=== PATIENT | male | born 1955 | race American Indian/Alaskan Native ===

== ENCOUNTER 2017-04-19 17:14 | Emergency (ER) | payer MEDICARE ==
[2017-04-19 18:14] LABS: Basophils % (Auto) 0.7 % (0.0-1.8); Eosinophils % (Auto) 2.4 % (0.0-4.3); Hematocrit 34.1 % (35.5-45.6); Mean Corpuscular HGB Conc 32 % (32-34); Mean Corpuscular Hemoglobin 28 pg (28-32); Mean Corpuscular Volume 88 fl (84-94); Platelet Count 138 K/mm3 (140-440); Red Blood Count 3.89 M/mm3 (3.65-5.03); Red Cell Distribution Width 19.6 % (13.2-15.2); White Blood Count 3.7 K/mm3 (4.5-11.0)
[2017-04-19 18:38] LABS: Albumin 4.2 g/dL (3.9-5); Albumin/Globulin Ratio 1.2 %; Alkaline Phosphatase 129 units/L (35-129); Anion Gap 26 mmol/L; BUN/Creatinine Ratio 4.22; Blood Urea Nitrogen 46 mg/dL (9-20); Calcium 9.7 mg/dL (8.4-10.2); Carbon Dioxide 25 mmol/L (22-30); Glucose 117 mg/dL (75-100); Potassium 5.5 mmol/L (3.6-5.0); Sodium 133 mmol/L (137-145); Total Protein 7.6 g/dL (6.3-8.2)
[2017-04-19 18:52] LABS: Alanine Aminotransferase < 5 units/L (7-56)
--- NOTE | 2017-04-19 19:13 | Emergency Department Report ---
ED General Adult HPI - General Chief complaint: Altered Mental Status Stated complaint: AMS Time Seen by Provider: 04/19/17 17:49 Source: patient Mode of arrival: Stretcher Limitations: No Limitations - History of Present Illness Initial comments: Patient is a 61-year-old male past medical history of chronic kidney disease gets dialysis Saturday and Saturday. Cool was [facility] in [facility] for altered mental status. Patient is alert and oriented and he tells me that he doesn't know why he was sent here. Patient is able to have a conversation about many different subjects without any flight from the idea. Patient has no suicidal or homicidal ideation. Patient is blind. Patient denies being in any pain. And patient knows that he had dialysis yesterday. No paperwork was brought in from jail Behavior patient was exhibiting - Related Data Previous Rx's Medication Instructions Recorded Last Taken Type Folic Acid [Folvite] 1 mg PO QDAY tablet 08/01/15 1 Day Ago Rx Folic Acid [Folvite] 1 mg PO QDAY #30 tablet 10/14/16 Unknown Rx Gabapentin [Neurontin] 200 mg PO BID #60 capsule 10/14/16 Unknown Rx Isosorbide Dinitrate 30 mg PO DAILY #30 tablet 10/14/16 Unknown Rx Levofloxacin [Levaquin TAB] 250 mg PO Q48H #3 tablet 10/14/16 Unknown Rx Metoprolol [Lopressor TAB] 25 mg PO BID #60 tablet 10/14/16 Unknown Rx Sertraline [Zoloft] 75 mg PO QDAY #15 tablet 10/14/16 Unknown Rx Sevelamer Carbonate [Renvela] 800 mg PO TIDWM #60 tablet 10/14/16 Unknown Rx risperiDONE [RisperDAL] 1 mg PO BID #15 tablet 10/14/16 Unknown Rx traZODone [Desyrel] 50 mg PO QHS PRN #15 tablet 10/14/16 Unknown Rx Allergies Allergy/AdvReac Type Severity Reaction Status Date / Time haloperidol [From Haldol] AdvReac Unknown Verified 10/12/16 10:47 haloperidol lactate AdvReac Unknown Verified 10/12/16 10:47 [From Haldol] ED Review of Systems ROS: Stated complaint: AMS Other details as noted in HPI Constitutional: denies: chills, fever Eyes: as per HPI. denies: eye discharge, vision change ENT: denies: ear pain, throat pain Respiratory: denies: cough, shortness of breath, wheezing Cardiovascular: denies: chest pain, palpitations Endocrine: no symptoms reported Gastrointestinal: denies: abdominal pain, nausea, diarrhea Genitourinary: denies: urgency, dysuria Musculoskeletal: denies: back pain, joint swelling, arthralgia Skin: denies: rash, lesions Neurological: denies: headache, weakness, paresthesias Psychiatric: denies: anxiety, depression Hematological/Lymphatic: denies: easy bleeding, easy bruising ED Past Medical Hx - Past Medical History Hx Hypertension: Yes Hx CVA: Yes Hx Heart Attack/AMI: No Hx Congestive Heart Failure: No Hx Diabetes: Yes Hx Renal Disease: Yes (TTS dialysis (Dr. Layne)) Hx Asthma: No Hx COPD: No Hx HIV: No Additional medical history: A. FIB; Legally Blind. Anemia. Hyperparathyroidism. Hypocalcemia - Surgical History Hx Open Heart Surgery: Yes Hx Pacemaker: (defibrillator) Hx Internal Defibrillator: Yes Hx Appendectomy: Yes Additional Surgical History: AV fistula in the left upper extremity, hemorrhoidectomy - Social History Smoking Status: Never Smoker Substance Use Type: None - Medications Home Medications: Home Medications Medication Instructions Recorded Confirmed Last Taken Type Folic Acid [Folvite] 1 mg PO QDAY tablet 08/01/15 04/19/17 1 Day Ago Rx Folic Acid [Folvite] 1 mg PO QDAY #30 tablet 10/14/16 04/19/17 Unknown Rx Gabapentin [Neurontin] 200 mg PO BID #60 capsule 10/14/16 04/19/17 Unknown Rx Isosorbide Dinitrate 30 mg PO DAILY #30 tablet 10/14/16 04/19/17 Unknown Rx Levofloxacin [Levaquin TAB] 250 mg PO Q48H #3 tablet 10/14/16 04/19/17 Unknown Rx Metoprolol [Lopressor TAB] 25 mg PO BID #60 tablet 10/14/16 04/19/17 Unknown Rx Sertraline [Zoloft] 75 mg PO QDAY #15 tablet 10/14/16 04/19/17 Unknown Rx Sevelamer Carbonate [Renvela] 800 mg PO TIDWM #60 tablet 10/14/16 04/19/17 Unknown Rx risperiDONE [RisperDAL] 1 mg PO BID #15 tablet 10/14/16 04/19/17 Unknown Rx traZODone [Desyrel] 50 mg PO QHS PRN #15 tablet 10/14/16 04/19/17 Unknown Rx ED Physical Exam - General Limitations: No Limitations General appearance: alert, in no apparent distress - Head Head exam: Present: atraumatic, normocephalic - Eye Eye exam: Present: other (blind bilateraly ) - ENT ENT exam: Present: mucous membranes moist - Neck Neck exam: Present: normal inspection - Respiratory Respiratory exam: Present: normal lung sounds bilaterally. Absent: respiratory distress - Cardiovascular Cardiovascular Exam: Present: regular rate, normal rhythm. Absent: systolic murmur, diastolic murmur, rubs, gallop - GI/Abdominal GI/Abdominal exam: Present: soft, normal bowel sounds - Rectal Rectal exam: Present: deferred - Extremities Exam Extremities exam: Present: other (left AV fistula) - Back Exam Back exam: Present: normal inspection - Neurological Exam Neurological exam: Present: alert, oriented X3 - Psychiatric Psychiatric exam: Present: normal affect, normal mood - Skin Skin exam: Present: warm, dry, intact, normal color. Absent: rash ED Course Vital Signs 04/19/17 17:37 Temperature 98.2 F Pulse Rate 68 Respiratory 16 Rate Blood Pressure 142/62 O2 Sat by Pulse 96 Oximetry ED Medical Decision Making - Lab Data Result diagrams: 04/19/17 17:58 04/19/17 17:58 Lab Results 04/19/17 04/19/17 Range/Units 17:58 17:58 WBC 3.7 L (4.5-11.0) K/mm3 RBC 3.89 (3.65-5.03) M/mm3 Hgb 11.0 L (11.8-15.2) gm/dl Hct 34.1 L (35.5-45.6) % MCV 88 (84-94) fl MCH 28 (28-32) pg MCHC 32 (32-34) % RDW 19.6 H (13.2-15.2) % Plt Count 138 L (140-440) K/mm3 Lymph % (Auto) 11.1 L (13.4-35.0) % Travis % (Auto) 4.0 (0.0-7.3) % Eos % (Auto) 2.4 (0.0-4.3) % Baso % (Auto) 0.7 (0.0-1.8) % Lymph # 0.4 L (1.2-5.4) K/mm3 Travis # 0.1 (0.0-0.8) K/mm3 Eos # 0.1 (0.0-0.4) K/mm3 Baso # 0.0 (0.0-0.1) K/mm3 Seg Neutrophils % 81.8 H (40.0-70.0) % Seg Neutrophils # 3.0 (1.8-7.7) K/mm3 Sodium 133 L (137-145) mmol/L Potassium 5.5 H (3.6-5.0) mmol/L Chloride 88.0 L (98-107) mmol/L Carbon Dioxide 25 (22-30) mmol/L Anion Gap 26 mmol/L BUN 46 H (9-20) mg/dL Creatinine 10.9 H (0.8-1.5) mg/dL Estimated GFR 6 ml/min BUN/Creatinine Ratio 4.22 % Glucose 117 H (75-100) mg/dL Calcium 9.7 (8.4-10.2) mg/dL Total Bilirubin 0.50 (0.1-1.2) mg/dL AST 8 (5-40) units/L ALT < 5 L (7-56) units/L Alkaline Phosphatase 129 (35-129) units/L Total Protein 7.6 (6.3-8.2) g/dL Albumin 4.2 (3.9-5) g/dL Albumin/Globulin Ratio 1.2 % - EKG Data -: EKG Interpreted by Me - EKG Data 04/19/17 19:12 EKG shows normal sinus rhythm normal axis no ST segment elevation or peak T waves or any T-wave inversion. - Radiology Data Radiology results: report reviewed, image reviewed Chest x-ray: Shows cardiomegaly no acute cardiopulmonary disease - Medical Decision Making Chief medical diagnosis: Hyperkalemia Differential medical diagnosis: Hypoglycemia, pneumonia, uremia On the EKG CBC CMP and chest x-ray Patient's laboratory findings are within normal limits. Patient only has mildly elevated potassium and is scheduled to get dialysis tomorrow. Patient is not altered through my and the nurses assessment since he came here. Discussed plan with patient and he agrees with plan. I will send patient back to jail. Critical care attestation.: If time is entered above; I have spent that time in minutes in the direct care of this critically ill patient, excluding procedure time. ED Disposition Clinical Impression: ESRD (end stage renal disease), Confusion Disposition: DC-01 TO HOME OR SELFCARE Is pt being admited?: No Does the pt Need Aspirin: No Condition: Stable Instructions: Chronic Kidney Disease (ED) Referrals: PRIMARY CARE, [Primary Care Provider] - 3-5 Days
--- NOTE | 2017-04-19 20:03 | XRay Report ---
FINAL REPORT EXAM: XR CHEST 1V AP HISTORY: cxr altered mental status TECHNIQUE: AP portable view of the chest PRIORS: None. FINDINGS: Lines, tubes, and devices: Metallic device overlies the heart. An endovascular stent graft is present in the left axillary region. Lungs and pleura: Trachea is normal in position. Lungs are clear of infiltrate, pleural effusion, vascular congestion, or pneumothorax. Cardiomediastinal silhouette: Cardiac silhouette is enlarged.. Other: Bony structures are intact. IMPRESSION: No acute cardiopulmonary process seen. Cardiomegaly.
[2017-04-20 04:29] VITALS: BP 168/82
== END 2017-04-20 01:30 | disposition home or self-care (01) ==
LOC: ED 17:14
DX: E11.22 Type 2 diabetes mellitus with diabetic chronic kidney disease (principal); R41.0 Disorientation, unspecified; I12.0 Hypertensive chronic kidney disease with stage 5 chronic kidney disease or end stage renal disease; N18.6 End stage renal disease; Z99.2 Dependence on renal dialysis
CPT/HCPCS: 36415; 71010; 80053; 85025; 93005; 93010; 99284

== ENCOUNTER 2017-11-14 07:05 | Outpatient (CLI) | payer MEDICARE ==
--- NOTE | 2017-11-18 13:56 | PET Report ---
PET/CT:11/14/17 07:05:00 CLINICAL: Right lower lung nodule. RADIOPHARMACEUTICAL: 13.039mCi F18-FDG. COMPARISON: None. TECHNIQUE- Following intravenous injection of F-18 FDG and an approximately 60 minute uptake period, CT and PET images from the mid skull to the upper thighs were acquired with the patient in the fasted state. No contrast was administered. The CT protocol used for this PET CT study is designed for attenuation correction and anatomic localization of PET abnormalities. This cottrell blower CT is not desired to produce and cannot replace, [id number] diagnostic CT scans with specific imaging protocols for different body parts and indications. Plasma glucose at the time of this test: 98g/dl. The standardized uptake values (SUV) are normalized to patient body weight and indicate the highest activity concentration (SUV max) in a given disease site. FINDINGS: Brain--Physiologic FDG uptake in the visualized regions of the brain. Neck--Physiologic FDG uptake in mucosal structures. Chest--Physiologic FDG uptake in mediastinal blood pool and myocardium. Lungs--No abnormal uptake. A 1.3 cm noncalcified pleural-based nodule of the superior segment of the right lower lobe. It demonstrates minimal FDG uptake with SUV 2.39. No other lung nodule. Multilobar bilateral diffuse groundglass lung opacities. Pleura/pericardium--No abnormal uptake. Thoracic nodes--No abnormal uptake. Calcified mediastinal and right hilar lymph nodes. Hepatobiliary--No abnormal uptake. Liver background SUV mean, as a reference for comparing FDG studies, is 3.2 . No liver mass. Spleen--No abnormal uptake. Pancreas--No abnormal uptake. Adrenal Glands--No abnormal uptake. Kidneys/Ureters/Bladder--No abnormal uptake. The kidneys are small with bilateral renal parenchymal thinning and normal nondilated renal collecting systems and ureters. Abdominopelvic Nodes--No abnormal uptake. Bowel/Peritoneum/Mesentery--No abnormal uptake. Pelvic organs--No abnormal uptake. Bones/Soft Tissues--No abnormal uptake. Nonspecific diffuse increase density of the skeleton. IMPRESSION- 1. A 1.3 cm noncalcified pleural-based right lower lobe superior segment lung nodule with mild FDG uptake. It may be amenable to CT-guided percutaneous needle biopsy. 2. Nonspecific multilobar bilateral diffuse groundglass like opacity. 3. Nonspecific increased density of the bones with differential including renal osteodystrophy and prostate cancer metastasis.
== END 2017-11-14 07:06 | disposition home or self-care (01) ==
LOC: PET 07:05
PROVIDERS: ATTEND Internal Medicine Pulmonary Disease
DX: C78.89 Secondary malignant neoplasm of other digestive organs (principal); N25.0 Renal osteodystrophy; R91.1 Solitary pulmonary nodule; Z77.090 Contact with and (suspected) exposure to asbestos; Z79.899 Other long term (current) drug therapy
CPT/HCPCS: 78815; 82962; A9552

== ENCOUNTER 2018-01-20 07:42 | Day surgery (SDC) | payer MEDICARE ==
[~2018-01-20 07:42] MED LIST: ANCEF/STERILE WATER 2 GM/20 ML 2 GM/20 ML SYRINGE IV NR; NACL 0.9% 1000 ML 1,000 ML IV SCH
[2018-01-20 09:11] LABS: Hematocrit 33.7 % (35.5-45.6); Hemoglobin 10.6 gm/dl (11.8-15.2); Red Blood Count 4.03 M/mm3 (3.65-5.03)
[2018-01-20 09:12] LABS: Basophils % (Auto) 0.6 % (0.0-1.8); Eosinophils # (Auto) 0.2 K/mm3 (0.0-0.4); Eosinophils % (Auto) 5.9 % (0.0-4.3); Lymphocytes # (Auto) 0.7 K/mm3 (1.2-5.4); Lymphocytes % (Auto) 20.8 % (13.4-35.0); Mean Corpuscular HGB Conc 31 % (32-34); Mean Corpuscular Hemoglobin 26 pg (28-32); Mean Corpuscular Volume 84 fl (84-94); Monocytes # (Auto) 0.4 K/mm3 (0.0-0.8); Monocytes % (Auto) 12.6 % (0.0-7.3); Platelet Count 167 K/mm3 (140-440); Red Cell Distribution Width 19.9 % (13.2-15.2)
[2018-01-20 09:31] LABS: Calcium 9.7 mg/dL (8.4-10.2)
[2018-01-20] MEDS ORDERED: DIPRIVAN 10 MG/ML IV ONE (10:36)
[2018-01-20] MEDS ORDERED: DILAUDID ONE (10:56)
[2018-01-20] MEDS ORDERED: XYLOCAINE MPF 2% ONE (10:56)
[2018-01-20] MEDS ORDERED: MARCAINE 0.5% 0 ML INFILTRATI ONE (11:04)
[2018-01-20] MEDS ORDERED: ZOFRAN ONE (11:05)
--- NOTE | 2018-01-20 12:34 | Short Stay Summary ---
Short Stay Documentation Date of service: 01/20/18 Narrative H&P: See H&P - History H&P: obtained from office - Allergies and Medications Current Medications: Allergies haloperidol [From Haldol] Adverse Reaction (Verified 10/12/16 10:47) Unknown haloperidol lactate [From Haldol] Adverse Reaction (Verified 10/12/16 10:47) Unknown Home Medications Medication Instructions Recorded Confirmed Last Taken Type Folic Acid [Folvite] 1 mg PO QDAY tablet 08/01/15 01/20/18 01/19/18 09:00 Rx Sertraline [Zoloft] 75 mg PO QDAY #15 tablet 10/14/16 01/20/18 01/19/18 09:00 Rx Sevelamer Carbonate [Renvela] 800 mg PO TIDWM #60 tablet 10/14/16 01/14/18 1 Week Ago Rx ~11/13/17 risperiDONE [RisperDAL] 1 mg PO BID #15 tablet 10/14/16 01/20/18 01/19/18 17:00 Rx traZODone [Desyrel] 50 mg PO QHS PRN #15 tablet 10/14/16 01/20/18 01/19/18 19: 00 Rx Aspirin EC [Aspirin Enteric Coated 81 mg PO QDAY #30 tablet 10/02/17 01/20/18 09:00 Rx TAB] Gabapentin [Neurontin] 100 mg PO QHS #60 capsule 10/02/17 01/20/18 01/19/18 19: 00 Rx ISOSORBIDE MONOnitrate [Imdur ER] 30 mg PO DAILY #30 tablet 10/02/17 01/20/18 09:00 Rx Metoprolol [Lopressor TAB] 50 mg PO BID #30 tablet 10/02/17 01/20/18 01/19/18 17 :00 Rx Minoxidil [Loniten] 2.5 mg PO BID #60 tablet 10/02/17 01/20/18 01/19/18 17:00 Rx Active Medications Cefazolin Sodium (Ancef/Sterile Water 2 Gm/20 Ml) 2 gm in 20 mls @ 80 mls/hr IV PREOP NR; Protocol Stop: 01/20/18 23:59 Sodium Chloride (Nacl 0.9% 1000 Ml) 1,000 mls @ 42 mls/hr IV DIRECT SANCHEZ Last Admin: 01/20/18 09:15 Dose: 42 mls/hr - Brief post op/procedure progress note Date of procedure: 01/20/18 Pre-op diagnosis: Left Fourth Toe Infection Post-op diagnosis: same Procedure: Amputation of Left Fourth Toe Anesthesia: MIGUEL Surgeon: JOSUÉ CROUCH Estimated blood loss: 50-100ml Pathology: list (left fourth toe) Specimen disposition: to lab Condition: stable - Disposition Condition at discharge: Good Disposition: DC/[place]-03 [facility] Short Stay Discharge Plan Wound: remove dressing (48 Hours) Follow up with: PRIMARY CARE, [Primary Care Provider] - 7 Days JOSUÉ CROUCH MD [Staff Physician] - 14 Days Prescriptions: HYDROcodone/APAP 7.5-325 [[place] 7.5/325] 1 each PO Q6HR PRN #40 tablet PRN Reason: Pain
--- NOTE | 2018-01-20 12:43 | Operative Report ---
Operative Report Operative Report: Date of Procedure: 01/20/2018 Pre-operative Diagnosis: Left Fourth Toe Infection Post-operative Diagnosis: Same Procedure(s): Amputation of Left Fourth Toe Surgeon: Rubin Francis M.D. House Worker: None Anesthesia: Gen. Endotracheal Anesthesia EBL: Minimal Counts: Correct Complications: None Condition: Stable Findings: Fourth toe was amputated with excellent bleeding edges no evidence of purulence at the base. Specimen: Left fourth toe sent to pathology. Indication: The patient is a 62-year-old male with a history of ulceration of the left fourth toe and a remote history of left fifth toe amputation. He had an ultrasound that demonstrated adequate arterial flow for healing however despite local wound care he was unable to heal the wound. He is in need of left fourth toe limitation. He was given the risks, benefits, and alternative procedures and consents to the procedure. Description of Procedure: The patient was brought to the operating room and laid in supine position. After general endotracheal anesthesia was achieved his left foot was prepped and draped in usual sterile fashion. A circumferential incision was created at the base of the toe and carried down to the proximal phalanx using cautery. The toe was then transected at the metacarpophalangeal joint. Hemostasis was achieved with direct pressure and cautery. There was tension and difficulty closing the wound so I extended the incision proximally along the fourth metacarpal and then created dermal flaps on the medial and lateral aspect of the incision. Once these flaps were created and was unable to close the incision in 2 layers using 3-0 Vicryl in interrupted fashion the deep dermal layer and 2-0 Ethilon in interrupted vertical mattress fashion to reapproximate the skin. The wound was then dressed with Xeroform gauze, Kerlix roll, and a 4 inch Davion bandage. The patient tolerated the procedure well. All sponge, needle , and instrument counts were correct. The patient was taken to the recovery area in stable condition.
[2018-01-20] MEDS ORDERED: ALBURX 25% (ALBUMIN) IV ONE (13:00)
[2018-01-20 16:04] VITALS: BP 128/78
--- NOTE | 2018-01-20 19:30 | Anesthesia Day of Surgery ---
Anesthesia Day of Surgery - Day of Surgery Patient Examined: Yes Patient H&P Reviewed: Yes Patient is NPO: Yes
--- NOTE | 2018-01-20 19:30 | Anesthesia Consultation ---
Anesthesia Consult and Med Hx Date of service: 01/20/18 - Airway Anesthetic Teeth Evaluation: Poor, Edentulous ROM Head & Neck: Adequate Mental/Hyoid Distance: Adequate Mallampati Class: Class III Intubation Access Assessment: Possibly Difficult - Pulmonary Exam CTA: Yes - Cardiac Exam Cardiac Exam: RRR - Pre-Operative Health Status ASA Pre-Surgery Classification: ASA4 Proposed Anesthetic Plan: General - Pulmonary Hx Smoking: No Hx Asthma: No COPD: No Hx Pneumonia: No Hx Sleep Apnea: No (QUIQUE PRE SCREEN HIGH RISK) - Cardiovascular System Hx Hypertension: Yes Hx Heart Attack/AMI: No Hx Pacemaker: Yes (defibrillator) Hx Internal Defibrillator: Yes - Central Nervous System CVA: Yes (STATES NO DEFICITS) Hx Psychiatric Problems: Yes (HX SUCIDE THOUGHTS, PARANOID) - Endocrine Hx Renal Disease: Yes (TTS dialysis (Dr. Layne)) Hx End Stage Renal Disease: Yes - Hematic Hx Anemia: Yes - Other Systems Hx Cancer: No
--- NOTE | 2018-01-20 19:31 | Post Anesthesia Evaluation ---
- Post Anesthesia Evaluation Patient Participated: Yes Airway Patent: Yes Stable Respiratory Function: Yes Nausea/Vomiting: No Temp > 96.8F: Yes Pain Manageable: Yes Adequeate Hydration: Yes Anesthesia Complications: No
== END 2018-01-20 15:44 ==
LOC: OR 07:42
PROVIDERS: ATTEND Surgery Vascular Surgery
DX: M86.672 Other chronic osteomyelitis, left ankle and foot (principal); I70.245 Atherosclerosis of native arteries of left leg with ulceration of other part of foot; I70.262 Atherosclerosis of native arteries of extremities with gangrene, left leg; I12.0 Hypertensive chronic kidney disease with stage 5 chronic kidney disease or end stage renal disease; N18.6 End stage renal disease; Z99.2 Dependence on renal dialysis; Z88.8 Allergy status to other drugs, medicaments and biological substances; Z95.810 Presence of automatic (implantable) cardiac defibrillator; Z86.73 Personal history of transient ischemic attack (TIA), and cerebral infarction without residual deficits
CPT/HCPCS: 28820; 36415; 80048; 82962; 85025; 88305; 88311; J0690; J1170; J2405; J2704; J7030; P9047

== ENCOUNTER 2018-08-26 11:45 | Inpatient (IN) | payer MEDICARE ==
[2018-08-26 13:07] LABS: Hematocrit 27.9 % (35.5-45.6); Hemoglobin 8.7 gm/dl (11.8-15.2); Mean Corpuscular HGB Conc 31 % (32-34); Mean Corpuscular Volume 84 fl (84-94); Platelet Count 128 K/mm3 (140-440); Red Blood Count 3.34 M/mm3 (3.65-5.03)
--- NOTE | 2018-08-26 13:07 | XRay Report ---
AP CHEST: HISTORY: Infection AP view of the chest demonstrates a normal mediastinal and cardiac contour with clear lungs and normal bony and soft tissue structures. IMPRESSION: No acute process.
[2018-08-26 13:08] LABS: Red Cell Distribution Width 23.9 % (13.2-15.2)
--- NOTE | 2018-08-26 13:18 | History and Physical Report ---
History of Present Illness Chief complaint: confused History of present illness: 63 YO Male [facility] Facility Resident at [facility] Resident with HTN, CAD S/P CABG, CVA, DM, Atrial Fib, Anemia, Hyperparathyroidism, Hypocalcemia, ESRD on HD, Schizophrenia presents to ED for evaluation. Pt confused and lethargic and unable to provide history. Pt history taken from SNF staff, ED staff, and medical record. Pt presents to ED for evaluation. Pt was seen and evaluated as per nephrology service, and was found to have malfunctioning AV Fistula and request Vascular surgery evaluation for AVF evaluation. Vascular surgery service notified by Nephrology team. Pt seen and evaluated in ED and found to have ESRD, Encephalopathy, Sinus Bradycardia. Pt found to have poor prognosis. Pt admitted to IMCU. per staff, the patient was found to be confused and lethargic. EMS was notified, and upon arrival the patient was confused and lethargic. Pt transported to [facility] for evaluation. Pt seen and evaluated in ED and found to have ESRD, Encephalopathy, and acute respiratory failure. Pt is able to protect his airway. Pt admitted to medical floor. Nephrology team consulted in ED. Past History Past Medical History: COPD, diabetes, ESRD, heart failure, hypertension, stroke Past Surgical History: appendectomy, CABG, Other (hemorrhoidectomy, AV Fistula, ICD) Social history: . denies: smoking, alcohol abuse, prescription drug abuse Family history: diabetes, hypertension - History of Present Illness Initial Comments: Mr. Mims is a 63 yo male with hx of HTN, diabetes, schizophrenia, ESRD on HD referred to ED by nephrology service for evaluation of LUE AVF infection. Concerned for fistula abscess. Mr. Mims is nonverbal. Most recently admitted to hospital June 11. Hx is limited. Hx obtained through EMR and documentation from HD center. According discharge summary, family did consider but declined hospice care. He is a [place] resident. MD Complaint: decreased responsiveness -: month(s) (several months) Severity: severe Consistency of Symptoms: getting worse Context: history of similar presen Associated Symptoms: other (nonverbal) - Related Data Home Medications Medication Instructions Recorded Confirmed Last Taken Acetaminophen [Acetaminophen TAB] 1,000 mg PO Q12H PRN 03/13/18 06/04/18 Unknown Insulin Aspart [NovoLOG Flexpen] 0 units SUB-Q QWEEK 03/13/18 06/04/18 Unknown Sertraline [Zoloft] 50 mg PO DAILY 03/13/18 06/04/18 Unknown risperiDONE [RisperDAL] 1 mg PO Q12H 03/13/18 06/04/18 Unknown Aspirin EC [Aspirin Enteric Coated 81 mg PO DAILY 03/18/18 06/04/18 Unknown TAB] Docusate Sodium [Colace CAP] 100 mg PO BID 03/18/18 06/04/18 Unknown Folic Acid [Folvite] 1 mg PO DAILY 03/18/18 06/04/18 Unknown ISOSORBIDE MONOnitrate [Imdur ER] 30 mg PO DAILY 03/18/18 06/04/18 Unknown Metoprolol [Lopressor TAB] 50 mg PO BID 03/18/18 06/04/18 Unknown Minoxidil [Loniten] 2.5 mg PO BID 03/18/18 06/04/18 Unknown Sevelamer Carbonate [Renvela] 800 mg PO TIDWM 03/18/18 06/04/18 Unknown Previous Rx's Medication Instructions Recorded Last Taken Type Gabapentin [Neurontin] 100 mg PO QHS #60 capsule 10/02/17 01/19/18 19:00 Rx Morphine ER [Ms Contin ER] 15 mg PO Q12H #7 tablet 03/15/18 Unknown Rx HYDROcodone/APAP 5-325 [[place] 1 each PO Q12HR PRN #7 tablet 05/22/18 Unknown Rx 5-325 mg TAB] Famotidine [Pepcid] 20 mg PO DAILY #30 tablet 06/09/18 Unknown Rx Allergies Allergy/AdvReac Type Severity Reaction Status Date / Time haloperidol [From Haldol] AdvReac Unknown Verified 03/13/18 12:10 haloperidol lactate AdvReac Unknown Verified 03/13/18 12:10 [From Haldol] ED Review of Systems ROS: Stated complaint: POS PORT INFECTION Other details as noted in HPI Comment: Unobtainable due to pts medical conditions (AMS, chronically ill) ED Past Medical Hx - Past Medical History Previous Medical History?: Yes Hx Hypertension: Yes Hx CVA: Yes Hx Heart Attack/AMI: No Hx Congestive Heart Failure: Yes Hx Diabetes: Yes Hx Renal Disease: Yes (TTS dialysis (Dr. Layne)) Hx Asthma: No Hx COPD: No Hx HIV: No Additional medical history: A. FIB; Legally Blind. Iron-deficiency Anemia. Hyperparathyroidism. Hypocalcemia. renal osteodystrophy - Surgical History Past Surgical History?: Yes Hx Open Heart Surgery: Yes Hx Pacemaker: Yes (defibrillator) Hx Internal Defibrillator: Yes Hx Appendectomy: Yes Additional Surgical History: AV fistula in the left upper extremity, he morrhoidectomy - Social History Smoking Status: Unknown if ever smoked Substance Use Type: None - Medications Past History Past Medical History: atrial fib, anemia, CAD, diabetes, heart failure, hypertension, stroke Past Surgical History: appendectomy, CABG, Other (ICD, Hemorrhoidectomy) Social history: Family history: CAD, diabetes, hypertension Medications and Allergies Allergies Allergy/AdvReac Type Severity Reaction Status Date / Time haloperidol [From Haldol] AdvReac Unknown Verified 03/13/18 12:10 haloperidol lactate AdvReac Unknown Verified 03/13/18 12:10 [From Haldol] Home Medications Medication Instructions Recorded Confirmed Last Taken Type Gabapentin [Neurontin] 100 mg PO QHS #60 capsule 10/02/17 06/04/18 01/19/18 19:00 Rx Acetaminophen [Acetaminophen TAB] 1,000 mg PO Q12H PRN 03/13/18 06/04/18 Unknown History Insulin Aspart [NovoLOG Flexpen] 0 units SUB-Q QWEEK 03/13/18 06/04/18 Unknown History Sertraline [Zoloft] 50 mg PO DAILY 03/13/18 06/04/18 Unknown History risperiDONE [RisperDAL] 1 mg PO Q12H 03/13/18 06/04/18 Unknown History Morphine ER [Ms Contin ER] 15 mg PO Q12H #7 tablet 03/15/18 06/04/18 Unknown Rx Aspirin EC [Aspirin Enteric Coated 81 mg PO DAILY 03/18/18 06/04/18 Unknown History TAB] Docusate Sodium [Colace CAP] 100 mg PO BID 03/18/18 06/04/18 Unknown History Folic Acid [Folvite] 1 mg PO DAILY 03/18/18 06/04/18 Unknown History ISOSORBIDE MONOnitrate [Imdur ER] 30 mg PO DAILY 03/18/18 06/04/18 Unknown History Metoprolol [Lopressor TAB] 50 mg PO BID 03/18/18 06/04/18 Unknown History Minoxidil [Loniten] 2.5 mg PO BID 03/18/18 06/04/18 Unknown History Sevelamer Carbonate [Renvela] 800 mg PO TIDWM 03/18/18 06/04/18 Unknown History HYDROcodone/APAP 5-325 [[place] 1 each PO Q12HR PRN #7 tablet 05/22/18 06/04/18 U nknown Rx 5-325 mg TAB] Famotidine [Pepcid] 20 mg PO DAILY #30 tablet 06/09/18 Unknown Rx Review of Systems ROS unobtainable: due to mental status Exam - Constitutional Vitals: Temp Pulse Resp BP Pulse Ox 49 L 14 126/62 99 08/26/18 11:51 08/26/18 11:51 08/26/18 11:51 08/26/18 11:51 General appearance: Present: mild distress - EENT Eyes: Present: miosis - Neck Neck: Present: supple, normal ROM - Respiratory Respiratory effort: labored Respiratory: bilateral: diminished - Cardiovascular Rhythm: other (bradycardia) Heart Sounds: Present: S1 & S2 - Extremities Extremity abnormal: edema Peripheral Pulses: abnormal (1+,= bilaterally) - Abdominal General gastrointestinal: Present: soft, non-tender, non-distended, normal bowel sounds Male genitourinary: Present: normal - Integumentary Integumentary: Present: clear, dry, clammy, decreased turgor - Musculoskeletal Musculoskeletal: generalized weakness - Psychiatric Psychiatric: no appropriate mood/affect, no intact judgment & insight, no memory intact - Neurologic Neurologic: no focal deficits, moves all extremities, no gait normal Results - Labs CBC & Chem 7: 08/26/18 12:51 08/26/18 12:51 Labs: Abnormal lab results 08/26/18 Range/Units 12:51 WBC 3.2 L (4.5-11.0) K/mm3 RBC 3.34 L (3.65-5.03) M/mm3 Hgb 8.7 L (11.8-15.2) gm/dl Hct 27.9 L (35.5-45.6) % MCH 26 L (28-32) pg MCHC 31 L (32-34) % RDW 23.9 H (13.2-15.2) % Plt Count 128 L (140-440) K/mm3 Assessment and Plan - Patient Problems (1) End-stage renal disease needing dialysis Current Visit: Yes Status: Chronic Plan to address problem: Nephrology consulted in ED, dialysis as per renal team, strict I/O, monitor uop q shift, (2) Encephalopathy Current Visit: Yes Status: Acute Plan to address problem: CT head, neuro checks, Aspiration precautions, fall precautions, (3) Bradycardia Current Visit: No Status: Acute Plan to address problem: Remote telemetry, Admit to IMCU, Atropine at bedside. (4) AV fistula occlusion Current Visit: Yes Status: Acute Qualifiers: Encounter type: initial encounter Qualified Code(s): T82.898A - Other specified complication of vascular prosthetic devices, implants and grafts, initial encounter Plan to address problem: vascular surgery notified as per renal team, Consult placed as per renal team for AVF evaluation. (5) DVT prophylaxis Current Visit: No Status: Acute Plan to address problem: SCD to BLE while in bed
[2018-08-26] MEDS ORDERED: SODIUM CHLORIDE FLUSH SYRINGE 10 ML IV PRN (13:19)
[2018-08-26] MEDS ORDERED: PROVENTIL IH PRN (13:19)
[2018-08-26] MEDS ORDERED: ZOFRAN IV PRN (13:19)
[2018-08-26 13:30] LABS: Albumin 2.5 g/dL (3.9-5); Calcium 9.5 mg/dL (8.4-10.2)
--- NOTE | 2018-08-26 13:39 | Emergency Department Report ---
ED Altered Mental Status HPI - General Chief Complaint: Extremity Injury, Upper Stated Complaint: POS PORT INFECTION Time Seen by Provider: 08/26/18 12:44 Source: EMS Mode of arrival: Stretcher Limitations: Physical Limitation, Other - History of Present Illness Initial Comments: Mr. Mims is a 63 yo male with hx of HTN, diabetes, schizophrenia, ESRD on HD referred to ED by nephrology service for evaluation of LUE AVF infection. Concerned for fistula abscess. Mr. Mims is nonverbal. Most recently admitted to hospital June 11. Hx is limited. Hx obtained through EMR and documentation from HD center. According discharge summary, family did consider but declined hospice care. He is a [place] resident. MD Complaint: decreased responsiveness -: month(s) (several months) Severity: severe Consistency of Symptoms: getting worse Context: history of similar presen Associated Symptoms: other (nonverbal) - Related Data Home Medications Medication Instructions Recorded Confirmed Last Taken Acetaminophen [Acetaminophen TAB] 1,000 mg PO Q12H PRN 03/13/18 06/04/18 Unknown Insulin Aspart [NovoLOG Flexpen] 0 units SUB-Q QWEEK 03/13/18 06/04/18 Unknown Sertraline [Zoloft] 50 mg PO DAILY 03/13/18 06/04/18 Unknown risperiDONE [RisperDAL] 1 mg PO Q12H 03/13/18 06/04/18 Unknown Aspirin EC [Aspirin Enteric Coated 81 mg PO DAILY 03/18/18 06/04/18 Unknown TAB] Docusate Sodium [Colace CAP] 100 mg PO BID 03/18/18 06/04/18 Unknown Folic Acid [Folvite] 1 mg PO DAILY 03/18/18 06/04/18 Unknown ISOSORBIDE MONOnitrate [Imdur ER] 30 mg PO DAILY 03/18/18 06/04/18 Unknown Metoprolol [Lopressor TAB] 50 mg PO BID 03/18/18 06/04/18 Unknown Minoxidil [Loniten] 2.5 mg PO BID 03/18/18 06/04/18 Unknown Sevelamer Carbonate [Renvela] 800 mg PO TIDWM 03/18/18 06/04/18 Unknown Previous Rx's Medication Instructions Recorded Last Taken Type Gabapentin [Neurontin] 100 mg PO QHS #60 capsule 10/02/17 01/19/18 19:00 Rx Morphine ER [Ms Contin ER] 15 mg PO Q12H #7 tablet 03/15/18 Unknown Rx HYDROcodone/APAP 5-325 [[place] 1 each PO Q12HR PRN #7 tablet 05/22/18 Unknown Rx 5-325 mg TAB] Famotidine [Pepcid] 20 mg PO DAILY #30 tablet 06/09/18 Unknown Rx Allergies Allergy/AdvReac Type Severity Reaction Status Date / Time haloperidol [From Haldol] AdvReac Unknown Verified 03/13/18 12:10 haloperidol lactate AdvReac Unknown Verified 03/13/18 12:10 [From Haldol] ED Review of Systems ROS: Stated complaint: POS PORT INFECTION Other details as noted in HPI Comment: Unobtainable due to pts medical conditions (AMS, chronically ill) ED Past Medical Hx - Past Medical History Previous Medical History?: Yes Hx Hypertension: Yes Hx CVA: Yes Hx Heart Attack/AMI: No Hx Congestive Heart Failure: Yes Hx Diabetes: Yes Hx Renal Disease: Yes (TTS dialysis (Dr. Layne)) Hx Asthma: No Hx COPD: No Hx HIV: No Additional medical history: A. FIB; Legally Blind. Iron-deficiency Anemia. Hyperparathyroidism. Hypocalcemia. renal osteodystrophy - Surgical History Past Surgical History?: Yes Hx Open Heart Surgery: Yes Hx Pacemaker: Yes (defibrillator) Hx Internal Defibrillator: Yes Hx Appendectomy: Yes Additional Surgical History: AV fistula in the left upper extremity, hemorrhoidectomy - Social History Smoking Status: Unknown if ever smoked Substance Use Type: None - Medications Home Medications: Home Medications Medication Instructions Recorded Confirmed Last Taken Type Gabapentin [Neurontin] 100 mg PO QHS #60 capsule 10/02/17 06/04/18 01/19/18 19:00 Rx Acetaminophen [Acetaminophen TAB] 1,000 mg PO Q12H PRN 03/13/18 06/04/18 Unknown History Insulin Aspart [NovoLOG Flexpen] 0 units SUB-Q QWEEK 03/13/18 06/04/18 Unknown History Sertraline [Zoloft] 50 mg PO DAILY 03/13/18 06/04/18 Unknown History risperiDONE [RisperDAL] 1 mg PO Q12H 03/13/18 06/04/18 Unknown History Morphine ER [Ms Contin ER] 15 mg PO Q12H #7 tablet 03/15/18 06/04/18 Unknown Rx Aspirin EC [Aspirin Enteric Coated 81 mg PO DAILY 03/18/18 06/04/18 Unknown History TAB] Docusate Sodium [Colace CAP] 100 mg PO BID 03/18/18 06/04/18 Unknown History Folic Acid [Folvite] 1 mg PO DAILY 03/18/18 06/04/18 Unknown History ISOSORBIDE MONOnitrate [Imdur ER] 30 mg PO DAILY 03/18/18 06/04/18 Unknown History Metoprolol [Lopressor TAB] 50 mg PO BID 03/18/18 06/04/18 Unknown History Minoxidil [Loniten] 2.5 mg PO BID 03/18/18 06/04/18 Unknown History Sevelamer Carbonate [Renvela] 800 mg PO TIDWM 03/18/18 06/04/18 Unknown History HYDROcodone/APAP 5-325 [[place] 1 each PO Q12HR PRN #7 tablet 05/22/18 06/04/18 Unknown Rx 5-325 mg TAB] Famotidine [Pepcid] 20 mg PO DAILY #30 tablet 06/09/18 Unknown Rx ED Physical Exam - General Limitations: Physical Limitation, Other General appearance: lethargic - Head Head exam: Present: atraumatic, normocephalic - Eye Eye exam: Present: other (right eye purulent discharge ?prosthesis no globe pr esent, left eye sluggish) - ENT ENT exam: Present: mucous membranes dry - Neck Neck exam: Present: normal inspection - Respiratory Respiratory exam: Absent: wheezes, rales, rhonchi - Cardiovascular Cardiovascular Exam: Present: bradycardia. Absent: rubs, gallop - GI/Abdominal GI/Abdominal exam: Present: soft, distended - Extremities Exam Extremities exam: Present: other (LUE healing scab in area of AV F, no erythema no tenderness) - Neurological Exam Neurological exam: Present: other (lethargic, no response to voice pain or voice.) - Psychiatric Psychiatric exam: Present: flat affect ED Course Vital Signs 08/26/18 08/26/18 11:50 11:51 Pulse Rate 49 L 49 L Respiratory 14 14 Rate Blood Pressure 126/62 Blood Pressure 126/62 [Right] O2 Sat by Pulse 99 99 Oximetry - Lab Data Result diagrams: 08/26/18 12:51 08/26/18 12:51 Lab Results 08/26/18 08/26/18 Range/Units 12:51 12:51 WBC 3.2 L (4.5-11.0) K/mm3 RBC 3.34 L (3.65-5.03) M/mm3 Hgb 8.7 L (11.8-15.2) gm/dl Hct 27.9 L (35.5-45.6) % MCV 84 (84-94) fl MCH 26 L (28-32) pg MCHC 31 L (32-34) % RDW 23.9 H (13.2-15.2) % Plt Count 128 L (140-440) K/mm3 [place] % (Auto) Yarn Mercerizer Operator Add Manual Diff Complete Total Counted 100 Seg Neuts % (Manual) 75.0 H (40.0-70.0) % Band Neutrophils % 0 % Lymphocytes % (Manual) 4.0 L (13.4-35.0) % Reactive Lymphs % (Man) 0 % Monocytes % (Manual) 6.0 (0.0-7.3) % Eosinophils % (Manual) 15.0 H (0.0-4.3) % Basophils % (Manual) 0 (0.0-1.8) % Metamyelocytes % 0 % Myelocytes % 0 % Promyelocytes % 0 % Blast Cells % 0 % Nucleated RBC % Not Reportable Seg Neutrophils # Man 2.4 (1.8-7.7) K/mm3 Band Neutrophils # 0.0 K/mm3 Lymphocytes # (Manual) 0.1 L (1.2-5.4) K/mm3 Abs React Lymphs (Man) 0.0 K/mm3 Monocytes # (Manual) 0.2 (0.0-0.8) K/mm3 Eosinophils # (Manual) 0.5 H (0.0-0.4) K/mm3 Basophils # (Manual) 0.0 (0.0-0.1) K/mm3 Metamyelocytes # 0.0 K/mm3 Myelocytes # 0.0 K/mm3 Promyelocytes # 0.0 K/mm3 Blast Cells # 0.0 K/mm3 WBC Morphology Not Reportable Hypersegmented Neuts Not Reportable Hyposegmented Neuts Not Reportable Hypogranular Neuts Not Reportable Smudge Cells Not Reportable Toxic Granulation Not Reportable Toxic Vacuolation Not Reportable Dohle Bodies Not Reportable Pelger-Huet Anomaly Not Reportable Tramaine Rods Not Reportable Platelet Estimate Consistent w auto Clumped Platelets Not Reportable Plt Clumps, EDTA Not Reportable Large Platelets Not Reportable Giant Platelets Not Reportable Platelet Satelliting Not Reportable Plt Morphology Comment Not Reportable RBC Morphology Not Reportable Dimorphic RBCs Not Reportable Polychromasia Not Reportable Hypochromasia Not Reportable Poikilocytosis 1+ Anisocytosis 1+ Microcytosis Not Reportable Macrocytosis Not Reportable Spherocytes Not Reportable Pappenheimer Bodies Not Reportable Sickle Cells Not Reportable Target Cells 1+ Tear Drop Cells Not Reportable Ovalocytes Few Helmet Cells Not Reportable [place] Bodies Not Reportable [place] Rings Not Reportable Hebert Cells Not Reportable Bite Cells Not Reportable Crenated Cell Not Reportable Elliptocytes Not Reportable Acanthocytes (Spur) Not Reportable Rouleaux Not Reportable Hemoglobin C Crystals Not Reportable Schistocytes Not Reportable Malaria parasites Not Reportable Jose Juan Bodies Not Reportable Hem Pathologist Commnt No Sodium 136 L (137-145) mmol/L Potassium 3.5 L (3.6-5.0) mmol/L Chloride 95.5 L (98-107) mmol/L Carbon Dioxide 31 H (22-30) mmol/L Anion Gap 13 mmol/L BUN 27 H (9-20) mg/dL Creatinine 5.1 H (0.8-1.5) mg/dL Estimated GFR 14 ml/min BUN/Creatinine Ratio 5 % Glucose 78 (75-100) mg/dL Calcium 9.5 (8.4-10.2) mg/dL Total Bilirubin 0.50 (0.1-1.2) mg/dL AST 12 (5-40) units/L ALT 8 (7-56) units/L Alkaline Phosphatase 102 (35-129) units/L Total Protein 6.1 L (6.3-8.2) g/dL Albumin 2.5 L (3.9-5) g/dL Albumin/Globulin Ratio 0.7 % - Medical Decision Making Mr. Mims presents with lethargy, bradycardia. Recent hospitalization for sepsis. AV fistula/access possible sepsis source according to nephrology service. I highly appreciate the assistance of Dr. Teran who provided orders for treatment and admission. Critical care attestation.: If time is entered above; I have spent that time in minutes in the direct care of this critically ill patient, excluding procedure time. ED Disposition Clinical Impression: End-stage renal disease needing dialysis Disposition: OP ADMIT IP TO THIS HOSP Is pt being admited?: Yes Does the pt Need Aspirin: No Condition: Fair
[2018-08-26 13:57] LABS: Basophils % (Manual) 0 % (0.0-1.8); Total Cells Counted 100
[2018-08-26 13:58] LABS: Anisocytosis 1+; Ovalocytes Few; Platelet Estimate Consistent w Auto; Poikilocytosis 1+; Target Cells 1+
[2018-08-26] MEDS ORDERED: ATROPINE IV ONE (15:36)
--- NOTE | 2018-08-26 17:21 | Consultation ---
History of Present Illness - Reason for Consult Consult date: 08/26/18 end stage renal disease Requesting physician: PADMA ODELL - History of Present Illness 63 YO Male Longterm Facility Resident at [facility] Resident with HTN, CAD S/P CABG, CVA, DM, Atrial Fib, Anemia, Hyperparathyroidism, Hypocalcemia, ESRD on HD, Schizophrenia presents to ED for evaluation. Pt confused and lethargic and unable to provide history. Pt history taken from SNF staff, ED staff, and medical record. Pt presents to ED for evaluation. Pt was seen and evaluated as per nephrology service, and was found to have malfunctioning AV Fistula and request Vascular surgery evaluation for AVF evaluation. Pt admitted to [facility]. Patient seen in the IMCU. Poor historian. Unable to get any additional information from him. Information obtained from patient's current chart. He undergoes hemodialysis at [facility] on TTS schedule. He was found to have an ulcerated area over his AV fistula. Therefore he was not dialyzed and sent to the emergency room for evaluation. His last dialysis treatment was on Saturday Past History Past Medical History: atrial fib, anemia, CAD, diabetes, heart failure, hypertension, stroke Past Surgical History: appendectomy, CABG, Other (ICD, Hemorrhoidectomy) Social history: Family history: CAD, diabetes, hypertension Medications and Allergies Allergies Allergy/AdvReac Type Severity Reaction Status Date / Time haloperidol [From Haldol] AdvReac Unknown Verified 03/13/18 12:10 haloperidol lactate AdvReac Unknown Verified 03/13/18 12:10 [From Haldol] Home Medications Medication Instructions Recorded Confirmed Last Taken Type Gabapentin [Neurontin] 100 mg PO QHS #60 capsule 10/02/17 06/04/18 01/19/18 19:0 0 Rx Acetaminophen [Acetaminophen TAB] 1,000 mg PO Q12H PRN 03/13/18 06/04/18 Unknown History Insulin Aspart [NovoLOG Flexpen] 0 units SUB-Q QWEEK 03/13/18 06/04/18 Unknown History Sertraline [Zoloft] 50 mg PO DAILY 03/13/18 06/04/18 Unknown History risperiDONE [RisperDAL] 1 mg PO Q12H 03/13/18 06/04/18 Unknown History Morphine ER [Ms Contin ER] 15 mg PO Q12H #7 tablet 03/15/18 06/04/18 Unknown Rx Aspirin EC [Aspirin Enteric Coated 81 mg PO DAILY 03/18/18 06/04/18 Unknown History TAB] Docusate Sodium [Colace CAP] 100 mg PO BID 03/18/18 06/04/18 Unknown History Folic Acid [Folvite] 1 mg PO DAILY 03/18/18 06/04/18 Unknown History ISOSORBIDE MONOnitrate [Imdur ER] 30 mg PO DAILY 03/18/18 06/04/18 Unknown History Metoprolol [Lopressor TAB] 50 mg PO BID 03/18/18 06/04/18 Unknown History Minoxidil [Loniten] 2.5 mg PO BID 03/18/18 06/04/18 Unknown History Sevelamer Carbonate [Renvela] 800 mg PO TIDWM 03/18/18 06/04/18 Unknown History HYDROcodone/APAP 5-325 [[place] 1 each PO Q12HR PRN #7 tablet 05/22/18 06/04/18 Unknown Rx 5-325 mg TAB] Famotidine [Pepcid] 20 mg PO DAILY #30 tablet 06/09/18 Unknown Rx Active Meds: Active Medications Acetaminophen (Tylenol) 650 mg PO Q4H PRN PRN Reason: Pain MILD(1-3)/Fever >100.5/HILL Albuterol (Proventil) 2.5 mg IH Q4HRT PRN PRN Reason: Shortness Of Breath Ondansetron HCl (Zofran) 4 mg IV Q8H PRN PRN Reason: Nausea And Vomiting Sodium Chloride (Sodium Chloride Flush Syringe 10 Ml) 10 ml IV BID SANCHEZ Sodium Chloride (Sodium Chloride Flush Syringe 10 Ml) 10 ml IV PRN PRN PRN Reason: LINE FLUSH Review of Systems ROS unobtainable: due to mental status Exam - Vital Signs Vital signs: Vital Signs Pulse Resp BP Pulse Ox 49 L 14 126/62 99 08/26/18 11:50 08/26/18 11:50 08/26/18 11:50 08/26/18 11:50 - General Appearance General appearance: well-developed, well-nourished, appears stated age EENT: PERRL, mucous membranes moist Neck: Present: neck supple, trachea midline. Absent: JVD/HJR, Masses Respiratory: Clear to Ascultation Heart: regular, irregularly irregular, normal heart rate, S1S2, no murmurs Gastrointestinal: Present: normal, normoactive bowel sounds Integumentary: no rash, other (1+ edema. AV fistula left upper arm. Good bruit and thrill. Ulcerated area noted over the access) Results - Lab Results 08/26/18 12:51 08/26/18 12:51 Most recent lab results Calcium 9.5 mg/dL (8.4-10.2) 08/26/18 12:51 Assessment and Plan Impression * End-stage renal disease and maintenance hemodialysis * Ulceration over AV access * Altered mental status * Schizophrenia * Chronic atrial fibrillation * Hypertension * Coronary artery disease * History of CVA Recommendations * Electrolyte and volume status appears to be acceptable today * No urgent indication for dialysis today * Plan to dialyze him tomorrow after evaluated by vascular surgery * No IV, BP or venipuncture in his access arm * Adjust diet and meds for ESRD state * Avoid nephrotoxins * Procrit with dialysis * Binders with meals * For the plan as per primary team and vascular surgery * Thank you very much for the consultation. Shall follow her along with you
[2018-08-26] MEDS ORDERED: NACL 0.9% 100 ML IV PRN (17:22)
--- NOTE | 2018-08-26 17:23 | Cat Scan Report ---
FINAL REPORT PROCEDURE: CT HEAD WO CONTRAST TECHNIQUE: Computerized tomography of the head was performed without contrast material. HISTORY: Altered mental status COMPARISON: Prior CT scan of the brain 05/13/2018 FINDINGS: Brain: There is no evidence of intracranial hemorrhage. No parenchymal hemorrhage is seen. No mass lesions or mass effect is identified. No abnormal extra-axial fluid collections or masses are seen. There is a moderate-sized old area of encephalomalacia involving the left cerebellar hemisphere. This is unchanged. There also smaller areas of encephalomalacia visualized in the posterior superior aspe ct of the right and left frontal lobes. There is some decreased density seen in the periventricular white matter without mass effect. This i s fairly symmetric and does not exhibit any mass effect consistent with gliosis probably on the basis of microvascular disease or white matter changes of aging. Ventricles: The ventricles, sulcal pattern and fissures are prominent consistent with atrophy. There is asymmetric prominence of the right lateral ventricle which appears to be secondary to the adjacent encephalomalacia and ex vacuo affect. This is unchanged. Bones: No evidence of acute fracture. 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 This was seen on the prior study. IMPRESSION: Stable exam. There is evidence of atrophy and gliosis. There is also evidence of old areas of encepha lomalacia right and left frontal lobes posteriorly superiorly and in the left cerebellar hemisphere. If symptoms persist or worsen consider follow-up CT scan or MRI for further evaluation. 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 This is unchanged.
--- NOTE | 2018-08-26 17:46 | Consultation ---
History of Present Illness - Reason for Consult Consult date: 08/26/18 - History of Present Illness 63yo AAM admitted via the [facility] ER due to an ulcerated LUE AVG. The pt is a poor historian. The history was taken from this and previous medical records. The avg was created by Dr Chaparro many years ago (initially as an avf then converted to AVG). No reports of fever per the nursing staff. A vascular surgery consult was requested to further evaluate. 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 denies: smoking, alcohol abuse Family history: CAD, diabetes, hypertension Medications and Allergies Allergies Allergy/AdvReac Type Severity Reaction Status Date / Time haloperidol [From Haldol] AdvReac Unknown Verified 03/13/18 12:10 haloperidol lactate AdvReac Unknown Verified 03/13/18 12:10 [From Haldol] Home Medications Medication Instructions Recorded Confirmed Last Taken Type Gabapentin [Neurontin] 100 mg PO QHS #60 capsule 10/02/17 08/26/18 01/19/18 19:00 Rx Acetaminophen [Acetaminophen TAB] 1,000 mg PO Q12H PRN 03/13/18 08/26/18 Unknown History Insulin Aspart [NovoLOG Flexpen] 0 units SUB-Q QWEEK 03/13/18 08/26/18 Unknown History risperiDONE [RisperDAL] 1 mg PO QAM 03/13/18 08/26/18 Unknown History Morphine ER [Ms Contin ER] 15 mg PO Q12H #7 tablet 03/15/18 08/26/18 Unknown Rx Aspirin EC [Aspirin Enteric Coated 81 mg PO DAILY 03/18/18 08/26/18 Unknown History TAB] Docusate Sodium [Colace CAP] 100 mg PO BID 03/18/18 08/26/18 Unknown History Folic Acid [Folvite] 1 mg PO DAILY 03/18/18 08/26/18 Unknown History ISOSORBIDE MONOnitrate [Imdur ER] 30 mg PO DAILY 03/18/18 08/26/18 Unknown History Metoprolol [Lopressor TAB] 50 mg PO BID 03/18/18 08/26/18 Unknown History Minoxidil [Loniten] 2.5 mg PO BID 03/18/18 08/26/18 Unknown History Sevelamer Carbonate [Renvela] 800 mg PO TIDWM 03/18/18 08/26/18 Unknown History HYDROcodone/APAP 5-325 [[place] 1 each PO Q12HR PRN #7 tablet 05/22/18 08/26/18 Unknown Rx 5-325 mg TAB] Famotidine [Pepcid] 20 mg PO DAILY #30 tablet 06/09/18 08/26/18 Unknown Rx Sertraline [Zoloft] 100 mg PO QDAY 08/26/18 08/26/18 Unknown History risperiDONE [Risperdal] 0.5 mg PO HS 08/26/18 08/26/18 Unknown History Active Meds: Active Medications Acetaminophen (Tylenol) 650 mg PO Q4H PRN PRN Reason: Pain MILD(1-3)/Fever >100.5/HILL Albuterol (Proventil) 2.5 mg IH Q4HRT PRN PRN Reason: Shortness Of Breath Sodium Chloride (Nacl 0.9%) 100 mls @ 999 mls/hr IV UMA PRN PRN Reason: Hypotension Cefazolin Sodium (Ancef/Sterile Water 2 Gm/20 Ml) 2 gm in 20 mls @ 80 mls/hr IV PREOP NR; Protocol Stop: 08/27/18 08:14 Ondansetron HCl (Zofran) 4 mg IV Q8H PRN PRN Reason: Nausea And Vomiting Sodium Chloride (Sodium Chloride Flush Syringe 10 Ml) 10 ml IV BID SANCHEZ Sodium Chloride (Sodium Chloride Flush Syringe 10 Ml) 10 ml IV PRN PRN PRN Reason: LINE FLUSH Review of Systems ROS unobtainable: due to mental status Exam - Constitutional Vitals: Temp Pulse Resp BP Pulse Ox 46 L 12 119/56 100 08/26/18 15:46 08/26/18 16:30 08/26/18 15:46 08/26/18 16:30 General appearance: Present: no acute distress - EENT Eyes: Absent: EOM intact (visually impaired) - Neck Neck: Present: supple - Respiratory Respiratory effort: normal - Extremities Extremities: abnormal (Palpable thrill LUE AVG, dime sized ulceration without erythema or drainage ~mid-graft) Extremity abnormal: edema (LUE swelling) - Psychiatric Psychiatric: no appropriate mood/affect, no intact judgment & insight, no cooperative - Neurologic Neurologic: other (rouses to verbal stimulus, but does not interact.) Results - Labs CBC & Chem 7: 08/26/18 12:51 08/26/18 12:51 Labs: Abnormal lab results 08/26/18 08/26/18 08/26/18 Range/Units 12:51 12:51 15:38 WBC 3.2 L (4.5-11.0) K/mm3 RBC 3.34 L (3.65-5.03) M/mm3 Hgb 8.7 L (11.8-15.2) gm/dl Hct 27.9 L (35.5-45.6) % MCH 26 L (28-32) pg MCHC 31 L (32-34) % RDW 23.9 H (13.2-15.2) % Plt Count 128 L (140-440) K/mm3 Seg Neuts % (Manual) 75.0 H (40.0-70.0) % Lymphocytes % (Manual) 4.0 L (13.4-35.0) % Eosinophils % (Manual) 15.0 H (0.0-4.3) % Lymphocytes # (Manual) 0.1 L (1.2-5.4) K/mm3 Eosinophils # (Manual) 0.5 H (0.0-0.4) K/mm3 Sodium 136 L (137-145) mmol/L Potassium 3.5 L (3.6-5.0) mmol/L Chloride 95.5 L (98-107) mmol/L Carbon Dioxide 31 H (22-30) mmol/L BUN 27 H (9-20) mg/dL Creatinine 5.1 H (0.8-1.5) mg/dL Lactic Acid 0.60 L (0.7-2.0) mmol/L Total Protein 6.1 L (6.3-8.2) g/dL Albumin 2.5 L (3.9-5) g/dL Assessment and Plan This patient was taken for HD today and noted to have an ulceration to the LUE AVG. Dialysis was not completed, and the pt was sent to the ER for further evaluation. A vascular surgery consult was requested to further evaluate. Pt will be set up for Perma-cath placement to provide reliable HD access, and a fistulagram to further eval for surgical options. Revision of access vs new access based upon these results. - Patient Problems (1) AV graft malfunction Current Visit: Yes Status: Acute (2) End stage renal disease on dialysis Current Visit: No Status: Chronic (3) Diabetes Current Visit: No Status: Acute (4) HTN (hypertension) Current Visit: No Status: Chronic Qualifiers: Hypertension type: essential hypertension Qualified Code(s): I10 - Essential (primary) hypertension (5) Altered mental status Current Visit: No Status: Chronic Qualifiers:
[2018-08-27 06:39] LABS: Basophils % (Auto) 1.4 % (0.0-1.8); Eosinophils # (Auto) 0.2 K/mm3 (0.0-0.4); Eosinophils % (Auto) 7.4 % (0.0-4.3); Hemoglobin 10.9 gm/dl (11.8-15.2); Lymphocytes # (Auto) 0.6 K/mm3 (1.2-5.4); Lymphocytes % (Auto) 19.2 % (13.4-35.0); Mean Corpuscular HGB Conc 31 % (32-34); Mean Corpuscular Volume 84 fl (84-94); Monocytes # (Auto) 0.4 K/mm3 (0.0-0.8); Monocytes % (Auto) 13.2 % (0.0-7.3); Platelet Count 120 K/mm3 (140-440); Red Blood Count 4.23 M/mm3 (3.65-5.03); Red Cell Distribution Width 24.1 % (13.2-15.2)
[2018-08-27 06:40] LABS: Hematocrit 35.6 % (35.5-45.6)
[2018-08-27 06:58] LABS: Calcium 9.7 mg/dL (8.4-10.2)
[2018-08-27] MEDS ORDERED: ANCEF/STERILE WATER 2 GM/20 ML 2 GM/20 ML SYRINGE IV NR (07:00)
[2018-08-27] MEDS: SODIUM CHLORIDE FLUSH SYRINGE 10 ML IV SCH ×2 (07:58→21:55)
[2018-08-27] MEDS ORDERED: VERSED ONE (08:28)
[2018-08-27] MEDS ORDERED: HEPARIN/NS 5000 UNIT/500ML(CATH LAB) 1,000 ML IR ONE (08:29)
[2018-08-27] MEDS ORDERED: SUBLIMAZE ONE (08:29)
[2018-08-27] MEDS ORDERED: NACL 0.9% 250ML 250 ML ONE (08:30)
[2018-08-27] MEDS: XYLOCAINE 2% INFILTRATI ONE ×3 (09:23→09:35)
[2018-08-27] MEDS ORDERED: ANCEF/STERILE WATER 2 GM/20 ML 2 GM/20 ML SYRINGE IV ONE (09:29)
[2018-08-27] MEDS: HEPARIN 10,000 UNITS/10 ML ONE ×2 (09:29→09:30)
[2018-08-27] MEDS ORDERED: LOPRESSOR PO SCH (10:00)
--- NOTE | 2018-08-27 10:18 | Operative Report ---
Operative Report Operative Report: Exam: Ultrasound and fluoroscopic guided placement of tunneled hemodialysis catheter, fistulogram with venoplasty Clinical indication: Patient with left upper extremity AV fistula with ulceration, fistulogram for preoperative planning, dialysis catheter placement for access Date: 08/27/2018 Procedure: Following an explanation of the risks, benefits and alternatives; written informed consent was obtained. The patient was brought to the angiographic suite and placed in supine position on the examination table. Initial ultrasound of the evaluation of his neck demonstrated patent internal jugular veins bilaterally. The right neck was chosen. The right neck was prepped and draped in the usual sterile fashion. 1% lidocaine was used for anesthesia. Under ultrasound guidance, the right internal jugular vein was cannulated with a 7 cm 18-gauge needle. A 0.035 guidewire was advanced into the IVC under fluoroscopy for anchoring and to document venous positioning. The needle was removed. An appropriate catheter exit site was chosen along the lateral right chest wall. 1% lidocaine was used for anesthesia at the catheter exit site and along the tunnel tract. A Bard 23 Glidepath tunneled hemodialysis catheter was then tunneled antegrade from the catheter exit site to the venotomy site. Following serial dilation over the guidewire under fluoroscopy, a 15 [place] peel-away sheath was placed over the guidewire under fluoroscopy and advanced centrally. The trocar and guidewire were removed. The catheter was placed with a peel-away sheath and positioned with the tip in the proximal right atrium. The peel-away sheath was removed. Both ports flushed and aspirated easily and more than lock with appropriate volumes with heparin. The venotomy site was closed using 3-0 Vicryl suture. 3-0 Vicryl suture was also applied to the catheter exit site. Sterile dressings were then applied. Attention was then turned to the patient's left upper extremity AV graft. Under ultrasound guidance, after was cannulated towards the venous anastomosis using a 7 cm 21-gauge needle. A 0.018 guidewire was advanced centrally. The needle was removed and a micro-sheath placed. The 0.018 guidewire was exchanged for a 0.035 guidewire and the micro-sheath exchanged for a 7 [place] vascular sheath. Venogram performed through the sheath demonstrates the body of the graft with extreme tortuosity. In the upper arm, there are tortuous fractured/crushed stents. Distal to the stents there is an area of 80% stenosis involving the axillary vein. Central veins are widely patent. With the aid of her vertebral catheter, the guidewire was advanced across the stenosis. Angioplasty was performed using a 10 mm balloon. Post angioplasty imaging demonstrated reduction of the stenosis to less than 20%. Brisk flow is present throughout the left. At this point, the catheters, guidewires and sheaths were removed and hemostasis achieved using 4-0 Vicryl suture and Dermabond. Manual compression was also utilized. A sterile dressing was then applied. The patient tolerated the procedure well. There were no immediate post procedure complications. Conscious sedation was performed under the guidance of radiologic nursing. Continuous cardiopulmonary monitoring was utilized. Impression: 1) Ultrasound and fluoroscopic guided placement of tunneled hemodialysis catheter via the right internal jugular vein. 2) Left upper extremity fistulogram demonstrating 80% stenosis within the axillary vein. Proximal to this there are numerous crushed and broken stents.
--- NOTE | 2018-08-27 12:07 | Progress Note ---
Assessment and Plan The patient will need penitentiary access. We will order ultrasound of the upper extremities to determine the best options for long-term access. Subjective Date of service: 08/27/18 Principal diagnosis: malfunctioning dialysis access Interval history: Patient with a history of left upper extremity AV graft with overlying skin ulceration. The graft does not appear to be overtly infected. The patient underwent placement of a right IJ PermCath and fistulogram of the graft. The graft demonstrates numerous stents extending into the axillary vein with stenosis. The central veins are widely patent. Objective - Constitutional Vitals: Vital Signs - 12hr 08/27/18 08/27/18 08/27/18 02:00 04:00 06:00 Temperature 96.8 F L Pulse Rate 46 L 55 L 57 L Respiratory 8 L 9 L 12 Rate Blood Pressure 131/53 171/73 166/138 08/27/18 08/27/18 08/27/18 11:00 11:15 11:30 Temperature 98.6 F Pulse Rate 45 L 48 L 46 L Respiratory 12 Rate Blood Pressure 96/46 96/46 112/55 General appearance: Present: no acute distress - EENT Eyes: PERRL, EOM intact ENT: hearing intact - Neck Neck: supple, normal ROM - Respiratory Respiratory effort: normal - Cardiovascular Rhythm: regular Extremities: abnormal - Gastrointestinal General gastrointestinal: Present: deferred Rectal Exam: deferred - Genitourinary Male genitourinary: deferred - Psychiatric Psychiatric: cooperative - Labs CBC & Chem 7: 08/27/18 05:59 08/27/18 05:59 Labs: Abnormal lab results 08/26/18 08/26/18 08/26/18 Range/Units 12:51 12:51 15:38 WBC 3.2 L (4.5-11.0) K/mm3 RBC 3.34 L (3.65-5.03) M/mm3 Hgb 8.7 L (11.8-15.2) gm/dl Hct 27.9 L (35.5-45.6) % MCH 26 L (28-32) pg MCHC 31 L (32-34) % RDW 23.9 H (13.2-15.2) % Plt Count 128 L (140-440) K/mm3 [place] % (Auto) (0.0-7.3) % Eos % (Auto) (0.0-4.3) % Lymph # (1.2-5.4) K/mm3 Seg Neuts % (Manual) 75.0 H (40.0-70.0) % Lymphocytes % (Manual) 4.0 L (13.4-35.0) % Eosinophils % (Manual) 15.0 H (0.0-4.3) % Lymphocytes # (Manual) 0.1 L (1.2-5.4) K/mm3 Eosinophils # (Manual) 0.5 H (0.0-0.4) K/mm3 Sodium 136 L (137-145) mmol/L Potassium 3.5 L (3.6-5.0) mmol/L Chloride 95.5 L (98-107) mmol/L Carbon Dioxide 31 H (22-30) mmol/L BUN 27 H (9-20) mg/dL Creatinine 5.1 H (0.8-1.5) mg/dL Glucose (75-100) mg/dL Lactic Acid 0.60 L (0.7-2.0) mmol/L Total Protein 6.1 L (6.3-8.2) g/dL Albumin 2.5 L (3.9-5) g/dL 08/27/18 08/27/18 Range/Units 05:59 05:59 WBC 3.3 L (4.5-11.0) K/mm3 RBC (3.65-5.03) M/mm3 Hgb 10.9 L (11.8-15.2) gm/dl Hct (35.5-45.6) % MCH 26 L (28-32) pg MCHC 31 L (32-34) % RDW 24.1 H (13.2-15.2) % Plt Count 120 L (140-440) K/mm3 [place] % (Auto) 13.2 H (0.0-7.3) % Eos % (Auto) 7.4 H (0.0-4.3) % Lymph # 0.6 L (1.2-5.4) K/mm3 Seg Neuts % (Manual) (40.0-70.0) % Lymphocytes % (Manual) (13.4-35.0) % Eosinophils % (Manual) (0.0-4.3) % Lymphocytes # (Manual) (1.2-5.4) K/mm3 Eosinophils # (Manual) (0.0-0.4) K/mm3 Sodium 133 L (137-145) mmol/L Potassium (3.6-5.0) mmol/L Chloride 95.3 L (98-107) mmol/L Carbon Dioxide (22-30) mmol/L BUN 32 H (9-20) mg/dL Creatinine 5.7 H (0.8-1.5) mg/dL Glucose 65 L (75-100) mg/dL Lactic Acid (0.7-2.0) mmol/L Total Protein (6.3-8.2) g/dL Albumin (3.9-5) g/dL Medications & Allergies - Medications Allergies/Adverse Reactions: Allergies haloperidol [From Haldol] Adverse Reaction (Verified 03/13/18 12:10) Unknown haloperidol lactate [From Haldol] Adverse Reaction (Verified 03/13/18 12:10) Unknown Home Medications: Home Medications Medication Instructions Recorded Confirmed Last Taken Type Gabapentin [Neurontin] 100 mg PO QHS #60 capsule 10/02/17 08/26/18 01/19/18 19:00 Rx Acetaminophen [Acetaminophen TAB] 1,000 mg PO Q12H PRN 03/13/18 08/26/18 Unknown History Insulin Aspart [NovoLOG Flexpen] 0 units SUB-Q QWEEK 03/13/18 08/26/18 Unknown History risperiDONE [RisperDAL] 1 mg PO QAM 03/13/18 08/26/18 Unknown History Morphine ER [Ms Contin ER] 15 mg PO Q12H #7 tablet 03/15/18 08/26/18 Unknown Rx Aspirin EC [Aspirin Enteric Coated 81 mg PO DAILY 03/18/18 08/26/18 Unknown History TAB] Docusate Sodium [Colace CAP] 100 mg PO BID 03/18/18 08/26/18 Unknown History Folic Acid [Folvite] 1 mg PO DAILY 03/18/18 08/26/18 Unknown History ISOSORBIDE MONOnitrate [Imdur ER] 30 mg PO DAILY 03/18/18 08/26/18 Unknown History Metoprolol [Lopressor TAB] 50 mg PO BID 03/18/18 08/26/18 Unknown History Minoxidil [Loniten] 2.5 mg PO BID 03/18/18 08/26/18 Unknown History Sevelamer Carbonate [Renvela] 800 mg PO TIDWM 03/18/18 08/26/18 Unknown History HYDROcodone/APAP 5-325 [[place] 1 each PO Q12HR PRN #7 tablet 05/22/18 08/26/18 Unknown Rx 5-325 mg TAB] Famotidine [Pepcid] 20 mg PO DAILY #30 tablet 06/09/18 08/26/18 Unknown Rx Sertraline [Zoloft] 100 mg PO QDAY 08/26/18 08/26/18 Unknown History risperiDONE [Risperdal] 0.5 mg PO HS 08/26/18 08/26/18 Unknown History Active Medications: Generic Name Dose Route Start Last Admin Trade Name Freq PRN Reason Stop Dose Admin Acetaminophen 650 mg 08/26/18 13:19 Tylenol PO Q4H PRN Pain MILD(1-3)/Fever >100.5/HILL Albuterol 2.5 mg 08/26/18 13:19 Proventil IH Q4HRT PRN Shortness Of Breath Aspirin 81 mg 08/27/18 11:00 Halfprin Ec PO DAILY [facility] Docusate Sodium 100 mg 08/27/18 11:00 Colace PO BID [facility] Folic Acid 1 mg 08/27/18 10:00 Folvite PO DAILY [facility] Gabapentin 100 mg 08/27/18 22:00 Neurontin PO QHS [facility] Sodium Chloride 100 mls @ 999 mls/hr 08/26/18 17:22 Nacl 0.9% IV UMA PRN Hypotension Cefazolin Sodium 2 gm in 20 mls @ 80 mls/hr 08/27/18 07:00 08/27/18 09:27 Ancef/Sterile Water 2 Gm/20 Ml IV 08/27/18 23:59 20 mls PREOP NR Administration Protocol Isosorbide Mononitrate 30 mg 08/27/18 11:00 Imdur PO DAILY [facility] Metoprolol Tartrate 50 mg 08/27/18 10:00 Lopressor PO BID SANCHEZ Minoxidil 2.5 mg 08/27/18 10:00 Loniten PO BID [facility] Miscellaneous Medication 0.5 mg 08/27/18 22:00 Risperidone [Risperdal] PO HS [facility] Ondansetron HCl 4 mg 08/26/18 13:19 Zofran IV Q8H PRN Nausea And Vomiting Risperidone 1 mg 08/27/18 10:00 Risperdal PO QAM SANCHEZ Sertraline HCl 100 mg 08/27/18 10:00 Zoloft PO QDAY SANCHEZ Sodium Chloride 10 ml 08/26/18 22:00 08/27/18 07:58 Sodium Chloride Flush Syringe 10 Ml IV Not Given BID SANCHEZ Sodium Chloride 10 ml 08/26/18 13:19 Sodium Chloride Flush Syringe 10 Ml IV PRN PRN LINE FLUSH
--- NOTE | 2018-08-27 12:38 | Progress Note ---
Assessment and Plan Impression * End-stage renal disease and maintenance hemodialysis * Ulceration over AV access * Altered mental status * Schizophrenia * Chronic atrial fibrillation * Hypertension * Coronary artery disease * History of CVA Recommendations * Vascular surgery evaluation appreciated * Patient is now with a PermCath * Dialysis has been initiated. Tolerating well. * Continue dialysis on MWF schedule for now * His outpatient dialysis days are however TTS * No IV, BP or venipuncture in his access arm * Adjust diet and meds for ESRD state * Avoid nephrotoxins * Procrit with dialysis * Binders with meals Subjective Date of service: 08/27/18 Principal diagnosis: malfunctioning dialysis access Interval history: Patient is status post right IJ PermCath placement. Dialysis has been initiated. Tolerating well. Patient had received some sedation during the pro cedure and currently lethargic Objective - Vital Signs Vital signs: Vital Signs - 12hr 08/27/18 08/27/18 08/27/18 02:00 04:00 06:00 Temperature 96.8 F L Pulse Rate 46 L 55 L 57 L Respiratory 8 L 9 L 12 Rate Blood Pressure 131/53 171/73 166/138 O2 Sat by Pulse Oximetry 08/27/18 08/27/18 08/27/18 11:00 11:15 11:30 Temperature 98.6 F Pulse Rate 48 L 48 L 46 L Respiratory 10 L Rate Blood Pressure 96/46 96/46 112/55 O2 Sat by Pulse 99 Oximetry 08/27/18 08/27/18 08/27/18 11:45 12:00 12:15 Temperature Pulse Rate 47 L 49 L 49 L Respiratory Rate Blood Pressure 107/57 115/59 123/62 O2 Sat by Pulse Oximetry 08/27/18 12:30 Temperature Pulse Rate 54 L Respiratory Rate Blood Pressure 114/55 O2 Sat by Pulse Oximetry - General Appearance General appearance: well-developed, well-nourished, appears stated age EENT: PERRL, mucous membranes moist Neck: no JVD, no thyromegaly, no carotid bruit, supple, other (right IJ PermCath in place) Respiratory: Present: Clear to Ascultation Cardiology: regular, normal heart rate, S1S2, no murmurs Gastrointestinal: normal, normoactive bowel sounds Integumentary: other (left arm AV fistula. Ulceration noted over the access. Good bruit and thrill) - Lab 08/27/18 05:59 08/27/18 05:59 Most recent lab results Calcium 9.7 mg/dL (8.4-10.2) 08/27/18 05:59 Medications & Allergies - Medications Allergies/Adverse Reactions: Allergies haloperidol [From Haldol] Adverse Reaction (Verified 03/13/18 12:10) Unknown haloperidol lactate [From Haldol] Adverse Reaction (Verified 03/13/18 12:10) Unknown Home Medications: Home Medications Medication Instructions Recorded Confirmed Last Taken Type Gabapentin [Neurontin] 100 mg PO QHS #60 capsule 10/02/17 08/26/18 01/19/18 19:00 Rx Acetaminophen [Acetaminophen TAB] 1,000 mg PO Q12H PRN 03/13/18 08/26/18 Unknown History Insulin Aspart [NovoLOG Flexpen] 0 units SUB-Q QWEEK 03/13/18 08/26/18 Unknown History risperiDONE [RisperDAL] 1 mg PO QAM 03/13/18 08/26/18 Unknown History Morphine ER [Ms Contin ER] 15 mg PO Q12H #7 tablet 03/15/18 08/26/18 Unknown Rx Aspirin EC [Aspirin Enteric Coated 81 mg PO DAILY 03/18/18 08/26/18 Unknown History TAB] Docusate Sodium [Colace CAP] 100 mg PO BID 03/18/18 08/26/18 Unknown History Folic Acid [Folvite] 1 mg PO DAILY 03/18/18 08/26/18 Unknown History ISOSORBIDE MONOnitrate [Imdur ER] 30 mg PO DAILY 03/18/18 08/26/18 Unknown History Metoprolol [Lopressor TAB] 50 mg PO BID 03/18/18 08/26/18 Unknown History Minoxidil [Loniten] 2.5 mg PO BID 03/18/18 08/26/18 Unknown History Sevelamer Carbonate [Renvela] 800 mg PO TIDWM 03/18/18 08/26/18 Unknown History HYDROcodone/APAP 5-325 [[place] 1 each PO Q12HR PRN #7 tablet 05/22/18 08/26/18 Unknown Rx 5-325 mg TAB] Famotidine [Pepcid] 20 mg PO DAILY #30 tablet 06/09/18 08/26/18 Unknown Rx Sertraline [Zoloft] 100 mg PO QDAY 08/26/18 08/26/18 Unknown History risperiDONE [Risperdal] 0.5 mg PO HS 08/26/18 08/26/18 Unknown History Active Medications: Generic Name Dose Route Start Last Admin Trade Name Freq PRN Reason Stop Dose Admin Acetaminophen 650 mg 08/26/18 13:19 Tylenol PO Q4H PRN Pain MILD(1-3)/Fever >100.5/HILL Albuterol 2.5 mg 08/26/18 13:19 Proventil IH Q4HRT PRN Shortness Of Breath Aspirin 81 mg 08/27/18 11:00 Halfprin Ec PO DAILY [facility] Docusate Sodium 100 mg 08/27/18 11:00 Colace PO BID [facility] Folic Acid 1 mg 08/27/18 10:00 Folvite PO DAILY [facility] Gabapentin 100 mg 08/27/18 22:00 Neurontin PO QHS [facility] Sodium Chloride 100 mls @ 999 mls/hr 08/26/18 17:22 Nacl 0.9% IV UMA PRN Hypotension Cefazolin Sodium 2 gm in 20 mls @ 80 mls/hr 08/27/18 07:00 08/27/18 09:27 Ancef/Sterile Water 2 Gm/20 Ml IV 08/27/18 23:59 20 mls PREOP NR Administration Protocol Isosorbide Mononitrate 30 mg 08/27/18 11:00 Imdur PO DAILY [facility] Metoprolol Tartrate 50 mg 08/27/18 10:00 Lopressor PO BID [facility] Minoxidil 2.5 mg 08/27/18 10:00 Loniten PO BID [facility] Miscellaneous Medication 0.5 mg 08/27/18 22:00 Risperidone [Risperdal] PO HS [facility] Ondansetron HCl 4 mg 08/26/18 13:19 Zofran IV Q8H PRN Nausea And Vomiting Risperidone 1 mg 08/27/18 10:00 Risperdal PO QAM [facility] Sertraline HCl 100 mg 08/27/18 10:00 Zoloft PO QDAY [facility] Sodium Chloride 10 ml 08/26/18 22:00 08/27/18 07:58 Sodium Chloride Flush Syringe 10 Ml IV Not Given BID SANCHEZ Sodium Chloride 10 ml 08/26/18 13:19 Sodium Chloride Flush Syringe 10 Ml IV PRN PRN LINE FLUSH
--- NOTE | 2018-08-27 13:43 | Progress Note ---
Assessment and Plan Assessment and plan: --AV fistula malfunction; S/P vascular procedure vascular surgery evaluated the patient ,Ultrasound and fluoroscopic guided placement of tunneled hemodialysis catheter via the right internal jugular vein. Left upper extremity fistulogram demonstrating 80% stenosis within the axillary vein. Proximal to this there are numerous crushed and broken stents. --End-stage renal disease ; on hemodialysis Malfunctioning of AV graft , vascular procedure Nephrology evaluated the patient Patient had hemodialysis catheter, received hemodialysis today --Hypertension; moderate control, continue current antihypertensives When necessary hydralazine --Metabolic encephalopathy ; present on admission Symptoms slightly improved ,CT head ,no acute abnormality, Old findings, neuro checks, Aspiration precautions, fall precautions, --Bradycardia; patient has no symptoms Heart rate ranges in 40s and 50s, hold metoprolol Closely monitor --Legally blind/Rt prosthetic eye; abortive care --DVT prophylaxis ; SCD to BLE while in bed Closely monitor the patient and adjust the management as needed History Interval history: 63-year-old [facility] resident was admitted through emergency room with altered level of consciousness and malfunctioning of AV fistula Patient seen and examined medical records reviewed Patient underwent hemodialysis catheter placement Received hemodialysis at bedside Patient is minimally communicative and A confused, Not in acute distress Vital signs reviewed Hospitalist Physical - Constitutional Vitals: Temp Pulse Resp BP Pulse Ox 98.6 F 50 L 10 L 107/54 98 08/27/18 11:00 08/27/18 13:15 08/27/18 11:00 08/27/18 13:15 08/27/18 13:00 General appearance: Present: no acute distress, well-nourished, obese - EENT Eyes: Present: PERRL (prosthetic right eye) - Neck Neck: Present: supple, normal ROM - Respiratory Respiratory effort: normal Respiratory: bilateral: diminished, negative: rales, rhonchi, wheezing - Cardiovascular Rhythm: regular Heart Sounds: Present: S1 & S2 (bradycardia) - Extremities Extremities: no ischemia Extremity abnormal: edema - Abdominal General gastrointestinal: soft, non-tender, non-distended, normal bowel sounds - Integumentary Integumentary: Present: clear, warm - Psychiatric Psychiatric: other (minimally communicative ,confused) - Neurologic Neurologic: moves all extremities Results - Labs CBC & Chem 7: 08/27/18 05:59 08/27/18 05:59 Labs: Laboratory Last Values WBC 3.3 K/mm3 (4.5-11.0) L 08/27/18 05:59 RBC 4.23 M/mm3 (3.65-5.03) 08/27/18 05:59 Hgb 10.9 gm/dl (11.8-15.2) L 08/27/18 05:59 Hct 35.6 % (35.5-45.6) D 08/27/18 05:59 MCV 84 fl (84-94) 08/27/18 05:59 MCH 26 pg (28-32) L 08/27/18 05:59 MCHC 31 % (32-34) L 08/27/18 05:59 RDW 24.1 % (13.2-15.2) H 08/27/18 05:59 Plt Count 120 K/mm3 (140-440) L 08/27/18 05:59 Lymph % (Auto) 19.2 % (13.4-35.0) 08/27/18 05:59 [place] % (Auto) 13.2 % (0.0-7.3) H 08/27/18 05:59 Eos % (Auto) 7.4 % (0.0-4.3) H 08/27/18 05:59 Baso % (Auto) 1.4 % (0.0-1.8) 08/27/18 05:59 Lymph # 0.6 K/mm3 (1.2-5.4) L 08/27/18 05:59 [place] # 0.4 K/mm3 (0.0-0.8) 08/27/18 05:59 Eos # 0.2 K/mm3 (0.0-0.4) 08/27/18 05:59 Baso # 0.0 K/mm3 (0.0-0.1) 08/27/18 05:59 Add Manual Diff Complete 08/26/18 12:51 Total Counted 100 08/26/18 12:51 Seg Neutrophils % 58.8 % (40.0-70.0) 08/27/18 05:59 Seg Neuts % (Manual) 75.0 % (40.0-70.0) H 08/26/18 12:51 Band Neutrophils % 0 % 08/26/18 12:51 Lymphocytes % (Manual) 4.0 % (13.4-35.0) L 08/26/18 12:51 Reactive Lymphs % (Man) 0 % 08/26/18 12:51 Monocytes % (Manual) 6.0 % (0.0-7.3) 08/26/18 12:51 Eosinophils % (Manual) 15.0 % (0.0-4.3) H 08/26/18 12:51 Basophils % (Manual) 0 % (0.0-1.8) 08/26/18 12:51 Metamyelocytes % 0 % 08/26/18 12:51 Myelocytes % 0 % 08/26/18 12:51 Promyelocytes % 0 % 08/26/18 12:51 Blast Cells % 0 % 08/26/18 12:51 Nucleated RBC % Not Reportable 08/26/18 12:51 Seg Neutrophils # 2.0 K/mm3 (1.8-7.7) 08/27/18 05:59 Seg Neutrophils # Man 2.4 K/mm3 (1.8-7.7) 08/26/18 12:51 Band Neutrophils # 0.0 K/mm3 08/26/18 12:51 Lymphocytes # (Manual) 0.1 K/mm3 (1.2-5.4) L 08/26/18 12:51 Abs React Lymphs (Man) 0.0 K/mm3 08/26/18 12:51 Monocytes # (Manual) 0.2 K/mm3 (0.0-0.8) 08/26/18 12:51 Eosinophils # (Manual) 0.5 K/mm3 (0.0-0.4) H 08/26/18 12:51 Basophils # (Manual) 0.0 K/mm3 (0.0-0.1) 08/26/18 12:51 Metamyelocytes # 0.0 K/mm3 08/26/18 12:51 Myelocytes # 0.0 K/mm3 08/26/18 12:51 Promyelocytes # 0.0 K/mm3 08/26/18 12:51 Blast Cells # 0.0 K/mm3 08/26/18 12:51 WBC Morphology Not Reportable 08/26/18 12:51 Hypersegmented Neuts Not Reportable 08/26/18 12:51 Hyposegmented Neuts Not Reportable 08/26/18 12:51 Hypogranular Neuts Not Reportable 08/26/18 12:51 Smudge Cells Not Reportable 08/26/18 12:51 Toxic Granulation Not Reportable 08/26/18 12:51 Toxic Vacuolation Not Reportable 08/26/18 12:51 Dohle Bodies Not Reportable 08/26/18 12:51 Pelger-Huet Anomaly Not Reportable 08/26/18 12:51 Tramaine Rods Not Reportable 08/26/18 12:51 Platelet Estimate Consistent w auto 08/26/18 12:51 Clumped Platelets Not Reportable 08/26/18 12:51 Plt Clumps, EDTA Not Reportable 08/26/18 12:51 Large Platelets Not Reportable 08/26/18 12:51 Giant Platelets Not Reportable 08/26/18 12:51 Platelet Satelliting Not Reportable 08/26/18 12:51 Plt Morphology Comment Not Reportable 08/26/18 12:51 RBC Morphology Not Reportable 08/26/18 12:51 Dimorphic RBCs Not Reportable 08/26/18 12:51 Polychromasia Not Reportable 08/26/18 12:51 Hypochromasia Not Reportable 08/26/18 12:51 Poikilocytosis 1+ 08/26/18 12:51 Anisocytosis 1+ 08/26/18 12:51 Microcytosis Not Reportable 08/26/18 12:51 Macrocytosis Not Reportable 08/26/18 12:51 Spherocytes Not Reportable 08/26/18 12:51 Pappenheimer Bodies Not Reportable 08/26/18 12:51 Sickle Cells Not Reportable 08/26/18 12:51 Target Cells 1+ 08/26/18 12:51 Tear Drop Cells Not Reportable 08/26/18 12:51 Ovalocytes Few 08/26/18 12:51 Helmet Cells Not Reportable 08/26/18 12:51 Zhou-[place] Bodies Not Reportable 08/26/18 12:51 [place] Rings Not Reportable 08/26/18 12:51 Hebert Cells Not Reportable 08/26/18 12:51 Bite Cells Not Reportable 08/26/18 12:51 Crenated Cell Not Reportable 08/26/18 12:51 Elliptocytes Not Reportable 08/26/18 12:51 Acanthocytes (Spur) Not Reportable 08/26/18 12:51 Rouleaux Not Reportable 08/26/18 12:51 Hemoglobin C Crystals Not Reportable 08/26/18 12:51 Schistocytes Not Reportable 08/26/18 12:51 Malaria parasites Not Reportable 08/26/18 12:51 Jose Juan Bodies Not Reportable 08/26/18 12:51 Hem Pathologist Commnt No 08/26/18 12:51 Sodium 133 mmol/L (137-145) L 08/27/18 05:59 Potassium 3.7 mmol/L (3.6-5.0) 08/27/18 05:59 Chloride 95.3 mmol/L (98-107) L 08/27/18 05:59 Carbon Dioxide 26 mmol/L (22-30) 08/27/18 05:59 Anion Gap 15 mmol/L 08/27/18 05:59 BUN 32 mg/dL (9-20) H 08/27/18 05:59 Creatinine 5.7 mg/dL (0.8-1.5) H 08/27/18 05:59 Estimated GFR 12 ml/min 08/27/18 05:59 BUN/Creatinine Ratio 6 % 08/27/18 05:59 Glucose 65 mg/dL (75-100) L 08/27/18 05:59 POC Glucose 102 (70-105) 08/27/18 12:16 Lactic Acid 0.60 mmol/L (0.7-2.0) L 08/26/18 15:38 Calcium 9.7 mg/dL (8.4-10.2) 08/27/18 05:59 Total Bilirubin 0.50 mg/dL (0.1-1.2) 08/26/18 12:51 AST 12 units/L (5-40) 08/26/18 12:51 ALT 8 units/L (7-56) 08/26/18 12:51 Alkaline Phosphatase 102 units/L (35-129) 08/26/18 12:51 Total Protein 6.1 g/dL (6.3-8.2) L 08/26/18 12:51 Albumin 2.5 g/dL (3.9-5) L 08/26/18 12:51 Albumin/Globulin Ratio 0.7 % 08/26/18 12:51
[2018-08-27] MEDS ORDERED: APRESOLINE IV PRN (16:06)
[2018-08-27] MEDS: TYLENOL PO PRN (21:49)
[2018-08-27] MEDS: LONITEN PO SCH (21:54)
[2018-08-27] MEDS: APRESOLINE PO SCH (21:56)
[2018-08-27] MEDS: COLACE PO SCH (21:56)
[2018-08-27] MEDS ORDERED: NON-FORMULARY (Risperidone [Risperdal] 0.5 MG) PO SCH (22:00)
[2018-08-27] MEDS: NEURONTIN PO SCH (22:02)
[2018-08-27] MEDS: RisperDAL PO SCH (22:03)
[2018-08-28 05:21] LABS: Hematocrit 30.3 % (35.5-45.6); Hemoglobin 9.5 gm/dl (11.8-15.2); Lymphocytes % (Auto) 27.6 % (13.4-35.0); Mean Corpuscular HGB Conc 31 % (32-34); Mean Corpuscular Volume 83 fl (84-94); Monocytes % (Auto) 14.2 % (0.0-7.3); Platelet Count 113 K/mm3 (140-440); Red Blood Count 3.66 M/mm3 (3.65-5.03); Red Cell Distribution Width 24.3 % (13.2-15.2)
[2018-08-28 05:22] LABS: Basophils % (Auto) 1.3 % (0.0-1.8); Eosinophils # (Auto) 0.2 K/mm3 (0.0-0.4); Eosinophils % (Auto) 5.4 % (0.0-4.3); Lymphocytes # (Auto) 0.8 K/mm3 (1.2-5.4); Monocytes # (Auto) 0.4 K/mm3 (0.0-0.8)
[2018-08-28 05:45] LABS: Calcium 9.2 mg/dL (8.4-10.2)
[2018-08-28] MEDS: FOLVITE PO SCH ×2 (07:32→10:40)
[2018-08-28] MEDS: COLACE PO SCH ×3 (07:33→21:11)
[2018-08-28] MEDS: LONITEN PO SCH ×3 (07:33→21:11)
[2018-08-28] MEDS: SODIUM CHLORIDE FLUSH SYRINGE 10 ML IV SCH ×3 (07:33→21:12)
[2018-08-28] MEDS: IMDUR PO SCH ×2 (07:33→10:43)
[2018-08-28] MEDS: HALFPRIN EC PO SCH ×2 (07:33→10:41)
[2018-08-28] MEDS: RisperDAL PO SCH ×3 (07:33→21:12)
[2018-08-28] MEDS: ZOLOFT PO SCH ×2 (07:33→10:48)
--- NOTE | 2018-08-28 08:54 | Progress Note ---
Assessment and Plan Assessment and plan: --End-stage renal disease ; on hemodialysis Malfunctioning of AV graft , vascular procedure Nephrology evaluated the patient Patient had hemodialysis catheter, received hemodialysis today --AV fistula malfunction; S/P vascular procedure vascular surgery evaluated the patient ,Ultrasound and fluoroscopic guided placement of tunneled hemodialysis catheter via the right internal jugular vein. Left upper extremity fistulogram demonstrating 80% stenosis within the axillary vein. Proximal to this there are numerous crushed and broken stents. --Hypertension; moderate control, continue current antihypertensives When necessary hydralazine --Metabolic encephalopathy ; present on admission Symptoms slightly improved ,CT head ,no acute abnormality, Old findings, neuro checks, Aspiration precautions, fall precautions, --Bradycardia; patient has no symptoms Heart rate ranges in 40s and 50s, hold metoprolol Closely monitor --Legally blind/Rt prosthetic eye; supportive care --DVT prophylaxis ;SCD to BLE while in bed Closely monitor the patient and adjust the management as needed History Interval history: Since seen and examined medical records reviewed Patient feels slightly better no new complaints Alert awake responds appropriately Legally blind Vital signs noted Hospitalist Physical - Constitutional Vitals: Temp Pulse Resp BP Pulse Ox 98.6 F 60 16 127/88 100 08/27/18 11:00 08/27/18 22:00 08/28/18 08:00 08/27/18 21:56 08/28/18 08:12 General appearance: Present: no acute distress, well-nourished, obese - EENT Eyes: Present: PERRL, EOM intact - Neck Neck: Present: supple, normal ROM - Respiratory Respiratory effort: normal Respiratory: bilateral: diminished, negative: rales, rhonchi, wheezing - Cardiovascular Rhythm: regular Heart Sounds: Present: S1 & S2 - Extremities Extremities: no ischemia, No edema - Abdominal General gastrointestinal: soft, non-tender, non-distended, normal bowel sounds - Integumentary Integumentary: Present: clear, warm - Psychiatric Psychiatric: appropriate mood/affect, cooperative - Neurologic Neurologic: CNII-XII intact, moves all extremities Results - Labs CBC & Chem 7: 08/28/18 04:39 08/28/18 04:39 Labs: Laboratory Last Values WBC 2.8 K/mm3 (4.5-11.0) L 08/28/18 04:39 RBC 3.66 M/mm3 (3.65-5.03) 08/28/18 04:39 Hgb 9.5 gm/dl (11.8-15.2) L 08/28/18 04:39 Hct 30.3 % (35.5-45.6) L 08/28/18 04:39 MCV 83 fl (84-94) L 08/28/18 04:39 MCH 26 pg (28-32) L 08/28/18 04:39 MCHC 31 % (32-34) L 08/28/18 04:39 RDW 24.3 % (13.2-15.2) H 08/28/18 04:39 Plt Count 113 K/mm3 (140-440) L 08/28/18 04:39 Lymph % (Auto) 27.6 % (13.4-35.0) 08/28/18 04:39 [place] % (Auto) 14.2 % (0.0-7.3) H 08/28/18 04:39 Eos % (Auto) 5.4 % (0.0-4.3) H 08/28/18 04:39 Baso % (Auto) 1.3 % (0.0-1.8) 08/28/18 04:39 Lymph # 0.8 K/mm3 (1.2-5.4) L 08/28/18 04:39 [place] # 0.4 K/mm3 (0.0-0.8) 08/28/18 04:39 Eos # 0.2 K/mm3 (0.0-0.4) 08/28/18 04:39 Baso # 0.0 K/mm3 (0.0-0.1) 08/28/18 04:39 Add Manual Diff Complete 08/26/18 12:51 Total Counted 100 08/26/18 12:51 Seg Neutrophils % 51.5 % (40.0-70.0) 08/28/18 04:39 Seg Neuts % (Manual) 75.0 % (40.0-70.0) H 08/26/18 12:51 Band Neutrophils % 0 % 08/26/18 12:51 Lymphocytes % (Manual) 4.0 % (13.4-35.0) L 08/26/18 12:51 Reactive Lymphs % (Man) 0 % 08/26/18 12:51 Monocytes % (Manual) 6.0 % (0.0-7.3) 08/26/18 12:51 Eosinophils % (Manual) 15.0 % (0.0-4.3) H 08/26/18 12:51 Basophils % (Manual) 0 % (0.0-1.8) 08/26/18 12:51 Metamyelocytes % 0 % 08/26/18 12:51 Myelocytes % 0 % 08/26/18 12:51 Promyelocytes % 0 % 08/26/18 12:51 Blast Cells % 0 % 08/26/18 12:51 Nucleated RBC % Not Reportable 08/26/18 12:51 Seg Neutrophils # 1.5 K/mm3 (1.8-7.7) L 08/28/18 04:39 Seg Neutrophils # Man 2.4 K/mm3 (1.8-7.7) 08/26/18 12:51 Band Neutrophils # 0.0 K/mm3 08/26/18 12:51 Lymphocytes # (Manual) 0.1 K/mm3 (1.2-5.4) L 08/26/18 12:51 Abs React Lymphs (Man) 0.0 K/mm3 08/26/18 12:51 Monocytes # (Manual) 0.2 K/mm3 (0.0-0.8) 08/26/18 12:51 Eosinophils # (Manual) 0.5 K/mm3 (0.0-0.4) H 08/26/18 12:51 Basophils # (Manual) 0.0 K/mm3 (0.0-0.1) 08/26/18 12:51 Metamyelocytes # 0.0 K/mm3 08/26/18 12:51 Myelocytes # 0.0 K/mm3 08/26/18 12:51 Promyelocytes # 0.0 K/mm3 08/26/18 12:51 Blast Cells # 0.0 K/mm3 08/26/18 12:51 WBC Morphology Not Reportable 08/26/18 12:51 Hypersegmented Neuts Not Reportable 08/26/18 12:51 Hyposegmented Neuts Not Reportable 08/26/18 12:51 Hypogranular Neuts Not Reportable 08/26/18 12:51 Smudge Cells Not Reportable 08/26/18 12:51 Toxic Granulation Not Reportable 08/26/18 12:51 Toxic Vacuolation Not Reportable 08/26/18 12:51 Dohle Bodies Not Reportable 08/26/18 12:51 Pelger-Huet Anomaly Not Reportable 08/26/18 12:51 Tramaine Rods Not Reportable 08/26/18 12:51 Platelet Estimate Consistent w auto 08/26/18 12:51 Clumped Platelets Not Reportable 08/26/18 12:51 Plt Clumps, EDTA Not Reportable 08/26/18 12:51 Large Platelets Not Reportable 08/26/18 12:51 Giant Platelets Not Reportable 08/26/18 12:51 Platelet Satelliting Not Reportable 08/26/18 12:51 Plt Morphology Comment Not Reportable 08/26/18 12:51 RBC Morphology Not Reportable 08/26/18 12:51 Dimorphic RBCs Not Reportable 08/26/18 12:51 Polychromasia Not Reportable 08/26/18 12:51 Hypochromasia Not Reportable 08/26/18 12:51 Poikilocytosis 1+ 08/26/18 12:51 Anisocytosis 1+ 08/26/18 12:51 Microcytosis Not Reportable 08/26/18 12:51 Macrocytosis Not Reportable 08/26/18 12:51 Spherocytes Not Reportable 08/26/18 12:51 Pappenheimer Bodies Not Reportable 08/26/18 12:51 Sickle Cells Not Reportable 08/26/18 12:51 Target Cells 1+ 08/26/18 12:51 Tear Drop Cells Not Reportable 08/26/18 12:51 Ovalocytes Few 08/26/18 12:51 Helmet Cells Not Reportable 08/26/18 12:51 Zhou[place] Bodies Not Reportable 08/26/18 12:51 [place] Rings Not Reportable 08/26/18 12:51 Hebert Cells Not Reportable 08/26/18 12:51 Bite Cells Not Reportable 08/26/18 12:51 Crenated Cell Not Reportable 08/26/18 12:51 Elliptocytes Not Reportable 08/26/18 12:51 Acanthocytes (Spur) Not Reportable 08/26/18 12:51 Rouleaux Not Reportable 08/26/18 12:51 Hemoglobin C Crystals Not Reportable 08/26/18 12:51 Schistocytes Not Reportable 08/26/18 12:51 Malaria parasites Not Reportable 08/26/18 12:51 Jose Juan Bodies Not Reportable 08/26/18 12:51 Hem Pathologist Commnt No 08/26/18 12:51 Sodium 134 mmol/L (137-145) L 08/28/18 04:39 Potassium 3.9 mmol/L (3.6-5.0) 08/28/18 04:39 Chloride 97.3 mmol/L (98-107) L 08/28/18 04:39 Carbon Dioxide 26 mmol/L (22-30) 08/28/18 04:39 Anion Gap 15 mmol/L 08/28/18 04:39 BUN 18 mg/dL (9-20) 08/28/18 04:39 Creatinine 4.0 mg/dL (0.8-1.5) H 08/28/18 04:39 Estimated GFR 18 ml/min 08/28/18 04:39 BUN/Creatinine Ratio 5 % 08/28/18 04:39 Glucose 65 mg/dL (75-100) L 08/28/18 04:39 POC Glucose 102 (70-105) 08/27/18 12:16 Lactic Acid 0.60 mmol/L (0.7-2.0) L 08/26/18 15:38 Calcium 9.2 mg/dL (8.4-10.2) 08/28/18 04:39 Total Bilirubin 0.50 mg/dL (0.1-1.2) 08/26/18 12:51 AST 12 units/L (5-40) 08/26/18 12:51 ALT 8 units/L (7-56) 08/26/18 12:51 Alkaline Phosphatase 102 units/L (35-129) 08/26/18 12:51 Total Protein 6.1 g/dL (6.3-8.2) L 08/26/18 12:51 Albumin 2.5 g/dL (3.9-5) L 08/26/18 12:51 Albumin/Globulin Ratio 0.7 % 08/26/18 12:51
--- NOTE | 2018-08-28 09:08 | Progress Note ---
Assessment and Plan Impression * End-stage renal disease and maintenance hemodialysis * Malfunctioning AVF * Altered mental status * Schizophrenia * Chronic atrial fibrillation * Hypertension * Coronary artery disease * History of CVA Recommendations * Continue dialysis on MWF via permcath (outpatient dialysis days are TTS) * Abx per primary team * No IV, BP or venipuncture in his access arm * Adjust diet and meds for ESRD state * Avoid nephrotoxins * Procrit with dialysis * Binders with meals Subjective Date of service: 08/28/18 Principal diagnosis: malfunctioning dialysis access Interval history: Patient has no complaints Objective - Vital Signs Vital signs: Vital Signs - 12hr 08/27/18 08/27/18 08/27/18 21:56 22:00 23:00 Pulse Rate 71 60 Respiratory 14 Rate Blood Pressure 127/88 O2 Sat by Pulse 98 Oximetry 08/28/18 08/28/18 08/28/18 03:00 08:00 08:12 Pulse Rate Respiratory 14 16 Rate Blood Pressure O2 Sat by Pulse 98 98 100 Oximetry - General Appearance General appearance: well-developed, well-nourished EENT: ATNC Respiratory: Present: Clear to Ascultation Cardiology: regular, S1S2, other (ulceration over WILFRED AVF) Gastrointestinal: normal, no tenderness, no distended Musculoskeletal: other (no edema) Psychiatric: cooperative - Lab 08/28/18 04:39 08/28/18 04:39 Most recent lab results Calcium 9.2 mg/dL (8.4-10.2) 08/28/18 04:39 Medications & Allergies - Medications Allergies/Adverse Reactions: Allergies haloperidol [From Haldol] Adverse Reaction (Verified 03/13/18 12:10) Unknown haloperidol lactate [From Haldol] Adverse Reaction (Verified 03/13/18 12:10) Unknown Home Medications: Home Medications Medication Instructions Recorded Confirmed Last Taken Type Gabapentin [Neurontin] 100 mg PO QHS #60 capsule 10/02/17 08/26/18 01/19/18 19:00 Rx Acetaminophen [Acetaminophen TAB] 1,000 mg PO Q12H PRN 03/13/18 08/26/18 Unknown History Insulin Aspart [NovoLOG Flexpen] 0 units SUB-Q QWEEK 03/13/18 08/26/18 Unknown History risperiDONE [RisperDAL] 1 mg PO QAM 03/13/18 08/26/18 Unknown History Morphine ER [Ms Contin ER] 15 mg PO Q12H #7 tablet 03/15/18 08/26/18 Unknown Rx Aspirin EC [Aspirin Enteric Coated 81 mg PO DAILY 03/18/18 08/26/18 Unknown History TAB] Docusate Sodium [Colace CAP] 100 mg PO BID 03/18/18 08/26/18 Unknown History Folic Acid [Folvite] 1 mg PO DAILY 03/18/18 08/26/18 Unknown History ISOSORBIDE MONOnitrate [Imdur ER] 30 mg PO DAILY 03/18/18 08/26/18 Unknown History Metoprolol [Lopressor TAB] 50 mg PO BID 03/18/18 08/26/18 Unknown History Minoxidil [Loniten] 2.5 mg PO BID 03/18/18 08/26/18 Unknown History Sevelamer Carbonate [Renvela] 800 mg PO TIDWM 03/18/18 08/26/18 Unknown History HYDROcodone/APAP 5-325 [[place] 1 each PO Q12HR PRN #7 tablet 05/22/18 08/26/18 Unknown Rx 5-325 mg TAB] Famotidine [Pepcid] 20 mg PO DAILY #30 tablet 06/09/18 08/26/18 Unknown Rx Sertraline [Zoloft] 100 mg PO QDAY 08/26/18 08/26/18 Unknown History risperiDONE [Risperdal] 0.5 mg PO HS 08/26/18 08/26/18 Unknown History Active Medications: Generic Name Dose Route Start Last Admin Trade Name Freq PRN Reason Stop Dose Admin Acetaminophen 650 mg 08/26/18 13:19 08/27/18 21:49 Tylenol PO 650 mg Q4H PRN Administration Pain MILD(1-3)/Fever >100.5/HILL Albuterol 2.5 mg 08/26/18 13:19 Proventil IH Q4HRT PRN Shortness Of Breath Aspirin 81 mg 08/27/18 11:00 08/28/18 07:33 Halfprin Ec PO Not Given DAILY SANCHEZ Docusate Sodium 100 mg 08/27/18 11:00 08/28/18 07:33 Colace PO Not Given BID SANCHEZ Folic Acid 1 mg 08/27/18 10:00 08/28/18 07:32 Folvite PO Not Given DAILY SANCHEZ Gabapentin 100 mg 08/27/18 22:00 08/27/18 22:02 Neurontin PO 100 mg QHS SANCHEZ Administration Hydralazine HCl 25 mg 08/27/18 22:00 08/27/18 21:56 Apresoline PO 25 mg Q8HR SANCHEZ Administration Hydralazine HCl 10 mg 08/27/18 16:06 Apresoline IV Q4HR PRN Hypertension Sodium Chloride 100 mls @ 999 mls/hr 08/26/18 17:22 Nacl 0.9% IV UMA PRN Hypotension Isosorbide Mononitrate 30 mg 08/27/18 11:00 08/28/18 07:33 Imdur PO Not Given DAILY SANCHEZ Minoxidil 2.5 mg 08/27/18 10:00 08/28/18 07:33 Loniten PO Not Given BID SANCHEZ Ondansetron HCl 4 mg 08/26/18 13:19 Zofran IV Q8H PRN Nausea And Vomiting Risperidone 1 mg 08/27/18 10:00 08/28/18 07:33 Risperdal PO Not Given QAM SANCHEZ Risperidone 0.5 mg 08/27/18 22:00 08/27/18 22:03 Risperdal PO 0.5 mg QHS SANCHEZ Administration Sertraline HCl 100 mg 08/27/18 10:00 08/28/18 07:33 Zoloft PO Not Given QDAY SANCHEZ Sodium Chloride 10 ml 08/26/18 22:00 08/28/18 07:33 Sodium Chloride Flush Syringe 10 Ml IV Not Given BID SANCHEZ Sodium Chloride 10 ml 08/26/18 13:19 08/27/18 21:48 Sodium Chloride Flush Syringe 10 Ml IV 10 ml PRN PRN Administration LINE FLUSH
[2018-08-28] MEDS: APRESOLINE PO SCH ×2 (13:20→21:10)
--- NOTE | 2018-08-28 15:02 | Vascular Lab Report ---
FINAL REPORT EXAM: VL VEIN MAPPING LTD HISTORY: dialysis access TECHNIQUE: Venous mapping. PRIORS: None currently available. FINDINGS: RIGHT: Internal jugular vein diameter: 1.47 cm. Subclavian vein diameter: 0.95 cm. Axillary vein diameter: 0.93 cm. Upper arm cephalic vein proximal, mid, and distal diameters: 0.6, 0.5, and 0.4 cm. Lower arm cephalic vein proximal to distal cephalic diameters: 0.08, 0.10, 0.07, and 0.6 cm. Proximal brachial vein diameter: 0.57-0.35 cm. Mid brachial vein diameter: 0.47-0.35 cm. Distal brachial vein diameter: 0.29-0.30 cm. Upper arm basilic vein proximal, mid, and distal diameters: 0.16, 0.13, and 0.09 cm. Lower arm basilic vein proximal, mid, and distal diameters: 0.09, 0.10, and 0.05 cm. Radial artery diameter and velocity: 50 cm/s and 0.19 cm. Brachial artery velocity: 77 cm/s. LEFT: Internal jugular vein diameter: 1.27 cm. Subclavian vein diameter: 1.36 cm. Axillary vein diameter: Patent stent noted. 0.71 cm. Multiple surgeries related to fistula is and 80 grafts in the left upper arm limited evaluation of th e proximal mid cephalic vein and the proximal basilic vein. Upper arm cephalic vein distal diameter: 0.5 cm. Proximal and mid portions are not visualized. Lower arm cephalic vein diameters: Not visualized. Proximal brachial vein diameter: 0.28-0.30 cm. Mid brachial vein diameter: 0.22-0.25 cm. Distal brachial vein diameter: 0.26-0.24 cm. Upper arm basilic vein mid, and distal diameters: 0.14 and 0.09 cm. Proximal portion not visualized. Lower arm basilic mid vein diameter: 0.06 cm. Proximal and distal portions are not visualized. Radial artery diameter and velocity: 53 cm/s and 0.13 cm. Brachial artery velocity: 83 cm/s. IMPRESSION: Venous mapping.
[2018-08-28] MEDS: NEURONTIN PO SCH (21:11)
[2018-08-29 04:53] LABS: Hematocrit 27.9 % (35.5-45.6); Hemoglobin 8.5 gm/dl (11.8-15.2); Mean Corpuscular HGB Conc 31 % (32-34); Mean Corpuscular Volume 84 fl (84-94); Platelet Count 112 K/mm3 (140-440); Red Blood Count 3.33 M/mm3 (3.65-5.03); Red Cell Distribution Width 24.1 % (13.2-15.2)
[2018-08-29 05:32] LABS: Calcium 9.4 mg/dL (8.4-10.2)
[2018-08-29] MEDS: APRESOLINE PO SCH ×4 (05:41→21:35)
[2018-08-29] MEDS: TYLENOL PO PRN ×2 (05:42→21:36)
--- NOTE | 2018-08-29 09:15 | Progress Note ---
Assessment and Plan Impression * End-stage renal disease and maintenance hemodialysis * Malfunctioning AVF * Altered mental status * Schizophrenia * Chronic atrial fibrillation * Hypertension * Coronary artery disease * History of CVA Recommendations * Patient is s/p HD on Sat; will resume outpatient TTS schedule tomorrow * UF as tolerated * Vascular surgery following * Glycemic control per primary team * No IV, BP or venipuncture in his access arm * Adjust diet and meds for ESRD state * Avoid nephrotoxins * Procrit with dialysis Subjective Date of service: 08/29/18 Principal diagnosis: malfunctioning dialysis access Interval history: Patient hypoglycemic - glucose in 50s - this AM. Objective - Vital Signs Vital signs: Vital Signs - 12hr 08/28/18 08/28/18 08/29/18 21:23 22:00 00:00 Temperature 98.9 F Pulse Rate 77 Pulse Rate [ 78 From Monitor] Respiratory 16 Rate Blood Pressure O2 Sat by Pulse 99 98 Oximetry 08/29/18 08/29/18 08/29/18 04:00 05:41 07:53 Temperature 98.7 F Pulse Rate 73 Pulse Rate [ 75 From Monitor] Respiratory 17 Rate Blood Pressure 143/64 O2 Sat by Pulse 99 99 Oximetry - General Appearance General appearance: well-developed, well-nourished EENT: ATNC Respiratory: Present: Clear to Ascultation Cardiology: regular, S1S2 Gastrointestinal: normal, no tenderness, no distended Integumentary: warm and dry Musculoskeletal: other (no edema) Psychiatric: cooperative - Lab 08/29/18 04:25 08/29/18 04:25 Most recent lab results Calcium 9.4 mg/dL (8.4-10.2) 08/29/18 04:25 Medications & Allergies - Medications Allergies/Adverse Reactions: Allergies haloperidol [From Haldol] Adverse Reaction (Verified 03/13/18 12:10) Unknown haloperidol lactate [From Haldol] Adverse Reaction (Verified 03/13/18 12:10) Unknown Home Medications: Home Medications Medication Instructions Recorded Confirmed Last Taken Type Gabapentin [Neurontin] 100 mg PO QHS #60 capsule 10/02/17 08/26/18 01/19/18 19:00 Rx Acetaminophen [Acetaminophen TAB] 1,000 mg PO Q12H PRN 03/13/18 08/26/18 Unknown History Insulin Aspart [NovoLOG Flexpen] 0 units SUB-Q QWEEK 03/13/18 08/26/18 Unknown History risperiDONE [RisperDAL] 1 mg PO QAM 03/13/18 08/26/18 Unknown History Morphine ER [Ms Contin ER] 15 mg PO Q12H #7 tablet 03/15/18 08/26/18 Unknown Rx Aspirin EC [Aspirin Enteric Coated 81 mg PO DAILY 03/18/18 08/26/18 Unknown History TAB] Docusate Sodium [Colace CAP] 100 mg PO BID 03/18/18 08/26/18 Unknown History Folic Acid [Folvite] 1 mg PO DAILY 03/18/18 08/26/18 Unknown History ISOSORBIDE MONOnitrate [Imdur ER] 30 mg PO DAILY 03/18/18 08/26/18 Unknown History Metoprolol [Lopressor TAB] 50 mg PO BID 03/18/18 08/26/18 Unknown History Minoxidil [Loniten] 2.5 mg PO BID 03/18/18 08/26/18 Unknown History Sevelamer Carbonate [Renvela] 800 mg PO TIDWM 03/18/18 08/26/18 Unknown History HYDROcodone/APAP 5-325 [[place] 1 each PO Q12HR PRN #7 tablet 05/22/18 08/26/18 Unknown Rx 5-325 mg TAB] Famotidine [Pepcid] 20 mg PO DAILY #30 tablet 06/09/18 08/26/18 Unknown Rx Sertraline [Zoloft] 100 mg PO QDAY 08/26/18 08/26/18 Unknown History risperiDONE [Risperdal] 0.5 mg PO HS 08/26/18 08/26/18 Unknown History Active Medications: Generic Name Dose Route Start Last Admin Trade Name Freq PRN Reason Stop Dose Admin Acetaminophen 650 mg 08/26/18 13:19 08/29/18 05:42 Tylenol PO 650 mg Q4H PRN Administration Pain MILD(1-3)/Fever >100.5/HILL Albuterol 2.5 mg 08/26/18 13:19 Proventil IH Q4HRT PRN Shortness Of Breath Aspirin 81 mg 08/27/18 11:00 08/28/18 10:41 Halfprin Ec PO 81 mg DAILY SANCHEZ Administration Docusate Sodium 100 mg 08/27/18 11:00 08/28/18 21:11 Colace PO 100 mg BID SANCHEZ Administration Folic Acid 1 mg 08/27/18 10:00 08/28/18 10:40 Folvite PO 1 mg DAILY SANCHEZ Administration Gabapentin 100 mg 08/27/18 22:00 08/28/18 21:11 Neurontin PO 100 mg QHS SANCHEZ Administration Hydralazine HCl 25 mg 08/27/18 22:00 08/29/18 05:41 Apresoline PO 25 mg Q8HR SANCHEZ Administration Hydralazine HCl 10 mg 08/27/18 16:06 Apresoline IV Q4HR PRN Hypertension Sodium Chloride 100 mls @ 999 mls/hr 08/26/18 17:22 Nacl 0.9% IV UMA PRN Hypotension Isosorbide Mononitrate 30 mg 08/27/18 11:00 08/28/18 10:43 Imdur PO 30 mg DAILY SANCHEZ Administration Minoxidil 2.5 mg 08/27/18 10:00 08/28/18 21:11 Loniten PO 2.5 mg BID SANCHEZ Administration Ondansetron HCl 4 mg 08/26/18 13:19 Zofran IV Q8H PRN Nausea And Vomiting Risperidone 1 mg 08/27/18 10:00 08/28/18 10:50 Risperdal PO 1 mg QAM SANCHEZ Administration Risperidone 0.5 mg 08/27/18 22:00 08/28/18 21:12 Risperdal PO 0.5 mg QHS SANCHEZ Administration Sertraline HCl 100 mg 08/27/18 10:00 08/28/18 10:48 Zoloft PO 100 mg QDAY SANCHEZ Administration Sodium Chloride 10 ml 08/26/18 22:00 08/28/18 21:12 Sodium Chloride Flush Syringe 10 Ml IV 10 ml BID SANCHEZ Administration Sodium Chloride 10 ml 08/26/18 13:19 08/27/18 21:48 Sodium Chloride Flush Syringe 10 Ml IV 10 ml PRN PRN Administration LINE FLUSH
[2018-08-29] MEDS: COLACE PO SCH ×2 (09:21→21:35)
[2018-08-29] MEDS: RisperDAL PO SCH ×2 (09:21→21:35)
[2018-08-29] MEDS: HALFPRIN EC PO SCH (09:21)
[2018-08-29] MEDS: ZOLOFT PO SCH (09:22)
[2018-08-29] MEDS: FOLVITE PO SCH (09:22)
[2018-08-29] MEDS: IMDUR PO SCH (09:26)
[2018-08-29] MEDS ORDERED: NACL 0.9% 100 ML IV PRN (09:30)
--- NOTE | 2018-08-29 09:36 | Progress Note ---
Assessment and Plan Assessment and plan: --End-stage renal disease ; on hemodialysis Patient had hemodialysis catheter, HD per schedule Nephrology following --AV fistula malfunction; S/P vascular procedure Vascular following --Hypertension;well controlled, continue current antihypertensives When necessary hydralazine --Metabolic encephalopathy ; present on admission Symptoms slightly improved ,CT head ,no acute abnormality, Old findings, neuro checks, Aspiration precautions, fall precautions, --Bradycardia; resolved ,off beta blockers --Legally blind/Rt prosthetic eye; supportive care --DVT prophylaxis ;SCD to BLE while in bed Closely monitor the patient and adjust the management as needed Consults and recommendations noted and appreciated Possible discharge in 1-2 days if stable Patient is stable to be transferred out of IMCU to medical floor History Interval history: Patient seen and examined medical records reviewed No new events reported by the nursing staff Receiving hemodialysis per schedule Patient is not in acute distress Vital signs reviewed Patient is legally blind Hospitalist Physical - Constitutional Vitals: Temp Pulse Resp BP Pulse Ox 98.7 F 67 17 106/70 99 08/29/18 04:00 08/29/18 09:26 08/29/18 04:00 08/29/18 09:26 08/29/18 07:53 General appearance: Present: no acute distress, well-nourished, obese - EENT Eyes: Present: PERRL, EOM intact - Neck Neck: Present: supple, normal ROM - Respiratory Respiratory effort: normal Respiratory: bilateral: diminished, negative: rales, rhonchi, wheezing - Cardiovascular Rhythm: regular Heart Sounds: Present: S1 & S2 - Extremities Extremities: no ischemia, No edema - Abdominal General gastrointestinal: soft, non-tender, non-distended, normal bowel sounds - Integumentary Integumentary: Present: clear, warm - Psychiatric Psychiatric: appropriate mood/affect - Neurologic Neurologic: moves all extremities Results - Labs CBC & Chem 7: 08/29/18 04:25 08/29/18 04:25 Labs: Laboratory Last Values WBC 3.6 K/mm3 (4.5-11.0) L 08/29/18 04:25 RBC 3.33 M/mm3 (3.65-5.03) L 08/29/18 04:25 Hgb 8.5 gm/dl (11.8-15.2) L 08/29/18 04:25 Hct 27.9 % (35.5-45.6) L 08/29/18 04:25 MCV 84 fl (84-94) 08/29/18 04:25 MCH 26 pg (28-32) L 08/29/18 04:25 MCHC 31 % (32-34) L 08/29/18 04:25 RDW 24.1 % (13.2-15.2) H 08/29/18 04:25 Plt Count 112 K/mm3 (140-440) L 08/29/18 04:25 Lymph % (Auto) Nail Cutter 08/29/18 04:25 [place] % (Auto) Nail Cutter 08/29/18 04:25 Eos % (Auto) Nail Cutter 08/29/18 04:25 Baso % (Auto) Nail Cutter 08/29/18 04:25 Lymph # Nail Cutter 08/29/18 04:25 [place] # Nail Cutter 08/29/18 04:25 Eos # Nail Cutter 08/29/18 04:25 Baso # Nail Cutter 08/29/18 04:25 Add Manual Diff Complete 08/26/18 12:51 Total Counted 100 08/26/18 12:51 Seg Neutrophils % Nail Cutter 08/29/18 04:25 Seg Neuts % (Manual) 75.0 % (40.0-70.0) H 08/26/18 12:51 Band Neutrophils % 0 % 08/26/18 12:51 Lymphocytes % (Manual) 4.0 % (13.4-35.0) L 08/26/18 12:51 Reactive Lymphs % (Man) 0 % 08/26/18 12:51 Monocytes % (Manual) 6.0 % (0.0-7.3) 08/26/18 12:51 Eosinophils % (Manual) 15.0 % (0.0-4.3) H 08/26/18 12:51 Basophils % (Manual) 0 % (0.0-1.8) 08/26/18 12:51 Metamyelocytes % 0 % 08/26/18 12:51 Myelocytes % 0 % 08/26/18 12:51 Promyelocytes % 0 % 08/26/18 12:51 Blast Cells % 0 % 08/26/18 12:51 Nucleated RBC % Not Reportable 08/26/18 12:51 Seg Neutrophils # Nail Cutter 08/29/18 04:25 Seg Neutrophils # Man 2.4 K/mm3 (1.8-7.7) 08/26/18 12:51 Band Neutrophils # 0.0 K/mm3 08/26/18 12:51 Lymphocytes # (Manual) 0.1 K/mm3 (1.2-5.4) L 08/26/18 12:51 Abs React Lymphs (Man) 0.0 K/mm3 08/26/18 12:51 Monocytes # (Manual) 0.2 K/mm3 (0.0-0.8) 08/26/18 12:51 Eosinophils # (Manual) 0.5 K/mm3 (0.0-0.4) H 08/26/18 12:51 Basophils # (Manual) 0.0 K/mm3 (0.0-0.1) 08/26/18 12:51 Metamyelocytes # 0.0 K/mm3 08/26/18 12:51 Myelocytes # 0.0 K/mm3 08/26/18 12:51 Promyelocytes # 0.0 K/mm3 08/26/18 12:51 Blast Cells # 0.0 K/mm3 08/26/18 12:51 WBC Morphology Not Reportable 08/26/18 12:51 Hypersegmented Neuts Not Reportable 08/26/18 12:51 Hyposegmented Neuts Not Reportable 08/26/18 12:51 Hypogranular Neuts Not Reportable 08/26/18 12:51 Smudge Cells Not Reportable 08/26/18 12:51 Toxic Granulation Not Reportable 08/26/18 12:51 Toxic Vacuolation Not Reportable 08/26/18 12:51 Dohle Bodies Not Reportable 08/26/18 12:51 Pelger-Huet Anomaly Not Reportable 08/26/18 12:51 Tramaine Rods Not Reportable 08/26/18 12:51 Platelet Estimate Consistent w auto 08/26/18 12:51 Clumped Platelets Not Reportable 08/26/18 12:51 Plt Clumps, EDTA Not Reportable 08/26/18 12:51 Large Platelets Not Reportable 08/26/18 12:51 Giant Platelets Not Reportable 08/26/18 12:51 Platelet Satelliting Not Reportable 08/26/18 12:51 Plt Morphology Comment Not Reportable 08/26/18 12:51 RBC Morphology Not Reportable 08/26/18 12:51 Dimorphic RBCs Not Reportable 08/26/18 12:51 Polychromasia Not Reportable 08/26/18 12:51 Hypochromasia Not Reportable 08/26/18 12:51 Poikilocytosis 1+ 08/26/18 12:51 Anisocytosis 1+ 08/26/18 12:51 Microcytosis Not Reportable 08/26/18 12:51 Macrocytosis Not Reportable 08/26/18 12:51 Spherocytes Not Reportable 08/26/18 12:51 Pappenheimer Bodies Not Reportable 08/26/18 12:51 Sickle Cells Not Reportable 08/26/18 12:51 Target Cells 1+ 08/26/18 12:51 Tear Drop Cells Not Reportable 08/26/18 12:51 Ovalocytes Few 08/26/18 12:51 Helmet Cells Not Reportable 08/26/18 12:51 [place] Bodies Not Reportable 08/26/18 12:51 [place] Rings Not Reportable 08/26/18 12:51 [place] Cells Not Reportable 08/26/18 12:51 Bite Cells Not Reportable 08/26/18 12:51 Crenated Cell Not Reportable 08/26/18 12:51 Elliptocytes Not Reportable 08/26/18 12:51 Acanthocytes (Spur) Not Reportable 08/26/18 12:51 Rouleaux Not Reportable 08/26/18 12:51 Hemoglobin C Crystals Not Reportable 08/26/18 12:51 Schistocytes Not Reportable 08/26/18 12:51 Malaria parasites Not Reportable 08/26/18 12:51 Jose Juan Bodies Not Reportable 08/26/18 12:51 Hem Pathologist Commnt No 08/26/18 12:51 Sodium 136 mmol/L (137-145) L 08/29/18 04:25 Potassium 3.6 mmol/L (3.6-5.0) 08/29/18 04:25 Chloride 97.1 mmol/L (98-107) L 08/29/18 04:25 Carbon Dioxide 27 mmol/L (22-30) 08/29/18 04:25 Anion Gap 16 mmol/L 08/29/18 04:25 BUN 24 mg/dL (9-20) H 08/29/18 04:25 Creatinine 5.1 mg/dL (0.8-1.5) H 08/29/18 04:25 Estimated GFR 14 ml/min 08/29/18 04:25 BUN/Creatinine Ratio 5 % 08/29/18 04:25 Glucose 73 mg/dL (75-100) L 08/29/18 04:25 POC Glucose 57 (70-105) L 08/29/18 08:58 Lactic Acid 0.60 mmol/L (0.7-2.0) L 08/26/18 15:38 Calcium 9.4 mg/dL (8.4-10.2) 08/29/18 04:25 Total Bilirubin 0.50 mg/dL (0.1-1.2) 08/26/18 12:51 AST 12 units/L (5-40) 08/26/18 12:51 ALT 8 units/L (7-56) 08/26/18 12:51 Alkaline Phosphatase 102 units/L (35-129) 08/26/18 12:51 Total Protein 6.1 g/dL (6.3-8.2) L 08/26/18 12:51 Albumin 2.5 g/dL (3.9-5) L 08/26/18 12:51 Albumin/Globulin Ratio 0.7 % 08/26/18 12:51
--- NOTE | 2018-08-29 11:26 | Progress Note ---
Assessment and Plan failed left AVG with crushed stents HD via permcath vein mapping done. right cephalic vein appears good size, but IV is present right antecubital. Reasonable to repeat vein mapping as an outpatient without IV access, possible brachiocephalic AVF vs AVG. Subjective Date of service: 08/29/18 Principal diagnosis: malfunctioning dialysis access Interval history: Patient is comfortably sleeping Objective - Exam Narrative Exam: left arm AVG with no gross signs of infection - Constitutional Vitals: Vital Signs - 12hr 08/29/18 08/29/18 08/29/18 00:00 04:00 05:41 Temperature 98.9 F 98.7 F Pulse Rate 73 Pulse Rate [ 78 75 From Monitor] Respiratory 16 17 Rate Blood Pressure 143/64 O2 Sat by Pulse 98 99 Oximetry 08/29/18 08/29/18 07:53 09:26 Temperature Pulse Rate 67 Pulse Rate [ From Monitor] Respiratory Rate Blood Pressure 106/70 O2 Sat by Pulse 99 Oximetry - Labs CBC & Chem 7: 08/29/18 04:25 08/29/18 04:25 Labs: Abnormal lab results 08/29/18 08/29/18 08/29/18 Range/Units 04:25 04:25 08:58 WBC 3.6 L (4.5-11.0) K/mm3 RBC 3.33 L (3.65-5.03) M/mm3 Hgb 8.5 L (11.8-15.2) gm/dl Hct 27.9 L (35.5-45.6) % MCH 26 L (28-32) pg MCHC 31 L (32-34) % RDW 24.1 H (13.2-15.2) % Plt Count 112 L (140-440) K/mm3 Sodium 136 L (137-145) mmol/L Chloride 97.1 L (98-107) mmol/L BUN 24 H (9-20) mg/dL Creatinine 5.1 H (0.8-1.5) mg/dL Glucose 73 L (75-100) mg/dL POC Glucose 57 L (70-105) Medications & Allergies - Medications Allergies/Adverse Reactions: Allergies haloperidol [From Haldol] Adverse Reaction (Verified 03/13/18 12:10) Unknown haloperidol lactate [From Haldol] Adverse Reaction (Verified 03/13/18 12:10) Unknown Home Medications: Home Medications Medication Instructions Recorded Confirmed Last Taken Type Gabapentin [Neurontin] 100 mg PO QHS #60 capsule 10/02/17 08/26/18 01/19/18 19:00 Rx Acetaminophen [Acetaminophen TAB] 1,000 mg PO Q12H PRN 03/13/18 08/26/18 Unknown History Insulin Aspart [NovoLOG Flexpen] 0 units SUB-Q QWEEK 03/13/18 08/26/18 Unknown History risperiDONE [RisperDAL] 1 mg PO QAM 03/13/18 08/26/18 Unknown History Morphine ER [Ms Contin ER] 15 mg PO Q12H #7 tablet 03/15/18 08/26/18 Unknown Rx Aspirin EC [Aspirin Enteric Coated 81 mg PO DAILY 03/18/18 08/26/18 Unknown History TAB] Docusate Sodium [Colace CAP] 100 mg PO BID 03/18/18 08/26/18 Unknown History Folic Acid [Folvite] 1 mg PO DAILY 03/18/18 08/26/18 Unknown History ISOSORBIDE MONOnitrate [Imdur ER] 30 mg PO DAILY 03/18/18 08/26/18 Unknown History Metoprolol [Lopressor TAB] 50 mg PO BID 03/18/18 08/26/18 Unknown History Minoxidil [Loniten] 2.5 mg PO BID 03/18/18 08/26/18 Unknown History Sevelamer Carbonate [Renvela] 800 mg PO TIDWM 03/18/18 08/26/18 Unknown History HYDROcodone/APAP 5-325 [[place] 1 each PO Q12HR PRN #7 tablet 05/22/18 08/26/18 Unknown Rx 5-325 mg TAB] Famotidine [Pepcid] 20 mg PO DAILY #30 tablet 06/09/18 08/26/18 Unknown Rx Sertraline [Zoloft] 100 mg PO QDAY 08/26/18 08/26/18 Unknown History risperiDONE [Risperdal] 0.5 mg PO HS 08/26/18 08/26/18 Unknown History Active Medications: Generic Name Dose Route Start Last Admin Trade Name Freq PRN Reason Stop Dose Admin Acetaminophen 650 mg 08/26/18 13:19 08/29/18 05:42 Tylenol PO 650 mg Q4H PRN Administration Pain MILD(1-3)/Fever >100.5/HILL Albuterol 2.5 mg 08/26/18 13:19 Proventil IH Q4HRT PRN Shortness Of Breath Aspirin 81 mg 08/27/18 11:00 08/29/18 09:21 Halfprin Ec PO 81 mg DAILY SANCHEZ Administration Docusate Sodium 100 mg 08/27/18 11:00 08/29/18 09:21 Colace PO 100 mg BID SANCHEZ Administration Folic Acid 1 mg 08/27/18 10:00 08/29/18 09:22 Folvite PO 1 mg DAILY SANCHEZ Administration Gabapentin 100 mg 08/27/18 22:00 08/28/18 21:11 Neurontin PO 100 mg QHS SANCHEZ Administration Hydralazine HCl 25 mg 08/27/18 22:00 08/29/18 05:41 Apresoline PO 25 mg Q8HR SANCHEZ Administration Hydralazine HCl 10 mg 08/27/18 16:06 Apresoline IV Q4HR PRN Hypertension Sodium Chloride 100 mls @ 999 mls/hr 08/29/18 09:30 Nacl 0.9% IV UMA PRN Hypotension Isosorbide Mononitrate 30 mg 08/27/18 11:00 08/29/18 09:26 Imdur PO 30 mg DAILY SANCHEZ Administration Minoxidil 2.5 mg 08/27/18 10:00 08/28/18 21:11 Loniten PO 2.5 mg BID SANCHEZ Administration Ondansetron HCl 4 mg 08/26/18 13:19 Zofran IV Q8H PRN Nausea And Vomiting Risperidone 1 mg 08/27/18 10:00 08/29/18 09:21 Risperdal PO 1 mg QAM SANCHEZ Administration Risperidone 0.5 mg 08/27/18 22:00 08/28/18 21:12 Risperdal PO 0.5 mg QHS SANCHEZ Administration Sertraline HCl 100 mg 08/27/18 10:00 08/29/18 09:22 Zoloft PO 100 mg QDAY SANCHEZ Administration Sodium Chloride 10 ml 08/26/18 22:00 08/28/18 21:12 Sodium Chloride Flush Syringe 10 Ml IV 10 ml BID SANCHEZ Administration Sodium Chloride 10 ml 08/26/18 13:19 08/27/18 21:48 Sodium Chloride Flush Syringe 10 Ml IV 10 ml PRN PRN Administration LINE FLUSH
[2018-08-29] MEDS: LONITEN PO SCH ×2 (11:49→21:35)
[2018-08-29] MEDS: SODIUM CHLORIDE FLUSH SYRINGE 10 ML IV SCH ×2 (11:52→21:37)
[2018-08-29] MEDS ORDERED: D50W (25GM) Syringe IV PRN (18:35)
[2018-08-29] MEDS: NEURONTIN PO SCH (21:36)
[2018-08-30] MEDS: APRESOLINE PO SCH ×3 (05:36→21:58)
--- NOTE | 2018-08-30 09:53 | Progress Note ---
Subjective Principal diagnosis: malfunctioning dialysis access Interval history: Patient was seen today for follow-up on multiple renal related issues Events of this hospitalization noted Patient is resting comfortably in bed Patient denies having any chest pain pressure or shortness of breath Vitals labs intake output medications were reviewed Social history: Reviewed Allergies: Reviewed Family history: Reviewed Physical examination HEENT: Oral mucosa moist no pallor or icterus Neck: Supple no JVD Chest: Clear to auscultation anteriorly CVS: Regular rate and rhythm S1 and S2 heard Abdomen: Soft nontender no suprapubic masses no organomegaly appreciable Extremity: Dry skin less than 1+ peripheral edema Musculoskeletal: No joint effusion noted in knees and ankle Neurological: Alert awake Dermatology: No petechial rashes Psychiatry: No evidence of any agitation and aggression noted Assessment and plan As renal disease currently on maintenance hemanalysis patient is currently on Saturday and Saturday schedule Has had issues with malfunctioning fistula currently being followed by vascular surgery Anemia chronic in end-stage renal disease, continue to monitor erythropoietin periodically, Bone mineral disorder and secondary hyperparathyroidism check phosphorus and PTH level Chronically noncompliant patient has multiple health issues including end-stage renal disease, coronary artery disease, chronic atrial fibrillation on top of which she has schizophrenia and issues with noncompliance which makes his prognosis guarded to poor Continue with supportive care for now From renal perspective his hemoglobin is 9.7 platelet count is 117,000, potassium 3.9 BUN 23 creatinine 4.7 and calcium of 9.3 We'll continue to follow and make recommendation from renal standpoint Objective - Vital Signs Vital signs: Vital Signs - 12hr 08/29/18 08/29/18 08/30/18 22:36 23:57 00:46 Temperature 98.8 F Pulse Rate 81 81 Respiratory 17 18 Rate Blood Pressure 163/74 163/74 O2 Sat by Pulse 98 Oximetry 08/30/18 08/30/18 05:25 05:36 Temperature 98.8 F Pulse Rate 82 84 Respiratory 18 Rate Blood Pressure 141/68 141/68 O2 Sat by Pulse 100 Oximetry - Lab 08/30/18 17:07 08/31/18 04:41 Most recent lab results Calcium 9.4 mg/dL (8.4-10.2) 08/29/18 04:25 Medications & Allergies - Medications Allergies/Adverse Reactions: Allergies haloperidol [From Haldol] Adverse Reaction (Verified 03/13/18 12:10) Unknown haloperidol lactate [From Haldol] Adverse Reaction (Verified 03/13/18 12:10) Unknown Home Medications: Home Medications Medication Instructions Recorded Confirmed Last Taken Type Gabapentin [Neurontin] 100 mg PO QHS #60 capsule 10/02/17 08/26/18 01/19/18 19:00 Rx Acetaminophen [Acetaminophen TAB] 1,000 mg PO Q12H PRN 03/13/18 08/26/18 Unknown History Insulin Aspart [NovoLOG Flexpen] 0 units SUB-Q QWEEK 03/13/18 08/26/18 Unknown History risperiDONE [RisperDAL] 1 mg PO QAM 03/13/18 08/26/18 Unknown History Morphine ER [Ms Contin ER] 15 mg PO Q12H #7 tablet 03/15/18 08/26/18 Unknown Rx Aspirin EC [Aspirin Enteric Coated 81 mg PO DAILY 03/18/18 08/26/18 Unknown History TAB] Docusate Sodium [Colace CAP] 100 mg PO BID 03/18/18 08/26/18 Unknown History Folic Acid [Folvite] 1 mg PO DAILY 03/18/18 08/26/18 Unknown History ISOSORBIDE MONOnitrate [Imdur ER] 30 mg PO DAILY 03/18/18 08/26/18 Unknown History Metoprolol [Lopressor TAB] 50 mg PO BID 03/18/18 08/26/18 Unknown History Minoxidil [Loniten] 2.5 mg PO BID 03/18/18 08/26/18 Unknown History Sevelamer Carbonate [Renvela] 800 mg PO TIDWM 03/18/18 08/26/18 Unknown History HYDROcodone/APAP 5-325 [[place] 1 each PO Q12HR PRN #7 tablet 05/22/18 08/26/18 Unknown Rx 5-325 mg TAB] Famotidine [Pepcid] 20 mg PO DAILY #30 tablet 06/09/18 08/26/18 Unknown Rx Sertraline [Zoloft] 100 mg PO QDAY 08/26/18 08/26/18 Unknown History risperiDONE [Risperdal] 0.5 mg PO HS 08/26/18 08/26/18 Unknown History Active Medications: Generic Name Dose Route Start Last Admin Trade Name Freq PRN Reason Stop Dose Admin Acetaminophen 650 mg 08/26/18 13:19 08/29/18 21:36 Tylenol PO 650 mg Q4H PRN Administration Pain MILD(1-3)/Fever >100.5/HILL Albuterol 2.5 mg 08/26/18 13:19 Proventil IH Q4HRT PRN Shortness Of Breath Aspirin 81 mg 08/27/18 11:00 08/29/18 09:21 Halfprin Ec PO 81 mg DAILY SANCHEZ Administration Dextrose 50 ml 08/29/18 18:35 D50w (25gm) Syringe IV PRN PRN Hypoglycemia Docusate Sodium 100 mg 08/27/18 11:00 08/29/18 21:35 Colace PO 100 mg BID SANCHEZ Administration Folic Acid 1 mg 08/27/18 10:00 08/29/18 09:22 Folvite PO 1 mg DAILY SANCHEZ Administration Gabapentin 100 mg 08/27/18 22:00 08/29/18 21:36 Neurontin PO 100 mg QHS SANCHEZ Administration Hydralazine HCl 25 mg 08/27/18 22:00 08/30/18 05:36 Apresoline PO 25 mg Q8HR SANCHEZ Administration Hydralazine HCl 10 mg 08/27/18 16:06 08/30/18 00:46 Apresoline IV 10 mg Q4HR PRN Administration Hypertension Sodium Chloride 100 mls @ 999 mls/hr 08/29/18 09:30 Nacl 0.9% IV UMA PRN Hypotension Isosorbide Mononitrate 30 mg 08/27/18 11:00 08/29/18 09:26 Imdur PO 30 mg DAILY SANCHEZ Administration Minoxidil 2.5 mg 08/27/18 10:00 08/29/18 21:35 Loniten PO 2.5 mg BID SANCHEZ Administration Ondansetron HCl 4 mg 08/26/18 13:19 Zofran IV Q8H PRN Nausea And Vomiting Risperidone 1 mg 08/27/18 10:00 08/29/18 09:21 Risperdal PO 1 mg QAM SANCHEZ Administration Risperidone 0.5 mg 08/27/18 22:00 08/29/18 21:35 Risperdal PO 0.5 mg QHS SANCHEZ Administration Sertraline HCl 100 mg 08/27/18 10:00 08/29/18 09:22 Zoloft PO 100 mg QDAY SANCHEZ Administration Sodium Chloride 10 ml 08/26/18 22:00 08/29/18 21:37 Sodium Chloride Flush Syringe 10 Ml IV 10 ml BID SANCHEZ Administration Sodium Chloride 10 ml 08/26/18 13:19 08/27/18 21:48 Sodium Chloride Flush Syringe 10 Ml IV 10 ml PRN PRN Administration LINE FLUSH
--- NOTE | 2018-08-30 12:00 | Progress Note ---
Assessment and Plan Assessment and plan: --End-stage renal disease ; on hemodialysis HD per schedule, Nephrology following --AV fistula malfunction; S/P vascular procedure Vascular following --Hypertension;well controlled, continue current antihypertensives When necessary hydralazine --Metabolic encephalopathy ; present on admission Symptoms slightly improved ,CT head ,no acute abnormality, Aspiration precautions, fall precautions, --Bradycardia; resolved ,off beta blockers --Legally blind/Rt prosthetic eye; supportive care --DVT prophylaxis ;SCD to BLE while in bed Closely monitor the patient and adjust the management as needed Consults and recommendations noted and appreciated Possible discharge in 1-2 days if stable History Interval history: Patient seen and examined medical records reviewed Patient feels better no new complaints Schedule for hemodialysis Vital signs reviewed Hospitalist Physical - Constitutional Vitals: Temp Pulse Resp BP Pulse Ox 98.8 F 84 18 141/68 96 08/30/18 05:25 08/30/18 05:36 08/30/18 05:25 08/30/18 05:36 08/30/18 10:00 General appearance: Present: no acute distress, well-nourished, obese - EENT Eyes: Present: PERRL, EOM intact - Neck Neck: Present: supple, normal ROM - Respiratory Respiratory effort: normal Respiratory: bilateral: diminished, negative: rales, rhonchi, wheezing - Cardiovascular Rhythm: regular Heart Sounds: Present: S1 & S2 - Extremities Extremities: no ischemia, No edema Extremity abnormal: edema - Abdominal General gastrointestinal: soft, non-tender, non-distended, normal bowel sounds - Integumentary Integumentary: Present: clear, warm - Psychiatric Psychiatric: appropriate mood/affect - Neurologic Neurologic: CNII-XII intact, moves all extremities Results - Labs CBC & Chem 7: 08/29/18 04:25 08/29/18 04:25 Labs: Laboratory Last Values WBC 3.6 K/mm3 (4.5-11.0) L 08/29/18 04:25 RBC 3.33 M/mm3 (3.65-5.03) L 08/29/18 04:25 Hgb 8.5 gm/dl (11.8-15.2) L 08/29/18 04:25 Hct 27.9 % (35.5-45.6) L 08/29/18 04:25 MCV 84 fl (84-94) 08/29/18 04:25 MCH 26 pg (28-32) L 08/29/18 04:25 MCHC 31 % (32-34) L 08/29/18 04:25 RDW 24.1 % (13.2-15.2) H 08/29/18 04:25 Plt Count 112 K/mm3 (140-440) L 08/29/18 04:25 Lymph % (Auto) Guest Relations Associate 08/29/18 04:25 [place] % (Auto) Guest Relations Associate 08/29/18 04:25 Eos % (Auto) Guest Relations Associate 08/29/18 04:25 Baso % (Auto) Guest Relations Associate 08/29/18 04:25 Lymph # Guest Relations Associate 08/29/18 04:25 [place] # Guest Relations Associate 08/29/18 04:25 Eos # Guest Relations Associate 08/29/18 04:25 Baso # Guest Relations Associate 08/29/18 04:25 Add Manual Diff Complete 08/26/18 12:51 Total Counted 100 08/26/18 12:51 Seg Neutrophils % Guest Relations Associate 08/29/18 04:25 Seg Neuts % (Manual) 75.0 % (40.0-70.0) H 08/26/18 12:51 Band Neutrophils % 0 % 08/26/18 12:51 Lymphocytes % (Manual) 4.0 % (13.4-35.0) L 08/26/18 12:51 Reactive Lymphs % (Man) 0 % 08/26/18 12:51 Monocytes % (Manual) 6.0 % (0.0-7.3) 08/26/18 12:51 Eosinophils % (Manual) 15.0 % (0.0-4.3) H 08/26/18 12:51 Basophils % (Manual) 0 % (0.0-1.8) 08/26/18 12:51 Metamyelocytes % 0 % 08/26/18 12:51 Myelocytes % 0 % 08/26/18 12:51 Promyelocytes % 0 % 08/26/18 12:51 Blast Cells % 0 % 08/26/18 12:51 Nucleated RBC % Not Reportable 08/26/18 12:51 Seg Neutrophils # Guest Relations Associate 08/29/18 04:25 Seg Neutrophils # Man 2.4 K/mm3 (1.8-7.7) 08/26/18 12:51 Band Neutrophils # 0.0 K/mm3 08/26/18 12:51 Lymphocytes # (Manual) 0.1 K/mm3 (1.2-5.4) L 08/26/18 12:51 Abs React Lymphs (Man) 0.0 K/mm3 08/26/18 12:51 Monocytes # (Manual) 0.2 K/mm3 (0.0-0.8) 08/26/18 12:51 Eosinophils # (Manual) 0.5 K/mm3 (0.0-0.4) H 08/26/18 12:51 Basophils # (Manual) 0.0 K/mm3 (0.0-0.1) 08/26/18 12:51 Metamyelocytes # 0.0 K/mm3 08/26/18 12:51 Myelocytes # 0.0 K/mm3 08/26/18 12:51 Promyelocytes # 0.0 K/mm3 08/26/18 12:51 Blast Cells # 0.0 K/mm3 08/26/18 12:51 WBC Morphology Not Reportable 08/26/18 12:51 Hypersegmented Neuts Not Reportable 08/26/18 12:51 Hyposegmented Neuts Not Reportable 08/26/18 12:51 Hypogranular Neuts Not Reportable 08/26/18 12:51 Smudge Cells Not Reportable 08/26/18 12:51 Toxic Granulation Not Reportable 08/26/18 12:51 Toxic Vacuolation Not Reportable 08/26/18 12:51 Dohle Bodies Not Reportable 08/26/18 12:51 Pelger-Huet Anomaly Not Reportable 08/26/18 12:51 Tramaine Rods Not Reportable 08/26/18 12:51 Platelet Estimate Consistent w auto 08/26/18 12:51 Clumped Platelets Not Reportable 08/26/18 12:51 Plt Clumps, EDTA Not Reportable 08/26/18 12:51 Large Platelets Not Reportable 08/26/18 12:51 Giant Platelets Not Reportable 08/26/18 12:51 Platelet Satelliting Not Reportable 08/26/18 12:51 Plt Morphology Comment Not Reportable 08/26/18 12:51 RBC Morphology Not Reportable 08/26/18 12:51 Dimorphic RBCs Not Reportable 08/26/18 12:51 Polychromasia Not Reportable 08/26/18 12:51 Hypochromasia Not Reportable 08/26/18 12:51 Poikilocytosis 1+ 08/26/18 12:51 Anisocytosis 1+ 08/26/18 12:51 Microcytosis Not Reportable 08/26/18 12:51 Macrocytosis Not Reportable 08/26/18 12:51 Spherocytes Not Reportable 08/26/18 12:51 Pappenheimer Bodies Not Reportable 08/26/18 12:51 Sickle Cells Not Reportable 08/26/18 12:51 Target Cells 1+ 08/26/18 12:51 Tear Drop Cells Not Reportable 08/26/18 12:51 Ovalocytes Few 08/26/18 12:51 Helmet Cells Not Reportable 08/26/18 12:51 Zhou-[place] Bodies Not Reportable 08/26/18 12:51 [place] Rings Not Reportable 08/26/18 12:51 [place] Cells Not Reportable 08/26/18 12:51 Bite Cells Not Reportable 08/26/18 12:51 Crenated Cell Not Reportable 08/26/18 12:51 Elliptocytes Not Reportable 08/26/18 12:51 Acanthocytes (Spur) Not Reportable 08/26/18 12:51 Rouleaux Not Reportable 08/26/18 12:51 Hemoglobin C Crystals Not Reportable 08/26/18 12:51 Schistocytes Not Reportable 08/26/18 12:51 Malaria parasites Not Reportable 08/26/18 12:51 Jose Juan Bodies Not Reportable 08/26/18 12:51 Hem Pathologist Commnt No 08/26/18 12:51 Sodium 136 mmol/L (137-145) L 08/29/18 04:25 Potassium 3.6 mmol/L (3.6-5.0) 08/29/18 04:25 Chloride 97.1 mmol/L (98-107) L 08/29/18 04:25 Carbon Dioxide 27 mmol/L (22-30) 08/29/18 04:25 Anion Gap 16 mmol/L 08/29/18 04:25 BUN 24 mg/dL (9-20) H 08/29/18 04:25 Creatinine 5.1 mg/dL (0.8-1.5) H 08/29/18 04:25 Estimated GFR 14 ml/min 02/08/19 04:25 BUN/Creatinine Ratio 5 % 08/29/18 04:25 Glucose 73 mg/dL (75-100) L 08/29/18 04:25 POC Glucose 72 (70-105) 08/29/18 12:39 Lactic Acid 0.60 mmol/L (0.7-2.0) L 08/26/18 15:38 Calcium 9.4 mg/dL (8.4-10.2) 08/29/18 04:25 Total Bilirubin 0.50 mg/dL (0.1-1.2) 08/26/18 12:51 AST 12 units/L (5-40) 08/26/18 12:51 ALT 8 units/L (7-56) 08/26/18 12:51 Alkaline Phosphatase 102 units/L (35-129) 08/26/18 12:51 Total Protein 6.1 g/dL (6.3-8.2) L 08/26/18 12:51 Albumin 2.5 g/dL (3.9-5) L 08/26/18 12:51 Albumin/Globulin Ratio 0.7 % 08/26/18 12:51
[2018-08-30 17:20] LABS: Hemoglobin 9.7 gm/dl (11.8-15.2); Mean Corpuscular HGB Conc 31 % (32-34); Mean Corpuscular Volume 83 fl (84-94); Platelet Count 117 K/mm3 (140-440); Red Blood Count 3.73 M/mm3 (3.65-5.03)
[2018-08-30] MEDS: IMDUR PO SCH (17:23)
[2018-08-30] MEDS: LONITEN PO SCH ×2 (17:24→21:58)
[2018-08-30] MEDS: RisperDAL PO SCH ×2 (17:24→21:58)
[2018-08-30] MEDS: FOLVITE PO SCH (17:24)
[2018-08-30] MEDS: HALFPRIN EC PO SCH (17:24)
[2018-08-30] MEDS: COLACE PO SCH ×2 (17:24→21:58)
[2018-08-30] MEDS: SODIUM CHLORIDE FLUSH SYRINGE 10 ML IV SCH ×2 (17:24→21:59)
[2018-08-30] MEDS: ZOLOFT PO SCH (17:25)
[2018-08-30 17:40] LABS: Calcium 9.3 mg/dL (8.4-10.2)
[2018-08-30 18:37] LABS: Band Neutrophils # (Manual) 0.1 K/mm3; Basophils % (Manual) 0 % (0.0-1.8); Eosinophils % (Manual) 0 % (0.0-4.3); Total Cells Counted 100
[2018-08-30 18:38] LABS: Anisocytosis 2+; Hypochromasia 1+; Poikilocytosis Few; Target Cells Few
[2018-08-30] MEDS: NEURONTIN PO SCH (21:58)
[2018-08-30] MEDS: TYLENOL PO PRN (23:00)
[2018-08-31] MEDS: APRESOLINE PO SCH ×3 (05:32→22:36)
--- NOTE | 2018-08-31 09:52 | Progress Note ---
Subjective Principal diagnosis: malfunctioning dialysis access Interval history: Patient was seen today for follow-up on multiple renal related issues Events of this hospitalization noted Patient is resting comfortably in bed Denies having any problem Patient denies having any chest pain pressure or shortness of breath Vitals labs intake output medications were reviewed Social history: Reviewed Allergies: Reviewed Family history: Reviewed Physical examination HEENT: Oral mucosa moist no pallor or icterus Neck: Supple no JVD Chest: Clear to auscultation anteriorly CVS: Regular rate and rhythm S1 and S2 heard Abdomen: Soft nontender no suprapubic masses no organomegaly appreciable Extremity: Dry skin less than 1+ peripheral edema Musculoskeletal: No joint effusion noted in knees and ankle Neurological: Alert awake Dermatology: No petechial rashes Psychiatry: No evidence of any agitation and aggression noted Assessment and plan As renal disease currently on maintenance hemanalysis patient is currently on Saturday and Saturday schedule, Anemia chronic in end-stage renal disease, continue to monitor erythropoietin periodically, Bone mineral disorder and secondary hyperparathyroidism check phosphorus and PTH level Chronically noncompliant patient has multiple health issues including end-stage renal disease, coronary artery disease, chronic atrial fibrillation on top of which she has schizophrenia and issues with noncompliance which makes his prognosis guarded to poor Continue with supportive care for now From renal perspective his hemoglobin is 9.7 platelet count is 117,000, potassium 3.9 BUN 23 creatinine 4.7 and calcium of 9.3 Will order for follow-up labs tomorrow including intact PTH, phosphorus Status post the central venous catheter placement by vascular surgery patient do es have significant stenosis of the fistula with the multiple crushed unbroken stents Limited vascular axis has history of underlying coronary artery disease, Metabolic encephalopathy, patient also does have history of underlying schizophrenia Long-term prognosis poor We'll continue to follow and make recommendation from renal standpoint Objective - Vital Signs Vital signs: Vital Signs - 12hr 08/30/18 08/30/18 08/30/18 21:58 21:59 22:45 Temperature 100.0 F H Pulse Rate 92 H 93 H Pulse Rate [ Apical] Pulse Rate [ From Monitor] Respiratory 18 16 Rate Blood Pressure 172/72 172/72 138/61 Blood Pressure [Right] O2 Sat by Pulse 100 Oximetry 08/30/18 08/30/18 08/31/18 22:50 23:00 04:24 Temperature Pulse Rate 73 Pulse Rate [ 93 H Apical] Pulse Rate [ 93 H From Monitor] Respiratory 18 18 Rate Blood Pressure Blood Pressure [Right] O2 Sat by Pulse 100 Oximetry 08/31/18 08/31/18 05:29 05:32 Temperature 99.2 F 99.2 F Pulse Rate 70 74 Pulse Rate [ Apical] Pulse Rate [ From Monitor] Respiratory 18 18 Rate Blood Pressure 108/51 Blood Pressure 108/51 [Right] O2 Sat by Pulse 96 Oximetry - Lab 08/30/18 17:07 08/31/18 04:41 Most recent lab results Calcium 9.0 mg/dL (8.4-10.2) 08/31/18 04:41 Medications & Allergies - Medications Allergies/Adverse Reactions: Allergies haloperidol [From Haldol] Adverse Reaction (Verified 03/13/18 12:10) Unknown haloperidol lactate [From Haldol] Adverse Reaction (Verified 03/13/18 12:10) Unknown Home Medications: Home Medications Medication Instructions Recorded Confirmed Last Taken Type Gabapentin [Neurontin] 100 mg PO QHS #60 capsule 10/02/17 08/26/18 01/19/18 19: 00 Rx Acetaminophen [Acetaminophen TAB] 1,000 mg PO Q12H PRN 03/13/18 08/26/18 Unknown History Insulin Aspart [NovoLOG Flexpen] 0 units SUB-Q QWEEK 03/13/18 08/26/18 Unknown History risperiDONE [RisperDAL] 1 mg PO QAM 03/13/18 08/26/18 Unknown History Morphine ER [Ms Contin ER] 15 mg PO Q12H #7 tablet 03/15/18 08/26/18 Unknown Rx Aspirin EC [Aspirin Enteric Coated 81 mg PO DAILY 03/18/18 08/26/18 Unknown History TAB] Docusate Sodium [Colace CAP] 100 mg PO BID 03/18/18 08/26/18 Unknown History Folic Acid [Folvite] 1 mg PO DAILY 03/18/18 08/26/18 Unknown History ISOSORBIDE MONOnitrate [Imdur ER] 30 mg PO DAILY 03/18/18 08/26/18 Unknown History Metoprolol [Lopressor TAB] 50 mg PO BID 03/18/18 08/26/18 Unknown History Minoxidil [Loniten] 2.5 mg PO BID 03/18/18 08/26/18 Unknown History Sevelamer Carbonate [Renvela] 800 mg PO TIDWM 03/18/18 08/26/18 Unknown History HYDROcodone/APAP 5-325 [[place] 1 each PO Q12HR PRN #7 tablet 05/22/18 08/26/18 Unknown Rx 5-325 mg TAB] Famotidine [Pepcid] 20 mg PO DAILY #30 tablet 06/09/18 08/26/18 Unknown Rx Sertraline [Zoloft] 100 mg PO QDAY 08/26/18 08/26/18 Unknown History risperiDONE [Risperdal] 0.5 mg PO HS 08/26/18 08/26/18 Unknown History Active Medications: Generic Name Dose Route Start Last Admin Trade Name Freq PRN Reason Stop Dose Admin Acetaminophen 650 mg 08/26/18 13:19 08/30/18 23:00 Tylenol PO 650 mg Q4H PRN Administration Pain MILD(1-3)/Fever >100.5/HILL Albuterol 2.5 mg 08/26/18 13:19 Proventil IH Q4HRT PRN Shortness Of Breath Aspirin 81 mg 08/27/18 11:00 08/30/18 17:24 Halfprin Ec PO 81 mg DAILY SANCHEZ Administration Dextrose 50 ml 08/29/18 18:35 D50w (25gm) Syringe IV PRN PRN Hypoglycemia Docusate Sodium 100 mg 08/27/18 11:00 08/30/18 21:58 Colace PO 100 mg BID SANCHEZ Administration Folic Acid 1 mg 08/27/18 10:00 08/30/18 17:24 Folvite PO 1 mg DAILY SANCHEZ Administration Gabapentin 100 mg 08/27/18 22:00 08/30/18 21:58 Neurontin PO 100 mg QHS SANCHEZ Administration Hydralazine HCl 25 mg 08/27/18 22:00 08/31/18 05:32 Apresoline PO Not Given Q8HR SANCHEZ Hydralazine HCl 10 mg 08/27/18 16:06 08/30/18 00:46 Apresoline IV 10 mg Q4HR PRN Administration Hypertension Sodium Chloride 100 mls @ 999 mls/hr 08/29/18 09:30 Nacl 0.9% IV UMA PRN Hypotension Isosorbide Mononitrate 30 mg 08/27/18 11:00 08/30/18 17:23 Imdur PO 30 mg DAILY SANCHEZ Administration Minoxidil 2.5 mg 08/27/18 10:00 08/30/18 21:58 Loniten PO 2.5 mg BID SANCHEZ Administration Ondansetron HCl 4 mg 08/26/18 13:19 Zofran IV Q8H PRN Nausea And Vomiting Risperidone 1 mg 08/27/18 10:00 08/30/18 17:24 Risperdal PO 1 mg QAM SANCHEZ Administration Risperidone 0.5 mg 08/27/18 22:00 08/30/18 21:58 Risperdal PO 0.5 mg QHS SANCHEZ Administration Sertraline HCl 100 mg 08/27/18 10:00 08/30/18 17:25 Zoloft PO 100 mg QDAY SANCHEZ Administration Sodium Chloride 10 ml 08/26/18 22:00 08/30/18 21:59 Sodium Chloride Flush Syringe 10 Ml IV 10 ml BID SANCHEZ Administration Sodium Chloride 10 ml 08/26/18 13:19 08/27/18 21:48 Sodium Chloride Flush Syringe 10 Ml IV 10 ml PRN PRN Administration LINE FLUSH
[2018-08-31] MEDS: HALFPRIN EC PO SCH (10:39)
[2018-08-31] MEDS: SODIUM CHLORIDE FLUSH SYRINGE 10 ML IV SCH ×2 (10:40→22:37)
[2018-08-31] MEDS: LONITEN PO SCH ×2 (10:40→22:35)
[2018-08-31] MEDS: FOLVITE PO SCH (10:40)
[2018-08-31] MEDS: RisperDAL PO SCH ×2 (10:40→22:36)
[2018-08-31] MEDS: IMDUR PO SCH (10:40)
[2018-08-31] MEDS: COLACE PO SCH ×2 (10:40→22:35)
[2018-08-31] MEDS: ZOLOFT PO SCH (10:40)
--- NOTE | 2018-08-31 12:35 | Progress Note ---
Assessment and Plan Assessment and plan: --Hypertension;well controlled, continue current antihypertensives When necessary hydralazine --End-stage renal disease ; on hemodialysis HD per schedule, Nephrology following --AV fistula malfunction; S/P vascular procedure Vascular following --Metabolic encephalopathy ; present on admission Symptoms slightly improved ,CT head ,no acute abnormality, Aspiration precautions, fall precautions, --Bradycardia; resolved ,off beta blockers --Legally blind/Rt prosthetic eye; supportive care --DVT prophylaxis ;SCD to BLE while in bed Closely monitor the patient and adjust the management as needed Consults and recommendations noted and appreciated Possible discharge in 1-2 days if stable History Interval history: Patient seen and examined medical records reviewed No new events reported by the nursing staff Not in acute distress Vital signs noted Hospitalist Physical - Constitutional Vitals: Temp Pulse Resp BP Pulse Ox 99.2 F 74 20 108/54 98 08/31/18 05:32 08/31/18 10:40 08/31/18 10:00 08/31/18 10:40 08/31/18 10:00 General appearance: Present: no acute distress, well-nourished, obese - EENT Eyes: Present: PERRL, EOM intact - Neck Neck: Present: supple, normal ROM - Respiratory Respiratory effort: normal Respiratory: bilateral: diminished, negative: rales, rhonchi, wheezing - Cardiovascular Rhythm: regular Heart Sounds: Present: S1 & S2 - Extremities Extremities: no ischemia, No edema - Abdominal General gastrointestinal: soft, non-tender, non-distended, normal bowel sounds - Integumentary Integumentary: Present: clear, warm - Psychiatric Psychiatric: appropriate mood/affect, other (confused at times) - Neurologic Neurologic: moves all extremities, other (legally blind) Results - Labs CBC & Chem 7: 08/30/18 17:07 08/31/18 04:41 Labs: Laboratory Last Values WBC 5.1 K/mm3 (4.5-11.0) 08/30/18 17:07 RBC 3.73 M/mm3 (3.65-5.03) 08/30/18 17:07 Hgb 9.7 gm/dl (11.8-15.2) L 08/30/18 17:07 Hct 31.0 % (35.5-45.6) L 08/30/18 17:07 MCV 83 fl (84-94) L 08/30/18 17:07 MCH 26 pg (28-32) L 08/30/18 17:07 MCHC 31 % (32-34) L 08/30/18 17:07 RDW 24.0 % (13.2-15.2) H 08/30/18 17:07 Plt Count 117 K/mm3 (140-440) L 08/30/18 17:07 Lymph % (Auto) Mill Tender Second Operator 08/29/18 04:25 [place] % (Auto) Mill Tender Second Operator 08/29/18 04:25 Eos % (Auto) Mill Tender Second Operator 08/29/18 04:25 Baso % (Auto) [employer] T[employer] Second Operator 08/29/18 04:25 Lymph # Mill T[employer] Second Operator 08/29/18 04:25 [place] # Mill Tender Second Operator 08/29/18 04:25 Eos # Mill Tender Second Operator 08/29/18 04:25 Baso # Mill Tender Second Operator 08/29/18 04:25 Add Manual Diff Complete 08/30/18 17:07 Total Counted 100 08/30/18 17:07 Seg Neutrophils % Mill Tender Second Operator 08/29/18 04:25 Seg Neuts % (Manual) 90.0 % (40.0-70.0) H 08/30/18 17:07 Band Neutrophils % 2.0 % 08/30/18 17:07 Lymphocytes % (Manual) 7.0 % (13.4-35.0) L 08/30/18 17:07 Reactive Lymphs % (Man) 0 % 08/30/18 17:07 Monocytes % (Manual) 1.0 % (0.0-7.3) 08/30/18 17:07 Eosinophils % (Manual) 0 % (0.0-4.3) 08/30/18 17:07 Basophils % (Manual) 0 % (0.0-1.8) 08/30/18 17:07 Metamyelocytes % 0 % 08/30/18 17:07 Myelocytes % 0 % 08/30/18 17:07 Promyelocytes % 0 % 08/30/18 17:07 Blast Cells % 0 % 08/30/18 17:07 Nucleated RBC % Not Reportable 08/30/18 17:07 Seg Neutrophils # Mill Tender Second Operator 08/29/18 04:25 Seg Neutrophils # Man 4.6 K/mm3 (1.8-7.7) 08/30/18 17:07 Band Neutrophils # 0.1 K/mm3 08/30/18 17:07 Lymphocytes # (Manual) 0.4 K/mm3 (1.2-5.4) L 08/30/18 17:07 Abs React Lymphs (Man) 0.0 K/mm3 08/30/18 17:07 Monocytes # (Manual) 0.1 K/mm3 (0.0-0.8) 08/30/18 17:07 Eosinophils # (Manual) 0.0 K/mm3 (0.0-0.4) 08/30/18 17:07 Basophils # (Manual) 0.0 K/mm3 (0.0-0.1) 08/30/18 17:07 Metamyelocytes # 0.0 K/mm3 08/30/18 17:07 Myelocytes # 0.0 K/mm3 08/30/18 17:07 Promyelocytes # 0.0 K/mm3 08/30/18 17:07 Blast Cells # 0.0 K/mm3 08/30/18 17:07 WBC Morphology Not Reportable 08/30/18 17:07 Hypersegmented Neuts Not Reportable 08/30/18 17:07 Hyposegmented Neuts Not Reportable 08/30/18 17:07 Hypogranular Neuts Not Reportable 08/30/18 17:07 Smudge Cells Not Reportable 08/30/18 17:07 Toxic Granulation Not Reportable 08/30/18 17:07 Toxic Vacuolation Not Reportable 08/30/18 17:07 Dohle Bodies Not Reportable 08/30/18 17:07 Pelger-Huet Anomaly Not Reportable 08/30/18 17:07 Tramaine Rods Not Reportable 08/30/18 17:07 Platelet Estimate Not Reportable 08/30/18 17:07 Clumped Platelets Not Reportable 08/30/18 17:07 Plt Clumps, EDTA Not Reportable 08/30/18 17:07 Large Platelets Not Reportable 08/30/18 17:07 Giant Platelets Not Reportable 08/30/18 17:07 Platelet Satelliting Not Reportable 08/30/18 17:07 Plt Morphology Comment Not Reportable 08/30/18 17:07 RBC Morphology Not Reportable 08/30/18 17:07 Dimorphic RBCs Not Reportable 08/30/18 17:07 Polychromasia Not Reportable 08/30/18 17:07 Hypochromasia 1+ 08/30/18 17:07 Poikilocytosis Few 08/30/18 17:07 Anisocytosis 2+ 08/30/18 17:07 Microcytosis Not Reportable 08/30/18 17:07 Macrocytosis Not Reportable 08/30/18 17:07 Spherocytes Not Reportable 08/30/18 17:07 Pappenheimer Bodies Not Reportable 08/30/18 17:07 Sickle Cells Not Reportable 08/30/18 17:07 Target Cells Few 08/30/18 17:07 Tear Drop Cells Not Reportable 08/30/18 17:07 Ovalocytes Not Reportable 08/30/18 17:07 Helmet Cells Not Reportable 08/30/18 17:07 [place] Bodies Not Reportable 08/30/18 17:07 [place] Rings Not Reportable 08/30/18 17:07 [place] Cells Not Reportable 08/30/18 17:07 Bite Cells Not Reportable 08/30/18 17:07 Crenated Cell Not Reportable 08/30/18 17:07 Elliptocytes Not Reportable 08/30/18 17:07 Acanthocytes (Spur) Not Reportable 08/30/18 17:07 Rouleaux Not Reportable 08/30/18 17:07 Hemoglobin C Crystals Not Reportable 08/30/18 17:07 Schistocytes Not Reportable 08/30/18 17:07 Malaria parasites Not Reportable 08/30/18 17:07 Jose Juan Bodies Not Reportable 08/30/18 17:07 Hem Pathologist Commnt No 08/30/18 17:07 Sodium 132 mmol/L (137-145) L 08/31/18 04:41 Potassium 4.9 mmol/L (3.6-5.0) D 08/31/18 04:41 Chloride 96.5 mmol/L (98-107) L 08/31/18 04:41 Carbon Dioxide 25 mmol/L (22-30) 08/31/18 04:41 Anion Gap 15 mmol/L 08/31/18 04:41 BUN 29 mg/dL (9-20) H 08/31/18 04:41 Creatinine 5.6 mg/dL (0.8-1.5) H 08/31/18 04:41 Estimated GFR 12 ml/min 08/31/18 04:41 BUN/Creatinine Ratio 5 % 08/31/18 04:41 Glucose 70 mg/dL (75-100) L 08/31/18 04:41 POC Glucose 131 (70-105) H 08/30/18 21:43 Lactic Acid 0.60 mmol/L (0.7-2.0) L 08/26/18 15:38 Calcium 9.0 mg/dL (8.4-10.2) 08/31/18 04:41 Total Bilirubin 0.50 mg/dL (0.1-1.2) 08/26/18 12:51 AST 12 units/L (5-40) 08/26/18 12:51 ALT 8 units/L (7-56) 08/26/18 12:51 Alkaline Phosphatase 102 units/L (35-129) 08/26/18 12:51 Total Protein 6.1 g/dL (6.3-8.2) L 08/26/18 12:51 Albumin 2.5 g/dL (3.9-5) L 08/26/18 12:51 Albumin/Globulin Ratio 0.7 % 08/26/18 12:51
[2018-08-31] MEDS: TYLENOL PO PRN (14:10)
[2018-08-31] MEDS: NEURONTIN PO SCH (22:37)
[2018-09-01] MEDS: APRESOLINE PO SCH ×3 (06:19→22:45)
--- NOTE | 2018-09-01 09:21 | Progress Note ---
Subjective Principal diagnosis: malfunctioning dialysis access Interval history: Patient was seen today for follow-up on multiple renal related issues on HD TTS CVC ok Patient denies having any chest pain pressure or shortness of breath Vitals labs intake output medications were reviewed Social history: Reviewed Allergies: Reviewed Family history: Reviewed Physical examination HEENT: Oral mucosa moist no pallor or icterus Neck: Supple no JVD Chest: Clear to auscultation anteriorly CVS: Regular rate and rhythm S1 and S2 heard Abdomen: Soft nontender no suprapubic masses no organomegaly appreciable Extremity: Dry skin less than 1+ peripheral edema Musculoskeletal: No joint effusion noted in knees and ankle Neurological: Alert awake Dermatology: No petechial rashes Psychiatry: No evidence of any agitation and aggression noted Assessment and plan End-stage renal disease continue with hemodialysis 3 times per week, Saturday through central venous catheter Anemia in end-stage renal disease: To monitor and follow erythropoietin as needed, Hypertension volume: Continue to monitor history of chronic noncompliance Access issues, patient's current access is a central venous catheter he will ne ed to follow-up with vascular surgery, Bone mineral disorder and secondary hyperparathyroidism will continue to monitor phosphorus and PTH level periodically Patient must be followed by psychiatrist in the inpatient and outpatient setting History of chronic noncompliance: Makes his prognosis long-term poor From dialysis perspective his hemoglobin is 9.7, platelet count is 117,000, potassium is 4.9 BUN 29 creatinine 5.6 and calcium of 9.0 Chronically noncompliant patient has multiple health issues including end-stage renal disease, coronary artery disease, chronic atrial fibrillation on top of which she has schizophrenia and issues with noncompliance which makes his prognosis guarded to poor We'll continue to follow and make recommendation from renal standpoint Objective - Vital Signs Vital signs: Vital Signs - 12hr 08/31/18 08/31/18 08/31/18 22:00 22:36 23:55 Temperature 99.4 F Pulse Rate 74 74 71 Respiratory 16 Rate Blood Pressure 129/60 121/52 O2 Sat by Pulse 98 Oximetry 09/01/18 09/01/18 05:56 06:19 Temperature 99.2 F Pulse Rate 67 67 Respiratory 16 Rate Blood Pressure 122/55 122/55 O2 Sat by Pulse 100 Oximetry - Lab 08/30/18 17:07 08/31/18 04:41 Most recent lab results Calcium 9.0 mg/dL (8.4-10.2) 08/31/18 04:41 Medications & Allergies - Medications Allergies/Adverse Reactions: Allergies haloperidol [From Haldol] Adverse Reaction (Verified 03/13/18 12:10) Unknown haloperidol lactate [From Haldol] Adverse Reaction (Verified 03/13/18 12:10) Unknown Home Medications: Home Medications Medication Instructions Recorded Confirmed Last Taken Type Gabapentin [Neurontin] 100 mg PO QHS #60 capsule 10/02/17 08/26/18 01/19/18 19:00 Rx Acetaminophen [Acetaminophen TAB] 1,000 mg PO Q12H PRN 03/13/18 08/26/18 Unknown History Insulin Aspart [NovoLOG Flexpen] 0 units SUB-Q QWEEK 03/13/18 08/26/18 Unknown History risperiDONE [RisperDAL] 1 mg PO QAM 03/13/18 08/26/18 Unknown History Morphine ER [Ms Contin ER] 15 mg PO Q12H #7 tablet 03/15/18 08/26/18 Unknown Rx Aspirin EC [Aspirin Enteric Coated 81 mg PO DAILY 03/18/18 08/26/18 Unknown History TAB] Docusate Sodium [Colace CAP] 100 mg PO BID 03/18/18 08/26/18 Unknown History Folic Acid [Folvite] 1 mg PO DAILY 03/18/18 08/26/18 Unknown History ISOSORBIDE MONOnitrate [Imdur ER] 30 mg PO DAILY 03/18/18 08/26/18 Unknown History Metoprolol [Lopressor TAB] 50 mg PO BID 03/18/18 08/26/18 Unknown History Minoxidil [Loniten] 2.5 mg PO BID 03/18/18 08/26/18 Unknown History Sevelamer Carbonate [Renvela] 800 mg PO TIDWM 03/18/18 08/26/18 Unknown History HYDROcodone/APAP 5-325 [[place] 1 each PO Q12HR PRN #7 tablet 05/22/18 08/26/18 Unknown Rx 5-325 mg TAB] Famotidine [Pepcid] 20 mg PO DAILY #30 tablet 06/09/18 08/26/18 Unknown Rx Sertraline [Zoloft] 100 mg PO QDAY 08/26/18 08/26/18 Unknown History risperiDONE [Risperdal] 0.5 mg PO HS 08/26/18 08/26/18 Unknown History Active Medications: Generic Name Dose Route Start Last Admin Trade Name Freq PRN Reason Stop Dose Admin Acetaminophen 650 mg 08/26/18 13:19 08/31/18 14:10 Tylenol PO 650 mg Q4H PRN Administration Pain MILD(1-3)/Fever >100.5/HILL Albuterol 2.5 mg 08/26/18 13:19 Proventil IH Q4HRT PRN Shortness Of Breath Aspirin 81 mg 08/27/18 11:00 08/31/18 10:39 Halfprin Ec PO 81 mg DAILY SANCHEZ Administration Dextrose 50 ml 08/29/18 18:35 D50w (25gm) Syringe IV PRN PRN Hypoglycemia Docusate Sodium 100 mg 08/27/18 11:00 08/31/18 22:35 Colace PO 100 mg BID SANCHEZ Administration Folic Acid 1 mg 08/27/18 10:00 08/31/18 10:40 Folvite PO 1 mg DAILY SANCHEZ Administration Gabapentin 100 mg 08/27/18 22:00 08/31/18 22:37 Neurontin PO 100 mg QHS SANCHEZ Administration Hydralazine HCl 25 mg 08/27/18 22:00 09/01/18 06:19 Apresoline PO 25 mg Q8HR SANCHEZ Administration Hydralazine HCl 10 mg 08/27/18 16:06 08/30/18 00:46 Apresoline IV 10 mg Q4HR PRN Administration Hypertension Sodium Chloride 100 mls @ 999 mls/hr 08/29/18 09:30 Nacl 0.9% IV UMA PRN Hypotension Isosorbide Mononitrate 30 mg 08/27/18 11:00 08/31/18 10:40 Imdur PO Not Given DAILY SANCHEZ Minoxidil 2.5 mg 08/27/18 10:00 08/31/18 22:35 Loniten PO 2.5 mg BID SANCHEZ Administration Ondansetron HCl 4 mg 08/26/18 13:19 Zofran IV Q8H PRN Nausea And Vomiting Risperidone 1 mg 08/27/18 10:00 08/31/18 10:40 Risperdal PO 1 mg QAM SANCHEZ Administration Risperidone 0.5 mg 08/27/18 22:00 08/31/18 22:36 Risperdal PO 0.5 mg QHS SANCHEZ Administration Sertraline HCl 100 mg 08/27/18 10:00 08/31/18 10:40 Zoloft PO 100 mg QDAY SANCHEZ Administration Sodium Chloride 10 ml 08/26/18 22:00 08/31/18 22:37 Sodium Chloride Flush Syringe 10 Ml IV 10 ml BID SANCHEZ Administration Sodium Chloride 10 ml 08/26/18 13:19 08/27/18 21:48 Sodium Chloride Flush Syringe 10 Ml IV 10 ml PRN PRN Administration LINE FLUSH
[2018-09-01] MEDS: IMDUR PO SCH (09:50)
[2018-09-01] MEDS: COLACE PO SCH ×2 (09:50→22:45)
[2018-09-01] MEDS: HALFPRIN EC PO SCH (09:50)
[2018-09-01] MEDS: RisperDAL PO SCH ×2 (09:50→22:44)
[2018-09-01] MEDS: ZOLOFT PO SCH (09:50)
[2018-09-01] MEDS: FOLVITE PO SCH (09:50)
[2018-09-01] MEDS: LONITEN PO SCH ×2 (09:50→22:45)
[2018-09-01] MEDS: SODIUM CHLORIDE FLUSH SYRINGE 10 ML IV SCH ×2 (09:51→22:45)
--- NOTE | 2018-09-01 18:24 | Progress Note ---
Assessment and Plan Assessment and plan: --AV fistula malfunction; S/P vascular procedure Vascular following --Hypertension;well controlled, continue current antihypertensives When necessary hydralazine --End-stage renal disease ; on hemodialysis HD per schedule, Nephrology following --Metabolic encephalopathy ; present on admission Symptoms improved,CT head ,no acute abnormality, Aspiration precautions, fall precautions, --Bradycardia; resolved ,off beta blockers --Legally blind/Rt prosthetic eye; supportive care --DVT prophylaxis ;SCD to BLE while in bed Closely monitor the patient and adjust the management as needed Consults and recommendations noted and appreciated Possible discharge tomorrow after hemodialysis if stable History Interval history: Patient seen and examined medical records reviewed Patient feels slightly better no new complaints Legally blind not in acute distress Vital signs noted Hospitalist Physical - Constitutional Vitals: Temp Pulse Resp BP Pulse Ox 97.5 F L 73 20 117/53 97 09/01/18 11:46 09/01/18 11:46 09/01/18 11:46 09/01/18 14:29 09/01/18 11:46 General appearance: Present: no acute distress, well-nourished, obese - EENT Eyes: Present: PERRL, EOM intact - Neck Neck: Present: supple, normal ROM - Respiratory Respiratory effort: normal Respiratory: bilateral: diminished, negative: rales, rhonchi, wheezing - Cardiovascular Rhythm: regular Heart Sounds: Present: S1 & S2 - Extremities Extremities: no ischemia, No edema - Abdominal General gastrointestinal: soft, non-tender, non-distended, normal bowel sounds - Integumentary Integumentary: Present: clear, warm - Psychiatric Psychiatric: cooperative, other (legally blind) - Neurologic Neurologic: moves all extremities, other (legally blind) Results - Labs CBC & Chem 7: 08/30/18 17:07 08/31/18 04:41 Labs: Laboratory Last Values WBC 5.1 K/mm3 (4.5-11.0) 08/30/18 17:07 RBC 3.73 M/mm3 (3.65-5.03) 08/30/18 17:07 Hgb 9.7 gm/dl (11.8-15.2) L 08/30/18 17:07 Hct 31.0 % (35.5-45.6) L 08/30/18 17:07 MCV 83 fl (84-94) L 08/30/18 17:07 MCH 26 pg (28-32) L 08/30/18 17:07 MCHC 31 % (32-34) L 08/30/18 17:07 RDW 24.0 % (13.2-15.2) H 08/30/18 17:07 Plt Count 117 K/mm3 (140-440) L 08/30/18 17:07 Lymph % (Auto) Adjunct Psychology Faculty Member 08/29/18 04:25 [place] % (Auto) Adjunct Psychology Faculty Member 08/29/18 04:25 Eos % (Auto) Adjunct Psychology Faculty Member 08/29/18 04:25 Baso % (Auto) Adjunct Psychology Faculty Member 08/29/18 04:25 Lymph # Adjunct Psychology Faculty Member 08/29/18 04:25 [place] # Adjunct Psychology Faculty Member 08/29/18 04:25 Eos # Adjunct Psychology Faculty Member 08/29/18 04:25 Baso # Adjunct Psychology Faculty Member 08/29/18 04:25 Add Manual Diff Complete 08/30/18 17:07 Total Counted 100 08/30/18 17:07 Seg Neutrophils % Adjunct Psychology Faculty Member 08/29/18 04:25 Seg Neuts % (Manual) 90.0 % (40.0-70.0) H 08/30/18 17:07 Band Neutrophils % 2.0 % 08/30/18 17:07 Lymphocytes % (Manual) 7.0 % (13.4-35.0) L 08/30/18 17:07 Reactive Lymphs % (Man) 0 % 08/30/18 17:07 Monocytes % (Manual) 1.0 % (0.0-7.3) 08/30/18 17:07 Eosinophils % (Manual) 0 % (0.0-4.3) 08/30/18 17:07 Basophils % (Manual) 0 % (0.0-1.8) 08/30/18 17:07 Metamyelocytes % 0 % 08/30/18 17:07 Myelocytes % 0 % 08/30/18 17:07 Promyelocytes % 0 % 08/30/18 17:07 Blast Cells % 0 % 08/30/18 17:07 Nucleated RBC % Not Reportable 08/30/18 17:07 Seg Neutrophils # Adjunct Psychology Faculty Member 08/29/18 04:25 Seg Neutrophils # Man 4.6 K/mm3 (1.8-7.7) 08/30/18 17:07 Band Neutrophils # 0.1 K/mm3 08/30/18 17:07 Lymphocytes # (Manual) 0.4 K/mm3 (1.2-5.4) L 08/30/18 17:07 Abs React Lymphs (Man) 0.0 K/mm3 08/30/18 17:07 Monocytes # (Manual) 0.1 K/mm3 (0.0-0.8) 08/30/18 17:07 Eosinophils # (Manual) 0.0 K/mm3 (0.0-0.4) 08/30/18 17:07 Basophils # (Manual) 0.0 K/mm3 (0.0-0.1) 08/30/18 17:07 Metamyelocytes # 0.0 K/mm3 08/30/18 17:07 Myelocytes # 0.0 K/mm3 08/30/18 17:07 Promyelocytes # 0.0 K/mm3 08/30/18 17:07 Blast Cells # 0.0 K/mm3 08/30/18 17:07 WBC Morphology Not Reportable 08/30/18 17:07 Hypersegmented Neuts Not Reportable 08/30/18 17:07 Hyposegmented Neuts Not Reportable 08/30/18 17:07 Hypogranular Neuts Not Reportable 08/30/18 17:07 Smudge Cells Not Reportable 08/30/18 17:07 Toxic Granulation Not Reportable 08/30/18 17:07 Toxic Vacuolation Not Reportable 08/30/18 17:07 Dohle Bodies Not Reportable 08/30/18 17:07 Pelger-Huet Anomaly Not Reportable 08/30/18 17:07 Tramaine Rods Not Reportable 08/30/18 17:07 Platelet Estimate Not Reportable 08/30/18 17:07 Clumped Platelets Not Reportable 08/30/18 17:07 Plt Clumps, EDTA Not Reportable 08/30/18 17:07 Large Platelets Not Reportable 08/30/18 17:07 Giant Platelets Not Reportable 08/30/18 17:07 Platelet Satelliting Not Reportable 08/30/18 17:07 Plt Morphology Comment Not Reportable 08/30/18 17:07 RBC Morphology Not Reportable 08/30/18 17:07 Dimorphic RBCs Not Reportable 08/30/18 17:07 Polychromasia Not Reportable 08/30/18 17:07 Hypochromasia 1+ 08/30/18 17:07 Poikilocytosis Few 08/30/18 17:07 Anisocytosis 2+ 08/30/18 17:07 Microcytosis Not Reportable 08/30/18 17:07 Macrocytosis Not Reportable 08/30/18 17:07 Spherocytes Not Reportable 08/30/18 17:07 Pappenheimer Bodies Not Reportable 08/30/18 17:07 Sickle Cells Not Reportable 08/30/18 17:07 Target Cells Few 08/30/18 17:07 Tear Drop Cells Not Reportable 08/30/18 17:07 Ovalocytes Not Reportable 08/30/18 17:07 Helmet Cells Not Reportable 08/30/18 17:07 Zhou-Felt Bodies Not Reportable 08/30/18 17:07 [place] Rings Not Reportable 08/30/18 17:07 Hebert Cells Not Reportable 08/30/18 17:07 Bite Cells Not Reportable 08/30/18 17:07 Crenated Cell Not Reportable 08/30/18 17:07 Elliptocytes Not Reportable 08/30/18 17:07 Acanthocytes (Spur) Not Reportable 08/30/18 17:07 Rouleaux Not Reportable 08/30/18 17:07 Hemoglobin C Crystals Not Reportable 08/30/18 17:07 Schistocytes Not Reportable 08/30/18 17:07 Malaria parasites Not Reportable 08/30/18 17:07 Jose Juan Bodies Not Reportable 08/30/18 17:07 Hem Pathologist Commnt No 08/30/18 17:07 Sodium 132 mmol/L (137-145) L 08/31/18 04:41 Potassium 4.9 mmol/L (3.6-5.0) D 08/31/18 04:41 Chloride 96.5 mmol/L (98-107) L 08/31/18 04:41 Carbon Dioxide 25 mmol/L (22-30) 08/31/18 04:41 Anion Gap 15 mmol/L 08/31/18 04:41 BUN 29 mg/dL (9-20) H 08/31/18 04:41 Creatinine 5.6 mg/dL (0.8-1.5) H 08/31/18 04:41 Estimated GFR 12 ml/min 08/31/18 04:41 BUN/Creatinine Ratio 5 % 08/31/18 04:41 Glucose 70 mg/dL (75-100) L 08/31/18 04:41 POC Glucose 92 (70-105) 08/31/18 12:45 Lactic Acid 0.60 mmol/L (0.7-2.0) L 08/26/18 15:38 Calcium 9.0 mg/dL (8.4-10.2) 08/31/18 04:41 Total Bilirubin 0.50 mg/dL (0.1-1.2) 08/26/18 12:51 AST 12 units/L (5-40) 08/26/18 12:51 ALT 8 units/L (7-56) 08/26/18 12:51 Alkaline Phosphatase 102 units/L (35-129) 08/26/18 12:51 Total Protein 6.1 g/dL (6.3-8.2) L 08/26/18 12:51 Albumin 2.5 g/dL (3.9-5) L 08/26/18 12:51 Albumin/Globulin Ratio 0.7 % 08/26/18 12:51
[2018-09-01] MEDS: NEURONTIN PO SCH (22:44)
[2018-09-02] MEDS: APRESOLINE PO SCH ×2 (06:16→14:40)
[2018-09-02] MEDS ORDERED: PROCRIT SUB-Q NR (10:13)
--- NOTE | 2018-09-02 10:14 | Progress Note ---
Subjective Principal diagnosis: malfunctioning dialysis access Interval history: Patient was seen today for follow-up on multiple renal related issues Events of this hospitalization noted Patient is resting comfortably in bed Due for dialysis treatment today Patient denies having any chest pain pressure or shortness of breath Vitals labs intake output medications were reviewed Social history: Reviewed Allergies: Reviewed Family history: Reviewed Physical examination HEENT: Oral mucosa moist no pallor or icterus Neck: Supple no JVD Chest: Clear to auscultation anteriorly CVS: Regular rate and rhythm S1 and S2 heard Abdomen: Soft nontender no suprapubic masses no organomegaly appreciable Extremity: Dry skin less than 1+ peripheral edema Musculoskeletal: No joint effusion noted in knees and ankle Neurological: Alert awake Dermatology: No petechial rashes Psychiatry: No evidence of any agitation and aggression noted Assessment and plan End-stage renal disease continue with hemodialysis 3 times per week, Saturday through central venous catheter Anemia in end-stage renal disease: To monitor and follow erythropoietin as needed, 20 k today Hypertension volume: Continue to monitor history of chronic noncompliance Access issues, patient's current access is a central venous catheter he will n eed to follow-up with vascular surgery, Bone mineral disorder and secondary hyperparathyroidism will continue to monitor phosphorus and PTH level periodically Patient must be followed by psychiatrist in the inpatient and outpatient setting History of chronic noncompliance: Makes his prognosis long-term poor From dialysis perspective his hemoglobin is 9.7, platelet count is 117,000, potassium is 4.9 BUN 29 creatinine 5.6 and calcium of 9.0 Chronically noncompliant patient has multiple health issues including end-stage renal disease, coronary artery disease, chronic atrial fibrillation on top of which she has schizophrenia and issues with noncompliance which makes his prognosis guarded to poor We'll continue to follow and make recommendation from renal standpoint Objective - Vital Signs Vital signs: Vital Signs - 12hr 09/01/18 09/01/18 09/02/18 22:45 23:15 04:29 Temperature 98.6 F 98.7 F Pulse Rate 81 85 83 Respiratory 20 18 Rate Blood Pressure 146/71 156/65 O2 Sat by Pulse 94 91 Oximetry 09/02/18 06:16 Temperature Pulse Rate 83 Respiratory Rate Blood Pressure 156/65 O2 Sat by Pulse Oximetry - Lab 08/30/18 17:07 08/31/18 04:41 Most recent lab results Calcium 9.0 mg/dL (8.4-10.2) 08/31/18 04:41 Medications & Allergies - Medications Allergies/Adverse Reactions: Allergies haloperidol [From Haldol] Adverse Reaction (Verified 03/13/18 12:10) Unknown haloperidol lactate [From Haldol] Adverse Reaction (Verified 03/13/18 12:10) Unknown Home Medications: Home Medications Medication Instructions Recorded Confirmed Last Taken Type Gabapentin [Neurontin] 100 mg PO QHS #60 capsule 10/02/17 08/26/18 01/19/18 19:00 Rx Acetaminophen [Acetaminophen TAB] 1,000 mg PO Q12H PRN 03/13/18 08/26/18 Unknown History Insulin Aspart [NovoLOG Flexpen] 0 units SUB-Q QWEEK 03/13/18 08/26/18 Unknown H istory risperiDONE [RisperDAL] 1 mg PO QAM 03/13/18 08/26/18 Unknown History Morphine ER [Ms Contin ER] 15 mg PO Q12H #7 tablet 03/15/18 08/26/18 Unknown Rx Aspirin EC [Aspirin Enteric Coated 81 mg PO DAILY 03/18/18 08/26/18 Unknown History TAB] Docusate Sodium [Colace CAP] 100 mg PO BID 03/18/18 08/26/18 Unknown History Folic Acid [Folvite] 1 mg PO DAILY 03/18/18 08/26/18 Unknown History ISOSORBIDE MONOnitrate [Imdur ER] 30 mg PO DAILY 03/18/18 08/26/18 Unknown History Metoprolol [Lopressor TAB] 50 mg PO BID 03/18/18 08/26/18 Unknown History Minoxidil [Loniten] 2.5 mg PO BID 03/18/18 08/26/18 Unknown History Sevelamer Carbonate [Renvela] 800 mg PO TIDWM 03/18/18 08/26/18 Unknown History HYDROcodone/APAP 5-325 [[place] 1 each PO Q12HR PRN #7 tablet 05/22/18 08/26/18 Unknown Rx 5-325 mg TAB] Famotidine [Pepcid] 20 mg PO DAILY #30 tablet 06/09/18 08/26/18 Unknown Rx Sertraline [Zoloft] 100 mg PO QDAY 08/26/18 08/26/18 Unknown History risperiDONE [Risperdal] 0.5 mg PO HS 08/26/18 08/26/18 Unknown History Active Medications: Generic Name Dose Route Start Last Admin Trade Name Ismael PRN Reason Stop Dose Admin Acetaminophen 650 mg 08/26/18 13:19 08/31/18 14:10 Tylenol PO 650 mg Q4H PRN Administration Pain MILD(1-3)/Fever >100.5/HILL Albuterol 2.5 mg 08/26/18 13:19 Proventil IH Q4HRT PRN Shortness Of Breath Aspirin 81 mg 08/27/18 11:00 09/01/18 09:50 Halfprin Ec PO 81 mg DAILY SANCHEZ Administration Dextrose 50 ml 08/29/18 18:35 D50w (25gm) Syringe IV PRN PRN Hypoglycemia Docusate Sodium 100 mg 08/27/18 11:00 09/01/18 22:45 Colace PO 100 mg BID SANCHEZ Administration Folic Acid 1 mg 08/27/18 10:00 09/01/18 09:50 Folvite PO 1 mg DAILY SANCHEZ Administration Gabapentin 100 mg 08/27/18 22:00 09/01/18 22:44 Neurontin PO 100 mg QHS SANCHEZ Administration Hydralazine HCl 25 mg 08/27/18 22:00 09/02/18 06:16 Apresoline PO 25 mg Q8HR SANCHEZ Administration Hydralazine HCl 10 mg 08/27/18 16:06 08/30/18 00:46 Apresoline IV 10 mg Q4HR PRN Administration Hypertension Sodium Chloride 100 mls @ 999 mls/hr 08/29/18 09:30 Nacl 0.9% IV UMA PRN Hypotension Isosorbide Mononitrate 30 mg 08/27/18 11:00 09/01/18 09:50 Imdur PO 30 mg DAILY SANCHEZ Administration Minoxidil 2.5 mg 08/27/18 10:00 09/01/18 22:45 Loniten PO 2.5 mg BID SANCHEZ Administration Ondansetron HCl 4 mg 08/26/18 13:19 Zofran IV Q8H PRN Nausea And Vomiting Risperidone 1 mg 08/27/18 10:00 09/01/18 09:50 Risperdal PO 1 mg QAM SANCHEZ Administration Risperidone 0.5 mg 08/27/18 22:00 09/01/18 22:44 Risperdal PO 0.5 mg QHS SANCHEZ Administration Sertraline HCl 100 mg 08/27/18 10:00 09/01/18 09:50 Zoloft PO 100 mg QDAY SANCHEZ Administration Sodium Chloride 10 ml 08/26/18 22:00 09/01/18 22:45 Sodium Chloride Flush Syringe 10 Ml IV 10 ml BID SANCHEZ Administration Sodium Chloride 10 ml 08/26/18 13:19 08/27/18 21:48 Sodium Chloride Flush Syringe 10 Ml IV 10 ml PRN PRN Administration LINE FLUSH
--- NOTE | 2018-09-02 10:21 | Discharge Summary ---
Providers - Providers Date of Admission: 08/26/18 13:19 Date of discharge: 09/02/18 Attending physician: FLORENCIO BARRERA 08/26/18 13:19 Consult to Physician [CONS] Routine Comment: OSCAR AWARE OF PT 1400 Consulting Provider: SAM IRIZARRY Physician Instructions: Reason For Exam: esrd 08/26/18 15:22 Consult to Physician [CONS] Routine Comment: ROSALIE HOLLAND NOTIFIED 1600 Consulting Provider: PAMELA GOLDMAN Physician Instructions: Reason For Exam: AVF evaluation 08/26/18 16:56 PICC Line Insertion [Consult to PICC Line RN] [CONS] Stat Reason For Exam: unable to obtain IV access Type Line:: PICC Hospitalization Reason for admission: altered level of consciousness/malfunctioning left AV graft Condition: Fair Pertinent studies: CT head Chest x-ray vascular ultrasound Hemodialysis catheter placement Left upper extremity fistulogram; 80% stenosis within the axillary vein Proximal humerus crushed and broken stents Hospital course: 63-year-old male patient, resident of [facility] with significant history of coronary artery disease status post CABG CVA end-stage renal disease on hemodialysis schizophrenia legally blind who was admitted through emergency room with altered level of consciousness and malfunctioning of AV fistula., Patient was admitted to the hospital symptomatically managed subsequently evaluated by vascular, patient had hemodialysis catheter placement, evaluated by nephrology, underwent hemodialysis per schedule, Patient's blood pressures pressure was close wanted medications optimized, Patient's altered level of consciousness significantly improved to his baseline Vascular check the fistulogram of the graft which demonstrated numerous stents extending into the axillary vein with stenosis. Vein mapping was done, right Phallic vein appears good-sized , however patient was using right antecubital further IV access Vascular recommend repeat a vein mapping as outpatient for possible brachial K phallic AV fistula versus AV graft Today patient is comfortable, received hemodialysis, vital signs stable, physical examination unremarkable, Cleared by nephrology and vascular for discharge and follow up with them as outpatient Patient is hemodynamically and clinically stable at discharge Discharge diagnosis; --AV fistula malfunction; S/P vascular procedure Vascular f/u in 1 week --Hypertension;well controlled, continue current antihypertensives When necessary hydralazine --End-stage renal disease ; on hemodialysis [TTS] HD per schedule, Nephrology evaluated --Metabolic encephalopathy ; present on admission Symptoms improved,CT head ,no acute abnormality, Aspiration precautions, fall precautions, --Bradycardia; resolved ,off beta blockers --Legally blind/Rt prosthetic eye; supportive care --DVT prophylaxis ;SCD to BLE while in bed Patient will follow renal/HD per scheduled TTS Patient will follow up with vascular for AV fistula repair in 1 week Disposition: [id number] IBRAHIM TIFFANY Time spent for discharge: 35 min Core Measure Documentation - Palliative Care Palliative Care/ Comfort Measures: Not Applicable - Core Measures Any of the following diagnoses?: none Exam - Constitutional Vitals: Temp Pulse Resp BP Pulse Ox 98.7 F 83 18 156/65 91 09/02/18 04:29 09/02/18 06:16 09/02/18 04:29 09/02/18 06:16 09/02/18 04:29 General appearance: Present: no acute distress, well-nourished - EENT Eyes: Present: PERRL, EOM intact - Neck Neck: Present: supple, normal ROM - Respiratory Respiratory effort: normal Respiratory: bilateral: diminished, negative: rales, rhonchi, wheezing - Cardiovascular Rhythm: regular Heart Sounds: Present: S1 & S2 - Extremities Extremities: no ischemia, No edema - Abdominal General gastrointestinal: Present: soft, non-tender, non-distended, normal bowel sounds - Integumentary Integumentary: Present: clear, warm - Musculoskeletal Musculoskeletal: strength equal bilaterally, generalized weakness - Psychiatric Psychiatric: cooperative, other (legally blind) - Neurologic Neurologic: moves all extremities, other (legally blind) Plan Activity: advance as tolerated, fall precautions, other (patient is legally blind) Diet: renal Additional Instructions: Follow renal/hemodialysis per schedule [TTS]. Fall precautions. Follow vascular in 1 week Follow up with: NICO HANSEN MD [Staff Physician] - 3-5 Days LEE OROSCO MD [Staff Physician] - 7 Days MIRANDA ISLAS MD [Staff Physician] - 7 Days
[2018-09-02] MEDS ORDERED: NACL 0.9 (PRIMING MACHINE ONLY DIALYSIS) MC ONE (11:59)
[2018-09-02] MEDS: IMDUR PO SCH (14:40)
[2018-09-02] MEDS: RisperDAL PO SCH (14:40)
[2018-09-02] MEDS: COLACE PO SCH (14:40)
[2018-09-02] MEDS: LONITEN PO SCH (14:41)
[2018-09-02] MEDS: HALFPRIN EC PO SCH (14:41)
[2018-09-02] MEDS: FOLVITE PO SCH (14:41)
[2018-09-02] MEDS: ZOLOFT PO SCH (14:41)
[2018-09-02 14:42] VITALS: BP 145/65
[2018-09-02] MEDS: SODIUM CHLORIDE FLUSH SYRINGE 10 ML IV SCH (14:42)
== END 2018-09-02 15:15 | DRG 252 ==
LOC: ED 11:45 → IMCU 13:19 → 3A 08-29 16:48
PROVIDERS: ADMIT Internal Medicine; ATTEND Internal Medicine
PROC: 05783ZZ Dilation of Left Axillary Vein, Percutaneous Approach (ICD-10-PCS; principal; 2018-08-27)
PROC: 0JH63XZ Insertion of Tunneled Vascular Access Device into Chest Subcutaneous Tissue and Fascia, Percutaneous Approach (ICD-10-PCS; 2018-08-27)
PROC: 02H633Z Insertion of Infusion Device into Right Atrium, Percutaneous Approach (ICD-10-PCS; 2018-08-27)
PROC: B244ZZZ Ultrasonography of Right Heart (ICD-10-PCS; 2018-08-27)
PROC: B2141ZZ Fluoroscopy of Right Heart using Low Osmolar Contrast (ICD-10-PCS; 2018-08-27)
PROC: B51W1ZZ Fluoroscopy of Dialysis Shunt/Fistula using Low Osmolar Contrast (ICD-10-PCS; 2018-08-27)
PROC: 5A1D70Z Performance of Urinary Filtration, Intermittent, Less than 6 Hours Per Day (ICD-10-PCS; 2018-08-27)
PROC: 5A1D70Z Performance of Urinary Filtration, Intermittent, Less than 6 Hours Per Day (ICD-10-PCS; 2018-08-30)
PROC: 5A1D70Z Performance of Urinary Filtration, Intermittent, Less than 6 Hours Per Day (ICD-10-PCS; 2018-09-02)
DX: T82.7XXA Infection and inflammatory reaction due to other cardiac and vascular devices, implants and grafts, initial encounter (principal); G93.41 Metabolic encephalopathy; N18.6 End stage renal disease; F20.89 Other schizophrenia; I13.2 Hypertensive heart and chronic kidney disease with heart failure and with stage 5 chronic kidney disease, or end stage renal disease; T82.590A Other mechanical complication of surgically created arteriovenous fistula, initial encounter; N25.81 Secondary hyperparathyroidism of renal origin; I25.10 Atherosclerotic heart disease of native coronary artery without angina pectoris; H54.8 Legal blindness, as defined in USA; R00.1 Bradycardia, unspecified; E11.22 Type 2 diabetes mellitus with diabetic chronic kidney disease; E83.51 Hypocalcemia; J44.9 Chronic obstructive pulmonary disease, unspecified; Y83.2 Surgical operation with anastomosis, bypass or graft as the cause of abnormal reaction of the patient, or of later complication, without mention of misadventure at the time of the procedure; I48.2 Chronic atrial fibrillation; D63.1 Anemia in chronic kidney disease; E83.9 Disorder of mineral metabolism, unspecified; I50.9 Heart failure, unspecified; Z90.49 Acquired absence of other specified parts of digestive tract; Z95.1 Presence of aortocoronary bypass graft; Z86.73 Personal history of transient ischemic attack (TIA), and cerebral infarction without residual deficits; Z99.2 Dependence on renal dialysis; Z95.810 Presence of automatic (implantable) cardiac defibrillator; Z82.49 Family history of ischemic heart disease and other diseases of the circulatory system; Z83.3 Family history of diabetes mellitus; Z79.4 Long term (current) use of insulin; Z79.899 Other long term (current) drug therapy; Z79.82 Long term (current) use of aspirin; Y92.89 Other specified places as the place of occurrence of the external cause; Z91.14 Patient's other noncompliance with medication regimen
CPT/HCPCS: 36415; 36558; 36902; 70450; 71045; 77001; 80048; 80053; 82140; 82962; 85007; 85025; 87040; 93970; 94760; G0378; C1725; C1750; C1751; C1769; C1894; J0360; J0461; J0690; J0885; J1644; J2250; J3010; J7030; J7050; Q9967

== ENCOUNTER 2018-10-28 23:24 | Inpatient (IN) | payer MEDICARE ==
--- NOTE | 2018-10-29 00:01 | XRay Report ---
PROCEDURE: XR CHEST 1V AP TECHNIQUE: A portable upright view of the chest was obtained. HISTORY: possible aspiration COMPARISONS: 08/26/2018 FINDINGS: The heart is mildly enlarged. The lungs are not congested. There are no acute infiltrates or effusion s. There is a right-sided venous catheter with the tip in the distal SVC. There is a stent in the lef t axillary artery. The skeletal structures do not show acute changes. IMPRESSION: Cardiomegaly. No acute cardiopulmonary process.. This document is electronically signed by Kwaku Carpenter MD., October 29 2018 12:00:00 AM ET
[2018-10-29 01:04] LABS: Albumin 2.6 g/dL (3.9-5); Calcium 8.9 mg/dL (8.4-10.2)
--- NOTE | 2018-10-29 01:35 | Emergency Department Report ---
ED Altered Mental Status HPI - General Chief Complaint: Altered Mental Status Stated Complaint: LETHARGIC/FEVER Time Seen by Provider: 10/29/18 00:37 Source: patient, EMS Mode of arrival: Stretcher Limitations: Physical Limitation - History of Present Illness Initial Comments: 63-year-old male from [facility] with a past medical history hype rtension, COPD, CAD status post CABG, CVA, diabetes, atrial fibrillation, anemia, hypoparathyroidism, hypocalcemia, and end-stage renal disease on dialysis, and schizophrenia presents to the hospital with complaints of alteration in mental status. Patient apparently vomited a large amount of undigested food and then became lethargic. Patient did complete his dialysis today. He was a "fever" with a MAXIMUM TEMPERATURE of 99.8 at the [facility]. He is oriented to self only and unable to reliably answer questions. Bus Starter: Dr. Tomlinson - Related Data Home Medications Medication Instructions Recorded Confirmed Last Taken Acetaminophen [Acetaminophen TAB] 1,000 mg PO Q12H PRN 03/13/18 08/26/18 Unknown Insulin Aspart [NovoLOG Flexpen] 0 units SUB-Q QWEEK 03/13/18 08/26/18 Unknown risperiDONE [RisperDAL] 1 mg PO QAM 03/13/18 08/26/18 Unknown Aspirin EC [Aspirin Enteric Coated 81 mg PO DAILY 03/18/18 08/26/18 Unknown TAB] Docusate Sodium [Colace CAP] 100 mg PO BID 03/18/18 08/26/18 Unknown Folic Acid [Folvite] 1 mg PO DAILY 03/18/18 08/26/18 Unknown ISOSORBIDE MONOnitrate [Imdur ER] 30 mg PO DAILY 03/18/18 08/26/18 Unknown Metoprolol [Lopressor TAB] 50 mg PO BID 03/18/18 08/26/18 Unknown Minoxidil [Loniten] 2.5 mg PO BID 03/18/18 08/26/18 Unknown Sevelamer Carbonate [Renvela] 800 mg PO TIDWM 03/18/18 08/26/18 Unknown Sertraline [Zoloft] 100 mg PO QDAY 08/26/18 08/26/18 Unknown risperiDONE [Risperdal] 0.5 mg PO HS 08/26/18 08/26/18 Unknown Previous Rx's Medication Instructions Recorded Last Taken Type Gabapentin [Neurontin] 100 mg PO QHS #60 capsule 10/02/17 01/19/18 19:00 Rx Famotidine [Pepcid] 20 mg PO DAILY #30 tablet 06/09/18 Unknown Rx hydrALAZINE [Apresoline TAB] 25 mg PO Q8HR tablet 09/02/18 Unknown Rx Allergies Allergy/AdvReac Type Severity Reaction Status Date / Time haloperidol [From Haldol] AdvReac Unknown Verified 03/13/18 12:10 haloperidol lactate AdvReac Unknown Verified 03/13/18 12:10 [From Haldol] ED Review of Systems ROS: Stated complaint: LETHARGIC/FEVER Other details as noted in HPI Comment: Unobtainable due to pts medical conditions ED Past Medical Hx - Past Medical History Hx Hypertension: Yes Hx CVA: Yes Hx Heart Attack/AMI: No Hx Congestive Heart Failure: Yes Hx Diabetes: Yes Hx Renal Disease: Yes (TTS dialysis (Dr. Layne)) Hx Asthma: No Hx COPD: No Hx HIV: No Additional medical history: A. FIB; Legally Blind. Iron-deficiency Anemia. Hyperparathyroidism. Hypocalcemia. renal osteodystrophy - Surgical History Hx Open Heart Surgery: Yes Hx Pacemaker: Yes (defibrillator) Hx Internal Defibrillator: Yes Hx Appendectomy: Yes Additional Surgical History: AV fistula in the left upper extremity, hemorrhoidectomy - Social History Smoking Status: Unknown if ever smoked Substance Use Type: None - Medications Home Medications: Home Medications Medication Instructions Recorded Confirmed Last Taken Type Gabapentin [Neurontin] 100 mg PO QHS #60 capsule 10/02/17 08/26/18 01/19/18 19:00 Rx Acetaminophen [Acetaminophen TAB] 1,000 mg PO Q12H PRN 03/13/18 08/26/18 Unknown History Insulin Aspart [NovoLOG Flexpen] 0 units SUB-Q QWEEK 03/13/18 08/26/18 Unknown History risperiDONE [RisperDAL] 1 mg PO QAM 03/13/18 08/26/18 Unknown History Aspirin EC [Aspirin Enteric Coated 81 mg PO DAILY 03/18/18 08/26/18 Unknown History TAB] Docusate Sodium [Colace CAP] 100 mg PO BID 03/18/18 08/26/18 Unknown History Folic Acid [Folvite] 1 mg PO DAILY 03/18/18 08/26/18 Unknown History ISOSORBIDE MONOnitrate [Imdur ER] 30 mg PO DAILY 03/18/18 08/26/18 Unknown History Metoprolol [Lopressor TAB] 50 mg PO BID 03/18/18 08/26/18 Unknown History Minoxidil [Loniten] 2.5 mg PO BID 03/18/18 08/26/18 Unknown History Sevelamer Carbonate [Renvela] 800 mg PO TIDWM 03/18/18 08/26/18 Unknown History Famotidine [Pepcid] 20 mg PO DAILY #30 tablet 06/09/18 08/26/18 Unknown Rx Sertraline [Zoloft] 100 mg PO QDAY 08/26/18 08/26/18 Unknown History risperiDONE [Risperdal] 0.5 mg PO HS 08/26/18 08/26/18 Unknown History hydrALAZINE [Apresoline TAB] 25 mg PO Q8HR tablet 09/02/18 Unknown Rx ED Physical Exam - General Limitations: Physical Limitation - Other Other exam information: General: No limitations, patient is alert in no acute distress Head exam: Atraumatic, normocephalic ENT: Moist mucous membrane, normal oropharynx Neck exam: Normal inspection Respiratory exam: Latter rhonchi Cardiovascular: Normal rate and rhythm Abdomen: Soft, nondistended, and nontender, with normal bowel sounds, no rebound, or guarding Extremity: Pain with movement of her left arm. Bilateral arm edema left greater than right. Positive history of dialysis site of the arm. No warmth or erythema. Back: Normal Inspection, full range of motion, no tenderness Neurologic: Awake, oriented to self only. 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 Minimum leg movement Psychiatric: normal affect, normal mood Skin: Warm, dry, intact ED Course Vital Signs 10/28/18 10/28/18 10/28/18 23:22 23:25 23:30 Temperature 99.9 F H Pulse Rate 90 90 89 Respiratory 19 19 21 Rate Blood Pressure 179/77 179/77 O2 Sat by Pulse 100 100 97 Oximetry 10/28/18 10/29/18 10/29/18 23:45 00:01 00:15 Temperature Pulse Rate 91 H 96 H 98 H Respiratory 15 19 20 Rate Blood Pressure 179/77 183/86 183/86 O2 Sat by Pulse 97 Oximetry 10/29/18 10/29/18 10/29/18 00:31 00:45 01:01 Temperature Pulse Rate 96 H 94 H 95 H Respiratory 16 20 16 Rate Blood Pressure 197/86 194/82 199/87 O2 Sat by Pulse Oximetry 10/29/18 10/29/18 10/29/18 01:15 01:31 01:40 Temperature 99.2 F Pulse Rate 94 H 94 H Respiratory 15 17 Rate Blood Pressure 190/80 192/82 O2 Sat by Pulse Oximetry 10/29/18 10/29/18 10/29/18 01:45 02:01 02:15 Temperature Pulse Rate 91 H 91 H 91 H Respiratory 15 15 15 Rate Blood Pressure 201/86 197/86 192/82 O2 Sat by Pulse Oximetry 10/29/18 02:31 Temperature Pulse Rate 91 H Respiratory 14 Rate Blood Pressure 209/85 O2 Sat by Pulse Oximetry - Consultations Consultation #1: 10/29/18 04:53 case d/w Dr gerda sams, will consult - Lab Data Result diagrams: 10/29/18 01:22 10/29/18 00:31 Lab Results 10/29/18 10/29/18 10/29/18 Range/Units 00:31 00:56 01:22 WBC 5.5 (4.5-11.0) K/mm3 RBC 4.65 (3.65-5.03) M/mm3 Hgb 11.8 (11.8-15.2) gm/dl Hct 37.2 (35.5-45.6) % MCV 80 L (84-94) fl MCH 25 L (28-32) pg MCHC 32 (32-34) % RDW 20.8 H (13.2-15.2) % Plt Count 172 (140-440) K/mm3 Lymph % (Auto) Lion Trainer [place] % (Auto) Lion Trainer Eos % (Auto) Lion Trainer Baso % (Auto) Lion Trainer Lymph # Lion Trainer [place] # Lion Trainer Eos # Lion Trainer Baso # Lion Trainer Add Manual Diff Complete Total Counted 100 Seg Neutrophils % Lion Trainer Seg Neuts % (Manual) 74.0 H (40.0-70.0) % Band Neutrophils % 0 % Lymphocytes % (Manual) 12.0 L (13.4-35.0) % Reactive Lymphs % (Man) 0 % Monocytes % (Manual) 13.0 H (0.0-7.3) % Eosinophils % (Manual) 1.0 (0.0-4.3) % Basophils % (Manual) 0 (0.0-1.8) % Metamyelocytes % 0 % Myelocytes % 0 % Promyelocytes % 0 % Blast Cells % 0 % Nucleated RBC % Not Reportable Seg Neutrophils # Lion Trainer Seg Neutrophils # Man 4.1 (1.8-7.7) K/mm3 Band Neutrophils # 0.0 K/mm3 Lymphocytes # (Manual) 0.7 L (1.2-5.4) K/mm3 Abs React Lymphs (Man) 0.0 K/mm3 Monocytes # (Manual) 0.7 (0.0-0.8) K/mm3 Eosinophils # (Manual) 0.1 (0.0-0.4) K/mm3 Basophils # (Manual) 0.0 (0.0-0.1) K/mm3 Metamyelocytes # 0.0 K/mm3 Myelocytes # 0.0 K/mm3 Promyelocytes # 0.0 K/mm3 Blast Cells # 0.0 K/mm3 WBC Morphology Not Reportable Hypersegmented Neuts Not Reportable Hyposegmented Neuts Not Reportable Hypogranular Neuts Not Reportable Smudge Cells Not Reportable Toxic Granulation Not Reportable Toxic Vacuolation Not Reportable Dohle Bodies Not Reportable Pelger-Huet Anomaly Not Reportable Tramaine Rods Not Reportable Platelet Estimate Not Reportable Clumped Platelets Not Reportable Plt Clumps, EDTA Not Reportable Large Platelets Not Reportable Giant Platelets Not Reportable Platelet Satelliting Not Reportable Plt Morphology Comment Not Reportable RBC Morphology Normal Dimorphic RBCs Not Reportable Polychromasia Not Reportable Hypochromasia Not Reportable Poikilocytosis Not Reportable Anisocytosis Not Reportable Microcytosis Not Reportable Macrocytosis Not Reportable Spherocytes Not Reportable Pappenheimer Bodies Not Reportable Sickle Cells Not Reportable Target Cells Not Reportable Tear Drop Cells Not Reportable Ovalocytes Not Reportable Helmet Cells Not Reportable [place] Bodies Not Reportable [place] Rings Not Reportable Hebert Cells Not Reportable Bite Cells Not Reportable Crenated Cell Not Reportable Elliptocytes Not Reportable Acanthocytes (Spur) Not Reportable Rouleaux Not Reportable Hemoglobin C Crystals Not Reportable Schistocytes Not Reportable Malaria parasites Not Reportable Jose Juan Bodies Not Reportable Hem Pathologist Commnt No PT (12.2-14.9) Sec. INR (0.87-1.13) APTT (24.2-36.6) Sec. POC ABG pH 7.345 L (7.35-7.45) POC ABG pCO2 47.7 H (35-45) POC ABG pO2 81 (80-105) POC ABG HCO3 26.0 (22-26 mml/L) POC ABG Total CO2 27 (23-27mmol/L) POC ABG O2 Sat 95 POC ABG Base Excess 0 ((-2) - (+3)mmol/L) FiO2 32 % Sodium 128 L (137-145) mmol/L Potassium 5.0 (3.6-5.0) mmol/L Chloride 92.1 L (98-107) mmol/L Carbon Dioxide 21 L (22-30) mmol/L Anion Gap 20 mmol/L BUN 30 H (9-20) mg/dL Creatinine 3.6 H (0.8-1.5) mg/dL Estimated GFR 21 ml/min BUN/Creatinine Ratio 8 % Glucose 93 (75-100) mg/dL Calcium 8.9 (8.4-10.2) mg/dL Total Bilirubin 0.40 (0.1-1.2) mg/dL AST 23 (5-40) units/L ALT 8 (7-56) units/L Alkaline Phosphatase 97 (35-129) units/L Total Creatine Kinase (55-170) units/L CK-MB (CK-2) (0.0-4.0) ng/mL CK-MB (CK-2) Rel Index (0-4) Troponin T (0.00-0.029) ng/mL Total Protein 7.2 (6.3-8.2) g/dL Albumin 2.6 L (3.9-5) g/dL Albumin/Globulin Ratio 0.6 % Triglycerides (2-149) mg/dL Cholesterol (50-199) mg/dL LDL Cholesterol Direct (50-130) mg/dL HDL Cholesterol (40-59) mg/dL Cholesterol/HDL Ratio % Lipase (13-60) units/L 10/29/18 10/29/18 10/29/18 Range/Units 01:22 01:22 01:22 WBC (4.5-11.0) K/mm3 RBC (3.65-5.03) M/mm3 Hgb (11.8-15.2) gm/dl Hct (35.5-45.6) % MCV (84-94) fl MCH (28-32) pg MCHC (32-34) % RDW (13.2-15.2) % Plt Count (140-440) K/mm3 Lymph % (Auto) [place] % (Auto) Eos % (Auto) Baso % (Auto) Lymph # [place] # Eos # Baso # Add Manual Diff Total Counted Seg Neutrophils % Seg Neuts % (Manual) (40.0-70.0) % Band Neutrophils % % Lymphocytes % (Manual) (13.4-35.0) % Reactive Lymphs % (Man) % Monocytes % (Manual) (0.0-7.3) % Eosinophils % (Manual) (0.0-4.3) % Basophils % (Manual) (0.0-1.8) % Metamyelocytes % % Myelocytes % % Promyelocytes % % Blast Cells % % Nucleated RBC % Seg Neutrophils # Seg Neutrophils # Man (1.8-7.7) K/mm3 Band Neutrophils # K/mm3 Lymphocytes # (Manual) (1.2-5.4) K/mm3 Abs React Lymphs (Man) K/mm3 Monocytes # (Manual) (0.0-0.8) K/mm3 Eosinophils # (Manual) (0.0-0.4) K/mm3 Basophils # (Manual) (0.0-0.1) K/mm3 Metamyelocytes # K/mm3 Myelocytes # K/mm3 Promyelocytes # K/mm3 Blast Cells # K/mm3 WBC Morphology Hypersegmented Neuts Hyposegmented Neuts Hypogranular Neuts Smudge Cells Toxic Granulation Toxic Vacuolation Dohle Bodies Pelger-Huet Anomaly Tramaine Rods Platelet Estimate Clumped Platelets Plt Clumps, EDTA Large Platelets Giant Platelets Platelet Satelliting Plt Morphology Comment RBC Morphology Dimorphic RBCs Polychromasia Hypochromasia Poikilocytosis Anisocytosis Microcytosis Macrocytosis Spherocytes Pappenheimer Bodies Sickle Cells Target Cells Tear Drop Cells Ovalocytes Helmet Cells [place] Bodies [place] Rings Hebert Cells Bite Cells Crenated Cell Elliptocytes Acanthocytes (Spur) Rouleaux Hemoglobin C Crystals Schistocytes Malaria parasites Jose Juan Bodies Hem Pathologist Commnt PT 15.9 H (12.2-14.9) Sec. INR 1.19 H (0.87-1.13) APTT 34.9 (24.2-36.6) Sec. POC ABG pH (7.35-7.45) POC ABG pCO2 (35-45) POC ABG pO2 (80-105) POC ABG HCO3 (22-26 mml/L) POC ABG Total CO2 (23-27mmol/L) POC ABG O2 Sat POC ABG Base Excess ((-2) - (+3)mmol/L) FiO2 % Sodium (137-145) mmol/L Potassium (3.6-5.0) mmol/L Chloride (98-107) mmol/L Carbon Dioxide (22-30) mmol/L Anion Gap mmol/L BUN (9-20) mg/dL Creatinine (0.8-1.5) mg/dL Estimated GFR ml/min BUN/Creatinine Ratio % Glucose (75-100) mg/dL Calcium (8.4-10.2) mg/dL Total Bilirubin (0.1-1.2) mg/dL AST (5-40) units/L ALT (7-56) units/L Alkaline Phosphatase (35-129) units/L Total Creatine Kinase 27 L (55-170) units/L CK-MB (CK-2) 2.8 (0.0-4.0) ng/mL CK-MB (CK-2) Rel Index 10.3 H (0-4) Troponin T 0.142 H* (0.00-0.029) ng/mL Total Protein (6.3-8.2) g/dL Albumin (3.9-5) g/dL Albumin/Globulin Ratio % Triglycerides 51 (2-149) mg/dL Cholesterol 117 (50-199) mg/dL LDL Cholesterol Direct 49 L (50-130) mg/dL HDL Cholesterol 62 H (40-59) mg/dL Cholesterol/HDL Ratio 1.88 % Lipase 7 L (13-60) units/L - EKG Data -: EKG Interpreted by Ri EKG shows normal: sinus rhythm, axis (qrs 97), QRS complexes (qrsd 104), ST-T waves (no stemi/t inv) Rate: normal (94) When compared to previous EKG there are: no significant change - Radiology Data Radiology results: report reviewed PROCEDURE: XR CHEST 1V AP TECHNIQUE: A portable upright view of the chest was obtained. HISTORY: possible aspiration COMPARISONS: 08/26/2018 FINDINGS: The heart is mildly enlarged. The lungs are not congested. There are no acute infiltrates or effusions. There is a right-sided venous catheter with the tip in the distal SVC. There is a stent in the left axillary artery. The skeletal structures do not show acute changes. IMPRESSION: Cardiomegaly. No acute cardiopulmonary process.. PROCEDURE: CT HEAD/BRAIN WO CON TECHNIQUE: Routine axial imaging was obtained of the brain without IV contrast. HISTORY: ams COMPARISONS: 08/26/2018 FINDINGS: There are remote infarcts in both frontal lobes as well as within the right thalamus. Additional remote infarcts are seen in the left cerebellar hemisphere. There is no evidence of acute stroke or hemorrhage. The ventricular system is appropriate in size allowing for the bilateral infarcts in both frontal lobes. There are no extra-axial fluid collections. The orbital structures reveal a right ocular prosthesis. The sinuses are clear. The mastoid air cells reveal patchy fluid in the inferior left mastoid air cells compatible with chronic mastoiditis. IMPRESSION: No evidence of acute stroke or hemorrhage. Remote infarcts in both frontal lobes, right thalamus and left cerebellar hemisphere.. PROCEDURE: CT ABDOMEN PELVIS WO CON TECHNIQUE: Routine axial imaging was obtained of the abdomen and pelvis without oral or IV contrast. Sagittal and coronal reconstructions were reviewed. HISTORY: ams, vomiting COMPARISONS: 10/12/2016 FINDINGS: Images through the lung bases reveal bibasilar atelectasis with small effusions. The gallbladder is mildly distended. Stones are not seen. The liver is normal in size. The biliary tree is not dilated. The pancreas and adrenal glands appear normal. The spleen is normal in size and reveals benign calcifications. The kidneys are mildly atrophic revealing small cortical cysts bilaterally. There is no evidence of hydronephrosis. The abdominal aorta is normal in caliber. The bowel loops are normal in caliber. There is a rectal fecal impaction with the rectal diameter measures 7.6 cm in diameter. The appendix is not seen. There is no evidence of free fluid or adenopathy. The skeletal structures reveal multilevel disc degeneration in the lumbar spine with multiple chronic Schmorl's nodes involving multiple endplates. The surrounding soft tissues reveal extensive subcutaneous edema compatible with anasarca. The bladder and prostate gland appear normal. IMPRESSION: No acute process in the abdomen and pelvis. Bibasilar atelectasis with small effusions. Extensive subcutaneous edema around the abdomen and pelvis compatible with anasarca. Rectal fecal impaction. Stable arthritic changes in the lumbar spine with multiple Schmorl's nodes indenting multiple endplates.. - Medical Decision Making Patient presents to the ER with reported alteration in mental status after vomiting episode. Unfortunately patient's baseline is unknown. He does have some mild hyponatremia but overall no significant acute findings on imaging studies. Patient will be admitted to the hospitalist service and further management. Case discussed his paleobotanist who is familiar with the patient. Pt troponin is chronically elevated, repeat pending. no acute ekg changes pt is afebrile in ed and at [facility] - Differential Diagnosis CVA, dementia, encephalopathy, abdominal infection Critical Care Time: No Critical care attestation.: If time is entered above; I have spent that time in minutes in the direct care of this critically ill patient, excluding procedure time. ED Disposition Clinical Impression: End stage renal disease on dialysis, Altered mental status, Hyponatremia Disposition: 09 OP ADMIT IP TO THIS HOSP Is pt being admited?: Yes Condition: Stable Time of Disposition: 04:56 (Dr Garcia/hosp)
[2018-10-29 02:06] LABS: Hematocrit 37.2 % (35.5-45.6); Hemoglobin 11.8 gm/dl (11.8-15.2); Mean Corpuscular HGB Conc 32 % (32-34); Mean Corpuscular Volume 80 fl (84-94); Platelet Count 172 K/mm3 (140-440); Red Blood Count 4.65 M/mm3 (3.65-5.03)
[2018-10-29 02:08] LABS: Creatine Kinase MB 2.8 ng/mL (0.0-4.0)
[2018-10-29 02:09] LABS: Red Cell Distribution Width 20.8 % (13.2-15.2)
[2018-10-29 02:13] LABS: INR 1.19 (0.87-1.13)
[2018-10-29 02:14] LABS: Partial Thromboplastin Time 34.9 Sec. (24.2-36.6)
[2018-10-29 02:34] LABS: Chol/HDL Ratio 1.88 %
[2018-10-29 02:43] LABS: Basophils % (Manual) 0 % (0.0-1.8); RBC Morphology Normal; Total Cells Counted 100
--- NOTE | 2018-10-29 04:29 | Cat Scan Report ---
PROCEDURE: CT HEAD/BRAIN WO CON TECHNIQUE: Routine axial imaging was obtained of the brain without IV contrast. HISTORY: ams COMPARISONS: 08/26/2018 FINDINGS: There are remote infarcts in both frontal lobes as well as within the right thalamus. Additional regino te infarcts are seen in the left cerebellar hemisphere. There is no evidence of acute stroke or hemor rhage. The ventricular system is appropriate in size allowing for the bilateral infarcts in both fron jesika lobes. There are no extra-axial fluid collections. The orbital structures reveal a right ocular p rosthesis. The sinuses are clear. The mastoid air cells reveal patchy fluid in the inferior left mast oid air cells compatible with chronic mastoiditis. IMPRESSION: No evidence of acute stroke or hemorrhage. Remote infarcts in both frontal lobes, right thalamus and left cerebellar hemisphere.. This document is electronically signed by Kwaku Carpenter MD., October 29 2018 04:28:15 AM ET
--- NOTE | 2018-10-29 04:45 | Cat Scan Report ---
PROCEDURE: CT ABDOMEN PELVIS WO CON TECHNIQUE: Routine axial imaging was obtained of the abdomen and pelvis without oral or IV contrast. Sagittal and coronal reconstructions were reviewed. HISTORY: ams, vomiting COMPARISONS: 10/12/2016 FINDINGS: Images through the lung bases reveal bibasilar atelectasis with small effusions. The gallbladder is mildly distended. Stones are not seen. The liver is normal in size. The biliary tr ee is not dilated. The pancreas and adrenal glands appear normal. The spleen is normal in size and re veals benign calcifications. The kidneys are mildly atrophic revealing small cortical cysts bilateral ly. There is no evidence of hydronephrosis. The abdominal aorta is normal in caliber. The bowel loops are normal in caliber. There is a rectal fecal impaction with the rectal diameter measures 7.6 cm in diameter. The appendix is not seen. There is no evidence of free fluid or adenopathy. The skeletal s tructures reveal multilevel disc degeneration in the lumbar spine with multiple chronic Schmorl's nod es involving multiple endplates. The surrounding soft tissues reveal extensive subcutaneous edema com patible with anasarca. The bladder and prostate gland appear normal. IMPRESSION: No acute process in the abdomen and pelvis. Bibasilar atelectasis with small effusions. Extensive subcutaneous edema around the abdomen and pelvis compatible with anasarca. Rectal fecal impaction. Stable arthritic changes in the lumbar spine with multiple Schmorl's nodes indenting multiple endplat es.. This document is electronically signed by Kwaku Carpenter MD., October 29 2018 04:43:23 AM ET
[2018-10-29] MEDS ORDERED: SODIUM CHLORIDE FLUSH SYRINGE 10 ML IV PRN (05:05)
[2018-10-29] MEDS ORDERED: ZOFRAN IV PRN (05:05)
--- NOTE | 2018-10-29 05:11 | History and Physical Report ---
History of Present Illness Date of examination: 10/29/18 Chief complaint: AMS per report History of present illness: Pt is a 63-year-old AAA male from [facility] with past medical h istory of hypertension, COPD, CAD status post CABG, CVA, diabetes, atrial fibrillation and end-stage renal disease on dialysis who was brought to the ED via EMS on account of AMS. It was reported that the patient vomited a large amount of undigested food and then became lethargic. Fever with Tmax of 99.8F was also reported at the residential. Patient did complete his dialysis yesterday. No history could be obtained from the patient and no other complaints were reported. Past History Past Medical History: anemia, CAD, COPD, diabetes, dialysis, ESRD, heart failure, hypertension, stroke, other (atrial fibrillation, renal osteodystrophy, schizophrenia, blindness in right eye, dementia) Past Surgical History: appendectomy, CABG, Other (dialysis catheter Placement, AICD placement, hemorrhoidectomy) Social history: no significant social history (no reported current history of tobacco, alcohol or illicit drug use) Family history: other (unable to obtain due to altered mental status) Medications and Allergies Allergies Allergy/AdvReac Type Severity Reaction Status Date / Time haloperidol [From Haldol] AdvReac Unknown Verified 03/13/18 12:10 haloperidol lactate AdvReac Unknown Verified 03/13/18 12:10 [From Haldol] Home Medications Medication Instructions Recorded Confirmed Last Taken Type Gabapentin [Neurontin] 100 mg PO QHS #60 capsule 10/02/17 08/26/18 01/19/18 19:00 Rx Acetaminophen [Acetaminophen TAB] 1,000 mg PO Q12H PRN 03/13/18 08/26/18 Unknown History Insulin Aspart [NovoLOG Flexpen] 0 units SUB-Q QWEEK 03/13/18 08/26/18 Unknown History risperiDONE [RisperDAL] 1 mg PO QAM 03/13/18 08/26/18 Unknown History Aspirin EC [Aspirin Enteric Coated 81 mg PO DAILY 03/18/18 08/26/18 Unknown History TAB] Docusate Sodium [Colace CAP] 100 mg PO BID 03/18/18 08/26/18 Unknown History Folic Acid [Folvite] 1 mg PO DAILY 03/18/18 08/26/18 Unknown History ISOSORBIDE MONOnitrate [Imdur ER] 30 mg PO DAILY 03/18/18 08/26/18 Unknown History Metoprolol [Lopressor TAB] 50 mg PO BID 03/18/18 08/26/18 Unknown History Minoxidil [Loniten] 2.5 mg PO BID 03/18/18 08/26/18 Unknown History Sevelamer Carbonate [Renvela] 800 mg PO TIDWM 03/18/18 08/26/18 Unknown History Famotidine [Pepcid] 20 mg PO DAILY #30 tablet 06/09/18 08/26/18 Unknown Rx Sertraline [Zoloft] 100 mg PO QDAY 08/26/18 08/26/18 Unknown History risperiDONE [Risperdal] 0.5 mg PO HS 08/26/18 08/26/18 Unknown History hydrALAZINE [Apresoline TAB] 25 mg PO Q8HR tablet 09/02/18 Unknown Rx Active Meds: Active Medications Acetaminophen (Tylenol) 650 mg PO Q4H PRN PRN Reason: Pain MILD(1-3)/Fever >100.5/HILL Heparin Sodium (Porcine) (Heparin) 5,000 unit SUB-Q Q8HR SANCHEZ Ondansetron HCl (Zofran) 4 mg IV Q8H PRN PRN Reason: Nausea And Vomiting Sodium Chloride (Sodium Chloride Flush Syringe 10 Ml) 10 ml IV BID SANCHEZ Sodium Chloride (Sodium Chloride Flush Syringe 10 Ml) 10 ml IV PRN PRN PRN Reason: LINE FLUSH Review of Systems ROS unobtainable: due to mental status (altered mental status) Exam - Constitutional Vitals: Temp Pulse Resp BP Pulse Ox 99.2 F 101 H 16 200/93 97 10/29/18 01:40 10/29/18 05:01 10/29/18 05:01 10/29/18 03:45 10/28/18 23:45 General appearance: Present: no acute distress, obese - EENT Eyes: Present: PERRL (in left eye), EOM intact (in left eye), discharge (in right eye) ENT: hearing intact, clear oral mucosa - Neck Neck: Present: supple, normal ROM - Respiratory Respiratory effort: normal Respiratory: bilateral: CTA - Cardiovascular Rhythm: regular Heart Sounds: Present: S1 & S2. Absent: rub, click - Extremities Extremity abnormal: edema (in bilateral lower and upper extremities) - Abdominal General gastrointestinal: Present: soft, non-tender, non-distended, normal bowel sounds Male genitourinary: Present: deferred - Integumentary Integumentary: Present: clear, warm, dry - Musculoskeletal Musculoskeletal: generalized weakness - Psychiatric Psychiatric: other (could not be assessed due to altered mental status) - Neurologic Neurologic: moves all extremities Results - Labs CBC & Chem 7: 10/29/18 01:22 10/29/18 00:31 Labs: Laboratory Last Values WBC 5.5 K/mm3 (4.5-11.0) 10/29/18 01:22 RBC 4.65 M/mm3 (3.65-5.03) 10/29/18 01:22 Hgb 11.8 gm/dl (11.8-15.2) 10/29/18 01:22 Hct 37.2 % (35.5-45.6) 10/29/18 01:22 MCV 80 fl (84-94) L 10/29/18 01:22 MCH 25 pg (28-32) L 10/29/18 01:22 MCHC 32 % (32-34) 10/29/18 01:22 RDW 20.8 % (13.2-15.2) H 10/29/18 01:22 Plt Count 172 K/mm3 (140-440) 10/29/18 01:22 Lymph % (Auto) Yarn Polishing Machine Operator 10/29/18 01:22 Pine % (Auto) Yarn Polishing Machine Operator 10/29/18 01:22 Eos % (Auto) Yarn Polishing Machine Operator 10/29/18 01:22 Baso % (Auto) Yarn Polishing Machine Operator 10/29/18 01:22 Lymph # Yarn Polishing Machine Operator 10/29/18 01:22 Pine # Yarn Polishing Machine Operator 10/29/18 01:22 Eos # Yarn Polishing Machine Operator 10/29/18 01:22 Baso # Yarn Polishing Machine Operator 10/29/18 01:22 Add Manual Diff Complete 10/29/18 01:22 Total Counted 100 10/29/18 01:22 Seg Neutrophils % Yarn Polishing Machine Operator 10/29/18 01:22 Seg Neuts % (Manual) 74.0 % (40.0-70.0) H 10/29/18 01:22 Band Neutrophils % 0 % 10/29/18 01:22 Lymphocytes % (Manual) 12.0 % (13.4-35.0) L 10/29/18 01:22 Reactive Lymphs % (Man) 0 % 10/29/18 01:22 Monocytes % (Manual) 13.0 % (0.0-7.3) H 10/29/18 01:22 Eosinophils % (Manual) 1.0 % (0.0-4.3) 10/29/18 01:22 Basophils % (Manual) 0 % (0.0-1.8) 10/29/18 01:22 Metamyelocytes % 0 % 10/29/18 01:22 Myelocytes % 0 % 10/29/18 01:22 Promyelocytes % 0 % 10/29/18 01:22 Blast Cells % 0 % 10/29/18 01:22 Nucleated RBC % Not Reportable 10/29/18 01:22 Seg Neutrophils # Yarn Polishing Machine Operator 10/29/18 01:22 Seg Neutrophils # Man 4.1 K/mm3 (1.8-7.7) 10/29/18 01:22 Band Neutrophils # 0.0 K/mm3 10/29/18 01:22 Lymphocytes # (Manual) 0.7 K/mm3 (1.2-5.4) L 10/29/18 01:22 Abs React Lymphs (Man) 0.0 K/mm3 10/29/18 01:22 Monocytes # (Manual) 0.7 K/mm3 (0.0-0.8) 10/29/18 01:22 Eosinophils # (Manual) 0.1 K/mm3 (0.0-0.4) 10/29/18 01:22 Basophils # (Manual) 0.0 K/mm3 (0.0-0.1) 10/29/18 01:22 Metamyelocytes # 0.0 K/mm3 10/29/18 01:22 Myelocytes # 0.0 K/mm3 10/29/18 01:22 Promyelocytes # 0.0 K/mm3 10/29/18 01:22 Blast Cells # 0.0 K/mm3 10/29/18 01:22 WBC Morphology Not Reportable 10/29/18 01:22 Hypersegmented Neuts Not Reportable 10/29/18 01:22 Hyposegmented Neuts Not Reportable 10/29/18 01:22 Hypogranular Neuts Not Reportable 10/29/18 01:22 Smudge Cells Not Reportable 10/29/18 01:22 Toxic Granulation Not Reportable 10/29/18 01:22 Toxic Vacuolation Not Reportable 10/29/18 01:22 Dohle Bodies Not Reportable 10/29/18 01:22 Pelger-Huet Anomaly Not Reportable 10/29/18 01:22 Tramaine Rods Not Reportable 10/29/18 01:22 Platelet Estimate Not Reportable 10/29/18 01:22 Clumped Platelets Not Reportable 10/29/18 01:22 Plt Clumps, EDTA Not Reportable 10/29/18 01:22 Large Platelets Not Reportable 10/29/18 01:22 Giant Platelets Not Reportable 10/29/18 01:22 Platelet Satelliting Not Reportable 10/29/18 01:22 Plt Morphology Comment Not Reportable 10/29/18 01:22 RBC Morphology Normal 10/29/18 01:22 Dimorphic RBCs Not Reportable 10/29/18 01:22 Polychromasia Not Reportable 10/29/18 01:22 Hypochromasia Not Reportable 10/29/18 01:22 Poikilocytosis Not Reportable 10/29/18 01:22 Anisocytosis Not Reportable 10/29/18 01:22 Microcytosis Not Reportable 10/29/18 01:22 Macrocytosis Not Reportable 10/29/18 01:22 Spherocytes Not Reportable 10/29/18 01:22 Pappenheimer Bodies Not Reportable 10/29/18 01:22 Sickle Cells Not Reportable 10/29/18 01:22 Target Cells Not Reportable 10/29/18 01:22 Tear Drop Cells Not Reportable 10/29/18 01:22 Ovalocytes Not Reportable 10/29/18 01:22 Helmet Cells Not Reportable 10/29/18 01:22 [place] Bodies Not Reportable 10/29/18 01:22 [place] Rings Not Reportable 10/29/18 01:22 Ideal Cells Not Reportable 10/29/18 01:22 Bite Cells Not Reportable 10/29/18 01:22 Crenated Cell Not Reportable 10/29/18 01:22 Elliptocytes Not Reportable 10/29/18 01:22 Acanthocytes (Spur) Not Reportable 10/29/18 01:22 Rouleaux Not Reportable 10/29/18 01:22 Hemoglobin C Crystals Not Reportable 10/29/18 01:22 Schistocytes Not Reportable 10/29/18 01:22 Malaria parasites Not Reportable 10/29/18 01:22 Jose Juan Bodies Not Reportable 10/29/18 01:22 Hem Pathologist Commnt No 10/29/18 01:22 PT 15.9 Sec. (12.2-14.9) H 10/29/18 01:22 INR 1.19 (0.87-1.13) H 10/29/18 01:22 APTT 34.9 Sec. (24.2-36.6) 10/29/18 01:22 POC ABG pH 7.345 (7.35-7.45) L 10/29/18 00:56 POC ABG pCO2 47.7 (35-45) H 10/29/18 00:56 POC ABG pO2 81 (80-105) 10/29/18 00:56 POC ABG HCO3 26.0 (22-26 mml/L) 10/29/18 00:56 POC ABG Total CO2 27 (23-27mmol/L) 10/29/18 00:56 POC ABG O2 Sat 95 10/29/18 00:56 POC ABG Base Excess 0 ((-2) - (+3)mmol/L) 10/29/18 00:56 FiO2 32 % 10/29/18 00:56 Sodium 128 mmol/L (137-145) L 10/29/18 00:31 Potassium 5.0 mmol/L (3.6-5.0) 10/29/18 00:31 Chloride 92.1 mmol/L (98-107) L 10/29/18 00:31 Carbon Dioxide 21 mmol/L (22-30) L 10/29/18 00:31 Anion Gap 20 mmol/L 10/29/18 00:31 BUN 30 mg/dL (9-20) H 10/29/18 00:31 Creatinine 3.6 mg/dL (0.8-1.5) H 10/29/18 00:31 Estimated GFR 21 ml/min 10/29/18 00:31 BUN/Creatinine Ratio 8 % 10/29/18 00:31 Glucose 93 mg/dL (75-100) 10/29/18 00:31 Calcium 8.9 mg/dL (8.4-10.2) 10/29/18 00:31 Total Bilirubin 0.40 mg/dL (0.1-1.2) 10/29/18 00:31 AST 23 units/L (5-40) 10/29/18 00:31 ALT 8 units/L (7-56) 10/29/18 00:31 Alkaline Phosphatase 97 units/L (35-129) 10/29/18 00:31 Total Creatine Kinase 27 units/L (55-170) L 10/29/18 01:22 CK-MB (CK-2) 2.8 ng/mL (0.0-4.0) 10/29/18 01:22 CK-MB (CK-2) Rel Index 10.3 (0-4) H 10/29/18 01:22 Troponin T 0.142 ng/mL (0.00-0.029) H* 10/29/18 01:22 Total Protein 7.2 g/dL (6.3-8.2) 10/29/18 00:31 Albumin 2.6 g/dL (3.9-5) L 10/29/18 00:31 Albumin/Globulin Ratio 0.6 % 10/29/18 00:31 Triglycerides 51 mg/dL (2-149) 10/29/18 01:22 Cholesterol 117 mg/dL (50-199) 10/29/18 01:22 LDL Cholesterol Direct 49 mg/dL (50-130) L 10/29/18 01:22 HDL Cholesterol 62 mg/dL (40-59) H 10/29/18 01:22 Cholesterol/HDL Ratio 1.88 % 10/29/18 01:22 Lipase 7 units/L (13-60) L 10/29/18 01:22 Assessment and Plan Assessment and plan: Acute metabolic encephalopathy -Head CT scan negative for acute findings -Monitor clinically Acute on chronic hyponatremia -On fluid restriction, will monitor sodium level ESRD on hemodialysis -Nephrology consulted Anasarca -Expected to improve with dialysis Chronic troponin level elevation -Continue serial monitoring Hypertension -Uncontrolled, on antihypertensives Fecal impaction -On laxatives and enema CAD -Resume home medications when available History of CVA -Continue supportive care Atrial fibrillation -Heart rate controlled -Resume home medications Dementia, stable DM2 -controlled COPD -No acute exacerbation -On PRN duoneb Chronic systolic HF with EF of 40-45% -No acute exacerbation Disposition: Patient's overall prognosis is very poor with frequent hospitalization. He would benefit from hospice care. Time spent: 38 minutes
[2018-10-29] MEDS: HEPARIN SUB-Q SCH ×3 (06:07→22:15)
[2018-10-29] MEDS: SENOKOT S PO SCH (06:08)
[2018-10-29] MEDS ORDERED: APRESOLINE ONE (08:02)
--- NOTE | 2018-10-29 10:23 | Consultation ---
History of Present Illness - Reason for Consult Consult date: 10/29/18 end stage renal disease Requesting physician: CHELSY CAT - History of Present Illness 63-year-old male from [facility] with a past medical history hypertension, COPD, CAD status post CABG, CVA, diabetes, atrial fibrillation, anemia, hypoparathyroidism, hypocalcemia, and end-stage renal disease on dialysis, and schizophrenia presents to the hospital with complaints of alteration in mental status. Patient apparently vomited a large amount of undigested food and then became lethargic. Patient did complete his dialysis today. He was a "fever" with a MAXIMUM TEMPERATURE of 99.8 at the residential. He is oriented to self only and unable to reliably answer questions. Nephrol ogist: Dr. Tomlinson ROS: Stated complaint: LETHARGIC/FEVER Other details as noted in HPI Comment: Unobtainable due to pts medical conditions - Past Medical History Hx Hypertension: Yes Hx CVA: Yes Hx Heart Attack/AMI: No Hx Congestive Heart Failure: Yes Hx Diabetes: Yes Hx Renal Disease: Yes (TTS dialysis (Dr. Layne)) Hx Asthma: No Hx COPD: No Hx HIV: No Additional medical history: A. FIB; Legally Blind. Iron-deficiency Anemia. Hyperparathyroidism. Hypocalcemia. renal osteodystrophy - Surgical History Hx Open Heart Surgery: Yes Hx Pacemaker: Yes (defibrillator) Hx Internal Defibrillator: Yes Hx Appendectomy: Yes Additional Surgical History: AV fistula in the left upper extremity, hemorrhoidectomy - Social History Smoking Status: Unknown if ever smoked Substance Use Type: None - General Limitations: Physical Limitation - Other Other exam information: Past History Past Medical History: anemia, CAD, COPD, diabetes, dialysis, ESRD, heart failure, hypertension, stroke, other (atrial fibrillation, renal osteodystrophy, schizophrenia, blindness in right eye, dementia) Past Surgical History: appendectomy, CABG, Other (dialysis catheter Placement, AICD placement, hemorrhoidectomy) Social history: no significant social history (no reported current history of tobacco, alcohol or illicit drug use) Family history: other (unable to obtain due to altered mental status) Medications and Allergies Allergies Allergy/AdvReac Type Severity Reaction Status Date / Time haloperidol [From Haldol] AdvReac Unknown Verified 03/13/18 12:10 haloperidol lactate AdvReac Unknown Verified 03/13/18 12:10 [From Haldol] Home Medications Medication Instructions Recorded Confirmed Last Taken Type Gabapentin [Neurontin] 100 mg PO QHS #60 capsule 10/02/17 10/29/18 01/19/18 19: 00 Rx Acetaminophen [Acetaminophen TAB] 1,000 mg PO Q12H PRN 03/13/18 10/29/18 Unknown History Insulin Aspart [NovoLOG Flexpen] 0 units SUB-Q QWEEK 03/13/18 10/29/18 Unknown History risperiDONE [RisperDAL] 1 mg PO QAM 03/13/18 10/29/18 Unknown History Aspirin EC [Aspirin Enteric Coated 81 mg PO DAILY 03/18/18 10/29/18 Unknown History TAB] Docusate Sodium [Colace CAP] 100 mg PO BID 03/18/18 10/29/18 Unknown History Folic Acid [Folvite] 1 mg PO DAILY 03/18/18 10/29/18 Unknown History ISOSORBIDE MONOnitrate [Imdur ER] 30 mg PO DAILY 03/18/18 10/29/18 Unknown History Metoprolol [Lopressor TAB] 50 mg PO BID 03/18/18 10/29/18 Unknown History Minoxidil [Loniten] 2.5 mg PO BID 03/18/18 10/29/18 Unknown History Sevelamer Carbonate [Renvela] 800 mg PO TIDWM 03/18/18 10/29/18 Unknown History Famotidine [Pepcid] 20 mg PO DAILY #30 tablet 06/09/18 10/29/18 Unknown Rx Sertraline [Zoloft] 100 mg PO QDAY 08/26/18 10/29/18 Unknown History risperiDONE [Risperdal] 0.5 mg PO HS 08/26/18 10/29/18 Unknown History hydrALAZINE [Apresoline TAB] 25 mg PO Q8HR tablet 09/02/18 10/29/18 Unknown Rx Active Meds: Active Medications Acetaminophen (Tylenol) 650 mg PO Q4H PRN PRN Reason: Pain MILD(1-3)/Fever >100.5/HILL Heparin Sodium (Porcine) (Heparin) 5,000 unit SUB-Q Q8HR SANCHEZ Last Admin: 10/29/18 06:07 Dose: 5,000 unit Documented by: Hydralazine HCl (Apresoline) 20 mg IV Q4H PRN PRN Reason: Blood Pressure Lactulose (Cephulac) 20 gm PO BID [facility] Stop: 11/03/18 09:59 Ondansetron HCl (Zofran) 4 mg IV Q8H PRN PRN Reason: Nausea And Vomiting Senna/Docusate Sodium (Senokot S) 2 tab PO Q12H [facility] Last Admin: 10/29/18 06:08 Dose: 2 tab Documented by: Sodium Chloride (Sodium Chloride Flush Syringe 10 Ml) 10 ml IV BID [facility] Sodium Chloride (Sodium Chloride Flush Syringe 10 Ml) 10 ml IV PRN PRN PRN Reason: LINE FLUSH Exam - Vital Signs Vital signs: Vital Signs Pulse Resp Pulse Ox 90 19 100 10/28/18 23:22 10/28/18 23:22 10/28/18 23:22 - Physical Exam Narrative exam: General: No limitations, patient is alert in no acute distress Head exam: Atraumatic, normocephalic ENT: Moist mucous membrane, normal oropharynx Neck exam: Normal inspection Respiratory exam: Latter rhonchi Cardiovascular: Normal rate and rhythm Abdomen: Soft, nondistended, and nontender, with normal bowel sounds, no rebound, or guarding Extremity: Pain with movement of her left arm. Bilateral arm edema left greater than right. Positive history of dialysis site of the arm. No warmth or erythema. Back: Normal Inspection, full range of motion, no tenderness Neurologic: Awake, oriented to self only. Equal hand inventory taker. Minimum leg movement Psychiatric: normal affect, normal mood Skin: Warm, dry, intact Results - Lab Results 10/29/18 01:22 10/29/18 00:31 Most recent lab results Calcium 8.9 mg/dL (8.4-10.2) 10/29/18 00:31 Assessment and Plan Impression: * ESRD * AMS * Schizophrenia * HTN * cardiomyopathy * CAD * chr Afib * DM2 Plan: * HD q TTHSAT * uf with hd as tolerate * fluid restriction * renal diet * daily lytes * AMS workup per primary team
[2018-10-29] MEDS ORDERED: SIMPLE SYRUP FEEDTUBE PRN ×2 (10:27)
[2018-10-29] MEDS ORDERED: SODIUM BICARBONATE FEEDTUBE PRN (10:27)
[2018-10-29] MEDS ORDERED: PANCREAZE DR 10,500 UNIT FEEDTUBE PRN (10:27)
--- NOTE | 2018-10-29 13:58 | XRay Report ---
AP ABDOMEN: HISTORY: Feeding tube placement. The feeding tube terminates in a right lower lobe bronchus. The abdominal gas pattern is unremarkable. No masses or organomegaly is identified and there is no gross evidence of free air or fluid. No significant soft tissue calcifications are noted. IMPRESSION: The feeding tube terminates in a right lower lobe bronchus. Replacement is recommended.
--- NOTE | 2018-10-29 15:35 | Event Note ---
Date: 10/29/18 Patient was admitted earlier this morning and continue management as outlined per H&P.
[2018-10-29] MEDS: SODIUM CHLORIDE FLUSH SYRINGE 10 ML IV SCH ×2 (15:57→22:00)
[2018-10-29] MEDS: APRESOLINE IV PRN ×2 (15:59→22:16)
--- NOTE | 2018-10-29 18:54 | XRay Report ---
PROCEDURE: XR ABDOMEN 1V AP TECHNIQUE: Single AP view of the upper abdomen HISTORY: feeding tube placement COMPARISONS: 10/29/2018 FINDINGS: Enteric tube tip is in the proximal stomach. If this is to be used for feeding, this should be advanc ed approximately 20 cm into the distal stomach or proximal duodenum. Gas-filled bowel loops are prese nt in the upper abdomen. Prominent cardiac silhouette. Large bore right central venous catheter tip i s in the superior vena cava. monitor and storage bin tender device is present. IMPRESSION: Enteric tube tip is in the proximal stomach. If this is to be used for feeding, this should be advanc ed approximately 20 cm into the distal stomach or proximal duodenum. . This document is electronically signed by Nita Kee MD., October 29 2018 06:52:38 PM ET
--- NOTE | 2018-10-29 23:22 | XRay Report ---
PROCEDURE: XR ABDOMEN 1V AP TECHNIQUE: Abdominal radiograph, single view. HISTORY: placement COMPARISONS: 10/29/2018 12:35 PM. FINDINGS: Bowel gas pattern: Nonobstructive . Masses or calcifications: None . Bony structures: No significant abnormality . Other: Dobbhoff tube is terminating in the distal stomach . IMPRESSION: Dobbhoff tube is terminating in the distal stomach. This document is electronically signed by Hipolito Mckeon MD., October 29 2018 11:20:45 PM ET
[2018-10-30] MEDS: HEPARIN SUB-Q SCH ×3 (05:07→21:40)
[2018-10-30 05:58] LABS: Calcium 8.9 mg/dL (8.4-10.2)
[2018-10-30 06:02] LABS: Hemoglobin 10.8 gm/dl (11.8-15.2); Mean Corpuscular HGB Conc 32 % (32-34); Mean Corpuscular Volume 80 fl (84-94); Platelet Count 151 K/mm3 (140-440); Red Blood Count 4.25 M/mm3 (3.65-5.03)
[2018-10-30 06:04] LABS: Red Cell Distribution Width 20.8 % (13.2-15.2)
[2018-10-30 07:01] LABS: Band Neutrophils # (Manual) 0.2 K/mm3; Basophils % (Manual) 0 % (0.0-1.8); Eosinophils % (Manual) 0 % (0.0-4.3); Total Cells Counted 100
[2018-10-30 07:02] LABS: Anisocytosis 1+; Hypochromasia 1+; Target Cells Few
[2018-10-30] MEDS ORDERED: POTASSIUM CHLORIDE FEEDTUBE ONE (10:00)
[2018-10-30] MEDS: SODIUM CHLORIDE FLUSH SYRINGE 10 ML IV SCH ×2 (10:29→21:55)
[2018-10-30] MEDS ORDERED: NACL 0.9% 100 ML IV PRN (11:10)
[2018-10-30] MEDS ORDERED: PROCRIT IV PRN (11:10)
--- NOTE | 2018-10-30 11:12 | Progress Note ---
Assessment and Plan Impression: * ESRD * AMS * Schizophrenia * HTN * cardiomyopathy * CAD * chr Afib * DM2 Plan: * HD q TTHSAT * uf with hd as tolerate * fluid restriction * renal diet * daily lytes * AMS workup per primary team Subjective Date of service: 10/30/18 Principal diagnosis: esrd Interval history: resting well in bed today Objective - Exam Narrative Exam: General: No limitations, patient is alert in no acute distress Head exam: Atraumatic, normocephalic ENT: Moist mucous membrane, normal oropharynx Neck exam: Normal inspection Respiratory exam: Latter rhonchi Cardiovascular: Normal rate and rhythm Abdomen: Soft, nondistended, and nontender, with normal bowel sounds, no rebound, or guarding Extremity: Pain with movement of her left arm. Bilateral arm edema left greater than right. Positive history of dialysis site of the arm. No warmth or erythema. Back: Normal Inspection, full range of motion, no tenderness Neurologic: Awake, oriented to self only. Equal hand head of measurement & insights. Minimum leg movement Psychiatric: normal affect, normal mood Skin: Warm, dry, intact - Vital Signs Vital signs: Vital Signs - 12hr 10/29/18 10/29/18 10/29/18 23:13 23:21 23:31 Pulse Rate Blood Pressure 188/87 188/87 Blood Pressure [Right] O2 Sat by Pulse 100 97 100 Oximetry 10/29/18 10/29/18 10/29/18 23:35 23:41 23:51 Pulse Rate 113 H Blood Pressure 170/87 164/83 Blood Pressure 161/70 [Right] O2 Sat by Pulse 97 97 Oximetry 10/30/18 00:01 Pulse Rate Blood Pressure 164/83 Blood Pressure [Right] O2 Sat by Pulse 100 Oximetry - Lab 10/30/18 04:42 10/30/18 04:42 Most recent lab results Calcium 8.9 mg/dL (8.4-10.2) 10/30/18 04:42 Medications & Allergies - Medications Allergies/Adverse Reactions: Allergies haloperidol [From Haldol] Adverse Reaction (Verified 03/13/18 12:10) Unknown haloperidol lactate [From Haldol] Adverse Reaction (Verified 03/13/18 12:10) Unknown Home Medications: Home Medications Medication Instructions Recorded Confirmed Last Taken Type Gabapentin [Neurontin] 100 mg PO QHS #60 capsule 03/14/18 04/10/19 07/01/18 19:00 Rx Acetaminophen [Acetaminophen TAB] 1,000 mg PO Q12H PRN 03/13/18 10/29/18 Unknown History Insulin Aspart [NovoLOG Flexpen] 0 units SUB-Q QWEEK 03/13/18 10/29/18 Unknown History risperiDONE [RisperDAL] 1 mg PO QAM 03/13/18 10/29/18 Unknown History Aspirin EC [Aspirin Enteric Coated 81 mg PO DAILY 03/18/18 10/29/18 Unknown History TAB] Docusate Sodium [Colace CAP] 100 mg PO BID 03/18/18 10/29/18 Unknown History Folic Acid [Folvite] 1 mg PO DAILY 03/18/18 10/29/18 Unknown History ISOSORBIDE MONOnitrate [Imdur ER] 30 mg PO DAILY 03/18/18 10/29/18 Unknown History Metoprolol [Lopressor TAB] 50 mg PO BID 03/18/18 10/29/18 Unknown History Minoxidil [Loniten] 2.5 mg PO BID 03/18/18 10/29/18 Unknown History Sevelamer Carbonate [Renvela] 800 mg PO TIDWM 03/18/18 10/29/18 Unknown History Famotidine [Pepcid] 20 mg PO DAILY #30 tablet 06/09/18 10/29/18 Unknown Rx Sertraline [Zoloft] 100 mg PO QDAY 08/26/18 10/29/18 Unknown History risperiDONE [Risperdal] 0.5 mg PO HS 08/26/18 10/29/18 Unknown History hydrALAZINE [Apresoline TAB] 25 mg PO Q8HR tablet 09/02/18 10/29/18 Unknown Rx Active Medications: Generic Name Dose Route Start Last Admin Trade Name Freq PRN Reason Stop Dose Admin Acetaminophen 650 mg 10/29/18 05:05 Tylenol PO Q4H PRN Pain MILD(1-3)/Fever >100.5/HILL Lipase/Protease/Amylase 1 each 10/29/18 10:27 Pancrejewel Barrientos 10,500 Unit FEEDTUBE PRN PRN For Clogged Feeding Tube Epoetin Solitario 10,000 unit 10/30/18 11:10 Procrit IV UMA PRN hemodialysis Heparin Sodium (Porcine) 5,000 unit 10/29/18 06:00 10/30/18 05:07 Heparin SUB-Q 5,000 unit Q8HR SANCHEZ Administration Hydralazine HCl 20 mg 10/29/18 05:39 10/29/18 22:16 Apresoline IV 20 mg Q4H PRN Administration Blood Pressure Sodium Chloride 100 mls @ 999 mls/hr 10/30/18 11:10 Nacl 0.9% IV UMA PRN Hypotension Lactulose 20 gm 10/29/18 10:00 Cephulac PO 11/03/18 09:59 BID SANCHEZ Ondansetron HCl 4 mg 10/29/18 05:05 Zofran IV Q8H PRN Nausea And Vomiting Senna/Docusate Sodium 2 tab 10/29/18 06:00 10/29/18 06:08 Senokot S PO 2 tab Q12H SANCHEZ Administration Simple Syrup 15 ml 10/29/18 10:27 Simple Syrup FEEDTUBE PRN PRN Hypoglycemia Simple Syrup 30 ml 10/29/18 10:27 Simple Syrup FEEDTUBE PRN PRN Hypoglycemia Sodium Bicarbonate 325 mg 10/29/18 10:27 Sodium Bicarbonate FEEDTUBE PRN PRN For Clogged Feeding Tube Sodium Chloride 10 ml 10/29/18 10:00 10/29/18 22:00 Sodium Chloride Flush Syringe 10 Ml IV 10 ml BID SANCHEZ Administration Sodium Chloride 10 ml 10/29/18 05:05 Sodium Chloride Flush Syringe 10 Ml IV PRN PRN LINE FLUSH
--- NOTE | 2018-10-30 15:24 | Progress Note ---
Assessment and Plan Assessment and plan: Acute metabolic encephalopathy -Head CT scan negative for acute findings -Resolved Acute on chronic hyponatremia -Corrected ESRD on hemodialysis -Nephrology consulted -Continue dialysis Anasarca -Improved with dialysis Chronic troponin level elevation -Continue serial monitoring -Due to ESRD, chest pain Hypertension -Uncontrolled, on antihypertensives Fecal impaction -On laxatives and enema CAD -Resume home medications when available History of CVA -Continue supportive care Atrial fibrillation -Heart rate controlled -Resume home medications Dementia, stable DM2 -controlled COPD -No acute exacerbation -On PRN duoneb Chronic systolic HF with EF of 40-45% -No acute exacerbation Patient had speech evaluation, to restart tube feeding Disposition - possible discharge tomorrow History Interval history: Patient was seen and evaluated this morning, patient was alert and oriented. Hospitalist Physical - Physical exam Narrative exam: Not in cardiopulmonary distress. The patient appeared well nourished and normally developed. Vital signs as documented. Head exam is unremarkable. No scleral icterus . Neck is without jugular venous distension, thyromegaly, or carotid bruits. Lungs are clear to auscultation. Cardiac exam reveals regular rate and Rhythm. First and second heart sounds normal. No murmurs, rubs or gallops. Abdominal exam reveals normal bowel sounds, no masses, no organomegaly and no aortic enlargement. Extremities are nonedematous and both femoral and pedal pulses are normal. SUBSTANCE ADDICTION COORDINATOR: Alert and oriented 3. No focal weakness. - Constitutional Vitals: Temp Pulse Resp BP Pulse Ox 98.5 F 117 H 16 140/60 99 10/30/18 12:00 10/30/18 14:30 10/30/18 12:00 10/30/18 14:30 10/30/18 11:02 General appearance: Present: no acute distress, obese Results - Labs CBC & Chem 7: 10/30/18 04:42 10/30/18 04:42 Labs: Laboratory Last Values WBC 4.6 K/mm3 (4.5-11.0) 10/30/18 04:42 RBC 4.25 M/mm3 (3.65-5.03) 10/30/18 04:42 Hgb 10.8 gm/dl (11.8-15.2) L 10/30/18 04:42 Hct 34.0 % (35.5-45.6) L 10/30/18 04:42 MCV 80 fl (84-94) L 10/30/18 04:42 MCH 25 pg (28-32) L 10/30/18 04:42 MCHC 32 % (32-34) 10/30/18 04:42 RDW 20.8 % (13.2-15.2) H 10/30/18 04:42 Plt Count 151 K/mm3 (140-440) 10/30/18 04:42 Lymph % (Auto) Facilities Engineering Manager 10/29/18 01:22 [place] % (Auto) Facilities Engineering Manager 10/29/18 01:22 Eos % (Auto) Facilities Engineering Manager 10/29/18 01:22 Baso % (Auto) Facilities Engineering Manager 10/29/18 01:22 Lymph # Facilities Engineering Manager 10/29/18 01:22 [place] # Facilities Engineering Manager 10/29/18 01:22 Eos # Facilities Engineering Manager 10/29/18 01:22 Baso # Facilities Engineering Manager 10/29/18 01:22 Add Manual Diff Complete 10/30/18 04:42 Total Counted 100 10/30/18 04:42 Seg Neutrophils % Facilities Engineering Manager 10/29/18 01:22 Seg Neuts % (Manual) 89.0 % (40.0-70.0) H 10/30/18 04:42 Band Neutrophils % 5.0 % 10/30/18 04:42 Lymphocytes % (Manual) 5.0 % (13.4-35.0) L 10/30/18 04:42 Reactive Lymphs % (Man) 0 % 10/30/18 04:42 Monocytes % (Manual) 1.0 % (0.0-7.3) 10/30/18 04:42 Eosinophils % (Manual) 0 % (0.0-4.3) 10/30/18 04:42 Basophils % (Manual) 0 % (0.0-1.8) 10/30/18 04:42 Metamyelocytes % 0 % 10/30/18 04:42 Myelocytes % 0 % 10/30/18 04:42 Promyelocytes % 0 % 10/30/18 04:42 Blast Cells % 0 % 10/30/18 04:42 Nucleated RBC % Not Reportable 10/30/18 04:42 Seg Neutrophils # Facilities Engineering Manager 10/29/18 01:22 Seg Neutrophils # Man 4.1 K/mm3 (1.8-7.7) 10/30/18 04:42 Band Neutrophils # 0.2 K/mm3 10/30/18 04:42 Lymphocytes # (Manual) 0.2 K/mm3 (1.2-5.4) L 10/30/18 04:42 Abs React Lymphs (Man) 0.0 K/mm3 10/30/18 04:42 Monocytes # (Manual) 0.0 K/mm3 (0.0-0.8) 10/30/18 04:42 Eosinophils # (Manual) 0.0 K/mm3 (0.0-0.4) 10/30/18 04:42 Basophils # (Manual) 0.0 K/mm3 (0.0-0.1) 10/30/18 04:42 Metamyelocytes # 0.0 K/mm3 10/30/18 04:42 Myelocytes # 0.0 K/mm3 10/30/18 04:42 Promyelocytes # 0.0 K/mm3 10/30/18 04:42 Blast Cells # 0.0 K/mm3 10/30/18 04:42 WBC Morphology Not Reportable 10/30/18 04:42 Hypersegmented Neuts Not Reportable 10/30/18 04:42 Hyposegmented Neuts Not Reportable 10/30/18 04:42 Hypogranular Neuts Not Reportable 10/30/18 04:42 Smudge Cells Not Reportable 10/30/18 04:42 Toxic Granulation Not Reportable 10/30/18 04:42 Toxic Vacuolation Not Reportable 10/30/18 04:42 Dohle Bodies Not Reportable 10/30/18 04:42 Pelger-Huet Anomaly Not Reportable 10/30/18 04:42 Tramaine Rods Not Reportable 10/30/18 04:42 Platelet Estimate Appears normal 10/30/18 04:42 Clumped Platelets Not Reportable 10/30/18 04:42 Plt Clumps, EDTA Not Reportable 10/30/18 04:42 Large Platelets Not Reportable 10/30/18 04:42 Giant Platelets Not Reportable 10/30/18 04:42 Platelet Satelliting Not Reportable 10/30/18 04:42 Plt Morphology Comment Not Reportable 10/30/18 04:42 RBC Morphology Not Reportable 10/30/18 04:42 Dimorphic RBCs Not Reportable 10/30/18 04:42 Polychromasia Not Reportable 10/30/18 04:42 Hypochromasia 1+ 10/30/18 04:42 Poikilocytosis Not Reportable 10/30/18 04:42 Anisocytosis 1+ 10/30/18 04:42 Microcytosis Not Reportable 10/30/18 04:42 Macrocytosis Not Reportable 10/30/18 04:42 Spherocytes Not Reportable 10/30/18 04:42 Pappenheimer Bodies Not Reportable 10/30/18 04:42 Sickle Cells Not Reportable 10/30/18 04:42 Target Cells Few 10/30/18 04:42 Tear Drop Cells Not Reportable 10/30/18 04:42 Ovalocytes Not Reportable 10/30/18 04:42 Helmet Cells Not Reportable 10/30/18 04:42 Zhou-Edmund Bodies Not Reportable 10/30/18 04:42 [place] Rings Not Reportable 10/30/18 04:42 [place] Cells Not Reportable 10/30/18 04:42 Bite Cells Not Reportable 10/30/18 04:42 Crenated Cell Not Reportable 10/30/18 04:42 Elliptocytes Not Reportable 10/30/18 04:42 Acanthocytes (Spur) Not Reportable 10/30/18 04:42 Rouleaux Not Reportable 10/30/18 04:42 Hemoglobin C Crystals Not Reportable 10/30/18 04:42 Schistocytes Not Reportable 10/30/18 04:42 Malaria parasites Not Reportable 10/30/18 04:42 Jose Juan Bodies Not Reportable 10/30/18 04:42 Hem Pathologist Commnt No 10/30/18 04:42 PT 15.9 Sec. (12.2-14.9) H 10/29/18 01:22 INR 1.19 (0.87-1.13) H 10/29/18 01:22 APTT 34.9 Sec. (24.2-36.6) 10/29/18 01:22 POC ABG pH 7.345 (7.35-7.45) L 10/29/18 00:56 POC ABG pCO2 47.7 (35-45) H 10/29/18 00:56 POC ABG pO2 81 (80-105) 10/29/18 00:56 POC ABG HCO3 26.0 (22-26 mml/L) 10/29/18 00:56 POC ABG Total CO2 27 (23-27mmol/L) 10/29/18 00:56 POC ABG O2 Sat 95 10/29/18 00:56 POC ABG Base Excess 0 ((-2) - (+3)mmol/L) 10/29/18 00:56 FiO2 32 % 10/29/18 00:56 Sodium 131 mmol/L (137-145) L 10/30/18 04:42 Potassium 3.1 mmol/L (3.6-5.0) L D 10/30/18 04:42 Chloride 94.3 mmol/L (98-107) L 10/30/18 04:42 Carbon Dioxide 22 mmol/L (22-30) 10/30/18 04:42 Anion Gap 18 mmol/L 10/30/18 04:42 BUN 41 mg/dL (9-20) H 10/30/18 04:42 Creatinine 4.4 mg/dL (0.8-1.5) H 10/30/18 04:42 Estimated GFR 16 ml/min 10/30/18 04:42 BUN/Creatinine Ratio 9 % 10/30/18 04:42 Glucose 70 mg/dL (75-100) L 10/30/18 04:42 POC Glucose 62 (70-105) L 10/30/18 07:34 Calcium 8.9 mg/dL (8.4-10.2) 10/30/18 04:42 Total Bilirubin 0.40 mg/dL (0.1-1.2) 10/29/18 00:31 AST 23 units/L (5-40) 10/29/18 00:31 ALT 8 units/L (7-56) 10/29/18 00:31 Alkaline Phosphatase 97 units/L (35-129) 10/29/18 00:31 Total Creatine Kinase 27 units/L (55-170) L 10/29/18 01:22 CK-MB (CK-2) 2.8 ng/mL (0.0-4.0) 10/29/18 01:22 CK-MB (CK-2) Rel Index 10.3 (0-4) H 10/29/18 01:22 Troponin T 0.117 ng/mL (0.00-0.029) H* 10/29/18 09:16 Total Protein 7.2 g/dL (6.3-8.2) 10/29/18 00:31 Albumin 2.6 g/dL (3.9-5) L 10/29/18 00:31 Albumin/Globulin Ratio 0.6 % 10/29/18 00:31 Triglycerides 51 mg/dL (2-149) 10/29/18 01:22 Cholesterol 117 mg/dL (50-199) 10/29/18 01:22 LDL Cholesterol Direct 49 mg/dL (50-130) L 10/29/18 01:22 HDL Cholesterol 62 mg/dL (40-59) H 10/29/18 01:22 Cholesterol/HDL Ratio 1.88 % 10/29/18 01:22 Lipase 7 units/L (13-60) L 10/29/18 01:22 Active Medications - Current Medications Current Medications: Generic Name Dose Route Start Last Admin Trade Name Freq PRN Reason Stop Dose Admin Acetaminophen 650 mg 10/29/18 05:05 Tylenol PO Q4H PRN Pain MILD(1-3)/Fever >100.5/HILL Lipase/Protease/Amylase 1 each 10/29/18 10:[address] 10,500 Unit FEEDTUBE PRN PRN For Clogged Feeding Tube Epoetin Solitario 10,000 unit 10/30/18 11:10 Procrit IV UMA PRN hemodialysis Heparin Sodium (Porcine) 5,000 unit 10/29/18 06:00 10/30/18 05:07 Heparin SUB-Q 5,000 unit Q8HR SANCHEZ Administration Hydralazine HCl 20 mg 10/29/18 05:39 10/29/18 22:16 Apresoline IV 20 mg Q4H PRN Administration Blood Pressure Sodium Chloride 100 mls @ 999 mls/hr 10/30/18 11:10 Nacl 0.9% IV UMA PRN Hypotension Lactulose 20 gm 10/29/18 10:00 Cephulac PO 11/03/18 09:59 BID SANCHEZ Ondansetron HCl 4 mg 10/29/18 05:05 Zofran IV Q8H PRN Nausea And Vomiting Senna/Docusate Sodium 2 tab 10/29/18 06:00 10/29/18 06:08 Senokot S PO 2 tab Q12H SANCHEZ Administration Simple Syrup 15 ml 10/29/18 10:27 Simple Syrup FEEDTUBE PRN PRN Hypoglycemia Simple Syrup 30 ml 10/29/18 10:27 Simple Syrup FEEDTUBE PRN PRN Hypoglycemia Sodium Bicarbonate 325 mg 10/29/18 10:27 Sodium Bicarbonate FEEDTUBE PRN PRN For Clogged Feeding Tube Sodium Chloride 10 ml 10/29/18 10:00 10/29/18 22:00 Sodium Chloride Flush Syringe 10 Ml IV 10 ml BID SANCHEZ Administration Sodium Chloride 10 ml 10/29/18 05:05 Sodium Chloride Flush Syringe 10 Ml IV PRN PRN LINE FLUSH Nutrition/Malnutrition Assess - Dietary Evaluation Nutrition/Malnutrition Findings: Nutrition Notes Start: 10/29/18 10:19 Freq: Status: Active Protocol: Document 10/29/18 10:19 OL (Rec: 10/29/18 10:27 OL [id number]) Nutrition Notes Need for Assessment generated from: MD Order Initial or Follow up Assessment Current Diagnosis CKD (stage V CKD),COPD, Coronary Artery Disease, Diabetes,Hypertension,Stroke Current Diet Renal Labs/Tests Na 128 BUN 30 Cr 3.6 Albumin 2.6 Pertinent Medications Reviewed Height 5 ft 11 in Weight 190 kg [place] Body Weight (kg) 78.18 BMI 58.3 Subjective/Other Information RD consult for TF. Burn Absent Trauma Absent #1 Nutrition Diagnosis Inadequate oral intake Etiology AMS As Evidenced by Signs and Symptoms TF consult, pt. unable to feed self. Is patient on ventilator? No Is Patient Ambulatory and/or Out of Bed No REE-([facility]-confined to bed) 3258.420 Kcal/Kg value to use for calculation 10 Approximate Energy Requirements Using 1900 kcal/Kg Calculation Used for Recommendations Kcal/kg Additional Notes protein (1.2-1.5gm/kg IBW): 94 -117gm fluid: 1mL/kcal or per MD Nutrition Intervention Change Diet Order: TF Nutrition Support: Nepro at 50mL/hr with 150mL flush q4h Kcal 2,160 Protein (gm) 97 Fluid (mL) 872 Goal #1 TF to meet protein and kcal needs Goal #2 TF tolerance Anticipated Discharge Needs: Unable to determine at this time Follow-Up By: 10/31/18 Additional Comments f/u: new TF
[2018-10-30] MEDS: CEPHULAC PO SCH (18:28)
[2018-10-30] MEDS: SENOKOT S PO SCH (19:38)
[2018-10-30] MEDS: TYLENOL PO PRN (21:41)
[2018-10-31] MEDS: APRESOLINE IV PRN ×3 (00:12→21:25)
[2018-10-31] MEDS ORDERED: CARDIZEM IV ONE (01:02)
[2018-10-31] MEDS: TYLENOL PO PRN ×3 (02:08→21:24)
[2018-10-31] MEDS: HEPARIN SUB-Q SCH ×3 (05:17→21:14)
[2018-10-31 06:02] LABS: Calcium 9.1 mg/dL (8.4-10.2)
[2018-10-31] MEDS ORDERED: K-DUR PO NR (07:29)
[2018-10-31] MEDS: SODIUM CHLORIDE FLUSH SYRINGE 10 ML IV SCH ×2 (10:45→21:20)
[2018-10-31] MEDS: CEPHULAC PO SCH ×4 (10:45→22:34)
--- NOTE | 2018-10-31 10:51 | Progress Note ---
Assessment and Plan Impression: * ESRD * AMS * Schizophrenia * HTN * cardiomyopathy * CAD * chr Afib * hypokalemia * DM2 Plan: * HD q TTHSAT * increase k bath with hd * uf with hd as tolerate * fluid restriction * renal diet * daily lytes * AMS workup per primary team Subjective Date of service: 10/31/18 Principal diagnosis: esrd Interval history: resting well in bed today Objective - Exam Narrative Exam: General: No limitations, patient is alert in no acute distress Head exam: Atraumatic, normocephalic ENT: Moist mucous membrane, normal oropharynx Neck exam: Normal inspection Respiratory exam: Latter rhonchi Cardiovascular: Normal rate and rhythm Abdomen: Soft, nondistended, and nontender, with normal bowel sounds, no rebound, or guarding Extremity: Pain with movement of her left arm. Bilateral arm edema left greater than right. Positive history of dialysis site of the arm. No warmth or erythe ma. Back: Normal Inspection, full range of motion, no tenderness Neurologic: Awake, oriented to self only. 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 Minimum leg movement Psychiatric: normal affect, normal mood Skin: Warm, dry, intact - Vital Signs Vital signs: Vital Signs - 12hr 10/30/18 10/30/18 10/31/18 23:00 23:55 00:12 Temperature 101.8 F H Pulse Rate 147 H 124 H 132 H Pulse Rate [ Apical] Respiratory 20 Rate Blood Pressure 90/50 212/135 Blood Pressure [Right] O2 Sat by Pulse 92 Oximetry 10/31/18 10/31/18 10/31/18 01:48 03:25 05:17 Temperature 100.2 F H Pulse Rate 147 H 141 H 119 H Pulse Rate [ Apical] Respiratory 20 Rate Blood Pressure 147/89 189/90 189/90 Blood Pressure [Right] O2 Sat by Pulse 97 Oximetry 10/31/18 10/31/18 10/31/18 06:46 07:00 08:14 Temperature 98.3 F Pulse Rate 119 H 126 H Pulse Rate [ 124 H Apical] Respiratory 20 18 Rate Blood Pressure 117/80 Blood Pressure 152/93 [Right] O2 Sat by Pulse 98 97 Oximetry - Lab 10/30/18 04:42 10/31/18 05:09 Most recent lab results Calcium 9.1 mg/dL (8.4-10.2) 10/31/18 05:09 Medications & Allergies - Medications Allergies/Adverse Reactions: Allergies haloperidol [From Haldol] Adverse Reaction (Verified 03/13/18 12:10) Unknown haloperidol lactate [From Haldol] Adverse Reaction (Verified 03/13/18 12:10) Unknown Home Medications: Home Medications Medication Instructions Recorded Confirmed Last Taken Type Gabapentin [Neurontin] 100 mg PO QHS #60 capsule 10/02/17 10/29/18 01/19/18 19:00 Rx Acetaminophen [Acetaminophen TAB] 1,000 mg PO Q12H PRN 03/13/18 10/29/18 Unknown History Insulin Aspart [NovoLOG Flexpen] 0 units SUB-Q QWEEK 03/13/18 10/29/18 Unknown History risperiDONE [RisperDAL] 1 mg PO QAM 03/13/18 10/29/18 Unknown History Aspirin EC [Aspirin Enteric Coated 81 mg PO DAILY 03/18/18 10/29/18 Unknown History TAB] Docusate Sodium [Colace CAP] 100 mg PO BID 03/18/18 10/29/18 Unknown History Folic Acid [Folvite] 1 mg PO DAILY 03/18/18 10/29/18 Unknown History ISOSORBIDE MONOnitrate [Imdur ER] 30 mg PO DAILY 03/18/18 10/29/18 Unknown History Metoprolol [Lopressor TAB] 50 mg PO BID 03/18/18 10/29/18 Unknown History Minoxidil [Loniten] 2.5 mg PO BID 03/18/18 10/29/18 Unknown History Sevelamer Carbonate [Renvela] 800 mg PO TIDWM 03/18/18 10/29/18 Unknown History Famotidine [Pepcid] 20 mg PO DAILY #30 tablet 06/09/18 10/29/18 Unknown Rx Sertraline [Zoloft] 100 mg PO QDAY 08/26/18 10/29/18 Unknown History risperiDONE [Risperdal] 0.5 mg PO HS 08/26/18 10/29/18 Unknown History hydrALAZINE [Apresoline TAB] 25 mg PO Q8HR tablet 09/02/18 10/29/18 Unknown Rx Active Medications: Generic Name Dose Route Start Last Admin Trade Name Freq PRN Reason Stop Dose Admin Acetaminophen 650 mg 10/29/18 05:05 10/31/18 05:17 Tylenol PO 650 mg Q4H PRN Administration Pain MILD(1-3)/Fever >100.5/HILL Lipase/Protease/Amylase 1 each 10/29/18 10:27 Pancrejewel Barrientos 10,500 Unit FEEDTUBE PRN PRN For Clogged Feeding Tube Epoetin Solitario 10,000 unit 10/30/18 11:10 Procrit IV UMA PRN hemodialysis Heparin Sodium (Porcine) 5,000 unit 10/29/18 06:00 10/31/18 05:17 Heparin SUB-Q 5,000 unit Q8HR SANCHEZ Administration Hydralazine HCl 20 mg 10/29/18 05:39 10/31/18 05:17 Apresoline IV 20 mg Q4H PRN Administration Blood Pressure Sodium Chloride 100 mls @ 999 mls/hr 10/30/18 11:10 Nacl 0.9% IV UMA PRN Hypotension Lactulose 20 gm 10/29/18 10:00 10/31/18 10:45 Cephulac PO 11/03/18 09:59 20 gm BID SANCHEZ Administration Ondansetron HCl 4 mg 10/29/18 05:05 Zofran IV Q8H PRN Nausea And Vomiting Senna/Docusate Sodium 2 tab 10/29/18 06:00 10/30/18 19:38 Senokot S PO Not Given Q12H SANCHEZ Simple Syrup 15 ml 10/29/18 10:27 Simple Syrup FEEDTUBE PRN PRN Hypoglycemia Simple Syrup 30 ml 10/29/18 10:27 Simple Syrup FEEDTUBE PRN PRN Hypoglycemia Sodium Bicarbonate 325 mg 10/29/18 10:27 Sodium Bicarbonate FEEDTUBE PRN PRN For Clogged Feeding Tube Sodium Chloride 10 ml 10/29/18 10:00 10/31/18 10:45 Sodium Chloride Flush Syringe 10 Ml IV 10 ml BID SANCHEZ Administration Sodium Chloride 10 ml 10/29/18 05:05 Sodium Chloride Flush Syringe 10 Ml IV PRN PRN LINE FLUSH
--- NOTE | 2018-10-31 10:54 | XRay Report ---
AP CHEST: HISTORY: Fever A right IJ venous catheter and feeding tube are in position. Mild cardiomegaly and central pulmonary venous congestion are stable. Subtle infiltration has developed in the right middle lobe which could represent an early infiltrate. The remainder of the lungs are clear. No large pleural effusion or pneumothorax. IMPRESSION: Subtle right middle lobe infiltrate is suspected. Stable mild cardiomegaly and pulmonary venous congestion.
[2018-10-31] MEDS ORDERED: ROCEPHIN/NS 1 GM/50 ML 1 GM/50 ML BAG IV SCH (13:00)
--- NOTE | 2018-10-31 13:06 | Progress Note ---
Assessment and Plan Assessment and plan: Sepsis likely from right lower lobe pneumonia - Patient fever and tachycardia - Blood culture, urinealysis and culture ordered - Patient is on empiric Zosyn Acute metabolic encephalopathy -Head CT scan negative for acute findings -Resolved Acute on chronic hyponatremia -Corrected ESRD on hemodialysis -Nephrology consulted -Continue dialysis Anasarca -Improved with dialysis Chronic troponin level elevation -Continue serial monitoring -Due to ESRD, chest pain Hypertension -Uncontrolled, on antihypertensives Fecal impaction -On laxatives and enema CAD -Resume home medications when available History of CVA -Continue supportive care Atrial fibrillation -Heart rate controlled -Resume home medications Dementia, stable DM2 -controlled COPD -No acute exacerbation -On PRN duoneb Chronic systolic HF with EF of 40-45% -No acute exacerbation Patient had speech evaluation; patient started on pured diet Disposition; continue inpatient care History Interval history: Patient was seen and evaluated this morning, patient was alert and oriented. Patient had fever and tachycardia overnight. Hospitalist Physical - Physical exam Narrative exam: Not in cardiopulmonary distress. The patient appeared well nourished and normally developed. Vital signs as documented. Head exam is unremarkable. No scleral icterus . Neck is without jugular venous distension, thyromegaly, or carotid bruits. Lungs are clear to auscultation. Cardiac exam reveals regular rate and Rhythm. First and second heart sounds normal. No murmurs, rubs or gallops. Abdominal exam reveals normal bowel sounds, no masses, no organomegaly and no aortic enlargement. Extremities are nonedematous and both femoral and pedal pulses are normal. 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 No focal weakness. - Constitutional Vitals: Temp Pulse Resp BP Pulse Ox 98.3 F 126 H 18 117/80 97 10/31/18 08:14 10/31/18 08:14 10/31/18 08:14 10/31/18 08:14 10/31/18 08:14 General appearance: Present: no acute distress, obese Results - Labs CBC & Chem 7: 10/30/18 04:42 10/31/18 05:09 Labs: Laboratory Last Values WBC 4.6 K/mm3 (4.5-11.0) 10/30/18 04:42 RBC 4.25 M/mm3 (3.65-5.03) 10/30/18 04:42 Hgb 10.8 gm/dl (11.8-15.2) L 10/30/18 04:42 Hct 34.0 % (35.5-45.6) L 10/30/18 04:42 MCV 80 fl (84-94) L 10/30/18 04:42 MCH 25 pg (28-32) L 10/30/18 04:42 MCHC 32 % (32-34) 10/30/18 04:42 RDW 20.8 % (13.2-15.2) H 10/30/18 04:42 Plt Count 151 K/mm3 (140-440) 10/30/18 04:42 Lymph % (Auto) Coordinator Cardiopulmonary Services 10/29/18 01:22 [place] % (Auto) Coordinator Cardiopulmonary Services 10/29/18 01:22 Eos % (Auto) Coordinator Cardiopulmonary Services 10/29/18 01:22 Baso % (Auto) Coordinator Cardiopulmonary Services 10/29/18 01:22 Lymph # Coordinator Cardiopulmonary Services 10/29/18 01:22 [place] # Coordinator Cardiopulmonary Services 10/29/18 01:22 Eos # Coordinator Cardiopulmonary Services 10/29/18 01:22 Baso # Coordinator Cardiopulmonary Services 10/29/18 01:22 Add Manual Diff Complete 10/30/18 04:42 Total Counted 100 10/30/18 04:42 Seg Neutrophils % Coordinator Cardiopulmonary Services 10/29/18 01:22 Seg Neuts % (Manual) 89.0 % (40.0-70.0) H 10/30/18 04:42 Band Neutrophils % 5.0 % 10/30/18 04:42 Lymphocytes % (Manual) 5.0 % (13.4-35.0) L 10/30/18 04:42 Reactive Lymphs % (Man) 0 % 10/30/18 04:42 Monocytes % (Manual) 1.0 % (0.0-7.3) 10/30/18 04:42 Eosinophils % (Manual) 0 % (0.0-4.3) 10/30/18 04:42 Basophils % (Manual) 0 % (0.0-1.8) 10/30/18 04:42 Metamyelocytes % 0 % 10/30/18 04:42 Myelocytes % 0 % 10/30/18 04:42 Promyelocytes % 0 % 10/30/18 04:42 Blast Cells % 0 % 10/30/18 04:42 Nucleated RBC % Not Reportable 10/30/18 04:42 Seg Neutrophils # Coordinator Cardiopulmonary Services 10/29/18 01:22 Seg Neutrophils # Man 4.1 K/mm3 (1.8-7.7) 10/30/18 04:42 Band Neutrophils # 0.2 K/mm3 10/30/18 04:42 Lymphocytes # (Manual) 0.2 K/mm3 (1.2-5.4) L 10/30/18 04:42 Abs React Lymphs (Man) 0.0 K/mm3 10/30/18 04:42 Monocytes # (Manual) 0.0 K/mm3 (0.0-0.8) 10/30/18 04:42 Eosinophils # (Manual) 0.0 K/mm3 (0.0-0.4) 10/30/18 04:42 Basophils # (Manual) 0.0 K/mm3 (0.0-0.1) 10/30/18 04:42 Metamyelocytes # 0.0 K/mm3 10/30/18 04:42 Myelocytes # 0.0 K/mm3 10/30/18 04:42 Promyelocytes # 0.0 K/mm3 10/30/18 04:42 Blast Cells # 0.0 K/mm3 10/30/18 04:42 WBC Morphology Not Reportable 10/30/18 04:42 Hypersegmented Neuts Not Reportable 10/30/18 04:42 Hyposegmented Neuts Not Reportable 10/30/18 04:42 Hypogranular Neuts Not Reportable 10/30/18 04:42 Smudge Cells Not Reportable 10/30/18 04:42 Toxic Granulation Not Reportable 10/30/18 04:42 Toxic Vacuolation Not Reportable 10/30/18 04:42 Dohle Bodies Not Reportable 10/30/18 04:42 Pelger-Huet Anomaly Not Reportable 10/30/18 04:42 Tramaine Rods Not Reportable 10/30/18 04:42 Platelet Estimate Appears normal 10/30/18 04:42 Clumped Platelets Not Reportable 10/30/18 04:42 Plt Clumps, EDTA Not Reportable 10/30/18 04:42 Large Platelets Not Reportable 10/30/18 04:42 Giant Platelets Not Reportable 10/30/18 04:42 Platelet Satelliting Not Reportable 10/30/18 04:42 Plt Morphology Comment Not Reportable 10/30/18 04:42 RBC Morphology Not Reportable 10/30/18 04:42 Dimorphic RBCs Not Reportable 10/30/18 04:42 Polychromasia Not Reportable 10/30/18 04:42 Hypochromasia 1+ 10/30/18 04:42 Poikilocytosis Not Reportable 10/30/18 04:42 Anisocytosis 1+ 10/30/18 04:42 Microcytosis Not Reportable 10/30/18 04:42 Macrocytosis Not Reportable 10/30/18 04:42 Spherocytes Not Reportable 10/30/18 04:42 Pappenheimer Bodies Not Reportable 10/30/18 04:42 Sickle Cells Not Reportable 10/30/18 04:42 Target Cells Few 10/30/18 04:42 Tear Drop Cells Not Reportable 10/30/18 04:42 Ovalocytes Not Reportable 10/30/18 04:42 Helmet Cells Not Reportable 10/30/18 04:42 Zhou-Goodrich Bodies Not Reportable 10/30/18 04:42 Pickett Rings Not Reportable 10/30/18 04:42 Hebert Cells Not Reportable 10/30/18 04:42 Bite Cells Not Reportable 10/30/18 04:42 Crenated Cell Not Reportable 10/30/18 04:42 Elliptocytes Not Reportable 10/30/18 04:42 Acanthocytes (Spur) Not Reportable 10/30/18 04:42 Rouleaux Not Reportable 10/30/18 04:42 Hemoglobin C Crystals Not Reportable 10/30/18 04:42 Schistocytes Not Reportable 10/30/18 04:42 Malaria parasites Not Reportable 10/30/18 04:42 Jose Juan Bodies Not Reportable 10/30/18 04:42 Hem Pathologist Commnt No 10/30/18 04:42 PT 15.9 Sec. (12.2-14.9) H 10/29/18 01:22 INR 1.19 (0.87-1.13) H 10/29/18 01:22 APTT 34.9 Sec. (24.2-36.6) 10/29/18 01:22 POC ABG pH 7.345 (7.35-7.45) L 10/29/18 00:56 POC ABG pCO2 47.7 (35-45) H 10/29/18 00:56 POC ABG pO2 81 (80-105) 10/29/18 00:56 POC ABG HCO3 26.0 (22-26 mml/L) 10/29/18 00:56 POC ABG Total CO2 27 (23-27mmol/L) 10/29/18 00:56 POC ABG O2 Sat 95 10/29/18 00:56 POC ABG Base Excess 0 ((-2) - (+3)mmol/L) 10/29/18 00:56 FiO2 32 % 10/29/18 00:56 Sodium 133 mmol/L (137-145) L 10/31/18 05:09 Potassium 3.0 mmol/L (3.6-5.0) L 10/31/18 05:09 Chloride 94.3 mmol/L (98-107) L 10/31/18 05:09 Carbon Dioxide 23 mmol/L (22-30) 10/31/18 05:09 Anion Gap 19 mmol/L 10/31/18 05:09 BUN 27 mg/dL (9-20) H 10/31/18 05:09 Creatinine 3.6 mg/dL (0.8-1.5) H 10/31/18 05:09 Estimated GFR 21 ml/min 10/31/18 05:09 BUN/Creatinine Ratio 8 % 10/31/18 05:09 Glucose 120 mg/dL (75-100) H 10/31/18 05:09 POC Glucose 144 (70-105) H 10/31/18 08:17 Calcium 9.1 mg/dL (8.4-10.2) 10/31/18 05:09 Total Bilirubin 0.40 mg/dL (0.1-1.2) 10/29/18 00:31 AST 23 units/L (5-40) 10/29/18 00:31 ALT 8 units/L (7-56) 10/29/18 00:31 Alkaline Phosphatase 97 units/L (35-129) 10/29/18 00:31 Total Creatine Kinase 27 units/L (55-170) L 10/29/18 01:22 CK-MB (CK-2) 2.8 ng/mL (0.0-4.0) 10/29/18 01:22 CK-MB (CK-2) Rel Index 10.3 (0-4) H 10/29/18 01:22 Troponin T 0.117 ng/mL (0.00-0.029) H* 10/29/18 09:16 Total Protein 7.2 g/dL (6.3-8.2) 10/29/18 00:31 Albumin 2.6 g/dL (3.9-5) L 10/29/18 00:31 Albumin/Globulin Ratio 0.6 % 10/29/18 00:31 Triglycerides 51 mg/dL (2-149) 10/29/18 01:22 Cholesterol 117 mg/dL (50-199) 10/29/18 01:22 LDL Cholesterol Direct 49 mg/dL (50-130) L 10/29/18 01:22 HDL Cholesterol 62 mg/dL (40-59) H 10/29/18 01:22 Cholesterol/HDL Ratio 1.88 % 10/29/18 01:22 Lipase 7 units/L (13-60) L 10/29/18 01:22 Active Medications - Current Medications Current Medications: Generic Name Dose Route Start Last Admin Trade Name Freq PRN Reason Stop Dose Admin Acetaminophen 650 mg 10/29/18 05:05 10/31/18 05:17 Tylenol PO 650 mg Q4H PRN Administration Pain MILD(1-3)/Fever >100.5/HILL Lipase/Protease/Amylase 1 each 10/29/18 10:[address] 10,500 Unit FEEDTUBE PRN PRN For Clogged Feeding Tube Epoetin Solitario 10,000 unit 10/30/18 11:10 Procrit IV UMA PRN hemodialysis Heparin Sodium (Porcine) 5,000 unit 10/29/18 06:00 10/31/18 05:17 Heparin SUB-Q 5,000 unit Q8HR SANCHEZ Administration Hydralazine HCl 20 mg 10/29/18 05:39 10/31/18 05:17 Apresoline IV 20 mg Q4H PRN Administration Blood Pressure Sodium Chloride 100 mls @ 999 mls/hr 10/30/18 11:10 Nacl 0.9% IV UMA PRN Hypotension Lactulose 20 gm 10/29/18 10:00 10/31/18 10:45 Cephulac PO 11/03/18 09:59 20 gm BID SANCHEZ Administration Ondansetron HCl 4 mg 10/29/18 05:05 Zofran IV Q8H PRN Nausea And Vomiting Senna/Docusate Sodium 2 tab 10/29/18 06:00 10/30/18 19:38 Senokot S PO Not Given Q12H SANCHEZ Simple Syrup 15 ml 10/29/18 10:27 Simple Syrup FEEDTUBE PRN PRN Hypoglycemia Simple Syrup 30 ml 10/29/18 10:27 Simple Syrup FEEDTUBE PRN PRN Hypoglycemia Sodium Bicarbonate 325 mg 10/29/18 10:27 Sodium Bicarbonate FEEDTUBE PRN PRN For Clogged Feeding Tube Sodium Chloride 10 ml 10/29/18 10:00 10/31/18 10:45 Sodium Chloride Flush Syringe 10 Ml IV 10 ml BID SANCHEZ Administration Sodium Chloride 10 ml 10/29/18 05:05 Sodium Chloride Flush Syringe 10 Ml IV PRN PRN LINE FLUSH Nutrition/Malnutrition Assess - Dietary Evaluation Nutrition/Malnutrition Findings: Nutrition Notes Start: 10/29/18 10:19 Freq: Status: Active Protocol: Document 10/29/18 10:19 OL (Rec: 10/29/18 10:27 OL [id number]) Nutrition Notes Need for Assessment generated from: MD Order Initial or Follow up Assessment Current Diagnosis CKD (stage V CKD),COPD, Coronary Artery Disease, Diabetes,Hypertension,Stroke Current Diet Renal Labs/Tests Na 128 BUN 30 Cr 3.6 Albumin 2.6 Pertinent Medications Reviewed Height 5 ft 11 in Weight 190 kg [place] Body Weight (kg) 78.18 BMI 58.3 Subjective/Other Information RD consult for TF. Burn Absent Trauma Absent #1 Nutrition Diagnosis Inadequate oral intake Etiology AMS As Evidenced by Signs and Symptoms TF consult, pt. unable to feed self. Is patient on ventilator? No Is Patient Ambulatory and/or Out of Bed No REE-([facility]-confined to bed) [phone] Kcal/Kg value to use for calculation 10 Approximate Energy Requirements Using 1900 kcal/Kg Calculation Used for Recommendations Kcal/kg Additional Notes protein (1.2-1.5gm/kg IBW): 94 -117gm fluid: 1mL/kcal or per MD Nutrition Intervention Change Diet Order: TF Nutrition Support: Nepro at 50mL/hr with 150mL flush q4h Kcal 2,160 Protein (gm) 97 Fluid (mL) 872 Goal #1 TF to meet protein and kcal needs Goal #2 TF tolerance Anticipated Discharge Needs: Unable to determine at this time Follow-Up By: 10/31/18 Additional Comments f/u: new TF
[2018-10-31] MEDS ORDERED: ZOSYN/NS 3.375GM/50ML 3.375 GM/50 ML BAG IV SCH (14:00)
[2018-10-31] MEDS: ZOSYN/NS 2.25 GM/50ML 2.25 GM/50 ML BAG IV SCH ×2 (18:00→21:14)
[2018-10-31] MEDS: SENOKOT S PO SCH ×3 (20:26→22:34)
[2018-11-01] MEDS ORDERED: NON-FORMULARY (Risperidone [Risperdal] 0.5 MG) PO SCH (00:44)
[2018-11-01] MEDS: APRESOLINE IV PRN (00:44)
[2018-11-01] MEDS: IMDUR PO SCH ×2 (01:15→12:35)
[2018-11-01] MEDS: RisperDAL PO SCH ×3 (01:16→21:50)
[2018-11-01] MEDS: LONITEN PO SCH ×3 (01:16→21:50)
[2018-11-01] MEDS: LOPRESSOR PO SCH ×3 (01:16→21:51)
[2018-11-01] MEDS: APRESOLINE PO SCH ×4 (01:16→21:50)
[2018-11-01] MEDS: ZOSYN/NS 2.25 GM/50ML 2.25 GM/50 ML BAG IV SCH ×4 (01:19→21:50)
[2018-11-01] MEDS: HEPARIN SUB-Q SCH ×3 (05:30→21:51)
[2018-11-01] MEDS: SENOKOT S PO SCH ×2 (05:33→18:27)
[2018-11-01 06:28] LABS: Basophils % (Auto) 0.2 % (0.0-1.8); Eosinophils % (Auto) 0.6 % (0.0-4.3); Lymphocytes # (Auto) 0.4 K/mm3 (1.2-5.4); Lymphocytes % (Auto) 10.4 % (13.4-35.0); Mean Corpuscular HGB Conc 30 % (32-34); Mean Corpuscular Volume 83 fl (84-94); Monocytes # (Auto) 0.4 K/mm3 (0.0-0.8); Monocytes % (Auto) 10.6 % (0.0-7.3); Platelet Count 146 K/mm3 (140-440); Red Blood Count 4.28 M/mm3 (3.65-5.03)
[2018-11-01 06:49] LABS: Hematocrit 35.5 % (35.5-45.6); Hemoglobin 10.6 gm/dl (11.8-15.2); Red Cell Distribution Width 20.8 % (13.2-15.2)
[2018-11-01 06:59] LABS: Calcium 9.3 mg/dL (8.4-10.2)
[2018-11-01] MEDS: RENVELA PO SCH ×3 (08:21→17:13)
[2018-11-01] MEDS: CEPHULAC PO SCH ×2 (10:28→21:10)
--- NOTE | 2018-11-01 10:42 | Progress Note ---
Subjective Principal diagnosis: esrd Interval history: Patient was seen today for follow-up on multiple renal related issues Events of this hospitalization noted Patient denies having any chest pain pressure or shortness of breath Vitals labs intake output medications were reviewed Social history: Reviewed Allergies: Reviewed Family history: Reviewed Physical examination HEENT: Oral mucosa moist no pallor or icterus Neck: Supple no JVD Chest: Clear to auscultation anteriorly CVS: Regular rate and rhythm S1 and S2 heard Abdomen: Soft nontender no suprapubic masses no organomegaly appreciable Extremity: Dry skin less than 1+ peripheral edema Musculoskeletal: No joint effusion noted in knees and ankle Neurological: Alert awake Dermatology: No petechial rashes Psychiatry: No evidence of any agitation and aggression noted Assessment and plan End-stage renal disease: Patient will continue with hemodialysis, monitor dialysis related labs Continue with hemodialysis on Saturday schedule Hypokalemia patient dialysis potassium bath has been adjusted current potassium is around 3.7, Anemia in end-stage renal disease: Monitor hemoglobin and hematocrit, erythropoietin as needed hemoglobin is currently at 10.6 platelet count 1 46,000, Secondary hyperparathyroidism periodically check phosphorus and PTH level Hypertension and volume: , Adjust medications as needed, ultrafiltration as tolerated keep systolic blood pressure above 100 Malnutrition risk: High please consider high protein diet as well as nutrition follow-up, patient needs at least 1.5 g protein per KG body weight Chronically noncompliant patient underlying psychiatric issues Continue with supportive care Multiple other comorbidities including COPD CAD coronary artery bypass graft CVA diabetes atrial fibrillation anemia secondary hyperparathyroidism as well as schizophrenia Blood cultures have been negative here We'll continue to follow and make recommendation from renal standpoint Objective - Vital Signs Vital signs: Vital Signs - 12hr 10/31/18 10/31/18 11/01/18 23:45 23:56 03:40 Temperature 99.5 F 98.6 F Pulse Rate 130 H 127 H 106 H Respiratory 20 19 Rate Blood Pressure 187/81 Blood Pressure 197/113 [Right] O2 Sat by Pulse 96 100 Oximetry 11/01/18 11/01/18 11/01/18 08:10 08:15 08:30 Temperature Pulse Rate 82 95 H 96 H Respiratory Rate Blood Pressure 180/83 212/93 192/63 Blood Pressure [Right] O2 Sat by Pulse Oximetry 11/01/18 11/01/18 11/01/18 08:45 09:00 09:15 Temperature Pulse Rate 96 H 94 H 92 H Respiratory Rate Blood Pressure 199/96 175/24 180/99 Blood Pressure [Right] O2 Sat by Pulse Oximetry 11/01/18 11/01/18 11/01/18 09:30 09:45 10:00 Temperature Pulse Rate 107 H 99 H 94 H Respiratory Rate Blood Pressure 201/91 195/97 147/45 Blood Pressure [Right] O2 Sat by Pulse Oximetry 11/01/18 10:13 Temperature Pulse Rate 95 H Respiratory Rate Blood Pressure 198/98 Blood Pressure [Right] O2 Sat by Pulse Oximetry - Lab 11/01/18 05:18 11/01/18 05:18 Most recent lab results Calcium 9.3 mg/dL (8.4-10.2) 11/01/18 05:18 Medications & Allergies - Medications Allergies/Adverse Reactions: Allergies haloperidol [From Haldol] Adverse Reaction (Verified 03/13/18 12:10) Unknown haloperidol lactate [From Haldol] Adverse Reaction (Verified 03/13/18 12:10) Unknown Home Medications: Home Medications Medication Instructions Recorded Confirmed Last Taken Type Gabapentin [Neurontin] 100 mg PO QHS #60 capsule 10/02/17 10/29/18 01/19/18 19:00 Rx Acetaminophen [Acetaminophen TAB] 1,000 mg PO Q12H PRN 03/13/18 10/29/18 Unknown History Insulin Aspart [NovoLOG Flexpen] 0 units SUB-Q QWEEK 03/13/18 10/29/18 Unknown History risperiDONE [RisperDAL] 1 mg PO QAM 03/13/18 10/29/18 Unknown History Aspirin EC [Aspirin Enteric Coated 81 mg PO DAILY 03/18/18 10/29/18 Unknown Hist ory TAB] Docusate Sodium [Colace CAP] 100 mg PO BID 03/18/18 10/29/18 Unknown History Folic Acid [Folvite] 1 mg PO DAILY 03/18/18 10/29/18 Unknown History ISOSORBIDE MONOnitrate [Imdur ER] 30 mg PO DAILY 03/18/18 10/29/18 Unknown History Metoprolol [Lopressor TAB] 50 mg PO BID 03/18/18 10/29/18 Unknown History Minoxidil [Loniten] 2.5 mg PO BID 03/18/18 10/29/18 Unknown History Sevelamer Carbonate [Renvela] 800 mg PO TIDWM 03/18/18 10/29/18 Unknown History Famotidine [Pepcid] 20 mg PO DAILY #30 tablet 06/09/18 10/29/18 Unknown Rx Sertraline [Zoloft] 100 mg PO QDAY 08/26/18 10/29/18 Unknown History risperiDONE [Risperdal] 0.5 mg PO HS 08/26/18 10/29/18 Unknown History hydrALAZINE [Apresoline TAB] 25 mg PO Q8HR tablet 09/02/18 10/29/18 Unknown Rx Active Medications: Generic Name Dose Route Start Last Admin Trade Name Freq PRN Reason Stop Dose Admin Acetaminophen 650 mg 10/29/18 05:05 10/31/18 21:24 Tylenol PO 650 mg Q4H PRN Administration Pain MILD(1-3)/Fever >100.5/HILL Lipase/Protease/Amylase 1 each 10/29/18 10:[address] 10,500 Unit FEEDTUBE PRN PRN For Clogged Feeding Tube Aspirin 81 mg 11/01/18 10:00 Halfprin Ec PO DAILY [facility] Epoetin Solitario 10,000 unit 10/30/18 11:10 11/01/18 10:34 Procrit IV 10,000 unit UMA PRN Administration hemodialysis Famotidine 20 mg 11/01/18 10:00 Pepcid PO DAILY [facility] Folic Acid 1 mg 11/01/18 10:00 Folvite PO DAILY SANCHEZ Gabapentin 100 mg 11/01/18 22:00 Neurontin PO QHS [facility] Heparin Sodium (Porcine) 5,000 unit 10/29/18 06:00 11/01/18 05:30 Heparin SUB-Q 5,000 unit Q8HR SANCHEZ Administration Hydralazine HCl 20 mg 10/29/18 05:39 11/01/18 00:44 Apresoline IV 20 mg Q4H PRN Administration Blood Pressure Hydralazine HCl 50 mg 11/01/18 01:00 11/01/18 05:30 Apresoline PO 50 mg Q8HR SANCHEZ Administration Sodium Chloride 100 mls @ 999 mls/hr 10/30/18 11:10 Nacl 0.9% IV UMA PRN Hypotension Piperacillin Sod/Tazobactam Sod 2.25 gm in 50 mls @ 100 mls/hr 11/01/18 14:00 Zosyn/Ns 2.25 Gm/50ml IV Q8HR SANCHEZ Isosorbide Mononitrate 30 mg 11/01/18 00:43 11/01/18 01:15 Imdur PO 30 mg DAILY SANCHEZ Administration Lactulose 20 gm 10/29/18 10:00 11/01/18 10:28 Cephulac PO 11/03/18 09:59 Not Given BID SANCHEZ Metoprolol Tartrate 50 mg 11/01/18 01:00 11/01/18 01:16 Lopressor PO 50 mg BID SANCHEZ Administration Minoxidil 2.5 mg 11/01/18 01:00 11/01/18 01:16 Loniten PO 2.5 mg BID SANCHEZ Administration Ondansetron HCl 4 mg 10/29/18 05:05 Zofran IV Q8H PRN Nausea And Vomiting Risperidone 1 mg 11/01/18 10:00 Risperdal PO QAM SANCHEZ Risperidone 0.5 mg 11/01/18 00:45 11/01/18 01:16 Risperdal PO 0.5 mg QHS SANCHEZ Administration Senna/Docusate Sodium 2 tab 10/29/18 06:00 11/01/18 05:33 Senokot S PO Not Given Q12H SANCHEZ Sertraline HCl 100 mg 11/01/18 10:00 Zoloft PO QDAY ASNCHEZ Sevelamer Carbonate 800 mg 11/01/18 08:00 11/01/18 08:21 Renvela PO Not Given TIDWM SANCHEZ Simple Syrup 15 ml 10/29/18 10:27 Simple Syrup FEEDTUBE PRN PRN Hypoglycemia Simple Syrup 30 ml 10/29/18 10:27 Simple Syrup FEEDTUBE PRN PRN Hypoglycemia Sodium Bicarbonate 325 mg 10/29/18 10:27 Sodium Bicarbonate FEEDTUBE PRN PRN For Clogged Feeding Tube Sodium Chloride 10 ml 10/29/18 10:00 10/31/18 21:20 Sodium Chloride Flush Syringe 10 Ml IV 10 ml BID SANCHEZ Administration Sodium Chloride 10 ml 10/29/18 05:05 Sodium Chloride Flush Syringe 10 Ml IV PRN PRN LINE FLUSH
[2018-11-01] MEDS: PEPCID PO SCH (12:10)
[2018-11-01] MEDS: ZOLOFT PO SCH (12:11)
[2018-11-01] MEDS: HALFPRIN EC PO SCH (12:13)
[2018-11-01] MEDS: FOLVITE PO SCH (12:13)
[2018-11-01] MEDS: SODIUM CHLORIDE FLUSH SYRINGE 10 ML IV SCH ×2 (12:14→21:51)
[2018-11-01] MEDS: NEURONTIN PO SCH (21:51)
[2018-11-02] MEDS: HEPARIN SUB-Q SCH ×3 (05:23→22:34)
[2018-11-02] MEDS: APRESOLINE PO SCH ×3 (05:23→22:35)
[2018-11-02] MEDS: SENOKOT S PO SCH ×2 (05:23→17:38)
[2018-11-02] MEDS: ZOSYN/NS 2.25 GM/50ML 2.25 GM/50 ML BAG IV SCH ×3 (05:23→22:30)
[2018-11-02] MEDS: RENVELA PO SCH ×3 (08:36→17:38)
[2018-11-02] MEDS: CEPHULAC PO SCH ×2 (09:47→22:30)
[2018-11-02] MEDS: LOPRESSOR PO SCH ×3 (09:47→22:31)
[2018-11-02] MEDS: HALFPRIN EC PO SCH (09:47)
[2018-11-02] MEDS: FOLVITE PO SCH (09:47)
[2018-11-02] MEDS: RisperDAL PO SCH ×2 (09:48→22:30)
[2018-11-02] MEDS: LONITEN PO SCH ×2 (09:48→22:35)
[2018-11-02] MEDS: IMDUR PO SCH (09:48)
[2018-11-02] MEDS: ZOLOFT PO SCH (09:48)
[2018-11-02] MEDS: PEPCID PO SCH (09:48)
[2018-11-02] MEDS: SODIUM CHLORIDE FLUSH SYRINGE 10 ML IV SCH ×2 (09:49→22:37)
--- NOTE | 2018-11-02 12:01 | Progress Note ---
Assessment and Plan Assessment and plan: Sepsis, not present on admission -Probably secondary to right middle lobe pneumonia -On IV antibiotic with Zosyn -Blood cultures negative so far Acute metabolic encephalopathy -Improved to baseline -Head CT scan negative for acute findings Acute on chronic hyponatremia -Improved, will monitor ESRD on hemodialysis -Nephrology following Anasarca -Improved with dialysis Hypokalemia -Resolved Chronic troponin level elevation -Stable, no acute chest pain Hypertension -Controlled on current antihypertensives, adjust as needed Fecal impaction -Improved on laxatives CAD -Stable History of CVA -Continue supportive care Atrial fibrillation -Heart rate fairly controlled -Metoprolol dose increased, adjust as needed Dementia, stable DM2 -controlled COPD -No acute exacerbation -On PRN duoneb Chronic systolic HF with EF of 40-45% -No acute exacerbation Disposition: For discharge when medically stable History Interval history: patient has no new complaints. He denies chest pain or shortness of breath. His nurse reports improved oral intake. Hospitalist Physical - Constitutional Vitals: Temp Pulse Resp BP Pulse Ox 98.4 F 113 H 19 152/74 98 11/01/18 19:05 11/02/18 10:00 11/02/18 10:00 11/02/18 09:48 11/02/18 10:00 General appearance: Present: no acute distress, obese - EENT Eyes: Present: PERRL, EOM intact ENT: hearing intact, clear oral mucosa - Neck Neck: Present: supple - Respiratory Respiratory effort: normal Respiratory: bilateral: CTA - Cardiovascular Rhythm: regular (with tachycardia) Heart Sounds: Present: S1 & S2 - Extremities Extremities: No edema - Abdominal General gastrointestinal: soft, non-tender, non-distended, normal bowel sounds - Neurologic Neurologic: moves all extremities Results - Labs CBC & Chem 7: 11/01/18 05:18 11/01/18 05:18 Labs: Laboratory Last Values WBC 4.2 K/mm3 (4.5-11.0) L 11/01/18 05:18 RBC 4.28 M/mm3 (3.65-5.03) 11/01/18 05:18 Hgb 10.6 gm/dl (11.8-15.2) L 11/01/18 05:18 Hct 35.5 % (35.5-45.6) 11/01/18 05:18 MCV 83 fl (84-94) L 11/01/18 05:18 MCH 25 pg (28-32) L 11/01/18 05:18 MCHC 30 % (32-34) L 11/01/18 05:18 RDW 20.8 % (13.2-15.2) H 11/01/18 05:18 Plt Count 146 K/mm3 (140-440) 11/01/18 05:18 Lymph % (Auto) 10.4 % (13.4-35.0) L 11/01/18 05:18 Kings % (Auto) 10.6 % (0.0-7.3) H 11/01/18 05:18 Eos % (Auto) 0.6 % (0.0-4.3) 11/01/18 05:18 Baso % (Auto) 0.2 % (0.0-1.8) 11/01/18 05:18 Lymph # 0.4 K/mm3 (1.2-5.4) L 11/01/18 05:18 Kings # 0.4 K/mm3 (0.0-0.8) 11/01/18 05:18 Eos # 0.0 K/mm3 (0.0-0.4) 11/01/18 05:18 Baso # 0.0 K/mm3 (0.0-0.1) 11/01/18 05:18 Add Manual Diff Complete 10/30/18 04:42 Total Counted 100 10/30/18 04:42 Seg Neutrophils % 78.2 % (40.0-70.0) H 11/01/18 05:18 Seg Neuts % (Manual) 89.0 % (40.0-70.0) H 10/30/18 04:42 Band Neutrophils % 5.0 % 10/30/18 04:42 Lymphocytes % (Manual) 5.0 % (13.4-35.0) L 10/30/18 04:42 Reactive Lymphs % (Man) 0 % 10/30/18 04:42 Monocytes % (Manual) 1.0 % (0.0-7.3) 10/30/18 04:42 Eosinophils % (Manual) 0 % (0.0-4.3) 10/30/18 04:42 Basophils % (Manual) 0 % (0.0-1.8) 10/30/18 04:42 Metamyelocytes % 0 % 10/30/18 04:42 Myelocytes % 0 % 10/30/18 04:42 Promyelocytes % 0 % 10/30/18 04:42 Blast Cells % 0 % 10/30/18 04:42 Nucleated RBC % Not Reportable 10/30/18 04:42 Seg Neutrophils # 3.3 K/mm3 (1.8-7.7) 11/01/18 05:18 Seg Neutrophils # Man 4.1 K/mm3 (1.8-7.7) 10/30/18 04:42 Band Neutrophils # 0.2 K/mm3 10/30/18 04:42 Lymphocytes # (Manual) 0.2 K/mm3 (1.2-5.4) L 10/30/18 04:42 Abs React Lymphs (Man) 0.0 K/mm3 10/30/18 04:42 Monocytes # (Manual) 0.0 K/mm3 (0.0-0.8) 10/30/18 04:42 Eosinophils # (Manual) 0.0 K/mm3 (0.0-0.4) 10/30/18 04:42 Basophils # (Manual) 0.0 K/mm3 (0.0-0.1) 10/30/18 04:42 Metamyelocytes # 0.0 K/mm3 10/30/18 04:42 Myelocytes # 0.0 K/mm3 10/30/18 04:42 Promyelocytes # 0.0 K/mm3 10/30/18 04:42 Blast Cells # 0.0 K/mm3 10/30/18 04:42 WBC Morphology Not Reportable 10/30/18 04:42 Hypersegmented Neuts Not Reportable 10/30/18 04:42 Hyposegmented Neuts Not Reportable 10/30/18 04:42 Hypogranular Neuts Not Reportable 10/30/18 04:42 Smudge Cells Not Reportable 10/30/18 04:42 Toxic Granulation Not Reportable 10/30/18 04:42 Toxic Vacuolation Not Reportable 10/30/18 04:42 Dohle Bodies Not Reportable 10/30/18 04:42 Pelger-Huet Anomaly Not Reportable 10/30/18 04:42 Tramaine Rods Not Reportable 10/30/18 04:42 Platelet Estimate Appears normal 10/30/18 04:42 Clumped Platelets Not Reportable 10/30/18 04:42 Plt Clumps, EDTA Not Reportable 10/30/18 04:42 Large Platelets Not Reportable 10/30/18 04:42 Giant Platelets Not Reportable 10/30/18 04:42 Platelet Satelliting Not Reportable 10/30/18 04:42 Plt Morphology Comment Not Reportable 10/30/18 04:42 RBC Morphology Not Reportable 10/30/18 04:42 Dimorphic RBCs Not Reportable 10/30/18 04:42 Polychromasia Not Reportable 10/30/18 04:42 Hypochromasia 1+ 10/30/18 04:42 Poikilocytosis Not Reportable 10/30/18 04:42 Anisocytosis 1+ 10/30/18 04:42 Microcytosis Not Reportable 10/30/18 04:42 Macrocytosis Not Reportable 10/30/18 04:42 Spherocytes Not Reportable 10/30/18 04:42 Pappenheimer Bodies Not Reportable 10/30/18 04:42 Sickle Cells Not Reportable 10/30/18 04:42 Target Cells Few 10/30/18 04:42 Tear Drop Cells Not Reportable 10/30/18 04:42 Ovalocytes Not Reportable 10/30/18 04:42 Helmet Cells Not Reportable 10/30/18 04:42 [place] Bodies Not Reportable 10/30/18 04:42 [place] Rings Not Reportable 10/30/18 04:42 [place] Cells Not Reportable 10/30/18 04:42 Bite Cells Not Reportable 10/30/18 04:42 Crenated Cell Not Reportable 10/30/18 04:42 Elliptocytes Not Reportable 10/30/18 04:42 Acanthocytes (Spur) Not Reportable 10/30/18 04:42 Rouleaux Not Reportable 10/30/18 04:42 Hemoglobin C Crystals Not Reportable 10/30/18 04:42 Schistocytes Not Reportable 10/30/18 04:42 Malaria parasites Not Reportable 10/30/18 04:42 Jose Juan Bodies Not Reportable 10/30/18 04:42 Hem Pathologist Commnt No 10/30/18 04:42 PT 15.9 Sec. (12.2-14.9) H 04/10/19 01:22 INR 1.19 (0.87-1.13) H 10/29/18 01:22 APTT 34.9 Sec. (24.2-36.6) 10/29/18 01:22 POC ABG pH 7.345 (7.35-7.45) L 10/29/18 00:56 POC ABG pCO2 47.7 (35-45) H 10/29/18 00:56 POC ABG pO2 81 (80-105) 10/29/18 00:56 POC ABG HCO3 26.0 (22-26 mml/L) 10/29/18 00:56 POC ABG Total CO2 27 (23-27mmol/L) 10/29/18 00:56 POC ABG O2 Sat 95 10/29/18 00:56 POC ABG Base Excess 0 ((-2) - (+3)mmol/L) 10/29/18 00:56 FiO2 32 % 10/29/18 00:56 Sodium 135 mmol/L (137-145) L 11/01/18 05:18 Potassium 3.7 mmol/L (3.6-5.0) D 11/01/18 05:18 Chloride 96.7 mmol/L (98-107) L 11/01/18 05:18 Carbon Dioxide 22 mmol/L (22-30) 11/01/18 05:18 Anion Gap 20 mmol/L 11/01/18 05:18 BUN 35 mg/dL (9-20) H 11/01/18 05:18 Creatinine 4.3 mg/dL (0.8-1.5) H 11/01/18 05:18 Estimated GFR 17 ml/min 11/01/18 05:18 BUN/Creatinine Ratio 8 % 11/01/18 05:18 Glucose 76 mg/dL (75-100) 11/01/18 05:18 POC Glucose 144 (70-105) H 10/31/18 08:17 Calcium 9.3 mg/dL (8.4-10.2) 11/01/18 05:18 Total Bilirubin 0.40 mg/dL (0.1-1.2) 10/29/18 00:31 AST 23 units/L (5-40) 10/29/18 00:31 ALT 8 units/L (7-56) 10/29/18 00:31 Alkaline Phosphatase 97 units/L (35-129) 10/29/18 00:31 Total Creatine Kinase 27 units/L (55-170) L 10/29/18 01:22 CK-MB (CK-2) 2.8 ng/mL (0.0-4.0) 10/29/18 01:22 CK-MB (CK-2) Rel Index 10.3 (0-4) H 10/29/18 01:22 Troponin T 0.117 ng/mL (0.00-0.029) H* 10/29/18 09:16 Total Protein 7.2 g/dL (6.3-8.2) 10/29/18 00:31 Albumin 2.6 g/dL (3.9-5) L 10/29/18 00:31 Albumin/Globulin Ratio 0.6 % 10/29/18 00:31 Triglycerides 51 mg/dL (2-149) 10/29/18 01:22 Cholesterol 117 mg/dL (50-199) 10/29/18 01:22 LDL Cholesterol Direct 49 mg/dL (50-130) L 10/29/18 01:22 HDL Cholesterol 62 mg/dL (40-59) H 10/29/18 01:22 Cholesterol/HDL Ratio 1.88 % 10/29/18 01:22 Lipase 7 units/L (13-60) L 10/29/18 01:22 Active Medications - Current Medications Current Medications: Generic Name Dose Route Start Last Admin Trade Name Freq PRN Reason Stop Dose Admin Acetaminophen 650 mg 10/29/18 05:05 10/31/18 21:24 Tylenol PO 650 mg Q4H PRN Administration Pain MILD(1-3)/Fever >100.5/HILL Lipase/Protease/Amylase 1 each 10/29/18 10:[address] 10,500 Unit FEEDTUBE PRN PRN For Clogged Feeding Tube Aspirin 81 mg 11/01/18 10:00 11/02/18 09:47 Halfprin Ec PO 81 mg DAILY SANCHEZ Administration Epoetin Solitario 10,000 unit 10/30/18 11:10 11/01/18 10:34 Procrit IV 10,000 unit UMA PRN Administration hemodialysis Famotidine 20 mg 11/01/18 10:00 11/02/18 09:48 Pepcid PO 20 mg DAILY SANCHEZ Administration Folic Acid 1 mg 11/01/18 10:00 11/02/18 09:47 Folvite PO 1 mg DAILY SANCHEZ Administration Gabapentin 100 mg 11/01/18 22:00 11/01/18 21:51 Neurontin PO 100 mg QHS SANCHEZ Administration Heparin Sodium (Porcine) 5,000 unit 10/29/18 06:00 11/02/18 05:23 Heparin SUB-Q 5,000 unit Q8HR SANCHEZ Administration Hydralazine HCl 20 mg 10/29/18 05:39 11/01/18 00:44 Apresoline IV 20 mg Q4H PRN Administration Blood Pressure Hydralazine HCl 50 mg 11/01/18 01:00 11/02/18 05:23 Apresoline PO 50 mg Q8HR SANCHEZ Administration Sodium Chloride 100 mls @ 999 mls/hr 10/30/18 11:10 Nacl 0.9% IV UMA PRN Hypotension Piperacillin Sod/Tazobactam Sod 2.25 gm in 50 mls @ 100 mls/hr 11/01/18 14:00 11/02/18 05:23 Zosyn/Ns 2.25 Gm/50ml IV 100 mls/hr Q8HR SANCHEZ Administration Isosorbide Mononitrate 30 mg 11/01/18 00:43 11/02/18 09:48 Imdur PO 30 mg DAILY SANCHEZ Administration Lactulose 20 gm 10/29/18 10:00 11/02/18 09:47 Cephulac PO 11/03/18 09:59 20 gm BID SANCHEZ Administration Metoprolol Tartrate 50 mg 11/01/18 01:00 11/02/18 09:47 Lopressor PO 50 mg BID SANCHEZ Administration Minoxidil 2.5 mg 11/01/18 01:00 11/02/18 09:48 Loniten PO 2.5 mg BID SANCHEZ Administration Ondansetron HCl 4 mg 10/29/18 05:05 Zofran IV Q8H PRN Nausea And Vomiting Risperidone 1 mg 11/01/18 10:00 11/02/18 09:48 Risperdal PO 1 mg QAM SANCHEZ Administration Risperidone 0.5 mg 11/01/18 00:45 11/01/18 21:50 Risperdal PO 0.5 mg QHS SANCHEZ Administration Senna/Docusate Sodium 2 tab 10/29/18 06:00 11/02/18 05:23 Senokot S PO 2 tab Q12H SANCHEZ Administration Sertraline HCl 100 mg 11/01/18 10:00 11/02/18 09:48 Zoloft PO 100 mg QDAY SANCHEZ Administration Sevelamer Carbonate 800 mg 11/01/18 08:00 11/02/18 08:36 Renvela PO 800 mg TIDWM SANCHEZ Administration Simple Syrup 15 ml 10/29/18 10:27 Simple Syrup FEEDTUBE PRN PRN Hypoglycemia Simple Syrup 30 ml 10/29/18 10:27 Simple Syrup FEEDTUBE PRN PRN Hypoglycemia Sodium Bicarbonate 325 mg 10/29/18 10:27 11/01/18 12:10 Sodium Bicarbonate FEEDTUBE 325 mg PRN PRN Administration For Clogged Feeding Tube Sodium Chloride 10 ml 10/29/18 10:00 11/02/18 09:49 Sodium Chloride Flush Syringe 10 Ml IV 10 ml BID SANCHEZ Administration Sodium Chloride 10 ml 10/29/18 05:05 Sodium Chloride Flush Syringe 10 Ml IV PRN PRN LINE FLUSH Nutrition/Malnutrition Assess - Dietary Evaluation Nutrition/Malnutrition Findings: Nutrition Notes Start: 10/29/18 10:19 Freq: Status: Active Protocol: Document 10/31/18 16:41 RM (Rec: 10/31/18 16:51 RM [id number]) Nutrition Notes Initial or Follow up Reassessment Current Diagnosis CKD (stage V CKD),COPD, Coronary Artery Disease, Diabetes,Hypertension,Stroke Current Diet Nepro at 50 ml/hr Labs/Tests Reviewed Pertinent Medications Reviewed Height 5 ft 11 in Weight 101.8 kg Mcdavid Body Weight (kg) 78.18 BMI 31.3 Weight change and time frame [facility] Subjective/Other Information Observed Nepro infusing at 50 ml/hr. Per nurse pt is tolerating TF. Burn Absent Trauma Absent #1 Nutrition Diagnosis Inadequate oral intake Diagnosis Progress(for reassessment Continues documentation) Is patient on ventilator? No Is Patient Ambulatory and/or Out of Bed No REE-([place]-confined to bed) 2201.076 Kcal/Kg value to use for calculation 17 Approximate Energy Requirements Using 1731 kcal/Kg Calculation Used for Recommendations Kcal/kg Additional Notes Protein Needs: 108-135g (1.2-1 .5g/kg adjBW 90 kg) Fluid Needs: 1 ml/kcal Nutrition Intervention Nutrition Support: Nepro at 40 ml/hr. Water flush of 150 ml q 4 hrs. Kcal 1,728 Protein (gm) 78 Fat (gm) 698 Goal #1 TF to continue to meet protein and kcal needs Goal #2 TF tolerance Follow-Up By: 11/07/18 Additional Comments Follow for TF tolerance
--- NOTE | 2018-11-02 17:28 | Progress Note ---
Subjective Principal diagnosis: esrd Interval history: Patient was seen today for follow-up on multiple renal related issues Events of this hospitalization noted Vitals labs intake output medications were reviewed Social history: Reviewed Allergies: Reviewed Family history: Reviewed Physical examination HEENT: Oral mucosa moist no pallor or icterus Neck: Supple no JVD Chest: Clear to auscultation anteriorly CVS: Regular rate and rhythm S1 and S2 heard Abdomen: Soft nontender no suprapubic masses no organomegaly appreciable Extremity: Dry skin less than 1+ peripheral edema Musculoskeletal: No joint effusion noted in knees and ankle Neurological: Alert awake Dermatology: No petechial rashes Psychiatry: No evidence of any agitation and aggression noted Assessment and plan End-stage renal disease: Patient will continue with hemodialysis, monitor dialysis related labs Continue with hemodialysis on Saturday schedule Blood pressure appears to be stable, no new labs today Hypokalemia patient dialysis potassium bath has been adjusted current potassium is around 3.7, Anemia in end-stage renal disease: Monitor hemoglobin and hematocrit, erythropoietin as needed hemoglobin is currently at 10.6 platelet count 1 46,000, Secondary hyperparathyroidism periodically check phosphorus and PTH level Hypertension and volume: , Adjust medications as needed, ultrafiltration as tolerated keep systolic blood pressure above 100 Malnutrition risk: High please consider high protein diet as well as nutrition follow-up, patient needs at least 1.5 g protein per KG body weight Chronically noncompliant patient underlying psychiatric issues Continue with supportive care Multiple other comorbidities including COPD CAD coronary artery bypass graft CVA diabetes atrial fibrillation anemia secondary hyperparathyroidism as well as schizophrenia Blood cultures have been negative here We'll continue to follow and make recommendation from renal standpoint Objective - Vital Signs Vital signs: Vital Signs - 12hr 11/02/18 11/02/18 11/02/18 09:47 09:48 10:00 Pulse Rate 117 H 117 H 114 H Pulse Rate [ 113 H Apical] Pulse Rate [ 113 H Left Radial] Pulse Rate [ 113 H Right Radial] Respiratory 19 Rate Blood Pressure 152/74 152/74 O2 Sat by Pulse 98 Oximetry 11/02/18 11/02/18 12:41 14:30 Pulse Rate 88 81 Pulse Rate [ Apical] Pulse Rate [ Left Radial] Pulse Rate [ Right Radial] Respiratory Rate Blood Pressure 141/66 133/62 O2 Sat by Pulse Oximetry - Lab 11/01/18 05:18 11/01/18 05:18 Most recent lab results Calcium 9.3 mg/dL (8.4-10.2) 11/01/18 05:18 Medications & Allergies - Medications Allergies/Adverse Reactions: Allergies haloperidol [From Haldol] Adverse Reaction (Verified 03/13/18 12:10) Unknown haloperidol lactate [From Haldol] Adverse Reaction (Verified 03/13/18 12:10) Unknown Home Medications: Home Medications Medication Instructions Recorded Confirmed Last Taken Type Gabapentin [Neurontin] 100 mg PO QHS #60 capsule 10/02/17 10/29/18 01/19/18 19:00 Rx Acetaminophen [Acetaminophen TAB] 1,000 mg PO Q12H PRN 03/13/18 10/29/18 Unknown History Insulin Aspart [NovoLOG Flexpen] 0 units SUB-Q QWEEK 03/13/18 10/29/18 Unknown History risperiDONE [RisperDAL] 1 mg PO QAM 03/13/18 10/29/18 Unknown History Aspirin EC [Aspirin Enteric Coated 81 mg PO DAILY 03/18/18 10/29/18 Unknown History TAB] Docusate Sodium [Colace CAP] 100 mg PO BID 03/18/18 10/29/18 Unknown History Folic Acid [Folvite] 1 mg PO DAILY 03/18/18 10/29/18 Unknown History ISOSORBIDE MONOnitrate [Imdur ER] 30 mg PO DAILY 03/18/18 10/29/18 Unknown History Metoprolol [Lopressor TAB] 50 mg PO BID 03/18/18 10/29/18 Unknown History Minoxidil [Loniten] 2.5 mg PO BID 03/18/18 10/29/18 Unknown History Sevelamer Carbonate [Renvela] 800 mg PO TIDWM 03/18/18 10/29/18 Unknown History Famotidine [Pepcid] 20 mg PO DAILY #30 tablet 06/09/18 10/29/18 Unknown Rx Sertraline [Zoloft] 100 mg PO QDAY 08/26/18 10/29/18 Unknown History risperiDONE [Risperdal] 0.5 mg PO HS 08/26/18 10/29/18 Unknown History hydrALAZINE [Apresoline TAB] 25 mg PO Q8HR tablet 09/02/18 10/29/18 Unknown Rx Active Medications: Generic Name Dose Route Start Last Admin Trade Name Freq PRN Reason Stop Dose Admin Acetaminophen 650 mg 10/29/18 05:05 10/31/18 21:24 Tylenol PO 650 mg Q4H PRN Administration Pain MILD(1-3)/Fever >100.5/HILL Lipase/Protease/Amylase 1 each 10/29/18 10:27 Pancreaze 10,500 Unit FEEDTUBE PRN PRN For Clogged Feeding Tube Aspirin 81 mg 11/01/18 10:00 11/02/18 09:47 Halfprin Ec PO 81 mg DAILY SANCHEZ Administration Epoetin Solitario 10,000 unit 10/30/18 11:10 11/01/18 10:34 Procrit IV 10,000 unit UMA PRN Administration hemodialysis Famotidine 20 mg 11/01/18 10:00 11/02/18 09:48 Pepcid PO 20 mg DAILY SANCHEZ Administration Folic Acid 1 mg 11/01/18 10:00 11/02/18 09:47 Folvite PO 1 mg DAILY SANCHEZ Administration Gabapentin 100 mg 11/01/18 22:00 11/01/18 21:51 Neurontin PO 100 mg QHS SANCHEZ Administration Heparin Sodium (Porcine) 5,000 unit 10/29/18 06:00 11/02/18 14:31 Heparin SUB-Q 5,000 unit Q8HR SANCHEZ Administration Hydralazine HCl 20 mg 10/29/18 05:39 11/01/18 00:44 Apresoline IV 20 mg Q4H PRN Administration Blood Pressure Hydralazine HCl 50 mg 11/01/18 01:00 11/02/18 14:30 Apresoline PO 50 mg Q8HR SANCHEZ Administration Sodium Chloride 100 mls @ 999 mls/hr 10/30/18 11:10 Nacl 0.9% IV UMA PRN Hypotension Piperacillin Sod/Tazobactam Sod 2.25 gm in 50 mls @ 100 mls/hr 11/01/18 14:00 11/02/18 14:30 Zosyn/Ns 2.25 Gm/50ml IV 100 mls/hr Q8HR SANCHEZ Administration Isosorbide Mononitrate 30 mg 11/01/18 00:43 11/02/18 09:48 Imdur PO 30 mg DAILY SANCHEZ Administration Lactulose 20 gm 10/29/18 10:00 11/02/18 09:47 Cephulac PO 11/03/18 09:59 20 gm BID SANCHEZ Administration Metoprolol Tartrate 75 mg 11/02/18 12:30 11/02/18 12:41 Lopressor PO 75 mg BID SANCHEZ Administration Minoxidil 2.5 mg 11/01/18 01:00 11/02/18 09:48 Loniten PO 2.5 mg BID SANCHEZ Administration Ondansetron HCl 4 mg 10/29/18 05:05 Zofran IV Q8H PRN Nausea And Vomiting Risperidone 1 mg 11/01/18 10:00 11/02/18 09:48 Risperdal PO 1 mg QAM SANCHEZ Administration Risperidone 0.5 mg 11/01/18 00:45 11/01/18 21:50 Risperdal PO 0.5 mg QHS SANCHEZ Administration Senna/Docusate Sodium 2 tab 10/29/18 06:00 11/02/18 05:23 Senokot S PO 2 tab Q12H SANCHEZ Administration Sertraline HCl 100 mg 11/01/18 10:00 11/02/18 09:48 Zoloft PO 100 mg QDAY SANCHEZ Administration Sevelamer Carbonate 800 mg 11/01/18 08:00 11/02/18 12:41 Renvela PO 800 mg TIDWM SANCHEZ Administration Simple Syrup 15 ml 10/29/18 10:27 Simple Syrup FEEDTUBE PRN PRN Hypoglycemia Simple Syrup 30 ml 10/29/18 10:27 Simple Syrup FEEDTUBE PRN PRN Hypoglycemia Sodium Bicarbonate 325 mg 10/29/18 10:27 11/01/18 12:10 Sodium Bicarbonate FEEDTUBE 325 mg PRN PRN Administration For Clogged Feeding Tube Sodium Chloride 10 ml 10/29/18 10:00 11/02/18 09:49 Sodium Chloride Flush Syringe 10 Ml IV 10 ml BID SANCHEZ Administration Sodium Chloride 10 ml 10/29/18 05:05 Sodium Chloride Flush Syringe 10 Ml IV PRN PRN LINE FLUSH
[2018-11-02] MEDS: NEURONTIN PO SCH (22:31)
[2018-11-03 05:55] LABS: Calcium 8.8 mg/dL (8.4-10.2)
[2018-11-03 06:00] LABS: Hematocrit 31.7 % (35.5-45.6); Hemoglobin 9.8 gm/dl (11.8-15.2); Mean Corpuscular HGB Conc 31 % (32-34); Mean Corpuscular Volume 80 fl (84-94); Platelet Count 210 K/mm3 (140-440); Red Blood Count 3.96 M/mm3 (3.65-5.03)
[2018-11-03 06:02] LABS: Red Cell Distribution Width 20.7 % (13.2-15.2)
[2018-11-03] MEDS: APRESOLINE PO SCH ×3 (06:06→21:20)
[2018-11-03] MEDS: ZOSYN/NS 2.25 GM/50ML 2.25 GM/50 ML BAG IV SCH ×3 (06:06→21:20)
[2018-11-03] MEDS: HEPARIN SUB-Q SCH ×3 (06:07→21:18)
[2018-11-03] MEDS: SENOKOT S PO SCH ×2 (06:08→17:12)
[2018-11-03] MEDS: RENVELA PO SCH ×3 (08:52→17:12)
[2018-11-03] MEDS: LONITEN PO SCH ×2 (10:11→21:19)
[2018-11-03] MEDS: ZOLOFT PO SCH (10:11)
[2018-11-03] MEDS: RisperDAL PO SCH ×2 (10:11→21:19)
[2018-11-03] MEDS: LOPRESSOR PO SCH ×2 (10:11→21:20)
[2018-11-03] MEDS: HALFPRIN EC PO SCH (10:12)
[2018-11-03] MEDS: IMDUR PO SCH (10:12)
[2018-11-03] MEDS: FOLVITE PO SCH (10:12)
[2018-11-03] MEDS: PEPCID PO SCH (10:12)
[2018-11-03] MEDS: SODIUM CHLORIDE FLUSH SYRINGE 10 ML IV SCH ×2 (10:13→21:21)
--- NOTE | 2018-11-03 10:13 | Progress Note ---
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 Objective - Vital Signs Vital signs: Vital Signs - 12hr 11/02/18 11/02/18 11/03/18 22:31 22:35 00:37 Temperature 98.4 F Pulse Rate 85 85 83 Respiratory 20 Rate Blood Pressure 128/64 128/64 147/72 O2 Sat by Pulse 99 Oximetry 11/03/18 11/03/18 11/03/18 05:10 05:24 06:06 Temperature 97.2 F L Pulse Rate 84 58 L 58 L Respiratory 18 Rate Blood Pressure 138/67 169/90 169/90 O2 Sat by Pulse 94 96 Oximetry 11/03/18 10:11 Temperature Pulse Rate 98 H Respiratory Rate Blood Pressure 120/61 O2 Sat by Pulse Oximetry - General Appearance General appearance: well-developed, well-nourished EENT: ATNC Respiratory: Present: Clear to Ascultation Cardiology: regular, S1S2 Gastrointestinal: normal, no tenderness, no distended Integumentary: no rash Musculoskeletal: other (2+ edema; L arm swelling) Psychiatric: cooperative - Lab 11/03/18 04:32 11/03/18 04:32 Most recent lab results Calcium 8.8 mg/dL (8.4-10.2) 11/03/18 04:32 Magnesium 2.00 mg/dL (1.7-2.3) 11/03/18 04:32 Medications & Allergies - Medications Allergies/Adverse Reactions: Allergies haloperidol [From Haldol] Adverse Reaction (Verified 03/13/18 12:10) Unknown haloperidol lactate [From Haldol] Adverse Reaction (Verified 03/13/18 12:10) Unknown Home Medications: Home Medications Medication Instructions Recorded Confirmed Last Taken Type Gabapentin [Neurontin] 100 mg PO QHS #60 capsule 10/02/17 10/29/18 01/19/18 19:0 0 Rx Acetaminophen [Acetaminophen TAB] 1,000 mg PO Q12H PRN 03/13/18 10/29/18 Unknown History Insulin Aspart [NovoLOG Flexpen] 0 units SUB-Q QWEEK 03/13/18 10/29/18 Unknown History risperiDONE [RisperDAL] 1 mg PO QAM 03/13/18 10/29/18 Unknown History Aspirin EC [Aspirin Enteric Coated 81 mg PO DAILY 03/18/18 10/29/18 Unknown History TAB] Docusate Sodium [Colace CAP] 100 mg PO BID 03/18/18 10/29/18 Unknown History Folic Acid [Folvite] 1 mg PO DAILY 03/18/18 10/29/18 Unknown History ISOSORBIDE MONOnitrate [Imdur ER] 30 mg PO DAILY 03/18/18 10/29/18 Unknown History Metoprolol [Lopressor TAB] 50 mg PO BID 03/18/18 10/29/18 Unknown History Minoxidil [Loniten] 2.5 mg PO BID 03/18/18 10/29/18 Unknown History Sevelamer Carbonate [Renvela] 800 mg PO TIDWM 03/18/18 10/29/18 Unknown History Famotidine [Pepcid] 20 mg PO DAILY #30 tablet 06/09/18 10/29/18 Unknown Rx Sertraline [Zoloft] 100 mg PO QDAY 08/26/18 10/29/18 Unknown History risperiDONE [Risperdal] 0.5 mg PO HS 08/26/18 10/29/18 Unknown History hydrALAZINE [Apresoline TAB] 25 mg PO Q8HR tablet 09/02/18 10/29/18 Unknown Rx Active Medications: Generic Name Dose Route Start Last Admin Trade Name Freq PRN Reason Stop Dose Admin Acetaminophen 650 mg 10/29/18 05:05 10/31/18 21:24 Tylenol PO 650 mg Q4H PRN Administration Pain MILD(1-3)/Fever >100.5/HILL Lipase/Protease/Amylase 1 each 10/29/18 10:27 Pancrejewel Barrientos 10,500 Unit FEEDTUBE PRN PRN For Clogged Feeding Tube Aspirin 81 mg 11/01/18 10:00 11/02/18 09:47 Halfprin Ec PO 81 mg DAILY SANCHEZ Administration Epoetin Solitario 10,000 unit 10/30/18 11:10 11/01/18 10:34 Procrit IV 10,000 unit UMA PRN Administration hemodialysis Famotidine 20 mg 11/01/18 10:00 11/02/18 09:48 Pepcid PO 20 mg DAILY SANCHEZ Administration Folic Acid 1 mg 11/01/18 10:00 11/02/18 09:47 Folvite PO 1 mg DAILY SANCHEZ Administration Gabapentin 100 mg 11/01/18 22:00 11/02/18 22:31 Neurontin PO 100 mg QHS SANCHEZ Administration Heparin Sodium (Porcine) 5,000 unit 10/29/18 06:00 11/03/18 06:07 Heparin SUB-Q 5,000 unit Q8HR SANCHEZ Administration Hydralazine HCl 20 mg 10/29/18 05:39 11/01/18 00:44 Apresoline IV 20 mg Q4H PRN Administration Blood Pressure Hydralazine HCl 50 mg 11/01/18 01:00 11/03/18 06:06 Apresoline PO 50 mg Q8HR SANCHEZ Administration Sodium Chloride 100 mls @ 999 mls/hr 10/30/18 11:10 Nacl 0.9% IV UMA PRN Hypotension Piperacillin Sod/Tazobactam Sod 2.25 gm in 50 mls @ 100 mls/hr 11/01/18 14:00 11/03/18 06:06 Zosyn/Ns 2.25 Gm/50ml IV 100 mls/hr Q8HR SANCHEZ Administration Isosorbide Mononitrate 30 mg 11/01/18 00:43 11/02/18 09:48 Imdur PO 30 mg DAILY SANCHEZ Administration Metoprolol Tartrate 75 mg 11/02/18 12:30 11/03/18 10:11 Lopressor PO 75 mg BID SANCHEZ Administration Minoxidil 2.5 mg 11/01/18 01:00 11/02/18 22:35 Loniten PO 2.5 mg BID SANCHEZ Administration Ondansetron HCl 4 mg 10/29/18 05:05 Zofran IV Q8H PRN Nausea And Vomiting Risperidone 1 mg 11/01/18 10:00 11/03/18 10:11 Risperdal PO 1 mg QAM SANCHEZ Administration Risperidone 0.5 mg 11/01/18 00:45 11/02/18 22:30 Risperdal PO 0.5 mg QHS SANCHEZ Administration Senna/Docusate Sodium 2 tab 10/29/18 06:00 11/03/18 06:08 Senokot S PO 2 tab Q12H SANCHEZ Administration Sertraline HCl 100 mg 11/01/18 10:00 11/03/18 10:11 Zoloft PO 100 mg QDAY SANCHEZ Administration Sevelamer Carbonate 800 mg 11/01/18 08:00 11/03/18 08:52 Renvela PO 800 mg TIDWM SANCHEZ Administration Simple Syrup 15 ml 10/29/18 10:27 Simple Syrup FEEDTUBE PRN PRN Hypoglycemia Simple Syrup 30 ml 10/29/18 10:27 Simple Syrup FEEDTUBE PRN PRN Hypoglycemia Sodium Bicarbonate 325 mg 10/29/18 10:27 11/01/18 12:10 Sodium Bicarbonate FEEDTUBE 325 mg PRN PRN Administration For Clogged Feeding Tube Sodium Chloride 10 ml 10/29/18 10:00 11/02/18 22:37 Sodium Chloride Flush Syringe 10 Ml IV 10 ml BID SANCHEZ Administration Sodium Chloride 10 ml 10/29/18 05:05 Sodium Chloride Flush Syringe 10 Ml IV PRN PRN LINE FLUSH
--- NOTE | 2018-11-03 12:19 | Progress Note ---
Assessment and Plan - Patient Problems (1) HTN (hypertension) Current Visit: Yes Status: Acute Plan to address problem: Fair well-controlled on current doses metoprolol blood pressure 120/61. (2) ESRD (end stage renal disease) on dialysis Current Visit: Yes Status: Chronic Plan to address problem: End-stage renal disease tolerating well hemodialysis on Saturday. (3) Encephalopathy Current Visit: No Status: Acute Plan to address problem: Cephalopathy has resolved at baseline. Patient well-known to myself. (4) Sepsis Current Visit: No Status: Acute Qualifiers: Sepsis type: sepsis due to unspecified organism Qualified Code(s): A41.9 - Sepsis, unspecified organism Plan to address problem: Sepsis resolving. Secondary to pneumonia patient still has underlying cough will add antitussive agent today. Continue Zosyn. Blood cultures unremarkable so far. No longer hypoxemic. Fever curve downtrending LEUKOCYTOSIS and clinically patient better with improvement in metabolic encphalopathy (5) End stage renal disease on dialysis Current Visit: No Status: Chronic (6) Pneumonia Current Visit: Yes Status: Acute Plan to address problem: Into Zosyn treatment for pneumonia improving. History Interval history: Patient at baseline this particular time. No evidence of encephalopathy. Patient recognizes me. Course complicated by cough. We'll add antitussive. Hospitalist Physical - Constitutional Vitals: Temp Pulse Resp BP Pulse Ox 97.2 F L 96 H 18 120/61 94 11/03/18 05:10 11/03/18 10:12 11/03/18 05:10 11/03/18 10:12 11/03/18 10:09 General appearance: Present: no acute distress, obese, other - EENT ENT: other (blind. Poor oral mucosa.) - Neck Neck: Present: supple, normal ROM - Respiratory Respiratory: bilateral: CTA (poor respiratory effort.) - Cardiovascular Rhythm: regular Heart Sounds: Present: S1 & S2 - Extremities Extremities: no ischemia, normal temperature, normal color Extremity abnormal: edema, pulses diminished, other (imaging range of motion ascites.) - Abdominal General gastrointestinal: soft, non-tender, non-distended, distended, normal bowel sounds - Integumentary Integumentary: Present: clear, warm, dry - Psychiatric Psychiatric: appropriate mood/affect, other (cognitive impairment.) - Neurologic Neurologic: focal deficits Results - Labs CBC & Chem 7: 11/03/18 04:32 11/03/18 04:32 Labs: Laboratory Last Values WBC 4.2 K/mm3 (4.5-11.0) L 11/03/18 04:32 RBC 3.96 M/mm3 (3.65-5.03) 11/03/18 04:32 Hgb 9.8 gm/dl (11.8-15.2) L 11/03/18 04:32 Hct 31.7 % (35.5-45.6) L 11/03/18 04:32 MCV 80 fl (84-94) L 11/03/18 04:32 MCH 25 pg (28-32) L 11/03/18 04:32 MCHC 31 % (32-34) L 11/03/18 04:32 RDW 20.7 % (13.2-15.2) H 11/03/18 04:32 Plt Count 210 K/mm3 (140-440) 11/03/18 04:32 Lymph % (Auto) Induction [place] 11/03/18 04:32 Early % (Auto) Induction [place] 11/03/18 04:32 Eos % (Auto) Induction [place] 11/03/18 04:32 Baso % (Auto) Induction [place] 11/03/18 04:32 Lymph # Induction [place] 11/03/18 04:32 Early # Induction [place] 11/03/18 04:32 Eos # Induction [place] 11/03/18 04:32 Baso # Induction [place] 11/03/18 04:32 Add Manual Diff Complete 10/30/18 04:42 Total Counted 100 10/30/18 04:42 Seg Neutrophils % Induction [place] 11/03/18 04:32 Seg Neuts % (Manual) 89.0 % (40.0-70.0) H 10/30/18 04:42 Band Neutrophils % 5.0 % 10/30/18 04:42 Lymphocytes % (Manual) 5.0 % (13.4-35.0) L 10/30/18 04:42 Reactive Lymphs % (Man) 0 % 10/30/18 04:42 Monocytes % (Manual) 1.0 % (0.0-7.3) 10/30/18 04:42 Eosinophils % (Manual) 0 % (0.0-4.3) 10/30/18 04:42 Basophils % (Manual) 0 % (0.0-1.8) 10/30/18 04:42 Metamyelocytes % 0 % 10/30/18 04:42 Myelocytes % 0 % 10/30/18 04:42 Promyelocytes % 0 % 10/30/18 04:42 Blast Cells % 0 % 10/30/18 04:42 Nucleated RBC % Not Reportable 10/30/18 04:42 Seg Neutrophils # Induction [place] 11/03/18 04:32 Seg Neutrophils # Man 4.1 K/mm3 (1.8-7.7) 10/30/18 04:42 Band Neutrophils # 0.2 K/mm3 10/30/18 04:42 Lymphocytes # (Manual) 0.2 K/mm3 (1.2-5.4) L 10/30/18 04:42 Abs React Lymphs (Man) 0.0 K/mm3 10/30/18 04:42 Monocytes # (Manual) 0.0 K/mm3 (0.0-0.8) 10/30/18 04:42 Eosinophils # (Manual) 0.0 K/mm3 (0.0-0.4) 10/30/18 04:42 Basophils # (Manual) 0.0 K/mm3 (0.0-0.1) 10/30/18 04:42 Metamyelocytes # 0.0 K/mm3 10/30/18 04:42 Myelocytes # 0.0 K/mm3 10/30/18 04:42 Promyelocytes # 0.0 K/mm3 10/30/18 04:42 Blast Cells # 0.0 K/mm3 10/30/18 04:42 WBC Morphology Not Reportable 10/30/18 04:42 Hypersegmented Neuts Not Reportable 10/30/18 04:42 Hyposegmented Neuts Not Reportable 10/30/18 04:42 Hypogranular Neuts Not Reportable 10/30/18 04:42 Smudge Cells Not Reportable 10/30/18 04:42 Toxic Granulation Not Reportable 10/30/18 04:42 Toxic Vacuolation Not Reportable 10/30/18 04:42 Dohle Bodies Not Reportable 10/30/18 04:42 Pelger-Huet Anomaly Not Reportable 10/30/18 04:42 Tramaine Rods Not Reportable 10/30/18 04:42 Platelet Estimate Appears normal 10/30/18 04:42 Clumped Platelets Not Reportable 10/30/18 04:42 Plt Clumps, EDTA Not Reportable 10/30/18 04:42 Large Platelets Not Reportable 10/30/18 04:42 Giant Platelets Not Reportable 10/30/18 04:42 Platelet Satelliting Not Reportable 10/30/18 04:42 Plt Morphology Comment Not Reportable 10/30/18 04:42 RBC Morphology Not Reportable 10/30/18 04:42 Dimorphic RBCs Not Reportable 10/30/18 04:42 Polychromasia Not Reportable 10/30/18 04:42 Hypochromasia 1+ 10/30/18 04:42 Poikilocytosis Not Reportable 10/30/18 04:42 Anisocytosis 1+ 10/30/18 04:42 Microcytosis Not Reportable 10/30/18 04:42 Macrocytosis Not Reportable 10/30/18 04:42 Spherocytes Not Reportable 10/30/18 04:42 Pappenheimer Bodies Not Reportable 10/30/18 04:42 Sickle Cells Not Reportable 10/30/18 04:42 Target Cells Few 10/30/18 04:42 Tear Drop Cells Not Reportable 10/30/18 04:42 Ovalocytes Not Reportable 10/30/18 04:42 Helmet Cells Not Reportable 10/30/18 04:42 Zhou-Angleton Bodies Not Reportable 10/30/18 04:42 [place]awk Rings Not Reportable 10/30/18 04:42 Hebert Cells Not Reportable 10/30/18 04:42 Bite Cells Not Reportable 10/30/18 04:42 Crenated Cell Not Reportable 10/30/18 04:42 Elliptocytes Not Reportable 10/30/18 04:42 Acanthocytes (Spur) Not Reportable 10/30/18 04:42 Rouleaux Not Reportable 10/30/18 04:42 Hemoglobin C Crystals Not Reportable 10/30/18 04:42 Schistocytes Not Reportable 10/30/18 04:42 Malaria parasites Not Reportable 10/30/18 04:42 Jose Juan Bodies Not Reportable 10/30/18 04:42 Hem Pathologist Commnt No 10/30/18 04:42 PT 15.9 Sec. (12.2-14.9) H 04/10/19 01:22 INR 1.19 (0.87-1.13) H 10/29/18 01:22 APTT 34.9 Sec. (24.2-36.6) 10/29/18 01:22 POC ABG pH 7.345 (7.35-7.45) L 10/29/18 00:56 POC ABG pCO2 47.7 (35-45) H 10/29/18 00:56 POC ABG pO2 81 (80-105) 10/29/18 00:56 POC ABG HCO3 26.0 (22-26 mml/L) 10/29/18 00:56 POC ABG Total CO2 27 (23-27mmol/L) 10/29/18 00:56 POC ABG O2 Sat 95 10/29/18 00:56 POC ABG Base Excess 0 ((-2) - (+3)mmol/L) 10/29/18 00:56 FiO2 32 % 10/29/18 00:56 Sodium 134 mmol/L (137-145) L 11/03/18 04:32 Potassium 3.4 mmol/L (3.6-5.0) L 11/03/18 04:32 Chloride 97.9 mmol/L (98-107) L 11/03/18 04:32 Carbon Dioxide 24 mmol/L (22-30) 11/03/18 04:32 Anion Gap 16 mmol/L 11/03/18 04:32 BUN 27 mg/dL (9-20) H 11/03/18 04:32 Creatinine 4.3 mg/dL (0.8-1.5) H 11/03/18 04:32 Estimated GFR 17 ml/min 11/03/18 04:32 BUN/Creatinine Ratio 6 % 11/03/18 04:32 Glucose 82 mg/dL (75-100) 11/03/18 04:32 POC Glucose 144 (70-105) H 10/31/18 08:17 Calcium 8.8 mg/dL (8.4-10.2) 11/03/18 04:32 Magnesium 2.00 mg/dL (1.7-2.3) 11/03/18 04:32 Total Bilirubin 0.40 mg/dL (0.1-1.2) 10/29/18 00:31 AST 23 units/L (5-40) 10/29/18 00:31 ALT 8 units/L (7-56) 10/29/18 00:31 Alkaline Phosphatase 97 units/L (35-129) 10/29/18 00:31 Total Creatine Kinase 27 units/L (55-170) L 10/29/18 01:22 CK-MB (CK-2) 2.8 ng/mL (0.0-4.0) 10/29/18 01:22 CK-MB (CK-2) Rel Index 10.3 (0-4) H 10/29/18 01:22 Troponin T 0.117 ng/mL (0.00-0.029) H* 10/29/18 09:16 Total Protein 7.2 g/dL (6.3-8.2) 10/29/18 00:31 Albumin 2.6 g/dL (3.9-5) L 10/29/18 00:31 Albumin/Globulin Ratio 0.6 % 10/29/18 00:31 Triglycerides 51 mg/dL (2-149) 10/29/18 01:22 Cholesterol 117 mg/dL (50-199) 10/29/18 01:22 LDL Cholesterol Direct 49 mg/dL (50-130) L 10/29/18 01:22 HDL Cholesterol 62 mg/dL (40-59) H 10/29/18 01:22 Cholesterol/HDL Ratio 1.88 % 10/29/18 01:22 Lipase 7 units/L (13-60) L 10/29/18 01:22 Active Medications - Current Medications Current Medications: Generic Name Dose Route Start Last Admin Trade Name Ismael PRN Reason Stop Dose Admin Acetaminophen 650 mg 10/29/18 05:05 10/31/18 21:24 Tylenol PO 650 mg Q4H PRN Administration Pain MILD(1-3)/Fever >100.5/HILL Lipase/Protease/Amylase 1 each 10/29/18 10:[address] 10,500 Unit FEEDTUBE PRN PRN For Clogged Feeding Tube Aspirin 81 mg 11/01/18 10:00 11/03/18 10:12 Halfprin Ec PO 81 mg DAILY SANCHEZ Administration Epoetin Solitario 10,000 unit 10/30/18 11:10 11/01/18 10:34 Procrit IV 10,000 unit UMA PRN Administration hemodialysis Famotidine 20 mg 11/01/18 10:00 11/03/18 10:12 Pepcid PO 20 mg DAILY SANCHEZ Administration Folic Acid 1 mg 11/01/18 10:00 11/03/18 10:12 Folvite PO 1 mg DAILY SANCHEZ Administration Gabapentin 100 mg 11/01/18 22:00 11/02/18 22:31 Neurontin PO 100 mg QHS SANCHEZ Administration Heparin Sodium (Porcine) 5,000 unit 10/29/18 06:00 11/03/18 06:07 Heparin SUB-Q 5,000 unit Q8HR SANCHEZ Administration Hydralazine HCl 20 mg 10/29/18 05:39 11/01/18 00:44 Apresoline IV 20 mg Q4H PRN Administration Blood Pressure Hydralazine HCl 50 mg 11/01/18 01:00 11/03/18 06:06 Apresoline PO 50 mg Q8HR SANCHEZ Administration Sodium Chloride 100 mls @ 999 mls/hr 10/30/18 11:10 Nacl 0.9% IV UMA PRN Hypotension Piperacillin Sod/Tazobactam Sod 2.25 gm in 50 mls @ 100 mls/hr 11/01/18 14:00 11/03/18 06:06 Zosyn/Ns 2.25 Gm/50ml IV 100 mls/hr Q8HR SANCHEZ Administration Isosorbide Mononitrate 30 mg 11/01/18 00:43 11/03/18 10:12 Imdur PO 30 mg DAILY SANCHEZ Administration Metoprolol Tartrate 75 mg 11/02/18 12:30 11/03/18 10:11 Lopressor PO 75 mg BID SANCHEZ Administration Minoxidil 2.5 mg 11/01/18 01:00 11/03/18 10:11 Loniten PO 2.5 mg BID SANCHEZ Administration Ondansetron HCl 4 mg 10/29/18 05:05 Zofran IV Q8H PRN Nausea And Vomiting Risperidone 1 mg 11/01/18 10:00 11/03/18 10:11 Risperdal PO 1 mg QAM SANCHEZ Administration Risperidone 0.5 mg 11/01/18 00:45 11/02/18 22:30 Risperdal PO 0.5 mg QHS SANCHEZ Administration Senna/Docusate Sodium 2 tab 10/29/18 06:00 11/03/18 06:08 Senokot S PO 2 tab Q12H SANCHEZ Administration Sertraline HCl 100 mg 11/01/18 10:00 11/03/18 10:11 Zoloft PO 100 mg QDAY SANCHEZ Administration Sevelamer Carbonate 800 mg 11/01/18 08:00 11/03/18 11:52 Renvela PO 800 mg TIDWM SANCHEZ Administration Simple Syrup 15 ml 10/29/18 10:27 Simple Syrup FEEDTUBE PRN PRN Hypoglycemia Simple Syrup 30 ml 10/29/18 10:27 Simple Syrup FEEDTUBE PRN PRN Hypoglycemia Sodium Bicarbonate 325 mg 10/29/18 10:27 11/01/18 12:10 Sodium Bicarbonate FEEDTUBE 325 mg PRN PRN Administration For Clogged Feeding Tube Sodium Chloride 10 ml 10/29/18 10:00 11/03/18 10:13 Sodium Chloride Flush Syringe 10 Ml IV 10 ml BID SANCHEZ Administration Sodium Chloride 10 ml 10/29/18 05:05 Sodium Chloride Flush Syringe 10 Ml IV PRN PRN LINE FLUSH Nutrition/Malnutrition Assess - Dietary Evaluation Nutrition/Malnutrition Findings: Nutrition Notes Start: 10/29/18 10:19 Freq: Status: Active Protocol: Document 10/31/18 16:41 RM (Rec: 10/31/18 16:51 RM [id number]) Nutrition Notes Initial or Follow up Reassessment Current Diagnosis CKD (stage V CKD),COPD, Coronary Artery Disease, Diabetes,Hypertension,Stroke Current Diet Nepro at 50 ml/hr Labs/Tests Reviewed Pertinent Medications Reviewed Height 5 ft 11 in Weight 101.8 kg [place] Body Weight (kg) 78.18 BMI 31.3 Weight change and time frame Current wt obtained from [facility] Subjective/Other Information Observed Nepro infusing at 50 ml/hr. Per nurse pt is tolerating TF. Burn Absent Trauma Absent #1 Nutrition Diagnosis Inadequate oral intake Diagnosis Progress(for reassessment Continues documentation) Is patient on ventilator? No Is Patient Ambulatory and/or Out of Bed No [facility] 2201.076 Kcal/Kg value to use for calculation 17 Approximate Energy Requirements Using 1731 kcal/Kg Calculation Used for Recommendations Kcal/kg Additional Notes Protein Needs: 108-135g (1.2-1 .5g/kg adjBW 90 kg) Fluid Needs: 1 ml/kcal Nutrition Intervention Nutrition Support: Nepro at 40 ml/hr. Water flush of 150 ml q 4 hrs. Kcal 1,728 Protein (gm) 78 Fat (gm) 698 Goal #1 TF to continue to meet protein and kcal needs Goal #2 TF tolerance Follow-Up By: 11/07/18 Additional Comments Follow for TF tolerance
[2018-11-03] MEDS: NEURONTIN PO SCH (21:19)
[2018-11-04] MEDS: ZOSYN/NS 2.25 GM/50ML 2.25 GM/50 ML BAG IV SCH ×2 (05:53→16:00)
[2018-11-04] MEDS: HEPARIN SUB-Q SCH ×3 (05:53→21:49)
[2018-11-04] MEDS: SENOKOT S PO SCH ×3 (05:54→18:54)
[2018-11-04] MEDS: APRESOLINE PO SCH ×3 (05:54→21:49)
--- NOTE | 2018-11-04 09:07 | Progress Note ---
Assessment and Plan Impression * End-stage renal disease and maintenance hemodialysis * Fever * Possible RML infiltrate * Schizophrenia * Chronic atrial fibrillation * Hypertension * Coronary artery disease * History of CVA Recommendations * Continue hemodialysis TTS * UF as tolerated * Abx per primary team * ST recommendations noted * Glycemic control per primary team * No IV, BP or venipuncture in his access arm * Adjust diet and meds for ESRD state * Avoid nephrotoxins * Procrit with dialysis Subjective Date of service: 11/04/18 Principal diagnosis: esrd Objective - Vital Signs Vital signs: Vital Signs - 12hr 11/03/18 11/03/18 11/03/18 21:20 22:00 22:44 Temperature 98.8 F Pulse Rate 98 H 92 H 90 Pulse Rate [ 92 H Apical] Respiratory 19 18 Rate Blood Pressure 104/51 109/58 O2 Sat by Pulse 96 90 Oximetry 11/04/18 11/04/18 11/04/18 01:00 04:21 05:54 Temperature 98.8 F 99.3 F Pulse Rate 89 95 H 95 H Pulse Rate [ Apical] Respiratory 20 24 Rate Blood Pressure 131/61 121/54 121/54 O2 Sat by Pulse 91 88 Oximetry 11/04/18 08:30 Temperature 98.1 F Pulse Rate 81 Pulse Rate [ Apical] Respiratory 20 Rate Blood Pressure 114/61 O2 Sat by Pulse 82 L Oximetry - Lab 11/03/18 04:32 11/03/18 04:32 Most recent lab results Calcium 8.8 mg/dL (8.4-10.2) 11/03/18 04:32 Magnesium 2.00 mg/dL (1.7-2.3) 11/03/18 04:32 Medications & Allergies - Medications Allergies/Adverse Reactions: Allergies haloperidol [From Haldol] Adverse Reaction (Verified 03/13/18 12:10) Unknown haloperidol lactate [From Haldol] Adverse Reaction (Verified 03/13/18 12:10) Unknown Home Medications: Home Medications Medication Instructions Recorded Confirmed Last Taken Type Gabapentin [Neurontin] 100 mg PO QHS #60 capsule 10/02/17 10/29/18 01/19/18 19:00 Rx Acetaminophen [Acetaminophen TAB] 1,000 mg PO Q12H PRN 03/13/18 10/29/18 Unknown History Insulin Aspart [NovoLOG Flexpen] 0 units SUB-Q QWEEK 03/13/18 10/29/18 Unknown History risperiDONE [RisperDAL] 1 mg PO QAM 03/13/18 10/29/18 Unknown History Aspirin EC [Aspirin Enteric Coated 81 mg PO DAILY 03/18/18 10/29/18 Unknown Hist ory TAB] Docusate Sodium [Colace CAP] 100 mg PO BID 03/18/18 10/29/18 Unknown History Folic Acid [Folvite] 1 mg PO DAILY 03/18/18 10/29/18 Unknown History ISOSORBIDE MONOnitrate [Imdur ER] 30 mg PO DAILY 03/18/18 10/29/18 Unknown History Metoprolol [Lopressor TAB] 50 mg PO BID 03/18/18 10/29/18 Unknown History Minoxidil [Loniten] 2.5 mg PO BID 03/18/18 10/29/18 Unknown History Sevelamer Carbonate [Renvela] 800 mg PO TIDWM 03/18/18 10/29/18 Unknown History Famotidine [Pepcid] 20 mg PO DAILY #30 tablet 06/09/18 10/29/18 Unknown Rx Sertraline [Zoloft] 100 mg PO QDAY 08/26/18 10/29/18 Unknown History risperiDONE [Risperdal] 0.5 mg PO HS 08/26/18 10/29/18 Unknown History hydrALAZINE [Apresoline TAB] 25 mg PO Q8HR tablet 09/02/18 10/29/18 Unknown Rx Active Medications: Generic Name Dose Route Start Last Admin Trade Name Freq PRN Reason Stop Dose Admin Acetaminophen 650 mg 10/29/18 05:05 10/31/18 21:24 Tylenol PO 650 mg Q4H PRN Administration Pain MILD(1-3)/Fever >100.5/HILL Lipase/Protease/Amylase 1 each 10/29/18 10:27 Pancreazkaren Barrientos 10,500 Unit FEEDTUBE PRN PRN For Clogged Feeding Tube Aspirin 81 mg 11/01/18 10:00 11/03/18 10:12 Halfprin Ec PO 81 mg DAILY SANCEHZ Administration Epoetin Solitario 10,000 unit 10/30/18 11:10 11/01/18 10:34 Procrit IV 10,000 unit UMA PRN Administration hemodialysis Famotidine 20 mg 11/01/18 10:00 11/03/18 10:12 Pepcid PO 20 mg DAILY SANCHEZ Administration Folic Acid 1 mg 11/01/18 10:00 11/03/18 10:12 Folvite PO 1 mg DAILY SANCHEZ Administration Gabapentin 100 mg 11/01/18 22:00 11/03/18 21:19 Neurontin PO 100 mg QHS SANCHEZ Administration Heparin Sodium (Porcine) 5,000 unit 10/29/18 06:00 11/04/18 05:53 Heparin SUB-Q 5,000 unit Q8HR SANCHEZ Administration Hydralazine HCl 20 mg 10/29/18 05:39 11/01/18 00:44 Apresoline IV 20 mg Q4H PRN Administration Blood Pressure Hydralazine HCl 50 mg 11/01/18 01:00 11/04/18 05:54 Apresoline PO 50 mg Q8HR SANCHEZ Administration Sodium Chloride 100 mls @ 999 mls/hr 10/30/18 11:10 Nacl 0.9% IV UMA PRN Hypotension Piperacillin Sod/Tazobactam Sod 2.25 gm in 50 mls @ 100 mls/hr 11/01/18 14:00 11/04/18 05:53 Zosyn/Ns 2.25 Gm/50ml IV 100 mls/hr Q8HR SANCHEZ Administration Isosorbide Mononitrate 30 mg 11/01/18 00:43 11/03/18 10:12 Imdur PO 30 mg DAILY SANCHEZ Administration Metoprolol Tartrate 75 mg 11/02/18 12:30 11/03/18 21:20 Lopressor PO 75 mg BID SANCHEZ Administration Minoxidil 2.5 mg 11/01/18 01:00 11/03/18 21:19 Loniten PO 2.5 mg BID SANCHEZ Administration Ondansetron HCl 4 mg 10/29/18 05:05 Zofran IV Q8H PRN Nausea And Vomiting Risperidone 1 mg 11/01/18 10:00 11/03/18 10:11 Risperdal PO 1 mg QAM SANCHEZ Administration Risperidone 0.5 mg 11/01/18 00:45 11/03/18 21:19 Risperdal PO 0.5 mg QHS SANCHEZ Administration Senna/Docusate Sodium 2 tab 10/29/18 06:00 11/04/18 05:54 Senokot S PO 2 tab Q12H SANCHEZ Administration Sertraline HCl 100 mg 11/01/18 10:00 11/03/18 10:11 Zoloft PO 100 mg QDAY SANCHEZ Administration Sevelamer Carbonate 800 mg 11/01/18 08:00 11/03/18 17:12 Renvela PO 800 mg TIDWM SANCHEZ Administration Simple Syrup 15 ml 10/29/18 10:27 Simple Syrup FEEDTUBE PRN PRN Hypoglycemia Simple Syrup 30 ml 10/29/18 10:27 Simple Syrup FEEDTUBE PRN PRN Hypoglycemia Sodium Bicarbonate 325 mg 10/29/18 10:27 11/01/18 12:10 Sodium Bicarbonate FEEDTUBE 325 mg PRN PRN Administration For Clogged Feeding Tube Sodium Chloride 10 ml 10/29/18 10:00 11/03/18 21:21 Sodium Chloride Flush Syringe 10 Ml IV 10 ml BID SANCHEZ Administration Sodium Chloride 10 ml 10/29/18 05:05 Sodium Chloride Flush Syringe 10 Ml IV PRN PRN LINE FLUSH
[2018-11-04] MEDS: RENVELA PO SCH ×3 (09:31→15:59)
[2018-11-04] MEDS: SODIUM CHLORIDE FLUSH SYRINGE 10 ML IV SCH ×2 (09:58→21:50)
[2018-11-04] MEDS ORDERED: PROCRIT ONE (10:58)
[2018-11-04] MEDS ORDERED: NACL 0.9 (PRIMING MACHINE ONLY DIALYSIS) MC ONE (14:20)
[2018-11-04] MEDS: LOPRESSOR PO SCH ×2 (14:29→21:49)
[2018-11-04] MEDS: LONITEN PO SCH ×2 (14:29→21:49)
[2018-11-04] MEDS: PEPCID PO SCH (14:29)
[2018-11-04] MEDS: HALFPRIN EC PO SCH (14:29)
[2018-11-04] MEDS: IMDUR PO SCH (14:30)
[2018-11-04] MEDS: ZOLOFT PO SCH (14:30)
[2018-11-04] MEDS: FOLVITE PO SCH (14:32)
[2018-11-04] MEDS: RisperDAL PO SCH ×2 (14:32→21:48)
--- NOTE | 2018-11-04 15:10 | Progress Note ---
Assessment and Plan Assessment and plan: Sepsis -Probably secondary to right middle lobe pneumonia -We'll change IV antibiotic to oral. -Blood cultures negative so far Acute metabolic encephalopathy -Improved to baseline -Head CT scan negative for acute findings Acute on chronic hyponatremia -Improved, will monitor ESRD on hemodialysis -Nephrology following Anasarca -Improved with dialysis Hypokalemia, recurrent -We'll monitor level Chronic troponin level elevation -Stable, no acute chest pain Hypertension -Controlled on current antihypertensives, adjust as needed Fecal impaction -Improved on laxatives CAD -Stable History of CVA -Continue supportive care Atrial fibrillation -Heart rate controlled Dementia, stable DM2 -controlled COPD -No acute exacerbation -On PRN duoneb Chronic systolic HF with EF of 40-45% -No acute exacerbation Dysphagia -On pureed diet Disposition: We'll plan for discharge in a.m. if clinically stable History Interval history: Pt has no new complaints. No reported issues overnight. Hospitalist Physical - Constitutional Vitals: Temp Pulse Resp BP Pulse Ox 98.8 F 86 21 130/87 96 11/04/18 13:35 11/04/18 14:30 11/04/18 13:35 11/04/18 14:30 11/04/18 09:53 General appearance: Present: no acute distress - EENT Eyes: Present: PERRL, EOM intact (right eye blindness) ENT: hearing intact, clear oral mucosa - Neck Neck: Present: supple - Respiratory Respiratory effort: normal Respiratory: bilateral: CTA - Cardiovascular Rhythm: regular Heart Sounds: Present: S1 & S2 - Extremities Extremity abnormal: edema (trace edema in BLE) - Abdominal General gastrointestinal: soft, non-tender, non-distended, normal bowel sounds - Integumentary Integumentary: Present: clear, warm, dry - Neurologic Neurologic: moves all extremities Results - Labs CBC & Chem 7: 11/03/18 04:32 11/03/18 04:32 Labs: Laboratory Last Values WBC 4.2 K/mm3 (4.5-11.0) L 11/03/18 04:32 RBC 3.96 M/mm3 (3.65-5.03) 11/03/18 04:32 Hgb 9.8 gm/dl (11.8-15.2) L 11/03/18 04:32 Hct 31.7 % (35.5-45.6) L 11/03/18 04:32 MCV 80 fl (84-94) L 11/03/18 04:32 MCH 25 pg (28-32) L 11/03/18 04:32 MCHC 31 % (32-34) L 11/03/18 04:32 RDW 20.7 % (13.2-15.2) H 11/03/18 04:32 Plt Count 210 K/mm3 (140-440) 11/03/18 04:32 Lymph % (Auto) Health Safety Specialist 11/03/18 04:32 Armstrong % (Auto) Health Safety Specialist 11/03/18 04:32 Eos % (Auto) Health Safety Specialist 11/03/18 04:32 Baso % (Auto) Health Safety Specialist 11/03/18 04:32 Lymph # Health Safety Specialist 11/03/18 04:32 Armstrong # Health Safety Specialist 11/03/18 04:32 Eos # Health Safety Specialist 11/03/18 04:32 Baso # Health Safety Specialist 11/03/18 04:32 Add Manual Diff Complete 10/30/18 04:42 Total Counted 100 10/30/18 04:42 Seg Neutrophils % Health Safety Specialist 11/03/18 04:32 Seg Neuts % (Manual) 89.0 % (40.0-70.0) H 10/30/18 04:42 Band Neutrophils % 5.0 % 10/30/18 04:42 Lymphocytes % (Manual) 5.0 % (13.4-35.0) L 10/30/18 04:42 Reactive Lymphs % (Man) 0 % 10/30/18 04:42 Monocytes % (Manual) 1.0 % (0.0-7.3) 10/30/18 04:42 Eosinophils % (Manual) 0 % (0.0-4.3) 10/30/18 04:42 Basophils % (Manual) 0 % (0.0-1.8) 10/30/18 04:42 Metamyelocytes % 0 % 10/30/18 04:42 Myelocytes % 0 % 10/30/18 04:42 Promyelocytes % 0 % 10/30/18 04:42 Blast Cells % 0 % 10/30/18 04:42 Nucleated RBC % Not Reportable 10/30/18 04:42 Seg Neutrophils # Health Safety Specialist 11/03/18 04:32 Seg Neutrophils # Man 4.1 K/mm3 (1.8-7.7) 10/30/18 04:42 Band Neutrophils # 0.2 K/mm3 10/30/18 04:42 Lymphocytes # (Manual) 0.2 K/mm3 (1.2-5.4) L 10/30/18 04:42 Abs React Lymphs (Man) 0.0 K/mm3 10/30/18 04:42 Monocytes # (Manual) 0.0 K/mm3 (0.0-0.8) 10/30/18 04:42 Eosinophils # (Manual) 0.0 K/mm3 (0.0-0.4) 10/30/18 04:42 Basophils # (Manual) 0.0 K/mm3 (0.0-0.1) 10/30/18 04:42 Metamyelocytes # 0.0 K/mm3 10/30/18 04:42 Myelocytes # 0.0 K/mm3 10/30/18 04:42 Promyelocytes # 0.0 K/mm3 10/30/18 04:42 Blast Cells # 0.0 K/mm3 10/30/18 04:42 WBC Morphology Not Reportable 10/30/18 04:42 Hypersegmented Neuts Not Reportable 10/30/18 04:42 Hyposegmented Neuts Not Reportable 10/30/18 04:42 Hypogranular Neuts Not Reportable 10/30/18 04:42 Smudge Cells Not Reportable 10/30/18 04:42 Toxic Granulation Not Reportable 10/30/18 04:42 Toxic Vacuolation Not Reportable 10/30/18 04:42 Dohle Bodies Not Reportable 10/30/18 04:42 Pelger-Huet Anomaly Not Reportable 10/30/18 04:42 Tramaine Rods Not Reportable 10/30/18 04:42 Platelet Estimate Appears normal 10/30/18 04:42 Clumped Platelets Not Reportable 10/30/18 04:42 Plt Clumps, EDTA Not Reportable 10/30/18 04:42 Large Platelets Not Reportable 10/30/18 04:42 Giant Platelets Not Reportable 10/30/18 04:42 Platelet Satelliting Not Reportable 10/30/18 04:42 Plt Morphology Comment Not Reportable 10/30/18 04:42 RBC Morphology Not Reportable 10/30/18 04:42 Dimorphic RBCs Not Reportable 10/30/18 04:42 Polychromasia Not Reportable 10/30/18 04:42 Hypochromasia 1+ 10/30/18 04:42 Poikilocytosis Not Reportable 10/30/18 04:42 Anisocytosis 1+ 10/30/18 04:42 Microcytosis Not Reportable 10/30/18 04:42 Macrocytosis Not Reportable 10/30/18 04:42 Spherocytes Not Reportable 10/30/18 04:42 Pappenheimer Bodies Not Reportable 10/30/18 04:42 Sickle Cells Not Reportable 10/30/18 04:42 Target Cells Few 10/30/18 04:42 Tear Drop Cells Not Reportable 10/30/18 04:42 Ovalocytes Not Reportable 10/30/18 04:42 Helmet Cells Not Reportable 10/30/18 04:42 Zhou-Joshua Bodies Not Reportable 10/30/18 04:42 Victoria Rings Not Reportable 10/30/18 04:42 Hebert Cells Not Reportable 10/30/18 04:42 Bite Cells Not Reportable 10/30/18 04:42 Crenated Cell Not Reportable 10/30/18 04:42 Elliptocytes Not Reportable 10/30/18 04:42 Acanthocytes (Spur) Not Reportable 10/30/18 04:42 Rouleaux Not Reportable 10/30/18 04:42 Hemoglobin C Crystals Not Reportable 10/30/18 04:42 Schistocytes Not Reportable 10/30/18 04:42 Malaria parasites Not Reportable 10/30/18 04:42 Jose Juan Bodies Not Reportable 10/30/18 04:42 Hem Pathologist Commnt No 10/30/18 04:42 PT 15.9 Sec. (12.2-14.9) H 10/29/18 01:22 INR 1.19 (0.87-1.13) H 10/29/18 01:22 APTT 34.9 Sec. (24.2-36.6) 10/29/18 01:22 POC ABG pH 7.345 (7.35-7.45) L 10/29/18 00:56 POC ABG pCO2 47.7 (35-45) H 10/29/18 00:56 POC ABG pO2 81 (80-105) 10/29/18 00:56 POC ABG HCO3 26.0 (22-26 mml/L) 10/29/18 00:56 POC ABG Total CO2 27 (23-27mmol/L) 10/29/18 00:56 POC ABG O2 Sat 95 04 00:56 POC ABG Base Excess 0 ((-2) - (+3)mmol/L) 10/29/18 00:56 FiO2 32 % 10/29/18 00:56 Sodium 134 mmol/L (137-145) L 11/03/18 04:32 Potassium 3.4 mmol/L (3.6-5.0) L 11/03/18 04:32 Chloride 97.9 mmol/L (98-107) L 11/03/18 04:32 Carbon Dioxide 24 mmol/L (22-30) 11/03/18 04:32 Anion Gap 16 mmol/L 11/03/18 04:32 BUN 27 mg/dL (9-20) H 11/03/18 04:32 Creatinine 4.3 mg/dL (0.8-1.5) H 11/03/18 04:32 Estimated GFR 17 ml/min 11/03/18 04:32 BUN/Creatinine Ratio 6 % 11/03/18 04:32 Glucose 82 mg/dL (75-100) 11/03/18 04:32 POC Glucose 144 (70-105) H 10/31/18 08:17 Calcium 8.8 mg/dL (8.4-10.2) 11/03/18 04:32 Magnesium 2.00 mg/dL (1.7-2.3) 11/03/18 04:32 Total Bilirubin 0.40 mg/dL (0.1-1.2) 10/29/18 00:31 AST 23 units/L (5-40) 10/29/18 00:31 ALT 8 units/L (7-56) 10/29/18 00:31 Alkaline Phosphatase 97 units/L (35-129) 10/29/18 00:31 Total Creatine Kinase 27 units/L (55-170) L 10/29/18 01:22 CK-MB (CK-2) 2.8 ng/mL (0.0-4.0) 10/29/18 01:22 CK-MB (CK-2) Rel Index 10.3 (0-4) H 10/29/18 01:22 Troponin T 0.117 ng/mL (0.00-0.029) H* 10/29/18 09:16 Total Protein 7.2 g/dL (6.3-8.2) 10/29/18 00:31 Albumin 2.6 g/dL (3.9-5) L 10/29/18 00:31 Albumin/Globulin Ratio 0.6 % 10/29/18 00:31 Triglycerides 51 mg/dL (2-149) 10/29/18 01:22 Cholesterol 117 mg/dL (50-199) 10/29/18 01:22 LDL Cholesterol Direct 49 mg/dL (50-130) L 10/29/18 01:22 HDL Cholesterol 62 mg/dL (40-59) H 10/29/18 01:22 Cholesterol/HDL Ratio 1.88 % 10/29/18 01:22 Lipase 7 units/L (13-60) L 10/29/18 01:22 Active Medications - Current Medications Current Medications: Generic Name Dose Route Start Last Admin Trade Name Freq PRN Reason Stop Dose Admin Acetaminophen 650 mg 10/29/18 05:05 10/31/18 21:24 Tylenol PO 650 mg Q4H PRN Administration Pain MILD(1-3)/Fever >100.5/HILL Lipase/Protease/Amylase 1 each 10/29/18 10:[address] 10,500 Unit FEEDTUBE PRN PRN For Clogged Feeding Tube Aspirin 81 mg 11/01/18 10:00 11/04/18 14:29 Halfprin Ec PO 81 mg DAILY SANCHEZ Administration Epoetin Solitario 10,000 unit 10/30/18 11:10 11/01/18 10:34 Procrit IV 10,000 unit UMA PRN Administration hemodialysis Famotidine 20 mg 11/01/18 10:00 11/04/18 14:29 Pepcid PO 20 mg DAILY SANCHEZ Administration Folic Acid 1 mg 11/01/18 10:00 11/04/18 14:32 Folvite PO 1 mg DAILY SANCHEZ Administration Gabapentin 100 mg 11/01/18 22:00 11/03/18 21:19 Neurontin PO 100 mg QHS SANCHEZ Administration Heparin Sodium (Porcine) 5,000 unit 10/29/18 06:00 11/04/18 14:28 Heparin SUB-Q 5,000 unit Q8HR SANCHEZ Administration Hydralazine HCl 20 mg 10/29/18 05:39 11/01/18 00:44 Apresoline IV 20 mg Q4H PRN Administration Blood Pressure Hydralazine HCl 50 mg 11/01/18 01:00 11/04/18 14:28 Apresoline PO 50 mg Q8HR SANCHEZ Administration Sodium Chloride 100 mls @ 999 mls/hr 10/30/18 11:10 Nacl 0.9% IV UMA PRN Hypotension Isosorbide Mononitrate 30 mg 11/01/18 00:43 11/04/18 14:30 Imdur PO 30 mg DAILY [facility] Administration Levofloxacin 750 mg 11/04/18 16:00 Levaquin PO Q48H [facility] Metoprolol Tartrate 75 mg 11/02/18 12:30 11/04/18 14:29 Lopressor PO 75 mg BID [facility] Administration Minoxidil 2.5 mg 11/01/18 01:00 11/04/18 14:29 Loniten PO 2.5 mg BID [facility] Administration Ondansetron HCl 4 mg 10/29/18 05:05 Zofran IV Q8H PRN Nausea And Vomiting Risperidone 1 mg 11/01/18 10:00 11/04/18 14:32 Risperdal PO 1 mg QAM [facility] Administration Risperidone 0.5 mg 11/01/18 00:45 11/03/18 21:19 Risperdal PO 0.5 mg QHS [facility] Administration Senna/Docusate Sodium 2 tab 10/29/18 06:00 11/04/18 05:54 Senokot S PO 2 tab Q12H SANCHEZ Administration Sertraline HCl 100 mg 11/01/18 10:00 11/04/18 14:30 Zoloft PO 100 mg QDAY SANCHEZ Administration Sevelamer Carbonate 800 mg 11/01/18 08:00 11/04/18 09:31 Renvela PO 800 mg TIDWM SANCHEZ Administration Simple Syrup 15 ml 10/29/18 10:27 Simple Syrup FEEDTUBE PRN PRN Hypoglycemia Simple Syrup 30 ml 10/29/18 10:27 Simple Syrup FEEDTUBE PRN PRN Hypoglycemia Sodium Bicarbonate 325 mg 10/29/18 10:27 11/01/18 12:10 Sodium Bicarbonate FEEDTUBE 325 mg PRN PRN Administration For Clogged Feeding Tube Sodium Chloride 10 ml 10/29/18 10:00 11/04/18 09:58 Sodium Chloride Flush Syringe 10 Ml IV 10 ml BID SANCHEZ Administration Sodium Chloride 10 ml 10/29/18 05:05 Sodium Chloride Flush Syringe 10 Ml IV PRN PRN LINE FLUSH Nutrition/Malnutrition Assess - Dietary Evaluation Nutrition/Malnutrition Findings: Nutrition Notes Start: 10/29/18 10:19 Freq: Status: Active Protocol: Document 10/31/18 16:41 RM (Rec: 10/31/18 16:51 RM [id number]) Nutrition Notes Initial or Follow up Reassessment Current Diagnosis CKD (stage V CKD),COPD, Coronary Artery Disease, Diabetes,Hypertension,Stroke Current Diet Nepro at 50 ml/hr Labs/Tests Reviewed Pertinent Medications Reviewed Height 5 ft 11 in Weight 101.8 kg [place] Body Weight (kg) 78.18 BMI 31.3 Weight change and time frame Current wt obtained from bedscale Subjective/Other Information Observed Nepro infusing at 50 ml/hr. Per nurse pt is tolerating TF. Burn Absent Trauma Absent #1 Nutrition Diagnosis Inadequate oral intake Diagnosis Progress(for reassessment Continues documentation) Is patient on ventilator? No Is Patient Ambulatory and/or Out of Bed No REE-([place]-confined to bed) 2201.076 Kcal/Kg value to use for calculation 17 Approximate Energy Requirements Using 1731 kcal/Kg Calculation Used for Recommendations Kcal/kg Additional Notes Protein Needs: 108-135g (1.2-1 .5g/kg adjBW 90 kg) Fluid Needs: 1 ml/kcal Nutrition Intervention Nutrition Support: Nepro at 40 ml/hr. Water flush of 150 ml q 4 hrs. Kcal 1,728 Protein (gm) 78 Fat (gm) 698 Goal #1 TF to continue to meet protein and kcal needs Goal #2 TF tolerance Follow-Up By: 11/07/18 Additional Comments Follow for TF tolerance
[2018-11-04] MEDS ORDERED: LEVAQUIN PO SCH (16:00)
[2018-11-04] MEDS: TYLENOL PO PRN (16:06)
[2018-11-04] MEDS: NEURONTIN PO SCH (21:49)
[2018-11-05 05:28] LABS: Basophils % (Auto) 1.1 % (0.0-1.8); Eosinophils # (Auto) 0.2 K/mm3 (0.0-0.4); Eosinophils % (Auto) 5.8 % (0.0-4.3); Hematocrit 30.7 % (35.5-45.6); Hemoglobin 9.6 gm/dl (11.8-15.2); Lymphocytes # (Auto) 0.5 K/mm3 (1.2-5.4); Lymphocytes % (Auto) 11.7 % (13.4-35.0); Mean Corpuscular HGB Conc 31 % (32-34); Mean Corpuscular Volume 80 fl (84-94); Monocytes # (Auto) 0.5 K/mm3 (0.0-0.8); Monocytes % (Auto) 12.2 % (0.0-7.3); Platelet Count 218 K/mm3 (140-440); Red Blood Count 3.86 M/mm3 (3.65-5.03)
[2018-11-05 05:49] LABS: Calcium 8.7 mg/dL (8.4-10.2)
[2018-11-05] MEDS: HEPARIN SUB-Q SCH (06:18)
[2018-11-05] MEDS: APRESOLINE PO SCH ×2 (06:18→16:52)
[2018-11-05] MEDS: SENOKOT S PO SCH (06:18)
[2018-11-05] MEDS: RENVELA PO SCH ×2 (08:52→13:00)
[2018-11-05] MEDS: LONITEN PO SCH (11:14)
[2018-11-05] MEDS: HALFPRIN EC PO SCH (11:14)
[2018-11-05] MEDS: PEPCID PO SCH (11:14)
[2018-11-05] MEDS: LOPRESSOR PO SCH (11:14)
[2018-11-05] MEDS: ZOLOFT PO SCH (11:15)
[2018-11-05] MEDS: FOLVITE PO SCH (11:15)
[2018-11-05] MEDS: RisperDAL PO SCH (11:15)
[2018-11-05] MEDS: IMDUR PO SCH (11:15)
--- NOTE | 2018-11-05 11:15 | Progress Note ---
Assessment and Plan Impression * End-stage renal disease and maintenance hemodialysis * Fever * Possible RML infiltrate * Schizophrenia * Chronic atrial fibrillation * Hypertension * Coronary artery disease * History of CVA Recommendations * Continue hemodialysis TTS * UF as tolerated * Abx per primary team * ST recommendations noted * Glycemic control per primary team * No IV, BP or venipuncture in his access arm * Adjust diet and meds for ESRD state * Avoid nephrotoxins * Procrit with dialysis Subjective Date of service: 11/05/18 Principal diagnosis: esrd Objective - Vital Signs Vital signs: Vital Signs - 12hr 11/04/18 11/05/18 11/05/18 23:27 03:41 07:51 Temperature 98.3 F 98.0 F Pulse Rate 79 79 79 Respiratory 20 18 Rate Blood Pressure 132/62 155/75 O2 Sat by Pulse 99 98 Oximetry 11/05/18 11/05/18 11/05/18 08:11 09:34 09:39 Temperature 97.4 F L Pulse Rate 79 89 Respiratory Rate Blood Pressure 147/74 O2 Sat by Pulse 94 Oximetry - Lab 11/05/18 05:03 11/05/18 05:03 Most recent lab results Calcium 8.7 mg/dL (8.4-10.2) 11/05/18 05:03 Magnesium 2.00 mg/dL (1.7-2.3) 11/03/18 04:32 Medications & Allergies - Medications Allergies/Adverse Reactions: Allergies haloperidol [From Haldol] Adverse Reaction (Verified 03/13/18 12:10) Unknown haloperidol lactate [From Haldol] Adverse Reaction (Verified 03/13/18 12:10) Unknown Home Medications: Home Medications Medication Instructions Recorded Confirmed Last Taken Type Gabapentin [Neurontin] 100 mg PO QHS #60 capsule 10/02/17 10/29/18 01/19/18 19 :00 Rx Acetaminophen [Acetaminophen TAB] 1,000 mg PO Q12H PRN 03/13/18 10/29/18 Unknown History Insulin Aspart [NovoLOG Flexpen] 0 units SUB-Q QWEEK 03/13/18 10/29/18 Unknown History risperiDONE [RisperDAL] 1 mg PO QAM 03/13/18 10/29/18 Unknown History Aspirin EC [Aspirin Enteric Coated 81 mg PO DAILY 03/18/18 10/29/18 Unknown History TAB] Docusate Sodium [Colace CAP] 100 mg PO BID 03/18/18 10/29/18 Unknown History Folic Acid [Folvite] 1 mg PO DAILY 03/18/18 10/29/18 Unknown History ISOSORBIDE MONOnitrate [Imdur ER] 30 mg PO DAILY 03/18/18 10/29/18 Unknown History Metoprolol [Lopressor TAB] 50 mg PO BID 03/18/18 10/29/18 Unknown History Minoxidil [Loniten] 2.5 mg PO BID 03/18/18 10/29/18 Unknown History Sevelamer Carbonate [Renvela] 800 mg PO TIDWM 03/18/18 10/29/18 Unknown History Famotidine [Pepcid] 20 mg PO DAILY #30 tablet 06/09/18 10/29/18 Unknown Rx Sertraline [Zoloft] 100 mg PO QDAY 08/26/18 10/29/18 Unknown History risperiDONE [Risperdal] 0.5 mg PO HS 08/26/18 10/29/18 Unknown History hydrALAZINE [Apresoline TAB] 25 mg PO Q8HR tablet 09/02/18 10/29/18 Unknown Rx Active Medications: Generic Name Dose Route Start Last Admin Trade Name Freq PRN Reason Stop Dose Admin Acetaminophen 650 mg 10/29/18 05:05 11/04/18 16:06 Tylenol PO 650 mg Q4H PRN Administration Pain MILD(1-3)/Fever >100.5/HILL Lipase/Protease/Amylase 1 each 10/29/18 10:[address] 10,500 Unit FEEDTUBE PRN PRN For Clogged Feeding Tube Aspirin 81 mg 11/01/18 10:00 11/04/18 14:29 Halfprin Ec PO 81 mg DAILY [facility] Administration Epoetin Solitario 10,000 unit 10/30/18 11:10 11/01/18 10:34 Procrit IV 10,000 unit UMA PRN Administration hemodialysis Famotidine 20 mg 11/01/18 10:00 11/04/18 14:29 Pepcid PO 20 mg DAILY [facility]Z Administration Folic Acid 1 mg 11/01/18 10:00 11/04/18 14:32 Folvite PO 1 mg DAILY [facility] Administration Gabapentin 100 mg 11/01/18 22:00 11/04/18 21:49 Neurontin PO 100 mg QHS SANCHEZ Administration Heparin Sodium (Porcine) 5,000 unit 10/29/18 06:00 11/05/18 06:18 Heparin SUB-Q 5,000 unit Q8HR SANCHEZ Administration Hydralazine HCl 20 mg 10/29/18 05:39 11/01/18 00:44 Apresoline IV 20 mg Q4H PRN Administration Blood Pressure Hydralazine HCl 50 mg 11/01/18 01:00 11/05/18 06:18 Apresoline PO 50 mg Q8HR [facility]ANCHEZ Administration Sodium Chloride 100 mls @ 999 mls/hr 10/30/18 11:10 Nacl 0.9% IV UMA PRN Hypotension Isosorbide Mononitrate 30 mg 11/01/18 00:43 11/04/18 14:30 Imdur PO 30 mg DAILY [facility] Administration Levofloxacin 500 mg 11/06/18 10:00 Levaquin PO Q48HR [facility] Metoprolol Tartrate 75 mg 11/02/18 12:30 11/04/18 21:49 Lopressor PO 75 mg BID [facility] Administration Minoxidil 2.5 mg 11/01/18 01:00 11/04/18 21:49 Loniten PO 2.5 mg BID [facility] Administration Ondansetron HCl 4 mg 10/29/18 05:05 Zofran IV Q8H PRN Nausea And Vomiting Risperidone 1 mg 11/01/18 10:00 11/04/18 14:32 Risperdal PO 1 mg QAM [facility] Administration Risperidone 0.5 mg 11/01/18 00:45 11/04/18 21:48 Risperdal PO 0.5 mg QHS [facility] Administration Senna/Docusate Sodium 2 tab 10/29/18 06:00 11/05/18 06:18 Senokot S PO 2 tab Q12H [facility] Administration Sertraline HCl 100 mg 11/01/18 10:00 11/04/18 14:30 Zoloft PO 100 mg QDAY [facility] Administration Sevelamer Carbonate 800 mg 11/01/18 08:00 11/04/18 15:59 Renvela PO 800 mg TIDWM [facility] Administration Simple Syrup 15 ml 10/29/18 10:27 Simple Syrup FEEDTUBE PRN PRN Hypoglycemia Simple Syrup 30 ml 10/29/18 10:27 Simple Syrup FEEDTUBE PRN PRN Hypoglycemia Sodium Bicarbonate 325 mg 10/29/18 10:27 11/01/18 12:10 Sodium Bicarbonate FEEDTUBE 325 mg PRN PRN Administration For Clogged Feeding Tube Sodium Chloride 10 ml 10/29/18 10:00 11/04/18 21:50 Sodium Chloride Flush Syringe 10 Ml IV 10 ml BID [facility] Administration Sodium Chloride 10 ml 10/29/18 05:05 Sodium Chloride Flush Syringe 10 Ml IV PRN PRN LINE FLUSH
[2018-11-05 13:18] VITALS: BP 133/63
[2018-11-05] MEDS ORDERED: FLEET PR ONE (14:21)
--- NOTE | 2018-11-05 14:44 | Discharge Summary ---
Providers - Providers Date of Admission: 10/29/18 05:05 Date of discharge: 11/05/18 Attending physician: MARCO INFANTE 10/29/18 04:51 Consult to Physician [CONS] Urgent Comment: Dr. Murphy spoke with Dr. Tomlinson @ [phone] Consulting Provider: SAM TOMLINSON Physician Instructions: Reason For Exam: esrd 10/29/18 10:10 Consult to Dietitian/Nutrition [CONS] Routine Physician Instructions: Reason For Exam: Reason for Consult: Write/Manage Tube Feeding Consult to Dietitian/Nutrition [CONS] Routine Physician Instructions: Reason For Exam: tube feeding Reason for Consult: Write/Manage Tube Feeding 10/30/18 09:43 Speech Therapy Evaluation and Treat [CONS] Routine Reason For Exam: Altered mental status [facility] Reason for admission: Sepsis Condition: Stable Pertinent studies: CT abdomen and pelvis Chest x-ray Head CT scan Procedures: None Hospital course: Final discharge diagnosis: -Sepsis probably secondary to right middle lobe pneumonia -Acute metabolic encephalopathy -Acute on chronic hyponatremia -ESRD on hemodialysis -Anasarca -Hypokalemia, recurrent -Chronic troponin level elevation -Hypertension -Fecal impaction -CAD -History of CVA -Atrial fibrillation -Dementia, stable -DM2 -COPD -Chronic systolic HF with EF of 40-45% -Chronic Dysphagia Hospital course: On admission, patient was placed on IV antibiotic after blood cultures were obtained. He also received laxatives for the fecal impaction. In addition, he underwent his regularly scheduled hemodialysis which is managed by his massage coordinator. He received potassium supplement for the hypokalemia. For his other comorbidities, he was continued on his home medications. Subsequently, he improved clinically and he was then deemed stable for [facility] back [facility]. The blood cultures obtained later came back negative for any growth. Of note, due to the patient's multiple comorbidities and overall poor prognosis, he remains high risk for hospital readmission. Several discu ssions had been held with the patient's family members for the option of hospice care, however they refused. Disposition: DC/[place]-03 SNF [facility] Core Measure Documentation - Palliative Care Palliative Care/ Comfort Measures: Not Applicable - Core Measures Any of the following diagnoses?: none Exam - Constitutional Vitals: Temp Pulse Resp BP Pulse Ox 98.4 F 93 H 18 133/63 99 11/05/18 13:15 11/05/18 13:15 11/05/18 13:15 11/05/18 13:15 11/05/18 13:15 General appearance: Present: no acute distress - EENT Eyes: Present: PERRL, EOM intact ENT: clear oral mucosa - Neck Neck: Present: supple, normal ROM - Respiratory Respiratory effort: normal Respiratory: bilateral: CTA - Cardiovascular Rhythm: regular Heart Sounds: Present: S1 & S2. Absent: rub, click - Extremities Extremity abnormal: edema (trace edema in bilateral lower extremities) Peripheral Pulses: within normal limits - Abdominal General gastrointestinal: Present: soft, non-tender, non-distended, normal bowel sounds Male genitourinary: Present: deferred - Integumentary Integumentary: Present: clear, warm, dry - Musculoskeletal Musculoskeletal: gait normal, strength equal bilaterally - Neurologic Neurologic: moves all extremities Plan Follow up with: KB RODRIGUES MD [Primary Care Provider] - 3-5 Days Prescriptions: Polyethylene Glycol 3350 [Miralax 3350] 17 gm PO QDAY #30 packet levoFLOXacin [Levaquin TAB] 500 mg PO Q48HR #3 tablet
[2018-11-06] MEDS ORDERED: LEVAQUIN PO SCH (10:00)
== END 2018-11-05 17:18 | DRG 70 ==
LOC: ED 23:24 → 4A 10-29 05:05
PROVIDERS: ADMIT Internal Medicine; ATTEND Internal Medicine
PROC: 4A033R1 Measurement of Arterial Saturation, Peripheral, Percutaneous Approach (ICD-10-PCS; principal; 2018-10-29)
PROC: 5A1D70Z Performance of Urinary Filtration, Intermittent, Less than 6 Hours Per Day (ICD-10-PCS; 2018-10-30)
PROC: 5A1D70Z Performance of Urinary Filtration, Intermittent, Less than 6 Hours Per Day (ICD-10-PCS; 2018-11-01)
PROC: 5A1D70Z Performance of Urinary Filtration, Intermittent, Less than 6 Hours Per Day (ICD-10-PCS; 2018-11-04)
DX: G93.41 Metabolic encephalopathy (principal); N18.6 End stage renal disease; A41.9 Sepsis, unspecified organism; J18.9 Pneumonia, unspecified organism; E87.1 Hypo-osmolality and hyponatremia; I50.22 Chronic systolic (congestive) heart failure; I13.0 Hypertensive heart and chronic kidney disease with heart failure and stage 1 through stage 4 chronic kidney disease, or unspecified chronic kidney disease; J44.0 Chronic obstructive pulmonary disease with (acute) lower respiratory infection; N25.81 Secondary hyperparathyroidism of renal origin; I42.9 Cardiomyopathy, unspecified; F20.9 Schizophrenia, unspecified; I25.10 Atherosclerotic heart disease of native coronary artery without angina pectoris; I48.2 Chronic atrial fibrillation; E87.6 Hypokalemia; K56.41 Fecal impaction; F03.90 Unspecified dementia, unspecified severity, without behavioral disturbance, psychotic disturbance, mood disturbance, and anxiety; E11.22 Type 2 diabetes mellitus with diabetic chronic kidney disease; R13.10 Dysphagia, unspecified; D63.1 Anemia in chronic kidney disease; Z91.14 Patient's other noncompliance with medication regimen; Z86.73 Personal history of transient ischemic attack (TIA), and cerebral infarction without residual deficits; Z95.1 Presence of aortocoronary bypass graft; Z79.899 Other long term (current) drug therapy; Z79.4 Long term (current) use of insulin; Z79.82 Long term (current) use of aspirin; Z95.810 Presence of automatic (implantable) cardiac defibrillator; Z90.49 Acquired absence of other specified parts of digestive tract
CPT/HCPCS: 36415; 70450; 71045; 74018; 74176; 80048; 80053; 80061; 82550; 82553; 82803; 82962; 83690; 83735; 84484; 85007; 85025; 85610; 85730; 87040; 87116; 93005; 93010; 96374; 99285; G0378; J0360; J0885; J1644; J2543; J7030

== ENCOUNTER 2018-11-13 10:45 | Inpatient (IN) | payer MEDICARE ==
[2018-11-13] MEDS ORDERED: NACL 0.9% 500 ML 500 ML IV ONE ×2 (11:37→13:47)
--- NOTE | 2018-11-13 11:43 | Emergency Department Report ---
HPI - General Chief Complaint: BP Check / Ring removal req Time Seen by Provider: 11/13/18 11:32 - HPI HPI: Room 18 The patient is a 63-year-old male presenting with chief complaint of fatigue. Per EMS there called for "high blood pressure" and upon arrival patient was found to be hypotensive. The patient states he came to the emergency department because "I got tired." Patient denies any other complaints. Patient states he had hemodialysis in totality this morning Location: [See above] Duration: [See above] Quality: "Tired" Severity: Moderate Modifying factors: [see above] Context: [see above] Mode of transportation: [not driving] ED Past Medical Hx - Past Medical History Hx Hypertension: Yes Hx CVA: Yes Hx Congestive Heart Failure: Yes Hx Diabetes: Yes Hx Renal Disease: Yes (TTS dialysis (Dr. Layne)) Additional medical history: A. FIB; Legally Blind. Iron-deficiency Anemia. Hyperparathyroidism. Hypocalcemia. renal osteodystrophy - Surgical History Hx Open Heart Surgery: Yes Hx Pacemaker: Yes (defibrillator) Hx Internal Defibrillator: Yes Hx Appendectomy: Yes Additional Surgical History: AV fistula in the left upper extremity, hemorrhoidectomy - Family History Family history: no significant - Social History Smoking Status: Unknown if ever smoked Substance Use Type: None - Medications Home Medications: Home Medications Medication Instructions Recorded Confirmed Last Taken Type Gabapentin [Neurontin] 100 mg PO QHS #60 capsule 10/02/17 10/29/18 01/19/18 19:00 Rx Acetaminophen [Acetaminophen TAB] 1,000 mg PO Q12H PRN 03/13/18 10/29/18 Unknown History Insulin Aspart [NovoLOG Flexpen] 0 units SUB-Q QWEEK 03/13/18 10/29/18 Unknown History risperiDONE [RisperDAL] 1 mg PO QAM 03/13/18 10/29/18 Unknown History Aspirin EC [Aspirin Enteric Coated 81 mg PO DAILY 03/18/18 10/29/18 Unknown History TAB] Docusate Sodium [Colace CAP] 100 mg PO BID 03/18/18 10/29/18 Unknown History Folic Acid [Folvite] 1 mg PO DAILY 03/18/18 10/29/18 Unknown History ISOSORBIDE MONOnitrate [Imdur ER] 30 mg PO DAILY 03/18/18 10/29/18 Unknown History Metoprolol [Lopressor TAB] 50 mg PO BID 03/18/18 10/29/18 Unknown History Minoxidil [Loniten] 2.5 mg PO BID 03/18/18 10/29/18 Unknown History Sevelamer Carbonate [Renvela] 800 mg PO TIDWM 03/18/18 10/29/18 Unknown History Famotidine [Pepcid] 20 mg PO DAILY #30 tablet 06/09/18 10/29/18 Unknown Rx Sertraline [Zoloft] 100 mg PO QDAY 08/26/18 10/29/18 Unknown History risperiDONE [Risperdal] 0.5 mg PO HS 08/26/18 10/29/18 Unknown History hydrALAZINE [Apresoline TAB] 25 mg PO Q8HR tablet 09/02/18 10/29/18 Unknown Rx Polyethylene Glycol 3350 [Miralax 17 gm PO QDAY #30 packet 11/05/18 Unknown Rx 3350] levoFLOXacin [Levaquin TAB] 500 mg PO Q48HR #3 tablet 11/05/18 Unknown Rx ED Review of Systems ROS: Stated complaint: ALTERED MENTAL STATUS Other details as noted in HPI Constitutional: malaise ENT: denies: throat pain Respiratory: no symptoms reported Cardiovascular: denies: chest pain Endocrine: no symptoms reported Gastrointestinal: denies: abdominal pain Musculoskeletal: denies: back pain Neurological: denies: headache Physical Exam - Physical Exam Vital Signs: Vital Signs 11/13/18 11/13/18 11/13/18 10:52 10:53 10:54 Blood Pressure 78/48 O2 Sat by Pulse 95 100 100 Oximetry 11/13/18 11/13/18 11/13/18 10:55 10:57 10:59 Blood Pressure 78/48 78/48 78/48 O2 Sat by Pulse 100 100 100 Oximetry 11/13/18 11/13/18 11:00 11:01 Blood Pressure 83/45 83/45 O2 Sat by Pulse 100 100 Oximetry Physical Exam: GENERAL: The patient is well-developed well-nourished male lying on stretcher not appearing to be in acute distress. [] HEENT: Normocephalic. Atraumatic. NECK: Supple. Trachea midline CHEST/LUNGS: Clear to auscultation. There is no respiratory distress noted. HEART/CARDIOVASCULAR: Regular. There is no tachycardia. There is no gallop rub or murmur. ABDOMEN: Abdomen is soft, nontender. Patient has normal bowel sounds. There is no abdominal distention. SKIN: There is no rash. There is no edema. There is no diaphoresis. NEURO: The patient is awake and alert. The patient is cooperative. The patient has normal speech MUSCULOSKELETAL: There is no evidence of acute injury. ED Course Vital Signs 11/13/18 11/13/18 11/13/18 10:52 10:53 10:54 Blood Pressure 78/48 O2 Sat by Pulse 95 100 100 Oximetry 11/13/18 11/13/18 11/13/18 10:55 10:57 10:59 Blood Pressure 78/48 78/48 78/48 O2 Sat by Pulse 100 100 100 Oximetry 11/13/18 11/13/18 11:00 11:01 Blood Pressure 83/45 83/45 O2 Sat by Pulse 100 100 Oximetry - Central Line Placement Right Femoral Consent Obtained: verbal consent Time Out Performed: No Patient Placed on Monitor/Pulse Ox: Yes MD Prep: mask, gown, gloves Central Line Prep: Povidone-Iodine 1% Local Anesthesia Used: Lidocaine 1% Amount of Anesthesia Used (mls): 5 Ultrasound Used for Placement: No Central Line Lumen Inserted: triple Bloods Obtained for Lab: No Central Line Position: good blood return, all ports aspirated, flus Dressing Applied: Tegaderm Patient Tolerated Procedure: no complications Complications: none ED Medical Decision Making - Lab Data Result diagrams: 11/13/18 11:43 11/13/18 11:43 Laboratory Tests 11/13/18 11/13/18 11/13/18 11:43 11:43 11:43 WBC 6.2 RBC 3.66 Hgb 9.2 L Hct 29.6 L MCV 81 L MCH 25 L MCHC 31 L RDW 21.4 H Plt Count 189 Lymph % (Auto) 6.0 L Scott % (Auto) 10.4 H Eos % (Auto) 0.6 Baso % (Auto) 0.5 Lymph # 0.4 L Scott # 0.7 Eos # 0.0 Baso # 0.0 Seg Neutrophils % 82.5 H Seg Neutrophils # 5.2 PT INR APTT Sodium 127 L Potassium 3.6 Chloride 89.0 L Carbon Dioxide 24 Anion Gap 18 BUN 31 H Creatinine 4.3 H Estimated GFR 17 BUN/Creatinine Ratio 7 Glucose 83 Calcium 8.6 Total Bilirubin 0.30 AST < 5 L ALT < 5 L Alkaline Phosphatase 67 Total Protein 5.8 L Albumin 2.0 L Albumin/Globulin Ratio 0.5 TSH 4.280 H Free T4 0.80 11/13/18 11:43 WBC RBC Hgb Hct MCV MCH MCHC RDW Plt Count Lymph % (Auto) Scott % (Auto) Eos % (Auto) Baso % (Auto) Lymph # Scott # Eos # Baso # Seg Neutrophils % Seg Neutrophils # PT 16.0 H INR 1.20 H APTT 36.5 Sodium Potassium Chloride Carbon Dioxide Anion Gap BUN Creatinine Estimated GFR BUN/Creatinine Ratio Glucose Calcium Total Bilirubin AST ALT Alkaline Phosphatase Total Protein Albumin Albumin/Globulin Ratio TSH Free T4 - Differential Diagnosis hypovolemia, sepsis, dehydration Critical care attestation.: If time is entered above; I have spent that time in minutes in the direct care of this critically ill patient, excluding procedure time. ED Disposition Clinical Impression: Hypotension, End stage renal disease Disposition: OP ADMIT IP TO THIS HOSP Is pt being admited?: Yes Does the pt Need Aspirin: No Condition: Fair Time of Disposition: 17:33 (hospitalist paged (Dr Alarcon))
[2018-11-13 12:07] LABS: Basophils % (Auto) 0.5 % (0.0-1.8); Eosinophils % (Auto) 0.6 % (0.0-4.3); Hematocrit 29.6 % (35.5-45.6); Hemoglobin 9.2 gm/dl (11.8-15.2); Lymphocytes # (Auto) 0.4 K/mm3 (1.2-5.4); Mean Corpuscular HGB Conc 31 % (32-34); Mean Corpuscular Volume 81 fl (84-94); Monocytes # (Auto) 0.7 K/mm3 (0.0-0.8); Monocytes % (Auto) 10.4 % (0.0-7.3); Platelet Count 189 K/mm3 (140-440); Red Blood Count 3.66 M/mm3 (3.65-5.03)
[2018-11-13 12:14] LABS: Red Cell Distribution Width 21.4 % (13.2-15.2)
[2018-11-13 12:18] LABS: BUN/Creatinine Ratio 7; Blood Urea Nitrogen 31 mg/dL (9-20); Calcium 8.6 mg/dL (8.4-10.2); Hemolysis Index 5
[2018-11-13 12:19] LABS: INR 1.2 (0.87-1.13); Partial Thromboplastin Time 36.5 Sec. (24.2-36.6)
[2018-11-13 12:31] LABS: Free T4 (Free Thyroxine) 0.8 ng/dL (0.76-1.46)
[2018-11-13 12:34] LABS: Alanine Aminotransferase < 5 units/L (7-56)
[2018-11-13] MEDS ORDERED: LEVOPHED DRIP 4 MG/NS 250 ML 4 MG/250 ML BAG IV ONE ×2 (15:54→16:00)
--- NOTE | 2018-11-13 21:05 | History and Physical Report ---
History of Present Illness Date of examination: 11/13/18 Date of admission: 11/13/2018 Chief complaint: Severe weakness History of present illness: 63-year-old AAmale presenting with chief complaint of fatigue. Per EMS there called for "high blood pressure" and upon arrival patient was found to be hypotensive. The patient states he came to the emergency department because of severe weakness. Patient denies any other complaints. Patient states he had full duration hemodialysis this morning.No fever or chills. Past Medical History Hypertension: Yes CVA: Yes Congestive Heart Failure: Yes Diabetes: Yes Renal Disease: Yes (TTS dialysis (Dr. Layne)) Additional medical history: A. FIB; Legally Blind. Iron-deficiency Anemia. Hyperparathyroidism. Hypocalcemia. renal osteodystrophy Surgical History Open Heart Surgery: Yes Pacemaker: Yes (defibrillator) Internal Defibrillator: Yes Appendectomy: Yes Additional Surgical History: AV fistula in the left upper extremity, hemorrhoidectomy Family History Family history: no significant Social History Smoking Status: Unknown if ever smoked Substance Use Type: None Medications Home Medications: Home Medications Medication Instructions Recorded Confirmed Last Taken Type Gabapentin [Neurontin] 100 mg PO QHS #60 capsule 10/02/17 10/29/18 01/19/18 19:00 Rx Acetaminophen [Acetaminophen TAB] 1,000 mg PO Q12H PRN 03/13/18 10/29/18 Unknown History Insulin Aspart [NovoLOG Flexpen] 0 units SUB-Q QWEEK 03/13/18 10/29/18 Unknown History risperiDONE [RisperDAL] 1 mg PO QAM 03/13/18 10/29/18 Unknown History Aspirin EC [Aspirin Enteric Coated 81 mg PO DAILY 03/18/18 10/29/18 Unknown History TAB] Docusate Sodium [Colace CAP] 100 mg PO BID 03/18/18 10/29/18 Unknown History Folic Acid [Folvite] 1 mg PO DAILY 03/18/18 10/29/18 Unknown History ISOSORBIDE MONOnitrate [Imdur ER] 30 mg PO DAILY 03/18/18 10/29/18 Unknown His tory Metoprolol [Lopressor TAB] 50 mg PO BID 03/18/18 10/29/18 Unknown History Minoxidil [Loniten] 2.5 mg PO BID 03/18/18 10/29/18 Unknown History Sevelamer Carbonate [Renvela] 800 mg PO TIDWM 03/18/18 10/29/18 Unknown History Famotidine [Pepcid] 20 mg PO DAILY #30 tablet 06/09/18 10/29/18 Unknown Rx Sertraline [Zoloft] 100 mg PO QDAY 08/26/18 10/29/18 Unknown History risperiDONE [Risperdal] 0.5 mg PO HS 08/26/18 10/29/18 Unknown History hydrALAZINE [Apresoline TAB] 25 mg PO Q8HR tablet 09/02/18 10/29/18 Unknown Rx Polyethylene Glycol 3350 [Miralax 17 gm PO QDAY #30 packet 11/05/18 Unknown Rx 3350] levoFLOXacin [Levaquin TAB] 500 mg PO Q48HR #3 tablet 11/05/18 Unknown Rx Review of Systems ROS: Stated complaint: ALTERED MENTAL STATUS Other details as noted in HPI Constitutional: malaise ENT: denies: throat pain Respiratory: no symptoms reported Cardiovascular: denies: chest pain Endocrine: no symptoms reported Gastrointestinal: denies: abdominal pain Musculoskeletal: denies: back pain Neurological: denies: headache Medications and Allergies Allergies Allergy/AdvReac Type Severity Reaction Status Date / Time haloperidol [From Haldol] AdvReac Unknown Verified 03/13/18 12:10 haloperidol lactate AdvReac Unknown Verified 03/13/18 12:10 [From Haldol] Home Medications Medication Instructions Recorded Confirmed Last Taken Type Gabapentin [Neurontin] 100 mg PO QHS #60 capsule 10/02/17 11/14/18 01/19/18 19:00 Rx Acetaminophen [Acetaminophen TAB] 1,000 mg PO Q12H PRN 03/13/18 11/14/18 Unknown History Insulin Aspart [NovoLOG Flexpen] 0 units SUB-Q QWEEK 03/13/18 11/14/18 Unknown History risperiDONE [RisperDAL] 1 mg PO QAM 03/13/18 11/14/18 Unknown History Aspirin EC [Aspirin Enteric Coated 81 mg PO DAILY 03/18/18 11/14/18 Unknown History TAB] Docusate Sodium [Colace CAP] 100 mg PO BID 03/18/18 11/14/18 Unknown History Folic Acid [Folvite] 1 mg PO DAILY 03/18/18 11/14/18 Unknown History ISOSORBIDE MONOnitrate [Imdur ER] 30 mg PO DAILY 03/18/18 11/14/18 Unknown History Metoprolol [Lopressor TAB] 50 mg PO BID 03/18/18 11/14/18 Unknown History Minoxidil [Loniten] 2.5 mg PO BID 03/18/18 11/14/18 Unknown History Sevelamer Carbonate [Renvela] 800 mg PO TIDWM 03/18/18 11/14/18 Unknown History Famotidine [Pepcid] 20 mg PO DAILY #30 tablet 06/09/18 11/14/18 Unknown Rx Sertraline [Zoloft] 100 mg PO QDAY 08/26/18 11/14/18 Unknown History risperiDONE [Risperdal] 0.5 mg PO HS 08/26/18 11/14/18 Unknown History hydrALAZINE [Apresoline TAB] 25 mg PO Q8HR tablet 09/02/18 11/14/18 Unknown Rx Polyethylene Glycol 3350 [Miralax 17 gm PO QDAY #30 packet 11/05/18 11/14/18 Unknown Rx 3350] levoFLOXacin [Levaquin TAB] 500 mg PO Q48HR #3 tablet 11/05/18 11/14/18 Unknown Rx Active Meds: Active Medications Norepinephrine (Levophed Drip 4 Mg/Ns 250 Ml) 4 mg in 250 mls @ 7.5 mls/hr IV TITR ONE; Protocol Stop: 11/15/18 01:19 Last Titration: 11/13/18 17:32 Dose: 10 mcg/min, 37.5 mls/hr Documented by: Exam - Constitutional Vitals: Temp Pulse Resp BP Pulse Ox 62 8 L 78/48 100 11/13/18 20:17 11/13/18 20:17 11/13/18 20:17 11/13/18 20:17 General appearance: Present: mild distress, well-nourished - EENT Eyes: Present: PERRL ENT: hearing intact, clear oral mucosa - Neck Neck: Present: supple, normal ROM - Respiratory Respiratory effort: normal Respiratory: bilateral: CTA - Cardiovascular Heart rate: 78 Rhythm: regular Heart Sounds: Present: S1 & S2. Absent: rub, click - Extremities Extremities: no ischemia, pulses intact, pulses symmetrical, No edema Extremity abnormal: edema Peripheral Pulses: within normal limits - Abdominal General gastrointestinal: Present: soft, non-tender, non-distended, normal bowel sounds Male genitourinary: Present: normal - Integumentary Integumentary: Present: clear, warm, dry - Musculoskeletal Musculoskeletal: gait normal, strength equal bilaterally - Psychiatric Psychiatric: intact judgment & insight, other (Lethargic) - Neurologic Neurologic: CNII-XII intact, moves all extremities - Allied Health Allied health notes reviewed: nursing, case management Results - Labs CBC & Chem 7: 11/13/18 11:43 11/13/18 11:43 Labs: Laboratory Last Values WBC 6.2 K/mm3 (4.5-11.0) 11/13/18 11:43 RBC 3.66 M/mm3 (3.65-5.03) 11/13/18 11:43 Hgb 9.2 gm/dl (11.8-15.2) L 11/13/18 11:43 Hct 29.6 % (35.5-45.6) L 11/13/18 11:43 MCV 81 fl (84-94) L 11/13/18 11:43 MCH 25 pg (28-32) L 11/13/18 11:43 MCHC 31 % (32-34) L 11/13/18 11:43 RDW 21.4 % (13.2-15.2) H 11/13/18 11:43 Plt Count 189 K/mm3 (140-440) 11/13/18 11:43 Lymph % (Auto) 6.0 % (13.4-35.0) L 11/13/18 11:43 Marshall % (Auto) 10.4 % (0.0-7.3) H 11/13/18 11:43 Eos % (Auto) 0.6 % (0.0-4.3) 11/13/18 11:43 Baso % (Auto) 0.5 % (0.0-1.8) 11/13/18 11:43 Lymph # 0.4 K/mm3 (1.2-5.4) L 11/13/18 11:43 Marshall # 0.7 K/mm3 (0.0-0.8) 11/13/18 11:43 Eos # 0.0 K/mm3 (0.0-0.4) 11/13/18 11:43 Baso # 0.0 K/mm3 (0.0-0.1) 11/13/18 11:43 Seg Neutrophils % 82.5 % (40.0-70.0) H 11/13/18 11:43 Seg Neutrophils # 5.2 K/mm3 (1.8-7.7) 11/13/18 11:43 PT 16.0 Sec. (12.2-14.9) H 11/13/18 11:43 INR 1.20 (0.87-1.13) H 11/13/18 11:43 APTT 36.5 Sec. (24.2-36.6) 11/13/18 11:43 Sodium 127 mmol/L (137-145) L 11/13/18 11:43 Potassium 3.6 mmol/L (3.6-5.0) 11/13/18 11:43 Chloride 89.0 mmol/L (98-107) L 11/13/18 11:43 Carbon Dioxide 24 mmol/L (22-30) 11/13/18 11:43 Anion Gap 18 mmol/L 11/13/18 11:43 BUN 31 mg/dL (9-20) H 11/13/18 11:43 Creatinine 4.3 mg/dL (0.8-1.5) H 11/13/18 11:43 Estimated GFR 17 ml/min 11/13/18 11:43 BUN/Creatinine Ratio 7 % 11/13/18 11:43 Glucose 83 mg/dL (75-100) 11/13/18 11:43 Calcium 8.6 mg/dL (8.4-10.2) 11/13/18 11:43 Total Bilirubin 0.30 mg/dL (0.1-1.2) 11/13/18 11:43 AST < 5 units/L (5-40) L 11/13/18 11:43 ALT < 5 units/L (7-56) L 11/13/18 11:43 Alkaline Phosphatase 67 units/L (35-129) 11/13/18 11:43 Total Protein 5.8 g/dL (6.3-8.2) L 11/13/18 11:43 Albumin 2.0 g/dL (3.9-5) L 11/13/18 11:43 Albumin/Globulin Ratio 0.5 % 11/13/18 11:43 TSH 4.280 mlU/mL (0.270-4.200) H 11/13/18 11:43 Free T4 0.80 ng/dL (0.76-1.46) 11/13/18 11:43 Short CBC 11/13/18 Range/Units 11:43 WBC 6.2 (4.5-11.0) K/mm3 Hgb 9.2 L (11.8-15.2) gm/dl Hct 29.6 L (35.5-45.6) % Plt Count 189 (140-440) K/mm3 BMP 11/13/18 11:43 Sodium 127 L Potassium 3.6 Chloride 89.0 L Carbon Dioxide 24 BUN 31 H Creatinine 4.3 H Glucose 83 Calcium 8.6 Liver Function 11/13/18 Range/Units 11:43 Total Bilirubin 0.30 (0.1-1.2) mg/dL AST < 5 L (5-40) units/L ALT < 5 L (7-56) units/L Alkaline Phosphatase 67 (35-129) units/L Albumin 2.0 L (3.9-5) g/dL Assessment and Plan Assessment and plan: Critical care time 32 min Advance Directives: Yes (Full code) VTE prophylaxis?: Chemical Plan of care discussed with patient/family: Yes - Patient Problems (1) Hypotension Current Visit: Yes Status: Acute Qualifiers: Hypotension type: hemodialysis-associated hypotension Qualified Code(s): I95.3 - Hypotension of hemodialysis Plan to address problem: Possible volume depletion Was given IV boluses with no effect -hence started on IV Levophed (2) Sepsis Current Visit: Yes Status: Acute Qualifiers: Sepsis type: sepsis due to unspecified organism Qualified Code(s): A41.9 - Sepsis, unspecified organism Plan to address problem: Sepsis unlikely but started on Empiric Abx (3) End stage renal disease Current Visit: Yes Status: Chronic Plan to address problem: Nephrology consulted (4) HTN (hypertension) Current Visit: Yes Status: Chronic Qualifiers: Hypertension type: essential hypertension Qualified Code(s): I10 - Essential (primary) hypertension Plan to address problem: Will hold antihypertensives for now (5) GERD (gastroesophageal reflux disease) Current Visit: Yes Status: Chronic Qualifiers: Esophagitis presence: without esophagitis Qualified Code(s): K21.9 - Gastro-esophageal reflux disease without esophagitis Plan to address problem: Cont PPI's (6) Anemia Current Visit: Yes Status: Acute Qualifiers: Anemia type: iron deficiency Plan to address problem: Sec to ESRD and Iron def.Check Iron levels (7) Malnutrition Current Visit: Yes Status: Chronic Qualifiers: Protein-calorie malnutrition severity: severe Plan to address problem: Severe Dietitian consult for supplements (8) DVT prophylaxis Current Visit: Yes Status: Acute Plan to address problem: On Heparin and GI prophylaxis
[2018-11-13] MEDS ORDERED: ZOFRAN IV PRN (21:14)
[2018-11-13] MEDS ORDERED: SODIUM CHLORIDE FLUSH SYRINGE 10 ML IV PRN (21:14)
[2018-11-13] MEDS ORDERED: TYLENOL PO PRN ×2 (21:14→21:38)
[2018-11-13] MEDS ORDERED: DILAUDID IV PRN (21:35)
[2018-11-13] MEDS ORDERED: HumaLOG SUB-Q ONE (21:41)
[2018-11-13] MEDS: APRESOLINE PO SCH (22:01)
[2018-11-13] MEDS: SODIUM CHLORIDE FLUSH SYRINGE 10 ML IV SCH (22:02)
[2018-11-13] MEDS ORDERED: RisperDAL ONE (22:35)
[2018-11-13] MEDS: COLACE PO SCH (23:04)
[2018-11-13] MEDS: RisperDAL PO SCH (23:05)
[2018-11-13] MEDS: HEPARIN SUB-Q SCH (23:05)
[2018-11-13] MEDS: NEURONTIN PO SCH (23:05)
[2018-11-14] MEDS: NACL 0.9% 1000 ML 1,000 ML IV SCH ×2 (02:16→12:47)
[2018-11-14] MEDS ORDERED: PNEUMOVAX 23 IM ONE (02:50)
[2018-11-14] MEDS: LEVOPHED DRIP 4 MG/NS 250 ML 4 MG/250 ML BAG IV SCH ×2 (04:37→22:01)
[2018-11-14] MEDS: APRESOLINE PO SCH ×3 (06:56→21:59)
[2018-11-14 07:03] LABS: Albumin 2.1 g/dL (3.9-5); BUN/Creatinine Ratio 7; Blood Urea Nitrogen 33 mg/dL (9-20); Calcium 8.8 mg/dL (8.4-10.2); Hemolysis Index 1
[2018-11-14 07:11] LABS: Basophils % (Auto) 0.8 % (0.0-1.8); Eosinophils # (Auto) 0.1 K/mm3 (0.0-0.4); Eosinophils % (Auto) 2.7 % (0.0-4.3); Hematocrit 29.6 % (35.5-45.6); Hemoglobin 9.2 gm/dl (11.8-15.2); Lymphocytes # (Auto) 0.5 K/mm3 (1.2-5.4); Lymphocytes % (Auto) 10.6 % (13.4-35.0); Mean Corpuscular HGB Conc 31 % (32-34); Mean Corpuscular Volume 81 fl (84-94); Monocytes # (Auto) 0.5 K/mm3 (0.0-0.8); Monocytes % (Auto) 12.2 % (0.0-7.3); Platelet Count 168 K/mm3 (140-440); Red Blood Count 3.64 M/mm3 (3.65-5.03); Red Cell Distribution Width 21.6 % (13.2-15.2)
[2018-11-14 07:33] LABS: Alanine Aminotransferase < 5 units/L (7-56)
[2018-11-14 07:53] LABS: % Iron Saturation 32.73 %
--- NOTE | 2018-11-14 08:59 | Progress Note ---
Assessment and Plan Assessment and plan: -- Hypotension/septic shock Possible volume depletion, possible sepsis IV boluses, Levophed, empiric antibiotics --Sepsis Sepsis empiric antibiotics, follow cultures Supportive care -- End stage renal disease/on hemodialysis Nephrology consulted, HD per schedule -- HTN (hypertension) Will hold antihypertensives as patient is hypotensive -- GERD (gastroesophageal reflux disease) Cont PPI's -- Anemia of end-stage renal disease/iron deficiency Sec to ESRD and Iron def. closely monitor H&H Procrit during dialysis , transfuse as needed Iron supplements -- Severe Malnutrition/hypoalbuminemia Severe malnutrition/hypoalbuminemia Nutrition supplements, nutrition consult --DVT prophylaxis On Heparin and GI prophylaxis . --full CODE STATUS Monitor closely and adjust management as needed Plan of care is reviewed with the patient's nurse And case management Critical care time 35 minutes History Interval history: Patient seen and examined medical records reviewed Admitted with septic shock on Levophed Patient is lethargic and noncommunicative Mild distress Vital signs reviewed Hospitalist Physical - Constitutional Vitals: Temp Pulse Resp BP Pulse Ox 97.8 F 49 L 9 L 103/56 100 11/14/18 01:41 11/14/18 08:11 11/14/18 08:11 11/14/18 08:11 11/14/18 08:11 General appearance: Present: mild distress, well-nourished, other ( lethargic, noncommunicative) - EENT Eyes: Present: PERRL, EOM intact - Neck Neck: Present: supple, normal ROM - Respiratory Respiratory effort: normal Respiratory: bilateral: diminished, rales, negative: rhonchi, wheezing - Cardiovascular Rhythm: regular Heart Sounds: Present: S1 & S2 - Extremities Extremities: no ischemia, No edema - Abdominal General gastrointestinal: soft, non-tender, non-distended, normal bowel sounds - Integumentary Integumentary: Present: clear, warm - Psychiatric Psychiatric: appropriate mood/affect, cooperative - Neurologic Neurologic: CNII-XII intact, moves all extremities Results - Labs CBC & Chem 7: 11/14/18 06:00 11/14/18 06:25 Labs: Laboratory Last Values WBC 4.2 K/mm3 (4.5-11.0) L 11/14/18 06:00 RBC 3.64 M/mm3 (3.65-5.03) L 11/14/18 06:00 Hgb 9.2 gm/dl (11.8-15.2) L 11/14/18 06:00 Hct 29.6 % (35.5-45.6) L 11/14/18 06:00 MCV 81 fl (84-94) L 11/14/18 06:00 MCH 25 pg (28-32) L 11/14/18 06:00 MCHC 31 % (32-34) L 11/14/18 06:00 RDW 21.6 % (13.2-15.2) H 11/14/18 06:00 Plt Count 168 K/mm3 (140-440) 11/14/18 06:00 Lymph % (Auto) 10.6 % (13.4-35.0) L 11/14/18 06:00 [place] % (Auto) 12.2 % (0.0-7.3) H 11/14/18 06:00 Eos % (Auto) 2.7 % (0.0-4.3) 11/14/18 06:00 Baso % (Auto) 0.8 % (0.0-1.8) 11/14/18 06:00 Lymph # 0.5 K/mm3 (1.2-5.4) L 11/14/18 06:00 [place] # 0.5 K/mm3 (0.0-0.8) 11/14/18 06:00 Eos # 0.1 K/mm3 (0.0-0.4) 11/14/18 06:00 Baso # 0.0 K/mm3 (0.0-0.1) 11/14/18 06:00 Seg Neutrophils % 73.7 % (40.0-70.0) H 11/14/18 06:00 Seg Neutrophils # 3.1 K/mm3 (1.8-7.7) 11/14/18 06:00 PT 16.0 Sec. (12.2-14.9) H 11/13/18 11:43 INR 1.20 (0.87-1.13) H 11/13/18 11:43 APTT 36.5 Sec. (24.2-36.6) 11/13/18 11:43 Sodium 131 mmol/L (137-145) L 11/14/18 06:25 Potassium 3.9 mmol/L (3.6-5.0) 11/14/18 06:25 Chloride 92.6 mmol/L (98-107) L 11/14/18 06:25 Carbon Dioxide 25 mmol/L (22-30) 11/14/18 06:25 Anion Gap 17 mmol/L 11/14/18 06:25 BUN 33 mg/dL (9-20) H 11/14/18 06:25 Creatinine 4.8 mg/dL (0.8-1.5) H 11/14/18 06:25 Estimated GFR 15 ml/min 11/14/18 06:25 BUN/Creatinine Ratio 7 % 11/14/18 06:25 Glucose 83 mg/dL (75-100) 11/14/18 06:25 POC Glucose 71 (70-105) 11/14/18 08:26 Hemoglobin A1c 4.9 % (4-6) 11/13/18 11:43 Calcium 8.8 mg/dL (8.4-10.2) 11/14/18 06:25 Iron 18 ug/dL (49-181) L 11/14/18 06:25 TIBC 55 mcg/dL (250-450) L 11/14/18 06:25 % Saturation 32.73 % 11/14/18 06:25 Transferrin 49 mg/dl (180-329) L 11/14/18 06:25 Total Bilirubin 0.20 mg/dL (0.1-1.2) 11/14/18 06:25 AST < 5 units/L (5-40) L 11/14/18 06:25 ALT < 5 units/L (7-56) L 11/14/18 06:25 Alkaline Phosphatase 73 units/L (35-129) 11/14/18 06:25 Total Protein 5.8 g/dL (6.3-8.2) L 11/14/18 06:25 Albumin 2.1 g/dL (3.9-5) L 11/14/18 06:25 Albumin/Globulin Ratio 0.6 % 11/14/18 06:25 TSH 4.280 mlU/mL (0.270-4.200) H 11/13/18 11:43 Free T4 0.80 ng/dL (0.76-1.46) 11/13/18 11:43 Active Medications - Current Medications Current Medications: Generic Name Dose Route Start Last Admin Trade Name Freq PRN Reason Stop Dose Admin Acetaminophen 650 mg 11/13/18 21:14 Tylenol PO Q4H PRN Pain MILD(1-3)/Fever >100.5/HILL Acetaminophen 1,000 mg 11/13/18 21:38 Tylenol PO Q12H PRN Pain, Mild (1-3) Aspirin 81 mg 11/14/18 10:00 Halfprin Ec PO DAILY [facility] Docusate Sodium 100 mg 11/13/18 22:00 11/13/18 23:04 Colace PO 100 mg BID SANCHEZ Administration Famotidine 20 mg 11/14/18 10:00 Pepcid PO DAILY [facility] Folic Acid 1 mg 11/14/18 10:00 Folvite PO DAILY SANCHEZ Gabapentin 100 mg 11/13/18 22:00 11/13/18 23:05 Neurontin PO 100 mg QHS SANCHEZ Administration Heparin Sodium (Porcine) 5,000 unit 11/13/18 22:00 11/13/18 23:05 Heparin SUB-Q 5,000 unit Q12HR SANCHEZ Administration Hydralazine HCl 25 mg 11/13/18 22:00 11/14/18 06:56 Apresoline PO Not Given Q8HR SANCHEZ Hydromorphone HCl 0.25 mg 11/13/18 21:35 11/14/18 01:39 Dilaudid IV 0.25 mg Q3H PRN Administration Pain, Moderate (4-6) Sodium Chloride 1,000 mls @ 42 mls/hr 11/13/18 21:14 11/14/18 02:16 Nacl 0.9% 1000 Ml IV 11/15/18 07:00 42 mls/hr DIRECT SANCHEZ Administration Norepinephrine 4 mg in 250 mls @ 37.5 mls/hr 11/14/18 04:00 11/14/18 06:18 Levophed Drip 4 Mg/Ns 250 Ml IV 6 mcg/min TITR SANCHEZ 22.5 mls/hr Titration Protocol 10 MCG/MIN Cefepime HCl 1 gm in 100 mls @ 200 mls/hr 11/14/18 10:00 Maxipime/Ns 1 Gm/100 Ml IV Q24HR [facility]Z Protocol Sodium Chloride 1,000 mls @ 999 mls/hr 11/14/18 08:52 Nacl 0.9% 1000 Ml IV 11/14/18 09:52 BOLUS ONE Ondansetron HCl 4 mg 11/13/18 21:14 Zofran IV Q8H PRN Nausea And Vomiting Polyethylene Glycol 17 gm 11/14/18 10:00 Miralax 3350 PO QDAY [facility] Risperidone 1 mg 11/14/18 10:00 Risperdal PO QAM [facility] Risperidone 0.5 mg 11/13/18 22:00 11/13/18 23:05 Risperdal PO 0.5 mg HS [facility]Z Administration Sertraline HCl 100 mg 11/14/18 10:00 Zoloft PO QDAY [facility] Sodium Chloride 10 ml 11/13/18 22:00 11/13/18 22:02 Sodium Chloride Flush Syringe 10 Ml IV 10 ml BID SANCHEZ Administration Sodium Chloride 10 ml 11/13/18 21:14 Sodium Chloride Flush Syringe 10 Ml IV PRN PRN LINE FLUSH
[2018-11-14] MEDS ORDERED: NACL 0.9% 1000 ML 1,000 ML IV ONE (10:00)
--- NOTE | 2018-11-14 10:35 | Consultation ---
History of Present Illness - Reason for Consult Consult date: 11/14/18 Hypothermia, Hypotension Requesting physician: RAJENDRA LATIF (cathy) - History of Present Illness 63 y/o AAM with multiple medial admission admitted from a facility with hypotension and hypothermia. Patient is lethargic but will answer questions appropriately. Given several boluses of fluids last night with no response so started on IV vasopressor therapy with levophed. HR remains in the upper 40's to low 50's and BP with maps in the upper 60's despite being levophed at 4mcgs. He has a loop recorder as seen on his CXR. He did have HD on yesterday and went the entire time per report. He also has a fistula and a vascath. Remainder of the review is negative. Past History Past Medical History: diabetes, ESRD, heart failure, hypertension, other (per ipheral neuropathy and some form of psych issues) Past Surgical History: Other (Fistula placement and vascath placement) Social history: other (lives in a facility) Family history: no significant family history Medications and Allergies Allergies Allergy/AdvReac Type Severity Reaction Status Date / Time haloperidol [From Haldol] AdvReac Unknown Verified 03/13/18 12:10 haloperidol lactate AdvReac Unknown Verified 03/13/18 12:10 [From Haldol] Home Medications Medication Instructions Recorded Confirmed Last Taken Type Gabapentin [Neurontin] 100 mg PO QHS #60 capsule 10/02/17 11/14/18 01/19/18 19:00 Rx Acetaminophen [Acetaminophen TAB] 1,000 mg PO Q12H PRN 03/13/18 11/14/18 Unknown History Insulin Aspart [NovoLOG Flexpen] 0 units SUB-Q QWEEK 03/13/18 11/14/18 Unknown History risperiDONE [RisperDAL] 1 mg PO QAM 03/13/18 11/14/18 Unknown History Aspirin EC [Aspirin Enteric Coated 81 mg PO DAILY 03/18/18 11/14/18 Unknown History TAB] Docusate Sodium [Colace CAP] 100 mg PO BID 03/18/18 11/14/18 Unknown History Folic Acid [Folvite] 1 mg PO DAILY 03/18/18 11/14/18 Unknown History ISOSORBIDE MONOnitrate [Imdur ER] 30 mg PO DAILY 03/18/18 11/14/18 Unknown History Metoprolol [Lopressor TAB] 50 mg PO BID 03/18/18 11/14/18 Unknown History Minoxidil [Loniten] 2.5 mg PO BID 03/18/18 11/14/18 Unknown History Sevelamer Carbonate [Renvela] 800 mg PO TIDWM 03/18/18 11/14/18 Unknown History Famotidine [Pepcid] 20 mg PO DAILY #30 tablet 06/09/18 11/14/18 Unknown Rx Sertraline [Zoloft] 100 mg PO QDAY 08/26/18 11/14/18 Unknown History risperiDONE [Risperdal] 0.5 mg PO HS 08/26/18 11/14/18 Unknown History hydrALAZINE [Apresoline TAB] 25 mg PO Q8HR tablet 09/02/18 11/14/18 Unknown Rx Polyethylene Glycol 3350 [Miralax 17 gm PO QDAY #30 packet 11/05/18 11/14/18 Unknown Rx 3350] levoFLOXacin [Levaquin TAB] 500 mg PO Q48HR #3 tablet 11/05/18 11/14/18 Unknown Rx Active Meds: Active Medications Acetaminophen (Tylenol) 650 mg PO Q4H PRN PRN Reason: Pain MILD(1-3)/Fever >100.5/HILL Acetaminophen (Tylenol) 1,000 mg PO Q12H PRN PRN Reason: Pain, Mild (1-3) Aspirin (Halfprin Ec) 81 mg PO DAILY [facility] Docusate Sodium (Colace) 100 mg PO BID [facility] Last Admin: 11/13/18 23:04 Dose: 100 mg Documented by: Famotidine (Pepcid) 20 mg PO DAILY [facility] Folic Acid (Folvite) 1 mg PO DAILY [facility] Gabapentin (Neurontin) 100 mg PO QHS [facility] Last Admin: 11/13/18 23:05 Dose: 100 mg Documented by: Heparin Sodium (Porcine) (Heparin) 5,000 unit SUB-Q Q12HR [facility] Last Admin: 11/13/18 23:05 Dose: 5,000 unit Documented by: Hydralazine HCl (Apresoline) 25 mg PO Q8HR [facility] Last Admin: 11/14/18 06:56 Dose: Not Given Documented by: Hydrocortisone Sodium Succinate (Solu-Cortef) 100 mg IV Q8HR [facility] Hydromorphone HCl (Dilaudid) 0.25 mg IV Q3H PRN PRN Reason: Pain, Moderate (4-6) Last Admin: 11/14/18 01:39 Dose: 0.25 mg Documented by: Sodium Chloride (Nacl 0.9% 1000 Ml) 1,000 mls @ 42 mls/hr IV DIRECT [facility] Stop: 11/15/18 07:00 Last Admin: 11/14/18 02:16 Dose: 42 mls/hr Documented by: Norepinephrine (Levophed Drip 4 Mg/Ns 250 Ml) 4 mg in 250 mls @ 37.5 mls/hr IV TITR [facility]HEZ; Protocol Last Titration: 11/14/18 06:18 Dose: 6 mcg/min, 22.5 mls/hr Documented by: Cefepime HCl (Maxipime/Ns 1 Gm/100 Ml) 1 gm in 100 mls @ 200 mls/hr IV Q24HR [facility]Z; Protocol Sodium Chloride (Nacl 0.9% 1000 Ml) 1,000 mls @ 999 mls/hr IV BOLUS ONE Stop: 11/14/18 11:00 Ferric Sodium Gluconate Complex 125 mg/ Sodium Chloride 110 mls @ 100 mls/hr IV QDAY [facility] Stop: 11/18/18 11:05 Vancomycin HCl 1,500 mg/ (Sodium Chloride) 530 mls @ 333.333 mls/hr IV ONCE ONE Stop: 11/14/18 12:35 Ondansetron HCl (Zofran) 4 mg IV Q8H PRN PRN Reason: Nausea And Vomiting Polyethylene Glycol (Miralax 3350) 17 gm PO QDAY [facility] Risperidone (Risperdal) 1 mg PO QAM [facility] Risperidone (Risperdal) 0.5 mg PO HS [facility] Last Admin: 11/13/18 23:05 Dose: 0.5 mg Documented by: Sertraline HCl (Zoloft) 100 mg PO QDAY [facility] Sodium Chloride (Sodium Chloride Flush Syringe 10 Ml) 10 ml IV BID [facility] Last Admin: 11/13/18 22:02 Dose: 10 ml Documented by: Sodium Chloride (Sodium Chloride Flush Syringe 10 Ml) 10 ml IV PRN PRN PRN Reason: LINE FLUSH Review of Systems ROS unobtainable: due to mental status Exam - Constitutional Vitals: Temp Pulse Resp BP Pulse Ox 97.8 F 49 L 9 L 103/56 100 11/14/18 01:41 11/14/18 08:11 11/14/18 08:11 11/14/18 08:11 11/14/18 08:11 General appearance: Present: no acute distress, well-nourished, other (lethargic) - EENT Eyes: Present: PERRL ENT: hearing intact - Neck Neck: Present: supple - Respiratory Respiratory effort: normal Respiratory: bilateral: CTA - Cardiovascular Rhythm: irregularly irregular (but bradycardic) - Extremities Extremities: no ischemia - Abdominal General gastrointestinal: Present: soft, non-tender Male genitourinary: Present: deferred - Rectal Rectal Exam: deferred Results - Labs CBC & Chem 7: 11/14/18 06:00 11/14/18 06:25 Labs: Abnormal lab results 11/13/18 11/13/18 11/13/18 Range/Units 11:43 11:43 11:43 WBC (4.5-11.0) K/mm3 RBC (3.65-5.03) M/mm3 Hgb 9.2 L (11.8-15.2) gm/dl Hct 29.6 L (35.5-45.6) % MCV 81 L (84-94) fl MCH 25 L (28-32) pg MCHC 31 L (32-34) % RDW 21.4 H (13.2-15.2) % Lymph % (Auto) 6.0 L (13.4-35.0) % [place] % (Auto) 10.4 H (0.0-7.3) % Lymph # 0.4 L (1.2-5.4) K/mm3 Seg Neutrophils % 82.5 H (40.0-70.0) % PT (12.2-14.9) Sec. INR (0.87-1.13) Sodium 127 L (137-145) mmol/L Chloride 89.0 L (98-107) mmol/L BUN 31 H (9-20) mg/dL Creatinine 4.3 H (0.8-1.5) mg/dL Iron (49-181) ug/dL TIBC (250-450) mcg/dL Transferrin (180-329) mg/dl AST < 5 L (5-40) units/L ALT < 5 L (7-56) units/L Total Protein 5.8 L (6.3-8.2) g/dL Albumin 2.0 L (3.9-5) g/dL TSH 4.280 H (0.270-4.200) mlU/mL 11/13/18 11/14/18 11/14/18 Range/Units 11:43 06:00 06:25 WBC 4.2 L (4.5-11.0) K/mm3 RBC 3.64 L (3.65-5.03) M/mm3 Hgb 9.2 L (11.8-15.2) gm/dl Hct 29.6 L (35.5-45.6) % MCV 81 L (84-94) fl MCH 25 L (28-32) pg MCHC 31 L (32-34) % RDW 21.6 H (13.2-15.2) % Lymph % (Auto) 10.6 L (13.4-35.0) % [place] % (Auto) 12.2 H (0.0-7.3) % Lymph # 0.5 L (1.2-5.4) K/mm3 Seg Neutrophils % 73.7 H (40.0-70.0) % PT 16.0 H (12.2-14.9) Sec. INR 1.20 H (0.87-1.13) Sodium 131 L (137-145) mmol/L Chloride 92.6 L (98-107) mmol/L BUN 33 H (9-20) mg/dL Creatinine 4.8 H (0.8-1.5) mg/dL Iron (49-181) ug/dL TIBC (250-450) mcg/dL Transferrin (180-329) mg/dl AST < 5 L (5-40) units/L ALT < 5 L (7-56) units/L Total Protein 5.8 L (6.3-8.2) g/dL Albumin 2.1 L (3.9-5) g/dL TSH (0.270-4.200) mlU/mL 11/14/18 Range/Units 06:25 WBC (4.5-11.0) K/mm3 RBC (3.65-5.03) M/mm3 Hgb (11.8-15.2) gm/dl Hct (35.5-45.6) % MCV (84-94) fl MCH (28-32) pg MCHC (32-34) % RDW (13.2-15.2) % Lymph % (Auto) (13.4-35.0) % [place] % (Auto) (0.0-7.3) % Lymph # (1.2-5.4) K/mm3 Seg Neutrophils % (40.0-70.0) % PT (12.2-14.9) Sec. INR (0.87-1.13) Sodium (137-145) mmol/L Chloride (98-107) mmol/L BUN (9-20) mg/dL Creatinine (0.8-1.5) mg/dL Iron 18 L (49-181) ug/dL TIBC 55 L (250-450) mcg/dL Transferrin 49 L (180-329) mg/dl AST (5-40) units/L ALT (7-56) units/L Total Protein (6.3-8.2) g/dL Albumin (3.9-5) g/dL TSH (0.270-4.200) mlU/mL Assessment and Plan 63 y/o male admitted with hypotension, hypothermia and bradycardia, etiologies of all 3 unknown. 1. Agree with empiric therapy for possible sepsis given Hypothermia. Unable to tell if blood cultures were drawn from [facility] or not so repeated cultures specifically from that. Will give a one time dose of Vanc and continue Cefepime. 2. Hypotension could be related to sepsis, thyroid issues, or adrenal insufficiency. Will start Hydrocortisone 100mg IVq8. If no improvement, will stop after 1st dosing 3. Continue Levophed for now. Ordered another saline bolus and asked for patient to be typed and screened. 4. Severe Iron deficiency anemia. Will give IV iron for the next 5 days. MCV low at 81. 5. Given bradycardia, will consult [facility] as they have seen in the past. Spoke with Dr. Woodall during rounds 6. Dobb-Braxton placement for nutrition given mental status 7. Hold all antihypertensives and rate controlling agents 8. Overall prognosis is guarded. CCT 31 minutes.
[2018-11-14] MEDS: COLACE PO SCH ×2 (10:42→21:59)
[2018-11-14] MEDS: FOLVITE PO SCH (10:43)
[2018-11-14] MEDS: MIRALAX 3350 PO SCH (10:43)
[2018-11-14] MEDS: HALFPRIN EC PO SCH (10:43)
[2018-11-14] MEDS: PEPCID PO SCH (10:43)
[2018-11-14] MEDS ORDERED: VANCOMYCIN 1,500 MG in NACL 0.9% 500 ML 500 ML IV ONE (11:00)
--- NOTE | 2018-11-14 11:11 | Consultation ---
History of Present Illness Consult date: 11/14/18 Requesting physician: KAYLEE PRITCHARD Consult reason: bradycardia, hypotension History of present illness: This is a 63-year-old male who we were consults to see for bradycardia, hypotension, and hypoferremia. The patient was last seen by [facility] in October 2014. [facility] and has a known past medical history of end-stage renal disease/dialysis, hypertension, hyperlipidemia, atrial fibrillation, diabetes, severe anemia, questionable history of stroke, an implantable loop recorder who presented to [facility] emergency department with complaints of fatigue. In the emergency department the patient was noted to be hypothermic and have hypotension. Of note he had recently undergone dialysis. Past History Past Medical History: anemia, diabetes, ESRD, heart failure, hypertension, other (peripheral neuropathy and some form of psych issues) Past Surgical History: Other (Fistula placement and vascath placement) Social history: other (lives in a facility) Family history: no significant family history Medications and Allergies Allergies Allergy/AdvReac Type Severity Reaction Status Date / Time haloperidol [From Haldol] AdvReac Unknown Verified 03/13/18 12:10 haloperidol lactate AdvReac Unknown Verified 03/13/18 12:10 [From Haldol] Home Medications Medication Instructions Recorded Confirmed Last Taken Type Gabapentin [Neurontin] 100 mg PO QHS #60 capsule 10/02/17 11/14/18 01/19/18 19:00 Rx Acetaminophen [Acetaminophen TAB] 1,000 mg PO Q12H PRN 03/13/18 11/14/18 Unknown History Insulin Aspart [NovoLOG Flexpen] 0 units SUB-Q QWEEK 03/13/18 11/14/18 Unknown History risperiDONE [RisperDAL] 1 mg PO QAM 03/13/18 11/14/18 Unknown History Aspirin EC [Aspirin Enteric Coated 81 mg PO DAILY 03/18/18 11/14/18 Unknown History TAB] Docusate Sodium [Colace CAP] 100 mg PO BID 03/18/18 11/14/18 Unknown History Folic Acid [Folvite] 1 mg PO DAILY 03/18/18 11/14/18 Unknown History ISOSORBIDE MONOnitrate [Imdur ER] 30 mg PO DAILY 03/18/18 11/14/18 Unknown History Metoprolol [Lopressor TAB] 50 mg PO BID 03/18/18 11/14/18 Unknown History Minoxidil [Loniten] 2.5 mg PO BID 03/18/18 11/14/18 Unknown History Sevelamer Carbonate [Renvela] 800 mg PO TIDWM 03/18/18 11/14/18 Unknown History Famotidine [Pepcid] 20 mg PO DAILY #30 tablet 06/09/18 11/14/18 Unknown Rx Sertraline [Zoloft] 100 mg PO QDAY 08/26/18 11/14/18 Unknown History risperiDONE [Risperdal] 0.5 mg PO HS 08/26/18 11/14/18 Unknown History hydrALAZINE [Apresoline TAB] 25 mg PO Q8HR tablet 09/02/18 11/14/18 Unknown Rx Polyethylene Glycol 3350 [Miralax 17 gm PO QDAY #30 packet 11/05/18 11/14/18 Unknown Rx 3350] levoFLOXacin [Levaquin TAB] 500 mg PO Q48HR #3 tablet 11/05/18 11/14/18 Unknown Rx Active Meds: Active Medications Acetaminophen (Tylenol) 650 mg PO Q4H PRN PRN Reason: Pain MILD(1-3)/Fever >100.5/HILL Acetaminophen (Tylenol) 1,000 mg PO Q12H PRN PRN Reason: Pain, Mild (1-3) Aspirin (Halfprin Ec) 81 mg PO DAILY [facility] Last Admin: 11/14/18 10:43 Dose: Not Given Documented by: Docusate Sodium (Colace) 100 mg PO BID [facility] Last Admin: 11/14/18 10:42 Dose: Not Given Documented by: Famotidine (Pepcid) 20 mg PO DAILY [facility] Last Admin: 11/14/18 10:43 Dose: Not Given Documented by: Folic Acid (Folvite) 1 mg PO DAILY [facility] Last Admin: 11/14/18 10:43 Dose: Not Given Documented by: Gabapentin (Neurontin) 100 mg PO QHS [facility] Last Admin: 11/13/18 23:05 Dose: 100 mg Documented by: Heparin Sodium (Porcine) (Heparin) 5,000 unit SUB-Q Q12HR [facility] Last Admin: 11/13/18 23:05 Dose: 5,000 unit Documented by: Hydralazine HCl (Apresoline) 25 mg PO Q8HR [facility] Last Admin: 11/14/18 06:56 Dose: Not Given Documented by: Hydrocortisone Sodium Succinate (Solu-Cortef) 100 mg IV Q8HR [facility] Hydromorphone HCl (Dilaudid) 0.25 mg IV Q3H PRN PRN Reason: Pain, Moderate (4-6) Last Admin: 11/14/18 01:39 Dose: 0.25 mg Documented by: Sodium Chloride (Nacl 0.9% 1000 Ml) 1,000 mls @ 42 mls/hr IV DIRECT [facility]HEZ Stop: 11/15/18 07:00 Last Admin: 11/14/18 02:16 Dose: 42 mls/hr Documented by: Norepinephrine (Levophed Drip 4 Mg/Ns 250 Ml) 4 mg in 250 mls @ 37.5 mls/hr IV TITR [facility]; Protocol Last Titration: 11/14/18 06:18 Dose: 6 mcg/min, 22.5 mls/hr Documented by: Cefepime HCl (Maxipime/Ns 1 Gm/100 Ml) 1 gm in 100 mls @ 200 mls/hr IV Q24HR [facility]; Protocol Ferric Sodium Gluconate Complex 125 mg/ Sodium Chloride 110 mls @ 100 mls/hr IV QDAY [facility] Stop: 11/18/18 11:05 Vancomycin HCl 1,500 mg/ (Sodium Chloride) 530 mls @ 333.333 mls/hr IV ONCE ONE Stop: 11/14/18 12:35 Ondansetron HCl (Zofran) 4 mg IV Q8H PRN PRN Reason: Nausea And Vomiting Polyethylene Glycol (Miralax 3350) 17 gm PO QDAY [facility] Last Admin: 11/14/18 10:43 Dose: Not Given Documented by: Risperidone (Risperdal) 1 mg PO QAM [facility] Risperidone (Risperdal) 0.5 mg PO HS [facility] Last Admin: 11/13/18 23:05 Dose: 0.5 mg Documented by: Sertraline HCl (Zoloft) 100 mg PO QDAY [facility] Sodium Chloride (Sodium Chloride Flush Syringe 10 Ml) 10 ml IV BID [facility] Last Admin: 11/13/18 22:02 Dose: 10 ml Documented by: Sodium Chloride (Sodium Chloride Flush Syringe 10 Ml) 10 ml IV PRN PRN PRN Reason: LINE FLUSH Review of Systems ROS unobtainable: due to mental status Physical Examination Vital Signs Pulse Ox 95 11/13/18 10:52 General appearance: no acute distress Neck: Positive: neck supple, trachea midline Cardiac: Positive: Irregularly Regular, Bradycardia Lungs: Positive: Decreased Breath Sounds Neuro: Positive: Other (patient response to verbal stimuli, speech is inaudible) Abdomen: Positive: Soft, Active Bowel Sounds Male genitourinary: Positive: deferred Extremities: Present: warm. Absent: edema Results 11/14/18 06:00 11/14/18 06:25 Cardiac Enzymes 11/13/18 11/14/18 Range/Units 11:43 06:25 AST < 5 L < 5 L (5-40) units/L Coagulation 11/13/18 Range/Units 11:43 PT 16.0 H (12.2-14.9) Sec. INR 1.20 H (0.87-1.13) APTT 36.5 (24.2-36.6) Sec. CBC 11/13/18 11/14/18 Range/Units 11:43 06:00 WBC 6.2 4.2 L (4.5-11.0) K/mm3 RBC 3.66 3.64 L (3.65-5.03) M/mm3 Hgb 9.2 L 9.2 L (11.8-15.2) gm/dl Hct 29.6 L 29.6 L (35.5-45.6) % Plt Count 189 168 (140-440) K/mm3 Lymph # 0.4 L 0.5 L (1.2-5.4) K/mm3 [place] # 0.7 0.5 (0.0-0.8) K/mm3 Eos # 0.0 0.1 (0.0-0.4) K/mm3 Baso # 0.0 0.0 (0.0-0.1) K/mm3 Comprehensive Metabolic Panel 11/13/18 11/14/18 Range/Units 11:43 06:25 Sodium 127 L 131 L (137-145) mmol/L Potassium 3.6 3.9 (3.6-5.0) mmol/L Chloride 89.0 L 92.6 L (98-107) mmol/L Carbon Dioxide 24 25 (22-30) mmol/L BUN 31 H 33 H (9-20) mg/dL Creatinine 4.3 H 4.8 H (0.8-1.5) mg/dL Glucose 83 83 (75-100) mg/dL Calcium 8.6 8.8 (8.4-10.2) mg/dL AST < 5 L < 5 L (5-40) units/L ALT < 5 L < 5 L (7-56) units/L Alkaline Phosphatase 67 73 (35-129) units/L Total Protein 5.8 L 5.8 L (6.3-8.2) g/dL Albumin 2.0 L 2.1 L (3.9-5) g/dL - Imaging and Cardiology Stress echo: report reviewed (MPI 04/30: Moderate sized fixed inferior wall perfusion defect of moderate severity, moderate size reversible apical defect) Echo: report reviewed (echo 03/08: Mild to moderate LVH, EF 40-45%,) EKG interpretations - Telemetry EKG Rhythm: Marked Bradycardia Assessment and Plan Hypotension Hypothemia Bradycardia/Loop recorder in place Leukopenia Wound/ulcers Chronic AFIB Hypertension History of CVA Legally blind/Diabetes GERD Anemia ESRD/HD Senior Living resident Plan: Patient was last seen in office in 2014 Recommending continue monitoring on telemetry Telemetry currently is Atrial fibrillation with a slow ventricular response heart rates in the 50s No significant pauses noted No clear indication for permanent pacemaker at this time Agree with current management of empiric treatment for sepsis
[2018-11-14] MEDS: FERRLECIT 125 MG in NACL 0.9% 100 ML IV SCH (12:10)
[2018-11-14] MEDS: SODIUM CHLORIDE FLUSH SYRINGE 10 ML IV SCH ×2 (12:11→22:03)
[2018-11-14] MEDS: MAXIPIME/NS 1 GM/100 ML 1 GM/100 ML BAG IV SCH (12:11)
[2018-11-14] MEDS: HEPARIN SUB-Q SCH ×2 (12:13→21:59)
--- NOTE | 2018-11-14 12:23 | XRay Report ---
ABDOMEN RADIOGRAPH INDICATION: Feeding tube placement. COMPARISON: 10/29/2018 FINDINGS: Frontal abdominal radiograph now demonstrates mildly retracted Dobbhoff tube with its tip in the proximal to mid stomach, parallel to the lower rib, directed towards the left flank and may be further advanced by approximately 10 cm to attempt tip placement distally, if so warranted. Nonobstructive bowel gas pattern. Slightly prominent markings at the left lung base with mild cardiomegaly and few other artifacts noted. Mild lower thoracic spine degenerative spurring. CONCLUSION: Dobbhoff tube tip in the stomach with few other findings, as described. Thank you for the opportunity to participate in this patient's care.
--- NOTE | 2018-11-14 12:27 | XRay Report ---
PORTABLE CHEST INDICATION: Hypotension, bradycardia. COMPARISON: 10/31/2018 FINDINGS: Portable, frontal chest radiograph suggests new mild haziness throughout both lungs, presumed congestive. Subtle indistinctness of the hemidiaphragms also not excluded for minimal pleural fluid. Slight fluid or thickening along the right minor fissure also again seen. Stable cardiomediastinal silhouette/mild cardiomegaly, left axillary stents and surgical clips, right sided central catheter tip about the cavoatrial junction and a Dobbhoff tube extending into the stomach with possible intrinsic stylet. Few extrinsic artifacts. Lower thoracic spine degenerative spurring. CONCLUSION: Mild pulmonary edema appearance radiographically with cardiomegaly and various supporting/iatrogenic devices again noted, as described. Please correlate. Thank you for the opportunity to participate in this patient's care.
[2018-11-14] MEDS: ZOLOFT PO SCH (12:53)
[2018-11-14] MEDS: RisperDAL PO SCH ×2 (12:53→21:58)
[2018-11-14] MEDS ORDERED: D50W (25GM) Syringe IV PRN (13:39)
[2018-11-14] MEDS ORDERED: D50W (25GM) Syringe IV ONE (13:39)
[2018-11-14] MEDS ORDERED: SIMPLE SYRUP FEEDTUBE PRN ×2 (13:40)
[2018-11-14] MEDS ORDERED: PANCREAZE DR 10,500 UNIT FEEDTUBE PRN (13:40)
[2018-11-14] MEDS ORDERED: SODIUM BICARBONATE FEEDTUBE PRN (13:40)
--- NOTE | 2018-11-14 14:16 | Progress Note ---
Assessment and Plan - Patient Problems (1) End stage renal disease Current Visit: Yes Status: Chronic Plan to address problem: End-stage renal disease Access right IJ PermCath Still with hypotension on pressors will plan for dialysis session tomorrow Electrolytes within normal limits (2) Anemia Current Visit: Yes Status: Acute Qualifiers: Anemia type: iron deficiency Plan to address problem: Moderate anemia hemoglobin 9.2 g per DL Iron studies reviewed no significant iron deficiency Anemia secondary to chronic kidney disease We'll give Epogen 10,000 units with dialysis (3) Hypotension Current Visit: Yes Status: Acute Qualifiers: Hypotension type: hemodialysis-associated hypotension Qualified Code(s): I95.3 - Hypotension of hemodialysis Plan to address problem: Hypotension with altered mental status As received several boluses of fluid chest x-ray pulmonary congestion discontinue intravenous fluid hydration wean pressors as tolerated (4) Bradycardia Current Visit: No Status: Acute Plan to address problem: Bradycardia had with has been between 45-55 during my evaluation Obtain EKG Further workup by cardiology Subjective Interval history: 63 year old Gentleman with medical history signficant for HTN, DM type II, CAD,ESRD on hemodialysis Saturday at [facility] he has a right internal jugular tunneled dialysis catheter and also a left arm AV fistula he has altered mental status and was found to be hypotensive and was unable to have dialysis yesterday he received fluid boluses in the emergency room was started on Levophed for concern for infection Review of systems Unobtainable as patient is currently altered and drowsy Objective - Vital Signs Vital signs: Vital Signs - 12hr 11/14/18 11/14/18 11/14/18 02:09 03:15 03:45 Temperature Pulse Rate Pulse Rate [ 54 L 53 L None] Pulse Rate [ Right Radial] Respiratory 8 L 10 L 10 L Rate Blood Pressure 86/52 105/55 O2 Sat by Pulse 99 100 Oximetry 11/14/18 11/14/18 11/14/18 04:00 04:15 04:22 Temperature Pulse Rate Pulse Rate [ 51 L 52 L None] Pulse Rate [ 54 L Right Radial] Respiratory 13 10 L 12 Rate Blood Pressure 93/60 104/59 O2 Sat by Pulse 100 99 100 Oximetry 11/14/18 11/14/18 11/14/18 04:30 04:45 05:00 Temperature Pulse Rate Pulse Rate [ 54 L 54 L 53 L None] Pulse Rate [ Right Radial] Respiratory 8 L 9 L 8 L Rate Blood Pressure 108/63 109/70 111/59 O2 Sat by Pulse 99 99 99 Oximetry 11/14/18 11/14/18 11/14/18 05:02 05:11 05:21 Temperature Pulse Rate 55 L 57 L 54 L Pulse Rate [ None] Pulse Rate [ Right Radial] Respiratory 11 L 10 L 10 L Rate Blood Pressure 106/73 O2 Sat by Pulse 100 100 100 Oximetry 11/14/18 11/14/18 11/14/18 05:30 05:41 05:51 Temperature Pulse Rate 58 L 56 L 61 Pulse Rate [ None] Pulse Rate [ Right Radial] Respiratory 11 L 9 L 9 L Rate Blood Pressure 112/65 112/65 98/55 O2 Sat by Pulse 98 100 100 Oximetry 11/14/18 11/14/18 11/14/18 06:00 06:11 06:21 Temperature Pulse Rate 58 L 56 L 55 L Pulse Rate [ None] Pulse Rate [ Right Radial] Respiratory 10 L 10 L 8 L Rate Blood Pressure 95/54 95/54 100/51 O2 Sat by Pulse 96 99 99 Oximetry 11/14/18 11/14/18 11/14/18 06:30 06:41 06:51 Temperature Pulse Rate 51 L 53 L 53 L Pulse Rate [ None] Pulse Rate [ Right Radial] Respiratory 9 L 8 L 10 L Rate Blood Pressure 113/63 100/51 106/65 O2 Sat by Pulse 97 100 100 Oximetry 11/14/18 11/14/18 11/14/18 06:56 07:00 07:11 Temperature Pulse Rate 54 L 52 L 56 L Pulse Rate [ None] Pulse Rate [ Right Radial] Respiratory 13 8 L Rate Blood Pressure 95/54 102/65 102/65 O2 Sat by Pulse 100 99 Oximetry 11/14/18 11/14/18 11/14/18 07:21 07:30 07:41 Temperature Pulse Rate 57 L 57 L 54 L Pulse Rate [ None] Pulse Rate [ Right Radial] Respiratory 11 L 9 L 10 L Rate Blood Pressure 117/60 89/58 89/58 O2 Sat by Pulse 100 99 100 Oximetry 11/14/18 11/14/18 11/14/18 07:51 08:00 08:11 Temperature 94.7 F L Pulse Rate 58 L 56 L 49 L Pulse Rate [ None] Pulse Rate [ 52 L Right Radial] Respiratory 8 L 12 9 L Rate Blood Pressure 84/63 103/56 103/56 O2 Sat by Pulse 100 100 100 Oximetry 11/14/18 11/14/18 11/14/18 08:30 08:45 09:00 Temperature Pulse Rate 55 L 55 L 49 L Pulse Rate [ None] Pulse Rate [ Right Radial] Respiratory 8 L 9 L 8 L Rate Blood Pressure 106/61 96/64 97/58 O2 Sat by Pulse 98 99 99 Oximetry 11/14/18 11/14/18 11/14/18 09:15 09:30 09:45 Temperature Pulse Rate 57 L 54 L 49 L Pulse Rate [ None] Pulse Rate [ Right Radial] Respiratory 7 L 9 L 7 L Rate Blood Pressure 111/66 110/62 108/56 O2 Sat by Pulse 98 99 99 Oximetry 11/14/18 11/14/18 11/14/18 10:00 10:15 10:31 Temperature Pulse Rate 55 L 59 L 52 L Pulse Rate [ None] Pulse Rate [ 52 L Right Radial] Respiratory 7 L 8 L 8 L Rate Blood Pressure 100/62 119/64 99/51 O2 Sat by Pulse 100 97 98 Oximetry 11/14/18 11/14/18 11/14/18 10:45 11:01 11:15 Temperature Pulse Rate 55 L 45 L 64 Pulse Rate [ None] Pulse Rate [ Right Radial] Respiratory 8 L 7 L 8 L Rate Blood Pressure 93/56 105/60 114/69 O2 Sat by Pulse 98 99 96 Oximetry 11/14/18 11/14/18 11/14/18 11:30 11:45 12:00 Temperature 94.7 F L Pulse Rate 55 L 56 L 58 L Pulse Rate [ 53 L None] Pulse Rate [ Right Radial] Respiratory 7 L 9 L 7 L Rate Blood Pressure 114/69 121/66 106/65 O2 Sat by Pulse 100 98 96 Oximetry 11/14/18 12:15 Temperature Pulse Rate 59 L Pulse Rate [ None] Pulse Rate [ Right Radial] Respiratory 7 L Rate Blood Pressure 105/64 O2 Sat by Pulse 97 Oximetry - General Appearance General appearance: obese EENT: ATNC, PERRL Neck: no JVD Respiratory: Present: Clear to Ascultation Cardiology: regular, S1S2 Gastrointestinal: normal, normoactive bowel sounds Integumentary: no rash Neurologic: no focal deficit, alert and oriented x3, CN 3-12 intact Musculoskeletal: clubbing Psychiatric: mood/affect appropriate - Lab 11/14/18 06:00 11/14/18 06:25 Most recent lab results Calcium 8.8 mg/dL (8.4-10.2) 11/14/18 06:25 Medications & Allergies - Medications Allergies/Adverse Reactions: Allergies haloperidol [From Haldol] Adverse Reaction (Verified 03/13/18 12:10) Unknown haloperidol lactate [From Haldol] Adverse Reaction (Verified 03/13/18 12:10) Unknown Home Medications: Home Medications Medication Instructions Recorded Confirmed Last Taken Type Gabapentin [Neurontin] 100 mg PO QHS #60 capsule 10/02/17 11/14/18 01/19/18 19:00 Rx Acetaminophen [Acetaminophen TAB] 1,000 mg PO Q12H PRN 03/13/18 11/14/18 Unknown History Insulin Aspart [NovoLOG Flexpen] 0 units SUB-Q QWEEK 03/13/18 11/14/18 Unknown History risperiDONE [RisperDAL] 1 mg PO QAM 03/13/18 11/14/18 Unknown History Aspirin EC [Aspirin Enteric Coated 81 mg PO DAILY 03/18/18 11/14/18 Unknown History TAB] Docusate Sodium [Colace CAP] 100 mg PO BID 03/18/18 11/14/18 Unknown History Folic Acid [Folvite] 1 mg PO DAILY 03/18/18 11/14/18 Unknown History ISOSORBIDE MONOnitrate [Imdur ER] 30 mg PO DAILY 03/18/18 11/14/18 Unknown History Metoprolol [Lopressor TAB] 50 mg PO BID 03/18/18 11/14/18 Unknown History Minoxidil [Loniten] 2.5 mg PO BID 03/18/18 11/14/18 Unknown History Sevelamer Carbonate [Renvela] 800 mg PO TIDWM 03/18/18 11/14/18 Unknown History Famotidine [Pepcid] 20 mg PO DAILY #30 tablet 06/09/18 11/14/18 Unknown Rx Sertraline [Zoloft] 100 mg PO QDAY 08/26/18 11/14/18 Unknown History risperiDONE [Risperdal] 0.5 mg PO HS 08/26/18 11/14/18 Unknown History hydrALAZINE [Apresoline TAB] 25 mg PO Q8HR tablet 09/02/18 11/14/18 Unknown Rx Polyethylene Glycol 3350 [Miralax 17 gm PO QDAY #30 packet 11/05/18 11/14/18 Unknown Rx 3350] levoFLOXacin [Levaquin TAB] 500 mg PO Q48HR #3 tablet 11/05/18 11/14/18 Unknown Rx Active Medications: Generic Name Dose Route Start Last Admin Trade Name Freq PRN Reason Stop Dose Admin Acetaminophen 650 mg 11/13/18 21:14 Tylenol PO Q4H PRN Pain MILD(1-3)/Fever >100.5/HILL Acetaminophen 1,000 mg 11/13/18 21:38 Tylenol PO Q12H PRN Pain, Mild (1-3) Lipase/Protease/Amylase 1 each 11/14/18 13:[address] 10,500 Unit FEEDTUBE PRN PRN For Clogged Feeding Tube Aspirin 81 mg 11/14/18 10:00 11/14/18 10:43 Halfprin Ec PO Not Given DAILY [facility] Dextrose 25 ml 11/14/18 13:39 D50w (25gm) Syringe IV PRN PRN Hypoglycemia Docusate Sodium 100 mg 11/13/18 22:00 11/14/18 10:42 Colace PO Not Given BID [facility] Famotidine 20 mg 11/14/18 10:00 11/14/18 10:43 Pepcid PO Not Given DAILY [facility] Folic Acid 1 mg 11/14/18 10:00 11/14/18 10:43 Folvite PO Not Given DAILY [facility] Gabapentin 100 mg 11/13/18 22:00 11/13/18 23:05 Neurontin PO 100 mg QHS SANCHEZ Administration Heparin Sodium (Porcine) 5,000 unit 11/13/18 22:00 11/14/18 12:13 Heparin SUB-Q 5,000 unit Q12HR SANCHEZ Administration Hydralazine HCl 25 mg 11/13/18 22:00 11/14/18 06:56 Apresoline PO Not Given Q8HR SANCHEZ Hydrocortisone Sodium Succinate 100 mg 11/14/18 11:00 11/14/18 11:14 Solu-Cortef IV 100 mg Q8HR SANCHEZ Administration Hydromorphone HCl 0.25 mg 11/13/18 21:35 11/14/18 01:39 Dilaudid IV 0.25 mg Q3H PRN Administration Pain, Moderate (4-6) Sodium Chloride 1,000 mls @ 42 mls/hr 11/13/18 21:14 11/14/18 12:47 Nacl 0.9% 1000 Ml IV 11/15/18 07:00 42 mls/hr DIRECT SANCHEZ Administration Norepinephrine 4 mg in 250 mls @ 37.5 mls/hr 11/14/18 04:00 11/14/18 12:52 Levophed Drip 4 Mg/Ns 250 Ml IV 2 mcg/min TITR SANCHEZ 7.5 mls/hr Titration Protocol 10 MCG/MIN Cefepime HCl 1 gm in 100 mls @ 200 mls/hr 11/14/18 10:00 11/14/18 12:11 Maxipime/Ns 1 Gm/100 Ml IV 200 mls/hr Q24HR SANCHEZ Administration Protocol Ferric Sodium Gluconate 110 mls @ 100 mls/hr 11/14/18 11:00 11/14/18 12:10 Complex 125 mg/ Sodium IV 11/18/18 11:05 100 mls/hr Chloride QDAY SANCHEZ Administration Ondansetron HCl 4 mg 11/13/18 21:14 Zofran IV Q8H PRN Nausea And Vomiting Polyethylene Glycol 17 gm 11/14/18 10:00 11/14/18 10:43 Miralax 3350 PO Not Given QDAY SANCHEZ Risperidone 1 mg 11/14/18 10:00 11/14/18 12:53 Risperdal PO Not Given QAM SANCHEZ Risperidone 0.5 mg 11/13/18 22:00 11/13/18 23:05 Risperdal PO 0.5 mg HS SANCHEZ Administration Sertraline HCl 100 mg 11/14/18 10:00 11/14/18 12:53 Zoloft PO Not Given QDAY SANCHEZ Simple Syrup 15 ml 11/14/18 13:40 Simple Syrup FEEDTUBE PRN PRN Hypoglycemia Simple Syrup 30 ml 11/14/18 13:40 Simple Syrup FEEDTUBE PRN PRN Hypoglycemia Sodium Bicarbonate 325 mg 11/14/18 13:40 Sodium Bicarbonate FEEDTUBE PRN PRN For Clogged Feeding Tube Sodium Chloride 10 ml 11/13/18 22:00 11/14/18 12:11 Sodium Chloride Flush Syringe 10 Ml IV 10 ml BID SANCHEZ Administration Sodium Chloride 10 ml 11/13/18 21:14 Sodium Chloride Flush Syringe 10 Ml IV PRN PRN LINE FLUSH
--- NOTE | 2018-11-14 14:39 | Consultation ---
History of Present Illness - Reason for Consult end stage renal disease - History of Present Illness 63 year old Gentleman with medical history signficant for HTN, DM type II, CAD,ESRD on hemodialysis Saturday at [facility] he has a right internal jugular tunneled dialysis catheter and also a left arm AV fistula he has altered mental status and was found to be hypotensive and was unable to have dialysis yesterday he received fluid boluses in the emergency room was started on Levophed for concern for infection Review of systems Unobtainable as patient is currently altered and drowsy Past History Past Medical History: anemia, diabetes, ESRD, heart failure, hypertension, other (peripheral neuropathy and some form of psych issues) Past Surgical History: Other (Fistula placement and vascath placement) Social history: other (lives in a facility) Family history: no significant family history Medications and Allergies Allergies Allergy/AdvReac Type Severity Reaction Status Date / Time haloperidol [From Haldol] AdvReac Unknown Verified 03/13/18 12:10 haloperidol lactate AdvReac Unknown Verified 03/13/18 12:10 [From Haldol] Home Medications Medication Instructions Recorded Confirmed Last Taken Type Gabapentin [Neurontin] 100 mg PO QHS #60 capsule 10/02/17 11/14/18 01/19/18 19:00 Rx Acetaminophen [Acetaminophen TAB] 1,000 mg PO Q12H PRN 03/13/18 11/14/18 Unknown History Insulin Aspart [NovoLOG Flexpen] 0 units SUB-Q QWEEK 03/13/18 11/14/18 Unknown History risperiDONE [RisperDAL] 1 mg PO QAM 03/13/18 11/14/18 Unknown History Aspirin EC [Aspirin Enteric Coated 81 mg PO DAILY 03/18/18 11/14/18 Unknown History TAB] Docusate Sodium [Colace CAP] 100 mg PO BID 03/18/18 11/14/18 Unknown History Folic Acid [Folvite] 1 mg PO DAILY 03/18/18 11/14/18 Unknown History ISOSORBIDE MONOnitrate [Imdur ER] 30 mg PO DAILY 03/18/18 11/14/18 Unknown History Metoprolol [Lopressor TAB] 50 mg PO BID 03/18/18 11/14/18 Unknown History Minoxidil [Loniten] 2.5 mg PO BID 03/18/18 11/14/18 Unknown History Sevelamer Carbonate [Renvela] 800 mg PO TIDWM 03/18/18 11/14/18 Unknown History Famotidine [Pepcid] 20 mg PO DAILY #30 tablet 06/09/18 11/14/18 Unknown Rx Sertraline [Zoloft] 100 mg PO QDAY 08/26/18 11/14/18 Unknown History risperiDONE [Risperdal] 0.5 mg PO HS 08/26/18 11/14/18 Unknown History hydrALAZINE [Apresoline TAB] 25 mg PO Q8HR tablet 09/02/18 11/14/18 Unknown Rx Polyethylene Glycol 3350 [Miralax 17 gm PO QDAY #30 packet 11/05/18 11/14/18 Unknown Rx 3350] levoFLOXacin [Levaquin TAB] 500 mg PO Q48HR #3 tablet 11/05/18 11/14/18 Unknown Rx Active Meds: Active Medications Acetaminophen (Tylenol) 650 mg PO Q4H PRN PRN Reason: Pain MILD(1-3)/Fever >100.5/HILL Acetaminophen (Tylenol) 1,000 mg PO Q12H PRN PRN Reason: Pain, Mild (1-3) Lipase/Protease/Amylase (Pancreaze Dr 10,500 Unit) 1 each FEEDTUBE PRN PRN PRN Reason: For Clogged Feeding Tube Aspirin (Halfprin Ec) 81 mg PO DAILY [facility] Last Admin: 11/14/18 10:43 Dose: Not Given Documented by: Dextrose (D50w (25gm) Syringe) 25 ml IV PRN PRN PRN Reason: Hypoglycemia Docusate Sodium (Colace) 100 mg PO BID [facility] Last Admin: 11/14/18 10:42 Dose: Not Given Documented by: Famotidine (Pepcid) 20 mg PO DAILY [facility] Last Admin: 11/14/18 10:43 Dose: Not Given Documented by: Folic Acid (Folvite) 1 mg PO DAILY [facility] Last Admin: 11/14/18 10:43 Dose: Not Given Documented by: Gabapentin (Neurontin) 100 mg PO QHS [facility] Last Admin: 11/13/18 23:05 Dose: 100 mg Documented by: Heparin Sodium (Porcine) (Heparin) 5,000 unit SUB-Q Q12HR [facility] Last Admin: 11/14/18 12:13 Dose: 5,000 unit Documented by: Hydralazine HCl (Apresoline) 25 mg PO Q8HR [facility] Last Admin: 11/14/18 14:04 Dose: Not Given Documented by: Hydrocortisone Sodium Succinate (Solu-Cortef) 100 mg IV Q8HR [facility] Last Admin: 11/14/18 11:14 Dose: 100 mg Documented by: Hydromorphone HCl (Dilaudid) 0.25 mg IV Q3H PRN PRN Reason: Pain, Moderate (4-6) Last Admin: 11/14/18 01:39 Dose: 0.25 mg Documented by: Norepinephrine (Levophed Drip 4 Mg/Ns 250 Ml) 4 mg in 250 mls @ 37.5 mls/hr IV TITR [facility]; Protocol Last Titration: 11/14/18 12:52 Dose: 2 mcg/min, 7.5 mls/hr Documented by: Cefepime HCl (Maxipime/Ns 1 Gm/100 Ml) 1 gm in 100 mls @ 200 mls/hr IV Q24HR [facility]; Protocol Last Admin: 11/14/18 12:11 Dose: 200 mls/hr Documented by: Ferric Sodium Gluconate Complex 125 mg/ Sodium Chloride 110 mls @ 100 mls/hr IV QDAY [facility] Stop: 11/18/18 11:05 Last Admin: 11/14/18 12:10 Dose: 100 mls/hr Documented by: Ondansetron HCl (Zofran) 4 mg IV Q8H PRN PRN Reason: Nausea And Vomiting Polyethylene Glycol (Miralax 3350) 17 gm PO QDAY [facility] Last Admin: 11/14/18 10:43 Dose: Not Given Documented by: Risperidone (Risperdal) 1 mg PO QAM [facility] Last Admin: 11/14/18 12:53 Dose: Not Given Documented by: Risperidone (Risperdal) 0.5 mg PO HS [facility] Last Admin: 11/13/18 23:05 Dose: 0.5 mg Documented by: Sertraline HCl (Zoloft) 100 mg PO QDAY [facility] Last Admin: 11/14/18 12:53 Dose: Not Given Documented by: Simple Syrup (Simple Syrup) 15 ml FEEDTUBE PRN PRN PRN Reason: Hypoglycemia Simple Syrup (Simple Syrup) 30 ml FEEDTUBE PRN PRN PRN Reason: Hypoglycemia Sodium Bicarbonate (Sodium Bicarbonate) 325 mg FEEDTUBE PRN PRN PRN Reason: For Clogged Feeding Tube Sodium Chloride (Sodium Chloride Flush Syringe 10 Ml) 10 ml IV BID SANCHEZ Last Admin: 11/14/18 12:11 Dose: 10 ml Documented by: Sodium Chloride (Sodium Chloride Flush Syringe 10 Ml) 10 ml IV PRN PRN PRN Reason: LINE FLUSH Review of Systems ROS unobtainable: due to mental status Exam - Vital Signs Vital signs: Vital Signs Pulse Ox 95 11/13/18 10:52 - General Appearance General appearance: obese, chronically ill, frail EENT: ATNC, mucous membranes moist, other (artificial right eye , ) Neck: Present: neck supple Respiratory: Decreased Breath Sounds Heart: regular, bradycardia, S1S2 Gastrointestinal: Present: normal, normoactive bowel sounds Integumentary: no rash Neurologic: confused, obtunded Psychiatric: mood/affect appropriate Results - Lab Results 11/14/18 06:00 11/14/18 06:25 Most recent lab results Calcium 8.8 mg/dL (8.4-10.2) 11/14/18 06:25 - Image Kidney/bladder ultrasound: other (I reviewed chest x-ray with bilateral patchy opacities pulmonary congestion) Assessment and Plan - Patient Problems (1) End stage renal disease Current Visit: Yes Status: Chronic Plan to address problem: End-stage renal disease Access right IJ PermCath Still with hypotension on pressors will plan for dialysis session tomorrow Electrolytes within normal limits (2) Anemia Current Visit: Yes Status: Acute Qualifiers: Anemia type: iron deficiency Plan to address problem: Moderate anemia hemoglobin 9.2 g per DL Iron studies reviewed no significant iron deficiency Anemia secondary to chronic kidney disease We'll give Epogen 10,000 units with dialysis (3) Hypotension Current Visit: Yes Status: Acute Qualifiers: Hypotension type: hemodialysis-associated hypotension Qualified Code(s): I95.3 - Hypotension of hemodialysis Plan to address problem: Hypotension with altered mental status As received several boluses of fluid chest x-ray pulmonary congestion discontinue intravenous fluid hydration wean pressors as tolerated (4) Bradycardia Current Visit: No Status: Acute Plan to address problem: Bradycardia had with has been between 45-55 during my evaluation Obtain EKG Further workup by cardiology
[2018-11-14] MEDS: NEURONTIN PO SCH (21:58)
[2018-11-15] MEDS: APRESOLINE PO SCH ×3 (06:17→23:27)
[2018-11-15] MEDS ORDERED: SODIUM BICARBONATE FEEDTUBE PRN (08:07)
[2018-11-15] MEDS ORDERED: SIMPLE SYRUP FEEDTUBE PRN ×2 (08:07)
[2018-11-15] MEDS ORDERED: PANCREAZE DR 10,500 UNIT FEEDTUBE PRN (08:07)
--- NOTE | 2018-11-15 09:17 | Progress Note ---
Assessment and Plan Assessment and plan: -- End stage renal disease/on hemodialysis Nephrology consulted, HD per schedule --Hypernatremia: Sodium levels improving continue current management -- Hypotension/septic shock Possible volume depletion, possible sepsis IV boluses, s/p Levophed, empiric antibiotics --Sepsis Sepsis empiric antibiotics, follow cultures Supportive care -- HTN (hypertension) Will hold antihypertensives as patient is hypotensive -- GERD (gastroesophageal reflux disease) Cont PPI's -- Anemia of end-stage renal disease/iron deficiency Sec to ESRD and Iron def. closely monitor H&H Procrit during dialysis , transfuse as needed Iron supplements -- Severe Malnutrition/hypoalbuminemia Severe malnutrition/hypoalbuminemia Nutrition supplements, nutrition consult --DVT prophylaxis On Heparin and GI prophylaxis . --full CODE STATUS Monitor closely and adjust management as needed Plan of care is reviewed with the patient's nurse And case management Critical care time 31 minutes History Interval history: Patient seen and examined medical records reviewed Patient is alert and awake and responding appropriately Off Levophed, vital signs reviewed No new events reported by the nursing Hospitalist Physical - Constitutional Vitals: Temp Pulse Resp BP Pulse Ox 97.8 F 63 6 L 103/56 98 11/15/18 02:29 11/15/18 07:45 11/15/18 07:45 11/15/18 07:45 11/15/18 07:45 General appearance: Present: no acute distress, well-nourished, other (responds appropriately) - EENT Eyes: Present: PERRL, EOM intact - Neck Neck: Present: supple, normal ROM - Respiratory Respiratory effort: normal Respiratory: bilateral: diminished, negative: rales, rhonchi, wheezing - Cardiovascular Rhythm: regular Heart Sounds: Present: S1 & S2 - Extremities Extremities: no ischemia, No edema - Abdominal General gastrointestinal: soft, non-tender, non-distended, normal bowel sounds - Integumentary Integumentary: Present: clear, warm - Psychiatric Psychiatric: appropriate mood/affect, cooperative, other (confused at times) - Neurologic Neurologic: moves all extremities Results - Labs CBC & Chem 7: 11/15/18 03:51 11/15/18 03:51 Labs: Laboratory Last Values WBC 4.2 K/mm3 (4.5-11.0) L 11/14/18 06:00 RBC 3.64 M/mm3 (3.65-5.03) L 11/14/18 06:00 Hgb 9.2 gm/dl (11.8-15.2) L 11/14/18 06:00 Hct 29.6 % (35.5-45.6) L 11/14/18 06:00 MCV 81 fl (84-94) L 11/14/18 06:00 MCH 25 pg (28-32) L 11/14/18 06:00 MCHC 31 % (32-34) L 11/14/18 06:00 RDW 21.6 % (13.2-15.2) H 11/14/18 06:00 Plt Count 168 K/mm3 (140-440) 11/14/18 06:00 Lymph % (Auto) 10.6 % (13.4-35.0) L 11/14/18 06:00 Leake % (Auto) 12.2 % (0.0-7.3) H 11/14/18 06:00 Eos % (Auto) 2.7 % (0.0-4.3) 11/14/18 06:00 Baso % (Auto) 0.8 % (0.0-1.8) 11/14/18 06:00 Lymph # 0.5 K/mm3 (1.2-5.4) L 11/14/18 06:00 Leake # 0.5 K/mm3 (0.0-0.8) 11/14/18 06:00 Eos # 0.1 K/mm3 (0.0-0.4) 11/14/18 06:00 Baso # 0.0 K/mm3 (0.0-0.1) 11/14/18 06:00 Seg Neutrophils % 73.7 % (40.0-70.0) H 11/14/18 06:00 Seg Neutrophils # 3.1 K/mm3 (1.8-7.7) 11/14/18 06:00 PT 16.0 Sec. (12.2-14.9) H 11/13/18 11:43 INR 1.20 (0.87-1.13) H 11/13/18 11:43 APTT 36.5 Sec. (24.2-36.6) 11/13/18 11:43 Sodium 131 mmol/L (137-145) L 11/14/18 06:25 Potassium 3.9 mmol/L (3.6-5.0) 11/14/18 06:25 Chloride 92.6 mmol/L (98-107) L 11/14/18 06:25 Carbon Dioxide 25 mmol/L (22-30) 11/14/18 06:25 Anion Gap 17 mmol/L 11/14/18 06:25 BUN 33 mg/dL (9-20) H 11/14/18 06:25 Creatinine 4.8 mg/dL (0.8-1.5) H 11/14/18 06:25 Estimated GFR 15 ml/min 11/14/18 06:25 BUN/Creatinine Ratio 7 % 11/14/18 06:25 Glucose 83 mg/dL (75-100) 11/14/18 06:25 POC Glucose 84 (70-105) 11/14/18 21:35 Hemoglobin A1c 4.9 % (4-6) 11/13/18 11:43 Calcium 8.8 mg/dL (8.4-10.2) 11/14/18 06:25 Iron 18 ug/dL (49-181) L 11/14/18 06:25 TIBC 55 mcg/dL (250-450) L 11/14/18 06:25 % Saturation 32.73 % 11/14/18 06:25 Transferrin 49 mg/dl (180-329) L 11/14/18 06:25 Total Bilirubin 0.20 mg/dL (0.1-1.2) 11/14/18 06:25 AST < 5 units/L (5-40) L 11/14/18 06:25 ALT < 5 units/L (7-56) L 11/14/18 06:25 Alkaline Phosphatase 73 units/L (35-129) 11/14/18 06:25 Total Protein 5.8 g/dL (6.3-8.2) L 11/14/18 06:25 Albumin 2.1 g/dL (3.9-5) L 11/14/18 06:25 Albumin/Globulin Ratio 0.6 % 11/14/18 06:25 Vitamin B12 603.4 pg/mL (211-911) 11/14/18 09:00 TSH 4.280 mlU/mL (0.270-4.200) H 11/13/18 11:43 Free T4 0.80 ng/dL (0.76-1.46) 11/13/18 11:43 Blood Type O POSITIVE 11/14/18 12:17 Antibody Screen Negative 11/14/18 12:17 Active Medications - Current Medications Current Medications: Generic Name Dose Route Start Last Admin Trade Name Freq PRN Reason Stop Dose Admin Acetaminophen 650 mg 11/13/18 21:14 Tylenol PO Q4H PRN Pain MILD(1-3)/Fever >100.5/HILL Acetaminophen 1,000 mg 11/13/18 21:38 Tylenol PO Q12H PRN Pain, Mild (1-3) Lipase/Protease/Amylase 1 each 11/15/18 08:07 Pancreazkaren Barrientos 10,500 Unit FEEDTUBE PRN PRN For Clogged Feeding Tube Aspirin 81 mg 11/14/18 10:00 11/14/18 10:43 Halfprin Ec PO Not Given DAILY [facility] Dextrose 25 ml 11/14/18 13:39 D50w (25gm) Syringe IV PRN PRN Hypoglycemia Docusate Sodium 100 mg 11/13/18 22:00 11/14/18 21:59 Colace PO Not Given BID [facility] Epoetin Solitario 10,000 unit 11/14/18 14:40 Procrit IV UMA PRN hemoglobin less than 10 Famotidine 20 mg 11/14/18 10:00 11/14/18 10:43 Pepcid PO Not Given DAILY [facility] Folic Acid 1 mg 11/14/18 10:00 11/14/18 10:43 Folvite PO Not Given DAILY [facility] Gabapentin 100 mg 11/13/18 22:00 11/14/18 21:58 Neurontin PO 100 mg QHS [facility]ANC[facility]Z Administration Heparin Sodium (Porcine) 5,000 unit 11/13/18 22:00 11/14/18 21:59 Heparin SUB-Q 5,000 unit Q12HR SANC[facility]Z Administration Hydralazine HCl 25 mg 11/13/18 22:00 11/15/18 06:17 Apresoline PO Not Given Q8HR [facility] Hydrocortisone Sodium Succinate 100 mg 11/14/18 11:00 11/15/18 05:28 Solu-Cortef IV 100 mg Q8HR [facility] Administration Hydromorphone HCl 0.25 mg 11/13/18 21:35 11/14/18 01:39 Dilaudid IV 0.25 mg Q3H PRN Administration Pain, Moderate (4-6) Norepinephrine 4 mg in 250 mls @ 37.5 mls/hr 11/14/18 04:00 11/15/18 06:00 Levophed Drip 4 Mg/Ns 250 Ml IV 0 mcg/min TITR SANCHEZ 0 mls/hr Titration Protocol 10 MCG/MIN Cefepime HCl 1 gm in 100 mls @ 200 mls/hr 11/14/18 10:00 11/14/18 12:11 Maxipime/Ns 1 Gm/100 Ml IV 200 mls/hr Q24HR [facility] Administration Protocol Ferric Sodium Gluconate 110 mls @ 100 mls/hr 11/14/18 11:00 11/14/18 12:10 Complex 125 mg/ Sodium IV 11/18/18 11:05 100 mls/hr Chloride QDAY [facility] Administration Ondansetron HCl 4 mg 11/13/18 21:14 Zofran IV Q8H PRN Nausea And Vomiting Polyethylene Glycol 17 gm 11/14/18 10:00 11/14/18 10:43 Miralax 3350 PO Not Given QDAY [facility] Risperidone 1 mg 11/14/18 10:00 11/14/18 12:53 Risperdal PO Not Given QAM [facility] Risperidone 0.5 mg 11/13/18 22:00 11/14/18 21:58 Risperdal PO 0.5 mg HS [facility] Administration Sertraline HCl 100 mg 11/14/18 10:00 11/14/18 12:53 Zoloft PO Not Given QDAY [facility] Simple Syrup 15 ml 11/15/18 08:07 Simple Syrup FEEDTUBE PRN PRN Hypoglycemia Simple Syrup 30 ml 11/15/18 08:07 Simple Syrup FEEDTUBE PRN PRN Hypoglycemia Sodium Bicarbonate 325 mg 11/15/18 08:07 Sodium Bicarbonate FEEDTUBE PRN PRN For Clogged Feeding Tube Sodium Chloride 10 ml 11/13/18 22:00 11/14/18 22:03 Sodium Chloride Flush Syringe 10 Ml IV 10 ml BID S[facility]Z Administration Sodium Chloride 10 ml 11/13/18 21:14 Sodium Chloride Flush Syringe 10 Ml IV PRN PRN LINE FLUSH Nutrition/Malnutrition Assess - Dietary Evaluation Nutrition/Malnutrition Findings: Nutrition Notes Start: 11/14/18 10:54 Freq: Status: Active Protocol: Document 11/14/18 10:54 LP (Rec: 11/14/18 10:59 LP [id number]) Nutrition Notes Need for Assessment generated from: MD Order Initial or Follow up Assessment Current Diagnosis CKD (stage V CKD),Diabetes, Sepsis,Hypertension,Heart Failure,Malnutrition,Stroke Other Pertinent Diagnosis on HD Current Diet Renal Labs/Tests Na 131 BUN 33 Cr 4.8 Pertinent Medications NS at 42ml/hr Height 5 ft 11 in Weight 108.3 kg [place] Body Weight (kg) 78.18 BMI 33.3 Subjective/Other Information Consult for malnutrition and TF. Pt lethargic and MD to place dobhoff due to not eating this AM. Unable to obtain nutrition hx from pt. Burn Absent Trauma Absent #1 Nutrition Diagnosis Inadequate oral intake Etiology lethargy As Evidenced by Signs and Symptoms MD to place dobhoff due to not eating Is patient on ventilator? No Is Patient Ambulatory and/or Out of Bed No REE-([facility]-confined to bed) 2278.992 Kcal/Kg value to use for calculation 18 Approximate Energy Requirements Using 1949 kcal/Kg Calculation Used for Recommendations Kcal/kg Additional Notes Protein needs are 108-130g (1- 1.2g/kg) Fluid needs are 1ml/kcal or per MD Nutrition Intervention Change Diet Order: TF Nutrition Support: Nepro at 45ml/hr Flush with 150ml q4h or per MD Kcal 1,944 Protein (gm) 87 Fluid (mL) 785 Goal #1 Meet at least 80% of kcal and protein needs via TF Anticipated Discharge Needs: Unable to determine at this time Follow-Up By: 11/17/18 Additional Comments Follow for TF start/tolerance
[2018-11-15 09:43] LABS: Hematocrit 30.2 % (35.5-45.6); Hemoglobin 9.3 gm/dl (11.8-15.2); Mean Corpuscular HGB Conc 31 % (32-34); Mean Corpuscular Volume 82 fl (84-94); Platelet Count 156 K/mm3 (140-440); Red Blood Count 3.69 M/mm3 (3.65-5.03)
[2018-11-15 09:53] LABS: Calcium 8.7 mg/dL (8.4-10.2)
[2018-11-15 09:54] LABS: Red Cell Distribution Width 21.7 % (13.2-15.2)
[2018-11-15] MEDS: HEPARIN SUB-Q SCH ×2 (10:25→23:25)
[2018-11-15] MEDS: HALFPRIN EC PO SCH (10:25)
[2018-11-15] MEDS: PEPCID PO SCH (10:25)
[2018-11-15] MEDS: MIRALAX 3350 PO SCH (10:25)
[2018-11-15] MEDS: RisperDAL PO SCH ×2 (10:25→23:26)
[2018-11-15] MEDS: FOLVITE PO SCH (10:25)
[2018-11-15] MEDS: ZOLOFT PO SCH (10:25)
[2018-11-15] MEDS: SODIUM CHLORIDE FLUSH SYRINGE 10 ML IV SCH ×2 (10:27→23:26)
[2018-11-15] MEDS: MAXIPIME/NS 1 GM/100 ML 1 GM/100 ML BAG IV SCH (10:31)
[2018-11-15 10:35] LABS: Basophils % (Manual) 0 % (0.0-1.8); Eosinophils % (Manual) 0 % (0.0-4.3); Monocytes % (Manual) 0 % (0.0-7.3); Total Cells Counted 100
[2018-11-15 10:36] LABS: Hypochromasia 2+; Target Cells 2+; Tear Drop Cells Few
[2018-11-15 10:37] LABS: Giant Platelets Few; Platelet Estimate Consistent w Auto
[2018-11-15] MEDS: FERRLECIT 125 MG in NACL 0.9% 100 ML IV SCH (10:52)
[2018-11-15] MEDS: COLACE PO SCH ×2 (10:53→23:27)
--- NOTE | 2018-11-15 12:15 | Progress Note ---
Assessment and Plan 63 y/o male admitted with hypotension, hypothermia and bradycardia, etiologies of all 3 unknown. 1. Continue empiric abx therapy until cultures have resulted. 2. BP did improve with steroid use but still marginal. continue for now. Levo on standby for HD purposes. Will also give PRBC's with HD today. 3. Will given 1 unit of PRBC's with HD 4. Severe Iron deficiency anemia. Will give IV iron for the next 4 days. MCV low at 81. 5. Appreciate [facility] recs 6. Continue feeds via DH 7. Hold all antihypertensives and rate controlling agents 8. Overall prognosis is guarded. CCT 31 minutes. Subjective Date of service: 11/15/18 Interval history: More awake today compared to yesterday. No family present at bedside. Off pressors. Per Renal Note scheduled for HD today. Objective - Constitutional Vitals: Vital Signs - 12hr 11/15/18 11/15/18 11/15/18 00:15 00:30 00:45 Temperature Pulse Rate 72 78 74 Respiratory 8 L 7 L 7 L Rate Blood Pressure 111/51 104/57 108/61 O2 Sat by Pulse 97 95 97 Oximetry 11/15/18 11/15/18 11/15/18 01:00 01:15 01:30 Temperature Pulse Rate 68 67 68 Respiratory 7 L 8 L 8 L Rate Blood Pressure 108/61 102/53 94/46 O2 Sat by Pulse 100 95 96 Oximetry 11/15/18 11/15/18 11/15/18 01:45 02:00 02:15 Temperature Pulse Rate 70 68 64 Respiratory 8 L 7 L 7 L Rate Blood Pressure 94/45 89/51 91/43 O2 Sat by Pulse 96 96 96 Oximetry 11/15/18 11/15/18 11/15/18 02:29 02:30 02:45 Temperature 97.8 F Pulse Rate 67 70 Respiratory 7 L 6 L Rate Blood Pressure 89/47 98/46 O2 Sat by Pulse 96 96 Oximetry 11/15/18 11/15/18 11/15/18 03:00 03:15 03:31 Temperature Pulse Rate 73 91 H 74 Respiratory 8 L 13 10 L Rate Blood Pressure 103/52 103/52 114/60 O2 Sat by Pulse 95 99 98 Oximetry 11/15/18 11/15/18 11/15/18 03:45 04:00 04:01 Temperature Pulse Rate 70 78 Respiratory 7 L 7 L Rate Blood Pressure 107/58 103/61 O2 Sat by Pulse 99 100 99 Oximetry 11/15/18 11/15/18 11/15/18 04:15 04:30 04:45 Temperature Pulse Rate 71 72 73 Respiratory 7 L 7 L 7 L Rate Blood Pressure 127/56 102/60 104/57 O2 Sat by Pulse 100 100 100 Oximetry 11/15/18 11/15/18 11/15/18 05:00 05:15 05:30 Temperature Pulse Rate 73 70 67 Respiratory 6 L 6 L 6 L Rate Blood Pressure 107/63 108/51 113/57 O2 Sat by Pulse 100 99 100 Oximetry 11/15/18 11/15/18 11/15/18 05:45 06:00 06:15 Temperature Pulse Rate 70 70 71 Respiratory 6 L 6 L 7 L Rate Blood Pressure 104/56 98/49 86/48 O2 Sat by Pulse 100 99 98 Oximetry 11/15/18 11/15/18 11/15/18 06:17 06:30 06:45 Temperature Pulse Rate 60 70 66 Respiratory 7 L 8 L Rate Blood Pressure 86/48 92/45 89/47 O2 Sat by Pulse 99 98 Oximetry 11/15/18 11/15/18 11/15/18 07:00 07:15 07:30 Temperature Pulse Rate 67 69 66 Respiratory 7 L 7 L 6 L Rate Blood Pressure 90/45 87/47 94/49 O2 Sat by Pulse 98 98 97 Oximetry 11/15/18 11/15/18 11/15/18 07:45 08:00 08:15 Temperature 96.4 F L Pulse Rate 63 65 78 Respiratory 6 L 6 L 8 L Rate Blood Pressure 103/56 108/49 112/58 O2 Sat by Pulse 98 98 99 Oximetry 11/15/18 11/15/18 11/15/18 08:30 08:45 09:00 Temperature Pulse Rate 74 75 65 Respiratory 6 L 7 L 7 L Rate Blood Pressure 105/53 98/44 86/50 O2 Sat by Pulse 99 99 99 Oximetry 11/15/18 09:15 Temperature Pulse Rate 71 Respiratory 5 L Rate Blood Pressure 104/57 O2 Sat by Pulse 100 Oximetry General appearance: Present: no acute distress, well-nourished, obese - EENT ENT: hearing intact - Neck Neck: supple - Respiratory Respiratory effort: normal Respiratory: bilateral: diminished - Breasts Breasts: deferred - Cardiovascular Rhythm: other (slow afib) - Labs CBC & Chem 7: 11/15/18 03:51 11/15/18 03:51 Labs: Abnormal lab results 11/14/18 11/15/18 11/15/18 Range/Units 12:27 03:51 03:51 WBC 2.2 L (4.5-11.0) K/mm3 Hgb 9.3 L (11.8-15.2) gm/dl Hct 30.2 L (35.5-45.6) % MCV 82 L (84-94) fl MCH 25 L (28-32) pg MCHC 31 L (32-34) % RDW 21.7 H (13.2-15.2) % Seg Neuts % (Manual) 98.0 H (40.0-70.0) % Lymphocytes % (Manual) 2.0 L (13.4-35.0) % Lymphocytes # (Manual) 0.0 L (1.2-5.4) K/mm3 Sodium 131 L (137-145) mmol/L Chloride 95.3 L (98-107) mmol/L Carbon Dioxide 21 L (22-30) mmol/L BUN 33 H (9-20) mg/dL Creatinine 5.3 H (0.8-1.5) mg/dL POC Glucose 64 L (70-105) Medications & Allergies - Medications Allergies/Adverse Reactions: Allergies haloperidol [From Haldol] Adverse Reaction (Verified 03/13/18 12:10) Unknown haloperidol lactate [From Haldol] Adverse Reaction (Verified 03/13/18 12:10) Unknown Home Medications: Home Medications Medication Instructions Recorded Confirmed Last Taken Type Gabapentin [Neurontin] 100 mg PO QHS #60 capsule 10/02/17 11/14/18 01/19/18 19:00 Rx Acetaminophen [Acetaminophen TAB] 1,000 mg PO Q12H PRN 03/13/18 11/14/18 Unknown History Insulin Aspart [NovoLOG Flexpen] 0 units SUB-Q QWEEK 03/13/18 11/14/18 Unknown History risperiDONE [RisperDAL] 1 mg PO QAM 03/13/18 11/14/18 Unknown History Aspirin EC [Aspirin Enteric Coated 81 mg PO DAILY 03/18/18 11/14/18 Unknown History TAB] Docusate Sodium [Colace CAP] 100 mg PO BID 03/18/18 11/14/18 Unknown History Folic Acid [Folvite] 1 mg PO DAILY 03/18/18 11/14/18 Unknown History ISOSORBIDE MONOnitrate [Imdur ER] 30 mg PO DAILY 03/18/18 11/14/18 Unknown History Metoprolol [Lopressor TAB] 50 mg PO BID 03/18/18 11/14/18 Unknown History Minoxidil [Loniten] 2.5 mg PO BID 03/18/18 11/14/18 Unknown History Sevelamer Carbonate [Renvela] 800 mg PO TIDWM 03/18/18 11/14/18 Unknown History Famotidine [Pepcid] 20 mg PO DAILY #30 tablet 06/09/18 11/14/18 Unknown Rx Sertraline [Zoloft] 100 mg PO QDAY 08/26/18 11/14/18 Unknown History risperiDONE [RisperDAL] 0.5 mg PO HS 08/26/18 11/14/18 Unknown History hydrALAZINE [Apresoline TAB] 25 mg PO Q8HR tablet 09/02/18 11/14/18 Unknown Rx Polyethylene Glycol 3350 [Miralax 17 gm PO QDAY #30 packet 11/05/18 11/14/18 Unknown Rx 3350] levoFLOXacin [Levaquin TAB] 500 mg PO Q48HR #3 tablet 11/05/18 11/14/18 Unknown Rx Active Medications: Generic Name Dose Route Start Last Admin Trade Name Freq PRN Reason Stop Dose Admin Acetaminophen 650 mg 11/13/18 21:14 Tylenol PO Q4H PRN Pain MILD(1-3)/Fever >100.5/[facility]ILL Acetaminophen 1,000 mg 11/13/18 21:38 Tylenol PO Q12H PRN Pain, Mild (1-3) Lipase/Protease/Amylase 1 each 11/15/18 08:07 Pancrejewel Barrientos 10,500 Unit FEEDTUBE PRN PRN For Clogged Feeding Tube Aspirin 81 mg 11/14/18 10:00 11/15/18 10:25 Halfprin Ec PO 81 mg DAILY [facility] Administration Dextrose 25 ml 11/14/18 13:39 D50w (25gm) Syringe IV PRN PRN Hypoglycemia Docusate Sodium 100 mg 11/13/18 22:00 11/15/18 10:53 Colace PO Not Given BID [facility] Epoetin Solitario 10,000 unit 11/14/18 14:40 Procrit IV UMA PRN hemoglobin less than 10 Famotidine 20 mg 11/14/18 10:00 11/15/18 10:25 Pepcid PO 20 mg DAILY [facility] Administration Folic Acid 1 mg 11/14/18 10:00 11/15/18 10:25 Folvite PO 1 mg DAILY [facility] Administration Gabapentin 100 mg 11/13/18 22:00 11/14/18 21:58 Neurontin PO 100 mg QHS SANCHEZ Administration Heparin Sodium (Porcine) 5,000 unit 11/13/18 22:00 11/15/18 10:25 Heparin SUB-Q 5,000 unit Q12HR [facility] Administration Hydralazine HCl 25 mg 11/13/18 22:00 11/15/18 06:17 Apresoline PO Not Given Q8HR [facility] Hydrocortisone Sodium Succinate 100 mg 11/14/18 11:00 11/15/18 05:28 Solu-Cortef IV 100 mg Q8HR [facility] Administration Hydromorphone HCl 0.25 mg 11/13/18 21:35 11/14/18 01:39 Dilaudid IV 0.25 mg Q3H PRN Administration Pain, Moderate (4-6) Norepinephrine 4 mg in 250 mls @ 37.5 mls/hr 11/14/18 04:00 11/15/18 06:00 Levophed Drip 4 Mg/Ns 250 Ml IV 0 mcg/min TITR [facility]Z 0 mls/hr Titration Protocol 10 MCG/MIN Cefepime HCl 1 gm in 100 mls @ 200 mls/hr 11/14/18 10:00 11/15/18 10:31 Maxipime/Ns 1 Gm/100 Ml IV 200 mls/hr Q24HR [facility] Administration Protocol Ferric Sodium Gluconate 110 mls @ 100 mls/hr 11/14/18 11:00 11/15/18 10:52 Complex 125 mg/ Sodium IV 11/18/18 11:05 100 mls/hr Chloride QDAY [facility] Administration Ondansetron HCl 4 mg 11/13/18 21:14 Zofran IV Q8H PRN Nausea And Vomiting Polyethylene Glycol 17 gm 11/14/18 10:00 11/15/18 10:25 Miralax 3350 PO 17 gm QDAY [facility] Administration Risperidone 1 mg 11/14/18 10:00 11/15/18 10:25 Risperdal PO 1 mg QAM [facility] Administration Risperidone 0.5 mg 11/13/18 22:00 11/14/18 21:58 Risperdal PO 0.5 mg HS [facility] Administration Sertraline HCl 100 mg 11/14/18 10:00 11/15/18 10:25 Zoloft PO 100 mg QDAY [facility] Administration Simple Syrup 15 ml 11/15/18 08:07 Simple Syrup FEEDTUBE PRN PRN Hypoglycemia Simple Syrup 30 ml 11/15/18 08:07 Simple Syrup FEEDTUBE PRN PRN Hypoglycemia Sodium Bicarbonate 325 mg 11/15/18 08:07 Sodium Bicarbonate FEEDTUBE PRN PRN For Clogged Feeding Tube Sodium Chloride 10 ml 11/13/18 22:00 11/15/18 10:27 Sodium Chloride Flush Syringe 10 Ml IV 10 ml BID SANC[facility]Z Administration Sodium Chloride 10 ml 11/13/18 21:14 Sodium Chloride Flush Syringe 10 Ml IV PRN PRN LINE FLUSH
[2018-11-15] MEDS ORDERED: NACL 0.9% 500 ML 500 ML IV ONE (12:20)
--- NOTE | 2018-11-15 12:43 | Progress Note ---
Assessment and Plan Cardiac rhythm is stable. - Patient Problems (1) Hypotension Current Visit: Yes Status: Acute Qualifiers: Hypotension type: hemodialysis-associated hypotension Qualified Code(s): I95.3 - Hypotension of hemodialysis (2) Hypothermia Current Visit: Yes Status: Acute (3) Bradycardia Current Visit: Yes Status: Chronic (4) Permanent atrial fibrillation Current Visit: Yes Status: Chronic (5) Anemia Current Visit: Yes Status: Chronic Qualifiers: Anemia type: iron deficiency (6) End stage renal disease Current Visit: Yes Status: Chronic (7) Diabetes mellitus Current Visit: Yes Status: Chronic Subjective Date of service: 11/15/18 Principal diagnosis: Hypotension, hypothermia, bradycardia, perm AF, ESRD, DM, Anemia Interval history: Awake. No complaint. Atrial fibrillation with CVR. Objective Vital Signs Temp Pulse Resp BP Pulse Ox 11/15/18 12:30 72 7 L 101/56 97 11/15/18 12:15 71 6 L 94/52 96 11/15/18 12:00 97.4 F L 79 6 L 98/50 96 11/15/18 11:45 74 7 L 87/49 96 11/15/18 11:30 72 6 L 89/45 98 11/15/18 11:15 70 6 L 101/47 96 11/15/18 11:00 72 6 L 101/45 96 11/15/18 10:45 80 6 L 97/51 97 11/15/18 10:30 78 6 L 88/44 96 11/15/18 10:15 66 6 L 91/42 97 11/15/18 10:00 65 6 L 95/48 96 11/15/18 09:45 66 6 L 93/49 96 11/15/18 09:30 69 6 L 109/50 97 11/15/18 09:15 71 5 L 104/57 100 11/15/18 09:00 65 7 L 86/50 99 11/15/18 08:45 75 7 L 98/44 99 11/15/18 08:30 74 6 L 105/53 99 11/15/18 08:15 78 8 L 112/58 99 11/15/18 08:00 96.4 F L 65 6 L 108/49 98 11/15/18 07:45 63 6 L 103/56 98 11/15/18 07:30 66 6 L 94/49 97 11/15/18 07:15 69 7 L 87/47 98 11/15/18 07:00 67 7 L 90/45 98 11/15/18 06:45 66 8 L 89/47 98 11/15/18 06:30 70 7 L 92/45 99 11/15/18 06:17 60 86/48 11/15/18 06:15 71 7 L 86/48 98 11/15/18 06:00 70 6 L 98/49 99 11/15/18 05:45 70 6 L 104/56 100 11/15/18 05:30 67 6 L 113/57 100 11/15/18 05:15 70 6 L 108/51 99 11/15/18 05:00 73 6 L 107/63 100 11/15/18 04:45 73 7 L 104/57 100 11/15/18 04:30 72 7 L 102/60 100 11/15/18 04:15 71 7 L 127/56 100 11/15/18 04:01 78 7 L 103/61 99 11/15/18 04:00 100 11/15/18 03:45 70 7 L 107/58 99 11/15/18 03:31 74 10 L 114/60 98 11/15/18 03:15 91 H 13 103/52 99 11/15/18 03:00 73 8 L 103/52 95 11/15/18 02:45 70 6 L 98/46 96 11/15/18 02:30 67 7 L 89/47 96 11/15/18 02:29 97.8 F 11/15/18 02:15 64 7 L 91/43 96 11/15/18 02:00 68 7 L 89/51 96 11/15/18 01:45 70 8 L 94/45 96 11/15/18 01:30 68 8 L 94/46 96 11/15/18 01:15 67 8 L 102/53 95 11/15/18 01:00 68 7 L 108/61 100 11/15/18 00:45 74 7 L 108/61 97 11/15/18 00:30 78 7 L 104/57 95 11/15/18 00:15 72 8 L 111/51 97 11/15/18 00:00 76 8 L 102/57 95 11/14/18 23:45 97.9 F 76 8 L 96/52 95 11/14/18 23:30 73 8 L 110/53 96 11/14/18 23:15 70 8 L 126/65 100 11/14/18 23:07 73 8 L 122/53 100 11/14/18 23:00 73 8 L 122/53 96 11/14/18 22:45 70 9 L 126/65 93 11/14/18 22:33 79 9 L 126/65 99 11/14/18 22:31 78 8 L 126/65 95 11/14/18 22:15 77 8 L 125/72 94 11/14/18 22:00 80 8 L 111/58 93 11/14/18 21:59 81 103/60 11/14/18 21:45 79 10 L 103/60 97 11/14/18 21:30 73 11 L 113/56 92 11/14/18 21:15 71 9 L 111/50 92 11/14/18 21:00 73 8 L 114/54 93 11/14/18 20:45 75 9 L 100/57 91 11/14/18 20:30 79 10 L 108/62 93 11/14/18 20:15 73 8 L 103/53 92 11/14/18 20:00 74 9 L 107/48 92 11/14/18 19:45 73 8 L 102/48 92 11/14/18 19:39 96 11/14/18 19:30 66 7 L 96/51 93 11/14/18 19:25 98.9 F 11/14/18 19:15 77 9 L 93/52 90 11/14/18 19:00 74 8 L 107/53 93 11/14/18 18:45 73 8 L 98/47 92 11/14/18 18:30 81 9 L 106/59 94 11/14/18 18:15 78 9 L 107/53 94 11/14/18 18:00 78 8 L 115/37 90 11/14/18 17:45 72 8 L 119/55 95 11/14/18 17:31 76 9 L 119/55 93 11/14/18 17:15 69 9 L 131/56 90 11/14/18 17:00 72 9 L 121/63 90 11/14/18 16:45 72 10 L 116/65 92 11/14/18 16:30 73 9 L 126/70 91 11/14/18 16:15 59 L 8 L 116/65 92 11/14/18 16:00 98.8 F 66 8 L 118/66 95 11/14/18 15:45 68 10 L 112/63 91 11/14/18 15:30 64 8 L 114/57 91 11/14/18 15:15 63 9 L 106/63 91 11/14/18 15:00 64 9 L 103/58 88 11/14/18 14:45 64 8 L 103/48 88 11/14/18 14:30 67 8 L 98/56 90 11/14/18 14:15 61 9 L 99/56 93 11/14/18 14:04 59 L 108/55 11/14/18 14:00 57 L 8 L 108/55 90 11/14/18 13:45 70 9 L 105/66 88 11/14/18 13:30 64 8 L 107/54 94 11/14/18 13:15 58 L 7 L 107/56 92 11/14/18 13:01 63 7 L 101/53 95 11/14/18 12:45 67 8 L 111/63 95 - Physical Examination General: No Apparent Distress HEENT: Positive: EOMI, Normocephaly, Mucus Membranes Moist Neck: Positive: neck supple, trachea midline Cardiac: Positive: irregularly irregular, S1/S2 Lungs: Positive: clear to auscultation Neuro: Positive: Grossly Intact Abdomen: Positive: Soft, Active Bowel Sounds. Negative: Tender Skin: Positive: Clear Musculoskeletal: Normal Range of Motion Extremities: Present: warm. Absent: edema - Labs and Meds CBC 11/15/18 Range/Units 03:51 WBC 2.2 L (4.5-11.0) K/mm3 RBC 3.69 (3.65-5.03) M/mm3 Hgb 9.3 L (11.8-15.2) gm/dl Hct 30.2 L (35.5-45.6) % Plt Count 156 (140-440) K/mm3 Lymph # Refrigeration Mechanic Alfalfa # Refrigeration Mechanic Eos # Refrigeration Mechanic Baso # Refrigeration Mechanic Comprehensive Metabolic Panel 11/15/18 Range/Units 03:51 Sodium 131 L (137-145) mmol/L Potassium 4.7 D (3.6-5.0) mmol/L Chloride 95.3 L (98-107) mmol/L Carbon Dioxide 21 L (22-30) mmol/L BUN 33 H (9-20) mg/dL Creatinine 5.3 H (0.8-1.5) mg/dL Glucose 85 (75-100) mg/dL Calcium 8.7 (8.4-10.2) mg/dL - Imaging and Cardiology Echo: report reviewed (echo 03/08: Mild to moderate LVH, EF 40-45%,) - Telemetry EKG Rhythm: Atrial Fibrillation - EKG Supraventricular dysrhythmia: atrial fibrillation
--- NOTE | 2018-11-15 13:18 | Progress Note ---
Assessment and Plan Impression: * End stage renal disease * Sepsis * Bradycardia * Schizophrenia * Chronic atrial fibrillation * Coronary artery disease * History of CVA * Anemia secondary to ESRD Plan: * Hemodialysis today pending hemodynamic stability * UF as tolerated * Continue TTS schedule * Will likely need to resume pressors for dialysis * Pressors prn maintain MAP>65 * Cardiology recommendations reviewed * Empiric abx per primary team * Dose medications for renal function * Epogen TID prn Subjective Date of service: 11/15/18 Principal diagnosis: Hypotension, hypothermia, bradycardia, perm AF, ESRD, DM, Anemia Interval history: 24h events noted. Chart reviewed. Patient has no complaint today. Objective - Vital Signs Vital signs: Vital Signs - 12hr 11/15/18 11/15/18 11/15/18 01:30 01:45 02:00 Temperature Pulse Rate 68 70 68 Respiratory 8 L 8 L 7 L Rate Blood Pressure 94/46 94/45 89/51 O2 Sat by Pulse 96 96 96 Oximetry 11/15/18 11/15/18 11/15/18 02:15 02:29 02:30 Temperature 97.8 F Pulse Rate 64 67 Respiratory 7 L 7 L Rate Blood Pressure 91/43 89/47 O2 Sat by Pulse 96 96 Oximetry 11/15/18 11/15/18 11/15/18 02:45 03:00 03:15 Temperature Pulse Rate 70 73 91 H Respiratory 6 L 8 L 13 Rate Blood Pressure 98/46 103/52 103/52 O2 Sat by Pulse 96 95 99 Oximetry 11/15/18 11/15/18 11/15/18 03:31 03:45 04:00 Temperature Pulse Rate 74 70 Respiratory 10 L 7 L Rate Blood Pressure 114/60 107/58 O2 Sat by Pulse 98 99 100 Oximetry 11/15/18 11/15/18 11/15/18 04:01 04:15 04:30 Temperature Pulse Rate 78 71 72 Respiratory 7 L 7 L 7 L Rate Blood Pressure 103/61 127/56 102/60 O2 Sat by Pulse 99 100 100 Oximetry 11/15/18 11/15/18 11/15/18 04:45 05:00 05:15 Temperature Pulse Rate 73 73 70 Respiratory 7 L 6 L 6 L Rate Blood Pressure 104/57 107/63 108/51 O2 Sat by Pulse 100 100 99 Oximetry 11/15/18 11/15/18 11/15/18 05:30 05:45 06:00 Temperature Pulse Rate 67 70 70 Respiratory 6 L 6 L 6 L Rate Blood Pressure 113/57 104/56 98/49 O2 Sat by Pulse 100 100 99 Oximetry 11/15/18 11/15/18 11/15/18 06:15 06:17 06:30 Temperature Pulse Rate 71 60 70 Respiratory 7 L 7 L Rate Blood Pressure 86/48 86/48 92/45 O2 Sat by Pulse 98 99 Oximetry 11/15/18 11/15/18 11/15/18 06:45 07:00 07:15 Temperature Pulse Rate 66 67 69 Respiratory 8 L 7 L 7 L Rate Blood Pressure 89/47 90/45 87/47 O2 Sat by Pulse 98 98 98 Oximetry 11/15/18 11/15/18 11/15/18 07:30 07:45 08:00 Temperature 96.4 F L Pulse Rate 66 63 65 Respiratory 6 L 6 L 6 L Rate Blood Pressure 94/49 103/56 108/49 O2 Sat by Pulse 97 98 98 Oximetry 11/15/18 11/15/18 11/15/18 08:15 08:30 08:45 Temperature Pulse Rate 78 74 75 Respiratory 8 L 6 L 7 L Rate Blood Pressure 112/58 105/53 98/44 O2 Sat by Pulse 99 99 99 Oximetry 11/15/18 11/15/18 11/15/18 09:00 09:15 09:30 Temperature Pulse Rate 65 71 69 Respiratory 7 L 5 L 6 L Rate Blood Pressure 86/50 104/57 109/50 O2 Sat by Pulse 99 100 97 Oximetry 11/15/18 11/15/18 11/15/18 09:45 10:00 10:15 Temperature Pulse Rate 66 65 66 Respiratory 6 L 6 L 6 L Rate Blood Pressure 93/49 95/48 91/42 O2 Sat by Pulse 96 96 97 Oximetry 11/15/18 11/15/18 11/15/18 10:30 10:45 11:00 Temperature Pulse Rate 78 80 72 Respiratory 6 L 6 L 6 L Rate Blood Pressure 88/44 97/51 101/45 O2 Sat by Pulse 96 97 96 Oximetry 11/15/18 11/15/18 11/15/18 11:15 11:30 11:45 Temperature Pulse Rate 70 72 74 Respiratory 6 L 6 L 7 L Rate Blood Pressure 101/47 89/45 87/49 O2 Sat by Pulse 96 98 96 Oximetry 11/15/18 11/15/18 11/15/18 12:00 12:15 12:30 Temperature 97.4 F L Pulse Rate 79 71 72 Respiratory 6 L 6 L 7 L Rate Blood Pressure 98/50 94/52 101/56 O2 Sat by Pulse 96 96 97 Oximetry - General Appearance General appearance: well-developed, well-nourished EENT: ATNC, other (NGT in place) Respiratory: Present: Clear to Ascultation Cardiology: regular, S1S2 Gastrointestinal: normal, no tenderness, no distended Integumentary: no rash, warm and dry Musculoskeletal: other (+edema) Psychiatric: cooperative - Lab 11/15/18 03:51 11/15/18 03:51 Most recent lab results Calcium 8.7 mg/dL (8.4-10.2) 11/15/18 03:51 Medications & Allergies - Medications Allergies/Adverse Reactions: Allergies haloperidol [From Haldol] Adverse Reaction (Verified 03/13/18 12:10) Unknown haloperidol lactate [From Haldol] Adverse Reaction (Verified 03/13/18 12:10) Unknown Home Medications: Home Medications Medication Instructions Recorded Confirmed Last Taken Type Gabapentin [Neurontin] 100 mg PO QHS #60 capsule 10/02/17 11/14/18 01/19/18 19:00 Rx Acetaminophen [Acetaminophen TAB] 1,000 mg PO Q12H PRN 03/13/18 11/14/18 Unknown History Insulin Aspart [NovoLOG Flexpen] 0 units SUB-Q QWEEK 03/13/18 11/14/18 Unknown History risperiDONE [RisperDAL] 1 mg PO QAM 03/13/18 11/14/18 Unknown History Aspirin EC [Aspirin Enteric Coated 81 mg PO DAILY 03/18/18 11/14/18 Unknown History TAB] Docusate Sodium [Colace CAP] 100 mg PO BID 03/18/18 11/14/18 Unknown History Folic Acid [Folvite] 1 mg PO DAILY 03/18/18 11/14/18 Unknown History ISOSORBIDE MONOnitrate [Imdur ER] 30 mg PO DAILY 03/18/18 11/14/18 Unknown History Metoprolol [Lopressor TAB] 50 mg PO BID 03/18/18 11/14/18 Unknown History Minoxidil [Loniten] 2.5 mg PO BID 03/18/18 11/14/18 Unknown History Sevelamer Carbonate [Renvela] 800 mg PO TIDWM 03/18/18 11/14/18 Unknown History Famotidine [Pepcid] 20 mg PO DAILY #30 tablet 06/09/18 11/14/18 Unknown Rx Sertraline [Zoloft] 100 mg PO QDAY 08/26/18 11/14/18 Unknown History risperiDONE [RisperDAL] 0.5 mg PO HS 08/26/18 11/14/18 Unknown History hydrALAZINE [Apresoline TAB] 25 mg PO Q8HR tablet 09/02/18 11/14/18 Unknown Rx Polyethylene Glycol 3350 [Miralax 17 gm PO QDAY #30 packet 11/05/18 11/14/18 Unknown Rx 3350] levoFLOXacin [Levaquin TAB] 500 mg PO Q48HR #3 tablet 11/05/18 11/14/18 Unknown Rx Active Medications: Generic Name Dose Route Start Last Admin Trade Name Freq PRN Reason Stop Dose Admin Acetaminophen 650 mg 11/13/18 21:14 Tylenol PO Q4H PRN Pain MILD(1-3)/Fever >100.5/HILL Acetaminophen 1,000 mg 11/13/18 21:38 Tylenol PO Q12H PRN Pain, Mild (1-3) Lipase/Protease/Amylase 1 each 11/15/18 08:07 Pancrejewel Barrientos 10,500 Unit FEEDTUBE PRN PRN For Clogged Feeding Tube Aspirin 81 mg 11/14/18 10:00 11/15/18 10:25 Halfprin Ec PO 81 mg DAILY SANCHEZ Administration Dextrose 25 ml 11/14/18 13:39 D50w (25gm) Syringe IV PRN PRN Hypoglycemia Docusate Sodium 100 mg 11/13/18 22:00 11/15/18 10:53 Colace PO Not Given BID SANCHEZ Epoetin Solitario 10,000 unit 11/14/18 14:40 Procrit IV UMA PRN hemoglobin less than 10 Famotidine 20 mg 11/14/18 10:00 11/15/18 10:25 Pepcid PO 20 mg DAILY SANCHEZ Administration Folic Acid 1 mg 11/14/18 10:00 11/15/18 10:25 Folvite PO 1 mg DAILY SANCHEZ Administration Gabapentin 100 mg 11/13/18 22:00 11/14/18 21:58 Neurontin PO 100 mg QHS SANCHEZ Administration Heparin Sodium (Porcine) 5,000 unit 11/13/18 22:00 11/15/18 10:25 Heparin SUB-Q 5,000 unit Q12HR SANCHEZ Administration Hydralazine HCl 25 mg 11/13/18 22:00 11/15/18 06:17 Apresoline PO Not Given Q8HR SANCHEZ Hydrocortisone Sodium Succinate 100 mg 11/14/18 11:00 11/15/18 05:28 Solu-Cortef IV 100 mg Q8HR SANCHEZ Administration Hydromorphone HCl 0.25 mg 11/13/18 21:35 11/14/18 01:39 Dilaudid IV 0.25 mg Q3H PRN Administration Pain, Moderate (4-6) Norepinephrine 4 mg in 250 mls @ 37.5 mls/hr 11/14/18 04:00 11/15/18 06:00 Levophed Drip 4 Mg/Ns 250 Ml IV 0 mcg/min TITR SANCHEZ 0 mls/hr Titration Protocol 10 MCG/MIN Cefepime HCl 1 gm in 100 mls @ 200 mls/hr 11/14/18 10:00 11/15/18 10:31 Maxipime/Ns 1 Gm/100 Ml IV 200 mls/hr Q24HR SANCHEZ Administration Protocol Ferric Sodium Gluconate 110 mls @ 100 mls/hr 11/14/18 11:00 11/15/18 10:52 Complex 125 mg/ Sodium IV 11/18/18 11:05 100 mls/hr Chloride QDAY SANCHEZ Administration Ondansetron HCl 4 mg 11/13/18 21:14 Zofran IV Q8H PRN Nausea And Vomiting Polyethylene Glycol 17 gm 11/14/18 10:00 11/15/18 10:25 Miralax 3350 PO 17 gm QDAY SANCHEZ Administration Risperidone 1 mg 11/14/18 10:00 11/15/18 10:25 Risperdal PO 1 mg QAM SANCHEZ Administration Risperidone 0.5 mg 11/13/18 22:00 11/14/18 21:58 Risperdal PO 0.5 mg HS SANCHEZ Administration Sertraline HCl 100 mg 11/14/18 10:00 11/15/18 10:25 Zoloft PO 100 mg QDAY SANCHEZ Administration Simple Syrup 15 ml 11/15/18 08:07 Simple Syrup FEEDTUBE PRN PRN Hypoglycemia Simple Syrup 30 ml 11/15/18 08:07 Simple Syrup FEEDTUBE PRN PRN Hypoglycemia Sodium Bicarbonate 325 mg 11/15/18 08:07 Sodium Bicarbonate FEEDTUBE PRN PRN For Clogged Feeding Tube Sodium Chloride 10 ml 11/13/18 22:00 11/15/18 10:27 Sodium Chloride Flush Syringe 10 Ml IV 10 ml BID SANCHEZ Administration Sodium Chloride 10 ml 11/13/18 21:14 Sodium Chloride Flush Syringe 10 Ml IV PRN PRN LINE FLUSH
[2018-11-15] MEDS: PROCRIT IV PRN (17:49)
[2018-11-15] MEDS: NEURONTIN PO SCH (23:25)
[2018-11-16 04:40] LABS: Calcium 9.2 mg/dL (8.4-10.2)
[2018-11-16 05:32] LABS: Mean Corpuscular HGB Conc 31 % (32-34); Mean Corpuscular Volume 83 fl (84-94); Platelet Count 105 K/mm3 (140-440); Red Blood Count 5.71 M/mm3 (3.65-5.03)
[2018-11-16 05:33] LABS: Hematocrit 47.1 % (35.5-45.6); Hemoglobin 14.4 gm/dl (11.8-15.2)
[2018-11-16 05:40] LABS: Basophils % (Manual) 0 % (0.0-1.8); Eosinophils % (Manual) 0 % (0.0-4.3); Total Cells Counted 100
[2018-11-16 05:42] LABS: Anisocytosis 1+; Target Cells 1+
[2018-11-16 05:43] LABS: Platelet Estimate Consistent w Auto
[2018-11-16] MEDS: APRESOLINE PO SCH ×3 (07:49→22:10)
[2018-11-16] MEDS: MAXIPIME/NS 1 GM/100 ML 1 GM/100 ML BAG IV SCH (11:03)
[2018-11-16] MEDS: ZOLOFT PO SCH (11:03)
[2018-11-16] MEDS: MIRALAX 3350 PO SCH (11:03)
[2018-11-16] MEDS: HALFPRIN EC PO SCH (11:03)
[2018-11-16] MEDS: FOLVITE PO SCH (11:03)
[2018-11-16] MEDS: PEPCID PO SCH (11:03)
[2018-11-16] MEDS: RisperDAL PO SCH (11:03)
[2018-11-16] MEDS: HEPARIN SUB-Q SCH ×2 (11:04→22:11)
[2018-11-16] MEDS: FERRLECIT 125 MG in NACL 0.9% 100 ML IV SCH (11:04)
[2018-11-16] MEDS: COLACE PO SCH ×2 (11:05→22:11)
--- NOTE | 2018-11-16 11:38 | Progress Note ---
Assessment and Plan Assessment and plan: -- End stage renal disease/on hemodialysis Nephrology consulted, HD per schedule --Hypernatremia: Sodium levels improving continue current management -- Hypotension/septic shock: Resolved Possible volume depletion, possible sepsis off Levophed, empiric antibiotics --Sepsis Continue empiric antibiotics, cultures negative to date, Supportive care -- HTN (hypertension) continue current antihypertensives and when necessary medications -- GERD (gastroesophageal reflux disease) Cont PPI's -- Anemia of end-stage renal disease/iron deficiency Sec to ESRD and Iron def. closely monitor H&H Procrit during dialysis , transfuse as needed Iron supplements -- Severe Malnutrition/hypoalbuminemia Severe malnutrition/hypoalbuminemia Nutrition supplements, nutrition consult --DVT prophylaxis On Heparin and GI prophylaxis . --full CODE STATUS Monitor closely and adjust management as needed Plan of care is reviewed with the patient's nurse Stable to be transferred out of ICU if okay with Pul/Crit Critical care time 32 minutes History Interval history: Patient seen and examined medical records reviewed No new events reported by the nursing staff Patient responds appropriately, legally blind Off Levophed, no new complaints Vital signs reviewed Hospitalist Physical - Constitutional Vitals: Temp Pulse Resp BP Pulse Ox 98.3 F 83 8 L 140/71 95 11/16/18 08:00 11/16/18 10:00 11/16/18 09:45 11/16/18 09:45 11/16/18 09:45 General appearance: Present: no acute distress, well-nourished, other (responds appropriately , legally blind) - EENT Eyes: Present: PERRL, EOM intact - Neck Neck: Present: supple, normal ROM - Respiratory Respiratory effort: normal Respiratory: bilateral: diminished, negative: rales, rhonchi, wheezing - Cardiovascular Rhythm: regular Heart Sounds: Present: S1 & S2 - Extremities Extremities: no ischemia, No edema - Abdominal General gastrointestinal: soft, non-tender, non-distended, normal bowel sounds - Integumentary Integumentary: Present: clear, warm - Psychiatric Psychiatric: appropriate mood/affect, cooperative - Neurologic Neurologic: moves all extremities, other Results - Labs CBC & Chem 7: 11/16/18 03:50 11/16/18 03:50 Labs: Laboratory Last Values WBC 2.3 K/mm3 (4.5-11.0) L 11/16/18 03:50 RBC 5.71 M/mm3 (3.65-5.03) H 11/16/18 03:50 Hgb 14.4 gm/dl (11.8-15.2) D 11/16/18 03:50 Hct 47.1 % (35.5-45.6) H D 11/16/18 03:50 MCV 83 fl (84-94) L 11/16/18 03:50 MCH 25 pg (28-32) L 11/16/18 03:50 MCHC 31 % (32-34) L 11/16/18 03:50 RDW 22.0 % (13.2-15.2) H 11/16/18 03:50 Plt Count 105 K/mm3 (140-440) L 11/16/18 03:50 Lymph % (Auto) Disc Inspector 11/16/18 03:50 Dickson % (Auto) Disc Inspector 11/16/18 03:50 Eos % (Auto) Disc Inspector 11/16/18 03:50 Baso % (Auto) Disc Inspector 11/16/18 03:50 Lymph # Disc Inspector 11/16/18 03:50 Dickson # Disc Inspector 11/16/18 03:50 Eos # Disc Inspector 11/16/18 03:50 Baso # Disc Inspector 11/16/18 03:50 Add Manual Diff Complete 11/16/18 03:50 Total Counted 100 11/16/18 03:50 Seg Neutrophils % Disc Inspector 11/16/18 03:50 Seg Neuts % (Manual) 91.0 % (40.0-70.0) H 11/16/18 03:50 Band Neutrophils % 0 % 11/16/18 03:50 Lymphocytes % (Manual) 7.0 % (13.4-35.0) L 11/16/18 03:50 Reactive Lymphs % (Man) 1.0 % 11/16/18 03:50 Monocytes % (Manual) 1.0 % (0.0-7.3) 11/16/18 03:50 Eosinophils % (Manual) 0 % (0.0-4.3) 11/16/18 03:50 Basophils % (Manual) 0 % (0.0-1.8) 11/16/18 03:50 Metamyelocytes % 0 % 11/16/18 03:50 Myelocytes % 0 % 11/16/18 03:50 Promyelocytes % 0 % 11/16/18 03:50 Blast Cells % 0 % 11/16/18 03:50 Nucleated RBC % Not Reportable 11/16/18 03:50 Seg Neutrophils # Disc Inspector 11/16/18 03:50 Seg Neutrophils # Man 2.1 K/mm3 (1.8-7.7) 11/16/18 03:50 Band Neutrophils # 0.0 K/mm3 11/16/18 03:50 Lymphocytes # (Manual) 0.2 K/mm3 (1.2-5.4) L 11/16/18 03:50 Abs React Lymphs (Man) 0.0 K/mm3 11/16/18 03:50 Monocytes # (Manual) 0.0 K/mm3 (0.0-0.8) 11/16/18 03:50 Eosinophils # (Manual) 0.0 K/mm3 (0.0-0.4) 11/16/18 03:50 Basophils # (Manual) 0.0 K/mm3 (0.0-0.1) 11/16/18 03:50 Metamyelocytes # 0.0 K/mm3 11/16/18 03:50 Myelocytes # 0.0 K/mm3 11/16/18 03:50 Promyelocytes # 0.0 K/mm3 11/16/18 03:50 Blast Cells # 0.0 K/mm3 11/16/18 03:50 WBC Morphology Not Reportable 11/16/18 03:50 Hypersegmented Neuts Not Reportable 11/16/18 03:50 Hyposegmented Neuts Not Reportable 11/16/18 03:50 Hypogranular Neuts Not Reportable 11/16/18 03:50 Smudge Cells Not Reportable 11/16/18 03:50 Toxic Granulation Not Reportable 11/16/18 03:50 Toxic Vacuolation Not Reportable 11/16/18 03:50 Dohle Bodies Not Reportable 11/16/18 03:50 Pelger-Huet Anomaly Not Reportable 11/16/18 03:50 Tramaine Rods Not Reportable 11/16/18 03:50 Platelet Estimate Consistent w auto 11/16/18 03:50 Clumped Platelets Not Reportable 11/16/18 03:50 Plt Clumps, EDTA Not Reportable 11/16/18 03:50 Large Platelets Not Reportable 11/16/18 03:50 Giant Platelets Not Reportable 11/16/18 03:50 Platelet Satelliting Not Reportable 11/16/18 03:50 Plt Morphology Comment Not Reportable 11/16/18 03:50 RBC Morphology Not Reportable 11/16/18 03:50 Dimorphic RBCs Not Reportable 11/16/18 03:50 Polychromasia Not Reportable 11/16/18 03:50 Hypochromasia Not Reportable 11/16/18 03:50 Poikilocytosis Not Reportable 11/16/18 03:50 Anisocytosis 1+ 11/16/18 03:50 Microcytosis Not Reportable 11/16/18 03:50 Macrocytosis Not Reportable 11/16/18 03:50 Spherocytes Not Reportable 11/16/18 03:50 Pappenheimer Bodies Not Reportable 11/16/18 03:50 Sickle Cells Not Reportable 11/16/18 03:50 Target Cells 1+ 11/16/18 03:50 Tear Drop Cells Not Reportable 11/16/18 03:50 Ovalocytes Not Reportable 11/16/18 03:50 Helmet Cells Not Reportable 11/16/18 03:50 Zhou-[place] Bodies Not Reportable 11/16/18 03:50 [place] Rings Not Reportable 11/16/18 03:50 Hebert Cells Not Reportable 11/16/18 03:50 Bite Cells Not Reportable 11/16/18 03:50 Crenated Cell Not Reportable 11/16/18 03:50 Elliptocytes Not Reportable 11/16/18 03:50 Acanthocytes (Spur) Not Reportable 11/16/18 03:50 Rouleaux Not Reportable 11/16/18 03:50 Hemoglobin C Crystals Not Reportable 11/16/18 03:50 Schistocytes Not Reportable 11/16/18 03:50 Malaria parasites Not Reportable 11/16/18 03:50 Jsoe Juan Bodies Not Reportable 11/16/18 03:50 Hem Pathologist Commnt No 11/16/18 03:50 PT 16.0 Sec. (12.2-14.9) H 11/13/18 11:43 INR 1.20 (0.87-1.13) H 11/13/18 11:43 APTT 36.5 Sec. (24.2-36.6) 11/13/18 11:43 Sodium 137 mmol/L (137-145) 11/16/18 03:50 Potassium 3.9 mmol/L (3.6-5.0) 11/16/18 03:50 Chloride 99.3 mmol/L (98-107) 11/16/18 03:50 Carbon Dioxide 26 mmol/L (22-30) 11/16/18 03:50 Anion Gap 16 mmol/L 11/16/18 03:50 BUN 25 mg/dL (9-20) H 11/16/18 03:50 Creatinine 3.9 mg/dL (0.8-1.5) H 11/16/18 03:50 Estimated GFR 19 ml/min 11/16/18 03:50 BUN/Creatinine Ratio 6 % 11/16/18 03:50 Glucose 119 mg/dL (75-100) H 11/16/18 03:50 POC Glucose 136 (70-105) H 11/15/18 23:26 Hemoglobin A1c 4.9 % (4-6) 11/13/18 11:43 Calcium 9.2 mg/dL (8.4-10.2) 11/16/18 03:50 Iron 18 ug/dL (49-181) L 11/14/18 06:25 TIBC 55 mcg/dL (250-450) L 11/14/18 06:25 % Saturation 32.73 % 11/14/18 06:25 Transferrin 49 mg/dl (180-329) L 11/14/18 06:25 Total Bilirubin 0.20 mg/dL (0.1-1.2) 11/14/18 06:25 AST < 5 units/L (5-40) L 11/14/18 06:25 ALT < 5 units/L (7-56) L 11/14/18 06:25 Alkaline Phosphatase 73 units/L (35-129) 11/14/18 06:25 Total Protein 5.8 g/dL (6.3-8.2) L 11/14/18 06:25 Albumin 2.1 g/dL (3.9-5) L 11/14/18 06:25 Albumin/Globulin Ratio 0.6 % 11/14/18 06:25 Vitamin B12 603.4 pg/mL (211-911) 11/14/18 09:00 TSH 4.280 mlU/mL (0.270-4.200) H 11/13/18 11:43 Free T4 0.80 ng/dL (0.76-1.46) 11/13/18 11:43 Blood Type O POSITIVE 11/14/18 12:17 Antibody Screen Negative 11/14/18 12:17 Crossmatch See Detail 11/14/18 12:17 Active Medications - Current Medications Current Medications: Generic Name Dose Route Start Last Admin Trade Name Freq PRN Reason Stop Dose Admin Acetaminophen 650 mg 11/13/18 21:14 Tylenol PO Q4H PRN Pain MILD(1-3)/Fever >100.5/HILL Acetaminophen 1,000 mg 11/13/18 21:38 Tylenol PO Q12H PRN Pain, Mild (1-3) Lipase/Protease/Amylase 1 each 11/15/18 08:07 Pancreaze 10,500 Unit FEEDTUBE PRN PRN For Clogged Feeding Tube Aspirin 81 mg 11/14/18 10:00 11/16/18 11:03 Halfprin Ec PO 81 mg DAILY SANCHEZ Administration Dextrose 25 ml 11/14/18 13:39 D50w (25gm) Syringe IV PRN PRN Hypoglycemia Docusate Sodium 100 mg 11/13/18 22:00 11/16/18 11:05 Colace PO Not Given BID SANCHEZ Epoetin Solitario 10,000 unit 11/14/18 14:40 11/15/18 17:49 Procrit IV 10,000 unit UMA PRN Administration hemoglobin less than 10 Famotidine 20 mg 11/14/18 10:00 11/16/18 11:03 Pepcid PO 20 mg DAILY SANCHEZ Administration Folic Acid 1 mg 11/14/18 10:00 11/16/18 11:03 Folvite PO 1 mg DAILY SANCHEZ Administration Gabapentin 100 mg 11/13/18 22:00 11/15/18 23:25 Neurontin PO 100 mg QHS SANCHEZ Administration Heparin Sodium (Porcine) 5,000 unit 11/13/18 22:00 11/16/18 11:04 Heparin SUB-Q 5,000 unit Q12HR SANCHEZ Administration Hydralazine HCl 25 mg 11/13/18 22:00 11/16/18 07:49 Apresoline PO Not Given Q8HR SANCHEZ Hydrocortisone Sodium Succinate 100 mg 11/14/18 11:00 11/16/18 07:45 Solu-Cortef IV 100 mg Q8HR SANCHEZ Administration Hydromorphone HCl 0.25 mg 11/13/18 21:35 11/14/18 01:39 Dilaudid IV 0.25 mg Q3H PRN Administration Pain, Moderate (4-6) Norepinephrine 4 mg in 250 mls @ 37.5 mls/hr 11/14/18 04:00 11/16/18 00:00 Levophed Drip 4 Mg/Ns 250 Ml IV 0 mcg/min TITR SANCHEZ 0 mls/hr Titration Protocol 10 MCG/MIN Cefepime HCl 1 gm in 100 mls @ 200 mls/hr 11/14/18 10:00 11/16/18 11:03 Maxipime/Ns 1 Gm/100 Ml IV 200 mls/hr Q24HR SANCHEZ Administration Protocol Ferric Sodium Gluconate 110 mls @ 100 mls/hr 11/14/18 11:00 11/16/18 11:04 Complex 125 mg/ Sodium IV 11/18/18 11:05 100 mls/hr Chloride QDAY SANCHEZ Administration Ondansetron HCl 4 mg 11/13/18 21:14 Zofran IV Q8H PRN Nausea And Vomiting Polyethylene Glycol 17 gm 11/14/18 10:00 11/16/18 11:03 Miralax 3350 PO 17 gm QDAY SANCHEZ Administration Risperidone 1 mg 11/14/18 10:00 11/16/18 11:03 Risperdal PO 1 mg QAM SANCHEZ Administration Risperidone 0.5 mg 11/13/18 22:00 11/15/18 23:26 Risperdal PO 0.5 mg HS SANCHEZ Administration Sertraline HCl 100 mg 11/14/18 10:00 11/16/18 11:03 Zoloft PO 100 mg QDAY SANCHEZ Administration Simple Syrup 15 ml 11/15/18 08:07 Simple Syrup FEEDTUBE PRN PRN Hypoglycemia Simple Syrup 30 ml 11/15/18 08:07 Simple Syrup FEEDTUBE PRN PRN Hypoglycemia Sodium Bicarbonate 325 mg 11/15/18 08:07 Sodium Bicarbonate FEEDTUBE PRN PRN For Clogged Feeding Tube Sodium Chloride 10 ml 11/13/18 22:00 11/15/18 23:26 Sodium Chloride Flush Syringe 10 Ml IV 10 ml BID SANCHEZ Administration Sodium Chloride 10 ml 11/13/18 21:14 Sodium Chloride Flush Syringe 10 Ml IV PRN PRN LINE FLUSH Nutrition/Malnutrition Assess - Dietary Evaluation Nutrition/Malnutrition Findings: Nutrition Notes Start: 11/14/18 10:54 Freq: Status: Active Protocol: Document 11/14/18 10:54 LP (Rec: 11/14/18 10:59 LP [id number]) Nutrition Notes Need for Assessment generated from: MD Order Initial or Follow up Assessment Current Diagnosis CKD (stage V CKD),Diabetes, Sepsis,Hypertension,Heart Failure,Malnutrition,Stroke Other Pertinent Diagnosis on HD Current Diet Renal Labs/Tests Na 131 BUN 33 Cr 4.8 Pertinent Medications NS at 42ml/hr Height 5 ft 11 in Weight 108.3 kg [place] Body Weight (kg) 78.18 BMI 33.3 Subjective/Other Information Consult for malnutrition and TF. Pt lethargic and MD to place dobhoff due to not eating this AM. Unable to obtain nutrition hx from pt. Burn Absent Trauma Absent #1 Nutrition Diagnosis Inadequate oral intake Etiology lethargy As Evidenced by Signs and Symptoms MD to place dobhoff due to not eating Is patient on ventilator? No Is Patient Ambulatory and/or Out of Bed No REE-([facility]-confined to bed) 2278.992 Kcal/Kg value to use for calculation 18 Approximate Energy Requirements Using 1949 kcal/Kg Calculation Used for Recommendations Kcal/kg Additional Notes Protein needs are 108-130g (1- 1.2g/kg) Fluid needs are 1ml/kcal or per MD Nutrition Intervention Change Diet Order: TF Nutrition Support: Nepro at 45ml/hr Flush with 150ml q4h or per MD Kcal 1,944 Protein (gm) 87 Fluid (mL) 785 Goal #1 Meet at least 80% of kcal and protein needs via TF Anticipated Discharge Needs: Unable to determine at this time Follow-Up By: 11/17/18 Additional Comments Follow for TF start/tolerance
--- NOTE | 2018-11-16 13:44 | Progress Note ---
Assessment and Plan 63 y/o male admitted with hypotension, hypothermia and bradycardia, etiologies of all 3 unknown. 1. Continue empiric abx therapy until cultures have resulted. 2. BP better today. Stable. continue Stress dose steroids and start to wean tomorrow. 3. Will given 1 unit of PRBC's with HD and now HgB is 14? Will repeat this today. Doubt 14 is accurate 4. Severe Iron deficiency anemia. Will give IV iron for the next 4 days. MCV low at 81. 5. Appreciate [facility] Heart recs 6. Continue feeds via DH 7. Hold all antihypertensives and rate controlling agents at least until Saturday 8. Overall prognosis is guarded. 9. Stopped risperadol and zoloft for now. 10 If bed is needed could go to step down or tele floor, otherwise, will keep in ICU given change in mental state. Subjective Date of service: 11/16/18 Principal diagnosis: Hypotension, hypothermia, bradycardia, perm AF, ESRD, DM, Anemia Interval history: Patient's numbers have improved but mental status is worse this am. Per nurse, patient got Antipsychotic and antidepressant today and yesterday but these meds were given, after I saw him yesterday. Objective - Constitutional Vitals: Vital Signs - 12hr 11/16/18 11/16/18 11/16/18 01:45 02:00 02:01 Temperature Pulse Rate 95 H 95 H Respiratory 9 L 12 10 L Rate Blood Pressure 138/73 129/77 O2 Sat by Pulse 97 96 99 Oximetry 11/16/18 11/16/18 11/16/18 02:15 02:30 02:45 Temperature Pulse Rate 88 81 89 Respiratory 11 L 8 L 7 L Rate Blood Pressure 182/161 120/60 136/71 O2 Sat by Pulse 98 94 95 Oximetry 11/16/18 11/16/18 11/16/18 03:00 03:15 03:30 Temperature Pulse Rate 76 81 86 Respiratory 7 L 8 L 7 L Rate Blood Pressure 125/72 144/73 137/68 O2 Sat by Pulse 94 96 95 Oximetry 11/16/18 11/16/18 11/16/18 03:45 04:00 04:15 Temperature 98.0 F Pulse Rate 85 89 96 H Respiratory 8 L 9 L 8 L Rate Blood Pressure 140/65 148/66 135/58 O2 Sat by Pulse 95 95 98 Oximetry 0411/16/18 11/16/18 04:30 04:45 05:00 Temperature Pulse Rate 90 88 89 Respiratory 7 L 7 L 8 L Rate Blood Pressure 139/70 144/74 144/74 O2 Sat by Pulse 95 94 99 Oximetry 11/16/18 11/16/18 11/16/18 05:15 05:31 05:45 Temperature Pulse Rate 88 85 80 Respiratory 9 L 7 L 8 L Rate Blood Pressure 142/71 129/68 149/72 O2 Sat by Pulse 95 95 95 Oximetry 11/16/18 11/16/18 11/16/18 06:00 06:15 06:30 Temperature Pulse Rate 87 89 86 Respiratory 8 L 8 L 10 L Rate Blood Pressure 138/74 141/73 158/81 O2 Sat by Pulse 96 94 97 Oximetry 11/16/18 11/16/18 11/16/18 06:45 07:00 07:15 Temperature Pulse Rate 91 H 83 84 Respiratory 8 L 8 L 8 L Rate Blood Pressure 146/67 136/65 133/70 O2 Sat by Pulse 98 95 94 Oximetry 11/16/18 11/16/18 11/16/18 07:30 07:45 08:00 Temperature 98.3 F Pulse Rate 82 86 92 H Respiratory 8 L 7 L 8 L Rate Blood Pressure 150/76 138/74 148/73 O2 Sat by Pulse 95 95 98 Oximetry 11/16/18 11/16/18 11/16/18 08:15 08:30 08:45 Temperature Pulse Rate 86 84 81 Respiratory 8 L 7 L 8 L Rate Blood Pressure 130/62 151/75 129/67 O2 Sat by Pulse 95 95 95 Oximetry 11/16/18 11/16/18 11/16/18 09:00 09:15 09:30 Temperature Pulse Rate 90 88 86 Respiratory 8 L 7 L 7 L Rate Blood Pressure 149/71 129/67 148/75 O2 Sat by Pulse 95 99 94 Oximetry 11/16/18 11/16/18 11/16/18 09:45 10:00 10:15 Temperature Pulse Rate 84 81 82 Respiratory 8 L 8 L 9 L Rate Blood Pressure 140/71 146/68 141/61 O2 Sat by Pulse 95 95 94 Oximetry 11/16/18 11/16/18 11/16/18 10:30 10:45 11:00 Temperature Pulse Rate 77 81 73 Respiratory 9 L 9 L 8 L Rate Blood Pressure 132/57 138/55 138/68 O2 Sat by Pulse 95 94 95 Oximetry 11/16/18 11/16/18 11/16/18 11:15 11:30 11:45 Temperature Pulse Rate 83 76 77 Respiratory 8 L 8 L 8 L Rate Blood Pressure 135/73 130/64 151/63 O2 Sat by Pulse 94 95 94 Oximetry 11/16/18 11/16/18 11/16/18 12:00 12:15 12:30 Temperature 97.1 F L Pulse Rate 76 82 78 Respiratory 9 L 9 L 9 L Rate Blood Pressure 130/64 140/67 137/68 O2 Sat by Pulse 95 95 94 Oximetry 11/16/18 12:45 Temperature Pulse Rate 81 Respiratory 7 L Rate Blood Pressure 152/69 O2 Sat by Pulse 95 Oximetry General appearance: Present: no acute distress, well-nourished, obese, other (depressed mental state today.) - Respiratory Respiratory: bilateral: CTA - Labs CBC & Chem 7: 11/16/18 03:50 11/16/18 03:50 Labs: Abnormal lab results 11/14/18 11/15/18 11/15/18 Range/Units 12:17 17:51 23:26 WBC (4.5-11.0) K/mm3 RBC (3.65-5.03) M/mm3 Hct (35.5-45.6) % MCV (84-94) fl MCH (28-32) pg MCHC (32-34) % RDW (13.2-15.2) % Plt Count (140-440) K/mm3 Seg Neuts % (Manual) (40.0-70.0) % Lymphocytes % (Manual) (13.4-35.0) % Lymphocytes # (Manual) (1.2-5.4) K/mm3 BUN (9-20) mg/dL Creatinine (0.8-1.5) mg/dL Glucose (75-100) mg/dL POC Glucose 138 H 136 H (70-105) Crossmatch See Detail 11/16/18 11/16/18 11/16/18 Range/Units 03:50 03:50 12:24 WBC 2.3 L (4.5-11.0) K/mm3 RBC 5.71 H (3.65-5.03) M/mm3 Hct 47.1 H D (35.5-45.6) % MCV 83 L (84-94) fl MCH 25 L (28-32) pg MCHC 31 L (32-34) % RDW 22.0 H (13.2-15.2) % Plt Count 105 L (140-440) K/mm3 Seg Neuts % (Manual) 91.0 H (40.0-70.0) % Lymphocytes % (Manual) 7.0 L (13.4-35.0) % Lymphocytes # (Manual) 0.2 L (1.2-5.4) K/mm3 BUN 25 H (9-20) mg/dL Creatinine 3.9 H (0.8-1.5) mg/dL Glucose 119 H (75-100) mg/dL POC Glucose 132 H (70-105) Crossmatch Medications & Allergies - Medications Allergies/Adverse Reactions: Allergies haloperidol [From Haldol] Adverse Reaction (Verified 03/13/18 12:10) Unknown haloperidol lactate [From Haldol] Adverse Reaction (Verified 03/13/18 12:10) Unknown Home Medications: Home Medications Medication Instructions Recorded Confirmed Last Taken Type Gabapentin [Neurontin] 100 mg PO QHS #60 capsule 10/02/17 11/14/18 01/19/18 19:00 Rx Acetaminophen [Acetaminophen TAB] 1,000 mg PO Q12H PRN 03/13/18 11/14/18 Unknown History Insulin Aspart [NovoLOG Flexpen] 0 units SUB-Q QWEEK 03/13/18 11/14/18 Unknown History risperiDONE [RisperDAL] 1 mg PO QAM 03/13/18 11/14/18 Unknown History Aspirin EC [Aspirin Enteric Coated 81 mg PO DAILY 03/18/18 11/14/18 Unknown History TAB] Docusate Sodium [Colace CAP] 100 mg PO BID 03/18/18 11/14/18 Unknown History Folic Acid [Folvite] 1 mg PO DAILY 03/18/18 11/14/18 Unknown History ISOSORBIDE MONOnitrate [Imdur ER] 30 mg PO DAILY 03/18/18 11/14/18 Unknown History Metoprolol [Lopressor TAB] 50 mg PO BID 03/18/18 11/14/18 Unknown History Minoxidil [Loniten] 2.5 mg PO BID 03/18/18 11/14/18 Unknown History Sevelamer Carbonate [Renvela] 800 mg PO TIDWM 03/18/18 11/14/18 Unknown History Famotidine [Pepcid] 20 mg PO DAILY #30 tablet 06/09/18 11/14/18 Unknown Rx Sertraline [Zoloft] 100 mg PO QDAY 08/26/18 11/14/18 Unknown History risperiDONE [RisperDAL] 0.5 mg PO HS 08/26/18 11/14/18 Unknown History hydrALAZINE [Apresoline TAB] 25 mg PO Q8HR tablet 09/02/18 11/14/18 Unknown Rx Polyethylene Glycol 3350 [Miralax 17 gm PO QDAY #30 packet 11/05/18 11/14/18 Unknown Rx 3350] levoFLOXacin [Levaquin TAB] 500 mg PO Q48HR #3 tablet 11/05/18 11/14/18 Unknown Rx Active Medications: Generic Name Dose Route Start Last Admin Trade Name Freq PRN Reason Stop Dose Admin Acetaminophen 650 mg 11/13/18 21:14 Tylenol PO Q4H PRN Pain MILD(1-3)/Fever >100.5/HILL Acetaminophen 1,000 mg 11/13/18 21:38 Tylenol PO Q12H PRN Pain, Mild (1-3) Lipase/Protease/Amylase 1 each 11/15/18 08:07 Pancrejewel Barrientos 10,500 Unit FEEDTUBE PRN PRN For Clogged Feeding Tube Aspirin 81 mg 11/14/18 10:00 11/16/18 11:03 Halfprin Ec PO 81 mg DAILY SANCHEZ Administration Dextrose 25 ml 11/14/18 13:39 D50w (25gm) Syringe IV PRN PRN Hypoglycemia Docusate Sodium 100 mg 11/13/18 22:00 11/16/18 11:05 Colace PO Not Given BID SANCHEZ Epoetin Solitario 10,000 unit 11/14/18 14:40 11/15/18 17:49 Procrit IV 10,000 unit UMA PRN Administration hemoglobin less than 10 Famotidine 20 mg 11/14/18 10:00 11/16/18 11:03 Pepcid PO 20 mg DAILY SANCHEZ Administration Folic Acid 1 mg 11/14/18 10:00 11/16/18 11:03 Folvite PO 1 mg DAILY SANCHEZ Administration Gabapentin 100 mg 11/13/18 22:00 11/15/18 23:25 Neurontin PO 100 mg QHS SANCHEZ Administration Heparin Sodium (Porcine) 5,000 unit 11/13/18 22:00 11/16/18 11:04 Heparin SUB-Q 5,000 unit Q12HR SANCHEZ Administration Hydralazine HCl 25 mg 11/13/18 22:00 11/16/18 07:49 Apresoline PO Not Given Q8HR SANCHEZ Hydrocortisone Sodium Succinate 100 mg 11/14/18 11:00 11/16/18 07:45 Solu-Cortef IV 100 mg Q8HR SANCHEZ Administration Norepinephrine 4 mg in 250 mls @ 37.5 mls/hr 11/14/18 04:00 11/16/18 00:00 Levophed Drip 4 Mg/Ns 250 Ml IV 0 mcg/min TITR SANCHEZ 0 mls/hr Titration Protocol 10 MCG/MIN Cefepime HCl 1 gm in 100 mls @ 200 mls/hr 11/14/18 10:00 11/16/18 11:03 Maxipime/Ns 1 Gm/100 Ml IV 200 mls/hr Q24HR SANCHEZ Administration Protocol Ferric Sodium Gluconate 110 mls @ 100 mls/hr 11/14/18 11:00 11/16/18 11:04 Complex 125 mg/ Sodium IV 11/18/18 11:05 100 mls/hr Chloride QDAY SANCHEZ Administration Ondansetron HCl 4 mg 11/13/18 21:14 Zofran IV Q8H PRN Nausea And Vomiting Polyethylene Glycol 17 gm 11/14/18 10:00 11/16/18 11:03 Miralax 3350 PO 17 gm QDAY SANCHEZ Administration Simple Syrup 15 ml 11/15/18 08:07 Simple Syrup FEEDTUBE PRN PRN Hypoglycemia Simple Syrup 30 ml 11/15/18 08:07 Simple Syrup FEEDTUBE PRN PRN Hypoglycemia Sodium Bicarbonate 325 mg 11/15/18 08:07 Sodium Bicarbonate FEEDTUBE PRN PRN For Clogged Feeding Tube Sodium Chloride 10 ml 11/13/18 22:00 11/15/18 23:26 Sodium Chloride Flush Syringe 10 Ml IV 10 ml BID SANCHEZ Administration Sodium Chloride 10 ml 11/13/18 21:14 Sodium Chloride Flush Syringe 10 Ml IV PRN PRN LINE FLUSH
--- NOTE | 2018-11-16 14:10 | Progress Note ---
Assessment and Plan Impression: * End stage renal disease * Sepsis * Bradycardia * Schizophrenia * Chronic atrial fibrillation * Coronary artery disease * History of CVA * Anemia secondary to ESRD Plan: * Patient is s/p dialysis yesterday; no emergent need for dialysis today * Continue TTS schedule * UF as tolerated * Pressors prn maintain MAP>65 * Cardiology recommendations reviewed * Empiric abx per primary team * Dose medications for renal function * Epogen TID prn Subjective Date of service: 11/16/18 Principal diagnosis: Hypotension, hypothermia, bradycardia, perm AF, ESRD, DM, Anemia Interval history: No acute events overnight. He remains off pressors. Objective - Vital Signs Vital signs: Vital Signs - 12hr 11/16/18 11/16/18 11/16/18 02:15 02:30 02:45 Temperature Pulse Rate 88 81 89 Respiratory 11 L 8 L 7 L Rate Blood Pressure 182/161 120/60 136/71 O2 Sat by Pulse 98 94 95 Oximetry 11/16/18 11/16/18 11/16/18 03:00 03:15 03:30 Temperature Pulse Rate 76 81 86 Respiratory 7 L 8 L 7 L Rate Blood Pressure 125/72 144/73 137/68 O2 Sat by Pulse 94 96 95 Oximetry 11/16/18 11/16/18 11/16/18 03:45 04:00 04:15 Temperature 98.0 F Pulse Rate 85 89 96 H Respiratory 8 L 9 L 8 L Rate Blood Pressure 140/65 148/66 135/58 O2 Sat by Pulse 95 95 98 Oximetry 11/16/18 11/16/18 11/16/18 04:30 04:45 05:00 Temperature Pulse Rate 90 88 89 Respiratory 7 L 7 L 8 L Rate Blood Pressure 139/70 144/74 144/74 O2 Sat by Pulse 95 94 99 Oximetry 11/16/18 11/16/18 11/16/18 05:15 05:31 05:45 Temperature Pulse Rate 88 85 80 Respiratory 9 L 7 L 8 L Rate Blood Pressure 142/71 129/68 149/72 O2 Sat by Pulse 95 95 95 Oximetry 11/16/18 11/16/18 11/16/18 06:00 06:15 06:30 Temperature Pulse Rate 87 89 86 Respiratory 8 L 8 L 10 L Rate Blood Pressure 138/74 141/73 158/81 O2 Sat by Pulse 96 94 97 Oximetry 11/16/18 11/16/18 11/16/18 06:45 07:00 07:15 Temperature Pulse Rate 91 H 83 84 Respiratory 8 L 8 L 8 L Rate Blood Pressure 146/67 136/65 133/70 O2 Sat by Pulse 98 95 94 Oximetry 11/16/18 11/16/18 11/16/18 07:30 07:45 08:00 Temperature 98.3 F Pulse Rate 82 86 92 H Respiratory 8 L 7 L 8 L Rate Blood Pressure 150/76 138/74 148/73 O2 Sat by Pulse 95 95 98 Oximetry 11/16/18 11/16/18 11/16/18 08:15 08:30 08:45 Temperature Pulse Rate 86 84 81 Respiratory 8 L 7 L 8 L Rate Blood Pressure 130/62 151/75 129/67 O2 Sat by Pulse 95 95 95 Oximetry 11/16/18 11/16/18 11/16/18 09:00 09:15 09:30 Temperature Pulse Rate 90 88 86 Respiratory 8 L 7 L 7 L Rate Blood Pressure 149/71 129/67 148/75 O2 Sat by Pulse 95 99 94 Oximetry 11/16/18 11/16/18 11/16/18 09:45 10:00 10:15 Temperature Pulse Rate 84 81 82 Respiratory 8 L 8 L 9 L Rate Blood Pressure 140/71 146/68 141/61 O2 Sat by Pulse 95 95 94 Oximetry 11/16/18 11/16/18 11/16/18 10:30 10:45 11:00 Temperature Pulse Rate 77 81 73 Respiratory 9 L 9 L 8 L Rate Blood Pressure 132/57 138/55 138/68 O2 Sat by Pulse 95 94 95 Oximetry 11/16/18 11/16/18 11/16/18 11:15 11:30 11:45 Temperature Pulse Rate 83 76 77 Respiratory 8 L 8 L 8 L Rate Blood Pressure 135/73 130/64 151/63 O2 Sat by Pulse 94 95 94 Oximetry 11/16/18 11/16/18 11/16/18 12:00 12:15 12:30 Temperature 97.1 F L Pulse Rate 76 82 78 Respiratory 9 L 9 L 9 L Rate Blood Pressure 130/64 140/67 137/68 O2 Sat by Pulse 95 95 94 Oximetry 11/16/18 12:45 Temperature Pulse Rate 81 Respiratory 7 L Rate Blood Pressure 152/69 O2 Sat by Pulse 95 Oximetry - General Appearance General appearance: well-developed, well-nourished EENT: ATNC, other (NGT in place) Respiratory: Present: Clear to Ascultation Cardiology: regular, S1S2 Gastrointestinal: normal, no tenderness, no distended Musculoskeletal: other (+ edema) Psychiatric: cooperative - Lab 11/16/18 13:53 11/16/18 03:50 Most recent lab results Calcium 9.2 mg/dL (8.4-10.2) 11/16/18 03:50 Medications & Allergies - Medications Allergies/Adverse Reactions: Allergies haloperidol [From Haldol] Adverse Reaction (Verified 03/13/18 12:10) Unknown haloperidol lactate [From Haldol] Adverse Reaction (Verified 03/13/18 12:10) Unknown Home Medications: Home Medications Medication Instructions Recorded Confirmed Last Taken Type Gabapentin [Neurontin] 100 mg PO QHS #60 capsule 10/02/17 11/14/18 01/19/18 19:00 Rx Acetaminophen [Acetaminophen TAB] 1,000 mg PO Q12H PRN 03/13/18 11/14/18 Unknown History Insulin Aspart [NovoLOG Flexpen] 0 units SUB-Q QWEEK 03/13/18 11/14/18 Unknown History risperiDONE [RisperDAL] 1 mg PO QAM 03/13/18 11/14/18 Unknown History Aspirin EC [Aspirin Enteric Coated 81 mg PO DAILY 03/18/18 11/14/18 Unknown History TAB] Docusate Sodium [Colace CAP] 100 mg PO BID 03/18/18 11/14/18 Unknown History Folic Acid [Folvite] 1 mg PO DAILY 03/18/18 11/14/18 Unknown History ISOSORBIDE MONOnitrate [Imdur ER] 30 mg PO DAILY 03/18/18 11/14/18 Unknown Hist ory Metoprolol [Lopressor TAB] 50 mg PO BID 03/18/18 11/14/18 Unknown History Minoxidil [Loniten] 2.5 mg PO BID 03/18/18 11/14/18 Unknown History Sevelamer Carbonate [Renvela] 800 mg PO TIDWM 03/18/18 11/14/18 Unknown History Famotidine [Pepcid] 20 mg PO DAILY #30 tablet 06/09/18 11/14/18 Unknown Rx Sertraline [Zoloft] 100 mg PO QDAY 08/26/18 11/14/18 Unknown History risperiDONE [RisperDAL] 0.5 mg PO HS 08/26/18 11/14/18 Unknown History hydrALAZINE [Apresoline TAB] 25 mg PO Q8HR tablet 09/02/18 11/14/18 Unknown Rx Polyethylene Glycol 3350 [Miralax 17 gm PO QDAY #30 packet 11/05/18 11/14/18 Unknown Rx 3350] levoFLOXacin [Levaquin TAB] 500 mg PO Q48HR #3 tablet 11/05/18 11/14/18 Unknown Rx Active Medications: Generic Name Dose Route Start Last Admin Trade Name Freq PRN Reason Stop Dose Admin Acetaminophen 650 mg 11/13/18 21:14 Tylenol PO Q4H PRN Pain MILD(1-3)/Fever >100.5/HILL Acetaminophen 1,000 mg 11/13/18 21:38 Tylenol PO Q12H PRN Pain, Mild (1-3) Lipase/Protease/Amylase 1 each 11/15/18 08:07 Pancreaze 10,500 Unit FEEDTUBE PRN PRN For Clogged Feeding Tube Aspirin 81 mg 11/14/18 10:00 11/16/18 11:03 Halfprin Ec PO 81 mg DAILY SANCHEZ Administration Dextrose 25 ml 11/14/18 13:39 D50w (25gm) Syringe IV PRN PRN Hypoglycemia Docusate Sodium 100 mg 11/13/18 22:00 11/16/18 11:05 Colace PO Not Given BID SANCHEZ Epoetin Solitario 10,000 unit 11/14/18 14:40 11/15/18 17:49 Procrit IV 10,000 unit UMA PRN Administration hemoglobin less than 10 Famotidine 20 mg 11/14/18 10:00 11/16/18 11:03 Pepcid PO 20 mg DAILY SANCHEZ Administration Folic Acid 1 mg 11/14/18 10:00 11/16/18 11:03 Folvite PO 1 mg DAILY SANCHEZ Administration Gabapentin 100 mg 11/13/18 22:00 11/15/18 23:25 Neurontin PO 100 mg QHS SANCHEZ Administration Heparin Sodium (Porcine) 5,000 unit 11/13/18 22:00 11/16/18 11:04 Heparin SUB-Q 5,000 unit Q12HR SANCHEZ Administration Hydralazine HCl 25 mg 11/13/18 22:00 11/16/18 07:49 Apresoline PO Not Given Q8HR SANCHEZ Hydrocortisone Sodium Succinate 100 mg 11/14/18 11:00 11/16/18 07:45 Solu-Cortef IV 100 mg Q8HR SANCHEZ Administration Norepinephrine 4 mg in 250 mls @ 37.5 mls/hr 11/14/18 04:00 11/16/18 00:00 Levophed Drip 4 Mg/Ns 250 Ml IV 0 mcg/min TITR SANCHEZ 0 mls/hr Titration Protocol 10 MCG/MIN Cefepime HCl 1 gm in 100 mls @ 200 mls/hr 11/14/18 10:00 11/16/18 11:03 Maxipime/Ns 1 Gm/100 Ml IV 200 mls/hr Q24HR SANCHEZ Administration Protocol Ferric Sodium Gluconate 110 mls @ 100 mls/hr 11/14/18 11:00 11/16/18 11:04 Complex 125 mg/ Sodium IV 11/18/18 11:05 100 mls/hr Chloride QDAY SANCHEZ Administration Ondansetron HCl 4 mg 11/13/18 21:14 Zofran IV Q8H PRN Nausea And Vomiting Polyethylene Glycol 17 gm 11/14/18 10:00 11/16/18 11:03 Miralax 3350 PO 17 gm QDAY SANCHEZ Administration Simple Syrup 15 ml 11/15/18 08:07 Simple Syrup FEEDTUBE PRN PRN Hypoglycemia Simple Syrup 30 ml 11/15/18 08:07 Simple Syrup FEEDTUBE PRN PRN Hypoglycemia Sodium Bicarbonate 325 mg 11/15/18 08:07 Sodium Bicarbonate FEEDTUBE PRN PRN For Clogged Feeding Tube Sodium Chloride 10 ml 11/13/18 22:00 11/15/18 23:26 Sodium Chloride Flush Syringe 10 Ml IV 10 ml BID SANCHEZ Administration Sodium Chloride 10 ml 11/13/18 21:14 Sodium Chloride Flush Syringe 10 Ml IV PRN PRN LINE FLUSH
[2018-11-16] MEDS: SODIUM CHLORIDE FLUSH SYRINGE 10 ML IV SCH (14:17)
[2018-11-16 15:02] LABS: Hematocrit 33.3 % (35.5-45.6); Hemoglobin 10.2 gm/dl (11.8-15.2); Mean Corpuscular HGB Conc 31 % (32-34); Mean Corpuscular Volume 83 fl (84-94); Platelet Count 178 K/mm3 (140-440)
[2018-11-16 15:04] LABS: Red Cell Distribution Width 22.1 % (13.2-15.2)
--- NOTE | 2018-11-16 15:41 | Progress Note ---
Assessment and Plan Stable cardiac status. - Patient Problems (1) Hypotension Current Visit: Yes Status: Acute Qualifiers: Hypotension type: hemodialysis-associated hypotension Qualified Code(s): I95.3 - Hypotension of hemodialysis (2) Hypothermia Current Visit: Yes Status: Acute (3) Bradycardia Current Visit: Yes Status: Chronic (4) Permanent atrial fibrillation Current Visit: Yes Status: Chronic (5) Anemia Current Visit: Yes Status: Chronic Qualifiers: Anemia type: iron deficiency (6) End stage renal disease Current Visit: Yes Status: Chronic (7) Diabetes mellitus Current Visit: Yes Status: Chronic Subjective Date of service: 11/16/18 Principal diagnosis: Hypotension, hypothermia, bradycardia, perm AF, ESRD, DM, Anemia Interval history: The patient is sleeping. In AF with CVR. Objective Vital Signs Last Vital Signs Temp 97.1 F L 11/16/18 12:00 Pulse 90 11/16/18 15:01 Resp 8 L 11/16/18 15:01 BP 117/53 11/16/18 15:01 Pulse Ox 94 11/16/18 15:01 - Physical Examination General: No Apparent Distress HEENT: Positive: EOMI, Normocephaly, Mucus Membranes Moist Neck: Positive: neck supple, trachea midline Cardiac: Positive: irregularly irregular, S1/S2 Lungs: Positive: clear to auscultation Neuro: Positive: Grossly Intact Abdomen: Positive: Soft, Active Bowel Sounds. Negative: Tender Skin: Positive: Clear Musculoskeletal: Normal Range of Motion Extremities: Present: warm. Absent: edema - Labs and Meds CBC 11/16/18 11/16/18 Range/Units 03:50 13:53 WBC 2.3 L 2.6 L (4.5-11.0) K/mm3 RBC 5.71 H 4.00 (3.65-5.03) M/mm3 Hgb 14.4 D 10.2 L D (11.8-15.2) gm/dl Hct 47.1 H D 33.3 L D (35.5-45.6) % Plt Count 105 L 178 (140-440) K/mm3 Lymph # Project Developer Stanley # Project Developer Eos # Project Developer Baso # Project Developer Comprehensive Metabolic Panel 11/16/18 Range/Units 03:50 Sodium 137 (137-145) mmol/L Potassium 3.9 (3.6-5.0) mmol/L Chloride 99.3 (98-107) mmol/L Carbon Dioxide 26 (22-30) mmol/L BUN 25 H (9-20) mg/dL Creatinine 3.9 H (0.8-1.5) mg/dL Glucose 119 H (75-100) mg/dL Calcium 9.2 (8.4-10.2) mg/dL - Imaging and Cardiology Stress echo: report reviewed (MPI 04/30: Moderate sized fixed inferior wall perfusion defect of moderate severity, moderate size reversible apical defect) Echo: report reviewed (echo 03/08: Mild to moderate LVH, EF 40-45%,) - Telemetry EKG Rhythm: Atrial Fibrillation (with CVR)
[2018-11-16] MEDS: NEURONTIN PO SCH (22:10)
[2018-11-17] MEDS: APRESOLINE PO SCH ×3 (05:53→22:11)
--- NOTE | 2018-11-17 07:37 | Progress Note ---
Assessment and Plan Assessment and plan: 63-year-old legally blind -[place] male patient [facility] resident was admitted through emergency room with generalized weakness, workup is consistent with sepsis, septic shock admitted to ICU on levo fed, patient also has end-stage renal disease on hemodialysis , had a cardiac and hypotension and gastroesophageal reflux disease Stabilized in ICU, off Levophed, then transferred to medical floor, Speech and swallow evaluated the patient and recommended pured diet; Patient is stable to be transferred out of ICU to medical floor Assessment and plan: -- End stage renal disease/on hemodialysis Nephrology following, HD per schedule --Hyponatremia: Sodium levels improving continue current management -- Hypotension/septic shock: Resolved Possible volume depletion, possible sepsis off Levophed, empiric antibiotics --Sepsis Continue empiric antibiotics, cultures negative to date, Antibiotics for total 5 days and stop -- HTN (hypertension) continue current antihypertensives and when necessary medications -- GERD (gastroesophageal reflux disease) Cont PPI's -- Anemia of end-stage renal disease/iron deficiency Sec to ESRD and Iron def. closely monitor H&H Procrit during dialysis , transfuse as needed Iron supplements -- Severe Malnutrition/hypoalbuminemia Severe malnutrition/hypoalbuminemia Nutrition supplements, nutrition consult --DVT prophylaxis On Heparin and GI prophylaxis . --full CODE STATUS Monitor closely and adjust management as needed Patient is stable , transfer the patient out of ICU to medical floor Critical care time 32 minutes Disposition; possible discharge back to [facility] in 1-2 days if stable History Interval history: Patient seen and examined.medical records reviewed Patient is legally blind, responding appropriately Alert awake oriented 2 vital signs reviewed Speech and swallow evaluated the patient Recommend pure diet Vital signs reviewed Hospitalist Physical - Constitutional Vitals: Temp Pulse Resp BP Pulse Ox 98.4 F 89 9 L 134/74 97 11/17/18 03:04 11/17/18 06:00 11/17/18 06:00 11/17/18 06:00 11/17/18 07:22 General appearance: Present: no acute distress, well-nourished, other (responds appropriately , legally blind) - EENT Eyes: Present: PERRL, EOM intact - Neck Neck: Present: supple, normal ROM - Respiratory Respiratory effort: normal Respiratory: bilateral: diminished, negative: rales, rhonchi, wheezing - Cardiovascular Rhythm: regular Heart Sounds: Present: S1 & S2 - Extremities Extremities: no ischemia, No edema - Abdominal General gastrointestinal: soft, non-tender, non-distended - Integumentary Integumentary: Present: clear, warm - Psychiatric Psychiatric: appropriate mood/affect, other (blind) - Neurologic Neurologic: moves all extremities Results - Labs CBC & Chem 7: 11/17/18 06:41 11/17/18 06:41 Labs: Laboratory Last Values WBC 2.6 K/mm3 (4.5-11.0) L 11/16/18 13:53 RBC 4.00 M/mm3 (3.65-5.03) 11/16/18 13:53 Hgb 10.2 gm/dl (11.8-15.2) L D 11/16/18 13:53 Hct 33.3 % (35.5-45.6) L D 11/16/18 13:53 MCV 83 fl (84-94) L 11/16/18 13:53 MCH 26 pg (28-32) L 11/16/18 13:53 MCHC 31 % (32-34) L 11/16/18 13:53 RDW 22.1 % (13.2-15.2) H 11/16/18 13:53 Plt Count 178 K/mm3 (140-440) 11/16/18 13:53 Lymph % (Auto) [place] 11/16/18 03:50 [place] % (Auto) [place] 11/16/18 03:50 Eos % (Auto) [place] 11/16/18 03:50 Baso % (Auto) [place] 11/16/18 03:50 Lymph # [place] 11/16/18 03:50 [place] # [place] 11/16/18 03:50 Eos # [place] 11/16/18 03:50 Baso # [place] 11/16/18 03:50 Add Manual Diff Complete 11/16/18 03:50 Total Counted 100 11/16/18 03:50 Seg Neutrophils % [place] 11/16/18 03:50 Seg Neuts % (Manual) 91.0 % (40.0-70.0) H 11/16/18 03:50 Band Neutrophils % 0 % 11/16/18 03:50 Lymphocytes % (Manual) 7.0 % (13.4-35.0) L 11/16/18 03:50 Reactive Lymphs % (Man) 1.0 % 11/16/18 03:50 Monocytes % (Manual) 1.0 % (0.0-7.3) 11/16/18 03:50 Eosinophils % (Manual) 0 % (0.0-4.3) 11/16/18 03:50 Basophils % (Manual) 0 % (0.0-1.8) 11/16/18 03:50 Metamyelocytes % 0 % 11/16/18 03:50 Myelocytes % 0 % 11/16/18 03:50 Promyelocytes % 0 % 11/16/18 03:50 Blast Cells % 0 % 11/16/18 03:50 Nucleated RBC % Not Reportable 11/16/18 03:50 Seg Neutrophils # [place] 11/16/18 03:50 Seg Neutrophils # Man 2.1 K/mm3 (1.8-7.7) 11/16/18 03:50 Band Neutrophils # 0.0 K/mm3 11/16/18 03:50 Lymphocytes # (Manual) 0.2 K/mm3 (1.2-5.4) L 11/16/18 03:50 Abs React Lymphs (Man) 0.0 K/mm3 11/16/18 03:50 Monocytes # (Manual) 0.0 K/mm3 (0.0-0.8) 11/16/18 03:50 Eosinophils # (Manual) 0.0 K/mm3 (0.0-0.4) 11/16/18 03:50 Basophils # (Manual) 0.0 K/mm3 (0.0-0.1) 11/16/18 03:50 Metamyelocytes # 0.0 K/mm3 11/16/18 03:50 Myelocytes # 0.0 K/mm3 11/16/18 03:50 Promyelocytes # 0.0 K/mm3 11/16/18 03:50 Blast Cells # 0.0 K/mm3 11/16/18 03:50 WBC Morphology Not Reportable 11/16/18 03:50 Hypersegmented Neuts Not Reportable 11/16/18 03:50 Hyposegmented Neuts Not Reportable 11/16/18 03:50 Hypogranular Neuts Not Reportable 11/16/18 03:50 Smudge Cells Not Reportable 11/16/18 03:50 Toxic Granulation Not Reportable 11/16/18 03:50 Toxic Vacuolation Not Reportable 11/16/18 03:50 Dohle Bodies Not Reportable 11/16/18 03:50 Pelger-Huet Anomaly Not Reportable 11/16/18 03:50 Tramaine Rods Not Reportable 11/16/18 03:50 Platelet Estimate Consistent w auto 11/16/18 03:50 Clumped Platelets Not Reportable 11/16/18 03:50 Plt Clumps, EDTA Not Reportable 11/16/18 03:50 Large Platelets Not Reportable 11/16/18 03:50 Giant Platelets Not Reportable 11/16/18 03:50 Platelet Satelliting Not Reportable 11/16/18 03:50 Plt Morphology Comment Not Reportable 11/16/18 03:50 RBC Morphology Not Reportable 11/16/18 03:50 Dimorphic RBCs Not Reportable 11/16/18 03:50 Polychromasia Not Reportable 11/16/18 03:50 Hypochromasia Not Reportable 11/16/18 03:50 Poikilocytosis Not Reportable 11/16/18 03:50 Anisocytosis 1+ 11/16/18 03:50 Microcytosis Not Reportable 11/16/18 03:50 Macrocytosis Not Reportable 11/16/18 03:50 Spherocytes Not Reportable 11/16/18 03:50 Pappenheimer Bodies Not Reportable 11/16/18 03:50 Sickle Cells Not Reportable 11/16/18 03:50 Target Cells 1+ 11/16/18 03:50 Tear Drop Cells Not Reportable 11/16/18 03:50 Ovalocytes Not Reportable 11/16/18 03:50 Helmet Cells Not Reportable 11/16/18 03:50 Zhou-Whiting Bodies Not Reportable 11/16/18 03:50 [place] Rings Not Reportable 11/16/18 03:50 Hebert Cells Not Reportable 11/16/18 03:50 Bite Cells Not Reportable 11/16/18 03:50 Crenated Cell Not Reportable 11/16/18 03:50 Elliptocytes Not Reportable 11/16/18 03:50 Acanthocytes (Spur) Not Reportable 11/16/18 03:50 Rouleaux Not Reportable 11/16/18 03:50 Hemoglobin C Crystals Not Reportable 11/16/18 03:50 Schistocytes Not Reportable 11/16/18 03:50 Malaria parasites Not Reportable 11/16/18 03:50 Jose Juan Bodies Not Reportable 11/16/18 03:50 Hem Pathologist Commnt No 11/16/18 03:50 PT 16.0 Sec. (12.2-14.9) H 11/13/18 11:43 INR 1.20 (0.87-1.13) H 11/13/18 11:43 APTT 36.5 Sec. (24.2-36.6) 11/13/18 11:43 Sodium 137 mmol/L (137-145) 11/16/18 03:50 Potassium 3.9 mmol/L (3.6-5.0) 11/16/18 03:50 Chloride 99.3 mmol/L (98-107) 11/16/18 03:50 Carbon Dioxide 26 mmol/L (22-30) 11/16/18 03:50 Anion Gap 16 mmol/L 11/16/18 03:50 BUN 25 mg/dL (9-20) H 11/16/18 03:50 Creatinine 3.9 mg/dL (0.8-1.5) H 11/16/18 03:50 Estimated GFR 19 ml/min 11/16/18 03:50 BUN/Creatinine Ratio 6 % 11/16/18 03:50 Glucose 119 mg/dL (75-100) H 11/16/18 03:50 POC Glucose 174 (70-105) H 11/16/18 21:36 Hemoglobin A1c 4.9 % (4-6) 11/13/18 11:43 Calcium 9.2 mg/dL (8.4-10.2) 11/16/18 03:50 Iron 18 ug/dL (49-181) L 11/14/18 06:25 TIBC 55 mcg/dL (250-450) L 11/14/18 06:25 % Saturation 32.73 % 11/14/18 06:25 Transferrin 49 mg/dl (180-329) L 11/14/18 06:25 Total Bilirubin 0.20 mg/dL (0.1-1.2) 11/14/18 06:25 AST < 5 units/L (5-40) L 11/14/18 06:25 ALT < 5 units/L (7-56) L 11/14/18 06:25 Alkaline Phosphatase 73 units/L (35-129) 11/14/18 06:25 Total Protein 5.8 g/dL (6.3-8.2) L 11/14/18 06:25 Albumin 2.1 g/dL (3.9-5) L 11/14/18 06:25 Albumin/Globulin Ratio 0.6 % 11/14/18 06:25 Vitamin B12 603.4 pg/mL (211-911) 11/14/18 09:00 RBC Folic Acid >1000 ng/mL (>280) 11/14/18 06:25 TSH 4.280 mlU/mL (0.270-4.200) H 11/13/18 11:43 Free T4 0.80 ng/dL (0.76-1.46) 11/13/18 11:43 Blood Type O POSITIVE 11/14/18 12:17 Antibody Screen Negative 11/14/18 12:17 Crossmatch See Detail 11/14/18 12:17 Active Medications - Current Medications Current Medications: Generic Name Dose Route Start Last Admin Trade Name Freq PRN Reason Stop Dose Admin Acetaminophen 650 mg 11/13/18 21:14 Tylenol PO Q4H PRN Pain MILD(1-3)/Fever >100.5/HILL Acetaminophen 1,000 mg 11/13/18 21:38 Tylenol PO Q12H PRN Pain, Mild (1-3) Lipase/Protease/Amylase 1 each 11/15/18 08:07 Pancreaze 10,500 Unit FEEDTUBE PRN PRN For Clogged Feeding Tube Aspirin 81 mg 11/14/18 10:00 11/16/18 11:03 Halfprin Ec PO 81 mg DAILY SANCHEZ Administration Dextrose 25 ml 11/14/18 13:39 D50w (25gm) Syringe IV PRN PRN Hypoglycemia Docusate Sodium 100 mg 11/13/18 22:00 11/16/18 22:11 Colace PO 100 mg BID SANCHEZ Administration Epoetin Solitario 10,000 unit 11/14/18 14:40 11/15/18 17:49 Procrit IV 10,000 unit UMA PRN Administration hemoglobin less than 10 Famotidine 20 mg 11/14/18 10:00 11/16/18 11:03 Pepcid PO 20 mg DAILY SANCHEZ Administration Folic Acid 1 mg 11/14/18 10:00 11/16/18 11:03 Folvite PO 1 mg DAILY SANCHEZ Administration Gabapentin 100 mg 11/13/18 22:00 11/16/18 22:10 Neurontin PO 100 mg QHS SANCHEZ Administration Heparin Sodium (Porcine) 5,000 unit 11/13/18 22:00 11/16/18 22:11 Heparin SUB-Q 5,000 unit Q12HR SANCHEZ Administration Hydralazine HCl 25 mg 11/13/18 22:00 11/17/18 05:53 Apresoline PO 25 mg Q8HR SANCHEZ Administration Hydrocortisone Sodium Succinate 100 mg 11/14/18 11:00 11/17/18 05:54 Solu-Cortef IV 100 mg Q8HR SANCHEZ Administration Norepinephrine 4 mg in 250 mls @ 37.5 mls/hr 11/14/18 04:00 11/16/18 00:00 Levophed Drip 4 Mg/Ns 250 Ml IV 0 mcg/min TITR SANCHEZ 0 mls/hr Titration Protocol 10 MCG/MIN Cefepime HCl 1 gm in 100 mls @ 200 mls/hr 11/14/18 10:00 11/16/18 11:03 Maxipime/Ns 1 Gm/100 Ml IV 200 mls/hr Q24HR SANCHEZ Administration Protocol Ferric Sodium Gluconate 110 mls @ 100 mls/hr 11/14/18 11:00 11/16/18 11:04 Complex 125 mg/ Sodium IV 11/18/18 11:05 100 mls/hr Chloride QDAY SANCHEZ Administration Ondansetron HCl 4 mg 11/13/18 21:14 Zofran IV Q8H PRN Nausea And Vomiting Polyethylene Glycol 17 gm 11/14/18 10:00 11/16/18 11:03 Miralax 3350 PO 17 gm QDAY SANCHEZ Administration Simple Syrup 15 ml 11/15/18 08:07 Simple Syrup FEEDTUBE PRN PRN Hypoglycemia Simple Syrup 30 ml 11/15/18 08:07 Simple Syrup FEEDTUBE PRN PRN Hypoglycemia Sodium Bicarbonate 325 mg 11/15/18 08:07 Sodium Bicarbonate FEEDTUBE PRN PRN For Clogged Feeding Tube Sodium Chloride 10 ml 11/13/18 22:00 11/16/18 14:17 Sodium Chloride Flush Syringe 10 Ml IV 10 ml BID SANCHEZ Administration Sodium Chloride 10 ml 11/13/18 21:14 Sodium Chloride Flush Syringe 10 Ml IV PRN PRN LINE FLUSH Nutrition/Malnutrition Assess - Dietary Evaluation Nutrition/Malnutrition Findings: Nutrition Notes Start: 11/14/18 10:54 Freq: Status: Active Protocol: Document 11/14/18 10:54 LP (Rec: 11/14/18 10:59 LP [id number]) Nutrition Notes Need for Assessment generated from: MD Order Initial or Follow up Assessment Current Diagnosis CKD (stage V CKD),Diabetes, Sepsis,Hypertension,Heart Failure,Malnutrition,Stroke Other Pertinent Diagnosis on HD Current Diet Renal Labs/Tests Na 131 BUN 33 Cr 4.8 Pertinent Medications NS at 42ml/hr Height 5 ft 11 in Weight 108.3 kg [place] Body Weight (kg) 78.18 BMI 33.3 Subjective/Other Information Consult for malnutrition and TF. Pt lethargic and MD to place dobhoff due to not eating this AM. Unable to obtain nutrition hx from pt. Burn Absent Trauma Absent #1 Nutrition Diagnosis Inadequate oral intake Etiology lethargy As Evidenced by Signs and Symptoms MD to place dobhoff due to not eating Is patient on ventilator? No Is Patient Ambulatory and/or Out of Bed No REE-([place]-confined to bed) 2278.992 Kcal/Kg value to use for calculation 18 Approximate Energy Requirements Using 1949 kcal/Kg Calculation Used for Recommendations Kcal/kg Additional Notes Protein needs are 108-130g (1- 1.2g/kg) Fluid needs are 1ml/kcal or per MD Nutrition Intervention Change Diet Order: TF Nutrition Support: [place] at 45ml/hr Flush with 150ml q4h or per MD Kcal 1,944 Protein (gm) 87 Fluid (mL) 785 Goal #1 Meet at least 80% of kcal and protein needs via TF Anticipated Discharge Needs: Unable to determine at this time Follow-Up By: 11/17/18 Additional Comments Follow for TF start/tolerance
[2018-11-17 08:05] LABS: Hematocrit 31.2 % (35.5-45.6); Hemoglobin 9.6 gm/dl (11.8-15.2); Mean Corpuscular HGB Conc 31 % (32-34); Mean Corpuscular Volume 83 fl (84-94); Platelet Count 174 K/mm3 (140-440); Red Blood Count 3.78 M/mm3 (3.65-5.03); Red Cell Distribution Width 21.9 % (13.2-15.2)
[2018-11-17 08:06] LABS: Basophils % (Auto) 0.5 % (0.0-1.8); Eosinophils % (Auto) 0.1 % (0.0-4.3); Lymphocytes # (Auto) 0.3 K/mm3 (1.2-5.4); Lymphocytes % (Auto) 7.6 % (13.4-35.0); Monocytes # (Auto) 0.2 K/mm3 (0.0-0.8); Monocytes % (Auto) 3.7 % (0.0-7.3)
[2018-11-17 08:34] LABS: Calcium 9.3 mg/dL (8.4-10.2)
--- NOTE | 2018-11-17 09:31 | Progress Note ---
Assessment and Plan Hypotension, Sepsis Hypothermia Bradycardia,c/u ESRD Recommendations: Complete ABX's Wean pressors Cards f/u of bradycardia.Monitoring Speech evaluation if swallowing issues with water sips HD per nephrology Dc marcial May be transferred after the above , if stable, no support issues Discussed with everett in detail, all questions answered CCT 31 min Subjective Date of service: 11/17/18 Principal diagnosis: Hypotension, hypothermia, bradycardia, perm AF, ESRD, DM, Anemia Interval history: Feels OK. Mostly sleepy but no complains Objective Vital Signs - 12hr 11/16/18 11/16/18 11/16/18 21:31 22:00 22:10 Temperature Pulse Rate 87 92 H 92 H Respiratory 8 L 10 L Rate Blood Pressure 105/53 117/53 117/53 O2 Sat by Pulse 99 97 Oximetry 11/16/18 11/16/18 11/16/18 22:12 22:31 23:01 Temperature Pulse Rate 85 86 99 H Respiratory 9 L 9 L 10 L Rate Blood Pressure 105/53 105/53 113/59 O2 Sat by Pulse 99 99 98 Oximetry 11/16/18 11/16/18 11/17/18 23:22 23:31 00:00 Temperature 98.3 F Pulse Rate 97 H 86 Respiratory 10 L 9 L Rate Blood Pressure 113/59 128/65 O2 Sat by Pulse 99 91 Oximetry 11/17/18 11/17/18 11/17/18 00:31 01:00 01:31 Temperature Pulse Rate 84 79 81 Respiratory 9 L 10 L 9 L Rate Blood Pressure 128/65 112/59 128/65 O2 Sat by Pulse 97 92 99 Oximetry 11/17/18 11/17/18 11/17/18 02:00 02:28 02:31 Temperature Pulse Rate 75 76 Respiratory 8 L 11 L 9 L Rate Blood Pressure 119/61 112/59 O2 Sat by Pulse 93 100 99 Oximetry 11/17/18 11/17/18 11/17/18 03:00 03:04 03:31 Temperature 98.4 F Pulse Rate 80 81 Respiratory 9 L 8 L Rate Blood Pressure 130/64 130/64 O2 Sat by Pulse 93 99 Oximetry 11/17/18 11/17/18 11/17/18 04:00 04:31 05:00 Temperature Pulse Rate 69 79 77 Respiratory 9 L 8 L 8 L Rate Blood Pressure 127/58 130/64 127/63 O2 Sat by Pulse 93 98 93 Oximetry 11/17/18 11/17/18 11/17/18 05:10 05:31 05:53 Temperature Pulse Rate 79 96 H Respiratory 13 9 L Rate Blood Pressure 127/58 127/63 O2 Sat by Pulse 100 99 Oximetry 11/17/18 11/17/18 11/17/18 06:00 06:31 07:00 Temperature Pulse Rate 89 82 90 Respiratory 9 L 9 L 9 L Rate Blood Pressure 134/74 134/74 126/64 O2 Sat by Pulse 96 98 93 Oximetry 11/17/18 11/17/18 11/17/18 07:22 07:31 08:00 Temperature 97.9 F Pulse Rate 81 90 Respiratory 8 L 9 L Rate Blood Pressure 134/74 141/78 O2 Sat by Pulse 97 98 93 Oximetry Constitutional: no acute distress, alert Eyes: non-icteric ENT: oropharynx moist Neck: supple Effort: no acute distress Ascultation: Bilateral: clear, diminished breath sounds Cardiovascular: regular rate and rhythm Gastrointestinal: normoactive bowel sounds, non-distended Integumentary: normal Extremities: no cyanosis, no cyanosis, no cyanosis Neurologic: non-focal exam, pupils equal and round, CN II-XII normal, other (sleepy) CBC and BMP: 11/18/18 05:11 11/18/18 Unknown ABG, PT/INR, D-dimer: PT/INR, D-dimer PT 16.0 Sec. (12.2-14.9) H 11/13/18 11:43 INR 1.20 (0.87-1.13) H 11/13/18 11:43 Abnormal lab findings: Abnormal Labs 11/13/18 11/13/18 11/13/18 11:43 11:43 11:43 WBC RBC Hgb 9.2 L Hct 29.6 L MCV 81 L MCH 25 L MCHC 31 L RDW 21.4 H Plt Count Lymph % (Auto) 6.0 L [place] % (Auto) 10.4 H Lymph # 0.4 L Seg Neutrophils % 82.5 H Seg Neuts % (Manual) Lymphocytes % (Manual) Lymphocytes # (Manual) PT INR Sodium 127 L Chloride 89.0 L Carbon Dioxide BUN 31 H Creatinine 4.3 H Glucose POC Glucose Iron TIBC Transferrin AST < 5 L ALT < 5 L Total Protein 5.8 L Albumin 2.0 L TSH 4.280 H Crossmatch 11/13/18 11/14/18 11/14/18 11:43 06:00 06:25 WBC 4.2 L RBC 3.64 L Hgb 9.2 L Hct 29.6 L MCV 81 L MCH 25 L MCHC 31 L RDW 21.6 H Plt Count Lymph % (Auto) 10.6 L [place] % (Auto) 12.2 H Lymph # 0.5 L Seg Neutrophils % 73.7 H Seg Neuts % (Manual) Lymphocytes % (Manual) Lymphocytes # (Manual) PT 16.0 H INR 1.20 H Sodium 131 L Chloride 92.6 L Carbon Dioxide BUN 33 H Creatinine 4.8 H Glucose POC Glucose Iron TIBC Transferrin AST < 5 L ALT < 5 L Total Protein 5.8 L Albumin 2.1 L TSH Crossmatch 11/14/18 11/14/18 11/14/18 06:25 12:17 12:27 WBC RBC Hgb Hct MCV MCH MCHC RDW Plt Count Lymph % (Auto) [place] % (Auto) Lymph # Seg Neutrophils % Seg Neuts % (Manual) Lymphocytes % (Manual) Lymphocytes # (Manual) PT INR Sodium Chloride Carbon Dioxide BUN Creatinine Glucose POC Glucose 64 L Iron 18 L TIBC 55 L Transferrin 49 L AST ALT Total Protein Albumin TSH Crossmatch See Detail 11/15/18 11/15/18 11/15/18 03:51 03:51 17:51 WBC 2.2 L RBC Hgb 9.3 L Hct 30.2 L MCV 82 L MCH 25 L MCHC 31 L RDW 21.7 H Plt Count Lymph % (Auto) [place] % (Auto) Lymph # Seg Neutrophils % Seg Neuts % (Manual) 98.0 H Lymphocytes % (Manual) 2.0 L Lymphocytes # (Manual) 0.0 L PT INR Sodium 131 L Chloride 95.3 L Carbon Dioxide 21 L BUN 33 H Creatinine 5.3 H Glucose POC Glucose 138 H Iron TIBC Transferrin AST ALT Total Protein Albumin TSH Crossmatch 11/15/18 11/16/18 11/16/18 23:26 03:50 03:50 WBC 2.3 L RBC 5.71 H Hgb Hct 47.1 H D MCV 83 L MCH 25 L MCHC 31 L RDW 22.0 H Plt Count 105 L Lymph % (Auto) [place] % (Auto) Lymph # Seg Neutrophils % Seg Neuts % (Manual) 91.0 H Lymphocytes % (Manual) 7.0 L Lymphocytes # (Manual) 0.2 L PT INR Sodium Chloride Carbon Dioxide BUN 25 H Creatinine 3.9 H Glucose 119 H POC Glucose 136 H Iron TIBC Transferrin AST ALT Total Protein Albumin TSH Crossmatch 11/16/18 11/16/18 11/16/18 12:24 13:53 17:28 WBC 2.6 L RBC Hgb 10.2 L D Hct 33.3 L D MCV 83 L MCH 26 L MCHC 31 L RDW 22.1 H Plt Count Lymph % (Auto) [place] % (Auto) Lymph # Seg Neutrophils % Seg Neuts % (Manual) Lymphocytes % (Manual) Lymphocytes # (Manual) PT INR Sodium Chloride Carbon Dioxide BUN Creatinine Glucose POC Glucose 132 H 162 H Iron TIBC Transferrin AST ALT Total Protein Albumin TSH Crossmatch 11/16/18 11/17/18 11/17/18 21:36 06:41 06:41 WBC 4.3 L RBC Hgb 9.6 L Hct 31.2 L MCV 83 L MCH 26 L MCHC 31 L RDW 21.9 H Plt Count Lymph % (Auto) 7.6 L [place] % (Auto) Lymph # 0.3 L Seg Neutrophils % 88.1 H Seg Neuts % (Manual) Lymphocytes % (Manual) Lymphocytes # (Manual) PT INR Sodium 136 L Chloride Carbon Dioxide BUN 34 H Creatinine 4.5 H Glucose 186 H POC Glucose 174 H Iron TIBC Transferrin AST ALT Total Protein Albumin TSH Crossmatch 11/17/18 08:01 WBC RBC Hgb Hct MCV MCH MCHC RDW Plt Count Lymph % (Auto) [place] % (Auto) Lymph # Seg Neutrophils % Seg Neuts % (Manual) Lymphocytes % (Manual) Lymphocytes # (Manual) PT INR Sodium Chloride Carbon Dioxide BUN Creatinine Glucose POC Glucose 221 H Iron TIBC Transferrin AST ALT Total Protein Albumin TSH Crossmatch Chest x-ray: report reviewed, image reviewed
[2018-11-17] MEDS: HEPARIN SUB-Q SCH ×2 (09:57→22:09)
[2018-11-17] MEDS: MAXIPIME/NS 1 GM/100 ML 1 GM/100 ML BAG IV SCH (09:58)
--- NOTE | 2018-11-17 09:58 | Progress Note ---
Subjective Principal diagnosis: Hypotension, hypothermia, bradycardia, perm AF, ESRD, DM, Anemia Interval history: Patient was seen today for follow-up on multiple renal related issues Events of this hospitalization noted Currently on dialysis Saturday and Saturday Patient denies having any chest pain pressure or shortness of breath Vitals labs intake output medications were reviewed Social history: Reviewed Allergies: Reviewed Family history: Reviewed Physical examination HEENT: Oral mucosa moist no pallor or icterus Neck: Supple no JVD Chest: Clear to auscultation anteriorly CVS: Regular rate and rhythm S1 and S2 heard Abdomen: Soft nontender no suprapubic masses no organomegaly appreciable Extremity: Dry skin less than 1+ peripheral edema Musculoskeletal: No joint effusion noted in knees and ankle Neurological: Alert awake Dermatology: No petechial rashes Psychiatry: No evidence of any agitation and aggression noted Assessment and plan End-stage renal disease: Patient is currently on maintenance hemodialysis on Saturday schedule Blood work appears to be stable from renal standpoint hemoglobin 9.6 potassium 4.1 BUN 34 creatinine 4.5 calcium is currently 9.3 We'll continue to dialyze and ultrafiltrate only as tolerated Patient is high risk due to multiple health issues Hypertension appears to be well-controlled 141/78 Currently being treated for sepsis bradycardia chronic atrial fibrillation Blood cultures have been negative for last 72 hours Also does have history of prior coronary artery disease and CVA with schizophrenia We'll continue to follow and make recommendation from renal standpoint Objective - Vital Signs Vital signs: Vital Signs - 12hr 11/16/18 11/16/18 11/16/18 22:00 22:10 22:12 Temperature Pulse Rate 92 H 92 H 85 Respiratory 10 L 9 L Rate Blood Pressure 117/53 117/53 105/53 O2 Sat by Pulse 97 99 Oximetry 11/16/18 11/16/18 11/16/18 22:31 23:01 23:22 Temperature 98.3 F Pulse Rate 86 99 H Respiratory 9 L 10 L Rate Blood Pressure 105/53 113/59 O2 Sat by Pulse 99 98 Oximetry 11/16/18 11/17/18 11/17/18 23:31 00:00 00:31 Temperature Pulse Rate 97 H 86 84 Respiratory 10 L 9 L 9 L Rate Blood Pressure 113/59 128/65 128/65 O2 Sat by Pulse 99 91 97 Oximetry 11/17/18 11/17/1819 01:00 01:31 02:00 Temperature Pulse Rate 79 81 75 Respiratory 10 L 9 L 8 L Rate Blood Pressure 112/59 128/65 119/61 O2 Sat by Pulse 92 99 93 Oximetry 11/17/18 11/17/18 11/17/18 02:28 02:31 03:00 Temperature Pulse Rate 76 80 Respiratory 11 L 9 L 9 L Rate Blood Pressure 112/59 130/64 O2 Sat by Pulse 100 99 93 Oximetry 11/17/18 11/17/18 11/17/18 03:04 03:31 04:00 Temperature 98.4 F Pulse Rate 81 69 Respiratory 8 L 9 L Rate Blood Pressure 130/64 127/58 O2 Sat by Pulse 99 93 Oximetry 11/17/18 11/17/18 11/17/18 04:31 05:00 05:10 Temperature Pulse Rate 79 77 Respiratory 8 L 8 L 13 Rate Blood Pressure 130/64 127/63 O2 Sat by Pulse 98 93 100 Oximetry 11/17/18 11/17/18 11/17/18 05:31 05:53 06:00 Temperature Pulse Rate 79 96 H 89 Respiratory 9 L 9 L Rate Blood Pressure 127/58 127/63 134/74 O2 Sat by Pulse 99 96 Oximetry 11/17/18 11/17/18 11/17/18 06:31 07:00 07:22 Temperature Pulse Rate 82 90 Respiratory 9 L 9 L Rate Blood Pressure 134/74 126/64 O2 Sat by Pulse 98 93 97 Oximetry 11/17/18 11/17/18 07:31 08:00 Temperature 97.9 F Pulse Rate 81 90 Respiratory 8 L 9 L Rate Blood Pressure 134/74 141/78 O2 Sat by Pulse 98 93 Oximetry - Lab 11/17/18 06:41 11/17/18 06:41 Most recent lab results Calcium 9.3 mg/dL (8.4-10.2) 11/17/18 06:41 Medications & Allergies - Medications Allergies/Adverse Reactions: Allergies haloperidol [From Haldol] Adverse Reaction (Verified 03/13/18 12:10) Unknown haloperidol lactate [From Haldol] Adverse Reaction (Verified 03/13/18 12:10) Unknown Home Medications: Home Medications Medication Instructions Recorded Confirmed Last Taken Type Gabapentin [Neurontin] 100 mg PO QHS #60 capsule 10/02/17 11/14/1818 19:00 Rx Acetaminophen [Acetaminophen TAB] 1,000 mg PO Q12H PRN 03/13/18 11/14/18 Unknown History Insulin Aspart [NovoLOG Flexpen] 0 units SUB-Q QWEEK 03/13/18 11/14/18 Unknown History risperiDONE [RisperDAL] 1 mg PO QAM 03/13/18 11/14/18 Unknown History Aspirin EC [Aspirin Enteric Coated 81 mg PO DAILY 03/18/18 11/14/18 Unknown History TAB] Docusate Sodium [Colace CAP] 100 mg PO BID 03/18/18 11/14/18 Unknown History Folic Acid [Folvite] 1 mg PO DAILY 03/18/18 11/14/18 Unknown History ISOSORBIDE MONOnitrate [Imdur ER] 30 mg PO DAILY 03/18/18 11/14/18 Unknown History Metoprolol [Lopressor TAB] 50 mg PO BID 03/18/18 11/14/18 Unknown History Minoxidil [Loniten] 2.5 mg PO BID 03/18/18 11/14/18 Unknown History Sevelamer Carbonate [Renvela] 800 mg PO TIDWM 03/18/18 11/14/18 Unknown History Famotidine [Pepcid] 20 mg PO DAILY #30 tablet 06/09/18 11/14/18 Unknown Rx Sertraline [Zoloft] 100 mg PO QDAY 08/26/18 11/14/18 Unknown History risperiDONE [RisperDAL] 0.5 mg PO HS 08/26/18 11/14/18 Unknown History hydrALAZINE [Apresoline TAB] 25 mg PO Q8HR tablet 09/02/18 11/14/18 Unknown Rx Polyethylene Glycol 3350 [Miralax 17 gm PO QDAY #30 packet 11/05/18 11/14/18 Unknown Rx 3350] levoFLOXacin [Levaquin TAB] 500 mg PO Q48HR #3 tablet 11/05/18 11/14/18 Unknown Rx Active Medications: Generic Name Dose Route Start Last Admin Trade Name Freq PRN Reason Stop Dose Admin Acetaminophen 650 mg 11/13/18 21:14 Tylenol PO Q4H PRN Pain MILD(1-3)/Fever >100.5/HILL Lipase/Protease/Amylase 1 each 11/15/18 08:[address] 10,500 Unit FEEDTUBE PRN PRN For Clogged Feeding Tube Aspirin 81 mg 11/14/18 10:00 11/16/18 11:03 Halfprin Ec PO 81 mg DAILY SANCHEZ Administration Dextrose 25 ml 11/14/18 13:39 D50w (25gm) Syringe IV PRN PRN Hypoglycemia Docusate Sodium 100 mg 11/13/18 22:00 11/16/18 22:11 Colace PO 100 mg BID SANCHEZ Administration Epoetin Solitario 10,000 unit 11/14/18 14:40 11/15/18 17:49 Procrit IV 10,000 unit UMA PRN Administration hemoglobin less than 10 Famotidine 20 mg 11/14/18 10:00 11/16/18 11:03 Pepcid PO 20 mg DAILY SANCHEZ Administration Folic Acid 1 mg 11/14/18 10:00 11/16/18 11:03 Folvite PO 1 mg DAILY SANCHEZ Administration Gabapentin 100 mg 11/13/18 22:00 11/16/18 22:10 Neurontin PO 100 mg QHS SNACHEZ Administration Heparin Sodium (Porcine) 5,000 unit 11/13/18 22:00 11/16/18 22:11 Heparin SUB-Q 5,000 unit Q12HR SANCHEZ Administration Hydralazine HCl 25 mg 11/13/18 22:00 11/17/18 05:53 Apresoline PO 25 mg Q8HR SANCHEZ Administration Hydrocortisone Sodium Succinate 100 mg 11/14/18 11:00 11/17/18 05:54 Solu-Cortef IV 11/17/18 14:00 100 mg Q8HR SANCHEZ Administration Hydrocortisone Sodium Succinate 50 mg 11/17/18 22:00 Solu-Cortef IV 11/18/18 14:01 Q8HR SANCHEZ Hydrocortisone Sodium Succinate 50 mg 11/19/18 10:00 Solu-Cortef IV 11/19/18 22:01 Q12HR SANCHEZ Hydrocortisone Sodium Succinate 50 mg 11/20/18 10:00 Solu-Cortef IV 11/20/18 10:01 DAILY SANCHEZ Norepinephrine 4 mg in 250 mls @ 37.5 mls/hr 11/14/18 04:00 11/16/18 00:00 Levophed Drip 4 Mg/Ns 250 Ml IV 0 mcg/min TITR SANCHEZ 0 mls/hr Titration Protocol 10 MCG/MIN Cefepime HCl 1 gm in 100 mls @ 200 mls/hr 11/14/18 10:00 11/16/18 11:03 Maxipime/Ns 1 Gm/100 Ml IV 11/18/18 10:29 200 mls/hr Q24HR SANCHEZ Administration Protocol Ferric Sodium Gluconate 110 mls @ 100 mls/hr 11/14/18 11:00 11/16/18 11:04 Complex 125 mg/ Sodium IV 11/18/18 11:05 100 mls/hr Chloride QDAY SANCHEZ Administration Ondansetron HCl 4 mg 11/13/18 21:14 Zofran IV Q8H PRN Nausea And Vomiting Polyethylene Glycol 17 gm 11/14/18 10:00 11/16/18 11:03 Miralax 3350 PO 17 gm QDAY SANCHEZ Administration Simple Syrup 15 ml 11/15/18 08:07 Simple Syrup FEEDTUBE PRN PRN Hypoglycemia Simple Syrup 30 ml 11/15/18 08:07 Simple Syrup FEEDTUBE PRN PRN Hypoglycemia Sodium Bicarbonate 325 mg 11/15/18 08:07 Sodium Bicarbonate FEEDTUBE PRN PRN For Clogged Feeding Tube Sodium Chloride 10 ml 11/13/18 22:00 11/16/18 14:17 Sodium Chloride Flush Syringe 10 Ml IV 10 ml BID SANCHEZ Administration Sodium Chloride 10 ml 11/13/18 21:14 Sodium Chloride Flush Syringe 10 Ml IV PRN PRN LINE FLUSH
[2018-11-17] MEDS: FERRLECIT 125 MG in NACL 0.9% 100 ML IV SCH (10:32)
[2018-11-17] MEDS: SODIUM CHLORIDE FLUSH SYRINGE 10 ML IV SCH ×2 (10:33→22:12)
[2018-11-17] MEDS: COLACE PO SCH ×2 (10:38→22:12)
--- NOTE | 2018-11-17 10:38 | Progress Note ---
Assessment and Plan Pt in AFib with CVR. Vasopressors weaned off. 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 However, he may be a poor candidate for long-term OAC in setting of mental status and multiple co- morbidities. Can consider heparin gtt in the interim if no contraindications. The patient has been seen in conjunction with Dr. Bullock who agrees with the assessment and plan of care. - Patient Problems (1) Atrial fibrillation with slow ventricular response Current Visit: Yes Status: Acute (2) History of loop recorder Current Visit: Yes Status: Acute (3) Sepsis Current Visit: Yes Status: Suspected Qualifiers: Sepsis type: sepsis due to unspecified organism Qualified Code(s): A41.9 - Sepsis, unspecified organism (4) Hypotension Current Visit: Yes Status: Resolved Qualifiers: Hypotension type: hemodialysis-associated hypotension Qualified Code(s): I95.3 - Hypotension of hemodialysis (5) Hypothermia Current Visit: Yes Status: Acute (6) Diabetes mellitus Current Visit: Yes Status: Chronic (7) End stage renal disease Current Visit: Yes Status: Chronic (8) History of CVA (cerebrovascular accident) Current Visit: Yes Status: Chronic (9) Legally blind Current Visit: Yes Status: Chronic (10) Anemia Current Visit: Yes Status: Chronic Qualifiers: Anemia type: iron deficiency Subjective Date of service: 11/17/18 Principal diagnosis: Hypotension, hypothermia, bradycardia, perm AF, ESRD, DM, Anemia Interval history: pt resting in bed, nonverbal, withdrawn. no family at bedside. in AFib with HR 70s on telemetry. Objective Last Vital Signs Temp 97.9 F 11/17/18 08:00 Pulse 90 11/17/18 08:00 Resp 12 11/17/18 08:00 BP 141/78 11/17/18 08:00 Pulse Ox 100 11/17/18 08:00 - Physical Examination General: Other (withdrawn) HEENT: Positive: EOMI, Normocephaly, Mucus Membranes Moist Neck: Positive: neck supple, trachea midline Cardiac: Positive: irregularly irregular, S1/S2 Lungs: Positive: Decreased Breath Sounds Neuro: Positive: Other (withdrawn) Abdomen: Positive: Soft, Active Bowel Sounds. Negative: Tender Skin: Positive: Clear Musculoskeletal: Normal Range of Motion Extremities: Present: warm. Absent: edema - Labs and Meds CBC 11/16/18 11/17/18 Range/Units 13:53 06:41 WBC 2.6 L 4.3 L (4.5-11.0) K/mm3 RBC 4.00 3.78 (3.65-5.03) M/mm3 Hgb 10.2 L D 9.6 L (11.8-15.2) gm/dl Hct 33.3 L D 31.2 L (35.5-45.6) % Plt Count 178 174 (140-440) K/mm3 Lymph # 0.3 L (1.2-5.4) K/mm3 [place] # 0.2 (0.0-0.8) K/mm3 Eos # 0.0 (0.0-0.4) K/mm3 Baso # 0.0 (0.0-0.1) K/mm3 Comprehensive Metabolic Panel 11/17/18 Range/Units 06:41 Sodium 136 L (137-145) mmol/L Potassium 4.1 (3.6-5.0) mmol/L Chloride 98.6 (98-107) mmol/L Carbon Dioxide 24 (22-30) mmol/L BUN 34 H (9-20) mg/dL Creatinine 4.5 H (0.8-1.5) mg/dL Glucose 186 H (75-100) mg/dL Calcium 9.3 (8.4-10.2) mg/dL - Imaging and Cardiology Stress echo: report reviewed (MPI 04/30: Moderate sized fixed inferior wall perfusion defect of moderate severity, moderate size reversible apical defect) Echo: report reviewed (echo 03/08: Mild to moderate LVH, EF 40-45%,) - Telemetry EKG Rhythm: Atrial Fibrillation
[2018-11-17] MEDS: HALFPRIN EC PO SCH (10:39)
[2018-11-17] MEDS: FOLVITE PO SCH (10:39)
[2018-11-17] MEDS: MIRALAX 3350 PO SCH (10:39)
[2018-11-17] MEDS: PEPCID PO SCH (10:40)
[2018-11-17] MEDS: HumaLOG SUB-Q SCH ×3 (12:00→22:05)
[2018-11-17] MEDS: NEURONTIN PO SCH (22:07)
[2018-11-18 05:58] LABS: Hematocrit 35.4 % (35.5-45.6); Hemoglobin 10.9 gm/dl (11.8-15.2); Mean Corpuscular HGB Conc 31 % (32-34); Mean Corpuscular Volume 83 fl (84-94); Platelet Count 155 K/mm3 (140-440); Red Blood Count 4.26 M/mm3 (3.65-5.03)
[2018-11-18 06:03] LABS: Red Cell Distribution Width 22.3 % (13.2-15.2)
[2018-11-18] MEDS: APRESOLINE PO SCH ×3 (06:14→21:36)
[2018-11-18 06:21] LABS: Albumin 2.6 g/dL (3.9-5); BUN/Creatinine Ratio 8; Blood Urea Nitrogen 42 mg/dL (9-20); Calcium 9.4 mg/dL (8.4-10.2); Hemolysis Index 82
[2018-11-18 06:28] LABS: Alanine Aminotransferase < 5 units/L (7-56)
[2018-11-18] MEDS: HumaLOG SUB-Q SCH ×3 (08:30→18:37)
[2018-11-18] MEDS: SODIUM CHLORIDE FLUSH SYRINGE 10 ML IV SCH ×2 (09:11→21:35)
[2018-11-18] MEDS: MAXIPIME/NS 1 GM/100 ML 1 GM/100 ML BAG IV SCH (09:12)
[2018-11-18] MEDS: FOLVITE PO SCH (09:13)
[2018-11-18] MEDS: COLACE PO SCH ×2 (09:13→21:36)
[2018-11-18] MEDS: HALFPRIN EC PO SCH (09:14)
[2018-11-18] MEDS: MIRALAX 3350 PO SCH (09:14)
[2018-11-18] MEDS: HEPARIN SUB-Q SCH ×2 (09:14→21:37)
[2018-11-18] MEDS: PEPCID PO SCH (09:14)
--- NOTE | 2018-11-18 09:21 | Progress Note ---
Subjective Principal diagnosis: Hypotension, hypothermia, bradycardia, perm AF, ESRD, DM, Anemia Interval history: Patient was seen today for follow-up on multiple renal related issues Pressure is mildly elevated Patient is resting comfortably in bed Currently on dialysis Saturday and Saturday Vitals labs intake output medications were reviewed Social history: Reviewed Allergies: Reviewed Family history: Reviewed Physical examination HEENT: Oral mucosa moist no pallor or icterus Neck: Supple no JVD Chest: Clear to auscultation anteriorly CVS: Regular rate and rhythm S1 and S2 heard Abdomen: Soft nontender no suprapubic masses no organomegaly appreciable Extremity: Dry skin less than 1+ peripheral edema Musculoskeletal: No joint effusion noted in knees and ankle Neurological: Arousable Dermatology: No petechial rashes Psychiatry: No evidence of any agitation and aggression noted Assessment and plan End-stage renal disease: Continue with hemodialysis treatment 3 times per week judicious ultrafiltration avoid hypotension during dialysis parameters have been set up Anemia in end-stage renal disease Will continue to monitor and follow, current hemoglobin is around 10.9 normal platelet count Current dialysis access is a central venous catheter in his right upper chest Mild hyponatremia sodium 134 potassium 5.2 calcium is 9.4 Blood culture is negative in the last 3 days Iron saturation is normal 32%, normal B12 and folic acid Anemia is also nutritional patient's albumin is 2.1 currently improving 2.6 Maintain high-protein diet Secondary hyperparathyroidism periodically check phosphorus as well as PTH level Hypertension: Requires better control. May need to Increase hydralazine to 50 mg 3 times a day Due to end-stage renal disease, noncompliance and multiple other health issues p atient's prognosis is very poor Also does have history of prior coronary artery disease and CVA with schizophrenia We'll continue to follow and make recommendation from renal standpoint Objective - Vital Signs Vital signs: Vital Signs - 12hr 11/17/18 11/17/18 11/17/18 21:31 22:00 22:01 Temperature Pulse Rate 96 H 86 91 H Pulse Rate [ 86 Left Radial] Respiratory 8 L 12 17 Rate Blood Pressure O2 Sat by Pulse 100 99 97 Oximetry 11/17/18 11/17/18 11/17/18 22:11 22:31 23:00 Temperature Pulse Rate 92 H 87 88 Pulse Rate [ Left Radial] Respiratory 11 L 8 L Rate Blood Pressure 160/93 160/93 166/90 O2 Sat by Pulse 100 98 Oximetry 11/17/18 11/18/18 11/18/18 23:31 00:00 00:18 Temperature 97.6 F Pulse Rate 91 H 92 H Pulse Rate [ Left Radial] Respiratory 10 L 15 Rate Blood Pressure 166/90 166/90 O2 Sat by Pulse 100 100 98 Oximetry 11/18/18 11/18/18 11/18/18 00:31 01:00 01:30 Temperature Pulse Rate 78 87 77 Pulse Rate [ Left Radial] Respiratory 9 L 8 L 9 L Rate Blood Pressure 166/93 147/79 147/79 O2 Sat by Pulse 100 98 100 Oximetry 11/18/18 11/18/18 11/18/18 02:00 02:31 03:00 Temperature Pulse Rate 84 84 77 Pulse Rate [ Left Radial] Respiratory 14 10 L 11 L Rate Blood Pressure 160/86 160/86 158/76 O2 Sat by Pulse 99 100 98 Oximetry 11/18/18 11/18/18 11/18/18 03:31 04:00 04:01 Temperature 98.6 F Pulse Rate 83 78 Pulse Rate [ 82 Left Radial] Respiratory 10 L 7 L 7 L Rate Blood Pressure 158/76 139/67 O2 Sat by Pulse 99 100 96 Oximetry 11/18/18 11/18/18 11/18/18 04:31 05:00 05:31 Temperature Pulse Rate 84 88 Pulse Rate [ Left Radial] Respiratory 8 L 11 L Rate Blood Pressure 139/67 152/84 139/67 O2 Sat by Pulse 100 100 100 Oximetry 11/18/18 11/18/18 11/18/18 06:00 06:14 07:00 Temperature Pulse Rate 89 79 Pulse Rate [ Left Radial] Respiratory 7 L Rate Blood Pressure 152/77 152/77 156/73 O2 Sat by Pulse 99 98 Oximetry 11/18/18 11/18/18 11/18/18 08:00 08:01 09:01 Temperature 96.6 F L Pulse Rate 82 73 Pulse Rate [ Left Radial] Respiratory 10 L 10 L 8 L Rate Blood Pressure 173/90 175/88 O2 Sat by Pulse 100 99 99 Oximetry 11/18/18 09:14 Temperature Pulse Rate Pulse Rate [ Left Radial] Respiratory Rate Blood Pressure O2 Sat by Pulse 99 Oximetry - Lab 11/18/18 05:11 11/18/18 Unknown Most recent lab results Calcium 9.4 mg/dL (8.4-10.2) 11/18/18 Unknown Medications & Allergies - Medications Allergies/Adverse Reactions: Allergies haloperidol [From Haldol] Adverse Reaction (Verified 03/13/18 12:10) Unknown haloperidol lactate [From Haldol] Adverse Reaction (Verified 03/13/18 12:10) Unknown Home Medications: Home Medications Medication Instructions Recorded Confirmed Last Taken Type Gabapentin [Neurontin] 100 mg PO QHS #60 capsule 10/02/17 11/14/18 01/19/18 19:00 Rx Acetaminophen [Acetaminophen TAB] 1,000 mg PO Q12H PRN 03/13/18 11/14/18 Unknown History Insulin Aspart [NovoLOG Flexpen] 0 units SUB-Q QWEEK 03/13/18 11/14/18 Unknown History risperiDONE [RisperDAL] 1 mg PO QAM 03/13/18 11/14/18 Unknown History Aspirin EC [Aspirin Enteric Coated 81 mg PO DAILY 03/18/18 11/14/18 Unknown History TAB] Docusate Sodium [Colace CAP] 100 mg PO BID 03/18/18 11/14/18 Unknown History Folic Acid [Folvite] 1 mg PO DAILY 03/18/18 11/14/18 Unknown History ISOSORBIDE MONOnitrate [Imdur ER] 30 mg PO DAILY 03/18/18 11/14/18 Unknown History Metoprolol [Lopressor TAB] 50 mg PO BID 03/18/18 11/14/18 Unknown History Minoxidil [Loniten] 2.5 mg PO BID 03/18/18 11/14/18 Unknown History Sevelamer Carbonate [Renvela] 800 mg PO TIDWM 03/18/18 11/14/18 Unknown History Famotidine [Pepcid] 20 mg PO DAILY #30 tablet 06/09/18 11/14/18 Unknown Rx Sertraline [Zoloft] 100 mg PO QDAY 08/26/18 11/14/18 Unknown History risperiDONE [RisperDAL] 0.5 mg PO HS 08/26/18 11/14/18 Unknown History hydrALAZINE [Apresoline TAB] 25 mg PO Q8HR tablet 09/02/18 11/14/18 Unknown Rx Polyethylene Glycol 3350 [Miralax 17 gm PO QDAY #30 packet 11/05/18 11/14/18 Unknown Rx 3350] levoFLOXacin [Levaquin TAB] 500 mg PO Q48HR #3 tablet 11/05/18 11/14/18 Unknown Rx Active Medications: Generic Name Dose Route Start Last Admin Trade Name Freq PRN Reason Stop Dose Admin Acetaminophen 650 mg 11/13/18 21:14 Tylenol PO Q4H PRN Pain MILD(1-3)/Fever >100.5/HILL Lipase/Protease/Amylase 1 each 11/15/18 08:07 Pancrejewel Barrientos 10,500 Unit FEEDTUBE PRN PRN For Clogged Feeding Tube Aspirin 81 mg 11/14/18 10:00 11/17/18 10:39 Halfprin Ec PO Not Given DAILY [facility] Dextrose 25 ml 11/14/18 13:39 D50w (25gm) Syringe IV PRN PRN Hypoglycemia Docusate Sodium 100 mg 11/13/18 22:00 11/17/18 22:12 Colace PO 100 mg BID SANCHEZ Administration Epoetin Solitario 10,000 unit 11/14/18 14:40 11/15/18 17:49 Procrit IV 10,000 unit UMA PRN Administration hemoglobin less than 10 Famotidine 20 mg 11/14/18 10:00 11/17/18 10:40 Pepcid PO Not Given DAILY [facility] Folic Acid 1 mg 11/14/18 10:00 11/17/18 10:39 Folvite PO Not Given DAILY [facility] Gabapentin 100 mg 11/13/18 22:00 11/17/18 22:07 Neurontin PO 100 mg QHS SANCHEZ Administration Heparin Sodium (Porcine) 5,000 unit 11/13/18 22:00 11/17/18 22:09 Heparin SUB-Q 5,000 unit Q12HR SANCHEZ Administration Hydralazine HCl 25 mg 11/13/18 22:00 11/18/18 06:14 Apresoline PO 25 mg Q8HR SANCHEZ Administration Hydrocortisone Sodium Succinate 50 mg 11/17/18 22:00 11/18/18 06:13 Solu-Cortef IV 11/18/18 14:01 50 mg Q8HR SANCHEZ Administration Hydrocortisone Sodium Succinate 50 mg 11/19/18 10:00 Solu-Cortef IV 11/19/18 22:01 Q12HR SANCHEZ Hydrocortisone Sodium Succinate 50 mg 11/20/18 10:00 Solu-Cortef IV 11/20/18 10:01 DAILY SANCHEZ Cefepime HCl 1 gm in 100 mls @ 200 mls/hr 11/14/18 10:00 11/17/18 09:58 Maxipime/Ns 1 Gm/100 Ml IV 11/18/18 10:29 200 mls/hr Q24HR SANCHEZ Administration Protocol Ferric Sodium Gluconate 110 mls @ 100 mls/hr 11/14/18 11:00 11/17/18 10:32 Complex 125 mg/ Sodium IV 11/18/18 11:05 100 mls/hr Chloride QDAY SANCHEZ Administration Insulin Human Lispro 0 unit 11/17/18 11:30 11/17/18 22:05 Humalog SUB-Q 2 unit ACHS SANCHEZ Administration Protocol Ondansetron HCl 4 mg 11/13/18 21:14 Zofran IV Q8H PRN Nausea And Vomiting Polyethylene Glycol 17 gm 11/14/18 10:00 11/17/18 10:39 Miralax 3350 PO Not Given QDAY SANCHEZ Simple Syrup 15 ml 11/15/18 08:07 Simple Syrup FEEDTUBE PRN PRN Hypoglycemia Simple Syrup 30 ml 11/15/18 08:07 Simple Syrup FEEDTUBE PRN PRN Hypoglycemia Sodium Bicarbonate 325 mg 11/15/18 08:07 Sodium Bicarbonate FEEDTUBE PRN PRN For Clogged Feeding Tube Sodium Chloride 10 ml 11/13/18 22:00 11/17/18 22:12 Sodium Chloride Flush Syringe 10 Ml IV 10 ml BID SANCHEZ Administration Sodium Chloride 10 ml 11/13/18 21:14 Sodium Chloride Flush Syringe 10 Ml IV PRN PRN LINE FLUSH
[2018-11-18 09:38] LABS: Basophils % (Manual) 0 % (0.0-1.8); Eosinophils % (Manual) 0 % (0.0-4.3); Macrocytosis Few; Target Cells Few; Total Cells Counted 100
[2018-11-18 09:39] LABS: Platelet Estimate Consistent w Auto
--- NOTE | 2018-11-18 10:56 | Progress Note ---
Assessment and Plan Pt in AFib with CVR. Vasopressors weaned off. 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 However, he may be a poor candidate for long-term OAC in setting of mental status and multiple co- morbidities. Can consider heparin gtt in the interim if no contraindications. The patient has been seen in conjunction with Dr. Bullock who agrees with the assessment and plan of care. - Patient Problems (1) Atrial fibrillation with slow ventricular response Current Visit: Yes Status: Acute (2) History of loop recorder Current Visit: Yes Status: Acute (3) Sepsis Current Visit: Yes Status: Suspected Qualifiers: Sepsis type: sepsis due to unspecified organism Qualified Code(s): A41.9 - Sepsis, unspecified organism (4) Hypotension Current Visit: Yes Status: Resolved Qualifiers: Hypotension type: hemodialysis-associated hypotension Qualified Code(s): I95.3 - Hypotension of hemodialysis (5) Hypothermia Current Visit: Yes Status: Acute (6) Diabetes mellitus Current Visit: Yes Status: Chronic (7) End stage renal disease Current Visit: Yes Status: Chronic (8) History of CVA (cerebrovascular accident) Current Visit: Yes Status: Chronic (9) Legally blind Current Visit: Yes Status: Chronic (10) Anemia Current Visit: Yes Status: Chronic Qualifiers: Anemia type: iron deficiency Subjective Date of service: 11/18/18 Principal diagnosis: Hypotension, hypothermia, bradycardia, perm AF, ESRD, DM, Anemia Interval history: pt resting in bed, nonverbal, withdrawn. no family at bedside. in AFib with HR 80s - 70s on telemetry. Objective Last Vital Signs Temp 96.6 F L 11/18/18 08:00 Pulse 89 11/18/18 10:00 Resp 10 L 11/18/18 10:00 BP 142/87 11/18/18 10:00 Pulse Ox 98 11/18/18 10:00 - Physical Examination General: Other (withdrawn) HEENT: Positive: EOMI, Normocephaly, Mucus Membranes Moist Neck: Positive: neck supple, trachea midline Cardiac: Positive: irregularly irregular, S1/S2 Lungs: Positive: Decreased Breath Sounds Neuro: Positive: Other (withdrawn) Abdomen: Positive: Soft, Active Bowel Sounds. Negative: Tender Skin: Positive: Clear Musculoskeletal: Normal Range of Motion Extremities: Present: warm. Absent: edema - Labs and Meds Cardiac Enzymes 11/18/18 Range/Units Unknown AST 12 (5-40) units/L CBC 11/18/18 Range/Units 05:11 WBC 3.5 L (4.5-11.0) K/mm3 RBC 4.26 (3.65-5.03) M/mm3 Hgb 10.9 L (11.8-15.2) gm/dl Hct 35.4 L (35.5-45.6) % Plt Count 155 (140-440) K/mm3 Comprehensive Metabolic Panel 11/18/18 Range/Units Unknown Sodium 134 L (137-145) mmol/L Potassium 5.2 H D (3.6-5.0) mmol/L Chloride 99.6 (98-107) mmol/L Carbon Dioxide 21 L (22-30) mmol/L BUN 42 H (9-20) mg/dL Creatinine 5.2 H (0.8-1.5) mg/dL Glucose 124 H (75-100) mg/dL Calcium 9.4 (8.4-10.2) mg/dL AST 12 (5-40) units/L ALT < 5 L (7-56) units/L Alkaline Phosphatase 79 (35-129) units/L Total Protein 6.8 (6.3-8.2) g/dL Albumin 2.6 L (3.9-5) g/dL - Imaging and Cardiology Stress echo: report reviewed (MPI 04/30: Moderate sized fixed inferior wall perfusion defect of moderate severity, moderate size reversible apical defect) Echo: report reviewed (echo 03/08: Mild to moderate LVH, EF 40-45%,)
[2018-11-18] MEDS ORDERED: NACL 0.9 (PRIMING MACHINE ONLY DIALYSIS) MC ONE (12:30)
--- NOTE | 2018-11-18 12:30 | Progress Note ---
Assessment and Plan Assessment and plan: 63-year-old legally blind -[place] male patient [facility] resident was admitted through emergency room with generalized weakness, workup is consistent with sepsis, septic shock admitted to ICU on levo fed, patient also has end-stage renal disease on hemodialysis , had a cardiac and hypotension and gastroesophageal reflux disease Stabilized in ICU, off Levophed, then transferred to medical floor, Speech and swallow evaluated the patient and recommended pured diet; Patient is stable to be transferred out of ICU to medical floor Assessment and plan: -- End stage renal disease/on hemodialysis Nephrology following, HD per schedule --Hyponatremia: To fluid overload , ESRD ,Sodium levels improving Monitor closely -- Hypotension/septic shock: Resolved Possible volume depletion, possible sepsis off Levophed, s/p empiric antibiotics --Sepsis/resolved s/p 5 days empiric antibiotics, cultures negative to date, -- HTN (hypertension) continue current antihypertensives and when necessary medications -- GERD (gastroesophageal reflux disease) Cont PPI's -- Anemia of end-stage renal disease/iron deficiency Sec to ESRD and Iron def. closely monitor H&H Procrit during dialysis , transfuse as needed Iron supplements -- Severe Malnutrition/hypoalbuminemia Severe malnutrition/hypoalbuminemia Nutrition supplements, nutrition consult --DVT prophylaxis On Heparin and GI prophylaxis . --full CODE STATUS Monitor closely and adjust management as needed Patient is stable , transfer the patient out of ICU to medical floor Disposition; possible discharge back to [facility] in 1-2 days if stable History Interval history: Patient seen and examined medical records reviewed The patient is legally blind, responds appropriately to verbal commands Received hemodialysis today Vital signs noted, not in acute distress Hospitalist Physical - Constitutional Vitals: Temp Pulse Resp BP Pulse Ox 96.6 F L 78 18 164/83 98 11/18/18 11:00 11/18/18 12:15 11/18/18 11:00 11/18/18 12:15 11/18/18 10:00 General appearance: Present: no acute distress, well-nourished, other (responds appropriately , legally blind) - EENT Eyes: Present: PERRL, EOM intact - Neck Neck: Present: supple, normal ROM - Respiratory Respiratory effort: normal Respiratory: bilateral: diminished, negative: rales, rhonchi, wheezing - Cardiovascular Rhythm: regular Heart Sounds: Present: S1 & S2 - Extremities Extremities: no ischemia, No edema - Abdominal General gastrointestinal: soft, non-tender, non-distended, normal bowel sounds - Integumentary Integumentary: Present: clear, warm - Psychiatric Psychiatric: appropriate mood/affect, cooperative - Neurologic Neurologic: CNII-XII intact, moves all extremities Results - Labs CBC & Chem 7: 11/18/18 05:11 11/18/18 Unknown Labs: Laboratory Last Values WBC 3.5 K/mm3 (4.5-11.0) L 11/18/18 05:11 RBC 4.26 M/mm3 (3.65-5.03) 11/18/18 05:11 Hgb 10.9 gm/dl (11.8-15.2) L 11/18/18 05:11 Hct 35.4 % (35.5-45.6) L 11/18/18 05:11 MCV 83 fl (84-94) L 11/18/18 05:11 MCH 26 pg (28-32) L 11/18/18 05:11 MCHC 31 % (32-34) L 11/18/18 05:11 RDW 22.3 % (13.2-15.2) H 11/18/18 05:11 Plt Count 155 K/mm3 (140-440) 11/18/18 05:11 Lymph % (Auto) 7.6 % (13.4-35.0) L 11/17/18 06:41 [place] % (Auto) 3.7 % (0.0-7.3) 11/17/18 06:41 Eos % (Auto) 0.1 % (0.0-4.3) 11/17/18 06:41 Baso % (Auto) 0.5 % (0.0-1.8) 11/17/18 06:41 Lymph # 0.3 K/mm3 (1.2-5.4) L 11/17/18 06:41 [place]age # 0.2 K/mm3 (0.0-0.8) 11/17/18 06:41 Eos # 0.0 K/mm3 (0.0-0.4) 11/17/18 06:41 Baso # 0.0 K/mm3 (0.0-0.1) 11/17/18 06:41 Add Manual Diff Complete 11/18/18 05:11 Total Counted 100 11/18/18 05:11 Seg Neutrophils % 88.1 % (40.0-70.0) H 11/17/18 06:41 Seg Neuts % (Manual) 94.0 % (40.0-70.0) H 11/18/18 05:11 Band Neutrophils % 0 % 11/18/18 05:11 Lymphocytes % (Manual) 4.0 % (13.4-35.0) L 11/18/18 05:11 Reactive Lymphs % (Man) 0 % 11/18/18 05:11 Monocytes % (Manual) 2.0 % (0.0-7.3) 11/18/18 05:11 Eosinophils % (Manual) 0 % (0.0-4.3) 11/18/18 05:11 Basophils % (Manual) 0 % (0.0-1.8) 11/18/18 05:11 Metamyelocytes % 0 % 11/18/18 05:11 Myelocytes % 0 % 11/18/18 05:11 Promyelocytes % 0 % 11/18/18 05:11 Blast Cells % 0 % 11/18/18 05:11 Nucleated RBC % Not Reportable 11/18/18 05:11 Seg Neutrophils # 3.8 K/mm3 (1.8-7.7) 11/17/18 06:41 Seg Neutrophils # Man 3.3 K/mm3 (1.8-7.7) 11/18/18 05:11 Band Neutrophils # 0.0 K/mm3 11/18/18 05:11 Lymphocytes # (Manual) 0.1 K/mm3 (1.2-5.4) L 11/18/18 05:11 Abs React Lymphs (Man) 0.0 K/mm3 11/18/18 05:11 Monocytes # (Manual) 0.1 K/mm3 (0.0-0.8) 11/18/18 05:11 Eosinophils # (Manual) 0.0 K/mm3 (0.0-0.4) 11/18/18 05:11 Basophils # (Manual) 0.0 K/mm3 (0.0-0.1) 11/18/18 05:11 Metamyelocytes # 0.0 K/mm3 11/18/18 05:11 Myelocytes # 0.0 K/mm3 11/18/18 05:11 Promyelocytes # 0.0 K/mm3 11/18/18 05:11 Blast Cells # 0.0 K/mm3 11/18/18 05:11 WBC Morphology Not Reportable 11/18/18 05:11 Hypersegmented Neuts Not Reportable 11/18/18 05:11 Hyposegmented Neuts Not Reportable 11/18/18 05:11 Hypogranular Neuts Not Reportable 11/18/18 05:11 Smudge Cells Not Reportable 11/18/18 05:11 Toxic Granulation Not Reportable 11/18/18 05:11 Toxic Vacuolation Not Reportable 11/18/18 05:11 Dohle Bodies Not Reportable 11/18/18 05:11 Pelger-Huet Anomaly Not Reportable 11/18/18 05:11 Tramaine Rods Not Reportable 11/18/18 05:11 Platelet Estimate Consistent w auto 11/18/18 05:11 Clumped Platelets Not Reportable 11/18/18 05:11 Plt Clumps, EDTA Not Reportable 11/18/18 05:11 Large Platelets Not Reportable 11/18/18 05:11 Giant Platelets Not Reportable 11/18/18 05:11 Platelet Satelliting Not Reportable 11/18/18 05:11 Plt Morphology Comment Not Reportable 11/18/18 05:11 RBC Morphology Not Reportable 11/18/18 05:11 Dimorphic RBCs Not Reportable 11/18/18 05:11 Polychromasia Not Reportable 11/18/18 05:11 Hypochromasia Not Reportable 11/18/18 05:11 Poikilocytosis Not Reportable 11/18/18 05:11 Anisocytosis Not Reportable 11/18/18 05:11 Microcytosis Not Reportable 11/18/18 05:11 Macrocytosis Few 11/18/18 05:11 Spherocytes Not Reportable 11/18/18 05:11 Pappenheimer Bodies Not Reportable 11/18/18 05:11 Sickle Cells Not Reportable 11/18/18 05:11 Target Cells Few 11/18/18 05:11 Tear Drop Cells Not Reportable 11/18/18 05:11 Ovalocytes Not Reportable 11/18/18 05:11 Helmet Cells Not Reportable 11/18/18 05:11 Zhou-[place] Bodies Not Reportable 11/18/18 05:11 [place] Rings Not Reportable 11/18/18 05:11 Hebert Cells Not Reportable 11/18/18 05:11 Bite Cells Not Reportable 11/18/18 05:11 Crenated Cell Not Reportable 11/18/18 05:11 Elliptocytes Not Reportable 11/18/18 05:11 Acanthocytes (Spur) Not Reportable 11/18/18 05:11 Rouleaux Not Reportable 11/18/18 05:11 Hemoglobin C Crystals Not Reportable 11/18/18 05:11 Schistocytes Not Reportable 11/18/18 05:11 Malaria parasites Not Reportable 11/18/18 05:11 Jose Juan Bodies Not Reportable 11/18/18 05:11 Hem Pathologist Commnt No 11/18/18 05:11 PT 16.0 Sec. (12.2-14.9) H 11/13/18 11:43 INR 1.20 (0.87-1.13) H 11/13/18 11:43 APTT 36.5 Sec. (24.2-36.6) 11/13/18 11:43 Sodium 134 mmol/L (137-145) L 11/18/18 Unknown Potassium 5.2 mmol/L (3.6-5.0) H D 11/18/18 Unknown Chloride 99.6 mmol/L (98-107) 11/18/18 Unknown Carbon Dioxide 21 mmol/L (22-30) L 11/18/18 Unknown Anion Gap 19 mmol/L 11/18/18 Unknown BUN 42 mg/dL (9-20) H 11/18/18 Unknown Creatinine 5.2 mg/dL (0.8-1.5) H 11/18/18 Unknown Estimated GFR 14 ml/min 11/18/18 Unknown BUN/Creatinine Ratio 8 % 11/18/18 Unknown Glucose 124 mg/dL (75-100) H 11/18/18 Unknown POC Glucose 118 (70-105) H 11/18/18 07:57 Hemoglobin A1c 4.9 % (4-6) 11/13/18 11:43 Calcium 9.4 mg/dL (8.4-10.2) 11/18/18 Unknown Iron 18 ug/dL (49-181) L 11/14/18 06:25 TIBC 55 mcg/dL (250-450) L 11/14/18 06:25 % Saturation 32.73 % 11/14/18 06:25 Transferrin 49 mg/dl (180-329) L 11/14/18 06:25 Total Bilirubin 0.30 mg/dL (0.1-1.2) 11/18/18 Unknown AST 12 units/L (5-40) 11/18/18 Unknown ALT < 5 units/L (7-56) L 11/18/18 Unknown Alkaline Phosphatase 79 units/L (35-129) 11/18/18 Unknown Total Protein 6.8 g/dL (6.3-8.2) 11/18/18 Unknown Albumin 2.6 g/dL (3.9-5) L 11/18/18 Unknown Albumin/Globulin Ratio 0.6 % 11/18/18 Unknown Vitamin B12 603.4 pg/mL (211-911) 11/14/18 09:00 RBC Folic Acid >1000 ng/mL (>280) 11/14/18 06:25 TSH 4.280 mlU/mL (0.270-4.200) H 11/13/18 11:43 Free T4 0.80 ng/dL (0.76-1.46) 11/13/18 11:43 Blood Type O POSITIVE 11/14/18 12:17 Antibody Screen Negative 11/14/18 12:17 Crossmatch See Detail 11/14/18 12:17 Active Medications - Current Medications Current Medications: Generic Name Dose Route Start Last Admin Trade Name Freq PRN Reason Stop Dose Admin Acetaminophen 650 mg 11/13/18 21:14 Tylenol PO Q4H PRN Pain MILD(1-3)/Fever >100.5/HILL Lipase/Protease/Amylase 1 each 11/15/18 08:[address] 10,500 Unit FEEDTUBE PRN PRN For Clogged Feeding Tube Aspirin 81 mg 11/14/18 10:00 11/18/18 09:14 Halfprin Ec PO 81 mg DAILY SANCHEZ Administration Dextrose 25 ml 11/14/18 13:39 D50w (25gm) Syringe IV PRN PRN Hypoglycemia Docusate Sodium 100 mg 11/13/18 22:00 11/18/18 09:13 Colace PO 100 mg BID SANCHEZ Administration Epoetin Solitario 10,000 unit 11/14/18 14:40 11/15/18 17:49 Procrit IV 10,000 unit UMA PRN Administration hemoglobin less than 10 Famotidine 20 mg 11/14/18 10:00 11/18/18 09:14 Pepcid PO 20 mg DAILY SANCHEZ Administration Folic Acid 1 mg 11/14/18 10:00 11/18/18 09:13 Folvite PO 1 mg DAILY SANCHEZ Administration Gabapentin 100 mg 11/13/18 22:00 11/17/18 22:07 Neurontin PO 100 mg QHS SANCHEZ Administration Heparin Sodium (Porcine) 5,000 unit 11/13/18 22:00 11/18/18 09:14 Heparin SUB-Q 5,000 unit Q12HR SANCHEZ Administration Hydralazine HCl 25 mg 11/13/18 22:00 11/18/18 06:14 Apresoline PO 25 mg Q8HR SANCHEZ Administration Hydrocortisone Sodium Succinate 50 mg 11/17/18 22:00 11/18/18 06:13 Solu-Cortef IV 11/18/18 14:01 50 mg Q8HR SANCHEZ Administration Hydrocortisone Sodium Succinate 50 mg 11/19/18 10:00 Solu-Cortef IV 11/19/18 22:01 Q12HR SANCHEZ Hydrocortisone Sodium Succinate 50 mg 11/20/18 10:00 Solu-Cortef IV 11/20/18 10:01 DAILY [facility] Insulin Human Lispro 0 unit 11/17/18 11:30 11/18/18 08:30 Humalog SUB-Q Not Given ACHS [facility] Protocol Ondansetron HCl 4 mg 11/13/18 21:14 Zofran IV Q8H PRN Nausea And Vomiting Polyethylene Glycol 17 gm 11/14/18 10:00 11/18/18 09:14 Miralax 3350 PO 17 gm QDAY SANCHEZ Administration Simple Syrup 15 ml 11/15/18 08:07 Simple Syrup FEEDTUBE PRN PRN Hypoglycemia Simple Syrup 30 ml 11/15/18 08:07 Simple Syrup FEEDTUBE PRN PRN Hypoglycemia Sodium Bicarbonate 325 mg 11/15/18 08:07 Sodium Bicarbonate FEEDTUBE PRN PRN For Clogged Feeding Tube Sodium Chloride 10 ml 11/13/18 22:00 11/18/18 09:11 Sodium Chloride Flush Syringe 10 Ml IV 10 ml BID SANCHEZ Administration Sodium Chloride 10 ml 11/13/18 21:14 Sodium Chloride Flush Syringe 10 Ml IV PRN PRN LINE FLUSH Nutrition/Malnutrition Assess - Dietary Evaluation Nutrition/Malnutrition Findings: Nutrition Notes Start: 11/14/18 10:54 Freq: Status: Active Protocol: Document 11/18/18 10:25 TW (Rec: 11/18/18 10:37 TW [id number]) Co-Sign 11/18/18 10:25 LP Nutrition Notes Initial or Follow up Reassessment Current Diagnosis CKD (stage V CKD),Diabetes, Sepsis,Hypertension,Heart Failure,Malnutrition,Stroke Other Pertinent Diagnosis on HD Current Diet Mechanical soft diet. Labs/Tests Na: 134 K: 5.0 Pertinent Medications Reviewed. Height 5 ft 11 in Weight 113.7 kg [place] Body Weight (kg) 78.18 BMI 34.9 Subjective/Other Information Per RN, pt passed bedside swallow evaluation and is eating about half of his food and is tolerating the pureed diet well. Pt was asleep at visit, but RN recommended asking about an ONS at next visit. Percent of energy/protein needs met: 38%/35% Burn Absent Trauma Absent #1 Nutrition Diagnosis Inadequate oral intake Etiology lethargy Diagnosis Progress(for reassessment Continues documentation) Is patient on ventilator? No Is Patient Ambulatory and/or Out of Bed No REE-([place]-confined to bed) 2343.732 Kcal/Kg value to use for calculation 18 Approximate Energy Requirements Using 2047 kcal/Kg Additional Notes Protein needs are 108-130g (1- 1.2g/kg) Fluid needs are 1ml/kcal or per MD Nutrition Intervention Change Diet Order: Pureed Provides kCal: 350 Provides Protein (gm) 20 Goal #1 Meet at least 80% of kcal and protein needs via TF Anticipated Discharge Needs: Unable to determine at this time Follow-Up By: 11/20/18 Additional Comments F/U For PO intakes and need for ONS
--- NOTE | 2018-11-18 12:44 | Progress Note ---
Assessment and Plan Hypotension, Sepsis Hypothermia Bradycardia,c/u ESRD Recommendations: Complete ABX's- see IMS note Monitor K+ Cards f/u of bradycardia.Monitoring Speech evaluation - on poured food HD per nephrology Dc marcial May be transferred after the above , if stable, no support issues Discussed with everett in detail, all questions answered CCT 31 min Subjective Principal diagnosis: Hypotension, hypothermia, bradycardia, perm AF, ESRD, DM, Anemia Objective Vital Signs - 12hr 11/18/18 11/18/18 11/18/18 01:00 01:30 02:00 Temperature Pulse Rate 87 77 84 Pulse Rate [ Left Radial] Respiratory 8 L 9 L 14 Rate Blood Pressure 147/79 147/79 160/86 O2 Sat by Pulse 98 100 99 Oximetry 11/18/18 11/18/18 11/18/18 02:31 03:00 03:31 Temperature Pulse Rate 84 77 83 Pulse Rate [ Left Radial] Respiratory 10 L 11 L 10 L Rate Blood Pressure 160/86 158/76 158/76 O2 Sat by Pulse 100 98 99 Oximetry 11/18/18 11/18/18 11/18/18 04:00 04:01 04:31 Temperature 98.6 F Pulse Rate 78 84 Pulse Rate [ 82 Left Radial] Respiratory 7 L 7 L 8 L Rate Blood Pressure 139/67 139/67 O2 Sat by Pulse 100 96 100 Oximetry 11/18/18 11/18/18 11/18/18 05:00 05:31 06:00 Temperature Pulse Rate 88 Pulse Rate [ Left Radial] Respiratory 11 L Rate Blood Pressure 152/84 139/67 152/77 O2 Sat by Pulse 100 100 99 Oximetry 11/18/18 11/18/18 11/18/18 06:14 07:00 08:00 Temperature 96.6 F L Pulse Rate 89 79 Pulse Rate [ Left Radial] Respiratory 7 L 10 L Rate Blood Pressure 152/77 156/73 O2 Sat by Pulse 98 100 Oximetry 11/18/18 11/18/18 11/18/18 08:01 09:01 09:14 Temperature Pulse Rate 82 73 Pulse Rate [ Left Radial] Respiratory 10 L 8 L Rate Blood Pressure 173/90 175/88 O2 Sat by Pulse 99 99 99 Oximetry 11/18/18 11/18/18 11/18/18 10:00 11:00 11:15 Temperature 96.6 F L Pulse Rate 97 H 88 90 Pulse Rate [ Left Radial] Respiratory 10 L 18 Rate Blood Pressure 142/87 168/80 144/84 O2 Sat by Pulse 98 Oximetry 11/18/18 11/18/18 11/18/18 11:30 11:45 12:00 Temperature Pulse Rate 84 82 78 Pulse Rate [ Left Radial] Respiratory Rate Blood Pressure 156/81 146/90 161/87 O2 Sat by Pulse Oximetry 11/18/18 12:15 Temperature Pulse Rate 78 Pulse Rate [ Left Radial] Respiratory Rate Blood Pressure 164/83 O2 Sat by Pulse Oximetry Constitutional: no acute distress, alert Eyes: non-icteric ENT: oropharynx moist Neck: supple Effort: no acute distress Ascultation: Bilateral: clear, diminished breath sounds Cardiovascular: regular rate and rhythm Gastrointestinal: normoactive bowel sounds, non-distended Integumentary: normal Extremities: no cyanosis, no cyanosis, no cyanosis Neurologic: non-focal exam, pupils equal and round, CN II-XII normal, other (sleepy) CBC and BMP: 11/18/18 05:11 11/18/18 Unknown ABG, PT/INR, D-dimer: PT/INR, D-dimer PT 16.0 Sec. (12.2-14.9) H 11/13/18 11:43 INR 1.20 (0.87-1.13) H 11/13/18 11:43 Abnormal lab findings: Abnormal Labs 11/13/18 11/13/18 11/13/18 11:43 11:43 11:43 WBC RBC Hgb 9.2 L Hct 29.6 L MCV 81 L MCH 25 L MCHC 31 L RDW 21.4 H Plt Count Lymph % (Auto) 6.0 L [place] % (Auto) 10.4 H Lymph # 0.4 L Seg Neutrophils % 82.5 H Seg Neuts % (Manual) Lymphocytes % (Manual) Lymphocytes # (Manual) PT INR Sodium 127 L Potassium Chloride 89.0 L Carbon Dioxide BUN 31 H Creatinine 4.3 H Glucose POC Glucose Iron TIBC Transferrin AST < 5 L ALT < 5 L Total Protein 5.8 L Albumin 2.0 L TSH 4.280 H Crossmatch 11/13/18 11/14/18 11/14/18 11:43 06:00 06:25 WBC 4.2 L RBC 3.64 L Hgb 9.2 L Hct 29.6 L MCV 81 L MCH 25 L MCHC 31 L RDW 21.6 H Plt Count Lymph % (Auto) 10.6 L [place] % (Auto) 12.2 H Lymph # 0.5 L Seg Neutrophils % 73.7 H Seg Neuts % (Manual) Lymphocytes % (Manual) Lymphocytes # (Manual) PT 16.0 H INR 1.20 H Sodium 131 L Potassium Chloride 92.6 L Carbon Dioxide BUN 33 H Creatinine 4.8 H Glucose POC Glucose Iron TIBC Transferrin AST < 5 L ALT < 5 L Total Protein 5.8 L Albumin 2.1 L TSH Crossmatch 11/14/18 11/14/18 11/14/18 06:25 12:17 12:27 WBC RBC Hgb Hct MCV MCH MCHC RDW Plt Count Lymph % (Auto) [place] % (Auto) Lymph # Seg Neutrophils % Seg Neuts % (Manual) Lymphocytes % (Manual) Lymphocytes # (Manual) PT INR Sodium Potassium Chloride Carbon Dioxide BUN Creatinine Glucose POC Glucose 64 L Iron 18 L TIBC 55 L Transferrin 49 L AST ALT Total Protein Albumin TSH Crossmatch See Detail 11/15/18 11/15/18 11/15/18 03:51 03:51 17:51 WBC 2.2 L RBC Hgb 9.3 L Hct 30.2 L MCV 82 L MCH 25 L MCHC 31 L RDW 21.7 H Plt Count Lymph % (Auto) [place] % (Auto) Lymph # Seg Neutrophils % Seg Neuts % (Manual) 98.0 H Lymphocytes % (Manual) 2.0 L Lymphocytes # (Manual) 0.0 L PT INR Sodium 131 L Potassium Chloride 95.3 L Carbon Dioxide 21 L BUN 33 H Creatinine 5.3 H Glucose POC Glucose 138 H Iron TIBC Transferrin AST ALT Total Protein Albumin TSH Crossmatch 11/15/18 11/16/18 11/16/18 23:26 03:50 03:50 WBC 2.3 L RBC 5.71 H Hgb Hct 47.1 H D MCV 83 L MCH 25 L MCHC 31 L RDW 22.0 H Plt Count 105 L Lymph % (Auto) [place] % (Auto) Lymph # Seg Neutrophils % Seg Neuts % (Manual) 91.0 H Lymphocytes % (Manual) 7.0 L Lymphocytes # (Manual) 0.2 L PT INR Sodium Potassium Chloride Carbon Dioxide BUN 25 H Creatinine 3.9 H Glucose 119 H POC Glucose 136 H Iron TIBC Transferrin AST ALT Total Protein Albumin TSH Crossmatch 11/16/18 11/16/18 11/16/18 12:24 13:53 17:28 WBC 2.6 L RBC Hgb 10.2 L D Hct 33.3 L D MCV 83 L MCH 26 L MCHC 31 L RDW 22.1 H Plt Count Lymph % (Auto) [place] % (Auto) Lymph # Seg Neutrophils % Seg Neuts % (Manual) Lymphocytes % (Manual) Lymphocytes # (Manual) PT INR Sodium Potassium Chloride Carbon Dioxide BUN Creatinine Glucose POC Glucose 132 H 162 H Iron TIBC Transferrin AST ALT Total Protein Albumin TSH Crossmatch 11/16/18 11/17/18 11/17/18 21:36 06:41 06:41 WBC 4.3 L RBC Hgb 9.6 L Hct 31.2 L MCV 83 L MCH 26 L MCHC 31 L RDW 21.9 H Plt Count Lymph % (Auto) 7.6 L [place] % (Auto) Lymph # 0.3 L Seg Neutrophils % 88.1 H Seg Neuts % (Manual) Lymphocytes % (Manual) Lymphocytes # (Manual) PT INR Sodium 136 L Potassium Chloride Carbon Dioxide BUN 34 H Creatinine 4.5 H Glucose 186 H POC Glucose 174 H Iron TIBC Transferrin AST ALT Total Protein Albumin TSH Crossmatch 11/17/18 11/17/18 11/17/18 08:01 12:11 16:42 WBC RBC Hgb Hct MCV MCH MCHC RDW Plt Count Lymph % (Auto) [place] % (Auto) Lymph # Seg Neutrophils % Seg Neuts % (Manual) Lymphocytes % (Manual) Lymphocytes # (Manual) PT INR Sodium Potassium Chloride Carbon Dioxide BUN Creatinine Glucose POC Glucose 221 H 164 H 135 H Iron TIBC Transferrin AST ALT Total Protein Albumin TSH Crossmatch 11/17/18 11/18/18 11/18/18 21:11 05:11 07:57 WBC 3.5 L RBC Hgb 10.9 L Hct 35.4 L MCV 83 L MCH 26 L MCHC 31 L RDW 22.3 H Plt Count Lymph % (Auto) [place] % (Auto) Lymph # Seg Neutrophils % Seg Neuts % (Manual) 94.0 H Lymphocytes % (Manual) 4.0 L Lymphocytes # (Manual) 0.1 L PT INR Sodium Potassium Chloride Carbon Dioxide BUN Creatinine Glucose POC Glucose 170 H 118 H Iron TIBC Transferrin AST ALT Total Protein Albumin TSH Crossmatch 11/18/18 Unknown WBC RBC Hgb Hct MCV MCH MCHC RDW Plt Count Lymph % (Auto) [place] % (Auto) Lymph # Seg Neutrophils % Seg Neuts % (Manual) Lymphocytes % (Manual) Lymphocytes # (Manual) PT INR Sodium 134 L Potassium 5.2 H D Chloride Carbon Dioxide 21 L BUN 42 H Creatinine 5.2 H Glucose 124 H POC Glucose Iron TIBC Transferrin AST ALT < 5 L Total Protein Albumin 2.6 L TSH Crossmatch
[2018-11-18] MEDS: FERRLECIT 125 MG in NACL 0.9% 100 ML IV SCH (13:45)
[2018-11-18] MEDS: PROCRIT IV PRN (14:15)
[2018-11-18] MEDS: NEURONTIN PO SCH (21:37)
[2018-11-19] MEDS: APRESOLINE PO SCH (06:13)
[2018-11-19 06:25] VITALS: BP 158/73
[2018-11-19] MEDS: HumaLOG SUB-Q SCH ×2 (08:00)
[2018-11-19 08:22] LABS: Calcium 9.3 mg/dL (8.4-10.2)
--- NOTE | 2018-11-19 08:31 | Discharge Summary ---
Providers - Providers Date of Admission: 11/13/18 21:15 Date of discharge: 11/19/18 Attending physician: MARIA C POLLARD 11/13/18 21:43 Consult to Physician [CONS] Routine Comment: Consulting Provider: SAM IRIZARRY Physician Instructions: Reason For Exam: ESRD 11/14/18 00:12 Consult to Physician [CONS] Routine Comment: Consulting Provider: KAYLEE PRITCHARD Physician Instructions: Reason For Exam: cc 11/14/18 06:58 Consult to Dietitian/Nutrition [CONS] Routine Physician Instructions: Reason For Exam: malnutrition Reason for Consult: Nutrition Recommendations Reason for Consult: Malnutrition 11/14/18 10:48 Consult to Physician [CONS] Urgent Comment: Consulting Provider: POONAM HUTCHISON Physician Instructions: Reason For Exam: cardiac management 11/14/18 10:49 Consult to Physician [CONS] Routine Comment: Consulting Provider: YESSY MAZARIEGOS Physician Instructions: Reason For Exam: Afib with bradycardia Physical Therapy Evaluation and Treat [CONS] Routine Comment: Reason For Exam: Debility 11/14/18 13:40 Consult to Dietitian/Nutrition [CONS] Routine Physician Instructions: Assess nutrtn needs, initiate, modify, manage TF Reason For Exam: Reason for Consult: Write/Manage Tube Feeding Reason for Consult: Write/Manage Tube Feeding 11/17/18 09:28 Speech Therapy Evaluation and Treat [CONS] Stat Reason For Exam: fail bedside swallow eval Primary care physician: REGULATORY INTERN Hospitalization Condition: Stable Hospital course: Patient is a 63 yo man from [facility] with a history of blindness, CVA, CHF, PPM/ICD, loop recorder since 2012 that is MRI compatible, IDDM type 2, sepsis left foot ulcer, afib, ESRD with complications on HD TTS, hypertension, AOCD and GERD who presented to [facility] with fatique, hypothermia and hypotension on 11/13/18. He was admitted to ICU on Levophed gtt for septic shock but source of Sepsis not readily known to me. pCXR showed mild pulmonary edema. Abd XRay just showed dobhuff placement. No UA due to ESRD. He had right buttock sacral decubitus ulcer that did not look infectious on the admission photos. No Septic shock, no sepsis without infection found Hypotension most likely hypovolemic shock ESRD on HD Severe Malnutrition Disposition: DC/[place]-03 SNF W [facility] CERT Time spent for discharge: 32 minutes Core Measure Documentation - Palliative Care Palliative Care/ Comfort Measures: Not Applicable - Core Measures Any of the following diagnoses?: none - VTE Discharge Requirements Deep Vein Thrombosis/Pulmonary Embolism Present on Admission: No Has pt received <5 days of overlap therapy or INR<2.0: No Anticoagulant overlap therapy prescribed at discharge: No Contraindication No Overlap Therapy order at DC: Not Indicated Exam - Physical Exam Narrative exam: Gen: ill appearing, NAD, Awake, Alert, Orientated HEENT: NCAT, EOMI, PERRL, OP Clear Neck: supple, no adenopathy, no thyromegaly, no JVD CVS/Heart: RRR, normal S1S2, pulses present bilaterally Chest/Lungs: CTA B, Symmetrical chest expansion, good air entry bilaterally GI/Abdomen: soft, NTND, good bowel sounds, no guarding or rebound /Bladder: no suprapubic tenderness, no CVA or paraspinal tenderness Extermity/Skin: no c/c/e, no obvious rash MSK: FROM x 4 Neuro: CN 2-12 grossly intact, no new focal deficits Psych: calm - Constitutional Vitals: Temp Pulse Resp BP Pulse Ox 97.6 F 86 20 158/73 100 11/19/18 06:07 11/19/18 06:07 11/19/18 06:07 11/19/18 06:07 11/19/18 06:07 Plan Activity: other (no strenous activity activity) Diet: renal (pureed diet) Follow up with: PRIMARY CARE, [Primary Care Provider] - 3-5 Days
--- NOTE | 2018-11-19 08:46 | Progress Note ---
Subjective Principal diagnosis: Hypotension, hypothermia, bradycardia, perm AF, ESRD, DM, Anemia Interval history: Patient was seen today for follow-up on multiple renal related issues resting comfortably Not agitated Eating with help Currently on dialysis Saturday and Saturday Vitals labs intake output medications were reviewed Social history: Reviewed Allergies: Reviewed Family history: Reviewed Physical examination HEENT: Oral mucosa moist no pallor or icterus Neck: Supple no JVD Chest: Clear to auscultation anteriorly Service: Site clear CVS: Regular rate and rhythm S1 and S2 heard Abdomen: Soft nontender no suprapubic masses no organomegaly appreciable Extremity: Dry skin less than 1+ peripheral edema Musculoskeletal: No joint effusion noted in knees and ankle Neurological: Arousable Dermatology: No petechial rashes Psychiatry: No evidence of any agitation and aggression noted Assessment and plan End-stage renal disease: Continue with hemodialysis treatment 3 times per week judicious ultrafiltration Monitoring elected labs Manage anemia, monitor phosphorus and PTH Long-term prognosis guarded to poor due to dialysis status Iron saturation is normal 32%, normal B12 and folic acid Anemia is also nutritional patient's albumin is 2.1 currently improving 2.6 maintain high-protein diet Also does have history of prior coronary artery disease and CVA with schizophrenia We'll continue to follow and make recommendation from renal standpoint Objective - Vital Signs Vital signs: Vital Signs - 12hr 11/18/18 11/19/18 23:22 06:07 Temperature 98.4 F 97.6 F Pulse Rate 92 H 86 Respiratory 18 20 Rate Blood Pressure 140/76 158/73 O2 Sat by Pulse 100 100 Oximetry - Lab 11/18/18 05:11 11/19/18 07:50 Most recent lab results Calcium 9.3 mg/dL (8.4-10.2) 11/19/18 07:50 Medications & Allergies - Medications Allergies/Adverse Reactions: Allergies haloperidol [From Haldol] Adverse Reaction (Verified 03/13/18 12:10) Unknown haloperidol lactate [From Haldol] Adverse Reaction (Verified 03/13/18 12:10) Unknown Home Medications: Home Medications Medication Instructions Recorded Confirmed Last Taken Type Gabapentin [Neurontin] 100 mg PO QHS #60 capsule 10/02/17 11/14/18 01/19/18 19:00 Rx risperiDONE [RisperDAL] 1 mg PO QAM 03/13/18 11/14/18 Unknown History Sevelamer Carbonate [Renvela] 800 mg PO TIDWM 03/18/18 11/14/18 Unknown History Famotidine [Pepcid] 20 mg PO DAILY #30 tablet 06/09/18 11/14/18 Unknown Rx Sertraline [Zoloft] 100 mg PO QDAY 08/26/18 11/14/18 Unknown History risperiDONE [RisperDAL] 0.5 mg PO HS 08/26/18 11/14/18 Unknown History Polyethylene Glycol 3350 [Miralax 17 gm PO QDAY #30 packet 11/05/18 11/14/18 Unknown Rx 3350] Acetaminophen [Acetaminophen TAB] 650 mg PO Q4H PRN #15 tablet 11/19/18 Unknown Rx Aspirin EC [Aspirin Enteric Coated 81 mg PO DAILY #30 11/19/18 11/14/18 Unknown Rx TAB] Docusate Sodium [Colace CAP] 100 mg PO BID #60 11/19/18 11/14/18 Unknown Rx Epoetin Solitario 10,000 Unit [Procrit] 10,000 unit IV UMA PRN #1 vial 11/19/18 Unknown Rx Folic Acid [Folvite] 1 mg PO DAILY #30 tab 11/19/18 11/14/18 Unknown Rx Lipase/Protease/Amylase [Pancreaze 1 each FEEDTUBE PRN PRN #30 capsule 11/19/18 Unknown Rx 10,500 Unit] Sodium Bicarbonate 325 mg FEEDTUBE PRN PRN #30 tablet 11/19/18 Unknown Rx hydrALAZINE [Apresoline TAB] 25 mg PO Q8HR #30 tablet 11/19/18 11/14/18 Unknown Rx Active Medications: Generic Name Dose Route Start Last Admin Trade Name Freq PRN Reason Stop Dose Admin Acetaminophen 650 mg 11/13/18 21:14 Tylenol PO Q4H PRN Pain MILD(1-3)/Fever >100.5/HILL Lipase/Protease/Amylase 1 each 11/15/18 08:07 [place]rientos 10,500 Unit FEEDTUBE PRN PRN For Clogged Feeding Tube Aspirin 81 mg 11/14/18 10:00 11/18/18 09:14 Halfprin Ec PO 81 mg DAILY SANCHEZ Administration Dextrose 25 ml 11/14/18 13:39 D50w (25gm) Syringe IV PRN PRN Hypoglycemia Docusate Sodium 100 mg 11/13/18 22:00 11/18/18 21:36 Colace PO 100 mg BID SANCHEZ Administration Epoetin Solitario 10,000 unit 11/14/18 14:40 11/18/18 14:15 Procrit IV 10,000 unit UMA PRN Administration hemoglobin less than 10 Famotidine 20 mg 11/14/18 10:00 11/18/18 09:14 Pepcid PO 20 mg DAILY SANCHEZ Administration Folic Acid 1 mg 11/14/18 10:00 11/18/18 09:13 Folvite PO 1 mg DAILY SANCHEZ Administration Gabapentin 100 mg 11/13/18 22:00 11/18/18 21:37 Neurontin PO 100 mg QHS [facility] Administration Heparin Sodium (Porcine) 5,000 unit 11/13/18 22:00 11/18/18 21:37 Heparin SUB-Q 5,000 unit Q12HR SANCHEZ Administration Hydralazine HCl 25 mg 11/13/18 22:00 11/19/18 06:13 Apresoline PO 25 mg Q8HR SANCHEZ Administration Hydrocortisone Sodium Succinate 50 mg 11/19/18 10:00 Solu-Cortef IV 11/19/18 22:01 Q12HR SANCHEZ Hydrocortisone Sodium Succinate 50 mg 11/20/18 10:00 Solu-Cortef IV 11/20/18 10:01 DAILY [facility] Insulin Human Lispro 0 unit 11/17/18 11:30 11/19/18 00:00 Humalog SUB-Q Not Given ACHS [facility] Protocol Ondansetron HCl 4 mg 11/13/18 21:14 Zofran IV Q8H PRN Nausea And Vomiting Polyethylene Glycol 17 gm 11/14/18 10:00 11/18/18 09:14 Miralax 3350 PO 17 gm QDAY SANCHEZ Administration Simple Syrup 15 ml 11/15/18 08:07 Simple Syrup FEEDTUBE PRN PRN Hypoglycemia Simple Syrup 30 ml 11/15/18 08:07 Simple Syrup FEEDTUBE PRN PRN Hypoglycemia Sodium Bicarbonate 325 mg 11/15/18 08:07 Sodium Bicarbonate FEEDTUBE PRN PRN For Clogged Feeding Tube Sodium Chloride 10 ml 11/13/18 22:00 11/18/18 21:35 Sodium Chloride Flush Syringe 10 Ml IV 10 ml BID SANCHEZ Administration Sodium Chloride 10 ml 11/13/18 21:14 Sodium Chloride Flush Syringe 10 Ml IV PRN PRN LINE FLUSH
[2018-11-19] MEDS: SODIUM CHLORIDE FLUSH SYRINGE 10 ML IV SCH (09:47)
[2018-11-19] MEDS: HEPARIN SUB-Q SCH (09:49)
--- NOTE | 2018-11-19 09:50 | Progress Note ---
Assessment and Plan Pt in AFib with CVR. Pt appears to be a poor candidate for long-term OAC in setting of mental status and multiple co-morbidities. Currently stable cardiac status. Cont present cardiac regimen. Nothing further to add from cardiac perspective at this time. Will sign off. Recommend follow up in our office with Dr. Woodall within 1-2 weeks of hospital discharge ([phone]). The patient has been seen in conjunction with Dr. Bullock who agrees with the assessment and plan of care. - Patient Problems (1) Atrial fibrillation with slow ventricular response Current Visit: Yes Status: Acute (2) History of loop recorder Current Visit: Yes Status: Acute (3) Sepsis Current Visit: Yes Status: Suspected Qualifiers: Sepsis type: sepsis due to unspecified organism Qualified Code(s): A41.9 - Sepsis, unspecified organism (4) Hypotension Current Visit: Yes Status: Resolved Qualifiers: Hypotension type: hemodialysis-associated hypotension Qualified Code(s): I95.3 - Hypotension of hemodialysis (5) Hypothermia Current Visit: Yes Status: Acute (6) Diabetes mellitus Current Visit: Yes Status: Chronic (7) End stage renal disease Current Visit: Yes Status: Chronic (8) History of CVA (cerebrovascular accident) Current Visit: Yes Status: Chronic (9) Legally blind Current Visit: Yes Status: Chronic (10) Anemia Current Visit: Yes Status: Chronic Qualifiers: Anemia type: iron deficiency Subjective Date of service: 11/19/18 Principal diagnosis: Hypotension, hypothermia, bradycardia, perm AF, ESRD, DM, Anemia Interval history: pt resting in bed, nonverbal, withdrawn. no family at bedside. Objective Last Vital Signs Temp 97.6 F 11/19/18 06:07 Pulse 86 11/19/18 06:07 Resp 20 11/19/18 06:07 BP 158/73 11/19/18 06:07 Pulse Ox 100 11/19/18 06:07 - Physical Examination General: Other (withdrawn, nonverbal) HEENT: Positive: EOMI, Normocephaly, Mucus Membranes Moist Neck: Positive: neck supple, trachea midline Cardiac: Positive: irregularly irregular, S1/S2 Lungs: Positive: Decreased Breath Sounds Neuro: Positive: Other (withdrawn) Abdomen: Positive: Soft, Active Bowel Sounds. Negative: Tender Skin: Positive: Clear Musculoskeletal: Normal Range of Motion Extremities: Present: warm. Absent: edema - Labs and Meds Comprehensive Metabolic Panel 11/19/18 Range/Units 07:50 Sodium 135 L (137-145) mmol/L Potassium 3.7 D (3.6-5.0) mmol/L Chloride 99.0 (98-107) mmol/L Carbon Dioxide 26 (22-30) mmol/L BUN 29 H (9-20) mg/dL Creatinine 4.0 H (0.8-1.5) mg/dL Glucose 105 H (75-100) mg/dL Calcium 9.3 (8.4-10.2) mg/dL - Imaging and Cardiology Stress echo: report reviewed (MPI 04/30: Moderate sized fixed inferior wall perfusion defect of moderate severity, moderate size reversible apical defect) Echo: report reviewed (echo 03/08: Mild to moderate LVH, EF 40-45%,)
[2018-11-19] MEDS: COLACE PO SCH (09:54)
[2018-11-19] MEDS: FOLVITE PO SCH (09:55)
[2018-11-19] MEDS: PEPCID PO SCH (09:55)
[2018-11-19] MEDS: HALFPRIN EC PO SCH (09:55)
[2018-11-19] MEDS: MIRALAX 3350 PO SCH (09:55)
== END 2018-11-19 13:30 | DRG 871 ==
LOC: ED 10:45 → EEVIPCON 10:45 → IMCU 21:15 → CC1 11-14 00:22 → IMCU 11-17 19:24 → 3A 11-18 15:42
PROVIDERS: ADMIT Internal Medicine; ATTEND Internal Medicine
PROC: 30233N1 Transfusion of Nonautologous Red Blood Cells into Peripheral Vein, Percutaneous Approach (ICD-10-PCS; principal; 2018-11-15)
PROC: 5A1D70Z Performance of Urinary Filtration, Intermittent, Less than 6 Hours Per Day (ICD-10-PCS; 2018-11-15)
PROC: 5A1D70Z Performance of Urinary Filtration, Intermittent, Less than 6 Hours Per Day (ICD-10-PCS; 2018-11-18)
DX: R57.1 Hypovolemic shock (principal); N18.6 End stage renal disease; E43 Unspecified severe protein-calorie malnutrition; I13.2 Hypertensive heart and chronic kidney disease with heart failure and with stage 5 chronic kidney disease, or end stage renal disease; E87.1 Hypo-osmolality and hyponatremia; J81.1 Chronic pulmonary edema; I50.9 Heart failure, unspecified; I95.3 Hypotension of hemodialysis; K21.9 Gastro-esophageal reflux disease without esophagitis; E87.70 Fluid overload, unspecified; D63.1 Anemia in chronic kidney disease; D50.9 Iron deficiency anemia, unspecified; E11.40 Type 2 diabetes mellitus with diabetic neuropathy, unspecified; L89.159 Pressure ulcer of sacral region, unspecified stage; T68.XXXA Hypothermia, initial encounter; R00.1 Bradycardia, unspecified; E78.5 Hyperlipidemia, unspecified; I48.2 Chronic atrial fibrillation; I25.10 Atherosclerotic heart disease of native coronary artery without angina pectoris; F20.9 Schizophrenia, unspecified; L97.529 Non-pressure chronic ulcer of other part of left foot with unspecified severity; E11.22 Type 2 diabetes mellitus with diabetic chronic kidney disease; I48.91 Unspecified atrial fibrillation; H54.8 Legal blindness, as defined in USA; Z95.810 Presence of automatic (implantable) cardiac defibrillator; Z90.49 Acquired absence of other specified parts of digestive tract; Z68.33 Body mass index [BMI] 33.0-33.9, adult; Z86.73 Personal history of transient ischemic attack (TIA), and cerebral infarction without residual deficits; Z88.8 Allergy status to other drugs, medicaments and biological substances
CPT/HCPCS: 36415; 36430; 71045; 74018; 80048; 80053; 82607; 82747; 82962; 83036; 83550; 84439; 84443; 85007; 85025; 85027; 85610; 85730; 86850; 86900; 86901; 86920; 87040; 87116; 94760; 96374; G0378; J0692; J0885; J1170; J1644; J1720; J1815; J2916; J3370; J7030; J7040; P9016

== ENCOUNTER 2018-12-15 12:29 | Inpatient (IN) | payer MEDICARE ==
--- NOTE | 2018-12-15 13:24 | Emergency Department Report ---
ED General Adult HPI - General Chief complaint: Altered Mental Status Stated complaint: AMS Time Seen by Provider: 12/15/18 13:10 Source: EMS (ems notes not available at time of chart dictation), RN notes reviewed, old records reviewed Mode of arrival: Stretcher Limitations: Altered Mental Status, Physical Limitation - History of Present Illness Initial comments: This is a 63-year-old gentleman. The patient has a past medical history of end-stage renal disease, on dialysis, Saturday, , Saturday, hypertension, heart disease status post CABG, stroke, diabetes, A. fib, anemia, hyperparathyroidism, hypocalcemia, COPD, schizophrenia, CHF. He essentially emergency room for evaluation of altered mental status and weakness. His primary care doctor at the senior living appears to be Dr. Rubin Smith. Initially upon arrival, the patient is altered and sleepy. He is not accompanied by any friends or family. The patient is not able to agustina cribe exacerbating or relieving factors, qualitative nature of his symptoms, or radiation. As per review of old medical records, during a recent discharge evaluation, he was found to be alert and oriented 1. While in the emergency room, the patient became more alert. He would follow some commands. He was able to tell the nurse caring for him his name, and the fact that he knew that he was in the hospital. He was unable to comment on physical pain. -: unknown Radiation: other Quality: other Consistency: other Improves with: other Worsens with: other Associated Symptoms: other - Related Data Home Medications Medication Instructions Recorded Confirmed Last Taken risperiDONE [RisperDAL] 1 mg PO QAM 03/13/18 12/04/18 Unknown Sertraline [Zoloft] 100 mg PO QDAY 08/26/18 12/04/18 Unknown risperiDONE [RisperDAL] 0.5 mg PO HS 08/26/18 12/04/18 Unknown Previous Rx's Medication Instructions Recorded Last Taken Type Polyethylene Glycol 3350 [Miralax 17 gm PO QDAY #30 packet 11/05/18 Unknown Rx 3350] Acetaminophen [Acetaminophen TAB] 650 mg PO Q4H PRN #15 tablet 11/19/18 Unknown Rx Aspirin EC 81 mg PO DAILY #30 11/19/18 Unknown Rx Docusate Sodium [Colace CAP] 100 mg PO BID #60 11/19/18 Unknown Rx Epoetin Solitario 10,000 Unit [Procrit] 10,000 unit IV UMA PRN #1 vial 11/19/18 Unknown Rx Folic Acid [Folvite] 1 mg PO DAILY #30 tab 11/19/18 Unknown Rx Lipase/Protease/Amylase [Pancreaze 1 each FEEDTUBE PRN PRN #30 capsule 11/19/18 Unknown Rx 10,500 Unit] Sodium Bicarbonate 325 mg FEEDTUBE PRN PRN #30 tablet 11/19/18 Unknown Rx Famotidine [Pepcid] 20 mg PO DAILY tablet 12/08/18 Unknown Rx Gabapentin [Neurontin] 100 mg PO QHS capsule 12/08/18 Unknown Rx Metoprolol [Lopressor TAB] 50 mg PO BID 30 Days tablet 12/08/18 Unknown Rx Sevelamer Carbonate [Renvela] 800 mg PO TIDWM tablet 12/08/18 Unknown Rx hydrALAZINE [Apresoline TAB] 100 mg PO Q8HR #120 tablet 12/08/18 Unknown Rx Allergies Allergy/AdvReac Type Severity Reaction Status Date / Time haloperidol [From Haldol] AdvReac Unknown Verified 03/13/18 12:10 haloperidol lactate AdvReac Unknown Verified 03/13/18 12:10 [From Haldol] ED Review of Systems ROS: Stated complaint: AMS Other details as noted in HPI Comment: Unobtainable due to pts medical conditions Neurological: confusion ED Past Medical Hx - Past Medical History Hx Hypertension: Yes Hx CVA: Yes Hx Heart Attack/AMI: No Hx Congestive Heart Failure: Yes Hx Diabetes: Yes Hx Renal Disease: Yes (TTS dialysis (Dr. Layne)) Hx Asthma: No Hx COPD: Yes Hx Dementia: Yes Hx HIV: No Additional medical history: A. FIB; Legally Blind. Iron-deficiency Anemia. Hyperparathyroidism. Hypocalcemia. renal osteodystrophy - Surgical History Hx Open Heart Surgery: Yes (CABBAGE) Hx Pacemaker: Yes (defibrillator) Hx Internal Defibrillator: Yes Hx Appendectomy: Yes Additional Surgical History: AV fistula in the left upper extremity, hemorrhoidectomy - Social History Smoking Status: Never Smoker - Medications Home Medications: Home Medications Medication Instructions Recorded Confirmed Last Taken Type risperiDONE [RisperDAL] 1 mg PO QAM 03/13/18 12/04/18 Unknown History Sertraline [Zoloft] 100 mg PO QDAY 08/26/18 12/04/18 Unknown History risperiDONE [RisperDAL] 0.5 mg PO HS 08/26/18 12/04/18 Unknown History Polyethylene Glycol 3350 [Miralax 17 gm PO QDAY #30 packet 11/05/18 12/04/18 Unknown Rx 3350] Acetaminophen [Acetaminophen TAB] 650 mg PO Q4H PRN #15 tablet 11/19/18 12/04/18 Unknown Rx Aspirin EC 81 mg PO DAILY #30 11/19/18 12/04/18 Unknown Rx Docusate Sodium [Colace CAP] 100 mg PO BID #60 11/19/18 12/04/18 Unknown Rx Epoetin Solitario 10,000 Unit [Procrit] 10,000 unit IV UMA PRN #1 vial 11/19/18 12/04/18 Unknown Rx Folic Acid [Folvite] 1 mg PO DAILY #30 tab 11/19/18 12/04/18 Unknown Rx Lipase/Protease/Amylase [Pancreaze 1 each FEEDTUBE PRN PRN #30 capsule 11/19/18 12/04/[address] 10,500 Unit] Sodium Bicarbonate 325 mg FEEDTUBE PRN PRN #30 tablet 11/19/18 12/04/18 Unknown Rx Famotidine [Pepcid] 20 mg PO DAILY tablet 12/08/18 Unknown Rx Gabapentin [Neurontin] 100 mg PO QHS capsule 12/08/18 Unknown Rx Metoprolol [Lopressor TAB] 50 mg PO BID 30 Days tablet 12/08/18 Unknown Rx Sevelamer Carbonate [Renvela] 800 mg PO TIDWM tablet 12/08/18 Unknown Rx hydrALAZINE [Apresoline TAB] 100 mg PO Q8HR #120 tablet 12/08/18 Unknown Rx ED Physical Exam - General Limitations: Altered Mental Status, Physical Limitation General appearance: lethargic - Head Head exam: Present: atraumatic, normocephalic - Eye Eye exam: Present: other. Absent: normal appearance (there is a right-sided ocular prosthesis noted. Left-sided extraocular movements appear to be intact) - ENT ENT exam: Present: mucous membranes dry - Neck Neck exam: Absent: tenderness, meningismus - Respiratory Respiratory exam: Present: rales (very faint rhonchi noted in the lower lung bases) - Cardiovascular Cardiovascular Exam: Present: regular rate, normal rhythm, normal heart sounds. Absent: bradycardia, tachycardia, irregular rhythm - GI/Abdominal GI/Abdominal exam: Present: soft. Absent: distended, tenderness, guarding, rebound, rigid, normal bowel sounds, pulsatile mass - Rectal Rectal exam: Present: other (chronic-appearing wounds noted.). Absent: normal inspection - exam: Present: normal inspection - Extremities Exam Extremities exam: Present: pedal edema, other (his left upper extremity edema noted. Left upper extremity dialysis axis noted, with no redness, pus or streaking.) - Back Exam Back exam: Present: normal inspection. Absent: CVA tenderness (R), paraspinal tenderness - Neurological Exam Neurological exam: Present: altered, other (detailed neurologic examination not performed secondary to altered mental status.The patient initially is confused and lethargic. He will respond in response to painful stimuli.He moves his upper and lower extremities spontaneously later on throughout his emergency room course.) - Psychiatric Psychiatric exam: Present: other (patient is minimally verbal) - Skin Skin exam: Present: dry ED Course Vital Signs 12/15/18 12/15/18 12/15/18 12:57 14:59 15:01 Temperature 99.4 F Pulse Rate 99 H 128 H 130 H Respiratory 18 12 13 Rate Blood Pressure Blood Pressure 155/83 [Right] O2 Sat by Pulse 100 93 92 Oximetry 12/15/18 12/15/18 12/15/18 15:09 15:15 15:31 Temperature Pulse Rate 120 H 122 H 115 H Respiratory 9 L 10 L Rate Blood Pressure 181/100 181/100 Blood Pressure 181/100 [Right] O2 Sat by Pulse 92 95 Oximetry 12/15/18 12/15/18 12/15/18 15:45 16:01 16:17 Temperature Pulse Rate 107 H 101 H 101 H Respiratory 8 L 12 10 L Rate Blood Pressure 181/100 181/100 181/100 Blood Pressure [Right] O2 Sat by Pulse 100 100 Oximetry 12/15/18 12/15/18 16:30 16:45 Temperature Pulse Rate 100 H 100 H Respiratory 11 L 9 L Rate Blood Pressure 163/93 162/93 Blood Pressure [Right] O2 Sat by Pulse 100 100 Oximetry - Reevaluation(s) Reevaluation #1: 12/15/18 15:50 Differential diagnosis, including that limited to: Vascular dementia, obesity hypoventilation syndrome, obstructive sleep apnea, congestive heart failure, pneumonia, urinary tract infection, uremia, azotemia Assessment and plan: 63-year-old gentleman with numerous chronic medical conditions. He initially arrives very sleepy. He is now more awake. He does not appear to be in any acute distress. Laboratory studies appear to be at baseline. Do not clinically suspect sepsis or bacteremic illness based off of lack of fever and other objective studies. The patient on previous history and physicals has been documented to be alert and oriented 1. His exam today now appears to be back to baseline when compared to prior examinations. I suspect the patient is experiencing the natural history of his multiple chronic medical conditions. Assessment with covering nephrology, Dr. Pierre We will give the patient 80 mg of Lasix IV. A noncontrast CT scan of the brain is pending at this time. Patient resting comfortably, in no acute distress. Reevaluation #2: 12/15/18 17:23 CT scan of the brain is negative for acute disease. Tachycardia improved. Patient having fluctuations in respiratory rate. At times he seems to become more sleepy, and dropped his O2 sat, as well as respiratory rate. He will be admitted to the medical service for airway observation. Dr Alarcon to admit ED Medical Decision Making - Lab Data Result diagrams: 12/15/18 13:31 12/15/18 13:31 Vital Signs 12/15/18 12/15/18 12:57 15:09 Temperature 99.4 F Pulse Rate 99 H 120 H Respiratory 18 Rate Blood Pressure 155/83 181/100 [Right] O2 Sat by Pulse 100 Oximetry Lab Results 12/15/18 12/15/18 12/15/18 Range/Units 13:31 13:31 13:31 WBC 5.2 (4.5-11.0) K/mm3 RBC 3.85 (3.65-5.03) M/mm3 Hgb 9.8 L (11.8-15.2) gm/dl Hct 31.8 L (35.5-45.6) % MCV 83 L (84-94) fl MCH 25 L (28-32) pg MCHC 31 L (32-34) % RDW 21.9 H (13.2-15.2) % Plt Count 180 (140-440) K/mm3 Add Manual Diff Complete Total Counted 100 Seg Neuts % (Manual) 85.0 H (40.0-70.0) % Band Neutrophils % 0 % Lymphocytes % (Manual) 10.0 L (13.4-35.0) % Reactive Lymphs % (Man) 0 % Monocytes % (Manual) 3.0 (0.0-7.3) % Eosinophils % (Manual) 1.0 (0.0-4.3) % Basophils % (Manual) 1.0 (0.0-1.8) % Metamyelocytes % 0 % Myelocytes % 0 % Promyelocytes % 0 % Blast Cells % 0 % Nucleated RBC % Not Reportable Seg Neutrophils # Man 4.4 (1.8-7.7) K/mm3 Band Neutrophils # 0.0 K/mm3 Lymphocytes # (Manual) 0.5 L (1.2-5.4) K/mm3 Abs React Lymphs (Man) 0.0 K/mm3 Monocytes # (Manual) 0.2 (0.0-0.8) K/mm3 Eosinophils # (Manual) 0.1 (0.0-0.4) K/mm3 Basophils # (Manual) 0.1 (0.0-0.1) K/mm3 Metamyelocytes # 0.0 K/mm3 Myelocytes # 0.0 K/mm3 Promyelocytes # 0.0 K/mm3 Blast Cells # 0.0 K/mm3 WBC Morphology Not Reportable Hypersegmented Neuts Not Reportable Hyposegmented Neuts Not Reportable Hypogranular Neuts Not Reportable Smudge Cells Not Reportable Toxic Granulation Not Reportable Toxic Vacuolation Not Reportable Dohle Bodies Not Reportable Pelger-Huet Anomaly Not Reportable Tramaine Rods Not Reportable Platelet Estimate Consistent w auto Clumped Platelets Not Reportable Plt Clumps, EDTA Not Reportable Large Platelets Not Reportable Giant Platelets Not Reportable Platelet Satelliting Not Reportable Plt Morphology Comment Not Reportable RBC Morphology Not Reportable Dimorphic RBCs Not Reportable Polychromasia Not Reportable Hypochromasia 1+ Poikilocytosis 1+ Anisocytosis 1+ Microcytosis Not Reportable Macrocytosis Not Reportable Spherocytes Not Reportable Pappenheimer Bodies Not Reportable Sickle Cells Not Reportable Target Cells Few Tear Drop Cells Not Reportable Ovalocytes Few Helmet Cells Not Reportable Zhou-[place] Bodies Not Reportable Indialantic Rings Not Reportable [place] Cells Not Reportable Bite Cells Not Reportable Crenated Cell Not Reportable Elliptocytes Few Acanthocytes (Spur) Not Reportable Rouleaux Not Reportable Hemoglobin C Crystals Not Reportable Schistocytes Not Reportable Malaria parasites Not Reportable Jose Juan Bodies Not Reportable Hem Pathologist Commnt No Sodium 137 (137-145) mmol/L Potassium 3.1 L (3.6-5.0) mmol/L Chloride 96.7 L (98-107) mmol/L Carbon Dioxide 27 (22-30) mmol/L Anion Gap 16 mmol/L BUN 32 H (9-20) mg/dL Creatinine 4.1 H (0.8-1.5) mg/dL Estimated GFR 18 ml/min BUN/Creatinine Ratio 8 % Glucose 89 (75-100) mg/dL POC Glucose (70-105) Lactic Acid 0.80 (0.7-2.0) mmol/L Calcium 10.2 (8.4-10.2) mg/dL Magnesium (1.7-2.3) mg/dL Ammonia (25-60) umol/L Total Creatine Kinase (55-170) units/L TSH (0.270-4.200) mlU/mL Salicylates (2.8-20.0) mg/dL Acetaminophen (10.0-30.0) ug/mL Plasma/Serum Alcohol (0-0.07) % 12/15/18 12/15/18 12/15/18 Range/Units 13:32 13:37 13:37 WBC (4.5-11.0) K/mm3 RBC (3.65-5.03) M/mm3 Hgb (11.8-15.2) gm/dl Hct (35.5-45.6) % MCV (84-94) fl MCH (28-32) pg MCHC (32-34) % RDW (13.2-15.2) % Plt Count (140-440) K/mm3 Add Manual Diff Total Counted Seg Neuts % (Manual) (40.0-70.0) % Band Neutrophils % % Lymphocytes % (Manual) (13.4-35.0) % Reactive Lymphs % (Man) % Monocytes % (Manual) (0.0-7.3) % Eosinophils % (Manual) (0.0-4.3) % Basophils % (Manual) (0.0-1.8) % Metamyelocytes % % Myelocytes % % Promyelocytes % % Blast Cells % % Nucleated RBC % Seg Neutrophils # Man (1.8-7.7) K/mm3 Band Neutrophils # K/mm3 Lymphocytes # (Manual) (1.2-5.4) K/mm3 Abs React Lymphs (Man) K/mm3 Monocytes # (Manual) (0.0-0.8) K/mm3 Eosinophils # (Manual) (0.0-0.4) K/mm3 Basophils # (Manual) (0.0-0.1) K/mm3 Metamyelocytes # K/mm3 Myelocytes # K/mm3 Promyelocytes # K/mm3 Blast Cells # K/mm3 WBC Morphology Hypersegmented Neuts Hyposegmented Neuts Hypogranular Neuts Smudge Cells Toxic Granulation Toxic Vacuolation Dohle Bodies Pelger-Huet Anomaly Tramaine Rods Platelet Estimate Clumped Platelets Plt Clumps, EDTA Large Platelets Giant Platelets Platelet Satelliting Plt Morphology Comment RBC Morphology Dimorphic RBCs Polychromasia Hypochromasia Poikilocytosis Anisocytosis Microcytosis Macrocytosis Spherocytes Pappenheimer Bodies Sickle Cells Target Cells Tear Drop Cells Ovalocytes Helmet Cells Zhou-[place] Bodies Indialantic Rings Hebert Cells Bite Cells Crenated Cell Elliptocytes Acanthocytes (Spur) Rouleaux Hemoglobin C Crystals Schistocytes Malaria parasites Jose Juan Bodies Hem Pathologist Commnt Sodium (137-145) mmol/L Potassium (3.6-5.0) mmol/L Chloride (98-107) mmol/L Carbon Dioxide (22-30) mmol/L Anion Gap mmol/L BUN (9-20) mg/dL Creatinine (0.8-1.5) mg/dL Estimated GFR ml/min BUN/Creatinine Ratio % Glucose (75-100) mg/dL POC Glucose 77 (70-105) Lactic Acid (0.7-2.0) mmol/L Calcium (8.4-10.2) mg/dL Magnesium 2.00 (1.7-2.3) mg/dL Ammonia 42.0 (25-60) umol/L Total Creatine Kinase 17 L (55-170) units/L TSH (0.270-4.200) mlU/mL Salicylates (2.8-20.0) mg/dL Acetaminophen (10.0-30.0) ug/mL Plasma/Serum Alcohol (0-0.07) % 12/15/18 12/15/18 12/15/18 Range/Units 13:37 13:37 13:37 WBC (4.5-11.0) K/mm3 RBC (3.65-5.03) M/mm3 Hgb (11.8-15.2) gm/dl Hct (35.5-45.6) % MCV (84-94) fl MCH (28-32) pg MCHC (32-34) % RDW (13.2-15.2) % Plt Count (140-440) K/mm3 Add Manual Diff Total Counted Seg Neuts % (Manual) (40.0-70.0) % Band Neutrophils % % Lymphocytes % (Manual) (13.4-35.0) % Reactive Lymphs % (Man) % Monocytes % (Manual) (0.0-7.3) % Eosinophils % (Manual) (0.0-4.3) % Basophils % (Manual) (0.0-1.8) % Metamyelocytes % % Myelocytes % % Promyelocytes % % Blast Cells % % Nucleated RBC % Seg Neutrophils # Man (1.8-7.7) K/mm3 Band Neutrophils # K/mm3 Lymphocytes # (Manual) (1.2-5.4) K/mm3 Abs React Lymphs (Man) K/mm3 Monocytes # (Manual) (0.0-0.8) K/mm3 Eosinophils # (Manual) (0.0-0.4) K/mm3 Basophils # (Manual) (0.0-0.1) K/mm3 Metamyelocytes # K/mm3 Myelocytes # K/mm3 Promyelocytes # K/mm3 Blast Cells # K/mm3 WBC Morphology Hypersegmented Neuts Hyposegmented Neuts Hypogranular Neuts Smudge Cells Toxic Granulation Toxic Vacuolation Dohle Bodies Pelger-Huet Anomaly Tramaine Rods Platelet Estimate Clumped Platelets Plt Clumps, EDTA Large Platelets Giant Platelets Platelet Satelliting Plt Morphology Comment RBC Morphology Dimorphic RBCs Polychromasia Hypochromasia Poikilocytosis Anisocytosis Microcytosis Macrocytosis Spherocytes Pappenheimer Bodies Sickle Cells Target Cells Tear Drop Cells Ovalocytes Helmet Cells Zhou-[place] Bodies Indialantic Rings Hebert Cells Bite Cells Crenated Cell Elliptocytes Acanthocytes (Spur) Rouleaux Hemoglobin C Crystals Schistocytes Malaria parasites Jose Juan Bodies Hem Pathologist Commnt Sodium (137-145) mmol/L Potassium (3.6-5.0) mmol/L Chloride (98-107) mmol/L Carbon Dioxide (22-30) mmol/L Anion Gap mmol/L BUN (9-20) mg/dL Creatinine (0.8-1.5) mg/dL Estimated GFR ml/min BUN/Creatinine Ratio % Glucose (75-100) mg/dL POC Glucose (70-105) Lactic Acid (0.7-2.0) mmol/L Calcium (8.4-10.2) mg/dL Magnesium (1.7-2.3) mg/dL Ammonia (25-60) umol/L Total Creatine Kinase (55-170) units/L TSH 2.780 (0.270-4.200) mlU/mL Salicylates < 0.3 L (2.8-20.0) mg/dL Acetaminophen < 5.0 L (10.0-30.0) ug/mL Plasma/Serum Alcohol (0-0.07) % 12/15/ Range/Units 13:37 WBC (4.5-11.0) K/mm3 RBC (3.65-5.03) M/mm3 Hgb (11.8-15.2) gm/dl Hct (35.5-45.6) % MCV (84-94) fl MCH (28-32) pg MCHC (32-34) % RDW (13.2-15.2) % Plt Count (140-440) K/mm3 Add Manual Diff Total Counted Seg Neuts % (Manual) (40.0-70.0) % Band Neutrophils % % Lymphocytes % (Manual) (13.4-35.0) % Reactive Lymphs % (Man) % Monocytes % (Manual) (0.0-7.3) % Eosinophils % (Manual) (0.0-4.3) % Basophils % (Manual) (0.0-1.8) % Metamyelocytes % % Myelocytes % % Promyelocytes % % Blast Cells % % Nucleated RBC % Seg Neutrophils # Man (1.8-7.7) K/mm3 Band Neutrophils # K/mm3 Lymphocytes # (Manual) (1.2-5.4) K/mm3 Abs React Lymphs (Man) K/mm3 Monocytes # (Manual) (0.0-0.8) K/mm3 Eosinophils # (Manual) (0.0-0.4) K/mm3 Basophils # (Manual) (0.0-0.1) K/mm3 Metamyelocytes # K/mm3 Myelocytes # K/mm3 Promyelocytes # K/mm3 Blast Cells # K/mm3 WBC Morphology Hypersegmented Neuts Hyposegmented Neuts Hypogranular Neuts Smudge Cells Toxic Granulation Toxic Vacuolation Dohle Bodies Pelger-Huet Anomaly Tramaine Rods Platelet Estimate Clumped Platelets Plt Clumps, EDTA Large Platelets Giant Platelets Platelet Satelliting Plt Morphology Comment RBC Morphology Dimorphic RBCs Polychromasia Hypochromasia Poikilocytosis Anisocytosis Microcytosis Macrocytosis Spherocytes Pappenheimer Bodies Sickle Cells Target Cells Tear Drop Cells Ovalocytes Helmet Cells Zhou-[place] Bodies Indialantic Rings Hebert Cells Bite Cells Crenated Cell Elliptocytes Acanthocytes (Spur) Rouleaux Hemoglobin C Crystals Schistocytes Malaria parasites Jose Juan Bodies Hem Pathologist Commnt Sodium (137-145) mmol/L Potassium (3.6-5.0) mmol/L Chloride (98-107) mmol/L Carbon Dioxide (22-30) mmol/L Anion Gap mmol/L BUN (9-20) mg/dL Creatinine (0.8-1.5) mg/dL Estimated GFR ml/min BUN/Creatinine Ratio % Glucose (75-100) mg/dL POC Glucose (70-105) Lactic Acid (0.7-2.0) mmol/L Calcium (8.4-10.2) mg/dL Magnesium (1.7-2.3) mg/dL Ammonia (25-60) umol/L Total Creatine Kinase (55-170) units/L TSH (0.270-4.200) mlU/mL Salicylates (2.8-20.0) mg/dL Acetaminophen (10.0-30.0) ug/mL Plasma/Serum Alcohol < 0.01 (0-0.07) % - EKG Data -: EKG Interpreted by Me - EKG Data 12/15/18 15:47 This is a normal sinus rhythm, normal axis, QTC prolonged, poor R progression, borderline atrial enlargement. There is minimal motion artifact noted. 12/15/18 15:52 EKG today appears to be morphologically unchanged with a prior EKG from 12/04/2018. - Radiology Data Radiology results: report reviewed, image reviewed Print Report Referring Physician: NAVIN OCASIO Patient Name: LUCITA PARSONS Date of : 1955 Sex: Male Report Date: 2018-12-04 Report Status: Finalized Findings [facility] [address] [place] [address] XRay Report Signed Patient: LUCITA PARSONS MR#: [id number] 59 : 1955 Acct:[id number] Age/Sex: 63 / M ADM Date: 12/04/18 Loc: ED Attending Dr: Ordering Physician: NAVIN OCASIO MD Date of Service: 12/04/18 Procedure(s): XR chest 1V ap Accession Number(s): [id number] cc: NAVIN OCASIO MD Fluoro Time In Minutes: AP CHEST: HISTORY: Short of breath, cough Right IJ dialysis catheter remains in good position. Mild cardiomegaly and pulmonary venous congestion are stable. Mild increase in a small right pleural effusion is demonstrated since 11/14/18 exam. No consolidation or pneumothorax. IMPRESSION: Mild volume overload. Transcribed By: TTR Dictated By: CHAR ZENG JR, MD Electronically Authenticated By: CHAR ZENG JR, MD Signed Date/Time: 12/04/18 1200 Critical care attestation.: If time is entered above; I have spent that time in minutes in the direct care of this critically ill patient, excluding procedure time. ED Disposition Clinical Impression: End stage renal disease on dialysis, Legally blind, Encephalopathy Disposition: -09 OP ADMIT IP TO THIS HOSP Is pt being admited?: Yes Condition: Fair Referrals: RUBIN SMITH MD [Primary Care Provider] - 3-5 Days
[2018-12-15 13:56] LABS: Hematocrit 31.8 % (35.5-45.6); Hemoglobin 9.8 gm/dl (11.8-15.2); Mean Corpuscular HGB Conc 31 % (32-34); Mean Corpuscular Volume 83 fl (84-94); Platelet Count 180 K/mm3 (140-440); Red Blood Count 3.85 M/mm3 (3.65-5.03)
[2018-12-15 13:57] LABS: Red Cell Distribution Width 21.9 % (13.2-15.2)
--- NOTE | 2018-12-15 14:02 | XRay Report ---
AP CHEST: HISTORY: Altered mental status Mild improvement in cardiomegaly, pulmonary venous congestion and small pleural effusions is demonstrated since 12/04/18. No evidence for pneumonia or pneumothorax. Right venous catheter remains in good position. IMPRESSION: Mild cardiomegaly and pulmonary venous congestion. No CHF.
[2018-12-15 14:09] LABS: Calcium 10.2 mg/dL (8.4-10.2)
[2018-12-15 14:40] LABS: Anisocytosis 1+; Hypochromasia 1+; Poikilocytosis 1+; Total Cells Counted 100
[2018-12-15 14:43] LABS: Ovalocytes Few; Platelet Estimate Consistent w Auto; Target Cells Few
[2018-12-15 15:34] LABS: Bilirubin,Urine NEG (Negative); Blood,Urine NEG (Negative); Color,Urine Yellow (Yellow); RBC,Urine < 1.0 /HPF (0.0-6.0); Urobilinogen,Urine < 2.0 mg/dL (<2.0)
[2018-12-15 15:35] LABS: WBC,Urine < 1.0 /HPF (0.0-6.0)
[2018-12-15] MEDS ORDERED: LASIX IV ONE (15:49)
--- NOTE | 2018-12-15 16:43 | Cat Scan Report ---
PROCEDURE: CT HEAD/BRAIN WO CON TECHNIQUE: Computerized tomography of the head was performed without contrast material. CT DOSE LENGTH PRODUCT: 2186.5 mGycm HISTORY: AMS COMPARISONS: Prior CT scan of the brain 10/29/2018 . FINDINGS: Brain: There is no evidence of intracranial hemorrhage. No parenchymal hemorrhage is seen. No mass lesions or mass effect is identified. No abnormal extra-axial fluid collections or masses are seen. Accounting for differences in positioning the patient's head in the CT scanner: There is a moderate-s ized old area of encephalomalacia in the left cerebellar hemisphere. This is unchanged. There is a mo derate-sized area of encephalomalacia again visualized left frontal temporal region unchanged from th e last study. Small to moderate-sized old area of encephalomalacia again visualized right frontal par ietal region. There is some decreased density seen in the periventricular white matter without mass effect. This i s fairly symmetric and does not exhibit any mass effect consistent with gliosis probably on the basis of microvascular disease or white matter changes of aging. Ventricles: The ventricles, sulcal pattern and fissures are prominent consistent with atrophy. Bone Windows: No evidence of fracture. Paranasal sinuses: Clear. Mastoid air cells: Clear. Prosthetic globe visualized in the right orbit. IMPRESSION: No acute intracranial abnormalities are identified when accounting for differences in positioning. Ol d areas of encephalomalacia appear to be present as described above. There is also evidence of atroph y and gliosis. If clinically indicated MRI of the brain could be obtained for further evaluation. Prosthetic globe visualized within the right orbit. This was seen on the prior study. This document is electronically signed by Marino Alonzo MD., Dec 15 2018 04:41:40 PM ET
[2018-12-15] MEDS ORDERED: NACL 0.9% 100 ML IV PRN (17:56)
[2018-12-15] MEDS ORDERED: TYLENOL PO PRN ×2 (19:03→19:07)
[2018-12-15] MEDS ORDERED: SODIUM CHLORIDE FLUSH SYRINGE 10 ML IV PRN (19:07)
[2018-12-15] MEDS ORDERED: PERCOCET 5/325 PO PRN (19:07)
[2018-12-15] MEDS ORDERED: ZOFRAN IV PRN (19:07)
[2018-12-15] MEDS ORDERED: MS CONTIN ER PO ONE (19:49)
[2018-12-15] MEDS: MS CONTIN ER PO SCH (20:05)
[2018-12-15] MEDS ORDERED: NON-FORMULARY (Risperidone [Risperdal] 0.5 MG) PO SCH (22:00)
[2018-12-15] MEDS ORDERED: AMINO ACIDS PO SCH ×2 (22:00)
[2018-12-15] MEDS ORDERED: PROTEIN HYDROLYS PO SCH ×2 (22:00)
[2018-12-15] MEDS: COLACE PO SCH (22:52)
[2018-12-15] MEDS: HEPARIN SUB-Q SCH (22:52)
[2018-12-15] MEDS: NEURONTIN PO SCH (22:53)
[2018-12-15] MEDS: RisperDAL PO SCH (22:53)
[2018-12-15] MEDS: LOPRESSOR PO SCH (22:54)
[2018-12-15] MEDS: HumaLOG SUB-Q SCH (22:54)
[2018-12-15] MEDS: APRESOLINE PO SCH (22:56)
[2018-12-15] MEDS: SODIUM CHLORIDE FLUSH SYRINGE 10 ML IV SCH (22:57)
[2018-12-16] MEDS ORDERED: K-DUR PO ONE (01:32)
--- NOTE | 2018-12-16 01:37 | Event Note ---
Date: 12/15/18 Acute Encephalopathy ESRD on HD Volume overload
--- NOTE | 2018-12-16 01:41 | Event Note ---
Date: 12/15/18 See H/p in reports Encephalopathy Vol overload HTN
--- NOTE | 2018-12-16 02:03 | History and Physical Report ---
CHIEF COMPLAINT: 1. Altered mental status. 2. Shortness of breath. HISTORY OF PRESENT ILLNESS: A 63-year-old male with end-stage renal disease,Hemodialysis on Tuesdays, , Saturdays and history of hypertension, congestive heart failure, status post CABG, legally blind, diabetes, cerebrovascular accident and anemia, comes in for altered mental status and severe weakness. Also, increasing shortness of breath and orthopnea present. No fever or chills. No chest pain. No recent travel. The patient has been having shortness of breath on very minimal exertion and shortness of breath on lying down. The patient has class 4 NYHA symptoms. The patient also legally blind. Attending his hemodialysis clinic on a regular basis. PAST MEDICAL HISTORY: Significant for hypertension, cerebrovascular accident, congestive heart failure, diabetes, renal disease, COPD, dementia, atrial fibrillation, iron deficiency anemia, hyperparathyroidism, hypocalcemia, renal osteodystrophy. PAST SURGICAL HISTORY: Significant for open heart surgery, pacemaker, internal defibrillator, appendectomy, AV fistula in the left upper extremity, hemorrhoidectomy. SOCIAL HISTORY: Does not smoke. The patient is full code. FAMILY HISTORY: Hypertension. CURRENT MEDICATIONS: On the chart. PHYSICAL EXAMINATION: GENERAL: Elderly male, cooperative during examination. Legally blind, lethargic. Otherwise, responsive. VITAL SIGNS: Blood pressure is 170/96, temperature is 98.3, pulse is 99, sats 100%. HEENT: Unremarkable. Pupils equal and reactive. NECK: Supple, no lymphadenopathy, no thyromegaly. LUNGS: Scattered rales bilaterally. CARDIOVASCULAR SYSTEM: S1, S2 heard. No gallop, no murmur, no rub. Apical impulse in left fifth intercostal space in midclavicular line. ABDOMEN: Soft and benign. No hepatosplenomegaly. No guarding, no rigidity. Hernial orifices are normal. EXTREMITIES: Good pedal pulses. No pedal edema. LABORATORY DATA: Significant for white count of 5.8, H and H of 9.8 and 31.8, platelet count is 180,000. Sodium is 137, potassium is 3.1, chloride is 96.7, BUN and creatinine 32 and 4.1, total CK is 17. Urine is negative for infection. DIAGNOSTIC DATA: EKG shows sinus tachycardia, heart rate of 100 per minute. Chest x-ray shows pulmonary vascular congestion and cardiomegaly. ASSESSMENT AND PLAN: 1. Congestive heart failure exacerbation. The patient started on hemodialysis with more ultrafiltration. Nephrology consulted. 2. Volume overload and increased ultrafiltration. 3. End-stage renal disease, needing dialysis. Continue hemodialysis. 4. Acute encephalopathy, probably secondary to uremia. Control the uremia. 5. Hypertension. Continue antihypertensives. 6. Peripheral neuropathy. Continue gabapentin. 7. Dementia with agitation. Continue Risperdal. 8. Depression. Continue sertraline. 9. Hypokalemia -Supplemented 10. Deep venous thrombosis prophylaxis, heparin 5000 q. 12 and GI prophylaxis initiated 2100 JOB# [id number] VSM/NTS MTDD
[2018-12-16] MEDS: APRESOLINE PO SCH ×3 (06:13→21:37)
[2018-12-16 06:23] LABS: Albumin 2.5 g/dL (3.9-5); BUN/Creatinine Ratio 7; Blood Urea Nitrogen 34 mg/dL (9-20); Calcium 9.6 mg/dL (8.4-10.2); Hemolysis Index 27
[2018-12-16 06:40] LABS: Alanine Aminotransferase < 5 units/L (7-56)
[2018-12-16 06:56] LABS: Hematocrit 31.8 % (35.5-45.6); Hemoglobin 9.9 gm/dl (11.8-15.2); Mean Corpuscular HGB Conc 31 % (32-34); Mean Corpuscular Volume 83 fl (84-94); Platelet Count 156 K/mm3 (140-440); Red Blood Count 3.84 M/mm3 (3.65-5.03)
[2018-12-16 06:57] LABS: Red Cell Distribution Width 21.3 % (13.2-15.2)
[2018-12-16] MEDS ORDERED: K-DUR PO NR (07:06)
[2018-12-16 08:26] LABS: Total Cells Counted 100
[2018-12-16 08:27] LABS: Anisocytosis 1+; Hypochromasia 2+; Platelet Estimate Consistent w Auto; Poikilocytosis 1+; Target Cells Few
[2018-12-16] MEDS: HumaLOG SUB-Q SCH ×4 (08:47→21:38)
--- NOTE | 2018-12-16 10:28 | Consultation ---
History of Present Illness - Reason for Consult Consult date: 12/16/18 end stage renal disease, hypokalemia Requesting physician: RAJENDRA LATIF - History of Present Illness This is a 63-year-old gentleman. The patient has a past medical history of end-stage renal disease, on dialysis, Saturday, , Saturday, hypertension, heart disease status post CABG, stroke, diabetes, A. fib, anemia, hyperparathyroidism, hypocalcemia, COPD, schizophrenia, CHF. He essentially emergency room for evaluation of altered mental status and weakness. His primary care doctor at the assisted appears to be Dr. Rubin Varela. Initially upon arrival, the patient is altered and sleepy. He is not accompanied by any friends or family. The patient is not able to describe exacerbating or relieving factors, qualitative nature of his symptoms, or radiation. As per review of old medical records, during a recent discharge evaluation, he was found to be alert and oriented 1. While in the emergency room, the patient became more alert. He would follow some commands. He was able to tell the nurse caring for him his name, and the fact that he knew that he was in the hospital. He was unable to comment on physical pain. -: unknown Radiation: other Quality: other Consistency: other Improves with: other Worsens with: other Associated Symptoms: other ROS: Stated complaint: AMS Other details as noted in HPI Comment: Unobtainable due to pts medical conditions Neurological: confusion - Past Medical History Hx Hypertension: Yes Hx CVA: Yes Hx Heart Attack/AMI: No Hx Congestive Heart Failure: Yes Hx Diabetes: Yes Hx Renal Disease: Yes (TTS dialysis (Dr. Layne)) Hx Asthma: No Hx COPD: Yes Hx Dementia: Yes Hx HIV: No Additional medical history: A. FIB; Legally Blind. Iron-deficiency Anemia. Hyperparathyroidism. Hypocalcemia. renal osteodystrophy - Surgical History Hx Open Heart Surgery: Yes (CABBAGE) Hx Pacemaker: Yes (defibrillator) Hx Internal Defibrillator: Yes Hx Appendectomy: Yes Additional Surgical History: AV fistula in the left upper extremity, hemorrhoide ctomy - Social History Smoking Status: Never Smoker Medications and Allergies Allergies Allergy/AdvReac Type Severity Reaction Status Date / Time haloperidol [From Haldol] AdvReac Unknown Verified 03/13/18 12:10 haloperidol lactate AdvReac Unknown Verified 03/13/18 12:10 [From Haldol] Home Medications Medication Instructions Recorded Confirmed Last Taken Type risperiDONE [RisperDAL] 1 mg PO QAM 03/13/18 12/15/18 Unknown History Sertraline [Zoloft] 100 mg PO QDAY 08/26/18 12/15/18 Unknown History risperiDONE [RisperDAL] 0.5 mg PO HS 08/26/18 12/15/18 Unknown History Polyethylene Glycol 3350 [Miralax 17 gm PO QDAY #30 packet 11/05/18 12/15/18 Unknown Rx 3350] Aspirin EC 81 mg PO DAILY #30 11/19/18 12/15/18 Unknown Rx Docusate Sodium [Colace CAP] 100 mg PO BID #60 11/19/18 12/15/18 Unknown Rx Folic Acid [Folvite] 1 mg PO DAILY #30 tab 11/19/18 12/15/18 Unknown Rx Famotidine [Pepcid] 20 mg PO DAILY tablet 12/08/18 12/15/18 Unknown Rx Gabapentin [Neurontin] 100 mg PO QHS capsule 12/08/18 12/15/18 Unknown Rx Metoprolol [Lopressor TAB] 50 mg PO BID 30 Days tablet 12/08/18 12/15/18 Unknown Rx Sevelamer Carbonate [Renvela] 800 mg PO TIDWM tablet 12/08/18 12/15/18 Unknown Rx hydrALAZINE [Apresoline TAB] 100 mg PO Q8HR #120 tablet 12/08/18 12/15/18 Unknown Rx Acetaminophen [Acetaminophen TAB] 650 mg PO Q12H PRN 12/15/18 12/15/18 Unknown History Amino Acids/Protein Hydrolys 30 ml PO BID 12/15/18 12/15/18 Unknown History [Pro-Stat Sugar Free Liquid] Glucagon,Human Recombinant 1 mg IJ Q15MIN PRN 12/15/18 12/15/18 Unknown History [Glucagon Emergency Kit] Insulin Aspart [Novolog] See Protocol SQ QWEEK 12/15/18 12/15/18 Unknown History Morphine Sulfate [Morphine Sulfate 15 mg PO Q12H 12/15/18 12/15/18 Unknown History ER] Active Meds: Active Medications Acetaminophen (Tylenol) 650 mg PO Q4H PRN PRN Reason: Pain MILD(1-3)/Fever >100.5/HILL Aspirin (Halfprin Ec) 81 mg PO DAILY [facility] Docusate Sodium (Colace) 100 mg PO BID [facility] Last Admin: 12/15/18 22:52 Dose: 100 mg Documented by: Epoetin Solitario (Procrit) 10,000 unit IV UMA PRN PRN Reason: hemodialysis Famotidine (Pepcid) 20 mg PO DAILY [facility] Folic Acid (Folvite) 1 mg PO DAILY [facility] Gabapentin (Neurontin) 100 mg PO QHS [facility] Last Admin: 12/15/18 22:53 Dose: 100 mg Documented by: Heparin Sodium (Porcine) (Heparin) 5,000 unit SUB-Q Q12HR [facility] Last Admin: 12/15/18 22:52 Dose: 5,000 unit Documented by: Hydralazine HCl (Apresoline) 100 mg PO Q8HR [facility] Last Admin: 12/16/18 06:13 Dose: 100 mg Documented by: Sodium Chloride (Nacl 0.9%) 100 mls @ 999 mls/hr IV UMA PRN PRN Reason: Hypotension Insulin Human Lispro (Humalog) 0 unit SUB-Q [facility]; Protocol Last Admin: 12/16/18 08:47 Dose: Not Given Documented by: Metoprolol Tartrate (Lopressor) 50 mg PO BID [facility] Last Admin: 12/15/18 22:54 Dose: 50 mg Documented by: Morphine Sulfate (Ms Contin Er) 15 mg PO Q12H [facility] Last Admin: 12/15/18 20:05 Dose: 15 mg Documented by: Ondansetron HCl (Zofran) 4 mg IV Q8H PRN PRN Reason: Nausea And Vomiting Oxycodone/Acetaminophen (Percocet 5/325) 1 tab PO Q6H PRN PRN Reason: Pain, Moderate (4-6) Polyethylene Glycol (Miralax 3350) 17 gm PO QDAY [facility] Risperidone (Risperdal) 1 mg PO QAM [facility] Risperidone (Risperdal) 0.5 mg PO QHS [facility] Last Admin: 12/15/18 22:53 Dose: 0.5 mg Documented by: Sertraline HCl (Zoloft) 100 mg PO QDAY [facility] Sevelamer Carbonate (Renvela) 800 mg PO TIDWM [facility] Sodium Chloride (Sodium Chloride Flush Syringe 10 Ml) 10 ml IV BID [facility] Last Admin: 12/15/18 22:57 Dose: 10 ml Documented by: Sodium Chloride (Sodium Chloride Flush Syringe 10 Ml) 10 ml IV PRN PRN PRN Reason: LINE FLUSH Exam - Vital Signs Vital signs: Vital Signs Temp Pulse Resp BP Pulse Ox 99.4 F 99 H 18 155/83 100 12/15/18 12:57 12/15/18 12:57 12/15/18 12:57 12/15/18 12:57 12/15/18 12:57 - Physical Exam Narrative exam: - General Limitations: Altered Mental Status, Physical Limitation General appearance: lethargic - Head Head exam: Present: atraumatic, normocephalic - Eye Eye exam: Present: other. Absent: normal appearance (there is a right-sided ocular prosthesis noted. Left-sided extraocular movements appear to be intact) - ENT ENT exam: Present: mucous membranes dry - Neck Neck exam: Absent: tenderness, meningismus - Respiratory Respiratory exam: Present: rales (very faint rhonchi noted in the lower lung bases) - Cardiovascular Cardiovascular Exam: Present: regular rate, normal rhythm, normal heart sounds. Absent: bradycardia, tachycardia, irregular rhythm - GI/Abdominal GI/Abdominal exam: Present: soft. Absent: distended, tenderness, guarding, rebound, rigid, normal bowel sounds, pulsatile mass - Rectal Rectal exam: Present: other (chronic-appearing wounds noted.). Absent: normal inspection - exam: Present: normal inspection - Extremities Exam Extremities exam: Present: pedal edema, other (his left upper extremity edema noted. Left upper extremity dialysis axis noted, with no redness, pus or streaking.) - Back Exam Back exam: Present: normal inspection. Absent: CVA tenderness (R), paraspinal tenderness - Neurological Exam Neurological exam: Present: altered, other (detailed neurologic examination not performed secondary to altered mental status.The patient initially is confused and lethargic. He will respond in response to painful stimuli.He moves his upper and lower extremities spontaneously later on throughout his emergency room course.) - Psychiatric Psychiatric exam: Present: other (patient is minimally verbal) - Skin Skin exam: Present: dry Results - Lab Results 12/16/18 05:16 12/16/18 05:16 Most recent lab results Calcium 9.6 mg/dL (8.4-10.2) 12/16/18 05:16 Magnesium 2.00 mg/dL (1.7-2.3) 12/15/18 13:37 Assessment and Plan Impression: * End stage renal disease * Atrial fibrillation with RVR * Schizophrenia * AMS * Coronary artery disease * History of CVA * Anemia secondary to ESRD Plan: * UF as tolerated * hd today and then continue TTS schedule * Rate control per cardiology * Renal diet * Dose medications for renal function * Epogen TID prn
[2018-12-16] MEDS ORDERED: NACL 0.9% 100 ML IV PRN (10:29)
--- NOTE | 2018-12-16 11:44 | Progress Note ---
Assessment and Plan Assessment and plan: Acute Encephalopathy. Etiology unknown. Check NH3 aand TSH End stage renal disease. Nephrology following. HD today and then continue TTS schedule Atrial fibrillation/a-flutter. Rate is controlledContinue medications for rate control. Schizophrenia. Coronary artery disease. History of CVA. PT/OT Anemia secondary to ESRD. F/U H & H and transfuse for Hgb < 7.0 History Interval history: The patient has a past medical history of end-stage renal disease, on dialysis, Saturday, , Saturday, hypertension, heart disease status post CABG, stroke, diabetes, A. fib, anemia, hyperparathyroidism, hypocalcemia, COPD, schizophrenia, CHF. He essentially emergency room for evaluation of altered mental status and weakness. His primary care doctor at the [facility] appears to be Dr. Rubin Varlea. Initially upon arrival, the patient was noted to be altered and sleepy. He is not accompanied by any friends or family. The patient is not able to describe exacerbating or relieving factors, qualitative nature of his symptoms, or radiation. . A and O x 2. Pt seen in HD and denies any issues Hospitalist Physical - Constitutional Vitals: Temp Pulse Resp BP Pulse Ox 98.7 F 72 12 119/79 100 12/16/18 08:25 12/16/18 10:00 12/16/18 08:25 12/16/18 10:00 12/16/18 08:25 General appearance: Present: no acute distress, well-nourished - EENT Eyes: Present: PERRL, EOM intact ENT: hearing intact, clear oral mucosa, dentition normal - Neck Neck: Present: supple, normal ROM - Respiratory Respiratory effort: normal Respiratory: bilateral: CTA - Cardiovascular Rhythm: regular Heart Sounds: Present: S1 & S2. Absent: gallop, rub - Extremities Extremities: no ischemia, No edema, Full ROM - Abdominal General gastrointestinal: soft, non-tender, non-distended, normal bowel sounds - Integumentary Integumentary: Present: clear, warm, dry - Neurologic Neurologic: CNII-XII intact, moves all extremities Results - Labs CBC & Chem 7: 12/16/18 05:16 12/16/18 05:16 Labs: Laboratory Last Values WBC 4.7 K/mm3 (4.5-11.0) 12/16/18 05:16 RBC 3.84 M/mm3 (3.65-5.03) 12/16/18 05:16 Hgb 9.9 gm/dl (11.8-15.2) L 12/16/18 05:16 Hct 31.8 % (35.5-45.6) L 12/16/18 05:16 MCV 83 fl (84-94) L 12/16/18 05:16 MCH 26 pg (28-32) L 12/16/18 05:16 MCHC 31 % (32-34) L 12/16/18 05:16 RDW 21.3 % (13.2-15.2) H 12/16/18 05:16 Plt Count 156 K/mm3 (140-440) 12/16/18 05:16 Add Manual Diff Complete 12/16/18 05:16 Total Counted 100 12/16/18 05:16 Seg Neuts % (Manual) 90.0 % (40.0-70.0) H 12/16/18 05:16 0 % 12/16/18 05:16 3.0 % (13.4-35.0) L 12/16/18 05:16 Reactive Lymphs % (Man) 0 % 12/16/18 05:16 2.0 % (0.0-7.3) 12/16/18 05:16 2.0 % (0.0-4.3) 12/16/18 05:16 3.0 % (0.0-1.8) H 12/16/18 05:16 0 % 12/16/18 05:16 0 % 12/16/18 05:16 0 % 12/16/18 05:16 0 % 12/16/18 05:16 Nucleated RBC % Not Reportable 12/16/18 05:16 Seg Neutrophils # Man 4.2 K/mm3 (1.8-7.7) 12/16/18 05:16 Band Neutrophils # 0.0 K/mm3 12/16/18 05:16 0.1 K/mm3 (1.2-5.4) L 12/16/18 05:16 Abs React Lymphs (Man) 0.0 K/mm3 12/16/18 05:16 0.1 K/mm3 (0.0-0.8) 12/16/18 05:16 0.1 K/mm3 (0.0-0.4) 12/16/18 05:16 0.1 K/mm3 (0.0-0.1) 12/16/18 05:16 0.0 K/mm3 12/16/18 05:16 0.0 K/mm3 12/16/18 05:16 0.0 K/mm3 12/16/18 05:16 Blast Cells # 0.0 K/mm3 12/16/18 05:16 WBC Morphology Not Reportable 12/16/18 05:16 Hypersegmented Neuts Not Reportable 12/16/18 05:16 Hyposegmented Neuts Not Reportable 12/16/18 05:16 Hypogranular Neuts Not Reportable 12/16/18 05:16 Not Reportable 12/16/18 05:16 Not Reportable 12/16/18 05:16 Not Reportable 12/16/18 05:16 Not Reportable 12/16/18 05:16 Not Reportable 12/16/18 05:16 Not Reportable 12/16/18 05:16 Consistent w auto 12/16/18 05:16 Not Reportable 12/16/18 05:16 Plt Clumps, EDTA Not Reportable 12/16/18 05:16 Not Reportable 12/16/18 05:16 Not Reportable 12/16/18 05:16 Not Reportable 12/16/18 05:16 Plt Morphology Comment Not Reportable 12/16/18 05:16 RBC Morphology Not Reportable 12/16/18 05:16 Dimorphic RBCs Not Reportable 12/16/18 05:16 Not Reportable 12/16/18 05:16 2+ 12/16/18 05:16 1+ 12/16/18 05:16 1+ 12/16/18 05:16 Not Reportable 12/16/18 05:16 Not Reportable 12/16/18 05:16 Not Reportable 12/16/18 05:16 Not Reportable 12/16/18 05:16 Not Reportable 12/16/18 05:16 Few 12/16/18 05:16 Not Reportable 12/16/18 05:16 Not Reportable 12/16/18 05:16 Not Reportable 12/16/18 05:16 Not Reportable 12/16/18 05:16 Not Reportable 12/16/18 05:16 Not Reportable 12/16/18 05:16 Not Reportable 12/16/18 05:16 Not Reportable 12/16/18 05:16 Few 12/16/18 05:16 Acanthocytes (Spur) Not Reportable 12/16/18 05:16 Rouleaux Not Reportable 12/16/18 05:16 Not Reportable 12/16/18 05:16 Not Reportable 12/16/18 05:16 Not Reportable 12/16/18 05:16 Not Reportable 12/16/18 05:16 Hem Pathologist Commnt No 12/16/18 05:16 Sodium 137 mmol/L (137-145) 12/16/18 05:16 Potassium 3.3 mmol/L (3.6-5.0) L 12/16/18 05:16 Chloride 96.7 mmol/L (98-107) L 12/16/18 05:16 Carbon Dioxide 28 mmol/L (22-30) 12/16/18 05:16 16 mmol/L 12/16/18 05:16 BUN 34 mg/dL (9-20) H 12/16/18 05:16 4.8 mg/dL (0.8-1.5) H 12/16/18 05:16 Estimated GFR 15 ml/min 12/16/18 05:16 7 % 12/16/18 05:16 Glucose 94 mg/dL (75-100) 12/16/18 05:16 POC Glucose 79 (70-105) 12/16/18 08:10 4.6 % (4-6) 12/16/18 05:16 Lactic Acid 0.80 mmol/L (0.7-2.0) 12/15/18 13:31 Calcium 9.6 mg/dL (8.4-10.2) 12/16/18 05:16 Magnesium 2.00 mg/dL (1.7-2.3) 12/15/18 13:37 0.40 mg/dL (0.1-1.2) 12/16/18 05:16 AST 8 units/L (5-40) 12/16/18 05:16 ALT < 5 units/L (7-56) L 12/16/18 05:16 70 units/L (35-129) 12/16/18 05:16 42.0 umol/L (25-60) 12/15/18 13:37 17 units/L (55-170) L 12/15/18 13:37 6.1 g/dL (6.3-8.2) L 12/16/18 05:16 2.5 g/dL (3.9-5) L 12/16/18 05:16 0.7 % 12/16/18 05:16 TSH 2.780 mlU/mL (0.270-4.200) 12/15/18 13:37 Yellow (Yellow) 12/15/18 15:18 Turbid (Clear) 12/15/18 15:18 6.0 (5.0-7.0) 12/15/18 15:18 Ur Specific [place] 1.018 (1.003-1.030) 12/15/18 15:18 100 mg/dl mg/dL (Negative) 12/15/18 15:18 Neg mg/dL (Negative) 12/15/18 15:18 Neg mg/dL (Negative) 12/15/18 15:18 Neg (Negative) 12/15/18 15:18 Neg (Negative) 12/15/18 15:18 Neg (Negative) 12/15/18 15:18 < 2.0 mg/dL (<2.0) 12/15/18 15:18 Ur Leukocyte Esterase Sm (Negative) 12/15/18 15:18 < 1.0 /HPF (0.0-6.0) 12/15/18 15:18 < 1.0 /HPF (0.0-6.0) 12/15/18 15:18 Salicylates < 0.3 mg/dL (2.8-20.0) L 12/15/18 13:37 Acetaminophen < 5.0 ug/mL (10.0-30.0) L 12/15/18 13:37 Plasma/Serum Alcohol < 0.01 % (0-0.07) 12/15/18 13:37 Active Medications - Current Medications Current Medications: Generic Name Dose Route Start Last Admin Trade Name Freq PRN Reason Stop Dose Admin Acetaminophen 650 mg 12/15/18 19:07 Tylenol PO Q4H PRN Pain MILD(1-3)/Fever >100.5/[facility] Aspirin 81 mg 12/16/18 10:00 Halfprin Ec PO DAILY [facility] Docusate Sodium 100 mg 12/15/18 22:00 12/15/18 22:52 Colace PO 100 mg BID [facility] Administration Epoetin Solitario 10,000 unit 12/15/18 17:56 Procrit IV UMA PRN hemodialysis Famotidine 20 mg 12/16/18 10:00 Pepcid PO DAILY [facility] Folic Acid 1 mg 12/16/18 10:00 Folvite PO DAILY [facility] Gabapentin 100 mg 12/15/18 22:00 12/15/18 22:53 Neurontin PO 100 mg QHS [facility] Administration Heparin Sodium (Porcine) 5,000 unit 12/15/18 22:00 12/15/18 22:52 Heparin SUB-Q 5,000 unit Q12HR [facility] Administration Hydralazine HCl 100 mg 12/15/18 22:00 12/16/18 06:13 Apresoline PO 100 mg Q8HR [facility] Administration Sodium Chloride 100 mls @ 999 mls/hr 12/15/18 17:56 Nacl 0.9% IV UMA PRN Hypotension Sodium Chloride 100 mls @ 999 mls/hr 12/16/18 10:29 Nacl 0.9% IV UMA PRN Hypotension Insulin Human Lispro 0 unit 12/15/18 22:00 12/16/18 08:47 Humalog SUB-Q Not Given ACHS [facility] Protocol Metoprolol Tartrate 50 mg 12/15/18 22:00 12/15/18 22:54 Lopressor PO 50 mg BID [facility] Administration Morphine Sulfate 15 mg 12/15/18 20:00 12/15/18 20:05 Ms Contin Er PO 15 mg Q12H [facility] Administration Ondansetron HCl 4 mg 12/15/18 19:07 Zofran IV Q8H PRN Nausea And Vomiting Oxycodone/Acetaminophen 1 tab 12/15/18 19:07 Percocet 5/325 PO Q6H PRN Pain, Moderate (4-6) Polyethylene Glycol 17 gm 12/16/18 10:00 Miralax 3350 PO QDAY [facility] Risperidone 1 mg 12/16/18 10:00 Risperdal PO QAM [facility] Risperidone 0.5 mg 12/15/18 22:00 12/15/18 22:53 Risperdal PO 0.5 mg QHS [facility] Administration Sertraline HCl 100 mg 12/16/18 10:00 Zoloft PO QDAY [facility] Sevelamer Carbonate 800 mg 12/16/18 08:00 Renvela PO TIDWM [facility] Sodium Chloride 10 ml 12/15/18 22:00 12/15/18 22:57 Sodium Chloride Flush Syringe 10 Ml IV 10 ml BID [facility] Administration Sodium Chloride 10 ml 12/15/18 19:07 Sodium Chloride Flush Syringe 10 Ml IV PRN PRN LINE FLUSH
[2018-12-16] MEDS: PROCRIT IV PRN (12:53)
[2018-12-16] MEDS: PEPCID PO SCH (13:40)
[2018-12-16] MEDS: FOLVITE PO SCH (13:40)
[2018-12-16] MEDS: LOPRESSOR PO SCH ×2 (13:40→21:38)
[2018-12-16] MEDS: RisperDAL PO SCH ×2 (13:40→21:39)
[2018-12-16] MEDS: RENVELA PO SCH ×3 (13:40→17:41)
[2018-12-16] MEDS: ZOLOFT PO SCH (13:40)
[2018-12-16] MEDS: COLACE PO SCH ×2 (13:41→21:37)
[2018-12-16] MEDS: HALFPRIN EC PO SCH (13:41)
[2018-12-16] MEDS: MIRALAX 3350 PO SCH (13:46)
[2018-12-16] MEDS: SODIUM CHLORIDE FLUSH SYRINGE 10 ML IV SCH ×2 (13:47→21:40)
[2018-12-16] MEDS: MS CONTIN ER PO SCH ×2 (14:06→21:36)
[2018-12-16] MEDS: HEPARIN SUB-Q SCH ×2 (14:07→21:37)
[2018-12-16] MEDS: NEURONTIN PO SCH (21:39)
[2018-12-17] MEDS: APRESOLINE PO SCH ×3 (05:35→22:36)
[2018-12-17] MEDS: HumaLOG SUB-Q SCH ×4 (07:30→22:37)
[2018-12-17] MEDS: RisperDAL PO SCH ×2 (09:22→22:34)
[2018-12-17] MEDS: FOLVITE PO SCH (09:22)
[2018-12-17] MEDS: RENVELA PO SCH ×3 (09:22→18:59)
[2018-12-17] MEDS: ZOLOFT PO SCH (09:22)
[2018-12-17] MEDS: LOPRESSOR PO SCH ×2 (09:22→22:35)
[2018-12-17] MEDS: HEPARIN SUB-Q SCH ×2 (09:23→22:36)
[2018-12-17] MEDS: MIRALAX 3350 PO SCH (09:23)
[2018-12-17] MEDS: PEPCID PO SCH (09:25)
[2018-12-17] MEDS: HALFPRIN EC PO SCH (09:26)
[2018-12-17] MEDS: MS CONTIN ER PO SCH ×2 (09:26→22:34)
[2018-12-17] MEDS: COLACE PO SCH ×2 (09:26→22:34)
[2018-12-17] MEDS: SODIUM CHLORIDE FLUSH SYRINGE 10 ML IV SCH ×2 (09:27→22:37)
--- NOTE | 2018-12-17 10:11 | Progress Note ---
Assessment and Plan Impression: * End stage renal disease * Atrial fibrillation with RVR * Schizophrenia * AMS * Coronary artery disease * History of CVA * Anemia secondary to ESRD Plan: * UF as tolerated * hd today and continue TTS schedule * Rate control per cardiology * Renal diet * Dose medications for renal function * Epogen TID prn Subjective Date of service: 12/17/18 Principal diagnosis: esrd Interval history: resting in bed today Objective - Exam Narrative Exam: - General Limitations: Altered Mental Status, Physical Limitation General appearance: lethargic - Head Head exam: Present: atraumatic, normocephalic - Eye Eye exam: Present: other. Absent: normal appearance (there is a right-sided ocular prosthesis noted. Left-sided extraocular movements appear to be intact) - ENT ENT exam: Present: mucous membranes dry - Neck Neck exam: Absent: tenderness, meningismus - Respiratory Respiratory exam: Present: rales (very faint rhonchi noted in the lower lung bases) - Cardiovascular Cardiovascular Exam: Present: regular rate, normal rhythm, normal heart sounds. Absent: bradycardia, tachycardia, irregular rhythm - GI/Abdominal GI/Abdominal exam: Present: soft. Absent: distended, tenderness, guarding, rebound, rigid, normal bowel sounds, pulsatile mass - Rectal Rectal exam: Present: other (chronic-appearing wounds noted.). Absent: normal inspection - exam: Present: normal inspection - Extremities Exam Extremities exam: Present: pedal edema, other (his left upper extremity edema noted. Left upper extremity dialysis axis noted, with no redness, pus or streaking.) - Back Exam Back exam: Present: normal inspection. Absent: CVA tenderness (R), paraspinal tenderness - Neurological Exam Neurological exam: Present: altered, other (detailed neurologic examination not performed secondary to altered mental status.The patient initially is confused and lethargic. He will respond in response to painful stimuli.He moves his upper and lower extremities spontaneously later on throughout his emergency room course.) - Psychiatric Psychiatric exam: Present: other (patient is minimally verbal) - Skin Skin exam: Present: dry - Vital Signs Vital signs: Vital Signs - 12hr 12/16/18 12/17/18 12/17/18 23:59 03:40 05:35 Temperature 98.5 F 97.5 F L Pulse Rate 99 H 68 Respiratory 18 20 Rate Blood Pressure 117/80 118/68 118/68 Blood Pressure [Right] O2 Sat by Pulse 96 97 Oximetry 12/17/18 12/17/18 12/17/18 07:48 07:53 10:00 Temperature 97.9 F 98.2 F Pulse Rate 60 69 Respiratory 20 20 Rate Blood Pressure 144/65 Blood Pressure 150/90 [Right] O2 Sat by Pulse 100 100 96 Oximetry - Lab 12/16/18 05:16 12/16/18 05:16 Most recent lab results Calcium 9.6 mg/dL (8.4-10.2) 12/16/18 05:16 Magnesium 2.00 mg/dL (1.7-2.3) 12/15/18 13:37 Medications & Allergies - Medications Allergies/Adverse Reactions: Allergies haloperidol [From Haldol] Adverse Reaction (Verified 03/13/18 12:10) Unknown haloperidol lactate [From Haldol] Adverse Reaction (Verified 03/13/18 12:10) Unknown Home Medications: Home Medications Medication Instructions Recorded Confirmed Last Taken Type risperiDONE [RisperDAL] 1 mg PO QAM 03/13/18 12/15/18 Unknown History Sertraline [Zoloft] 100 mg PO QDAY 08/26/18 12/15/18 Unknown History risperiDONE [RisperDAL] 0.5 mg PO HS 08/26/18 12/15/18 Unknown History Polyethylene Glycol 3350 [Miralax 17 gm PO QDAY #30 packet 11/05/18 12/15/18 Unknown Rx 3350] Aspirin EC 81 mg PO DAILY #30 11/19/18 12/15/18 Unknown Rx Docusate Sodium [Colace CAP] 100 mg PO BID #60 11/19/18 12/15/18 Unknown Rx Folic Acid [Folvite] 1 mg PO DAILY #30 tab 11/19/18 12/15/18 Unknown Rx Famotidine [Pepcid] 20 mg PO DAILY tablet 12/08/18 12/15/18 Unknown Rx Gabapentin [Neurontin] 100 mg PO QHS capsule 12/08/18 12/15/18 Unknown Rx Metoprolol [Lopressor TAB] 50 mg PO BID 30 Days tablet 12/08/18 12/15/18 Unknown Rx Sevelamer Carbonate [Renvela] 800 mg PO TIDWM tablet 12/08/18 12/15/18 Unknown Rx hydrALAZINE [Apresoline TAB] 100 mg PO Q8HR #120 tablet 12/08/18 12/15/18 Unknown Rx Acetaminophen [Acetaminophen TAB] 650 mg PO Q12H PRN 12/15/18 12/15/18 Unknown History Amino Acids/Protein Hydrolys 30 ml PO BID 12/15/18 12/15/18 Unknown History [Pro-Stat Sugar Free Liquid] Glucagon,Human Recombinant 1 mg IJ Q15MIN PRN 12/15/18 12/15/18 Unknown History [Glucagon Emergency Kit] Insulin Aspart [Novolog] See Protocol SQ QWEEK 12/15/18 12/15/18 Unknown History Morphine Sulfate [Morphine Sulfate 15 mg PO Q12H 12/15/18 12/15/18 Unknown History ER] Active Medications: Generic Name Dose Route Start Last Admin Trade Name Freq PRN Reason Stop Dose Admin Acetaminophen 650 mg 12/15/18 19:07 Tylenol PO Q4H PRN Pain MILD(1-3)/Fever >100.5/HILL Aspirin 81 mg 12/16/18 10:00 12/17/18 09:26 Halfprin Ec PO 81 mg DAILY [facility] Administration Docusate Sodium 100 mg 12/15/18 22:00 12/17/18 09:26 Colace PO 100 mg BID [facility] Administration Epoetin Solitario 10,000 unit 12/15/18 17:56 12/16/18 12:53 Procrit IV 10,000 unit UMA PRN Administration hemodialysis Famotidine 20 mg 12/16/18 10:00 12/17/18 09:25 Pepcid PO 20 mg DAILY [facility] Administration Folic Acid 1 mg 12/16/18 10:00 12/17/18 09:22 Folvite PO 1 mg DAILY [facility] Administration Gabapentin 100 mg 12/15/18 22:00 12/16/18 21:39 Neurontin PO 100 mg QHS [facility] Administration Heparin Sodium (Porcine) 5,000 unit 12/15/18 22:00 12/17/18 09:23 Heparin SUB-Q 5,000 unit Q12HR [facility] Administration Hydralazine HCl 100 mg 12/15/18 22:00 12/17/18 05:35 Apresoline PO Not Given Q8HR [facility] Sodium Chloride 100 mls @ 999 mls/hr 12/16/18 10:29 Nacl 0.9% IV UMA PRN Hypotension Insulin Human Lispro 0 unit 12/15/18 22:00 12/16/18 21:38 Humalog SUB-Q Not Given ACHS [facility] Protocol Metoprolol Tartrate 50 mg 12/15/18 22:00 12/17/18 09:22 Lopressor PO 50 mg BID [facility] Administration Morphine Sulfate 15 mg 12/15/18 20:00 12/17/18 09:26 Ms Contin Er PO 15 mg Q12H [facility] Administration Ondansetron HCl 4 mg 12/15/18 19:07 Zofran IV Q8H PRN Nausea And Vomiting Oxycodone/Acetaminophen 1 tab 12/15/18 19:07 Percocet 5/325 PO Q6H PRN Pain, Moderate (4-6) Polyethylene Glycol 17 gm 12/16/18 10:00 12/17/18 09:23 Miralax 3350 PO 17 gm QDAY [facility] Administration Risperidone 1 mg 12/16/18 10:00 12/17/18 09:22 Risperdal PO 1 mg QAM [facility] Administration Risperidone 0.5 mg 12/15/18 22:00 12/16/18 21:39 Risperdal PO 0.5 mg QHS [facility] Administration Sertraline HCl 100 mg 12/16/18 10:00 12/17/18 09:22 Zoloft PO 100 mg QDAY [facility] Administration Sevelamer Carbonate 800 mg 12/16/18 08:00 12/17/18 09:22 Renvela PO 800 mg TIDWM [facility] Administration Sodium Chloride 10 ml 12/15/18 22:00 12/17/18 09:27 Sodium Chloride Flush Syringe 10 Ml IV 10 ml BID [facility] Administration Sodium Chloride 10 ml 12/15/18 19:07 Sodium Chloride Flush Syringe 10 Ml IV PRN PRN LINE FLUSH
--- NOTE | 2018-12-17 12:50 | Progress Note ---
Assessment and Plan Assessment and plan: Acute metabolic Encephalopathy. Resolved. NH3 aand TSH within normal limits End stage renal disease. Nephrology following. HD today and then continue TTS schedule Atrial fibrillation/a-flutter. Rate is controlled. Continue medications per cardiology Schizophrenia. Coronary artery disease. History of CVA. PT/OT Anemia secondary to ESRD. F/U H & H and transfuse for Hgb < 7.0 Disposition. Anticipate discharge if okay with nephrology. History Interval history: The patient has a past medical history of end-stage renal disease, on dialysis, Saturday, , Saturday, hypertension, heart disease status post CABG, stroke, diabetes, A. fib, anemia, hyperparathyroidism, hypocalcemia, COPD, schizophrenia, CHF. He essentially emergency room for evaluation of altered mental status and weakness. His primary care doctor [facility] the [facility] appears to be Dr. Rubin Varela. Initially upon arrival, the patient was noted to be altered and sleepy. He is not accompanied by any friends or family. The patient is not able to describe exacerbating or relieving factors, qualitative nature of his symptoms, or radiation. . A and O x 2. Hospitalist Physical - Constitutional Vitals: Temp Pulse Resp BP Pulse Ox 98.2 F 69 20 144/65 96 12/17/18 07:53 12/17/18 07:53 12/17/18 07:53 12/17/18 07:53 12/17/18 10:00 General appearance: Present: no acute distress, well-nourished - EENT Eyes: Present: PERRL, EOM intact ENT: hearing intact, clear oral mucosa, dentition normal - Neck Neck: Present: supple, normal ROM - Respiratory Respiratory effort: normal Respiratory: bilateral: CTA - Cardiovascular Rhythm: regular Heart Sounds: Present: S1 & S2. Absent: gallop, rub - Extremities Extremities: no ischemia, No edema, Full ROM - Abdominal General gastrointestinal: soft, non-tender, non-distended, normal bowel sounds - Integumentary Integumentary: Present: clear, warm, dry - Neurologic Neurologic: CNII-XII intact, moves all extremities Results - Labs CBC & Chem 7: 12/16/18 05:16 12/16/18 05:16 Labs: Laboratory Last Values WBC 4.7 K/mm3 (4.5-11.0) 12/16/18 05:16 RBC 3.84 M/mm3 (3.65-5.03) 12/16/18 05:16 Hgb 9.9 gm/dl (11.8-15.2) L 12/16/18 05:16 Hct 31.8 % (35.5-45.6) L 12/16/18 05:16 MCV 83 fl (84-94) L 12/16/18 05:16 MCH 26 pg (28-32) L 12/16/18 05:16 MCHC 31 % (32-34) L 12/16/18 05:16 RDW 21.3 % (13.2-15.2) H 12/16/18 05:16 Plt Count 156 K/mm3 (140-440) 12/16/18 05:16 Add Manual Diff Complete 12/16/18 05:16 Total Counted 100 12/16/18 05:16 Seg Neuts % (Manual) 90.0 % (40.0-70.0) H 12/16/18 05:16 0 % 12/16/18 05:16 3.0 % (13.4-35.0) L 12/16/18 05:16 Reactive Lymphs % (Man) 0 % 12/16/18 05:16 2.0 % (0.0-7.3) 12/16/18 05:16 2.0 % (0.0-4.3) 12/16/18 05:16 3.0 % (0.0-1.8) H 12/16/18 05:16 0 % 12/16/18 05:16 0 % 12/16/18 05:16 0 % 12/16/18 05:16 0 % 12/16/18 05:16 Nucleated RBC % Not Reportable 12/16/18 05:16 Seg Neutrophils # Man 4.2 K/mm3 (1.8-7.7) 12/16/18 05:16 Band Neutrophils # 0.0 K/mm3 12/16/18 05:16 0.1 K/mm3 (1.2-5.4) L 12/16/18 05:16 Abs React Lymphs (Man) 0.0 K/mm3 12/16/18 05:16 0.1 K/mm3 (0.0-0.8) 12/16/18 05:16 0.1 K/mm3 (0.0-0.4) 12/16/18 05:16 0.1 K/mm3 (0.0-0.1) 12/16/18 05:16 0.0 K/mm3 12/16/18 05:16 0.0 K/mm3 12/16/18 05:16 0.0 K/mm3 12/16/18 05:16 Blast Cells # 0.0 K/mm3 12/16/18 05:16 WBC Morphology Not Reportable 12/16/18 05:16 Hypersegmented Neuts Not Reportable 12/16/18 05:16 Hyposegmented Neuts Not Reportable 12/16/18 05:16 Hypogranular Neuts Not Reportable 12/16/18 05:16 Not Reportable 12/16/18 05:16 Not Reportable 12/16/18 05:16 Not Reportable 12/16/18 05:16 Not Reportable 12/16/18 05:16 Not Reportable 12/16/18 05:16 Not Reportable 12/16/18 05:16 Consistent w auto 12/16/18 05:16 Not Reportable 12/16/18 05:16 Plt Clumps, EDTA Not Reportable 12/16/18 05:16 Not Reportable 12/16/18 05:16 Not Reportable 12/16/18 05:16 Not Reportable 12/16/18 05:16 Plt Morphology Comment Not Reportable 12/16/18 05:16 RBC Morphology Not Reportable 12/16/18 05:16 Dimorphic RBCs Not Reportable 12/16/18 05:16 Not Reportable 12/16/18 05:16 2+ 12/16/18 05:16 1+ 12/16/18 05:16 1+ 12/16/18 05:16 Not Reportable 12/16/18 05:16 Not Reportable 12/16/18 05:16 Not Reportable 12/16/18 05:16 Not Reportable 12/16/18 05:16 Not Reportable 12/16/18 05:16 Few 12/16/18 05:16 Not Reportable 12/16/18 05:16 Not Reportable 12/16/18 05:16 Not Reportable 12/16/18 05:16 Not Reportable 12/16/18 05:16 Not Reportable 12/16/18 05:16 Not Reportable 12/16/18 05:16 Not Reportable 12/16/18 05:16 Not Reportable 12/16/18 05:16 Few 12/16/18 05:16 Acanthocytes (Spur) Not Reportable 12/16/18 05:16 Rouleaux Not Reportable 12/16/18 05:16 Not Reportable 12/16/18 05:16 Not Reportable 12/16/18 05:16 Not Reportable 12/16/18 05:16 Not Reportable 12/16/18 05:16 Hem Pathologist Commnt No 12/16/18 05:16 Sodium 137 mmol/L (137-145) 12/16/18 05:16 Potassium 3.3 mmol/L (3.6-5.0) L 12/16/18 05:16 Chloride 96.7 mmol/L (98-107) L 12/16/18 05:16 Carbon Dioxide 28 mmol/L (22-30) 12/16/18 05:16 16 mmol/L 12/16/18 05:16 BUN 34 mg/dL (9-20) H 12/16/18 05:16 4.8 mg/dL (0.8-1.5) H 12/16/18 05:16 Estimated GFR 15 ml/min 12/16/18 05:16 7 % 12/16/18 05:16 Glucose 94 mg/dL (75-100) 12/16/18 05:16 POC Glucose 84 (70-105) 12/17/18 11:12 4.6 % (4-6) 12/16/18 05:16 Lactic Acid 0.80 mmol/L (0.7-2.0) 12/15/18 13:31 Calcium 9.6 mg/dL (8.4-10.2) 12/16/18 05:16 Magnesium 2.00 mg/dL (1.7-2.3) 12/15/18 13:37 0.40 mg/dL (0.1-1.2) 12/16/18 05:16 AST 8 units/L (5-40) 12/16/18 05:16 ALT < 5 units/L (7-56) L 12/16/18 05:16 70 units/L (35-129) 12/16/18 05:16 25.0 umol/L (25-60) 12/17/18 10:50 17 units/L (55-170) L 12/15/18 13:37 6.1 g/dL (6.3-8.2) L 12/16/18 05:16 2.5 g/dL (3.9-5) L 12/16/18 05:16 0.7 % 12/16/18 05:16 TSH 2.830 mlU/mL (0.270-4.200) 12/17/18 10:55 Yellow (Yellow) 12/15/18 15:18 Turbid (Clear) 12/15/18 15:18 6.0 (5.0-7.0) 12/15/18 15:18 Ur Specific [place] 1.018 (1.003-1.030) 12/15/18 15:18 100 mg/dl mg/dL (Negative) 12/15/18 15:18 Neg mg/dL (Negative) 12/15/18 15:18 Neg mg/dL (Negative) 12/15/18 15:18 Neg (Negative) 12/15/18 15:18 Neg (Negative) 12/15/18 15:18 Neg (Negative) 12/15/18 15:18 < 2.0 mg/dL (<2.0) 12/15/18 15:18 Ur Leukocyte Esterase Sm (Negative) 12/15/18 15:18 < 1.0 /HPF (0.0-6.0) 12/15/18 15:18 < 1.0 /HPF (0.0-6.0) 12/15/18 15:18 Salicylates < 0.3 mg/dL (2.8-20.0) L 12/15/18 13:37 Acetaminophen < 5.0 ug/mL (10.0-30.0) L 12/15/18 13:37 Plasma/Serum Alcohol < 0.01 % (0-0.07) 12/15/18 13:37 Active Medications - Current Medications Current Medications: Generic Name Dose Route Start Last Admin Trade Name Freq PRN Reason Stop Dose Admin Acetaminophen 650 mg 12/15/18 19:07 Tylenol PO Q4H PRN Pain MILD(1-3)/Fever >100.5/HILL Aspirin 81 mg 12/16/18 10:00 12/17/18 09:26 Halfprin Ec PO 81 mg DAILY [facility] Administration Docusate Sodium 100 mg 12/15/18 22:00 12/17/18 09:26 Colace PO 100 mg BID [facility] Administration Epoetin Solitario 10,000 unit 12/15/18 17:56 12/16/18 12:53 Procrit IV 10,000 unit UMA PRN Administration hemodialysis Famotidine 20 mg 12/16/18 10:00 12/17/18 09:25 Pepcid PO 20 mg DAILY [facility] Administration Folic Acid 1 mg 12/16/18 10:00 12/17/18 09:22 Folvite PO 1 mg DAILY [facility] Administration Gabapentin 100 mg 12/15/18 22:00 12/16/18 21:39 Neurontin PO 100 mg QHS [facility] Administration Heparin Sodium (Porcine) 5,000 unit 12/15/18 22:00 12/17/18 09:23 Heparin SUB-Q 5,000 unit Q12HR [facility] Administration Hydralazine HCl 100 mg 12/15/18 22:00 12/17/18 05:35 Apresoline PO Not Given Q8HR [facility] Sodium Chloride 100 mls @ 999 mls/hr 12/16/18 10:29 Nacl 0.9% IV UMA PRN Hypotension Insulin Human Lispro 0 unit 12/15/18 22:00 12/16/18 21:38 Humalog SUB-Q Not Given ACHS [facility] Protocol Metoprolol Tartrate 50 mg 12/15/18 22:00 12/17/18 09:22 Lopressor PO 50 mg BID [facility] Administration Morphine Sulfate 15 mg 12/15/18 20:00 12/17/18 09:26 Ms Contin Er PO 15 mg Q12H [facility] Administration Ondansetron HCl 4 mg 12/15/18 19:07 Zofran IV Q8H PRN Nausea And Vomiting Oxycodone/Acetaminophen 1 tab 12/15/18 19:07 Percocet 5/325 PO Q6H PRN Pain, Moderate (4-6) Polyethylene Glycol 17 gm 12/16/18 10:00 12/17/18 09:23 Miralax 3350 PO 17 gm QDAY [facility] Administration Risperidone 1 mg 12/16/18 10:00 12/17/18 09:22 Risperdal PO 1 mg QAM [facility] Administration Risperidone 0.5 mg 12/15/18 22:00 12/16/18 21:39 Risperdal PO 0.5 mg QHS [facility] Administration Sertraline HCl 100 mg 12/16/18 10:00 12/17/18 09:22 Zoloft PO 100 mg QDAY [facility] Administration Sevelamer Carbonate 800 mg 12/16/18 08:00 12/17/18 09:22 Renvela PO 800 mg TIDWM [facility] Administration Sodium Chloride 10 ml 12/15/18 22:00 12/17/18 09:27 Sodium Chloride Flush Syringe 10 Ml IV 10 ml BID [facility] Administration Sodium Chloride 10 ml 12/15/18 19:07 Sodium Chloride Flush Syringe 10 Ml IV PRN PRN LINE FLUSH Nutrition/Malnutrition Assess - Dietary Evaluation Nutrition/Malnutrition Findings: Nutrition Notes Start: 12/16/18 14:41 Freq: Status: Active Protocol: Document 12/16/18 14:41 [facility] (Rec: 12/16/18 14:48 [facility] SRW- [id number]) Nutrition Notes 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 He is from [place]. Pt not in room at time of visit (11:38); at HD. Pt is legally blind with hx of depression. Burn Absent Trauma Absent #1 Nutrition Diagnosis Predicted suboptimal energy intake Etiology AMS, CHF exacerbation As Evidenced by Signs and Symptoms pt admitted with SOB; consumed 25% of lunch today Is patient on ventilator? No Is Patient Ambulatory and/or Out of Bed No REE-([facility]-confined to bed) [phone] Calculation Used for Recommendations [facility] Additional Notes Pro needs 1.2-1.4g/k- 128g/day Fluid needs 1-1.5L/day Nutrition Intervention Change Diet Order: Continue current diet order Goal #1 PO intake to meet at least 75% energy and pro needs Anticipated Discharge Needs: Continue renal diet Follow-Up By: 12/19/18 Additional Comments F/U: intakes
[2018-12-17] MEDS: NEURONTIN PO SCH (22:34)
[2018-12-18] MEDS: APRESOLINE PO SCH (06:35)
--- NOTE | 2018-12-18 10:01 | Discharge Summary ---
Providers - Providers Date of Admission: 12/15/18 17:25 Date of discharge: 12/18/18 Attending physician: MISAEL GOEL 12/15/18 15:26 Consult to Physician [CONS] Urgent Comment: Consulting Provider: ANAHI NEWBERRY Physician Instructions: Reason For Exam: volume overload 12/16/18 12:00 Consult to Wound/ET Nurse [CONS] Routine Reason For Exam: wound eval 12/16/18 13:05 Speech Therapy Evaluation and Treat [CONS] Urgent Reason For Exam: unable to clear secretions Primary care physician: RUBIN VARELA Hospitalization Reason for admission: AMS Condition: Fair Hospital course: The patient has a past medical history of end-stage renal disease, on dialysis, Saturday, , Saturday, hypertension, heart disease status post CABG, stroke, diabetes, A. fib, anemia, hyperparathyroidism, hypocalcemia, COPD, schizophrenia, CHF. He essentially emergency room for evaluation of altered mental status and weakness. His primary care doctor at the [facility] appears to be Dr. Rubin Varela. Initially upon arrival, the patient was noted to be altered and sleepy. Patient was admitted with diagnosis of metabolic encephalopathy. Patient and no lateralizing signs or symptoms suggestive of CVA. The patient on with CT scan of the head was found to be negative. Ammonia level and TSH were normal. Patient returned back to his baseline mental status after hemodialysis treatment. Patient was seen by nephrology in consultation for appropriate scheduled treatments. Patient is felt to have received maximal hospital benefit and will be discharged back to [facility]. Dedicated discharge time 32 minutes Disposition: [id number] Core Measure Documentation - Palliative Care Palliative Care/ Comfort Measures: Not Applicable - Core Measures Any of the following diagnoses?: none Exam - Constitutional Vitals: Temp Pulse Resp BP Pulse Ox 97.3 F L 70 18 119/67 96 12/18/18 08:19 12/18/18 08:19 12/18/18 08:19 12/18/18 08:19 12/18/18 09:01 General appearance: Present: no acute distress, well-nourished - EENT Eyes: Present: PERRL ENT: hearing intact, clear oral mucosa - Neck Neck: Present: supple, normal ROM - Respiratory Respiratory effort: normal Respiratory: bilateral: CTA - Cardiovascular Heart Sounds: Present: S1 & S2. Absent: rub, click - Extremities Extremities: pulses symmetrical, No edema Peripheral Pulses: within normal limits - Abdominal General gastrointestinal: Present: soft, non-tender, non-distended, normal bowel sounds Male genitourinary: Present: normal - Integumentary Integumentary: Present: clear, warm, dry - Musculoskeletal Musculoskeletal: gait normal, strength equal bilaterally - Psychiatric Psychiatric: appropriate mood/affect, intact judgment & insight - Neurologic Neurologic: CNII-XII intact, moves all extremities Plan Activity: advance as tolerated Weight Bearing Status: Weight Bear as Tolerated Diet: renal Follow up with: RUBIN VARELA MD [Primary Care Provider] - 3-5 Days ANAHI NEWBERRY MD [Staff Physician] - 7 Days
--- NOTE | 2018-12-18 10:22 | Progress Note ---
Assessment and Plan Impression: * End stage renal disease * Atrial fibrillation with RVR * Schizophrenia * AMS * Coronary artery disease * History of CVA * Anemia secondary to ESRD Plan: * UF as tolerated * continue TTS schedule * Rate control per cardiology * Renal diet * Dose medications for renal function * Epogen TID prn * ok to dc Subjective Date of service: 12/18/18 Principal diagnosis: esrd Interval history: resting in bed today Objective - Exam Narrative Exam: - General Limitations: Altered Mental Status, Physical Limitation General appearance: lethargic - Head Head exam: Present: atraumatic, normocephalic - Eye Eye exam: Present: other. Absent: normal appearance (there is a right-sided ocular prosthesis noted. Left-sided extraocular movements appear to be intact) - ENT ENT exam: Present: mucous membranes dry - Neck Neck exam: Absent: tenderness, meningismus - Respiratory Respiratory exam: Present: rales (very faint rhonchi noted in the lower lung bases) - Cardiovascular Cardiovascular Exam: Present: regular rate, normal rhythm, normal heart sounds. Absent: bradycardia, tachycardia, irregular rhythm - GI/Abdominal GI/Abdominal exam: Present: soft. Absent: distended, tenderness, guarding, rebound, rigid, normal bowel sounds, pulsatile mass - Rectal Rectal exam: Present: other (chronic-appearing wounds noted.). Absent: normal inspection - exam: Present: normal inspection - Extremities Exam Extremities exam: Present: pedal edema, other (his left upper extremity edema noted. Left upper extremity dialysis axis noted, with no redness, pus or streaking.) - Back Exam Back exam: Present: normal inspection. Absent: CVA tenderness (R), paraspinal tenderness - Neurological Exam Neurological exam: Present: altered, other (detailed neurologic examination not performed secondary to altered mental status.The patient initially is confused and lethargic. He will respond in response to painful stimuli.He moves his upper and lower extremities spontaneously later on throughout his emergency room course.) - Psychiatric Psychiatric exam: Present: other (patient is minimally verbal) - Skin Skin exam: Present: dry - Vital Signs Vital signs: Vital Signs - 12hr 12/17/18 12/17/18 12/17/18 22:35 22:36 23:00 Temperature 98.3 F Pulse Rate 94 H 94 H 67 Respiratory 18 Rate Blood Pressure 149/86 149/86 Blood Pressure 141/86 [Right] O2 Sat by Pulse 97 Oximetry 12/18/18 12/18/18 12/18/18 04:20 06:35 08:19 Temperature 98.1 F 97.3 F L Pulse Rate 71 68 70 Respiratory 18 18 Rate Blood Pressure 114/70 114/70 119/67 Blood Pressure [Right] O2 Sat by Pulse 100 100 Oximetry 12/18/18 09:01 Temperature Pulse Rate Respiratory Rate Blood Pressure Blood Pressure [Right] O2 Sat by Pulse 96 Oximetry - Lab 12/16/18 05:16 12/16/18 05:16 Most recent lab results Calcium 9.6 mg/dL (8.4-10.2) 12/16/18 05:16 Magnesium 2.00 mg/dL (1.7-2.3) 12/15/18 13:37 Medications & Allergies - Medications Allergies/Adverse Reactions: Allergies haloperidol [From Haldol] Adverse Reaction (Verified 03/13/18 12:10) Unknown haloperidol lactate [From Haldol] Adverse Reaction (Verified 03/13/18 12:10) Unknown Home Medications: Home Medications Medication Instructions Recorded Confirmed Last Taken Type risperiDONE [RisperDAL] 1 mg PO QAM 03/13/18 12/15/18 Unknown History Sertraline [Zoloft] 100 mg PO QDAY 08/26/18 12/15/18 Unknown History risperiDONE [RisperDAL] 0.5 mg PO HS 08/26/18 12/15/18 Unknown History Polyethylene Glycol 3350 [Miralax 17 gm PO QDAY #30 packet 11/05/18 12/15/18 Unknown Rx 3350] Aspirin EC 81 mg PO DAILY #30 11/19/18 12/15/18 Unknown Rx Docusate Sodium [Colace CAP] 100 mg PO BID #60 11/19/18 12/15/18 Unknown Rx Folic Acid [Folvite] 1 mg PO DAILY #30 tab 11/19/18 12/15/18 Unknown Rx Famotidine [Pepcid] 20 mg PO DAILY tablet 12/08/18 12/15/18 Unknown Rx Gabapentin [Neurontin] 100 mg PO QHS capsule 12/08/18 12/15/18 Unknown Rx Metoprolol [Lopressor TAB] 50 mg PO BID 30 Days tablet 12/08/18 12/15/18 Unknown Rx Sevelamer Carbonate [Renvela] 800 mg PO TIDWM tablet 12/08/18 12/15/18 Unknown Rx hydrALAZINE [Apresoline TAB] 100 mg PO Q8HR #120 tablet 12/08/18 12/15/18 Unknown Rx Acetaminophen [Acetaminophen TAB] 650 mg PO Q12H PRN 12/15/18 12/15/18 Unknown History Amino Acids/Protein Hydrolys 30 ml PO BID 12/15/18 12/15/18 Unknown History [Pro-Stat Sugar Free Liquid] Glucagon,Human Recombinant 1 mg IJ Q15MIN PRN 12/15/18 12/15/18 Unknown History [Glucagon Emergency Kit] Insulin Aspart [NovoLOG 100 See Protocol SQ QWEEK 12/15/18 12/15/18 Unknown History UNITS/ML VIAL] Epoetin Solitario 10,000 Unit [Procrit] 10,000 unit IV UMA PRN vial 12/18/18 Unknown Rx Lispro Insulin [HumaLOG] 0 unit SUB-Q ACHS units 12/18/18 Unknown Rx risperiDONE [RisperDAL] 0.5 mg PO QHS tablet 12/18/18 Unknown Rx Active Medications: Generic Name Dose Route Start Last Admin Trade Name Freq PRN Reason Stop Dose Admin Acetaminophen 650 mg 12/15/18 19:07 Tylenol PO Q4H PRN Pain MILD(1-3)/Fever >100.5/HILL Aspirin 81 mg 12/16/18 10:00 12/17/18 09:26 Halfprin Ec PO 81 mg DAILY SANCHEZ Administration Docusate Sodium 100 mg 12/15/18 22:00 12/17/18 22:34 Colace PO 100 mg BID SANCHEZ Administration Epoetin Solitario 10,000 unit 12/15/18 17:56 12/16/18 12:53 Procrit IV 10,000 unit UMA PRN Administration hemodialysis Famotidine 20 mg 12/16/18 10:00 12/17/18 09:25 Pepcid PO 20 mg DAILY SANCHEZ Administration Folic Acid 1 mg 12/16/18 10:00 12/17/18 09:22 Folvite PO 1 mg DAILY SANCHEZ Administration Gabapentin 100 mg 12/15/18 22:00 12/17/18 22:34 Neurontin PO 100 mg QHS SANCHEZ Administration Heparin Sodium (Porcine) 5,000 unit 12/15/18 22:00 12/17/18 22:36 Heparin SUB-Q 5,000 unit Q12HR SANCHEZ Administration Hydralazine HCl 100 mg 12/15/18 22:00 12/18/18 06:35 Apresoline PO 100 mg Q8HR SANCHEZ Administration Sodium Chloride 100 mls @ 999 mls/hr 12/16/18 10:29 Nacl 0.9% IV UMA PRN Hypotension Insulin Human Lispro 0 unit 12/15/18 22:00 12/17/18 22:37 Humalog SUB-Q Not Given ACHS [facility] Protocol Metoprolol Tartrate 50 mg 12/15/18 22:00 12/17/18 22:35 Lopressor PO 50 mg BID SANCHEZ Administration Morphine Sulfate 15 mg 12/15/18 20:00 12/17/18 22:34 Ms Contin Er PO 15 mg Q12H SANCHEZ Administration Ondansetron HCl 4 mg 12/15/18 19:07 Zofran IV Q8H PRN Nausea And Vomiting Oxycodone/Acetaminophen 1 tab 12/15/18 19:07 12/17/18 15:17 Percocet 5/325 PO 1 tab Q6H PRN Administration Pain, Moderate (4-6) Polyethylene Glycol 17 gm 12/16/18 10:00 12/17/18 09:23 Miralax 3350 PO 17 gm QDAY SANCHEZ Administration Risperidone 1 mg 12/16/18 10:00 12/17/18 09:22 Risperdal PO 1 mg QAM SANCHEZ Administration Risperidone 0.5 mg 12/15/18 22:00 12/17/18 22:34 Risperdal PO 0.5 mg QHS SANCHEZ Administration Sertraline HCl 100 mg 12/16/18 10:00 12/17/18 09:22 Zoloft PO 100 mg QDAY SANCHEZ Administration Sevelamer Carbonate 800 mg 12/16/18 08:00 12/17/18 18:59 Renvela PO 800 mg TIDWM SANCHEZ Administration Sodium Chloride 10 ml 12/15/18 22:00 12/17/18 22:37 Sodium Chloride Flush Syringe 10 Ml IV 10 ml BID SANCHEZ Administration Sodium Chloride 10 ml 12/15/18 19:07 Sodium Chloride Flush Syringe 10 Ml IV PRN PRN LINE FLUSH
[2018-12-18] MEDS ORDERED: CATHFLO ONE (10:43)
[2018-12-18] MEDS ORDERED: WATER FOR INJ Sterile (PF) 10 ML ONE (10:44)
[2018-12-18] MEDS ORDERED: NACL 0.9% 100 ML IV PRN (11:00)
[2018-12-18] MEDS ORDERED: CATHFLO IV PRN (11:00)
[2018-12-18] MEDS: PROCRIT IV PRN (16:12)
[2018-12-18 17:19] VITALS: BP 122/71
== END 2018-12-18 18:45 | DRG 70 ==
LOC: ED 12:29 → OBSVTOIN 17:25 → 3A 17:25 → 4A 19:29
PROVIDERS: ADMIT Internal Medicine; ATTEND Hospitalist
PROC: 5A1D70Z Performance of Urinary Filtration, Intermittent, Less than 6 Hours Per Day (ICD-10-PCS; principal; 2018-12-16)
PROC: 5A1D70Z Performance of Urinary Filtration, Intermittent, Less than 6 Hours Per Day (ICD-10-PCS; 2018-12-18)
DX: G93.41 Metabolic encephalopathy (principal); N18.6 End stage renal disease; I13.2 Hypertensive heart and chronic kidney disease with heart failure and with stage 5 chronic kidney disease, or end stage renal disease; I48.92 Unspecified atrial flutter; E87.70 Fluid overload, unspecified; D63.1 Anemia in chronic kidney disease; I48.91 Unspecified atrial fibrillation; F20.9 Schizophrenia, unspecified; I25.10 Atherosclerotic heart disease of native coronary artery without angina pectoris; E11.22 Type 2 diabetes mellitus with diabetic chronic kidney disease; J44.9 Chronic obstructive pulmonary disease, unspecified; I50.9 Heart failure, unspecified; F03.90 Unspecified dementia, unspecified severity, without behavioral disturbance, psychotic disturbance, mood disturbance, and anxiety; H54.8 Legal blindness, as defined in USA; E11.42 Type 2 diabetes mellitus with diabetic polyneuropathy; E87.6 Hypokalemia; E21.3 Hyperparathyroidism, unspecified; Z95.810 Presence of automatic (implantable) cardiac defibrillator; Z86.73 Personal history of transient ischemic attack (TIA), and cerebral infarction without residual deficits; Z95.1 Presence of aortocoronary bypass graft; Z99.2 Dependence on renal dialysis; Z90.49 Acquired absence of other specified parts of digestive tract; Z79.899 Other long term (current) drug therapy; Z79.82 Long term (current) use of aspirin; Z82.49 Family history of ischemic heart disease and other diseases of the circulatory system
CPT/HCPCS: 36415; 70450; 71045; 80048; 80053; 80320; 81001; 82140; 82550; 82962; 83036; 83735; 84443; 85007; 85025; 87040; 93005; 93010; 93306; 94760; 96374; G0378; G0480; J0885; J1644; J1940; J2997; J3246

== ENCOUNTER 2018-12-26 16:11 | Inpatient (IN) | payer MEDICARE ==
[2018-12-26] MEDS ORDERED: NACL 0.9% 500 ML 500 ML IV ONE (16:30)
--- NOTE | 2018-12-26 16:34 | Emergency Department Report ---
ED Altered Mental Status HPI - General Stated Complaint: NOT EATING Time Seen by Provider: 12/26/18 16:29 Source: patient Mode of arrival: Ambulatory Limitations: Altered Mental Status - History of Present Illness Initial Comments: Patient is a 63-year-old male that presents emergent for altered mental status decreased oral intake and weight loss. Patient was brought in by EMS. The patient is in [facility]. EMS states that the [facility] stated that he has been altered and less responsive and not eaten anything or had any oral and a take for 3-4 days. She has been refusing to eat. care home wants patient evaluated for failure to thrive. Patient has also had weight loss of 20 pounds since 12/08/2018. care home record reviewed MD Complaint: altered mental status, confusion, decreased responsiveness -: Sudden Severity: severe Consistency of Symptoms: getting worse - Related Data Home Medications Medication Instructions Recorded Confirmed Last Taken risperiDONE [RisperDAL] 1 mg PO QAM 03/13/18 12/15/18 Unknown Sertraline [Zoloft] 100 mg PO QDAY 08/26/18 12/15/18 Unknown risperiDONE [RisperDAL] 0.5 mg PO HS 08/26/18 12/15/18 Unknown Acetaminophen [Acetaminophen TAB] 650 mg PO Q12H PRN 12/15/18 12/15/18 Unknown Amino Acids/Protein Hydrolys 30 ml PO BID 12/15/18 12/15/18 Unknown [Pro-Stat Sugar Free Liquid] Glucagon,Human Recombinant 1 mg IJ Q15MIN PRN 12/15/18 12/15/18 Unknown [Glucagon Emergency Kit] Insulin Aspart [NovoLOG 100 See Protocol SQ QWEEK 12/15/18 12/15/18 Unknown UNITS/ML VIAL] Previous Rx's Medication Instructions Recorded Last Taken Type Polyethylene Glycol 3350 [Miralax 17 gm PO QDAY #30 packet 11/05/18 Unknown Rx 3350] Aspirin EC 81 mg PO DAILY #30 11/19/18 Unknown Rx Docusate Sodium [Colace CAP] 100 mg PO BID #60 11/19/18 Unknown Rx Folic Acid [Folvite] 1 mg PO DAILY #30 tab 11/19/18 Unknown Rx Famotidine [Pepcid] 20 mg PO DAILY tablet 12/08/18 Unknown Rx Gabapentin [Neurontin] 100 mg PO QHS capsule 12/08/18 Unknown Rx Metoprolol [Lopressor TAB] 50 mg PO BID 30 Days tablet 12/08/18 Unknown Rx Sevelamer Carbonate [Renvela] 800 mg PO TIDWM tablet 12/08/18 Unknown Rx hydrALAZINE [Apresoline TAB] 100 mg PO Q8HR #120 tablet 12/08/18 Unknown Rx Epoetin Solitario 10,000 Unit [Procrit] 10,000 unit IV UMA PRN vial 12/18/18 Unknown Rx Lispro Insulin [HumaLOG] 0 unit SUB-Q ACHS units 12/18/18 Unknown Rx risperiDONE [RisperDAL] 0.5 mg PO QHS tablet 12/18/18 Unknown Rx Allergies Allergy/AdvReac Type Severity Reaction Status Date / Time haloperidol [From Haldol] AdvReac Unknown Verified 03/13/18 12:10 haloperidol lactate AdvReac Unknown Verified 03/13/18 12:10 [From Haldol] ED Review of Systems ROS: Stated complaint: NOT EATING Other details as noted in HPI Comment: Unobtainable due to pts medical conditions ED Past Medical Hx - Past Medical History Previous Medical History?: Yes Hx Hypertension: Yes Hx CVA: Yes Hx Heart Attack/AMI: No Hx Congestive Heart Failure: Yes Hx Diabetes: Yes Hx Renal Disease: Yes (TTS dialysis (Dr. Layne)) Hx Asthma: No Hx COPD: Yes Hx Dementia: Yes Hx HIV: No Additional medical history: A. FIB; Legally Blind. Iron-deficiency Anemia. Hyperparathyroidism. Hypocalcemia. renal osteodystrophy - Surgical History Past Surgical History?: Yes Hx Open Heart Surgery: Yes Hx Pacemaker: Yes (defibrillator) Hx Internal Defibrillator: Yes Hx Appendectomy: Yes Additional Surgical History: AV fistula in the left upper extremity, hemorrhoidectomy - Family History Family history: no significant - Social History Smoking Status: Never Smoker Substance Use Type: None - Medications Home Medications: Home Medications Medication Instructions Recorded Confirmed Last Taken Type risperiDONE [RisperDAL] 1 mg PO QAM 03/13/18 12/15/18 Unknown History Sertraline [Zoloft] 100 mg PO QDAY 08/26/18 12/15/18 Unknown History risperiDONE [RisperDAL] 0.5 mg PO HS 08/26/18 12/15/18 Unknown History Polyethylene Glycol 3350 [Miralax 17 gm PO QDAY #30 packet 11/05/18 12/15/18 Unknown Rx 3350] Aspirin EC 81 mg PO DAILY #30 11/19/18 12/15/18 Unknown Rx Docusate Sodium [Colace CAP] 100 mg PO BID #60 11/19/18 12/15/18 Unknown Rx Folic Acid [Folvite] 1 mg PO DAILY #30 tab 11/19/18 12/15/18 Unknown Rx Famotidine [Pepcid] 20 mg PO DAILY tablet 12/08/18 12/15/18 Unknown Rx Gabapentin [Neurontin] 100 mg PO QHS capsule 12/08/18 12/15/18 Unknown Rx Metoprolol [Lopressor TAB] 50 mg PO BID 30 Days tablet 12/08/18 12/15/18 Unknown Rx Sevelamer Carbonate [Renvela] 800 mg PO TIDWM tablet 12/08/18 12/15/18 Unknown Rx hydrALAZINE [Apresoline TAB] 100 mg PO Q8HR #120 tablet 12/08/18 12/15/18 Unknown Rx Acetaminophen [Acetaminophen TAB] 650 mg PO Q12H PRN 12/15/18 12/15/18 Unknown History Amino Acids/Protein Hydrolys 30 ml PO BID 12/15/18 12/15/18 Unknown History [Pro-Stat Sugar Free Liquid] Glucagon,Human Recombinant 1 mg IJ Q15MIN PRN 12/15/18 12/15/18 Unknown History [Glucagon Emergency Kit] Insulin Aspart [NovoLOG 100 See Protocol SQ QWEEK 12/15/18 12/15/18 Unknown History UNITS/ML VIAL] Epoetin Solitario 10,000 Unit [Procrit] 10,000 unit IV UMA PRN vial 12/18/18 Unknown Rx Lispro Insulin [HumaLOG] 0 unit SUB-Q ACHS units 12/18/18 Unknown Rx risperiDONE [RisperDAL] 0.5 mg PO QHS tablet 12/18/18 Unknown Rx ED Physical Exam - General Limitations: Altered Mental Status General appearance: alert, in no apparent distress - Head Head exam: Present: atraumatic, normocephalic - Eye Eye exam: Present: normal appearance - ENT ENT exam: Present: mucous membranes moist - Neck Neck exam: Present: normal inspection - Respiratory Respiratory exam: Present: normal lung sounds bilaterally. Absent: respiratory distress - Cardiovascular Cardiovascular Exam: Present: regular rate, normal rhythm. Absent: systolic murmur, diastolic murmur, rubs, gallop - GI/Abdominal GI/Abdominal exam: Present: soft, normal bowel sounds. Absent: distended, tenderness, guarding - Rectal Rectal exam: Present: deferred - Extremities Exam Extremities exam: Present: normal inspection - Back Exam Back exam: Present: normal inspection - Neurological Exam Neurological exam: Present: alert, altered - Psychiatric Psychiatric exam: Present: normal affect, normal mood - Skin Skin exam: Present: warm, dry, intact, normal color. Absent: rash - Assessment Assessment Interval: Baseline - Level of Consciousness 1a. Level of Consciousness: alert/keenly responsive - LOC Questions 1b. LOC Questions: answers 1 question correctly - LOC Command 1c. LOC Commands: performs no tasks correctly - Best Gaze 2. Best Gaze: normal - Visual 3. Visual: no visual loss - Facial Palsy 4. Facial Palsy: normal symmetrical movement - Motor Arm 5a. Motor Arm Left: no drift 5b. Motor Arm Right: no drift - Motor Leg 6a. Motor Leg Left: no drift 6b. Motor Leg Right: no drift - Limb Ataxia 7. Limb Ataxia: absent - Sensory 8. Sensory: normal - Best Language 9. Best Language: mild/moderate aphasia - Dysarthria 10. Dysarthria: mild/moderate dysarthria - Extinction and Inattention 11. Extinction/Inattention: no abnormality - Scoring Total Score: 5 Stroke Severity: Moderate Stroke ED Course Vital Signs 12/26/18 17:21 Temperature 100.1 F H Pulse Rate 125 H Respiratory 17 Rate Blood Pressure 88/44 O2 Sat by Pulse 100 Oximetry - Reevaluation(s) Reevaluation #1: Discussed all results with patient. Patient will be admitted to the hospitalist service. Patient agrees to plan of care. 12/26/18 20:00 - Consultations Consultation #1: Hospitalist consulted for admission. Hospitalist to admit patient. Hospitalist to assume care patient. 12/26/18 20:00 - Lab Data Result diagrams: 12/26/18 17:12 12/26/18 17:12 Lab Results 12/26/18 12/26/18 12/26/18 Range/Units 17:12 17:12 17:12 WBC 8.3 (4.5-11.0) K/mm3 RBC 3.97 (3.65-5.03) M/mm3 Hgb 10.1 L (11.8-15.2) gm/dl Hct 32.2 L (35.5-45.6) % MCV 81 L (84-94) fl MCH 25 L (28-32) pg MCHC 31 L (32-34) % RDW 20.3 H (13.2-15.2) % Plt Count 124 L (140-440) K/mm3 Lymph % (Auto) 6.0 L (13.4-35.0) % Tift % (Auto) 4.7 (0.0-7.3) % Eos % (Auto) 0.2 (0.0-4.3) % Baso % (Auto) 0.5 (0.0-1.8) % Lymph # 0.5 L (1.2-5.4) K/mm3 Tift # 0.4 (0.0-0.8) K/mm3 Eos # 0.0 (0.0-0.4) K/mm3 Baso # 0.0 (0.0-0.1) K/mm3 Seg Neutrophils % 88.6 H (40.0-70.0) % Seg Neutrophils # 7.4 (1.8-7.7) K/mm3 Sodium 131 L (137-145) mmol/L Potassium 4.0 (3.6-5.0) mmol/L Chloride 92.7 L (98-107) mmol/L Carbon Dioxide 24 (22-30) mmol/L Anion Gap 18 mmol/L BUN 38 H (9-20) mg/dL Creatinine 5.0 H (0.8-1.5) mg/dL Estimated GFR 14 ml/min BUN/Creatinine Ratio 8 % Glucose 100 (75-100) mg/dL Lactic Acid 1.50 (0.7-2.0) mmol/L Calcium 9.8 (8.4-10.2) mg/dL Total Bilirubin 0.50 (0.1-1.2) mg/dL AST 8 (5-40) units/L ALT < 5 L (7-56) units/L Alkaline Phosphatase 109 (35-129) units/L Total Creatine Kinase (55-170) units/L Troponin T 0.158 H* (0.00-0.029) ng/mL Total Protein 6.1 L (6.3-8.2) g/dL Albumin 2.5 L (3.9-5) g/dL Albumin/Globulin Ratio 0.7 % Triglycerides 75 (2-149) mg/dL Cholesterol 109 (50-199) mg/dL LDL Cholesterol Direct 43 L (50-130) mg/dL HDL Cholesterol 41 (40-59) mg/dL Cholesterol/HDL Ratio 2.65 % 12/26/18 Range/Units 17:12 WBC (4.5-11.0) K/mm3 RBC (3.65-5.03) M/mm3 Hgb (11.8-15.2) gm/dl Hct (35.5-45.6) % MCV (84-94) fl MCH (28-32) pg MCHC (32-34) % RDW (13.2-15.2) % Plt Count (140-440) K/mm3 Lymph % (Auto) (13.4-35.0) % Tift % (Auto) (0.0-7.3) % Eos % (Auto) (0.0-4.3) % Baso % (Auto) (0.0-1.8) % Lymph # (1.2-5.4) K/mm3 Tift # (0.0-0.8) K/mm3 Eos # (0.0-0.4) K/mm3 Baso # (0.0-0.1) K/mm3 Seg Neutrophils % (40.0-70.0) % Seg Neutrophils # (1.8-7.7) K/mm3 Sodium (137-145) mmol/L Potassium (3.6-5.0) mmol/L Chloride (98-107) mmol/L Carbon Dioxide (22-30) mmol/L Anion Gap mmol/L BUN (9-20) mg/dL Creatinine (0.8-1.5) mg/dL Estimated GFR ml/min BUN/Creatinine Ratio % Glucose (75-100) mg/dL Lactic Acid (0.7-2.0) mmol/L Calcium (8.4-10.2) mg/dL Total Bilirubin (0.1-1.2) mg/dL AST (5-40) units/L ALT (7-56) units/L Alkaline Phosphatase (35-129) units/L Total Creatine Kinase 29 L (55-170) units/L Troponin T (0.00-0.029) ng/mL Total Protein (6.3-8.2) g/dL Albumin (3.9-5) g/dL Albumin/Globulin Ratio % Triglycerides (2-149) mg/dL Cholesterol (50-199) mg/dL LDL Cholesterol Direct (50-130) mg/dL HDL Cholesterol (40-59) mg/dL Cholesterol/HDL Ratio % - EKG Data -: EKG Interpreted by [facility] EKG shows normal: axis, intervals, QRS complexes, ST-T waves Rate: tachycardia Interpretation: other (atrial flutter) - Radiology Data Radiology results: report reviewed, image reviewed PROCEDURE: XR CHEST 1V AP TECHNIQUE: Chest radiograph single view. HISTORY: ams/ COMPARISONS: Chest x-ray dated November 14, 2018 . A previous chest x-ray dated December 15, 2018 is not available for review at the time of this dictation. FINDINGS: The tip of a right central venous catheter is projected in the region of the superior vena cava. There is prominence of the interstitial markings in both lungs with the appearance of patchy areas of pulmonary consolidation in both lungs that is less marked when compared to the previous chest x- ray of November 14, 2018. There is prominence of the pulmonary venous vasculature suggestive of pulmonary venous congestion. There is no evidence of pneumothorax or pleural fluid collection. The cardiac silhouette is enlarged. The thoracic aorta is unremarkable. A loop recorder is projected over the left hemithorax. There is partial visualization of a stent graft in the left axillary region. IMPRESSION: 1. Enlarged cardiac silhouette with bilateral interstitial and airspace process and evidence of pulmonary venous congestion. This most likely represents CHF. However, an infectious component cannot entirely be excluded. 2. Central venous catheter with tip projected in the region of the superior vena cava. 3. Loop recorder. PROCEDURE: CT HEAD/BRAIN WO CON TECHNIQUE: Computerized tomography of the head was performed without contrast material. CT DOSE LENGTH PRODUCT: 2057.5 mGycm HISTORY: Altered Mental Status COMPARISONS: 12/15/2018 . FINDINGS: Right ocular prosthesis again noted. Nonspecific multiple small fluid levels in the inferior left mastoid air cells. Clear right mastoid air cells and bilateral middle ear cavities. Clear included paranasal sinuses. Areas of chronic encephalomalacia and volume loss are unchanged. These are suggestive of chronic unchanged infarcts in the following locations: Left cerebellar hemisphere Left parietal lobe Right parietal lobe Right parieto-occipital watershed region Bone windows demonstrate no acute fracture. There is ventricular and sulcal prominence compatible with age-appropriate global cerebrocortical atrophy. The brain contains no mass, mass effect, hemorrhage, or acute infarct. There is no extra-axial intracranial bleed, brain bleed, or midline shift. IMPRESSION: No acute CVA, intracranial bleed, or brain mass Multiple small fluid level in left mastoid air cells inferiorly may reflect eustachian tube dysfunction. Differential includes acute left mastoiditis Stable bilateral chronic-appearing infarcts - Medical Decision Making Condition is a 63-year-old male that presents emergency room with altered mental status and poor oral intake. Patient was sent over here by her [facility] for failure to thrive. Patient was found to have a fever upon arrival. Patient's labs done in consistent with end-stage renal disease and anemia. Patient also found to have an elevated troponin. Patient had CT negative. Patient had a chest x-ray which shows CHF changes. - Differential Diagnosis altered mental status. AFTT. Fever. Dehydration Critical Care Time: Yes Critical care attestation.: If time is entered above; I have spent that time in minutes in the direct care of this critically ill patient, excluding procedure time. Critical Care Time: 45 minutes ED Disposition Clinical Impression: Anemia in ESRD (end-stage renal disease), Elevated troponin, End stage renal disease, CKD (chronic kidney disease) stage V requiring chronic dialysis, Dehydration, Poor appetite Fever Qualifiers: Fever type: unspecified Qualified Code(s): R50.9 - Fever, unspecified Altered mental state Qualifiers: Altered mental status type: unspecified Qualified Code(s): R41.82 - Altered mental status, unspecified CHF (congestive heart failure) Qualifiers: Heart failure type: unspecified Heart failure chronicity: acute on chronic Qualified Code(s): I50.9 - Heart failure, unspecified Disposition: DC-09 OP ADMIT IP TO THIS HOSP Is pt being admited?: Yes Does the pt Need Aspirin: No Condition: Critical Time of Disposition: 20:01
[2018-12-26] MEDS ORDERED: MAXIPIME/NS 1 GM/100 ML 1 GM/100 ML BAG IV ONE (17:10)
--- NOTE | 2018-12-26 17:48 | Cat Scan Report ---
PROCEDURE: CT HEAD/BRAIN WO CON TECHNIQUE: Computerized tomography of the head was performed without contrast material. CT DOSE LENGTH PRODUCT: 2057.5 mGycm HISTORY: Altered Mental Status COMPARISONS: 12/15/2018 . FINDINGS: Right ocular prosthesis again noted. Nonspecific multiple small fluid levels in the inferior left mastoid air cells. Clear right mastoid a ir cells and bilateral middle ear cavities. Clear included paranasal sinuses. Areas of chronic encephalomalacia and volume loss are unchanged. These are suggestive of chronic unch anged infarcts in the following locations: Left cerebellar hemisphere Left parietal lobe Right parietal lobe Right parieto-occipital watershed region Bone windows demonstrate no acute fracture. There is ventricular and sulcal prominence compatible with age-appropriate global cerebrocortical atr ophy. The brain contains no mass, mass effect, hemorrhage, or acute infarct. There is no extra-axial intracranial bleed, brain bleed, or midline shift. IMPRESSION: No acute CVA, intracranial bleed, or brain mass Multiple small fluid level in left mastoid air cells inferiorly may reflect eustachian tube dysfuncti on. Differential includes acute left mastoiditis Stable bilateral chronic-appearing infarcts This document is electronically signed by Corby Shahid MD., December 26 2018 05:46:40 PM ET
[2018-12-26 18:10] LABS: Basophils % (Auto) 0.5 % (0.0-1.8); Eosinophils % (Auto) 0.2 % (0.0-4.3); Hematocrit 32.2 % (35.5-45.6); Hemoglobin 10.1 gm/dl (11.8-15.2); Lymphocytes # (Auto) 0.5 K/mm3 (1.2-5.4); Mean Corpuscular HGB Conc 31 % (32-34); Mean Corpuscular Volume 81 fl (84-94); Monocytes # (Auto) 0.4 K/mm3 (0.0-0.8); Monocytes % (Auto) 4.7 % (0.0-7.3); Platelet Count 124 K/mm3 (140-440); Red Blood Count 3.97 M/mm3 (3.65-5.03)
[2018-12-26 18:20] LABS: Red Cell Distribution Width 20.3 % (13.2-15.2)
[2018-12-26 18:28] LABS: Albumin 2.5 g/dL (3.9-5); BUN/Creatinine Ratio 8; Blood Urea Nitrogen 38 mg/dL (9-20); Calcium 9.8 mg/dL (8.4-10.2); Hemolysis Index 23
[2018-12-26 18:46] LABS: Alanine Aminotransferase < 5 units/L (7-56)
[2018-12-26 19:00] LABS: Chol/HDL Ratio 2.65 %; HDL Cholesterol 41 mg/dL (40-59); LDL Cholesterol,Direct 43 mg/dL (50-130)
--- NOTE | 2018-12-26 19:05 | XRay Report ---
PROCEDURE: XR CHEST 1V AP TECHNIQUE: Chest radiograph single view. HISTORY: ams/ COMPARISONS: Chest x-ray dated November 14, 2018 . A previous chest x-ray dated December 15, 2018 is not avai lable for review at the time of this dictation. FINDINGS: The tip of a right central venous catheter is projected in the region of the superior vena cava. There is prominence of the interstitial markings in both lungs with the appearance of patchy areas of pulmonary consolidation in both lungs that is less marked when compared to the previous chest x-ray of November 14, 2018. There is prominence of the pulmonary venous vasculature suggestive of pulmonary venous congestion. There is no evidence of pneumothorax or pleural fluid collection. The cardiac silhouette is enlarged. The thoracic aorta is unremarkable. A loop recorder is projected over the left hemithorax. There is partial visualization of a stent graft in the left axillary region. IMPRESSION: 1. Enlarged cardiac silhouette with bilateral interstitial and airspace process and evidence of pulmo nary venous congestion. This most likely represents CHF. However, an infectious component cannot enti rely be excluded. 2. Central venous catheter with tip projected in the region of the superior vena cava. 3. Loop recorder. This document is electronically signed by Ana Cee MD., December 26 2018 07:03:42 PM ET
--- NOTE | 2018-12-26 20:28 | History and Physical Report ---
History of Present Illness Date of examination: 12/26/18 Date of admission: 12/26/2018 Chief complaint: Decreased responsiveness and altered sensorium for 1 day History of present illness: 63-year-old -[place] male with multiple medical problems sent from [facility] for altered sensorium and decreased responsiveness. Patient end-stage renal disease hypertension insulin-dependent diabetes COPD and CHF. No fever or chills. Decreased responsive and not eating at all for the last 36 hours. No shortness of breath. No chest pain. Patient has failure to thrive and weight loss of 20 pounds since 12/08/2018. Discharge summary from 12/16/2018: The patient has a past medical history of end-stage renal disease, on dialysis, Saturday, , Saturday, hypertension, heart disease status post CABG, stroke, diabetes, A. fib, anemia, hyperparathyroidism, hypocalcemia, COPD, schizophrenia, CHF. He essentially emergency room for evaluation of altered mental status and weakness. His primary care doctor at the [facility] appears to be Dr. Rubin Varela. Initially upon arrival, the patient was noted to be altered and sleepy. Patient was admitted with diagnosis of metabolic encephalopathy. Patient and no lateralizing signs or symptoms suggestive of CVA. The patient on with CT scan of the head was found to be negative. Ammonia level and TSH were normal. Patient returned back to his baseline mental status after hemodialysis treatment. Patient was seen by nephrology in consultation for appropriate scheduled treatments. Patient is felt to have received maximal hospital benefit and will be discharged back to [facility]. Dedicated discharge time 32 minutes Disposition: [id number] Past Medical History Previous Medical History?: Yes Hypertension: Yes CVA: Yes Congestive Heart Failure: Yes Diabetes: Yes Renal Disease: Yes (TTS dialysis (Dr. Layne)) COPD: Yes Dementia: Yes Additional medical history: A. FIB; Legally Blind. Iron-deficiency Anemia. Hyperparathyroidism. Hypocalcemia. renal osteodystrophy Surgical History Past Surgical History?: Yes Open Heart Surgery: Yes Pacemaker: Yes (defibrillator) Internal Defibrillator: Yes Appendectomy: Yes Additional Surgical History: AV fistula in the left upper extremity, hemorrhoidectomy Family History Family history: no significant Social History Smoking Status: Never Smoker Substance Use Type: None Medications Home Medications: Home Medications Medication Instructions Recorded Confirmed Last Taken Type risperiDONE [RisperDAL] 1 mg PO QAM 03/13/18 12/15/18 Unknown History Sertraline [Zoloft] 100 mg PO QDAY 08/26/18 12/15/18 Unknown History risperiDONE [RisperDAL] 0.5 mg PO HS 08/26/18 12/15/18 Unknown History Polyethylene Glycol 3350 [Miralax 17 gm PO QDAY #30 packet 11/05/18 12/15/18 Unknown Rx 3350] Aspirin EC 81 mg PO DAILY #30 11/19/18 12/15/18 Unknown Rx Docusate Sodium [Colace CAP] 100 mg PO BID #60 11/19/18 12/15/18 Unknown Rx Folic Acid [Folvite] 1 mg PO DAILY #30 tab 11/19/18 12/15/18 Unknown Rx Famotidine [Pepcid] 20 mg PO DAILY tablet 12/08/18 12/15/18 Unknown Rx Gabapentin [Neurontin] 100 mg PO QHS capsule 12/08/18 12/15/18 Unknown Rx Metoprolol [Lopressor TAB] 50 mg PO BID 30 Days tablet 12/08/18 12/15/18 Unknown Rx Sevelamer Carbonate [Renvela] 800 mg PO TIDWM tablet 12/08/18 12/15/18 Unknown Rx hydrALAZINE [Apresoline TAB] 100 mg PO Q8HR #120 tablet 12/08/18 12/15/18 Unknown Rx Acetaminophen [Acetaminophen TAB] 650 mg PO Q12H PRN 12/15/18 12/15/18 Unknown History Amino Acids/Protein Hydrolys 30 ml PO BID 12/15/18 12/15/18 Unknown History [Pro-Stat Sugar Free Liquid] Glucagon,Human Recombinant 1 mg IJ Q15MIN PRN 12/15/18 12/15/18 Unknown History [Glucagon Emergency Kit] Insulin Aspart [NovoLOG 100 See Protocol SQ QWEEK 12/15/18 12/15/18 Unknown History UNITS/ML VIAL] Epoetin Solitario 10,000 Unit [Procrit] 10,000 unit IV UMA PRN vial 12/18/18 Unknown Rx Lispro Insulin [HumaLOG] 0 unit SUB-Q ACHS units 12/18/18 Unknown Rx risperiDONE [RisperDAL] 0.5 mg PO QHS tablet 12/18/18 Unknown Rx Review of systems ROS: Stated complaint: NOT EATING Altered sensorium and decreased responsiveness Other details as noted in HPI Comment: Unobtainable due to pts medical conditions Medications and Allergies Allergies Allergy/AdvReac Type Severity Reaction Status Date / Time haloperidol [From Haldol] AdvReac Unknown Verified 03/13/18 12:10 haloperidol lactate AdvReac Unknown Verified 03/13/18 12:10 [From Haldol] Home Medications Medication Instructions Recorded Confirmed Last Taken Type risperiDONE [RisperDAL] 1 mg PO QAM 03/13/18 12/15/18 Unknown History Sertraline [Zoloft] 100 mg PO QDAY 08/26/18 12/15/18 Unknown History risperiDONE [RisperDAL] 0.5 mg PO HS 08/26/18 12/15/18 Unknown History Polyethylene Glycol 3350 [Miralax 17 gm PO QDAY #30 packet 11/05/18 12/15/18 Unknown Rx 3350] Aspirin EC 81 mg PO DAILY #30 11/19/18 12/15/18 Unknown Rx Docusate Sodium [Colace CAP] 100 mg PO BID #60 11/19/18 12/15/18 Unknown Rx Folic Acid [Folvite] 1 mg PO DAILY #30 tab 11/19/18 12/15/18 Unknown Rx Famotidine [Pepcid] 20 mg PO DAILY tablet 12/08/18 12/15/18 Unknown Rx Gabapentin [Neurontin] 100 mg PO QHS capsule 12/08/18 12/15/18 Unknown Rx Metoprolol [Lopressor TAB] 50 mg PO BID 30 Days tablet 12/08/18 12/15/18 Unknown Rx Sevelamer Carbonate [Renvela] 800 mg PO TIDWM tablet 12/08/18 12/15/18 Unknown Rx hydrALAZINE [Apresoline TAB] 100 mg PO Q8HR #120 tablet 12/08/18 12/15/18 Unknow n Rx Acetaminophen [Acetaminophen TAB] 650 mg PO Q12H PRN 12/15/18 12/15/18 Unknown History Amino Acids/Protein Hydrolys 30 ml PO BID 12/15/18 12/15/18 Unknown History [Pro-Stat Sugar Free Liquid] Glucagon,Human Recombinant 1 mg IJ Q15MIN PRN 12/15/18 12/15/18 Unknown History [Glucagon Emergency Kit] Insulin Aspart [NovoLOG 100 See Protocol SQ QWEEK 12/15/18 12/15/18 Unknown Hi story UNITS/ML VIAL] Epoetin Solitario 10,000 Unit [Procrit] 10,000 unit IV UMA PRN vial 12/18/18 Unknown Rx Lispro Insulin [HumaLOG] 0 unit SUB-Q ACHS units 12/18/18 Unknown Rx risperiDONE [RisperDAL] 0.5 mg PO QHS tablet 12/18/18 Unknown Rx Exam - Physical Exam Narrative exam: Patient is discharged and with decreased responsiveness - Constitutional Vitals: Temp Pulse Resp BP Pulse Ox 100.1 F H 112 H 17 88/44 100 12/26/18 17:21 12/26/18 20:02 12/26/18 17:21 12/26/18 17:21 12/26/18 17:21 General appearance: Present: no acute distress, cachectic, disheveled - EENT Eyes: Present: PERRL ENT: hearing intact, clear oral mucosa - Neck Neck: Present: supple, normal ROM - Respiratory Respiratory effort: normal Respiratory: bilateral: CTA - Cardiovascular Heart rate: 122 Rhythm: regularly irregular Heart Sounds: Present: S1 & S2. Absent: rub, click - Extremities Extremities: no ischemia, pulses symmetrical, No edema, abnormal ( left fourth and fifth toes amputate) Extremity abnormal: pulses diminished, other (both feet in [place] boots) Peripheral Pulses: within normal limits - Abdominal General gastrointestinal: Present: soft, non-tender, non-distended, normal bowel sounds Male genitourinary: Present: normal - Integumentary Integumentary: Present: clear, warm, dry - Musculoskeletal Musculoskeletal: gait normal, strength equal bilaterally - Psychiatric Psychiatric: appropriate mood/affect, intact judgment & insight - Neurologic Neurologic: CNII-XII intact, moves all extremities Results - Labs CBC & Chem 7: 12/26/18 17:12 12/26/18 17:12 Labs: Laboratory Last Values WBC 8.3 K/mm3 (4.5-11.0) 12/26/18 17:12 RBC 3.97 M/mm3 (3.65-5.03) 12/26/18 17:12 Hgb 10.1 gm/dl (11.8-15.2) L 12/26/18 17:12 Hct 32.2 % (35.5-45.6) L 12/26/18 17:12 MCV 81 fl (84-94) L 12/26/18 17:12 MCH 25 pg (28-32) L 12/26/18 17:12 MCHC 31 % (32-34) L 12/26/18 17:12 RDW 20.3 % (13.2-15.2) H 12/26/18 17:12 Plt Count 124 K/mm3 (140-440) L 12/26/18 17:12 Lymph % (Auto) 6.0 % (13.4-35.0) L 12/26/18 17:12 [place] % (Auto) 4.7 % (0.0-7.3) 12/26/18 17:12 Eos % (Auto) 0.2 % (0.0-4.3) 12/26/18 17:12 Baso % (Auto) 0.5 % (0.0-1.8) 12/26/18 17:12 Lymph # 0.5 K/mm3 (1.2-5.4) L 12/26/18 17:12 [place] # 0.4 K/mm3 (0.0-0.8) 12/26/18 17:12 Eos # 0.0 K/mm3 (0.0-0.4) 12/26/18 17:12 Baso # 0.0 K/mm3 (0.0-0.1) 12/26/18 17:12 Seg Neutrophils % 88.6 % (40.0-70.0) H 12/26/18 17:12 Seg Neutrophils # 7.4 K/mm3 (1.8-7.7) 12/26/18 17:12 Sodium 131 mmol/L (137-145) L 12/26/18 17:12 Potassium 4.0 mmol/L (3.6-5.0) 12/26/18 17:12 Chloride 92.7 mmol/L (98-107) L 12/26/18 17:12 Carbon Dioxide 24 mmol/L (22-30) 12/26/18 17:12 18 mmol/L 12/26/18 17:12 BUN 38 mg/dL (9-20) H 12/26/18 17:12 5.0 mg/dL (0.8-1.5) H 12/26/18 17:12 Estimated GFR 14 ml/min 12/26/18 17:12 8 % 12/26/18 17:12 Glucose 100 mg/dL (75-100) 12/26/18 17:12 Lactic Acid 1.50 mmol/L (0.7-2.0) 12/26/18 17:12 Calcium 9.8 mg/dL (8.4-10.2) 12/26/18 17:12 0.50 mg/dL (0.1-1.2) 12/26/18 17:12 AST 8 units/L (5-40) 12/26/18 17:12 ALT < 5 units/L (7-56) L 12/26/18 17:12 109 units/L (35-129) 12/26/18 17:12 29 units/L (55-170) L 12/26/18 17:12 0.158 ng/mL (0.00-0.029) H* 12/26/18 17:12 6.1 g/dL (6.3-8.2) L 12/26/18 17:12 2.5 g/dL (3.9-5) L 12/26/18 17:12 0.7 % 12/26/18 17:12 Triglycerides 75 mg/dL (2-149) 12/26/18 17:12 Cholesterol 109 mg/dL (50-199) 12/26/18 17:12 43 mg/dL (50-130) L 12/26/18 17:12 41 mg/dL (40-59) 12/26/18 17:12 2.65 % 12/26/18 17:12 Short CBC 12/26/18 Range/Units 17:12 WBC 8.3 (4.5-11.0) K/mm3 Hgb 10.1 L (11.8-15.2) gm/dl Hct 32.2 L (35.5-45.6) % Plt Count 124 L (140-440) K/mm3 BMP 12/26/18 17:12 Sodium 131 L Potassium 4.0 Chloride 92.7 L Carbon Dioxide 24 BUN 38 H Creatinine 5.0 H Glucose 100 Calcium 9.8 Cardiac Enzymes 12/26/18 12/26/18 Range/Units 17:12 17:12 Total Creatine Kinase 29 L (55-170) units/L Troponin T 0.158 H* (0.00-0.029) ng/mL Liver Function 12/26/18 Range/Units 17:12 Total Bilirubin 0.50 (0.1-1.2) mg/dL AST 8 (5-40) units/L ALT < 5 L (7-56) units/L Alkaline Phosphatase 109 (35-129) units/L Albumin 2.5 L (3.9-5) g/dL - Imaging and Cardiology EKG: report reviewed (atrial flutter heart failure 122/m) Chest x-ray: report reviewed Imaging and Cardiology: CT head IMPRESSION: No acute CVA, intracranial bleed, or brain mass Multiple small fluid level in left mastoid air cells inferiorly may reflect eustachian tube dysfunction. Differential includes acute left mastoiditis Stable bilateral chronic-appearing infarcts Chest x-ray IMPRESSION: 1. Enlarged cardiac silhouette with bilateral interstitial and airspace process and evidence of pulmonary venous congestion. This most likely represents CHF. However, an infectious component cannot entirely be excluded. 2. Central venous catheter with tip projected in the region of the superior vena cava. 3. Loop recorder. This document is electronically signed by Ana Cee MD., December 26 2018 07:03:42 PM ET Assessment and Plan Advance Directives: Yes (full code) VTE prophylaxis?: Chemical Plan of care discussed with patient/family: Yes - Patient Problems (1) Acute encephalopathy Current Visit: Yes Status: Acute Plan to address problem: Secondary to uremia Patient needs hemodialysis Nephrology consulted (2) Acute exacerbation of CHF (congestive heart failure) Current Visit: Yes Status: Acute Qualifiers: Heart failure type: combined systolic and diastolic Qualified Code(s): I50.43 - Acute on chronic combined systolic (congestive) and diastolic (congestive) heart failure Plan to address problem: We will get echocardiogram if it was not done recently Increased ultrafiltration further CHF (3) ESRD needing dialysis Current Visit: Yes Status: Chronic Plan to address problem: Continue hemo dialysis (4) Insulin dependent diabetes mellitus Current Visit: Yes Status: Chronic Plan to address problem: Continue insulin coverage Check hemoglobin A1c (5) Hypertension Current Visit: Yes Status: Chronic Qualifiers: Hypertension type: essential hypertension Qualified Code(s): I10 - Essential (primary) hypertension Plan to address problem: Continue antihypertensives (6) Peripheral neuropathy Current Visit: Yes Status: Chronic Qualifiers: Peripheral neuropathy type: polyneuropathy, unspecified Qualified Code(s): G62.9 - Polyneuropathy, unspecified Plan to address problem: Continue gabapentin (7) Anemia Current Visit: Yes Status: Chronic Qualifiers: Anemia type: due to chronic kidney disease Chronic kidney disease stage: on chronic dialysis Qualified Code(s): N18.6 - End stage renal disease; D63.1 - Anemia in chronic kidney disease; Z99.2 - Dependence on renal dialysis Plan to address problem: Continue epoetin (8) Elevated lactic acid level Current Visit: Yes Status: Acute Plan to address problem: Sepsis unlikely (9) Elevated troponin Current Visit: Yes Status: Chronic Plan to address problem: Secondary to end-stage renal disease (10) DVT prophylaxis Current Visit: Yes Status: Acute Plan to address problem: On heparin and GI prophylaxis
[2018-12-26] MEDS ORDERED: TYLENOL PO PRN (21:37)
[2018-12-26] MEDS ORDERED: GLUCAGON HUMAN RECOMBINANT 1 MG IJ PRN (21:37)
[2018-12-26] MEDS ORDERED: ZOFRAN IV PRN (21:40)
[2018-12-26] MEDS ORDERED: DILAUDID IV PRN (21:40)
[2018-12-26] MEDS ORDERED: GLUCAGEN IV PRN (21:55)
[2018-12-26] MEDS ORDERED: PROTEIN HYDROLYS PO SCH (22:00)
[2018-12-26] MEDS ORDERED: AMINO ACIDS PO SCH (22:00)
[2018-12-26] MEDS ORDERED: HumaLOG SUB-Q ONE (22:15)
[2018-12-26] MEDS: SODIUM CHLORIDE FLUSH SYRINGE 10 ML IV SCH (23:06)
[2018-12-26] MEDS ORDERED: COLACE ONE (23:14)
[2018-12-26] MEDS ORDERED: LOPRESSOR ONE (23:14)
[2018-12-26] MEDS ORDERED: APRESOLINE ONE (23:15)
[2018-12-26] MEDS: APRESOLINE PO SCH (23:17)
[2018-12-27 07:42] LABS: Albumin 2.5 g/dL (3.9-5); BUN/Creatinine Ratio 8; Blood Urea Nitrogen 42 mg/dL (9-20); Calcium 9.7 mg/dL (8.4-10.2); Hemolysis Index 92
[2018-12-27] MEDS: RENVELA PO SCH (08:00)
[2018-12-27 08:05] LABS: Hematocrit 29.4 % (35.5-45.6); Hemoglobin 9.2 gm/dl (11.8-15.2); Mean Corpuscular HGB Conc 31 % (32-34); Mean Corpuscular Volume 82 fl (84-94); Platelet Count 128 K/mm3 (140-440)
[2018-12-27 08:11] LABS: Red Cell Distribution Width 20.9 % (13.2-15.2)
[2018-12-27 09:26] LABS: Alanine Aminotransferase < 5 units/L (7-56)
[2018-12-27] MEDS: FOLVITE PO SCH (10:00)
[2018-12-27] MEDS: COLACE PO SCH ×2 (10:00→22:21)
[2018-12-27] MEDS: RisperDAL PO SCH ×2 (10:00→22:21)
[2018-12-27] MEDS: MIRALAX 3350 PO SCH (10:00)
[2018-12-27] MEDS: LOPRESSOR PO SCH ×2 (10:00→22:21)
[2018-12-27] MEDS ORDERED: NACL 0.9% 100 ML IV PRN (10:00)
[2018-12-27] MEDS: HALFPRIN EC PO SCH (10:00)
[2018-12-27] MEDS: PEPCID PO SCH (10:00)
[2018-12-27] MEDS: ZOLOFT PO SCH (10:00)
[2018-12-27] MEDS ORDERED: NACL 0.9 (PRIMING MACHINE ONLY DIALYSIS) MC ONE (12:43)
--- NOTE | 2018-12-27 13:35 | Progress Note ---
Assessment and Plan Assessment and plan: 63-year-old -[place] male with multiple medical problems sent from [facility] for altered sensorium and decreased responsiveness. Patient end-stage renal disease hypertension insulin-dependent diabetes COPD and CHF. No fever or chills. Decreased responsive and not eating at all for the last 36 hours. No shortness of breath. No chest pain. Patient has failure to thrive, altered mentation and weight loss of 20 pounds since 12/08/2018. (1) Acute encephalopathy Secondary to uremia Patient is on HD Nephrology consult appreciated (2) Acute exacerbation of CHF (congestive heart failure) Increased ultrafiltration further CHF (3) ESRD needing dialysis Continue hemo dialysis (4) Insulin dependent diabetes mellitus - A1c is 4.2 - will DC the SSI (5) Hypertension Continue antihypertensives (6) Peripheral neuropathy Continue gabapentin (7) Anemia Continue epoetin (8) Elevated lactic acid level Sepsis unlikely resolved (9) Elevated troponin Secondary to end-stage renal disease (10) DVT prophylaxis On heparin and GI prophylaxis FTT, malnutrition - OG/NG tube ordered - Consulted dietitian for starting of tube feeding. History Interval history: Patient was seen and evaluated this morning, patient was lethargic and non communicative. Hospitalist Physical - Physical exam Narrative exam: Not in cardiopulmonary distress. The patient appeared well nourished and normally developed. Vital signs as documented. Head exam is unremarkable. No scleral icterus . Neck is without jugular venous distension, thyromegaly, or carotid bruits. Lungs are clear to auscultation. Cardiac exam reveals regular rate and Rhythm. First and second heart sounds normal. No murmurs, rubs or gallops. Abdominal exam reveals normal bowel sounds, no masses, no organomegaly and no aortic enlargement. Extremities are nonedematous and both femoral and pedal pulses are normal. 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 - Constitutional Vitals: Temp Pulse Resp BP Pulse Ox 97.8 F 107 H 16 148/74 100 12/27/18 11:00 12/27/18 12:30 12/27/18 11:00 12/27/18 12:30 12/27/18 08:29 General appearance: Present: no acute distress, cachectic, disheveled Results - Labs CBC & Chem 7: 12/27/18 07:04 12/27/18 07:04 Labs: Laboratory Last Values WBC 10.6 K/mm3 (4.5-11.0) 12/27/18 07:04 RBC 3.60 M/mm3 (3.65-5.03) L 12/27/18 07:04 Hgb 9.2 gm/dl (11.8-15.2) L 12/27/18 07:04 Hct 29.4 % (35.5-45.6) L 12/27/18 07:04 MCV 82 fl (84-94) L 12/27/18 07:04 MCH 26 pg (28-32) L 12/27/18 07:04 MCHC 31 % (32-34) L 12/27/18 07:04 RDW 20.9 % (13.2-15.2) H 12/27/18 07:04 Plt Count 128 K/mm3 (140-440) L 12/27/18 07:04 Lymph % (Auto) Brush Filler Hand 12/27/18 07:04 [place] % (Auto) Brush Filler Hand 12/27/18 07:04 Eos % (Auto) Brush Filler Hand 12/27/18 07:04 Baso % (Auto) Brush Filler Hand 12/27/18 07:04 Lymph # Brush Filler Hand 12/27/18 07:04 [place] # Brush Filler Hand 12/27/18 07:04 Eos # Brush Filler Hand 12/27/18 07:04 Baso # Brush Filler Hand 12/27/18 07:04 Seg Neutrophils % Brush Filler Hand 12/27/18 07:04 Seg Neutrophils # Brush Filler Hand 12/27/18 07:04 Sodium 130 mmol/L (137-145) L 12/27/18 07:04 Potassium 4.6 mmol/L (3.6-5.0) 12/27/18 07:04 Chloride 90.9 mmol/L (98-107) L 12/27/18 07:04 Carbon Dioxide 22 mmol/L (22-30) 12/27/18 07:04 22 mmol/L 12/27/18 07:04 BUN 42 mg/dL (9-20) H 12/27/18 07:04 5.6 mg/dL (0.8-1.5) H 12/27/18 07:04 Estimated GFR 12 ml/min 12/27/18 07:04 8 % 12/27/18 07:04 Glucose 97 mg/dL (75-100) 12/27/18 07:04 POC Glucose 95 (70-105) 12/27/18 08:34 < 4.2 % (4-6) 12/26/18 17:12 Lactic Acid 1.10 mmol/L (0.7-2.0) 12/27/18 07:04 Calcium 9.7 mg/dL (8.4-10.2) 12/27/18 07:04 0.50 mg/dL (0.1-1.2) 12/27/18 07:04 AST 12 units/L (5-40) 12/27/18 07:04 ALT < 5 units/L (7-56) L 12/27/18 07:04 103 units/L (35-129) 12/27/18 07:04 29 units/L (55-170) L 12/26/18 17:12 0.158 ng/mL (0.00-0.029) H* 12/26/18 17:12 6.5 g/dL (6.3-8.2) 12/27/18 07:04 2.5 g/dL (3.9-5) L 12/27/18 07:04 0.6 % 12/27/18 07:04 Triglycerides 75 mg/dL (2-149) 12/26/18 17:12 Cholesterol 109 mg/dL (50-199) 12/26/18 17:12 43 mg/dL (50-130) L 12/26/18 17:12 41 mg/dL (40-59) 12/26/18 17:12 2.65 % 12/26/18 17:12 Active Medications - Current Medications Current Medications: Generic Name Dose Route Start Last Admin Trade Name Freq PRN Reason Stop Dose Admin Acetaminophen 650 mg 12/26/18 21:40 Tylenol PO Q4H PRN Pain MILD(1-3)/Fever >100.5/HILL Aspirin 81 mg 12/27/18 10:00 12/27/18 10:00 Halfprin Ec PO Not Given DAILY SANCHEZ Docusate Sodium 100 mg 12/26/18 22:00 12/27/18 10:00 Colace PO Not Given BID SANCHEZ Famotidine 20 mg 12/27/18 10:00 12/27/18 10:00 Pepcid PO Not Given DAILY SANCHEZ Folic Acid 1 mg 12/27/18 10:00 12/27/18 10:00 Folvite PO Not Given DAILY SANCHEZ Gabapentin 100 mg 12/26/18 22:00 Neurontin PO QHS [facility] Glucagon 1 mg 12/26/18 21:55 Glucagen IV Q15M PRN Hypoglycemia (BG < 70) Heparin Sodium (Porcine) 5,000 unit 12/26/18 22:00 Heparin SUB-Q Q12HR SANCHEZ Hydralazine HCl 100 mg 12/26/18 22:00 12/26/18 23:17 Apresoline PO 100 mg Q8HR SANCHEZ Administration Hydromorphone HCl 0.25 mg 12/26/18 21:40 Dilaudid IV Q3H PRN Pain, Moderate (4-6) Sodium Chloride 100 mls @ 999 mls/hr 12/27/18 10:00 Nacl 0.9% IV UMA PRN Hypotension Metoprolol Tartrate 50 mg 12/26/18 22:00 12/27/18 10:00 Lopressor PO Not Given BID [facility] Ondansetron HCl 4 mg 12/26/18 21:40 Zofran IV Q8H PRN Nausea And Vomiting Polyethylene Glycol 17 gm 12/27/18 10:00 12/27/18 10:00 Miralax 3350 PO Not Given QDAY [facility] Risperidone 0.5 mg 12/26/18 22:00 Risperdal PO QHS [facility] Risperidone 1 mg 12/27/18 10:00 12/27/18 10:00 Risperdal PO Not Given QAM [facility] Sertraline HCl 100 mg 12/27/18 10:00 12/27/18 10:00 Zoloft PO Not Given QDAY [facility] Sevelamer Carbonate 800 mg 12/27/18 08:00 12/27/18 08:00 Renvela PO Not Given TIDWM SANCHEZ Sodium Chloride 10 ml 12/26/18 22:00 12/26/18 23:06 Sodium Chloride Flush Syringe 10 Ml IV 10 ml BID SANCHEZ Administration Sodium Chloride 10 ml 12/26/18 21:40 Sodium Chloride Flush Syringe 10 Ml IV PRN PRN LINE FLUSH
[2018-12-27] MEDS ORDERED: SODIUM BICARBONATE FEEDTUBE PRN (17:37)
[2018-12-27] MEDS ORDERED: SIMPLE SYRUP FEEDTUBE PRN ×2 (17:37)
[2018-12-27] MEDS ORDERED: PANCREAZE DR 10,500 UNIT FEEDTUBE PRN (17:37)
--- NOTE | 2018-12-27 18:55 | Progress Note ---
Subjective Date of service: 12/27/18 Objective - Vital Signs Vital signs: Vital Signs - 12hr 12/27/18 12/27/18 12/27/18 08:29 11:00 11:15 Temperature 98.0 F 97.8 F Pulse Rate 144 H 108 H 104 H Respiratory 16 16 Rate Blood Pressure 157/94 148/33 144/89 O2 Sat by Pulse 100 Oximetry 12/27/18 12/27/18 12/27/18 11:30 11:45 12:00 Temperature Pulse Rate 94 H 94 H 107 H Respiratory Rate Blood Pressure 135/94 141/86 144/82 O2 Sat by Pulse Oximetry 12/27/18 12/27/18 12/27/18 12:15 12:30 12:45 Temperature Pulse Rate 107 H 107 H 107 H Respiratory Rate Blood Pressure 151/86 148/74 147/84 O2 Sat by Pulse Oximetry 12/27/18 12/27/18 12/27/18 13:00 13:15 13:30 Temperature Pulse Rate 100 H 107 H 104 H Respiratory Rate Blood Pressure 146/85 149/82 144/85 O2 Sat by Pulse Oximetry 12/27/18 12/27/18 12/27/18 13:45 14:00 14:15 Temperature Pulse Rate 111 H 114 H 119 H Respiratory Rate Blood Pressure 146/85 161/80 150/88 O2 Sat by Pulse Oximetry 12/27/18 12/27/18 12/27/18 14:30 14:45 15:00 Temperature 98.4 F Pulse Rate 117 H 117 H 117 H Respiratory 16 Rate Blood Pressure 134/69 153/83 152/84 O2 Sat by Pulse Oximetry 12/27/18 16:00 Temperature 97.5 F L Pulse Rate 133 H Respiratory 16 Rate Blood Pressure 160/97 O2 Sat by Pulse 100 Oximetry - Lab 12/27/18 07:04 12/27/18 07:04 Most recent lab results Calcium 9.7 mg/dL (8.4-10.2) 12/27/18 07:04 Medications & Allergies - Medications Allergies/Adverse Reactions: Allergies haloperidol [From Haldol] Adverse Reaction (Verified 03/13/18 12:10) Unknown haloperidol lactate [From Haldol] Adverse Reaction (Verified 03/13/18 12:10) Unknown Home Medications: Home Medications Medication Instructions Recorded Confirmed Last Taken Type risperiDONE [RisperDAL] 1 mg PO QAM 03/13/18 12/27/18 Unknown History Sertraline [Zoloft] 100 mg PO QDAY 08/26/18 12/27/18 Unknown History risperiDONE [RisperDAL] 0.5 mg PO HS 08/26/18 12/27/18 Unknown History Polyethylene Glycol 3350 [Miralax 17 gm PO QDAY #30 packet 11/05/18 12/27/18 Unknown Rx 3350] Aspirin EC 81 mg PO DAILY #30 11/19/18 12/27/18 Unknown Rx Docusate Sodium [Colace CAP] 100 mg PO BID #60 11/19/18 12/27/18 Unknown Rx Folic Acid [Folvite] 1 mg PO DAILY #30 tab 11/19/18 12/27/18 Unknown Rx Famotidine [Pepcid] 20 mg PO DAILY tablet 12/08/18 12/27/18 Unknown Rx Gabapentin [Neurontin] 100 mg PO QHS capsule 12/08/18 12/27/18 Unknown Rx Metoprolol [Lopressor TAB] 50 mg PO BID 30 Days tablet 12/08/18 12/27/18 Unknown Rx Sevelamer Carbonate [Renvela] 800 mg PO TIDWM tablet 12/08/18 12/27/18 Unknown Rx hydrALAZINE [Apresoline TAB] 100 mg PO Q8HR #120 tablet 12/08/18 12/27/18 Unknown Rx Acetaminophen [Acetaminophen TAB] 650 mg PO Q12H PRN 12/15/18 12/27/18 Unknown History Amino Acids/Protein Hydrolys 30 ml PO BID 12/15/18 12/27/18 Unknown History [Pro-Stat Sugar Free Liquid] Glucagon,Human Recombinant 1 mg IJ Q15MIN PRN 12/15/18 12/27/18 Unknown History [Glucagon Emergency Kit] Insulin Aspart [NovoLOG 100 See Protocol SQ QWEEK 12/15/18 12/27/18 Unknown History UNITS/ML VIAL] Epoetin Solitario 10,000 Unit [Procrit] 10,000 unit IV UMA PRN vial 12/18/18 12/27/18 Unknown Rx Lispro Insulin [HumaLOG] 0 unit SUB-Q ACHS units 12/18/18 12/27/18 Unknown Rx risperiDONE [RisperDAL] 0.5 mg PO QHS tablet 12/18/18 12/27/18 Unknown Rx Active Medications: Generic Name Dose Route Start Last Admin Trade Name Ismael PRN Reason Stop Dose Admin Acetaminophen 650 mg 12/26/18 21:40 Tylenol PO Q4H PRN Pain MILD(1-3)/Fever >100.5/HILL Lipase/Protease/Amylase 1 each 12/27/18 17:37 Pancrejewel Barrientos 10,500 Unit FEEDTUBE PRN PRN For Clogged Feeding Tube Aspirin 81 mg 12/27/18 10:00 12/27/18 10:00 Halfprin Ec PO Not Given DAILY [facility] Docusate Sodium 100 mg 12/26/18 22:00 12/27/18 10:00 Colace PO Not Given BID [facility] Famotidine 20 mg 12/27/18 10:00 12/27/18 10:00 Pepcid PO Not Given DAILY [facility] Folic Acid 1 mg 12/27/18 10:00 12/27/18 10:00 Folvite PO Not Given DAILY [facility] Gabapentin 100 mg 12/26/18 22:00 Neurontin PO QHS [facility] Glucagon 1 mg 12/26/18 21:55 Glucagen IV Q15M PRN Hypoglycemia (BG < 70) Heparin Sodium (Porcine) 5,000 unit 12/26/18 22:00 Heparin SUB-Q Q12HR [facility] Hydralazine HCl 100 mg 12/26/18 22:00 12/26/18 23:17 Apresoline PO 100 mg Q8HR [facility] Administration Hydromorphone HCl 0.25 mg 12/26/18 21:40 Dilaudid IV Q3H PRN Pain, Moderate (4-6) Sodium Chloride 100 mls @ 999 mls/hr 12/27/18 10:00 Nacl 0.9% IV UMA PRN Hypotension Metoprolol Tartrate 50 mg 12/26/18 22:00 12/27/18 10:00 Lopressor PO Not Given BID [facility] Ondansetron HCl 4 mg 12/26/18 21:40 Zofran IV Q8H PRN Nausea And Vomiting Polyethylene Glycol 17 gm 12/27/18 10:00 12/27/18 10:00 Miralax 3350 PO Not Given QDAY [facility] Risperidone 0.5 mg 12/26/18 22:00 Risperdal PO QHS [facility] Risperidone 1 mg 12/27/18 10:00 12/27/18 10:00 Risperdal PO Not Given QAM [facility] Sertraline HCl 100 mg 12/27/18 10:00 12/27/18 10:00 Zoloft PO Not Given QDAY [facility] Sevelamer Carbonate 800 mg 12/27/18 08:00 12/27/18 08:00 Renvela PO Not Given TIDWM [facility] Simple Syrup 15 ml 12/27/18 17:37 Simple Syrup FEEDTUBE PRN PRN Hypoglycemia Simple Syrup 30 ml 12/27/18 17:37 Simple Syrup FEEDTUBE PRN PRN Hypoglycemia Sodium Bicarbonate 325 mg 12/27/18 17:37 Sodium Bicarbonate FEEDTUBE PRN PRN For Clogged Feeding Tube Sodium Chloride 10 ml 12/26/18 22:00 12/26/18 23:06 Sodium Chloride Flush Syringe 10 Ml IV 10 ml BID [facility] Administration Sodium Chloride 10 ml 12/26/18 21:40 Sodium Chloride Flush Syringe 10 Ml IV PRN PRN LINE FLUSH
[2018-12-27] MEDS: LOPRESSOR IV PRN (19:41)
[2018-12-27] MEDS: HEPARIN SUB-Q SCH (22:16)
[2018-12-27] MEDS: SODIUM CHLORIDE FLUSH SYRINGE 10 ML IV SCH (22:17)
[2018-12-27] MEDS: APRESOLINE PO SCH (22:21)
[2018-12-27] MEDS: NEURONTIN PO SCH (22:21)
[2018-12-28] MEDS: LOPRESSOR IV PRN ×2 (01:00→18:49)
--- NOTE | 2018-12-28 05:58 | Consultation ---
History of Present Illness - Reason for Consult Consult date: 12/27/18 end stage renal disease - History of Present Illness Mr. Mims is a 63-year-old male who presented to the ED from [facility] for altered mental status and decreased oral intake associated with weight loss. SNF reported that patient had been altered w/ dcreased responsiveness and poor po intake for 3-4 days. Past History Past Medical History: atrial fib, CAD, diabetes, ESRD, stroke, other (schizophrenia) Past Surgical History: Other (AV access) Social history: other (Resides at [facility]) Family history: no significant family history Medications and Allergies Allergies Allergy/AdvReac Type Severity Reaction Status Date / Time haloperidol [From Haldol] AdvReac Unknown Verified 03/13/18 12:10 haloperidol lactate AdvReac Unknown Verified 03/13/18 12:10 [From Haldol] Home Medications Medication Instructions Recorded Confirmed Last Taken Type risperiDONE [RisperDAL] 1 mg PO QAM 03/13/18 12/27/18 Unknown History Sertraline [Zoloft] 100 mg PO QDAY 08/26/18 12/27/18 Unknown History risperiDONE [RisperDAL] 0.5 mg PO HS 08/26/18 12/27/18 Unknown History Polyethylene Glycol 3350 [Miralax 17 gm PO QDAY #30 packet 11/05/18 12/27/18 Unknown Rx 3350] Aspirin EC 81 mg PO DAILY #30 11/19/18 12/27/18 Unknown Rx Docusate Sodium [Colace CAP] 100 mg PO BID #60 11/19/18 12/27/18 Unknown Rx Folic Acid [Folvite] 1 mg PO DAILY #30 tab 11/19/18 12/27/18 Unknown Rx Famotidine [Pepcid] 20 mg PO DAILY tablet 12/08/18 12/27/18 Unknown Rx Gabapentin [Neurontin] 100 mg PO QHS capsule 12/08/18 12/27/18 Unknown Rx Metoprolol [Lopressor TAB] 50 mg PO BID 30 Days tablet 12/08/18 12/27/18 Unknown Rx Sevelamer Carbonate [Renvela] 800 mg PO TIDWM tablet 12/08/18 12/27/18 Unknown Rx hydrALAZINE [Apresoline TAB] 100 mg PO Q8HR #120 tablet 12/08/18 12/27/18 Unknown Rx Acetaminophen [Acetaminophen TAB] 650 mg PO Q12H PRN 12/15/18 12/27/18 Unknown History Amino Acids/Protein Hydrolys 30 ml PO BID 12/15/18 12/27/18 Unknown History [Pro-Stat Sugar Free Liquid] Glucagon,Human Recombinant 1 mg IJ Q15MIN PRN 12/15/18 12/27/18 Unknown History [Glucagon Emergency Kit] Insulin Aspart [NovoLOG 100 See Protocol SQ QWEEK 12/15/18 12/27/18 Unknown History UNITS/ML VIAL] Epoetin Solitario 10,000 Unit [Procrit] 10,000 unit IV UMA PRN vial 12/18/18 12/27/18 Unknown Rx Lispro Insulin [HumaLOG] 0 unit SUB-Q ACHS units 12/18/18 12/27/18 Unknown Rx risperiDONE [RisperDAL] 0.5 mg PO QHS tablet 12/18/18 12/27/18 Unknown Rx Active Meds: Active Medications Acetaminophen (Tylenol) 650 mg PO Q4H PRN PRN Reason: Pain MILD(1-3)/Fever >100.5/HILL Lipase/Protease/Amylase (Pancreaze Dr 10,500 Unit) 1 each FEEDTUBE PRN PRN PRN Reason: For Clogged Feeding Tube Aspirin (Halfprin Ec) 81 mg PO DAILY [facility] Last Admin: 12/27/18 10:00 Dose: Not Given Documented by: Docusate Sodium (Colace) 100 mg PO BID [facility] Last Admin: 12/27/18 22:21 Dose: Not Given Documented by: Famotidine (Pepcid) 20 mg PO DAILY [facility] Last Admin: 12/27/18 10:00 Dose: Not Given Documented by: Folic Acid (Folvite) 1 mg PO DAILY [facility] Last Admin: 12/27/18 10:00 Dose: Not Given Documented by: Gabapentin (Neurontin) 100 mg PO QHS [facility] Last Admin: 12/27/18 22:21 Dose: Not Given Documented by: Glucagon (Glucagen) 1 mg IV Q15M PRN PRN Reason: Hypoglycemia (BG < 70) Heparin Sodium (Porcine) (Heparin) 5,000 unit SUB-Q Q12HR [facility] Last Admin: 12/27/18 22:16 Dose: 5,000 unit Documented by: Hydralazine HCl (Apresoline) 100 mg PO Q8HR [facility] Last Admin: 12/27/18 22:21 Dose: Not Given Documented by: Hydromorphone HCl (Dilaudid) 0.25 mg IV Q3H PRN PRN Reason: Pain, Moderate (4-6) Sodium Chloride (Nacl 0.9%) 100 mls @ 999 mls/hr IV UMA PRN PRN Reason: Hypotension Metoprolol Tartrate (Lopressor) 50 mg PO BID [facility] Last Admin: 12/27/18 22:21 Dose: Not Given Documented by: Metoprolol Tartrate (Lopressor) 5 mg IV Q5MIN PRN PRN Reason: increased heart rate Last Admin: 12/28/18 01:00 Dose: 5 mg Documented by: Ondansetron HCl (Zofran) 4 mg IV Q8H PRN PRN Reason: Nausea And Vomiting Polyethylene Glycol (Miralax 3350) 17 gm PO QDAY [facility] Last Admin: 12/27/18 10:00 Dose: Not Given Documented by: Risperidone (Risperdal) 0.5 mg PO QHS [facility] Last Admin: 12/27/18 22:21 Dose: Not Given Documented by: Risperidone (Risperdal) 1 mg PO QAM [facility] Last Admin: 12/27/18 10:00 Dose: Not Given Documented by: Sertraline HCl (Zoloft) 100 mg PO QDAY [facility] Last Admin: 12/27/18 10:00 Dose: Not Given Documented by: Sevelamer Carbonate (Renvela) 800 mg PO TIDWM [facility] Last Admin: 12/27/18 08:00 Dose: Not Given Documented by: Simple Syrup (Simple Syrup) 15 ml FEEDTUBE PRN PRN PRN Reason: Hypoglycemia Simple Syrup (Simple Syrup) 30 ml FEEDTUBE PRN PRN PRN Reason: Hypoglycemia Sodium Bicarbonate (Sodium Bicarbonate) 325 mg FEEDTUBE PRN PRN PRN Reason: For Clogged Feeding Tube Sodium Chloride (Sodium Chloride Flush Syringe 10 Ml) 10 ml IV BID [facility] Last Admin: 12/27/18 22:17 Dose: 10 ml Documented by: Sodium Chloride (Sodium Chloride Flush Syringe 10 Ml) 10 ml IV PRN PRN PRN Reason: LINE FLUSH Review of Systems ROS unobtainable: due to mental status Exam - Vital Signs Vital signs: Vital Signs Temp Pulse Resp BP Pulse Ox 100.1 F H 125 H 17 88/44 100 12/26/18 17:21 12/26/18 17:21 12/26/18 17:21 12/26/18 17:21 12/26/18 17:21 - General Appearance General appearance: well-developed EENT: ATNC Respiratory: Clear to Ascultation Heart: regular, tachycardia Gastrointestinal: Present: normal. Absent: tenderness, distended Integumentary: warm and dry Neurologic: confused Musculoskeletal: Present: other (1+ edema) Psychiatric: cooperative Results - Lab Results 12/27/18 07:04 12/27/18 07:04 Most recent lab results Calcium 9.7 mg/dL (8.4-10.2) 12/27/18 07:04 Assessment and Plan Impression: * End stage renal disease * Failure to thrive * Schizophrenia * Chronic atrial fibrillation * Coronary artery disease * History of CVA * Hyponatremia * Anemia secondary to ESRD Plan: * Continue TTS schedule * UF as tolerated * Nutrition per primary team * Dose medications for renal function * Epogen TID prn
[2018-12-28] MEDS: APRESOLINE PO SCH ×3 (06:00→22:05)
[2018-12-28] MEDS: RENVELA PO SCH ×3 (08:46→16:46)
--- NOTE | 2018-12-28 10:17 | Progress Note ---
Assessment and Plan Assessment and plan: 63-year-old -[place] male with multiple medical problems sent from [facility] for altered sensorium and decreased responsiveness. Patient end-stage renal disease hypertension insulin-dependent diabetes COPD and CHF. No fever or chills. Decreased responsive and not eating at all for the last 36 hours. No shortness of breath. No chest pain. Patient has failure to thrive, altered mentation and weight loss of 20 pounds since 12/08/2018. Acute encephalopathy Secondary to uremia Patient is on HD Nephrology consult appreciated Acute exacerbation of CHF (congestive heart failure) Increased ultrafiltration further CHF ESRD needing dialysis Continue hemo dialysis Insulin dependent diabetes mellitus - A1c is 4.2 insulin was dc Hypertension Continuwe antihypertensives Peripheral neuropathy Continue gabapentin Anemia Continue epoetin Elevated lactic acid level Sepsis unlikely resolved Elevated troponin Secondary to end-stage renal disease DVT prophylaxis On heparin and GI prophylaxis FTT, malnutrition -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, cont oral diet, maitre d input appreciated History Interval history: continues to have weakness opens eyes and is verbal , no fevers, no vomiting, no seizures Hospitalist Physical - Physical exam Narrative exam: appears chronically ill Vital signs as documented. Head exam is unremarkable., opens eyes, says Fede, does not seem to understand his medical condition No scleral icterus . Neck is without jugular venous distension, thyromegaly, or carotid bruits. Lungs are clear to auscultation. Cardiac exam reveals regular rate and Rhythm. First and second heart sounds normal. No murmurs, rubs or gallops. Abdominal exam reveals normal bowel sounds, no masses, no organomegaly and no aortic enlargement. Extremities are nonedematous and both femoral and pedal pulses are normal. 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, only says Fede, unable to have complex conversation - Constitutional Vitals: Temp Pulse Resp BP Pulse Ox 98.6 F 103 H 20 182/95 100 12/28/18 07:26 12/28/18 07:26 12/28/18 07:26 12/28/18 07:26 12/28/18 07:26 General appearance: Present: no acute distress, cachectic, disheveled Results - Labs CBC & Chem 7: 01/07/19 00:45 01/07/19 11:16 Labs: Laboratory Last Values WBC 10.6 K/mm3 (4.5-11.0) 12/27/18 07:04 RBC 3.60 M/mm3 (3.65-5.03) L 12/27/18 07:04 Hgb 9.2 gm/dl (11.8-15.2) L 12/27/18 07:04 Hct 29.4 % (35.5-45.6) L 12/27/18 07:04 MCV 82 fl (84-94) L 12/27/18 07:04 MCH 26 pg (28-32) L 12/27/18 07:04 MCHC 31 % (32-34) L 12/27/18 07:04 RDW 20.9 % (13.2-15.2) H 12/27/18 07:04 Plt Count 128 K/mm3 (140-440) L 12/27/18 07:04 Lymph % (Auto) [employer]plane [employer] 12/27/18 07:04 Bracken % (Auto) [employer]plane [employer] 12/27/18 07:04 Eos % (Auto) [employer]plane Mechanic 12/27/18 07:04 Baso % (Auto) [employer]plane [employer]ic 12/27/18 07:04 Lymph # [employer] 12/27/18 07:04 Bracken # [employer]ic 12/27/18 07:04 Eos # [employer]plane Mechanic 12/27/18 07:04 Baso # [employer]ic 12/27/18 07:04 Seg Neutrophils % [employer]plane [employer]ic 12/27/18 07:04 Seg Neutrophils # Airplane Mechanic 12/27/18 07:04 Sodium 130 mmol/L (137-145) L 12/27/18 07:04 Potassium 4.6 mmol/L (3.6-5.0) 12/27/18 07:04 Chloride 90.9 mmol/L (98-107) L 12/27/18 07:04 Carbon Dioxide 22 mmol/L (22-30) 12/27/18 07:04 22 mmol/L 12/27/18 07:04 BUN 42 mg/dL (9-20) H 12/27/18 07:04 5.6 mg/dL (0.8-1.5) H 12/27/18 07:04 Estimated GFR 12 ml/min 12/27/18 07:04 8 % 12/27/18 07:04 Glucose 97 mg/dL (75-100) 12/27/18 07:04 POC Glucose 119 (70-105) H 12/27/18 16:10 < 4.2 % (4-6) 12/26/18 17:12 Lactic Acid 1.10 mmol/L (0.7-2.0) 12/27/18 07:04 Calcium 9.7 mg/dL (8.4-10.2) 12/27/18 07:04 0.50 mg/dL (0.1-1.2) 12/27/18 07:04 AST 12 units/L (5-40) 12/27/18 07:04 ALT < 5 units/L (7-56) L 12/27/18 07:04 103 units/L (35-129) 12/27/18 07:04 29 units/L (55-170) L 12/26/18 17:12 0.158 ng/mL (0.00-0.029) H* 12/26/18 17:12 6.5 g/dL (6.3-8.2) 12/27/18 07:04 2.5 g/dL (3.9-5) L 12/27/18 07:04 0.6 % 12/27/18 07:04 Triglycerides 75 mg/dL (2-149) 12/26/18 17:12 Cholesterol 109 mg/dL (50-199) 12/26/18 17:12 43 mg/dL (50-130) L 12/26/18 17:12 41 mg/dL (40-59) 12/26/18 17:12 2.65 % 12/26/18 17:12 Active Medications - Current Medications Current Medications: Generic Name Dose Route Start Last Admin Trade Name Freq PRN Reason Stop Dose Admin Acetaminophen 650 mg 12/26/18 21:40 Tylenol PO Q4H PRN Pain MILD(1-3)/Fever >100.5/HILL Lipase/Protease/Amylase 1 each 12/27/18 17:37 Pancreaze 10,500 Unit FEEDTUBE PRN PRN For Clogged Feeding Tube Aspirin 81 mg 12/27/18 10:00 12/27/18 10:00 Halfprin Ec PO Not Given DAILY [facility] Docusate Sodium 100 mg 12/26/18 22:00 12/27/18 22:21 Colace PO Not Given BID [facility] Famotidine 20 mg 12/27/18 10:00 12/27/18 10:00 Pepcid PO Not Given DAILY [facility] Folic Acid 1 mg 12/27/18 10:00 12/27/18 10:00 Folvite PO Not Given DAILY [facility] Gabapentin 100 mg 12/26/18 22:00 12/27/18 22:21 Neurontin PO Not Given QHS [facility] Glucagon 1 mg 12/26/18 21:55 Glucagen IV Q15M PRN Hypoglycemia (BG < 70) Heparin Sodium (Porcine) 5,000 unit 12/26/18 22:00 12/27/18 22:16 Heparin SUB-Q 5,000 unit Q12HR [facility] Administration Hydralazine HCl 100 mg 12/26/18 22:00 12/27/18 22:21 Apresoline PO Not Given Q8HR [facility] Hydromorphone HCl 0.25 mg 12/26/18 21:40 Dilaudid IV Q3H PRN Pain, Moderate (4-6) Sodium Chloride 100 mls @ 999 mls/hr 12/27/18 10:00 Nacl 0.9% IV UMA PRN Hypotension Metoprolol Tartrate 50 mg 12/26/18 22:00 12/27/18 22:21 Lopressor PO Not Given BID [facility] Metoprolol Tartrate 5 mg 12/27/18 18:55 12/28/18 01:00 Lopressor IV 5 mg Q5MIN PRN Administration increased heart rate Ondansetron HCl 4 mg 12/26/18 21:40 Zofran IV Q8H PRN Nausea And Vomiting Polyethylene Glycol 17 gm 12/27/18 10:00 12/27/18 10:00 Miralax 3350 PO Not Given QDAY [facility] Risperidone 0.5 mg 12/26/18 22:00 12/27/18 22:21 Risperdal PO Not Given QHS [facility] Risperidone 1 mg 12/27/18 10:00 12/27/18 10:00 Risperdal PO Not Given QAM [facility] Sertraline HCl 100 mg 12/27/18 10:00 12/27/18 10:00 Zoloft PO Not Given QDAY [facility] Sevelamer Carbonate 800 mg 12/27/18 08:00 12/27/18 08:00 Renvela PO Not Given TIDWM [facility] Simple Syrup 15 ml 12/27/18 17:37 Simple Syrup FEEDTUBE PRN PRN Hypoglycemia Simple Syrup 30 ml 12/27/18 17:37 Simple Syrup FEEDTUBE PRN PRN Hypoglycemia Sodium Bicarbonate 325 mg 12/27/18 17:37 Sodium Bicarbonate FEEDTUBE PRN PRN For Clogged Feeding Tube Sodium Chloride 10 ml 12/26/18 22:00 12/27/18 22:17 Sodium Chloride Flush Syringe 10 Ml IV 10 ml BID [facility] Administration Sodium Chloride 10 ml 12/26/18 21:40 Sodium Chloride Flush Syringe 10 Ml IV PRN PRN LINE FLUSH Nutrition/Malnutrition Assess - Dietary Evaluation Nutrition/Malnutrition Findings: Nutrition Notes Start: 12/27/18 17:15 Freq: Status: Active Protocol: Document 12/27/18 17:15 RM (Rec: 12/27/18 17:37 RM [id number]) Nutrition Notes Need for Assessment generated from: MD Order Initial or Follow up Assessment Current Diagnosis COPD,Diabetes,Hypertension, Heart Failure Other Pertinent Diagnosis ESRD on HD (T/R/S), Acute encephalopathy, Sacral wound Current Diet NPO Labs/Tests Reviewed Pertinent Medications Reviewed Height 5 ft 7 in Weight 90.1 kg [place] Body Weight (kg) 67.27 BMI 31.1 Subjective/Other Information Consulted for TF recommendation. Screened for malnutrition, skin risk, and difficulty chewing. [place] 10 points. Pt from [place]. Pt not in room at time of visit. Burn Absent Trauma Absent #1 Nutrition Diagnosis Inadequate oral intake Etiology acute encephalopathy As Evidenced by Signs and Symptoms NPO status Is patient on ventilator? No Is Patient Ambulatory and/or Out of Bed No REE-([facility]-confined to bed) 1983.608 Kcal/Kg value to use for calculation 17 Approximate Energy Requirements Using 1532 kcal/Kg Calculation Used for Recommendations Kcal/kg Additional Notes Protein Needs: 95-119g (1.2-1 .5g/kg 79kg adjBW) Fluid Needs: 1 ml/kcal Nutrition Intervention Nutrition Support: Nepro at 40 ml/hr. Water flush of 150 mls q 4 hrs . Kcal 1,728 Protein (gm) 78 Fluid (mL) 698 Goal #1 Meet at least 75% of calorie and protein needs via TF Anticipated Discharge Needs: Unable to determine at this time Follow-Up By: 12/29/18 Additional Comments Follow for new TF
[2018-12-28] MEDS: LOPRESSOR PO SCH ×2 (10:32→22:05)
[2018-12-28] MEDS: COLACE PO SCH ×2 (10:32→22:05)
[2018-12-28] MEDS: SODIUM CHLORIDE FLUSH SYRINGE 10 ML IV SCH ×2 (10:45→22:05)
[2018-12-28] MEDS: FOLVITE PO SCH (10:47)
[2018-12-28] MEDS: HALFPRIN EC PO SCH (10:47)
[2018-12-28] MEDS: MIRALAX 3350 PO SCH (10:47)
[2018-12-28] MEDS: PEPCID PO SCH (10:47)
[2018-12-28] MEDS: RisperDAL PO SCH ×2 (10:48→22:05)
[2018-12-28] MEDS: ZOLOFT PO SCH (10:48)
[2018-12-28] MEDS: HEPARIN SUB-Q SCH ×4 (11:45→22:08)
--- NOTE | 2018-12-28 12:45 | XRay Report ---
PROCEDURE: XR SHOULDER 2+V LT TECHNIQUE: 3 views obtained HISTORY: left shoulder pain COMPARISONS: No priors FINDINGS: No acute fracture or dislocation. Degenerative changes of the acromioclavicular joint. Questionable lucent lesion in the humeral head with mildly sclerotic borders. Consider further evaluation with CT. Vascular stent along the proximal left arm. IMPRESSION: No acute fracture or dislocation. Degenerative changes of the acromioclavicular joint. Questionable lucent lesion in the humeral head with mildly sclerotic borders. Consider further evalua tion with CT.. This document is electronically signed by Ashok Ha MD., December 28 2018 12:43:54 PM ET
--- NOTE | 2018-12-28 14:37 | Progress Note ---
Assessment and Plan Impression: * End stage renal disease * Failure to thrive * Schizophrenia * Chronic atrial fibrillation * Coronary artery disease * History of CVA * Hyponatremia * Anemia secondary to ESRD Plan: * Patient is s/p dialysis yesterda. No acute indication for HD today * Continue TTS schedule * UF as tolerated * Nutrition per primary team - may need PEG * Dose medications for renal function * Epogen TID prn Subjective Date of service: 12/28/18 Interval history: Patient has no complaints today. Objective - Vital Signs Vital signs: Vital Signs - 12hr 12/28/18 12/28/18 12/28/18 05:35 05:42 07:26 Temperature 98.2 F 98.6 F Pulse Rate 97 H 61 103 H Respiratory 18 20 Rate Blood Pressure 158/91 182/95 Blood Pressure 158/91 [Right] O2 Sat by Pulse 100 100 100 Oximetry 12/28/18 13:04 Temperature 97.5 F L Pulse Rate 107 H Respiratory 18 Rate Blood Pressure 144/89 Blood Pressure [Right] O2 Sat by Pulse 100 Oximetry - General Appearance General appearance: well-developed EENT: ATNC Respiratory: Present: Clear to Ascultation Cardiology: regular, S1S2 Gastrointestinal: normal, no tenderness, no distended Neurologic: no focal deficit Musculoskeletal: other (no edema) Psychiatric: cooperative - Lab 12/27/18 07:04 12/27/18 07:04 Most recent lab results Calcium 9.7 mg/dL (8.4-10.2) 12/27/18 07:04 Medications & Allergies - Medications Allergies/Adverse Reactions: Allergies haloperidol [From Haldol] Adverse Reaction (Verified 03/13/18 12:10) Unknown haloperidol lactate [From Haldol] Adverse Reaction (Verified 03/13/18 12:10) Unknown Home Medications: Home Medications Medication Instructions Recorded Confirmed Last Taken Type risperiDONE [RisperDAL] 1 mg PO QAM 03/13/18 12/27/18 Unknown History Sertraline [Zoloft] 100 mg PO QDAY 08/26/18 12/27/18 Unknown History risperiDONE [RisperDAL] 0.5 mg PO HS 08/26/18 12/27/18 Unknown History Polyethylene Glycol 3350 [Miralax 17 gm PO QDAY #30 packet 11/05/18 12/27/18 Unknown Rx 3350] Aspirin EC 81 mg PO DAILY #30 11/19/18 12/27/18 Unknown Rx Docusate Sodium [Colace CAP] 100 mg PO BID #60 11/19/18 12/27/18 Unknown Rx Folic Acid [Folvite] 1 mg PO DAILY #30 tab 11/19/18 12/27/18 Unknown Rx Famotidine [Pepcid] 20 mg PO DAILY tablet 12/08/18 12/27/18 Unknown Rx Gabapentin [Neurontin] 100 mg PO QHS capsule 12/08/18 12/27/18 Unknown Rx Metoprolol [Lopressor TAB] 50 mg PO BID 30 Days tablet 12/08/18 12/27/18 Unknown Rx Sevelamer Carbonate [Renvela] 800 mg PO TIDWM tablet 12/08/18 12/27/18 Unknown Rx hydrALAZINE [Apresoline TAB] 100 mg PO Q8HR #120 tablet 12/08/18 12/27/18 Unknown Rx Acetaminophen [Acetaminophen TAB] 650 mg PO Q12H PRN 12/15/18 12/27/18 Unknown History Amino Acids/Protein Hydrolys 30 ml PO BID 12/15/18 12/27/18 Unknown History [Pro-Stat Sugar Free Liquid] Glucagon,Human Recombinant 1 mg IJ Q15MIN PRN 12/15/18 12/27/18 Unknown History [Glucagon Emergency Kit] Insulin Aspart [NovoLOG 100 See Protocol SQ QWEEK 12/15/18 12/27/18 Unknown History UNITS/ML VIAL] Epoetin Solitario 10,000 Unit [Procrit] 10,000 unit IV UMA PRN vial 12/18/18 12/27/18 Unknown Rx Lispro Insulin [HumaLOG] 0 unit SUB-Q ACHS units 12/18/18 12/27/18 Unknown Rx risperiDONE [RisperDAL] 0.5 mg PO QHS tablet 12/18/18 12/27/18 Unknown Rx Active Medications: Generic Name Dose Route Start Last Admin Trade Name Freq PRN Reason Stop Dose Admin Acetaminophen 650 mg 12/26/18 21:40 Tylenol PO Q4H PRN Pain MILD(1-3)/Fever >100.5/HILL Lipase/Protease/Amylase 1 each 12/27/18 17:37 Pancrejewel Barrientos 10,500 Unit FEEDTUBE PRN PRN For Clogged Feeding Tube Aspirin 81 mg 12/27/18 10:00 12/27/18 10:00 Halfprin Ec PO Not Given DAILY [facility] Docusate Sodium 100 mg 12/26/18 22:00 12/27/18 22:21 Colace PO Not Given BID [facility] Famotidine 20 mg 12/27/18 10:00 12/27/18 10:00 Pepcid PO Not Given DAILY [facility] Folic Acid 1 mg 12/27/18 10:00 12/27/18 10:00 Folvite PO Not Given DAILY [facility] Gabapentin 100 mg 12/26/18 22:00 12/27/18 22:21 Neurontin PO Not Given QHS [facility] Glucagon 1 mg 12/26/18 21:55 Glucagen IV Q15M PRN Hypoglycemia (BG < 70) Heparin Sodium (Porcine) 5,000 unit 12/26/18 22:00 12/27/18 22:16 Heparin SUB-Q 5,000 unit Q12HR [facility]ANC[facility]Z Administration Hydralazine HCl 100 mg 12/26/18 22:00 12/27/18 22:21 Apresoline PO Not Given Q8HR [facility] Hydromorphone HCl 0.25 mg 12/26/18 21:40 Dilaudid IV Q3H PRN Pain, Moderate (4-6) Sodium Chloride 100 mls @ 999 mls/hr 12/27/18 10:00 Nacl 0.9% IV UMA PRN Hypotension Metoprolol Tartrate 50 mg 12/26/18 22:00 12/27/18 22:21 Lopressor PO Not Given BID [facility] Metoprolol Tartrate 5 mg 12/27/18 18:55 12/28/18 01:00 Lopressor IV 5 mg Q5MIN PRN Administration increased heart rate Ondansetron HCl 4 mg 12/26/18 21:40 Zofran IV Q8H PRN Nausea And Vomiting Polyethylene Glycol 17 gm 12/27/18 10:00 12/27/18 10:00 Miralax 3350 PO Not Given QDAY [facility] Risperidone 0.5 mg 12/26/18 22:00 12/27/18 22:21 Risperdal PO Not Given QHS [facility] Risperidone 1 mg 12/27/18 10:00 12/27/18 10:00 Risperdal PO Not Given QAM [facility] Sertraline HCl 100 mg 12/27/18 10:00 12/27/18 10:00 Zoloft PO Not Given QDAY [facility] Sevelamer Carbonate 800 mg 12/27/18 08:00 12/27/18 08:00 Renvela PO Not Given TIDWM S[facility]Z Simple Syrup 15 ml 12/27/18 17:37 Simple Syrup FEEDTUBE PRN PRN Hypoglycemia Simple Syrup 30 ml 12/27/18 17:37 Simple Syrup FEEDTUBE PRN PRN Hypoglycemia Sodium Bicarbonate 325 mg 12/27/18 17:37 Sodium Bicarbonate FEEDTUBE PRN PRN For Clogged Feeding Tube Sodium Chloride 10 ml 12/26/18 22:00 12/27/18 22:17 Sodium Chloride Flush Syringe 10 Ml IV 10 ml BID SANCHEZ Administration Sodium Chloride 10 ml 12/26/18 21:40 Sodium Chloride Flush Syringe 10 Ml IV PRN PRN LINE FLUSH
[2018-12-28] MEDS: NEURONTIN PO SCH (22:05)
[2018-12-29] MEDS: LOPRESSOR IV PRN ×2 (00:26→05:41)
[2018-12-29] MEDS: APRESOLINE PO SCH ×4 (08:00→22:02)
--- NOTE | 2018-12-29 09:43 | Progress Note ---
Subjective Interval history: Patient was seen today for follow-up on multiple renal related issues Events of this hospitalization noted He will be needing hemodialysis treatment tomorrow Admitted with altered mental status poor appetite weight loss workup is in progress Patient denies having any chest pain pressure or shortness of breath Vitals labs intake output medications were reviewed Social history: Reviewed Allergies: Reviewed Family history: Reviewed Physical examination HEENT: Oral mucosa moist no pallor or icterus Neck: Supple no JVD Chest: Clear to auscultation anteriorly CVS: Regular rate and rhythm S1 and S2 heard Abdomen: Soft nontender no suprapubic masses no organomegaly appreciable Extremity: Dry skin less than 1+ peripheral edema Patient does have chronic swelling of his left upper extremity Dialysis catheter site: Unremarkable Musculoskeletal: No joint effusion noted in knees and ankle Neurological: Alert awake Dermatology: No petechial rashes Psychiatry: No evidence of any agitation and aggression noted Assessment and plan; End-stage renal disease: Continue with hemodialysis treatment on Saturday and Saturday schedule Current dialysis axis his central venous catheter which appears to be working well patient does have chronic swelling of the upper extremity and may benefit from a vascular surgical evaluation during this admission Due to poor appetite Renvela will be discontinued, due to his GI toxicity patient has also lost weight and will need further workup for that His mentation appears to be at baseline to me he is alert awake able to communicate that he is hungry denies any complaints of chest pain pressure or shortness of breath Monitor dialysis related labs including hemoglobin and hematocrit electrolyte potassium phosphorus and intact PTH Is overall long-term prognosis appears to be very poor due to age, dialysis status and multiple comorbidities Patient does have history of underlying dementia and has limited understanding of his health issues We'll continue with supportive care monitor dialysis related labs judicious ultrafiltration with hemodialysis More than 35 minutes were spent in direct patient care today, We'll continue to follow and make recommendation from renal standpoint Objective - Vital Signs Vital signs: Vital Signs - 12hr 12/29/18 12/29/18 12/29/18 00:11 00:26 05:05 Temperature 97.8 F 98.0 F Pulse Rate 125 H 125 H 121 H Respiratory 18 18 Rate Blood Pressure 175/100 175/100 173/97 Blood Pressure [Right] O2 Sat by Pulse 99 100 Oximetry 12/29/18 12/29/18 05:38 08:30 Temperature 97.0 F L Pulse Rate 127 H Respiratory 20 18 Rate Blood Pressure Blood Pressure 173/97 [Right] O2 Sat by Pulse 99 Oximetry - Lab 12/27/18 07:04 12/27/18 07:04 Most recent lab results Calcium 9.7 mg/dL (8.4-10.2) 12/27/18 07:04 Medications & Allergies - Medications Allergies/Adverse Reactions: Allergies haloperidol [From Haldol] Adverse Reaction (Verified 03/13/18 12:10) Unknown haloperidol lactate [From Haldol] Adverse Reaction (Verified 03/13/18 12:10) Unknown Home Medications: Home Medications Medication Instructions Recorded Confirmed Last Taken Type risperiDONE [RisperDAL] 1 mg PO QAM 03/13/18 12/27/18 Unknown History Sertraline [Zoloft] 100 mg PO QDAY 08/26/18 12/27/18 Unknown History risperiDONE [RisperDAL] 0.5 mg PO HS 08/26/18 12/27/18 Unknown History Polyethylene Glycol 3350 [Miralax 17 gm PO QDAY #30 packet 11/05/18 12/27/18 Unknown Rx 3350] Aspirin EC 81 mg PO DAILY #30 11/19/18 12/27/18 Unknown Rx Docusate Sodium [Colace CAP] 100 mg PO BID #60 11/19/18 12/27/18 Unknown Rx Folic Acid [Folvite] 1 mg PO DAILY #30 tab 11/19/18 12/27/18 Unknown Rx Famotidine [Pepcid] 20 mg PO DAILY tablet 12/08/18 12/27/18 Unknown Rx Gabapentin [Neurontin] 100 mg PO QHS capsule 12/08/18 12/27/18 Unknown Rx Metoprolol [Lopressor TAB] 50 mg PO BID 30 Days tablet 12/08/18 12/27/18 Unknown Rx Sevelamer Carbonate [Renvela] 800 mg PO TIDWM tablet 12/08/18 12/27/18 Unknown Rx hydrALAZINE [Apresoline TAB] 100 mg PO Q8HR #120 tablet 12/08/18 12/27/18 Unknown Rx Acetaminophen [Acetaminophen TAB] 650 mg PO Q12H PRN 12/15/18 12/27/18 Unknown History Amino Acids/Protein Hydrolys 30 ml PO BID 12/15/18 12/27/18 Unknown History [Pro-Stat Sugar Free Liquid] Glucagon,Human Recombinant 1 mg IJ Q15MIN PRN 12/15/18 12/27/18 Unknown History [Glucagon Emergency Kit] Insulin Aspart [NovoLOG 100 See Protocol SQ QWEEK 12/15/18 12/27/18 Unknown History UNITS/ML VIAL] Epoetin Solitario 10,000 Unit [Procrit] 10,000 unit IV UMA PRN vial 12/18/18 12/27/18 Unknown Rx Lispro Insulin [HumaLOG] 0 unit SUB-Q ACHS units 12/18/18 12/27/18 Unknown Rx risperiDONE [RisperDAL] 0.5 mg PO QHS tablet 12/18/18 12/27/18 Unknown Rx Active Medications: Generic Name Dose Route Start Last Admin Trade Name Freq PRN Reason Stop Dose Admin Acetaminophen 650 mg 12/26/18 21:40 Tylenol PO Q4H PRN Pain MILD(1-3)/Fever >100.5/HILL Lipase/Protease/Amylase 1 each 12/27/18 17:37 Pancreaze 10,500 Unit FEEDTUBE PRN PRN For Clogged Feeding Tube Aspirin 81 mg 12/27/18 10:00 12/28/18 10:47 Halfprin Ec PO Not Given DAILY [facility] Docusate Sodium 100 mg 12/26/18 22:00 12/28/18 22:05 Colace PO Not Given BID [facility] Famotidine 20 mg 12/27/18 10:00 12/28/18 10:47 Pepcid PO Not Given DAILY [facility] Folic Acid 1 mg 12/27/18 10:00 12/28/18 10:47 Folvite PO Not Given DAILY [facility] Gabapentin 100 mg 12/26/18 22:00 12/28/18 22:05 Neurontin PO Not Given QHS [facility] Glucagon 1 mg 12/26/18 21:55 Glucagen IV Q15M PRN Hypoglycemia (BG < 70) Heparin Sodium (Porcine) 5,000 unit 12/26/18 22:00 12/28/18 22:08 Heparin SUB-Q 5,000 unit Q12HR [facility]Z Administration Hydralazine HCl 100 mg 12/26/18 22:00 12/28/18 22:05 Apresoline PO Not Given Q8HR [facility] Hydromorphone HCl 0.25 mg 12/26/18 21:40 12/29/18 05:38 Dilaudid IV 0.25 mg Q3H PRN Administration Pain, Moderate (4-6) Sodium Chloride 100 mls @ 999 mls/hr 12/27/18 10:00 Nacl 0.9% IV UMA PRN Hypotension Metoprolol Tartrate 50 mg 12/26/18 22:00 12/28/18 22:05 Lopressor PO Not Given BID [facility] Metoprolol Tartrate 5 mg 12/27/18 18:55 12/29/18 05:41 Lopressor IV 5 mg Q5MIN PRN Administration increased heart rate Ondansetron HCl 4 mg 12/26/18 21:40 Zofran IV Q8H PRN Nausea And Vomiting Polyethylene Glycol 17 gm 12/27/18 10:00 12/28/18 10:47 Miralax 3350 PO Not Given QDAY [facility] Risperidone 0.5 mg 12/26/18 22:00 12/28/18 22:05 Risperdal PO Not Given QHS [facility] Risperidone 1 mg 12/27/18 10:00 12/28/18 10:48 Risperdal PO Not Given QAM [facility] Sertraline HCl 100 mg 12/27/18 10:00 12/28/18 10:48 Zoloft PO Not Given QDAY [facility] Sevelamer Carbonate 800 mg 12/27/18 08:00 12/28/18 16:46 Renvela PO Not Given TIDWM [facility] Simple Syrup 15 ml 12/27/18 17:37 Simple Syrup FEEDTUBE PRN PRN Hypoglycemia Simple Syrup 30 ml 12/27/18 17:37 Simple Syrup FEEDTUBE PRN PRN Hypoglycemia Sodium Bicarbonate 325 mg 12/27/18 17:37 Sodium Bicarbonate FEEDTUBE PRN PRN For Clogged Feeding Tube Sodium Chloride 10 ml 12/26/18 22:00 12/28/18 22:05 Sodium Chloride Flush Syringe 10 Ml IV Not Given BID [facility] Sodium Chloride 10 ml 12/26/18 21:40 Sodium Chloride Flush Syringe 10 Ml IV PRN PRN LINE FLUSH
[2018-12-29] MEDS: HEPARIN SUB-Q SCH ×3 (10:10→22:48)
[2018-12-29] MEDS: ZOLOFT PO SCH (12:29)
[2018-12-29] MEDS: TYLENOL PO PRN (12:29)
[2018-12-29] MEDS: HALFPRIN EC PO SCH (12:31)
[2018-12-29] MEDS: FOLVITE PO SCH (12:31)
[2018-12-29] MEDS: LOPRESSOR PO SCH ×4 (12:31→22:02)
[2018-12-29] MEDS: MIRALAX 3350 PO SCH (12:32)
[2018-12-29] MEDS: PEPCID PO SCH (12:32)
[2018-12-29] MEDS: SODIUM CHLORIDE FLUSH SYRINGE 10 ML IV SCH ×3 (12:33→22:04)
[2018-12-29] MEDS: COLACE PO SCH ×2 (12:44→22:03)
[2018-12-29] MEDS: RisperDAL PO SCH ×2 (12:46→22:02)
--- NOTE | 2018-12-29 12:55 | Consultation ---
History of Present Illness Consult date: 12/29/18 Requesting physician: LENO LAWTON Consult reason: congestive heart failure History of present illness: The pt is a 63 YO male alf resident with a past medical history of atrial fibrillation (poor candidate for long-term OAC in setting of mental status and multiple co-morbidities), loop recorder, ESRD on HD, DM, CVA, anemia, legally blind, ? dementia. He has been seen by our practice on prior hospitaliza tion. He is unable to provide HPI due to altered mental status and ? dementia and thus HPI is obtained per the chart. He presented on 12/26/2018 from alf for altered sensorium, decreased responsiveness and poor PO intake for approx 36 hours prior to arrival. Per the chart, pt has weight loss of 20 pounds since 12/08/2018. Cardiology has been consulted for HF. Echo done 12/16/2018 showed EF 35-40%, mild LVH, RV systolic function mod reduced, RA mildly dilated, pulm HTN with RVSP 53mmHg, large pleural effusion, markedly increased RA pressure. Echo done 02/2018 showed EF 40-45%, mild to mod LVH, RV mildly dilated, mild to mod TR. Past History Past Medical History: atrial fib, CAD, diabetes, ESRD, stroke, other (schizo phrenia) Past Surgical History: Other (AV access) Social history: other (Resides at SNF) Family history: no significant family history Medications and Allergies Allergies Allergy/AdvReac Type Severity Reaction Status Date / Time haloperidol [From Haldol] AdvReac Unknown Verified 03/13/18 12:10 haloperidol lactate AdvReac Unknown Verified 03/13/18 12:10 [From Haldol] Home Medications Medication Instructions Recorded Confirmed Last Taken Type risperiDONE [RisperDAL] 1 mg PO QAM 03/13/18 12/27/18 Unknown History Sertraline [Zoloft] 100 mg PO QDAY 08/26/18 12/27/18 Unknown History risperiDONE [RisperDAL] 0.5 mg PO HS 08/26/18 12/27/18 Unknown History Polyethylene Glycol 3350 [Miralax 17 gm PO QDAY #30 packet 11/05/18 12/27/18 Unknown Rx 3350] Aspirin EC 81 mg PO DAILY #30 11/19/18 12/27/18 Unknown Rx Docusate Sodium [Colace CAP] 100 mg PO BID #60 11/19/18 12/27/18 Unknown Rx Folic Acid [Folvite] 1 mg PO DAILY #30 tab 11/19/18 12/27/18 Unknown Rx Famotidine [Pepcid] 20 mg PO DAILY tablet 12/08/18 12/27/18 Unknown Rx Gabapentin [Neurontin] 100 mg PO QHS capsule 12/08/18 12/27/18 Unknown Rx Metoprolol [Lopressor TAB] 50 mg PO BID 30 Days tablet 12/08/18 12/27/18 Unknown Rx Sevelamer Carbonate [Renvela] 800 mg PO TIDWM tablet 12/08/18 12/27/18 Unknown Rx hydrALAZINE [Apresoline TAB] 100 mg PO Q8HR #120 tablet 12/08/18 12/27/18 Unknown Rx Acetaminophen [Acetaminophen TAB] 650 mg PO Q12H PRN 12/15/18 12/27/18 Unknown History Amino Acids/Protein Hydrolys 30 ml PO BID 12/15/18 12/27/18 Unknown History [Pro-Stat Sugar Free Liquid] Glucagon,Human Recombinant 1 mg IJ Q15MIN PRN 12/15/18 12/27/18 Unknown History [Glucagon Emergency Kit] Insulin Aspart [NovoLOG 100 See Protocol SQ QWEEK 12/15/18 12/27/18 Unknown History UNITS/ML VIAL] Epoetin Solitario 10,000 Unit [Procrit] 10,000 unit IV UMA PRN vial 12/18/18 12/27/18 Unknown Rx Lispro Insulin [HumaLOG] 0 unit SUB-Q ACHS units 12/18/18 12/27/18 Unknown Rx risperiDONE [RisperDAL] 0.5 mg PO QHS tablet 12/18/18 12/27/18 Unknown Rx Active Meds: Active Medications Acetaminophen (Tylenol) 650 mg PO Q4H PRN PRN Reason: Pain MILD(1-3)/Fever >100.5/HILL Last Admin: 12/29/18 12:29 Dose: 650 mg Documented by: Lipase/Protease/Amylase (Mc Barrientos 10,500 Unit) 1 each FEEDTUBE PRN PRN PRN Reason: For Clogged Feeding Tube Aspirin (Halfprin Ec) 81 mg PO DAILY [facility] Last Admin: 12/29/18 12:31 Dose: 81 mg Documented by: Docusate Sodium (Colace) 100 mg PO BID [facility] Last Admin: 12/29/18 12:44 Dose: Not Given Documented by: Famotidine (Pepcid) 20 mg PO DAILY [facility] Last Admin: 12/29/18 12:32 Dose: 20 mg Documented by: Folic Acid (Folvite) 1 mg PO DAILY [facility] Last Admin: 12/29/18 12:31 Dose: 1 mg Documented by: Gabapentin (Neurontin) 100 mg PO QHS [facility] Last Admin: 12/28/18 22:05 Dose: Not Given Documented by: Glucagon (Glucagen) 1 mg IV Q15M PRN PRN Reason: Hypoglycemia (BG < 70) Heparin Sodium (Porcine) (Heparin) 5,000 unit SUB-Q Q12HR [facility] Last Admin: 12/29/18 12:28 Dose: 5,000 unit Documented by: Hydralazine HCl (Apresoline) 100 mg PO Q8HR [facility] Last Admin: 12/29/18 12:37 Dose: 100 mg Documented by: Hydromorphone HCl (Dilaudid) 0.25 mg IV Q3H PRN PRN Reason: Pain, Moderate (4-6) Last Admin: 12/29/18 05:38 Dose: 0.25 mg Documented by: Sodium Chloride (Nacl 0.9%) 100 mls @ 999 mls/hr IV UMA PRN PRN Reason: Hypotension Metoprolol Tartrate (Lopressor) 50 mg PO BID [facility] Last Admin: 12/29/18 12:36 Dose: 50 mg Documented by: Metoprolol Tartrate (Lopressor) 5 mg IV Q5MIN PRN PRN Reason: increased heart rate Last Admin: 12/29/18 05:41 Dose: 5 mg Documented by: Ondansetron HCl (Zofran) 4 mg IV Q8H PRN PRN Reason: Nausea And Vomiting Polyethylene Glycol (Miralax 3350) 17 gm PO QDAY [facility] Last Admin: 12/29/18 12:32 Dose: Not Given Documented by: Risperidone (Risperdal) 0.5 mg PO QHS [facility] Last Admin: 12/28/18 22:05 Dose: Not Given Documented by: Risperidone (Risperdal) 1 mg PO QAM [facility] Last Admin: 12/29/18 12:46 Dose: 1 mg Documented by: Sertraline HCl (Zoloft) 100 mg PO QDAY [facility] Last Admin: 12/29/18 12:29 Dose: 100 mg Documented by: Simple Syrup (Simple Syrup) 15 ml FEEDTUBE PRN PRN PRN Reason: Hypoglycemia Simple Syrup (Simple Syrup) 30 ml FEEDTUBE PRN PRN PRN Reason: Hypoglycemia Sodium Bicarbonate (Sodium Bicarbonate) 325 mg FEEDTUBE PRN PRN PRN Reason: For Clogged Feeding Tube Sodium Chloride (Sodium Chloride Flush Syringe 10 Ml) 10 ml IV BID [facility] Last Admin: 12/29/18 12:35 Dose: 10 ml Documented by: Sodium Chloride (Sodium Chloride Flush Syringe 10 Ml) 10 ml IV PRN PRN PRN Reason: LINE FLUSH Review of Systems ROS unobtainable: due to mental status Physical Examination Vital Signs Temp Pulse Resp BP Pulse Ox 100.1 F H 125 H 17 88/44 100 12/26/18 17:21 12/26/18 17:21 12/26/18 17:21 12/26/18 17:21 12/26/18 17:21 General appearance: no acute distress, other (nonverbal) Cardiac: Positive: irregularly irregular, S1/S2 Lungs: Positive: Decreased Breath Sounds Neuro: Positive: Other (nonverbal) Skin: Negative: Rash Extremities: Absent: edema Results 12/27/18 07:04 12/27/18 07:04 - Imaging and Cardiology Echo: report reviewed (Echo done 12/16/2018 showed EF 35-40%, mild LVH, RV systolic function mod reduced, RA mildly dilated, pulm HTN with RVSP 53mmHg, large pleural effusion, markedly increased RA pressure. ) EKG: report reviewed, image reviewed EKG interpretations - Telemetry EKG Rhythm: Atrial Fibrillation - EKG Supraventricular dysrhythmia: atrial fibrillation Assessment and Plan Pt in AFib with RVR and acute HFrEF. Optimize BPs and HR - increase lopressor dosage. Volume optimization per nephrology. Pt appears to be a poor candidate for long-term OAC in setting of mental status, anemia, thrombocytopenia, and multiple co-morbidities. The patient has been seen in conjunction with Dr. Martin who agrees with the assessment and plan of care. - Patient Problems (1) Atrial fibrillation with RVR Current Visit: Yes Status: Acute (2) History of loop recorder Current Visit: Yes Status: Chronic (3) Acute HFrEF (heart failure with reduced ejection fraction) Current Visit: Yes Status: Acute (4) Cardiomyopathy Current Visit: Yes Status: Chronic (5) Altered mental status Current Visit: Yes Status: Acute Qualifiers: Altered mental status type: unspecified Qualified Code(s): R41.82 - Altered mental status, unspecified (6) ESRD (end stage renal disease) on dialysis Current Visit: Yes Status: Chronic (7) Diabetes Current Visit: Yes Status: Chronic (8) History of CVA (cerebrovascular accident) Current Visit: Yes Status: Chronic (9) Legally blind Current Visit: Yes Status: Chronic (10) Anemia Current Visit: Yes Status: Chronic Qualifiers: Anemia type: unspecified type Qualified Code(s): D64.9 - Anemia, unspecified (11) Thrombocytopenia Current Visit: Yes Status: Chronic (12) NSTEMI (non-ST elevated myocardial infarction) Current Visit: Yes Status: Acute Plan to address problem: type II (13) Lactic acidosis Current Visit: Yes Status: Acute
--- NOTE | 2018-12-29 17:20 | Progress Note ---
Assessment and Plan Assessment and plan: 63-year-old -[place] male with multiple medical problems sent from [facility] for altered sensorium and decreased responsiveness. Patient end-stage renal disease hypertension insulin-dependent diabetes COPD and CHF. No fever or chills. Decreased responsive and not eating at all for the last 36 hours. No shortness of breath. No chest pain. Patient has failure to thrive, altered mentation and weight loss of 20 pounds since 12/08/2018. Acute encephalopathy Secondary to uremia Patient is on HD Nephrology consult appreciated Acute exacerbation of CHF (congestive heart failure), and rapid Afib cont hd, optimize meds per cardiology ESRD needing dialysis Continue hemo dialysis Insulin dependent diabetes mellitus - A1c is 4.2 insulin was dc FTT, malnutrition -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, cont oral diet, metal grinder input appreciated Hypertension Continue antihypertensives Peripheral neuropathy Continue gabapentin Anemia Continue epoetin Elevated lactic acid level Sepsis unlikely, resolved Elevated troponin Secondary to end-stage renal disease, chf and afib, cardiology input appreciated DVT prophylaxis On heparin and GI prophylaxis History Interval history: continues to have weakness opens eyes and is verbal , no fevers, no vomiting, no seizures Hospitalist Physical - Physical exam Narrative exam: appears chronically ill Vital signs as documented. Head exam is unremarkable., opens eyes, says Fede, does not seem to understand his medical condition No scleral icterus . Neck is without jugular venous distension, thyromegaly, or carotid bruits. Lungs are clear to auscultation. Cardiac exam reveals regular rate and Rhythm. First and second heart sounds normal. No murmurs, rubs or gallops. Abdominal exam reveals normal bowel sounds, no masses, no organomegaly and no aortic enlargement. Extremities are nonedematous and both femoral and pedal pulses are normal. 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, only says Fede, unable to have complex conversation - Constitutional Vitals: Temp Pulse Resp BP Pulse Ox 97.0 F L 155 H 18 173/97 99 12/29/18 08:30 12/29/18 12:36 12/29/18 08:30 12/29/18 08:30 12/29/18 08:30 General appearance: Present: no acute distress, cachectic, disheveled Results - Labs CBC & Chem 7: 01/07/19 00:45 01/07/19 11:16 Labs: Laboratory Last Values WBC 10.6 K/mm3 (4.5-11.0) 12/27/18 07:04 RBC 3.60 M/mm3 (3.65-5.03) L 12/27/18 07:04 Hgb 9.2 gm/dl (11.8-15.2) L 12/27/18 07:04 Hct 29.4 % (35.5-45.6) L 12/27/18 07:04 MCV 82 fl (84-94) L 12/27/18 07:04 MCH 26 pg (28-32) L 12/27/18 07:04 MCHC 31 % (32-34) L 12/27/18 07:04 RDW 20.9 % (13.2-15.2) H 12/27/18 07:04 Plt Count 128 K/mm3 (140-440) L 12/27/18 07:04 Lymph % (Auto) Mechanical Process Engineer 12/27/18 07:04 [place] % (Auto) Mechanical Process Engineer 12/27/18 07:04 Eos % (Auto) Mechanical Process Engineer 12/27/18 07:04 Baso % (Auto) Mechanical Process Engineer 12/27/18 07:04 Lymph # Mechanical Process Engineer 12/27/18 07:04 Cross # Mechanical Process Engineer 12/27/18 07:04 Eos # Mechanical Process Engineer 12/27/18 07:04 Baso # Mechanical Process Engineer 12/27/18 07:04 Seg Neutrophils % Mechanical Process Engineer 12/27/18 07:04 Seg Neutrophils # Mechanical Process Engineer 12/27/18 07:04 Sodium 130 mmol/L (137-145) L 12/27/18 07:04 Potassium 4.6 mmol/L (3.6-5.0) 12/27/18 07:04 Chloride 90.9 mmol/L (98-107) L 12/27/18 07:04 Carbon Dioxide 22 mmol/L (22-30) 12/27/18 07:04 22 mmol/L 12/27/18 07:04 BUN 42 mg/dL (9-20) H 12/27/18 07:04 5.6 mg/dL (0.8-1.5) H 12/27/18 07:04 Estimated GFR 12 ml/min 12/27/18 07:04 8 % 12/27/18 07:04 Glucose 97 mg/dL (75-100) 12/27/18 07:04 POC Glucose 91 (70-105) 12/28/18 20:55 < 4.2 % (4-6) 12/26/18 17:12 Lactic Acid 1.10 mmol/L (0.7-2.0) 12/27/18 07:04 Calcium 9.7 mg/dL (8.4-10.2) 12/27/18 07:04 0.50 mg/dL (0.1-1.2) 12/27/18 07:04 AST 12 units/L (5-40) 12/27/18 07:04 ALT < 5 units/L (7-56) L 12/27/18 07:04 103 units/L (35-129) 12/27/18 07:04 29 units/L (55-170) L 12/26/18 17:12 0.158 ng/mL (0.00-0.029) H* 12/26/18 17:12 6.5 g/dL (6.3-8.2) 12/27/18 07:04 2.5 g/dL (3.9-5) L 12/27/18 07:04 0.6 % 12/27/18 07:04 Triglycerides 75 mg/dL (2-149) 12/26/18 17:12 Cholesterol 109 mg/dL (50-199) 12/26/18 17:12 43 mg/dL (50-130) L 12/26/18 17:12 41 mg/dL (40-59) 12/26/18 17:12 2.65 % 12/26/18 17:12 Active Medications - Current Medications Current Medications: Generic Name Dose Route Start Last Admin Trade Name Freq PRN Reason Stop Dose Admin Acetaminophen 650 mg 12/26/18 21:40 12/29/18 12:29 Tylenol PO 650 mg Q4H PRN Administration Pain MILD(1-3)/Fever >100.5/HILL Lipase/Protease/Amylase 1 each 12/27/18 17:[address] 10,500 Unit FEEDTUBE PRN PRN For Clogged Feeding Tube Aspirin 81 mg 12/27/18 10:00 12/29/18 12:31 Halfprin Ec PO 81 mg DAILY SANCHEZ Administration Docusate Sodium 100 mg 12/26/18 22:00 12/29/18 12:44 Colace PO Not Given BID SANCHEZ Famotidine 20 mg 12/27/18 10:00 12/29/18 12:32 Pepcid PO 20 mg DAILY SANCHEZ Administration Folic Acid 1 mg 12/27/18 10:00 12/29/18 12:31 Folvite PO 1 mg DAILY SANCHEZ Administration Gabapentin 100 mg 12/26/18 22:00 12/28/18 22:05 Neurontin PO Not Given QHS SANCHEZ Glucagon 1 mg 12/26/18 21:55 Glucagen IV Q15M PRN Hypoglycemia (BG < 70) Heparin Sodium (Porcine) 5,000 unit 12/26/18 22:00 12/29/18 12:28 Heparin SUB-Q 5,000 unit Q12HR SANCHEZ Administration Hydralazine HCl 100 mg 12/26/18 22:00 12/29/18 12:37 Apresoline PO 100 mg Q8HR SANCHEZ Administration Hydromorphone HCl 0.25 mg 12/26/18 21:40 12/29/18 05:38 Dilaudid IV 0.25 mg Q3H PRN Administration Pain, Moderate (4-6) Metoprolol Tartrate 5 mg 12/27/18 18:55 12/29/18 05:41 Lopressor IV 5 mg Q5MIN PRN Administration increased heart rate Metoprolol Tartrate 50 mg 12/29/18 14:00 Lopressor PO TID [facility] Ondansetron HCl 4 mg 12/26/18 21:40 Zofran IV Q8H PRN Nausea And Vomiting Polyethylene Glycol 17 gm 12/27/18 10:00 12/29/18 12:32 Miralax 3350 PO Not Given QDAY [facility] Risperidone 0.5 mg 12/26/18 22:00 12/28/18 22:05 Risperdal PO Not Given QHS SANCHEZ Risperidone 1 mg 12/27/18 10:00 12/29/18 12:46 Risperdal PO 1 mg QAM SANCHEZ Administration Sertraline HCl 100 mg 12/27/18 10:00 12/29/18 12:29 Zoloft PO 100 mg QDAY SANCHEZ Administration Simple Syrup 15 ml 12/27/18 17:37 Simple Syrup FEEDTUBE PRN PRN Hypoglycemia Simple Syrup 30 ml 12/27/18 17:37 Simple Syrup FEEDTUBE PRN PRN Hypoglycemia Sodium Bicarbonate 325 mg 12/27/18 17:37 Sodium Bicarbonate FEEDTUBE PRN PRN For Clogged Feeding Tube Sodium Chloride 10 ml 12/26/18 22:00 12/29/18 12:35 Sodium Chloride Flush Syringe 10 Ml IV 10 ml BID SANCHEZ Administration Sodium Chloride 10 ml 12/26/18 21:40 Sodium Chloride Flush Syringe 10 Ml IV PRN PRN LINE FLUSH Nutrition/Malnutrition Assess - Dietary Evaluation Nutrition/Malnutrition Findings: Nutrition Notes Start: 12/27/18 17:15 Freq: Status: Active Protocol: Document 12/29/18 14:16 OH (Rec: 12/29/18 14:26 OH [id number]) Nutrition Notes Initial or Follow up Reassessment Labs/Tests alb 2.5 K+ 4.6 Pertinent Medications Reviewed Height 5 ft 7 in Weight 90.1 kg [place] Body Weight (kg) 67.27 BMI 31.1 Subjective/Other Information f/u: Pt. sitting up in bed. Pt . not answering questions appropriately. [facility] Nepro d/c'd due to patient unable to tolerate. ST assessed pt and he passed the swallow test. Difficulty In Swallowing,Chewing Current % PO Poor (25-49%) #1 Nutrition Diagnosis Increased nutrient needs ( specify in comment below) Etiology increased PRO needs As Evidenced by Signs and Symptoms sacral wound Additional Notes Protein Needs: 95-119g (1.2-1 .5g/kg 79kg adjBW) Fluid Needs: 1 ml/kcal Nutrition Intervention Change Diet Order: Renal Puree/nectar thickened liquids Add Supplement/Snack (indicate name/kcal nepro vanilla q daily /protein ) Provides kCal: 425 Provides Protein (gm) 19 Goal #1 Meet >75% PRO/KCAL needs via po Anticipated Discharge Needs: Unable to determine at this time Follow-Up By: 12/31/18 Additional Comments f/u: assess for po intake
[2018-12-29] MEDS: NEURONTIN PO SCH (22:03)
[2018-12-30] MEDS ORDERED: NACL 0.9 (PRIMING MACHINE ONLY DIALYSIS) MC ONE (09:32)
--- NOTE | 2018-12-30 09:38 | Progress Note ---
Subjective Interval history: Patient was seen today for follow-up on multiple renal related issues Events of this hospitalization noted Patient is on dialysis Saturday Patient was also seen in supervised on hemodialysis He is alert and awake Patient denies having any chest pain pressure or shortness of breath Vitals labs intake output medications were reviewed Social history: Reviewed Allergies: Reviewed Family history: Reviewed Physical examination HEENT: Oral mucosa moist no pallor or icterus Neck: Supple no JVD Chest: Clear to auscultation anteriorly CVS: Regular rate and rhythm S1 and S2 heard Abdomen: Soft nontender no suprapubic masses no organomegaly appreciable Extremity: Dry skin less than 1+ peripheral edema Chronic upper extremity swelling Musculoskeletal: No joint effusion noted in knees and ankle Neurological: Alert awake Dermatology: No petechial rashes Psychiatry: No evidence of any agitation and aggression noted Assessment and plan; End-stage renal disease: Patient will continue with hemodialysis on Saturday and Saturday, with a central venous catheter He does have some chronic swelling of his upper extremity which is likely due to vascular issues and he may benefit from a vascular Doppler and a vascular surgery evaluation Admitted with altered mental status patient clinically appears to be doing better November 2018 ejection fraction is between 35-40% cardiology findings reviewed Chronic history of atrial fibrillation I believe patient's health in general has been declining due to multiple comorbidities including dialysis status, diabetes CVA, his mental status appears to be at the baseline to me he is alert awake Avoid any form of sedative or hypnotics Due to end-stage renal disease and related comorbidities his prognosis appears to be very poor Would like to avoid Renvela altogether due to GI toxicity and this can also cause poor appetite, Anemia in end-stage renal disease: Monitor hemoglobin and hematocrit, erythropoietin as needed Secondary hyperparathyroidism periodically check phosphorus and PTH level, goal phosphorus less than 5.5 PTH less than 600, educated about renal osteodystrophy Hypertension and volume: , Adjust medications as needed, ultrafiltration as tolerated keep systolic blood pressure above 100 Malnutrition risk: High please consider high protein diet as well as nutrition follow-up, patient needs at least 1.5 g protein per KG body weight Dialysis access: Currently working well, discussed about monitoring, he will need follow-up with vascular surgery We'll continue to follow and make recommendation from renal standpoint Objective - Vital Signs Vital signs: Vital Signs - 12hr 12/29/18 12/29/18 12/30/18 22:02 23:59 04:32 Temperature 97.5 F L 98.5 F Pulse Rate 100 H 111 H 99 H Respiratory 17 17 Rate Blood Pressure 148/83 142/80 O2 Sat by Pulse 100 100 Oximetry 12/30/18 08:02 Temperature 98.2 F Pulse Rate 99 H Respiratory 20 Rate Blood Pressure 146/75 O2 Sat by Pulse 100 Oximetry - Lab 12/27/18 07:04 12/27/18 07:04 Most recent lab results Calcium 9.7 mg/dL (8.4-10.2) 12/27/18 07:04 Medications & Allergies - Medications Allergies/Adverse Reactions: Allergies haloperidol [From Haldol] Adverse Reaction (Verified 03/13/18 12:10) Unknown haloperidol lactate [From Haldol] Adverse Reaction (Verified 03/13/18 12:10) Unknown Home Medications: Home Medications Medication Instructions Recorded Confirmed Last Taken Type risperiDONE [RisperDAL] 1 mg PO QAM 03/13/18 12/27/18 Unknown History Sertraline [Zoloft] 100 mg PO QDAY 08/26/18 12/27/18 Unknown History risperiDONE [RisperDAL] 0.5 mg PO HS 08/26/18 12/27/18 Unknown History Polyethylene Glycol 3350 [Miralax 17 gm PO QDAY #30 packet 11/05/18 12/27/18 Unknown Rx 3350] Aspirin EC 81 mg PO DAILY #30 11/19/18 12/27/18 Unknown Rx Docusate Sodium [Colace CAP] 100 mg PO BID #60 11/19/18 12/27/18 Unknown Rx Folic Acid [Folvite] 1 mg PO DAILY #30 tab 11/19/18 12/27/18 Unknown Rx Famotidine [Pepcid] 20 mg PO DAILY tablet 12/08/18 12/27/18 Unknown Rx Gabapentin [Neurontin] 100 mg PO QHS capsule 12/08/18 12/27/18 Unknown Rx Metoprolol [Lopressor TAB] 50 mg PO BID 30 Days tablet 12/08/18 12/27/18 Unknown Rx Sevelamer Carbonate [Renvela] 800 mg PO TIDWM tablet 12/08/18 12/27/18 Unknown Rx hydrALAZINE [Apresoline TAB] 100 mg PO Q8HR #120 tablet 12/08/18 12/27/18 Unkn own Rx Acetaminophen [Acetaminophen TAB] 650 mg PO Q12H PRN 12/15/18 12/27/18 Unknown History Amino Acids/Protein Hydrolys 30 ml PO BID 12/15/18 12/27/18 Unknown History [Pro-Stat Sugar Free Liquid] Glucagon,Human Recombinant 1 mg IJ Q15MIN PRN 12/15/18 12/27/18 Unknown History [Glucagon Emergency Kit] Insulin Aspart [NovoLOG 100 See Protocol SQ QWEEK 12/15/18 12/27/18 Unknown History UNITS/ML VIAL] Epoetin Solitario 10,000 Unit [Procrit] 10,000 unit IV UMA PRN vial 12/18/18 12/27/18 Unknown Rx Lispro Insulin [HumaLOG] 0 unit SUB-Q ACHS units 12/18/18 12/27/18 Unknown Rx risperiDONE [RisperDAL] 0.5 mg PO QHS tablet 12/18/18 12/27/18 Unknown Rx Active Medications: Generic Name Dose Route Start Last Admin Trade Name Ismael PRN Reason Stop Dose Admin Acetaminophen 650 mg 12/26/18 21:40 12/29/18 12:29 Tylenol PO 650 mg Q4H PRN Administration Pain MILD(1-3)/Fever >100.5/HILL Lipase/Protease/Amylase 1 each 12/27/18 17:37 Pancreaze 10,500 Unit FEEDTUBE PRN PRN For Clogged Feeding Tube Aspirin 81 mg 12/27/18 10:00 12/29/18 12:31 Halfprin Ec PO 81 mg DAILY SANCHEZ Administration Docusate Sodium 100 mg 12/26/18 22:00 12/29/18 22:03 Colace PO Not Given BID SANCHEZ Famotidine 20 mg 12/27/18 10:12/29/18 12:32 Pepcid PO 20 mg DAILY SANCHEZ Administration Folic Acid 1 mg 12/27/18 10:00 12/29/18 12:31 Folvite PO 1 mg DAILY SANCHEZ Administration Gabapentin 100 mg 12/26/18 22:00 12/29/18 22:03 Neurontin PO 100 mg QHS SANCHEZ Administration Glucagon 1 mg 12/26/18 21:55 Glucagen IV Q15M PRN Hypoglycemia (BG < 70) Heparin Sodium (Porcine) 5,000 unit 12/26/18 22:00 12/29/18 22:48 Heparin SUB-Q 5,000 unit Q12HR SANCHEZ Administration Hydralazine HCl 100 mg 12/26/18 22:00 12/29/18 22:02 Apresoline PO 100 mg Q8HR SANCHEZ Administration Hydromorphone HCl 0.25 mg 12/26/18 21:40 12/29/18 05:38 Dilaudid IV 0.25 mg Q3H PRN Administration Pain, Moderate (4-6) Metoprolol Tartrate 5 mg 12/27/18 18:55 12/29/18 05:41 Lopressor IV 5 mg Q5MIN PRN Administration increased heart rate Metoprolol Tartrate 50 mg 12/29/18 14:00 12/29/18 22:02 Lopressor PO 50 mg TID SANCHEZ Administration Ondansetron HCl 4 mg 12/26/18 21:40 Zofran IV Q8H PRN Nausea And Vomiting Polyethylene Glycol 17 gm 12/27/18 10:00 12/29/18 12:32 Miralax 3350 PO Not Given QDAY SANCHEZ Risperidone 0.5 mg 12/26/18 22:00 12/29/18 22:02 Risperdal PO 0.5 mg QHS SANCHEZ Administration Risperidone 1 mg 12/27/18 10:00 12/29/18 12:46 Risperdal PO 1 mg QAM SANCHEZ Administration Sertraline HCl 100 mg 12/27/18 10:00 12/29/18 12:29 Zoloft PO 100 mg QDAY SANCHEZ Administration Simple Syrup 15 ml 12/27/18 17:37 Simple Syrup FEEDTUBE PRN PRN Hypoglycemia Simple Syrup 30 ml 12/27/18 17:37 Simple Syrup FEEDTUBE PRN PRN Hypoglycemia Sodium Bicarbonate 325 mg 12/27/18 17:37 Sodium Bicarbonate FEEDTUBE PRN PRN For Clogged Feeding Tube Sodium Chloride 10 ml 12/26/18 22:00 12/29/18 22:04 Sodium Chloride Flush Syringe 10 Ml IV 10 ml BID SANCHEZ Administration Sodium Chloride 10 ml 12/26/18 21:40 Sodium Chloride Flush Syringe 10 Ml IV PRN PRN LINE FLUSH
--- NOTE | 2018-12-30 12:02 | Progress Note ---
Assessment and Plan Assessment and plan: 63-year-old -Omani male with multiple medical problems sent from [facility] for altered sensorium and decreased responsiveness. Patient end-stage renal disease hypertension insulin-dependent diabetes COPD and CHF. No fever or chills. Decreased responsive and not eating at all for the last 36 hours. No shortness of breath. No chest pain. Patient has failure to thrive, altered mentation and weight loss of 20 pounds since 12/08/2018. sacral decub, POA, stage 2-3 worsening, cont wound care Acute encephalopathy Secondary to uremia, and FTT, improving Patient is on HD Nephrology consult appreciated Acute exacerbation of CHF (congestive heart failure), and rapid Afib cont hd, optimize meds per cardiology ESRD needing dialysis Continue hemo dialysis Insulin dependent diabetes mellitus - A1c is 4.2 insulin was dc FTT, malnutrition -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, cont oral diet, corn picker input appreciated Hypertension Continue antihypertensives Peripheral neuropathy Continue gabapentin Anemia Continue epoetin Elevated lactic acid level Sepsis unlikely, resolved Elevated troponin Secondary to end-stage renal disease, chf and afib, cardiology input appreciated DVT prophylaxis On heparin and GI prophylaxis History Interval history: continues to have weakness opens eyes and is verbal , no fevers, no vomiting, no seizures Hospitalist Physical - Physical exam Narrative exam: appears chronically ill Vital signs as documented. Head exam is unremarkable., opens eyes, says Fede, does not seem to understand his medical condition No scleral icterus . Neck is without jugular venous distension, thyromegaly, or carotid bruits. Lungs are clear to auscultation. Cardiac exam reveals regular rate and Rhythm. First and second heart sounds normal. No murmurs, rubs or gallops. Abdominal exam reveals normal bowel sounds, no masses, no organomegaly and no aortic enlargement. Extremities are nonedematous and both femoral and pedal pulses are normal. 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, only says Fede, unable to have complex conversation - Constitutional Vitals: Temp Pulse Resp BP Pulse Ox 97.8 F 96 H 16 153/85 100 12/30/18 08:30 12/30/18 11:45 12/30/18 08:30 12/30/18 11:45 12/30/18 08:30 General appearance: Present: no acute distress, cachectic, disheveled Results - Labs CBC & Chem 7: 01/07/19 00:45 01/07/19 11:16 Labs: Laboratory Last Values WBC 10.6 K/mm3 (4.5-11.0) 12/27/18 07:04 RBC 3.60 M/mm3 (3.65-5.03) L 12/27/18 07:04 Hgb 9.2 gm/dl (11.8-15.2) L 12/27/18 07:04 Hct 29.4 % (35.5-45.6) L 12/27/18 07:04 MCV 82 fl (84-94) L 12/27/18 07:04 MCH 26 pg (28-32) L 12/27/18 07:04 MCHC 31 % (32-34) L 12/27/18 07:04 RDW 20.9 % (13.2-15.2) H 12/27/18 07:04 Plt Count 128 K/mm3 (140-440) L 12/27/18 07:04 Lymph % (Auto) Hair Blender 12/27/18 07:04 [place] % (Auto) Hair Blender 12/27/18 07:04 Eos % (Auto) Hair Blender 12/27/18 07:04 Baso % (Auto) Hair Blender 12/27/18 07:04 Lymph # Hair Blender 12/27/18 07:04 [place] # Hair Blender 12/27/18 07:04 Eos # Hair Blender 12/27/18 07:04 Baso # Hair Blender 12/27/18 07:04 Seg Neutrophils % Hair Blender 12/27/18 07:04 Seg Neutrophils # Hair Blender 12/27/18 07:04 Sodium 130 mmol/L (137-145) L 12/27/18 07:04 Potassium 4.6 mmol/L (3.6-5.0) 12/27/18 07:04 Chloride 90.9 mmol/L (98-107) L 12/27/18 07:04 Carbon Dioxide 22 mmol/L (22-30) 12/27/18 07:04 22 mmol/L 12/27/18 07:04 BUN 42 mg/dL (9-20) H 12/27/18 07:04 5.6 mg/dL (0.8-1.5) H 12/27/18 07:04 Estimated GFR 12 ml/min 12/27/18 07:04 8 % 12/27/18 07:04 Glucose 97 mg/dL (75-100) 12/27/18 07:04 POC Glucose 91 (70-105) 12/28/18 20:55 < 4.2 % (4-6) 12/26/18 17:12 Lactic Acid 1.10 mmol/L (0.7-2.0) 12/27/18 07:04 Calcium 9.7 mg/dL (8.4-10.2) 12/27/18 07:04 0.50 mg/dL (0.1-1.2) 12/27/18 07:04 AST 12 units/L (5-40) 12/27/18 07:04 ALT < 5 units/L (7-56) L 12/27/18 07:04 103 units/L (35-129) 12/27/18 07:04 29 units/L (55-170) L 12/26/18 17:12 0.158 ng/mL (0.00-0.029) H* 12/26/18 17:12 6.5 g/dL (6.3-8.2) 12/27/18 07:04 2.5 g/dL (3.9-5) L 12/27/18 07:04 0.6 % 12/27/18 07:04 Triglycerides 75 mg/dL (2-149) 12/26/18 17:12 Cholesterol 109 mg/dL (50-199) 12/26/18 17:12 43 mg/dL (50-130) L 12/26/18 17:12 41 mg/dL (40-59) 12/26/18 17:12 2.65 % 12/26/18 17:12 Active Medications - Current Medications Current Medications: Generic Name Dose Route Start Last Admin Trade Name Freq PRN Reason Stop Dose Admin Acetaminophen 650 mg 12/26/18 21:40 12/29/18 12:29 Tylenol PO 650 mg Q4H PRN Administration Pain MILD(1-3)/Fever >100.5/HILL Lipase/Protease/Amylase 1 each 12/27/18 17:37 Pancreaze 10,500 Unit FEEDTUBE PRN PRN For Clogged Feeding Tube Aspirin 81 mg 12/27/18 10:00 12/29/18 12:31 Halfprin Ec PO 81 mg DAILY SANCHEZ Administration Docusate Sodium 100 mg 12/26/18 22:00 12/29/18 22:03 Colace PO Not Given BID SANCHEZ Famotidine 20 mg 12/27/18 10:00 12/29/18 12:32 Pepcid PO 20 mg DAILY SANCHEZ Administration Folic Acid 1 mg 12/27/18 10:00 12/29/18 12:31 Folvite PO 1 mg DAILY SANCHEZ Administration Gabapentin 100 mg 12/26/18 22:00 12/29/18 22:03 Neurontin PO 100 mg QHS SANCHEZ Administration Glucagon 1 mg 12/26/18 21:55 Glucagen IV Q15M PRN Hypoglycemia (BG < 70) Heparin Sodium (Porcine) 5,000 unit 12/26/18 22:00 12/29/18 22:48 Heparin SUB-Q 5,000 unit Q12HR SANCHEZ Administration Hydralazine HCl 100 mg 12/26/18 22:00 12/29/18 22:02 Apresoline PO 100 mg Q8HR SANCHEZ Administration Hydromorphone HCl 0.25 mg 12/26/18 21:40 12/29/18 05:38 Dilaudid IV 0.25 mg Q3H PRN Administration Pain, Moderate (4-6) Metoprolol Tartrate 5 mg 12/27/18 18:55 12/29/18 05:41 Lopressor IV 5 mg Q5MIN PRN Administration increased heart rate Metoprolol Tartrate 50 mg 12/29/18 14:00 12/29/18 22:02 Lopressor PO 50 mg TID SANCHEZ Administration Ondansetron HCl 4 mg 12/26/18 21:40 Zofran IV Q8H PRN Nausea And Vomiting Polyethylene Glycol 17 gm 12/27/18 10:00 12/29/18 12:32 Miralax 3350 PO Not Given QDAY SANCHEZ Risperidone 0.5 mg 12/26/18 22:00 12/29/18 22:02 Risperdal PO 0.5 mg QHS SANCHEZ Administration Risperidone 1 mg 12/27/18 10:00 12/29/18 12:46 Risperdal PO 1 mg QAM SANCHEZ Administration Sertraline HCl 100 mg 12/27/18 10:00 12/29/18 12:29 Zoloft PO 100 mg QDAY SANCHEZ Administration Simple Syrup 15 ml 12/27/18 17:37 Simple Syrup FEEDTUBE PRN PRN Hypoglycemia Simple Syrup 30 ml 12/27/18 17:37 Simple Syrup FEEDTUBE PRN PRN Hypoglycemia Sodium Bicarbonate 325 mg 12/27/18 17:37 Sodium Bicarbonate FEEDTUBE PRN PRN For Clogged Feeding Tube Sodium Chloride 10 ml 12/26/18 22:00 12/29/18 22:04 Sodium Chloride Flush Syringe 10 Ml IV 10 ml BID SANCHEZ Administration Sodium Chloride 10 ml 12/26/18 21:40 Sodium Chloride Flush Syringe 10 Ml IV PRN PRN LINE FLUSH Nutrition/Malnutrition Assess - Dietary Evaluation Nutrition/Malnutrition Findings: Nutrition Notes Start: 12/27/18 17:15 Freq: Status: Active Protocol: Document 12/29/18 14:16 OH (Rec: 12/29/18 14:26 OH [id number]) Nutrition Notes Initial or Follow up Reassessment Labs/Tests alb 2.5 K+ 4.6 Pertinent Medications Reviewed Height 5 ft 7 in Weight 90.1 kg [place] Body Weight (kg) 67.27 BMI 31.1 Subjective/Other Information f/u: Pt. sitting up in bed. Pt . not answering questions appropriately. Pt. resides @ [facility]. Nepro d/c'd due to patient unable to tolerate. ST assessed pt and he passed the swallow test. Difficulty In Swallowing,Chewing Current % PO Poor (25-49%) #1 Nutrition Diagnosis Increased nutrient needs ( specify in comment below) Etiology increased PRO needs As Evidenced by Signs and Symptoms sacral wound Additional Notes Protein Needs: 95-119g (1.2-1 .5g/kg 79kg adjBW) Fluid Needs: 1 ml/kcal Nutrition Intervention Change Diet Order: Renal Puree/nectar thickened liquids Add Supplement/Snack (indicate name/kcal nepro vanilla q daily /protein ) Provides kCal: 425 Provides Protein (gm) 19 Goal #1 Meet >75% PRO/KCAL needs via po Anticipated Discharge Needs: Unable to determine at this time Follow-Up By: 12/31/18 Additional Comments f/u: assess for po intake
[2018-12-30] MEDS: APRESOLINE PO SCH ×2 (13:34→13:36)
[2018-12-30] MEDS: HEPARIN SUB-Q SCH ×2 (13:34→22:10)
[2018-12-30] MEDS: PEPCID PO SCH (13:34)
[2018-12-30] MEDS: MIRALAX 3350 PO SCH (13:34)
[2018-12-30] MEDS: RisperDAL PO SCH (13:34)
[2018-12-30] MEDS: LOPRESSOR PO SCH ×2 (13:34→13:35)
[2018-12-30] MEDS: SODIUM CHLORIDE FLUSH SYRINGE 10 ML IV SCH ×2 (13:35→22:12)
[2018-12-30] MEDS: FOLVITE PO SCH (13:35)
[2018-12-30] MEDS: HALFPRIN EC PO SCH (13:35)
[2018-12-30] MEDS: COLACE PO SCH ×2 (13:35→22:10)
[2018-12-30] MEDS: ZOLOFT PO SCH (13:35)
--- NOTE | 2018-12-30 15:24 | Consultation ---
History of Present Illness Consult date: 12/30/18 Chief complaint: sacral wound - History of present illness History of present illness: 63 yo M with hx of ESRD on HD, Afib, CVA, s/p CABG [facility] from [facility] with AMS and failure to thrive. He has been refusing to eat. He was found to have a necrotic sacral wound on evaluation by ingredient scaler and surgery is consulted. Patient is nonverbal and cannot provide any history. Past History Past Medical History: atrial fib, CAD, diabetes, ESRD, stroke, other (schizophrenia) Past Surgical History: Other (AV access) Social history: other (Resides at [facility]) Family history: no significant family history Medications and Allergies Allergies Allergy/AdvReac Type Severity Reaction Status Date / Time haloperidol [From Haldol] AdvReac Unknown Verified 03/13/18 12:10 haloperidol lactate AdvReac Unknown Verified 03/13/18 12:10 [From Haldol] Home Medications Medication Instructions Recorded Confirmed Last Taken Type risperiDONE [RisperDAL] 1 mg PO QAM 03/13/18 12/27/18 Unknown History Sertraline [Zoloft] 100 mg PO QDAY 08/26/18 12/27/18 Unknown History risperiDONE [RisperDAL] 0.5 mg PO HS 08/26/18 12/27/18 Unknown History Polyethylene Glycol 3350 [Miralax 17 gm PO QDAY #30 packet 11/05/18 12/27/18 Unknown Rx 3350] Aspirin EC 81 mg PO DAILY #30 11/19/18 12/27/18 Unknown Rx Docusate Sodium [Colace CAP] 100 mg PO BID #60 11/19/18 12/27/18 Unknown Rx Folic Acid [Folvite] 1 mg PO DAILY #30 tab 11/19/18 12/27/18 Unknown Rx Famotidine [Pepcid] 20 mg PO DAILY tablet 12/08/18 12/27/18 Unknown Rx Gabapentin [Neurontin] 100 mg PO QHS capsule 12/08/18 12/27/18 Unknown Rx Metoprolol [Lopressor TAB] 50 mg PO BID 30 Days tablet 12/08/18 12/27/18 Unknown Rx Sevelamer Carbonate [Renvela] 800 mg PO TIDWM tablet 12/08/18 12/27/18 Unknown Rx hydrALAZINE [Apresoline TAB] 100 mg PO Q8HR #120 tablet 12/08/18 12/27/18 Unknown Rx Acetaminophen [Acetaminophen TAB] 650 mg PO Q12H PRN 12/15/18 12/27/18 Unknown History Amino Acids/Protein Hydrolys 30 ml PO BID 12/15/18 12/27/18 Unknown History [Pro-Stat Sugar Free Liquid] Glucagon,Human Recombinant 1 mg IJ Q15MIN PRN 12/15/18 12/27/18 Unknown History [Glucagon Emergency Kit] Insulin Aspart [NovoLOG 100 See Protocol SQ QWEEK 12/15/18 12/27/18 Unknown History UNITS/ML VIAL] Epoetin Solitario 10,000 Unit [Procrit] 10,000 unit IV UMA PRN vial 12/18/18 12/27/18 Unknown Rx Lispro Insulin [HumaLOG] 0 unit SUB-Q ACHS units 12/18/18 12/27/18 Unknown Rx risperiDONE [RisperDAL] 0.5 mg PO QHS tablet 12/18/18 12/27/18 Unknown Rx Active Meds: Active Medications Acetaminophen (Tylenol) 650 mg PO Q4H PRN PRN Reason: Pain MILD(1-3)/Fever >100.5/HILL Last Admin: 12/29/18 12:29 Dose: 650 mg Documented by: Lipase/Protease/Amylase ([place] 10,500 Unit) 1 each FEEDTUBE PRN PRN PRN Reason: For Clogged Feeding Tube Aspirin (Halfprin Ec) 81 mg PO DAILY [facility] Last Admin: 12/30/18 13:35 Dose: 81 mg Documented by: Docusate Sodium (Colace) 100 mg PO BID [facility] Last Admin: 12/30/18 13:35 Dose: 100 mg Documented by: Famotidine (Pepcid) 20 mg PO DAILY [facility] Last Admin: 12/30/18 13:34 Dose: 20 mg Documented by: Folic Acid (Folvite) 1 mg PO DAILY [facility] Last Admin: 12/30/18 13:35 Dose: 1 mg Documented by: Gabapentin (Neurontin) 100 mg PO QHS [facility] Last Admin: 12/29/18 22:03 Dose: 100 mg Documented by: Glucagon (Glucagen) 1 mg IV Q15M PRN PRN Reason: Hypoglycemia (BG < 70) Heparin Sodium (Porcine) (Heparin) 5,000 unit SUB-Q Q12HR [facility] Last Admin: 12/30/18 13:34 Dose: 5,000 unit Documented by: Hydralazine HCl (Apresoline) 100 mg PO Q8HR [facility] Last Admin: 12/30/18 13:36 Dose: 100 mg Documented by: Hydromorphone HCl (Dilaudid) 0.25 mg IV Q3H PRN PRN Reason: Pain, Moderate (4-6) Last Admin: 12/29/18 05:38 Dose: 0.25 mg Documented by: Metoprolol Tartrate (Lopressor) 5 mg IV Q5MIN PRN PRN Reason: increased heart rate Last Admin: 12/29/18 05:41 Dose: 5 mg Documented by: Metoprolol Tartrate (Lopressor) 50 mg PO TID [facility] Last Admin: 12/30/18 13:35 Dose: Not Given Documented by: Ondansetron HCl (Zofran) 4 mg IV Q8H PRN PRN Reason: Nausea And Vomiting Polyethylene Glycol (Miralax 3350) 17 gm PO QDAY [facility] Last Admin: 12/30/18 13:34 Dose: 17 gm Documented by: Risperidone (Risperdal) 0.5 mg PO QHS [facility] Last Admin: 12/29/18 22:02 Dose: 0.5 mg Documented by: Risperidone (Risperdal) 1 mg PO QAM [facility] Last Admin: 12/30/18 13:34 Dose: 1 mg Documented by: Sertraline HCl (Zoloft) 100 mg PO QDAY [facility] Last Admin: 12/30/18 13:35 Dose: 100 mg Documented by: Simple Syrup (Simple Syrup) 15 ml FEEDTUBE PRN PRN PRN Reason: Hypoglycemia Simple Syrup (Simple Syrup) 30 ml FEEDTUBE PRN PRN PRN Reason: Hypoglycemia Sodium Bicarbonate (Sodium Bicarbonate) 325 mg FEEDTUBE PRN PRN PRN Reason: For Clogged Feeding Tube Sodium Chloride (Sodium Chloride Flush Syringe 10 Ml) 10 ml IV BID [facility] Last Admin: 12/30/18 13:35 Dose: 10 ml Documented by: Sodium Chloride (Sodium Chloride Flush Syringe 10 Ml) 10 ml IV PRN PRN PRN Reason: LINE FLUSH Review of Systems ROS unobtainable: due to mental status Exam Vital Signs Temp Pulse Resp BP Pulse Ox 100.1 F H 125 H 17 88/44 100 12/26/18 17:21 12/26/18 17:21 12/26/18 17:21 12/26/18 17:21 12/26/18 17:21 Narrative exam: Gen: Arousable and responds to name. NAD. Nonverbal CV: s1, S2+ resp: even and unlabored Abd: soft Ext: contracted upper and lower extremities Sacrum: unstageable sacral wound with overlying necrotic tissue and purulent drainage Results - Labs 12/27/18 07:04 12/27/18 07:04 Assessment and Plan 63 yo M with 1. unstageable sacral wound 2. malnutrition 3. failure to thrive 4. bedbound 5. AMS 6. ESRD on HD 7. hyponatremia Plan: 1. Sacral wound will need debridement. Likely infected. Will contact [facility] to obtain consent for debridement. Will attempt to perform at bedside tomorrow. 2. start empiric abx - vanco zosyn 3. recommend GI evaluation for PEG tube as patient is not eating, albumin 2.5 4. offloading, frequent turning 5. IVF 6. DVT ppx 7. recommend MRI of sacrum to r/o osteo Thank you, please call with questions.
[2018-12-30] MEDS ORDERED: VANCOMYCIN PHARMACY TO DOSE IV SCH (18:00)
[2018-12-30] MEDS ORDERED: VANCOMYCIN 1,500 MG in NACL 0.9% 500 ML 500 ML IV ONE (20:00)
[2018-12-30] MEDS: ZOSYN/NS 2.25 GM/50ML 2.25 GM/50 ML BAG IV SCH ×2 (22:15)
[2018-12-31] MEDS: APRESOLINE PO SCH ×5 (02:47→22:32)
[2018-12-31] MEDS: LOPRESSOR PO SCH ×3 (02:48→22:33)
[2018-12-31] MEDS: NEURONTIN PO SCH ×2 (02:53→22:33)
[2018-12-31] MEDS: RisperDAL PO SCH ×3 (02:53→22:30)
[2018-12-31] MEDS: HEPARIN SUB-Q SCH ×2 (09:09→22:33)
[2018-12-31] MEDS: HALFPRIN EC PO SCH (09:09)
[2018-12-31] MEDS: ZOLOFT PO SCH (09:09)
[2018-12-31] MEDS: SODIUM CHLORIDE FLUSH SYRINGE 10 ML IV SCH ×2 (09:09→22:36)
[2018-12-31] MEDS: FOLVITE PO SCH (09:09)
[2018-12-31] MEDS: PEPCID PO SCH (09:09)
[2018-12-31] MEDS: COLACE PO SCH ×2 (09:09→22:32)
[2018-12-31] MEDS: MIRALAX 3350 PO SCH (09:09)
--- NOTE | 2018-12-31 11:34 | Progress Note ---
Assessment and Plan Pt in AFib with RVR and acute HFrEF. Optimize BPs and HR - increase lopressor dosage and give IV amio bolus x 1 now. Volume optimization per nephrology. Pt appears to be a poor candidate for long-term OAC in setting of mental status, anemia, thrombocytopenia, and multiple co-morbidities. The patient has been seen in conjunction with Dr. Martin who agrees with the assessment and plan of care. - Patient Problems (1) Atrial fibrillation with RVR Current Visit: Yes Status: Acute (2) History of loop recorder Current Visit: Yes Status: Chronic (3) Acute HFrEF (heart failure with reduced ejection fraction) Current Visit: Yes Status: Acute (4) Cardiomyopathy Current Visit: Yes Status: Chronic (5) Altered mental status Current Visit: Yes Status: Acute Qualifiers: Altered mental status type: unspecified Qualified Code(s): R41.82 - Altered mental status, unspecified (6) ESRD (end stage renal disease) on dialysis Current Visit: Yes Status: Chronic (7) Diabetes Current Visit: Yes Status: Chronic (8) History of CVA (cerebrovascular accident) Current Visit: Yes Status: Chronic (9) Legally blind Current Visit: Yes Status: Chronic (10) Anemia Current Visit: Yes Status: Chronic Qualifiers: Anemia type: unspecified type Qualified Code(s): D64.9 - Anemia, unspecified (11) Thrombocytopenia Current Visit: Yes Status: Chronic (12) NSTEMI (non-ST elevated myocardial infarction) Current Visit: Yes Status: Acute (13) Lactic acidosis Current Visit: Yes Status: Acute Subjective Date of service: 12/31/18 Principal diagnosis: AMS; AFib Interval history: pt resting in bed, moaning, nonverbal. in AFib with RVR on telemetry. no family at bedside. Objective Last Vital Signs Temp 98.4 F 12/31/18 07:52 Pulse 129 H 12/31/18 07:52 Resp 20 12/31/18 07:52 BP 164/81 12/31/18 07:52 Pulse Ox 98 12/31/18 07:52 - Physical Examination General: Other (moaning, nonverbal) Cardiac: Positive: irregularly irregular, S1/S2, Tachycardia Lungs: Positive: Decreased Breath Sounds Neuro: Positive: Other (nonverbal) Skin: Negative: Rash Extremities: Absent: edema - Imaging and Cardiology EKG: report reviewed, image reviewed Echo: report reviewed (Echo done 12/16/2018 showed EF 35-40%, mild LVH, RV systolic function mod reduced, RA mildly dilated, pulm HTN with RVSP 53mmHg, large pleural effusion, markedly increased RA pressure. )
[2018-12-31] MEDS ORDERED: XYLOCAINE TOPICAL 4% TP SCH (12:04)
--- NOTE | 2018-12-31 12:09 | Event Note ---
Date: 12/31/18 Called CL Mims at phone number listed in system and went to . I left a and will try calling back later today or tomorrow to obtain consent for sacral wound debridement.
--- NOTE | 2018-12-31 12:59 | Progress Note ---
Assessment and Plan Assessment and plan: 63-year-old -[place] male with multiple medical problems sent from [facility] for altered sensorium and decreased responsiveness. Patient end-stage renal disease hypertension insulin-dependent diabetes COPD and CHF. No fever or chills. Decreased responsive and not eating at all for the last 36 hours. No shortness of breath. No chest pain. Patient has failure to thrive, altered mentation and weight loss of 20 pounds since 12/08/2018. sacral decub, POA, stage 2-3 worsening, cont wound care Acute encephalopathy Secondary to uremia, and FTT, improving Patient is on HD Nephrology consult appreciated Acute exacerbation of CHF (congestive heart failure), and rapid Afib cont hd, optimize meds per cardiology ESRD needing dialysis Continue hemo dialysis Insulin dependent diabetes mellitus - A1c is 4.2 insulin was dc FTT, malnutrition -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, cont oral diet, forensic ballistics expert input appreciated Hypertension Continue antihypertensives Peripheral neuropathy Continue gabapentin Anemia Continue epoetin Elevated lactic acid level Sepsis unlikely, resolved Elevated troponin Secondary to end-stage renal disease, chf and afib, cardiology input appreciated DVT prophylaxis On heparin and GI prophylaxis History Interval history: continues to have weakness opens eyes and is verbal , no fevers, no vomiting, no seizures Hospitalist Physical - Physical exam Narrative exam: appears chronically ill Vital signs as documented. Head exam is unremarkable., opens eyes, says Fede, does not seem to understand his medical condition No scleral icterus . Neck is without jugular venous distension, thyromegaly, or carotid bruits. Lungs are clear to auscultation. Cardiac exam reveals regular rate and Rhythm. First and second heart sounds normal. No murmurs, rubs or gallops. Abdominal exam reveals normal bowel sounds, no masses, no organomegaly and no aortic enlargement. Extremities are nonedematous and both femoral and pedal pulses are normal. ADMISSION SPECIALIST: Lethargic now, only says Fede, unable to have complex conversation - Constitutional Vitals: Temp Pulse Resp BP Pulse Ox 98.4 F 129 H 20 164/81 98 12/31/18 07:52 12/31/18 07:52 12/31/18 07:52 12/31/18 07:52 12/31/18 07:52 General appearance: Present: no acute distress, cachectic, disheveled Results - Labs CBC & Chem 7: 01/07/19 00:45 01/07/19 11:16 Labs: Laboratory Last Values WBC 10.6 K/mm3 (4.5-11.0) 12/27/18 07:04 RBC 3.60 M/mm3 (3.65-5.03) L 12/27/18 07:04 Hgb 9.2 gm/dl (11.8-15.2) L 12/27/18 07:04 Hct 29.4 % (35.5-45.6) L 12/27/18 07:04 MCV 82 fl (84-94) L 12/27/18 07:04 MCH 26 pg (28-32) L 12/27/18 07:04 MCHC 31 % (32-34) L 12/27/18 07:04 RDW 20.9 % (13.2-15.2) H 12/27/18 07:04 Plt Count 128 K/mm3 (140-440) L 12/27/18 07:04 Lymph % (Auto) School Bus Driver/Teacher Assistant 12/27/18 07:04 Walker % (Auto) School Bus Driver/Teacher Assistant 12/27/18 07:04 Eos % (Auto) School Bus Driver/Teacher Assistant 12/27/18 07:04 Baso % (Auto) School Bus Driver/Teacher Assistant 12/27/18 07:04 Lymph # School Bus Driver/Teacher Assistant 12/27/18 07:04 Walker # School Bus Driver/Teacher Assistant 12/27/18 07:04 Eos # School Bus Driver/Teacher Assistant 12/27/18 07:04 Baso # School Bus Driver/Teacher Assistant 12/27/18 07:04 Seg Neutrophils % School Bus Driver/Teacher Assistant 12/27/18 07:04 Seg Neutrophils # School Bus Driver/Teacher Assistant 12/27/18 07:04 Sodium 130 mmol/L (137-145) L 12/27/18 07:04 Potassium 4.6 mmol/L (3.6-5.0) 12/27/18 07:04 Chloride 90.9 mmol/L (98-107) L 12/27/18 07:04 Carbon Dioxide 22 mmol/L (22-30) 12/27/18 07:04 22 mmol/L 12/27/18 07:04 BUN 42 mg/dL (9-20) H 12/27/18 07:04 5.6 mg/dL (0.8-1.5) H 12/27/18 07:04 Estimated GFR 12 ml/min 12/27/18 07:04 8 % 12/27/18 07:04 Glucose 97 mg/dL (75-100) 12/27/18 07:04 POC Glucose 166 (70-105) H 12/31/18 12:29 < 4.2 % (4-6) 12/26/18 17:12 Lactic Acid 1.10 mmol/L (0.7-2.0) 12/27/18 07:04 Calcium 9.7 mg/dL (8.4-10.2) 12/27/18 07:04 0.50 mg/dL (0.1-1.2) 12/27/18 07:04 AST 12 units/L (5-40) 12/27/18 07:04 ALT < 5 units/L (7-56) L 12/27/18 07:04 103 units/L (35-129) 12/27/18 07:04 29 units/L (55-170) L 12/26/18 17:12 0.158 ng/mL (0.00-0.029) H* 12/26/18 17:12 6.5 g/dL (6.3-8.2) 12/27/18 07:04 2.5 g/dL (3.9-5) L 12/27/18 07:04 0.6 % 12/27/18 07:04 Triglycerides 75 mg/dL (2-149) 12/26/18 17:12 Cholesterol 109 mg/dL (50-199) 12/26/18 17:12 43 mg/dL (50-130) L 12/26/18 17:12 41 mg/dL (40-59) 12/26/18 17:12 2.65 % 12/26/18 17:12 Active Medications - Current Medications Current Medications: Generic Name Dose Route Start Last Admin Trade Name Freq PRN Reason Stop Dose Admin Acetaminophen 650 mg 12/26/18 21:40 12/29/18 12:29 Tylenol PO 650 mg Q4H PRN Administration Pain MILD(1-3)/Fever >100.5/HILL Lipase/Protease/Amylase 1 each 12/27/18 17:37 Pancreaze 10,500 Unit FEEDTUBE PRN PRN For Clogged Feeding Tube Aspirin 81 mg 12/27/18 10:00 12/31/18 09:09 Halfprin Ec PO 81 mg DAILY SANCHEZ Administration Docusate Sodium 100 mg 12/26/18 22:00 12/31/18 09:09 Colace PO 100 mg BID SANCHEZ Administration Famotidine 20 mg 12/27/18 10:00 12/31/18 09:09 Pepcid PO 20 mg DAILY SANCHEZ Administration Folic Acid 1 mg 12/27/18 10:00 12/31/18 09:09 Folvite PO 1 mg DAILY SANCHEZ Administration Gabapentin 100 mg 12/26/18 22:00 12/31/18 02:53 Neurontin PO Not Given QHS SANCHEZ Glucagon 1 mg 12/26/18 21:55 Glucagen IV Q15M PRN Hypoglycemia (BG < 70) Heparin Sodium (Porcine) 5,000 unit 12/26/18 22:00 12/31/18 09:09 Heparin SUB-Q 5,000 unit Q12HR SANCHEZ Administration Hydralazine HCl 100 mg 12/26/18 22:00 12/31/18 06:30 Apresoline PO 100 mg Q8HR SANCHEZ Administration Hydromorphone HCl 0.25 mg 12/26/18 21:40 12/29/18 05:38 Dilaudid IV 0.25 mg Q3H PRN Administration Pain, Moderate (4-6) Piperacillin Sod/Tazobactam Sod 2.25 gm in 50 mls @ 100 mls/hr 12/31/18 14:00 Zosyn/Ns 2.25 Gm/50ml IV Q8HR [facility] Protocol Amiodarone HCl 150 mg/ 100 mls @ 600 mls/hr 12/31/18 13:03 Dextrose IV 12/31/18 13:12 ONCE ONE Lidocaine HCl 2.5 ml 12/31/18 12:04 Xylocaine Topical 4% TP 12/31/18 23:00 ONCE SANCHEZ Metoprolol Tartrate 5 mg 12/27/18 18:55 12/29/18 05:41 Lopressor IV 5 mg Q5MIN PRN Administration increased heart rate Metoprolol Tartrate 100 mg 12/31/18 22:00 Lopressor PO BID [facility] Ondansetron HCl 4 mg 12/26/18 21:40 Zofran IV Q8H PRN Nausea And Vomiting Polyethylene Glycol 17 gm 12/27/18 10:00 12/31/18 09:09 Miralax 3350 PO 17 gm QDAY SANCHEZ Administration Risperidone 0.5 mg 12/26/18 22:00 12/31/18 02:53 Risperdal PO Not Given QHS SANCHEZ Risperidone 1 mg 12/27/18 10:00 12/31/18 09:09 Risperdal PO 1 mg QAM SANCHEZ Administration Sertraline HCl 100 mg 12/27/18 10:00 12/31/18 09:09 Zoloft PO 100 mg QDAY SANCHEZ Administration Simple Syrup 15 ml 12/27/18 17:37 Simple Syrup FEEDTUBE PRN PRN Hypoglycemia Simple Syrup 30 ml 12/27/18 17:37 Simple Syrup FEEDTUBE PRN PRN Hypoglycemia Sodium Bicarbonate 325 mg 12/27/18 17:37 Sodium Bicarbonate FEEDTUBE PRN PRN For Clogged Feeding Tube Sodium Chloride 10 ml 12/26/18 22:00 12/31/18 09:09 Sodium Chloride Flush Syringe 10 Ml IV 10 ml BID SANCHEZ Administration Sodium Chloride 10 ml 12/26/18 21:40 Sodium Chloride Flush Syringe 10 Ml IV PRN PRN LINE FLUSH Nutrition/Malnutrition Assess - Dietary Evaluation Nutrition/Malnutrition Findings: Nutrition Notes Start: 12/27/18 17:15 Freq: Status: Active Protocol: Document 12/29/18 14:16 OH (Rec: 12/29/18 14:26 OH [id number]) Nutrition Notes Initial or Follow up Reassessment Labs/Tests alb 2.5 K+ 4.6 Pertinent Medications Reviewed Height 5 ft 7 in Weight 90.1 kg [place] Body Weight (kg) 67.27 BMI 31.1 Subjective/Other Information f/u: Pt. sitting up in bed. Pt . not answering questions appropriately. Pt. resides @ [facility]. Nepro d/c'd due to patient unable to tolerate. ST assessed pt and he passed the swallow test. Difficulty In Swallowing,Chewing Current % PO Poor (25-49%) #1 Nutrition Diagnosis Increased nutrient needs ( specify in comment below) Etiology increased PRO needs As Evidenced by Signs and Symptoms sacral wound Additional Notes Protein Needs: 95-119g (1.2-1 .5g/kg 79kg adjBW) Fluid Needs: 1 ml/kcal Nutrition Intervention Change Diet Order: Renal Puree/nectar thickened liquids Add Supplement/Snack (indicate name/kcal nepro vanilla q daily /protein ) Provides kCal: 425 Provides Protein (gm) 19 Goal #1 Meet >75% PRO/KCAL needs via po Anticipated Discharge Needs: Unable to determine at this time Follow-Up By: 12/31/18 Additional Comments f/u: assess for po intake
[2018-12-31] MEDS ORDERED: CORDARONE 150 MG in D5W 97 ML IV ONE (13:03)
--- NOTE | 2018-12-31 13:16 | Progress Note ---
Subjective Principal diagnosis: AMS; AFib Interval history: Patient was seen today for follow-up on multiple renal related issues Events of this hospitalization noted Patient is on dialysis Saturday Patient was also seen in supervised on hemodialysis He is alert and awake Patient denies having any chest pain pressure or shortness of breath Vitals labs intake output medications were reviewed Social history: Reviewed Allergies: Reviewed Family history: Reviewed Physical examination HEENT: Oral mucosa moist no pallor or icterus Neck: Supple no JVD Chest: Clear to auscultation anteriorly CVS: Regular rate and rhythm S1 and S2 heard Abdomen: Soft nontender no suprapubic masses no organomegaly appreciable Extremity: Dry skin less than 1+ peripheral edema Chronic upper extremity swelling Musculoskeletal: No joint effusion noted in knees and ankle Neurological: Alert awake Dermatology: No petechial rashes Psychiatry: No evidence of any agitation and aggression noted Assessment and plan; End-stage renal disease: Patient will continue with hemodialysis on Saturday and Saturday, with a central venous catheter He does have some chronic swelling of his upper extremity which is likely due to vascular issues and he may benefit from a vascular Doppler and a vascular surgery evaluation Admitted with altered mental status patient clinically appears to be doing better November 2018 ejection fraction is between 35-40% cardiology findings reviewed Chronic history of atrial fibrillation I believe patient's health in general has been declining due to multiple comorbidities including dialysis status, diabetes CVA, his mental status appears to be at the baseline to me he is alert awake Avoid any form of sedative or hypnotics Due to end-stage renal disease and related comorbidities his prognosis appears to be very poor Would like to avoid Renvela altogether due to GI toxicity and this can also cause poor appetite, patient is being followed by gastroenterology service Anemia in end-stage renal disease: Monitor hemoglobin and hematocrit, erythropoietin as needed atrial fibrillation variable response rate, being followed by cardiology sacral decubitus being followed by general surgery for debridement We'll continue to follow and make recommendation from renal standpoint Objective - Vital Signs Vital signs: Vital Signs - 12hr 12/31/18 12/31/18 12/31/18 02:48 04:15 07:52 Temperature 98.6 F 98.4 F Pulse Rate 99 H 97 H 129 H Respiratory 20 20 Rate Blood Pressure 135/73 164/81 O2 Sat by Pulse 100 98 Oximetry - Lab 12/27/18 07:04 12/27/18 07:04 Most recent lab results Calcium 9.7 mg/dL (8.4-10.2) 12/27/18 07:04 Medications & Allergies - Medications Allergies/Adverse Reactions: Allergies haloperidol [From Haldol] Adverse Reaction (Verified 03/13/18 12:10) Unknown haloperidol lactate [From Haldol] Adverse Reaction (Verified 03/13/18 12:10) Unknown Home Medications: Home Medications Medication Instructions Recorded Confirmed Last Taken Type risperiDONE [RisperDAL] 1 mg PO QAM 03/13/18 12/27/18 Unknown History Sertraline [Zoloft] 100 mg PO QDAY 08/26/18 12/27/18 Unknown History risperiDONE [RisperDAL] 0.5 mg PO HS 08/26/18 12/27/18 Unknown History Polyethylene Glycol 3350 [Miralax 17 gm PO QDAY #30 packet 11/05/18 12/27/18 Unknown Rx 3350] Aspirin EC 81 mg PO DAILY #30 11/19/18 12/27/18 Unknown Rx Docusate Sodium [Colace CAP] 100 mg PO BID #60 11/19/18 12/27/18 Unknown Rx Folic Acid [Folvite] 1 mg PO DAILY #30 tab 11/19/18 12/27/18 Unknown Rx Famotidine [Pepcid] 20 mg PO DAILY tablet 12/08/18 12/27/18 Unknown Rx Gabapentin [Neurontin] 100 mg PO QHS capsule 12/08/18 12/27/18 Unknown Rx Metoprolol [Lopressor TAB] 50 mg PO BID 30 Days tablet 12/08/18 12/27/18 Unknown Rx Sevelamer Carbonate [Renvela] 800 mg PO TIDWM tablet 12/08/18 12/27/18 Unknown Rx hydrALAZINE [Apresoline TAB] 100 mg PO Q8HR #120 tablet 12/08/18 12/27/18 Unknown Rx Acetaminophen [Acetaminophen TAB] 650 mg PO Q12H PRN 12/15/18 12/27/18 Unknown History Amino Acids/Protein Hydrolys 30 ml PO BID 12/15/18 12/27/18 Unknown History [Pro-Stat Sugar Free Liquid] Glucagon,Human Recombinant 1 mg IJ Q15MIN PRN 12/15/18 12/27/18 Unknown History [Glucagon Emergency Kit] Insulin Aspart [NovoLOG 100 See Protocol SQ QWEEK 12/15/18 12/27/18 Unknown History UNITS/ML VIAL] Epoetin Solitario 10,000 Unit [Procrit] 10,000 unit IV UMA PRN vial 12/18/18 12/27/18 Unknown Rx Lispro Insulin [HumaLOG] 0 unit SUB-Q ACHS units 12/18/18 12/27/18 Unknown Rx risperiDONE [RisperDAL] 0.5 mg PO QHS tablet 12/18/18 12/27/18 Unknown Rx Active Medications: Generic Name Dose Route Start Last Admin Trade Name Freq PRN Reason Stop Dose Admin Acetaminophen 650 mg 12/26/18 21:40 12/29/18 12:29 Tylenol PO 650 mg Q4H PRN Administration Pain MILD(1-3)/Fever >100.5/HILL Lipase/Protease/Amylase 1 each 12/27/18 17:37 Pancreaze 10,500 Unit FEEDTUBE PRN PRN For Clogged Feeding Tube Aspirin 81 mg 12/27/18 10:00 12/31/18 09:09 Halfprin Ec PO 81 mg DAILY SANCHEZ Administration Docusate Sodium 100 mg 12/26/18 22:00 12/31/18 09:09 Colace PO 100 mg BID SANCHEZ Administration Famotidine 20 mg 12/27/18 10:00 12/31/18 09:09 Pepcid PO 20 mg DAILY SANCHEZ Administration Folic Acid 1 mg 12/27/18 10:00 12/31/18 09:09 Folvite PO 1 mg DAILY SANCHEZ Administration Gabapentin 100 mg 12/26/18 22:00 12/31/18 02:53 Neurontin PO Not Given QHS SANCHEZ Glucagon 1 mg 12/26/18 21:55 Glucagen IV Q15M PRN Hypoglycemia (BG < 70) Heparin Sodium (Porcine) 5,000 unit 12/26/18 22:00 12/31/18 09:09 Heparin SUB-Q 5,000 unit Q12HR SANCHEZ Administration Hydralazine HCl 100 mg 12/26/18 22:00 12/31/18 06:30 Apresoline PO 100 mg Q8HR SANCHEZ Administration Hydromorphone HCl 0.25 mg 12/26/18 21:40 12/29/18 05:38 Dilaudid IV 0.25 mg Q3H PRN Administration Pain, Moderate (4-6) Piperacillin Sod/Tazobactam Sod 2.25 gm in 50 mls @ 100 mls/hr 12/31/18 14:00 Zosyn/Ns 2.25 Gm/50ml IV Q8HR SANCHEZ Protocol Lidocaine HCl 2.5 ml 12/31/18 12:04 Xylocaine Topical 4% TP 12/31/18 23:00 ONCE SANCHEZ Metoprolol Tartrate 5 mg 12/27/18 18:55 12/29/18 05:41 Lopressor IV 5 mg Q5MIN PRN Administration increased heart rate Metoprolol Tartrate 100 mg 12/31/18 22:00 Lopressor PO BID SANCHEZ Ondansetron HCl 4 mg 12/26/18 21:40 Zofran IV Q8H PRN Nausea And Vomiting Polyethylene Glycol 17 gm 12/27/18 10:00 12/31/18 09:09 Miralax 3350 PO 17 gm QDAY SANCHEZ Administration Risperidone 0.5 mg 12/26/18 22:00 12/31/18 02:53 Risperdal PO Not Given QHS SANCHEZ Risperidone 1 mg 12/27/18 10:00 12/31/18 09:09 Risperdal PO 1 mg QAM SANCHEZ Administration Sertraline HCl 100 mg 12/27/18 10:00 12/31/18 09:09 Zoloft PO 100 mg QDAY SANCHEZ Administration Simple Syrup 15 ml 12/27/18 17:37 Simple Syrup FEEDTUBE PRN PRN Hypoglycemia Simple Syrup 30 ml 12/27/18 17:37 Simple Syrup FEEDTUBE PRN PRN Hypoglycemia Sodium Bicarbonate 325 mg 12/27/18 17:37 Sodium Bicarbonate FEEDTUBE PRN PRN For Clogged Feeding Tube Sodium Chloride 10 ml 12/26/18 22:00 12/31/18 09:09 Sodium Chloride Flush Syringe 10 Ml IV 10 ml BID SANCHEZ Administration Sodium Chloride 10 ml 12/26/18 21:40 Sodium Chloride Flush Syringe 10 Ml IV PRN PRN LINE FLUSH
[2018-12-31] MEDS: ZOSYN/NS 2.25 GM/50ML 2.25 GM/50 ML BAG IV SCH ×2 (14:55→22:31)
--- NOTE | 2018-12-31 17:02 | Progress Note ---
Assessment and Plan 63 yo M with 1. unstageable sacral wound 2. malnutrition 3. failure to thrive 4. bedbound 5. AMS 6. ESRD on HD 7. hyponatremia Plan: 1. Sacral wound will need debridement. Likely infected. Spoke with CL Mims regarding debridement and he is agreeable to proceed - will perform debridement tomorrow 2. recommend GI consult for PEG tube placement 3. MRI pelvis pending to r/o osteo - Patient's nephew will fill forms out tomorrow 4. c/w IV abx 5. continue offloading and frequent turning of patient Thank you, please call with questions. Subjective Date of service: 12/31/18 Narrative: Pt seen and examined. Swallow evaluation showed that patient can take in nectar thick liquids with straw but nothing else PO safely. Speech therapy recommended another route for nutrition. Objective Vital Signs - 12hr 12/31/18 12/31/18 12/31/18 07:52 12:26 16:28 Temperature 98.4 F 97.9 F 98.4 F Pulse Rate 129 H 103 H 98 H Respiratory 20 18 18 Rate Blood Pressure 164/81 160/79 129/68 O2 Sat by Pulse 98 100 100 Oximetry - General physical appearance Narrative Exam: Gen; Eyes closed. NAD CV: S1, s2+ resp; even and unlabored Ext: no c/c/e - Labs 12/27/18 07:04 12/27/18 07:04
[2019-01-01] MEDS: APRESOLINE PO SCH ×3 (05:36→21:26)
[2019-01-01] MEDS: ZOSYN/NS 2.25 GM/50ML 2.25 GM/50 ML BAG IV SCH ×3 (08:00→21:23)
--- NOTE | 2019-01-01 09:18 | Progress Note ---
Subjective Principal diagnosis: AMS; AFib Interval history: Patient was seen today for follow-up on multiple renal related issues Events of this hospitalization noted Patient is on dialysis Saturday patient was also seen on hemodialysis Patient denies having any chest pain pressure or shortness of breath Vitals labs intake output medications were reviewed Social history: Reviewed Allergies: Reviewed Family history: Reviewed Physical examination HEENT: Oral mucosa moist no pallor or icterus Neck: Supple no JVD Chest: Clear to auscultation anteriorly CVS: Regular rate and rhythm S1 and S2 heard Abdomen: Soft nontender no suprapubic masses no organomegaly appreciable Extremity: Dry skin less than 1+ peripheral edema Chronic upper extremity swelling Musculoskeletal: No joint effusion noted in knees and ankle Neurological: Alert awake Dermatology: No petechial rashes Psychiatry: No evidence of any agitation and aggression noted Assessment and plan; End-stage renal disease: Patient will continue with hemodialysis 3 times a week on Saturday and Saturday schedule, patient does need lab periodically Seen and supervised on hemodialysis as well ultrafiltration goal was reduced to 1200 cc a day and will need to be adjusted periodically, Chronic swelling of the upper extremity likely resulting from, vascular stenosis: Patient may need to be seen by vascular surgery please obtain consultation Current dialysis access is a central venous catheter which is working well Encephalopathy chronic with periodic worsening, patient was also seen and supervised on hemodialysis he was arousable Patient was also aware that he is on dialysis Atrial fibrillation with variable response rate, being followed by cardiology, heart rate currently around 115 blood pressure is stable Congestive heart failure ejection fraction 35-40% Sacral wound being followed by general surgery Malnutrition risk: High patient is to be maintained on high protein diet, probably 1.5 g protein per KG body weight, patient is currently being followed by gastroenterology services Possibly may require PEG placement Hypertension and volume: Goal systolic blood pressure currently less than 140 systolic at this time, diet plan was discussed with patient all questions were answered advised to maintain fluid restriction stated high-protein diet sodium restriction daily weight monitoring daily blood pressure monitoring was discussed with patient Overall prognosis guarded to poor due to age and multiple comorbidities and dialysis status We'll continue to follow and make recommendation from renal standpoint Objective - Vital Signs Vital signs: Vital Signs - 12hr 12/31/18 12/31/18 01/01/19 22:33 23:24 04:18 Temperature 98.7 F 98.7 F Pulse Rate 88 100 H 101 H Respiratory 18 18 Rate Blood Pressure 136/56 138/62 152/69 O2 Sat by Pulse 100 100 Oximetry 01/01/19 07:53 Temperature 98.0 F Pulse Rate 102 H Respiratory 20 Rate Blood Pressure 147/73 O2 Sat by Pulse 100 Oximetry - Lab 12/27/18 07:04 12/27/18 07:04 Most recent lab results Calcium 9.7 mg/dL (8.4-10.2) 12/27/18 07:04 Medications & Allergies - Medications Allergies/Adverse Reactions: Allergies haloperidol [From Haldol] Adverse Reaction (Verified 03/13/18 12:10) Unknown haloperidol lactate [From Haldol] Adverse Reaction (Verified 03/13/18 12:10) Unknown Home Medications: Home Medications Medication Instructions Recorded Confirmed Last Taken Type risperiDONE [RisperDAL] 1 mg PO QAM 03/13/18 12/27/18 Unknown History Sertraline [Zoloft] 100 mg PO QDAY 08/26/18 12/27/18 Unknown History risperiDONE [RisperDAL] 0.5 mg PO HS 08/26/18 12/27/18 Unknown History Polyethylene Glycol 3350 [Miralax 17 gm PO QDAY #30 packet 11/05/18 12/27/18 Unknown Rx 3350] Aspirin EC 81 mg PO DAILY #30 11/19/18 12/27/18 Unknown Rx Docusate Sodium [Colace CAP] 100 mg PO BID #60 11/19/18 12/27/18 Unknown Rx Folic Acid [Folvite] 1 mg PO DAILY #30 tab 11/19/18 12/27/18 Unknown Rx Famotidine [Pepcid] 20 mg PO DAILY tablet 12/08/18 12/27/18 Unknown Rx Gabapentin [Neurontin] 100 mg PO QHS capsule 12/08/18 12/27/18 Unknown Rx Metoprolol [Lopressor TAB] 50 mg PO BID 30 Days tablet 12/08/18 12/27/18 Unknown Rx Sevelamer Carbonate [Renvela] 800 mg PO TIDWM tablet 12/08/18 12/27/18 Unknown Rx hydrALAZINE [Apresoline TAB] 100 mg PO Q8HR #120 tablet 12/08/18 12/27/18 Unknown Rx Acetaminophen [Acetaminophen TAB] 650 mg PO Q12H PRN 12/15/18 12/27/18 Unknown History Amino Acids/Protein Hydrolys 30 ml PO BID 12/15/18 12/27/18 Unknown History [Pro-Stat Sugar Free Liquid] Glucagon,Human Recombinant 1 mg IJ Q15MIN PRN 12/15/18 12/27/18 Unknown History [Glucagon Emergency Kit] Insulin Aspart [NovoLOG 100 See Protocol SQ QWEEK 12/15/18 12/27/18 Unknown History UNITS/ML VIAL] Epoetin Solitario 10,000 Unit [Procrit] 10,000 unit IV UMA PRN vial 12/18/18 12/27/18 Unknown Rx Lispro Insulin [HumaLOG] 0 unit SUB-Q ACHS units 12/18/18 12/27/18 Unknown Rx risperiDONE [RisperDAL] 0.5 mg PO QHS tablet 12/18/18 12/27/18 Unknown Rx Active Medications: Generic Name Dose Route Start Last Admin Trade Name Freq PRN Reason Stop Dose Admin Acetaminophen 650 mg 12/26/18 21:40 12/29/18 12:29 Tylenol PO 650 mg Q4H PRN Administration Pain MILD(1-3)/Fever >100.5/HILL Lipase/Protease/Amylase 1 each 12/27/18 17:[address] 10,500 Unit FEEDTUBE PRN PRN For Clogged Feeding Tube Aspirin 81 mg 12/27/18 10:00 12/31/18 09:09 Halfprin Ec PO 81 mg DAILY SANCHEZ Administration Docusate Sodium 100 mg 12/26/18 22:00 12/31/18 22:32 Colace PO 100 mg BID SANCHEZ Administration Famotidine 20 mg 12/27/18 10:00 12/31/18 09:09 Pepcid PO 20 mg DAILY SANCHEZ Administration Folic Acid 1 mg 12/27/18 10:00 12/31/18 09:09 Folvite PO 1 mg DAILY SANCHEZ Administration Gabapentin 100 mg 12/26/18 22:00 12/31/18 22:33 Neurontin PO 100 mg QHS SANCHEZ Administration Glucagon 1 mg 12/26/18 21:55 Glucagen IV Q15M PRN Hypoglycemia (BG < 70) Heparin Sodium (Porcine) 5,000 unit 12/26/18 22:00 12/31/18 22:33 Heparin SUB-Q 5,000 unit Q12HR SANCHEZ Administration Hydralazine HCl 100 mg 12/26/18 22:00 01/01/19 05:36 Apresoline PO 100 mg Q8HR SANCHEZ Administration Hydromorphone HCl 0.25 mg 12/26/18 21:40 12/29/18 05:38 Dilaudid IV 0.25 mg Q3H PRN Administration Pain, Moderate (4-6) Piperacillin Sod/Tazobactam Sod 2.25 gm in 50 mls @ 100 mls/hr 12/31/18 14:00 01/01/19 08:00 Zosyn/Ns 2.25 Gm/50ml IV Not Given Q8HR [facility] Protocol Metoprolol Tartrate 5 mg 12/27/18 18:55 12/29/18 05:41 Lopressor IV 5 mg Q5MIN PRN Administration increased heart rate Metoprolol Tartrate 100 mg 12/31/18 22:00 12/31/18 22:33 Lopressor PO 100 mg BID SANCHEZ Administration Ondansetron HCl 4 mg 12/26/18 21:40 Zofran IV Q8H PRN Nausea And Vomiting Polyethylene Glycol 17 gm 12/27/18 10:00 12/31/18 09:09 Miralax 3350 PO 17 gm QDAY SANCHEZ Administration Risperidone 0.5 mg 12/26/18 22:00 12/31/18 22:30 Risperdal PO 0.5 mg QHS SANCHEZ Administration Risperidone 1 mg 12/27/18 10:00 12/31/18 09:09 Risperdal PO 1 mg QAM SANCHEZ Administration Sertraline HCl 100 mg 12/27/18 10:00 12/31/18 09:09 Zoloft PO 100 mg QDAY SANCHEZ Administration Simple Syrup 15 ml 12/27/18 17:37 Simple Syrup FEEDTUBE PRN PRN Hypoglycemia Simple Syrup 30 ml 12/27/18 17:37 Simple Syrup FEEDTUBE PRN PRN Hypoglycemia Sodium Bicarbonate 325 mg 12/27/18 17:37 Sodium Bicarbonate FEEDTUBE PRN PRN For Clogged Feeding Tube Sodium Chloride 10 ml 12/26/18 22:00 12/31/18 22:36 Sodium Chloride Flush Syringe 10 Ml IV Not Given BID SANCHEZ Sodium Chloride 10 ml 12/26/18 21:40 Sodium Chloride Flush Syringe 10 Ml IV PRN PRN LINE FLUSH
[2019-01-01] MEDS: COLACE PO SCH ×2 (10:00→21:25)
[2019-01-01] MEDS: LOPRESSOR PO SCH ×2 (10:00→21:25)
[2019-01-01] MEDS: HEPARIN SUB-Q SCH ×2 (10:00→21:25)
--- NOTE | 2019-01-01 10:35 | Progress Note ---
Assessment and Plan Assessment and plan: 63-year-old -[place] male with multiple medical problems sent from [facility] for altered sensorium and decreased responsiveness. Patient end-stage renal disease hypertension insulin-dependent diabetes COPD and CHF. No fever or chills. Decreased responsive and not eating at all for the last 36 hours. No shortness of breath. No chest pain. Patient has failure to thrive, altered mentation and weight loss of 20 pounds since 12/08/2018. fever; w/o in progress sacral decub, POA, stage 2-3 worsening, cont wound care Acute encephalopathy Secondary to uremia, and FTT, improving Patient is on HD Nephrology consult appreciated Acute exacerbation of CHF (congestive heart failure), and rapid Afib cont hd, optimize meds per cardiology ESRD needing dialysis Continue hemo dialysis Insulin dependent diabetes mellitus - A1c is 4.2 insulin was dc FTT, severe malnutrition -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, cont oral diet, advice nurse input appreciated for peg placement in am Hypertension Continue antihypertensives Peripheral neuropathy Continue gabapentin Anemia Continue epoetin Elevated lactic acid level Sepsis unlikely, resolved Elevated troponin Secondary to end-stage renal disease, chf and afib, cardiology input appreciated DVT prophylaxis On heparin and GI prophylaxis History Interval history: continues to have weakness opens eyes and is verbal , now having fevers, no vomiting, no seizures Hospitalist Physical - Physical exam Narrative exam: appears chronically ill Vital signs as documented. Head exam is unremarkable., opens eyes, says Fede, does not seem to understand his medical condition No scleral icterus . Neck is without jugular venous distension, thyromegaly, or carotid bruits. Lungs are clear to auscultation. Cardiac exam reveals regular rate and Rhythm. First and second heart sounds normal. No murmurs, rubs or gallops. Abdominal exam reveals normal bowel sounds, no masses, no organomegaly and no aortic enlargement. Extremities are nonedematous and both femoral and pedal pulses are normal. [employer]: Lethargic now, only says Fede, unable to have complex conversation - Constitutional Vitals: Temp Pulse Resp BP Pulse Ox 98.0 F 102 H 20 147/73 100 01/01/19 07:53 01/01/19 07:53 01/01/19 07:53 01/01/19 07:53 01/01/19 07:53 General appearance: Present: no acute distress, cachectic, disheveled Results - Labs CBC & Chem 7: 01/07/19 00:45 01/07/19 11:16 Labs: Laboratory Last Values WBC 10.6 K/mm3 (4.5-11.0) 12/27/18 07:04 RBC 3.60 M/mm3 (3.65-5.03) L 12/27/18 07:04 Hgb 9.2 gm/dl (11.8-15.2) L 12/27/18 07:04 Hct 29.4 % (35.5-45.6) L 12/27/18 07:04 MCV 82 fl (84-94) L 12/27/18 07:04 MCH 26 pg (28-32) L 12/27/18 07:04 MCHC 31 % (32-34) L 12/27/18 07:04 RDW 20.9 % (13.2-15.2) H 12/27/18 07:04 Plt Count 128 K/mm3 (140-440) L 12/27/18 07:04 Lymph % (Auto) [place] [employer] 12/27/18 07:04 Sharkey % (Auto) [employer] [employer] 12/27/18 07:04 Eos % (Auto) [place] [employer] 12/27/18 07:04 Baso % (Auto) [place] [employer] 12/27/18 07:04 Lymph # [place] [employer] 12/27/18 07:04 Sharkey # [place] [employer] 12/27/18 07:04 Eos # [place] [employer] 12/27/18 07:04 Baso # [place] [employer] 12/27/18 07:04 Seg Neutrophils % [place] [employer] 12/27/18 07:04 Seg Neutrophils # [place] [employer] 12/27/18 07:04 Sodium 130 mmol/L (137-145) L 12/27/18 07:04 Potassium 4.6 mmol/L (3.6-5.0) 12/27/18 07:04 Chloride 90.9 mmol/L (98-107) L 12/27/18 07:04 Carbon Dioxide 22 mmol/L (22-30) 12/27/18 07:04 22 mmol/L 12/27/18 07:04 BUN 42 mg/dL (9-20) H 12/27/18 07:04 5.6 mg/dL (0.8-1.5) H 12/27/18 07:04 Estimated GFR 12 ml/min 12/27/18 07:04 8 % 12/27/18 07:04 Glucose 97 mg/dL (75-100) 12/27/18 07:04 POC Glucose 101 (70-105) 01/01/19 08:19 < 4.2 % (4-6) 12/26/18 17:12 Lactic Acid 1.10 mmol/L (0.7-2.0) 12/27/18 07:04 Calcium 9.7 mg/dL (8.4-10.2) 12/27/18 07:04 0.50 mg/dL (0.1-1.2) 12/27/18 07:04 AST 12 units/L (5-40) 12/27/18 07:04 ALT < 5 units/L (7-56) L 12/27/18 07:04 103 units/L (35-129) 12/27/18 07:04 29 units/L (55-170) L 12/26/18 17:12 0.158 ng/mL (0.00-0.029) H* 12/26/18 17:12 6.5 g/dL (6.3-8.2) 12/27/18 07:04 2.5 g/dL (3.9-5) L 12/27/18 07:04 0.6 % 12/27/18 07:04 Triglycerides 75 mg/dL (2-149) 12/26/18 17:12 Cholesterol 109 mg/dL (50-199) 12/26/18 17:12 43 mg/dL (50-130) L 12/26/18 17:12 41 mg/dL (40-59) 12/26/18 17:12 2.65 % 12/26/18 17:12 Active Medications - Current Medications Current Medications: Generic Name Dose Route Start Last Admin Trade Name Freq PRN Reason Stop Dose Admin Acetaminophen 650 mg 12/26/18 21:40 12/29/18 12:29 Tylenol PO 650 mg Q4H PRN Administration Pain MILD(1-3)/Fever >100.5/HILL Lipase/Protease/Amylase 1 each 12/27/18 17:[address] 10,500 Unit FEEDTUBE PRN PRN For Clogged Feeding Tube Aspirin 81 mg 12/27/18 10:00 12/31/18 09:09 Halfprin Ec PO 81 mg DAILY SANCHEZ Administration Docusate Sodium 100 mg 12/26/18 22:00 12/31/18 22:32 Colace PO 100 mg BID SANCHEZ Administration Famotidine 20 mg 12/27/18 10:00 12/31/18 09:09 Pepcid PO 20 mg DAILY SANCHEZ Administration Folic Acid 1 mg 12/27/18 10:00 12/31/18 09:09 Folvite PO 1 mg DAILY SANCHEZ Administration Gabapentin 100 mg 12/26/18 22:00 12/31/18 22:33 Neurontin PO 100 mg QHS SANCHEZ Administration Glucagon 1 mg 12/26/18 21:55 Glucagen IV Q15M PRN Hypoglycemia (BG < 70) Heparin Sodium (Porcine) 5,000 unit 12/26/18 22:00 12/31/18 22:33 Heparin SUB-Q 5,000 unit Q12HR SANCHEZ Administration Hydralazine HCl 100 mg 12/26/18 22:00 01/01/19 05:36 Apresoline PO 100 mg Q8HR SANCHEZ Administration Hydromorphone HCl 0.25 mg 12/26/18 21:40 12/29/18 05:38 Dilaudid IV 0.25 mg Q3H PRN Administration Pain, Moderate (4-6) Piperacillin Sod/Tazobactam Sod 2.25 gm in 50 mls @ 100 mls/hr 12/31/18 14:00 01/01/19 08:00 Zosyn/Ns 2.25 Gm/50ml IV Not Given Q8HR [facility] Protocol Metoprolol Tartrate 5 mg 12/27/18 18:55 12/29/18 05:41 Lopressor IV 5 mg Q5MIN PRN Administration increased heart rate Metoprolol Tartrate 100 mg 12/31/18 22:00 12/31/18 22:33 Lopressor PO 100 mg BID SANCHEZ Administration Ondansetron HCl 4 mg 12/26/18 21:40 Zofran IV Q8H PRN Nausea And Vomiting Polyethylene Glycol 17 gm 12/27/18 10:00 12/31/18 09:09 Miralax 3350 PO 17 gm QDAY SANCHEZ Administration Risperidone 0.5 mg 12/26/18 22:00 12/31/18 22:30 Risperdal PO 0.5 mg QHS SANCHEZ Administration Risperidone 1 mg 12/27/18 10:00 12/31/18 09:09 Risperdal PO 1 mg QAM SANCHEZ Administration Sertraline HCl 100 mg 12/27/18 10:00 12/31/18 09:09 Zoloft PO 100 mg QDAY SANCHEZ Administration Simple Syrup 15 ml 12/27/18 17:37 Simple Syrup FEEDTUBE PRN PRN Hypoglycemia Simple Syrup 30 ml 12/27/18 17:37 Simple Syrup FEEDTUBE PRN PRN Hypoglycemia Sodium Bicarbonate 325 mg 12/27/18 17:37 Sodium Bicarbonate FEEDTUBE PRN PRN For Clogged Feeding Tube Sodium Chloride 10 ml 12/26/18 22:00 12/31/18 22:36 Sodium Chloride Flush Syringe 10 Ml IV Not Given BID SANCHEZ Sodium Chloride 10 ml 12/26/18 21:40 Sodium Chloride Flush Syringe 10 Ml IV PRN PRN LINE FLUSH Nutrition/Malnutrition Assess - Dietary Evaluation Nutrition/Malnutrition Findings: Nutrition Notes Start: 12/27/18 17:15 Freq: Status: Active Protocol: Document 12/31/18 15:22 EVELINE (Rec: 12/31/18 15:24 EVELINE [email or web address]) Nutrition Notes Initial or Follow up Brief Note Current Diagnosis CKD (stage V CKD),Diabetes, Hypertension Other Pertinent Diagnosis Sacral wound, FTT, acute encephalopathy Current Diet Renal pureed with nectar-thick liquids + Nepro daily Subjective/Other Information Pt consumed 75% of meals yesterday. He is sleeping soundly at time of visit (13: 10). Pt scheduled for debridement of sacral wound. Nutrition Intervention Follow-Up By: 01/02/19 Additional Comments F/U: intakes (meals/ONS)
--- NOTE | 2019-01-01 11:38 | Gastroenterology Consultation ---
<BELLA ARMAS - Last Filed: 01/01/19 11:56> History of Present Illness - Reason for Consult Consult date: 01/01/19 PEG placement Requesting physician: ZENY HINES - History of Present Illness Patient is a 63 y/o male alf resident with PMH of ESRD on HD, HTN, COPD, CHF, CAD, CVA, DM, Afib, anemia, hyperparathyroidism, hypocalcemia, legally blind, ? dementia, and schizophrenia who was brought to ED for AMS and decreased responsiveness, along with not eating. He was admitted and currently being treated for acute encephalopathy, HTN, sacral wound, malnutrition, and failure to thrive. He underwent a swallow evaluation that showed patient safe for nectar thick liquids, however he is unable to meet nutritional needs via PO with recommendations given by speech for an alternative means to which GI has been consulted for a PEG placement. This morning patient was resting in bed receiving dialysis w/o acute distress. No evidence of abd pain or N/V noted. Wt loss of ~20 lbs since 11/2018 per chart review. Past History Past Medical History: other (see HPI) Past Surgical History: Other (AV fistula in the left upper extremity, hemorrhoidectomy) Social history: other (Resides at SNF) Medications and Allergies Allergies Allergy/AdvReac Type Severity Reaction Status Date / Time haloperidol [From Haldol] AdvReac Unknown Verified 03/13/18 12:10 haloperidol lactate AdvReac Unknown Verified 03/13/18 12:10 [From Haldol] Home Medications Medication Instructions Recorded Confirmed Last Taken Type risperiDONE [RisperDAL] 1 mg PO QAM 03/13/18 12/27/18 Unknown History Sertraline [Zoloft] 100 mg PO QDAY 08/26/18 12/27/18 Unknown History risperiDONE [RisperDAL] 0.5 mg PO HS 08/26/18 12/27/18 Unknown History Polyethylene Glycol 3350 [Miralax 17 gm PO QDAY #30 packet 11/05/18 12/27/18 Unknown Rx 3350] Aspirin EC 81 mg PO DAILY #30 11/19/18 12/27/18 Unknown Rx Docusate Sodium [Colace CAP] 100 mg PO BID #60 11/19/18 12/27/18 Unknown Rx Folic Acid [Folvite] 1 mg PO DAILY #30 tab 11/19/18 12/27/18 Unknown Rx Famotidine [Pepcid] 20 mg PO DAILY tablet 12/08/18 12/27/18 Unknown Rx Gabapentin [Neurontin] 100 mg PO QHS capsule 12/08/18 12/27/18 Unknown Rx Metoprolol [Lopressor TAB] 50 mg PO BID 30 Days tablet 12/08/18 12/27/18 Unknown Rx Sevelamer Carbonate [Renvela] 800 mg PO TIDWM tablet 12/08/18 12/27/18 Unknown Rx hydrALAZINE [Apresoline TAB] 100 mg PO Q8HR #120 tablet 12/08/18 12/27/18 Unknown Rx Acetaminophen [Acetaminophen TAB] 650 mg PO Q12H PRN 12/15/18 12/27/18 Unknown History Amino Acids/Protein Hydrolys 30 ml PO BID 12/15/18 12/27/18 Unknown History [Pro-Stat Sugar Free Liquid] Glucagon,Human Recombinant 1 mg IJ Q15MIN PRN 12/15/18 12/27/18 Unknown History [Glucagon Emergency Kit] Insulin Aspart [NovoLOG 100 See Protocol SQ QWEEK 12/15/18 12/27/18 Unknown History UNITS/ML VIAL] Epoetin Solitario 10,000 Unit [Procrit] 10,000 unit IV UMA PRN vial 12/18/18 12/27/18 Unknown Rx Lispro Insulin [HumaLOG] 0 unit SUB-Q ACHS units 12/18/18 12/27/18 Unknown Rx risperiDONE [RisperDAL] 0.5 mg PO QHS tablet 12/18/18 12/27/18 Unknown Rx Active Meds: Active Medications Acetaminophen (Tylenol) 650 mg PO Q4H PRN PRN Reason: Pain MILD(1-3)/Fever >100.5/HILL Last Admin: 12/29/18 12:29 Dose: 650 mg Documented by: Lipase/Protease/Amylase ([place] 10,500 Unit) 1 each FEEDTUBE PRN PRN PRN Reason: For Clogged Feeding Tube Aspirin (Halfprin Ec) 81 mg PO DAILY [facility] Last Admin: 12/31/18 09:09 Dose: 81 mg Documented by: Docusate Sodium (Colace) 100 mg PO BID [facility] Last Admin: 12/31/18 22:32 Dose: 100 mg Documented by: Famotidine (Pepcid) 20 mg PO DAILY [facility] Last Admin: 12/31/18 09:09 Dose: 20 mg Documented by: Folic Acid (Folvite) 1 mg PO DAILY [facility] Last Admin: 12/31/18 09:09 Dose: 1 mg Documented by: Gabapentin (Neurontin) 100 mg PO QHS [facility] Last Admin: 12/31/18 22:33 Dose: 100 mg Documented by: Glucagon (Glucagen) 1 mg IV Q15M PRN PRN Reason: Hypoglycemia (BG < 70) Heparin Sodium (Porcine) (Heparin) 5,000 unit SUB-Q Q12HR [facility] Last Admin: 12/31/18 22:33 Dose: 5,000 unit Documented by: Hydralazine HCl (Apresoline) 100 mg PO Q8HR [facility] Last Admin: 01/01/19 05:36 Dose: 100 mg Documented by: Hydromorphone HCl (Dilaudid) 0.25 mg IV Q3H PRN PRN Reason: Pain, Moderate (4-6) Last Admin: 12/29/18 05:38 Dose: 0.25 mg Documented by: Piperacillin Sod/Tazobactam Sod (Zosyn/Ns 2.25 Gm/50ml) 2.25 gm in 50 mls @ 100 mls/hr IV Q8HR [facility]; Protocol Last Admin: 01/01/19 08:00 Dose: Not Given Documented by: Metoprolol Tartrate (Lopressor) 5 mg IV Q5MIN PRN PRN Reason: increased heart rate Last Admin: 12/29/18 05:41 Dose: 5 mg Documented by: Metoprolol Tartrate (Lopressor) 100 mg PO BID [facility] Last Admin: 12/31/18 22:33 Dose: 100 mg Documented by: Ondansetron HCl (Zofran) 4 mg IV Q8H PRN PRN Reason: Nausea And Vomiting Polyethylene Glycol (Miralax 3350) 17 gm PO QDAY [facility] Last Admin: 12/31/18 09:09 Dose: 17 gm Documented by: Risperidone (Risperdal) 0.5 mg PO QHS [facility] Last Admin: 12/31/18 22:30 Dose: 0.5 mg Documented by: Risperidone (Risperdal) 1 mg PO QAM [facility] Last Admin: 12/31/18 09:09 Dose: 1 mg Documented by: Sertraline HCl (Zoloft) 100 mg PO QDAY [facility] Last Admin: 12/31/18 09:09 Dose: 100 mg Documented by: Simple Syrup (Simple Syrup) 15 ml FEEDTUBE PRN PRN PRN Reason: Hypoglycemia Simple Syrup (Simple Syrup) 30 ml FEEDTUBE PRN PRN PRN Reason: Hypoglycemia Sodium Bicarbonate (Sodium Bicarbonate) 325 mg FEEDTUBE PRN PRN PRN Reason: For Clogged Feeding Tube Sodium Chloride (Sodium Chloride Flush Syringe 10 Ml) 10 ml IV BID [facility] Last Admin: 12/31/18 22:36 Dose: Not Given Documented by: Sodium Chloride (Sodium Chloride Flush Syringe 10 Ml) 10 ml IV PRN PRN PRN Reason: LINE FLUSH medications reviewed/updated as required Review of Systems - Review of Systems ROS unobtainable: due to mental status Exam - Constitutional Vital Signs: Temp Pulse Resp BP Pulse Ox 99.0 F 106 H 16 118/71 100 01/01/19 10:00 01/01/19 11:15 01/01/19 10:00 01/01/19 11:15 01/01/19 07:53 General appearance: no acute distress - Respiratory Respiratory: bilateral: diminished - Cardiovascular Rhythm: other (irregular) - Gastrointestinal General gastrointestinal: Present: soft, non-distended, normal bowel sounds - Labs CBC & Chem 7: 12/27/18 07:04 12/27/18 07:04 Lab Results: Laboratory Results - last 24 hr 12/31/18 12/31/18 12/31/18 12:29 16:31 20:49 POC Glucose 166 H 128 H 111 H 01/01/19 08:19 POC Glucose 101 Assessment and Plan 1.PEG placement -Patient with malnutrition/failure to thrive with inability to meet nutritional needs via PO with recommendations by speech for a alternative method of nutrition -called and discussed with patient's family/NOK (nasim Mims [phone]) regarding PEG placement to include nature of the procedure, details of the technique, benefits, purpose, and risks including perforation, b leeding, infection, and independent risks of anesthesia. Family voiced understanding and is agreeable to proceed with procedure -will schedule for EGD/PEG in am -okay to continue diet today then NPO after MN -INR in am -continue supportive care -will follow <CATHY MATIAS R - Last Filed: 01/02/19 12:39> Medications and Allergies Active Meds: Active Medications Acetaminophen (Tylenol) 650 mg PO Q4H PRN PRN Reason: Pain MILD(1-3)/Fever >100.5/HILL Last Admin: 01/01/19 21:26 Dose: 650 mg Documented by: Lipase/Protease/Amylase (Pancreaze Dr 10,500 Unit) 1 each FEEDTUBE PRN PRN PRN Reason: For Clogged Feeding Tube Aspirin (Halfprin Ec) 81 mg PO DAILY [facility] Last Admin: 01/01/19 14:48 Dose: 81 mg Documented by: Docusate Sodium (Colace) 100 mg PO BID [facility] Last Admin: 01/01/19 21:25 Dose: 100 mg Documented by: Famotidine (Pepcid) 20 mg PO DAILY [facility] Last Admin: 01/01/19 14:48 Dose: 20 mg Documented by: Folic Acid (Folvite) 1 mg PO DAILY [facility] Last Admin: 01/01/19 14:48 Dose: 1 mg Documented by: Gabapentin (Neurontin) 100 mg PO QHS [facility] Last Admin: 01/01/19 21:26 Dose: 100 mg Documented by: Heparin Sodium (Porcine) (Heparin) 5,000 unit SUB-Q Q12HR [facility] Last Admin: 01/01/19 21:25 Dose: 5,000 unit Documented by: Hydralazine HCl (Apresoline) 100 mg PO Q8HR [facility] Last Admin: 01/02/19 05:45 Dose: Not Given Documented by: Hydromorphone HCl (Dilaudid) 0.25 mg IV Q3H PRN PRN Reason: Pain, Moderate (4-6) Last Admin: 12/29/18 05:38 Dose: 0.25 mg Documented by: Piperacillin Sod/Tazobactam Sod (Zosyn/Ns 2.25 Gm/50ml) 2.25 gm in 50 mls @ 100 mls/hr IV Q8HR [facility]; Protocol Last Admin: 01/02/19 05:42 Dose: 100 mls/hr Documented by: Sodium Chloride (Nacl 0.9% 1000 Ml) 1,000 mls @ 50 mls/hr IV DIRECT [facility] Last Admin: 01/02/19 12:20 Dose: 50 mls/hr Documented by: Cefazolin Sodium (Ancef/Sterile Water 2 Gm/20 Ml) 2 gm in 20 mls @ 80 mls/hr IV PREOP NR; Protocol Stop: 01/02/19 23:59 Metoprolol Tartrate (Lopressor) 5 mg IV Q5MIN PRN PRN Reason: increased heart rate Last Admin: 12/29/18 05:41 Dose: 5 mg Documented by: Metoprolol Tartrate (Lopressor) 100 mg PO BID [facility] Last Admin: 01/01/19 21:25 Dose: 100 mg Documented by: Ondansetron HCl (Zofran) 4 mg IV Q8H PRN PRN Reason: Nausea And Vomiting Polyethylene Glycol (Miralax 3350) 17 gm PO QDAY [facility] Last Admin: 01/01/19 14:48 Dose: 17 gm Documented by: Risperidone (Risperdal) 0.5 mg PO QHS [facility] Last Admin: 01/01/19 21:25 Dose: 0.5 mg Documented by: Risperidone (Risperdal) 1 mg PO QAM [facility] Last Admin: 01/01/19 14:48 Dose: 1 mg Documented by: Sertraline HCl (Zoloft) 100 mg PO QDAY [facility] Last Admin: 01/01/19 14:48 Dose: 100 mg Documented by: Simple Syrup (Simple Syrup) 15 ml FEEDTUBE PRN PRN PRN Reason: Hypoglycemia Simple Syrup (Simple Syrup) 30 ml FEEDTUBE PRN PRN PRN Reason: Hypoglycemia Sodium Bicarbonate (Sodium Bicarbonate) 325 mg FEEDTUBE PRN PRN PRN Reason: For Clogged Feeding Tube Sodium Chloride (Sodium Chloride Flush Syringe 10 Ml) 10 ml IV BID [facility] Last Admin: 01/01/19 22:52 Dose: Not Given Documented by: Sodium Chloride (Sodium Chloride Flush Syringe 10 Ml) 10 ml IV PRN PRN PRN Reason: LINE FLUSH Sodium Hypochlorite (Dakin's Half Strength) 1 applic TP Q12H PRN PRN Reason: Wound Care Exam - Constitutional Vital Signs: Temp Pulse Resp BP Pulse Ox 97.4 F L 99 H 14 138/71 100 01/02/19 12:02 01/02/19 12:02 01/02/19 12:02 01/02/19 12:02 01/02/19 12:02 - Labs CBC & Chem 7: 01/01/19 17:26 01/01/19 17:32 Lab Results: Laboratory Results - last 24 hr 01/01/19 01/01/19 01/01/19 17:26 17:32 17:32 WBC 15.9 H RBC 3.15 L Hgb 7.9 L Hct 25.7 L MCV 82 L MCH 25 L MCHC 31 L RDW 20.1 H Plt Count 120 L Add Manual Diff Complete Total Counted 100 Seg Neutrophils % [employer] Seg Neuts % (Manual) 92.0 H Band Neutrophils % 0 Lymphocytes % (Manual) 3.0 L Reactive Lymphs % (Man) 0 Monocytes % (Manual) 5.0 Eosinophils % (Manual) 0 Basophils % (Manual) 0 Metamyelocytes % 0 Myelocytes % 0 Promyelocytes % 0 Blast Cells % 0 Nucleated RBC % Not Reportable Seg Neutrophils # Man 14.6 H Band Neutrophils # 0.0 Lymphocytes # (Manual) 0.5 L Abs React Lymphs (Man) 0.0 Monocytes # (Manual) 0.8 Eosinophils # (Manual) 0.0 Basophils # (Manual) 0.0 Metamyelocytes # 0.0 Myelocytes # 0.0 Promyelocytes # 0.0 Blast Cells # 0.0 WBC Morphology Not Reportable Hypersegmented Neuts Not Reportable Hyposegmented Neuts Not Reportable Hypogranular Neuts Not Reportable Smudge Cells Not Reportable Toxic Granulation Not Reportable Toxic Vacuolation Not Reportable Dohle Bodies Not Reportable Pelger-Huet Anomaly Not Reportable Tramaine Rods Not Reportable Platelet Estimate Not Reportable Clumped Platelets Not Reportable Plt Clumps, EDTA Not Reportable Large Platelets Not Reportable Giant Platelets Not Reportable Platelet Satelliting Not Reportable Plt Morphology Comment Not Reportable RBC Morphology Not Reportable Dimorphic RBCs Not Reportable Polychromasia Not Reportable Hypochromasia 1+ Poikilocytosis Not Reportable Anisocytosis 1+ Microcytosis Not Reportable Macrocytosis Not Reportable Spherocytes Not Reportable Pappenheimer Bodies Not Reportable Sickle Cells Not Reportable Target Cells Not Reportable Tear Drop Cells Not Reportable Ovalocytes Not Reportable Helmet Cells Not Reportable Zhou-[place] Bodies Not Reportable Era Rings Not Reportable Hebert Cells Not Reportable Bite Cells Not Reportable Crenated Cell Not Reportable Elliptocytes Not Reportable Acanthocytes (Spur) Not Reportable Rouleaux Not Reportable Hemoglobin C Crystals Not Reportable Schistocytes Not Reportable Malaria parasites Not Reportable Jose Juan Bodies Not Reportable Hem Pathologist Commnt No PT INR Sodium 138 Potassium 3.0 L Chloride 95.5 L Carbon Dioxide 30 Anion Gap 16 BUN 14 Creatinine 2.1 H Estimated GFR 39 BUN/Creatinine Ratio 7 Glucose 169 H POC Glucose Calcium 9.4 Phosphorus 1.40 L Total Bilirubin 0.60 AST 9 ALT < 5 L Alkaline Phosphatase 114 Total Protein 5.9 L Albumin 2.2 L Albumin/Globulin Ratio 0.6 PTH Intact 178.6 H Random Vancomycin 01/01/19 01/02/19 01/02/19 21:22 05:39 05:39 WBC RBC Hgb Hct MCV MCH MCHC RDW Plt Count Add Manual Diff Total Counted Seg Neutrophils % Seg Neuts % (Manual) Band Neutrophils % Lymphocytes % (Manual) Reactive Lymphs % (Man) Monocytes % (Manual) Eosinophils % (Manual) Basophils % (Manual) Metamyelocytes % Myelocytes % Promyelocytes % Blast Cells % Nucleated RBC % Seg Neutrophils # Man Band Neutrophils # Lymphocytes # (Manual) Abs React Lymphs (Man) Monocytes # (Manual) Eosinophils # (Manual) Basophils # (Manual) Metamyelocytes # Myelocytes # Promyelocytes # Blast Cells # WBC Morphology Hypersegmented Neuts Hyposegmented Neuts Hypogranular Neuts Smudge Cells Toxic Granulation Toxic Vacuolation Dohle Bodies Pelger-Huet Anomaly Tramaine Rods Platelet Estimate Clumped Platelets Plt Clumps, EDTA Large Platelets Giant Platelets Platelet Satelliting Plt Morphology Comment RBC Morphology Dimorphic RBCs Polychromasia Hypochromasia Poikilocytosis Anisocytosis Microcytosis Macrocytosis Spherocytes Pappenheimer Bodies Sickle Cells Target Cells Tear Drop Cells Ovalocytes Helmet Cells Zhou-[place] Bodies Era Rings Hebert Cells Bite Cells Crenated Cell Elliptocytes Acanthocytes (Spur) Rouleaux Hemoglobin C Crystals Schistocytes Malaria parasites Jose Juan Bodies Hem Pathologist Commnt PT 18.0 H INR 1.39 H Sodium Potassium Chloride Carbon Dioxide Anion Gap BUN Creatinine Estimated GFR BUN/Creatinine Ratio Glucose POC Glucose 188 H Calcium Phosphorus Total Bilirubin AST ALT Alkaline Phosphatase Total Protein Albumin Albumin/Globulin Ratio PTH Intact Random Vancomycin 9.1 01/02/19 07:27 WBC RBC Hgb Hct MCV MCH MCHC RDW Plt Count Add Manual Diff Total Counted Seg Neutrophils % Seg Neuts % (Manual) Band Neutrophils % Lymphocytes % (Manual) Reactive Lymphs % (Man) Monocytes % (Manual) Eosinophils % (Manual) Basophils % (Manual) Metamyelocytes % Myelocytes % Promyelocytes % Blast Cells % Nucleated RBC % Seg Neutrophils # Man Band Neutrophils # Lymphocytes # (Manual) Abs React Lymphs (Man) Monocytes # (Manual) Eosinophils # (Manual) Basophils # (Manual) Metamyelocytes # Myelocytes # Promyelocytes # Blast Cells # WBC Morphology Hypersegmented Neuts Hyposegmented Neuts Hypogranular Neuts Smudge Cells Toxic Granulation Toxic Vacuolation Dohle Bodies Pelger-Huet Anomaly Tramaine Rods Platelet Estimate Clumped Platelets Plt Clumps, EDTA Large Platelets Giant Platelets Platelet Satelliting Plt Morphology Comment RBC Morphology Dimorphic RBCs Polychromasia Hypochromasia Poikilocytosis Anisocytosis Microcytosis Macrocytosis Spherocytes Pappenheimer Bodies Sickle Cells Target Cells Tear Drop Cells Ovalocytes Helmet Cells Zhou-[place] Bodies Era Rings Hebert Cells Bite Cells Crenated Cell Elliptocytes Acanthocytes (Spur) Rouleaux Hemoglobin C Crystals Schistocytes Malaria parasites Jose Juan Bodies Hem Pathologist Commnt PT INR Sodium Potassium Chloride Carbon Dioxide Anion Gap BUN Creatinine Estimated GFR BUN/Creatinine Ratio Glucose POC Glucose 186 H Calcium Phosphorus Total Bilirubin AST ALT Alkaline Phosphatase Total Protein Albumin Albumin/Globulin Ratio PTH Intact Random Vancomycin Assessment and Plan Pt seen and examined on 01/01. Will proceed.
[2019-01-01] MEDS ORDERED: NACL 0.9 (PRIMING MACHINE ONLY DIALYSIS) MC ONE (14:25)
[2019-01-01] MEDS: MIRALAX 3350 PO SCH (14:48)
[2019-01-01] MEDS: RisperDAL PO SCH ×2 (14:48→21:25)
[2019-01-01] MEDS: PEPCID PO SCH (14:48)
[2019-01-01] MEDS: HALFPRIN EC PO SCH (14:48)
[2019-01-01] MEDS: FOLVITE PO SCH (14:48)
[2019-01-01] MEDS: ZOLOFT PO SCH (14:48)
[2019-01-01] MEDS: SODIUM CHLORIDE FLUSH SYRINGE 10 ML IV SCH ×2 (14:49→22:52)
[2019-01-01] MEDS ORDERED: XYLOCAINE TOPICAL 4% TP ONE (16:00)
--- NOTE | 2019-01-01 16:15 | Procedure Note ---
Date of procedure: 01/01/19 Pre-op diagnosis: infected necrotic sacral wound Post-op diagnosis: same Procedure: open excisional debridement of necrotic and infected sacral wound Findings: Consent obtained for procedure Time out performed. Lidocaine 4% topical applied to wound for several minutes prior to debridement. Patient placed in lateral decubitus position. The area was prepped with betadine. A large amount of necrotic tissue was debrided using foreceps and a 10 blade. The wound bed was pink. There were two abscess cavities at the caudad portion of the wound with a copious amount of purulent drainage which was drained. The cavities were probed bluntly with a gloved finger to break up any loculations. Once all the pus was evacuated, the wound was cleansed. There was still some remaining necrotic tissue at the caudad portion of the wound but the patient was experiencing too much discomfort and so debridement was ended here. Hemostasis was achieved using pressure and surgical. 2 pieces of surgicel were packed into the wound. The wound was then packed with saline moistened dakins and covered with dry 4x4 gauze and foam sacral dressing. The patient tolerated the procedure well. He was placed back into supine position. All sharps were disposed of appropriately. Anesthesia: local Surgeon: ZENY HINES Estimated blood loss: minimal Pathology: none Condition: stable Disposition: no change
[2019-01-01 17:52] LABS: Hematocrit 25.7 % (35.5-45.6); Hemoglobin 7.9 gm/dl (11.8-15.2); Mean Corpuscular HGB Conc 31 % (32-34); Mean Corpuscular Volume 82 fl (84-94); Platelet Count 120 K/mm3 (140-440); Red Blood Count 3.15 M/mm3 (3.65-5.03)
[2019-01-01 17:56] LABS: Red Cell Distribution Width 20.1 % (13.2-15.2)
[2019-01-01 18:37] LABS: BUN/Creatinine Ratio 7; Blood Urea Nitrogen 14 mg/dL (9-20); Calcium 9.4 mg/dL (8.4-10.2)
[2019-01-01 18:38] LABS: Albumin 2.2 g/dL (3.9-5); Hemolysis Index 4
[2019-01-01 18:39] LABS: Alanine Aminotransferase < 5 units/L (7-56)
[2019-01-01 18:48] LABS: Total Cells Counted 100
[2019-01-01 18:49] LABS: Anisocytosis 1+; Basophils % (Manual) 0 % (0.0-1.8); Eosinophils % (Manual) 0 % (0.0-4.3); Hypochromasia 1+
[2019-01-01] MEDS: NEURONTIN PO SCH (21:26)
[2019-01-01] MEDS: TYLENOL PO PRN (21:26)
[2019-01-02] MEDS: ZOSYN/NS 2.25 GM/50ML 2.25 GM/50 ML BAG IV SCH ×3 (05:42→22:58)
[2019-01-02] MEDS: APRESOLINE PO SCH ×4 (05:45→21:27)
[2019-01-02 06:16] LABS: INR 1.39 (0.87-1.13)
--- NOTE | 2019-01-02 08:56 | Progress Note ---
Subjective Principal diagnosis: AMS; AFib Interval history: Patient was seen today for follow-up on multiple renal related issues Events of this hospitalization noted Patient is on dialysis Saturday Dialysis was uneventful yesterday Pending PEG tube placement Vitals labs intake output medications were reviewed Social history: Reviewed Allergies: Reviewed Family history: Reviewed Physical examination HEENT: Oral mucosa moist no pallor or icterus Neck: Supple no JVD Chest: Clear to auscultation anteriorly CVS: Regular rate and rhythm S1 and S2 heard Abdomen: Soft nontender no suprapubic masses no organomegaly appreciable Extremity: Dry skin less than 1+ peripheral edema Chronic upper extremity swelling Musculoskeletal: No joint effusion noted in knees and ankle Neurological: Alert awake Dermatology: No petechial rashes Psychiatry: No evidence of any agitation and aggression noted Assessment and plan; End-stage renal disease: Patient will continue with hemodialysis on Saturday and Saturday, with a central venous catheter He does have some chronic swelling of his upper extremity which is likely due to vascular issues and he may benefit from a vascular Doppler and a vascular surgery evaluation Admitted with altered mental status patient clinically appears to be doing erika r November 2018 ejection fraction is between 35-40% cardiology findings reviewed Chronic history of atrial fibrillation Due to end-stage renal disease and related comorbidities his prognosis appears to be very poor Would like to avoid Renvela altogether due to GI toxicity and this can also cause poor appetite, patient is being followed by gastroenterology service Anemia in end-stage renal disease: Monitor hemoglobin and hematocrit, erythropoietin as needed atrial fibrillation variable response rate, being followed by cardiology sacral decubitus being followed by general surgery for debridement We'll continue to follow and make recommendation from renal standpoint Objective - Vital Signs Vital signs: Vital Signs - 12hr 01/01/19 01/02/19 01/02/19 22:00 00:00 00:06 Temperature 100.5 F H 98.5 F Pulse Rate Respiratory 20 20 Rate Blood Pressure 141/64 Blood Pressure [Right] O2 Sat by Pulse Oximetry 01/02/19 01/02/19 00:11 04:00 Temperature 98.0 F Pulse Rate 94 H Respiratory 17 Rate Blood Pressure Blood Pressure 127/70 [Right] O2 Sat by Pulse 98 100 Oximetry - Lab 01/01/19 17:26 01/01/19 17:32 Most recent lab results Calcium 9.4 mg/dL (8.4-10.2) 01/01/19 17:32 Phosphorus 1.40 mg/dL (2.5-4.5) L 01/01/19 17:32 Medications & Allergies - Medications Allergies/Adverse Reactions: Allergies haloperidol [From Haldol] Adverse Reaction (Verified 03/13/18 12:10) Unknown haloperidol lactate [From Haldol] Adverse Reaction (Verified 03/13/18 12:10) Unknown Home Medications: Home Medications Medication Instructions Recorded Confirmed Last Taken Type risperiDONE [RisperDAL] 1 mg PO QAM 03/13/18 12/27/18 Unknown History Sertraline [Zoloft] 100 mg PO QDAY 08/26/18 12/27/18 Unknown History risperiDONE [RisperDAL] 0.5 mg PO HS 08/26/18 12/27/18 Unknown History Polyethylene Glycol 3350 [Miralax 17 gm PO QDAY #30 packet 11/05/18 12/27/18 Unknown Rx 3350] Aspirin EC 81 mg PO DAILY #30 11/19/18 12/27/18 Unknown Rx Docusate Sodium [Colace CAP] 100 mg PO BID #60 11/19/18 12/27/18 Unknown Rx Folic Acid [Folvite] 1 mg PO DAILY #30 tab 11/19/18 12/27/18 Unknown Rx Famotidine [Pepcid] 20 mg PO DAILY tablet 12/08/18 12/27/18 Unknown Rx Gabapentin [Neurontin] 100 mg PO QHS capsule 12/08/18 12/27/18 Unknown Rx Metoprolol [Lopressor TAB] 50 mg PO BID 30 Days tablet 12/08/18 12/27/18 Unknown Rx Sevelamer Carbonate [Renvela] 800 mg PO TIDWM tablet 12/08/18 12/27/18 Unknown Rx hydrALAZINE [Apresoline TAB] 100 mg PO Q8HR #120 tablet 12/08/18 12/27/18 Un known Rx Acetaminophen [Acetaminophen TAB] 650 mg PO Q12H PRN 12/15/18 12/27/18 Unknown History Amino Acids/Protein Hydrolys 30 ml PO BID 12/15/18 12/27/18 Unknown History [Pro-Stat Sugar Free Liquid] Glucagon,Human Recombinant 1 mg IJ Q15MIN PRN 12/15/18 12/27/18 Unknown History [Glucagon Emergency Kit] Insulin Aspart [NovoLOG 100 See Protocol SQ QWEEK 12/15/18 12/27/18 Unknown History UNITS/ML VIAL] Epoetin Solitario 10,000 Unit [Procrit] 10,000 unit IV UMA PRN vial 12/18/18 12/27/18 Unknown Rx Lispro Insulin [HumaLOG] 0 unit SUB-Q ACHS units 12/18/18 12/27/18 Unknown Rx risperiDONE [RisperDAL] 0.5 mg PO QHS tablet 12/18/18 12/27/18 Unknown Rx Active Medications: Generic Name Dose Route Start Last Admin Trade Name Freq PRN Reason Stop Dose Admin Acetaminophen 650 mg 12/26/18 21:40 01/01/19 21:26 Tylenol PO 650 mg Q4H PRN Administration Pain MILD(1-3)/Fever >100.5/HILL Lipase/Protease/Amylase 1 each 12/27/18 17:[address] 10,500 Unit FEEDTUBE PRN PRN For Clogged Feeding Tube Aspirin 81 mg 12/27/18 10:00 01/01/19 14:48 Halfprin Ec PO 81 mg DAILY SANCHEZ Administration Docusate Sodium 100 mg 12/26/18 22:00 01/01/19 21:25 Colace PO 100 mg BID SANCHEZ Administration Famotidine 20 mg 12/27/18 10:00 01/01/19 14:48 Pepcid PO 20 mg DAILY SANCHEZ Administration Folic Acid 1 mg 12/27/18 10:00 01/01/19 14:48 Folvite PO 1 mg DAILY SANCHEZ Administration Gabapentin 100 mg 12/26/18 22:00 01/01/19 21:26 Neurontin PO 100 mg QHS SANCHEZ Administration Glucagon 1 mg 12/26/18 21:55 Glucagen IV Q15M PRN Hypoglycemia (BG < 70) Heparin Sodium (Porcine) 5,000 unit 12/26/18 22:00 01/01/19 21:25 Heparin SUB-Q 5,000 unit Q12HR SANCHEZ Administration Hydralazine HCl 100 mg 12/26/18 22:00 01/02/19 05:45 Apresoline PO Not Given Q8HR SANCHEZ Hydromorphone HCl 0.25 mg 12/26/18 21:40 12/29/18 05:38 Dilaudid IV 0.25 mg Q3H PRN Administration Pain, Moderate (4-6) Piperacillin Sod/Tazobactam Sod 2.25 gm in 50 mls @ 100 mls/hr 12/31/18 14:00 01/02/19 05:42 Zosyn/Ns 2.25 Gm/50ml IV 100 mls/hr Q8HR SANCHEZ Administration Protocol Metoprolol Tartrate 5 mg 12/27/18 18:55 12/29/18 05:41 Lopressor IV 5 mg Q5MIN PRN Administration increased heart rate Metoprolol Tartrate 100 mg 12/31/18 22:00 01/01/19 21:25 Lopressor PO 100 mg BID SANCHEZ Administration Ondansetron HCl 4 mg 12/26/18 21:40 Zofran IV Q8H PRN Nausea And Vomiting Polyethylene Glycol 17 gm 12/27/18 10:00 01/01/19 14:48 Miralax 3350 PO 17 gm QDAY SANCHEZ Administration Risperidone 0.5 mg 12/26/18 22:00 01/01/19 21:25 Risperdal PO 0.5 mg QHS SANCHEZ Administration Risperidone 1 mg 12/27/18 10:00 01/01/19 14:48 Risperdal PO 1 mg QAM SANCHEZ Administration Sertraline HCl 100 mg 12/27/18 10:00 01/01/19 14:48 Zoloft PO 100 mg QDAY SANCHEZ Administration Simple Syrup 15 ml 12/27/18 17:37 Simple Syrup FEEDTUBE PRN PRN Hypoglycemia Simple Syrup 30 ml 12/27/18 17:37 Simple Syrup FEEDTUBE PRN PRN Hypoglycemia Sodium Bicarbonate 325 mg 12/27/18 17:37 Sodium Bicarbonate FEEDTUBE PRN PRN For Clogged Feeding Tube Sodium Chloride 10 ml 12/26/18 22:00 01/01/19 22:52 Sodium Chloride Flush Syringe 10 Ml IV Not Given BID SANCHEZ Sodium Chloride 10 ml 12/26/18 21:40 Sodium Chloride Flush Syringe 10 Ml IV PRN PRN LINE FLUSH Sodium Hypochlorite 1 applic 01/01/19 15:31 Dakin's Half Strength TP Q12H PRN Wound Care
[2019-01-02] MEDS: SODIUM CHLORIDE FLUSH SYRINGE 10 ML IV SCH ×3 (10:00→22:59)
[2019-01-02] MEDS: HALFPRIN EC PO SCH (10:00)
[2019-01-02] MEDS: RisperDAL PO SCH ×3 (10:00→22:59)
[2019-01-02] MEDS: MIRALAX 3350 PO SCH (10:00)
[2019-01-02] MEDS: PEPCID PO SCH (10:00)
[2019-01-02] MEDS: FOLVITE PO SCH (10:00)
[2019-01-02] MEDS: HEPARIN SUB-Q SCH ×3 (10:00→21:28)
[2019-01-02] MEDS: COLACE PO SCH ×3 (10:00→21:28)
[2019-01-02] MEDS: LOPRESSOR PO SCH ×3 (10:00→21:31)
[2019-01-02] MEDS: ZOLOFT PO SCH (10:00)
[2019-01-02] MEDS ORDERED: NACL 0.9% 1000 ML 1,000 ML IV SCH (11:00)
[2019-01-02] MEDS ORDERED: ANCEF/STERILE WATER 2 GM/20 ML 2 GM/20 ML SYRINGE IV NR (11:00)
--- NOTE | 2019-01-02 11:23 | Progress Note ---
Assessment and Plan Currently stable cardiac status. Cont present cardiac regimen. Pt appears to be a poor candidate for long-term OAC in setting of mental status, anemia, thrombocytopenia, and multiple co-morbidities. Nothing further to add from cardiac perspective at this time. Will sign off. Recommend pt follow up in our office with Dr. Martin within 1-2 weeks of hospital discharge ([phone]). The patient has been seen in conjunction with Dr. Martin who agrees with the assessment and plan of care. - Patient Problems (1) Atrial fibrillation with RVR Current Visit: Yes Status: Acute (2) History of loop recorder Current Visit: Yes Status: Chronic (3) Acute HFrEF (heart failure with reduced ejection fraction) Current Visit: Yes Status: Acute (4) Cardiomyopathy Current Visit: Yes Status: Chronic (5) Altered mental status Current Visit: Yes Status: Acute Qualifiers: Altered mental status type: unspecified Qualified Code(s): R41.82 - Altered mental status, unspecified (6) ESRD (end stage renal disease) on dialysis Current Visit: Yes Status: Chronic (7) Diabetes Current Visit: Yes Status: Chronic (8) History of CVA (cerebrovascular accident) Current Visit: Yes Status: Chronic (9) Legally blind Current Visit: Yes Status: Chronic (10) Anemia Current Visit: Yes Status: Chronic Qualifiers: Anemia type: unspecified type Qualified Code(s): D64.9 - Anemia, unspecified (11) Thrombocytopenia Current Visit: Yes Status: Chronic (12) NSTEMI (non-ST elevated myocardial infarction) Current Visit: Yes Status: Acute (13) Lactic acidosis Current Visit: Yes Status: Acute Subjective Date of service: 01/02/19 Principal diagnosis: AMS; AFib Interval history: pt resting in bed, moaning, nonverbal. in AFib with CVR. no family at bedside. Objective Last Vital Signs Temp 98.0 F 01/02/19 04:00 Pulse 98 H 01/02/19 07:51 Resp 17 01/02/19 04:00 BP 117/59 01/02/19 07:51 Pulse Ox 100 01/02/19 07:51 - Physical Examination General: Other (moaning, nonverbal) Cardiac: Positive: irregularly irregular, S1/S2 Neuro: Positive: Other (nonverbal) Skin: Negative: Rash Extremities: Absent: edema - Labs and Meds Cardiac Enzymes 01/01/19 Range/Units 17:32 AST 9 (5-40) units/L Coagulation 01/02/19 Range/Units 05:39 PT 18.0 H (12.2-14.9) Sec. INR 1.39 H (0.87-1.13) CBC 01/01/19 Range/Units 17:26 WBC 15.9 H (4.5-11.0) K/mm3 RBC 3.15 L (3.65-5.03) M/mm3 Hgb 7.9 L (11.8-15.2) gm/dl Hct 25.7 L (35.5-45.6) % Plt Count 120 L (140-440) K/mm3 Comprehensive Metabolic Panel 01/01/19 Range/Units 17:32 Sodium 138 (137-145) mmol/L Potassium 3.0 L (3.6-5.0) mmol/L Chloride 95.5 L (98-107) mmol/L Carbon Dioxide 30 (22-30) mmol/L BUN 14 (9-20) mg/dL Creatinine 2.1 H (0.8-1.5) mg/dL Glucose 169 H (75-100) mg/dL Calcium 9.4 (8.4-10.2) mg/dL AST 9 (5-40) units/L ALT < 5 L (7-56) units/L Alkaline Phosphatase 114 (35-129) units/L Total Protein 5.9 L (6.3-8.2) g/dL Albumin 2.2 L (3.9-5) g/dL - Imaging and Cardiology EKG: report reviewed, image reviewed Echo: report reviewed (Echo done 12/16/2018 showed EF 35-40%, mild LVH, RV systolic function mod reduced, RA mildly dilated, pulm HTN with RVSP 53mmHg, large pleural effusion, markedly increased RA pressure. )
--- NOTE | 2019-01-02 11:49 | Progress Note ---
Assessment and Plan Assessment and plan: 63-year-old -[place] male with multiple medical problems sent from [facility] for altered sensorium and decreased responsiveness. Patient end-stage renal disease hypertension insulin-dependent diabetes COPD and CHF. No fever or chills. Decreased responsive and not eating at all for the last 36 hours. No shortness of breath. No chest pain. Patient has failure to thrive, altered mentation and weight loss of 20 pounds since 12/08/2018. fever; w/o in progress sacral decub, POA, stage 2-3 worsening, cont wound care Acute encephalopathy Secondary to uremia, and FTT, improving Patient is on HD Nephrology consult appreciated Acute exacerbation of CHF (congestive heart failure), and rapid Afib cont hd, optimize meds per cardiology, cardiology signed off 01/02 ESRD needing dialysis Continue hemo dialysis hypokalemia- replete Insulin dependent diabetes mellitus - A1c is 4.2 insulin was dc FTT, severe malnutrition -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, cont oral diet, licensed vocational nurse input appreciated sp peg placement 01/02 Hypertension Continue antihypertensives Peripheral neuropathy Continue gabapentin Anemia Continue epoetin Elevated lactic acid level Sepsis unlikely, resolved Elevated troponin Secondary to end-stage renal disease, chf and afib, cardiology input appreciated DVT prophylaxis On heparin and GI prophylaxis History Interval history: continues to have weakness opens eyes and is verbal , now having fevers, no vomiting, no seizures Hospitalist Physical - Physical exam Narrative exam: appears chronically ill Vital signs as documented. Head exam is unremarkable., opens eyes, says Fede, does not seem to understand his medical condition No scleral icterus . Neck is without jugular venous distension, thyromegaly, or carotid bruits. Lungs are clear to auscultation. Cardiac exam reveals regular rate and Rhythm. First and second heart sounds normal. No murmurs, rubs or gallops. Abdominal exam reveals normal bowel sounds, no masses, no organomegaly and no aortic enlargement. Extremities are nonedematous and both femoral and pedal pulses are normal. TOURIST ESCORT: Lethargic now, only says Fede, unable to have complex conversation - Constitutional Vitals: Temp Pulse Resp BP Pulse Ox 98.0 F 98 H 17 117/59 100 01/02/19 04:00 01/02/19 07:51 01/02/19 04:00 01/02/19 07:51 01/02/19 07:51 General appearance: Present: no acute distress, cachectic, disheveled Results - Labs CBC & Chem 7: 01/07/19 00:45 01/07/19 11:16 Labs: Laboratory Last Values WBC 15.9 K/mm3 (4.5-11.0) H 01/01/19 17:26 RBC 3.15 M/mm3 (3.65-5.03) L 01/01/19 17:26 Hgb 7.9 gm/dl (11.8-15.2) L 01/01/19 17:26 Hct 25.7 % (35.5-45.6) L 01/01/19 17:26 MCV 82 fl (84-94) L 01/01/19 17:26 MCH 25 pg (28-32) L 01/01/19 17:26 MCHC 31 % (32-34) L 01/01/19 17:26 RDW 20.1 % (13.2-15.2) H 01/01/19 17:26 Plt Count 120 K/mm3 (140-440) L 01/01/19 17:26 Lymph % (Auto) Locator 12/27/18 07:04 [place] % (Auto) Locator 12/27/18 07:04 Eos % (Auto) Locator 12/27/18 07:04 Baso % (Auto) Locator 12/27/18 07:04 Lymph # Locator 12/27/18 07:04 [place] # Locator 12/27/18 07:04 Eos # Locator 12/27/18 07:04 Baso # Locator 12/27/18 07:04 Add Manual Diff Complete 01/01/19 17:26 Total Counted 100 01/01/19 17:26 Seg Neutrophils % Locator 01/01/19 17:26 Seg Neuts % (Manual) 92.0 % (40.0-70.0) H 01/01/19 17:26 0 % 01/01/19 17:26 3.0 % (13.4-35.0) L 01/01/19 17:26 Reactive Lymphs % (Man) 0 % 01/01/19 17:26 5.0 % (0.0-7.3) 01/01/19 17:26 0 % (0.0-4.3) 01/01/19 17:26 0 % (0.0-1.8) 01/01/19 17:26 0 % 01/01/19 17:26 0 % 01/01/19 17:26 0 % 01/01/19 17:26 0 % 01/01/19 17:26 Nucleated RBC % Not Reportable 01/01/19 17:26 Seg Neutrophils # Locator 12/27/18 07:04 Seg Neutrophils # Man 14.6 K/mm3 (1.8-7.7) H 01/01/19 17:26 Band Neutrophils # 0.0 K/mm3 01/01/19 17:26 0.5 K/mm3 (1.2-5.4) L 01/01/19 17:26 Abs React Lymphs (Man) 0.0 K/mm3 01/01/19 17:26 0.8 K/mm3 (0.0-0.8) 01/01/19 17:26 0.0 K/mm3 (0.0-0.4) 01/01/19 17:26 0.0 K/mm3 (0.0-0.1) 01/01/19 17:26 0.0 K/mm3 01/01/19 17:26 0.0 K/mm3 01/01/19 17:26 0.0 K/mm3 01/01/19 17:26 Blast Cells # 0.0 K/mm3 01/01/19 17:26 WBC Morphology Not Reportable 01/01/19 17:26 Hypersegmented Neuts Not Reportable 01/01/19 17:26 Hyposegmented Neuts Not Reportable 01/01/19 17:26 Hypogranular Neuts Not Reportable 01/01/19 17:26 Not Reportable 01/01/19 17:26 Not Reportable 01/01/19 17:26 Not Reportable 01/01/19 17:26 Not Reportable 01/01/19 17:26 Not Reportable 01/01/19 17:26 Not Reportable 01/01/19 17:26 Not Reportable 01/01/19 17:26 Not Reportable 01/01/19 17:26 Plt Clumps, EDTA Not Reportable 01/01/19 17:26 Not Reportable 01/01/19 17:26 Not Reportable 01/01/19 17:26 Not Reportable 06/13/19 17:26 Plt Morphology Comment Not Reportable 01/01/19 17:26 RBC Morphology Not Reportable 01/01/19 17:26 Dimorphic RBCs Not Reportable 01/01/19 17:26 Not Reportable 01/01/19 17:26 1+ 01/01/19 17:26 Not Reportable 01/01/19 17:26 1+ 01/01/19 17:26 Not Reportable 01/01/19 17:26 Not Reportable 01/01/19 17:26 Not Reportable 01/01/19 17:26 Not Reportable 01/01/19 17:26 Not Reportable 01/01/19 17:26 Not Reportable 01/01/19 17:26 Not Reportable 01/01/19 17:26 Not Reportable 01/01/19 17:26 Not Reportable 01/01/19 17:26 Not Reportable 01/01/19 17:26 Not Reportable 01/01/19 17:26 Not Reportable 01/01/19 17:26 Not Reportable 01/01/19 17:26 Not Reportable 01/01/19 17:26 Not Reportable 01/01/19 17:26 Acanthocytes (Spur) Not Reportable 01/01/19 17:26 Rouleaux Not Reportable 01/01/19 17:26 Not Reportable 01/01/19 17:26 Not Reportable 01/01/19 17:26 Not Reportable 01/01/19 17:26 Not Reportable 01/01/19 17:26 Hem Pathologist Commnt No 01/01/19 17:26 PT 18.0 Sec. (12.2-14.9) H 01/02/19 05:39 INR 1.39 (0.87-1.13) H 01/02/19 05:39 Sodium 138 mmol/L (137-145) 01/01/19 17:32 Potassium 3.0 mmol/L (3.6-5.0) L 01/01/19 17:32 Chloride 95.5 mmol/L (98-107) L 01/01/19 17:32 Carbon Dioxide 30 mmol/L (22-30) 01/01/19 17:32 16 mmol/L 01/01/19 17:32 BUN 14 mg/dL (9-20) 01/01/19 17:32 2.1 mg/dL (0.8-1.5) H 01/01/19 17:32 Estimated GFR 39 ml/min 01/01/19 17:32 7 % 01/01/19 17:32 Glucose 169 mg/dL (75-100) H 01/01/19 17:32 POC Glucose 186 (70-105) H 01/02/19 07:27 < 4.2 % (4-6) 12/26/18 17:12 Lactic Acid 1.10 mmol/L (0.7-2.0) 12/27/18 07:04 Calcium 9.4 mg/dL (8.4-10.2) 01/01/19 17:32 Phosphorus 1.40 mg/dL (2.5-4.5) L 01/01/19 17:32 0.60 mg/dL (0.1-1.2) 01/01/19 17:32 AST 9 units/L (5-40) 01/01/19 17:32 ALT < 5 units/L (7-56) L 01/01/19 17:32 114 units/L (35-129) 01/01/19 17:32 29 units/L (55-170) L 12/26/18 17:12 0.158 ng/mL (0.00-0.029) H* 12/26/18 17:12 5.9 g/dL (6.3-8.2) L 01/01/19 17:32 2.2 g/dL (3.9-5) L 01/01/19 17:32 0.6 % 01/01/19 17:32 Triglycerides 75 mg/dL (2-149) 12/26/18 17:12 Cholesterol 109 mg/dL (50-199) 12/26/18 17:12 43 mg/dL (50-130) L 12/26/18 17:12 41 mg/dL (40-59) 12/26/18 17:12 2.65 % 12/26/18 17:12 PTH Intact 178.6 pg/mL (15-65) H 01/01/19 17:32 Random Vancomycin 9.1 ug/mL (0-40.0) 01/02/19 05:39 Active Medications - Current Medications Current Medications: Generic Name Dose Route Start Last Admin Trade Name Freq PRN Reason Stop Dose Admin Acetaminophen 650 mg 06/07/19 21:40 01/01/19 21:26 Tylenol PO 650 mg Q4H PRN Administration Pain MILD(1-3)/Fever >100.5/HILL Lipase/Protease/Amylase 1 each 12/27/18 17:37 Pancrejewel Barrientos 10,500 Unit FEEDTUBE PRN PRN For Clogged Feeding Tube Aspirin 81 mg 12/27/18 10:00 01/01/19 14:48 Halfprin Ec PO 81 mg DAILY SANCHEZ Administration Docusate Sodium 100 mg 12/26/18 22:00 01/01/19 21:25 Colace PO 100 mg BID SANCHEZ Administration Famotidine 20 mg 12/27/18 10:00 01/01/19 14:48 Pepcid PO 20 mg DAILY SANCHEZ Administration Folic Acid 1 mg 12/27/18 10:00 01/01/19 14:48 Folvite PO 1 mg DAILY SANCHEZ Administration Gabapentin 100 mg 12/26/18 22:00 01/01/19 21:26 Neurontin PO 100 mg QHS SANCHEZ Administration Heparin Sodium (Porcine) 5,000 unit 12/26/18 22:00 01/01/19 21:25 Heparin SUB-Q 5,000 unit Q12HR SANCHEZ Administration Hydralazine HCl 100 mg 12/26/18 22:00 01/02/19 05:45 Apresoline PO Not Given Q8HR SANCHEZ Hydromorphone HCl 0.25 mg 12/26/18 21:40 12/29/18 05:38 Dilaudid IV 0.25 mg Q3H PRN Administration Pain, Moderate (4-6) Piperacillin Sod/Tazobactam Sod 2.25 gm in 50 mls @ 100 mls/hr 12/31/18 14:00 01/02/19 05:42 Zosyn/Ns 2.25 Gm/50ml IV 100 mls/hr Q8HR SANCHEZ Administration Protocol Sodium Chloride 1,000 mls @ 50 mls/hr 01/02/19 11:00 Nacl 0.9% 1000 Ml IV DIRECT SANCHEZ Cefazolin Sodium 2 gm in 20 mls @ 80 mls/hr 01/02/19 11:00 Ancef/Sterile Water 2 Gm/20 Ml IV 01/02/19 23:59 PREOP NR Protocol Metoprolol Tartrate 5 mg 12/27/18 18:55 12/29/18 05:41 Lopressor IV 5 mg Q5MIN PRN Administration increased heart rate Metoprolol Tartrate 100 mg 12/31/18 22:00 01/01/19 21:25 Lopressor PO 100 mg BID SANCHEZ Administration Ondansetron HCl 4 mg 12/26/18 21:40 Zofran IV Q8H PRN Nausea And Vomiting Polyethylene Glycol 17 gm 12/27/18 10:00 01/01/19 14:48 Miralax 3350 PO 17 gm QDAY SANCHEZ Administration Risperidone 0.5 mg 12/26/18 22:00 01/01/19 21:25 Risperdal PO 0.5 mg QHS SANCHEZ Administration Risperidone 1 mg 12/27/18 10:00 01/01/19 14:48 Risperdal PO 1 mg QAM SANCHEZ Administration Sertraline HCl 100 mg 12/27/18 10:00 01/01/19 14:48 Zoloft PO 100 mg QDAY SANCHEZ Administration Simple Syrup 15 ml 12/27/18 17:37 Simple Syrup FEEDTUBE PRN PRN Hypoglycemia Simple Syrup 30 ml 12/27/18 17:37 Simple Syrup FEEDTUBE PRN PRN Hypoglycemia Sodium Bicarbonate 325 mg 12/27/18 17:37 Sodium Bicarbonate FEEDTUBE PRN PRN For Clogged Feeding Tube Sodium Chloride 10 ml 12/26/18 22:00 01/01/19 22:52 Sodium Chloride Flush Syringe 10 Ml IV Not Given BID SANCHEZ Sodium Chloride 10 ml 12/26/18 21:40 Sodium Chloride Flush Syringe 10 Ml IV PRN PRN LINE FLUSH Sodium Hypochlorite 1 applic 01/01/19 15:31 Dakin's Half Strength TP Q12H PRN Wound Care Nutrition/Malnutrition Assess - Dietary Evaluation Nutrition/Malnutrition Findings: Nutrition Notes Start: 12/27/18 17:15 Freq: Status: Active Protocol: Document 01/02/19 09:25 LP (Rec: 01/02/19 09:32 LP [id number]) Nutrition Notes Initial or Follow up Reassessment Current Diagnosis CKD (stage V CKD),Diabetes, Hypertension Other Pertinent Diagnosis Sacral wound, FTT, acute encephalopathy Current Diet NPO Labs/Tests K 3 Phos 1.4 Pertinent Medications Reviewed Height 5 ft 7 in Weight 80.2 kg [place] Body Weight (kg) 67.27 BMI 27.6 Subjective/Other Information Pt with visible edema. Pt currently NPO. Note large BM this AM. Pt had debridment yesterday. #2 Nutrition Diagnosis Increased nutrient needs ( specify in comment below) Comments: Protein Etiology wound healing As Evidenced by Signs and Symptoms Pt with sacral wound #1 Nutrition Diagnosis Inadequate oral intake Diagnosis Progress(for reassessment Continues documentation) Is patient on ventilator? No Is Patient Ambulatory and/or Out of Bed No REE-([place]-confined to bed) [phone] Kcal/Kg value to use for calculation 17 Approximate Energy Requirements Using 1363 kcal/Kg Calculation Used for Recommendations Kcal/kg Additional Notes Protein Needs: 95-119g (1.2-1 .5g/kg 79kg adjBW) Fluid Needs: 1 ml/kcal Nutrition Intervention Change Diet Order: Advance diet as tolerated Goal #1 Meet at least 80% of kcal and protein needs Anticipated Discharge Needs: Unable to determine at this time Follow-Up By: 01/05/19 Additional Comments Follow for intakes
[2019-01-02] MEDS ORDERED: ANCEF/STERILE WATER 2 GM/20 ML 2 GM/20 ML SYRINGE IV ONE (12:25)
--- NOTE | 2019-01-02 12:54 | Anesthesia Day of Surgery ---
Anesthesia Day of Surgery - Day of Surgery Patient Examined: Yes Patient H&P Reviewed: Yes Patient is NPO: Yes Beta Blockers: No
--- NOTE | 2019-01-02 12:55 | Anesthesia Consultation ---
Anesthesia Consult and Med Hx Date of service: 01/02/19 - Airway Anesthetic Teeth Evaluation: Edentulous ROM Head & Neck: Adequate Mental/Hyoid Distance: Adequate Mallampati Class: Class III Intubation Access Assessment: Probably Good - Pulmonary Exam CTA: Yes - Cardiac Exam Cardiac Exam: No Murmur - Pre-Operative Health Status ASA Pre-Surgery Classification: ASA4 Proposed Anesthetic Plan: MAC - Pulmonary Hx Smoking: No Hx Asthma: No COPD: Yes Hx Pneumonia: No Hx Sleep Apnea: No (QUIQUE PRE SCREEN HIGH RISK) - Cardiovascular System Hx Hypertension: Yes Hx Coronary Artery Disease: Yes Hx Heart Attack/AMI: No Hx Angina: Yes Hx Pacemaker: Yes (defibrillator) Hx Internal Defibrillator: Yes - Central Nervous System CVA: Yes Hx Psychiatric Problems: Yes (Insomnia) - Endocrine Hx Renal Disease: Yes (TTS dialysis (Dr. Layne)) Hx End Stage Renal Disease: Yes Hx Hypothyroidism: Yes - Hematic Hx Anemia: Yes - Other Systems Hx Cancer: No
[2019-01-02] MEDS ORDERED: AMIDATE IV ONE (13:01)
[2019-01-02] MEDS ORDERED: VERSED IV ONE (13:01)
[2019-01-02] MEDS ORDERED: DIPRIVAN 10 MG/ML IV ONE (13:01)
[2019-01-02] MEDS ORDERED: NEO SYNEPHRINE/NS Syringe(OR USE) IV ONE (13:03)
--- NOTE | 2019-01-02 13:30 | Post Operative Note ---
Pre-op diagnosis: Dysphagia, malnutrition Post-op diagnosis: other (Normal EGD, successful G-tube placement) Findings: 1. Normal EGD 2. Successful G-tube placement Procedure: EGD with PEG placement Anesthesia: MAC Surgeon: CATHY MATIAS Estimated blood loss: minimal Pathology: none Condition: stable Disposition: floor (May initiate TF in 4 hours.)
--- NOTE | 2019-01-02 14:21 | Operative Report ---
G-TUBE PLACEMENT REPORT PROCEDURE: Upper endoscopy and G-tube placement. PREOPERATIVE DIAGNOSES: Poor p.o. intake, dysphagia. POSTOPERATIVE DIAGNOSIS: Normal endoscopy with G-tube placement. SEDATION: MAC by Anesthesia. HISTORY: The patient is a 63-year-old detention resident with CVA and dementia who has oropharyngeal dysphagia, but is able to take nectar-thickened liquids. However, he has decreased mentation and does not take adequate p.o. intake for nutritional maintenance. Therefore, G-tube placement is requested. DESCRIPTION OF PROCEDURE: Indications, risks, and benefits were explained to the patient's nephew, Jennifer, and consent was obtained. The patient was placed on back on exam table and sedated. Video endoscope was passed through the mouth and oropharynx into the descending duodenum. Scope was then gradually withdrawn with close inspection of mucosa into the gastric lumen. This was insufflated. An appropriate location was transilluminated and identified on the abdominal wall using ballottement. This was prepped and draped in a sterile fashion, 3 mL of 1% Xylocaine were infiltrated into the skin and subcutaneous tissues using the safe track technique. Trocar was then placed percutaneously into that region into the gastric lumen. A guidewire was passed through the trocar into the lumen and grasped with a snare and pulled out the mouth. Subsequently, a 20-Cambodian pull type G-tube was attached to the wire at the mouth and pulled through the mouth and oropharynx into the gastric lumen and out the skin. External bumper was fixed at 3.5 cm. Repeat endoscopy was performed to confirm placement. FINDINGS: 1. Normal esophagus. 2. Normal gastric antrum, fundus, body, and cardia. 3. Normal appearing duodenal bulb and duodenum. 4. Successful G-tube placement. COMPLICATIONS: The patient had transient run of atrial flutter with a ventricular rate down to 40 cm, lasting less than 30 seconds. This reversed quickly spontaneously. There were no other complications. ESTIMATED BLOOD LOSS: Minimal. IMPRESSION: 1. Normal endoscopy. 2. Successful G-tube placement. PLAN: May use G-tube in 4 hours. JOB# [id number] HRC/NTS
--- NOTE | 2019-01-02 16:09 | Progress Note ---
Assessment and Plan 63 yo M with 1. necrotic, infected, stage 4 sacral wound 2. malnutrition 3. failure to thrive 4. bedbound 5. AMS 6. ESRD on HD 7. hyponatremia Plan: 1. Sacral wound with more necrotic tissue and purulent drainage. will need additional debridement. However, wound will not heal despite debridement as it is very close to rectum and continues to be soiled after every bowel movement. Patient is incontinent. I discussed this with his nephew Jennifer Mims and explained that the patient will need a diverting colostomy, likely permanent, to aid in wound healed. I encouraged him to speak with his family. He will have a decision on Saturday as to how to proceed. If they are not willing to proceed with aggressive care, hospice would be an alternative option. 2. MRI pelvis pending to r/o osteo - Patient's nephew will fill forms out tomorrow 3. c/w IV abx 4. continue offloading and frequent turning of patient 5. start TF per GI 6. wound cultures obtained D/W Dr. Morrow. Thank you, please call with questions. Subjective Date of service: 01/02/19 Narrative: Pt seen and examined. S/p PEG tube placement. +Fever overnight. Objective Vital Signs - 12hr 01/02/19 01/02/19 01/02/19 07:51 11:57 12:00 Temperature 97.4 F L Pulse Rate 98 H 99 H Pulse Rate [ 78 Apical] Respiratory 14 18 Rate Blood Pressure 117/59 138/71 O2 Sat by Pulse 100 100 Oximetry 01/02/19 01/02/19 01/02/19 12:02 13:35 13:45 Temperature 97.4 F L 98.2 F Pulse Rate 99 H 100 H 94 H Pulse Rate [ Apical] Respiratory 14 16 16 Rate Blood Pressure 138/71 127/79 143/60 O2 Sat by Pulse 100 100 100 Oximetry 01/02/19 01/02/19 01/02/19 13:55 14:05 14:15 Temperature Pulse Rate 96 H 87 95 H Pulse Rate [ Apical] Respiratory 17 16 16 Rate Blood Pressure 147/70 148/58 139/66 O2 Sat by Pulse 100 100 100 Oximetry - General physical appearance Narrative Exam: Gen: Arousable. NAD CV: s1, S2+ resp: even and unlabored Sacrum: Dressing and packing removed from wound. Some old blood clot and purulent fluid evacuated. Large sacral wound extending to bone with necrotic tissue at base and purulent drainage. Additional satellite wounds with eschar. Main wound and inferiormost small wound very close to rectum and stained by stool. Wounds cleansed and packed with dakins moistened gauze, covered with dry gauze and covered with sacral foam dressing. - Labs 01/01/19 17:26 01/01/19 17:32 Diabetes panel 01/01/19 Range/Units 17:32 Sodium 138 (137-145) mmol/L Potassium 3.0 L (3.6-5.0) mmol/L Chloride 95.5 L (98-107) mmol/L Carbon Dioxide 30 (22-30) mmol/L BUN 14 (9-20) mg/dL Creatinine 2.1 H (0.8-1.5) mg/dL Glucose 169 H (75-100) mg/dL Calcium 9.4 (8.4-10.2) mg/dL AST 9 (5-40) units/L ALT < 5 L (7-56) units/L Alkaline Phosphatase 114 (35-129) units/L Total Protein 5.9 L (6.3-8.2) g/dL Albumin 2.2 L (3.9-5) g/dL Calcium panel 01/01/19 Range/Units 17:32 Calcium 9.4 (8.4-10.2) mg/dL Phosphorus 1.40 L (2.5-4.5) mg/dL Albumin 2.2 L (3.9-5) g/dL Pituitary panel 01/01/19 Range/Units 17:32 Sodium 138 (137-145) mmol/L Potassium 3.0 L (3.6-5.0) mmol/L Chloride 95.5 L (98-107) mmol/L Carbon Dioxide 30 (22-30) mmol/L BUN 14 (9-20) mg/dL Creatinine 2.1 H (0.8-1.5) mg/dL Glucose 169 H (75-100) mg/dL Calcium 9.4 (8.4-10.2) mg/dL Adrenal panel 01/01/19 Range/Units 17:32 Sodium 138 (137-145) mmol/L Potassium 3.0 L (3.6-5.0) mmol/L Chloride 95.5 L (98-107) mmol/L Carbon Dioxide 30 (22-30) mmol/L BUN 14 (9-20) mg/dL Creatinine 2.1 H (0.8-1.5) mg/dL Glucose 169 H (75-100) mg/dL Calcium 9.4 (8.4-10.2) mg/dL Total Bilirubin 0.60 (0.1-1.2) mg/dL AST 9 (5-40) units/L ALT < 5 L (7-56) units/L Alkaline Phosphatase 114 (35-129) units/L Total Protein 5.9 L (6.3-8.2) g/dL Albumin 2.2 L (3.9-5) g/dL
[2019-01-02] MEDS ORDERED: SIMPLE SYRUP FEEDTUBE PRN ×2 (16:35)
[2019-01-02] MEDS ORDERED: SODIUM BICARBONATE FEEDTUBE PRN (16:35)
[2019-01-02] MEDS ORDERED: PANCREAZE DR 10,500 UNIT FEEDTUBE PRN (16:35)
[2019-01-02] MEDS: TYLENOL PO PRN (20:31)
[2019-01-02] MEDS: NEURONTIN PO SCH (20:33)
[2019-01-03] MEDS: NEURONTIN PO SCH ×2 (02:19→21:51)
[2019-01-03] MEDS: APRESOLINE PO SCH ×3 (05:37→21:51)
[2019-01-03] MEDS: ZOSYN/NS 2.25 GM/50ML 2.25 GM/50 ML BAG IV SCH ×3 (05:37→21:50)
[2019-01-03] MEDS: SODIUM CHLORIDE FLUSH SYRINGE 10 ML IV SCH ×2 (10:00→21:58)
[2019-01-03] MEDS: COLACE PO SCH ×2 (10:00→21:51)
[2019-01-03] MEDS: HEPARIN SUB-Q SCH ×2 (10:00→21:52)
[2019-01-03] MEDS: MIRALAX 3350 PO SCH (10:00)
[2019-01-03] MEDS ORDERED: NACL 0.9 (PRIMING MACHINE ONLY DIALYSIS) MC ONE (10:59)
--- NOTE | 2019-01-03 11:39 | Progress Note ---
Assessment and Plan Assessment and plan: 63-year-old -[place] male with multiple medical problems sent from [facility] for altered sensorium and decreased responsiveness. Patient end-stage renal disease hypertension insulin-dependent diabetes COPD and CHF. No fever or chills. Decreased responsive and not eating at all for the last 36 hours. No shortness of breath. No chest pain. Patient has failure to thrive, altered mentation and weight loss of 20 pounds since 12/08/2018. 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 Head exam is unremarkable., opens eyes, says Hi, does not seem to understand his medical condition No scleral icterus . Neck is without jugular venous distension, thyromegaly, or carotid bruits. Lungs are clear to auscultation. Cardiac exam reveals regular rate and Rhythm. First and second heart sounds normal. No murmurs, rubs or gallops. Abdominal exam reveals normal bowel sounds, no masses, no organomegaly and no aortic enlargement. Extremities are nonedematous and both femoral and pedal pulses are normal. 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 now, only says Hi, unable to have complex conversation - Constitutional Vitals: Temp Pulse Resp BP Pulse Ox 98.3 F 102 H 16 122/68 100 01/03/19 10:15 01/03/19 10:30 01/03/19 10:01/03/19 10:30 01/03/19 05:13 General appearance: Present: no acute distress, cachectic, disheveled Results - Labs CBC & Chem 7: 01/07/19 00:45 01/07/19 11:16 Labs: Laboratory Last Values WBC 15.9 K/mm3 (4.5-11.0) H 01/01/19 17:26 RBC 3.15 M/mm3 (3.65-5.03) L 01/01/19 17:26 Hgb 7.9 gm/dl (11.8-15.2) L 01/01/19 17:26 Hct 25.7 % (35.5-45.6) L 01/01/19 17:26 MCV 82 fl (84-94) L 01/01/19 17:26 MCH 25 pg (28-32) L 01/01/19 17:26 MCHC 31 % (32-34) L 01/01/19 17:26 RDW 20.1 % (13.2-15.2) H 01/01/19 17:26 Plt Count 120 K/mm3 (140-440) L 01/01/19 17:26 Lymph % (Auto) Mop Handle Assembler 12/27/18 07:04 [place] % (Auto) Mop Handle Assembler 12/27/18 07:04 Eos % (Auto) Mop Handle Assembler 12/27/18 07:04 Baso % (Auto) Mop Handle Assembler 12/27/18 07:04 Lymph # Mop Handle Assembler 12/27/18 07:04 [place] # Mop Handle Assembler 12/27/18 07:04 Eos # Mop Handle Assembler 12/27/18 07:04 Baso # Mop Handle Assembler 12/27/18 07:04 Add Manual Diff Complete 01/01/19 17:26 Total Counted 100 01/01/19 17:26 Seg Neutrophils % Mop Handle Assembler 01/01/19 17:26 Seg Neuts % (Manual) 92.0 % (40.0-70.0) H 01/01/19 17:26 0 % 01/01/19 17:26 3.0 % (13.4-35.0) L 01/01/19 17:26 Reactive Lymphs % (Man) 0 % 01/01/19 17:26 5.0 % (0.0-7.3) 01/01/19 17:26 0 % (0.0-4.3) 01/01/19 17:26 0 % (0.0-1.8) 01/01/19 17:26 0 % 01/01/19 17:26 0 % 01/01/19 17:26 0 % 01/01/19 17:26 0 % 01/01/19 17:26 Nucleated RBC % Not Reportable 01/01/19 17:26 Seg Neutrophils # Mop Handle Assembler 12/27/18 07:04 Seg Neutrophils # Man 14.6 K/mm3 (1.8-7.7) H 01/01/19 17:26 Band Neutrophils # 0.0 K/mm3 01/01/19 17:26 0.5 K/mm3 (1.2-5.4) L 01/01/19 17:26 Abs React Lymphs (Man) 0.0 K/mm3 01/01/19 17:26 0.8 K/mm3 (0.0-0.8) 01/01/19 17:26 0.0 K/mm3 (0.0-0.4) 01/01/19 17:26 0.0 K/mm3 (0.0-0.1) 01/01/19 17:26 0.0 K/mm3 01/01/19 17:26 0.0 K/mm3 01/01/19 17:26 0.0 K/mm3 01/01/19 17:26 Blast Cells # 0.0 K/mm3 01/01/19 17:26 WBC Morphology Not Reportable 01/01/19 17:26 Hypersegmented Neuts Not Reportable 01/01/19 17:26 Hyposegmented Neuts Not Reportable 01/01/19 17:26 Hypogranular Neuts Not Reportable 01/01/19 17:26 Not Reportable 01/01/19 17:26 Not Reportable 01/01/19 17:26 Not Reportable 01/01/19 17:26 Not Reportable 01/01/19 17:26 Not Reportable 01/01/19 17:26 Not Reportable 01/01/19 17:26 Not Reportable 01/01/19 17:26 Not Reportable 01/01/19 17:26 Plt Clumps, EDTA Not Reportable 01/01/19 17:26 Not Reportable 01/01/19 17:26 Not Reportable 01/01/19 17:26 Not Reportable 01/01/19 17:26 Plt Morphology Comment Not Reportable 01/01/19 17:26 RBC Morphology Not Reportable 01/01/19 17:26 Dimorphic RBCs Not Reportable 01/01/19 17:26 Not Reportable 01/01/19 17:26 1+ 01/01/19 17:26 Not Reportable 01/01/19 17:26 1+ 01/01/19 17:26 Not Reportable 01/01/19 17:26 Not Reportable 01/01/19 17:26 Not Reportable 01/01/19 17:26 Not Reportable 01/01/19 17:26 Not Reportable 01/01/19 17:26 Not Reportable 01/01/19 17:26 Not Reportable 01/01/19 17:26 Not Reportable 01/01/19 17:26 Not Reportable 01/01/19 17:26 Not Reportable 01/01/19 17:26 Not Reportable 01/01/19 17:26 Not Reportable 01/01/19 17:26 Not Reportable 01/01/19 17:26 Not Reportable 01/01/19 17:26 Not Reportable 01/01/19 17:26 Acanthocytes (Spur) Not Reportable 01/01/19 17:26 Rouleaux Not Reportable 01/01/19 17:26 Not Reportable 01/01/19 17:26 Not Reportable 01/01/19 17:26 Not Reportable 01/01/19 17:26 Not Reportable 01/01/19 17:26 Hem Pathologist Commnt No 01/01/19 17:26 PT 18.0 Sec. (12.2-14.9) H 01/02/19 05:39 INR 1.39 (0.87-1.13) H 01/02/19 05:39 Sodium 138 mmol/L (137-145) 01/01/19 17:32 Potassium 3.0 mmol/L (3.6-5.0) L 01/01/19 17:32 Chloride 95.5 mmol/L (98-107) L 01/01/19 17:32 Carbon Dioxide 30 mmol/L (22-30) 01/01/19 17:32 16 mmol/L 01/01/19 17:32 BUN 14 mg/dL (9-20) 01/01/19 17:32 2.1 mg/dL (0.8-1.5) H 01/01/19 17:32 Estimated GFR 39 ml/min 01/01/19 17:32 7 % 01/01/19 17:32 Glucose 169 mg/dL (75-100) H 01/01/19 17:32 POC Glucose 119 (70-105) H 01/03/19 07:16 < 4.2 % (4-6) 12/26/18 17:12 Lactic Acid 1.10 mmol/L (0.7-2.0) 12/27/18 07:04 Calcium 9.4 mg/dL (8.4-10.2) 01/01/19 17:32 Phosphorus 1.40 mg/dL (2.5-4.5) L 01/01/19 17:32 0.60 mg/dL (0.1-1.2) 01/01/19 17:32 AST 9 units/L (5-40) 01/01/19 17:32 ALT < 5 units/L (7-56) L 01/01/19 17:32 114 units/L (35-129) 01/01/19 17:32 29 units/L (55-170) L 12/26/18 17:12 0.158 ng/mL (0.00-0.029) H* 12/26/18 17:12 5.9 g/dL (6.3-8.2) L 01/01/19 17:32 2.2 g/dL (3.9-5) L 01/01/19 17:32 0.6 % 01/01/19 17:32 Triglycerides 75 mg/dL (2-149) 12/26/18 17:12 Cholesterol 109 mg/dL (50-199) 12/26/18 17:12 43 mg/dL (50-130) L 12/26/18 17:12 41 mg/dL (40-59) 12/26/18 17:12 2.65 % 12/26/18 17:12 PTH Intact 178.6 pg/mL (15-65) H 01/01/19 17:32 Random Vancomycin 9.1 ug/mL (0-40.0) 01/02/19 05:39 Active Medications - Current Medications Current Medications: Generic Name Dose Route Start Last Admin Trade Name Freq PRN Reason Stop Dose Admin Acetaminophen 650 mg 12/26/18 21:40 01/02/19 20:31 Tylenol PO 650 mg Q4H PRN Administration Pain MILD(1-3)/Fever >100.5/HILL Lipase/Protease/Amylase 1 each 12/27/18 17:37 Pancrejewel Barrientos 10,500 Unit FEEDTUBE PRN PRN For Clogged Feeding Tube Aspirin 81 mg 12/27/18 10:00 01/02/19 10:00 Halfprin Ec PO Not Given DAILY [facility] Docusate Sodium 100 mg 12/26/18 22:00 01/02/19 21:28 Colace PO Not Given BID [facility] Famotidine 20 mg 12/27/18 10:00 01/02/19 10:00 Pepcid PO Not Given DAILY [facility] Folic Acid 1 mg 12/27/18 10:00 01/02/19 10:00 Folvite PO Not Given DAILY [facility] Gabapentin 100 mg 12/26/18 22:00 01/03/19 02:19 Neurontin PO Not Given QHS [facility] Heparin Sodium (Porcine) 5,000 unit 12/26/18 22:00 01/02/19 21:28 Heparin SUB-Q Not Given Q12HR [facility] Hydralazine HCl 100 mg 12/26/18 22:00 01/03/19 05:37 Apresoline PO 100 mg Q8HR SANCHEZ Administration Piperacillin Sod/Tazobactam Sod 2.25 gm in 50 mls @ 100 mls/hr 12/31/18 14:00 01/03/19 05:37 Zosyn/Ns 2.25 Gm/50ml IV 100 mls/hr Q8HR SANCHEZ Administration Protocol Sodium Chloride 1,000 mls @ 50 mls/hr 01/02/19 11:00 01/02/19 12:20 Nacl 0.9% 1000 Ml IV 50 mls/hr DIRECT SANCHEZ Administration Vancomycin HCl 1 gm in 250 mls @ 167.007 mls/hr 01/03/19 20:00 Vancomycin/Ns 1 Gm/250 Ml IV 01/03/19 21:29 ONCE ONE Metoprolol Tartrate 5 mg 12/27/18 18:55 12/29/18 05:41 Lopressor IV 5 mg Q5MIN PRN Administration increased heart rate Metoprolol Tartrate 100 mg 12/31/18 22:00 01/02/19 21:31 Lopressor PO Not Given BID [facility]Z Ondansetron HCl 4 mg 12/26/18 21:40 Zofran IV Q8H PRN Nausea And Vomiting Polyethylene Glycol 17 gm 12/27/18 10:00 01/02/19 10:00 Miralax 3350 PO Not Given QDAY [facility]Z Risperidone 0.5 mg 12/26/18 22:00 01/02/19 22:59 Risperdal PO Not Given QHS [facility] Risperidone 1 mg 12/27/18 10:00 01/02/19 10:00 Risperdal PO Not Given QAM [facility] Sertraline HCl 100 mg 12/27/18 10:00 01/02/19 10:00 Zoloft PO Not Given QDAY SANCHEZ Simple Syrup 15 ml 12/27/18 17:37 Simple Syrup FEEDTUBE PRN PRN Hypoglycemia Simple Syrup 30 ml 12/27/18 17:37 Simple Syrup FEEDTUBE PRN PRN Hypoglycemia Sodium Bicarbonate 325 mg 12/27/18 17:37 Sodium Bicarbonate FEEDTUBE PRN PRN For Clogged Feeding Tube Sodium Chloride 10 ml 12/26/18 22:00 01/02/19 22:59 Sodium Chloride Flush Syringe 10 Ml IV Not Given BID SANCHEZ Sodium Chloride 10 ml 12/26/18 21:40 Sodium Chloride Flush Syringe 10 Ml IV PRN PRN LINE FLUSH Sodium Hypochlorite 1 applic 01/01/19 15:31 Dakin's Half Strength TP Q12H PRN Wound Care Nutrition/Malnutrition Assess - Dietary Evaluation Nutrition/Malnutrition Findings: Nutrition Notes Start: 12/27/18 17:15 Freq: Status: Active Protocol: Document 01/02/19 16:19 RM (Rec: 01/02/19 16:34 RM [id number]) Nutrition Notes Initial or Follow up Reassessment Current Diagnosis CKD (stage V CKD),Diabetes, Hypertension Other Pertinent Diagnosis S/P PEG, Sacral wound, FTT, acute encephalopathy Current Diet NPO Labs/Tests K 3 Phos 1.4 Cr 2.1 BUN 14 GFR 39 Pertinent Medications Reviewed Height 5 ft 7 in Weight 80.2 kg Munith Body Weight (kg) 67.27 BMI 27.6 Weight change and time frame Wt loss noted. Likely d/t fluid change. Subjective/Other Information Consulted for TF recommendation. Burn Absent Trauma Absent #2 Nutrition Diagnosis Increased nutrient needs ( specify in comment below) #1 Nutrition Diagnosis Inadequate oral intake Diagnosis Progress(for reassessment Continues documentation) Is patient on ventilator? No Is Patient Ambulatory and/or Out of Bed No REE-(Nada-[place] Jeoh-confined to bed) 1865.928 Kcal/Kg value to use for calculation 17 Approximate Energy Requirements Using 1363 kcal/Kg Calculation Used for Recommendations Kcal/kg Additional Notes Protein Needs: 95-119g (1.2-1 .5g/kg 79kg adjBW) Fluid Needs: 1 ml/kcal Nutrition Intervention Nutrition Support: Glucerna 1.2 at 50 ml/hr. Water flush 100 mls q 4 hrs. Kcal 1,440 Protein (gm) 72 Fluid (mL) 966 Goal #1 Meet at least 75% of kcal and protein needs Anticipated Discharge Needs: Unable to determine at this time Follow-Up By: 01/04/19 Additional Comments Follow for new TF and renal labs
--- NOTE | 2019-01-03 11:41 | Progress Note ---
Assessment and Plan Impression * End-stage renal disease on maintenance hemodialysis * Altered mental status * Sacral decubitus * Hypokalemia * Failure to thrive * Hypophosphatemia * Malnutrition * Anemia secondary to ESRD Recommendations * Patient is currently undergoing hemodialysis. Tolerating well. * Continue dialysis on TTS schedule for now * Adjust dialysis potassium bath to 3K * Replace phosphorus * Antibiotic therapy and local wound care as per primary team * Avoid nephrotoxins * Epogen with dialysis * Adjust diet and meds were ESRD state Subjective Date of service: 01/03/19 Principal diagnosis: AMS; AFib Interval history: Patient is currently undergoing hemodialysis. Tolerating well. Not answering any questions. Objective - Vital Signs Vital signs: Vital Signs - 12hr 01/02/19 01/02/19 01/03/19 23:46 23:47 00:00 Temperature 98.4 F Pulse Rate 88 Respiratory 20 20 Rate Blood Pressure 124/54 O2 Sat by Pulse 100 Oximetry 01/03/19 01/03/19 01/03/19 05:13 05:14 07:10 Temperature 97.7 F 97.4 F L Pulse Rate 99 H 100 H Respiratory 18 14 Rate Blood Pressure 124/59 132/67 O2 Sat by Pulse 100 Oximetry 01/03/19 01/03/19 10:15 10:30 Temperature 98.3 F Pulse Rate 102 H 102 H Respiratory 16 Rate Blood Pressure 122/68 122/68 O2 Sat by Pulse Oximetry - General Appearance General appearance: well-developed, well-nourished, appears stated age EENT: PERRL, mucous membranes moist Neck: no JVD, no thyromegaly, no carotid bruit, supple, other (right IJ PermCath in place) Respiratory: Present: Clear to Ascultation Cardiology: regular, normal heart rate Gastrointestinal: normal, normoactive bowel sounds, other (PEG tube in place) Integumentary: other (no edema) - Lab 01/01/19 17:26 01/01/19 17:32 Most recent lab results Calcium 9.4 mg/dL (8.4-10.2) 01/01/19 17:32 Phosphorus 1.40 mg/dL (2.5-4.5) L 01/01/19 17:32 Medications & Allergies - Medications Allergies/Adverse Reactions: Allergies haloperidol [From Haldol] Adverse Reaction (Verified 03/13/18 12:10) Unknown haloperidol lactate [From Haldol] Adverse Reaction (Verified 03/13/18 12:10) Unknown Home Medications: Home Medications Medication Instructions Recorded Confirmed Last Taken Type risperiDONE [RisperDAL] 1 mg PO QAM 03/13/18 12/27/18 Unknown History Sertraline [Zoloft] 100 mg PO QDAY 08/26/18 12/27/18 Unknown History risperiDONE [RisperDAL] 0.5 mg PO HS 08/26/18 12/27/18 Unknown History Polyethylene Glycol 3350 [Miralax 17 gm PO QDAY #30 packet 11/05/18 12/27/18 Unknown Rx 3350] Aspirin EC 81 mg PO DAILY #30 11/19/18 12/27/18 Unknown Rx Docusate Sodium [Colace CAP] 100 mg PO BID #60 11/19/18 12/27/18 Unknown Rx Folic Acid [Folvite] 1 mg PO DAILY #30 tab 11/19/18 12/27/18 Unknown Rx Famotidine [Pepcid] 20 mg PO DAILY tablet 12/08/18 12/27/18 Unknown Rx Gabapentin [Neurontin] 100 mg PO QHS capsule 12/08/18 12/27/18 Unknown Rx Metoprolol [Lopressor TAB] 50 mg PO BID 30 Days tablet 12/08/18 12/27/18 Unknown Rx Sevelamer Carbonate [Renvela] 800 mg PO TIDWM tablet 12/08/18 12/27/18 Unknown Rx hydrALAZINE [Apresoline TAB] 100 mg PO Q8HR #120 tablet 12/08/18 12/27/18 Unknown Rx Acetaminophen [Acetaminophen TAB] 650 mg PO Q12H PRN 12/15/18 12/27/18 Unknown History Amino Acids/Protein Hydrolys 30 ml PO BID 12/15/18 12/27/18 Unknown History [Pro-Stat Sugar Free Liquid] Glucagon,Human Recombinant 1 mg IJ Q15MIN PRN 12/15/18 12/27/18 Unknown History [Glucagon Emergency Kit] Insulin Aspart [NovoLOG 100 See Protocol SQ QWEEK 12/15/18 12/27/18 Unknown History UNITS/ML VIAL] Epoetin Solitario 10,000 Unit [Procrit] 10,000 unit IV UMA PRN vial 12/18/18 12/27/18 Unknown Rx Lispro Insulin [HumaLOG] 0 unit SUB-Q ACHS units 12/18/18 12/27/18 Unknown Rx risperiDONE [RisperDAL] 0.5 mg PO QHS tablet 12/18/18 12/27/18 Unknown Rx Active Medications: Generic Name Dose Route Start Last Admin Trade Name Freq PRN Reason Stop Dose Admin Acetaminophen 650 mg 12/26/18 21:40 01/02/19 20:31 Tylenol PO 650 mg Q4H PRN Administration Pain MILD(1-3)/Fever >100.5/HILL Lipase/Protease/Amylase 1 each 12/27/18 17:37 Pancreaze 10,500 Unit FEEDTUBE PRN PRN For Clogged Feeding Tube Aspirin 81 mg 12/27/18 10:00 01/02/19 10:00 Halfprin Ec PO Not Given DAILY [facility] Docusate Sodium 100 mg 12/26/18 22:00 01/02/19 21:28 Colace PO Not Given BID [facility] Famotidine 20 mg 12/27/18 10:00 01/02/19 10:00 Pepcid PO Not Given DAILY [facility] Folic Acid 1 mg 12/27/18 10:00 01/02/19 10:00 Folvite PO Not Given DAILY [facility] Gabapentin 100 mg 12/26/18 22:00 01/03/19 02:19 Neurontin PO Not Given QHS [facility] Heparin Sodium (Porcine) 5,000 unit 12/26/18 22:00 01/02/19 21:28 Heparin SUB-Q Not Given Q12HR [facility] Hydralazine HCl 100 mg 12/26/18 22:00 01/03/19 05:37 Apresoline PO 100 mg Q8HR [facility] Administration Piperacillin Sod/Tazobactam Sod 2.25 gm in 50 mls @ 100 mls/hr 12/31/18 14:00 01/03/19 05:37 Zosyn/Ns 2.25 Gm/50ml IV 100 mls/hr Q8HR [facility] Administration Protocol Sodium Chloride 1,000 mls @ 50 mls/hr 01/02/19 11:00 01/02/19 12:20 Nacl 0.9% 1000 Ml IV 50 mls/hr DIRECT [facility] Administration Vancomycin HCl 1 gm in 250 mls @ 167.007 mls/hr 01/03/19 20:00 Vancomycin/Ns 1 Gm/250 Ml IV 01/03/19 21:29 ONCE ONE Metoprolol Tartrate 5 mg 12/27/18 18:55 12/29/18 05:41 Lopressor IV 5 mg Q5MIN PRN Administration increased heart rate Metoprolol Tartrate 100 mg 12/31/18 22:00 01/02/19 21:31 Lopressor PO Not Given BID [facility] Ondansetron HCl 4 mg 12/26/18 21:40 Zofran IV Q8H PRN Nausea And Vomiting Polyethylene Glycol 17 gm 12/27/18 10:00 01/02/19 10:00 Miralax 3350 PO Not Given QDAY [facility] Risperidone 0.5 mg 12/26/18 22:00 01/02/19 22:59 Risperdal PO Not Given QHS [facility] Risperidone 1 mg 12/27/18 10:00 01/02/19 10:00 Risperdal PO Not Given QAM [facility] Sertraline HCl 100 mg 12/27/18 10:00 01/02/19 10:00 Zoloft PO Not Given QDAY [facility] Simple Syrup 15 ml 12/27/18 17:37 Simple Syrup FEEDTUBE PRN PRN Hypoglycemia Simple Syrup 30 ml 12/27/18 17:37 Simple Syrup FEEDTUBE PRN PRN Hypoglycemia Sodium Bicarbonate 325 mg 12/27/18 17:37 Sodium Bicarbonate FEEDTUBE PRN PRN For Clogged Feeding Tube Sodium Chloride 10 ml 12/26/18 22:00 01/02/19 22:59 Sodium Chloride Flush Syringe 10 Ml IV Not Given BID [facility] Sodium Chloride 10 ml 12/26/18 21:40 Sodium Chloride Flush Syringe 10 Ml IV PRN PRN LINE FLUSH Sodium Hypochlorite 1 applic 01/01/19 15:31 Dakin's Half Strength TP Q12H PRN Wound Care
[2019-01-03] MEDS ORDERED: KPHOS 15 MMOL in NACL 0.9% 250ML 250 ML IV ONE (13:00)
[2019-01-03] MEDS ORDERED: SIMPLE SYRUP FEEDTUBE PRN ×2 (13:07)
[2019-01-03] MEDS ORDERED: SODIUM BICARBONATE FEEDTUBE PRN (13:07)
[2019-01-03] MEDS ORDERED: PANCREAZE DR 10,500 UNIT FEEDTUBE PRN (13:07)
[2019-01-03] MEDS: RisperDAL PO SCH ×2 (16:16→21:52)
[2019-01-03] MEDS: ZOLOFT PO SCH (16:16)
[2019-01-03] MEDS: PEPCID PO SCH (16:16)
[2019-01-03] MEDS: LOPRESSOR PO SCH ×2 (16:17→21:51)
[2019-01-03] MEDS: HALFPRIN EC PO SCH (16:17)
[2019-01-03] MEDS: FOLVITE PO SCH (16:17)
[2019-01-03] MEDS: DAKIN'S HALF STRENGTH TP PRN (17:03)
[2019-01-03 17:29] LABS: Hematocrit 23.6 % (35.5-45.6); Hemoglobin 7.4 gm/dl (11.8-15.2); Mean Corpuscular HGB Conc 31 % (32-34); Mean Corpuscular Volume 81 fl (84-94); Platelet Count 123 K/mm3 (140-440); Red Blood Count 2.92 M/mm3 (3.65-5.03); Red Cell Distribution Width 19.6 % (13.2-15.2)
[2019-01-03 17:47] LABS: Calcium 9.2 mg/dL (8.4-10.2)
[2019-01-03 18:21] LABS: Basophils % (Manual) 0 % (0.0-1.8); Eosinophils % (Manual) 0 % (0.0-4.3); Hypochromasia 1+; Total Cells Counted 100
[2019-01-03 18:22] LABS: Anisocytosis 1+; Ovalocytes Few; Platelet Estimate Consistent w Auto; Poikilocytosis Few; Target Cells Few
[2019-01-03] MEDS ORDERED: VANCOMYCIN/NS 1 GM/250 ML 1 GM/250 ML BAG IV ONE (20:00)
[2019-01-03] MEDS: SODIUM CHLORIDE FLUSH SYRINGE 10 ML IV PRN (22:02)
[2019-01-04] MEDS: APRESOLINE PO SCH ×3 (06:46→23:13)
[2019-01-04] MEDS: ZOSYN/NS 2.25 GM/50ML 2.25 GM/50 ML BAG IV SCH ×3 (06:46→23:08)
[2019-01-04] MEDS: LOPRESSOR PO SCH ×2 (10:25→23:14)
[2019-01-04] MEDS: FOLVITE PO SCH (10:25)
[2019-01-04] MEDS: RisperDAL PO SCH ×2 (10:25→23:13)
[2019-01-04] MEDS: COLACE PO SCH ×2 (10:25→23:13)
[2019-01-04] MEDS: HALFPRIN EC PO SCH (10:25)
[2019-01-04] MEDS: PEPCID PO SCH (10:25)
[2019-01-04] MEDS: ZOLOFT PO SCH (10:25)
[2019-01-04] MEDS: SODIUM CHLORIDE FLUSH SYRINGE 10 ML IV SCH ×2 (10:26→23:14)
[2019-01-04] MEDS: HEPARIN SUB-Q SCH ×2 (10:26→23:09)
[2019-01-04] MEDS: MIRALAX 3350 PO SCH (10:26)
--- NOTE | 2019-01-04 11:13 | Progress Note ---
Assessment and Plan Assessment and plan: 63-year-old -[place] male with multiple medical problems sent from [facility] for altered sensorium and decreased responsiveness. Patient end-stage renal disease hypertension insulin-dependent diabetes COPD and CHF. No fever or chills. Decreased responsive and not eating at all for the last 36 hours. No shortness of breath. No chest pain. Patient has failure to thrive, altered mentation and weight loss of 20 pounds since 12/08/2018. SIRS, fever cont abx, ID consulted, fup cx sacral decub, POA, stage 2-3 worsening, cont wound care Acute encephalopathy Secondary to uremia, and FTT, improving Patient is on HD Nephrology consult appreciated Acute exacerbation of CHF (congestive heart failure), and rapid Afib cont hd, optimize meds per cardiology, cardiology signed off 01/02 ESRD needing dialysis Continue hemo dialysis hypokalemia- replete Insulin dependent diabetes mellitus - A1c is 4.2 insulin was dc FTT, severe malnutrition -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, cont oral diet, resource manager forester input appreciated sp peg placement 01/02 Hypertension Continue antihypertensives Peripheral neuropathy Continue gabapentin Anemia Continue epoetin Elevated lactic acid level Sepsis unlikely, resolved Elevated troponin Secondary to end-stage renal disease, chf and afib, cardiology input appreciated DVT prophylaxis On heparin and GI prophylaxis History Interval history: continues to have weakness, and decreased Po intake opens eyes and is verbal , no more fever, no vomiting, no seizures Hospitalist Physical - Physical exam Narrative exam: appears chronically ill Vital signs as documented. Head exam is unremarkable., opens eyes, says Fede, does not seem to understand his medical condition No scleral icterus . Neck is without jugular venous distension, thyromegaly, or carotid bruits. Lungs are clear to auscultation. Cardiac exam reveals regular rate and Rhythm. First and second heart sounds normal. No murmurs, rubs or gallops. Abdominal exam reveals normal bowel sounds, no masses, no organomegaly and no aortic enlargement. Extremities are nonedematous and both femoral and pedal pulses are normal. 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 now, only says Fede, unable to have complex conversation - Constitutional Vitals: Temp Pulse Resp BP Pulse Ox 98.0 F 102 H 18 125/55 90 01/04/19 08:32 01/04/19 08:32 01/04/19 08:32 01/04/19 08:32 01/04/19 08:32 General appearance: Present: no acute distress, cachectic, disheveled Results - Labs CBC & Chem 7: 01/07/19 00:45 01/07/19 11:16 Labs: Laboratory Last Values WBC 11.2 K/mm3 (4.5-11.0) H 01/03/19 17:16 RBC 2.92 M/mm3 (3.65-5.03) L 01/03/19 17:16 Hgb 7.4 gm/dl (11.8-15.2) L 01/03/19 17:16 Hct 23.6 % (35.5-45.6) L 01/03/19 17:16 MCV 81 fl (84-94) L 01/03/19 17:16 MCH 25 pg (28-32) L 01/03/19 17:16 MCHC 31 % (32-34) L 01/03/19 17:16 RDW 19.6 % (13.2-15.2) H 01/03/19 17:16 Plt Count 123 K/mm3 (140-440) L 01/03/19 17:16 Lymph % (Auto) Health Care Coordinator 12/27/18 07:04 Ward % (Auto) Health Care Coordinator 12/27/18 07:04 Eos % (Auto) Health Care Coordinator 12/27/18 07:04 Baso % (Auto) Health Care Coordinator 12/27/18 07:04 Lymph # Health Care Coordinator 12/27/18 07:04 Ward # Health Care Coordinator 12/27/18 07:04 Eos # Health Care Coordinator 12/27/18 07:04 Baso # Health Care Coordinator 12/27/18 07:04 Add Manual Diff Complete 01/03/19 17:16 Total Counted 100 01/03/19 17:16 Seg Neutrophils % Health Care Coordinator 01/03/19 17:16 Seg Neuts % (Manual) 96.0 % (40.0-70.0) H 01/03/19 17:16 0 % 01/03/19 17:16 2.0 % (13.4-35.0) L 01/03/19 17:16 Reactive Lymphs % (Man) 0 % 01/03/19 17:16 2.0 % (0.0-7.3) 01/03/19 17:16 0 % (0.0-4.3) 01/03/19 17:16 0 % (0.0-1.8) 01/03/19 17:16 0 % 01/03/19 17:16 0 % 01/03/19 17:16 0 % 01/03/19 17:16 0 % 01/03/19 17:16 Nucleated RBC % Not Reportable 01/03/19 17:16 Seg Neutrophils # Health Care Coordinator 12/27/18 07:04 Seg Neutrophils # Man 10.8 K/mm3 (1.8-7.7) H 01/03/19 17:16 Band Neutrophils # 0.0 K/mm3 01/03/19 17:16 0.2 K/mm3 (1.2-5.4) L 01/03/19 17:16 Abs React Lymphs (Man) 0.0 K/mm3 01/03/19 17:16 0.2 K/mm3 (0.0-0.8) 01/03/19 17:16 0.0 K/mm3 (0.0-0.4) 01/03/19 17:16 0.0 K/mm3 (0.0-0.1) 01/03/19 17:16 0.0 K/mm3 01/03/19 17:16 0.0 K/mm3 01/03/19 17:16 0.0 K/mm3 01/03/19 17:16 Blast Cells # 0.0 K/mm3 01/03/19 17:16 WBC Morphology Not Reportable 01/03/19 17:16 Hypersegmented Neuts Not Reportable 01/03/19 17:16 Hyposegmented Neuts Not Reportable 01/03/19 17:16 Hypogranular Neuts Not Reportable 01/03/19 17:16 Not Reportable 01/03/19 17:16 Not Reportable 01/03/19 17:16 Not Reportable 01/03/19 17:16 Not Reportable 01/03/19 17:16 Not Reportable 01/03/19 17:16 Not Reportable 01/03/19 17:16 Consistent w auto 01/03/19 17:16 Not Reportable 01/03/19 17:16 Plt Clumps, EDTA Not Reportable 01/03/19 17:16 Not Reportable 01/03/19 17:16 Not Reportable 01/03/19 17:16 Not Reportable 01/03/19 17:16 Plt Morphology Comment Not Reportable 01/03/19 17:16 RBC Morphology Not Reportable 01/03/19 17:16 Dimorphic RBCs Not Reportable 01/03/19 17:16 Not Reportable 01/03/19 17:16 1+ 01/03/19 17:16 Few 01/03/19 17:16 1+ 01/03/19 17:16 Not Reportable 01/03/19 17:16 Not Reportable 01/03/19 17:16 Not Reportable 01/03/19 17:16 Not Reportable 01/03/19 17:16 Not Reportable 01/03/19 17:16 Few 01/03/19 17:16 Not Reportable 01/03/19 17:16 Few 01/03/19 17:16 Not Reportable 01/03/19 17:16 Not Reportable 01/03/19 17:16 Not Reportable 01/03/19 17:16 Not Reportable 01/03/19 17:16 Not Reportable 01/03/19 17:16 Not Reportable 01/03/19 17:16 Not Reportable 01/03/19 17:16 Acanthocytes (Spur) Not Reportable 01/03/19 17:16 Rouleaux Not Reportable 01/03/19 17:16 Not Reportable 01/03/19 17:16 Not Reportable 01/03/19 17:16 Not Reportable 01/03/19 17:16 Not Reportable 01/03/19 17:16 Hem Pathologist Commnt No 01/03/19 17:16 PT 18.0 Sec. (12.2-14.9) H 01/02/19 05:39 INR 1.39 (0.87-1.13) H 01/02/19 05:39 Sodium 139 mmol/L (137-145) 01/03/19 17:09 Potassium 3.1 mmol/L (3.6-5.0) L 01/03/19 17:09 Chloride 101.0 mmol/L (98-107) 01/03/19 17:09 Carbon Dioxide 27 mmol/L (22-30) 01/03/19 17:09 14 mmol/L 01/03/19 17:09 BUN 11 mg/dL (9-20) 01/03/19 17:09 1.5 mg/dL (0.8-1.5) 01/03/19 17:09 Estimated GFR 57 ml/min 01/03/19 17:09 7 % 01/03/19 17:09 Glucose 143 mg/dL (75-100) H 01/03/19 17:09 POC Glucose 154 (70-105) H 01/03/19 16:10 < 4.2 % (4-6) 12/26/18 17:12 Lactic Acid 1.10 mmol/L (0.7-2.0) 12/27/18 07:04 Calcium 9.2 mg/dL (8.4-10.2) 01/03/19 17:09 Phosphorus 1.20 mg/dL (2.5-4.5) L 01/03/19 17:09 Magnesium 1.50 mg/dL (1.7-2.3) L 01/03/19 17:09 0.60 mg/dL (0.1-1.2) 01/01/19 17:32 AST 9 units/L (5-40) 01/01/19 17:32 ALT < 5 units/L (7-56) L 01/01/19 17:32 114 units/L (35-129) 01/01/19 17:32 29 units/L (55-170) L 12/26/18 17:12 0.158 ng/mL (0.00-0.029) H* 12/26/18 17:12 5.9 g/dL (6.3-8.2) L 01/01/19 17:32 2.2 g/dL (3.9-5) L 01/01/19 17:32 0.6 % 01/01/19 17:32 Triglycerides 75 mg/dL (2-149) 12/26/18 17:12 Cholesterol 109 mg/dL (50-199) 12/26/18 17:12 43 mg/dL (50-130) L 12/26/18 17:12 41 mg/dL (40-59) 12/26/18 17:12 2.65 % 12/26/18 17:12 PTH Intact 178.6 pg/mL (15-65) H 01/01/19 17:32 Random Vancomycin 9.1 ug/mL (0-40.0) 01/02/19 05:39 Active Medications - Current Medications Current Medications: Generic Name Dose Route Start Last Admin Trade Name Freq PRN Reason Stop Dose Admin Acetaminophen 650 mg 12/26/18 21:40 01/02/19 20:31 Tylenol PO 650 mg Q4H PRN Administration Pain MILD(1-3)/Fever >100.5/HILL Lipase/Protease/Amylase 1 each 01/03/19 13:07 Pancrejewel Barrientos 10,500 Unit FEEDTUBE PRN PRN For Clogged Feeding Tube Aspirin 81 mg 12/27/18 10:00 01/04/19 10:25 Halfprin Ec PO 81 mg DAILY SANCHEZ Administration Docusate Sodium 100 mg 12/26/18 22:00 01/04/19 10:25 Colace PO 100 mg BID SANCHEZ Administration Famotidine 20 mg 12/27/18 10:00 01/04/19 10:25 Pepcid PO 20 mg DAILY SANCHEZ Administration Folic Acid 1 mg 12/27/18 10:00 01/04/19 10:25 Folvite PO 1 mg DAILY SANCHEZ Administration Gabapentin 100 mg 12/26/18 22:00 01/03/19 21:51 Neurontin PO 100 mg QHS SANCHEZ Administration Heparin Sodium (Porcine) 5,000 unit 12/26/18 22:00 01/03/19 21:52 Heparin SUB-Q 5,000 unit Q12HR SANCHEZ Administration Hydralazine HCl 100 mg 12/26/18 22:00 01/04/19 06:46 Apresoline PO 100 mg Q8HR SANCHEZ Administration Piperacillin Sod/Tazobactam Sod 2.25 gm in 50 mls @ 100 mls/hr 12/31/18 14:00 01/04/19 06:46 Zosyn/Ns 2.25 Gm/50ml IV 100 mls/hr Q8HR SANCHEZ Administration Protocol Sodium Chloride 1,000 mls @ 50 mls/hr 01/02/19 11:00 01/02/19 12:20 Nacl 0.9% 1000 Ml IV 50 mls/hr DIRECT SANCHEZ Administration Metoprolol Tartrate 5 mg 12/27/18 18:55 12/29/18 05:41 Lopressor IV 5 mg Q5MIN PRN Administration increased heart rate Metoprolol Tartrate 100 mg 12/31/18 22:00 01/04/19 10:25 Lopressor PO 100 mg BID SANCHEZ Administration Ondansetron HCl 4 mg 12/26/18 21:40 Zofran IV Q8H PRN Nausea And Vomiting Polyethylene Glycol 17 gm 12/27/18 10:00 01/04/19 10:26 Miralax 3350 PO 17 gm QDAY SANCHEZ Administration Risperidone 0.5 mg 12/26/18 22:00 01/03/19 21:52 Risperdal PO 0.5 mg QHS SANCHEZ Administration Risperidone 1 mg 12/27/18 10:00 01/04/19 10:25 Risperdal PO 1 mg QAM SANCHEZ Administration Sertraline HCl 100 mg 12/27/18 10:00 01/04/19 10:25 Zoloft PO 100 mg QDAY SANCHEZ Administration Simple Syrup 15 ml 01/03/19 13:07 Simple Syrup FEEDTUBE PRN PRN Hypoglycemia Simple Syrup 30 ml 01/03/19 13:07 Simple Syrup FEEDTUBE PRN PRN Hypoglycemia Sodium Bicarbonate 325 mg 12/27/18 17:37 Sodium Bicarbonate FEEDTUBE PRN PRN For Clogged Feeding Tube Sodium Bicarbonate 325 mg 01/03/19 13:07 Sodium Bicarbonate FEEDTUBE PRN PRN For Clogged Feeding Tube Sodium Chloride 10 ml 12/26/18 22:00 01/04/19 10:26 Sodium Chloride Flush Syringe 10 Ml IV 10 ml BID SANCHEZ Administration Sodium Chloride 10 ml 12/26/18 21:40 01/03/19 22:02 Sodium Chloride Flush Syringe 10 Ml IV 10 ml PRN PRN Administration LINE FLUSH Sodium Hypochlorite 1 applic 01/01/19 15:31 01/03/19 17:03 Dakin's Half Strength TP 1 applicatio Q12H PRN Administration Wound Care Nutrition/Malnutrition Assess - Dietary Evaluation Nutrition/Malnutrition Findings: Nutrition Notes Start: 12/27/18 17:15 Freq: Status: Active Protocol: Document 01/03/19 13:00 EVELINE (Rec: 01/03/19 13:07 EVELINE [email or web address]) Nutrition Notes Initial or Follow up Brief Note Current Diet TF - Glucerna 1.2 at 50ml/hr Height 5 ft 7 in Weight 84.1 kg Sharps Body Weight (kg) 67.27 BMI 29.0 Subjective/Other Information Pt at HD at time of visit (12: 31). Per RN, TF was infusing at 10ml/hr; pt tolerating TF so far. Is patient on ventilator? No Is Patient Ambulatory and/or Out of Bed No REE-([facility]-confined to bed) [phone] Calculation Used for Recommendations [facility] Additional Notes Pro needs 1.2-1.4g/k- 118g/day Fluid needs 1-1.5L/day Nutrition Intervention Nutrition Support: Increase TF goal rate to Glucerna 1.2 at 65ml/hr with 100ml water flush q4h. Kcal 1,872 Protein (gm) 94 Carbohydrates (gm) 179 Fat (gm) 94 Fluid (mL) 1,256 Fiber (gm) 25 Goal #1 TF tolerance Goal #2 TF at goal rate to meet 90-100 % energy and pro needs Goal #3 Wound healing Follow-Up By: 01/05/19 Additional Comments F/U: TF goal rate/tolerance
--- NOTE | 2019-01-04 11:27 | Progress Note ---
Assessment and Plan Impression * End-stage renal disease on maintenance hemodialysis * Altered mental status * Sacral decubitus * Hypokalemia * Failure to thrive * Hypophosphatemia * Malnutrition * Anemia secondary to ESRD * Hypomagnesemia Recommendations * Patient had an uneventful hemodialysis yesterday . * Continue dialysis on TTS schedule for now * Use higher K bath for dialysis * Replace potassium, phosphorus and magnesium * Antibiotic therapy and local wound care as per primary team * Avoid nephrotoxins * Epogen with dialysis * Adjust diet and meds were ESRD state Subjective Date of service: 01/04/19 Principal diagnosis: AMS; AFib Interval history: Patient is clinically about the same. Remains nonverbal. Tolerating PEG tube feeding Objective - Vital Signs Vital signs: Vital Signs - 12hr 01/03/19 01/04/19 01/04/19 23:44 00:18 00:26 Temperature 97.8 F 98.9 F Pulse Rate 103 H 102 H Pulse Rate [ Apical] Respiratory 18 20 Rate Blood Pressure 152/71 138/53 O2 Sat by Pulse 100 100 Oximetry 01/04/19 01/04/19 01/04/19 01:00 04:40 08:07 Temperature 97.9 F Pulse Rate 103 H 100 H Pulse Rate [ 76 Apical] Respiratory 20 18 Rate Blood Pressure 136/66 O2 Sat by Pulse 100 Oximetry 01/04/19 08:32 Temperature 98.0 F Pulse Rate 102 H Pulse Rate [ Apical] Respiratory 18 Rate Blood Pressure 125/55 O2 Sat by Pulse 90 Oximetry - General Appearance General appearance: chronically ill, frail EENT: PERRL, mucous membranes moist Neck: no JVD, no thyromegaly, no carotid bruit, supple, other (IJ PermCath in place) Respiratory: Present: Clear to Ascultation Cardiology: regular, normal heart rate, S1S2, no murmurs Gastrointestinal: normal, normoactive bowel sounds, other (PEG tube in place) - Lab 01/03/19 17:16 01/03/19 17:09 Most recent lab results Calcium 9.2 mg/dL (8.4-10.2) 01/03/19 17:09 Phosphorus 1.20 mg/dL (2.5-4.5) L 01/03/19 17:09 Magnesium 1.50 mg/dL (1.7-2.3) L 01/03/19 17:09 Medications & Allergies - Medications Allergies/Adverse Reactions: Allergies haloperidol [From Haldol] Adverse Reaction (Verified 03/13/18 12:10) Unknown haloperidol lactate [From Haldol] Adverse Reaction (Verified 03/13/18 12:10) Unknown Home Medications: Home Medications Medication Instructions Recorded Confirmed Last Taken Type risperiDONE [RisperDAL] 1 mg PO QAM 03/13/18 12/27/18 Unknown History Sertraline [Zoloft] 100 mg PO QDAY 08/26/18 12/27/18 Unknown History risperiDONE [RisperDAL] 0.5 mg PO HS 08/26/18 12/27/18 Unknown History Polyethylene Glycol 3350 [Miralax 17 gm PO QDAY #30 packet 11/05/18 12/27/18 Unknown Rx 3350] Aspirin EC 81 mg PO DAILY #30 11/19/18 12/27/18 Unknown Rx Docusate Sodium [Colace CAP] 100 mg PO BID #60 11/19/18 12/27/18 Unknown Rx Folic Acid [Folvite] 1 mg PO DAILY #30 tab 11/19/18 12/27/18 Unknown Rx Famotidine [Pepcid] 20 mg PO DAILY tablet 12/08/18 12/27/18 Unknown Rx Gabapentin [Neurontin] 100 mg PO QHS capsule 12/08/18 12/27/18 Unknown Rx Metoprolol [Lopressor TAB] 50 mg PO BID 30 Days tablet 12/08/18 12/27/18 Unknown Rx Sevelamer Carbonate [Renvela] 800 mg PO TIDWM tablet 12/08/18 12/27/18 Unknown Rx hydrALAZINE [Apresoline TAB] 100 mg PO Q8HR #120 tablet 12/08/18 12/27/18 Un known Rx Acetaminophen [Acetaminophen TAB] 650 mg PO Q12H PRN 12/15/18 12/27/18 Unknown History Amino Acids/Protein Hydrolys 30 ml PO BID 12/15/18 12/27/18 Unknown History [Pro-Stat Sugar Free Liquid] Glucagon,Human Recombinant 1 mg IJ Q15MIN PRN 12/15/18 12/27/18 Unknown History [Glucagon Emergency Kit] Insulin Aspart [NovoLOG 100 See Protocol SQ QWEEK 12/15/18 12/27/18 Unknown History UNITS/ML VIAL] Epoetin Solitario 10,000 Unit [Procrit] 10,000 unit IV UMA PRN vial 12/18/18 12/27/18 Unknown Rx Lispro Insulin [HumaLOG] 0 unit SUB-Q ACHS units 12/18/18 12/27/18 Unknown Rx risperiDONE [RisperDAL] 0.5 mg PO QHS tablet 12/18/18 12/27/18 Unknown Rx Active Medications: Generic Name Dose Route Start Last Admin Trade Name Freq PRN Reason Stop Dose Admin Acetaminophen 650 mg 12/26/18 21:40 01/02/19 20:31 Tylenol PO 650 mg Q4H PRN Administration Pain MILD(1-3)/Fever >100.5/HILL Lipase/Protease/Amylase 1 each 01/03/19 13:07 Pancreaze 10,500 Unit FEEDTUBE PRN PRN For Clogged Feeding Tube Aspirin 81 mg 12/27/18 10:00 01/04/19 10:25 Halfprin Ec PO 81 mg DAILY SANCHEZ Administration Docusate Sodium 100 mg 12/26/18 22:00 01/04/19 10:25 Colace PO 100 mg BID SANCHEZ Administration Famotidine 20 mg 12/27/18 10:00 01/04/19 10:25 Pepcid PO 20 mg DAILY SANCHEZ Administration Folic Acid 1 mg 12/27/18 10:00 01/04/19 10:25 Folvite PO 1 mg DAILY SANCHEZ Administration Gabapentin 100 mg 12/26/18 22:00 01/03/19 21:51 Neurontin PO 100 mg QHS SANCHEZ Administration Heparin Sodium (Porcine) 5,000 unit 12/26/18 22:00 01/04/19 10:26 Heparin SUB-Q 5,000 unit Q12HR SANCHEZ Administration Hydralazine HCl 100 mg 12/26/18 22:00 01/04/19 06:46 Apresoline PO 100 mg Q8HR SANCHEZ Administration Piperacillin Sod/Tazobactam Sod 2.25 gm in 50 mls @ 100 mls/hr 12/31/18 14:00 01/04/19 06:46 Zosyn/Ns 2.25 Gm/50ml IV 100 mls/hr Q8HR SANCHEZ Administration Protocol Sodium Chloride 1,000 mls @ 50 mls/hr 01/02/19 11:00 01/02/19 12:20 Nacl 0.9% 1000 Ml IV 50 mls/hr DIRECT SANCHEZ Administration Metoprolol Tartrate 5 mg 12/27/18 18:55 12/29/18 05:41 Lopressor IV 5 mg Q5MIN PRN Administration increased heart rate Metoprolol Tartrate 100 mg 12/31/18 22:00 01/04/19 10:25 Lopressor PO 100 mg BID SANCHEZ Administration Ondansetron HCl 4 mg 12/26/18 21:40 Zofran IV Q8H PRN Nausea And Vomiting Polyethylene Glycol 17 gm 12/27/18 10:00 01/04/19 10:26 Miralax 3350 PO 17 gm QDAY SANCHEZ Administration Risperidone 0.5 mg 12/26/18 22:00 01/03/19 21:52 Risperdal PO 0.5 mg QHS SANCHEZ Administration Risperidone 1 mg 12/27/18 10:00 01/04/19 10:25 Risperdal PO 1 mg QAM SANCHEZ Administration Sertraline HCl 100 mg 12/27/18 10:00 01/04/19 10:25 Zoloft PO 100 mg QDAY SANCHEZ Administration Simple Syrup 15 ml 01/03/19 13:07 Simple Syrup FEEDTUBE PRN PRN Hypoglycemia Simple Syrup 30 ml 01/03/19 13:07 Simple Syrup FEEDTUBE PRN PRN Hypoglycemia Sodium Bicarbonate 325 mg 12/27/18 17:37 Sodium Bicarbonate FEEDTUBE PRN PRN For Clogged Feeding Tube Sodium Bicarbonate 325 mg 01/03/19 13:07 Sodium Bicarbonate FEEDTUBE PRN PRN For Clogged Feeding Tube Sodium Chloride 10 ml 12/26/18 22:00 01/04/19 10:26 Sodium Chloride Flush Syringe 10 Ml IV 10 ml BID SANCHEZ Administration Sodium Chloride 10 ml 12/26/18 21:40 01/03/19 22:02 Sodium Chloride Flush Syringe 10 Ml IV 10 ml PRN PRN Administration LINE FLUSH Sodium Hypochlorite 1 applic 01/01/19 15:31 01/03/19 17:03 Dakin's Half Strength TP 1 applicatio Q12H PRN Administration Wound Care
[2019-01-04] MEDS ORDERED: MAGNESIUM SULFATE 2GM/50ML 2 GM/50 ML BAG IV ONE (11:28)
--- NOTE | 2019-01-04 11:58 | Consultation ---
History of Present Illness - Reason for Consult Consult date: 01/04/19 - History of Present Illness n the ED, temp 103.1, HR 142, R20, BP 99, BP 124/80. WBC 7.5. Hg 9.6. Plat 269. Creat 1.2. UA with 156 wbc, large LE. Blood cultures 12/10/2018 GNR 1 of 4. Urine culture 12/10/2018 10-100K multiple sp. CXR negative. CT chest showed atelectasis versus possible small infiltrate in posterior segment left lower lobe. Review of Systems: General: no fever, chills, no malaise Cutaneous: no rash, pruritus Head: no headaches or injury Eyes: no changes in vision, eye pain, double vision Ears: no ear pain, ear discharge, ringing or hearing loss Nose: no nose bleeding, stuffiness Mouth & throat: no bleeding gums, no horseness, no dental problems, or swollen glands Neck: no pain, node enlargement/lumps, tyroid enlargement or tenderness Respiratory: no cough, wheezing, sputum, hemoptysis, pleuritic chest pain Cardiovascular: no chest pain, leg edema, cyanosis, PHILLIP, orthopnea Musculoskeletal: no edema Gastrointestinal: +nausea, vomiting, no hematemesis, diarrhea, constipation, melena, bright red blood in stools, fecal incontinence, jaundice Genitourinary/Reproductive: + frequent urination, dysuria, hematuria, incontinence Neurogical: no seizures, no headaches, no weakness, no paresthesias, no loss of speech or vision; no memory loss, no vertigo, no tremors, no numbness Psychiatric: stable mood; no excessive anxiety, sadness or moodiness General appearance: Alert in NAD Eyes: anicteric sclerae, moist conjunctivae; no lid-lag; PERRLA HENT: Atraumatic; oropharynx clear with moist mucous membranes and no mucosal ulcerations/no oral thrush; normal hard and soft palate. Normal external ears. Neck: Trachea midline; supple, no thyromegaly or lymphadenopathy Lungs: CTA, with normal respiratory effort and no intercostal retractions CV: RRR no murmur Abdomen: Soft, non-tender; no masses or hepatosplenomegaly Extremities: no edema, cyanosis Skin: Normal temperature, turgor and texture; no rash, ulcers or subcutaneous nodules Psych: Appropriate affect, alert and oriented to person, place and time. Neuro: alert and oriented x 3. Moving all extermities Cultures: Blood cultures 12/10/2018 no growth today Urine culture 12/10/2018 Assessment: 1) Severe Sepsis: Present on admission, manifested by fever, tachycardia, increased lactate. Etiology most likely 2) 3) 4) 5) Recommendations: - follow-up blood cultures, urine culture - Will follow. Bre Machuca MD Infectious Diseases [employer] [facility] ([facility]) M [phone] Past History Past Medical History: other (see HPI) Past Surgical History: Other (AV fistula in the left upper extremity, hemorrhoidectomy) Social history: other (Resides at [facility]) Family history: no significant family history Medications and Allergies Allergies Allergy/AdvReac Type Severity Reaction Status Date / Time haloperidol [From Haldol] AdvReac Unknown Verified 03/13/18 12:10 haloperidol lactate AdvReac Unknown Verified 03/13/18 12:10 [From Haldol] Home Medications Medication Instructions Recorded Confirmed Last Taken Type risperiDONE [RisperDAL] 1 mg PO QAM 03/13/18 12/27/18 Unknown History Sertraline [Zoloft] 100 mg PO QDAY 08/26/18 12/27/18 Unknown History risperiDONE [RisperDAL] 0.5 mg PO HS 08/26/18 12/27/18 Unknown History Polyethylene Glycol 3350 [Miralax 17 gm PO QDAY #30 packet 11/05/18 12/27/18 Unknown Rx 3350] Aspirin EC 81 mg PO DAILY #30 11/19/18 12/27/18 Unknown Rx Docusate Sodium [Colace CAP] 100 mg PO BID #60 11/19/18 12/27/18 Unknown Rx Folic Acid [Folvite] 1 mg PO DAILY #30 tab 11/19/18 12/27/18 Unknown Rx Famotidine [Pepcid] 20 mg PO DAILY tablet 12/08/18 12/27/18 Unknown Rx Gabapentin [Neurontin] 100 mg PO QHS capsule 12/08/18 12/27/18 Unknown Rx Metoprolol [Lopressor TAB] 50 mg PO BID 30 Days tablet 12/08/18 12/27/18 Unknown Rx Sevelamer Carbonate [Renvela] 800 mg PO TIDWM tablet 12/08/18 12/27/18 Unknown Rx hydrALAZINE [Apresoline TAB] 100 mg PO Q8HR #120 tablet 12/08/18 12/27/18 Unknown Rx Acetaminophen [Acetaminophen TAB] 650 mg PO Q12H PRN 12/15/18 12/27/18 Unknown History Amino Acids/Protein Hydrolys 30 ml PO BID 12/15/18 12/27/18 Unknown History [Pro-Stat Sugar Free Liquid] Glucagon,Human Recombinant 1 mg IJ Q15MIN PRN 12/15/18 12/27/18 Unknown History [Glucagon Emergency Kit] Insulin Aspart [NovoLOG 100 See Protocol SQ QWEEK 12/15/18 12/27/18 Unknown History UNITS/ML VIAL] Epoetin Solitario 10,000 Unit [Procrit] 10,000 unit IV UMA PRN vial 12/18/18 12/27/18 Unknown Rx Lispro Insulin [HumaLOG] 0 unit SUB-Q ACHS units 12/18/18 12/27/18 Unknown Rx risperiDONE [RisperDAL] 0.5 mg PO QHS tablet 12/18/18 12/27/18 Unknown Rx Active Meds: Active Medications Acetaminophen (Tylenol) 650 mg PO Q4H PRN PRN Reason: Pain MILD(1-3)/Fever >100.5/HILL Last Admin: 01/02/19 20:31 Dose: 650 mg Documented by: Lipase/Protease/Amylase (Mc Barrientos 10,500 Unit) 1 each FEEDTUBE PRN PRN PRN Reason: For Clogged Feeding Tube Aspirin (Halfprin Ec) 81 mg PO DAILY [facility] Last Admin: 01/04/19 10:25 Dose: 81 mg Documented by: Docusate Sodium (Colace) 100 mg PO BID [facility] Last Admin: 01/04/19 10:25 Dose: 100 mg Documented by: Famotidine (Pepcid) 20 mg PO DAILY [facility] Last Admin: 01/04/19 10:25 Dose: 20 mg Documented by: Folic Acid (Folvite) 1 mg PO DAILY [facility] Last Admin: 01/04/19 10:25 Dose: 1 mg Documented by: Gabapentin (Neurontin) 100 mg PO QHS [facility] Last Admin: 01/03/19 21:51 Dose: 100 mg Documented by: Heparin Sodium (Porcine) (Heparin) 5,000 unit SUB-Q Q12HR [facility] Last Admin: 01/04/19 10:26 Dose: 5,000 unit Documented by: Hydralazine HCl (Apresoline) 100 mg PO Q8HR [facility] Last Admin: 01/04/19 06:46 Dose: 100 mg Documented by: Piperacillin Sod/Tazobactam Sod (Zosyn/Ns 2.25 Gm/50ml) 2.25 gm in 50 mls @ 100 mls/hr IV Q8HR [facility]; Protocol Last Admin: 01/04/19 06:46 Dose: 100 mls/hr Documented by: Sodium Chloride (Nacl 0.9% 1000 Ml) 1,000 mls @ 50 mls/hr IV DIRECT [facility] Last Admin: 01/02/19 12:20 Dose: 50 mls/hr Documented by: Potassium Phosphate 15 mmol/ (Sodium Chloride) 255 mls @ 63.75 mls/hr IV ONCE ONE Stop: 01/04/19 15:59 Magnesium Sulfate (Magnesium Sulfate 2gm/50ml) 2 gm in 50 mls @ 25 mls/hr IV ONCE ONE Stop: 01/04/19 13:27 Last Admin: 01/04/19 11:45 Dose: 25 mls/hr Documented by: Metoprolol Tartrate (Lopressor) 5 mg IV Q5MIN PRN PRN Reason: increased heart rate Last Admin: 12/29/18 05:41 Dose: 5 mg Documented by: Metoprolol Tartrate (Lopressor) 100 mg PO BID [facility] Last Admin: 01/04/19 10:25 Dose: 100 mg Documented by: Ondansetron HCl (Zofran) 4 mg IV Q8H PRN PRN Reason: Nausea And Vomiting Polyethylene Glycol (Miralax 3350) 17 gm PO QDAY [facility] Last Admin: 01/04/19 10:26 Dose: 17 gm Documented by: Risperidone (Risperdal) 0.5 mg PO QHS [facility] Last Admin: 01/03/19 21:52 Dose: 0.5 mg Documented by: Risperidone (Risperdal) 1 mg PO QAM [facility] Last Admin: 01/04/19 10:25 Dose: 1 mg Documented by: Sertraline HCl (Zoloft) 100 mg PO QDAY [facility] Last Admin: 01/04/19 10:25 Dose: 100 mg Documented by: Simple Syrup (Simple Syrup) 15 ml FEEDTUBE PRN PRN PRN Reason: Hypoglycemia Simple Syrup (Simple Syrup) 30 ml FEEDTUBE PRN PRN PRN Reason: Hypoglycemia Sodium Bicarbonate (Sodium Bicarbonate) 325 mg FEEDTUBE PRN PRN PRN Reason: For Clogged Feeding Tube Sodium Bicarbonate (Sodium Bicarbonate) 325 mg FEEDTUBE PRN PRN PRN Reason: For Clogged Feeding Tube Sodium Chloride (Sodium Chloride Flush Syringe 10 Ml) 10 ml IV BID [facility] Last Admin: 01/04/19 10:26 Dose: 10 ml Documented by: Sodium Chloride (Sodium Chloride Flush Syringe 10 Ml) 10 ml IV PRN PRN PRN Reason: LINE FLUSH Last Admin: 01/03/19 22:02 Dose: 10 ml Documented by: Sodium Hypochlorite (Dakin's Half Strength) 1 applic TP Q12H PRN PRN Reason: Wound Care Last Admin: 01/03/19 17:03 Dose: 1 applicatio Documented by: Physical Examination - Constitutional Vitals: Vital Signs Temp Pulse Resp BP Pulse Ox 98.0 F 102 H 18 125/55 90 01/04/19 08:32 01/04/19 08:32 01/04/19 08:32 01/04/19 08:32 01/04/19 08:32 Temperature -Last 24 Hours Temperature 98.0 F Temperature 97.9 F Temperature 98.9 F Temperature 97.8 F Temperature 98.3 F Results - Labs CBC & Chem 7: 01/03/19 17:16 01/03/19 17:09 Labs: Abnormal lab results 01/03/19 01/03/19 01/03/19 Range/Units 16:10 17:09 17:16 WBC 11.2 H (4.5-11.0) K/mm3 RBC 2.92 L (3.65-5.03) M/mm3 Hgb 7.4 L (11.8-15.2) gm/dl Hct 23.6 L (35.5-45.6) % MCV 81 L (84-94) fl MCH 25 L (28-32) pg MCHC 31 L (32-34) % RDW 19.6 H (13.2-15.2) % Plt Count 123 L (140-440) K/mm3 Seg Neuts % (Manual) 96.0 H (40.0-70.0) % Lymphocytes % (Manual) 2.0 L (13.4-35.0) % Seg Neutrophils # Man 10.8 H (1.8-7.7) K/mm3 Lymphocytes # (Manual) 0.2 L (1.2-5.4) K/mm3 Potassium 3.1 L (3.6-5.0) mmol/L Glucose 143 H (75-100) mg/dL POC Glucose 154 H (70-105) Phosphorus 1.20 L (2.5-4.5) mg/dL Magnesium 1.50 L (1.7-2.3) mg/dL
[2019-01-04] MEDS ORDERED: KPHOS 15 MMOL in NACL 0.9% 250ML 250 ML IV ONE (12:00)
--- NOTE | 2019-01-04 15:05 | Gastroenterology Progress Note ---
Assessment and Plan G tube checked and tightened with good appearance. May use the G tube and GI team will sign off, please call back for any questions - Patient Problems (1) Altered mental status Current Visit: Yes Status: Acute Qualifiers: Altered mental status type: unspecified Qualified Code(s): R41.82 - Altered mental status, unspecified (2) Poor appetite Current Visit: Yes Status: Acute Subjective Date of service: 01/04/19 Principal diagnosis: AMS; AFib Interval history: Patient with G tube feeds running without complication Objective - Constitutional Vitals: Temp Pulse Resp BP Pulse Ox 98.0 F 102 H 18 125/55 90 01/04/19 08:32 01/04/19 08:32 01/04/19 08:32 01/04/19 08:32 01/04/19 08:32 - Gastrointestinal General gastrointestinal: Present: other (G tube in place with minimal leakage, the bumper was loose so I tightened it slightly to 7cm. No signs of cellulitis or infection at the insertion site) - Labs CBC & Chem 7: 01/03/19 17:16 01/03/19 17:09 Labs: Laboratory Results - last 24 hr 01/03/19 01/03/19 01/03/19 16:10 17:09 17:16 WBC 11.2 H RBC 2.92 L Hgb 7.4 L Hct 23.6 L MCV 81 L MCH 25 L MCHC 31 L RDW 19.6 H Plt Count 123 L Add Manual Diff Complete Total Counted 100 Seg Neutrophils % Process Supervisor Seg Neuts % (Manual) 96.0 H Band Neutrophils % 0 Lymphocytes % (Manual) 2.0 L Reactive Lymphs % (Man) 0 Monocytes % (Manual) 2.0 Eosinophils % (Manual) 0 Basophils % (Manual) 0 Metamyelocytes % 0 Myelocytes % 0 Promyelocytes % 0 Blast Cells % 0 Nucleated RBC % Not Reportable Seg Neutrophils # Man 10.8 H Band Neutrophils # 0.0 Lymphocytes # (Manual) 0.2 L Abs React Lymphs (Man) 0.0 Monocytes # (Manual) 0.2 Eosinophils # (Manual) 0.0 Basophils # (Manual) 0.0 Metamyelocytes # 0.0 Myelocytes # 0.0 Promyelocytes # 0.0 Blast Cells # 0.0 WBC Morphology Not Reportable Hypersegmented Neuts Not Reportable Hyposegmented Neuts Not Reportable Hypogranular Neuts Not Reportable Smudge Cells Not Reportable Toxic Granulation Not Reportable Toxic Vacuolation Not Reportable Dohle Bodies Not Reportable Pelger-Huet Anomaly Not Reportable Tramaine Rods Not Reportable Platelet Estimate Consistent w auto Clumped Platelets Not Reportable Plt Clumps, EDTA Not Reportable Large Platelets Not Reportable Giant Platelets Not Reportable Platelet Satelliting Not Reportable Plt Morphology Comment Not Reportable RBC Morphology Not Reportable Dimorphic RBCs Not Reportable Polychromasia Not Reportable Hypochromasia 1+ Poikilocytosis Few Anisocytosis 1+ Microcytosis Not Reportable Macrocytosis Not Reportable Spherocytes Not Reportable Pappenheimer Bodies Not Reportable Sickle Cells Not Reportable Target Cells Few Tear Drop Cells Not Reportable Ovalocytes Few Helmet Cells Not Reportable Zhou-[place] Bodies Not Reportable [place] Rings Not Reportable Hebert Cells Not Reportable Bite Cells Not Reportable Crenated Cell Not Reportable Elliptocytes Not Reportable Acanthocytes (Spur) Not Reportable Rouleaux Not Reportable Hemoglobin C Crystals Not Reportable Schistocytes Not Reportable Malaria parasites Not Reportable Jose Juan Bodies Not Reportable Hem Pathologist Commnt No Sodium 139 Potassium 3.1 L Chloride 101.0 Carbon Dioxide 27 Anion Gap 14 BUN 11 Creatinine 1.5 Estimated GFR 57 BUN/Creatinine Ratio 7 Glucose 143 H POC Glucose 154 H Calcium 9.2 Phosphorus 1.20 L Magnesium 1.50 L 01/04/19 12:55 WBC RBC Hgb Hct MCV MCH MCHC RDW Plt Count Add Manual Diff Total Counted Seg Neutrophils % Seg Neuts % (Manual) Band Neutrophils % Lymphocytes % (Manual) Reactive Lymphs % (Man) Monocytes % (Manual) Eosinophils % (Manual) Basophils % (Manual) Metamyelocytes % Myelocytes % Promyelocytes % Blast Cells % Nucleated RBC % Seg Neutrophils # Man Band Neutrophils # Lymphocytes # (Manual) Abs React Lymphs (Man) Monocytes # (Manual) Eosinophils # (Manual) Basophils # (Manual) Metamyelocytes # Myelocytes # Promyelocytes # Blast Cells # WBC Morphology Hypersegmented Neuts Hyposegmented Neuts Hypogranular Neuts Smudge Cells Toxic Granulation Toxic Vacuolation Dohle Bodies Pelger-Huet Anomaly Tramaine Rods Platelet Estimate Clumped Platelets Plt Clumps, EDTA Large Platelets Giant Platelets Platelet Satelliting Plt Morphology Comment RBC Morphology Dimorphic RBCs Polychromasia Hypochromasia Poikilocytosis Anisocytosis Microcytosis Macrocytosis Spherocytes Pappenheimer Bodies Sickle Cells Target Cells Tear Drop Cells Ovalocytes Helmet Cells Zhou-[place] Bodies [place] Rings [place] Cells Bite Cells Crenated Cell Elliptocytes Acanthocytes (Spur) Rouleaux Hemoglobin C Crystals Schistocytes Malaria parasites Jose Juan Bodies Hem Pathologist Commnt Sodium Potassium Chloride Carbon Dioxide Anion Gap BUN Creatinine Estimated GFR BUN/Creatinine Ratio Glucose POC Glucose 179 H Calcium Phosphorus Magnesium
[2019-01-04] MEDS: TYLENOL PO PRN (18:36)
[2019-01-04] MEDS: NEURONTIN PO SCH (23:13)
[2019-01-05] MEDS: TYLENOL PO PRN (05:50)
[2019-01-05] MEDS: APRESOLINE PO SCH ×3 (05:59→22:02)
[2019-01-05] MEDS: ZOSYN/NS 2.25 GM/50ML 2.25 GM/50 ML BAG IV SCH (05:59)
[2019-01-05 06:27] LABS: Calcium 9.5 mg/dL (8.4-10.2)
[2019-01-05] MEDS: PERCOCET 5/325 PO PRN (08:51)
[2019-01-05] MEDS: ZOLOFT PO SCH (09:04)
[2019-01-05] MEDS: LOPRESSOR PO SCH ×2 (09:04→22:03)
[2019-01-05] MEDS: RisperDAL PO SCH ×2 (09:05→22:02)
[2019-01-05] MEDS: PEPCID PO SCH (09:05)
[2019-01-05] MEDS: MIRALAX 3350 PO SCH (09:05)
[2019-01-05] MEDS: HALFPRIN EC PO SCH (09:06)
[2019-01-05] MEDS: COLACE PO SCH ×2 (09:06→22:03)
[2019-01-05] MEDS: FOLVITE PO SCH (09:06)
[2019-01-05] MEDS: HEPARIN SUB-Q SCH ×2 (09:06→22:02)
--- NOTE | 2019-01-05 11:02 | Progress Note ---
Assessment and Plan Impression * End-stage renal disease on maintenance hemodialysis * Altered mental status * Sacral decubitus * Hypokalemia * Failure to thrive * Hypophosphatemia * Malnutrition * Anemia secondary to ESRD * Hypomagnesemia Recommendations * Continue dialysis on TTS schedule for now * Use higher K bath for dialysis * Replace potassium, phosphorus and magnesium * Antibiotic therapy and local wound care as per primary team * Avoid nephrotoxins * Epogen with dialysis * Adjust diet and meds were ESRD state Subjective Date of service: 01/05/19 Principal diagnosis: AMS; AFib Interval history: resting in bed Objective - Exam Narrative Exam: General appearance: chronically ill, frail EENT: PERRL, mucous membranes moist Neck: no JVD, no thyromegaly, no carotid bruit, supple, other (IJ PermCath in place) Respiratory: Present: Clear to Ascultation Cardiology: regular, normal heart rate, S1S2, no murmurs Gastrointestinal: normal, normoactive bowel sounds, other (PEG tube in place) - Vital Signs Vital signs: Vital Signs - 12hr 01/04/19 01/05/19 01/05/19 23:41 04:37 08:07 Temperature 97.7 F 97.7 F Pulse Rate 102 H 94 H 102 H Respiratory 20 20 Rate Blood Pressure 139/75 140/71 O2 Sat by Pulse 100 100 Oximetry 01/05/19 08:48 Temperature 98.0 F Pulse Rate 97 H Respiratory 18 Rate Blood Pressure 146/67 O2 Sat by Pulse 91 Oximetry - Lab 01/03/19 17:16 01/05/19 04:56 Most recent lab results Calcium 9.5 mg/dL (8.4-10.2) 01/05/19 04:56 Phosphorus 2.90 mg/dL (2.5-4.5) D 01/05/19 04:56 Magnesium 2.00 mg/dL (1.7-2.3) 01/05/19 04:56 Medications & Allergies - Medications Allergies/Adverse Reactions: Allergies haloperidol [From Haldol] Adverse Reaction (Verified 03/13/18 12:10) Unknown haloperidol lactate [From Haldol] Adverse Reaction (Verified 03/13/18 12:10) Unknown Home Medications: Home Medications Medication Instructions Recorded Confirmed Last Taken Type risperiDONE [RisperDAL] 1 mg PO QAM 03/13/18 12/27/18 Unknown History Sertraline [Zoloft] 100 mg PO QDAY 08/26/18 12/27/18 Unknown History risperiDONE [RisperDAL] 0.5 mg PO HS 08/26/18 12/27/18 Unknown History Polyethylene Glycol 3350 [Miralax 17 gm PO QDAY #30 packet 11/05/18 12/27/18 Unknown Rx 3350] Aspirin EC 81 mg PO DAILY #30 11/19/18 12/27/18 Unknown Rx Docusate Sodium [Colace CAP] 100 mg PO BID #60 11/19/18 12/27/18 Unknown Rx Folic Acid [Folvite] 1 mg PO DAILY #30 tab 11/19/18 12/27/18 Unknown Rx Famotidine [Pepcid] 20 mg PO DAILY tablet 12/08/18 12/27/18 Unknown Rx Gabapentin [Neurontin] 100 mg PO QHS capsule 12/08/18 12/27/18 Unknown Rx Metoprolol [Lopressor TAB] 50 mg PO BID 30 Days tablet 12/08/18 12/27/18 Unknown Rx Sevelamer Carbonate [Renvela] 800 mg PO TIDWM tablet 12/08/18 12/27/18 Unknown Rx hydrALAZINE [Apresoline TAB] 100 mg PO Q8HR #120 tablet 12/08/18 12/27/18 Unknown Rx Acetaminophen [Acetaminophen TAB] 650 mg PO Q12H PRN 12/15/18 12/27/18 Unknown History Amino Acids/Protein Hydrolys 30 ml PO BID 12/15/18 12/27/18 Unknown History [Pro-Stat Sugar Free Liquid] Glucagon,Human Recombinant 1 mg IJ Q15MIN PRN 12/15/18 12/27/18 Unknown History [Glucagon Emergency Kit] Insulin Aspart [NovoLOG 100 See Protocol SQ QWEEK 12/15/18 12/27/18 Unknown History UNITS/ML VIAL] Epoetin Solitario 10,000 Unit [Procrit] 10,000 unit IV UMA PRN vial 12/18/18 12/27/18 Unknown Rx Lispro Insulin [HumaLOG] 0 unit SUB-Q ACHS units 12/18/18 12/27/18 Unknown Rx risperiDONE [RisperDAL] 0.5 mg PO QHS tablet 12/18/18 12/27/18 Unknown Rx Active Medications: Generic Name Dose Route Start Last Admin Trade Name Freq PRN Reason Stop Dose Admin Acetaminophen 650 mg 12/26/18 21:40 01/05/19 05:50 Tylenol PO 650 mg Q4H PRN Administration Pain MILD(1-3)/Fever >100.5/HILL Lipase/Protease/Amylase 1 each 01/03/19 13:07 Pancrejewel Barrientos 10,500 Unit FEEDTUBE PRN PRN For Clogged Feeding Tube Aspirin 81 mg 12/27/18 10:00 01/05/19 09:06 Halfprin Ec PO 81 mg DAILY [facility]Z Administration Docusate Sodium 100 mg 12/26/18 22:00 01/05/19 09:06 Colace PO 100 mg BID SANCHEZ Administration Famotidine 20 mg 12/27/18 10:00 01/05/19 09:05 Pepcid PO 20 mg DAILY SANC[facility]Z Administration Folic Acid 1 mg 12/27/18 10:00 01/05/19 09:06 Folvite PO 1 mg DAILY [facility]Z Administration Gabapentin 100 mg 12/26/18 22:00 01/04/19 23:13 Neurontin PO 100 mg QHS [facility]Z Administration Heparin Sodium (Porcine) 5,000 unit 12/26/18 22:00 01/05/19 09:06 Heparin SUB-Q 5,000 unit Q12HR [facility]Z Administration Hydralazine HCl 100 mg 12/26/18 22:00 01/05/19 05:59 Apresoline PO 100 mg Q8HR [facility]Z Administration Sodium Chloride 1,000 mls @ 50 mls/hr 01/02/19 11:00 01/02/19 12:20 Nacl 0.9% 1000 Ml IV 50 mls/hr DIRECT [facility]Z Administration Meropenem 1,000 mg/ Sodium 100 mls @ 100 mls/hr 01/05/19 11:00 Chloride IV Q24HR [facility] Metoprolol Tartrate 5 mg 12/27/18 18:55 12/29/18 05:41 Lopressor IV 5 mg Q5MIN PRN Administration increased heart rate Metoprolol Tartrate 100 mg 12/31/18 22:00 01/05/19 09:04 Lopressor PO 100 mg BID [facility]Z Administration Ondansetron HCl 4 mg 12/26/18 21:40 Zofran IV Q8H PRN Nausea And Vomiting Oxycodone/Acetaminophen 1 tab 01/05/19 08:30 01/05/19 08:51 Percocet 5/325 PO 1 tab Q6H PRN Administration Pain, Moderate (4-6) Polyethylene Glycol 17 gm 12/27/18 10:00 01/05/19 09:05 Miralax 3350 PO Not Given QDAY [facility]Z Risperidone 0.5 mg 12/26/18 22:00 01/04/19 23:13 Risperdal PO 0.5 mg QHS [facility]Z Administration Risperidone 1 mg 12/27/18 10:00 01/05/19 09:05 Risperdal PO 1 mg QAM S[facility]Z Administration Sertraline HCl 100 mg 12/27/18 10:00 01/05/19 09:04 Zoloft PO 100 mg QDAY S[facility]HEZ Administration Simple Syrup 15 ml 01/03/19 13:07 Simple Syrup FEEDTUBE PRN PRN Hypoglycemia Simple Syrup 30 ml 01/03/19 13:07 Simple Syrup FEEDTUBE PRN PRN Hypoglycemia Sodium Bicarbonate 325 mg 01/03/19 13:07 Sodium Bicarbonate FEEDTUBE PRN PRN For Clogged Feeding Tube Sodium Chloride 10 ml 12/26/18 22:00 01/04/19 23:14 Sodium Chloride Flush Syringe 10 Ml IV 10 ml BID S[facility]Z Administration Sodium Chloride 10 ml 12/26/18 21:40 01/03/19 22:02 Sodium Chloride Flush Syringe 10 Ml IV 10 ml PRN PRN Administration LINE FLUSH Sodium Hypochlorite 1 applic 01/01/19 15:31 01/03/19 17:03 Dakin's Half Strength TP 1 applicatio Q12H PRN Administration Wound Care
[2019-01-05] MEDS: SODIUM CHLORIDE FLUSH SYRINGE 10 ML IV SCH ×2 (13:32→22:03)
[2019-01-05] MEDS: MERREM 1,000 MG in NACL 0.9% 100 ML IV SCH (14:26)
--- NOTE | 2019-01-05 15:47 | Progress Note ---
Assessment and Plan Assessment and plan: 63-year-old -[place] male with multiple medical problems sent from [facility] for altered sensorium and decreased responsiveness. Patient end-stage renal disease hypertension insulin-dependent diabetes COPD and CHF. . Decreased responsive and not eating at all for 2 days 36 hours. Patient has failure to thrive, altered mentation and weight loss of 20 pounds since 12/08/2018. Severe Sepsis:/ Unstagable infected necrotic sacral decubitus: s/p OR on 01/01/2019 for open excisional debridement of necrotic and infected sacral wound noted a large amount of necrotic tissue debrided and two abscess cavities at the caudad portion of the wound with a copious amount of purulent drainage which was drained. Wound cultures 01/02/2019 ESBL Kleb, MDR Ecoli and E raffinosus resistant to penicillin. 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 Head exam is unremarkable., opens eyes, says Fede, does not seem to understand his medical condition No scleral icterus . Neck is without jugular venous distension, thyromegaly, or carotid bruits. Lungs are clear to auscultation. Cardiac exam reveals regular rate and Rhythm. First and second heart sounds nor mal. No murmurs, rubs or gallops. Abdominal exam reveals normal bowel sounds, no masses, no organomegaly and no aortic enlargement. Extremities are nonedematous and both femoral and pedal pulses are normal. 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, only says Fede, unable to have complex conversation - Constitutional Vitals: Temp Pulse Resp BP Pulse Ox 98.0 F 97 H 18 146/67 91 01/05/19 08:48 01/05/19 08:48 01/05/19 08:48 01/05/19 08:48 01/05/19 08:48 General appearance: Present: no acute distress, cachectic, disheveled Results - Labs CBC & Chem 7: 01/07/19 00:45 01/07/19 11:16 Labs: Laboratory Last Values WBC 11.2 K/mm3 (4.5-11.0) H 01/03/19 17:16 RBC 2.92 M/mm3 (3.65-5.03) L 01/03/19 17:16 Hgb 7.4 gm/dl (11.8-15.2) L 01/03/19 17:16 Hct 23.6 % (35.5-45.6) L 01/03/19 17:16 MCV 81 fl (84-94) L 01/03/19 17:16 MCH 25 pg (28-32) L 01/03/19 17:16 MCHC 31 % (32-34) L 01/03/19 17:16 RDW 19.6 % (13.2-15.2) H 01/03/19 17:16 Plt Count 123 K/mm3 (140-440) L 01/03/19 17:16 Lymph % (Auto) Auto Dismantler 12/27/18 07:04 [place] % (Auto) Auto Dismantler 12/27/18 07:04 Eos % (Auto) Auto Dismantler 12/27/18 07:04 Baso % (Auto) Auto Dismantler 12/27/18 07:04 Lymph # Auto Dismantler 12/27/18 07:04 [place] # Auto Dismantler 12/27/18 07:04 Eos # Auto Dismantler 12/27/18 07:04 Baso # Auto Dismantler 12/27/18 07:04 Add Manual Diff Complete 01/03/19 17:16 Total Counted 100 01/03/19 17:16 Seg Neutrophils % Auto Dismantler 01/03/19 17:16 Seg Neuts % (Manual) 96.0 % (40.0-70.0) H 01/03/19 17:16 0 % 01/03/19 17:16 2.0 % (13.4-35.0) L 01/03/19 17:16 Reactive Lymphs % (Man) 0 % 01/03/19 17:16 2.0 % (0.0-7.3) 01/03/19 17:16 0 % (0.0-4.3) 01/03/19 17:16 0 % (0.0-1.8) 01/03/19 17:16 0 % 01/03/19 17:16 0 % 01/03/19 17:16 0 % 01/03/19 17:16 0 % 01/03/19 17:16 Nucleated RBC % Not Reportable 01/03/19 17:16 Seg Neutrophils # Auto Dismantler 12/27/18 07:04 Seg Neutrophils # Man 10.8 K/mm3 (1.8-7.7) H 01/03/19 17:16 Band Neutrophils # 0.0 K/mm3 01/03/19 17:16 0.2 K/mm3 (1.2-5.4) L 01/03/19 17:16 Abs React Lymphs (Man) 0.0 K/mm3 01/03/19 17:16 0.2 K/mm3 (0.0-0.8) 01/03/19 17:16 0.0 K/mm3 (0.0-0.4) 01/03/19 17:16 0.0 K/mm3 (0.0-0.1) 01/03/19 17:16 0.0 K/mm3 01/03/19 17:16 0.0 K/mm3 01/03/19 17:16 0.0 K/mm3 01/03/19 17:16 Blast Cells # 0.0 K/mm3 01/03/19 17:16 WBC Morphology Not Reportable 01/03/19 17:16 Hypersegmented Neuts Not Reportable 01/03/19 17:16 Hyposegmented Neuts Not Reportable 01/03/19 17:16 Hypogranular Neuts Not Reportable 01/03/19 17:16 Not Reportable 01/03/19 17:16 Not Reportable 01/03/19 17:16 Not Reportable 01/03/19 17:16 Not Reportable 01/03/19 17:16 Not Reportable 01/03/19 17:16 Not Reportable 01/03/19 17:16 Consistent w auto 01/03/19 17:16 Not Reportable 01/03/19 17:16 Plt Clumps, EDTA Not Reportable 01/03/19 17:16 Not Reportable 01/03/19 17:16 Not Reportable 01/03/19 17:16 Not Reportable 01/03/19 17:16 Plt Morphology Comment Not Reportable 01/03/19 17:16 RBC Morphology Not Reportable 01/03/19 17:16 Dimorphic RBCs Not Reportable 01/03/19 17:16 Not Reportable 01/03/19 17:16 1+ 01/03/19 17:16 Few 01/03/19 17:16 1+ 01/03/19 17:16 Not Reportable 01/03/19 17:16 Not Reportable 01/03/19 17:16 Not Reportable 01/03/19 17:16 Not Reportable 01/03/19 17:16 Not Reportable 01/03/19 17:16 Few 01/03/19 17:16 Not Reportable 01/03/19 17:16 Few 01/03/19 17:16 Not Reportable 01/03/19 17:16 Not Reportable 01/03/19 17:16 Not Reportable 01/03/19 17:16 Not Reportable 01/03/19 17:16 Not Reportable 01/03/19 17:16 Not Reportable 01/03/19 17:16 Not Reportable 01/03/19 17:16 Acanthocytes (Spur) Not Reportable 01/03/19 17:16 Rouleaux Not Reportable 01/03/19 17:16 Not Reportable 01/03/19 17:16 Not Reportable 01/03/19 17:16 Not Reportable 01/03/19 17:16 Not Reportable 01/03/19 17:16 Hem Pathologist Commnt No 01/03/19 17:16 PT 18.0 Sec. (12.2-14.9) H 01/02/19 05:39 INR 1.39 (0.87-1.13) H 01/02/19 05:39 Sodium 140 mmol/L (137-145) 01/05/19 04:56 Potassium 3.8 mmol/L (3.6-5.0) D 01/05/19 04:56 Chloride 101.4 mmol/L (98-107) 01/05/19 04:56 Carbon Dioxide 27 mmol/L (22-30) 01/05/19 04:56 15 mmol/L 01/05/19 04:56 BUN 28 mg/dL (9-20) H 01/05/19 04:56 2.7 mg/dL (0.8-1.5) H D 01/05/19 04:56 Estimated GFR 29 ml/min 01/05/19 04:56 10 % 01/05/19 04:56 Glucose 174 mg/dL (75-100) H 01/05/19 04:56 POC Glucose 190 (70-105) H 01/05/19 11:50 < 4.2 % (4-6) 12/26/18 17:12 Lactic Acid 1.10 mmol/L (0.7-2.0) 12/27/18 07:04 Calcium 9.5 mg/dL (8.4-10.2) 01/05/19 04:56 Phosphorus 2.90 mg/dL (2.5-4.5) D 01/05/19 04:56 Magnesium 2.00 mg/dL (1.7-2.3) 01/05/19 04:56 0.60 mg/dL (0.1-1.2) 01/01/19 17:32 AST 9 units/L (5-40) 01/01/19 17:32 ALT < 5 units/L (7-56) L 01/01/19 17:32 114 units/L (35-129) 01/01/19 17:32 29 units/L (55-170) L 12/26/18 17:12 0.158 ng/mL (0.00-0.029) H* 12/26/18 17:12 5.9 g/dL (6.3-8.2) L 01/01/19 17:32 2.2 g/dL (3.9-5) L 01/01/19 17:32 0.6 % 01/01/19 17:32 Triglycerides 75 mg/dL (2-149) 12/26/18 17:12 Cholesterol 109 mg/dL (50-199) 12/26/18 17:12 43 mg/dL (50-130) L 12/26/18 17:12 41 mg/dL (40-59) 12/26/18 17:12 2.65 % 12/26/18 17:12 PTH Intact 178.6 pg/mL (15-65) H 01/01/19 17:32 Random Vancomycin 9.1 ug/mL (0-40.0) 01/02/19 05:39 Active Medications - Current Medications Current Medications: Generic Name Dose Route Start Last Admin Trade Name Freq PRN Reason Stop Dose Admin Acetaminophen 650 mg 12/26/18 21:40 01/05/19 05:50 Tylenol PO 650 mg Q4H PRN Administration Pain MILD(1-3)/Fever >100.5/HILL Lipase/Protease/Amylase 1 each 01/03/19 13:[address] 10,500 Unit FEEDTUBE PRN PRN For Clogged Feeding Tube Aspirin 81 mg 12/27/18 10:00 01/05/19 09:06 Halfprin Ec PO 81 mg DAILY SANCHEZ Administration Docusate Sodium 100 mg 12/26/18 22:00 01/05/19 09:06 Colace PO 100 mg BID SANCHEZ Administration Epoetin Solitario 20,000 unit 01/05/19 11:03 Procrit IV UMA PRN hemodialysis Famotidine 20 mg 12/27/18 10:00 01/05/19 09:05 Pepcid PO 20 mg DAILY SANCHEZ Administration Folic Acid 1 mg 12/27/18 10:00 01/05/19 09:06 Folvite PO 1 mg DAILY SANCHEZ Administration Gabapentin 100 mg 12/26/18 22:00 01/04/19 23:13 Neurontin PO 100 mg QHS SANCHEZ Administration Heparin Sodium (Porcine) 5,000 unit 12/26/18 22:00 01/05/19 09:06 Heparin SUB-Q 5,000 unit Q12HR SANCHEZ Administration Hydralazine HCl 100 mg 12/26/18 22:00 01/05/19 13:32 Apresoline PO 100 mg Q8HR SANCHEZ Administration Meropenem 1,000 mg/ Sodium 100 mls @ 100 mls/hr 01/05/19 11:00 01/05/19 14:26 Chloride IV 100 mls/hr Q24HR SANCHEZ Administration Metoprolol Tartrate 5 mg 12/27/18 18:55 12/29/18 05:41 Lopressor IV 5 mg Q5MIN PRN Administration increased heart rate Metoprolol Tartrate 100 mg 12/31/18 22:00 01/05/19 09:04 Lopressor PO 100 mg BID SANCHEZ Administration Ondansetron HCl 4 mg 12/26/18 21:40 Zofran IV Q8H PRN Nausea And Vomiting Oxycodone/Acetaminophen 1 tab 01/05/19 08:30 01/05/19 08:51 Percocet 5/325 PO 1 tab Q6H PRN Administration Pain, Moderate (4-6) Polyethylene Glycol 17 gm 12/27/18 10:00 01/05/19 09:05 Miralax 3350 PO Not Given QDAY SANCHEZ Risperidone 0.5 mg 12/26/18 22:00 01/04/19 23:13 Risperdal PO 0.5 mg QHS SANCHEZ Administration Risperidone 1 mg 12/27/18 10:00 01/05/19 09:05 Risperdal PO 1 mg QAM SANCHEZ Administration Sertraline HCl 100 mg 12/27/18 10:00 01/05/19 09:04 Zoloft PO 100 mg QDAY SANCHEZ Administration Simple Syrup 15 ml 01/03/19 13:07 Simple Syrup FEEDTUBE PRN PRN Hypoglycemia Simple Syrup 30 ml 01/03/19 13:07 Simple Syrup FEEDTUBE PRN PRN Hypoglycemia Sodium Bicarbonate 325 mg 01/03/19 13:07 Sodium Bicarbonate FEEDTUBE PRN PRN For Clogged Feeding Tube Sodium Chloride 10 ml 12/26/18 22:00 01/05/19 13:32 Sodium Chloride Flush Syringe 10 Ml IV 10 ml BID SANCHEZ Administration Sodium Chloride 10 ml 12/26/18 21:40 01/03/19 22:02 Sodium Chloride Flush Syringe 10 Ml IV 10 ml PRN PRN Administration LINE FLUSH Sodium Hypochlorite 1 applic 01/01/19 15:31 01/03/19 17:03 Dakin's Half Strength TP 1 applicatio Q12H PRN Administration Wound Care Nutrition/Malnutrition Assess - Dietary Evaluation Nutrition/Malnutrition Findings: Nutrition Notes Start: 12/27/18 17:15 Freq: Status: Active Protocol: Document 01/03/19 13:00 EVELINE (Rec: 01/03/19 13:07 EVELINE [id number]) Nutrition Notes Initial or Follow up Brief Note Current Diet TF - Glucerna 1.2 at 50ml/hr Height 5 ft 7 in Weight 84.1 kg [place] Body Weight (kg) 67.27 BMI 29.0 Subjective/Other Information Pt at HD at time of visit (12: 31). Per RN, TF was infusing at 10ml/hr; pt tolerating TF so far. Is patient on ventilator? No Is Patient Ambulatory and/or Out of Bed No REE-([facility]-confined to bed) [phone] Calculation Used for Recommendations [facility] Additional Notes Pro needs 1.2-1.4g/k- 118g/day Fluid needs 1-1.5L/day Nutrition Intervention Nutrition Support: Increase TF goal rate to Glucerna 1.2 at 65ml/hr with 100ml water flush q4h. Kcal 1,872 Protein (gm) 94 Carbohydrates (gm) 179 Fat (gm) 94 Fluid (mL) 1,256 Fiber (gm) 25 Goal #1 TF tolerance Goal #2 TF at goal rate to meet 90-100 % energy and pro needs Goal #3 Wound healing Follow-Up By: 01/05/19 Additional Comments F/U: TF goal rate/tolerance
--- NOTE | 2019-01-05 16:46 | Consultation ---
History of Present Illness - Reason for Consult Consult date: 01/05/19 sacal decubitus infection Requesting physician: LENO LAWTON - History of Present Illness 63 y/o male with history of ESRD on HD, HTN, CAD S/P CABG, CVA, DM, Atrial Fib, Anemia, Hyperparathyroidism, Hypocalcemia, schizophrenia; well known to ID service from previous admission, readmitted on 12/26/2018 due to altered sensorium and decreased responsiveness for 48 hour and decreased PO intake for 2 weeks. In the ED, temp 100.1, HR 125, R17, BP88/44. WBC 8.3. Hg 10.1. Plat 124. Creat 5. LA 2.2. Blood cultures 12/26/2018 no growth today. Blood cultures 01/01/2019 no growth today. CXR pulpmnary edema, CT head chronic changes and ?mastoiditis. He was found to have an unstagable necrotic sacral decubitus. Taken to the OR on 01/01/2019 for open excisional debridement of necrotic and infected sacral wound noted a large amount of necrotic tissue debrided and two abscess cavities at the caudad portion of the wound with a copious amount of purulent drainage which was drained. Wound cultures 01/02/2019 ESBL Kleb, MDR Ecoli and E raffinosus resistant to penicillin. ID consulted for management of decubitus. Review of Systems: unable to obtain Past History Past Medical History: other (see HPI) Past Surgical History: Other (AV fistula in the left upper extremity, hemorrhoidectomy) Social history: other (Resides at [facility]) Family history: no significant family history Medications and Allergies Allergies Allergy/AdvReac Type Severity Reaction Status Date / Time haloperidol [From Haldol] AdvReac Unknown Verified 03/13/18 12:10 haloperidol lactate AdvReac Unknown Verified 03/13/18 12:10 [From Haldol] Home Medications Medication Instructions Recorded Confirmed Last Taken Type risperiDONE [RisperDAL] 1 mg PO QAM 03/13/18 12/27/18 Unknown History Sertraline [Zoloft] 100 mg PO QDAY 08/26/18 12/27/18 Unknown History risperiDONE [RisperDAL] 0.5 mg PO HS 08/26/18 12/27/18 Unknown History Polyethylene Glycol 3350 [Miralax 17 gm PO QDAY #30 packet 11/05/18 12/27/18 Unknown Rx 3350] Aspirin EC 81 mg PO DAILY #30 11/19/18 12/27/18 Unknown Rx Docusate Sodium [Colace CAP] 100 mg PO BID #60 11/19/18 12/27/18 Unknown Rx Folic Acid [Folvite] 1 mg PO DAILY #30 tab 11/19/18 12/27/18 Unknown Rx Famotidine [Pepcid] 20 mg PO DAILY tablet 12/08/18 12/27/18 Unknown Rx Gabapentin [Neurontin] 100 mg PO QHS capsule 12/08/18 12/27/18 Unknown Rx Metoprolol [Lopressor TAB] 50 mg PO BID 30 Days tablet 12/08/18 12/27/18 Unknown Rx Sevelamer Carbonate [Renvela] 800 mg PO TIDWM tablet 12/08/18 12/27/18 Unknown Rx hydrALAZINE [Apresoline TAB] 100 mg PO Q8HR #120 tablet 12/08/18 12/27/18 Unknown Rx Acetaminophen [Acetaminophen TAB] 650 mg PO Q12H PRN 12/15/18 12/27/18 Unknown History Amino Acids/Protein Hydrolys 30 ml PO BID 12/15/18 12/27/18 Unknown History [Pro-Stat Sugar Free Liquid] Glucagon,Human Recombinant 1 mg IJ Q15MIN PRN 12/15/18 12/27/18 Unknown History [Glucagon Emergency Kit] Insulin Aspart [NovoLOG 100 See Protocol SQ QWEEK 12/15/18 12/27/18 Unknown History UNITS/ML VIAL] Epoetin Solitario 10,000 Unit [Procrit] 10,000 unit IV UMA PRN vial 12/18/18 12/27/18 Unknown Rx Lispro Insulin [HumaLOG] 0 unit SUB-Q ACHS units 12/18/18 12/27/18 Unknown Rx risperiDONE [RisperDAL] 0.5 mg PO QHS tablet 12/18/18 12/27/18 Unknown Rx Active Meds: Active Medications Acetaminophen (Tylenol) 650 mg PO Q4H PRN PRN Reason: Pain MILD(1-3)/Fever >100.5/HILL Last Admin: 01/05/19 05:50 Dose: 650 mg Documented by: Lipase/Protease/Amylase ([place] 10,500 Unit) 1 each FEEDTUBE PRN PRN PRN Reason: For Clogged Feeding Tube Aspirin (Halfprin Ec) 81 mg PO DAILY [facility] Last Admin: 01/05/19 09:06 Dose: 81 mg Documented by: Docusate Sodium (Colace) 100 mg PO BID [facility] Last Admin: 01/05/19 09:06 Dose: 100 mg Documented by: Epoetin Solitario (Procrit) 20,000 unit IV UMA PRN PRN Reason: hemodialysis Famotidine (Pepcid) 20 mg PO DAILY [facility] Last Admin: 01/05/19 09:05 Dose: 20 mg Documented by: Folic Acid (Folvite) 1 mg PO DAILY [facility] Last Admin: 01/05/19 09:06 Dose: 1 mg Documented by: Gabapentin (Neurontin) 100 mg PO QHS [facility] Last Admin: 01/04/19 23:13 Dose: 100 mg Documented by: Heparin Sodium (Porcine) (Heparin) 5,000 unit SUB-Q Q12HR [facility] Last Admin: 01/05/19 09:06 Dose: 5,000 unit Documented by: Hydralazine HCl (Apresoline) 100 mg PO Q8HR [facility] Last Admin: 01/05/19 13:32 Dose: 100 mg Documented by: Meropenem 1,000 mg/ Sodium (Chloride) 100 mls @ 100 mls/hr IV Q24HR [facility] Last Admin: 01/05/19 14:26 Dose: 100 mls/hr Documented by: Metoprolol Tartrate (Lopressor) 5 mg IV Q5MIN PRN PRN Reason: increased heart rate Last Admin: 12/29/18 05:41 Dose: 5 mg Documented by: Metoprolol Tartrate (Lopressor) 100 mg PO BID [facility] Last Admin: 01/05/19 09:04 Dose: 100 mg Documented by: Ondansetron HCl (Zofran) 4 mg IV Q8H PRN PRN Reason: Nausea And Vomiting Oxycodone/Acetaminophen (Percocet 5/325) 1 tab PO Q6H PRN PRN Reason: Pain, Moderate (4-6) Last Admin: 01/05/19 08:51 Dose: 1 tab Documented by: Polyethylene Glycol (Miralax 3350) 17 gm PO QDAY [facility] Last Admin: 01/05/19 09:05 Dose: Not Given Documented by: Risperidone (Risperdal) 0.5 mg PO QHS [facility] Last Admin: 01/04/19 23:13 Dose: 0.5 mg Documented by: Risperidone (Risperdal) 1 mg PO QAM [facility] Last Admin: 01/05/19 09:05 Dose: 1 mg Documented by: Sertraline HCl (Zoloft) 100 mg PO QDAY [facility] Last Admin: 01/05/19 09:04 Dose: 100 mg Documented by: Simple Syrup (Simple Syrup) 15 ml FEEDTUBE PRN PRN PRN Reason: Hypoglycemia Simple Syrup (Simple Syrup) 30 ml FEEDTUBE PRN PRN PRN Reason: Hypoglycemia Sodium Bicarbonate (Sodium Bicarbonate) 325 mg FEEDTUBE PRN PRN PRN Reason: For Clogged Feeding Tube Sodium Chloride (Sodium Chloride Flush Syringe 10 Ml) 10 ml IV BID [facility] Last Admin: 01/05/19 13:32 Dose: 10 ml Documented by: Sodium Chloride (Sodium Chloride Flush Syringe 10 Ml) 10 ml IV PRN PRN PRN Reason: LINE FLUSH Last Admin: 01/03/19 22:02 Dose: 10 ml Documented by: Sodium Hypochlorite (Dakin's Half Strength) 1 applic TP Q12H PRN PRN Reason: Wound Care Last Admin: 01/03/19 17:03 Dose: 1 applicatio Documented by: Physical Examination - Physical Exam Narrative exam: General appearance: somnolent in NAD Eyes: left eye enucleation with prosthesis HENT: Atraumatic; oropharynx clear limited Neck: Trachea midline; supple, no thyromegaly or lymphadenopathy Lungs: CTA, with normal respiratory effort and no intercostal retractions CV: RRR no murmur Abdomen: Soft, non-tender; +PEG Extremities: no edema, cyanosis Skin: sacral dec with surgical dressings Psych:non agitated Neuro: somnolent - Constitutional Vitals: Vital Signs Temp Pulse Resp BP Pulse Ox 98.0 F 97 H 18 146/67 91 01/05/19 08:48 01/05/19 08:48 01/05/19 08:48 01/05/19 08:48 01/05/19 08:48 Temperature -Last 24 Hours Temperature 98.0 F Temperature 97.7 F Temperature 97.7 F Temperature 98.0 F Temperature 98.6 F Results - Labs CBC & Chem 7: 01/03/19 17:16 01/05/19 04:56 Labs: Abnormal lab results 01/04/19 01/04/19 01/05/19 Range/Units 17:42 23:49 04:56 BUN 28 H (9-20) mg/dL Creatinine 2.7 H D (0.8-1.5) mg/dL Glucose 174 H (75-100) mg/dL POC Glucose 192 H 164 H (70-105) 01/05/19 01/05/19 Range/Units 05:21 11:50 BUN (9-20) mg/dL Creatinine (0.8-1.5) mg/dL Glucose (75-100) mg/dL POC Glucose 195 H 190 H (70-105) Assessment and Plan Cultures: Blood cultures 12/26/2018 no growth today. Blood cultures 01/01/2019 no growth today. Wound cultures 01/02/2019 ESBL Kleb, MDR Ecoli and E raffinosus resistant to penicillin. Assessment: 63 y/o male with history of ESRD on HD, HTN, CAD S/P CABG, CVA, DM, Atrial Fib, Anemia, Hyperparathyroidism, Hypocalcemia, schizophrenia; well known to ID service from previous admission, readmitted on 12/26/2018 due to altered sensorium and decreased responsiveness for 48 hour and decreased PO intake for 2 weeks. 1) Severe Sepsis: Present on admission, manifested by fever, tachycardia, increased lactate and AMS. Etiology most likely unstagable necrotic sacral decubitus. 2) Unstagable necrotic sacral decubitus: s/p OR on 01/01/2019 for open excisional debridement of necrotic and infected sacral wound noted a large amount of necrotic tissue debrided and two abscess cavities at the caudad portion of the wound with a copious amount of purulent drainage which was drained. Wound cultures 01/02/2019 ESBL Kleb, MDR Ecoli and E raffinosus resistant to penicillin. 3) History of MSSE septicemia + MRSA foot infection. Bone scan POSITIVE for osteomyelitis 4th and 5th MT head. Treated with IV vancomcyin for total of 6 weeks until 05/05/18. 4) History of septic shock from vivi HAP vs aspiration pneumonia treated with cefepime and flagyl for 7 days. 5) Acute on chronic encephalopathy: from infection CT head chronic changes and ?mastoiditis. Recommendations: - stop zosyn - start meropenem renally adjusted - continue vancomycin renally adjusted - duration to be determined - contact isolation Will follow. Bre Machuca MD Infectious Diseases [employer] [facility] [phone]
--- NOTE | 2019-01-05 17:19 | Progress Note ---
Assessment and Plan - Patient Problems (1) Decubitus ulcer of sacral region, unstageable Current Visit: Yes Status: Acute Plan to address problem: Pt. stable. Family has agreed to diverting colostomy. I've asked the hospitalist to consult cardiology for preoperative risk assessment. Once that is completed, I will get consent from the family. I have also contacted GI to see when they would be comfortable with us doing a laparoscopic procedure as they just placed a PEG tube (01/02). Please call with questions. time=15min Subjective Date of service: 01/05/19 Patient Reports: Positive: other (patient unable to communicate) Objective Vital Signs - 12hr 01/05/19 01/05/19 08:07 08:48 Temperature 98.0 F Pulse Rate 102 H 97 H Respiratory 18 Rate Blood Pressure 146/67 O2 Sat by Pulse 91 Oximetry - General physical appearance no distress, no pain, other (not communicating) - Respiratory normal expansion, normal respiratory effort - Abdomen soft, not tender, not distended, not guarding, not rigid, surgical scars (well healed. ), other (PEG in place. ) - Integumentary no rash, no growths, no abnormal pigmentation - Labs 01/03/19 17:16 01/05/19 04:56 Diabetes panel 01/05/19 Range/Units 04:56 Sodium 140 (137-145) mmol/L Potassium 3.8 D (3.6-5.0) mmol/L Chloride 101.4 (98-107) mmol/L Carbon Dioxide 27 (22-30) mmol/L BUN 28 H (9-20) mg/dL Creatinine 2.7 H D (0.8-1.5) mg/dL Glucose 174 H (75-100) mg/dL Calcium 9.5 (8.4-10.2) mg/dL Calcium panel 01/05/19 Range/Units 04:56 Calcium 9.5 (8.4-10.2) mg/dL Phosphorus 2.90 D (2.5-4.5) mg/dL Pituitary panel 01/05/19 Range/Units 04:56 Sodium 140 (137-145) mmol/L Potassium 3.8 D (3.6-5.0) mmol/L Chloride 101.4 (98-107) mmol/L Carbon Dioxide 27 (22-30) mmol/L BUN 28 H (9-20) mg/dL Creatinine 2.7 H D (0.8-1.5) mg/dL Glucose 174 H (75-100) mg/dL Calcium 9.5 (8.4-10.2) mg/dL Adrenal panel 01/05/19 Range/Units 04:56 Sodium 140 (137-145) mmol/L Potassium 3.8 D (3.6-5.0) mmol/L Chloride 101.4 (98-107) mmol/L Carbon Dioxide 27 (22-30) mmol/L BUN 28 H (9-20) mg/dL Creatinine 2.7 H D (0.8-1.5) mg/dL Glucose 174 H (75-100) mg/dL Calcium 9.5 (8.4-10.2) mg/dL
[2019-01-05] MEDS: NEURONTIN PO SCH (22:02)
[2019-01-06] MEDS: APRESOLINE PO SCH ×4 (04:05→22:03)
[2019-01-06] MEDS: PERCOCET 5/325 PO PRN (04:05)
--- NOTE | 2019-01-06 10:23 | Progress Note ---
Assessment and Plan Cultures: Blood cultures 12/26/2018 no growth today. Blood cultures 01/01/2019 no growth today. Wound cultures 01/02/2019 ESBL Kleb, MDR Ecoli and E raffinosus resistant to penicillin. Assessment: 63 y/o male with history of ESRD on HD, HTN, CAD S/P CABG, CVA, DM, Atrial Fib, Anemia, Hyperparathyroidism, Hypocalcemia, schizophrenia; well known to ID service from previous admission, readmitted on 12/26/2018 due to altered sensorium and decreased responsiveness for 48 hour and decreased PO intake for 2 weeks. 1) Severe Sepsis: Improved. No fevers. Etiology most likely unstagable necrotic sacral decubitus. 2) Unstagable necrotic sacral decubitus: s/p OR on 01/01/2019 for open excisional debridement of necrotic and infected sacral wound noted a large amount of necrotic tissue debrided and two abscess cavities at the caudad portion of the wound with a copious amount of purulent drainage which was drained. Wound cultures 01/02/2019 ESBL Kleb, MDR Ecoli and E raffinosus resistant to peni cillin. Surgery plans for diverting colostomy, family has agreed, awaiting cardiology preop evaluation. 3) History of MSSE septicemia + MRSA foot infection. Bone scan POSITIVE for osteomyelitis 4th and 5th MT head. Treated with IV vancomcyin for total of 6 weeks until 05/05/18. 4) History of septic shock from vivi HAP vs aspiration pneumonia treated with cefepime and flagyl for 7 days. 5) Acute on chronic encephalopathy: from infection CT head chronic changes and ?mastoiditis. Recommendations: - continue meropenem 1 gm every 24 hours, D2 - continue vancomycin renally adjusted, D8 - contact isolation -CBC ordered for tomorrow -Anticipate discharge on 6 weeks outpatient antibiotics -PICC line ordered [facility] M: [phone] O:[phone] Subjective Date of service: 01/06/19 Principal diagnosis: AMS; AFib Interval history: Patient seen and examined. Asleep. Not easy to arouse. nonverbal, calm. Objective - Exam Narrative Exam: General appearance: somnolent in NAD Eyes: left eye enucleation with prosthesis HENT: Atraumatic; oropharynx clear limited Neck: Trachea midline; supple, no thyromegaly or lymphadenopathy Lungs: CTA, with normal respiratory effort and no intercostal retractions CV: RRR no murmur Abdomen: Soft, non-tender; +PEG Extremities: no edema, cyanosis Skin: sacral dec with surgical dressings Psych: calm Neuro: somnolent - Constitutional Vitals: Vital Signs Temp Pulse Resp BP Pulse Ox 98.7 F 94 H 18 145/59 100 01/06/19 04:00 01/06/19 04:00 01/06/19 04:05 01/06/19 04:00 01/06/19 04:00 Temperature -Last 24 Hours Temperature 98.7 F Temperature 98.4 F Temperature 97.8 F Temperature 97.5 F - Labs CBC & Chem 7: 01/03/19 17:16 01/05/19 04:56 Labs: Abnormal lab results 01/05/19 01/05/19 01/06/19 Range/Units 11:50 17:21 00:22 POC Glucose 190 H 181 H 157 H (70-105) 01/06/19 Range/Units 06:43 POC Glucose 150 H (70-105)
[2019-01-06] MEDS: LOPRESSOR PO SCH ×2 (11:07→22:03)
[2019-01-06] MEDS: HALFPRIN EC PO SCH (11:08)
[2019-01-06] MEDS: PEPCID PO SCH (11:08)
[2019-01-06] MEDS: FOLVITE PO SCH (11:08)
[2019-01-06] MEDS: HEPARIN SUB-Q SCH ×2 (11:08→22:03)
[2019-01-06] MEDS: MIRALAX 3350 PO SCH (11:08)
[2019-01-06] MEDS: SODIUM CHLORIDE FLUSH SYRINGE 10 ML IV SCH ×2 (11:09→22:04)
[2019-01-06] MEDS: RisperDAL PO SCH ×2 (11:09→22:04)
[2019-01-06] MEDS: ZOLOFT PO SCH (11:09)
[2019-01-06] MEDS: COLACE PO SCH ×2 (11:11→22:05)
--- NOTE | 2019-01-06 12:27 | Progress Note ---
Assessment and Plan Impression * End-stage renal disease on maintenance hemodialysis * Altered mental status * Sacral decubitus * Hypokalemia * Failure to thrive * Hypophosphatemia * Malnutrition * Anemia secondary to ESRD * Hypomagnesemia Recommendations * Continue dialysis on TTS schedule for now * Use higher K bath for dialysis * Replace potassium, phosphorus and magnesium * Antibiotic therapy and local wound care as per primary team * Avoid nephrotoxins * Epogen with dialysis * Adjust diet and meds were ESRD state Subjective Date of service: 01/06/19 Principal diagnosis: AMS; AFib Interval history: resting in bed Objective - Exam Narrative Exam: General appearance: chronically ill, frail EENT: PERRL, mucous membranes moist Neck: no JVD, no thyromegaly, no carotid bruit, supple, other (IJ PermCath in place) Respiratory: Present: Clear to Ascultation Cardiology: regular, normal heart rate, S1S2, no murmurs Gastrointestinal: normal, normoactive bowel sounds, other (PEG tube in place) - Vital Signs Vital signs: Vital Signs - 12hr 01/06/19 01/06/19 01/06/19 04:00 04:05 08:26 Temperature 98.7 F 98.2 F Pulse Rate 94 H 98 H Respiratory 20 18 20 Rate Blood Pressure 145/59 134/70 O2 Sat by Pulse 100 100 Oximetry - Lab 01/03/19 17:16 01/05/19 04:56 Most recent lab results Calcium 9.5 mg/dL (8.4-10.2) 01/05/19 04:56 Phosphorus 2.90 mg/dL (2.5-4.5) D 01/05/19 04:56 Magnesium 2.00 mg/dL (1.7-2.3) 01/05/19 04:56 Medications & Allergies - Medications Allergies/Adverse Reactions: Allergies haloperidol [From Haldol] Adverse Reaction (Verified 03/13/18 12:10) Unknown haloperidol lactate [From Haldol] Adverse Reaction (Verified 03/13/18 12:10) Unknown Home Medications: Home Medications Medication Instructions Recorded Confirmed Last Taken Type risperiDONE [RisperDAL] 1 mg PO QAM 03/13/18 12/27/18 Unknown History Sertraline [Zoloft] 100 mg PO QDAY 08/26/18 12/27/18 Unknown History risperiDONE [RisperDAL] 0.5 mg PO HS 08/26/18 12/27/18 Unknown History Polyethylene Glycol 3350 [Miralax 17 gm PO QDAY #30 packet 11/05/18 12/27/18 Unknown Rx 3350] Aspirin EC 81 mg PO DAILY #30 11/19/18 12/27/18 Unknown Rx Docusate Sodium [Colace CAP] 100 mg PO BID #60 11/19/18 12/27/18 Unknown Rx Folic Acid [Folvite] 1 mg PO DAILY #30 tab 11/19/18 12/27/18 Unknown Rx Famotidine [Pepcid] 20 mg PO DAILY tablet 12/08/18 12/27/18 Unknown Rx Gabapentin [Neurontin] 100 mg PO QHS capsule 12/08/18 12/27/18 Unknown Rx Metoprolol [Lopressor TAB] 50 mg PO BID 30 Days tablet 12/08/18 12/27/18 Unknown Rx Sevelamer Carbonate [Renvela] 800 mg PO TIDWM tablet 12/08/18 12/27/18 Unknown Rx hydrALAZINE [Apresoline TAB] 100 mg PO Q8HR #120 tablet 12/08/18 12/27/18 Unknown Rx Acetaminophen [Acetaminophen TAB] 650 mg PO Q12H PRN 12/15/18 12/27/18 Unknown History Amino Acids/Protein Hydrolys 30 ml PO BID 12/15/18 12/27/18 Unknown History [Pro-Stat Sugar Free Liquid] Glucagon,Human Recombinant 1 mg IJ Q15MIN PRN 12/15/18 12/27/18 Unknown History [Glucagon Emergency Kit] Insulin Aspart [NovoLOG 100 See Protocol SQ QWEEK 12/15/18 12/27/18 Unknown History UNITS/ML VIAL] Epoetin Solitario 10,000 Unit [Procrit] 10,000 unit IV UMA PRN vial 12/18/18 12/27/18 Unknown Rx Lispro Insulin [HumaLOG] 0 unit SUB-Q ACHS units 12/18/18 12/27/18 Unknown Rx risperiDONE [RisperDAL] 0.5 mg PO QHS tablet 12/18/18 12/27/18 Unknown Rx Active Medications: Generic Name Dose Route Start Last Admin Trade Name Freq PRN Reason Stop Dose Admin Acetaminophen 650 mg 12/26/18 21:40 01/05/19 05:50 Tylenol PO 650 mg Q4H PRN Administration Pain MILD(1-3)/Fever >100.5/HILL Lipase/Protease/Amylase 1 each 01/03/19 13:07 Mc Barrientos 10,500 Unit FEEDTUBE PRN PRN For Clogged Feeding Tube Aspirin 81 mg 12/27/18 10:00 01/06/19 11:08 Halfprin Ec PO 81 mg DAILY SANCHEZ Administration Docusate Sodium 100 mg 12/26/18 22:00 01/06/19 11:11 Colace PO Not Given BID [facility] Epoetin Solitario 20,000 unit 01/05/19 11:03 Procrit IV UMA PRN hemodialysis Famotidine 20 mg 12/27/18 10:00 01/06/19 11:08 Pepcid PO 20 mg DAILY [facility] Administration Folic Acid 1 mg 12/27/18 10:00 01/06/19 11:08 Folvite PO 1 mg DAILY SANCHEZ Administration Gabapentin 100 mg 12/26/18 22:00 01/05/19 22:02 Neurontin PO 100 mg QHS [facility] Administration Heparin Sodium (Porcine) 5,000 unit 12/26/18 22:00 01/06/19 11:08 Heparin SUB-Q 5,000 unit Q12HR SANCHEZ Administration Hydralazine HCl 100 mg 12/26/18 22:00 01/06/19 07:59 Apresoline PO Not Given Q8HR [facility] Meropenem 1,000 mg/ Sodium 100 mls @ 100 mls/hr 01/05/19 11:00 01/05/19 14:26 Chloride IV 100 mls/hr Q24HR SANCHEZ Administration Vancomycin HCl 1 gm in 250 mls @ 167.007 mls/hr 01/06/19 20:00 Vancomycin/Ns 1 Gm/250 Ml IV TuThSa [facility] Metoprolol Tartrate 5 mg 12/27/18 18:55 12/29/18 05:41 Lopressor IV 5 mg Q5MIN PRN Administration increased heart rate Metoprolol Tartrate 100 mg 12/31/18 22:00 01/06/19 11:07 Lopressor PO 100 mg BID SANCHEZ Administration Ondansetron HCl 4 mg 12/26/18 21:40 Zofran IV Q8H PRN Nausea And Vomiting Oxycodone/Acetaminophen 1 tab 01/05/19 08:30 01/06/19 04:05 Percocet 5/325 PO 1 tab Q6H PRN Administration Pain, Moderate (4-6) Polyethylene Glycol 17 gm 12/27/18 10:00 01/06/19 11:08 Miralax 3350 PO Not Given QDAY SANCHEZ Risperidone 0.5 mg 12/26/18 22:00 01/05/19 22:02 Risperdal PO 0.5 mg QHS SANCHEZ Administration Risperidone 1 mg 12/27/18 10:00 01/06/19 11:09 Risperdal PO 1 mg QAM SANCHEZ Administration Sertraline HCl 100 mg 12/27/18 10:00 01/06/19 11:09 Zoloft PO 100 mg QDAY SANCHEZ Administration Simple Syrup 15 ml 01/03/19 13:07 Simple Syrup FEEDTUBE PRN PRN Hypoglycemia Simple Syrup 30 ml 01/03/19 13:07 Simple Syrup FEEDTUBE PRN PRN Hypoglycemia Sodium Bicarbonate 325 mg 01/03/19 13:07 Sodium Bicarbonate FEEDTUBE PRN PRN For Clogged Feeding Tube Sodium Chloride 10 ml 12/26/18 22:00 01/06/19 11:09 Sodium Chloride Flush Syringe 10 Ml IV 10 ml BID SANCHEZ Administration Sodium Chloride 10 ml 12/26/18 21:40 01/03/19 22:02 Sodium Chloride Flush Syringe 10 Ml IV 10 ml PRN PRN Administration LINE FLUSH Sodium Hypochlorite 1 applic 01/01/19 15:31 01/03/19 17:03 Dakin's Half Strength TP 1 applicatio Q12H PRN Administration Wound Care
--- NOTE | 2019-01-06 15:26 | Progress Note ---
Assessment and Plan Assessment and plan: Patient is a 63-year-old -[place] man from [facility] with a plethora of co-morbidities including blindness, CVA, CHF, PPM/ICD, loop recorder since 2013 that is MRI compatible, IDDM type 2, sepsis left foot ulcer, afib, ESRD with complications on HD TTS, hypertension, AOCD and GERD who presented to [facility] with altered sensorium and decreased responsiveness. Decreased responsive and not eating at all for 2 days. Patient has failure to thrive, altered mentation and weight loss of 20 pounds since 12/08/2018. Severe Sepsis due to Necrotizing Unstagable sacral decubitus ulcer s/p OR on 01/01/2019 for open excisional debridement of necrotic and infected sacral wound noted a large amount of necrotic tissue debrided and two abscess cavities at the caudad portion of the wound with a copious amount of purulent drainage which was drained. Wound cultures 01/02/2019 ESBL Kleb, MDR Ecoli and E raffinosus resistant to penicillin: On meropenam and vanc per ID. Consult Vascular surgery for central line placement, planned for diverting colostomy, family has agreed, awaiting cardiology preop eval Acute metabolic encephalopathy due to the above Acute systolic exacerbation of CHF (congestive heart failure): treat via Ultrafiltration during HD Afib with RVR: cont hd, optimize meds per cardiology ESRD needing dialysis: Nephology is managing, Continue hemo dialysis Insulin dependent diabetes mellitus, A1c is 4.2: insulin was dc Severe malnutrition with FTT: 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, cont oral diet, injection wax molder input appreciated, PEG tube placed on 01/02/19 Hypertension: Continue antihypertensives h/o Peripheral neuropathy: Continue gabapentin h/o Anemia: Continue epoetin Elevated troponin, Secondary to end-stage renal disease, chf and afib, Cardiology input appreciated DVT prophylaxis On heparin and GI prophylaxis History Interval history: Patient was seen and examined. Follow-up on current diagnosis Sacral decubitus ulcer. No overnight events reported to me. Imaging, nursing note, chart, labs and old chart reviewed. Hospitalist Physical - Physical exam Narrative exam: Gen: severely chronically ill appearing, semi-comatose, mouth open, head flexed, eyes closed, unresponsive HEENT: NCAT, >right eye matted shut, OP dried out with mouth open but good oral care done. Neck: supple, no adenopathy, no thyromegaly, no JVD CVS/Heart: RRR, normal S1S2, pulses present bilaterally Chest/Lungs: poor air entry, Symmetrical chest expansion, good air entry bilaterally GI/Abdomen: soft, peg in place, NTND, good bowel sounds, no guarding or rebound /Bladder: no suprapubic tenderness, no CVA or paraspinal tenderness Extermity/Skin: atrophic contracted legs MSK: doesn't follow commands Neuro: doesn't follow commands Psych: unresponsive - Constitutional Vitals: Temp Pulse Resp BP Pulse Ox 98.2 F 98 H 20 134/70 100 01/06/19 08:26 01/06/19 08:26 01/06/19 08:26 01/06/19 08:26 01/06/19 08:26 General appearance: Present: no acute distress, cachectic, disheveled Results - Labs CBC & Chem 7: 01/07/19 00:45 01/07/19 11:16 Labs: Laboratory Last Values WBC 11.2 K/mm3 (4.5-11.0) H 01/03/19 17:16 RBC 2.92 M/mm3 (3.65-5.03) L 01/03/19 17:16 Hgb 7.4 gm/dl (11.8-15.2) L 01/03/19 17:16 Hct 23.6 % (35.5-45.6) L 01/03/19 17:16 MCV 81 fl (84-94) L 01/03/19 17:16 MCH 25 pg (28-32) L 01/03/19 17:16 MCHC 31 % (32-34) L 01/03/19 17:16 RDW 19.6 % (13.2-15.2) H 01/03/19 17:16 Plt Count 123 K/mm3 (140-440) L 01/03/19 17:16 Lymph % (Auto) Construction Engineering Manager 12/27/18 07:04 [place] % (Auto) Construction Engineering Manager 12/27/18 07:04 Eos % (Auto) Construction Engineering Manager 12/27/18 07:04 Baso % (Auto) Construction Engineering Manager 12/27/18 07:04 Lymph # Construction Engineering Manager 12/27/18 07:04 [place] # Construction Engineering Manager 12/27/18 07:04 Eos # Construction Engineering Manager 12/27/18 07:04 Baso # Construction Engineering Manager 12/27/18 07:04 Add Manual Diff Complete 01/03/19 17:16 Total Counted 100 01/03/19 17:16 Seg Neutrophils % Construction Engineering Manager 01/03/19 17:16 Seg Neuts % (Manual) 96.0 % (40.0-70.0) H 01/03/19 17:16 0 % 01/03/19 17:16 2.0 % (13.4-35.0) L 01/03/19 17:16 Reactive Lymphs % (Man) 0 % 01/03/19 17:16 2.0 % (0.0-7.3) 01/03/19 17:16 0 % (0.0-4.3) 01/03/19 17:16 0 % (0.0-1.8) 01/03/19 17:16 0 % 01/03/19 17:16 0 % 01/03/19 17:16 0 % 01/03/19 17:16 0 % 01/03/19 17:16 Nucleated RBC % Not Reportable 01/03/19 17:16 Seg Neutrophils # Construction Engineering Manager 12/27/18 07:04 Seg Neutrophils # Man 10.8 K/mm3 (1.8-7.7) H 01/03/19 17:16 Band Neutrophils # 0.0 K/mm3 01/03/19 17:16 0.2 K/mm3 (1.2-5.4) L 01/03/19 17:16 Abs React Lymphs (Man) 0.0 K/mm3 01/03/19 17:16 0.2 K/mm3 (0.0-0.8) 01/03/19 17:16 0.0 K/mm3 (0.0-0.4) 01/03/19 17:16 0.0 K/mm3 (0.0-0.1) 01/03/19 17:16 0.0 K/mm3 01/03/19 17:16 0.0 K/mm3 01/03/19 17:16 0.0 K/mm3 01/03/19 17:16 Blast Cells # 0.0 K/mm3 01/03/19 17:16 WBC Morphology Not Reportable 01/03/19 17:16 Hypersegmented Neuts Not Reportable 01/03/19 17:16 Hyposegmented Neuts Not Reportable 01/03/19 17:16 Hypogranular Neuts Not Reportable 01/03/19 17:16 Not Reportable 01/03/19 17:16 Not Reportable 01/03/19 17:16 Not Reportable 01/03/19 17:16 Not Reportable 01/03/19 17:16 Not Reportable 01/03/19 17:16 Not Reportable 01/03/19 17:16 Consistent w auto 01/03/19 17:16 Not Reportable 01/03/19 17:16 Plt Clumps, EDTA Not Reportable 01/03/19 17:16 Not Reportable 01/03/19 17:16 Not Reportable 01/03/19 17:16 Not Reportable 01/03/19 17:16 Plt Morphology Comment Not Reportable 01/03/19 17:16 RBC Morphology Not Reportable 01/03/19 17:16 Dimorphic RBCs Not Reportable 01/03/19 17:16 Not Reportable 01/03/19 17:16 1+ 01/03/19 17:16 Few 01/03/19 17:16 1+ 01/03/19 17:16 Not Reportable 01/03/19 17:16 Not Reportable 01/03/19 17:16 Not Reportable 01/03/19 17:16 Not Reportable 01/03/19 17:16 Not Reportable 01/03/19 17:16 Few 01/03/19 17:16 Not Reportable 01/03/19 17:16 Few 01/03/19 17:16 Not Reportable 01/03/19 17:16 Not Reportable 01/03/19 17:16 Not Reportable 01/03/19 17:16 Not Reportable 01/03/19 17:16 Not Reportable 01/03/19 17:16 Not Reportable 01/03/19 17:16 Not Reportable 01/03/19 17:16 Acanthocytes (Spur) Not Reportable 01/03/19 17:16 Rouleaux Not Reportable 01/03/19 17:16 Not Reportable 01/03/19 17:16 Not Reportable 01/03/19 17:16 Not Reportable 01/03/19 17:16 Not Reportable 01/03/19 17:16 Hem Pathologist Commnt No 01/03/19 17:16 PT 18.0 Sec. (12.2-14.9) H 01/02/19 05:39 INR 1.39 (0.87-1.13) H 01/02/19 05:39 Sodium 140 mmol/L (137-145) 01/05/19 04:56 Potassium 3.8 mmol/L (3.6-5.0) D 01/05/19 04:56 Chloride 101.4 mmol/L (98-107) 01/05/19 04:56 Carbon Dioxide 27 mmol/L (22-30) 01/05/19 04:56 15 mmol/L 01/05/19 04:56 BUN 28 mg/dL (9-20) H 01/05/19 04:56 2.7 mg/dL (0.8-1.5) H D 01/05/19 04:56 Estimated GFR 29 ml/min 01/05/19 04:56 10 % 01/05/19 04:56 Glucose 174 mg/dL (75-100) H 01/05/19 04:56 POC Glucose 138 (70-105) H 01/06/19 12:00 < 4.2 % (4-6) 12/26/18 17:12 Lactic Acid 1.10 mmol/L (0.7-2.0) 12/27/18 07:04 Calcium 9.5 mg/dL (8.4-10.2) 01/05/19 04:56 Phosphorus 2.90 mg/dL (2.5-4.5) D 01/05/19 04:56 Magnesium 2.00 mg/dL (1.7-2.3) 01/05/19 04:56 0.60 mg/dL (0.1-1.2) 01/01/19 17:32 AST 9 units/L (5-40) 01/01/19 17:32 ALT < 5 units/L (7-56) L 01/01/19 17:32 114 units/L (35-129) 01/01/19 17:32 29 units/L (55-170) L 12/26/18 17:12 0.158 ng/mL (0.00-0.029) H* 12/26/18 17:12 5.9 g/dL (6.3-8.2) L 01/01/19 17:32 2.2 g/dL (3.9-5) L 01/01/19 17:32 0.6 % 01/01/19 17:32 Triglycerides 75 mg/dL (2-149) 12/26/18 17:12 Cholesterol 109 mg/dL (50-199) 12/26/18 17:12 43 mg/dL (50-130) L 12/26/18 17:12 41 mg/dL (40-59) 12/26/18 17:12 2.65 % 12/26/18 17:12 PTH Intact 178.6 pg/mL (15-65) H 01/01/19 17:32 Random Vancomycin 9.1 ug/mL (0-40.0) 01/02/19 05:39 Active Medications - Current Medications Current Medications: Generic Name Dose Route Start Last Admin Trade Name Freq PRN Reason Stop Dose Admin Acetaminophen 650 mg 12/26/18 21:40 01/05/19 05:50 Tylenol PO 650 mg Q4H PRN Administration Pain MILD(1-3)/Fever >100.5/HILL Lipase/Protease/Amylase 1 each 01/03/19 13:07 Pancreaze 10,500 Unit FEEDTUBE PRN PRN For Clogged Feeding Tube Aspirin 81 mg 12/27/18 10:00 01/06/19 11:08 Halfprin Ec PO 81 mg DAILY SANCHEZ Administration Docusate Sodium 100 mg 12/26/18 22:00 01/06/19 11:11 Colace PO Not Given BID SANCHEZ Epoetin Solitario 20,000 unit 01/05/19 11:03 Procrit IV UMA PRN hemodialysis Famotidine 20 mg 12/27/18 10:00 01/06/19 11:08 Pepcid PO 20 mg DAILY SANCHEZ Administration Folic Acid 1 mg 12/27/18 10:00 01/06/19 11:08 Folvite PO 1 mg DAILY SANCHEZ Administration Gabapentin 100 mg 12/26/18 22:00 01/05/19 22:02 Neurontin PO 100 mg QHS SANCHEZ Administration Heparin Sodium (Porcine) 5,000 unit 12/26/18 22:00 01/06/19 11:08 Heparin SUB-Q 5,000 unit Q12HR SANCHEZ Administration Hydralazine HCl 100 mg 12/26/18 22:00 01/06/19 07:59 Apresoline PO Not Given Q8HR SANCHEZ Meropenem 1,000 mg/ Sodium 100 mls @ 100 mls/hr 01/05/19 11:00 01/05/19 14:26 Chloride IV 100 mls/hr Q24HR SANCHEZ Administration Vancomycin HCl 1 gm in 250 mls @ 167.007 mls/hr 01/06/19 20:00 Vancomycin/Ns 1 Gm/250 Ml IV TuThSa SANCHEZ Metoprolol Tartrate 5 mg 12/27/18 18:55 12/29/18 05:41 Lopressor IV 5 mg Q5MIN PRN Administration increased heart rate Metoprolol Tartrate 100 mg 12/31/18 22:00 01/06/19 11:07 Lopressor PO 100 mg BID SANCHEZ Administration Ondansetron HCl 4 mg 12/26/18 21:40 Zofran IV Q8H PRN Nausea And Vomiting Oxycodone/Acetaminophen 1 tab 01/05/19 08:30 01/06/19 04:05 Percocet 5/325 PO 1 tab Q6H PRN Administration Pain, Moderate (4-6) Polyethylene Glycol 17 gm 12/27/18 10:00 01/06/19 11:08 Miralax 3350 PO Not Given QDAY SANCHEZ Risperidone 0.5 mg 12/26/18 22:00 01/05/19 22:02 Risperdal PO 0.5 mg QHS SANCHEZ Administration Risperidone 1 mg 12/27/18 10:00 01/06/19 11:09 Risperdal PO 1 mg QAM SANCHEZ Administration Sertraline HCl 100 mg 12/27/18 10:00 01/06/19 11:09 Zoloft PO 100 mg QDAY SANCHEZ Administration Simple Syrup 15 ml 01/03/19 13:07 Simple Syrup FEEDTUBE PRN PRN Hypoglycemia Simple Syrup 30 ml 01/03/19 13:07 Simple Syrup FEEDTUBE PRN PRN Hypoglycemia Sodium Bicarbonate 325 mg 01/03/19 13:07 Sodium Bicarbonate FEEDTUBE PRN PRN For Clogged Feeding Tube Sodium Chloride 10 ml 12/26/18 22:00 01/06/19 11:09 Sodium Chloride Flush Syringe 10 Ml IV 10 ml BID SANCHEZ Administration Sodium Chloride 10 ml 12/26/18 21:40 01/03/19 22:02 Sodium Chloride Flush Syringe 10 Ml IV 10 ml PRN PRN Administration LINE FLUSH Sodium Hypochlorite 1 applic 01/01/19 15:31 01/03/19 17:03 Dakin's Half Strength TP 1 applicatio Q12H PRN Administration Wound Care Nutrition/Malnutrition Assess - Dietary Evaluation Nutrition/Malnutrition Findings: Nutrition Notes Start: 12/27/18 17:15 Freq: Status: Active Protocol: Document 01/05/19 17:45 RM (Rec: 01/05/19 17:52 RM [email or web address]) Nutrition Notes Initial or Follow up Reassessment Current Diagnosis CKD (stage V CKD),Diabetes, Hypertension Other Pertinent Diagnosis S/P PEG, Sacral wound, FTT, acute encephalopathy Current Diet TF - Glucerna 1.2 at 65ml/hr Labs/Tests K 3.8 P 2.9 Creat 2.7 BUN 28 GFR 29 Pertinent Medications Reviewed Height 5 ft 7 in Weight 83.4 kg [place] Body Weight (kg) 67.27 BMI 28.8 Subjective/Other Information Observed Glucerna infusing at 50 ml/hr. Bias Binding Cutter clarified that goal rate is 65 ml/hr. Per nurse pt is tolerating TF. Burn Absent Trauma Absent Is patient on ventilator? No Is Patient Ambulatory and/or Out of Bed No REE-([facility]-confined to bed) 1904.292 Kcal/Kg value to use for calculation 17 Approximate Energy Requirements Using 1418 kcal/Kg Calculation Used for Recommendations [facility] Additional Notes Pro needs 1.2-1.4g/k- 118g/day Fluid needs 1-1.5L/day Nutrition Intervention Nutrition Support: Continue Glucerna 1.2 at 65 ml /hr. Water flush of 100 mls q 4 hrs . Kcal 1,872 Protein (gm) 94 Carbohydrates (gm) 179 Fat (gm) 94 Fluid (mL) 1,256 Fiber (gm) 25 Goal #1 TF tolerance Goal #2 TF at goal rate to Continue to meet at least 75% energy and pro needs Goal #3 Wound healing Anticipated Discharge Needs: Unable to determine at this time Follow-Up By: 01/08/19 Additional Comments Follow for TF tolerance
--- NOTE | 2019-01-06 16:49 | Event Note ---
Date: 01/06/[address] Pedraza. Due to the recent placement of the PEG tube and the non-urgent nature of the diverting colostomy, it would be preferable to wait until next week (about 2 weeks from the PEG placement) to schedule him for surgery to minimize risk of complications from the new PEG. Discussed with Dr. Davis.
[2019-01-06] MEDS: PROCRIT IV PRN (17:10)
[2019-01-06] MEDS ORDERED: NACL 0.9 (PRIMING MACHINE ONLY DIALYSIS) MC ONE (17:12)
[2019-01-06] MEDS: MERREM 1,000 MG in NACL 0.9% 100 ML IV SCH (18:06)
[2019-01-06] MEDS: VANCOMYCIN/NS 1 GM/250 ML 1 GM/250 ML BAG IV SCH (22:02)
[2019-01-06] MEDS: NEURONTIN PO SCH (22:03)
[2019-01-07 01:19] LABS: Hematocrit 23.2 % (35.5-45.6); Hemoglobin 7.2 gm/dl (11.8-15.2); Mean Corpuscular HGB Conc 31 % (32-34); Mean Corpuscular Volume 83 fl (84-94); Platelet Count 138 K/mm3 (140-440); Red Blood Count 2.81 M/mm3 (3.65-5.03); Red Cell Distribution Width 20.6 % (13.2-15.2)
[2019-01-07 01:20] LABS: Basophils % (Auto) 0.2 % (0.0-1.8); Eosinophils # (Auto) 0.3 K/mm3 (0.0-0.4); Eosinophils % (Auto) 3.8 % (0.0-4.3); Lymphocytes # (Auto) 0.5 K/mm3 (1.2-5.4); Lymphocytes % (Auto) 5.8 % (13.4-35.0); Monocytes # (Auto) 0.5 K/mm3 (0.0-0.8)
[2019-01-07] MEDS: APRESOLINE PO SCH ×3 (06:39→23:44)
--- NOTE | 2019-01-07 09:03 | Progress Note ---
Assessment and Plan Cultures: Blood cultures 12/26/2018 no growth today. Blood cultures 01/01/2019 no growth today. Wound cultures 01/02/2019 ESBL Kleb, MDR Ecoli and E raffinosus resistant to penicillin. Assessment: 63 y/o male with history of ESRD on HD, HTN, CAD S/P CABG, CVA, DM, Atrial Fib, Anemia, Hyperparathyroidism, Hypocalcemia, schizophrenia; well known to ID service from previous admission, readmitted on 12/26/2018 due to altered sensorium and decreased responsiveness for 48 hour and decreased PO intake for 2 weeks. 1) Severe Sepsis: Improved. No fevers.Still tachycardia. Etiology most likely unstagable necrotic sacral decubitus. 2) Unstagable necrotic sacral decubitus: s/p OR on 01/01/2019 for open excisional debridement of necrotic and infected sacral wound noted a large amount of necrotic tissue debrided and two abscess cavities at the caudad portion of the wound with a copious amount of purulent drainage which was drained. Wound cultures 01/02/2019 ESBL Kleb, MDR Ecoli and E raffinosus resistant to penicillin. Surgery plans for diverting colostomy in 2 weeks. 3) History of MSSE septicemia + MRSA foot infection. Bone scan POSITIVE for osteomyelitis 4th and 5th MT head. Treated with IV vancomcyin for total of 6 weeks until 05/05/18. 4) History of septic shock from vivi HAP vs aspiration pneumonia treated with cefepime and flagyl for 7 days. 5) Acute on chronic encephalopathy: from infection CT head chronic changes and ?mastoiditis. Recommendations: - continue meropenem 1 gm every 24 hours, D3 - continue vancomycin renally adjusted, D9 - contact isolation -Anticipate discharge on Meropenem 1 gm IV every 24 hours via tunneled catheter and Vancomycin 1 gm post HD Saturday, and Saturday for 6 weeks ending 02-16-19 -consult vascular for tunneled Catheter placement -order placed with case management [facility] M: [phone] O:[phone] Subjective Date of service: 01/07/19 Principal diagnosis: AMS; AFib Interval history: Patient seen and examined. Asleep. Not easy to arouse. nonverbal, calm. Objective - Exam Narrative Exam: General appearance: somnolent in NAD Eyes: left eye enucleation with prosthesis HENT: Atraumatic; oropharynx clear limited Neck: Trachea midline; supple, no thyromegaly or lymphadenopathy Lungs: CTA, with normal respiratory effort and no intercostal retractions CV: RRR no murmur Abdomen: Soft, non-tender; +PEG Extremities: no edema, cyanosis Skin: sacral dec with surgical dressings Psych: calm Neuro: somnolent - Constitutional Vitals: Vital Signs Temp Pulse Resp BP Pulse Ox 98.7 F 101 H 18 124/64 100 01/07/19 08:22 01/07/19 03:48 01/07/19 08:22 01/07/19 08:22 01/07/19 03:48 Temperature -Last 24 Hours Temperature 98.7 F Temperature 98.0 F Temperature 98.0 F Temperature 98.0 F Temperature 98.0 F Temperature 98.0 F Temperature 98.0 F - Labs CBC & Chem 7: 01/07/19 00:45 01/07/19 11:16 Labs: Abnormal lab results 01/06/19 01/06/19 01/07/19 Range/Units 12:00 18:26 00:09 RBC (3.65-5.03) M/mm3 Hgb (11.8-15.2) gm/dl Hct (35.5-45.6) % MCV (84-94) fl MCH (28-32) pg MCHC (32-34) % RDW (13.2-15.2) % Plt Count (140-440) K/mm3 Lymph % (Auto) (13.4-35.0) % Lymph # (1.2-5.4) K/mm3 Seg Neutrophils % (40.0-70.0) % POC Glucose 138 H 135 H 168 H (70-105) 01/07/19 01/07/19 Range/Units 00:45 05:52 RBC 2.81 L (3.65-5.03) M/mm3 Hgb 7.2 L (11.8-15.2) gm/dl Hct 23.2 L (35.5-45.6) % MCV 83 L (84-94) fl MCH 25 L (28-32) pg MCHC 31 L (32-34) % RDW 20.6 H (13.2-15.2) % Plt Count 138 L (140-440) K/mm3 Lymph % (Auto) 5.8 L (13.4-35.0) % Lymph # 0.5 L (1.2-5.4) K/mm3 Seg Neutrophils % 84.2 H (40.0-70.0) % POC Glucose 157 H (70-105)
[2019-01-07] MEDS: MIRALAX 3350 PO SCH (10:23)
[2019-01-07] MEDS: COLACE PO SCH ×2 (10:23→23:43)
[2019-01-07] MEDS: HALFPRIN EC PO SCH (10:24)
[2019-01-07] MEDS: FOLVITE PO SCH (10:24)
[2019-01-07] MEDS: PEPCID PO SCH (10:24)
[2019-01-07] MEDS: ZOLOFT PO SCH (10:24)
[2019-01-07] MEDS: RisperDAL PO SCH ×2 (10:24→23:44)
[2019-01-07] MEDS: LOPRESSOR PO SCH ×2 (10:24→23:44)
[2019-01-07] MEDS: SODIUM CHLORIDE FLUSH SYRINGE 10 ML IV SCH ×2 (10:25→23:45)
[2019-01-07] MEDS: HEPARIN SUB-Q SCH ×2 (10:25→23:44)
[2019-01-07] MEDS: MERREM 1,000 MG in NACL 0.9% 100 ML IV SCH (10:39)
[2019-01-07 11:59] LABS: Alanine Aminotransferase < 5 units/L (7-56); BUN/Creatinine Ratio 11; Blood Urea Nitrogen 24 mg/dL (9-20); Hemolysis Index 9
[2019-01-07] MEDS: PERCOCET 5/325 PO PRN ×2 (12:04→18:41)
--- NOTE | 2019-01-07 12:33 | Progress Note ---
Assessment and Plan Assessment and plan: Patient is a 63-year-old -[place] man from [facility] with a plethora of co-morbidities including blindness, CVA, CHF, PPM/ICD, loop recorder since 2013 that is MRI compatible, IDDM type 2, sepsis left foot ulcer, afib, ESRD with complications on HD TTS, hypertension, AOCD and GERD who presented to [facility] with altered sensorium and decreased responsiveness. Decreased responsive and not eating at all for 2 days. Patient has failure to thrive, altered mentation and weight loss of 20 pounds since 12/08/2018. Severe Sepsis due to Necrotizing Unstagable sacral decubitus ulcer s/p OR on 01/01/2019 for open excisional debridement of necrotic and infected sacral wound noted a large amount of necrotic tissue debrided and two abscess cavities at the caudad portion of the wound with a copious amount of purulent drainage which was drained. Wound cultures 01/02/2019 ESBL Kleb, MDR Ecoli and E raffinosus resistant to penicillin: On meropenam and vanc per ID. Consult Vascular surgery for central line placement, planned for diverting colostomy, family has agreed, awaiting cardiology preop eval Acute metabolic encephalopathy due to the above Acute systolic exacerbation of CHF (congestive heart failure): treat via Ultrafiltration during HD Afib with RVR: rate control only and optimize meds per Cardiology ESRD needing dialysis: Nephology is managing, Continue hemo dialysis Insulin dependent diabetes mellitus, A1c is 4.2: insulin was dc Severe malnutrition with FTT: 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, cont oral diet, cable swager input appreciated, PEG tube placed on 01/02/19 Hypertension: Continue antihypertensives h/o Peripheral neuropathy: Continue gabapentin h/o Anemia: Continue epoetin Elevated troponin, Secondary to end-stage renal disease, chf and afib, Cardiology input appreciated DVT prophylaxis On heparin and GI prophylaxis re-consulted Cardiology for pre-op evaluation d/w Dr. Briggs, needs 2 weeks from PEG placement to perform diverting colostomy, should be done next week d/w Dr. Villela, consulted Vascular surgery for central line placement for Merem. monitor bmp and cbc closely. hemoglobin down to 7.2 History Interval history: Patient was seen and examined. Follow-up on current diagnosis Sacral decubitus ulcer. No overnight events reported to me. Imaging, nursing note, chart, labs and old chart reviewed. Hospitalist Physical - Physical exam Narrative exam: Gen: severely chronically ill appearing, semi-comatose, mouth open, head flexed, eyes closed, unresponsive HEENT: NCAT, >right eye matted shut, OP dried out with mouth open but good oral care done. Neck: supple, no adenopathy, no thyromegaly, no JVD CVS/Heart: irregular irregular, normal S1S2, pulses present bilaterally Chest/Lungs: poor air entry, Symmetrical chest expansion, good air entry bilaterally GI/Abdomen: soft, peg in place, NTND, good bowel sounds, no guarding or rebound /Bladder: no suprapubic tenderness, no CVA or paraspinal tenderness Extermity/Skin: atrophic contracted legs MSK: doesn't follow commands Neuro: doesn't follow commands Psych: unresponsive - Constitutional Vitals: Temp Pulse Resp BP Pulse Ox 98.7 F 101 H 20 124/64 100 01/07/19 08:22 01/07/19 10:24 01/07/19 12:04 01/07/19 10:24 01/07/19 03:48 General appearance: Present: no acute distress, cachectic, disheveled Results - Labs CBC & Chem 7: 01/07/19 00:45 01/07/19 11:16 Labs: Laboratory Last Values WBC 8.2 K/mm3 (4.5-11.0) 01/07/19 00:45 RBC 2.81 M/mm3 (3.65-5.03) L 01/07/19 00:45 Hgb 7.2 gm/dl (11.8-15.2) L 01/07/19 00:45 Hct 23.2 % (35.5-45.6) L 01/07/19 00:45 MCV 83 fl (84-94) L 01/07/19 00:45 MCH 25 pg (28-32) L 01/07/19 00:45 MCHC 31 % (32-34) L 01/07/19 00:45 RDW 20.6 % (13.2-15.2) H 01/07/19 00:45 Plt Count 138 K/mm3 (140-440) L 01/07/19 00:45 Lymph % (Auto) 5.8 % (13.4-35.0) L 01/07/19 00:45 [place] % (Auto) 6.0 % (0.0-7.3) 01/07/19 00:45 Eos % (Auto) 3.8 % (0.0-4.3) 01/07/19 00:45 Baso % (Auto) 0.2 % (0.0-1.8) 01/07/19 00:45 Lymph # 0.5 K/mm3 (1.2-5.4) L 01/07/19 00:45 [place] # 0.5 K/mm3 (0.0-0.8) 01/07/19 00:45 Eos # 0.3 K/mm3 (0.0-0.4) 01/07/19 00:45 Baso # 0.0 K/mm3 (0.0-0.1) 01/07/19 00:45 Add Manual Diff Complete 01/03/19 17:16 Total Counted 100 01/03/19 17:16 Seg Neutrophils % 84.2 % (40.0-70.0) H 01/07/19 00:45 Seg Neuts % (Manual) 96.0 % (40.0-70.0) H 01/03/19 17:16 0 % 01/03/19 17:16 2.0 % (13.4-35.0) L 01/03/19 17:16 Reactive Lymphs % (Man) 0 % 01/03/19 17:16 2.0 % (0.0-7.3) 01/03/19 17:16 0 % (0.0-4.3) 01/03/19 17:16 0 % (0.0-1.8) 01/03/19 17:16 0 % 01/03/19 17:16 0 % 01/03/19 17:16 0 % 01/03/19 17:16 0 % 01/03/19 17:16 Nucleated RBC % Not Reportable 01/03/19 17:16 Seg Neutrophils # 6.9 K/mm3 (1.8-7.7) 01/07/19 00:45 Seg Neutrophils # Man 10.8 K/mm3 (1.8-7.7) H 01/03/19 17:16 Band Neutrophils # 0.0 K/mm3 01/03/19 17:16 0.2 K/mm3 (1.2-5.4) L 01/03/19 17:16 Abs React Lymphs (Man) 0.0 K/mm3 01/03/19 17:16 0.2 K/mm3 (0.0-0.8) 01/03/19 17:16 0.0 K/mm3 (0.0-0.4) 01/03/19 17:16 0.0 K/mm3 (0.0-0.1) 01/03/19 17:16 0.0 K/mm3 01/03/19 17:16 0.0 K/mm3 01/03/19 17:16 0.0 K/mm3 01/03/19 17:16 Blast Cells # 0.0 K/mm3 01/03/19 17:16 WBC Morphology Not Reportable 01/03/19 17:16 Hypersegmented Neuts Not Reportable 01/03/19 17:16 Hyposegmented Neuts Not Reportable 01/03/19 17:16 Hypogranular Neuts Not Reportable 01/03/19 17:16 Not Reportable 01/03/19 17:16 Not Reportable 01/03/19 17:16 Not Reportable 01/03/19 17:16 Not Reportable 01/03/19 17:16 Not Reportable 01/03/19 17:16 Not Reportable 01/03/19 17:16 Consistent w auto 01/03/19 17:16 Not Reportable 01/03/19 17:16 Plt Clumps, EDTA Not Reportable 01/03/19 17:16 Not Reportable 01/03/19 17:16 Not Reportable 01/03/19 17:16 Not Reportable 01/03/19 17:16 Plt Morphology Comment Not Reportable 01/03/19 17:16 RBC Morphology Not Reportable 01/03/19 17:16 Dimorphic RBCs Not Reportable 01/03/19 17:16 Not Reportable 01/03/19 17:16 1+ 01/03/19 17:16 Few 01/03/19 17:16 1+ 01/03/19 17:16 Not Reportable 01/03/19 17:16 Not Reportable 01/03/19 17:16 Not Reportable 01/03/19 17:16 Not Reportable 01/03/19 17:16 Not Reportable 01/03/19 17:16 Few 01/03/19 17:16 Not Reportable 01/03/19 17:16 Few 01/03/19 17:16 Not Reportable 01/03/19 17:16 Not Reportable 01/03/19 17:16 Not Reportable 01/03/19 17:16 Not Reportable 01/03/19 17:16 Not Reportable 01/03/19 17:16 Not Reportable 01/03/19 17:16 Not Reportable 01/03/19 17:16 Acanthocytes (Spur) Not Reportable 01/03/19 17:16 [place]leaux Not Reportable 01/03/19 17:16 Not Reportable 01/03/19 17:16 Not Reportable 01/03/19 17:16 Not Reportable 01/03/19 17:16 Not Reportable 01/03/19 17:16 Hem Pathologist Commnt No 01/03/19 17:16 PT 18.0 Sec. (12.2-14.9) H 01/02/19 05:39 INR 1.39 (0.87-1.13) H 01/02/19 05:39 Sodium 140 mmol/L (137-145) 01/07/19 11:16 Potassium 4.5 mmol/L (3.6-5.0) 01/07/19 11:16 Chloride 101.5 mmol/L (98-107) 01/07/19 11:16 Carbon Dioxide 27 mmol/L (22-30) 01/07/19 11:16 16 mmol/L 01/07/19 11:16 BUN 24 mg/dL (9-20) H 01/07/19 11:16 2.2 mg/dL (0.8-1.5) H 01/07/19 11:16 Estimated GFR 37 ml/min 01/07/19 11:16 11 % 01/07/19 11:16 Glucose 152 mg/dL (75-100) H 01/07/19 11:16 POC Glucose 165 (70-105) H 01/07/19 12:03 < 4.2 % (4-6) 12/26/18 17:12 Lactic Acid 1.10 mmol/L (0.7-2.0) 12/27/18 07:04 Calcium 9.0 mg/dL (8.4-10.2) 01/07/19 11:16 Phosphorus 2.90 mg/dL (2.5-4.5) D 01/05/19 04:56 Magnesium 2.00 mg/dL (1.7-2.3) 01/05/19 04:56 0.20 mg/dL (0.1-1.2) 01/07/19 11:16 AST 12 units/L (5-40) 01/07/19 11:16 ALT < 5 units/L (7-56) L 01/07/19 11:16 92 units/L (35-129) 01/07/19 11:16 29 units/L (55-170) L 12/26/18 17:12 0.158 ng/mL (0.00-0.029) H* 12/26/18 17:12 5.7 g/dL (6.3-8.2) L 01/07/19 11:16 2.0 g/dL (3.9-5) L 01/07/19 11:16 0.5 % 01/07/19 11:16 Triglycerides 75 mg/dL (2-149) 12/26/18 17:12 Cholesterol 109 mg/dL (50-199) 12/26/18 17:12 43 mg/dL (50-130) L 12/26/18 17:12 41 mg/dL (40-59) 12/26/18 17:12 2.65 % 12/26/18 17:12 PTH Intact 178.6 pg/mL (15-65) H 01/01/19 17:32 Random Vancomycin 9.1 ug/mL (0-40.0) 01/02/19 05:39 Active Medications - Current Medications Current Medications: Generic Name Dose Route Start Last Admin Trade Name Freq PRN Reason Stop Dose Admin Acetaminophen 650 mg 12/26/18 21:40 01/05/19 05:50 Tylenol PO 650 mg Q4H PRN Administration Pain MILD(1-3)/Fever >100.5/HILL Lipase/Protease/Amylase 1 each 01/03/19 13:07 Pancrejean carlose 10,500 Unit FEEDTUBE PRN PRN For Clogged Feeding Tube Aspirin 81 mg 12/27/18 10:00 01/07/19 10:24 Halfprin Ec PO 81 mg DAILY SANCHEZ Administration Docusate Sodium 100 mg 12/26/18 22:00 01/07/19 10:23 Colace PO Not Given BID [facility] Epoetin Solitario 20,000 unit 01/05/19 11:03 01/06/19 17:10 Procrit IV 20,000 unit UMA PRN Administration hemodialysis Famotidine 20 mg 12/27/18 10:00 01/07/19 10:24 Pepcid PO 20 mg DAILY SANCHEZ Administration Folic Acid 1 mg 12/27/18 10:00 01/07/19 10:24 Folvite PO 1 mg DAILY SANCHEZ Administration Gabapentin 100 mg 12/26/18 22:00 01/06/19 22:03 Neurontin PO 100 mg QHS SANCHEZ Administration Heparin Sodium (Porcine) 5,000 unit 12/26/18 22:00 01/07/19 10:25 Heparin SUB-Q 5,000 unit Q12HR SANCHEZ Administration Hydralazine HCl 100 mg 12/26/18 22:00 01/07/19 06:39 Apresoline PO 100 mg Q8HR SANCHEZ Administration Meropenem 1,000 mg/ Sodium 100 mls @ 100 mls/hr 01/05/19 11:00 01/07/19 10:39 Chloride IV 100 mls/hr Q24HR SANCHEZ Administration Vancomycin HCl 1 gm in 250 mls @ 167.007 mls/hr 01/06/19 20:00 01/06/19 22:02 Vancomycin/Ns 1 Gm/250 Ml IV 167.007 mls/hr TuThSa SANCHEZ Administration Metoprolol Tartrate 5 mg 12/27/18 18:55 12/29/18 05:41 Lopressor IV 5 mg Q5MIN PRN Administration increased heart rate Metoprolol Tartrate 100 mg 12/31/18 22:00 01/07/19 10:24 Lopressor PO 100 mg BID SANCHEZ Administration Ondansetron HCl 4 mg 12/26/18 21:40 Zofran IV Q8H PRN Nausea And Vomiting Oxycodone/Acetaminophen 1 tab 01/05/19 08:30 01/07/19 12:04 Percocet 5/325 PO 1 tab Q6H PRN Administration Pain, Moderate (4-6) Polyethylene Glycol 17 gm 12/27/18 10:00 01/07/19 10:23 Miralax 3350 PO Not Given QDAY [facility] Risperidone 0.5 mg 12/26/18 22:00 01/06/19 22:04 Risperdal PO 0.5 mg QHS SANCHEZ Administration Risperidone 1 mg 12/27/18 10:00 01/07/19 10:24 Risperdal PO 1 mg QAM SANCHEZ Administration Sertraline HCl 100 mg 12/27/18 10:00 01/07/19 10:24 Zoloft PO 100 mg QDAY SANCHEZ Administration Simple Syrup 15 ml 01/03/19 13:07 Simple Syrup FEEDTUBE PRN PRN Hypoglycemia Simple Syrup 30 ml 01/03/19 13:07 Simple Syrup FEEDTUBE PRN PRN Hypoglycemia Sodium Bicarbonate 325 mg 01/03/19 13:07 Sodium Bicarbonate FEEDTUBE PRN PRN For Clogged Feeding Tube Sodium Chloride 10 ml 12/26/18 22:00 01/07/19 10:25 Sodium Chloride Flush Syringe 10 Ml IV 10 ml BID SANCHEZ Administration Sodium Chloride 10 ml 12/26/18 21:40 01/03/19 22:02 Sodium Chloride Flush Syringe 10 Ml IV 10 ml PRN PRN Administration LINE FLUSH Sodium Hypochlorite 1 applic 01/01/19 15:31 01/03/19 17:03 Dakin's Half Strength TP 1 applicatio Q12H PRN Administration Wound Care Nutrition/Malnutrition Assess - Dietary Evaluation Nutrition/Malnutrition Findings: Nutrition Notes Start: 12/27/18 17:15 Freq: Status: Active Protocol: Document 01/05/19 17:45 RM (Rec: 01/05/19 17:52 RM [id number]) Nutrition Notes Initial or Follow up Reassessment Current Diagnosis CKD (stage V CKD),Diabetes, Hypertension Other Pertinent Diagnosis S/P PEG, Sacral wound, FTT, acute encephalopathy Current Diet TF - Glucerna 1.2 at 65ml/hr Labs/Tests K 3.8 P 2.9 Creat 2.7 BUN 28 GFR 29 Pertinent Medications Reviewed Height 5 ft 7 in Weight 83.4 kg [place] Body Weight (kg) 67.27 BMI 28.8 Subjective/Other Information Observed Glucerna infusing at 50 ml/hr. Insurance Coder clarified that goal rate is 65 ml/hr. Per nurse pt is tolerating TF. Burn Absent Trauma Absent Is patient on ventilator? No Is Patient Ambulatory and/or Out of Bed No REE-([place]-confined to bed) 1904.292 Kcal/Kg value to use for calculation 17 Approximate Energy Requirements Using 1418 kcal/Kg Calculation Used for Recommendations [place] Additional Notes Pro needs 1.2-1.4g/k- 118g/day Fluid needs 1-1.5L/day Nutrition Intervention Nutrition Support: Continue Glucerna 1.2 at 65 ml /hr. Water flush of 100 mls q 4 hrs . Kcal 1,872 Protein (gm) 94 Carbohydrates (gm) 179 Fat (gm) 94 Fluid (mL) 1,256 Fiber (gm) 25 Goal #1 TF tolerance Goal #2 TF at goal rate to Continue to meet at least 75% energy and pro needs Goal #3 Wound healing Anticipated Discharge Needs: Unable to determine at this time Follow-Up By: 01/08/19 Additional Comments Follow for TF tolerance
--- NOTE | 2019-01-07 12:52 | Progress Note ---
Assessment and Plan Cardiology has been asked to reevaluate pt as he has an unstageable sacral decubitus ulcer and general surgery is planning for diverting colostomy. Pt is currently at high cardiovascular risk for contemplated surgery in setting of cardiomyopathy, HFrEF, AFib, multiple-comorbidities. Currently stable cardiac status. There are no immediate cardiac contraindications to proceeding with surgery at this time. Pt appears to be a poor candidate for long-term OAC in setting of mental status, anemia, thrombocytopenia, and multiple co-morbidities. Nothing further to add from cardiac perspective at this time. Will sign off. Recommend pt follow up in our office with Dr. Martin within 1-2 weeks of hospital discharge ([phone]). The patient has been seen in conjunction with Dr. Ben Boone who agrees with the assessment and plan of care. - Patient Problems (1) Atrial fibrillation Current Visit: Yes Status: Chronic (2) History of loop recorder Current Visit: Yes Status: Chronic (3) Acute HFrEF (heart failure with reduced ejection fraction) Current Visit: Yes Status: Acute (4) Cardiomyopathy Current Visit: Yes Status: Chronic (5) Altered mental status Current Visit: Yes Status: Acute Qualifiers: Altered mental status type: unspecified Qualified Code(s): R41.82 - Altered mental status, unspecified (6) ESRD (end stage renal disease) on dialysis Current Visit: Yes Status: Chronic (7) Diabetes Current Visit: Yes Status: Chronic (8) History of CVA (cerebrovascular accident) Current Visit: Yes Status: Chronic (9) Legally blind Current Visit: Yes Status: Chronic (10) Anemia Current Visit: Yes Status: Chronic Qualifiers: Anemia type: unspecified type Qualified Code(s): D64.9 - Anemia, unspecified (11) Thrombocytopenia Current Visit: Yes Status: Chronic (12) NSTEMI (non-ST elevated myocardial infarction) Current Visit: Yes Status: Acute (13) Lactic acidosis Current Visit: Yes Status: Acute Subjective Date of service: 01/07/19 Principal diagnosis: AMS; AFib Interval history: pt resting in bed, moaning, nonverbal. in AFib with CVR. no family at bedside. Objective Last Vital Signs Temp 98.7 F 01/07/19 08:22 Pulse 101 H 01/07/19 10:24 Resp 20 01/07/19 12:04 BP 124/64 01/07/19 10:24 Pulse Ox 100 01/07/19 03:48 - Physical Examination General: Other (moaning, nonverbal) Cardiac: Positive: irregularly irregular Lungs: Positive: Decreased Breath Sounds Neuro: Positive: Other (nonverbal) Skin: Negative: Rash Extremities: Absent: edema - Labs and Meds Cardiac Enzymes 01/07/19 Range/Units 11:16 AST 12 (5-40) units/L CBC 01/07/19 Range/Units 00:45 WBC 8.2 (4.5-11.0) K/mm3 RBC 2.81 L (3.65-5.03) M/mm3 Hgb 7.2 L (11.8-15.2) gm/dl Hct 23.2 L (35.5-45.6) % Plt Count 138 L (140-440) K/mm3 Lymph # 0.5 L (1.2-5.4) K/mm3 [place] # 0.5 (0.0-0.8) K/mm3 Eos # 0.3 (0.0-0.4) K/mm3 Baso # 0.0 (0.0-0.1) K/mm3 Comprehensive Metabolic Panel 01/07/19 Range/Units 11:16 Sodium 140 (137-145) mmol/L Potassium 4.5 (3.6-5.0) mmol/L Chloride 101.5 (98-107) mmol/L Carbon Dioxide 27 (22-30) mmol/L BUN 24 H (9-20) mg/dL Creatinine 2.2 H (0.8-1.5) mg/dL Glucose 152 H (75-100) mg/dL Calcium 9.0 (8.4-10.2) mg/dL AST 12 (5-40) units/L ALT < 5 L (7-56) units/L Alkaline Phosphatase 92 (35-129) units/L Total Protein 5.7 L (6.3-8.2) g/dL Albumin 2.0 L (3.9-5) g/dL - Imaging and Cardiology EKG: report reviewed, image reviewed Echo: report reviewed (Echo done 12/16/2018 showed EF 35-40%, mild LVH, RV systolic function mod reduced, RA mildly dilated, pulm HTN with RVSP 53mmHg, la rge pleural effusion, markedly increased RA pressure. )
--- NOTE | 2019-01-07 13:23 | Consultation ---
History of Present Illness - Reason for Consult Consult date: 01/07/19 bacteremia - History of Present Illness Patient with a history of interstitial disease on hemodialysis through a right chest wall tunneled hemodialysis catheter. The patient presents with bacteremia and will require 6 weeks of IV antibiotics. Currently no central venous access for IV antibiotics Past History Past Medical History: dialysis, ESRD, other (see HPI) Past Surgical History: Other (AV fistula in the left upper extremity, hemorrhoidectomy) Social history: other (Resides at [facility]) Family history: no significant family history Medications and Allergies Allergies Allergy/AdvReac Type Severity Reaction Status Date / Time haloperidol [From Haldol] AdvReac Unknown Verified 03/13/18 12:10 haloperidol lactate AdvReac Unknown Verified 03/13/18 12:10 [From Haldol] Home Medications Medication Instructions Recorded Confirmed Last Taken Type risperiDONE [RisperDAL] 1 mg PO QAM 03/13/18 12/27/18 Unknown History Sertraline [Zoloft] 100 mg PO QDAY 08/26/18 12/27/18 Unknown History risperiDONE [RisperDAL] 0.5 mg PO HS 08/26/18 12/27/18 Unknown History Polyethylene Glycol 3350 [Miralax 17 gm PO QDAY #30 packet 11/05/18 12/27/18 Unknown Rx 3350] Aspirin EC 81 mg PO DAILY #30 11/19/18 12/27/18 Unknown Rx Docusate Sodium [Colace CAP] 100 mg PO BID #60 11/19/18 12/27/18 Unknown Rx Folic Acid [Folvite] 1 mg PO DAILY #30 tab 11/19/18 12/27/18 Unknown Rx Famotidine [Pepcid] 20 mg PO DAILY tablet 12/08/18 12/27/18 Unknown Rx Gabapentin [Neurontin] 100 mg PO QHS capsule 12/08/18 12/27/18 Unknown Rx Metoprolol [Lopressor TAB] 50 mg PO BID 30 Days tablet 12/08/18 12/27/18 Unknown Rx Sevelamer Carbonate [Renvela] 800 mg PO TIDWM tablet 12/08/18 12/27/18 Unknown Rx hydrALAZINE [Apresoline TAB] 100 mg PO Q8HR #120 tablet 12/08/18 12/27/18 Unknown Rx Acetaminophen [Acetaminophen TAB] 650 mg PO Q12H PRN 12/15/18 12/27/18 Unknown History Amino Acids/Protein Hydrolys 30 ml PO BID 12/15/18 12/27/18 Unknown History [Pro-Stat Sugar Free Liquid] Glucagon,Human Recombinant 1 mg IJ Q15MIN PRN 12/15/18 12/27/18 Unknown History [Glucagon Emergency Kit] Insulin Aspart [NovoLOG 100 See Protocol SQ QWEEK 12/15/18 12/27/18 Unknown History UNITS/ML VIAL] Epoetin Solitario 10,000 Unit [Procrit] 10,000 unit IV UMA PRN vial 12/18/18 12/27/18 Unknown Rx Lispro Insulin [HumaLOG] 0 unit SUB-Q ACHS units 12/18/18 12/27/18 Unknown Rx risperiDONE [RisperDAL] 0.5 mg PO QHS tablet 12/18/18 12/27/18 Unknown Rx Active Meds: Active Medications Acetaminophen (Tylenol) 650 mg PO Q4H PRN PRN Reason: Pain MILD(1-3)/Fever >100.5/HILL Last Admin: 01/05/19 05:50 Dose: 650 mg Documented by: Lipase/Protease/Amylase ([place] 10,500 Unit) 1 each FEEDTUBE PRN PRN PRN Reason: For Clogged Feeding Tube Aspirin (Halfprin Ec) 81 mg PO DAILY [facility] Last Admin: 01/07/19 10:24 Dose: 81 mg Documented by: Docusate Sodium (Colace) 100 mg PO BID [facility] Last Admin: 01/07/19 10:23 Dose: Not Given Documented by: Epoetin Solitario (Procrit) 20,000 unit IV UMA PRN PRN Reason: hemodialysis Last Admin: 01/06/19 17:10 Dose: 20,000 unit Documented by: Famotidine (Pepcid) 20 mg PO DAILY [facility] Last Admin: 01/07/19 10:24 Dose: 20 mg Documented by: Folic Acid (Folvite) 1 mg PO DAILY [facility] Last Admin: 01/07/19 10:24 Dose: 1 mg Documented by: Gabapentin (Neurontin) 100 mg PO QHS [facility] Last Admin: 01/06/19 22:03 Dose: 100 mg Documented by: Heparin Sodium (Porcine) (Heparin) 5,000 unit SUB-Q Q12HR [facility] Last Admin: 01/07/19 10:25 Dose: 5,000 unit Documented by: Hydralazine HCl (Apresoline) 100 mg PO Q8HR [facility] Last Admin: 01/07/19 06:39 Dose: 100 mg Documented by: Meropenem 1,000 mg/ Sodium (Chloride) 100 mls @ 100 mls/hr IV Q24HR [facility] Last Admin: 01/07/19 10:39 Dose: 100 mls/hr Documented by: Vancomycin HCl (Vancomycin/Ns 1 Gm/250 Ml) 1 gm in 250 mls @ 167.007 mls/hr IV TuThSa [facility] Last Admin: 01/06/19 22:02 Dose: 167.007 mls/hr Documented by: Metoprolol Tartrate (Lopressor) 5 mg IV Q5MIN PRN PRN Reason: increased heart rate Last Admin: 12/29/18 05:41 Dose: 5 mg Documented by: Metoprolol Tartrate (Lopressor) 100 mg PO BID [facility] Last Admin: 01/07/19 10:24 Dose: 100 mg Documented by: Ondansetron HCl (Zofran) 4 mg IV Q8H PRN PRN Reason: Nausea And Vomiting Oxycodone/Acetaminophen (Percocet 5/325) 1 tab PO Q6H PRN PRN Reason: Pain, Moderate (4-6) Last Admin: 01/07/19 12:04 Dose: 1 tab Documented by: Polyethylene Glycol (Miralax 3350) 17 gm PO QDAY [facility] Last Admin: 01/07/19 10:23 Dose: Not Given Documented by: Risperidone (Risperdal) 0.5 mg PO QHS [facility] Last Admin: 01/06/19 22:04 Dose: 0.5 mg Documented by: Risperidone (Risperdal) 1 mg PO QAM [facility] Last Admin: 01/07/19 10:24 Dose: 1 mg Documented by: Sertraline HCl (Zoloft) 100 mg PO QDAY [facility] Last Admin: 01/07/19 10:24 Dose: 100 mg Documented by: Simple Syrup (Simple Syrup) 15 ml FEEDTUBE PRN PRN PRN Reason: Hypoglycemia Simple Syrup (Simple Syrup) 30 ml FEEDTUBE PRN PRN PRN Reason: Hypoglycemia Sodium Bicarbonate (Sodium Bicarbonate) 325 mg FEEDTUBE PRN PRN PRN Reason: For Clogged Feeding Tube Sodium Chloride (Sodium Chloride Flush Syringe 10 Ml) 10 ml IV BID [facility] Last Admin: 01/07/19 10:25 Dose: 10 ml Documented by: Sodium Chloride (Sodium Chloride Flush Syringe 10 Ml) 10 ml IV PRN PRN PRN Reason: LINE FLUSH Last Admin: 01/03/19 22:02 Dose: 10 ml Documented by: Sodium Hypochlorite (Dakin's Half Strength) 1 applic TP Q12H PRN PRN Reason: Wound Care Last Admin: 01/03/19 17:03 Dose: 1 applicatio Documented by: Review of Systems ROS unobtainable: due to mental status Exam - Constitutional Vitals: Temp Pulse Resp BP Pulse Ox 98.7 F 101 H 20 124/64 100 01/07/19 08:22 01/07/19 10:24 01/07/19 12:04 01/07/19 10:24 01/07/19 03:48 General appearance: Present: no acute distress - EENT ENT: hearing intact - Neck Neck: Present: normal ROM - Respiratory Respiratory effort: normal - Extremities Extremity abnormal: other (hemosiderin staining bilaterally) - Abdominal General gastrointestinal: Present: deferred Male genitourinary: Present: deferred - Rectal Rectal Exam: deferred Results - Labs CBC & Chem 7: 01/07/19 00:45 01/07/19 11:16 Labs: Abnormal lab results 01/06/19 01/07/19 01/07/19 Range/Units 18:26 00:09 00:45 RBC 2.81 L (3.65-5.03) M/mm3 Hgb 7.2 L (11.8-15.2) gm/dl Hct 23.2 L (35.5-45.6) % MCV 83 L (84-94) fl MCH 25 L (28-32) pg MCHC 31 L (32-34) % RDW 20.6 H (13.2-15.2) % Plt Count 138 L (140-440) K/mm3 Lymph % (Auto) 5.8 L (13.4-35.0) % Lymph # 0.5 L (1.2-5.4) K/mm3 Seg Neutrophils % 84.2 H (40.0-70.0) % BUN (9-20) mg/dL Creatinine (0.8-1.5) mg/dL Glucose (75-100) mg/dL POC Glucose 135 H 168 H (70-105) ALT (7-56) units/L Total Protein (6.3-8.2) g/dL Albumin (3.9-5) g/dL 01/07/19 01/07/19 01/07/19 Range/Units 05:52 11:16 12:03 RBC (3.65-5.03) M/mm3 Hgb (11.8-15.2) gm/dl Hct (35.5-45.6) % MCV (84-94) fl MCH (28-32) pg MCHC (32-34) % RDW (13.2-15.2) % Plt Count (140-440) K/mm3 Lymph % (Auto) (13.4-35.0) % Lymph # (1.2-5.4) K/mm3 Seg Neutrophils % (40.0-70.0) % BUN 24 H (9-20) mg/dL Creatinine 2.2 H (0.8-1.5) mg/dL Glucose 152 H (75-100) mg/dL POC Glucose 157 H 165 H (70-105) ALT < 5 L (7-56) units/L Total Protein 5.7 L (6.3-8.2) g/dL Albumin 2.0 L (3.9-5) g/dL Assessment and Plan Patient will be scheduled for placement of tunneled PICC tomorrow.
--- NOTE | 2019-01-07 14:11 | Progress Note ---
Assessment and Plan Impression * End-stage renal disease on maintenance hemodialysis * Altered mental status * Sacral decubitus * Hypokalemia * Failure to thrive * Hypophosphatemia * Malnutrition * Anemia secondary to ESRD * Hypomagnesemia Recommendations * Continue dialysis on TTS schedule for now * Use higher K bath for dialysis * Replace potassium, phosphorus and magnesium * Antibiotic therapy and local wound care as per primary team * Avoid nephrotoxins * Epogen with dialysis * Adjust diet and meds were ESRD state Subjective Date of service: 01/07/19 Principal diagnosis: AMS; AFib Interval history: resting in bed Objective - Exam Narrative Exam: General appearance: chronically ill, frail EENT: PERRL, mucous membranes moist Neck: no JVD, no thyromegaly, no carotid bruit, supple, other (IJ PermCath in place) Respiratory: Present: Clear to Ascultation Cardiology: regular, normal heart rate, S1S2, no murmurs Gastrointestinal: normal, normoactive bowel sounds, other (PEG tube in place) - Vital Signs Vital signs: Vital Signs - 12hr 01/07/19 01/07/19 01/07/19 03:48 08:22 10:00 Temperature 98.0 F 98.7 F Pulse Rate 101 H 103 H Pulse Rate [ Apical] Respiratory 18 18 Rate Blood Pressure 116/66 124/64 O2 Sat by Pulse 100 Oximetry 01/07/19 01/07/19 01/07/19 10:24 12:00 12:04 Temperature Pulse Rate 101 H Pulse Rate [ 92 H Apical] Respiratory 18 20 Rate Blood Pressure 124/64 O2 Sat by Pulse 100 Oximetry - Lab 01/07/19 00:45 01/07/19 11:16 Most recent lab results Calcium 9.0 mg/dL (8.4-10.2) 01/07/19 11:16 Phosphorus 2.90 mg/dL (2.5-4.5) D 01/05/19 04:56 Magnesium 2.00 mg/dL (1.7-2.3) 01/05/19 04:56 Medications & Allergies - Medications Allergies/Adverse Reactions: Allergies haloperidol [From Haldol] Adverse Reaction (Verified 03/13/18 12:10) Unknown haloperidol lactate [From Haldol] Adverse Reaction (Verified 03/13/18 12:10) Unknown Home Medications: Home Medications Medication Instructions Recorded Confirmed Last Taken Type risperiDONE [RisperDAL] 1 mg PO QAM 03/13/18 12/27/18 Unknown History Sertraline [Zoloft] 100 mg PO QDAY 08/26/18 12/27/18 Unknown History risperiDONE [RisperDAL] 0.5 mg PO HS 08/26/18 12/27/18 Unknown History Polyethylene Glycol 3350 [Miralax 17 gm PO QDAY #30 packet 11/05/18 12/27/18 Unknown Rx 3350] Aspirin EC 81 mg PO DAILY #30 11/19/18 12/27/18 Unknown Rx Docusate Sodium [Colace CAP] 100 mg PO BID #60 11/19/18 12/27/18 Unknown Rx Folic Acid [Folvite] 1 mg PO DAILY #30 tab 11/19/18 12/27/18 Unknown Rx Famotidine [Pepcid] 20 mg PO DAILY tablet 12/08/18 12/27/18 Unknown Rx Gabapentin [Neurontin] 100 mg PO QHS capsule 12/08/18 12/27/18 Unknown Rx Metoprolol [Lopressor TAB] 50 mg PO BID 30 Days tablet 12/08/18 12/27/18 Unknown Rx Sevelamer Carbonate [Renvela] 800 mg PO TIDWM tablet 12/08/18 12/27/18 Unknown Rx hydrALAZINE [Apresoline TAB] 100 mg PO Q8HR #120 tablet 12/08/18 12/27/18 Unknown Rx Acetaminophen [Acetaminophen TAB] 650 mg PO Q12H PRN 12/15/18 12/27/18 Unknown History Amino Acids/Protein Hydrolys 30 ml PO BID 12/15/18 12/27/18 Unknown History [Pro-Stat Sugar Free Liquid] Glucagon,Human Recombinant 1 mg IJ Q15MIN PRN 12/15/18 12/27/18 Unknown History [Glucagon Emergency Kit] Insulin Aspart [NovoLOG 100 See Protocol SQ QWEEK 12/15/18 12/27/18 Unknown History UNITS/ML VIAL] Epoetin Solitario 10,000 Unit [Procrit] 10,000 unit IV UMA PRN vial 12/18/18 12/27/18 Unknown Rx Lispro Insulin [HumaLOG] 0 unit SUB-Q ACHS units 12/18/18 12/27/18 Unknown Rx risperiDONE [RisperDAL] 0.5 mg PO QHS tablet 12/18/18 12/27/18 Unknown Rx Active Medications: Generic Name Dose Route Start Last Admin Trade Name Freq PRN Reason Stop Dose Admin Acetaminophen 650 mg 12/26/18 21:40 01/05/19 05:50 Tylenol PO 650 mg Q4H PRN Administration Pain MILD(1-3)/Fever >100.5/HILL Lipase/Protease/Amylase 1 each 01/03/19 13:07 Pancreaze 10,500 Unit FEEDTUBE PRN PRN For Clogged Feeding Tube Aspirin 81 mg 12/27/18 10:00 01/07/19 10:24 Halfprin Ec PO 81 mg DAILY [facility] Administration Docusate Sodium 100 mg 12/26/18 22:00 01/07/19 10:23 Colace PO Not Given BID [facility] Epoetin Solitario 20,000 unit 01/05/19 11:03 01/06/19 17:10 Procrit IV 20,000 unit UMA PRN Administration hemodialysis Famotidine 20 mg 12/27/18 10:00 01/07/19 10:24 Pepcid PO 20 mg DAILY [facility] Administration Folic Acid 1 mg 12/27/18 10:00 01/07/19 10:24 Folvite PO 1 mg DAILY [facility] Administration Gabapentin 100 mg 12/26/18 22:00 01/06/19 22:03 Neurontin PO 100 mg QHS [facility] Administration Heparin Sodium (Porcine) 5,000 unit 12/26/18 22:00 01/07/19 10:25 Heparin SUB-Q 5,000 unit Q12HR [facility] Administration Hydralazine HCl 100 mg 12/26/18 22:00 01/07/19 06:39 Apresoline PO 100 mg Q8HR [facility] Administration Meropenem 1,000 mg/ Sodium 100 mls @ 100 mls/hr 01/05/19 11:00 01/07/19 10:39 Chloride IV 100 mls/hr Q24HR [facility] Administration Vancomycin HCl 1 gm in 250 mls @ 167.007 mls/hr 01/06/19 20:00 01/06/19 22:02 Vancomycin/Ns 1 Gm/250 Ml IV 167.007 mls/hr TuThSa [facility] Administration Metoprolol Tartrate 5 mg 12/27/18 18:55 12/29/18 05:41 Lopressor IV 5 mg Q5MIN PRN Administration increased heart rate Metoprolol Tartrate 100 mg 12/31/18 22:00 01/07/19 10:24 Lopressor PO 100 mg BID [facility] Administration Ondansetron HCl 4 mg 12/26/18 21:40 Zofran IV Q8H PRN Nausea And Vomiting Oxycodone/Acetaminophen 1 tab 01/05/19 08:30 01/07/19 12:04 Percocet 5/325 PO 1 tab Q6H PRN Administration Pain, Moderate (4-6) Polyethylene Glycol 17 gm 12/27/18 10:00 01/07/19 10:23 Miralax 3350 PO Not Given QDAY [facility] Risperidone 0.5 mg 12/26/18 22:00 01/06/19 22:04 Risperdal PO 0.5 mg QHS [facility] Administration Risperidone 1 mg 12/27/18 10:00 01/07/19 10:24 Risperdal PO 1 mg QAM [facility] Administration Sertraline HCl 100 mg 12/27/18 10:00 01/07/19 10:24 Zoloft PO 100 mg QDAY [facility] Administration Simple Syrup 15 ml 01/03/19 13:07 Simple Syrup FEEDTUBE PRN PRN Hypoglycemia Simple Syrup 30 ml 01/03/19 13:07 Simple Syrup FEEDTUBE PRN PRN Hypoglycemia Sodium Bicarbonate 325 mg 01/03/19 13:07 Sodium Bicarbonate FEEDTUBE PRN PRN For Clogged Feeding Tube Sodium Chloride 10 ml 12/26/18 22:00 01/07/19 10:25 Sodium Chloride Flush Syringe 10 Ml IV 10 ml BID [facility] Administration Sodium Chloride 10 ml 12/26/18 21:40 01/03/19 22:02 Sodium Chloride Flush Syringe 10 Ml IV 10 ml PRN PRN Administration LINE FLUSH Sodium Hypochlorite 1 applic 01/01/19 15:31 01/03/19 17:03 Dakin's Half Strength TP 1 applicatio Q12H PRN Administration Wound Care
[2019-01-07] MEDS: NEURONTIN PO SCH (23:44)
[2019-01-08] MEDS: APRESOLINE PO SCH ×3 (06:56→23:18)
[2019-01-08] MEDS ORDERED: NACL 0.9% 100 ML IV PRN (08:31)
--- NOTE | 2019-01-08 09:25 | Progress Note ---
Assessment and Plan Cultures: Blood cultures 12/26/2018 no growth today. Blood cultures 01/01/2019 no growth today. Wound cultures 01/02/2019 ESBL Kleb, MDR Ecoli and E raffinosus resistant to penicillin. Assessment: 63 y/o male with history of ESRD on HD, HTN, CAD S/P CABG, CVA, DM, Atrial Fib, Anemia, Hyperparathyroidism, Hypocalcemia, schizophrenia; well known to ID service from previous admission, readmitted on 12/26/2018 due to altered sensorium and decreased responsiveness for 48 hour and decreased PO intake for 2 weeks. 1) Severe Sepsis: Improved. No fevers.Still tachycardia. Etiology most likely unstagable necrotic sacral decubitus. 2) Unstagable necrotic sacral decubitus: s/p OR on 01/01/2019 for open excisional debridement of necrotic and infected sacral wound noted a large amount of necrotic tissue debrided and two abscess cavities at the caudad portion of the wound with a copious amount of purulent drainage which was drained. Wound cultures 01/02/2019 ESBL Kleb, MDR Ecoli - this will require treatment with meropenem via tunneled cathether. (meropenem cannot be given HD) Wound also grew E raffinosus - this will require treatment with Vancomycin post HD. Surgery plans for diverting colostomy in 2 weeks. 3) History of MSSE septicemia + MRSA foot infection. Bone scan POSITIVE for osteomyelitis 4th and 5th MT head. Treated with IV vancomcyin for total of 6 we eks until 05/05/18. 4) History of septic shock from vivi HAP vs aspiration pneumonia treated with c efepime and flagyl for 7 days. 5) Acute on chronic encephalopathy: from infection CT head chronic changes and ?mastoiditis. Recommendations: - continue meropenem 1 gm every 24 hours, D4 - continue vancomycin renally adjusted, D10 - contact isolation -Anticipate discharge on Meropenem 1 gm IV every 24 hours via tunneled catheter and Vancomycin 1 gm post HD Saturday, and Saturday for 6 weeks ending 02-16-19 -order placed with case management - tunneled PICC placement today [facility] M: [phone] O:[phone] Subjective Date of service: 01/08/19 Principal diagnosis: AMS; AFib Interval history: Patient seen and examined. Asleep. Not easy to arouse. nonverbal, calm. Objective - Exam Narrative Exam: General appearance: somnolent in NAD Eyes: left eye enucleation with prosthesis HENT: Atraumatic; oropharynx clear limited Neck: Trachea midline; supple, no thyromegaly or lymphadenopathy Lungs: CTA, with normal respiratory effort and no intercostal retractions CV: RRR no murmur Abdomen: Soft, non-tender; +PEG Extremities: no edema, cyanosis Skin: sacral dec with surgical dressings Psych: calm Neuro: somnolent - Constitutional Vitals: Vital Signs Temp Pulse Resp BP Pulse Ox 98.2 F 95 H 20 127/68 100 01/08/19 06:19 01/08/19 06:19 01/08/19 06:19 01/08/19 06:19 01/08/19 06:19 Temperature -Last 24 Hours Temperature 98.2 F - Labs CBC & Chem 7: 01/07/19 00:45 01/07/19 11:16 Labs: Abnormal lab results 01/07/19 01/07/19 01/07/19 Range/Units 11:16 12:03 18:33 BUN 24 H (9-20) mg/dL Creatinine 2.2 H (0.8-1.5) mg/dL Glucose 152 H (75-100) mg/dL POC Glucose 165 H 169 H (70-105) ALT < 5 L (7-56) units/L Total Protein 5.7 L (6.3-8.2) g/dL Albumin 2.0 L (3.9-5) g/dL
[2019-01-08] MEDS: COLACE PO SCH ×2 (10:38→23:18)
[2019-01-08] MEDS: LOPRESSOR PO SCH ×2 (10:39→23:17)
[2019-01-08] MEDS: MIRALAX 3350 PO SCH (10:40)
--- NOTE | 2019-01-08 11:06 | Progress Note ---
Assessment and Plan - Patient Problems (1) CHF (congestive heart failure) Current Visit: Yes Status: Acute Qualifiers: Heart failure type: unspecified Heart failure chronicity: acute on chronic Qualified Code(s): I50.9 - Heart failure, unspecified Plan to address problem: Chronic Congestive heart failure: continue current medications. (2) ESRD (end stage renal disease) Current Visit: Yes Status: Acute Plan to address problem: END-STAGE RENAL DISEASE. DIALYSIS ACCESS rIGHT tunnel dialysis catheter continue hemodialysis Saturday, , Saturday (3) Anemia in ESRD (end-stage renal disease) Current Visit: Yes Status: Chronic Plan to address problem: moderate Anemia due to chronic kidney disease monitor cbc (4) Hypotension Current Visit: No Status: Acute Qualifiers: Hypotension type: unspecified hypotension type Qualified Code(s): I95.9 - Hypotension, unspecified Plan to address problem: Hypotension: ultrafiltration as tolerated with HD . Midodrine if able to take PO. Subjective Principal diagnosis: AMS; AFib Interval history: 63 year old with medical history significant for HTN, ESRD on hemodialysis TTS via a Right IJ Perm cath . with infected decubitus ulcers . Patient seen today hemodialysis later today. Denies any orthopnea or PND. Objective - Vital Signs Vital signs: Vital Signs - 12hr 01/07/19 01/08/19 01/08/19 23:44 00:00 06:19 Temperature 98.2 F Pulse Rate 97 H 95 H Respiratory 20 20 Rate Blood Pressure 113/62 127/68 O2 Sat by Pulse 100 100 Oximetry - General Appearance General appearance: appears stated age, obese, frail EENT: ATNC, mucous membranes moist, other (artificial eye. ) Neck: no JVD Respiratory: Present: Clear to Ascultation Cardiology: regular, S1S2 Gastrointestinal: normal, normoactive bowel sounds Integumentary: no rash Neurologic: no focal deficit, alert and oriented x3, CN 3-12 intact Psychiatric: mood/affect appropriate - Lab 01/07/19 00:45 01/07/19 11:16 Most recent lab results Calcium 9.0 mg/dL (8.4-10.2) 01/07/19 11:16 Phosphorus 2.90 mg/dL (2.5-4.5) D 01/05/19 04:56 Magnesium 2.00 mg/dL (1.7-2.3) 01/05/19 04:56 - Imaging Chest x-ray: image reviewed Medications & Allergies - Medications Allergies/Adverse Reactions: Allergies haloperidol [From Haldol] Adverse Reaction (Verified 03/13/18 12:10) Unknown haloperidol lactate [From Haldol] Adverse Reaction (Verified 03/13/18 12:10) Unknown Home Medications: Home Medications Medication Instructions Recorded Confirmed Last Taken Type risperiDONE [RisperDAL] 1 mg PO QAM 03/13/18 12/27/18 Unknown History Sertraline [Zoloft] 100 mg PO QDAY 08/26/18 12/27/18 Unknown History risperiDONE [RisperDAL] 0.5 mg PO HS 08/26/18 12/27/18 Unknown History Polyethylene Glycol 3350 [Miralax 17 gm PO QDAY #30 packet 11/05/18 12/27/18 Unknown Rx 3350] Aspirin EC 81 mg PO DAILY #30 11/19/18 12/27/18 Unknown Rx Docusate Sodium [Colace CAP] 100 mg PO BID #60 11/19/18 12/27/18 Unknown Rx Folic Acid [Folvite] 1 mg PO DAILY #30 tab 11/19/18 12/27/18 Unknown Rx Famotidine [Pepcid] 20 mg PO DAILY tablet 12/08/18 12/27/18 Unknown Rx Gabapentin [Neurontin] 100 mg PO QHS capsule 12/08/18 12/27/18 Unknown Rx Metoprolol [Lopressor TAB] 50 mg PO BID 30 Days tablet 12/08/18 12/27/18 Unknown Rx Sevelamer Carbonate [Renvela] 800 mg PO TIDWM tablet 12/08/18 12/27/18 Unknown Rx hydrALAZINE [Apresoline TAB] 100 mg PO Q8HR #120 tablet 12/08/18 12/27/18 Unknown Rx Acetaminophen [Acetaminophen TAB] 650 mg PO Q12H PRN 12/15/18 12/27/18 Unknown History Amino Acids/Protein Hydrolys 30 ml PO BID 12/15/18 12/27/18 Unknown History [Pro-Stat Sugar Free Liquid] Glucagon,Human Recombinant 1 mg IJ Q15MIN PRN 12/15/18 12/27/18 Unknown History [Glucagon Emergency Kit] Insulin Aspart [NovoLOG 100 See Protocol SQ QWEEK 12/15/18 12/27/18 Unknown History UNITS/ML VIAL] Epoetin Solitario 10,000 Unit [Procrit] 10,000 unit IV UMA PRN vial 12/18/18 Unknown Rx Lispro Insulin [HumaLOG] 0 unit SUB-Q ACHS units 12/18/18 12/27/18 Unknown Rx risperiDONE [RisperDAL] 0.5 mg PO QHS tablet 12/18/18 12/27/18 Unknown Rx Active Medications: Generic Name Dose Route Start Last Admin Trade Name Freq PRN Reason Stop Dose Admin Acetaminophen 650 mg 12/26/18 21:40 01/05/19 05:50 Tylenol PO 650 mg Q4H PRN Administration Pain MILD(1-3)/Fever >100.5/HILL Lipase/Protease/Amylase 1 each 01/03/19 13:07 Pancreaze 10,500 Unit FEEDTUBE PRN PRN For Clogged Feeding Tube Aspirin 81 mg 12/27/18 10:00 01/07/19 10:24 Halfprin Ec PO 81 mg DAILY SANCHEZ Administration Docusate Sodium 100 mg 12/26/18 22:00 01/07/19 23:43 Colace PO Not Given BID SANCHEZ Epoetin Solitario 20,000 unit 01/05/19 11:03 01/06/19 17:10 Procrit IV 20,000 unit UMA PRN Administration hemodialysis Famotidine 20 mg 12/27/18 10:00 01/07/19 10:24 Pepcid PO 20 mg DAILY SANCHEZ Administration Folic Acid 1 mg 12/27/18 10:00 01/07/19 10:24 Folvite PO 1 mg DAILY SANCHEZ Administration Gabapentin 100 mg 12/26/18 22:00 01/07/19 23:44 Neurontin PO 100 mg QHS SANCHEZ Administration Heparin Sodium (Porcine) 5,000 unit 12/26/18 22:00 01/07/19 23:44 Heparin SUB-Q 5,000 unit Q12HR SANCHEZ Administration Hydralazine HCl 100 mg 12/26/18 22:00 01/08/19 06:56 Apresoline PO Not Given Q8HR SANCHEZ Meropenem 1,000 mg/ Sodium 100 mls @ 100 mls/hr 01/05/19 11:00 01/07/19 10:39 Chloride IV 02/16/19 10:59 100 mls/hr Q24HR SANCHEZ Administration Vancomycin HCl 1 gm in 250 mls @ 167.007 mls/hr 01/06/19 20:00 01/06/19 22:02 Vancomycin/Ns 1 Gm/250 Ml IV 02/17/19 21:30 167.007 mls/hr TuThSa SANCHEZ Administration Sodium Chloride 100 mls @ 999 mls/hr 01/08/19 08:31 Nacl 0.9% IV UMA PRN Hypotension Metoprolol Tartrate 5 mg 12/27/18 18:55 12/29/18 05:41 Lopressor IV 5 mg Q5MIN PRN Administration increased heart rate Metoprolol Tartrate 100 mg 12/31/18 22:00 01/07/19 23:44 Lopressor PO 100 mg BID SANCHEZ Administration Ondansetron HCl 4 mg 12/26/18 21:40 Zofran IV Q8H PRN Nausea And Vomiting Oxycodone/Acetaminophen 1 tab 01/05/19 08:30 01/07/19 18:41 Percocet 5/325 PO 1 tab Q6H PRN Administration Pain, Moderate (4-6) Polyethylene Glycol 17 gm 12/27/18 10:00 01/07/19 10:23 Miralax 3350 PO Not Given QDAY SANCHEZ Risperidone 0.5 mg 12/26/18 22:00 01/07/19 23:44 Risperdal PO 0.5 mg QHS SANCHEZ Administration Risperidone 1 mg 12/27/18 10:00 01/07/19 10:24 Risperdal PO 1 mg QAM SANCHEZ Administration Sertraline HCl 100 mg 12/27/18 10:00 01/07/19 10:24 Zoloft PO 100 mg QDAY SANCHEZ Administration Simple Syrup 15 ml 01/03/19 13:07 Simple Syrup FEEDTUBE PRN PRN Hypoglycemia Simple Syrup 30 ml 01/03/19 13:07 Simple Syrup FEEDTUBE PRN PRN Hypoglycemia Sodium Bicarbonate 325 mg 01/03/19 13:07 Sodium Bicarbonate FEEDTUBE PRN PRN For Clogged Feeding Tube Sodium Chloride 10 ml 12/26/18 22:00 01/07/19 23:45 Sodium Chloride Flush Syringe 10 Ml IV 10 ml BID SANCHEZ Administration Sodium Chloride 10 ml 12/26/18 21:40 01/03/19 22:02 Sodium Chloride Flush Syringe 10 Ml IV 10 ml PRN PRN Administration LINE FLUSH Sodium Hypochlorite 1 applic 01/01/19 15:31 01/03/19 17:03 Dakin's Half Strength TP 1 applicatio Q12H PRN Administration Wound Care
[2019-01-08] MEDS ORDERED: HEPARIN/NS 5000 UNIT/500ML(CATH LAB) 500 ML IR ONE (13:52)
[2019-01-08] MEDS ORDERED: ANCEF/STERILE WATER 2 GM/20 ML 2 GM/20 ML SYRINGE IV ONE (13:53)
[2019-01-08] MEDS ORDERED: NACL 0.9% 500 ML 500 ML ONE (13:55)
[2019-01-08] MEDS: VERSED ONE ×3 (14:20→14:29)
[2019-01-08] MEDS: SUBLIMAZE ONE ×3 (14:20→14:31)
[2019-01-08] MEDS: XYLOCAINE 1%/ EPI 1:100,000 INFILTRATI ONE ×2 (14:32→14:38)
--- NOTE | 2019-01-08 15:22 | Operative Report ---
Operative Report Operative Report: EXAM: 1. Ultrasound-guided puncture of the left internal jugular vein 2. Fluoroscopic-guided placement of a left internal jugular tunneled non-cuffed smallbore dual-lumen catheter. DATE: 01/08/19 INDICATION: Infection requiring long-term antibiotics MEDICATIONS: Please see nursing report for full details. DEVICES: 5 Nigerian dual-lumen power PICC catheter REGISTERED CLINICAL DIETITIAN: MIRANDA BHANDARI MD CONTRAST: None PROCEDURE: The risks, benefits, and alternatives were discussed and informed consent was obtained. The patient was transported to the angiography suite in satisfactory/stable condition and was transported onto the angiography table. The patient's left internal jugular vein was assessed with ultrasound and determined to be patent prior to procedure. The patient was prepped and draped in a sterile fashion. The puncture site was anesthetized. Under sonographic guidance, the left internal jugular vein was punctured with a 21-gauge micropuncture needle and a 0.018 inch wire was advanced into the inferior vena cava. A suitable exit site was identified on the patient's chest inferior and lateral to the venotomy. The site was anesthetized with local anesthetic and the track was anesthetized. Dermatotomy was made. The 5 Nigerian dual-lumen smallbore catheter was tunneled between the dermatotomy to the venotomy with the assistance of a tunneler. Over 0.018 inch wire, the transitional dilator was exchanged for a 5 Nigerian peel-away sheath. The wire was used to uday intravascular distance and removed. The catheter was cut to appropriate size. The catheter was advanced through the peel-away sheath and positioned centrally under fluoroscopic guidance. The peel-away sheath was removed. 4-0 Vicryl suture was used to close the venotomy and Dermabond was then applied. 2-0 Ethilon suture was used to secure the catheter at the dermatotomy. The catheter was charged with heparinized saline. Sterile dressing and biopatch applied. The patient was transferred from the angiography suite back to the floor in stable condition. FINDINGS: 1. Excellent flow was obtained through the dual lumen smallbore tunneled catheter. 2. The catheter tip is in the right atrium. IMPRESSION: 1. Successful ultrasound and fluoroscopically guided placement of a left internal jugular tunneled non-cuffed dual-lumen catheter.
--- NOTE | 2019-01-08 16:43 | Progress Note ---
Assessment and Plan Assessment and plan: Patient is a 63-year-old -[place] man from [facility] with a plethora of co-morbidities including blindness, CVA, CHF, PPM/ICD, loop recorder since 2013 that is MRI compatible, IDDM type 2, sepsis left foot ulcer, afib, ESRD with complications on HD TTS, hypertension, AOCD and GERD who presented to [facility] with altered sensorium and decreased responsiveness. Decreased responsive and not eating at all for 2 days. Patient has failure to thrive, altered mentation and weight loss of 20 pounds since 12/08/2018. Severe Sepsis due to Necrotizing Unstagable sacral decubitus ulcer s/p OR on 01/01/2019 for open excisional debridement of necrotic and infected sacral wound noted a large amount of necrotic tissue debrided and two abscess cavities at the caudad portion of the wound with a copious amount of purulent drainage which was drained. Wound cultures 01/02/2019 ESBL Kleb, MDR Ecoli and E raffinosus resistant to penicillin: On meropenam and vanc per ID. Consult Vascular surgery for central line placement, planned for diverting colostomy, family has agreed, awaiting cardiology preop eval Acute metabolic encephalopathy due to the above Acute systolic exacerbation of CHF (congestive heart failure): treat via Ultrafiltration during HD Afib with RVR: rate control only and optimize meds per Cardiology ESRD needing dialysis: Nephology is managing, Continue hemo dialysis Insulin dependent diabetes mellitus, A1c is 4.2: insulin was dc Severe malnutrition with FTT: 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, cont oral diet, sociology professor input appreciated, PEG tube placed on 01/02/19 Hypertension: Continue antihypertensives h/o Peripheral neuropathy: Continue gabapentin h/o Anemia: Continue epoetin Elevated troponin, Secondary to end-stage renal disease, chf and afib, Cardiology input appreciated DVT prophylaxis On heparin and GI prophylaxis re-consulted Cardiology for pre-op evaluation d/w Dr. Briggs, needs 2 weeks from PEG placement to perform diverting colostomy, should be done next week d/w Dr. Villela, Vascular surgery placed central line placement for Merem, 01/08/19 monitor bmp and cbc closely. hemoglobin down to 7.2, not sure why my labs not done today, asked Charge Nurse. History Interval history: Patient was seen and examined. Follow-up on current diagnosis Sacral decubitus ulcer. No overnight events reported to me. Imaging, nursing note, chart, labs and old chart reviewed. Hospitalist Physical - Physical exam Narrative exam: Gen: severely chronically ill appearing, semi-comatose, mouth open, head flexed, eyes closed, unresponsive HEENT: NCAT, >right eye matted shut, OP dried out with mouth open but good oral care done. Neck: supple, no adenopathy, no thyromegaly, no JVD CVS/Heart: irregular irregular, normal S1S2, pulses present bilaterally Chest/Lungs: poor air entry, Symmetrical chest expansion, good air entry bilaterally GI/Abdomen: soft, peg in place, NTND, good bowel sounds, no guarding or rebound /Bladder: no suprapubic tenderness, no CVA or paraspinal tenderness Extermity/Skin: atrophic contracted legs MSK: doesn't follow commands Neuro: doesn't follow commands Psych: unresponsive - Constitutional Vitals: Temp Pulse Resp BP Pulse Ox 98.0 F 101 H 20 130/68 100 01/08/19 13:41 01/08/19 13:41 01/08/19 13:41 01/08/19 13:41 01/08/19 06:19 General appearance: Present: no acute distress Results - Labs CBC & Chem 7: 01/07/19 00:45 01/07/19 11:16 Labs: Laboratory Last Values WBC 8.2 K/mm3 (4.5-11.0) 01/07/19 00:45 RBC 2.81 M/mm3 (3.65-5.03) L 01/07/19 00:45 Hgb 7.2 gm/dl (11.8-15.2) L 01/07/19 00:45 Hct 23.2 % (35.5-45.6) L 01/07/19 00:45 MCV 83 fl (84-94) L 01/07/19 00:45 MCH 25 pg (28-32) L 01/07/19 00:45 MCHC 31 % (32-34) L 01/07/19 00:45 RDW 20.6 % (13.2-15.2) H 01/07/19 00:45 Plt Count 138 K/mm3 (140-440) L 01/07/19 00:45 Lymph % (Auto) 5.8 % (13.4-35.0) L 01/07/19 00:45 Hartley % (Auto) 6.0 % (0.0-7.3) 01/07/19 00:45 Eos % (Auto) 3.8 % (0.0-4.3) 01/07/19 00:45 Baso % (Auto) 0.2 % (0.0-1.8) 01/07/19 00:45 Lymph # 0.5 K/mm3 (1.2-5.4) L 01/07/19 00:45 Hartley # 0.5 K/mm3 (0.0-0.8) 01/07/19 00:45 Eos # 0.3 K/mm3 (0.0-0.4) 01/07/19 00:45 Baso # 0.0 K/mm3 (0.0-0.1) 01/07/19 00:45 Add Manual Diff Complete 01/03/19 17:16 Total Counted 100 01/03/19 17:16 Seg Neutrophils % 84.2 % (40.0-70.0) H 01/07/19 00:45 Seg Neuts % (Manual) 96.0 % (40.0-70.0) H 01/03/19 17:16 0 % 01/03/19 17:16 2.0 % (13.4-35.0) L 01/03/19 17:16 Reactive Lymphs % (Man) 0 % 01/03/19 17:16 2.0 % (0.0-7.3) 01/03/19 17:16 0 % (0.0-4.3) 01/03/19 17:16 0 % (0.0-1.8) 01/03/19 17:16 0 % 01/03/19 17:16 0 % 01/03/19 17:16 0 % 01/03/19 17:16 0 % 01/03/19 17:16 Nucleated RBC % Not Reportable 01/03/19 17:16 Seg Neutrophils # 6.9 K/mm3 (1.8-7.7) 01/07/19 00:45 Seg Neutrophils # Man 10.8 K/mm3 (1.8-7.7) H 01/03/19 17:16 Band Neutrophils # 0.0 K/mm3 01/03/19 17:16 0.2 K/mm3 (1.2-5.4) L 01/03/19 17:16 Abs React Lymphs (Man) 0.0 K/mm3 01/03/19 17:16 0.2 K/mm3 (0.0-0.8) 01/03/19 17:16 0.0 K/mm3 (0.0-0.4) 01/03/19 17:16 0.0 K/mm3 (0.0-0.1) 01/03/19 17:16 0.0 K/mm3 01/03/19 17:16 0.0 K/mm3 01/03/19 17:16 0.0 K/mm3 01/03/19 17:16 Blast Cells # 0.0 K/mm3 01/03/19 17:16 WBC Morphology Not Reportable 01/03/19 17:16 Hypersegmented Neuts Not Reportable 01/03/19 17:16 Hyposegmented Neuts Not Reportable 01/03/19 17:16 Hypogranular Neuts Not Reportable 01/03/19 17:16 Not Reportable 01/03/19 17:16 Not Reportable 01/03/19 17:16 Not Reportable 01/03/19 17:16 Not Reportable 01/03/19 17:16 Not Reportable 01/03/19 17:16 Not Reportable 01/03/19 17:16 Consistent w auto 01/03/19 17:16 Not Reportable 01/03/19 17:16 Plt Clumps, EDTA Not Reportable 01/03/19 17:16 Not Reportable 01/03/19 17:16 Not Reportable 01/03/19 17:16 Not Reportable 01/03/19 17:16 Plt Morphology Comment Not Reportable 01/03/19 17:16 RBC Morphology Not Reportable 01/03/19 17:16 Dimorphic RBCs Not Reportable 01/03/19 17:16 Not Reportable 01/03/19 17:16 1+ 01/03/19 17:16 Few 01/03/19 17:16 1+ 01/03/19 17:16 Not Reportable 01/03/19 17:16 Not Reportable 01/03/19 17:16 Not Reportable 01/03/19 17:16 Not Reportable 01/03/19 17:16 Not Reportable 01/03/19 17:16 Few 01/03/19 17:16 Not Reportable 01/03/19 17:16 Few 01/03/19 17:16 Not Reportable 01/03/19 17:16 Not Reportable 01/03/19 17:16 Not Reportable 01/03/19 17:16 Not Reportable 01/03/19 17:16 Not Reportable 01/03/19 17:16 Not Reportable 01/03/19 17:16 Not Reportable 01/03/19 17:16 Acanthocytes (Spur) Not Reportable 01/03/19 17:16 Rouleaux Not Reportable 01/03/19 17:16 Not Reportable 01/03/19 17:16 Not Reportable 01/03/19 17:16 Not Reportable 01/03/19 17:16 Not Reportable 01/03/19 17:16 Hem Pathologist Commnt No 01/03/19 17:16 PT 18.0 Sec. (12.2-14.9) H 01/02/19 05:39 INR 1.39 (0.87-1.13) H 01/02/19 05:39 Sodium 140 mmol/L (137-145) 01/07/19 11:16 Potassium 4.5 mmol/L (3.6-5.0) 01/07/19 11:16 Chloride 101.5 mmol/L (98-107) 01/07/19 11:16 Carbon Dioxide 27 mmol/L (22-30) 01/07/19 11:16 16 mmol/L 01/07/19 11:16 BUN 24 mg/dL (9-20) H 01/07/19 11:16 2.2 mg/dL (0.8-1.5) H 01/07/19 11:16 Estimated GFR 37 ml/min 01/07/19 11:16 11 % 01/07/19 11:16 Glucose 152 mg/dL (75-100) H 01/07/19 11:16 POC Glucose 169 (70-105) H 01/07/19 18:33 < 4.2 % (4-6) 12/26/18 17:12 Lactic Acid 1.10 mmol/L (0.7-2.0) 12/27/18 07:04 Calcium 9.0 mg/dL (8.4-10.2) 01/07/19 11:16 Phosphorus 2.90 mg/dL (2.5-4.5) D 01/05/19 04:56 Magnesium 2.00 mg/dL (1.7-2.3) 01/05/19 04:56 0.20 mg/dL (0.1-1.2) 01/07/19 11:16 AST 12 units/L (5-40) 01/07/19 11:16 ALT < 5 units/L (7-56) L 01/07/19 11:16 92 units/L (35-129) 01/07/19 11:16 29 units/L (55-170) L 12/26/18 17:12 0.158 ng/mL (0.00-0.029) H* 12/26/18 17:12 5.7 g/dL (6.3-8.2) L 01/07/19 11:16 2.0 g/dL (3.9-5) L 01/07/19 11:16 0.5 % 01/07/19 11:16 Triglycerides 75 mg/dL (2-149) 12/26/18 17:12 Cholesterol 109 mg/dL (50-199) 12/26/18 17:12 43 mg/dL (50-130) L 12/26/18 17:12 41 mg/dL (40-59) 12/26/18 17:12 2.65 % 12/26/18 17:12 PTH Intact 178.6 pg/mL (15-65) H 01/01/19 17:32 Random Vancomycin 9.1 ug/mL (0-40.0) 01/02/19 05:39 Active Medications - Current Medications Current Medications: Generic Name Dose Route Start Last Admin Trade Name Freq PRN Reason Stop Dose Admin Acetaminophen 650 mg 12/26/18 21:40 01/05/19 05:50 Tylenol PO 650 mg Q4H PRN Administration Pain MILD(1-3)/Fever >100.5/HILL Lipase/Protease/Amylase 1 each 01/03/19 13:07 Pancrejewel Barrientos 10,500 Unit FEEDTUBE PRN PRN For Clogged Feeding Tube Aspirin 81 mg 12/27/18 10:00 01/07/19 10:24 Halfprin Ec PO 81 mg DAILY SANCHEZ Administration Docusate Sodium 100 mg 12/26/18 22:00 01/07/19 23:43 Colace PO Not Given BID [facility] Epoetin Solitario 20,000 unit 01/05/19 11:03 01/06/19 17:10 Procrit IV 20,000 unit UMA PRN Administration hemodialysis Famotidine 20 mg 12/27/18 10:00 01/07/19 10:24 Pepcid PO 20 mg DAILY SANCHEZ Administration Folic Acid 1 mg 12/27/18 10:00 01/07/19 10:24 Folvite PO 1 mg DAILY SANCHEZ Administration Gabapentin 100 mg 12/26/18 22:00 01/07/19 23:44 Neurontin PO 100 mg QHS SANCHEZ Administration Heparin Sodium (Porcine) 5,000 unit 12/26/18 22:00 01/07/19 23:44 Heparin SUB-Q 5,000 unit Q12HR SANCHEZ Administration Hydralazine HCl 100 mg 12/26/18 22:00 01/08/19 06:56 Apresoline PO Not Given Q8HR [facility] Meropenem 1,000 mg/ Sodium 100 mls @ 100 mls/hr 01/05/19 11:00 01/07/19 10:39 Chloride IV 02/16/19 10:59 100 mls/hr Q24HR SANCHEZ Administration Vancomycin HCl 1 gm in 250 mls @ 167.007 mls/hr 01/06/19 20:00 01/06/19 22:02 Vancomycin/Ns 1 Gm/250 Ml IV 02/17/19 21:30 167.007 mls/hr TuThSa [facility] Administration Sodium Chloride 100 mls @ 999 mls/hr 01/08/19 08:31 Nacl 0.9% IV UMA PRN Hypotension Metoprolol Tartrate 5 mg 12/27/18 18:55 12/29/18 05:41 Lopressor IV 5 mg Q5MIN PRN Administration increased heart rate Metoprolol Tartrate 100 mg 12/31/18 22:00 01/07/19 23:44 Lopressor PO 100 mg BID SANCHEZ Administration Ondansetron HCl 4 mg 12/26/18 21:40 Zofran IV Q8H PRN Nausea And Vomiting Oxycodone/Acetaminophen 1 tab 01/05/19 08:30 01/07/19 18:41 Percocet 5/325 PO 1 tab Q6H PRN Administration Pain, Moderate (4-6) Polyethylene Glycol 17 gm 12/27/18 10:00 01/07/19 10:23 Miralax 3350 PO Not Given QDAY SANCHEZ Risperidone 0.5 mg 12/26/18 22:00 01/07/19 23:44 Risperdal PO 0.5 mg QHS SANCHEZ Administration Risperidone 1 mg 12/27/18 10:00 01/07/19 10:24 Risperdal PO 1 mg QAM SANCHEZ Administration Sertraline HCl 100 mg 12/27/18 10:00 01/07/19 10:24 Zoloft PO 100 mg QDAY SANCHEZ Administration Simple Syrup 15 ml 01/03/19 13:07 Simple Syrup FEEDTUBE PRN PRN Hypoglycemia Simple Syrup 30 ml 01/03/19 13:07 Simple Syrup FEEDTUBE PRN PRN Hypoglycemia Sodium Bicarbonate 325 mg 01/03/19 13:07 Sodium Bicarbonate FEEDTUBE PRN PRN For Clogged Feeding Tube Sodium Chloride 10 ml 12/26/18 22:00 01/07/19 23:45 Sodium Chloride Flush Syringe 10 Ml IV 10 ml BID SANCHEZ Administration Sodium Chloride 10 ml 12/26/18 21:40 01/03/19 22:02 Sodium Chloride Flush Syringe 10 Ml IV 10 ml PRN PRN Administration LINE FLUSH Sodium Hypochlorite 1 applic 01/01/19 15:31 01/03/19 17:03 Dakin's Half Strength TP 1 applicatio Q12H PRN Administration Wound Care Nutrition/Malnutrition Assess - Dietary Evaluation Nutrition/Malnutrition Findings: Nutrition Notes Start: 12/27/18 17:15 Freq: Status: Active Protocol: Document 01/08/19 15:58 RM (Rec: 01/08/19 16:01 RM [id number]) Nutrition Notes Initial or Follow up Reassessment Current Diagnosis CKD (stage V CKD),Diabetes, Sepsis,Hypertension Other Pertinent Diagnosis Hx CVA,S/P PEG, Sacral wound, FTT, acute encephalopathy Current Diet Renal Labs/Tests Reviewed Pertinent Medications Reviewed Height 5 ft 7 in Weight 83.7 kg [place] Body Weight (kg) 67.27 BMI 28.9 Subjective/Other Information NPO after midnight in place earlier today. Renal diet ordered later today. Pt not in room at time of visit. Observed Glucerna on table in room and pump off. Per nurse pt was tolerating TF at goal prior to NPO status. Burn Absent Trauma Absent #2 Nutrition Diagnosis Increased nutrient needs ( specify in comment below) Diagnosis Progress(for reassessment Continues documentation) #1 Nutrition Diagnosis Inadequate oral intake Diagnosis Progress(for reassessment Continues documentation) Is patient on ventilator? No Is Patient Ambulatory and/or Out of Bed No REE-([place]-St. Jeor-confined to bed) 1907.892 Kcal/Kg value to use for calculation 17 Approximate Energy Requirements Using 1423 kcal/Kg Calculation Used for Recommendations [place]-St Jeor Additional Notes Pro needs 1.2-1.4g/k- 118g/day Fluid needs 1-1.5L/day Nutrition Intervention Change Diet Order: Continue current Goal #1 Meet at least 75% of calorie and protein needs via PO intakes Anticipated Discharge Needs: Unable to determine at this time Follow-Up By: 01/12/19 Additional Comments Follow for PO intakes
[2019-01-08] MEDS: FOLVITE PO SCH (17:38)
[2019-01-08] MEDS: HALFPRIN EC PO SCH (17:38)
[2019-01-08] MEDS: PEPCID PO SCH (17:38)
[2019-01-08] MEDS: HEPARIN SUB-Q SCH ×2 (17:39→23:19)
[2019-01-08] MEDS: MERREM 1,000 MG in NACL 0.9% 100 ML IV SCH (17:40)
[2019-01-08] MEDS: RisperDAL PO SCH ×2 (17:43→23:16)
[2019-01-08] MEDS: ZOLOFT PO SCH (17:46)
[2019-01-08] MEDS: SODIUM CHLORIDE FLUSH SYRINGE 10 ML IV SCH ×2 (17:46→23:18)
[2019-01-08] MEDS ORDERED: SIMPLE SYRUP FEEDTUBE PRN ×2 (20:04)
[2019-01-08] MEDS ORDERED: PANCREAZE DR 10,500 UNIT FEEDTUBE PRN (20:04)
[2019-01-08] MEDS ORDERED: SODIUM BICARBONATE FEEDTUBE PRN (20:04)
[2019-01-08] MEDS: VANCOMYCIN/NS 1 GM/250 ML 1 GM/250 ML BAG IV SCH (23:16)
[2019-01-08] MEDS: NEURONTIN PO SCH (23:18)
[2019-01-09] MEDS: PERCOCET 5/325 PO PRN ×2 (01:36→19:50)
[2019-01-09] MEDS: TYLENOL PO PRN (06:13)
[2019-01-09] MEDS: APRESOLINE PO SCH ×3 (06:13→21:13)
[2019-01-09 06:46] LABS: Hemoglobin 6.1 gm/dl (11.8-15.2); Mean Corpuscular HGB Conc 32 % (32-34); Mean Corpuscular Volume 82 fl (84-94); Platelet Count 165 K/mm3 (140-440); Red Blood Count 2.33 M/mm3 (3.65-5.03)
[2019-01-09 07:06] LABS: Calcium 8.7 mg/dL (8.4-10.2)
[2019-01-09] MEDS ORDERED: NACL 0.9% 500 ML 500 ML IV NR (08:30)
--- NOTE | 2019-01-09 09:25 | Progress Note ---
Assessment and Plan Cultures: Blood cultures 12/26/2018 no growth today. Blood cultures 01/01/2019 no growth today. Wound cultures 01/02/2019 ESBL Kleb, MDR Ecoli and E raffinosus resistant to penicillin. Assessment: 63 y/o male with history of ESRD on HD, HTN, CAD S/P CABG, CVA, DM, Atrial Fib, Anemia, Hyperparathyroidism, Hypocalcemia, schizophrenia; well known to ID service from previous admission, readmitted on 12/26/2018 due to altered sensorium and decreased responsiveness for 48 hour and decreased PO intake for 2 weeks. 1) Severe Sepsis: Improved. No fevers.Still tachycardia. Etiology most likely unstagable necrotic sacral decubitus. 2) Unstagable necrotic sacral decubitus: s/p OR on 01/01/2019 for open excisional debridement of necrotic and infected sacral wound noted a large amount of necrotic tissue debrided and two abscess cavities at the caudad portion of the wound with a copious amount of purulent drainage which was drained. Wound cultures 01/02/2019 ESBL Kleb, MDR Ecoli - this will require treatment with meropenem via tunneled cathether. (meropenem cannot be given HD) Wound also grew E raffinosus - this will require treatment with Vancomycin post HD. Surgery plans for diverting colostomy in 2 weeks. 3) History of MSSE septicemia + MRSA foot infection. Bone scan POSITIVE for osteomyelitis 4th and 5th MT head. Treated with IV vancomcyin for total of 6 we eks until 05/05/18. 4) History of septic shock from vivi HAP vs aspiration pneumonia treated with c efepime and flagyl for 7 days. 5) Acute on chronic encephalopathy: from infection CT head chronic changes and ?mastoiditis. 6) Anemia: monitor closely Recommendations: - continue meropenem 1 gm every 24 hours, D5 - continue vancomycin renally adjusted, D11 - contact isolation -Anticipate discharge on Meropenem 1 gm IV every 24 hours via tunneled catheter and Vancomycin 1 gm post HD Saturday, and Saturday for 6 weeks ending 02-16-19 -order placed with case management We will round on Saturday. Dr. 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 Please call for questions. [facility] M: [phone] O:[phone] Subjective Date of service: 01/09/19 Principal diagnosis: AMS; AFib Interval history: Patient seen and examined. Asleep. Not easy to arouse. nonverbal, no agitation. Objective - Exam Narrative Exam: General appearance: somnolent in NAD Eyes: left eye enucleation with prosthesis HENT: Atraumatic; oropharynx clear limited Neck: Trachea midline; supple, no thyromegaly or lymphadenopathy Lungs: CTA, with normal respiratory effort and no intercostal retractions CV: RRR no murmur Abdomen: Soft, non-tender; +PEG Extremities: no edema, cyanosis Skin: sacral dec with surgical dressings Psych: calm Neuro: somnolent - Constitutional Vitals: Vital Signs Temp Pulse Resp BP Pulse Ox 98.1 F 81 20 114/56 100 01/09/19 05:26 01/09/19 05:26 01/09/19 07:13 01/09/19 05:26 01/09/19 05:26 Temperature -Last 24 Hours Temperature 98.1 F Temperature 96.6 F Temperature 97.4 F Temperature 98.0 F Temperature 98.2 F - Labs CBC & Chem 7: 01/09/19 06:30 01/09/19 06:30 Labs: Abnormal lab results 01/08/19 01/08/19 01/09/19 Range/Units 16:52 23:41 06:30 RBC 2.33 L (3.65-5.03) M/mm3 Hgb 6.1 L (11.8-15.2) gm/dl Hct 19.0 L* (35.5-45.6) % MCV 82 L (84-94) fl MCH 26 L (28-32) pg RDW 20.0 H (13.2-15.2) % Sodium (137-145) mmol/L Chloride (98-107) mmol/L BUN (9-20) mg/dL Creatinine (0.8-1.5) mg/dL Glucose (75-100) mg/dL POC Glucose 133 H 147 H (70-105) 01/09/19 01/09/19 Range/Units 06:30 06:36 RBC (3.65-5.03) M/mm3 Hgb (11.8-15.2) gm/dl Hct (35.5-45.6) % MCV (84-94) fl MCH (28-32) pg RDW (13.2-15.2) % Sodium 135 L (137-145) mmol/L Chloride 97.7 L (98-107) mmol/L BUN 27 H (9-20) mg/dL Creatinine 2.4 H (0.8-1.5) mg/dL Glucose 142 H (75-100) mg/dL POC Glucose 151 H (70-105)
[2019-01-09] MEDS: MERREM 1,000 MG in NACL 0.9% 100 ML IV SCH (09:32)
[2019-01-09] MEDS: MIRALAX 3350 PO SCH (10:49)
[2019-01-09] MEDS: ZOLOFT PO SCH (11:29)
[2019-01-09] MEDS: PEPCID PO SCH (11:29)
[2019-01-09] MEDS: RisperDAL PO SCH ×2 (11:29→21:13)
[2019-01-09] MEDS: LOPRESSOR PO SCH ×2 (11:30→21:13)
[2019-01-09] MEDS: HALFPRIN EC PO SCH (11:31)
[2019-01-09] MEDS: FOLVITE PO SCH (11:31)
[2019-01-09] MEDS: COLACE PO SCH ×2 (11:31→21:15)
--- NOTE | 2019-01-09 12:18 | Progress Note ---
Subjective Principal diagnosis: AMS; AFib Interval history: Patient was seen today for follow-up on multiple renal related issues Events of this hospitalization noted Patient is on dialysis Saturday Vitals labs intake output medications were reviewed Social history: Reviewed Allergies: Reviewed Family history: Reviewed Physical examination HEENT: Oral mucosa moist no pallor or icterus Neck: Supple no JVD Chest: Clear to auscultation anteriorly CVS: Regular rate and rhythm S1 and S2 heard Abdomen: Soft nontender no suprapubic masses no organomegaly appreciable Extremity: Dry skin less than 1+ peripheral edema Chronic upper extremity swelling Musculoskeletal: No joint effusion noted in knees and ankle Neurological: Alert awake Dermatology: No petechial rashes Psychiatry: No evidence of any agitation and aggression noted Assessment and plan; End-stage renal disease: Patient will continue with hemodialysis on Saturday schedule Hypokalemia continue to monitor potassium level Chronic encephalopathy ,Mental status fluctuated due to underlying dementia likely, psychiatric problems, Multiple comorbidities including sacral decubitus ulcer adult failure to thrive- like picture malnutrition Overall prognosis very poor mortality risk is high Hemoglobin currently 6.1 patient will require at least 2 units of packed red blood cell transfusion,Potassium is currently 4.1 Limited dialysis access currently eating dialyze with a permacath chronic left arm swelling which is not new Monitor dialysis related labs, dialysis as tolerated Overall prognosis appears to be guarded due to end-stage renal disease, dialysis status and other comorbidities Cardiomyopathy ejection fraction 30% range We'll continue to follow and make recommendation from renal standpoint Objective - Vital Signs Vital signs: Vital Signs - 12hr 01/09/19 01/09/19 01/09/19 02:36 05:26 06:13 Temperature 98.1 F Pulse Rate 81 Respiratory 20 16 20 Rate Blood Pressure 114/56 O2 Sat by Pulse 100 Oximetry 01/09/19 01/09/19 07:13 09:00 Temperature Pulse Rate Respiratory 20 Rate Blood Pressure O2 Sat by Pulse 92 Oximetry - Lab 01/09/19 06:30 01/09/19 06:30 Most recent lab results Calcium 8.7 mg/dL (8.4-10.2) 01/09/19 06:30 Phosphorus 2.90 mg/dL (2.5-4.5) D 01/05/19 04:56 Magnesium 2.00 mg/dL (1.7-2.3) 01/05/19 04:56 Medications & Allergies - Medications Allergies/Adverse Reactions: Allergies haloperidol [From Haldol] Adverse Reaction (Verified 03/13/18 12:10) Unknown haloperidol lactate [From Haldol] Adverse Reaction (Verified 03/13/18 12:10) Unknown Home Medications: Home Medications Medication Instructions Recorded Confirmed Last Taken Type risperiDONE [RisperDAL] 1 mg PO QAM 03/13/18 12/27/18 Unknown History Sertraline [Zoloft] 100 mg PO QDAY 08/26/18 12/27/18 Unknown History risperiDONE [RisperDAL] 0.5 mg PO HS 08/26/18 12/27/18 Unknown History Polyethylene Glycol 3350 [Miralax 17 gm PO QDAY #30 packet 11/05/18 12/27/18 Unknown Rx 3350] Aspirin EC 81 mg PO DAILY #30 11/19/18 12/27/18 Unknown Rx Docusate Sodium [Colace CAP] 100 mg PO BID #60 11/19/18 12/27/18 Unknown Rx Folic Acid [Folvite] 1 mg PO DAILY #30 tab 11/19/18 12/27/18 Unknown Rx Famotidine [Pepcid] 20 mg PO DAILY tablet 12/08/18 12/27/18 Unknown Rx Gabapentin [Neurontin] 100 mg PO QHS capsule 12/08/18 12/27/18 Unknown Rx Metoprolol [Lopressor TAB] 50 mg PO BID 30 Days tablet 12/08/18 12/27/18 Unknown Rx Sevelamer Carbonate [Renvela] 800 mg PO TIDWM tablet 12/08/18 12/27/18 Unknown Rx hydrALAZINE [Apresoline TAB] 100 mg PO Q8HR #120 tablet 12/08/18 12/27/18 Unknown Rx Acetaminophen [Acetaminophen TAB] 650 mg PO Q12H PRN 12/15/18 12/27/18 Unknown History Amino Acids/Protein Hydrolys 30 ml PO BID 12/15/18 12/27/18 Unknown History [Pro-Stat Sugar Free Liquid] Glucagon,Human Recombinant 1 mg IJ Q15MIN PRN 12/15/18 12/27/18 Unknown History [Glucagon Emergency Kit] Insulin Aspart [NovoLOG 100 See Protocol SQ QWEEK 12/15/18 12/27/18 Unknown History UNITS/ML VIAL] Epoetin Solitario 10,000 Unit [Procrit] 10,000 unit IV UMA PRN vial 12/18/1803/09 Unknown Rx Lispro Insulin [HumaLOG] 0 unit SUB-Q ACHS units 12/18/18 12/27/18 Unknown Rx risperiDONE [RisperDAL] 0.5 mg PO QHS tablet 12/18/18 12/27/18 Unknown Rx Active Medications: Generic Name Dose Route Start Last Admin Trade Name Freq PRN Reason Stop Dose Admin Acetaminophen 650 mg 12/26/18 21:40 01/09/19 06:13 Tylenol PO 650 mg Q4H PRN Administration Pain MILD(1-3)/Fever >100.5/HILL Lipase/Protease/Amylase 1 each 01/03/19 13:07 Pancreaze 10,500 Unit FEEDTUBE PRN PRN For Clogged Feeding Tube Aspirin 81 mg 12/27/18 10:00 01/08/19 17:38 Halfprin Ec PO 81 mg DAILY SANCHEZ Administration Docusate Sodium 100 mg 12/26/18 22:00 01/08/19 23:18 Colace PO 100 mg BID SANCHEZ Administration Epoetin Solitario 20,000 unit 01/05/19 11:03 01/06/19 17:10 Procrit IV 20,000 unit UMA PRN Administration hemodialysis Famotidine 20 mg 12/27/18 10:00 01/08/19 17:38 Pepcid PO 20 mg DAILY SANCHEZ Administration Folic Acid 1 mg 12/27/18 10:00 01/08/19 17:38 Folvite PO 1 mg DAILY SANCHEZ Administration Gabapentin 100 mg 12/26/18 22:00 01/08/19 23:18 Neurontin PO 100 mg QHS SANCHEZ Administration Hydralazine HCl 100 mg 12/26/18 22:00 01/09/19 06:13 Apresoline PO 100 mg Q8HR SANCHEZ Administration Meropenem 1,000 mg/ Sodium 100 mls @ 100 mls/hr 01/05/19 11:00 01/08/19 17:40 Chloride IV 02/16/19 10:59 100 mls/hr Q24HR SANCHEZ Administration Vancomycin HCl 1 gm in 250 mls @ 167.007 mls/hr 01/06/19 20:00 01/08/19 23:16 Vancomycin/Ns 1 Gm/250 Ml IV 02/17/19 21:30 167.007 mls/hr TuThSa SANCHEZ Administration Sodium Chloride 100 mls @ 999 mls/hr 01/08/19 08:31 Nacl 0.9% IV UMA PRN Hypotension Sodium Chloride 500 mls @ 0 mls/hr 01/09/19 08:30 Nacl 0.9% 500 Ml IV 01/09/19 16:00 ONCE NR As Directed Metoprolol Tartrate 5 mg 12/27/18 18:55 12/29/18 05:41 Lopressor IV 5 mg Q5MIN PRN Administration increased heart rate Metoprolol Tartrate 100 mg 12/31/18 22:00 01/08/19 23:17 Lopressor PO 100 mg BID SANCHEZ Administration Ondansetron HCl 4 mg 12/26/18 21:40 Zofran IV Q8H PRN Nausea And Vomiting Oxycodone/Acetaminophen 1 tab 01/05/19 08:30 01/09/19 01:36 Percocet 5/325 PO 1 tab Q6H PRN Administration Pain, Moderate (4-6) Polyethylene Glycol 17 gm 12/27/18 10:00 01/08/19 10:40 Miralax 3350 PO Not Given QDAY SANCHEZ Risperidone 0.5 mg 12/26/18 22:00 01/08/19 23:16 Risperdal PO 0.5 mg QHS SANCHEZ Administration Risperidone 1 mg 12/27/18 10:00 01/08/19 17:43 Risperdal PO 1 mg QAM SANCHEZ Administration Sertraline HCl 100 mg 12/27/18 10:00 01/08/19 17:46 Zoloft PO 100 mg QDAY SANCHEZ Administration Simple Syrup 15 ml 01/03/19 13:07 Simple Syrup FEEDTUBE PRN PRN Hypoglycemia Simple Syrup 30 ml 01/03/19 13:07 Simple Syrup FEEDTUBE PRN PRN Hypoglycemia Sodium Bicarbonate 325 mg 01/03/19 13:07 Sodium Bicarbonate FEEDTUBE PRN PRN For Clogged Feeding Tube Sodium Chloride 10 ml 12/26/18 22:00 01/08/19 23:18 Sodium Chloride Flush Syringe 10 Ml IV 10 ml BID SANCHEZ Administration Sodium Chloride 10 ml 12/26/18 21:40 01/03/19 22:02 Sodium Chloride Flush Syringe 10 Ml IV 10 ml PRN PRN Administration LINE FLUSH Sodium Hypochlorite 1 applic 01/01/19 15:31 01/03/19 17:03 Dakin's Half Strength TP 1 applicatio Q12H PRN Administration Wound Care
[2019-01-09] MEDS: SODIUM CHLORIDE FLUSH SYRINGE 10 ML IV SCH ×2 (12:31→21:20)
--- NOTE | 2019-01-09 14:09 | Event Note ---
Date: 01/09/19 Pt scheduled for diverting colostomy on Saturday. Procedure, risks, benefits discussed with eJnnifer LOPEZ) as patient is unable to consent to procedure secondary to altered mental status. All questions answered. Consent obtained. Will write pre-op orders on Saturday. please call with questions.
--- NOTE | 2019-01-09 14:48 | Progress Note ---
Assessment and Plan Assessment and plan: Patient is a 63-year-old -[place] man from [facility] with a plethora of co-morbidities including blindness, CVA, CHF, PPM/ICD, loop recorder since 2013 that is MRI compatible, IDDM type 2, sepsis left foot ulcer, afib, ESRD with complications on HD TTS, hypertension, AOCD and GERD who presented to [facility] with altered sensorium and decreased responsiveness. Decreased responsive and not eating at all for 2 days. Patient has failure to thrive, altered mentation and weight loss of 20 pounds since 12/08/2018. Severe Sepsis due to Necrotizing Unstagable sacral decubitus ulcer s/p OR on 01/01/2019 for open excisional debridement of necrotic and infected sacral wound noted a large amount of necrotic tissue debrided and two abscess cavities at the caudad portion of the wound with a copious amount of purulent drainage which was drained. Wound cultures 01/02/2019 ESBL Kleb, MDR Ecoli and E raffinosus resistant to penicillin: On meropenam and vanc per ID. Consult Vascular surgery for central line placement, planned for diverting colostomy, family has agreed, awaiting cardiology preop eval Acute metabolic encephalopathy due to the above Acute systolic exacerbation of CHF (congestive heart failure): treat via Ultrafiltration during HD Afib with RVR: rate control only and optimize meds per Cardiology ESRD needing dialysis: Nephology is managing, Continue hemo dialysis Insulin dependent diabetes mellitus, A1c is 4.2: insulin was dc Severe malnutrition with FTT: 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, cont oral diet, hot pipe gauger input appreciated, PEG tube placed on 01/02/19 Hypertension: Continue antihypertensives h/o Peripheral neuropathy: Continue gabapentin h/o Anemia: Continue epoetin Elevated troponin, Secondary to end-stage renal disease, chf and afib, Cardiology input appreciated DVT prophylaxis On heparin and GI prophylaxis re-consulted Cardiology for pre-op evaluation d/w Dr. Briggs, needs 2 weeks from PEG placement to perform diverting colostomy, should be done Saturday d/w Dr. Villela, Vascular surgery placed central line placement for Merem, 01/08/19 Transfuse 2 units History Interval history: Patient was seen and examined. Follow-up on current diagnosis Sacral decubitus ulcer. No overnight events reported to me. Imaging, nursing note, chart, labs and old chart reviewed. Hospitalist Physical - Physical exam Narrative exam: Gen: severely chronically ill appearing, semi-comatose, mouth open, head flexed, eyes closed, unresponsive HEENT: NCAT, >right eye matted shut, OP dried out with mouth open but good oral care done. Neck: supple, no adenopathy, no thyromegaly, no JVD CVS/Heart: irregular irregular, normal S1S2, pulses present bilaterally Chest/Lungs: poor air entry, Symmetrical chest expansion, good air entry bila terally GI/Abdomen: soft, peg in place, NTND, good bowel sounds, no guarding or rebound /Bladder: no suprapubic tenderness, no CVA or paraspinal tenderness Extermity/Skin: atrophic contracted legs MSK: doesn't follow commands Neuro: doesn't follow commands Psych: unresponsive - Constitutional Vitals: Temp Pulse Resp BP Pulse Ox 97.7 F 82 18 119/54 100 01/09/19 11:16 01/09/19 11:16 01/09/19 11:16 01/09/19 11:16 01/09/19 11:16 General appearance: Present: no acute distress, cachectic, disheveled Results - Labs CBC & Chem 7: 01/09/19 06:30 01/09/19 06:30 Labs: Laboratory Last Values WBC 6.1 K/mm3 (4.5-11.0) 01/09/19 06:30 RBC 2.33 M/mm3 (3.65-5.03) L 01/09/19 06:30 Hgb 6.1 gm/dl (11.8-15.2) L 01/09/19 06:30 Hct 19.0 % (35.5-45.6) L* 01/09/19 06:30 MCV 82 fl (84-94) L 01/09/19 06:30 MCH 26 pg (28-32) L 01/09/19 06:30 MCHC 32 % (32-34) 01/09/19 06:30 RDW 20.0 % (13.2-15.2) H 01/09/19 06:30 Plt Count 165 K/mm3 (140-440) 01/09/19 06:30 Lymph % (Auto) 5.8 % (13.4-35.0) L 01/07/19 00:45 Waldo % (Auto) 6.0 % (0.0-7.3) 01/07/19 00:45 Eos % (Auto) 3.8 % (0.0-4.3) 01/07/19 00:45 Baso % (Auto) 0.2 % (0.0-1.8) 01/07/19 00:45 Lymph # 0.5 K/mm3 (1.2-5.4) L 01/07/19 00:45 Waldo # 0.5 K/mm3 (0.0-0.8) 01/07/19 00:45 Eos # 0.3 K/mm3 (0.0-0.4) 01/07/19 00:45 Baso # 0.0 K/mm3 (0.0-0.1) 01/07/19 00:45 Add Manual Diff Complete 01/03/19 17:16 Total Counted 100 01/03/19 17:16 Seg Neutrophils % 84.2 % (40.0-70.0) H 01/07/19 00:45 Seg Neuts % (Manual) 96.0 % (40.0-70.0) H 01/03/19 17:16 0 % 01/03/19 17:16 2.0 % (13.4-35.0) L 01/03/19 17:16 Reactive Lymphs % (Man) 0 % 01/03/19 17:16 2.0 % (0.0-7.3) 01/03/19 17:16 0 % (0.0-4.3) 01/03/19 17:16 0 % (0.0-1.8) 01/03/19 17:16 0 % 01/03/19 17:16 0 % 01/03/19 17:16 0 % 01/03/19 17:16 0 % 01/03/19 17:16 Nucleated RBC % Not Reportable 01/03/19 17:16 Seg Neutrophils # 6.9 K/mm3 (1.8-7.7) 01/07/19 00:45 Seg Neutrophils # Man 10.8 K/mm3 (1.8-7.7) H 01/03/19 17:16 Band Neutrophils # 0.0 K/mm3 01/03/19 17:16 0.2 K/mm3 (1.2-5.4) L 01/03/19 17:16 Abs React Lymphs (Man) 0.0 K/mm3 01/03/19 17:16 0.2 K/mm3 (0.0-0.8) 01/03/19 17:16 0.0 K/mm3 (0.0-0.4) 01/03/19 17:16 0.0 K/mm3 (0.0-0.1) 01/03/19 17:16 0.0 K/mm3 01/03/19 17:16 0.0 K/mm3 01/03/19 17:16 0.0 K/mm3 01/03/19 17:16 Blast Cells # 0.0 K/mm3 01/03/19 17:16 WBC Morphology Not Reportable 01/03/19 17:16 Hypersegmented Neuts Not Reportable 01/03/19 17:16 Hyposegmented Neuts Not Reportable 01/03/19 17:16 Hypogranular Neuts Not Reportable 01/03/19 17:16 Not Reportable 01/03/19 17:16 Not Reportable 01/03/19 17:16 Not Reportable 01/03/19 17:16 Not Reportable 01/03/19 17:16 Not Reportable 01/03/19 17:16 Not Reportable 01/03/19 17:16 Consistent w auto 01/03/19 17:16 Not Reportable 01/03/19 17:16 Plt Clumps, EDTA Not Reportable 01/03/19 17:16 Not Reportable 01/03/19 17:16 Not Reportable 01/03/19 17:16 Not Reportable 01/03/19 17:16 Plt Morphology Comment Not Reportable 01/03/19 17:16 RBC Morphology Not Reportable 01/03/19 17:16 Dimorphic RBCs Not Reportable 01/03/19 17:16 Not Reportable 01/03/19 17:16 1+ 01/03/19 17:16 Few 01/03/19 17:16 1+ 01/03/19 17:16 Not Reportable 01/03/19 17:16 Not Reportable 01/03/19 17:16 Not Reportable 01/03/19 17:16 Not Reportable 01/03/19 17:16 Not Reportable 01/03/19 17:16 Few 01/03/19 17:16 Not Reportable 01/03/19 17:16 Few 01/03/19 17:16 Not Reportable 01/03/19 17:16 Not Reportable 01/03/19 17:16 Not Reportable 01/03/19 17:16 Not Reportable 01/03/19 17:16 Not Reportable 01/03/19 17:16 Not Reportable 01/03/19 17:16 Not Reportable 01/03/19 17:16 Acanthocytes (Spur) Not Reportable 01/03/19 17:16 Rouleaux Not Reportable 01/03/19 17:16 Not Reportable 01/03/19 17:16 Not Reportable 01/03/19 17:16 Not Reportable 01/03/19 17:16 Not Reportable 01/03/19 17:16 Hem Pathologist Commnt No 01/03/19 17:16 PT 18.0 Sec. (12.2-14.9) H 01/02/19 05:39 INR 1.39 (0.87-1.13) H 01/02/19 05:39 Sodium 135 mmol/L (137-145) L 01/09/19 06:30 Potassium 4.1 mmol/L (3.6-5.0) 01/09/19 06:30 Chloride 97.7 mmol/L (98-107) L 01/09/19 06:30 Carbon Dioxide 28 mmol/L (22-30) 01/09/19 06:30 13 mmol/L 01/09/19 06:30 BUN 27 mg/dL (9-20) H 01/09/19 06:30 2.4 mg/dL (0.8-1.5) H 01/09/19 06:30 Estimated GFR 33 ml/min 01/09/19 06:30 11 % 01/09/19 06:30 Glucose 142 mg/dL (75-100) H 01/09/19 06:30 POC Glucose 122 (70-105) H 01/09/19 11:23 < 4.2 % (4-6) 12/26/18 17:12 Lactic Acid 1.10 mmol/L (0.7-2.0) 12/27/18 07:04 Calcium 8.7 mg/dL (8.4-10.2) 01/09/19 06:30 Phosphorus 2.90 mg/dL (2.5-4.5) D 01/05/19 04:56 Magnesium 2.00 mg/dL (1.7-2.3) 01/05/19 04:56 0.20 mg/dL (0.1-1.2) 01/07/19 11:16 AST 12 units/L (5-40) 01/07/19 11:16 ALT < 5 units/L (7-56) L 01/07/19 11:16 92 units/L (35-129) 01/07/19 11:16 29 units/L (55-170) L 12/26/18 17:12 0.158 ng/mL (0.00-0.029) H* 12/26/18 17:12 5.7 g/dL (6.3-8.2) L 01/07/19 11:16 2.0 g/dL (3.9-5) L 01/07/19 11:16 0.5 % 01/07/19 11:16 Triglycerides 75 mg/dL (2-149) 12/26/18 17:12 Cholesterol 109 mg/dL (50-199) 12/26/18 17:12 43 mg/dL (50-130) L 12/26/18 17:12 41 mg/dL (40-59) 12/26/18 17:12 2.65 % 12/26/18 17:12 PTH Intact 178.6 pg/mL (15-65) H 01/01/19 17:32 Random Vancomycin 9.1 ug/mL (0-40.0) 01/02/19 05:39 Blood Type O POSITIVE 01/09/19 10:50 Antibody Screen Negative 01/09/19 10:50 Crossmatch See Detail 01/09/19 10:50 Active Medications - Current Medications Current Medications: Generic Name Dose Route Start Last Admin Trade Name Freq PRN Reason Stop Dose Admin Acetaminophen 650 mg 12/26/18 21:40 01/09/19 06:13 Tylenol PO 650 mg Q4H PRN Administration Pain MILD(1-3)/Fever >100.5/HILL Lipase/Protease/Amylase 1 each 01/03/19 13:07 Pancreaze 10,500 Unit FEEDTUBE PRN PRN For Clogged Feeding Tube Aspirin 81 mg 12/27/18 10:00 01/09/19 11:31 Halfprin Ec PO 81 mg DAILY SANCHEZ Administration Docusate Sodium 100 mg 12/26/18 22:00 01/09/19 11:31 Colace PO 100 mg BID SANCHEZ Administration Epoetin Solitario 20,000 unit 01/05/19 11:03 01/06/19 17:10 Procrit IV 20,000 unit UMA PRN Administration hemodialysis Famotidine 20 mg 12/27/18 10:00 01/09/19 11:29 Pepcid PO 20 mg DAILY SANCHEZ Administration Folic Acid 1 mg 12/27/18 10:00 01/09/19 11:31 Folvite PO 1 mg DAILY SANCHEZ Administration Gabapentin 100 mg 12/26/18 22:00 01/08/19 23:18 Neurontin PO 100 mg QHS SANCHEZ Administration Hydralazine HCl 100 mg 12/26/18 22:00 01/09/19 06:13 Apresoline PO 100 mg Q8HR SANCHEZ Administration Meropenem 1,000 mg/ Sodium 100 mls @ 100 mls/hr 01/05/19 11:00 01/09/19 09:32 Chloride IV 02/16/19 10:59 100 mls/hr Q24HR SANCHEZ Administration Vancomycin HCl 1 gm in 250 mls @ 167.007 mls/hr 01/06/19 20:00 01/08/19 23:16 Vancomycin/Ns 1 Gm/250 Ml IV 02/17/19 21:30 167.007 mls/hr TuThSa SANCHEZ Administration Sodium Chloride 100 mls @ 999 mls/hr 01/08/19 08:31 Nacl 0.9% IV UMA PRN Hypotension Sodium Chloride 500 mls @ 0 mls/hr 01/09/19 08:30 Nacl 0.9% 500 Ml IV 01/09/19 16:00 ONCE NR As Directed Metoprolol Tartrate 5 mg 12/27/18 18:55 12/29/18 05:41 Lopressor IV 5 mg Q5MIN PRN Administration increased heart rate Metoprolol Tartrate 100 mg 12/31/18 22:00 01/09/19 11:30 Lopressor PO 100 mg BID SANCHEZ Administration Ondansetron HCl 4 mg 12/26/18 21:40 Zofran IV Q8H PRN Nausea And Vomiting Oxycodone/Acetaminophen 1 tab 01/05/19 08:30 01/09/19 01:36 Percocet 5/325 PO 1 tab Q6H PRN Administration Pain, Moderate (4-6) Polyethylene Glycol 17 gm 12/27/18 10:00 01/08/19 10:40 Miralax 3350 PO Not Given QDAY SANCHEZ Risperidone 0.5 mg 12/26/18 22:00 01/08/19 23:16 Risperdal PO 0.5 mg QHS SANCHEZ Administration Risperidone 1 mg 12/27/18 10:00 01/09/19 11:29 Risperdal PO 1 mg QAM SANCHEZ Administration Sertraline HCl 100 mg 12/27/18 10:00 01/09/19 11:29 Zoloft PO 100 mg QDAY SANCHEZ Administration Simple Syrup 15 ml 01/03/19 13:07 Simple Syrup FEEDTUBE PRN PRN Hypoglycemia Simple Syrup 30 ml 01/03/19 13:07 Simple Syrup FEEDTUBE PRN PRN Hypoglycemia Sodium Bicarbonate 325 mg 01/03/19 13:07 Sodium Bicarbonate FEEDTUBE PRN PRN For Clogged Feeding Tube Sodium Chloride 10 ml 12/26/18 22:00 01/09/19 12:31 Sodium Chloride Flush Syringe 10 Ml IV 10 ml BID SANCHEZ Administration Sodium Chloride 10 ml 12/26/18 21:40 01/03/19 22:02 Sodium Chloride Flush Syringe 10 Ml IV 10 ml PRN PRN Administration LINE FLUSH Sodium Hypochlorite 1 applic 01/01/19 15:31 01/03/19 17:03 Dakin's Half Strength TP 1 applicatio Q12H PRN Administration Wound Care Nutrition/Malnutrition Assess - Dietary Evaluation Nutrition/Malnutrition Findings: Nutrition Notes Start: 12/27/18 17:15 Freq: Status: Active Protocol: Document 01/08/19 15:58 RM (Rec: 01/08/19 16:01 RM [id number]) Nutrition Notes Initial or Follow up Reassessment Current Diagnosis CKD (stage V CKD),Diabetes, Sepsis,Hypertension Other Pertinent Diagnosis Hx CVA,S/P PEG, Sacral wound, FTT, acute encephalopathy Current Diet Renal Labs/Tests Reviewed Pertinent Medications Reviewed Height 5 ft 7 in Weight 83.7 kg [place] Body Weight (kg) 67.27 BMI 28.9 Subjective/Other Information NPO after midnight in place earlier today. Renal diet ordered later today. Pt not in room at time of visit. Observed Glucerna on table in room and pump off. Per nurse pt was tolerating TF at goal prior to NPO status. Burn Absent Trauma Absent #2 Nutrition Diagnosis Increased nutrient needs ( specify in comment below) Diagnosis Progress(for reassessment Continues documentation) #1 Nutrition Diagnosis Inadequate oral intake Diagnosis Progress(for reassessment Continues documentation) Is patient on ventilator? No Is Patient Ambulatory and/or Out of Bed No REE-([place]-St. Jeor-confined to bed) 1907.892 Kcal/Kg value to use for calculation 17 Approximate Energy Requirements Using 1423 kcal/Kg Calculation Used for Recommendations [place]-St Jeor Additional Notes Pro needs 1.2-1.4g/k- 118g/day Fluid needs 1-1.5L/day Nutrition Intervention Change Diet Order: Continue current Goal #1 Meet at least 75% of calorie and protein needs via PO intakes Anticipated Discharge Needs: Unable to determine at this time Follow-Up By: 01/12/19 Additional Comments Follow for PO intakes
[2019-01-09 15:33] LABS: Hematocrit 19.3 % (35.5-45.6); Hemoglobin 5.8 gm/dl (11.8-15.2)
[2019-01-09] MEDS: DAKIN'S HALF STRENGTH TP PRN (18:00)
[2019-01-09] MEDS: NEURONTIN PO SCH (21:13)
[2019-01-10] MEDS: PERCOCET 5/325 PO PRN ×4 (01:54→22:51)
[2019-01-10] MEDS: APRESOLINE PO SCH ×3 (05:13→22:53)
[2019-01-10 08:19] LABS: Hematocrit 25.9 % (35.5-45.6); Hemoglobin 8.5 gm/dl (11.8-15.2); Mean Corpuscular HGB Conc 33 % (32-34); Mean Corpuscular Volume 84 fl (84-94); Platelet Count 205 K/mm3 (140-440); Red Blood Count 3.09 M/mm3 (3.65-5.03); Red Cell Distribution Width 18.7 % (13.2-15.2)
[2019-01-10 08:40] LABS: Calcium 8.8 mg/dL (8.4-10.2)
--- NOTE | 2019-01-10 10:59 | Progress Note ---
Subjective Principal diagnosis: AMS; AFib Interval history: Patient was seen today for follow-up on multiple renal related issues Events of this hospitalization noted Status post packed red blood cell transfusion Pending diverging colostomy Patient is on dialysis Saturday Vitals labs intake output medications were reviewed Social history: Reviewed Allergies: Reviewed Family history: Reviewed Physical examination HEENT: Oral mucosa moist no pallor or icterus Neck: Supple no JVD Chest: Clear to auscultation anteriorly CVS: Regular rate and rhythm S1 and S2 heard Abdomen: Soft nontender no suprapubic masses no organomegaly appreciable Extremity: Dry skin less than 1+ peripheral edema Chronic upper extremity swelling Musculoskeletal: No joint effusion noted in knees and ankle Neurological: Alert awake Dermatology: No petechial rashes Psychiatry: No evidence of any agitation and aggression noted Assessment and plan; Severe anemia status post packed red blood cell transfusion hemoglobin is currently 8.5 some of this is also resulting from blood loss, malnutrition, dialysis status, continue with supportive care erythropoietin From dialysis 10.2 sodium is 133 potassium 4.8 BUN 37 creatinine 2.9 Current dialysis axis his central venous catheter Patient does have chronic swelling of his upper extremity Multiple comorbidities including sepsis due to sacral decubitus ulcer Chronic intermittent encephalopathy in a patient who is 63-year-old and has vascular disease diabetes Issues with atrial fibrillation rapid ventricular response diabetes mellitus type 2 malnutrition hypertension neuropathy chronic access related issues Prognosis in general is very poor Patient is currently pending diverging colostomy Cardiomyopathy ejection fraction 30% range We'll continue to follow and make recommendation from renal standpoint Objective - Vital Signs Vital signs: Vital Signs - 12hr 01/10/19 01/10/19 01/10/19 00:05 00:55 01:01 Temperature 98.1 F Pulse Rate 82 83 Respiratory 20 20 Rate Blood Pressure 109/62 Blood Pressure 110/61 [Right] O2 Sat by Pulse 100 100 Oximetry 01/10/19 01/10/19 01/10/19 01:02 01:54 02:10 Temperature 98.0 F Pulse Rate 83 81 Respiratory 20 18 Rate Blood Pressure 111/68 Blood Pressure [Right] O2 Sat by Pulse 100 Oximetry 01/10/19 01/10/19 01/10/19 02:24 02:25 02:55 Temperature 98.3 F 98.4 F 98.3 F Pulse Rate 72 88 93 H Respiratory 18 18 20 Rate Blood Pressure 111/72 108/65 131/73 Blood Pressure [Right] O2 Sat by Pulse Oximetry 01/10/19 01/10/19 01/10/19 03:25 03:55 05:33 Temperature 98.3 F 98.4 F Pulse Rate 82 97 H 79 Respiratory 20 18 Rate Blood Pressure 106/62 130/81 Blood Pressure 113/68 [Right] O2 Sat by Pulse Oximetry 01/10/19 06:27 Temperature 98.3 F Pulse Rate 95 H Respiratory 20 Rate Blood Pressure 104/72 Blood Pressure [Right] O2 Sat by Pulse 100 Oximetry - Lab 01/10/19 08:00 01/10/19 08:00 Most recent lab results Calcium 8.8 mg/dL (8.4-10.2) 01/10/19 08:00 Phosphorus 2.90 mg/dL (2.5-4.5) D 01/05/19 04:56 Magnesium 2.00 mg/dL (1.7-2.3) 01/05/19 04:56 Medications & Allergies - Medications Allergies/Adverse Reactions: Allergies haloperidol [From Haldol] Adverse Reaction (Verified 03/13/18 12:10) Unknown haloperidol lactate [From Haldol] Adverse Reaction (Verified 03/13/18 12:10) Unknown Home Medications: Home Medications Medication Instructions Recorded Confirmed Last Taken Type risperiDONE [RisperDAL] 1 mg PO QAM 03/13/18 12/27/18 Unknown History Sertraline [Zoloft] 100 mg PO QDAY 08/26/18 12/27/18 Unknown History risperiDONE [RisperDAL] 0.5 mg PO HS 08/26/18 12/27/18 Unknown History Polyethylene Glycol 3350 [Miralax 17 gm PO QDAY #30 packet 11/05/18 12/27/18 Unknown Rx 3350] Aspirin EC 81 mg PO DAILY #30 11/19/18 12/27/18 Unknown Rx Docusate Sodium [Colace CAP] 100 mg PO BID #60 11/19/18 12/27/18 Unknown Rx Folic Acid [Folvite] 1 mg PO DAILY #30 tab 11/19/18 12/27/18 Unknown Rx Famotidine [Pepcid] 20 mg PO DAILY tablet 12/08/18 12/27/18 Unknown Rx Gabapentin [Neurontin] 100 mg PO QHS capsule 12/08/18 12/27/18 Unknown Rx Metoprolol [Lopressor TAB] 50 mg PO BID 30 Days tablet 12/08/18 12/27/18 Unknown Rx Sevelamer Carbonate [Renvela] 800 mg PO TIDWM tablet 12/08/18 12/27/18 Unknown Rx hydrALAZINE [Apresoline TAB] 100 mg PO Q8HR #120 tablet 12/08/18 12/27/18 Unknown Rx Acetaminophen [Acetaminophen TAB] 650 mg PO Q12H PRN 12/15/18 12/27/18 Unknown History Amino Acids/Protein Hydrolys 30 ml PO BID 12/15/18 12/27/18 Unknown History [Pro-Stat Sugar Free Liquid] Glucagon,Human Recombinant 1 mg IJ Q15MIN PRN 12/15/18 12/27/18 Unknown History [Glucagon Emergency Kit] Insulin Aspart [NovoLOG 100 See Protocol SQ QWEEK 12/15/18 12/27/18 Unknown History UNITS/ML VIAL] Epoetin Solitario 10,000 Unit [Procrit] 10,000 unit IV UMA PRN vial 12/18/18 12/27/18 Unknown Rx Lispro Insulin [HumaLOG] 0 unit SUB-Q ACHS units 12/18/18 12/27/18 Unknown Rx risperiDONE [RisperDAL] 0.5 mg PO QHS tablet 12/18/18 12/27/18 Unknown Rx Active Medications: Generic Name Dose Route Start Last Admin Trade Name Freq PRN Reason Stop Dose Admin Acetaminophen 650 mg 12/26/18 21:40 01/09/19 06:13 Tylenol PO 650 mg Q4H PRN Administration Pain MILD(1-3)/Fever >100.5/HILL Lipase/Protease/Amylase 1 each 01/03/19 13:07 Pancrejewel Barrientos 10,500 Unit FEEDTUBE PRN PRN For Clogged Feeding Tube Aspirin 81 mg 12/27/18 10:00 01/09/19 11:31 Halfprin Ec PO 81 mg DAILY SANCHEZ Administration Docusate Sodium 100 mg 12/26/18 22:00 01/09/19 21:15 Colace PO Not Given BID SANCHEZ Epoetin Solitario 20,000 unit 01/05/19 11:03 01/06/19 17:10 Procrit IV 20,000 unit UMA PRN Administration hemodialysis Famotidine 20 mg 12/27/18 10:00 01/09/19 11:29 Pepcid PO 20 mg DAILY SANCHEZ Administration Folic Acid 1 mg 12/27/18 10:00 01/09/19 11:31 Folvite PO 1 mg DAILY SANCHEZ Administration Gabapentin 100 mg 12/26/18 22:00 01/09/19 21:13 Neurontin PO 100 mg QHS SANCHEZ Administration Hydralazine HCl 100 mg 12/26/18 22:00 01/10/19 05:13 Apresoline PO Not Given Q8HR SANCHEZ Meropenem 1,000 mg/ Sodium 100 mls @ 100 mls/hr 01/05/19 11:00 01/09/19 09:32 Chloride IV 02/16/19 10:59 100 mls/hr Q24HR SANCHEZ Administration Vancomycin HCl 1 gm in 250 mls @ 167.007 mls/hr 01/06/19 20:00 01/08/19 23:16 Vancomycin/Ns 1 Gm/250 Ml IV 02/17/19 21:30 167.007 mls/hr TuThSa SANCHEZ Administration Sodium Chloride 100 mls @ 999 mls/hr 01/08/19 08:31 Nacl 0.9% IV UMA PRN Hypotension Metoprolol Tartrate 5 mg 12/27/18 18:55 12/29/18 05:41 Lopressor IV 5 mg Q5MIN PRN Administration increased heart rate Metoprolol Tartrate 100 mg 12/31/18 22:00 01/09/19 21:13 Lopressor PO 100 mg BID SANCHEZ Administration Ondansetron HCl 4 mg 12/26/18 21:40 Zofran IV Q8H PRN Nausea And Vomiting Oxycodone/Acetaminophen 1 tab 01/05/19 08:30 01/10/19 08:07 Percocet 5/325 PO 1 tab Q6H PRN Administration Pain, Moderate (4-6) Polyethylene Glycol 17 gm 12/27/18 10:00 01/09/19 10:49 Miralax 3350 PO Not Given QDAY SANCHEZ Risperidone 0.5 mg 12/26/18 22:00 01/09/19 21:13 Risperdal PO 0.5 mg QHS SANCHEZ Administration Risperidone 1 mg 12/27/18 10:00 01/09/19 11:29 Risperdal PO 1 mg QAM SANCHEZ Administration Sertraline HCl 100 mg 12/27/18 10:00 01/09/19 11:29 Zoloft PO 100 mg QDAY SANCHEZ Administration Simple Syrup 15 ml 01/03/19 13:07 Simple Syrup FEEDTUBE PRN PRN Hypoglycemia Simple Syrup 30 ml 01/03/19 13:07 Simple Syrup FEEDTUBE PRN PRN Hypoglycemia Sodium Bicarbonate 325 mg 01/03/19 13:07 Sodium Bicarbonate FEEDTUBE PRN PRN For Clogged Feeding Tube Sodium Chloride 10 ml 12/26/18 22:00 01/09/19 21:20 Sodium Chloride Flush Syringe 10 Ml IV 10 ml BID SANCHEZ Administration Sodium Chloride 10 ml 12/26/18 21:40 01/03/19 22:02 Sodium Chloride Flush Syringe 10 Ml IV 10 ml PRN PRN Administration LINE FLUSH Sodium Hypochlorite 1 applic 01/01/19 15:31 01/09/19 18:00 Dakin's Half Strength TP 1 applicatio Q12H PRN Administration Wound Care
[2019-01-10] MEDS: ZOLOFT PO SCH (11:30)
[2019-01-10] MEDS: FOLVITE PO SCH (11:30)
[2019-01-10] MEDS: COLACE PO SCH (11:30)
[2019-01-10] MEDS: PEPCID PO SCH (11:31)
[2019-01-10] MEDS: RisperDAL PO SCH ×2 (11:31→22:52)
[2019-01-10] MEDS: HALFPRIN EC PO SCH (11:31)
[2019-01-10] MEDS: MIRALAX 3350 PO SCH (11:31)
[2019-01-10] MEDS: DAKIN'S HALF STRENGTH TP PRN (12:23)
[2019-01-10] MEDS: SODIUM CHLORIDE FLUSH SYRINGE 10 ML IV SCH (12:25)
--- NOTE | 2019-01-10 13:27 | Progress Note ---
Assessment and Plan Assessment and plan: Patient is a 63-year-old -[place] man from [facility] with a plethora of co-morbidities including blindness, CVA, CHF, PPM/ICD, loop recorder since 2012 that is MRI compatible, IDDM type 2, sepsis left foot ulcer, afib, ESRD with complications on HD TTS, hypertension, AOCD and GERD who presented to [facility] with altered sensorium and decreased responsiveness. Decreased responsive and not eating at all for 2 days. Patient has failure to thrive, altered mentation and weight loss of 20 pounds since 12/08/2018. Severe Sepsis due to Necrotizing Unstagable sacral decubitus ulcer s/p OR on 01/01/2019 for open excisional debridement of necrotic and infected sacral wound noted a large amount of necrotic tissue debrided and two abscess cavities at the caudad portion of the wound with a copious amount of purulent drainage which was drained. Wound cultures 01/02/2019 ESBL Kleb, MDR Ecoli and E raffinosus resistant to penicillin: On meropenam and vanc per ID. Consult Vascular surgery for central line placement, planned for diverting colostomy, family has agreed, awaiting cardiology preop eval Acute metabolic encephalopathy due to the above Acute systolic exacerbation of CHF (congestive heart failure): treat via Ultrafiltration during HD Afib with RVR: rate control only and optimize meds per Cardiology ESRD needing dialysis: Nephology is managing, Continue hemo dialysis Insulin dependent diabetes mellitus, A1c is 4.2: insulin was dc Severe malnutrition with FTT: 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, cont oral diet, supervisor metalizing input appreciated, PEG tube placed on 01/02/19 Hypertension: Continue antihypertensives h/o Peripheral neuropathy: Continue gabapentin h/o Anemia: Continue epoetin Elevated troponin, Secondary to end-stage renal disease, chf and afib, Cardiology input appreciated DVT prophylaxis On heparin and GI prophylaxis re-consulted Cardiology for pre-op evaluation d/w Dr. Briggs, needs 2 weeks from PEG placement to perform diverting colostomy, should be done Saturday d/w Dr. Villela, Vascular surgery placed central line placement for Merem, 01/08/19 Transfused 2 units and h/h stable, follow cbc History Interval history: Patient was seen and examined. Follow-up on current diagnosis Sacral decubitus ulcer. No overnight events reported to me. Imaging, nursing note, chart, labs and old chart reviewed. Hospitalist Physical - Physical exam Narrative exam: Gen: severely chronically ill appearing, semi-comatose, mouth open, head flexed, eyes closed, unresponsive HEENT: NCAT, >right eye matted shut, OP dried out with mouth open but good oral care done. Neck: supple, no adenopathy, no thyromegaly, no JVD CVS/Heart: irregular irregular, normal S1S2, pulses present bilaterally Chest/Lungs: poor air entry, Symmetrical chest expansion, good air entry bilaterally GI/Abdomen: soft, peg in place, NTND, good bowel sounds, no guarding or rebound /Bladder: no suprapubic tenderness, no CVA or paraspinal tenderness Extermity/Skin: atrophic contracted legs MSK: doesn't follow commands Neuro: doesn't follow commands Psych: unresponsive - Constitutional Vitals: Temp Pulse Resp BP Pulse Ox 98.9 F 86 18 109/59 100 01/10/19 12:45 01/10/19 12:45 01/10/19 12:45 01/10/19 12:45 01/10/19 06:27 General appearance: Present: no acute distress, cachectic, disheveled Results - Labs CBC & Chem 7: 01/10/19 08:00 01/10/19 08:00 Labs: Laboratory Last Values WBC 8.3 K/mm3 (4.5-11.0) 01/10/19 08:00 RBC 3.09 M/mm3 (3.65-5.03) L 01/10/19 08:00 Hgb 8.5 gm/dl (11.8-15.2) L 01/10/19 08:00 Hct 25.9 % (35.5-45.6) L D 01/10/19 08:00 MCV 84 fl (84-94) 01/10/19 08:00 MCH 27 pg (28-32) L 01/10/19 08:00 MCHC 33 % (32-34) 01/10/19 08:00 RDW 18.7 % (13.2-15.2) H 01/10/19 08:00 Plt Count 205 K/mm3 (140-440) 01/10/19 08:00 Lymph % (Auto) 5.8 % (13.4-35.0) L 01/07/19 00:45 [place] % (Auto) 6.0 % (0.0-7.3) 01/07/19 00:45 Eos % (Auto) 3.8 % (0.0-4.3) 01/07/19 00:45 Baso % (Auto) 0.2 % (0.0-1.8) 01/07/19 00:45 Lymph # 0.5 K/mm3 (1.2-5.4) L 01/07/19 00:45 [place] # 0.5 K/mm3 (0.0-0.8) 01/07/19 00:45 Eos # 0.3 K/mm3 (0.0-0.4) 01/07/19 00:45 Baso # 0.0 K/mm3 (0.0-0.1) 01/07/19 00:45 Add Manual Diff Complete 01/03/19 17:16 Total Counted 100 01/03/19 17:16 Seg Neutrophils % 84.2 % (40.0-70.0) H 01/07/19 00:45 Seg Neuts % (Manual) 96.0 % (40.0-70.0) H 01/03/19 17:16 0 % 01/03/19 17:16 2.0 % (13.4-35.0) L 01/03/19 17:16 Reactive Lymphs % (Man) 0 % 01/03/19 17:16 2.0 % (0.0-7.3) 01/03/19 17:16 0 % (0.0-4.3) 01/03/19 17:16 0 % (0.0-1.8) 01/03/19 17:16 0 % 01/03/19 17:16 0 % 01/03/19 17:16 0 % 01/03/19 17:16 0 % 01/03/19 17:16 Nucleated RBC % Not Reportable 01/03/19 17:16 Seg Neutrophils # 6.9 K/mm3 (1.8-7.7) 01/07/19 00:45 Seg Neutrophils # Man 10.8 K/mm3 (1.8-7.7) H 01/03/19 17:16 Band Neutrophils # 0.0 K/mm3 01/03/19 17:16 0.2 K/mm3 (1.2-5.4) L 01/03/19 17:16 Abs React Lymphs (Man) 0.0 K/mm3 01/03/19 17:16 0.2 K/mm3 (0.0-0.8) 01/03/19 17:16 0.0 K/mm3 (0.0-0.4) 01/03/19 17:16 0.0 K/mm3 (0.0-0.1) 01/03/19 17:16 0.0 K/mm3 01/03/19 17:16 0.0 K/mm3 01/03/19 17:16 0.0 K/mm3 01/03/19 17:16 Blast Cells # 0.0 K/mm3 01/03/19 17:16 WBC Morphology Not Reportable 01/03/19 17:16 Hypersegmented Neuts Not Reportable 01/03/19 17:16 Hyposegmented Neuts Not Reportable 01/03/19 17:16 Hypogranular Neuts Not Reportable 01/03/19 17:16 Not Reportable 01/03/19 17:16 Not Reportable 01/03/19 17:16 Not Reportable 01/03/19 17:16 Not Reportable 01/03/19 17:16 Not Reportable 01/03/19 17:16 Not Reportable 01/03/19 17:16 Consistent w auto 01/03/19 17:16 Not Reportable 01/03/19 17:16 Plt Clumps, EDTA Not Reportable 01/03/19 17:16 Not Reportable 01/03/19 17:16 Not Reportable 01/03/19 17:16 Not Reportable 01/03/19 17:16 Plt Morphology Comment Not Reportable 01/03/19 17:16 RBC Morphology Not Reportable 01/03/19 17:16 Dimorphic RBCs Not Reportable 01/03/19 17:16 Not Reportable 01/03/19 17:16 1+ 01/03/19 17:16 Few 01/03/19 17:16 1+ 01/03/19 17:16 Not Reportable 01/03/19 17:16 Not Reportable 01/03/19 17:16 Not Reportable 01/03/19 17:16 Not Reportable 01/03/19 17:16 Not Reportable 01/03/19 17:16 Few 01/03/19 17:16 Not Reportable 01/03/19 17:16 Few 01/03/19 17:16 Not Reportable 01/03/19 17:16 Not Reportable 01/03/19 17:16 Not Reportable 01/03/19 17:16 Not Reportable 01/03/19 17:16 Not Reportable 01/03/19 17:16 Not Reportable 01/03/19 17:16 Not Reportable 01/03/19 17:16 Acanthocytes (Spur) Not Reportable 01/03/19 17:16 Rouleaux Not Reportable 01/03/19 17:16 Not Reportable 01/03/19 17:16 Not Reportable 01/03/19 17:16 Not Reportable 01/03/19 17:16 Not Reportable 01/03/19 17:16 Hem Pathologist Commnt No 01/03/19 17:16 PT 18.0 Sec. (12.2-14.9) H 01/02/19 05:39 INR 1.39 (0.87-1.13) H 01/02/19 05:39 Sodium 133 mmol/L (137-145) L 01/10/19 08:00 Potassium 4.8 mmol/L (3.6-5.0) 01/10/19 08:00 Chloride 94.8 mmol/L (98-107) L 01/10/19 08:00 Carbon Dioxide 27 mmol/L (22-30) 01/10/19 08:00 16 mmol/L 01/10/19 08:00 BUN 37 mg/dL (9-20) H 01/10/19 08:00 2.9 mg/dL (0.8-1.5) H 01/10/19 08:00 Estimated GFR 27 ml/min 01/10/19 08:00 13 % 01/10/19 08:00 Glucose 132 mg/dL (75-100) H 01/10/19 08:00 POC Glucose 89 (70-105) 01/10/19 05:25 < 4.2 % (4-6) 12/26/18 17:12 Lactic Acid 1.10 mmol/L (0.7-2.0) 12/27/18 07:04 Calcium 8.8 mg/dL (8.4-10.2) 01/10/19 08:00 Phosphorus 2.90 mg/dL (2.5-4.5) D 01/05/19 04:56 Magnesium 2.00 mg/dL (1.7-2.3) 01/05/19 04:56 0.20 mg/dL (0.1-1.2) 01/07/19 11:16 AST 12 units/L (5-40) 01/07/19 11:16 ALT < 5 units/L (7-56) L 01/07/19 11:16 92 units/L (35-129) 01/07/19 11:16 29 units/L (55-170) L 12/26/18 17:12 0.158 ng/mL (0.00-0.029) H* 12/26/18 17:12 5.7 g/dL (6.3-8.2) L 01/07/19 11:16 2.0 g/dL (3.9-5) L 01/07/19 11:16 0.5 % 01/07/19 11:16 Triglycerides 75 mg/dL (2-149) 12/26/18 17:12 Cholesterol 109 mg/dL (50-199) 12/26/18 17:12 43 mg/dL (50-130) L 12/26/18 17:12 41 mg/dL (40-59) 12/26/18 17:12 2.65 % 12/26/18 17:12 PTH Intact 178.6 pg/mL (15-65) H 01/01/19 17:32 Random Vancomycin 9.1 ug/mL (0-40.0) 01/02/19 05:39 Blood Type O POSITIVE 01/09/19 10:50 Antibody Screen Negative 01/09/19 10:50 Crossmatch See Detail 01/09/19 10:50 Active Medications - Current Medications Current Medications: Generic Name Dose Route Start Last Admin Trade Name Freq PRN Reason Stop Dose Admin Acetaminophen 650 mg 12/26/18 21:40 01/09/19 06:13 Tylenol PO 650 mg Q4H PRN Administration Pain MILD(1-3)/Fever >100.5/HILL Lipase/Protease/Amylase 1 each 01/03/19 13:07 Pancreaze 10,500 Unit FEEDTUBE PRN PRN For Clogged Feeding Tube Aspirin 81 mg 12/27/18 10:00 01/10/19 11:31 Halfprin Ec PO 81 mg DAILY SANCHEZ Administration Epoetin Solitario 20,000 unit 01/05/19 11:03 01/06/19 17:10 Procrit IV 20,000 unit UMA PRN Administration hemodialysis Famotidine 20 mg 12/27/18 10:00 01/10/19 11:31 Pepcid PO 20 mg DAILY SANCHEZ Administration Folic Acid 1 mg 12/27/18 10:00 01/10/19 11:30 Folvite PO 1 mg DAILY SANCHEZ Administration Gabapentin 100 mg 12/26/18 22:00 01/09/19 21:13 Neurontin PO 100 mg QHS SANCHEZ Administration Hydralazine HCl 100 mg 12/26/18 22:00 01/10/19 05:13 Apresoline PO Not Given Q8HR SANCHEZ Meropenem 1,000 mg/ Sodium 100 mls @ 100 mls/hr 01/05/19 11:00 01/09/19 09:32 Chloride IV 02/16/19 10:59 100 mls/hr Q24HR SANCHEZ Administration Vancomycin HCl 1 gm in 250 mls @ 167.007 mls/hr 01/06/19 20:00 01/08/19 23:16 Vancomycin/Ns 1 Gm/250 Ml IV 02/17/19 21:30 167.007 mls/hr TuThSa SANCHEZ Administration Sodium Chloride 100 mls @ 999 mls/hr 01/08/19 08:31 Nacl 0.9% IV UMA PRN Hypotension Metoprolol Tartrate 5 mg 12/27/18 18:55 12/29/18 05:41 Lopressor IV 5 mg Q5MIN PRN Administration increased heart rate Metoprolol Tartrate 100 mg 12/31/18 22:00 01/09/19 21:13 Lopressor PO 100 mg BID SANCHEZ Administration Ondansetron HCl 4 mg 12/26/18 21:40 01/10/19 12:23 Zofran IV 4 mg Q8H PRN Administration Nausea And Vomiting Oxycodone/Acetaminophen 1 tab 01/05/19 08:30 01/10/19 08:07 Percocet 5/325 PO 1 tab Q6H PRN Administration Pain, Moderate (4-6) Risperidone 0.5 mg 12/26/18 22:00 01/09/19 21:13 Risperdal PO 0.5 mg QHS SANCHEZ Administration Risperidone 1 mg 12/27/18 10:00 01/10/19 11:31 Risperdal PO 1 mg QAM SANCHEZ Administration Sertraline HCl 100 mg 12/27/18 10:00 01/10/19 11:30 Zoloft PO 100 mg QDAY SANCHEZ Administration Simple Syrup 15 ml 01/03/19 13:07 Simple Syrup FEEDTUBE PRN PRN Hypoglycemia Simple Syrup 30 ml 01/03/19 13:07 Simple Syrup FEEDTUBE PRN PRN Hypoglycemia Sodium Bicarbonate 325 mg 01/03/19 13:07 Sodium Bicarbonate FEEDTUBE PRN PRN For Clogged Feeding Tube Sodium Chloride 10 ml 12/26/18 22:00 01/10/19 12:25 Sodium Chloride Flush Syringe 10 Ml IV 10 ml BID SANCHEZ Administration Sodium Chloride 10 ml 12/26/18 21:40 01/03/19 22:02 Sodium Chloride Flush Syringe 10 Ml IV 10 ml PRN PRN Administration LINE FLUSH Sodium Hypochlorite 1 applic 01/01/19 15:31 01/10/19 12:23 Dakin's Half Strength TP 1 applicatio Q12H PRN Administration Wound Care Nutrition/Malnutrition Assess - Dietary Evaluation Nutrition/Malnutrition Findings: Nutrition Notes Start: 12/27/18 17:15 Freq: Status: Active Protocol: Document 01/09/19 17:07 RM (Rec: 01/09/19 17:17 [id number]) Nutrition Notes Initial or Follow up Reassessment Current Diagnosis CKD (stage V CKD),Diabetes, Sepsis,Hypertension Other Pertinent Diagnosis Hx CVA,S/P PEG, Sacral wound, FTT, acute encephalopathy Current Diet TF (blank) Labs/Tests Reviewed Pertinent Medications Reviewed Height 5 ft 7 in Weight 84 kg [place] Body Weight (kg) 67.27 BMI 29.0 Subjective/Other Information Consulted for TF recommendation. Renal diet D/C'd. Per nurse pt has Hx of refusing to eat at times. Burn Absent Trauma Absent #2 Nutrition Diagnosis Increased nutrient needs ( specify in comment below) Diagnosis Progress(for reassessment Continues documentation) #1 Nutrition Diagnosis Inadequate oral intake Diagnosis Progress(for reassessment Continues documentation) Is patient on ventilator? No Is Patient Ambulatory and/or Out of Bed No REE-([facility]-confined to bed) 1911.492 Kcal/Kg value to use for calculation 17 Approximate Energy Requirements Using 1428 kcal/Kg Calculation Used for Recommendations [facility] Additional Notes Pro needs 1.2-1.4g/k- 118g/day Fluid needs 1-1.5L/day Nutrition Intervention Nutrition Support: Resume Glucerna 1.2 at 65 ml/ hr. Water flush of 100 mls q 4 hrs . Kcal 1,872 Protein (gm) 94 Carbohydrates (gm) 179 Fat (gm) 94 Fluid (mL) 1,256 Fiber (gm) 25 Goal #1 Meet at least 75% of calorie and protein needs via TF Anticipated Discharge Needs: TF Follow-Up By: 01/16/19 Additional Comments Follow for TF tolerance
[2019-01-10] MEDS: PROCRIT IV PRN (13:54)
[2019-01-10] MEDS: LOPRESSOR PO SCH ×2 (18:24→22:54)
[2019-01-10] MEDS: MERREM 1,000 MG in NACL 0.9% 100 ML IV SCH (18:26)
[2019-01-10] MEDS: TYLENOL PO PRN (18:33)
--- NOTE | 2019-01-10 21:13 | XRay Report ---
PROCEDURE: XR PELVIS 1-2V TECHNIQUE: AP view of the pelvis HISTORY: pre-op assess for stool impaction COMPARISONS: None . FINDINGS: Mild stool is present in the descending colon. No significant stool is present in the rectum. No evidence for acute fracture or dislocation is seen. Joint spaces are maintained. Sacroiliac joints are normal. The soft demonstrate bilateral vascular calcifications. Bony mineralization is normal. S purring off the superior acetabular margins are present bilaterally. IMPRESSION: No acute soft tissue or bony abnormality noted in pelvis. Mild stool is present in the descending col on. This document is electronically signed by Nubia Dolan MD., January 10 2019 09:11:34 PM ET
[2019-01-10] MEDS: NEURONTIN PO SCH (22:52)
[2019-01-10] MEDS: VANCOMYCIN/NS 1 GM/250 ML 1 GM/250 ML BAG IV SCH (23:03)
[2019-01-11] MEDS: APRESOLINE PO SCH ×3 (06:16→22:41)
[2019-01-11] MEDS: SODIUM CHLORIDE FLUSH SYRINGE 10 ML IV SCH ×2 (06:17→11:27)
[2019-01-11] MEDS: PERCOCET 5/325 PO PRN ×2 (08:34→18:42)
--- NOTE | 2019-01-11 10:51 | Progress Note ---
Assessment and Plan - Patient Problems (1) Decubitus ulcer of sacral region, unstageable Current Visit: Yes Status: Acute Plan to address problem: Pt. stable. No new issues. Plan for lap diverting colostomy tomorrow. Pre-op orders entered. Please call with questions. time=10min Subjective Date of service: 01/11/19 Patient Reports: Positive: no new complaints Objective Vital Signs - 12hr 01/10/19 01/11/19 01/11/19 22:54 05:27 08:34 Temperature 97.6 F Pulse Rate 96 H 93 H Respiratory 20 20 Rate Blood Pressure 137/80 128/73 O2 Sat by Pulse 100 Oximetry - General physical appearance no distress, no pain, other (able to answer basic questions today) - Respiratory normal expansion, normal respiratory effort - Abdomen soft, not tender, not distended, not surgical scars, other (PEG in place) - Integumentary no rash, no growths, no abnormal pigmentation - Labs 01/10/19 08:00 01/10/19 08:00
--- NOTE | 2019-01-11 11:03 | Progress Note ---
Subjective Principal diagnosis: AMS; AFib Interval history: Patient was seen today for follow-up on multiple renal related issues Events of this hospitalization noted Blood pressure is currently well controlled Pending diverging colostomy Patient is on dialysis Saturday Vitals labs intake output medications were reviewed Social history: Reviewed Allergies: Reviewed Family history: Reviewed Physical examination HEENT: Oral mucosa moist no pallor or icterus Neck: Supple no JVD Chest: Clear to auscultation anteriorly CVS: Regular rate and rhythm S1 and S2 heard Abdomen: Soft nontender no suprapubic masses no organomegaly appreciable Extremity: Dry skin less than 1+ peripheral edema Chronic upper extremity swelling Musculoskeletal: No joint effusion noted in knees and ankle Neurological: Alert awake Dermatology: No petechial rashes Psychiatry: No evidence of any agitation and aggression noted Assessment and plan; ESRD continue with hemodialysis treatment 3 times per week Dialysis access is a central venous catheter, patient is not a suitable candidate for fistula Chronic upper extremity swelling Pending diverging colostomy Anemia in end-stage renal disease, secondary hyperparathyroidism, Monitor dialysis related labs Cardiomyopathy ejection fraction 30% range December 2018 PTH is 178, B12 603 folic acid more than 20 iron saturation 32% in October 2018 Overall prognosis very poor mortality risk remains high due to dialysis status and many comorbidities We'll continue to follow and make recommendation from renal standpoint Objective - Vital Signs Vital signs: Vital Signs - 12hr 01/11/19 01/11/19 05:27 08:34 Temperature 97.6 F Pulse Rate 93 H Respiratory 20 20 Rate Blood Pressure 128/73 O2 Sat by Pulse 100 Oximetry - Lab 01/10/19 08:00 01/10/19 08:00 Most recent lab results Calcium 8.8 mg/dL (8.4-10.2) 01/10/19 08:00 Phosphorus 2.90 mg/dL (2.5-4.5) D 01/05/19 04:56 Magnesium 2.00 mg/dL (1.7-2.3) 01/05/19 04:56 Medications & Allergies - Medications Allergies/Adverse Reactions: Allergies haloperidol [From Haldol] Adverse Reaction (Verified 03/13/18 12:10) Unknown haloperidol lactate [From Haldol] Adverse Reaction (Verified 03/13/18 12:10) Unknown Home Medications: Home Medications Medication Instructions Recorded Confirmed Last Taken Type risperiDONE [RisperDAL] 1 mg PO QAM 03/13/18 12/27/18 Unknown History Sertraline [Zoloft] 100 mg PO QDAY 08/26/18 12/27/18 Unknown History risperiDONE [RisperDAL] 0.5 mg PO HS 08/26/18 12/27/18 Unknown History Polyethylene Glycol 3350 [Miralax 17 gm PO QDAY #30 packet 11/05/18 12/27/18 Unknown Rx 3350] Aspirin EC 81 mg PO DAILY #30 11/19/18 12/27/18 Unknown Rx Docusate Sodium [Colace CAP] 100 mg PO BID #60 11/19/18 12/27/18 Unknown Rx Folic Acid [Folvite] 1 mg PO DAILY #30 tab 11/19/18 12/27/18 Unknown Rx Famotidine [Pepcid] 20 mg PO DAILY tablet 12/08/18 12/27/18 Unknown Rx Gabapentin [Neurontin] 100 mg PO QHS capsule 12/08/18 12/27/18 Unknown Rx Metoprolol [Lopressor TAB] 50 mg PO BID 30 Days tablet 12/08/18 12/27/18 Unknown Rx Sevelamer Carbonate [Renvela] 800 mg PO TIDWM tablet 12/08/18 12/27/18 Unknown Rx hydrALAZINE [Apresoline TAB] 100 mg PO Q8HR #120 tablet 12/08/18 12/27/18 Unknown Rx Acetaminophen [Acetaminophen TAB] 650 mg PO Q12H PRN 12/15/18 12/27/18 Unknown History Amino Acids/Protein Hydrolys 30 ml PO BID 12/15/18 12/27/18 Unknown History [Pro-Stat Sugar Free Liquid] Glucagon,Human Recombinant 1 mg IJ Q15MIN PRN 12/15/18 12/27/18 Unknown History [Glucagon Emergency Kit] Insulin Aspart [NovoLOG 100 See Protocol SQ QWEEK 12/15/18 12/27/18 Unknown History UNITS/ML VIAL] Epoetin Solitario 10,000 Unit [Procrit] 10,000 unit IV UMA PRN vial 12/18/18 12/27/18 Unknown Rx Lispro Insulin [HumaLOG] 0 unit SUB-Q ACHS units 12/18/18 12/27/18 Unknown Rx risperiDONE [RisperDAL] 0.5 mg PO QHS tablet 12/18/18 12/27/18 Unknown Rx Active Medications: Generic Name Dose Route Start Last Admin Trade Name Freq PRN Reason Stop Dose Admin Acetaminophen 650 mg 12/26/18 21:40 01/10/19 18:33 Tylenol PO 650 mg Q4H PRN Administration Pain MILD(1-3)/Fever >100.5/HILL Lipase/Protease/Amylase 1 each 01/03/19 13:07 Pancrejewel Barrientos 10,500 Unit FEEDTUBE PRN PRN For Clogged Feeding Tube Aspirin 81 mg 12/27/18 10:00 01/10/19 11:31 Halfprin Ec PO 81 mg DAILY SANCHEZ Administration Epoetin Solitario 20,000 unit 01/05/19 11:03 01/10/19 13:54 Procrit IV 20,000 unit UMA PRN Administration hemodialysis Famotidine 20 mg 12/27/18 10:00 01/10/19 11:31 Pepcid PO 20 mg DAILY SANCHEZ Administration Folic Acid 1 mg 12/27/18 10:00 01/10/19 11:30 Folvite PO 1 mg DAILY SANCHEZ Administration Gabapentin 100 mg 12/26/18 22:00 01/10/19 22:52 Neurontin PO 100 mg QHS SANCHEZ Administration Hydralazine HCl 100 mg 12/26/18 22:00 01/11/19 06:16 Apresoline PO 100 mg Q8HR SANCHEZ Administration Meropenem 1,000 mg/ Sodium 100 mls @ 100 mls/hr 01/05/19 11:00 01/10/19 18:26 Chloride IV 02/16/19 10:59 100 mls/hr Q24HR SANCHEZ Administration Vancomycin HCl 1 gm in 250 mls @ 167.007 mls/hr 01/06/19 20:00 01/10/19 23:03 Vancomycin/Ns 1 Gm/250 Ml IV 02/17/19 21:30 167.007 mls/hr TuThSa SANCHEZ Administration Sodium Chloride 100 mls @ 999 mls/hr 01/08/19 08:31 Nacl 0.9% IV UMA PRN Hypotension Metoprolol Tartrate 5 mg 12/27/18 18:55 12/29/18 05:41 Lopressor IV 5 mg Q5MIN PRN Administration increased heart rate Metoprolol Tartrate 100 mg 12/31/18 22:00 01/10/19 22:54 Lopressor PO 100 mg BID SANCHEZ Administration Ondansetron HCl 4 mg 12/26/18 21:40 01/10/19 12:23 Zofran IV 4 mg Q8H PRN Administration Nausea And Vomiting Oxycodone/Acetaminophen 1 tab 01/05/19 08:30 01/11/19 08:34 Percocet 5/325 PO 1 tab Q6H PRN Administration Pain, Moderate (4-6) Risperidone 0.5 mg 12/26/18 22:00 01/10/19 22:52 Risperdal PO 0.5 mg QHS SANCHEZ Administration Risperidone 1 mg 12/27/18 10:00 01/10/19 11:31 Risperdal PO 1 mg QAM SANCHEZ Administration Sertraline HCl 100 mg 12/27/18 10:00 01/10/19 11:30 Zoloft PO 100 mg QDAY SANCHEZ Administration Simple Syrup 15 ml 01/03/19 13:07 Simple Syrup FEEDTUBE PRN PRN Hypoglycemia Simple Syrup 30 ml 01/03/19 13:07 Simple Syrup FEEDTUBE PRN PRN Hypoglycemia Sodium Bicarbonate 325 mg 01/03/19 13:07 Sodium Bicarbonate FEEDTUBE PRN PRN For Clogged Feeding Tube Sodium Chloride 10 ml 12/26/18 22:00 01/11/19 06:17 Sodium Chloride Flush Syringe 10 Ml IV 10 ml BID SANCHEZ Administration Sodium Chloride 10 ml 12/26/18 21:40 01/03/19 22:02 Sodium Chloride Flush Syringe 10 Ml IV 10 ml PRN PRN Administration LINE FLUSH Sodium Hypochlorite 1 applic 01/01/19 15:31 01/10/19 12:23 Dakin's Half Strength TP 1 applicatio Q12H PRN Administration Wound Care
[2019-01-11] MEDS: MERREM 1,000 MG in NACL 0.9% 100 ML IV SCH (11:26)
[2019-01-11] MEDS: FOLVITE PO SCH (11:26)
[2019-01-11] MEDS: HALFPRIN EC PO SCH (11:26)
[2019-01-11] MEDS: ZOLOFT PO SCH (11:26)
[2019-01-11] MEDS: RisperDAL PO SCH ×2 (11:27→22:42)
[2019-01-11] MEDS: PEPCID PO SCH (11:27)
[2019-01-11] MEDS: LOPRESSOR PO SCH ×2 (11:27→22:41)
--- NOTE | 2019-01-11 12:52 | Progress Note ---
Assessment and Plan Assessment and plan: Patient is a 63-year-old -[place] Citizen man from [facility] with a plethora of co-morbidities including blindness, CVA, CHF, PPM/ICD, loop recorder since 2012 that is MRI compatible, IDDM type 2, sepsis left foot ulcer, afib, ESRD with complications on HD TTS, hypertension, AOCD and GERD who presented to [facility] with altered sensorium and decreased responsiveness. Decreased responsive and not eating at all for 2 days. Patient has failure to thrive, altered mentation and weight loss of 20 pounds since 12/08/2018. Severe Sepsis due to Necrotizing Unstagable sacral decubitus ulcer s/p OR on 01/01/2019 for open excisional debridement of necrotic and infected sacral wound noted a large amount of necrotic tissue debrided and two abscess cavities at the caudad portion of the wound with a copious amount of purulent drainage which was drained. Wound cultures 01/02/2019 ESBL Kleb, MDR Ecoli and E raffinosus resistant to penicillin: On meropenam and vanc per ID. 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 Briggs, needs 2 weeks from PEG placement to perform diverting colostomy, should be done Saturday d/w Dr. Villela, Vascular surgery placed central line placement for Merem, 01/08/19 Transfused 2 units and h/h stable, follow cbc History Interval history: Patient was seen and examined. Follow-up on current diagnosis Sacral decubitus ulcer. No overnight events reported to me. Imaging, nursing note, chart, labs and old chart reviewed. Hospitalist Physical - Physical exam Narrative exam: Gen: severely chronically ill appearing, semi-comatose, mouth open, head flexed, eyes closed, unresponsive HEENT: NCAT, >right eye matted shut, OP dried out with mouth open but good oral care done. Neck: supple, no adenopathy, no thyromegaly, no JVD CVS/Heart: irregular irregular, normal S1S2, pulses present bilaterally Chest/Lungs: poor air entry, Symmetrical chest expansion, good air entry bilaterally GI/Abdomen: soft, peg in place, NTND, good bowel sounds, no guarding or rebound /Bladder: no suprapubic tenderness, no CVA or paraspinal tenderness Extermity/Skin: atrophic contracted legs MSK: doesn't follow commands Neuro: doesn't follow commands Psych: unresponsive - Constitutional Vitals: Temp Pulse Resp BP Pulse Ox 97.6 F 93 H 20 128/73 100 01/11/19 05:27 01/11/19 11:27 01/11/19 08:34 01/11/19 11:27 01/11/19 05:27 General appearance: Present: no acute distress, cachectic, disheveled Results - Labs CBC & Chem 7: 01/10/19 08:00 01/10/19 08:00 Labs: Laboratory Last Values WBC 8.3 K/mm3 (4.5-11.0) 01/10/19 08:00 RBC 3.09 M/mm3 (3.65-5.03) L 01/10/19 08:00 Hgb 8.5 gm/dl (11.8-15.2) L 01/10/19 08:00 Hct 25.9 % (35.5-45.6) L D 01/10/19 08:00 MCV 84 fl (84-94) 01/10/19 08:00 MCH 27 pg (28-32) L 01/10/19 08:00 MCHC 33 % (32-34) 01/10/19 08:00 RDW 18.7 % (13.2-15.2) H 01/10/19 08:00 Plt Count 205 K/mm3 (140-440) 01/10/19 08:00 Lymph % (Auto) 5.8 % (13.4-35.0) L 01/07/19 00:45 [place] % (Auto) 6.0 % (0.0-7.3) 01/07/19 00:45 Eos % (Auto) 3.8 % (0.0-4.3) 01/07/19 00:45 Baso % (Auto) 0.2 % (0.0-1.8) 01/07/19 00:45 Lymph # 0.5 K/mm3 (1.2-5.4) L 01/07/19 00:45 [place] # 0.5 K/mm3 (0.0-0.8) 01/07/19 00:45 Eos # 0.3 K/mm3 (0.0-0.4) 01/07/19 00:45 Baso # 0.0 K/mm3 (0.0-0.1) 01/07/19 00:45 Add Manual Diff Complete 01/03/19 17:16 Total Counted 100 01/03/19 17:16 Seg Neutrophils % 84.2 % (40.0-70.0) H 01/07/19 00:45 Seg Neuts % (Manual) 96.0 % (40.0-70.0) H 01/03/19 17:16 0 % 01/03/19 17:16 2.0 % (13.4-35.0) L 01/03/19 17:16 Reactive Lymphs % (Man) 0 % 01/03/19 17:16 2.0 % (0.0-7.3) 01/03/19 17:16 0 % (0.0-4.3) 01/03/19 17:16 0 % (0.0-1.8) 01/03/19 17:16 0 % 01/03/19 17:16 0 % 01/03/19 17:16 0 % 01/03/19 17:16 0 % 01/03/19 17:16 Nucleated RBC % Not Reportable 01/03/19 17:16 Seg Neutrophils # 6.9 K/mm3 (1.8-7.7) 01/07/19 00:45 Seg Neutrophils # Man 10.8 K/mm3 (1.8-7.7) H 01/03/19 17:16 Band Neutrophils # 0.0 K/mm3 01/03/19 17:16 0.2 K/mm3 (1.2-5.4) L 01/03/19 17:16 Abs React Lymphs (Man) 0.0 K/mm3 01/03/19 17:16 0.2 K/mm3 (0.0-0.8) 01/03/19 17:16 0.0 K/mm3 (0.0-0.4) 01/03/19 17:16 0.0 K/mm3 (0.0-0.1) 01/03/19 17:16 0.0 K/mm3 01/03/19 17:16 0.0 K/mm3 01/03/19 17:16 0.0 K/mm3 01/03/19 17:16 Blast Cells # 0.0 K/mm3 01/03/19 17:16 WBC Morphology Not Reportable 01/03/19 17:16 Hypersegmented Neuts Not Reportable 01/03/19 17:16 Hyposegmented Neuts Not Reportable 01/03/19 17:16 Hypogranular Neuts Not Reportable 01/03/19 17:16 Not Reportable 01/03/19 17:16 Not Reportable 01/03/19 17:16 Not Reportable 01/03/19 17:16 Not Reportable 01/03/19 17:16 Not Reportable 01/03/19 17:16 Not Reportable 01/03/19 17:16 Consistent w auto 01/03/19 17:16 Not Reportable 01/03/19 17:16 Plt Clumps, EDTA Not Reportable 01/03/19 17:16 Not Reportable 01/03/19 17:16 Not Reportable 01/03/19 17:16 Not Reportable 01/03/19 17:16 Plt Morphology Comment Not Reportable 01/03/19 17:16 RBC Morphology Not Reportable 01/03/19 17:16 Dimorphic RBCs Not Reportable 01/03/19 17:16 Not Reportable 01/03/19 17:16 1+ 01/03/19 17:16 Few 01/03/19 17:16 1+ 01/03/19 17:16 Not Reportable 01/03/19 17:16 Not Reportable 01/03/19 17:16 Not Reportable 01/03/19 17:16 Not Reportable 01/03/19 17:16 Not Reportable 01/03/19 17:16 Few 01/03/19 17:16 Not Reportable 01/03/19 17:16 Few 01/03/19 17:16 Not Reportable 01/03/19 17:16 Not Reportable 01/03/19 17:16 Not Reportable 01/03/19 17:16 Not Reportable 01/03/19 17:16 Not Reportable 01/03/19 17:16 Not Reportable 01/03/19 17:16 Not Reportable 01/03/19 17:16 Acanthocytes (Spur) Not Reportable 01/03/19 17:16 Rouleaux Not Reportable 01/03/19 17:16 Not Reportable 01/03/19 17:16 Not Reportable 01/03/19 17:16 Not Reportable 01/03/19 17:16 Not Reportable 01/03/19 17:16 Hem Pathologist Commnt No 01/03/19 17:16 PT 18.0 Sec. (12.2-14.9) H 01/02/19 05:39 INR 1.39 (0.87-1.13) H 01/02/19 05:39 Sodium 133 mmol/L (137-145) L 01/10/19 08:00 Potassium 4.8 mmol/L (3.6-5.0) 01/10/19 08:00 Chloride 94.8 mmol/L (98-107) L 01/10/19 08:00 Carbon Dioxide 27 mmol/L (22-30) 01/10/19 08:00 16 mmol/L 01/10/19 08:00 BUN 37 mg/dL (9-20) H 01/10/19 08:00 2.9 mg/dL (0.8-1.5) H 01/10/19 08:00 Estimated GFR 27 ml/min 01/10/19 08:00 13 % 01/10/19 08:00 Glucose 132 mg/dL (75-100) H 01/10/19 08:00 POC Glucose 120 (70-105) H 01/11/19 11:42 < 4.2 % (4-6) 12/26/18 17:12 Lactic Acid 1.10 mmol/L (0.7-2.0) 12/27/18 07:04 Calcium 8.8 mg/dL (8.4-10.2) 01/10/19 08:00 Phosphorus 2.90 mg/dL (2.5-4.5) D 01/05/19 04:56 Magnesium 2.00 mg/dL (1.7-2.3) 01/05/19 04:56 0.20 mg/dL (0.1-1.2) 01/07/19 11:16 AST 12 units/L (5-40) 01/07/19 11:16 ALT < 5 units/L (7-56) L 01/07/19 11:16 92 units/L (35-129) 01/07/19 11:16 29 units/L (55-170) L 12/26/18 17:12 0.158 ng/mL (0.00-0.029) H* 12/26/18 17:12 5.7 g/dL (6.3-8.2) L 01/07/19 11:16 2.0 g/dL (3.9-5) L 01/07/19 11:16 0.5 % 01/07/19 11:16 Triglycerides 75 mg/dL (2-149) 12/26/18 17:12 Cholesterol 109 mg/dL (50-199) 12/26/18 17:12 43 mg/dL (50-130) L 12/26/18 17:12 41 mg/dL (40-59) 12/26/18 17:12 2.65 % 12/26/18 17:12 PTH Intact 178.6 pg/mL (15-65) H 01/01/19 17:32 Random Vancomycin 15.7 ug/mL (0-40.0) 01/10/19 18:49 Blood Type O POSITIVE 01/09/19 10:50 Antibody Screen Negative 01/09/19 10:50 Crossmatch See Detail 01/09/19 10:50 Active Medications - Current Medications Current Medications: Generic Name Dose Route Start Last Admin Trade Name Freq PRN Reason Stop Dose Admin Acetaminophen 650 mg 12/26/18 21:40 01/10/19 18:33 Tylenol PO 650 mg Q4H PRN Administration Pain MILD(1-3)/Fever >100.5/HILL Lipase/Protease/Amylase 1 each 01/03/19 13:[address] 10,500 Unit FEEDTUBE PRN PRN For Clogged Feeding Tube Aspirin 81 mg 12/27/18 10:00 01/11/19 11:26 Halfprin Ec PO 81 mg DAILY SANCHEZ Administration Epoetin Solitario 20,000 unit 01/05/19 11:03 01/10/19 13:54 Procrit IV 20,000 unit UMA PRN Administration hemodialysis Famotidine 20 mg 12/27/18 10:00 01/11/19 11:27 Pepcid PO 20 mg DAILY SANCHEZ Administration Folic Acid 1 mg 12/27/18 10:00 01/11/19 11:26 Folvite PO 1 mg DAILY SANCHEZ Administration Gabapentin 100 mg 12/26/18 22:00 01/10/19 22:52 Neurontin PO 100 mg QHS SANCHEZ Administration Hydralazine HCl 100 mg 12/26/18 22:00 01/11/19 06:16 Apresoline PO 100 mg Q8HR SANCHEZ Administration Meropenem 1,000 mg/ Sodium 100 mls @ 100 mls/hr 01/05/19 11:00 01/11/19 11:26 Chloride IV 02/16/19 10:59 100 mls/hr Q24HR SANCHEZ Administration Vancomycin HCl 1 gm in 250 mls @ 167.007 mls/hr 01/06/19 20:00 01/10/19 23:03 Vancomycin/Ns 1 Gm/250 Ml IV 02/17/19 21:30 167.007 mls/hr TuThSa SANCHEZ Administration Sodium Chloride 100 mls @ 999 mls/hr 01/08/19 08:31 Nacl 0.9% IV UMA PRN Hypotension Cefazolin Sodium 2 gm/ Sodium 100 mls @ 200 mls/hr 01/12/19 09:00 Chloride IV 01/12/19 09:29 PREOP ONE Protocol Metoprolol Tartrate 5 mg 12/27/18 18:55 12/29/18 05:41 Lopressor IV 5 mg Q5MIN PRN Administration increased heart rate Metoprolol Tartrate 100 mg 12/31/18 22:00 01/11/19 11:27 Lopressor PO 100 mg BID SANCHEZ Administration Ondansetron HCl 4 mg 12/26/18 21:40 01/10/19 12:23 Zofran IV 4 mg Q8H PRN Administration Nausea And Vomiting Oxycodone/Acetaminophen 1 tab 01/05/19 08:30 01/11/19 08:34 Percocet 5/325 PO 1 tab Q6H PRN Administration Pain, Moderate (4-6) Risperidone 0.5 mg 12/26/18 22:00 01/10/19 22:52 Risperdal PO 0.5 mg QHS SANCHEZ Administration Risperidone 1 mg 12/27/18 10:00 01/11/19 11:27 Risperdal PO 1 mg QAM SANCHEZ Administration Sertraline HCl 100 mg 12/27/18 10:00 01/11/19 11:26 Zoloft PO 100 mg QDAY SANCHEZ Administration Simple Syrup 15 ml 01/03/19 13:07 Simple Syrup FEEDTUBE PRN PRN Hypoglycemia Simple Syrup 30 ml 01/03/19 13:07 Simple Syrup FEEDTUBE PRN PRN Hypoglycemia Sodium Bicarbonate 325 mg 01/03/19 13:07 Sodium Bicarbonate FEEDTUBE PRN PRN For Clogged Feeding Tube Sodium Chloride 10 ml 12/26/18 22:00 01/11/19 11:27 Sodium Chloride Flush Syringe 10 Ml IV 10 ml BID SANCHEZ Administration Sodium Chloride 10 ml 12/26/18 21:40 01/03/19 22:02 Sodium Chloride Flush Syringe 10 Ml IV 10 ml PRN PRN Administration LINE FLUSH Sodium Hypochlorite 1 applic 01/01/19 15:31 01/10/19 12:23 Dakin's Half Strength TP 1 applicatio Q12H PRN Administration Wound Care Nutrition/Malnutrition Assess - Dietary Evaluation Nutrition/Malnutrition Findings: Nutrition Notes Start: 12/27/18 17:15 Freq: Status: Active Protocol: Document 01/09/19 17:07 (Rec: 01/09/19 17:17 [email or web address]) Nutrition Notes Initial or Follow up Reassessment Current Diagnosis CKD (stage V CKD),Diabetes, Sepsis,Hypertension Other Pertinent Diagnosis Hx CVA,S/P PEG, Sacral wound, FTT, acute encephalopathy Current Diet TF (blank) Labs/Tests Reviewed Pertinent Medications Reviewed Height 5 ft 7 in Weight 84 kg [place] Body Weight (kg) 67.27 BMI 29.0 Subjective/Other Information Consulted for TF recommendation. Renal diet D/C'd. Per nurse pt has Hx of refusing to eat at times. Burn Absent Trauma Absent #2 Nutrition Diagnosis Increased nutrient needs ( specify in comment below) Diagnosis Progress(for reassessment Continues documentation) #1 Nutrition Diagnosis Inadequate oral intake Diagnosis Progress(for reassessment Continues documentation) Is patient on ventilator? No Is Patient Ambulatory and/or Out of Bed No REE-([facility] [place]-confined to bed) 1911.492 Kcal/Kg value to use for calculation 17 Approximate Energy Requirements Using 1428 kcal/Kg Calculation Used for Recommendations [facility] Additional Notes Pro needs 1.2-1.4g/k- 118g/day Fluid needs 1-1.5L/day Nutrition Intervention Nutrition Support: Resume Glucerna 1.2 at 65 ml/ hr. Water flush of 100 mls q 4 hrs . Kcal 1,872 Protein (gm) 94 Carbohydrates (gm) 179 Fat (gm) 94 Fluid (mL) 1,256 Fiber (gm) 25 Goal #1 Meet at least 75% of calorie and protein needs via TF Anticipated Discharge Needs: TF Follow-Up By: 01/16/19 Additional Comments Follow for TF tolerance
[2019-01-11] MEDS: NEURONTIN PO SCH (22:42)
[2019-01-12] MEDS: SODIUM CHLORIDE FLUSH SYRINGE 10 ML IV SCH ×2 (05:22→10:34)
[2019-01-12] MEDS: APRESOLINE PO SCH ×2 (07:44→14:30)
[2019-01-12 08:24] LABS: Hematocrit 27.2 % (35.5-45.6); Hemoglobin 8.2 gm/dl (11.8-15.2); Mean Corpuscular HGB Conc 30 % (32-34); Mean Corpuscular Volume 89 fl (84-94); Platelet Count 209 K/mm3 (140-440); Red Blood Count 3.06 M/mm3 (3.65-5.03)
[2019-01-12 08:43] LABS: Red Cell Distribution Width 20.2 % (13.2-15.2)
[2019-01-12 08:47] LABS: Calcium 9.1 mg/dL (8.4-10.2)
[2019-01-12] MEDS ORDERED: ceFAZolin 2 GM in NACL 0.9% 100 ML IV ONE (09:00)
--- NOTE | 2019-01-12 10:01 | Progress Note ---
Assessment and Plan Cultures: Blood cultures 12/26/2018 no growth today. Blood cultures 01/01/2019 no growth today. Wound cultures 01/02/2019 ESBL Kleb, MDR Ecoli and E raffinosus resistant to penicillin. Assessment: 63 y/o male with history of ESRD on HD, HTN, CAD S/P CABG, CVA, DM, Atrial Fib, Anemia, Hyperparathyroidism, Hypocalcemia, schizophrenia; well known to ID service from previous admission, readmitted on 12/26/2018 due to altered sensorium and decreased responsiveness for 48 hour and decreased PO intake for 2 weeks. 1) Severe Sepsis: Resolved. Etiology most likely unstagable necrotic sacral decubitus. 2) Unstagable necrotic sacral decubitus: s/p OR on 01/01/2019 for open excisional debridement of necrotic and infected sacral wound noted a large amount of necrotic tissue debrided and two abscess cavities at the caudad portion of the wound with a copious amount of purulent drainage which was drained. Wound cultures 01/02/2019 ESBL Kleb, MDR Ecoli - this will require treatment with meropenem via tunneled cathether. (meropenem cannot be given HD) Wound also grew E raffinosus - this will require treatment with Vancomycin post HD. Surgery plans for diverting colostomy today. 3) History of MSSE septicemia + MRSA foot infection. Bone scan POSITIVE for osteomyelitis 4th and 5th MT head. Treated with IV vancomcyin for total of 6 weeks until 05/05/18. 4) History of septic shock from vivi HAP vs aspiration pneumonia treated with cefepime and flagyl for 7 days. 5) Acute on chronic encephalopathy: from infection CT head chronic changes and ?mastoiditis. 6) Anemia: monitor closely Recommendations: - continue meropenem 1 gm every 24 hours, D8 - continue vancomycin renally adjusted, D14 - contact isolation -Anticipate discharge on Meropenem 1 gm IV every 24 hours via tunneled catheter and Vancomycin 1 gm post HD Saturday, and Saturday for 6 weeks ending 02-16-19 -order placed with case management -ID is signing off, please call for questions. [facility] M: [phone] O:[phone] Subjective Date of service: 01/12/19 Principal diagnosis: AMS; AFib Interval history: Patient seen and examined. Awake. Alert. Answering some questions today. No fevers. Objective - Exam Narrative Exam: General appearance: Awake. No acute distress Eyes: left eye enucleation with prosthesis HENT: Atraumatic; oropharynx clear limited Neck: Trachea midline; supple, no thyromegaly or lymphadenopathy Lungs: CTA, with normal respiratory effort and no intercostal retractions CV: RRR no murmur Abdomen: Soft, non-tender; +PEG Extremities: no edema, cyanosis Skin: sacral dec with surgical dressings Psych: calm Neuro: Awake. - Constitutional Vitals: Vital Signs Temp Pulse Resp BP Pulse Ox 98.2 F 97 H 20 143/87 99 01/12/19 06:46 01/12/19 06:46 01/12/19 06:46 01/12/19 06:46 01/12/19 06:46 Temperature -Last 24 Hours Temperature 98.2 F Temperature 99.1 F Temperature 98.0 F Temperature 98.0 F - Labs CBC & Chem 7: 01/12/19 07:46 01/12/19 07:46 Labs: Abnormal lab results 01/11/19 01/11/19 01/12/19 Range/Units 11:42 16:23 01:02 RBC (3.65-5.03) M/mm3 Hgb (11.8-15.2) gm/dl Hct (35.5-45.6) % MCH (28-32) pg MCHC (32-34) % RDW (13.2-15.2) % Sodium (137-145) mmol/L Potassium (3.6-5.0) mmol/L Chloride (98-107) mmol/L BUN (9-20) mg/dL Creatinine (0.8-1.5) mg/dL POC Glucose 120 H 122 H 108 H (70-105) 01/12/19 01/12/19 Range/Units 07:46 07:46 RBC 3.06 L (3.65-5.03) M/mm3 Hgb 8.2 L (11.8-15.2) gm/dl Hct 27.2 L (35.5-45.6) % MCH 27 L (28-32) pg MCHC 30 L (32-34) % RDW 20.2 H (13.2-15.2) % Sodium 133 L (137-145) mmol/L Potassium 5.8 H D (3.6-5.0) mmol/L Chloride 96.6 L (98-107) mmol/L BUN 36 H (9-20) mg/dL Creatinine 2.9 H (0.8-1.5) mg/dL POC Glucose (70-105)
[2019-01-12] MEDS: PEPCID PO SCH (10:33)
[2019-01-12] MEDS: FOLVITE PO SCH (10:34)
[2019-01-12] MEDS: RisperDAL PO SCH (10:34)
[2019-01-12] MEDS: LOPRESSOR PO SCH (10:34)
[2019-01-12] MEDS ORDERED: NACL 0.9% 100 ML IV PRN ×2 (10:38→10:42)
[2019-01-12] MEDS: MERREM 1,000 MG in NACL 0.9% 100 ML IV SCH (10:39)
[2019-01-12] MEDS: ZOLOFT PO SCH (10:39)
[2019-01-12] MEDS: HALFPRIN EC PO SCH (10:39)
--- NOTE | 2019-01-12 11:33 | Progress Note ---
Assessment and Plan Assessment and plan: Patient is a 63-year-old -[place] man from [facility] with a plethora of co-morbidities including blindness, CVA, CHF, PPM/ICD, loop recorder since 2013 that is MRI compatible, IDDM type 2, sepsis left foot ulcer, afib, ESRD with complications on HD TTS, hypertension, AOCD and GERD who presented to [facility] with altered sensorium and decreased responsiveness. Decreased responsive and not eating at all for 2 days. Patient has failure to thrive, altered mentation and weight loss of 20 pounds since 12/08/2018. Severe Sepsis due to Necrotizing Unstagable sacral decubitus ulcer s/p OR on 01/01/2019 for open excisional debridement of necrotic and infected sacral wound noted a large amount of necrotic tissue debrided and two abscess cavities at the caudad portion of the wound with a copious amount of purulent drainage which was drained. Wound cultures 01/02/2019 ESBL Kleb, MDR Ecoli and E raffinosus resistant to penicillin: On meropenam and vanc per ID. Consult Vascular surgery for central line placement, planned for diverting colostomy, family has agreed, Cardiology re-evaluated for surgery, input noted, high CV risk. d/w Dr. Villela, Vascular surgery placed central line placement for Merem, 01/08/19 Acute metabolic encephalopathy due to the above Acute systolic exacerbation of CHF (congestive heart failure): treat via Ultrafiltration during HD Afib with RVR: rate control only and optimize meds per Cardiology ESRD needing dialysis: Nephology is managing, Continue hemo dialysis Insulin dependent diabetes mellitus, A1c is 4.2: insulin was dc Severe malnutrition with FTT: 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, cont oral diet, [employer] emergency services [employer] input appreciated, PEG tube placed on 01/02/19 Hypertension: Continue antihypertensives h/o Peripheral neuropathy: Continue gabapentin Acute on chronic Anemia of AOCD: Continue epoetin, Transfused 2 units and h/h stable, follow cbc Elevated troponin, Secondary to end-stage renal disease, chf and afib, Cardiology input appreciated DVT prophylaxis On heparin and GI prophylaxis d/w Dr. Briggs, needs 2 weeks from PEG placement to perform diverting colostomy, should be done Today===>Dr. Briggs called me because potassium level is 5.8 and hemodialysis is not until tomorrow. So, I called Nephrology, Dr. Del Toor and I coordinated patient getting HD and going for surgery after. I then informed Dr. Briggs History Interval history: Patient was seen and examined. Follow-up on current diagnosis Sacral decubitus ulcer. No overnight events reported to me. Imaging, nursing note, chart, labs and old chart reviewed. Hospitalist Physical - Physical exam Narrative exam: Gen: severely chronically ill appearing, semi-comatose, mouth open, head flexed, eyes closed, unresponsive HEENT: NCAT, >right eye matted shut, OP dried out with mouth open but good oral care done. Neck: supple, no adenopathy, no thyromegaly, no JVD CVS/Heart: irregular irregular, normal S1S2, pulses present bilaterally Chest/Lungs: poor air entry, Symmetrical chest expansion, good air entry bilaterally GI/Abdomen: soft, peg in place, NTND, good bowel sounds, no guarding or rebound /Bladder: no suprapubic tenderness, no CVA or paraspinal tenderness Extermity/Skin: atrophic contracted legs, excoriated perineal area==> kearns in place to present this MSK: doesn't follow commands Neuro: doesn't follow commands Psych: unresponsive - Constitutional Vitals: Temp Pulse Resp BP Pulse Ox 98.2 F 92 H 20 143/87 99 01/12/19 06:46 01/12/19 10:34 01/12/19 06:46 01/12/19 06:46 01/12/19 06:46 General appearance: Present: no acute distress, cachectic, disheveled Results - Labs CBC & Chem 7: 01/12/19 07:46 01/12/19 07:46 Labs: Laboratory Last Values WBC 8.1 K/mm3 (4.5-11.0) 01/12/19 07:46 RBC 3.06 M/mm3 (3.65-5.03) L 01/12/19 07:46 Hgb 8.2 gm/dl (11.8-15.2) L 01/12/19 07:46 Hct 27.2 % (35.5-45.6) L 01/12/19 07:46 MCV 89 fl (84-94) 01/12/19 07:46 MCH 27 pg (28-32) L 01/12/19 07:46 MCHC 30 % (32-34) L 01/12/19 07:46 RDW 20.2 % (13.2-15.2) H 01/12/19 07:46 Plt Count 209 K/mm3 (140-440) 01/12/19 07:46 Lymph % (Auto) 5.8 % (13.4-35.0) L 01/07/19 00:45 [place] % (Auto) 6.0 % (0.0-7.3) 01/07/19 00:45 Eos % (Auto) 3.8 % (0.0-4.3) 01/07/19 00:45 Baso % (Auto) 0.2 % (0.0-1.8) 01/07/19 00:45 Lymph # 0.5 K/mm3 (1.2-5.4) L 01/07/19 00:45 [place] # 0.5 K/mm3 (0.0-0.8) 01/07/19 00:45 Eos # 0.3 K/mm3 (0.0-0.4) 01/07/19 00:45 Baso # 0.0 K/mm3 (0.0-0.1) 01/07/19 00:45 Add Manual Diff Complete 01/03/19 17:16 Total Counted 100 01/03/19 17:16 Seg Neutrophils % 84.2 % (40.0-70.0) H 01/07/19 00:45 Seg Neuts % (Manual) 96.0 % (40.0-70.0) H 01/03/19 17:16 0 % 01/03/19 17:16 2.0 % (13.4-35.0) L 01/03/19 17:16 Reactive Lymphs % (Man) 0 % 01/03/19 17:16 2.0 % (0.0-7.3) 01/03/19 17:16 0 % (0.0-4.3) 01/03/19 17:16 0 % (0.0-1.8) 01/03/19 17:16 0 % 01/03/19 17:16 0 % 01/03/19 17:16 0 % 01/03/19 17:16 0 % 01/03/19 17:16 Nucleated RBC % Not Reportable 01/03/19 17:16 Seg Neutrophils # 6.9 K/mm3 (1.8-7.7) 01/07/19 00:45 Seg Neutrophils # Man 10.8 K/mm3 (1.8-7.7) H 01/03/19 17:16 Band Neutrophils # 0.0 K/mm3 01/03/19 17:16 0.2 K/mm3 (1.2-5.4) L 01/03/19 17:16 Abs React Lymphs (Man) 0.0 K/mm3 01/03/19 17:16 0.2 K/mm3 (0.0-0.8) 01/03/19 17:16 0.0 K/mm3 (0.0-0.4) 01/03/19 17:16 0.0 K/mm3 (0.0-0.1) 01/03/19 17:16 0.0 K/mm3 01/03/19 17:16 0.0 K/mm3 01/03/19 17:16 0.0 K/mm3 01/03/19 17:16 Blast Cells # 0.0 K/mm3 01/03/19 17:16 WBC Morphology Not Reportable 01/03/19 17:16 Hypersegmented Neuts Not Reportable 01/03/19 17:16 Hyposegmented Neuts Not Reportable 01/03/19 17:16 Hypogranular Neuts Not Reportable 01/03/19 17:16 Not Reportable 01/03/19 17:16 Not Reportable 01/03/19 17:16 Not Reportable 01/03/19 17:16 Not Reportable 01/03/19 17:16 Not Reportable 01/03/19 17:16 Not Reportable 01/03/19 17:16 Consistent w auto 01/03/19 17:16 Not Reportable 01/03/19 17:16 Plt Clumps, EDTA Not Reportable 01/03/19 17:16 Not Reportable 01/03/19 17:16 Not Reportable 01/03/19 17:16 Not Reportable 01/03/19 17:16 Plt Morphology Comment Not Reportable 01/03/19 17:16 RBC Morphology Not Reportable 01/03/19 17:16 Dimorphic RBCs Not Reportable 01/03/19 17:16 Not Reportable 01/03/19 17:16 1+ 01/03/19 17:16 Few 01/03/19 17:16 1+ 01/03/19 17:16 Not Reportable 01/03/19 17:16 Not Reportable 01/03/19 17:16 Not Reportable 01/03/19 17:16 Not Reportable 01/03/19 17:16 Not Reportable 01/03/19 17:16 Few 01/03/19 17:16 Not Reportable 01/03/19 17:16 Few 01/03/19 17:16 Not Reportable 01/03/19 17:16 Not Reportable 01/03/19 17:16 Not Reportable 01/03/19 17:16 Not Reportable 01/03/19 17:16 Not Reportable 01/03/19 17:16 Not Reportable 01/03/19 17:16 Not Reportable 01/03/19 17:16 Acanthocytes (Spur) Not Reportable 01/03/19 17:16 Rouleaux Not Reportable 01/03/19 17:16 Not Reportable 01/03/19 17:16 Not Reportable 01/03/19 17:16 Not Reportable 01/03/19 17:16 Not Reportable 01/03/19 17:16 Hem Pathologist Commnt No 01/03/19 17:16 PT 18.0 Sec. (12.2-14.9) H 01/02/19 05:39 INR 1.39 (0.87-1.13) H 01/02/19 05:39 Sodium 133 mmol/L (137-145) L 01/12/19 07:46 Potassium 5.8 mmol/L (3.6-5.0) H D 01/12/19 07:46 Chloride 96.6 mmol/L (98-107) L 01/12/19 07:46 Carbon Dioxide 24 mmol/L (22-30) 01/12/19 07:46 18 mmol/L 01/12/19 07:46 BUN 36 mg/dL (9-20) H 01/12/19 07:46 2.9 mg/dL (0.8-1.5) H 01/12/19 07:46 Estimated GFR 27 ml/min 01/12/19 07:46 12 % 01/12/19 07:46 Glucose 84 mg/dL (75-100) 01/12/19 07:46 POC Glucose 83 (70-105) 01/12/19 11:25 < 4.2 % (4-6) 12/26/18 17:12 Lactic Acid 1.10 mmol/L (0.7-2.0) 12/27/18 07:04 Calcium 9.1 mg/dL (8.4-10.2) 01/12/19 07:46 Phosphorus 2.90 mg/dL (2.5-4.5) D 01/05/19 04:56 Magnesium 2.00 mg/dL (1.7-2.3) 01/05/19 04:56 0.20 mg/dL (0.1-1.2) 01/07/19 11:16 AST 12 units/L (5-40) 01/07/19 11:16 ALT < 5 units/L (7-56) L 01/07/19 11:16 92 units/L (35-129) 01/07/19 11:16 29 units/L (55-170) L 12/26/18 17:12 0.158 ng/mL (0.00-0.029) H* 12/26/18 17:12 5.7 g/dL (6.3-8.2) L 01/07/19 11:16 2.0 g/dL (3.9-5) L 01/07/19 11:16 0.5 % 01/07/19 11:16 Triglycerides 75 mg/dL (2-149) 12/26/18 17:12 Cholesterol 109 mg/dL (50-199) 12/26/18 17:12 43 mg/dL (50-130) L 12/26/18 17:12 41 mg/dL (40-59) 12/26/18 17:12 2.65 % 12/26/18 17:12 PTH Intact 178.6 pg/mL (15-65) H 01/01/19 17:32 Random Vancomycin 15.7 ug/mL (0-40.0) 01/10/19 18:49 Blood Type O POSITIVE 01/09/19 10:50 Antibody Screen Negative 01/09/19 10:50 Crossmatch See Detail 01/09/19 10:50 Active Medications - Current Medications Current Medications: Generic Name Dose Route Start Last Admin Trade Name Freq PRN Reason Stop Dose Admin Acetaminophen 650 mg 12/26/18 21:40 01/10/19 18:33 Tylenol PO 650 mg Q4H PRN Administration Pain MILD(1-3)/Fever >100.5/HILL Lipase/Protease/Amylase 1 each 01/03/19 13:07 [place]rient[place] 10,500 Unit FEEDTUBE PRN PRN For Clogged Feeding Tube Aspirin 81 mg 12/27/18 10:00 01/12/19 10:39 Halfprin Ec PO Not Given DAILY SANCHEZ Epoetin Solitario 20,000 unit 01/05/19 11:03 01/10/19 13:54 Procrit IV 20,000 unit UMA PRN Administration hemodialysis Famotidine 20 mg 12/27/18 10:00 01/12/19 10:33 Pepcid PO 20 mg DAILY SANCHEZ Administration Folic Acid 1 mg 12/27/18 10:00 01/12/19 10:34 Folvite PO 1 mg DAILY SANCHEZ Administration Gabapentin 100 mg 12/26/18 22:00 01/11/19 22:42 Neurontin PO 100 mg QHS SANCHEZ Administration Hydralazine HCl 100 mg 12/26/18 22:00 01/12/19 07:44 Apresoline PO Not Given Q8HR SANCHEZ Meropenem 1,000 mg/ Sodium 100 mls @ 100 mls/hr 01/05/19 11:00 01/12/19 10:39 Chloride IV 02/16/19 10:59 100 mls/hr Q24HR SANCHEZ Administration Vancomycin HCl 1 gm in 250 mls @ 167.007 mls/hr 01/06/19 20:00 01/10/19 23:03 Vancomycin/Ns 1 Gm/250 Ml IV 02/17/19 21:30 167.007 mls/hr TuThSa SANCHEZ Administration Sodium Chloride 100 mls @ 999 mls/hr 01/08/19 08:31 Nacl 0.9% IV UMA PRN Hypotension Metoprolol Tartrate 5 mg 12/27/18 18:55 12/29/18 05:41 Lopressor IV 5 mg Q5MIN PRN Administration increased heart rate Metoprolol Tartrate 100 mg 12/31/18 22:00 01/12/19 10:34 Lopressor PO 100 mg BID SANCHEZ Administration Ondansetron HCl 4 mg 12/26/18 21:40 01/10/19 12:23 Zofran IV 4 mg Q8H PRN Administration Nausea And Vomiting Oxycodone/Acetaminophen 1 tab 01/05/19 08:30 01/11/19 18:42 Percocet 5/325 PO 1 tab Q6H PRN Administration Pain, Moderate (4-6) Risperidone 0.5 mg 12/26/18 22:00 01/11/19 22:42 Risperdal PO 0.5 mg QHS SANCHEZ Administration Risperidone 1 mg 12/27/18 10:00 01/12/19 10:34 Risperdal PO 1 mg QAM SANCHEZ Administration Sertraline HCl 100 mg 12/27/18 10:00 01/12/19 10:39 Zoloft PO 100 mg QDAY SANCHEZ Administration Simple Syrup 15 ml 01/03/19 13:07 Simple Syrup FEEDTUBE PRN PRN Hypoglycemia Simple Syrup 30 ml 01/03/19 13:07 Simple Syrup FEEDTUBE PRN PRN Hypoglycemia Sodium Bicarbonate 325 mg 01/03/19 13:07 Sodium Bicarbonate FEEDTUBE PRN PRN For Clogged Feeding Tube Sodium Chloride 10 ml 12/26/18 22:00 01/12/19 10:34 Sodium Chloride Flush Syringe 10 Ml IV 10 ml BID SANCHEZ Administration Sodium Chloride 10 ml 12/26/18 21:40 01/03/19 22:02 Sodium Chloride Flush Syringe 10 Ml IV 10 ml PRN PRN Administration LINE FLUSH Sodium Hypochlorite 1 applic 01/01/19 15:31 01/10/19 12:23 Dakin's Half Strength TP 1 applicatio Q12H PRN Administration Wound Care Nutrition/Malnutrition Assess - Dietary Evaluation Nutrition/Malnutrition Findings: Nutrition Notes Start: 12/27/18 17:15 Freq: Status: Active Protocol: Document 01/09/19 17:07 RM (Rec: 01/09/19 17:17 [email or web address]) Nutrition Notes Initial or Follow up Reassessment Current Diagnosis CKD (stage V CKD),Diabetes, Sepsis,Hypertension Other Pertinent Diagnosis Hx CVA,S/P PEG, Sacral wound, FTT, acute encephalopathy Current Diet TF (blank) Labs/Tests Reviewed Pertinent Medications Reviewed Height 5 ft 7 in Weight 84 kg [place] Body Weight (kg) 67.27 BMI 29.0 Subjective/Other Information Consulted for TF recommendation. Renal diet D/C'd. Per nurse pt has Hx of refusing to eat at times. Burn Absent Trauma Absent #2 Nutrition Diagnosis Increased nutrient needs ( specify in comment below) Diagnosis Progress(for reassessment Continues documentation) #1 Nutrition Diagnosis Inadequate oral intake Diagnosis Progress(for reassessment Continues documentation) Is patient on ventilator? No Is Patient Ambulatory and/or Out of Bed No REE-([facility]-confined to bed) 1911.492 Kcal/Kg value to use for calculation 17 Approximate Energy Requirements Using 1428 kcal/Kg Calculation Used for Recommendations [facility] Additional Notes Pro needs 1.2-1.4g/k- 118g/day Fluid needs 1-1.5L/day Nutrition Intervention Nutrition Support: Resume Glucerna 1.2 at 65 ml/ hr. Water flush of 100 mls q 4 hrs . Kcal 1,872 Protein (gm) 94 Carbohydrates (gm) 179 Fat (gm) 94 Fluid (mL) 1,256 Fiber (gm) 25 Goal #1 Meet at least 75% of calorie and protein needs via TF Anticipated Discharge Needs: TF Follow-Up By: 01/16/19 Additional Comments Follow for TF tolerance
[2019-01-12] MEDS: PERCOCET 5/325 PO PRN (12:29)
[2019-01-12] MEDS: PROCRIT IV PRN (14:51)
[2019-01-12] MEDS ORDERED: ZEMURON IV ONE ×2 (15:45→18:34)
[2019-01-12] MEDS ORDERED: XYLOCAINE MPF 2% ONE (15:45)
[2019-01-12] MEDS ORDERED: SUBLIMAZE ONE (15:46)
[2019-01-12] MEDS ORDERED: DIPRIVAN 10 MG/ML IV ONE (15:46)
[2019-01-12] MEDS ORDERED: KETALAR ONE (15:48)
[2019-01-12] MEDS ORDERED: MARCAINE 0.5% INFILTRATI ONE ×2 (17:13→17:15)
[2019-01-12] MEDS ORDERED: XYLOCAINE 1% 20 mL ONE (17:13)
[2019-01-12] MEDS ORDERED: ANCEF ONE (17:15)
[2019-01-12] MEDS ORDERED: XYLOCAINE 1% 20 mL INFILTRATI ONE (17:16)
[2019-01-12] MEDS ORDERED: BLOXIVERZ ONE (18:34)
[2019-01-12] MEDS ORDERED: ROBINUL ONE (18:34)
[2019-01-12] MEDS ORDERED: NEO SYNEPHRINE/NS Syringe(OR USE) IV ONE (18:34)
--- NOTE | 2019-01-12 18:40 | Post Operative Note ---
Date of procedure: 01/12/19 (dictation:[id number]) Pre-op diagnosis: Stage IV Decubitus Sacral Ulcer Post-op diagnosis: same Findings: normal intra-abdominal anatomy. Stomach was were adhered to anterior abdominal wall at site of PEG tube Procedure: Lap Diverting Colostomy Anesthesia: MIGUEL Surgeon: DELILAH TEIXEIRA Director Of Admissions: ZENY HINES Pathology: none Condition: stable Disposition: PACU
--- NOTE | 2019-01-12 19:28 | Progress Note ---
Assessment and Plan - Patient Problems (1) CHF (congestive heart failure) Current Visit: Yes Status: Acute Qualifiers: Heart failure type: unspecified Heart failure chronicity: acute on chronic Qualified Code(s): I50.9 - Heart failure, unspecified Plan to address problem: Chronic Congestive heart failure: continue current medications. (2) ESRD (end stage renal disease) Current Visit: Yes Status: Acute Plan to address problem: END-STAGE RENAL DISEASE. DIALYSIS ACCESS rIGHT tunnel dialysis catheter Dialysis today for hyperkalemia prior to surgery continue hemodialysis Saturday, , Saturday (3) Anemia in ESRD (end-stage renal disease) Current Visit: Yes Status: Chronic Plan to address problem: moderate Anemia due to chronic kidney disease monitor cbc (4) Hypotension Current Visit: No Status: Acute Qualifiers: Hypotension type: unspecified hypotension type Qualified Code(s): I95.9 - Hypotension, unspecified Plan to address problem: Hypotension: ultrafiltration as tolerated with HD . Midodrine if able to take PO. Subjective Principal diagnosis: AMS; AFib Interval history: 63 year old with medical history significant for HTN, ESRD on hemodialysis TTS via a Right IJ Perm cath . with infected decubitus ulcers . Patient seen today hemodialysis later today. Denies any orthopnea or PND. Objective - Vital Signs Vital signs: Vital Signs - 12hr 01/12/19 01/12/19 01/12/19 10:34 11:30 11:45 Temperature 97.0 F L Pulse Rate 92 H 92 H 101 H Respiratory 16 Rate Blood Pressure 137/81 128/81 Blood Pressure [Right] O2 Sat by Pulse Oximetry 01/12/19 01/12/19 01/12/19 12:00 12:15 12:30 Temperature Pulse Rate 75 92 H 88 Respiratory Rate Blood Pressure 123/68 126/77 125/72 Blood Pressure [Right] O2 Sat by Pulse Oximetry 01/12/19 01/12/19 01/12/19 12:45 13:00 13:15 Temperature 98.4 F Pulse Rate 91 H 96 H 87 Respiratory 16 Rate Blood Pressure 129/75 132/70 127/71 Blood Pressure [Right] O2 Sat by Pulse Oximetry 01/12/19 01/12/19 01/12/19 13:30 13:45 14:00 Temperature Pulse Rate 76 102 H 102 H Respiratory Rate Blood Pressure 119/67 129/79 128/76 Blood Pressure [Right] O2 Sat by Pulse Oximetry 01/12/19 01/12/19 01/12/19 14:15 14:30 14:45 Temperature Pulse Rate 102 H 90 102 H Respiratory Rate Blood Pressure 121/72 127/75 126/78 Blood Pressure [Right] O2 Sat by Pulse Oximetry 01/12/19 15:00 Temperature 98.4 F Pulse Rate 94 H Respiratory 16 Rate Blood Pressure 132/70 Blood Pressure 134/70 [Right] O2 Sat by Pulse 100 Oximetry - General Appearance General appearance: well-developed, well-nourished EENT: ATNC, PERRL, mucous membranes moist Neck: no JVD Respiratory: Present: Clear to Ascultation Cardiology: regular, S1S2 Gastrointestinal: normal, normoactive bowel sounds Integumentary: no rash Neurologic: alert and oriented x3, CN 3-12 intact Psychiatric: mood/affect appropriate - Lab 01/12/19 07:46 01/12/19 15:00 Most recent lab results Calcium 9.1 mg/dL (8.4-10.2) 01/12/19 07:46 Phosphorus 2.90 mg/dL (2.5-4.5) D 01/05/19 04:56 Magnesium 2.00 mg/dL (1.7-2.3) 01/05/19 04:56 - Imaging Chest x-ray: image reviewed (i reviewed CXR with hazy opacities. ) Medications & Allergies - Medications Allergies/Adverse Reactions: Allergies haloperidol [From Haldol] Adverse Reaction (Verified 03/13/18 12:10) Unknown haloperidol lactate [From Haldol] Adverse Reaction (Verified 03/13/18 12:10) Unknown Home Medications: Home Medications Medication Instructions Recorded Confirmed Last Taken Type risperiDONE [RisperDAL] 1 mg PO QAM 03/13/18 12/27/18 Unknown History Sertraline [Zoloft] 100 mg PO QDAY 08/26/18 12/27/18 Unknown History risperiDONE [RisperDAL] 0.5 mg PO HS 08/26/18 12/27/18 Unknown History Polyethylene Glycol 3350 [Miralax 17 gm PO QDAY #30 packet 11/05/18 12/27/18 Unknown Rx 3350] Aspirin EC 81 mg PO DAILY #30 11/19/18 12/27/18 Unknown Rx Docusate Sodium [Colace CAP] 100 mg PO BID #60 11/19/18 12/27/18 Unknown Rx Folic Acid [Folvite] 1 mg PO DAILY #30 tab 11/19/18 12/27/18 Unknown Rx Famotidine [Pepcid] 20 mg PO DAILY tablet 12/08/18 12/27/18 Unknown Rx Gabapentin [Neurontin] 100 mg PO QHS capsule 12/08/18 12/27/18 Unknown Rx Metoprolol [Lopressor TAB] 50 mg PO BID 30 Days tablet 12/08/18 12/27/18 Unkno wn Rx Sevelamer Carbonate [Renvela] 800 mg PO TIDWM tablet 12/08/18 12/27/18 Unknown Rx hydrALAZINE [Apresoline TAB] 100 mg PO Q8HR #120 tablet 12/08/18 12/27/18 Unknown Rx Acetaminophen [Acetaminophen TAB] 650 mg PO Q12H PRN 12/15/18 12/27/18 Unknown History Amino Acids/Protein Hydrolys 30 ml PO BID 12/15/18 12/27/18 Unknown History [Pro-Stat Sugar Free Liquid] Glucagon,Human Recombinant 1 mg IJ Q15MIN PRN 12/15/18 12/27/18 Unknown History [Glucagon Emergency Kit] Insulin Aspart [NovoLOG 100 See Protocol SQ QWEEK 12/15/18 12/27/18 Unknown History UNITS/ML VIAL] Epoetin Solitario 10,000 Unit [Procrit] 10,000 unit IV UMA PRN vial 12/18/18 12/27/18 Unknown Rx Lispro Insulin [HumaLOG] 0 unit SUB-Q ACHS units 12/18/18 12/27/18 Unknown Rx risperiDONE [RisperDAL] 0.5 mg PO QHS tablet 12/18/18 12/27/18 Unknown Rx Active Medications: Generic Name Dose Route Start Last Admin Trade Name Freq PRN Reason Stop Dose Admin Acetaminophen 650 mg 12/26/18 21:40 01/10/19 18:33 Tylenol PO 650 mg Q4H PRN Administration Pain MILD(1-3)/Fever >100.5/HILL Lipase/Protease/Amylase 1 each 01/03/19 13:07 Mc Barrientos 10,500 Unit FEEDTUBE PRN PRN For Clogged Feeding Tube Aspirin 81 mg 12/27/18 10:00 01/12/19 10:39 Halfprin Ec PO Not Given DAILY SANCHEZ Epoetin Solitario 20,000 unit 01/05/19 11:03 01/12/19 14:51 Procrit IV 20,000 unit UMA PRN Administration hemodialysis Famotidine 20 mg 12/27/18 10:00 01/12/19 10:33 Pepcid PO 20 mg DAILY SANCHEZ Administration Folic Acid 1 mg 12/27/18 10:00 01/12/19 10:34 Folvite PO 1 mg DAILY SANCHEZ Administration Gabapentin 100 mg 12/26/18 22:00 01/11/19 22:42 Neurontin PO 100 mg QHS SANCHZE Administration Hydralazine HCl 100 mg 12/26/18 22:00 01/12/19 14:30 Apresoline PO Not Given Q8HR SANCHEZ Meropenem 1,000 mg/ Sodium 100 mls @ 100 mls/hr 01/05/19 11:00 01/12/19 10:39 Chloride IV 02/16/19 10:59 100 mls/hr Q24HR SANCHEZ Administration Vancomycin HCl 1 gm in 250 mls @ 167.007 mls/hr 01/06/19 20:00 01/10/19 23:03 Vancomycin/Ns 1 Gm/250 Ml IV 02/17/19 21:30 167.007 mls/hr TuThSa SANCHEZ Administration Sodium Chloride 100 mls @ 999 mls/hr 01/08/19 08:31 Nacl 0.9% IV UMA PRN Hypotension Metoprolol Tartrate 5 mg 12/27/18 18:55 12/29/18 05:41 Lopressor IV 5 mg Q5MIN PRN Administration increased heart rate Metoprolol Tartrate 100 mg 12/31/18 22:00 01/12/19 10:34 Lopressor PO 100 mg BID SANCHEZ Administration Ondansetron HCl 4 mg 12/26/18 21:40 01/10/19 12:23 Zofran IV 4 mg Q8H PRN Administration Nausea And Vomiting Oxycodone/Acetaminophen 1 tab 01/05/19 08:30 01/12/19 12:29 Percocet 5/325 PO 1 tab Q6H PRN Administration Pain, Moderate (4-6) Risperidone 0.5 mg 12/26/18 22:00 01/11/19 22:42 Risperdal PO 0.5 mg QHS SANCHEZ Administration Risperidone 1 mg 12/27/18 10:00 01/12/19 10:34 Risperdal PO 1 mg QAM SANCHEZ Administration Sertraline HCl 100 mg 12/27/18 10:00 01/12/19 10:39 Zoloft PO 100 mg QDAY SANCHEZ Administration Simple Syrup 15 ml 01/03/19 13:07 Simple Syrup FEEDTUBE PRN PRN Hypoglycemia Simple Syrup 30 ml 01/03/19 13:07 Simple Syrup FEEDTUBE PRN PRN Hypoglycemia Sodium Bicarbonate 325 mg 01/03/19 13:07 Sodium Bicarbonate FEEDTUBE PRN PRN For Clogged Feeding Tube Sodium Chloride 10 ml 12/26/18 22:00 01/12/19 10:34 Sodium Chloride Flush Syringe 10 Ml IV 10 ml BID SANCHEZ Administration Sodium Chloride 10 ml 12/26/18 21:40 01/03/19 22:02 Sodium Chloride Flush Syringe 10 Ml IV 10 ml PRN PRN Administration LINE FLUSH Sodium Hypochlorite 1 applic 01/01/19 15:31 01/10/19 12:23 Dakin's Half Strength TP 1 applicatio Q12H PRN Administration Wound Care
--- NOTE | 2019-01-12 22:57 | Operative Report ---
PREOPERATIVE DIAGNOSIS: Stage 4 decubitus sacral ulcer. POSTOPERATIVE DIAGNOSIS: Stage 4 decubitus sacral ulcer. PROCEDURE: Laparoscopic diverting colostomy. ATTENDING PHYSICIAN: Elke Briggs MD SEALANT MIXER: Dr. Isaacs. ANESTHESIA: General. ESTIMATED BLOOD LOSS: Minimal. FLUIDS: 800 mL. URINE OUTPUT: Minimal. FINDINGS: The stomach was well adhered to the anterior abdominal wall from the previous PEG procedure. There were no other significant abnormalities noted. The patient had some mild adhesions in the right lower quadrant. IMPLANTS: None. DRAINS: None. COMPLICATIONS: None. DISPOSITION: Stable, transferred to Recovery. INDICATIONS: This is a 63-year-old male who is quite debilitated and has a large sacral decubitus ulcer that extends all the way down to the bone. The patient is having frequent contamination from stool and felt to be in need for diverting colostomy in order to help heal his wound. Procedure, risks, and benefits were explained to family. Risks included but were not limited to infection, bleeding, pain, injury to surrounding structures, possible need for further procedures in the future. Family understood and power of insurance attorney consented. OPERATIVE NOTE: The patient was brought to the operating room and placed on the table in supine position. After adequate general anesthesia was established, the patient was prepped and draped in the usual sterile fashion. Antibiotics had been administered prior to start of the case. SCDs were in place. Time-out was called as the patient had a PEG tube on the left side and loosen up the collar, so that there would be mobility in the tube and stomach should it be needed when the abdomen was insufflated. We put 1010 drape around that area prior to prepping to keep it out of the field. As the PEG tube was in the epigastric to left upper quadrant where we normally would place a Veress needle, I ended up going on the patient's right side, 3 fingerbreadths below the costal margin in the midclavicular line. This area was anesthetized, a small incision was made. Veress needle was inserted on the first attempt. I was able to insufflate the abdomen. We then replaced this with a 5 mm port. Using the Optiview technique, I entered the peritoneal cavity safely. There was no injury to the underlying structures. We examined the abdomen and saw the findings as mentioned above. Under direct vision, I placed a 12 mm port in the right lower quadrant and another 5 mm port in the upper midline. We then examined the sigmoid colon. The patient had a good sized sigmoid colon such that we had no issues with short mesentery or minimal bowel to work with. We identified a portion near the rectosigmoid junction where we felt that this would be a good point for us to do a division and relatively easy to bring the loop up to the anterior abdominal wall where we decided to make the division using a Harmonic scalpel first with mobilized the sigmoid colon from the lateral wall, taken down the attachments. Then, I made an opening in the mesentery with the Harmonic scalpel and I was able to go all the way through. We had no significant bleeding. The laparoscopic JANAY stapler was passed with a blue load. With two firings I was able to get across the bowel. We had a nice clean staple line. We then took down a portion of the mesentery to allow more mobility in the bowel. We went in a stepwise fashion to minimize any risk that we would hit any large vessel, especially something that may be feeding the rectum. Once we had enough bowel, enough mesentery mobilized, we then proceeded to make the opening for the ostomy. The site of the ostomy had already been marked out by the ostomy nurse. Approximately, a half dollar sized area of skin was excised. Subcutaneous tissue was dissected, but not excised down to the anterior fascia. A cruciate incision was made. Rectus muscle was mobilized in the midline. In doing so, we did have a small injury to the epigastric vessel, which we isolated, ligated, and divided. We then continued on and we made an incision in the posterior rectus sheath and entered the peritoneal cavity safely. We had left laparoscopic clamp attached to the bowel, so it made it very easy for us to identify the end of the colon that we needed to bring up and once we were satisfied that we had enough bowel that was above the skin level and we had at least 2 cm above, we then reinsufflated the abdomen at this time at a lower pressure. As a precaution instead of 15 for our normal pressure, we went with 8 at this time for fear that if we maximally insufflated the abdomen, we may detach the stomach from the anterior abdominal wall, so we went with 8. When we reinsufflated, we went with 6. This was sufficient. We could see that there was minimal tension, which we took down with the Harmonic scalpel. We had excellent hemostasis. We cleaned up the area when we were done. There was no active bleeding. Once we had cleaned up everything, there was no bleeding. We then closed the 12 mm port site laparoscopically with Ethan-Princess fascial closure device using a 0 Vicryl stitch. We had an airtight closure. We then desufflated the abdomen, removed the other ports. We closed the skin incisions with 4-0 Monocryl and then placed Dermabond over the skin after the skin was cleaned and dried. We covered up at this area with a towel and we proceeded to mature the ostomy. We placed 2-0 Vicryl interrupted sutures around the periphery of the ostomy at the level of the fascia to secure it there. Then, we used 3-0 Vicryl with intermittent stitches to take a portion of the skin, the seromuscular layer, and then the end of the ostomy including the mucosa. We were able to create a fairly nice everted colostomy. I inserted a finger through there. The lumen was wide open. I was satisfied with this. We had no areas of stenosis or twists. We had made sure prior to completion of the laparoscopic portion that there was no twisting of the bowel. Everything looked good. Skin was cleaned and dried. Ostomy appliance was placed. The patient tolerated the procedure well. There were no complications. All counts were correct at the end of the case. JOB# [id number] RODRIGO/RENETTA ALICIA
[2019-01-13] MEDS ORDERED: NACL 0.9% 250ML 250 ML IV ONE ×2 (00:43→03:26)
[2019-01-13] MEDS: APRESOLINE PO SCH ×4 (00:44→23:55)
[2019-01-13] MEDS: LOPRESSOR PO SCH ×3 (00:46→23:54)
[2019-01-13] MEDS: RisperDAL PO SCH ×3 (00:47→23:54)
[2019-01-13] MEDS: NEURONTIN PO SCH ×2 (00:47→23:53)
[2019-01-13] MEDS: SODIUM CHLORIDE FLUSH SYRINGE 10 ML IV SCH ×3 (01:03→23:55)
[2019-01-13] MEDS: HALFPRIN EC PO SCH (11:00)
[2019-01-13] MEDS: FOLVITE PO SCH (11:00)
[2019-01-13] MEDS: ZOLOFT PO SCH (11:00)
[2019-01-13] MEDS: PEPCID PO SCH (11:01)
[2019-01-13] MEDS: MERREM 1,000 MG in NACL 0.9% 100 ML IV SCH (11:25)
--- NOTE | 2019-01-13 12:01 | Progress Note ---
Assessment and Plan - Patient Problems (1) ESRD (end stage renal disease) Current Visit: Yes Status: Acute Plan to address problem: END-STAGE RENAL DISEASE. DIALYSIS ACCESS RIGHT tunnel dialysis catheter Dialysis ON 01/12 for hyperkalemia prior to surgery continue hemodialysis Saturday, , Saturday Repeat hemodialysis today (2) CHF (congestive heart failure) Current Visit: Yes Status: Acute Qualifiers: Heart failure type: unspecified Heart failure chronicity: acute on chronic Qualified Code(s): I50.9 - Heart failure, unspecified Plan to address problem: Chronic Congestive heart failure: continue current medications. 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 Midodrine if able to take PO. Subjective Principal diagnosis: AMS; AFib Interval history: 63 year old with medical history significant for HTN, ESRD on hemodialysis TTS via a Right IJ Perm cath . with infected decubitus ulcers . Patient seen today Status post surgery yesterday He is more awake and alert today He is responding to questions Had dialysis yesterday Objective - Vital Signs Vital signs: Vital Signs - 12hr 01/13/19 01/13/19 01/13/19 00:00 00:15 05:57 Temperature 97.4 F L 97.5 F L Pulse Rate 103 H 106 H Respiratory 18 20 Rate Blood Pressure 88/66 107/66 O2 Sat by Pulse 99 98 100 Oximetry 01/13/19 11:00 Temperature Pulse Rate 106 H Respiratory Rate Blood Pressure O2 Sat by Pulse Oximetry - General Appearance General appearance: well-developed, well-nourished EENT: ATNC, PERRL, mucous membranes moist, hearing intact Neck: no JVD, no thyromegaly Respiratory: Present: Decreased Breath Sounds, Normal Exam Cardiology: regular, S1S2, faint heart tones Gastrointestinal: normal, normoactive bowel sounds Integumentary: no rash Neurologic: no focal deficit, CN 3-12 intact, other (awake) Psychiatric: mood/affect appropriate - Lab 01/12/19 07:46 01/12/19 15:00 Most recent lab results Calcium 9.1 mg/dL (8.4-10.2) 01/12/19 07:46 Phosphorus 2.90 mg/dL (2.5-4.5) D 01/05/19 04:56 Magnesium 2.00 mg/dL (1.7-2.3) 01/05/19 04:56 - Imaging Chest x-ray: image reviewed (I reviewed chest x-ray without overt pulmonary edema) Medications & Allergies - Medications Allergies/Adverse Reactions: Allergies haloperidol [From Haldol] Adverse Reaction (Verified 03/13/18 12:10) Unknown haloperidol lactate [From Haldol] Adverse Reaction (Verified 03/13/18 12:10) Unknown Home Medications: Home Medications Medication Instructions Recorded Confirmed Last Taken Type risperiDONE [RisperDAL] 1 mg PO QAM 03/13/18 12/27/18 Unknown History Sertraline [Zoloft] 100 mg PO QDAY 08/26/18 12/27/18 Unknown History risperiDONE [RisperDAL] 0.5 mg PO HS 08/26/18 12/27/18 Unknown History Polyethylene Glycol 3350 [Miralax 17 gm PO QDAY #30 packet 11/05/18 12/27/18 Unknown Rx 3350] Aspirin EC 81 mg PO DAILY #30 11/19/18 12/27/18 Unknown Rx Docusate Sodium [Colace CAP] 100 mg PO BID #60 11/19/18 12/27/18 Unknown Rx Folic Acid [Folvite] 1 mg PO DAILY #30 tab 11/19/18 12/27/18 Unknown Rx Famotidine [Pepcid] 20 mg PO DAILY tablet 12/08/18 12/27/18 Unknown Rx Gabapentin [Neurontin] 100 mg PO QHS capsule 12/08/18 12/27/18 Unknown Rx Metoprolol [Lopressor TAB] 50 mg PO BID 30 Days tablet 12/08/18 12/27/18 Unknown Rx Sevelamer Carbonate [Renvela] 800 mg PO TIDWM tablet 12/08/18 12/27/18 Unknown Rx hydrALAZINE [Apresoline TAB] 100 mg PO Q8HR #120 tablet 12/08/18 12/27/18 Unknown Rx Acetaminophen [Acetaminophen TAB] 650 mg PO Q12H PRN 12/15/18 12/27/18 Unknown History Amino Acids/Protein Hydrolys 30 ml PO BID 12/15/18 12/27/18 Unknown History [Pro-Stat Sugar Free Liquid] Glucagon,Human Recombinant 1 mg IJ Q15MIN PRN 12/15/18 12/27/18 Unknown History [Glucagon Emergency Kit] Insulin Aspart [NovoLOG 100 See Protocol SQ QWEEK 12/15/18 12/27/18 Unknown History UNITS/ML VIAL] Epoetin Solitario 10,000 Unit [Procrit] 10,000 unit IV UMA PRN vial 12/18/18 12/27/18 Unknown Rx Lispro Insulin [HumaLOG] 0 unit SUB-Q ACHS units 12/18/18 12/27/18 Unknown Rx risperiDONE [RisperDAL] 0.5 mg PO QHS tablet 12/18/18 12/27/18 Unknown Rx Active Medications: Generic Name Dose Route Start Last Admin Trade Name Freq PRN Reason Stop Dose Admin Acetaminophen 650 mg 12/26/18 21:40 01/10/19 18:33 Tylenol PO 650 mg Q4H PRN Administration Pain MILD(1-3)/Fever >100.5/HILL Lipase/Protease/Amylase 1 each 01/03/19 13:[address] 10,500 Unit FEEDTUBE PRN PRN For Clogged Feeding Tube Aspirin 81 mg 12/27/18 10:00 01/13/19 11:00 Halfprin Ec PO 81 mg DAILY SANCHEZ Administration Epoetin Solitario 20,000 unit 01/05/19 11:03 01/12/19 14:51 Procrit IV 20,000 unit UMA PRN Administration hemodialysis Famotidine 20 mg 12/27/18 10:00 01/13/19 11:01 Pepcid PO 20 mg DAILY SANCHEZ Administration Folic Acid 1 mg 12/27/18 10:00 01/13/19 11:00 Folvite PO 1 mg DAILY SANCHEZ Administration Gabapentin 100 mg 12/26/18 22:00 01/13/19 00:47 Neurontin PO Not Given QHS SANCHEZ Hydralazine HCl 100 mg 12/26/18 22:00 01/13/19 00:44 Apresoline PO Not Given Q8HR SANCHEZ Meropenem 1,000 mg/ Sodium 100 mls @ 100 mls/hr 01/05/19 11:00 01/13/19 11:25 Chloride IV 02/16/19 10:59 100 mls/hr Q24HR SANCHEZ Administration Vancomycin HCl 1 gm in 250 mls @ 167.007 mls/hr 01/06/19 20:00 01/10/19 23:03 Vancomycin/Ns 1 Gm/250 Ml IV 02/17/19 21:30 167.007 mls/hr TuThSa SANCHEZ Administration Sodium Chloride 100 mls @ 999 mls/hr 01/08/19 08:31 Nacl 0.9% IV UMA PRN Hypotension Metoprolol Tartrate 5 mg 12/27/18 18:55 12/29/18 05:41 Lopressor IV 5 mg Q5MIN PRN Administration increased heart rate Metoprolol Tartrate 100 mg 12/31/18 22:00 01/13/19 11:00 Lopressor PO 100 mg BID SANCHEZ Administration Ondansetron HCl 4 mg 12/26/18 21:40 01/10/19 12:23 Zofran IV 4 mg Q8H PRN Administration Nausea And Vomiting Oxycodone/Acetaminophen 1 tab 01/05/19 08:30 01/12/19 12:29 Percocet 5/325 PO 1 tab Q6H PRN Administration Pain, Moderate (4-6) Risperidone 0.5 mg 12/26/18 22:00 01/13/19 00:47 Risperdal PO Not Given QHS SANCHEZ Risperidone 1 mg 12/27/18 10:00 01/13/19 11:01 Risperdal PO 1 mg QAM SANCHEZ Administration Sertraline HCl 100 mg 12/27/18 10:00 01/13/19 11:00 Zoloft PO 100 mg QDAY SANCHEZ Administration Simple Syrup 15 ml 01/03/19 13:07 Simple Syrup FEEDTUBE PRN PRN Hypoglycemia Simple Syrup 30 ml 01/03/19 13:07 Simple Syrup FEEDTUBE PRN PRN Hypoglycemia Sodium Bicarbonate 325 mg 01/03/19 13:07 Sodium Bicarbonate FEEDTUBE PRN PRN For Clogged Feeding Tube Sodium Chloride 10 ml 12/26/18 22:00 01/13/19 11:01 Sodium Chloride Flush Syringe 10 Ml IV 10 ml BID SANCHEZ Administration Sodium Chloride 10 ml 12/26/18 21:40 01/03/19 22:02 Sodium Chloride Flush Syringe 10 Ml IV 10 ml PRN PRN Administration LINE FLUSH Sodium Hypochlorite 1 applic 01/01/19 15:31 01/10/19 12:23 Dakin's Half Strength TP 1 applicatio Q12H PRN Administration Wound Care
[2019-01-13 12:49] LABS: Mean Corpuscular HGB Conc 31 % (32-34); Mean Corpuscular Volume 86 fl (84-94); Platelet Count 211 K/mm3 (140-440); Red Blood Count 2.21 M/mm3 (3.65-5.03)
[2019-01-13 13:14] LABS: Calcium 8.8 mg/dL (8.4-10.2)
--- NOTE | 2019-01-13 13:37 | Progress Note ---
Assessment and Plan 63 yo M s/p diverting end colostomy POD 1 1. infected stage 4 sacral wound s/p bedside debridement 2. malnutrition 3. failure to thrive s/p PEG tube 4. bedbound 5. AMS 6. ESRD on HD 7. hyponatremia Plan: 1. Sacral wound will require additional debridement - will contact family for consent and tentatively add patient to OR schedule for tomorrow 01/14 2. hold TF after MN 3. MRI pelvis could not be done due to loop recorder 4. c/w IV abx. Would treat as clinical osteomyelitis 5. continue offloading and frequent turning of patient 6. daily wound care 7. monitor nutrition labs weekly D/W Dr. Lopez Thank you, please call with questions. Subjective Date of service: 01/13/19 Narrative: Pt seen and examined. No overnight events. Tolerating TF. Objective Vital Signs - 12hr 01/13/19 01/13/19 01/13/19 05:57 11:00 12:07 Temperature 97.5 F L 97.3 F L Pulse Rate 106 H 106 H 90 Respiratory 20 20 Rate Blood Pressure 107/66 99/64 O2 Sat by Pulse 100 91 Oximetry 01/13/19 01/13/19 01/13/19 12:15 12:30 12:45 Temperature 97.3 F L Pulse Rate 86 86 81 Respiratory 16 Rate Blood Pressure 99/56 99/56 100/54 O2 Sat by Pulse Oximetry 01/13/19 01/13/19 13:00 13:15 Temperature Pulse Rate 75 88 Respiratory Rate Blood Pressure 99/53 91/58 O2 Sat by Pulse Oximetry - General physical appearance Narrative Exam: Gen: Awake and alert. NAD CV; S1, S2+ resp: even and unlabored Abd; soft, NT, ND. incisions c/d/i. ostomy pink without stool or air in bag. PEG in place Sacrum: necrotic stage 4 sacral wound with multiple open wounds near rectum and buttock draining pus. - Labs 01/13/19 12:11 01/13/19 12:11 Diabetes panel 01/12/19 01/13/19 Range/Units 15:00 12:11 Sodium 139 (137-145) mmol/L Potassium 3.3 L D 4.8 D (3.6-5.0) mmol/L Chloride 99.2 (98-107) mmol/L Carbon Dioxide 28 (22-30) mmol/L BUN 24 H (9-20) mg/dL Creatinine 2.2 H (0.8-1.5) mg/dL Glucose 133 H (75-100) mg/dL Calcium 8.8 (8.4-10.2) mg/dL Calcium panel 01/13/19 Range/Units 12:11 Calcium 8.8 (8.4-10.2) mg/dL Pituitary panel 01/12/19 01/13/19 Range/Units 15:00 12:11 Sodium 139 (137-145) mmol/L Potassium 3.3 L D 4.8 D (3.6-5.0) mmol/L Chloride 99.2 (98-107) mmol/L Carbon Dioxide 28 (22-30) mmol/L BUN 24 H (9-20) mg/dL Creatinine 2.2 H (0.8-1.5) mg/dL Glucose 133 H (75-100) mg/dL Calcium 8.8 (8.4-10.2) mg/dL Adrenal panel 01/12/19 01/13/19 Range/Units 15:00 12:11 Sodium 139 (137-145) mmol/L Potassium 3.3 L D 4.8 D (3.6-5.0) mmol/L Chloride 99.2 (98-107) mmol/L Carbon Dioxide 28 (22-30) mmol/L BUN 24 H (9-20) mg/dL Creatinine 2.2 H (0.8-1.5) mg/dL Glucose 133 H (75-100) mg/dL Calcium 8.8 (8.4-10.2) mg/dL
[2019-01-13 13:48] LABS: Hemoglobin 5.9 gm/dl (11.8-15.2)
--- NOTE | 2019-01-13 14:04 | Post Anesthesia Evaluation ---
- Post Anesthesia Evaluation Patient Participated: Yes Airway Patent: Yes Stable Respiratory Function: Yes Nausea/Vomiting: No Temp > 96.8F: Yes Pain Manageable: Yes Adequeate Hydration: Yes Anesthesia Complications: No Block Receding Appropriately: Not Applicable Patient on Ventilator: No
[2019-01-13] MEDS: PROCRIT IV PRN (14:54)
[2019-01-13] MEDS ORDERED: NACL 0.9% 500 ML 500 ML IV NR (15:00)
--- NOTE | 2019-01-13 16:28 | Event Note ---
Date: 01/13/19 Called patient's nephew Jennifer Mims on cell number listed and left VM informing him of tentative plan for sacral debridement tomorrow. I will try again tomorrow to obtain consent.
--- NOTE | 2019-01-13 17:35 | Progress Note ---
Assessment and Plan Assessment and plan: Patient is a 63-year-old -[place] man from [facility] with a plethora of co-morbidities including blindness, CVA, CHF, PPM/ICD, loop recorder since 2013 that is MRI compatible, IDDM type 2, sepsis left foot ulcer, afib, ESRD with complications on HD TTS, hypertension, AOCD and GERD who presented to [facility] with altered sensorium and decreased responsiveness. Decreased responsive and not eating at all for 2 days. Patient has failure to thrive, altered mentation and weight loss of 20 pounds since 12/08/2018. Severe Sepsis due to Necrotizing Unstagable sacral decubitus ulcer s/p OR on 01/01/2019 for open excisional debridement of necrotic and infected sacral wound noted a large amount of necrotic tissue debrided and two abscess cavities at the caudad portion of the wound with a copious amount of purulent drainage which was drained. Wound cultures 01/02/2019 ESBL Kleb, MDR Ecoli and E raffinosus resistant to penicillin: On meropenam and vanc per ID. Consult Vascular surgery for central line placement, planned for diverting colostomy, family has agreed, Cardiology re-evaluated for surgery, input noted, high CV risk. d/w Dr. Villela, Vascular surgery placed central line placement for Merem, 01/08/19 Acute metabolic encephalopathy due to the above Acute systolic exacerbation of CHF (congestive heart failure): treat via Ultrafiltration during HD Afib with RVR: rate control only and optimize meds per Cardiology ESRD needing dialysis: Nephology is managing, Continue hemo dialysis Insulin dependent diabetes mellitus, A1c is 4.2: insulin was dc Severe malnutrition with FTT: 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, cont oral diet, check processing clerk input appreciated, PEG tube placed on 01/02/19 Hypertension: Continue antihypertensives h/o Peripheral neuropathy: Continue gabapentin Acute on chronic Anemia of AOCD: Continue epoetin, Transfused 2 units for total of 4 units, follow cbc Elevated troponin, Secondary to end-stage renal disease, chf and afib, Cardiology input appreciated DVT prophylaxis On heparin and GI prophylaxis Surgery planning for placement to perform diverting colostomy, but on hold for stablizing patient due to acute blood loss The high probability of a clinically significant, sudden or life threatening deterioration of the [GI] system(s) required my full and direct attention, intervention and personal management. The aggregate critical care time was [35] minutes. This time is in addition to time spent performing reported procedures but includes the following: [X] Data Review and interpretation [X] Patient assessment and monitoring of vital signs [X] Documentation [X] Medication orders and management History Interval history: Patient was seen and examined. Follow-up on current diagnosis Sacral decubitus ulcer. Currently having dialysis. No overnight events reported to me. Imaging, nursing note, chart, labs and old chart reviewed. Hospitalist Physical - Physical exam Narrative exam: Gen: severely chronically ill appearing, semi-comatose, mouth open, head flexed, eyes closed, unresponsive, Moans at times HEENT: NCAT, >right eye matted shut, OP dried out with mouth open but good oral care done. Neck: supple, no adenopathy, no thyromegaly, no JVD CVS/Heart: irregular irregular, normal S1S2, pulses present bilaterally Chest/Lungs: poor air entry, Symmetrical chest expansion, good air entry bilate rally GI/Abdomen: soft, peg in place, NTND, good bowel sounds, no guarding or rebound /Bladder: no suprapubic tenderness, no CVA or paraspinal tenderness Extermity/Skin: atrophic contracted legs, excoriated perineal area==> kearns in place to present this MSK: doesn't follow commands Neuro: doesn't follow commands Psych: unresponsive - Constitutional Vitals: Temp Pulse Resp BP Pulse Ox 97.3 F L 97 H 16 107/69 91 01/13/19 15:47 01/13/19 15:47 01/13/19 15:47 01/13/19 15:47 01/13/19 12:07 General appearance: Present: no acute distress, cachectic, disheveled Results - Labs CBC & Chem 7: 01/13/19 12:11 01/13/19 12:11 Labs: Laboratory Last Values WBC 7.4 K/mm3 (4.5-11.0) 01/13/19 12:11 RBC 2.21 M/mm3 (3.65-5.03) L 01/13/19 12:11 Hgb 5.9 gm/dl (11.8-15.2) L* 01/13/19 12:11 Hct 19.0 % (35.5-45.6) L* D 01/13/19 12:11 MCV 86 fl (84-94) 01/13/19 12:11 MCH 27 pg (28-32) L 01/13/19 12:11 MCHC 31 % (32-34) L 01/13/19 12:11 RDW 20.0 % (13.2-15.2) H 01/13/19 12:11 Plt Count 211 K/mm3 (140-440) 01/13/19 12:11 Lymph % (Auto) 5.8 % (13.4-35.0) L 01/07/19 00:45 [place] % (Auto) 6.0 % (0.0-7.3) 01/07/19 00:45 Eos % (Auto) 3.8 % (0.0-4.3) 01/07/19 00:45 Baso % (Auto) 0.2 % (0.0-1.8) 01/07/19 00:45 Lymph # 0.5 K/mm3 (1.2-5.4) L 01/07/19 00:45 [place] # 0.5 K/mm3 (0.0-0.8) 01/07/19 00:45 Eos # 0.3 K/mm3 (0.0-0.4) 01/07/19 00:45 Baso # 0.0 K/mm3 (0.0-0.1) 01/07/19 00:45 Add Manual Diff Complete 01/03/19 17:16 Total Counted 100 01/03/19 17:16 Seg Neutrophils % 84.2 % (40.0-70.0) H 01/07/19 00:45 Seg Neuts % (Manual) 96.0 % (40.0-70.0) H 01/03/19 17:16 0 % 01/03/19 17:16 2.0 % (13.4-35.0) L 01/03/19 17:16 Reactive Lymphs % (Man) 0 % 01/03/19 17:16 2.0 % (0.0-7.3) 01/03/19 17:16 0 % (0.0-4.3) 01/03/19 17:16 0 % (0.0-1.8) 01/03/19 17:16 0 % 01/03/19 17:16 0 % 01/03/19 17:16 0 % 01/03/19 17:16 0 % 01/03/19 17:16 Nucleated RBC % Not Reportable 01/03/19 17:16 Seg Neutrophils # 6.9 K/mm3 (1.8-7.7) 01/07/19 00:45 Seg Neutrophils # Man 10.8 K/mm3 (1.8-7.7) H 01/03/19 17:16 Band Neutrophils # 0.0 K/mm3 01/03/19 17:16 0.2 K/mm3 (1.2-5.4) L 01/03/19 17:16 Abs React Lymphs (Man) 0.0 K/mm3 01/03/19 17:16 0.2 K/mm3 (0.0-0.8) 01/03/19 17:16 0.0 K/mm3 (0.0-0.4) 01/03/19 17:16 0.0 K/mm3 (0.0-0.1) 01/03/19 17:16 0.0 K/mm3 01/03/19 17:16 0.0 K/mm3 01/03/19 17:16 0.0 K/mm3 01/03/19 17:16 Blast Cells # 0.0 K/mm3 01/03/19 17:16 WBC Morphology Not Reportable 01/03/19 17:16 Hypersegmented Neuts Not Reportable 01/03/19 17:16 Hyposegmented Neuts Not Reportable 01/03/19 17:16 Hypogranular Neuts Not Reportable 01/03/19 17:16 Not Reportable 01/03/19 17:16 Not Reportable 01/03/19 17:16 Not Reportable 01/03/19 17:16 Not Reportable 01/03/19 17:16 Not Reportable 01/03/19 17:16 Not Reportable 01/03/19 17:16 Consistent w auto 01/03/19 17:16 Not Reportable 01/03/19 17:16 Plt Clumps, EDTA Not Reportable 01/03/19 17:16 Not Reportable 01/03/19 17:16 Not Reportable 01/03/19 17:16 Not Reportable 01/03/19 17:16 Plt Morphology Comment Not Reportable 01/03/19 17:16 RBC Morphology Not Reportable 01/03/19 17:16 Dimorphic RBCs Not Reportable 01/03/19 17:16 Not Reportable 01/03/19 17:16 1+ 01/03/19 17:16 Few 01/03/19 17:16 1+ 01/03/19 17:16 Not Reportable 01/03/19 17:16 Not Reportable 01/03/19 17:16 Not Reportable 01/03/19 17:16 Not Reportable 01/03/19 17:16 Not Reportable 01/03/19 17:16 Few 01/03/19 17:16 Not Reportable 01/03/19 17:16 Few 01/03/19 17:16 Not Reportable 01/03/19 17:16 Not Reportable 01/03/19 17:16 Not Reportable 01/03/19 17:16 Not Reportable 01/03/19 17:16 Not Reportable 01/03/19 17:16 Not Reportable 01/03/19 17:16 Not Reportable 01/03/19 17:16 Acanthocytes (Spur) Not Reportable 01/03/19 17:16 Rouleaux Not Reportable 01/03/19 17:16 Not Reportable 01/03/19 17:16 Not Reportable 01/03/19 17:16 Not Reportable 01/03/19 17:16 Not Reportable 01/03/19 17:16 Hem Pathologist Commnt No 01/03/19 17:16 PT 18.0 Sec. (12.2-14.9) H 01/02/19 05:39 INR 1.39 (0.87-1.13) H 01/02/19 05:39 Sodium 139 mmol/L (137-145) 01/13/19 12:11 Potassium 4.8 mmol/L (3.6-5.0) D 01/13/19 12:11 Chloride 99.2 mmol/L (98-107) 01/13/19 12:11 Carbon Dioxide 28 mmol/L (22-30) 01/13/19 12:11 17 mmol/L 01/13/19 12:11 BUN 24 mg/dL (9-20) H 01/13/19 12:11 2.2 mg/dL (0.8-1.5) H 01/13/19 12:11 Estimated GFR 37 ml/min 01/13/19 12:11 11 % 01/13/19 12:11 Glucose 133 mg/dL (75-100) H 01/13/19 12:11 POC Glucose 174 (70-105) H 01/13/19 17:08 < 4.2 % (4-6) 12/26/18 17:12 Lactic Acid 1.10 mmol/L (0.7-2.0) 12/27/18 07:04 Calcium 8.8 mg/dL (8.4-10.2) 01/13/19 12:11 Phosphorus 2.90 mg/dL (2.5-4.5) D 01/05/19 04:56 Magnesium 2.00 mg/dL (1.7-2.3) 01/05/19 04:56 0.20 mg/dL (0.1-1.2) 01/07/19 11:16 AST 12 units/L (5-40) 01/07/19 11:16 ALT < 5 units/L (7-56) L 01/07/19 11:16 92 units/L (35-129) 01/07/19 11:16 29 units/L (55-170) L 12/26/18 17:12 0.158 ng/mL (0.00-0.029) H* 12/26/18 17:12 5.7 g/dL (6.3-8.2) L 01/07/19 11:16 2.0 g/dL (3.9-5) L 01/07/19 11:16 0.5 % 01/07/19 11:16 Triglycerides 75 mg/dL (2-149) 12/26/18 17:12 Cholesterol 109 mg/dL (50-199) 12/26/18 17:12 43 mg/dL (50-130) L 12/26/18 17:12 41 mg/dL (40-59) 12/26/18 17:12 2.65 % 12/26/18 17:12 PTH Intact 178.6 pg/mL (15-65) H 01/01/19 17:32 Random Vancomycin 15.7 ug/mL (0-40.0) 01/10/19 18:49 Blood Type O POSITIVE 01/13/19 15:22 Antibody Screen Negative 01/13/19 15:22 Crossmatch See Detail 01/13/19 15:22 Active Medications - Current Medications Current Medications: Generic Name Dose Route Start Last Admin Trade Name Freq PRN Reason Stop Dose Admin Acetaminophen 650 mg 12/26/18 21:40 01/10/19 18:33 Tylenol PO 650 mg Q4H PRN Administration Pain MILD(1-3)/Fever >100.5/HILL Lipase/Protease/Amylase 1 each 01/03/19 13:07 Pancreaze 10,500 Unit FEEDTUBE PRN PRN For Clogged Feeding Tube Aspirin 81 mg 12/27/18 10:00 01/13/19 11:00 Halfprin Ec PO 81 mg DAILY SANCHEZ Administration Epoetin Solitario 20,000 unit 01/05/19 11:03 01/13/19 14:54 Procrit IV 20,000 unit UMA PRN Administration hemodialysis Famotidine 20 mg 12/27/18 10:00 01/13/19 11:01 Pepcid PO 20 mg DAILY SANCHEZ Administration Folic Acid 1 mg 12/27/18 10:00 01/13/19 11:00 Folvite PO 1 mg DAILY SANCHEZ Administration Gabapentin 100 mg 12/26/18 22:00 01/13/19 00:47 Neurontin PO Not Given QHS SANCHEZ Hydralazine HCl 100 mg 12/26/18 22:00 01/13/19 00:44 Apresoline PO Not Given Q8HR SANCHEZ Meropenem 1,000 mg/ Sodium 100 mls @ 100 mls/hr 01/05/19 11:00 01/13/19 11:25 Chloride IV 02/16/19 10:59 100 mls/hr Q24HR SANCHEZ Administration Vancomycin HCl 1 gm in 250 mls @ 167.007 mls/hr 01/06/19 20:00 01/10/19 23:03 Vancomycin/Ns 1 Gm/250 Ml IV 02/17/19 21:30 167.007 mls/hr TuThSa SANCHEZ Administration Sodium Chloride 100 mls @ 999 mls/hr 01/08/19 08:31 Nacl 0.9% IV UMA PRN Hypotension Sodium Chloride 500 mls @ 0 mls/hr 01/13/19 15:00 Nacl 0.9% 500 Ml IV 01/13/19 21:00 ONCE NR As Directed Metoprolol Tartrate 5 mg 12/27/18 18:55 12/29/18 05:41 Lopressor IV 5 mg Q5MIN PRN Administration increased heart rate Metoprolol Tartrate 100 mg 12/31/18 22:00 01/13/19 11:00 Lopressor PO 100 mg BID SANCHEZ Administration Ondansetron HCl 4 mg 12/26/18 21:40 01/10/19 12:23 Zofran IV 4 mg Q8H PRN Administration Nausea And Vomiting Oxycodone/Acetaminophen 1 tab 01/05/19 08:30 01/12/19 12:29 Percocet 5/325 PO 1 tab Q6H PRN Administration Pain, Moderate (4-6) Risperidone 0.5 mg 12/26/18 22:00 01/13/19 00:47 Risperdal PO Not Given QHS SANCHEZ Risperidone 1 mg 12/27/18 10:00 01/13/19 11:01 Risperdal PO 1 mg QAM SANCHEZ Administration Sertraline HCl 100 mg 12/27/18 10:00 01/13/19 11:00 Zoloft PO 100 mg QDAY SANCHEZ Administration Simple Syrup 15 ml 01/03/19 13:07 Simple Syrup FEEDTUBE PRN PRN Hypoglycemia Simple Syrup 30 ml 01/03/19 13:07 Simple Syrup FEEDTUBE PRN PRN Hypoglycemia Sodium Bicarbonate 325 mg 01/03/19 13:07 Sodium Bicarbonate FEEDTUBE PRN PRN For Clogged Feeding Tube Sodium Chloride 10 ml 12/26/18 22:00 01/13/19 11:01 Sodium Chloride Flush Syringe 10 Ml IV 10 ml BID SANCHEZ Administration Sodium Chloride 10 ml 12/26/18 21:40 01/03/19 22:02 Sodium Chloride Flush Syringe 10 Ml IV 10 ml PRN PRN Administration LINE FLUSH Sodium Hypochlorite 1 applic 01/01/19 15:31 01/10/19 12:23 Dakin's Half Strength TP 1 applicatio Q12H PRN Administration Wound Care Nutrition/Malnutrition Assess - Dietary Evaluation Nutrition/Malnutrition Findings: Nutrition Notes Start: 12/27/18 17:15 Freq: Status: Active Protocol: Document 01/09/19 17:07 RM (Rec: 01/09/19 17:17 [id number]) Nutrition Notes Initial or Follow up Reassessment Current Diagnosis CKD (stage V CKD),Diabetes, Sepsis,Hypertension Other Pertinent Diagnosis Hx CVA,S/P PEG, Sacral wound, FTT, acute encephalopathy Current Diet TF (blank) Labs/Tests Reviewed Pertinent Medications Reviewed Height 5 ft 7 in Weight 84 kg Noble Body Weight (kg) 67.27 BMI 29.0 Subjective/Other Information Consulted for TF recommendation. Renal diet D/C'd. Per nurse pt has Hx of refusing to eat at times. Burn Absent Trauma Absent #2 Nutrition Diagnosis Increased nutrient needs ( specify in comment below) Diagnosis Progress(for reassessment Continues documentation) #1 Nutrition Diagnosis Inadequate oral intake Diagnosis Progress(for reassessment Continues documentation) Is patient on ventilator? No Is Patient Ambulatory and/or Out of Bed No REE-([place]-St. Jeor-confined to bed) 1911.492 Kcal/Kg value to use for calculation 17 Approximate Energy Requirements Using 1428 kcal/Kg Calculation Used for Recommendations [place] Jeor Additional Notes Pro needs 1.2-1.4g/k- 118g/day Fluid needs 1-1.5L/day Nutrition Intervention Nutrition Support: Resume Glucerna 1.2 at 65 ml/ hr. Water flush of 100 mls q 4 hrs . Kcal 1,872 Protein (gm) 94 Carbohydrates (gm) 179 Fat (gm) 94 Fluid (mL) 1,256 Fiber (gm) 25 Goal #1 Meet at least 75% of calorie and protein needs via TF Anticipated Discharge Needs: TF Follow-Up By: 01/16/19 Additional Comments Follow for TF tolerance
[2019-01-14] MEDS: VANCOMYCIN/NS 1 GM/250 ML 1 GM/250 ML BAG IV SCH (00:03)
[2019-01-14] MEDS: HumuLIN R SUB-Q SCH ×4 (00:18→18:41)
[2019-01-14] MEDS: APRESOLINE PO SCH ×2 (06:56→14:00)
[2019-01-14 08:56] LABS: Hematocrit 27.7 % (35.5-45.6); Mean Corpuscular HGB Conc 32 % (32-34); Mean Corpuscular Volume 86 fl (84-94); Platelet Count 210 K/mm3 (140-440); Red Blood Count 3.22 M/mm3 (3.65-5.03); Red Cell Distribution Width 17.9 % (13.2-15.2)
[2019-01-14 09:04] LABS: Calcium 9.2 mg/dL (8.4-10.2)
[2019-01-14] MEDS: ZOLOFT PO SCH (10:17)
[2019-01-14] MEDS: SODIUM CHLORIDE FLUSH SYRINGE 10 ML IV SCH (10:44)
[2019-01-14] MEDS: RisperDAL PO SCH (10:45)
--- NOTE | 2019-01-14 11:16 | Progress Note ---
Assessment and Plan - Patient Problems (1) ESRD (end stage renal disease) Current Visit: Yes Status: Acute Plan to address problem: END-STAGE RENAL DISEASE. DIALYSIS ACCESS RIGHT tunnel dialysis catheter Dialysis ON 01/12 for hyperkalemia prior to surgery continue hemodialysis Saturday, , Saturday (2) CHF (congestive heart failure) Current Visit: Yes Status: Acute Qualifiers: Heart failure type: unspecified Heart failure chronicity: acute on chronic Qualified Code(s): I50.9 - Heart failure, unspecified Plan to address problem: Chronic Congestive heart failure: continue current medications. (3) Anemia in ESRD (end-stage renal disease) Current Visit: Yes Status: Chronic Plan to address problem: moderate Anemia due to chronic kidney disease ?recent bleed Hb: 9g/dl continue epogen [id number] q TTS monitor cbc (4) Hypotension Current Visit: No Status: Acute Qualifiers: Hypotension type: unspecified hypotension type Qualified Code(s): I95.9 - Hypotension, unspecified Plan to address problem: Hypotension: ultrafiltration as tolerated with HD . Midodrine if able to take PO. (5) Decubitus ulcer of sacral region, unstageable Current Visit: Yes Status: Acute Plan to address problem: Large decubitus ulcer wound cultures with polymicrobial growth s/p diverting colostomy continue antibiotics with meropenem. Subjective Principal diagnosis: AMS; AFib Interval history: 63 year old with medical history significant for HTN, dementia, ESRD on hemodialysis TTS via a Right IJ Perm cath . with infected decubitus ulcers . Patient seen today He appears lethargic again today Completed dialysis yesterday Review of systems unobtainable because mental status Objective - Vital Signs Vital signs: Vital Signs - 12hr 01/13/19 01/14/19 23:30 06:05 Temperature 98.0 F 97.9 F Pulse Rate 104 H 100 H Respiratory 19 19 Rate Blood Pressure 138/72 128/78 O2 Sat by Pulse 97 93 Oximetry - General Appearance General appearance: well-developed, well-nourished EENT: ATNC, PERRL, mucous membranes moist Neck: no JVD Respiratory: Present: Clear to Ascultation Cardiology: regular, S1S2, other (edema. ) Gastrointestinal: normal, normoactive bowel sounds Integumentary: no rash Neurologic: confused, other (right eye vision loss. ) Psychiatric: mood/affect appropriate - Lab 01/14/19 08:25 01/14/19 08:25 Most recent lab results Calcium 9.2 mg/dL (8.4-10.2) 01/14/19 08:25 Phosphorus 2.90 mg/dL (2.5-4.5) D 01/05/19 04:56 Magnesium 2.00 mg/dL (1.7-2.3) 01/05/19 04:56 - Imaging Chest x-ray: image reviewed (I reviewed previous CXR with pacthy opacities. ) Medications & Allergies - Medications Allergies/Adverse Reactions: Allergies haloperidol [From Haldol] Adverse Reaction (Verified 03/13/18 12:10) Unknown haloperidol lactate [From Haldol] Adverse Reaction (Verified 03/13/18 12:10) Unknown Home Medications: Home Medications Medication Instructions Recorded Confirmed Last Taken Type risperiDONE [RisperDAL] 1 mg PO QAM 03/13/18 12/27/18 Unknown History Sertraline [Zoloft] 100 mg PO QDAY 08/26/18 12/27/18 Unknown History risperiDONE [RisperDAL] 0.5 mg PO HS 08/26/18 12/27/18 Unknown History Polyethylene Glycol 3350 [Miralax 17 gm PO QDAY #30 packet 11/05/18 12/27/18 Unknown Rx 3350] Aspirin EC 81 mg PO DAILY #30 11/19/18 12/27/18 Unknown Rx Docusate Sodium [Colace CAP] 100 mg PO BID #60 11/19/18 12/27/18 Unknown Rx Folic Acid [Folvite] 1 mg PO DAILY #30 tab 11/19/18 12/27/18 Unknown Rx Famotidine [Pepcid] 20 mg PO DAILY tablet 12/08/18 12/27/18 Unknown Rx Gabapentin [Neurontin] 100 mg PO QHS capsule 12/08/18 12/27/18 Unknown Rx Metoprolol [Lopressor TAB] 50 mg PO BID 30 Days tablet 12/08/18 12/27/18 Unknown Rx Sevelamer Carbonate [Renvela] 800 mg PO TIDWM tablet 12/08/18 12/27/18 Unknown Rx hydrALAZINE [Apresoline TAB] 100 mg PO Q8HR #120 tablet 12/08/18 12/27/18 Unknown Rx Acetaminophen [Acetaminophen TAB] 650 mg PO Q12H PRN 12/15/18 12/27/18 Unknown History Amino Acids/Protein Hydrolys 30 ml PO BID 12/15/18 12/27/18 Unknown History [Pro-Stat Sugar Free Liquid] Glucagon,Human Recombinant 1 mg IJ Q15MIN PRN 12/15/18 12/27/18 Unknown History [Glucagon Emergency Kit] Insulin Aspart [NovoLOG 100 See Protocol SQ QWEEK 12/15/18 12/27/18 Unknown History UNITS/ML VIAL] Epoetin Solitario 10,000 Unit [Procrit] 10,000 unit IV UMA PRN vial 12/18/18 12/27/18 Unknown Rx Lispro Insulin [HumaLOG] 0 unit SUB-Q ACHS units 12/18/18 12/27/18 Unknown Rx risperiDONE [RisperDAL] 0.5 mg PO QHS tablet 12/18/18 12/27/18 Unknown Rx Active Medications: Generic Name Dose Route Start Last Admin Trade Name Freq PRN Reason Stop Dose Admin Acetaminophen 650 mg 12/26/18 21:40 01/10/19 18:33 Tylenol PO 650 mg Q4H PRN Administration Pain MILD(1-3)/Fever >100.5/HILL Lipase/Protease/Amylase 1 each 01/03/19 13:07 Pancrejewel Barrientos 10,500 Unit FEEDTUBE PRN PRN For Clogged Feeding Tube Aspirin 81 mg 12/27/18 10:00 01/13/19 11:00 Halfprin Ec PO 81 mg DAILY SANCHEZ Administration Epoetin Solitario 20,000 unit 01/05/19 11:03 01/13/19 14:54 Procrit IV 20,000 unit UMA PRN Administration hemodialysis Famotidine 20 mg 12/27/18 10:00 01/13/19 11:01 Pepcid PO 20 mg DAILY SANCHEZ Administration Folic Acid 1 mg 12/27/18 10:00 01/13/19 11:00 Folvite PO 1 mg DAILY SANCHEZ Administration Gabapentin 100 mg 12/26/18 22:00 01/13/19 23:53 Neurontin PO 100 mg QHS SANCHEZ Administration Hydralazine HCl 100 mg 12/26/18 22:00 01/14/19 06:56 Apresoline PO Not Given Q8HR SANCHEZ Meropenem 1,000 mg/ Sodium 100 mls @ 100 mls/hr 01/05/19 11:00 01/13/19 21:54 Chloride IV 02/16/19 10:59 Infused Q24HR SANCHEZ Infusion Vancomycin HCl 1 gm in 250 mls @ 167.007 mls/hr 01/06/19 20:00 01/14/19 07:25 Vancomycin/Ns 1 Gm/250 Ml IV 02/17/19 21:30 Infused TuThSa SANCHEZ Infusion Sodium Chloride 100 mls @ 999 mls/hr 01/08/19 08:31 Nacl 0.9% IV UMA PRN Hypotension Insulin Human Regular 0 units 01/14/19 00:00 01/14/19 07:24 Humulin R SUB-Q Not Given Q6HR [facility] Protocol Metoprolol Tartrate 5 mg 12/27/18 18:55 12/29/18 05:41 Lopressor IV 5 mg Q5MIN PRN Administration increased heart rate Metoprolol Tartrate 100 mg 12/31/18 22:00 01/13/19 23:54 Lopressor PO 100 mg BID SANCHEZ Administration Ondansetron HCl 4 mg 12/26/18 21:40 01/10/19 12:23 Zofran IV 4 mg Q8H PRN Administration Nausea And Vomiting Oxycodone/Acetaminophen 1 tab 01/05/19 08:30 01/12/19 12:29 Percocet 5/325 PO 1 tab Q6H PRN Administration Pain, Moderate (4-6) Risperidone 0.5 mg 12/26/18 22:00 01/13/19 23:54 Risperdal PO 0.5 mg QHS SANCHEZ Administration Risperidone 1 mg 12/27/18 10:00 01/13/19 11:01 Risperdal PO 1 mg QAM SANCHEZ Administration Sertraline HCl 100 mg 12/27/18 10:00 01/13/19 11:00 Zoloft PO 100 mg QDAY SANCHEZ Administration Simple Syrup 15 ml 01/03/19 13:07 Simple Syrup FEEDTUBE PRN PRN Hypoglycemia Simple Syrup 30 ml 01/03/19 13:07 Simple Syrup FEEDTUBE PRN PRN Hypoglycemia Sodium Bicarbonate 325 mg 01/03/19 13:07 Sodium Bicarbonate FEEDTUBE PRN PRN For Clogged Feeding Tube Sodium Chloride 10 ml 12/26/18 22:00 01/13/19 23:55 Sodium Chloride Flush Syringe 10 Ml IV 10 ml BID SANCHEZ Administration Sodium Chloride 10 ml 12/26/18 21:40 01/03/19 22:02 Sodium Chloride Flush Syringe 10 Ml IV 10 ml PRN PRN Administration LINE FLUSH Sodium Hypochlorite 1 applic 01/01/19 15:31 01/10/19 12:23 Dakin's Half Strength TP 1 applicatio Q12H PRN Administration Wound Care
--- NOTE | 2019-01-14 12:41 | Gastroenterology Progress Note ---
Assessment and Plan 1.GI bleed? 2.acute on chronic anemia 3.severe sepsis due to necrotizing sacral decubitus- s/p diverting colostomy 01/12- additional debridement pending for today 4.acute metabolic encephalopathy 5.CHF 6.Afib 7.ESRD on HD 8.malnutrition/failure to trive- s/p PEG -H/H 9.0/27.7-s/p blood transfusion -continue to monitor H/H and transfuse as needed -upon exam, PEG w/o s/s of bleeding with non-bloody residual and colostomy with brown stool. No melena or hematochezia. -last EGD 01/02/19 with successful G-tube placed, otherwise normal -etiology- Oozing from sacral ulcer likely contributing. No clinical evidence of GI bleeding noted. -no plan for scope at this time unless overt bleeding develops -consider abd CT to r/o retroperitoneal bleed -continue supportive care Subjective Date of service: 01/14/19 Principal diagnosis: drop in H/H Interval history: GI has been re-consulted on this patient for evaluation of GI bleeding 2/2 recent drop in H/H. Previously known to our group this admission with PEG placed on 01/02/19. No acute distress. Upon exam, PEG residual with non-bloody and brown stool noted in colostomy bag (s/p diverting colostomy 01/12 due to infected stage 4 sacral wound- requiring debridement). Objective - Constitutional Vitals: Temp Pulse Resp BP Pulse Ox 97.5 F L 76 22 125/72 100 01/14/19 11:46 01/14/19 11:46 01/14/19 11:46 01/14/19 11:46 01/14/19 11:46 General appearance: no acute distress, other (lethargic) - Respiratory Respiratory effort: normal - Cardiovascular Rhythm: regular - Gastrointestinal General gastrointestinal: Present: soft, non-distended, normal bowel sounds, other (+colostomy, +PEG) - Labs CBC & Chem 7: 01/14/19 08:25 01/14/19 08:25 Labs: Laboratory Results - last 24 hr 01/09/19 01/13/19 01/13/19 10:50 12:11 12:11 WBC 7.4 RBC 2.21 L Hgb 5.9 L* Hct 19.0 L* D MCV 86 MCH 27 L MCHC 31 L RDW 20.0 H Plt Count 211 Sodium 139 Potassium 4.8 D Chloride 99.2 Carbon Dioxide 28 Anion Gap 17 BUN 24 H Creatinine 2.2 H Estimated GFR 37 BUN/Creatinine Ratio 11 Glucose 133 H POC Glucose Calcium 8.8 Blood Type Antibody Screen Crossmatch See Detail 01/13/19 01/13/19 01/14/19 15:22 17:08 00:05 WBC RBC Hgb Hct MCV MCH MCHC RDW Plt Count Sodium Potassium Chloride Carbon Dioxide Anion Gap BUN Creatinine Estimated GFR BUN/Creatinine Ratio Glucose POC Glucose 174 H 131 H Calcium Blood Type O POSITIVE Antibody Screen Negative Crossmatch See Detail 01/14/19 01/14/19 01/14/19 07:46 08:25 08:25 WBC 7.1 RBC 3.22 L Hgb 9.0 L D Hct 27.7 L D MCV 86 MCH 28 MCHC 32 RDW 17.9 H Plt Count 210 Sodium 141 Potassium 5.0 Chloride 101.4 Carbon Dioxide 32 H Anion Gap 13 BUN 18 Creatinine 1.8 H Estimated GFR 46 BUN/Creatinine Ratio 10 Glucose 98 POC Glucose 121 H Calcium 9.2 Blood Type Antibody Screen Crossmatch 01/14/19 11:53 WBC RBC Hgb Hct MCV MCH MCHC RDW Plt Count Sodium Potassium Chloride Carbon Dioxide Anion Gap BUN Creatinine Estimated GFR BUN/Creatinine Ratio Glucose POC Glucose 88 Calcium Blood Type Antibody Screen Crossmatch
[2019-01-14] MEDS: MERREM 1,000 MG in NACL 0.9% 100 ML IV SCH (12:45)
[2019-01-14] MEDS ORDERED: D5W 1,000 ML IV SCH (13:00)
[2019-01-14] MEDS ORDERED: MARCAINE 0.5% INFILTRATI ONE ×4 (14:09→16:04)
[2019-01-14] MEDS ORDERED: HYDROGEN PEROXIDE ONE (14:09)
--- NOTE | 2019-01-14 14:25 | Progress Note ---
Assessment and Plan Assessment and plan: Patient is a 63-year-old -[place] man from [facility] with a plethora of co-morbidities including blindness, CVA, CHF, PPM/ICD, loop recorder since 2013 that is MRI compatible, IDDM type 2, sepsis left foot ulcer, afib, ESRD with complications on HD TTS, hypertension, AOCD and GERD who presented to [facility] with altered sensorium and decreased responsiveness. Decreased responsive and not eating at all for 2 days. Patient has failure to thrive, altered mentation and weight loss of 20 pounds since 12/08/2018. Severe Sepsis due to Necrotizing Unstagable sacral decubitus ulcer s/p OR on 01/01/2019 for open excisional debridement of necrotic and infected sacral wound noted a large amount of necrotic tissue debrided and two abscess cavities at the caudad portion of the wound with a copious amount of purulent drainage which was drained. Wound cultures 01/02/2019 ESBL Kleb, MDR Ecoli and E raffinosus resistant to penicillin: On meropenam and vanc per ID. Consult Vascular surgery for central line placement, planned for diverting colostomy, family has agreed, Cardiology re-evaluated for surgery, input noted, high CV risk. d/w Dr. Villela, Vascular surgery placed central line placement for Merem, 01/08/19 Patient is for debdridement today. Awaiting surgery Acute metabolic encephalopathy due to the above Acute systolic exacerbation of CHF (congestive heart failure): treat via Ultrafiltration during HD Afib with RVR: rate control only and optimize meds per Cardiology ESRD needing dialysis: Nephology is managing, Continue hemo dialysis Insulin dependent diabetes mellitus, A1c is 4.2: insulin was dc Severe malnutrition with FTT: 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, cont oral diet, barn boss input appreciated, PEG tube placed on 01/02/19 Hypertension: Continue antihypertensives h/o Peripheral neuropathy: Continue gabapentin Acute on chronic Anemia of AOCD: Continue epoetin, Transfused total of 4 units, follow cbc- no occult GI bleed noted. Elevated troponin, Secondary to end-stage renal disease, chf and afib, Cardiology input appreciated DVT prophylaxis On heparin and GI prophylaxis Poor prognosis History Interval history: Patient was seen and examined. Follow-up on current diagnosis Sacral decubitus ulcer. clinically unchanged. No overnight events reported to me. Imaging, nursing note, chart, labs and old chart reviewed. Hospitalist Physical - Physical exam Narrative exam: Gen: severely chronically ill appearing, semi-comatose, mouth open, head flexed, eyes closed, unresponsive, Moans at times HEENT: NCAT, >right eye matted shut, OP dried out with mouth open but good oral care done. Neck: supple, no adenopathy, no thyromegaly, no JVD CVS/Heart: irregular irregular, normal S1S2, pulses present bilaterally Chest/Lungs: poor air entry, Symmetrical chest expansion, good air entry bilaterally GI/Abdomen: soft, peg in place, NTND, good bowel sounds, no guarding or rebound /Bladder: no suprapubic tenderness, no CVA or paraspinal tenderness Extermity/Skin: atrophic contracted legs, excoriated perineal area MSK: doesn't follow commands Neuro: doesn't follow commands Psych: unresponsive - Constitutional Vitals: Temp Pulse Resp BP Pulse Ox 97.5 F L 76 22 125/72 100 01/14/19 11:46 01/14/19 11:46 01/14/19 11:46 01/14/19 11:46 01/14/19 11:46 General appearance: Present: no acute distress, cachectic, disheveled Results - Labs CBC & Chem 7: 01/14/19 08:25 01/14/19 08:25 Labs: Laboratory Last Values WBC 7.1 K/mm3 (4.5-11.0) 01/14/19 08:25 RBC 3.22 M/mm3 (3.65-5.03) L 01/14/19 08:25 Hgb 9.0 gm/dl (11.8-15.2) L D 01/14/19 08:25 Hct 27.7 % (35.5-45.6) L D 01/14/19 08:25 MCV 86 fl (84-94) 01/14/19 08:25 MCH 28 pg (28-32) 01/14/19 08:25 MCHC 32 % (32-34) 01/14/19 08:25 RDW 17.9 % (13.2-15.2) H 01/14/19 08:25 Plt Count 210 K/mm3 (140-440) 01/14/19 08:25 Lymph % (Auto) 5.8 % (13.4-35.0) L 01/07/19 00:45 [place] % (Auto) 6.0 % (0.0-7.3) 01/07/19 00:45 Eos % (Auto) 3.8 % (0.0-4.3) 01/07/19 00:45 Baso % (Auto) 0.2 % (0.0-1.8) 01/07/19 00:45 Lymph # 0.5 K/mm3 (1.2-5.4) L 01/07/19 00:45 [place] # 0.5 K/mm3 (0.0-0.8) 01/07/19 00:45 Eos # 0.3 K/mm3 (0.0-0.4) 01/07/19 00:45 Baso # 0.0 K/mm3 (0.0-0.1) 01/07/19 00:45 Add Manual Diff Complete 01/03/19 17:16 Total Counted 100 01/03/19 17:16 Seg Neutrophils % 84.2 % (40.0-70.0) H 01/07/19 00:45 Seg Neuts % (Manual) 96.0 % (40.0-70.0) H 01/03/19 17:16 0 % 01/03/19 17:16 2.0 % (13.4-35.0) L 01/03/19 17:16 Reactive Lymphs % (Man) 0 % 01/03/19 17:16 2.0 % (0.0-7.3) 01/03/19 17:16 0 % (0.0-4.3) 01/03/19 17:16 0 % (0.0-1.8) 01/03/19 17:16 0 % 01/03/19 17:16 0 % 01/03/19 17:16 0 % 01/03/19 17:16 0 % 01/03/19 17:16 Nucleated RBC % Not Reportable 01/03/19 17:16 Seg Neutrophils # 6.9 K/mm3 (1.8-7.7) 01/07/19 00:45 Seg Neutrophils # Man 10.8 K/mm3 (1.8-7.7) H 01/03/19 17:16 Band Neutrophils # 0.0 K/mm3 01/03/19 17:16 0.2 K/mm3 (1.2-5.4) L 01/03/19 17:16 Abs React Lymphs (Man) 0.0 K/mm3 01/03/19 17:16 0.2 K/mm3 (0.0-0.8) 01/03/19 17:16 0.0 K/mm3 (0.0-0.4) 01/03/19 17:16 0.0 K/mm3 (0.0-0.1) 01/03/19 17:16 0.0 K/mm3 01/03/19 17:16 0.0 K/mm3 01/03/19 17:16 0.0 K/mm3 01/03/19 17:16 Blast Cells # 0.0 K/mm3 01/03/19 17:16 WBC Morphology Not Reportable 01/03/19 17:16 Hypersegmented Neuts Not Reportable 01/03/19 17:16 Hyposegmented Neuts Not Reportable 01/03/19 17:16 Hypogranular Neuts Not Reportable 01/03/19 17:16 Not Reportable 01/03/19 17:16 Not Reportable 01/03/19 17:16 Not Reportable 01/03/19 17:16 Not Reportable 01/03/19 17:16 Not Reportable 01/03/19 17:16 Not Reportable 01/03/19 17:16 Consistent w auto 01/03/19 17:16 Not Reportable 01/03/19 17:16 Plt Clumps, EDTA Not Reportable 01/03/19 17:16 Not Reportable 01/03/19 17:16 Not Reportable 01/03/19 17:16 Not Reportable 01/03/19 17:16 Plt Morphology Comment Not Reportable 01/03/19 17:16 RBC Morphology Not Reportable 01/03/19 17:16 Dimorphic RBCs Not Reportable 01/03/19 17:16 Not Reportable 01/03/19 17:16 1+ 01/03/19 17:16 Few 01/03/19 17:16 1+ 01/03/19 17:16 Not Reportable 01/03/19 17:16 Not Reportable 01/03/19 17:16 Not Reportable 01/03/19 17:16 Not Reportable 01/03/19 17:16 Not Reportable 01/03/19 17:16 Few 01/03/19 17:16 Not Reportable 01/03/19 17:16 Few 01/03/19 17:16 Not Reportable 01/03/19 17:16 Not Reportable 01/03/19 17:16 Not Reportable 01/03/19 17:16 Not Reportable 01/03/19 17:16 Not Reportable 01/03/19 17:16 Not Reportable 01/03/19 17:16 Not Reportable 01/03/19 17:16 Acanthocytes (Spur) Not Reportable 01/03/19 17:16 Rouleaux Not Reportable 01/03/19 17:16 Not Reportable 01/03/19 17:16 Not Reportable 01/03/19 17:16 Not Reportable 01/03/19 17:16 Not Reportable 01/03/19 17:16 Hem Pathologist Commnt No 01/03/19 17:16 PT 18.0 Sec. (12.2-14.9) H 01/02/19 05:39 INR 1.39 (0.87-1.13) H 01/02/19 05:39 Sodium 141 mmol/L (137-145) 01/14/19 08:25 Potassium 5.0 mmol/L (3.6-5.0) 01/14/19 08:25 Chloride 101.4 mmol/L (98-107) 01/14/19 08:25 Carbon Dioxide 32 mmol/L (22-30) H 01/14/19 08:25 13 mmol/L 01/14/19 08:25 BUN 18 mg/dL (9-20) 01/14/19 08:25 1.8 mg/dL (0.8-1.5) H 01/14/19 08:25 Estimated GFR 46 ml/min 01/14/19 08:25 10 % 01/14/19 08:25 Glucose 98 mg/dL (75-100) 01/14/19 08:25 POC Glucose 88 (70-105) 01/14/19 11:53 < 4.2 % (4-6) 12/26/18 17:12 Lactic Acid 1.10 mmol/L (0.7-2.0) 12/27/18 07:04 Calcium 9.2 mg/dL (8.4-10.2) 01/14/19 08:25 Phosphorus 2.90 mg/dL (2.5-4.5) D 01/05/19 04:56 Magnesium 2.00 mg/dL (1.7-2.3) 01/05/19 04:56 0.20 mg/dL (0.1-1.2) 01/07/19 11:16 AST 12 units/L (5-40) 01/07/19 11:16 ALT < 5 units/L (7-56) L 01/07/19 11:16 92 units/L (35-129) 01/07/19 11:16 29 units/L (55-170) L 12/26/18 17:12 0.158 ng/mL (0.00-0.029) H* 12/26/18 17:12 5.7 g/dL (6.3-8.2) L 01/07/19 11:16 2.0 g/dL (3.9-5) L 01/07/19 11:16 0.5 % 01/07/19 11:16 Triglycerides 75 mg/dL (2-149) 12/26/18 17:12 Cholesterol 109 mg/dL (50-199) 12/26/18 17:12 43 mg/dL (50-130) L 12/26/18 17:12 41 mg/dL (40-59) 12/26/18 17:12 2.65 % 12/26/18 17:12 PTH Intact 178.6 pg/mL (15-65) H 01/01/19 17:32 Random Vancomycin 15.7 ug/mL (0-40.0) 01/10/19 18:49 Blood Type O POSITIVE 01/13/19 15:22 Antibody Screen Negative 01/13/19 15:22 Crossmatch See Detail 01/13/19 15:22 Active Medications - Current Medications Current Medications: Generic Name Dose Route Start Last Admin Trade Name Freq PRN Reason Stop Dose Admin Acetaminophen 650 mg 12/26/18 21:40 01/10/19 18:33 Tylenol PO 650 mg Q4H PRN Administration Pain MILD(1-3)/Fever >100.5/HILL Lipase/Protease/Amylase 1 each 01/03/19 13:07 Pancreaze 10,500 Unit FEEDTUBE PRN PRN For Clogged Feeding Tube Aspirin 81 mg 12/27/18 10:00 01/13/19 11:00 Halfprin Ec PO 81 mg DAILY SANCHEZ Administration Epoetin Solitario 20,000 unit 01/05/19 11:03 01/13/19 14:54 Procrit IV 20,000 unit UMA PRN Administration hemodialysis Famotidine 20 mg 12/27/18 10:00 01/13/19 11:01 Pepcid PO 20 mg DAILY SANCHEZ Administration Folic Acid 1 mg 12/27/18 10:00 01/13/19 11:00 Folvite PO 1 mg DAILY SANCHEZ Administration Gabapentin 100 mg 12/26/18 22:00 01/13/19 23:53 Neurontin PO 100 mg QHS SANCHEZ Administration Hydralazine HCl 100 mg 12/26/18 22:00 01/14/19 06:56 Apresoline PO Not Given Q8HR SANCHEZ Meropenem 1,000 mg/ Sodium 100 mls @ 100 mls/hr 01/05/19 11:00 01/14/19 12:45 Chloride IV 02/16/19 10:59 100 mls/hr Q24HR SANCHEZ Administration Vancomycin HCl 1 gm in 250 mls @ 167.007 mls/hr 01/06/19 20:00 01/14/19 07:25 Vancomycin/Ns 1 Gm/250 Ml IV 02/17/19 21:30 Infused TuThSa SANCHEZ Infusion Sodium Chloride 100 mls @ 999 mls/hr 01/08/19 08:31 Nacl 0.9% IV UMA PRN Hypotension Dextrose 1,000 mls @ 45 mls/hr 01/14/19 13:00 01/14/19 12:45 D5w IV 45 mls/hr DIRECT SANCHEZ Administration Insulin Human Regular 0 units 01/14/19 00:00 01/14/19 07:24 Humulin R SUB-Q Not Given Q6HR [facility] Protocol Metoprolol Tartrate 5 mg 12/27/18 18:55 12/29/18 05:41 Lopressor IV 5 mg Q5MIN PRN Administration increased heart rate Metoprolol Tartrate 100 mg 12/31/18 22:00 01/13/19 23:54 Lopressor PO 100 mg BID SANCHEZ Administration Ondansetron HCl 4 mg 12/26/18 21:40 01/10/19 12:23 Zofran IV 4 mg Q8H PRN Administration Nausea And Vomiting Oxycodone/Acetaminophen 1 tab 01/05/19 08:30 01/12/19 12:29 Percocet 5/325 PO 1 tab Q6H PRN Administration Pain, Moderate (4-6) Risperidone 0.5 mg 12/26/18 22:00 01/13/19 23:54 Risperdal PO 0.5 mg QHS SANCHEZ Administration Risperidone 1 mg 12/27/18 10:00 01/13/19 11:01 Risperdal PO 1 mg QAM SANCHEZ Administration Sertraline HCl 100 mg 12/27/18 10:00 01/13/19 11:00 Zoloft PO 100 mg QDAY SANCHEZ Administration Simple Syrup 15 ml 01/03/19 13:07 Simple Syrup FEEDTUBE PRN PRN Hypoglycemia Simple Syrup 30 ml 01/03/19 13:07 Simple Syrup FEEDTUBE PRN PRN Hypoglycemia Sodium Bicarbonate 325 mg 01/03/19 13:07 Sodium Bicarbonate FEEDTUBE PRN PRN For Clogged Feeding Tube Sodium Chloride 10 ml 12/26/18 22:00 01/13/19 23:55 Sodium Chloride Flush Syringe 10 Ml IV 10 ml BID SANCHEZ Administration Sodium Chloride 10 ml 12/26/18 21:40 01/03/19 22:02 Sodium Chloride Flush Syringe 10 Ml IV 10 ml PRN PRN Administration LINE FLUSH Sodium Hypochlorite 1 applic 01/01/19 15:31 01/10/19 12:23 Dakin's Half Strength TP 1 applicatio Q12H PRN Administration Wound Care Nutrition/Malnutrition Assess - Dietary Evaluation Nutrition/Malnutrition Findings: Nutrition Notes Start: 12/27/18 17:1 5 Freq: Status: Active Protocol: Document 01/09/19 17:07 RM (Rec: 01/09/19 17:17 [id number]) Nutrition Notes Initial or Follow up Reassessment Current Diagnosis CKD (stage V CKD),Diabetes, Sepsis,Hypertension Other Pertinent Diagnosis Hx CVA,S/P PEG, Sacral wound, FTT, acute encephalopathy Current Diet TF (blank) Labs/Tests Reviewed Pertinent Medications Reviewed Height 5 ft 7 in Weight 84 kg [place] Body Weight (kg) 67.27 BMI 29.0 Subjective/Other Information Consulted for TF recommendation. Renal diet D/C'd. Per nurse pt has Hx of refusing to eat at times. Burn Absent Trauma Absent #2 Nutrition Diagnosis Increased nutrient needs ( specify in comment below) Diagnosis Progress(for reassessment Continues documentation) #1 Nutrition Diagnosis Inadequate oral intake Diagnosis Progress(for reassessment Continues documentation) Is patient on ventilator? No Is Patient Ambulatory and/or Out of Bed No REE-([facility]-confined to bed) 1911.492 Kcal/Kg value to use for calculation 17 Approximate Energy Requirements Using 1428 kcal/Kg Calculation Used for Recommendations [facility] Additional Notes Pro needs 1.2-1.4g/k- 118g/day Fluid needs 1-1.5L/day Nutrition Intervention Nutrition Support: Resume Glucerna 1.2 at 65 ml/ hr. Water flush of 100 mls q 4 hrs . Kcal 1,872 Protein (gm) 94 Carbohydrates (gm) 179 Fat (gm) 94 Fluid (mL) 1,256 Fiber (gm) 25 Goal #1 Meet at least 75% of calorie and protein needs via TF Anticipated Discharge Needs: TF Follow-Up By: 01/16/19 Additional Comments Follow for TF tolerance - Attestation Statement I have reviewed and agreed w/ Malnutrition eval & tx plan: Yes
[2019-01-14] MEDS: HALFPRIN EC PO SCH (14:36)
[2019-01-14] MEDS: PEPCID PO SCH (14:36)
[2019-01-14] MEDS: FOLVITE PO SCH (14:36)
[2019-01-14] MEDS: LOPRESSOR PO SCH (14:36)
[2019-01-14 15:02] LABS: Hematocrit 25.7 % (35.5-45.6); Hemoglobin 8.4 gm/dl (11.8-15.2)
--- NOTE | 2019-01-14 15:31 | Anesthesia Day of Surgery ---
Anesthesia Day of Surgery - Day of Surgery Patient Examined: Yes Patient H&P Reviewed: Yes Patient is NPO: Yes
--- NOTE | 2019-01-14 15:33 | Anesthesia Consultation ---
Anesthesia Consult and Med Hx Date of service: 01/14/19 - Pre-Operative Health Status ASA Pre-Surgery Classification: ASA4 Proposed Anesthetic Plan: MAC - Pulmonary Hx Smoking: No Hx Asthma: No COPD: Yes Hx Pneumonia: No Hx Sleep Apnea: No (QUIQUE PRE SCREEN HIGH RISK) - Cardiovascular System Hx Hypertension: Yes Hx Coronary Artery Disease: Yes Hx Heart Attack/AMI: No Hx Angina: Yes Hx Pacemaker: Yes (defibrillator) Hx Internal Defibrillator: Yes - Central Nervous System CVA: Yes Hx Psychiatric Problems: Yes (Insomnia) - Endocrine Hx Renal Disease: Yes (TTS dialysis (Dr. Layne)) Hx End Stage Renal Disease: Yes Hx Hypothyroidism: Yes - Hematic Hx Anemia: Yes - Other Systems Hx Cancer: No
[2019-01-14] MEDS ORDERED: KETALAR ONE (15:39)
[2019-01-14] MEDS ORDERED: VERSED ONE (15:43)
[2019-01-14] MEDS ORDERED: SUBLIMAZE ONE (15:54)
[2019-01-14] MEDS ORDERED: BREVIBLOC IV ONE (16:23)
--- NOTE | 2019-01-14 16:37 | Post Operative Note ---
Date of procedure: 01/14/19 Pre-op diagnosis: infected stage 4 sacral wound Post-op diagnosis: same Findings: 40cm x 20 cm x 5 cm stage 4 sacral wound with necrotic tissue and abscess cavities Procedure: excisional debridement of infected sacral wound to bone Anesthesia: MAC, local Surgeon: ZENY HINES Estimated blood loss: other (150cc) Pathology: none Specimen disposition: to lab Condition: stable Disposition: PACU
[2019-01-14 21:27] LABS: Hematocrit 24.9 % (35.5-45.6)
[2019-01-15] MEDS: NEURONTIN PO SCH ×2 (00:23→21:19)
[2019-01-15] MEDS: LOPRESSOR PO SCH ×3 (00:24→21:19)
[2019-01-15] MEDS: RisperDAL PO SCH ×3 (00:25→21:19)
[2019-01-15] MEDS: HumuLIN R SUB-Q SCH ×4 (04:24→18:10)
[2019-01-15] MEDS: APRESOLINE PO SCH ×4 (04:24→21:20)
[2019-01-15] MEDS: SODIUM CHLORIDE FLUSH SYRINGE 10 ML IV SCH ×3 (08:09→21:20)
[2019-01-15] MEDS: MERREM 1,000 MG in NACL 0.9% 100 ML IV SCH (10:48)
[2019-01-15] MEDS: PEPCID PO SCH (10:49)
[2019-01-15] MEDS: HALFPRIN EC PO SCH (10:49)
[2019-01-15] MEDS: ZOLOFT PO SCH (10:49)
[2019-01-15] MEDS: FOLVITE PO SCH (10:49)
[2019-01-15] MEDS: PERCOCET 5/325 PO PRN (11:17)
[2019-01-15 11:31] LABS: Hemoglobin 6.4 gm/dl (11.8-15.2); Mean Corpuscular HGB Conc 32 % (32-34); Mean Corpuscular Volume 87 fl (84-94); Platelet Count 192 K/mm3 (140-440); Red Blood Count 2.28 M/mm3 (3.65-5.03); Red Cell Distribution Width 18.6 % (13.2-15.2)
[2019-01-15 11:34] LABS: Hematocrit 19.9 % (35.5-45.6)
[2019-01-15] MEDS ORDERED: NACL 0.9% 500 ML 500 ML IV NR (11:53)
[2019-01-15 11:54] LABS: Calcium 9.2 mg/dL (8.4-10.2)
--- NOTE | 2019-01-15 12:47 | Progress Note ---
Assessment and Plan 63 yo M s/p debridement of sacral wound, POD 1 and diverting end colostomy on 01/12/19 1. infected stage 4 sacral wound 2. malnutrition 3. failure to thrive s/p PEG tube 4. bedbound 5. AMS 6. ESRD on HD 7. hyponatremia Plan: 1. Alginate packing to wound with pressure dressing. Will be a candidate for wound vac. Will apply if patient remains in hospital until next week. If being discharged in next 24-48 hrs, may be applied at [place] 2. c/w TF via PEG 3. MRI pelvis could not be done due to loop recorder 4. c/w IV abx. Would treat as clinical osteomyelitis 5. continue offloading and frequent turning of patient 6. monitor nutrition labs weekly D/W Dr. Lopez Subjective Date of service: 01/15/19 Narrative: Pt seen and examined. No overnight events. No f/c Objective Vital Signs - 12hr 01/15/19 01/15/19 05:56 11:39 Temperature 98.2 F 98.0 F Pulse Rate 75 97 H Respiratory 18 22 Rate Blood Pressure 111/68 122/71 O2 Sat by Pulse 100 100 Oximetry - General physical appearance Narrative Exam: Gen: Awake and alert. NAD CV: s1, S2+ Resp: even and unlabored Sacrum: sacrum dressing removed. Pinpoint areas of bleeding from wound bed controlled with pressure. Wound bed clean without necrotic tissue or slough. Surgical in place. - Labs 01/15/19 10:57 01/15/19 10:57 Diabetes panel 01/15/19 Range/Units 10:57 Sodium 139 (137-145) mmol/L Potassium 5.4 H (3.6-5.0) mmol/L Chloride 101.1 (98-107) mmol/L Carbon Dioxide 29 (22-30) mmol/L BUN 27 H (9-20) mg/dL Creatinine 2.4 H (0.8-1.5) mg/dL Glucose 104 H (75-100) mg/dL Calcium 9.2 (8.4-10.2) mg/dL Calcium panel 01/15/19 Range/Units 10:57 Calcium 9.2 (8.4-10.2) mg/dL Pituitary panel 01/15/19 Range/Units 10:57 Sodium 139 (137-145) mmol/L Potassium 5.4 H (3.6-5.0) mmol/L Chloride 101.1 (98-107) mmol/L Carbon Dioxide 29 (22-30) mmol/L BUN 27 H (9-20) mg/dL Creatinine 2.4 H (0.8-1.5) mg/dL Glucose 104 H (75-100) mg/dL Calcium 9.2 (8.4-10.2) mg/dL Adrenal panel 01/15/19 Range/Units 10:57 Sodium 139 (137-145) mmol/L Potassium 5.4 H (3.6-5.0) mmol/L Chloride 101.1 (98-107) mmol/L Carbon Dioxide 29 (22-30) mmol/L BUN 27 H (9-20) mg/dL Creatinine 2.4 H (0.8-1.5) mg/dL Glucose 104 H (75-100) mg/dL Calcium 9.2 (8.4-10.2) mg/dL
--- NOTE | 2019-01-15 13:31 | Gastroenterology Progress Note ---
Assessment and Plan 1.GI bleed? 2.acute on chronic anemia 3.severe sepsis due to necrotizing sacral decubitus- s/p diverting colostomy 01/12 and debridement yesterday 4.acute metabolic encephalopathy 5.CHF 6.Afib 7.ESRD on HD 8.malnutrition/failure to trive- s/p PEG -H/H 6.11/07.9-trended down- transfusion PRBCs pending -continue to monitor H/H and transfuse as needed -last EGD 01/02/19 with successful G-tube placed, otherwise normal -etiology- likely 2/2 to Oozing from sacral ulcer -no plan for scope at this time unless overt bleeding develops, given no clinical evidence of GI bleeding -consider abd CT to r/o retroperitoneal bleed -continue supportive care Subjective Date of service: 01/15/19 Principal diagnosis: drop in H/H Interval history: No active signs of GI bleeding overnight or this am. Objective - Constitutional Vitals: Temp Pulse Resp BP Pulse Ox 98.0 F 97 H 22 122/71 100 01/15/19 11:39 01/15/19 11:39 01/15/19 11:39 01/15/19 11:39 01/15/19 11:39 General appearance: no acute distress, other (lethargic) - Respiratory Respiratory effort: normal - Cardiovascular Rhythm: regular - Gastrointestinal General gastrointestinal: Present: soft, non-distended, normal bowel sounds, ot her (+colostomy with brown stool, +PEG) - Labs CBC & Chem 7: 01/15/19 10:57 01/15/19 10:57 Labs: Laboratory Results - last 24 hr 01/13/19 01/14/19 01/14/19 15:22 14:40 18:24 WBC RBC Hgb 8.4 L Hct 25.7 L MCV MCH MCHC RDW Plt Count Sodium Potassium Chloride Carbon Dioxide Anion Gap BUN Creatinine Estimated GFR BUN/Creatinine Ratio Glucose POC Glucose 107 H Calcium Random Vancomycin Blood Type O POSITIVE Antibody Screen Negative Crossmatch See Detail 01/14/19 01/15/19 01/15/19 20:54 03:30 06:43 WBC RBC Hgb 8.0 L Hct 24.9 L MCV MCH MCHC RDW Plt Count Sodium Potassium Chloride Carbon Dioxide Anion Gap BUN Creatinine Estimated GFR BUN/Creatinine Ratio Glucose POC Glucose 150 H 129 H Calcium Random Vancomycin Blood Type Antibody Screen Crossmatch 01/15/19 01/15/19 01/15/19 10:57 10:57 10:57 WBC 6.3 RBC 2.28 L Hgb 6.4 L Hct 19.9 L* MCV 87 MCH 28 MCHC 32 RDW 18.6 H Plt Count 192 Sodium 139 Potassium 5.4 H Chloride 101.1 Carbon Dioxide 29 Anion Gap 14 BUN 27 H Creatinine 2.4 H Estimated GFR 33 BUN/Creatinine Ratio 11 Glucose 104 H POC Glucose Calcium 9.2 Random Vancomycin 14.3 Blood Type Antibody Screen Crossmatch 01/15/19 11:48 WBC RBC Hgb Hct MCV MCH MCHC RDW Plt Count Sodium Potassium Chloride Carbon Dioxide Anion Gap BUN Creatinine Estimated GFR BUN/Creatinine Ratio Glucose POC Glucose 122 H Calcium Random Vancomycin Blood Type Antibody Screen Crossmatch
--- NOTE | 2019-01-15 15:32 | Progress Note ---
Assessment and Plan - Patient Problems (1) ESRD (end stage renal disease) Current Visit: Yes Status: Acute Plan to address problem: END-STAGE RENAL DISEASE. DIALYSIS ACCESS RIGHT tunnel dialysis catheter Dialysis ON 01/12 for hyperkalemia prior to surgery continue hemodialysis Saturday, , Saturday (2) CHF (congestive heart failure) Current Visit: Yes Status: Acute Qualifiers: Heart failure type: unspecified Heart failure chronicity: acute on chronic Qualified Code(s): I50.9 - Heart failure, unspecified Plan to address problem: Chronic Congestive heart failure: continue current medications. (3) Anemia in ESRD (end-stage renal disease) Current Visit: Yes Status: Chronic Plan to address problem: moderate Anemia due to chronic kidney disease ?recent bleed Hb: 6.9g/dl continue epogen [id number] q TTS monitor cbc (4) Hypotension Current Visit: No Status: Acute Qualifiers: Hypotension type: unspecified hypotension type Qualified Code(s): I95.9 - Hypotension, unspecified Plan to address problem: Hypotension: ultrafiltration as tolerated with HD . Midodrine if able to take PO. (5) Decubitus ulcer of sacral region, unstageable Current Visit: Yes Status: Acute Plan to address problem: Large decubitus ulcer wound cultures with polymicrobial growth s/p diverting colostomy continue antibiotics with meropenem. Subjective Principal diagnosis: drop in H/H Interval history: 63 year old with medical history significant for HTN, dementia, ESRD on hemodialysis TTS via a Right IJ Perm cath . with infected decubitus ulcers . Patient seen today He appears lethargic again today repeat dialysis scheduled today Review of systems unobtainable because mental status Objective - Vital Signs Vital signs: Vital Signs - 12hr 01/15/19 01/15/19 01/15/19 05:56 11:39 14:45 Temperature 98.2 F 98.0 F 98.0 F Pulse Rate 75 97 H 76 Respiratory 18 22 16 Rate Blood Pressure 111/68 122/71 115/62 O2 Sat by Pulse 100 100 Oximetry 01/15/19 01/15/19 15:00 15:15 Temperature Pulse Rate 77 78 Respiratory Rate Blood Pressure 106/58 108/55 O2 Sat by Pulse Oximetry - General Appearance General appearance: appears stated age, obese, chronically ill EENT: ATNC, PERRL, mucous membranes moist Neck: no JVD Respiratory: Present: Clear to Ascultation Cardiology: regular, S1S2 Gastrointestinal: normal, normoactive bowel sounds, other (colostomy) Integumentary: no rash Neurologic: confused Psychiatric: mood/affect appropriate - Lab 01/15/19 10:57 01/15/19 10:57 Most recent lab results Calcium 9.2 mg/dL (8.4-10.2) 01/15/19 10:57 Phosphorus 2.90 mg/dL (2.5-4.5) D 01/05/19 04:56 Magnesium 2.00 mg/dL (1.7-2.3) 01/05/19 04:56 - Imaging Chest x-ray: image reviewed (I reviewed Chest x ray without overt edema. ) Medications & Allergies - Medications Allergies/Adverse Reactions: Allergies haloperidol [From Haldol] Adverse Reaction (Verified 03/13/18 12:10) Unknown haloperidol lactate [From Haldol] Adverse Reaction (Verified 03/13/18 12:10) Unknown Home Medications: Home Medications Medication Instructions Recorded Confirmed Last Taken Type risperiDONE [RisperDAL] 1 mg PO QAM 03/13/18 12/27/18 Unknown History Sertraline [Zoloft] 100 mg PO QDAY 08/26/18 12/27/18 Unknown History risperiDONE [RisperDAL] 0.5 mg PO HS 08/26/18 12/27/18 Unknown History Polyethylene Glycol 3350 [Miralax 17 gm PO QDAY #30 packet 11/05/18 12/27/18 Unknown Rx 3350] Aspirin EC 81 mg PO DAILY #30 11/19/18 12/27/18 Unknown Rx Docusate Sodium [Colace CAP] 100 mg PO BID #60 11/19/18 12/27/18 Unknown Rx Folic Acid [Folvite] 1 mg PO DAILY #30 tab 11/19/18 12/27/18 Unknown Rx Famotidine [Pepcid] 20 mg PO DAILY tablet 12/08/18 12/27/18 Unknown Rx Gabapentin [Neurontin] 100 mg PO QHS capsule 12/08/18 12/27/18 Unknown Rx Metoprolol [Lopressor TAB] 50 mg PO BID 30 Days tablet 12/08/18 12/27/18 Unknown Rx Sevelamer Carbonate [Renvela] 800 mg PO TIDWM tablet 12/08/18 12/27/18 Unknown Rx hydrALAZINE [Apresoline TAB] 100 mg PO Q8HR #120 tablet 12/08/18 12/27/18 Unknown Rx Acetaminophen [Acetaminophen TAB] 650 mg PO Q12H PRN 12/15/18 12/27/18 Unknown History Amino Acids/Protein Hydrolys 30 ml PO BID 12/15/18 12/27/18 Unknown History [Pro-Stat Sugar Free Liquid] Glucagon,Human Recombinant 1 mg IJ Q15MIN PRN 12/15/18 12/27/18 Unknown History [Glucagon Emergency Kit] Insulin Aspart [NovoLOG 100 See Protocol SQ QWEEK 12/15/18 12/27/18 Unknown History UNITS/ML VIAL] Epoetin Solitario 10,000 Unit [Procrit] 10,000 unit IV UMA PRN vial 12/18/18 12/27/18 Unknown Rx Lispro Insulin [HumaLOG] 0 unit SUB-Q ACHS units 12/18/18 12/27/18 Unknown Rx risperiDONE [RisperDAL] 0.5 mg PO QHS tablet 12/18/18 12/27/18 Unknown Rx Active Medications: Generic Name Dose Route Start Last Admin Trade Name Freq PRN Reason Stop Dose Admin Acetaminophen 650 mg 12/26/18 21:40 01/10/19 18:33 Tylenol PO 650 mg Q4H PRN Administration Pain MILD(1-3)/Fever >100.5/HILL Lipase/Protease/Amylase 1 each 01/03/19 13:07 Pancreazkaren Barrientos 10,500 Unit FEEDTUBE PRN PRN For Clogged Feeding Tube Aspirin 81 mg 12/27/18 10:00 01/15/19 10:49 Halfprin Ec PO 81 mg DAILY SANCHEZ Administration Epoetin Solitario 20,000 unit 01/05/19 11:03 01/13/19 14:54 Procrit IV 20,000 unit UMA PRN Administration hemodialysis Famotidine 20 mg 12/27/18 10:00 01/15/19 10:49 Pepcid PO 20 mg DAILY SANCHEZ Administration Folic Acid 1 mg 12/27/18 10:00 01/15/19 10:49 Folvite PO 1 mg DAILY SANCHEZ Administration Gabapentin 100 mg 12/26/18 22:00 01/15/19 00:23 Neurontin PO 100 mg QHS SANCHEZ Administration Hydralazine HCl 100 mg 12/26/18 22:00 01/15/19 06:50 Apresoline PO Not Given Q8HR SANCHEZ Meropenem 1,000 mg/ Sodium 100 mls @ 100 mls/hr 01/05/19 11:00 01/15/19 10:48 Chloride IV 02/16/19 10:59 100 mls/hr Q24HR SANCHEZ Administration Vancomycin HCl 1 gm in 250 mls @ 167.007 mls/hr 01/06/19 20:00 01/14/19 07:25 Vancomycin/Ns 1 Gm/250 Ml IV 02/17/19 21:30 Infused TuThSa SANCHEZ Infusion Sodium Chloride 100 mls @ 999 mls/hr 01/08/19 08:31 Nacl 0.9% IV UMA PRN Hypotension Dextrose 1,000 mls @ 45 mls/hr 01/14/19 13:00 01/14/19 12:45 D5w IV 45 mls/hr DIRECT SANCHEZ Administration Sodium Chloride 500 mls @ 0 mls/hr 01/15/19 11:53 Nacl 0.9% 500 Ml IV 01/15/19 23:59 ONCE NR As Directed Insulin Human Regular 0 units 01/14/19 00:00 01/15/19 06:51 Humulin R SUB-Q Not Given Q6HR [facility] Protocol Metoprolol Tartrate 5 mg 12/27/18 18:55 12/29/18 05:41 Lopressor IV 5 mg Q5MIN PRN Administration increased heart rate Metoprolol Tartrate 100 mg 12/31/18 22:00 01/15/19 10:50 Lopressor PO Not Given BID [facility] Ondansetron HCl 4 mg 12/26/18 21:40 01/10/19 12:23 Zofran IV 4 mg Q8H PRN Administration Nausea And Vomiting Oxycodone/Acetaminophen 1 tab 01/05/19 08:30 01/15/19 11:17 Percocet 5/325 PO 1 tab Q6H PRN Administration Pain, Moderate (4-6) Risperidone 0.5 mg 12/26/18 22:00 01/15/19 00:25 Risperdal PO 0.5 mg QHS SANCHEZ Administration Risperidone 1 mg 12/27/18 10:00 01/15/19 10:49 Risperdal PO 1 mg QAM SANCHEZ Administration Sertraline HCl 100 mg 12/27/18 10:00 01/15/19 10:49 Zoloft PO 100 mg QDAY SANCHEZ Administration Simple Syrup 15 ml 01/03/19 13:07 Simple Syrup FEEDTUBE PRN PRN Hypoglycemia Simple Syrup 30 ml 01/03/19 13:07 Simple Syrup FEEDTUBE PRN PRN Hypoglycemia Sodium Bicarbonate 325 mg 01/03/19 13:07 Sodium Bicarbonate FEEDTUBE PRN PRN For Clogged Feeding Tube Sodium Chloride 10 ml 12/26/18 22:00 01/15/19 10:50 Sodium Chloride Flush Syringe 10 Ml IV 10 ml BID SANCHEZ Administration Sodium Chloride 10 ml 12/26/18 21:40 01/03/19 22:02 Sodium Chloride Flush Syringe 10 Ml IV 10 ml PRN PRN Administration LINE FLUSH Sodium Hypochlorite 1 applic 01/01/19 15:31 01/10/19 12:23 Dakin's Half Strength TP 1 applicatio Q12H PRN Administration Wound Care
--- NOTE | 2019-01-15 15:51 | Progress Note ---
Assessment and Plan Assessment and plan: Patient is a 63-year-old -[place] man from [facility] with a plethora of co-morbidities including blindness, CVA, CHF, PPM/ICD, loop recorder since 2013 that is MRI compatible, IDDM type 2, sepsis left foot ulcer, afib, ESRD with complications on HD TTS, hypertension, AOCD and GERD who presented to [facility] with altered sensorium and decreased responsiveness. Decreased responsive and not eating at all for 2 days. Patient has failure to thrive, altered mentation and weight loss of 20 pounds since 12/08/2018. Severe Sepsis due to Necrotizing Unstagable sacral decubitus ulcer s/p OR on 01/01/2019 for open excisional debridement of necrotic and infected sacral wound noted a large amount of necrotic tissue debrided and two abscess cavities at the caudad portion of the wound with a copious amount of purulent drainage which was drained. Wound cultures 01/02/2019 ESBL Kleb, MDR Ecoli and E raffinosus resistant to penicillin: On meropenam and vanc per ID. Consult Vascular surgery for central line placement, planned for diverting colostomy, family has agreed, Cardiology re-evaluated for surgery, input noted, high CV risk. d/w Dr. Villela, Vascular surgery placed central line placement for Merem, 01/08/19 Further debridement done 01/14/19 Acute on chronic Anemia of AOCD: Continue epoetin, Transfuse Additional 2 units PRBC, total of 6 units, follow cbc- no occult GI bleed noted. GI input noted, will obtain CT ABD AND PELVIS TO EVALUATE FOR RETROPERITONEAL BLEED. Although 150cc Of fluid loss documented during debridement Acute metabolic encephalopathy due to the above Acute systolic exacerbation of CHF (congestive heart failure): treat via Ultrafiltration during HD Afib with RVR: rate control only and optimize meds per Cardiology ESRD needing dialysis: Nephology is managing, Continue hemo dialysis Insulin dependent diabetes mellitus, A1c is 4.2: insulin was dc Severe malnutrition with FTT: 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, cont oral diet, medical transport specialist input appreciated, PEG tube placed on 01/02/19 Hypertension: Continue antihypertensives h/o Peripheral neuropathy: Continue gabapentin Elevated troponin, Secondary to end-stage renal disease, chf and afib, Cardiology input appreciated DVT prophylaxis On heparin and GI prophylaxis Poor prognosis History Interval history: Patient was seen and examined. Follow-up on current diagnosis Sacral decubitus ulcer. Clinically Unchanged. No overnight events reported to me. Imaging, nursing note, chart, labs and old chart reviewed. S/P DEBRIDEMENT Hospitalist Physical - Physical exam Narrative exam: Gen: severely chronically ill appearing, semi-comatose, mouth open, head flexed, eyes closed, unresponsive, Moans at times HEENT: NCAT, >right eye matted shut, OP dried out with mouth open but good oral care done. Neck: supple, no adenopathy, no thyromegaly, no JVD CVS/Heart: irregular irregular, normal S1S2, pulses present bilaterally Chest/Lungs: poor air entry, Symmetrical chest expansion, good air entry bilaterally GI/Abdomen: soft, peg in place, NTND, good bowel sounds, no guarding or rebound /Bladder: no suprapubic tenderness, no CVA or paraspinal tenderness Extermity/Skin: atrophic contracted legs, excoriated perineal area MSK: doesn't follow commands Neuro: doesn't follow commands Psych: unresponsive - Constitutional Vitals: Temp Pulse Resp BP Pulse Ox 98.0 F 81 16 103/55 100 01/15/19 14:45 01/15/19 15:30 01/15/19 14:45 01/15/19 15:30 01/15/19 11:39 General appearance: Present: no acute distress, cachectic, disheveled Results - Labs CBC & Chem 7: 01/15/19 10:57 01/15/19 10:57 Labs: Laboratory Last Values WBC 6.3 K/mm3 (4.5-11.0) 01/15/19 10:57 RBC 2.28 M/mm3 (3.65-5.03) L 01/15/19 10:57 Hgb 6.4 gm/dl (11.8-15.2) L 01/15/19 10:57 Hct 19.9 % (35.5-45.6) L* 01/15/19 10:57 MCV 87 fl (84-94) 01/15/19 10:57 MCH 28 pg (28-32) 01/15/19 10:57 MCHC 32 % (32-34) 01/15/19 10:57 RDW 18.6 % (13.2-15.2) H 01/15/19 10:57 Plt Count 192 K/mm3 (140-440) 01/15/19 10:57 Lymph % (Auto) 5.8 % (13.4-35.0) L 01/07/19 00:45 [place] % (Auto) 6.0 % (0.0-7.3) 01/07/19 00:45 Eos % (Auto) 3.8 % (0.0-4.3) 01/07/19 00:45 Baso % (Auto) 0.2 % (0.0-1.8) 01/07/19 00:45 Lymph # 0.5 K/mm3 (1.2-5.4) L 01/07/19 00:45 [place] # 0.5 K/mm3 (0.0-0.8) 01/07/19 00:45 Eos # 0.3 K/mm3 (0.0-0.4) 01/07/19 00:45 Baso # 0.0 K/mm3 (0.0-0.1) 01/07/19 00:45 Add Manual Diff Complete 01/03/19 17:16 Total Counted 100 01/03/19 17:16 Seg Neutrophils % 84.2 % (40.0-70.0) H 01/07/19 00:45 Seg Neuts % (Manual) 96.0 % (40.0-70.0) H 01/03/19 17:16 0 % 01/03/19 17:16 2.0 % (13.4-35.0) L 01/03/19 17:16 Reactive Lymphs % (Man) 0 % 01/03/19 17:16 2.0 % (0.0-7.3) 01/03/19 17:16 0 % (0.0-4.3) 01/03/19 17:16 0 % (0.0-1.8) 01/03/19 17:16 0 % 01/03/19 17:16 0 % 01/03/19 17:16 0 % 01/03/19 17:16 0 % 01/03/19 17:16 Nucleated RBC % Not Reportable 01/03/19 17:16 Seg Neutrophils # 6.9 K/mm3 (1.8-7.7) 01/07/19 00:45 Seg Neutrophils # Man 10.8 K/mm3 (1.8-7.7) H 01/03/19 17:16 Band Neutrophils # 0.0 K/mm3 01/03/19 17:16 0.2 K/mm3 (1.2-5.4) L 01/03/19 17:16 Abs React Lymphs (Man) 0.0 K/mm3 01/03/19 17:16 0.2 K/mm3 (0.0-0.8) 01/03/19 17:16 0.0 K/mm3 (0.0-0.4) 01/03/19 17:16 0.0 K/mm3 (0.0-0.1) 01/03/19 17:16 0.0 K/mm3 01/03/19 17:16 0.0 K/mm3 01/03/19 17:16 0.0 K/mm3 01/03/19 17:16 Blast Cells # 0.0 K/mm3 01/03/19 17:16 WBC Morphology Not Reportable 01/03/19 17:16 Hypersegmented Neuts Not Reportable 01/03/19 17:16 Hyposegmented Neuts Not Reportable 01/03/19 17:16 Hypogranular Neuts Not Reportable 01/03/19 17:16 Not Reportable 01/03/19 17:16 Not Reportable 01/03/19 17:16 Not Reportable 01/03/19 17:16 Not Reportable 01/03/19 17:16 Not Reportable 01/03/19 17:16 Not Reportable 01/03/19 17:16 Consistent w auto 01/03/19 17:16 Not Reportable 01/03/19 17:16 Plt Clumps, EDTA Not Reportable 01/03/19 17:16 Not Reportable 01/03/19 17:16 Not Reportable 01/03/19 17:16 Not Reportable 01/03/19 17:16 Plt Morphology Comment Not Reportable 01/03/19 17:16 RBC Morphology Not Reportable 01/03/19 17:16 Dimorphic RBCs Not Reportable 01/03/19 17:16 Not Reportable 01/03/19 17:16 1+ 01/03/19 17:16 Few 01/03/19 17:16 1+ 01/03/19 17:16 Not Reportable 01/03/19 17:16 Not Reportable 01/03/19 17:16 Not Reportable 01/03/19 17:16 Not Reportable 01/03/19 17:16 Not Reportable 01/03/19 17:16 Few 01/03/19 17:16 Not Reportable 01/03/19 17:16 Few 01/03/19 17:16 Not Reportable 01/03/19 17:16 Not Reportable 01/03/19 17:16 Not Reportable 01/03/19 17:16 Not Reportable 01/03/19 17:16 Not Reportable 01/03/19 17:16 Not Reportable 01/03/19 17:16 Not Reportable 01/03/19 17:16 Acanthocytes (Spur) Not Reportable 01/03/19 17:16 Rouleaux Not Reportable 01/03/19 17:16 Not Reportable 01/03/19 17:16 Not Reportable 01/03/19 17:16 Not Reportable 01/03/19 17:16 Not Reportable 01/03/19 17:16 Hem Pathologist Commnt No 01/03/19 17:16 PT 18.0 Sec. (12.2-14.9) H 01/02/19 05:39 INR 1.39 (0.87-1.13) H 01/02/19 05:39 Sodium 139 mmol/L (137-145) 01/15/19 10:57 Potassium 5.4 mmol/L (3.6-5.0) H 01/15/19 10:57 Chloride 101.1 mmol/L (98-107) 01/15/19 10:57 Carbon Dioxide 29 mmol/L (22-30) 01/15/19 10:57 14 mmol/L 01/15/19 10:57 BUN 27 mg/dL (9-20) H 01/15/19 10:57 2.4 mg/dL (0.8-1.5) H 01/15/19 10:57 Estimated GFR 33 ml/min 01/15/19 10:57 11 % 01/15/19 10:57 Glucose 104 mg/dL (75-100) H 01/15/19 10:57 POC Glucose 122 (70-105) H 01/15/19 11:48 < 4.2 % (4-6) 12/26/18 17:12 Lactic Acid 1.10 mmol/L (0.7-2.0) 12/27/18 07:04 Calcium 9.2 mg/dL (8.4-10.2) 01/15/19 10:57 Phosphorus 2.90 mg/dL (2.5-4.5) D 01/05/19 04:56 Magnesium 2.00 mg/dL (1.7-2.3) 01/05/19 04:56 0.20 mg/dL (0.1-1.2) 01/07/19 11:16 AST 12 units/L (5-40) 01/07/19 11:16 ALT < 5 units/L (7-56) L 01/07/19 11:16 92 units/L (35-129) 01/07/19 11:16 29 units/L (55-170) L 12/26/18 17:12 0.158 ng/mL (0.00-0.029) H* 12/26/18 17:12 5.7 g/dL (6.3-8.2) L 01/07/19 11:16 2.0 g/dL (3.9-5) L 01/07/19 11:16 0.5 % 01/07/19 11:16 Triglycerides 75 mg/dL (2-149) 12/26/18 17:12 Cholesterol 109 mg/dL (50-199) 12/26/18 17:12 43 mg/dL (50-130) L 12/26/18 17:12 41 mg/dL (40-59) 12/26/18 17:12 2.65 % 12/26/18 17:12 PTH Intact 178.6 pg/mL (15-65) H 01/01/19 17:32 Random Vancomycin 14.3 ug/mL (0-40.0) 01/15/19 10:57 Blood Type O POSITIVE 01/13/19 15:22 Antibody Screen Negative 01/13/19 15:22 Crossmatch See Detail 01/13/19 15:22 Active Medications - Current Medications Current Medications: Generic Name Dose Route Start Last Admin Trade Name Freq PRN Reason Stop Dose Admin Acetaminophen 650 mg 12/26/18 21:40 01/10/19 18:33 Tylenol PO 650 mg Q4H PRN Administration Pain MILD(1-3)/Fever >100.5/HILL Lipase/Protease/Amylase 1 each 01/03/19 13:07 Pancrejewel Barrientos 10,500 Unit FEEDTUBE PRN PRN For Clogged Feeding Tube Aspirin 81 mg 12/27/18 10:00 01/15/19 10:49 Halfprin Ec PO 81 mg DAILY SANCHEZ Administration Epoetin Solitario 20,000 unit 01/05/19 11:03 01/13/19 14:54 Procrit IV 20,000 unit UMA PRN Administration hemodialysis Famotidine 20 mg 12/27/18 10:00 01/15/19 10:49 Pepcid PO 20 mg DAILY SANCHEZ Administration Folic Acid 1 mg 12/27/18 10:00 01/15/19 10:49 Folvite PO 1 mg DAILY SANCHEZ Administration Gabapentin 100 mg 12/26/18 22:00 01/15/19 00:23 Neurontin PO 100 mg QHS SANCHEZ Administration Hydralazine HCl 100 mg 12/26/18 22:00 01/15/19 15:37 Apresoline PO Not Given Q8HR SANCHEZ Meropenem 1,000 mg/ Sodium 100 mls @ 100 mls/hr 01/05/19 11:00 01/15/19 10:48 Chloride IV 02/16/19 10:59 100 mls/hr Q24HR SANCHEZ Administration Vancomycin HCl 1 gm in 250 mls @ 167.007 mls/hr 01/06/19 20:00 01/14/19 07:25 Vancomycin/Ns 1 Gm/250 Ml IV 02/17/19 21:30 Infused TuThSa SANCHEZ Infusion Sodium Chloride 100 mls @ 999 mls/hr 01/08/19 08:31 Nacl 0.9% IV UMA PRN Hypotension Dextrose 1,000 mls @ 45 mls/hr 01/14/19 13:00 01/14/19 12:45 D5w IV 45 mls/hr DIRECT SANCHEZ Administration Sodium Chloride 500 mls @ 0 mls/hr 01/15/19 11:53 Nacl 0.9% 500 Ml IV 01/15/19 23:59 ONCE NR As Directed Insulin Human Regular 0 units 01/14/19 00:00 01/15/19 12:00 Humulin R SUB-Q Not Given Q6HR SANCHEZ Protocol Metoprolol Tartrate 5 mg 12/27/18 18:55 12/29/18 05:41 Lopressor IV 5 mg Q5MIN PRN Administration increased heart rate Metoprolol Tartrate 100 mg 12/31/18 22:00 01/15/19 10:50 Lopressor PO Not Given BID SANCHEZ Ondansetron HCl 4 mg 12/26/18 21:40 01/10/19 12:23 Zofran IV 4 mg Q8H PRN Administration Nausea And Vomiting Oxycodone/Acetaminophen 1 tab 01/05/19 08:30 01/15/19 11:17 Percocet 5/325 PO 1 tab Q6H PRN Administration Pain, Moderate (4-6) Risperidone 0.5 mg 12/26/18 22:00 01/15/19 00:25 Risperdal PO 0.5 mg QHS SANCHEZ Administration Risperidone 1 mg 12/27/18 10:00 01/15/19 10:49 Risperdal PO 1 mg QAM SANCHEZ Administration Sertraline HCl 100 mg 12/27/18 10:00 01/15/19 10:49 Zoloft PO 100 mg QDAY SANCHEZ Administration Simple Syrup 15 ml 01/03/19 13:07 Simple Syrup FEEDTUBE PRN PRN Hypoglycemia Simple Syrup 30 ml 01/03/19 13:07 Simple Syrup FEEDTUBE PRN PRN Hypoglycemia Sodium Bicarbonate 325 mg 01/03/19 13:07 Sodium Bicarbonate FEEDTUBE PRN PRN For Clogged Feeding Tube Sodium Chloride 10 ml 12/26/18 22:00 01/15/19 10:50 Sodium Chloride Flush Syringe 10 Ml IV 10 ml BID SANCHEZ Administration Sodium Chloride 10 ml 12/26/18 21:40 01/03/19 22:02 Sodium Chloride Flush Syringe 10 Ml IV 10 ml PRN PRN Administration LINE FLUSH Sodium Hypochlorite 1 applic 01/01/19 15:31 01/10/19 12:23 Dakin's Half Strength TP 1 applicatio Q12H PRN Administration Wound Care Nutrition/Malnutrition Assess - Dietary Evaluation Nutrition/Malnutrition Findings: Nutrition Notes Start: 12/27/18 17:15 Freq: Status: Active Protocol: Document 01/09/19 17:07 RM (Rec: 01/09/19 17:17 [email or web address]) Nutrition Notes Initial or Follow up Reassessment Current Diagnosis CKD (stage V CKD),Diabetes, Sepsis,Hypertension Other Pertinent Diagnosis Hx CVA,S/P PEG, Sacral wound, FTT, acute encephalopathy Current Diet TF (blank) Labs/Tests Reviewed Pertinent Medications Reviewed Height 5 ft 7 in Weight 84 kg [place] Body Weight (kg) 67.27 BMI 29.0 Subjective/Other Information Consulted for TF recommendation. Renal diet D/C'd. Per nurse pt has Hx of refusing to eat at times. Burn Absent Trauma Absent #2 Nutrition Diagnosis Increased nutrient needs ( specify in comment below) Diagnosis Progress(for reassessment Continues documentation) #1 Nutrition Diagnosis Inadequate oral intake Diagnosis Progress(for reassessment Continues documentation) Is patient on ventilator? No Is Patient Ambulatory and/or Out of Bed No REE-([facility]-confined to bed) 1911.492 Kcal/Kg value to use for calculation 17 Approximate Energy Requirements Using 1428 kcal/Kg Calculation Used for Recommendations [facility] Additional Notes Pro needs 1.2-1.4g/k- 118g/day Fluid needs 1-1.5L/day Nutrition Intervention Nutrition Support: Resume Glucerna 1.2 at 65 ml/ hr. Water flush of 100 mls q 4 hrs . Kcal 1,872 Protein (gm) 94 Carbohydrates (gm) 179 Fat (gm) 94 Fluid (mL) 1,256 Fiber (gm) 25 Goal #1 Meet at least 75% of calorie and protein needs via TF Anticipated Discharge Needs: TF Follow-Up By: 01/16/19 Additional Comments Follow for TF tolerance
[2019-01-15] MEDS: VANCOMYCIN/NS 1 GM/250 ML 1 GM/250 ML BAG IV SCH (20:40)
[2019-01-16] MEDS: PERCOCET 5/325 PO PRN ×3 (03:02→23:30)
[2019-01-16] MEDS: HumuLIN R SUB-Q SCH ×4 (06:20→19:39)
[2019-01-16] MEDS: APRESOLINE PO SCH ×3 (06:24→23:28)
[2019-01-16 06:44] LABS: Hematocrit 26.8 % (35.5-45.6); Hemoglobin 8.7 gm/dl (11.8-15.2); Mean Corpuscular HGB Conc 32 % (32-34); Mean Corpuscular Volume 89 fl (84-94); Platelet Count 173 K/mm3 (140-440); Red Blood Count 3.02 M/mm3 (3.65-5.03); Red Cell Distribution Width 17.4 % (13.2-15.2)
[2019-01-16 07:09] LABS: Calcium 8.6 mg/dL (8.4-10.2)
[2019-01-16] MEDS: PEPCID PO SCH (09:21)
[2019-01-16] MEDS: LOPRESSOR PO SCH (09:21)
[2019-01-16] MEDS: FOLVITE PO SCH (09:21)
[2019-01-16] MEDS: RisperDAL PO SCH ×2 (09:21→23:28)
[2019-01-16] MEDS: HALFPRIN EC PO SCH (09:21)
[2019-01-16] MEDS: ZOLOFT PO SCH (09:21)
[2019-01-16] MEDS: SODIUM CHLORIDE FLUSH SYRINGE 10 ML IV SCH ×2 (09:22→22:00)
[2019-01-16] MEDS: MERREM 1,000 MG in NACL 0.9% 100 ML IV SCH (09:22)
--- NOTE | 2019-01-16 09:23 | Cat Scan Report ---
CT ABDOMEN AND PELVIS WITHOUT CONTRAST INDICATION: Abdominal pain. COMPARISON: 10/29/2018 CT. FINDINGS: Noncontrast abdomen and pelvis CT performed. LUNG BASES: Increased, small to moderate pleural effusion and underlying atelectasis noted with AP thickness now of approximately 4.5 cm on the right and 3.2 cm on the left on axial image 23, series 2. Mild groundglass haziness in the remainder aerated lungs also slightly more prominent. Stable coronary calcifications, gynecomastia and partially imaged dialysis graft related changes in the left upper arm medially as also streak artifact from left paramidline anterior chest wall subcutaneous implanted device. Few small calcified granulomas in the atelectatic lungs not excluded as also mild nonspecific distal esophageal prominence/thickening. ABDOMEN: Please note that sensitivity to detect small visceral lesions is limited due to the absence of intravenous or oral contrast. Streak artifact from patient's arms by the sides also limits exam. Interval percutaneous gastrostomy tube placement. Opacified GI tract evaluation limited, though grossly nonobstructive with lower abdominal bowel postsurgical change/possible Nowak's pouch as on axial series 2, image 143, amongst others. A left lower quadrant colostomy appears new as on axial series 2, images 113-126, approximately 3 cm left paraumbilical. Tiny fat containing umbilical hernia also again seen. No significant colonic stool burden with possibly liquid/somewhat poorly formed stool in the descending colon. New small perihepatic ascites with attenuation values ranging between 18-37 HU. Slight nonspecific hepatic surface waviness. Small fluid also now noted in the left upper quadrant/perisplenic as measuring 27 HU, axial image 50. Minimal pericholecystic fluid/stranding also noted without definite gallbladder wall thickening or radiopaque gallstones. Pancreas grossly unremarkable, though its contours not as well delineated. Adrenals, nonaneurysmal abdominal aorta with atherosclerotic calcifications and IVC within normal limits. Bilateral kidneys again nonhydronephrotic, though atrophic with numerous small hypodensities/cysts. No definite size significant adenopathy. Small ascites also tracks along the paracolic gutters as on axial image 103, measuring up to 72 HU. PELVIS: Fernandez catheter now decompresses the urinary bladder with nonspecific exaggerated wall thickness. Lesser rectosigmoid stool, though with nonspecific diffuse wall thickening as on axial images 156-175 as also nonspecific soft tissue fullness in the anorectal region as on axial images 180-196. Mild presacral/pararectal fat stranding again noted without significant pelvic ascites or definite adenopathy. New extensive right gluteal decubitus ulcer though now seen as on axial images 141-196 with air tracking to the coccyx as also to the anorectal region. Diffuse subcutaneous stranding/edema, greatest left flank/lower quadrant. Stable bones with multilevel degenerative changes, including bridging lower thoracic osteophytes, multilevel endplate irregularities/Schmorl's nodes, lower lumbar degenerative spurring and facet arthropathy, bilateral SI joint degenerative spurring, bilateral hip/acetabular degenerative changes/spurring and possible renal osteodystrophy. CONCLUSION: 1. New small abdominal ascites/fluid with predominantly complex attenuation, not excluded hemorrhagic. 2. Interval postsurgical changes as gastrostomy tube placement and left lower quadrant colostomy/Stephen's pouch creation. Lesser rectosigmoid stool impaction, though nonspecific wall thickening, pelvic/pararectal fat stranding and nonspecific anorectal soft tissue fullness possible on this limited, unenhanced exam, as described. 3. Extensive right gluteal decubitus ulcer changes also now seen approaching the coccyx and the anorectal junction, as detailed above. 4. Mildly increased bilateral pleural effusions and atelectasis. Diffuse subcutaneous edema also again seen. 5. Various other findings as at the imaged lung bases, atrophic kidneys, new Fernandez catheter and various bony degenerative changes, amongst others, as detailed above. Thank you for the opportunity to participate in this patient's care.
--- NOTE | 2019-01-16 10:33 | Progress Note ---
Assessment and Plan 63 yo M s/p debridement of sacral wound, POD 2 and diverting end colostomy on 01/12/19 1. infected stage 4 sacral wound 2. malnutrition 3. failure to thrive s/p PEG tube 4. bedbound 5. AMS 6. ESRD on HD 7. hyponatremia CT scan A/P - ascites, ?hemorrhage Plan: 1. Alginate packing to wound with pressure dressing. If bleeding continues, nursing advised to call me. 2. c/w TF via PEG 3. MRI pelvis could not be done due to loop recorder 4. c/w IV abx. Would treat as clinical osteomyelitis 5. continue offloading and frequent turning of patient 6. monitor nutrition labs weekly 7. transfused 2 units PRBC yesterday and Hb responded appropriately. Repeat Hb down to 7.6 from 8.7. Will continue to monitor. Likely from sacral wound. 8. Doubt patient has intraperitoneal hemorrhage. Minimal bleeding during surgery, fluid may be residual blood mixed with irrigation. Will follow up in am to ensure sacral wound is stable and Hb is stable. D/W Dr. Lopez Subjective Date of service: 01/16/19 Narrative: Pt seen and examined. Per RN overnight dressing needed to be changed due to blood soaking through. No f/c. Objective Vital Signs - 12hr 01/16/19 01/16/19 01/16/19 03:02 04:02 05:44 Temperature 97.8 F Pulse Rate 96 H Respiratory 20 17 18 Rate Blood Pressure 126/73 O2 Sat by Pulse 100 Oximetry - General physical appearance Narrative Exam: Gen: Awake and alert. NAD CV: s1, S2+ resp: even and unlabored Abd: soft, NT, ND. PEG in place. Colostomy pink with brown formed stool in bag. Incisions c/d/i Ext: contracted, edema Sacrum: Dressing soaked with blood. All dressing material and packing removed. No surgicel seen in wound. Skin edges at three spots with venous bleeding, slow. Surgical applied to all areas and pressure held for 10 minutes. All bleeding controlled with surgicel and pressure, no additional bleeding seen. Wound packed with calcium alginate and packed with 4x4 gauze, ABD pads and covered with sacral foam dressing. - Labs 01/16/19 13:10 01/16/19 06:28 Diabetes panel 01/15/19 01/16/19 Range/Units 10:57 06:28 Sodium 139 137 (137-145) mmol/L Potassium 5.4 H 4.8 (3.6-5.0) mmol/L Chloride 101.1 99.4 (98-107) mmol/L Carbon Dioxide 29 29 (22-30) mmol/L BUN 27 H 17 (9-20) mg/dL Creatinine 2.4 H 1.7 H (0.8-1.5) mg/dL Glucose 104 H 81 (75-100) mg/dL Calcium 9.2 8.6 (8.4-10.2) mg/dL Calcium panel 01/15/19 01/16/19 Range/Units 10:57 06:28 Calcium 9.2 8.6 (8.4-10.2) mg/dL Pituitary panel 01/15/19 01/16/19 Range/Units 10:57 06:28 Sodium 139 137 (137-145) mmol/L Potassium 5.4 H 4.8 (3.6-5.0) mmol/L Chloride 101.1 99.4 (98-107) mmol/L Carbon Dioxide 29 29 (22-30) mmol/L BUN 27 H 17 (9-20) mg/dL Creatinine 2.4 H 1.7 H (0.8-1.5) mg/dL Glucose 104 H 81 (75-100) mg/dL Calcium 9.2 8.6 (8.4-10.2) mg/dL Adrenal panel 01/15/19 01/16/19 Range/Units 10:57 06:28 Sodium 139 137 (137-145) mmol/L Potassium 5.4 H 4.8 (3.6-5.0) mmol/L Chloride 101.1 99.4 (98-107) mmol/L Carbon Dioxide 29 29 (22-30) mmol/L BUN 27 H 17 (9-20) mg/dL Creatinine 2.4 H 1.7 H (0.8-1.5) mg/dL Glucose 104 H 81 (75-100) mg/dL Calcium 9.2 8.6 (8.4-10.2) mg/dL
--- NOTE | 2019-01-16 13:11 | Progress Note ---
Assessment and Plan - Patient Problems (1) ESRD (end stage renal disease) Current Visit: Yes Status: Acute Plan to address problem: END-STAGE RENAL DISEASE. DIALYSIS ACCESS RIGHT tunnel dialysis catheter Dialysis ON 01/12 for hyperkalemia prior to surgery continue hemodialysis Saturday, , Saturday (2) CHF (congestive heart failure) Current Visit: Yes Status: Acute Qualifiers: Heart failure type: unspecified Heart failure chronicity: acute on chronic Qualified Code(s): I50.9 - Heart failure, unspecified Plan to address problem: Chronic Congestive heart failure: continue current medications. (3) Anemia in ESRD (end-stage renal disease) Current Visit: Yes Status: Chronic Plan to address problem: moderate Anemia due to chronic kidney disease Hb: 8.7g/dl continue epogen [id number] q TTS monitor cbc (4) Hypotension Current Visit: No Status: Acute Qualifiers: Hypotension type: unspecified hypotension type Qualified Code(s): I95.9 - Hypotension, unspecified Plan to address problem: Hypotension: ultrafiltration as tolerated with HD . Midodrine if able to take PO. (5) Decubitus ulcer of sacral region, unstageable Current Visit: Yes Status: Acute Plan to address problem: Large decubitus ulcer wound cultures with polymicrobial growth s/p diverting colostomy continue antibiotics with meropenem. Subjective Principal diagnosis: drop in H/H Interval history: 63 year old with medical history significant for HTN, dementia, ESRD on hemodialysis TTS via a Right IJ Perm cath . with infected decubitus ulcers . Patient seen today He appears lethargic again today Review of systems unobtainable because mental status not in any acute distress Will hold HD today. Objective - Vital Signs Vital signs: Vital Signs - 12hr 01/16/19 01/16/19 01/16/19 03:02 04:02 05:44 Temperature 97.8 F Pulse Rate 96 H Respiratory 20 17 18 Rate Blood Pressure 126/73 O2 Sat by Pulse 100 Oximetry - General Appearance General appearance: obese, chronically ill, frail EENT: ATNC, PERRL Respiratory: Present: Decreased Breath Sounds Cardiology: regular, S1S2, faint heart tones Gastrointestinal: normal, normoactive bowel sounds Integumentary: ulcer, other Neurologic: disoriented, other (weakness. ) Psychiatric: other (depressed) - Lab 01/16/19 06:28 01/16/19 06:28 Most recent lab results Calcium 8.6 mg/dL (8.4-10.2) 01/16/19 06:28 Phosphorus 2.90 mg/dL (2.5-4.5) D 01/05/19 04:56 Magnesium 2.00 mg/dL (1.7-2.3) 01/05/19 04:56 - Imaging CT scan - abdomen: image reviewed (I reviewed CT abdomen with ascites, extensive gluteal ulcer) Medications & Allergies - Medications Allergies/Adverse Reactions: Allergies haloperidol [From Haldol] Adverse Reaction (Verified 03/13/18 12:10) Unknown haloperidol lactate [From Haldol] Adverse Reaction (Verified 03/13/18 12:10) Unknown Home Medications: Home Medications Medication Instructions Recorded Confirmed Last Taken Type risperiDONE [RisperDAL] 1 mg PO QAM 03/13/18 12/27/18 Unknown History Sertraline [Zoloft] 100 mg PO QDAY 08/26/18 12/27/18 Unknown History risperiDONE [RisperDAL] 0.5 mg PO HS 08/26/18 12/27/18 Unknown History Polyethylene Glycol 3350 [Miralax 17 gm PO QDAY #30 packet 11/05/18 12/27/18 Unknown Rx 3350] Aspirin EC 81 mg PO DAILY #30 11/19/18 12/27/18 Unknown Rx Docusate Sodium [Colace CAP] 100 mg PO BID #60 11/19/18 12/27/18 Unknown Rx Folic Acid [Folvite] 1 mg PO DAILY #30 tab 11/19/18 12/27/18 Unknown Rx Famotidine [Pepcid] 20 mg PO DAILY tablet 12/08/18 12/27/18 Unknown Rx Gabapentin [Neurontin] 100 mg PO QHS capsule 12/08/18 12/27/18 Unknown Rx Metoprolol [Lopressor TAB] 50 mg PO BID 30 Days tablet 12/08/18 12/27/18 Unknown Rx Sevelamer Carbonate [Renvela] 800 mg PO TIDWM tablet 12/08/18 12/27/18 Unknown Rx hydrALAZINE [Apresoline TAB] 100 mg PO Q8HR #120 tablet 12/08/18 12/27/18 Unknown Rx Acetaminophen [Acetaminophen TAB] 650 mg PO Q12H PRN 12/15/18 12/27/18 Unknown History Amino Acids/Protein Hydrolys 30 ml PO BID 12/15/18 12/27/18 Unknown History [Pro-Stat Sugar Free Liquid] Glucagon,Human Recombinant 1 mg IJ Q15MIN PRN 12/15/18 12/27/18 Unknown History [Glucagon Emergency Kit] Insulin Aspart [NovoLOG 100 See Protocol SQ QWEEK 12/15/18 12/27/18 Unknown History UNITS/ML VIAL] Epoetin Solitario 10,000 Unit [Procrit] 10,000 unit IV UMA PRN vial 12/18/18 12/27/18 Unknown Rx Lispro Insulin [HumaLOG] 0 unit SUB-Q ACHS units 12/18/18 12/27/18 Unknown Rx risperiDONE [RisperDAL] 0.5 mg PO QHS tablet 12/18/18 12/27/18 Unknown Rx Meropenem [Merrem] 1,000 mg IV Q24HR vial 01/16/19 Unknown Rx Active Medications: Generic Name Dose Route Start Last Admin Trade Name Freq PRN Reason Stop Dose Admin Acetaminophen 650 mg 12/26/18 21:40 01/10/19 18:33 Tylenol PO 650 mg Q4H PRN Administration Pain MILD(1-3)/Fever >100.5/HILL Lipase/Protease/Amylase 1 each 01/03/19 13:07 Pancrejewel Barrientos 10,500 Unit FEEDTUBE PRN PRN For Clogged Feeding Tube Aspirin 81 mg 12/27/18 10:00 01/16/19 09:21 Halfprin Ec PO 81 mg DAILY SANCHEZ Administration Epoetin Solitario 20,000 unit 01/05/19 11:03 01/13/19 14:54 Procrit IV 20,000 unit UMA PRN Administration hemodialysis Famotidine 20 mg 12/27/18 10:00 01/16/19 09:21 Pepcid PO 20 mg DAILY SANCHEZ Administration Folic Acid 1 mg 12/27/18 10:00 01/16/19 09:21 Folvite PO 1 mg DAILY SANCHEZ Administration Gabapentin 100 mg 12/26/18 22:00 01/15/19 21:19 Neurontin PO 100 mg QHS SANCHEZ Administration Hydralazine HCl 100 mg 12/26/18 22:00 01/16/19 06:24 Apresoline PO 100 mg Q8HR SANCHEZ Administration Meropenem 1,000 mg/ Sodium 100 mls @ 100 mls/hr 01/05/19 11:00 01/16/19 09:22 Chloride IV 02/16/19 10:59 100 mls/hr Q24HR SANCHEZ Administration Vancomycin HCl 1 gm in 250 mls @ 167.007 mls/hr 01/06/19 20:00 01/15/19 20:40 Vancomycin/Ns 1 Gm/250 Ml IV 02/17/19 21:30 167.007 mls/hr TuThSa SANCHEZ Administration Sodium Chloride 100 mls @ 999 mls/hr 01/08/19 08:31 Nacl 0.9% IV UMA PRN Hypotension Dextrose 1,000 mls @ 45 mls/hr 01/14/19 13:00 01/14/19 12:45 D5w IV 45 mls/hr DIRECT SANCHEZ Administration Insulin Human Regular 0 units 01/14/19 00:00 01/16/19 06:20 Humulin R SUB-Q Not Given Q6HR [facility] Protocol Metoprolol Tartrate 5 mg 12/27/18 18:55 12/29/18 05:41 Lopressor IV 5 mg Q5MIN PRN Administration increased heart rate Metoprolol Tartrate 100 mg 12/31/18 22:00 01/16/19 09:21 Lopressor PO 100 mg BID SANCHEZ Administration Ondansetron HCl 4 mg 12/26/18 21:40 01/10/19 12:23 Zofran IV 4 mg Q8H PRN Administration Nausea And Vomiting Oxycodone/Acetaminophen 1 tab 01/05/19 08:30 01/16/19 03:02 Percocet 5/325 PO 1 tab Q6H PRN Administration Pain, Moderate (4-6) Risperidone 0.5 mg 12/26/18 22:00 01/15/19 21:19 Risperdal PO 0.5 mg QHS SANCHEZ Administration Risperidone 1 mg 12/27/18 10:00 01/16/19 09:21 Risperdal PO 1 mg QAM SANCHEZ Administration Sertraline HCl 100 mg 12/27/18 10:00 01/16/19 09:21 Zoloft PO 100 mg QDAY SANCHEZ Administration Simple Syrup 15 ml 01/03/19 13:07 Simple Syrup FEEDTUBE PRN PRN Hypoglycemia Simple Syrup 30 ml 06/15/19 13:07 Simple Syrup FEEDTUBE PRN PRN Hypoglycemia Sodium Bicarbonate 325 mg 01/03/19 13:07 Sodium Bicarbonate FEEDTUBE PRN PRN For Clogged Feeding Tube Sodium Chloride 10 ml 12/26/18 22:00 01/16/19 09:22 Sodium Chloride Flush Syringe 10 Ml IV 10 ml BID SANCHEZ Administration Sodium Chloride 10 ml 12/26/18 21:40 01/03/19 22:02 Sodium Chloride Flush Syringe 10 Ml IV 10 ml PRN PRN Administration LINE FLUSH Sodium Hypochlorite 1 applic 01/01/19 15:31 01/10/19 12:23 Dakin's Half Strength TP 1 applicatio Q12H PRN Administration Wound Care
[2019-01-16 13:32] LABS: Hematocrit 22.8 % (35.5-45.6); Hemoglobin 7.6 gm/dl (11.8-15.2)
[2019-01-16] MEDS ORDERED: NACL 0.9% 500 ML 500 ML IV NR (13:52)
[2019-01-16] MEDS ORDERED: NACL 0.9 (PRIMING MACHINE ONLY DIALYSIS) MC ONE (14:36)
--- NOTE | 2019-01-16 15:08 | Progress Note ---
Assessment and Plan Assessment and plan: Patient is a 63-year-old -[place] man from [facility] with a plethora of co-morbidities including blindness, CVA, CHF, PPM/ICD, loop recorder since 2013 that is MRI compatible, IDDM type 2, sepsis left foot ulcer, afib, ESRD with complications on HD TTS, hypertension, AOCD and GERD who presented to [facility] with altered sensorium and decreased responsiveness. Decreased responsive and not eating at all for 2 days. Patient has failure to thrive, altered mentation and weight loss of 20 pounds since 12/08/2018. Severe Sepsis due to Necrotizing Unstagable sacral decubitus ulcer s/p OR on 01/01/2019 for open excisional debridement of necrotic and infected sacral wound noted a large amount of necrotic tissue debrided and two abscess cavities at the caudad portion of the wound with a copious amount of purulent drainage which was drained. Wound cultures 01/02/2019 ESBL Kleb, MDR Ecoli and E raffinosus resistant to penicillin: On meropenam and vanc per ID. Consult Vascular surgery for central line placement, planned for diverting colostomy, family has agreed, Cardiology re-evaluated for surgery, input noted, high CV risk. d/w Dr. Villela, Vascular surgery placed central line placement for Merem, 01/08/19 Further debridement done 01/14/19 Acute on chronic Anemia of AOCD: Continue epoetin, Transfuse Additional 2 units PRBC, total of 6 units, follow cbc- no occult GI bleed noted. GI input noted, will obtain CT ABD AND PELVIS TO EVALUATE FOR RETROPERITONEAL BLEED. Although 150cc Of blood loss documented during debridement still noted drainage, wound dressing done by Surgeon. Will transfuse additional unit and re-evaluate. Acute metabolic encephalopathy due to the above Acute systolic exacerbation of CHF (congestive heart failure): treat via Ultrafiltration during HD Afib with RVR: rate control only and optimize meds per Cardiology ESRD needing dialysis: Nephology is managing, Continue hemo dialysis Insulin dependent diabetes mellitus, A1c is 4.2: insulin was dc Severe malnutrition with FTT: 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, cont oral diet, food safety manager input appreciated, PEG tube placed on 01/02/19 Hypertension: Continue antihypertensives h/o Peripheral neuropathy: Continue gabapentin Elevated troponin, Secondary to end-stage renal disease, chf and afib, Cardiology input appreciated DVT prophylaxis On heparin and GI prophylaxis Poor prognosis discussed with family member Mr Jennifer Mims. History Interval history: Patient was seen and examined. Follow-up on current diagnosis Sacral decubitus ulcer. Clinically Unchanged. On dressing change patient is noted to have overt drainage. Imaging, nursing note, chart, labs and old chart reviewed. S/P DEBRIDEMENT Hospitalist Physical - Physical exam Narrative exam: Gen: severely chronically ill appearing, semi-comatose, mouth open, head flexed, eyes closed, unresponsive, Moans at times HEENT: NCAT, >right eye matted shut, OP dried out with mouth open but good oral care done. Neck: supple, no adenopathy, no thyromegaly, no JVD CVS/Heart: irregular irregular, normal S1S2, pulses present bilaterally Chest/Lungs: poor air entry, Symmetrical chest expansion, good air entry bilate rally GI/Abdomen: soft, peg in place, NTND, good bowel sounds, no guarding or rebound /Bladder: no suprapubic tenderness, no CVA or paraspinal tenderness Extermity/Skin: atrophic contracted legs, dressing soaked, and changed MSK: doesn't follow commands Neuro: doesn't follow commands Psych: unresponsive - Constitutional Vitals: Temp Pulse Resp BP Pulse Ox 98.4 F 76 18 99/60 100 01/16/19 12:42 01/16/19 12:42 01/16/19 12:42 01/16/19 12:42 01/16/19 12:42 General appearance: Present: no acute distress, cachectic, disheveled Results - Labs CBC & Chem 7: 01/16/19 13:10 01/16/19 06:28 Labs: Laboratory Last Values WBC 6.1 K/mm3 (4.5-11.0) 01/16/19 06:28 RBC 3.02 M/mm3 (3.65-5.03) L 01/16/19 06:28 Hgb 7.6 gm/dl (11.8-15.2) L 01/16/19 13:10 Hct 22.8 % (35.5-45.6) L 01/16/19 13:10 MCV 89 fl (84-94) 01/16/19 06:28 MCH 29 pg (28-32) 01/16/19 06:28 MCHC 32 % (32-34) 01/16/19 06:28 RDW 17.4 % (13.2-15.2) H 01/16/19 06:28 Plt Count 173 K/mm3 (140-440) 01/16/19 06:28 Lymph % (Auto) 5.8 % (13.4-35.0) L 01/07/19 00:45 Benzie % (Auto) 6.0 % (0.0-7.3) 01/07/19 00:45 Eos % (Auto) 3.8 % (0.0-4.3) 01/07/19 00:45 Baso % (Auto) 0.2 % (0.0-1.8) 01/07/19 00:45 Lymph # 0.5 K/mm3 (1.2-5.4) L 01/07/19 00:45 Benzie # 0.5 K/mm3 (0.0-0.8) 01/07/19 00:45 Eos # 0.3 K/mm3 (0.0-0.4) 01/07/19 00:45 Baso # 0.0 K/mm3 (0.0-0.1) 01/07/19 00:45 Add Manual Diff Complete 01/03/19 17:16 Total Counted 100 01/03/19 17:16 Seg Neutrophils % 84.2 % (40.0-70.0) H 01/07/19 00:45 Seg Neuts % (Manual) 96.0 % (40.0-70.0) H 01/03/19 17:16 0 % 01/03/19 17:16 2.0 % (13.4-35.0) L 01/03/19 17:16 Reactive Lymphs % (Man) 0 % 01/03/19 17:16 2.0 % (0.0-7.3) 01/03/19 17:16 0 % (0.0-4.3) 01/03/19 17:16 0 % (0.0-1.8) 01/03/19 17:16 0 % 01/03/19 17:16 0 % 01/03/19 17:16 0 % 01/03/19 17:16 0 % 01/03/19 17:16 Nucleated RBC % Not Reportable 01/03/19 17:16 Seg Neutrophils # 6.9 K/mm3 (1.8-7.7) 01/07/19 00:45 Seg Neutrophils # Man 10.8 K/mm3 (1.8-7.7) H 01/03/19 17:16 Band Neutrophils # 0.0 K/mm3 01/03/19 17:16 0.2 K/mm3 (1.2-5.4) L 01/03/19 17:16 Abs React Lymphs (Man) 0.0 K/mm3 01/03/19 17:16 0.2 K/mm3 (0.0-0.8) 01/03/19 17:16 0.0 K/mm3 (0.0-0.4) 01/03/19 17:16 0.0 K/mm3 (0.0-0.1) 01/03/19 17:16 0.0 K/mm3 01/03/19 17:16 0.0 K/mm3 01/03/19 17:16 0.0 K/mm3 01/03/19 17:16 Blast Cells # 0.0 K/mm3 01/03/19 17:16 WBC Morphology Not Reportable 01/03/19 17:16 Hypersegmented Neuts Not Reportable 01/03/19 17:16 Hyposegmented Neuts Not Reportable 01/03/19 17:16 Hypogranular Neuts Not Reportable 01/03/19 17:16 Not Reportable 01/03/19 17:16 Not Reportable 01/03/19 17:16 Not Reportable 01/03/19 17:16 Not Reportable 01/03/19 17:16 Not Reportable 01/03/19 17:16 Not Reportable 01/03/19 17:16 Consistent w auto 01/03/19 17:16 Not Reportable 01/03/19 17:16 Plt Clumps, EDTA Not Reportable 01/03/19 17:16 Not Reportable 01/03/19 17:16 Not Reportable 01/03/19 17:16 Not Reportable 01/03/19 17:16 Plt Morphology Comment Not Reportable 01/03/19 17:16 RBC Morphology Not Reportable 01/03/19 17:16 Dimorphic RBCs Not Reportable 01/03/19 17:16 Not Reportable 01/03/19 17:16 1+ 01/03/19 17:16 Few 01/03/19 17:16 1+ 01/03/19 17:16 Not Reportable 01/03/19 17:16 Not Reportable 01/03/19 17:16 Not Reportable 01/03/19 17:16 Not Reportable 01/03/19 17:16 Not Reportable 01/03/19 17:16 Few 01/03/19 17:16 Not Reportable 01/03/19 17:16 Few 01/03/19 17:16 Not Reportable 01/03/19 17:16 Not Reportable 01/03/19 17:16 Not Reportable 01/03/19 17:16 Not Reportable 01/03/19 17:16 Not Reportable 01/03/19 17:16 Not Reportable 01/03/19 17:16 Not Reportable 01/03/19 17:16 Acanthocytes (Spur) Not Reportable 01/03/19 17:16 Rouleaux Not Reportable 01/03/19 17:16 Not Reportable 01/03/19 17:16 Not Reportable 01/03/19 17:16 Not Reportable 01/03/19 17:16 Not Reportable 01/03/19 17:16 Hem Pathologist Commnt No 01/03/19 17:16 PT 18.0 Sec. (12.2-14.9) H 01/02/19 05:39 INR 1.39 (0.87-1.13) H 01/02/19 05:39 Sodium 137 mmol/L (137-145) 01/16/19 06:28 Potassium 4.8 mmol/L (3.6-5.0) 01/16/19 06:28 Chloride 99.4 mmol/L (98-107) 01/16/19 06:28 Carbon Dioxide 29 mmol/L (22-30) 01/16/19 06:28 13 mmol/L 01/16/19 06:28 BUN 17 mg/dL (9-20) 01/16/19 06:28 1.7 mg/dL (0.8-1.5) H 01/16/19 06:28 Estimated GFR 49 ml/min 01/16/19 06:28 10 % 01/16/19 06:28 Glucose 81 mg/dL (75-100) 01/16/19 06:28 POC Glucose 95 (70-105) 01/16/19 12:49 < 4.2 % (4-6) 12/26/18 17:12 Lactic Acid 1.10 mmol/L (0.7-2.0) 12/27/18 07:04 Calcium 8.6 mg/dL (8.4-10.2) 01/16/19 06:28 Phosphorus 2.90 mg/dL (2.5-4.5) D 01/05/19 04:56 Magnesium 2.00 mg/dL (1.7-2.3) 01/05/19 04:56 0.20 mg/dL (0.1-1.2) 01/07/19 11:16 AST 12 units/L (5-40) 01/07/19 11:16 ALT < 5 units/L (7-56) L 01/07/19 11:16 92 units/L (35-129) 01/07/19 11:16 29 units/L (55-170) L 12/26/18 17:12 0.158 ng/mL (0.00-0.029) H* 12/26/18 17:12 5.7 g/dL (6.3-8.2) L 01/07/19 11:16 2.0 g/dL (3.9-5) L 01/07/19 11:16 0.5 % 01/07/19 11:16 Triglycerides 75 mg/dL (2-149) 12/26/18 17:12 Cholesterol 109 mg/dL (50-199) 12/26/18 17:12 43 mg/dL (50-130) L 12/26/18 17:12 41 mg/dL (40-59) 12/26/18 17:12 2.65 % 12/26/18 17:12 PTH Intact 178.6 pg/mL (15-65) H 01/01/19 17:32 Random Vancomycin 14.3 ug/mL (0-40.0) 01/15/19 10:57 Blood Type O POSITIVE 01/13/19 15:22 Antibody Screen Negative 01/13/19 15:22 Crossmatch See Detail 01/13/19 15:22 Active Medications - Current Medications Current Medications: Generic Name Dose Route Start Last Admin Trade Name Ismael PRN Reason Stop Dose Admin Acetaminophen 650 mg 12/26/18 21:40 01/10/19 18:33 Tylenol PO 650 mg Q4H PRN Administration Pain MILD(1-3)/Fever >100.5/HILL Lipase/Protease/Amylase 1 each 01/03/19 13:07 Mc Barrientos 10,500 Unit FEEDTUBE PRN PRN For Clogged Feeding Tube Aspirin 81 mg 12/27/18 10:00 01/16/19 09:21 Halfprin Ec PO 81 mg DAILY SANCHEZ Administration Epoetin Solitario 20,000 unit 01/05/19 11:03 01/13/19 14:54 Procrit IV 20,000 unit UMA PRN Administration hemodialysis Famotidine 20 mg 12/27/18 10:00 01/16/19 09:21 Pepcid PO 20 mg DAILY SANCHEZ Administration Folic Acid 1 mg 12/27/18 10:00 01/16/19 09:21 Folvite PO 1 mg DAILY SANCHEZ Administration Gabapentin 100 mg 12/26/18 22:00 01/15/19 21:19 Neurontin PO 100 mg QHS SANCHEZ Administration Hydralazine HCl 100 mg 12/26/18 22:00 01/16/19 13:11 Apresoline PO Not Given Q8HR SANCHEZ Meropenem 1,000 mg/ Sodium 100 mls @ 100 mls/hr 01/05/19 11:00 01/16/19 09:22 Chloride IV 02/16/19 10:59 100 mls/hr Q24HR SANCHEZ Administration Vancomycin HCl 1 gm in 250 mls @ 167.007 mls/hr 01/06/19 20:00 01/15/19 20:40 Vancomycin/Ns 1 Gm/250 Ml IV 02/17/19 21:30 167.007 mls/hr TuThSa SANCHEZ Administration Sodium Chloride 100 mls @ 999 mls/hr 01/08/19 08:31 Nacl 0.9% IV UMA PRN Hypotension Dextrose 1,000 mls @ 45 mls/hr 01/14/19 13:00 01/14/19 12:45 D5w IV 45 mls/hr DIRECT SANCHEZ Administration Sodium Chloride 500 mls @ 0 mls/hr 01/16/19 13:52 Nacl 0.9% 500 Ml IV 01/17/19 13:51 ONCE NR As Directed Insulin Human Regular 0 units 01/14/19 00:00 01/16/19 13:12 Humulin R SUB-Q Not Given Q6HR [facility] Protocol Metoprolol Tartrate 5 mg 12/27/18 18:55 12/29/18 05:41 Lopressor IV 5 mg Q5MIN PRN Administration increased heart rate Metoprolol Tartrate 100 mg 12/31/18 22:00 01/16/19 09:21 Lopressor PO 100 mg BID SANCHEZ Administration Ondansetron HCl 4 mg 12/26/18 21:40 01/10/19 12:23 Zofran IV 4 mg Q8H PRN Administration Nausea And Vomiting Oxycodone/Acetaminophen 1 tab 01/05/19 08:30 01/16/19 15:03 Percocet 5/325 PO 1 tab Q6H PRN Administration Pain, Moderate (4-6) Risperidone 0.5 mg 12/26/18 22:00 01/15/19 21:19 Risperdal PO 0.5 mg QHS SANCHEZ Administration Risperidone 1 mg 12/27/18 10:00 01/16/19 09:21 Risperdal PO 1 mg QAM SANCHEZ Administration Sertraline HCl 100 mg 12/27/18 10:00 01/16/19 09:21 Zoloft PO 100 mg QDAY SANCHEZ Administration Simple Syrup 15 ml 01/03/19 13:07 Simple Syrup FEEDTUBE PRN PRN Hypoglycemia Simple Syrup 30 ml 01/03/19 13:07 Simple Syrup FEEDTUBE PRN PRN Hypoglycemia Sodium Bicarbonate 325 mg 01/03/19 13:07 Sodium Bicarbonate FEEDTUBE PRN PRN For Clogged Feeding Tube Sodium Chloride 10 ml 12/26/18 22:00 01/16/19 09:22 Sodium Chloride Flush Syringe 10 Ml IV 10 ml BID SANCHEZ Administration Sodium Chloride 10 ml 12/26/18 21:40 01/03/19 22:02 Sodium Chloride Flush Syringe 10 Ml IV 10 ml PRN PRN Administration LINE FLUSH Sodium Hypochlorite 1 applic 01/01/19 15:31 01/10/19 12:23 Dakin's Half Strength TP 1 applicatio Q12H PRN Administration Wound Care Nutrition/Malnutrition Assess - Dietary Evaluation Nutrition/Malnutrition Findings: Nutrition Notes Start: 12/27/18 17:15 Freq: Status: Active Protocol: Document 01/09/19 17:07 RM (Rec: 01/09/19 17:17 RM [id number]) Nutrition Notes Initial or Follow up Reassessment Current Diagnosis CKD (stage V CKD),Diabetes, Sepsis,Hypertension Other Pertinent Diagnosis Hx CVA,S/P PEG, Sacral wound, FTT, acute encephalopathy Current Diet TF (blank) Labs/Tests Reviewed Pertinent Medications Reviewed Height 5 ft 7 in Weight 84 kg [place] Body Weight (kg) 67.27 BMI 29.0 Subjective/Other Information Consulted for TF recommendation. Renal diet D/C'd. Per nurse pt has Hx of refusing to eat at times. Burn Absent Trauma Absent #2 Nutrition Diagnosis Increased nutrient needs ( specify in comment below) Diagnosis Progress(for reassessment Continues documentation) #1 Nutrition Diagnosis Inadequate oral intake Diagnosis Progress(for reassessment Continues documentation) Is patient on ventilator? No Is Patient Ambulatory and/or Out of Bed No REE-([facility]-confined to bed) 1911.492 Kcal/Kg value to use for calculation 17 Approximate Energy Requirements Using 1428 kcal/Kg Calculation Used for Recommendations [facility] Additional Notes Pro needs 1.2-1.4g/k- 118g/day Fluid needs 1-1.5L/day Nutrition Intervention Nutrition Support: Resume Glucerna 1.2 at 65 ml/ hr. Water flush of 100 mls q 4 hrs . Kcal 1,872 Protein (gm) 94 Carbohydrates (gm) 179 Fat (gm) 94 Fluid (mL) 1,256 Fiber (gm) 25 Goal #1 Meet at least 75% of calorie and protein needs via TF Anticipated Discharge Needs: TF Follow-Up By: 01/16/19 Additional Comments Follow for TF tolerance
[2019-01-16] MEDS ORDERED: SIMPLE SYRUP FEEDTUBE PRN ×2 (17:11)
[2019-01-16] MEDS ORDERED: PANCREAZE DR 10,500 UNIT FEEDTUBE PRN (17:11)
[2019-01-16] MEDS ORDERED: SODIUM BICARBONATE FEEDTUBE PRN (17:11)
[2019-01-16] MEDS ORDERED: MORPHINE IV ONE (20:05)
[2019-01-16] MEDS ORDERED: DDAVP IV ONE (20:08)
[2019-01-16] MEDS ORDERED: DDAVP SUB-Q ONE (20:09)
[2019-01-16] MEDS ORDERED: SILVER NITRATE TP ONE (20:10)
[2019-01-16] MEDS: SODIUM CHLORIDE FLUSH SYRINGE 10 ML IV PRN (21:00)
--- NOTE | 2019-01-16 21:39 | Event Note ---
Date: 01/16/19 Called by nursing regarding patient's dressing being bloody at the inferior portion of the wound near the perineum. I asked her to reinforce it. VSS. Upon examining the patient, the entire dressing was removed. The majority of the dressing was clean and no bleeding seen from the wound edges of wound bed. There is a small portion of the wound just inferior to the rectum with tunneling. This area was oozing blood. Nonpulsatile. There were blood clots on the dressing removed from this area. The tunnel packed with quickclot dressing and quickclot layed onto wound bed in this area and packed into wound. Surgicel placed onto adjacent wound bed. The remainder of the wound treated with enrique powder. Pressure held at site of quickclot dressing. No additional bleeding seen. Wound packed with dry gauze, covered with fluff gauze, abd pads, and secured with sacral foam dressings. Patient placed supine. He tolerated the dressing change well. I saw patient 20 minutes after dressing change and the dressing remains dry without bleeding. Will continue to monitor. D/w RN.
[2019-01-16] MEDS: NEURONTIN PO SCH (23:28)
[2019-01-17] MEDS: HumuLIN R SUB-Q SCH ×4 (00:15→18:00)
[2019-01-17] MEDS: LOPRESSOR PO SCH ×3 (03:06→21:28)
[2019-01-17] MEDS: APRESOLINE PO SCH ×3 (05:36→21:28)
[2019-01-17 06:07] LABS: Hemoglobin 6.5 gm/dl (11.8-15.2); Mean Corpuscular HGB Conc 33 % (32-34); Mean Corpuscular Volume 90 fl (84-94); Platelet Count 151 K/mm3 (140-440); Red Blood Count 2.19 M/mm3 (3.65-5.03); Red Cell Distribution Width 17.9 % (13.2-15.2)
[2019-01-17 06:24] LABS: Hematocrit 19.7 % (35.5-45.6)
[2019-01-17 06:34] LABS: Calcium 8.5 mg/dL (8.4-10.2)
[2019-01-17] MEDS ORDERED: NACL 0.9% 500 ML 500 ML IV NR (09:27)
--- NOTE | 2019-01-17 09:29 | Progress Note ---
Assessment and Plan Assessment and plan: Patient is a 63-year-old -[place]wegian man from [facility] with a plethora of co-morbidities including blindness, CVA, CHF, PPM/ICD, loop recorder since 2013 that is MRI compatible, IDDM type 2, sepsis left foot ulcer, afib, ESRD with complications on HD TTS, hypertension, AOCD and GERD who presented to [facility] with altered sensorium and decreased responsiveness. Decreased responsive and not eating at all for 2 days. Patient has failure to thrive, altered mentation and weight loss of 20 pounds since 12/08/2018. Severe Sepsis due to Necrotizing Unstagable sacral decubitus ulcer s/p OR on 01/01/2019 for open excisional debridement of necrotic and infected sacral wound noted a large amount of necrotic tissue debrided and two abscess cavities at the caudad portion of the wound with a copious amount of purulent drainage which was drained. Wound cultures 01/02/2019 ESBL Kleb, MDR Ecoli and E raffinosus resistant to penicillin: On meropenam and vanc per ID. Consult Vascular surgery for central line placement, planned for diverting colostomy, family has agreed, Cardiology re-evaluated for surgery, input noted, high CV risk. d/w Dr. Villela, Vascular surgery placed central line placement for Merem, 01/08/19 Further debridement done 01/14/19 Acute on chronic Anemia of AOCD: Continue epoetin, Transfuse Additional 2 units PRBC, total of 6 units, follow cbc- no occult GI bleed noted. GI input noted, will obtain CT ABD AND PELVIS TO EVALUATE FOR RETROPERITONEAL BLEED. Although 150cc Of blood loss documented during debridement still noted drainage, wound dressing done by Surgeon. Will transfuse additional unit and re-evaluate. DDVAP ORDERED YESTERDAY REPEAT H/H TODAY DOWN TO 6.5 NO FURTHER BLEEDING REPORTED AT WOUND SITE WILL GIVE ADDITIONAL ONE UNIT FOR A TOTAL OF 2 UNITS TODAY AND GRAND TOTAL OF 8 UNITS CHECK H/H IN AM Acute metabolic encephalopathy due to the above Acute systolic exacerbation of CHF (congestive heart failure): treat via Ultrafiltration during HD Afib with RVR: rate control only and optimize meds per Cardiology ESRD needing dialysis: Nephology is managing, Continue hemo dialysis Insulin dependent diabetes mellitus, A1c is 4.2: insulin was dc Severe malnutrition with FTT: 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, cont oral diet, residential treatment specialist input appreciated, PEG tube placed on 01/02/19 Hypertension: Continue antihypertensives h/o Peripheral neuropathy: Continue gabapentin Elevated troponin, Secondary to end-stage renal disease, chf and afib, Cardiology input appreciated DVT prophylaxis On heparin and GI prophylaxis Poor prognosis discussed with family member Mr Jennifer Mims. History Interval history: Patient was seen and examined. Follow-up on current diagnosis Sacral decubitus ulcer.TODAY PATIENT NOTED CALLING OUT FOR PAIN MEDS On dressing change patient is noted to have overt drainage. Imaging, nursing note, chart, labs and old chart reviewed. S/P DEBRIDEMENT Hospitalist Physical - Physical exam Narrative exam: Gen: severely chronically ill appearing, semi-comatose, mouth open, head flexed, eyes closed, unresponsive, Moans at times HEENT: NCAT, >right eye matted shut, OP dried out with mouth open but good oral care done. Neck: supple, no adenopathy, no thyromegaly, no JVD CVS/Heart: irregular irregular, normal S1S2, pulses present bilaterally Chest/Lungs: poor air entry, Symmetrical chest expansion, good air entry bilaterally GI/Abdomen: soft, peg in place, NTND, good bowel sounds, no guarding or rebound /Bladder: no suprapubic tenderness, no CVA or paraspinal tenderness Extermity/Skin: atrophic contracted legs, dressing soaked, and changed MSK: doesn't follow commands Neuro: doesn't follow commands Psych: unresponsive - Constitutional Vitals: Temp Pulse Resp BP Pulse Ox 97.9 F 100 H 20 120/70 100 01/17/19 04:56 01/17/19 04:56 01/17/19 04:56 01/17/19 04:56 01/17/19 04:56 General appearance: Present: no acute distress, cachectic, disheveled Results - Labs CBC & Chem 7: 01/17/19 05:34 01/17/19 05:34 Labs: Laboratory Last Values WBC 6.9 K/mm3 (4.5-11.0) 01/17/19 05:34 RBC 2.19 M/mm3 (3.65-5.03) L 01/17/19 05:34 Hgb 6.5 gm/dl (11.8-15.2) L 01/17/19 05:34 Hct 19.7 % (35.5-45.6) L* 01/17/19 05:34 MCV 90 fl (84-94) 01/17/19 05:34 MCH 30 pg (28-32) 01/17/19 05:34 MCHC 33 % (32-34) 01/17/19 05:34 RDW 17.9 % (13.2-15.2) H 01/17/19 05:34 Plt Count 151 K/mm3 (140-440) 01/17/19 05:34 Lymph % (Auto) 5.8 % (13.4-35.0) L 01/07/19 00:45 [place] % (Auto) 6.0 % (0.0-7.3) 01/07/19 00:45 Eos % (Auto) 3.8 % (0.0-4.3) 01/07/19 00:45 Baso % (Auto) 0.2 % (0.0-1.8) 01/07/19 00:45 Lymph # 0.5 K/mm3 (1.2-5.4) L 01/07/19 00:45 [place] # 0.5 K/mm3 (0.0-0.8) 01/07/19 00:45 Eos # 0.3 K/mm3 (0.0-0.4) 01/07/19 00:45 Baso # 0.0 K/mm3 (0.0-0.1) 01/07/19 00:45 Add Manual Diff Complete 01/03/19 17:16 Total Counted 100 01/03/19 17:16 Seg Neutrophils % 84.2 % (40.0-70.0) H 01/07/19 00:45 Seg Neuts % (Manual) 96.0 % (40.0-70.0) H 01/03/19 17:16 0 % 01/03/19 17:16 2.0 % (13.4-35.0) L 01/03/19 17:16 Reactive Lymphs % (Man) 0 % 01/03/19 17:16 2.0 % (0.0-7.3) 01/03/19 17:16 0 % (0.0-4.3) 01/03/19 17:16 0 % (0.0-1.8) 01/03/19 17:16 0 % 01/03/19 17:16 0 % 01/03/19 17:16 0 % 01/03/19 17:16 0 % 01/03/19 17:16 Nucleated RBC % Not Reportable 01/03/19 17:16 Seg Neutrophils # 6.9 K/mm3 (1.8-7.7) 01/07/19 00:45 Seg Neutrophils # Man 10.8 K/mm3 (1.8-7.7) H 01/03/19 17:16 Band Neutrophils # 0.0 K/mm3 01/03/19 17:16 0.2 K/mm3 (1.2-5.4) L 01/03/19 17:16 Abs React Lymphs (Man) 0.0 K/mm3 01/03/19 17:16 0.2 K/mm3 (0.0-0.8) 01/03/19 17:16 0.0 K/mm3 (0.0-0.4) 01/03/19 17:16 0.0 K/mm3 (0.0-0.1) 01/03/19 17:16 0.0 K/mm3 01/03/19 17:16 0.0 K/mm3 01/03/19 17:16 0.0 K/mm3 01/03/19 17:16 Blast Cells # 0.0 K/mm3 01/03/19 17:16 WBC Morphology Not Reportable 01/03/19 17:16 Hypersegmented Neuts Not Reportable 01/03/19 17:16 Hyposegmented Neuts Not Reportable 01/03/19 17:16 Hypogranular Neuts Not Reportable 01/03/19 17:16 Not Reportable 01/03/19 17:16 Not Reportable 01/03/19 17:16 Not Reportable 01/03/19 17:16 Not Reportable 01/03/19 17:16 Not Reportable 01/03/19 17:16 Not Reportable 01/03/19 17:16 Consistent w auto 01/03/19 17:16 Not Reportable 01/03/19 17:16 Plt Clumps, EDTA Not Reportable 01/03/19 17:16 Not Reportable 01/03/19 17:16 Not Reportable 01/03/19 17:16 Not Reportable 01/03/19 17:16 Plt Morphology Comment Not Reportable 01/03/19 17:16 RBC Morphology Not Reportable 01/03/19 17:16 Dimorphic RBCs Not Reportable 01/03/19 17:16 Not Reportable 01/03/19 17:16 1+ 01/03/19 17:16 Few 01/03/19 17:16 1+ 01/03/19 17:16 Not Reportable 01/03/19 17:16 Not Reportable 01/03/19 17:16 Not Reportable 01/03/19 17:16 Not Reportable 01/03/19 17:16 Not Reportable 01/03/19 17:16 Few 01/03/19 17:16 Not Reportable 01/03/19 17:16 Few 01/03/19 17:16 Not Reportable 01/03/19 17:16 Not Reportable 01/03/19 17:16 Not Reportable 01/03/19 17:16 Not Reportable 01/03/19 17:16 Not Reportable 01/03/19 17:16 Not Reportable 01/03/19 17:16 Not Reportable 01/03/19 17:16 Acanthocytes (Spur) Not Reportable 01/03/19 17:16 Rouleaux Not Reportable 01/03/19 17:16 Not Reportable 01/03/19 17:16 Not Reportable 01/03/19 17:16 Not Reportable 01/03/19 17:16 Not Reportable 01/03/19 17:16 Hem Pathologist Commnt No 01/03/19 17:16 PT 18.0 Sec. (12.2-14.9) H 01/02/19 05:39 INR 1.39 (0.87-1.13) H 01/02/19 05:39 Sodium 134 mmol/L (137-145) L 01/17/19 05:34 Potassium 5.5 mmol/L (3.6-5.0) H 01/17/19 05:34 Chloride 98.3 mmol/L (98-107) 01/17/19 05:34 Carbon Dioxide 30 mmol/L (22-30) 01/17/19 05:34 11 mmol/L 01/17/19 05:34 BUN 26 mg/dL (9-20) H 01/17/19 05:34 2.4 mg/dL (0.8-1.5) H 01/17/19 05:34 Estimated GFR 33 ml/min 01/17/19 05:34 11 % 01/17/19 05:34 Glucose 106 mg/dL (75-100) H 01/17/19 05:34 POC Glucose 105 (70-105) 01/17/19 06:18 < 4.2 % (4-6) 12/26/18 17:12 Lactic Acid 1.10 mmol/L (0.7-2.0) 12/27/18 07:04 Calcium 8.5 mg/dL (8.4-10.2) 01/17/19 05:34 Phosphorus 2.90 mg/dL (2.5-4.5) D 01/05/19 04:56 Magnesium 2.00 mg/dL (1.7-2.3) 01/05/19 04:56 0.20 mg/dL (0.1-1.2) 01/07/19 11:16 AST 12 units/L (5-40) 01/07/19 11:16 ALT < 5 units/L (7-56) L 01/07/19 11:16 92 units/L (35-129) 01/07/19 11:16 29 units/L (55-170) L 12/26/18 17:12 0.158 ng/mL (0.00-0.029) H* 12/26/18 17:12 5.7 g/dL (6.3-8.2) L 01/07/19 11:16 2.0 g/dL (3.9-5) L 01/07/19 11:16 0.5 % 01/07/19 11:16 Triglycerides 75 mg/dL (2-149) 12/26/18 17:12 Cholesterol 109 mg/dL (50-199) 12/26/18 17:12 43 mg/dL (50-130) L 12/26/18 17:12 41 mg/dL (40-59) 12/26/18 17:12 2.65 % 12/26/18 17:12 PTH Intact 178.6 pg/mL (15-65) H 01/01/19 17:32 Random Vancomycin 14.3 ug/mL (0-40.0) 01/15/19 10:57 Blood Type O POSITIVE 06/28/19 15:06 Antibody Screen Negative 01/16/19 15:06 Crossmatch See Detail 01/16/19 15:06 Active Medications - Current Medications Current Medications: Generic Name Dose Route Start Last Admin Trade Name Freq PRN Reason Stop Dose Admin Acetaminophen 650 mg 12/26/18 21:40 01/10/19 18:33 Tylenol PO 650 mg Q4H PRN Administration Pain MILD(1-3)/Fever >100.5/HILL Lipase/Protease/Amylase 1 each 01/16/19 17:11 Pancreaze 10,500 Unit FEEDTUBE PRN PRN For Clogged Feeding Tube Aspirin 81 mg 12/27/18 10:00 01/16/19 09:21 Halfprin Ec PO 81 mg DAILY SANCHEZ Administration Epoetin Solitario 20,000 unit 01/05/19 11:03 01/13/19 14:54 Procrit IV 20,000 unit UMA PRN Administration hemodialysis Famotidine 20 mg 12/27/18 10:00 01/16/19 09:21 Pepcid PO 20 mg DAILY SANCHEZ Administration Folic Acid 1 mg 12/27/18 10:00 01/16/19 09:21 Folvite PO 1 mg DAILY SANCHEZ Administration Gabapentin 100 mg 12/26/18 22:00 01/16/19 23:28 Neurontin PO 100 mg QHS SANCHEZ Administration Hydralazine HCl 100 mg 12/26/18 22:00 01/17/19 05:36 Apresoline PO 100 mg Q8HR SANCHEZ Administration Meropenem 1,000 mg/ Sodium 100 mls @ 100 mls/hr 01/05/19 11:00 01/16/19 09:22 Chloride IV 02/16/19 10:59 100 mls/hr Q24HR SACNHEZ Administration Vancomycin HCl 1 gm in 250 mls @ 167.007 mls/hr 01/06/19 20:00 01/15/19 20:40 Vancomycin/Ns 1 Gm/250 Ml IV 02/17/19 21:30 167.007 mls/hr TuThSa SANCHEZ Administration Sodium Chloride 100 mls @ 999 mls/hr 01/08/19 08:31 Nacl 0.9% IV UMA PRN Hypotension Dextrose 1,000 mls @ 45 mls/hr 01/14/19 13:00 01/14/19 12:45 D5w IV 45 mls/hr DIRECT SANCHEZ Administration Sodium Chloride 500 mls @ 0 mls/hr 01/16/19 13:52 Nacl 0.9% 500 Ml IV 01/17/19 13:51 ONCE NR As Directed Sodium Chloride 500 mls @ 0 mls/hr 01/17/19 09:27 Nacl 0.9% 500 Ml IV 01/17/19 09:28 ONCE ONE As Directed Insulin Human Regular 0 units 01/14/19 00:00 01/17/19 06:13 Humulin R SUB-Q Not Given Q6HR [facility] Protocol Metoprolol Tartrate 5 mg 12/27/18 18:55 12/29/18 05:41 Lopressor IV 5 mg Q5MIN PRN Administration increased heart rate Metoprolol Tartrate 100 mg 12/31/18 22:00 01/17/19 03:06 Lopressor PO Not Given BID SANCHEZ Ondansetron HCl 4 mg 12/26/18 21:40 01/10/19 12:23 Zofran IV 4 mg Q8H PRN Administration Nausea And Vomiting Oxycodone/Acetaminophen 1 tab 01/05/19 08:30 01/16/19 23:30 Percocet 5/325 PO 1 tab Q6H PRN Administration Pain, Moderate (4-6) Risperidone 0.5 mg 12/26/18 22:00 01/16/19 23:28 Risperdal PO 0.5 mg QHS SANCHEZ Administration Risperidone 1 mg 12/27/18 10:00 01/16/19 09:21 Risperdal PO 1 mg QAM SANCHEZ Administration Sertraline HCl 100 mg 12/27/18 10:00 01/16/19 09:21 Zoloft PO 100 mg QDAY SANCHEZ Administration Simple Syrup 15 ml 01/16/19 17:11 Simple Syrup FEEDTUBE PRN PRN Hypoglycemia Simple Syrup 30 ml 01/16/19 17:11 Simple Syrup FEEDTUBE PRN PRN Hypoglycemia Sodium Bicarbonate 325 mg 01/16/19 17:11 Sodium Bicarbonate FEEDTUBE PRN PRN For Clogged Feeding Tube Sodium Chloride 10 ml 12/26/18 22:00 01/16/19 22:00 Sodium Chloride Flush Syringe 10 Ml IV 10 ml BID SANCHEZ Administration Sodium Chloride 10 ml 12/26/18 21:40 01/16/19 21:00 Sodium Chloride Flush Syringe 10 Ml IV 10 ml PRN PRN Administration LINE FLUSH Sodium Hypochlorite 1 applic 01/01/19 15:31 01/10/19 12:23 Dakin's Half Strength TP 1 applicatio Q12H PRN Administration Wound Care Nutrition/Malnutrition Assess - Dietary Evaluation Nutrition/Malnutrition Findings: Nutrition Notes Start: 12/27/18 17:15 Freq: Status: Active Protocol: Document 01/16/19 17:08 RM (Rec: 01/16/19 17:11 RM [id number]) Nutrition Notes Initial or Follow up Reassessment Current Diagnosis CKD (stage V CKD),Diabetes, Sepsis,Hypertension Other Pertinent Diagnosis Hx CVA,S/P PEG, Sacral wound, FTT, acute encephalopathy Current Diet No diet ordered Labs/Tests Reviewed Pertinent Medications Reviewed Height 5 ft 7 in Weight 85.4 kg [place] Body Weight (kg) 67.27 BMI 29.5 Subjective/Other Information Observed Glucerna 1.2 infusing at goal rate. Percent of energy/protein needs met: 97%/100% Burn Absent Trauma Absent #2 Nutrition Diagnosis Increased nutrient needs ( specify in comment below) Diagnosis Progress(for reassessment Continues documentation) #1 Nutrition Diagnosis Inadequate oral intake Diagnosis Progress(for reassessment Continues documentation) Is patient on ventilator? No Is Patient Ambulatory and/or Out of Bed No REE-([facility]-confined to bed) [phone] Calculation Used for Recommendations [facility] Additional Notes Pro needs 1.2-1.4g/k- 118g/day Fluid needs 1-1.5L/day Nutrition Intervention Nutrition Support: Glucerna 1.2 at 65 ml/hr. Water flush of 100 mls q 4 hrs . Kcal 1,872 Protein (gm) 94 Carbohydrates (gm) 179 Fat (gm) 94 Fluid (mL) 1,256 Fiber (gm) 25 Goal #1 Continue to meet at least 75% of calorie and protein needs via TF Anticipated Discharge Needs: Glucerna 1.2 Follow-Up By: 01/23/19 Additional Comments Follow for TF tolerance
--- NOTE | 2019-01-17 09:45 | Progress Note ---
Assessment and Plan Impression * End-stage renal disease on maintenance hemodialysis * Altered mental status * s/p diverting colostomy * Sacral decubitus * Hypokalemia * Failure to thrive * Hypophosphatemia * Malnutrition * Anemia secondary to ESRD * Hypomagnesemia Recommendations * Continue dialysis on TTS schedule for now * Use higher K bath for dialysis * prn PRBCs * Replace potassium, phosphorus and magnesium * Antibiotic therapy and local wound care as per primary team/surgery * Avoid nephrotoxins * Epogen with dialysis * Adjust diet and meds were ESRD state Subjective Date of service: 01/17/19 Principal diagnosis: drop in H/H Interval history: resting in bed Objective - Exam Narrative Exam: General appearance: chronically ill, frail EENT: PERRL, mucous membranes moist Neck: no JVD, no thyromegaly, no carotid bruit, supple, other (IJ PermCath in place) Respiratory: Present: Clear to Ascultation Cardiology: regular, normal heart rate, S1S2, no murmurs Gastrointestinal: normal, normoactive bowel sounds, other (PEG tube in place) - Vital Signs Vital signs: Vital Signs - 12hr 01/16/19 01/16/19 01/16/19 22:00 22:43 23:30 Temperature 99.2 F Pulse Rate 107 H Pulse Rate [ 106 H Apical] Respiratory 18 18 18 Rate Blood Pressure 110/66 O2 Sat by Pulse 100 100 Oximetry 01/17/19 01/17/19 01/17/19 00:30 03:06 04:56 Temperature 97.9 F Pulse Rate 106 H 100 H Pulse Rate [ Apical] Respiratory 18 20 Rate Blood Pressure 110/60 120/70 O2 Sat by Pulse 100 Oximetry - Lab 01/17/19 05:34 01/17/19 05:34 Most recent lab results Calcium 8.5 mg/dL (8.4-10.2) 01/17/19 05:34 Phosphorus 2.90 mg/dL (2.5-4.5) D 01/05/19 04:56 Magnesium 2.00 mg/dL (1.7-2.3) 01/05/19 04:56 Medications & Allergies - Medications Allergies/Adverse Reactions: Allergies haloperidol [From Haldol] Adverse Reaction (Verified 03/13/18 12:10) Unknown haloperidol lactate [From Haldol] Adverse Reaction (Verified 03/13/18 12:10) Unknown Home Medications: Home Medications Medication Instructions Recorded Confirmed Last Taken Type risperiDONE [RisperDAL] 1 mg PO QAM 03/13/18 12/27/18 Unknown History Sertraline [Zoloft] 100 mg PO QDAY 08/26/18 12/27/18 Unknown History risperiDONE [RisperDAL] 0.5 mg PO HS 08/26/18 12/27/18 Unknown History Polyethylene Glycol 3350 [Miralax 17 gm PO QDAY #30 packet 11/05/18 12/27/18 Unknown Rx 3350] Aspirin EC 81 mg PO DAILY #30 11/19/18 12/27/18 Unknown Rx Docusate Sodium [Colace CAP] 100 mg PO BID #60 11/19/18 12/27/18 Unknown Rx Folic Acid [Folvite] 1 mg PO DAILY #30 tab 11/19/18 12/27/18 Unknown Rx Famotidine [Pepcid] 20 mg PO DAILY tablet 12/08/18 12/27/18 Unknown Rx Gabapentin [Neurontin] 100 mg PO QHS capsule 12/08/18 12/27/18 Unknown Rx Metoprolol [Lopressor TAB] 50 mg PO BID 30 Days tablet 12/08/18 12/27/18 Unknown Rx Sevelamer Carbonate [Renvela] 800 mg PO TIDWM tablet 12/08/18 12/27/18 Unknown Rx hydrALAZINE [Apresoline TAB] 100 mg PO Q8HR #120 tablet 12/08/18 12/27/18 Unknown Rx Acetaminophen [Acetaminophen TAB] 650 mg PO Q12H PRN 12/15/18 12/27/18 Unknown History Amino Acids/Protein Hydrolys 30 ml PO BID 12/15/18 12/27/18 Unknown History [Pro-Stat Sugar Free Liquid] Glucagon,Human Recombinant 1 mg IJ Q15MIN PRN 12/15/18 12/27/18 Unknown History [Glucagon Emergency Kit] Insulin Aspart [NovoLOG 100 See Protocol SQ QWEEK 12/15/18 12/27/18 Unknown History UNITS/ML VIAL] Epoetin Solitario 10,000 Unit [Procrit] 10,000 unit IV UMA PRN vial 12/18/18 12/27/18 Unknown Rx Lispro Insulin [HumaLOG] 0 unit SUB-Q ACHS units 12/18/18 12/27/18 Unknown Rx risperiDONE [RisperDAL] 0.5 mg PO QHS tablet 12/18/18 12/27/18 Unknown Rx Meropenem [Merrem] 1,000 mg IV Q24HR vial 01/16/19 Unknown Rx Active Medications: Generic Name Dose Route Start Last Admin Trade Name Freq PRN Reason Stop Dose Admin Acetaminophen 650 mg 12/26/18 21:40 01/10/19 18:33 Tylenol PO 650 mg Q4H PRN Administration Pain MILD(1-3)/Fever >100.5/HILL Lipase/Protease/Amylase 1 each 01/16/19 17:11 Pancreaze 10,500 Unit FEEDTUBE PRN PRN For Clogged Feeding Tube Aspirin 81 mg 12/27/18 10:00 01/16/19 09:21 Halfprin Ec PO 81 mg DAILY SANCHEZ Administration Epoetin Solitario 20,000 unit 01/05/19 11:03 01/13/19 14:54 Procrit IV 20,000 unit UMA PRN Administration hemodialysis Famotidine 20 mg 12/27/18 10:00 01/16/19 09:21 Pepcid PO 20 mg DAILY SANCHEZ Administration Folic Acid 1 mg 12/27/18 10:00 01/16/19 09:21 Folvite PO 1 mg DAILY SANCHEZ Administration Gabapentin 100 mg 12/26/18 22:00 01/16/19 23:28 Neurontin PO 100 mg QHS SANCHEZ Administration Hydralazine HCl 100 mg 12/26/18 22:00 01/17/19 05:36 Apresoline PO 100 mg Q8HR SANCHEZ Administration Meropenem 1,000 mg/ Sodium 100 mls @ 100 mls/hr 01/05/19 11:00 01/16/19 09:22 Chloride IV 02/16/19 10:59 100 mls/hr Q24HR SANCHEZ Administration Vancomycin HCl 1 gm in 250 mls @ 167.007 mls/hr 01/06/19 20:00 01/15/19 20:40 Vancomycin/Ns 1 Gm/250 Ml IV 02/17/19 21:30 167.007 mls/hr TuThSa SANCHEZ Administration Sodium Chloride 100 mls @ 999 mls/hr 01/08/19 08:31 Nacl 0.9% IV UMA PRN Hypotension Dextrose 1,000 mls @ 45 mls/hr 01/14/19 13:00 01/14/19 12:45 D5w IV 45 mls/hr DIRECT SANCHEZ Administration Sodium Chloride 500 mls @ 0 mls/hr 01/16/19 13:52 Nacl 0.9% 500 Ml IV 01/17/19 13:51 ONCE NR As Directed Sodium Chloride 500 mls @ 0 mls/hr 01/17/19 09:27 Nacl 0.9% 500 Ml IV 01/17/19 12:00 ONCE NR As Directed Insulin Human Regular 0 units 01/14/19 00:00 01/17/19 06:13 Humulin R SUB-Q Not Given Q6HR [facility] Protocol Metoprolol Tartrate 5 mg 12/27/18 18:55 12/29/18 05:41 Lopressor IV 5 mg Q5MIN PRN Administration increased heart rate Metoprolol Tartrate 100 mg 12/31/18 22:00 01/17/19 03:06 Lopressor PO Not Given BID SANCHEZ Ondansetron HCl 4 mg 12/26/18 21:40 01/10/19 12:23 Zofran IV 4 mg Q8H PRN Administration Nausea And Vomiting Oxycodone/Acetaminophen 1 tab 01/05/19 08:30 01/16/19 23:30 Percocet 5/325 PO 1 tab Q6H PRN Administration Pain, Moderate (4-6) Risperidone 0.5 mg 12/26/18 22:00 01/16/19 23:28 Risperdal PO 0.5 mg QHS SANCHEZ Administration Risperidone 1 mg 12/27/18 10:00 01/16/19 09:21 Risperdal PO 1 mg QAM SANCHEZ Administration Sertraline HCl 100 mg 12/27/18 10:00 01/16/19 09:21 Zoloft PO 100 mg QDAY SANCHEZ Administration Simple Syrup 15 ml 01/16/19 17:11 Simple Syrup FEEDTUBE PRN PRN Hypoglycemia Simple Syrup 30 ml 01/16/19 17:11 Simple Syrup FEEDTUBE PRN PRN Hypoglycemia Sodium Bicarbonate 325 mg 01/16/19 17:11 Sodium Bicarbonate FEEDTUBE PRN PRN For Clogged Feeding Tube Sodium Chloride 10 ml 12/26/18 22:00 01/16/19 22:00 Sodium Chloride Flush Syringe 10 Ml IV 10 ml BID SANCHEZ Administration Sodium Chloride 10 ml 12/26/18 21:40 01/16/19 21:00 Sodium Chloride Flush Syringe 10 Ml IV 10 ml PRN PRN Administration LINE FLUSH Sodium Hypochlorite 1 applic 01/01/19 15:31 01/10/19 12:23 Dakin's Half Strength TP 1 applicatio Q12H PRN Administration Wound Care
--- NOTE | 2019-01-17 12:20 | Progress Note ---
Assessment and Plan 63 yo M s/p debridement of sacral wound, POD 3 and diverting end colostomy on 01/12/19 1. infected stage 4 sacral wound 2. malnutrition 3. failure to thrive s/p PEG tube 4. bedbound 5. AMS 6. ESRD on HD 7. hyponatremia 8. anemia - source likely multifactorial, acute blood loss from sacral wound CT scan A/P - ascites, ?hemorrhage Plan: 1. Leave dressing in place - DO NOT CHANGE DRESSING. D/W nursing 2. c/w TF via PEG 3. MRI pelvis could not be done due to loop recorder 4. c/w IV abx. Would treat as clinical osteomyelitis 5. continue offloading and frequent turning of patient 6. monitor nutrition labs weekly 7. Repeat Hb down to 6.7 FROM 7.6 from 8.7. Being transfused today on HD. Likely from sacral wound. Will follow up in am to change sacral dressing and to ensure continued hemostasis along with Hb D/W Dr. Lopez Subjective Date of service: 01/17/19 Narrative: Pt seen and examined. Had HD. c/o pain in the sacral area. No f/c. Per nursing notes, no issues with bleeding from wound Objective Vital Signs - 12hr 01/17/19 01/17/19 01/17/19 00:30 03:06 04:56 Temperature 97.9 F Pulse Rate 106 H 100 H Respiratory 18 20 Rate Blood Pressure 110/60 120/70 O2 Sat by Pulse 100 Oximetry 01/17/19 01/17/19 01/17/19 09:52 10:00 10:15 Temperature 97.8 F Pulse Rate 119 H 109 H 103 H Respiratory 18 Rate Blood Pressure 137/64 140/63 127/71 O2 Sat by Pulse Oximetry 01/17/19 01/17/19 01/17/19 10:30 10:45 11:00 Temperature Pulse Rate 99 H 117 H 110 H Respiratory Rate Blood Pressure 106/57 112/66 121/71 O2 Sat by Pulse Oximetry 01/17/19 11:15 Temperature Pulse Rate 108 H Respiratory Rate Blood Pressure 120/72 O2 Sat by Pulse Oximetry - General physical appearance Narrative Exam: Gen: Awake and alert. NAD CV: s1, S2+ resp; even and unlabored Abd: soft, NT, ND. ostomy with stool and air in bag. PEG with TF running Ext: edema, contracted Sacrum: sacral/perineum dressing c/d/i. No evidence of bleeding - Labs 01/17/19 05:34 01/17/19 05:34 Diabetes panel 01/17/19 Range/Units 05:34 Sodium 134 L (137-145) mmol/L Potassium 5.5 H (3.6-5.0) mmol/L Chloride 98.3 (98-107) mmol/L Carbon Dioxide 30 (22-30) mmol/L BUN 26 H (9-20) mg/dL Creatinine 2.4 H (0.8-1.5) mg/dL Glucose 106 H (75-100) mg/dL Calcium 8.5 (8.4-10.2) mg/dL Calcium panel 01/17/19 Range/Units 05:34 Calcium 8.5 (8.4-10.2) mg/dL Pituitary panel 01/17/19 Range/Units 05:34 Sodium 134 L (137-145) mmol/L Potassium 5.5 H (3.6-5.0) mmol/L Chloride 98.3 (98-107) mmol/L Carbon Dioxide 30 (22-30) mmol/L BUN 26 H (9-20) mg/dL Creatinine 2.4 H (0.8-1.5) mg/dL Glucose 106 H (75-100) mg/dL Calcium 8.5 (8.4-10.2) mg/dL Adrenal panel 01/17/19 Range/Units 05:34 Sodium 134 L (137-145) mmol/L Potassium 5.5 H (3.6-5.0) mmol/L Chloride 98.3 (98-107) mmol/L Carbon Dioxide 30 (22-30) mmol/L BUN 26 H (9-20) mg/dL Creatinine 2.4 H (0.8-1.5) mg/dL Glucose 106 H (75-100) mg/dL Calcium 8.5 (8.4-10.2) mg/dL
[2019-01-17] MEDS: PROCRIT IV PRN (12:25)
[2019-01-17] MEDS: HALFPRIN EC PO SCH (15:26)
[2019-01-17] MEDS: FOLVITE PO SCH (15:26)
[2019-01-17] MEDS: PERCOCET 5/325 PO PRN ×2 (15:27→21:29)
[2019-01-17] MEDS: PEPCID PO SCH (15:27)
[2019-01-17] MEDS: RisperDAL PO SCH ×2 (15:27→21:28)
[2019-01-17] MEDS: ZOLOFT PO SCH (15:27)
[2019-01-17] MEDS: MERREM 1,000 MG in NACL 0.9% 100 ML IV SCH (15:28)
[2019-01-17] MEDS: SODIUM CHLORIDE FLUSH SYRINGE 10 ML IV SCH (15:28)
--- NOTE | 2019-01-17 15:39 | Operative Report ---
PREOPERATIVE DIAGNOSIS: Infected stage 4 sacral wound. POSTOPERATIVE DIAGNOSIS: Infected stage 4 sacral wound. FINDINGS: 40 cm x 20 cm x 5 cm stage 4 sacral wound with necrotic tissue and abscess cavities. PROCEDURE: Excisional debridement of infected sacral wound to bone. ANESTHESIA: MAC, local. SURGEON: Ruth Isaacs DO ESTIMATED BLOOD LOSS: 150 mL. PATHOLOGY: None. CONDITION AND DISPOSITION: The patient is stable to PACU. Wound measurements were 40 cm x 20 cm x 5 cm. HISTORY OF PRESENT ILLNESS AND INDICATIONS: The patient is a 63-year-old male who is bedbound, who presented to the hospital with poor appetite. He was found to have a very large infected sacral wound with necrotic tissue and purulent drainage. The patient underwent limited bedside debridement and the debridement was not continued due to the extensive nature of the wound. The patient also had malnutrition and the wound was very close to his rectum and therefore he also underwent PEG tube placement as well as diverting colostomy. Once a diverting colostomy was performed, the patient was consented for an extensive debridement of sacral wound. This was discussed with his next of kin and consent was obtained. PROCEDURE IN DETAIL: The patient was identified in the preoperative area, taken back to the operating room and placed on the operating table in lateral decubitus position using a beanbag and all bony prominences were padded. Sacral, rectal and perineal area were prepped with Betadine and draped in the usual sterile fashion. Timeout was performed. An extensive excisional debridement was performed involving skin, subcutaneous tissue, fascia and bone. The debridement was performed using a combination of forceps, scalpel and electrocautery. All necrotic skin, subcutaneous tissue and fascia were debrided to the bone. The debridement was carried out from the sacrum and all islands of skin were unroofed where there was tunneling. The wound surrounded the rectal area and extended into the perineum. There were abscess cavities identified which were probed and all purulent material was expressed. The wound was then copiously irrigated with saline. Hemostasis was ensured using a combination of electrocautery and pressure. Once hemostasis was achieved, the wound was packed with saline moistened Kerlix x 2 pieces, which were tied together. This was covered with fluff gauze, ABD pads and Medipore tape. At the end of the case, all sponge, instrument, and sharp counts were correct x 2. The patient was transferred back to the stretcher and taken to PACU in stable condition. JOB# [id number] JULY/RENETTA
[2019-01-17] MEDS ORDERED: NACL 0.9 (PRIMING MACHINE ONLY DIALYSIS) MC ONE (19:17)
[2019-01-17] MEDS: VANCOMYCIN/NS 1 GM/250 ML 1 GM/250 ML BAG IV SCH (20:23)
[2019-01-17] MEDS: NEURONTIN PO SCH (21:28)
[2019-01-18] MEDS: SODIUM CHLORIDE FLUSH SYRINGE 10 ML IV SCH ×3 (01:57→21:10)
[2019-01-18] MEDS: APRESOLINE PO SCH ×3 (06:25→21:08)
[2019-01-18] MEDS: HumuLIN R SUB-Q SCH ×4 (07:07→18:00)
--- NOTE | 2019-01-18 08:05 | Progress Note ---
Assessment and Plan Assessment and plan: Patient is a 63-year-old -[place] man from [facility] with a plethora of co-morbidities including blindness, CVA, CHF, PPM/ICD, loop recorder since 2013 that is MRI compatible, IDDM type 2, sepsis left foot ulcer, afib, ESRD with complications on HD TTS, hypertension, AOCD and GERD who presented to [facility] with altered sensorium and decreased responsiveness. Decreased responsive and not eating at all for 2 days. Patient has failure to thrive, altered mentation and weight loss of 20 pounds since 12/08/2018. Severe Sepsis due to Necrotizing Unstagable sacral decubitus ulcer s/p OR on 01/01/2019 for open excisional debridement of necrotic and infected sacral wound noted a large amount of necrotic tissue debrided and two abscess cavities at the caudad portion of the wound with a copious amount of purulent drainage which was drained. Wound cultures 01/02/2019 ESBL Kleb, MDR Ecoli and E raffinosus resistant to penicillin: On meropenam and vanc per ID. Consult Vascular surgery for central line placement, planned for diverting colostomy, family has agreed, Cardiology re-evaluated for surgery, input noted, high CV risk. d/w Dr. Villela, Vascular surgery placed central line placement for Merem, 01/08/19 Further debridement done 01/14/19 Acute on chronic Anemia of AOCD: Continue epoetin, total of 8 units PRBC, follow cbc- no occult GI bleed noted. GI input noted, No retroperitoneal bleed noted. Although 150cc Of blood loss documented during debridement No further bleeding from sacral wound noted yesterday Pt is s/p x1 DDVAP Acute metabolic encephalopathy due to the above Acute systolic exacerbation of CHF (congestive heart failure): treat via Ultrafiltration during HD Afib with RVR: rate control only and optimize meds per Cardiology ESRD needing dialysis: Nephology is managing, Continue hemo dialysis Insulin dependent diabetes mellitus, A1c is 4.2: insulin was dc Severe malnutrition with FTT: 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, cont oral diet, order planner input appreciated, PEG tube placed on 01/02/19 Hypertension: Continue antihypertensives h/o Peripheral neuropathy: Continue gabapentin Elevated troponin, Secondary to end-stage renal disease, chf and afib, Cardiology input appreciated DVT prophylaxis On heparin and GI prophylaxis Anticipate discharge later today if ok with surgery and based on bed availability at the nursing facility Poor prognosis discussed with family member Mr Jennifer Mims. History Interval history: Patient was seen and examined. Follow-up on current diagnosis Sacral decubitus ulcer.On dressing change NO Further draining. Imaging, nursing note, chart, labs and old chart reviewed. S/P DEBRIDEMENT Hospitalist Physical - Physical exam Narrative exam: Gen: severely chronically ill appearing, semi-comatose, mouth open, head flexed, eyes closed, unresponsive, Moans at times HEENT: NCAT, >right eye matted shut, OP dried out with mouth open but good oral care done. Neck: supple, no adenopathy, no thyromegaly, no JVD CVS/Heart: irregular irregular, normal S1S2, pulses present bilaterally Chest/Lungs: poor air entry, Symmetrical chest expansion, good air entry bilaterally GI/Abdomen: soft, peg in place, NTND, good bowel sounds, no guarding or rebound /Bladder: no suprapubic tenderness, no CVA or paraspinal tenderness Extermity/Skin: atrophic contracted legs, dressing soaked, and changed MSK: doesn't follow commands Neuro: doesn't follow commands Psych: unresponsive - Constitutional Vitals: Temp Pulse Resp BP Pulse Ox 97.7 F 75 18 183/47 100 01/17/19 23:55 01/18/19 05:26 01/18/19 05:26 01/18/19 05:26 01/18/19 05:26 General appearance: Present: no acute distress, cachectic, disheveled Results - Labs CBC & Chem 7: 01/18/19 11:00 01/18/19 11:00 Labs: Laboratory Last Values WBC 6.9 K/mm3 (4.5-11.0) 01/17/19 05:34 RBC 2.19 M/mm3 (3.65-5.03) L 01/17/19 05:34 Hgb 6.5 gm/dl (11.8-15.2) L 01/17/19 05:34 Hct 19.7 % (35.5-45.6) L* 01/17/19 05:34 MCV 90 fl (84-94) 01/17/19 05:34 MCH 30 pg (28-32) 01/17/19 05:34 MCHC 33 % (32-34) 01/17/19 05:34 RDW 17.9 % (13.2-15.2) H 01/17/19 05:34 Plt Count 151 K/mm3 (140-440) 01/17/19 05:34 Lymph % (Auto) 5.8 % (13.4-35.0) L 01/07/19 00:45 Mckean % (Auto) 6.0 % (0.0-7.3) 01/07/19 00:45 Eos % (Auto) 3.8 % (0.0-4.3) 01/07/19 00:45 Baso % (Auto) 0.2 % (0.0-1.8) 01/07/19 00:45 Lymph # 0.5 K/mm3 (1.2-5.4) L 01/07/19 00:45 Mckean # 0.5 K/mm3 (0.0-0.8) 01/07/19 00:45 Eos # 0.3 K/mm3 (0.0-0.4) 01/07/19 00:45 Baso # 0.0 K/mm3 (0.0-0.1) 01/07/19 00:45 Add Manual Diff Complete 01/03/19 17:16 Total Counted 100 01/03/19 17:16 Seg Neutrophils % 84.2 % (40.0-70.0) H 01/07/19 00:45 Seg Neuts % (Manual) 96.0 % (40.0-70.0) H 01/03/19 17:16 0 % 01/03/19 17:16 2.0 % (13.4-35.0) L 01/03/19 17:16 Reactive Lymphs % (Man) 0 % 01/03/19 17:16 2.0 % (0.0-7.3) 01/03/19 17:16 0 % (0.0-4.3) 01/03/19 17:16 0 % (0.0-1.8) 01/03/19 17:16 0 % 01/03/19 17:16 0 % 01/03/19 17:16 0 % 01/03/19 17:16 0 % 01/03/19 17:16 Nucleated RBC % Not Reportable 01/03/19 17:16 Seg Neutrophils # 6.9 K/mm3 (1.8-7.7) 01/07/19 00:45 Seg Neutrophils # Man 10.8 K/mm3 (1.8-7.7) H 01/03/19 17:16 Band Neutrophils # 0.0 K/mm3 01/03/19 17:16 0.2 K/mm3 (1.2-5.4) L 01/03/19 17:16 Abs React Lymphs (Man) 0.0 K/mm3 01/03/19 17:16 0.2 K/mm3 (0.0-0.8) 01/03/19 17:16 0.0 K/mm3 (0.0-0.4) 01/03/19 17:16 0.0 K/mm3 (0.0-0.1) 01/03/19 17:16 0.0 K/mm3 01/03/19 17:16 0.0 K/mm3 01/03/19 17:16 0.0 K/mm3 01/03/19 17:16 Blast Cells # 0.0 K/mm3 01/03/19 17:16 WBC Morphology Not Reportable 01/03/19 17:16 Hypersegmented Neuts Not Reportable 01/03/19 17:16 Hyposegmented Neuts Not Reportable 01/03/19 17:16 Hypogranular Neuts Not Reportable 01/03/19 17:16 Not Reportable 01/03/19 17:16 Not Reportable 01/03/19 17:16 Not Reportable 01/03/19 17:16 Not Reportable 01/03/19 17:16 Not Reportable 01/03/19 17:16 Not Reportable 01/03/19 17:16 Consistent w auto 01/03/19 17:16 Not Reportable 01/03/19 17:16 Plt Clumps, EDTA Not Reportable 01/03/19 17:16 Not Reportable 01/03/19 17:16 Not Reportable 01/03/19 17:16 Not Reportable 01/03/19 17:16 Plt Morphology Comment Not Reportable 01/03/19 17:16 RBC Morphology Not Reportable 01/03/19 17:16 Dimorphic RBCs Not Reportable 01/03/19 17:16 Not Reportable 01/03/19 17:16 1+ 01/03/19 17:16 Few 01/03/19 17:16 1+ 01/03/19 17:16 Not Reportable 01/03/19 17:16 Not Reportable 01/03/19 17:16 Not Reportable 01/03/19 17:16 Not Reportable 01/03/19 17:16 Not Reportable 01/03/19 17:16 Few 01/03/19 17:16 Not Reportable 01/03/19 17:16 Few 01/03/19 17:16 Not Reportable 01/03/19 17:16 Not Reportable 01/03/19 17:16 Not Reportable 01/03/19 17:16 Not Reportable 01/03/19 17:16 Not Reportable 01/03/19 17:16 Not Reportable 01/03/19 17:16 Not Reportable 01/03/19 17:16 Acanthocytes (Spur) Not Reportable 01/03/19 17:16 Rouleaux Not Reportable 01/03/19 17:16 Not Reportable 01/03/19 17:16 Not Reportable 01/03/19 17:16 Not Reportable 01/03/19 17:16 Not Reportable 01/03/19 17:16 Hem Pathologist Commnt No 01/03/19 17:16 PT 18.0 Sec. (12.2-14.9) H 01/02/19 05:39 INR 1.39 (0.87-1.13) H 01/02/19 05:39 Sodium 134 mmol/L (137-145) L 01/17/19 05:34 Potassium 5.5 mmol/L (3.6-5.0) H 01/17/19 05:34 Chloride 98.3 mmol/L (98-107) 01/17/19 05:34 Carbon Dioxide 30 mmol/L (22-30) 01/17/19 05:34 11 mmol/L 01/17/19 05:34 BUN 26 mg/dL (9-20) H 01/17/19 05:34 2.4 mg/dL (0.8-1.5) H 01/17/19 05:34 Estimated GFR 33 ml/min 01/17/19 05:34 11 % 01/17/19 05:34 Glucose 106 mg/dL (75-100) H 01/17/19 05:34 POC Glucose 123 (70-105) H 01/18/19 05:55 < 4.2 % (4-6) 12/26/18 17:12 Lactic Acid 1.10 mmol/L (0.7-2.0) 12/27/18 07:04 Calcium 8.5 mg/dL (8.4-10.2) 01/17/19 05:34 Phosphorus 2.90 mg/dL (2.5-4.5) D 01/05/19 04:56 Magnesium 2.00 mg/dL (1.7-2.3) 01/05/19 04:56 0.20 mg/dL (0.1-1.2) 01/07/19 11:16 AST 12 units/L (5-40) 01/07/19 11:16 ALT < 5 units/L (7-56) L 01/07/19 11:16 92 units/L (35-129) 01/07/19 11:16 29 units/L (55-170) L 12/26/18 17:12 0.158 ng/mL (0.00-0.029) H* 12/26/18 17:12 5.7 g/dL (6.3-8.2) L 01/07/19 11:16 2.0 g/dL (3.9-5) L 01/07/19 11:16 0.5 % 01/07/19 11:16 Triglycerides 75 mg/dL (2-149) 12/26/18 17:12 Cholesterol 109 mg/dL (50-199) 12/26/18 17:12 43 mg/dL (50-130) L 12/26/18 17:12 41 mg/dL (40-59) 12/26/18 17:12 2.65 % 12/26/18 17:12 PTH Intact 178.6 pg/mL (15-65) H 01/01/19 17:32 Random Vancomycin 14.3 ug/mL (0-40.0) 01/15/19 10:57 Blood Type O POSITIVE 01/16/19 15:06 Antibody Screen Negative 01/16/19 15:06 Crossmatch See Detail 01/16/19 15:06 Active Medications - Current Medications Current Medications: Generic Name Dose Route Start Last Admin Trade Name Ismael PRN Reason Stop Dose Admin Acetaminophen 650 mg 12/26/18 21:40 01/10/19 18:33 Tylenol PO 650 mg Q4H PRN Administration Pain MILD(1-3)/Fever >100.5/HILL Lipase/Protease/Amylase 1 each 01/16/19 17:11 Mc Barrientos 10,500 Unit FEEDTUBE PRN PRN For Clogged Feeding Tube Aspirin 81 mg 12/27/18 10:00 01/17/19 15:26 Halfprin Ec PO 81 mg DAILY SANCHEZ Administration Epoetin Solitario 20,000 unit 01/05/19 11:03 01/17/19 12:25 Procrit IV 20,000 unit UMA PRN Administration hemodialysis Famotidine 20 mg 12/27/18 10:00 01/17/19 15:27 Pepcid PO 20 mg DAILY SANCHEZ Administration Folic Acid 1 mg 12/27/18 10:00 01/17/19 15:26 Folvite PO 1 mg DAILY SANCHEZ Administration Gabapentin 100 mg 12/26/18 22:00 01/17/19 21:28 Neurontin PO 100 mg QHS SANCHEZ Administration Hydralazine HCl 100 mg 12/26/18 22:00 01/18/19 06:25 Apresoline PO 100 mg Q8HR SANCHEZ Administration Meropenem 1,000 mg/ Sodium 100 mls @ 100 mls/hr 01/05/19 11:00 01/17/19 15:28 Chloride IV 02/16/19 10:59 100 mls/hr Q24HR SANCHEZ Administration Vancomycin HCl 1 gm in 250 mls @ 167.007 mls/hr 01/06/19 20:00 01/17/19 20:23 Vancomycin/Ns 1 Gm/250 Ml IV 02/17/19 21:30 167.007 mls/hr TuThSa SANCHEZ Administration Sodium Chloride 100 mls @ 999 mls/hr 01/08/19 08:31 Nacl 0.9% IV UMA PRN Hypotension Dextrose 1,000 mls @ 45 mls/hr 01/14/19 13:00 01/14/19 12:45 D5w IV 45 mls/hr DIRECT SANCHEZ Administration Insulin Human Regular 0 units 01/14/19 00:00 01/18/19 07:07 Humulin R SUB-Q Not Given Q6HR SANCHEZ Protocol Metoprolol Tartrate 5 mg 12/27/18 18:55 12/29/18 05:41 Lopressor IV 5 mg Q5MIN PRN Administration increased heart rate Metoprolol Tartrate 100 mg 12/31/18 22:00 01/17/19 21:28 Lopressor PO 100 mg BID SANCHEZ Administration Ondansetron HCl 4 mg 12/26/18 21:40 01/10/19 12:23 Zofran IV 4 mg Q8H PRN Administration Nausea And Vomiting Oxycodone/Acetaminophen 1 tab 01/05/19 08:30 01/17/19 21:29 Percocet 5/325 PO 1 tab Q6H PRN Administration Pain, Moderate (4-6) Risperidone 0.5 mg 12/26/18 22:00 01/17/19 21:28 Risperdal PO 0.5 mg QHS SANCHEZ Administration Risperidone 1 mg 12/27/18 10:00 01/17/19 15:27 Risperdal PO 1 mg QAM SANCHEZ Administration Sertraline HCl 100 mg 12/27/18 10:00 01/17/19 15:27 Zoloft PO 100 mg QDAY SANCHEZ Administration Simple Syrup 15 ml 01/16/19 17:11 Simple Syrup FEEDTUBE PRN PRN Hypoglycemia Simple Syrup 30 ml 01/16/19 17:11 Simple Syrup FEEDTUBE PRN PRN Hypoglycemia Sodium Bicarbonate 325 mg 01/16/19 17:11 Sodium Bicarbonate FEEDTUBE PRN PRN For Clogged Feeding Tube Sodium Chloride 10 ml 12/26/18 22:00 01/18/19 01:57 Sodium Chloride Flush Syringe 10 Ml IV 10 ml BID SANCHEZ Administration Sodium Chloride 10 ml 12/26/18 21:40 01/16/19 21:00 Sodium Chloride Flush Syringe 10 Ml IV 10 ml PRN PRN Administration LINE FLUSH Sodium Hypochlorite 1 applic 01/01/19 15:31 01/10/19 12:23 Dakin's Half Strength TP 1 applicatio Q12H PRN Administration Wound Care Nutrition/Malnutrition Assess - Dietary Evaluation Nutrition/Malnutrition Findings: Nutrition Notes Start: 12/27/18 17:15 Freq: Status: Active Protocol: Document 01/16/19 17:08 RM (Rec: 01/16/19 17:11 RM [id number]) Nutrition Notes Initial or Follow up Reassessment Current Diagnosis CKD (stage V CKD),Diabetes, Sepsis,Hypertension Other Pertinent Diagnosis Hx CVA,S/P PEG, Sacral wound, FTT, acute encephalopathy Current Diet No diet ordered Labs/Tests Reviewed Pertinent Medications Reviewed Height 5 ft 7 in Weight 85.4 kg [place] Body Weight (kg) 67.27 BMI 29.5 Subjective/Other Information Observed Glucerna 1.2 infusing at goal rate. Percent of energy/protein needs met: 97%/100% Burn Absent Trauma Absent #2 Nutrition Diagnosis Increased nutrient needs ( specify in comment below) Diagnosis Progress(for reassessment Continues documentation) #1 Nutrition Diagnosis Inadequate oral intake Diagnosis Progress(for reassessment Continues documentation) Is patient on ventilator? No Is Patient Ambulatory and/or Out of Bed No REE-([facility]-confined to bed) [phone] Calculation Used for Recommendations [facility] Additional Notes Pro needs 1.2-1.4g/k- 118g/day Fluid needs 1-1.5L/day Nutrition Intervention Nutrition Support: Glucerna 1.2 at 65 ml/hr. Water flush of 100 mls q 4 hrs . Kcal 1,872 Protein (gm) 94 Carbohydrates (gm) 179 Fat (gm) 94 Fluid (mL) 1,256 Fiber (gm) 25 Goal #1 Continue to meet at least 75% of calorie and protein needs via TF Anticipated Discharge Needs: Glucerna 1.2 Follow-Up By: 01/23/19 Additional Comments Follow for TF tolerance
--- NOTE | 2019-01-18 08:51 | Progress Note ---
Assessment and Plan Impression * End-stage renal disease on maintenance hemodialysis * Altered mental status * s/p diverting colostomy * Sacral decubitus * Hypokalemia * Failure to thrive * Hypophosphatemia * Malnutrition * Anemia secondary to ESRD * Hypomagnesemia Recommendations * Continue dialysis on TTS schedule for now * prn PRBCs * s/p PRBCs--2 units * Antibiotic therapy and local wound care as per primary team/surgery * Avoid nephrotoxins * Epogen with dialysis * Adjust diet and meds were ESRD state Subjective Date of service: 01/18/19 Principal diagnosis: drop in H/H Interval history: resting in bed Objective - Exam Narrative Exam: General appearance: chronically ill, frail EENT: PERRL, mucous membranes moist Neck: no JVD, no thyromegaly, no carotid bruit, supple, other (IJ PermCath in place) Respiratory: Present: Clear to Ascultation Cardiology: regular, normal heart rate, S1S2, no murmurs Gastrointestinal: normal, normoactive bowel sounds, other (PEG tube in place) - Vital Signs Vital signs: Vital Signs - 12hr 01/17/19 01/17/19 01/18/19 21:28 23:55 05:26 Temperature 97.7 F Pulse Rate 104 H 76 75 Respiratory 18 18 Rate Blood Pressure 143/93 114/67 183/47 O2 Sat by Pulse 100 100 Oximetry - Lab 01/17/19 05:34 01/17/19 05:34 Most recent lab results Calcium 8.5 mg/dL (8.4-10.2) 01/17/19 05:34 Phosphorus 2.90 mg/dL (2.5-4.5) D 01/05/19 04:56 Magnesium 2.00 mg/dL (1.7-2.3) 01/05/19 04:56 Medications & Allergies - Medications Allergies/Adverse Reactions: Allergies haloperidol [From Haldol] Adverse Reaction (Verified 03/13/18 12:10) Unknown haloperidol lactate [From Haldol] Adverse Reaction (Verified 03/13/18 12:10) Unknown Home Medications: Home Medications Medication Instructions Recorded Confirmed Last Taken Type risperiDONE [RisperDAL] 1 mg PO QAM 03/13/18 12/27/18 Unknown History Sertraline [Zoloft] 100 mg PO QDAY 08/26/18 12/27/18 Unknown History risperiDONE [RisperDAL] 0.5 mg PO HS 08/26/18 12/27/18 Unknown History Polyethylene Glycol 3350 [Miralax 17 gm PO QDAY #30 packet 11/05/18 12/27/18 Unknown Rx 3350] Aspirin EC 81 mg PO DAILY #30 11/19/18 12/27/18 Unknown Rx Docusate Sodium [Colace CAP] 100 mg PO BID #60 11/19/18 12/27/18 Unknown Rx Folic Acid [Folvite] 1 mg PO DAILY #30 tab 11/19/18 12/27/18 Unknown Rx Famotidine [Pepcid] 20 mg PO DAILY tablet 12/08/18 12/27/18 Unknown Rx Gabapentin [Neurontin] 100 mg PO QHS capsule 12/08/18 12/27/18 Unknown Rx Metoprolol [Lopressor TAB] 50 mg PO BID 30 Days tablet 12/08/18 12/27/18 Unknown Rx Sevelamer Carbonate [Renvela] 800 mg PO TIDWM tablet 12/08/18 12/27/18 Unknown Rx hydrALAZINE [Apresoline TAB] 100 mg PO Q8HR #120 tablet 12/08/18 12/27/18 Unknown Rx Acetaminophen [Acetaminophen TAB] 650 mg PO Q12H PRN 12/15/18 12/27/18 Unknown History Amino Acids/Protein Hydrolys 30 ml PO BID 12/15/18 12/27/18 Unknown History [Pro-Stat Sugar Free Liquid] Glucagon,Human Recombinant 1 mg IJ Q15MIN PRN 12/15/18 12/27/18 Unknown History [Glucagon Emergency Kit] Insulin Aspart [NovoLOG 100 See Protocol SQ QWEEK 12/15/18 12/27/18 Unknown History UNITS/ML VIAL] Epoetin Solitario 10,000 Unit [Procrit] 10,000 unit IV UMA PRN vial 12/18/18 12/27/18 Unknown Rx Lispro Insulin [HumaLOG] 0 unit SUB-Q ACHS units 12/18/18 12/27/18 Unknown Rx risperiDONE [RisperDAL] 0.5 mg PO QHS tablet 12/18/18 12/27/18 Unknown Rx Meropenem [Merrem] 1,000 mg IV Q24HR vial 01/16/19 Unknown Rx Active Medications: Generic Name Dose Route Start Last Admin Trade Name Freq PRN Reason Stop Dose Admin Acetaminophen 650 mg 12/26/18 21:40 01/10/19 18:33 Tylenol PO 650 mg Q4H PRN Administration Pain MILD(1-3)/Fever >100.5/HILL Lipase/Protease/Amylase 1 each 01/16/19 17:11 Pancrejewel Barrientos 10,500 Unit FEEDTUBE PRN PRN For Clogged Feeding Tube Aspirin 81 mg 12/27/18 10:00 01/17/19 15:26 Halfprin Ec PO 81 mg DAILY SANCHEZ Administration Epoetin Solitario 20,000 unit 01/05/19 11:03 01/17/19 12:25 Procrit IV 20,000 unit UMA PRN Administration hemodialysis Famotidine 20 mg 12/27/18 10:00 01/17/19 15:27 Pepcid PO 20 mg DAILY SANCHEZ Administration Folic Acid 1 mg 12/27/18 10:00 01/17/19 15:26 Folvite PO 1 mg DAILY SANCHEZ Administration Gabapentin 100 mg 12/26/18 22:00 01/17/19 21:28 Neurontin PO 100 mg QHS SANCHEZ Administration Hydralazine HCl 100 mg 12/26/18 22:00 01/18/19 06:25 Apresoline PO 100 mg Q8HR SANCHEZ Administration Meropenem 1,000 mg/ Sodium 100 mls @ 100 mls/hr 01/05/19 11:00 01/17/19 15:28 Chloride IV 02/16/19 10:59 100 mls/hr Q24HR SANCHEZ Administration Vancomycin HCl 1 gm in 250 mls @ 167.007 mls/hr 01/06/19 20:00 01/17/19 20:23 Vancomycin/Ns 1 Gm/250 Ml IV 02/17/19 21:30 167.007 mls/hr TuThSa SANCHEZ Administration Sodium Chloride 100 mls @ 999 mls/hr 01/08/19 08:31 Nacl 0.9% IV UMA PRN Hypotension Dextrose 1,000 mls @ 45 mls/hr 01/14/19 13:00 01/14/19 12:45 D5w IV 45 mls/hr DIRECT SANCHEZ Administration Insulin Human Regular 0 units 01/14/19 00:00 01/18/19 07:07 Humulin R SUB-Q Not Given Q6HR SANCHEZ Protocol Metoprolol Tartrate 5 mg 12/27/18 18:55 12/29/18 05:41 Lopressor IV 5 mg Q5MIN PRN Administration increased heart rate Metoprolol Tartrate 100 mg 12/31/18 22:00 01/17/19 21:28 Lopressor PO 100 mg BID SANCHEZ Administration Ondansetron HCl 4 mg 12/26/18 21:40 01/10/19 12:23 Zofran IV 4 mg Q8H PRN Administration Nausea And Vomiting Oxycodone/Acetaminophen 1 tab 01/05/19 08:30 01/17/19 21:29 Percocet 5/325 PO 1 tab Q6H PRN Administration Pain, Moderate (4-6) Risperidone 0.5 mg 12/26/18 22:00 01/17/19 21:28 Risperdal PO 0.5 mg QHS SANCHEZ Administration Risperidone 1 mg 12/27/18 10:00 01/17/19 15:27 Risperdal PO 1 mg QAM SANCHEZ Administration Sertraline HCl 100 mg 12/27/18 10:00 01/17/19 15:27 Zoloft PO 100 mg QDAY SANCHEZ Administration Simple Syrup 15 ml 01/16/19 17:11 Simple Syrup FEEDTUBE PRN PRN Hypoglycemia Simple Syrup 30 ml 01/16/19 17:11 Simple Syrup FEEDTUBE PRN PRN Hypoglycemia Sodium Bicarbonate 325 mg 01/16/19 17:11 Sodium Bicarbonate FEEDTUBE PRN PRN For Clogged Feeding Tube Sodium Chloride 10 ml 12/26/18 22:00 01/18/19 01:57 Sodium Chloride Flush Syringe 10 Ml IV 10 ml BID SANCHEZ Administration Sodium Chloride 10 ml 12/26/18 21:40 01/16/19 21:00 Sodium Chloride Flush Syringe 10 Ml IV 10 ml PRN PRN Administration LINE FLUSH Sodium Hypochlorite 1 applic 01/01/19 15:31 01/10/19 12:23 Dakin's Half Strength TP 1 applicatio Q12H PRN Administration Wound Care
[2019-01-18 11:09] LABS: Hematocrit 28.3 % (35.5-45.6); Hemoglobin 9.2 gm/dl (11.8-15.2); Mean Corpuscular HGB Conc 33 % (32-34); Mean Corpuscular Volume 90 fl (84-94); Platelet Count 140 K/mm3 (140-440); Red Blood Count 3.14 M/mm3 (3.65-5.03); Red Cell Distribution Width 16.8 % (13.2-15.2)
[2019-01-18] MEDS: HALFPRIN EC PO SCH (11:11)
[2019-01-18] MEDS: LOPRESSOR PO SCH ×2 (11:11→21:09)
[2019-01-18] MEDS: ZOLOFT PO SCH (11:11)
[2019-01-18] MEDS: RisperDAL PO SCH ×2 (11:11→21:08)
[2019-01-18] MEDS: PEPCID PO SCH (11:11)
[2019-01-18] MEDS: FOLVITE PO SCH (11:12)
[2019-01-18 11:30] LABS: Calcium 8.7 mg/dL (8.4-10.2)
[2019-01-18] MEDS: MERREM 1,000 MG in NACL 0.9% 100 ML IV SCH (14:43)
[2019-01-18] MEDS: PERCOCET 5/325 PO PRN ×2 (14:43→21:08)
--- NOTE | 2019-01-18 15:25 | Progress Note ---
Assessment and Plan 63 yo M s/p debridement of sacral wound, POD 4 and diverting end colostomy on 01/12/19 1. infected stage 4 sacral wound 2. malnutrition 3. failure to thrive s/p PEG tube 4. bedbound 5. AMS 6. ESRD on HD 7. hyponatremia 8. anemia - source likely multifactorial, acute blood loss from sacral wound CT scan A/P - ascites, ?hemorrhage Plan: 1. Dakins moistened kerlex packing to wound daily 2. c/w TF via PEG 3. MRI pelvis could not be done due to loop recorder 4. c/w IV abx. Would treat as clinical osteomyelitis 5. continue offloading and frequent turning of patient 6. monitor nutrition labs weekly 7. Transfused PRBC yesterday. Hb up to 9. Continue to monitor. Bleeding from wound significantly improved. Very poor prognosis for wound healing. I do not feel wound will ever heal due to extensive nature, poor nutrition, bedbound status, among other comorbidities. Recommend hospice. I addition, during dressing changes, patient c/o pain to his sacral area and continuously asks us to stop because his legs and sacral area hurt. I recommended that he conveys his wishes to his family. Ok to dc to NH when bed available. Would hold off on vac and continue dakins dressings to wound. May follow up in wound care center after dc. Subjective Date of service: 01/18/19 Narrative: Pt seen and examined. c/o pain in his sacral region. No f/c Objective Vital Signs - 12hr 01/18/19 01/18/19 05:26 12:29 Temperature 97.4 F L Pulse Rate 75 66 Respiratory 18 18 Rate Blood Pressure 183/47 111/70 O2 Sat by Pulse 100 100 Oximetry - General physical appearance Narrative Exam: Gen: Awake and alert. NAD CV: s1, S2+ resp; even and unlabored Abd: ostomy pink with stool and air in bag. Incisions c/d/i Sacrum/Perineum: All dressing and packing material removed including quick clot. Bleeding much improved with 90% of the wound bed dry. There is some oozing from the tunnelling area at the superior aspect of the rectum. Aston powder sprayed over this portion of the wound and tunnel packed with surgicel. Pressure held and bleeding stopped. Wound with slough over exposed bone and slight foul odor. Packed with dakins moistened kerlex, covered with gauze, ABD pads and sacral foam dressing. - Labs 01/18/19 11:00 01/18/19 11:00 Diabetes panel 01/18/19 Range/Units 11:00 Sodium 133 L (137-145) mmol/L Potassium 4.9 (3.6-5.0) mmol/L Chloride 97.4 L (98-107) mmol/L Carbon Dioxide 30 (22-30) mmol/L BUN 20 (9-20) mg/dL Creatinine 1.9 H (0.8-1.5) mg/dL Glucose 117 H (75-100) mg/dL Calcium 8.7 (8.4-10.2) mg/dL Calcium panel 01/18/19 Range/Units 11:00 Calcium 8.7 (8.4-10.2) mg/dL Pituitary panel 01/18/19 Range/Units 11:00 Sodium 133 L (137-145) mmol/L Potassium 4.9 (3.6-5.0) mmol/L Chloride 97.4 L (98-107) mmol/L Carbon Dioxide 30 (22-30) mmol/L BUN 20 (9-20) mg/dL Creatinine 1.9 H (0.8-1.5) mg/dL Glucose 117 H (75-100) mg/dL Calcium 8.7 (8.4-10.2) mg/dL Adrenal panel 01/18/19 Range/Units 11:00 Sodium 133 L (137-145) mmol/L Potassium 4.9 (3.6-5.0) mmol/L Chloride 97.4 L (98-107) mmol/L Carbon Dioxide 30 (22-30) mmol/L BUN 20 (9-20) mg/dL Creatinine 1.9 H (0.8-1.5) mg/dL Glucose 117 H (75-100) mg/dL Calcium 8.7 (8.4-10.2) mg/dL
[2019-01-18] MEDS: NEURONTIN PO SCH (21:08)
[2019-01-19] MEDS: HumuLIN R SUB-Q SCH ×4 (02:26→18:05)
[2019-01-19] MEDS: APRESOLINE PO SCH ×3 (06:27→22:52)
[2019-01-19 08:18] LABS: Basophils # (Auto) 0.1 K/mm3 (0.0-0.1); Basophils % (Auto) 1.5 % (0.0-1.8); Calcium 8.9 mg/dL (8.4-10.2); Eosinophils # (Auto) 0.6 K/mm3 (0.0-0.4); Eosinophils % (Auto) 9.3 % (0.0-4.3); Hematocrit 27.9 % (35.5-45.6); Hemoglobin 9.2 gm/dl (11.8-15.2); Lymphocytes # (Auto) 0.7 K/mm3 (1.2-5.4); Mean Corpuscular HGB Conc 33 % (32-34); Mean Corpuscular Volume 90 fl (84-94); Monocytes # (Auto) 0.6 K/mm3 (0.0-0.8); Monocytes % (Auto) 9.1 % (0.0-7.3); Platelet Count 149 K/mm3 (140-440); Red Cell Distribution Width 17.4 % (13.2-15.2)
--- NOTE | 2019-01-19 08:32 | Progress Note ---
Assessment and Plan Impression: * End stage renal disease * Failure to thrive * Infected sacral decubitus ulcer * Schizophrenia * Chronic atrial fibrillation * Coronary artery disease * History of CVA * Hyponatremia * Anemia secondary to ESRD * Hyperkalemia Plan: * Short HD treatment today in light of hyperkalemia * Continue TTS schedule - adjust K bath from 3K to 2K * UF as tolerated * Surgery recommendations reviewed * Abx per ID/primary team * Nutrition per primary team * Dose medications for renal function * Epogen TID prn Subjective Date of service: 01/19/19 Principal diagnosis: drop in H/H Interval history: Resting comfortably. No acute events overnight. Objective - Vital Signs Vital signs: Vital Signs - 12hr 01/18/19 01/18/19 01/18/19 20:59 21:09 22:38 Temperature 97.5 F L 98.0 F Pulse Rate 76 76 83 Respiratory 18 18 Rate Blood Pressure 158/59 158/59 112/73 O2 Sat by Pulse 93 100 Oximetry 01/19/19 05:15 Temperature 97.9 F Pulse Rate 74 Respiratory 16 Rate Blood Pressure 123/62 O2 Sat by Pulse 100 Oximetry - General Appearance General appearance: well-developed EENT: ATNC Respiratory: Present: Clear to Ascultation Cardiology: regular, S1S2 Gastrointestinal: other (ostomy) Musculoskeletal: other (no edema) - Lab 01/19/19 Unknown 01/19/19 Unknown Most recent lab results Calcium 8.9 mg/dL (8.4-10.2) 01/19/19 Unknown Phosphorus 2.90 mg/dL (2.5-4.5) D 01/05/19 04:56 Magnesium 2.00 mg/dL (1.7-2.3) 01/05/19 04:56 Medications & Allergies - Medications Allergies/Adverse Reactions: Allergies haloperidol [From Haldol] Adverse Reaction (Verified 03/13/18 12:10) Unknown haloperidol lactate [From Haldol] Adverse Reaction (Verified 03/13/18 12:10) Unknown Home Medications: Home Medications Medication Instructions Recorded Confirmed Last Taken Type risperiDONE [RisperDAL] 1 mg PO QAM 03/13/18 12/27/18 Unknown History Sertraline [Zoloft] 100 mg PO QDAY 08/26/18 12/27/18 Unknown History risperiDONE [RisperDAL] 0.5 mg PO HS 08/26/18 12/27/18 Unknown History Polyethylene Glycol 3350 [Miralax 17 gm PO QDAY #30 packet 11/05/18 12/27/18 Unknown Rx 3350] Aspirin EC 81 mg PO DAILY #30 11/19/18 12/27/18 Unknown Rx Docusate Sodium [Colace CAP] 100 mg PO BID #60 11/19/18 12/27/18 Unknown Rx Folic Acid [Folvite] 1 mg PO DAILY #30 tab 11/19/18 12/27/18 Unknown Rx Famotidine [Pepcid] 20 mg PO DAILY tablet 12/08/18 12/27/18 Unknown Rx Gabapentin [Neurontin] 100 mg PO QHS capsule 12/08/18 12/27/18 Unknown Rx Metoprolol [Lopressor TAB] 50 mg PO BID 30 Days tablet 12/08/18 12/27/18 Unknown Rx Sevelamer Carbonate [Renvela] 800 mg PO TIDWM tablet 12/08/18 12/27/18 Unknown Rx hydrALAZINE [Apresoline TAB] 100 mg PO Q8HR #120 tablet 12/08/18 12/27/18 Unknown Rx Acetaminophen [Acetaminophen TAB] 650 mg PO Q12H PRN 12/15/18 12/27/18 Unknown History Amino Acids/Protein Hydrolys 30 ml PO BID 12/15/18 12/27/18 Unknown History [Pro-Stat Sugar Free Liquid] Glucagon,Human Recombinant 1 mg IJ Q15MIN PRN 12/15/18 12/27/18 Unknown History [Glucagon Emergency Kit] Insulin Aspart [NovoLOG 100 See Protocol SQ QWEEK 12/15/18 12/27/18 Unknown History UNITS/ML VIAL] Epoetin Solitario 10,000 Unit [Procrit] 10,000 unit IV UMA PRN vial 12/18/18 12/27/18 Unknown Rx Lispro Insulin [HumaLOG] 0 unit SUB-Q ACHS units 12/18/18 12/27/18 Unknown Rx risperiDONE [RisperDAL] 0.5 mg PO QHS tablet 12/18/18 12/27/18 Unknown Rx Meropenem [Merrem] 1,000 mg IV Q24HR vial 01/16/19 Unknown Rx Active Medications: Generic Name Dose Route Start Last Admin Trade Name Freq PRN Reason Stop Dose Admin Acetaminophen 650 mg 12/26/18 21:40 01/10/19 18:33 Tylenol PO 650 mg Q4H PRN Administration Pain MILD(1-3)/Fever >100.5/HILL Lipase/Protease/Amylase 1 each 01/16/19 17:11 Pancrejewel Barrientos 10,500 Unit FEEDTUBE PRN PRN For Clogged Feeding Tube Aspirin 81 mg 12/27/18 10:00 01/18/19 11:11 Halfprin Ec PO 81 mg DAILY SANCHEZ Administration Epoetin Solitario 20,000 unit 01/05/19 11:03 01/17/19 12:25 Procrit IV 20,000 unit UMA PRN Administration hemodialysis Famotidine 20 mg 12/27/18 10:00 01/18/19 11:11 Pepcid PO 20 mg DAILY SANCHEZ Administration Folic Acid 1 mg 12/27/18 10:00 01/18/19 11:12 Folvite PO 1 mg DAILY SANCHEZ Administration Gabapentin 100 mg 12/26/18 22:00 01/18/19 21:08 Neurontin PO 100 mg QHS SANCHEZ Administration Hydralazine HCl 100 mg 12/26/18 22:00 01/19/19 06:27 Apresoline PO 100 mg Q8HR SANCHEZ Administration Meropenem 1,000 mg/ Sodium 100 mls @ 100 mls/hr 01/05/19 11:00 01/18/19 14:43 Chloride IV 02/16/19 10:59 100 mls/hr Q24HR SANCHEZ Administration Vancomycin HCl 1 gm in 250 mls @ 167.007 mls/hr 01/06/19 20:00 01/17/19 20:23 Vancomycin/Ns 1 Gm/250 Ml IV 02/17/19 21:30 167.007 mls/hr TuThSa SANCHEZ Administration Sodium Chloride 100 mls @ 999 mls/hr 01/08/19 08:31 Nacl 0.9% IV UMA PRN Hypotension Dextrose 1,000 mls @ 45 mls/hr 01/14/19 13:00 01/14/19 12:45 D5w IV 45 mls/hr DIRECT SANCHEZ Administration Insulin Human Regular 0 units 01/14/19 00:00 01/19/19 06:21 Humulin R SUB-Q Not Given Q6HR [facility] Protocol Metoprolol Tartrate 5 mg 12/27/18 18:55 12/29/18 05:41 Lopressor IV 5 mg Q5MIN PRN Administration increased heart rate Metoprolol Tartrate 100 mg 12/31/18 22:00 01/18/19 21:09 Lopressor PO 100 mg BID SANCHEZ Administration Ondansetron HCl 4 mg 12/26/18 21:40 01/10/19 12:23 Zofran IV 4 mg Q8H PRN Administration Nausea And Vomiting Oxycodone/Acetaminophen 1 tab 01/05/19 08:30 01/18/19 21:08 Percocet 5/325 PO 1 tab Q6H PRN Administration Pain, Moderate (4-6) Risperidone 0.5 mg 12/26/18 22:00 01/18/19 21:08 Risperdal PO 0.5 mg QHS SANCHEZ Administration Risperidone 1 mg 12/27/18 10:00 01/18/19 11:11 Risperdal PO 1 mg QAM SANCHEZ Administration Sertraline HCl 100 mg 12/27/18 10:00 01/18/19 11:11 Zoloft PO 100 mg QDAY SANCHEZ Administration Simple Syrup 15 ml 01/16/19 17:11 Simple Syrup FEEDTUBE PRN PRN Hypoglycemia Simple Syrup 30 ml 01/16/19 17:11 Simple Syrup FEEDTUBE PRN PRN Hypoglycemia Sodium Bicarbonate 325 mg 01/16/19 17:11 Sodium Bicarbonate FEEDTUBE PRN PRN For Clogged Feeding Tube Sodium Chloride 10 ml 12/26/18 22:00 01/18/19 21:10 Sodium Chloride Flush Syringe 10 Ml IV 10 ml BID SANCHEZ Administration Sodium Chloride 10 ml 12/26/18 21:40 01/16/19 21:00 Sodium Chloride Flush Syringe 10 Ml IV 10 ml PRN PRN Administration LINE FLUSH Sodium Hypochlorite 1 applic 01/19/19 10:00 Dakin's Half Strength TP QDAY SANCHEZ
[2019-01-19] MEDS ORDERED: NACL 0.9% 100 ML IV PRN (09:29)
[2019-01-19] MEDS ORDERED: DAKIN'S HALF STRENGTH TP SCH (10:00)
[2019-01-19] MEDS: PROCRIT IV PRN (12:34)
[2019-01-19] MEDS: ZOLOFT PO SCH (14:05)
[2019-01-19] MEDS: PEPCID PO SCH (14:05)
[2019-01-19] MEDS: HALFPRIN EC PO SCH (14:05)
[2019-01-19] MEDS: RisperDAL PO SCH ×2 (14:06→22:53)
[2019-01-19] MEDS: SODIUM CHLORIDE FLUSH SYRINGE 10 ML IV SCH ×2 (14:06→22:55)
[2019-01-19] MEDS: LOPRESSOR PO SCH ×2 (14:09→22:53)
[2019-01-19] MEDS: MERREM 1,000 MG in NACL 0.9% 100 ML IV SCH (14:09)
[2019-01-19] MEDS: FOLVITE PO SCH (14:11)
--- NOTE | 2019-01-19 15:56 | Progress Note ---
Assessment and Plan Assessment and plan: Patient is a 63-year-old -[place] man from [facility] with a plethora of co-morbidities including blindness, CVA, CHF, PPM/ICD, loop recorder since 2013 that is MRI compatible, IDDM type 2, sepsis left foot ulcer, afib, ESRD with complications on HD TTS, hypertension, AOCD and GERD who presented to [facility] with altered sensorium and decreased responsiveness. Decreased responsive and not eating at all for 2 days. Patient has failure to thrive, altered mentation and weight loss of 20 pounds since 12/08/2018. Severe Sepsis due to Necrotizing Unstagable sacral decubitus ulcer with ostemomylitis s/p OR on 01/01/2019 for open excisional debridement of necrotic and infected sacral wound noted a large amount of necrotic tissue debrided and two abscess cavities at the caudad portion of the wound with a copious amount of purulent drainage which was drained. Wound cultures 01/02/2019 ESBL Kleb, MDR Ecoli and E raffinosus resistant to penicillin: On meropenam and vanc per ID. Consult Vascular surgery for central line placement, planned for diverting colostomy, family has agreed, Cardiology re-evaluated for surgery, input noted, high CV risk. d/w Dr. Villela, Vascular surgery placed central line placement for Merem, 01/08/19 Further debridement done 01/14/19 pateint noted to have lost over 150cc Of blood during this procedure. Acute on chronic Anemia of AOCD: Continue epoetin, total of 8 units PRBC, follow cbc- no occult GI bleed noted. GI input noted, No retroperitoneal bleed noted. Although 150cc Of blood loss documented during debridement No further bleeding from sacral wound noted Dakins moistened kerlex packing started Pt is s/p x1 DDVAP Acute metabolic encephalopathy due to the above Acute systolic exacerbation of CHF (congestive heart failure): treat via Ultrafiltration during HD Afib with RVR: rate control only and optimize meds per Cardiology ESRD needing dialysis: Nephology is managing, Continue hemo dialysis Insulin dependent diabetes mellitus, A1c is 4.2: insulin was dc Severe malnutrition with FTT: 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, cont oral diet, software test specialist input appreciated, PEG tube placed on 01/02/19 Hypertension: Continue antihypertensives h/o Peripheral neuropathy: Continue gabapentin Elevated troponin, Secondary to end-stage renal disease, chf and afib, Cardiology input appreciated DVT prophylaxis On heparin and GI prophylaxis Anticipate discharge later today if ok with surgery and based on bed availability at the nursing facility Poor prognosis discussed with family member Mr Jennifer Mims. Per discussion with Surgery and as documented by them "Very poor prognosis for wound healing. I do not feel wound will ever heal due to extensive nature, poor nutrition, bedbound status, among other comorbidities. Recommend hospice." Family not accepting at this time. Ok to dc to NH when bed available. Would hold off on vac and continue dakins dressings to wound. May follow up in wound care center after dc. History Interval history: Patient was seen and examined. Follow-up on current diagnosis Sacral decubitus ulcer. On dressing change NO Further draining. Imaging, nursing note, chart, labs and old chart reviewed. AWAITING PLACEMENT Hospitalist Physical - Physical exam Narrative exam: Gen: severely chronically ill appearing, semi-comatose, mouth open, head flexed, eyes closed, unresponsive, Moans at times HEENT: NCAT, >right eye matted shut, OP dried out with mouth open but good oral care done. Neck: supple, no adenopathy, no thyromegaly, no JVD CVS/Heart: irregular irregular, normal S1S2, pulses present bilaterally Chest/Lungs: poor air entry, Symmetrical chest expansion, good air entry bilaterally GI/Abdomen: soft, peg in place, NTND, good bowel sounds, no guarding or rebound /Bladder: no suprapubic tenderness, no CVA or paraspinal tenderness Extermity/Skin: atrophic contracted legs, dressing Intact, no overt drainage MSK: doesn't follow commands Neuro: doesn't follow commands Psych: MOANS at times - Constitutional Vitals: Temp Pulse Resp BP Pulse Ox 98.0 F 76 14 108/72 92 01/19/19 12:45 01/19/19 12:45 01/19/19 12:45 01/19/19 12:45 01/19/19 12:00 General appearance: Present: no acute distress, cachectic, disheveled Results - Labs CBC & Chem 7: 01/19/19 Unknown 01/19/19 Unknown Labs: Laboratory Last Values WBC 6.2 K/mm3 (4.5-11.0) 01/19/19 Unknown RBC 3.10 M/mm3 (3.65-5.03) L 01/19/19 Unknown Hgb 9.2 gm/dl (11.8-15.2) L 01/19/19 Unknown Hct 27.9 % (35.5-45.6) L 01/19/19 Unknown MCV 90 fl (84-94) 01/19/19 Unknown MCH 30 pg (28-32) 01/19/19 Unknown MCHC 33 % (32-34) 01/19/19 Unknown RDW 17.4 % (13.2-15.2) H 01/19/19 Unknown Plt Count 149 K/mm3 (140-440) 01/19/19 Unknown Lymph % (Auto) 12.0 % (13.4-35.0) L 01/19/19 Unknown [place] % (Auto) 9.1 % (0.0-7.3) H 01/19/19 Unknown Eos % (Auto) 9.3 % (0.0-4.3) H 01/19/19 Unknown Baso % (Auto) 1.5 % (0.0-1.8) 01/19/19 Unknown Lymph # 0.7 K/mm3 (1.2-5.4) L 01/19/19 Unknown [place] # 0.6 K/mm3 (0.0-0.8) 01/19/19 Unknown Eos # 0.6 K/mm3 (0.0-0.4) H 01/19/19 Unknown Baso # 0.1 K/mm3 (0.0-0.1) 01/19/19 Unknown Add Manual Diff Complete 01/03/19 17:16 Total Counted 100 01/03/19 17:16 Seg Neutrophils % 68.1 % (40.0-70.0) 01/19/19 Unknown Seg Neuts % (Manual) 96.0 % (40.0-70.0) H 01/03/19 17:16 0 % 01/03/19 17:16 2.0 % (13.4-35.0) L 01/03/19 17:16 Reactive Lymphs % (Man) 0 % 01/03/19 17:16 2.0 % (0.0-7.3) 01/03/19 17:16 0 % (0.0-4.3) 01/03/19 17:16 0 % (0.0-1.8) 01/03/19 17:16 0 % 01/03/19 17:16 0 % 01/03/19 17:16 0 % 01/03/19 17:16 0 % 01/03/19 17:16 Nucleated RBC % Not Reportable 01/03/19 17:16 Seg Neutrophils # 4.2 K/mm3 (1.8-7.7) 01/19/19 Unknown Seg Neutrophils # Man 10.8 K/mm3 (1.8-7.7) H 01/03/19 17:16 Band Neutrophils # 0.0 K/mm3 01/03/19 17:16 0.2 K/mm3 (1.2-5.4) L 01/03/19 17:16 Abs React Lymphs (Man) 0.0 K/mm3 01/03/19 17:16 0.2 K/mm3 (0.0-0.8) 01/03/19 17:16 0.0 K/mm3 (0.0-0.4) 01/03/19 17:16 0.0 K/mm3 (0.0-0.1) 01/03/19 17:16 0.0 K/mm3 01/03/19 17:16 0.0 K/mm3 01/03/19 17:16 0.0 K/mm3 01/03/19 17:16 Blast Cells # 0.0 K/mm3 01/03/19 17:16 WBC Morphology Not Reportable 01/03/19 17:16 Hypersegmented Neuts Not Reportable 01/03/19 17:16 Hyposegmented Neuts Not Reportable 01/03/19 17:16 Hypogranular Neuts Not Reportable 01/03/19 17:16 Not Reportable 01/03/19 17:16 Not Reportable 01/03/19 17:16 Not Reportable 01/03/19 17:16 Not Reportable 01/03/19 17:16 Not Reportable 01/03/19 17:16 Not Reportable 01/03/19 17:16 Consistent w auto 01/03/19 17:16 Not Reportable 01/03/19 17:16 Plt Clumps, EDTA Not Reportable 01/03/19 17:16 Not Reportable 01/03/19 17:16 Not Reportable 01/03/19 17:16 Not Reportable 01/03/19 17:16 Plt Morphology Comment Not Reportable 01/03/19 17:16 RBC Morphology Not Reportable 01/03/19 17:16 Dimorphic RBCs Not Reportable 01/03/19 17:16 Not Reportable 01/03/19 17:16 1+ 01/03/19 17:16 Few 01/03/19 17:16 1+ 01/03/19 17:16 Not Reportable 01/03/19 17:16 Not Reportable 01/03/19 17:16 Not Reportable 01/03/19 17:16 Not Reportable 01/03/19 17:16 Not Reportable 01/03/19 17:16 Few 01/03/19 17:16 Not Reportable 01/03/19 17:16 Few 01/03/19 17:16 Not Reportable 01/03/19 17:16 Not Reportable 01/03/19 17:16 Not Reportable 01/03/19 17:16 Not Reportable 01/03/19 17:16 Not Reportable 01/03/19 17:16 Not Reportable 01/03/19 17:16 Not Reportable 01/03/19 17:16 Acanthocytes (Spur) Not Reportable 01/03/19 17:16 Rouleaux Not Reportable 01/03/19 17:16 Not Reportable 01/03/19 17:16 Not Reportable 01/03/19 17:16 Not Reportable 01/03/19 17:16 Not Reportable 01/03/19 17:16 Hem Pathologist Commnt No 01/03/19 17:16 PT 18.0 Sec. (12.2-14.9) H 01/02/19 05:39 INR 1.39 (0.87-1.13) H 01/02/19 05:39 Sodium 133 mmol/L (137-145) L 01/19/19 Unknown Potassium 5.6 mmol/L (3.6-5.0) H 01/19/19 Unknown Chloride 97.2 mmol/L (98-107) L 01/19/19 Unknown Carbon Dioxide 29 mmol/L (22-30) 01/19/19 Unknown 12 mmol/L 01/19/19 Unknown BUN 29 mg/dL (9-20) H 01/19/19 Unknown 2.3 mg/dL (0.8-1.5) H 01/19/19 Unknown Estimated GFR 35 ml/min 01/19/19 Unknown 13 % 01/19/19 Unknown Glucose 105 mg/dL (75-100) H 01/19/19 Unknown POC Glucose 137 (70-105) H 01/19/19 12:00 < 4.2 % (4-6) 12/26/18 17:12 Lactic Acid 1.10 mmol/L (0.7-2.0) 12/27/18 07:04 Calcium 8.9 mg/dL (8.4-10.2) 01/19/19 Unknown Phosphorus 2.90 mg/dL (2.5-4.5) D 01/05/19 04:56 Magnesium 2.00 mg/dL (1.7-2.3) 01/05/19 04:56 0.20 mg/dL (0.1-1.2) 01/07/19 11:16 AST 12 units/L (5-40) 01/07/19 11:16 ALT < 5 units/L (7-56) L 01/07/19 11:16 92 units/L (35-129) 01/07/19 11:16 29 units/L (55-170) L 12/26/18 17:12 0.158 ng/mL (0.00-0.029) H* 12/26/18 17:12 5.7 g/dL (6.3-8.2) L 01/07/19 11:16 2.0 g/dL (3.9-5) L 01/07/19 11:16 0.5 % 01/07/19 11:16 Triglycerides 75 mg/dL (2-149) 12/26/18 17:12 Cholesterol 109 mg/dL (50-199) 12/26/18 17:12 43 mg/dL (50-130) L 12/26/18 17:12 41 mg/dL (40-59) 12/26/18 17:12 2.65 % 12/26/18 17:12 PTH Intact 178.6 pg/mL (15-65) H 01/01/19 17:32 Random Vancomycin 14.3 ug/mL (0-40.0) 01/15/19 10:57 Blood Type O POSITIVE 01/16/19 15:06 Antibody Screen Negative 01/16/19 15:06 Crossmatch See Detail 01/16/19 15:06 Active Medications - Current Medications Current Medications: Generic Name Dose Route Start Last Admin Trade Name Ismael PRN Reason Stop Dose Admin Acetaminophen 650 mg 12/26/18 21:40 01/10/19 18:33 Tylenol PO 650 mg Q4H PRN Administration Pain MILD(1-3)/Fever >100.5/HILL Lipase/Protease/Amylase 1 each 01/16/19 17:11 Pancreaze 10,500 Unit FEEDTUBE PRN PRN For Clogged Feeding Tube Aspirin 81 mg 12/27/18 10:00 01/19/19 14:05 Halfprin Ec PO 81 mg DAILY SANCHEZ Administration Epoetin Solitario 20,000 unit 01/05/19 11:03 01/19/19 12:34 Procrit IV 20,000 unit UMA PRN Administration hemodialysis Famotidine 20 mg 12/27/18 10:00 01/19/19 14:05 Pepcid PO 20 mg DAILY SANCHEZ Administration Folic Acid 1 mg 12/27/18 10:00 01/19/19 14:11 Folvite PO 1 mg DAILY SANCHEZ Administration Gabapentin 100 mg 12/26/18 22:00 01/18/19 21:08 Neurontin PO 100 mg QHS SANCHEZ Administration Hydralazine HCl 100 mg 12/26/18 22:00 01/19/19 14:10 Apresoline PO 100 mg Q8HR SANCHEZ Administration Meropenem 1,000 mg/ Sodium 100 mls @ 100 mls/hr 01/05/19 11:00 01/19/19 14:09 Chloride IV 02/16/19 10:59 100 mls/hr Q24HR SANCHEZ Administration Vancomycin HCl 1 gm in 250 mls @ 167.007 mls/hr 01/06/19 20:00 01/17/19 20:23 Vancomycin/Ns 1 Gm/250 Ml IV 02/17/19 21:30 167.007 mls/hr TuThSa SANCHEZ Administration Dextrose 1,000 mls @ 45 mls/hr 01/14/19 13:00 01/14/19 12:45 D5w IV 45 mls/hr DIRECT SANCHEZ Administration Sodium Chloride 100 mls @ 999 mls/hr 01/19/19 09:29 Nacl 0.9% IV UMA PRN Hypotension Insulin Human Regular 0 units 01/14/19 00:00 01/19/19 14:06 Humulin R SUB-Q Not Given Q6HR [facility] Protocol Metoprolol Tartrate 5 mg 12/27/18 18:55 12/29/18 05:41 Lopressor IV 5 mg Q5MIN PRN Administration increased heart rate Metoprolol Tartrate 100 mg 12/31/18 22:00 01/19/19 14:09 Lopressor PO Not Given BID SANCHEZ Ondansetron HCl 4 mg 12/26/18 21:40 01/10/19 12:23 Zofran IV 4 mg Q8H PRN Administration Nausea And Vomiting Oxycodone/Acetaminophen 1 tab 01/05/19 08:30 01/18/19 21:08 Percocet 5/325 PO 1 tab Q6H PRN Administration Pain, Moderate (4-6) Risperidone 0.5 mg 12/26/18 22:00 01/18/19 21:08 Risperdal PO 0.5 mg QHS SANCHEZ Administration Risperidone 1 mg 12/27/18 10:00 01/19/19 14:06 Risperdal PO 1 mg QAM SANCHEZ Administration Sertraline HCl 100 mg 12/27/18 10:00 01/19/19 14:05 Zoloft PO 100 mg QDAY SANCHEZ Administration Simple Syrup 15 ml 01/16/19 17:11 Simple Syrup FEEDTUBE PRN PRN Hypoglycemia Simple Syrup 30 ml 01/16/19 17:11 Simple Syrup FEEDTUBE PRN PRN Hypoglycemia Sodium Bicarbonate 325 mg 01/16/19 17:11 Sodium Bicarbonate FEEDTUBE PRN PRN For Clogged Feeding Tube Sodium Chloride 10 ml 12/26/18 22:00 01/19/19 14:06 Sodium Chloride Flush Syringe 10 Ml IV 10 ml BID SANCHEZ Administration Sodium Chloride 10 ml 12/26/18 21:40 01/16/19 21:00 Sodium Chloride Flush Syringe 10 Ml IV 10 ml PRN PRN Administration LINE FLUSH Sodium Hypochlorite 1 applic 01/19/19 10:00 Dakin's Half Strength TP QDAY [facility] Nutrition/Malnutrition Assess - Dietary Evaluation Nutrition/Malnutrition Findings: Nutrition Notes Start: 12/27/18 17:15 Freq: Status: Active Protocol: Document 01/16/19 17:08 RM (Rec: 01/16/19 17:11 RM [id number]) Nutrition Notes Initial or Follow up Reassessment Current Diagnosis CKD (stage V CKD),Diabetes, Sepsis,Hypertension Other Pertinent Diagnosis Hx CVA,S/P PEG, Sacral wound, FTT, acute encephalopathy Current Diet No diet ordered Labs/Tests Reviewed Pertinent Medications Reviewed Height 5 ft 7 in Weight 85.4 kg [place] Body Weight (kg) 67.27 BMI 29.5 Subjective/Other Information Observed Glucerna 1.2 infusing at goal rate. Percent of energy/protein needs met: 97%/100% Burn Absent Trauma Absent #2 Nutrition Diagnosis Increased nutrient needs ( specify in comment below) Diagnosis Progress(for reassessment Continues documentation) #1 Nutrition Diagnosis Inadequate oral intake Diagnosis Progress(for reassessment Continues documentation) Is patient on ventilator? No Is Patient Ambulatory and/or Out of Bed No REE-([facility]-confined to bed) 8.268 Calculation Used for Recommendations [facility] Additional Notes Pro needs 1.2-1.4g/k- 118g/day Fluid needs 1-1.5L/day Nutrition Intervention Nutrition Support: Glucerna 1.2 at 65 ml/hr. Water flush of 100 mls q 4 hrs . Kcal 1,872 Protein (gm) 94 Carbohydrates (gm) 179 Fat (gm) 94 Fluid (mL) 1,256 Fiber (gm) 25 Goal #1 Continue to meet at least 75% of calorie and protein needs via TF Anticipated Discharge Needs: Glucerna 1.2 Follow-Up By: 01/23/19 Additional Comments Follow for TF tolerance
[2019-01-19] MEDS: PERCOCET 5/325 PO PRN ×2 (16:37→22:53)
[2019-01-19] MEDS: DAKIN'S HALF STRENGTH TP SCH (16:58)
[2019-01-19] MEDS: NEURONTIN PO SCH (22:52)
[2019-01-20] MEDS: HumuLIN R SUB-Q SCH ×4 (01:25→18:39)
[2019-01-20] MEDS: APRESOLINE PO SCH ×2 (05:07→14:45)
[2019-01-20 05:36] LABS: Basophils # (Auto) 0.1 K/mm3 (0.0-0.1); Eosinophils # (Auto) 0.6 K/mm3 (0.0-0.4); Eosinophils % (Auto) 11.1 % (0.0-4.3); Hematocrit 27.8 % (35.5-45.6); Hemoglobin 9.1 gm/dl (11.8-15.2); Lymphocytes # (Auto) 0.9 K/mm3 (1.2-5.4); Lymphocytes % (Auto) 15.6 % (13.4-35.0); Mean Corpuscular HGB Conc 33 % (32-34); Mean Corpuscular Volume 90 fl (84-94); Monocytes # (Auto) 0.6 K/mm3 (0.0-0.8); Monocytes % (Auto) 10.7 % (0.0-7.3); Platelet Count 171 K/mm3 (140-440); Red Blood Count 3.08 M/mm3 (3.65-5.03); Red Cell Distribution Width 17.5 % (13.2-15.2)
[2019-01-20] MEDS: PERCOCET 5/325 PO PRN (05:37)
[2019-01-20 06:00] LABS: Calcium 8.6 mg/dL (8.4-10.2)
--- NOTE | 2019-01-20 08:45 | Progress Note ---
Assessment and Plan Impression: * End stage renal disease * Failure to thrive * Infected sacral decubitus ulcer * Schizophrenia * Chronic atrial fibrillation * Coronary artery disease * History of CVA * Hyponatremia * Anemia secondary to ESRD * Hyperkalemia Plan: * Continue TTS schedule - adjust K bath from 3K to 2K * UF as tolerated * Surgery recommendations reviewed * Abx per ID/primary team * Nutrition per primary team * Dose medications for renal function * Epogen TID prn Subjective Date of service: 01/20/19 Principal diagnosis: drop in H/H Interval history: Patient seen on dialysis Objective - Vital Signs Vital signs: Vital Signs - 12hr 01/19/19 01/19/19 01/20/19 22:51 23:53 05:02 Temperature 97.9 F 97.9 F Pulse Rate 95 H 91 H Respiratory 24 18 20 Rate Blood Pressure 132/72 111/67 O2 Sat by Pulse 100 94 Oximetry 01/20/19 01/20/19 05:37 06:37 Temperature Pulse Rate Respiratory 18 18 Rate Blood Pressure O2 Sat by Pulse Oximetry - General Appearance General appearance: well-developed, chronically ill EENT: ATNC Respiratory: Present: Clear to Ascultation Cardiology: regular, S1S2 Gastrointestinal: other (PEG, ostomy) Integumentary: warm and dry Musculoskeletal: other (no edema) Psychiatric: other (noverbal) - Lab 01/20/19 Unknown 01/20/19 Unknown Most recent lab results Calcium 8.6 mg/dL (8.4-10.2) 01/20/19 Unknown Phosphorus 2.90 mg/dL (2.5-4.5) D 01/05/19 04:56 Magnesium 2.00 mg/dL (1.7-2.3) 01/05/19 04:56 Medications & Allergies - Medications Allergies/Adverse Reactions: Allergies haloperidol [From Haldol] Adverse Reaction (Verified 03/13/18 12:10) Unknown haloperidol lactate [From Haldol] Adverse Reaction (Verified 03/13/18 12:10) Unknown Home Medications: Home Medications Medication Instructions Recorded Confirmed Last Taken Type risperiDONE [RisperDAL] 1 mg PO QAM 03/13/18 12/27/18 Unknown History Sertraline [Zoloft] 100 mg PO QDAY 08/26/18 12/27/18 Unknown History risperiDONE [RisperDAL] 0.5 mg PO HS 08/26/18 12/27/18 Unknown History Polyethylene Glycol 3350 [Miralax 17 gm PO QDAY #30 packet 11/05/18 12/27/18 U nknown Rx 3350] Aspirin EC 81 mg PO DAILY #30 11/19/18 12/27/18 Unknown Rx Docusate Sodium [Colace CAP] 100 mg PO BID #60 11/19/18 12/27/18 Unknown Rx Folic Acid [Folvite] 1 mg PO DAILY #30 tab 11/19/18 12/27/18 Unknown Rx Famotidine [Pepcid] 20 mg PO DAILY tablet 12/08/18 12/27/18 Unknown Rx Gabapentin [Neurontin] 100 mg PO QHS capsule 12/08/18 12/27/18 Unknown Rx Metoprolol [Lopressor TAB] 50 mg PO BID 30 Days tablet 12/08/18 12/27/18 Unknown Rx Sevelamer Carbonate [Renvela] 800 mg PO TIDWM tablet 12/08/18 12/27/18 Unknown Rx hydrALAZINE [Apresoline TAB] 100 mg PO Q8HR #120 tablet 12/08/18 12/27/18 Unknown Rx Acetaminophen [Acetaminophen TAB] 650 mg PO Q12H PRN 12/15/18 12/27/18 Unknown History Amino Acids/Protein Hydrolys 30 ml PO BID 12/15/18 12/27/18 Unknown History [Pro-Stat Sugar Free Liquid] Glucagon,Human Recombinant 1 mg IJ Q15MIN PRN 12/15/18 12/27/18 Unknown History [Glucagon Emergency Kit] Insulin Aspart [NovoLOG 100 See Protocol SQ QWEEK 12/15/18 12/27/18 Unknown History UNITS/ML VIAL] Epoetin Solitario 10,000 Unit [Procrit] 10,000 unit IV UMA PRN vial 12/18/18 12/27/18 Unknown Rx Lispro Insulin [HumaLOG] 0 unit SUB-Q ACHS units 12/18/18 12/27/18 Unknown Rx risperiDONE [RisperDAL] 0.5 mg PO QHS tablet 12/18/18 12/27/18 Unknown Rx Meropenem [Merrem] 1,000 mg IV Q24HR vial 01/16/19 Unknown Rx Active Medications: Generic Name Dose Route Start Last Admin Trade Name Freq PRN Reason Stop Dose Admin Acetaminophen 650 mg 12/26/18 21:40 01/10/19 18:33 Tylenol PO 650 mg Q4H PRN Administration Pain MILD(1-3)/Fever >100.5/HILL Lipase/Protease/Amylase 1 each 01/16/19 17:11 Pancrejewel Barrientos 10,500 Unit FEEDTUBE PRN PRN For Clogged Feeding Tube Aspirin 81 mg 12/27/18 10:00 01/19/19 14:05 Halfprin Ec PO 81 mg DAILY SANCHEZ Administration Epoetin Solitario 20,000 unit 01/05/19 11:03 01/19/19 12:34 Procrit IV 20,000 unit UMA PRN Administration hemodialysis Famotidine 20 mg 12/27/18 10:00 01/19/19 14:05 Pepcid PO 20 mg DAILY SANCHEZ Administration Folic Acid 1 mg 12/27/18 10:00 01/19/19 14:11 Folvite PO 1 mg DAILY SANCHEZ Administration Gabapentin 100 mg 12/26/18 22:00 01/19/19 22:52 Neurontin PO 100 mg QHS SANCHEZ Administration Hydralazine HCl 100 mg 12/26/18 22:00 01/20/19 05:07 Apresoline PO 100 mg Q8HR SANCHEZ Administration Meropenem 1,000 mg/ Sodium 100 mls @ 100 mls/hr 01/05/19 11:00 01/19/19 14:09 Chloride IV 02/16/19 10:59 100 mls/hr Q24HR SANCHEZ Administration Vancomycin HCl 1 gm in 250 mls @ 167.007 mls/hr 01/06/19 20:00 01/17/19 20:23 Vancomycin/Ns 1 Gm/250 Ml IV 02/17/19 21:30 167.007 mls/hr TuThSa SANCHEZ Administration Dextrose 1,000 mls @ 45 mls/hr 01/14/19 13:00 01/14/19 12:45 D5w IV 45 mls/hr DIRECT SANCHEZ Administration Sodium Chloride 100 mls @ 999 mls/hr 01/19/19 09:29 Nacl 0.9% IV UMA PRN Hypotension Insulin Human Regular 0 units 01/14/19 00:00 01/20/19 05:08 Humulin R SUB-Q Not Given Q6HR REPLACED BY [facility] Protocol Metoprolol Tartrate 5 mg 12/27/18 18:55 12/29/18 05:41 Lopressor IV 5 mg Q5MIN PRN Administration increased heart rate Metoprolol Tartrate 100 mg 12/31/18 22:00 01/19/19 22:53 Lopressor PO 100 mg BID SANCHEZ Administration Ondansetron HCl 4 mg 12/26/18 21:40 01/10/19 12:23 Zofran IV 4 mg Q8H PRN Administration Nausea And Vomiting Oxycodone/Acetaminophen 1 tab 01/05/19 08:30 01/20/19 05:37 Percocet 5/325 PO 1 tab Q6H PRN Administration Pain, Moderate (4-6) Risperidone 0.5 mg 12/26/18 22:00 01/19/19 22:53 Risperdal PO 0.5 mg QHS SANCHEZ Administration Risperidone 1 mg 12/27/18 10:00 01/19/19 14:06 Risperdal PO 1 mg QAM SANCHEZ Administration Sertraline HCl 100 mg 12/27/18 10:00 01/19/19 14:05 Zoloft PO 100 mg QDAY SANCHEZ Administration Simple Syrup 15 ml 01/16/19 17:11 Simple Syrup FEEDTUBE PRN PRN Hypoglycemia Simple Syrup 30 ml 01/16/19 17:11 Simple Syrup FEEDTUBE PRN PRN Hypoglycemia Sodium Bicarbonate 325 mg 01/16/19 17:11 Sodium Bicarbonate FEEDTUBE PRN PRN For Clogged Feeding Tube Sodium Chloride 10 ml 12/26/18 22:00 01/19/19 22:55 Sodium Chloride Flush Syringe 10 Ml IV 10 ml BID SANCHEZ Administration Sodium Chloride 10 ml 12/26/18 21:40 01/16/19 21:00 Sodium Chloride Flush Syringe 10 Ml IV 10 ml PRN PRN Administration LINE FLUSH Sodium Hypochlorite 1 applic 01/19/19 10:00 01/19/19 16:58 Dakin's Half Strength TP 1 applicatio QDAY SANCHEZ Administration
--- NOTE | 2019-01-20 09:13 | Progress Note ---
Assessment and Plan Assessment and plan: Patient is a 63-year-old -[place] man from [facility] with a plethora of co-morbidities including blindness, CVA, CHF, PPM/ICD, loop recorder since 2013 that is MRI compatible, IDDM type 2, sepsis left foot ulcer, afib, ESRD with complications on HD TTS, hypertension, AOCD and GERD who presented to [facility] with altered sensorium and decreased responsiveness. Decreased responsive and not eating at all for 2 days. Patient has failure to thrive, altered mentation and weight loss of 20 pounds since 12/08/2018. Severe Sepsis due to Necrotizing Unstagable sacral decubitus ulcer with ostemomylitis s/p OR on 01/01/2019 for open excisional debridement of necrotic and infected sacral wound noted a large amount of necrotic tissue debrided and two abscess cavities at the caudad portion of the wound with a copious amount of purulent drainage which was drained. Wound cultures 01/02/2019 ESBL Kleb, MDR Ecoli and E raffinosus resistant to penicillin: On meropenam and vanc per ID. Consult Vascular surgery for central line placement, planned for diverting colostomy, family has agreed, Cardiology re-evaluated for surgery, input noted, high CV risk. d/w Dr. Villela, Vascular surgery placed central line placement for Merem, 01/08/19 Further debridement done 01/14/19 pateint noted to have lost over 150cc Of blood during this procedure. Acute on chronic Anemia of AOCD: Continue epoetin, total of 8 units PRBC, follow cbc- no occult GI bleed noted. GI input noted, No retroperitoneal bleed noted. Although 150cc Of blood loss documented during debridement No further bleeding from sacral wound noted Dakins moistened kerlex packing started Pt is s/p x1 DDVAP Acute metabolic encephalopathy due to the above Acute systolic exacerbation of CHF (congestive heart failure): treat via Ultrafiltration during HD Afib with RVR: rate control only and optimize meds per Cardiology ESRD needing dialysis: Nephology is managing, Continue hemo dialysis Insulin dependent diabetes mellitus, A1c is 4.2: insulin was dc Severe malnutrition with FTT: 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, cont oral diet, sizer hand input appreciated, PEG tube placed on 01/02/19 Hypertension: Continue antihypertensives h/o Peripheral neuropathy: Continue gabapentin Elevated troponin, Secondary to end-stage renal disease, chf and afib, Cardiology input appreciated DVT prophylaxis On heparin and GI prophylaxis Poor prognosis discussed with family member Mr Jennifer Mims. Per discussion with Surgery and as documented by them "Very poor prognosis for wound healing. I do not feel wound will ever heal due to extensive nature, poor nutrition, bedbound status, among other comorbidities. Recommend hospice." Family not accepting at this time. Ok to dc to NH when bed available. Would hold off on vac and continue dakins dressings to wound. May follow up in wound care center after dc. Discussed with case management. Awaiting placement History Interval history: No fever Hospitalist Physical - Physical exam Narrative exam: Gen: Not in acute distress, lying in bed,obese,ill looking HEENT: Normocephalic, atraumatic Neck: supple, no JVD Heart: S1 and S2 reg, no murmurs, rubs or gallop Lungs: Clear, no crackles, no wheeze Abd: soft, non tender, non distended, normal BS, PEg tube Ext: Contracted, no clubbing, no cyanosis, Sacrum: sacral decub ulcer Neuro: Lethargic - Constitutional Vitals: Temp Pulse Resp BP Pulse Ox 97.9 F 91 H 18 111/67 94 01/20/19 05:02 01/20/19 05:02 01/20/19 06:37 01/20/19 05:02 01/20/19 05:02 General appearance: Present: no acute distress Results - Labs CBC & Chem 7: 01/20/19 Unknown 01/20/19 Unknown Labs: Laboratory Last Values WBC 5.7 K/mm3 (4.5-11.0) 01/20/19 Unknown RBC 3.08 M/mm3 (3.65-5.03) L 01/20/19 Unknown Hgb 9.1 gm/dl (11.8-15.2) L 01/20/19 Unknown Hct 27.8 % (35.5-45.6) L 01/20/19 Unknown MCV 90 fl (84-94) 01/20/19 Unknown MCH 30 pg (28-32) 01/20/19 Unknown MCHC 33 % (32-34) 01/20/19 Unknown RDW 17.5 % (13.2-15.2) H 01/20/19 Unknown Plt Count 171 K/mm3 (140-440) 01/20/19 Unknown Lymph % (Auto) 15.6 % (13.4-35.0) 01/20/19 Unknown [place] % (Auto) 10.7 % (0.0-7.3) H 01/20/19 Unknown Eos % (Auto) 11.1 % (0.0-4.3) H 01/20/19 Unknown Baso % (Auto) 2.0 % (0.0-1.8) H 01/20/19 Unknown Lymph # 0.9 K/mm3 (1.2-5.4) L 01/20/19 Unknown [place] # 0.6 K/mm3 (0.0-0.8) 01/20/19 Unknown Eos # 0.6 K/mm3 (0.0-0.4) H 01/20/19 Unknown Baso # 0.1 K/mm3 (0.0-0.1) 01/20/19 Unknown Add Manual Diff Complete 01/03/19 17:16 Total Counted 100 01/03/19 17:16 Seg Neutrophils % 60.6 % (40.0-70.0) 01/20/19 Unknown Seg Neuts % (Manual) 96.0 % (40.0-70.0) H 01/03/19 17:16 0 % 01/03/19 17:16 2.0 % (13.4-35.0) L 01/03/19 17:16 Reactive Lymphs % (Man) 0 % 01/03/19 17:16 2.0 % (0.0-7.3) 01/03/19 17:16 0 % (0.0-4.3) 01/03/19 17:16 0 % (0.0-1.8) 01/03/19 17:16 0 % 01/03/19 17:16 0 % 01/03/19 17:16 0 % 01/03/19 17:16 0 % 01/03/19 17:16 Nucleated RBC % Not Reportable 01/03/19 17:16 Seg Neutrophils # 3.4 K/mm3 (1.8-7.7) 01/20/19 Unknown Seg Neutrophils # Man 10.8 K/mm3 (1.8-7.7) H 01/03/19 17:16 Band Neutrophils # 0.0 K/mm3 01/03/19 17:16 0.2 K/mm3 (1.2-5.4) L 01/03/19 17:16 Abs React Lymphs (Man) 0.0 K/mm3 01/03/19 17:16 0.2 K/mm3 (0.0-0.8) 01/03/19 17:16 0.0 K/mm3 (0.0-0.4) 01/03/19 17:16 0.0 K/mm3 (0.0-0.1) 01/03/19 17:16 0.0 K/mm3 01/03/19 17:16 0.0 K/mm3 01/03/19 17:16 0.0 K/mm3 01/03/19 17:16 Blast Cells # 0.0 K/mm3 01/03/19 17:16 WBC Morphology Not Reportable 01/03/19 17:16 Hypersegmented Neuts Not Reportable 01/03/19 17:16 Hyposegmented Neuts Not Reportable 01/03/19 17:16 Hypogranular Neuts Not Reportable 01/03/19 17:16 Not Reportable 01/03/19 17:16 Not Reportable 01/03/19 17:16 Not Reportable 01/03/19 17:16 Not Reportable 01/03/19 17:16 Not Reportable 01/03/19 17:16 Not Reportable 01/03/19 17:16 Consistent w auto 01/03/19 17:16 Not Reportable 01/03/19 17:16 Plt Clumps, EDTA Not Reportable 01/03/19 17:16 Not Reportable 01/03/19 17:16 Not Reportable 01/03/19 17:16 Not Reportable 01/03/19 17:16 Plt Morphology Comment Not Reportable 01/03/19 17:16 RBC Morphology Not Reportable 01/03/19 17:16 Dimorphic RBCs Not Reportable 01/03/19 17:16 Not Reportable 01/03/19 17:16 1+ 01/03/19 17:16 Few 01/03/19 17:16 1+ 01/03/19 17:16 Not Reportable 01/03/19 17:16 Not Reportable 01/03/19 17:16 Not Reportable 01/03/19 17:16 Not Reportable 01/03/19 17:16 Not Reportable 01/03/19 17:16 Few 01/03/19 17:16 Not Reportable 01/03/19 17:16 Few 01/03/19 17:16 Not Reportable 01/03/19 17:16 Not Reportable 01/03/19 17:16 Not Reportable 01/03/19 17:16 Not Reportable 01/03/19 17:16 Not Reportable 01/03/19 17:16 Not Reportable 01/03/19 17:16 Not Reportable 01/03/19 17:16 Acanthocytes (Spur) Not Reportable 01/03/19 17:16 Rouleaux Not Reportable 01/03/19 17:16 Not Reportable 01/03/19 17:16 Not Reportable 01/03/19 17:16 Not Reportable 01/03/19 17:16 Not Reportable 01/03/19 17:16 Hem Pathologist Commnt No 01/03/19 17:16 PT 18.0 Sec. (12.2-14.9) H 01/02/19 05:39 INR 1.39 (0.87-1.13) H 01/02/19 05:39 Sodium 136 mmol/L (137-145) L 01/20/19 Unknown Potassium 5.5 mmol/L (3.6-5.0) H 01/20/19 Unknown Chloride 98.3 mmol/L (98-107) 01/20/19 Unknown Carbon Dioxide 30 mmol/L (22-30) 01/20/19 Unknown 13 mmol/L 01/20/19 Unknown BUN 25 mg/dL (9-20) H 01/20/19 Unknown 2.2 mg/dL (0.8-1.5) H 01/20/19 Unknown Estimated GFR 37 ml/min 01/20/19 Unknown 11 % 01/20/19 Unknown Glucose 94 mg/dL (75-100) 01/20/19 Unknown POC Glucose 86 (70-105) 01/20/19 05:10 < 4.2 % (4-6) 12/26/18 17:12 Lactic Acid 1.10 mmol/L (0.7-2.0) 12/27/18 07:04 Calcium 8.6 mg/dL (8.4-10.2) 01/20/19 Unknown Phosphorus 2.90 mg/dL (2.5-4.5) D 01/05/19 04:56 Magnesium 2.00 mg/dL (1.7-2.3) 01/05/19 04:56 0.20 mg/dL (0.1-1.2) 01/07/19 11:16 AST 12 units/L (5-40) 01/07/19 11:16 ALT < 5 units/L (7-56) L 01/07/19 11:16 92 units/L (35-129) 01/07/19 11:16 29 units/L (55-170) L 12/26/18 17:12 0.158 ng/mL (0.00-0.029) H* 12/26/18 17:12 5.7 g/dL (6.3-8.2) L 01/07/19 11:16 2.0 g/dL (3.9-5) L 01/07/19 11:16 0.5 % 01/07/19 11:16 Triglycerides 75 mg/dL (2-149) 12/26/18 17:12 Cholesterol 109 mg/dL (50-199) 12/26/18 17:12 43 mg/dL (50-130) L 12/26/18 17:12 41 mg/dL (40-59) 12/26/18 17:12 2.65 % 12/26/18 17:12 PTH Intact 178.6 pg/mL (15-65) H 01/01/19 17:32 Random Vancomycin 14.3 ug/mL (0-40.0) 01/15/19 10:57 Blood Type O POSITIVE 01/16/19 15:06 Antibody Screen Negative 01/16/19 15:06 Crossmatch See Detail 01/16/19 15:06 Active Medications - Current Medications Current Medications: Generic Name Dose Route Start Last Admin Trade Name Freq PRN Reason Stop Dose Admin Acetaminophen 650 mg 12/26/18 21:40 01/10/19 18:33 Tylenol PO 650 mg Q4H PRN Administration Pain MILD(1-3)/Fever >100.5/HILL Lipase/Protease/Amylase 1 each 01/16/19 17:11 Pancreaze 10,500 Unit FEEDTUBE PRN PRN For Clogged Feeding Tube Aspirin 81 mg 12/27/18 10:00 01/19/19 14:05 Halfprin Ec PO 81 mg DAILY SANCHEZ Administration Epoetin Solitario 20,000 unit 01/05/19 11:03 01/19/19 12:34 Procrit IV 20,000 unit UMA PRN Administration hemodialysis Famotidine 20 mg 12/27/18 10:00 01/19/19 14:05 Pepcid PO 20 mg DAILY SANCHEZ Administration Folic Acid 1 mg 12/27/18 10:00 01/19/19 14:11 Folvite PO 1 mg DAILY SANCHEZ Administration Gabapentin 100 mg 12/26/18 22:00 01/19/19 22:52 Neurontin PO 100 mg QHS SANCHEZ Administration Hydralazine HCl 100 mg 12/26/18 22:00 01/20/19 05:07 Apresoline PO 100 mg Q8HR SANCHEZ Administration Meropenem 1,000 mg/ Sodium 100 mls @ 100 mls/hr 01/05/19 11:00 01/19/19 14:09 Chloride IV 02/16/19 10:59 100 mls/hr Q24HR SANCHEZ Administration Vancomycin HCl 1 gm in 250 mls @ 167.007 mls/hr 01/06/19 20:00 01/17/19 20:23 Vancomycin/Ns 1 Gm/250 Ml IV 02/17/19 21:30 167.007 mls/hr TuThSa SANCHEZ Administration Dextrose 1,000 mls @ 45 mls/hr 01/14/19 13:00 01/14/19 12:45 D5w IV 45 mls/hr DIRECT SANCHEZ Administration Sodium Chloride 100 mls @ 999 mls/hr 01/19/19 09:29 Nacl 0.9% IV UMA PRN Hypotension Insulin Human Regular 0 units 01/14/19 00:00 01/20/19 05:08 Humulin R SUB-Q Not Given Q6HR [facility] Protocol Metoprolol Tartrate 5 mg 12/27/18 18:55 12/29/18 05:41 Lopressor IV 5 mg Q5MIN PRN Administration increased heart rate Metoprolol Tartrate 100 mg 12/31/18 22:00 01/19/19 22:53 Lopressor PO 100 mg BID SANCHEZ Administration Ondansetron HCl 4 mg 12/26/18 21:40 01/10/19 12:23 Zofran IV 4 mg Q8H PRN Administration Nausea And Vomiting Oxycodone/Acetaminophen 1 tab 01/05/19 08:30 01/20/19 05:37 Percocet 5/325 PO 1 tab Q6H PRN Administration Pain, Moderate (4-6) Risperidone 0.5 mg 12/26/18 22:00 01/19/19 22:53 Risperdal PO 0.5 mg QHS SANCHEZ Administration Risperidone 1 mg 12/27/18 10:00 01/19/19 14:06 Risperdal PO 1 mg QAM SANCHEZ Administration Sertraline HCl 100 mg 12/27/18 10:00 01/19/19 14:05 Zoloft PO 100 mg QDAY SANCHEZ Administration Simple Syrup 15 ml 01/16/19 17:11 Simple Syrup FEEDTUBE PRN PRN Hypoglycemia Simple Syrup 30 ml 01/16/19 17:11 Simple Syrup FEEDTUBE PRN PRN Hypoglycemia Sodium Bicarbonate 325 mg 01/16/19 17:11 Sodium Bicarbonate FEEDTUBE PRN PRN For Clogged Feeding Tube Sodium Chloride 10 ml 12/26/18 22:00 01/19/19 22:55 Sodium Chloride Flush Syringe 10 Ml IV 10 ml BID SANCHEZ Administration Sodium Chloride 10 ml 12/26/18 21:40 01/16/19 21:00 Sodium Chloride Flush Syringe 10 Ml IV 10 ml PRN PRN Administration LINE FLUSH Sodium Hypochlorite 1 applic 01/19/19 10:00 01/19/19 16:58 Dakin's Half Strength TP 1 applicatio QDAY SANCHEZ Administration Nutrition/Malnutrition Assess - Dietary Evaluation Nutrition/Malnutrition Findings: Nutrition Notes Start: 12/27/18 17:15 Freq: Status: Active Protocol: Document 01/16/19 17:08 RM (Rec: 01/16/19 17:11 [email or web address]) Nutrition Notes Initial or Follow up Reassessment Current Diagnosis CKD (stage V CKD),Diabetes, Sepsis,Hypertension Other Pertinent Diagnosis Hx CVA,S/P PEG, Sacral wound, FTT, acute encephalopathy Current Diet No diet ordered Labs/Tests Reviewed Pertinent Medications Reviewed Height 5 ft 7 in Weight 85.4 kg [place] Body Weight (kg) 67.27 BMI 29.5 Subjective/Other Information Observed Glucerna 1.2 infusing at goal rate. Percent of energy/protein needs met: 97%/100% Burn Absent Trauma Absent #2 Nutrition Diagnosis Increased nutrient needs ( specify in comment below) Diagnosis Progress(for reassessment Continues documentation) #1 Nutrition Diagnosis Inadequate oral intake Diagnosis Progress(for reassessment Continues documentation) Is patient on ventilator? No Is Patient Ambulatory and/or Out of Bed No REE-([facility]-confined to bed) [phone] Calculation Used for Recommendations [facility] Additional Notes Pro needs 1.2-1.4g/k- 118g/day Fluid needs 1-1.5L/day Nutrition Intervention Nutrition Support: Glucerna 1.2 at 65 ml/hr. Water flush of 100 mls q 4 hrs . Kcal 1,872 Protein (gm) 94 Carbohydrates (gm) 179 Fat (gm) 94 Fluid (mL) 1,256 Fiber (gm) 25 Goal #1 Continue to meet at least 75% of calorie and protein needs via TF Anticipated Discharge Needs: Glucerna 1.2 Follow-Up By: 01/23/19 Additional Comments Follow for TF tolerance
[2019-01-20] MEDS: MERREM 1,000 MG in NACL 0.9% 100 ML IV SCH (10:00)
[2019-01-20] MEDS: HALFPRIN EC PO SCH (10:09)
[2019-01-20] MEDS: RisperDAL PO SCH ×2 (10:09→21:36)
[2019-01-20] MEDS: PEPCID PO SCH (10:09)
[2019-01-20] MEDS: SODIUM CHLORIDE FLUSH SYRINGE 10 ML IV SCH ×2 (10:10→21:37)
[2019-01-20] MEDS: LOPRESSOR PO SCH ×2 (10:10→21:35)
[2019-01-20] MEDS: FOLVITE PO SCH (10:10)
[2019-01-20] MEDS: ZOLOFT PO SCH (10:10)
[2019-01-20] MEDS: DAKIN'S HALF STRENGTH TP SCH (10:15)
[2019-01-20] MEDS: PROCRIT IV PRN (11:59)
[2019-01-20] MEDS: NEURONTIN PO SCH (21:36)
[2019-01-20] MEDS: VANCOMYCIN/NS 1 GM/250 ML 1 GM/250 ML BAG IV SCH (21:36)
[2019-01-21] MEDS: APRESOLINE PO SCH ×4 (00:41→21:12)
[2019-01-21] MEDS: HumuLIN R SUB-Q SCH ×4 (00:42→18:37)
[2019-01-21] MEDS ORDERED: NITROSTAT SL ONE (04:04)
[2019-01-21] MEDS: NITROSTAT SL PRN ×2 (04:10→04:15)
[2019-01-21] MEDS: MORPHINE IV PRN (04:22)
[2019-01-21 04:50] LABS: Basophils # (Auto) 0.1 K/mm3 (0.0-0.1); Eosinophils # (Auto) 0.4 K/mm3 (0.0-0.4); Eosinophils % (Auto) 7.1 % (0.0-4.3); Hematocrit 29.1 % (35.5-45.6); Hemoglobin 9.6 gm/dl (11.8-15.2); Lymphocytes # (Auto) 1.1 K/mm3 (1.2-5.4); Lymphocytes % (Auto) 16.8 % (13.4-35.0); Mean Corpuscular HGB Conc 33 % (32-34); Mean Corpuscular Volume 90 fl (84-94); Monocytes # (Auto) 0.7 K/mm3 (0.0-0.8); Monocytes % (Auto) 11.7 % (0.0-7.3); Platelet Count 193 K/mm3 (140-440); Red Blood Count 3.25 M/mm3 (3.65-5.03); Red Cell Distribution Width 17.8 % (13.2-15.2)
[2019-01-21 05:13] LABS: Calcium 9.1 mg/dL (8.4-10.2)
[2019-01-21 05:57] LABS: Chol/HDL Ratio 2.37 %
--- NOTE | 2019-01-21 06:40 | Event Note ---
Date: 01/21/19 Patient complained of chest pain. He was given nitroglycerin 3, and morphine with relief. Stat EKG and troponin ordered. EKG showed atrial flutter with 2:1 AV block. Patient was previously in atrial fibrillation. Troponin resulted at 0.204. Consult placed to cardiology. Will continue to trend troponin.
--- NOTE | 2019-01-21 10:23 | Progress Note ---
Assessment and Plan Cardiology has been asked to reevaluate pt due to complaints of chest pain overnight per the chart and also pt was noted to have AFib/AFlutter with HR 120s overnight. On evaluation, pt appears comfortable and denies any occurrence of chest pain overnight. He remains in AFib/AFlutter (which is chronic) with HR 100s - 120s. Optimize HR - initiate cardizem, cont lopressor. No long-term AC in setting of dementia, anemia, thrombocytopenia, and multiple co-morbidities. The patient has been seen in conjunction with Dr. Modi who agrees with the assessment and plan of care. - Patient Problems (1) Atrial fibrillation Current Visit: Yes Status: Chronic (2) History of loop recorder Current Visit: Yes Status: Chronic (3) Cardiomyopathy Current Visit: Yes Status: Chronic (4) Altered mental status Current Visit: Yes Status: Acute Qualifiers: Altered mental status type: unspecified Qualified Code(s): R41.82 - Altered mental status, unspecified (5) ESRD (end stage renal disease) on dialysis Current Visit: Yes Status: Chronic (6) Diabetes Current Visit: Yes Status: Chronic (7) History of CVA (cerebrovascular accident) Current Visit: Yes Status: Chronic (8) Legally blind Current Visit: Yes Status: Chronic (9) Anemia Current Visit: Yes Status: Chronic Qualifiers: Anemia type: unspecified type Qualified Code(s): D64.9 - Anemia, unspecified (10) Thrombocytopenia Current Visit: Yes Status: Chronic (11) NSTEMI (non-ST elevated myocardial infarction) Current Visit: Yes Status: Acute Plan to address problem: type II Subjective Date of service: 01/21/19 Principal diagnosis: afib Interval history: pt resting in bed, no apparent distress, no current complaints. in AFib/AFlutter with HR 100s - 120s. Objective Last Vital Signs Temp 99.2 F 01/21/19 03:55 Pulse 109 H 01/21/19 06:56 Resp 18 01/21/19 06:56 BP 139/80 01/21/19 06:56 Pulse Ox 100 01/21/19 06:56 - Physical Examination General: No Apparent Distress Cardiac: Positive: irregularly irregular, S1/S2 Lungs: Positive: Decreased Breath Sounds Neuro: Positive: Other (nonverbal) Skin: Negative: Rash Extremities: Absent: edema - Labs and Meds Lipids 01/21/19 Range/Units 04:23 Triglycerides 46 (2-149) mg/dL Cholesterol 64 (50-199) mg/dL HDL Cholesterol 27 L (40-59) mg/dL Cholesterol/HDL Ratio 2.37 % CBC 01/21/19 Range/Units 04:23 WBC 6.3 (4.5-11.0) K/mm3 RBC 3.25 L (3.65-5.03) M/mm3 Hgb 9.6 L (11.8-15.2) gm/dl Hct 29.1 L (35.5-45.6) % Plt Count 193 (140-440) K/mm3 Lymph # 1.1 L (1.2-5.4) K/mm3 [place] # 0.7 (0.0-0.8) K/mm3 Eos # 0.4 (0.0-0.4) K/mm3 Baso # 0.1 (0.0-0.1) K/mm3 Comprehensive Metabolic Panel 01/21/19 Range/Units 04:23 Sodium 137 (137-145) mmol/L Potassium 4.8 (3.6-5.0) mmol/L Chloride 101.3 (98-107) mmol/L Carbon Dioxide 30 (22-30) mmol/L BUN 19 (9-20) mg/dL Creatinine 1.7 H (0.8-1.5) mg/dL Glucose 98 (75-100) mg/dL Calcium 9.1 (8.4-10.2) mg/dL - Imaging and Cardiology EKG: report reviewed, image reviewed Echo: report reviewed (Echo done 12/16/2018 showed EF 35-40%, mild LVH, RV sys tolic function mod reduced, RA mildly dilated, pulm HTN with RVSP 53mmHg, large pleural effusion, markedly increased RA pressure. )
[2019-01-21] MEDS: PEPCID PO SCH (11:33)
[2019-01-21] MEDS: RisperDAL PO SCH ×2 (11:34→21:08)
[2019-01-21] MEDS: ZOLOFT PO SCH (11:34)
[2019-01-21] MEDS: FOLVITE PO SCH (11:34)
[2019-01-21] MEDS: LOPRESSOR PO SCH ×2 (11:34→21:11)
[2019-01-21] MEDS: HALFPRIN EC PO SCH (11:34)
[2019-01-21] MEDS: DAKIN'S HALF STRENGTH TP SCH (11:35)
[2019-01-21] MEDS: SODIUM CHLORIDE FLUSH SYRINGE 10 ML IV SCH ×2 (11:35→21:09)
--- NOTE | 2019-01-21 11:45 | Progress Note ---
Assessment and Plan Assessment and plan: Patient is a 63-year-old -Serbian man from [facility] with a plethora of co-morbidities including blindness, CVA, CHF, PPM/ICD, loop recorder since 2013 that is MRI compatible, IDDM type 2, sepsis left foot ulcer, afib, ESRD with complications on HD TTS, hypertension, AOCD and GERD who presented to [facility] with altered sensorium and decreased responsiveness. Decreased responsive and not eating at all for 2 days. Patient has failure to thrive, altered mentation and weight loss of 20 pounds since 12/08/2018. Severe Sepsis due to Necrotizing Unstagable sacral decubitus ulcer with ostemomylitis s/p OR on 01/01/2019 for open excisional debridement of necrotic and infected sacral wound noted a large amount of necrotic tissue debrided and two abscess cavities at the caudad portion of the wound with a copious amount of purulent drainage which was drained. Wound cultures 01/02/2019 ESBL Kleb, MDR Ecoli and E raffinosus resistant to penicillin: On meropenam and vanc per ID. Consult Vascular surgery for central line placement, planned for diverting colostomy, family has agreed, Cardiology re-evaluated for surgery, input noted, high CV risk. d/w Dr. Villela, Vascular surgery placed central line placement for Merem, 01/08/19 Further debridement done 01/14/19 pateint noted to have lost over 150cc Of blood during this procedure. Acute on chronic Anemia of AOCD: Continue epoetin, total of 8 units PRBC, follow cbc- no occult GI bleed noted. GI input noted, No retroperitoneal bleed noted. Although 150cc Of blood loss documented during debridement No further bleeding from sacral wound noted Dakins moistened kerlex packing started Pt is s/p x1 DDVAP Chest pain, resolved Acute metabolic encephalopathy due to the above Acute systolic exacerbation of CHF (congestive heart failure): treat via Ultrafiltration during HD Afib with RVR: rate control only and optimize meds per Cardiology ESRD needing dialysis: Nephology is managing, Continue hemo dialysis Insulin dependent diabetes mellitus, A1c is 4.2: insulin was dc Severe malnutrition with FTT: 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, cont oral diet, environmental health safety engineer input appreciated, PEG tube placed on 01/02/19 Hypertension: Continue antihypertensives h/o Peripheral neuropathy: Continue gabapentin Elevated troponin, Secondary to end-stage renal disease, chf and afib, Cardiolog y input appreciated DVT prophylaxis On heparin and GI prophylaxis Poor prognosis discussed with family member Mr Jennifer Mims. Per discussion with Surgery and as documented by them "Very poor prognosis for wound healing. I do not feel wound will ever heal due to extensive nature, poor nutrition, bedbound status, among other comorbidities. Recommend hospice." Family not accepting at this time. Ok to dc to NH when bed available. Would hold off on vac and continue dakins dressings to wound. May follow up in wound care center after dc. Discussed with case management. Awaiting placement History Interval history: Last night c/o chest pain, now resolved Hospitalist Physical - Physical exam Narrative exam: Gen: Not in acute distress, lying in bed,obese,ill looking HEENT: Normocephalic, atraumatic Neck: supple, no JVD Heart: S1 and S2 reg, no murmurs, rubs or gallop Lungs: Clear, no crackles, no wheeze Abd: soft, non tender, non distended, normal BS, PEg tube Ext: Contracted, no clubbing, no cyanosis, Sacrum: sacral decub ulcer Neuro: Lethargic, - Constitutional Vitals: Temp Pulse Resp BP Pulse Ox 99.2 F 108 H 18 139/80 100 01/21/19 03:55 01/21/19 10:00 01/21/19 06:56 01/21/19 06:56 01/21/19 06:56 General appearance: Present: no acute distress Results - Labs CBC & Chem 7: 01/21/19 04:23 01/21/19 04:23 Labs: Laboratory Last Values WBC 6.3 K/mm3 (4.5-11.0) 01/21/19 04:23 RBC 3.25 M/mm3 (3.65-5.03) L 01/21/19 04:23 Hgb 9.6 gm/dl (11.8-15.2) L 01/21/19 04:23 Hct 29.1 % (35.5-45.6) L 01/21/19 04:23 MCV 90 fl (84-94) 01/21/19 04:23 MCH 30 pg (28-32) 01/21/19 04:23 MCHC 33 % (32-34) 01/21/19 04:23 RDW 17.8 % (13.2-15.2) H 01/21/19 04:23 Plt Count 193 K/mm3 (140-440) 01/21/19 04:23 Lymph % (Auto) 16.8 % (13.4-35.0) 01/21/19 04:23 Laurel % (Auto) 11.7 % (0.0-7.3) H 01/21/19 04:23 Eos % (Auto) 7.1 % (0.0-4.3) H 01/21/19 04:23 Baso % (Auto) 2.0 % (0.0-1.8) H 01/21/19 04:23 Lymph # 1.1 K/mm3 (1.2-5.4) L 01/21/19 04:23 Laurel # 0.7 K/mm3 (0.0-0.8) 01/21/19 04:23 Eos # 0.4 K/mm3 (0.0-0.4) 01/21/19 04:23 Baso # 0.1 K/mm3 (0.0-0.1) 01/21/19 04:23 Add Manual Diff Complete 01/03/19 17:16 Total Counted 100 01/03/19 17:16 Seg Neutrophils % 62.4 % (40.0-70.0) 01/21/19 04:23 Seg Neuts % (Manual) 96.0 % (40.0-70.0) H 01/03/19 17:16 0 % 01/03/19 17:16 2.0 % (13.4-35.0) L 01/03/19 17:16 Reactive Lymphs % (Man) 0 % 01/03/19 17:16 2.0 % (0.0-7.3) 01/03/19 17:16 0 % (0.0-4.3) 01/03/19 17:16 0 % (0.0-1.8) 01/03/19 17:16 0 % 01/03/19 17:16 0 % 01/03/19 17:16 0 % 01/03/19 17:16 0 % 01/03/19 17:16 Nucleated RBC % Not Reportable 01/03/19 17:16 Seg Neutrophils # 4.0 K/mm3 (1.8-7.7) 01/21/19 04:23 Seg Neutrophils # Man 10.8 K/mm3 (1.8-7.7) H 01/03/19 17:16 Band Neutrophils # 0.0 K/mm3 01/03/19 17:16 0.2 K/mm3 (1.2-5.4) L 01/03/19 17:16 Abs React Lymphs (Man) 0.0 K/mm3 01/03/19 17:16 0.2 K/mm3 (0.0-0.8) 01/03/19 17:16 0.0 K/mm3 (0.0-0.4) 01/03/19 17:16 0.0 K/mm3 (0.0-0.1) 01/03/19 17:16 0.0 K/mm3 01/03/19 17:16 0.0 K/mm3 01/03/19 17:16 0.0 K/mm3 01/03/19 17:16 Blast Cells # 0.0 K/mm3 01/03/19 17:16 WBC Morphology Not Reportable 01/03/19 17:16 Hypersegmented Neuts Not Reportable 01/03/19 17:16 Hyposegmented Neuts Not Reportable 01/03/19 17:16 Hypogranular Neuts Not Reportable 01/03/19 17:16 Not Reportable 01/03/19 17:16 Not Reportable 01/03/19 17:16 Not Reportable 01/03/19 17:16 Not Reportable 01/03/19 17:16 Not Reportable 01/03/19 17:16 Not Reportable 01/03/19 17:16 Consistent w auto 01/03/19 17:16 Not Reportable 01/03/19 17:16 Plt Clumps, EDTA Not Reportable 01/03/19 17:16 Not Reportable 01/03/19 17:16 Not Reportable 01/03/19 17:16 Not Reportable 01/03/19 17:16 Plt Morphology Comment Not Reportable 01/03/19 17:16 RBC Morphology Not Reportable 01/03/19 17:16 Dimorphic RBCs Not Reportable 01/03/19 17:16 Not Reportable 01/03/19 17:16 1+ 01/03/19 17:16 Few 01/03/19 17:16 1+ 01/03/19 17:16 Not Reportable 01/03/19 17:16 Not Reportable 01/03/19 17:16 Not Reportable 01/03/19 17:16 Not Reportable 01/03/19 17:16 Not Reportable 01/03/19 17:16 Few 01/03/19 17:16 Not Reportable 01/03/19 17:16 Few 01/03/19 17:16 Not Reportable 01/03/19 17:16 Not Reportable 01/03/19 17:16 Not Reportable 01/03/19 17:16 Not Reportable 01/03/19 17:16 Not Reportable 01/03/19 17:16 Not Reportable 01/03/19 17:16 Not Reportable 01/03/19 17:16 Acanthocytes (Spur) Not Reportable 01/03/19 17:16 Rouleaux Not Reportable 01/03/19 17:16 Not Reportable 01/03/19 17:16 Not Reportable 01/03/19 17:16 Not Reportable 01/03/19 17:16 Not Reportable 01/03/19 17:16 Hem Pathologist Commnt No 01/03/19 17:16 PT 18.0 Sec. (12.2-14.9) H 01/02/19 05:39 INR 1.39 (0.87-1.13) H 01/02/19 05:39 Sodium 137 mmol/L (137-145) 01/21/19 04:23 Potassium 4.8 mmol/L (3.6-5.0) 01/21/19 04:23 Chloride 101.3 mmol/L (98-107) 01/21/19 04:23 Carbon Dioxide 30 mmol/L (22-30) 01/21/19 04:23 11 mmol/L 01/21/19 04:23 BUN 19 mg/dL (9-20) 01/21/19 04:23 1.7 mg/dL (0.8-1.5) H 01/21/19 04:23 Estimated GFR 49 ml/min 01/21/19 04:23 11 % 01/21/19 04:23 Glucose 98 mg/dL (75-100) 01/21/19 04:23 POC Glucose 135 (70-105) H 01/21/19 11:33 < 4.2 % (4-6) 12/26/18 17:12 Lactic Acid 1.10 mmol/L (0.7-2.0) 12/27/18 07:04 Calcium 9.1 mg/dL (8.4-10.2) 01/21/19 04:23 Phosphorus 2.90 mg/dL (2.5-4.5) D 01/05/19 04:56 Magnesium 2.00 mg/dL (1.7-2.3) 01/05/19 04:56 0.20 mg/dL (0.1-1.2) 01/07/19 11:16 AST 12 units/L (5-40) 01/07/19 11:16 ALT < 5 units/L (7-56) L 01/07/19 11:16 92 units/L (35-129) 01/07/19 11:16 29 units/L (55-170) L 12/26/18 17:12 0.204 ng/mL (0.00-0.029) H* 01/21/19 04:23 5.7 g/dL (6.3-8.2) L 01/07/19 11:16 2.0 g/dL (3.9-5) L 01/07/19 11:16 0.5 % 01/07/19 11:16 Triglycerides 46 mg/dL (2-149) 01/21/19 04:23 Cholesterol 64 mg/dL (50-199) 01/21/19 04:23 34 mg/dL (50-130) L 01/21/19 04:23 27 mg/dL (40-59) L 01/21/19 04:23 2.37 % 01/21/19 04:23 PTH Intact 178.6 pg/mL (15-65) H 01/01/19 17:32 Random Vancomycin 14.3 ug/mL (0-40.0) 01/15/19 10:57 Blood Type O POSITIVE 01/16/19 15:06 Antibody Screen Negative 01/16/19 15:06 Crossmatch See Detail 01/16/19 15:06 Active Medications - Current Medications Current Medications: Generic Name Dose Route Start Last Admin Trade Name Freq PRN Reason Stop Dose Admin Acetaminophen 650 mg 12/26/18 21:40 01/10/19 18:33 Tylenol PO 650 mg Q4H PRN Administration Pain MILD(1-3)/Fever >100.5/HILL Lipase/Protease/Amylase 1 each 01/16/19 17:11 cM Barrientos 10,500 Unit FEEDTUBE PRN PRN For Clogged Feeding Tube Aspirin 81 mg 12/27/18 10:00 01/21/19 11:34 Halfprin Ec PO 81 mg DAILY SANCHEZ Administration Diltiazem HCl 30 mg 01/21/19 12:00 Cardizem PO TID SANCHEZ Epoetin Solitario 20,000 unit 01/05/19 11:03 01/20/19 11:59 Procrit IV 20,000 unit UMA PRN Administration hemodialysis Famotidine 20 mg 12/27/18 10:00 01/21/19 11:33 Pepcid PO 20 mg DAILY SANCHEZ Administration Folic Acid 1 mg 12/27/18 10:00 01/21/19 11:34 Folvite PO 1 mg DAILY SANCHEZ Administration Gabapentin 100 mg 12/26/18 22:00 01/20/19 21:36 Neurontin PO 100 mg QHS SANCHEZ Administration Hydralazine HCl 100 mg 12/26/18 22:00 01/21/19 06:57 Apresoline PO 100 mg Q8HR SANCHEZ Administration Meropenem 1,000 mg/ Sodium 100 mls @ 100 mls/hr 01/05/19 11:00 01/20/19 10:00 Chloride IV 02/16/19 10:59 100 mls/hr Q24HR SANCHEZ Administration Vancomycin HCl 1 gm in 250 mls @ 167.007 mls/hr 01/06/19 20:00 01/20/19 21:36 Vancomycin/Ns 1 Gm/250 Ml IV 02/17/19 21:30 167.007 mls/hr TuThSa SANCHEZ Administration Dextrose 1,000 mls @ 45 mls/hr 01/14/19 13:00 01/14/19 12:45 D5w IV 45 mls/hr DIRECT SANCHEZ Administration Sodium Chloride 100 mls @ 999 mls/hr 01/19/19 09:29 Nacl 0.9% IV UMA PRN Hypotension Insulin Human Regular 0 units 01/14/19 00:00 01/21/19 06:52 Humulin R SUB-Q Not Given Q6HR [facility] Protocol Metoprolol Tartrate 100 mg 12/31/18 22:00 01/21/19 11:34 Lopressor PO 100 mg BID SANCHEZ Administration Morphine Sulfate 2 mg 01/21/19 04:08 01/21/19 04:22 Morphine IV 2 mg Q4H PRN Administration Pain, Moderate (4-6) Nitroglycerin 0.4 mg 01/21/19 04:05 01/21/19 04:15 Nitrostat SL 0.4 mg .Q5MIN PRN Administration Chest Pain Ondansetron HCl 4 mg 12/26/18 21:40 01/10/19 12:23 Zofran IV 4 mg Q8H PRN Administration Nausea And Vomiting Oxycodone/Acetaminophen 1 tab 01/05/19 08:30 01/20/19 05:37 Percocet 5/325 PO 1 tab Q6H PRN Administration Pain, Moderate (4-6) Risperidone 0.5 mg 12/26/18 22:00 01/20/19 21:36 Risperdal PO 0.5 mg QHS SANCHEZ Administration Risperidone 1 mg 12/27/18 10:00 01/21/19 11:34 Risperdal PO 1 mg QAM SANCHEZ Administration Sertraline HCl 100 mg 12/27/18 10:00 01/21/19 11:34 Zoloft PO 100 mg QDAY SANCHEZ Administration Simple Syrup 15 ml 01/16/19 17:11 Simple Syrup FEEDTUBE PRN PRN Hypoglycemia Simple Syrup 30 ml 01/16/19 17:11 Simple Syrup FEEDTUBE PRN PRN Hypoglycemia Sodium Bicarbonate 325 mg 01/16/19 17:11 Sodium Bicarbonate FEEDTUBE PRN PRN For Clogged Feeding Tube Sodium Chloride 10 ml 12/26/18 22:00 01/21/19 11:35 Sodium Chloride Flush Syringe 10 Ml IV 10 ml BID SANCHEZ Administration Sodium Chloride 10 ml 12/26/18 21:40 01/16/19 21:00 Sodium Chloride Flush Syringe 10 Ml IV 10 ml PRN PRN Administration LINE FLUSH Sodium Hypochlorite 1 applic 01/19/19 10:00 01/21/19 11:35 Dakin's Half Strength TP 1 applicatio QDAY SANCHEZ Administration Nutrition/Malnutrition Assess - Dietary Evaluation Nutrition/Malnutrition Findings: Nutrition Notes Start: 12/27/18 17:15 Freq: Status: Active Protocol: Document 01/16/19 17:08 RM (Rec: 01/16/19 17:11 RM [id number]) Nutrition Notes Initial or Follow up Reassessment Current Diagnosis CKD (stage V CKD),Diabetes, Sepsis,Hypertension Other Pertinent Diagnosis Hx CVA,S/P PEG, Sacral wound, FTT, acute encephalopathy Current Diet No diet ordered Labs/Tests Reviewed Pertinent Medications Reviewed Height 5 ft 7 in Weight 85.4 kg [place] Body Weight (kg) 67.27 BMI 29.5 Subjective/Other Information Observed Glucerna 1.2 infusing at goal rate. Percent of energy/protein needs met: 97%/100% Burn Absent Trauma Absent #2 Nutrition Diagnosis Increased nutrient needs ( specify in comment below) Diagnosis Progress(for reassessment Continues documentation) #1 Nutrition Diagnosis Inadequate oral intake Diagnosis Progress(for reassessment Continues documentation) Is patient on ventilator? No Is Patient Ambulatory and/or Out of Bed No REE-([facility]-confined to bed) [phone] Calculation Used for Recommendations [facility] Additional Notes Pro needs 1.2-1.4g/k- 118g/day Fluid needs 1-1.5L/day Nutrition Intervention Nutrition Support: Glucerna 1.2 at 65 ml/hr. Water flush of 100 mls q 4 hrs . Kcal 1,872 Protein (gm) 94 Carbohydrates (gm) 179 Fat (gm) 94 Fluid (mL) 1,256 Fiber (gm) 25 Goal #1 Continue to meet at least 75% of calorie and protein needs via TF Anticipated Discharge Needs: Glucerna 1.2 Follow-Up By: 01/23/19 Additional Comments Follow for TF tolerance
[2019-01-21] MEDS: CARDIZEM PO SCH ×2 (13:47→21:10)
[2019-01-21] MEDS: MERREM 1,000 MG in NACL 0.9% 100 ML IV SCH (13:48)
--- NOTE | 2019-01-21 20:00 | Progress Note ---
Assessment and Plan Impression: * End stage renal disease * Failure to thrive * Infected sacral decubitus ulcer * Schizophrenia * Chronic atrial fibrillation * Coronary artery disease * History of CVA * Hyponatremia * Anemia secondary to ESRD * Hyperkalemia * Chest pain Plan: * Continue TTS schedule * UF as tolerated * Surgery recommendations reviewed * Cardiology consultation pending * Abx per ID/primary team * Nutrition per primary team * Dose medications for renal function * Epogen TID prn Subjective Date of service: 01/21/19 Principal diagnosis: afib Interval history: 24 events noted. Objective - Vital Signs Vital signs: Vital Signs - 12hr 01/21/19 01/21/19 01/21/19 10:00 12:55 13:47 Temperature 98.2 F Pulse Rate 78 78 Pulse Rate [ 108 H From Monitor] Respiratory 16 Rate Blood Pressure 123/76 123/76 O2 Sat by Pulse 99 Oximetry 01/21/19 17:03 Temperature 98.5 F Pulse Rate 95 H Pulse Rate [ From Monitor] Respiratory 18 Rate Blood Pressure 141/74 O2 Sat by Pulse 88 Oximetry - General Appearance General appearance: well-developed, chronically ill EENT: ATNC Respiratory: Present: Clear to Ascultation (anteriorly; diminshed breat sounds at bases) Cardiology: regular, S1S2 Gastrointestinal: other (PEG, ostomy) Integumentary: warm and dry Musculoskeletal: other (no edema) Psychiatric: cooperative - Lab 01/21/19 04:23 01/21/19 04:23 Most recent lab results Calcium 9.1 mg/dL (8.4-10.2) 01/21/19 04:23 Phosphorus 2.90 mg/dL (2.5-4.5) D 01/05/19 04:56 Magnesium 2.00 mg/dL (1.7-2.3) 01/05/19 04:56 Medications & Allergies - Medications Allergies/Adverse Reactions: Allergies haloperidol [From Haldol] Adverse Reaction (Verified 03/13/18 12:10) Unknown haloperidol lactate [From Haldol] Adverse Reaction (Verified 03/13/18 12:10) Unknown Home Medications: Home Medications Medication Instructions Recorded Confirmed Last Taken Type risperiDONE [RisperDAL] 1 mg PO QAM 03/13/18 12/27/18 Unknown History Sertraline [Zoloft] 100 mg PO QDAY 08/26/18 12/27/18 Unknown History risperiDONE [RisperDAL] 0.5 mg PO HS 08/26/18 12/27/18 Unknown History Polyethylene Glycol 3350 [Miralax 17 gm PO QDAY #30 packet 11/05/18 12/27/18 Unknown Rx 3350] Aspirin EC 81 mg PO DAILY #30 11/19/18 12/27/18 Unknown Rx Docusate Sodium [Colace CAP] 100 mg PO BID #60 11/19/18 12/27/18 Unknown Rx Folic Acid [Folvite] 1 mg PO DAILY #30 tab 11/19/18 12/27/18 Unknown Rx Famotidine [Pepcid] 20 mg PO DAILY tablet 12/08/18 12/27/18 Unknown Rx Gabapentin [Neurontin] 100 mg PO QHS capsule 12/08/18 12/27/18 Unknown Rx Metoprolol [Lopressor TAB] 50 mg PO BID 30 Days tablet 12/08/18 12/27/18 Unknown Rx Sevelamer Carbonate [Renvela] 800 mg PO TIDWM tablet 12/08/18 12/27/18 Unknown Rx hydrALAZINE [Apresoline TAB] 100 mg PO Q8HR #120 tablet 12/08/18 12/27/18 Unknown Rx Acetaminophen [Acetaminophen TAB] 650 mg PO Q12H PRN 12/15/18 12/27/18 Unknown History Amino Acids/Protein Hydrolys 30 ml PO BID 12/15/18 12/27/18 Unknown History [Pro-Stat Sugar Free Liquid] Glucagon,Human Recombinant 1 mg IJ Q15MIN PRN 12/15/18 12/27/18 Unknown History [Glucagon Emergency Kit] Insulin Aspart [NovoLOG 100 See Protocol SQ QWEEK 12/15/18 12/27/18 Unknown History UNITS/ML VIAL] Epoetin Solitario 10,000 Unit [Procrit] 10,000 unit IV UMA PRN vial 12/18/18 12/27/18 Unknown Rx Lispro Insulin [HumaLOG] 0 unit SUB-Q ACHS units 12/18/18 12/27/18 Unknown Rx risperiDONE [RisperDAL] 0.5 mg PO QHS tablet 12/18/18 12/27/18 Unknown Rx Meropenem [Merrem] 1,000 mg IV Q24HR vial 01/16/19 Unknown Rx Active Medications: Generic Name Dose Route Start Last Admin Trade Name Freq PRN Reason Stop Dose Admin Acetaminophen 650 mg 12/26/18 21:40 01/10/19 18:33 Tylenol PO 650 mg Q4H PRN Administration Pain MILD(1-3)/Fever >100.5/HILL Lipase/Protease/Amylase 1 each 01/16/19 17:11 Pancrejewel Barrientos 10,500 Unit FEEDTUBE PRN PRN For Clogged Feeding Tube Aspirin 81 mg 12/27/18 10:00 01/21/19 11:34 Halfprin Ec PO 81 mg DAILY SANCHEZ Administration Diltiazem HCl 30 mg 01/21/19 12:00 01/21/19 13:47 Cardizem PO 30 mg TID SANCHEZ Administration Epoetin Solitario 20,000 unit 01/05/19 11:03 01/20/19 11:59 Procrit IV 20,000 unit UMA PRN Administration hemodialysis Famotidine 20 mg 12/27/18 10:00 01/21/19 11:33 Pepcid PO 20 mg DAILY SANCHEZ Administration Folic Acid 1 mg 12/27/18 10:00 01/21/19 11:34 Folvite PO 1 mg DAILY SANCHEZ Administration Gabapentin 100 mg 12/26/18 22:00 01/20/19 21:36 Neurontin PO 100 mg QHS SANCHEZ Administration Hydralazine HCl 100 mg 12/26/18 22:00 01/21/19 13:46 Apresoline PO 100 mg Q8HR SANCHEZ Administration Meropenem 1,000 mg/ Sodium 100 mls @ 100 mls/hr 01/05/19 11:00 01/21/19 13:48 Chloride IV 02/16/19 10:59 100 mls/hr Q24HR SANCHEZ Administration Vancomycin HCl 1 gm in 250 mls @ 167.007 mls/hr 01/06/19 20:00 01/20/19 21:36 Vancomycin/Ns 1 Gm/250 Ml IV 02/17/19 21:30 167.007 mls/hr TuThSa SANCHEZ Administration Dextrose 1,000 mls @ 45 mls/hr 01/14/19 13:00 01/14/19 12:45 D5w IV 45 mls/hr DIRECT SANCHEZ Administration Sodium Chloride 100 mls @ 999 mls/hr 01/19/19 09:29 Nacl 0.9% IV UMA PRN Hypotension Insulin Human Regular 0 units 01/14/19 00:00 01/21/19 18:37 Humulin R SUB-Q Not Given Q6HR [facility] Protocol Metoprolol Tartrate 100 mg 12/31/18 22:00 01/21/19 11:34 Lopressor PO 100 mg BID SANCHEZ Administration Morphine Sulfate 2 mg 01/21/19 04:08 01/21/19 04:22 Morphine IV 2 mg Q4H PRN Administration Pain, Moderate (4-6) Nitroglycerin 0.4 mg 01/21/19 04:05 01/21/19 04:15 Nitrostat SL 0.4 mg .Q5MIN PRN Administration Chest Pain Ondansetron HCl 4 mg 12/26/18 21:40 01/10/19 12:23 Zofran IV 4 mg Q8H PRN Administration Nausea And Vomiting Oxycodone/Acetaminophen 1 tab 01/05/19 08:30 01/20/19 05:37 Percocet 5/325 PO 1 tab Q6H PRN Administration Pain, Moderate (4-6) Risperidone 0.5 mg 12/26/18 22:00 01/20/19 21:36 Risperdal PO 0.5 mg QHS SANCHEZ Administration Risperidone 1 mg 12/27/18 10:00 01/21/19 11:34 Risperdal PO 1 mg QAM SANCHEZ Administration Sertraline HCl 100 mg 12/27/18 10:00 01/21/19 11:34 Zoloft PO 100 mg QDAY SANCHEZ Administration Simple Syrup 15 ml 01/16/19 17:11 Simple Syrup FEEDTUBE PRN PRN Hypoglycemia Simple Syrup 30 ml 01/16/19 17:11 Simple Syrup FEEDTUBE PRN PRN Hypoglycemia Sodium Bicarbonate 325 mg 01/16/19 17:11 Sodium Bicarbonate FEEDTUBE PRN PRN For Clogged Feeding Tube Sodium Chloride 10 ml 12/26/18 22:00 01/21/19 11:35 Sodium Chloride Flush Syringe 10 Ml IV 10 ml BID SANCHEZ Administration Sodium Chloride 10 ml 12/26/18 21:40 01/16/19 21:00 Sodium Chloride Flush Syringe 10 Ml IV 10 ml PRN PRN Administration LINE FLUSH Sodium Hypochlorite 1 applic 01/19/19 10:00 01/21/19 11:35 Dakin's Half Strength TP 1 applicatio QDAY SANCHEZ Administration
[2019-01-21] MEDS: NEURONTIN PO SCH (21:08)
[2019-01-22] MEDS: HumuLIN R SUB-Q SCH ×4 (00:53→18:31)
[2019-01-22] MEDS: APRESOLINE PO SCH ×3 (05:04→21:43)
[2019-01-22 06:18] LABS: Basophils # (Auto) 0.1 K/mm3 (0.0-0.1); Basophils % (Auto) 1.5 % (0.0-1.8); Eosinophils # (Auto) 0.6 K/mm3 (0.0-0.4); Eosinophils % (Auto) 9.8 % (0.0-4.3); Hemoglobin 9.5 gm/dl (11.8-15.2); Lymphocytes # (Auto) 0.8 K/mm3 (1.2-5.4); Lymphocytes % (Auto) 12.3 % (13.4-35.0); Mean Corpuscular HGB Conc 33 % (32-34); Mean Corpuscular Volume 90 fl (84-94); Monocytes # (Auto) 0.8 K/mm3 (0.0-0.8); Monocytes % (Auto) 12.2 % (0.0-7.3); Platelet Count 195 K/mm3 (140-440); Red Blood Count 3.23 M/mm3 (3.65-5.03)
[2019-01-22 06:27] LABS: Calcium 9.4 mg/dL (8.4-10.2)
--- NOTE | 2019-01-22 08:06 | Progress Note ---
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 Decreased responsive and not eating at all for 2 days. Patient has failure to thrive, altered mentation and weight loss of 20 pounds since 12/08/2018. Severe Sepsis due to Necrotizing Unstagable sacral decubitus ulcer with ostemomylitis s/p OR on 01/01/2019 for open excisional debridement of necrotic and infected sacral wound noted a large amount of necrotic tissue debrided and two abscess cavities at the caudad portion of the wound with a copious amount of purulent drainage which was drained. Wound cultures 01/02/2019 ESBL Kleb, MDR Ecoli and E raffinosus resistant to penicillin: On meropenam and vanc per ID. Consult Vascular surgery for central line placement, planned for diverting colostomy, family has agreed, Cardiology re-evaluated for surgery, input noted, high CV risk. d/w Dr. Villela, Vascular surgery placed central line placement for Merem, 01/08/19 Further debridement done 01/14/19 pateint noted to have lost over 150cc Of blood during this procedure. Acute on chronic Anemia of AOCD: Continue epoetin, total of 8 units PRBC, follow cbc- no occult GI bleed noted. GI input noted, No retroperitoneal bleed noted. Although 150cc Of blood loss documented during debridement No further bleeding from sacral wound noted Dakins moistened kerlex packing started Pt is s/p x1 DDVAP Chest pain, now resolved Acute metabolic encephalopathy due to the above Acute systolic exacerbation of CHF (congestive heart failure): treat via Ultrafiltration during HD Afib with RVR: rate control only and optimize meds per Cardiology ESRD needing dialysis: Nephology is managing, Continue hemo dialysis Insulin dependent diabetes mellitus, A1c is 4.2: insulin was dc Severe malnutrition with FTT: 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, cont oral diet, auto care center manager input appreciated, PEG tube placed on 01/02/19 Hypertension: Continue antihypertensives h/o Peripheral neuropathy: Continue gabapentin Elevated troponin, Secondary to end-stage renal disease, chf and afib, Cardi ology input appreciated DVT prophylaxis On heparin and GI prophylaxis Poor prognosis discussed with family member Mr Jennifer Mims. Per discussion with Surgery and as documented by them "Very poor prognosis for wound healing. I do not feel wound will ever heal due to extensive nature, poor nutrition, bedbound status, among other comorbidities. Recommend hospice." Family not accepting at this time. Ok to dc to NH when bed available. Would hold off on vac and continue dakins dressings to wound. May follow up in wound care center after dc. Discussed with case management. Awaiting placement History Interval history: c/o chest pain, night of 01/20 now resolved Hospitalist Physical - Physical exam Narrative exam: Gen: Not in acute distress, lying in bed,obese,ill looking HEENT: Normocephalic, atraumatic Neck: supple, no JVD Heart: S1 and S2 reg, no murmurs, rubs or gallop Lungs: Clear, no crackles, no wheeze Abd: soft, non tender, non distended, normal BS, PEg tube Ext: Contracted, no clubbing, no cyanosis, Sacrum: sacral decub ulcer Neuro: Lethargic, - Constitutional Vitals: Temp Pulse Resp BP Pulse Ox 97.9 F 102 H 20 148/86 100 01/22/19 05:01 01/22/19 05:01 01/22/19 05:01 01/22/19 05:01 01/22/19 05:01 General appearance: Present: no acute distress Results - Labs CBC & Chem 7: 01/22/19 Unknown 01/22/19 Unknown Labs: Laboratory Last Values WBC 6.2 K/mm3 (4.5-11.0) 01/22/19 Unknown RBC 3.23 M/mm3 (3.65-5.03) L 01/22/19 Unknown Hgb 9.5 gm/dl (11.8-15.2) L 01/22/19 Unknown Hct 29.0 % (35.5-45.6) L 01/22/19 Unknown MCV 90 fl (84-94) 01/22/19 Unknown MCH 30 pg (28-32) 01/22/19 Unknown MCHC 33 % (32-34) 01/22/19 Unknown RDW 18.0 % (13.2-15.2) H 01/22/19 Unknown Plt Count 195 K/mm3 (140-440) 01/22/19 Unknown Lymph % (Auto) 12.3 % (13.4-35.0) L 01/22/19 Unknown [place] % (Auto) 12.2 % (0.0-7.3) H 01/22/19 Unknown Eos % (Auto) 9.8 % (0.0-4.3) H 01/22/19 Unknown Baso % (Auto) 1.5 % (0.0-1.8) 01/22/19 Unknown Lymph # 0.8 K/mm3 (1.2-5.4) L 01/22/19 Unknown [place] # 0.8 K/mm3 (0.0-0.8) 01/22/19 Unknown Eos # 0.6 K/mm3 (0.0-0.4) H 01/22/19 Unknown Baso # 0.1 K/mm3 (0.0-0.1) 01/22/19 Unknown Add Manual Diff Complete 01/03/19 17:16 Total Counted 100 01/03/19 17:16 Seg Neutrophils % 64.2 % (40.0-70.0) 01/22/19 Unknown Seg Neuts % (Manual) 96.0 % (40.0-70.0) H 01/03/19 17:16 0 % 01/03/19 17:16 2.0 % (13.4-35.0) L 01/03/19 17:16 Reactive Lymphs % (Man) 0 % 01/03/19 17:16 2.0 % (0.0-7.3) 01/03/19 17:16 0 % (0.0-4.3) 01/03/19 17:16 0 % (0.0-1.8) 01/03/19 17:16 0 % 01/03/19 17:16 0 % 01/03/19 17:16 0 % 01/03/19 17:16 0 % 01/03/19 17:16 Nucleated RBC % Not Reportable 01/03/19 17:16 Seg Neutrophils # 4.0 K/mm3 (1.8-7.7) 01/22/19 Unknown Seg Neutrophils # Man 10.8 K/mm3 (1.8-7.7) H 01/03/19 17:16 Band Neutrophils # 0.0 K/mm3 01/03/19 17:16 0.2 K/mm3 (1.2-5.4) L 01/03/19 17:16 Abs React Lymphs (Man) 0.0 K/mm3 01/03/19 17:16 0.2 K/mm3 (0.0-0.8) 01/03/19 17:16 0.0 K/mm3 (0.0-0.4) 01/03/19 17:16 0.0 K/mm3 (0.0-0.1) 01/03/19 17:16 0.0 K/mm3 01/03/19 17:16 0.0 K/mm3 01/03/19 17:16 0.0 K/mm3 01/03/19 17:16 Blast Cells # 0.0 K/mm3 01/03/19 17:16 WBC Morphology Not Reportable 01/03/19 17:16 Hypersegmented Neuts Not Reportable 01/03/19 17:16 Hyposegmented Neuts Not Reportable 01/03/19 17:16 Hypogranular Neuts Not Reportable 01/03/19 17:16 Not Reportable 01/03/19 17:16 Not Reportable 01/03/19 17:16 Not Reportable 01/03/19 17:16 Not Reportable 01/03/19 17:16 Not Reportable 01/03/19 17:16 Not Reportable 01/03/19 17:16 Consistent w auto 01/03/19 17:16 Not Reportable 01/03/19 17:16 Plt Clumps, EDTA Not Reportable 01/03/19 17:16 Not Reportable 01/03/19 17:16 Not Reportable 01/03/19 17:16 Not Reportable 01/03/19 17:16 Plt Morphology Comment Not Reportable 01/03/19 17:16 RBC Morphology Not Reportable 01/03/19 17:16 Dimorphic RBCs Not Reportable 01/03/19 17:16 Not Reportable 01/03/19 17:16 1+ 01/03/19 17:16 Few 01/03/19 17:16 1+ 01/03/19 17:16 Not Reportable 01/03/19 17:16 Not Reportable 01/03/19 17:16 Not Reportable 01/03/19 17:16 Not Reportable 01/03/19 17:16 Not Reportable 01/03/19 17:16 Few 01/03/19 17:16 Not Reportable 01/03/19 17:16 Few 01/03/19 17:16 Not Reportable 01/03/19 17:16 Not Reportable 01/03/19 17:16 Not Reportable 01/03/19 17:16 Not Reportable 01/03/19 17:16 Not Reportable 01/03/19 17:16 Not Reportable 01/03/19 17:16 Not Reportable 01/03/19 17:16 Acanthocytes (Spur) Not Reportable 01/03/19 17:16 Rouleaux Not Reportable 01/03/19 17:16 Not Reportable 01/03/19 17:16 Not Reportable 01/03/19 17:16 Not Reportable 01/03/19 17:16 Not Reportable 01/03/19 17:16 Hem Pathologist Commnt No 01/03/19 17:16 PT 18.0 Sec. (12.2-14.9) H 01/02/19 05:39 INR 1.39 (0.87-1.13) H 01/02/19 05:39 Sodium 133 mmol/L (137-145) L 01/22/19 Unknown Potassium 5.6 mmol/L (3.6-5.0) H 01/22/19 Unknown Chloride 96.8 mmol/L (98-107) L 01/22/19 Unknown Carbon Dioxide 30 mmol/L (22-30) 01/22/19 Unknown 12 mmol/L 01/22/19 Unknown BUN 31 mg/dL (9-20) H 01/22/19 Unknown 2.4 mg/dL (0.8-1.5) H 01/22/19 Unknown Estimated GFR 33 ml/min 01/22/19 Unknown 13 % 01/22/19 Unknown Glucose 121 mg/dL (75-100) H 01/22/19 Unknown POC Glucose 128 (70-105) H 01/22/19 05:33 < 4.2 % (4-6) 12/26/18 17:12 Lactic Acid 1.10 mmol/L (0.7-2.0) 12/27/18 07:04 Calcium 9.4 mg/dL (8.4-10.2) 01/22/19 Unknown Phosphorus 2.90 mg/dL (2.5-4.5) D 01/05/19 04:56 Magnesium 2.00 mg/dL (1.7-2.3) 01/05/19 04:56 0.20 mg/dL (0.1-1.2) 01/07/19 11:16 AST 12 units/L (5-40) 01/07/19 11:16 ALT < 5 units/L (7-56) L 01/07/19 11:16 92 units/L (35-129) 01/07/19 11:16 29 units/L (55-170) L 12/26/18 17:12 0.201 ng/mL (0.00-0.029) H* 01/21/19 08:05 5.7 g/dL (6.3-8.2) L 01/07/19 11:16 2.0 g/dL (3.9-5) L 01/07/19 11:16 0.5 % 01/07/19 11:16 Triglycerides 46 mg/dL (2-149) 01/21/19 04:23 Cholesterol 64 mg/dL (50-199) 01/21/19 04:23 34 mg/dL (50-130) L 01/21/19 04:23 27 mg/dL (40-59) L 01/21/19 04:23 2.37 % 01/21/19 04:23 PTH Intact 178.6 pg/mL (15-65) H 01/01/19 17:32 Random Vancomycin 14.3 ug/mL (0-40.0) 01/15/19 10:57 Blood Type O POSITIVE 01/16/19 15:06 Antibody Screen Negative 01/16/19 15:06 Crossmatch See Detail 01/16/19 15:06 Active Medications - Current Medications Current Medications: Generic Name Dose Route Start Last Admin Trade Name Freq PRN Reason Stop Dose Admin Acetaminophen 650 mg 12/26/18 21:40 01/10/19 18:33 Tylenol PO 650 mg Q4H PRN Administration Pain MILD(1-3)/Fever >100.5/HILL Lipase/Protease/Amylase 1 each 01/16/19 17:11 Pancreaze 10,500 Unit FEEDTUBE PRN PRN For Clogged Feeding Tube Aspirin 81 mg 12/27/18 10:00 01/21/19 11:34 Halfprin Ec PO 81 mg DAILY SANCHEZ Administration Diltiazem HCl 30 mg 01/21/19 12:00 01/21/19 21:10 Cardizem PO 30 mg TID SANCHEZ Administration Epoetin Solitario 20,000 unit 01/05/19 11:03 01/20/19 11:59 Procrit IV 20,000 unit UMA PRN Administration hemodialysis Famotidine 20 mg 12/27/18 10:00 01/21/19 11:33 Pepcid PO 20 mg DAILY SANCHEZ Administration Folic Acid 1 mg 12/27/18 10:00 01/21/19 11:34 Folvite PO 1 mg DAILY SANCHEZ Administration Gabapentin 100 mg 12/26/18 22:00 01/21/19 21:08 Neurontin PO 100 mg QHS SANCHEZ Administration Hydralazine HCl 100 mg 12/26/18 22:00 01/22/19 05:04 Apresoline PO 100 mg Q8HR SANCHEZ Administration Meropenem 1,000 mg/ Sodium 100 mls @ 100 mls/hr 01/05/19 11:00 01/21/19 13:48 Chloride IV 02/16/19 10:59 100 mls/hr Q24HR SANCHEZ Administration Vancomycin HCl 1 gm in 250 mls @ 167.007 mls/hr 01/06/19 20:00 01/20/19 21:36 Vancomycin/Ns 1 Gm/250 Ml IV 02/17/19 21:30 167.007 mls/hr TuThSa SANCHEZ Administration Dextrose 1,000 mls @ 45 mls/hr 01/14/19 13:00 01/14/19 12:45 D5w IV 45 mls/hr DIRECT SANCHEZ Administration Sodium Chloride 100 mls @ 999 mls/hr 01/19/19 09:29 Nacl 0.9% IV UMA PRN Hypotension Insulin Human Regular 0 units 01/14/19 00:00 01/22/19 05:33 Humulin R SUB-Q Not Given Q6HR SANCHEZ Protocol Metoprolol Tartrate 100 mg 12/31/18 22:00 01/21/19 21:11 Lopressor PO 100 mg BID SANCHEZ Administration Morphine Sulfate 2 mg 01/21/19 04:08 01/21/19 04:22 Morphine IV 2 mg Q4H PRN Administration Pain, Moderate (4-6) Nitroglycerin 0.4 mg 01/21/19 04:05 01/21/19 04:15 Nitrostat SL 0.4 mg .Q5MIN PRN Administration Chest Pain Ondansetron HCl 4 mg 12/26/18 21:40 01/10/19 12:23 Zofran IV 4 mg Q8H PRN Administration Nausea And Vomiting Oxycodone/Acetaminophen 1 tab 01/05/19 08:30 01/20/19 05:37 Percocet 5/325 PO 1 tab Q6H PRN Administration Pain, Moderate (4-6) Risperidone 0.5 mg 12/26/18 22:00 01/21/19 21:08 Risperdal PO 0.5 mg QHS SANCHEZ Administration Risperidone 1 mg 12/27/18 10:00 01/21/19 11:34 Risperdal PO 1 mg QAM SANCHEZ Administration Sertraline HCl 100 mg 12/27/18 10:00 01/21/19 11:34 Zoloft PO 100 mg QDAY SANCHEZ Administration Simple Syrup 15 ml 01/16/19 17:11 Simple Syrup FEEDTUBE PRN PRN Hypoglycemia Simple Syrup 30 ml 01/16/19 17:11 Simple Syrup FEEDTUBE PRN PRN Hypoglycemia Sodium Bicarbonate 325 mg 01/16/19 17:11 Sodium Bicarbonate FEEDTUBE PRN PRN For Clogged Feeding Tube Sodium Chloride 10 ml 12/26/18 22:00 01/21/19 21:09 Sodium Chloride Flush Syringe 10 Ml IV 10 ml BID SANCHEZ Administration Sodium Chloride 10 ml 12/26/18 21:40 01/16/19 21:00 Sodium Chloride Flush Syringe 10 Ml IV 10 ml PRN PRN Administration LINE FLUSH Sodium Hypochlorite 1 applic 01/19/19 10:00 01/21/19 11:35 Dakin's Half Strength TP 1 applicatio QDAY SANCHEZ Administration Nutrition/Malnutrition Assess - Dietary Evaluation Nutrition/Malnutrition Findings: Nutrition Notes Start: 12/27/18 17:15 Freq: Status: Active Protocol: Document 01/16/19 17:08 (Rec: 01/16/19 17:11 [email or web address]) Nutrition Notes Initial or Follow up Reassessment Current Diagnosis CKD (stage V CKD),Diabetes, Sepsis,Hypertension Other Pertinent Diagnosis Hx CVA,S/P PEG, Sacral wound, FTT, acute encephalopathy Current Diet No diet ordered Labs/Tests Reviewed Pertinent Medications Reviewed Height 5 ft 7 in Weight 85.4 kg Mineral Body Weight (kg) 67.27 BMI 29.5 Subjective/Other Information Observed Glucerna 1.2 infusing at goal rate. Percent of energy/protein needs met: 97%/100% Burn Absent Trauma Absent #2 Nutrition Diagnosis Increased nutrient needs ( specify in comment below) Diagnosis Progress(for reassessment Continues documentation) #1 Nutrition Diagnosis Inadequate oral intake Diagnosis Progress(for reassessment Continues documentation) Is patient on ventilator? No Is Patient Ambulatory and/or Out of Bed No REE-([facility]-confined to bed) 8.268 Calculation Used for Recommendations [facility] Additional Notes Pro needs 1.2-1.4g/k- 118g/day Fluid needs 1-1.5L/day Nutrition Intervention Nutrition Support: Glucerna 1.2 at 65 ml/hr. Water flush of 100 mls q 4 hrs . Kcal 1,872 Protein (gm) 94 Carbohydrates (gm) 179 Fat (gm) 94 Fluid (mL) 1,256 Fiber (gm) 25 Goal #1 Continue to meet at least 75% of calorie and protein needs via TF Anticipated Discharge Needs: Glucerna 1.2 Follow-Up By: 01/23/19 Additional Comments Follow for TF tolerance
--- NOTE | 2019-01-22 09:56 | Progress Note ---
Assessment and Plan Patient remains tachycardic, despite metoprolol and the addition of diltiazem. Will increase diltiazem to 60 mg BID. Continue other cardiac management. The patient has been seen in conjunction with Dr. Modi, who agrees with assessment and plan. - Patient Problems (1) Atrial fibrillation with RVR Current Visit: Yes Status: Acute (2) Altered mental status Current Visit: Yes Status: Acute Qualifiers: Altered mental status type: unspecified Qualified Code(s): R41.82 - Altered mental status, unspecified (3) Cardiomyopathy Current Visit: Yes Status: Chronic (4) Diabetes Current Visit: Yes Status: Chronic (5) ESRD (end stage renal disease) on dialysis Current Visit: Yes Status: Chronic (6) History of CVA (cerebrovascular accident) Current Visit: Yes Status: Chronic (7) History of loop recorder Current Visit: Yes Status: Chronic (8) Legally blind Current Visit: Yes Status: Chronic (9) Decubitus ulcer of sacral region, unstageable Current Visit: Yes Status: Acute (10) Elevated troponin Current Visit: Yes Status: Chronic Subjective Date of service: 01/22/19 Principal diagnosis: afib Interval history: Patient lying in bed with dialysis in progress. Denies CP and no other complaints, though patient is confused. HR remains elevated despite addition of diltiazem. Objective Last Vital Signs Temp 97.6 F 01/22/19 08:25 Pulse 100 H 01/22/19 09:00 Resp 20 01/22/19 08:25 BP 135/85 01/22/19 09:00 Pulse Ox 100 01/22/19 05:01 - Physical Examination General: No Apparent Distress HEENT: Positive: PERRL Cardiac: Positive: Regular Rhythm Lungs: Positive: clear to auscultation Neuro: Positive: Other (confused) Abdomen: Positive: Unremarkable /Rectal: Other (Deferred) Skin: Negative: Rash Musculoskeletal: Decreased Range of Motion Extremities: Present: normal. Absent: edema - Labs and Meds CBC 01/22/19 Range/Units Unknown WBC 6.2 (4.5-11.0) K/mm3 RBC 3.23 L (3.65-5.03) M/mm3 Hgb 9.5 L (11.8-15.2) gm/dl Hct 29.0 L (35.5-45.6) % Plt Count 195 (140-440) K/mm3 Lymph # 0.8 L (1.2-5.4) K/mm3 [place] # 0.8 (0.0-0.8) K/mm3 Eos # 0.6 H (0.0-0.4) K/mm3 Baso # 0.1 (0.0-0.1) K/mm3 Comprehensive Metabolic Panel 01/22/19 Range/Units Unknown Sodium 133 L (137-145) mmol/L Potassium 5.6 H (3.6-5.0) mmol/L Chloride 96.8 L (98-107) mmol/L Carbon Dioxide 30 (22-30) mmol/L BUN 31 H (9-20) mg/dL Creatinine 2.4 H (0.8-1.5) mg/dL Glucose 121 H (75-100) mg/dL Calcium 9.4 (8.4-10.2) mg/dL - Imaging and Cardiology EKG: report reviewed, image reviewed Echo: report reviewed (Echo done 12/16/2018 showed EF 35-40%, mild LVH, RV systolic function mod reduced, RA mildly dilated, pulm HTN with RVSP 53mmHg, large pleural effusion, markedly increased RA pressure. ) - Telemetry EKG Rhythm: Sinus Bradycardia
[2019-01-22] MEDS: PROCRIT IV PRN (10:11)
[2019-01-22] MEDS: CARDIZEM PO SCH ×3 (10:42→21:45)
--- NOTE | 2019-01-22 10:58 | Progress Note ---
Subjective Principal diagnosis: afib Interval history: Patient was seen today for follow-up on multiple renal related issues Events of this hospitalization noted On dialysis Saturday Vitals labs intake output medications were reviewed Social history: Reviewed Allergies: Reviewed Family history: Reviewed Physical examination HEENT: Oral mucosa moist no pallor or icterus Neck: Supple no JVD Chest: Clear to auscultation anteriorly CVS: Regular rate and rhythm S1 and S2 heard Abdomen: Soft nontender no suprapubic masses no organomegaly appreciable Extremity: Dry skin less than 1+ peripheral edema Musculoskeletal: No joint effusion noted in knees and ankle Neurological: Alert awake Dermatology: No petechial rashes Psychiatry: No evidence of any agitation and aggression noted Assessment and plan; End-stage renal disease continue with hemodialysis Saturday schedule Anemia in end-stage renal disease to monitor and follow Secondary hyperparathyroidism: To monitor and follow Multiple underlying comorbidities including CVA coronary artery disease atrial fibrillation schizophrenia chronic noncompliance Prognosis very poor From dialysis standpoint blood pressure is currently well controlled, hemoglobin is 9.5 potassium 5.6 We'll continue to follow and make recommendation from renal standpoint Objective - Vital Signs Vital signs: Vital Signs - 12hr 01/21/19 01/22/19 01/22/19 23:01 05:01 08:25 Temperature 97.8 F 97.9 F 97.6 F Pulse Rate 87 102 H 99 H Respiratory 18 20 20 Rate Blood Pressure 143/82 148/86 145/73 O2 Sat by Pulse 100 100 Oximetry 01/22/19 01/22/19 01/22/19 08:40 08:45 09:00 Temperature Pulse Rate 98 H 98 H 100 H Respiratory Rate Blood Pressure 132/81 135/75 135/85 O2 Sat by Pulse Oximetry 01/22/19 01/22/19 01/22/19 09:15 09:30 09:45 Temperature Pulse Rate 93 H 93 H 91 H Respiratory Rate Blood Pressure 150/78 143/75 132/70 O2 Sat by Pulse Oximetry 01/22/19 01/22/19 01/22/19 10:00 10:15 10:30 Temperature Pulse Rate 94 H 97 H 110 H Respiratory Rate Blood Pressure 126/77 133/77 133/79 O2 Sat by Pulse Oximetry - Lab 01/22/19 Unknown 01/22/19 Unknown Most recent lab results Calcium 9.4 mg/dL (8.4-10.2) 01/22/19 Unknown Phosphorus 2.90 mg/dL (2.5-4.5) D 01/05/19 04:56 Magnesium 2.00 mg/dL (1.7-2.3) 01/05/19 04:56 Medications & Allergies - Medications Allergies/Adverse Reactions: Allergies haloperidol [From Haldol] Adverse Reaction (Verified 03/13/18 12:10) Unknown haloperidol lactate [From Haldol] Adverse Reaction (Verified 03/13/18 12:10) Unknown Home Medications: Home Medications Medication Instructions Recorded Confirmed Last Taken Type risperiDONE [RisperDAL] 1 mg PO QAM 03/13/18 12/27/18 Unknown History Sertraline [Zoloft] 100 mg PO QDAY 08/26/18 12/27/18 Unknown History risperiDONE [RisperDAL] 0.5 mg PO HS 08/26/18 12/27/18 Unknown History Polyethylene Glycol 3350 [Miralax 17 gm PO QDAY #30 packet 11/05/18 12/27/18 Unknown Rx 3350] Aspirin EC 81 mg PO DAILY #30 11/19/18 12/27/18 Unknown Rx Docusate Sodium [Colace CAP] 100 mg PO BID #60 11/19/18 12/27/18 Unknown Rx Folic Acid [Folvite] 1 mg PO DAILY #30 tab 11/19/18 12/27/18 Unknown Rx Famotidine [Pepcid] 20 mg PO DAILY tablet 12/08/18 12/27/18 Unknown Rx Gabapentin [Neurontin] 100 mg PO QHS capsule 12/08/18 12/27/18 Unknown Rx Metoprolol [Lopressor TAB] 50 mg PO BID 30 Days tablet 12/08/18 12/27/18 Unknown Rx Sevelamer Carbonate [Renvela] 800 mg PO TIDWM tablet 12/08/18 12/27/18 Unknown Rx hydrALAZINE [Apresoline TAB] 100 mg PO Q8HR #120 tablet 12/08/18 12/27/18 Unknown Rx Acetaminophen [Acetaminophen TAB] 650 mg PO Q12H PRN 12/15/18 12/27/18 Unknown History Amino Acids/Protein Hydrolys 30 ml PO BID 12/15/18 12/27/18 Unknown History [Pro-Stat Sugar Free Liquid] Glucagon,Human Recombinant 1 mg IJ Q15MIN PRN 12/15/18 12/27/18 Unknown History [Glucagon Emergency Kit] Insulin Aspart [NovoLOG 100 See Protocol SQ QWEEK 12/15/18 12/27/18 Unknown History UNITS/ML VIAL] Epoetin Solitario 10,000 Unit [Procrit] 10,000 unit IV UMA PRN vial 12/18/18 12/27/18 Unknown Rx Lispro Insulin [HumaLOG] 0 unit SUB-Q ACHS units 12/18/18 12/27/18 Unknown Rx risperiDONE [RisperDAL] 0.5 mg PO QHS tablet 12/18/18 12/27/18 Unknown Rx Meropenem [Merrem] 1,000 mg IV Q24HR vial 01/16/19 Unknown Rx Active Medications: Generic Name Dose Route Start Last Admin Trade Name Freq PRN Reason Stop Dose Admin Acetaminophen 650 mg 12/26/18 21:40 01/10/19 18:33 Tylenol PO 650 mg Q4H PRN Administration Pain MILD(1-3)/Fever >100.5/HILL Lipase/Protease/Amylase 1 each 01/16/19 17:11 Pancreaze 10,500 Unit FEEDTUBE PRN PRN For Clogged Feeding Tube Aspirin 81 mg 12/27/18 10:00 01/21/19 11:34 Halfprin Ec PO 81 mg DAILY SANCHEZ Administration Diltiazem HCl 60 mg 01/22/19 10:00 Cardizem PO BID SANCHEZ Epoetin Solitario 20,000 unit 01/05/19 11:03 01/22/19 10:11 Procrit IV 20,000 unit UMA PRN Administration hemodialysis Famotidine 20 mg 12/27/18 10:00 01/21/19 11:33 Pepcid PO 20 mg DAILY SANCHEZ Administration Folic Acid 1 mg 12/27/18 10:00 01/21/19 11:34 Folvite PO 1 mg DAILY SANCHEZ Administration Gabapentin 100 mg 12/26/18 22:00 01/21/19 21:08 Neurontin PO 100 mg QHS SANCHEZ Administration Hydralazine HCl 100 mg 12/26/18 22:00 01/22/19 05:04 Apresoline PO 100 mg Q8HR SANCHEZ Administration Meropenem 1,000 mg/ Sodium 100 mls @ 100 mls/hr 01/05/19 11:00 01/21/19 13:48 Chloride IV 02/16/19 10:59 100 mls/hr Q24HR SANCHEZ Administration Vancomycin HCl 1 gm in 250 mls @ 167.007 mls/hr 01/06/19 20:00 01/20/19 21:36 Vancomycin/Ns 1 Gm/250 Ml IV 02/17/19 21:30 167.007 mls/hr TuThSa SANCHEZ Administration Dextrose 1,000 mls @ 45 mls/hr 01/14/19 13:00 01/14/19 12:45 D5w IV 45 mls/hr DIRECT SANCHEZ Administration Sodium Chloride 100 mls @ 999 mls/hr 01/19/19 09:29 Nacl 0.9% IV UMA PRN Hypotension Insulin Human Regular 0 units 01/14/19 00:00 01/22/19 05:33 Humulin R SUB-Q Not Given Q6HR [facility] Protocol Metoprolol Tartrate 100 mg 12/31/18 22:00 01/21/19 21:11 Lopressor PO 100 mg BID SANCHEZ Administration Morphine Sulfate 2 mg 01/21/19 04:08 01/21/19 04:22 Morphine IV 2 mg Q4H PRN Administration Pain, Moderate (4-6) Nitroglycerin 0.4 mg 01/21/19 04:05 01/21/19 04:15 Nitrostat SL 0.4 mg .Q5MIN PRN Administration Chest Pain Ondansetron HCl 4 mg 12/26/18 21:40 01/10/19 12:23 Zofran IV 4 mg Q8H PRN Administration Nausea And Vomiting Oxycodone/Acetaminophen 1 tab 01/05/19 08:30 01/20/19 05:37 Percocet 5/325 PO 1 tab Q6H PRN Administration Pain, Moderate (4-6) Risperidone 0.5 mg 12/26/18 22:00 01/21/19 21:08 Risperdal PO 0.5 mg QHS SANCHEZ Administration Risperidone 1 mg 12/27/18 10:00 01/21/19 11:34 Risperdal PO 1 mg QAM SANCHEZ Administration Sertraline HCl 100 mg 12/27/18 10:00 01/21/19 11:34 Zoloft PO 100 mg QDAY SANCHEZ Administration Simple Syrup 15 ml 01/16/19 17:11 Simple Syrup FEEDTUBE PRN PRN Hypoglycemia Simple Syrup 30 ml 01/16/19 17:11 Simple Syrup FEEDTUBE PRN PRN Hypoglycemia Sodium Bicarbonate 325 mg 01/16/19 17:11 Sodium Bicarbonate FEEDTUBE PRN PRN For Clogged Feeding Tube Sodium Chloride 10 ml 12/26/18 22:00 01/21/19 21:09 Sodium Chloride Flush Syringe 10 Ml IV 10 ml BID SANCHEZ Administration Sodium Chloride 10 ml 12/26/18 21:40 01/16/19 21:00 Sodium Chloride Flush Syringe 10 Ml IV 10 ml PRN PRN Administration LINE FLUSH Sodium Hypochlorite 1 applic 01/19/19 10:00 01/21/19 11:35 Dakin's Half Strength TP 1 applicatio QDAY SANCHEZ Administration
[2019-01-22 11:39] LABS: Hepatitis B Surface Antigen Non-Reactive (Negative); Hepatitis C Virus Antibody Non-Reactive (NonReactive)
[2019-01-22] MEDS: MERREM 1,000 MG in NACL 0.9% 100 ML IV SCH (11:56)
[2019-01-22] MEDS: HALFPRIN EC PO SCH (11:57)
[2019-01-22] MEDS: RisperDAL PO SCH ×2 (11:57→21:43)
[2019-01-22] MEDS: PEPCID PO SCH (11:57)
[2019-01-22] MEDS: ZOLOFT PO SCH (11:57)
[2019-01-22] MEDS: SODIUM CHLORIDE FLUSH SYRINGE 10 ML IV SCH ×2 (11:58→23:30)
[2019-01-22] MEDS: FOLVITE PO SCH (11:58)
[2019-01-22] MEDS: DAKIN'S HALF STRENGTH TP SCH (11:59)
[2019-01-22] MEDS: LOPRESSOR PO SCH ×2 (12:00→21:44)
[2019-01-22] MEDS: PERCOCET 5/325 PO PRN (18:31)
[2019-01-22] MEDS: NEURONTIN PO SCH (21:44)
[2019-01-22] MEDS: VANCOMYCIN/NS 1 GM/250 ML 1 GM/250 ML BAG IV SCH (21:46)
[2019-01-23] MEDS: PERCOCET 5/325 PO PRN ×2 (00:01→21:12)
[2019-01-23] MEDS: HumuLIN R SUB-Q SCH ×4 (00:12→18:48)
[2019-01-23] MEDS: APRESOLINE PO SCH ×3 (05:59→21:11)
[2019-01-23 07:20] LABS: Basophils # (Auto) 0.1 K/mm3 (0.0-0.1); Basophils % (Auto) 1.3 % (0.0-1.8); Eosinophils # (Auto) 0.8 K/mm3 (0.0-0.4); Eosinophils % (Auto) 11.9 % (0.0-4.3); Hematocrit 28.5 % (35.5-45.6); Hemoglobin 9.3 gm/dl (11.8-15.2); Lymphocytes # (Auto) 0.6 K/mm3 (1.2-5.4); Lymphocytes % (Auto) 8.8 % (13.4-35.0); Mean Corpuscular HGB Conc 33 % (32-34); Mean Corpuscular Volume 90 fl (84-94); Monocytes # (Auto) 0.8 K/mm3 (0.0-0.8); Monocytes % (Auto) 11.1 % (0.0-7.3); Platelet Count 213 K/mm3 (140-440); Red Blood Count 3.17 M/mm3 (3.65-5.03); Red Cell Distribution Width 17.9 % (13.2-15.2)
[2019-01-23 07:39] LABS: Calcium 9.2 mg/dL (8.4-10.2)
[2019-01-23] MEDS: MERREM 1,000 MG in NACL 0.9% 100 ML IV SCH (09:58)
[2019-01-23] MEDS: ZOLOFT PO SCH (09:59)
[2019-01-23] MEDS: HALFPRIN EC PO SCH (09:59)
[2019-01-23] MEDS: CARDIZEM PO SCH ×2 (10:00→21:14)
[2019-01-23] MEDS: PEPCID PO SCH (10:00)
[2019-01-23] MEDS: FOLVITE PO SCH (10:00)
[2019-01-23] MEDS: RisperDAL PO SCH ×2 (10:00→21:12)
[2019-01-23] MEDS: SODIUM CHLORIDE FLUSH SYRINGE 10 ML IV SCH ×2 (10:00→21:13)
[2019-01-23] MEDS: LOPRESSOR PO SCH ×2 (10:00→21:14)
[2019-01-23] MEDS: DAKIN'S HALF STRENGTH TP SCH (10:02)
--- NOTE | 2019-01-23 10:40 | Progress Note ---
Assessment and Plan Pt in AFib with CVR on current regimen. No long-term AC in setting of dementia, anemia, thrombocytopenia, and multiple co-morbidities. Nothing further to add from cardiac perspective at this time. Will sign off. The patient has been seen in conjunction with Dr. Modi who agrees with the assessment and plan of care. - Patient Problems (1) Atrial fibrillation Current Visit: Yes Status: Chronic (2) History of loop recorder Current Visit: Yes Status: Chronic (3) Cardiomyopathy Current Visit: Yes Status: Chronic (4) Altered mental status Current Visit: Yes Status: Acute Qualifiers: Altered mental status type: unspecified Qualified Code(s): R41.82 - Altered mental status, unspecified (5) ESRD (end stage renal disease) on dialysis Current Visit: Yes Status: Chronic (6) Diabetes Current Visit: Yes Status: Chronic (7) History of CVA (cerebrovascular accident) Current Visit: Yes Status: Chronic (8) Legally blind Current Visit: Yes Status: Chronic (9) Anemia Current Visit: Yes Status: Chronic Qualifiers: Anemia type: unspecified type Qualified Code(s): D64.9 - Anemia, unspecified (10) Thrombocytopenia Current Visit: Yes Status: Chronic (11) NSTEMI (non-ST elevated myocardial infarction) Current Visit: Yes Status: Acute Subjective Date of service: 01/23/19 Principal diagnosis: afib Interval history: pt resting in bed, no apparent distress, no current complaints. in AFib/AFlutter with HR 70s overnight. Objective Last Vital Signs Temp 97.6 F 01/23/19 04:35 Pulse 77 01/23/19 08:00 Resp 20 01/23/19 08:00 BP 120/71 01/23/19 04:35 Pulse Ox 98 01/23/19 04:35 - Physical Examination General: No Apparent Distress HEENT: Positive: PERRL Cardiac: Positive: irregularly irregular, S1/S2 Lungs: Positive: Decreased Breath Sounds Neuro: Positive: Other (confused) Abdomen: Positive: Unremarkable /Rectal: Other (Deferred) Skin: Negative: Rash Musculoskeletal: Decreased Range of Motion Extremities: Present: normal. Absent: edema - Labs and Meds CBC 01/23/19 Range/Units 07:00 WBC 7.0 (4.5-11.0) K/mm3 RBC 3.17 L (3.65-5.03) M/mm3 Hgb 9.3 L (11.8-15.2) gm/dl Hct 28.5 L (35.5-45.6) % Plt Count 213 (140-440) K/mm3 Lymph # 0.6 L (1.2-5.4) K/mm3 [place] # 0.8 (0.0-0.8) K/mm3 Eos # 0.8 H (0.0-0.4) K/mm3 Baso # 0.1 (0.0-0.1) K/mm3 Comprehensive Metabolic Panel 01/23/19 Range/Units 07:00 Sodium 133 L (137-145) mmol/L Potassium 4.9 (3.6-5.0) mmol/L Chloride 96.1 L (98-107) mmol/L Carbon Dioxide 30 (22-30) mmol/L BUN 24 H (9-20) mg/dL Creatinine 1.9 H (0.8-1.5) mg/dL Glucose 128 H (75-100) mg/dL Calcium 9.2 (8.4-10.2) mg/dL - Imaging and Cardiology EKG: report reviewed, image reviewed Echo: report reviewed (Echo done 12/16/2018 showed EF 35-40%, mild LVH, RV systolic function mod reduced, RA mildly dilated, pulm HTN with RVSP 53mmHg, large pleural effusion, markedly increased RA pressure. )
--- NOTE | 2019-01-23 11:15 | Progress Note ---
Assessment and Plan Impression: * End stage renal disease * Failure to thrive * Infected sacral decubitus ulcer * Schizophrenia * Chronic atrial fibrillation * Coronary artery disease * History of CVA * Hyponatremia * Anemia secondary to ESRD * Hyperkalemia * Chest pain Plan: * Continue TTS schedule * UF as tolerated * Surgery recommendations reviewed * Cardiology recommendations noted * Abx per ID/primary team * Nutrition per primary team * Dose medications for renal function * Epogen TID prn Subjective Date of service: 01/23/19 Principal diagnosis: afib Interval history: No acute events overnight Objective - Vital Signs Vital signs: Vital Signs - 12hr 01/23/19 01/23/19 01/23/19 00:01 01:01 04:35 Temperature 97.6 F Pulse Rate 75 Pulse Rate [ From Monitor] Respiratory 20 18 20 Rate Blood Pressure 120/71 O2 Sat by Pulse 98 Oximetry 01/23/19 08:00 Temperature Pulse Rate Pulse Rate [ 77 From Monitor] Respiratory 20 Rate Blood Pressure O2 Sat by Pulse Oximetry - General Appearance General appearance: well-developed, chronically ill EENT: ATNC Respiratory: Present: Clear to Ascultation Cardiology: regular, S1S2 Gastrointestinal: normal, no tenderness, no distended Integumentary: warm and dry Musculoskeletal: other (1+ pitting edema) - Lab 01/23/19 07:00 01/23/19 07:00 Most recent lab results Calcium 9.2 mg/dL (8.4-10.2) 01/23/19 07:00 Phosphorus 2.90 mg/dL (2.5-4.5) D 01/05/19 04:56 Magnesium 2.00 mg/dL (1.7-2.3) 01/05/19 04:56 Medications & Allergies - Medications Allergies/Adverse Reactions: Allergies haloperidol [From Haldol] Adverse Reaction (Verified 03/13/18 12:10) Unknown haloperidol lactate [From Haldol] Adverse Reaction (Verified 03/13/18 12:10) Unknown Home Medications: Home Medications Medication Instructions Recorded Confirmed Last Taken Type risperiDONE [RisperDAL] 1 mg PO QAM 03/13/18 12/27/18 Unknown History Sertraline [Zoloft] 100 mg PO QDAY 08/26/18 12/27/18 Unknown History risperiDONE [RisperDAL] 0.5 mg PO HS 08/26/18 12/27/18 Unknown History Polyethylene Glycol 3350 [Miralax 17 gm PO QDAY #30 packet 11/05/18 12/27/18 Unknown Rx 3350] Aspirin EC 81 mg PO DAILY #30 11/19/18 12/27/18 Unknown Rx Docusate Sodium [Colace CAP] 100 mg PO BID #60 11/19/18 12/27/18 Unknown Rx Folic Acid [Folvite] 1 mg PO DAILY #30 tab 11/19/18 12/27/18 Unknown Rx Famotidine [Pepcid] 20 mg PO DAILY tablet 12/08/18 12/27/18 Unknown Rx Gabapentin [Neurontin] 100 mg PO QHS capsule 12/08/18 12/27/18 Unknown Rx Metoprolol [Lopressor TAB] 50 mg PO BID 30 Days tablet 12/08/18 12/27/18 Unknown Rx Sevelamer Carbonate [Renvela] 800 mg PO TIDWM tablet 12/08/18 12/27/18 Unknown Rx hydrALAZINE [Apresoline TAB] 100 mg PO Q8HR #120 tablet 12/08/18 12/27/18 Unknown Rx Acetaminophen [Acetaminophen TAB] 650 mg PO Q12H PRN 12/15/18 12/27/18 Unknown History Amino Acids/Protein Hydrolys 30 ml PO BID 12/15/18 12/27/18 Unknown History [Pro-Stat Sugar Free Liquid] Glucagon,Human Recombinant 1 mg IJ Q15MIN PRN 12/15/18 12/27/18 Unknown History [Glucagon Emergency Kit] Insulin Aspart [NovoLOG 100 See Protocol SQ QWEEK 12/15/18 12/27/18 Unknown History UNITS/ML VIAL] Epoetin Solitario 10,000 Unit [Procrit] 10,000 unit IV UMA PRN vial 12/18/18 12/27/18 Unknown Rx Lispro Insulin [HumaLOG] 0 unit SUB-Q ACHS units 12/18/18 12/27/18 Unknown Rx risperiDONE [RisperDAL] 0.5 mg PO QHS tablet 12/18/18 12/27/18 Unknown Rx Meropenem [Merrem] 1,000 mg IV Q24HR vial 01/16/19 Unknown Rx Active Medications: Generic Name Dose Route Start Last Admin Trade Name Freq PRN Reason Stop Dose Admin Acetaminophen 650 mg 12/26/18 21:40 01/10/19 18:33 Tylenol PO 650 mg Q4H PRN Administration Pain MILD(1-3)/Fever >100.5/HILL Lipase/Protease/Amylase 1 each 01/16/19 17:11 Mc Barrientos 10,500 Unit FEEDTUBE PRN PRN For Clogged Feeding Tube Aspirin 81 mg 12/27/18 10:00 01/23/19 09:59 Halfprin Ec PO 81 mg DAILY SANCHEZ Administration Diltiazem HCl 60 mg 01/22/19 10:00 01/23/19 10:00 Cardizem PO 60 mg BID SANCHEZ Administration Epoetin Solitario 20,000 unit 01/05/19 11:03 01/22/19 10:11 Procrit IV 20,000 unit UMA PRN Administration hemodialysis Famotidine 20 mg 12/27/18 10:00 01/23/19 10:00 Pepcid PO 20 mg DAILY SANCHEZ Administration Folic Acid 1 mg 12/27/18 10:00 01/23/19 10:00 Folvite PO 1 mg DAILY SANCHEZ Administration Gabapentin 100 mg 12/26/18 22:00 01/22/19 21:44 Neurontin PO 100 mg QHS SANCHEZ Administration Hydralazine HCl 100 mg 12/26/18 22:00 01/23/19 05:59 Apresoline PO 100 mg Q8HR SANCHEZ Administration Meropenem 1,000 mg/ Sodium 100 mls @ 100 mls/hr 01/05/19 11:00 01/23/19 09:58 Chloride IV 02/16/19 10:59 100 mls/hr Q24HR SANCHEZ Administration Vancomycin HCl 1 gm in 250 mls @ 167.007 mls/hr 01/06/19 20:00 01/22/19 21:46 Vancomycin/Ns 1 Gm/250 Ml IV 02/17/19 21:30 167.007 mls/hr TuThSa SANCHEZ Administration Dextrose 1,000 mls @ 45 mls/hr 01/14/19 13:00 01/14/19 12:45 D5w IV 45 mls/hr DIRECT SANCHEZ Administration Sodium Chloride 100 mls @ 999 mls/hr 01/19/19 09:29 Nacl 0.9% IV UMA PRN Hypotension Insulin Human Regular 0 units 01/14/19 00:00 01/23/19 06:36 Humulin R SUB-Q 2 units Q6HR SANCHEZ Administration Protocol Metoprolol Tartrate 100 mg 12/31/18 22:00 01/23/19 10:00 Lopressor PO 100 mg BID SANCHEZ Administration Morphine Sulfate 2 mg 01/21/19 04:08 01/21/19 04:22 Morphine IV 2 mg Q4H PRN Administration Pain, Moderate (4-6) Nitroglycerin 0.4 mg 01/21/19 04:05 01/21/19 04:15 Nitrostat SL 0.4 mg .Q5MIN PRN Administration Chest Pain Ondansetron HCl 4 mg 12/26/18 21:40 01/10/19 12:23 Zofran IV 4 mg Q8H PRN Administration Nausea And Vomiting Oxycodone/Acetaminophen 1 tab 01/05/19 08:30 01/23/19 00:01 Percocet 5/325 PO 1 tab Q6H PRN Administration Pain, Moderate (4-6) Risperidone 0.5 mg 12/26/18 22:00 01/22/19 21:43 Risperdal PO 0.5 mg QHS SANCHEZ Administration Risperidone 1 mg 12/27/18 10:00 01/23/19 10:00 Risperdal PO 1 mg QAM SANCHEZ Administration Sertraline HCl 100 mg 12/27/18 10:00 01/23/19 09:59 Zoloft PO 100 mg QDAY SANCHEZ Administration Simple Syrup 15 ml 01/16/19 17:11 Simple Syrup FEEDTUBE PRN PRN Hypoglycemia Simple Syrup 30 ml 01/16/19 17:11 Simple Syrup FEEDTUBE PRN PRN Hypoglycemia Sodium Bicarbonate 325 mg 01/16/19 17:11 Sodium Bicarbonate FEEDTUBE PRN PRN For Clogged Feeding Tube Sodium Chloride 10 ml 12/26/18 22:00 01/23/19 10:00 Sodium Chloride Flush Syringe 10 Ml IV 10 ml BID SANCHEZ Administration Sodium Chloride 10 ml 12/26/18 21:40 01/16/19 21:00 Sodium Chloride Flush Syringe 10 Ml IV 10 ml PRN PRN Administration LINE FLUSH Sodium Hypochlorite 1 applic 01/19/19 10:00 01/23/19 10:02 Dakin's Half Strength TP 1 applicatio QDAY SANCHEZ Administration
--- NOTE | 2019-01-23 11:31 | Progress Note ---
Assessment and Plan Assessment and plan: Patient is a 63-year-old -[place] man from [facility] with a plethora of co-morbidities including blindness, CVA, CHF, PPM/ICD, loop recorder since 2013 that is MRI compatible, IDDM type 2, sepsis left foot ulcer, afib, ESRD with complications on HD TTS, hypertension, AOCD and GERD who presented to [facility] with altered sensorium and decreased responsiveness. Decreased responsive and not eating at all for 2 days. Patient has failure to thrive, altered mentation and weight loss of 20 pounds since 12/08/2018. Severe Sepsis due to Necrotizing Unstagable sacral decubitus ulcer with ostemomylitis s/p OR on 01/01/2019 for open excisional debridement of necrotic and infected sacral wound noted a large amount of necrotic tissue debrided and two abscess cavities at the caudad portion of the wound with a copious amount of purulent drainage which was drained. Wound cultures 01/02/2019 ESBL Kleb, MDR Ecoli and E raffinosus resistant to penicillin: On meropenam and vanc per ID. Consult Vascular surgery for central line placement, planned for diverting colostomy, family has agreed, Cardiology re-evaluated for surgery, input noted, high CV risk. d/w Dr. Villela, Vascular surgery placed central line placement for Merem, 01/08/19, now ongoing.Further debridement done 01/14/19 pateint noted to have lost over 150cc Of blood during this procedure. Acute on chronic Anemia of AOCD: Continue epoetin, total of 8 units PRBC, fo llow cbc- no occult GI bleed noted. GI input noted, No retroperitoneal bleed noted. Although 150cc Of blood loss documented during debridement No further bleeding from sacral wound noted Dakins moistened kerlex packing started Pt is s/p x1 DDVAP Chest pain, now resolved Acute metabolic encephalopathy due to the above Acute systolic exacerbation of CHF (congestive heart failure): treat via Ultrafiltration during HD Afib with RVR: rate control only and optimize meds per Cardiology ESRD needing dialysis: Nephology is managing, Continue hemo dialysis Insulin dependent diabetes mellitus, A1c is 4.2: insulin was dc Severe malnutrition with FTT: 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, cont oral diet, network operations specialist input appreciated, PEG tube placed on 01/02/19 Hypertension: Continue antihypertensives h/o Peripheral neuropathy: Continue gabapentin Elevated troponin, Secondary to end-stage renal disease, chf and afib, Cardiology input appreciated DVT prophylaxis On heparin and GI prophylaxis Poor prognosis discussed with family member Mr Jennifer Mims. Per discussion with Surgery and as documented by them "Very poor prognosis for wound healing. I do not feel wound will ever heal due to extensive nature, poor nutrition, bedbound status, among other comorbidities. Recommend hospice." Family not accepting at this time. Ok to dc to NH when bed available. Would hold off on vac and continue dakins dressings to wound. May follow up in wound care center after dc. Discussed with case management. Awaiting placement History Interval history: c/o chest pain, night of 01/20 now resolved No new complaints Hospitalist Physical - Physical exam Narrative exam: Gen: Not in acute distress, lying in bed,obese,ill looking HEENT: Normocephalic, atraumatic Neck: supple, no JVD Heart: S1 and S2 reg, no murmurs, rubs or gallop Lungs: Clear, no crackles, no wheeze Abd: soft, non tender, non distended, normal BS, PEg tube Ext: Contracted, no clubbing, no cyanosis, Sacrum: sacral decub ulcer Neuro: Lethargic, - Constitutional Vitals: Temp Pulse Resp BP Pulse Ox 97.6 F 77 20 120/71 98 01/23/19 04:35 01/23/19 08:00 01/23/19 08:00 01/23/19 04:35 01/23/19 04:35 General appearance: Present: no acute distress Results - Labs CBC & Chem 7: 01/23/19 07:00 01/23/19 07:00 Labs: Laboratory Last Values WBC 7.0 K/mm3 (4.5-11.0) 01/23/19 07:00 RBC 3.17 M/mm3 (3.65-5.03) L 01/23/19 07:00 Hgb 9.3 gm/dl (11.8-15.2) L 01/23/19 07:00 Hct 28.5 % (35.5-45.6) L 01/23/19 07:00 MCV 90 fl (84-94) 01/23/19 07:00 MCH 29 pg (28-32) 01/23/19 07:00 MCHC 33 % (32-34) 01/23/19 07:00 RDW 17.9 % (13.2-15.2) H 01/23/19 07:00 Plt Count 213 K/mm3 (140-440) 01/23/19 07:00 Lymph % (Auto) 8.8 % (13.4-35.0) L 01/23/19 07:00 Blaine % (Auto) 11.1 % (0.0-7.3) H 01/23/19 07:00 Eos % (Auto) 11.9 % (0.0-4.3) H 01/23/19 07:00 Baso % (Auto) 1.3 % (0.0-1.8) 01/23/19 07:00 Lymph # 0.6 K/mm3 (1.2-5.4) L 01/23/19 07:00 Blaine # 0.8 K/mm3 (0.0-0.8) 01/23/19 07:00 Eos # 0.8 K/mm3 (0.0-0.4) H 01/23/19 07:00 Baso # 0.1 K/mm3 (0.0-0.1) 01/23/19 07:00 Add Manual Diff Complete 01/03/19 17:16 Total Counted 100 01/03/19 17:16 Seg Neutrophils % 66.9 % (40.0-70.0) 01/23/19 07:00 Seg Neuts % (Manual) 96.0 % (40.0-70.0) H 01/03/19 17:16 0 % 01/03/19 17:16 2.0 % (13.4-35.0) L 01/03/19 17:16 Reactive Lymphs % (Man) 0 % 01/03/19 17:16 2.0 % (0.0-7.3) 01/03/19 17:16 0 % (0.0-4.3) 01/03/19 17:16 0 % (0.0-1.8) 01/03/19 17:16 0 % 01/03/19 17:16 0 % 01/03/19 17:16 0 % 01/03/19 17:16 0 % 01/03/19 17:16 Nucleated RBC % Not Reportable 01/03/19 17:16 Seg Neutrophils # 4.7 K/mm3 (1.8-7.7) 01/23/19 07:00 Seg Neutrophils # Man 10.8 K/mm3 (1.8-7.7) H 01/03/19 17:16 Band Neutrophils # 0.0 K/mm3 01/03/19 17:16 0.2 K/mm3 (1.2-5.4) L 01/03/19 17:16 Abs React Lymphs (Man) 0.0 K/mm3 01/03/19 17:16 0.2 K/mm3 (0.0-0.8) 01/03/19 17:16 0.0 K/mm3 (0.0-0.4) 01/03/19 17:16 0.0 K/mm3 (0.0-0.1) 01/03/19 17:16 0.0 K/mm3 01/03/19 17:16 0.0 K/mm3 01/03/19 17:16 0.0 K/mm3 01/03/19 17:16 Blast Cells # 0.0 K/mm3 01/03/19 17:16 WBC Morphology Not Reportable 01/03/19 17:16 Hypersegmented Neuts Not Reportable 01/03/19 17:16 Hyposegmented Neuts Not Reportable 01/03/19 17:16 Hypogranular Neuts Not Reportable 01/03/19 17:16 Not Reportable 01/03/19 17:16 Not Reportable 01/03/19 17:16 Not Reportable 01/03/19 17:16 Not Reportable 01/03/19 17:16 Not Reportable 01/03/19 17:16 Not Reportable 01/03/19 17:16 Consistent w auto 01/03/19 17:16 Not Reportable 01/03/19 17:16 Plt Clumps, EDTA Not Reportable 01/03/19 17:16 Not Reportable 01/03/19 17:16 Not Reportable 01/03/19 17:16 Not Reportable 01/03/19 17:16 Plt Morphology Comment Not Reportable 01/03/19 17:16 RBC Morphology Not Reportable 01/03/19 17:16 Dimorphic RBCs Not Reportable 01/03/19 17:16 Not Reportable 01/03/19 17:16 1+ 01/03/19 17:16 Few 01/03/19 17:16 1+ 01/03/19 17:16 Not Reportable 01/03/19 17:16 Not Reportable 01/03/19 17:16 Not Reportable 01/03/19 17:16 Not Reportable 01/03/19 17:16 Not Reportable 01/03/19 17:16 Few 01/03/19 17:16 Not Reportable 01/03/19 17:16 Few 01/03/19 17:16 Not Reportable 01/03/19 17:16 Not Reportable 01/03/19 17:16 Not Reportable 01/03/19 17:16 Not Reportable 01/03/19 17:16 Not Reportable 01/03/19 17:16 Not Reportable 01/03/19 17:16 Not Reportable 01/03/19 17:16 Acanthocytes (Spur) Not Reportable 01/03/19 17:16 Rouleaux Not Reportable 01/03/19 17:16 Not Reportable 01/03/19 17:16 Not Reportable 01/03/19 17:16 Not Reportable 01/03/19 17:16 Not Reportable 01/03/19 17:16 Hem Pathologist Commnt No 01/03/19 17:16 PT 18.0 Sec. (12.2-14.9) H 01/02/19 05:39 INR 1.39 (0.87-1.13) H 01/02/19 05:39 Sodium 133 mmol/L (137-145) L 01/23/19 07:00 Potassium 4.9 mmol/L (3.6-5.0) 01/23/19 07:00 Chloride 96.1 mmol/L (98-107) L 01/23/19 07:00 Carbon Dioxide 30 mmol/L (22-30) 01/23/19 07:00 12 mmol/L 01/23/19 07:00 BUN 24 mg/dL (9-20) H 01/23/19 07:00 1.9 mg/dL (0.8-1.5) H 01/23/19 07:00 Estimated GFR 43 ml/min 01/23/19 07:00 13 % 01/23/19 07:00 Glucose 128 mg/dL (75-100) H 01/23/19 07:00 POC Glucose 156 (70-105) H 01/23/19 06:32 < 4.2 % (4-6) 12/26/18 17:12 Lactic Acid 1.10 mmol/L (0.7-2.0) 12/27/18 07:04 Calcium 9.2 mg/dL (8.4-10.2) 01/23/19 07:00 Phosphorus 2.90 mg/dL (2.5-4.5) D 01/05/19 04:56 Magnesium 2.00 mg/dL (1.7-2.3) 01/05/19 04:56 0.20 mg/dL (0.1-1.2) 01/07/19 11:16 AST 12 units/L (5-40) 01/07/19 11:16 ALT < 5 units/L (7-56) L 01/07/19 11:16 92 units/L (35-129) 01/07/19 11:16 29 units/L (55-170) L 12/26/18 17:12 0.201 ng/mL (0.00-0.029) H* 01/21/19 08:05 5.7 g/dL (6.3-8.2) L 01/07/19 11:16 2.0 g/dL (3.9-5) L 01/07/19 11:16 0.5 % 01/07/19 11:16 Triglycerides 46 mg/dL (2-149) 01/21/19 04:23 Cholesterol 64 mg/dL (50-199) 01/21/19 04:23 34 mg/dL (50-130) L 01/21/19 04:23 27 mg/dL (40-59) L 01/21/19 04:23 2.37 % 01/21/19 04:23 PTH Intact 178.6 pg/mL (15-65) H 01/01/19 17:32 Random Vancomycin 14.3 ug/mL (0-40.0) 01/15/19 10:57 Hepatitis A IgM Ab Non-reactive (NonReactive) 01/22/19 10:34 Hep Bs Antigen Non-reactive (Negative) 01/22/19 10:34 Hep B Core IgM Ab Non-reactive (NonReactive) 01/22/19 10:34 Non-reactive (NonReactive) 01/22/19 10:34 Blood Type O POSITIVE 01/16/19 15:06 Antibody Screen Negative 01/16/19 15:06 Crossmatch See Detail 01/16/19 15:06 Active Medications - Current Medications Current Medications: Generic Name Dose Route Start Last Admin Trade Name Freq PRN Reason Stop Dose Admin Acetaminophen 650 mg 12/26/18 21:40 01/10/19 18:33 Tylenol PO 650 mg Q4H PRN Administration Pain MILD(1-3)/Fever >100.5/HILL Lipase/Protease/Amylase 1 each 01/16/19 17:11 Pancreazkaren Barrientos 10,500 Unit FEEDTUBE PRN PRN For Clogged Feeding Tube Aspirin 81 mg 12/27/18 10:00 01/23/19 09:59 Halfprin Ec PO 81 mg DAILY SANCHEZ Administration Diltiazem HCl 60 mg 01/22/19 10:00 01/23/19 10:00 Cardizem PO 60 mg BID SANCHEZ Administration Epoetin Solitario 20,000 unit 01/05/19 11:03 01/22/19 10:11 Procrit IV 20,000 unit UMA PRN Administration hemodialysis Famotidine 20 mg 12/27/18 10:00 01/23/19 10:00 Pepcid PO 20 mg DAILY SANCHEZ Administration Folic Acid 1 mg 12/27/18 10:00 01/23/19 10:00 Folvite PO 1 mg DAILY SANCHEZ Administration Gabapentin 100 mg 12/26/18 22:00 01/22/19 21:44 Neurontin PO 100 mg QHS SANCHEZ Administration Hydralazine HCl 100 mg 12/26/18 22:00 01/23/19 05:59 Apresoline PO 100 mg Q8HR SANCHEZ Administration Meropenem 1,000 mg/ Sodium 100 mls @ 100 mls/hr 01/05/19 11:00 01/23/19 09:58 Chloride IV 02/16/19 10:59 100 mls/hr Q24HR SANCHEZ Administration Vancomycin HCl 1 gm in 250 mls @ 167.007 mls/hr 01/06/19 20:00 01/22/19 21:46 Vancomycin/Ns 1 Gm/250 Ml IV 02/17/19 21:30 167.007 mls/hr TuThSa SANCHEZ Administration Dextrose 1,000 mls @ 45 mls/hr 01/14/19 13:00 01/14/19 12:45 D5w IV 45 mls/hr DIRECT SANCHEZ Administration Sodium Chloride 100 mls @ 999 mls/hr 01/19/19 09:29 Nacl 0.9% IV UMA PRN Hypotension Insulin Human Regular 0 units 01/14/19 00:00 01/23/19 06:36 Humulin R SUB-Q 2 units Q6HR SANCHEZ Administration Protocol Metoprolol Tartrate 100 mg 12/31/18 22:00 01/23/19 10:00 Lopressor PO 100 mg BID SANCHEZ Administration Morphine Sulfate 2 mg 01/21/19 04:08 01/21/19 04:22 Morphine IV 2 mg Q4H PRN Administration Pain, Moderate (4-6) Nitroglycerin 0.4 mg 01/21/19 04:05 01/21/19 04:15 Nitrostat SL 0.4 mg .Q5MIN PRN Administration Chest Pain Ondansetron HCl 4 mg 12/26/18 21:40 01/10/19 12:23 Zofran IV 4 mg Q8H PRN Administration Nausea And Vomiting Oxycodone/Acetaminophen 1 tab 01/05/19 08:30 01/23/19 00:01 Percocet 5/325 PO 1 tab Q6H PRN Administration Pain, Moderate (4-6) Risperidone 0.5 mg 12/26/18 22:00 01/22/19 21:43 Risperdal PO 0.5 mg QHS SANCHEZ Administration Risperidone 1 mg 12/27/18 10:00 01/23/19 10:00 Risperdal PO 1 mg QAM SANCHEZ Administration Sertraline HCl 100 mg 12/27/18 10:00 01/23/19 09:59 Zoloft PO 100 mg QDAY SANCHEZ Administration Simple Syrup 15 ml 01/16/19 17:11 Simple Syrup FEEDTUBE PRN PRN Hypoglycemia Simple Syrup 30 ml 01/16/19 17:11 Simple Syrup FEEDTUBE PRN PRN Hypoglycemia Sodium Bicarbonate 325 mg 01/16/19 17:11 Sodium Bicarbonate FEEDTUBE PRN PRN For Clogged Feeding Tube Sodium Chloride 10 ml 12/26/18 22:00 01/23/19 10:00 Sodium Chloride Flush Syringe 10 Ml IV 10 ml BID SANCHEZ Administration Sodium Chloride 10 ml 12/26/18 21:40 01/16/19 21:00 Sodium Chloride Flush Syringe 10 Ml IV 10 ml PRN PRN Administration LINE FLUSH Sodium Hypochlorite 1 applic 01/19/19 10:00 01/23/19 10:02 Dakin's Half Strength TP 1 applicatio QDAY SANCHEZ Administration Nutrition/Malnutrition Assess - Dietary Evaluation Nutrition/Malnutrition Findings: Nutrition Notes Start: 12/27/18 17:15 Freq: Status: Active Protocol: Document 01/16/19 17:08 RM (Rec: 01/16/19 17:11 RM [id number]) Nutrition Notes Initial or Follow up Reassessment Current Diagnosis CKD (stage V CKD),Diabetes, Sepsis,Hypertension Other Pertinent Diagnosis Hx CVA,S/P PEG, Sacral wound, FTT, acute encephalopathy Current Diet No diet ordered Labs/Tests Reviewed Pertinent Medications Reviewed Height 5 ft 7 in Weight 85.4 kg [place] Body Weight (kg) 67.27 BMI 29.5 Subjective/Other Information Observed Glucerna 1.2 infusing at goal rate. Percent of energy/protein needs met: 97%/100% Burn Absent Trauma Absent #2 Nutrition Diagnosis Increased nutrient needs ( specify in comment below) Diagnosis Progress(for reassessment Continues documentation) #1 Nutrition Diagnosis Inadequate oral intake Diagnosis Progress(for reassessment Continues documentation) Is patient on ventilator? No Is Patient Ambulatory and/or Out of Bed No REE-([facility]-confined to bed) 1928.268 Calculation Used for Recommendations [facility] Additional Notes Pro needs 1.2-1.4g/k- 118g/day Fluid needs 1-1.5L/day Nutrition Intervention Nutrition Support: Glucerna 1.2 at 65 ml/hr. Water flush of 100 mls q 4 hrs . Kcal 1,872 Protein (gm) 94 Carbohydrates (gm) 179 Fat (gm) 94 Fluid (mL) 1,256 Fiber (gm) 25 Goal #1 Continue to meet at least 75% of calorie and protein needs via TF Anticipated Discharge Needs: Glucerna 1.2 Follow-Up By: 01/23/19 Additional Comments Follow for TF tolerance
[2019-01-23] MEDS: NEURONTIN PO SCH (21:16)
[2019-01-23] MEDS: HEPARIN SUB-Q SCH (21:19)
[2019-01-24 05:24] LABS: Basophils # (Auto) 0.1 K/mm3 (0.0-0.1); Basophils % (Auto) 1.3 % (0.0-1.8); Hematocrit 29.1 % (35.5-45.6); Hemoglobin 9.4 gm/dl (11.8-15.2); Lymphocytes # (Auto) 0.9 K/mm3 (1.2-5.4); Lymphocytes % (Auto) 12.7 % (13.4-35.0); Mean Corpuscular HGB Conc 32 % (32-34); Mean Corpuscular Volume 90 fl (84-94); Monocytes # (Auto) 0.7 K/mm3 (0.0-0.8); Monocytes % (Auto) 10.2 % (0.0-7.3); Platelet Count 262 K/mm3 (140-440); Red Blood Count 3.24 M/mm3 (3.65-5.03); Red Cell Distribution Width 18.6 % (13.2-15.2)
[2019-01-24 05:25] LABS: Calcium 9.5 mg/dL (8.4-10.2)
[2019-01-24] MEDS: HumuLIN R SUB-Q SCH ×4 (05:36→18:00)
[2019-01-24] MEDS: APRESOLINE PO SCH ×3 (06:18→22:37)
[2019-01-24] MEDS: PERCOCET 5/325 PO PRN ×2 (06:44→23:12)
--- NOTE | 2019-01-24 09:37 | Progress Note ---
Subjective Principal diagnosis: afib Interval history: Patient was seen today for follow-up, regarding multiple renal related issues Currently on dialysis Saturday Potassium was noted to be 6.0 Interdisciplinary Notes were also reviewed from past 24 hours Vitals labs intake output medications: Reviewed Past medical history: Reviewed Allergies: Reviewed Social history: Reviewed Family history: Reviewed Physical examination Gen.: No acute distress HEENT: Mild pallor nor icterus no uremic order Neck: Supple without any mass or JVD Chest: Clear to auscultation anteriorly Heart: Regular rate and rhythm S1 and S2 heard Abdomen: Soft nontender no suprapubic fullness no masses no renal bruit Extremity: Edema , no peripheral cyanosis Skin: No petechial rashes dry skin Assessment and plan End-stage renal disease: Continue with hemodialysis treatment 3 times per week as tolerated, dialysis nurse to monitor hemodynamics closely for ultrafiltration Given the patient's potassium has been relatively on the high side would like to change his dialysis prescription, increase his treatment time We will also like to do a post dialysis BUN to assess the adequacy of dialysis, discussed with the dialysis nurse to obtain a postdialysis BUN Patient was also seen in supervised on hemodialysis as well, advised the nurse to increase her treatment time to 4 hours Hypertension volume: Continue to monitor and follow Anemia in end-stage renal disease currently on erythropoietin continue to monitor Secondary hyperparathyroidism: Periodically monitor phosphorus and PTH level From dialysis standpoint his hemoglobin is currently stable at 9.4 platelet count 262,000 Hyperkalemia potassium is currently 6.0, he will require relatively longer dialysis time Partly this could be also due to heparin, will do a post dialysis BUN to assess the adequacy of dialysis We'll continue to follow and make recommendation from renal standpoint Objective - Vital Signs Vital signs: Vital Signs - 12hr 01/23/19 01/24/19 23:37 06:20 Temperature 99.3 F 98.4 F Pulse Rate 74 99 H Respiratory 20 20 Rate Blood Pressure 113/70 133/80 O2 Sat by Pulse 97 100 Oximetry - Lab 01/25/19 05:05 01/25/19 05:05 Most recent lab results Calcium 9.5 mg/dL (8.4-10.2) 01/24/19 04:30 Phosphorus 2.90 mg/dL (2.5-4.5) D 01/05/19 04:56 Magnesium 2.00 mg/dL (1.7-2.3) 01/05/19 04:56 Medications & Allergies - Medications Allergies/Adverse Reactions: Allergies haloperidol [From Haldol] Adverse Reaction (Verified 03/13/18 12:10) Unknown haloperidol lactate [From Haldol] Adverse Reaction (Verified 03/13/18 12:10) Unknown Home Medications: Home Medications Medication Instructions Recorded Confirmed Last Taken Type risperiDONE [RisperDAL] 1 mg PO QAM 03/13/18 12/27/18 Unknown History Sertraline [Zoloft] 100 mg PO QDAY 08/26/18 12/27/18 Unknown History risperiDONE [RisperDAL] 0.5 mg PO HS 08/26/18 12/27/18 Unknown History Polyethylene Glycol 3350 [Miralax 17 gm PO QDAY #30 packet 11/05/18 12/27/18 Unknown Rx 3350] Aspirin EC 81 mg PO DAILY #30 11/19/18 12/27/18 Unknown Rx Docusate Sodium [Colace CAP] 100 mg PO BID #60 11/19/18 12/27/18 Unknown Rx Folic Acid [Folvite] 1 mg PO DAILY #30 tab 11/19/18 12/27/18 Unknown Rx Famotidine [Pepcid] 20 mg PO DAILY tablet 12/08/18 12/27/18 Unknown Rx Gabapentin [Neurontin] 100 mg PO QHS capsule 12/08/18 12/27/18 Unknown Rx Metoprolol [Lopressor TAB] 50 mg PO BID 30 Days tablet 12/08/18 12/27/18 Unk nown Rx Sevelamer Carbonate [Renvela] 800 mg PO TIDWM tablet 12/08/18 12/27/18 Unknown Rx hydrALAZINE [Apresoline TAB] 100 mg PO Q8HR #120 tablet 12/08/18 12/27/18 Unknown Rx Acetaminophen [Acetaminophen TAB] 650 mg PO Q12H PRN 12/15/18 12/27/18 Unknown History Amino Acids/Protein Hydrolys 30 ml PO BID 12/15/18 12/27/18 Unknown History [Pro-Stat Sugar Free Liquid] Glucagon,Human Recombinant 1 mg IJ Q15MIN PRN 12/15/18 12/27/18 Unknown History [Glucagon Emergency Kit] Insulin Aspart [NovoLOG 100 See Protocol SQ QWEEK 12/15/18 12/27/18 Unknown History UNITS/ML VIAL] Epoetin Solitario 10,000 Unit [Procrit] 10,000 unit IV UMA PRN vial 12/18/18 12/27/18 Unknown Rx Lispro Insulin [HumaLOG] 0 unit SUB-Q ACHS units 12/18/18 12/27/18 Unknown Rx risperiDONE [RisperDAL] 0.5 mg PO QHS tablet 12/18/18 12/27/18 Unknown Rx Meropenem [Merrem] 1,000 mg IV Q24HR vial 01/16/19 Unknown Rx Active Medications: Generic Name Dose Route Start Last Admin Trade Name Freq PRN Reason Stop Dose Admin Acetaminophen 650 mg 12/26/18 21:40 01/10/19 18:33 Tylenol PO 650 mg Q4H PRN Administration Pain MILD(1-3)/Fever >100.5/HILL Lipase/Protease/Amylase 1 each 01/16/19 17:11 Pancreaze 10,500 Unit FEEDTUBE PRN PRN For Clogged Feeding Tube Aspirin 81 mg 12/27/18 10:00 01/23/19 09:59 Halfprin Ec PO 81 mg DAILY SANCHEZ Administration Diltiazem HCl 60 mg 01/22/19 10:00 01/23/19 21:14 Cardizem PO 60 mg BID SANCHEZ Administration Epoetin Solitario 20,000 unit 01/05/19 11:03 01/22/19 10:11 Procrit IV 20,000 unit UMA PRN Administration hemodialysis Famotidine 20 mg 12/27/18 10:00 01/23/19 10:00 Pepcid PO 20 mg DAILY SANCHEZ Administration Folic Acid 1 mg 12/27/18 10:00 01/23/19 10:00 Folvite PO 1 mg DAILY SANCHEZ Administration Gabapentin 100 mg 12/26/18 22:00 01/23/19 21:16 Neurontin PO 100 mg QHS SANCHEZ Administration Heparin Sodium (Porcine) 5,000 unit 01/23/19 22:00 01/23/19 21:19 Heparin SUB-Q 5,000 unit Q12HR SANCHEZ Administration Hydralazine HCl 100 mg 12/26/18 22:00 01/24/19 06:18 Apresoline PO 100 mg Q8HR SANCHEZ Administration Meropenem 1,000 mg/ Sodium 100 mls @ 100 mls/hr 01/05/19 11:00 01/23/19 09:58 Chloride IV 02/16/19 10:59 100 mls/hr Q24HR SANCHEZ Administration Vancomycin HCl 1 gm in 250 mls @ 167.007 mls/hr 01/06/19 20:00 01/22/19 21:46 Vancomycin/Ns 1 Gm/250 Ml IV 02/17/19 21:30 167.007 mls/hr TuThSa SANCHEZ Administration Dextrose 1,000 mls @ 45 mls/hr 01/14/19 13:00 01/14/19 12:45 D5w IV 45 mls/hr DIRECT SANCHEZ Administration Sodium Chloride 100 mls @ 999 mls/hr 01/19/19 09:29 Nacl 0.9% IV UMA PRN Hypotension Insulin Human Regular 0 units 01/14/19 00:00 01/24/19 06:21 Humulin R SUB-Q Not Given Q6HR [facility] Protocol Metoprolol Tartrate 100 mg 12/31/18 22:00 01/23/19 21:14 Lopressor PO 100 mg BID SANCHEZ Administration Morphine Sulfate 2 mg 01/21/19 04:08 01/21/19 04:22 Morphine IV 2 mg Q4H PRN Administration Pain, Moderate (4-6) Nitroglycerin 0.4 mg 01/21/19 04:05 01/21/19 04:15 Nitrostat SL 0.4 mg .Q5MIN PRN Administration Chest Pain Ondansetron HCl 4 mg 12/26/18 21:40 01/10/19 12:23 Zofran IV 4 mg Q8H PRN Administration Nausea And Vomiting Oxycodone/Acetaminophen 1 tab 01/05/19 08:30 01/24/19 06:44 Percocet 5/325 PO 1 tab Q6H PRN Administration Pain, Moderate (4-6) Risperidone 0.5 mg 12/26/18 22:00 01/23/19 21:12 Risperdal PO 0.5 mg QHS SANCHEZ Administration Risperidone 1 mg 12/27/18 10:00 01/23/19 10:00 Risperdal PO 1 mg QAM SANCHEZ Administration Sertraline HCl 100 mg 12/27/18 10:00 01/23/19 09:59 Zoloft PO 100 mg QDAY SANCHEZ Administration Simple Syrup 15 ml 01/16/19 17:11 Simple Syrup FEEDTUBE PRN PRN Hypoglycemia Simple Syrup 30 ml 01/16/19 17:11 Simple Syrup FEEDTUBE PRN PRN Hypoglycemia Sodium Bicarbonate 325 mg 01/16/19 17:11 Sodium Bicarbonate FEEDTUBE PRN PRN For Clogged Feeding Tube Sodium Chloride 10 ml 12/26/18 22:00 01/23/19 21:13 Sodium Chloride Flush Syringe 10 Ml IV 10 ml BID SANCHEZ Administration Sodium Chloride 10 ml 12/26/18 21:40 01/16/19 21:00 Sodium Chloride Flush Syringe 10 Ml IV 10 ml PRN PRN Administration LINE FLUSH Sodium Hypochlorite 1 applic 01/19/19 10:00 01/23/19 10:02 Dakin's Half Strength TP 1 applicatio QDAY SANCHEZ Administration
[2019-01-24] MEDS: PEPCID PO SCH (10:00)
[2019-01-24] MEDS: RisperDAL PO SCH ×2 (10:00→22:36)
[2019-01-24] MEDS: FOLVITE PO SCH (10:00)
[2019-01-24] MEDS: DAKIN'S HALF STRENGTH TP SCH (10:00)
[2019-01-24] MEDS: LOPRESSOR PO SCH ×2 (10:00→22:37)
[2019-01-24] MEDS: CARDIZEM PO SCH ×2 (10:00→22:36)
[2019-01-24] MEDS: SODIUM CHLORIDE FLUSH SYRINGE 10 ML IV SCH ×2 (10:00→22:38)
[2019-01-24] MEDS: HEPARIN SUB-Q SCH ×2 (10:00→22:38)
[2019-01-24] MEDS: HALFPRIN EC PO SCH (10:00)
[2019-01-24] MEDS: MERREM 1,000 MG in NACL 0.9% 100 ML IV SCH (10:00)
[2019-01-24] MEDS: ZOLOFT PO SCH (10:00)
--- NOTE | 2019-01-24 11:15 | Progress Note ---
Assessment and Plan Assessment and plan: Patient is a 63-year-old -[place] man from [facility] with a plethora of co-morbidities including blindness, CVA, CHF, PPM/ICD, loop recorder since 2013 that is MRI compatible, IDDM type 2, sepsis left foot ulcer, afib, ESRD with complications on HD TTS, hypertension, AOCD and GERD who presented to [facility] with altered sensorium and decreased responsiveness. Decreased responsive and not eating at all for 2 days. Patient has failure to thrive, altered mentation and weight loss of 20 pounds since 12/08/2018. Severe Sepsis due to Necrotizing Unstagable sacral decubitus ulcer with ostemomylitis s/p OR on 01/01/2019 for open excisional debridement of necrotic and infected sacral wound noted a large amount of necrotic tissue debrided and two abscess cavities at the caudad portion of the wound with a copious amount of purulent drainage which was drained. Wound cultures 01/02/2019 ESBL Kleb, MDR Ecoli and E raffinosus resistant to penicillin: On meropenam and vanc per ID. Consult Vascular surgery for central line placement, planned for diverting colostomy, family has agreed, Cardiology re-evaluated for surgery, input noted, high CV risk. d/w Dr. Villela, Vascular surgery placed central line placement for Merem, 01/08/19, now ongoing.Further debridement done 01/14/19 pateint noted to have lost over 150cc Of blood during this procedure. Acute on chronic Anemia of AOCD: Continue epoetin, total of 8 units PRBC, fo llow cbc- no occult GI bleed noted. GI input noted, No retroperitoneal bleed noted. Although 150cc Of blood loss documented during debridement No further bleeding from sacral wound noted Dakins moistened kerlex packing started Pt is s/p x1 DDVAP Chest pain, now resolved Acute metabolic encephalopathy due to the above Acute systolic exacerbation of CHF (congestive heart failure): treat via Ultrafiltration during HD Afib with RVR: rate control only and optimize meds per Cardiology ESRD needing dialysis: Nephology is managing, Continue hemo dialysis Insulin dependent diabetes mellitus, A1c is 4.2: insulin was dc Severe malnutrition with FTT: 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, cont oral diet, senior applications engineer input appreciated, PEG tube placed on 01/02/19 Hypertension: Continue antihypertensives h/o Peripheral neuropathy: Continue gabapentin Elevated troponin, Secondary to end-stage renal disease, chf and afib, Cardiology input appreciated DVT prophylaxis On heparin and GI prophylaxis Hyperkalemia For dialysis today Poor prognosis discussed with family member Mr Jennifer Mims. Per discussion with Surgery and as documented by them "Very poor prognosis for wound healing. I do not feel wound will ever heal due to extensive nature, poor nutrition, bedbound status, among other comorbidities. Recommend hospice." Family not accepting at this time. Ok to dc to NH when bed available. Would hold off on vac and continue dakins dressings to wound. May follow up in wound care center after dc. Discussed with case management. Awaiting placement History Interval history: c/o chest pain, night of 01/20 now resolved No new complaints Hospitalist Physical - Physical exam Narrative exam: Gen: Not in acute distress, lying in bed,obese,ill looking HEENT: Normocephalic, atraumatic Neck: supple, no JVD Heart: S1 and S2 reg, no murmurs, rubs or gallop Lungs: Clear, no crackles, no wheeze Abd: soft, non tender, non distended, normal BS, PEg tube Ext: Contracted, no clubbing, no cyanosis, Sacrum: sacral decub ulcer Neuro: Lethargic, - Constitutional Vitals: Temp Pulse Resp BP Pulse Ox 98.4 F 80 20 131/70 100 01/24/19 08:50 01/24/19 10:00 01/24/19 08:50 01/24/19 10:00 01/24/19 06:20 General appearance: Present: no acute distress Results - Labs CBC & Chem 7: 01/24/19 04:30 01/24/19 04:30 Labs: Laboratory Last Values WBC 7.0 K/mm3 (4.5-11.0) 01/24/19 04:30 RBC 3.24 M/mm3 (3.65-5.03) L 01/24/19 04:30 Hgb 9.4 gm/dl (11.8-15.2) L 01/24/19 04:30 Hct 29.1 % (35.5-45.6) L 01/24/19 04:30 MCV 90 fl (84-94) 01/24/19 04:30 MCH 29 pg (28-32) 01/24/19 04:30 MCHC 32 % (32-34) 01/24/19 04:30 RDW 18.6 % (13.2-15.2) H 01/24/19 04:30 Plt Count 262 K/mm3 (140-440) 01/24/19 04:30 Lymph % (Auto) 12.7 % (13.4-35.0) L 01/24/19 04:30 [place] % (Auto) 10.2 % (0.0-7.3) H 01/24/19 04:30 Eos % (Auto) 15.0 % (0.0-4.3) H 01/24/19 04:30 Baso % (Auto) 1.3 % (0.0-1.8) 01/24/19 04:30 Lymph # 0.9 K/mm3 (1.2-5.4) L 01/24/19 04:30 [place] # 0.7 K/mm3 (0.0-0.8) 01/24/19 04:30 Eos # 1.0 K/mm3 (0.0-0.4) H 01/24/19 04:30 Baso # 0.1 K/mm3 (0.0-0.1) 01/24/19 04:30 Add Manual Diff Complete 01/03/19 17:16 Total Counted 100 01/03/19 17:16 Seg Neutrophils % 60.8 % (40.0-70.0) 01/24/19 04:30 Seg Neuts % (Manual) 96.0 % (40.0-70.0) H 01/03/19 17:16 0 % 01/03/19 17:16 2.0 % (13.4-35.0) L 01/03/19 17:16 Reactive Lymphs % (Man) 0 % 01/03/19 17:16 2.0 % (0.0-7.3) 01/03/19 17:16 0 % (0.0-4.3) 01/03/19 17:16 0 % (0.0-1.8) 01/03/19 17:16 0 % 01/03/19 17:16 0 % 01/03/19 17:16 0 % 01/03/19 17:16 0 % 01/03/19 17:16 Nucleated RBC % Not Reportable 01/03/19 17:16 Seg Neutrophils # 4.3 K/mm3 (1.8-7.7) 01/24/19 04:30 Seg Neutrophils # Man 10.8 K/mm3 (1.8-7.7) H 01/03/19 17:16 Band Neutrophils # 0.0 K/mm3 01/03/19 17:16 0.2 K/mm3 (1.2-5.4) L 01/03/19 17:16 Abs React Lymphs (Man) 0.0 K/mm3 01/03/19 17:16 0.2 K/mm3 (0.0-0.8) 01/03/19 17:16 0.0 K/mm3 (0.0-0.4) 01/03/19 17:16 0.0 K/mm3 (0.0-0.1) 01/03/19 17:16 0.0 K/mm3 01/03/19 17:16 0.0 K/mm3 01/03/19 17:16 0.0 K/mm3 01/03/19 17:16 Blast Cells # 0.0 K/mm3 01/03/19 17:16 WBC Morphology Not Reportable 01/03/19 17:16 Hypersegmented Neuts Not Reportable 01/03/19 17:16 Hyposegmented Neuts Not Reportable 01/03/19 17:16 Hypogranular Neuts Not Reportable 01/03/19 17:16 Not Reportable 01/03/19 17:16 Not Reportable 01/03/19 17:16 Not Reportable 01/03/19 17:16 Not Reportable 01/03/19 17:16 Not Reportable 01/03/19 17:16 Not Reportable 01/03/19 17:16 Consistent w auto 01/03/19 17:16 Not Reportable 01/03/19 17:16 Plt Clumps, EDTA Not Reportable 01/03/19 17:16 Not Reportable 01/03/19 17:16 Not Reportable 01/03/19 17:16 Not Reportable 01/03/19 17:16 Plt Morphology Comment Not Reportable 01/03/19 17:16 RBC Morphology Not Reportable 01/03/19 17:16 Dimorphic RBCs Not Reportable 01/03/19 17:16 Not Reportable 01/03/19 17:16 1+ 01/03/19 17:16 Few 01/03/19 17:16 1+ 01/03/19 17:16 Not Reportable 01/03/19 17:16 Not Reportable 01/03/19 17:16 Not Reportable 01/03/19 17:16 Not Reportable 01/03/19 17:16 Not Reportable 01/03/19 17:16 Few 01/03/19 17:16 Not Reportable 01/03/19 17:16 Few 01/03/19 17:16 Not Reportable 01/03/19 17:16 Not Reportable 01/03/19 17:16 Not Reportable 01/03/19 17:16 Not Reportable 01/03/19 17:16 Not Reportable 01/03/19 17:16 Not Reportable 01/03/19 17:16 Not Reportable 01/03/19 17:16 Acanthocytes (Spur) Not Reportable 01/03/19 17:16 Rouleaux Not Reportable 01/03/19 17:16 Not Reportable 01/03/19 17:16 Not Reportable 01/03/19 17:16 Not Reportable 01/03/19 17:16 Not Reportable 01/03/19 17:16 Hem Pathologist Commnt No 01/03/19 17:16 PT 18.0 Sec. (12.2-14.9) H 01/02/19 05:39 INR 1.39 (0.87-1.13) H 01/02/19 05:39 Sodium 131 mmol/L (137-145) L 01/24/19 04:30 Potassium 6.0 mmol/L (3.6-5.0) H D 01/24/19 04:30 Chloride 96.0 mmol/L (98-107) L 01/24/19 04:30 Carbon Dioxide 27 mmol/L (22-30) 01/24/19 04:30 14 mmol/L 01/24/19 04:30 BUN 33 mg/dL (9-20) H 01/24/19 04:30 2.4 mg/dL (0.8-1.5) H 01/24/19 04:30 Estimated GFR 33 ml/min 01/24/19 04:30 14 % 01/24/19 04:30 Glucose 116 mg/dL (75-100) H 01/24/19 04:30 POC Glucose 127 (70-105) H 01/24/19 06:28 < 4.2 % (4-6) 12/26/18 17:12 Lactic Acid 1.10 mmol/L (0.7-2.0) 12/27/18 07:04 Calcium 9.5 mg/dL (8.4-10.2) 01/24/19 04:30 Phosphorus 2.90 mg/dL (2.5-4.5) D 01/05/19 04:56 Magnesium 2.00 mg/dL (1.7-2.3) 01/05/19 04:56 0.20 mg/dL (0.1-1.2) 01/07/19 11:16 AST 12 units/L (5-40) 01/07/19 11:16 ALT < 5 units/L (7-56) L 01/07/19 11:16 92 units/L (35-129) 01/07/19 11:16 29 units/L (55-170) L 12/26/18 17:12 0.201 ng/mL (0.00-0.029) H* 01/21/19 08:05 5.7 g/dL (6.3-8.2) L 01/07/19 11:16 2.0 g/dL (3.9-5) L 01/07/19 11:16 0.5 % 01/07/19 11:16 Triglycerides 46 mg/dL (2-149) 01/21/19 04:23 Cholesterol 64 mg/dL (50-199) 01/21/19 04:23 34 mg/dL (50-130) L 01/21/19 04:23 27 mg/dL (40-59) L 01/21/19 04:23 2.37 % 01/21/19 04:23 PTH Intact 178.6 pg/mL (15-65) H 01/01/19 17:32 Random Vancomycin 14.3 ug/mL (0-40.0) 01/15/19 10:57 Hepatitis A IgM Ab Non-reactive (NonReactive) 01/22/19 10:34 Hep Bs Antigen Non-reactive (Negative) 01/22/19 10:34 Hep B Core IgM Ab Non-reactive (NonReactive) 01/22/19 10:34 Non-reactive (NonReactive) 01/22/19 10:34 Blood Type O POSITIVE 01/16/19 15:06 Antibody Screen Negative 01/16/19 15:06 Crossmatch See Detail 01/16/19 15:06 Active Medications - Current Medications Current Medications: Generic Name Dose Route Start Last Admin Trade Name Freq PRN Reason Stop Dose Admin Acetaminophen 650 mg 12/26/18 21:40 01/10/19 18:33 Tylenol PO 650 mg Q4H PRN Administration Pain MILD(1-3)/Fever >100.5/HILL Lipase/Protease/Amylase 1 each 01/16/19 17:[address] 10,500 Unit FEEDTUBE PRN PRN For Clogged Feeding Tube Aspirin 81 mg 12/27/18 10:00 01/23/19 09:59 Halfprin Ec PO 81 mg DAILY SANCHEZ Administration Diltiazem HCl 60 mg 01/22/19 10:00 01/23/19 21:14 Cardizem PO 60 mg BID SANCHEZ Administration Epoetin Solitario 20,000 unit 01/05/19 11:03 01/22/19 10:11 Procrit IV 20,000 unit UMA PRN Administration hemodialysis Famotidine 20 mg 12/27/18 10:00 01/23/19 10:00 Pepcid PO 20 mg DAILY SANCHEZ Administration Folic Acid 1 mg 12/27/18 10:00 01/23/19 10:00 Folvite PO 1 mg DAILY SANCHEZ Administration Gabapentin 100 mg 12/26/18 22:00 01/23/19 21:16 Neurontin PO 100 mg QHS SANCHEZ Administration Heparin Sodium (Porcine) 5,000 unit 01/23/19 22:00 01/23/19 21:19 Heparin SUB-Q 5,000 unit Q12HR SANCHEZ Administration Hydralazine HCl 100 mg 12/26/18 22:00 01/24/19 06:18 Apresoline PO 100 mg Q8HR SANHCEZ Administration Meropenem 1,000 mg/ Sodium 100 mls @ 100 mls/hr 01/05/19 11:00 01/23/19 09:58 Chloride IV 02/16/19 10:59 100 mls/hr Q24HR SANCHEZ Administration Vancomycin HCl 1 gm in 250 mls @ 167.007 mls/hr 01/06/19 20:00 01/22/19 21:46 Vancomycin/Ns 1 Gm/250 Ml IV 02/17/19 21:30 167.007 mls/hr TuThSa SANCHEZ Administration Dextrose 1,000 mls @ 45 mls/hr 01/14/19 13:00 01/14/19 12:45 D5w IV 45 mls/hr DIRECT SANCHEZ Administration Sodium Chloride 100 mls @ 999 mls/hr 01/19/19 09:29 Nacl 0.9% IV UMA PRN Hypotension Insulin Human Regular 0 units 01/14/19 00:00 01/24/19 06:21 Humulin R SUB-Q Not Given Q6HR [facility] Protocol Metoprolol Tartrate 100 mg 12/31/18 22:00 01/23/19 21:14 Lopressor PO 100 mg BID SANCHEZ Administration Morphine Sulfate 2 mg 01/21/19 04:08 01/21/19 04:22 Morphine IV 2 mg Q4H PRN Administration Pain, Moderate (4-6) Nitroglycerin 0.4 mg 01/21/19 04:05 01/21/19 04:15 Nitrostat SL 0.4 mg .Q5MIN PRN Administration Chest Pain Ondansetron HCl 4 mg 12/26/18 21:40 01/10/19 12:23 Zofran IV 4 mg Q8H PRN Administration Nausea And Vomiting Oxycodone/Acetaminophen 1 tab 01/05/19 08:30 01/24/19 06:44 Percocet 5/325 PO 1 tab Q6H PRN Administration Pain, Moderate (4-6) Risperidone 0.5 mg 12/26/18 22:00 01/23/19 21:12 Risperdal PO 0.5 mg QHS SANCHEZ Administration Risperidone 1 mg 12/27/18 10:00 01/23/19 10:00 Risperdal PO 1 mg QAM SANCHEZ Administration Sertraline HCl 100 mg 12/27/18 10:00 01/23/19 09:59 Zoloft PO 100 mg QDAY SANCHEZ Administration Simple Syrup 15 ml 01/16/19 17:11 Simple Syrup FEEDTUBE PRN PRN Hypoglycemia Simple Syrup 30 ml 01/16/19 17:11 Simple Syrup FEEDTUBE PRN PRN Hypoglycemia Sodium Bicarbonate 325 mg 01/16/19 17:11 Sodium Bicarbonate FEEDTUBE PRN PRN For Clogged Feeding Tube Sodium Chloride 10 ml 12/26/18 22:00 01/23/19 21:13 Sodium Chloride Flush Syringe 10 Ml IV 10 ml BID SANCHEZ Administration Sodium Chloride 10 ml 12/26/18 21:40 01/16/19 21:00 Sodium Chloride Flush Syringe 10 Ml IV 10 ml PRN PRN Administration LINE FLUSH Sodium Hypochlorite 1 applic 01/19/19 10:00 01/23/19 10:02 Dakin's Half Strength TP 1 applicatio QDAY SANCHEZ Administration Nutrition/Malnutrition Assess - Dietary Evaluation Nutrition/Malnutrition Findings: Nutrition Notes Start: 12/27/18 17:15 Freq: Status: Active Protocol: Document 01/23/19 17:59 RM (Rec: 01/23/19 18:13 RM [id number]) Nutrition Notes Initial or Follow up Reassessment Current Diagnosis CKD (stage V CKD),Diabetes, Sepsis,Hypertension Other Pertinent Diagnosis ESRD on HD, Hx CVA,S/P PEG, Sacral wound, FTT, acute encephalopathy Current Diet Glucerna 1.2 at 65 ml/hr Labs/Tests K 5.6 (01/22/19) K 4.9 (01/23/19) Pertinent Medications Reviewed Height 5 ft 7 in Weight 85.1 kg Kermit Body Weight (kg) 67.27 BMI 29.3 Subjective/Other Information Observed Glucerna 1.2 infusing at goal rate. Percent of energy/protein needs met: 97%/100% Burn Absent Trauma Absent #2 Nutrition Diagnosis Increased nutrient needs ( specify in comment below) Diagnosis Progress(for reassessment Continues documentation) #1 Nutrition Diagnosis Inadequate oral intake Diagnosis Progress(for reassessment Continues documentation) Is patient on ventilator? No Is Patient Ambulatory and/or Out of Bed No REE-([facility]-confined to bed) 1924.668 Kcal/Kg value to use for calculation 17 Approximate Energy Requirements Using 1447 kcal/Kg Calculation Used for Recommendations [facility][1] Additional Notes Pro needs 1.2-1.4g/k- 118g/day Fluid needs 1-1.5L/day Nutrition Intervention Nutrition Support: Nepro at 40 ml/hr. Water flush of 150 mls q 4 hrs . Kcal 1,728 Protein (gm) 78 Fluid (mL) 698 Goal #1 Meet at least 75% of calorie and protein needs via TF Goal #2 Stable K lab Anticipated Discharge Needs: Nepro Follow-Up By: 01/25/19 Additional Comments Follow for TF tolerance, K lab
[2019-01-24] MEDS: PROCRIT IV PRN (12:49)
[2019-01-24] MEDS: VANCOMYCIN/NS 1 GM/250 ML 1 GM/250 ML BAG IV SCH (20:30)
[2019-01-24] MEDS: NEURONTIN PO SCH (22:36)
[2019-01-25] MEDS: HumuLIN R SUB-Q SCH ×4 (01:39→18:46)
[2019-01-25] MEDS: MORPHINE IV PRN (04:58)
[2019-01-25] MEDS: APRESOLINE PO SCH ×3 (05:09→21:26)
[2019-01-25 05:27] LABS: Basophils # (Auto) 0.1 K/mm3 (0.0-0.1); Basophils % (Auto) 1.9 % (0.0-1.8); Eosinophils # (Auto) 0.5 K/mm3 (0.0-0.4); Eosinophils % (Auto) 8.2 % (0.0-4.3); Hematocrit 28.1 % (35.5-45.6); Hemoglobin 9.1 gm/dl (11.8-15.2); Lymphocytes # (Auto) 0.8 K/mm3 (1.2-5.4); Lymphocytes % (Auto) 11.4 % (13.4-35.0); Mean Corpuscular HGB Conc 32 % (32-34); Mean Corpuscular Volume 89 fl (84-94); Monocytes # (Auto) 0.7 K/mm3 (0.0-0.8); Monocytes % (Auto) 11.2 % (0.0-7.3); Platelet Count 265 K/mm3 (140-440); Red Blood Count 3.14 M/mm3 (3.65-5.03)
[2019-01-25 05:51] LABS: Calcium 9.1 mg/dL (8.4-10.2)
[2019-01-25] MEDS ORDERED: DUONEB *Not for PRN Use IH ONE (08:22)
[2019-01-25] MEDS: DAKIN'S HALF STRENGTH TP SCH (09:02)
[2019-01-25] MEDS: ZOLOFT PO SCH (09:03)
[2019-01-25] MEDS: LOPRESSOR PO SCH ×2 (09:03→21:26)
[2019-01-25] MEDS: HALFPRIN EC PO SCH (09:03)
[2019-01-25] MEDS: MERREM 1,000 MG in NACL 0.9% 100 ML IV SCH (09:03)
[2019-01-25] MEDS: FOLVITE PO SCH (09:03)
[2019-01-25] MEDS: PEPCID PO SCH (09:04)
[2019-01-25] MEDS: RisperDAL PO SCH ×2 (09:04→21:02)
[2019-01-25] MEDS: CARDIZEM PO SCH ×2 (09:04→21:26)
[2019-01-25] MEDS: HEPARIN SUB-Q SCH ×2 (09:04→21:03)
[2019-01-25] MEDS: SODIUM CHLORIDE FLUSH SYRINGE 10 ML IV SCH ×2 (09:04→21:27)
--- NOTE | 2019-01-25 09:41 | Progress Note ---
Subjective Principal diagnosis: afib Interval history: Patient was seen today for follow-up, regarding multiple renal related issues Currently on dialysis Saturday Potassium was noted to be 6.0, yesterday and hence dialysis time was increased Interdisciplinary Notes were also reviewed from past 24 hours Vitals labs intake output medications: Reviewed Past medical history: Reviewed Allergies: Reviewed Social history: Reviewed Family history: Reviewed Physical examination Gen.: No acute distress HEENT: Mild pallor nor icterus no uremic order Neck: Supple without any mass or JVD Chest: Clear to auscultation anteriorly Heart: Regular rate and rhythm S1 and S2 heard Abdomen: Soft nontender no suprapubic fullness no masses no renal bruit Extremity: Edema , no peripheral cyanosis Skin: No petechial rashes dry skin Assessment and plan End-stage renal disease: Acne with hemodialysis treatment Saturday Postdialysis BUN was not done yesterday that was requested with the dialysis n urse Dialysis time was increased to 4 hours due to hyperkalemia Potassium appears to be normal today We will also like to do a post dialysis BUN to assess the adequacy of dialysis Hypertension volume: Continue to monitor and follow Anemia in end-stage renal disease currently on erythropoietin continue to monitor Secondary hyperparathyroidism: Periodically monitor phosphorus and PTH level From dialysis standpoint his hemoglobin is currently stable at 9.4 platelet count 262,000 Hyperkalemia potassium was around 6.0 yesterday We'll continue to follow and make recommendation from renal standpoint Objective - Vital Signs Vital signs: Vital Signs - 12hr 01/24/19 01/24/19 01/24/19 22:00 22:36 22:37 Temperature Pulse Rate 90 90 Pulse Rate [ 90 From Monitor] Respiratory 18 Rate Blood Pressure 127/75 127/75 O2 Sat by Pulse Oximetry 01/24/19 01/24/19 01/25/19 23:05 23:12 00:12 Temperature 98.3 F Pulse Rate 107 H Pulse Rate [ From Monitor] Respiratory 20 18 18 Rate Blood Pressure 131/78 O2 Sat by Pulse 96 Oximetry 01/25/19 01/25/19 01/25/19 04:58 04:59 05:28 Temperature 98.2 F Pulse Rate 75 Pulse Rate [ From Monitor] Respiratory 21 21 19 Rate Blood Pressure 123/66 O2 Sat by Pulse 98 Oximetry - Lab 01/25/19 05:05 01/25/19 05:05 Most recent lab results Calcium 9.1 mg/dL (8.4-10.2) 01/25/19 05:05 Phosphorus 2.90 mg/dL (2.5-4.5) D 01/05/19 04:56 Magnesium 2.00 mg/dL (1.7-2.3) 01/05/19 04:56 Medications & Allergies - Medications Allergies/Adverse Reactions: Allergies haloperidol [From Haldol] Adverse Reaction (Verified 03/13/18 12:10) Unknown haloperidol lactate [From Haldol] Adverse Reaction (Verified 03/13/18 12:10) Unknown Home Medications: Home Medications Medication Instructions Recorded Confirmed Last Taken Type risperiDONE [RisperDAL] 1 mg PO QAM 03/13/18 12/27/18 Unknown History Sertraline [Zoloft] 100 mg PO QDAY 08/26/18 12/27/18 Unknown History risperiDONE [RisperDAL] 0.5 mg PO HS 08/26/18 12/27/18 Unknown History Polyethylene Glycol 3350 [Miralax 17 gm PO QDAY #30 packet 11/05/18 12/27/18 Unknown Rx 3350] Aspirin EC 81 mg PO DAILY #30 11/19/18 12/27/18 Unknown Rx Docusate Sodium [Colace CAP] 100 mg PO BID #60 11/19/18 12/27/18 Unknown Rx Folic Acid [Folvite] 1 mg PO DAILY #30 tab 11/19/18 12/27/18 Unknown Rx Famotidine [Pepcid] 20 mg PO DAILY tablet 12/08/18 12/27/18 Unknown Rx Gabapentin [Neurontin] 100 mg PO QHS capsule 12/08/18 12/27/18 Unknown Rx Metoprolol [Lopressor TAB] 50 mg PO BID 30 Days tablet 12/08/18 12/27/18 Unknown Rx Sevelamer Carbonate [Renvela] 800 mg PO TIDWM tablet 12/08/18 12/27/18 Unknown Rx hydrALAZINE [Apresoline TAB] 100 mg PO Q8HR #120 tablet 12/08/18 12/27/18 Unknown Rx Acetaminophen [Acetaminophen TAB] 650 mg PO Q12H PRN 12/15/18 12/27/18 Unknown History Amino Acids/Protein Hydrolys 30 ml PO BID 12/15/18 12/27/18 Unknown History [Pro-Stat Sugar Free Liquid] Glucagon,Human Recombinant 1 mg IJ Q15MIN PRN 12/15/18 12/27/18 Unknown History [Glucagon Emergency Kit] Insulin Aspart [NovoLOG 100 See Protocol SQ QWEEK 12/15/18 12/27/18 Unknown History UNITS/ML VIAL] Epoetin Solitario 10,000 Unit [Procrit] 10,000 unit IV UMA PRN vial 12/18/18 12/27/18 Unknown Rx Lispro Insulin [HumaLOG] 0 unit SUB-Q ACHS units 12/18/18 12/27/18 Unknown Rx risperiDONE [RisperDAL] 0.5 mg PO QHS tablet 12/18/18 12/27/18 Unknown Rx Meropenem [Merrem] 1,000 mg IV Q24HR vial 01/16/19 Unknown Rx Active Medications: Generic Name Dose Route Start Last Admin Trade Name Freq PRN Reason Stop Dose Admin Acetaminophen 650 mg 12/26/18 21:40 01/10/19 18:33 Tylenol PO 650 mg Q4H PRN Administration Pain MILD(1-3)/Fever >100.5/HILL Lipase/Protease/Amylase 1 each 01/16/19 17:11 Pancreaze 10,500 Unit FEEDTUBE PRN PRN For Clogged Feeding Tube Aspirin 81 mg 12/27/18 10:00 01/25/19 09:03 Halfprin Ec PO 81 mg DAILY SANCHEZ Administration Diltiazem HCl 60 mg 01/22/19 10:00 01/25/19 09:04 Cardizem PO 60 mg BID SANCHEZ Administration Epoetin Solitario 20,000 unit 01/05/19 11:03 01/24/19 12:49 Procrit IV 20,000 unit UMA PRN Administration hemodialysis Famotidine 20 mg 12/27/18 10:00 01/25/19 09:04 Pepcid PO 20 mg DAILY SANCHEZ Administration Folic Acid 1 mg 12/27/18 10:00 01/25/19 09:03 Folvite PO 1 mg DAILY SANCHEZ Administration Gabapentin 100 mg 12/26/18 22:00 01/24/19 22:36 Neurontin PO 100 mg QHS SANCHEZ Administration Heparin Sodium (Porcine) 5,000 unit 01/23/19 22:00 01/25/19 09:04 Heparin SUB-Q 5,000 unit Q12HR SANCHEZ Administration Hydralazine HCl 100 mg 12/26/18 22:00 01/25/19 05:09 Apresoline PO 100 mg Q8HR SANCHEZ Administration Meropenem 1,000 mg/ Sodium 100 mls @ 100 mls/hr 01/05/19 11:00 01/25/19 09:03 Chloride IV 02/16/19 10:59 100 mls/hr Q24HR SANCHEZ Administration Vancomycin HCl 1 gm in 250 mls @ 167.007 mls/hr 01/06/19 20:00 01/24/19 20:30 Vancomycin/Ns 1 Gm/250 Ml IV 02/17/19 21:30 167.007 mls/hr TuThSa SANCHEZ Administration Dextrose 1,000 mls @ 45 mls/hr 01/14/19 13:00 01/14/19 12:45 D5w IV 45 mls/hr DIRECT SANCHEZ Administration Sodium Chloride 100 mls @ 999 mls/hr 01/19/19 09:29 Nacl 0.9% IV UMA PRN Hypotension Insulin Human Regular 0 units 01/14/19 00:00 01/25/19 06:00 Humulin R SUB-Q Not Given Q6HR [facility] Protocol Metoprolol Tartrate 100 mg 12/31/18 22:00 01/25/19 09:03 Lopressor PO 100 mg BID SANCHEZ Administration Morphine Sulfate 2 mg 01/21/19 04:08 01/25/19 04:58 Morphine IV 2 mg Q4H PRN Administration Pain, Moderate (4-6) Nitroglycerin 0.4 mg 01/21/19 04:05 01/21/19 04:15 Nitrostat SL 0.4 mg .Q5MIN PRN Administration Chest Pain Ondansetron HCl 4 mg 12/26/18 21:40 01/10/19 12:23 Zofran IV 4 mg Q8H PRN Administration Nausea And Vomiting Oxycodone/Acetaminophen 1 tab 01/05/19 08:30 01/24/19 23:12 Percocet 5/325 PO 1 tab Q6H PRN Administration Pain, Moderate (4-6) Risperidone 0.5 mg 12/26/18 22:00 01/24/19 22:36 Risperdal PO 0.5 mg QHS SANCHEZ Administration Risperidone 1 mg 12/27/18 10:00 01/25/19 09:04 Risperdal PO 1 mg QAM SANCHEZ Administration Sertraline HCl 100 mg 12/27/18 10:00 01/25/19 09:03 Zoloft PO 100 mg QDAY SANCHEZ Administration Simple Syrup 15 ml 01/16/19 17:11 Simple Syrup FEEDTUBE PRN PRN Hypoglycemia Simple Syrup 30 ml 01/16/19 17:11 Simple Syrup FEEDTUBE PRN PRN Hypoglycemia Sodium Bicarbonate 325 mg 01/16/19 17:11 Sodium Bicarbonate FEEDTUBE PRN PRN For Clogged Feeding Tube Sodium Chloride 10 ml 12/26/18 22:00 01/25/19 09:04 Sodium Chloride Flush Syringe 10 Ml IV 10 ml BID SANCHEZ Administration Sodium Chloride 10 ml 12/26/18 21:40 01/16/19 21:00 Sodium Chloride Flush Syringe 10 Ml IV 10 ml PRN PRN Administration LINE FLUSH Sodium Hypochlorite 1 applic 01/19/19 10:00 01/25/19 09:02 Dakin's Half Strength TP 10 applicatio QDAY SANCHEZ Administration
[2019-01-25] MEDS ORDERED: PROTONIX PO SCH (10:00)
--- NOTE | 2019-01-25 12:16 | Progress Note ---
Assessment and Plan Assessment and plan: Patient is a 63-year-old -[place] man from [facility] with a plethora of co-morbidities including blindness, CVA, CHF, PPM/ICD, loop recorder since 2013 that is MRI compatible, IDDM type 2, sepsis left foot ulcer, afib, ESRD with complications on HD TTS, hypertension, AOCD and GERD who presented to [facility] with altered sensorium and decreased responsiveness. Decreased responsive and not eating at all for 2 days. Patient has failure to thrive, altered mentation and weight loss of 20 pounds since 12/08/2018. Severe Sepsis due to Necrotizing Unstagable sacral decubitus ulcer with ostemomylitis s/p OR on 01/01/2019 for open excisional debridement of necrotic and infected sacral wound noted a large amount of necrotic tissue debrided and two abscess cavities at the caudad portion of the wound with a copious amount of purulent drainage which was drained. Wound cultures 01/02/2019 ESBL Kleb, MDR Ecoli and E raffinosus resistant to penicillin: On meropenam and vanc per ID. Consult Vascular surgery for central line placement, planned for diverting colostomy, family has agreed, Cardiology re-evaluated for surgery, input noted, high CV risk. d/w Dr. Villela, Vascular surgery placed central line placement for Merem, 01/08/19, now ongoing.Further debridement done 01/14/19 pateint noted to have lost over 150cc Of blood during this procedure. Acute on chronic Anemia of AOCD: Continue epoetin, total of 8 units PRBC, fo llow cbc- no occult GI bleed noted. GI input noted, No retroperitoneal bleed noted. Although 150cc Of blood loss documented during debridement No further bleeding from sacral wound noted Dakins moistened kerlex packing started Pt is s/p x1 DDVAP Chest pain, now resolved Acute metabolic encephalopathy due to the above Acute systolic exacerbation of CHF (congestive heart failure): treat via Ultrafiltration during HD Afib with RVR: rate control only and optimize meds per Cardiology ESRD needing dialysis: Nephology is managing, Continue hemo dialysis Insulin dependent diabetes mellitus, A1c is 4.2: insulin was dc Severe malnutrition with FTT: 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, cont oral diet, merchandiser seasonal input appreciated, PEG tube placed on 01/02/19 Hypertension: Continue antihypertensives h/o Peripheral neuropathy: Continue gabapentin Elevated troponin, Secondary to end-stage renal disease, chf and afib, Cardiology input appreciated DVT prophylaxis On heparin and GI prophylaxis Hyperkalemia For dialysis today Poor prognosis discussed with family member Mr Jennifer Mims. Per discussion with Surgery and as documented by them "Very poor prognosis for wound healing. I do not feel wound will ever heal due to extensive nature, poor nutrition, bedbound status, among other comorbidities. Recommend hospice." Family not accepting at this time. Ok to dc to NH when bed available. Would hold off on vac and continue dakins dressings to wound. May follow up in wound care center after dc. Discussed with case management. Still Awaiting placement History Interval history: c/o chest pain, night of 01/20 now resolved No new complaints Hospitalist Physical - Physical exam Narrative exam: Gen: Not in acute distress, lying in bed,obese,ill looking HEENT: Normocephalic, atraumatic Neck: supple, no JVD Heart: S1 and S2 reg, no murmurs, rubs or gallop Lungs: Clear, no crackles, no wheeze Abd: soft, non tender, non distended, normal BS, PEg tube Ext: Contracted, no clubbing, no cyanosis, Sacrum: sacral decub ulcer Neuro: Lethargic, - Constitutional Vitals: Temp Pulse Resp BP Pulse Ox 98.2 F 75 19 123/66 98 01/25/19 04:59 01/25/19 04:59 01/25/19 05:28 01/25/19 04:59 01/25/19 04:59 General appearance: Present: no acute distress Results - Labs CBC & Chem 7: 01/25/19 05:05 01/25/19 05:05 Labs: Laboratory Last Values WBC 6.7 K/mm3 (4.5-11.0) 01/25/19 05:05 RBC 3.14 M/mm3 (3.65-5.03) L 01/25/19 05:05 Hgb 9.1 gm/dl (11.8-15.2) L 01/25/19 05:05 Hct 28.1 % (35.5-45.6) L 01/25/19 05:05 MCV 89 fl (84-94) 01/25/19 05:05 MCH 29 pg (28-32) 01/25/19 05:05 MCHC 32 % (32-34) 01/25/19 05:05 RDW 18.0 % (13.2-15.2) H 01/25/19 05:05 Plt Count 265 K/mm3 (140-440) 01/25/19 05:05 Lymph % (Auto) 11.4 % (13.4-35.0) L 01/25/19 05:05 [place] % (Auto) 11.2 % (0.0-7.3) H 01/25/19 05:05 Eos % (Auto) 8.2 % (0.0-4.3) H 01/25/19 05:05 Baso % (Auto) 1.9 % (0.0-1.8) H 01/25/19 05:05 Lymph # 0.8 K/mm3 (1.2-5.4) L 01/25/19 05:05 [place] # 0.7 K/mm3 (0.0-0.8) 01/25/19 05:05 Eos # 0.5 K/mm3 (0.0-0.4) H 01/25/19 05:05 Baso # 0.1 K/mm3 (0.0-0.1) 01/25/19 05:05 Add Manual Diff Complete 01/03/19 17:16 Total Counted 100 01/03/19 17:16 Seg Neutrophils % 67.3 % (40.0-70.0) 01/25/19 05:05 Seg Neuts % (Manual) 96.0 % (40.0-70.0) H 01/03/19 17:16 0 % 01/03/19 17:16 2.0 % (13.4-35.0) L 01/03/19 17:16 Reactive Lymphs % (Man) 0 % 01/03/19 17:16 2.0 % (0.0-7.3) 01/03/19 17:16 0 % (0.0-4.3) 01/03/19 17:16 0 % (0.0-1.8) 01/03/19 17:16 0 % 01/03/19 17:16 0 % 01/03/19 17:16 0 % 01/03/19 17:16 0 % 01/03/19 17:16 Nucleated RBC % Not Reportable 01/03/19 17:16 Seg Neutrophils # 4.5 K/mm3 (1.8-7.7) 01/25/19 05:05 Seg Neutrophils # Man 10.8 K/mm3 (1.8-7.7) H 01/03/19 17:16 Band Neutrophils # 0.0 K/mm3 01/03/19 17:16 0.2 K/mm3 (1.2-5.4) L 01/03/19 17:16 Abs React Lymphs (Man) 0.0 K/mm3 01/03/19 17:16 0.2 K/mm3 (0.0-0.8) 01/03/19 17:16 0.0 K/mm3 (0.0-0.4) 01/03/19 17:16 0.0 K/mm3 (0.0-0.1) 01/03/19 17:16 0.0 K/mm3 01/03/19 17:16 0.0 K/mm3 01/03/19 17:16 0.0 K/mm3 01/03/19 17:16 Blast Cells # 0.0 K/mm3 01/03/19 17:16 WBC Morphology Not Reportable 01/03/19 17:16 Hypersegmented Neuts Not Reportable 01/03/19 17:16 Hyposegmented Neuts Not Reportable 01/03/19 17:16 Hypogranular Neuts Not Reportable 01/03/19 17:16 Not Reportable 01/03/19 17:16 Not Reportable 01/03/19 17:16 Not Reportable 01/03/19 17:16 Not Reportable 01/03/19 17:16 Not Reportable 01/03/19 17:16 Not Reportable 01/03/19 17:16 Consistent w auto 01/03/19 17:16 Not Reportable 01/03/19 17:16 Plt Clumps, EDTA Not Reportable 01/03/19 17:16 Not Reportable 01/03/19 17:16 Not Reportable 01/03/19 17:16 Not Reportable 01/03/19 17:16 Plt Morphology Comment Not Reportable 01/03/19 17:16 RBC Morphology Not Reportable 01/03/19 17:16 Dimorphic RBCs Not Reportable 01/03/19 17:16 Not Reportable 01/03/19 17:16 1+ 01/03/19 17:16 Few 01/03/19 17:16 1+ 01/03/19 17:16 Not Reportable 01/03/19 17:16 Not Reportable 01/03/19 17:16 Not Reportable 01/03/19 17:16 Not Reportable 01/03/19 17:16 Not Reportable 01/03/19 17:16 Few 01/03/19 17:16 Not Reportable 01/03/19 17:16 Few 01/03/19 17:16 Not Reportable 01/03/19 17:16 Not Reportable 01/03/19 17:16 Not Reportable 01/03/19 17:16 Not Reportable 01/03/19 17:16 Not Reportable 01/03/19 17:16 Not Reportable 01/03/19 17:16 Not Reportable 01/03/19 17:16 Acanthocytes (Spur) Not Reportable 01/03/19 17:16 Rouleaux Not Reportable 01/03/19 17:16 Not Reportable 01/03/19 17:16 Not Reportable 01/03/19 17:16 Not Reportable 01/03/19 17:16 Not Reportable 01/03/19 17:16 Hem Pathologist Commnt No 01/03/19 17:16 PT 18.0 Sec. (12.2-14.9) H 01/02/19 05:39 INR 1.39 (0.87-1.13) H 01/02/19 05:39 Sodium 135 mmol/L (137-145) L 01/25/19 05:05 Potassium 4.9 mmol/L (3.6-5.0) 01/25/19 05:05 Chloride 96.9 mmol/L (98-107) L 01/25/19 05:05 Carbon Dioxide 30 mmol/L (22-30) 01/25/19 05:05 13 mmol/L 01/25/19 05:05 BUN 23 mg/dL (9-20) H 01/25/19 05:05 1.9 mg/dL (0.8-1.5) H 01/25/19 05:05 Estimated GFR 43 ml/min 01/25/19 05:05 12 % 01/25/19 05:05 Glucose 136 mg/dL (75-100) H 01/25/19 05:05 POC Glucose 145 (70-105) H 01/25/19 11:44 < 4.2 % (4-6) 12/26/18 17:12 Lactic Acid 1.10 mmol/L (0.7-2.0) 12/27/18 07:04 Calcium 9.1 mg/dL (8.4-10.2) 01/25/19 05:05 Phosphorus 2.90 mg/dL (2.5-4.5) D 01/05/19 04:56 Magnesium 2.00 mg/dL (1.7-2.3) 01/05/19 04:56 0.20 mg/dL (0.1-1.2) 01/07/19 11:16 AST 12 units/L (5-40) 01/07/19 11:16 ALT < 5 units/L (7-56) L 01/07/19 11:16 92 units/L (35-129) 01/07/19 11:16 29 units/L (55-170) L 12/26/18 17:12 0.201 ng/mL (0.00-0.029) H* 01/21/19 08:05 5.7 g/dL (6.3-8.2) L 01/07/19 11:16 2.0 g/dL (3.9-5) L 01/07/19 11:16 0.5 % 01/07/19 11:16 Triglycerides 46 mg/dL (2-149) 01/21/19 04:23 Cholesterol 64 mg/dL (50-199) 01/21/19 04:23 34 mg/dL (50-130) L 01/21/19 04:23 27 mg/dL (40-59) L 01/21/19 04:23 2.37 % 01/21/19 04:23 PTH Intact 178.6 pg/mL (15-65) H 01/01/19 17:32 Random Vancomycin 19.4 ug/mL (0-40.0) 01/24/19 10:59 Hepatitis A IgM Ab Non-reactive (NonReactive) 01/22/19 10:34 Hep Bs Antigen Non-reactive (Negative) 01/22/19 10:34 Hep B Core IgM Ab Non-reactive (NonReactive) 01/22/19 10:34 Non-reactive (NonReactive) 01/22/19 10:34 Blood Type O POSITIVE 01/16/19 15:06 Antibody Screen Negative 01/16/19 15:06 Crossmatch See Detail 01/16/19 15:06 Active Medications - Current Medications Current Medications: Generic Name Dose Route Start Last Admin Trade Name Freq PRN Reason Stop Dose Admin Acetaminophen 650 mg 12/26/18 21:40 01/10/19 18:33 Tylenol PO 650 mg Q4H PRN Administration Pain MILD(1-3)/Fever >100.5/HILL Lipase/Protease/Amylase 1 each 01/16/19 17:[address] 10,500 Unit FEEDTUBE PRN PRN For Clogged Feeding Tube Aspirin 81 mg 12/27/18 10:00 01/25/19 09:03 Halfprin Ec PO 81 mg DAILY SANCHEZ Administration Diltiazem HCl 60 mg 01/22/19 10:00 01/25/19 09:04 Cardizem PO 60 mg BID SANCHEZ Administration Epoetin Solitario 20,000 unit 01/05/19 11:03 01/24/19 12:49 Procrit IV 20,000 unit UMA PRN Administration hemodialysis Famotidine 20 mg 12/27/18 10:00 01/25/19 09:04 Pepcid PO 20 mg DAILY SANCHEZ Administration Folic Acid 1 mg 12/27/18 10:00 01/25/19 09:03 Folvite PO 1 mg DAILY SANCHEZ Administration Gabapentin 100 mg 12/26/18 22:00 01/24/19 22:36 Neurontin PO 100 mg QHS SANCHEZ Administration Heparin Sodium (Porcine) 5,000 unit 01/23/19 22:00 01/25/19 09:04 Heparin SUB-Q 5,000 unit Q12HR SANCHEZ Administration Hydralazine HCl 100 mg 12/26/18 22:00 01/25/19 05:09 Apresoline PO 100 mg Q8HR SANCHEZ Administration Meropenem 1,000 mg/ Sodium 100 mls @ 100 mls/hr 01/05/19 11:00 01/25/19 09:03 Chloride IV 02/16/19 10:59 100 mls/hr Q24HR SANCHEZ Administration Vancomycin HCl 1 gm in 250 mls @ 167.007 mls/hr 01/06/19 20:00 01/24/19 20:30 Vancomycin/Ns 1 Gm/250 Ml IV 02/17/19 21:30 167.007 mls/hr TuThSa SANCHEZ Administration Dextrose 1,000 mls @ 45 mls/hr 01/14/19 13:00 01/14/19 12:45 D5w IV 45 mls/hr DIRECT SANCHEZ Administration Sodium Chloride 100 mls @ 999 mls/hr 01/19/19 09:29 Nacl 0.9% IV UMA PRN Hypotension Insulin Human Regular 0 units 01/14/19 00:00 01/25/19 06:00 Humulin R SUB-Q Not Given Q6HR [facility] Protocol Metoprolol Tartrate 100 mg 12/31/18 22:00 01/25/19 09:03 Lopressor PO 100 mg BID SANCHEZ Administration Morphine Sulfate 2 mg 01/21/19 04:08 01/25/19 04:58 Morphine IV 2 mg Q4H PRN Administration Pain, Moderate (4-6) Nitroglycerin 0.4 mg 01/21/19 04:05 01/21/19 04:15 Nitrostat SL 0.4 mg .Q5MIN PRN Administration Chest Pain Ondansetron HCl 4 mg 12/26/18 21:40 01/10/19 12:23 Zofran IV 4 mg Q8H PRN Administration Nausea And Vomiting Oxycodone/Acetaminophen 1 tab 01/05/19 08:30 01/24/19 23:12 Percocet 5/325 PO 1 tab Q6H PRN Administration Pain, Moderate (4-6) Risperidone 0.5 mg 12/26/18 22:00 01/24/19 22:36 Risperdal PO 0.5 mg QHS SANCHEZ Administration Risperidone 1 mg 12/27/18 10:00 01/25/19 09:04 Risperdal PO 1 mg QAM SANCHEZ Administration Sertraline HCl 100 mg 12/27/18 10:00 01/25/19 09:03 Zoloft PO 100 mg QDAY SANCHEZ Administration Simple Syrup 15 ml 01/16/19 17:11 Simple Syrup FEEDTUBE PRN PRN Hypoglycemia Simple Syrup 30 ml 01/16/19 17:11 Simple Syrup FEEDTUBE PRN PRN Hypoglycemia Sodium Bicarbonate 325 mg 01/16/19 17:11 Sodium Bicarbonate FEEDTUBE PRN PRN For Clogged Feeding Tube Sodium Chloride 10 ml 12/26/18 22:00 01/25/19 09:04 Sodium Chloride Flush Syringe 10 Ml IV 10 ml BID SANCHEZ Administration Sodium Chloride 10 ml 12/26/18 21:40 01/16/19 21:00 Sodium Chloride Flush Syringe 10 Ml IV 10 ml PRN PRN Administration LINE FLUSH Sodium Hypochlorite 1 applic 01/19/19 10:00 01/25/19 09:02 Dakin's Half Strength TP 10 applicatio QDAY SANCHEZ Administration Nutrition/Malnutrition Assess - Dietary Evaluation Nutrition/Malnutrition Findings: Nutrition Notes Start: 12/27/18 17:15 Freq: Status: Active Protocol: Document 01/23/19 17:59 RM (Rec: 01/23/19 18:13 RM [id number]) Nutrition Notes Initial or Follow up Reassessment Current Diagnosis CKD (stage V CKD),Diabetes, Sepsis,Hypertension Other Pertinent Diagnosis ESRD on HD, Hx CVA,S/P PEG, Sacral wound, FTT, acute encephalopathy Current Diet Glucerna 1.2 at 65 ml/hr Labs/Tests K 5.6 (01/22/19) K 4.9 (01/23/19) Pertinent Medications Reviewed Height 5 ft 7 in Weight 85.1 kg [place] Body Weight (kg) 67.27 BMI 29.3 Subjective/Other Information Observed Glucerna 1.2 infusing at goal rate. Percent of energy/protein needs met: 97%/100% Burn Absent Trauma Absent #2 Nutrition Diagnosis Increased nutrient needs ( specify in comment below) Diagnosis Progress(for reassessment Continues documentation) #1 Nutrition Diagnosis Inadequate oral intake Diagnosis Progress(for reassessment Continues documentation) Is patient on ventilator? No Is Patient Ambulatory and/or Out of Bed No REE-([facility]-confined to bed) 1924.668 Kcal/Kg value to use for calculation 17 Approximate Energy Requirements Using 1447 kcal/Kg Calculation Used for Recommendations [facility] Additional Notes Pro needs 1.2-1.4g/k- 118g/day Fluid needs 1-1.5L/day Nutrition Intervention Nutrition Support: Nepro at 40 ml/hr. Water flush of 150 mls q 4 hrs . Kcal 1,728 Protein (gm) 78 Fluid (mL) 698 Goal #1 Meet at least 75% of calorie and protein needs via TF Goal #2 Stable K lab Anticipated Discharge Needs: Nepro Follow-Up By: 01/25/19 Additional Comments Follow for TF tolerance, K lab
[2019-01-25] MEDS: NEURONTIN PO SCH (21:03)
[2019-01-26] MEDS: HumuLIN R SUB-Q SCH ×4 (00:01→17:46)
[2019-01-26] MEDS: APRESOLINE PO SCH ×3 (05:45→22:17)
[2019-01-26] MEDS: PERCOCET 5/325 PO PRN ×2 (05:54→22:16)
[2019-01-26] MEDS: DAKIN'S HALF STRENGTH TP SCH (10:00)
[2019-01-26] MEDS: SODIUM CHLORIDE FLUSH SYRINGE 10 ML IV SCH ×2 (10:00→22:18)
--- NOTE | 2019-01-26 11:27 | Progress Note ---
Assessment and Plan Impression * End-stage renal disease on maintenance hemodialysis * Altered mental status * s/p diverting colostomy * Sacral decubitus * Hypokalemia * Failure to thrive * Hypophosphatemia * Malnutrition * Anemia secondary to ESRD * Hypomagnesemia Recommendations * Continue dialysis on TTS schedule for now * prn PRBCs * s/p PRBCs--2 units * Antibiotic therapy and local wound care as per primary team/surgery * Avoid nephrotoxins * Epogen with dialysis * Adjust diet and meds were ESRD state Subjective Date of service: 01/26/19 Principal diagnosis: afib Interval history: resting in bed Objective - Exam Narrative Exam: General appearance: chronically ill, frail EENT: PERRL, mucous membranes moist Neck: no JVD, no thyromegaly, no carotid bruit, supple, other (IJ PermCath in place) Respiratory: Present: Clear to Ascultation Cardiology: regular, normal heart rate, S1S2, no murmurs Gastrointestinal: normal, normoactive bowel sounds, other (PEG tube in place) - Vital Signs Vital signs: Vital Signs - 12hr 01/26/19 01/26/19 01/26/19 05:45 05:54 06:09 Temperature 97.8 F 98.9 F Pulse Rate 77 73 Respiratory 20 20 16 Rate Blood Pressure 119/67 117/63 O2 Sat by Pulse 97 98 Oximetry 01/26/19 06:54 Temperature Pulse Rate Respiratory 19 Rate Blood Pressure O2 Sat by Pulse Oximetry - Lab 01/25/19 05:05 01/25/19 05:05 Most recent lab results Calcium 9.1 mg/dL (8.4-10.2) 01/25/19 05:05 Phosphorus 2.90 mg/dL (2.5-4.5) D 01/05/19 04:56 Magnesium 2.00 mg/dL (1.7-2.3) 01/05/19 04:56 Medications & Allergies - Medications Allergies/Adverse Reactions: Allergies haloperidol [From Haldol] Adverse Reaction (Verified 03/13/18 12:10) Unknown haloperidol lactate [From Haldol] Adverse Reaction (Verified 03/13/18 12:10) Unknown Home Medications: Home Medications Medication Instructions Recorded Confirmed Last Taken Type risperiDONE [RisperDAL] 1 mg PO QAM 03/13/18 12/27/18 Unknown History Sertraline [Zoloft] 100 mg PO QDAY 08/26/18 12/27/18 Unknown History risperiDONE [RisperDAL] 0.5 mg PO HS 08/26/18 12/27/18 Unknown History Polyethylene Glycol 3350 [Miralax 17 gm PO QDAY #30 packet 11/05/18 12/27/18 Unknown Rx 3350] Aspirin EC 81 mg PO DAILY #30 11/19/18 12/27/18 Unknown Rx Docusate Sodium [Colace CAP] 100 mg PO BID #60 11/19/18 12/27/18 Unknown Rx Folic Acid [Folvite] 1 mg PO DAILY #30 tab 11/19/18 12/27/18 Unknown Rx Famotidine [Pepcid] 20 mg PO DAILY tablet 12/08/18 12/27/18 Unknown Rx Gabapentin [Neurontin] 100 mg PO QHS capsule 12/08/18 12/27/18 Unknown Rx Metoprolol [Lopressor TAB] 50 mg PO BID 30 Days tablet 12/08/18 12/27/18 Unknown Rx Sevelamer Carbonate [Renvela] 800 mg PO TIDWM tablet 12/08/18 12/27/18 Unknown Rx hydrALAZINE [Apresoline TAB] 100 mg PO Q8HR #120 tablet 12/08/18 12/27/18 Unknown Rx Acetaminophen [Acetaminophen TAB] 650 mg PO Q12H PRN 12/15/18 12/27/18 Unknown History Amino Acids/Protein Hydrolys 30 ml PO BID 12/15/18 12/27/18 Unknown History [Pro-Stat Sugar Free Liquid] Glucagon,Human Recombinant 1 mg IJ Q15MIN PRN 12/15/18 12/27/18 Unknown History [Glucagon Emergency Kit] Insulin Aspart [NovoLOG 100 See Protocol SQ QWEEK 12/15/18 12/27/18 Unknown History UNITS/ML VIAL] Epoetin Solitario 10,000 Unit [Procrit] 10,000 unit IV UMA PRN vial 12/18/18 12/27/18 Unknown Rx Lispro Insulin [HumaLOG] 0 unit SUB-Q ACHS units 12/18/18 12/27/18 Unknown Rx risperiDONE [RisperDAL] 0.5 mg PO QHS tablet 12/18/18 12/27/18 Unknown Rx Meropenem [Merrem] 1,000 mg IV Q24HR vial 01/16/19 Unknown Rx Active Medications: Generic Name Dose Route Start Last Admin Trade Name Freq PRN Reason Stop Dose Admin Acetaminophen 650 mg 12/26/18 21:40 01/10/19 18:33 Tylenol PO 650 mg Q4H PRN Administration Pain MILD(1-3)/Fever >100.5/HILL Lipase/Protease/Amylase 1 each 01/16/19 17:11 Pancrejewel Barrientos 10,500 Unit FEEDTUBE PRN PRN For Clogged Feeding Tube Aspirin 81 mg 12/27/18 10:00 01/25/19 09:03 Halfprin Ec PO 81 mg DAILY SANCEHZ Administration Diltiazem HCl 60 mg 01/22/19 10:00 01/25/19 21:26 Cardizem PO 60 mg BID SANCHEZ Administration Diphenhydramine HCl 25 mg 01/26/19 05:54 Benadryl PO Q6H PRN Itching Epoetin Solitario 20,000 unit 01/05/19 11:03 01/24/19 12:49 Procrit IV 20,000 unit UMA PRN Administration hemodialysis Famotidine 20 mg 12/27/18 10:00 01/25/19 09:04 Pepcid PO 20 mg DAILY SANCHEZ Administration Folic Acid 1 mg 12/27/18 10:00 01/25/19 09:03 Folvite PO 1 mg DAILY SANCHEZ Administration Gabapentin 100 mg 12/26/18 22:00 01/25/19 21:03 Neurontin PO 100 mg QHS SANCHEZ Administration Heparin Sodium (Porcine) 5,000 unit 01/23/19 22:00 01/25/19 21:03 Heparin SUB-Q 5,000 unit Q12HR SANCHEZ Administration Hydralazine HCl 100 mg 12/26/18 22:00 01/26/19 05:45 Apresoline PO 100 mg Q8HR SANCHEZ Administration Meropenem 1,000 mg/ Sodium 100 mls @ 100 mls/hr 01/05/19 11:00 01/25/19 09:03 Chloride IV 02/16/19 10:59 100 mls/hr Q24HR SANCHEZ Administration Vancomycin HCl 1 gm in 250 mls @ 167.007 mls/hr 01/06/19 20:00 01/24/19 20:30 Vancomycin/Ns 1 Gm/250 Ml IV 02/17/19 21:30 167.007 mls/hr TuThSa SANCHEZ Administration Sodium Chloride 100 mls @ 999 mls/hr 01/19/19 09:29 Nacl 0.9% IV UMA PRN Hypotension Insulin Human Regular 0 units 01/14/19 00:00 01/26/19 06:00 Humulin R SUB-Q Not Given Q6HR [facility] Protocol Metoprolol Tartrate 100 mg 12/31/18 22:00 01/25/19 21:26 Lopressor PO 100 mg BID SANCHEZ Administration Morphine Sulfate 2 mg 01/21/19 04:08 01/25/19 04:58 Morphine IV 2 mg Q4H PRN Administration Pain, Moderate (4-6) Nitroglycerin 0.4 mg 01/21/19 04:05 01/21/19 04:15 Nitrostat SL 0.4 mg .Q5MIN PRN Administration Chest Pain Ondansetron HCl 4 mg 12/26/18 21:40 01/10/19 12:23 Zofran IV 4 mg Q8H PRN Administration Nausea And Vomiting Oxycodone/Acetaminophen 1 tab 01/05/19 08:30 01/26/19 05:54 Percocet 5/325 PO 1 tab Q6H PRN Administration Pain, Moderate (4-6) Risperidone 0.5 mg 12/26/18 22:00 01/25/19 21:02 Risperdal PO 0.5 mg QHS SANCHEZ Administration Risperidone 1 mg 12/27/18 10:00 01/25/19 09:04 Risperdal PO 1 mg QAM SANCHEZ Administration Sertraline HCl 100 mg 12/27/18 10:00 01/25/19 09:03 Zoloft PO 100 mg QDAY SANCHEZ Administration Simple Syrup 15 ml 01/16/19 17:11 Simple Syrup FEEDTUBE PRN PRN Hypoglycemia Simple Syrup 30 ml 01/16/19 17:11 Simple Syrup FEEDTUBE PRN PRN Hypoglycemia Sodium Bicarbonate 325 mg 01/16/19 17:11 Sodium Bicarbonate FEEDTUBE PRN PRN For Clogged Feeding Tube Sodium Chloride 10 ml 12/26/18 22:00 01/25/19 21:27 Sodium Chloride Flush Syringe 10 Ml IV 10 ml BID SANCHEZ Administration Sodium Chloride 10 ml 12/26/18 21:40 01/16/19 21:00 Sodium Chloride Flush Syringe 10 Ml IV 10 ml PRN PRN Administration LINE FLUSH Sodium Hypochlorite 1 applic 01/19/19 10:00 01/25/19 09:02 Dakin's Half Strength TP 10 applicatio QDAY SANCHEZ Administration
[2019-01-26] MEDS: MERREM 1,000 MG in NACL 0.9% 100 ML IV SCH (12:26)
[2019-01-26] MEDS: CARDIZEM PO SCH ×2 (12:27→22:17)
[2019-01-26] MEDS: HALFPRIN EC PO SCH (12:27)
[2019-01-26] MEDS: FOLVITE PO SCH (12:27)
[2019-01-26] MEDS: RisperDAL PO SCH ×2 (12:27→22:12)
[2019-01-26] MEDS: ZOLOFT PO SCH (12:27)
[2019-01-26] MEDS: HEPARIN SUB-Q SCH ×2 (12:28→22:12)
[2019-01-26] MEDS: LOPRESSOR PO SCH ×2 (12:28→22:17)
[2019-01-26] MEDS: PEPCID PO SCH (12:28)
--- NOTE | 2019-01-26 12:40 | Progress Note ---
Assessment and Plan Assessment and plan: Patient is a 63-year-old -[place] man from [facility] with a plethora of co-morbidities including blindness, CVA, CHF, PPM/ICD, loop recorder since 2013 that is MRI compatible, IDDM type 2, sepsis left foot ulcer, afib, ESRD with complications on HD TTS, hypertension, AOCD and GERD who presented to [facility] with altered sensorium and decreased responsiveness. Decreased responsive and not eating at all for 2 days. Patient has failure to thrive, altered mentation and weight loss of 20 pounds since 12/08/2018. Severe Sepsis due to Necrotizing Unstagable sacral decubitus ulcer with ostemomylitis s/p OR on 01/01/2019 for open excisional debridement of necrotic and infected sacral wound noted a large amount of necrotic tissue debrided and two abscess cavities at the caudad portion of the wound with a copious amount of purulent drainage which was drained. Wound cultures 01/02/2019 ESBL Kleb, MDR Ecoli and E raffinosus resistant to penicillin: On meropenam and vanc per ID. Consult Vascular surgery for central line placement, planned for diverting colostomy, family has agreed, Cardiology re-evaluated for surgery, input noted, high CV risk. Dr. Villela recommend [place], 01/08/19, now ongoing to run till 02/16/19. Further debridement done 01/14/19. he is medically stable awaiting placement. case management working on placement. Acute on chronic Anemia of AOCD: Continue epoetin, total of 8 units PRBC, follow cbc- no occult GI bleed noted. GI input noted, No retroperitoneal bleed noted. Although 150cc Of blood loss documented during debridement No further bleeding from sacral wound noted Dakins moistened kerlex packing started Pt is s/p x1 DDVAP Chest pain, now resolved Acute metabolic encephalopathy due to the above Acute systolic exacerbation of CHF (congestive heart failure): treat via Ultrafiltration during HD Afib with RVR: rate control only and optimize meds per Cardiology ESRD needing dialysis: Nephology is managing, Continue hemo dialysis Insulin dependent diabetes mellitus, A1c is 4.2: insulin was dc Severe malnutrition with FTT: 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, cont oral diet, production engineer track input appreciated, PEG tube placed on 01/02/19 Hypertension: Continue antihypertensives h/o Peripheral neuropathy: Continue gabapentin Elevated troponin, Secondary to end-stage renal disease, chf and afib, Cardio logy input appreciated DVT prophylaxis On heparin and GI prophylaxis Hyperkalemia Resolved Poor prognosis discussed with family member Mr Jennifer Mims. Per discussion with Surgery and as documented by them "Very poor prognosis for wound healing. I do not feel wound will ever heal due to extensive nature, poor nutrition, bedbound status, among other comorbidities. Recommend hospice." Family not accepting at this time. Ok to dc to NH when bed available. Would hold off on vac and continue dakins dressings to wound. May follow up in wound care center after dc. Discussed with case management. Still Awaiting placement History Interval history: c/o chest pain, night of 01/20 now resolved No new complaints No fever Hospitalist Physical - Physical exam Narrative exam: Gen: Not in acute distress, obese,ill looking HEENT: Normocephalic, atraumatic Neck: supple, no JVD Heart: S1 and S2 reg, no murmurs, rubs or gallop Lungs: Clear, no crackles, no wheeze Abd: soft, non tender, non distended, normal BS, PEg tube Ext: Contracted, no clubbing, no cyanosis, Sacrum: sacral decub ulcer Neuro: Lethargic, - Constitutional Vitals: Temp Pulse Resp BP Pulse Ox 98.9 F 73 19 117/63 98 01/26/19 06:09 01/26/19 06:09 01/26/19 06:54 01/26/19 06:09 01/26/19 06:09 General appearance: Present: no acute distress Results - Labs CBC & Chem 7: 01/25/19 05:05 01/25/19 05:05 Labs: Laboratory Last Values WBC 6.7 K/mm3 (4.5-11.0) 01/25/19 05:05 RBC 3.14 M/mm3 (3.65-5.03) L 01/25/19 05:05 Hgb 9.1 gm/dl (11.8-15.2) L 01/25/19 05:05 Hct 28.1 % (35.5-45.6) L 01/25/19 05:05 MCV 89 fl (84-94) 01/25/19 05:05 MCH 29 pg (28-32) 01/25/19 05:05 MCHC 32 % (32-34) 01/25/19 05:05 RDW 18.0 % (13.2-15.2) H 01/25/19 05:05 Plt Count 265 K/mm3 (140-440) 01/25/19 05:05 Lymph % (Auto) 11.4 % (13.4-35.0) L 01/25/19 05:05 [place] % (Auto) 11.2 % (0.0-7.3) H 01/25/19 05:05 Eos % (Auto) 8.2 % (0.0-4.3) H 01/25/19 05:05 Baso % (Auto) 1.9 % (0.0-1.8) H 01/25/19 05:05 Lymph # 0.8 K/mm3 (1.2-5.4) L 01/25/19 05:05 [place] # 0.7 K/mm3 (0.0-0.8) 01/25/19 05:05 Eos # 0.5 K/mm3 (0.0-0.4) H 01/25/19 05:05 Baso # 0.1 K/mm3 (0.0-0.1) 01/25/19 05:05 Add Manual Diff Complete 01/03/19 17:16 Total Counted 100 01/03/19 17:16 Seg Neutrophils % 67.3 % (40.0-70.0) 01/25/19 05:05 Seg Neuts % (Manual) 96.0 % (40.0-70.0) H 01/03/19 17:16 0 % 01/03/19 17:16 2.0 % (13.4-35.0) L 01/03/19 17:16 Reactive Lymphs % (Man) 0 % 01/03/19 17:16 2.0 % (0.0-7.3) 01/03/19 17:16 0 % (0.0-4.3) 01/03/19 17:16 0 % (0.0-1.8) 01/03/19 17:16 0 % 01/03/19 17:16 0 % 01/03/19 17:16 0 % 01/03/19 17:16 0 % 01/03/19 17:16 Nucleated RBC % Not Reportable 01/03/19 17:16 Seg Neutrophils # 4.5 K/mm3 (1.8-7.7) 01/25/19 05:05 Seg Neutrophils # Man 10.8 K/mm3 (1.8-7.7) H 01/03/19 17:16 Band Neutrophils # 0.0 K/mm3 01/03/19 17:16 0.2 K/mm3 (1.2-5.4) L 01/03/19 17:16 Abs React Lymphs (Man) 0.0 K/mm3 01/03/19 17:16 0.2 K/mm3 (0.0-0.8) 01/03/19 17:16 0.0 K/mm3 (0.0-0.4) 01/03/19 17:16 0.0 K/mm3 (0.0-0.1) 01/03/19 17:16 0.0 K/mm3 01/03/19 17:16 0.0 K/mm3 01/03/19 17:16 0.0 K/mm3 01/03/19 17:16 Blast Cells # 0.0 K/mm3 01/03/19 17:16 WBC Morphology Not Reportable 01/03/19 17:16 Hypersegmented Neuts Not Reportable 01/03/19 17:16 Hyposegmented Neuts Not Reportable 01/03/19 17:16 Hypogranular Neuts Not Reportable 01/03/19 17:16 Not Reportable 01/03/19 17:16 Not Reportable 01/03/19 17:16 Not Reportable 01/03/19 17:16 Not Reportable 01/03/19 17:16 Not Reportable 01/03/19 17:16 Not Reportable 01/03/19 17:16 Consistent w auto 01/03/19 17:16 Not Reportable 01/03/19 17:16 Plt Clumps, EDTA Not Reportable 01/03/19 17:16 Not Reportable 01/03/19 17:16 Not Reportable 01/03/19 17:16 Not Reportable 01/03/19 17:16 Plt Morphology Comment Not Reportable 01/03/19 17:16 RBC Morphology Not Reportable 01/03/19 17:16 Dimorphic RBCs Not Reportable 01/03/19 17:16 Not Reportable 01/03/19 17:16 1+ 01/03/19 17:16 Few 01/03/19 17:16 1+ 01/03/19 17:16 Not Reportable 01/03/19 17:16 Not Reportable 01/03/19 17:16 Not Reportable 01/03/19 17:16 Not Reportable 01/03/19 17:16 Not Reportable 01/03/19 17:16 Few 01/03/19 17:16 Not Reportable 01/03/19 17:16 Few 01/03/19 17:16 Not Reportable 01/03/19 17:16 Not Reportable 01/03/19 17:16 Not Reportable 01/03/19 17:16 Not Reportable 01/03/19 17:16 Not Reportable 01/03/19 17:16 Not Reportable 01/03/19 17:16 Not Reportable 01/03/19 17:16 Acanthocytes (Spur) Not Reportable 01/03/19 17:16 Rouleaux Not Reportable 01/03/19 17:16 Not Reportable 01/03/19 17:16 Not Reportable 01/03/19 17:16 Not Reportable 01/03/19 17:16 Not Reportable 01/03/19 17:16 Hem Pathologist Commnt No 01/03/19 17:16 PT 18.0 Sec. (12.2-14.9) H 01/02/19 05:39 INR 1.39 (0.87-1.13) H 01/02/19 05:39 Sodium 135 mmol/L (137-145) L 01/25/19 05:05 Potassium 4.9 mmol/L (3.6-5.0) 01/25/19 05:05 Chloride 96.9 mmol/L (98-107) L 01/25/19 05:05 Carbon Dioxide 30 mmol/L (22-30) 01/25/19 05:05 13 mmol/L 01/25/19 05:05 BUN 23 mg/dL (9-20) H 01/25/19 05:05 1.9 mg/dL (0.8-1.5) H 01/25/19 05:05 Estimated GFR 43 ml/min 01/25/19 05:05 12 % 01/25/19 05:05 Glucose 136 mg/dL (75-100) H 01/25/19 05:05 POC Glucose 139 (70-105) H 01/26/19 08:07 < 4.2 % (4-6) 12/26/18 17:12 Lactic Acid 1.10 mmol/L (0.7-2.0) 12/27/18 07:04 Calcium 9.1 mg/dL (8.4-10.2) 01/25/19 05:05 Phosphorus 2.90 mg/dL (2.5-4.5) D 01/05/19 04:56 Magnesium 2.00 mg/dL (1.7-2.3) 01/05/19 04:56 0.20 mg/dL (0.1-1.2) 01/07/19 11:16 AST 12 units/L (5-40) 01/07/19 11:16 ALT < 5 units/L (7-56) L 01/07/19 11:16 92 units/L (35-129) 01/07/19 11:16 29 units/L (55-170) L 12/26/18 17:12 0.201 ng/mL (0.00-0.029) H* 01/21/19 08:05 5.7 g/dL (6.3-8.2) L 01/07/19 11:16 2.0 g/dL (3.9-5) L 01/07/19 11:16 0.5 % 01/07/19 11:16 Triglycerides 46 mg/dL (2-149) 01/21/19 04:23 Cholesterol 64 mg/dL (50-199) 01/21/19 04:23 34 mg/dL (50-130) L 01/21/19 04:23 27 mg/dL (40-59) L 01/21/19 04:23 2.37 % 01/21/19 04:23 PTH Intact 178.6 pg/mL (15-65) H 01/01/19 17:32 Random Vancomycin 19.4 ug/mL (0-40.0) 01/24/19 10:59 Hepatitis A IgM Ab Non-reactive (NonReactive) 01/22/19 10:34 Hep Bs Antigen Non-reactive (Negative) 01/22/19 10:34 Hep B Core IgM Ab Non-reactive (NonReactive) 01/22/19 10:34 Non-reactive (NonReactive) 01/22/19 10:34 Blood Type O POSITIVE 01/16/19 15:06 Antibody Screen Negative 01/16/19 15:06 Crossmatch See Detail 01/16/19 15:06 Active Medications - Current Medications Current Medications: Generic Name Dose Route Start Last Admin Trade Name Freq PRN Reason Stop Dose Admin Acetaminophen 650 mg 12/26/18 21:40 01/10/19 18:33 Tylenol PO 650 mg Q4H PRN Administration Pain MILD(1-3)/Fever >100.5/HILL Lipase/Protease/Amylase 1 each 01/16/19 17:11 Pancreaze 10,500 Unit FEEDTUBE PRN PRN For Clogged Feeding Tube Aspirin 81 mg 12/27/18 10:00 01/26/19 12:27 Halfprin Ec PO 81 mg DAILY SANCHEZ Administration Diltiazem HCl 60 mg 01/22/19 10:00 01/26/19 12:27 Cardizem PO 60 mg BID SANCHEZ Administration Diphenhydramine HCl 25 mg 01/26/19 05:54 Benadryl PO Q6H PRN Itching Epoetin Solitario 20,000 unit 01/05/19 11:03 01/24/19 12:49 Procrit IV 20,000 unit UMA PRN Administration hemodialysis Famotidine 20 mg 12/27/18 10:00 01/26/19 12:28 Pepcid PO 20 mg DAILY SANCHEZ Administration Folic Acid 1 mg 12/27/18 10:00 01/26/19 12:27 Folvite PO 1 mg DAILY SANCHEZ Administration Gabapentin 100 mg 12/26/18 22:00 01/25/19 21:03 Neurontin PO 100 mg QHS SANCHEZ Administration Heparin Sodium (Porcine) 5,000 unit 01/23/19 22:00 01/26/19 12:28 Heparin SUB-Q 5,000 unit Q12HR SANCHEZ Administration Hydralazine HCl 100 mg 12/26/18 22:00 01/26/19 05:45 Apresoline PO 100 mg Q8HR SANCHEZ Administration Meropenem 1,000 mg/ Sodium 100 mls @ 100 mls/hr 01/05/19 11:00 01/26/19 12:26 Chloride IV 02/16/19 10:59 100 mls/hr Q24HR SANCHEZ Administration Vancomycin HCl 1 gm in 250 mls @ 167.007 mls/hr 01/06/19 20:00 01/24/19 20:30 Vancomycin/Ns 1 Gm/250 Ml IV 02/17/19 21:30 167.007 mls/hr TuThSa SANCHEZ Administration Sodium Chloride 100 mls @ 999 mls/hr 01/19/19 09:29 Nacl 0.9% IV UMA PRN Hypotension Insulin Human Regular 0 units 01/14/19 00:00 01/26/19 06:00 Humulin R SUB-Q Not Given Q6HR [facility] Protocol Metoprolol Tartrate 100 mg 12/31/18 22:00 01/26/19 12:28 Lopressor PO 100 mg BID SANCHEZ Administration Morphine Sulfate 2 mg 01/21/19 04:08 01/25/19 04:58 Morphine IV 2 mg Q4H PRN Administration Pain, Moderate (4-6) Nitroglycerin 0.4 mg 01/21/19 04:05 01/21/19 04:15 Nitrostat SL 0.4 mg .Q5MIN PRN Administration Chest Pain Ondansetron HCl 4 mg 12/26/18 21:40 01/10/19 12:23 Zofran IV 4 mg Q8H PRN Administration Nausea And Vomiting Oxycodone/Acetaminophen 1 tab 01/05/19 08:30 01/26/19 05:54 Percocet 5/325 PO 1 tab Q6H PRN Administration Pain, Moderate (4-6) Risperidone 0.5 mg 12/26/18 22:00 01/25/19 21:02 Risperdal PO 0.5 mg QHS SANCHEZ Administration Risperidone 1 mg 12/27/18 10:00 01/26/19 12:27 Risperdal PO 1 mg QAM SANCHEZ Administration Sertraline HCl 100 mg 12/27/18 10:00 01/26/19 12:27 Zoloft PO 100 mg QDAY SANCHEZ Administration Simple Syrup 15 ml 01/16/19 17:11 Simple Syrup FEEDTUBE PRN PRN Hypoglycemia Simple Syrup 30 ml 01/16/19 17:11 Simple Syrup FEEDTUBE PRN PRN Hypoglycemia Sodium Bicarbonate 325 mg 01/16/19 17:11 Sodium Bicarbonate FEEDTUBE PRN PRN For Clogged Feeding Tube Sodium Chloride 10 ml 12/26/18 22:00 01/25/19 21:27 Sodium Chloride Flush Syringe 10 Ml IV 10 ml BID SANCHEZ Administration Sodium Chloride 10 ml 12/26/18 21:40 01/16/19 21:00 Sodium Chloride Flush Syringe 10 Ml IV 10 ml PRN PRN Administration LINE FLUSH Sodium Hypochlorite 1 applic 01/19/19 10:00 01/25/19 09:02 Dakin's Half Strength TP 10 applicatio QDAY SANCHEZ Administration Nutrition/Malnutrition Assess - Dietary Evaluation Nutrition/Malnutrition Findings: Nutrition Notes Start: 12/27/18 17:15 Freq: Status: Active Protocol: Document 01/25/19 13:53 RM (Rec: 01/25/19 13:56 RM [id number]) Nutrition Notes Initial or Follow up Reassessment Current Diagnosis CKD (stage V CKD),Diabetes, Sepsis,Hypertension Other Pertinent Diagnosis ESRD on HD, Hx CVA,S/P PEG, Sacral wound, FTT, acute encephalopathy Current Diet Nepro at 40 ml/hr Labs/Tests K 6 (01/24/19) K 4.9 (01/25/19) Pertinent Medications Reviewed Height 5 ft 7 in Weight 85.7 kg [place] Body Weight (kg) 67.27 BMI 29.5 Subjective/Other Information Observed Glucerna 1.2 infusing at 65 ml/hr. [employer] informed nurse that TF formula should be Nepro. Percent of energy/protein needs met: 97%/100% Burn Absent Trauma Absent #2 Nutrition Diagnosis Increased nutrient needs ( specify in comment below) Diagnosis Progress(for reassessment Continues documentation) #1 Nutrition Diagnosis Inadequate oral intake Diagnosis Progress(for reassessment Continues documentation) Is patient on ventilator? No Is Patient Ambulatory and/or Out of Bed No REE-([facility]-confined to bed) 1931.868 Kcal/Kg value to use for calculation 17 Approximate Energy Requirements Using 1457 kcal/Kg Calculation Used for Recommendations [facility] Additional Notes Pro needs 1.2-1.4g/k- 118g/day Fluid needs 1-1.5L/day Nutrition Intervention Nutrition Support: Nepro at 40 ml/hr. Water flush of 150 mls q 4 hrs . Kcal 1,728 Protein (gm) 78 Fluid (mL) 698 Fiber (gm) 25 Goal #1 Meet at least 75% of calorie and protein needs via TF Goal #2 Stable K lab Anticipated Discharge Needs: Nepro Follow-Up By: 01/28/19 Additional Comments Follow for TF tolerance, K lab
[2019-01-26] MEDS: MORPHINE IV PRN (18:16)
[2019-01-26] MEDS: NEURONTIN PO SCH (22:12)
[2019-01-26] MEDS: VANCOMYCIN/NS 1 GM/250 ML 1 GM/250 ML BAG IV SCH (22:24)
[2019-01-27] MEDS: HumuLIN R SUB-Q SCH ×3 (00:52→13:24)
[2019-01-27 06:11] LABS: Hematocrit TNR % (35.5-45.6); Hemoglobin TNR gm/dl (11.8-15.2); Mean Corpuscular HGB Conc TNR % (32-34); Mean Corpuscular Volume TNR fl (84-94); Mean Platelet Volume TNR fl (6-12); Platelet Count TNR K/mm3 (140-440); Red Blood Count TNR M/mm3 (3.65-5.03); Red Cell Distribution Width TNR % (13.2-15.2)
[2019-01-27] MEDS: APRESOLINE PO SCH ×3 (06:26→23:33)
[2019-01-27 06:30] LABS: Hemolysis Index TNR
[2019-01-27 06:31] LABS: BUN/Creatinine Ratio TNR; Blood Urea Nitrogen TNR mg/dL (9-20); Calcium TNR mg/dL (8.4-10.2)
[2019-01-27 09:01] LABS: Hematocrit 26.6 % (35.5-45.6); Hemoglobin 8.4 gm/dl (11.8-15.2); Mean Corpuscular HGB Conc 32 % (32-34); Mean Corpuscular Volume 89 fl (84-94); Platelet Count 276 K/mm3 (140-440); Red Blood Count 2.98 M/mm3 (3.65-5.03); Red Cell Distribution Width 17.7 % (13.2-15.2)
[2019-01-27 09:10] LABS: Calcium 9.3 mg/dL (8.4-10.2)
--- NOTE | 2019-01-27 09:33 | Progress Note ---
Assessment and Plan Impression * End-stage renal disease on maintenance hemodialysis * Altered mental status * Sacral decubitus * Status post diverting colostomy * Hypokalemia * Failure to thrive * Hypophosphatemia * Malnutrition * Anemia secondary to ESRD * Hypomagnesemia Recommendations * Patient is scheduled for hemodialysis for today . * Continue dialysis on TTS schedule for now * Serum potassium is now 5.2. Used to K bath for dialysis * Antibiotic therapy and local wound care as per primary team * Avoid nephrotoxins * Epogen with dialysis * Adjust diet and meds for ESRD state Subjective Date of service: 01/27/19 Principal diagnosis: afib Interval history: Patient is clinically about the same. Remains nonverbal. Tolerating PEG tube feeding Objective - Vital Signs Vital signs: Vital Signs - 12hr 01/26/19 01/26/19 01/27/19 22:17 22:44 04:57 Temperature 98.3 F 97.7 F Pulse Rate 76 74 72 Respiratory 18 18 Rate Blood Pressure 138/81 142/78 139/77 O2 Sat by Pulse 93 98 Oximetry - General Appearance General appearance: well-developed, well-nourished, appears stated age EENT: other (blind right eye) Neck: no JVD, no thyromegaly, no carotid bruit, supple, other (right IJ PermCath in place) Respiratory: Present: Clear to Ascultation Cardiology: regular, normal heart rate, S1S2, no murmurs Gastrointestinal: normal, normoactive bowel sounds, other (PICU in place. Colostomy bag noted) Integumentary: other (no edema) - Lab 01/27/19 08:40 01/27/19 08:40 Most recent lab results Calcium 9.3 mg/dL (8.4-10.2) 01/27/19 08:40 Phosphorus 2.90 mg/dL (2.5-4.5) D 01/05/19 04:56 Magnesium 2.00 mg/dL (1.7-2.3) 01/05/19 04:56 Medications & Allergies - Medications Allergies/Adverse Reactions: Allergies haloperidol [From Haldol] Adverse Reaction (Verified 03/13/18 12:10) Unknown haloperidol lactate [From Haldol] Adverse Reaction (Verified 03/13/18 12:10) Unknown Home Medications: Home Medications Medication Instructions Recorded Confirmed Last Taken Type risperiDONE [RisperDAL] 1 mg PO QAM 03/13/18 12/27/18 Unknown History Sertraline [Zoloft] 100 mg PO QDAY 08/26/18 12/27/18 Unknown History risperiDONE [RisperDAL] 0.5 mg PO HS 08/26/18 12/27/18 Unknown History Polyethylene Glycol 3350 [Miralax 17 gm PO QDAY #30 packet 11/05/18 12/27/18 Unknown Rx 3350] Aspirin EC 81 mg PO DAILY #30 11/19/18 12/27/18 Unknown Rx Docusate Sodium [Colace CAP] 100 mg PO BID #60 11/19/18 12/27/18 Unknown Rx Folic Acid [Folvite] 1 mg PO DAILY #30 tab 11/19/18 12/27/18 Unknown Rx Famotidine [Pepcid] 20 mg PO DAILY tablet 12/08/18 12/27/18 Unknown Rx Gabapentin [Neurontin] 100 mg PO QHS capsule 12/08/18 12/27/18 Unknown Rx Metoprolol [Lopressor TAB] 50 mg PO BID 30 Days tablet 12/08/18 12/27/18 Unknown Rx Sevelamer Carbonate [Renvela] 800 mg PO TIDWM tablet 12/08/18 12/27/18 Unknown Rx hydrALAZINE [Apresoline TAB] 100 mg PO Q8HR #120 tablet 12/08/18 12/27/18 Unknown Rx Acetaminophen [Acetaminophen TAB] 650 mg PO Q12H PRN 12/15/18 12/27/18 Unknown History Amino Acids/Protein Hydrolys 30 ml PO BID 12/15/18 12/27/18 Unknown History [Pro-Stat Sugar Free Liquid] Glucagon,Human Recombinant 1 mg IJ Q15MIN PRN 12/15/18 12/27/18 Unknown History [Glucagon Emergency Kit] Insulin Aspart [NovoLOG 100 See Protocol SQ QWEEK 12/15/18 12/27/18 Unknown History UNITS/ML VIAL] Epoetin Solitario 10,000 Unit [Procrit] 10,000 unit IV UMA PRN vial 12/18/18 12/27/18 Unknown Rx Lispro Insulin [HumaLOG] 0 unit SUB-Q ACHS units 12/18/18 12/27/18 Unknown Rx risperiDONE [RisperDAL] 0.5 mg PO QHS tablet 12/18/18 12/27/18 Unknown Rx Meropenem [Merrem] 1,000 mg IV Q24HR vial 01/16/19 Unknown Rx Active Medications: Generic Name Dose Route Start Last Admin Trade Name Freq PRN Reason Stop Dose Admin Lipase/Protease/Amylase 1 each 01/16/19 17:11 Mc Barrientos 10,500 Unit FEEDTUBE PRN PRN For Clogged Feeding Tube Aspirin 81 mg 12/27/18 10:00 01/26/19 12:27 Halfprin Ec PO 81 mg DAILY SANCHEZ Administration Diltiazem HCl 60 mg 01/22/19 10:00 01/26/19 22:17 Cardizem PO 60 mg BID SANCHEZ Administration Diphenhydramine HCl 25 mg 01/26/19 05:54 Benadryl PO Q6H PRN Itching Epoetin Solitario 20,000 unit 01/05/19 11:03 01/24/19 12:49 Procrit IV 20,000 unit UMA PRN Administration hemodialysis Famotidine 20 mg 12/27/18 10:00 01/26/19 12:28 Pepcid PO 20 mg DAILY SANCHEZ Administration Folic Acid 1 mg 12/27/18 10:00 01/26/19 12:27 Folvite PO 1 mg DAILY SANCHEZ Administration Gabapentin 100 mg 12/26/18 22:00 01/26/19 22:12 Neurontin PO 100 mg QHS SANCHEZ Administration Heparin Sodium (Porcine) 5,000 unit 01/23/19 22:00 01/26/19 22:12 Heparin SUB-Q 5,000 unit Q12HR SANCHEZ Administration Hydralazine HCl 100 mg 12/26/18 22:00 01/27/19 06:26 Apresoline PO 100 mg Q8HR SANCHEZ Administration Meropenem 1,000 mg/ Sodium 100 mls @ 100 mls/hr 01/05/19 11:00 01/26/19 12:26 Chloride IV 02/16/19 10:59 100 mls/hr Q24HR SANCHEZ Administration Vancomycin HCl 1 gm in 250 mls @ 167.007 mls/hr 01/06/19 20:00 01/26/19 22:24 Vancomycin/Ns 1 Gm/250 Ml IV 02/16/19 19:59 167.007 mls/hr TuThSa SANCHEZ Administration Sodium Chloride 100 mls @ 999 mls/hr 01/19/19 09:29 Nacl 0.9% IV UMA PRN Hypotension Insulin Human Regular 0 units 01/14/19 00:00 01/27/19 06:25 Humulin R SUB-Q Not Given Q6HR [facility] Protocol Metoprolol Tartrate 100 mg 12/31/18 22:00 01/26/19 22:17 Lopressor PO 100 mg BID SANCHEZ Administration Morphine Sulfate 2 mg 01/21/19 04:08 01/26/19 18:16 Morphine IV 2 mg Q4H PRN Administration Pain, Moderate (4-6) Nitroglycerin 0.4 mg 01/21/19 04:05 01/21/19 04:15 Nitrostat SL 0.4 mg .Q5MIN PRN Administration Chest Pain Oxycodone/Acetaminophen 1 tab 01/05/19 08:30 01/26/19 22:16 Percocet 5/325 PO 1 tab Q6H PRN Administration Pain, Moderate (4-6) Risperidone 0.5 mg 12/26/18 22:00 01/26/19 22:12 Risperdal PO 0.5 mg QHS SANCHEZ Administration Risperidone 1 mg 12/27/18 10:00 01/26/19 12:27 Risperdal PO 1 mg QAM SANCHEZ Administration Sertraline HCl 100 mg 12/27/18 10:00 01/26/19 12:27 Zoloft PO 100 mg QDAY SANCHEZ Administration Simple Syrup 15 ml 01/16/19 17:11 Simple Syrup FEEDTUBE PRN PRN Hypoglycemia Simple Syrup 30 ml 01/16/19 17:11 Simple Syrup FEEDTUBE PRN PRN Hypoglycemia Sodium Bicarbonate 325 mg 01/16/19 17:11 Sodium Bicarbonate FEEDTUBE PRN PRN For Clogged Feeding Tube Sodium Chloride 10 ml 12/26/18 22:00 01/26/19 22:18 Sodium Chloride Flush Syringe 10 Ml IV 10 ml BID SANCHEZ Administration Sodium Hypochlorite 1 applic 01/19/19 10:00 01/26/19 10:00 Dakin's Half Strength TP 0.25 applicatio QDAY SANCHEZ Administration
[2019-01-27] MEDS: CARDIZEM PO SCH ×2 (09:57→23:31)
[2019-01-27] MEDS: HALFPRIN EC PO SCH (09:57)
[2019-01-27] MEDS: ZOLOFT PO SCH (09:57)
[2019-01-27] MEDS: PEPCID PO SCH (09:58)
[2019-01-27] MEDS: LOPRESSOR PO SCH ×2 (09:58→23:33)
[2019-01-27] MEDS: RisperDAL PO SCH ×2 (09:58→23:32)
[2019-01-27] MEDS: FOLVITE PO SCH (09:58)
[2019-01-27] MEDS: HEPARIN SUB-Q SCH (09:58)
[2019-01-27] MEDS: DAKIN'S HALF STRENGTH TP SCH (09:59)
[2019-01-27] MEDS: SODIUM CHLORIDE FLUSH SYRINGE 10 ML IV SCH ×2 (09:59→23:34)
[2019-01-27] MEDS: MERREM 1,000 MG in NACL 0.9% 100 ML IV SCH (10:00)
[2019-01-27] MEDS: PERCOCET 5/325 PO PRN (13:24)
--- NOTE | 2019-01-27 13:45 | Progress Note ---
Assessment and Plan /Severe Sepsis due to Necrotizing Unstagable sacral decubitus ulcer with ostemomylitis s/p OR on 01/01/2019 for open excisional debridement of necrotic and infected sacral wound noted a large amount of necrotic tissue debrided and two abscess cavities at the caudad portion of the wound with a copious amount of purulent drainage which was drained. Wound cultures 01/02/2019 ESBL Kleb, MDR Ecoli and E raffinosus resistant to penicillin: On meropenam and vanc per ID. Consult Vascular surgery for central line placement, planned for diverting colostomy, family has agreed, Cardiology re-evaluated for surgery, input noted, high CV risk. Dr. Villela recommend Mere, 01/08/19, now ongoing to run till 02/16/19. Further debridement done 01/14/19. he is medically stable awaiting placement. case management working on placement. /Acute on chronic Anemia of AOCD: Continue epoetin, total of 8 units PRBC, follow cbc- no occult GI bleed noted. GI input noted, No retroperitoneal bleed noted. Although 150cc Of blood loss documented during debridement No further bleeding from sacral wound noted Dakins moistened kerlex packing started Pt is s/p x1 DDVAP /Chest pain, now resolved, medical management /Acute metabolic encephalopathy due to the above /Acute systolic exacerbation of CHF (congestive heart failure): treat via Ultrafiltration during HD /Afib with RVR: rate control only and optimize meds per Cardiology /ESRD needing dialysis: Nephology is managing, Continue hemo dialysis /Insulin dependent diabetes mellitus, A1c is 4.2: insulin was dc /Severe malnutrition with FTT: 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, cont oral diet, stitcher set up operator automatic input appreciated, PEG tube placed on 01/02/19 /Hypertension: Continue antihypertensives /h/o Peripheral neuropathy: Continue gabapentin /Elevated troponin, Secondary to end-stage renal disease, chf and afib, C ardiology input appreciated DVT prophylaxis On heparin and GI prophylaxis /Hyperkalemia Resolved Poor prognosis discussed with family member Mr Jennifer Mims. Per discussion with Surgery and as documented by them "Very poor prognosis for wound healing. I do not feel wound will ever heal due to extensive nature, poor nutrition, bedbound status, among other comorbidities. Recommend hospice." Family not accepting at this time. Ok to dc to NH when bed available. Would hold off on vac and continue dakins dressings to wound. May follow up in wound care center after dc. Discussed with case management. Still Awaiting placement Brief history: Patient is a 63-year-old -[place] man from [facility] with a plethora of co-morbidities including blindness, CVA, CHF, PPM/ICD, loop recorder since 2012 that is MRI compatible, IDDM type 2, sepsis left foot ulcer, afib, ESRD with complications on HD TTS, hypertension, AOCD and GERD who presented to [facility] with altered sensorium and decreased responsiveness. Decreased responsive and not eating at all for 2 days. Patient has failure to thrive, altered mentation and weight loss of 20 pounds since 12/08/2018. Hospitalist Physical Gen: Not in acute distress, obese,ill looking HEENT: Normocephalic, atraumatic Neck: supple, no JVD Heart: S1 and S2 reg, no murmurs, rubs or gallop Lungs: Clear, no crackles, no wheeze Abd: soft, non tender, non distended, normal BS, PEg tube Ext: Contracted, no clubbing, no cyanosis, Sacrum: sacral decub ulcer Neuro: Lethargic, Subjective Date of service: 01/27/19 Principal diagnosis: afib Interval history: Patient seen and examined. Medical records and medication list reviewed. No acute event overnight noted by the RN. Discussed plan of care at bedside with patient's RN and CM Discharge pending on placement. Objective - Constitutional Vitals: Vital Signs - 12hr 01/27/19 01/27/19 01/27/19 04:57 09:57 09:58 Temperature 97.7 F Pulse Rate 72 Respiratory 18 Rate Blood Pressure 139/77 135/76 135/76 O2 Sat by Pulse 98 Oximetry 01/27/19 12:34 Temperature 98.2 F Pulse Rate 72 Respiratory 18 Rate Blood Pressure 111/60 O2 Sat by Pulse 93 Oximetry - Labs CBC & Chem 7: 01/27/19 08:40 01/28/19 12:37 Labs: Abnormal lab results 01/26/19 01/26/19 01/26/19 Range/Units 12:57 17:48 23:18 RBC (3.65-5.03) M/mm3 Hgb (11.8-15.2) gm/dl Hct (35.5-45.6) % RDW (13.2-15.2) % Sodium (137-145) mmol/L Potassium (3.6-5.0) mmol/L Chloride (98-107) mmol/L BUN (9-20) mg/dL Creatinine (0.8-1.5) mg/dL Glucose (75-100) mg/dL POC Glucose 124 H 133 H 145 H (70-105) 01/27/19 01/27/19 01/27/19 Range/Units 06:12 08:40 08:40 RBC 2.98 L (3.65-5.03) M/mm3 Hgb 8.4 L (11.8-15.2) gm/dl Hct 26.6 L (35.5-45.6) % RDW 17.7 H (13.2-15.2) % Sodium 132 L (137-145) mmol/L Potassium 5.2 H (3.6-5.0) mmol/L Chloride 94.7 L (98-107) mmol/L BUN 40 H (9-20) mg/dL Creatinine 2.9 H D (0.8-1.5) mg/dL Glucose 112 H (75-100) mg/dL POC Glucose 143 H (70-105) 01/27/19 Range/Units 12:31 RBC (3.65-5.03) M/mm3 Hgb (11.8-15.2) gm/dl Hct (35.5-45.6) % RDW (13.2-15.2) % Sodium (137-145) mmol/L Potassium (3.6-5.0) mmol/L Chloride (98-107) mmol/L BUN (9-20) mg/dL Creatinine (0.8-1.5) mg/dL Glucose (75-100) mg/dL POC Glucose 158 H (70-105)
[2019-01-27] MEDS ORDERED: NACL 0.9 (PRIMING MACHINE ONLY DIALYSIS) MC ONE (15:01)
[2019-01-27] MEDS: NEURONTIN PO SCH (23:33)
[2019-01-27] MEDS: VANCOMYCIN/NS 1 GM/250 ML 1 GM/250 ML BAG IV SCH (23:35)
[2019-01-28] MEDS: HEPARIN SUB-Q SCH ×3 (00:13→22:45)
[2019-01-28] MEDS: HumuLIN R SUB-Q SCH ×3 (00:14→18:17)
[2019-01-28] MEDS: APRESOLINE PO SCH ×3 (05:56→22:19)
--- NOTE | 2019-01-28 10:17 | Progress Note ---
Assessment and Plan Impression * End-stage renal disease on maintenance hemodialysis * Altered mental status * Sacral decubitus * Status post diverting colostomy * Hypokalemia * Failure to thrive * Hypophosphatemia * Malnutrition * Anemia secondary to ESRD * Hypomagnesemia Recommendations * Patient had uneventful hemodialysis yesterday . * Continue dialysis on TTS schedule for now * Serum potassium was 5.2 yesterday. Continue 2K bath for dialysis * Antibiotic therapy and local wound care as per primary team * Avoid nephrotoxins * Epogen with dialysis * Adjust diet and meds for ESRD state Subjective Date of service: 01/28/19 Principal diagnosis: afib Interval history: Patient is clinically about the same. Remains nonverbal. Tolerating PEG tube feeding Objective - Vital Signs Vital signs: Vital Signs - 12hr 01/27/19 01/27/19 01/28/19 23:31 23:33 05:38 Temperature 97.4 F L Pulse Rate 82 82 76 Respiratory 20 Rate Blood Pressure 122/74 122/74 119/68 O2 Sat by Pulse 99 Oximetry - General Appearance General appearance: chronically ill, frail EENT: ATNC, other (blind right eye) Neck: no JVD, no thyromegaly, no carotid bruit, supple, other (IJ PermCath in place) Respiratory: Present: Clear to Ascultation Cardiology: regular, normal heart rate, S1S2, no murmurs Gastrointestinal: normoactive bowel sounds, other (PEG tube in place. Colostomy bag noted.) Integumentary: other (no edema) - Lab 01/27/19 08:40 01/27/19 08:40 Most recent lab results Calcium 9.3 mg/dL (8.4-10.2) 01/27/19 08:40 Phosphorus 2.90 mg/dL (2.5-4.5) D 01/05/19 04:56 Magnesium 2.00 mg/dL (1.7-2.3) 01/05/19 04:56 Medications & Allergies - Medications Allergies/Adverse Reactions: Allergies haloperidol [From Haldol] Adverse Reaction (Verified 03/13/18 12:10) Unknown haloperidol lactate [From Haldol] Adverse Reaction (Verified 03/13/18 12:10) Unknown Home Medications: Home Medications Medication Instructions Recorded Confirmed Last Taken Type risperiDONE [RisperDAL] 1 mg PO QAM 03/13/18 12/27/18 Unknown History Sertraline [Zoloft] 100 mg PO QDAY 08/26/18 12/27/18 Unknown History risperiDONE [RisperDAL] 0.5 mg PO HS 08/26/18 12/27/18 Unknown History Polyethylene Glycol 3350 [Miralax 17 gm PO QDAY #30 packet 11/05/18 12/27/18 Unknown Rx 3350] Aspirin EC 81 mg PO DAILY #30 11/19/18 12/27/18 Unknown Rx Docusate Sodium [Colace CAP] 100 mg PO BID #60 11/19/18 12/27/18 Unknown Rx Folic Acid [Folvite] 1 mg PO DAILY #30 tab 11/19/18 12/27/18 Unknown Rx Famotidine [Pepcid] 20 mg PO DAILY tablet 12/08/18 12/27/18 Unknown Rx Gabapentin [Neurontin] 100 mg PO QHS capsule 12/08/18 12/27/18 Unknown Rx Metoprolol [Lopressor TAB] 50 mg PO BID 30 Days tablet 12/08/18 12/27/18 Unknown Rx Sevelamer Carbonate [Renvela] 800 mg PO TIDWM tablet 12/08/18 12/27/18 Unknown Rx hydrALAZINE [Apresoline TAB] 100 mg PO Q8HR #120 tablet 12/08/18 12/27/18 Unknown Rx Acetaminophen [Acetaminophen TAB] 650 mg PO Q12H PRN 12/15/18 12/27/18 Unknown History Amino Acids/Protein Hydrolys 30 ml PO BID 12/15/18 12/27/18 Unknown History [Pro-Stat Sugar Free Liquid] Glucagon,Human Recombinant 1 mg IJ Q15MIN PRN 12/15/18 12/27/18 Unknown History [Glucagon Emergency Kit] Insulin Aspart [NovoLOG 100 See Protocol SQ QWEEK 12/15/18 12/27/18 Unknown History UNITS/ML VIAL] Epoetin Solitario 10,000 Unit [Procrit] 10,000 unit IV UMA PRN vial 12/18/18 12/27/18 Unknown Rx Lispro Insulin [HumaLOG] 0 unit SUB-Q ACHS units 12/18/18 12/27/18 Unknown Rx risperiDONE [RisperDAL] 0.5 mg PO QHS tablet 12/18/18 12/27/18 Unknown Rx Meropenem [Merrem] 1,000 mg IV Q24HR vial 01/16/19 Unknown Rx Active Medications: Generic Name Dose Route Start Last Admin Trade Name Freq PRN Reason Stop Dose Admin Lipase/Protease/Amylase 1 each 01/16/19 17:11 Pancrejewel Barrientos 10,500 Unit FEEDTUBE PRN PRN For Clogged Feeding Tube Aspirin 81 mg 12/27/18 10:00 01/27/19 09:57 Halfprin Ec PO 81 mg DAILY SANCHEZ Administration Diltiazem HCl 60 mg 01/22/19 10:00 01/27/19 23:31 Cardizem PO 60 mg BID SANCHEZ Administration Diphenhydramine HCl 25 mg 01/26/19 05:54 Benadryl PO Q6H PRN Itching Epoetin Solitario 20,000 unit 01/05/19 11:03 01/24/19 12:49 Procrit IV 20,000 unit UMA PRN Administration hemodialysis Famotidine 20 mg 12/27/18 10:00 01/27/19 09:58 Pepcid PO 20 mg DAILY SANCHEZ Administration Folic Acid 1 mg 12/27/18 10:00 01/27/19 09:58 Folvite PO 1 mg DAILY SANCHEZ Administration Gabapentin 100 mg 12/26/18 22:00 01/27/19 23:33 Neurontin PO 100 mg QHS SANCHEZ Administration Heparin Sodium (Porcine) 5,000 unit 01/23/19 22:00 01/28/19 00:13 Heparin SUB-Q 5,000 unit Q12HR SANCHEZ Administration Hydralazine HCl 100 mg 12/26/18 22:00 01/28/19 05:56 Apresoline PO Not Given Q8HR SANCHEZ Meropenem 1,000 mg/ Sodium 100 mls @ 100 mls/hr 01/05/19 11:00 01/27/19 10:00 Chloride IV 02/16/19 10:59 100 mls/hr Q24HR SANCHEZ Administration Vancomycin HCl 1 gm in 250 mls @ 167.007 mls/hr 01/06/19 20:00 01/27/19 23:35 Vancomycin/Ns 1 Gm/250 Ml IV 02/16/19 19:59 167.007 mls/hr TuThSa SANCHEZ Administration Sodium Chloride 100 mls @ 999 mls/hr 01/19/19 09:29 Nacl 0.9% IV UMA PRN Hypotension Insulin Human Regular 0 units 01/14/19 00:00 01/28/19 00:14 Humulin R SUB-Q Not Given Q6HR [facility] Protocol Metoprolol Tartrate 100 mg 12/31/18 22:00 01/27/19 23:33 Lopressor PO 100 mg BID SANCHEZ Administration Morphine Sulfate 2 mg 01/21/19 04:08 01/26/19 18:16 Morphine IV 2 mg Q4H PRN Administration Pain, Moderate (4-6) Nitroglycerin 0.4 mg 01/21/19 04:05 01/21/19 04:15 Nitrostat SL 0.4 mg .Q5MIN PRN Administration Chest Pain Oxycodone/Acetaminophen 1 tab 01/05/19 08:30 01/27/19 13:24 Percocet 5/325 PO 1 tab Q6H PRN Administration Pain, Moderate (4-6) Risperidone 0.5 mg 12/26/18 22:00 01/27/19 23:32 Risperdal PO 0.5 mg QHS SANCHEZ Administration Risperidone 1 mg 12/27/18 10:00 01/27/19 09:58 Risperdal PO 1 mg QAM SANCHEZ Administration Sertraline HCl 100 mg 12/27/18 10:00 01/27/19 09:57 Zoloft PO 100 mg QDAY SANCHEZ Administration Simple Syrup 15 ml 01/16/19 17:11 Simple Syrup FEEDTUBE PRN PRN Hypoglycemia Simple Syrup 30 ml 01/16/19 17:11 Simple Syrup FEEDTUBE PRN PRN Hypoglycemia Sodium Bicarbonate 325 mg 01/16/19 17:11 Sodium Bicarbonate FEEDTUBE PRN PRN For Clogged Feeding Tube Sodium Chloride 10 ml 12/26/18 22:00 01/27/19 23:34 Sodium Chloride Flush Syringe 10 Ml IV 10 ml BID SANCHEZ Administration Sodium Hypochlorite 1 applic 01/19/19 10:00 01/27/19 09:59 Dakin's Half Strength TP 1 applicatio QDAY SANCHEZ Administration
[2019-01-28] MEDS: MERREM 1,000 MG in NACL 0.9% 100 ML IV SCH (11:50)
[2019-01-28] MEDS: ZOLOFT PO SCH (11:51)
[2019-01-28] MEDS: CARDIZEM PO SCH ×2 (11:51→22:19)
[2019-01-28] MEDS: PEPCID PO SCH (11:52)
[2019-01-28] MEDS: RisperDAL PO SCH ×2 (11:53→22:22)
[2019-01-28] MEDS: SODIUM CHLORIDE FLUSH SYRINGE 10 ML IV SCH ×2 (11:53→22:22)
[2019-01-28] MEDS: HALFPRIN EC PO SCH (11:53)
[2019-01-28] MEDS: FOLVITE PO SCH (11:53)
[2019-01-28] MEDS: DAKIN'S HALF STRENGTH TP SCH (11:54)
[2019-01-28] MEDS: LOPRESSOR PO SCH ×2 (11:55→22:21)
--- NOTE | 2019-01-28 14:42 | Progress Note ---
Assessment and Plan /Severe Sepsis due to Necrotizing Unstagable sacral decubitus ulcer with ostemomylitis s/p OR on 01/01/2019 for open excisional debridement of necrotic and infected sacral wound noted a large amount of necrotic tissue debrided and two abscess cavities at the caudad portion of the wound with a copious amount of purulent drainage which was drained. Wound cultures 01/02/2019 ESBL Kleb, MDR Ecoli and E raffinosus resistant to penicillin: On meropenam and vanc per ID. Consult Vascular surgery for central line placement, planned for diverting colostomy, family has agreed, Cardiology re-evaluated for surgery, input noted, high CV risk. Dr. Villela recommend [facility]re, 01/08/19, now ongoing to run till 02/16/19. Further debridement done 01/14/19. he is medically stable awaiting placement. case management working on placement. /Acute on chronic Anemia of AOCD: Continue epoetin, total of 8 units PRBC, follow cbc- no occult GI bleed noted. GI input noted, No retroperitoneal bleed noted. Although 150cc Of blood loss documented during debridement No further bleeding from sacral wound noted Dakins moistened kerlex packing started Pt is s/p x1 DDVAP /Chest pain, now resolved, medical management /Acute metabolic encephalopathy due to the above /Acute systolic exacerbation of CHF (congestive heart failure): treat via Ultrafiltration during HD /Afib with RVR: rate control only and optimize meds per Cardiology /ESRD needing dialysis: Nephology is managing, Continue hemo dialysis /Insulin dependent diabetes mellitus, A1c is 4.2: insulin was dc /Severe malnutrition with FTT: 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, cont oral diet, technology integration specialist input appreciated, PEG tube placed on 01/02/19 /Hypertension: Continue antihypertensives /h/o Peripheral neuropathy: Continue gabapentin /Elevated troponin, Secondary to end-stage renal disease, chf and afib, C ardiology input appreciated DVT prophylaxis On heparin and GI prophylaxis /Hyperkalemia Resolved Poor prognosis discussed with family member Mr Jennifer Mims. Per discussion with Surgery and as documented by them "Very poor prognosis for wound healing. I do not feel wound will ever heal due to extensive nature, poor nutrition, bedbound status, among other comorbidities. Recommend hospice." Family not accepting at this time. Ok to dc to NH when bed available. Would hold off on vac and continue dakins dressings to wound. May follow up in wound care center after dc. Discussed with case management. Still Awaiting placement Brief history: Patient is a 63-year-old -[place] man from [facility] with a plethora of co-morbidities including blindness, CVA, CHF, PPM/ICD, loop recorder since 2012 that is MRI compatible, IDDM type 2, sepsis left foot ulcer, afib, ESRD with complications on HD TTS, hypertension, AOCD and GERD who presented to [facility] with altered sensorium and decreased responsiveness. Decreased responsive and not eating at all for 2 days. Patient has failure to thrive, altered mentation and weight loss of 20 pounds since 12/08/2018. Hospitalist Physical Gen: Not in acute distress, obese,ill looking HEENT: Normocephalic, atraumatic Neck: supple, no JVD Heart: S1 and S2 reg, no murmurs, rubs or gallop Lungs: Clear, no crackles, no wheeze Abd: soft, non tender, non distended, normal BS, PEg tube Ext: Contracted, no clubbing, no cyanosis, Sacrum: sacral decub ulcer Neuro: Lethargic, Subjective Date of service: 01/28/19 Principal diagnosis: afib Interval history: Patient seen and examined. Medical records and medication list reviewed. No acute event overnight noted by the RN. Discussed plan of care at bedside with patient's RN and CM Discharge pending on placement. Objective - Constitutional Vitals: Vital Signs - 12hr 01/28/19 01/28/19 01/28/19 05:38 11:51 11:55 Temperature 97.4 F L Pulse Rate 76 10 L Respiratory 20 Rate Blood Pressure 119/68 139/71 O2 Sat by Pulse 99 Oximetry 01/28/19 12:00 Temperature 97.5 F L Pulse Rate 76 Respiratory 20 Rate Blood Pressure 139/71 O2 Sat by Pulse 100 Oximetry - Labs CBC & Chem 7: 01/27/19 08:40 01/28/19 12:37 Labs: Abnormal lab results 01/27/19 01/28/19 Range/Units 18:05 12:00 POC Glucose 138 H 115 H (70-105)
[2019-01-28] MEDS ORDERED: PANCREAZE DR 10,500 UNIT FEEDTUBE PRN (14:53)
[2019-01-28] MEDS ORDERED: SIMPLE SYRUP FEEDTUBE PRN ×2 (14:53)
[2019-01-28] MEDS ORDERED: SODIUM BICARBONATE FEEDTUBE PRN (14:53)
[2019-01-28] MEDS: MORPHINE IV PRN (19:15)
[2019-01-28] MEDS: NEURONTIN PO SCH (22:21)
[2019-01-29] MEDS: APRESOLINE PO SCH ×3 (06:30→22:17)
[2019-01-29] MEDS: HumuLIN R SUB-Q SCH ×6 (08:03→22:59)
--- NOTE | 2019-01-29 09:17 | Progress Note ---
Assessment and Plan Impression * End-stage renal disease on maintenance hemodialysis * Altered mental status * Sacral decubitus * Status post diverting colostomy * Hypokalemia * Failure to thrive * Hypophosphatemia * Malnutrition * Anemia secondary to ESRD * Hypomagnesemia Recommendations * Patient is scheduled for hemodialysis for today * Continue dialysis on TTS schedule for now * Serum potassium was 4.6 yesterday. Continue 2K bath for dialysis * Antibiotic therapy and local wound care as per primary team * Avoid nephrotoxins * Epogen with dialysis * Adjust diet and meds for ESRD state Subjective Date of service: 01/29/19 Principal diagnosis: afib Interval history: Patient is clinically about the same. Remains nonverbal. Tolerating PEG tube feeding Objective - Vital Signs Vital signs: Vital Signs - 12hr 01/28/19 01/28/19 01/28/19 22:19 22:21 22:41 Temperature 98.2 F Pulse Rate 84 84 101 H Respiratory 20 Rate Blood Pressure 133/85 133/85 140/74 Blood Pressure [Left] O2 Sat by Pulse 95 Oximetry 01/29/19 01/29/19 05:01 05:35 Temperature 98.2 F 98.2 F Pulse Rate 79 Respiratory 20 20 Rate Blood Pressure 123/68 Blood Pressure 123/68 [Left] O2 Sat by Pulse 97 Oximetry - General Appearance General appearance: well-developed, well-nourished, appears stated age EENT: ATNC, other (blind right eye) Neck: no JVD, no thyromegaly, no carotid bruit, supple, other (right IJ PermCath in place) Respiratory: Present: Clear to Ascultation Cardiology: regular, normal heart rate, S1S2, no murmurs Gastrointestinal: normoactive bowel sounds, other (PEG tube in place. Colostomy bag noted.) Integumentary: other (no edema) - Lab 01/27/19 08:40 01/28/19 12:37 Most recent lab results Calcium 9.3 mg/dL (8.4-10.2) 01/27/19 08:40 Phosphorus 2.90 mg/dL (2.5-4.5) D 01/05/19 04:56 Magnesium 2.00 mg/dL (1.7-2.3) 01/05/19 04:56 Medications & Allergies - Medications Allergies/Adverse Reactions: Allergies haloperidol [From Haldol] Adverse Reaction (Verified 03/13/18 12:10) Unknown haloperidol lactate [From Haldol] Adverse Reaction (Verified 03/13/18 12:10) Unknown Home Medications: Home Medications Medication Instructions Recorded Confirmed Last Taken Type risperiDONE [RisperDAL] 1 mg PO QAM 03/13/18 12/27/18 Unknown History Sertraline [Zoloft] 100 mg PO QDAY 08/26/18 12/27/18 Unknown History risperiDONE [RisperDAL] 0.5 mg PO HS 08/26/18 12/27/18 Unknown History Polyethylene Glycol 3350 [Miralax 17 gm PO QDAY #30 packet 11/05/18 12/27/18 Unknown Rx 3350] Aspirin EC 81 mg PO DAILY #30 11/19/18 12/27/18 Unknown Rx Docusate Sodium [Colace CAP] 100 mg PO BID #60 11/19/18 12/27/18 Unknown Rx Folic Acid [Folvite] 1 mg PO DAILY #30 tab 11/19/18 12/27/18 Unknown Rx Famotidine [Pepcid] 20 mg PO DAILY tablet 12/08/18 12/27/18 Unknown Rx Gabapentin [Neurontin] 100 mg PO QHS capsule 12/08/18 12/27/18 Unknown Rx Metoprolol [Lopressor TAB] 50 mg PO BID 30 Days tablet 12/08/18 12/27/18 Unknown Rx Sevelamer Carbonate [Renvela] 800 mg PO TIDWM tablet 12/08/18 12/27/18 Unknown Rx hydrALAZINE [Apresoline TAB] 100 mg PO Q8HR #120 tablet 12/08/18 12/27/18 Unknown Rx Acetaminophen [Acetaminophen TAB] 650 mg PO Q12H PRN 12/15/18 12/27/18 Unknown History Amino Acids/Protein Hydrolys 30 ml PO BID 12/15/18 12/27/18 Unknown History [Pro-Stat Sugar Free Liquid] Glucagon,Human Recombinant 1 mg IJ Q15MIN PRN 12/15/18 12/27/18 Unknown History [Glucagon Emergency Kit] Insulin Aspart [NovoLOG 100 See Protocol SQ QWEEK 12/15/18 12/27/18 Unknown History UNITS/ML VIAL] Epoetin Solitario 10,000 Unit [Procrit] 10,000 unit IV UMA PRN vial 12/18/18 12/27/18 Unknown Rx Lispro Insulin [HumaLOG] 0 unit SUB-Q ACHS units 12/18/18 12/27/18 Unknown Rx risperiDONE [RisperDAL] 0.5 mg PO QHS tablet 12/18/18 12/27/18 Unknown Rx Meropenem [Merrem] 1,000 mg IV Q24HR vial 01/16/19 Unknown Rx Active Medications: Generic Name Dose Route Start Last Admin Trade Name Freq PRN Reason Stop Dose Admin Lipase/Protease/Amylase 1 each 01/28/19 14:[address] 10,500 Unit FEEDTUBE PRN PRN For Clogged Feeding Tube Aspirin 81 mg 12/27/18 10:00 01/28/19 11:53 Halfprin Ec PO 81 mg DAILY SANCHEZ Administration Diltiazem HCl 60 mg 01/22/19 10:00 01/28/19 22:19 Cardizem PO 60 mg BID SANCHEZ Administration Diphenhydramine HCl 25 mg 01/26/19 05:54 Benadryl PO Q6H PRN Itching Epoetin Solitario 20,000 unit 01/05/19 11:03 01/24/19 12:49 Procrit IV 20,000 unit UMA PRN Administration hemodialysis Famotidine 20 mg 12/27/18 10:00 01/28/19 11:52 Pepcid PO 20 mg DAILY SANCHEZ Administration Folic Acid 1 mg 12/27/18 10:00 01/28/19 11:53 Folvite PO 1 mg DAILY SANCHEZ Administration Gabapentin 100 mg 12/26/18 22:00 01/28/19 22:21 Neurontin PO 100 mg QHS SANCHEZ Administration Heparin Sodium (Porcine) 5,000 unit 01/23/19 22:00 01/28/19 22:45 Heparin SUB-Q 5,000 unit Q12HR SANCHEZ Administration Hydralazine HCl 100 mg 12/26/18 22:00 01/29/19 06:30 Apresoline PO 100 mg Q8HR SANCHEZ Administration Meropenem 1,000 mg/ Sodium 100 mls @ 100 mls/hr 01/05/19 11:00 01/28/19 11:50 Chloride IV 02/16/19 10:59 100 mls/hr Q24HR SANCHEZ Administration Vancomycin HCl 1 gm in 250 mls @ 167.007 mls/hr 01/06/19 20:00 01/27/19 23:35 Vancomycin/Ns 1 Gm/250 Ml IV 02/16/19 19:59 167.007 mls/hr TuThSa SANCHEZ Administration Sodium Chloride 100 mls @ 999 mls/hr 01/19/19 09:29 Nacl 0.9% IV UMA PRN Hypotension Insulin Human Regular 0 units 01/14/19 00:00 01/29/19 08:03 Humulin R SUB-Q Not Given Q6HR [facility] Protocol Metoprolol Tartrate 100 mg 12/31/18 22:00 01/28/19 22:21 Lopressor PO 100 mg BID SANCHEZ Administration Morphine Sulfate 2 mg 01/21/19 04:08 01/28/19 19:15 Morphine IV 2 mg Q4H PRN Administration Pain, Moderate (4-6) Nitroglycerin 0.4 mg 01/21/19 04:05 01/21/19 04:15 Nitrostat SL 0.4 mg .Q5MIN PRN Administration Chest Pain Oxycodone/Acetaminophen 1 tab 01/05/19 08:30 01/27/19 13:24 Percocet 5/325 PO 1 tab Q6H PRN Administration Pain, Moderate (4-6) Risperidone 0.5 mg 12/26/18 22:00 01/28/19 22:22 Risperdal PO 0.5 mg QHS SANCHEZ Administration Risperidone 1 mg 12/27/18 10:00 01/28/19 11:53 Risperdal PO 1 mg QAM SANCHEZ Administration Sertraline HCl 100 mg 12/27/18 10:00 01/28/19 11:51 Zoloft PO 100 mg QDAY SANCHEZ Administration Simple Syrup 15 ml 01/28/19 14:53 Simple Syrup FEEDTUBE PRN PRN Hypoglycemia Simple Syrup 30 ml 01/28/19 14:53 Simple Syrup FEEDTUBE PRN PRN Hypoglycemia Sodium Bicarbonate 325 mg 01/28/19 14:53 Sodium Bicarbonate FEEDTUBE PRN PRN For Clogged Feeding Tube Sodium Chloride 10 ml 12/26/18 22:00 01/28/19 22:22 Sodium Chloride Flush Syringe 10 Ml IV 10 ml BID SANCHEZ Administration Sodium Hypochlorite 1 applic 01/19/19 10:00 01/28/19 11:54 Dakin's Half Strength TP 0.25 applicatio QDAY SANCHEZ Administration
[2019-01-29] MEDS: MORPHINE IV PRN (10:03)
[2019-01-29] MEDS: SODIUM CHLORIDE FLUSH SYRINGE 10 ML IV SCH ×2 (12:04→22:27)
[2019-01-29] MEDS: LOPRESSOR PO SCH ×2 (12:06→22:18)
[2019-01-29] MEDS: PEPCID PO SCH (12:06)
[2019-01-29] MEDS: CARDIZEM PO SCH ×2 (12:06→22:17)
[2019-01-29] MEDS: HEPARIN SUB-Q SCH ×2 (12:07→22:19)
[2019-01-29] MEDS: ZOLOFT PO SCH (12:07)
[2019-01-29] MEDS: RisperDAL PO SCH ×2 (12:07→22:18)
[2019-01-29] MEDS: FOLVITE PO SCH (12:15)
[2019-01-29] MEDS: HALFPRIN EC PO SCH (12:16)
[2019-01-29] MEDS: PROCRIT IV PRN (12:41)
[2019-01-29] MEDS: DAKIN'S HALF STRENGTH TP SCH (15:14)
[2019-01-29] MEDS: MERREM 1,000 MG in NACL 0.9% 100 ML IV SCH (15:14)
--- NOTE | 2019-01-29 15:18 | Progress Note ---
Assessment and Plan /Severe Sepsis due to Necrotizing Unstagable sacral decubitus ulcer with ostemomylitis s/p OR on 01/01/2019 for open excisional debridement of necrotic and infected sacral wound noted a large amount of necrotic tissue debrided and two abscess cavities at the caudad portion of the wound with a copious amount of purulent drainage which was drained. Wound cultures 01/02/2019 ESBL Kleb, MDR Ecoli and E raffinosus resistant to penicillin: On meropenam and vanc per ID. Consult Vascular surgery for central line placement, planned for diverting colostomy, family has agreed, Cardiology re-evaluated for surgery, input noted, high CV risk. Dr. Villela recommend Merem, 01/08/19, now ongoing to run till 02/16/19. Further debridement done 01/14/19. he is medically stable awaiting placement. case management working on placement. /Acute on chronic Anemia of AOCD: Continue epoetin, total of 8 units PRBC, follow cbc- no occult GI bleed noted. GI input noted, No retroperitoneal bleed noted. Although 150cc Of blood loss documented during debridement, No further bleeding from sacral wound noted Dakins moistened kerlex packing started Pt is s/p x1 DDVAP /Chest pain, now resolved, medical management /Acute metabolic encephalopathy due to the above /Acute systolic exacerbation of CHF (congestive heart failure): treat via Ultrafiltration during HD /Afib with RVR: rate control only and optimize meds per Cardiology /ESRD needing dialysis: Nephology is managing, Continue hemo dialysis /Insulin dependent diabetes mellitus, A1c is 4.2: insulin was dc /Severe malnutrition with FTT: 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, cont oral diet, general farm hand input appreciated, PEG tube placed on 01/02/19 /Hypertension: Continue antihypertensives /h/o Peripheral neuropathy: Continue gabapentin /Elevated troponin, Secondary to end-stage renal disease, chf and afib, Cardiology input appreciated DVT prophylaxis On heparin and GI prophylaxis /Hyperkalemia Resolved Poor prognosis discussed with family member Mr Jennifer Mims. Per discussion with Surgery and as documented by them "Very poor prognosis for wound healing. I do not feel wound will ever heal due to extensive nature, poor nutrition, bedbound status, among other comorbidities. Recommend hospice." Family not accepting at this time. Ok to dc to NH when bed available. Would hold off on vac and continue dakins dressings to wound. May follow up in wound care center after dc. Discussed with case management. Still Awaiting placement Brief history: Patient is a 63-year-old -Citizen Of [place] man from [facility] with a plethora of co-morbidities including blindness, CVA, CHF, PPM/ICD, loop recorder since 2012 that is MRI compatible, IDDM type 2, sepsis left foot ulcer, afib, ESRD with complications on HD TTS, hypertension, AOCD and GERD who presented to [facility] with altered sensorium and decreased responsiveness. Decreased responsive and not eating at all for 2 days. Patient has failure to thrive, altered mentation and weight loss of 20 pounds since 12/08/2018. Hospitalist Physical Gen: Not in acute distress, obese,ill looking HEENT: Normocephalic, atraumatic Neck: supple, no JVD Heart: S1 and S2 reg, no murmurs, rubs or gallop Lungs: Clear, no crackles, no wheeze Abd: soft, non tender, non distended, normal BS, PEg tube Ext: Contracted, no clubbing, no cyanosis, Sacrum: sacral decub ulcer Neuro: Lethargic, Subjective Date of service: 01/29/19 Principal diagnosis: afib Interval history: Patient seen and examined. Medical records and medication list reviewed. No acute event overnight noted by the RN. Discussed plan of care at bedside with patient's RN and CM Discharge pending on placement. Objective - Constitutional Vitals: Vital Signs - 12hr 01/29/19 01/29/19 01/29/19 05:01 05:35 09:00 Temperature 98.2 F 98.2 F 98.2 F Pulse Rate 79 80 Respiratory 20 20 16 Rate Blood Pressure 123/68 135/62 Blood Pressure 123/68 [Left] O2 Sat by Pulse 97 Oximetry 01/29/19 01/29/19 01/29/19 09:15 09:30 09:45 Temperature Pulse Rate 80 81 90 Respiratory Rate Blood Pressure 135/62 135/70 140/70 Blood Pressure [Left] O2 Sat by Pulse Oximetry 01/29/19 01/29/19 01/29/19 10:00 10:15 10:29 Temperature Pulse Rate 87 95 H 93 H Respiratory Rate Blood Pressure 129/64 133/73 136/66 Blood Pressure [Left] O2 Sat by Pulse Oximetry 01/29/19 01/29/19 01/29/19 10:45 11:00 11:15 Temperature Pulse Rate 95 H 78 93 H Respiratory Rate Blood Pressure 132/70 139/76 147/74 Blood Pressure [Left] O2 Sat by Pulse Oximetry 01/29/19 01/29/19 01/29/19 11:45 12:00 12:15 Temperature Pulse Rate 84 749 H 78 Respiratory Rate Blood Pressure 144/64 135/71 130/66 Blood Pressure [Left] O2 Sat by Pulse Oximetry 01/29/19 01/29/19 01/29/19 12:30 12:45 13:00 Temperature Pulse Rate 75 65 70 Respiratory Rate Blood Pressure 126/69 120/69 128/70 Blood Pressure [Left] O2 Sat by Pulse Oximetry 01/29/19 01/29/19 13:15 13:22 Temperature 98.3 F Pulse Rate 77 78 Respiratory 16 Rate Blood Pressure 131/71 130/73 Blood Pressure [Left] O2 Sat by Pulse Oximetry - Labs CBC & Chem 7: 01/27/19 08:40 01/28/19 12:37 Labs: Abnormal lab results 01/28/19 01/28/19 01/29/19 Range/Units 16:46 22:46 11:19 POC Glucose 124 H 125 H 150 H (70-105)
[2019-01-29] MEDS: PERCOCET 5/325 PO PRN ×2 (16:52→22:24)
[2019-01-29] MEDS: VANCOMYCIN/NS 1 GM/250 ML 1 GM/250 ML BAG IV SCH (22:17)
[2019-01-29] MEDS: NEURONTIN PO SCH (22:17)
[2019-01-29] MEDS: BENADRYL PO PRN (22:18)
[2019-01-30] MEDS: PERCOCET 5/325 PO PRN (05:51)
[2019-01-30] MEDS: APRESOLINE PO SCH ×3 (05:53→21:18)
[2019-01-30] MEDS: HumuLIN R SUB-Q SCH ×3 (06:00→18:50)
--- NOTE | 2019-01-30 09:06 | Progress Note ---
Assessment and Plan Impression * End-stage renal disease on maintenance hemodialysis * Altered mental status * Sacral decubitus * Status post diverting colostomy * Hypokalemia * Failure to thrive * Hypophosphatemia * Malnutrition * Anemia secondary to ESRD * Hypomagnesemia Recommendations * Patient had uneventful hemodialysis yesterday * Continue dialysis on TTS schedule for now * Continue 2K bath for dialysis * Antibiotic therapy and local wound care as per primary team * Avoid nephrotoxins * Epogen with dialysis * Adjust diet and meds for ESRD state * Awaiting placement Subjective Date of service: 01/30/19 Principal diagnosis: afib Interval history: Patient is clinically about the same. Remains nonverbal. Tolerating PEG tube feeding Objective - Vital Signs Vital signs: Vital Signs - 12hr 01/29/19 01/29/19 01/29/19 21:54 22:17 22:18 Temperature 98.3 F Pulse Rate 105 H 110 H 110 H Respiratory 18 Rate Blood Pressure 145/80 145/80 145/80 O2 Sat by Pulse 96 Oximetry 01/29/19 01/30/19 01/30/19 22:24 04:52 05:51 Temperature 98.4 F Pulse Rate 104 H Respiratory 20 18 20 Rate Blood Pressure 124/70 O2 Sat by Pulse 100 Oximetry - General Appearance General appearance: well-developed, well-nourished, appears stated age EENT: mucous membranes moist, other (blind right eye) Neck: no JVD, no thyromegaly, no carotid bruit, supple, other (right IJ PermCath in place) Respiratory: Present: Clear to Ascultation Cardiology: regular, normal heart rate, S1S2, no murmurs Gastrointestinal: normoactive bowel sounds, other (PICC tube in place. Colostomy bag noted.) - Lab 01/27/19 08:40 01/28/19 12:37 Most recent lab results Calcium 9.3 mg/dL (8.4-10.2) 01/27/19 08:40 Phosphorus 2.90 mg/dL (2.5-4.5) D 01/05/19 04:56 Magnesium 2.00 mg/dL (1.7-2.3) 01/05/19 04:56 Medications & Allergies - Medications Allergies/Adverse Reactions: Allergies haloperidol [From Haldol] Adverse Reaction (Verified 03/13/18 12:10) Unknown haloperidol lactate [From Haldol] Adverse Reaction (Verified 03/13/18 12:10) Unknown Home Medications: Home Medications Medication Instructions Recorded Confirmed Last Taken Type risperiDONE [RisperDAL] 1 mg PO QAM 03/13/18 12/27/18 Unknown History Sertraline [Zoloft] 100 mg PO QDAY 08/26/18 12/27/18 Unknown History risperiDONE [RisperDAL] 0.5 mg PO HS 08/26/18 12/27/18 Unknown History Polyethylene Glycol 3350 [Miralax 17 gm PO QDAY #30 packet 11/05/18 12/27/18 Unknown Rx 3350] Aspirin EC 81 mg PO DAILY #30 11/19/18 12/27/18 Unknown Rx Docusate Sodium [Colace CAP] 100 mg PO BID #60 11/19/18 12/27/18 Unknown Rx Folic Acid [Folvite] 1 mg PO DAILY #30 tab 11/19/18 12/27/18 Unknown Rx Famotidine [Pepcid] 20 mg PO DAILY tablet 12/08/18 12/27/18 Unknown Rx Gabapentin [Neurontin] 100 mg PO QHS capsule 12/08/18 12/27/18 Unknown Rx Metoprolol [Lopressor TAB] 50 mg PO BID 30 Days tablet 12/08/18 12/27/18 Unknown Rx Sevelamer Carbonate [Renvela] 800 mg PO TIDWM tablet 12/08/18 12/27/18 Unknown Rx hydrALAZINE [Apresoline TAB] 100 mg PO Q8HR #120 tablet 12/08/18 12/27/18 Unknown Rx Acetaminophen [Acetaminophen TAB] 650 mg PO Q12H PRN 12/15/18 12/27/18 Unknown History Amino Acids/Protein Hydrolys 30 ml PO BID 12/15/18 12/27/18 Unknown History [Pro-Stat Sugar Free Liquid] Glucagon,Human Recombinant 1 mg IJ Q15MIN PRN 12/15/18 12/27/18 Unknown History [Glucagon Emergency Kit] Insulin Aspart [NovoLOG 100 See Protocol SQ QWEEK 12/15/18 12/27/18 Unknown History UNITS/ML VIAL] Epoetin Solitario 10,000 Unit [Procrit] 10,000 unit IV UMA PRN vial 12/18/18 12/27/18 Unknown Rx Lispro Insulin [HumaLOG] 0 unit SUB-Q ACHS units 12/18/18 12/27/18 Unknown Rx risperiDONE [RisperDAL] 0.5 mg PO QHS tablet 12/18/18 12/27/18 Unknown Rx Meropenem [Merrem] 1,000 mg IV Q24HR vial 01/16/19 Unknown Rx Active Medications: Generic Name Dose Route Start Last Admin Trade Name Freq PRN Reason Stop Dose Admin Lipase/Protease/Amylase 1 each 01/28/19 14:53 Pancreaze 10,500 Unit FEEDTUBE PRN PRN For Clogged Feeding Tube Aspirin 81 mg 12/27/18 10:00 01/29/19 12:16 Halfprin Ec PO 81 mg DAILY SANCHEZ Administration Diltiazem HCl 60 mg 01/22/19 10:00 01/29/19 22:17 Cardizem PO 60 mg BID SANCHEZ Administration Diphenhydramine HCl 25 mg 01/26/19 05:54 01/29/19 22:18 Benadryl PO 25 mg Q6H PRN Administration Itching Epoetin Solitario 20,000 unit 01/05/19 11:03 01/29/19 12:41 Procrit IV 20,000 unit UMA PRN Administration hemodialysis Famotidine 20 mg 12/27/18 10:00 01/29/19 12:06 Pepcid PO 20 mg DAILY SANCHEZ Administration Folic Acid 1 mg 12/27/18 10:00 01/29/19 12:15 Folvite PO 1 mg DAILY SANCHEZ Administration Gabapentin 100 mg 12/26/18 22:00 01/29/19 22:17 Neurontin PO 100 mg QHS SANCHEZ Administration Heparin Sodium (Porcine) 5,000 unit 01/23/19 22:00 01/29/19 22:19 Heparin SUB-Q 5,000 unit Q12HR SANCHEZ Administration Hydralazine HCl 100 mg 12/26/18 22:00 01/30/19 05:53 Apresoline PO 100 mg Q8HR SANCHEZ Administration Meropenem 1,000 mg/ Sodium 100 mls @ 100 mls/hr 01/05/19 11:00 01/29/19 15:14 Chloride IV 02/16/19 10:59 100 mls/hr Q24HR SANCHEZ Administration Vancomycin HCl 1 gm in 250 mls @ 167.007 mls/hr 01/06/19 20:00 01/29/19 22:17 Vancomycin/Ns 1 Gm/250 Ml IV 02/16/19 19:59 167.007 mls/hr TuThSa SANCHEZ Administration Sodium Chloride 100 mls @ 999 mls/hr 01/19/19 09:29 Nacl 0.9% IV UMA PRN Hypotension Insulin Human Regular 0 units 01/14/19 00:00 01/30/19 06:00 Humulin R SUB-Q Not Given Q6HR [facility] Protocol Metoprolol Tartrate 100 mg 12/31/18 22:00 01/29/19 22:18 Lopressor PO 100 mg BID SANCHEZ Administration Morphine Sulfate 2 mg 01/21/19 04:08 01/29/19 10:03 Morphine IV 2 mg Q4H PRN Administration Pain, Moderate (4-6) Nitroglycerin 0.4 mg 01/21/19 04:05 01/21/19 04:15 Nitrostat SL 0.4 mg .Q5MIN PRN Administration Chest Pain Oxycodone/Acetaminophen 1 tab 01/05/19 08:30 01/30/19 05:51 Percocet 5/325 PO 1 tab Q6H PRN Administration Pain, Moderate (4-6) Risperidone 0.5 mg 12/26/18 22:00 01/29/19 22:18 Risperdal PO 0.5 mg QHS SANCHEZ Administration Risperidone 1 mg 12/27/18 10:00 01/29/19 12:07 Risperdal PO 1 mg QAM SANCHEZ Administration Sertraline HCl 100 mg 12/27/18 10:00 01/29/19 12:07 Zoloft PO 100 mg QDAY SANCHEZ Administration Simple Syrup 15 ml 01/28/19 14:53 Simple Syrup FEEDTUBE PRN PRN Hypoglycemia Simple Syrup 30 ml 01/28/19 14:53 Simple Syrup FEEDTUBE PRN PRN Hypoglycemia Sodium Bicarbonate 325 mg 01/28/19 14:53 Sodium Bicarbonate FEEDTUBE PRN PRN For Clogged Feeding Tube Sodium Chloride 10 ml 12/26/18 22:00 01/29/19 22:27 Sodium Chloride Flush Syringe 10 Ml IV 10 ml BID SANCHEZ Administration Sodium Hypochlorite 1 applic 01/19/19 10:00 01/29/19 15:14 Dakin's Half Strength TP 1 applicatio QDAY SANCHEZ Administration
[2019-01-30] MEDS: RisperDAL PO SCH ×4 (10:00→21:19)
[2019-01-30] MEDS: ZOLOFT PO SCH ×2 (10:33→10:40)
[2019-01-30] MEDS: HALFPRIN EC PO SCH (10:33)
[2019-01-30] MEDS: PEPCID PO SCH (10:33)
[2019-01-30] MEDS: HEPARIN SUB-Q SCH ×2 (10:33→21:18)
[2019-01-30] MEDS: CARDIZEM PO SCH ×2 (10:33→21:18)
[2019-01-30] MEDS: SODIUM CHLORIDE FLUSH SYRINGE 10 ML IV SCH ×2 (10:34→21:19)
[2019-01-30] MEDS: FOLVITE PO SCH (10:34)
[2019-01-30] MEDS: LOPRESSOR PO SCH ×2 (10:35→21:18)
[2019-01-30] MEDS: DAKIN'S HALF STRENGTH TP SCH (10:35)
[2019-01-30] MEDS: MERREM 1,000 MG in NACL 0.9% 100 ML IV SCH (13:12)
--- NOTE | 2019-01-30 15:10 | Progress Note ---
Assessment and Plan /Severe Sepsis due to Necrotizing Unstagable sacral decubitus ulcer with ostemomylitis s/p OR on 01/01/2019 for open excisional debridement of necrotic and infected sacral wound noted a large amount of necrotic tissue debrided and two abscess cavities at the caudad portion of the wound with a copious amount of purulent drainage which was drained. Wound cultures 01/02/2019 ESBL Kleb, MDR Ecoli and E raffinosus resistant to penicillin: On meropenam and vanc per ID. Consult Vascular surgery for central line placement, planned for diverting colostomy, family has agreed, Cardiology re-evaluated for surgery, input noted, high CV risk. Dr. Villela recommend Merem, 01/08/19, now ongoing to run till 02/16/19. Further debridement done 01/14/19. he is medically stable awaiting placement. case management working on placement. /Acute on chronic Anemia of AOCD: Continue epoetin, total of 8 units PRBC, follow cbc- no occult GI bleed noted. GI input noted, No retroperitoneal bleed noted. Although 150cc Of blood loss documented during debridement, No further bleeding from sacral wound noted Dakins moistened kerlex packing started Pt is s/p x1 DDVAP /Chest pain, now resolved, medical management /Acute metabolic encephalopathy due to the above /Acute systolic exacerbation of CHF (congestive heart failure): treat via Ultrafiltration during HD /Afib with RVR: rate control only and optimize meds per Cardiology /ESRD needing dialysis: Nephology is managing, Continue hemo dialysis /Insulin dependent diabetes mellitus, A1c is 4.2: insulin was dc /Severe malnutrition with FTT: 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, cont oral diet, cyber security consultant input appreciated, PEG tube placed on 01/02/19 /Hypertension: Continue antihypertensives /h/o Peripheral neuropathy: Continue gabapentin /Elevated troponin, Secondary to end-stage renal disease, chf and afib, Cardiology input appreciated DVT prophylaxis On heparin and GI prophylaxis /Hyperkalemia Resolved Poor prognosis discussed with family member Mr Jennifer Mims. Per discussion with Surgery and as documented by them "Very poor prognosis for wound healing. I do not feel wound will ever heal due to extensive nature, poor nutrition, bedbound status, among other comorbidities. Recommend hospice." Family not accepting at this time. Ok to dc to NH when bed available. Would hold off on vac and continue dakins dressings to wound. May follow up in wound care center after dc. Discussed with case management. Still Awaiting placement Brief history: Patient is a 63-year-old -Citizen Of [place] man from [facility] with a plethora of co-morbidities including blindness, CVA, CHF, PPM/ICD, loop recorder since 2012 that is MRI compatible, IDDM type 2, sepsis left foot ulcer, afib, ESRD with complications on HD TTS, hypertension, AOCD and GERD who presented to [facility] with altered sensorium and decreased responsiveness. Decreased responsive and not eating at all for 2 days. Patient has failure to thrive, altered mentation and weight loss of 20 pounds since 12/08/2018. Hospitalist Physical Gen: Not in acute distress, obese,ill looking HEENT: Normocephalic, atraumatic Neck: supple, no JVD Heart: S1 and S2 reg, no murmurs, rubs or gallop Lungs: Clear, no crackles, no wheeze Abd: soft, non tender, non distended, normal BS, PEg tube Ext: Contracted, no clubbing, no cyanosis, Sacrum: sacral decub ulcer Neuro: Lethargic but answers to simple question, Subjective Date of service: 01/30/19 Principal diagnosis: afib Interval history: Patient seen and examined. Medical records and medication list reviewed. No acute event overnight noted by the RN. Discussed plan of care at bedside with patient's RN and CM Discharge pending on placement. Objective - Constitutional Vitals: Vital Signs - 12hr 01/30/19 01/30/19 01/30/19 04:52 05:51 10:33 Temperature 98.4 F Pulse Rate 104 H 94 H Respiratory 18 20 Rate Blood Pressure 124/70 124/75 Blood Pressure [Right] O2 Sat by Pulse 100 Oximetry 01/30/19 01/30/19 01/30/19 10:35 12:06 13:37 Temperature 98.0 F Pulse Rate 76 76 78 Respiratory 18 16 Rate Blood Pressure 117/74 117/74 Blood Pressure [Right] O2 Sat by Pulse 100 100 Oximetry 01/30/19 13:38 Temperature 98.1 F Pulse Rate Respiratory 16 Rate Blood Pressure Blood Pressure 125/72 [Right] O2 Sat by Pulse 100 Oximetry - Labs CBC & Chem 7: 01/30/19 14:49 01/30/19 14:49 Labs: Abnormal lab results 01/29/19 01/30/19 01/30/19 Range/Units 17:38 05:57 12:14 POC Glucose 106 H 137 H 109 H (70-105)
[2019-01-30 16:54] LABS: Hematocrit 26.7 % (35.5-45.6); Hemoglobin 8.4 gm/dl (11.8-15.2); Mean Corpuscular HGB Conc 32 % (32-34); Mean Corpuscular Volume 90 fl (84-94); Platelet Count 314 K/mm3 (140-440); Red Blood Count 2.95 M/mm3 (3.65-5.03); Red Cell Distribution Width 18.2 % (13.2-15.2)
[2019-01-30 17:25] LABS: Calcium 9.5 mg/dL (8.4-10.2)
[2019-01-30] MEDS: NEURONTIN PO SCH (21:19)
[2019-01-31] MEDS: HumuLIN R SUB-Q SCH ×4 (01:39→18:00)
[2019-01-31] MEDS: APRESOLINE PO SCH ×3 (05:17→21:02)
[2019-01-31] MEDS: PROCRIT IV PRN (10:01)
[2019-01-31] MEDS: MORPHINE IV PRN (10:29)
--- NOTE | 2019-01-31 10:31 | Progress Note ---
Assessment and Plan /Severe Sepsis due to Necrotizing Unstagable sacral decubitus ulcer with ostemomylitis s/p OR on 01/01/2019 for open excisional debridement of necrotic and infected sacral wound noted a large amount of necrotic tissue debrided and two abscess cavities at the caudad portion of the wound with a copious amount of purulent drainage which was drained. Wound cultures 01/02/2019 ESBL Kleb, MDR Ecoli and E raffinosus resistant to penicillin: On meropenam and vanc per ID. Consult Vascular surgery for central line placement, planned for diverting colostomy, family has agreed, Cardiology re-evaluated for surgery, input noted, high CV risk. Dr. Villela recommend Merem, 01/08/19, now ongoing to run till 02/16/19. Further debridement done 01/14/19. he is medically stable awaiting placement. case management working on placement. /Acute on chronic Anemia of AOCD: Continue epoetin, total of 8 units PRBC, follow cbc- no occult GI bleed noted. GI input noted, No retroperitoneal bleed noted. Although 150cc Of blood loss documented during debridement, No further bleeding from sacral wound noted Dakins moistened kerlex packing started Pt is s/p x1 DDVAP /Chest pain, now resolved, medical management /Acute metabolic encephalopathy due to the above /Acute systolic exacerbation of CHF (congestive heart failure): treat via Ultrafiltration during HD /Afib with RVR: rate control only and optimize meds per Cardiology /ESRD needing dialysis: Nephology is managing, Continue hemo dialysis /Insulin dependent diabetes mellitus, A1c is 4.2: insulin was dc /Severe malnutrition with FTT: 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, cont oral diet, inspector aide input appreciated, PEG tube placed on 01/02/19 /Hypertension: Continue antihypertensives /h/o Peripheral neuropathy: Continue gabapentin /Elevated troponin, Secondary to end-stage renal disease, chf and afib, Cardiology input appreciated DVT prophylaxis On heparin and GI prophylaxis /Hyperkalemia Resolved Poor prognosis discussed with family member Mr Jennifer Mims. Per discussion with Surgery and as documented by them "Very poor prognosis for wound healing. I do not feel wound will ever heal due to extensive nature, poor nutrition, bedbound status, among other comorbidities. Recommend hospice." Family not accepting at this time. Ok to dc to NH when bed available. Would hold off on vac and continue dakins dressings to wound. May follow up in wound care center after dc. Discussed with case management. Still Awaiting placement Brief history: Patient is a 63-year-old -[place] man from [facility] with a plethora of co-morbidities including blindness, CVA, CHF, PPM/ICD, loop recorder since 2012 that is MRI compatible, IDDM type 2, sepsis left foot ulcer, afib, ESRD with complications on HD TTS, hypertension, AOCD and GERD who presented to [facility] with altered sensorium and decreased responsiveness. Decreased responsive and not eating at all for 2 days. Patient has failure to thrive, altered mentation and weight loss of 20 pounds since 12/08/2018. Hospitalist Physical Gen: Not in acute distress, obese,ill looking HEENT: Normocephalic, atraumatic Neck: supple, no JVD Heart: S1 and S2 reg, no murmurs, rubs or gallop Lungs: Clear, no crackles, no wheeze Abd: soft, non tender, non distended, normal BS, PEg tube Ext: Contracted, no clubbing, no cyanosis, Sacrum: sacral decub ulcer Neuro: Lethargic but answers to simple question, Subjective Date of service: 01/31/19 Principal diagnosis: afib Interval history: Patient seen and examined. Medical records and medication list reviewed. No acute event overnight noted by the RN. Discussed plan of care at bedside with patient's RN and CM Discharge pending on placement. Objective - Constitutional Vitals: Vital Signs - 12hr 01/31/19 01/31/19 01/31/19 04:31 08:15 08:30 Temperature 97.4 F L 97.4 F L Pulse Rate 79 87 87 Respiratory 18 15 Rate Blood Pressure 146/77 143/82 143/82 O2 Sat by Pulse 100 Oximetry 01/31/19 01/31/19 01/31/19 08:45 09:00 09:15 Temperature Pulse Rate 87 88 96 H Respiratory Rate Blood Pressure 140/83 156/75 154/62 O2 Sat by Pulse Oximetry 01/31/19 01/31/19 01/31/19 09:30 09:45 10:00 Temperature Pulse Rate 90 89 87 Respiratory Rate Blood Pressure 163/82 166/65 166/87 O2 Sat by Pulse Oximetry 01/31/19 10:15 Temperature Pulse Rate 90 Respiratory Rate Blood Pressure 170/84 O2 Sat by Pulse Oximetry - Labs CBC & Chem 7: 01/30/19 14:49 01/30/19 14:49 Labs: Abnormal lab results 01/30/19 01/30/19 01/30/19 Range/Units 12:14 14:49 14:49 RBC 2.95 L (3.65-5.03) M/mm3 Hgb 8.4 L (11.8-15.2) gm/dl Hct 26.7 L (35.5-45.6) % RDW 18.2 H (13.2-15.2) % Carbon Dioxide 33 H (22-30) mmol/L BUN 22 H (9-20) mg/dL Creatinine 2.1 H (0.8-1.5) mg/dL Glucose 107 H (75-100) mg/dL POC Glucose 109 H (70-105) 01/31/19 01/31/19 Range/Units 00:13 06:16 RBC (3.65-5.03) M/mm3 Hgb (11.8-15.2) gm/dl Hct (35.5-45.6) % RDW (13.2-15.2) % Carbon Dioxide (22-30) mmol/L BUN (9-20) mg/dL Creatinine (0.8-1.5) mg/dL Glucose (75-100) mg/dL POC Glucose 111 H 106 H (70-105)
--- NOTE | 2019-01-31 14:33 | Progress Note ---
Assessment and Plan - Patient Problems (1) ESRD (end stage renal disease) Current Visit: Yes Status: Acute Plan to address problem: END-STAGE RENAL DISEASE. DIALYSIS ACCESS RIGHT tunnel dialysis catheter continue hemodialysis Saturday, , Saturday (2) CHF (congestive heart failure) Current Visit: Yes Status: Acute Qualifiers: Heart failure type: unspecified Heart failure chronicity: acute on chronic Qualified Code(s): I50.9 - Heart failure, unspecified Plan to address problem: Chronic Congestive heart failure: continue current medications. (3) Anemia in ESRD (end-stage renal disease) Current Visit: Yes Status: Chronic Plan to address problem: moderate Anemia due to chronic kidney disease Hb: 8.4g/dl continue epogen [id number] TTS monitor cbc (4) Decubitus ulcer of sacral region, unstageable Current Visit: Yes Status: Acute Plan to address problem: Large decubitus ulcer wound cultures with polymicrobial growth s/p diverting colostomy continue antibiotics with meropenem. Subjective Principal diagnosis: afib Interval history: 63 year old with medical history significant for HTN, dementia, ESRD on hemodialysis TTS via a Right IJ Perm cath . with infected decubitus ulcers . Patient seen today on dialysis at 12:20pm. much more awake , in good spirits edema improved Objective - Vital Signs Vital signs: Vital Signs - 12hr 01/31/19 01/31/19 01/31/19 04:31 08:15 08:30 Temperature 97.4 F L 97.4 F L Pulse Rate 79 87 87 Respiratory 18 15 Rate Blood Pressure 146/77 143/82 143/82 O2 Sat by Pulse 100 Oximetry 01/31/19 01/31/19 01/31/19 08:45 09:00 09:15 Temperature Pulse Rate 87 88 96 H Respiratory Rate Blood Pressure 140/83 156/75 154/62 O2 Sat by Pulse Oximetry 01/31/19 01/31/19 01/31/19 09:30 09:45 10:00 Temperature Pulse Rate 90 89 87 Respiratory Rate Blood Pressure 163/82 166/65 166/87 O2 Sat by Pulse Oximetry 01/31/19 01/31/19 01/31/19 10:15 10:30 10:45 Temperature Pulse Rate 90 94 H 96 H Respiratory Rate Blood Pressure 170/84 170/90 166/88 O2 Sat by Pulse Oximetry 01/31/19 01/31/19 01/31/19 11:00 11:15 11:36 Temperature Pulse Rate 89 107 H 96 H Respiratory Rate Blood Pressure 167/91 156/87 166/89 O2 Sat by Pulse Oximetry 01/31/19 01/31/19 01/31/19 11:45 12:00 12:15 Temperature Pulse Rate 106 H 100 H 107 H Respiratory Rate Blood Pressure 177/87 163/80 166/90 O2 Sat by Pulse Oximetry 01/31/19 01/31/19 12:30 13:08 Temperature 97.0 F L Pulse Rate 101 H 101 H Respiratory 16 Rate Blood Pressure 144/64 141/64 O2 Sat by Pulse Oximetry - General Appearance General appearance: chronically ill, frail, anxious EENT: ATNC, PERRL Neck: no JVD Respiratory: Present: Clear to Ascultation Cardiology: regular, S1S2 Gastrointestinal: normal, normoactive bowel sounds Integumentary: no rash Neurologic: CN 3-12 intact Psychiatric: mood/affect appropriate - Lab 01/30/19 14:49 01/30/19 14:49 Most recent lab results Calcium 9.5 mg/dL (8.4-10.2) 01/30/19 14:49 Phosphorus 2.90 mg/dL (2.5-4.5) D 01/05/19 04:56 Magnesium 2.00 mg/dL (1.7-2.3) 01/05/19 04:56 - Imaging CT scan - abdomen: image reviewed (reviewed CT abdomen with lesions/ulcers noted. ), other Medications & Allergies - Medications Allergies/Adverse Reactions: Allergies haloperidol [From Haldol] Adverse Reaction (Verified 03/13/18 12:10) Unknown haloperidol lactate [From Haldol] Adverse Reaction (Verified 03/13/18 12:10) Unknown Home Medications: Home Medications Medication Instructions Recorded Confirmed Last Taken Type risperiDONE [RisperDAL] 1 mg PO QAM 03/13/18 12/27/18 Unknown History Sertraline [Zoloft] 100 mg PO QDAY 08/26/18 12/27/18 Unknown History risperiDONE [RisperDAL] 0.5 mg PO HS 08/26/18 12/27/18 Unknown History Polyethylene Glycol 3350 [Miralax 17 gm PO QDAY #30 packet 11/05/18 12/27/18 Unknown Rx 3350] Aspirin EC 81 mg PO DAILY #30 11/19/18 12/27/18 Unknown Rx Docusate Sodium [Colace CAP] 100 mg PO BID #60 11/19/18 12/27/18 Unknown Rx Folic Acid [Folvite] 1 mg PO DAILY #30 tab 11/19/18 12/27/18 Unknown Rx Famotidine [Pepcid] 20 mg PO DAILY tablet 12/08/18 12/27/18 Unknown Rx Gabapentin [Neurontin] 100 mg PO QHS capsule 12/08/18 12/27/18 Unknown Rx Metoprolol [Lopressor TAB] 50 mg PO BID 30 Days tablet 12/08/18 12/27/18 Unknown Rx Sevelamer Carbonate [Renvela] 800 mg PO TIDWM tablet 12/08/18 12/27/18 Unknown Rx hydrALAZINE [Apresoline TAB] 100 mg PO Q8HR #120 tablet 12/08/18 12/27/18 Unknown Rx Acetaminophen [Acetaminophen TAB] 650 mg PO Q12H PRN 12/15/18 12/27/18 Unknown History Amino Acids/Protein Hydrolys 30 ml PO BID 12/15/18 12/27/18 Unknown History [Pro-Stat Sugar Free Liquid] Glucagon,Human Recombinant 1 mg IJ Q15MIN PRN 12/15/18 12/27/18 Unknown History [Glucagon Emergency Kit] Insulin Aspart [NovoLOG 100 See Protocol SQ QWEEK 12/15/18 12/27/18 Unknown History UNITS/ML VIAL] Epoetin Solitario 10,000 Unit [Procrit] 10,000 unit IV UMA PRN vial 12/18/18 12/27/18 Unknown Rx Lispro Insulin [HumaLOG] 0 unit SUB-Q ACHS units 12/18/18 12/27/18 Unknown Rx risperiDONE [RisperDAL] 0.5 mg PO QHS tablet 12/18/18 12/27/18 Unknown Rx Meropenem [Merrem] 1,000 mg IV Q24HR vial 01/16/19 Unknown Rx Active Medications: Generic Name Dose Route Start Last Admin Trade Name Freq PRN Reason Stop Dose Admin Lipase/Protease/Amylase 1 each 01/28/19 14:53 Pancrejewel Barrientos 10,500 Unit FEEDTUBE PRN PRN For Clogged Feeding Tube Aspirin 81 mg 12/27/18 10:00 01/30/19 10:33 Halfprin Ec PO 81 mg DAILY SANCHEZ Administration Diltiazem HCl 60 mg 01/22/19 10:00 01/30/19 21:18 Cardizem PO 60 mg BID SANCHEZ Administration Diphenhydramine HCl 25 mg 01/26/19 05:54 01/29/19 22:18 Benadryl PO 25 mg Q6H PRN Administration Itching Epoetin Solitario 20,000 unit 01/05/19 11:03 01/31/19 10:01 Procrit IV 20,000 unit UMA PRN Administration hemodialysis Famotidine 20 mg 12/27/18 10:00 01/30/19 10:33 Pepcid PO 20 mg DAILY SANCHEZ Administration Folic Acid 1 mg 12/27/18 10:00 01/30/19 10:34 Folvite PO 1 mg DAILY SANCHEZ Administration Gabapentin 100 mg 12/26/18 22:00 01/30/19 21:19 Neurontin PO 100 mg QHS SANCHEZ Administration Heparin Sodium (Porcine) 5,000 unit 01/23/19 22:00 01/30/19 21:18 Heparin SUB-Q 5,000 unit Q12HR SANCHEZ Administration Hydralazine HCl 100 mg 12/26/18 22:00 01/31/19 05:17 Apresoline PO 100 mg Q8HR SANCHEZ Administration Meropenem 1,000 mg/ Sodium 100 mls @ 100 mls/hr 01/05/19 11:00 01/30/19 14:12 Chloride IV 02/16/19 10:59 Infused Q24HR SANCHEZ Infusion Vancomycin HCl 1 gm in 250 mls @ 167.007 mls/hr 01/06/19 20:00 01/29/19 22:17 Vancomycin/Ns 1 Gm/250 Ml IV 02/16/19 19:59 167.007 mls/hr TuThSa SANCHEZ Administration Sodium Chloride 100 mls @ 999 mls/hr 01/19/19 09:29 Nacl 0.9% IV UMA PRN Hypotension Insulin Human Regular 0 units 01/14/19 00:00 01/31/19 07:04 Humulin R SUB-Q Not Given Q6HR [facility] Protocol Metoprolol Tartrate 100 mg 12/31/18 22:00 01/30/19 21:18 Lopressor PO 100 mg BID SANCHEZ Administration Morphine Sulfate 2 mg 01/21/19 04:08 01/31/19 10:29 Morphine IV 2 mg Q4H PRN Administration Pain, Moderate (4-6) Nitroglycerin 0.4 mg 01/21/19 04:05 01/21/19 04:15 Nitrostat SL 0.4 mg .Q5MIN PRN Administration Chest Pain Oxycodone/Acetaminophen 1 tab 01/05/19 08:30 01/30/19 05:51 Percocet 5/325 PO 1 tab Q6H PRN Administration Pain, Moderate (4-6) Risperidone 0.5 mg 12/26/18 22:00 01/30/19 21:19 Risperdal PO 0.5 mg QHS SANCHEZ Administration Risperidone 1 mg 01/31/19 10:30 Risperdal PO QAM SANCHEZ Sertraline HCl 100 mg 12/27/18 10:00 01/30/19 10:40 Zoloft PO Not Given QDAY SANCHEZ Simple Syrup 15 ml 01/28/19 14:53 Simple Syrup FEEDTUBE PRN PRN Hypoglycemia Simple Syrup 30 ml 01/28/19 14:53 Simple Syrup FEEDTUBE PRN PRN Hypoglycemia Sodium Bicarbonate 325 mg 01/28/19 14:53 Sodium Bicarbonate FEEDTUBE PRN PRN For Clogged Feeding Tube Sodium Chloride 10 ml 12/26/18 22:00 01/30/19 21:19 Sodium Chloride Flush Syringe 10 Ml IV 10 ml BID SANCHEZ Administration Sodium Hypochlorite 1 applic 01/19/19 10:00 01/30/19 10:35 Dakin's Half Strength TP 1 applicatio QDAY SANCHEZ Administration
[2019-01-31] MEDS: ZOLOFT PO SCH (14:53)
[2019-01-31] MEDS: CARDIZEM PO SCH ×2 (14:54→21:03)
[2019-01-31] MEDS: PEPCID PO SCH (14:54)
[2019-01-31] MEDS: HALFPRIN EC PO SCH (14:54)
[2019-01-31] MEDS: FOLVITE PO SCH (14:55)
[2019-01-31] MEDS: HEPARIN SUB-Q SCH ×2 (14:55→21:03)
[2019-01-31] MEDS: LOPRESSOR PO SCH ×2 (14:56→21:04)
[2019-01-31] MEDS: DAKIN'S HALF STRENGTH TP SCH (14:57)
[2019-01-31] MEDS: MERREM 1,000 MG in NACL 0.9% 100 ML IV SCH (14:58)
[2019-01-31] MEDS: SODIUM CHLORIDE FLUSH SYRINGE 10 ML IV SCH (15:20)
[2019-01-31] MEDS: NEURONTIN PO SCH (21:02)
[2019-01-31] MEDS: RisperDAL PO SCH (21:03)
[2019-01-31] MEDS: PERCOCET 5/325 PO PRN (21:04)
[2019-01-31] MEDS: VANCOMYCIN/NS 1 GM/250 ML 1 GM/250 ML BAG IV SCH (21:20)
[2019-02-01] MEDS: SODIUM CHLORIDE FLUSH SYRINGE 10 ML IV SCH ×3 (00:19→22:08)
[2019-02-01] MEDS: HumuLIN R SUB-Q SCH ×4 (00:22→18:00)
[2019-02-01] MEDS: APRESOLINE PO SCH ×3 (05:33→22:06)
[2019-02-01] MEDS: PERCOCET 5/325 PO PRN ×2 (05:33→22:07)
[2019-02-01] MEDS: MERREM 1,000 MG in NACL 0.9% 100 ML IV SCH (11:33)
[2019-02-01] MEDS: CARDIZEM PO SCH ×2 (11:34→22:06)
[2019-02-01] MEDS: LOPRESSOR PO SCH ×2 (11:34→22:07)
[2019-02-01] MEDS: RisperDAL PO SCH ×2 (11:34→22:06)
[2019-02-01] MEDS: ZOLOFT PO SCH (11:34)
[2019-02-01] MEDS: HALFPRIN EC PO SCH (11:34)
[2019-02-01] MEDS: PEPCID PO SCH (11:35)
[2019-02-01] MEDS: FOLVITE PO SCH (11:35)
[2019-02-01] MEDS: DAKIN'S HALF STRENGTH TP SCH (11:35)
[2019-02-01] MEDS: HEPARIN SUB-Q SCH ×2 (11:36→22:08)
--- NOTE | 2019-02-01 12:31 | Progress Note ---
Assessment and Plan - Patient Problems (1) ESRD (end stage renal disease) Current Visit: Yes Status: Acute Plan to address problem: END-STAGE RENAL DISEASE. DIALYSIS ACCESS RIGHT tunnel dialysis catheter continue hemodialysis Saturday, , Saturday (2) CHF (congestive heart failure) Current Visit: Yes Status: Acute Qualifiers: Heart failure type: unspecified Heart failure chronicity: acute on chronic Qualified Code(s): I50.9 - Heart failure, unspecified Plan to address problem: Chronic Congestive heart failure: continue current medications. (3) Anemia in ESRD (end-stage renal disease) Current Visit: Yes Status: Chronic Plan to address problem: moderate Anemia due to chronic kidney disease Hb: 8.4g/dl continue epogen [id number] TTS monitor cbc (4) Decubitus ulcer of sacral region, unstageable Current Visit: Yes Status: Acute Plan to address problem: Large decubitus ulcer wound cultures with polymicrobial growth s/p diverting colostomy continue antibiotics with meropenem. Subjective Principal diagnosis: afib Interval history: 63 year old with medical history significant for HTN, dementia, ESRD on hemodialysis TTS via a Right IJ Perm cath . with infected decubitus ulcers . Patient seen today drowsy tolerated dialysis well. much more awake , in good spirits edema improved Objective - Vital Signs Vital signs: Vital Signs - 12hr 02/01/19 05:15 Temperature 98.9 F Pulse Rate 79 Respiratory 18 Rate Blood Pressure 144/66 O2 Sat by Pulse 98 Oximetry - General Appearance General appearance: well-developed EENT: ATNC, PERRL Neck: no JVD Respiratory: Present: Clear to Ascultation Cardiology: regular, S1S2 Gastrointestinal: normal, normoactive bowel sounds Neurologic: no focal deficit, CN 3-12 intact Psychiatric: mood/affect appropriate - Lab 01/30/19 14:49 01/30/19 14:49 Most recent lab results Calcium 9.5 mg/dL (8.4-10.2) 01/30/19 14:49 Phosphorus 2.90 mg/dL (2.5-4.5) D 01/05/19 04:56 Magnesium 2.00 mg/dL (1.7-2.3) 01/05/19 04:56 - Imaging Chest x-ray: image reviewed (I reviewed CT with extensive right gluteal ulcers. ) Medications & Allergies - Medications Allergies/Adverse Reactions: Allergies haloperidol [From Haldol] Adverse Reaction (Verified 03/13/18 12:10) Unknown haloperidol lactate [From Haldol] Adverse Reaction (Verified 03/13/18 12:10) Unknown Home Medications: Home Medications Medication Instructions Recorded Confirmed Last Taken Type risperiDONE [RisperDAL] 1 mg PO QAM 03/13/18 12/27/18 Unknown History Sertraline [Zoloft] 100 mg PO QDAY 08/26/18 12/27/18 Unknown History risperiDONE [RisperDAL] 0.5 mg PO HS 08/26/18 12/27/18 Unknown History Polyethylene Glycol 3350 [Miralax 17 gm PO QDAY #30 packet 11/05/18 12/27/18 Unknown Rx 3350] Aspirin EC 81 mg PO DAILY #30 11/19/18 12/27/18 Unknown Rx Docusate Sodium [Colace CAP] 100 mg PO BID #60 11/19/18 12/27/18 Unknown Rx Folic Acid [Folvite] 1 mg PO DAILY #30 tab 11/19/18 12/27/18 Unknown Rx Famotidine [Pepcid] 20 mg PO DAILY tablet 12/08/18 12/27/18 Unknown Rx Gabapentin [Neurontin] 100 mg PO QHS capsule 12/08/18 12/27/18 Unknown Rx Metoprolol [Lopressor TAB] 50 mg PO BID 30 Days tablet 12/08/18 12/27/18 Unknown Rx Sevelamer Carbonate [Renvela] 800 mg PO TIDWM tablet 12/08/18 12/27/18 Unknown Rx hydrALAZINE [Apresoline TAB] 100 mg PO Q8HR #120 tablet 12/08/18 12/27/18 Unknown Rx Acetaminophen [Acetaminophen TAB] 650 mg PO Q12H PRN 12/15/18 12/27/18 Unknown History Amino Acids/Protein Hydrolys 30 ml PO BID 12/15/18 12/27/18 Unknown History [Pro-Stat Sugar Free Liquid] Glucagon,Human Recombinant 1 mg IJ Q15MIN PRN 12/15/18 12/27/18 Unknown History [Glucagon Emergency Kit] Insulin Aspart [NovoLOG 100 See Protocol SQ QWEEK 12/15/18 12/27/18 Unknown History UNITS/ML VIAL] Epoetin Solitario 10,000 Unit [Procrit] 10,000 unit IV UMA PRN vial 12/18/18 12/27/18 Unknown Rx Lispro Insulin [HumaLOG] 0 unit SUB-Q ACHS units 12/18/18 12/27/18 Unknown Rx risperiDONE [RisperDAL] 0.5 mg PO QHS tablet 12/18/18 12/27/18 Unknown Rx Meropenem [Merrem] 1,000 mg IV Q24HR vial 01/16/19 Unknown Rx Active Medications: Generic Name Dose Route Start Last Admin Trade Name Freq PRN Reason Stop Dose Admin Lipase/Protease/Amylase 1 each 01/28/19 14:53 Pancreaze 10,500 Unit FEEDTUBE PRN PRN For Clogged Feeding Tube Aspirin 81 mg 12/27/18 10:00 02/01/19 11:34 Halfprin Ec PO 81 mg DAILY SANCHEZ Administration Diltiazem HCl 60 mg 01/22/19 10:00 02/01/19 11:34 Cardizem PO 60 mg BID SANCHEZ Administration Diphenhydramine HCl 25 mg 01/26/19 05:54 01/29/19 22:18 Benadryl PO 25 mg Q6H PRN Administration Itching Epoetin Solitario 20,000 unit 01/05/19 11:03 01/31/19 10:01 Procrit IV 20,000 unit UMA PRN Administration hemodialysis Famotidine 20 mg 12/27/18 10:00 02/01/19 11:35 Pepcid PO 20 mg DAILY SANCHEZ Administration Folic Acid 1 mg 12/27/18 10:00 02/01/19 11:35 Folvite PO 1 mg DAILY SANCHEZ Administration Gabapentin 100 mg 12/26/18 22:00 01/31/19 21:02 Neurontin PO 100 mg QHS SANCHEZ Administration Heparin Sodium (Porcine) 5,000 unit 01/23/19 22:00 02/01/19 11:36 Heparin SUB-Q 5,000 unit Q12HR SANCHEZ Administration Hydralazine HCl 100 mg 12/26/18 22:00 02/01/19 05:33 Apresoline PO 100 mg Q8HR SANCHEZ Administration Meropenem 1,000 mg/ Sodium 100 mls @ 100 mls/hr 01/05/19 11:00 02/01/19 11:33 Chloride IV 02/16/19 10:59 100 mls/hr Q24HR SANCHEZ Administration Vancomycin HCl 1 gm in 250 mls @ 167.007 mls/hr 01/06/19 20:00 01/31/19 21:20 Vancomycin/Ns 1 Gm/250 Ml IV 02/16/19 19:59 167.007 mls/hr TuThSa SANCHEZ Administration Sodium Chloride 100 mls @ 999 mls/hr 01/19/19 09:29 Nacl 0.9% IV UMA PRN Hypotension Insulin Human Regular 0 units 01/14/19 00:00 02/01/19 11:35 Humulin R SUB-Q Not Given Q6HR [facility] Protocol Metoprolol Tartrate 100 mg 12/31/18 22:00 02/01/19 11:34 Lopressor PO 100 mg BID SANCHEZ Administration Morphine Sulfate 2 mg 01/21/19 04:08 01/31/19 10:29 Morphine IV 2 mg Q4H PRN Administration Pain, Moderate (4-6) Nitroglycerin 0.4 mg 01/21/19 04:05 01/21/19 04:15 Nitrostat SL 0.4 mg .Q5MIN PRN Administration Chest Pain Oxycodone/Acetaminophen 1 tab 01/05/19 08:30 02/01/19 05:33 Percocet 5/325 PO 1 tab Q6H PRN Administration Pain, Moderate (4-6) Risperidone 0.5 mg 12/26/18 22:00 01/31/19 21:03 Risperdal PO 0.5 mg QHS SANCHEZ Administration Risperidone 1 mg 01/31/19 10:30 02/01/19 11:34 Risperdal PO 1 mg QAM SANCHEZ Administration Sertraline HCl 100 mg 12/27/18 10:00 02/01/19 11:34 Zoloft PO 100 mg QDAY SANCHEZ Administration Simple Syrup 15 ml 01/28/19 14:53 Simple Syrup FEEDTUBE PRN PRN Hypoglycemia Simple Syrup 30 ml 01/28/19 14:53 Simple Syrup FEEDTUBE PRN PRN Hypoglycemia Sodium Bicarbonate 325 mg 01/28/19 14:53 Sodium Bicarbonate FEEDTUBE PRN PRN For Clogged Feeding Tube Sodium Chloride 10 ml 12/26/18 22:00 02/01/19 11:36 Sodium Chloride Flush Syringe 10 Ml IV 10 ml BID SANCHEZ Administration Sodium Hypochlorite 1 applic 01/19/19 10:00 02/01/19 11:35 Estephania's Half Strength TP 1 applicatio QDAY SANCHEZ Administration
--- NOTE | 2019-02-01 13:06 | Progress Note ---
Assessment and Plan /Severe Sepsis due to Necrotizing Unstagable sacral decubitus ulcer with ostemomylitis s/p OR on 01/01/2019 for open excisional debridement of necrotic and infected sacral wound noted a large amount of necrotic tissue debrided and two abscess cavities at the caudad portion of the wound with a copious amount of purulent drainage which was drained. Wound cultures 01/02/2019 ESBL Kleb, MDR Ecoli and E raffinosus resistant to penicillin: On meropenam and vanc per ID. Consult Vascular surgery for central line placement, planned for diverting colostomy, family has agreed, Cardiology re-evaluated for surgery, input noted, high CV risk. Dr. Villela recommend Merem, 01/08/19, now ongoing to run till 02/16/19. Further debridement done 01/14/19. he is medically stable awaiting placement. case management working on placement. /Acute on chronic Anemia of AOCD: Continue epoetin, total of 8 units PRBC, follow cbc- no occult GI bleed noted. GI input noted, No retroperitoneal bleed noted. Although 150cc Of blood loss documented during debridement, No further bleeding from sacral wound noted Dakins moistened kerlex packing started Pt is s/p x1 DDVAP /Chest pain, now resolved, medical management /Acute metabolic encephalopathy due to the above /Acute systolic exacerbation of CHF (congestive heart failure): treat via Ultrafiltration during HD /Afib with RVR: rate control only and optimize meds per Cardiology /ESRD needing dialysis: Nephology is managing, Continue hemo dialysis /Insulin dependent diabetes mellitus, A1c is 4.2: insulin was dc /Severe malnutrition with FTT: 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, cont oral diet, folding rules printing 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 Per discussion with Surgery and as documented by them "Very poor prognosis for wound healing. I do not feel wound will ever heal due to extensive nature, poor nutrition, bedbound status, among other comorbidities. Recommend hospice." Family not accepting at this time. Ok to dc to NH when bed available. Would hold off on vac and continue dakins dressings to wound. May follow up in wound care center after dc. Discussed with case management. Still Awaiting placement Brief history: Patient is a 63-year-old -Citizen Of [place] man from [facility] with a plethora of co-morbidities including blindness, CVA, CHF, PPM/ICD, loop recorder since 2012 that is MRI compatible, IDDM type 2, sepsis left foot ulcer, afib, ESRD with complications on HD TTS, hypertension, AOCD and GERD who presented to [facility] with altered sensorium and decreased responsiveness. Decreased responsive and not eating at all for 2 days. Patient has failure to thrive, altered mentation and weight loss of 20 pounds since 12/08/2018. Hospitalist Physical Gen: Not in acute distress, obese,ill looking HEENT: Normocephalic, atraumatic Neck: supple, no JVD Heart: S1 and S2 reg, no murmurs, rubs or gallop Lungs: Clear, no crackles, no wheeze Abd: soft, non tender, non distended, normal BS, PEg tube Ext: Contracted, no clubbing, no cyanosis, Sacrum: sacral decub ulcer Neuro: Lethargic but answers to simple question, Subjective Date of service: 02/01/19 Principal diagnosis: afib Interval history: Patient seen and examined. Medical records and medication list reviewed. No acute event overnight noted by the RN. Discussed plan of care at bedside with patient's RN and CM Discharge pending on placement. Objective - Constitutional Vitals: Vital Signs - 12hr 02/01/19 05:15 Temperature 98.9 F Pulse Rate 79 Respiratory 18 Rate Blood Pressure 144/66 O2 Sat by Pulse 98 Oximetry - Labs CBC & Chem 7: 01/30/19 14:49 01/30/19 14:49 Labs: Abnormal lab results 01/31/19 01/31/19 01/31/19 Range/Units 14:51 18:19 23:48 POC Glucose 143 H 132 H 122 H (70-105) 02/01/19 02/01/19 Range/Units 06:00 11:28 POC Glucose 127 H 112 H (70-105)
[2019-02-01] MEDS: NEURONTIN PO SCH (22:07)
[2019-02-02] MEDS: HumuLIN R SUB-Q SCH ×4 (01:35→17:39)
[2019-02-02] MEDS: PERCOCET 5/325 PO PRN ×2 (05:55→14:27)
[2019-02-02] MEDS: APRESOLINE PO SCH ×3 (05:55→21:31)
--- NOTE | 2019-02-02 09:11 | Progress Note ---
Subjective Principal diagnosis: afib Interval history: Patient was seen today for follow-up on multiple renal related issues Events of this hospitalization noted Currently on dialysis Saturday Resting comfortably, no acute distress Status post diverting colostomy Vitals labs intake output medications were reviewed Social history: Reviewed Allergies: Reviewed Family history: Reviewed Physical examination HEENT: Oral mucosa moist no pallor or icterus Neck: Supple no JVD Chest: Clear to auscultation anteriorly CVS: Regular rate and rhythm S1 and S2 heard Abdomen: Soft nontender no suprapubic masses no organomegaly appreciable Extremity: Dry skin less than 1+ peripheral edema Musculoskeletal: No joint effusion noted in knees and ankle Neurological: Alert awake Dermatology: No petechial rashes Psychiatry: No evidence of any agitation and aggression noted Assessment and plan; ESRD: Continue with hemodialysis Saturday Current access is a central venous catheter which is working well Congestive heart failure fluid restriction, about 1200 mL per day Anemia: On erythropoietin 3 times a week Large decubitus sacral ulcer, Status post diverting colostomy January 30 hemoglobin 8.4 platelet count 340,000 potassium 3.9 BUN 22 creatinine 2.1 Overall prognosis guarded to poor We'll continue to follow and make recommendation from renal standpoint Objective - Vital Signs Vital signs: Vital Signs - 12hr 02/01/19 02/01/19 02/01/19 21:38 22:06 22:07 Temperature 97.5 F L Pulse Rate 80 80 80 Respiratory 18 Rate Blood Pressure 155/71 155/81 155/81 O2 Sat by Pulse 96 Oximetry 02/02/19 05:29 Temperature 98.2 F Pulse Rate 79 Respiratory 20 Rate Blood Pressure 141/65 O2 Sat by Pulse 99 Oximetry - Lab 01/30/19 14:49 01/30/19 14:49 Most recent lab results Calcium 9.5 mg/dL (8.4-10.2) 01/30/19 14:49 Phosphorus 2.90 mg/dL (2.5-4.5) D 01/05/19 04:56 Magnesium 2.00 mg/dL (1.7-2.3) 01/05/19 04:56 Medications & Allergies - Medications Allergies/Adverse Reactions: Allergies haloperidol [From Haldol] Adverse Reaction (Verified 03/13/18 12:10) Unknown haloperidol lactate [From Haldol] Adverse Reaction (Verified 03/13/18 12:10) Unknown Home Medications: Home Medications Medication Instructions Recorded Confirmed Last Taken Type risperiDONE [RisperDAL] 1 mg PO QAM 03/13/18 12/27/18 Unknown History Sertraline [Zoloft] 100 mg PO QDAY 08/26/18 12/27/18 Unknown History risperiDONE [RisperDAL] 0.5 mg PO HS 08/26/18 12/27/18 Unknown History Polyethylene Glycol 3350 [Miralax 17 gm PO QDAY #30 packet 11/05/18 12/27/18 Unknown Rx 3350] Aspirin EC 81 mg PO DAILY #30 11/19/18 12/27/18 Unknown Rx Docusate Sodium [Colace CAP] 100 mg PO BID #60 11/19/18 12/27/18 Unknown Rx Folic Acid [Folvite] 1 mg PO DAILY #30 tab 11/19/18 12/27/18 Unknown Rx Famotidine [Pepcid] 20 mg PO DAILY tablet 12/08/18 12/27/18 Unknown Rx Gabapentin [Neurontin] 100 mg PO QHS capsule 12/08/18 12/27/18 Unknown Rx Metoprolol [Lopressor TAB] 50 mg PO BID 30 Days tablet 12/08/18 12/27/18 Unknown Rx Sevelamer Carbonate [Renvela] 800 mg PO TIDWM tablet 12/08/18 12/27/18 Unknown Rx hydrALAZINE [Apresoline TAB] 100 mg PO Q8HR #120 tablet 12/08/18 12/27/18 Unknown Rx Acetaminophen [Acetaminophen TAB] 650 mg PO Q12H PRN 12/15/18 12/27/18 Unknown History Amino Acids/Protein Hydrolys 30 ml PO BID 12/15/18 12/27/18 Unknown History [Pro-Stat Sugar Free Liquid] Glucagon,Human Recombinant 1 mg IJ Q15MIN PRN 12/15/18 12/27/18 Unknown History [Glucagon Emergency Kit] Insulin Aspart [NovoLOG 100 See Protocol SQ QWEEK 12/15/18 12/27/18 Unknown History UNITS/ML VIAL] Epoetin Solitario 10,000 Unit [Procrit] 10,000 unit IV UMA PRN vial 12/18/18 12/27/18 Unknown Rx Lispro Insulin [HumaLOG] 0 unit SUB-Q ACHS units 12/18/18 12/27/18 Unknown Rx risperiDONE [RisperDAL] 0.5 mg PO QHS tablet 12/18/18 12/27/18 Unknown Rx Meropenem [Merrem] 1,000 mg IV Q24HR vial 01/16/19 Unknown Rx Active Medications: Generic Name Dose Route Start Last Admin Trade Name Freq PRN Reason Stop Dose Admin Lipase/Protease/Amylase 1 each 01/28/19 14:53 Pancreaze 10,500 Unit FEEDTUBE PRN PRN For Clogged Feeding Tube Aspirin 81 mg 12/27/18 10:00 02/01/19 11:34 Halfprin Ec PO 81 mg DAILY SANCHEZ Administration Diltiazem HCl 60 mg 01/22/19 10:00 02/01/19 22:06 Cardizem PO 60 mg BID SANCHEZ Administration Diphenhydramine HCl 25 mg 01/26/19 05:54 01/29/19 22:18 Benadryl PO 25 mg Q6H PRN Administration Itching Epoetin Solitario 20,000 unit 01/05/19 11:03 01/31/19 10:01 Procrit IV 20,000 unit UMA PRN Administration hemodialysis Famotidine 20 mg 12/27/18 10:00 02/01/19 11:35 Pepcid PO 20 mg DAILY SANCHEZ Administration Folic Acid 1 mg 12/27/18 10:00 02/01/19 11:35 Folvite PO 1 mg DAILY SANCHEZ Administration Gabapentin 100 mg 12/26/18 22:00 02/01/19 22:07 Neurontin PO 100 mg QHS SANCHEZ Administration Heparin Sodium (Porcine) 5,000 unit 01/23/19 22:00 02/01/19 22:08 Heparin SUB-Q 5,000 unit Q12HR SANCHEZ Administration Hydralazine HCl 100 mg 12/26/18 22:00 02/02/19 05:55 Apresoline PO 100 mg Q8HR SANCHEZ Administration Meropenem 1,000 mg/ Sodium 100 mls @ 100 mls/hr 01/05/19 11:00 02/01/19 11:33 Chloride IV 02/16/19 10:59 100 mls/hr Q24HR SANCHEZ Administration Vancomycin HCl 1 gm in 250 mls @ 167.007 mls/hr 01/06/19 20:00 01/31/19 21:20 Vancomycin/Ns 1 Gm/250 Ml IV 02/16/19 19:59 167.007 mls/hr TuThSa SANCHEZ Administration Sodium Chloride 100 mls @ 999 mls/hr 01/19/19 09:29 Nacl 0.9% IV UMA PRN Hypotension Insulin Human Regular 0 units 01/14/19 00:00 02/02/19 08:54 Humulin R SUB-Q Not Given Q6HR [facility] Protocol Metoprolol Tartrate 100 mg 12/31/18 22:00 02/01/19 22:07 Lopressor PO 100 mg BID SANCHEZ Administration Morphine Sulfate 2 mg 01/21/19 04:08 01/31/19 10:29 Morphine IV 2 mg Q4H PRN Administration Pain, Moderate (4-6) Nitroglycerin 0.4 mg 01/21/19 04:05 01/21/19 04:15 Nitrostat SL 0.4 mg .Q5MIN PRN Administration Chest Pain Oxycodone/Acetaminophen 1 tab 01/05/19 08:30 02/02/19 05:55 Percocet 5/325 PO 1 tab Q6H PRN Administration Pain, Moderate (4-6) Risperidone 0.5 mg 12/26/18 22:00 02/01/19 22:06 Risperdal PO 0.5 mg QHS SANCHEZ Administration Risperidone 1 mg 01/31/19 10:30 02/01/19 11:34 Risperdal PO 1 mg QAM SANCHEZ Administration Sertraline HCl 100 mg 12/27/18 10:00 02/01/19 11:34 Zoloft PO 100 mg QDAY SANCHEZ Administration Simple Syrup 15 ml 01/28/19 14:53 Simple Syrup FEEDTUBE PRN PRN Hypoglycemia Simple Syrup 30 ml 01/28/19 14:53 Simple Syrup FEEDTUBE PRN PRN Hypoglycemia Sodium Bicarbonate 325 mg 01/28/19 14:53 Sodium Bicarbonate FEEDTUBE PRN PRN For Clogged Feeding Tube Sodium Chloride 10 ml 12/26/18 22:00 02/01/19 22:08 Sodium Chloride Flush Syringe 10 Ml IV 10 ml BID SANCHEZ Administration Sodium Hypochlorite 1 applic 01/19/19 10:00 02/01/19 11:35 Dakin's Half Strength TP 1 applicatio QDAY SANCHEZ Administration
[2019-02-02] MEDS: ZOLOFT PO SCH (09:26)
[2019-02-02] MEDS: DAKIN'S HALF STRENGTH TP SCH (09:26)
[2019-02-02] MEDS: FOLVITE PO SCH (09:26)
[2019-02-02] MEDS: CARDIZEM PO SCH ×2 (09:26→21:31)
[2019-02-02] MEDS: LOPRESSOR PO SCH ×2 (09:26→21:32)
[2019-02-02] MEDS: RisperDAL PO SCH ×2 (09:26→21:32)
[2019-02-02] MEDS: PEPCID PO SCH (09:26)
[2019-02-02] MEDS: HALFPRIN EC PO SCH (09:26)
[2019-02-02] MEDS: HEPARIN SUB-Q SCH ×2 (09:26→21:31)
[2019-02-02] MEDS: SODIUM CHLORIDE FLUSH SYRINGE 10 ML IV SCH ×2 (09:27→21:32)
[2019-02-02] MEDS: MERREM 1,000 MG in NACL 0.9% 100 ML IV SCH (09:28)
--- NOTE | 2019-02-02 13:28 | Progress Note ---
Assessment and Plan /Severe Sepsis due to Necrotizing Unstagable sacral decubitus ulcer with ostemomylitis s/p OR on 01/01/2019 for open excisional debridement of necrotic and infected sacral wound noted a large amount of necrotic tissue debrided and two abscess cavities at the caudad portion of the wound with a copious amount of purulent drainage which was drained. Wound cultures 01/02/2019 ESBL Kleb, MDR Ecoli and E raffinosus resistant to penicillin: On meropenam and vanc per ID. Consult Vascular surgery for central line placement, planned for diverting colostomy, family has agreed, Cardiology re-evaluated for surgery, input noted, high CV risk. Dr. Villela recommend Merem, 01/08/19, now ongoing to run till 02/16/19. Further debridement done 01/14/19. he is medically stable awaiting placement. case management working on placement. /Acute on chronic Anemia of AOCD: Continue epoetin, total of 8 units PRBC, follow cbc- no occult GI bleed noted. GI input noted, No retroperitoneal bleed noted. Although 150cc Of blood loss documented during debridement, No further bleeding from sacral wound noted Dakins moistened kerlex packing started Pt is s/p x1 DDVAP /Chest pain, now resolved, medical management /Acute metabolic encephalopathy due to the above /Acute systolic exacerbation of CHF (congestive heart failure): treat via Ultrafiltration during HD /Afib with RVR: rate control only and optimize meds per Cardiology /ESRD needing dialysis: Nephology is managing, Continue hemo dialysis /Insulin dependent diabetes mellitus, A1c is 4.2: insulin was dc /Severe malnutrition with FTT: 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, cont oral diet, food safety field specialist input appreciated, PEG tube placed on 01/02/19 /Hypertension: Continue antihypertensives /h/o Peripheral neuropathy: Continue gabapentin /Elevated troponin, Secondary to end-stage renal disease, chf and afib, Cardiology input appreciated DVT prophylaxis On heparin and GI prophylaxis /Hyperkalemia Resolved Poor prognosis discussed with family member Mr Jennifer Mims. Per discussion with Surgery and as documented by them "Very poor prognosis for wound healing. I do not feel wound will ever heal due to extensive nature, poor nutrition, bedbound status, among other comorbidities. Recommend hospice." Family not accepting at this time. Ok to dc to NH when bed available. Would hold off on vac and continue dakins dressings to wound. May follow up in wound care center after dc. Discussed with case management. Still Awaiting placement Brief history: Patient is a 63-year-old -[place] man from [facility] with a plethora of co-morbidities including blindness, CVA, CHF, PPM/ICD, loop recorder since 2012 that is MRI compatible, IDDM type 2, sepsis left foot ulcer, afib, ESRD with complications on HD TTS, hypertension, AOCD and GERD who presented to [facility] with altered sensorium and decreased responsiveness. Decreased responsive and not eating at all for 2 days. Patient has failure to thrive, altered mentation and weight loss of 20 pounds since 12/08/2018. Now being managed for Severe Sepsis due to Necrotizing Unstagable sacral decubitus ulcer with ostemomylitis, need abx till 02/16/19. need isolation SNF bed on discharge. Hospitalist Physical Gen: Not in acute distress, ill looking HEENT: Normocephalic, atraumatic Neck: supple, no JVD Heart: S1 and S2 reg, no murmurs, rubs or gallop Lungs: Clear, no crackles, no wheeze Abd: soft, non tender, non distended, normal BS, PEg tube Ext: Contracted, no edema Sacrum: sacral decub ulcer Neuro: Lethargic but answers to simple question, Subjective Date of service: 02/02/19 Principal diagnosis: afib Interval history: Patient seen and examined. Medical records and medication list reviewed. No acute event overnight noted by the RN. Discussed plan of care at bedside with patient's RN and CM Discharge pending on placement. Objective - Constitutional Vitals: Vital Signs - 12hr 02/02/19 05:29 Temperature 98.2 F Pulse Rate 79 Respiratory 20 Rate Blood Pressure 141/65 O2 Sat by Pulse 99 Oximetry - Labs CBC & Chem 7: 01/30/19 14:49 01/30/19 14:49 Labs: Abnormal lab results 02/01/19 02/01/19 02/02/19 Range/Units 17:15 23:28 05:38 POC Glucose 122 H 110 H 131 H (70-105) 02/02/19 02/02/19 Range/Units 08:12 11:38 POC Glucose 117 H 118 H (70-105)
[2019-02-02] MEDS: NEURONTIN PO SCH (21:32)
[2019-02-03] MEDS: HumuLIN R SUB-Q SCH ×3 (00:58→16:47)
[2019-02-03] MEDS: APRESOLINE PO SCH ×3 (05:49→21:52)
[2019-02-03] MEDS: DAKIN'S HALF STRENGTH TP SCH (06:00)
--- NOTE | 2019-02-03 09:10 | Progress Note ---
Subjective Principal diagnosis: afib Interval history: Patient was seen today for follow-up on multiple renal related issues Events of this hospitalization noted Currently on dialysis Saturday Status post diverting colostomy Vitals labs intake output medications were reviewed Social history: Reviewed Allergies: Reviewed Family history: Reviewed Physical examination HEENT: Oral mucosa moist no pallor or icterus Neck: Supple no JVD Chest: Clear to auscultation anteriorly CVS: Regular rate and rhythm S1 and S2 heard Abdomen: Soft nontender no suprapubic masses no organomegaly appreciable Extremity: Dry skin less than 1+ peripheral edema Musculoskeletal: No joint effusion noted in knees and ankle Neurological: Alert awake Dermatology: No petechial rashes Psychiatry: No evidence of any agitation and aggression noted Assessment and plan; ESRD: Continue with hemodialysis Saturday Will periodically check the labs He does have chronic upper extremity edema due to central venous catheter Current access is a central venous catheter which is working well Congestive heart failure fluid restriction, about 1200 mL per day Anemia: On erythropoietin 3 times a week Large decubitus sacral ulcer, Status post diverting colostomy January 30 hemoglobin 8.4 platelet count 340,000 potassium 3.9 BUN 22 creatinine 2.1 Overall prognosis guarded to poor We'll continue to follow and make recommendation from renal standpoint Objective - Vital Signs Vital signs: Vital Signs - 12hr 02/02/19 02/02/19 02/03/19 21:31 23:07 04:20 Temperature 97.3 F L 97.2 F L Pulse Rate 78 79 Respiratory 20 24 Rate Blood Pressure 160/90 125/69 142/77 O2 Sat by Pulse 100 100 Oximetry - Lab 01/30/19 14:49 01/30/19 14:49 Most recent lab results Calcium 9.5 mg/dL (8.4-10.2) 01/30/19 14:49 Phosphorus 2.90 mg/dL (2.5-4.5) D 01/05/19 04:56 Magnesium 2.00 mg/dL (1.7-2.3) 01/05/19 04:56 Medications & Allergies - Medications Allergies/Adverse Reactions: Allergies haloperidol [From Haldol] Adverse Reaction (Verified 03/13/18 12:10) Unknown haloperidol lactate [From Haldol] Adverse Reaction (Verified 03/13/18 12:10) Unknown Home Medications: Home Medications Medication Instructions Recorded Confirmed Last Taken Type risperiDONE [RisperDAL] 1 mg PO QAM 03/13/18 12/27/18 Unknown History Sertraline [Zoloft] 100 mg PO QDAY 08/26/18 12/27/18 Unknown History risperiDONE [RisperDAL] 0.5 mg PO HS 08/26/18 12/27/18 Unknown History Polyethylene Glycol 3350 [Miralax 17 gm PO QDAY #30 packet 11/05/18 12/27/18 Unknown Rx 3350] Aspirin EC 81 mg PO DAILY #30 11/19/18 12/27/18 Unknown Rx Docusate Sodium [Colace CAP] 100 mg PO BID #60 11/19/18 12/27/18 Unknown Rx Folic Acid [Folvite] 1 mg PO DAILY #30 tab 11/19/18 12/27/18 Unknown Rx Famotidine [Pepcid] 20 mg PO DAILY tablet 12/08/18 12/27/18 Unknown Rx Gabapentin [Neurontin] 100 mg PO QHS capsule 12/08/18 12/27/18 Unknown Rx Metoprolol [Lopressor TAB] 50 mg PO BID 30 Days tablet 12/08/18 12/27/18 Unknown Rx Sevelamer Carbonate [Renvela] 800 mg PO TIDWM tablet 12/08/18 12/27/18 Unknown Rx hydrALAZINE [Apresoline TAB] 100 mg PO Q8HR #120 tablet 12/08/18 12/27/18 Unknown Rx Acetaminophen [Acetaminophen TAB] 650 mg PO Q12H PRN 12/15/18 12/27/18 Unknown History Amino Acids/Protein Hydrolys 30 ml PO BID 12/15/18 12/27/18 Unknown History [Pro-Stat Sugar Free Liquid] Glucagon,Human Recombinant 1 mg IJ Q15MIN PRN 12/15/18 12/27/18 Unknown History [Glucagon Emergency Kit] Insulin Aspart [NovoLOG 100 See Protocol SQ QWEEK 12/15/18 12/27/18 Unknown History UNITS/ML VIAL] Epoetin Solitario 10,000 Unit [Procrit] 10,000 unit IV UMA PRN vial 12/18/18 12/27/18 Unknown Rx Lispro Insulin [HumaLOG] 0 unit SUB-Q ACHS units 12/18/18 12/27/18 Unknown Rx risperiDONE [RisperDAL] 0.5 mg PO QHS tablet 12/18/18 12/27/18 Unknown Rx Meropenem [Merrem] 1,000 mg IV Q24HR vial 01/16/19 Unknown Rx Active Medications: Generic Name Dose Route Start Last Admin Trade Name Freq PRN Reason Stop Dose Admin Lipase/Protease/Amylase 1 each 01/28/19 14:[address] 10,500 Unit FEEDTUBE PRN PRN For Clogged Feeding Tube Aspirin 81 mg 12/27/18 10:00 02/02/19 09:26 Halfprin Ec PO 81 mg DAILY SANCHEZ Administration Diltiazem HCl 60 mg 01/22/19 10:00 02/02/19 21:31 Cardizem PO 60 mg BID SANCHEZ Administration Diphenhydramine HCl 25 mg 01/26/19 05:54 01/29/19 22:18 Benadryl PO 25 mg Q6H PRN Administration Itching Epoetin Solitario 20,000 unit 01/05/19 11:03 01/31/19 10:01 Procrit IV 20,000 unit UMA PRN Administration hemodialysis Famotidine 20 mg 12/27/18 10:00 02/02/19 09:26 Pepcid PO 20 mg DAILY SANCHEZ Administration Folic Acid 1 mg 12/27/18 10:00 02/02/19 09:26 Folvite PO 1 mg DAILY SANCHEZ Administration Gabapentin 100 mg 12/26/18 22:00 02/02/19 21:32 Neurontin PO 100 mg QHS SANCHEZ Administration Heparin Sodium (Porcine) 5,000 unit 01/23/19 22:00 02/02/19 21:31 Heparin SUB-Q 5,000 unit Q12HR SANCHEZ Administration Hydralazine HCl 100 mg 12/26/18 22:00 02/03/19 05:49 Apresoline PO 100 mg Q8HR SANCHEZ Administration Meropenem 1,000 mg/ Sodium 100 mls @ 100 mls/hr 01/05/19 11:00 02/02/19 09:28 Chloride IV 02/16/19 10:59 100 mls/hr Q24HR SANCHEZ Administration Vancomycin HCl 1 gm in 250 mls @ 167.007 mls/hr 01/06/19 20:00 01/31/19 21:20 Vancomycin/Ns 1 Gm/250 Ml IV 02/16/19 19:59 167.007 mls/hr TuThSa SANCHEZ Administration Sodium Chloride 100 mls @ 999 mls/hr 01/19/19 09:29 Nacl 0.9% IV UMA PRN Hypotension Insulin Human Regular 0 units 01/14/19 00:00 02/03/19 07:42 Humulin R SUB-Q Not Given Q6HR [facility] Protocol Metoprolol Tartrate 100 mg 12/31/18 22:00 02/02/19 21:32 Lopressor PO 100 mg BID SANCHEZ Administration Morphine Sulfate 2 mg 01/21/19 04:08 01/31/19 10:29 Morphine IV 2 mg Q4H PRN Administration Pain, Moderate (4-6) Nitroglycerin 0.4 mg 01/21/19 04:05 01/21/19 04:15 Nitrostat SL 0.4 mg .Q5MIN PRN Administration Chest Pain Oxycodone/Acetaminophen 1 tab 01/05/19 08:30 02/02/19 14:27 Percocet 5/325 PO 1 tab Q6H PRN Administration Pain, Moderate (4-6) Risperidone 0.5 mg 12/26/18 22:00 02/02/19 21:32 Risperdal PO 0.5 mg QHS SANCHEZ Administration Risperidone 1 mg 01/31/19 10:30 02/02/19 09:26 Risperdal PO 1 mg QAM SANCHEZ Administration Sertraline HCl 100 mg 12/27/18 10:00 02/02/19 09:26 Zoloft PO 100 mg QDAY SANCHEZ Administration Simple Syrup 15 ml 01/28/19 14:53 Simple Syrup FEEDTUBE PRN PRN Hypoglycemia Simple Syrup 30 ml 01/28/19 14:53 Simple Syrup FEEDTUBE PRN PRN Hypoglycemia Sodium Bicarbonate 325 mg 01/28/19 14:53 Sodium Bicarbonate FEEDTUBE PRN PRN For Clogged Feeding Tube Sodium Chloride 10 ml 12/26/18 22:00 02/02/19 21:32 Sodium Chloride Flush Syringe 10 Ml IV 10 ml BID SANCHEZ Administration Sodium Hypochlorite 1 applic 01/19/19 10:00 02/02/19 09:26 Dakin's Half Strength TP 1 applicatio QDAY SANCHEZ Administration
[2019-02-03] MEDS: PROCRIT IV PRN (13:45)
[2019-02-03] MEDS: CARDIZEM PO SCH ×2 (15:28→21:52)
[2019-02-03] MEDS: LOPRESSOR PO SCH ×2 (15:29→21:52)
--- NOTE | 2019-02-03 16:44 | Progress Note ---
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 Wound cultures 01/02/2019 ESBL Kleb, MDR Ecoli and E raffinosus resistant to penicillin: On meropenam and vanc per ID. Consult Vascular surgery for central line placement, planned for diverting colostomy, family has agreed, Cardiology re-evaluated for surgery, input noted, high CV risk. Dr. Villela recommend [place], 01/08/19, now ongoing to run till 02/16/19. Further debridement done 01/14/19. he is medically stable awaiting placement. case management working on placement. 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 GI input noted, No retroperitoneal bleed noted. Although 150cc Of blood loss documented during debridement, No further bleeding from sacral wound noted, Dakins moistened kerlex packing started Pt is s/p x1 DDVAP --Atypical Chest pain, now resolved, medical management --Nonspecific Elevated troponin: Secondary to end-stage renal disease, chf and afib, Cardiology following --Metabolic encephalopathy due to underlying disease process, Supportive care --Acute systolic exacerbation of CHF EF 35-40% : treat via Ultrafiltration during HD --Afib with RVR: rate control only and optimize meds per Cardiology --ESRD needing dialysis: Nephology is managing, hemodialysis per schedule --Hyperkalemia: Resolved --Insulin dependent diabetes mellitus, A1c is 4.2: insulin was dc, Accu-Chek sliding scale coverage --Severe malnutrition /hypoalbuminemia with FTT: 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, 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 Per discussion with Surgery and as documented by them "Very poor prognosis for wound healing. I do not feel wound will ever heal due to extensive nature, poor nutrition, bedbound status, among other comorbidities. Recommend hospice." Family not accepting at this time. Ok to dc to [place] when bed available. Plan of care reviewed with the patient's nurse and case management Would hold off on vac and continue dakins dressings to wound. May follow up in wound care center after dc. Brief history: Patient is a 63-year-old -[place] man from [facility] with a plethora of co-morbidities including blindness, CVA, CHF, PPM/ICD, loop recorder since 2012 that is MRI compatible, IDDM type 2, sepsis left foot ulcer, afib, ESRD with complications on HD TTS, hypertension, AOCD and GERD who presented to [facility] with altered sensorium and decreased responsiveness. Decreased responsive and not eating at all for 2 days. Patient has failure to thrive, altered mentation and weight loss of 20 pounds since 12/08/2018. History Interval history: Patient seen and examined medical records reviewed No New over night events reported by the nursing Patient remains critically ill with poor prognosis Awaiting SNF placement Hospitalist Physical - Constitutional Vitals: Temp Pulse Resp BP Pulse Ox 98.0 F 80 18 131/70 100 02/03/19 14:00 02/03/19 14:00 02/03/19 14:00 02/03/19 14:00 02/03/19 04:20 General appearance: Present: no acute distress, well-nourished, obese - EENT Eyes: Present: PERRL, EOM intact - Neck Neck: Present: supple, normal ROM - Respiratory Respiratory effort: normal Respiratory: bilateral: diminished, rhonchi, negative: rales, wheezing - Cardiovascular Rhythm: regular Heart Sounds: Present: S1 & S2 - Extremities Extremities: no ischemia Extremity abnormal: edema - Abdominal General gastrointestinal: soft, non-tender, non-distended, normal bowel sounds, other (PEG tube in place) - Integumentary Integumentary: Present: clear, warm, pale (Necrotizing unstageable sacral decubitus ulcer with osteomyelitis) - Psychiatric Psychiatric: other (minimally communicative) - Neurologic Neurologic: other (minimally communicative) Results - Labs CBC & Chem 7: 01/30/19 14:49 01/30/19 14:49 Labs: Laboratory Last Values WBC 7.0 K/mm3 (4.5-11.0) 01/30/19 14:49 RBC 2.95 M/mm3 (3.65-5.03) L 01/30/19 14:49 Hgb 8.4 gm/dl (11.8-15.2) L 01/30/19 14:49 Hct 26.7 % (35.5-45.6) L 01/30/19 14:49 MCV 90 fl (84-94) 01/30/19 14:49 MCH 29 pg (28-32) 01/30/19 14:49 MCHC 32 % (32-34) 01/30/19 14:49 RDW 18.2 % (13.2-15.2) H 01/30/19 14:49 Plt Count 314 K/mm3 (140-440) 01/30/19 14:49 Lymph % (Auto) 11.4 % (13.4-35.0) L 01/25/19 05:05 [place] % (Auto) 11.2 % (0.0-7.3) H 01/25/19 05:05 Eos % (Auto) 8.2 % (0.0-4.3) H 01/25/19 05:05 Baso % (Auto) 1.9 % (0.0-1.8) H 01/25/19 05:05 Lymph # 0.8 K/mm3 (1.2-5.4) L 01/25/19 05:05 [place] # 0.7 K/mm3 (0.0-0.8) 01/25/19 05:05 Eos # 0.5 K/mm3 (0.0-0.4) H 01/25/19 05:05 Baso # 0.1 K/mm3 (0.0-0.1) 01/25/19 05:05 Add Manual Diff Complete 01/03/19 17:16 Total Counted 100 01/03/19 17:16 Seg Neutrophils % 67.3 % (40.0-70.0) 01/25/19 05:05 Seg Neuts % (Manual) 96.0 % (40.0-70.0) H 01/03/19 17:16 0 % 01/03/19 17:16 2.0 % (13.4-35.0) L 01/03/19 17:16 Reactive Lymphs % (Man) 0 % 01/03/19 17:16 2.0 % (0.0-7.3) 01/03/19 17:16 0 % (0.0-4.3) 01/03/19 17:16 0 % (0.0-1.8) 01/03/19 17:16 0 % 01/03/19 17:16 0 % 01/03/19 17:16 0 % 01/03/19 17:16 0 % 01/03/19 17:16 Nucleated RBC % Not Reportable 01/03/19 17:16 Seg Neutrophils # 4.5 K/mm3 (1.8-7.7) 01/25/19 05:05 Seg Neutrophils # Man 10.8 K/mm3 (1.8-7.7) H 01/03/19 17:16 Band Neutrophils # 0.0 K/mm3 01/03/19 17:16 0.2 K/mm3 (1.2-5.4) L 01/03/19 17:16 Abs React Lymphs (Man) 0.0 K/mm3 01/03/19 17:16 0.2 K/mm3 (0.0-0.8) 01/03/19 17:16 0.0 K/mm3 (0.0-0.4) 01/03/19 17:16 0.0 K/mm3 (0.0-0.1) 01/03/19 17:16 0.0 K/mm3 01/03/19 17:16 0.0 K/mm3 01/03/19 17:16 0.0 K/mm3 01/03/19 17:16 Blast Cells # 0.0 K/mm3 01/03/19 17:16 WBC Morphology Not Reportable 01/03/19 17:16 Hypersegmented Neuts Not Reportable 01/03/19 17:16 Hyposegmented Neuts Not Reportable 01/03/19 17:16 Hypogranular Neuts Not Reportable 01/03/19 17:16 Not Reportable 01/03/19 17:16 Not Reportable 01/03/19 17:16 Not Reportable 01/03/19 17:16 Not Reportable 01/03/19 17:16 Not Reportable 01/03/19 17:16 Not Reportable 01/03/19 17:16 Consistent w auto 01/03/19 17:16 Not Reportable 01/03/19 17:16 Plt Clumps, EDTA Not Reportable 01/03/19 17:16 Not Reportable 01/03/19 17:16 Not Reportable 01/03/19 17:16 Not Reportable 01/03/19 17:16 Plt Morphology Comment Not Reportable 01/03/19 17:16 RBC Morphology Not Reportable 01/03/19 17:16 Dimorphic RBCs Not Reportable 01/03/19 17:16 Not Reportable 01/03/19 17:16 1+ 01/03/19 17:16 Few 01/03/19 17:16 1+ 01/03/19 17:16 Not Reportable 01/03/19 17:16 Not Reportable 01/03/19 17:16 Not Reportable 01/03/19 17:16 Not Reportable 01/03/19 17:16 Not Reportable 01/03/19 17:16 Few 01/03/19 17:16 Not Reportable 01/03/19 17:16 Few 01/03/19 17:16 Not Reportable 01/03/19 17:16 Not Reportable 01/03/19 17:16 Not Reportable 01/03/19 17:16 Not Reportable 01/03/19 17:16 Not Reportable 01/03/19 17:16 Not Reportable 01/03/19 17:16 Not Reportable 01/03/19 17:16 Acanthocytes (Spur) Not Reportable 01/03/19 17:16 Rouleaux Not Reportable 01/03/19 17:16 Not Reportable 01/03/19 17:16 Not Reportable 01/03/19 17:16 Not Reportable 01/03/19 17:16 Not Reportable 01/03/19 17:16 Hem Pathologist Commnt No 01/03/19 17:16 PT 18.0 Sec. (12.2-14.9) H 01/02/19 05:39 INR 1.39 (0.87-1.13) H 01/02/19 05:39 Sodium 138 mmol/L (137-145) 01/30/19 14:49 Potassium 3.9 mmol/L (3.6-5.0) 01/30/19 14:49 Chloride 99.4 mmol/L (98-107) 01/30/19 14:49 Carbon Dioxide 33 mmol/L (22-30) H 01/30/19 14:49 10 mmol/L 01/30/19 14:49 BUN 22 mg/dL (9-20) H 01/30/19 14:49 2.1 mg/dL (0.8-1.5) H 01/30/19 14:49 Estimated GFR 39 ml/min 01/30/19 14:49 10 % 01/30/19 14:49 Glucose 107 mg/dL (75-100) H 01/30/19 14:49 POC Glucose 125 (70-105) H 02/03/19 06:59 < 4.2 % (4-6) 12/26/18 17:12 Lactic Acid 1.10 mmol/L (0.7-2.0) 12/27/18 07:04 Calcium 9.5 mg/dL (8.4-10.2) 01/30/19 14:49 Phosphorus 2.90 mg/dL (2.5-4.5) D 01/05/19 04:56 Magnesium 2.00 mg/dL (1.7-2.3) 01/05/19 04:56 0.20 mg/dL (0.1-1.2) 01/07/19 11:16 AST 12 units/L (5-40) 01/07/19 11:16 ALT < 5 units/L (7-56) L 01/07/19 11:16 92 units/L (35-129) 01/07/19 11:16 29 units/L (55-170) L 12/26/18 17:12 0.201 ng/mL (0.00-0.029) H* 01/21/19 08:05 5.7 g/dL (6.3-8.2) L 01/07/19 11:16 2.0 g/dL (3.9-5) L 01/07/19 11:16 0.5 % 01/07/19 11:16 Triglycerides 46 mg/dL (2-149) 01/21/19 04:23 Cholesterol 64 mg/dL (50-199) 01/21/19 04:23 34 mg/dL (50-130) L 01/21/19 04:23 27 mg/dL (40-59) L 01/21/19 04:23 2.37 % 01/21/19 04:23 PTH Intact 178.6 pg/mL (15-65) H 01/01/19 17:32 Random Vancomycin 39.3 ug/mL (0-40.0) 02/03/19 08:02 Hepatitis A IgM Ab Non-reactive (NonReactive) 01/22/19 10:34 Hep Bs Antigen Non-reactive (Negative) 01/22/19 10:34 Hep B Core IgM Ab Non-reactive (NonReactive) 01/22/19 10:34 Non-reactive (NonReactive) 01/22/19 10:34 Blood Type O POSITIVE 01/16/19 15:06 Antibody Screen Negative 01/16/19 15:06 Crossmatch See Detail 01/16/19 15:06 Active Medications - Current Medications Current Medications: Generic Name Dose Route Start Last Admin Trade Name Freq PRN Reason Stop Dose Admin Lipase/Protease/Amylase 1 each 01/28/19 14:[address] 10,500 Unit FEEDTUBE PRN PRN For Clogged Feeding Tube Aspirin 81 mg 12/27/18 10:00 02/02/19 09:26 Halfprin Ec PO 81 mg DAILY SANCHEZ Administration Diltiazem HCl 60 mg 01/22/19 10:00 02/03/19 15:28 Cardizem PO Not Given BID SANCHEZ Diphenhydramine HCl 25 mg 01/26/19 05:54 01/29/19 22:18 Benadryl PO 25 mg Q6H PRN Administration Itching Epoetin Solitario 20,000 unit 01/05/19 11:03 02/03/19 13:45 Procrit IV 20,000 unit UMA PRN Administration hemodialysis Famotidine 20 mg 12/27/18 10:00 02/02/19 09:26 Pepcid PO 20 mg DAILY SANCHEZ Administration Folic Acid 1 mg 12/27/18 10:00 02/02/19 09:26 Folvite PO 1 mg DAILY SANCHEZ Administration Gabapentin 100 mg 12/26/18 22:00 02/02/19 21:32 Neurontin PO 100 mg QHS SANCHEZ Administration Heparin Sodium (Porcine) 5,000 unit 01/23/19 22:00 02/02/19 21:31 Heparin SUB-Q 5,000 unit Q12HR SANCHEZ Administration Hydralazine HCl 100 mg 12/26/18 22:00 02/03/19 05:49 Apresoline PO 100 mg Q8HR SANCHEZ Administration Meropenem 1,000 mg/ Sodium 100 mls @ 100 mls/hr 01/05/19 11:00 02/02/19 09:28 Chloride IV 02/16/19 10:59 100 mls/hr Q24HR SANCHEZ Administration Sodium Chloride 100 mls @ 999 mls/hr 01/19/19 09:29 Nacl 0.9% IV UMA PRN Hypotension Insulin Human Regular 0 units 01/14/19 00:00 02/03/19 07:42 Humulin R SUB-Q Not Given Q6HR [facility] Protocol Metoprolol Tartrate 100 mg 12/31/18 22:00 02/03/19 15:29 Lopressor PO Not Given BID [facility] Morphine Sulfate 2 mg 01/21/19 04:08 01/31/19 10:29 Morphine IV 2 mg Q4H PRN Administration Pain, Moderate (4-6) Nitroglycerin 0.4 mg 01/21/19 04:05 01/21/19 04:15 Nitrostat SL 0.4 mg .Q5MIN PRN Administration Chest Pain Oxycodone/Acetaminophen 1 tab 01/05/19 08:30 02/02/19 14:27 Percocet 5/325 PO 1 tab Q6H PRN Administration Pain, Moderate (4-6) Risperidone 0.5 mg 12/26/18 22:00 02/02/19 21:32 Risperdal PO 0.5 mg QHS SANCHEZ Administration Risperidone 1 mg 01/31/19 10:30 02/02/19 09:26 Risperdal PO 1 mg QAM SANCHEZ Administration Sertraline HCl 100 mg 12/27/18 10:00 02/02/19 09:26 Zoloft PO 100 mg QDAY SANCHEZ Administration Simple Syrup 15 ml 01/28/19 14:53 Simple Syrup FEEDTUBE PRN PRN Hypoglycemia Simple Syrup 30 ml 01/28/19 14:53 Simple Syrup FEEDTUBE PRN PRN Hypoglycemia Sodium Bicarbonate 325 mg 01/28/19 14:53 Sodium Bicarbonate FEEDTUBE PRN PRN For Clogged Feeding Tube Sodium Chloride 10 ml 12/26/18 22:00 02/02/19 21:32 Sodium Chloride Flush Syringe 10 Ml IV 10 ml BID SANCHEZ Administration Sodium Hypochlorite 1 applic 01/19/19 10:00 02/02/19 09:26 Dakin's Half Strength TP 1 applicatio QDAY SANCHEZ Administration Nutrition/Malnutrition Assess - Dietary Evaluation Nutrition/Malnutrition Findings: Nutrition Notes Start: 12/27/18 17:15 Freq: Status: Active Protocol: Document 01/30/19 16:21 RM (Rec: 01/30/19 16:25 RM [id number]) Nutrition Notes Initial or Follow up Reassessment Current Diagnosis CKD (stage V CKD),Diabetes, Sepsis,Hypertension Other Pertinent Diagnosis Necrotizing sacral decubitus ulcer with osteomyelitis Current Diet TF - Nepro at 45ml/hr Labs/Tests Reviewed Pertinent Medications Reviewed Height 5 ft 7 in Weight 89.9 kg [place] Body Weight (kg) 67.27 BMI 31.0 Subjective/Other Information Observed Nepro infusing at goal rate. Per nurse pt is tolerating TF. Burn Absent Trauma Absent #2 Nutrition Diagnosis Increased nutrient needs ( specify in comment below) Diagnosis Progress(for reassessment Continues documentation) #1 Nutrition Diagnosis Inadequate oral intake Diagnosis Progress(for reassessment Continues documentation) Is patient on ventilator? No Is Patient Ambulatory and/or Out of Bed No REE-([facility]-confined to bed) 1982.220 Kcal/Kg value to use for calculation 17 Approximate Energy Requirements Using 1528 kcal/Kg Calculation Used for Recommendations [facility] Additional Notes Pro needs 1.2-1.4g/k- 129g/day Fluid needs 1-1.5L/day Nutrition Intervention Nutrition Support: Continue Nepro at 45 ml/hr. Water flush of 150 mls q 4 hrs . Kcal 1,944 Protein (gm) 87 Fluid (mL) 785 Goal #1 TF tolerance Goal #2 TF to continue to meet at least 75% of calorie and protein needs Anticipated Discharge Needs: Nepro Follow-Up By: 02/06/19 Additional Comments Follow for TF tolerance
[2019-02-03] MEDS: PERCOCET 5/325 PO PRN ×2 (16:45→23:28)
[2019-02-03] MEDS: PEPCID PO SCH (16:45)
[2019-02-03] MEDS: MERREM 1,000 MG in NACL 0.9% 100 ML IV SCH (16:45)
[2019-02-03] MEDS: FOLVITE PO SCH (16:46)
[2019-02-03] MEDS: ZOLOFT PO SCH (16:46)
[2019-02-03] MEDS: HALFPRIN EC PO SCH (16:46)
[2019-02-03] MEDS: HEPARIN SUB-Q SCH ×2 (16:46→21:52)
[2019-02-03] MEDS: SODIUM CHLORIDE FLUSH SYRINGE 10 ML IV SCH ×2 (16:47→21:53)
[2019-02-03] MEDS: RisperDAL PO SCH ×2 (16:47→21:53)
[2019-02-03] MEDS ORDERED: NACL 0.9 (PRIMING MACHINE ONLY DIALYSIS) MC ONE (20:38)
[2019-02-03] MEDS: NEURONTIN PO SCH (21:53)
[2019-02-03] MEDS: BENADRYL PO PRN (23:28)
[2019-02-04] MEDS: HumuLIN R SUB-Q SCH ×4 (01:43→17:25)
[2019-02-04] MEDS: APRESOLINE PO SCH ×3 (05:23→21:20)
[2019-02-04 06:19] LABS: Basophils # (Auto) 0.1 K/mm3 (0.0-0.1); Basophils % (Auto) 1.4 % (0.0-1.8); Eosinophils # (Auto) 0.5 K/mm3 (0.0-0.4); Eosinophils % (Auto) 7.8 % (0.0-4.3); Hematocrit 25.9 % (35.5-45.6); Hemoglobin 8.3 gm/dl (11.8-15.2); Lymphocytes # (Auto) 0.8 K/mm3 (1.2-5.4); Lymphocytes % (Auto) 13.2 % (13.4-35.0); Mean Corpuscular HGB Conc 32 % (32-34); Mean Corpuscular Volume 89 fl (84-94); Monocytes # (Auto) 0.6 K/mm3 (0.0-0.8); Monocytes % (Auto) 9.7 % (0.0-7.3); Platelet Count 291 K/mm3 (140-440); Red Blood Count 2.92 M/mm3 (3.65-5.03); Red Cell Distribution Width 18.3 % (13.2-15.2)
[2019-02-04 06:41] LABS: Calcium 9.3 mg/dL (8.4-10.2)
[2019-02-04] MEDS ORDERED: K-DUR PO ONE (08:30)
[2019-02-04] MEDS: PEPCID PO SCH (09:46)
[2019-02-04] MEDS: LOPRESSOR PO SCH ×2 (09:46→21:20)
[2019-02-04] MEDS: FOLVITE PO SCH (09:46)
[2019-02-04] MEDS: HALFPRIN EC PO SCH (09:47)
[2019-02-04] MEDS: CARDIZEM PO SCH ×2 (09:47→21:20)
[2019-02-04] MEDS: RisperDAL PO SCH ×2 (09:47→21:20)
[2019-02-04] MEDS: ZOLOFT PO SCH (09:47)
[2019-02-04] MEDS: HEPARIN SUB-Q SCH ×2 (09:48→21:19)
[2019-02-04] MEDS: SODIUM CHLORIDE FLUSH SYRINGE 10 ML IV SCH ×2 (09:48→21:21)
[2019-02-04] MEDS: MERREM 1,000 MG in NACL 0.9% 100 ML IV SCH (10:58)
[2019-02-04] MEDS: DAKIN'S HALF STRENGTH TP SCH (10:59)
--- NOTE | 2019-02-04 12:15 | Progress Note ---
Subjective Principal diagnosis: afib Interval history: Patient was seen today for follow-up on multiple renal related issues Events of this hospitalization noted Currently on dialysis Saturday Status post diverting colostomy resting comfortably in bed Vitals labs intake output medications were reviewed Social history: Reviewed Allergies: Reviewed Family history: Reviewed Physical examination HEENT: Oral mucosa moist no pallor or icterus Neck: Supple no JVD Chest: Clear to auscultation anteriorly CVS: Regular rate and rhythm S1 and S2 heard Abdomen: Soft nontender no suprapubic masses no organomegaly appreciable Extremity: Dry skin less than 1+ peripheral edema Musculoskeletal: No joint effusion noted in knees and ankle Neurological: Alert awake Dermatology: No petechial rashes Psychiatry: No evidence of any agitation and aggression noted Assessment and plan; ESRD: Continue with hemodialysis Saturday Will periodically check the labs Will change dialysis prescription, 3.0 potassium potassium is currently 3.5, reduced dialysis time by 15 minutes He does have chronic upper extremity edema due to central venous catheter Current access is a central venous catheter which is working well Congestive heart failure fluid restriction, about 1200 mL per day Anemia: On erythropoietin 3 times a week Large decubitus sacral ulcer, Status post diverting colostomy January 30 hemoglobin 8.4 platelet count 340,000 potassium 3.9 BUN 22 creatinine 2.1 Overall prognosis guarded to poor We'll continue to follow and make recommendation from renal standpoint Objective - Vital Signs Vital signs: Vital Signs - 12hr 02/04/19 02/04/19 02/04/19 05:04 09:46 09:47 Temperature 97.8 F Pulse Rate 88 88 88 Respiratory 20 Rate Blood Pressure 133/69 133/69 O2 Sat by Pulse 100 Oximetry - Lab 02/04/19 06:10 02/04/19 06:10 Most recent lab results Calcium 9.3 mg/dL (8.4-10.2) 02/04/19 06:10 Phosphorus 2.90 mg/dL (2.5-4.5) D 01/05/19 04:56 Magnesium 2.00 mg/dL (1.7-2.3) 01/05/19 04:56 Medications & Allergies - Medications Allergies/Adverse Reactions: Allergies haloperidol [From Haldol] Adverse Reaction (Verified 03/13/18 12:10) Unknown haloperidol lactate [From Haldol] Adverse Reaction (Verified 03/13/18 12:10) Unknown Home Medications: Home Medications Medication Instructions Recorded Confirmed Last Taken Type risperiDONE [RisperDAL] 1 mg PO QAM 03/13/18 12/27/18 Unknown History Sertraline [Zoloft] 100 mg PO QDAY 08/26/18 12/27/18 Unknown History risperiDONE [RisperDAL] 0.5 mg PO HS 08/26/18 12/27/18 Unknown History Polyethylene Glycol 3350 [Miralax 17 gm PO QDAY #30 packet 11/05/18 12/27/18 Un known Rx 3350] Aspirin EC 81 mg PO DAILY #30 11/19/18 12/27/18 Unknown Rx Docusate Sodium [Colace CAP] 100 mg PO BID #60 11/19/18 12/27/18 Unknown Rx Folic Acid [Folvite] 1 mg PO DAILY #30 tab 11/19/18 12/27/18 Unknown Rx Famotidine [Pepcid] 20 mg PO DAILY tablet 12/08/18 12/27/18 Unknown Rx Gabapentin [Neurontin] 100 mg PO QHS capsule 12/08/18 12/27/18 Unknown Rx Metoprolol [Lopressor TAB] 50 mg PO BID 30 Days tablet 12/08/18 12/27/18 Unknown Rx Sevelamer Carbonate [Renvela] 800 mg PO TIDWM tablet 12/08/18 12/27/18 Unknown Rx hydrALAZINE [Apresoline TAB] 100 mg PO Q8HR #120 tablet 12/08/18 12/27/18 Unknown Rx Acetaminophen [Acetaminophen TAB] 650 mg PO Q12H PRN 12/15/18 12/27/18 Unknown History Amino Acids/Protein Hydrolys 30 ml PO BID 12/15/18 12/27/18 Unknown History [Pro-Stat Sugar Free Liquid] Glucagon,Human Recombinant 1 mg IJ Q15MIN PRN 12/15/18 12/27/18 Unknown History [Glucagon Emergency Kit] Insulin Aspart [NovoLOG 100 See Protocol SQ QWEEK 12/15/18 12/27/18 Unknown History UNITS/ML VIAL] Epoetin Solitario 10,000 Unit [Procrit] 10,000 unit IV UMA PRN vial 12/18/18 12/27/18 Unknown Rx Lispro Insulin [HumaLOG] 0 unit SUB-Q ACHS units 12/18/18 12/27/18 Unknown Rx risperiDONE [RisperDAL] 0.5 mg PO QHS tablet 12/18/18 12/27/18 Unknown Rx Meropenem [Merrem] 1,000 mg IV Q24HR vial 01/16/19 Unknown Rx Active Medications: Generic Name Dose Route Start Last Admin Trade Name Freq PRN Reason Stop Dose Admin Lipase/Protease/Amylase 1 each 01/28/19 14:53 Pancreaze 10,500 Unit FEEDTUBE PRN PRN For Clogged Feeding Tube Aspirin 81 mg 12/27/18 10:00 02/04/19 09:47 Halfprin Ec PO 81 mg DAILY SANCHEZ Administration Diltiazem HCl 60 mg 01/22/19 10:00 02/04/19 09:47 Cardizem PO 60 mg BID SANCHEZ Administration Diphenhydramine HCl 25 mg 01/26/19 05:54 02/03/19 23:28 Benadryl PO 25 mg Q6H PRN Administration Itching Epoetin Solitario 20,000 unit 01/05/19 11:03 02/03/19 13:45 Procrit IV 20,000 unit UMA PRN Administration hemodialysis Famotidine 20 mg 12/27/18 10:00 02/04/19 09:46 Pepcid PO 20 mg DAILY SANCHEZ Administration Folic Acid 1 mg 12/27/18 10:00 02/04/19 09:46 Folvite PO 1 mg DAILY SANCHEZ Administration Gabapentin 100 mg 12/26/18 22:00 02/03/19 21:53 Neurontin PO 100 mg QHS SANCHEZ Administration Heparin Sodium (Porcine) 5,000 unit 01/23/19 22:00 02/04/19 09:48 Heparin SUB-Q 5,000 unit Q12HR SANCHEZ Administration Hydralazine HCl 100 mg 12/26/18 22:00 02/04/19 05:23 Apresoline PO 100 mg Q8HR SANCHEZ Administration Meropenem 1,000 mg/ Sodium 100 mls @ 100 mls/hr 01/05/19 11:00 02/04/19 10:58 Chloride IV 02/16/19 10:59 100 mls/hr Q24HR SANCHEZ Administration Sodium Chloride 100 mls @ 999 mls/hr 01/19/19 09:29 Nacl 0.9% IV UMA PRN Hypotension Insulin Human Regular 0 units 01/14/19 00:00 02/04/19 05:24 Humulin R SUB-Q Not Given Q6HR [facility] Protocol Metoprolol Tartrate 100 mg 12/31/18 22:00 02/04/19 09:46 Lopressor PO 100 mg BID SANCHEZ Administration Morphine Sulfate 2 mg 01/21/19 04:08 01/31/19 10:29 Morphine IV 2 mg Q4H PRN Administration Pain, Moderate (4-6) Nitroglycerin 0.4 mg 01/21/19 04:05 01/21/19 04:15 Nitrostat SL 0.4 mg .Q5MIN PRN Administration Chest Pain Oxycodone/Acetaminophen 1 tab 01/05/19 08:30 02/03/19 23:28 Percocet 5/325 PO 1 tab Q6H PRN Administration Pain, Moderate (4-6) Risperidone 0.5 mg 12/26/18 22:00 02/03/19 21:53 Risperdal PO 0.5 mg QHS SANCHEZ Administration Risperidone 1 mg 01/31/19 10:30 02/04/19 09:47 Risperdal PO 1 mg QAM SANCHEZ Administration Sertraline HCl 100 mg 12/27/18 10:00 02/04/19 09:47 Zoloft PO 100 mg QDAY SANCHEZ Administration Simple Syrup 15 ml 01/28/19 14:53 Simple Syrup FEEDTUBE PRN PRN Hypoglycemia Simple Syrup 30 ml 01/28/19 14:53 Simple Syrup FEEDTUBE PRN PRN Hypoglycemia Sodium Bicarbonate 325 mg 01/28/19 14:53 Sodium Bicarbonate FEEDTUBE PRN PRN For Clogged Feeding Tube Sodium Chloride 10 ml 12/26/18 22:00 02/04/19 09:48 Sodium Chloride Flush Syringe 10 Ml IV 10 ml BID SANCHEZ Administration Sodium Hypochlorite 1 applic 01/19/19 10:00 02/04/19 10:59 Dakin's Half Strength TP 1 applicatio QDAY SANCHEZ Administration
--- NOTE | 2019-02-04 14:54 | Progress Note ---
Assessment and Plan Assessment and plan: --Hypokalemia: Replace per protocol with KCl, monitor electrolytes --Necrotizing Unstagable sacral decubitus ulcer with ostemomylitis On 01/01/2019 open excisional debridement of necrotic and infected sacral wound noted a large amount of necrotic tissue debrided and two abscess cavities at the caudad portion of the wound with a copious amount of purulent drainage which was drained. Wound cultures 01/02/2019 ESBL Kleb, MDR Ecoli and E raffinosus resistant to penicillin: On meropenam and vanc per ID. Consult Vascular surgery for central line placement, planned for diverting colostomy, family has agreed, Cardiology re-evaluated for surgery, input noted, high CV risk. Dr. Villela recommend [facility] [place], 01/08/19, now ongoing to run till 02/16/19. Further debridement done 01/14/19. he is medically stable awaiting placement. case management working on placement. --Severe Sepsis due to sacral decubitus ulcers and osteomyelitis; antibiotics and wound care --Acute on chronic Anemia of chronic disease: s/p total of 8 units PRBC, follow cbc- no occult GI bleed noted. GI input noted, No retroperitoneal bleed noted. Although 150cc Of blood loss documented during debridement, No further bleeding from sacral wound noted, Dakins moistened kerlex packing started Pt is s/p x1 DDVAP --Atypical Chest pain, now resolved, medical management --Nonspecific Elevated troponin: Cardiology evaluated conservative management --Metabolic encephalopathy due to underlying disease process, Supportive care --Acute systolic exacerbation of CHF EF 35-40% : treat via Ultrafiltration during HD --Afib with RVR: rate control only and optimize meds per Cardiology --ESRD needing dialysis: Nephology is managing, hemodialysis per schedule --Insulin dependent diabetes mellitus, A1c is 4.2: insulin was dc, Accu-Chek s liding scale coverage --Severe malnutrition /hypoalbuminemia with FTT: 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 Per discussion with Surgery and as documented by them "Very poor prognosis for wound healing. I do not feel wound will ever heal due to extensive nature, poor nutrition, bedbound status, among other comorbidities. Recommend hospice." Family not accepting at this time. Ok to dc to [place] when bed available. Plan of care reviewed with the patient's nurse and case management Would hold off on vac and continue dakins dressings to wound. May follow up in wound care center after dc. Brief history: Patient is a 63-year-old -[place] man from [facility] with a plethora of co-morbidities including blindness, CVA, CHF, PPM/ICD, loop recorder since 2012 that is MRI compatible, IDDM type 2, sepsis left foot ulcer, afib, ESRD with complications on HD TTS, hypertension, AOCD and GERD who presented to [facility] with altered sensorium and decreased responsiveness. Decreased responsive and not eating at all for 2 days. Patient has failure to thrive, altered mentation and weight loss of 20 pounds since 12/08/2018. History Interval history: Patient seen and examined in his room this morning medical records reviewed Patient feels better no new complaints, legally blind Responding appropriately, not in acute distress Vital signs reviewed Hospitalist Physical - Constitutional Vitals: Temp Pulse Resp BP Pulse Ox 98.4 F 87 18 149/84 99 02/04/19 12:30 02/04/19 12:30 02/04/19 12:30 02/04/19 12:30 02/04/19 12:30 General appearance: Present: no acute distress, well-nourished, obese - EENT Eyes: Present: PERRL, EOM intact - Neck Neck: Present: supple, normal ROM - Respiratory Respiratory effort: normal Respiratory: bilateral: diminished, negative: rales, rhonchi, wheezing - Cardiovascular Rhythm: regular Heart Sounds: Present: S1 & S2 - Extremities Extremities: no ischemia, No edema - Abdominal General gastrointestinal: soft, non-tender, non-distended, normal bowel sounds - Integumentary Integumentary: Present: clear, warm - Psychiatric Psychiatric: appropriate mood/affect - Neurologic Neurologic: CNII-XII intact, moves all extremities Results - Labs CBC & Chem 7: 02/04/19 06:10 02/04/19 06:10 Labs: Laboratory Last Values WBC 6.1 K/mm3 (4.5-11.0) 02/04/19 06:10 RBC 2.92 M/mm3 (3.65-5.03) L 02/04/19 06:10 Hgb 8.3 gm/dl (11.8-15.2) L 02/04/19 06:10 Hct 25.9 % (35.5-45.6) L 02/04/19 06:10 MCV 89 fl (84-94) 02/04/19 06:10 MCH 29 pg (28-32) 02/04/19 06:10 MCHC 32 % (32-34) 02/04/19 06:10 RDW 18.3 % (13.2-15.2) H 02/04/19 06:10 Plt Count 291 K/mm3 (140-440) 02/04/19 06:10 Lymph % (Auto) 13.2 % (13.4-35.0) L 02/04/19 06:10 Evangeline % (Auto) 9.7 % (0.0-7.3) H 02/04/19 06:10 Eos % (Auto) 7.8 % (0.0-4.3) H 02/04/19 06:10 Baso % (Auto) 1.4 % (0.0-1.8) 02/04/19 06:10 Lymph # 0.8 K/mm3 (1.2-5.4) L 02/04/19 06:10 Evangeline # 0.6 K/mm3 (0.0-0.8) 02/04/19 06:10 Eos # 0.5 K/mm3 (0.0-0.4) H 02/04/19 06:10 Baso # 0.1 K/mm3 (0.0-0.1) 02/04/19 06:10 Add Manual Diff Complete 01/03/19 17:16 Total Counted 100 01/03/19 17:16 Seg Neutrophils % 67.9 % (40.0-70.0) 02/04/19 06:10 Seg Neuts % (Manual) 96.0 % (40.0-70.0) H 01/03/19 17:16 0 % 01/03/19 17:16 2.0 % (13.4-35.0) L 01/03/19 17:16 Reactive Lymphs % (Man) 0 % 01/03/19 17:16 2.0 % (0.0-7.3) 01/03/19 17:16 0 % (0.0-4.3) 01/03/19 17:16 0 % (0.0-1.8) 01/03/19 17:16 0 % 01/03/19 17:16 0 % 01/03/19 17:16 0 % 01/03/19 17:16 0 % 01/03/19 17:16 Nucleated RBC % Not Reportable 01/03/19 17:16 Seg Neutrophils # 4.1 K/mm3 (1.8-7.7) 02/04/19 06:10 Seg Neutrophils # Man 10.8 K/mm3 (1.8-7.7) H 01/03/19 17:16 Band Neutrophils # 0.0 K/mm3 01/03/19 17:16 0.2 K/mm3 (1.2-5.4) L 01/03/19 17:16 Abs React Lymphs (Man) 0.0 K/mm3 01/03/19 17:16 0.2 K/mm3 (0.0-0.8) 01/03/19 17:16 0.0 K/mm3 (0.0-0.4) 01/03/19 17:16 0.0 K/mm3 (0.0-0.1) 01/03/19 17:16 0.0 K/mm3 01/03/19 17:16 0.0 K/mm3 01/03/19 17:16 0.0 K/mm3 01/03/19 17:16 Blast Cells # 0.0 K/mm3 01/03/19 17:16 WBC Morphology Not Reportable 01/03/19 17:16 Hypersegmented Neuts Not Reportable 01/03/19 17:16 Hyposegmented Neuts Not Reportable 01/03/19 17:16 Hypogranular Neuts Not Reportable 01/03/19 17:16 Not Reportable 01/03/19 17:16 Not Reportable 01/03/19 17:16 Not Reportable 01/03/19 17:16 Not Reportable 01/03/19 17:16 Not Reportable 01/03/19 17:16 Not Reportable 01/03/19 17:16 Consistent w auto 01/03/19 17:16 Not Reportable 01/03/19 17:16 Plt Clumps, EDTA Not Reportable 01/03/19 17:16 Not Reportable 01/03/19 17:16 Not Reportable 01/03/19 17:16 Not Reportable 01/03/19 17:16 Plt Morphology Comment Not Reportable 01/03/19 17:16 RBC Morphology Not Reportable 01/03/19 17:16 Dimorphic RBCs Not Reportable 01/03/19 17:16 Not Reportable 01/03/19 17:16 1+ 01/03/19 17:16 Few 01/03/19 17:16 1+ 01/03/19 17:16 Not Reportable 01/03/19 17:16 Not Reportable 01/03/19 17:16 Not Reportable 01/03/19 17:16 Not Reportable 01/03/19 17:16 Not Reportable 01/03/19 17:16 Few 01/03/19 17:16 Not Reportable 01/03/19 17:16 Few 01/03/19 17:16 Not Reportable 01/03/19 17:16 Not Reportable 01/03/19 17:16 Not Reportable 01/03/19 17:16 Not Reportable 01/03/19 17:16 Not Reportable 01/03/19 17:16 Not Reportable 01/03/19 17:16 Not Reportable 01/03/19 17:16 Acanthocytes (Spur) Not Reportable 01/03/19 17:16 Rouleaux Not Reportable 01/03/19 17:16 Not Reportable 01/03/19 17:16 Not Reportable 01/03/19 17:16 Not Reportable 01/03/19 17:16 Not Reportable 01/03/19 17:16 Hem Pathologist Commnt No 01/03/19 17:16 PT 18.0 Sec. (12.2-14.9) H 01/02/19 05:39 INR 1.39 (0.87-1.13) H 01/02/19 05:39 Sodium 134 mmol/L (137-145) L 02/04/19 06:10 Potassium 3.5 mmol/L (3.6-5.0) L 02/04/19 06:10 Chloride 97.4 mmol/L (98-107) L 02/04/19 06:10 Carbon Dioxide 30 mmol/L (22-30) 02/04/19 06:10 10 mmol/L 02/04/19 06:10 BUN 18 mg/dL (9-20) 02/04/19 06:10 2.0 mg/dL (0.8-1.5) H 02/04/19 06:10 Estimated GFR 41 ml/min 02/04/19 06:10 9 % 02/04/19 06:10 Glucose 100 mg/dL (75-100) 02/04/19 06:10 POC Glucose 127 (70-105) H 02/04/19 11:28 < 4.2 % (4-6) 12/26/18 17:12 Lactic Acid 1.10 mmol/L (0.7-2.0) 12/27/18 07:04 Calcium 9.3 mg/dL (8.4-10.2) 02/04/19 06:10 Phosphorus 2.90 mg/dL (2.5-4.5) D 01/05/19 04:56 Magnesium 2.00 mg/dL (1.7-2.3) 01/05/19 04:56 0.20 mg/dL (0.1-1.2) 01/07/19 11:16 AST 12 units/L (5-40) 01/07/19 11:16 ALT < 5 units/L (7-56) L 01/07/19 11:16 92 units/L (35-129) 01/07/19 11:16 29 units/L (55-170) L 12/26/18 17:12 0.201 ng/mL (0.00-0.029) H* 01/21/19 08:05 5.7 g/dL (6.3-8.2) L 01/07/19 11:16 2.0 g/dL (3.9-5) L 01/07/19 11:16 0.5 % 01/07/19 11:16 Triglycerides 46 mg/dL (2-149) 01/21/19 04:23 Cholesterol 64 mg/dL (50-199) 01/21/19 04:23 34 mg/dL (50-130) L 01/21/19 04:23 27 mg/dL (40-59) L 01/21/19 04:23 2.37 % 01/21/19 04:23 PTH Intact 178.6 pg/mL (15-65) H 01/01/19 17:32 Random Vancomycin 39.3 ug/mL (0-40.0) 02/03/19 08:02 Hepatitis A IgM Ab Non-reactive (NonReactive) 01/22/19 10:34 Hep Bs Antigen Non-reactive (Negative) 01/22/19 10:34 Hep B Core IgM Ab Non-reactive (NonReactive) 01/22/19 10:34 Non-reactive (NonReactive) 01/22/19 10:34 Blood Type O POSITIVE 01/16/19 15:06 Antibody Screen Negative 01/16/19 15:06 Crossmatch See Detail 01/16/19 15:06 Active Medications - Current Medications Current Medications: Generic Name Dose Route Start Last Admin Trade Name Freq PRN Reason Stop Dose Admin Lipase/Protease/Amylase 1 each 01/28/19 14:53 Pancreaze 10,500 Unit FEEDTUBE PRN PRN For Clogged Feeding Tube Aspirin 81 mg 12/27/18 10:00 02/04/19 09:47 Halfprin Ec PO 81 mg DAILY SANCHEZ Administration Diltiazem HCl 60 mg 01/22/19 10:00 02/04/19 09:47 Cardizem PO 60 mg BID SANCHEZ Administration Diphenhydramine HCl 25 mg 01/26/19 05:54 02/03/19 23:28 Benadryl PO 25 mg Q6H PRN Administration Itching Epoetin Solitario 20,000 unit 01/05/19 11:03 02/03/19 13:45 Procrit IV 20,000 unit UMA PRN Administration hemodialysis Famotidine 20 mg 12/27/18 10:00 02/04/19 09:46 Pepcid PO 20 mg DAILY SANCHEZ Administration Folic Acid 1 mg 12/27/18 10:00 02/04/19 09:46 Folvite PO 1 mg DAILY SANCHEZ Administration Gabapentin 100 mg 12/26/18 22:00 02/03/19 21:53 Neurontin PO 100 mg QHS SANCHEZ Administration Heparin Sodium (Porcine) 5,000 unit 01/23/19 22:00 02/04/19 09:48 Heparin SUB-Q 5,000 unit Q12HR SANCHEZ Administration Hydralazine HCl 100 mg 12/26/18 22:00 02/04/19 05:23 Apresoline PO 100 mg Q8HR SANCHEZ Administration Meropenem 1,000 mg/ Sodium 100 mls @ 100 mls/hr 01/05/19 11:00 02/04/19 10:58 Chloride IV 02/16/19 10:59 100 mls/hr Q24HR SANCHEZ Administration Sodium Chloride 100 mls @ 999 mls/hr 01/19/19 09:29 Nacl 0.9% IV UMA PRN Hypotension Insulin Human Regular 0 units 01/14/19 00:00 02/04/19 05:24 Humulin R SUB-Q Not Given Q6HR [facility] Protocol Metoprolol Tartrate 100 mg 12/31/18 22:00 02/04/19 09:46 Lopressor PO 100 mg BID SANCHEZ Administration Morphine Sulfate 2 mg 01/21/19 04:08 01/31/19 10:29 Morphine IV 2 mg Q4H PRN Administration Pain, Moderate (4-6) Nitroglycerin 0.4 mg 01/21/19 04:05 01/21/19 04:15 Nitrostat SL 0.4 mg .Q5MIN PRN Administration Chest Pain Oxycodone/Acetaminophen 1 tab 01/05/19 08:30 02/03/19 23:28 Percocet 5/325 PO 1 tab Q6H PRN Administration Pain, Moderate (4-6) Risperidone 0.5 mg 12/26/18 22:00 02/03/19 21:53 Risperdal PO 0.5 mg QHS SANCHEZ Administration Risperidone 1 mg 01/31/19 10:30 02/04/19 09:47 Risperdal PO 1 mg QAM SANCHEZ Administration Sertraline HCl 100 mg 12/27/18 10:00 02/04/19 09:47 Zoloft PO 100 mg QDAY SANCHEZ Administration Simple Syrup 15 ml 01/28/19 14:53 Simple Syrup FEEDTUBE PRN PRN Hypoglycemia Simple Syrup 30 ml 01/28/19 14:53 Simple Syrup FEEDTUBE PRN PRN Hypoglycemia Sodium Bicarbonate 325 mg 01/28/19 14:53 Sodium Bicarbonate FEEDTUBE PRN PRN For Clogged Feeding Tube Sodium Chloride 10 ml 12/26/18 22:00 02/04/19 09:48 Sodium Chloride Flush Syringe 10 Ml IV 10 ml BID SANCHEZ Administration Sodium Hypochlorite 1 applic 01/19/19 10:00 02/04/19 10:59 Dakin's Half Strength TP 1 applicatio QDAY SANCHEZ Administration Nutrition/Malnutrition Assess - Dietary Evaluation Nutrition/Malnutrition Findings: Nutrition Notes Start: 12/27/18 17:15 Freq: Status: Active Protocol: Document 01/30/19 16:21 RM (Rec: 01/30/19 16:25 RM [id number]) Nutrition Notes Initial or Follow up Reassessment Current Diagnosis CKD (stage V CKD),Diabetes, Sepsis,Hypertension Other Pertinent Diagnosis Necrotizing sacral decubitus ulcer with osteomyelitis Current Diet TF - Nepro at 45ml/hr Labs/Tests Reviewed Pertinent Medications Reviewed Height 5 ft 7 in Weight 89.9 kg [place] Body Weight (kg) 67.27 BMI 31.0 Subjective/Other Information Observed Nepro infusing at goal rate. Per nurse pt is tolerating TF. Burn Absent Trauma Absent #2 Nutrition Diagnosis Increased nutrient needs ( specify in comment below) Diagnosis Progress(for reassessment Continues documentation) #1 Nutrition Diagnosis Inadequate oral intake Diagnosis Progress(for reassessment Continues documentation) Is patient on ventilator? No Is Patient Ambulatory and/or Out of Bed No REE-([place]-St. Jeor-confined to bed) 1982.220 Kcal/Kg value to use for calculation 17 Approximate Energy Requirements Using 1528 kcal/Kg Calculation Used [facility] Recommendations [facility] Additional Notes Pro needs 1.2-1.4g/k- 129g/day Fluid needs 1-1.5L/day Nutrition Intervention Nutrition Support: Continue Nepro at 45 ml/hr. Water flush of 150 mls q 4 hrs . Kcal 1,944 Protein (gm) 87 Fluid (mL) 785 Goal #1 TF tolerance Goal #2 TF to continue to meet at least 75% of calorie and protein needs Anticipated Discharge Needs: Nepro Follow-Up By: 02/06/19 Additional Comments Follow for TF tolerance
[2019-02-04] MEDS: MORPHINE IV PRN (17:20)
[2019-02-04] MEDS: NEURONTIN PO SCH (21:19)
[2019-02-04] MEDS: BENADRYL PO PRN (21:20)
[2019-02-05] MEDS: HumuLIN R SUB-Q SCH ×4 (00:14→18:33)
[2019-02-05] MEDS: APRESOLINE PO SCH ×3 (06:41→22:42)
--- NOTE | 2019-02-05 09:00 | Progress Note ---
Subjective Principal diagnosis: afib Interval history: Patient was seen today for follow-up on multiple renal related issues Events of this hospitalization noted Currently on dialysis Saturday Status post diverting colostomy resting comfortably in bed Potassium is better Vitals labs intake output medications were reviewed Social history: Reviewed Allergies: Reviewed Family history: Reviewed Physical examination HEENT: Oral mucosa moist no pallor or icterus Neck: Supple no JVD Chest: Clear to auscultation anteriorly CVS: Regular rate and rhythm S1 and S2 heard Abdomen: Soft nontender no suprapubic masses no organomegaly appreciable Extremity: Dry skin less than 1+ peripheral edema Musculoskeletal: No joint effusion noted in knees and ankle Neurological: Alert awake Dermatology: No petechial rashes Psychiatry: No evidence of any agitation and aggression noted Assessment and plan; ESRD: Continue with hemodialysis Saturday Will periodically check the labs Hypokalemia is better dialysis prescription has been changed Current dialysis access is a central venous catheter which is working well Patient has limited vascular access Congestive heart failure fluid restriction, about 1200 mL per day Anemia: On erythropoietin 3 times a week Large decubitus sacral ulcer, Status post diverting colostomy Overall prognosis guarded to poor We'll continue to follow and make recommendation from renal standpoint Objective - Vital Signs Vital signs: Vital Signs - 12hr 02/04/19 02/04/19 02/05/19 21:11 21:20 06:32 Temperature 97.6 F 97.6 F Pulse Rate 105 H 80 75 Respiratory 16 16 Rate Blood Pressure 150/75 142/73 134/77 O2 Sat by Pulse 79 L 100 Oximetry 02/05/19 02/05/19 02/05/19 08:15 08:20 08:30 Temperature 97.7 F Pulse Rate 75 76 77 Respiratory 16 Rate Blood Pressure 124/74 114/67 128/69 O2 Sat by Pulse Oximetry - Lab 02/04/19 06:10 02/05/19 04:42 Most recent lab results Calcium 9.3 mg/dL (8.4-10.2) 02/04/19 06:10 Phosphorus 2.90 mg/dL (2.5-4.5) D 01/05/19 04:56 Magnesium 2.40 mg/dL (1.7-2.3) H 02/05/19 04:42 Medications & Allergies - Medications Allergies/Adverse Reactions: Allergies haloperidol [From Haldol] Adverse Reaction (Verified 03/13/18 12:10) Unknown haloperidol lactate [From Haldol] Adverse Reaction (Verified 03/13/18 12:10) Unknown Home Medications: Home Medications Medication Instructions Recorded Confirmed Last Taken Type risperiDONE [RisperDAL] 1 mg PO QAM 03/13/18 12/27/18 Unknown History Sertraline [Zoloft] 100 mg PO QDAY 08/26/18 12/27/18 Unknown History risperiDONE [RisperDAL] 0.5 mg PO HS 08/26/18 12/27/18 Unknown History Polyethylene Glycol 3350 [Miralax 17 gm PO QDAY #30 packet 11/05/18 12/27/18 Unknown Rx 3350] Aspirin EC 81 mg PO DAILY #30 11/19/18 12/27/18 Unknown Rx Docusate Sodium [Colace CAP] 100 mg PO BID #60 11/19/18 12/27/18 Unknown Rx Folic Acid [Folvite] 1 mg PO DAILY #30 tab 11/19/18 12/27/18 Unknown Rx Famotidine [Pepcid] 20 mg PO DAILY tablet 12/08/18 12/27/18 Unknown Rx Gabapentin [Neurontin] 100 mg PO QHS capsule 12/08/18 12/27/18 Unknown Rx Metoprolol [Lopressor TAB] 50 mg PO BID 30 Days tablet 12/08/18 12/27/18 Unknown Rx Sevelamer Carbonate [Renvela] 800 mg PO TIDWM tablet 12/08/18 12/27/18 Unknown Rx hydrALAZINE [Apresoline TAB] 100 mg PO Q8HR #120 tablet 12/08/18 12/27/18 Unknown Rx Acetaminophen [Acetaminophen TAB] 650 mg PO Q12H PRN 12/15/18 12/27/18 Unknown History Amino Acids/Protein Hydrolys 30 ml PO BID 12/15/18 12/27/18 Unknown History [Pro-Stat Sugar Free Liquid] Glucagon,Human Recombinant 1 mg IJ Q15MIN PRN 12/15/18 12/27/18 Unknown History [Glucagon Emergency Kit] Insulin Aspart [NovoLOG 100 See Protocol SQ QWEEK 12/15/18 12/27/18 Unknown History UNITS/ML VIAL] Epoetin Solitario 10,000 Unit [Procrit] 10,000 unit IV UMA PRN vial 12/18/18 12/27/18 Unknown Rx Lispro Insulin [HumaLOG] 0 unit SUB-Q ACHS units 12/18/18 12/27/18 Unknown Rx risperiDONE [RisperDAL] 0.5 mg PO QHS tablet 12/18/18 12/27/18 Unknown Rx Meropenem [Merrem] 1,000 mg IV Q24HR vial 01/16/19 Unknown Rx Active Medications: Generic Name Dose Route Start Last Admin Trade Name Freq PRN Reason Stop Dose Admin Lipase/Protease/Amylase 1 each 01/28/19 14:53 Pancreaze 10,500 Unit FEEDTUBE PRN PRN For Clogged Feeding Tube Aspirin 81 mg 12/27/18 10:00 02/04/19 09:47 Halfprin Ec PO 81 mg DAILY SANCHEZ Administration Diltiazem HCl 60 mg 01/22/19 10:00 02/04/19 21:20 Cardizem PO 60 mg BID SANCHEZ Administration Diphenhydramine HCl 25 mg 01/26/19 05:54 02/04/19 21:20 Benadryl PO 25 mg Q6H PRN Administration Itching Epoetin Solitario 20,000 unit 01/05/19 11:03 02/03/19 13:45 Procrit IV 20,000 unit UMA PRN Administration hemodialysis Famotidine 20 mg 12/27/18 10:00 02/04/19 09:46 Pepcid PO 20 mg DAILY SANCHEZ Administration Folic Acid 1 mg 12/27/18 10:00 02/04/19 09:46 Folvite PO 1 mg DAILY SANCHEZ Administration Gabapentin 100 mg 12/26/18 22:00 02/04/19 21:19 Neurontin PO 100 mg QHS SANCHEZ Administration Heparin Sodium (Porcine) 5,000 unit 01/23/19 22:00 02/04/19 21:19 Heparin SUB-Q 5,000 unit Q12HR SANCHEZ Administration Hydralazine HCl 100 mg 12/26/18 22:00 02/05/19 06:41 Apresoline PO 100 mg Q8HR SANCHEZ Administration Meropenem 1,000 mg/ Sodium 100 mls @ 100 mls/hr 01/05/19 11:00 02/04/19 10:58 Chloride IV 02/16/19 10:59 100 mls/hr Q24HR SANCHEZ Administration Sodium Chloride 100 mls @ 999 mls/hr 01/19/19 09:29 Nacl 0.9% IV UMA PRN Hypotension Insulin Human Regular 0 units 01/14/19 00:00 02/05/19 06:09 Humulin R SUB-Q Not Given Q6HR [facility] Protocol Metoprolol Tartrate 100 mg 12/31/18 22:00 02/04/19 21:20 Lopressor PO 100 mg BID SANCHEZ Administration Morphine Sulfate 2 mg 01/21/19 04:08 02/04/19 17:20 Morphine IV 2 mg Q4H PRN Administration Pain, Moderate (4-6) Nitroglycerin 0.4 mg 01/21/19 04:05 01/21/19 04:15 Nitrostat SL 0.4 mg .Q5MIN PRN Administration Chest Pain Oxycodone/Acetaminophen 1 tab 01/05/19 08:30 02/03/19 23:28 Percocet 5/325 PO 1 tab Q6H PRN Administration Pain, Moderate (4-6) Risperidone 0.5 mg 12/26/18 22:00 02/04/19 21:20 Risperdal PO 0.5 mg QHS SANCHEZ Administration Risperidone 1 mg 01/31/19 10:30 02/04/19 09:47 Risperdal PO 1 mg QAM SANCHEZ Administration Sertraline HCl 100 mg 12/27/18 10:00 02/04/19 09:47 Zoloft PO 100 mg QDAY SANCHEZ Administration Simple Syrup 15 ml 01/28/19 14:53 Simple Syrup FEEDTUBE PRN PRN Hypoglycemia Simple Syrup 30 ml 01/28/19 14:53 Simple Syrup FEEDTUBE PRN PRN Hypoglycemia Sodium Bicarbonate 325 mg 01/28/19 14:53 Sodium Bicarbonate FEEDTUBE PRN PRN For Clogged Feeding Tube Sodium Chloride 10 ml 12/26/18 22:00 02/04/19 21:21 Sodium Chloride Flush Syringe 10 Ml IV 10 ml BID SANCHEZ Administration Sodium Hypochlorite 1 applic 01/19/19 10:00 02/04/19 10:59 Dakin's Half Strength TP 1 applicatio QDAY SANCHEZ Administration
[2019-02-05] MEDS: PROCRIT IV PRN (10:43)
[2019-02-05] MEDS: CARDIZEM PO SCH ×2 (12:29→22:41)
[2019-02-05] MEDS: RisperDAL PO SCH ×2 (12:29→22:41)
[2019-02-05] MEDS: FOLVITE PO SCH (12:29)
[2019-02-05] MEDS: HALFPRIN EC PO SCH (12:29)
[2019-02-05] MEDS: LOPRESSOR PO SCH ×2 (12:29→22:42)
[2019-02-05] MEDS: PEPCID PO SCH (12:29)
[2019-02-05] MEDS: HEPARIN SUB-Q SCH ×2 (12:31→22:42)
[2019-02-05] MEDS: SODIUM CHLORIDE FLUSH SYRINGE 10 ML IV SCH ×2 (12:31→22:44)
[2019-02-05] MEDS: DAKIN'S HALF STRENGTH TP SCH (12:32)
[2019-02-05] MEDS: MERREM 1,000 MG in NACL 0.9% 100 ML IV SCH (12:33)
[2019-02-05] MEDS: ZOLOFT PO SCH (12:37)
--- NOTE | 2019-02-05 19:30 | Progress Note ---
Assessment and Plan Assessment and plan: --ESRD needing dialysis: Nephology is managing, hemodialysis per schedule --Hypokalemia: Replace per protocol with KCl, monitor electrolytes --Necrotizing Unstagable sacral decubitus ulcer with ostemomylitis On 01/01/2019 open excisional debridement of necrotic and infected sacral wound noted a large amount of necrotic tissue debrided and two abscess cavities at the caudad portion of the wound with a copious amount of purulent drainage which was drained. Wound cultures 01/02/2019 ESBL Kleb, MDR Ecoli and E raffinosus resistant to penicillin: On meropenam and vanc per ID. Consult Vascular surgery for central line placement, planned for diverting colostomy, family has agreed, Cardiology re-evaluated for surgery, input noted, high CV risk. Dr. Manohar Charles, 01/08/19, now ongoing to run till 02/16/19. Further debridement done 01/14/19. he is medically stable awaiting placement. case management working on placement. --Severe Sepsis due to sacral decubitus ulcers and osteomyelitis; antibiotics and wound care --Acute on chronic Anemia of chronic disease: s/p total of 8 units PRBC, follow cbc- no occult GI bleed noted. GI input noted, No retroperitoneal bleed noted. Although 150cc Of blood loss documented during debridement, No further bleeding from sacral wound noted, Dakins moistened kerlex packing started Pt is s/p x1 DDVAP --Atypical Chest pain, now resolved, medical management --Nonspecific Elevated troponin: Cardiology evaluated conservative management --Metabolic encephalopathy due to underlying disease process, Supportive care --Acute systolic exacerbation of CHF EF 35-40% : treat via Ultrafiltration during HD --Afib with RVR: rate control only and optimize meds per Cardiology --Insulin dependent diabetes mellitus, A1c is 4.2: insulin was dc, Accu-Chek s liding scale coverage --Severe malnutrition /hypoalbuminemia with FTT: 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 Per discussion with Surgery and as documented by them "Very poor prognosis for wound healing. I do not feel wound will ever heal due to extensive nature, poor nutrition, bedbound status, among other comorbidities. Recommend hospice." Family not accepting at this time. Ok to dc to [place] when bed available. Plan of care reviewed with the patient's nurse and case management Would hold off on vac and continue dakins dressings to wound. May follow up in wound care center after dc. Brief history: Patient is a 63-year-old -[place] man from [facility] with a plethora of co-morbidities including blindness, CVA, CHF, PPM/ICD, loop recorder since 2012 that is MRI compatible, IDDM type 2, sepsis left foot ulcer, afib, ESRD with complications on HD TTS, hypertension, AOCD and GERD who presented to [facility] with altered sensorium and decreased responsiveness. Decreased responsive and not eating at all for 2 days. Patient has failure to thrive, altered mentation and weight loss of 20 pounds since 12/08/2018. History Interval history: Patient seen and examined medical records reviewed Patient is suspected of 18 placement No new complaints Vital signs noted, receiving hemodialysis at the bedside Hospitalist Physical - Constitutional Vitals: Temp Pulse Resp BP Pulse Ox 98.6 F 77 20 139/71 99 02/05/19 17:30 02/05/19 17:30 02/05/19 17:30 02/05/19 17:30 02/05/19 17:30 General appearance: Present: no acute distress, well-nourished, obese - EENT Eyes: Present: PERRL, EOM intact - Neck Neck: Present: supple, normal ROM - Respiratory Respiratory effort: normal Respiratory: bilateral: diminished, negative: rales, rhonchi, wheezing - Cardiovascular Rhythm: regular Heart Sounds: Present: S1 & S2 - Extremities Extremities: no ischemia, No edema - Abdominal General gastrointestinal: soft, non-tender, non-distended, normal bowel sounds - Integumentary Integumentary: Present: clear, warm - Psychiatric Psychiatric: appropriate mood/affect - Neurologic Neurologic: moves all extremities, other Results - Labs CBC & Chem 7: 02/04/19 06:10 02/05/19 04:42 Labs: Laboratory Last Values WBC 6.1 K/mm3 (4.5-11.0) 02/04/19 06:10 RBC 2.92 M/mm3 (3.65-5.03) L 02/04/19 06:10 Hgb 8.3 gm/dl (11.8-15.2) L 02/04/19 06:10 Hct 25.9 % (35.5-45.6) L 02/04/19 06:10 MCV 89 fl (84-94) 02/04/19 06:10 MCH 29 pg (28-32) 02/04/19 06:10 MCHC 32 % (32-34) 02/04/19 06:10 RDW 18.3 % (13.2-15.2) H 02/04/19 06:10 Plt Count 291 K/mm3 (140-440) 02/04/19 06:10 Lymph % (Auto) 13.2 % (13.4-35.0) L 02/04/19 06:10 [place] % (Auto) 9.7 % (0.0-7.3) H 02/04/19 06:10 Eos % (Auto) 7.8 % (0.0-4.3) H 02/04/19 06:10 Baso % (Auto) 1.4 % (0.0-1.8) 02/04/19 06:10 Lymph # 0.8 K/mm3 (1.2-5.4) L 02/04/19 06:10 [place] # 0.6 K/mm3 (0.0-0.8) 02/04/19 06:10 Eos # 0.5 K/mm3 (0.0-0.4) H 02/04/19 06:10 Baso # 0.1 K/mm3 (0.0-0.1) 02/04/19 06:10 Add Manual Diff Complete 01/03/19 17:16 Total Counted 100 01/03/19 17:16 Seg Neutrophils % 67.9 % (40.0-70.0) 02/04/19 06:10 Seg Neuts % (Manual) 96.0 % (40.0-70.0) H 01/03/19 17:16 0 % 01/03/19 17:16 2.0 % (13.4-35.0) L 01/03/19 17:16 Reactive Lymphs % (Man) 0 % 01/03/19 17:16 2.0 % (0.0-7.3) 01/03/19 17:16 0 % (0.0-4.3) 01/03/19 17:16 0 % (0.0-1.8) 01/03/19 17:16 0 % 01/03/19 17:16 0 % 01/03/19 17:16 0 % 01/03/19 17:16 0 % 01/03/19 17:16 Nucleated RBC % Not Reportable 01/03/19 17:16 Seg Neutrophils # 4.1 K/mm3 (1.8-7.7) 02/04/19 06:10 Seg Neutrophils # Man 10.8 K/mm3 (1.8-7.7) H 01/03/19 17:16 Band Neutrophils # 0.0 K/mm3 01/03/19 17:16 0.2 K/mm3 (1.2-5.4) L 01/03/19 17:16 Abs React Lymphs (Man) 0.0 K/mm3 01/03/19 17:16 0.2 K/mm3 (0.0-0.8) 01/03/19 17:16 0.0 K/mm3 (0.0-0.4) 01/03/19 17:16 0.0 K/mm3 (0.0-0.1) 01/03/19 17:16 0.0 K/mm3 01/03/19 17:16 0.0 K/mm3 01/03/19 17:16 0.0 K/mm3 01/03/19 17:16 Blast Cells # 0.0 K/mm3 01/03/19 17:16 WBC Morphology Not Reportable 01/03/19 17:16 Hypersegmented Neuts Not Reportable 01/03/19 17:16 Hyposegmented Neuts Not Reportable 01/03/19 17:16 Hypogranular Neuts Not Reportable 01/03/19 17:16 Not Reportable 01/03/19 17:16 Not Reportable 01/03/19 17:16 Not Reportable 01/03/19 17:16 Not Reportable 01/03/19 17:16 Not Reportable 01/03/19 17:16 Not Reportable 01/03/19 17:16 Consistent w auto 01/03/19 17:16 Not Reportable 01/03/19 17:16 Plt Clumps, EDTA Not Reportable 01/03/19 17:16 Not Reportable 01/03/19 17:16 Not Reportable 01/03/19 17:16 Not Reportable 01/03/19 17:16 Plt Morphology Comment Not Reportable 01/03/19 17:16 RBC Morphology Not Reportable 01/03/19 17:16 Dimorphic RBCs Not Reportable 01/03/19 17:16 Not Reportable 01/03/19 17:16 1+ 01/03/19 17:16 Few 01/03/19 17:16 1+ 01/03/19 17:16 Not Reportable 01/03/19 17:16 Not Reportable 01/03/19 17:16 Not Reportable 01/03/19 17:16 Not Reportable 01/03/19 17:16 Not Reportable 01/03/19 17:16 Few 01/03/19 17:16 Not Reportable 01/03/19 17:16 Few 01/03/19 17:16 Not Reportable 01/03/19 17:16 Not Reportable 01/03/19 17:16 Not Reportable 01/03/19 17:16 Not Reportable 01/03/19 17:16 Not Reportable 01/03/19 17:16 Not Reportable 01/03/19 17:16 Not Reportable 01/03/19 17:16 Acanthocytes (Spur) Not Reportable 01/03/19 17:16 Rouleaux Not Reportable 01/03/19 17:16 Not Reportable 01/03/19 17:16 Not Reportable 01/03/19 17:16 Not Reportable 01/03/19 17:16 Not Reportable 01/03/19 17:16 Hem Pathologist Commnt No 01/03/19 17:16 PT 18.0 Sec. (12.2-14.9) H 01/02/19 05:39 INR 1.39 (0.87-1.13) H 01/02/19 05:39 Sodium 134 mmol/L (137-145) L 02/04/19 06:10 Potassium 4.4 mmol/L (3.6-5.0) D 02/05/19 04:42 Chloride 97.4 mmol/L (98-107) L 02/04/19 06:10 Carbon Dioxide 30 mmol/L (22-30) 02/04/19 06:10 10 mmol/L 02/04/19 06:10 BUN 18 mg/dL (9-20) 02/04/19 06:10 2.0 mg/dL (0.8-1.5) H 02/04/19 06:10 Estimated GFR 41 ml/min 02/04/19 06:10 9 % 02/04/19 06:10 Glucose 100 mg/dL (75-100) 02/04/19 06:10 POC Glucose 123 (70-105) H 02/05/19 12:50 < 4.2 % (4-6) 12/26/18 17:12 Lactic Acid 1.10 mmol/L (0.7-2.0) 12/27/18 07:04 Calcium 9.3 mg/dL (8.4-10.2) 02/04/19 06:10 Phosphorus 2.90 mg/dL (2.5-4.5) D 01/05/19 04:56 Magnesium 2.40 mg/dL (1.7-2.3) H 02/05/19 04:42 0.20 mg/dL (0.1-1.2) 01/07/19 11:16 AST 12 units/L (5-40) 01/07/19 11:16 ALT < 5 units/L (7-56) L 01/07/19 11:16 92 units/L (35-129) 01/07/19 11:16 29 units/L (55-170) L 12/26/18 17:12 0.201 ng/mL (0.00-0.029) H* 01/21/19 08:05 5.7 g/dL (6.3-8.2) L 01/07/19 11:16 2.0 g/dL (3.9-5) L 01/07/19 11:16 0.5 % 01/07/19 11:16 Triglycerides 46 mg/dL (2-149) 01/21/19 04:23 Cholesterol 64 mg/dL (50-199) 01/21/19 04:23 34 mg/dL (50-130) L 01/21/19 04:23 27 mg/dL (40-59) L 01/21/19 04:23 2.37 % 01/21/19 04:23 PTH Intact 178.6 pg/mL (15-65) H 01/01/19 17:32 Random Vancomycin 24.9 ug/mL (0-40.0) 02/05/19 09:10 Hepatitis A IgM Ab Non-reactive (NonReactive) 01/22/19 10:34 Hep Bs Antigen Non-reactive (Negative) 01/22/19 10:34 Hep B Core IgM Ab Non-reactive (NonReactive) 01/22/19 10:34 Non-reactive (NonReactive) 01/22/19 10:34 Blood Type O POSITIVE 01/16/19 15:06 Antibody Screen Negative 01/16/19 15:06 Crossmatch See Detail 01/16/19 15:06 Active Medications - Current Medications Current Medications: Generic Name Dose Route Start Last Admin Trade Name Freq PRN Reason Stop Dose Admin Lipase/Protease/Amylase 1 each 01/28/19 14:53 Pancreaze 10,500 Unit FEEDTUBE PRN PRN For Clogged Feeding Tube Aspirin 81 mg 12/27/18 10:00 02/05/19 12:29 Halfprin Ec PO 81 mg DAILY SANCHEZ Administration Diltiazem HCl 60 mg 01/22/19 10:00 02/05/19 12:29 Cardizem PO 60 mg BID SANCHEZ Administration Diphenhydramine HCl 25 mg 01/26/19 05:54 02/04/19 21:20 Benadryl PO 25 mg Q6H PRN Administration Itching Epoetin Solitario 20,000 unit 01/05/19 11:03 02/05/19 10:43 Procrit IV 20,000 unit UMA PRN Administration hemodialysis Famotidine 20 mg 12/27/18 10:00 02/05/19 12:29 Pepcid PO 20 mg DAILY SANCHEZ Administration Folic Acid 1 mg 12/27/18 10:00 02/05/19 12:29 Folvite PO 1 mg DAILY SANCHEZ Administration Gabapentin 100 mg 12/26/18 22:00 02/04/19 21:19 Neurontin PO 100 mg QHS SANCHEZ Administration Heparin Sodium (Porcine) 5,000 unit 01/23/19 22:00 02/05/19 12:31 Heparin SUB-Q 5,000 unit Q12HR SANCHEZ Administration Hydralazine HCl 100 mg 12/26/18 22:00 02/05/19 13:10 Apresoline PO 100 mg Q8HR SANCHEZ Administration Meropenem 1,000 mg/ Sodium 100 mls @ 100 mls/hr 01/05/19 11:00 02/05/19 12:33 Chloride IV 02/16/19 10:59 100 mls/hr Q24HR SANCHEZ Administration Sodium Chloride 100 mls @ 999 mls/hr 01/19/19 09:29 Nacl 0.9% IV UMA PRN Hypotension Vancomycin HCl 500 mg/ Sodium 110 mls @ 66.667 mls/hr 02/07/19 18:00 Chloride IV 02/16/19 10:00 [email or web address] [facility] Insulin Human Regular 0 units 01/14/19 00:00 02/05/19 18:33 Humulin R SUB-Q Not Given Q6HR [facility] Protocol Metoprolol Tartrate 100 mg 12/31/18 22:00 02/05/19 12:29 Lopressor PO 100 mg BID SANCHEZ Administration Morphine Sulfate 2 mg 01/21/19 04:08 02/04/19 17:20 Morphine IV 2 mg Q4H PRN Administration Pain, Moderate (4-6) Nitroglycerin 0.4 mg 01/21/19 04:05 01/21/19 04:15 Nitrostat SL 0.4 mg .Q5MIN PRN Administration Chest Pain Oxycodone/Acetaminophen 1 tab 01/05/19 08:30 02/03/19 23:28 Percocet 5/325 PO 1 tab Q6H PRN Administration Pain, Moderate (4-6) Risperidone 0.5 mg 12/26/18 22:00 02/04/19 21:20 Risperdal PO 0.5 mg QHS SANCHEZ Administration Risperidone 1 mg 01/31/19 10:30 02/05/19 12:29 Risperdal PO 1 mg QAM SANCHEZ Administration Sertraline HCl 100 mg 12/27/18 10:00 02/05/19 12:37 Zoloft PO 100 mg QDAY SANCHEZ Administration Simple Syrup 15 ml 01/28/19 14:53 Simple Syrup FEEDTUBE PRN PRN Hypoglycemia Simple Syrup 30 ml 01/28/19 14:53 Simple Syrup FEEDTUBE PRN PRN Hypoglycemia Sodium Bicarbonate 325 mg 01/28/19 14:53 Sodium Bicarbonate FEEDTUBE PRN PRN For Clogged Feeding Tube Sodium Chloride 10 ml 12/26/18 22:00 02/05/19 12:31 Sodium Chloride Flush Syringe 10 Ml IV 10 ml BID SANCHEZ Administration Sodium Hypochlorite 1 applic 01/19/19 10:00 02/05/19 12:32 Dakin's Half Strength TP 1 applicatio QDAY SANCHEZ Administration Nutrition/Malnutrition Assess - Dietary Evaluation Nutrition/Malnutrition Findings: Nutrition Notes Start: 12/27/18 17:15 Freq: Status: Active Protocol: Document 01/30/19 16:21 RM (Rec: 01/30/19 16:25 RM [id number]) Nutrition Notes Initial or Follow up Reassessment Current Diagnosis CKD (stage V CKD),Diabetes, Sepsis,Hypertension Other Pertinent Diagnosis Necrotizing sacral decubitus ulcer with osteomyelitis Current Diet TF - Nepro at 45ml/hr Labs/Tests Reviewed Pertinent Medications Reviewed Height 5 ft 7 in Weight 89.9 kg [place] Body Weight (kg) 67.27 BMI 31.0 Subjective/Other Information Observed Nepro infusing at goal rate. Per nurse pt is tolerating TF. Burn Absent Trauma Absent #2 Nutrition Diagnosis Increased nutrient needs ( specify in comment below) Diagnosis Progress(for reassessment Continues documentation) #1 Nutrition Diagnosis Inadequate oral intake Diagnosis Progress(for reassessment Continues documentation) Is patient on ventilator? No Is Patient Ambulatory and/or Out of Bed No REE-([facility]-confined to bed) 1982.220 Kcal/Kg value to use for calculation 17 Approximate Energy Requirements Using 1528 kcal/Kg Calculation Used for Recommendations [facility] Additional Notes Pro needs 1.2-1.4g/k- 129g/day Fluid needs 1-1.5L/day Nutrition Intervention Nutrition Support: Continue Nepro at 45 ml/hr. Water flush of 150 mls q 4 hrs . Kcal 1,944 Protein (gm) 87 Fluid (mL) 785 Goal #1 TF tolerance Goal #2 TF to continue to meet at least 75% of calorie and protein needs Anticipated Discharge Needs: Nepro Follow-Up By: 02/06/19 Additional Comments Follow for TF tolerance
[2019-02-05] MEDS: NEURONTIN PO SCH (22:42)
[2019-02-05] MEDS: MORPHINE IV PRN (23:38)
[2019-02-06] MEDS: HumuLIN R SUB-Q SCH ×5 (00:13→18:27)
[2019-02-06] MEDS: APRESOLINE PO SCH ×3 (05:47→21:19)
--- NOTE | 2019-02-06 09:16 | Progress Note ---
Subjective Principal diagnosis: afib Interval history: Patient was seen today for follow-up on multiple renal related issues Events of this hospitalization noted Currently on hemodialysis Saturday Vitals labs intake output medications were reviewed Social history: Reviewed Allergies: Reviewed Family history: Reviewed Physical examination HEENT: Oral mucosa moist no pallor or icterus Neck: Supple no JVD Chest: Clear to auscultation anteriorly CVS: Regular rate and rhythm S1 and S2 heard Abdomen: Soft nontender no suprapubic masses no organomegaly appreciable Extremity: Dry skin less than 1+ peripheral edema Musculoskeletal: No joint effusion noted in knees and ankle Neurological: Alert awake Dermatology: No petechial rashes Psychiatry: No evidence of any agitation and aggression noted Assessment and plan; End-stage renal disease: Patient will continue with hemodialysis treatment 3 times a week as scheduled as tolerated monitor hemodynamics closely while on dialysis dialysis nurse to monitor blood pressure and make sure systolic blood pressure is not below 100 and heart rate is not above 100, He is currently on Saturday and and Saturdays schedule Status post diverting colostomy, has sacral decubitus ulcer, Hypokalemia: Improved Dialysis treatment time was reduced as we appear to have good solute control blood pressure control satisfactory, Anemia and end-stage renal disease: To monitor and follow, erythropoietin as required goal hemoglobin dialysis patients usually occurring 10 and 12 Secondary hyperparathyroidism: Monitor phosphorus and PTH and adjust binders as needed Diet and nutrition: Fluid restriction 1200 mL per day, high-protein diet may benefit from nutrition consultation , patient is protein intake should be 1.5 g per KG body weight Hypertension and volume continue to monitor, educated about fluid restriction sodium restriction, From dialysis standpoint as of February 04 hemoglobin is 8.3 potassium 3.5 follow-up was 4.4 BUN 18 creatinine 2.0 Prognosis very poor mortality risk is high due to ESRD status as well as many comorbidities Objective - Vital Signs Vital signs: Vital Signs - 12hr 02/05/19 02/05/19 02/05/19 22:00 22:38 22:41 Temperature 97.2 F L Pulse Rate 103 H Respiratory 20 20 Rate Respiratory 20 Rate [ Generalized] Blood Pressure 151/78 151/78 O2 Sat by Pulse 97 100 Oximetry 02/05/19 02/06/19 02/06/19 22:42 00:08 05:25 Temperature 97.6 F Pulse Rate 83 Respiratory 20 19 Rate Respiratory Rate [ Generalized] Blood Pressure 151/78 142/71 O2 Sat by Pulse 98 Oximetry - Lab 02/04/19 06:10 02/05/19 04:42 Most recent lab results Calcium 9.3 mg/dL (8.4-10.2) 02/04/19 06:10 Phosphorus 2.90 mg/dL (2.5-4.5) D 01/05/19 04:56 Magnesium 2.40 mg/dL (1.7-2.3) H 02/05/19 04:42 Medications & Allergies - Medications Allergies/Adverse Reactions: Allergies haloperidol [From Haldol] Adverse Reaction (Verified 03/13/18 12:10) Unknown haloperidol lactate [From Haldol] Adverse Reaction (Verified 03/13/18 12:10) Unknown Home Medications: Home Medications Medication Instructions Recorded Confirmed Last Taken Type risperiDONE [RisperDAL] 1 mg PO QAM 03/13/18 12/27/18 Unknown History Sertraline [Zoloft] 100 mg PO QDAY 08/26/18 12/27/18 Unknown History risperiDONE [RisperDAL] 0.5 mg PO HS 08/26/18 12/27/18 Unknown History Polyethylene Glycol 3350 [Miralax 17 gm PO QDAY #30 packet 11/05/18 12/27/18 Unknown Rx 3350] Aspirin EC 81 mg PO DAILY #30 11/19/18 12/27/18 Unknown Rx Docusate Sodium [Colace CAP] 100 mg PO BID #60 11/19/18 12/27/18 Unknown Rx Folic Acid [Folvite] 1 mg PO DAILY #30 tab 11/19/18 12/27/18 Unknown Rx Famotidine [Pepcid] 20 mg PO DAILY tablet 12/08/18 12/27/18 Unknown Rx Gabapentin [Neurontin] 100 mg PO QHS capsule 12/08/18 12/27/18 Unknown Rx Metoprolol [Lopressor TAB] 50 mg PO BID 30 Days tablet 12/08/18 12/27/18 Unknown Rx Sevelamer Carbonate [Renvela] 800 mg PO TIDWM tablet 12/08/18 12/27/18 Unknown Rx hydrALAZINE [Apresoline TAB] 100 mg PO Q8HR #120 tablet 12/08/18 12/27/18 Unknown Rx Acetaminophen [Acetaminophen TAB] 650 mg PO Q12H PRN 12/15/18 12/27/18 Unknown History Amino Acids/Protein Hydrolys 30 ml PO BID 12/15/18 12/27/18 Unknown History [Pro-Stat Sugar Free Liquid] Glucagon,Human Recombinant 1 mg IJ Q15MIN PRN 12/15/18 12/27/18 Unknown History [Glucagon Emergency Kit] Insulin Aspart [NovoLOG 100 See Protocol SQ QWEEK 12/15/18 12/27/18 Unknown History UNITS/ML VIAL] Epoetin Solitario 10,000 Unit [Procrit] 10,000 unit IV UMA PRN vial 12/18/18 12/27/18 Unknown Rx Lispro Insulin [HumaLOG] 0 unit SUB-Q ACHS units 12/18/18 12/27/18 Unknown Rx risperiDONE [RisperDAL] 0.5 mg PO QHS tablet 12/18/18 12/27/18 Unknown Rx Meropenem [Merrem] 1,000 mg IV Q24HR vial 01/16/19 Unknown Rx Active Medications: Generic Name Dose Route Start Last Admin Trade Name Fre PRN Reason Stop Dose Admin Lipase/Protease/Amylase 1 each 01/28/19 14:53 Pancreaze 10,500 Unit FEEDTUBE PRN PRN For Clogged Feeding Tube Aspirin 81 mg 12/27/18 10:00 02/05/19 12:29 Halfprin Ec PO 81 mg DAILY SANCHEZ Administration Diltiazem HCl 60 mg 01/22/19 10:00 02/05/19 22:41 Cardizem PO 60 mg BID SANCHEZ Administration Diphenhydramine HCl 25 mg 01/26/19 05:54 02/04/19 21:20 Benadryl PO 25 mg Q6H PRN Administration Itching Epoetin Solitario 20,000 unit 01/05/19 11:03 02/05/19 10:43 Procrit IV 20,000 unit UMA PRN Administration hemodialysis Famotidine 20 mg 12/27/18 10:00 02/05/19 12:29 Pepcid PO 20 mg DAILY SANCHEZ Administration Folic Acid 1 mg 12/27/18 10:00 02/05/19 12:29 Folvite PO 1 mg DAILY SANCHEZ Administration Gabapentin 100 mg 12/26/18 22:00 02/05/19 22:42 Neurontin PO 100 mg QHS SANCHEZ Administration Heparin Sodium (Porcine) 5,000 unit 01/23/19 22:00 02/05/19 22:42 Heparin SUB-Q 5,000 unit Q12HR SANCHEZ Administration Hydralazine HCl 100 mg 12/26/18 22:00 02/06/19 05:47 Apresoline PO 100 mg Q8HR SANCHEZ Administration Meropenem 1,000 mg/ Sodium 100 mls @ 100 mls/hr 01/05/19 11:00 02/05/19 12:33 Chloride IV 02/16/19 10:59 100 mls/hr Q24HR SANCHEZ Administration Sodium Chloride 100 mls @ 999 mls/hr 01/19/19 09:29 Nacl 0.9% IV UMA PRN Hypotension Vancomycin HCl 500 mg/ Sodium 110 mls @ 66.667 mls/hr 02/07/19 18:00 Chloride IV 02/16/19 10:00 [email or web address] [facility] Insulin Human Regular 0 units 01/14/19 00:00 02/06/19 07:00 Humulin R SUB-Q Not Given Q6HR [facility] Protocol Metoprolol Tartrate 100 mg 12/31/18 22:00 02/05/19 22:42 Lopressor PO 100 mg BID SANCHEZ Administration Morphine Sulfate 2 mg 01/21/19 04:08 02/05/19 23:38 Morphine IV 2 mg Q4H PRN Administration Pain, Moderate (4-6) Nitroglycerin 0.4 mg 01/21/19 04:05 01/21/19 04:15 Nitrostat SL 0.4 mg .Q5MIN PRN Administration Chest Pain Oxycodone/Acetaminophen 1 tab 01/05/19 08:30 02/03/19 23:28 Percocet 5/325 PO 1 tab Q6H PRN Administration Pain, Moderate (4-6) Risperidone 0.5 mg 12/26/18 22:00 02/05/19 22:41 Risperdal PO 0.5 mg QHS SANCHEZ Administration Risperidone 1 mg 01/31/19 10:30 02/05/19 12:29 Risperdal PO 1 mg QAM SANCHEZ Administration Sertraline HCl 100 mg 12/27/18 10:00 02/05/19 12:37 Zoloft PO 100 mg QDAY SANCHEZ Administration Simple Syrup 15 ml 01/28/19 14:53 Simple Syrup FEEDTUBE PRN PRN Hypoglycemia Simple Syrup 30 ml 07/10/19 14:53 Simple Syrup FEEDTUBE PRN PRN Hypoglycemia Sodium Bicarbonate 325 mg 01/28/19 14:53 Sodium Bicarbonate FEEDTUBE PRN PRN For Clogged Feeding Tube Sodium Chloride 10 ml 12/26/18 22:00 02/05/19 22:44 Sodium Chloride Flush Syringe 10 Ml IV 10 ml BID SANCHEZ Administration Sodium Hypochlorite 1 applic 01/19/19 10:00 02/05/19 12:32 Dakin's Half Strength TP 1 applicatio QDAY SANCHEZ Administration
[2019-02-06] MEDS: HEPARIN SUB-Q SCH ×2 (12:14→21:19)
[2019-02-06] MEDS: CARDIZEM PO SCH ×2 (12:15→21:18)
[2019-02-06] MEDS: HALFPRIN EC PO SCH (12:15)
[2019-02-06] MEDS: LOPRESSOR PO SCH ×2 (12:16→22:15)
[2019-02-06] MEDS: PEPCID PO SCH (12:16)
[2019-02-06] MEDS: FOLVITE PO SCH (12:17)
[2019-02-06] MEDS: RisperDAL PO SCH ×2 (12:33→21:18)
[2019-02-06] MEDS: MERREM 1,000 MG in NACL 0.9% 100 ML IV SCH (12:33)
[2019-02-06] MEDS: SODIUM CHLORIDE FLUSH SYRINGE 10 ML IV SCH ×2 (12:34→23:13)
[2019-02-06] MEDS: ZOLOFT PO SCH (12:39)
--- NOTE | 2019-02-06 13:22 | Progress Note ---
Assessment and Plan Assessment and plan: --ESRD needing dialysis: Nephology is managing, hemodialysis per schedule --Hypokalemia: Replace per protocol with KCl, monitor electrolytes --Necrotizing Unstagable sacral decubitus ulcer with ostemomylitis On 01/01/2019 open excisional debridement of necrotic and infected sacral wound noted a large amount of necrotic tissue debrided and two abscess cavities at the caudad portion of the wound with a copious amount of purulent drainage which was drained. Wound cultures 01/02/2019 ESBL Kleb, MDR Ecoli and E raffinosus resistant to penicillin: On meropenam and vanc per ID. Consult Vascular surgery for central line placement, planned for diverting colostomy, family has agreed, Cardiology re-evaluated for surgery, input noted, high CV risk. Dr. Manohar Charles, 01/08/19, now ongoing to run till 02/16/19. Further debridement done 01/14/19. he is medically stable awaiting placement. case management working on placement. --Severe Sepsis due to sacral decubitus ulcers and osteomyelitis; antibiotics and wound care --Acute on chronic Anemia of chronic disease: s/p total of 8 units PRBC, follow cbc- no occult GI bleed noted. GI input noted, No retroperitoneal bleed noted. Although 150cc Of blood loss documented during debridement, No further bleeding from sacral wound noted, Dakins moistened kerlex packing started Pt is s/p x1 DDVAP --Atypical Chest pain, now resolved, medical management --Nonspecific Elevated troponin: Cardiology evaluated conservative management --Metabolic encephalopathy due to underlying disease process, Supportive care --Acute systolic exacerbation of CHF EF 35-40% : treat via Ultrafiltration during HD --Afib with RVR: rate control only and optimize meds per Cardiology --Insulin dependent diabetes mellitus, A1c is 4.2: insulin was dc, Accu-Chek s liding scale coverage --Severe malnutrition /hypoalbuminemia with FTT: 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, pr manager following PEG placed on 01/02/19 --Hypertension: Well-controlled on current antihypertensives --h/o Peripheral neuropathy: Continue gabapentin --DVT prophylaxis On heparin and GI prophylaxis Very Poor prognosis discussed with family member Mr Jennifer Mims. Per discussion with Surgery and as documented by them "Very poor prognosis for wound healing. I do not feel wound will ever heal due to extensive nature, poor nutrition, bedbound status, among other comorbidities. Recommend hospice." Family not accepting at this time. Patient is clinically stable for discharge to SNF However [contact isolation beds not available at SNF] History Interval history: Patient seen and examined medical records reviewed Patient awaiting SNF placement[contact isolation beds not available at SNF] Patient is comfortable clinically blind No new complaints Vital signs reviewed Hospitalist Physical - Constitutional Vitals: Temp Pulse Resp BP Pulse Ox 97.9 F 103 H 20 134/77 98 02/06/19 11:42 02/06/19 12:16 02/06/19 11:42 02/06/19 12:16 02/06/19 11:42 General appearance: Present: no acute distress, well-nourished, obese - EENT Eyes: Present: PERRL, EOM intact - Neck Neck: Present: supple, normal ROM - Respiratory Respiratory effort: normal Respiratory: negative: rales, rhonchi, wheezing - Cardiovascular Rhythm: regular Heart Sounds: Present: S1 & S2 - Extremities Extremities: no ischemia, No edema - Abdominal General gastrointestinal: soft, non-tender, non-distended, normal bowel sounds, other (colostomy in place) - Integumentary Integumentary: Present: clear, warm - Psychiatric Psychiatric: cooperative - Neurologic Neurologic: moves all extremities, other (legally blind) Results - Labs CBC & Chem 7: 02/08/19 06:09 02/08/19 06:09 Labs: Laboratory Last Values WBC 6.1 K/mm3 (4.5-11.0) 02/04/19 06:10 RBC 2.92 M/mm3 (3.65-5.03) L 02/04/19 06:10 Hgb 8.3 gm/dl (11.8-15.2) L 02/04/19 06:10 Hct 25.9 % (35.5-45.6) L 02/04/19 06:10 MCV 89 fl (84-94) 02/04/19 06:10 MCH 29 pg (28-32) 02/04/19 06:10 MCHC 32 % (32-34) 02/04/19 06:10 RDW 18.3 % (13.2-15.2) H 02/04/19 06:10 Plt Count 291 K/mm3 (140-440) 02/04/19 06:10 Lymph % (Auto) 13.2 % (13.4-35.0) L 02/04/19 06:10 Cannon % (Auto) 9.7 % (0.0-7.3) H 02/04/19 06:10 Eos % (Auto) 7.8 % (0.0-4.3) H 02/04/19 06:10 Baso % (Auto) 1.4 % (0.0-1.8) 02/04/19 06:10 Lymph # 0.8 K/mm3 (1.2-5.4) L 02/04/19 06:10 Cannon # 0.6 K/mm3 (0.0-0.8) 02/04/19 06:10 Eos # 0.5 K/mm3 (0.0-0.4) H 02/04/19 06:10 Baso # 0.1 K/mm3 (0.0-0.1) 02/04/19 06:10 Add Manual Diff Complete 01/03/19 17:16 Total Counted 100 01/03/19 17:16 Seg Neutrophils % 67.9 % (40.0-70.0) 02/04/19 06:10 Seg Neuts % (Manual) 96.0 % (40.0-70.0) H 01/03/19 17:16 0 % 01/03/19 17:16 2.0 % (13.4-35.0) L 01/03/19 17:16 Reactive Lymphs % (Man) 0 % 01/03/19 17:16 2.0 % (0.0-7.3) 01/03/19 17:16 0 % (0.0-4.3) 01/03/19 17:16 0 % (0.0-1.8) 01/03/19 17:16 0 % 01/03/19 17:16 0 % 01/03/19 17:16 0 % 01/03/19 17:16 0 % 01/03/19 17:16 Nucleated RBC % Not Reportable 01/03/19 17:16 Seg Neutrophils # 4.1 K/mm3 (1.8-7.7) 02/04/19 06:10 Seg Neutrophils # Man 10.8 K/mm3 (1.8-7.7) H 01/03/19 17:16 Band Neutrophils # 0.0 K/mm3 01/03/19 17:16 0.2 K/mm3 (1.2-5.4) L 01/03/19 17:16 Abs React Lymphs (Man) 0.0 K/mm3 01/03/19 17:16 0.2 K/mm3 (0.0-0.8) 01/03/19 17:16 0.0 K/mm3 (0.0-0.4) 01/03/19 17:16 0.0 K/mm3 (0.0-0.1) 01/03/19 17:16 0.0 K/mm3 01/03/19 17:16 0.0 K/mm3 01/03/19 17:16 0.0 K/mm3 01/03/19 17:16 Blast Cells # 0.0 K/mm3 01/03/19 17:16 WBC Morphology Not Reportable 01/03/19 17:16 Hypersegmented Neuts Not Reportable 01/03/19 17:16 Hyposegmented Neuts Not Reportable 01/03/19 17:16 Hypogranular Neuts Not Reportable 01/03/19 17:16 Not Reportable 01/03/19 17:16 Not Reportable 01/03/19 17:16 Not Reportable 01/03/19 17:16 Not Reportable 01/03/19 17:16 Not Reportable 01/03/19 17:16 Not Reportable 01/03/19 17:16 Consistent w auto 01/03/19 17:16 Not Reportable 01/03/19 17:16 Plt Clumps, EDTA Not Reportable 01/03/19 17:16 Not Reportable 01/03/19 17:16 Not Reportable 01/03/19 17:16 Not Reportable 01/03/19 17:16 Plt Morphology Comment Not Reportable 01/03/19 17:16 RBC Morphology Not Reportable 01/03/19 17:16 Dimorphic RBCs Not Reportable 01/03/19 17:16 Not Reportable 01/03/19 17:16 1+ 01/03/19 17:16 Few 01/03/19 17:16 1+ 01/03/19 17:16 Not Reportable 01/03/19 17:16 Not Reportable 01/03/19 17:16 Not Reportable 01/03/19 17:16 Not Reportable 01/03/19 17:16 Not Reportable 01/03/19 17:16 Few 01/03/19 17:16 Not Reportable 01/03/19 17:16 Few 01/03/19 17:16 Not Reportable 01/03/19 17:16 Not Reportable 01/03/19 17:16 Not Reportable 01/03/19 17:16 Not Reportable 01/03/19 17:16 Not Reportable 01/03/19 17:16 Not Reportable 01/03/19 17:16 Not Reportable 01/03/19 17:16 Acanthocytes (Spur) Not Reportable 01/03/19 17:16 Rouleaux Not Reportable 01/03/19 17:16 Not Reportable 01/03/19 17:16 Not Reportable 01/03/19 17:16 Not Reportable 01/03/19 17:16 Not Reportable 01/03/19 17:16 Hem Pathologist Commnt No 01/03/19 17:16 PT 18.0 Sec. (12.2-14.9) H 01/02/19 05:39 INR 1.39 (0.87-1.13) H 01/02/19 05:39 Sodium 134 mmol/L (137-145) L 02/04/19 06:10 Potassium 4.4 mmol/L (3.6-5.0) D 02/05/19 04:42 Chloride 97.4 mmol/L (98-107) L 02/04/19 06:10 Carbon Dioxide 30 mmol/L (22-30) 02/04/19 06:10 10 mmol/L 02/04/19 06:10 BUN 18 mg/dL (9-20) 02/04/19 06:10 2.0 mg/dL (0.8-1.5) H 02/04/19 06:10 Estimated GFR 41 ml/min 02/04/19 06:10 9 % 02/04/19 06:10 Glucose 100 mg/dL (75-100) 02/04/19 06:10 POC Glucose 160 (70-105) H 02/06/19 11:51 < 4.2 % (4-6) 12/26/18 17:12 Lactic Acid 1.10 mmol/L (0.7-2.0) 12/27/18 07:04 Calcium 9.3 mg/dL (8.4-10.2) 02/04/19 06:10 Phosphorus 2.90 mg/dL (2.5-4.5) D 01/05/19 04:56 Magnesium 2.40 mg/dL (1.7-2.3) H 02/05/19 04:42 0.20 mg/dL (0.1-1.2) 01/07/19 11:16 AST 12 units/L (5-40) 01/07/19 11:16 ALT < 5 units/L (7-56) L 01/07/19 11:16 92 units/L (35-129) 01/07/19 11:16 29 units/L (55-170) L 12/26/18 17:12 0.201 ng/mL (0.00-0.029) H* 01/21/19 08:05 5.7 g/dL (6.3-8.2) L 01/07/19 11:16 2.0 g/dL (3.9-5) L 01/07/19 11:16 0.5 % 01/07/19 11:16 Triglycerides 46 mg/dL (2-149) 01/21/19 04:23 Cholesterol 64 mg/dL (50-199) 01/21/19 04:23 34 mg/dL (50-130) L 01/21/19 04:23 27 mg/dL (40-59) L 01/21/19 04:23 2.37 % 01/21/19 04:23 PTH Intact 178.6 pg/mL (15-65) H 01/01/19 17:32 Random Vancomycin 24.9 ug/mL (0-40.0) 02/05/19 09:10 Hepatitis A IgM Ab Non-reactive (NonReactive) 01/22/19 10:34 Hep Bs Antigen Non-reactive (Negative) 01/22/19 10:34 Hep B Core IgM Ab Non-reactive (NonReactive) 01/22/19 10:34 Non-reactive (NonReactive) 01/22/19 10:34 Blood Type O POSITIVE 01/16/19 15:06 Antibody Screen Negative 01/16/19 15:06 Crossmatch See Detail 01/16/19 15:06 Active Medications - Current Medications Current Medications: Generic Name Dose Route Start Last Admin Trade Name Freq PRN Reason Stop Dose Admin Lipase/Protease/Amylase 1 each 01/28/19 14:53 Pancreaze 10,500 Unit FEEDTUBE PRN PRN For Clogged Feeding Tube Aspirin 81 mg 12/27/18 10:00 02/06/19 12:15 Halfprin Ec PO 81 mg DAILY SANCHEZ Administration Diltiazem HCl 60 mg 01/22/19 10:00 02/06/19 12:15 Cardizem PO 60 mg BID SANCHEZ Administration Diphenhydramine HCl 25 mg 01/26/19 05:54 02/04/19 21:20 Benadryl PO 25 mg Q6H PRN Administration Itching Epoetin Solitario 20,000 unit 01/05/19 11:03 02/05/19 10:43 Procrit IV 20,000 unit UMA PRN Administration hemodialysis Famotidine 20 mg 12/27/18 10:00 02/06/19 12:16 Pepcid PO 20 mg DAILY SANCHEZ Administration Folic Acid 1 mg 12/27/18 10:00 02/06/19 12:17 Folvite PO 1 mg DAILY SANCHEZ Administration Gabapentin 100 mg 12/26/18 22:00 02/05/19 22:42 Neurontin PO 100 mg QHS SANCHEZ Administration Heparin Sodium (Porcine) 5,000 unit 01/23/19 22:00 02/06/19 12:14 Heparin SUB-Q 5,000 unit Q12HR SANCHEZ Administration Hydralazine HCl 100 mg 12/26/18 22:00 02/06/19 05:47 Apresoline PO 100 mg Q8HR SANCHEZ Administration Meropenem 1,000 mg/ Sodium 100 mls @ 100 mls/hr 01/05/19 11:00 02/06/19 12:33 Chloride IV 02/16/19 10:59 100 mls/hr Q24HR SANCHEZ Administration Sodium Chloride 100 mls @ 999 mls/hr 01/19/19 09:29 Nacl 0.9% IV UMA PRN Hypotension Vancomycin HCl 500 mg/ Sodium 110 mls @ 66.667 mls/hr 02/07/19 18:00 Chloride IV 02/16/19 10:00 [email or web address] SANCHEZ Insulin Human Regular 0 units 01/14/19 00:00 02/06/19 12:35 Humulin R SUB-Q 2 units Q6HR SANCHEZ Administration Protocol Metoprolol Tartrate 100 mg 12/31/18 22:00 02/06/19 12:16 Lopressor PO 100 mg BID SANCHEZ Administration Morphine Sulfate 2 mg 01/21/19 04:08 02/05/19 23:38 Morphine IV 2 mg Q4H PRN Administration Pain, Moderate (4-6) Nitroglycerin 0.4 mg 01/21/19 04:05 01/21/19 04:15 Nitrostat SL 0.4 mg .Q5MIN PRN Administration Chest Pain Oxycodone/Acetaminophen 1 tab 01/05/19 08:30 02/03/19 23:28 Percocet 5/325 PO 1 tab Q6H PRN Administration Pain, Moderate (4-6) Risperidone 0.5 mg 12/26/18 22:00 02/05/19 22:41 Risperdal PO 0.5 mg QHS SANCHEZ Administration Risperidone 1 mg 01/31/19 10:30 02/06/19 12:33 Risperdal PO 1 mg QAM SANCHEZ Administration Sertraline HCl 100 mg 12/27/18 10:00 02/06/19 12:39 Zoloft PO 100 mg QDAY SANCHEZ Administration Simple Syrup 15 ml 01/28/19 14:53 Simple Syrup FEEDTUBE PRN PRN Hypoglycemia Simple Syrup 30 ml 01/28/19 14:53 Simple Syrup FEEDTUBE PRN PRN Hypoglycemia Sodium Bicarbonate 325 mg 01/28/19 14:53 Sodium Bicarbonate FEEDTUBE PRN PRN For Clogged Feeding Tube Sodium Chloride 10 ml 12/26/18 22:00 02/06/19 12:34 Sodium Chloride Flush Syringe 10 Ml IV 10 ml BID SANCHEZ Administration Sodium Hypochlorite 1 applic 01/19/19 10:00 02/05/19 12:32 Dakin's Half Strength TP 1 applicatio QDAY SANCHEZ Administration Nutrition/Malnutrition Assess - Dietary Evaluation Nutrition/Malnutrition Findings: Nutrition Notes Start: 12/27/18 17:15 Freq: Status: Active Protocol: Document 01/30/19 16:21 RM (Rec: 01/30/19 16:25 RM [id number]) Nutrition Notes Initial or Follow up Reassessment Current Diagnosis CKD (stage V CKD),Diabetes, Sepsis,Hypertension Other Pertinent Diagnosis Necrotizing sacral decubitus ulcer with osteomyelitis Current Diet TF - Nepro at 45ml/hr Labs/Tests Reviewed Pertinent Medications Reviewed Height 5 ft 7 in Weight 89.9 kg [place] Body Weight (kg) 67.27 BMI 31.0 Subjective/Other Information Observed Nepro infusing at goal rate. Per nurse pt is tolerating TF. Burn Absent Trauma Absent #2 Nutrition Diagnosis Increased nutrient needs ( specify in comment below) Diagnosis Progress(for reassessment Continues documentation) #1 Nutrition Diagnosis Inadequate oral intake Diagnosis Progress(for reassessment Continues documentation) Is patient on ventilator? No Is Patient Ambulatory and/or Out of Bed No REE-([facility]-confined to bed) 1982.220 Kcal/Kg value to use for calculation 17 Approximate Energy Requirements Using 1528 kcal/Kg Calculation Used for Recommendations [facility] Additional Notes Pro needs 1.2-1.4g/k- 129g/day Fluid needs 1-1.5L/day Nutrition Intervention Nutrition Support: Continue Nepro at 45 ml/hr. Water flush of 150 mls q 4 hrs . Kcal 1,944 Protein (gm) 87 Fluid (mL) 785 Goal #1 TF tolerance Goal #2 TF to continue to meet at least 75% of calorie and protein needs Anticipated Discharge Needs: Nepro Follow-Up By: 02/06/19 Additional Comments Follow for TF tolerance
[2019-02-06] MEDS: DAKIN'S HALF STRENGTH TP SCH (18:03)
[2019-02-06] MEDS: NEURONTIN PO SCH (21:18)
--- NOTE | 2019-02-07 06:11 | Cat Scan Report ---
CT HEAD WITHOUT CONTRAST INDICATION : Altered mental status. TECHNIQUE: Axial, coronal and sagittal CT imaging was performed from the skull apex through the skul l base without contrast. All CT scans at this location are performed using CT dose reduction for ALA RA by means of automated exposure control. COMPARISON: CT of the head without contrast from 12/26/2018. FINDINGS: PARENCHYMA: No mass, midline shift, hemorrhage, extraaxial collection or acute territorial infarctio n. There is stable generalized atrophy with similar areas of low-attenuation along the subcortical/pe riventricular white matter that likely represent chronic microvascular ischemic changes. VENTRICLES: Stable enlargement secondary to atrophy. No acute abnormality. SOFT TISSUES: No acute abnormality of the orbits and included soft tissues. A right globe prosthesis is again seen. BONES: No acute osseous abnormality. SINUSES: No significant abnormality. ADDITIONAL FINDINGS: There is dense calcification of the distal internal carotid and vertebral arteri es. IMPRESSION: 1. No acute abnormality. 2. Additional stable chronic changes as above. Signer Name: Chris Ahumada MD Signed: 02/07/2019 6:06 AM Workstation Name: [id number]
--- NOTE | 2019-02-07 06:15 | Event Note ---
Date: 02/07/19 Nurse found pt to be lethargic and non-verbal. BP 142/75, HR 77, T 97.6; Stat CT Head ordered. CT Head did not reveal any acute abnormalities. FINDINGS: PARENCHYMA: No mass, midline shift, hemorrhage, extraaxial collection or acute territorial infarction. There is stable generalized atrophy with similar areas of low- attenuation along the subcortical/periventricular white matter that likely represent chronic microvascular ischemic changes. VENTRICLES: Stable enlargement secondary to atrophy. No acute abnormality. SOFT TISSUES: No acute abnormality of the orbits and included soft tissues. A right globe prosthesis is again seen. BONES: No acute osseous abnormality. SINUSES: No significant abnormality. ADDITIONAL FINDINGS: There is dense calcification of the distal internal carotid and vertebral arteries. IMPRESSION: 1. No acute abnormality. 2. Additional stable chronic changes as above.
[2019-02-07] MEDS: HumuLIN R SUB-Q SCH ×3 (07:16→18:15)
[2019-02-07] MEDS: APRESOLINE PO SCH ×3 (07:17→22:00)
[2019-02-07] MEDS: HEPARIN SUB-Q SCH ×2 (10:41→21:55)
--- NOTE | 2019-02-07 12:08 | Progress Note ---
Assessment and Plan Impression * End-stage renal disease on maintenance hemodialysis * Altered mental status * Sacral decubitus * Status post diverting colostomy * Hypokalemia * Failure to thrive * Hypophosphatemia * Malnutrition * Anemia secondary to ESRD * Hypomagnesemia Recommendations * Patient is undergoing hemodialysis at this time. Tolerating well. * Continue dialysis on TTS schedule for now * Antibiotic therapy and local wound care as per primary team * Avoid nephrotoxins * Epogen with dialysis * Adjust diet and meds for ESRD state * Awaiting placement Subjective Date of service: 02/07/19 Principal diagnosis: afib Interval history: Patient is currently undergoing dialysis. Tolerating well. Remains nonverbal. Objective - Vital Signs Vital signs: Vital Signs - 12hr 02/07/19 02/07/19 02/07/19 05:04 09:08 09:15 Temperature 97.6 F Pulse Rate 77 74 80 Respiratory 20 Rate Blood Pressure 142/75 150/74 146/81 O2 Sat by Pulse 100 Oximetry 02/07/19 02/07/19 02/07/19 09:30 09:35 09:45 Temperature 97.9 F Pulse Rate 81 78 81 Respiratory 20 Rate Blood Pressure 124/68 151/73 132/68 O2 Sat by Pulse Oximetry 02/07/19 02/07/19 02/07/19 10:00 10:15 10:30 Temperature Pulse Rate 81 81 82 Respiratory Rate Blood Pressure 138/76 158/81 132/72 O2 Sat by Pulse Oximetry 02/07/19 02/07/19 10:45 11:00 Temperature Pulse Rate 83 82 Respiratory Rate Blood Pressure 137/74 143/70 O2 Sat by Pulse Oximetry - General Appearance General appearance: well-developed, well-nourished, appears stated age EENT: ATNC Neck: no JVD, no thyromegaly, no carotid bruit, supple Respiratory: Present: Clear to Ascultation Cardiology: regular, normal heart rate Gastrointestinal: normoactive bowel sounds, other (PEG tube and colostomy bag in place) Integumentary: other (no edema) - Lab 02/04/19 06:10 02/05/19 04:42 Most recent lab results Calcium 9.3 mg/dL (8.4-10.2) 02/04/19 06:10 Phosphorus 2.90 mg/dL (2.5-4.5) D 01/05/19 04:56 Magnesium 2.40 mg/dL (1.7-2.3) H 02/05/19 04:42 Medications & Allergies - Medications Allergies/Adverse Reactions: Allergies haloperidol [From Haldol] Adverse Reaction (Verified 03/13/18 12:10) Unknown haloperidol lactate [From Haldol] Adverse Reaction (Verified 03/13/18 12:10) Unknown Home Medications: Home Medications Medication Instructions Recorded Confirmed Last Taken Type risperiDONE [RisperDAL] 1 mg PO QAM 03/13/18 12/27/18 Unknown History Sertraline [Zoloft] 100 mg PO QDAY 08/26/18 12/27/18 Unknown History risperiDONE [RisperDAL] 0.5 mg PO HS 08/26/18 12/27/18 Unknown History Polyethylene Glycol 3350 [Miralax 17 gm PO QDAY #30 packet 11/05/18 12/27/18 Unknown Rx 3350] Aspirin EC 81 mg PO DAILY #30 11/19/18 12/27/18 Unknown Rx Docusate Sodium [Colace CAP] 100 mg PO BID #60 11/19/18 12/27/18 Unknown Rx Folic Acid [Folvite] 1 mg PO DAILY #30 tab 11/19/18 12/27/18 Unknown Rx Famotidine [Pepcid] 20 mg PO DAILY tablet 12/08/18 12/27/18 Unknown Rx Gabapentin [Neurontin] 100 mg PO QHS capsule 12/08/18 12/27/18 Unknown Rx Metoprolol [Lopressor TAB] 50 mg PO BID 30 Days tablet 12/08/18 12/27/18 Unknown Rx Sevelamer Carbonate [Renvela] 800 mg PO TIDWM tablet 12/08/18 12/27/18 Unknown Rx hydrALAZINE [Apresoline TAB] 100 mg PO Q8HR #120 tablet 12/08/18 12/27/18 Unknown Rx Acetaminophen [Acetaminophen TAB] 650 mg PO Q12H PRN 12/15/18 12/27/18 Unknown History Amino Acids/Protein Hydrolys 30 ml PO BID 12/15/18 12/27/18 Unknown History [Pro-Stat Sugar Free Liquid] Glucagon,Human Recombinant 1 mg IJ Q15MIN PRN 12/15/18 12/27/18 Unknown History [Glucagon Emergency Kit] Insulin Aspart [NovoLOG 100 See Protocol SQ QWEEK 12/15/18 12/27/18 Unknown History UNITS/ML VIAL] Epoetin Solitario 10,000 Unit [Procrit] 10,000 unit IV UMA PRN vial 12/18/18 12/27/18 Unknown Rx Lispro Insulin [HumaLOG] 0 unit SUB-Q ACHS units 12/18/18 12/27/18 Unknown Rx risperiDONE [RisperDAL] 0.5 mg PO QHS tablet 12/18/18 12/27/18 Unknown Rx Meropenem [Merrem] 1,000 mg IV Q24HR vial 01/16/19 Unknown Rx Active Medications: Generic Name Dose Route Start Last Admin Trade Name Freq PRN Reason Stop Dose Admin Lipase/Protease/Amylase 1 each 01/28/19 14:53 Pancreaze 10,500 Unit FEEDTUBE PRN PRN For Clogged Feeding Tube Aspirin 81 mg 12/27/18 10:00 02/06/19 12:15 Halfprin Ec PO 81 mg DAILY SANCHEZ Administration Diltiazem HCl 60 mg 01/22/19 10:00 02/06/19 21:18 Cardizem PO 60 mg BID SANCHEZ Administration Diphenhydramine HCl 25 mg 01/26/19 05:54 02/04/19 21:20 Benadryl PO 25 mg Q6H PRN Administration Itching Epoetin Solitario 20,000 unit 01/05/19 11:03 02/05/19 10:43 Procrit IV 20,000 unit UMA PRN Administration hemodialysis Famotidine 20 mg 12/27/18 10:00 02/06/19 12:16 Pepcid PO 20 mg DAILY SANCHEZ Administration Folic Acid 1 mg 12/27/18 10:00 02/06/19 12:17 Folvite PO 1 mg DAILY SANCHEZ Administration Gabapentin 100 mg 12/26/18 22:00 02/06/19 21:18 Neurontin PO 100 mg QHS SANCHEZ Administration Heparin Sodium (Porcine) 5,000 unit 01/23/19 22:00 02/06/19 21:19 Heparin SUB-Q 5,000 unit Q12HR SANCHEZ Administration Hydralazine HCl 100 mg 12/26/18 22:00 02/07/19 07:17 Apresoline PO 100 mg Q8HR SANCHEZ Administration Meropenem 1,000 mg/ Sodium 100 mls @ 100 mls/hr 01/05/19 11:00 02/06/19 12:33 Chloride IV 02/16/19 10:59 100 mls/hr Q24HR SANCHEZ Administration Sodium Chloride 100 mls @ 999 mls/hr 01/19/19 09:29 Nacl 0.9% IV UMA PRN Hypotension Vancomycin HCl 500 mg/ Sodium 110 mls @ 66.667 mls/hr 02/07/19 18:00 Chloride IV 02/16/19 10:00 [email or web address] [facility] Insulin Human Regular 0 units 01/14/19 00:00 02/07/19 07:16 Humulin R SUB-Q Not Given Q6HR [facility] Protocol Metoprolol Tartrate 100 mg 12/31/18 22:00 02/06/19 22:15 Lopressor PO 100 mg BID SANCHEZ Administration Morphine Sulfate 2 mg 01/21/19 04:08 02/05/19 23:38 Morphine IV 2 mg Q4H PRN Administration Pain, Moderate (4-6) Nitroglycerin 0.4 mg 01/21/19 04:05 01/21/19 04:15 Nitrostat SL 0.4 mg .Q5MIN PRN Administration Chest Pain Oxycodone/Acetaminophen 1 tab 01/05/19 08:30 02/03/19 23:28 Percocet 5/325 PO 1 tab Q6H PRN Administration Pain, Moderate (4-6) Risperidone 0.5 mg 12/26/18 22:00 02/06/19 21:18 Risperdal PO 0.5 mg QHS SANCHEZ Administration Risperidone 1 mg 01/31/19 10:30 02/06/19 12:33 Risperdal PO 1 mg QAM SANCHEZ Administration Sertraline HCl 100 mg 12/27/18 10:00 02/06/19 12:39 Zoloft PO 100 mg QDAY SANCHEZ Administration Simple Syrup 15 ml 01/28/19 14:53 Simple Syrup FEEDTUBE PRN PRN Hypoglycemia Simple Syrup 30 ml 01/28/19 14:53 Simple Syrup FEEDTUBE PRN PRN Hypoglycemia Sodium Bicarbonate 325 mg 01/28/19 14:53 Sodium Bicarbonate FEEDTUBE PRN PRN For Clogged Feeding Tube Sodium Chloride 10 ml 12/26/18 22:00 02/06/19 23:13 Sodium Chloride Flush Syringe 10 Ml IV 10 ml BID SANCHEZ Administration Sodium Hypochlorite 1 applic 01/19/19 10:00 02/06/19 18:03 Dakin's Half Strength TP 1 applicatio QDAY SANCHEZ Administration
[2019-02-07] MEDS: PROCRIT IV PRN (12:13)
[2019-02-07] MEDS: MERREM 1,000 MG in NACL 0.9% 100 ML IV SCH (13:42)
[2019-02-07] MEDS: CARDIZEM PO SCH ×2 (13:42→21:54)
[2019-02-07] MEDS: HALFPRIN EC PO SCH (13:42)
[2019-02-07] MEDS: PEPCID PO SCH (13:42)
[2019-02-07] MEDS: FOLVITE PO SCH (13:43)
[2019-02-07] MEDS: DAKIN'S HALF STRENGTH TP SCH (13:43)
[2019-02-07] MEDS: LOPRESSOR PO SCH ×2 (13:43→21:53)
[2019-02-07] MEDS: SODIUM CHLORIDE FLUSH SYRINGE 10 ML IV SCH ×2 (13:44→22:00)
[2019-02-07] MEDS: RisperDAL PO SCH ×2 (13:46→21:50)
[2019-02-07] MEDS: ZOLOFT PO SCH (13:46)
--- NOTE | 2019-02-07 15:18 | Progress Note ---
Assessment and Plan Assessment and plan: --ESRD needing dialysis: Nephology is managing, hemodialysis per schedule --Hypokalemia: Replace per protocol with KCl, monitor electrolytes --Necrotizing Unstagable sacral decubitus ulcer with ostemomylitis On 01/01/2019 open excisional debridement of necrotic and infected sacral wound noted a large amount of necrotic tissue debrided and two abscess cavities at the caudad portion of the wound with a copious amount of purulent drainage which was drained. Wound cultures 01/02/2019 ESBL Kleb, MDR Ecoli and E raffinosus resistant to penicillin: On meropenam and vanc per ID. Consult Vascular surgery for central line placement, planned for diverting colostomy, family has agreed, Cardiology re-evaluated for surgery, input noted, high CV risk. Dr. Manohar Charles, 01/08/19, now ongoing to run till 02/16/19. Further debridement done 01/14/19. he is medically stable awaiting placement. case management working on placement. --Severe Sepsis due to sacral decubitus ulcers and osteomyelitis; antibiotics and wound care --Acute on chronic Anemia of chronic disease: s/p total of 8 units PRBC, follow cbc- no occult GI bleed noted. GI input noted, No retroperitoneal bleed noted. Although 150cc Of blood loss documented during debridement, No further bleeding from sacral wound noted, Dakins moistened kerlex packing started Pt is s/p x1 DDVAP --Atypical Chest pain, now resolved, medical management --Nonspecific Elevated troponin: Cardiology evaluated conservative management --Metabolic encephalopathy due to underlying disease process, Supportive care --Acute systolic exacerbation of CHF EF 35-40% : treat via Ultrafiltration during HD --Afib with RVR: rate control only and optimize meds per Cardiology --Insulin dependent diabetes mellitus, A1c is 4.2: insulin was dc, Accu-Chek s liding scale coverage --Severe malnutrition /hypoalbuminemia with FTT: 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, sort supervisor following PEG placed on 01/02/19 --Hypertension: Well-controlled on current antihypertensives --h/o Peripheral neuropathy: Continue gabapentin --DVT prophylaxis On heparin and GI prophylaxis Very Poor prognosis discussed with family member Mr Jennifer Mims. Per discussion with Surgery and as documented by them "Very poor prognosis for wound healing. I do not feel wound will ever heal due to extensive nature, poor nutrition, bedbound status, among other comorbidities. Recommend hospice." Family not accepting at this time. Patient is clinically stable for discharge to SNF However [contact isolation beds not available at SNF] History Interval history: Since seen and examined medical records reviewed Last night events noted, patient had brief episode of unresponsiveness Result immediately, CT head no acute abnormality noted Patient is receiving hemodialysis today at the bedside Alert and awake comfortable, legally blind Vital signs reviewed Hospitalist Physical - Constitutional Vitals: Temp Pulse Resp BP Pulse Ox 97.9 F 87 20 142/75 100 02/07/19 09:35 02/07/19 13:17 02/07/19 09:35 02/07/19 13:17 02/07/19 05:04 General appearance: Present: no acute distress, well-nourished, obese - EENT Eyes: Present: PERRL, EOM intact - Neck Neck: Present: supple, normal ROM - Respiratory Respiratory effort: normal Respiratory: bilateral: diminished, negative: rales, rhonchi, wheezing - Cardiovascular Rhythm: regular Heart Sounds: Present: S1 & S2 - Extremities Extremities: no ischemia Extremity abnormal: edema - Abdominal General gastrointestinal: soft, non-tender, non-distended, normal bowel sounds, other (colostomy in place) - Integumentary Integumentary: Present: clear, erythema (Stage IV sacral decubitus ulcer) - Psychiatric Psychiatric: other (response appropriately, blind) - Neurologic Neurologic: moves all extremities Results - Labs CBC & Chem 7: 02/04/19 06:10 02/05/19 04:42 Labs: Laboratory Last Values WBC 6.1 K/mm3 (4.5-11.0) 02/04/19 06:10 RBC 2.92 M/mm3 (3.65-5.03) L 02/04/19 06:10 Hgb 8.3 gm/dl (11.8-15.2) L 02/04/19 06:10 Hct 25.9 % (35.5-45.6) L 02/04/19 06:10 MCV 89 fl (84-94) 02/04/19 06:10 MCH 29 pg (28-32) 02/04/19 06:10 MCHC 32 % (32-34) 02/04/19 06:10 RDW 18.3 % (13.2-15.2) H 02/04/19 06:10 Plt Count 291 K/mm3 (140-440) 02/04/19 06:10 Lymph % (Auto) 13.2 % (13.4-35.0) L 02/04/19 06:10 Hood % (Auto) 9.7 % (0.0-7.3) H 02/04/19 06:10 Eos % (Auto) 7.8 % (0.0-4.3) H 02/04/19 06:10 Baso % (Auto) 1.4 % (0.0-1.8) 02/04/19 06:10 Lymph # 0.8 K/mm3 (1.2-5.4) L 02/04/19 06:10 Hood # 0.6 K/mm3 (0.0-0.8) 02/04/19 06:10 Eos # 0.5 K/mm3 (0.0-0.4) H 02/04/19 06:10 Baso # 0.1 K/mm3 (0.0-0.1) 02/04/19 06:10 Add Manual Diff Complete 01/03/19 17:16 Total Counted 100 01/03/19 17:16 Seg Neutrophils % 67.9 % (40.0-70.0) 02/04/19 06:10 Seg Neuts % (Manual) 96.0 % (40.0-70.0) H 01/03/19 17:16 0 % 01/03/19 17:16 2.0 % (13.4-35.0) L 01/03/19 17:16 Reactive Lymphs % (Man) 0 % 01/03/19 17:16 2.0 % (0.0-7.3) 01/03/19 17:16 0 % (0.0-4.3) 01/03/19 17:16 0 % (0.0-1.8) 01/03/19 17:16 0 % 01/03/19 17:16 0 % 01/03/19 17:16 0 % 01/03/19 17:16 0 % 01/03/19 17:16 Nucleated RBC % Not Reportable 01/03/19 17:16 Seg Neutrophils # 4.1 K/mm3 (1.8-7.7) 02/04/19 06:10 Seg Neutrophils # Man 10.8 K/mm3 (1.8-7.7) H 01/03/19 17:16 Band Neutrophils # 0.0 K/mm3 01/03/19 17:16 0.2 K/mm3 (1.2-5.4) L 01/03/19 17:16 Abs React Lymphs (Man) 0.0 K/mm3 01/03/19 17:16 0.2 K/mm3 (0.0-0.8) 01/03/19 17:16 0.0 K/mm3 (0.0-0.4) 01/03/19 17:16 0.0 K/mm3 (0.0-0.1) 01/03/19 17:16 0.0 K/mm3 01/03/19 17:16 0.0 K/mm3 01/03/19 17:16 0.0 K/mm3 01/03/19 17:16 Blast Cells # 0.0 K/mm3 01/03/19 17:16 WBC Morphology Not Reportable 01/03/19 17:16 Hypersegmented Neuts Not Reportable 01/03/19 17:16 Hyposegmented Neuts Not Reportable 01/03/19 17:16 Hypogranular Neuts Not Reportable 01/03/19 17:16 Not Reportable 01/03/19 17:16 Not Reportable 01/03/19 17:16 Not Reportable 01/03/19 17:16 Not Reportable 01/03/19 17:16 Not Reportable 01/03/19 17:16 Not Reportable 01/03/19 17:16 Consistent w auto 01/03/19 17:16 Not Reportable 01/03/19 17:16 Plt Clumps, EDTA Not Reportable 01/03/19 17:16 Not Reportable 01/03/19 17:16 Not Reportable 01/03/19 17:16 Not Reportable 01/03/19 17:16 Plt Morphology Comment Not Reportable 01/03/19 17:16 RBC Morphology Not Reportable 01/03/19 17:16 Dimorphic RBCs Not Reportable 01/03/19 17:16 Not Reportable 01/03/19 17:16 1+ 01/03/19 17:16 Few 01/03/19 17:16 1+ 01/03/19 17:16 Not Reportable 01/03/19 17:16 Not Reportable 01/03/19 17:16 Not Reportable 01/03/19 17:16 Not Reportable 01/03/19 17:16 Not Reportable 01/03/19 17:16 Few 01/03/19 17:16 Not Reportable 01/03/19 17:16 Few 01/03/19 17:16 Not Reportable 01/03/19 17:16 Not Reportable 01/03/19 17:16 Not Reportable 01/03/19 17:16 Not Reportable 01/03/19 17:16 Not Reportable 01/03/19 17:16 Not Reportable 01/03/19 17:16 Not Reportable 01/03/19 17:16 Acanthocytes (Spur) Not Reportable 01/03/19 17:16 Rouleaux Not Reportable 01/03/19 17:16 Not Reportable 01/03/19 17:16 Not Reportable 01/03/19 17:16 Not Reportable 01/03/19 17:16 Not Reportable 01/03/19 17:16 Hem Pathologist Commnt No 01/03/19 17:16 PT 18.0 Sec. (12.2-14.9) H 01/02/19 05:39 INR 1.39 (0.87-1.13) H 01/02/19 05:39 Sodium 134 mmol/L (137-145) L 02/04/19 06:10 Potassium 4.4 mmol/L (3.6-5.0) D 02/05/19 04:42 Chloride 97.4 mmol/L (98-107) L 02/04/19 06:10 Carbon Dioxide 30 mmol/L (22-30) 02/04/19 06:10 10 mmol/L 02/04/19 06:10 BUN 18 mg/dL (9-20) 02/04/19 06:10 2.0 mg/dL (0.8-1.5) H 02/04/19 06:10 Estimated GFR 41 ml/min 02/04/19 06:10 9 % 02/04/19 06:10 Glucose 100 mg/dL (75-100) 02/04/19 06:10 POC Glucose 134 (70-105) H 02/07/19 13:44 < 4.2 % (4-6) 12/26/18 17:12 Lactic Acid 1.10 mmol/L (0.7-2.0) 12/27/18 07:04 Calcium 9.3 mg/dL (8.4-10.2) 02/04/19 06:10 Phosphorus 2.90 mg/dL (2.5-4.5) D 01/05/19 04:56 Magnesium 2.40 mg/dL (1.7-2.3) H 02/05/19 04:42 0.20 mg/dL (0.1-1.2) 01/07/19 11:16 AST 12 units/L (5-40) 01/07/19 11:16 ALT < 5 units/L (7-56) L 01/07/19 11:16 92 units/L (35-129) 01/07/19 11:16 29 units/L (55-170) L 12/26/18 17:12 0.201 ng/mL (0.00-0.029) H* 01/21/19 08:05 5.7 g/dL (6.3-8.2) L 01/07/19 11:16 2.0 g/dL (3.9-5) L 01/07/19 11:16 0.5 % 01/07/19 11:16 Triglycerides 46 mg/dL (2-149) 01/21/19 04:23 Cholesterol 64 mg/dL (50-199) 01/21/19 04:23 34 mg/dL (50-130) L 01/21/19 04:23 27 mg/dL (40-59) L 01/21/19 04:23 2.37 % 01/21/19 04:23 PTH Intact 178.6 pg/mL (15-65) H 01/01/19 17:32 Random Vancomycin 24.9 ug/mL (0-40.0) 02/05/19 09:10 Hepatitis A IgM Ab Non-reactive (NonReactive) 01/22/19 10:34 Hep Bs Antigen Non-reactive (Negative) 01/22/19 10:34 Hep B Core IgM Ab Non-reactive (NonReactive) 01/22/19 10:34 Non-reactive (NonReactive) 01/22/19 10:34 Blood Type O POSITIVE 01/16/19 15:06 Antibody Screen Negative 01/16/19 15:06 Crossmatch See Detail 01/16/19 15:06 Active Medications - Current Medications Current Medications: Generic Name Dose Route Start Last Admin Trade Name Freq PRN Reason Stop Dose Admin Lipase/Protease/Amylase 1 each 01/28/19 14:53 Pancreaze 10,500 Unit FEEDTUBE PRN PRN For Clogged Feeding Tube Aspirin 81 mg 12/27/18 10:00 02/07/19 13:42 Halfprin Ec PO 81 mg DAILY SANCHEZ Administration Diltiazem HCl 60 mg 01/22/19 10:00 02/07/19 13:42 Cardizem PO 60 mg BID SANCHEZ Administration Diphenhydramine HCl 25 mg 01/26/19 05:54 02/04/19 21:20 Benadryl PO 25 mg Q6H PRN Administration Itching Epoetin Solitario 20,000 unit 01/05/19 11:03 02/07/19 12:13 Procrit IV 20,000 unit UMA PRN Administration hemodialysis Famotidine 20 mg 12/27/18 10:00 02/07/19 13:42 Pepcid PO 20 mg DAILY SANCHEZ Administration Folic Acid 1 mg 12/27/18 10:00 02/07/19 13:43 Folvite PO 1 mg DAILY SANCHEZ Administration Gabapentin 100 mg 12/26/18 22:00 02/06/19 21:18 Neurontin PO 100 mg QHS SANCHEZ Administration Heparin Sodium (Porcine) 5,000 unit 01/23/19 22:00 02/07/19 10:41 Heparin SUB-Q Not Given Q12HR [facility] Hydralazine HCl 100 mg 12/26/18 22:00 02/07/19 13:42 Apresoline PO 100 mg Q8HR SANCHEZ Administration Meropenem 1,000 mg/ Sodium 100 mls @ 100 mls/hr 01/05/19 11:00 02/07/19 13:42 Chloride IV 02/16/19 10:59 100 mls/hr Q24HR SANCHEZ Administration Sodium Chloride 100 mls @ 999 mls/hr 01/19/19 09:29 Nacl 0.9% IV MUA PRN Hypotension Vancomycin HCl 500 mg/ Sodium 110 mls @ 66.667 mls/hr 02/07/19 18:00 Chloride IV 02/16/19 10:00 [email or web address] SANCHEZ Insulin Human Regular 0 units 01/14/19 00:00 02/07/19 13:46 Humulin R SUB-Q Not Given Q6HR [facility] Protocol Metoprolol Tartrate 100 mg 12/31/18 22:00 02/07/19 13:43 Lopressor PO 100 mg BID SANCHEZ Administration Morphine Sulfate 2 mg 01/21/19 04:08 02/05/19 23:38 Morphine IV 2 mg Q4H PRN Administration Pain, Moderate (4-6) Nitroglycerin 0.4 mg 01/21/19 04:05 01/21/19 04:15 Nitrostat SL 0.4 mg .Q5MIN PRN Administration Chest Pain Oxycodone/Acetaminophen 1 tab 01/05/19 08:30 02/03/19 23:28 Percocet 5/325 PO 1 tab Q6H PRN Administration Pain, Moderate (4-6) Risperidone 0.5 mg 12/26/18 22:00 02/06/19 21:18 Risperdal PO 0.5 mg QHS SANCHEZ Administration Risperidone 1 mg 01/31/19 10:30 02/07/19 13:46 Risperdal PO 1 mg QAM SANCHEZ Administration Sertraline HCl 100 mg 12/27/18 10:00 02/07/19 13:46 Zoloft PO 100 mg QDAY [facility] Administration Simple Syrup 15 ml 01/28/19 14:53 Simple Syrup FEEDTUBE PRN PRN Hypoglycemia Simple Syrup 30 ml 01/28/19 14:53 Simple Syrup FEEDTUBE PRN PRN Hypoglycemia Sodium Bicarbonate 325 mg 01/28/19 14:53 Sodium Bicarbonate FEEDTUBE PRN PRN For Clogged Feeding Tube Sodium Chloride 10 ml 12/26/18 22:00 02/07/19 13:44 Sodium Chloride Flush Syringe 10 Ml IV 10 ml BID [facility] Administration Sodium Hypochlorite 1 applic 01/19/19 10:00 02/07/19 13:43 Dakin's Half Strength TP 1 applicatio QDAY [facility] Administration Nutrition/Malnutrition Assess - Dietary Evaluation Nutrition/Malnutrition Findings: Nutrition Notes Start: 12/27/18 17:15 Freq: Status: Active Protocol: Document 02/06/19 21:52 RM (Rec: 02/06/19 21:54 RM [id number]) Nutrition Notes Initial or Follow up Reassessment Current Diagnosis CKD (stage V CKD),Diabetes, Sepsis,Hypertension Other Pertinent Diagnosis Necrotizing sacral decubitus ulcer with osteomyelitis Current Diet TF - Nepro at 45ml/hr Labs/Tests Reviewed Pertinent Medications Reviewed Height 5 ft 7 in Weight 86.6 kg [place] Body Weight (kg) 67.27 BMI 29.9 Subjective/Other Information Observed Nepro infusing at goal rate. Percent of energy/protein needs met: 100%/81% Burn Absent Trauma Absent #2 Nutrition Diagnosis Increased nutrient needs ( specify in comment below) Diagnosis Progress(for reassessment Continues documentation) #1 Nutrition Diagnosis Inadequate oral intake Diagnosis Progress(for reassessment Continues documentation) Is patient on ventilator? No Is Patient Ambulatory and/or Out of Bed No [facility] [phone] Calculation Used for Recommendations [facility] Additional Notes Pro needs 1.2-1.4g/k- 129g/day Fluid needs 1-1.5L/day Nutrition Intervention Nutrition Support: Continue Nepro at 45 ml/hr. Water flush of 150 mls q 4 hrs . Kcal 1,944 Protein (gm) 87 Fluid (mL) 785 Goal #1 TF tolerance Goal #2 TF to continue to meet at least 75% of calorie and protein needs Anticipated Discharge Needs: Nepro Follow-Up By: 02/13/19 Additional Comments Follow for TF tolerance
[2019-02-07] MEDS: MORPHINE IV PRN (16:49)
[2019-02-07] MEDS: VANCOMYCIN 500 MG in NACL 0.9% 100 ML IV SCH (17:09)
[2019-02-07] MEDS: BENADRYL PO PRN (21:52)
[2019-02-07] MEDS: NEURONTIN PO SCH (21:53)
[2019-02-08] MEDS: HumuLIN R SUB-Q SCH ×4 (06:00→17:25)
[2019-02-08] MEDS: APRESOLINE PO SCH ×3 (06:00→21:29)
[2019-02-08 06:39] LABS: Basophils # (Auto) 0.2 K/mm3 (0.0-0.1); Basophils % (Auto) 2.7 % (0.0-1.8); Eosinophils # (Auto) 0.4 K/mm3 (0.0-0.4); Eosinophils % (Auto) 6.6 % (0.0-4.3); Hematocrit 29.6 % (35.5-45.6); Hemoglobin 9.3 gm/dl (11.8-15.2); Lymphocytes # (Auto) 0.8 K/mm3 (1.2-5.4); Lymphocytes % (Auto) 12.1 % (13.4-35.0); Mean Corpuscular HGB Conc 31 % (32-34); Mean Corpuscular Volume 90 fl (84-94); Monocytes # (Auto) 0.6 K/mm3 (0.0-0.8); Monocytes % (Auto) 9.9 % (0.0-7.3); Platelet Count 309 K/mm3 (140-440); Red Blood Count 3.29 M/mm3 (3.65-5.03); Red Cell Distribution Width 19.8 % (13.2-15.2)
[2019-02-08 07:03] LABS: Albumin 2.1 g/dL (3.9-5); Calcium 9.4 mg/dL (8.4-10.2)
[2019-02-08] MEDS: HALFPRIN EC PO SCH (11:14)
[2019-02-08] MEDS: CARDIZEM PO SCH ×2 (11:14→21:28)
[2019-02-08] MEDS: PEPCID PO SCH (11:15)
[2019-02-08] MEDS: FOLVITE PO SCH (11:15)
[2019-02-08] MEDS: RisperDAL PO SCH ×2 (11:15→21:30)
[2019-02-08] MEDS: LOPRESSOR PO SCH ×2 (11:15→21:28)
[2019-02-08] MEDS: MERREM 1,000 MG in NACL 0.9% 100 ML IV SCH (11:16)
[2019-02-08] MEDS: ZOLOFT PO SCH (11:17)
[2019-02-08] MEDS: SODIUM CHLORIDE FLUSH SYRINGE 10 ML IV SCH (11:18)
[2019-02-08] MEDS: DAKIN'S HALF STRENGTH TP SCH (11:21)
[2019-02-08] MEDS: HEPARIN SUB-Q SCH ×2 (11:24→21:31)
--- NOTE | 2019-02-08 13:00 | Progress Note ---
Assessment and Plan Impression * End-stage renal disease on maintenance hemodialysis * Altered mental status * Sacral decubitus * Status post diverting colostomy * Hypokalemia * Failure to thrive * Hypophosphatemia * Malnutrition * Anemia secondary to ESRD * Hypomagnesemia Recommendations * Patient had uneventful dialysis yesterday. * Continue dialysis on TTS schedule for now * Antibiotic therapy and local wound care as per primary team * Avoid nephrotoxins * Epogen with dialysis * Adjust diet and meds for ESRD state * Awaiting placement Subjective Date of service: 02/08/19 Principal diagnosis: afib Interval history: Patient is comfortable. Not answering any questions Objective - Vital Signs Vital signs: Vital Signs - 12hr 02/08/19 02/08/19 02/08/19 05:50 10:00 11:13 Temperature 97.8 F 97.2 F L Pulse Rate 88 107 H Pulse Rate [ 107 H Apical] Respiratory 22 18 18 Rate Blood Pressure 143/69 157/83 O2 Sat by Pulse 81 L 95 95 Oximetry 02/08/19 02/08/19 11:14 11:15 Temperature Pulse Rate 107 H 107 H Pulse Rate [ Apical] Respiratory Rate Blood Pressure 157/83 157/83 O2 Sat by Pulse Oximetry - General Appearance General appearance: appears stated age, chronically ill, frail EENT: ATNC Neck: no JVD, no thyromegaly, no carotid bruit, supple Respiratory: Present: Clear to Ascultation Cardiology: regular, normal heart rate Gastrointestinal: normoactive bowel sounds, other (Peg tube and colostomy bag in place) Integumentary: other (no edema) - Lab 02/08/19 06:09 02/08/19 06:09 Most recent lab results Calcium 9.4 mg/dL (8.4-10.2) 02/08/19 06:09 Phosphorus 2.90 mg/dL (2.5-4.5) D 01/05/19 04:56 Magnesium 2.10 mg/dL (1.7-2.3) 02/08/19 06:09 Medications & Allergies - Medications Allergies/Adverse Reactions: Allergies haloperidol [From Haldol] Adverse Reaction (Verified 03/13/18 12:10) Unknown haloperidol lactate [From Haldol] Adverse Reaction (Verified 03/13/18 12:10) Unknown Home Medications: Home Medications Medication Instructions Recorded Confirmed Last Taken Type risperiDONE [RisperDAL] 1 mg PO QAM 03/13/18 12/27/18 Unknown History Sertraline [Zoloft] 100 mg PO QDAY 08/26/18 12/27/18 Unknown History risperiDONE [RisperDAL] 0.5 mg PO HS 08/26/18 12/27/18 Unknown History Polyethylene Glycol 3350 [Miralax 17 gm PO QDAY #30 packet 11/05/18 12/27/18 Unknown Rx 3350] Aspirin EC 81 mg PO DAILY #30 11/19/18 12/27/18 Unknown Rx Docusate Sodium [Colace CAP] 100 mg PO BID #60 11/19/18 12/27/18 Unknown Rx Folic Acid [Folvite] 1 mg PO DAILY #30 tab 11/19/18 12/27/18 Unknown Rx Famotidine [Pepcid] 20 mg PO DAILY tablet 12/08/18 12/27/18 Unknown Rx Gabapentin [Neurontin] 100 mg PO QHS capsule 12/08/18 12/27/18 Unknown Rx Metoprolol [Lopressor TAB] 50 mg PO BID 30 Days tablet 12/08/18 12/27/18 Unknown Rx Sevelamer Carbonate [Renvela] 800 mg PO TIDWM tablet 12/08/18 12/27/18 Unknown Rx hydrALAZINE [Apresoline TAB] 100 mg PO Q8HR #120 tablet 12/08/18 12/27/18 Unknown Rx Acetaminophen [Acetaminophen TAB] 650 mg PO Q12H PRN 12/15/18 12/27/18 Unknown History Amino Acids/Protein Hydrolys 30 ml PO BID 12/15/18 12/27/18 Unknown History [Pro-Stat Sugar Free Liquid] Glucagon,Human Recombinant 1 mg IJ Q15MIN PRN 12/15/18 12/27/18 Unknown History [Glucagon Emergency Kit] Insulin Aspart [NovoLOG 100 See Protocol SQ QWEEK 12/15/18 12/27/18 Unknown History UNITS/ML VIAL] Epoetin Solitario 10,000 Unit [Procrit] 10,000 unit IV UMA PRN vial 12/18/18 12/27/18 Unknown Rx Lispro Insulin [HumaLOG] 0 unit SUB-Q ACHS units 12/18/18 12/27/18 Unknown Rx risperiDONE [RisperDAL] 0.5 mg PO QHS tablet 12/18/18 12/27/18 Unknown Rx Meropenem [Merrem] 1,000 mg IV Q24HR vial 01/16/19 Unknown Rx Active Medications: Generic Name Dose Route Start Last Admin Trade Name Freq PRN Reason Stop Dose Admin Lipase/Protease/Amylase 1 each 01/28/19 14:53 Pancrejewel Barrientos 10,500 Unit FEEDTUBE PRN PRN For Clogged Feeding Tube Aspirin 81 mg 12/27/18 10:00 02/08/19 11:14 Halfprin Ec PO 81 mg DAILY SANCHEZ Administration Diltiazem HCl 60 mg 01/22/19 10:00 02/08/19 11:14 Cardizem PO 60 mg BID SANCHEZ Administration Diphenhydramine HCl 25 mg 01/26/19 05:54 02/07/19 21:52 Benadryl PO 25 mg Q6H PRN Administration Itching Epoetin Solitario 20,000 unit 01/05/19 11:03 02/07/19 12:13 Procrit IV 20,000 unit UMA PRN Administration hemodialysis Famotidine 20 mg 12/27/18 10:00 02/08/19 11:15 Pepcid PO 20 mg DAILY SANCHEZ Administration Folic Acid 1 mg 12/27/18 10:00 02/08/19 11:15 Folvite PO 1 mg DAILY SANCHEZ Administration Gabapentin 100 mg 12/26/18 22:00 02/07/19 21:53 Neurontin PO 100 mg QHS SANCHEZ Administration Heparin Sodium (Porcine) 5,000 unit 01/23/19 22:00 02/08/19 11:24 Heparin SUB-Q 5,000 unit Q12HR SANCHEZ Administration Hydralazine HCl 100 mg 12/26/18 22:00 02/08/19 06:00 Apresoline PO 100 mg Q8HR SANCHEZ Administration Meropenem 1,000 mg/ Sodium 100 mls @ 100 mls/hr 01/05/19 11:00 02/08/19 11:16 Chloride IV 02/16/19 10:59 100 mls/hr Q24HR SANCHEZ Administration Sodium Chloride 100 mls @ 999 mls/hr 01/19/19 09:29 Nacl 0.9% IV UMA PRN Hypotension Vancomycin HCl 500 mg/ Sodium 110 mls @ 66.667 mls/hr 02/07/19 18:00 02/07/19 17:09 Chloride IV 07/29/19 10:00 66.667 mls/hr [email or web address] SANCHEZ Administration Insulin Human Regular 0 units 01/14/19 00:00 02/08/19 12:27 Humulin R SUB-Q Not Given Q6HR [facility] Protocol Metoprolol Tartrate 100 mg 12/31/18 22:00 02/08/19 11:15 Lopressor PO 100 mg BID SANCHEZ Administration Morphine Sulfate 2 mg 01/21/19 04:08 02/07/19 16:49 Morphine IV 2 mg Q4H PRN Administration Pain, Moderate (4-6) Nitroglycerin 0.4 mg 01/21/19 04:05 01/21/19 04:15 Nitrostat SL 0.4 mg .Q5MIN PRN Administration Chest Pain Oxycodone/Acetaminophen 1 tab 01/05/19 08:30 02/03/19 23:28 Percocet 5/325 PO 1 tab Q6H PRN Administration Pain, Moderate (4-6) Risperidone 0.5 mg 12/26/18 22:00 02/07/19 21:50 Risperdal PO 0.5 mg QHS SANCHEZ Administration Risperidone 1 mg 01/31/19 10:30 02/08/19 11:15 Risperdal PO 1 mg QAM SANCHEZ Administration Sertraline HCl 100 mg 12/27/18 10:00 02/08/19 11:17 Zoloft PO 100 mg QDAY SANCHEZ Administration Simple Syrup 15 ml 01/28/19 14:53 Simple Syrup FEEDTUBE PRN PRN Hypoglycemia Simple Syrup 30 ml 01/28/19 14:53 Simple Syrup FEEDTUBE PRN PRN Hypoglycemia Sodium Bicarbonate 325 mg 01/28/19 14:53 Sodium Bicarbonate FEEDTUBE PRN PRN For Clogged Feeding Tube Sodium Chloride 10 ml 12/26/18 22:00 02/08/19 11:18 Sodium Chloride Flush Syringe 10 Ml IV 10 ml BID SANCHEZ Administration Sodium Hypochlorite 1 applic 01/19/19 10:00 02/08/19 11:21 Dakin's Half Strength TP 1 applicatio QDAY SANCHEZ Administration
--- NOTE | 2019-02-08 13:25 | Progress Note ---
Assessment and Plan Assessment and plan: --ESRD needing dialysis: Nephology is managing, hemodialysis per schedule --Hypokalemia: Replace per protocol with KCl, monitor electrolytes --Necrotizing Unstagable sacral decubitus ulcer with ostemomylitis On 01/01/2019 open excisional debridement of necrotic and infected sacral wound noted a large amount of necrotic tissue debrided and two abscess cavities at the caudad portion of the wound with a copious amount of purulent drainage which was drained. Wound cultures 01/02/2019 ESBL Kleb, MDR Ecoli and E raffinosus resistant to penicillin: On meropenam and vanc per ID. Consult Vascular surgery for central line placement, planned for diverting colostomy, family has agreed, Cardiology re-evaluated for surgery, input noted, high CV risk. Dr. Manohar Charles, 01/08/19, now ongoing to run till 02/16/19. Further debridement done 01/14/19. he is medically stable awaiting placement. case management working on placement. --Severe Sepsis due to sacral decubitus ulcers and osteomyelitis; antibiotics and wound care --Acute on chronic Anemia of chronic disease: s/p total of 8 units PRBC, follow cbc- no occult GI bleed noted. GI input noted, No retroperitoneal bleed noted. Although 150cc Of blood loss documented during debridement, No further bleeding from sacral wound noted, Dakins moistened kerlex packing started Pt is s/p x1 DDVAP --Atypical Chest pain, now resolved, medical management --Nonspecific Elevated troponin: Cardiology evaluated conservative management --Metabolic encephalopathy due to underlying disease process, Supportive care --Acute systolic exacerbation of CHF EF 35-40% : treat via Ultrafiltration during HD --Afib with RVR: rate control only and optimize meds per Cardiology --Insulin dependent diabetes mellitus, A1c is 4.2: insulin was dc, Accu-Chek s liding scale coverage --Severe malnutrition /hypoalbuminemia with FTT: 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, staff analyst following PEG placed on 01/02/19 --Hypertension: Well-controlled on current antihypertensives --h/o Peripheral neuropathy: Continue gabapentin --DVT prophylaxis On heparin and GI prophylaxis Very Poor prognosis discussed with family member Mr Jennifer Mims. Per discussion with Surgery and as documented by them "Very poor prognosis for wound healing. I do not feel wound will ever heal due to extensive nature, poor nutrition, bedbound status, among other comorbidities. Recommend hospice." Family not accepting at this time. Patient is clinically stable for discharge to SNF However [contact isolation beds not available at SNF] History Interval history: Patient seen and examined medical records reviewed Clinically no change, Awaiting placement Hospitalist Physical - Constitutional Vitals: Temp Pulse Resp BP Pulse Ox 97.2 F L 107 H 18 157/83 95 02/08/19 11:13 02/08/19 11:15 02/08/19 11:13 02/08/19 11:15 02/08/19 11:13 General appearance: Present: no acute distress, well-nourished, obese - EENT Eyes: Present: PERRL, EOM intact - Neck Neck: Present: supple, normal ROM - Respiratory Respiratory effort: normal Respiratory: bilateral: diminished, negative: rales, rhonchi, wheezing - Cardiovascular Rhythm: regular Heart Sounds: Present: S1 & S2 - Extremities Extremities: no ischemia, No edema - Abdominal General gastrointestinal: soft, non-tender, non-distended, normal bowel sounds, other (colostomy) - Integumentary Integumentary: Present: clear, warm - Psychiatric Psychiatric: other (responds appropriately) - Neurologic Neurologic: other (clinically blind) Results - Labs CBC & Chem 7: 02/08/19 06:09 02/08/19 06:09 Labs: Laboratory Last Values WBC 6.5 K/mm3 (4.5-11.0) 02/08/19 06:09 RBC 3.29 M/mm3 (3.65-5.03) L 02/08/19 06:09 Hgb 9.3 gm/dl (11.8-15.2) L 02/08/19 06:09 Hct 29.6 % (35.5-45.6) L 02/08/19 06:09 MCV 90 fl (84-94) 02/08/19 06:09 MCH 28 pg (28-32) 02/08/19 06:09 MCHC 31 % (32-34) L 02/08/19 06:09 RDW 19.8 % (13.2-15.2) H 02/08/19 06:09 Plt Count 309 K/mm3 (140-440) 02/08/19 06:09 Lymph % (Auto) 12.1 % (13.4-35.0) L 02/08/19 06:09 [place] % (Auto) 9.9 % (0.0-7.3) H 02/08/19 06:09 Eos % (Auto) 6.6 % (0.0-4.3) H 02/08/19 06:09 Baso % (Auto) 2.7 % (0.0-1.8) H 02/08/19 06:09 Lymph # 0.8 K/mm3 (1.2-5.4) L 02/08/19 06:09 [place] # 0.6 K/mm3 (0.0-0.8) 02/08/19 06:09 Eos # 0.4 K/mm3 (0.0-0.4) 02/08/19 06:09 Baso # 0.2 K/mm3 (0.0-0.1) H 02/08/19 06:09 Add Manual Diff Complete 01/03/19 17:16 Total Counted 100 01/03/19 17:16 Seg Neutrophils % 68.7 % (40.0-70.0) 02/08/19 06:09 Seg Neuts % (Manual) 96.0 % (40.0-70.0) H 01/03/19 17:16 0 % 01/03/19 17:16 2.0 % (13.4-35.0) L 01/03/19 17:16 Reactive Lymphs % (Man) 0 % 01/03/19 17:16 2.0 % (0.0-7.3) 01/03/19 17:16 0 % (0.0-4.3) 01/03/19 17:16 0 % (0.0-1.8) 01/03/19 17:16 0 % 01/03/19 17:16 0 % 01/03/19 17:16 0 % 01/03/19 17:16 0 % 01/03/19 17:16 Nucleated RBC % Not Reportable 01/03/19 17:16 Seg Neutrophils # 4.5 K/mm3 (1.8-7.7) 02/08/19 06:09 Seg Neutrophils # Man 10.8 K/mm3 (1.8-7.7) H 01/03/19 17:16 Band Neutrophils # 0.0 K/mm3 01/03/19 17:16 0.2 K/mm3 (1.2-5.4) L 01/03/19 17:16 Abs React Lymphs (Man) 0.0 K/mm3 01/03/19 17:16 0.2 K/mm3 (0.0-0.8) 01/03/19 17:16 0.0 K/mm3 (0.0-0.4) 01/03/19 17:16 0.0 K/mm3 (0.0-0.1) 01/03/19 17:16 0.0 K/mm3 01/03/19 17:16 0.0 K/mm3 01/03/19 17:16 0.0 K/mm3 01/03/19 17:16 Blast Cells # 0.0 K/mm3 01/03/19 17:16 WBC Morphology Not Reportable 01/03/19 17:16 Hypersegmented Neuts Not Reportable 01/03/19 17:16 Hyposegmented Neuts Not Reportable 01/03/19 17:16 Hypogranular Neuts Not Reportable 01/03/19 17:16 Not Reportable 01/03/19 17:16 Not Reportable 01/03/19 17:16 Not Reportable 01/03/19 17:16 Not Reportable 01/03/19 17:16 Not Reportable 01/03/19 17:16 Not Reportable 01/03/19 17:16 Consistent w auto 01/03/19 17:16 Not Reportable 01/03/19 17:16 Plt Clumps, EDTA Not Reportable 01/03/19 17:16 Not Reportable 01/03/19 17:16 Not Reportable 01/03/19 17:16 Not Reportable 01/03/19 17:16 Plt Morphology Comment Not Reportable 01/03/19 17:16 RBC Morphology Not Reportable 01/03/19 17:16 Dimorphic RBCs Not Reportable 01/03/19 17:16 Not Reportable 01/03/19 17:16 1+ 01/03/19 17:16 Few 01/03/19 17:16 1+ 01/03/19 17:16 Not Reportable 01/03/19 17:16 Not Reportable 01/03/19 17:16 Not Reportable 01/03/19 17:16 Not Reportable 01/03/19 17:16 Not Reportable 01/03/19 17:16 Few 01/03/19 17:16 Not Reportable 01/03/19 17:16 Few 01/03/19 17:16 Not Reportable 01/03/19 17:16 Not Reportable 01/03/19 17:16 Not Reportable 01/03/19 17:16 Not Reportable 01/03/19 17:16 Not Reportable 01/03/19 17:16 Not Reportable 01/03/19 17:16 Not Reportable 01/03/19 17:16 Acanthocytes (Spur) Not Reportable 01/03/19 17:16 Rouleaux Not Reportable 01/03/19 17:16 Not Reportable 01/03/19 17:16 Not Reportable 01/03/19 17:16 Not Reportable 01/03/19 17:16 Not Reportable 01/03/19 17:16 Hem Pathologist Commnt No 01/03/19 17:16 PT 18.0 Sec. (12.2-14.9) H 01/02/19 05:39 INR 1.39 (0.87-1.13) H 01/02/19 05:39 Sodium 137 mmol/L (137-145) 02/08/19 06:09 Potassium 4.2 mmol/L (3.6-5.0) 02/08/19 06:09 Chloride 97.2 mmol/L (98-107) L 02/08/19 06:09 Carbon Dioxide 30 mmol/L (22-30) 02/08/19 06:09 14 mmol/L 02/08/19 06:09 BUN 16 mg/dL (9-20) 02/08/19 06:09 1.8 mg/dL (0.8-1.5) H 02/08/19 06:09 Estimated GFR 46 ml/min 02/08/19 06:09 9 % 02/08/19 06:09 Glucose 93 mg/dL (75-100) 02/08/19 06:09 POC Glucose 126 (70-105) H 02/08/19 12:22 < 4.2 % (4-6) 12/26/18 17:12 Lactic Acid 1.10 mmol/L (0.7-2.0) 12/27/18 07:04 Calcium 9.4 mg/dL (8.4-10.2) 02/08/19 06:09 Phosphorus 2.90 mg/dL (2.5-4.5) D 01/05/19 04:56 Magnesium 2.10 mg/dL (1.7-2.3) 02/08/19 06:09 0.30 mg/dL (0.1-1.2) 02/08/19 06:09 AST 27 units/L (5-40) 02/08/19 06:09 ALT 7 units/L (7-56) 02/08/19 06:09 160 units/L (35-129) H 02/08/19 06:09 29 units/L (55-170) L 12/26/18 17:12 0.201 ng/mL (0.00-0.029) H* 01/21/19 08:05 6.0 g/dL (6.3-8.2) L 02/08/19 06:09 2.1 g/dL (3.9-5) L 02/08/19 06:09 0.5 % 02/08/19 06:09 Triglycerides 46 mg/dL (2-149) 01/21/19 04:23 Cholesterol 64 mg/dL (50-199) 01/21/19 04:23 34 mg/dL (50-130) L 01/21/19 04:23 27 mg/dL (40-59) L 01/21/19 04:23 2.37 % 01/21/19 04:23 PTH Intact 178.6 pg/mL (15-65) H 01/01/19 17:32 Random Vancomycin 24.9 ug/mL (0-40.0) 02/05/19 09:10 Hepatitis A IgM Ab Non-reactive (NonReactive) 01/22/19 10:34 Hep Bs Antigen Non-reactive (Negative) 01/22/19 10:34 Hep B Core IgM Ab Non-reactive (NonReactive) 01/22/19 10:34 Non-reactive (NonReactive) 01/22/19 10:34 Blood Type O POSITIVE 01/16/19 15:06 Antibody Screen Negative 01/16/19 15:06 Crossmatch See Detail 01/16/19 15:06 Active Medications - Current Medications Current Medications: Generic Name Dose Route Start Last Admin Trade Name Freq PRN Reason Stop Dose Admin Lipase/Protease/Amylase 1 each 01/28/19 14:53 Pancreaze 10,500 Unit FEEDTUBE PRN PRN For Clogged Feeding Tube Aspirin 81 mg 12/27/18 10:00 02/08/19 11:14 Halfprin Ec PO 81 mg DAILY SANCHEZ Administration Diltiazem HCl 60 mg 01/22/19 10:00 02/08/19 11:14 Cardizem PO 60 mg BID SANCHEZ Administration Diphenhydramine HCl 25 mg 01/26/19 05:54 02/07/19 21:52 Benadryl PO 25 mg Q6H PRN Administration Itching Epoetin Solitario 20,000 unit 01/05/19 11:03 02/07/19 12:13 Procrit IV 20,000 unit UMA PRN Administration hemodialysis Famotidine 20 mg 12/27/18 10:00 02/08/19 11:15 Pepcid PO 20 mg DAILY SANCHEZ Administration Folic Acid 1 mg 12/27/18 10:00 02/08/19 11:15 Folvite PO 1 mg DAILY SANCHEZ Administration Gabapentin 100 mg 12/26/18 22:00 02/07/19 21:53 Neurontin PO 100 mg QHS SANCHEZ Administration Heparin Sodium (Porcine) 5,000 unit 01/23/19 22:00 02/08/19 11:24 Heparin SUB-Q 5,000 unit Q12HR SANCHEZ Administration Hydralazine HCl 100 mg 12/26/18 22:00 02/08/19 06:00 Apresoline PO 100 mg Q8HR SANCHEZ Administration Meropenem 1,000 mg/ Sodium 100 mls @ 100 mls/hr 01/05/19 11:00 02/08/19 11:16 Chloride IV 02/16/19 10:59 100 mls/hr Q24HR SANCHEZ Administration Sodium Chloride 100 mls @ 999 mls/hr 01/19/19 09:29 Nacl 0.9% IV UMA PRN Hypotension Vancomycin HCl 500 mg/ Sodium 110 mls @ 66.667 mls/hr 02/07/19 18:00 02/07/19 17:09 Chloride IV 02/16/19 10:00 66.667 mls/hr [email or web address] SANCHEZ Administration Insulin Human Regular 0 units 01/14/19 00:00 02/08/19 12:27 Humulin R SUB-Q Not Given Q6HR [facility] Protocol Metoprolol Tartrate 100 mg 12/31/18 22:00 02/08/19 11:15 Lopressor PO 100 mg BID SANCHEZ Administration Morphine Sulfate 2 mg 01/21/19 04:08 02/07/19 16:49 Morphine IV 2 mg Q4H PRN Administration Pain, Moderate (4-6) Nitroglycerin 0.4 mg 01/21/19 04:05 01/21/19 04:15 Nitrostat SL 0.4 mg .Q5MIN PRN Administration Chest Pain Oxycodone/Acetaminophen 1 tab 01/05/19 08:30 02/03/19 23:28 Percocet 5/325 PO 1 tab Q6H PRN Administration Pain, Moderate (4-6) Risperidone 0.5 mg 12/26/18 22:00 02/07/19 21:50 Risperdal PO 0.5 mg QHS SANCHEZ Administration Risperidone 1 mg 01/31/19 10:30 02/08/19 11:15 Risperdal PO 1 mg QAM SANCHEZ Administration Sertraline HCl 100 mg 12/27/18 10:00 02/08/19 11:17 Zoloft PO 100 mg QDAY SANCHEZ Administration Simple Syrup 15 ml 01/28/19 14:53 Simple Syrup FEEDTUBE PRN PRN Hypoglycemia Simple Syrup 30 ml 01/28/19 14:53 Simple Syrup FEEDTUBE PRN PRN Hypoglycemia Sodium Bicarbonate 325 mg 01/28/19 14:53 Sodium Bicarbonate FEEDTUBE PRN PRN For Clogged Feeding Tube Sodium Chloride 10 ml 12/26/18 22:00 02/08/19 11:18 Sodium Chloride Flush Syringe 10 Ml IV 10 ml BID SANCHEZ Administration Sodium Hypochlorite 1 applic 01/19/19 10:00 02/08/19 11:21 Dakin's Half Strength TP 1 applicatio QDAY SANCHEZ Administration Nutrition/Malnutrition Assess - Dietary Evaluation Nutrition/Malnutrition Findings: Nutrition Notes Start: 12/27/18 17:15 Freq: Status: Active Protocol: Document 02/06/19 21:52 RM (Rec: 02/06/19 21:54 RM [id number]) Nutrition Notes Initial or Follow up Reassessment Current Diagnosis CKD (stage V CKD),Diabetes, Sepsis,Hypertension Other Pertinent Diagnosis Necrotizing sacral decubitus ulcer with osteomyelitis Current Diet TF - Nepro at 45ml/hr Labs/Tests Reviewed Pertinent Medications Reviewed Height 5 ft 7 in Weight 86.6 kg [place] Body Weight (kg) 67.27 BMI 29.9 Subjective/Other Information Observed Nepro infusing at goal rate. Percent of energy/protein needs met: 100%/81% Burn Absent Trauma Absent #2 Nutrition Diagnosis Increased nutrient needs ( specify in comment below) Diagnosis Progress(for reassessment Continues documentation) #1 Nutrition Diagnosis Inadequate oral intake Diagnosis Progress(for reassessment Continues documentation) Is patient on ventilator? No Is Patient Ambulatory and/or Out of Bed No REE-([place]-[facility]. Jeor-confined to bed) 194.181 Calculation Used for Recommendations [place]-[facility] Jeor Additional Notes Pro needs 1.2-1.4g/k- 129g/day Fluid needs 1-1.5L/day Nutrition Intervention Nutrition Support: Continue Nepro at 45 ml/hr. Water flush of 150 mls q 4 hrs . Kcal 1,944 Protein (gm) 87 Fluid (mL) 785 Goal #1 TF tolerance Goal #2 TF to continue to meet at least 75% of calorie and protein needs Anticipated Discharge Needs: Nepro Follow-Up By: 02/13/19 Additional Comments Follow for TF tolerance
[2019-02-08] MEDS: MORPHINE IV PRN (17:23)
[2019-02-08] MEDS: PERCOCET 5/325 PO PRN (21:27)
[2019-02-08] MEDS: NEURONTIN PO SCH (21:29)
[2019-02-09] MEDS ORDERED: HumuLIN R SUB-Q SCH (12:00)
[2019-02-09] MEDS: HEPARIN SUB-Q SCH ×2 (12:15→22:33)
[2019-02-09] MEDS: ZOLOFT PO SCH (12:56)
[2019-02-09] MEDS: LOPRESSOR PO SCH ×2 (12:57→22:34)
[2019-02-09] MEDS: PEPCID PO SCH (12:57)
[2019-02-09] MEDS: APRESOLINE PO SCH ×3 (12:57→22:34)
[2019-02-09] MEDS: HALFPRIN EC PO SCH (12:57)
[2019-02-09] MEDS: RisperDAL PO SCH ×2 (12:58→22:35)
[2019-02-09] MEDS: FOLVITE PO SCH (12:58)
[2019-02-09] MEDS: CARDIZEM PO SCH ×2 (12:58→22:34)
[2019-02-09] MEDS: DAKIN'S HALF STRENGTH TP SCH (13:01)
[2019-02-09] MEDS: SODIUM CHLORIDE FLUSH SYRINGE 10 ML IV SCH ×2 (13:01→22:35)
[2019-02-09] MEDS: HumuLIN R SUB-Q SCH ×2 (13:02→18:30)
[2019-02-09] MEDS: MERREM 1,000 MG in NACL 0.9% 100 ML IV SCH (15:22)
--- NOTE | 2019-02-09 15:39 | Progress Note ---
Assessment and Plan - Patient Problems (1) ESRD (end stage renal disease) Current Visit: Yes Status: Acute Plan to address problem: END-STAGE RENAL DISEASE. DIALYSIS ACCESS RIGHT tunnel dialysis catheter continue hemodialysis Saturday, , Saturday (2) CHF (congestive heart failure) Current Visit: Yes Status: Acute Qualifiers: Heart failure type: unspecified Heart failure chronicity: acute on chronic Qualified Code(s): I50.9 - Heart failure, unspecified Plan to address problem: Chronic Congestive heart failure: continue current medications. (3) Anemia in ESRD (end-stage renal disease) Current Visit: Yes Status: Chronic Plan to address problem: moderate Anemia due to chronic kidney disease Hb: 9.3g/dl continue epogen [id number] q TTS monitor cbc (4) Decubitus ulcer of sacral region, unstageable Current Visit: Yes Status: Acute Plan to address problem: Large decubitus ulcer wound cultures with polymicrobial growth s/p diverting colostomy continue antibiotics with meropenem. Subjective Principal diagnosis: afib Interval history: 63 year old with medical history significant for HTN, dementia, ESRD on hemodialysis TTS via a Right IJ Perm cath . with infected decubitus ulcers . Patient seen today drowsy Awake , doing well. edema improved Objective - Vital Signs Vital signs: Vital Signs - 12hr 02/09/19 02/09/19 04:19 13:06 Temperature 98.8 F 98.2 F Pulse Rate 99 H 99 H Respiratory 20 20 Rate Blood Pressure 109/51 127/73 O2 Sat by Pulse 67 L 93 Oximetry - General Appearance General appearance: chronically ill, frail, anxious EENT: ATNC, PERRL, mucous membranes moist Neck: no JVD Respiratory: Present: Decreased Breath Sounds Cardiology: regular, S1S2 Gastrointestinal: normal, normoactive bowel sounds, other (colostomy) Integumentary: no rash Neurologic: confused, CN 3-12 intact Psychiatric: mood/affect appropriate - Lab 02/08/19 06:09 02/08/19 06:09 Most recent lab results Calcium 9.4 mg/dL (8.4-10.2) 02/08/19 06:09 Phosphorus 2.90 mg/dL (2.5-4.5) D 01/05/19 04:56 Magnesium 2.10 mg/dL (1.7-2.3) 02/08/19 06:09 Medications & Allergies - Medications Allergies/Adverse Reactions: Allergies haloperidol [From Haldol] Adverse Reaction (Verified 03/13/18 12:10) Unknown haloperidol lactate [From Haldol] Adverse Reaction (Verified 03/13/18 12:10) Unknown Home Medications: Home Medications Medication Instructions Recorded Confirmed Last Taken Type risperiDONE [RisperDAL] 1 mg PO QAM 03/13/18 12/27/18 Unknown History Sertraline [Zoloft] 100 mg PO QDAY 08/26/18 12/27/18 Unknown History risperiDONE [RisperDAL] 0.5 mg PO HS 08/26/18 12/27/18 Unknown History Polyethylene Glycol 3350 [Miralax 17 gm PO QDAY #30 packet 11/05/18 12/27/18 Unknown Rx 3350] Aspirin EC 81 mg PO DAILY #30 11/19/18 12/27/18 Unknown Rx Docusate Sodium [Colace CAP] 100 mg PO BID #60 11/19/18 12/27/18 Unknown Rx Folic Acid [Folvite] 1 mg PO DAILY #30 tab 11/19/18 12/27/18 Unknown Rx Famotidine [Pepcid] 20 mg PO DAILY tablet 12/08/18 12/27/18 Unknown Rx Gabapentin [Neurontin] 100 mg PO QHS capsule 12/08/18 12/27/18 Unknown Rx Metoprolol [Lopressor TAB] 50 mg PO BID 30 Days tablet 12/08/18 12/27/18 Unknown Rx Sevelamer Carbonate [Renvela] 800 mg PO TIDWM tablet 12/08/18 12/27/18 Unknown Rx hydrALAZINE [Apresoline TAB] 100 mg PO Q8HR #120 tablet 12/08/18 12/27/18 Unknown Rx Acetaminophen [Acetaminophen TAB] 650 mg PO Q12H PRN 12/15/18 12/27/18 Unknown History Amino Acids/Protein Hydrolys 30 ml PO BID 12/15/18 12/27/18 Unknown History [Pro-Stat Sugar Free Liquid] Glucagon,Human Recombinant 1 mg IJ Q15MIN PRN 12/15/18 12/27/18 Unknown History [Glucagon Emergency Kit] Insulin Aspart [NovoLOG 100 See Protocol SQ QWEEK 12/15/18 12/27/18 Unknown History UNITS/ML VIAL] Epoetin Solitario 10,000 Unit [Procrit] 10,000 unit IV UAM PRN vial 12/18/18 12/27/18 Unknown Rx Lispro Insulin [HumaLOG] 0 unit SUB-Q ACHS units 12/18/18 12/27/18 Unknown Rx risperiDONE [RisperDAL] 0.5 mg PO QHS tablet 12/18/18 12/27/18 Unknown Rx Meropenem [Merrem] 1,000 mg IV Q24HR vial 01/16/19 Unknown Rx Active Medications: Generic Name Dose Route Start Last Admin Trade Name Freq PRN Reason Stop Dose Admin Lipase/Protease/Amylase 1 each 01/28/19 14:[address] 10,500 Unit FEEDTUBE PRN PRN For Clogged Feeding Tube Aspirin 81 mg 12/27/18 10:00 02/09/19 12:57 Halfprin Ec PO 81 mg DAILY SANCHEZ Administration Diltiazem HCl 60 mg 01/22/19 10:00 02/09/19 12:58 Cardizem PO 60 mg BID SANCHEZ Administration Diphenhydramine HCl 25 mg 01/26/19 05:54 02/07/19 21:52 Benadryl PO 25 mg Q6H PRN Administration Itching Epoetin Solitario 20,000 unit 01/05/19 11:03 02/07/19 12:13 Procrit IV 20,000 unit UMA PRN Administration hemodialysis Famotidine 20 mg 12/27/18 10:00 02/09/19 12:57 Pepcid PO 20 mg DAILY SANCHEZ Administration Folic Acid 1 mg 12/27/18 10:00 02/09/19 12:58 Folvite PO 1 mg DAILY SANCHEZ Administration Gabapentin 100 mg 12/26/18 22:00 02/08/19 21:29 Neurontin PO 100 mg QHS SANCHEZ Administration Heparin Sodium (Porcine) 5,000 unit 01/23/19 22:00 02/09/19 12:15 Heparin SUB-Q 5,000 unit Q12HR SANCHEZ Administration Hydralazine HCl 100 mg 12/26/18 22:00 02/09/19 15:23 Apresoline PO 100 mg Q8HR SANCHEZ Administration Meropenem 1,000 mg/ Sodium 100 mls @ 100 mls/hr 01/05/19 11:00 02/09/19 15:22 Chloride IV 02/16/19 10:59 100 mls/hr Q24HR SANCHEZ Administration Sodium Chloride 100 mls @ 999 mls/hr 01/19/19 09:29 Nacl 0.9% IV UMA PRN Hypotension Vancomycin HCl 500 mg/ Sodium 110 mls @ 66.667 mls/hr 02/07/19 18:00 02/07/19 17:09 Chloride IV 02/16/19 10:00 66.667 mls/hr [email or web address] SANCHEZ Administration Insulin Human Regular 0 units 02/09/19 12:00 02/09/19 13:02 Humulin R SUB-Q Not Given Q6HR [facility] Protocol Metoprolol Tartrate 100 mg 12/31/18 22:00 02/09/19 12:57 Lopressor PO 100 mg BID SANCHEZ Administration Morphine Sulfate 2 mg 01/21/19 04:08 02/08/19 17:23 Morphine IV 2 mg Q4H PRN Administration Pain, Moderate (4-6) Nitroglycerin 0.4 mg 01/21/19 04:05 01/21/19 04:15 Nitrostat SL 0.4 mg .Q5MIN PRN Administration Chest Pain Oxycodone/Acetaminophen 1 tab 01/05/19 08:30 02/08/19 21:27 Percocet 5/325 PO 1 tab Q6H PRN Administration Pain, Moderate (4-6) Risperidone 0.5 mg 12/26/18 22:00 02/08/19 21:30 Risperdal PO 0.5 mg QHS SANCHEZ Administration Risperidone 1 mg 01/31/19 10:30 02/09/19 12:58 Risperdal PO 1 mg QAM SANCHEZ Administration Sertraline HCl 100 mg 12/27/18 10:00 02/09/19 12:56 Zoloft PO 100 mg QDAY SANCHEZ Administration Simple Syrup 15 ml 01/28/19 14:53 Simple Syrup FEEDTUBE PRN PRN Hypoglycemia Simple Syrup 30 ml 01/28/19 14:53 Simple Syrup FEEDTUBE PRN PRN Hypoglycemia Sodium Bicarbonate 325 mg 01/28/19 14:53 Sodium Bicarbonate FEEDTUBE PRN PRN For Clogged Feeding Tube Sodium Chloride 10 ml 12/26/18 22:00 02/09/19 13:01 Sodium Chloride Flush Syringe 10 Ml IV 10 ml BID SANCHEZ Administration Sodium Hypochlorite 1 applic 01/19/19 10:00 02/09/19 13:01 Dakin's Half Strength TP 1 applicatio QDAY [facility] Administration
--- NOTE | 2019-02-09 17:39 | Progress Note ---
Assessment and Plan Assessment and plan: Patient is a 63-year-old -[place] man from [facility] with a plethora of co-morbidities including blindness, CVA, CHF, PPM/ICD, loop recorder since 2013 that is MRI compatible, IDDM type 2, sepsis left foot ulcer, afib, ESRD with complications on HD TTS, hypertension, AOCD and GERD who presented to [facility] with altered sensorium and decreased responsiveness. Decreased responsive and not eating at all for 2 days. Patient has failure to thrive, altered mentation and weight loss of 20 pounds since 12/08/2018. Now being managed for Severe Sepsis due to Necrotizing Unstagable sacral decubitus ulcer with ostemomylitis, need abx till 02/16/19. need isolation SNF bed on discharge. --ESRD on HD: Nephology , hemodialysis per schedule --Necrotizing Unstagable sacral decubitus ulcer with ostemomylitis On 01/01/2019 open excisional debridement of necrotic and infected sacral wound noted a large amount of necrotic tissue debrided and two abscess cavities at the caudad portion of the wound with a copious amount of purulent drainage which was drained. Wound cultures 01/02/2019 ESBL Kleb, MDR Ecoli and E raffinosus resistant to penicillin: On meropenam and vanc per ID. Consult Vascular surgery for central line placement, planned for diverting colostomy, family has agreed, Cardiology re-evaluated for surgery, input noted, high CV risk. Dr. Manohar Vick, 01/08/19, now ongoing to run till 02/16/19. Further debridement done 01/14/19. he is medically stable awaiting placement. case management working on placement. --Severe Sepsis due to sacral decubitus ulcers and osteomyelitis; antibiotics and wound care --Acute on chronic Anemia of chronic disease: s/p total of 8 units PRBC, follow cbc- no occult GI bleed noted. GI input noted, No retroperitoneal bleed noted. Although 150cc Of blood loss documented during debridement, No further bleeding from sacral wound noted, Dakins moistened kerlex packing started Pt is s/p x1 DDVAP --Atypical Chest pain, now resolved, medical management --Nonspecific Elevated troponin: Cardiology evaluated conservative management --Metabolic encephalopathy due to underlying disease process, Supportive care --Acute systolic exacerbation of CHF EF 35-40% : treat via Ultrafiltration during HD --Afib with RVR: rate control only and optimize meds per Cardiology --Insulin dependent diabetes mellitus, A1c is 4.2: insulin was dc, Accu-Chek sliding scale coverage --Severe malnutrition /hypoalbuminemia with FTT: 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, 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 Per discussion with Surgery and as documented by them Very poor prognosis for wound healing;[facility].Family not willing Patient is clinically stable for discharge to SNF However [contact isolation beds not available at SNF] History Interval history: Patient seen and examined, chart reviewed No new overnight events reported by the nursing Patient is legally blind, comfortable Has no new complaints, says he feels better Vital signs reviewed Hospitalist Physical - Constitutional Vitals: Temp Pulse Resp BP Pulse Ox 98.2 F 99 H 20 127/73 93 02/09/19 13:06 02/09/19 13:06 02/09/19 13:06 02/09/19 13:06 02/09/19 13:06 General appearance: Present: no acute distress, well-nourished - EENT Eyes: Present: PERRL, EOM intact - Neck Neck: Present: supple, normal ROM - Respiratory Respiratory effort: normal Respiratory: bilateral: diminished, negative: rales, rhonchi, wheezing - Cardiovascular Rhythm: regular Heart Sounds: Present: S1 & S2 - Extremities Extremities: no ischemia, No edema Extremity abnormal: edema - Abdominal General gastrointestinal: soft, non-tender, non-distended, normal bowel sounds, other (PEG in place/colostomy) - Integumentary Integumentary: Present: clear, warm, pale (stage IV sacral decubitus ulcer) - Psychiatric Psychiatric: cooperative, other - Neurologic Neurologic: other (residual weakness, legally blind) Results - Labs CBC & Chem 7: 02/08/19 06:09 02/08/19 06:09 Labs: Laboratory Last Values WBC 6.5 K/mm3 (4.5-11.0) 02/08/19 06:09 RBC 3.29 M/mm3 (3.65-5.03) L 02/08/19 06:09 Hgb 9.3 gm/dl (11.8-15.2) L 02/08/19 06:09 Hct 29.6 % (35.5-45.6) L 02/08/19 06:09 MCV 90 fl (84-94) 02/08/19 06:09 MCH 28 pg (28-32) 02/08/19 06:09 MCHC 31 % (32-34) L 02/08/19 06:09 RDW 19.8 % (13.2-15.2) H 02/08/19 06:09 Plt Count 309 K/mm3 (140-440) 02/08/19 06:09 Lymph % (Auto) 12.1 % (13.4-35.0) L 02/08/19 06:09 [place] % (Auto) 9.9 % (0.0-7.3) H 02/08/19 06:09 Eos % (Auto) 6.6 % (0.0-4.3) H 02/08/19 06:09 Baso % (Auto) 2.7 % (0.0-1.8) H 02/08/19 06:09 Lymph # 0.8 K/mm3 (1.2-5.4) L 02/08/19 06:09 [place] # 0.6 K/mm3 (0.0-0.8) 02/08/19 06:09 Eos # 0.4 K/mm3 (0.0-0.4) 02/08/19 06:09 Baso # 0.2 K/mm3 (0.0-0.1) H 02/08/19 06:09 Add Manual Diff Complete 01/03/19 17:16 Total Counted 100 01/03/19 17:16 Seg Neutrophils % 68.7 % (40.0-70.0) 02/08/19 06:09 Seg Neuts % (Manual) 96.0 % (40.0-70.0) H 01/03/19 17:16 0 % 01/03/19 17:16 2.0 % (13.4-35.0) L 01/03/19 17:16 Reactive Lymphs % (Man) 0 % 01/03/19 17:16 2.0 % (0.0-7.3) 01/03/19 17:16 0 % (0.0-4.3) 01/03/19 17:16 0 % (0.0-1.8) 01/03/19 17:16 0 % 01/03/19 17:16 0 % 01/03/19 17:16 0 % 01/03/19 17:16 0 % 01/03/19 17:16 Nucleated RBC % Not Reportable 01/03/19 17:16 Seg Neutrophils # 4.5 K/mm3 (1.8-7.7) 02/08/19 06:09 Seg Neutrophils # Man 10.8 K/mm3 (1.8-7.7) H 01/03/19 17:16 Band Neutrophils # 0.0 K/mm3 01/03/19 17:16 0.2 K/mm3 (1.2-5.4) L 01/03/19 17:16 Abs React Lymphs (Man) 0.0 K/mm3 01/03/19 17:16 0.2 K/mm3 (0.0-0.8) 01/03/19 17:16 0.0 K/mm3 (0.0-0.4) 01/03/19 17:16 0.0 K/mm3 (0.0-0.1) 01/03/19 17:16 0.0 K/mm3 01/03/19 17:16 0.0 K/mm3 01/03/19 17:16 0.0 K/mm3 01/03/19 17:16 Blast Cells # 0.0 K/mm3 01/03/19 17:16 WBC Morphology Not Reportable 01/03/19 17:16 Hypersegmented Neuts Not Reportable 01/03/19 17:16 Hyposegmented Neuts Not Reportable 01/03/19 17:16 Hypogranular Neuts Not Reportable 01/03/19 17:16 Not Reportable 01/03/19 17:16 Not Reportable 01/03/19 17:16 Not Reportable 01/03/19 17:16 Not Reportable 01/03/19 17:16 Not Reportable 01/03/19 17:16 Not Reportable 01/03/19 17:16 Consistent w auto 01/03/19 17:16 Not Reportable 01/03/19 17:16 Plt Clumps, EDTA Not Reportable 01/03/19 17:16 Not Reportable 01/03/19 17:16 Not Reportable 01/03/19 17:16 Not Reportable 01/03/19 17:16 Plt Morphology Comment Not Reportable 01/03/19 17:16 RBC Morphology Not Reportable 01/03/19 17:16 Dimorphic RBCs Not Reportable 01/03/19 17:16 Not Reportable 01/03/19 17:16 1+ 01/03/19 17:16 Few 01/03/19 17:16 1+ 01/03/19 17:16 Not Reportable 01/03/19 17:16 Not Reportable 01/03/19 17:16 Not Reportable 01/03/19 17:16 Not Reportable 01/03/19 17:16 Not Reportable 01/03/19 17:16 Few 01/03/19 17:16 Not Reportable 01/03/19 17:16 Few 01/03/19 17:16 Not Reportable 01/03/19 17:16 Not Reportable 01/03/19 17:16 Not Reportable 01/03/19 17:16 Not Reportable 01/03/19 17:16 Not Reportable 01/03/19 17:16 Not Reportable 01/03/19 17:16 Not Reportable 01/03/19 17:16 Acanthocytes (Spur) Not Reportable 01/03/19 17:16 Rouleaux Not Reportable 01/03/19 17:16 Not Reportable 01/03/19 17:16 Not Reportable 01/03/19 17:16 Not Reportable 01/03/19 17:16 Not Reportable 01/03/19 17:16 Hem Pathologist Commnt No 01/03/19 17:16 PT 18.0 Sec. (12.2-14.9) H 01/02/19 05:39 INR 1.39 (0.87-1.13) H 01/02/19 05:39 Sodium 137 mmol/L (137-145) 02/08/19 06:09 Potassium 4.2 mmol/L (3.6-5.0) 02/08/19 06:09 Chloride 97.2 mmol/L (98-107) L 02/08/19 06:09 Carbon Dioxide 30 mmol/L (22-30) 02/08/19 06:09 14 mmol/L 02/08/19 06:09 BUN 16 mg/dL (9-20) 02/08/19 06:09 1.8 mg/dL (0.8-1.5) H 02/08/19 06:09 Estimated GFR 46 ml/min 02/08/19 06:09 9 % 02/08/19 06:09 Glucose 93 mg/dL (75-100) 02/08/19 06:09 POC Glucose 137 (70-105) H 02/09/19 16:50 < 4.2 % (4-6) 12/26/18 17:12 Lactic Acid 1.10 mmol/L (0.7-2.0) 12/27/18 07:04 Calcium 9.4 mg/dL (8.4-10.2) 02/08/19 06:09 Phosphorus 2.90 mg/dL (2.5-4.5) D 01/05/19 04:56 Magnesium 2.10 mg/dL (1.7-2.3) 02/08/19 06:09 0.30 mg/dL (0.1-1.2) 02/08/19 06:09 AST 27 units/L (5-40) 02/08/19 06:09 ALT 7 units/L (7-56) 02/08/19 06:09 160 units/L (35-129) H 02/08/19 06:09 29 units/L (55-170) L 12/26/18 17:12 0.201 ng/mL (0.00-0.029) H* 01/21/19 08:05 6.0 g/dL (6.3-8.2) L 02/08/19 06:09 2.1 g/dL (3.9-5) L 02/08/19 06:09 0.5 % 02/08/19 06:09 Triglycerides 46 mg/dL (2-149) 01/21/19 04:23 Cholesterol 64 mg/dL (50-199) 01/21/19 04:23 34 mg/dL (50-130) L 01/21/19 04:23 27 mg/dL (40-59) L 01/21/19 04:23 2.37 % 01/21/19 04:23 PTH Intact 178.6 pg/mL (15-65) H 01/01/19 17:32 Random Vancomycin 24.9 ug/mL (0-40.0) 02/05/19 09:10 Hepatitis A IgM Ab Non-reactive (NonReactive) 01/22/19 10:34 Hep Bs Antigen Non-reactive (Negative) 01/22/19 10:34 Hep B Core IgM Ab Non-reactive (NonReactive) 01/22/19 10:34 Non-reactive (NonReactive) 01/22/19 10:34 Blood Type O POSITIVE 01/16/19 15:06 Antibody Screen Negative 01/16/19 15:06 Crossmatch See Detail 01/16/19 15:06 Active Medications - Current Medications Current Medications: Generic Name Dose Route Start Last Admin Trade Name Freq PRN Reason Stop Dose Admin Lipase/Protease/Amylase 1 each 01/28/19 14:53 Pancreaze 10,500 Unit FEEDTUBE PRN PRN For Clogged Feeding Tube Aspirin 81 mg 12/27/18 10:00 02/09/19 12:57 Halfprin Ec PO 81 mg DAILY SANCHEZ Administration Diltiazem HCl 60 mg 01/22/19 10:00 02/09/19 12:58 Cardizem PO 60 mg BID SANCHEZ Administration Diphenhydramine HCl 25 mg 01/26/19 05:54 02/07/19 21:52 Benadryl PO 25 mg Q6H PRN Administration Itching Epoetin Solitario 20,000 unit 01/05/19 11:03 02/07/19 12:13 Procrit IV 20,000 unit UMA PRN Administration hemodialysis Famotidine 20 mg 12/27/18 10:00 02/09/19 12:57 Pepcid PO 20 mg DAILY SANCHEZ Administration Folic Acid 1 mg 12/27/18 10:00 02/09/19 12:58 Folvite PO 1 mg DAILY SANCHEZ Administration Gabapentin 100 mg 12/26/18 22:00 02/08/19 21:29 Neurontin PO 100 mg QHS SANCHEZ Administration Heparin Sodium (Porcine) 5,000 unit 01/23/19 22:00 02/09/19 12:15 Heparin SUB-Q 5,000 unit Q12HR SANCHEZ Administration Hydralazine HCl 100 mg 12/26/18 22:00 02/09/19 15:23 Apresoline PO 100 mg Q8HR SANCHEZ Administration Meropenem 1,000 mg/ Sodium 100 mls @ 100 mls/hr 01/05/19 11:00 02/09/19 15:22 Chloride IV 02/16/19 10:59 100 mls/hr Q24HR SANCHEZ Administration Sodium Chloride 100 mls @ 999 mls/hr 01/19/19 09:29 Nacl 0.9% IV UMA PRN Hypotension Vancomycin HCl 500 mg/ Sodium 110 mls @ 66.667 mls/hr 02/07/19 18:00 02/07/19 17:09 Chloride IV 02/16/19 10:00 66.667 mls/hr [email or web address] SANCHEZ Administration Insulin Human Regular 0 units 02/09/19 12:00 02/09/19 13:02 Humulin R SUB-Q Not Given Q6HR [facility] Protocol Metoprolol Tartrate 100 mg 12/31/18 22:00 02/09/19 12:57 Lopressor PO 100 mg BID SANCHEZ Administration Morphine Sulfate 2 mg 01/21/19 04:08 02/08/19 17:23 Morphine IV 2 mg Q4H PRN Administration Pain, Moderate (4-6) Nitroglycerin 0.4 mg 01/21/19 04:05 01/21/19 04:15 Nitrostat SL 0.4 mg .Q5MIN PRN Administration Chest Pain Oxycodone/Acetaminophen 1 tab 01/05/19 08:30 02/08/19 21:27 Percocet 5/325 PO 1 tab Q6H PRN Administration Pain, Moderate (4-6) Risperidone 0.5 mg 12/26/18 22:00 02/08/19 21:30 Risperdal PO 0.5 mg QHS SANCHEZ Administration Risperidone 1 mg 01/31/19 10:30 02/09/19 12:58 Risperdal PO 1 mg QAM SANCHEZ Administration Sertraline HCl 100 mg 12/27/18 10:00 02/09/19 12:56 Zoloft PO 100 mg QDAY SANCHEZ Administration Simple Syrup 15 ml 01/28/19 14:53 Simple Syrup FEEDTUBE PRN PRN Hypoglycemia Simple Syrup 30 ml 01/28/19 14:53 Simple Syrup FEEDTUBE PRN PRN Hypoglycemia Sodium Bicarbonate 325 mg 01/28/19 14:53 Sodium Bicarbonate FEEDTUBE PRN PRN For Clogged Feeding Tube Sodium Chloride 10 ml 12/26/18 22:00 02/09/19 13:01 Sodium Chloride Flush Syringe 10 Ml IV 10 ml BID SANCHEZ Administration Sodium Hypochlorite 1 applic 01/19/19 10:00 02/09/19 13:01 Dakin's Half Strength TP 1 applicatio QDAY SANCHEZ Administration Nutrition/Malnutrition Assess - Dietary Evaluation Nutrition/Malnutrition Findings: Nutrition Notes Start: 12/27/18 17:15 Freq: Status: Active Protocol: Document 02/06/19 21:52 RM (Rec: 02/06/19 21:54 RM [id number]) Nutrition Notes Initial or Follow up Reassessment Current Diagnosis CKD (stage V CKD),Diabetes, Sepsis,Hypertension Other Pertinent Diagnosis Necrotizing sacral decubitus ulcer with osteomyelitis Current Diet TF - Nepro at 45ml/hr Labs/Tests Reviewed Pertinent Medications Reviewed Height 5 ft 7 in Weight 86.6 kg [place] Body Weight (kg) 67.27 BMI 29.9 Subjective/Other Information Observed Nepro infusing at goal rate. Percent of energy/protein needs met: 100%/81% Burn Absent Trauma Absent #2 Nutrition Diagnosis Increased nutrient needs ( specify in comment below) Diagnosis Progress(for reassessment Continues documentation) #1 Nutrition Diagnosis Inadequate oral intake Diagnosis Progress(for reassessment Continues documentation) Is patient on ventilator? No Is Patient Ambulatory and/or Out of Bed No REE-([facility]-confined to bed) [phone] Calculation Used for Recommendations [facility] Additional Notes Pro needs 1.2-1.4g/k- 129g/day Fluid needs 1-1.5L/day Nutrition Intervention Nutrition Support: Continue Nepro at 45 ml/hr. Water flush of 150 mls q 4 hrs . Kcal 1,944 Protein (gm) 87 Fluid (mL) 785 Goal #1 TF tolerance Goal #2 TF to continue to meet at least 75% of calorie and protein needs Anticipated Discharge Needs: Nepro Follow-Up By: 02/13/19 Additional Comments Follow for TF tolerance
[2019-02-09] MEDS: NEURONTIN PO SCH (22:34)
[2019-02-10] MEDS: HumuLIN R SUB-Q SCH ×4 (01:32→18:52)
[2019-02-10] MEDS: APRESOLINE PO SCH ×3 (06:36→22:41)
[2019-02-10 08:12] LABS: Basophils % (Auto) 0.3 % (0.0-1.8); Eosinophils # (Auto) 0.5 K/mm3 (0.0-0.4); Eosinophils % (Auto) 6.4 % (0.0-4.3); Hematocrit 27.8 % (35.5-45.6); Hemoglobin 8.8 gm/dl (11.8-15.2); Lymphocytes # (Auto) 0.7 K/mm3 (1.2-5.4); Lymphocytes % (Auto) 8.3 % (13.4-35.0); Mean Corpuscular HGB Conc 32 % (32-34); Mean Corpuscular Volume 89 fl (84-94); Monocytes # (Auto) 0.8 K/mm3 (0.0-0.8); Monocytes % (Auto) 9.7 % (0.0-7.3); Platelet Count 300 K/mm3 (140-440); Red Blood Count 3.14 M/mm3 (3.65-5.03)
[2019-02-10 08:40] LABS: Albumin 2.1 g/dL (3.9-5); BUN/Creatinine Ratio 11; Blood Urea Nitrogen 33 mg/dL (9-20); Calcium 9.6 mg/dL (8.4-10.2); Hemolysis Index 12
[2019-02-10 08:41] LABS: Alanine Aminotransferase < 5 units/L (7-56)
[2019-02-10] MEDS: PROCRIT IV PRN (12:01)
[2019-02-10] MEDS: LOPRESSOR PO SCH ×2 (13:26→22:43)
[2019-02-10] MEDS: FOLVITE PO SCH (13:26)
[2019-02-10] MEDS: PEPCID PO SCH (13:26)
[2019-02-10] MEDS: ZOLOFT PO SCH (13:26)
[2019-02-10] MEDS: RisperDAL PO SCH ×2 (13:26→22:41)
[2019-02-10] MEDS: HALFPRIN EC PO SCH (13:26)
[2019-02-10] MEDS: CARDIZEM PO SCH ×2 (13:26→22:41)
[2019-02-10] MEDS: MERREM 1,000 MG in NACL 0.9% 100 ML IV SCH (13:27)
[2019-02-10] MEDS: HEPARIN SUB-Q SCH ×2 (13:28→22:43)
[2019-02-10] MEDS: SODIUM CHLORIDE FLUSH SYRINGE 10 ML IV SCH ×2 (13:29→22:44)
[2019-02-10] MEDS: DAKIN'S HALF STRENGTH TP SCH (13:30)
--- NOTE | 2019-02-10 15:26 | Progress Note ---
Assessment and Plan - Patient Problems (1) ESRD (end stage renal disease) Current Visit: Yes Status: Acute Plan to address problem: END-STAGE RENAL DISEASE. DIALYSIS ACCESS RIGHT tunnel dialysis catheter continue hemodialysis Saturday, , Saturday (2) CHF (congestive heart failure) Current Visit: Yes Status: Acute Qualifiers: Heart failure type: unspecified Heart failure chronicity: acute on chronic Qualified Code(s): I50.9 - Heart failure, unspecified Plan to address problem: Chronic Congestive heart failure: continue current medications. (3) Anemia in ESRD (end-stage renal disease) Current Visit: Yes Status: Chronic Plan to address problem: moderate Anemia due to chronic kidney disease Hb: 9.3g/dl continue epogen [id number] q TTS monitor cbc (4) Decubitus ulcer of sacral region, unstageable Current Visit: Yes Status: Acute Plan to address problem: Large decubitus ulcer wound cultures with polymicrobial growth s/p diverting colostomy continue antibiotics with meropenem. Subjective Principal diagnosis: afib Interval history: 63 year old with medical history significant for HTN, dementia, ESRD on hemodialysis TTS via a Right IJ Perm cath . with infected decubitus ulcers . Patient seen today I attest I saw the patient on hemodialysis at 10 AM edema improved He complains of being hungry denies any nausea vomiting or abdominal pain Objective - Vital Signs Vital signs: Vital Signs - 12hr 02/10/19 02/10/19 02/10/19 05:17 06:33 08:55 Temperature 97.6 F 98.7 F Pulse Rate 71 79 78 Respiratory 18 18 Rate Blood Pressure 128/70 Blood Pressure 135/71 [Left] O2 Sat by Pulse 100 100 Oximetry 02/10/19 02/10/19 02/10/19 09:00 09:15 09:30 Temperature Pulse Rate 78 80 77 Respiratory Rate Blood Pressure 127/61 125/64 130/62 Blood Pressure [Left] O2 Sat by Pulse Oximetry 02/10/19 02/10/19 02/10/19 09:45 10:00 10:15 Temperature Pulse Rate 81 83 81 Respiratory Rate Blood Pressure 137/63 129/70 139/73 Blood Pressure [Left] O2 Sat by Pulse Oximetry 02/10/19 02/10/19 02/10/19 10:30 10:45 11:00 Temperature Pulse Rate 82 81 82 Respiratory Rate Blood Pressure 131/68 138/68 131/65 Blood Pressure [Left] O2 Sat by Pulse Oximetry 02/10/19 02/10/19 02/10/19 11:15 11:30 11:45 Temperature Pulse Rate 81 85 91 H Respiratory Rate Blood Pressure 136/66 129/71 139/65 Blood Pressure [Left] O2 Sat by Pulse Oximetry 02/10/19 02/10/19 02/10/19 12:00 12:18 13:01 Temperature 98.2 F 98.3 F Pulse Rate 98 H 86 83 Respiratory 18 20 Rate Blood Pressure 133/61 138/62 137/61 Blood Pressure [Left] O2 Sat by Pulse 98 Oximetry - General Appearance General appearance: well-developed, well-nourished, chronically ill, frail EENT: ATNC, PERRL Neck: no JVD Respiratory: Present: Clear to Ascultation Cardiology: regular, S1S2 Gastrointestinal: normal, normoactive bowel sounds, other (colostomy) Integumentary: no rash Neurologic: other Musculoskeletal: other (decubitus ulcer) Psychiatric: mood/affect appropriate, cooperative - Lab 02/10/19 07:33 02/10/19 07:33 Most recent lab results Calcium 9.6 mg/dL (8.4-10.2) 02/10/19 07:33 Phosphorus 2.90 mg/dL (2.5-4.5) D 01/05/19 04:56 Magnesium 2.10 mg/dL (1.7-2.3) 02/08/19 06:09 Medications & Allergies - Medications Allergies/Adverse Reactions: Allergies haloperidol [From Haldol] Adverse Reaction (Verified 03/13/18 12:10) Unknown haloperidol lactate [From Haldol] Adverse Reaction (Verified 03/13/18 12:10) Unknown Home Medications: Home Medications Medication Instructions Recorded Confirmed Last Taken Type risperiDONE [RisperDAL] 1 mg PO QAM 03/13/18 12/27/18 Unknown History Sertraline [Zoloft] 100 mg PO QDAY 08/26/18 12/27/18 Unknown History risperiDONE [RisperDAL] 0.5 mg PO HS 08/26/18 12/27/18 Unknown History Polyethylene Glycol 3350 [Miralax 17 gm PO QDAY #30 packet 11/05/18 12/27/18 Unknown Rx 3350] Aspirin EC 81 mg PO DAILY #30 11/19/18 12/27/18 Unknown Rx Docusate Sodium [Colace CAP] 100 mg PO BID #60 11/19/18 12/27/18 Unknown Rx Folic Acid [Folvite] 1 mg PO DAILY #30 tab 11/19/18 12/27/18 Unknown Rx Famotidine [Pepcid] 20 mg PO DAILY tablet 12/08/18 12/27/18 Unknown Rx Gabapentin [Neurontin] 100 mg PO QHS capsule 12/08/18 12/27/18 Unknown Rx Metoprolol [Lopressor TAB] 50 mg PO BID 30 Days tablet 12/08/18 12/27/18 Unknown Rx Sevelamer Carbonate [Renvela] 800 mg PO TIDWM tablet 12/08/18 12/27/18 Unknown Rx hydrALAZINE [Apresoline TAB] 100 mg PO Q8HR #120 tablet 12/08/18 12/27/18 Unknown Rx Acetaminophen [Acetaminophen TAB] 650 mg PO Q12H PRN 12/15/18 12/27/18 Unknown History Amino Acids/Protein Hydrolys 30 ml PO BID 12/15/18 12/27/18 Unknown History [Pro-Stat Sugar Free Liquid] Glucagon,Human Recombinant 1 mg IJ Q15MIN PRN 12/15/18 12/27/18 Unknown History [Glucagon Emergency Kit] Insulin Aspart [NovoLOG 100 See Protocol SQ QWEEK 12/15/18 12/27/18 Unknown History UNITS/ML VIAL] Epoetin Solitario 10,000 Unit [Procrit] 10,000 unit IV UMA PRN vial 12/18/18 12/27/18 Unknown Rx Lispro Insulin [HumaLOG] 0 unit SUB-Q ACHS units 12/18/18 12/27/18 Unknown Rx risperiDONE [RisperDAL] 0.5 mg PO QHS tablet 12/18/18 12/27/18 Unknown Rx Meropenem [Merrem] 1,000 mg IV Q24HR vial 01/16/19 Unknown Rx Active Medications: Generic Name Dose Route Start Last Admin Trade Name Freq PRN Reason Stop Dose Admin Lipase/Protease/Amylase 1 each 01/28/19 14:53 Pancrejewel Barrientos 10,500 Unit FEEDTUBE PRN PRN For Clogged Feeding Tube Aspirin 81 mg 12/27/18 10:00 02/10/19 13:26 Halfprin Ec PO 81 mg DAILY SANCHEZ Administration Diltiazem HCl 60 mg 01/22/19 10:00 02/10/19 13:26 Cardizem PO 60 mg BID SANCHEZ Administration Diphenhydramine HCl 25 mg 01/26/19 05:54 02/07/19 21:52 Benadryl PO 25 mg Q6H PRN Administration Itching Epoetin Solitario 20,000 unit 01/05/19 11:03 02/10/19 12:01 Procrit IV 20,000 unit UMA PRN Administration hemodialysis Famotidine 20 mg 12/27/18 10:00 02/10/19 13:26 Pepcid PO 20 mg DAILY SANCHEZ Administration Folic Acid 1 mg 12/27/18 10:00 02/10/19 13:26 Folvite PO 1 mg DAILY SANCHEZ Administration Gabapentin 100 mg 12/26/18 22:00 02/09/19 22:34 Neurontin PO 100 mg QHS SANCHEZ Administration Heparin Sodium (Porcine) 5,000 unit 01/23/19 22:00 02/10/19 13:28 Heparin SUB-Q 5,000 unit Q12HR SANCHEZ Administration Hydralazine HCl 100 mg 12/26/18 22:00 02/10/19 13:25 Apresoline PO 100 mg Q8HR SANCHEZ Administration Meropenem 1,000 mg/ Sodium 100 mls @ 100 mls/hr 01/05/19 11:00 02/10/19 13:27 Chloride IV 02/16/19 10:59 100 mls/hr Q24HR SANCHEZ Administration Sodium Chloride 100 mls @ 999 mls/hr 01/19/19 09:29 Nacl 0.9% IV UMA PRN Hypotension Vancomycin HCl 500 mg/ Sodium 110 mls @ 66.667 mls/hr 02/07/19 18:00 02/07/19 17:09 Chloride IV 02/16/19 10:00 66.667 mls/hr [id number] SANCHEZ Administration Insulin Human Regular 0 units 02/09/19 12:00 02/10/19 12:12 Humulin R SUB-Q Not Given Q6HR [facility] Protocol Metoprolol Tartrate 100 mg 12/31/18 22:00 02/10/19 13:26 Lopressor PO 100 mg BID SANCHEZ Administration Morphine Sulfate 2 mg 01/21/19 04:08 02/08/19 17:23 Morphine IV 2 mg Q4H PRN Administration Pain, Moderate (4-6) Nitroglycerin 0.4 mg 01/21/19 04:05 01/21/19 04:15 Nitrostat SL 0.4 mg .Q5MIN PRN Administration Chest Pain Oxycodone/Acetaminophen 1 tab 01/05/19 08:30 02/08/19 21:27 Percocet 5/325 PO 1 tab Q6H PRN Administration Pain, Moderate (4-6) Risperidone 0.5 mg 12/26/18 22:00 02/09/19 22:35 Risperdal PO 0.5 mg QHS SANCHEZ Administration Risperidone 1 mg 01/31/19 10:30 02/10/19 13:26 Risperdal PO 1 mg QAM SANCHEZ Administration Sertraline HCl 100 mg 12/27/18 10:00 02/10/19 13:26 Zoloft PO 100 mg QDAY SANCHEZ Administration Simple Syrup 15 ml 01/28/19 14:53 Simple Syrup FEEDTUBE PRN PRN Hypoglycemia Simple Syrup 30 ml 01/28/19 14:53 Simple Syrup FEEDTUBE PRN PRN Hypoglycemia Sodium Bicarbonate 325 mg 01/28/19 14:53 Sodium Bicarbonate FEEDTUBE PRN PRN For Clogged Feeding Tube Sodium Chloride 10 ml 12/26/18 22:00 02/10/19 13:29 Sodium Chloride Flush Syringe 10 Ml IV 10 ml BID SANCHEZ Administration Sodium Hypochlorite 1 applic 01/19/19 10:00 02/10/19 13:30 Dakin's Half Strength TP 1 applicatio QDAY SANCHEZ Administration
--- NOTE | 2019-02-10 16:10 | Progress Note ---
Assessment and Plan Assessment and plan: Patient is a 63-year-old -[place] man from [facility] with a plethora of co-morbidities including blindness, CVA, CHF, PPM/ICD, loop recorder since 2013 that is MRI compatible, IDDM type 2, sepsis left foot ulcer, afib, ESRD with complications on HD TTS, hypertension, AOCD and GERD who presented to [facility] with altered sensorium and decreased responsiveness. Decreased responsive and not eating at all for 2 days. Patient has failure to thrive, altered mentation and weight loss of 20 pounds since 12/08/2018. Now being managed for Severe Sepsis due to Necrotizing Unstagable sacral decubitus ulcer with ostemomylitis, need abx till 02/16/19. need isolation SNF bed on discharge. --ESRD on HD: Nephology , hemodialysis per schedule --Necrotizing Unstagable sacral decubitus ulcer with ostemomylitis On 01/01/2019 open excisional debridement of necrotic and infected sacral wound noted a large amount of necrotic tissue debrided and two abscess cavities at the caudad portion of the wound with a copious amount of purulent drainage which was drained. Wound cultures 01/02/2019 ESBL Kleb, MDR Ecoli and E raffinosus resistant to penicillin: On meropenam and vanc per ID. Consult Vascular surgery for central line placement, planned for diverting colostomy, family has agreed, Cardiology re-evaluated for surgery, input noted, high CV risk. Dr. Manohar Vick, 01/08/19, now ongoing to run till 02/16/19. Further debridement done 01/14/19. he is medically stable awaiting placement. case management working on placement. --Severe Sepsis due to sacral decubitus ulcers and osteomyelitis; antibiotics and wound care --Acute on chronic Anemia of chronic disease: s/p total of 8 units PRBC, follow cbc- no occult GI bleed noted. GI input noted, No retroperitoneal bleed noted. Although 150cc Of blood loss documented during debridement, No further bleeding from sacral wound noted, Dakins moistened kerlex packing started Pt is s/p x1 DDVAP --Atypical Chest pain, now resolved, medical management --Nonspecific Elevated troponin: Cardiology evaluated conservative management --Metabolic encephalopathy due to underlying disease process, Supportive care --Acute systolic exacerbation of CHF EF 35-40% : treat via Ultrafiltration during HD --Afib with RVR: rate control only and optimize meds per Cardiology --Insulin dependent diabetes mellitus, A1c is 4.2: insulin was dc, Accu-Chek sliding scale coverage --Severe malnutrition /hypoalbuminemia with FTT: 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, pathology laboratory technologist following PEG placed on 01/02/19 --Hypertension: Well-controlled on current antihypertensives --h/o Peripheral neuropathy: Continue gabapentin --DVT prophylaxis On heparin and GI prophylaxis Very Poor prognosis discussed with family member Mr Jennifer Mims. Per discussion with Surgery and as documented by them Very poor prognosis for wound healing;[facility].Family not willing Patient is clinically stable for discharge to SNF However [contact isolation beds not available at [facility]] History Interval history: Patient seen and examined in his room this morning medical records reviewed Patient feels better no new complaints, legally blind Responding appropriately, not in acute distress Vital signs reviewed Hospitalist Physical - Constitutional Vitals: Temp Pulse Resp BP Pulse Ox 98.3 F 83 20 137/61 98 02/10/19 13:01 02/10/19 13:01 02/10/19 13:01 02/10/19 13:01 02/10/19 13:01 General appearance: Present: no acute distress, well-nourished - EENT Eyes: Present: PERRL, EOM intact - Neck Neck: Present: supple, normal ROM - Respiratory Respiratory effort: normal Respiratory: bilateral: diminished, negative: rales, rhonchi, wheezing - Cardiovascular Rhythm: regular Heart Sounds: Present: S1 & S2 - Extremities Extremities: no ischemia, abnormal (chronic changes) - Abdominal General gastrointestinal: soft, non-tender, non-distended, normal bowel sounds, other (PEG in place, Colostomy intact) - Integumentary Integumentary: Present: clear, warm (Stage IV decubitus) - Psychiatric Psychiatric: cooperative - Neurologic Neurologic: other (legally blind,bed bound) Results - Labs CBC & Chem 7: 02/10/19 07:33 02/10/19 07:33 Labs: Laboratory Last Values WBC 8.5 K/mm3 (4.5-11.0) 02/10/19 07:33 RBC 3.14 M/mm3 (3.65-5.03) L 02/10/19 07:33 Hgb 8.8 gm/dl (11.8-15.2) L 02/10/19 07:33 Hct 27.8 % (35.5-45.6) L 02/10/19 07:33 MCV 89 fl (84-94) 02/10/19 07:33 MCH 28 pg (28-32) 02/10/19 07:33 MCHC 32 % (32-34) 02/10/19 07:33 RDW 20.0 % (13.2-15.2) H 02/10/19 07:33 Plt Count 300 K/mm3 (140-440) 02/10/19 07:33 Lymph % (Auto) 8.3 % (13.4-35.0) L 02/10/19 07:33 Pettis % (Auto) 9.7 % (0.0-7.3) H 02/10/19 07:33 Eos % (Auto) 6.4 % (0.0-4.3) H 02/10/19 07:33 Baso % (Auto) 0.3 % (0.0-1.8) 02/10/19 07:33 Lymph # 0.7 K/mm3 (1.2-5.4) L 02/10/19 07:33 Pettis # 0.8 K/mm3 (0.0-0.8) 02/10/19 07:33 Eos # 0.5 K/mm3 (0.0-0.4) H 02/10/19 07:33 Baso # 0.0 K/mm3 (0.0-0.1) 02/10/19 07:33 Add Manual Diff Complete 01/03/19 17:16 Total Counted 100 01/03/19 17:16 Seg Neutrophils % 75.3 % (40.0-70.0) H 02/10/19 07:33 Seg Neuts % (Manual) 96.0 % (40.0-70.0) H 01/03/19 17:16 0 % 01/03/19 17:16 2.0 % (13.4-35.0) L 01/03/19 17:16 Reactive Lymphs % (Man) 0 % 01/03/19 17:16 2.0 % (0.0-7.3) 01/03/19 17:16 0 % (0.0-4.3) 01/03/19 17:16 0 % (0.0-1.8) 01/03/19 17:16 0 % 01/03/19 17:16 0 % 01/03/19 17:16 0 % 01/03/19 17:16 0 % 01/03/19 17:16 Nucleated RBC % Not Reportable 01/03/19 17:16 Seg Neutrophils # 6.4 K/mm3 (1.8-7.7) 02/10/19 07:33 Seg Neutrophils # Man 10.8 K/mm3 (1.8-7.7) H 01/03/19 17:16 Band Neutrophils # 0.0 K/mm3 01/03/19 17:16 0.2 K/mm3 (1.2-5.4) L 01/03/19 17:16 Abs React Lymphs (Man) 0.0 K/mm3 01/03/19 17:16 0.2 K/mm3 (0.0-0.8) 01/03/19 17:16 0.0 K/mm3 (0.0-0.4) 01/03/19 17:16 0.0 K/mm3 (0.0-0.1) 01/03/19 17:16 0.0 K/mm3 01/03/19 17:16 0.0 K/mm3 01/03/19 17:16 0.0 K/mm3 01/03/19 17:16 Blast Cells # 0.0 K/mm3 01/03/19 17:16 WBC Morphology Not Reportable 01/03/19 17:16 Hypersegmented Neuts Not Reportable 01/03/19 17:16 Hyposegmented Neuts Not Reportable 01/03/19 17:16 Hypogranular Neuts Not Reportable 01/03/19 17:16 Not Reportable 01/03/19 17:16 Not Reportable 01/03/19 17:16 Not Reportable 01/03/19 17:16 Not Reportable 01/03/19 17:16 Not Reportable 01/03/19 17:16 Not Reportable 01/03/19 17:16 Consistent w auto 01/03/19 17:16 Not Reportable 01/03/19 17:16 Plt Clumps, EDTA Not Reportable 01/03/19 17:16 Not Reportable 01/03/19 17:16 Not Reportable 01/03/19 17:16 Not Reportable 01/03/19 17:16 Plt Morphology Comment Not Reportable 01/03/19 17:16 RBC Morphology Not Reportable 01/03/19 17:16 Dimorphic RBCs Not Reportable 01/03/19 17:16 Not Reportable 01/03/19 17:16 1+ 01/03/19 17:16 Few 01/03/19 17:16 1+ 01/03/19 17:16 Not Reportable 01/03/19 17:16 Not Reportable 01/03/19 17:16 Not Reportable 01/03/19 17:16 Not Reportable 01/03/19 17:16 Not Reportable 01/03/19 17:16 Few 01/03/19 17:16 Not Reportable 01/03/19 17:16 Few 01/03/19 17:16 Not Reportable 01/03/19 17:16 Not Reportable 01/03/19 17:16 Not Reportable 01/03/19 17:16 Not Reportable 01/03/19 17:16 Not Reportable 01/03/19 17:16 Not Reportable 01/03/19 17:16 Not Reportable 01/03/19 17:16 Acanthocytes (Spur) Not Reportable 01/03/19 17:16 Rouleaux Not Reportable 01/03/19 17:16 Not Reportable 01/03/19 17:16 Not Reportable 01/03/19 17:16 Not Reportable 01/03/19 17:16 Not Reportable 01/03/19 17:16 Hem Pathologist Commnt No 01/03/19 17:16 PT 18.0 Sec. (12.2-14.9) H 01/02/19 05:39 INR 1.39 (0.87-1.13) H 01/02/19 05:39 Sodium 137 mmol/L (137-145) 02/10/19 07:33 Potassium 4.3 mmol/L (3.6-5.0) 02/10/19 07:33 Chloride 99.4 mmol/L (98-107) 02/10/19 07:33 Carbon Dioxide 30 mmol/L (22-30) 02/10/19 07:33 12 mmol/L 02/10/19 07:33 BUN 33 mg/dL (9-20) H 02/10/19 07:33 2.9 mg/dL (0.8-1.5) H D 02/10/19 07:33 Estimated GFR 27 ml/min 02/10/19 07:33 11 % 02/10/19 07:33 Glucose 91 mg/dL (75-100) 02/10/19 07:33 POC Glucose 144 (70-105) H 02/10/19 12:05 < 4.2 % (4-6) 12/26/18 17:12 Lactic Acid 1.10 mmol/L (0.7-2.0) 12/27/18 07:04 Calcium 9.6 mg/dL (8.4-10.2) 02/10/19 07:33 Phosphorus 2.90 mg/dL (2.5-4.5) D 01/05/19 04:56 Magnesium 2.10 mg/dL (1.7-2.3) 02/08/19 06:09 0.20 mg/dL (0.1-1.2) 02/10/19 07:33 AST 14 units/L (5-40) 02/10/19 07:33 ALT < 5 units/L (7-56) L 02/10/19 07:33 147 units/L (35-129) H 02/10/19 07:33 29 units/L (55-170) L 12/26/18 17:12 0.201 ng/mL (0.00-0.029) H* 01/21/19 08:05 6.0 g/dL (6.3-8.2) L 02/10/19 07:33 2.1 g/dL (3.9-5) L 02/10/19 07:33 0.5 % 02/10/19 07:33 Triglycerides 46 mg/dL (2-149) 01/21/19 04:23 Cholesterol 64 mg/dL (50-199) 01/21/19 04:23 34 mg/dL (50-130) L 01/21/19 04:23 27 mg/dL (40-59) L 01/21/19 04:23 2.37 % 01/21/19 04:23 PTH Intact 178.6 pg/mL (15-65) H 01/01/19 17:32 Random Vancomycin 24.9 ug/mL (0-40.0) 02/05/19 09:10 Hepatitis A IgM Ab Non-reactive (NonReactive) 01/22/19 10:34 Hep Bs Antigen Non-reactive (Negative) 01/22/19 10:34 Hep B Core IgM Ab Non-reactive (NonReactive) 01/22/19 10:34 Non-reactive (NonReactive) 01/22/19 10:34 Blood Type O POSITIVE 01/16/19 15:06 Antibody Screen Negative 01/16/19 15:06 Crossmatch See Detail 01/16/19 15:06 Active Medications - Current Medications Current Medications: Generic Name Dose Route Start Last Admin Trade Name Freq PRN Reason Stop Dose Admin Lipase/Protease/Amylase 1 each 01/28/19 14:[address] 10,500 Unit FEEDTUBE PRN PRN For Clogged Feeding Tube Aspirin 81 mg 12/27/18 10:00 02/10/19 13:26 Halfprin Ec PO 81 mg DAILY SANCHEZ Administration Diltiazem HCl 60 mg 01/22/19 10:00 02/10/19 13:26 Cardizem PO 60 mg BID SANCHEZ Administration Diphenhydramine HCl 25 mg 01/26/19 05:54 02/07/19 21:52 Benadryl PO 25 mg Q6H PRN Administration Itching Epoetin Solitario 20,000 unit 01/05/19 11:03 02/10/19 12:01 Procrit IV 20,000 unit UMA PRN Administration hemodialysis Famotidine 20 mg 12/27/18 10:00 02/10/19 13:26 Pepcid PO 20 mg DAILY SANCHEZ Administration Folic Acid 1 mg 12/27/18 10:00 02/10/19 13:26 Folvite PO 1 mg DAILY SANCHEZ Administration Gabapentin 100 mg 12/26/18 22:00 02/09/19 22:34 Neurontin PO 100 mg QHS SANCHEZ Administration Heparin Sodium (Porcine) 5,000 unit 01/23/19 22:00 02/10/19 13:28 Heparin SUB-Q 5,000 unit Q12HR SANCHEZ Administration Hydralazine HCl 100 mg 12/26/18 22:00 02/10/19 13:25 Apresoline PO 100 mg Q8HR SANCHEZ Administration Meropenem 1,000 mg/ Sodium 100 mls @ 100 mls/hr 01/05/19 11:00 02/10/19 13:27 Chloride IV 02/16/19 10:59 100 mls/hr Q24HR SANCHEZ Administration Sodium Chloride 100 mls @ 999 mls/hr 01/19/19 09:29 Nacl 0.9% IV UMA PRN Hypotension Vancomycin HCl 500 mg/ Sodium 110 mls @ 66.667 mls/hr 02/07/19 18:00 02/07/19 17:09 Chloride IV 02/16/19 10:00 66.667 mls/hr [id number] SANCHEZ Administration Insulin Human Regular 0 units 02/09/19 12:00 02/10/19 12:12 Humulin R SUB-Q Not Given Q6HR [facility] Protocol Metoprolol Tartrate 100 mg 12/31/18 22:00 02/10/19 13:26 Lopressor PO 100 mg BID SANCHEZ Administration Morphine Sulfate 2 mg 01/21/19 04:08 02/08/19 17:23 Morphine IV 2 mg Q4H PRN Administration Pain, Moderate (4-6) Nitroglycerin 0.4 mg 01/21/19 04:05 01/21/19 04:15 Nitrostat SL 0.4 mg .Q5MIN PRN Administration Chest Pain Oxycodone/Acetaminophen 1 tab 01/05/19 08:30 02/08/19 21:27 Percocet 5/325 PO 1 tab Q6H PRN Administration Pain, Moderate (4-6) Risperidone 0.5 mg 12/26/18 22:00 02/09/19 22:35 Risperdal PO 0.5 mg QHS SANCHEZ Administration Risperidone 1 mg 01/31/19 10:30 02/10/19 13:26 Risperdal PO 1 mg QAM SANCHEZ Administration Sertraline HCl 100 mg 12/27/18 10:00 02/10/19 13:26 Zoloft PO 100 mg QDAY SANCHEZ Administration Simple Syrup 15 ml 01/28/19 14:53 Simple Syrup FEEDTUBE PRN PRN Hypoglycemia Simple Syrup 30 ml 01/28/19 14:53 Simple Syrup FEEDTUBE PRN PRN Hypoglycemia Sodium Bicarbonate 325 mg 01/28/19 14:53 Sodium Bicarbonate FEEDTUBE PRN PRN For Clogged Feeding Tube Sodium Chloride 10 ml 12/26/18 22:00 02/10/19 13:29 Sodium Chloride Flush Syringe 10 Ml IV 10 ml BID SANCHEZ Administration Sodium Hypochlorite 1 applic 01/19/19 10:00 02/10/19 13:30 Dakin's Half Strength TP 1 applicatio QDAY SANCHEZ Administration Nutrition/Malnutrition Assess - Dietary Evaluation Nutrition/Malnutrition Findings: Nutrition Notes Start: 12/27/18 17:15 Freq: Status: Active Protocol: Document 02/06/19 21:52 RM (Rec: 02/06/19 21:54 RM [id number]) Nutrition Notes Initial or Follow up Reassessment Current Diagnosis CKD (stage V CKD),Diabetes, Sepsis,Hypertension Other Pertinent Diagnosis Necrotizing sacral decubitus ulcer with osteomyelitis Current Diet TF - Nepro at 45ml/hr Labs/Tests Reviewed Pertinent Medications Reviewed Height 5 ft 7 in Weight 86.6 kg [place] Body Weight (kg) 67.27 BMI 29.9 Subjective/Other Information Observed Nepro infusing at goal rate. Percent of energy/protein needs met: 100%/81% Burn Absent Trauma Absent #2 Nutrition Diagnosis Increased nutrient needs ( specify in comment below) Diagnosis Progress(for reassessment Continues documentation) #1 Nutrition Diagnosis Inadequate oral intake Diagnosis Progress(for reassessment Continues documentation) Is patient on ventilator? No Is Patient Ambulatory and/or Out of Bed No REE-([facility]-confined to bed) 5572.656 Calculation Used for Recommendations [facility] Additional Notes Pro needs 1.2-1.4g/k- 129g/day Fluid needs 1-1.5L/day Nutrition Intervention Nutrition Support: Continue Nepro at 45 ml/hr. Water flush of 150 mls q 4 hrs . Kcal 1,944 Protein (gm) 87 Fluid (mL) 785 Goal #1 TF tolerance Goal #2 TF to continue to meet at least 75% of calorie and protein needs Anticipated Discharge Needs: Nepro Follow-Up By: 02/13/19 Additional Comments Follow for TF tolerance
[2019-02-10] MEDS ORDERED: NACL 0.9 (PRIMING MACHINE ONLY DIALYSIS) MC ONE (18:42)
[2019-02-10] MEDS: PERCOCET 5/325 PO PRN (18:51)
[2019-02-10] MEDS: VANCOMYCIN 500 MG in NACL 0.9% 100 ML IV SCH (18:52)
[2019-02-10] MEDS: NEURONTIN PO SCH (22:41)
[2019-02-11] MEDS: HumuLIN R SUB-Q SCH ×4 (02:02→18:00)
[2019-02-11] MEDS: APRESOLINE PO SCH ×2 (05:36→14:47)
[2019-02-11] MEDS: ZOLOFT PO SCH (10:58)
[2019-02-11] MEDS: CARDIZEM PO SCH ×2 (10:58→22:28)
[2019-02-11] MEDS: PEPCID PO SCH (10:58)
[2019-02-11] MEDS: HALFPRIN EC PO SCH (10:58)
[2019-02-11] MEDS: LOPRESSOR PO SCH ×2 (10:58→22:28)
[2019-02-11] MEDS: FOLVITE PO SCH (10:59)
[2019-02-11] MEDS: HEPARIN SUB-Q SCH ×2 (10:59→22:28)
[2019-02-11] MEDS: DAKIN'S HALF STRENGTH TP SCH (11:00)
[2019-02-11] MEDS: SODIUM CHLORIDE FLUSH SYRINGE 10 ML IV SCH ×2 (11:02→22:28)
[2019-02-11] MEDS: RisperDAL PO SCH ×2 (11:02→22:28)
[2019-02-11] MEDS: MERREM 1,000 MG in NACL 0.9% 100 ML IV SCH (11:10)
--- NOTE | 2019-02-11 14:45 | Progress Note ---
Assessment and Plan - Patient Problems (1) ESRD (end stage renal disease) Current Visit: Yes Status: Acute Plan to address problem: END-STAGE RENAL DISEASE. DIALYSIS ACCESS RIGHT tunnel dialysis catheter continue hemodialysis Saturday, , Saturday (2) CHF (congestive heart failure) Current Visit: Yes Status: Acute Qualifiers: Heart failure type: unspecified Heart failure chronicity: acute on chronic Qualified Code(s): I50.9 - Heart failure, unspecified Plan to address problem: Chronic Congestive heart failure: continue current medications. (3) Anemia in ESRD (end-stage renal disease) Current Visit: Yes Status: Chronic Plan to address problem: moderate Anemia due to chronic kidney disease Hb: 8.8g/dl continue epogen [id number] q TTS monitor cbc (4) Decubitus ulcer of sacral region, unstageable Current Visit: Yes Status: Acute Plan to address problem: Large decubitus ulcer wound cultures with polymicrobial growth s/p diverting colostomy continue antibiotics with meropenem. Subjective Principal diagnosis: afib Interval history: 63 year old with medical history significant for HTN, dementia, ESRD on hemodialysis TTS via a Right IJ Perm cath . with infected decubitus ulcers . Patient seen today edema improved he is very drowsy , no shortness of breath , no fevers or chills. Objective - Vital Signs Vital signs: Vital Signs - 12hr 02/11/19 02/11/19 05:55 10:00 Temperature 98.2 F Pulse Rate 82 Respiratory 20 22 Rate Blood Pressure 150/76 O2 Sat by Pulse 91 Oximetry - General Appearance General appearance: well-developed, well-nourished EENT: ATNC, PERRL, mucous membranes moist Neck: no JVD Respiratory: Present: Clear to Ascultation Cardiology: regular, S1S2 Gastrointestinal: normal, normoactive bowel sounds Neurologic: alert and oriented x3, CN 3-12 intact Musculoskeletal: cyanosis, joint swelling Psychiatric: mood/affect appropriate - Lab 02/10/19 07:33 02/10/19 07:33 Most recent lab results Calcium 9.6 mg/dL (8.4-10.2) 02/10/19 07:33 Phosphorus 2.90 mg/dL (2.5-4.5) D 01/05/19 04:56 Magnesium 2.10 mg/dL (1.7-2.3) 02/08/19 06:09 - Imaging Chest x-ray: image reviewed (I reviewed CT with osteomyelitis) Medications & Allergies - Medications Allergies/Adverse Reactions: Allergies haloperidol [From Haldol] Adverse Reaction (Verified 03/13/18 12:10) Unknown haloperidol lactate [From Haldol] Adverse Reaction (Verified 03/13/18 12:10) Unknown Home Medications: Home Medications Medication Instructions Recorded Confirmed Last Taken Type risperiDONE [RisperDAL] 1 mg PO QAM 03/13/18 12/27/18 Unknown History Sertraline [Zoloft] 100 mg PO QDAY 08/26/18 12/27/18 Unknown History risperiDONE [RisperDAL] 0.5 mg PO HS 08/26/18 12/27/18 Unknown History Polyethylene Glycol 3350 [Miralax 17 gm PO QDAY #30 packet 11/05/18 12/27/18 Unknown Rx 3350] Aspirin EC 81 mg PO DAILY #30 11/19/18 12/27/18 Unknown Rx Docusate Sodium [Colace CAP] 100 mg PO BID #60 11/19/18 12/27/18 Unknown Rx Folic Acid [Folvite] 1 mg PO DAILY #30 tab 11/19/18 12/27/18 Unknown Rx Famotidine [Pepcid] 20 mg PO DAILY tablet 12/08/18 12/27/18 Unknown Rx Gabapentin [Neurontin] 100 mg PO QHS capsule 12/08/18 12/27/18 Unknown Rx Metoprolol [Lopressor TAB] 50 mg PO BID 30 Days tablet 12/08/18 12/27/18 Unknown Rx Sevelamer Carbonate [Renvela] 800 mg PO TIDWM tablet 12/08/18 12/27/18 Unknown Rx hydrALAZINE [Apresoline TAB] 100 mg PO Q8HR #120 tablet 12/08/18 12/27/18 Unknown Rx Acetaminophen [Acetaminophen TAB] 650 mg PO Q12H PRN 12/15/18 12/27/18 Unknown History Amino Acids/Protein Hydrolys 30 ml PO BID 12/15/18 12/27/18 Unknown History [Pro-Stat Sugar Free Liquid] Glucagon,Human Recombinant 1 mg IJ Q15MIN PRN 12/15/18 12/27/18 Unknown History [Glucagon Emergency Kit] Insulin Aspart [NovoLOG 100 See Protocol SQ QWEEK 12/15/18 12/27/18 Unknown History UNITS/ML VIAL] Epoetin Solitario 10,000 Unit [Procrit] 10,000 unit IV UMA PRN vial 12/18/18 12/27/18 Unknown Rx Lispro Insulin [HumaLOG] 0 unit SUB-Q ACHS units 12/18/18 12/27/18 Unknown Rx risperiDONE [RisperDAL] 0.5 mg PO QHS tablet 12/18/18 12/27/18 Unknown Rx Meropenem [Merrem] 1,000 mg IV Q24HR vial 01/16/19 Unknown Rx Active Medications: Generic Name Dose Route Start Last Admin Trade Name Freq PRN Reason Stop Dose Admin Lipase/Protease/Amylase 1 each 01/28/19 14:53 Pancreaze 10,500 Unit FEEDTUBE PRN PRN For Clogged Feeding Tube Aspirin 81 mg 12/27/18 10:00 02/11/19 10:58 Halfprin Ec PO 81 mg DAILY SANCHEZ Administration Diltiazem HCl 60 mg 01/22/19 10:00 02/11/19 10:58 Cardizem PO 60 mg BID SANCHEZ Administration Diphenhydramine HCl 25 mg 01/26/19 05:54 02/07/19 21:52 Benadryl PO 25 mg Q6H PRN Administration Itching Epoetin Solitario 20,000 unit 01/05/19 11:03 02/10/19 12:01 Procrit IV 20,000 unit UMA PRN Administration hemodialysis Famotidine 20 mg 12/27/18 10:00 02/11/19 10:58 Pepcid PO 20 mg DAILY SANCHEZ Administration Folic Acid 1 mg 12/27/18 10:00 02/11/19 10:59 Folvite PO 1 mg DAILY SANCHEZ Administration Gabapentin 100 mg 12/26/18 22:00 02/10/19 22:41 Neurontin PO 100 mg QHS SANCHEZ Administration Heparin Sodium (Porcine) 5,000 unit 01/23/19 22:00 02/11/19 10:59 Heparin SUB-Q 5,000 unit Q12HR SANCHEZ Administration Hydralazine HCl 100 mg 12/26/18 22:00 02/11/19 05:36 Apresoline PO 100 mg Q8HR SANCHEZ Administration Meropenem 1,000 mg/ Sodium 100 mls @ 100 mls/hr 01/05/19 11:00 02/11/19 11:10 Chloride IV 02/16/19 10:59 100 mls/hr Q24HR SANCHEZ Administration Sodium Chloride 100 mls @ 999 mls/hr 01/19/19 09:29 Nacl 0.9% IV UMA PRN Hypotension Vancomycin HCl 500 mg/ Sodium 110 mls @ 66.667 mls/hr 02/07/19 18:00 02/10/19 18:52 Chloride IV 02/16/19 10:00 66.667 mls/hr [email or web address] SANCHEZ Administration Insulin Human Regular 0 units 02/09/19 12:00 02/11/19 06:44 Humulin R SUB-Q Not Given Q6HR [facility] Protocol Metoprolol Tartrate 100 mg 12/31/18 22:00 02/11/19 10:58 Lopressor PO 100 mg BID SANCHEZ Administration Morphine Sulfate 2 mg 01/21/19 04:08 02/08/19 17:23 Morphine IV 2 mg Q4H PRN Administration Pain, Moderate (4-6) Nitroglycerin 0.4 mg 01/21/19 04:05 01/21/19 04:15 Nitrostat SL 0.4 mg .Q5MIN PRN Administration Chest Pain Oxycodone/Acetaminophen 1 tab 01/05/19 08:30 02/10/19 18:51 Percocet 5/325 PO 1 tab Q6H PRN Administration Pain, Moderate (4-6) Risperidone 0.5 mg 12/26/18 22:00 02/10/19 22:41 Risperdal PO 0.5 mg QHS SANCHEZ Administration Risperidone 1 mg 01/31/19 10:30 02/11/19 11:02 Risperdal PO 1 mg QAM SANCHEZ Administration Sertraline HCl 100 mg 12/27/18 10:00 02/11/19 10:58 Zoloft PO 100 mg QDAY SANCHEZ Administration Simple Syrup 15 ml 01/28/19 14:53 Simple Syrup FEEDTUBE PRN PRN Hypoglycemia Simple Syrup 30 ml 01/28/19 14:53 Simple Syrup FEEDTUBE PRN PRN Hypoglycemia Sodium Bicarbonate 325 mg 01/28/19 14:53 Sodium Bicarbonate FEEDTUBE PRN PRN For Clogged Feeding Tube Sodium Chloride 10 ml 12/26/18 22:00 02/11/19 11:02 Sodium Chloride Flush Syringe 10 Ml IV 10 ml BID SANCHEZ Administration Sodium Hypochlorite 1 applic 01/19/19 10:00 02/11/19 11:00 Dakin's Half Strength TP 1 applicatio QDAY SANCHEZ Administration
--- NOTE | 2019-02-11 16:37 | Progress Note ---
Assessment and Plan Assessment and plan: Patient is a 63-year-old -[place] man from [facility] with a plethora of co-morbidities including blindness, CVA, CHF, PPM/ICD, loop recorder since 2013 that is MRI compatible, IDDM type 2, sepsis left foot ulcer, afib, ESRD with complications on HD TTS, hypertension, AOCD and GERD who presented to [facility] with altered sensorium and decreased responsiveness. Decreased responsive and not eating at all for 2 days. Patient has failure to thrive, altered mentation and weight loss of 20 pounds since 12/08/2018. Now being managed for Severe Sepsis due to Necrotizing Unstagable sacral decubitus ulcer with ostemomylitis, need abx till 02/16/19. need isolation SNF bed on discharge. --Necrotizing Unstagable sacral decubitus ulcer with ostemomylitis On 01/01/2019 open excisional debridement of necrotic and infected sacral wound noted a large amount of necrotic tissue debrided and two abscess cavities at the caudad portion of the wound with a copious amount of purulent drainage which was drained. Wound cultures 01/02/2019 ESBL Kleb, MDR Ecoli and E raffinosus resistant to penicillin: On meropenam and vanc per ID. Consult Vascular surgery for central line placement, planned for diverting colostomy, family has agreed, Cardiology re-evaluated for surgery, input noted, high CV risk. Dr. Manohar Charles, 01/08/19, now ongoing to run till 02/16/19. Further debridement done 01/14/19. he is medically stable awaiting placement. case management working on placement. --Severe Sepsis due to sacral decubitus ulcers and osteomyelitis; antibiotics and wound care --Acute on chronic Anemia of chronic disease: s/p total of 8 units PRBC, follow cbc- no occult GI bleed noted. GI input noted, No retroperitoneal bleed noted. Although 150cc Of blood loss documented during debridement, No further bleeding from sacral wound noted, Dakins moistened kerlex packing started Pt is s/p x1 DDVAP --ESRD on HD: Nephology , hemodialysis per schedule --Atypical Chest pain, now resolved, medical management --Nonspecific Elevated troponin: Cardiology evaluated conservative management --Metabolic encephalopathy due to underlying disease process, Supportive care --Acute systolic exacerbation of CHF EF 35-40% : treat via Ultrafiltration during HD --Afib with RVR: rate control only and optimize meds per Cardiology --Insulin dependent diabetes mellitus, A1c is 4.2: insulin was dc, Accu-Chek sliding scale coverage --Severe malnutrition /hypoalbuminemia with FTT: 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 Per discussion with Surgery and as documented by them Very poor prognosis for wound healing;[facility].Family not willing Patient is clinically stable for discharge to SNF However [contact isolation beds not available at [facility]] History Interval history: Patient is seen and examined Clinically no change. Patient legally sylvain,has no new complaints Hospitalist Physical - Constitutional Vitals: Temp Pulse Resp BP Pulse Ox 97.6 F 80 22 122/68 100 02/11/19 12:08 02/11/19 12:08 02/11/19 12:08 02/11/19 12:08 02/11/19 12:08 General appearance: Present: no acute distress, well-nourished - EENT Eyes: Present: PERRL, EOM intact - Neck Neck: Present: supple, normal ROM - Respiratory Respiratory effort: normal Respiratory: bilateral: diminished, negative: rales, rhonchi, wheezing - Cardiovascular Rhythm: regular Heart Sounds: Present: S1 & S2 - Extremities Extremities: no ischemia, abnormal (Sacral decubitus Stage IV) - Abdominal General gastrointestinal: soft, non-tender, non-distended, normal bowel sounds - Integumentary Integumentary: Present: clear, warm - Psychiatric Psychiatric: appropriate mood/affect, other (blind) - Neurologic Neurologic: other (residual weakness) Results - Labs CBC & Chem 7: 02/10/19 07:33 02/10/19 07:33 Labs: Laboratory Last Values WBC 8.5 K/mm3 (4.5-11.0) 02/10/19 07:33 RBC 3.14 M/mm3 (3.65-5.03) L 02/10/19 07:33 Hgb 8.8 gm/dl (11.8-15.2) L 02/10/19 07:33 Hct 27.8 % (35.5-45.6) L 02/10/19 07:33 MCV 89 fl (84-94) 02/10/19 07:33 MCH 28 pg (28-32) 02/10/19 07:33 MCHC 32 % (32-34) 02/10/19 07:33 RDW 20.0 % (13.2-15.2) H 02/10/19 07:33 Plt Count 300 K/mm3 (140-440) 02/10/19 07:33 Lymph % (Auto) 8.3 % (13.4-35.0) L 02/10/19 07:33 Greenlee % (Auto) 9.7 % (0.0-7.3) H 02/10/19 07:33 Eos % (Auto) 6.4 % (0.0-4.3) H 02/10/19 07:33 Baso % (Auto) 0.3 % (0.0-1.8) 02/10/19 07:33 Lymph # 0.7 K/mm3 (1.2-5.4) L 02/10/19 07:33 Greenlee # 0.8 K/mm3 (0.0-0.8) 02/10/19 07:33 Eos # 0.5 K/mm3 (0.0-0.4) H 02/10/19 07:33 Baso # 0.0 K/mm3 (0.0-0.1) 02/10/19 07:33 Add Manual Diff Complete 01/03/19 17:16 Total Counted 100 01/03/19 17:16 Seg Neutrophils % 75.3 % (40.0-70.0) H 02/10/19 07:33 Seg Neuts % (Manual) 96.0 % (40.0-70.0) H 01/03/19 17:16 0 % 01/03/19 17:16 2.0 % (13.4-35.0) L 01/03/19 17:16 Reactive Lymphs % (Man) 0 % 01/03/19 17:16 2.0 % (0.0-7.3) 01/03/19 17:16 0 % (0.0-4.3) 01/03/19 17:16 0 % (0.0-1.8) 01/03/19 17:16 0 % 01/03/19 17:16 0 % 01/03/19 17:16 0 % 01/03/19 17:16 0 % 01/03/19 17:16 Nucleated RBC % Not Reportable 01/03/19 17:16 Seg Neutrophils # 6.4 K/mm3 (1.8-7.7) 02/10/19 07:33 Seg Neutrophils # Man 10.8 K/mm3 (1.8-7.7) H 01/03/19 17:16 Band Neutrophils # 0.0 K/mm3 01/03/19 17:16 0.2 K/mm3 (1.2-5.4) L 01/03/19 17:16 Abs React Lymphs (Man) 0.0 K/mm3 01/03/19 17:16 0.2 K/mm3 (0.0-0.8) 01/03/19 17:16 0.0 K/mm3 (0.0-0.4) 01/03/19 17:16 0.0 K/mm3 (0.0-0.1) 01/03/19 17:16 0.0 K/mm3 01/03/19 17:16 0.0 K/mm3 01/03/19 17:16 0.0 K/mm3 01/03/19 17:16 Blast Cells # 0.0 K/mm3 01/03/19 17:16 WBC Morphology Not Reportable 01/03/19 17:16 Hypersegmented Neuts Not Reportable 01/03/19 17:16 Hyposegmented Neuts Not Reportable 01/03/19 17:16 Hypogranular Neuts Not Reportable 01/03/19 17:16 Not Reportable 01/03/19 17:16 Not Reportable 01/03/19 17:16 Not Reportable 01/03/19 17:16 Not Reportable 01/03/19 17:16 Not Reportable 01/03/19 17:16 Not Reportable 01/03/19 17:16 Consistent w auto 01/03/19 17:16 Not Reportable 01/03/19 17:16 Plt Clumps, EDTA Not Reportable 01/03/19 17:16 Not Reportable 01/03/19 17:16 Not Reportable 01/03/19 17:16 Not Reportable 01/03/19 17:16 Plt Morphology Comment Not Reportable 01/03/19 17:16 RBC Morphology Not Reportable 01/03/19 17:16 Dimorphic RBCs Not Reportable 01/03/19 17:16 Not Reportable 01/03/19 17:16 1+ 01/03/19 17:16 Few 01/03/19 17:16 1+ 01/03/19 17:16 Not Reportable 01/03/19 17:16 Not Reportable 01/03/19 17:16 Not Reportable 01/03/19 17:16 Not Reportable 01/03/19 17:16 Not Reportable 01/03/19 17:16 Few 01/03/19 17:16 Not Reportable 01/03/19 17:16 Few 01/03/19 17:16 Not Reportable 01/03/19 17:16 Not Reportable 01/03/19 17:16 Not Reportable 01/03/19 17:16 Not Reportable 01/03/19 17:16 Not Reportable 01/03/19 17:16 Not Reportable 01/03/19 17:16 Not Reportable 01/03/19 17:16 Acanthocytes (Spur) Not Reportable 01/03/19 17:16 Rouleaux Not Reportable 01/03/19 17:16 Not Reportable 01/03/19 17:16 Not Reportable 01/03/19 17:16 Not Reportable 01/03/19 17:16 Not Reportable 01/03/19 17:16 Hem Pathologist Commnt No 01/03/19 17:16 PT 18.0 Sec. (12.2-14.9) H 01/02/19 05:39 INR 1.39 (0.87-1.13) H 01/02/19 05:39 Sodium 137 mmol/L (137-145) 02/10/19 07:33 Potassium 4.3 mmol/L (3.6-5.0) 02/10/19 07:33 Chloride 99.4 mmol/L (98-107) 02/10/19 07:33 Carbon Dioxide 30 mmol/L (22-30) 02/10/19 07:33 12 mmol/L 02/10/19 07:33 BUN 33 mg/dL (9-20) H 02/10/19 07:33 2.9 mg/dL (0.8-1.5) H D 02/10/19 07:33 Estimated GFR 27 ml/min 02/10/19 07:33 11 % 02/10/19 07:33 Glucose 91 mg/dL (75-100) 02/10/19 07:33 POC Glucose 114 (70-105) H 02/11/19 12:13 < 4.2 % (4-6) 12/26/18 17:12 Lactic Acid 1.10 mmol/L (0.7-2.0) 12/27/18 07:04 Calcium 9.6 mg/dL (8.4-10.2) 02/10/19 07:33 Phosphorus 2.90 mg/dL (2.5-4.5) D 01/05/19 04:56 Magnesium 2.10 mg/dL (1.7-2.3) 02/08/19 06:09 0.20 mg/dL (0.1-1.2) 02/10/19 07:33 AST 14 units/L (5-40) 02/10/19 07:33 ALT < 5 units/L (7-56) L 02/10/19 07:33 147 units/L (35-129) H 02/10/19 07:33 29 units/L (55-170) L 12/26/18 17:12 0.201 ng/mL (0.00-0.029) H* 01/21/19 08:05 6.0 g/dL (6.3-8.2) L 02/10/19 07:33 2.1 g/dL (3.9-5) L 02/10/19 07:33 0.5 % 02/10/19 07:33 Triglycerides 46 mg/dL (2-149) 01/21/19 04:23 Cholesterol 64 mg/dL (50-199) 01/21/19 04:23 34 mg/dL (50-130) L 01/21/19 04:23 27 mg/dL (40-59) L 01/21/19 04:23 2.37 % 01/21/19 04:23 PTH Intact 178.6 pg/mL (15-65) H 01/01/19 17:32 Random Vancomycin 24.9 ug/mL (0-40.0) 02/05/19 09:10 Hepatitis A IgM Ab Non-reactive (NonReactive) 01/22/19 10:34 Hep Bs Antigen Non-reactive (Negative) 01/22/19 10:34 Hep B Core IgM Ab Non-reactive (NonReactive) 01/22/19 10:34 Non-reactive (NonReactive) 01/22/19 10:34 Blood Type O POSITIVE 01/16/19 15:06 Antibody Screen Negative 01/16/19 15:06 Crossmatch See Detail 01/16/19 15:06 Active Medications - Current Medications Current Medications: Generic Name Dose Route Start Last Admin Trade Name Freq PRN Reason Stop Dose Admin Lipase/Protease/Amylase 1 each 01/28/19 14:[address] 10,500 Unit FEEDTUBE PRN PRN For Clogged Feeding Tube Aspirin 81 mg 12/27/18 10:00 02/11/19 10:58 Halfprin Ec PO 81 mg DAILY SANCHEZ Administration Diltiazem HCl 60 mg 01/22/19 10:00 02/11/19 10:58 Cardizem PO 60 mg BID SANCHEZ Administration Diphenhydramine HCl 25 mg 01/26/19 05:54 02/07/19 21:52 Benadryl PO 25 mg Q6H PRN Administration Itching Epoetin Solitario 20,000 unit 01/05/19 11:03 02/10/19 12:01 Procrit IV 20,000 unit UMA PRN Administration hemodialysis Famotidine 20 mg 12/27/18 10:00 02/11/19 10:58 Pepcid PO 20 mg DAILY SANCHEZ Administration Folic Acid 1 mg 12/27/18 10:00 02/11/19 10:59 Folvite PO 1 mg DAILY SANCHEZ Administration Gabapentin 100 mg 12/26/18 22:00 02/10/19 22:41 Neurontin PO 100 mg QHS SANCHEZ Administration Heparin Sodium (Porcine) 5,000 unit 01/23/19 22:00 02/11/19 10:59 Heparin SUB-Q 5,000 unit Q12HR SANCHEZ Administration Hydralazine HCl 100 mg 12/26/18 22:00 02/11/19 14:47 Apresoline PO 100 mg Q8HR SANCHEZ Administration Meropenem 1,000 mg/ Sodium 100 mls @ 100 mls/hr 01/05/19 11:00 02/11/19 11:10 Chloride IV 02/16/19 10:59 100 mls/hr Q24HR SANCHEZ Administration Sodium Chloride 100 mls @ 999 mls/hr 01/19/19 09:29 Nacl 0.9% IV UMA PRN Hypotension Vancomycin HCl 500 mg/ Sodium 110 mls @ 66.667 mls/hr 02/07/19 18:00 02/10/19 18:52 Chloride IV 02/16/19 10:00 66.667 mls/hr TuThSa@1800 SANCHEZ Administration Insulin Human Regular 0 units 02/09/19 12:00 02/11/19 14:48 Humulin R SUB-Q Not Given Q6HR [facility] Protocol Metoprolol Tartrate 100 mg 12/31/18 22:00 02/11/19 10:58 Lopressor PO 100 mg BID SANCHEZ Administration Morphine Sulfate 2 mg 01/21/19 04:08 02/08/19 17:23 Morphine IV 2 mg Q4H PRN Administration Pain, Moderate (4-6) Nitroglycerin 0.4 mg 01/21/19 04:05 01/21/19 04:15 Nitrostat SL 0.4 mg .Q5MIN PRN Administration Chest Pain Oxycodone/Acetaminophen 1 tab 01/05/19 08:30 02/10/19 18:51 Percocet 5/325 PO 1 tab Q6H PRN Administration Pain, Moderate (4-6) Risperidone 0.5 mg 12/26/18 22:00 02/10/19 22:41 Risperdal PO 0.5 mg QHS SANCHEZ Administration Risperidone 1 mg 01/31/19 10:30 02/11/19 11:02 Risperdal PO 1 mg QAM SANCHEZ Administration Sertraline HCl 100 mg 12/27/18 10:00 02/11/19 10:58 Zoloft PO 100 mg QDAY SANCHEZ Administration Simple Syrup 15 ml 01/28/19 14:53 Simple Syrup FEEDTUBE PRN PRN Hypoglycemia Simple Syrup 30 ml 01/28/19 14:53 Simple Syrup FEEDTUBE PRN PRN Hypoglycemia Sodium Bicarbonate 325 mg 01/28/19 14:53 Sodium Bicarbonate FEEDTUBE PRN PRN For Clogged Feeding Tube Sodium Chloride 10 ml 12/26/18 22:00 02/11/19 11:02 Sodium Chloride Flush Syringe 10 Ml IV 10 ml BID SANCHEZ Administration Sodium Hypochlorite 1 applic 01/19/19 10:00 02/11/19 11:00 Dakin's Half Strength TP 1 applicatio QDAY SANCHEZ Administration Nutrition/Malnutrition Assess - Dietary Evaluation Nutrition/Malnutrition Findings: Nutrition Notes Start: 12/27/18 17:15 Freq: Status: Active Protocol: Document 02/06/19 21:52 RM (Rec: 02/06/19 21:54 RM [email or web address]) Nutrition Notes Initial or Follow up Reassessment Current Diagnosis CKD (stage V CKD),Diabetes, Sepsis,Hypertension Other Pertinent Diagnosis Necrotizing sacral decubitus ulcer with osteomyelitis Current Diet TF - Nepro at 45ml/hr Labs/Tests Reviewed Pertinent Medications Reviewed Height 5 ft 7 in Weight 86.6 kg Hiko Body Weight (kg) 67.27 BMI 29.9 Subjective/Other Information Observed Nepro infusing at goal rate. Percent of energy/protein needs met: 100%/81% Burn Absent Trauma Absent #2 Nutrition Diagnosis Increased nutrient needs ( specify in comment below) Diagnosis Progress(for reassessment Continues documentation) #1 Nutrition Diagnosis Inadequate oral intake Diagnosis Progress(for reassessment Continues documentation) Is patient on ventilator? No Is Patient Ambulatory and/or Out of Bed No REE-([facility] Jeor-confined to bed) [phone] Calculation Used for Recommendations [facility] Additional Notes Pro needs 1.2-1.4g/k- 129g/day Fluid needs 1-1.5L/day Nutrition Intervention Nutrition Support: Continue Nepro at 45 ml/hr. Water flush of 150 mls q 4 hrs . Kcal 1,944 Protein (gm) 87 Fluid (mL) 785 Goal #1 TF tolerance Goal #2 TF to continue to meet at least 75% of calorie and protein needs Anticipated Discharge Needs: Nepro Follow-Up By: 02/13/19 Additional Comments Follow for TF tolerance
[2019-02-11] MEDS: NEURONTIN PO SCH (22:28)
[2019-02-12] MEDS: HumuLIN R SUB-Q SCH ×4 (00:32→19:46)
[2019-02-12] MEDS: APRESOLINE PO SCH ×4 (01:24→22:02)
[2019-02-12] MEDS: PERCOCET 5/325 PO PRN ×2 (07:15→15:56)
--- NOTE | 2019-02-12 07:44 | Progress Note ---
Assessment and Plan Assessment and plan: Patient is a 63-year-old -[place]ian man from [facility] with a plethora of co-morbidities including blindness, CVA, CHF, PPM/ICD, loop recorder since 2013 that is MRI compatible, IDDM type 2, sepsis left foot ulcer, afib, ESRD with complications on HD TTS, hypertension, AOCD and GERD who presented to [facility] with altered sensorium and decreased responsiveness. Decreased responsive and not eating at all for 2 days. Patient has failure to thrive, altered mentation and weight loss of 20 pounds since 12/08/2018. Now being managed for Severe Sepsis due to Necrotizing Unstagable sacral decubitus ulcer with ostemomylitis, need abx till 02/16/19. need isolation SNF bed on discharge. --Necrotizing Unstagable sacral decubitus ulcer with ostemomylitis On 01/01/2019 open excisional debridement of necrotic and infected sacral wound noted a large amount of necrotic tissue debrided and two abscess cavities at the caudad portion of the wound with a copious amount of purulent drainage which was drained. Wound cultures 01/02/2019 ESBL Kleb, MDR Ecoli and E raffinosus resistant to penicillin: On meropenam and vanc per ID. Consult Vascular surgery for central line placement, planned for diverting colostomy, family has agreed, Cardiology re-evaluated for surgery, input noted, high CV risk. Dr. Manohar Charles, 01/08/19, now ongoing to run till 02/16/19. Further debridement done 01/14/19. he is medically stable awaiting placement. case management working on placement. --Severe Sepsis due to sacral decubitus ulcers and osteomyelitis; antibiotics and wound care --Acute on chronic Anemia of chronic disease: s/p total of 8 units PRBC, follow cbc- no occult GI bleed noted. GI input noted, No retroperitoneal bleed noted. Although 150cc Of blood loss documented during debridement, No further bleeding from sacral wound noted, Dakins moistened kerlex packing started Pt is s/p x1 DDVAP --ESRD on HD: Nephology , hemodialysis per schedule. DIALYSIS DONE TODAY --Atypical Chest pain, now resolved, medical management --Nonspecific Elevated troponin: Cardiology evaluated conservative management --Metabolic encephalopathy due to underlying disease process, Supportive care --Acute systolic exacerbation of CHF EF 35-40% : treat via Ultrafiltration during HD --Afib with RVR: rate control only and optimize meds per Cardiology --Insulin dependent diabetes mellitus, A1c is 4.2: insulin was dc, Accu-Chek sliding scale coverage --Severe malnutrition /hypoalbuminemia with FTT: 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, loans consultant following PEG placed on 01/02/19 --Hypertension: Well-controlled on current antihypertensives --h/o Peripheral neuropathy: Continue gabapentin --DVT prophylaxis On heparin and GI prophylaxis Very Poor prognosis discussed with family member Mr Jennifer Mims. Per discussion with Surgery and as documented by them Very poor prognosis for wound healing;[facility].Family not willing Patient is clinically stable for discharge to SNF However [contact isolation beds not available at SNF] History Interval history: Patient is seen and examined, no new complaints. Tolerated dialysis today. patient is legally Hospitalist Physical - Physical exam Narrative exam: General appearance: Present: no acute distress, well-nourished - EENT Eyes: Present: PERRL, EOM intact - Neck Neck: Present: supple, normal ROM - Respiratory Respiratory effort: normal Respiratory: bilateral: diminished, negative: rales, rhonchi, wheezing - Cardiovascular Rhythm: regular Heart Sounds: Present: S1 & S2 - Extremities Extremities: no ischemia, abnormal (Sacral decubitus Stage IV) - Abdominal General gastrointestinal: soft, non-tender, non-distended, normal bowel sounds - Integumentary Integumentary: Present: clear, warm - Psychiatric Psychiatric: appropriate mood/affect, other (blind) - Neurologic Neurologic: other (residual weakness) - Constitutional Vitals: Temp Pulse Resp BP Pulse Ox 98.1 F 78 18 140/73 99 02/12/19 05:02 02/12/19 07:11 02/12/19 07:15 02/12/19 07:11 02/12/19 07:11 General appearance: Present: no acute distress, well-nourished Results - Labs CBC & Chem 7: 02/12/19 07:30 02/12/19 08:45 Labs: Laboratory Last Values WBC 8.5 K/mm3 (4.5-11.0) 02/10/19 07:33 RBC 3.14 M/mm3 (3.65-5.03) L 02/10/19 07:33 Hgb 8.8 gm/dl (11.8-15.2) L 02/10/19 07:33 Hct 27.8 % (35.5-45.6) L 02/10/19 07:33 MCV 89 fl (84-94) 02/10/19 07:33 MCH 28 pg (28-32) 02/10/19 07:33 MCHC 32 % (32-34) 02/10/19 07:33 RDW 20.0 % (13.2-15.2) H 02/10/19 07:33 Plt Count 300 K/mm3 (140-440) 02/10/19 07:33 Lymph % (Auto) 8.3 % (13.4-35.0) L 02/10/19 07:33 [place] % (Auto) 9.7 % (0.0-7.3) H 02/10/19 07:33 Eos % (Auto) 6.4 % (0.0-4.3) H 02/10/19 07:33 Baso % (Auto) 0.3 % (0.0-1.8) 02/10/19 07:33 Lymph # 0.7 K/mm3 (1.2-5.4) L 02/10/19 07:33 [place] # 0.8 K/mm3 (0.0-0.8) 02/10/19 07:33 Eos # 0.5 K/mm3 (0.0-0.4) H 02/10/19 07:33 Baso # 0.0 K/mm3 (0.0-0.1) 02/10/19 07:33 Add Manual Diff Complete 01/03/19 17:16 Total Counted 100 01/03/19 17:16 Seg Neutrophils % 75.3 % (40.0-70.0) H 02/10/19 07:33 Seg Neuts % (Manual) 96.0 % (40.0-70.0) H 01/03/19 17:16 0 % 01/03/19 17:16 2.0 % (13.4-35.0) L 01/03/19 17:16 Reactive Lymphs % (Man) 0 % 01/03/19 17:16 2.0 % (0.0-7.3) 01/03/19 17:16 0 % (0.0-4.3) 01/03/19 17:16 0 % (0.0-1.8) 01/03/19 17:16 0 % 01/03/19 17:16 0 % 01/03/19 17:16 0 % 01/03/19 17:16 0 % 01/03/19 17:16 Nucleated RBC % Not Reportable 01/03/19 17:16 Seg Neutrophils # 6.4 K/mm3 (1.8-7.7) 02/10/19 07:33 Seg Neutrophils # Man 10.8 K/mm3 (1.8-7.7) H 01/03/19 17:16 Band Neutrophils # 0.0 K/mm3 01/03/19 17:16 0.2 K/mm3 (1.2-5.4) L 01/03/19 17:16 Abs React Lymphs (Man) 0.0 K/mm3 01/03/19 17:16 0.2 K/mm3 (0.0-0.8) 01/03/19 17:16 0.0 K/mm3 (0.0-0.4) 01/03/19 17:16 0.0 K/mm3 (0.0-0.1) 01/03/19 17:16 0.0 K/mm3 01/03/19 17:16 0.0 K/mm3 01/03/19 17:16 0.0 K/mm3 01/03/19 17:16 Blast Cells # 0.0 K/mm3 01/03/19 17:16 WBC Morphology Not Reportable 01/03/19 17:16 Hypersegmented Neuts Not Reportable 01/03/19 17:16 Hyposegmented Neuts Not Reportable 01/03/19 17:16 Hypogranular Neuts Not Reportable 01/03/19 17:16 Not Reportable 01/03/19 17:16 Not Reportable 01/03/19 17:16 Not Reportable 01/03/19 17:16 Not Reportable 01/03/19 17:16 Not Reportable 01/03/19 17:16 Not Reportable 01/03/19 17:16 Consistent w auto 01/03/19 17:16 Not Reportable 01/03/19 17:16 Plt Clumps, EDTA Not Reportable 01/03/19 17:16 Not Reportable 01/03/19 17:16 Not Reportable 01/03/19 17:16 Not Reportable 01/03/19 17:16 Plt Morphology Comment Not Reportable 01/03/19 17:16 RBC Morphology Not Reportable 01/03/19 17:16 Dimorphic RBCs Not Reportable 01/03/19 17:16 Not Reportable 01/03/19 17:16 1+ 01/03/19 17:16 Few 01/03/19 17:16 1+ 01/03/19 17:16 Not Reportable 01/03/19 17:16 Not Reportable 01/03/19 17:16 Not Reportable 01/03/19 17:16 Not Reportable 01/03/19 17:16 Not Reportable 01/03/19 17:16 Few 01/03/19 17:16 Not Reportable 01/03/19 17:16 Few 01/03/19 17:16 Not Reportable 01/03/19 17:16 Not Reportable 01/03/19 17:16 Not Reportable 01/03/19 17:16 Not Reportable 01/03/19 17:16 Not Reportable 01/03/19 17:16 Not Reportable 01/03/19 17:16 Not Reportable 01/03/19 17:16 Acanthocytes (Spur) Not Reportable 01/03/19 17:16 Rouleaux Not Reportable 01/03/19 17:16 Not Reportable 01/03/19 17:16 Not Reportable 01/03/19 17:16 Not Reportable 01/03/19 17:16 Not Reportable 01/03/19 17:16 Hem Pathologist Commnt No 01/03/19 17:16 PT 18.0 Sec. (12.2-14.9) H 01/02/19 05:39 INR 1.39 (0.87-1.13) H 01/02/19 05:39 Sodium 137 mmol/L (137-145) 02/10/19 07:33 Potassium 4.3 mmol/L (3.6-5.0) 02/10/19 07:33 Chloride 99.4 mmol/L (98-107) 02/10/19 07:33 Carbon Dioxide 30 mmol/L (22-30) 02/10/19 07:33 12 mmol/L 02/10/19 07:33 BUN 33 mg/dL (9-20) H 02/10/19 07:33 2.9 mg/dL (0.8-1.5) H D 02/10/19 07:33 Estimated GFR 27 ml/min 02/10/19 07:33 11 % 02/10/19 07:33 Glucose 91 mg/dL (75-100) 02/10/19 07:33 POC Glucose 123 (70-105) H 02/12/19 05:23 < 4.2 % (4-6) 12/26/18 17:12 Lactic Acid 1.10 mmol/L (0.7-2.0) 12/27/18 07:04 Calcium 9.6 mg/dL (8.4-10.2) 02/10/19 07:33 Phosphorus 2.90 mg/dL (2.5-4.5) D 01/05/19 04:56 Magnesium 2.10 mg/dL (1.7-2.3) 02/08/19 06:09 0.20 mg/dL (0.1-1.2) 02/10/19 07:33 AST 14 units/L (5-40) 02/10/19 07:33 ALT < 5 units/L (7-56) L 02/10/19 07:33 147 units/L (35-129) H 02/10/19 07:33 29 units/L (55-170) L 12/26/18 17:12 0.201 ng/mL (0.00-0.029) H* 01/21/19 08:05 6.0 g/dL (6.3-8.2) L 02/10/19 07:33 2.1 g/dL (3.9-5) L 02/10/19 07:33 0.5 % 02/10/19 07:33 Triglycerides 46 mg/dL (2-149) 01/21/19 04:23 Cholesterol 64 mg/dL (50-199) 01/21/19 04:23 34 mg/dL (50-130) L 01/21/19 04:23 27 mg/dL (40-59) L 01/21/19 04:23 2.37 % 01/21/19 04:23 PTH Intact 178.6 pg/mL (15-65) H 01/01/19 17:32 Random Vancomycin 24.9 ug/mL (0-40.0) 02/05/19 09:10 Hepatitis A IgM Ab Non-reactive (NonReactive) 01/22/19 10:34 Hep Bs Antigen Non-reactive (Negative) 01/22/19 10:34 Hep B Core IgM Ab Non-reactive (NonReactive) 01/22/19 10:34 Non-reactive (NonReactive) 01/22/19 10:34 Blood Type O POSITIVE 01/16/19 15:06 Antibody Screen Negative 01/16/19 15:06 Crossmatch See Detail 01/16/19 15:06 Active Medications - Current Medications Current Medications: Generic Name Dose Route Start Last Admin Trade Name Freq PRN Reason Stop Dose Admin Lipase/Protease/Amylase 1 each 01/28/19 14:[address] 10,500 Unit FEEDTUBE PRN PRN For Clogged Feeding Tube Aspirin 81 mg 12/27/18 10:00 02/11/19 10:58 Halfprin Ec PO 81 mg DAILY SANCHEZ Administration Diltiazem HCl 60 mg 01/22/19 10:00 02/11/19 22:28 Cardizem PO 60 mg BID SANCHEZ Administration Diphenhydramine HCl 25 mg 01/26/19 05:54 02/07/19 21:52 Benadryl PO 25 mg Q6H PRN Administration Itching Epoetin Solitario 20,000 unit 01/05/19 11:03 02/10/19 12:01 Procrit IV 20,000 unit UMA PRN Administration hemodialysis Famotidine 20 mg 12/27/18 10:00 02/11/19 10:58 Pepcid PO 20 mg DAILY SANCHEZ Administration Folic Acid 1 mg 12/27/18 10:00 02/11/19 10:59 Folvite PO 1 mg DAILY SANCHEZ Administration Gabapentin 100 mg 12/26/18 22:00 02/11/19 22:28 Neurontin PO 100 mg QHS SANCHEZ Administration Heparin Sodium (Porcine) 5,000 unit 01/23/19 22:00 02/11/19 22:28 Heparin SUB-Q 5,000 unit Q12HR SANCHEZ Administration Hydralazine HCl 100 mg 12/26/18 22:00 02/12/19 07:13 Apresoline PO 100 mg Q8HR SANCHEZ Administration Meropenem 1,000 mg/ Sodium 100 mls @ 100 mls/hr 01/05/19 11:00 02/11/19 11:10 Chloride IV 02/16/19 10:59 100 mls/hr Q24HR SANCHEZ Administration Sodium Chloride 100 mls @ 999 mls/hr 01/19/19 09:29 Nacl 0.9% IV UMA PRN Hypotension Vancomycin HCl 500 mg/ Sodium 110 mls @ 66.667 mls/hr 02/07/19 18:00 02/10/19 18:52 Chloride IV 02/16/19 10:00 66.667 mls/hr [email or web address] SANCHEZ Administration Insulin Human Regular 0 units 02/09/19 12:00 02/12/19 07:11 Humulin R SUB-Q Not Given Q6HR [facility] Protocol Metoprolol Tartrate 100 mg 12/31/18 22:00 02/11/19 22:28 Lopressor PO 100 mg BID SANCHEZ Administration Morphine Sulfate 2 mg 01/21/19 04:08 02/08/19 17:23 Morphine IV 2 mg Q4H PRN Administration Pain, Moderate (4-6) Nitroglycerin 0.4 mg 01/21/19 04:05 01/21/19 04:15 Nitrostat SL 0.4 mg .Q5MIN PRN Administration Chest Pain Oxycodone/Acetaminophen 1 tab 01/05/19 08:30 02/12/19 07:15 Percocet 5/325 PO 1 tab Q6H PRN Administration Pain, Moderate (4-6) Risperidone 0.5 mg 12/26/18 22:00 02/11/19 22:28 Risperdal PO 0.5 mg QHS SANCHEZ Administration Risperidone 1 mg 01/31/19 10:30 02/11/19 11:02 Risperdal PO 1 mg QAM SANCHEZ Administration Sertraline HCl 100 mg 12/27/18 10:00 02/11/19 10:58 Zoloft PO 100 mg QDAY SANCHEZ Administration Simple Syrup 15 ml 01/28/19 14:53 Simple Syrup FEEDTUBE PRN PRN Hypoglycemia Simple Syrup 30 ml 01/28/19 14:53 Simple Syrup FEEDTUBE PRN PRN Hypoglycemia Sodium Bicarbonate 325 mg 01/28/19 14:53 Sodium Bicarbonate FEEDTUBE PRN PRN For Clogged Feeding Tube Sodium Chloride 10 ml 12/26/18 22:00 02/11/19 22:28 Sodium Chloride Flush Syringe 10 Ml IV 10 ml BID SANCHEZ Administration Sodium Hypochlorite 1 applic 01/19/19 10:00 02/11/19 11:00 Dakin's Half Strength TP 1 applicatio QDAY SANCHEZ Administration Nutrition/Malnutrition Assess - Dietary Evaluation Nutrition/Malnutrition Findings: Nutrition Notes Start: 12/27/18 17:15 Freq: Status: Active Protocol: Document 02/06/19 21:52 RM (Rec: 02/06/19 21:54 RM [id number]) Nutrition Notes Initial or Follow up Reassessment Current Diagnosis CKD (stage V CKD),Diabetes, Sepsis,Hypertension Other Pertinent Diagnosis Necrotizing sacral decubitus ulcer with osteomyelitis Current Diet TF - Nepro at 45ml/hr Labs/Tests Reviewed Pertinent Medications Reviewed Height 5 ft 7 in Weight 86.6 kg [place] Body Weight (kg) 67.27 BMI 29.9 Subjective/Other Information Observed Nepro infusing at goal rate. Percent of energy/protein needs met: 100%/81% Burn Absent Trauma Absent #2 Nutrition Diagnosis Increased nutrient needs ( specify in comment below) Diagnosis Progress(for reassessment Continues documentation) #1 Nutrition Diagnosis Inadequate oral intake Diagnosis Progress(for reassessment Continues documentation) Is patient on ventilator? No Is Patient Ambulatory and/or Out of Bed No REE-([facility]-confined to bed) 4812.376 Calculation Used for Recommendations [facility] Additional Notes Pro needs 1.2-1.4g/k- 129g/day Fluid needs 1-1.5L/day Nutrition Intervention Nutrition Support: Continue Nepro at 45 ml/hr. Water flush of 150 mls q 4 hrs . Kcal 1,944 Protein (gm) 87 Fluid (mL) 785 Goal #1 TF tolerance Goal #2 TF to continue to meet at least 75% of calorie and protein needs Anticipated Discharge Needs: Nepro Follow-Up By: 02/13/19 Additional Comments Follow for TF tolerance
[2019-02-12 07:57] LABS: Basophils # (Auto) 0.1 K/mm3 (0.0-0.1); Basophils % (Auto) 1.1 % (0.0-1.8); Eosinophils # (Auto) 0.5 K/mm3 (0.0-0.4); Eosinophils % (Auto) 7.5 % (0.0-4.3); Hematocrit 29.1 % (35.5-45.6); Hemoglobin 9.1 gm/dl (11.8-15.2); Lymphocytes # (Auto) 0.7 K/mm3 (1.2-5.4); Lymphocytes % (Auto) 9.9 % (13.4-35.0); Mean Corpuscular HGB Conc 31 % (32-34); Mean Corpuscular Volume 90 fl (84-94); Monocytes # (Auto) 0.7 K/mm3 (0.0-0.8); Platelet Count 293 K/mm3 (140-440); Red Blood Count 3.25 M/mm3 (3.65-5.03)
[2019-02-12 08:26] LABS: BUN/Creatinine Ratio 10; Blood Urea Nitrogen 30 mg/dL (9-20); Calcium 9.8 mg/dL (8.4-10.2); Hemolysis Index 3
[2019-02-12 08:27] LABS: Alanine Aminotransferase < 5 units/L (7-56)
[2019-02-12 09:22] LABS: Calcium 9.8 mg/dL (8.4-10.2)
--- NOTE | 2019-02-12 09:42 | Progress Note ---
Assessment and Plan - Patient Problems (1) ESRD (end stage renal disease) Current Visit: Yes Status: Acute Plan to address problem: END-STAGE RENAL DISEASE. DIALYSIS ACCESS RIGHT tunnel dialysis catheter continue hemodialysis Saturday, , Saturday (2) CHF (congestive heart failure) Current Visit: Yes Status: Acute Qualifiers: Heart failure type: unspecified Heart failure chronicity: acute on chronic Qualified Code(s): I50.9 - Heart failure, unspecified Plan to address problem: Chronic Congestive heart failure: continue current medications. (3) Anemia in ESRD (end-stage renal disease) Current Visit: Yes Status: Chronic Plan to address problem: moderate Anemia due to chronic kidney disease Hb: 9.1g/dl continue epogen [id number] q TTS monitor cbc (4) Decubitus ulcer of sacral region, unstageable Current Visit: Yes Status: Acute Plan to address problem: Large decubitus ulcer wound cultures with polymicrobial growth s/p diverting colostomy continue antibiotics with meropenem. Subjective Principal diagnosis: afib Interval history: 63 year old with medical history significant for HTN, dementia, ESRD on hemodialysis TTS via a Right IJ Perm cath . with infected decubitus ulcers . Patient seen today Still has upper extremity edema. Awake, denies any shortness of breath , no fevers or chills. Objective - Vital Signs Vital signs: Vital Signs - 12hr 02/11/19 02/11/19 02/12/19 22:26 22:46 00:00 Temperature 98.0 F 97.9 F Pulse Rate 78 77 Respiratory 18 18 Rate Blood Pressure 131/63 Blood Pressure 116/72 [Right] O2 Sat by Pulse 100 Oximetry 02/12/19 02/12/19 02/12/19 05:02 07:11 07:15 Temperature 98.1 F Pulse Rate 79 78 Respiratory 18 18 18 Rate Blood Pressure 125/70 140/73 Blood Pressure [Right] O2 Sat by Pulse 100 99 Oximetry 02/12/19 08:15 Temperature Pulse Rate Respiratory 18 Rate Blood Pressure Blood Pressure [Right] O2 Sat by Pulse Oximetry - General Appearance General appearance: well-developed, well-nourished EENT: ATNC, PERRL, mucous membranes moist Neck: no JVD Respiratory: Present: Clear to Ascultation Cardiology: regular, S1S2 Gastrointestinal: normal, normoactive bowel sounds, other (colostomy) Integumentary: no rash Neurologic: other (awake, oriented to self. weakness) Musculoskeletal: joint swelling, other (left greater than right upper extremity swelling. ) Psychiatric: mood/affect appropriate - Lab 02/12/19 07:30 02/12/19 08:45 Most recent lab results Calcium 9.8 mg/dL (8.4-10.2) 02/12/19 08:45 Phosphorus 2.90 mg/dL (2.5-4.5) D 01/05/19 04:56 Magnesium 2.10 mg/dL (1.7-2.3) 02/08/19 06:09 - Imaging CT scan - pelvis: image reviewed (I reviewed CT with concern for large ulcer ? osteomyelitis sacral area. ) Medications & Allergies - Medications Allergies/Adverse Reactions: Allergies haloperidol [From Haldol] Adverse Reaction (Verified 03/13/18 12:10) Unknown haloperidol lactate [From Haldol] Adverse Reaction (Verified 03/13/18 12:10) Unknown Home Medications: Home Medications Medication Instructions Recorded Confirmed Last Taken Type risperiDONE [RisperDAL] 1 mg PO QAM 03/13/18 12/27/18 Unknown History Sertraline [Zoloft] 100 mg PO QDAY 08/26/18 12/27/18 Unknown History risperiDONE [RisperDAL] 0.5 mg PO HS 08/26/18 12/27/18 Unknown History Polyethylene Glycol 3350 [Miralax 17 gm PO QDAY #30 packet 11/05/18 12/27/18 Unknown Rx 3350] Aspirin EC 81 mg PO DAILY #30 11/19/18 12/27/18 Unknown Rx Docusate Sodium [Colace CAP] 100 mg PO BID #60 11/19/18 12/27/18 Unknown Rx Folic Acid [Folvite] 1 mg PO DAILY #30 tab 11/19/18 12/27/18 Unknown Rx Famotidine [Pepcid] 20 mg PO DAILY tablet 12/08/18 12/27/18 Unknown Rx Gabapentin [Neurontin] 100 mg PO QHS capsule 12/08/18 12/27/18 Unknown Rx Metoprolol [Lopressor TAB] 50 mg PO BID 30 Days tablet 12/08/18 12/27/18 Unknown Rx Sevelamer Carbonate [Renvela] 800 mg PO TIDWM tablet 12/08/18 12/27/18 Unknown Rx hydrALAZINE [Apresoline TAB] 100 mg PO Q8HR #120 tablet 12/08/18 12/27/18 Unknown Rx Acetaminophen [Acetaminophen TAB] 650 mg PO Q12H PRN 12/15/18 12/27/18 Unknown History Amino Acids/Protein Hydrolys 30 ml PO BID 12/15/18 12/27/18 Unknown History [Pro-Stat Sugar Free Liquid] Glucagon,Human Recombinant 1 mg IJ Q15MIN PRN 12/15/18 12/27/18 Unknown History [Glucagon Emergency Kit] Insulin Aspart [NovoLOG 100 See Protocol SQ QWEEK 12/15/18 12/27/18 Unknown History UNITS/ML VIAL] Epoetin Solitario 10,000 Unit [Procrit] 10,000 unit IV UMA PRN vial 12/18/1812/27 Unknown Rx Lispro Insulin [HumaLOG] 0 unit SUB-Q ACHS units 12/18/18 12/27/18 Unknown Rx risperiDONE [RisperDAL] 0.5 mg PO QHS tablet 12/18/18 12/27/18 Unknown Rx Meropenem [Merrem] 1,000 mg IV Q24HR vial 01/16/19 Unknown Rx Active Medications: Generic Name Dose Route Start Last Admin Trade Name Freq PRN Reason Stop Dose Admin Lipase/Protease/Amylase 1 each 01/28/19 14:53 Pancreaze 10,500 Unit FEEDTUBE PRN PRN For Clogged Feeding Tube Aspirin 81 mg 12/27/18 10:00 02/11/19 10:58 Halfprin Ec PO 81 mg DAILY SANCHEZ Administration Diltiazem HCl 60 mg 01/22/19 10:00 02/11/19 22:28 Cardizem PO 60 mg BID SANCHEZ Administration Diphenhydramine HCl 25 mg 01/26/19 05:54 02/07/19 21:52 Benadryl PO 25 mg Q6H PRN Administration Itching Epoetin Solitario 20,000 unit 01/05/19 11:03 02/10/19 12:01 Procrit IV 20,000 unit UMA PRN Administration hemodialysis Famotidine 20 mg 12/27/18 10:00 02/11/19 10:58 Pepcid PO 20 mg DAILY SANCHEZ Administration Folic Acid 1 mg 12/27/18 10:00 02/11/19 10:59 Folvite PO 1 mg DAILY SANCHEZ Administration Gabapentin 100 mg 12/26/18 22:00 02/11/19 22:28 Neurontin PO 100 mg QHS [facility] Administration Heparin Sodium (Porcine) 5,000 unit 01/23/19 22:00 02/11/19 22:28 Heparin SUB-Q 5,000 unit Q12HR SANCHEZ Administration Hydralazine HCl 100 mg 12/26/18 22:00 02/12/19 07:13 Apresoline PO 100 mg Q8HR SANCHEZ Administration Meropenem 1,000 mg/ Sodium 100 mls @ 100 mls/hr 01/05/19 11:00 02/11/19 11:10 Chloride IV 02/16/19 10:59 100 mls/hr Q24HR SANCHEZ Administration Sodium Chloride 100 mls @ 999 mls/hr 01/19/19 09:29 Nacl 0.9% IV MUA PRN Hypotension Vancomycin HCl 500 mg/ Sodium 110 mls @ 66.667 mls/hr 02/07/19 18:00 02/10/19 18:52 Chloride IV 02/16/19 10:00 66.667 mls/hr [id number] SANCHEZ Administration Insulin Human Regular 0 units 02/09/19 12:00 02/12/19 07:11 Humulin R SUB-Q Not Given Q6HR [facility] Protocol Metoprolol Tartrate 100 mg 12/31/18 22:00 02/11/19 22:28 Lopressor PO 100 mg BID SANCHEZ Administration Morphine Sulfate 2 mg 01/21/19 04:08 02/08/19 17:23 Morphine IV 2 mg Q4H PRN Administration Pain, Moderate (4-6) Nitroglycerin 0.4 mg 01/21/19 04:05 01/21/19 04:15 Nitrostat SL 0.4 mg .Q5MIN PRN Administration Chest Pain Oxycodone/Acetaminophen 1 tab 01/05/19 08:30 02/12/19 07:15 Percocet 5/325 PO 1 tab Q6H PRN Administration Pain, Moderate (4-6) Risperidone 0.5 mg 12/26/18 22:00 02/11/19 22:28 Risperdal PO 0.5 mg QHS SANCHEZ Administration Risperidone 1 mg 01/31/19 10:30 07/24/19 11:02 Risperdal PO 1 mg QAM SANCHEZ Administration Sertraline HCl 100 mg 12/27/18 10:00 02/11/19 10:58 Zoloft PO 100 mg QDAY SANCHEZ Administration Simple Syrup 15 ml 01/28/19 14:53 Simple Syrup FEEDTUBE PRN PRN Hypoglycemia Simple Syrup 30 ml 01/28/19 14:53 Simple Syrup FEEDTUBE PRN PRN Hypoglycemia Sodium Bicarbonate 325 mg 01/28/19 14:53 Sodium Bicarbonate FEEDTUBE PRN PRN For Clogged Feeding Tube Sodium Chloride 10 ml 12/26/18 22:00 02/11/19 22:28 Sodium Chloride Flush Syringe 10 Ml IV 10 ml BID SANCHEZ Administration Sodium Hypochlorite 1 applic 01/19/19 10:00 02/11/19 11:00 Dakin's Half Strength TP 1 applicatio QDAY SANCHEZ Administration
[2019-02-12] MEDS: HEPARIN SUB-Q SCH ×2 (10:37→22:02)
[2019-02-12] MEDS: SODIUM CHLORIDE FLUSH SYRINGE 10 ML IV SCH ×2 (10:37→22:03)
[2019-02-12] MEDS: PROCRIT IV PRN (11:17)
[2019-02-12] MEDS: MERREM 1,000 MG in NACL 0.9% 100 ML IV SCH (14:56)
[2019-02-12] MEDS: FOLVITE PO SCH (15:01)
[2019-02-12] MEDS: HALFPRIN EC PO SCH (15:01)
[2019-02-12] MEDS: PEPCID PO SCH (15:01)
[2019-02-12] MEDS: RisperDAL PO SCH ×2 (15:01→22:03)
[2019-02-12] MEDS: CARDIZEM PO SCH ×2 (15:02→22:03)
[2019-02-12] MEDS: ZOLOFT PO SCH (15:02)
[2019-02-12] MEDS: DAKIN'S HALF STRENGTH TP SCH (15:02)
[2019-02-12] MEDS: LOPRESSOR PO SCH ×2 (15:02→22:02)
[2019-02-12] MEDS: VANCOMYCIN 500 MG in NACL 0.9% 100 ML IV SCH (19:45)
[2019-02-12] MEDS: NEURONTIN PO SCH (22:02)
[2019-02-12] MEDS: BENADRYL PO PRN (23:02)
[2019-02-13] MEDS: HumuLIN R SUB-Q SCH ×3 (00:48→11:51)
[2019-02-13] MEDS: APRESOLINE PO SCH (05:41)
--- NOTE | 2019-02-13 10:15 | Discharge Summary ---
Providers - Providers Date of Admission: 12/26/18 21:40 Attending physician: JAY HYLTON MD 12/26/18 21:53 Consult to Physician [CONS] Routine Comment: Consulting Provider: GUSTABO JOHNSON Physician Instructions: Reason For Exam: ESRD 12/27/18 09:10 Consult to Wound/ET Nurse [CONS] Routine Reason For Exam: wound eval 12/27/18 13:35 Consult to Dietitian/Nutrition [CONS] Routine Physician Instructions: Reason For Exam: Reason for Consult: Write/Manage Tube Feeding 12/27/18 13:39 Speech Therapy Evaluation and Treat [CONS] Urgent Reason For Exam: DIFFICULTY SWALLOWING 12/29/18 16:13 Consult to Physician [CONS] Routine Comment: Consulting Provider: ZENY HINES Physician Instructions: Reason For Exam: EVALUATE SACRAL WOUND FOR POSSIBLE DEBRIDEMENT 12/31/18 17:04 Consult to Physician [CONS] Routine Comment: Consulting Provider: CATHY MATIAS Physician Instructions: Reason For Exam: PEG tube 01/01/19 21:07 Midline [Consult to PICC Line RN] [CONS] Stat Reason For Exam: IV antibiotic Type Line:: Midline 01/02/19 15:53 Consult to Dietitian/Nutrition [CONS] Routine Physician Instructions: Reason For Exam: Reason for Consult: Write/Manage Tube Feeding 01/03/19 12:10 Consult to Physician [CONS] Routine Comment: Consulting Provider: TREVOR GARCIA Physician Instructions: Reason For Exam: infected sacral decub 01/06/19 15:02 Consult to PICC Line RN [CONS] Routine Reason For Exam: OPAT Type Line:: PICC 01/07/19 12:22 Consult to Physician [CONS] Routine Comment: Consulting Provider: MIRANDA ISLAS Physician Instructions: Reason For Exam: Central line placement for 6 wk of IV abx, your pt 01/07/19 15:29 Consult to Case Management [CONS] Routine Services Needed at Discharge: Other Notified:: 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 Tunneled cath to be removed by vascular. Lines: Tunneled catheter/HD catheter Lab monitoring: CBC, ALT, AST, ESR, CRP vancomycin trough once a week preferly on Saturday morning. Please fax results to [phone] and call [phone] for critical lab results. Eduarda Comer NP/Bre Villela MD Date: 01/07/19 01/08/19 20:04 Consult to Dietitian/Nutrition [CONS] Routine Physician Instructions: Assess nutrtn needs, initiate, modify, manage TF Reason For Exam: Reason for Consult: Write/Manage Tube Feeding Reason for Consult: Write/Manage Tube Feeding Hospitalization Reason for admission: sepsis Condition: Fair Hospital course: Patient is a 63-year-old -[place] man from [facility] with a plethora of co-morbidities including blindness, CVA, CHF, PPM/ICD, loop recorder since 2012 that is MRI compatible, IDDM type 2, sepsis left foot ulcer, afib, ESRD wit h complications on HD TTS, hypertension, AOCD and GERD who presented to [facility] with altered sensorium and decreased responsiveness. Decreased responsive and not eating at all for 2 days. Patient has failure to thrive, altered mentation and weight loss of 20 pounds since 12/08/2018. Now being managed for Severe Sepsis due to Necrotizing Unstagable sacral decubitus ulcer with ostemomylitis, need abx till 02/16/19. need isolation SNF bed on discharge. --Necrotizing Unstagable sacral decubitus ulcer with ostemomylitis On 01/01/2019 open excisional debridement of necrotic and infected sacral wound noted a large amount of necrotic tissue debrided and two abscess cavities at the caudad portion of the wound with a copious amount of purulent drainage which was drained. Wound cultures 01/02/2019 ESBL Kleb, MDR Ecoli and E raffinosus resistant to penicillin:treated with meropenam and vanc per ID. Consult Vascular surgery for central line placement, planned for diverting colostomy, family has agreed, and underwent without complications, Cardiology re-evaluated for surgery, input noted, high CV risk. Dr. Villela recommend [facility], 01/08/19, now ongoing to run till 02/16/19. Further debridement done 01/14/19. he is medically stable awaiting placement. --Severe Sepsis due to sacral decubitus ulcers and osteomyelitis; antibiotics and wound care --Acute on chronic Anemia of chronic disease: s/p total of 8 units PRBC, follow cbc- no occult GI bleed noted. GI input noted, No retroperitoneal bleed noted. Although 150cc Of blood loss documented during debridement, No further bleeding from sacral wound noted, Dakins moistened kerlex packing started Pt is s/p x1 DDVAP --ESRD on HD: Nephology , hemodialysis per schedule. 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 Per discussion with Surgery and as documented by them Very poor prognosis for wound healing;Recommend Hospice.Family not willing Disposition: [id number] Time spent for discharge: 35 mins Core Measure Documentation - Palliative Care Palliative Care/ Comfort Measures: Not Applicable - Core Measures Any of the following diagnoses?: none Exam - Physical Exam Narrative exam: General appearance: Present: no acute distress, well-nourished - EENT Eyes: Present: PERRL, EOM intact - Neck Neck: Present: supple, normal ROM - Respiratory Respiratory effort: normal Respiratory: bilateral: diminished, negative: rales, rhonchi, wheezing - Cardiovascular Rhythm: regular Heart Sounds: Present: S1 & S2 - Extremities Extremities: no ischemia, abnormal (Sacral decubitus Stage IV) - Abdominal General gastrointestinal: soft, non-tender, non-distended, normal bowel sounds, diverticing colostomy - Integumentary Integumentary: Present: clear, warm - Psychiatric Psychiatric: appropriate mood/affect, other (blind) - Neurologic Neurologic: other (residual weakness) - Constitutional Vitals: Temp Pulse Resp BP Pulse Ox 98.0 F 77 18 128/75 100 02/13/19 05:07 02/13/19 05:07 02/13/19 05:07 02/13/19 05:07 02/13/19 05:07 Plan Activity: advance as tolerated, fall precautions Diet: advance as tolerated Special Instructions: record daily BP diary, record blood sugar diary Follow up with: JOSUÉ SMITH [Other] - 3-5 Days DONG GOMEZ MD [Staff Physician] - 7 Days ZENY HINES DO [Staff Physician] - 7 Days
[2019-02-13] MEDS: ZOLOFT PO SCH (10:47)
[2019-02-13] MEDS: HALFPRIN EC PO SCH (10:47)
[2019-02-13] MEDS: FOLVITE PO SCH (10:48)
[2019-02-13] MEDS: PEPCID PO SCH (10:48)
[2019-02-13] MEDS: RisperDAL PO SCH (10:48)
[2019-02-13] MEDS: CARDIZEM PO SCH (10:48)
[2019-02-13] MEDS: PERCOCET 5/325 PO PRN (10:48)
[2019-02-13] MEDS: SODIUM CHLORIDE FLUSH SYRINGE 10 ML IV SCH (10:49)
[2019-02-13] MEDS: LOPRESSOR PO SCH (10:49)
[2019-02-13] MEDS: DAKIN'S HALF STRENGTH TP SCH (10:50)
[2019-02-13] MEDS: MERREM 1,000 MG in NACL 0.9% 100 ML IV SCH (10:55)
[2019-02-13] MEDS: HEPARIN SUB-Q SCH (10:56)
[2019-02-13 13:26] VITALS: BP 113/61
--- NOTE | 2019-02-13 14:08 | Progress Note ---
Assessment and Plan - Patient Problems (1) ESRD (end stage renal disease) Status: Acute Plan to address problem: END-STAGE RENAL DISEASE. DIALYSIS ACCESS RIGHT tunnel dialysis catheter continue hemodialysis Saturday, , Saturday (2) CHF (congestive heart failure) Status: Acute Qualifiers: Heart failure type: unspecified Heart failure chronicity: acute on chronic Qualified Code(s): I50.9 - Heart failure, unspecified Plan to address problem: Chronic Congestive heart failure: continue current medications. (3) Anemia in ESRD (end-stage renal disease) Status: Chronic Plan to address problem: moderate Anemia due to chronic kidney disease Hb: 9.1g/dl continue epogen [id number] q TTS monitor cbc (4) Decubitus ulcer of sacral region, unstageable Status: Acute Plan to address problem: Large decubitus ulcer wound cultures with polymicrobial growth s/p diverting colostomy completed antibiotics with meropenem. Subjective Principal diagnosis: afib Interval history: 63 year old with medical history significant for HTN, dementia, ESRD on hemodialysis TTS via a Right IJ Perm cath . with infected decubitus ulcers . Patient seen today tolerated dialysis yesterday Plan for discharge today. Awake, denies any shortness of breath , no fevers or chills. Objective - Vital Signs Vital signs: Vital Signs - 12hr 02/13/19 02/13/19 02/13/19 05:07 10:48 10:49 Temperature 98.0 F Pulse Rate 77 Respiratory 18 Rate Blood Pressure 128/75 131/67 131/67 O2 Sat by Pulse 100 Oximetry 02/13/19 13:16 Temperature 97.7 F Pulse Rate 66 Respiratory 14 Rate Blood Pressure 113/61 O2 Sat by Pulse 97 Oximetry - General Appearance General appearance: well-developed, well-nourished EENT: ATNC, PERRL, mucous membranes moist Neck: no JVD Respiratory: Present: Clear to Ascultation Cardiology: regular, S1S2 Gastrointestinal: normal, normoactive bowel sounds Integumentary: no rash Neurologic: CN 3-12 intact, other (awake ,oriented to self , ) Psychiatric: mood/affect appropriate - Lab 02/12/19 07:30 02/12/19 08:45 Most recent lab results Calcium 9.8 mg/dL (8.4-10.2) 02/12/19 08:45 Phosphorus 2.90 mg/dL (2.5-4.5) D 01/05/19 04:56 Magnesium 2.10 mg/dL (1.7-2.3) 02/08/19 06:09 - Imaging CT scan - pelvis: other (I reviewed CT scan with large decubitus ulcer, osteomyelitis changes. ) Medications & Allergies - Medications Allergies/Adverse Reactions: Allergies haloperidol [From Haldol] Adverse Reaction (Verified 03/13/18 12:10) Unknown haloperidol lactate [From Haldol] Adverse Reaction (Verified 03/13/18 12:10) Unknown Home Medications: Home Medications Medication Instructions Recorded Confirmed Last Taken Type risperiDONE [RisperDAL] 1 mg PO QAM 03/13/18 12/27/18 Unknown History Sertraline [Zoloft] 100 mg PO QDAY 08/26/18 12/27/18 Unknown History risperiDONE [RisperDAL] 0.5 mg PO HS 08/26/18 12/27/18 Unknown History Polyethylene Glycol 3350 [Miralax 17 gm PO QDAY #30 packet 11/05/18 12/27/18 Unknown Rx 3350] Aspirin EC 81 mg PO DAILY #30 11/19/18 12/27/18 Unknown Rx Docusate Sodium [Colace CAP] 100 mg PO BID #60 11/19/18 12/27/18 Unknown Rx Folic Acid [Folvite] 1 mg PO DAILY #30 tab 11/19/18 12/27/18 Unknown Rx Famotidine [Pepcid] 20 mg PO DAILY tablet 12/08/18 12/27/18 Unknown Rx Gabapentin [Neurontin] 100 mg PO QHS capsule 12/08/18 12/27/18 Unknown Rx Metoprolol [Lopressor TAB] 50 mg PO BID 30 Days tablet 12/08/18 12/27/18 Unknown Rx Sevelamer Carbonate [Renvela] 800 mg PO TIDWM tablet 12/08/18 12/27/18 Unknown Rx hydrALAZINE [Apresoline TAB] 100 mg PO Q8HR #120 tablet 12/08/18 12/27/18 Unknown Rx Acetaminophen [Acetaminophen TAB] 650 mg PO Q12H PRN 12/15/18 12/27/18 Unknown History Amino Acids/Protein Hydrolys 30 ml PO BID 12/15/18 12/27/18 Unknown History [Pro-Stat Sugar Free Liquid] Glucagon,Human Recombinant 1 mg IJ Q15MIN PRN 12/15/18 12/27/18 Unknown History [Glucagon Emergency Kit] Insulin Aspart [NovoLOG 100 See Protocol SQ QWEEK 12/15/18 12/27/18 Unknown History UNITS/ML VIAL] Epoetin Solitario 10,000 Unit [Procrit] 10,000 unit IV UMA PRN vial 12/18/18 12/27/18 Unknown Rx Lispro Insulin [HumaLOG] 0 unit SUB-Q ACHS units 12/18/18 12/27/18 Unknown Rx risperiDONE [RisperDAL] 0.5 mg PO QHS tablet 12/18/18 12/27/18 Unknown Rx Meropenem [Merrem] 1,000 mg IV Q24HR vial 01/16/19 Unknown Rx
== END 2019-02-13 13:45 | DRG 853 ==
LOC: ED 16:11 → 3A 21:40 → 4A 23:31 → 3A 01-07 18:02
PROVIDERS: ADMIT Internal Medicine; ATTEND Internal Medicine
PROC: 5A1D70Z Performance of Urinary Filtration, Intermittent, Less than 6 Hours Per Day (ICD-10-PCS; 2018-12-27)
PROC: 5A1D70Z Performance of Urinary Filtration, Intermittent, Less than 6 Hours Per Day (ICD-10-PCS; 2018-12-30)
PROC: 0JB70ZZ Excision of Back Subcutaneous Tissue and Fascia, Open Approach (ICD-10-PCS; principal; 2019-01-01)
PROC: 5A1D70Z Performance of Urinary Filtration, Intermittent, Less than 6 Hours Per Day (ICD-10-PCS; 2019-01-01)
PROC: 0DH63UZ Insertion of Feeding Device into Stomach, Percutaneous Approach (ICD-10-PCS; 2019-01-02)
PROC: 5A1D70Z Performance of Urinary Filtration, Intermittent, Less than 6 Hours Per Day (ICD-10-PCS; 2019-01-03)
PROC: 5A1D70Z Performance of Urinary Filtration, Intermittent, Less than 6 Hours Per Day (ICD-10-PCS; 2019-01-06)
PROC: 5A1D70Z Performance of Urinary Filtration, Intermittent, Less than 6 Hours Per Day (ICD-10-PCS; 2019-01-08)
PROC: 0JH63XZ Insertion of Tunneled Vascular Access Device into Chest Subcutaneous Tissue and Fascia, Percutaneous Approach (ICD-10-PCS; 2019-01-08)
PROC: 02H633Z Insertion of Infusion Device into Right Atrium, Percutaneous Approach (ICD-10-PCS; 2019-01-08)
PROC: B2141ZZ Fluoroscopy of Right Heart using Low Osmolar Contrast (ICD-10-PCS; 2019-01-08)
PROC: B244ZZZ Ultrasonography of Right Heart (ICD-10-PCS; 2019-01-08)
PROC: 30233N1 Transfusion of Nonautologous Red Blood Cells into Peripheral Vein, Percutaneous Approach (ICD-10-PCS; 2019-01-09)
PROC: 5A1D70Z Performance of Urinary Filtration, Intermittent, Less than 6 Hours Per Day (ICD-10-PCS; 2019-01-10)
PROC: 5A1D70Z Performance of Urinary Filtration, Intermittent, Less than 6 Hours Per Day (ICD-10-PCS; 2019-01-12)
PROC: 0D1N4Z4 Bypass Sigmoid Colon to Cutaneous, Percutaneous Endoscopic Approach (ICD-10-PCS; 2019-01-12)
PROC: 5A1D70Z Performance of Urinary Filtration, Intermittent, Less than 6 Hours Per Day (ICD-10-PCS; 2019-01-13)
PROC: 0QB10ZZ Excision of Sacrum, Open Approach (ICD-10-PCS; 2019-01-14)
PROC: 5A1D70Z Performance of Urinary Filtration, Intermittent, Less than 6 Hours Per Day (ICD-10-PCS; 2019-01-15)
PROC: 5A1D70Z Performance of Urinary Filtration, Intermittent, Less than 6 Hours Per Day (ICD-10-PCS; 2019-01-17)
PROC: 5A1D70Z Performance of Urinary Filtration, Intermittent, Less than 6 Hours Per Day (ICD-10-PCS; 2019-01-19)
PROC: 5A1D70Z Performance of Urinary Filtration, Intermittent, Less than 6 Hours Per Day (ICD-10-PCS; 2019-01-20)
PROC: 5A1D70Z Performance of Urinary Filtration, Intermittent, Less than 6 Hours Per Day (ICD-10-PCS; 2019-01-22)
PROC: 5A1D70Z Performance of Urinary Filtration, Intermittent, Less than 6 Hours Per Day (ICD-10-PCS; 2019-01-24)
PROC: 5A1D70Z Performance of Urinary Filtration, Intermittent, Less than 6 Hours Per Day (ICD-10-PCS; 2019-01-27)
PROC: 5A1D70Z Performance of Urinary Filtration, Intermittent, Less than 6 Hours Per Day (ICD-10-PCS; 2019-01-29)
PROC: 5A1D70Z Performance of Urinary Filtration, Intermittent, Less than 6 Hours Per Day (ICD-10-PCS; 2019-01-31)
PROC: 5A1D70Z Performance of Urinary Filtration, Intermittent, Less than 6 Hours Per Day (ICD-10-PCS; 2019-02-03)
PROC: 5A1D70Z Performance of Urinary Filtration, Intermittent, Less than 6 Hours Per Day (ICD-10-PCS; 2019-02-05)
PROC: 5A1D70Z Performance of Urinary Filtration, Intermittent, Less than 6 Hours Per Day (ICD-10-PCS; 2019-02-07)
PROC: 5A1D70Z Performance of Urinary Filtration, Intermittent, Less than 6 Hours Per Day (ICD-10-PCS; 2019-02-10)
PROC: 5A1D70Z Performance of Urinary Filtration, Intermittent, Less than 6 Hours Per Day (ICD-10-PCS; 2019-02-12)
DX: A41.9 Sepsis, unspecified organism (principal); L89.154 Pressure ulcer of sacral region, stage 4; N18.6 End stage renal disease; I50.43 Acute on chronic combined systolic (congestive) and diastolic (congestive) heart failure; E43 Unspecified severe protein-calorie malnutrition; G93.41 Metabolic encephalopathy; K72.91 Hepatic failure, unspecified with coma; I21.A1 Myocardial infarction type 2; I13.2 Hypertensive heart and chronic kidney disease with heart failure and with stage 5 chronic kidney disease, or end stage renal disease; E87.1 Hypo-osmolality and hyponatremia; I42.9 Cardiomyopathy, unspecified; N25.81 Secondary hyperparathyroidism of renal origin; D62 Acute posthemorrhagic anemia; M86.8X8 Other osteomyelitis, other site; D63.1 Anemia in chronic kidney disease; I48.2 Chronic atrial fibrillation; I25.10 Atherosclerotic heart disease of native coronary artery without angina pectoris; I27.20 Pulmonary hypertension, unspecified; F20.9 Schizophrenia, unspecified; H54.8 Legal blindness, as defined in USA; E11.22 Type 2 diabetes mellitus with diabetic chronic kidney disease; R62.7 Adult failure to thrive; D69.6 Thrombocytopenia, unspecified; E11.42 Type 2 diabetes mellitus with diabetic polyneuropathy; E83.51 Hypocalcemia; E11.621 Type 2 diabetes mellitus with foot ulcer; L97.529 Non-pressure chronic ulcer of other part of left foot with unspecified severity; B96.20 Unspecified Escherichia coli [E. coli] as the cause of diseases classified elsewhere; B96.1 Klebsiella pneumoniae [K. pneumoniae] as the cause of diseases classified elsewhere; R07.89 Other chest pain; K66.0 Peritoneal adhesions (postprocedural) (postinfection); Z16.12 Extended spectrum beta lactamase (ESBL) resistance; Z16.24 Resistance to multiple antibiotics; E83.39 Other disorders of phosphorus metabolism; E11.69 Type 2 diabetes mellitus with other specified complication; E83.42 Hypomagnesemia; E87.5 Hyperkalemia; Z16.11 Resistance to penicillins; R65.20 Severe sepsis without septic shock; Z99.2 Dependence on renal dialysis; Z68.30 Body mass index [BMI] 30.0-30.9, adult; Z95.1 Presence of aortocoronary bypass graft; Z86.73 Personal history of transient ischemic attack (TIA), and cerebral infarction without residual deficits; Z95.810 Presence of automatic (implantable) cardiac defibrillator; Z90.49 Acquired absence of other specified parts of digestive tract; Z79.82 Long term (current) use of aspirin; Z79.899 Other long term (current) drug therapy; Z88.8 Allergy status to other drugs, medicaments and biological substances; Z79.4 Long term (current) use of insulin; Z74.01 Bed confinement status
CPT/HCPCS: 36415; 36430; 36558; 70450; 71045; 72170; 74176; 77001; 80048; 80053; 80061; 80074; 80202; 82140; 82270; 82550; 82962; 83036; 83735; 83970; 84100; 84132; 84484; 85007; 85014; 85018; 85025; 85027; 85610; 86850; 86900; 86901; 86920; 87040; 87076; 87116; 87186; 93005; 93010; 96365; G0378; A6260; C1751; C1769; J0282; J0690; J0692; J0885; J1170; J1644; J1815; J2185; J2250; J2270; J2370; J2405; J2543; J2597; J2704; J2710; J3010; J3370; J3475; J7030; J7040; J7050; J7070; P9016

== ENCOUNTER 2019-02-21 18:02 | Inpatient (IN) | payer MEDICARE ==
[2019-02-21] MEDS ORDERED: SODIUM CHLORIDE 0.9% 1000 ML 2,000 ML ONE (18:15)
[2019-02-21] MEDS ORDERED: SODIUM CHLORIDE 0.9% 1000 ML IV SOLN IV ONE (18:21)
[2019-02-21] MEDS ORDERED: fentaNYL 100 MCG/2 ML INJ IV PRN (18:24)
[2019-02-21] MEDS ORDERED: LIP THERAPY VASELINE TP PRN (18:24)
[2019-02-21] MEDS ORDERED: MIDAZOLAM 2 MG/2 ML INJ IV PRN (18:24)
[2019-02-21] MEDS ORDERED: MIDAZOLAM 100 MG in SODIUM CHLORIDE 0.9% 80 ML IV SCH (19:00)
[2019-02-21] MEDS ORDERED: CEFEPIME/NS 2 GM/100 ML 2 GM/100 ML BAG IV SCH (19:00)
[2019-02-21 19:06] LABS: Basophils % (Auto) 0.5 % (0.0-1.8); Eosinophils # (Auto) 0.1 K/mm3 (0.0-0.4); Eosinophils % (Auto) 1.3 % (0.0-4.3); Hemoglobin 8.8 gm/dl (11.8-15.2); Lymphocytes # (Auto) 0.4 K/mm3 (1.2-5.4); Lymphocytes % (Auto) 6.1 % (13.4-35.0); Mean Corpuscular HGB Conc 30 % (32-34); Mean Corpuscular Volume 89 fl (84-94); Monocytes # (Auto) 0.4 K/mm3 (0.0-0.8); Monocytes % (Auto) 5.9 % (0.0-7.3); Platelet Count 365 K/mm3 (140-440); Red Blood Count 3.26 M/mm3 (3.65-5.03); Red Cell Distribution Width 19.1 % (13.2-15.2)
--- NOTE | 2019-02-21 19:10 | Emergency Department Report ---
ED General Adult HPI - General Chief complaint: Cardiac Arrest/CPR Stated complaint: UNRESPONSIVE Time Seen by Provider: 02/21/19 18:19 Source: EMS (problem report received from EMS.ems notes not available at time of chart dictation), RN notes reviewed, old records reviewed Mode of arrival: Stretcher Limitations: Altered Mental Status, Physical Limitation, Other - History of Present Illness Initial comments: Primary care Dr.: Dr. Rubin Varela Sulphate Tester: Dr. Smith Past medical history: Blind, stroke, congestive heart failure, ICD, loop recorder, that she diabetes, A. fib, end-stage renal disease, on hemodialysis, Saturday, , Saturday, GERD, unstageable sacral ulcer with osteomyelitis, status post debridement, found to have necrotic tissue and abscess cavities, found to have multiple bacteria, with ertapenem and vancomycin as per infectious disease. Also has left thoracic PICC line, and colostomy Patient brought to the hospital by EMS for altered mental status and respiratory distress. Last known well time is not explicitly known. EMS states normal Accu-Chek in the field. EMS placed Tesfaye airway in the field, which the patient subsequently removed. The patient upon arrival to the ER is altered, and not protecting his airway. He requires [id number] ventilation, and oral airway. He is placed on nasal cannula at 15 L/m, and received simultaneous [id number] ventilation. A 7.5 endotracheal tube was inserted by myself, with no difficulty. Post intubation breath sounds are appropriate, he has appropriate end tidal color change, and vocal cords were directly visualized on direct laryngoscopy. EMS placed a left lower extremity intraosseous line, which is leaking and subsequently discontinued. However, the left thoracic PICC line is quite usable. Patient is altered upon arrival, and therefore not able to describe exacerbating or relieving factors, qualitative nature of his symptoms, or radiation of his symptoms. He is initially hypotensive post intubation, but corrects with IV fluids. As per verbal report from EMS, the patient is full code. -: unknown Radiation: other Quality: other Consistency: other Worsens with: other - Related Data Home Medications Medication Instructions Recorded Confirmed Last Taken risperiDONE [RisperDAL] 1 mg PO QAM 03/13/18 02/21/19 Unknown Sertraline [Zoloft] 100 mg PO QDAY 08/26/18 02/21/19 Unknown Acetaminophen [Acetaminophen TAB] 650 mg PO Q12H PRN 12/15/18 02/21/19 Unknown Glucagon,Human Recombinant 1 mg IJ Q15MIN PRN 12/15/18 02/21/19 Unknown [Glucagon Emergency Kit] Insulin Aspart [NovoLOG 100 See Protocol SQ QWEEK 12/15/18 02/21/19 Unknown UNITS/ML VIAL] Previous Rx's Medication Instructions Recorded Last Taken Type Polyethylene Glycol 3350 [Miralax 17 gm PO QDAY #30 packet 11/05/18 Unknown Rx 3350] Aspirin EC 81 mg PO DAILY #30 11/19/18 Unknown Rx Docusate Sodium [Colace CAP] 100 mg PO BID #60 11/19/18 Unknown Rx Folic Acid [Folvite] 1 mg PO DAILY #30 tab 11/19/18 Unknown Rx Famotidine [Pepcid] 20 mg PO DAILY tablet 12/08/18 Unknown Rx Gabapentin [Neurontin] 100 mg PO QHS capsule 12/08/18 Unknown Rx Metoprolol [Lopressor TAB] 50 mg PO BID 30 Days tablet 12/08/18 Unknown Rx Sevelamer Carbonate [Renvela] 800 mg PO TIDWM tablet 12/08/18 Unknown Rx hydrALAZINE [Apresoline TAB] 100 mg PO Q8HR #120 tablet 12/08/18 Unknown Rx Allergies Allergy/AdvReac Type Severity Reaction Status Date / Time haloperidol [From Haldol] AdvReac Unknown Verified 03/13/18 12:10 haloperidol lactate AdvReac Unknown Verified 03/13/18 12:10 [From Haldol] ED Review of Systems ROS: Stated complaint: UNRESPONSIVE Other details as noted in HPI Comment: Unobtainable due to pts medical conditions ED Past Medical Hx - Past Medical History Hx Hypertension: Yes Hx CVA: Yes Hx Heart Attack/AMI: No Hx Congestive Heart Failure: Yes Hx Diabetes: Yes Hx Renal Disease: Yes (TTS dialysis (Dr. Layne)) Hx Asthma: No Hx COPD: Yes Hx Dementia: Yes Hx HIV: No Additional medical history: A. FIB; Legally Blind. Iron-deficiency Anemia. Hyperparathyroidism. Hypocalcemia. renal osteodystrophy - Surgical History Hx Open Heart Surgery: Yes Hx Pacemaker: Yes (defibrillator) Hx Internal Defibrillator: Yes Hx Appendectomy: Yes Additional Surgical History: AV fistula in the left upper extremity, hemorrhoidectomy - Social History Smoking Status: Unknown if ever smoked - Medications Home Medications: Home Medications Medication Instructions Recorded Confirmed Last Taken Type risperiDONE [RisperDAL] 1 mg PO QAM 03/13/18 02/21/19 Unknown History Sertraline [Zoloft] 100 mg PO QDAY 08/26/18 02/21/19 Unknown History Polyethylene Glycol 3350 [Miralax 17 gm PO QDAY #30 packet 11/05/18 02/21/19 Unknown Rx 3350] Aspirin EC 81 mg PO DAILY #30 11/19/18 02/21/19 Unknown Rx Docusate Sodium [Colace CAP] 100 mg PO BID #60 11/19/18 02/21/19 Unknown Rx Folic Acid [Folvite] 1 mg PO DAILY #30 tab 11/19/18 02/21/19 Unknown Rx Famotidine [Pepcid] 20 mg PO DAILY tablet 12/08/18 02/21/19 Unknown Rx Gabapentin [Neurontin] 100 mg PO QHS capsule 12/08/18 02/21/19 Unknown Rx Metoprolol [Lopressor TAB] 50 mg PO BID 30 Days tablet 12/08/18 02/21/19 Unknown Rx Sevelamer Carbonate [Renvela] 800 mg PO TIDWM tablet 12/08/18 02/21/19 Unknown Rx hydrALAZINE [Apresoline TAB] 100 mg PO Q8HR #120 tablet 12/08/18 02/21/19 Unknown Rx Acetaminophen [Acetaminophen TAB] 650 mg PO Q12H PRN 12/15/18 02/21/19 Unknown History Glucagon,Human Recombinant 1 mg IJ Q15MIN PRN 12/15/18 02/21/19 Unknown History [Glucagon Emergency Kit] Insulin Aspart [NovoLOG 100 See Protocol SQ QWEEK 12/15/18 02/21/19 Unknown History UNITS/ML VIAL] ED Physical Exam - General Limitations: Altered Mental Status, Other (there is a right-sided thoracic permacath noted.) General appearance: obtunded - Head Head exam: Present: atraumatic - Eye Eye exam: Present: other (patient has prosthetic right eye. ) - ENT ENT exam: Present: other (copious secretions noted in the oropharynx) - Neck Neck exam: Present: normal inspection - Respiratory Respiratory exam: Present: respiratory distress, rhonchi - Cardiovascular Cardiovascular Exam: Present: tachycardia, irregular rhythm. Absent: systolic murmur, diastolic murmur - GI/Abdominal GI/Abdominal exam: Present: soft, other (colostomy is noted draining around feculent material. Feeding tube is noted.). Absent: distended, tenderness, guarding, rebound - Rectal Rectal exam: Present: other (there is a large cavernous unstageable sacral ulcer) - Extremities Exam Extremities exam: Present: other (there is no long bony tenderness. The compartments are soft. The pelvis is stable.) - Back Exam Back exam: Absent: tenderness, CVA tenderness (R) - Neurological Exam Neurological exam: Present: altered, other (patient is altered upon presentation, requires immediate intubation, eyes are closed, patient does not respond to painful stimuli, and he is nonverbal.) - Psychiatric Psychiatric exam: Present: other (the patient is nonverbal) ED Course Vital Signs 02/21/19 02/21/19 02/21/19 18:16 19:16 19:31 Temperature 97.2 F L Pulse Rate 106 H 59 L 70 Respiratory 10 L 24 20 Rate Blood Pressure 93/58 152/89 O2 Sat by Pulse 100 100 Oximetry 02/21/19 02/21/19 02/21/19 19:32 19:45 19:49 Temperature Pulse Rate 70 69 69 Respiratory 24 24 24 Rate Blood Pressure 152/89 129/77 135/77 O2 Sat by Pulse 100 100 100 Oximetry 02/21/19 02/21/19 02/21/19 19:54 20:01 20:23 Temperature Pulse Rate 69 69 69 Respiratory 24 15 Rate Blood Pressure 129/77 138/75 129/77 O2 Sat by Pulse 100 100 Oximetry 02/21/19 02/21/19 02/21/19 20:31 20:45 21:00 Temperature Pulse Rate 70 73 70 Respiratory 24 25 H 24 Rate Blood Pressure 105/72 108/66 114/66 O2 Sat by Pulse 100 97 99 Oximetry 02/21/19 02/21/19 02/21/19 21:15 21:30 21:45 Temperature Pulse Rate 71 70 70 Respiratory 24 24 24 Rate Blood Pressure 138/75 120/76 114/66 O2 Sat by Pulse 99 100 99 Oximetry 02/21/19 02/21/19 02/21/19 22:01 22:15 22:30 Temperature Pulse Rate 70 71 71 Respiratory 24 24 24 Rate Blood Pressure 124/64 122/73 122/72 O2 Sat by Pulse 98 100 100 Oximetry 02/21/19 02/21/19 02/21/19 22:45 23:00 23:15 Temperature Pulse Rate 71 70 71 Respiratory 24 24 24 Rate Blood Pressure 121/72 120/70 118/76 O2 Sat by Pulse 100 100 100 Oximetry 02/21/19 02/21/19 02/22/19 23:30 23:45 00:00 Temperature Pulse Rate 71 71 72 Respiratory 24 24 24 Rate Blood Pressure 119/74 119/72 121/77 O2 Sat by Pulse 100 100 100 Oximetry 02/22/19 02/22/19 02/22/19 00:15 00:30 00:45 Temperature Pulse Rate 71 71 71 Respiratory 24 24 24 Rate Blood Pressure 124/74 135/79 121/77 O2 Sat by Pulse 100 100 100 Oximetry 02/22/19 02/22/19 02/22/19 01:00 01:15 01:30 Temperature Pulse Rate 71 71 71 Respiratory 24 24 24 Rate Blood Pressure 133/69 140/83 129/79 O2 Sat by Pulse 100 100 100 Oximetry 02/22/19 02/22/19 02/22/19 01:45 02:00 02:15 Temperature Pulse Rate 71 72 71 Respiratory 24 24 24 Rate Blood Pressure 140/83 120/79 120/79 O2 Sat by Pulse 100 100 100 Oximetry 02/22/19 02/22/19 02/22/19 02:30 02:45 03:00 Temperature Pulse Rate 71 71 70 Respiratory 24 24 24 Rate Blood Pressure 118/65 123/73 119/63 O2 Sat by Pulse 100 100 100 Oximetry 02/22/19 02/22/19 02/22/19 03:15 03:30 03:45 Temperature Pulse Rate 70 70 69 Respiratory 23 23 24 Rate Blood Pressure 120/71 120/70 134/77 O2 Sat by Pulse 100 100 100 Oximetry 02/22/19 02/22/19 02/22/19 03:53 04:00 04:15 Temperature Pulse Rate 70 70 70 Respiratory 23 23 Rate Blood Pressure 120/70 129/75 115/70 O2 Sat by Pulse 100 100 100 Oximetry 02/22/19 02/22/19 02/22/19 04:30 04:45 05:00 Temperature Pulse Rate 70 69 70 Respiratory 24 23 24 Rate Blood Pressure 124/72 124/72 113/70 O2 Sat by Pulse 100 100 100 Oximetry 02/22/19 02/22/19 02/22/19 05:15 05:31 05:45 Temperature Pulse Rate 70 75 69 Respiratory 24 24 24 Rate Blood Pressure 118/75 122/71 122/71 O2 Sat by Pulse 100 91 80 L Oximetry 02/22/19 02/22/19 02/22/19 06:00 06:03 06:15 Temperature 96.0 F L Pulse Rate 69 70 Respiratory 22 24 Rate Blood Pressure 128/78 128/78 O2 Sat by Pulse 100 100 Oximetry 02/22/19 02/22/19 02/22/19 06:31 06:45 07:01 Temperature Pulse Rate 70 70 70 Respiratory 24 24 25 H Rate Blood Pressure 128/78 128/78 135/51 O2 Sat by Pulse 99 100 100 Oximetry 02/22/19 02/22/19 02/22/19 07:15 07:30 08:23 Temperature Pulse Rate 75 71 88 Respiratory 24 24 9 L Rate Blood Pressure 135/51 109/66 O2 Sat by Pulse 100 100 Oximetry 02/22/19 02/22/19 02/22/19 08:31 08:45 09:00 Temperature Pulse Rate 79 70 70 Respiratory 24 24 24 Rate Blood Pressure 122/61 109/66 106/64 O2 Sat by Pulse 100 100 100 Oximetry 02/22/19 02/22/19 02/22/19 09:15 09:30 09:45 Temperature Pulse Rate 70 70 69 Respiratory 24 21 24 Rate Blood Pressure 99/61 97/57 107/65 O2 Sat by Pulse 100 100 100 Oximetry 02/22/19 02/22/19 02/22/19 10:00 10:15 10:30 Temperature Pulse Rate 69 68 68 Respiratory 24 24 24 Rate Blood Pressure 111/67 113/68 120/69 O2 Sat by Pulse 100 100 Oximetry 02/22/19 02/22/19 02/22/19 10:45 11:00 11:15 Temperature Pulse Rate 82 68 68 Respiratory 24 24 24 Rate Blood Pressure 120/69 111/63 119/66 O2 Sat by Pulse 100 100 100 Oximetry 02/22/19 02/22/19 02/22/19 11:30 11:45 12:00 Temperature Pulse Rate 68 67 68 Respiratory 24 24 24 Rate Blood Pressure 121/68 121/68 131/72 O2 Sat by Pulse 100 100 100 Oximetry 02/22/19 02/22/19 02/22/19 12:15 12:30 12:45 Temperature Pulse Rate 69 68 68 Respiratory 24 24 24 Rate Blood Pressure 131/72 125/71 125/71 O2 Sat by Pulse 100 100 99 Oximetry 02/22/19 02/22/19 02/22/19 13:01 13:11 13:15 Temperature Pulse Rate 87 77 73 Respiratory 13 24 Rate Blood Pressure 117/52 115/52 117/52 O2 Sat by Pulse 93 100 100 Oximetry 02/22/19 02/22/19 02/22/19 13:31 13:45 14:01 Temperature Pulse Rate 68 77 69 Respiratory 23 24 24 Rate Blood Pressure 127/71 121/57 130/84 O2 Sat by Pulse 100 100 100 Oximetry 02/22/19 02/22/19 02/22/19 14:15 14:30 14:45 Temperature Pulse Rate 68 69 69 Respiratory 24 24 23 Rate Blood Pressure 130/84 108/60 108/56 O2 Sat by Pulse 100 100 100 Oximetry 02/22/19 02/22/19 02/22/19 15:01 15:15 15:31 Temperature Pulse Rate 69 69 68 Respiratory 23 16 20 Rate Blood Pressure 88/52 108/60 115/74 O2 Sat by Pulse 100 100 100 Oximetry 02/22/19 02/22/19 02/22/19 15:45 16:01 16:15 Temperature Pulse Rate 68 90 69 Respiratory 12 12 12 Rate Blood Pressure 117/56 118/64 117/56 O2 Sat by Pulse 100 100 100 Oximetry 02/22/19 02/22/19 02/22/19 16:31 16:45 17:00 Temperature Pulse Rate 92 H 92 H 92 H Respiratory 12 12 12 Rate Blood Pressure 133/86 133/86 106/65 O2 Sat by Pulse 100 100 100 Oximetry 02/22/19 02/22/19 02/22/19 17:15 17:30 17:45 Temperature Pulse Rate 69 69 68 Respiratory 12 12 12 Rate Blood Pressure 104/70 91/54 91/54 O2 Sat by Pulse 100 100 100 Oximetry 02/22/19 02/22/19 02/22/19 18:00 18:15 18:31 Temperature Pulse Rate 67 67 67 Respiratory 12 12 12 Rate Blood Pressure 127/95 87/51 127/95 O2 Sat by Pulse 100 100 100 Oximetry 02/22/19 02/22/19 02/22/19 18:45 19:01 19:10 Temperature Pulse Rate 90 88 83 Respiratory 20 20 Rate Blood Pressure 127/95 127/95 127/95 O2 Sat by Pulse 100 100 100 Oximetry 02/22/19 02/22/19 02/22/19 19:15 19:31 19:45 Temperature Pulse Rate 73 83 69 Respiratory 20 20 20 Rate Blood Pressure 127/95 127/95 127/95 O2 Sat by Pulse 100 100 100 Oximetry 02/22/19 02/22/19 02/22/19 20:01 20:15 20:31 Temperature Pulse Rate 68 69 69 Respiratory 19 20 20 Rate Blood Pressure 127/95 127/95 127/95 O2 Sat by Pulse 100 100 100 Oximetry 02/22/19 02/22/19 02/22/19 20:45 21:01 21:15 Temperature Pulse Rate 69 92 H 92 H Respiratory 20 20 17 Rate Blood Pressure 127/95 127/95 127/95 O2 Sat by Pulse 100 100 100 Oximetry 02/22/19 02/22/19 02/22/19 21:30 21:35 21:45 Temperature Pulse Rate 92 H 92 H 70 Respiratory 20 20 20 Rate Blood Pressure 130/82 130/82 130/82 O2 Sat by Pulse 100 100 100 Oximetry 02/22/19 02/22/19 02/22/19 22:00 22:02 23:04 Temperature Pulse Rate 69 69 93 H Respiratory 20 20 12 Rate Blood Pressure 122/71 122/71 O2 Sat by Pulse 100 100 Oximetry 02/22/19 23:16 Temperature Pulse Rate 69 Respiratory Rate Blood Pressure 122/71 O2 Sat by Pulse 100 Oximetry - Reevaluation(s) Reevaluation #1: 02/21/19 19:14 Differential diagnosis, including but not limited to: Azotemia, uremia, pneumonia, urinary tract infection, infected wound, intracranial lesion/intracranial hemorrhage, bacteremia, viremia Assessment and plan: 63-year-old gentleman with altered mental status, less so well time is not known, acute respiratory failure requiring intubation. Patient will be treated empirically with broad-spectrum antibiotics, IV fluids, and lung protective ventilation strategy. A code sepsis is called overhead. X-ray of the chest shows appropriate positioning of the endotracheal tube and PICC line. Noncontrast CT scan of the brain is pending at this time. Screening laboratory studies are pending at this time. Discussed with nephrology on-call, Dr. Pierre, who agrees to follow the patient in consultation. He requests call back if screening laboratory studies suggest the need for emergent dialysis. Discussed the case with critical care physician on-call, Dr. Scarlett Kee, who agrees with placement into the intensive care unit. Prognosis is quite poor for this unfortunate patient. 02/21/19 19:17 Reevaluation #2: 02/21/19 19:31 Labs are reviewed and appreciated. X-ray of the chest reviewed and appreciated. Patient hypotensive with a blood pressure in the 70s right after intubation. It is my opinion that the patient will benefit from aggressive fluid resuscitation. Therefore, we'll continue with 3 L of IV fluid as initially recommended. Reevaluation #3: 02/21/19 19:41 Care will be transferred to the oncoming physician, Dr. Scarlett Tinajero, to follow-up o n CT scan of the brain, an additional serum toxicology studies. Recommend admission once diagnostics have resulted. Reevaluation #4: 02/21/19 19:55 elevated troponin likely secondary to ckd, type 2 troponin leak - Intubation Time Out Performed: No (emergency situation) Sedative: Etomidate Mg Given: 20 Paralytic: Rocuronium Mg Given: 100 Laryngoscope: Mamie Size: 4 ET Tube Size: 7.5 Tube Secured Depth (cm): 23 Tube Secured Location: teeth Tube Placement Confirmation: visualized tube passing t, equal breath sounds bilat, no breath sounds over epi, confirmation by capnometr Patient Tolerated Procedure: well Intubation Complications: none ED Medical Decision Making - Lab Data Result diagrams: 02/22/19 03:42 02/23/19 05:00 Vital Signs 02/21/19 18:16 Temperature 97.2 F L Pulse Rate 106 H Respiratory 10 L Rate Blood Pressure 93/58 O2 Sat by Pulse 100 Oximetry Lab Results 02/21/19 02/21/19 02/21/19 Range/Units 18:30 18:30 18:30 WBC 7.3 (4.5-11.0) K/mm3 RBC 3.26 L (3.65-5.03) M/mm3 Hgb 8.8 L (11.8-15.2) gm/dl Hct 29.0 L (35.5-45.6) % MCV 89 (84-94) fl MCH 27 L (28-32) pg MCHC 30 L (32-34) % RDW 19.1 H (13.2-15.2) % Plt Count 365 (140-440) K/mm3 Lymph % (Auto) 6.1 L (13.4-35.0) % Josephine % (Auto) 5.9 (0.0-7.3) % Eos % (Auto) 1.3 (0.0-4.3) % Baso % (Auto) 0.5 (0.0-1.8) % Lymph # 0.4 L (1.2-5.4) K/mm3 Josephine # 0.4 (0.0-0.8) K/mm3 Eos # 0.1 (0.0-0.4) K/mm3 Baso # 0.0 (0.0-0.1) K/mm3 Seg Neutrophils % 86.2 H (40.0-70.0) % Seg Neutrophils # 6.3 (1.8-7.7) K/mm3 APTT 33.7 (24.2-36.6) Sec. POC ABG pH (7.35-7.45) POC ABG pCO2 (35-45) POC ABG pO2 (80-105) POC ABG HCO3 (22-26 mml/L) POC ABG Total CO2 (23-27mmol/L) POC ABG O2 Sat POC ABG Base Excess ((-2) - (+3)mmol/L) FiO2 % Sodium 133 L (137-145) mmol/L Potassium 3.3 L (3.6-5.0) mmol/L Chloride 93.1 L (98-107) mmol/L Carbon Dioxide 33 H (22-30) mmol/L Anion Gap 10 mmol/L BUN 15 (9-20) mg/dL Creatinine 1.3 (0.8-1.5) mg/dL Estimated GFR > 60 ml/min BUN/Creatinine Ratio 12 % Glucose 161 H (75-100) mg/dL Calcium 9.2 (8.4-10.2) mg/dL Magnesium (1.7-2.3) mg/dL Total Bilirubin 0.20 (0.1-1.2) mg/dL AST 17 (5-40) units/L ALT 7 (7-56) units/L Alkaline Phosphatase 136 H (35-129) units/L Total Creatine Kinase (55-170) units/L Total Protein 6.7 (6.3-8.2) g/dL Albumin 2.4 L (3.9-5) g/dL Albumin/Globulin Ratio 0.6 % 02/21/19 02/21/19 Range/Units 18:30 18:42 WBC (4.5-11.0) K/mm3 RBC (3.65-5.03) M/mm3 Hgb (11.8-15.2) gm/dl Hct (35.5-45.6) % MCV (84-94) fl MCH (28-32) pg MCHC (32-34) % RDW (13.2-15.2) % Plt Count (140-440) K/mm3 Lymph % (Auto) (13.4-35.0) % Josephine % (Auto) (0.0-7.3) % Eos % (Auto) (0.0-4.3) % Baso % (Auto) (0.0-1.8) % Lymph # (1.2-5.4) K/mm3 Josephine # (0.0-0.8) K/mm3 Eos # (0.0-0.4) K/mm3 Baso # (0.0-0.1) K/mm3 Seg Neutrophils % (40.0-70.0) % Seg Neutrophils # (1.8-7.7) K/mm3 APTT (24.2-36.6) Sec. POC ABG pH 7.364 (7.35-7.45) POC ABG pCO2 56.7 H (35-45) POC ABG pO2 291 H (80-105) POC ABG HCO3 32.4 (22-26 mml/L) POC ABG Total CO2 34 (23-27mmol/L) POC ABG O2 Sat 100 POC ABG Base Excess 7 ((-2) - (+3)mmol/L) FiO2 100 % Sodium (137-145) mmol/L Potassium (3.6-5.0) mmol/L Chloride (98-107) mmol/L Carbon Dioxide (22-30) mmol/L Anion Gap mmol/L BUN (9-20) mg/dL Creatinine (0.8-1.5) mg/dL Estimated GFR ml/min BUN/Creatinine Ratio % Glucose (75-100) mg/dL Calcium (8.4-10.2) mg/dL Magnesium 2.20 (1.7-2.3) mg/dL Total Bilirubin (0.1-1.2) mg/dL AST (5-40) units/L ALT (7-56) units/L Alkaline Phosphatase (35-129) units/L Total Creatine Kinase 37 L (55-170) units/L Total Protein (6.3-8.2) g/dL Albumin (3.9-5) g/dL Albumin/Globulin Ratio % - EKG Data 02/21/19 19:30 EKG shows a sinus rhythm, 93 beats minute, normal axis, QTC prolonged, atrial enlargement, poor progression, the EKG is abnormal, the EKG is not consistent with ST elevation myocardial infarction. - Radiology Data Radiology results: report reviewed, image reviewed Print Report Referring Physician: JACQUIE GARCIA Patient Name: LUCITA PARSONS Date of : 1955 Sex: Male Report Date: 2019-02-21 Report Status: Finalized Findings [facility], [place] [address] [place] [address] XRay Report Signed Patient: LUCITA PARSONS MR#: [id number] 59 : 1955 Acct:[id number] Age/Sex: 63 / M ADM Date: 02/21/19 Loc: ED Attending Dr: Ordering Physician: JACQUIE GARCIA MD Date of Service: 02/21/19 Procedure(s): XR chest 1V ap Accession Number(s): [id number] cc: JACQUIE GARCIA MD Fluoro Time In Minutes: CHEST 1 VIEW 02/21/2019 6:55 PM INDICATION / CLINICAL INFORMATION: ETT placement. COMPARISON: Chest x-ray 12/26/2018 FINDINGS: SUPPORT DEVICES: New ET tube has tip 7 cm above sade. New left internal jugular central line has tip in SVC. Right internal jugular dialysis catheter again projects over SVC. Leadless cardiac pacemaker is again noted. HEART / MEDIASTINUM: Cardiac silhouette remains mildly enlarged. LUNGS / PLEURA: Mild pulmonary edema. No pneumothorax. ADDITIONAL FINDINGS: Vascular stents project over medial aspect of left arm and axilla, unchanged IMPRESSION: 1. Mild CHF. Signer Name: Carlos Hanley MD Signed: 02/21/2019 7:22 PM Workstation Name: [email or web address] Transcribed By: TL Dictated By: Carlos Hanley MD Electronically Authenticated By: Carlos Hanley MD Signed Date/Time: 02/21/191921 Critical Care Time: Yes Critical care time in (mins) excluding proc time.: 60 Critical care attestation.: If time is entered above; I have spent that time in minutes in the direct care of this critically ill patient, excluding procedure time. ED Disposition Clinical Impression: Encephalopathy, End stage renal disease on dialysis, Decubitus ulcer of sacral region, unstageable, Respiratory failure Disposition: OP ADMIT IP TO THIS HOSP Is pt being admited?: Yes Does the pt Need Aspirin: No Condition: Critical
[2019-02-21 19:26] LABS: Alanine Aminotransferase 7 units/L (7-56); Albumin 2.4 g/dL (3.9-5); BUN/Creatinine Ratio 12; Blood Urea Nitrogen 15 mg/dL (9-20); Calcium 9.2 mg/dL (8.4-10.2); Hemolysis Index 5
--- NOTE | 2019-02-21 19:26 | XRay Report ---
CHEST 1 VIEW 02/21/2019 6:55 PM INDICATION / CLINICAL INFORMATION: ETT placement. COMPARISON: Chest x-ray 12/26/2018 FINDINGS: SUPPORT DEVICES: New ET tube has tip 7 cm above sade. New left internal jugular central line has ti p in SVC. Right internal jugular dialysis catheter again projects over SVC. Leadless cardiac pacemake r is again noted. HEART / MEDIASTINUM: Cardiac silhouette remains mildly enlarged. LUNGS / PLEURA: Mild pulmonary edema. No pneumothorax. ADDITIONAL FINDINGS: Vascular stents project over medial aspect of left arm and axilla, unchanged IMPRESSION: 1. Mild CHF. Signer Name: Carlos Hanley MD Signed: 02/21/2019 7:22 PM Workstation Name: [id number]
[2019-02-21 19:57] LABS: Chol/HDL Ratio 2.05 %; HDL Cholesterol 40 mg/dL (40-59); LDL Cholesterol,Direct 36 mg/dL (50-130)
--- NOTE | 2019-02-21 20:58 | Cat Scan Report ---
CT head/brain wo con INDICATION: ams. TECHNIQUE: All CT scans at this location are performed using the following dose modulation technique: Automated exposure control. COMPARISON: None available. FINDINGS: There is no hemorrhage, abnormal extra-axial fluid collection, midline shift or mass effect. Bilatera l frontal lobe encephalomalacia is unchanged. There remains ex vacuo dilatation of the right lateral ventricle with moderate periventricular white matter microangiopathy, unchanged. 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 Visualized paranasal sinuses and mastoid air cells are well-aerated. IMPRESSION: 1. No intracranial bleed or large acute territorial infarction. 2. Old areas of CVA/encephalomalacia within both frontal lobes and left cerebellum with periventricul ar white matter microangiopathy, unchanged. Signer Name: Carlos Hanley MD Signed: 02/21/2019 8:54 PM Workstation Name: [id number]
[2019-02-21] MEDS: fentaNYL DRIP Premix 2,000 MCG/100 ML BAG IV SCH (21:04)
[2019-02-21] MEDS ORDERED: SUCCINYLCHOLINE CHLORIDE 200 MG/10 ML INJ MDV ONE (21:32)
[2019-02-21] MEDS ORDERED: ETOMIDATE 20 MG/10 ML INJ IV ONE (21:32)
[2019-02-21] MEDS ORDERED: POTASSIUM CHLORIDE 10 MEQ 10 MEQ/100 ML BAG IV ONE ×2 (22:18→23:12)
[2019-02-21] MEDS ORDERED: DEXTROSE 50% IN WATER (25GM) 50 ML SYRINGE IV PRN (22:19)
[2019-02-21] MEDS ORDERED: ONDANSETRON 4 MG/2 ML INJ IV PRN (22:19)
--- NOTE | 2019-02-21 22:24 | History and Physical Report ---
History of Present Illness Date of examination: 02/21/19 History of present illness: 63-year-old man with a history of end-stage renal disease on dialysis Saturday, , Saturday, diabetes, anemia, schizophrenia, hypertension, afib, blind in the left eye, hyperparathyroidism, sacral ulcers, osteomyelitis was brought to the hospital for respiratory distress. Patient became hypotensive after intubation in the emergency room, to which she responded with IV fluid. Review of systems unobtainable PAST MEDICAL HISTORY:end-stage renal disease on dialysis Saturday, , Saturday, diabetes, anemia, schizophrenia, legally blind, hypertension, afib, sacral ulcers PAST SURGICAL HISTORY: AV fistula, appendectomy, hemorrhoidectomy SOCIAL HISTORY: Denies alcohol, tobacco, drugs FAMILY HISTORY: Hypertension Medications and Allergies Allergies Allergy/AdvReac Type Severity Reaction Status Date / Time haloperidol [From Haldol] AdvReac Unknown Verified 03/13/18 12:10 haloperidol lactate AdvReac Unknown Verified 03/13/18 12:10 [From Haldol] Home Medications Medication Instructions Recorded Confirmed Last Taken Type risperiDONE [RisperDAL] 1 mg PO QAM 03/13/18 02/21/19 Unknown History Sertraline [Zoloft] 100 mg PO QDAY 08/26/18 02/21/19 Unknown History Polyethylene Glycol 3350 [Miralax 17 gm PO QDAY #30 packet 11/05/18 02/21/19 Un known Rx 3350] Aspirin EC 81 mg PO DAILY #30 11/19/18 02/21/19 Unknown Rx Docusate Sodium [Colace CAP] 100 mg PO BID #60 11/19/18 02/21/19 Unknown Rx Folic Acid [Folvite] 1 mg PO DAILY #30 tab 11/19/18 02/21/19 Unknown Rx Famotidine [Pepcid] 20 mg PO DAILY tablet 12/08/18 02/21/19 Unknown Rx Gabapentin [Neurontin] 100 mg PO QHS capsule 12/08/18 02/21/19 Unknown Rx Metoprolol [Lopressor TAB] 50 mg PO BID 30 Days tablet 12/08/18 02/21/19 Unknown Rx Sevelamer Carbonate [Renvela] 800 mg PO TIDWM tablet 12/08/18 02/21/19 Unknown Rx hydrALAZINE [Apresoline TAB] 100 mg PO Q8HR #120 tablet 12/08/18 02/21/19 Unknown Rx Acetaminophen [Acetaminophen TAB] 650 mg PO Q12H PRN 12/15/18 02/21/19 Unknown History Glucagon,Human Recombinant 1 mg IJ Q15MIN PRN 12/15/18 02/21/19 Unknown History [Glucagon Emergency Kit] Insulin Aspart [NovoLOG 100 See Protocol SQ QWEEK 12/15/18 02/21/19 Unknown History UNITS/ML VIAL] Active Meds: Active Medications Acetaminophen (Tylenol) 650 mg PO Q4H PRN PRN Reason: Pain MILD(1-3)/Fever >100.5/HILL Dextrose (D50w (25gm) Syringe) 50 ml IV PRN PRN PRN Reason: Hypoglycemia Dextrose (D50w (25gm) Syringe) 50 ml IV PRN PRN PRN Reason: Hypoglycemia Enoxaparin Sodium (Lovenox) 30 mg SUB-Q QDAY SANCHEZ Fentanyl (Sublimaze) 50 mcg IV Q10MIN PRN PRN Reason: ANALGESIA Hydrophilic Ointment (Vaseline Lip Therapy) 1 applic TP Q2HR PRN PRN Reason: Dry Lips Cefepime HCl (Maxipime/Ns 2 Gm/100 Ml) 2 gm in 100 mls @ 200 mls/hr IV NOW SANCHEZ; Protocol Last Admin: 02/21/19 18:30 Dose: 200 mls/hr Documented by: Fentanyl Citrate (Fentanyl Drip Premix) 2,000 mcg in 100 mls @ 6.237 mls/hr IV TITR SANCHEZ; Protocol Last Admin: 02/21/19 21:04 Dose: 1 mcg/kg/hr, 6.237 mls/hr Documented by: Midazolam HCl 100 mg/ Sodium (Chloride) 100 mls @ 2 mls/hr IV TITR SANCHEZ; Protocol Potassium Chloride (Kcl 10meq/100ml) 10 meq in 100 mls @ 100 mls/hr IV ONCE ONE Stop: 02/21/19 23:17 Midazolam HCl (Versed) 2 mg IV Q10MIN PRN PRN Reason: Sedation Multi-Ingred Cream/Lotion/Oil/Oint (Artificial Tears Ophth Oint) 1 applic OU Q4HR PRN PRN Reason: Dry Eye(s) Ondansetron HCl (Zofran) 4 mg IV Q8H PRN PRN Reason: Nausea And Vomiting Sodium Chloride (Sodium Chloride Flush Syringe 10 Ml) 10 ml IV BID SANCHEZ Sodium Chloride (Sodium Chloride Flush Syringe 10 Ml) 10 ml IV PRN PRN PRN Reason: LINE FLUSH Exam - Physical Exam Narrative exam: General Apperance: The patient sitting in bed no acute distress, intubated HEENT: Normocephalic, atraumatic. Pupils equally round and reactive to light, unable to do extraocular movement intact, and no sclericterus or JVD or thyromegaly or nodule. Neck supple, no carotid bruit, mucous membranes moist, no exudate or erythema Heart: S1-S2, regular is rhythm Lungs: Clear to auscultation anteriorly, bilaterally, breathing comfortable Abdomen: +peg, Positive bowel sounds, soft, nontender, nondistended, no organomegaly Extremities: No edema cyanosis clubbing Skin: sacral and lower extrtemity ulcers, no rash, nodule, warm and dry Neuro:CN 2 -12 intact, motry/sensory intact, speech is fluent - Constitutional Vitals: Temp Pulse Resp BP Pulse Ox 97.2 F L 69 24 129/77 100 02/21/19 18:16 02/21/19 19:54 02/21/19 21:45 02/21/19 19:54 02/21/19 21:45 Results - Labs CBC & Chem 7: 02/22/19 03:42 02/22/19 03:42 Labs: Abnormal lab results 02/21/19 02/21/19 02/21/19 Range/Units 18:30 18:30 18:30 RBC 3.26 L (3.65-5.03) M/mm3 Hgb 8.8 L (11.8-15.2) gm/dl Hct 29.0 L (35.5-45.6) % MCH 27 L (28-32) pg MCHC 30 L (32-34) % RDW 19.1 H (13.2-15.2) % Lymph % (Auto) 6.1 L (13.4-35.0) % Lymph # 0.4 L (1.2-5.4) K/mm3 Seg Neutrophils % 86.2 H (40.0-70.0) % POC ABG pCO2 (35-45) POC ABG pO2 (80-105) Sodium 133 L (137-145) mmol/L Potassium 3.3 L (3.6-5.0) mmol/L Chloride 93.1 L (98-107) mmol/L Carbon Dioxide 33 H (22-30) mmol/L Glucose 161 H (75-100) mg/dL Alkaline Phosphatase 136 H (35-129) units/L Total Creatine Kinase 37 L (55-170) units/L Troponin T 0.192 H* (0.00-0.029) ng/mL Albumin 2.4 L (3.9-5) g/dL LDL Cholesterol Direct 36 L (50-130) mg/dL Salicylates (2.8-20.0) mg/dL Acetaminophen (10.0-30.0) ug/mL 02/21/19 02/21/19 02/21/19 Range/Units 18:42 20:04 20:04 RBC (3.65-5.03) M/mm3 Hgb (11.8-15.2) gm/dl Hct (35.5-45.6) % MCH (28-32) pg MCHC (32-34) % RDW (13.2-15.2) % Lymph % (Auto) (13.4-35.0) % Lymph # (1.2-5.4) K/mm3 Seg Neutrophils % (40.0-70.0) % POC ABG pCO2 56.7 H (35-45) POC ABG pO2 291 H (80-105) Sodium (137-145) mmol/L Potassium (3.6-5.0) mmol/L Chloride (98-107) mmol/L Carbon Dioxide (22-30) mmol/L Glucose (75-100) mg/dL Alkaline Phosphatase (35-129) units/L Total Creatine Kinase (55-170) units/L Troponin T (0.00-0.029) ng/mL Albumin (3.9-5) g/dL LDL Cholesterol Direct (50-130) mg/dL Salicylates < 0.3 L (2.8-20.0) mg/dL Acetaminophen < 5.0 L (10.0-30.0) ug/mL - Imaging and Cardiology EKG: image reviewed Chest x-ray: report reviewed CT Scan - head: report reviewed Assessment and Plan Assessment Acute respiratory failure Abnormal cardiac enzymes end-stage renal disease diabetes schizophrenia legally blind hypertension afib sacral/osteomylitis and LE ulcers Plan Admit to medicine Continue sedation, consult critical care Check cardiac enzymes, d-dimer, echo Consult cardiology, renal Check fingersticks, hold sliding scale for now DVT prophylaxis
[2019-02-21 23:22] LABS: Creatine Kinase MB 3.7 ng/mL (0.0-4.0)
[2019-02-22 04:04] LABS: Basophils # (Auto) 0.1 K/mm3 (0.0-0.1); Basophils % (Auto) 0.8 % (0.0-1.8); Eosinophils # (Auto) 0.2 K/mm3 (0.0-0.4); Eosinophils % (Auto) 1.7 % (0.0-4.3); Hematocrit 27.6 % (35.5-45.6); Hemoglobin 8.8 gm/dl (11.8-15.2); Lymphocytes # (Auto) 0.7 K/mm3 (1.2-5.4); Lymphocytes % (Auto) 7.4 % (13.4-35.0); Mean Corpuscular HGB Conc 32 % (32-34); Mean Corpuscular Volume 86 fl (84-94); Monocytes # (Auto) 0.5 K/mm3 (0.0-0.8); Monocytes % (Auto) 5.4 % (0.0-7.3); Platelet Count 316 K/mm3 (140-440); Red Cell Distribution Width 18.9 % (13.2-15.2)
[2019-02-22 04:30] LABS: Calcium 8.9 mg/dL (8.4-10.2)
[2019-02-22 04:31] LABS: Creatine Kinase MB 3.7 ng/mL (0.0-4.0)
[2019-02-22] MEDS ORDERED: POTASSIUM CHLORIDE 20 MEQ 20 MEQ/100 ML BAG IV ONE (04:39)
--- NOTE | 2019-02-22 07:13 | XRay Report ---
CHEST 1 VIEW INDICATION / CLINICAL INFORMATION: follow up respiratory failure. COMPARISON: 02/21/2019 FINDINGS: SUPPORT DEVICES: Lines and tubes are unchanged. HEART / MEDIASTINUM: Slightly enlarged but stable LUNGS / PLEURA: Interstitial edema remains. There is increasing density in the right upper lobe which may be volume loss. No significant effusions. No pneumothorax. ADDITIONAL FINDINGS: No significant additional findings. IMPRESSION: 1. Slight worsening in the right upper lobe. Signer Name: Andrez Ray MD Signed: 02/22/2019 7:08 AM Workstation Name: [id number]
--- NOTE | 2019-02-22 09:28 | Cat Scan Report ---
CTA CHEST WITH IV CONTRAST INDICATION / CLINICAL INFORMATION: elevated d-orlando, acute resp failure. TECHNIQUE: Axial CT images were obtained through the chest after injection of 60 mL Omnipaque 350 IV contrast. 3 plane MIP and/or 3D reconstructions were produced. All CT scans at this location are performed using CT dose reduction for ALARA by means of automated exposure control. COMPARISON: 02/22/2019 chest radiograph FINDINGS: Positions of the endotracheal, esophagogastric, and gastrostomy tubes are satisfactory. Left axillary arterial and venous stent grafts are noted. PULMONARY ARTERIES: No pulmonary emboli. THORACIC AORTA: No significant abnormality. HEART: Mild cardiomegaly. No pericardial effusion. CORONARY ARTERIES: Multivessel CAD. PLEURA: Moderate right and small left pleural effusions are present. No pneumothorax. LYMPH NODES: Few scattered, mildly prominent upper mediastinal nodes. No frankly enlarged or morpholo gically abnormal or necrotic lymph nodes identified. LUNGS: Compressive atelectasis of large portions of both lower lobes. A considerable portion of the r ight upper lobe also is atelectatic. Throughout the better aerated portions of the lung, there is dif fuse groundglass opacity with more confluent/consolidative opacity seen at the apices. ADDITIONAL FINDINGS: Diffuse body wall edema. UPPER ABDOMEN: Small to moderate volume of ascites in the upper abdomen. SKELETAL STRUCTURES: No significant osseous abnormality. IMPRESSION: 1. No CT evidence for pulmonary embolism. 2. Moderate right and small left pleural effusions. 3. Large portions of the right upper lobe and both lower lobes have collapsed. 4. Remaining, better aerated portions of the lungs demonstrate diffuse groundglass opacity, which may be due to pulmonary edema with or without infectious or inflammatory process. Signer Name: Thaddeus Leo MD Signed: 02/22/2019 9:24 AM Workstation Name: [id number]
--- NOTE | 2019-02-22 09:39 | Consultation ---
History of Present Illness Consult date: 02/22/19 Consult reason: shortness of breath History of present illness: 63-year-old man with a history of end-stage renal disease on dialysis Saturday, , Saturday, diabetes, anemia, schizophrenia, hypertension, afib, blind in the left eye, hyperparathyroidism, sacral ulcers, osteomyelitis was brought to the hospital for respiratory distress. history was unobtainable as the patient has been intubated. PAST MEDICAL HISTORY: end-stage renal disease on dialysis Saturday, , Saturday, diabetes, anemia, schizophrenia, legally blind, hypertension, afib, sacral ulcers PAST SURGICAL HISTORY: AV fistula, appendectomy, hemorrhoidectomy SOCIAL HISTORY: Denies alcohol, tobacco, drugs FAMILY HISTORY: Hypertension Past History Past Medical History: atrial fib, anemia, diabetes, hypertension Past Surgical History: appendectomy Social history: no significant social history Medications and Allergies Allergies Allergy/AdvReac Type Severity Reaction Status Date / Time haloperidol [From Haldol] AdvReac Unknown Verified 03/13/18 12:10 haloperidol lactate AdvReac Unknown Verified 03/13/18 12:10 [From Haldol] Home Medications Medication Instructions Recorded Confirmed Last Taken Type risperiDONE [RisperDAL] 1 mg PO QAM 03/13/18 02/21/19 Unknown History Sertraline [Zoloft] 100 mg PO QDAY 08/26/18 02/21/19 Unknown History Polyethylene Glycol 3350 [Miralax 17 gm PO QDAY #30 packet 11/05/18 02/21/19 Unknown Rx 3350] Aspirin EC 81 mg PO DAILY #30 11/19/18 02/21/19 Unknown Rx Docusate Sodium [Colace CAP] 100 mg PO BID #60 11/19/18 02/21/19 Unknown Rx Folic Acid [Folvite] 1 mg PO DAILY #30 tab 11/19/18 02/21/19 Unknown Rx Famotidine [Pepcid] 20 mg PO DAILY tablet 12/08/18 02/21/19 Unknown Rx Gabapentin [Neurontin] 100 mg PO QHS capsule 12/08/18 02/21/19 Unknown Rx Metoprolol [Lopressor TAB] 50 mg PO BID 30 Days tablet 12/08/18 02/21/19 Unknown Rx Sevelamer Carbonate [Renvela] 800 mg PO TIDWM tablet 12/08/18 02/21/19 Unknown Rx hydrALAZINE [Apresoline TAB] 100 mg PO Q8HR #120 tablet 12/08/18 02/21/19 Unknown Rx Acetaminophen [Acetaminophen TAB] 650 mg PO Q12H PRN 12/15/18 02/21/19 Unknown History Glucagon,Human Recombinant 1 mg IJ Q15MIN PRN 12/15/18 02/21/19 Unknown History [Glucagon Emergency Kit] Insulin Aspart [NovoLOG 100 See Protocol SQ QWEEK 12/15/18 02/21/19 Unknown History UNITS/ML VIAL] Active Meds: Active Medications Acetaminophen (Tylenol) 650 mg PO Q4H PRN PRN Reason: Pain MILD(1-3)/Fever >100.5/HILL Dextrose (D50w (25gm) Syringe) 50 ml IV PRN PRN PRN Reason: Hypoglycemia Enoxaparin Sodium (Lovenox) 40 mg SUB-Q QDAY@1000 SANCHEZ Fentanyl (Sublimaze) 50 mcg IV Q10MIN PRN PRN Reason: ANALGESIA Last Admin: 02/21/19 20:55 Dose: 50 mcg Documented by: Hydrophilic Ointment (Vaseline Lip Therapy) 1 applic TP Q2HR PRN PRN Reason: Dry Lips Fentanyl Citrate (Fentanyl Drip Premix) 2,000 mcg in 100 mls @ 6.237 mls/hr IV TITR SANCHEZ; Protocol Last Admin: 02/21/19 21:04 Dose: 1 mcg/kg/hr, 6.237 mls/hr Documented by: Midazolam HCl 100 mg/ Sodium (Chloride) 100 mls @ 2 mls/hr IV TITR SANCHEZ; Protocol Midazolam HCl (Versed) 2 mg IV Q10MIN PRN PRN Reason: Sedation Multi-Ingred Cream/Lotion/Oil/Oint (Artificial Tears Ophth Oint) 1 applic OU Q4HR PRN PRN Reason: Dry Eye(s) Ondansetron HCl (Zofran) 4 mg IV Q8H PRN PRN Reason: Nausea And Vomiting Sodium Chloride (Sodium Chloride Flush Syringe 10 Ml) 10 ml IV BID SANCHEZ Sodium Chloride (Sodium Chloride Flush Syringe 10 Ml) 10 ml IV PRN PRN PRN Reason: LINE FLUSH Review of Systems ROS unobtainable: due to endotracheal tube Physical Examination Vital Signs Temp Pulse Resp BP Pulse Ox 97.2 F L 107 H 10 L 65/43 100 02/21/19 18:16 02/21/19 18:16 02/21/19 18:16 02/21/19 18:16 02/21/19 18:16 General appearance: no acute distress HEENT: Positive: PERRL, EOMI Neck: Positive: neck supple Cardiac: Positive: Reg Rate and Rhythm, S1/S2 Lungs: Positive: Ventilated Respirations Neuro: Positive: Other (sedated) Abdomen: Positive: Unremarkable Extremities: Absent: edema Results 02/22/19 03:42 02/22/19 03:42 Cardiac Enzymes 02/21/19 02/21/19 02/22/19 Range/Units 18:30 22:35 03:42 AST 17 (5-40) units/L CK-MB (CK-2) 3.7 3.7 (0.0-4.0) ng/mL Coagulation 02/21/19 Range/Units 18:30 APTT 33.7 (24.2-36.6) Sec. Lipids 02/21/19 Range/Units 18:30 Triglycerides 51 (2-149) mg/dL Cholesterol 82 (50-199) mg/dL HDL Cholesterol 40 (40-59) mg/dL Cholesterol/HDL Ratio 2.05 % CBC 02/21/19 02/22/19 Range/Units 18:30 03:42 WBC 7.3 9.0 (4.5-11.0) K/mm3 RBC 3.26 L 3.20 L (3.65-5.03) M/mm3 Hgb 8.8 L 8.8 L (11.8-15.2) gm/dl Hct 29.0 L 27.6 L (35.5-45.6) % Plt Count 365 316 (140-440) K/mm3 Lymph # 0.4 L 0.7 L (1.2-5.4) K/mm3 [place] # 0.4 0.5 (0.0-0.8) K/mm3 Eos # 0.1 0.2 (0.0-0.4) K/mm3 Baso # 0.0 0.1 (0.0-0.1) K/mm3 Comprehensive Metabolic Panel 02/21/19 02/22/19 Range/Units 18:30 03:42 Sodium 133 L 134 L (137-145) mmol/L Potassium 3.3 L 2.6 L* D (3.6-5.0) mmol/L Chloride 93.1 L 98.9 (98-107) mmol/L Carbon Dioxide 33 H 26 D (22-30) mmol/L BUN 15 18 (9-20) mg/dL Creatinine 1.3 1.5 (0.8-1.5) mg/dL Glucose 161 H 76 (75-100) mg/dL Calcium 9.2 8.9 (8.4-10.2) mg/dL AST 17 (5-40) units/L ALT 7 (7-56) units/L Alkaline Phosphatase 136 H (35-129) units/L Total Protein 6.7 (6.3-8.2) g/dL Albumin 2.4 L (3.9-5) g/dL Assessment and Plan Assessment 1. elevated troponin - plateaued and not in the expected pattern of ACS. Secondary to renal failure 2. Acute respiratory failure - intubated. management per pulmonology 3 .end-stage renal disease on HD- management per nephrology 4. diabetes - management per primary 5. schizophrenia - management per primary 6. legally blind 7. hypertension - well controlled. hyptension resolved. Restart metoprolol when blood pressure is able to tolerate 8. afib - outpatient rate control strategy with metoprolol. Restart when patient's blood pressure is able to tolerate. Patient is not on anticoagulation outpatient. Re-evaluate for anticoagulation when acute issues resolved. Check echo. 9. sacral/osteomylitis and LE ulcers - management per primary 10. hypokalemia - replete with dialysis per nephrology 11. Consider for ischemic evaluation when acute issues resolved.
[2019-02-22] MEDS ORDERED: ENOXAPARIN 40 MG/0.4 ML INJ SUB-Q SCH (10:00)
[2019-02-22] MEDS ORDERED: ENOXAPARIN 30 MG/0.3 ML INJ SUB-Q SCH (10:00)
[2019-02-22] MEDS ORDERED: ENOXAPARIN 40 MG/0.4 ML INJ SUB-Q ONE (10:24)
--- NOTE | 2019-02-22 11:10 | Consultation ---
History of Present Illness - Reason for Consult Consult date: 02/22/19 end stage renal disease Requesting physician: MAGALIE EASLEY - History of Present Illness 63-year-old man with a history of end-stage renal disease on dialysis Saturday, , Saturday, diabetes, anemia, schizophrenia, hypertension, afib, blind in the right eye, hyperparathyroidism, sacral ulcers, osteomyelitis was brought to the hospital for respiratory distress. Patient became hypotensive after intubation in the emergency room, to which she responded with IV fluid. Review of systems unobtainable. Review of dialysis record indicate that he had his 4 hour dialysis treatment yesterday. He undergoes dialysis on TTS schedule at [facility]. 1.6 L of fluid was removed yesterday. He is currently in the emergency room. On a ventilator. On 35% FiO2. Oxygen saturation is 100% Past History Past Medical History: atrial fib, anemia, diabetes, hypertension Past Surgical History: appendectomy Social history: no significant social history Medications and Allergies Allergies Allergy/AdvReac Type Severity Reaction Status Date / Time haloperidol [From Haldol] AdvReac Unknown Verified 03/13/18 12:10 haloperidol lactate AdvReac Unknown Verified 03/13/18 12:10 [From Haldol] Home Medications Medication Instructions Recorded Confirmed Last Taken Type risperiDONE [RisperDAL] 1 mg PO QAM 03/13/18 02/21/19 Unknown History Sertraline [Zoloft] 100 mg PO QDAY 08/26/18 02/21/19 Unknown History Polyethylene Glycol 3350 [Miralax 17 gm PO QDAY #30 packet 11/05/18 02/21/19 Unknown Rx 3350] Aspirin EC 81 mg PO DAILY #30 11/19/18 02/21/19 Unknown Rx Docusate Sodium [Colace CAP] 100 mg PO BID #60 11/19/18 02/21/19 Unknown Rx Folic Acid [Folvite] 1 mg PO DAILY #30 tab 11/19/18 02/21/19 Unknown Rx Famotidine [Pepcid] 20 mg PO DAILY tablet 12/08/18 02/21/19 Unknown Rx Gabapentin [Neurontin] 100 mg PO QHS capsule 12/08/18 02/21/19 Unknown Rx Metoprolol [Lopressor TAB] 50 mg PO BID 30 Days tablet 12/08/18 02/21/19 Unknown Rx Sevelamer Carbonate [Renvela] 800 mg PO TIDWM tablet 12/08/18 02/21/19 Unknown Rx hydrALAZINE [Apresoline TAB] 100 mg PO Q8HR #120 tablet 12/08/18 02/21/19 Unknown Rx Acetaminophen [Acetaminophen TAB] 650 mg PO Q12H PRN 12/15/18 02/21/19 Unknown History Glucagon,Human Recombinant 1 mg IJ Q15MIN PRN 12/15/18 02/21/19 Unknown History [Glucagon Emergency Kit] Insulin Aspart [NovoLOG 100 See Protocol SQ QWEEK 12/15/18 02/21/19 Unknown History UNITS/ML VIAL] Active Meds: Active Medications Acetaminophen (Tylenol) 650 mg PO Q4H PRN PRN Reason: Pain MILD(1-3)/Fever >100.5/HILL Dextrose (D50w (25gm) Syringe) 50 ml IV PRN PRN PRN Reason: Hypoglycemia Enoxaparin Sodium (Lovenox) 40 mg SUB-Q QDAY@1000 SANCHEZ Last Admin: 02/22/19 10:24 Dose: 40 mg Documented by: Fentanyl (Sublimaze) 50 mcg IV Q10MIN PRN PRN Reason: ANALGESIA Last Admin: 02/21/19 20:55 Dose: 50 mcg Documented by: Hydrophilic Ointment (Vaseline Lip Therapy) 1 applic TP Q2HR PRN PRN Reason: Dry Lips Fentanyl Citrate (Fentanyl Drip Premix) 2,000 mcg in 100 mls @ 6.237 mls/hr IV TITR SANCHEZ; Protocol Last Admin: 02/21/19 21:04 Dose: 1 mcg/kg/hr, 6.237 mls/hr Documented by: Midazolam HCl 100 mg/ Sodium (Chloride) 100 mls @ 2 mls/hr IV TITR SANCHEZ; Protocol Midazolam HCl (Versed) 2 mg IV Q10MIN PRN PRN Reason: Sedation Multi-Ingred Cream/Lotion/Oil/Oint (Artificial Tears Ophth Oint) 1 applic OU Q4HR PRN PRN Reason: Dry Eye(s) Ondansetron HCl (Zofran) 4 mg IV Q8H PRN PRN Reason: Nausea And Vomiting Sodium Chloride (Sodium Chloride Flush Syringe 10 Ml) 10 ml IV BID SANCHEZ Last Admin: 02/22/19 10:20 Dose: 10 ml Documented by: Sodium Chloride (Sodium Chloride Flush Syringe 10 Ml) 10 ml IV PRN PRN PRN Reason: LINE FLUSH Review of Systems ROS unobtainable: due to endotracheal tube Exam - Vital Signs Vital signs: Vital Signs Temp Pulse Resp BP Pulse Ox 97.2 F L 107 H 10 L 65/43 100 02/21/19 18:16 02/21/19 18:16 02/21/19 18:16 02/21/19 18:16 02/21/19 18:16 - General Appearance General appearance: well-developed, well-nourished, appears stated age, intubated EENT: other (blind right eye.) Neck: Present: neck supple, trachea midline, Other (right IJ PermCath in place). Absent: JVD/HJR, Masses Respiratory: Decreased Breath Sounds (at the bases) Heart: irregularly irregular Gastrointestinal: Present: normoactive bowel sounds, other (colostomy bag and PEG tube in place) Integumentary: other (no edema. AV graft in his left upper arm. Good bruit and thrill.) Results - Lab Results 02/22/19 03:42 02/22/19 03:42 Most recent lab results Calcium 8.9 mg/dL (8.4-10.2) 02/22/19 03:42 Magnesium 2.20 mg/dL (1.7-2.3) 02/21/19 18:30 Assessment and Plan Impression * End-stage renal disease on maintenance hemodialysis * Respiratory failure secondary to pneumonia +/- fluid overload * Hypokalemia * Sepsis * Schizophrenia * Chronic atrial fibrillation * Dementia * Sacral decubitus * Pleural effusion Recommendations * Schedule patient for hemodialysis for tomorrow * Replace potassium * IV antibiotic as per primary team * Adjust diet and meds for ESRD state * He also does have AV graft in his left upper arm. Has a good bruit and thrill. We'll get vascular surgery input * No IV, BP of any puncture in his left upper arm * Procrit with dialysis * Avoid nephrotoxins * Monitor fluid status and electrolytes closely * Thank you very much for the consultation. Shall follow along with you
[2019-02-22] MEDS ORDERED: SODIUM CHLORIDE 0.9% 100 ML IV PRN (11:20)
[2019-02-22] MEDS ORDERED: fentaNYL DRIP Premix 2,000 MCG/100 ML BAG IV ONE (11:38)
[2019-02-22] MEDS: fentaNYL DRIP Premix 2,000 MCG/100 ML BAG IV SCH (11:46)
--- NOTE | 2019-02-22 14:00 | Progress Note ---
Assessment and Plan Assessment and plan: Acute respiratory failure Intubated, on Fentanyl Pulmom consulted ESRD on hemodialysis nephrology following Diabetes mellitus type 2 Fingerstick Q4h Schizophrenia Legally blind supportive care hypertension Monitor BP Atrial fibrillation cardiology following History of sacral osteomylitis and LE ulcers Completed Antibiotics Place on contact isolation Full code status History Interval history: Still intubated Hospitalist Physical - Physical exam Narrative exam: Gen: Not in acute distress, lying in bed, intubated HEENT: Normocephalic, atraumatic Neck: supple, no JVD Heart: S1 and S2 reg, no murmurs, rubs or gallop Lungs: Clear, no crackles, no rhonchi Abd: soft, non tender, non distended, normal BS, Ext: No edema, no clubbing, no cyanosis Neuro: Intubated - Constitutional Vitals: Temp Pulse Resp BP Pulse Ox 96.0 F L 77 24 115/52 100 02/22/19 06:03 02/22/19 13:11 02/22/19 12:15 02/22/19 13:11 02/22/19 13:11 General appearance: Present: no acute distress Results - Labs CBC & Chem 7: 02/22/19 03:42 02/23/19 05:00 Labs: Laboratory Last Values WBC 9.0 K/mm3 (4.5-11.0) 02/22/19 03:42 RBC 3.20 M/mm3 (3.65-5.03) L 02/22/19 03:42 Hgb 8.8 gm/dl (11.8-15.2) L 02/22/19 03:42 Hct 27.6 % (35.5-45.6) L 02/22/19 03:42 MCV 86 fl (84-94) 02/22/19 03:42 MCH 28 pg (28-32) 02/22/19 03:42 MCHC 32 % (32-34) 02/22/19 03:42 RDW 18.9 % (13.2-15.2) H 02/22/19 03:42 Plt Count 316 K/mm3 (140-440) 02/22/19 03:42 Lymph % (Auto) 7.4 % (13.4-35.0) L 02/22/19 03:42 [place] % (Auto) 5.4 % (0.0-7.3) 02/22/19 03:42 Eos % (Auto) 1.7 % (0.0-4.3) 02/22/19 03:42 Baso % (Auto) 0.8 % (0.0-1.8) 02/22/19 03:42 Lymph # 0.7 K/mm3 (1.2-5.4) L 02/22/19 03:42 [place] # 0.5 K/mm3 (0.0-0.8) 02/22/19 03:42 Eos # 0.2 K/mm3 (0.0-0.4) 02/22/19 03:42 Baso # 0.1 K/mm3 (0.0-0.1) 02/22/19 03:42 Seg Neutrophils % 84.7 % (40.0-70.0) H 02/22/19 03:42 Seg Neutrophils # 7.6 K/mm3 (1.8-7.7) 02/22/19 03:42 APTT 33.7 Sec. (24.2-36.6) 02/21/19 18:30 2987.82 ng/mlDDU (0-234) H 02/22/19 05:54 POC ABG pH 7.451 (7.35-7.45) H 02/22/19 09:04 POC ABG pCO2 38.4 (35-45) 02/22/19 09:04 POC ABG pO2 93 (80-105) 02/22/19 09:04 POC ABG HCO3 26.7 (22-26 mml/L) 02/22/19 09:04 POC ABG Total CO2 28 (23-27mmol/L) 02/22/19 09:04 POC ABG O2 Sat 98 02/22/19 09:04 POC ABG Base Excess 3 ((-2) - (+3)mmol/L) 02/22/19 09:04 40 % 02/22/19 09:04 Sodium 134 mmol/L (137-145) L 02/22/19 03:42 Potassium 3.1 mmol/L (3.6-5.0) L 02/22/19 10:36 Chloride 98.9 mmol/L (98-107) 02/22/19 03:42 Carbon Dioxide 26 mmol/L (22-30) D 02/22/19 03:42 12 mmol/L 02/22/19 03:42 BUN 18 mg/dL (9-20) 02/22/19 03:42 1.5 mg/dL (0.8-1.5) 02/22/19 03:42 Estimated GFR 57 ml/min 02/22/19 03:42 12 % 02/22/19 03:42 Glucose 76 mg/dL (75-100) 02/22/19 03:42 POC Glucose 98 (70-105) 02/22/19 08:47 Lactic Acid 1.00 mmol/L (0.7-2.0) 02/21/19 20:58 Calcium 8.9 mg/dL (8.4-10.2) 02/22/19 03:42 Magnesium 2.20 mg/dL (1.7-2.3) 02/21/19 18:30 0.20 mg/dL (0.1-1.2) 02/21/19 18:30 AST 17 units/L (5-40) 02/21/19 18:30 ALT 7 units/L (7-56) 02/21/19 18:30 136 units/L (35-129) H 02/21/19 18:30 28.0 umol/L (25-60) 02/21/19 20:04 64 units/L (55-170) 02/22/19 03:42 CK-MB (CK-2) 3.7 ng/mL (0.0-4.0) 02/22/19 03:42 CK-MB (CK-2) Rel Index 5.7 (0-4) H 02/22/19 03:42 0.193 ng/mL (0.00-0.029) H* 02/22/19 03:42 6.7 g/dL (6.3-8.2) 02/21/19 18:30 2.4 g/dL (3.9-5) L 02/21/19 18:30 0.6 % 02/21/19 18:30 Triglycerides 51 mg/dL (2-149) 02/21/19 18:30 Cholesterol 82 mg/dL (50-199) 02/21/19 18:30 36 mg/dL (50-130) L 02/21/19 18:30 40 mg/dL (40-59) 02/21/19 18:30 2.05 % 02/21/19 18:30 TSH 2.760 mlU/mL (0.270-4.200) 02/21/19 20:04 Salicylates < 0.3 mg/dL (2.8-20.0) L 02/21/19 20:04 Acetaminophen < 5.0 ug/mL (10.0-30.0) L 02/21/19 20:04 Active Medications - Current Medications Current Medications: Generic Name Dose Route Start Last Admin Trade Name Freq PRN Reason Stop Dose Admin Acetaminophen 650 mg 02/21/19 22:19 Tylenol PO Q4H PRN Pain MILD(1-3)/Fever >100.5/HILL Dextrose 50 ml 02/21/19 22:22 D50w (25gm) Syringe IV PRN PRN Hypoglycemia Enoxaparin Sodium 40 mg 02/22/19 10:00 02/22/19 10:24 Lovenox SUB-Q 40 mg QDAY@1000 SANCHEZ Administration Fentanyl 50 mcg 02/21/19 18:24 02/21/19 20:55 Sublimaze IV 50 mcg Q10MIN PRN Administration ANALGESIA Hydrophilic Ointment 1 applic 02/21/19 18:24 Vaseline Lip Therapy TP Q2HR PRN Dry Lips Fentanyl Citrate 2,000 mcg in 100 mls @ 6.237 mls/hr 02/21/19 19:00 02/22/19 11:46 Fentanyl Drip Premix IV 1 mcg/kg/hr TITR SANCHEZ 6.237 mls/hr Administration Protocol 1 MCG/KG/HR Midazolam HCl 100 mg/ Sodium 100 mls @ 2 mls/hr 02/21/19 19:00 Chloride IV TITR SANCHEZ Protocol 2 MG/HR Sodium Chloride 100 mls @ 999 mls/hr 02/22/19 11:20 Nacl 0.9% IV UMA PRN Hypotension Midazolam HCl 2 mg 02/21/19 18:24 Versed IV Q10MIN PRN Sedation Multi-Ingred Cream/Lotion/Oil/Oint 1 applic 02/21/19 18:24 Artificial Tears Ophth Oint OU Q4HR PRN Dry Eye(s) Ondansetron HCl 4 mg 02/21/19 22:19 Zofran IV Q8H PRN Nausea And Vomiting Sodium Chloride 10 ml 02/22/19 10:00 02/22/19 10:20 Sodium Chloride Flush Syringe 10 Ml IV 10 ml BID SANCHEZ Administration Sodium Chloride 10 ml 02/21/19 22:19 Sodium Chloride Flush Syringe 10 Ml IV PRN PRN LINE FLUSH Nutrition/Malnutrition Assess - Dietary Evaluation Nutrition/Malnutrition Findings: Nutrition Notes Start: 02/22/19 12:51 Freq: Status: Active Protocol: Document 02/22/19 12:53 RM (Rec: 02/22/19 13:13 RM [id number]) Nutrition Notes Need for Assessment generated from: MD Order Initial or Follow up Assessment Current Diagnosis Diabetes,Hypertension Other Pertinent Diagnosis Sacral PU, ESRD on HD (T/Thurs /Sat), Schizophrenia, Blind in L eye Current Diet NPO Labs/Tests K 3.1 Pertinent Medications Reviewed Height 5 ft 10 in Weight 100 kg [place] Body Weight (kg) 75.45 BMI 31.6 Subjective/Other Information Consulted for evaluate nutritional intake. Pt on vent. Burn Absent Trauma Absent #2 Nutrition Diagnosis Increased nutrient needs ( specify in comment below) Comments: glutamine, arginine Etiology wound healing As Evidenced by Signs and Symptoms sacral PU #1 Nutrition Diagnosis Inadequate oral intake Etiology on vent As Evidenced by Signs and Symptoms NPO status Is patient on ventilator? Yes Is Patient Ambulatory and/or Out of Bed No REE-([facility]-confined to bed) 2160.444 Kcal/Kg value to use for calculation 18 Approximate Energy Requirements Using 1800 kcal/Kg Calculation Used for Recommendations Kcal/kg Additional Notes Protein Needs: 151g (2g/kg IBW ) Fluid Needs: 1 ml/kcal Nutrition Intervention Change Diet Order: TF consult Nutrition Support: Vital 1.2 at 65 ml/hr Water flush of 100 mls q 4 hrs Kcal 1,872 Protein (gm) 117 Fluid (mL) 1,265 Add Supplement/Snack (indicate name/kcal Abhilash BID /protein ) Provides kCal: 190 Provides Protein (gm) 5 Goal #1 TF consult Anticipated Discharge Needs: Unable to determine at this time Follow-Up By: 02/24/19 Additional Comments Follow for TF consult - Attestation Statement I have reviewed and agreed w/ Malnutrition eval & tx plan: Yes
--- NOTE | 2019-02-22 15:12 | Consultation ---
History of Present Illness Consult date: 02/22/19 Requesting physician: JACQUIE GARCIA Reason for consult: other History of present illness: 63 y/o male, multiple medical admissions in the past who was brought in by EMS for altered mental state difficulty in breathing. Per ED physician, patient was not able to protect his airway so was intubated. No pre-intubation ABG done. Post ABG mixed metabolic and respiratory acidosis with hypoxemia. Patient was subsequently placed on Fentanyl drip and a Versed drip was ordered as well. Per the chart, patient became hypotensive post intubation and was started on IVF's and given broad spectrum abx therapy. Remainder is unable to be obtained as patient is intubated and sedated. Past History Past Medical History: atrial fib, anemia, diabetes, hypertension Past Surgical History: appendectomy Social history: no significant social history Medications and Allergies Allergies Allergy/AdvReac Type Severity Reaction Status Date / Time haloperidol [From Haldol] AdvReac Unknown Verified 03/13/18 12:10 haloperidol lactate AdvReac Unknown Verified 03/13/18 12:10 [From Haldol] Home Medications Medication Instructions Recorded Confirmed Last Taken Type risperiDONE [RisperDAL] 1 mg PO QAM 03/13/18 02/21/19 Unknown History Sertraline [Zoloft] 100 mg PO QDAY 08/26/18 02/21/19 Unknown History Polyethylene Glycol 3350 [Miralax 17 gm PO QDAY #30 packet 11/05/18 02/21/19 Unknown Rx 3350] Aspirin EC 81 mg PO DAILY #30 11/19/18 02/21/19 Unknown Rx Docusate Sodium [Colace CAP] 100 mg PO BID #60 11/19/18 02/21/19 Unknown Rx Folic Acid [Folvite] 1 mg PO DAILY #30 tab 11/19/18 02/21/19 Unknown Rx Famotidine [Pepcid] 20 mg PO DAILY tablet 12/08/18 02/21/19 Unknown Rx Gabapentin [Neurontin] 100 mg PO QHS capsule 12/08/18 02/21/19 Unknown Rx Metoprolol [Lopressor TAB] 50 mg PO BID 30 Days tablet 12/08/18 02/21/19 Unknown Rx Sevelamer Carbonate [Renvela] 800 mg PO TIDWM tablet 12/08/18 02/21/19 Unknown Rx hydrALAZINE [Apresoline TAB] 100 mg PO Q8HR #120 tablet 12/08/18 02/21/19 Unknown Rx Acetaminophen [Acetaminophen TAB] 650 mg PO Q12H PRN 12/15/18 02/21/19 Unknown History Glucagon,Human Recombinant 1 mg IJ Q15MIN PRN 12/15/18 02/21/19 Unknown History [Glucagon Emergency Kit] Insulin Aspart [NovoLOG 100 See Protocol SQ QWEEK 12/15/18 02/21/19 Unknown History UNITS/ML VIAL] Active Meds: Active Medications Acetaminophen (Tylenol) 650 mg PO Q4H PRN PRN Reason: Pain MILD(1-3)/Fever >100.5/HILL Dextrose (D50w (25gm) Syringe) 50 ml IV PRN PRN PRN Reason: Hypoglycemia Enoxaparin Sodium (Lovenox) 40 mg SUB-Q QDAY@1000 [facility] Last Admin: 02/22/19 10:24 Dose: 40 mg Documented by: Hydrophilic Ointment (Vaseline Lip Therapy) 1 applic TP Q2HR PRN PRN Reason: Dry Lips Sodium Chloride (Nacl 0.9%) 100 mls @ 999 mls/hr IV UMA PRN PRN Reason: Hypotension Multi-Ingred Cream/Lotion/Oil/Oint (Artificial Tears Ophth Oint) 1 applic OU Q4HR PRN PRN Reason: Dry Eye(s) Ondansetron HCl (Zofran) 4 mg IV Q8H PRN PRN Reason: Nausea And Vomiting Sodium Chloride (Sodium Chloride Flush Syringe 10 Ml) 10 ml IV BID [facility] Last Admin: 02/22/19 10:20 Dose: 10 ml Documented by: Sodium Chloride (Sodium Chloride Flush Syringe 10 Ml) 10 ml IV PRN PRN PRN Reason: LINE FLUSH Review of Systems ROS unobtainable: due to endotracheal tube, due to mental status Physical Examination Vital signs: Vital Signs Temp Pulse Resp BP Pulse Ox 97.2 F L 107 H 10 L 65/43 100 02/21/19 18:16 02/21/19 18:16 02/21/19 18:16 02/21/19 18:16 02/21/19 18:16 General appearance: no acute distress, appears uncomfortable, other (follows commands on Fentanyl) Eyes: icteric (on left, right eye is closed) Effort: normal Ascultation: Bilateral: diminished breath sounds Percussion: Bilateral: not dull Cardiovascular: regular rate and rhythm Gastrointestinal: soft, non-tender Results - Laboratory Findings CBC and BMP: 02/22/19 03:42 02/22/19 10:36 ABG POC ABG pH 7.451 (7.35-7.45) H 02/22/19 09:04 POC ABG pCO2 38.4 (35-45) 02/22/19 09:04 POC ABG pO2 93 (80-105) 02/22/19 09:04 POC ABG HCO3 26.7 (22-26 mml/L) 02/22/19 09:04 POC ABG Total CO2 28 (23-27mmol/L) 02/22/19 09:04 POC ABG O2 Sat 98 02/22/19 09:04 PT/INR, D-dimer 2987.82 ng/mlDDU (0-234) H 02/22/19 05:54 Abnormal lab findings: Abnormal Labs 02/21/19 02/21/19 02/21/19 18:30 18:30 18:30 RBC 3.26 L Hgb 8.8 L Hct 29.0 L MCH 27 L MCHC 30 L RDW 19.1 H Lymph % (Auto) 6.1 L Lymph # 0.4 L Seg Neutrophils % 86.2 H D-Dimer POC ABG pH POC ABG pCO2 POC ABG pO2 Sodium 133 L Potassium 3.3 L Chloride 93.1 L Carbon Dioxide 33 H Glucose 161 H Alkaline Phosphatase 136 H Total Creatine Kinase 37 L CK-MB (CK-2) Rel Index Troponin T 0.192 H* Albumin 2.4 L LDL Cholesterol Direct 36 L Salicylates Acetaminophen 02/21/19 02/21/19 02/21/19 18:42 20:04 20:04 RBC Hgb Hct MCH MCHC RDW Lymph % (Auto) Lymph # Seg Neutrophils % D-Dimer POC ABG pH POC ABG pCO2 56.7 H POC ABG pO2 291 H Sodium Potassium Chloride Carbon Dioxide Glucose Alkaline Phosphatase Total Creatine Kinase CK-MB (CK-2) Rel Index Troponin T Albumin LDL Cholesterol Direct Salicylates < 0.3 L Acetaminophen < 5.0 L 02/21/19 02/22/19 02/22/19 22:35 03:42 03:42 RBC 3.20 L Hgb 8.8 L Hct 27.6 L MCH MCHC RDW 18.9 H Lymph % (Auto) 7.4 L Lymph # 0.7 L Seg Neutrophils % 84.7 H D-Dimer POC ABG pH POC ABG pCO2 POC ABG pO2 Sodium 134 L Potassium 2.6 L* D Chloride Carbon Dioxide Glucose Alkaline Phosphatase Total Creatine Kinase CK-MB (CK-2) Rel Index 5.2 H Troponin T 0.202 H* Albumin LDL Cholesterol Direct Salicylates Acetaminophen 02/22/19 02/22/19 02/22/19 03:42 05:54 09:04 RBC Hgb Hct MCH MCHC RDW Lymph % (Auto) Lymph # Seg Neutrophils % D-Dimer 2987.82 H POC ABG pH 7.451 H POC ABG pCO2 POC ABG pO2 Sodium Potassium Chloride Carbon Dioxide Glucose Alkaline Phosphatase Total Creatine Kinase CK-MB (CK-2) Rel Index 5.7 H Troponin T 0.193 H* Albumin LDL Cholesterol Direct Salicylates Acetaminophen 02/22/19 10:36 RBC Hgb Hct MCH MCHC RDW Lymph % (Auto) Lymph # Seg Neutrophils % D-Dimer POC ABG pH POC ABG pCO2 POC ABG pO2 Sodium Potassium 3.1 L Chloride Carbon Dioxide Glucose Alkaline Phosphatase Total Creatine Kinase CK-MB (CK-2) Rel Index Troponin T Albumin LDL Cholesterol Direct Salicylates Acetaminophen Assessment and Plan 63 y/o male with multiple medical issues admitted with altered mental status, acute respiratory failure requiring mechanical ventilation 1. Stopped all sedation 2. Asked RT to place on PSV trial 3. If adequate gas, will extubate 4. HD per renal CCT 31 minutes.
[2019-02-22] MEDS ORDERED: fentaNYL 100 MCG/2 ML INJ IV ONE (17:14)
[2019-02-22] MEDS ORDERED: fentaNYL 100 MCG/2 ML INJ ONE (19:40)
[2019-02-22] MEDS ORDERED: POTASSIUM CHLORIDE 10 MEQ 10 MEQ/100 ML BAG IV ONE (22:13)
[2019-02-22] MEDS: POTASSIUM CHLORIDE 10 MEQ 10 MEQ/100 ML BAG IV SCH ×2 (22:15→23:08)
[2019-02-23] MEDS: DEXTROSE 50% IN WATER (25GM) 50 ML SYRINGE IV PRN ×3 (00:14→14:51)
[2019-02-23] MEDS: INSULIN REGULAR, HUMAN 100 UNITS/1 ML SUB-Q SCH ×5 (02:11→22:54)
--- NOTE | 2019-02-23 02:53 | XRay Report ---
CHEST 1 VIEW INDICATION / CLINICAL INFORMATION: follow up respiratory failure. COMPARISON: 02/22/2019 FINDINGS: SUPPORT DEVICES: Support devices are unchanged. HEART / MEDIASTINUM: No significant abnormality. LUNGS / PLEURA: Bilateral interstitial lung disease is unchanged. The right upper lobe volume loss sh ows improvement with no significant alveolar consolidation seen. No pneumothorax. ADDITIONAL FINDINGS: The borders again seen over the left chest with vascular stent in the left axill a. IMPRESSION: 1. No substantial change Signer Name: Andrez Ray MD Signed: 02/23/2019 2:49 AM Workstation Name: [id number]
[2019-02-23 05:34] LABS: Calcium 9.5 mg/dL (8.4-10.2)
--- NOTE | 2019-02-23 09:30 | Event Note ---
Date: 02/23/19 Patient previously managed by [facility]. We will defer to them for continued care.
--- NOTE | 2019-02-23 09:46 | Progress Note ---
Subjective Interval history: Patient was seen today for follow-up on multiple renal related issues Patient was admitted and intubated during this admission Events of this hospitalization were noted Interdisciplinary notes were also reviewed Vitals intake output medications were reviewed Past medical history: Reviewed Family, social history: Reviewed Allergies: Reviewed Physical examination General: No acute distress Vitals: Reviewed HEENT: Oral mucosa moist no icterus Neck: Supple no thyromegaly nodular mass or JVD Chest: Clear to auscultation anteriorly Heart: Regular rate and rhythm S1-S2 heard no S3-S4 Abdomen: Soft nontender no suprapubic masses no organomegaly Extremity: Dry skin less than 1+ edema Psych: No evidence of any agitation and aggression noted Derm: No petechial rash Assessment and plan: End stage renal disease: Patient will continue with hemodialysis on, Saturday and Saturday schedule, continue with hemodialysis as tolerated do not draw blood pressure below 100 systolic, discussed with dialysis nurse Current dialysis access is a central venous catheter patient had limited vascular access Have chronic swelling of upper extremity which is unchanged Anemia and end-stage renal disease: To monitor , will give weekly erythropoietin 40,000 Secondary hyperparathyroidism: Periodically check vitamin D and phosphorus level along with PTH Respiratory failure, was intubated upon arrival Hypertension and volume: To monitor and follow low systolic blood pressure under 150, Nutrition: High-protein diet due to dialysis status, as tolerated Chest x-ray unremarkable, blood culture has been negative Comorbidities including blindness, stroke, congestive heart failure, ICD, loop recorder B disease, decubitus ulcer at his post colostomy In my opinion patient appears to be hospice appropriate if family agrees, Prognosis: Very poor, mortality risk is very high We'll continue to follow and make recommendation from renal standpoint Objective - Vital Signs Vital signs: Vital Signs - 12hr 02/22/19 02/22/19 02/22/19 22:00 22:02 23:04 Temperature Pulse Rate 69 69 93 H Pulse Rate [ From Monitor] Respiratory 20 20 12 Rate Blood Pressure 122/71 122/71 O2 Sat by Pulse 100 100 Oximetry 02/22/19 02/23/19 02/23/19 23:16 00:00 01:00 Temperature 97.4 F L Pulse Rate 69 71 71 Pulse Rate [ From Monitor] Respiratory 19 16 Rate Blood Pressure 122/71 116/63 106/57 O2 Sat by Pulse 100 100 100 Oximetry 08/12/0702/23/19 02/23/19 02:01 03:00 04:00 Temperature 96.2 F L Pulse Rate 93 H 81 94 H Pulse Rate [ From Monitor] Respiratory 17 20 20 Rate Blood Pressure 143/87 120/71 129/78 O2 Sat by Pulse 100 100 100 Oximetry 02/23/19 02/23/19 02/23/19 04:44 05:00 06:00 Temperature Pulse Rate 71 96 H 97 H Pulse Rate [ From Monitor] Respiratory 19 13 Rate Blood Pressure 120/87 131/70 121/83 O2 Sat by Pulse 100 100 100 Oximetry 02/23/19 02/23/19 02/23/19 07:00 07:26 08:00 Temperature Pulse Rate 96 H 97 H 96 H Pulse Rate [ 96 H From Monitor] Respiratory 16 22 Rate Blood Pressure 137/64 134/59 112/66 O2 Sat by Pulse 100 100 100 Oximetry - Lab 02/22/19 03:42 02/23/19 05:00 Most recent lab results Calcium 9.5 mg/dL (8.4-10.2) 02/23/19 05:00 Magnesium 2.20 mg/dL (1.7-2.3) 02/21/19 18:30 Medications & Allergies - Medications Allergies/Adverse Reactions: Allergies haloperidol [From Haldol] Adverse Reaction (Verified 03/13/18 12:10) Unknown haloperidol lactate [From Haldol] Adverse Reaction (Verified 03/13/18 12:10) Unknown Home Medications: Home Medications Medication Instructions Recorded Confirmed Last Taken Type risperiDONE [RisperDAL] 1 mg PO QAM 03/13/18 02/21/19 Unknown History Sertraline [Zoloft] 100 mg PO QDAY 08/26/18 02/21/19 Unknown History Polyethylene Glycol 3350 [Miralax 17 gm PO QDAY #30 packet 11/05/18 02/21/19 Unknown Rx 3350] Aspirin EC 81 mg PO DAILY #30 11/19/18 02/21/19 Unknown Rx Docusate Sodium [Colace CAP] 100 mg PO BID #60 11/19/18 02/21/19 Unknown Rx Folic Acid [Folvite] 1 mg PO DAILY #30 tab 11/19/18 02/21/19 Unknown Rx Famotidine [Pepcid] 20 mg PO DAILY tablet 12/08/18 02/21/19 Unknown Rx Gabapentin [Neurontin] 100 mg PO QHS capsule 12/08/18 02/21/19 Unknown Rx Metoprolol [Lopressor TAB] 50 mg PO BID 30 Days tablet 12/08/18 02/21/19 Unknown Rx Sevelamer Carbonate [Renvela] 800 mg PO TIDWM tablet 12/08/18 02/21/19 Unknown Rx hydrALAZINE [Apresoline TAB] 100 mg PO Q8HR #120 tablet 12/08/18 02/21/19 Unknown Rx Acetaminophen [Acetaminophen TAB] 650 mg PO Q12H PRN 12/15/18 02/21/19 Unknown History Glucagon,Human Recombinant 1 mg IJ Q15MIN PRN 12/15/18 02/21/19 Unknown History [Glucagon Emergency Kit] Insulin Aspart [NovoLOG 100 See Protocol SQ QWEEK 12/15/18 02/21/19 Unknown History UNITS/ML VIAL] Active Medications: Generic Name Dose Route Start Last Admin Trade Name Freq PRN Reason Stop Dose Admin Acetaminophen 650 mg 02/21/19 22:19 Tylenol PO Q4H PRN Pain MILD(1-3)/Fever >100.5/HILL Dextrose 50 ml 02/21/19 22:22 02/23/19 06:38 D50w (25gm) Syringe IV 50 ml PRN PRN Administration Hypoglycemia Enoxaparin Sodium 30 mg 02/23/19 10:00 Lovenox SUB-Q QDAY [facility] Famotidine 20 mg 02/23/19 10:00 Pepcid PO DAILY [facility] Hydrophilic Ointment 1 applic 02/21/19 18:24 Vaseline Lip Therapy TP Q2HR PRN Dry Lips Sodium Chloride 100 mls @ 999 mls/hr 02/22/19 11:20 Nacl 0.9% IV UMA PRN Hypotension Insulin Human Regular 0 units 02/23/19 02:00 02/23/19 07:56 Humulin R SUB-Q Not Given Q4HR [facility] Protocol Lorazepam 1 mg 02/22/19 20:08 Ativan IV Q1H PRN Agitation Multi-Ingred Cream/Lotion/Oil/Oint 1 applic 02/21/19 18:24 Artificial Tears Ophth Oint OU Q4HR PRN Dry Eye(s) Ondansetron HCl 4 mg 02/21/19 22:19 Zofran IV Q8H PRN Nausea And Vomiting Sodium Chloride 10 ml 02/22/19 10:00 02/22/19 21:57 Sodium Chloride Flush Syringe 10 Ml IV 10 ml BID SANCHEZ Administration Sodium Chloride 10 ml 02/21/19 22:19 Sodium Chloride Flush Syringe 10 Ml IV PRN PRN LINE FLUSH
[2019-02-23] MEDS: ENOXAPARIN 30 MG/0.3 ML INJ SUB-Q SCH (09:56)
[2019-02-23] MEDS: FAMOTIDINE 20 MG TAB PO SCH (09:57)
[2019-02-23] MEDS ORDERED: EPOETIN ALFA 10,000 UNIT/1 ML INJ SUB-Q ONE (10:00)
--- NOTE | 2019-02-23 10:39 | Progress Note ---
Assessment and Plan Pt is a 63-year-old male custodial resident with past medical history of CMP, end-stage renal disease/dialysis, hypertension, hyperlipidemia, permanent atrial fibrillation, diabetes, anemia, questionable history of stroke, unstageable sacral ulcer with osteomyelitis, status post debridement, an implantable loop recorder, schizophrenia. Patient brought to the hospital by EMS on 02/21/2019 for altered mental status and respiratory distress and was subsequently intubated. Cardiology was consulted yesterday for elevated Malika. Dr. Majano with [facility] completed cardiology consultation. Cardiology care transferred to our group today as pt is known to us. Acute respiratory failure Intubated. Chest CTA 02/22/2019 showed mod right and small left pleural effusions, large portions of RUL and both lower lobes collapsed. CXR this AM showed RUL volume loss improvement, no pneumothorax. Pulmonary following. Altered mental status Head CT with no acute findings. NSTEMI type II Chronically elevated Malika. Cont to trend Malika and obtain serial ECGs. Permanent atrial fibrillation and atrial flutter Currently with HR 80s - 100s. Resume home lopressor when BPs permit. No long-term AC in setting of dementia, anemia, thrombocytopenia, and multiple co-morbidities. Loop recorder in situ Cardiomyopathy - EF 35-40% No current clinical evidence of acutely decompensated HF. Echo done 12/16/2018 showed EF 35-40%, mild LVH, RV systolic function mod reduced, RA mildly dilated, pulm HTN with RVSP 53mmHg, large pleural effusion, markedly increased RA pressure. Resume home lopressor when BPs permit. Consider addition of ACEI/ARB when BPs permit and if okay per nephrology. ESRD on HD Nephrology following. Hypokalemia Replete PRN and f/u BMP and Mg in AM. Serum Mg 2.2 on 02/21/2019. Anemia Chronic. Monitor CBC. Elevated DDimer Chest CTA negative for PE HTN HLP DM ? H/o CVA / PEG tube in situ Unstageable sacral ulcer with osteomyelitis, status post debridement Legally blind Schizophrenia The patient has been seen in conjunction with Dr. Woodall who agrees with the assessment and plan of care. Subjective Date of service: 02/23/19 Principal diagnosis: respiratory failure Interval history: pt resting in bed, remains intubated. in AFib/AFlutter on telemetry with HR 80s - 100s. no family at bedside. Objective Last Vital Signs Temp 97.7 F 02/23/19 10:11 Pulse 109 H 02/23/19 10:30 Resp 19 02/23/19 10:11 BP 112/46 02/23/19 10:30 Pulse Ox 100 02/23/19 10:11 - Physical Examination General: Other (intubated) HEENT: Positive: PERRL, EOMI Neck: Positive: neck supple, trachea midline, Other (right IJ PermCath in place). Negative: JVD/HJR, Masses Cardiac: Positive: irregularly irregular, S1/S2 Lungs: Positive: Decreased Breath Sounds, Ventilated Respirations Neuro: Positive: Other (intubated) Abdomen: Positive: Unremarkable Extremities: Absent: edema - Labs and Meds Comprehensive Metabolic Panel 02/22/19 02/23/19 Range/Units 10:36 05:00 Sodium 135 L (137-145) mmol/L Potassium 3.1 L 3.1 L (3.6-5.0) mmol/L Chloride 98.2 (98-107) mmol/L Carbon Dioxide 26 (22-30) mmol/L BUN 21 H (9-20) mg/dL Creatinine 2.0 H (0.8-1.5) mg/dL Glucose 57 L (75-100) mg/dL Calcium 9.5 (8.4-10.2) mg/dL - Imaging and Cardiology EKG: report reviewed, image reviewed Echo: report reviewed (Echo done 12/16/2018 showed EF 35-40%, mild LVH, RV systolic function mod reduced, RA mildly dilated, pulm HTN with RVSP 53mmHg, large pleural ) - Telemetry EKG Rhythm: Atrial Flutter
[2019-02-23] MEDS ORDERED: SODIUM CHLORIDE 0.9% 1000 ML 2,000 ML ONE (10:45)
[2019-02-23] MEDS: LORazepam 2 MG/ML VIAL IV PRN ×2 (11:11→22:53)
[2019-02-23] MEDS ORDERED: SODIUM CHLORIDE 0.9% 100 ML IV PRN (11:15)
[2019-02-23] MEDS ORDERED: EPOETIN ALFA 20,000 UNIT/1 ML INJ SUB-Q ONE (11:30)
[2019-02-23] MEDS ORDERED: POTASSIUM CHLORIDE 10 MEQ 10 MEQ/100 ML BAG IV SCH (12:00)
[2019-02-23] MEDS: POTASSIUM CHLORIDE 20 MEQ 20 MEQ/100 ML BAG IV SCH ×2 (13:16→14:50)
[2019-02-23 14:06] LABS: Hepatitis B Surface Antigen Non-Reactive (Negative); Hepatitis C Virus Antibody Non-Reactive (NonReactive)
--- NOTE | 2019-02-23 14:09 | Consultation ---
History of Present Illness - Reason for Consult Consult date: 02/23/19 - History of Present Illness He is 63 year Black male admitted through the Emergency department for altered mental status and respiratory distress. He is currently intubated with oral ETT on ventilator. He has history of ESRD on hemodialysis currently getting hemodialysis with right IJ permcath. He has a left arm AVG created by Dr. Chaparro many years ago. It is currently not being used for hemodialysis. A vascular surgery consult has been requested to assess use of his left arm AV graft. He is known to our practice from evaluation in August earlier this year. He had developed an ulceration to the graft and concern of infection raised. A permacath was placed and the graft was not used to allow for the wound to heal. He was evaluated in our office in November for evaluation to use the access since wounds had healed. The access was functioning well and all wounds had healed. Permission to use the access was given. It is unclear if the access was ever used after this office visit. Past History Past Medical History: atrial fib, anemia, diabetes, dialysis, ESRD, hypertension Past Surgical History: appendectomy, Other (left upper extremity AV fistula later converted to AVG by Dr. Chaparro, Permacath placement, Tunneled PICC line) Social history: no significant social history, other (Personal halfway patient) Medications and Allergies Allergies Allergy/AdvReac Type Severity Reaction Status Date / Time haloperidol [From Haldol] AdvReac Unknown Verified 03/13/18 12:10 haloperidol lactate AdvReac Unknown Verified 03/13/18 12:10 [From Haldol] Home Medications Medication Instructions Recorded Confirmed Last Taken Type risperiDONE [RisperDAL] 1 mg PO QAM 03/13/18 02/21/19 Unknown History Sertraline [Zoloft] 100 mg PO QDAY 08/26/18 02/21/19 Unknown History Polyethylene Glycol 3350 [Miralax 17 gm PO QDAY #30 packet 11/05/18 02/21/19 Unknown Rx 3350] Aspirin EC 81 mg PO DAILY #30 11/19/18 02/21/19 Unknown Rx Docusate Sodium [Colace CAP] 100 mg PO BID #60 11/19/18 02/21/19 Unknown Rx Folic Acid [Folvite] 1 mg PO DAILY #30 tab 11/19/18 02/21/19 Unknown Rx Famotidine [Pepcid] 20 mg PO DAILY tablet 12/08/18 02/21/19 Unknown Rx Gabapentin [Neurontin] 100 mg PO QHS capsule 12/08/18 02/21/19 Unknown Rx Metoprolol [Lopressor TAB] 50 mg PO BID 30 Days tablet 12/08/18 02/21/19 Unknown Rx Sevelamer Carbonate [Renvela] 800 mg PO TIDWM tablet 12/08/18 02/21/19 Unknown Rx hydrALAZINE [Apresoline TAB] 100 mg PO Q8HR #120 tablet 12/08/18 02/21/19 Unknown Rx Acetaminophen [Acetaminophen TAB] 650 mg PO Q12H PRN 12/15/18 02/21/19 Unknown History Glucagon,Human Recombinant 1 mg IJ Q15MIN PRN 12/15/18 02/21/19 Unknown History [Glucagon Emergency Kit] Insulin Aspart [NovoLOG 100 See Protocol SQ QWEEK 12/15/18 02/21/19 Unknown History UNITS/ML VIAL] Active Meds: Active Medications Acetaminophen (Tylenol) 650 mg PO Q4H PRN PRN Reason: Pain MILD(1-3)/Fever >100.5/HILL Dextrose (D50w (25gm) Syringe) 50 ml IV PRN PRN PRN Reason: Hypoglycemia Last Admin: 02/23/19 06:38 Dose: 50 ml Documented by: Enoxaparin Sodium (Lovenox) 30 mg SUB-Q QDAY [facility] Last Admin: 02/23/19 09:56 Dose: 30 mg Documented by: Famotidine (Pepcid) 20 mg PO DAILY [facility] Last Admin: 02/23/19 09:57 Dose: 20 mg Documented by: Hydrophilic Ointment (Vaseline Lip Therapy) 1 applic TP Q2HR PRN PRN Reason: Dry Lips Sodium Chloride (Nacl 0.9%) 100 mls @ 999 mls/hr IV UMA PRN PRN Reason: Hypotension Insulin Human Regular (Humulin R) 0 units SUB-Q Q4HR [facility]; Protocol Last Admin: 02/23/19 11:26 Dose: Not Given Documented by: Lorazepam (Ativan) 1 mg IV Q1H PRN PRN Reason: Agitation Last Admin: 02/23/19 11:11 Dose: 1 mg Documented by: Multi-Ingred Cream/Lotion/Oil/Oint (Artificial Tears Ophth Oint) 1 applic OU Q4HR PRN PRN Reason: Dry Eye(s) Ondansetron HCl (Zofran) 4 mg IV Q8H PRN PRN Reason: Nausea And Vomiting Sodium Chloride (Sodium Chloride Flush Syringe 10 Ml) 10 ml IV BID SANCHEZ Last Admin: 02/22/19 21:57 Dose: 10 ml Documented by: Sodium Chloride (Sodium Chloride Flush Syringe 10 Ml) 10 ml IV PRN PRN PRN Reason: LINE FLUSH Review of Systems ROS unobtainable: due to endotracheal tube, due to mental status Exam - Constitutional Vitals: Temp Pulse Resp BP Pulse Ox 98.8 F 116 H 18 109/59 100 02/23/19 13:24 02/23/19 13:24 02/23/19 13:24 02/23/19 13:24 02/23/19 13:24 General appearance: Present: no acute distress, other (orally intubated on ventilator) - Neck Neck: Present: other (right IJ permacath present Left tunneled PICC line pre sent) - Respiratory Respiratory effort: other (orally intubated on ventilator) - Extremities Extremities: abnormal (unresponsive upper and lower extremity edema present left upper arm AVG present increased pulse proximal, thrill present distal decreased) - Integumentary Integumentary: Present: warm, dry - Psychiatric Psychiatric: other (unresponsive) - Neurologic Neurologic: other (unresponsive orally intubated ) Results - Labs CBC & Chem 7: 02/22/19 03:42 02/23/19 05:00 Labs: Abnormal lab results 02/22/19 02/23/19 02/23/19 Range/Units 23:56 00:52 05:00 Sodium 135 L (137-145) mmol/L Potassium 3.1 L (3.6-5.0) mmol/L BUN 21 H (9-20) mg/dL Creatinine 2.0 H (0.8-1.5) mg/dL Glucose 57 L (75-100) mg/dL POC Glucose 58 L 111 H (70-105) 02/23/19 Range/Units 06:35 Sodium (137-145) mmol/L Potassium (3.6-5.0) mmol/L BUN (9-20) mg/dL Creatinine (0.8-1.5) mg/dL Glucose (75-100) mg/dL POC Glucose 64 L (70-105) Assessment and Plan Altered Mental Status Respiratory Failure ESRD on hemodialysis He has left arm AVG initially created as a fistula and later converted to AVG by Dr. Chaparro. He had ulceration to the access August earlier this year concern for infection. A right IJ permacath was placed so the the left arm AVG could be rested to allow for wound healing. He was evaluated in our office in November to assess for restarting to use the graft. All wounds had healed and the access was functioning well. Permission was given to start using the AVG but it is unclear if the access was ever used after the office visit. The access has increased pulse proximal but thrill is present but decreased and no wounds are present to the access. May use the left arm AVG for hemodialysis. If should encounter problems or difficulties with the access should use his permacath. The access will more than likely require fistulogram and angioplasty to optimized function. This can be completed when he becomes more stable medically. Would not recommend removing permacath until his left arm AVG is used several times successfully for hemodialysis.
[2019-02-23] MEDS ORDERED: SIMPLE SYRUP 15 ML FEEDTUBE PRN ×2 (15:09)
[2019-02-23] MEDS ORDERED: SODIUM BICARBONATE 325 MG TAB FEEDTUBE PRN (15:09)
[2019-02-23] MEDS ORDERED: LIPASE 10,500/PROTEASE 25,000/AMYLASE 43,750 (UNITS) DR CAP FEEDTUBE PRN (15:09)
--- NOTE | 2019-02-23 16:00 | Progress Note ---
Assessment and Plan Assessment and plan: Patient is 63-year-old man with a history of end-stage renal disease on dialysis Saturday, , Saturday, diabetes, anemia, schizophrenia, hypertension, afib, blind in the left eye, hyperparathyroidism, sacral ulcers, osteomyelitis was brought to the hospital for respiratory distress. Patient became hypotensive after intubation in the emergency room. Still intubated, diagnosed with fluid overload,pleural effusion. Pulmonology, cardiology and Nephrology following. Acute respiratory failure Intubated, on Fentanyl Pulmom consulted Acute pulmonary edema, fluid overload on CXR Dialysis ESRD on hemodialysis nephrology following Bilateral pleural effusions permanent atrial fibrillation and flutter Not on anticoagulation because of anemia thrombocytopenia Diabetes mellitus type 2 Fingerstick Q4h NSTEMI type 2 Cardiology following Schizophrenia Legally blind supportive care hypertension Monitor BP Hypokalemia repeat in am Cardiomyiopathy EF 35-40% Pulmonary hypertension Dysphagia s/p PEG tube sacral decub ulcer Wound Nurse consulted History of sacral osteomyelitis and LE ulcers Completed Antibiotics Place on contact isolation for ESBL Klebsiella pneumonia on wound culture 01/02/19 Schizophrenia DVT prophylaxis Lovenox Full code status I History Interval history: Still intubated Hospitalist Physical - Physical exam Narrative exam: Gen: Not in acute distress, lying in bed, intubated HEENT: Normocephalic, atraumatic Neck: supple, no JVD Heart: S1 and S2 irreg, no murmurs, rubs or gallop Lungs: Bilateral crackles, no wheeze Abd: soft, non tender, non distended, normal BS, PRG tube Ext: No edema, no clubbing, no cyanosis, rulcer left 5th finger, dark area right heel Neuro: Intubated Sacral wound - Constitutional Vitals: Temp Pulse Resp BP Pulse Ox 98.8 F 116 H 18 109/59 100 02/23/19 13:24 02/23/19 15:00 02/23/19 13:24 02/23/19 15:00 02/23/19 15:00 General appearance: Present: no acute distress Results - Labs CBC & Chem 7: 02/22/19 03:42 02/23/19 05:00 Labs: Laboratory Last Values WBC 9.0 K/mm3 (4.5-11.0) 02/22/19 03:42 RBC 3.20 M/mm3 (3.65-5.03) L 02/22/19 03:42 Hgb 8.8 gm/dl (11.8-15.2) L 02/22/19 03:42 Hct 27.6 % (35.5-45.6) L 02/22/19 03:42 MCV 86 fl (84-94) 02/22/19 03:42 MCH 28 pg (28-32) 02/22/19 03:42 MCHC 32 % (32-34) 02/22/19 03:42 RDW 18.9 % (13.2-15.2) H 02/22/19 03:42 Plt Count 316 K/mm3 (140-440) 02/22/19 03:42 Lymph % (Auto) 7.4 % (13.4-35.0) L 02/22/19 03:42 [place] % (Auto) 5.4 % (0.0-7.3) 02/22/19 03:42 Eos % (Auto) 1.7 % (0.0-4.3) 02/22/19 03:42 Baso % (Auto) 0.8 % (0.0-1.8) 02/22/19 03:42 Lymph # 0.7 K/mm3 (1.2-5.4) L 02/22/19 03:42 [place] # 0.5 K/mm3 (0.0-0.8) 02/22/19 03:42 Eos # 0.2 K/mm3 (0.0-0.4) 02/22/19 03:42 Baso # 0.1 K/mm3 (0.0-0.1) 02/22/19 03:42 Seg Neutrophils % 84.7 % (40.0-70.0) H 02/22/19 03:42 Seg Neutrophils # 7.6 K/mm3 (1.8-7.7) 02/22/19 03:42 APTT 33.7 Sec. (24.2-36.6) 02/21/19 18:30 2987.82 ng/mlDDU (0-234) H 02/22/19 05:54 POC ABG pH 7.451 (7.35-7.45) H 02/22/19 09:04 POC ABG pCO2 38.4 (35-45) 02/22/19 09:04 POC ABG pO2 93 (80-105) 02/22/19 09:04 POC ABG HCO3 26.7 (22-26 mml/L) 02/22/19 09:04 POC ABG Total CO2 28 (23-27mmol/L) 02/22/19 09:04 POC ABG O2 Sat 98 02/22/19 09:04 POC ABG Base Excess 3 ((-2) - (+3)mmol/L) 02/22/19 09:04 40 % 02/22/19 09:04 Sodium 135 mmol/L (137-145) L 02/23/19 05:00 Potassium 3.1 mmol/L (3.6-5.0) L 02/23/19 05:00 Chloride 98.2 mmol/L (98-107) 02/23/19 05:00 Carbon Dioxide 26 mmol/L (22-30) 02/23/19 05:00 14 mmol/L 02/23/19 05:00 BUN 21 mg/dL (9-20) H 02/23/19 05:00 2.0 mg/dL (0.8-1.5) H 02/23/19 05:00 Estimated GFR 41 ml/min 02/23/19 05:00 11 % 02/23/19 05:00 Glucose 57 mg/dL (75-100) L 02/23/19 05:00 POC Glucose 104 (70-105) 02/23/19 15:45 Lactic Acid 1.00 mmol/L (0.7-2.0) 02/21/19 20:58 Calcium 9.5 mg/dL (8.4-10.2) 02/23/19 05:00 Magnesium 2.20 mg/dL (1.7-2.3) 02/21/19 18:30 0.20 mg/dL (0.1-1.2) 02/21/19 18:30 AST 17 units/L (5-40) 02/21/19 18:30 ALT 7 units/L (7-56) 02/21/19 18:30 136 units/L (35-129) H 02/21/19 18:30 28.0 umol/L (25-60) 02/21/19 20:04 64 units/L (55-170) 02/22/19 03:42 CK-MB (CK-2) 3.7 ng/mL (0.0-4.0) 02/22/19 03:42 CK-MB (CK-2) Rel Index 5.7 (0-4) H 02/22/19 03:42 0.193 ng/mL (0.00-0.029) H* 02/22/19 03:42 6.7 g/dL (6.3-8.2) 02/21/19 18:30 2.4 g/dL (3.9-5) L 02/21/19 18:30 0.6 % 02/21/19 18:30 Triglycerides 51 mg/dL (2-149) 02/21/19 18:30 Cholesterol 82 mg/dL (50-199) 02/21/19 18:30 36 mg/dL (50-130) L 02/21/19 18:30 40 mg/dL (40-59) 02/21/19 18:30 2.05 % 02/21/19 18:30 TSH 2.760 mlU/mL (0.270-4.200) 02/21/19 20:04 Salicylates < 0.3 mg/dL (2.8-20.0) L 02/21/19 20:04 Acetaminophen < 5.0 ug/mL (10.0-30.0) L 02/21/19 20:04 Hepatitis A IgM Ab Non-reactive (NonReactive) 02/23/19 11:20 Hep Bs Antigen Non-reactive (Negative) 02/23/19 11:20 Hep B Core IgM Ab Non-reactive (NonReactive) 02/23/19 11:20 Non-reactive (NonReactive) 02/23/19 11:20 Active Medications - Current Medications Current Medications: Generic Name Dose Route Start Last Admin Trade Name Freq PRN Reason Stop Dose Admin Acetaminophen 650 mg 02/21/19 22:19 Tylenol PO Q4H PRN Pain MILD(1-3)/Fever >100.5/HILL Lipase/Protease/Amylase 1 each 02/23/19 15:[address] 10,500 Unit FEEDTUBE PRN PRN For Clogged Feeding Tube Dextrose 50 ml 02/21/19 22:22 02/23/19 14:51 D50w (25gm) Syringe IV 50 ml PRN PRN Administration Hypoglycemia Enoxaparin Sodium 30 mg 02/23/19 10:00 02/23/19 09:56 Lovenox SUB-Q 30 mg QDAY SANCHEZ Administration Famotidine 20 mg 02/23/19 10:00 02/23/19 09:57 Pepcid PO 20 mg DAILY SANCHEZ Administration Hydrophilic Ointment 1 applic 02/21/19 18:24 Vaseline Lip Therapy TP Q2HR PRN Dry Lips Sodium Chloride 100 mls @ 999 mls/hr 02/23/19 11:15 Nacl 0.9% IV UMA PRN Hypotension Insulin Human Regular 0 units 02/23/19 02:00 02/23/19 11:26 Humulin R SUB-Q Not Given Q4HR [facility] Protocol Lorazepam 1 mg 02/22/19 20:08 02/23/19 11:11 Ativan IV 1 mg Q1H PRN Administration Agitation Multi-Ingred Cream/Lotion/Oil/Oint 1 applic 02/21/19 18:24 Artificial Tears Ophth Oint OU Q4HR PRN Dry Eye(s) Ondansetron HCl 4 mg 02/21/19 22:19 Zofran IV Q8H PRN Nausea And Vomiting Simple Syrup 15 ml 02/23/19 15:09 Simple Syrup FEEDTUBE PRN PRN Hypoglycemia Simple Syrup 30 ml 02/23/19 15:09 Simple Syrup FEEDTUBE PRN PRN Hypoglycemia Sodium Bicarbonate 325 mg 02/23/19 15:09 Sodium Bicarbonate FEEDTUBE PRN PRN For Clogged Feeding Tube Sodium Chloride 10 ml 02/22/19 10:00 02/23/19 14:51 Sodium Chloride Flush Syringe 10 Ml IV 10 ml BID SANCHEZ Administration Sodium Chloride 10 ml 02/21/19 22:19 Sodium Chloride Flush Syringe 10 Ml IV PRN PRN LINE FLUSH Nutrition/Malnutrition Assess - Dietary Evaluation Nutrition/Malnutrition Findings: Nutrition Notes Start: 02/22/19 12:51 Freq: Status: Active Protocol: Document 02/23/19 14:52 RM (Rec: 02/23/19 15:09 RM [id number]) Nutrition Notes Initial or Follow up Reassessment Current Diagnosis Diabetes,Hypertension Other Pertinent Diagnosis Sacral PU, ESRD on HD (T/Thurs /Sat), Schizophrenia, Blind in L eye Current Diet NPO Labs/Tests K 3.1 Pertinent Medications Reviewed Height 5 ft 10 in Weight 88.7 kg [place] Body Weight (kg) 75.45 BMI 28.0 Weight change and time frame Noted wt loss. Likely d/t fluid change from HD. Subjective/Other Information Consulted for TF recommendation. Pt on vent and receiving HD at time of visit. 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 Burn Absent Trauma Absent #2 Nutrition Diagnosis Increased nutrient needs ( specify in comment below) Diagnosis Progress(for reassessment Continues documentation) #1 Nutrition Diagnosis Inadequate oral intake Diagnosis Progress(for reassessment Continues documentation) Is patient on ventilator? Yes Is Patient Ambulatory and/or Out of Bed No REE-([place] Jeor-confined to bed) Calculation Used for Recommendations Kcal/kg Additional Notes Protein Needs: 106-177g (1.2- 2g/kg) Fluid Needs: 1 ml/kcal Nutrition Intervention Nutrition Support: Vital 1.2 at 70 ml/hr Water flush of 100 mls q 4 hrs Kcal 2,016 Protein (gm) 126 Fluid (mL) 1,362 Add Supplement/Snack (indicate name/kcal Abhilash BID /protein ) Provides kCal: 190 Provides Protein (gm) 5 Goal #1 TF tolerance Goal #2 Meet at least 80% of calorie and protein needs via TF Anticipated Discharge Needs: Unable to determine at this time Follow-Up By: 02/25/19 Additional Comments Follow for new TF
--- NOTE | 2019-02-23 17:24 | Progress Note ---
Assessment and Plan Imp: 1. Acute encephalopathy, probably metabolic or toxic 2. A/C systolic CHF 3. Dilated CMP 4. Pulm HTN 5. ESRD Rec: 1. CXR and CT chest suggest decompensation of CHF, with bilateral effusions/infiltrates; pneumonia is less likely in the setting of no fever and no elevated WBC; recommend removing volume with HD as tolerated and f/u CXR 2. Daily PSV 3. Avoid sedatives 4. DVT and GI PPx 5. TFs per PEG 6. Vascular eval. re: LUE AV graft 7. Further plans pending clinical course CCT 31 minutes No family present Subjective Date of service: 02/23/19 Principal diagnosis: respiratory failure Interval history: No events. Minimally arousable. On Ventilator. Unable to give history. Active Medications Acetaminophen (Tylenol) 650 mg PO Q4H PRN PRN Reason: Pain MILD(1-3)/Fever >100.5/HILL Lipase/Protease/Amylase (Pancreaze Dr 10,500 Unit) 1 each FEEDTUBE PRN PRN PRN Reason: For Clogged Feeding Tube Dextrose (D50w (25gm) Syringe) 50 ml IV PRN PRN PRN Reason: Hypoglycemia Last Admin: 02/23/19 14:51 Dose: 50 ml Documented by: Enoxaparin Sodium (Lovenox) 30 mg SUB-Q QDAY [facility] Last Admin: 02/23/19 09:56 Dose: 30 mg Documented by: Famotidine (Pepcid) 20 mg PO DAILY [facility] Last Admin: 02/23/19 09:57 Dose: 20 mg Documented by: Hydrophilic Ointment (Vaseline Lip Therapy) 1 applic TP Q2HR PRN PRN Reason: Dry Lips Sodium Chloride (Nacl 0.9%) 100 mls @ 999 mls/hr IV UMA PRN PRN Reason: Hypotension Insulin Human Regular (Humulin R) 0 units SUB-Q Q4HR [facility]; Protocol Last Admin: 02/23/19 15:00 Dose: Not Given Documented by: Lorazepam (Ativan) 1 mg IV Q1H PRN PRN Reason: Agitation Last Admin: 02/23/19 11:11 Dose: 1 mg Documented by: Multi-Ingred Cream/Lotion/Oil/Oint (Artificial Tears Ophth Oint) 1 applic OU Q4HR PRN PRN Reason: Dry Eye(s) Ondansetron HCl (Zofran) 4 mg IV Q8H PRN PRN Reason: Nausea And Vomiting Simple Syrup (Simple Syrup) 15 ml FEEDTUBE PRN PRN PRN Reason: Hypoglycemia Simple Syrup (Simple Syrup) 30 ml FEEDTUBE PRN PRN PRN Reason: Hypoglycemia Sodium Bicarbonate (Sodium Bicarbonate) 325 mg FEEDTUBE PRN PRN PRN Reason: For Clogged Feeding Tube Sodium Chloride (Sodium Chloride Flush Syringe 10 Ml) 10 ml IV BID SANCHEZ Last Admin: 02/23/19 14:51 Dose: 10 ml Documented by: Sodium Chloride (Sodium Chloride Flush Syringe 10 Ml) 10 ml IV PRN PRN PRN Reason: LINE FLUSH Objective Vital Signs - 12hr 02/23/19 02/23/19 02/23/19 06:00 07:00 07:26 Temperature Pulse Rate 97 H 96 H 97 H Pulse Rate [ From Monitor] Respiratory 13 16 Rate Blood Pressure 121/83 137/64 134/59 O2 Sat by Pulse 100 100 100 Oximetry O2 Sat by Pulse Oximetry [ Anterior Bilateral Throughout] 02/23/19 02/23/19 02/23/19 08:00 09:00 09:45 Temperature Pulse Rate 100 H 95 H 98 H Pulse Rate [ 96 H From Monitor] Respiratory 22 15 Rate Blood Pressure 112/66 128/72 108/64 O2 Sat by Pulse 100 100 Oximetry O2 Sat by Pulse Oximetry [ Anterior Bilateral Throughout] 02/23/19 02/23/19 02/23/19 10:00 10:11 10:15 Temperature 97.7 F Pulse Rate 98 H 97 H 98 H Pulse Rate [ From Monitor] Respiratory 17 19 Rate Blood Pressure 108/64 130/64 100/54 O2 Sat by Pulse 100 Oximetry O2 Sat by Pulse 100 Oximetry [ Anterior Bilateral Throughout] 02/23/19 02/23/19 02/23/19 10:30 10:45 11:00 Temperature Pulse Rate 109 H 100 H 128 H Pulse Rate [ From Monitor] Respiratory 18 Rate Blood Pressure 112/46 107/60 107/60 O2 Sat by Pulse 99 Oximetry O2 Sat by Pulse Oximetry [ Anterior Bilateral Throughout] 02/23/19 02/23/19 02/23/19 11:15 11:21 11:30 Temperature Pulse Rate 113 H 113 H 112 H Pulse Rate [ From Monitor] Respiratory Rate Blood Pressure 125/74 125/74 103/64 O2 Sat by Pulse 100 Oximetry O2 Sat by Pulse Oximetry [ Anterior Bilateral Throughout] 02/23/19 02/23/19 02/23/19 11:45 12:00 12:15 Temperature Pulse Rate 112 H 121 H 113 H Pulse Rate [ 121 H From Monitor] Respiratory 18 Rate Blood Pressure 109/67 109/67 103/76 O2 Sat by Pulse 100 Oximetry O2 Sat by Pulse Oximetry [ Anterior Bilateral Throughout] 02/23/19 02/23/19 02/23/19 12:30 12:45 13:00 Temperature Pulse Rate 113 H 121 H 113 H Pulse Rate [ From Monitor] Respiratory 25 H Rate Blood Pressure 104/72 102/46 92/46 O2 Sat by Pulse 100 Oximetry O2 Sat by Pulse Oximetry [ Anterior Bilateral Throughout] 02/23/19 02/23/19 02/23/19 13:15 13:24 14:00 Temperature 98.8 F Pulse Rate 112 H 116 H 100 H Pulse Rate [ From Monitor] Respiratory 18 17 Rate Blood Pressure 110/65 109/59 101/61 O2 Sat by Pulse 100 Oximetry O2 Sat by Pulse 100 Oximetry [ Anterior Bilateral Throughout] 02/23/19 02/23/19 02/23/19 15:00 16:00 17:00 Temperature Pulse Rate 98 H 111 H 116 H Pulse Rate [ 111 H From Monitor] Respiratory 20 17 19 Rate Blood Pressure 124/65 112/66 114/76 O2 Sat by Pulse 100 100 98 Oximetry O2 Sat by Pulse Oximetry [ Anterior Bilateral Throughout] Constitutional: asleep, other (critically ill on vent) Eyes: non-icteric Effort: normal Ascultation: Bilateral: other (coarse BS bilaterally) Cardiovascular: regular rate and rhythm (no mrg) Gastrointestinal: normoactive bowel sounds, soft, non-tender, non-distended Extremities: no edema, pink and warm Neurologic: other (somnolent, minimally arousable) Psychiatric: other (unable to assess) CBC and BMP: 02/22/19 03:42 02/23/19 05:00 ABG, PT/INR, D-dimer: ABG POC ABG pH 7.451 (7.35-7.45) H 02/22/19 09:04 POC ABG pCO2 38.4 (35-45) 02/22/19 09:04 POC ABG pO2 93 (80-105) 02/22/19 09:04 POC ABG HCO3 26.7 (22-26 mml/L) 02/22/19 09:04 POC ABG Total CO2 28 (23-27mmol/L) 02/22/19 09:04 POC ABG O2 Sat 98 02/22/19 09:04 PT/INR, D-dimer 2987.82 ng/mlDDU (0-234) H 02/22/19 05:54 Abnormal lab findings: Abnormal Labs 02/21/19 02/21/19 02/21/19 18:30 18:30 18:30 RBC 3.26 L Hgb 8.8 L Hct 29.0 L MCH 27 L MCHC 30 L RDW 19.1 H Lymph % (Auto) 6.1 L Lymph # 0.4 L Seg Neutrophils % 86.2 H D-Dimer POC ABG pH POC ABG pCO2 POC ABG pO2 Sodium 133 L Potassium 3.3 L Chloride 93.1 L Carbon Dioxide 33 H BUN Creatinine Glucose 161 H POC Glucose Alkaline Phosphatase 136 H Total Creatine Kinase 37 L CK-MB (CK-2) Rel Index Troponin T 0.192 H* Albumin 2.4 L LDL Cholesterol Direct 36 L Salicylates Acetaminophen 02/21/19 02/21/19 02/21/19 18:42 20:04 20:04 RBC Hgb Hct MCH MCHC RDW Lymph % (Auto) Lymph # Seg Neutrophils % D-Dimer POC ABG pH POC ABG pCO2 56.7 H POC ABG pO2 291 H Sodium Potassium Chloride Carbon Dioxide BUN Creatinine Glucose POC Glucose Alkaline Phosphatase Total Creatine Kinase CK-MB (CK-2) Rel Index Troponin T Albumin LDL Cholesterol Direct Salicylates < 0.3 L Acetaminophen < 5.0 L 02/21/19 02/22/19 02/22/19 22:35 03:42 03:42 RBC 3.20 L Hgb 8.8 L Hct 27.6 L MCH MCHC RDW 18.9 H Lymph % (Auto) 7.4 L Lymph # 0.7 L Seg Neutrophils % 84.7 H D-Dimer POC ABG pH POC ABG pCO2 POC ABG pO2 Sodium 134 L Potassium 2.6 L* D Chloride Carbon Dioxide BUN Creatinine Glucose POC Glucose Alkaline Phosphatase Total Creatine Kinase CK-MB (CK-2) Rel Index 5.2 H Troponin T 0.202 H* Albumin LDL Cholesterol Direct Salicylates Acetaminophen 02/22/19 02/22/19 02/22/19 03:42 05:54 09:04 RBC Hgb Hct MCH MCHC RDW Lymph % (Auto) Lymph # Seg Neutrophils % D-Dimer 2987.82 H POC ABG pH 7.451 H POC ABG pCO2 POC ABG pO2 Sodium Potassium Chloride Carbon Dioxide BUN Creatinine Glucose POC Glucose Alkaline Phosphatase Total Creatine Kinase CK-MB (CK-2) Rel Index 5.7 H Troponin T 0.193 H* Albumin LDL Cholesterol Direct Salicylates Acetaminophen 02/22/19 02/22/19 02/23/19 10:36 23:56 00:52 RBC Hgb Hct MCH MCHC RDW Lymph % (Auto) Lymph # Seg Neutrophils % D-Dimer POC ABG pH POC ABG pCO2 POC ABG pO2 Sodium Potassium 3.1 L Chloride Carbon Dioxide BUN Creatinine Glucose POC Glucose 58 L 111 H Alkaline Phosphatase Total Creatine Kinase CK-MB (CK-2) Rel Index Troponin T Albumin LDL Cholesterol Direct Salicylates Acetaminophen 02/23/19 02/23/19 02/23/19 05:00 06:35 14:26 RBC Hgb Hct MCH MCHC RDW Lymph % (Auto) Lymph # Seg Neutrophils % D-Dimer POC ABG pH POC ABG pCO2 POC ABG pO2 Sodium 135 L Potassium 3.1 L Chloride Carbon Dioxide BUN 21 H Creatinine 2.0 H Glucose 57 L POC Glucose 64 L 62 L Alkaline Phosphatase Total Creatine Kinase CK-MB (CK-2) Rel Index Troponin T Albumin LDL Cholesterol Direct Salicylates Acetaminophen Chest x-ray: report reviewed, image reviewed
--- NOTE | 2019-02-24 03:45 | XRay Report ---
CHEST 1 VIEW INDICATION / CLINICAL INFORMATION: follow up respiratory failure. COMPARISON: 02/23/2019 FINDINGS: SUPPORT DEVICES: Lines and tubes are unchanged. HEART / MEDIASTINUM: No significant abnormality. LUNGS / PLEURA: The diffuse lung consolidation probably edema has nearly completely resolved. There i s now right upper lobe volume loss not seen previously likely due to mucus plugging. No pneumothorax. ADDITIONAL FINDINGS: No significant additional findings. IMPRESSION: 1. Increasing right upper lobe volume loss. Signer Name: Andrez Ray MD Signed: 02/24/2019 3:41 AM Workstation Name: [id number]
[2019-02-24 05:22] LABS: Hematocrit 24.5 % (35.5-45.6); Hemoglobin 7.8 gm/dl (11.8-15.2); Mean Corpuscular HGB Conc 32 % (32-34); Mean Corpuscular Volume 86 fl (84-94); Platelet Count 278 K/mm3 (140-440); Red Blood Count 2.84 M/mm3 (3.65-5.03); Red Cell Distribution Width 19.5 % (13.2-15.2)
[2019-02-24 05:46] LABS: Calcium 9.7 mg/dL (8.4-10.2)
--- NOTE | 2019-02-24 09:42 | Progress Note ---
Subjective Principal diagnosis: respiratory failure Interval history: Patient was seen today for follow-up on multiple renal related issues Patient has had hemodialysis treatment yesterday Status post vascular evaluation Interdisciplinary notes were also reviewed Vitals intake output medications were reviewed Past medical history: Reviewed Family, social history: Reviewed Allergies: Reviewed Physical examination General: No acute distress Vitals: Reviewed HEENT: Oral mucosa moist no icterus Neck: Supple no thyromegaly nodular mass or JVD Central venous catheter site unremarkable Chest: Clear to auscultation anteriorly Heart: Regular rate and rhythm S1-S2 heard no S3-S4 Abdomen: Soft nontender no suprapubic masses no organomegaly Extremity: Dry skin less than 1+ edema AV graft: Palpable thrill Psych: No evidence of any agitation and aggression noted Derm: No petechial rash Assessment and plan: End stage renal disease: Patient will continue with hemodialysis on, Saturday and Saturday schedule, Will continue with hemodialysis only as tolerated Close monitoring on hemodynamics Encephalopathy: This fluctuates overtime, currently being followed by primary team Cardiomyopathy history of systolic heart failure/pulmonary hypertension/ Anemia and end-stage renal disease: To monitor , will give weekly erythropoietin 40,000 Secondary hyperparathyroidism: Periodically check vitamin D and phosphorus level along with PTH Respiratory failure, was intubated upon arrival Hypertension and volume: To monitor and follow low systolic blood pressure under 150, Nutrition: High-protein diet due to dialysis status, as tolerated Chest x-ray unremarkable, blood culture has been negative Comorbidities including blindness, stroke, congestive heart failure, ICD, loop recorder B disease, decubitus ulcer at his post colostomy Prognosis long-term very poor We'll continue to follow and make recommendation from renal standpoint Objective - Vital Signs Vital signs: Vital Signs - 12hr 02/23/19 02/23/19 02/23/19 22:00 23:00 23:40 Temperature 98.4 F Pulse Rate 124 H 135 H Pulse Rate [ From Monitor] Respiratory 15 21 Rate Blood Pressure 127/55 133/68 O2 Sat by Pulse 99 97 Oximetry 02/24/19 02/24/19 02/24/19 00:00 00:04 00:20 Temperature Pulse Rate 121 H 122 H 122 H Pulse Rate [ 125 H From Monitor] Respiratory 21 20 Rate Blood Pressure 133/67 132/72 133/67 O2 Sat by Pulse 100 100 99 Oximetry 02/24/19 02/24/19 02/24/19 01:00 02:00 03:00 Temperature Pulse Rate 122 H 114 H 122 H Pulse Rate [ From Monitor] Respiratory 13 19 Rate Blood Pressure 114/73 130/72 140/80 O2 Sat by Pulse 100 99 98 Oximetry 02/24/19 02/24/19 02/24/19 03:31 03:56 04:00 Temperature 99.6 F Pulse Rate 112 H 113 H Pulse Rate [ 108 H From Monitor] Respiratory 12 Rate Blood Pressure 140/80 112/70 O2 Sat by Pulse 100 Oximetry 02/24/19 02/24/19 02/24/19 05:00 06:00 07:00 Temperature Pulse Rate 122 H 100 H 99 H Pulse Rate [ From Monitor] Respiratory 19 10 L 8 L Rate Blood Pressure 122/65 109/59 116/64 O2 Sat by Pulse 99 100 100 Oximetry 02/24/19 08:57 Temperature Pulse Rate 98 H Pulse Rate [ From Monitor] Respiratory Rate Blood Pressure 116/67 O2 Sat by Pulse 100 Oximetry - Lab 02/26/19 03:45 02/26/19 03:45 Most recent lab results Calcium 9.7 mg/dL (8.4-10.2) 02/24/19 04:55 Magnesium 2.20 mg/dL (1.7-2.3) 02/21/19 18:30 Medications & Allergies - Medications Allergies/Adverse Reactions: Allergies haloperidol [From Haldol] Adverse Reaction (Verified 03/13/18 12:10) Unknown haloperidol lactate [From Haldol] Adverse Reaction (Verified 03/13/18 12:10) Unknown Home Medications: Home Medications Medication Instructions Recorded Confirmed Last Taken Type risperiDONE [RisperDAL] 1 mg PO QAM 03/13/18 02/21/19 Unknown History Sertraline [Zoloft] 100 mg PO QDAY 08/26/18 02/21/19 Unknown History Polyethylene Glycol 3350 [Miralax 17 gm PO QDAY #30 packet 11/05/18 02/21/19 Unknown Rx 3350] Aspirin EC 81 mg PO DAILY #30 11/19/18 02/21/19 Unknown Rx Docusate Sodium [Colace CAP] 100 mg PO BID #60 11/19/18 02/21/19 Unknown Rx Folic Acid [Folvite] 1 mg PO DAILY #30 tab 11/19/18 02/21/19 Unknown Rx Famotidine [Pepcid] 20 mg PO DAILY tablet 12/08/18 02/21/19 Unknown Rx Gabapentin [Neurontin] 100 mg PO QHS capsule 12/08/18 02/21/19 Unknown Rx Metoprolol [Lopressor TAB] 50 mg PO BID 30 Days tablet 12/08/18 02/21/19 Unknown Rx Sevelamer Carbonate [Renvela] 800 mg PO TIDWM tablet 12/08/18 02/21/19 Unknown Rx hydrALAZINE [Apresoline TAB] 100 mg PO Q8HR #120 tablet 12/08/18 02/21/19 Unknown Rx Acetaminophen [Acetaminophen TAB] 650 mg PO Q12H PRN 12/15/18 02/21/19 Unknown History Glucagon,Human Recombinant 1 mg IJ Q15MIN PRN 12/15/18 02/21/19 Unknown History [Glucagon Emergency Kit] Insulin Aspart [NovoLOG 100 See Protocol SQ QWEEK 12/15/18 02/21/19 Unknown History UNITS/ML VIAL] Active Medications: Generic Name Dose Route Start Last Admin Trade Name Freq PRN Reason Stop Dose Admin Acetaminophen 650 mg 02/21/19 22:19 Tylenol PO Q4H PRN Pain MILD(1-3)/Fever >100.5/HILL Lipase/Protease/Amylase 1 each 02/23/19 15:09 Pancreazkaren Barrientos 10,500 Unit FEEDTUBE PRN PRN For Clogged Feeding Tube Dextrose 50 ml 02/21/19 22:22 02/23/19 14:51 D50w (25gm) Syringe IV 50 ml PRN PRN Administration Hypoglycemia Enoxaparin Sodium 30 mg 02/23/19 10:00 02/23/19 09:56 Lovenox SUB-Q 30 mg QDAY SANCHEZ Administration Famotidine 20 mg 02/23/19 10:00 02/23/19 09:57 Pepcid PO 20 mg DAILY SANCHEZ Administration Hydrophilic Ointment 1 applic 02/21/19 18:24 Vaseline Lip Therapy TP Q2HR PRN Dry Lips Sodium Chloride 100 mls @ 999 mls/hr 02/23/19 11:15 Nacl 0.9% IV UMA PRN Hypotension Insulin Human Regular 0 units 02/23/19 02:00 02/23/19 22:54 Humulin R SUB-Q Not Given Q4HR [facility] Protocol Lorazepam 1 mg 02/22/19 20:08 02/23/19 22:53 Ativan IV 1 mg Q1H PRN Administration Agitation Multi-Ingred Cream/Lotion/Oil/Oint 1 applic 02/21/19 18:24 Artificial Tears Ophth Oint OU Q4HR PRN Dry Eye(s) Ondansetron HCl 4 mg 02/21/19 22:19 Zofran IV Q8H PRN Nausea And Vomiting Simple Syrup 15 ml 02/23/19 15:09 Simple Syrup FEEDTUBE PRN PRN Hypoglycemia Simple Syrup 30 ml 02/23/19 15:09 Simple Syrup FEEDTUBE PRN PRN Hypoglycemia Sodium Bicarbonate 325 mg 02/23/19 15:09 Sodium Bicarbonate FEEDTUBE PRN PRN For Clogged Feeding Tube Sodium Chloride 10 ml 02/22/19 10:00 02/23/19 22:53 Sodium Chloride Flush Syringe 10 Ml IV 10 ml BID SANCHEZ Administration Sodium Chloride 10 ml 02/21/19 22:19 Sodium Chloride Flush Syringe 10 Ml IV PRN PRN LINE FLUSH
--- NOTE | 2019-02-24 10:02 | Progress Note ---
Assessment and Plan Acute respiratory failure Intubated. Chest CTA 02/22/2019 showed mod right and small left pleural effusions, large portions of RUL and both lower lobes collapsed. CXR this AM showed RUL volume loss improvement, no pneumothorax. Pulmonary following. Altered mental status Head CT with no acute findings. NSTEMI type II Chronically elevated Malika. Permanent atrial fibrillation and atrial flutter Currently with HR 80s - 100s. Resume lopressor and titrate as tolerated. No long-term AC in setting of dementia, anemia, thrombocytopenia, and multiple co-morbidities. Loop recorder in situ Cardiomyopathy - EF 35-40% No current clinical evidence of acutely decompensated HF. Echo done 12/16/2018 showed EF 35-40%, mild LVH, RV systolic function mod reduced, RA mildly dilated, pulm HTN with RVSP 53mmHg, large pleural effusion, markedly increased RA pressure. Resume lopressor and titrate as tolerated. Consider addition of ACEI/ARB when BPs permit and if okay per nephrology. ESRD on HD Nephrology following. Hypokalemia Replete PRN. Anemia Chronic. Monitor CBC. Elevated DDimer Chest CTA negative for PE HTN HLP DM ? H/o CVA / PEG tube in situ Unstageable sacral ulcer with osteomyelitis, status post debridement Legally blind Schizophrenia The patient has been seen in conjunction with Dr. Woodall who agrees with the assessment and plan of care. Subjective Date of service: 02/24/19 Principal diagnosis: respiratory failure Interval history: pt resting in bed, remains intubated. in AFib/AFlutter on telemetry with HR 100s. no family at bedside. Objective Last Vital Signs Temp 99.6 F 02/24/19 03:31 Pulse 98 H 02/24/19 08:57 Resp 8 L 02/24/19 07:00 BP 116/67 02/24/19 08:57 Pulse Ox 100 02/24/19 08:57 - Physical Examination General: Other (intubated) HEENT: Positive: PERRL, EOMI Neck: Positive: neck supple, trachea midline, Other (right IJ PermCath in place). Negative: JVD/HJR, Masses Cardiac: Positive: irregularly irregular, S1/S2 Lungs: Positive: Decreased Breath Sounds Neuro: Positive: Other (intubated) Abdomen: Positive: Unremarkable Extremities: Absent: edema - Labs and Meds CBC 02/24/19 Range/Units 04:55 WBC 9.0 (4.5-11.0) K/mm3 RBC 2.84 L (3.65-5.03) M/mm3 Hgb 7.8 L (11.8-15.2) gm/dl Hct 24.5 L (35.5-45.6) % Plt Count 278 (140-440) K/mm3 Comprehensive Metabolic Panel 02/24/19 Range/Units 04:55 Sodium 141 (137-145) mmol/L Potassium 3.8 D (3.6-5.0) mmol/L Chloride 103.8 (98-107) mmol/L Carbon Dioxide 28 (22-30) mmol/L BUN 12 (9-20) mg/dL Creatinine 1.8 H (0.8-1.5) mg/dL Glucose 73 L (75-100) mg/dL Calcium 9.7 (8.4-10.2) mg/dL - Imaging and Cardiology EKG: report reviewed, image reviewed Echo: report reviewed (Echo done 12/16/2018 showed EF 35-40%, mild LVH, RV systolic function mod reduced, RA mildly dilated, pulm HTN with RVSP 53mmHg, large pleural )
[2019-02-24] MEDS: FAMOTIDINE 20 MG TAB PO SCH (10:15)
[2019-02-24] MEDS: ENOXAPARIN 30 MG/0.3 ML INJ SUB-Q SCH (10:15)
[2019-02-24] MEDS: METOPROLOL TARTRATE 25 MG TAB PO SCH ×2 (10:18→22:21)
[2019-02-24] MEDS: INSULIN REGULAR, HUMAN 100 UNITS/1 ML SUB-Q SCH ×3 (11:00→22:17)
--- NOTE | 2019-02-24 14:58 | Progress Note ---
Assessment and Plan Imp: 1. Acute encephalopathy, probably metabolic or toxic 2. A/C systolic CHF 3. Dilated CMP 4. Pulm HTN 5. ESRD 6. RUL atelectasis, probably mucous plugging Rec: 1. CHF resolved on CXR already s/p hemodialysis; however, now he has RUL co llapse; will add chest PT with vest, scheduled mucinex per PEG, Duonebs TID, and Mucomyst nebs BID; repeat CXR in AM; if fails to improve would need bronchoscopy; doubt pneumonia in absence of positive sputum culture, fever, or leukocytosis 2. Daily PSV; failed 02/24/19; he does not need any more sedation so Ativan was discontinued 3. Avoid sedatives 4. DVT and GI PPx 5. TFs per PEG -> try to get to goal; cont. to monitor blood glucose which has been intermittently low 6. Vascular eval. done re: LUE AV graft, see note 7. Further plans pending clinical course CCT 31 minutes No family present Subjective Date of service: 02/24/19 Principal diagnosis: respiratory failure Interval history: No events. Minimally arousable but will follow basic commands. On Ventilator. Unable to give history. Failed PSV trials with TV below 250mL. Notably received IV Ativan last PM for unclear reasons. Active Medications Acetaminophen (Tylenol) 650 mg PO Q4H PRN PRN Reason: Pain MILD(1-3)/Fever >100.5/HILL Acetylcysteine (Mucomyst Inhalation) 200 mg INHALATION Q12HRT [facility] Albuterol/Ipratropium (Duoneb *Not For Prn Use*) 1 ampul IH TIDRT [facility] Lipase/Protease/Amylase (Mc Barrientos 10,500 Unit) 1 each FEEDTUBE PRN PRN PRN Reason: For Clogged Feeding Tube Dextrose (D50w (25gm) Syringe) 50 ml IV PRN PRN PRN Reason: Hypoglycemia Last Admin: 02/23/19 14:51 Dose: 50 ml Documented by: Enoxaparin Sodium (Lovenox) 30 mg SUB-Q QDAY [facility] Last Admin: 02/24/19 10:15 Dose: 30 mg Documented by: Famotidine (Pepcid) 20 mg PO DAILY [facility] Last Admin: 02/24/19 10:15 Dose: 20 mg Documented by: Guaifenesin (Robitussin) 200 mg PO Q4H [facility] Hydrophilic Ointment (Vaseline Lip Therapy) 1 applic TP Q2HR PRN PRN Reason: Dry Lips Sodium Chloride (Nacl 0.9%) 100 mls @ 999 mls/hr IV UMA PRN PRN Reason: Hypotension Insulin Human Regular (Humulin R) 0 units SUB-Q Q4HR [facility]; Protocol Last Admin: 02/24/19 11:00 Dose: Not Given Documented by: Metoprolol Tartrate (Lopressor) 25 mg PO BID [facility] Last Admin: 02/24/19 10:18 Dose: 25 mg Documented by: Multi-Ingred Cream/Lotion/Oil/Oint (Artificial Tears Ophth Oint) 1 applic OU Q4HR PRN PRN Reason: Dry Eye(s) Ondansetron HCl (Zofran) 4 mg IV Q8H PRN PRN Reason: Nausea And Vomiting Simple Syrup (Simple Syrup) 15 ml FEEDTUBE PRN PRN PRN Reason: Hypoglycemia Simple Syrup (Simple Syrup) 30 ml FEEDTUBE PRN PRN PRN Reason: Hypoglycemia Sodium Bicarbonate (Sodium Bicarbonate) 325 mg FEEDTUBE PRN PRN PRN Reason: For Clogged Feeding Tube Sodium Chloride (Sodium Chloride Flush Syringe 10 Ml) 10 ml IV BID [facility] Last Admin: 02/24/19 10:15 Dose: 10 ml Documented by: Sodium Chloride (Sodium Chloride Flush Syringe 10 Ml) 10 ml IV PRN PRN PRN Reason: LINE FLUSH Objective Vital Signs - 12hr 02/24/19 02/24/19 02/24/19 03:00 03:31 03:56 Temperature 99.6 F Pulse Rate 122 H 112 H Pulse Rate [ From Monitor] Respiratory Rate Blood Pressure 140/80 140/80 O2 Sat by Pulse 98 Oximetry 02/24/19 02/24/19 02/24/19 04:00 05:00 06:00 Temperature Pulse Rate 113 H 122 H 100 H Pulse Rate [ 108 H From Monitor] Respiratory 12 19 10 L Rate Blood Pressure 112/70 122/65 109/59 O2 Sat by Pulse 100 99 100 Oximetry 02/24/19 02/24/19 02/24/19 07:00 08:00 08:57 Temperature 98.9 F Pulse Rate 99 H 100 H 98 H Pulse Rate [ 108 H From Monitor] Respiratory 8 L 12 Rate Blood Pressure 116/64 116/67 116/67 O2 Sat by Pulse 100 100 100 Oximetry 02/24/19 02/24/19 02/24/19 09:00 10:00 10:18 Temperature Pulse Rate 105 H 105 H 100 H Pulse Rate [ From Monitor] Respiratory 15 13 Rate Blood Pressure 133/74 129/72 129/72 O2 Sat by Pulse 100 100 Oximetry 02/24/19 02/24/19 02/24/19 11:00 11:27 12:00 Temperature Pulse Rate 99 H 97 H 97 H Pulse Rate [ 97 H From Monitor] Respiratory 9 L 13 Rate Blood Pressure 119/67 119/67 126/71 O2 Sat by Pulse 100 100 100 Oximetry 02/24/19 02/24/19 12:39 13:00 Temperature Pulse Rate 100 H 82 Pulse Rate [ From Monitor] Respiratory 10 L Rate Blood Pressure 111/55 O2 Sat by Pulse 100 Oximetry Constitutional: asleep, other (critically ill on vent) Eyes: non-icteric Effort: normal Ascultation: Bilateral: other (coarse BS bilaterally) Cardiovascular: regular rate and rhythm (no mrg) Gastrointestinal: normoactive bowel sounds, soft, non-tender, non-distended Extremities: no edema, pink and warm Neurologic: other (somnolent, minimally arousable, squeezes with R hand and wiggles toes on command) Psychiatric: other (unable to assess) CBC and BMP: 02/24/19 04:55 02/24/19 04:55 ABG, PT/INR, D-dimer: ABG POC ABG pH 7.511 (7.35-7.45) H 02/24/19 04:12 POC ABG pCO2 33.9 (35-45) L 02/24/19 04:12 POC ABG pO2 62 (80-105) L 02/24/19 04:12 POC ABG HCO3 27.1 (22-26 mml/L) 02/24/19 04:12 POC ABG Total CO2 28 (23-27mmol/L) 02/24/19 04:12 POC ABG O2 Sat 94 02/24/19 04:12 PT/INR, D-dimer 2987.82 ng/mlDDU (0-234) H 02/22/19 05:54 Abnormal lab findings: Abnormal Labs 02/21/19 02/21/19 02/21/19 18:30 18:30 18:30 RBC 3.26 L Hgb 8.8 L Hct 29.0 L MCH 27 L MCHC 30 L RDW 19.1 H Lymph % (Auto) 6.1 L Lymph # 0.4 L Seg Neutrophils % 86.2 H D-Dimer POC ABG pH POC ABG pCO2 POC ABG pO2 Sodium 133 L Potassium 3.3 L Chloride 93.1 L Carbon Dioxide 33 H BUN Creatinine Glucose 161 H POC Glucose Alkaline Phosphatase 136 H Total Creatine Kinase 37 L CK-MB (CK-2) Rel Index Troponin T 0.192 H* Albumin 2.4 L LDL Cholesterol Direct 36 L Salicylates Acetaminophen 02/21/19 02/21/19 02/21/19 18:42 20:04 20:04 RBC Hgb Hct MCH MCHC RDW Lymph % (Auto) Lymph # Seg Neutrophils % D-Dimer POC ABG pH POC ABG pCO2 56.7 H POC ABG pO2 291 H Sodium Potassium Chloride Carbon Dioxide BUN Creatinine Glucose POC Glucose Alkaline Phosphatase Total Creatine Kinase CK-MB (CK-2) Rel Index Troponin T Albumin LDL Cholesterol Direct Salicylates < 0.3 L Acetaminophen < 5.0 L 02/21/19 02/22/19 02/22/19 22:35 03:42 03:42 RBC 3.20 L Hgb 8.8 L Hct 27.6 L MCH MCHC RDW 18.9 H Lymph % (Auto) 7.4 L Lymph # 0.7 L Seg Neutrophils % 84.7 H D-Dimer POC ABG pH POC ABG pCO2 POC ABG pO2 Sodium 134 L Potassium 2.6 L* D Chloride Carbon Dioxide BUN Creatinine Glucose POC Glucose Alkaline Phosphatase Total Creatine Kinase CK-MB (CK-2) Rel Index 5.2 H Troponin T 0.202 H* Albumin LDL Cholesterol Direct Salicylates Acetaminophen 02/22/19 02/22/19 02/22/19 03:42 05:54 09:04 RBC Hgb Hct MCH MCHC RDW Lymph % (Auto) Lymph # Seg Neutrophils % D-Dimer 2987.82 H POC ABG pH 7.451 H POC ABG pCO2 POC ABG pO2 Sodium Potassium Chloride Carbon Dioxide BUN Creatinine Glucose POC Glucose Alkaline Phosphatase Total Creatine Kinase CK-MB (CK-2) Rel Index 5.7 H Troponin T 0.193 H* Albumin LDL Cholesterol Direct Salicylates Acetaminophen 02/22/19 02/22/19 02/23/19 10:36 23:56 00:52 RBC Hgb Hct MCH MCHC RDW Lymph % (Auto) Lymph # Seg Neutrophils % D-Dimer POC ABG pH POC ABG pCO2 POC ABG pO2 Sodium Potassium 3.1 L Chloride Carbon Dioxide BUN Creatinine Glucose POC Glucose 58 L 111 H Alkaline Phosphatase Total Creatine Kinase CK-MB (CK-2) Rel Index Troponin T Albumin LDL Cholesterol Direct Salicylates Acetaminophen 02/23/19 02/23/19 02/23/19 05:00 06:35 14:26 RBC Hgb Hct MCH MCHC RDW Lymph % (Auto) Lymph # Seg Neutrophils % D-Dimer POC ABG pH POC ABG pCO2 POC ABG pO2 Sodium 135 L Potassium 3.1 L Chloride Carbon Dioxide BUN 21 H Creatinine 2.0 H Glucose 57 L POC Glucose 64 L 62 L Alkaline Phosphatase Total Creatine Kinase CK-MB (CK-2) Rel Index Troponin T Albumin LDL Cholesterol Direct Salicylates Acetaminophen 02/24/19 02/24/19 02/24/19 02:11 04:12 04:55 RBC 2.84 L Hgb 7.8 L Hct 24.5 L MCH MCHC RDW 19.5 H Lymph % (Auto) Lymph # Seg Neutrophils % D-Dimer POC ABG pH 7.511 H POC ABG pCO2 33.9 L POC ABG pO2 62 L Sodium Potassium Chloride Carbon Dioxide BUN Creatinine Glucose POC Glucose 69 L Alkaline Phosphatase Total Creatine Kinase CK-MB (CK-2) Rel Index Troponin T Albumin LDL Cholesterol Direct Salicylates Acetaminophen 02/24/19 02/24/19 04:55 05:41 RBC Hgb Hct MCH MCHC RDW Lymph % (Auto) Lymph # Seg Neutrophils % D-Dimer POC ABG pH POC ABG pCO2 POC ABG pO2 Sodium Potassium Chloride Carbon Dioxide BUN Creatinine 1.8 H Glucose 73 L POC Glucose 127 H Alkaline Phosphatase Total Creatine Kinase CK-MB (CK-2) Rel Index Troponin T Albumin LDL Cholesterol Direct Salicylates Acetaminophen Chest x-ray: report reviewed, image reviewed (CHF resolved; new RUL atelectasis)
[2019-02-24] MEDS ORDERED: guaiFENesin 100 MG/5 ML ORAL LIQD PO SCH (15:00)
--- NOTE | 2019-02-24 15:47 | Event Note ---
Date: 02/24/19 Pt sedated on vent. LUE AVG with palpable thrill. Okay to use for next HD. Needs fistulagram as his condition improves, and he is moved out of the ICU.
--- NOTE | 2019-02-24 17:50 | Progress Note ---
Assessment and Plan Assessment and plan: Patient is 63-year-old man with a history of end-stage renal disease on dialysis Saturday, , Saturday, diabetes, anemia, schizophrenia, hypertension, afib, blind in the left eye, hyperparathyroidism, sacral ulcers, osteomyelitis was brought to the hospital for respiratory distress. Patient became hypotensive after intubation in the emergency room. Still intubated, diagnosed with fluid overload,pleural effusion. Pulmonology, cardiology and Nephrology following. Acute respiratory failure on mechanical ventilator >72 hrs Intubated, on Fentanyl Pulm consulted Acute pulmonary edema, fluid overload on CXR Dialysis Dilated CMP Continue diuresis Acute encephalopathy, probably metabolic or toxic Continues on Mechanical ventilator. ESRD on hemodialysis nephrology following Vascular eval. done re: LUE AV graft, see note Bilateral pleural effusions Anticipate improvement with Permanent atrial fibrillation and flutter Not on anticoagulation because of anemia thrombocytopenia Diabetes mellitus type 2 Fingerstick Q4h NSTEMI type 2 Cardiology following Schizophrenia Legally blind supportive care hypertension Monitor BP Hypokalemia repeat in am Cardiomyiopathy EF 35-40% Pulmonary hypertension Dysphagia s/p PEG tube Sacral decub ulcer Wound Nurse consulted History of sacral osteomyelitis and LE ulcers Completed Antibiotics Place on contact isolation for ESBL Klebsiella pneumonia on wound culture 01/02/19 Schizophrenia Pulm HTN RUL atelectasis, probably mucous plugging DVT prophylaxis Lovenox Full code status The high probability of a clinically significant, sudden or life threatening deterioration of the [pulmonary, neuro, renal] system(s) required my full and direct attention, intervention and personal management. The aggregate critical care time was [35] minutes. This time is in addition to time spent performing reported procedures but includes the following: [x] Data Review and interpretation [x] Patient assessment and monitoring of vital signs [] Documentation [x] Medication orders and management History Interval history: Patient seen and examined remains intubated, no new complaints. Hospitalist Physical - Physical exam Narrative exam: Gen: Not in acute distress, lying in bed, intubated HEENT: Normocephalic, atraumatic Neck: supple, no JVD Heart: S1 and S2 irreg, no murmurs, rubs or gallop Lungs: Bilateral crackles, no wheeze Abd: soft, non tender, non distended, normal BS, PRG tube, wound dressing in place. Ext: No edema, no clubbing, no cyanosis, rulcer left 5th finger, dark area right heel Neuro: Intubated MSK: Sacral wound - Constitutional Vitals: Temp Pulse Resp BP Pulse Ox 98.1 F 100 H 19 123/71 99 02/24/19 12:00 02/24/19 15:26 02/24/19 15:00 02/24/19 15:26 02/24/19 15:26 General appearance: Present: no acute distress Results - Labs CBC & Chem 7: 02/24/19 04:55 02/24/19 04:55 Labs: Laboratory Last Values WBC 9.0 K/mm3 (4.5-11.0) 02/24/19 04:55 RBC 2.84 M/mm3 (3.65-5.03) L 02/24/19 04:55 Hgb 7.8 gm/dl (11.8-15.2) L 02/24/19 04:55 Hct 24.5 % (35.5-45.6) L 02/24/19 04:55 MCV 86 fl (84-94) 02/24/19 04:55 MCH 28 pg (28-32) 02/24/19 04:55 MCHC 32 % (32-34) 02/24/19 04:55 RDW 19.5 % (13.2-15.2) H 02/24/19 04:55 Plt Count 278 K/mm3 (140-440) 02/24/19 04:55 Lymph % (Auto) 7.4 % (13.4-35.0) L 02/22/19 03:42 [place] % (Auto) 5.4 % (0.0-7.3) 02/22/19 03:42 Eos % (Auto) 1.7 % (0.0-4.3) 02/22/19 03:42 Baso % (Auto) 0.8 % (0.0-1.8) 02/22/19 03:42 Lymph # 0.7 K/mm3 (1.2-5.4) L 02/22/19 03:42 [place]clennan # 0.5 K/mm3 (0.0-0.8) 02/22/19 03:42 Eos # 0.2 K/mm3 (0.0-0.4) 02/22/19 03:42 Baso # 0.1 K/mm3 (0.0-0.1) 02/22/19 03:42 Seg Neutrophils % 84.7 % (40.0-70.0) H 02/22/19 03:42 Seg Neutrophils # 7.6 K/mm3 (1.8-7.7) 02/22/19 03:42 APTT 33.7 Sec. (24.2-36.6) 02/21/19 18:30 2987.82 ng/mlDDU (0-234) H 02/22/19 05:54 POC ABG pH 7.511 (7.35-7.45) H 02/24/19 04:12 POC ABG pCO2 33.9 (35-45) L 02/24/19 04:12 POC ABG pO2 62 (80-105) L 02/24/19 04:12 POC ABG HCO3 27.1 (22-26 mml/L) 02/24/19 04:12 POC ABG Total CO2 28 (23-27mmol/L) 02/24/19 04:12 POC ABG O2 Sat 94 02/24/19 04:12 POC ABG Base Excess 4 ((-2) - (+3)mmol/L) 02/24/19 04:12 30 % 02/24/19 04:12 Sodium 141 mmol/L (137-145) 02/24/19 04:55 Potassium 3.8 mmol/L (3.6-5.0) D 02/24/19 04:55 Chloride 103.8 mmol/L (98-107) 02/24/19 04:55 Carbon Dioxide 28 mmol/L (22-30) 02/24/19 04:55 13 mmol/L 02/24/19 04:55 BUN 12 mg/dL (9-20) 02/24/19 04:55 1.8 mg/dL (0.8-1.5) H 02/24/19 04:55 Estimated GFR 46 ml/min 02/24/19 04:55 7 % 02/24/19 04:55 Glucose 73 mg/dL (75-100) L 02/24/19 04:55 POC Glucose 85 (70-105) 02/24/19 10:52 Lactic Acid 1.00 mmol/L (0.7-2.0) 02/21/19 20:58 Calcium 9.7 mg/dL (8.4-10.2) 02/24/19 04:55 Magnesium 2.20 mg/dL (1.7-2.3) 02/21/19 18:30 0.20 mg/dL (0.1-1.2) 02/21/19 18:30 AST 17 units/L (5-40) 02/21/19 18:30 ALT 7 units/L (7-56) 02/21/19 18:30 136 units/L (35-129) H 02/21/19 18:30 28.0 umol/L (25-60) 02/21/19 20:04 64 units/L (55-170) 02/22/19 03:42 CK-MB (CK-2) 3.7 ng/mL (0.0-4.0) 02/22/19 03:42 CK-MB (CK-2) Rel Index 5.7 (0-4) H 02/22/19 03:42 0.193 ng/mL (0.00-0.029) H* 02/22/19 03:42 6.7 g/dL (6.3-8.2) 02/21/19 18:30 2.4 g/dL (3.9-5) L 02/21/19 18:30 0.6 % 02/21/19 18:30 Triglycerides 51 mg/dL (2-149) 02/21/19 18:30 Cholesterol 82 mg/dL (50-199) 02/21/19 18:30 36 mg/dL (50-130) L 02/21/19 18:30 40 mg/dL (40-59) 02/21/19 18:30 2.05 % 02/21/19 18:30 TSH 2.760 mlU/mL (0.270-4.200) 02/21/19 20:04 Salicylates < 0.3 mg/dL (2.8-20.0) L 02/21/19 20:04 Acetaminophen < 5.0 ug/mL (10.0-30.0) L 02/21/19 20:04 Hepatitis A IgM Ab Non-reactive (NonReactive) 02/23/19 11:20 Hep Bs Antigen Non-reactive (Negative) 02/23/19 11:20 Hep B Core IgM Ab Non-reactive (NonReactive) 02/23/19 11:20 Non-reactive (NonReactive) 02/23/19 11:20 Active Medications - Current Medications Current Medications: Generic Name Dose Route Start Last Admin Trade Name Freq PRN Reason Stop Dose Admin Acetaminophen 650 mg 02/21/19 22:19 Tylenol PO Q4H PRN Pain MILD(1-3)/Fever >100.5/HILL Acetylcysteine 200 mg 02/24/19 20:00 Mucomyst Inhalation INHALATION Q12HRT [facility] Albuterol/Ipratropium 1 ampul 02/24/19 20:00 Duoneb *Not For Prn Use* IH TIDRT [facility] Lipase/Protease/Amylase 1 each 02/23/19 15:09 Pancreaze 10,500 Unit FEEDTUBE PRN PRN For Clogged Feeding Tube Dextrose 50 ml 02/21/19 22:22 02/23/19 14:51 D50w (25gm) Syringe IV 50 ml PRN PRN Administration Hypoglycemia Enoxaparin Sodium 30 mg 02/23/19 10:00 02/24/19 10:15 Lovenox SUB-Q 30 mg QDAY [facility] Administration Famotidine 20 mg 02/23/19 10:00 02/24/19 10:15 Pepcid PO 20 mg DAILY [facility] Administration Guaifenesin 200 mg 02/24/19 16:00 Robitussin PO Q4HR [facility] Hydrophilic Ointment 1 applic 02/21/19 18:24 Vaseline Lip Therapy TP Q2HR PRN Dry Lips Sodium Chloride 100 mls @ 999 mls/hr 02/23/19 11:15 Nacl 0.9% IV UMA PRN Hypotension Insulin Human Regular 0 units 02/23/19 02:00 02/24/19 14:40 Humulin R SUB-Q Not Given Q4HR [facility] Protocol Metoprolol Tartrate 25 mg 02/24/19 11:00 02/24/19 10:18 Lopressor PO 25 mg BID SANCHEZ Administration Multi-Ingred Cream/Lotion/Oil/Oint 1 applic 02/21/19 18:24 Artificial Tears Ophth Oint OU Q4HR PRN Dry Eye(s) Ondansetron HCl 4 mg 02/21/19 22:19 Zofran IV Q8H PRN Nausea And Vomiting Simple Syrup 15 ml 02/23/19 15:09 Simple Syrup FEEDTUBE PRN PRN Hypoglycemia Simple Syrup 30 ml 02/23/19 15:09 Simple Syrup FEEDTUBE PRN PRN Hypoglycemia Sodium Bicarbonate 325 mg 02/23/19 15:09 Sodium Bicarbonate FEEDTUBE PRN PRN For Clogged Feeding Tube Sodium Chloride 10 ml 02/22/19 10:00 02/24/19 10:15 Sodium Chloride Flush Syringe 10 Ml IV 10 ml BID SANCHEZ Administration Sodium Chloride 10 ml 02/21/19 22:19 Sodium Chloride Flush Syringe 10 Ml IV PRN PRN LINE FLUSH Nutrition/Malnutrition Assess - Dietary Evaluation Nutrition/Malnutrition Findings: Nutrition Notes Start: 02/22/19 12:51 Freq: Status: Active Protocol: Document 02/23/19 14:52 RM (Rec: 02/23/19 15:09 RM [id number]) Nutrition Notes Initial or Follow up Reassessment Current Diagnosis Diabetes,Hypertension Other Pertinent Diagnosis Sacral PU, ESRD on HD (T/Thurs /Sat), Schizophrenia, Blind in L eye Current Diet NPO Labs/Tests K 3.1 Pertinent Medications Reviewed Height 5 ft 10 in Weight 88.7 kg [place] Body Weight (kg) 75.45 BMI 28.0 Weight change and time frame Noted wt loss. Likely d/t fluid change from HD. Subjective/Other Information Consulted for TF recommendation. Pt on vent and receiving HD at time of visit. 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 Burn Absent Trauma Absent #2 Nutrition Diagnosis Increased nutrient needs ( specify in comment below) Diagnosis Progress(for reassessment Continues documentation) #1 Nutrition Diagnosis Inadequate oral intake Diagnosis Progress(for reassessment Continues documentation) Is patient on ventilator? Yes Is Patient Ambulatory and/or Out of Bed No REE-([place]-confined to bed) Calculation Used for Recommendations Kcal/kg Additional Notes Protein Needs: 106-177g (1.2- 2g/kg) Fluid Needs: 1 ml/kcal Nutrition Intervention Nutrition Support: Vital 1.2 at 70 ml/hr Water flush of 100 mls q 4 hrs Kcal 2,016 Protein (gm) 126 Fluid (mL) 1,362 Add Supplement/Snack (indicate name/kcal Abhilash BID /protein ) Provides kCal: 190 Provides Protein (gm) 5 Goal #1 TF tolerance Goal #2 Meet nutritional needs as best possible via TF Anticipated Discharge Needs: Unable to determine at this time Follow-Up By: 02/25/19 Additional Comments Follow for new TF
[2019-02-24] MEDS: IPRATROPIUM/ALBUTEROL SULFATE 3 ML AMPUL.NEB IH SCH (20:20)
[2019-02-24] MEDS: ACETYLCYSTEINE 20% 200 MG/1 ML *FOR INHALATION USE INHALATION SCH (20:20)
[2019-02-24] MEDS: guaiFENesin 100 MG/5 ML ORAL LIQD PO SCH ×2 (21:56→22:21)
[2019-02-25] MEDS: guaiFENesin 100 MG/5 ML ORAL LIQD PO SCH ×7 (01:33→21:25)
[2019-02-25] MEDS: INSULIN REGULAR, HUMAN 100 UNITS/1 ML SUB-Q SCH ×5 (01:54→22:00)
--- NOTE | 2019-02-25 03:26 | XRay Report ---
CHEST 1 VIEW INDICATION / CLINICAL INFORMATION: follow up respiratory failure. COMPARISON: 02/24/2019 FINDINGS: SUPPORT DEVICES: Lines and tubes are unchanged. HEART / MEDIASTINUM: Moderately enlarged. LUNGS / PLEURA: The interstitial edema shows slight worsening. Right upper lobe volume loss has impro lalo however. There is also worsening at the left lung base with obscuration of left hemidiaphragm now seen. No pneumothorax. ADDITIONAL FINDINGS: No significant additional findings. IMPRESSION: 1 Overall interval worsening Signer Name: Andrez Ray MD Signed: 02/25/2019 3:22 AM Workstation Name: [employer]
[2019-02-25] MEDS: IPRATROPIUM/ALBUTEROL SULFATE 3 ML AMPUL.NEB IH SCH ×3 (08:03→19:37)
[2019-02-25] MEDS: ACETYLCYSTEINE 20% 200 MG/1 ML *FOR INHALATION USE INHALATION SCH ×2 (08:03→19:37)
[2019-02-25] MEDS: FAMOTIDINE 20 MG TAB PO SCH (09:33)
[2019-02-25] MEDS: METOPROLOL TARTRATE 25 MG TAB PO SCH ×3 (09:33→21:27)
[2019-02-25] MEDS: ENOXAPARIN 30 MG/0.3 ML INJ SUB-Q SCH (09:41)
--- NOTE | 2019-02-25 09:43 | Progress Note ---
Assessment and Plan Acute respiratory failure Intubated. Chest CTA 02/22/2019 showed mod right and small left pleural effusions, large portions of RUL and both lower lobes collapsed. CXR this AM showed RUL volume loss improvement, no pneumothorax. Pulmonary following. Altered mental status Head CT with no acute findings. NSTEMI type II Chronically elevated Malika. Permanent atrial fibrillation and atrial flutter Currently with HR 80s - 100s. Cont lopressor. No long-term AC in setting of dementia, anemia, thrombocytopenia, and multiple co-morbidities. Loop recorder in situ Cardiomyopathy - EF 35-40% No current clinical evidence of acutely decompensated HF. Echo done 12/16/2018 showed EF 35-40%, mild LVH, RV systolic function mod reduced, RA mildly dilated, pulm HTN with RVSP 53mmHg, large pleural effusion, markedly increased RA pressure. Cont lopressor. Consider addition of ACEI/ARB when BPs permit and if okay per nephrology. ESRD on HD Nephrology following. Hypokalemia Replete PRN. Anemia Chronic. Monitor CBC. Elevated DDimer Chest CTA negative for PE HTN HLP DM ? H/o CVA / PEG tube in situ Unstageable sacral ulcer with osteomyelitis, status post debridement Legally blind Schizophrenia The patient has been seen in conjunction with Dr. Woodall who agrees with the assessment and plan of care. Subjective Date of service: 02/25/19 Principal diagnosis: respiratory failure Interval history: pt resting in bed, remains intubated. in AFib/AFlutter on telemetry with HR 80s. no family at bedside. Objective Last Vital Signs Temp 98.8 F 02/25/19 08:00 Pulse 108 H 02/25/19 09:33 Resp 22 02/25/19 09:00 BP 132/78 02/25/19 09:33 Pulse Ox 100 02/25/19 09:00 - Physical Examination General: Other (intubated) HEENT: Positive: PERRL, EOMI Neck: Positive: neck supple, trachea midline, Other (right IJ PermCath in place). Negative: JVD/HJR, Masses Cardiac: Positive: irregularly irregular, S1/S2 Lungs: Positive: Ventilated Respirations Neuro: Positive: Other (intubated) Abdomen: Positive: Unremarkable Extremities: Absent: edema - Imaging and Cardiology EKG: report reviewed, image reviewed Echo: report reviewed (Echo done 12/16/2018 showed EF 35-40%, mild LVH, RV systolic function mod reduced, RA mildly dilated, pulm HTN with RVSP 53mmHg, large pleural )
--- NOTE | 2019-02-25 13:17 | Progress Note ---
Assessment and Plan Imp: 1. Acute encephalopathy, probably metabolic or toxic 2. A/C systolic CHF 3. Dilated CMP 4. Pulm HTN 5. ESRD 6. RUL atelectasis, probably mucous plugging Rec: 1. CHF worse again on today's CXR -> volume removal/optimization with HD; chest PT with vest, scheduled mucinex per PEG, Duonebs TID, and Mucomyst nebs BID -> atelectasis better 2. Daily PSV; he does not need any more sedation so Ativan was discontinued 3. Avoid sedatives 4. DVT and GI PPx 5. TFs per PEG -> try to get to goal; blood sugars are better 6. Vascular eval. done re: LUE AV graft, see note 7. Further plans pending clinical course CCT 31 minutes No family present Subjective Date of service: 02/25/19 Principal diagnosis: respiratory failure Interval history: No events. More arousable & will follow basic commands. On Ventilator. Unable to give history. Failed PSV trials with TV below 250mL. Off sedation. Active Medications Acetaminophen (Tylenol) 650 mg PO Q4H PRN PRN Reason: Pain MILD(1-3)/Fever >100.5/HILL Acetylcysteine (Mucomyst Inhalation) 200 mg INHALATION Q12HRT [facility] Last Admin: 02/25/19 08:03 Dose: 200 mg Documented by: Albuterol/Ipratropium (Duoneb *Not For Prn Use*) 1 ampul IH TIDRT [facility] Last Admin: 02/25/19 13:41 Dose: 1 ampul Documented by: Lipase/Protease/Amylase ([place] 10,500 Unit) 1 each FEEDTUBE PRN PRN PRN Reason: For Clogged Feeding Tube Dextrose (D50w (25gm) Syringe) 50 ml IV PRN PRN PRN Reason: Hypoglycemia Last Admin: 02/23/19 14:51 Dose: 50 ml Documented by: Enoxaparin Sodium (Lovenox) 30 mg SUB-Q QDAY [facility] Last Admin: 02/25/19 09:41 Dose: 30 mg Documented by: Famotidine (Pepcid) 20 mg PO DAILY [facility] Last Admin: 02/25/19 09:33 Dose: 20 mg Documented by: Guaifenesin (Robitussin) 200 mg PO Q4HR [facility] Last Admin: 02/25/19 09:33 Dose: 200 mg Documented by: Hydrophilic Ointment (Vaseline Lip Therapy) 1 applic TP Q2HR PRN PRN Reason: Dry Lips Sodium Chloride (Nacl 0.9%) 100 mls @ 999 mls/hr IV UMA PRN PRN Reason: Hypotension Insulin Human Regular (Humulin R) 0 units SUB-Q Q4HR [facility]; Protocol Last Admin: 02/25/19 14:14 Dose: Not Given Documented by: Metoprolol Tartrate (Lopressor) 25 mg PO TID [facility] Multi-Ingred Cream/Lotion/Oil/Oint (Artificial Tears Ophth Oint) 1 applic OU Q4HR PRN PRN Reason: Dry Eye(s) Ondansetron HCl (Zofran) 4 mg IV Q8H PRN PRN Reason: Nausea And Vomiting Risperidone (Risperdal) 1 mg PO DAILY [facility] Sertraline HCl (Zoloft) 100 mg PO DAILY [facility] Simple Syrup (Simple Syrup) 15 ml FEEDTUBE PRN PRN PRN Reason: Hypoglycemia Simple Syrup (Simple Syrup) 30 ml FEEDTUBE PRN PRN PRN Reason: Hypoglycemia Sodium Bicarbonate (Sodium Bicarbonate) 325 mg FEEDTUBE PRN PRN PRN Reason: For Clogged Feeding Tube Sodium Chloride (Sodium Chloride Flush Syringe 10 Ml) 10 ml IV BID [facility] Last Admin: 02/25/19 09:34 Dose: 10 ml Documented by: Sodium Chloride (Sodium Chloride Flush Syringe 10 Ml) 10 ml IV PRN PRN PRN Reason: LINE FLUSH Last Admin: 02/24/19 22:00 Dose: 10 ml Documented by: Objective Vital Signs - 12hr 02/25/19 02/25/19 02/25/19 02:00 03:00 03:28 Temperature Pulse Rate 107 H 106 H 80 Pulse Rate [ Anterior Bilateral Throughout] Pulse Rate [ From Monitor] Pulse Rate [ Right Posterior Tibial] Pulse Rate [ Throughout] Respiratory 17 17 Rate Respiratory Rate [Anterior Bilateral Throughout] Respiratory Rate [ Throughout] Blood Pressure 127/82 113/86 113/86 O2 Sat by Pulse 100 98 100 Oximetry 02/25/19 02/25/19 02/25/19 04:00 05:00 06:00 Temperature 98.8 F Pulse Rate 80 107 H 81 Pulse Rate [ Anterior Bilateral Throughout] Pulse Rate [ 80 From Monitor] Pulse Rate [ 80 Right Posterior Tibial] Pulse Rate [ Throughout] Respiratory 16 19 11 L Rate Respiratory Rate [Anterior Bilateral Throughout] Respiratory Rate [ Throughout] Blood Pressure 120/66 139/82 O2 Sat by Pulse 100 99 100 Oximetry 02/25/19 02/25/19 02/25/19 07:00 08:00 08:04 Temperature 98.8 F Pulse Rate 92 H 107 H 81 Pulse Rate [ Anterior Bilateral Throughout] Pulse Rate [ 107 H From Monitor] Pulse Rate [ Right Posterior Tibial] Pulse Rate [ Throughout] Respiratory 13 24 Rate Respiratory Rate [Anterior Bilateral Throughout] Respiratory Rate [ Throughout] Blood Pressure 127/71 132/81 132/81 O2 Sat by Pulse 100 100 100 Oximetry 02/25/19 02/25/19 02/25/19 08:25 09:00 09:33 Temperature Pulse Rate 107 H 108 H Pulse Rate [ 106 H Anterior Bilateral Throughout] Pulse Rate [ From Monitor] Pulse Rate [ Right Posterior Tibial] Pulse Rate [ 81 Throughout] Respiratory 22 Rate Respiratory 20 Rate [Anterior Bilateral Throughout] Respiratory 20 Rate [ Throughout] Blood Pressure 132/78 132/78 O2 Sat by Pulse 100 Oximetry 02/25/19 02/25/19 02/25/19 10:00 11:00 11:34 Temperature Pulse Rate 81 81 81 Pulse Rate [ Anterior Bilateral Throughout] Pulse Rate [ From Monitor] Pulse Rate [ Right Posterior Tibial] Pulse Rate [ Throughout] Respiratory 18 20 Rate Respiratory Rate [Anterior Bilateral Throughout] Respiratory Rate [ Throughout] Blood Pressure 122/86 109/58 109/58 O2 Sat by Pulse 100 100 100 Oximetry 02/25/19 12:00 Temperature 98.6 F Pulse Rate Pulse Rate [ Anterior Bilateral Throughout] Pulse Rate [ From Monitor] Pulse Rate [ Right Posterior Tibial] Pulse Rate [ Throughout] Respiratory Rate Respiratory Rate [Anterior Bilateral Throughout] Respiratory Rate [ Throughout] Blood Pressure O2 Sat by Pulse Oximetry Constitutional: alert, other (critically ill on vent) Eyes: non-icteric Effort: normal Ascultation: Bilateral: other (coarse BS bilaterally) Percussion: Bilateral: not dull Cardiovascular: regular rate and rhythm (no mrg) Gastrointestinal: normoactive bowel sounds, soft, non-tender, non-distended Extremities: no edema, pink and warm Neurologic: other (somnolent, minimally arousable, squeezes with R and L hand and wiggles toes on command) Psychiatric: other (unable to assess) CBC and BMP: 02/24/19 04:55 02/24/19 04:55 ABG, PT/INR, D-dimer: ABG POC ABG pH 7.466 (7.35-7.45) H 02/25/19 04:45 POC ABG pCO2 38.2 (35-45) 02/25/19 04:45 POC ABG pO2 75 (80-105) L 02/25/19 04:45 POC ABG HCO3 27.5 (22-26 mml/L) 02/25/19 04:45 POC ABG Total CO2 29 (23-27mmol/L) 02/25/19 04:45 POC ABG O2 Sat 96 02/25/19 04:45 PT/INR, D-dimer 2987.82 ng/mlDDU (0-234) H 02/22/19 05:54 Abnormal lab findings: Abnormal Labs 02/21/19 02/21/19 02/21/19 18:30 18:30 18:30 RBC 3.26 L Hgb 8.8 L Hct 29.0 L MCH 27 L MCHC 30 L RDW 19.1 H Lymph % (Auto) 6.1 L Lymph # 0.4 L Seg Neutrophils % 86.2 H D-Dimer POC ABG pH POC ABG pCO2 POC ABG pO2 Sodium 133 L Potassium 3.3 L Chloride 93.1 L Carbon Dioxide 33 H BUN Creatinine Glucose 161 H POC Glucose Alkaline Phosphatase 136 H Total Creatine Kinase 37 L CK-MB (CK-2) Rel Index Troponin T 0.192 H* Albumin 2.4 L LDL Cholesterol Direct 36 L Salicylates Acetaminophen 02/21/19 02/21/19 02/21/19 18:42 20:04 20:04 RBC Hgb Hct MCH MCHC RDW Lymph % (Auto) Lymph # Seg Neutrophils % D-Dimer POC ABG pH POC ABG pCO2 56.7 H POC ABG pO2 291 H Sodium Potassium Chloride Carbon Dioxide BUN Creatinine Glucose POC Glucose Alkaline Phosphatase Total Creatine Kinase CK-MB (CK-2) Rel Index Troponin T Albumin LDL Cholesterol Direct Salicylates < 0.3 L Acetaminophen < 5.0 L 02/21/19 02/22/19 02/22/19 22:35 03:42 03:42 RBC 3.20 L Hgb 8.8 L Hct 27.6 L MCH MCHC RDW 18.9 H Lymph % (Auto) 7.4 L Lymph # 0.7 L Seg Neutrophils % 84.7 H D-Dimer POC ABG pH POC ABG pCO2 POC ABG pO2 Sodium 134 L Potassium 2.6 L* D Chloride Carbon Dioxide BUN Creatinine Glucose POC Glucose Alkaline Phosphatase Total Creatine Kinase CK-MB (CK-2) Rel Index 5.2 H Troponin T 0.202 H* Albumin LDL Cholesterol Direct Salicylates Acetaminophen 02/22/19 02/22/19 02/22/19 03:42 05:54 09:04 RBC Hgb Hct MCH MCHC RDW Lymph % (Auto) Lymph # Seg Neutrophils % D-Dimer 2987.82 H POC ABG pH 7.451 H POC ABG pCO2 POC ABG pO2 Sodium Potassium Chloride Carbon Dioxide BUN Creatinine Glucose POC Glucose Alkaline Phosphatase Total Creatine Kinase CK-MB (CK-2) Rel Index 5.7 H Troponin T 0.193 H* Albumin LDL Cholesterol Direct Salicylates Acetaminophen 02/22/19 02/22/19 02/23/19 10:36 23:56 00:52 RBC Hgb Hct MCH MCHC RDW Lymph % (Auto) Lymph # Seg Neutrophils % D-Dimer POC ABG pH POC ABG pCO2 POC ABG pO2 Sodium Potassium 3.1 L Chloride Carbon Dioxide BUN Creatinine Glucose POC Glucose 58 L 111 H Alkaline Phosphatase Total Creatine Kinase CK-MB (CK-2) Rel Index Troponin T Albumin LDL Cholesterol Direct Salicylates Acetaminophen 02/23/19 02/23/19 02/23/19 05:00 06:35 14:26 RBC Hgb Hct MCH MCHC RDW Lymph % (Auto) Lymph # Seg Neutrophils % D-Dimer POC ABG pH POC ABG pCO2 POC ABG pO2 Sodium 135 L Potassium 3.1 L Chloride Carbon Dioxide BUN 21 H Creatinine 2.0 H Glucose 57 L POC Glucose 64 L 62 L Alkaline Phosphatase Total Creatine Kinase CK-MB (CK-2) Rel Index Troponin T Albumin LDL Cholesterol Direct Salicylates Acetaminophen 02/24/19 02/24/19 02/24/19 02:11 04:12 04:55 RBC 2.84 L Hgb 7.8 L Hct 24.5 L MCH MCHC RDW 19.5 H Lymph % (Auto) Lymph # Seg Neutrophils % D-Dimer POC ABG pH 7.511 H POC ABG pCO2 33.9 L POC ABG pO2 62 L Sodium Potassium Chloride Carbon Dioxide BUN Creatinine Glucose POC Glucose 69 L Alkaline Phosphatase Total Creatine Kinase CK-MB (CK-2) Rel Index Troponin T Albumin LDL Cholesterol Direct Salicylates Acetaminophen 02/24/19 02/24/19 02/25/19 04:55 05:41 04:45 RBC Hgb Hct MCH MCHC RDW Lymph % (Auto) Lymph # Seg Neutrophils % D-Dimer POC ABG pH 7.466 H POC ABG pCO2 POC ABG pO2 75 L Sodium Potassium Chloride Carbon Dioxide BUN Creatinine 1.8 H Glucose 73 L POC Glucose 127 H Alkaline Phosphatase Total Creatine Kinase CK-MB (CK-2) Rel Index Troponin T Albumin LDL Cholesterol Direct Salicylates Acetaminophen Chest x-ray: report reviewed, image reviewed (RUL atelectasis resolved but volume overload again)
--- NOTE | 2019-02-25 13:59 | Progress Note ---
Subjective Principal diagnosis: respiratory failure Interval history: Patient was seen today for follow-up on multiple renal related issues Patient has had hemodialysis treatment yesterday Status post vascular evaluation Interdisciplinary notes were also reviewed Vitals intake output medications were reviewed Past medical history: Reviewed Family, social history: Reviewed Allergies: Reviewed Physical examination General: No acute distress Vitals: Reviewed HEENT: Oral mucosa moist no icterus Neck: Supple no thyromegaly nodular mass or JVD Central venous catheter site unremarkable Chest: Clear to auscultation anteriorly Heart: Regular rate and rhythm S1-S2 heard no S3-S4 Abdomen: Soft nontender no suprapubic masses no organomegaly Extremity: Dry skin less than 1+ edema AV graft: Palpable thrill Psych: No evidence of any agitation and aggression noted Derm: No petechial rash Assessment and plan: End stage renal disease: Patient will continue with hemodialysis on, Saturday and Saturday schedule, Will continue with hemodialysis only as tolerated Close monitoring on hemodynamics Encephalopathy: This fluctuates overtime, currently being followed by primary team Cardiomyopathy history of systolic heart failure/pulmonary hypertension/ Supportive care to continue Status post vascular surgery evaluation, plan is to cannulate the left upper arm graft If there is any problem patient will need a fistulogram, vascular input appreciated Anemia and end-stage renal disease: To monitor , will give weekly erythropoietin 40,000 Secondary hyperparathyroidism: Periodically check vitamin D and phosphorus level along with PTH Respiratory failure, was intubated upon arrival Hypertension and volume: To monitor and follow low systolic blood pressure under 150, Nutrition: High-protein diet due to dialysis status, as tolerated Chest x-ray unremarkable, blood culture has been negative Comorbidities including blindness, stroke, congestive heart failure, ICD, loop recorder B disease, decubitus ulcer at his post colostomy Prognosis long-term very poor We'll continue to follow and make recommendation from renal standpoint Objective - Vital Signs Vital signs: Vital Signs - 12hr 02/25/19 02/25/19 02/25/19 02:00 03:00 03:28 Temperature Pulse Rate 107 H 106 H 80 Pulse Rate [ Anterior Bilateral Throughout] Pulse Rate [ From Monitor] Pulse Rate [ Right Posterior Tibial] Pulse Rate [ Throughout] Respiratory 17 17 Rate Respiratory Rate [Anterior Bilateral Throughout] Respiratory Rate [ Throughout] Blood Pressure 127/82 113/86 113/86 O2 Sat by Pulse 100 98 100 Oximetry 02/25/19 02/25/19 02/25/19 04:00 05:00 06:00 Temperature 98.8 F Pulse Rate 80 107 H 81 Pulse Rate [ Anterior Bilateral Throughout] Pulse Rate [ 80 From Monitor] Pulse Rate [ 80 Right Posterior Tibial] Pulse Rate [ Throughout] Respiratory 16 19 11 L Rate Respiratory Rate [Anterior Bilateral Throughout] Respiratory Rate [ Throughout] Blood Pressure 120/66 139/82 O2 Sat by Pulse 100 99 100 Oximetry 02/25/19 02/25/19 02/25/19 07:00 08:00 08:04 Temperature 98.8 F Pulse Rate 92 H 107 H 81 Pulse Rate [ Anterior Bilateral Throughout] Pulse Rate [ 107 H From Monitor] Pulse Rate [ Right Posterior Tibial] Pulse Rate [ Throughout] Respiratory 13 24 Rate Respiratory Rate [Anterior Bilateral Throughout] Respiratory Rate [ Throughout] Blood Pressure 127/71 132/81 132/81 O2 Sat by Pulse 100 100 100 Oximetry 02/25/19 02/25/19 02/25/19 08:25 09:00 09:33 Temperature Pulse Rate 107 H 108 H Pulse Rate [ 106 H Anterior Bilateral Throughout] Pulse Rate [ From Monitor] Pulse Rate [ Right Posterior Tibial] Pulse Rate [ 81 Throughout] Respiratory 22 Rate Respiratory 20 Rate [Anterior Bilateral Throughout] Respiratory 20 Rate [ Throughout] Blood Pressure 132/78 132/78 O2 Sat by Pulse 100 Oximetry 02/25/19 02/25/19 02/25/19 10:00 11:00 11:34 Temperature Pulse Rate 81 81 81 Pulse Rate [ Anterior Bilateral Throughout] Pulse Rate [ From Monitor] Pulse Rate [ Right Posterior Tibial] Pulse Rate [ Throughout] Respiratory 18 20 Rate Respiratory Rate [Anterior Bilateral Throughout] Respiratory Rate [ Throughout] Blood Pressure 122/86 109/58 109/58 O2 Sat by Pulse 100 100 100 Oximetry 02/25/19 02/25/19 02/25/19 12:00 13:00 13:48 Temperature 98.6 F Pulse Rate 90 80 Pulse Rate [ 101 H Anterior Bilateral Throughout] Pulse Rate [ From Monitor] Pulse Rate [ Right Posterior Tibial] Pulse Rate [ 80 Throughout] Respiratory 21 18 Rate Respiratory 20 Rate [Anterior Bilateral Throughout] Respiratory 19 Rate [ Throughout] Blood Pressure 113/70 112/65 O2 Sat by Pulse 100 100 Oximetry - Lab 02/24/19 04:55 02/24/19 04:55 Most recent lab results Calcium 9.7 mg/dL (8.4-10.2) 02/24/19 04:55 Magnesium 2.20 mg/dL (1.7-2.3) 02/21/19 18:30 Medications & Allergies - Medications Allergies/Adverse Reactions: Allergies haloperidol [From Haldol] Adverse Reaction (Verified 03/13/18 12:10) Unknown haloperidol lactate [From Haldol] Adverse Reaction (Verified 03/13/18 12:10) Unknown Home Medications: Home Medications Medication Instructions Recorded Confirmed Last Taken Type risperiDONE [RisperDAL] 1 mg PO QAM 03/13/18 02/21/19 Unknown History Sertraline [Zoloft] 100 mg PO QDAY 08/26/18 02/21/19 Unknown History Polyethylene Glycol 3350 [Miralax 17 gm PO QDAY #30 packet 11/05/18 02/21/19 Unknown Rx 3350] Aspirin EC 81 mg PO DAILY #30 11/19/18 02/21/19 Unknown Rx Docusate Sodium [Colace CAP] 100 mg PO BID #60 11/19/18 02/21/19 Unknown Rx Folic Acid [Folvite] 1 mg PO DAILY #30 tab 11/19/18 02/21/19 Unknown Rx Famotidine [Pepcid] 20 mg PO DAILY tablet 12/08/18 02/21/19 Unknown Rx Gabapentin [Neurontin] 100 mg PO QHS capsule 12/08/18 02/21/19 Unknown Rx Metoprolol [Lopressor TAB] 50 mg PO BID 30 Days tablet 12/08/18 02/21/19 Unknown Rx Sevelamer Carbonate [Renvela] 800 mg PO TIDWM tablet 12/08/18 02/21/19 Unknown Rx hydrALAZINE [Apresoline TAB] 100 mg PO Q8HR #120 tablet 12/08/18 02/21/19 Unknown Rx Acetaminophen [Acetaminophen TAB] 650 mg PO Q12H PRN 12/15/18 02/21/19 Unknown History Glucagon,Human Recombinant 1 mg IJ Q15MIN PRN 12/15/18 02/21/19 Unknown History [Glucagon Emergency Kit] Insulin Aspart [NovoLOG 100 See Protocol SQ QWEEK 12/15/18 02/21/19 Unknown History UNITS/ML VIAL] Active Medications: Generic Name Dose Route Start Last Admin Trade Name Freq PRN Reason Stop Dose Admin Acetaminophen 650 mg 02/21/19 22:19 Tylenol PO Q4H PRN Pain MILD(1-3)/Fever >100.5/HILL Acetylcysteine 200 mg 02/24/19 20:00 02/25/19 08:03 Mucomyst Inhalation INHALATION 200 mg Q12HRT [facility] Administration Albuterol/Ipratropium 1 ampul 02/24/19 20:00 02/25/19 13:41 Duoneb *Not For Prn Use* IH 1 ampul TIDRT [facility] Administration Lipase/Protease/Amylase 1 each 02/23/19 15:09 Pancreaze 10,500 Unit FEEDTUBE PRN PRN For Clogged Feeding Tube Dextrose 50 ml 02/21/19 22:22 02/23/19 14:51 D50w (25gm) Syringe IV 50 ml PRN PRN Administration Hypoglycemia Enoxaparin Sodium 30 mg 02/23/19 10:00 02/25/19 09:41 Lovenox SUB-Q 30 mg QDAY [facility] Administration Famotidine 20 mg 02/23/19 10:00 02/25/19 09:33 Pepcid PO 20 mg DAILY [facility] Administration Guaifenesin 200 mg 02/24/19 16:00 02/25/19 09:33 Robitussin PO 200 mg Q4HR [facility] Administration Hydrophilic Ointment 1 applic 02/21/19 18:24 Vaseline Lip Therapy TP Q2HR PRN Dry Lips Sodium Chloride 100 mls @ 999 mls/hr 02/23/19 11:15 Nacl 0.9% IV UMA PRN Hypotension Insulin Human Regular 0 units 02/23/19 02:00 02/25/19 09:34 Humulin R SUB-Q Not Given Q4HR [facility] Protocol Metoprolol Tartrate 25 mg 02/25/19 14:00 Lopressor PO TID [facility] Multi-Ingred Cream/Lotion/Oil/Oint 1 applic 02/21/19 18:24 Artificial Tears Ophth Oint OU Q4HR PRN Dry Eye(s) Ondansetron HCl 4 mg 02/21/19 22:19 Zofran IV Q8H PRN Nausea And Vomiting Risperidone 1 mg 02/25/19 13:00 Risperdal PO DAILY [facility] Sertraline HCl 100 mg 02/25/19 13:00 Zoloft PO DAILY [facility] Simple Syrup 15 ml 08/05/19 15:09 Simple Syrup FEEDTUBE PRN PRN Hypoglycemia Simple Syrup 30 ml 02/23/19 15:09 Simple Syrup FEEDTUBE PRN PRN Hypoglycemia Sodium Bicarbonate 325 mg 02/23/19 15:09 Sodium Bicarbonate FEEDTUBE PRN PRN For Clogged Feeding Tube Sodium Chloride 10 ml 02/22/19 10:00 02/25/19 09:34 Sodium Chloride Flush Syringe 10 Ml IV 10 ml BID [facility] Administration Sodium Chloride 10 ml 02/21/19 22:19 02/24/19 22:00 Sodium Chloride Flush Syringe 10 Ml IV 10 ml PRN PRN Administration LINE FLUSH
--- NOTE | 2019-02-25 17:25 | Progress Note ---
Assessment and Plan Assessment and plan: Patient is 63-year-old man with a history of end-stage renal disease on dialysis Saturday, , Saturday, diabetes, anemia, schizophrenia, hypertension, afib, blind in the left eye, hyperparathyroidism, sacral ulcers, osteomyelitis was brought to the hospital for respiratory distress. Patient became hypotensive after intubation in the emergency room. Still intubated, diagnosed with fluid overload,pleural effusion. Pulmonology, cardiology and Nephrology following. Acute respiratory failure on mechanical ventilator >96 hrs Intubated, Pulm consulted weaning trial VAP BUNDLE ASPIRATION BUNDLE Acute pulmonary edema, fluid overload on CXR Dialysis Dilated CMP Continue diuresis Acute encephalopathy, probably metabolic or toxic Continues on Mechanical ventilator. ESRD on hemodialysis nephrology following Vascular eval. done re: LUE AV graft, see note Bilateral pleural effusions Anticipate improvement with Permanent atrial fibrillation and flutter Not on anticoagulation because of anemia thrombocytopenia Diabetes mellitus type 2 Fingerstick Q4h NSTEMI type 2 Cardiology following Schizophrenia Legally blind supportive care hypertension Monitor BP Hypokalemia repeat in am Cardiomyiopathy EF 35-40% Pulmonary hypertension Dysphagia s/p PEG tube Sacral decub ulcer Wound Nurse consulted History of sacral osteomyelitis and LE ulcers Completed Antibiotics Place on contact isolation for ESBL Klebsiella pneumonia on wound culture 01/02/19 Schizophrenia Pulm HTN RUL atelectasis, probably mucous plugging DVT prophylaxis Lovenox Full code status The high probability of a clinically significant, sudden or life threatening deterioration of the [pulmonary, neuro, renal] system(s) required my full and direct attention, intervention and personal management. The aggregate critical care time was [35] minutes. This time is in addition to time spent performing reported procedures but includes the following: [x] Data Review and interpretation [x] Patient assessment and monitoring of vital signs [] Documentation [x] Medication orders and management ? H/o CVA / PEG tube in situ Unstageable sacral ulcer with osteomyelitis, status post debridement Legally blind Schizophrenia History Interval history: Patient seen and examined remains intubated, no new complaints. Not tolerating weaning trials. Hospitalist Physical - Physical exam Narrative exam: Gen: Not in acute distress, lying in bed, intubated HEENT: Normocephalic, atraumatic Neck: supple, no JVD Heart: S1 and S2 irreg, no murmurs, rubs or gallop Lungs: Bilateral crackles, no wheeze Abd: soft, non tender, non distended, normal BS, PRG tube, wound dressing in place. Ext: No edema, no clubbing, no cyanosis, ulcer left 5th finger, echymosis Neuro: Intubated MSK: Sacral wound - Constitutional Vitals: Temp Pulse Resp BP Pulse Ox 98.6 F 81 17 123/69 100 02/25/19 14:00 02/25/19 17:15 02/25/19 16:00 02/25/19 17:15 02/25/19 16:00 General appearance: Present: no acute distress Results - Labs CBC & Chem 7: 02/24/19 04:55 02/24/19 04:55 Labs: Laboratory Last Values WBC 9.0 K/mm3 (4.5-11.0) 02/24/19 04:55 RBC 2.84 M/mm3 (3.65-5.03) L 02/24/19 04:55 Hgb 7.8 gm/dl (11.8-15.2) L 02/24/19 04:55 Hct 24.5 % (35.5-45.6) L 02/24/19 04:55 MCV 86 fl (84-94) 02/24/19 04:55 MCH 28 pg (28-32) 02/24/19 04:55 MCHC 32 % (32-34) 02/24/19 04:55 RDW 19.5 % (13.2-15.2) H 02/24/19 04:55 Plt Count 278 K/mm3 (140-440) 02/24/19 04:55 Lymph % (Auto) 7.4 % (13.4-35.0) L 02/22/19 03:42 [place] % (Auto) 5.4 % (0.0-7.3) 02/22/19 03:42 Eos % (Auto) 1.7 % (0.0-4.3) 02/22/19 03:42 Baso % (Auto) 0.8 % (0.0-1.8) 02/22/19 03:42 Lymph # 0.7 K/mm3 (1.2-5.4) L 02/22/19 03:42 [place] # 0.5 K/mm3 (0.0-0.8) 02/22/19 03:42 Eos # 0.2 K/mm3 (0.0-0.4) 02/22/19 03:42 Baso # 0.1 K/mm3 (0.0-0.1) 02/22/19 03:42 Seg Neutrophils % 84.7 % (40.0-70.0) H 02/22/19 03:42 Seg Neutrophils # 7.6 K/mm3 (1.8-7.7) 02/22/19 03:42 APTT 33.7 Sec. (24.2-36.6) 02/21/19 18:30 2987.82 ng/mlDDU (0-234) H 02/22/19 05:54 POC ABG pH 7.466 (7.35-7.45) H 02/25/19 04:45 POC ABG pCO2 38.2 (35-45) 02/25/19 04:45 POC ABG pO2 75 (80-105) L 02/25/19 04:45 POC ABG HCO3 27.5 (22-26 mml/L) 02/25/19 04:45 POC ABG Total CO2 29 (23-27mmol/L) 02/25/19 04:45 POC ABG O2 Sat 96 02/25/19 04:45 POC ABG Base Excess 4 ((-2) - (+3)mmol/L) 02/25/19 04:45 30 % 02/25/19 04:45 Sodium 141 mmol/L (137-145) 02/24/19 04:55 Potassium 3.8 mmol/L (3.6-5.0) D 02/24/19 04:55 Chloride 103.8 mmol/L (98-107) 02/24/19 04:55 Carbon Dioxide 28 mmol/L (22-30) 02/24/19 04:55 13 mmol/L 02/24/19 04:55 BUN 12 mg/dL (9-20) 02/24/19 04:55 1.8 mg/dL (0.8-1.5) H 02/24/19 04:55 Estimated GFR 46 ml/min 02/24/19 04:55 7 % 02/24/19 04:55 Glucose 73 mg/dL (75-100) L 02/24/19 04:55 POC Glucose 141 (70-105) H 02/25/19 16:34 Lactic Acid 1.00 mmol/L (0.7-2.0) 02/21/19 20:58 Calcium 9.7 mg/dL (8.4-10.2) 02/24/19 04:55 Magnesium 2.20 mg/dL (1.7-2.3) 02/21/19 18:30 0.20 mg/dL (0.1-1.2) 02/21/19 18:30 AST 17 units/L (5-40) 02/21/19 18:30 ALT 7 units/L (7-56) 02/21/19 18:30 136 units/L (35-129) H 02/21/19 18:30 28.0 umol/L (25-60) 02/21/19 20:04 64 units/L (55-170) 02/22/19 03:42 CK-MB (CK-2) 3.7 ng/mL (0.0-4.0) 02/22/19 03:42 CK-MB (CK-2) Rel Index 5.7 (0-4) H 02/22/19 03:42 0.193 ng/mL (0.00-0.029) H* 02/22/19 03:42 6.7 g/dL (6.3-8.2) 02/21/19 18:30 2.4 g/dL (3.9-5) L 02/21/19 18:30 0.6 % 02/21/19 18:30 Triglycerides 51 mg/dL (2-149) 02/21/19 18:30 Cholesterol 82 mg/dL (50-199) 02/21/19 18:30 36 mg/dL (50-130) L 02/21/19 18:30 40 mg/dL (40-59) 02/21/19 18:30 2.05 % 02/21/19 18:30 TSH 2.760 mlU/mL (0.270-4.200) 02/21/19 20:04 Salicylates < 0.3 mg/dL (2.8-20.0) L 02/21/19 20:04 Acetaminophen < 5.0 ug/mL (10.0-30.0) L 02/21/19 20:04 Hepatitis A IgM Ab Non-reactive (NonReactive) 02/23/19 11:20 Hep Bs Antigen Non-reactive (Negative) 02/23/19 11:20 Hep B Core IgM Ab Non-reactive (NonReactive) 02/23/19 11:20 Non-reactive (NonReactive) 02/23/19 11:20 Active Medications - Current Medications Current Medications: Generic Name Dose Route Start Last Admin Trade Name Freq PRN Reason Stop Dose Admin Acetaminophen 650 mg 02/21/19 22:19 Tylenol PO Q4H PRN Pain MILD(1-3)/Fever >100.5/[place] Acetylcysteine 200 mg 02/24/19 20:00 02/25/19 08:03 Mucomyst Inhalation INHALATION 200 mg Q12HRT [facility] Administration Albuterol/Ipratropium 1 ampul 02/24/19 20:00 02/25/19 13:41 Duoneb *Not For Prn Use* IH 1 ampul TIDRT [facility] Administration Lipase/Protease/Amylase 1 each 02/23/19 15:09 Pancreaze 10,500 Unit FEEDTUBE PRN PRN For Clogged Feeding Tube Dextrose 50 ml 02/21/19 22:22 02/23/19 14:51 D50w (25gm) Syringe IV 50 ml PRN PRN Administration Hypoglycemia Enoxaparin Sodium 30 mg 02/23/19 10:00 02/25/19 09:41 Lovenox SUB-Q 30 mg QDAY [facility] Administration Famotidine 20 mg 02/23/19 10:00 02/25/19 09:33 Pepcid PO 20 mg DAILY [facility] Administration Guaifenesin 200 mg 02/24/19 16:00 02/25/19 09:33 Robitussin PO 200 mg Q4HR [facility] Administration Hydrophilic Ointment 1 applic 02/21/19 18:24 Vaseline Lip Therapy TP Q2HR PRN Dry Lips Sodium Chloride 100 mls @ 999 mls/hr 02/23/19 11:15 Nacl 0.9% IV UMA PRN Hypotension Insulin Human Regular 0 units 02/23/19 02:00 02/25/19 14:14 Humulin R SUB-Q Not Given Q4HR [facility] Protocol Metoprolol Tartrate 25 mg 02/25/19 14:00 Lopressor PO TID [facility] Multi-Ingred Cream/Lotion/Oil/Oint 1 applic 02/21/19 18:24 Artificial Tears Ophth Oint OU Q4HR PRN Dry Eye(s) Ondansetron HCl 4 mg 02/21/19 22:19 Zofran IV Q8H PRN Nausea And Vomiting Risperidone 1 mg 02/25/19 13:00 Risperdal PO DAILY [facility] Sertraline HCl 100 mg 02/25/19 13:00 Zoloft PO DAILY [facility] Simple Syrup 15 ml 02/23/19 15:09 Simple Syrup FEEDTUBE PRN PRN Hypoglycemia Simple Syrup 30 ml 02/23/19 15:09 Simple Syrup FEEDTUBE PRN PRN Hypoglycemia Sodium Bicarbonate 325 mg 02/23/19 15:09 Sodium Bicarbonate FEEDTUBE PRN PRN For Clogged Feeding Tube Sodium Chloride 10 ml 02/22/19 10:00 02/25/19 09:34 Sodium Chloride Flush Syringe 10 Ml IV 10 ml BID [facility] Administration Sodium Chloride 10 ml 02/21/19 22:19 02/24/19 22:00 Sodium Chloride Flush Syringe 10 Ml IV 10 ml PRN PRN Administration LINE FLUSH Nutrition/Malnutrition Assess - Dietary Evaluation Nutrition/Malnutrition Findings: Nutrition Notes Start: 02/22/19 12:51 Freq: Status: Active Protocol: Document 02/23/19 14:52 RM (Rec: 02/23/19 15:09 RM [id number]) Nutrition Notes Initial or Follow up Reassessment Current Diagnosis Diabetes,Hypertension Other Pertinent Diagnosis Sacral PU, ESRD on HD (T/Thurs /Sat), Schizophrenia, Blind in L eye Current Diet NPO Labs/Tests K 3.1 Pertinent Medications Reviewed Height 5 ft 10 in Weight 88.7 kg [place] Body Weight (kg) 75.45 BMI 28.0 Weight change and time frame Noted wt loss. Likely d/t fluid change from HD. Subjective/Other Information Consulted for TF recommendation. Pt on vent and receiving HD at time of visit. 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 Burn Absent Trauma Absent #2 Nutrition Diagnosis Increased nutrient needs ( specify in comment below) Diagnosis Progress(for reassessment Continues documentation) #1 Nutrition Diagnosis Inadequate oral intake Diagnosis Progress(for reassessment Continues documentation) Is patient on ventilator? Yes Is Patient Ambulatory and/or Out of Bed No REE-([facility]-confined to bed) Calculation Used for Recommendations Kcal/kg Additional Notes Protein Needs: 106-177g (1.2- 2g/kg) Fluid Needs: 1 ml/kcal Nutrition Intervention Nutrition Support: Vital 1.2 at 70 ml/hr Water flush of 100 mls q 4 hrs Kcal 2,016 Protein (gm) 126 Fluid (mL) 1,362 Add Supplement/Snack (indicate name/kcal Abhilash BID /protein ) Provides kCal: 190 Provides Protein (gm) 5 Goal #1 TF tolerance Goal #2 Meet nutritional needs as best possible via TF Anticipated Discharge Needs: Unable to determine at this time Follow-Up By: 02/25/19 Additional Comments Follow for new TF
[2019-02-25] MEDS: SERTRALINE 100 MG TAB PO SCH (18:45)
[2019-02-25] MEDS: risperiDONE 1 MG TAB PO SCH (18:45)
[2019-02-26] MEDS: guaiFENesin 100 MG/5 ML ORAL LIQD PO SCH ×5 (02:00→22:08)
[2019-02-26] MEDS: INSULIN REGULAR, HUMAN 100 UNITS/1 ML SUB-Q SCH ×3 (02:00→18:28)
--- NOTE | 2019-02-26 03:08 | XRay Report ---
CHEST 1 VIEW INDICATION / CLINICAL INFORMATION: follow up respiratory failure. COMPARISON: 02/25/2019 FINDINGS: SUPPORT DEVICES: Lines and tubes are unchanged. Loop artery is seen over the left chest. HEART / MEDIASTINUM: No significant abnormality. LUNGS / PLEURA: Bilateral lung consolidation appears essentially unchanged. The right upper lobe volu me loss has resolved. No significant effusion. No pneumothorax. ADDITIONAL FINDINGS: Vascular stents are again seen in the left upper extremity presumably for dialys is fistula was. IMPRESSION: 1 No significant change Signer Name: Andrez Ray MD Signed: 02/26/2019 3:03 AM Workstation Name: [id number]
[2019-02-26 05:50] LABS: Hematocrit 25.8 % (35.5-45.6); Mean Corpuscular HGB Conc 31 % (32-34); Mean Corpuscular Volume 87 fl (84-94); Platelet Count 249 K/mm3 (140-440); Red Blood Count 2.96 M/mm3 (3.65-5.03)
[2019-02-26 06:09] LABS: Calcium 9.5 mg/dL (8.4-10.2)
--- NOTE | 2019-02-26 07:54 | Progress Note ---
Assessment and Plan Assessment and plan: Patient is a 63-year-old -[place] man from [facility] with a plethora of co-morbidities including blindness, CVA, CHF, PPM/ICD, loop recorder since 2012 that is MRI compatible, IDDM type 2, sepsis left foot ulcer, afib, ESRD with complications on HD TTS, hypertension, AOCD and GERD who presented to the ED with hypotensive after intubation in the emergency room. Still intubated, diagnosed with fluid overload, pleural effusion. Patient has had recurrent admission in the hospital for similar reason and was recently discharged from the hospital following treatment of Severe Sepsis due to Necrotizing Unstagable sacral decubitus ulcer with ostemomylitis, expected to complete abx on discharge till 02/16/19. Acute respiratory failure on mechanical ventilator >96 hrs Intubated, Pulm consulted weaning trial VAP BUNDLE ASPIRATION BUNDLE Acute pulmonary edema, fluid overload on CXR Dialysis Dilated CMP Continue diuresis Acute encephalopathy, probably metabolic or toxic Continues on Mechanical ventilator. ESRD on hemodialysis nephrology following Vascular eval. 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 -Pt is s/p x1 DDVAP RUL atelectasis, probably mucous plugging DVT prophylaxis Lovenox Full code status The high probability of a clinically significant, sudden or life threatening deterioration of the [pulmonary, neuro, renal] system(s) required my full and direct attention, intervention and personal management. The aggregate critical care time was [35] minutes. This time is in addition to time spent performing reported procedures but includes the following: [x] Data Review and interpretation [x] Patient assessment and monitoring of vital signs [] Documentation [x] Medication orders and management History Interval history: Patient seen and examined remains intubated, no new complaints. Not tolerating weaning trials. Hospitalist Physical - Physical exam Narrative exam: Gen: Not in acute distress, lying in bed, intubated HEENT: Normocephalic, atraumatic Neck: supple, no JVD Heart: S1 and S2 irreg, no murmurs, rubs or gallop Lungs: Bilateral crackles, no wheeze Abd: soft, non tender, non distended, normal BS, PRG tube, wound dressing in place. Ext: No edema, no clubbing, no cyanosis, ulcer left 5th finger, echymosis Neuro: Intubated MSK: Sacral wound - Constitutional Vitals: Temp Pulse Resp BP Pulse Ox 98.6 F 109 H 13 123/74 100 02/26/19 05:26 02/26/19 04:00 02/26/19 04:00 02/26/19 04:00 02/26/19 04:00 General appearance: Present: no acute distress Results - Labs CBC & Chem 7: 02/26/19 03:45 02/26/19 03:45 Labs: Laboratory Last Values WBC 8.4 K/mm3 (4.5-11.0) 02/26/19 03:45 RBC 2.96 M/mm3 (3.65-5.03) L 02/26/19 03:45 Hgb 8.0 gm/dl (11.8-15.2) L 02/26/19 03:45 Hct 25.8 % (35.5-45.6) L 02/26/19 03:45 MCV 87 fl (84-94) 02/26/19 03:45 MCH 27 pg (28-32) L 02/26/19 03:45 MCHC 31 % (32-34) L 02/26/19 03:45 RDW 20.0 % (13.2-15.2) H 02/26/19 03:45 Plt Count 249 K/mm3 (140-440) 02/26/19 03:45 Lymph % (Auto) 7.4 % (13.4-35.0) L 02/22/19 03:42 [place] % (Auto) 5.4 % (0.0-7.3) 02/22/19 03:42 Eos % (Auto) 1.7 % (0.0-4.3) 02/22/19 03:42 Baso % (Auto) 0.8 % (0.0-1.8) 02/22/19 03:42 Lymph # 0.7 K/mm3 (1.2-5.4) L 02/22/19 03:42 [place] # 0.5 K/mm3 (0.0-0.8) 02/22/19 03:42 Eos # 0.2 K/mm3 (0.0-0.4) 02/22/19 03:42 Baso # 0.1 K/mm3 (0.0-0.1) 02/22/19 03:42 Seg Neutrophils % 84.7 % (40.0-70.0) H 02/22/19 03:42 Seg Neutrophils # 7.6 K/mm3 (1.8-7.7) 02/22/19 03:42 APTT 33.7 Sec. (24.2-36.6) 02/21/19 18:30 2987.82 ng/mlDDU (0-234) H 02/22/19 05:54 POC ABG pH 7.470 (7.35-7.45) H 02/26/19 04:13 POC ABG pCO2 39.7 (35-45) 02/26/19 04:13 POC ABG pO2 80 (80-105) 02/26/19 04:13 POC ABG HCO3 28.9 (22-26 mml/L) 02/26/19 04:13 POC ABG Total CO2 30 (23-27mmol/L) 02/26/19 04:13 POC ABG O2 Sat 96 02/26/19 04:13 POC ABG Base Excess 5 ((-2) - (+3)mmol/L) 02/26/19 04:13 30 % 02/26/19 04:13 Sodium 139 mmol/L (137-145) 02/26/19 03:45 Potassium 3.9 mmol/L (3.6-5.0) 02/26/19 03:45 Chloride 101.2 mmol/L (98-107) 02/26/19 03:45 Carbon Dioxide 30 mmol/L (22-30) 02/26/19 03:45 12 mmol/L 02/26/19 03:45 BUN 13 mg/dL (9-20) 02/26/19 03:45 1.8 mg/dL (0.8-1.5) H 02/26/19 03:45 Estimated GFR 46 ml/min 02/26/19 03:45 7 % 02/26/19 03:45 Glucose 77 mg/dL (75-100) 02/26/19 03:45 POC Glucose 105 (70-105) 02/26/19 05:19 Lactic Acid 1.00 mmol/L (0.7-2.0) 02/21/19 20:58 Calcium 9.5 mg/dL (8.4-10.2) 02/26/19 03:45 Magnesium 2.20 mg/dL (1.7-2.3) 02/21/19 18:30 0.20 mg/dL (0.1-1.2) 02/21/19 18:30 AST 17 units/L (5-40) 02/21/19 18:30 ALT 7 units/L (7-56) 02/21/19 18:30 136 units/L (35-129) H 02/21/19 18:30 28.0 umol/L (25-60) 02/21/19 20:04 64 units/L (55-170) 02/22/19 03:42 CK-MB (CK-2) 3.7 ng/mL (0.0-4.0) 02/22/19 03:42 CK-MB (CK-2) Rel Index 5.7 (0-4) H 02/22/19 03:42 0.193 ng/mL (0.00-0.029) H* 02/22/19 03:42 6.7 g/dL (6.3-8.2) 02/21/19 18:30 2.4 g/dL (3.9-5) L 02/21/19 18:30 0.6 % 02/21/19 18:30 Triglycerides 51 mg/dL (2-149) 02/21/19 18:30 Cholesterol 82 mg/dL (50-199) 02/21/19 18:30 36 mg/dL (50-130) L 02/21/19 18:30 40 mg/dL (40-59) 02/21/19 18:30 2.05 % 02/21/19 18:30 TSH 2.760 mlU/mL (0.270-4.200) 02/21/19 20:04 Salicylates < 0.3 mg/dL (2.8-20.0) L 02/21/19 20:04 Acetaminophen < 5.0 ug/mL (10.0-30.0) L 02/21/19 20:04 Hepatitis A IgM Ab Non-reactive (NonReactive) 02/23/19 11:20 Hep Bs Antigen Non-reactive (Negative) 02/23/19 11:20 Hep B Core IgM Ab Non-reactive (NonReactive) 02/23/19 11:20 Non-reactive (NonReactive) 02/23/19 11:20 Active Medications - Current Medications Current Medications: Generic Name Dose Route Start Last Admin Trade Name Freq PRN Reason Stop Dose Admin Acetaminophen 650 mg 02/21/19 22:19 Tylenol PO Q4H PRN Pain MILD(1-3)/Fever >100.5/HILL Acetylcysteine 200 mg 02/24/19 20:00 02/25/19 19:37 Mucomyst Inhalation INHALATION 200 mg Q12HRT SANCHEZ Administration Albuterol/Ipratropium 1 ampul 02/24/19 20:00 02/25/19 19:37 Duoneb *Not For Prn Use* IH 1 ampul TIDRT SANCHEZ Administration Lipase/Protease/Amylase 1 each 02/23/19 15:09 Pancrejewel Barrientos 10,500 Unit FEEDTUBE PRN PRN For Clogged Feeding Tube Dextrose 50 ml 02/21/19 22:22 02/23/19 14:51 D50w (25gm) Syringe IV 50 ml PRN PRN Administration Hypoglycemia Enoxaparin Sodium 30 mg 02/23/19 10:00 02/25/19 09:41 Lovenox SUB-Q 30 mg QDAY SANCHEZ Administration Famotidine 20 mg 02/23/19 10:00 02/25/19 09:33 Pepcid PO 20 mg DAILY SANCHEZ Administration Guaifenesin 200 mg 02/24/19 16:00 02/26/19 02:00 Robitussin PO 200 mg Q4HR SANCHEZ Administration Hydrophilic Ointment 1 applic 02/21/19 18:24 Vaseline Lip Therapy TP Q2HR PRN Dry Lips Sodium Chloride 100 mls @ 999 mls/hr 02/23/19 11:15 Nacl 0.9% IV UMA PRN Hypotension Insulin Human Regular 0 units 02/23/19 02:00 02/26/19 02:00 Humulin R SUB-Q Not Given Q4HR [facility] Protocol Metoprolol Tartrate 25 mg 02/25/19 14:00 02/25/19 21:27 Lopressor PO 25 mg TID SANCHEZ Administration Multi-Ingred Cream/Lotion/Oil/Oint 1 applic 02/21/19 18:24 Artificial Tears Ophth Oint OU Q4HR PRN Dry Eye(s) Ondansetron HCl 4 mg 02/21/19 22:19 Zofran IV Q8H PRN Nausea And Vomiting Risperidone 1 mg 02/25/19 13:00 02/25/19 18:45 Risperdal PO 1 mg DAILY SANCHEZ Administration Sertraline HCl 100 mg 02/25/19 13:00 02/25/19 18:45 Zoloft PO 100 mg DAILY SANCHEZ Administration Simple Syrup 15 ml 02/23/19 15:09 Simple Syrup FEEDTUBE PRN PRN Hypoglycemia Simple Syrup 30 ml 02/23/19 15:09 Simple Syrup FEEDTUBE PRN PRN Hypoglycemia Sodium Bicarbonate 325 mg 02/23/19 15:09 Sodium Bicarbonate FEEDTUBE PRN PRN For Clogged Feeding Tube Sodium Chloride 10 ml 02/22/19 10:00 02/25/19 22:05 Sodium Chloride Flush Syringe 10 Ml IV 10 ml BID SANCHEZ Administration Sodium Chloride 10 ml 02/21/19 22:19 02/24/19 22:00 Sodium Chloride Flush Syringe 10 Ml IV 10 ml PRN PRN Administration LINE FLUSH Nutrition/Malnutrition Assess - Dietary Evaluation Nutrition/Malnutrition Findings: Nutrition Notes Start: 02/22/19 12:51 Freq: Status: Active Protocol: Document 02/25/19 17:54 RM (Rec: 02/25/19 17:55 RM [id number]) Nutrition Notes Initial or Follow up Brief Note Labs/Tests K 3.8 Subjective/Other Information Procedure being done in room at time of visit. Nutrition Intervention Follow-Up By: 02/26/19 Additional Comments Follow for new TF
[2019-02-26] MEDS: IPRATROPIUM/ALBUTEROL SULFATE 3 ML AMPUL.NEB IH SCH ×3 (08:30→19:44)
[2019-02-26] MEDS: ACETYLCYSTEINE 20% 200 MG/1 ML *FOR INHALATION USE INHALATION SCH ×2 (08:42→19:44)
--- NOTE | 2019-02-26 08:57 | Progress Note ---
Subjective Principal diagnosis: respiratory failure Interval history: Patient was seen today for follow-up on multiple renal related issues Patient has had hemodialysis treatment yesterday Currently has been on hemodialysis Saturday and Saturday Vitals intake output medications were reviewed Past medical history: Reviewed Family, social history: Reviewed Allergies: Reviewed Physical examination General: No acute distress Vitals: Reviewed HEENT: Oral mucosa moist no icterus Neck: Supple no thyromegaly nodular mass or JVD Central venous catheter site unremarkable Chest: Clear to auscultation anteriorly Heart: Regular rate and rhythm S1-S2 heard no S3-S4 Abdomen: Soft nontender no suprapubic masses no organomegaly Extremity: Dry skin less than 1+ edema AV graft: Palpable thrill Psych: No evidence of any agitation and aggression noted Derm: No petechial rash Assessment and plan: End stage renal disease: Patient will continue with hemodialysis on, Saturday and Saturday schedule, His graft should be used for hemodialysis, if working well central venous catheter can be removed Due to relatively low blood pressure will change dialysis prescription Increase dialysate sodium Adjust blood flow dialysate flow rate From dialysis perspective hemoglobin 8.0: Patient has been given erythropoietin already Respiratory failure, currently intubated/ pulmonary edema ultrafiltration only as tolerated Dilated cardiomyopathy, bilateral pleural effusion/ultrafiltration only as tolerated We'll closely monitor on hemodialysis and would like to discontinue there is any problem with hemodynamics Patient's overall prognosis is very poor, his mortality risk is very high due to his age, multiple comorbidities and dialysis status I believe the family conference would be helpful to define goals of care as the patient's prognosis is very poor quality of life is very poor and his mortality risk is very high Comorbidities including blindness, stroke, congestive heart failure, ICD, loop recorder B disease, decubitus ulcer at his post colostomy Prognosis long-term very poor We'll continue to follow and make recommendation from renal standpoint Objective - Vital Signs Vital signs: Vital Signs - 12hr 02/25/19 02/25/19 02/25/19 21:00 21:27 21:49 Temperature Pulse Rate 103 H 89 83 Pulse Rate [ Anterior Bilateral Throughout] Pulse Rate [ From Monitor] Pulse Rate [ Right Posterior Tibial] Respiratory 18 17 Rate Respiratory Rate [Anterior Bilateral Throughout] Blood Pressure 126/105 117/52 117/65 O2 Sat by Pulse 100 100 Oximetry 02/25/19 02/25/19 02/25/19 22:00 23:01 23:40 Temperature 98.7 F Pulse Rate 87 85 Pulse Rate [ Anterior Bilateral Throughout] Pulse Rate [ From Monitor] Pulse Rate [ Right Posterior Tibial] Respiratory 20 17 Rate Respiratory Rate [Anterior Bilateral Throughout] Blood Pressure 111/63 106/72 O2 Sat by Pulse 100 100 Oximetry 02/26/19 02/26/19 02/26/19 00:00 00:01 00:13 Temperature Pulse Rate 107 H 82 Pulse Rate [ Anterior Bilateral Throughout] Pulse Rate [ 82 From Monitor] Pulse Rate [ 82 Right Posterior Tibial] Respiratory 20 Rate Respiratory Rate [Anterior Bilateral Throughout] Blood Pressure 129/53 140/76 O2 Sat by Pulse 100 100 100 Oximetry 02/26/19 02/26/19 02/26/19 01:01 02:01 03:01 Temperature Pulse Rate 108 H 106 H 109 H Pulse Rate [ Anterior Bilateral Throughout] Pulse Rate [ From Monitor] Pulse Rate [ Right Posterior Tibial] Respiratory 17 15 13 Rate Respiratory Rate [Anterior Bilateral Throughout] Blood Pressure 140/67 118/77 114/90 O2 Sat by Pulse 100 100 96 Oximetry 02/26/19 02/26/19 02/26/19 04:00 05:01 05:26 Temperature 98.6 F 98.6 F Pulse Rate 82 100 H Pulse Rate [ Anterior Bilateral Throughout] Pulse Rate [ 82 From Monitor] Pulse Rate [ 82 Right Posterior Tibial] Respiratory 13 13 Rate Respiratory Rate [Anterior Bilateral Throughout] Blood Pressure 123/74 117/68 O2 Sat by Pulse 100 100 Oximetry 02/26/19 02/26/19 02/26/19 06:00 07:00 08:00 Temperature 98.9 F Pulse Rate 84 108 H 94 H Pulse Rate [ Anterior Bilateral Throughout] Pulse Rate [ From Monitor] Pulse Rate [ Right Posterior Tibial] Respiratory 16 10 L 19 Rate Respiratory Rate [Anterior Bilateral Throughout] Blood Pressure 114/65 131/86 109/63 O2 Sat by Pulse 100 100 98 Oximetry 02/26/19 08:31 Temperature Pulse Rate Pulse Rate [ 83 Anterior Bilateral Throughout] Pulse Rate [ From Monitor] Pulse Rate [ Right Posterior Tibial] Respiratory Rate Respiratory 24 Rate [Anterior Bilateral Throughout] Blood Pressure O2 Sat by Pulse Oximetry - Lab 02/26/19 03:45 02/26/19 03:45 Most recent lab results Calcium 9.5 mg/dL (8.4-10.2) 02/26/19 03:45 Magnesium 2.20 mg/dL (1.7-2.3) 02/21/19 18:30 Medications & Allergies - Medications Allergies/Adverse Reactions: Allergies haloperidol [From Haldol] Adverse Reaction (Verified 03/13/18 12:10) Unknown haloperidol lactate [From Haldol] Adverse Reaction (Verified 03/13/18 12:10) Unknown Home Medications: Home Medications Medication Instructions Recorded Confirmed Last Taken Type risperiDONE [RisperDAL] 1 mg PO QAM 03/13/18 02/21/19 Unknown History Sertraline [Zoloft] 100 mg PO QDAY 08/26/18 02/21/19 Unknown History Polyethylene Glycol 3350 [Miralax 17 gm PO QDAY #30 packet 11/05/18 02/21/19 Unknown Rx 3350] Aspirin EC 81 mg PO DAILY #30 11/19/18 02/21/19 Unknown Rx Docusate Sodium [Colace CAP] 100 mg PO BID #60 11/19/18 02/21/19 Unknown Rx Folic Acid [Folvite] 1 mg PO DAILY #30 tab 11/19/18 02/21/19 Unknown Rx Famotidine [Pepcid] 20 mg PO DAILY tablet 12/08/18 02/21/19 Unknown Rx Gabapentin [Neurontin] 100 mg PO QHS capsule 12/08/18 02/21/19 Unknown Rx Metoprolol [Lopressor TAB] 50 mg PO BID 30 Days tablet 12/08/18 02/21/19 Unknown Rx Sevelamer Carbonate [Renvela] 800 mg PO TIDWM tablet 12/08/18 02/21/19 Unknown Rx hydrALAZINE [Apresoline TAB] 100 mg PO Q8HR #120 tablet 12/08/18 02/21/19 Unknown Rx Acetaminophen [Acetaminophen TAB] 650 mg PO Q12H PRN 12/15/18 02/21/19 Unknown History Glucagon,Human Recombinant 1 mg IJ Q15MIN PRN 12/15/18 02/21/19 Unknown History [Glucagon Emergency Kit] Insulin Aspart [NovoLOG 100 See Protocol SQ QWEEK 12/15/18 02/21/19 Unknown History UNITS/ML VIAL] Active Medications: Generic Name Dose Route Start Last Admin Trade Name Freq PRN Reason Stop Dose Admin Acetaminophen 650 mg 02/21/19 22:19 Tylenol PO Q4H PRN Pain MILD(1-3)/Fever >100.5/HILL Acetylcysteine 200 mg 02/24/19 20:00 02/26/19 08:42 Mucomyst Inhalation INHALATION Not Given Q12HRT COUNT INCLUDES THE [facility] Albuterol/Ipratropium 1 ampul 02/24/19 20:00 02/26/19 08:30 Duoneb *Not For Prn Use* IH 1 ampul TIDRT SANCHEZ Administration Lipase/Protease/Amylase 1 each 02/23/19 15:09 Pancrejewel Barrientos 10,500 Unit FEEDTUBE PRN PRN For Clogged Feeding Tube Dextrose 50 ml 02/21/19 22:22 02/23/19 14:51 D50w (25gm) Syringe IV 50 ml PRN PRN Administration Hypoglycemia Enoxaparin Sodium 30 mg 02/23/19 10:00 02/25/19 09:41 Lovenox SUB-Q 30 mg QDAY COUNT INCLUDES THE [facility] Administration Famotidine 20 mg 02/23/19 10:00 02/25/19 09:33 Pepcid PO 20 mg DAILY COUNT INCLUDES THE [facility] Administration Guaifenesin 200 mg 02/24/19 16:00 02/26/19 02:00 Robitussin PO 200 mg Q4HR COUNT INCLUDES THE [facility] Administration Hydrophilic Ointment 1 applic 02/21/19 18:24 Vaseline Lip Therapy TP Q2HR PRN Dry Lips Sodium Chloride 100 mls @ 999 mls/hr 02/23/19 11:15 Nacl 0.9% IV UMA PRN Hypotension Sodium Chloride 100 mls @ 999 mls/hr 02/26/19 08:54 Nacl 0.9% IV UMA PRN Hypotension Insulin Human Regular 0 units 02/26/19 12:00 Humulin R SUB-Q Q6HR COUNT INCLUDES THE [facility] Protocol Metoprolol Tartrate 25 mg 02/25/19 14:00 02/25/19 21:27 Lopressor PO 25 mg TID COUNT INCLUDES THE [facility] Administration Multi-Ingred Cream/Lotion/Oil/Oint 1 applic 02/21/19 18:24 Artificial Tears Ophth Oint OU Q4HR PRN Dry Eye(s) Ondansetron HCl 4 mg 02/21/19 22:19 Zofran IV Q8H PRN Nausea And Vomiting Risperidone 1 mg 02/25/19 13:00 02/25/19 18:45 Risperdal PO 1 mg DAILY SANCHEZ Administration Sertraline HCl 100 mg 02/25/19 13:00 02/25/19 18:45 Zoloft PO 100 mg DAILY SANCHEZ Administration Simple Syrup 15 ml 02/23/19 15:09 Simple Syrup FEEDTUBE PRN PRN Hypoglycemia Simple Syrup 30 ml 02/23/19 15:09 Simple Syrup FEEDTUBE PRN PRN Hypoglycemia Sodium Bicarbonate 325 mg 02/23/19 15:09 Sodium Bicarbonate FEEDTUBE PRN PRN For Clogged Feeding Tube Sodium Chloride 10 ml 02/22/19 10:00 02/25/19 22:05 Sodium Chloride Flush Syringe 10 Ml IV 10 ml BID SANCHEZ Administration Sodium Chloride 10 ml 02/21/19 22:19 02/24/19 22:00 Sodium Chloride Flush Syringe 10 Ml IV 10 ml PRN PRN Administration LINE FLUSH
[2019-02-26] MEDS ORDERED: SODIUM CHLORIDE 0.9% 100 ML IV PRN (09:00)
[2019-02-26] MEDS: FAMOTIDINE 20 MG TAB PO SCH (09:38)
[2019-02-26] MEDS: SERTRALINE 100 MG TAB PO SCH (09:38)
[2019-02-26] MEDS: risperiDONE 1 MG TAB PO SCH (09:39)
[2019-02-26] MEDS: METOPROLOL TARTRATE 25 MG TAB PO SCH ×3 (09:39→22:07)
[2019-02-26] MEDS: ENOXAPARIN 30 MG/0.3 ML INJ SUB-Q SCH (09:39)
--- NOTE | 2019-02-26 10:22 | Progress Note ---
Assessment and Plan Acute respiratory failure Intubated. Pulmonary following. Altered mental status Head CT with no acute findings. NSTEMI type II Chronically elevated [place]. Permanent atrial fibrillation and atrial flutter Currently with CVR. Cont lopressor. No long-term AC in setting of dementia, anemia, thrombocytopenia, and multiple co-morbidities. Loop recorder in situ Cardiomyopathy - EF 35-40% No current clinical evidence of acutely decompensated HF. Echo done 12/16/2018 showed EF 35-40%, mild LVH, RV systolic function mod reduced, RA mildly dilated, pulm HTN with RVSP 53mmHg, large pleural effusion, markedly increased RA pressure. Cont lopressor. Consider addition of ACEI/ARB when BPs permit and if okay per nephrology. ESRD on HD Nephrology following. Hypokalemia Replete PRN. Anemia Chronic. Monitor CBC. Elevated DDimer Chest CTA negative for PE HTN HLP DM ? H/o CVA / PEG tube in situ Unstageable sacral ulcer with osteomyelitis, status post debridement Legally blind Schizophrenia Currently stable cardiac status. Cont present cardiac management. Will follow on as needed basis. The patient has been seen in conjunction with Dr. Woodall who agrees with the assessment and plan of care. Subjective Date of service: 02/26/19 Principal diagnosis: respiratory failure Interval history: pt resting in bed, remains intubated. in AFib/AFlutter on telemetry with HR 100s. no family at bedside. Objective Last Vital Signs Temp 98.9 F 02/26/19 08:00 Pulse 83 02/26/19 09:39 Resp 24 02/26/19 08:31 BP 134/74 02/26/19 09:39 Pulse Ox 98 02/26/19 08:00 - Physical Examination General: Other (intubated) HEENT: Positive: PERRL, EOMI Neck: Positive: neck supple, trachea midline, Other (right IJ PermCath in place). Negative: JVD/HJR, Masses Cardiac: Positive: irregularly irregular, S1/S2 Lungs: Positive: Decreased Breath Sounds Neuro: Positive: Other (intubated) Abdomen: Positive: Unremarkable Extremities: Absent: edema - Labs and Meds CBC 02/26/19 Range/Units 03:45 WBC 8.4 (4.5-11.0) K/mm3 RBC 2.96 L (3.65-5.03) M/mm3 Hgb 8.0 L (11.8-15.2) gm/dl Hct 25.8 L (35.5-45.6) % Plt Count 249 (140-440) K/mm3 Comprehensive Metabolic Panel 02/26/19 Range/Units 03:45 Sodium 139 (137-145) mmol/L Potassium 3.9 (3.6-5.0) mmol/L Chloride 101.2 (98-107) mmol/L Carbon Dioxide 30 (22-30) mmol/L BUN 13 (9-20) mg/dL Creatinine 1.8 H (0.8-1.5) mg/dL Glucose 77 (75-100) mg/dL Calcium 9.5 (8.4-10.2) mg/dL - Imaging and Cardiology EKG: report reviewed, image reviewed Echo: report reviewed (Echo done 12/16/2018 showed EF 35-40%, mild LVH, RV systolic function mod reduced, RA mildly dilated, pulm HTN with RVSP 53mmHg, large pleural )
--- NOTE | 2019-02-26 13:37 | Progress Note ---
Assessment and Plan Imp: 1. Acute encephalopathy, probably metabolic or toxic 2. A/C systolic CHF 3. Dilated CMP 4. Pulm HTN 5. ESRD 6. RUL atelectasis, probably mucous plugging Rec: 1. Chest PT with vest, scheduled mucinex per PEG, Duonebs TID, and Mucomyst nebs BID -> atelectasis better 2. Daily PSV; he does not need any more sedation so Ativan was discontinued 3. Avoid sedatives; resumed psych meds 4. DVT and GI PPx 5. TFs per PEG -> try to get to goal; blood sugars are better 6. Vascular eval. done re: LUE AV graft, see note 7. CXR suggests ongoing volume overload; would consider extra ultrafiltration sessions to facilitate possible ventilator weaning CCT 31 minutes No family present Subjective Date of service: 02/26/19 Principal diagnosis: respiratory failure Interval history: No events. More arousable & will follow basic commands. On Ventilator. Unable to give history. Failed PSV trials with tachypnea. Off sedation. Had HD yesterday. Active Medications Acetaminophen (Tylenol) 650 mg PO Q4H PRN PRN Reason: Pain MILD(1-3)/Fever >100.5/HILL Acetylcysteine (Mucomyst Inhalation) 200 mg INHALATION Q12HRT [facility] Last Admin: 02/26/19 08:42 Dose: Not Given Documented by: Albuterol/Ipratropium (Duoneb *Not For Prn Use*) 1 ampul IH TIDRT [facility] Last Admin: 02/26/19 15:26 Dose: 1 ampul Documented by: Lipase/Protease/Amylase (Mc Barrientos 10,500 Unit) 1 each FEEDTUBE PRN PRN PRN Reason: For Clogged Feeding Tube Dextrose (D50w (25gm) Syringe) 50 ml IV PRN PRN PRN Reason: Hypoglycemia Last Admin: 02/23/19 14:51 Dose: 50 ml Documented by: Enoxaparin Sodium (Lovenox) 30 mg SUB-Q QDAY [facility] Last Admin: 02/26/19 09:39 Dose: 30 mg Documented by: Famotidine (Pepcid) 20 mg PO DAILY [facility] Last Admin: 02/26/19 09:38 Dose: 20 mg Documented by: Guaifenesin (Robitussin) 200 mg PO Q4HR [facility] Last Admin: 02/26/19 15:00 Dose: 200 mg Documented by: Hydrophilic Ointment (Vaseline Lip Therapy) 1 applic TP Q2HR PRN PRN Reason: Dry Lips Sodium Chloride (Nacl 0.9%) 100 mls @ 999 mls/hr IV UMA PRN PRN Reason: Hypotension Insulin Human Regular (Humulin R) 0 units SUB-Q Q6HR [facility]; Protocol Last Admin: 02/26/19 12:00 Dose: Not Given Documented by: Metoprolol Tartrate (Lopressor) 25 mg PO TID [facility] Last Admin: 02/26/19 15:00 Dose: 25 mg Documented by: Multi-Ingred Cream/Lotion/Oil/Oint (Artificial Tears Ophth Oint) 1 applic OU Q4HR PRN PRN Reason: Dry Eye(s) Ondansetron HCl (Zofran) 4 mg IV Q8H PRN PRN Reason: Nausea And Vomiting Risperidone (Risperdal) 1 mg PO DAILY [facility] Last Admin: 02/26/19 09:39 Dose: 1 mg Documented by: Sertraline HCl (Zoloft) 100 mg PO DAILY [facility] Last Admin: 02/26/19 09:38 Dose: 100 mg Documented by: Simple Syrup (Simple Syrup) 15 ml FEEDTUBE PRN PRN PRN Reason: Hypoglycemia Simple Syrup (Simple Syrup) 30 ml FEEDTUBE PRN PRN PRN Reason: Hypoglycemia Sodium Bicarbonate (Sodium Bicarbonate) 325 mg FEEDTUBE PRN PRN PRN Reason: For Clogged Feeding Tube Sodium Chloride (Sodium Chloride Flush Syringe 10 Ml) 10 ml IV BID [facility] Last Admin: 02/26/19 09:40 Dose: 10 ml Documented by: Sodium Chloride (Sodium Chloride Flush Syringe 10 Ml) 10 ml IV PRN PRN PRN Reason: LINE FLUSH Last Admin: 02/24/19 22:00 Dose: 10 ml Documented by: Objective Vital Signs - 12hr 02/26/19 02/26/19 02/26/19 02:01 03:01 04:00 Temperature 98.6 F Pulse Rate 106 H 109 H 82 Pulse Rate [ Anterior Bilateral Throughout] Pulse Rate [ 82 From Monitor] Pulse Rate [ 82 Right Posterior Tibial] Respiratory 15 13 13 Rate Respiratory Rate [Anterior Bilateral Throughout] Blood Pressure 118/77 114/90 123/74 O2 Sat by Pulse 100 96 100 Oximetry 02/26/19 02/26/19 02/26/19 05:01 05:26 06:00 Temperature 98.6 F Pulse Rate 100 H 84 Pulse Rate [ Anterior Bilateral Throughout] Pulse Rate [ From Monitor] Pulse Rate [ Right Posterior Tibial] Respiratory 13 16 Rate Respiratory Rate [Anterior Bilateral Throughout] Blood Pressure 117/68 114/65 O2 Sat by Pulse 100 100 Oximetry 02/26/19 02/26/19 02/26/19 07:00 08:00 08:31 Temperature 98.9 F Pulse Rate 108 H 94 H Pulse Rate [ 83 Anterior Bilateral Throughout] Pulse Rate [ From Monitor] Pulse Rate [ Right Posterior Tibial] Respiratory 10 L 19 Rate Respiratory 24 Rate [Anterior Bilateral Throughout] Blood Pressure 131/86 109/63 O2 Sat by Pulse 100 98 Oximetry 02/26/19 02/26/19 02/26/19 09:01 09:39 10:00 Temperature Pulse Rate 93 H 83 111 H Pulse Rate [ Anterior Bilateral Throughout] Pulse Rate [ From Monitor] Pulse Rate [ Right Posterior Tibial] Respiratory 16 18 Rate Respiratory Rate [Anterior Bilateral Throughout] Blood Pressure 129/74 134/74 132/78 O2 Sat by Pulse 99 100 Oximetry 02/26/19 02/26/19 11:00 12:00 Temperature 98.2 F Pulse Rate 111 H 82 Pulse Rate [ Anterior Bilateral Throughout] Pulse Rate [ From Monitor] Pulse Rate [ Right Posterior Tibial] Respiratory 15 23 Rate Respiratory Rate [Anterior Bilateral Throughout] Blood Pressure 100/67 107/66 O2 Sat by Pulse 100 100 Oximetry Constitutional: alert, other (critically ill on vent) Eyes: non-icteric Effort: normal Ascultation: Bilateral: diminished breath sounds, other (coarse BS bilaterally) Percussion: Bilateral: not dull Cardiovascular: regular rate and rhythm (no mrg) Gastrointestinal: normoactive bowel sounds, soft, non-tender, non-distended Extremities: no edema, pink and warm Neurologic: other (somnolent, minimally arousable, squeezes with R and L hand and wiggles toes on command) Psychiatric: other (unable to assess) CBC and BMP: 02/26/19 03:45 02/26/19 03:45 ABG, PT/INR, D-dimer: ABG POC ABG pH 7.470 (7.35-7.45) H 02/26/19 04:13 POC ABG pCO2 39.7 (35-45) 02/26/19 04:13 POC ABG pO2 80 (80-105) 02/26/19 04:13 POC ABG HCO3 28.9 (22-26 mml/L) 02/26/19 04:13 POC ABG Total CO2 30 (23-27mmol/L) 02/26/19 04:13 POC ABG O2 Sat 96 02/26/19 04:13 PT/INR, D-dimer 2987.82 ng/mlDDU (0-234) H 02/22/19 05:54 Abnormal lab findings: Abnormal Labs 02/21/19 02/21/19 02/21/19 18:30 18:30 18:30 RBC 3.26 L Hgb 8.8 L Hct 29.0 L MCH 27 L MCHC 30 L RDW 19.1 H Lymph % (Auto) 6.1 L Lymph # 0.4 L Seg Neutrophils % 86.2 H D-Dimer POC ABG pH POC ABG pCO2 POC ABG pO2 Sodium 133 L Potassium 3.3 L Chloride 93.1 L Carbon Dioxide 33 H BUN Creatinine Glucose 161 H POC Glucose Alkaline Phosphatase 136 H Total Creatine Kinase 37 L CK-MB (CK-2) Rel Index Troponin T 0.192 H* Albumin 2.4 L LDL Cholesterol Direct 36 L Salicylates Acetaminophen 02/21/19 02/21/19 02/21/19 18:42 20:04 20:04 RBC Hgb Hct MCH MCHC RDW Lymph % (Auto) Lymph # Seg Neutrophils % D-Dimer POC ABG pH POC ABG pCO2 56.7 H POC ABG pO2 291 H Sodium Potassium Chloride Carbon Dioxide BUN Creatinine Glucose POC Glucose Alkaline Phosphatase Total Creatine Kinase CK-MB (CK-2) Rel Index Troponin T Albumin LDL Cholesterol Direct Salicylates < 0.3 L Acetaminophen < 5.0 L 02/21/19 02/22/19 02/22/19 22:35 03:42 03:42 RBC 3.20 L Hgb 8.8 L Hct 27.6 L MCH MCHC RDW 18.9 H Lymph % (Auto) 7.4 L Lymph # 0.7 L Seg Neutrophils % 84.7 H D-Dimer POC ABG pH POC ABG pCO2 POC ABG pO2 Sodium 134 L Potassium 2.6 L* D Chloride Carbon Dioxide BUN Creatinine Glucose POC Glucose Alkaline Phosphatase Total Creatine Kinase CK-MB (CK-2) Rel Index 5.2 H Troponin T 0.202 H* Albumin LDL Cholesterol Direct Salicylates Acetaminophen 02/22/19 02/22/19 02/22/19 03:42 05:54 09:04 RBC Hgb Hct MCH MCHC RDW Lymph % (Auto) Lymph # Seg Neutrophils % D-Dimer 2987.82 H POC ABG pH 7.451 H POC ABG pCO2 POC ABG pO2 Sodium Potassium Chloride Carbon Dioxide BUN Creatinine Glucose POC Glucose Alkaline Phosphatase Total Creatine Kinase CK-MB (CK-2) Rel Index 5.7 H Troponin T 0.193 H* Albumin LDL Cholesterol Direct Salicylates Acetaminophen 02/22/19 02/22/19 02/23/19 10:36 23:56 00:52 RBC Hgb Hct MCH MCHC RDW Lymph % (Auto) Lymph # Seg Neutrophils % D-Dimer POC ABG pH POC ABG pCO2 POC ABG pO2 Sodium Potassium 3.1 L Chloride Carbon Dioxide BUN Creatinine Glucose POC Glucose 58 L 111 H Alkaline Phosphatase Total Creatine Kinase CK-MB (CK-2) Rel Index Troponin T Albumin LDL Cholesterol Direct Salicylates Acetaminophen 02/23/19 02/23/19 02/23/19 05:00 06:35 14:26 RBC Hgb Hct MCH MCHC RDW Lymph % (Auto) Lymph # Seg Neutrophils % D-Dimer POC ABG pH POC ABG pCO2 POC ABG pO2 Sodium 135 L Potassium 3.1 L Chloride Carbon Dioxide BUN 21 H Creatinine 2.0 H Glucose 57 L POC Glucose 64 L 62 L Alkaline Phosphatase Total Creatine Kinase CK-MB (CK-2) Rel Index Troponin T Albumin LDL Cholesterol Direct Salicylates Acetaminophen 02/24/19 02/24/19 02/24/19 02:11 04:12 04:55 RBC 2.84 L Hgb 7.8 L Hct 24.5 L MCH MCHC RDW 19.5 H Lymph % (Auto) Lymph # Seg Neutrophils % D-Dimer POC ABG pH 7.511 H POC ABG pCO2 33.9 L POC ABG pO2 62 L Sodium Potassium Chloride Carbon Dioxide BUN Creatinine Glucose POC Glucose 69 L Alkaline Phosphatase Total Creatine Kinase CK-MB (CK-2) Rel Index Troponin T Albumin LDL Cholesterol Direct Salicylates Acetaminophen 02/24/19 02/24/19 02/25/19 04:55 05:41 04:45 RBC Hgb Hct MCH MCHC RDW Lymph % (Auto) Lymph # Seg Neutrophils % D-Dimer POC ABG pH 7.466 H POC ABG pCO2 POC ABG pO2 75 L Sodium Potassium Chloride Carbon Dioxide BUN Creatinine 1.8 H Glucose 73 L POC Glucose 127 H Alkaline Phosphatase Total Creatine Kinase CK-MB (CK-2) Rel Index Troponin T Albumin LDL Cholesterol Direct Salicylates Acetaminophen 02/25/19 02/25/19 02/26/19 16:34 21:33 03:45 RBC 2.96 L Hgb 8.0 L Hct 25.8 L MCH 27 L MCHC 31 L RDW 20.0 H Lymph % (Auto) Lymph # Seg Neutrophils % D-Dimer POC ABG pH POC ABG pCO2 POC ABG pO2 Sodium Potassium Chloride Carbon Dioxide BUN Creatinine Glucose POC Glucose 141 H 106 H Alkaline Phosphatase Total Creatine Kinase CK-MB (CK-2) Rel Index Troponin T Albumin LDL Cholesterol Direct Salicylates Acetaminophen 02/26/19 02/26/19 02/26/19 03:45 04:13 07:53 RBC Hgb Hct MCH MCHC RDW Lymph % (Auto) Lymph # Seg Neutrophils % D-Dimer POC ABG pH 7.470 H POC ABG pCO2 POC ABG pO2 Sodium Potassium Chloride Carbon Dioxide BUN Creatinine 1.8 H Glucose POC Glucose 110 H Alkaline Phosphatase Total Creatine Kinase CK-MB (CK-2) Rel Index Troponin T Albumin LDL Cholesterol Direct Salicylates Acetaminophen 02/26/19 11:56 RBC Hgb Hct MCH MCHC RDW Lymph % (Auto) Lymph # Seg Neutrophils % D-Dimer POC ABG pH POC ABG pCO2 POC ABG pO2 Sodium Potassium Chloride Carbon Dioxide BUN Creatinine Glucose POC Glucose 112 H Alkaline Phosphatase Total Creatine Kinase CK-MB (CK-2) Rel Index Troponin T Albumin LDL Cholesterol Direct Salicylates Acetaminophen Chest x-ray: report reviewed, image reviewed
--- NOTE | 2019-02-26 19:12 | Event Note ---
Date: 02/26/19 Following up on pt. LUE AVG with palpable thrill. HD yesterday apparently completed using his PC, despite order stating okay to use AVG. Discussed with nursing staff. Pt for HD tomorrow, Okay to use LUE AVG for HD, if AVG does not work then okay to use PC (and let me know).
[2019-02-26] MEDS ORDERED: LORazepam 2 MG/ML VIAL IV PRN (20:22)
[2019-02-26] MEDS ORDERED: SODIUM BICARBONATE 150 MEQ in DEXTROSE 5% IN WATER 1,000 ML IV SCH (22:00)
--- NOTE | 2019-02-27 03:07 | XRay Report ---
CHEST 1 VIEW INDICATION / CLINICAL INFORMATION: follow up respiratory failure. COMPARISON: 02/26/2019 FINDINGS: SUPPORT DEVICES: NG tube is been removed. Central line, vas catheter and endotracheal tube remain in place. HEART / MEDIASTINUM: No significant abnormality. LUNGS / PLEURA: Bilateral lung consolidation appearing to be pulmonary edema shows improvement with o nly slight density remaining. There is right upper lobe atelectasis. There may be a minimal right eff usion. No pneumothorax. ADDITIONAL FINDINGS: Vascular stents are again seen in the left upper arm. IMPRESSION: 1 Improving chest Signer Name: Andrez Ray MD Signed: 02/27/2019 3:02 AM Workstation Name: [employer]
[2019-02-27] MEDS: INSULIN REGULAR, HUMAN 100 UNITS/1 ML SUB-Q SCH ×4 (06:00→18:17)
[2019-02-27] MEDS: guaiFENesin 100 MG/5 ML ORAL LIQD PO SCH ×4 (07:00→09:43)
[2019-02-27] MEDS: IPRATROPIUM/ALBUTEROL SULFATE 3 ML AMPUL.NEB IH SCH ×3 (08:44→19:21)
[2019-02-27] MEDS: ACETYLCYSTEINE 20% 200 MG/1 ML *FOR INHALATION USE INHALATION SCH (08:45)
--- NOTE | 2019-02-27 09:37 | Progress Note ---
Assessment and Plan Assessment and plan: Patient is a 63-year-old -Stateless man from [facility] with a plethora of co-morbidities including blindness, CVA, CHF, PPM/ICD, loop recorder since 2012 that is MRI compatible, IDDM type 2, sepsis left foot ulcer, afib, ESRD with complications on HD TTS, hypertension, AOCD and GERD who presented to the ED with hypotensive after intubation in the emergency room. Still intubated, diagnosed with fluid overload, pleural effusion. Patient has had recurrent admission in the hospital for similar reason and was recently discharged from the hospital following treatment of Severe Sepsis due to Necrotizing Unstagable sacral decubitus ulcer with ostemomylitis, expected to complete abx on discharge till 02/16/19. 24 hr update: failed weaning trials, Vascular evaluated, will use AVG for dialysis as noted with palpable thrill. Expectation is that with more dialysis we can successfull wean off vent. If all fails, will recommend trach and peg and possible LTAC transfer with anti cipated longer weaning process and wound care mangement. Acute respiratory failure on mechanical ventilator >96 hrs Intubated, Pulm consulted weaning trial VAP BUNDLE ASPIRATION BUNDLE Acute pulmonary edema, fluid overload on CXR Dialysis Dilated CMP Continue diuresis Acute encephalopathy, probably metabolic or toxic Continues on Mechanical ventilator. ESRD on hemodialysis nephrology following Vascular eval. done re: LUE AV graft, see note Bilateral pleural effusions Anticipate improvement with Permanent atrial fibrillation and flutter Not on anticoagulation because of anemia thrombocytopenia Diabetes mellitus type 2 Fingerstick Q4h NSTEMI type 2 Cardiology following Schizophrenia Legally blind supportive care hypertension Monitor BP Hypokalemia repeat in am Cardiomyiopathy EF 35-40% Pulmonary hypertension Dysphagia s/p PEG tube Sacral decub ulcer Wound Nurse consulted Severe malnutrition /hypoalbuminemia with FTT: 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, mophead trimmer and wrapper following PEG placed on 01/02/19 decubitus ulcer at his post colostomy wound care consult History of sacral osteomyelitis and LE ulcers Completed Antibiotics Place on contact isolation for ESBL Klebsiella pneumonia on wound culture 01/02/19 Schizophrenia h/o Peripheral neuropathy: Continue gabapentin Pulm HTN Anemia of chronic disease -s/p total of 8 units PRBC, follow cbc- no occult GI bleed noted. -Pt is s/p x1 DDVAP RUL atelectasis, probably mucous plugging DVT prophylaxis Lovenox Full code status The high probability of a clinically significant, sudden or life threatening deterioration of the [pulmonary, neuro, renal] system(s) required my full and direct attention, intervention and personal management. The aggregate critical care time was [35] minutes. This time is in addition to time spent performing reported procedures but includes the following: [x] Data Review and interpretation [x] Patient assessment and monitoring of vital signs [] Documentation [x] Medication orders and management History Interval history: Patient seen and examined remains intubated, no new complaints. Not tolerating weaning trials. Hospitalist Physical - Physical exam Narrative exam: Gen: Not in acute distress, lying in bed, intubated HEENT: Normocephalic, atraumatic Neck: supple, no JVD Heart: S1 and S2 irreg, no murmurs, rubs or gallop Lungs: Bilateral crackles, no wheeze Abd: soft, non tender, non distended, normal BS, PRG tube, wound dressing in place. Ext: No edema, no clubbing, no cyanosis, ulcer left 5th finger, echymosis Neuro: Intubated MSK: Sacral wound, See wound documentation for detailed exam - Constitutional Vitals: Temp Pulse Resp BP Pulse Ox 99.7 F H 81 20 135/73 100 02/27/19 04:00 02/27/19 08:45 02/27/19 08:45 02/27/19 08:00 02/27/19 08:00 General appearance: Present: no acute distress Results - Labs CBC & Chem 7: 02/26/19 03:45 02/26/19 03:45 Labs: Laboratory Last Values WBC 8.4 K/mm3 (4.5-11.0) 02/26/19 03:45 RBC 2.96 M/mm3 (3.65-5.03) L 02/26/19 03:45 Hgb 8.0 gm/dl (11.8-15.2) L 02/26/19 03:45 Hct 25.8 % (35.5-45.6) L 02/26/19 03:45 MCV 87 fl (84-94) 02/26/19 03:45 MCH 27 pg (28-32) L 02/26/19 03:45 MCHC 31 % (32-34) L 02/26/19 03:45 RDW 20.0 % (13.2-15.2) H 02/26/19 03:45 Plt Count 249 K/mm3 (140-440) 02/26/19 03:45 Lymph % (Auto) 7.4 % (13.4-35.0) L 02/22/19 03:42 [place] % (Auto) 5.4 % (0.0-7.3) 02/22/19 03:42 Eos % (Auto) 1.7 % (0.0-4.3) 02/22/19 03:42 Baso % (Auto) 0.8 % (0.0-1.8) 02/22/19 03:42 Lymph # 0.7 K/mm3 (1.2-5.4) L 02/22/19 03:42 [place] # 0.5 K/mm3 (0.0-0.8) 02/22/19 03:42 Eos # 0.2 K/mm3 (0.0-0.4) 02/22/19 03:42 Baso # 0.1 K/mm3 (0.0-0.1) 02/22/19 03:42 Seg Neutrophils % 84.7 % (40.0-70.0) H 02/22/19 03:42 Seg Neutrophils # 7.6 K/mm3 (1.8-7.7) 02/22/19 03:42 APTT 33.7 Sec. (24.2-36.6) 02/21/19 18:30 2987.82 ng/mlDDU (0-234) H 02/22/19 05:54 POC ABG pH 7.483 (7.35-7.45) H 02/27/19 04:35 POC ABG pCO2 37.5 (35-45) 02/27/19 04:35 POC ABG pO2 61 (80-105) L 02/27/19 04:35 POC ABG HCO3 28.1 (22-26 mml/L) 02/27/19 04:35 POC ABG Total CO2 29 (23-27mmol/L) 02/27/19 04:35 POC ABG O2 Sat 93 02/27/19 04:35 POC ABG Base Excess 5 ((-2) - (+3)mmol/L) 02/27/19 04:35 30 % 02/27/19 04:35 Sodium 139 mmol/L (137-145) 02/26/19 03:45 Potassium 3.9 mmol/L (3.6-5.0) 02/26/19 03:45 Chloride 101.2 mmol/L (98-107) 02/26/19 03:45 Carbon Dioxide 30 mmol/L (22-30) 02/26/19 03:45 12 mmol/L 02/26/19 03:45 BUN 13 mg/dL (9-20) 02/26/19 03:45 1.8 mg/dL (0.8-1.5) H 02/26/19 03:45 Estimated GFR 46 ml/min 02/26/19 03:45 7 % 02/26/19 03:45 Glucose 77 mg/dL (75-100) 02/26/19 03:45 POC Glucose 101 (70-105) 02/27/19 06:22 Lactic Acid 1.00 mmol/L (0.7-2.0) 02/21/19 20:58 Calcium 9.5 mg/dL (8.4-10.2) 02/26/19 03:45 Magnesium 2.20 mg/dL (1.7-2.3) 02/21/19 18:30 0.20 mg/dL (0.1-1.2) 02/21/19 18:30 AST 17 units/L (5-40) 02/21/19 18:30 ALT 7 units/L (7-56) 02/21/19 18:30 136 units/L (35-129) H 02/21/19 18:30 28.0 umol/L (25-60) 02/21/19 20:04 64 units/L (55-170) 02/22/19 03:42 CK-MB (CK-2) 3.7 ng/mL (0.0-4.0) 02/22/19 03:42 CK-MB (CK-2) Rel Index 5.7 (0-4) H 02/22/19 03:42 0.193 ng/mL (0.00-0.029) H* 02/22/19 03:42 6.7 g/dL (6.3-8.2) 02/21/19 18:30 2.4 g/dL (3.9-5) L 02/21/19 18:30 0.6 % 02/21/19 18:30 Triglycerides 51 mg/dL (2-149) 02/21/19 18:30 Cholesterol 82 mg/dL (50-199) 02/21/19 18:30 36 mg/dL (50-130) L 02/21/19 18:30 40 mg/dL (40-59) 02/21/19 18:30 2.05 % 02/21/19 18:30 TSH 2.760 mlU/mL (0.270-4.200) 02/21/19 20:04 Salicylates < 0.3 mg/dL (2.8-20.0) L 02/21/19 20:04 Acetaminophen < 5.0 ug/mL (10.0-30.0) L 02/21/19 20:04 Hepatitis A IgM Ab Non-reactive (NonReactive) 02/23/19 11:20 Hep Bs Antigen Non-reactive (Negative) 02/23/19 11:20 Hep B Core IgM Ab Non-reactive (NonReactive) 02/23/19 11:20 Non-reactive (NonReactive) 02/23/19 11:20 Active Medications - Current Medications Current Medications: Generic Name Dose Route Start Last Admin Trade Name Freq PRN Reason Stop Dose Admin Acetaminophen 650 mg 02/21/19 22:19 Tylenol PO Q4H PRN Pain MILD(1-3)/Fever >100.5/HILL Acetylcysteine 200 mg 02/24/19 20:00 02/27/19 08:45 Mucomyst Inhalation INHALATION Not Given Q12HRT [facility] Albuterol/Ipratropium 1 ampul 02/24/19 20:00 02/27/19 08:44 Duoneb *Not For Prn Use* IH 1 ampul TIDRT [facility] Administration Lipase/Protease/Amylase 1 each 02/23/19 15:09 Mc Barrientos 10,500 Unit FEEDTUBE PRN PRN For Clogged Feeding Tube Dextrose 50 ml 02/21/19 22:22 02/23/19 14:51 D50w (25gm) Syringe IV 50 ml PRN PRN Administration Hypoglycemia Enoxaparin Sodium 30 mg 02/23/19 10:00 02/26/19 09:39 Lovenox SUB-Q 30 mg QDAY [facility] Administration Famotidine 20 mg 02/23/19 10:00 02/26/19 09:38 Pepcid PO 20 mg DAILY [facility] Administration Guaifenesin 200 mg 02/24/19 16:00 02/27/19 07:17 Robitussin PO 200 mg Q4HR [facility] Administration Hydrophilic Ointment 1 applic 02/21/19 18:24 Vaseline Lip Therapy TP Q2HR PRN Dry Lips Sodium Chloride 100 mls @ 999 mls/hr 02/26/19 09:00 Nacl 0.9% IV UMA PRN Hypotension Insulin Human Regular 0 units 02/26/19 12:00 02/27/19 06:00 Humulin R SUB-Q Not Given Q6HR [facility] Protocol Metoprolol Tartrate 25 mg 02/25/19 14:00 02/26/19 22:07 Lopressor PO 25 mg TID [facility] Administration Multi-Ingred Cream/Lotion/Oil/Oint 1 applic 02/21/19 18:24 Artificial Tears Ophth Oint OU Q4HR PRN Dry Eye(s) Ondansetron HCl 4 mg 02/21/19 22:19 Zofran IV Q8H PRN Nausea And Vomiting Risperidone 1 mg 02/25/19 13:00 02/26/19 09:39 Risperdal PO 1 mg DAILY [facility] Administration Sertraline HCl 100 mg 02/25/19 13:00 02/26/19 09:38 Zoloft PO 100 mg DAILY [facility] Administration Simple Syrup 15 ml 02/23/19 15:09 Simple Syrup FEEDTUBE PRN PRN Hypoglycemia Simple Syrup 30 ml 02/23/19 15:09 Simple Syrup FEEDTUBE PRN PRN Hypoglycemia Sodium Bicarbonate 325 mg 02/23/19 15:09 Sodium Bicarbonate FEEDTUBE PRN PRN For Clogged Feeding Tube Sodium Chloride 10 ml 02/22/19 10:00 02/26/19 22:00 Sodium Chloride Flush Syringe 10 Ml IV 10 ml BID [facility] Administration Sodium Chloride 10 ml 02/21/19 22:19 02/24/19 22:00 Sodium Chloride Flush Syringe 10 Ml IV 10 ml PRN PRN Administration LINE FLUSH Nutrition/Malnutrition Assess - Dietary Evaluation Nutrition/Malnutrition Findings: Nutrition Notes Start: 02/22/19 12:51 Freq: Status: Active Protocol: Document 02/26/19 13:54 RM (Rec: 02/26/19 13:59 RM [id number]) Nutrition Notes Initial or Follow up Reassessment Current Diagnosis Diabetes,Hypertension Other Pertinent Diagnosis Sacral PU, ESRD on HD (T/Thurs /Sat), Schizophrenia, Blind in L eye Current Diet Vital 1.2 at 70 ml/hr Labs/Tests K 3.9 Pertinent Medications Reviewed Height 5 ft 10 in Weight 88.7 kg [place] Body Weight (kg) 75.45 BMI 28.0 Subjective/Other Information Observed Vital 1.2 infusing at goal rate. Per nurse pt is tolerating TF and receiving Abhilash. Percent of energy/protein needs met: 100%/100% Burn Absent Trauma Absent #2 Nutrition Diagnosis Increased nutrient needs ( specify in comment below) Diagnosis Progress(for reassessment Continues documentation) #1 Nutrition Diagnosis Inadequate oral intake Diagnosis Progress(for reassessment Continues documentation) Is patient on ventilator? Yes Is Patient Ambulatory and/or Out of Bed No REE-([facility]-confined to bed) 97 Calculation Used for Recommendations Kcal/kg Additional Notes Protein Needs: 106-177g (1.2- 2g/kg) Fluid Needs: 1 ml/kcal Nutrition Intervention Nutrition Support: Vital 1.2 at 70 ml/hr Water flush of 100 mls q 4 hrs Kcal 2,016 Protein (gm) 126 Fluid (mL) 1,362 Add Supplement/Snack (indicate name/kcal Abhilash BID /protein ) Provides kCal: 190 Provides Protein (gm) 5 Goal #1 TF tolerance Goal #2 Continue to meet at least 80% of calorie and protein needs via TF Anticipated Discharge Needs: Unable to determine at this time Follow-Up By: 03/05/19 Additional Comments Follow for TF tolerance
[2019-02-27] MEDS: risperiDONE 1 MG TAB PO SCH (09:40)
[2019-02-27] MEDS: SERTRALINE 100 MG TAB PO SCH (09:40)
[2019-02-27] MEDS: METOPROLOL TARTRATE 25 MG TAB PO SCH ×3 (09:40→20:00)
[2019-02-27] MEDS: FAMOTIDINE 20 MG TAB PO SCH (09:40)
[2019-02-27] MEDS: ENOXAPARIN 30 MG/0.3 ML INJ SUB-Q SCH (09:41)
--- NOTE | 2019-02-27 12:04 | Progress Note ---
Subjective Principal diagnosis: respiratory failure Interval history: Patient was seen today for follow-up on multiple renal related issues Patient has had hemodialysis treatment yesterday His graft needs to be used for dialysis Currently has been on hemodialysis Saturday and Saturday Vitals intake output medications were reviewed Past medical history: Reviewed Family, social history: Reviewed Allergies: Reviewed Physical examination General: No acute distress Vitals: Reviewed HEENT: Oral mucosa moist no icterus Neck: Supple no thyromegaly nodular mass or JVD Central venous catheter site unremarkable Chest: Clear to auscultation anteriorly Heart: Regular rate and rhythm S1-S2 heard no S3-S4 Abdomen: Soft nontender no suprapubic masses no organomegaly Extremity: Dry skin less than 1+ edema AV graft: Palpable thrill Psych: No evidence of any agitation and aggression noted Derm: No petechial rash Assessment and plan: End stage renal disease: Patient will continue with hemodialysis on, Saturday and Saturday schedule, We need to use his AV graft functioning well for the next few treatment catheter can be removed From renal standpoint: Blood cultures negative for 5 days Periodically will need follow-up labs yesterday hemoglobin was 8.0 potassium 3.9B UN 13 creatinine 1.8 His graft should be used for hemodialysis, if working well central venous catheter can be removed Due to relatively low blood pressure will change dialysis prescription Increase dialysate sodium Adjust blood flow dialysate flow rate From dialysis perspective hemoglobin 8.0: Patient has been given erythropoietin already Respiratory failure, currently intubated/ pulmonary edema ultrafiltration only as tolerated Dilated cardiomyopathy, bilateral pleural effusion/ultrafiltration only as tolerated Comorbidities including blindness, stroke, congestive heart failure, ICD, loop recorder B disease, decubitus ulcer at his post colostomy Prognosis long-term very poor We'll continue to follow and make recommendation from renal standpoint Objective - Vital Signs Vital signs: Vital Signs - 12hr 02/27/19 02/27/19 02/27/19 01:00 02:00 03:00 Temperature Pulse Rate 81 82 82 Pulse Rate [ Anterior Bilateral Throughout] Pulse Rate [ From Monitor] Respiratory 15 17 17 Rate Respiratory Rate [Anterior Bilateral Throughout] Blood Pressure 143/81 137/74 131/79 O2 Sat by Pulse 100 100 100 Oximetry O2 Sat by Pulse Oximetry [ Anterior Bilateral Throughout] 02/27/19 02/27/19 02/27/19 04:00 04:30 05:00 Temperature 99.7 F H Pulse Rate 82 81 93 H Pulse Rate [ Anterior Bilateral Throughout] Pulse Rate [ From Monitor] Respiratory 13 16 Rate Respiratory Rate [Anterior Bilateral Throughout] Blood Pressure 140/72 157/79 143/80 O2 Sat by Pulse 100 100 100 Oximetry O2 Sat by Pulse Oximetry [ Anterior Bilateral Throughout] 02/27/19 02/27/19 02/27/19 06:00 07:01 08:00 Temperature 99.9 F H Pulse Rate 82 87 80 Pulse Rate [ Anterior Bilateral Throughout] Pulse Rate [ 82 From Monitor] Respiratory 16 13 15 Rate Respiratory Rate [Anterior Bilateral Throughout] Blood Pressure 137/71 131/66 137/68 O2 Sat by Pulse 100 100 100 Oximetry O2 Sat by Pulse Oximetry [ Anterior Bilateral Throughout] 02/27/19 02/27/19 02/27/19 08:45 09:00 09:40 Temperature Pulse Rate 81 81 Pulse Rate [ 81 Anterior Bilateral Throughout] Pulse Rate [ From Monitor] Respiratory 16 Rate Respiratory 20 Rate [Anterior Bilateral Throughout] Blood Pressure 142/76 145/76 O2 Sat by Pulse 100 Oximetry O2 Sat by Pulse Oximetry [ Anterior Bilateral Throughout] 02/27/19 02/27/19 02/27/19 09:45 10:00 10:15 Temperature 99.9 F H Pulse Rate 82 81 81 Pulse Rate [ Anterior Bilateral Throughout] Pulse Rate [ From Monitor] Respiratory 20 18 Rate Respiratory Rate [Anterior Bilateral Throughout] Blood Pressure 144/71 144/71 134/70 O2 Sat by Pulse 100 Oximetry O2 Sat by Pulse 100 Oximetry [ Anterior Bilateral Throughout] 02/27/19 02/27/19 02/27/19 10:31 10:45 11:00 Temperature Pulse Rate 81 80 81 Pulse Rate [ Anterior Bilateral Throughout] Pulse Rate [ From Monitor] Respiratory 17 Rate Respiratory Rate [Anterior Bilateral Throughout] Blood Pressure 125/71 118/67 114/65 O2 Sat by Pulse 100 Oximetry O2 Sat by Pulse Oximetry [ Anterior Bilateral Throughout] 02/27/19 02/27/19 02/27/19 11:01 11:15 11:30 Temperature Pulse Rate 80 80 80 Pulse Rate [ Anterior Bilateral Throughout] Pulse Rate [ From Monitor] Respiratory Rate Respiratory Rate [Anterior Bilateral Throughout] Blood Pressure 114/65 124/68 121/65 O2 Sat by Pulse Oximetry O2 Sat by Pulse Oximetry [ Anterior Bilateral Throughout] 02/27/19 11:45 Temperature Pulse Rate 81 Pulse Rate [ Anterior Bilateral Throughout] Pulse Rate [ From Monitor] Respiratory Rate Respiratory Rate [Anterior Bilateral Throughout] Blood Pressure 138/73 O2 Sat by Pulse Oximetry O2 Sat by Pulse Oximetry [ Anterior Bilateral Throughout] - Lab 02/26/19 03:45 02/26/19 03:45 Most recent lab results Calcium 9.5 mg/dL (8.4-10.2) 02/26/19 03:45 Magnesium 2.20 mg/dL (1.7-2.3) 02/21/19 18:30 Medications & Allergies - Medications Allergies/Adverse Reactions: Allergies haloperidol [From Haldol] Adverse Reaction (Verified 03/13/18 12:10) Unknown haloperidol lactate [From Haldol] Adverse Reaction (Verified 03/13/18 12:10) Unknown Home Medications: Home Medications Medication Instructions Recorded Confirmed Last Taken Type risperiDONE [RisperDAL] 1 mg PO QAM 03/13/18 02/21/19 Unknown History Sertraline [Zoloft] 100 mg PO QDAY 08/26/18 02/21/19 Unknown History Polyethylene Glycol 3350 [Miralax 17 gm PO QDAY #30 packet 11/05/18 02/21/19 Unknown Rx 3350] Aspirin EC 81 mg PO DAILY #30 11/19/18 02/21/19 Unknown Rx Docusate Sodium [Colace CAP] 100 mg PO BID #60 11/19/18 02/21/19 Unknown Rx Folic Acid [Folvite] 1 mg PO DAILY #30 tab 11/19/18 02/21/19 Unknown Rx Famotidine [Pepcid] 20 mg PO DAILY tablet 12/08/18 02/21/19 Unknown Rx Gabapentin [Neurontin] 100 mg PO QHS capsule 12/08/18 02/21/19 Unknown Rx Metoprolol [Lopressor TAB] 50 mg PO BID 30 Days tablet 12/08/18 02/21/19 Unknown Rx Sevelamer Carbonate [Renvela] 800 mg PO TIDWM tablet 12/08/18 02/21/19 Unknown Rx hydrALAZINE [Apresoline TAB] 100 mg PO Q8HR #120 tablet 12/08/18 02/21/19 Unknown Rx Acetaminophen [Acetaminophen TAB] 650 mg PO Q12H PRN 12/15/18 02/21/19 Unknown History Glucagon,Human Recombinant 1 mg IJ Q15MIN PRN 12/15/18 02/21/19 Unknown History [Glucagon Emergency Kit] Insulin Aspart [NovoLOG 100 See Protocol SQ QWEEK 12/15/18 02/21/19 Unknown History UNITS/ML VIAL] Active Medications: Generic Name Dose Route Start Last Admin Trade Name Freq PRN Reason Stop Dose Admin Acetaminophen 650 mg 02/21/19 22:19 Tylenol PO Q4H PRN Pain MILD(1-3)/Fever >100.5/HILL Albuterol/Ipratropium 1 ampul 02/24/19 20:00 02/27/19 08:44 Duoneb *Not For Prn Use* IH 1 ampul TIDRT SANCHEZ Administration Lipase/Protease/Amylase 1 each 02/23/19 15:09 Pancreaze 10,500 Unit FEEDTUBE PRN PRN For Clogged Feeding Tube Dextrose 50 ml 02/21/19 22:22 02/23/19 14:51 D50w (25gm) Syringe IV 50 ml PRN PRN Administration Hypoglycemia Enoxaparin Sodium 30 mg 02/23/19 10:00 02/27/19 09:41 Lovenox SUB-Q 30 mg QDAY SANCHEZ Administration Famotidine 20 mg 02/23/19 10:00 02/27/19 09:40 Pepcid PO 20 mg DAILY SANCHEZ Administration Hydrophilic Ointment 1 applic 02/21/19 18:24 Vaseline Lip Therapy TP Q2HR PRN Dry Lips Sodium Chloride 100 mls @ 999 mls/hr 02/26/19 09:00 Nacl 0.9% IV UMA PRN Hypotension Insulin Human Regular 0 units 02/26/19 12:00 02/27/19 06:00 Humulin R SUB-Q Not Given Q6HR [facility] Protocol Metoprolol Tartrate 25 mg 02/25/19 14:00 02/27/19 09:40 Lopressor PO 25 mg TID SANCHEZ Administration Multi-Ingred Cream/Lotion/Oil/Oint 1 applic 02/21/19 18:24 Artificial Tears Ophth Oint OU Q4HR PRN Dry Eye(s) Ondansetron HCl 4 mg 02/21/19 22:19 Zofran IV Q8H PRN Nausea And Vomiting Risperidone 1 mg 02/25/19 13:00 02/27/19 09:40 Risperdal PO 1 mg DAILY SANCHEZ Administration Sertraline HCl 100 mg 02/25/19 13:00 02/27/19 09:40 Zoloft PO 100 mg DAILY SANCHEZ Administration Simple Syrup 15 ml 02/23/19 15:09 Simple Syrup FEEDTUBE PRN PRN Hypoglycemia Simple Syrup 30 ml 02/23/19 15:09 Simple Syrup FEEDTUBE PRN PRN Hypoglycemia Sodium Bicarbonate 325 mg 02/23/19 15:09 Sodium Bicarbonate FEEDTUBE PRN PRN For Clogged Feeding Tube Sodium Chloride 10 ml 02/22/19 10:00 02/27/19 09:42 Sodium Chloride Flush Syringe 10 Ml IV 10 ml BID SANCHEZ Administration Sodium Chloride 10 ml 02/21/19 22:19 02/24/19 22:00 Sodium Chloride Flush Syringe 10 Ml IV 10 ml PRN PRN Administration LINE FLUSH
--- NOTE | 2019-02-27 12:19 | Progress Note ---
Assessment and Plan Acute respiratory failure Intubated. Pulmonary following. Altered mental status Head CT with no acute findings. NSTEMI type II Chronically elevated Malika. Permanent atrial fibrillation and atrial flutter Currently with CVR. Cont lopressor. No long-term AC in setting of dementia, anemia, thrombocytopenia, and multiple co-morbidities. Loop recorder in situ Cardiomyopathy - EF 35-40% No current clinical evidence of acutely decompensated HF. Echo done 12/16/2018 showed EF 35-40%, mild LVH, RV systolic function mod reduced, RA mildly dilated, pulm HTN with RVSP 53mmHg, large pleural effusion, markedly increased RA pressure. Cont lopressor. Consider addition of ACEI/ARB when BPs permit and if okay per nephrology. ESRD on HD Nephrology following. Hypokalemia Replete PRN. Anemia Chronic. Monitor CBC. Elevated DDimer Chest CTA negative for PE HTN HLP DM ? H/o CVA / PEG tube in situ Unstageable sacral ulcer with osteomyelitis, status post debridement Legally blind Schizophrenia Currently stable cardiac status. Continue present cardiac management. Will see on an as-needed basis. The patient has been seen in conjunction with Dr. Woodall who agrees with the assessment and plan of care. Subjective Date of service: 02/27/19 Principal diagnosis: respiratory failure Interval history: Patient intubated and lying in bed in NAD. Unresponsive. Atrial flutter with CVR on telemetry. Objective Last Vital Signs Temp 99.9 F H 02/27/19 09:45 Pulse 81 02/27/19 12:00 Resp 17 02/27/19 11:00 BP 116/67 02/27/19 12:00 Pulse Ox 100 02/27/19 11:00 - Physical Examination General: Other (intubated) HEENT: Positive: PERRL, EOMI Neck: Positive: neck supple, trachea midline, Other (right IJ PermCath in place). Negative: JVD/HJR, Masses Cardiac: Positive: Regular Rate, Audible Murmur Lungs: Positive: Ventilated Respirations Neuro: Positive: Other (intubated) Abdomen: Positive: Unremarkable /Rectal: Other (deferred) Skin: Positive: Clear Musculoskeletal: Decreased Range of Motion Extremities: Present: normal. Absent: edema - Imaging and Cardiology EKG: report reviewed, image reviewed Echo: report reviewed (Echo done 12/16/2018 showed EF 35-40%, mild LVH, RV systolic function mod reduced, RA mildly dilated, pulm HTN with RVSP 53mmHg, large pleural ) - Telemetry EKG Rhythm: Atrial Flutter
--- NOTE | 2019-02-27 12:21 | Progress Note ---
Assessment and Plan 63 y/o male with multiple medical issues admitted with altered mental status, acute respiratory failure requiring mechanical ventilation 1. Continue vent support 2. HD per renal 3. Agree with IMS, given multiple admissions and several events requiring intubation, trach and peg would be very reasonable. CCT 31 minutes. Subjective Date of service: 02/27/19 Principal diagnosis: respiratory failure Interval history: No acute events. Currently on HD. CXR has improved. No family at bedside. Objective Vital Signs - 12hr 02/27/19 02/27/19 02/27/19 01:00 02:00 03:00 Temperature Pulse Rate 81 82 82 Pulse Rate [ Anterior Bilateral Throughout] Pulse Rate [ From Monitor] Respiratory 15 17 17 Rate Respiratory Rate [Anterior Bilateral Throughout] Blood Pressure 143/81 137/74 131/79 O2 Sat by Pulse 100 100 100 Oximetry O2 Sat by Pulse Oximetry [ Anterior Bilateral Throughout] 02/27/19 02/27/19 02/27/19 04:00 04:30 05:00 Temperature 99.7 F H Pulse Rate 82 81 93 H Pulse Rate [ Anterior Bilateral Throughout] Pulse Rate [ From Monitor] Respiratory 13 16 Rate Respiratory Rate [Anterior Bilateral Throughout] Blood Pressure 140/72 157/79 143/80 O2 Sat by Pulse 100 100 100 Oximetry O2 Sat by Pulse Oximetry [ Anterior Bilateral Throughout] 02/27/19 02/27/19 02/27/19 06:00 07:01 08:00 Temperature 99.9 F H Pulse Rate 82 87 80 Pulse Rate [ Anterior Bilateral Throughout] Pulse Rate [ 82 From Monitor] Respiratory 16 13 15 Rate Respiratory Rate [Anterior Bilateral Throughout] Blood Pressure 137/71 131/66 137/68 O2 Sat by Pulse 100 100 100 Oximetry O2 Sat by Pulse Oximetry [ Anterior Bilateral Throughout] 02/27/19 02/27/19 02/27/19 08:45 09:00 09:40 Temperature Pulse Rate 81 81 Pulse Rate [ 81 Anterior Bilateral Throughout] Pulse Rate [ From Monitor] Respiratory 16 Rate Respiratory 20 Rate [Anterior Bilateral Throughout] Blood Pressure 142/76 145/76 O2 Sat by Pulse 100 Oximetry O2 Sat by Pulse Oximetry [ Anterior Bilateral Throughout] 02/27/19 02/27/19 02/27/19 09:45 10:00 10:15 Temperature 99.9 F H Pulse Rate 82 81 81 Pulse Rate [ Anterior Bilateral Throughout] Pulse Rate [ From Monitor] Respiratory 20 18 Rate Respiratory Rate [Anterior Bilateral Throughout] Blood Pressure 144/71 144/71 134/70 O2 Sat by Pulse 100 Oximetry O2 Sat by Pulse 100 Oximetry [ Anterior Bilateral Throughout] 02/27/19 02/27/19 02/27/19 10:31 10:45 11:00 Temperature Pulse Rate 81 80 81 Pulse Rate [ Anterior Bilateral Throughout] Pulse Rate [ From Monitor] Respiratory 17 Rate Respiratory Rate [Anterior Bilateral Throughout] Blood Pressure 125/71 118/67 114/65 O2 Sat by Pulse 100 Oximetry O2 Sat by Pulse Oximetry [ Anterior Bilateral Throughout] 02/27/19 02/27/19 02/27/19 11:01 11:15 11:30 Temperature Pulse Rate 80 80 80 Pulse Rate [ Anterior Bilateral Throughout] Pulse Rate [ From Monitor] Respiratory Rate Respiratory Rate [Anterior Bilateral Throughout] Blood Pressure 114/65 124/68 121/65 O2 Sat by Pulse Oximetry O2 Sat by Pulse Oximetry [ Anterior Bilateral Throughout] 02/27/19 02/27/19 11:45 12:00 Temperature Pulse Rate 81 81 Pulse Rate [ Anterior Bilateral Throughout] Pulse Rate [ From Monitor] Respiratory Rate Respiratory Rate [Anterior Bilateral Throughout] Blood Pressure 138/73 116/67 O2 Sat by Pulse Oximetry O2 Sat by Pulse Oximetry [ Anterior Bilateral Throughout] Constitutional: alert, other (critically ill on vent) Eyes: non-icteric Effort: normal Ascultation: Bilateral: diminished breath sounds, other (coarse BS bilaterally) Percussion: Bilateral: not dull Cardiovascular: regular rate and rhythm (no mrg) Gastrointestinal: normoactive bowel sounds, soft, non-tender, non-distended Extremities: no edema, pink and warm Neurologic: other (somnolent, minimally arousable, squeezes with R and L hand and wiggles toes on command) Psychiatric: other (unable to assess) CBC and BMP: 02/26/19 03:45 02/26/19 03:45 ABG, PT/INR, D-dimer: ABG POC ABG pH 7.483 (7.35-7.45) H 02/27/19 04:35 POC ABG pCO2 37.5 (35-45) 02/27/19 04:35 POC ABG pO2 61 (80-105) L 02/27/19 04:35 POC ABG HCO3 28.1 (22-26 mml/L) 02/27/19 04:35 POC ABG Total CO2 29 (23-27mmol/L) 02/27/19 04:35 POC ABG O2 Sat 93 02/27/19 04:35 PT/INR, D-dimer 2987.82 ng/mlDDU (0-234) H 02/22/19 05:54 Abnormal lab findings: Abnormal Labs 02/21/19 02/21/19 02/21/19 18:30 18:30 18:30 RBC 3.26 L Hgb 8.8 L Hct 29.0 L MCH 27 L MCHC 30 L RDW 19.1 H Lymph % (Auto) 6.1 L Lymph # 0.4 L Seg Neutrophils % 86.2 H D-Dimer POC ABG pH POC ABG pCO2 POC ABG pO2 Sodium 133 L Potassium 3.3 L Chloride 93.1 L Carbon Dioxide 33 H BUN Creatinine Glucose 161 H POC Glucose Alkaline Phosphatase 136 H Total Creatine Kinase 37 L CK-MB (CK-2) Rel Index Troponin T 0.192 H* Albumin 2.4 L LDL Cholesterol Direct 36 L Salicylates Acetaminophen 02/21/19 02/21/19 02/21/19 18:42 20:04 20:04 RBC Hgb Hct MCH MCHC RDW Lymph % (Auto) Lymph # Seg Neutrophils % D-Dimer POC ABG pH POC ABG pCO2 56.7 H POC ABG pO2 291 H Sodium Potassium Chloride Carbon Dioxide BUN Creatinine Glucose POC Glucose Alkaline Phosphatase Total Creatine Kinase CK-MB (CK-2) Rel Index Troponin T Albumin LDL Cholesterol Direct Salicylates < 0.3 L Acetaminophen < 5.0 L 02/21/19 02/22/19 02/22/19 22:35 03:42 03:42 RBC 3.20 L Hgb 8.8 L Hct 27.6 L MCH MCHC RDW 18.9 H Lymph % (Auto) 7.4 L Lymph # 0.7 L Seg Neutrophils % 84.7 H D-Dimer POC ABG pH POC ABG pCO2 POC ABG pO2 Sodium 134 L Potassium 2.6 L* D Chloride Carbon Dioxide BUN Creatinine Glucose POC Glucose Alkaline Phosphatase Total Creatine Kinase CK-MB (CK-2) Rel Index 5.2 H Troponin T 0.202 H* Albumin LDL Cholesterol Direct Salicylates Acetaminophen 02/22/19 02/22/19 02/22/19 03:42 05:54 09:04 RBC Hgb Hct MCH MCHC RDW Lymph % (Auto) Lymph # Seg Neutrophils % D-Dimer 2987.82 H POC ABG pH 7.451 H POC ABG pCO2 POC ABG pO2 Sodium Potassium Chloride Carbon Dioxide BUN Creatinine Glucose POC Glucose Alkaline Phosphatase Total Creatine Kinase CK-MB (CK-2) Rel Index 5.7 H Troponin T 0.193 H* Albumin LDL Cholesterol Direct Salicylates Acetaminophen 02/22/19 02/22/19 02/23/19 10:36 23:56 00:52 RBC Hgb Hct MCH MCHC RDW Lymph % (Auto) Lymph # Seg Neutrophils % D-Dimer POC ABG pH POC ABG pCO2 POC ABG pO2 Sodium Potassium 3.1 L Chloride Carbon Dioxide BUN Creatinine Glucose POC Glucose 58 L 111 H Alkaline Phosphatase Total Creatine Kinase CK-MB (CK-2) Rel Index Troponin T Albumin LDL Cholesterol Direct Salicylates Acetaminophen 02/23/19 02/23/19 02/23/19 05:00 06:35 14:26 RBC Hgb Hct MCH MCHC RDW Lymph % (Auto) Lymph # Seg Neutrophils % D-Dimer POC ABG pH POC ABG pCO2 POC ABG pO2 Sodium 135 L Potassium 3.1 L Chloride Carbon Dioxide BUN 21 H Creatinine 2.0 H Glucose 57 L POC Glucose 64 L 62 L Alkaline Phosphatase Total Creatine Kinase CK-MB (CK-2) Rel Index Troponin T Albumin LDL Cholesterol Direct Salicylates Acetaminophen 02/24/19 02/24/19 02/24/19 02:11 04:12 04:55 RBC 2.84 L Hgb 7.8 L Hct 24.5 L MCH MCHC RDW 19.5 H Lymph % (Auto) Lymph # Seg Neutrophils % D-Dimer POC ABG pH 7.511 H POC ABG pCO2 33.9 L POC ABG pO2 62 L Sodium Potassium Chloride Carbon Dioxide BUN Creatinine Glucose POC Glucose 69 L Alkaline Phosphatase Total Creatine Kinase CK-MB (CK-2) Rel Index Troponin T Albumin LDL Cholesterol Direct Salicylates Acetaminophen 02/24/19 02/24/19 02/25/19 04:55 05:41 04:45 RBC Hgb Hct MCH MCHC RDW Lymph % (Auto) Lymph # Seg Neutrophils % D-Dimer POC ABG pH 7.466 H POC ABG pCO2 POC ABG pO2 75 L Sodium Potassium Chloride Carbon Dioxide BUN Creatinine 1.8 H Glucose 73 L POC Glucose 127 H Alkaline Phosphatase Total Creatine Kinase CK-MB (CK-2) Rel Index Troponin T Albumin LDL Cholesterol Direct Salicylates Acetaminophen 02/25/19 02/25/19 02/26/19 16:34 21:33 03:45 RBC 2.96 L Hgb 8.0 L Hct 25.8 L MCH 27 L MCHC 31 L RDW 20.0 H Lymph % (Auto) Lymph # Seg Neutrophils % D-Dimer POC ABG pH POC ABG pCO2 POC ABG pO2 Sodium Potassium Chloride Carbon Dioxide BUN Creatinine Glucose POC Glucose 141 H 106 H Alkaline Phosphatase Total Creatine Kinase CK-MB (CK-2) Rel Index Troponin T Albumin LDL Cholesterol Direct Salicylates Acetaminophen 02/26/19 02/26/19 02/26/19 03:45 04:13 07:53 RBC Hgb Hct MCH MCHC RDW Lymph % (Auto) Lymph # Seg Neutrophils % D-Dimer POC ABG pH 7.470 H POC ABG pCO2 POC ABG pO2 Sodium Potassium Chloride Carbon Dioxide BUN Creatinine 1.8 H Glucose POC Glucose 110 H Alkaline Phosphatase Total Creatine Kinase CK-MB (CK-2) Rel Index Troponin T Albumin LDL Cholesterol Direct Salicylates Acetaminophen 02/26/19 02/26/19 02/27/19 11:56 17:43 00:12 RBC Hgb Hct MCH MCHC RDW Lymph % (Auto) Lymph # Seg Neutrophils % D-Dimer POC ABG pH POC ABG pCO2 POC ABG pO2 Sodium Potassium Chloride Carbon Dioxide BUN Creatinine Glucose POC Glucose 112 H 127 H 127 H Alkaline Phosphatase Total Creatine Kinase CK-MB (CK-2) Rel Index Troponin T Albumin LDL Cholesterol Direct Salicylates Acetaminophen 02/27/19 04:35 RBC Hgb Hct MCH MCHC RDW Lymph % (Auto) Lymph # Seg Neutrophils % D-Dimer POC ABG pH 7.483 H POC ABG pCO2 POC ABG pO2 61 L Sodium Potassium Chloride Carbon Dioxide BUN Creatinine Glucose POC Glucose Alkaline Phosphatase Total Creatine Kinase CK-MB (CK-2) Rel Index Troponin T Albumin LDL Cholesterol Direct Salicylates Acetaminophen
--- NOTE | 2019-02-27 17:37 | Event Note ---
Date: 02/27/19 Pt s/p HD earlier today via LUE AVG. Discussed with HD nurse. No reported issues. Continue to use AVG for now. After multiple successful dialysis sessions without issue, then catheter could likely be removed prior to discharge.
[2019-02-28] MEDS: INSULIN REGULAR, HUMAN 100 UNITS/1 ML SUB-Q SCH ×4 (00:40→17:55)
--- NOTE | 2019-02-28 03:18 | XRay Report ---
CHEST - 1 VIEW INDICATION: follow up respiratory failure COMPARISON: Yesterday FINDINGS: Support devices: Stable support device positioning. Heart: Stable cardiomediastinal silhouette. Lungs/pleura: Persistent mild edema with no consolidation or significant effusion. Additional findings: None. IMPRESSION: Unchanged exam. Signer Name: Fabian Minaya MD Signed: 02/28/2019 3:14 AM Workstation Name: [id number]
--- NOTE | 2019-02-28 08:19 | Progress Note ---
Assessment and Plan Assessment and plan: Patient is a 63-year-old -[place] man from [facility] with a plethora of co-morbidities including blindness, CVA, CHF, PPM/ICD, loop recorder since 2012 that is MRI compatible, IDDM type 2, sepsis left foot ulcer, afib, ESRD with complications on HD TTS, hypertension, AOCD and GERD who presented to the ED with hypotensive after intubation in the emergency room. Still intubated, diagnosed with fluid overload, pleural effusion. Patient has had recurrent admission in the hospital for similar reason and was recently discharged from the hospital following treatment of Severe Sepsis due to Necrotizing Unstagable sacral decubitus ulcer with ostemomylitis, expected to complete abx on discharge till 02/16/19. 24 hr update: failed weaning trials, Vascular evaluated, successfully used LUE AVG for dialysis as noted with palpable thrill. Expectation is that with more dialysis we can successfull wean off vent. Surgery consulted for trach and peg and possible LTAC transfer with anticipated longer weaning process and wound care management. Acute respiratory failure on mechanical ventilator >96 hrs Intubated, Pulm consulted weaning trial VAP BUNDLE ASPIRATION BUNDLE Acute pulmonary edema, fluid overload on CXR repeat xray intermittently Dialysis Dilated CMP Continue diuresis Acute encephalopathy, probably metabolic or toxic Continues on Mechanical ventilator. ESRD on hemodialysis nephrology following Vascular eval. 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 -Pt is s/p x1 DDVAP RUL atelectasis, probably mucous plugging DVT prophylaxis Lovenox Full code status poor prognosis The high probability of a clinically significant, sudden or life threatening deterioration of the [pulmonary, neuro, renal] system(s) required my full and direct attention, intervention and personal management. The aggregate critical care time was [35] minutes. This time is in addition to time spent performing reported procedures but includes the following: [x] Data Review and interpretation [x] Patient assessment and monitoring of vital signs [] Documentation [x] Medication orders and management History Interval history: Patient seen and examined remains intubated, encephalopathic, no new complaints. Not tolerating weaning trials. Hospitalist Physical - Physical exam Narrative exam: Gen: Not in acute distress, lying in bed, intubated, not following commands HEENT: Normocephalic, atraumatic Neck: supple, no JVD Heart: S1 and S2 irreg, no murmurs, rubs or gallop Lungs: Bilateral crackles, no wheeze Abd: soft, non tender, non distended, normal BS, PRG tube, wound dressing in place. Ext: No edema, no clubbing, no cyanosis, ulcer left 5th finger, echymosis Neuro: Intubated MSK: Sacral wound, See wound documentation for detailed exam - Constitutional Vitals: Temp Pulse Resp BP Pulse Ox 99.7 F H 84 19 118/75 100 02/28/19 07:48 02/28/19 06:01 02/28/19 06:01 02/28/19 06:01 02/28/19 06:01 General appearance: Present: no acute distress Results - Labs CBC & Chem 7: 02/26/19 03:45 02/26/19 03:45 Labs: Laboratory Last Values WBC 8.4 K/mm3 (4.5-11.0) 02/26/19 03:45 RBC 2.96 M/mm3 (3.65-5.03) L 02/26/19 03:45 Hgb 8.0 gm/dl (11.8-15.2) L 02/26/19 03:45 Hct 25.8 % (35.5-45.6) L 02/26/19 03:45 MCV 87 fl (84-94) 02/26/19 03:45 MCH 27 pg (28-32) L 02/26/19 03:45 MCHC 31 % (32-34) L 02/26/19 03:45 RDW 20.0 % (13.2-15.2) H 02/26/19 03:45 Plt Count 249 K/mm3 (140-440) 02/26/19 03:45 Lymph % (Auto) 7.4 % (13.4-35.0) L 02/22/19 03:42 [place] % (Auto) 5.4 % (0.0-7.3) 02/22/19 03:42 Eos % (Auto) 1.7 % (0.0-4.3) 02/22/19 03:42 Baso % (Auto) 0.8 % (0.0-1.8) 02/22/19 03:42 Lymph # 0.7 K/mm3 (1.2-5.4) L 02/22/19 03:42 [place] # 0.5 K/mm3 (0.0-0.8) 02/22/19 03:42 Eos # 0.2 K/mm3 (0.0-0.4) 02/22/19 03:42 Baso # 0.1 K/mm3 (0.0-0.1) 02/22/19 03:42 Seg Neutrophils % 84.7 % (40.0-70.0) H 02/22/19 03:42 Seg Neutrophils # 7.6 K/mm3 (1.8-7.7) 02/22/19 03:42 APTT 33.7 Sec. (24.2-36.6) 02/21/19 18:30 2987.82 ng/mlDDU (0-234) H 02/22/19 05:54 POC ABG pH 7.483 (7.35-7.45) H 02/27/19 04:35 POC ABG pCO2 37.5 (35-45) 02/27/19 04:35 POC ABG pO2 61 (80-105) L 02/27/19 04:35 POC ABG HCO3 28.1 (22-26 mml/L) 02/27/19 04:35 POC ABG Total CO2 29 (23-27mmol/L) 02/27/19 04:35 POC ABG O2 Sat 93 02/27/19 04:35 POC ABG Base Excess 5 ((-2) - (+3)mmol/L) 02/27/19 04:35 30 % 08/09/19 04:35 Sodium 139 mmol/L (137-145) 02/26/19 03:45 Potassium 3.9 mmol/L (3.6-5.0) 02/26/19 03:45 Chloride 101.2 mmol/L (98-107) 02/26/19 03:45 Carbon Dioxide 30 mmol/L (22-30) 02/26/19 03:45 12 mmol/L 02/26/19 03:45 BUN 13 mg/dL (9-20) 02/26/19 03:45 1.8 mg/dL (0.8-1.5) H 02/26/19 03:45 Estimated GFR 46 ml/min 02/26/19 03:45 7 % 02/26/19 03:45 Glucose 77 mg/dL (75-100) 02/26/19 03:45 POC Glucose 134 (70-105) H 02/28/19 05:50 Lactic Acid 1.00 mmol/L (0.7-2.0) 02/21/19 20:58 Calcium 9.5 mg/dL (8.4-10.2) 02/26/19 03:45 Magnesium 2.20 mg/dL (1.7-2.3) 02/21/19 18:30 0.20 mg/dL (0.1-1.2) 02/21/19 18:30 AST 17 units/L (5-40) 02/21/19 18:30 ALT 7 units/L (7-56) 02/21/19 18:30 136 units/L (35-129) H 02/21/19 18:30 28.0 umol/L (25-60) 02/21/19 20:04 64 units/L (55-170) 02/22/19 03:42 CK-MB (CK-2) 3.7 ng/mL (0.0-4.0) 02/22/19 03:42 CK-MB (CK-2) Rel Index 5.7 (0-4) H 02/22/19 03:42 0.193 ng/mL (0.00-0.029) H* 02/22/19 03:42 6.7 g/dL (6.3-8.2) 02/21/19 18:30 2.4 g/dL (3.9-5) L 02/21/19 18:30 0.6 % 02/21/19 18:30 Triglycerides 51 mg/dL (2-149) 02/21/19 18:30 Cholesterol 82 mg/dL (50-199) 02/21/19 18:30 36 mg/dL (50-130) L 02/21/19 18:30 40 mg/dL (40-59) 02/21/19 18:30 2.05 % 02/21/19 18:30 TSH 2.760 mlU/mL (0.270-4.200) 02/21/19 20:04 Salicylates < 0.3 mg/dL (2.8-20.0) L 02/21/19 20:04 Acetaminophen < 5.0 ug/mL (10.0-30.0) L 02/21/19 20:04 Hepatitis A IgM Ab Non-reactive (NonReactive) 02/23/19 11:20 Hep Bs Antigen Non-reactive (Negative) 02/23/19 11:20 Hep B Core IgM Ab Non-reactive (NonReactive) 02/23/19 11:20 Non-reactive (NonReactive) 02/23/19 11:20 Active Medications - Current Medications Current Medications: Generic Name Dose Route Start Last Admin Trade Name Freq PRN Reason Stop Dose Admin Acetaminophen 650 mg 02/21/19 22:19 Tylenol PO Q4H PRN Pain MILD(1-3)/Fever >100.5/HILL Albuterol/Ipratropium 1 ampul 02/24/19 20:00 02/27/19 19:21 Duoneb *Not For Prn Use* IH 1 ampul TIDRT [facility] Administration Lipase/Protease/Amylase 1 each 02/23/19 15:09 Pancrejewel Barrientos 10,500 Unit FEEDTUBE PRN PRN For Clogged Feeding Tube Dextrose 50 ml 02/21/19 22:22 02/23/19 14:51 D50w (25gm) Syringe IV 50 ml PRN PRN Administration Hypoglycemia Enoxaparin Sodium 30 mg 02/23/19 10:00 02/27/19 09:41 Lovenox SUB-Q 30 mg QDAY SANCHEZ Administration Famotidine 20 mg 02/23/19 10:00 02/27/19 09:40 Pepcid PO 20 mg DAILY SANCHEZ Administration Hydrophilic Ointment 1 applic 02/21/19 18:24 Vaseline Lip Therapy TP Q2HR PRN Dry Lips Sodium Chloride 100 mls @ 999 mls/hr 02/26/19 09:00 Nacl 0.9% IV UMA PRN Hypotension Insulin Human Regular 0 units 02/26/19 12:00 02/28/19 05:52 Humulin R SUB-Q Not Given Q6HR [facility] Protocol Metoprolol Tartrate 25 mg 02/25/19 14:00 02/27/19 20:00 Lopressor PO Not Given TID SANCHEZ Multi-Ingred Cream/Lotion/Oil/Oint 1 applic 02/21/19 18:24 Artificial Tears Ophth Oint OU Q4HR PRN Dry Eye(s) Ondansetron HCl 4 mg 02/21/19 22:19 Zofran IV Q8H PRN Nausea And Vomiting Risperidone 1 mg 02/25/19 13:00 02/27/19 09:40 Risperdal PO 1 mg DAILY SANCHEZ Administration Sertraline HCl 100 mg 02/25/19 13:00 02/27/19 09:40 Zoloft PO 100 mg DAILY SANCHEZ Administration Simple Syrup 15 ml 02/23/19 15:09 Simple Syrup FEEDTUBE PRN PRN Hypoglycemia Simple Syrup 30 ml 02/23/19 15:09 Simple Syrup FEEDTUBE PRN PRN Hypoglycemia Sodium Bicarbonate 325 mg 02/23/19 15:09 Sodium Bicarbonate FEEDTUBE PRN PRN For Clogged Feeding Tube Sodium Chloride 10 ml 02/22/19 10:00 02/27/19 22:00 Sodium Chloride Flush Syringe 10 Ml IV 10 ml BID SANCHEZ Administration Sodium Chloride 10 ml 02/21/19 22:19 02/24/19 22:00 Sodium Chloride Flush Syringe 10 Ml IV 10 ml PRN PRN Administration LINE FLUSH Nutrition/Malnutrition Assess - Dietary Evaluation Nutrition/Malnutrition Findings: Nutrition Notes Start: 02/22/19 12:51 Freq: Status: Active Protocol: Document 02/26/19 13:54 RM (Rec: 02/26/19 13:59 RM [id number]) Nutrition Notes Initial or Follow up Reassessment Current Diagnosis Diabetes,Hypertension Other Pertinent Diagnosis Sacral PU, ESRD on HD (T/Thurs /Sat), Schizophrenia, Blind in L eye Current Diet Vital 1.2 at 70 ml/hr Labs/Tests K 3.9 Pertinent Medications Reviewed Height 5 ft 10 in Weight 88.7 kg Jackson Body Weight (kg) 75.45 BMI 28.0 Subjective/Other Information Observed Vital 1.2 infusing at goal rate. Per nurse pt is tolerating TF and receiving Abhilash. Percent of energy/protein needs met: 100%/100% Burn Absent Trauma Absent #2 Nutrition Diagnosis Increased nutrient needs ( specify in comment below) Diagnosis Progress(for reassessment Continues documentation) #1 Nutrition Diagnosis Inadequate oral intake Diagnosis Progress(for reassessment Continues documentation) Is patient on ventilator? Yes Is Patient Ambulatory and/or Out of Bed No REE-([facility]-confined to bed) Calculation Used for Recommendations Kcal/kg Additional Notes Protein Needs: 106-177g (1.2- 2g/kg) Fluid Needs: 1 ml/kcal Nutrition Intervention Nutrition Support: Vital 1.2 at 70 ml/hr Water flush of 100 mls q 4 hrs Kcal 2,016 Protein (gm) 126 Fluid (mL) 1,362 Add Supplement/Snack (indicate name/kcal Abhilash BID /protein ) Provides kCal: 190 Provides Protein (gm) 5 Goal #1 TF tolerance Goal #2 Continue to meet at least 80% of calorie and protein needs via TF Anticipated Discharge Needs: Unable to determine at this time Follow-Up By: 03/05/19 Additional Comments Follow for TF tolerance
[2019-02-28] MEDS: IPRATROPIUM/ALBUTEROL SULFATE 3 ML AMPUL.NEB IH SCH ×3 (08:55→20:11)
[2019-02-28] MEDS: risperiDONE 1 MG TAB PO SCH (10:30)
[2019-02-28] MEDS: METOPROLOL TARTRATE 25 MG TAB PO SCH ×2 (10:30→11:33)
[2019-02-28] MEDS: ENOXAPARIN 30 MG/0.3 ML INJ SUB-Q SCH (10:31)
[2019-02-28] MEDS: FAMOTIDINE 20 MG TAB PO SCH (10:31)
[2019-02-28] MEDS: SERTRALINE 100 MG TAB PO SCH (10:31)
--- NOTE | 2019-02-28 11:08 | Progress Note ---
Subjective Principal diagnosis: respiratory failure Interval history: Patient was seen today for follow-up on multiple renal related issues patient is currently in maintenance dialysis Saturday AV graft is being used now Vitals intake output medications were reviewed Past medical history: Reviewed Family, social history: Reviewed Allergies: Reviewed Physical examination General: No acute distress Vitals: Reviewed HEENT: Oral mucosa moist no icterus Neck: Supple no thyromegaly nodular mass or JVD Chest: Clear to auscultation anteriorly Heart: Regular rate and rhythm S1-S2 heard no S3-S4 Abdomen: Soft nontender no suprapubic masses no organomegaly Extremity: Dry skin less than 1+ edema Psych: No evidence of any agitation and aggression noted Derm: No petechial rash Assessment and plan: End stage renal disease: Patient will continue with hemodialysis on, Saturday and Saturday schedule currently graft is being used , also has had central venous catheter which can be removed if the graft continues to work well Status post Mohs surgery evaluation currently being followed Respiratory failure Was intubated during this admission Anemia and end-stage renal disease: To monitor , will give weekly erythropoietin 40,000 Secondary hyperparathyroidism: Periodically check vitamin D and phosphorus level along with PTH Respiratory failure, was intubated upon arrival hypertension and volume: Stable, judicious ultrafiltration by dialysis nurse Prognosis: Very poor, mortality risk is very high We'll continue to follow and make recommendation from renal standpoint Objective - Vital Signs Vital signs: Vital Signs - 12hr 02/27/19 02/27/19 02/28/19 23:38 23:41 00:00 Temperature 97.8 F Pulse Rate 80 80 Pulse Rate [ 84 From Monitor] Respiratory 16 Rate Blood Pressure 137/70 136/63 O2 Sat by Pulse 100 100 Oximetry 02/28/19 02/28/19 02/28/19 01:00 02:01 02:57 Temperature 99.3 F Pulse Rate 80 81 Pulse Rate [ From Monitor] Respiratory 17 18 Rate Blood Pressure 137/69 126/36 O2 Sat by Pulse 100 100 Oximetry 02/28/19 02/28/19 02/28/19 03:00 04:00 04:41 Temperature Pulse Rate 81 89 110 H Pulse Rate [ 102 H From Monitor] Respiratory 22 19 Rate Blood Pressure 116/56 124/74 116/69 O2 Sat by Pulse 100 100 100 Oximetry 02/28/19 02/28/19 02/28/19 05:01 06:01 07:00 Temperature Pulse Rate 110 H 84 111 H Pulse Rate [ From Monitor] Respiratory 18 19 19 Rate Blood Pressure 111/63 118/75 95/61 O2 Sat by Pulse 100 100 98 Oximetry 02/28/19 02/28/19 02/28/19 07:48 08:00 08:45 Temperature 99.7 F H Pulse Rate 111 H 129 H Pulse Rate [ 111 H From Monitor] Respiratory 14 25 H Rate Blood Pressure 106/66 108/75 O2 Sat by Pulse 100 100 Oximetry 02/28/19 02/28/19 02/28/19 09:00 10:01 10:30 Temperature Pulse Rate 110 H 137 H 67 Pulse Rate [ From Monitor] Respiratory 13 18 Rate Blood Pressure 99/67 96/61 98/65 O2 Sat by Pulse 99 100 Oximetry - Lab 02/26/19 03:45 03/01/19 13:54 Most recent lab results Calcium 9.5 mg/dL (8.4-10.2) 02/26/19 03:45 Magnesium 2.20 mg/dL (1.7-2.3) 02/21/19 18:30 Medications & Allergies - Medications Allergies/Adverse Reactions: Allergies haloperidol [From Haldol] Adverse Reaction (Verified 03/13/18 12:10) Unknown haloperidol lactate [From Haldol] Adverse Reaction (Verified 03/13/18 12:10) Unknown Home Medications: Home Medications Medication Instructions Recorded Confirmed Last Taken Type risperiDONE [RisperDAL] 1 mg PO QAM 03/13/18 02/21/19 Unknown History Sertraline [Zoloft] 100 mg PO QDAY 08/26/18 02/21/19 Unknown History Polyethylene Glycol 3350 [Miralax 17 gm PO QDAY #30 packet 11/05/18 02/21/19 Unknown Rx 3350] Aspirin EC 81 mg PO DAILY #30 11/19/18 02/21/19 Unknown Rx Docusate Sodium [Colace CAP] 100 mg PO BID #60 11/19/18 02/21/19 Unknown Rx Folic Acid [Folvite] 1 mg PO DAILY #30 tab 11/19/18 02/21/19 Unknown Rx Famotidine [Pepcid] 20 mg PO DAILY tablet 12/08/18 02/21/19 Unknown Rx Gabapentin [Neurontin] 100 mg PO QHS capsule 12/08/18 02/21/19 Unknown Rx Metoprolol [Lopressor TAB] 50 mg PO BID 30 Days tablet 12/08/18 02/21/19 Unknown Rx Sevelamer Carbonate [Renvela] 800 mg PO TIDWM tablet 12/08/18 02/21/19 Unknown Rx hydrALAZINE [Apresoline TAB] 100 mg PO Q8HR #120 tablet 12/08/18 02/21/19 Unknown Rx Acetaminophen [Acetaminophen TAB] 650 mg PO Q12H PRN 12/15/18 02/21/19 Unknown History Glucagon,Human Recombinant 1 mg IJ Q15MIN PRN 12/15/18 02/21/19 Unknown History [Glucagon Emergency Kit] Insulin Aspart [NovoLOG 100 See Protocol SQ QWEEK 12/15/18 02/21/19 Unknown History UNITS/ML VIAL] Active Medications: Generic Name Dose Route Start Last Admin Trade Name Freq PRN Reason Stop Dose Admin Acetaminophen 650 mg 02/21/19 22:19 Tylenol PO Q4H PRN Pain MILD(1-3)/Fever >100.5/HILL Albuterol/Ipratropium 1 ampul 02/24/19 20:00 02/28/19 08:55 Duoneb *Not For Prn Use* IH 1 ampul TIDRT SANCHEZ Administration Lipase/Protease/Amylase 1 each 02/23/19 15:09 Pancreazkaren Barrientos 10,500 Unit FEEDTUBE PRN PRN For Clogged Feeding Tube Dextrose 50 ml 02/21/19 22:22 02/23/19 14:51 D50w (25gm) Syringe IV 50 ml PRN PRN Administration Hypoglycemia Enoxaparin Sodium 30 mg 02/23/19 10:00 02/28/19 10:31 Lovenox SUB-Q 30 mg QDAY SANCHEZ Administration Famotidine 20 mg 02/23/19 10:00 02/28/19 10:31 Pepcid PO 20 mg DAILY SANCHEZ Administration Hydrophilic Ointment 1 applic 02/21/19 18:24 Vaseline Lip Therapy TP Q2HR PRN Dry Lips Sodium Chloride 100 mls @ 999 mls/hr 02/26/19 09:00 Nacl 0.9% IV UMA PRN Hypotension Insulin Human Regular 0 units 02/26/19 12:00 02/28/19 05:52 Humulin R SUB-Q Not Given Q6HR [facility] Protocol Metoprolol Tartrate 25 mg 02/25/19 14:00 02/28/19 10:30 Lopressor PO Not Given TID SANCHEZ Multi-Ingred Cream/Lotion/Oil/Oint 1 applic 02/21/19 18:24 Artificial Tears Ophth Oint OU Q4HR PRN Dry Eye(s) Ondansetron HCl 4 mg 02/21/19 22:19 Zofran IV Q8H PRN Nausea And Vomiting Risperidone 1 mg 02/25/19 13:00 02/28/19 10:30 Risperdal PO 1 mg DAILY SANCHEZ Administration Sertraline HCl 100 mg 02/25/19 13:00 02/28/19 10:31 Zoloft PO 100 mg DAILY SANCHEZ Administration Simple Syrup 15 ml 02/23/19 15:09 Simple Syrup FEEDTUBE PRN PRN Hypoglycemia Simple Syrup 30 ml 02/23/19 15:09 Simple Syrup FEEDTUBE PRN PRN Hypoglycemia Sodium Bicarbonate 325 mg 02/23/19 15:09 Sodium Bicarbonate FEEDTUBE PRN PRN For Clogged Feeding Tube Sodium Chloride 10 ml 02/22/19 10:00 02/28/19 10:31 Sodium Chloride Flush Syringe 10 Ml IV 10 ml BID SANCHEZ Administration Sodium Chloride 10 ml 02/21/19 22:19 02/24/19 22:00 Sodium Chloride Flush Syringe 10 Ml IV 10 ml PRN PRN Administration LINE FLUSH
--- NOTE | 2019-02-28 12:10 | Progress Note ---
Assessment and Plan 63 y/o male with multiple medical issues admitted with altered mental status, acute respiratory failure requiring mechanical ventilation 1. Continue vent support 2. HD per renal 3. Agree with IMS, given multiple admissions and several events requiring intubation, trach and peg would be very reasonable.\ 4. CV-in regards to beta blockade, stopped PO and put patient on scheduled IV lopressor with PRN dosing inbetween. If this does not control rate and BP, will restart Oral's but with different parameters. CCT 31 minutes. Subjective Date of service: 02/28/19 Principal diagnosis: respiratory failure Interval history: Currently on PS 12/6 and 30%. ABG this am was good. Approached by nursing secondary to parameters for BB. Has made it difficult to control rate. Patient is awake and alert. Following commands. Objective Vital Signs - 12hr 02/28/19 02/28/19 02/28/19 01:00 02:01 02:57 Temperature 99.3 F Pulse Rate 80 81 Pulse Rate [ From Monitor] Respiratory 17 18 Rate Blood Pressure 137/69 126/36 O2 Sat by Pulse 100 100 Oximetry 02/28/19 02/28/19 02/28/19 03:00 04:00 04:41 Temperature Pulse Rate 81 89 110 H Pulse Rate [ 102 H From Monitor] Respiratory 22 19 Rate Blood Pressure 116/56 124/74 116/69 O2 Sat by Pulse 100 100 100 Oximetry 02/28/19 02/28/19 02/28/19 05:01 06:01 07:00 Temperature Pulse Rate 110 H 84 111 H Pulse Rate [ From Monitor] Respiratory 18 19 19 Rate Blood Pressure 111/63 118/75 95/61 O2 Sat by Pulse 100 100 98 Oximetry 02/28/19 02/28/19 02/28/19 07:48 08:00 08:45 Temperature 99.7 F H Pulse Rate 111 H 129 H Pulse Rate [ 111 H From Monitor] Respiratory 14 25 H Rate Blood Pressure 106/66 108/75 O2 Sat by Pulse 100 100 Oximetry 02/28/19 02/28/19 02/28/19 09:00 10:01 10:30 Temperature Pulse Rate 110 H 137 H 67 Pulse Rate [ From Monitor] Respiratory 13 18 Rate Blood Pressure 99/67 96/61 98/65 O2 Sat by Pulse 99 100 Oximetry 02/28/19 11:33 Temperature Pulse Rate 141 H Pulse Rate [ From Monitor] Respiratory Rate Blood Pressure 125/75 O2 Sat by Pulse Oximetry Constitutional: alert, other (critically ill on vent) Eyes: non-icteric Effort: normal Ascultation: Bilateral: diminished breath sounds, other (coarse BS bilaterally) Percussion: Bilateral: not dull Cardiovascular: regular rate and rhythm (no mrg) Gastrointestinal: normoactive bowel sounds, soft, non-tender, non-distended Extremities: no edema, pink and warm Neurologic: other (somnolent, minimally arousable, squeezes with R and L hand and wiggles toes on command) Psychiatric: other (unable to assess) CBC and BMP: 02/26/19 03:45 02/26/19 03:45 ABG, PT/INR, D-dimer: ABG POC ABG pH 7.483 (7.35-7.45) H 02/27/19 04:35 POC ABG pCO2 37.5 (35-45) 02/27/19 04:35 POC ABG pO2 61 (80-105) L 02/27/19 04:35 POC ABG HCO3 28.1 (22-26 mml/L) 02/27/19 04:35 POC ABG Total CO2 29 (23-27mmol/L) 02/27/19 04:35 POC ABG O2 Sat 93 02/27/19 04:35 PT/INR, D-dimer 2987.82 ng/mlDDU (0-234) H 02/22/19 05:54 Abnormal lab findings: Abnormal Labs 02/21/19 02/21/19 02/21/19 18:30 18:30 18:30 RBC 3.26 L Hgb 8.8 L Hct 29.0 L MCH 27 L MCHC 30 L RDW 19.1 H Lymph % (Auto) 6.1 L Lymph # 0.4 L Seg Neutrophils % 86.2 H D-Dimer POC ABG pH POC ABG pCO2 POC ABG pO2 Sodium 133 L Potassium 3.3 L Chloride 93.1 L Carbon Dioxide 33 H BUN Creatinine Glucose 161 H POC Glucose Alkaline Phosphatase 136 H Total Creatine Kinase 37 L CK-MB (CK-2) Rel Index Troponin T 0.192 H* Albumin 2.4 L LDL Cholesterol Direct 36 L Salicylates Acetaminophen 02/21/19 02/21/19 02/21/19 18:42 20:04 20:04 RBC Hgb Hct MCH MCHC RDW Lymph % (Auto) Lymph # Seg Neutrophils % D-Dimer POC ABG pH POC ABG pCO2 56.7 H POC ABG pO2 291 H Sodium Potassium Chloride Carbon Dioxide BUN Creatinine Glucose POC Glucose Alkaline Phosphatase Total Creatine Kinase CK-MB (CK-2) Rel Index Troponin T Albumin LDL Cholesterol Direct Salicylates < 0.3 L Acetaminophen < 5.0 L 02/21/19 02/22/19 02/22/19 22:35 03:42 03:42 RBC 3.20 L Hgb 8.8 L Hct 27.6 L MCH MCHC RDW 18.9 H Lymph % (Auto) 7.4 L Lymph # 0.7 L Seg Neutrophils % 84.7 H D-Dimer POC ABG pH POC ABG pCO2 POC ABG pO2 Sodium 134 L Potassium 2.6 L* D Chloride Carbon Dioxide BUN Creatinine Glucose POC Glucose Alkaline Phosphatase Total Creatine Kinase CK-MB (CK-2) Rel Index 5.2 H Troponin T 0.202 H* Albumin LDL Cholesterol Direct Salicylates Acetaminophen 02/22/19 02/22/19 02/22/19 03:42 05:54 09:04 RBC Hgb Hct MCH MCHC RDW Lymph % (Auto) Lymph # Seg Neutrophils % D-Dimer 2987.82 H POC ABG pH 7.451 H POC ABG pCO2 POC ABG pO2 Sodium Potassium Chloride Carbon Dioxide BUN Creatinine Glucose POC Glucose Alkaline Phosphatase Total Creatine Kinase CK-MB (CK-2) Rel Index 5.7 H Troponin T 0.193 H* Albumin LDL Cholesterol Direct Salicylates Acetaminophen 02/22/19 02/22/19 02/23/19 10:36 23:56 00:52 RBC Hgb Hct MCH MCHC RDW Lymph % (Auto) Lymph # Seg Neutrophils % D-Dimer POC ABG pH POC ABG pCO2 POC ABG pO2 Sodium Potassium 3.1 L Chloride Carbon Dioxide BUN Creatinine Glucose POC Glucose 58 L 111 H Alkaline Phosphatase Total Creatine Kinase CK-MB (CK-2) Rel Index Troponin T Albumin LDL Cholesterol Direct Salicylates Acetaminophen 02/23/19 02/23/19 02/23/19 05:00 06:35 14:26 RBC Hgb Hct MCH MCHC RDW Lymph % (Auto) Lymph # Seg Neutrophils % D-Dimer POC ABG pH POC ABG pCO2 POC ABG pO2 Sodium 135 L Potassium 3.1 L Chloride Carbon Dioxide BUN 21 H Creatinine 2.0 H Glucose 57 L POC Glucose 64 L 62 L Alkaline Phosphatase Total Creatine Kinase CK-MB (CK-2) Rel Index Troponin T Albumin LDL Cholesterol Direct Salicylates Acetaminophen 02/24/19 02/24/19 02/24/19 02:11 04:12 04:55 RBC 2.84 L Hgb 7.8 L Hct 24.5 L MCH MCHC RDW 19.5 H Lymph % (Auto) Lymph # Seg Neutrophils % D-Dimer POC ABG pH 7.511 H POC ABG pCO2 33.9 L POC ABG pO2 62 L Sodium Potassium Chloride Carbon Dioxide BUN Creatinine Glucose POC Glucose 69 L Alkaline Phosphatase Total Creatine Kinase CK-MB (CK-2) Rel Index Troponin T Albumin LDL Cholesterol Direct Salicylates Acetaminophen 02/24/19 02/24/19 02/25/19 04:55 05:41 04:45 RBC Hgb Hct MCH MCHC RDW Lymph % (Auto) Lymph # Seg Neutrophils % D-Dimer POC ABG pH 7.466 H POC ABG pCO2 POC ABG pO2 75 L Sodium Potassium Chloride Carbon Dioxide BUN Creatinine 1.8 H Glucose 73 L POC Glucose 127 H Alkaline Phosphatase Total Creatine Kinase CK-MB (CK-2) Rel Index Troponin T Albumin LDL Cholesterol Direct Salicylates Acetaminophen 02/25/19 02/25/19 02/26/19 16:34 21:33 03:45 RBC 2.96 L Hgb 8.0 L Hct 25.8 L MCH 27 L MCHC 31 L RDW 20.0 H Lymph % (Auto) Lymph # Seg Neutrophils % D-Dimer POC ABG pH POC ABG pCO2 POC ABG pO2 Sodium Potassium Chloride Carbon Dioxide BUN Creatinine Glucose POC Glucose 141 H 106 H Alkaline Phosphatase Total Creatine Kinase CK-MB (CK-2) Rel Index Troponin T Albumin LDL Cholesterol Direct Salicylates Acetaminophen 02/26/19 02/26/19 02/26/19 03:45 04:13 07:53 RBC Hgb Hct MCH MCHC RDW Lymph % (Auto) Lymph # Seg Neutrophils % D-Dimer POC ABG pH 7.470 H POC ABG pCO2 POC ABG pO2 Sodium Potassium Chloride Carbon Dioxide BUN Creatinine 1.8 H Glucose POC Glucose 110 H Alkaline Phosphatase Total Creatine Kinase CK-MB (CK-2) Rel Index Troponin T Albumin LDL Cholesterol Direct Salicylates Acetaminophen 02/26/19 02/26/19 02/27/19 11:56 17:43 00:12 RBC Hgb Hct MCH MCHC RDW Lymph % (Auto) Lymph # Seg Neutrophils % D-Dimer POC ABG pH POC ABG pCO2 POC ABG pO2 Sodium Potassium Chloride Carbon Dioxide BUN Creatinine Glucose POC Glucose 112 H 127 H 127 H Alkaline Phosphatase Total Creatine Kinase CK-MB (CK-2) Rel Index Troponin T Albumin LDL Cholesterol Direct Salicylates Acetaminophen 02/27/19 02/27/19 02/27/19 04:35 13:15 18:02 RBC Hgb Hct MCH MCHC RDW Lymph % (Auto) Lymph # Seg Neutrophils % D-Dimer POC ABG pH 7.483 H POC ABG pCO2 POC ABG pO2 61 L Sodium Potassium Chloride Carbon Dioxide BUN Creatinine Glucose POC Glucose 143 H 106 H Alkaline Phosphatase Total Creatine Kinase CK-MB (CK-2) Rel Index Troponin T Albumin LDL Cholesterol Direct Salicylates Acetaminophen 02/28/19 05:50 RBC Hgb Hct MCH MCHC RDW Lymph % (Auto) Lymph # Seg Neutrophils % D-Dimer POC ABG pH POC ABG pCO2 POC ABG pO2 Sodium Potassium Chloride Carbon Dioxide BUN Creatinine Glucose POC Glucose 134 H Alkaline Phosphatase Total Creatine Kinase CK-MB (CK-2) Rel Index Troponin T Albumin LDL Cholesterol Direct Salicylates Acetaminophen
[2019-02-28] MEDS: METOPROLOL TARTRATE 5 MG/5 ML INJ IV PRN (13:38)
[2019-02-28] MEDS: METOPROLOL TARTRATE 5 MG/5 ML INJ IV SCH (18:02)
[2019-03-01] MEDS: INSULIN REGULAR, HUMAN 100 UNITS/1 ML SUB-Q SCH ×4 (00:33→18:02)
[2019-03-01] MEDS: METOPROLOL TARTRATE 5 MG/5 ML INJ IV SCH ×4 (00:38→18:02)
--- NOTE | 2019-03-01 08:19 | Progress Note ---
Assessment and Plan Assessment and plan: Patient is a 63-year-old -[place] man from [facility] with a plethora of co-morbidities including blindness, CVA, CHF, PPM/ICD, loop recorder since 2012 that is MRI compatible, IDDM type 2, sepsis left foot ulcer, afib, ESRD with complications on HD TTS, hypertension, AOCD and GERD who presented to the ED with hypotensive after intubation in the emergency room. Still intubated, diagnosed with fluid overload, pleural effusion. Patient has had recurrent admission in the hospital for similar reason and was recently discharged from the hospital following treatment of Severe Sepsis due to Necrotizing Unstagable sacral decubitus ulcer with ostemomylitis, expected to complete abx on discharge till 02/16/19. 24 hr update: awaiting Surgery consulted for trach and peg and possible LTAC transfer with anticipated longer weaning process and wound care management. HR control improved with change in BB. INR test sent in prep for trach and peg. Acute respiratory failure on mechanical ventilator >96 hrs Intubated, Pulm consulted weaning trial VAP BUNDLE ASPIRATION BUNDLE Acute pulmonary edema, fluid overload on CXR repeat xray intermittently Dialysis Dilated CMP Continue diuresis Acute encephalopathy, probably metabolic or toxic Continues on Mechanical ventilator. ESRD on hemodialysis nephrology following Vascular eval. done re: LUE AV graft, see note Bilateral pleural effusions Anticipate improvement with Permanent atrial fibrillation and flutter Not on anticoagulation because of anemia thrombocytopenia Change noted to BB agent to IV. 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 -Pt is s/p x1 DDVAP RUL atelectasis, probably mucous plugging DVT prophylaxis Lovenox Full code status poor prognosis The high probability of a clinically significant, sudden or life threatening deterioration of the [pulmonary, neuro, renal] system(s) required my full and direct attention, intervention and personal management. The aggregate critical care time was [35] minutes. This time is in addition to time spent performing reported procedures but includes the following: [x] Data Review and interpretation [x] Patient assessment and monitoring of vital signs [] Documentation [x] Medication orders and management History Interval history: Patient seen and examined remains intubated, encephalopathic, no new complaints. Not tolerating weaning trials. Had some bowel movements today despite the colostomy bag. Hospitalist Physical - Physical exam Narrative exam: Gen: Not in acute distress, lying in bed, intubated, not following commands HEENT: Normocephalic, atraumatic Neck: supple, no JVD Heart: S1 and S2 irreg, no murmurs, rubs or gallop Lungs: Bilateral crackles, no wheeze Abd: soft, non tender, non distended, normal BS, PRG tube, Colostomy bag in place, brown stool present, wound dressing in place. Ext: No edema, no clubbing, no cyanosis, ulcer left 5th finger, echymosis Neuro: Intubated MSK: Sacral wound, See wound documentation for detailed exam - Constitutional Vitals: Temp Pulse Resp BP Pulse Ox 99.3 F 82 20 131/71 100 03/01/19 07:58 03/01/19 08:00 03/01/19 08:00 03/01/19 08:00 03/01/19 08:00 General appearance: Present: no acute distress Results - Labs CBC & Chem 7: 02/26/19 03:45 02/26/19 03:45 Labs: Laboratory Last Values WBC 8.4 K/mm3 (4.5-11.0) 02/26/19 03:45 RBC 2.96 M/mm3 (3.65-5.03) L 02/26/19 03:45 Hgb 8.0 gm/dl (11.8-15.2) L 02/26/19 03:45 Hct 25.8 % (35.5-45.6) L 02/26/19 03:45 MCV 87 fl (84-94) 02/26/19 03:45 MCH 27 pg (28-32) L 02/26/19 03:45 MCHC 31 % (32-34) L 02/26/19 03:45 RDW 20.0 % (13.2-15.2) H 02/26/19 03:45 Plt Count 249 K/mm3 (140-440) 02/26/19 03:45 Lymph % (Auto) 7.4 % (13.4-35.0) L 02/22/19 03:42 [place] % (Auto) 5.4 % (0.0-7.3) 02/22/19 03:42 Eos % (Auto) 1.7 % (0.0-4.3) 02/22/19 03:42 Baso % (Auto) 0.8 % (0.0-1.8) 02/22/19 03:42 Lymph # 0.7 K/mm3 (1.2-5.4) L 02/22/19 03:42 Sargent # 0.5 K/mm3 (0.0-0.8) 02/22/19 03:42 Eos # 0.2 K/mm3 (0.0-0.4) 02/22/19 03:42 Baso # 0.1 K/mm3 (0.0-0.1) 02/22/19 03:42 Seg Neutrophils % 84.7 % (40.0-70.0) H 02/22/19 03:42 Seg Neutrophils # 7.6 K/mm3 (1.8-7.7) 02/22/19 03:42 APTT 33.7 Sec. (24.2-36.6) 02/21/19 18:30 2987.82 ng/mlDDU (0-234) H 02/22/19 05:54 POC ABG pH 7.483 (7.35-7.45) H 02/27/19 04:35 POC ABG pCO2 37.5 (35-45) 02/27/19 04:35 POC ABG pO2 61 (80-105) L 02/27/19 04:35 POC ABG HCO3 28.1 (22-26 mml/L) 02/27/19 04:35 POC ABG Total CO2 29 (23-27mmol/L) 02/27/19 04:35 POC ABG O2 Sat 93 02/27/19 04:35 POC ABG Base Excess 5 ((-2) - (+3)mmol/L) 02/27/19 04:35 30 % 02/27/19 04:35 Sodium 139 mmol/L (137-145) 02/26/19 03:45 Potassium 3.9 mmol/L (3.6-5.0) 02/26/19 03:45 Chloride 101.2 mmol/L (98-107) 02/26/19 03:45 Carbon Dioxide 30 mmol/L (22-30) 02/26/19 03:45 12 mmol/L 02/26/19 03:45 BUN 13 mg/dL (9-20) 02/26/19 03:45 1.8 mg/dL (0.8-1.5) H 02/26/19 03:45 Estimated GFR 46 ml/min 02/26/19 03:45 7 % 02/26/19 03:45 Glucose 77 mg/dL (75-100) 02/26/19 03:45 POC Glucose 111 (70-105) H 03/01/19 05:40 Lactic Acid 1.00 mmol/L (0.7-2.0) 02/21/19 20:58 Calcium 9.5 mg/dL (8.4-10.2) 02/26/19 03:45 Magnesium 2.20 mg/dL (1.7-2.3) 02/21/19 18:30 0.20 mg/dL (0.1-1.2) 02/21/19 18:30 AST 17 units/L (5-40) 02/21/19 18:30 ALT 7 units/L (7-56) 02/21/19 18:30 136 units/L (35-129) H 02/21/19 18:30 28.0 umol/L (25-60) 02/21/19 20:04 64 units/L (55-170) 02/22/19 03:42 CK-MB (CK-2) 3.7 ng/mL (0.0-4.0) 02/22/19 03:42 CK-MB (CK-2) Rel Index 5.7 (0-4) H 02/22/19 03:42 0.193 ng/mL (0.00-0.029) H* 02/22/19 03:42 6.7 g/dL (6.3-8.2) 02/21/19 18:30 2.4 g/dL (3.9-5) L 02/21/19 18:30 0.6 % 02/21/19 18:30 Triglycerides 51 mg/dL (2-149) 02/21/19 18:30 Cholesterol 82 mg/dL (50-199) 02/21/19 18:30 36 mg/dL (50-130) L 02/21/19 18:30 40 mg/dL (40-59) 02/21/19 18:30 2.05 % 02/21/19 18:30 TSH 2.760 mlU/mL (0.270-4.200) 02/21/19 20:04 Salicylates < 0.3 mg/dL (2.8-20.0) L 02/21/19 20:04 Acetaminophen < 5.0 ug/mL (10.0-30.0) L 02/21/19 20:04 Hepatitis A IgM Ab Non-reactive (NonReactive) 02/23/19 11:20 Hep Bs Antigen Non-reactive (Negative) 02/23/19 11:20 Hep B Core IgM Ab Non-reactive (NonReactive) 02/23/19 11:20 Non-reactive (NonReactive) 02/23/19 11:20 Active Medications - Current Medications Current Medications: Generic Name Dose Route Start Last Admin Trade Name Freq PRN Reason Stop Dose Admin Acetaminophen 650 mg 02/21/19 22:19 Tylenol PO Q4H PRN Pain MILD(1-3)/Fever >100.5/HILL Albuterol/Ipratropium 1 ampul 02/24/19 20:00 02/28/19 20:11 Duoneb *Not For Prn Use* IH 1 ampul TIDRT SANCHEZ Administration Lipase/Protease/Amylase 1 each 02/23/19 15:09 Pancrejewel Barrientos 10,500 Unit FEEDTUBE PRN PRN For Clogged Feeding Tube Dextrose 50 ml 02/21/19 22:22 02/23/19 14:51 D50w (25gm) Syringe IV 50 ml PRN PRN Administration Hypoglycemia Enoxaparin Sodium 30 mg 02/23/19 10:00 02/28/19 10:31 Lovenox SUB-Q 30 mg QDAY SANCHEZ Administration Famotidine 20 mg 02/23/19 10:00 02/28/19 10:31 Pepcid PO 20 mg DAILY SANCHEZ Administration Hydrophilic Ointment 1 applic 02/21/19 18:24 Vaseline Lip Therapy TP Q2HR PRN Dry Lips Sodium Chloride 100 mls @ 999 mls/hr 02/26/19 09:00 Nacl 0.9% IV UMA PRN Hypotension Insulin Human Regular 0 units 02/26/19 12:00 03/01/19 06:10 Humulin R SUB-Q Not Given Q6HR [facility] Protocol Metoprolol Tartrate 5 mg 02/28/19 18:00 03/01/19 06:36 Lopressor IV 5 mg Q6HR SANCHEZ Administration Metoprolol Tartrate 2.5 mg 02/28/19 12:06 02/28/19 13:38 Lopressor IV 2.5 mg Q4HR PRN Administration Tachycardia Multi-Ingred Cream/Lotion/Oil/Oint 1 applic 02/21/19 18:24 Artificial Tears Ophth Oint OU Q4HR PRN Dry Eye(s) Ondansetron HCl 4 mg 02/21/19 22:19 Zofran IV Q8H PRN Nausea And Vomiting Risperidone 1 mg 02/25/19 13:00 02/28/19 10:30 Risperdal PO 1 mg DAILY SANCHEZ Administration Sertraline HCl 100 mg 02/25/19 13:00 02/28/19 10:31 Zoloft PO 100 mg DAILY SANCHEZ Administration Simple Syrup 15 ml 02/23/19 15:09 Simple Syrup FEEDTUBE PRN PRN Hypoglycemia Simple Syrup 30 ml 02/23/19 15:09 Simple Syrup FEEDTUBE PRN PRN Hypoglycemia Sodium Bicarbonate 325 mg 02/23/19 15:09 Sodium Bicarbonate FEEDTUBE PRN PRN For Clogged Feeding Tube Sodium Chloride 10 ml 02/22/19 10:00 02/28/19 22:00 Sodium Chloride Flush Syringe 10 Ml IV 10 ml BID SANCHEZ Administration Sodium Chloride 10 ml 02/21/19 22:19 02/24/19 22:00 Sodium Chloride Flush Syringe 10 Ml IV 10 ml PRN PRN Administration LINE FLUSH Nutrition/Malnutrition Assess - Dietary Evaluation Nutrition/Malnutrition Findings: Nutrition Notes Start: 02/22/19 12:51 Freq: Status: Active Protocol: Document 02/26/19 13:54 RM (Rec: 02/26/19 13:59 RM [id number]) Nutrition Notes Initial or Follow up Reassessment Current Diagnosis Diabetes,Hypertension Other Pertinent Diagnosis Sacral PU, ESRD on HD (T/Thurs /Sat), Schizophrenia, Blind in L eye Current Diet Vital 1.2 at 70 ml/hr Labs/Tests K 3.9 Pertinent Medications Reviewed Height 5 ft 10 in Weight 88.7 kg [place] Body Weight (kg) 75.45 BMI 28.0 Subjective/Other Information Observed Vital 1.2 infusing at goal rate. Per nurse pt is tolerating TF and receiving Abhilash. Percent of energy/protein needs met: 100%/100% Burn Absent Trauma Absent #2 Nutrition Diagnosis Increased nutrient needs ( specify in comment below) Diagnosis Progress(for reassessment Continues documentation) #1 Nutrition Diagnosis Inadequate oral intake Diagnosis Progress(for reassessment Continues documentation) Is patient on ventilator? Yes Is Patient Ambulatory and/or Out of Bed No REE-([facility]-confined to bed) Calculation Used for Recommendations Kcal/kg Additional Notes Protein Needs: 106-177g (1.2- 2g/kg) Fluid Needs: 1 ml/kcal Nutrition Intervention Nutrition Support: Vital 1.2 at 70 ml/hr Water flush of 100 mls q 4 hrs Kcal 2,016 Protein (gm) 126 Fluid (mL) 1,362 Add Supplement/Snack (indicate name/kcal Abhilash BID /protein ) Provides kCal: 190 Provides Protein (gm) 5 Goal #1 TF tolerance Goal #2 Continue to meet at least 80% of calorie and protein needs via TF Anticipated Discharge Needs: Unable to determine at this time Follow-Up By: 03/05/19 Additional Comments Follow for TF tolerance
[2019-03-01] MEDS: IPRATROPIUM/ALBUTEROL SULFATE 3 ML AMPUL.NEB IH SCH ×3 (08:55→20:02)
[2019-03-01 10:05] LABS: INR 1.35 (0.87-1.13)
[2019-03-01] MEDS: ENOXAPARIN 30 MG/0.3 ML INJ SUB-Q SCH (10:31)
[2019-03-01] MEDS: risperiDONE 1 MG TAB PO SCH (10:31)
[2019-03-01] MEDS: SERTRALINE 100 MG TAB PO SCH (10:31)
[2019-03-01] MEDS: FAMOTIDINE 20 MG TAB PO SCH (10:31)
[2019-03-01] MEDS: METOPROLOL TARTRATE 5 MG/5 ML INJ IV PRN (10:32)
--- NOTE | 2019-03-01 10:36 | Progress Note ---
Assessment and Plan 63 y/o male with multiple medical issues admitted with altered mental status, acute respiratory failure requiring mechanical ventilation 1. Continue vent support 2. HD per renal 3. Agree with IMS, given multiple admissions and several events requiring intubation, trach and peg would be very reasonable.\ 4. CV-COntinue scheduled IV lopressor therapy. with PRN's available. 5. Await surgery eval for trach placement. CCT 31 minutes. Subjective Date of service: 03/01/19 Principal diagnosis: respiratory failure Interval history: No acute events. Per nursing had a small BM but patient also has a colostomy? Not sure how this happened. HR better and BP better with IV lopressor. Consulted surgery yesterday, await their evaluation. Objective Vital Signs - 12hr 02/28/19 02/28/19 03/01/19 23:00 23:40 00:00 Temperature 99.0 F Pulse Rate 101 H 101 H Pulse Rate [ Anterior Bilateral Throughout] Pulse Rate [ 83 From Monitor] Respiratory 20 20 Rate Respiratory Rate [Anterior Bilateral Throughout] Blood Pressure 132/71 147/77 O2 Sat by Pulse 97 100 Oximetry 03/01/19 03/01/19 03/01/19 00:38 01:00 02:00 Temperature Pulse Rate 83 83 110 H Pulse Rate [ Anterior Bilateral Throughout] Pulse Rate [ From Monitor] Respiratory 16 22 Rate Respiratory Rate [Anterior Bilateral Throughout] Blood Pressure 136/71 143/71 145/70 O2 Sat by Pulse 100 100 Oximetry 03/01/19 03/01/19 03/01/19 03:00 03:26 04:00 Temperature 99.3 F Pulse Rate 81 86 85 Pulse Rate [ Anterior Bilateral Throughout] Pulse Rate [ 82 From Monitor] Respiratory 18 18 Rate Respiratory Rate [Anterior Bilateral Throughout] Blood Pressure 128/76 137/71 131/64 O2 Sat by Pulse 100 100 98 Oximetry 03/01/19 03/01/19 03/01/19 05:00 06:00 06:36 Temperature Pulse Rate 82 86 82 Pulse Rate [ Anterior Bilateral Throughout] Pulse Rate [ From Monitor] Respiratory 14 17 Rate Respiratory Rate [Anterior Bilateral Throughout] Blood Pressure 124/67 129/65 130/67 O2 Sat by Pulse 99 100 Oximetry 03/01/19 03/01/19 03/01/19 07:00 07:58 08:00 Temperature 99.3 F Pulse Rate 82 82 Pulse Rate [ Anterior Bilateral Throughout] Pulse Rate [ From Monitor] Respiratory 20 20 Rate Respiratory Rate [Anterior Bilateral Throughout] Blood Pressure 128/71 131/71 O2 Sat by Pulse 100 100 Oximetry 03/01/19 03/01/19 03/01/19 08:10 08:18 10:32 Temperature Pulse Rate 112 H 149 H Pulse Rate [ 109 H Anterior Bilateral Throughout] Pulse Rate [ From Monitor] Respiratory 24 Rate Respiratory 17 Rate [Anterior Bilateral Throughout] Blood Pressure 134/69 O2 Sat by Pulse 200 H Oximetry Constitutional: alert, other (critically ill on vent) Eyes: non-icteric Effort: normal Ascultation: Bilateral: diminished breath sounds, other (coarse BS bilaterally) Percussion: Bilateral: not dull Cardiovascular: regular rate and rhythm (no mrg) Gastrointestinal: normoactive bowel sounds, soft, non-tender, non-distended Extremities: no edema, pink and warm Neurologic: other (somnolent, minimally arousable, squeezes with R and L hand and wiggles toes on command) Psychiatric: other (unable to assess) CBC and BMP: 02/26/19 03:45 02/26/19 03:45 ABG, PT/INR, D-dimer: ABG POC ABG pH 7.483 (7.35-7.45) H 02/27/19 04:35 POC ABG pCO2 37.5 (35-45) 02/27/19 04:35 POC ABG pO2 61 (80-105) L 02/27/19 04:35 POC ABG HCO3 28.1 (22-26 mml/L) 02/27/19 04:35 POC ABG Total CO2 29 (23-27mmol/L) 02/27/19 04:35 POC ABG O2 Sat 93 02/27/19 04:35 PT/INR, D-dimer PT 16.3 Sec. (12.2-14.9) H 03/01/19 09:39 INR 1.35 (0.87-1.13) H 03/01/19 09:39 2987.82 ng/mlDDU (0-234) H 02/22/19 05:54 Abnormal lab findings: Abnormal Labs 02/21/19 02/21/19 02/21/19 18:30 18:30 18:30 RBC 3.26 L Hgb 8.8 L Hct 29.0 L MCH 27 L MCHC 30 L RDW 19.1 H Lymph % (Auto) 6.1 L Lymph # 0.4 L Seg Neutrophils % 86.2 H PT INR D-Dimer POC ABG pH POC ABG pCO2 POC ABG pO2 Sodium 133 L Potassium 3.3 L Chloride 93.1 L Carbon Dioxide 33 H BUN Creatinine Glucose 161 H POC Glucose Alkaline Phosphatase 136 H Total Creatine Kinase 37 L CK-MB (CK-2) Rel Index Troponin T 0.192 H* Albumin 2.4 L LDL Cholesterol Direct 36 L Salicylates Acetaminophen 02/21/19 02/21/19 02/21/19 18:42 20:04 20:04 RBC Hgb Hct MCH MCHC RDW Lymph % (Auto) Lymph # Seg Neutrophils % PT INR D-Dimer POC ABG pH POC ABG pCO2 56.7 H POC ABG pO2 291 H Sodium Potassium Chloride Carbon Dioxide BUN Creatinine Glucose POC Glucose Alkaline Phosphatase Total Creatine Kinase CK-MB (CK-2) Rel Index Troponin T Albumin LDL Cholesterol Direct Salicylates < 0.3 L Acetaminophen < 5.0 L 02/21/19 02/22/19 02/22/19 22:35 03:42 03:42 RBC 3.20 L Hgb 8.8 L Hct 27.6 L MCH MCHC RDW 18.9 H Lymph % (Auto) 7.4 L Lymph # 0.7 L Seg Neutrophils % 84.7 H PT INR D-Dimer POC ABG pH POC ABG pCO2 POC ABG pO2 Sodium 134 L Potassium 2.6 L* D Chloride Carbon Dioxide BUN Creatinine Glucose POC Glucose Alkaline Phosphatase Total Creatine Kinase CK-MB (CK-2) Rel Index 5.2 H Troponin T 0.202 H* Albumin LDL Cholesterol Direct Salicylates Acetaminophen 02/22/19 02/22/19 02/22/19 03:42 05:54 09:04 RBC Hgb Hct MCH MCHC RDW Lymph % (Auto) Lymph # Seg Neutrophils % PT INR D-Dimer 2987.82 H POC ABG pH 7.451 H POC ABG pCO2 POC ABG pO2 Sodium Potassium Chloride Carbon Dioxide BUN Creatinine Glucose POC Glucose Alkaline Phosphatase Total Creatine Kinase CK-MB (CK-2) Rel Index 5.7 H Troponin T 0.193 H* Albumin LDL Cholesterol Direct Salicylates Acetaminophen 02/22/19 02/22/19 02/23/19 10:36 23:56 00:52 RBC Hgb Hct MCH MCHC RDW Lymph % (Auto) Lymph # Seg Neutrophils % PT INR D-Dimer POC ABG pH POC ABG pCO2 POC ABG pO2 Sodium Potassium 3.1 L Chloride Carbon Dioxide BUN Creatinine Glucose POC Glucose 58 L 111 H Alkaline Phosphatase Total Creatine Kinase CK-MB (CK-2) Rel Index Troponin T Albumin LDL Cholesterol Direct Salicylates Acetaminophen 02/23/19 02/23/19 02/23/19 05:00 06:35 14:26 RBC Hgb Hct MCH MCHC RDW Lymph % (Auto) Lymph # Seg Neutrophils % PT INR D-Dimer POC ABG pH POC ABG pCO2 POC ABG pO2 Sodium 135 L Potassium 3.1 L Chloride Carbon Dioxide BUN 21 H Creatinine 2.0 H Glucose 57 L POC Glucose 64 L 62 L Alkaline Phosphatase Total Creatine Kinase CK-MB (CK-2) Rel Index Troponin T Albumin LDL Cholesterol Direct Salicylates Acetaminophen 02/24/19 02/24/19 02/24/19 02:11 04:12 04:55 RBC 2.84 L Hgb 7.8 L Hct 24.5 L MCH MCHC RDW 19.5 H Lymph % (Auto) Lymph # Seg Neutrophils % PT INR D-Dimer POC ABG pH 7.511 H POC ABG pCO2 33.9 L POC ABG pO2 62 L Sodium Potassium Chloride Carbon Dioxide BUN Creatinine Glucose POC Glucose 69 L Alkaline Phosphatase Total Creatine Kinase CK-MB (CK-2) Rel Index Troponin T Albumin LDL Cholesterol Direct Salicylates Acetaminophen 02/24/19 02/24/19 02/25/19 04:55 05:41 04:45 RBC Hgb Hct MCH MCHC RDW Lymph % (Auto) Lymph # Seg Neutrophils % PT INR D-Dimer POC ABG pH 7.466 H POC ABG pCO2 POC ABG pO2 75 L Sodium Potassium Chloride Carbon Dioxide BUN Creatinine 1.8 H Glucose 73 L POC Glucose 127 H Alkaline Phosphatase Total Creatine Kinase CK-MB (CK-2) Rel Index Troponin T Albumin LDL Cholesterol Direct Salicylates Acetaminophen 02/25/19 02/25/19 02/26/19 16:34 21:33 03:45 RBC 2.96 L Hgb 8.0 L Hct 25.8 L MCH 27 L MCHC 31 L RDW 20.0 H Lymph % (Auto) Lymph # Seg Neutrophils % PT INR D-Dimer POC ABG pH POC ABG pCO2 POC ABG pO2 Sodium Potassium Chloride Carbon Dioxide BUN Creatinine Glucose POC Glucose 141 H 106 H Alkaline Phosphatase Total Creatine Kinase CK-MB (CK-2) Rel Index Troponin T Albumin LDL Cholesterol Direct Salicylates Acetaminophen 02/26/19 02/26/19 02/26/19 03:45 04:13 07:53 RBC Hgb Hct MCH MCHC RDW Lymph % (Auto) Lymph # Seg Neutrophils % PT INR D-Dimer POC ABG pH 7.470 H POC ABG pCO2 POC ABG pO2 Sodium Potassium Chloride Carbon Dioxide BUN Creatinine 1.8 H Glucose POC Glucose 110 H Alkaline Phosphatase Total Creatine Kinase CK-MB (CK-2) Rel Index Troponin T Albumin LDL Cholesterol Direct Salicylates Acetaminophen 02/26/19 02/26/19 02/27/19 11:56 17:43 00:12 RBC Hgb Hct MCH MCHC RDW Lymph % (Auto) Lymph # Seg Neutrophils % PT INR D-Dimer POC ABG pH POC ABG pCO2 POC ABG pO2 Sodium Potassium Chloride Carbon Dioxide BUN Creatinine Glucose POC Glucose 112 H 127 H 127 H Alkaline Phosphatase Total Creatine Kinase CK-MB (CK-2) Rel Index Troponin T Albumin LDL Cholesterol Direct Salicylates Acetaminophen 02/27/19 02/27/19 02/27/19 04:35 13:15 18:02 RBC Hgb Hct MCH MCHC RDW Lymph % (Auto) Lymph # Seg Neutrophils % PT INR D-Dimer POC ABG pH 7.483 H POC ABG pCO2 POC ABG pO2 61 L Sodium Potassium Chloride Carbon Dioxide BUN Creatinine Glucose POC Glucose 143 H 106 H Alkaline Phosphatase Total Creatine Kinase CK-MB (CK-2) Rel Index Troponin T Albumin LDL Cholesterol Direct Salicylates Acetaminophen 02/28/19 02/28/19 02/28/19 05:50 11:59 17:52 RBC Hgb Hct MCH MCHC RDW Lymph % (Auto) Lymph # Seg Neutrophils % PT INR D-Dimer POC ABG pH POC ABG pCO2 POC ABG pO2 Sodium Potassium Chloride Carbon Dioxide BUN Creatinine Glucose POC Glucose 134 H 128 H 142 H Alkaline Phosphatase Total Creatine Kinase CK-MB (CK-2) Rel Index Troponin T Albumin LDL Cholesterol Direct Salicylates Acetaminophen 02/28/19 03/01/19 03/01/19 23:13 05:40 09:39 RBC Hgb Hct MCH MCHC RDW Lymph % (Auto) Lymph # Seg Neutrophils % PT 16.3 H INR 1.35 H D-Dimer POC ABG pH POC ABG pCO2 POC ABG pO2 Sodium Potassium Chloride Carbon Dioxide BUN Creatinine Glucose POC Glucose 112 H 111 H Alkaline Phosphatase Total Creatine Kinase CK-MB (CK-2) Rel Index Troponin T Albumin LDL Cholesterol Direct Salicylates Acetaminophen
--- NOTE | 2019-03-01 11:07 | Consultation ---
History of Present Illness Consult date: 03/01/19 Reason for consult: other (trach evaluation) Requesting physician: KAYLEE PRITCHARD Chief complaint: respiratory failure - History of present illness History of present illness: 63yo M who is well-known to our service as we recently performed a laparoscopic diverting colostomy on him this past December, returns to the hospital with respiratory depression. He was intubated in the emergency room and has been unable to be extubated since. We are asked to see him for evaluation of t racheostomy placement. There is no family in the room. Patient has limited interaction. Past History Past Medical History: atrial fib, anemia, diabetes, dialysis, ESRD, hypertension Past Surgical History: appendectomy, Other (left upper extremity AV fistula later converted to AVG by Dr. Chaparro, Permacath placement, Tunneled PICC line) Social history: no significant social history, other (Personal skilled nursing patient) Medications and Allergies Allergies Allergy/AdvReac Type Severity Reaction Status Date / Time haloperidol [From Haldol] AdvReac Unknown Verified 03/13/18 12:10 haloperidol lactate AdvReac Unknown Verified 03/13/18 12:10 [From Haldol] Home Medications Medication Instructions Recorded Confirmed Last Taken Type risperiDONE [RisperDAL] 1 mg PO QAM 03/13/18 02/21/19 Unknown History Sertraline [Zoloft] 100 mg PO QDAY 08/26/18 02/21/19 Unknown History Polyethylene Glycol 3350 [Miralax 17 gm PO QDAY #30 packet 11/05/18 02/21/19 Unknown Rx 3350] Aspirin EC 81 mg PO DAILY #30 11/19/18 02/21/19 Unknown Rx Docusate Sodium [Colace CAP] 100 mg PO BID #60 11/19/18 02/21/19 Unknown Rx Folic Acid [Folvite] 1 mg PO DAILY #30 tab 11/19/18 02/21/19 Unknown Rx Famotidine [Pepcid] 20 mg PO DAILY tablet 12/08/18 02/21/19 Unknown Rx Gabapentin [Neurontin] 100 mg PO QHS capsule 12/08/18 02/21/19 Unknown Rx Metoprolol [Lopressor TAB] 50 mg PO BID 30 Days tablet 12/08/18 02/21/19 U nknown Rx Sevelamer Carbonate [Renvela] 800 mg PO TIDWM tablet 12/08/18 02/21/19 Unknown Rx hydrALAZINE [Apresoline TAB] 100 mg PO Q8HR #120 tablet 12/08/18 02/21/19 Unknown Rx Acetaminophen [Acetaminophen TAB] 650 mg PO Q12H PRN 12/15/18 02/21/19 Unknown History Glucagon,Human Recombinant 1 mg IJ Q15MIN PRN 12/15/18 02/21/19 Unknown History [Glucagon Emergency Kit] Insulin Aspart [NovoLOG 100 See Protocol SQ QWEEK 12/15/18 02/21/19 Unknown History UNITS/ML VIAL] Active Meds: Active Medications Acetaminophen (Tylenol) 650 mg PO Q4H PRN PRN Reason: Pain MILD(1-3)/Fever >100.5/HILL Albuterol/Ipratropium (Duoneb *Not For Prn Use*) 1 ampul IH TIDRT [facility] Last Admin: 03/01/19 08:55 Dose: 1 ampul Documented by: Lipase/Protease/Amylase ([place]rientos 10,500 Unit) 1 each FEEDTUBE PRN PRN PRN Reason: For Clogged Feeding Tube Dextrose (D50w (25gm) Syringe) 50 ml IV PRN PRN PRN Reason: Hypoglycemia Last Admin: 02/23/19 14:51 Dose: 50 ml Documented by: Enoxaparin Sodium (Lovenox) 30 mg SUB-Q QDAY [facility] Last Admin: 03/01/19 10:31 Dose: 30 mg Documented by: Famotidine (Pepcid) 20 mg PO DAILY [facility] Last Admin: 03/01/19 10:31 Dose: 20 mg Documented by: Hydrophilic Ointment (Vaseline Lip Therapy) 1 applic TP Q2HR PRN PRN Reason: Dry Lips Sodium Chloride (Nacl 0.9%) 100 mls @ 999 mls/hr IV UMA PRN PRN Reason: Hypotension Insulin Human Regular (Humulin R) 0 units SUB-Q Q6HR [facility]; Protocol Last Admin: 03/01/19 06:10 Dose: Not Given Documented by: Metoprolol Tartrate (Lopressor) 5 mg IV Q6HR [facility] Last Admin: 03/01/19 06:36 Dose: 5 mg Documented by: Metoprolol Tartrate (Lopressor) 2.5 mg IV Q4HR PRN PRN Reason: Tachycardia Last Admin: 03/01/19 10:32 Dose: 2.5 mg Documented by: Multi-Ingred Cream/Lotion/Oil/Oint (Artificial Tears Ophth Oint) 1 applic OU Q4HR PRN PRN Reason: Dry Eye(s) Ondansetron HCl (Zofran) 4 mg IV Q8H PRN PRN Reason: Nausea And Vomiting Risperidone (Risperdal) 1 mg PO DAILY [facility] Last Admin: 03/01/19 10:31 Dose: 1 mg Documented by: Sertraline HCl (Zoloft) 100 mg PO DAILY [facility] Last Admin: 03/01/19 10:31 Dose: 100 mg Documented by: Simple Syrup (Simple Syrup) 15 ml FEEDTUBE PRN PRN PRN Reason: Hypoglycemia Simple Syrup (Simple Syrup) 30 ml FEEDTUBE PRN PRN PRN Reason: Hypoglycemia Sodium Bicarbonate (Sodium Bicarbonate) 325 mg FEEDTUBE PRN PRN PRN Reason: For Clogged Feeding Tube Sodium Chloride (Sodium Chloride Flush Syringe 10 Ml) 10 ml IV BID [facility] Last Admin: 03/01/19 10:32 Dose: 10 ml Documented by: Sodium Chloride (Sodium Chloride Flush Syringe 10 Ml) 10 ml IV PRN PRN PRN Reason: LINE FLUSH Last Admin: 02/24/19 22:00 Dose: 10 ml Documented by: Review of Systems ROS unobtainable: due to endotracheal tube, due to mental status Exam Vital Signs Temp Pulse Resp BP Pulse Ox 97.2 F L 107 H 10 L 65/43 100 02/21/19 18:16 02/21/19 18:16 02/21/19 18:16 02/21/19 18:16 02/21/19 18:16 - General physical appearance Positive: no distress, no pain - ENT Positive: other (ETT in place) - Neck Positive: no masses, trachea midline, no lymphadectomy, no venous distension, other (no pulsations. no midline incisions. small, healed incision seen on the right side. ). Negative: deviated trachea - Respiratory Positive: normal expansion, normal respiratory effort, other (coarse bilateral breath sounds. ) - Cardiovascular Rhythm: other (tachycardia) - Abdomen Abdomen: Present: soft, other (PEG in place. ostomy functioning.). Absent: distended - Neurologic Neurologic: other (minimally responsive. opens left eye to his name. ) Results - Labs 02/26/19 03:45 02/26/19 03:45 Abnormal lab results 02/28/19 02/28/19 02/28/19 Range/Units 11:59 17:52 23:13 PT (12.2-14.9) Sec. INR (0.87-1.13) POC Glucose 128 H 142 H 112 H (70-105) 03/01/19 03/01/19 Range/Units 05:40 09:39 PT 16.3 H (12.2-14.9) Sec. INR 1.35 H (0.87-1.13) POC Glucose 111 H (70-105) - Imaging Chest x-ray: report reviewed, image reviewed Assessment and Plan - Patient Problems (1) Respiratory failure Current Visit: Yes Status: Acute Qualifiers: Chronicity: unspecified Respiratory failure complication: unspecified whether with hypoxia or hypercapnia Qualified Code(s): J96.90 - Respiratory failure, unspecified, unspecified whether with hypoxia or hypercapnia Plan to address problem: Pt stable. Pt has a very poor prognosis, but is a candidate for trach placement. Will reach our to family for consent and work on scheduling for bedside trach. PEG is already in place. Please call with questions. Time=30min
[2019-03-01 14:19] LABS: Calcium 9.7 mg/dL (8.4-10.2)
--- NOTE | 2019-03-01 21:53 | Progress Note ---
Subjective Principal diagnosis: respiratory failure Interval history: Patient was seen today for follow-up on multiple renal related issues patient was evaluated today at around 11:00 in the morning Is currently pending tracheotomy placement Current access is graft which is being used pending permacath removal patient is currently in maintenance dialysis Saturday AV graft is being used now Vitals intake output medications were reviewed Past medical history: Reviewed Family, social history: Reviewed Allergies: Reviewed Physical examination General: No acute distress Vitals: Reviewed HEENT: Oral mucosa moist no icterus Neck: Supple no thyromegaly nodular mass or JVD Chest: Clear to auscultation anteriorly Heart: Regular rate and rhythm S1-S2 heard no S3-S4 Abdomen: Soft nontender no suprapubic masses no organomegaly Extremity: Dry skin less than 1+ edema Psych: No evidence of any agitation and aggression noted Derm: No petechial rash Assessment and plan: End stage renal disease: Patient will continue with hemodialysis on, Saturday and Saturday schedule Currently graft is being used , also has had central venous catheter which can be removed if the graft continues to work well Status post vascular surgery evaluation currently being followed As of March 01 INR 1.35 potassium 4.7 BUN 33 creatinine 2.8 calcium is 9.7, PTH was 178 on December 2018 Respiratory failure Was intubated during this admission Anemia and end-stage renal disease: To monitor , will give weekly erythropoietin 40,000 Secondary hyperparathyroidism: Periodically check vitamin D and phosphorus level along with PTH Respiratory failure, was intubated upon arrival hypertension and volume: Stable, judicious ultrafiltration by dialysis nurse Prognosis: Very poor, mortality risk is very high We'll continue to follow and make recommendation from renal standpoint Objective - Vital Signs Vital signs: Vital Signs - 12hr 03/01/19 03/01/19 03/01/19 10:00 10:32 11:00 Temperature Pulse Rate 142 H 149 H 126 H Pulse Rate [ Anterior Bilateral Throughout] Pulse Rate [ From Monitor] Respiratory 30 H 32 H Rate Respiratory Rate [Anterior Bilateral Throughout] Blood Pressure 158/77 144/94 O2 Sat by Pulse 97 98 Oximetry 03/01/19 03/01/19 03/01/19 12:00 12:14 12:50 Temperature 98.8 F Pulse Rate 134 H 132 H 132 H Pulse Rate [ Anterior Bilateral Throughout] Pulse Rate [ 90 From Monitor] Respiratory 29 H 31 H Rate Respiratory Rate [Anterior Bilateral Throughout] Blood Pressure 137/75 137/75 137/75 O2 Sat by Pulse 99 99 Oximetry 03/01/19 03/01/19 03/01/19 13:00 13:15 14:00 Temperature Pulse Rate 111 H 111 H Pulse Rate [ 112 H Anterior Bilateral Throughout] Pulse Rate [ From Monitor] Respiratory 28 H 23 Rate Respiratory 20 Rate [Anterior Bilateral Throughout] Blood Pressure 118/71 135/79 O2 Sat by Pulse 100 100 Oximetry 03/01/19 03/01/19 03/01/19 15:00 15:54 15:56 Temperature 98.1 F Pulse Rate 83 82 Pulse Rate [ Anterior Bilateral Throughout] Pulse Rate [ From Monitor] Respiratory 30 H Rate Respiratory Rate [Anterior Bilateral Throughout] Blood Pressure 130/73 O2 Sat by Pulse 100 Oximetry 03/01/19 03/01/19 03/01/19 16:00 16:50 17:00 Temperature Pulse Rate 83 83 83 Pulse Rate [ Anterior Bilateral Throughout] Pulse Rate [ 83 From Monitor] Respiratory 20 30 H 27 H Rate Respiratory Rate [Anterior Bilateral Throughout] Blood Pressure 138/73 138/73 140/71 O2 Sat by Pulse 100 100 100 Oximetry 03/01/19 03/01/19 03/01/19 18:00 18:02 19:00 Temperature Pulse Rate 94 H 110 H 85 Pulse Rate [ Anterior Bilateral Throughout] Pulse Rate [ From Monitor] Respiratory 30 H 15 Rate Respiratory Rate [Anterior Bilateral Throughout] Blood Pressure 158/95 158/95 142/82 O2 Sat by Pulse 100 100 Oximetry 03/01/19 03/01/19 03/01/19 20:00 20:02 20:11 Temperature 98.9 F Pulse Rate 108 H 109 H Pulse Rate [ 88 Anterior Bilateral Throughout] Pulse Rate [ 103 H From Monitor] Respiratory 28 H Rate Respiratory 20 Rate [Anterior Bilateral Throughout] Blood Pressure 144/84 144/84 O2 Sat by Pulse 100 100 Oximetry 03/01/19 21:00 Temperature Pulse Rate 110 H Pulse Rate [ Anterior Bilateral Throughout] Pulse Rate [ From Monitor] Respiratory Rate Respiratory Rate [Anterior Bilateral Throughout] Blood Pressure 134/77 O2 Sat by Pulse 99 Oximetry - Lab 02/26/19 03:45 03/01/19 13:54 Most recent lab results Calcium 9.7 mg/dL (8.4-10.2) 03/01/19 13:54 Magnesium 2.20 mg/dL (1.7-2.3) 02/21/19 18:30 Medications & Allergies - Medications Allergies/Adverse Reactions: Allergies haloperidol [From Haldol] Adverse Reaction (Verified 03/13/18 12:10) Unknown haloperidol lactate [From Haldol] Adverse Reaction (Verified 03/13/18 12:10) Unknown Home Medications: Home Medications Medication Instructions Recorded Confirmed Last Taken Type risperiDONE [RisperDAL] 1 mg PO QAM 03/13/18 02/21/19 Unknown History Sertraline [Zoloft] 100 mg PO QDAY 08/26/18 02/21/19 Unknown History Polyethylene Glycol 3350 [Miralax 17 gm PO QDAY #30 packet 11/05/18 02/21/19 Unknown Rx 3350] Aspirin EC 81 mg PO DAILY #30 11/19/18 02/21/19 Unknown Rx Docusate Sodium [Colace CAP] 100 mg PO BID #60 11/19/18 02/21/19 Unknown Rx Folic Acid [Folvite] 1 mg PO DAILY #30 tab 11/19/18 02/21/19 Unknown Rx Famotidine [Pepcid] 20 mg PO DAILY tablet 12/08/18 02/21/19 Unknown Rx Gabapentin [Neurontin] 100 mg PO QHS capsule 12/08/18 02/21/19 Unknown Rx Metoprolol [Lopressor TAB] 50 mg PO BID 30 Days tablet 12/08/18 02/21/19 Unknown Rx Sevelamer Carbonate [Renvela] 800 mg PO TIDWM tablet 12/08/18 02/21/19 Unknown Rx hydrALAZINE [Apresoline TAB] 100 mg PO Q8HR #120 tablet 12/08/18 02/21/19 Unknown Rx Acetaminophen [Acetaminophen TAB] 650 mg PO Q12H PRN 12/15/18 02/21/19 Unknown History Glucagon,Human Recombinant 1 mg IJ Q15MIN PRN 12/15/18 02/21/19 Unknown History [Glucagon Emergency Kit] Insulin Aspart [NovoLOG 100 See Protocol SQ QWEEK 12/15/18 02/21/19 Unknown History UNITS/ML VIAL] Active Medications: Generic Name Dose Route Start Last Admin Trade Name Freq PRN Reason Stop Dose Admin Acetaminophen 650 mg 02/21/19 22:19 Tylenol PO Q4H PRN Pain MILD(1-3)/Fever >100.5/HILL Albuterol/Ipratropium 1 ampul 02/24/19 20:00 03/01/19 20:02 Duoneb *Not For Prn Use* IH 1 ampul TIDRT [facility]ANCHEZ Administration Lipase/Protease/Amylase 1 each 02/23/19 15:09 Pancrejewel Barrientos 10,500 Unit FEEDTUBE PRN PRN For Clogged Feeding Tube Dextrose 50 ml 02/21/19 22:22 02/23/19 14:51 D50w (25gm) Syringe IV 50 ml PRN PRN Administration Hypoglycemia Enoxaparin Sodium 30 mg 02/23/19 10:00 03/01/19 10:31 Lovenox SUB-Q 30 mg QDAY [facility] Administration Famotidine 20 mg 02/23/19 10:00 03/01/19 10:31 Pepcid PO 20 mg DAILY [facility] Administration Hydrophilic Ointment 1 applic 02/21/19 18:24 Vaseline Lip Therapy TP Q2HR PRN Dry Lips Sodium Chloride 100 mls @ 999 mls/hr 02/26/19 09:00 Nacl 0.9% IV UMA PRN Hypotension Insulin Human Regular 0 units 02/26/19 12:00 03/01/19 18:02 Humulin R SUB-Q Not Given Q6HR [facility] Protocol Metoprolol Tartrate 5 mg 02/28/19 18:00 03/01/19 18:02 Lopressor IV 5 mg Q6HR [facility] Administration Metoprolol Tartrate 2.5 mg 02/28/19 12:06 03/01/19 10:32 Lopressor IV 2.5 mg Q4HR PRN Administration Tachycardia Multi-Ingred Cream/Lotion/Oil/Oint 1 applic 02/21/19 18:24 Artificial Tears Ophth Oint OU Q4HR PRN Dry Eye(s) Ondansetron HCl 4 mg 02/21/19 22:19 Zofran IV Q8H PRN Nausea And Vomiting Risperidone 1 mg 02/25/19 13:00 03/01/19 10:31 Risperdal PO 1 mg DAILY [facility] Administration Sertraline HCl 100 mg 02/25/19 13:00 03/01/19 10:31 Zoloft PO 100 mg DAILY [facility] Administration Simple Syrup 15 ml 02/23/19 15:09 Simple Syrup FEEDTUBE PRN PRN Hypoglycemia Simple Syrup 30 ml 02/23/19 15:09 Simple Syrup FEEDTUBE PRN PRN Hypoglycemia Sodium Bicarbonate 325 mg 02/23/19 15:09 Sodium Bicarbonate FEEDTUBE PRN PRN For Clogged Feeding Tube Sodium Chloride 10 ml 02/22/19 10:00 03/01/19 21:50 Sodium Chloride Flush Syringe 10 Ml IV 10 ml BID [facility] Administration Sodium Chloride 10 ml 02/21/19 22:19 02/24/19 22:00 Sodium Chloride Flush Syringe 10 Ml IV 10 ml PRN PRN Administration LINE FLUSH
[2019-03-02] MEDS: METOPROLOL TARTRATE 5 MG/5 ML INJ IV SCH ×2 (00:55→06:50)
[2019-03-02] MEDS: INSULIN REGULAR, HUMAN 100 UNITS/1 ML SUB-Q SCH ×4 (00:56→18:25)
[2019-03-02 05:40] LABS: Basophils % (Auto) 0.6 % (0.0-1.8); Eosinophils # (Auto) 0.5 K/mm3 (0.0-0.4); Eosinophils % (Auto) 7.6 % (0.0-4.3); Hemoglobin 7.4 gm/dl (11.8-15.2); Lymphocytes % (Auto) 14.2 % (13.4-35.0); Mean Corpuscular HGB Conc 32 % (32-34); Mean Corpuscular Volume 84 fl (84-94); Monocytes # (Auto) 0.6 K/mm3 (0.0-0.8); Monocytes % (Auto) 7.9 % (0.0-7.3); Platelet Count 207 K/mm3 (140-440); Red Blood Count 2.73 M/mm3 (3.65-5.03); Red Cell Distribution Width 19.9 % (13.2-15.2)
[2019-03-02 06:00] LABS: Calcium 9.8 mg/dL (8.4-10.2)
[2019-03-02] MEDS: IPRATROPIUM/ALBUTEROL SULFATE 3 ML AMPUL.NEB IH SCH ×3 (08:28→19:03)
[2019-03-02] MEDS: ENOXAPARIN 30 MG/0.3 ML INJ SUB-Q SCH (09:54)
[2019-03-02] MEDS: SERTRALINE 100 MG TAB PO SCH (09:54)
[2019-03-02] MEDS: risperiDONE 1 MG TAB PO SCH (09:55)
[2019-03-02] MEDS: FAMOTIDINE 20 MG TAB PO SCH (09:55)
--- NOTE | 2019-03-02 10:47 | XRay Report ---
CHEST - 1 VIEW INDICATION: Hypoxemia. Elevated Peak Inspiratry Pressure COMPARISON: 02/28/2019 FINDINGS: Support devices: Stable support device positioning. Heart: Stable cardiomediastinal silhouette. Lungs/pleura: Stable mild pulmonary venous congestion and trace right pleural effusion. Additional findings: None. IMPRESSION: Unchanged exam. Signer Name: Sameer Lemons Jr, MD Signed: 03/02/2019 10:43 AM Workstation Name: [id number]
--- NOTE | 2019-03-02 11:17 | Progress Note ---
Assessment and Plan 63 y/o male with multiple medical issues admitted with altered mental status, acute respiratory failure requiring mechanical ventilation 1. Continue vent support 2. HD per renal 3. Agree with IMS, given multiple admissions and several events requiring intubation, trach very reasonable. Surgery has already evaluated. 4. CV-restart oral TID BB and continue PRN IV lopressor. 5. Continue to monitor in ICU. CCT 31 minutes. Subjective Date of service: 03/02/19 Principal diagnosis: respiratory failure Interval history: Appreciate Surgery eval. Mistake made on my part in order asking for peg as patient already has a peg. This am had high PIP. decreased rate and popped patient off the ventilator for a prolonged exhale. PIP in the mid 30's now. CXR is stable. No huge mucous plugging. Patient not biting on tube, no Pneumothorax. No family present. patient remains awake and alert. Follows commands. Objective Vital Signs - 12hr 03/02/19 03/02/19 03/02/19 00:00 00:08 00:55 Temperature 99.1 F Pulse Rate 101 H 88 109 H Pulse Rate [ Anterior Bilateral Throughout] Respiratory 20 Rate Respiratory Rate [Anterior Bilateral Throughout] Blood Pressure 126/74 126/74 119/72 O2 Sat by Pulse 100 100 Oximetry 03/02/19 03/02/19 03/02/19 01:00 02:00 03:00 Temperature Pulse Rate 81 92 H 103 H Pulse Rate [ Anterior Bilateral Throughout] Respiratory Rate Respiratory Rate [Anterior Bilateral Throughout] Blood Pressure 126/69 123/64 114/64 O2 Sat by Pulse 100 100 100 Oximetry 03/02/19 03/02/19 03/02/19 04:00 04:30 05:00 Temperature 98.9 F Pulse Rate 86 81 82 Pulse Rate [ Anterior Bilateral Throughout] Respiratory 20 Rate Respiratory Rate [Anterior Bilateral Throughout] Blood Pressure 113/62 111/63 117/72 O2 Sat by Pulse 100 100 100 Oximetry 03/02/19 03/02/19 03/02/19 06:00 06:50 07:00 Temperature Pulse Rate 81 82 81 Pulse Rate [ Anterior Bilateral Throughout] Respiratory Rate Respiratory Rate [Anterior Bilateral Throughout] Blood Pressure 135/78 133/71 130/70 O2 Sat by Pulse 100 98 Oximetry 03/02/19 03/02/19 03/02/19 08:00 08:15 08:20 Temperature 98.1 F Pulse Rate 80 80 Pulse Rate [ Anterior Bilateral Throughout] Respiratory Rate Respiratory Rate [Anterior Bilateral Throughout] Blood Pressure 139/78 139/78 O2 Sat by Pulse 100 100 100 Oximetry 03/02/19 03/02/19 08:28 09:00 Temperature Pulse Rate 81 Pulse Rate [ 79 Anterior Bilateral Throughout] Respiratory Rate Respiratory 16 Rate [Anterior Bilateral Throughout] Blood Pressure 148/80 O2 Sat by Pulse 100 Oximetry Constitutional: alert, other (critically ill on vent) Eyes: non-icteric Effort: normal Ascultation: Bilateral: diminished breath sounds, other (coarse BS bilaterally) Percussion: Bilateral: not dull Cardiovascular: regular rate and rhythm (no mrg) Gastrointestinal: normoactive bowel sounds, soft, non-tender, non-distended Extremities: no edema, pink and warm Neurologic: other (somnolent, minimally arousable, squeezes with R and L hand and wiggles toes on command) Psychiatric: other (unable to assess) CBC and BMP: 03/02/19 05:15 03/02/19 05:15 ABG, PT/INR, D-dimer: ABG POC ABG pH 7.483 (7.35-7.45) H 02/27/19 04:35 POC ABG pCO2 37.5 (35-45) 02/27/19 04:35 POC ABG pO2 61 (80-105) L 02/27/19 04:35 POC ABG HCO3 28.1 (22-26 mml/L) 02/27/19 04:35 POC ABG Total CO2 29 (23-27mmol/L) 02/27/19 04:35 POC ABG O2 Sat 93 02/27/19 04:35 PT/INR, D-dimer PT 16.3 Sec. (12.2-14.9) H 03/01/19 09:39 INR 1.35 (0.87-1.13) H 03/01/19 09:39 2987.82 ng/mlDDU (0-234) H 02/22/19 05:54 Abnormal lab findings: Abnormal Labs 02/21/19 02/21/19 02/21/19 18:30 18:30 18:30 RBC 3.26 L Hgb 8.8 L Hct 29.0 L MCH 27 L MCHC 30 L RDW 19.1 H Lymph % (Auto) 6.1 L [place] % (Auto) Eos % (Auto) Lymph # 0.4 L Eos # Seg Neutrophils % 86.2 H PT INR D-Dimer POC ABG pH POC ABG pCO2 POC ABG pO2 Sodium 133 L Potassium 3.3 L Chloride 93.1 L Carbon Dioxide 33 H BUN Creatinine Glucose 161 H POC Glucose Phosphorus Alkaline Phosphatase 136 H Total Creatine Kinase 37 L CK-MB (CK-2) Rel Index Troponin T 0.192 H* Albumin 2.4 L LDL Cholesterol Direct 36 L PTH Intact Salicylates Acetaminophen 02/21/19 02/21/19 02/21/19 18:42 20:04 20:04 RBC Hgb Hct MCH MCHC RDW Lymph % (Auto) [place] % (Auto) Eos % (Auto) Lymph # Eos # Seg Neutrophils % PT INR D-Dimer POC ABG pH POC ABG pCO2 56.7 H POC ABG pO2 291 H Sodium Potassium Chloride Carbon Dioxide BUN Creatinine Glucose POC Glucose Phosphorus Alkaline Phosphatase Total Creatine Kinase CK-MB (CK-2) Rel Index Troponin T Albumin LDL Cholesterol Direct PTH Intact Salicylates < 0.3 L Acetaminophen < 5.0 L 02/21/19 02/22/19 02/22/19 22:35 03:42 03:42 RBC 3.20 L Hgb 8.8 L Hct 27.6 L MCH MCHC RDW 18.9 H Lymph % (Auto) 7.4 L [place] % (Auto) Eos % (Auto) Lymph # 0.7 L Eos # Seg Neutrophils % 84.7 H PT INR D-Dimer POC ABG pH POC ABG pCO2 POC ABG pO2 Sodium 134 L Potassium 2.6 L* D Chloride Carbon Dioxide BUN Creatinine Glucose POC Glucose Phosphorus Alkaline Phosphatase Total Creatine Kinase CK-MB (CK-2) Rel Index 5.2 H Troponin T 0.202 H* Albumin LDL Cholesterol Direct PTH Intact Salicylates Acetaminophen 02/22/19 02/22/19 02/22/19 03:42 05:54 09:04 RBC Hgb Hct MCH MCHC RDW Lymph % (Auto) [place] % (Auto) Eos % (Auto) Lymph # Eos # Seg Neutrophils % PT INR D-Dimer 2987.82 H POC ABG pH 7.451 H POC ABG pCO2 POC ABG pO2 Sodium Potassium Chloride Carbon Dioxide BUN Creatinine Glucose POC Glucose Phosphorus Alkaline Phosphatase Total Creatine Kinase CK-MB (CK-2) Rel Index 5.7 H Troponin T 0.193 H* Albumin LDL Cholesterol Direct PTH Intact Salicylates Acetaminophen 02/22/19 02/22/19 02/23/19 10:36 23:56 00:52 RBC Hgb Hct MCH MCHC RDW Lymph % (Auto) [place] % (Auto) Eos % (Auto) Lymph # Eos # Seg Neutrophils % PT INR D-Dimer POC ABG pH POC ABG pCO2 POC ABG pO2 Sodium Potassium 3.1 L Chloride Carbon Dioxide BUN Creatinine Glucose POC Glucose 58 L 111 H Phosphorus Alkaline Phosphatase Total Creatine Kinase CK-MB (CK-2) Rel Index Troponin T Albumin LDL Cholesterol Direct PTH Intact Salicylates Acetaminophen 02/23/19 02/23/19 02/23/19 05:00 06:35 14:26 RBC Hgb Hct MCH MCHC RDW Lymph % (Auto) [place] % (Auto) Eos % (Auto) Lymph # Eos # Seg Neutrophils % PT INR D-Dimer POC ABG pH POC ABG pCO2 POC ABG pO2 Sodium 135 L Potassium 3.1 L Chloride Carbon Dioxide BUN 21 H Creatinine 2.0 H Glucose 57 L POC Glucose 64 L 62 L Phosphorus Alkaline Phosphatase Total Creatine Kinase CK-MB (CK-2) Rel Index Troponin T Albumin LDL Cholesterol Direct PTH Intact Salicylates Acetaminophen 02/24/19 02/24/19 02/24/19 02:11 04:12 04:55 RBC 2.84 L Hgb 7.8 L Hct 24.5 L MCH MCHC RDW 19.5 H Lymph % (Auto) [place] % (Auto) Eos % (Auto) Lymph # Eos # Seg Neutrophils % PT INR D-Dimer POC ABG pH 7.511 H POC ABG pCO2 33.9 L POC ABG pO2 62 L Sodium Potassium Chloride Carbon Dioxide BUN Creatinine Glucose POC Glucose 69 L Phosphorus Alkaline Phosphatase Total Creatine Kinase CK-MB (CK-2) Rel Index Troponin T Albumin LDL Cholesterol Direct PTH Intact Salicylates Acetaminophen 02/24/19 02/24/19 02/25/19 04:55 05:41 04:45 RBC Hgb Hct MCH MCHC RDW Lymph % (Auto) [place] % (Auto) Eos % (Auto) Lymph # Eos # Seg Neutrophils % PT INR D-Dimer POC ABG pH 7.466 H POC ABG pCO2 POC ABG pO2 75 L Sodium Potassium Chloride Carbon Dioxide BUN Creatinine 1.8 H Glucose 73 L POC Glucose 127 H Phosphorus Alkaline Phosphatase Total Creatine Kinase CK-MB (CK-2) Rel Index Troponin T Albumin LDL Cholesterol Direct PTH Intact Salicylates Acetaminophen 02/25/19 02/25/19 02/26/19 16:34 21:33 03:45 RBC 2.96 L Hgb 8.0 L Hct 25.8 L MCH 27 L MCHC 31 L RDW 20.0 H Lymph % (Auto) [place] % (Auto) Eos % (Auto) Lymph # Eos # Seg Neutrophils % PT INR D-Dimer POC ABG pH POC ABG pCO2 POC ABG pO2 Sodium Potassium Chloride Carbon Dioxide BUN Creatinine Glucose POC Glucose 141 H 106 H Phosphorus Alkaline Phosphatase Total Creatine Kinase CK-MB (CK-2) Rel Index Troponin T Albumin LDL Cholesterol Direct PTH Intact Salicylates Acetaminophen 02/26/19 02/26/19 02/26/19 03:45 04:13 07:53 RBC Hgb Hct MCH MCHC RDW Lymph % (Auto) [place] % (Auto) Eos % (Auto) Lymph # Eos # Seg Neutrophils % PT INR D-Dimer POC ABG pH 7.470 H POC ABG pCO2 POC ABG pO2 Sodium Potassium Chloride Carbon Dioxide BUN Creatinine 1.8 H Glucose POC Glucose 110 H Phosphorus Alkaline Phosphatase Total Creatine Kinase CK-MB (CK-2) Rel Index Troponin T Albumin LDL Cholesterol Direct PTH Intact Salicylates Acetaminophen 02/26/19 02/26/19 02/27/19 11:56 17:43 00:12 RBC Hgb Hct MCH MCHC RDW Lymph % (Auto) [place] % (Auto) Eos % (Auto) Lymph # Eos # Seg Neutrophils % PT INR D-Dimer POC ABG pH POC ABG pCO2 POC ABG pO2 Sodium Potassium Chloride Carbon Dioxide BUN Creatinine Glucose POC Glucose 112 H 127 H 127 H Phosphorus Alkaline Phosphatase Total Creatine Kinase CK-MB (CK-2) Rel Index Troponin T Albumin LDL Cholesterol Direct PTH Intact Salicylates Acetaminophen 02/27/19 02/27/19 02/27/19 04:35 13:15 18:02 RBC Hgb Hct MCH MCHC RDW Lymph % (Auto) [place] % (Auto) Eos % (Auto) Lymph # Eos # Seg Neutrophils % PT INR D-Dimer POC ABG pH 7.483 H POC ABG pCO2 POC ABG pO2 61 L Sodium Potassium Chloride Carbon Dioxide BUN Creatinine Glucose POC Glucose 143 H 106 H Phosphorus Alkaline Phosphatase Total Creatine Kinase CK-MB (CK-2) Rel Index Troponin T Albumin LDL Cholesterol Direct PTH Intact Salicylates Acetaminophen 02/28/19 02/28/19 02/28/19 05:50 11:59 17:52 RBC Hgb Hct MCH MCHC RDW Lymph % (Auto) [place] % (Auto) Eos % (Auto) Lymph # Eos # Seg Neutrophils % PT INR D-Dimer POC ABG pH POC ABG pCO2 POC ABG pO2 Sodium Potassium Chloride Carbon Dioxide BUN Creatinine Glucose POC Glucose 134 H 128 H 142 H Phosphorus Alkaline Phosphatase Total Creatine Kinase CK-MB (CK-2) Rel Index Troponin T Albumin LDL Cholesterol Direct PTH Intact Salicylates Acetaminophen 02/28/19 03/01/19 03/01/19 23:13 05:40 09:39 RBC Hgb Hct MCH MCHC RDW Lymph % (Auto) [place] % (Auto) Eos % (Auto) Lymph # Eos # Seg Neutrophils % PT 16.3 H INR 1.35 H D-Dimer POC ABG pH POC ABG pCO2 POC ABG pO2 Sodium Potassium Chloride Carbon Dioxide BUN Creatinine Glucose POC Glucose 112 H 111 H Phosphorus Alkaline Phosphatase Total Creatine Kinase CK-MB (CK-2) Rel Index Troponin T Albumin LDL Cholesterol Direct PTH Intact Salicylates Acetaminophen 03/01/19 03/01/19 03/01/19 11:56 13:54 17:59 RBC Hgb Hct MCH MCHC RDW Lymph % (Auto) [place] % (Auto) Eos % (Auto) Lymph # Eos # Seg Neutrophils % PT INR D-Dimer POC ABG pH POC ABG pCO2 POC ABG pO2 Sodium Potassium Chloride Carbon Dioxide BUN 33 H Creatinine 2.8 H D Glucose 176 H POC Glucose 199 H 147 H Phosphorus Alkaline Phosphatase Total Creatine Kinase CK-MB (CK-2) Rel Index Troponin T Albumin LDL Cholesterol Direct PTH Intact Salicylates Acetaminophen 03/02/19 03/02/19 03/02/19 05:15 05:15 05:15 RBC 2.73 L Hgb 7.4 L Hct 23.0 L MCH 27 L MCHC RDW 19.9 H Lymph % (Auto) [place] % (Auto) 7.9 H Eos % (Auto) 7.6 H Lymph # 1.0 L Eos # 0.5 H Seg Neutrophils % PT INR D-Dimer POC ABG pH POC ABG pCO2 POC ABG pO2 Sodium Potassium Chloride Carbon Dioxide BUN 43 H Creatinine 3.2 H Glucose POC Glucose Phosphorus 2.30 L Alkaline Phosphatase Total Creatine Kinase CK-MB (CK-2) Rel Index Troponin T Albumin LDL Cholesterol Direct PTH Intact 267.6 H Salicylates Acetaminophen
--- NOTE | 2019-03-02 12:44 | Progress Note ---
Subjective Principal diagnosis: respiratory failure Interval history: Patient was seen today for follow-up on multiple renal related issues patient is currently in maintenance dialysis Saturday AV graft is being used now orally intubated pending tracheotomy Vitals intake output medications were reviewed Past medical history: Reviewed Family, social history: Reviewed Allergies: Reviewed Physical examination General: No acute distress Vitals: Reviewed HEENT: Oral mucosa moist no icterus orally intubated Neck: Supple no thyromegaly nodular mass or JVD Chest: Clear to auscultation anteriorly Heart: Regular rate and rhythm S1-S2 heard no S3-S4 Abdomen: Soft nontender no suprapubic masses no organomegaly Extremity: Dry skin less than 1+ edema Psych: No evidence of any agitation and aggression noted Derm: No petechial rash Assessment and plan: End stage renal disease: Patient will continue with hemodialysis on, Saturday and Saturday schedule discussed with dialysis nurse to change his potassium to 3.0 Current dialysis access is a graft which is being used now Permacath can be discontinued as soon as possible vascular surgery is already following Respiratory failure Was intubated during this admission, Currently pending tracheotomy Anemia and end-stage renal disease: To monitor , will give weekly erythropoietin 40,000 Secondary hyperparathyroidism: Periodically check vitamin D and phosphorus level along with PTH Respiratory failure, was intubated upon arrival hypertension and volume: Stable, judicious ultrafiltration by dialysis nurse Prognosis: Very poor, mortality risk is very high We'll continue to follow and make recommendation from renal standpoint Objective - Vital Signs Vital signs: Vital Signs - 12hr 03/02/19 03/02/19 03/02/19 00:55 01:00 02:00 Temperature Pulse Rate 109 H 81 92 H Pulse Rate [ Anterior Bilateral Throughout] Respiratory Rate Respiratory Rate [Anterior Bilateral Throughout] Blood Pressure 119/72 126/69 123/64 O2 Sat by Pulse 100 100 Oximetry 03/02/19 03/02/19 03/02/19 03:00 04:00 04:30 Temperature 98.9 F Pulse Rate 103 H 86 81 Pulse Rate [ Anterior Bilateral Throughout] Respiratory 20 Rate Respiratory Rate [Anterior Bilateral Throughout] Blood Pressure 114/64 113/62 111/63 O2 Sat by Pulse 100 100 100 Oximetry 03/02/19 03/02/19 03/02/19 05:00 06:00 06:50 Temperature Pulse Rate 82 81 82 Pulse Rate [ Anterior Bilateral Throughout] Respiratory Rate Respiratory Rate [Anterior Bilateral Throughout] Blood Pressure 117/72 135/78 133/71 O2 Sat by Pulse 100 100 Oximetry 03/02/19 03/02/19 03/02/19 07:00 08:00 08:15 Temperature 98.1 F Pulse Rate 81 80 Pulse Rate [ Anterior Bilateral Throughout] Respiratory Rate Respiratory Rate [Anterior Bilateral Throughout] Blood Pressure 130/70 139/78 O2 Sat by Pulse 98 100 100 Oximetry 03/02/19 03/02/19 03/02/19 08:20 08:28 09:00 Temperature Pulse Rate 80 81 Pulse Rate [ 79 Anterior Bilateral Throughout] Respiratory Rate Respiratory 16 Rate [Anterior Bilateral Throughout] Blood Pressure 139/78 148/80 O2 Sat by Pulse 100 100 Oximetry 03/02/19 11:12 Temperature Pulse Rate 81 Pulse Rate [ Anterior Bilateral Throughout] Respiratory Rate Respiratory Rate [Anterior Bilateral Throughout] Blood Pressure 153/81 O2 Sat by Pulse 100 Oximetry - Lab 03/02/19 05:15 03/02/19 05:15 Most recent lab results Calcium 9.8 mg/dL (8.4-10.2) 03/02/19 05:15 Phosphorus 2.30 mg/dL (2.5-4.5) L 03/02/19 05:15 Magnesium 2.20 mg/dL (1.7-2.3) 03/02/19 05:15 Medications & Allergies - Medications Allergies/Adverse Reactions: Allergies haloperidol [From Haldol] Adverse Reaction (Verified 03/13/18 12:10) Unknown haloperidol lactate [From Haldol] Adverse Reaction (Verified 03/13/18 12:10) Unknown Home Medications: Home Medications Medication Instructions Recorded Confirmed Last Taken Type risperiDONE [RisperDAL] 1 mg PO QAM 03/13/18 02/21/19 Unknown History Sertraline [Zoloft] 100 mg PO QDAY 08/26/18 02/21/19 Unknown History Polyethylene Glycol 3350 [Miralax 17 gm PO QDAY #30 packet 11/05/18 02/21/19 Unknown Rx 3350] Aspirin EC [Halfprin EC] 81 mg PO DAILY #30 11/19/18 02/21/19 Unknown Rx Docusate Sodium [Colace CAP] 100 mg PO BID #60 11/19/18 02/21/19 Unknown Rx Folic Acid [Folvite] 1 mg PO DAILY #30 tab 11/19/18 02/21/19 Unknown Rx Famotidine [Pepcid] 20 mg PO DAILY tablet 12/08/18 02/21/19 Unknown Rx Gabapentin [Neurontin] 100 mg PO QHS capsule 12/08/18 02/21/19 Unknown Rx Metoprolol [Lopressor TAB] 50 mg PO BID 30 Days tablet 12/08/18 02/21/19 Unkno wn Rx Sevelamer Carbonate [Renvela] 800 mg PO TIDWM tablet 12/08/18 02/21/19 Unknown Rx hydrALAZINE [Apresoline TAB] 100 mg PO Q8HR #120 tablet 12/08/18 02/21/19 Unknown Rx Acetaminophen [Acetaminophen TAB] 650 mg PO Q12H PRN 12/15/18 02/21/19 Unknown History Glucagon,Human Recombinant 1 mg IJ Q15MIN PRN 12/15/18 02/21/19 Unknown History [Glucagon Emergency Kit] Insulin Aspart [NovoLOG 100 See Protocol SQ QWEEK 12/15/18 02/21/19 Unknown History UNITS/ML VIAL] Active Medications: Generic Name Dose Route Start Last Admin Trade Name Freq PRN Reason Stop Dose Admin Acetaminophen 650 mg 02/21/19 22:19 Tylenol PO Q4H PRN Pain MILD(1-3)/Fever >100.5/HILL Albuterol/Ipratropium 1 ampul 02/24/19 20:00 03/02/19 08:28 Duoneb *Not For Prn Use* IH 1 ampul TIDRT SANCHEZ Administration Lipase/Protease/Amylase 1 each 02/23/19 15:09 Mc Barrientos 10,500 Unit FEEDTUBE PRN PRN For Clogged Feeding Tube Dextrose 50 ml 02/21/19 22:22 02/23/19 14:51 D50w (25gm) Syringe IV 50 ml PRN PRN Administration Hypoglycemia Enoxaparin Sodium 30 mg 02/23/19 10:00 03/02/19 09:54 Lovenox SUB-Q 30 mg QDAY SANCHEZ Administration Famotidine 20 mg 02/23/19 10:00 03/02/19 09:55 Pepcid PO 20 mg DAILY SANCHEZ Administration Hydrophilic Ointment 1 applic 02/21/19 18:24 Vaseline Lip Therapy TP Q2HR PRN Dry Lips Sodium Chloride 100 mls @ 999 mls/hr 02/26/19 09:00 Nacl 0.9% IV UMA PRN Hypotension Insulin Human Regular 0 units 02/26/19 12:00 03/02/19 06:51 Humulin R SUB-Q Not Given Q6HR [facility] Protocol Metoprolol Tartrate 2.5 mg 02/28/19 12:06 03/01/19 10:32 Lopressor IV 2.5 mg Q4HR PRN Administration Tachycardia Metoprolol Tartrate 25 mg 03/02/19 14:00 Lopressor PO TID [facility] Multi-Ingred Cream/Lotion/Oil/Oint 1 applic 02/21/19 18:24 Artificial Tears Ophth Oint OU Q4HR PRN Dry Eye(s) Ondansetron HCl 4 mg 02/21/19 22:19 Zofran IV Q8H PRN Nausea And Vomiting Risperidone 1 mg 02/25/19 13:00 03/02/19 09:55 Risperdal PO 1 mg DAILY SANCHEZ Administration Sertraline HCl 100 mg 02/25/19 13:00 03/02/19 09:54 Zoloft PO 100 mg DAILY SANCHEZ Administration Simple Syrup 15 ml 02/23/19 15:09 Simple Syrup FEEDTUBE PRN PRN Hypoglycemia Simple Syrup 30 ml 02/23/19 15:09 Simple Syrup FEEDTUBE PRN PRN Hypoglycemia Sodium Bicarbonate 325 mg 02/23/19 15:09 Sodium Bicarbonate FEEDTUBE PRN PRN For Clogged Feeding Tube Sodium Chloride 10 ml 02/22/19 10:00 03/02/19 09:55 Sodium Chloride Flush Syringe 10 Ml IV 10 ml BID SANCHEZ Administration Sodium Chloride 10 ml 02/21/19 22:19 02/24/19 22:00 Sodium Chloride Flush Syringe 10 Ml IV 10 ml PRN PRN Administration LINE FLUSH
--- NOTE | 2019-03-02 13:04 | Progress Note ---
Assessment and Plan - Patient Problems (1) Respiratory failure Current Visit: Yes Status: Acute Qualifiers: Chronicity: unspecified Respiratory failure complication: unspecified whether with hypoxia or hypercapnia Qualified Code(s): J96.90 - Respiratory failure, unspecified, unspecified whether with hypoxia or hypercapnia Plan to address problem: Pt stable. Plan for trach tomorrow. Procedure, risks, benefits discussed with Jennifer LOPEZ). Consent obtained. Time=15min Subjective Date of service: 03/02/19 Patient Reports: Positive: other (no new issues.) Objective Vital Signs - 12hr 03/02/19 03/02/19 03/02/19 02:00 03:00 04:00 Temperature 98.9 F Pulse Rate 92 H 103 H 86 Pulse Rate [ Anterior Bilateral Throughout] Respiratory 20 Rate Respiratory Rate [Anterior Bilateral Throughout] Blood Pressure 123/64 114/64 113/62 O2 Sat by Pulse 100 100 100 Oximetry 03/02/19 03/02/19 03/02/19 04:30 05:00 06:00 Temperature Pulse Rate 81 82 81 Pulse Rate [ Anterior Bilateral Throughout] Respiratory Rate Respiratory Rate [Anterior Bilateral Throughout] Blood Pressure 111/63 117/72 135/78 O2 Sat by Pulse 100 100 100 Oximetry 03/02/19 03/02/19 03/02/19 06:50 07:00 08:00 Temperature 98.1 F Pulse Rate 82 81 80 Pulse Rate [ Anterior Bilateral Throughout] Respiratory Rate Respiratory Rate [Anterior Bilateral Throughout] Blood Pressure 133/71 130/70 139/78 O2 Sat by Pulse 98 100 Oximetry 03/02/19 03/02/19 03/02/19 08:15 08:20 08:28 Temperature Pulse Rate 80 Pulse Rate [ 79 Anterior Bilateral Throughout] Respiratory Rate Respiratory 16 Rate [Anterior Bilateral Throughout] Blood Pressure 139/78 O2 Sat by Pulse 100 100 Oximetry 03/02/19 03/02/19 09:00 11:12 Temperature Pulse Rate 81 81 Pulse Rate [ Anterior Bilateral Throughout] Respiratory Rate Respiratory Rate [Anterior Bilateral Throughout] Blood Pressure 148/80 153/81 O2 Sat by Pulse 100 100 Oximetry - General physical appearance no distress, no pain - ENT other (ETT in place) - Neck trachea midline, no venous distension - Respiratory normal expansion, normal respiratory effort, other (minimal vent settings) - Labs 03/02/19 05:15 03/02/19 05:15 Diabetes panel 08/11/19 08/12/19 Range/Units 13:54 05:15 Sodium 140 141 (137-145) mmol/L Potassium 4.7 D 5.0 (3.6-5.0) mmol/L Chloride 100.8 101.7 (98-107) mmol/L Carbon Dioxide 30 28 (22-30) mmol/L BUN 33 H 43 H (9-20) mg/dL Creatinine 2.8 H D 3.2 H (0.8-1.5) mg/dL Glucose 176 H 88 (75-100) mg/dL Calcium 9.7 9.8 (8.4-10.2) mg/dL Calcium panel 03/01/19 03/02/19 Range/Units 13:54 05:15 Calcium 9.7 9.8 (8.4-10.2) mg/dL Phosphorus 2.30 L (2.5-4.5) mg/dL Pituitary panel 03/01/19 03/02/19 Range/Units 13:54 05:15 Sodium 140 141 (137-145) mmol/L Potassium 4.7 D 5.0 (3.6-5.0) mmol/L Chloride 100.8 101.7 (98-107) mmol/L Carbon Dioxide 30 28 (22-30) mmol/L BUN 33 H 43 H (9-20) mg/dL Creatinine 2.8 H D 3.2 H (0.8-1.5) mg/dL Glucose 176 H 88 (75-100) mg/dL Calcium 9.7 9.8 (8.4-10.2) mg/dL Adrenal panel 03/01/19 03/02/19 Range/Units 13:54 05:15 Sodium 140 141 (137-145) mmol/L Potassium 4.7 D 5.0 (3.6-5.0) mmol/L Chloride 100.8 101.7 (98-107) mmol/L Carbon Dioxide 30 28 (22-30) mmol/L BUN 33 H 43 H (9-20) mg/dL Creatinine 2.8 H D 3.2 H (0.8-1.5) mg/dL Glucose 176 H 88 (75-100) mg/dL Calcium 9.7 9.8 (8.4-10.2) mg/dL
[2019-03-02] MEDS: METOPROLOL TARTRATE 25 MG TAB PO SCH ×2 (14:43→21:05)
--- NOTE | 2019-03-02 16:36 | Progress Note ---
Assessment and Plan Pt for HD this afternoon using AVG. Pt for Trach tomorrow by Gen Surgery. If continues to use AVG without issue, then PC removal prior to d/c. - Patient Problems (1) AV graft malfunction Current Visit: No Status: Acute (2) ESRD (end stage renal disease) on dialysis Current Visit: Yes Status: Chronic (3) Encephalopathy Current Visit: Yes Status: Acute (4) Respiratory failure Current Visit: Yes Status: Acute Qualifiers: Chronicity: unspecified Respiratory failure complication: unspecified whether with hypoxia or hypercapnia Qualified Code(s): J96.90 - Respiratory failure, unspecified, unspecified whether with hypoxia or hypercapnia Subjective Date of service: 03/02/19 Principal diagnosis: respiratory failure Interval history: Pt sedated on mechanical ventilation. Does not respond to verbal stimulus. Objective - Constitutional Vitals: Vital Signs - 12hr 03/02/19 03/02/19 03/02/19 05:00 06:00 06:50 Temperature Pulse Rate 82 81 82 Pulse Rate [ Anterior Bilateral Throughout] Respiratory Rate [Anterior Bilateral Throughout] Blood Pressure 117/72 135/78 133/71 O2 Sat by Pulse 100 100 Oximetry 03/02/19 03/02/19 03/02/19 07:00 08:00 08:15 Temperature 98.1 F Pulse Rate 81 92 H Pulse Rate [ Anterior Bilateral Throughout] Respiratory Rate [Anterior Bilateral Throughout] Blood Pressure 130/70 139/78 O2 Sat by Pulse 98 100 100 Oximetry 03/02/19 03/02/19 03/02/19 08:20 08:28 09:00 Temperature Pulse Rate 80 81 Pulse Rate [ 79 Anterior Bilateral Throughout] Respiratory 16 Rate [Anterior Bilateral Throughout] Blood Pressure 139/78 148/80 O2 Sat by Pulse 100 100 Oximetry 03/02/19 03/02/19 03/02/19 10:00 11:00 11:12 Temperature Pulse Rate 81 81 81 Pulse Rate [ Anterior Bilateral Throughout] Respiratory Rate [Anterior Bilateral Throughout] Blood Pressure 156/70 153/81 153/81 O2 Sat by Pulse 100 100 100 Oximetry 03/02/19 03/02/19 03/02/19 12:00 12:10 13:00 Temperature Pulse Rate 82 81 Pulse Rate [ Anterior Bilateral Throughout] Respiratory Rate [Anterior Bilateral Throughout] Blood Pressure 135/71 130/72 O2 Sat by Pulse 100 100 100 Oximetry 03/02/19 03/02/19 03/02/19 14:00 14:38 14:40 Temperature Pulse Rate 81 81 Pulse Rate [ 81 Anterior Bilateral Throughout] Respiratory 14 Rate [Anterior Bilateral Throughout] Blood Pressure 126/68 128/67 O2 Sat by Pulse 100 100 Oximetry 03/02/19 14:43 Temperature Pulse Rate 81 Pulse Rate [ Anterior Bilateral Throughout] Respiratory Rate [Anterior Bilateral Throughout] Blood Pressure 128/67 O2 Sat by Pulse Oximetry General appearance: Present: no acute distress - Respiratory Respiratory effort: other (on vent) Extremities: abnormal (LUE AVG patent) - Psychiatric Psychiatric: no intact judgment & insight, no cooperative - Labs CBC & Chem 7: 03/02/19 05:15 03/02/19 05:15 Labs: Abnormal lab results 03/01/19 03/02/19 03/02/19 Range/Units 17:59 05:15 05:15 RBC 2.73 L (3.65-5.03) M/mm3 Hgb 7.4 L (11.8-15.2) gm/dl Hct 23.0 L (35.5-45.6) % MCH 27 L (28-32) pg RDW 19.9 H (13.2-15.2) % Coal % (Auto) 7.9 H (0.0-7.3) % Eos % (Auto) 7.6 H (0.0-4.3) % Lymph # 1.0 L (1.2-5.4) K/mm3 Eos # 0.5 H (0.0-0.4) K/mm3 BUN 43 H (9-20) mg/dL Creatinine 3.2 H (0.8-1.5) mg/dL POC Glucose 147 H (70-105) Phosphorus 2.30 L (2.5-4.5) mg/dL PTH Intact (15-65) pg/mL 03/02/19 Range/Units 05:15 RBC (3.65-5.03) M/mm3 Hgb (11.8-15.2) gm/dl Hct (35.5-45.6) % MCH (28-32) pg RDW (13.2-15.2) % Coal % (Auto) (0.0-7.3) % Eos % (Auto) (0.0-4.3) % Lymph # (1.2-5.4) K/mm3 Eos # (0.0-0.4) K/mm3 BUN (9-20) mg/dL Creatinine (0.8-1.5) mg/dL POC Glucose (70-105) Phosphorus (2.5-4.5) mg/dL PTH Intact 267.6 H (15-65) pg/mL Medications & Allergies - Medications Allergies/Adverse Reactions: Allergies haloperidol [From Haldol] Adverse Reaction (Verified 03/13/18 12:10) Unknown haloperidol lactate [From Haldol] Adverse Reaction (Verified 03/13/18 12:10) Unknown Home Medications: Home Medications Medication Instructions Recorded Confirmed Last Taken Type risperiDONE [RisperDAL] 1 mg PO QAM 03/13/18 02/21/19 Unknown History Sertraline [Zoloft] 100 mg PO QDAY 08/26/18 02/21/19 Unknown History Polyethylene Glycol 3350 [Miralax 17 gm PO QDAY #30 packet 11/05/18 02/21/19 Unknown Rx 3350] Aspirin EC [Halfprin EC] 81 mg PO DAILY #30 11/19/18 02/21/19 Unknown Rx Docusate Sodium [Colace CAP] 100 mg PO BID #60 11/19/18 02/21/19 Unknown Rx Folic Acid [Folvite] 1 mg PO DAILY #30 tab 11/19/18 02/21/19 Unknown Rx Famotidine [Pepcid] 20 mg PO DAILY tablet 12/08/18 02/21/19 Unknown Rx Gabapentin [Neurontin] 100 mg PO QHS capsule 12/08/18 02/21/19 Unknown Rx Metoprolol [Lopressor TAB] 50 mg PO BID 30 Days tablet 12/08/18 02/21/19 Unknown Rx Sevelamer Carbonate [Renvela] 800 mg PO TIDWM tablet 12/08/18 02/21/19 Unknown Rx hydrALAZINE [Apresoline TAB] 100 mg PO Q8HR #120 tablet 12/08/18 02/21/19 Unknown Rx Acetaminophen [Acetaminophen TAB] 650 mg PO Q12H PRN 12/15/18 02/21/19 Unknown History Glucagon,Human Recombinant 1 mg IJ Q15MIN PRN 12/15/18 02/21/19 Unknown History [Glucagon Emergency Kit] Insulin Aspart [NovoLOG 100 See Protocol SQ QWEEK 12/15/18 02/21/19 Unknown History UNITS/ML VIAL] Active Medications: Generic Name Dose Route Start Last Admin Trade Name Freq PRN Reason Stop Dose Admin Acetaminophen 650 mg 02/21/19 22:19 Tylenol PO Q4H PRN Pain MILD(1-3)/Fever >100.5/HILL Albuterol/Ipratropium 1 ampul 02/24/19 20:00 03/02/19 14:40 Duoneb *Not For Prn Use* IH 1 ampul TIDRT SANCHEZ Administration Lipase/Protease/Amylase 1 each 02/23/19 15:09 Pancreaze 10,500 Unit FEEDTUBE PRN PRN For Clogged Feeding Tube Dextrose 50 ml 02/21/19 22:22 02/23/19 14:51 D50w (25gm) Syringe IV 50 ml PRN PRN Administration Hypoglycemia Famotidine 20 mg 02/23/19 10:00 03/02/19 09:55 Pepcid PO 20 mg DAILY [facility] Administration Hydrophilic Ointment 1 applic 02/21/19 18:24 Vaseline Lip Therapy TP Q2HR PRN Dry Lips Sodium Chloride 100 mls @ 999 mls/hr 02/26/19 09:00 Nacl 0.9% IV UMA PRN Hypotension Insulin Human Regular 0 units 02/26/19 12:00 03/02/19 12:30 Humulin R SUB-Q Not Given Q6HR [facility] Protocol Metoprolol Tartrate 2.5 mg 02/28/19 12:06 03/01/19 10:32 Lopressor IV 2.5 mg Q4HR PRN Administration Tachycardia Metoprolol Tartrate 25 mg 03/02/19 14:00 03/02/19 14:43 Lopressor PO 25 mg TID SANCHEZ Administration Multi-Ingred Cream/Lotion/Oil/Oint 1 applic 02/21/19 18:24 Artificial Tears Ophth Oint OU Q4HR PRN Dry Eye(s) Ondansetron HCl 4 mg 02/21/19 22:19 Zofran IV Q8H PRN Nausea And Vomiting Risperidone 1 mg 02/25/19 13:00 03/02/19 09:55 Risperdal PO 1 mg DAILY SANCHEZ Administration Sertraline HCl 100 mg 02/25/19 13:00 03/02/19 09:54 Zoloft PO 100 mg DAILY SANCHEZ Administration Simple Syrup 15 ml 02/23/19 15:09 Simple Syrup FEEDTUBE PRN PRN Hypoglycemia Simple Syrup 30 ml 02/23/19 15:09 Simple Syrup FEEDTUBE PRN PRN Hypoglycemia Sodium Bicarbonate 325 mg 02/23/19 15:09 Sodium Bicarbonate FEEDTUBE PRN PRN For Clogged Feeding Tube Sodium Chloride 10 ml 02/22/19 10:00 03/02/19 09:55 Sodium Chloride Flush Syringe 10 Ml IV 10 ml BID SANCHEZ Administration Sodium Chloride 10 ml 02/21/19 22:19 02/24/19 22:00 Sodium Chloride Flush Syringe 10 Ml IV 10 ml PRN PRN Administration LINE FLUSH
--- NOTE | 2019-03-02 18:04 | Progress Note ---
Assessment and Plan Assessment and plan: Patient is a 63-year-old -[place] man from [facility] with a plethora of co-morbidities including blindness, CVA, CHF, PPM/ICD, loop recorder since 2012 that is MRI compatible, IDDM type 2, sepsis left foot ulcer, afib, ESRD with complications on HD TTS, hypertension, AOCD and GERD who presented to the ED with hypotensive after intubation in the emergency room. Still intubated, diagnosed with fluid overload, pleural effusion. Patient has had recurrent admission in the hospital for similar reason and was recently discharged from the hospital following treatment of Severe Sepsis due to Necrotizing Unstagable sacral decubitus ulcer with ostemomylitis, expected to complete abx on discharge till 02/16/19. 24 hr update: Trach and peg planned for AM and possible LTAC transfer with anticipated longer weaning process and wound care management. HR control improved with change in BB. Acute respiratory failure on mechanical ventilator >96 hrs Intubated, Pulm consulted weaning trial VAP BUNDLE ASPIRATION BUNDLE Acute pulmonary edema, fluid overload on CXR repeat xray intermittently Dialysis Dilated CMP Continue diuresis Acute encephalopathy, probably metabolic or toxic Continues on Mechanical ventilator. ESRD on hemodialysis nephrology following Vascular eval. done re: LUE AV graft, see note Bilateral pleural effusions Anticipate improvement with Permanent atrial fibrillation and flutter Not on anticoagulation because of anemia thrombocytopenia Change noted to BB agent to IV. 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 -Pt is s/p x1 DDVAP RUL atelectasis, probably mucous plugging DVT prophylaxis Lovenox Full code status poor prognosis The high probability of a clinically significant, sudden or life threatening deterioration of the [pulmonary, neuro, renal] system(s) required my full and direct attention, intervention and personal management. The aggregate critical care time was [35] minutes. This time is in addition to time spent performing reported procedures but includes the following: [x] Data Review and interpretation [x] Patient assessment and monitoring of vital signs [] Documentation [x] Medication orders and management History Interval history: Patient seen and examined remains intubated, encephalopathic, no new complaints. Not tolerating weaning trials. Hospitalist Physical - Physical exam Narrative exam: Gen: Not in acute distress, lying in bed, intubated, not following commands HEENT: Normocephalic, atraumatic Neck: supple, no JVD Heart: S1 and S2 irreg, no murmurs, rubs or gallop Lungs: Bilateral crackles, no wheeze Abd: soft, non tender, non distended, normal BS, PRG tube, Colostomy bag in place, brown stool present, wound dressing in place. Ext: No edema, no clubbing, no cyanosis, ulcer left 5th finger, echymosis Neuro: Intubated MSK: Sacral wound, See wound documentation for detailed exam - Constitutional Vitals: Temp Pulse Resp BP Pulse Ox 98.2 F 81 14 118/67 100 03/02/19 16:45 03/02/19 18:00 03/02/19 16:45 03/02/19 18:00 03/02/19 16:45 General appearance: Present: no acute distress Results - Labs CBC & Chem 7: 03/02/19 05:15 03/02/19 05:15 Labs: Laboratory Last Values WBC 7.1 K/mm3 (4.5-11.0) 03/02/19 05:15 RBC 2.73 M/mm3 (3.65-5.03) L 03/02/19 05:15 Hgb 7.4 gm/dl (11.8-15.2) L 03/02/19 05:15 Hct 23.0 % (35.5-45.6) L 03/02/19 05:15 MCV 84 fl (84-94) 03/02/19 05:15 MCH 27 pg (28-32) L 03/02/19 05:15 MCHC 32 % (32-34) 03/02/19 05:15 RDW 19.9 % (13.2-15.2) H 03/02/19 05:15 Plt Count 207 K/mm3 (140-440) 03/02/19 05:15 Lymph % (Auto) 14.2 % (13.4-35.0) 03/02/19 05:15 [place] % (Auto) 7.9 % (0.0-7.3) H 03/02/19 05:15 Eos % (Auto) 7.6 % (0.0-4.3) H 03/02/19 05:15 Baso % (Auto) 0.6 % (0.0-1.8) 03/02/19 05:15 Lymph # 1.0 K/mm3 (1.2-5.4) L 03/02/19 05:15 [place] # 0.6 K/mm3 (0.0-0.8) 03/02/19 05:15 Eos # 0.5 K/mm3 (0.0-0.4) H 03/02/19 05:15 Baso # 0.0 K/mm3 (0.0-0.1) 03/02/19 05:15 Seg Neutrophils % 69.7 % (40.0-70.0) 03/02/19 05:15 Seg Neutrophils # 5.0 K/mm3 (1.8-7.7) 03/02/19 05:15 PT 16.3 Sec. (12.2-14.9) H 03/01/19 09:39 INR 1.35 (0.87-1.13) H 03/01/19 09:39 APTT 33.7 Sec. (24.2-36.6) 02/21/19 18:30 2987.82 ng/mlDDU (0-234) H 02/22/19 05:54 POC ABG pH 7.483 (7.35-7.45) H 02/27/19 04:35 POC ABG pCO2 37.5 (35-45) 02/27/19 04:35 POC ABG pO2 61 (80-105) L 02/27/19 04:35 POC ABG HCO3 28.1 (22-26 mml/L) 02/27/19 04:35 POC ABG Total CO2 29 (23-27mmol/L) 02/27/19 04:35 POC ABG O2 Sat 93 02/27/19 04:35 POC ABG Base Excess 5 ((-2) - (+3)mmol/L) 02/27/19 04:35 30 % 02/27/19 04:35 Sodium 141 mmol/L (137-145) 03/02/19 05:15 Potassium 5.0 mmol/L (3.6-5.0) 03/02/19 05:15 Chloride 101.7 mmol/L (98-107) 03/02/19 05:15 Carbon Dioxide 28 mmol/L (22-30) 03/02/19 05:15 16 mmol/L 03/02/19 05:15 BUN 43 mg/dL (9-20) H 03/02/19 05:15 3.2 mg/dL (0.8-1.5) H 03/02/19 05:15 Estimated GFR 24 ml/min 03/02/19 05:15 13 % 03/02/19 05:15 Glucose 88 mg/dL (75-100) 03/02/19 05:15 POC Glucose 97 (70-105) 03/02/19 05:22 Lactic Acid 1.00 mmol/L (0.7-2.0) 02/21/19 20:58 Calcium 9.8 mg/dL (8.4-10.2) 03/02/19 05:15 Phosphorus 2.30 mg/dL (2.5-4.5) L 03/02/19 05:15 Magnesium 2.20 mg/dL (1.7-2.3) 03/02/19 05:15 0.20 mg/dL (0.1-1.2) 02/21/19 18:30 AST 17 units/L (5-40) 02/21/19 18:30 ALT 7 units/L (7-56) 02/21/19 18:30 136 units/L (35-129) H 02/21/19 18:30 28.0 umol/L (25-60) 02/21/19 20:04 64 units/L (55-170) 02/22/19 03:42 CK-MB (CK-2) 3.7 ng/mL (0.0-4.0) 02/22/19 03:42 CK-MB (CK-2) Rel Index 5.7 (0-4) H 02/22/19 03:42 0.193 ng/mL (0.00-0.029) H* 02/22/19 03:42 6.7 g/dL (6.3-8.2) 02/21/19 18:30 2.4 g/dL (3.9-5) L 02/21/19 18:30 0.6 % 02/21/19 18:30 Triglycerides 51 mg/dL (2-149) 02/21/19 18:30 Cholesterol 82 mg/dL (50-199) 02/21/19 18:30 36 mg/dL (50-130) L 02/21/19 18:30 40 mg/dL (40-59) 02/21/19 18:30 2.05 % 02/21/19 18:30 TSH 2.760 mlU/mL (0.270-4.200) 02/21/19 20:04 PTH Intact 267.6 pg/mL (15-65) H 03/02/19 05:15 Salicylates < 0.3 mg/dL (2.8-20.0) L 02/21/19 20:04 Acetaminophen < 5.0 ug/mL (10.0-30.0) L 02/21/19 20:04 Hepatitis A IgM Ab Non-reactive (NonReactive) 02/23/19 11:20 Hep Bs Antigen Non-reactive (Negative) 02/23/19 11:20 Hep B Core IgM Ab Non-reactive (NonReactive) 02/23/19 11:20 Non-reactive (NonReactive) 02/23/19 11:20 Active Medications - Current Medications Current Medications: Generic Name Dose Route Start Last Admin Trade Name Freq PRN Reason Stop Dose Admin Acetaminophen 650 mg 02/21/19 22:19 Tylenol PO Q4H PRN Pain MILD(1-3)/Fever >100.5/HILL Albuterol/Ipratropium 1 ampul 02/24/19 20:00 03/02/19 14:40 Duoneb *Not For Prn Use* IH 1 ampul TIDRT SANCHEZ Administration Lipase/Protease/Amylase 1 each 02/23/19 15:09 Pancrejewel Barrientos 10,500 Unit FEEDTUBE PRN PRN For Clogged Feeding Tube Dextrose 50 ml 02/21/19 22:22 02/23/19 14:51 D50w (25gm) Syringe IV 50 ml PRN PRN Administration Hypoglycemia Famotidine 20 mg 02/23/19 10:00 03/02/19 09:55 Pepcid PO 20 mg DAILY SANCHEZ Administration Hydrophilic Ointment 1 applic 02/21/19 18:24 Vaseline Lip Therapy TP Q2HR PRN Dry Lips Sodium Chloride 100 mls @ 999 mls/hr 02/26/19 09:00 Nacl 0.9% IV UMA PRN Hypotension Insulin Human Regular 0 units 02/26/19 12:00 03/02/19 12:30 Humulin R SUB-Q Not Given Q6HR [facility] Protocol Metoprolol Tartrate 2.5 mg 02/28/19 12:06 03/01/19 10:32 Lopressor IV 2.5 mg Q4HR PRN Administration Tachycardia Metoprolol Tartrate 25 mg 03/02/19 14:00 03/02/19 14:43 Lopressor PO 25 mg TID SANCHEZ Administration Multi-Ingred Cream/Lotion/Oil/Oint 1 applic 02/21/19 18:24 Artificial Tears Ophth Oint OU Q4HR PRN Dry Eye(s) Ondansetron HCl 4 mg 02/21/19 22:19 Zofran IV Q8H PRN Nausea And Vomiting Risperidone 1 mg 02/25/19 13:00 03/02/19 09:55 Risperdal PO 1 mg DAILY S[facility]HEZ Administration Sertraline HCl 100 mg 02/25/19 13:00 03/02/19 09:54 Zoloft PO 100 mg DAILY S[facility]HEZ Administration Simple Syrup 15 ml 02/23/19 15:09 Simple Syrup FEEDTUBE PRN PRN Hypoglycemia Simple Syrup 30 ml 02/23/19 15:09 Simple Syrup FEEDTUBE PRN PRN Hypoglycemia Sodium Bicarbonate 325 mg 02/23/19 15:09 Sodium Bicarbonate FEEDTUBE PRN PRN For Clogged Feeding Tube Sodium Chloride 10 ml 02/22/19 10:00 03/02/19 09:55 Sodium Chloride Flush Syringe 10 Ml IV 10 ml BID SANCHEZ Administration Sodium Chloride 10 ml 02/21/19 22:19 02/24/19 22:00 Sodium Chloride Flush Syringe 10 Ml IV 10 ml PRN PRN Administration LINE FLUSH Nutrition/Malnutrition Assess - Dietary Evaluation Nutrition/Malnutrition Findings: Nutrition Notes Start: 02/22/19 12:51 Freq: Status: Active Protocol: Document 02/26/19 13:54 RM (Rec: 02/26/19 13:59 RM [id number]) Nutrition Notes Initial or Follow up Reassessment Current Diagnosis Diabetes,Hypertension Other Pertinent Diagnosis Sacral PU, ESRD on HD (T/Thurs /Sat), Schizophrenia, Blind in L eye Current Diet Vital 1.2 at 70 ml/hr Labs/Tests K 3.9 Pertinent Medications Reviewed Height 5 ft 10 in Weight 88.7 kg [place] Body Weight (kg) 75.45 BMI 28.0 Subjective/Other Information Observed Vital 1.2 infusing at goal rate. Per nurse pt is tolerating TF and receiving Abhilash. Percent of energy/protein needs met: 100%/100% Burn Absent Trauma Absent #2 Nutrition Diagnosis Increased nutrient needs ( specify in comment below) Diagnosis Progress(for reassessment Continues documentation) #1 Nutrition Diagnosis Inadequate oral intake Diagnosis Progress(for reassessment Continues documentation) Is patient on ventilator? Yes Is Patient Ambulatory and/or Out of Bed No REE-([facility]-confined to bed) Calculation Used for Recommendations Kcal/kg Additional Notes Protein Needs: 106-177g (1.2- 2g/kg) Fluid Needs: 1 ml/kcal Nutrition Intervention Nutrition Support: Vital 1.2 at 70 ml/hr Water flush of 100 mls q 4 hrs Kcal 2,016 Protein (gm) 126 Fluid (mL) 1,362 Add Supplement/Snack (indicate name/kcal Abhilash BID /protein ) Provides kCal: 190 Provides Protein (gm) 5 Goal #1 TF tolerance Goal #2 Continue to meet at least 80% of calorie and protein needs via TF Anticipated Discharge Needs: Unable to determine at this time Follow-Up By: 03/05/19 Additional Comments Follow for TF tolerance
[2019-03-02] MEDS ORDERED: SODIUM CHLORIDE 0.9% 1000 ML 2,000 ML ONE (19:44)
[2019-03-03] MEDS: INSULIN REGULAR, HUMAN 100 UNITS/1 ML SUB-Q SCH ×3 (00:31→18:49)
[2019-03-03] MEDS: METOPROLOL TARTRATE 25 MG TAB PO SCH ×3 (08:00→20:11)
--- NOTE | 2019-03-03 09:07 | Progress Note ---
Assessment and Plan Assessment: * End stage renal disease (outpatient TTS schedule) * Acute hypoxic respiratory failure on mechanical ventilation * Atrial fibrillation * History of CVA * Anemia secondary to ESRD * Secondary hyperparathyroidism Plan * Continue HD MWF schedule for now * UF as tolerated * Note plans for trach * Permcath removal prior to dc per vascular surgery notes * Empiric abx per ID/primary team * Nutrition per primary team * Dose medications for renal function * Epogen TID prn Subjective Date of service: 03/03/19 Principal diagnosis: respiratory failure Interval history: Chart reviewed. No acute events overnight. Objective - Vital Signs Vital signs: Vital Signs - 12hr 03/02/19 03/02/19 03/02/19 21:07 22:00 23:00 Temperature 97.2 F L Pulse Rate 82 Pulse Rate [ 81 Brachial] Pulse Rate [ From Monitor] Pulse Rate [ Left Posterior Tibial] Pulse Rate [ Right Posterior Tibial] Respiratory 14 12 18 Rate Blood Pressure 109/64 145/62 127/69 O2 Sat by Pulse 100 100 Oximetry O2 Sat by Pulse 100 Oximetry [ Throughout] 03/02/19 03/02/19 03/02/19 23:34 23:35 23:58 Temperature 98.9 F Pulse Rate 82 Pulse Rate [ Brachial] Pulse Rate [ 78 From Monitor] Pulse Rate [ 78 Left Posterior Tibial] Pulse Rate [ 78 Right Posterior Tibial] Respiratory 15 Rate Blood Pressure 145/79 O2 Sat by Pulse 100 99 Oximetry O2 Sat by Pulse Oximetry [ Throughout] 03/03/19 03/03/19 03/03/19 00:00 01:00 03:00 Temperature Pulse Rate Pulse Rate [ 82 81 80 Brachial] Pulse Rate [ From Monitor] Pulse Rate [ Left Posterior Tibial] Pulse Rate [ Right Posterior Tibial] Respiratory 20 16 15 Rate Blood Pressure 129/94 129/74 125/62 O2 Sat by Pulse 100 100 100 Oximetry O2 Sat by Pulse Oximetry [ Throughout] 03/03/19 03/03/19 03/03/19 03:16 03:22 04:00 Temperature 98.8 F Pulse Rate 80 80 Pulse Rate [ 80 Brachial] Pulse Rate [ 78 From Monitor] Pulse Rate [ 78 Left Posterior Tibial] Pulse Rate [ 78 Right Posterior Tibial] Respiratory 15 Rate Blood Pressure 130/71 129/63 O2 Sat by Pulse 100 100 Oximetry O2 Sat by Pulse Oximetry [ Throughout] 03/03/19 03/03/19 05:00 06:00 Temperature Pulse Rate Pulse Rate [ 81 80 Brachial] Pulse Rate [ From Monitor] Pulse Rate [ Left Posterior Tibial] Pulse Rate [ Right Posterior Tibial] Respiratory Rate Blood Pressure 119/59 128/64 O2 Sat by Pulse 100 100 Oximetry O2 Sat by Pulse Oximetry [ Throughout] - General Appearance General appearance: intubated EENT: ATNC, other (ETT in place) Respiratory: Present: Other (coarse breath sounds) Cardiology: regular, S1S2 Gastrointestinal: no tenderness, no distended, other (colostomy, PEG) Integumentary: no rash, warm and dry Musculoskeletal: other (+tedema) - Lab 03/02/19 05:15 03/03/19 13:30 Most recent lab results Calcium 9.8 mg/dL (8.4-10.2) 03/02/19 05:15 Phosphorus 2.30 mg/dL (2.5-4.5) L 03/02/19 05:15 Magnesium 2.20 mg/dL (1.7-2.3) 03/02/19 05:15 Medications & Allergies - Medications Allergies/Adverse Reactions: Allergies haloperidol [From Haldol] Adverse Reaction (Verified 03/13/18 12:10) Unknown haloperidol lactate [From Haldol] Adverse Reaction (Verified 03/13/18 12:10) Unknown Home Medications: Home Medications Medication Instructions Recorded Confirmed Last Taken Type risperiDONE [RisperDAL] 1 mg PO QAM 03/13/18 02/21/19 Unknown History Sertraline [Zoloft] 100 mg PO QDAY 08/26/18 02/21/19 Unknown History Polyethylene Glycol 3350 [Miralax 17 gm PO QDAY #30 packet 11/05/18 02/21/19 Unknown Rx 3350] Aspirin EC [Halfprin EC] 81 mg PO DAILY #30 11/19/18 02/21/19 Unknown Rx Docusate Sodium [Colace CAP] 100 mg PO BID #60 11/19/18 02/21/19 Unknown Rx Folic Acid [Folvite] 1 mg PO DAILY #30 tab 11/19/18 02/21/19 Unknown Rx Famotidine [Pepcid] 20 mg PO DAILY tablet 12/08/18 02/21/19 Unknown Rx Gabapentin [Neurontin] 100 mg PO QHS capsule 12/08/18 02/21/19 Unknown Rx Metoprolol [Lopressor TAB] 50 mg PO BID 30 Days tablet 12/08/18 02/21/19 Unknown Rx Sevelamer Carbonate [Renvela] 800 mg PO TIDWM tablet 12/08/18 02/21/19 Unknown Rx hydrALAZINE [Apresoline TAB] 100 mg PO Q8HR #120 tablet 12/08/18 02/21/19 Unknown Rx Acetaminophen [Acetaminophen TAB] 650 mg PO Q12H PRN 12/15/18 02/21/19 Unknown History Glucagon,Human Recombinant 1 mg IJ Q15MIN PRN 12/15/18 02/21/19 Unknown History [Glucagon Emergency Kit] Insulin Aspart [NovoLOG 100 See Protocol SQ QWEEK 12/15/18 02/21/19 Unknown History UNITS/ML VIAL] Active Medications: Generic Name Dose Route Start Last Admin Trade Name Freq PRN Reason Stop Dose Admin Acetaminophen 650 mg 02/21/19 22:19 Tylenol PO Q4H PRN Pain MILD(1-3)/Fever >100.5/HILL Albuterol/Ipratropium 1 ampul 02/24/19 20:00 03/02/19 19:03 Duoneb *Not For Prn Use* IH 1 ampul TIDRT SANCHEZ Administration Lipase/Protease/Amylase 1 each 02/23/19 15:09 Pancreazkaren Barrientos 10,500 Unit FEEDTUBE PRN PRN For Clogged Feeding Tube Dextrose 50 ml 02/21/19 22:22 02/23/19 14:51 D50w (25gm) Syringe IV 50 ml PRN PRN Administration Hypoglycemia Famotidine 20 mg 02/23/19 10:00 03/02/19 09:55 Pepcid PO 20 mg DAILY SANCHEZ Administration Hydrophilic Ointment 1 applic 02/21/19 18:24 Vaseline Lip Therapy TP Q2HR PRN Dry Lips Sodium Chloride 100 mls @ 999 mls/hr 02/26/19 09:00 Nacl 0.9% IV UMA PRN Hypotension Insulin Human Regular 0 units 02/26/19 12:00 03/03/19 00:31 Humulin R SUB-Q Not Given Q6HR [facility] Protocol Metoprolol Tartrate 2.5 mg 02/28/19 12:06 03/01/19 10:32 Lopressor IV 2.5 mg Q4HR PRN Administration Tachycardia Metoprolol Tartrate 25 mg 03/02/19 14:00 03/02/19 21:05 Lopressor PO 25 mg TID SANCHEZ Administration Multi-Ingred Cream/Lotion/Oil/Oint 1 applic 02/21/19 18:24 Artificial Tears Ophth Oint OU Q4HR PRN Dry Eye(s) Ondansetron HCl 4 mg 02/21/19 22:19 Zofran IV Q8H PRN Nausea And Vomiting Risperidone 1 mg 02/25/19 13:00 03/02/19 09:55 Risperdal PO 1 mg DAILY SANCHEZ Administration Sertraline HCl 100 mg 02/25/19 13:00 03/02/19 09:54 Zoloft PO 100 mg DAILY SANCHEZ Administration Simple Syrup 15 ml 02/23/19 15:09 Simple Syrup FEEDTUBE PRN PRN Hypoglycemia Simple Syrup 30 ml 02/23/19 15:09 Simple Syrup FEEDTUBE PRN PRN Hypoglycemia Sodium Bicarbonate 325 mg 02/23/19 15:09 Sodium Bicarbonate FEEDTUBE PRN PRN For Clogged Feeding Tube Sodium Chloride 10 ml 02/22/19 10:00 03/02/19 22:00 Sodium Chloride Flush Syringe 10 Ml IV 10 ml BID SANCHEZ Administration Sodium Chloride 10 ml 02/21/19 22:19 02/24/19 22:00 Sodium Chloride Flush Syringe 10 Ml IV 10 ml PRN PRN Administration LINE FLUSH
[2019-03-03] MEDS: IPRATROPIUM/ALBUTEROL SULFATE 3 ML AMPUL.NEB IH SCH ×3 (09:13→20:46)
--- NOTE | 2019-03-03 09:55 | Progress Note ---
Assessment and Plan 63 y/o male with multiple medical issues admitted with altered mental status, acute respiratory failure requiring mechanical ventilation 1. Continue vent support, awaiting time and date for trach placement. 2. HD per renal 3. Agree with IMS, given multiple admissions and several events requiring intubation, trach very reasonable. Surgery has already evaluated. 4. Continue oral TID BB and continue PRN IV lopressor. 5. Continue to monitor in ICU. CCT 31 minutes. Subjective Date of service: 03/03/19 Principal diagnosis: respiratory failure Interval history: No acute events. No labs drawn today. HR is better. Objective Vital Signs - 12hr 03/02/19 03/02/19 03/02/19 22:00 23:00 23:34 Temperature 98.9 F Pulse Rate Pulse Rate [ Anterior Bilateral Throughout] Pulse Rate [ 81 Brachial] Pulse Rate [ From Monitor] Pulse Rate [ Left Posterior Tibial] Pulse Rate [ Right Posterior Tibial] Respiratory 12 18 Rate Respiratory Rate [Anterior Bilateral Throughout] Blood Pressure 145/62 127/69 O2 Sat by Pulse 100 100 Oximetry 03/02/19 03/02/19 03/03/19 23:35 23:58 00:00 Temperature Pulse Rate 82 Pulse Rate [ Anterior Bilateral Throughout] Pulse Rate [ 82 Brachial] Pulse Rate [ 78 From Monitor] Pulse Rate [ 78 Left Posterior Tibial] Pulse Rate [ 78 Right Posterior Tibial] Respiratory 15 20 Rate Respiratory Rate [Anterior Bilateral Throughout] Blood Pressure 145/79 129/94 O2 Sat by Pulse 100 99 100 Oximetry 03/03/19 03/03/19 03/03/19 01:00 03:00 03:16 Temperature 98.8 F Pulse Rate Pulse Rate [ Anterior Bilateral Throughout] Pulse Rate [ 81 80 Brachial] Pulse Rate [ From Monitor] Pulse Rate [ Left Posterior Tibial] Pulse Rate [ Right Posterior Tibial] Respiratory 16 15 Rate Respiratory Rate [Anterior Bilateral Throughout] Blood Pressure 129/74 125/62 O2 Sat by Pulse 100 100 Oximetry 03/03/19 03/03/19 03/03/19 03:22 04:00 05:00 Temperature Pulse Rate 80 80 Pulse Rate [ Anterior Bilateral Throughout] Pulse Rate [ 80 81 Brachial] Pulse Rate [ 78 From Monitor] Pulse Rate [ 78 Left Posterior Tibial] Pulse Rate [ 78 Right Posterior Tibial] Respiratory 15 Rate Respiratory Rate [Anterior Bilateral Throughout] Blood Pressure 130/71 129/63 119/59 O2 Sat by Pulse 100 100 100 Oximetry 03/03/19 03/03/19 03/03/19 06:00 09:09 09:13 Temperature Pulse Rate 81 Pulse Rate [ 81 Anterior Bilateral Throughout] Pulse Rate [ 80 Brachial] Pulse Rate [ From Monitor] Pulse Rate [ Left Posterior Tibial] Pulse Rate [ Right Posterior Tibial] Respiratory Rate Respiratory 14 Rate [Anterior Bilateral Throughout] Blood Pressure 128/64 128/62 O2 Sat by Pulse 100 100 Oximetry Constitutional: alert, other (critically ill on vent) Eyes: non-icteric Effort: normal Ascultation: Bilateral: diminished breath sounds, other (coarse BS bilaterally) Percussion: Bilateral: not dull Cardiovascular: regular rate and rhythm (no mrg) Gastrointestinal: normoactive bowel sounds, soft, non-tender, non-distended Extremities: no edema, pink and warm Neurologic: other (somnolent, minimally arousable, squeezes with R and L hand and wiggles toes on command) Psychiatric: other (unable to assess) CBC and BMP: 03/02/19 05:15 03/02/19 05:15 ABG, PT/INR, D-dimer: ABG POC ABG pH 7.483 (7.35-7.45) H 02/27/19 04:35 POC ABG pCO2 37.5 (35-45) 02/27/19 04:35 POC ABG pO2 61 (80-105) L 02/27/19 04:35 POC ABG HCO3 28.1 (22-26 mml/L) 02/27/19 04:35 POC ABG Total CO2 29 (23-27mmol/L) 02/27/19 04:35 POC ABG O2 Sat 93 02/27/19 04:35 PT/INR, D-dimer PT 16.3 Sec. (12.2-14.9) H 03/01/19 09:39 INR 1.35 (0.87-1.13) H 03/01/19 09:39 2987.82 ng/mlDDU (0-234) H 02/22/19 05:54 Abnormal lab findings: Abnormal Labs 02/21/19 02/21/19 02/21/19 18:30 18:30 18:30 RBC 3.26 L Hgb 8.8 L Hct 29.0 L MCH 27 L MCHC 30 L RDW 19.1 H Lymph % (Auto) 6.1 L Potter % (Auto) Eos % (Auto) Lymph # 0.4 L Eos # Seg Neutrophils % 86.2 H PT INR D-Dimer POC ABG pH POC ABG pCO2 POC ABG pO2 Sodium 133 L Potassium 3.3 L Chloride 93.1 L Carbon Dioxide 33 H BUN Creatinine Glucose 161 H POC Glucose Phosphorus Alkaline Phosphatase 136 H Total Creatine Kinase 37 L CK-MB (CK-2) Rel Index Troponin T 0.192 H* Albumin 2.4 L LDL Cholesterol Direct 36 L PTH Intact Salicylates Acetaminophen 02/21/19 02/21/19 02/21/19 18:42 20:04 20:04 RBC Hgb Hct MCH MCHC RDW Lymph % (Auto) Potter % (Auto) Eos % (Auto) Lymph # Eos # Seg Neutrophils % PT INR D-Dimer POC ABG pH POC ABG pCO2 56.7 H POC ABG pO2 291 H Sodium Potassium Chloride Carbon Dioxide BUN Creatinine Glucose POC Glucose Phosphorus Alkaline Phosphatase Total Creatine Kinase CK-MB (CK-2) Rel Index Troponin T Albumin LDL Cholesterol Direct PTH Intact Salicylates < 0.3 L Acetaminophen < 5.0 L 02/21/19 02/22/19 02/22/19 22:35 03:42 03:42 RBC 3.20 L Hgb 8.8 L Hct 27.6 L MCH MCHC RDW 18.9 H Lymph % (Auto) 7.4 L Potter % (Auto) Eos % (Auto) Lymph # 0.7 L Eos # Seg Neutrophils % 84.7 H PT INR D-Dimer POC ABG pH POC ABG pCO2 POC ABG pO2 Sodium 134 L Potassium 2.6 L* D Chloride Carbon Dioxide BUN Creatinine Glucose POC Glucose Phosphorus Alkaline Phosphatase Total Creatine Kinase CK-MB (CK-2) Rel Index 5.2 H Troponin T 0.202 H* Albumin LDL Cholesterol Direct PTH Intact Salicylates Acetaminophen 02/22/19 02/22/19 02/22/19 03:42 05:54 09:04 RBC Hgb Hct MCH MCHC RDW Lymph % (Auto) Potter % (Auto) Eos % (Auto) Lymph # Eos # Seg Neutrophils % PT INR D-Dimer 2987.82 H POC ABG pH 7.451 H POC ABG pCO2 POC ABG pO2 Sodium Potassium Chloride Carbon Dioxide BUN Creatinine Glucose POC Glucose Phosphorus Alkaline Phosphatase Total Creatine Kinase CK-MB (CK-2) Rel Index 5.7 H Troponin T 0.193 H* Albumin LDL Cholesterol Direct PTH Intact Salicylates Acetaminophen 02/22/19 02/22/19 02/23/19 10:36 23:56 00:52 RBC Hgb Hct MCH MCHC RDW Lymph % (Auto) Potter % (Auto) Eos % (Auto) Lymph # Eos # Seg Neutrophils % PT INR D-Dimer POC ABG pH POC ABG pCO2 POC ABG pO2 Sodium Potassium 3.1 L Chloride Carbon Dioxide BUN Creatinine Glucose POC Glucose 58 L 111 H Phosphorus Alkaline Phosphatase Total Creatine Kinase CK-MB (CK-2) Rel Index Troponin T Albumin LDL Cholesterol Direct PTH Intact Salicylates Acetaminophen 02/23/19 02/23/19 02/23/19 05:00 06:35 14:26 RBC Hgb Hct MCH MCHC RDW Lymph % (Auto) Potter % (Auto) Eos % (Auto) Lymph # Eos # Seg Neutrophils % PT INR D-Dimer POC ABG pH POC ABG pCO2 POC ABG pO2 Sodium 135 L Potassium 3.1 L Chloride Carbon Dioxide BUN 21 H Creatinine 2.0 H Glucose 57 L POC Glucose 64 L 62 L Phosphorus Alkaline Phosphatase Total Creatine Kinase CK-MB (CK-2) Rel Index Troponin T Albumin LDL Cholesterol Direct PTH Intact Salicylates Acetaminophen 02/24/19 02/24/19 02/24/19 02:11 04:12 04:55 RBC 2.84 L Hgb 7.8 L Hct 24.5 L MCH MCHC RDW 19.5 H Lymph % (Auto) Potter % (Auto) Eos % (Auto) Lymph # Eos # Seg Neutrophils % PT INR D-Dimer POC ABG pH 7.511 H POC ABG pCO2 33.9 L POC ABG pO2 62 L Sodium Potassium Chloride Carbon Dioxide BUN Creatinine Glucose POC Glucose 69 L Phosphorus Alkaline Phosphatase Total Creatine Kinase CK-MB (CK-2) Rel Index Troponin T Albumin LDL Cholesterol Direct PTH Intact Salicylates Acetaminophen 02/24/19 02/24/19 02/25/19 04:55 05:41 04:45 RBC Hgb Hct MCH MCHC RDW Lymph % (Auto) Potter % (Auto) Eos % (Auto) Lymph # Eos # Seg Neutrophils % PT INR D-Dimer POC ABG pH 7.466 H POC ABG pCO2 POC ABG pO2 75 L Sodium Potassium Chloride Carbon Dioxide BUN Creatinine 1.8 H Glucose 73 L POC Glucose 127 H Phosphorus Alkaline Phosphatase Total Creatine Kinase CK-MB (CK-2) Rel Index Troponin T Albumin LDL Cholesterol Direct PTH Intact Salicylates Acetaminophen 02/25/19 02/25/19 02/26/19 16:34 21:33 03:45 RBC 2.96 L Hgb 8.0 L Hct 25.8 L MCH 27 L MCHC 31 L RDW 20.0 H Lymph % (Auto) Potter % (Auto) Eos % (Auto) Lymph # Eos # Seg Neutrophils % PT INR D-Dimer POC ABG pH POC ABG pCO2 POC ABG pO2 Sodium Potassium Chloride Carbon Dioxide BUN Creatinine Glucose POC Glucose 141 H 106 H Phosphorus Alkaline Phosphatase Total Creatine Kinase CK-MB (CK-2) Rel Index Troponin T Albumin LDL Cholesterol Direct PTH Intact Salicylates Acetaminophen 02/26/19 02/26/19 02/26/19 03:45 04:13 07:53 RBC Hgb Hct MCH MCHC RDW Lymph % (Auto) Potter % (Auto) Eos % (Auto) Lymph # Eos # Seg Neutrophils % PT INR D-Dimer POC ABG pH 7.470 H POC ABG pCO2 POC ABG pO2 Sodium Potassium Chloride Carbon Dioxide BUN Creatinine 1.8 H Glucose POC Glucose 110 H Phosphorus Alkaline Phosphatase Total Creatine Kinase CK-MB (CK-2) Rel Index Troponin T Albumin LDL Cholesterol Direct PTH Intact Salicylates Acetaminophen 02/26/19 02/26/19 02/27/19 11:56 17:43 00:12 RBC Hgb Hct MCH MCHC RDW Lymph % (Auto) Potter % (Auto) Eos % (Auto) Lymph # Eos # Seg Neutrophils % PT INR D-Dimer POC ABG pH POC ABG pCO2 POC ABG pO2 Sodium Potassium Chloride Carbon Dioxide BUN Creatinine Glucose POC Glucose 112 H 127 H 127 H Phosphorus Alkaline Phosphatase Total Creatine Kinase CK-MB (CK-2) Rel Index Troponin T Albumin LDL Cholesterol Direct PTH Intact Salicylates Acetaminophen 02/27/19 02/27/19 02/27/19 04:35 13:15 18:02 RBC Hgb Hct MCH MCHC RDW Lymph % (Auto) Potter % (Auto) Eos % (Auto) Lymph # Eos # Seg Neutrophils % PT INR D-Dimer POC ABG pH 7.483 H POC ABG pCO2 POC ABG pO2 61 L Sodium Potassium Chloride Carbon Dioxide BUN Creatinine Glucose POC Glucose 143 H 106 H Phosphorus Alkaline Phosphatase Total Creatine Kinase CK-MB (CK-2) Rel Index Troponin T Albumin LDL Cholesterol Direct PTH Intact Salicylates Acetaminophen 02/28/19 02/28/19 02/28/19 05:50 11:59 17:52 RBC Hgb Hct MCH MCHC RDW Lymph % (Auto) Potter % (Auto) Eos % (Auto) Lymph # Eos # Seg Neutrophils % PT INR D-Dimer POC ABG pH POC ABG pCO2 POC ABG pO2 Sodium Potassium Chloride Carbon Dioxide BUN Creatinine Glucose POC Glucose 134 H 128 H 142 H Phosphorus Alkaline Phosphatase Total Creatine Kinase CK-MB (CK-2) Rel Index Troponin T Albumin LDL Cholesterol Direct PTH Intact Salicylates Acetaminophen 02/28/19 03/01/19 03/01/19 23:13 05:40 09:39 RBC Hgb Hct MCH MCHC RDW Lymph % (Auto) Potter % (Auto) Eos % (Auto) Lymph # Eos # Seg Neutrophils % PT 16.3 H INR 1.35 H D-Dimer POC ABG pH POC ABG pCO2 POC ABG pO2 Sodium Potassium Chloride Carbon Dioxide BUN Creatinine Glucose POC Glucose 112 H 111 H Phosphorus Alkaline Phosphatase Total Creatine Kinase CK-MB (CK-2) Rel Index Troponin T Albumin LDL Cholesterol Direct PTH Intact Salicylates Acetaminophen 03/01/19 03/01/19 03/01/19 11:56 13:54 17:59 RBC Hgb Hct MCH MCHC RDW Lymph % (Auto) Potter % (Auto) Eos % (Auto) Lymph # Eos # Seg Neutrophils % PT INR D-Dimer POC ABG pH POC ABG pCO2 POC ABG pO2 Sodium Potassium Chloride Carbon Dioxide BUN 33 H Creatinine 2.8 H D Glucose 176 H POC Glucose 199 H 147 H Phosphorus Alkaline Phosphatase Total Creatine Kinase CK-MB (CK-2) Rel Index Troponin T Albumin LDL Cholesterol Direct PTH Intact Salicylates Acetaminophen 03/02/19 03/02/19 03/02/19 05:15 05:15 05:15 RBC 2.73 L Hgb 7.4 L Hct 23.0 L MCH 27 L MCHC RDW 19.9 H Lymph % (Auto) Potter % (Auto) 7.9 H Eos % (Auto) 7.6 H Lymph # 1.0 L Eos # 0.5 H Seg Neutrophils % PT INR D-Dimer POC ABG pH POC ABG pCO2 POC ABG pO2 Sodium Potassium Chloride Carbon Dioxide BUN 43 H Creatinine 3.2 H Glucose POC Glucose Phosphorus 2.30 L Alkaline Phosphatase Total Creatine Kinase CK-MB (CK-2) Rel Index Troponin T Albumin LDL Cholesterol Direct PTH Intact 267.6 H Salicylates Acetaminophen 03/02/19 03/02/19 12:32 18:20 RBC Hgb Hct MCH MCHC RDW Lymph % (Auto) Potter % (Auto) Eos % (Auto) Lymph # Eos # Seg Neutrophils % PT INR D-Dimer POC ABG pH POC ABG pCO2 POC ABG pO2 Sodium Potassium Chloride Carbon Dioxide BUN Creatinine Glucose POC Glucose 111 H 156 H Phosphorus Alkaline Phosphatase Total Creatine Kinase CK-MB (CK-2) Rel Index Troponin T Albumin LDL Cholesterol Direct PTH Intact Salicylates Acetaminophen
[2019-03-03] MEDS: risperiDONE 1 MG TAB PO SCH (10:00)
[2019-03-03] MEDS: FAMOTIDINE 20 MG TAB PO SCH (10:00)
[2019-03-03] MEDS: SERTRALINE 100 MG TAB PO SCH (10:00)
[2019-03-03] MEDS ORDERED: WATER FOR IRRIG STERILE 250 ML BOTTLE IR ONE (13:17)
[2019-03-03] MEDS ORDERED: SODIUM CHLORIDE 0.9% 1000 ML 1,000 ML ONE (13:17)
[2019-03-03 14:13] LABS: Calcium 9.5 mg/dL (8.4-10.2)
[2019-03-03] MEDS ORDERED: PROPOFOL 200 MG/20 ML VIAL IV ONE (14:17)
--- NOTE | 2019-03-03 15:33 | Anesthesia Day of Surgery ---
Anesthesia Day of Surgery - Day of Surgery Patient Examined: Yes Patient H&P Reviewed: Yes Patient is NPO: Yes
--- NOTE | 2019-03-03 15:33 | Anesthesia Consultation ---
Anesthesia Consult and Med Hx Date of service: 03/03/19 - Airway Intubation Access Assessment: Probably Good (oETT in situ) - Pulmonary Exam CTA: No - Cardiac Exam Cardiac Exam: RRR - Pre-Operative Health Status ASA Pre-Surgery Classification: ASA4 Proposed Anesthetic Plan: MAC - Pulmonary Hx Respiratory Symptoms: Yes (acute hypoxic respiratory failure) - Cardiovascular System Hx Hypertension: Yes Hx Heart Attack/AMI: Yes (NSTEMI this admission) Hx Percutaneous Transluminal Coronary Angioplasty (PTCA): No Hx Cardia Arrhythmia: Yes (a-fib) Hx Pacemaker: Yes Hx Internal Defibrillator: Yes - Central Nervous System CVA: Yes Hx Psychiatric Problems: Yes (schizophrenia) - Endocrine Hx End Stage Renal Disease: Yes (TTS HD) Hx Liver Disease: No Hx Insulin Dependent Diabetes: Yes Hx Hypothyroidism: Yes - Hematic Hx Anemia: Yes - Other Systems Hx Obesity: No
[2019-03-03] MEDS ORDERED: ROCURONIUM 50 MG/5 ML INJ IV ONE (15:55)
--- NOTE | 2019-03-03 16:21 | Progress Note ---
Assessment and Plan Assessment and plan: Patient is a 63-year-old -[place] man from [facility] with a plethora of co-morbidities including blindness, CVA, CHF, PPM/ICD, loop recorder since 2012 that is MRI compatible, IDDM type 2, sepsis left foot ulcer, afib, ESRD with complications on HD TTS, hypertension, AOCD and GERD who presented to the ED with hypotensive after intubation in the emergency room. Still intubated, diagnosed with fluid overload, pleural effusion. Patient has had recurrent admission in the hospital for similar reason and was recently discharged from the hospital following treatment of Severe Sepsis due to Necrotizing Unstagable sacral decubitus ulcer with ostemomylitis, expected to complete abx on discharge till 02/16/19. 24 hr update: Trach and peg planned for AM and possible LTAC transfer with ant icipated longer weaning process and wound care management. HR control improved with change in BB. Acute respiratory failure on mechanical ventilator >96 hrs Intubated, Pulm consulted weaning trial VAP BUNDLE ASPIRATION BUNDLE Acute pulmonary edema, fluid overload on CXR repeat xray intermittently Dialysis Dilated CMP Continue diuresis Acute encephalopathy, probably metabolic or toxic Continues on Mechanical ventilator. ESRD on hemodialysis nephrology following Vascular eval. done re: LUE AV graft, see note Bilateral pleural effusions Anticipate improvement with Permanent atrial fibrillation and flutter Not on anticoagulation because of anemia thrombocytopenia Change noted to BB agent to IV. 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 -Pt is s/p x1 DDVAP RUL atelectasis, probably mucous plugging DVT prophylaxis Lovenox Full code status poor prognosis The high probability of a clinically significant, sudden or life threatening deterioration of the [pulmonary, neuro, renal] system(s) required my full and direct attention, intervention and personal management. The aggregate critical care time was [35] minutes. This time is in addition to time spent performing reported procedures but includes the following: [x] Data Review and interpretation [x] Patient assessment and monitoring of vital signs [] Documentation [x] Medication orders and management History Interval history: Patient was seen and evaluated this morning, Patient is intubated on MV. Hospitalist Physical - Physical exam Narrative exam: Intubated on MV. The patient appeared well nourished and normally developed. Vital signs as documented. Head exam is unremarkable. No scleral icterus . Neck is without jugular venous distension, thyromegaly, or carotid bruits. Lungs are clear to auscultation. Cardiac exam reveals regular rate and Rhythm. First and second heart sounds normal. No murmurs, rubs or gallops. Abdominal exam reveals PEG tube in place, colostomy bag in place. Extremities are nonedematous and both femoral and pedal pulses are normal. QUALITY AUDIT REPRESENTATIVE: Comatose - Constitutional Vitals: Temp Pulse Resp BP Pulse Ox 97 F L 80 14 144/83 100 03/03/19 12:00 03/03/19 15:00 03/03/19 14:14 03/03/19 15:00 03/03/19 15:00 General appearance: Present: no acute distress Results - Labs CBC & Chem 7: 03/02/19 05:15 03/03/19 13:30 Labs: Laboratory Last Values WBC 7.1 K/mm3 (4.5-11.0) 03/02/19 05:15 RBC 2.73 M/mm3 (3.65-5.03) L 03/02/19 05:15 Hgb 7.4 gm/dl (11.8-15.2) L 03/02/19 05:15 Hct 23.0 % (35.5-45.6) L 03/02/19 05:15 MCV 84 fl (84-94) 03/02/19 05:15 MCH 27 pg (28-32) L 03/02/19 05:15 MCHC 32 % (32-34) 03/02/19 05:15 RDW 19.9 % (13.2-15.2) H 03/02/19 05:15 Plt Count 207 K/mm3 (140-440) 03/02/19 05:15 Lymph % (Auto) 14.2 % (13.4-35.0) 03/02/19 05:15 [place] % (Auto) 7.9 % (0.0-7.3) H 03/02/19 05:15 Eos % (Auto) 7.6 % (0.0-4.3) H 03/02/19 05:15 Baso % (Auto) 0.6 % (0.0-1.8) 03/02/19 05:15 Lymph # 1.0 K/mm3 (1.2-5.4) L 03/02/19 05:15 [place] # 0.6 K/mm3 (0.0-0.8) 03/02/19 05:15 Eos # 0.5 K/mm3 (0.0-0.4) H 03/02/19 05:15 Baso # 0.0 K/mm3 (0.0-0.1) 03/02/19 05:15 Seg Neutrophils % 69.7 % (40.0-70.0) 03/02/19 05:15 Seg Neutrophils # 5.0 K/mm3 (1.8-7.7) 03/02/19 05:15 PT 16.3 Sec. (12.2-14.9) H 03/01/19 09:39 INR 1.35 (0.87-1.13) H 03/01/19 09:39 APTT 33.7 Sec. (24.2-36.6) 02/21/19 18:30 2987.82 ng/mlDDU (0-234) H 02/22/19 05:54 POC ABG pH 7.483 (7.35-7.45) H 02/27/19 04:35 POC ABG pCO2 37.5 (35-45) 02/27/19 04:35 POC ABG pO2 61 (80-105) L 02/27/19 04:35 POC ABG HCO3 28.1 (22-26 mml/L) 02/27/19 04:35 POC ABG Total CO2 29 (23-27mmol/L) 02/27/19 04:35 POC ABG O2 Sat 93 02/27/19 04:35 POC ABG Base Excess 5 ((-2) - (+3)mmol/L) 02/27/19 04:35 30 % 02/27/19 04:35 Sodium 137 mmol/L (137-145) 03/03/19 13:30 Potassium 4.2 mmol/L (3.6-5.0) 03/03/19 13:30 Chloride 97.3 mmol/L (98-107) L 03/03/19 13:30 Carbon Dioxide 29 mmol/L (22-30) 03/03/19 13:30 15 mmol/L 03/03/19 13:30 BUN 26 mg/dL (9-20) H 03/03/19 13:30 2.2 mg/dL (0.8-1.5) H 03/03/19 13:30 Estimated GFR 37 ml/min 03/03/19 13:30 12 % 03/03/19 13:30 Glucose 73 mg/dL (75-100) L 03/03/19 13:30 POC Glucose 77 (70-105) 03/03/19 05:20 Lactic Acid 1.00 mmol/L (0.7-2.0) 02/21/19 20:58 Calcium 9.5 mg/dL (8.4-10.2) 03/03/19 13:30 Phosphorus 2.30 mg/dL (2.5-4.5) L 03/02/19 05:15 Magnesium 2.20 mg/dL (1.7-2.3) 03/02/19 05:15 0.20 mg/dL (0.1-1.2) 02/21/19 18:30 AST 17 units/L (5-40) 02/21/19 18:30 ALT 7 units/L (7-56) 02/21/19 18:30 136 units/L (35-129) H 02/21/19 18:30 28.0 umol/L (25-60) 02/21/19 20:04 64 units/L (55-170) 02/22/19 03:42 CK-MB (CK-2) 3.7 ng/mL (0.0-4.0) 02/22/19 03:42 CK-MB (CK-2) Rel Index 5.7 (0-4) H 02/22/19 03:42 0.193 ng/mL (0.00-0.029) H* 02/22/19 03:42 6.7 g/dL (6.3-8.2) 02/21/19 18:30 2.4 g/dL (3.9-5) L 02/21/19 18:30 0.6 % 02/21/19 18:30 Triglycerides 51 mg/dL (2-149) 02/21/19 18:30 Cholesterol 82 mg/dL (50-199) 02/21/19 18:30 36 mg/dL (50-130) L 02/21/19 18:30 40 mg/dL (40-59) 02/21/19 18:30 2.05 % 02/21/19 18:30 TSH 2.760 mlU/mL (0.270-4.200) 02/21/19 20:04 PTH Intact 267.6 pg/mL (15-65) H 03/02/19 05:15 Salicylates < 0.3 mg/dL (2.8-20.0) L 02/21/19 20:04 Acetaminophen < 5.0 ug/mL (10.0-30.0) L 02/21/19 20:04 Hepatitis A IgM Ab Non-reactive (NonReactive) 02/23/19 11:20 Hep Bs Antigen Non-reactive (Negative) 02/23/19 11:20 Hep B Core IgM Ab Non-reactive (NonReactive) 02/23/19 11:20 Non-reactive (NonReactive) 02/23/19 11:20 Active Medications - Current Medications Current Medications: Generic Name Dose Route Start Last Admin Trade Name Freq PRN Reason Stop Dose Admin Acetaminophen 650 mg 02/21/19 22:19 Tylenol PO Q4H PRN Pain MILD(1-3)/Fever >100.5/HILL Albuterol/Ipratropium 1 ampul 02/24/19 20:00 03/03/19 14:14 Duoneb *Not For Prn Use* IH 1 ampul TIDRT SANCHEZ Administration Lipase/Protease/Amylase 1 each 02/23/19 15:09 Pancrejewel Barrientos 10,500 Unit FEEDTUBE PRN PRN For Clogged Feeding Tube Dextrose 50 ml 02/21/19 22:22 02/23/19 14:51 D50w (25gm) Syringe IV 50 ml PRN PRN Administration Hypoglycemia Famotidine 20 mg 02/23/19 10:00 03/02/19 09:55 Pepcid PO 20 mg DAILY SANCHEZ Administration Hydrophilic Ointment 1 applic 02/21/19 18:24 Vaseline Lip Therapy TP Q2HR PRN Dry Lips Sodium Chloride 100 mls @ 999 mls/hr 02/26/19 09:00 Nacl 0.9% IV UMA PRN Hypotension Insulin Human Regular 0 units 02/26/19 12:00 03/03/19 12:37 Humulin R SUB-Q Not Given Q6HR [facility] Protocol Metoprolol Tartrate 2.5 mg 02/28/19 12:06 03/01/19 10:32 Lopressor IV 2.5 mg Q4HR PRN Administration Tachycardia Metoprolol Tartrate 25 mg 03/02/19 14:00 03/03/19 08:00 Lopressor PO Not Given TID [facility] Multi-Ingred Cream/Lotion/Oil/Oint 1 applic 02/21/19 18:24 Artificial Tears Ophth Oint OU Q4HR PRN Dry Eye(s) Ondansetron HCl 4 mg 02/21/19 22:19 Zofran IV Q8H PRN Nausea And Vomiting Risperidone 1 mg 02/25/19 13:00 03/02/19 09:55 Risperdal PO 1 mg DAILY SANCHEZ Administration Sertraline HCl 100 mg 02/25/19 13:00 03/02/19 09:54 Zoloft PO 100 mg DAILY SANCHEZ Administration Simple Syrup 15 ml 02/23/19 15:09 Simple Syrup FEEDTUBE PRN PRN Hypoglycemia Simple Syrup 30 ml 02/23/19 15:09 Simple Syrup FEEDTUBE PRN PRN Hypoglycemia Sodium Bicarbonate 325 mg 02/23/19 15:09 Sodium Bicarbonate FEEDTUBE PRN PRN For Clogged Feeding Tube Sodium Chloride 10 ml 02/22/19 10:00 03/02/19 22:00 Sodium Chloride Flush Syringe 10 Ml IV 10 ml BID SANCHEZ Administration Sodium Chloride 10 ml 02/21/19 22:19 02/24/19 22:00 Sodium Chloride Flush Syringe 10 Ml IV 10 ml PRN PRN Administration LINE FLUSH Nutrition/Malnutrition Assess - Dietary Evaluation Nutrition/Malnutrition Findings: Nutrition Notes Start: 02/22/19 12:51 Freq: Status: Active Protocol: Document 02/26/19 13:54 RM (Rec: 02/26/19 13:59 RM [id number]) Nutrition Notes Initial or Follow up Reassessment Current Diagnosis Diabetes,Hypertension Other Pertinent Diagnosis Sacral PU, ESRD on HD (T/Thurs /Sat), Schizophrenia, Blind in L eye Current Diet Vital 1.2 at 70 ml/hr Labs/Tests K 3.9 Pertinent Medications Reviewed Height 5 ft 10 in Weight 88.7 kg [place] Body Weight (kg) 75.45 BMI 28.0 Subjective/Other Information Observed Vital 1.2 infusing at goal rate. Per nurse pt is tolerating TF and receiving Abhilash. Percent of energy/protein needs met: 100%/100% Burn Absent Trauma Absent #2 Nutrition Diagnosis Increased nutrient needs ( specify in comment below) Diagnosis Progress(for reassessment Continues documentation) #1 Nutrition Diagnosis Inadequate oral intake Diagnosis Progress(for reassessment Continues documentation) Is patient on ventilator? Yes Is Patient Ambulatory and/or Out of Bed No REE-([place]-confined to bed) Calculation Used for Recommendations Kcal/kg Additional Notes Protein Needs: 106-177g (1.2- 2g/kg) Fluid Needs: 1 ml/kcal Nutrition Intervention Nutrition Support: Vital 1.2 at 70 ml/hr Water flush of 100 mls q 4 hrs Kcal 2,016 Protein (gm) 126 Fluid (mL) 1,362 Add Supplement/Snack (indicate name/kcal Abhilash BID /protein ) Provides kCal: 190 Provides Protein (gm) 5 Goal #1 TF tolerance Goal #2 Continue to meet at least 80% of calorie and protein needs via TF Anticipated Discharge Needs: Unable to determine at this time Follow-Up By: 03/05/19 Additional Comments Follow for TF tolerance
--- NOTE | 2019-03-03 16:34 | Procedure Note ---
Date of procedure: 03/03/19 Pre-op diagnosis: VDRF Post-op diagnosis: same Procedure: Fiberoptic bronchoscopy Findings: Time out performed. After sedation was administered by anesthesia, fiberoptic bronchoscope was passed through the endotracheal tube via adaptor. The ETT was at 24cm at the lip and approximately 3 cm above the sade. The airway was edematous without secretions. The balloon was deflated and tube pulled back to [address] Briggs performed tracheostomy. The needle was seen entering the trachea and wire passed towards sade under direct bronchoscopic visualization. The trachea was serially dilated and tracheostomy tube and balloon seen to enter trachea. Bronchoscope was then withdrawn and passed through tracheostomy tube. There was no bleeding and tip of tube was approximately 3 cm above sade. Bronchscope was withdrawn and tracheostomy connected to vent. Inspiratory and expiratory volumes were satisfactory. Patient tolerated the procedure well. Please see Dr. Briggs's procedure note for details about tracheostomy insertion. Anesthesia: GETA Surgeon: ZENY HINES Estimated blood loss: none Pathology: none Condition: stable Disposition: no change
--- NOTE | 2019-03-03 16:59 | Procedure Note ---
Date of procedure: 03/03/19 Pre-op diagnosis: respiratory failure Post-op diagnosis: same Procedure: Consent was on the chart. Time out was performed. Sterile prep and drape was done. Anesthesia was managed by anesthesia provider. Lidocaine was used to anesthetize an area about two finger breadths above the sternal notch. Transverse incision was made. Blunt dissection was carried down to trachea. Under bronchoscopic guidance, a finder needle was used to enter the trachea. Thereafter, the introducer needle was inserted. Multiple attempts were required as we had difficulty pulling back ETT far enough without extubating the patient. The anesthesia provider has to replace the tube twice. The patient was stable during the entire time. It was approximately at the second tracheal ring. Tract was dilated and tracheostomy tube was easily inserted. Balloon was inflated. Position was rechecked via bronchoscopy through the tracheostomy tube. We were at least 3 cm above the sade. We had good inspiratory and expiratory volumes. CXR shows the tube to be in good position with some atelectasis of RUL. There were no apparent complications at the end of the case. As there was minor oozing from the multiple needle sticks, I placed Surgicel around the tube as a precaution. There was no evidence of active bleeding from an artery or a vein. Anesthesia: MAC Surgeon: DELILAH TEIXEIRA ([facility] - [facility]) Estimated blood loss: minimal Pathology: none Condition: stable Disposition: ICU
--- NOTE | 2019-03-03 17:20 | XRay Report ---
CHEST 1 VIEW INDICATION / CLINICAL INFORMATION: trach. COMPARISON: 03/02/2019 FINDINGS: SUPPORT DEVICES: Central venous catheters appear unchanged. New tracheostomy tube is noted.. HEART / MEDIASTINUM: Unchanged LUNGS / PLEURA: There is volume loss in the right upper lobe airspace consolidation. No definite pneu mothorax. ADDITIONAL FINDINGS: No significant additional findings. IMPRESSION: 1. There is right upper lobe atelectasis. Signer Name: Fran Weber MD Signed: 03/03/2019 5:16 PM Workstation Name: [id number]
[2019-03-03] MEDS: DEXTROSE 50% IN WATER (25GM) 50 ML SYRINGE IV PRN (17:37)
[2019-03-04] MEDS: INSULIN REGULAR, HUMAN 100 UNITS/1 ML SUB-Q SCH ×5 (06:00→18:00)
[2019-03-04 06:24] LABS: Basophils # (Auto) 0.1 K/mm3 (0.0-0.1); Basophils % (Auto) 0.8 % (0.0-1.8); Eosinophils # (Auto) 0.3 K/mm3 (0.0-0.4); Eosinophils % (Auto) 4.6 % (0.0-4.3); Hematocrit 22.2 % (35.5-45.6); Hemoglobin 7.2 gm/dl (11.8-15.2); Lymphocytes # (Auto) 0.7 K/mm3 (1.2-5.4); Lymphocytes % (Auto) 10.5 % (13.4-35.0); Mean Corpuscular HGB Conc 33 % (32-34); Mean Corpuscular Volume 84 fl (84-94); Monocytes # (Auto) 0.5 K/mm3 (0.0-0.8); Monocytes % (Auto) 7.2 % (0.0-7.3); Platelet Count 233 K/mm3 (140-440); Red Blood Count 2.63 M/mm3 (3.65-5.03)
[2019-03-04 06:25] LABS: Red Cell Distribution Width 20.2 % (13.2-15.2)
[2019-03-04 06:47] LABS: Calcium 9.8 mg/dL (8.4-10.2)
[2019-03-04] MEDS: IPRATROPIUM/ALBUTEROL SULFATE 3 ML AMPUL.NEB IH SCH ×3 (07:44→19:53)
[2019-03-04] MEDS: SERTRALINE 100 MG TAB PO SCH (09:02)
[2019-03-04] MEDS: FAMOTIDINE 20 MG TAB PO SCH (09:02)
[2019-03-04] MEDS: risperiDONE 1 MG TAB PO SCH (09:02)
[2019-03-04] MEDS: METOPROLOL TARTRATE 25 MG TAB PO SCH ×3 (09:03→20:51)
--- NOTE | 2019-03-04 09:04 | Progress Note ---
Assessment and Plan - Patient Problems (1) Respiratory failure Current Visit: Yes Status: Acute Qualifiers: Chronicity: unspecified Respiratory failure complication: unspecified whether with hypoxia or hypercapnia Qualified Code(s): J96.90 - Respiratory failure, unspecified, unspecified whether with hypoxia or hypercapnia Plan to address problem: s/p Perc Trach. Pt stable. No sign of any complications. Does have mild atelectasis in the upper lobe on yesterday's chest x-ray. Would recommend aggressive pulmonary toilet. Okay for transfer to LTAC from my perspective. Please call with questions. Time=10min Subjective Date of service: 03/04/19 Patient Reports: Positive: other (No events overnight. No bleeding from the trach.) Objective Vital Signs - 12hr 03/03/19 03/03/19 03/04/19 22:00 23:00 00:00 Temperature 99.4 F Pulse Rate 109 H 83 90 Pulse Rate [ Anterior Bilateral Throughout] Pulse Rate [ Throughout] Respiratory Rate [Anterior Bilateral Throughout] Respiratory Rate [ Throughout] Blood Pressure 127/77 122/73 111/75 O2 Sat by Pulse 99 99 100 Oximetry O2 Sat by Pulse Oximetry [ Assessment] 03/04/19 03/04/19 03/04/19 00:49 01:00 01:43 Temperature Pulse Rate 88 111 H Pulse Rate [ Anterior Bilateral Throughout] Pulse Rate [ Throughout] Respiratory Rate [Anterior Bilateral Throughout] Respiratory Rate [ Throughout] Blood Pressure 116/78 126/80 O2 Sat by Pulse 100 96 Oximetry O2 Sat by Pulse 93 Oximetry [ Assessment] 03/04/19 03/04/19 03/04/19 02:00 03:00 04:00 Temperature 99.0 F Pulse Rate 95 H 84 85 Pulse Rate [ Anterior Bilateral Throughout] Pulse Rate [ Throughout] Respiratory Rate [Anterior Bilateral Throughout] Respiratory Rate [ Throughout] Blood Pressure 117/72 119/71 121/75 O2 Sat by Pulse 97 97 97 Oximetry O2 Sat by Pulse Oximetry [ Assessment] 03/04/19 03/04/19 03/04/19 05:00 05:17 06:00 Temperature Pulse Rate 84 112 H 84 Pulse Rate [ Anterior Bilateral Throughout] Pulse Rate [ Throughout] Respiratory Rate [Anterior Bilateral Throughout] Respiratory Rate [ Throughout] Blood Pressure 114/64 115/62 116/63 O2 Sat by Pulse 92 92 93 Oximetry O2 Sat by Pulse Oximetry [ Assessment] 03/04/19 03/04/19 03/04/19 07:00 07:33 07:46 Temperature Pulse Rate 112 H 85 Pulse Rate [ 84 Anterior Bilateral Throughout] Pulse Rate [ 112 H Throughout] Respiratory 12 Rate [Anterior Bilateral Throughout] Respiratory 12 Rate [ Throughout] Blood Pressure 128/62 105/62 O2 Sat by Pulse 94 98 Oximetry O2 Sat by Pulse Oximetry [ Assessment] 03/04/19 03/04/19 07:53 08:00 Temperature 97.9 F Pulse Rate 85 84 Pulse Rate [ Anterior Bilateral Throughout] Pulse Rate [ Throughout] Respiratory Rate [Anterior Bilateral Throughout] Respiratory Rate [ Throughout] Blood Pressure 105/62 126/69 O2 Sat by Pulse 98 100 Oximetry O2 Sat by Pulse Oximetry [ Assessment] - General physical appearance no distress, no pain - ENT other (Trach in place. No drainage or bleeding. Visible part of Surgicel is completely dry.) - Neck other (No obvious hematoma seen) - Respiratory other (coarse, but equal BS bilaterally) - Labs 03/04/19 05:40 03/04/19 05:40 Diabetes panel 03/03/19 03/04/19 Range/Units 13:30 05:40 Sodium 137 142 (137-145) mmol/L Potassium 4.2 4.4 (3.6-5.0) mmol/L Chloride 97.3 L 101.2 (98-107) mmol/L Carbon Dioxide 29 30 (22-30) mmol/L BUN 26 H 34 H (9-20) mg/dL Creatinine 2.2 H 2.7 H (0.8-1.5) mg/dL Glucose 73 L 114 H (75-100) mg/dL Calcium 9.5 9.8 (8.4-10.2) mg/dL Calcium panel 03/03/19 03/04/19 Range/Units 13:30 05:40 Calcium 9.5 9.8 (8.4-10.2) mg/dL Pituitary panel 03/03/19 03/04/19 Range/Units 13:30 05:40 Sodium 137 142 (137-145) mmol/L Potassium 4.2 4.4 (3.6-5.0) mmol/L Chloride 97.3 L 101.2 (98-107) mmol/L Carbon Dioxide 29 30 (22-30) mmol/L BUN 26 H 34 H (9-20) mg/dL Creatinine 2.2 H 2.7 H (0.8-1.5) mg/dL Glucose 73 L 114 H (75-100) mg/dL Calcium 9.5 9.8 (8.4-10.2) mg/dL Adrenal panel 03/03/19 03/04/19 Range/Units 13:30 05:40 Sodium 137 142 (137-145) mmol/L Potassium 4.2 4.4 (3.6-5.0) mmol/L Chloride 97.3 L 101.2 (98-107) mmol/L Carbon Dioxide 29 30 (22-30) mmol/L BUN 26 H 34 H (9-20) mg/dL Creatinine 2.2 H 2.7 H (0.8-1.5) mg/dL Glucose 73 L 114 H (75-100) mg/dL Calcium 9.5 9.8 (8.4-10.2) mg/dL
--- NOTE | 2019-03-04 13:27 | Progress Note ---
Assessment and Plan 63 y/o male with multiple medical issues admitted with altered mental status, acute respiratory failure requiring mechanical ventilation 1. Trached. Continue daily PSV trials 2. HD per renal 3. Suggest transfer to [facility] for further weaning. Patient is stable and ready for discharge to there now. 4. Continue oral TID BB and continue PRN IV lopressor. 5. Continue to monitor in ICU given vent requirements. CCT 31 minutes. Subjective Date of service: 03/04/19 Principal diagnosis: respiratory failure Interval history: No acute events. Successful trach and peg on yesterday. Stable. Objective Vital Signs - 12hr 03/04/19 03/04/19 03/04/19 01:43 02:00 03:00 Temperature Pulse Rate 95 H 84 Pulse Rate [ Anterior Bilateral Throughout] Pulse Rate [ Throughout] Respiratory Rate Respiratory Rate [Anterior Bilateral Throughout] Respiratory Rate [ Throughout] Blood Pressure 117/72 119/71 O2 Sat by Pulse 97 97 Oximetry O2 Sat by Pulse Oximetry [ Anterior Bilateral Throughout] O2 Sat by Pulse 93 Oximetry [ Assessment] 03/04/19 03/04/19 03/04/19 04:00 05:00 05:17 Temperature 99.0 F Pulse Rate 85 84 112 H Pulse Rate [ Anterior Bilateral Throughout] Pulse Rate [ Throughout] Respiratory Rate Respiratory Rate [Anterior Bilateral Throughout] Respiratory Rate [ Throughout] Blood Pressure 121/75 114/64 115/62 O2 Sat by Pulse 97 92 92 Oximetry O2 Sat by Pulse Oximetry [ Anterior Bilateral Throughout] O2 Sat by Pulse Oximetry [ Assessment] 03/04/19 03/04/19 03/04/19 06:00 07:00 07:33 Temperature Pulse Rate 84 112 H 85 Pulse Rate [ Anterior Bilateral Throughout] Pulse Rate [ Throughout] Respiratory Rate Respiratory Rate [Anterior Bilateral Throughout] Respiratory Rate [ Throughout] Blood Pressure 116/63 128/62 105/62 O2 Sat by Pulse 93 94 98 Oximetry O2 Sat by Pulse Oximetry [ Anterior Bilateral Throughout] O2 Sat by Pulse Oximetry [ Assessment] 03/04/19 03/04/19 03/04/19 07:46 07:53 08:00 Temperature 97.9 F Pulse Rate 85 84 Pulse Rate [ 84 Anterior Bilateral Throughout] Pulse Rate [ 112 H Throughout] Respiratory Rate Respiratory 12 Rate [Anterior Bilateral Throughout] Respiratory 12 Rate [ Throughout] Blood Pressure 105/62 126/69 O2 Sat by Pulse 98 100 Oximetry O2 Sat by Pulse Oximetry [ Anterior Bilateral Throughout] O2 Sat by Pulse Oximetry [ Assessment] 03/04/19 03/04/19 03/04/19 08:30 08:40 08:45 Temperature 97.9 F Pulse Rate 84 84 101 H Pulse Rate [ Anterior Bilateral Throughout] Pulse Rate [ Throughout] Respiratory 16 Rate Respiratory Rate [Anterior Bilateral Throughout] Respiratory Rate [ Throughout] Blood Pressure 114/64 114/64 119/63 O2 Sat by Pulse Oximetry O2 Sat by Pulse 98 Oximetry [ Anterior Bilateral Throughout] O2 Sat by Pulse Oximetry [ Assessment] 03/04/19 03/04/19 03/04/19 09:00 09:03 09:15 Temperature Pulse Rate 84 85 84 Pulse Rate [ Anterior Bilateral Throughout] Pulse Rate [ Throughout] Respiratory Rate Respiratory Rate [Anterior Bilateral Throughout] Respiratory Rate [ Throughout] Blood Pressure 114/64 114/64 122/65 O2 Sat by Pulse 95 Oximetry O2 Sat by Pulse Oximetry [ Anterior Bilateral Throughout] O2 Sat by Pulse Oximetry [ Assessment] 03/04/19 03/04/19 03/04/19 09:29 09:45 10:00 Temperature Pulse Rate 84 84 84 Pulse Rate [ Anterior Bilateral Throughout] Pulse Rate [ Throughout] Respiratory Rate Respiratory Rate [Anterior Bilateral Throughout] Respiratory Rate [ Throughout] Blood Pressure 126/67 125/70 109/63 O2 Sat by Pulse 98 Oximetry O2 Sat by Pulse Oximetry [ Anterior Bilateral Throughout] O2 Sat by Pulse Oximetry [ Assessment] 03/04/19 03/04/19 03/04/19 10:15 10:30 10:45 Temperature Pulse Rate 83 83 86 Pulse Rate [ Anterior Bilateral Throughout] Pulse Rate [ Throughout] Respiratory Rate Respiratory Rate [Anterior Bilateral Throughout] Respiratory Rate [ Throughout] Blood Pressure 122/76 132/73 136/65 O2 Sat by Pulse Oximetry O2 Sat by Pulse Oximetry [ Anterior Bilateral Throughout] O2 Sat by Pulse Oximetry [ Assessment] 03/04/19 03/04/19 03/04/19 11:00 11:01 11:15 Temperature Pulse Rate 86 83 84 Pulse Rate [ Anterior Bilateral Throughout] Pulse Rate [ Throughout] Respiratory Rate Respiratory Rate [Anterior Bilateral Throughout] Respiratory Rate [ Throughout] Blood Pressure 135/75 135/75 136/72 O2 Sat by Pulse 97 Oximetry O2 Sat by Pulse Oximetry [ Anterior Bilateral Throughout] O2 Sat by Pulse Oximetry [ Assessment] 03/04/19 03/04/1919 11:29 11:45 12:00 Temperature 98.0 F Pulse Rate 84 84 84 Pulse Rate [ Anterior Bilateral Throughout] Pulse Rate [ Throughout] Respiratory Rate Respiratory Rate [Anterior Bilateral Throughout] Respiratory Rate [ Throughout] Blood Pressure 145/79 134/74 130/73 O2 Sat by Pulse 99 Oximetry O2 Sat by Pulse Oximetry [ Anterior Bilateral Throughout] O2 Sat by Pulse Oximetry [ Assessment] 03/04/19 03/04/19 03/04/19 12:10 12:29 13:21 Temperature 98.0 F Pulse Rate 83 84 84 Pulse Rate [ Anterior Bilateral Throughout] Pulse Rate [ Throughout] Respiratory 16 Rate Respiratory Rate [Anterior Bilateral Throughout] Respiratory Rate [ Throughout] Blood Pressure 133/71 130/65 O2 Sat by Pulse Oximetry O2 Sat by Pulse 98 Oximetry [ Anterior Bilateral Throughout] O2 Sat by Pulse Oximetry [ Assessment] Constitutional: alert, other (critically ill on vent) Eyes: non-icteric Effort: normal Ascultation: Bilateral: diminished breath sounds, other (coarse BS bilaterally) Percussion: Bilateral: not dull Cardiovascular: regular rate and rhythm (no mrg) Gastrointestinal: normoactive bowel sounds, soft, non-tender, non-distended Extremities: no edema, pink and warm Neurologic: other (somnolent, minimally arousable, squeezes with R and L hand and wiggles toes on command) Psychiatric: other (unable to assess) CBC and BMP: 03/04/19 05:40 03/04/19 05:40 ABG, PT/INR, D-dimer: ABG POC ABG pH 7.483 (7.35-7.45) H 02/27/19 04:35 POC ABG pCO2 37.5 (35-45) 02/27/19 04:35 POC ABG pO2 61 (80-105) L 02/27/19 04:35 POC ABG HCO3 28.1 (22-26 mml/L) 02/27/19 04:35 POC ABG Total CO2 29 (23-27mmol/L) 02/27/19 04:35 POC ABG O2 Sat 93 02/27/19 04:35 PT/INR, D-dimer PT 16.3 Sec. (12.2-14.9) H 03/01/19 09:39 INR 1.35 (0.87-1.13) H 03/01/19 09:39 2987.82 ng/mlDDU (0-234) H 02/22/19 05:54 Abnormal lab findings: Abnormal Labs 02/21/19 02/21/19 02/21/19 18:30 18:30 18:30 RBC 3.26 L Hgb 8.8 L Hct 29.0 L MCH 27 L MCHC 30 L RDW 19.1 H Lymph % (Auto) 6.1 L Gonzales % (Auto) Eos % (Auto) Lymph # 0.4 L Eos # Seg Neutrophils % 86.2 H PT INR D-Dimer POC ABG pH POC ABG pCO2 POC ABG pO2 Sodium 133 L Potassium 3.3 L Chloride 93.1 L Carbon Dioxide 33 H BUN Creatinine Glucose 161 H POC Glucose Phosphorus Alkaline Phosphatase 136 H Total Creatine Kinase 37 L CK-MB (CK-2) Rel Index Troponin T 0.192 H* Albumin 2.4 L LDL Cholesterol Direct 36 L PTH Intact Salicylates Acetaminophen 02/21/19 02/21/19 02/21/19 18:42 20:04 20:04 RBC Hgb Hct MCH MCHC RDW Lymph % (Auto) Gonzales % (Auto) Eos % (Auto) Lymph # Eos # Seg Neutrophils % PT INR D-Dimer POC ABG pH POC ABG pCO2 56.7 H POC ABG pO2 291 H Sodium Potassium Chloride Carbon Dioxide BUN Creatinine Glucose POC Glucose Phosphorus Alkaline Phosphatase Total Creatine Kinase CK-MB (CK-2) Rel Index Troponin T Albumin LDL Cholesterol Direct PTH Intact Salicylates < 0.3 L Acetaminophen < 5.0 L 02/21/19 02/22/19 02/22/19 22:35 03:42 03:42 RBC 3.20 L Hgb 8.8 L Hct 27.6 L MCH MCHC RDW 18.9 H Lymph % (Auto) 7.4 L Gonzales % (Auto) Eos % (Auto) Lymph # 0.7 L Eos # Seg Neutrophils % 84.7 H PT INR D-Dimer POC ABG pH POC ABG pCO2 POC ABG pO2 Sodium 134 L Potassium 2.6 L* D Chloride Carbon Dioxide BUN Creatinine Glucose POC Glucose Phosphorus Alkaline Phosphatase Total Creatine Kinase CK-MB (CK-2) Rel Index 5.2 H Troponin T 0.202 H* Albumin LDL Cholesterol Direct PTH Intact Salicylates Acetaminophen 02/22/19 02/22/19 02/22/19 03:42 05:54 09:04 RBC Hgb Hct MCH MCHC RDW Lymph % (Auto) Gonzales % (Auto) Eos % (Auto) Lymph # Eos # Seg Neutrophils % PT INR D-Dimer 2987.82 H POC ABG pH 7.451 H POC ABG pCO2 POC ABG pO2 Sodium Potassium Chloride Carbon Dioxide BUN Creatinine Glucose POC Glucose Phosphorus Alkaline Phosphatase Total Creatine Kinase CK-MB (CK-2) Rel Index 5.7 H Troponin T 0.193 H* Albumin LDL Cholesterol Direct PTH Intact Salicylates Acetaminophen 02/22/19 02/22/19 02/23/19 10:36 23:56 00:52 RBC Hgb Hct MCH MCHC RDW Lymph % (Auto) Gonzales % (Auto) Eos % (Auto) Lymph # Eos # Seg Neutrophils % PT INR D-Dimer POC ABG pH POC ABG pCO2 POC ABG pO2 Sodium Potassium 3.1 L Chloride Carbon Dioxide BUN Creatinine Glucose POC Glucose 58 L 111 H Phosphorus Alkaline Phosphatase Total Creatine Kinase CK-MB (CK-2) Rel Index Troponin T Albumin LDL Cholesterol Direct PTH Intact Salicylates Acetaminophen 02/23/19 02/23/19 02/23/19 05:00 06:35 14:26 RBC Hgb Hct MCH MCHC RDW Lymph % (Auto) Gonzales % (Auto) Eos % (Auto) Lymph # Eos # Seg Neutrophils % PT INR D-Dimer POC ABG pH POC ABG pCO2 POC ABG pO2 Sodium 135 L Potassium 3.1 L Chloride Carbon Dioxide BUN 21 H Creatinine 2.0 H Glucose 57 L POC Glucose 64 L 62 L Phosphorus Alkaline Phosphatase Total Creatine Kinase CK-MB (CK-2) Rel Index Troponin T Albumin LDL Cholesterol Direct PTH Intact Salicylates Acetaminophen 02/24/19 02/24/19 02/24/19 02:11 04:12 04:55 RBC 2.84 L Hgb 7.8 L Hct 24.5 L MCH MCHC RDW 19.5 H Lymph % (Auto) Gonzales % (Auto) Eos % (Auto) Lymph # Eos # Seg Neutrophils % PT INR D-Dimer POC ABG pH 7.511 H POC ABG pCO2 33.9 L POC ABG pO2 62 L Sodium Potassium Chloride Carbon Dioxide BUN Creatinine Glucose POC Glucose 69 L Phosphorus Alkaline Phosphatase Total Creatine Kinase CK-MB (CK-2) Rel Index Troponin T Albumin LDL Cholesterol Direct PTH Intact Salicylates Acetaminophen 02/24/19 02/24/19 02/25/19 04:55 05:41 04:45 RBC Hgb Hct MCH MCHC RDW Lymph % (Auto) Gonzales % (Auto) Eos % (Auto) Lymph # Eos # Seg Neutrophils % PT INR D-Dimer POC ABG pH 7.466 H POC ABG pCO2 POC ABG pO2 75 L Sodium Potassium Chloride Carbon Dioxide BUN Creatinine 1.8 H Glucose 73 L POC Glucose 127 H Phosphorus Alkaline Phosphatase Total Creatine Kinase CK-MB (CK-2) Rel Index Troponin T Albumin LDL Cholesterol Direct PTH Intact Salicylates Acetaminophen 02/25/19 02/25/19 02/26/19 16:34 21:33 03:45 RBC 2.96 L Hgb 8.0 L Hct 25.8 L MCH 27 L MCHC 31 L RDW 20.0 H Lymph % (Auto) Gonzales % (Auto) Eos % (Auto) Lymph # Eos # Seg Neutrophils % PT INR D-Dimer POC ABG pH POC ABG pCO2 POC ABG pO2 Sodium Potassium Chloride Carbon Dioxide BUN Creatinine Glucose POC Glucose 141 H 106 H Phosphorus Alkaline Phosphatase Total Creatine Kinase CK-MB (CK-2) Rel Index Troponin T Albumin LDL Cholesterol Direct PTH Intact Salicylates Acetaminophen 02/26/19 02/26/19 02/26/19 03:45 04:13 07:53 RBC Hgb Hct MCH MCHC RDW Lymph % (Auto) Gonzales % (Auto) Eos % (Auto) Lymph # Eos # Seg Neutrophils % PT INR D-Dimer POC ABG pH 7.470 H POC ABG pCO2 POC ABG pO2 Sodium Potassium Chloride Carbon Dioxide BUN Creatinine 1.8 H Glucose POC Glucose 110 H Phosphorus Alkaline Phosphatase Total Creatine Kinase CK-MB (CK-2) Rel Index Troponin T Albumin LDL Cholesterol Direct PTH Intact Salicylates Acetaminophen 02/26/19 02/26/19 02/27/19 11:56 17:43 00:12 RBC Hgb Hct MCH MCHC RDW Lymph % (Auto) Gonzales % (Auto) Eos % (Auto) Lymph # Eos # Seg Neutrophils % PT INR D-Dimer POC ABG pH POC ABG pCO2 POC ABG pO2 Sodium Potassium Chloride Carbon Dioxide BUN Creatinine Glucose POC Glucose 112 H 127 H 127 H Phosphorus Alkaline Phosphatase Total Creatine Kinase CK-MB (CK-2) Rel Index Troponin T Albumin LDL Cholesterol Direct PTH Intact Salicylates Acetaminophen 02/27/19 02/27/19 02/27/19 04:35 13:15 18:02 RBC Hgb Hct MCH MCHC RDW Lymph % (Auto) Gonzales % (Auto) Eos % (Auto) Lymph # Eos # Seg Neutrophils % PT INR D-Dimer POC ABG pH 7.483 H POC ABG pCO2 POC ABG pO2 61 L Sodium Potassium Chloride Carbon Dioxide BUN Creatinine Glucose POC Glucose 143 H 106 H Phosphorus Alkaline Phosphatase Total Creatine Kinase CK-MB (CK-2) Rel Index Troponin T Albumin LDL Cholesterol Direct PTH Intact Salicylates Acetaminophen 02/28/19 02/28/19 02/28/19 05:50 11:59 17:52 RBC Hgb Hct MCH MCHC RDW Lymph % (Auto) Gonzales % (Auto) Eos % (Auto) Lymph # Eos # Seg Neutrophils % PT INR D-Dimer POC ABG pH POC ABG pCO2 POC ABG pO2 Sodium Potassium Chloride Carbon Dioxide BUN Creatinine Glucose POC Glucose 134 H 128 H 142 H Phosphorus Alkaline Phosphatase Total Creatine Kinase CK-MB (CK-2) Rel Index Troponin T Albumin LDL Cholesterol Direct PTH Intact Salicylates Acetaminophen 02/28/19 03/01/19 03/01/19 23:13 05:40 09:39 RBC Hgb Hct MCH MCHC RDW Lymph % (Auto) Gonzales % (Auto) Eos % (Auto) Lymph # Eos # Seg Neutrophils % PT 16.3 H INR 1.35 H D-Dimer POC ABG pH POC ABG pCO2 POC ABG pO2 Sodium Potassium Chloride Carbon Dioxide BUN Creatinine Glucose POC Glucose 112 H 111 H Phosphorus Alkaline Phosphatase Total Creatine Kinase CK-MB (CK-2) Rel Index Troponin T Albumin LDL Cholesterol Direct PTH Intact Salicylates Acetaminophen 03/01/19 03/01/19 03/01/19 11:56 13:54 17:59 RBC Hgb Hct MCH MCHC RDW Lymph % (Auto) Gonzales % (Auto) Eos % (Auto) Lymph # Eos # Seg Neutrophils % PT INR D-Dimer POC ABG pH POC ABG pCO2 POC ABG pO2 Sodium Potassium Chloride Carbon Dioxide BUN 33 H Creatinine 2.8 H D Glucose 176 H POC Glucose 199 H 147 H Phosphorus Alkaline Phosphatase Total Creatine Kinase CK-MB (CK-2) Rel Index Troponin T Albumin LDL Cholesterol Direct PTH Intact Salicylates Acetaminophen 03/02/19 03/02/19 03/02/19 05:15 05:15 05:15 RBC 2.73 L Hgb 7.4 L Hct 23.0 L MCH 27 L MCHC RDW 19.9 H Lymph % (Auto) Gonzales % (Auto) 7.9 H Eos % (Auto) 7.6 H Lymph # 1.0 L Eos # 0.5 H Seg Neutrophils % PT INR D-Dimer POC ABG pH POC ABG pCO2 POC ABG pO2 Sodium Potassium Chloride Carbon Dioxide BUN 43 H Creatinine 3.2 H Glucose POC Glucose Phosphorus 2.30 L Alkaline Phosphatase Total Creatine Kinase CK-MB (CK-2) Rel Index Troponin T Albumin LDL Cholesterol Direct PTH Intact 267.6 H Salicylates Acetaminophen 03/02/19 03/02/19 03/03/19 12:32 18:20 13:30 RBC Hgb Hct MCH MCHC RDW Lymph % (Auto) Gonzales % (Auto) Eos % (Auto) Lymph # Eos # Seg Neutrophils % PT INR D-Dimer POC ABG pH POC ABG pCO2 POC ABG pO2 Sodium Potassium Chloride 97.3 L Carbon Dioxide BUN 26 H Creatinine 2.2 H Glucose 73 L POC Glucose 111 H 156 H Phosphorus Alkaline Phosphatase Total Creatine Kinase CK-MB (CK-2) Rel Index Troponin T Albumin LDL Cholesterol Direct PTH Intact Salicylates Acetaminophen 03/04/19 03/04/19 03/04/19 00:02 05:37 05:40 RBC 2.63 L Hgb 7.2 L Hct 22.2 L MCH MCHC RDW 20.2 H Lymph % (Auto) 10.5 L Gonzales % (Auto) Eos % (Auto) 4.6 H Lymph # 0.7 L Eos # Seg Neutrophils % 76.9 H PT INR D-Dimer POC ABG pH POC ABG pCO2 POC ABG pO2 Sodium Potassium Chloride Carbon Dioxide BUN Creatinine Glucose POC Glucose 136 H 123 H Phosphorus Alkaline Phosphatase Total Creatine Kinase CK-MB (CK-2) Rel Index Troponin T Albumin LDL Cholesterol Direct PTH Intact Salicylates Acetaminophen 03/04/19 03/04/19 05:40 11:39 RBC Hgb Hct MCH MCHC RDW Lymph % (Auto) Gonzales % (Auto) Eos % (Auto) Lymph # Eos # Seg Neutrophils % PT INR D-Dimer POC ABG pH POC ABG pCO2 POC ABG pO2 Sodium Potassium Chloride Carbon Dioxide BUN 34 H Creatinine 2.7 H Glucose 114 H POC Glucose 175 H Phosphorus Alkaline Phosphatase Total Creatine Kinase CK-MB (CK-2) Rel Index Troponin T Albumin LDL Cholesterol Direct PTH Intact Salicylates Acetaminophen
--- NOTE | 2019-03-04 15:19 | Progress Note ---
Assessment and Plan Assessment: * End stage renal disease (outpatient TTS schedule) * Acute hypoxic respiratory failure on mechanical ventilation * Atrial fibrillation * History of CVA * Anemia secondary to ESRD * Secondary hyperparathyroidism Plan * Continue HD MWF schedule for now * UF as tolerated * Vascular surgery notes reviewed - permcath removal prior to d/c * Empiric abx per ID/primary team * Nutrition per primary team * Dose medications for renal function * Epogen TID prn Subjective Date of service: 03/04/19 Principal diagnosis: respiratory failure Interval history: Chart reviewed. No acute events overnight. Objective - Vital Signs Vital signs: Vital Signs - 12hr 03/04/19 03/04/19 03/04/19 04:00 05:00 05:17 Temperature 99.0 F Pulse Rate 85 84 112 H Pulse Rate [ Anterior Bilateral Throughout] Pulse Rate [ Throughout] Respiratory Rate Respiratory Rate [Anterior Bilateral Throughout] Respiratory Rate [ Throughout] Blood Pressure 121/75 114/64 115/62 O2 Sat by Pulse 97 92 92 Oximetry O2 Sat by Pulse Oximetry [ Anterior Bilateral Throughout] 03/04/19 03/04/19 03/04/19 06:00 07:00 07:33 Temperature Pulse Rate 84 112 H 85 Pulse Rate [ Anterior Bilateral Throughout] Pulse Rate [ Throughout] Respiratory Rate Respiratory Rate [Anterior Bilateral Throughout] Respiratory Rate [ Throughout] Blood Pressure 116/63 128/62 105/62 O2 Sat by Pulse 93 94 98 Oximetry O2 Sat by Pulse Oximetry [ Anterior Bilateral Throughout] 03/04/19 03/04/19 03/04/19 07:46 07:53 08:00 Temperature 97.9 F Pulse Rate 85 84 Pulse Rate [ 84 Anterior Bilateral Throughout] Pulse Rate [ 112 H Throughout] Respiratory Rate Respiratory 12 Rate [Anterior Bilateral Throughout] Respiratory 12 Rate [ Throughout] Blood Pressure 105/62 126/69 O2 Sat by Pulse 98 100 Oximetry O2 Sat by Pulse Oximetry [ Anterior Bilateral Throughout] 03/04/19 03/04/19 03/04/19 08:30 08:40 08:45 Temperature 97.9 F Pulse Rate 84 84 101 H Pulse Rate [ Anterior Bilateral Throughout] Pulse Rate [ Throughout] Respiratory 16 Rate Respiratory Rate [Anterior Bilateral Throughout] Respiratory Rate [ Throughout] Blood Pressure 114/64 114/64 119/63 O2 Sat by Pulse Oximetry O2 Sat by Pulse 98 Oximetry [ Anterior Bilateral Throughout] 03/04/19 03/04/19 03/04/19 09:00 09:03 09:15 Temperature Pulse Rate 84 85 84 Pulse Rate [ Anterior Bilateral Throughout] Pulse Rate [ Throughout] Respiratory Rate Respiratory Rate [Anterior Bilateral Throughout] Respiratory Rate [ Throughout] Blood Pressure 114/64 114/64 122/65 O2 Sat by Pulse 95 Oximetry O2 Sat by Pulse Oximetry [ Anterior Bilateral Throughout] 03/04/19 03/04/19 03/04/19 09:29 09:45 10:00 Temperature Pulse Rate 84 84 84 Pulse Rate [ Anterior Bilateral Throughout] Pulse Rate [ Throughout] Respiratory Rate Respiratory Rate [Anterior Bilateral Throughout] Respiratory Rate [ Throughout] Blood Pressure 126/67 125/70 109/63 O2 Sat by Pulse 98 Oximetry O2 Sat by Pulse Oximetry [ Anterior Bilateral Throughout] 03/04/19 03/04/19 03/04/19 10:15 10:30 10:45 Temperature Pulse Rate 83 83 86 Pulse Rate [ Anterior Bilateral Throughout] Pulse Rate [ Throughout] Respiratory Rate Respiratory Rate [Anterior Bilateral Throughout] Respiratory Rate [ Throughout] Blood Pressure 122/76 132/73 136/65 O2 Sat by Pulse Oximetry O2 Sat by Pulse Oximetry [ Anterior Bilateral Throughout] 03/04/19 03/04/19 03/04/19 11:00 11:01 11:15 Temperature Pulse Rate 86 83 84 Pulse Rate [ Anterior Bilateral Throughout] Pulse Rate [ Throughout] Respiratory Rate Respiratory Rate [Anterior Bilateral Throughout] Respiratory Rate [ Throughout] Blood Pressure 135/75 135/75 136/72 O2 Sat by Pulse 97 Oximetry O2 Sat by Pulse Oximetry [ Anterior Bilateral Throughout] 03/04/19 03/04/19 03/04/19 11:29 11:45 12:00 Temperature 98.0 F Pulse Rate 84 84 84 Pulse Rate [ Anterior Bilateral Throughout] Pulse Rate [ Throughout] Respiratory Rate Respiratory Rate [Anterior Bilateral Throughout] Respiratory Rate [ Throughout] Blood Pressure 145/79 134/74 130/73 O2 Sat by Pulse 99 Oximetry O2 Sat by Pulse Oximetry [ Anterior Bilateral Throughout] 03/04/19 03/04/19 03/04/19 12:10 12:29 13:21 Temperature 98.0 F Pulse Rate 83 84 84 Pulse Rate [ Anterior Bilateral Throughout] Pulse Rate [ Throughout] Respiratory 16 Rate Respiratory Rate [Anterior Bilateral Throughout] Respiratory Rate [ Throughout] Blood Pressure 133/71 130/65 O2 Sat by Pulse Oximetry O2 Sat by Pulse 98 Oximetry [ Anterior Bilateral Throughout] 03/04/19 14:00 Temperature Pulse Rate 85 Pulse Rate [ Anterior Bilateral Throughout] Pulse Rate [ Throughout] Respiratory Rate Respiratory Rate [Anterior Bilateral Throughout] Respiratory Rate [ Throughout] Blood Pressure 131/73 O2 Sat by Pulse 100 Oximetry O2 Sat by Pulse Oximetry [ Anterior Bilateral Throughout] - General Appearance General appearance: frail EENT: ATNC Neck: other (trach collar) Respiratory: Present: Other (coarses breath sounds) Cardiology: regular, S1S2 Gastrointestinal: other (ostomy, PEG) Musculoskeletal: other (trace edema) - Lab 03/04/19 05:40 03/04/19 05:40 Most recent lab results Calcium 9.8 mg/dL (8.4-10.2) 03/04/19 05:40 Phosphorus 2.30 mg/dL (2.5-4.5) L 03/02/19 05:15 Magnesium 2.20 mg/dL (1.7-2.3) 03/02/19 05:15 Medications & Allergies - Medications Allergies/Adverse Reactions: Allergies haloperidol [From Haldol] Adverse Reaction (Verified 03/13/18 12:10) Unknown haloperidol lactate [From Haldol] Adverse Reaction (Verified 03/13/18 12:10) Unknown Home Medications: Home Medications Medication Instructions Recorded Confirmed Last Taken Type risperiDONE [RisperDAL] 1 mg PO QAM 03/13/18 02/21/19 Unknown History Sertraline [Zoloft] 100 mg PO QDAY 08/26/18 02/21/19 Unknown History Polyethylene Glycol 3350 [Miralax 17 gm PO QDAY #30 packet 11/05/18 02/21/19 Unknown Rx 3350] Aspirin EC [Halfprin EC] 81 mg PO DAILY #30 11/19/18 02/21/19 Unknown Rx Docusate Sodium [Colace CAP] 100 mg PO BID #60 11/19/18 02/21/19 Unknown Rx Folic Acid [Folvite] 1 mg PO DAILY #30 tab 11/19/18 02/21/19 Unknown Rx Famotidine [Pepcid] 20 mg PO DAILY tablet 12/08/18 02/21/19 Unknown Rx Gabapentin [Neurontin] 100 mg PO QHS capsule 12/08/18 02/21/19 Unknown Rx Metoprolol [Lopressor TAB] 50 mg PO BID 30 Days tablet 12/08/18 02/21/19 Unknown Rx Sevelamer Carbonate [Renvela] 800 mg PO TIDWM tablet 12/08/18 02/21/19 Unknown Rx hydrALAZINE [Apresoline TAB] 100 mg PO Q8HR #120 tablet 12/08/18 02/21/19 Unknown Rx Acetaminophen [Acetaminophen TAB] 650 mg PO Q12H PRN 12/15/18 02/21/19 Unknown History Glucagon,Human Recombinant 1 mg IJ Q15MIN PRN 12/15/18 02/21/19 Unknown History [Glucagon Emergency Kit] Insulin Aspart [NovoLOG 100 See Protocol SQ QWEEK 12/15/18 02/21/19 Unknown History UNITS/ML VIAL] Active Medications: Generic Name Dose Route Start Last Admin Trade Name Freq PRN Reason Stop Dose Admin Acetaminophen 650 mg 02/21/19 22:19 Tylenol PO Q4H PRN Pain MILD(1-3)/Fever >100.5/HILL Albuterol/Ipratropium 1 ampul 02/24/19 20:00 03/04/19 07:44 Duoneb *Not For Prn Use* IH 1 ampul TIDRT SANCHEZ Administration Lipase/Protease/Amylase 1 each 02/23/19 15:09 Pancreaze 10,500 Unit FEEDTUBE PRN PRN For Clogged Feeding Tube Dextrose 50 ml 02/21/19 22:22 03/03/19 17:37 D50w (25gm) Syringe IV 50 ml PRN PRN Administration Hypoglycemia Famotidine 20 mg 02/23/19 10:00 03/04/19 09:02 Pepcid PO 20 mg DAILY SANCHEZ Administration Heparin Sodium (Porcine) 5,000 unit 03/04/19 22:00 Heparin SUB-Q Q12HR SANCHEZ Hydrophilic Ointment 1 applic 02/21/19 18:24 Vaseline Lip Therapy TP Q2HR PRN Dry Lips Sodium Chloride 100 mls @ 999 mls/hr 02/26/19 09:00 Nacl 0.9% IV UMA PRN Hypotension Insulin Human Regular 0 units 02/26/19 12:00 03/04/19 13:19 Humulin R SUB-Q 1 units Q6HR SANCHEZ Administration Protocol Metoprolol Tartrate 2.5 mg 02/28/19 12:06 03/01/19 10:32 Lopressor IV 2.5 mg Q4HR PRN Administration Tachycardia Metoprolol Tartrate 25 mg 03/02/19 14:00 03/04/19 13:21 Lopressor PO 25 mg TID SANCHEZ Administration Multi-Ingred Cream/Lotion/Oil/Oint 1 applic 02/21/19 18:24 Artificial Tears Ophth Oint OU Q4HR PRN Dry Eye(s) Ondansetron HCl 4 mg 02/21/19 22:19 Zofran IV Q8H PRN Nausea And Vomiting Risperidone 1 mg 02/25/19 13:00 03/04/19 09:02 Risperdal PO 1 mg DAILY SANCHEZ Administration Sertraline HCl 100 mg 02/25/19 13:00 03/04/19 09:02 Zoloft PO 100 mg DAILY SANCHEZ Administration Simple Syrup 15 ml 02/23/19 15:09 Simple Syrup FEEDTUBE PRN PRN Hypoglycemia Simple Syrup 30 ml 02/23/19 15:09 Simple Syrup FEEDTUBE PRN PRN Hypoglycemia Sodium Bicarbonate 325 mg 02/23/19 15:09 Sodium Bicarbonate FEEDTUBE PRN PRN For Clogged Feeding Tube Sodium Chloride 10 ml 02/22/19 10:00 03/04/19 09:03 Sodium Chloride Flush Syringe 10 Ml IV 10 ml BID SANCHEZ Administration Sodium Chloride 10 ml 02/21/19 22:19 02/24/19 22:00 Sodium Chloride Flush Syringe 10 Ml IV 10 ml PRN PRN Administration LINE FLUSH
--- NOTE | 2019-03-04 17:02 | Progress Note ---
Assessment and Plan Assessment and plan: Patient is a 63-year-old -[place] man from [facility] with a plethora of co-morbidities including blindness, CVA, CHF, PPM/ICD, loop recorder since 2012 that is MRI compatible, IDDM type 2, sepsis left foot ulcer, afib, ESRD with complications on HD TTS, hypertension, AOCD and GERD who presented to the ED with hypotensive after intubation in the emergency room. Still intubated, diagnosed with fluid overload, pleural effusion. Patient has had recurrent admission in the hospital for similar reason and was recently discharged from the hospital following treatment of Severe Sepsis due to Necrotizing Unstagable sacral decubitus ulcer with ostemomylitis, expected to complete abx on discharge till 02/16/19. 24 hr update: Trach and peg planned for AM and possible LTAC transfer with ant icipated longer weaning process and wound care management. HR control improved with change in BB. Acute respiratory failure on mechanical ventilator >96 hrs - Currently on trach placed on 03/03 Pulm consult appreciated weaning trial VAP BUNDLE ASPIRATION BUNDLE Acute pulmonary edema, fluid overload on CXR repeat xray intermittently Dialysis Dilated CMP Continue diuresis Acute encephalopathy, probably metabolic or toxic Continues on Mechanical ventilator. ESRD on hemodialysis nephrology following Vascular eval. done re: LUE AV graft, see note Bilateral pleural effusions Anticipate improvement with Permanent atrial fibrillation and flutter Not on anticoagulation because of anemia thrombocytopenia Change noted to BB agent to IV. Diabetes mellitus type 2 Fingerstick Q4h NSTEMI type 2 Cardiology following Schizophrenia Legally blind supportive care hypertension Monitor BP Hypokalemia repeat in am Cardiomyiopathy EF 35-40% Pulmonary hypertension Dysphagia s/p PEG tube Sacral decub ulcer Wound Nurse consulted Severe malnutrition /hypoalbuminemia with FTT: 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, stitcher standard machine following PEG placed on 01/02/19 decubitus ulcer at his post colostomy wound care consult History of sacral osteomyelitis and LE ulcers Completed Antibiotics Place on contact isolation for ESBL Klebsiella pneumonia on wound culture 01/02/19 Schizophrenia h/o Peripheral neuropathy: Continue gabapentin Pulm HTN Anemia of chronic disease -s/p total of 8 units PRBC, follow cbc- no occult GI bleed noted. -Pt is s/p x1 DDVAP RUL atelectasis, probably mucous plugging DVT prophylaxis Lovenox Full code status poor prognosis The high probability of a clinically significant, sudden or life threatening deterioration of the [pulmonary, neuro, renal] system(s) required my full and direct attention, intervention and personal management. The aggregate critical care time was [35] minutes. This time is in addition to time spent performing reported procedures but includes the following: [x] Data Review and interpretation [x] Patient assessment and monitoring of vital signs [] Documentation [x] Medication orders and management History Interval history: Patient was seen and evaluated this morning, Patient is on trach. Hospitalist Physical - Physical exam Narrative exam: Patient is on trach and PEG The patient appeared well nourished and normally developed. Vital signs as documented. Head exam is unremarkable. No scleral icterus . Neck is without jugular venous distension, thyromegaly, or carotid bruits. Lungs are clear to auscultation. Cardiac exam reveals regular rate and Rhythm. First and second heart sounds normal. No murmurs, rubs or gallops. Abdominal exam reveals PEG tube in place, colostomy bag in place. Extremities are nonedematous and both femoral and pedal pulses are normal. 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 - Constitutional Vitals: Temp Pulse Resp BP Pulse Ox 98.0 F 84 12 117/67 98 03/04/19 12:29 03/04/19 16:00 03/04/19 14:00 03/04/19 16:00 03/04/19 16:46 General appearance: Present: no acute distress Results - Labs CBC & Chem 7: 03/04/19 05:40 03/04/19 05:40 Labs: Laboratory Last Values WBC 6.8 K/mm3 (4.5-11.0) 03/04/19 05:40 RBC 2.63 M/mm3 (3.65-5.03) L 03/04/19 05:40 Hgb 7.2 gm/dl (11.8-15.2) L 03/04/19 05:40 Hct 22.2 % (35.5-45.6) L 03/04/19 05:40 MCV 84 fl (84-94) 03/04/19 05:40 MCH 28 pg (28-32) 03/04/19 05:40 MCHC 33 % (32-34) 03/04/19 05:40 RDW 20.2 % (13.2-15.2) H 03/04/19 05:40 Plt Count 233 K/mm3 (140-440) 03/04/19 05:40 Lymph % (Auto) 10.5 % (13.4-35.0) L 03/04/19 05:40 [place] % (Auto) 7.2 % (0.0-7.3) 03/04/19 05:40 Eos % (Auto) 4.6 % (0.0-4.3) H 03/04/19 05:40 Baso % (Auto) 0.8 % (0.0-1.8) 03/04/19 05:40 Lymph # 0.7 K/mm3 (1.2-5.4) L 03/04/19 05:40 [place] # 0.5 K/mm3 (0.0-0.8) 03/04/19 05:40 Eos # 0.3 K/mm3 (0.0-0.4) 03/04/19 05:40 Baso # 0.1 K/mm3 (0.0-0.1) 03/04/19 05:40 Seg Neutrophils % 76.9 % (40.0-70.0) H 03/04/19 05:40 Seg Neutrophils # 5.2 K/mm3 (1.8-7.7) 03/04/19 05:40 PT 16.3 Sec. (12.2-14.9) H 03/01/19 09:39 INR 1.35 (0.87-1.13) H 03/01/19 09:39 APTT 33.7 Sec. (24.2-36.6) 02/21/19 18:30 2987.82 ng/mlDDU (0-234) H 02/22/19 05:54 POC ABG pH 7.483 (7.35-7.45) H 02/27/19 04:35 POC ABG pCO2 37.5 (35-45) 02/27/19 04:35 POC ABG pO2 61 (80-105) L 02/27/19 04:35 POC ABG HCO3 28.1 (22-26 mml/L) 02/27/19 04:35 POC ABG Total CO2 29 (23-27mmol/L) 02/27/19 04:35 POC ABG O2 Sat 93 02/27/19 04:35 POC ABG Base Excess 5 ((-2) - (+3)mmol/L) 02/27/19 04:35 30 % 02/27/19 04:35 Sodium 142 mmol/L (137-145) 03/04/19 05:40 Potassium 4.4 mmol/L (3.6-5.0) 03/04/19 05:40 Chloride 101.2 mmol/L (98-107) 03/04/19 05:40 Carbon Dioxide 30 mmol/L (22-30) 03/04/19 05:40 15 mmol/L 03/04/19 05:40 BUN 34 mg/dL (9-20) H 03/04/19 05:40 2.7 mg/dL (0.8-1.5) H 03/04/19 05:40 Estimated GFR 29 ml/min 03/04/19 05:40 13 % 03/04/19 05:40 Glucose 114 mg/dL (75-100) H 03/04/19 05:40 POC Glucose 175 (70-105) H 03/04/19 11:39 Lactic Acid 1.00 mmol/L (0.7-2.0) 02/21/19 20:58 Calcium 9.8 mg/dL (8.4-10.2) 03/04/19 05:40 Phosphorus 2.30 mg/dL (2.5-4.5) L 03/02/19 05:15 Magnesium 2.20 mg/dL (1.7-2.3) 03/02/19 05:15 0.20 mg/dL (0.1-1.2) 02/21/19 18:30 AST 17 units/L (5-40) 02/21/19 18:30 ALT 7 units/L (7-56) 02/21/19 18:30 136 units/L (35-129) H 02/21/19 18:30 28.0 umol/L (25-60) 02/21/19 20:04 64 units/L (55-170) 02/22/19 03:42 CK-MB (CK-2) 3.7 ng/mL (0.0-4.0) 02/22/19 03:42 CK-MB (CK-2) Rel Index 5.7 (0-4) H 02/22/19 03:42 0.193 ng/mL (0.00-0.029) H* 02/22/19 03:42 6.7 g/dL (6.3-8.2) 02/21/19 18:30 2.4 g/dL (3.9-5) L 02/21/19 18:30 0.6 % 02/21/19 18:30 Triglycerides 51 mg/dL (2-149) 02/21/19 18:30 Cholesterol 82 mg/dL (50-199) 02/21/19 18:30 36 mg/dL (50-130) L 02/21/19 18:30 40 mg/dL (40-59) 02/21/19 18:30 2.05 % 02/21/19 18:30 TSH 2.760 mlU/mL (0.270-4.200) 02/21/19 20:04 PTH Intact 267.6 pg/mL (15-65) H 03/02/19 05:15 Salicylates < 0.3 mg/dL (2.8-20.0) L 02/21/19 20:04 Acetaminophen < 5.0 ug/mL (10.0-30.0) L 02/21/19 20:04 Hepatitis A IgM Ab Non-reactive (NonReactive) 02/23/19 11:20 Hep Bs Antigen Non-reactive (Negative) 02/23/19 11:20 Hep B Core IgM Ab Non-reactive (NonReactive) 02/23/19 11:20 Non-reactive (NonReactive) 02/23/19 11:20 Active Medications - Current Medications Current Medications: Generic Name Dose Route Start Last Admin Trade Name Freq PRN Reason Stop Dose Admin Acetaminophen 650 mg 02/21/19 22:19 Tylenol PO Q4H PRN Pain MILD(1-3)/Fever >100.5/HILL Albuterol/Ipratropium 1 ampul 02/24/19 20:00 03/04/19 16:52 Duoneb *Not For Prn Use* IH 1 ampul TIDRT SANCHEZ Administration Lipase/Protease/Amylase 1 each 02/23/19 15:09 Pancrejewel Barrientos 10,500 Unit FEEDTUBE PRN PRN For Clogged Feeding Tube Dextrose 50 ml 02/21/19 22:22 03/03/19 17:37 D50w (25gm) Syringe IV 50 ml PRN PRN Administration Hypoglycemia Famotidine 20 mg 02/23/19 10:00 03/04/19 09:02 Pepcid PO 20 mg DAILY SANCHEZ Administration Heparin Sodium (Porcine) 5,000 unit 03/04/19 22:00 Heparin SUB-Q Q12HR SANCHEZ Hydrophilic Ointment 1 applic 02/21/19 18:24 Vaseline Lip Therapy TP Q2HR PRN Dry Lips Sodium Chloride 100 mls @ 999 mls/hr 02/26/19 09:00 Nacl 0.9% IV UMA PRN Hypotension Insulin Human Regular 0 units 02/26/19 12:00 03/04/19 13:19 Humulin R SUB-Q 1 units Q6HR SANCHEZ Administration Protocol Metoprolol Tartrate 2.5 mg 02/28/19 12:06 03/01/19 10:32 Lopressor IV 2.5 mg Q4HR PRN Administration Tachycardia Metoprolol Tartrate 25 mg 03/02/19 14:00 03/04/19 13:21 Lopressor PO 25 mg TID SANCHEZ Administration Multi-Ingred Cream/Lotion/Oil/Oint 1 applic 02/21/19 18:24 Artificial Tears Ophth Oint OU Q4HR PRN Dry Eye(s) Ondansetron HCl 4 mg 02/21/19 22:19 Zofran IV Q8H PRN Nausea And Vomiting Risperidone 1 mg 02/25/19 13:00 03/04/19 09:02 Risperdal PO 1 mg DAILY SANCHEZ Administration Sertraline HCl 100 mg 02/25/19 13:00 03/04/19 09:02 Zoloft PO 100 mg DAILY SANCHEZ Administration Simple Syrup 15 ml 02/23/19 15:09 Simple Syrup FEEDTUBE PRN PRN Hypoglycemia Simple Syrup 30 ml 02/23/19 15:09 Simple Syrup FEEDTUBE PRN PRN Hypoglycemia Sodium Bicarbonate 325 mg 02/23/19 15:09 Sodium Bicarbonate FEEDTUBE PRN PRN For Clogged Feeding Tube Sodium Chloride 10 ml 02/22/19 10:00 03/04/19 09:03 Sodium Chloride Flush Syringe 10 Ml IV 10 ml BID SANCHEZ Administration Sodium Chloride 10 ml 02/21/19 22:19 02/24/19 22:00 Sodium Chloride Flush Syringe 10 Ml IV 10 ml PRN PRN Administration LINE FLUSH Nutrition/Malnutrition Assess - Dietary Evaluation Nutrition/Malnutrition Findings: Nutrition Notes Start: 02/22/19 12:51 Freq: Status: Active Protocol: Document 02/26/19 13:54 RM (Rec: 02/26/19 13:59 RM [id number]) Nutrition Notes Initial or Follow up Reassessment Current Diagnosis Diabetes,Hypertension Other Pertinent Diagnosis Sacral PU, ESRD on HD (T/Thurs /Sat), Schizophrenia, Blind in L eye Current Diet Vital 1.2 at 70 ml/hr Labs/Tests K 3.9 Pertinent Medications Reviewed Height 5 ft 10 in Weight 88.7 kg [place] Body Weight (kg) 75.45 BMI 28.0 Subjective/Other Information Observed Vital 1.2 infusing at goal rate. Per nurse pt is tolerating TF and receiving Abhilash. Percent of energy/protein needs met: 100%/100% Burn Absent Trauma Absent #2 Nutrition Diagnosis Increased nutrient needs ( specify in comment below) Diagnosis Progress(for reassessment Continues documentation) #1 Nutrition Diagnosis Inadequate oral intake Diagnosis Progress(for reassessment Continues documentation) Is patient on ventilator? Yes Is Patient Ambulatory and/or Out of Bed No REE-([facility]-confined to bed) 97 Calculation Used for Recommendations Kcal/kg Additional Notes Protein Needs: 106-177g (1.2- 2g/kg) Fluid Needs: 1 ml/kcal Nutrition Intervention Nutrition Support: Vital 1.2 at 70 ml/hr Water flush of 100 mls q 4 hrs Kcal 2,016 Protein (gm) 126 Fluid (mL) 1,362 Add Supplement/Snack (indicate name/kcal Abhilash BID /protein ) Provides kCal: 190 Provides Protein (gm) 5 Goal #1 TF tolerance Goal #2 Continue to meet at least 80% of calorie and protein needs via TF Anticipated Discharge Needs: Unable to determine at this time Follow-Up By: 03/05/19 Additional Comments Follow for TF tolerance
[2019-03-04] MEDS: HEPARIN 5,000 UNIT/1 ML VIAL SUB-Q SCH (22:38)
[2019-03-05] MEDS: INSULIN REGULAR, HUMAN 100 UNITS/1 ML SUB-Q SCH ×4 (06:39→18:11)
[2019-03-05] MEDS: ACETAMINOPHEN 325 MG TAB PO PRN (08:16)
[2019-03-05] MEDS: METOPROLOL TARTRATE 25 MG TAB PO SCH ×3 (08:16→20:16)
[2019-03-05] MEDS: IPRATROPIUM/ALBUTEROL SULFATE 3 ML AMPUL.NEB IH SCH ×3 (09:09→19:33)
--- NOTE | 2019-03-05 09:18 | Progress Note ---
Assessment and Plan Assessment: * End stage renal disease (outpatient TTS schedule) * Acute hypoxic respiratory failure on mechanical ventilation * Atrial fibrillation * History of CVA * Anemia secondary to ESRD * Secondary hyperparathyroidism Plan * Continue HD MWF schedule for now * UF as tolerated * Vascular surgery notes reviewed - permcath removal prior to d/c * Empiric abx per ID/primary team * Nutrition per primary team * Dose medications for renal function * Epogen TID prn Subjective Date of service: 03/05/19 Principal diagnosis: respiratory failure Interval history: No acute events overnight Objective - Vital Signs Vital signs: Vital Signs - 12hr 03/04/19 03/04/19 03/04/19 22:00 23:00 23:07 Temperature Pulse Rate 86 112 H 102 H Respiratory Rate Blood Pressure 126/66 132/75 132/75 O2 Sat by Pulse 96 96 96 Oximetry O2 Sat by Pulse Oximetry [ Assessment] 03/04/19 03/04/19 03/05/19 23:45 23:53 00:00 Temperature 98.9 F Pulse Rate 96 H 112 H Respiratory Rate Blood Pressure 128/69 128/69 O2 Sat by Pulse 97 97 Oximetry O2 Sat by Pulse Oximetry [ Assessment] 03/05/19 03/05/19 03/05/19 01:00 02:01 03:00 Temperature Pulse Rate 113 H 99 H 113 H Respiratory Rate Blood Pressure 131/70 128/77 129/73 O2 Sat by Pulse 92 96 90 Oximetry O2 Sat by Pulse Oximetry [ Assessment] 03/05/19 03/05/19 03/05/19 04:00 04:20 04:33 Temperature 98.8 F Pulse Rate 113 H 113 H Respiratory Rate Blood Pressure 137/76 142/76 O2 Sat by Pulse 96 95 Oximetry O2 Sat by Pulse 97 Oximetry [ Assessment] 03/05/19 03/05/19 03/05/19 05:00 06:00 08:16 Temperature Pulse Rate 85 114 H 114 H Respiratory Rate Blood Pressure 118/70 133/78 140/75 O2 Sat by Pulse 96 92 Oximetry O2 Sat by Pulse Oximetry [ Assessment] 03/05/19 09:10 Temperature Pulse Rate 114 H Respiratory 17 Rate Blood Pressure 125/68 O2 Sat by Pulse 94 Oximetry O2 Sat by Pulse Oximetry [ Assessment] - General Appearance General appearance: chronically ill, frail EENT: ATNC Neck: other (trach) Respiratory: Present: Other (coarse BS) Cardiology: regular, S1S2 Musculoskeletal: other (no edema) - Lab 03/04/19 05:40 03/04/19 05:40 Most recent lab results Calcium 9.8 mg/dL (8.4-10.2) 03/04/19 05:40 Phosphorus 2.30 mg/dL (2.5-4.5) L 03/02/19 05:15 Magnesium 2.20 mg/dL (1.7-2.3) 03/02/19 05:15 Medications & Allergies - Medications Allergies/Adverse Reactions: Allergies haloperidol [From Haldol] Adverse Reaction (Verified 03/13/18 12:10) Unknown haloperidol lactate [From Haldol] Adverse Reaction (Verified 03/13/18 12:10) Unknown Home Medications: Home Medications Medication Instructions Recorded Confirmed Last Taken Type risperiDONE [RisperDAL] 1 mg PO QAM 03/13/18 02/21/19 Unknown History Sertraline [Zoloft] 100 mg PO QDAY 08/26/18 02/21/19 Unknown History Polyethylene Glycol 3350 [Miralax 17 gm PO QDAY #30 packet 11/05/18 02/21/19 U nknown Rx 3350] Aspirin EC [Halfprin EC] 81 mg PO DAILY #30 11/19/18 02/21/19 Unknown Rx Docusate Sodium [Colace CAP] 100 mg PO BID #60 11/19/18 02/21/19 Unknown Rx Folic Acid [Folvite] 1 mg PO DAILY #30 tab 11/19/18 02/21/19 Unknown Rx Famotidine [Pepcid] 20 mg PO DAILY tablet 12/08/18 02/21/19 Unknown Rx Gabapentin [Neurontin] 100 mg PO QHS capsule 12/08/18 02/21/19 Unknown Rx Metoprolol [Lopressor TAB] 50 mg PO BID 30 Days tablet 12/08/18 02/21/19 Unknown Rx Sevelamer Carbonate [Renvela] 800 mg PO TIDWM tablet 12/08/18 02/21/19 Unknown Rx hydrALAZINE [Apresoline TAB] 100 mg PO Q8HR #120 tablet 12/08/18 02/21/19 Unknown Rx Acetaminophen [Acetaminophen TAB] 650 mg PO Q12H PRN 12/15/18 02/21/19 Unknown History Glucagon,Human Recombinant 1 mg IJ Q15MIN PRN 12/15/18 02/21/19 Unknown History [Glucagon Emergency Kit] Insulin Aspart [NovoLOG 100 See Protocol SQ QWEEK 12/15/18 02/21/19 Unknown History UNITS/ML VIAL] Active Medications: Generic Name Dose Route Start Last Admin Trade Name Freq PRN Reason Stop Dose Admin Acetaminophen 650 mg 02/21/19 22:19 03/05/19 08:16 Tylenol PO 650 mg Q4H PRN Administration Pain MILD(1-3)/Fever >100.5/HILL Albuterol/Ipratropium 1 ampul 02/24/19 20:00 03/05/19 09:09 Duoneb *Not For Prn Use* IH 1 ampul TIDRT SANCHEZ Administration Lipase/Protease/Amylase 1 each 02/23/19 15:09 Pancreazkaren Barrientos 10,500 Unit FEEDTUBE PRN PRN For Clogged Feeding Tube Dextrose 50 ml 02/21/19 22:22 03/03/19 17:37 D50w (25gm) Syringe IV 50 ml PRN PRN Administration Hypoglycemia Famotidine 20 mg 02/23/19 10:00 03/04/19 09:02 Pepcid PO 20 mg DAILY SANCHEZ Administration Heparin Sodium (Porcine) 5,000 unit 03/04/19 22:00 03/04/19 22:38 Heparin SUB-Q 5,000 unit Q12HR SANCHEZ Administration Hydrophilic Ointment 1 applic 02/21/19 18:24 03/05/19 08:16 Vaseline Lip Therapy TP 1 applic Q2HR PRN Administration Dry Lips Sodium Chloride 100 mls @ 999 mls/hr 02/26/19 09:00 Nacl 0.9% IV UMA PRN Hypotension Insulin Human Regular 0 units 02/26/19 12:00 03/05/19 06:39 Humulin R SUB-Q Not Given Q6HR ON LICENSE OF [facility] Protocol Metoprolol Tartrate 2.5 mg 02/28/19 12:06 03/01/19 10:32 Lopressor IV 2.5 mg Q4HR PRN Administration Tachycardia Metoprolol Tartrate 25 mg 03/02/19 14:00 03/05/19 08:16 Lopressor PO 25 mg TID SANCHEZ Administration Multi-Ingred Cream/Lotion/Oil/Oint 1 applic 02/21/19 18:24 Artificial Tears Ophth Oint OU Q4HR PRN Dry Eye(s) Ondansetron HCl 4 mg 02/21/19 22:19 Zofran IV Q8H PRN Nausea And Vomiting Risperidone 1 mg 02/25/19 13:00 03/04/19 09:02 Risperdal PO 1 mg DAILY SANCHEZ Administration Sertraline HCl 100 mg 02/25/19 13:00 03/04/19 09:02 Zoloft PO 100 mg DAILY SANCHEZ Administration Simple Syrup 15 ml 02/23/19 15:09 Simple Syrup FEEDTUBE PRN PRN Hypoglycemia Simple Syrup 30 ml 02/23/19 15:09 Simple Syrup FEEDTUBE PRN PRN Hypoglycemia Sodium Bicarbonate 325 mg 02/23/19 15:09 Sodium Bicarbonate FEEDTUBE PRN PRN For Clogged Feeding Tube Sodium Chloride 10 ml 02/22/19 10:00 03/04/19 22:38 Sodium Chloride Flush Syringe 10 Ml IV 10 ml BID SANCHEZ Administration Sodium Chloride 10 ml 02/21/19 22:19 02/24/19 22:00 Sodium Chloride Flush Syringe 10 Ml IV 10 ml PRN PRN Administration LINE FLUSH
[2019-03-05] MEDS: FAMOTIDINE 20 MG TAB PO SCH (09:55)
[2019-03-05] MEDS: SERTRALINE 100 MG TAB PO SCH (09:55)
[2019-03-05] MEDS: risperiDONE 1 MG TAB PO SCH (09:56)
[2019-03-05] MEDS: HEPARIN 5,000 UNIT/1 ML VIAL SUB-Q SCH ×2 (09:56→21:27)
--- NOTE | 2019-03-05 11:53 | Progress Note ---
Assessment and Plan 63 y/o male with multiple medical issues admitted with altered mental status, acute respiratory failure requiring mechanical ventilation 1. Trached. Continue daily PSV trials 2. HD per renal 3. Suggest transfer to [facility] for further weaning. Patient is medically stable and ready for discharge to there now. This was discussed again today on rounds. 4. Continue oral TID BB and continue PRN IV lopressor. 5. Continue to monitor in ICU given vent requirements. 6. Added q6hour 50mg Tramadol to see if this would help with pain. Nursing feels it is back pain. CCT 31 minutes. Subjective Date of service: 03/05/19 Principal diagnosis: respiratory failure Interval history: No acute events. Per nursing, patient having more pain. Medicated with Tylenol but no improvement. No family present at bedside. Trach stable. Objective Vital Signs - 12hr 03/04/19 03/05/19 03/05/19 23:53 00:00 01:00 Temperature Pulse Rate 96 H 112 H 113 H Respiratory Rate Blood Pressure 128/69 128/69 131/70 O2 Sat by Pulse 97 97 92 Oximetry O2 Sat by Pulse Oximetry [ Assessment] 03/05/19 03/05/19 03/05/19 02:01 03:00 04:00 Temperature 98.8 F Pulse Rate 99 H 113 H 113 H Respiratory Rate Blood Pressure 128/77 129/73 137/76 O2 Sat by Pulse 96 90 96 Oximetry O2 Sat by Pulse Oximetry [ Assessment] 03/05/19 03/05/19 03/05/19 04:20 04:33 05:00 Temperature Pulse Rate 113 H 85 Respiratory Rate Blood Pressure 142/76 118/70 O2 Sat by Pulse 95 96 Oximetry O2 Sat by Pulse 97 Oximetry [ Assessment] 03/05/19 03/05/19 03/05/19 06:00 07:00 08:00 Temperature 99.0 F Pulse Rate 114 H 85 112 H Respiratory Rate Blood Pressure 133/78 140/60 146/72 O2 Sat by Pulse 92 96 91 Oximetry O2 Sat by Pulse Oximetry [ Assessment] 03/05/19 03/05/19 03/05/19 08:16 09:00 09:10 Temperature Pulse Rate 114 H 85 114 H Respiratory 17 Rate Blood Pressure 140/75 125/58 125/68 O2 Sat by Pulse 95 94 Oximetry O2 Sat by Pulse Oximetry [ Assessment] 03/05/19 03/05/19 10:00 11:00 Temperature Pulse Rate 85 103 H Respiratory Rate Blood Pressure 131/55 143/73 O2 Sat by Pulse 97 92 Oximetry O2 Sat by Pulse Oximetry [ Assessment] Constitutional: alert, other (critically ill on vent) Eyes: non-icteric Effort: normal Ascultation: Bilateral: diminished breath sounds, other (coarse BS bilaterally) Percussion: Bilateral: not dull Cardiovascular: regular rate and rhythm (no mrg) Gastrointestinal: normoactive bowel sounds, soft, non-tender, non-distended Extremities: no edema, pink and warm Neurologic: other (somnolent, minimally arousable, squeezes with R and L hand and wiggles toes on command) Psychiatric: other (unable to assess) CBC and BMP: 03/04/19 05:40 03/04/19 05:40 ABG, PT/INR, D-dimer: ABG POC ABG pH 7.483 (7.35-7.45) H 02/27/19 04:35 POC ABG pCO2 37.5 (35-45) 02/27/19 04:35 POC ABG pO2 61 (80-105) L 02/27/19 04:35 POC ABG HCO3 28.1 (22-26 mml/L) 02/27/19 04:35 POC ABG Total CO2 29 (23-27mmol/L) 02/27/19 04:35 POC ABG O2 Sat 93 02/27/19 04:35 PT/INR, D-dimer PT 16.3 Sec. (12.2-14.9) H 03/01/19 09:39 INR 1.35 (0.87-1.13) H 03/01/19 09:39 2987.82 ng/mlDDU (0-234) H 02/22/19 05:54 Abnormal lab findings: Abnormal Labs 02/21/19 02/21/19 02/21/19 18:30 18:30 18:30 RBC 3.26 L Hgb 8.8 L Hct 29.0 L MCH 27 L MCHC 30 L RDW 19.1 H Lymph % (Auto) 6.1 L [place] % (Auto) Eos % (Auto) Lymph # 0.4 L Eos # Seg Neutrophils % 86.2 H PT INR D-Dimer POC ABG pH POC ABG pCO2 POC ABG pO2 Sodium 133 L Potassium 3.3 L Chloride 93.1 L Carbon Dioxide 33 H BUN Creatinine Glucose 161 H POC Glucose Phosphorus Alkaline Phosphatase 136 H Total Creatine Kinase 37 L CK-MB (CK-2) Rel Index Troponin T 0.192 H* Albumin 2.4 L LDL Cholesterol Direct 36 L PTH Intact Salicylates Acetaminophen 02/21/19 02/21/19 02/21/19 18:42 20:04 20:04 RBC Hgb Hct MCH MCHC RDW Lymph % (Auto) [place] % (Auto) Eos % (Auto) Lymph # Eos # Seg Neutrophils % PT INR D-Dimer POC ABG pH POC ABG pCO2 56.7 H POC ABG pO2 291 H Sodium Potassium Chloride Carbon Dioxide BUN Creatinine Glucose POC Glucose Phosphorus Alkaline Phosphatase Total Creatine Kinase CK-MB (CK-2) Rel Index Troponin T Albumin LDL Cholesterol Direct PTH Intact Salicylates < 0.3 L Acetaminophen < 5.0 L 02/21/19 02/22/19 02/22/19 22:35 03:42 03:42 RBC 3.20 L Hgb 8.8 L Hct 27.6 L MCH MCHC RDW 18.9 H Lymph % (Auto) 7.4 L [place] % (Auto) Eos % (Auto) Lymph # 0.7 L Eos # Seg Neutrophils % 84.7 H PT INR D-Dimer POC ABG pH POC ABG pCO2 POC ABG pO2 Sodium 134 L Potassium 2.6 L* D Chloride Carbon Dioxide BUN Creatinine Glucose POC Glucose Phosphorus Alkaline Phosphatase Total Creatine Kinase CK-MB (CK-2) Rel Index 5.2 H Troponin T 0.202 H* Albumin LDL Cholesterol Direct PTH Intact Salicylates Acetaminophen 02/22/19 02/22/19 02/22/19 03:42 05:54 09:04 RBC Hgb Hct MCH MCHC RDW Lymph % (Auto) [place] % (Auto) Eos % (Auto) Lymph # Eos # Seg Neutrophils % PT INR D-Dimer 2987.82 H POC ABG pH 7.451 H POC ABG pCO2 POC ABG pO2 Sodium Potassium Chloride Carbon Dioxide BUN Creatinine Glucose POC Glucose Phosphorus Alkaline Phosphatase Total Creatine Kinase CK-MB (CK-2) Rel Index 5.7 H Troponin T 0.193 H* Albumin LDL Cholesterol Direct PTH Intact Salicylates Acetaminophen 02/22/19 02/22/19 02/23/19 10:36 23:56 00:52 RBC Hgb Hct MCH MCHC RDW Lymph % (Auto) [place] % (Auto) Eos % (Auto) Lymph # Eos # Seg Neutrophils % PT INR D-Dimer POC ABG pH POC ABG pCO2 POC ABG pO2 Sodium Potassium 3.1 L Chloride Carbon Dioxide BUN Creatinine Glucose POC Glucose 58 L 111 H Phosphorus Alkaline Phosphatase Total Creatine Kinase CK-MB (CK-2) Rel Index Troponin T Albumin LDL Cholesterol Direct PTH Intact Salicylates Acetaminophen 02/23/19 02/23/19 02/23/19 05:00 06:35 14:26 RBC Hgb Hct MCH MCHC RDW Lymph % (Auto) [place] % (Auto) Eos % (Auto) Lymph # Eos # Seg Neutrophils % PT INR D-Dimer POC ABG pH POC ABG pCO2 POC ABG pO2 Sodium 135 L Potassium 3.1 L Chloride Carbon Dioxide BUN 21 H Creatinine 2.0 H Glucose 57 L POC Glucose 64 L 62 L Phosphorus Alkaline Phosphatase Total Creatine Kinase CK-MB (CK-2) Rel Index Troponin T Albumin LDL Cholesterol Direct PTH Intact Salicylates Acetaminophen 02/24/19 02/24/19 02/24/19 02:11 04:12 04:55 RBC 2.84 L Hgb 7.8 L Hct 24.5 L MCH MCHC RDW 19.5 H Lymph % (Auto) [place] % (Auto) Eos % (Auto) Lymph # Eos # Seg Neutrophils % PT INR D-Dimer POC ABG pH 7.511 H POC ABG pCO2 33.9 L POC ABG pO2 62 L Sodium Potassium Chloride Carbon Dioxide BUN Creatinine Glucose POC Glucose 69 L Phosphorus Alkaline Phosphatase Total Creatine Kinase CK-MB (CK-2) Rel Index Troponin T Albumin LDL Cholesterol Direct PTH Intact Salicylates Acetaminophen 02/24/19 02/24/19 02/25/19 04:55 05:41 04:45 RBC Hgb Hct MCH MCHC RDW Lymph % (Auto) [place] % (Auto) Eos % (Auto) Lymph # Eos # Seg Neutrophils % PT INR D-Dimer POC ABG pH 7.466 H POC ABG pCO2 POC ABG pO2 75 L Sodium Potassium Chloride Carbon Dioxide BUN Creatinine 1.8 H Glucose 73 L POC Glucose 127 H Phosphorus Alkaline Phosphatase Total Creatine Kinase CK-MB (CK-2) Rel Index Troponin T Albumin LDL Cholesterol Direct PTH Intact Salicylates Acetaminophen 02/25/19 02/25/19 02/26/19 16:34 21:33 03:45 RBC 2.96 L Hgb 8.0 L Hct 25.8 L MCH 27 L MCHC 31 L RDW 20.0 H Lymph % (Auto) [place] % (Auto) Eos % (Auto) Lymph # Eos # Seg Neutrophils % PT INR D-Dimer POC ABG pH POC ABG pCO2 POC ABG pO2 Sodium Potassium Chloride Carbon Dioxide BUN Creatinine Glucose POC Glucose 141 H 106 H Phosphorus Alkaline Phosphatase Total Creatine Kinase CK-MB (CK-2) Rel Index Troponin T Albumin LDL Cholesterol Direct PTH Intact Salicylates Acetaminophen 02/26/19 02/26/19 02/26/19 03:45 04:13 07:53 RBC Hgb Hct MCH MCHC RDW Lymph % (Auto) [place] % (Auto) Eos % (Auto) Lymph # Eos # Seg Neutrophils % PT INR D-Dimer POC ABG pH 7.470 H POC ABG pCO2 POC ABG pO2 Sodium Potassium Chloride Carbon Dioxide BUN Creatinine 1.8 H Glucose POC Glucose 110 H Phosphorus Alkaline Phosphatase Total Creatine Kinase CK-MB (CK-2) Rel Index Troponin T Albumin LDL Cholesterol Direct PTH Intact Salicylates Acetaminophen 02/26/19 02/26/19 02/27/19 11:56 17:43 00:12 RBC Hgb Hct MCH MCHC RDW Lymph % (Auto) [place] % (Auto) Eos % (Auto) Lymph # Eos # Seg Neutrophils % PT INR D-Dimer POC ABG pH POC ABG pCO2 POC ABG pO2 Sodium Potassium Chloride Carbon Dioxide BUN Creatinine Glucose POC Glucose 112 H 127 H 127 H Phosphorus Alkaline Phosphatase Total Creatine Kinase CK-MB (CK-2) Rel Index Troponin T Albumin LDL Cholesterol Direct PTH Intact Salicylates Acetaminophen 02/27/19 02/27/19 02/27/19 04:35 13:15 18:02 RBC Hgb Hct MCH MCHC RDW Lymph % (Auto) [place] % (Auto) Eos % (Auto) Lymph # Eos # Seg Neutrophils % PT INR D-Dimer POC ABG pH 7.483 H POC ABG pCO2 POC ABG pO2 61 L Sodium Potassium Chloride Carbon Dioxide BUN Creatinine Glucose POC Glucose 143 H 106 H Phosphorus Alkaline Phosphatase Total Creatine Kinase CK-MB (CK-2) Rel Index Troponin T Albumin LDL Cholesterol Direct PTH Intact Salicylates Acetaminophen 02/28/19 02/28/19 02/28/19 05:50 11:59 17:52 RBC Hgb Hct MCH MCHC RDW Lymph % (Auto) [place] % (Auto) Eos % (Auto) Lymph # Eos # Seg Neutrophils % PT INR D-Dimer POC ABG pH POC ABG pCO2 POC ABG pO2 Sodium Potassium Chloride Carbon Dioxide BUN Creatinine Glucose POC Glucose 134 H 128 H 142 H Phosphorus Alkaline Phosphatase Total Creatine Kinase CK-MB (CK-2) Rel Index Troponin T Albumin LDL Cholesterol Direct PTH Intact Salicylates Acetaminophen 02/28/19 03/01/19 03/01/19 23:13 05:40 09:39 RBC Hgb Hct MCH MCHC RDW Lymph % (Auto) [place] % (Auto) Eos % (Auto) Lymph # Eos # Seg Neutrophils % PT 16.3 H INR 1.35 H D-Dimer POC ABG pH POC ABG pCO2 POC ABG pO2 Sodium Potassium Chloride Carbon Dioxide BUN Creatinine Glucose POC Glucose 112 H 111 H Phosphorus Alkaline Phosphatase Total Creatine Kinase CK-MB (CK-2) Rel Index Troponin T Albumin LDL Cholesterol Direct PTH Intact Salicylates Acetaminophen 03/01/19 03/01/19 03/01/19 11:56 13:54 17:59 RBC Hgb Hct MCH MCHC RDW Lymph % (Auto) [place] % (Auto) Eos % (Auto) Lymph # Eos # Seg Neutrophils % PT INR D-Dimer POC ABG pH POC ABG pCO2 POC ABG pO2 Sodium Potassium Chloride Carbon Dioxide BUN 33 H Creatinine 2.8 H D Glucose 176 H POC Glucose 199 H 147 H Phosphorus Alkaline Phosphatase Total Creatine Kinase CK-MB (CK-2) Rel Index Troponin T Albumin LDL Cholesterol Direct PTH Intact Salicylates Acetaminophen 03/02/19 03/02/19 03/02/19 05:15 05:15 05:15 RBC 2.73 L Hgb 7.4 L Hct 23.0 L MCH 27 L MCHC RDW 19.9 H Lymph % (Auto) [place] % (Auto) 7.9 H Eos % (Auto) 7.6 H Lymph # 1.0 L Eos # 0.5 H Seg Neutrophils % PT INR D-Dimer POC ABG pH POC ABG pCO2 POC ABG pO2 Sodium Potassium Chloride Carbon Dioxide BUN 43 H Creatinine 3.2 H Glucose POC Glucose Phosphorus 2.30 L Alkaline Phosphatase Total Creatine Kinase CK-MB (CK-2) Rel Index Troponin T Albumin LDL Cholesterol Direct PTH Intact 267.6 H Salicylates Acetaminophen 03/02/19 03/02/19 03/03/19 12:32 18:20 13:30 RBC Hgb Hct MCH MCHC RDW Lymph % (Auto) [place] % (Auto) Eos % (Auto) Lymph # Eos # Seg Neutrophils % PT INR D-Dimer POC ABG pH POC ABG pCO2 POC ABG pO2 Sodium Potassium Chloride 97.3 L Carbon Dioxide BUN 26 H Creatinine 2.2 H Glucose 73 L POC Glucose 111 H 156 H Phosphorus Alkaline Phosphatase Total Creatine Kinase CK-MB (CK-2) Rel Index Troponin T Albumin LDL Cholesterol Direct PTH Intact Salicylates Acetaminophen 03/04/19 03/04/19 03/04/19 00:02 05:37 05:40 RBC 2.63 L Hgb 7.2 L Hct 22.2 L MCH MCHC RDW 20.2 H Lymph % (Auto) 10.5 L [place] % (Auto) Eos % (Auto) 4.6 H Lymph # 0.7 L Eos # Seg Neutrophils % 76.9 H PT INR D-Dimer POC ABG pH POC ABG pCO2 POC ABG pO2 Sodium Potassium Chloride Carbon Dioxide BUN Creatinine Glucose POC Glucose 136 H 123 H Phosphorus Alkaline Phosphatase Total Creatine Kinase CK-MB (CK-2) Rel Index Troponin T Albumin LDL Cholesterol Direct PTH Intact Salicylates Acetaminophen 03/04/19 03/04/19 03/04/19 05:40 11:39 23:20 RBC Hgb Hct MCH MCHC RDW Lymph % (Auto) [place] % (Auto) Eos % (Auto) Lymph # Eos # Seg Neutrophils % PT INR D-Dimer POC ABG pH POC ABG pCO2 POC ABG pO2 Sodium Potassium Chloride Carbon Dioxide BUN 34 H Creatinine 2.7 H Glucose 114 H POC Glucose 175 H 151 H Phosphorus Alkaline Phosphatase Total Creatine Kinase CK-MB (CK-2) Rel Index Troponin T Albumin LDL Cholesterol Direct PTH Intact Salicylates Acetaminophen 03/05/19 05:37 RBC Hgb Hct MCH MCHC RDW Lymph % (Auto) [place] % (Auto) Eos % (Auto) Lymph # Eos # Seg Neutrophils % PT INR D-Dimer POC ABG pH POC ABG pCO2 POC ABG pO2 Sodium Potassium Chloride Carbon Dioxide BUN Creatinine Glucose POC Glucose 134 H Phosphorus Alkaline Phosphatase Total Creatine Kinase CK-MB (CK-2) Rel Index Troponin T Albumin LDL Cholesterol Direct PTH Intact Salicylates Acetaminophen
[2019-03-05] MEDS: traMADol 50 MG TAB PO PRN (12:04)
[2019-03-05] MEDS ORDERED: LIPASE 10,500/PROTEASE 25,000/AMYLASE 43,750 (UNITS) DR CAP FEEDTUBE PRN (14:04)
[2019-03-05] MEDS ORDERED: SIMPLE SYRUP 15 ML FEEDTUBE PRN ×2 (14:04)
[2019-03-05] MEDS ORDERED: SODIUM BICARBONATE 325 MG TAB FEEDTUBE PRN (14:04)
--- NOTE | 2019-03-05 14:19 | Progress Note ---
Assessment and Plan Assessment and plan: Patient is a 63-year-old -[place] man from [facility] with a plethora of co-morbidities including blindness, CVA, CHF, PPM/ICD, loop recorder since 2012 that is MRI compatible, IDDM type 2, sepsis left foot ulcer, afib, ESRD with complications on HD TTS, hypertension, AOCD and GERD who presented to the ED with hypotensive after intubation in the emergency room. Still intubated, diagnosed with fluid overload, pleural effusion. Patient has had recurrent admission in the hospital for similar reason and was recently discharged from the hospital following treatment of Severe Sepsis due to Necrotizing Unstagable sacral decubitus ulcer with ostemomylitis, expected to complete abx on discharge till 02/16/19. Trach and peg done and LTAC transfer with anticipated longer weaning process and wound care management. HR control improved with change in BB. Acute respiratory failure on mechanical ventilator >96 hrs - Currently on trach placed on 03/03 Pulm consult appreciated weaning trial VAP BUNDLE ASPIRATION BUNDLE Acute pulmonary edema, fluid overload on CXR repeat xray intermittently Dialysis Dilated CMP Continue diuresis Acute encephalopathy, probably metabolic or toxic Continues on Mechanical ventilator. ESRD on hemodialysis nephrology following Vascular eval. done re: LUE AV graft, see note Bilateral pleural effusions Anticipate improvement with Permanent atrial fibrillation and flutter Not on anticoagulation because of anemia thrombocytopenia Change noted to BB agent to IV. Diabetes mellitus type 2 Fingerstick Q4h NSTEMI type 2 Cardiology following Schizophrenia Legally blind supportive care hypertension Monitor BP Hypokalemia repeat in am Cardiomyiopathy EF 35-40% Pulmonary hypertension Dysphagia s/p PEG tube Sacral decub ulcer Wound Nurse consulted Severe malnutrition /hypoalbuminemia with FTT: 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, leacher following PEG placed on 01/02/19 decubitus ulcer at his post colostomy wound care consult History of sacral osteomyelitis and LE ulcers Completed Antibiotics Place on contact isolation for ESBL Klebsiella pneumonia on wound culture 01/02/19 Schizophrenia h/o Peripheral neuropathy: Continue gabapentin Pulm HTN Anemia of chronic disease -s/p total of 8 units PRBC, follow cbc- no occult GI bleed noted. -Pt is s/p x1 DDVAP RUL atelectasis, probably mucous plugging DVT prophylaxis Lovenox Full code status poor prognosis The high probability of a clinically significant, sudden or life threatening deterioration of the [pulmonary, neuro, renal] system(s) required my full and direct attention, intervention and personal management. The aggregate critical care time was [35] minutes. This time is in addition to time spent performing reported procedures but includes the following: [x] Data Review and interpretation [x] Patient assessment and monitoring of vital signs [] Documentation [x] Medication orders and management History Interval history: Patient was seen and evaluated this morning, Patient is on trach. Patient follow simple commands. Hospitalist Physical - Physical exam Narrative exam: Patient is on trach and PEG The patient appeared well nourished and normally developed. Vital signs as documented. Head exam is unremarkable. No scleral icterus . Neck is without jugular venous distension, thyromegaly, or carotid bruits. Lungs are clear to auscultation. Cardiac exam reveals regular rate and Rhythm. First and second heart sounds normal. No murmurs, rubs or gallops. Abdominal exam reveals PEG tube in place, colostomy bag in place. Extremities are nonedematous and both femoral and pedal pulses are normal. FRESCO ARTIST: Patient follow simple commands. - Constitutional Vitals: Temp Pulse Resp BP Pulse Ox 98.0 F 111 H 21 138/61 94 03/05/19 12:00 03/05/19 13:57 03/05/19 13:57 03/05/19 13:57 03/05/19 13:57 General appearance: Present: no acute distress Results - Labs CBC & Chem 7: 03/04/19 05:40 03/04/19 05:40 Labs: Laboratory Last Values WBC 6.8 K/mm3 (4.5-11.0) 03/04/19 05:40 RBC 2.63 M/mm3 (3.65-5.03) L 03/04/19 05:40 Hgb 7.2 gm/dl (11.8-15.2) L 03/04/19 05:40 Hct 22.2 % (35.5-45.6) L 03/04/19 05:40 MCV 84 fl (84-94) 03/04/19 05:40 MCH 28 pg (28-32) 03/04/19 05:40 MCHC 33 % (32-34) 03/04/19 05:40 RDW 20.2 % (13.2-15.2) H 03/04/19 05:40 Plt Count 233 K/mm3 (140-440) 03/04/19 05:40 Lymph % (Auto) 10.5 % (13.4-35.0) L 03/04/19 05:40 [place] % (Auto) 7.2 % (0.0-7.3) 03/04/19 05:40 Eos % (Auto) 4.6 % (0.0-4.3) H 03/04/19 05:40 Baso % (Auto) 0.8 % (0.0-1.8) 03/04/19 05:40 Lymph # 0.7 K/mm3 (1.2-5.4) L 03/04/19 05:40 [place] # 0.5 K/mm3 (0.0-0.8) 03/04/19 05:40 Eos # 0.3 K/mm3 (0.0-0.4) 03/04/19 05:40 Baso # 0.1 K/mm3 (0.0-0.1) 03/04/19 05:40 Seg Neutrophils % 76.9 % (40.0-70.0) H 03/04/19 05:40 Seg Neutrophils # 5.2 K/mm3 (1.8-7.7) 03/04/19 05:40 PT 16.3 Sec. (12.2-14.9) H 03/01/19 09:39 INR 1.35 (0.87-1.13) H 03/01/19 09:39 APTT 33.7 Sec. (24.2-36.6) 02/21/19 18:30 2987.82 ng/mlDDU (0-234) H 02/22/19 05:54 POC ABG pH 7.483 (7.35-7.45) H 02/27/19 04:35 POC ABG pCO2 37.5 (35-45) 02/27/19 04:35 POC ABG pO2 61 (80-105) L 02/27/19 04:35 POC ABG HCO3 28.1 (22-26 mml/L) 02/27/19 04:35 POC ABG Total CO2 29 (23-27mmol/L) 02/27/19 04:35 POC ABG O2 Sat 93 02/27/19 04:35 POC ABG Base Excess 5 ((-2) - (+3)mmol/L) 02/27/19 04:35 30 % 02/27/19 04:35 Sodium 142 mmol/L (137-145) 03/04/19 05:40 Potassium 4.4 mmol/L (3.6-5.0) 03/04/19 05:40 Chloride 101.2 mmol/L (98-107) 03/04/19 05:40 Carbon Dioxide 30 mmol/L (22-30) 03/04/19 05:40 15 mmol/L 03/04/19 05:40 BUN 34 mg/dL (9-20) H 03/04/19 05:40 2.7 mg/dL (0.8-1.5) H 03/04/19 05:40 Estimated GFR 29 ml/min 03/04/19 05:40 13 % 03/04/19 05:40 Glucose 114 mg/dL (75-100) H 03/04/19 05:40 POC Glucose 135 (70-105) H 03/05/19 12:08 Lactic Acid 1.00 mmol/L (0.7-2.0) 02/21/19 20:58 Calcium 9.8 mg/dL (8.4-10.2) 03/04/19 05:40 Phosphorus 2.30 mg/dL (2.5-4.5) L 03/02/19 05:15 Magnesium 2.20 mg/dL (1.7-2.3) 03/02/19 05:15 0.20 mg/dL (0.1-1.2) 02/21/19 18:30 AST 17 units/L (5-40) 02/21/19 18:30 ALT 7 units/L (7-56) 02/21/19 18:30 136 units/L (35-129) H 02/21/19 18:30 28.0 umol/L (25-60) 02/21/19 20:04 64 units/L (55-170) 02/22/19 03:42 CK-MB (CK-2) 3.7 ng/mL (0.0-4.0) 02/22/19 03:42 CK-MB (CK-2) Rel Index 5.7 (0-4) H 02/22/19 03:42 0.193 ng/mL (0.00-0.029) H* 02/22/19 03:42 6.7 g/dL (6.3-8.2) 02/21/19 18:30 2.4 g/dL (3.9-5) L 02/21/19 18:30 0.6 % 02/21/19 18:30 Triglycerides 51 mg/dL (2-149) 02/21/19 18:30 Cholesterol 82 mg/dL (50-199) 02/21/19 18:30 36 mg/dL (50-130) L 02/21/19 18:30 40 mg/dL (40-59) 02/21/19 18:30 2.05 % 02/21/19 18:30 TSH 2.760 mlU/mL (0.270-4.200) 02/21/19 20:04 PTH Intact 267.6 pg/mL (15-65) H 03/02/19 05:15 Salicylates < 0.3 mg/dL (2.8-20.0) L 02/21/19 20:04 Acetaminophen < 5.0 ug/mL (10.0-30.0) L 02/21/19 20:04 Hepatitis A IgM Ab Non-reactive (NonReactive) 02/23/19 11:20 Hep Bs Antigen Non-reactive (Negative) 02/23/19 11:20 Hep B Core IgM Ab Non-reactive (NonReactive) 02/23/19 11:20 Non-reactive (NonReactive) 02/23/19 11:20 Active Medications - Current Medications Current Medications: Generic Name Dose Route Start Last Admin Trade Name Freq PRN Reason Stop Dose Admin Acetaminophen 650 mg 02/21/19 22:19 03/05/19 08:16 Tylenol PO 650 mg Q4H PRN Administration Pain MILD(1-3)/Fever >100.5/HILL Albuterol/Ipratropium 1 ampul 02/24/19 20:00 03/05/19 13:55 Duoneb *Not For Prn Use* IH 1 ampul TIDRT SANCHEZ Administration Lipase/Protease/Amylase 1 each 02/23/19 15:09 [place] 10,500 Unit FEEDTUBE PRN PRN For Clogged Feeding Tube Lipase/Protease/Amylase 1 each 03/05/19 14:04 [place] 10,500 Unit FEEDTUBE PRN PRN For Clogged Feeding Tube Dextrose 50 ml 02/21/19 22:22 03/03/19 17:37 D50w (25gm) Syringe IV 50 ml PRN PRN Administration Hypoglycemia Famotidine 20 mg 02/23/19 10:00 03/05/19 09:55 Pepcid PO 20 mg DAILY SANCHEZ Administration Heparin Sodium (Porcine) 5,000 unit 03/04/19 22:00 03/05/19 09:56 Heparin SUB-Q 5,000 unit Q12HR SANCHEZ Administration Hydrophilic Ointment 1 applic 02/21/19 18:24 03/05/19 08:16 Vaseline Lip Therapy TP 1 applic Q2HR PRN Administration Dry Lips Sodium Chloride 100 mls @ 999 mls/hr 02/26/19 09:00 Nacl 0.9% IV UMA PRN Hypotension Insulin Human Regular 0 units 02/26/19 12:00 03/05/19 12:04 Humulin R SUB-Q Not Given Q6HR [facility] Protocol Metoprolol Tartrate 2.5 mg 02/28/19 12:06 03/01/19 10:32 Lopressor IV 2.5 mg Q4HR PRN Administration Tachycardia Metoprolol Tartrate 25 mg 03/02/19 14:00 03/05/19 08:16 Lopressor PO 25 mg TID SANCHEZ Administration Multi-Ingred Cream/Lotion/Oil/Oint 1 applic 02/21/19 18:24 Artificial Tears Ophth Oint OU Q4HR PRN Dry Eye(s) Ondansetron HCl 4 mg 02/21/19 22:19 Zofran IV Q8H PRN Nausea And Vomiting Risperidone 1 mg 02/25/19 13:00 03/05/19 09:56 Risperdal PO 1 mg DAILY SANCHEZ Administration Sertraline HCl 100 mg 02/25/19 13:00 03/05/19 09:55 Zoloft PO 100 mg DAILY SANCHEZ Administration Simple Syrup 15 ml 02/23/19 15:09 Simple Syrup FEEDTUBE PRN PRN Hypoglycemia Simple Syrup 30 ml 02/23/19 15:09 Simple Syrup FEEDTUBE PRN PRN Hypoglycemia Simple Syrup 15 ml 03/05/19 14:04 Simple Syrup FEEDTUBE PRN PRN Hypoglycemia Simple Syrup 30 ml 03/05/19 14:04 Simple Syrup FEEDTUBE PRN PRN Hypoglycemia Sodium Bicarbonate 325 mg 02/23/19 15:09 Sodium Bicarbonate FEEDTUBE PRN PRN For Clogged Feeding Tube Sodium Bicarbonate 325 mg 03/05/19 14:04 Sodium Bicarbonate FEEDTUBE PRN PRN For Clogged Feeding Tube Sodium Chloride 10 ml 02/22/19 10:00 03/05/19 09:57 Sodium Chloride Flush Syringe 10 Ml IV 10 ml BID SANCHEZ Administration Sodium Chloride 10 ml 02/21/19 22:19 02/24/19 22:00 Sodium Chloride Flush Syringe 10 Ml IV 10 ml PRN PRN Administration LINE FLUSH Tramadol HCl 50 mg 03/05/19 10:08 03/05/19 12:04 Ultram PO 50 mg Q6H PRN Administration Pain, Moderate (4-6) Nutrition/Malnutrition Assess - Dietary Evaluation Nutrition/Malnutrition Findings: Nutrition Notes Start: 02/22/19 12:51 Freq: Status: Active Protocol: Document 03/05/19 13:59 RM (Rec: 03/05/19 14:02 RM [id number]) Nutrition Notes Initial or Follow up Reassessment Current Diagnosis Diabetes,Hypertension Other Pertinent Diagnosis Sacral PU, ESRD on HD (T/Thurs /Sat), Schizophrenia,Blind in L eye,S/P trach Current Diet NPO after midnight Labs/Tests Reviewed Pertinent Medications Reviewed Height 5 ft 10 in Weight 88.7 kg [place] Body Weight (kg) 75.45 BMI 28.0 Subjective/Other Information Trach placed yesterday. Observed Vital 1.2 infusing at goal rate. Per nurse pt is tolerating TF. Percent of energy/protein needs met: 100%/100% Burn Absent Trauma Absent #2 Nutrition Diagnosis Increased nutrient needs ( specify in comment below) Diagnosis Progress(for reassessment Continues documentation) #1 Nutrition Diagnosis Inadequate oral intake Diagnosis Progress(for reassessment Continues documentation) Is patient on ventilator? Yes Is Patient Ambulatory and/or Out of Bed No REE-([facility]-confined to bed) 2023.976 Kcal/Kg value to use for calculation 18 Approximate Energy Requirements Using 1597 kcal/Kg Calculation Used for Recommendations Kcal/kg Additional Notes Protein Needs: 106-177g (1.2- 2g/kg) Fluid Needs: 1 ml/kcal Nutrition Intervention Nutrition Support: Vital 1.2 at 70 ml/hr Water flush of 100 mls q 4 hrs Kcal 2,016 Protein (gm) 126 Fluid (mL) 1,362 Add Supplement/Snack (indicate name/kcal Abhilash BID /protein ) Provides kCal: 190 Provides Protein (gm) 5 Goal #1 TF tolerance Goal #2 Continue to meet at least 80% of calorie and protein needs via TF Anticipated Discharge Needs: Unable to determine at this time Follow-Up By: 03/13/19 Additional Comments Follow for TF tolerance
[2019-03-06] MEDS: INSULIN REGULAR, HUMAN 100 UNITS/1 ML SUB-Q SCH ×4 (06:00→18:52)
[2019-03-06] MEDS: IPRATROPIUM/ALBUTEROL SULFATE 3 ML AMPUL.NEB IH SCH ×3 (08:01→20:40)
[2019-03-06] MEDS: METOPROLOL TARTRATE 25 MG TAB PO SCH ×3 (10:58→22:29)
[2019-03-06] MEDS: SERTRALINE 100 MG TAB PO SCH (10:59)
[2019-03-06] MEDS: risperiDONE 1 MG TAB PO SCH (10:59)
[2019-03-06] MEDS: traMADol 50 MG TAB PO PRN (10:59)
[2019-03-06] MEDS: FAMOTIDINE 20 MG TAB PO SCH (10:59)
[2019-03-06] MEDS: HEPARIN 5,000 UNIT/1 ML VIAL SUB-Q SCH ×2 (11:01→22:26)
--- NOTE | 2019-03-06 12:59 | Progress Note ---
Assessment and Plan Imp: 1. Acute encephalopathy, probably metabolic or toxic 2. A/C systolic CHF 3. Dilated CMP 4. Pulm HTN 5. ESRD 6. RUL atelectasis, probably mucous plugging Rec: 1. Chest PT with Melchor tristan; f/u CXR in AM and add back Mucomyst nebs/Mucinex if continued atelectasis 2. Daily PSV 3. Avoid sedatives; resumed psych meds 4. DVT and GI PPx 5. TFs per PEG 6. Vascular eval. done re: LUE AV graft; possibly pull PC prior to d/c 7. HD per renal 8. Await LTAC; poor long-term prognosis CCT 31 minutes No family present Subjective Date of service: 03/06/19 Principal diagnosis: respiratory failure Interval history: No events. Arousable. Follows commands. Tolerating PSV 12/6 adequately. Unable to give history. Active Medications Acetaminophen (Tylenol) 650 mg PO Q4H PRN PRN Reason: Pain MILD(1-3)/Fever >100.5/HILL Last Admin: 03/05/19 08:16 Dose: 650 mg Documented by: Albuterol/Ipratropium (Duoneb *Not For Prn Use*) 1 ampul IH TIDRT [facility] Last Admin: 03/06/19 14:59 Dose: 1 ampul Documented by: Lipase/Protease/Amylase ([place] 10,500 Unit) 1 each FEEDTUBE PRN PRN PRN Reason: For Clogged Feeding Tube Dextrose (D50w (25gm) Syringe) 50 ml IV PRN PRN PRN Reason: Hypoglycemia Last Admin: 03/03/19 17:37 Dose: 50 ml Documented by: Famotidine (Pepcid) 20 mg PO DAILY [facility] Last Admin: 03/06/19 10:59 Dose: 20 mg Documented by: Heparin Sodium (Porcine) (Heparin) 5,000 unit SUB-Q Q12HR [facility] Last Admin: 03/06/19 11:01 Dose: 5,000 unit Documented by: Hydrophilic Ointment (Vaseline Lip Therapy) 1 applic TP Q2HR PRN PRN Reason: Dry Lips Last Admin: 03/05/19 08:16 Dose: 1 applic Documented by: Sodium Chloride (Nacl 0.9%) 100 mls @ 999 mls/hr IV UMA PRN PRN Reason: Hypotension Insulin Human Regular (Humulin R) 0 units SUB-Q Q6HR [facility]; Protocol Last Admin: 03/06/19 18:52 Dose: Not Given Documented by: Metoprolol Tartrate (Lopressor) 2.5 mg IV Q4HR PRN PRN Reason: Tachycardia Last Admin: 03/01/19 10:32 Dose: 2.5 mg Documented by: Metoprolol Tartrate (Lopressor) 25 mg PO TID [facility] Last Admin: 03/06/19 18:51 Dose: Not Given Documented by: Multi-Ingred Cream/Lotion/Oil/Oint (Artificial Tears Ophth Oint) 1 applic OU Q4HR PRN PRN Reason: Dry Eye(s) Ondansetron HCl (Zofran) 4 mg IV Q8H PRN PRN Reason: Nausea And Vomiting Risperidone (Risperdal) 1 mg PO DAILY [facility] Last Admin: 03/06/19 10:59 Dose: 1 mg Documented by: Sertraline HCl (Zoloft) 100 mg PO DAILY [facility] Last Admin: 03/06/19 10:59 Dose: 100 mg Documented by: Simple Syrup (Simple Syrup) 15 ml FEEDTUBE PRN PRN PRN Reason: Hypoglycemia Simple Syrup (Simple Syrup) 30 ml FEEDTUBE PRN PRN PRN Reason: Hypoglycemia Sodium Bicarbonate (Sodium Bicarbonate) 325 mg FEEDTUBE PRN PRN PRN Reason: For Clogged Feeding Tube Sodium Chloride (Sodium Chloride Flush Syringe 10 Ml) 10 ml IV BID [facility] Last Admin: 03/06/19 11:01 Dose: 10 ml Documented by: Sodium Chloride (Sodium Chloride Flush Syringe 10 Ml) 10 ml IV PRN PRN PRN Reason: LINE FLUSH Last Admin: 02/24/19 22:00 Dose: 10 ml Documented by: Tramadol HCl (Ultram) 50 mg PO Q6H PRN PRN Reason: Pain, Moderate (4-6) Last Admin: 03/06/19 10:59 Dose: 50 mg Documented by: Objective Vital Signs - 12hr 03/06/19 03/06/19 03/06/19 01:00 02:00 03:00 Temperature Pulse Rate 112 H 111 H 84 Pulse Rate [ Anterior Bilateral Throughout] Pulse Rate [ Throughout] Respiratory Rate Respiratory Rate [Anterior Bilateral Throughout] Respiratory Rate [ Throughout] Blood Pressure 127/66 127/65 122/57 O2 Sat by Pulse 98 97 97 Oximetry O2 Sat by Pulse Oximetry [ Assessment] 03/06/19 03/06/19 03/06/19 03:17 03:58 04:00 Temperature 97.9 F Pulse Rate 84 112 H Pulse Rate [ Anterior Bilateral Throughout] Pulse Rate [ Throughout] Respiratory Rate Respiratory Rate [Anterior Bilateral Throughout] Respiratory Rate [ Throughout] Blood Pressure 126/69 126/69 O2 Sat by Pulse 97 97 Oximetry O2 Sat by Pulse Oximetry [ Assessment] 03/06/19 03/06/19 03/06/19 04:04 05:01 06:01 Temperature Pulse Rate 110 H 83 Pulse Rate [ Anterior Bilateral Throughout] Pulse Rate [ Throughout] Respiratory 12 Rate Respiratory Rate [Anterior Bilateral Throughout] Respiratory Rate [ Throughout] Blood Pressure 120/66 120/66 O2 Sat by Pulse 100 98 Oximetry O2 Sat by Pulse 97 Oximetry [ Assessment] 03/06/19 03/06/19 03/06/19 07:01 08:00 08:02 Temperature 97.9 F Pulse Rate 82 83 83 Pulse Rate [ 83 Anterior Bilateral Throughout] Pulse Rate [ 83 Throughout] Respiratory 10 L 9 L Rate Respiratory 9 L Rate [Anterior Bilateral Throughout] Respiratory 9 L Rate [ Throughout] Blood Pressure 120/66 112/61 112/61 O2 Sat by Pulse 96 98 98 Oximetry O2 Sat by Pulse Oximetry [ Assessment] 03/06/19 03/06/19 03/06/19 09:00 10:00 10:01 Temperature Pulse Rate 83 82 82 Pulse Rate [ Anterior Bilateral Throughout] Pulse Rate [ Throughout] Respiratory 12 0 L 15 Rate Respiratory Rate [Anterior Bilateral Throughout] Respiratory Rate [ Throughout] Blood Pressure 114/61 138/64 138/64 O2 Sat by Pulse 98 99 96 Oximetry O2 Sat by Pulse Oximetry [ Assessment] 03/06/19 03/06/19 03/06/19 10:58 11:00 12:00 Temperature Pulse Rate 82 81 Pulse Rate [ Anterior Bilateral Throughout] Pulse Rate [ Throughout] Respiratory 20 0 L Rate Respiratory Rate [Anterior Bilateral Throughout] Respiratory Rate [ Throughout] Blood Pressure 120/60 121/64 111/59 O2 Sat by Pulse 97 98 Oximetry O2 Sat by Pulse Oximetry [ Assessment] 03/06/19 12:19 Temperature Pulse Rate 80 Pulse Rate [ Anterior Bilateral Throughout] Pulse Rate [ Throughout] Respiratory 21 Rate Respiratory Rate [Anterior Bilateral Throughout] Respiratory Rate [ Throughout] Blood Pressure 111/59 O2 Sat by Pulse 98 Oximetry O2 Sat by Pulse 97 Oximetry [ Assessment] Constitutional: alert, other (critically ill on vent) Eyes: non-icteric Effort: normal Ascultation: Bilateral: other (coarse BS bilaterally) Cardiovascular: regular rate and rhythm (no mrg) Gastrointestinal: normoactive bowel sounds, soft, non-tender, non-distended Extremities: no edema, pink and warm Neurologic: other (mild weakness LUE, o/w nonfocal) Psychiatric: mood appropriate, affect normal CBC and BMP: 03/04/19 05:40 03/04/19 05:40 ABG, PT/INR, D-dimer: ABG POC ABG pH 7.483 (7.35-7.45) H 02/27/19 04:35 POC ABG pCO2 37.5 (35-45) 02/27/19 04:35 POC ABG pO2 61 (80-105) L 02/27/19 04:35 POC ABG HCO3 28.1 (22-26 mml/L) 02/27/19 04:35 POC ABG Total CO2 29 (23-27mmol/L) 02/27/19 04:35 POC ABG O2 Sat 93 02/27/19 04:35 PT/INR, D-dimer PT 16.3 Sec. (12.2-14.9) H 03/01/19 09:39 INR 1.35 (0.87-1.13) H 03/01/19 09:39 2987.82 ng/mlDDU (0-234) H 02/22/19 05:54 Abnormal lab findings: Abnormal Labs 02/21/19 02/21/19 02/21/19 18:30 18:30 18:30 RBC 3.26 L Hgb 8.8 L Hct 29.0 L MCH 27 L MCHC 30 L RDW 19.1 H Lymph % (Auto) 6.1 L [place] % (Auto) Eos % (Auto) Lymph # 0.4 L Eos # Seg Neutrophils % 86.2 H PT INR D-Dimer POC ABG pH POC ABG pCO2 POC ABG pO2 Sodium 133 L Potassium 3.3 L Chloride 93.1 L Carbon Dioxide 33 H BUN Creatinine Glucose 161 H POC Glucose Phosphorus Alkaline Phosphatase 136 H Total Creatine Kinase 37 L CK-MB (CK-2) Rel Index Troponin T 0.192 H* Albumin 2.4 L LDL Cholesterol Direct 36 L PTH Intact Salicylates Acetaminophen 02/21/19 02/21/19 02/21/19 18:42 20:04 20:04 RBC Hgb Hct MCH MCHC RDW Lymph % (Auto) [place] % (Auto) Eos % (Auto) Lymph # Eos # Seg Neutrophils % PT INR D-Dimer POC ABG pH POC ABG pCO2 56.7 H POC ABG pO2 291 H Sodium Potassium Chloride Carbon Dioxide BUN Creatinine Glucose POC Glucose Phosphorus Alkaline Phosphatase Total Creatine Kinase CK-MB (CK-2) Rel Index Troponin T Albumin LDL Cholesterol Direct PTH Intact Salicylates < 0.3 L Acetaminophen < 5.0 L 02/21/19 02/22/19 02/22/19 22:35 03:42 03:42 RBC 3.20 L Hgb 8.8 L Hct 27.6 L MCH MCHC RDW 18.9 H Lymph % (Auto) 7.4 L [place] % (Auto) Eos % (Auto) Lymph # 0.7 L Eos # Seg Neutrophils % 84.7 H PT INR D-Dimer POC ABG pH POC ABG pCO2 POC ABG pO2 Sodium 134 L Potassium 2.6 L* D Chloride Carbon Dioxide BUN Creatinine Glucose POC Glucose Phosphorus Alkaline Phosphatase Total Creatine Kinase CK-MB (CK-2) Rel Index 5.2 H Troponin T 0.202 H* Albumin LDL Cholesterol Direct PTH Intact Salicylates Acetaminophen 02/22/19 02/22/19 02/22/19 03:42 05:54 09:04 RBC Hgb Hct MCH MCHC RDW Lymph % (Auto) [place] % (Auto) Eos % (Auto) Lymph # Eos # Seg Neutrophils % PT INR D-Dimer 2987.82 H POC ABG pH 7.451 H POC ABG pCO2 POC ABG pO2 Sodium Potassium Chloride Carbon Dioxide BUN Creatinine Glucose POC Glucose Phosphorus Alkaline Phosphatase Total Creatine Kinase CK-MB (CK-2) Rel Index 5.7 H Troponin T 0.193 H* Albumin LDL Cholesterol Direct PTH Intact Salicylates Acetaminophen 02/22/19 02/22/19 02/23/19 10:36 23:56 00:52 RBC Hgb Hct MCH MCHC RDW Lymph % (Auto) [place] % (Auto) Eos % (Auto) Lymph # Eos # Seg Neutrophils % PT INR D-Dimer POC ABG pH POC ABG pCO2 POC ABG pO2 Sodium Potassium 3.1 L Chloride Carbon Dioxide BUN Creatinine Glucose POC Glucose 58 L 111 H Phosphorus Alkaline Phosphatase Total Creatine Kinase CK-MB (CK-2) Rel Index Troponin T Albumin LDL Cholesterol Direct PTH Intact Salicylates Acetaminophen 02/23/19 02/23/19 02/23/19 05:00 06:35 14:26 RBC Hgb Hct MCH MCHC RDW Lymph % (Auto) [place] % (Auto) Eos % (Auto) Lymph # Eos # Seg Neutrophils % PT INR D-Dimer POC ABG pH POC ABG pCO2 POC ABG pO2 Sodium 135 L Potassium 3.1 L Chloride Carbon Dioxide BUN 21 H Creatinine 2.0 H Glucose 57 L POC Glucose 64 L 62 L Phosphorus Alkaline Phosphatase Total Creatine Kinase CK-MB (CK-2) Rel Index Troponin T Albumin LDL Cholesterol Direct PTH Intact Salicylates Acetaminophen 02/24/19 02/24/19 02/24/19 02:11 04:12 04:55 RBC 2.84 L Hgb 7.8 L Hct 24.5 L MCH MCHC RDW 19.5 H Lymph % (Auto) [place] % (Auto) Eos % (Auto) Lymph # Eos # Seg Neutrophils % PT INR D-Dimer POC ABG pH 7.511 H POC ABG pCO2 33.9 L POC ABG pO2 62 L Sodium Potassium Chloride Carbon Dioxide BUN Creatinine Glucose POC Glucose 69 L Phosphorus Alkaline Phosphatase Total Creatine Kinase CK-MB (CK-2) Rel Index Troponin T Albumin LDL Cholesterol Direct PTH Intact Salicylates Acetaminophen 02/24/19 02/24/19 02/25/19 04:55 05:41 04:45 RBC Hgb Hct MCH MCHC RDW Lymph % (Auto) [place] % (Auto) Eos % (Auto) Lymph # Eos # Seg Neutrophils % PT INR D-Dimer POC ABG pH 7.466 H POC ABG pCO2 POC ABG pO2 75 L Sodium Potassium Chloride Carbon Dioxide BUN Creatinine 1.8 H Glucose 73 L POC Glucose 127 H Phosphorus Alkaline Phosphatase Total Creatine Kinase CK-MB (CK-2) Rel Index Troponin T Albumin LDL Cholesterol Direct PTH Intact Salicylates Acetaminophen 02/25/19 02/25/19 02/26/19 16:34 21:33 03:45 RBC 2.96 L Hgb 8.0 L Hct 25.8 L MCH 27 L MCHC 31 L RDW 20.0 H Lymph % (Auto) [place] % (Auto) Eos % (Auto) Lymph # Eos # Seg Neutrophils % PT INR D-Dimer POC ABG pH POC ABG pCO2 POC ABG pO2 Sodium Potassium Chloride Carbon Dioxide BUN Creatinine Glucose POC Glucose 141 H 106 H Phosphorus Alkaline Phosphatase Total Creatine Kinase CK-MB (CK-2) Rel Index Troponin T Albumin LDL Cholesterol Direct PTH Intact Salicylates Acetaminophen 02/26/19 02/26/19 02/26/19 03:45 04:13 07:53 RBC Hgb Hct MCH MCHC RDW Lymph % (Auto) [place] % (Auto) Eos % (Auto) Lymph # Eos # Seg Neutrophils % PT INR D-Dimer POC ABG pH 7.470 H POC ABG pCO2 POC ABG pO2 Sodium Potassium Chloride Carbon Dioxide BUN Creatinine 1.8 H Glucose POC Glucose 110 H Phosphorus Alkaline Phosphatase Total Creatine Kinase CK-MB (CK-2) Rel Index Troponin T Albumin LDL Cholesterol Direct PTH Intact Salicylates Acetaminophen 02/26/19 02/26/19 02/27/19 11:56 17:43 00:12 RBC Hgb Hct MCH MCHC RDW Lymph % (Auto) [place] % (Auto) Eos % (Auto) Lymph # Eos # Seg Neutrophils % PT INR D-Dimer POC ABG pH POC ABG pCO2 POC ABG pO2 Sodium Potassium Chloride Carbon Dioxide BUN Creatinine Glucose POC Glucose 112 H 127 H 127 H Phosphorus Alkaline Phosphatase Total Creatine Kinase CK-MB (CK-2) Rel Index Troponin T Albumin LDL Cholesterol Direct PTH Intact Salicylates Acetaminophen 02/27/19 02/27/19 02/27/19 04:35 13:15 18:02 RBC Hgb Hct MCH MCHC RDW Lymph % (Auto) [place] % (Auto) Eos % (Auto) Lymph # Eos # Seg Neutrophils % PT INR D-Dimer POC ABG pH 7.483 H POC ABG pCO2 POC ABG pO2 61 L Sodium Potassium Chloride Carbon Dioxide BUN Creatinine Glucose POC Glucose 143 H 106 H Phosphorus Alkaline Phosphatase Total Creatine Kinase CK-MB (CK-2) Rel Index Troponin T Albumin LDL Cholesterol Direct PTH Intact Salicylates Acetaminophen 02/28/19 02/28/19 02/28/19 05:50 11:59 17:52 RBC Hgb Hct MCH MCHC RDW Lymph % (Auto) [place] % (Auto) Eos % (Auto) Lymph # Eos # Seg Neutrophils % PT INR D-Dimer POC ABG pH POC ABG pCO2 POC ABG pO2 Sodium Potassium Chloride Carbon Dioxide BUN Creatinine Glucose POC Glucose 134 H 128 H 142 H Phosphorus Alkaline Phosphatase Total Creatine Kinase CK-MB (CK-2) Rel Index Troponin T Albumin LDL Cholesterol Direct PTH Intact Salicylates Acetaminophen 02/28/19 03/01/19 03/01/19 23:13 05:40 09:39 RBC Hgb Hct MCH MCHC RDW Lymph % (Auto) [place] % (Auto) Eos % (Auto) Lymph # Eos # Seg Neutrophils % PT 16.3 H INR 1.35 H D-Dimer POC ABG pH POC ABG pCO2 POC ABG pO2 Sodium Potassium Chloride Carbon Dioxide BUN Creatinine Glucose POC Glucose 112 H 111 H Phosphorus Alkaline Phosphatase Total Creatine Kinase CK-MB (CK-2) Rel Index Troponin T Albumin LDL Cholesterol Direct PTH Intact Salicylates Acetaminophen 03/01/19 03/01/19 03/01/19 11:56 13:54 17:59 RBC Hgb Hct MCH MCHC RDW Lymph % (Auto) [place] % (Auto) Eos % (Auto) Lymph # Eos # Seg Neutrophils % PT INR D-Dimer POC ABG pH POC ABG pCO2 POC ABG pO2 Sodium Potassium Chloride Carbon Dioxide BUN 33 H Creatinine 2.8 H D Glucose 176 H POC Glucose 199 H 147 H Phosphorus Alkaline Phosphatase Total Creatine Kinase CK-MB (CK-2) Rel Index Troponin T Albumin LDL Cholesterol Direct PTH Intact Salicylates Acetaminophen 03/02/19 03/02/19 03/02/19 05:15 05:15 05:15 RBC 2.73 L Hgb 7.4 L Hct 23.0 L MCH 27 L MCHC RDW 19.9 H Lymph % (Auto) [place] % (Auto) 7.9 H Eos % (Auto) 7.6 H Lymph # 1.0 L Eos # 0.5 H Seg Neutrophils % PT INR D-Dimer POC ABG pH POC ABG pCO2 POC ABG pO2 Sodium Potassium Chloride Carbon Dioxide BUN 43 H Creatinine 3.2 H Glucose POC Glucose Phosphorus 2.30 L Alkaline Phosphatase Total Creatine Kinase CK-MB (CK-2) Rel Index Troponin T Albumin LDL Cholesterol Direct PTH Intact 267.6 H Salicylates Acetaminophen 03/02/19 03/02/19 03/03/19 12:32 18:20 13:30 RBC Hgb Hct MCH MCHC RDW Lymph % (Auto) [place] % (Auto) Eos % (Auto) Lymph # Eos # Seg Neutrophils % PT INR D-Dimer POC ABG pH POC ABG pCO2 POC ABG pO2 Sodium Potassium Chloride 97.3 L Carbon Dioxide BUN 26 H Creatinine 2.2 H Glucose 73 L POC Glucose 111 H 156 H Phosphorus Alkaline Phosphatase Total Creatine Kinase CK-MB (CK-2) Rel Index Troponin T Albumin LDL Cholesterol Direct PTH Intact Salicylates Acetaminophen 03/04/19 03/04/19 03/04/19 00:02 05:37 05:40 RBC 2.63 L Hgb 7.2 L Hct 22.2 L MCH MCHC RDW 20.2 H Lymph % (Auto) 10.5 L [place] % (Auto) Eos % (Auto) 4.6 H Lymph # 0.7 L Eos # Seg Neutrophils % 76.9 H PT INR D-Dimer POC ABG pH POC ABG pCO2 POC ABG pO2 Sodium Potassium Chloride Carbon Dioxide BUN Creatinine Glucose POC Glucose 136 H 123 H Phosphorus Alkaline Phosphatase Total Creatine Kinase CK-MB (CK-2) Rel Index Troponin T Albumin LDL Cholesterol Direct PTH Intact Salicylates Acetaminophen 03/04/19 03/04/19 03/04/19 05:40 11:39 23:20 RBC Hgb Hct MCH MCHC RDW Lymph % (Auto) [place] % (Auto) Eos % (Auto) Lymph # Eos # Seg Neutrophils % PT INR D-Dimer POC ABG pH POC ABG pCO2 POC ABG pO2 Sodium Potassium Chloride Carbon Dioxide BUN 34 H Creatinine 2.7 H Glucose 114 H POC Glucose 175 H 151 H Phosphorus Alkaline Phosphatase Total Creatine Kinase CK-MB (CK-2) Rel Index Troponin T Albumin LDL Cholesterol Direct PTH Intact Salicylates Acetaminophen 03/05/19 03/05/19 03/05/19 05:37 12:08 17:11 RBC Hgb Hct MCH MCHC RDW Lymph % (Auto) [place] % (Auto) Eos % (Auto) Lymph # Eos # Seg Neutrophils % PT INR D-Dimer POC ABG pH POC ABG pCO2 POC ABG pO2 Sodium Potassium Chloride Carbon Dioxide BUN Creatinine Glucose POC Glucose 134 H 135 H 135 H Phosphorus Alkaline Phosphatase Total Creatine Kinase CK-MB (CK-2) Rel Index Troponin T Albumin LDL Cholesterol Direct PTH Intact Salicylates Acetaminophen 03/06/19 00:16 RBC Hgb Hct MCH MCHC RDW Lymph % (Auto) [place] % (Auto) Eos % (Auto) Lymph # Eos # Seg Neutrophils % PT INR D-Dimer POC ABG pH POC ABG pCO2 POC ABG pO2 Sodium Potassium Chloride Carbon Dioxide BUN Creatinine Glucose POC Glucose 117 H Phosphorus Alkaline Phosphatase Total Creatine Kinase CK-MB (CK-2) Rel Index Troponin T Albumin LDL Cholesterol Direct PTH Intact Salicylates Acetaminophen Chest x-ray: report reviewed, image reviewed (RUL atelectasis)
--- NOTE | 2019-03-06 13:39 | Progress Note ---
Assessment and Plan Assessment and plan: Patient is a 63-year-old -[place] man from [facility] with a plethora of co-morbidities including blindness, CVA, CHF, PPM/ICD, loop recorder since 2012 that is MRI compatible, IDDM type 2, sepsis left foot ulcer, afib, ESRD with complications on HD TTS, hypertension, AOCD and GERD who presented to the ED with hypotensive after intubation in the emergency room. Still intubated, diagnosed with fluid overload, pleural effusion. Patient has had recurrent admission in the hospital for similar reason and was recently discharged from the hospital following treatment of Severe Sepsis due to Necrotizing Unstagable sacral decubitus ulcer with ostemomylitis, expected to complete abx on discharge till 02/16/19. Trach and peg done and LTAC transfer with anticipated longer weaning process and wound care management. HR control improved with change in BB. Acute respiratory failure on mechanical ventilator >96 hrs - Currently on trach placed on 03/03 Pulm consult appreciated weaning trial VAP BUNDLE ASPIRATION BUNDLE Acute pulmonary edema, fluid overload on CXR repeat xray intermittently Dialysis Dilated CMP Continue diuresis Acute encephalopathy, probably metabolic or toxic Continues on Mechanical ventilator. ESRD on hemodialysis nephrology following Vascular eval. done re: LUE AV graft, see note Bilateral pleural effusions Anticipate improvement with Permanent atrial fibrillation and flutter Not on anticoagulation because of anemia thrombocytopenia Change noted to BB agent to IV. 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 -Pt is s/p x1 DDVAP RUL atelectasis, probably mucous plugging DVT prophylaxis Lovenox Full code status poor prognosis The high probability of a clinically significant, sudden or life threatening deterioration of the [pulmonary, neuro, renal] system(s) required my full and direct attention, intervention and personal management. The aggregate critical care time was [35] minutes. This time is in addition to time spent performing reported procedures but includes the following: [x] Data Review and interpretation [x] Patient assessment and monitoring of vital signs [] Documentation [x] Medication orders and management History Interval history: Patient was seen and evaluated this morning, Patient is on PEG and trach. Patient follow simple commands. Hospitalist Physical - Physical exam Narrative exam: Patient is on trach and PEG The patient appeared well nourished and normally developed. Vital signs as documented. Head exam is unremarkable. No scleral icterus . Neck is without jugular venous distension, thyromegaly, or carotid bruits. Lungs are clear to auscultation. Cardiac exam reveals regular rate and Rhythm. First and second heart sounds normal. No murmurs, rubs or gallops. Abdominal exam reveals PEG tube in place, colostomy bag in place. Extremities are nonedematous and both femoral and pedal pulses are normal. [employer]: Patient follow simple commands. - Constitutional Vitals: Temp Pulse Resp BP Pulse Ox 98.0 F 80 21 111/59 97 03/06/19 12:00 03/06/19 12:19 03/06/19 12:19 03/06/19 12:19 03/06/19 12:19 General appearance: Present: no acute distress Results - Labs CBC & Chem 7: 03/04/19 05:40 03/04/19 05:40 Labs: Laboratory Last Values WBC 6.8 K/mm3 (4.5-11.0) 03/04/19 05:40 RBC 2.63 M/mm3 (3.65-5.03) L 03/04/19 05:40 Hgb 7.2 gm/dl (11.8-15.2) L 03/04/19 05:40 Hct 22.2 % (35.5-45.6) L 03/04/19 05:40 MCV 84 fl (84-94) 03/04/19 05:40 MCH 28 pg (28-32) 03/04/19 05:40 MCHC 33 % (32-34) 03/04/19 05:40 RDW 20.2 % (13.2-15.2) H 03/04/19 05:40 Plt Count 233 K/mm3 (140-440) 03/04/19 05:40 Lymph % (Auto) 10.5 % (13.4-35.0) L 03/04/19 05:40 Mobile % (Auto) 7.2 % (0.0-7.3) 03/04/19 05:40 Eos % (Auto) 4.6 % (0.0-4.3) H 03/04/19 05:40 Baso % (Auto) 0.8 % (0.0-1.8) 03/04/19 05:40 Lymph # 0.7 K/mm3 (1.2-5.4) L 03/04/19 05:40 Mobile # 0.5 K/mm3 (0.0-0.8) 03/04/19 05:40 Eos # 0.3 K/mm3 (0.0-0.4) 03/04/19 05:40 Baso # 0.1 K/mm3 (0.0-0.1) 03/04/19 05:40 Seg Neutrophils % 76.9 % (40.0-70.0) H 03/04/19 05:40 Seg Neutrophils # 5.2 K/mm3 (1.8-7.7) 03/04/19 05:40 PT 16.3 Sec. (12.2-14.9) H 03/01/19 09:39 INR 1.35 (0.87-1.13) H 03/01/19 09:39 APTT 33.7 Sec. (24.2-36.6) 02/21/19 18:30 2987.82 ng/mlDDU (0-234) H 02/22/19 05:54 POC ABG pH 7.483 (7.35-7.45) H 02/27/19 04:35 POC ABG pCO2 37.5 (35-45) 02/27/19 04:35 POC ABG pO2 61 (80-105) L 02/27/19 04:35 POC ABG HCO3 28.1 (22-26 mml/L) 02/27/19 04:35 POC ABG Total CO2 29 (23-27mmol/L) 02/27/19 04:35 POC ABG O2 Sat 93 02/27/19 04:35 POC ABG Base Excess 5 ((-2) - (+3)mmol/L) 02/27/19 04:35 30 % 02/27/19 04:35 Sodium 142 mmol/L (137-145) 03/04/19 05:40 Potassium 4.4 mmol/L (3.6-5.0) 03/04/19 05:40 Chloride 101.2 mmol/L (98-107) 03/04/19 05:40 Carbon Dioxide 30 mmol/L (22-30) 03/04/19 05:40 15 mmol/L 03/04/19 05:40 BUN 34 mg/dL (9-20) H 03/04/19 05:40 2.7 mg/dL (0.8-1.5) H 03/04/19 05:40 Estimated GFR 29 ml/min 03/04/19 05:40 13 % 03/04/19 05:40 Glucose 114 mg/dL (75-100) H 03/04/19 05:40 POC Glucose 113 (70-105) H 03/06/19 13:05 Lactic Acid 1.00 mmol/L (0.7-2.0) 02/21/19 20:58 Calcium 9.8 mg/dL (8.4-10.2) 03/04/19 05:40 Phosphorus 2.30 mg/dL (2.5-4.5) L 03/02/19 05:15 Magnesium 2.20 mg/dL (1.7-2.3) 03/02/19 05:15 0.20 mg/dL (0.1-1.2) 02/21/19 18:30 AST 17 units/L (5-40) 02/21/19 18:30 ALT 7 units/L (7-56) 02/21/19 18:30 136 units/L (35-129) H 02/21/19 18:30 28.0 umol/L (25-60) 02/21/19 20:04 64 units/L (55-170) 02/22/19 03:42 CK-MB (CK-2) 3.7 ng/mL (0.0-4.0) 02/22/19 03:42 CK-MB (CK-2) Rel Index 5.7 (0-4) H 02/22/19 03:42 0.193 ng/mL (0.00-0.029) H* 02/22/19 03:42 6.7 g/dL (6.3-8.2) 02/21/19 18:30 2.4 g/dL (3.9-5) L 02/21/19 18:30 0.6 % 02/21/19 18:30 Triglycerides 51 mg/dL (2-149) 02/21/19 18:30 Cholesterol 82 mg/dL (50-199) 02/21/19 18:30 36 mg/dL (50-130) L 02/21/19 18:30 40 mg/dL (40-59) 02/21/19 18:30 2.05 % 02/21/19 18:30 TSH 2.760 mlU/mL (0.270-4.200) 02/21/19 20:04 PTH Intact 267.6 pg/mL (15-65) H 03/02/19 05:15 Salicylates < 0.3 mg/dL (2.8-20.0) L 02/21/19 20:04 Acetaminophen < 5.0 ug/mL (10.0-30.0) L 02/21/19 20:04 Hepatitis A IgM Ab Non-reactive (NonReactive) 02/23/19 11:20 Hep Bs Antigen Non-reactive (Negative) 02/23/19 11:20 Hep B Core IgM Ab Non-reactive (NonReactive) 02/23/19 11:20 Non-reactive (NonReactive) 02/23/19 11:20 Active Medications - Current Medications Current Medications: Generic Name Dose Route Start Last Admin Trade Name Freq PRN Reason Stop Dose Admin Acetaminophen 650 mg 02/21/19 22:19 03/05/19 08:16 Tylenol PO 650 mg Q4H PRN Administration Pain MILD(1-3)/Fever >100.5/HILL Albuterol/Ipratropium 1 ampul 02/24/19 20:00 03/06/19 08:01 Duoneb *Not For Prn Use* IH 1 ampul TIDRT SANCHEZ Administration Lipase/Protease/Amylase 1 each 03/05/19 14:04 Pancrejewel Barrientos 10,500 Unit FEEDTUBE PRN PRN For Clogged Feeding Tube Dextrose 50 ml 02/21/19 22:22 03/03/19 17:37 D50w (25gm) Syringe IV 50 ml PRN PRN Administration Hypoglycemia Famotidine 20 mg 02/23/19 10:00 03/06/19 10:59 Pepcid PO 20 mg DAILY SANCHEZ Administration Heparin Sodium (Porcine) 5,000 unit 03/04/19 22:00 03/06/19 11:01 Heparin SUB-Q 5,000 unit Q12HR SANCHEZ Administration Hydrophilic Ointment 1 applic 02/21/19 18:24 03/05/19 08:16 Vaseline Lip Therapy TP 1 applic Q2HR PRN Administration Dry Lips Sodium Chloride 100 mls @ 999 mls/hr 02/26/19 09:00 Nacl 0.9% IV UMA PRN Hypotension Insulin Human Regular 0 units 02/26/19 12:00 03/06/19 06:00 Humulin R SUB-Q Not Given Q6HR [facility] Protocol Metoprolol Tartrate 2.5 mg 02/28/19 12:06 03/01/19 10:32 Lopressor IV 2.5 mg Q4HR PRN Administration Tachycardia Metoprolol Tartrate 25 mg 03/02/19 14:00 03/06/19 10:58 Lopressor PO 25 mg TID SANCHEZ Administration Multi-Ingred Cream/Lotion/Oil/Oint 1 applic 02/21/19 18:24 Artificial Tears Ophth Oint OU Q4HR PRN Dry Eye(s) Ondansetron HCl 4 mg 02/21/19 22:19 Zofran IV Q8H PRN Nausea And Vomiting Risperidone 1 mg 02/25/19 13:00 03/06/19 10:59 Risperdal PO 1 mg DAILY SANCHEZ Administration Sertraline HCl 100 mg 02/25/19 13:00 03/06/19 10:59 Zoloft PO 100 mg DAILY SANCHEZ Administration Simple Syrup 15 ml 03/05/19 14:04 Simple Syrup FEEDTUBE PRN PRN Hypoglycemia Simple Syrup 30 ml 03/05/19 14:04 Simple Syrup FEEDTUBE PRN PRN Hypoglycemia Sodium Bicarbonate 325 mg 03/05/19 14:04 Sodium Bicarbonate FEEDTUBE PRN PRN For Clogged Feeding Tube Sodium Chloride 10 ml 02/22/19 10:00 03/06/19 11:01 Sodium Chloride Flush Syringe 10 Ml IV 10 ml BID SANCHEZ Administration Sodium Chloride 10 ml 02/21/19 22:19 02/24/19 22:00 Sodium Chloride Flush Syringe 10 Ml IV 10 ml PRN PRN Administration LINE FLUSH Tramadol HCl 50 mg 03/05/19 10:08 03/06/19 10:59 Ultram PO 50 mg Q6H PRN Administration Pain, Moderate (4-6) Nutrition/Malnutrition Assess - Dietary Evaluation Nutrition/Malnutrition Findings: Nutrition Notes Start: 02/22/19 12:51 Freq: Status: Active Protocol: Document 03/05/19 13:59 RM (Rec: 03/05/19 14:02 RM [email or web address]) Nutrition Notes Initial or Follow up Reassessment Current Diagnosis Diabetes,Hypertension Other Pertinent Diagnosis Sacral PU, ESRD on HD (T/ /Sat), Schizophrenia,Blind in L eye,S/P trach Current Diet NPO after midnight Labs/Tests Reviewed Pertinent Medications Reviewed Height 5 ft 10 in Weight 88.7 kg [place] Body Weight (kg) 75.45 BMI 28.0 Subjective/Other Information Trach placed yesterday. Observed Vital 1.2 infusing at goal rate. Per nurse pt is tolerating TF. Percent of energy/protein needs met: 100%/100% Burn Absent Trauma Absent #2 Nutrition Diagnosis Increased nutrient needs ( specify in comment below) Diagnosis Progress(for reassessment Continues documentation) #1 Nutrition Diagnosis Inadequate oral intake Diagnosis Progress(for reassessment Continues documentation) Is patient on ventilator? Yes Is Patient Ambulatory and/or Out of Bed No REE-([facility]-confined to bed) 2023.976 Kcal/Kg value to use for calculation 18 Approximate Energy Requirements Using 1597 kcal/Kg Calculation Used for Recommendations Kcal/kg Additional Notes Protein Needs: 106-177g (1.2- 2g/kg) Fluid Needs: 1 ml/kcal Nutrition Intervention Nutrition Support: Vital 1.2 at 70 ml/hr Water flush of 100 mls q 4 hrs Kcal 2,016 Protein (gm) 126 Fluid (mL) 1,362 Add Supplement/Snack (indicate name/kcal Abhilash BID /protein ) Provides kCal: 190 Provides Protein (gm) 5 Goal #1 TF tolerance Goal #2 Continue to meet at least 80% of calorie and protein needs via TF Anticipated Discharge Needs: Unable to determine at this time Follow-Up By: 03/13/19 Additional Comments Follow for TF tolerance
--- NOTE | 2019-03-06 13:54 | Progress Note ---
Assessment and Plan Assessment: * End stage renal disease (outpatient TTS schedule) * Acute hypoxic respiratory failure on mechanical ventilation * Atrial fibrillation * History of CVA * Anemia secondary to ESRD * Secondary hyperparathyroidism Plan * Continue HD MWF schedule for now * UF as tolerated * Vascular surgery notes reviewed - permcath removal prior to d/c * Empiric abx per ID/primary team * Nutrition per primary team * Dose medications for renal function * Epogen TID prn Subjective Date of service: 03/06/19 Principal diagnosis: respiratory failure Interval history: No acute events overnight Objective - Vital Signs Vital signs: Vital Signs - 12hr 03/06/19 03/06/19 03/06/19 02:00 03:00 03:17 Temperature 97.9 F Pulse Rate 111 H 84 Pulse Rate [ Anterior Bilateral Throughout] Pulse Rate [ Throughout] Respiratory Rate Respiratory Rate [Anterior Bilateral Throughout] Respiratory Rate [ Throughout] Blood Pressure 127/65 122/57 O2 Sat by Pulse 97 97 Oximetry O2 Sat by Pulse Oximetry [ Assessment] 03/06/19 03/06/19 03/06/19 03:58 04:00 04:04 Temperature Pulse Rate 84 112 H Pulse Rate [ Anterior Bilateral Throughout] Pulse Rate [ Throughout] Respiratory Rate Respiratory Rate [Anterior Bilateral Throughout] Respiratory Rate [ Throughout] Blood Pressure 126/69 126/69 O2 Sat by Pulse 97 97 Oximetry O2 Sat by Pulse 97 Oximetry [ Assessment] 03/06/19 03/06/19 03/06/19 05:01 06:01 07:01 Temperature Pulse Rate 110 H 83 82 Pulse Rate [ Anterior Bilateral Throughout] Pulse Rate [ Throughout] Respiratory 12 10 L Rate Respiratory Rate [Anterior Bilateral Throughout] Respiratory Rate [ Throughout] Blood Pressure 120/66 120/66 120/66 O2 Sat by Pulse 100 98 96 Oximetry O2 Sat by Pulse Oximetry [ Assessment] 03/06/19 03/06/19 03/06/19 08:00 08:02 09:00 Temperature 97.9 F Pulse Rate 83 83 83 Pulse Rate [ 83 Anterior Bilateral Throughout] Pulse Rate [ 83 Throughout] Respiratory 9 L 12 Rate Respiratory 9 L Rate [Anterior Bilateral Throughout] Respiratory 9 L Rate [ Throughout] Blood Pressure 112/61 112/61 114/61 O2 Sat by Pulse 98 98 98 Oximetry O2 Sat by Pulse Oximetry [ Assessment] 03/06/19 03/06/19 03/06/19 10:00 10:01 10:58 Temperature Pulse Rate 82 82 Pulse Rate [ Anterior Bilateral Throughout] Pulse Rate [ Throughout] Respiratory 0 L 15 Rate Respiratory Rate [Anterior Bilateral Throughout] Respiratory Rate [ Throughout] Blood Pressure 138/64 138/64 120/60 O2 Sat by Pulse 99 96 Oximetry O2 Sat by Pulse Oximetry [ Assessment] 03/06/19 03/06/19 03/06/19 11:00 12:00 12:19 Temperature 98.0 F Pulse Rate 82 81 80 Pulse Rate [ Anterior Bilateral Throughout] Pulse Rate [ Throughout] Respiratory 20 0 L 21 Rate Respiratory Rate [Anterior Bilateral Throughout] Respiratory Rate [ Throughout] Blood Pressure 121/64 111/59 111/59 O2 Sat by Pulse 97 98 98 Oximetry O2 Sat by Pulse 97 Oximetry [ Assessment] - General Appearance General appearance: well-developed, frail EENT: ATNC Neck: other (trach in place) Respiratory: Present: Clear to Ascultation Cardiology: regular, S1S2 Gastrointestinal: normal, no tenderness, no distended, other (ostomy, PEG) Integumentary: no rash, warm and dry Musculoskeletal: other (no edema) - Lab 03/04/19 05:40 03/04/19 05:40 Most recent lab results Calcium 9.8 mg/dL (8.4-10.2) 03/04/19 05:40 Phosphorus 2.30 mg/dL (2.5-4.5) L 03/02/19 05:15 Magnesium 2.20 mg/dL (1.7-2.3) 03/02/19 05:15 Medications & Allergies - Medications Allergies/Adverse Reactions: Allergies haloperidol [From Haldol] Adverse Reaction (Verified 03/13/18 12:10) Unknown haloperidol lactate [From Haldol] Adverse Reaction (Verified 03/13/18 12:10) Unknown Home Medications: Home Medications Medication Instructions Recorded Confirmed Last Taken Type risperiDONE [RisperDAL] 1 mg PO QAM 03/13/18 02/21/19 Unknown History Sertraline [Zoloft] 100 mg PO QDAY 08/26/18 02/21/19 Unknown History Polyethylene Glycol 3350 [Miralax 17 gm PO QDAY #30 packet 11/05/18 02/21/19 Unknown Rx 3350] Aspirin EC [Halfprin EC] 81 mg PO DAILY #30 11/19/18 02/21/19 Unknown Rx Docusate Sodium [Colace CAP] 100 mg PO BID #60 11/19/18 02/21/19 Unknown Rx Folic Acid [Folvite] 1 mg PO DAILY #30 tab 11/19/18 02/21/19 Unknown Rx Famotidine [Pepcid] 20 mg PO DAILY tablet 12/08/18 02/21/19 Unknown Rx Gabapentin [Neurontin] 100 mg PO QHS capsule 12/08/18 02/21/19 Unknown Rx Metoprolol [Lopressor TAB] 50 mg PO BID 30 Days tablet 12/08/18 02/21/19 Unknown Rx Sevelamer Carbonate [Renvela] 800 mg PO TIDWM tablet 12/08/18 02/21/19 Unknown Rx hydrALAZINE [Apresoline TAB] 100 mg PO Q8HR #120 tablet 12/08/18 02/21/19 Unknown Rx Acetaminophen [Acetaminophen TAB] 650 mg PO Q12H PRN 12/15/18 02/21/19 Unknown History Glucagon,Human Recombinant 1 mg IJ Q15MIN PRN 12/15/18 02/21/19 Unknown History [Glucagon Emergency Kit] Insulin Aspart [NovoLOG 100 See Protocol SQ QWEEK 12/15/18 02/21/19 Unknown History UNITS/ML VIAL] Active Medications: Generic Name Dose Route Start Last Admin Trade Name Sivaq PRN Reason Stop Dose Admin Acetaminophen 650 mg 02/21/19 22:19 03/05/19 08:16 Tylenol PO 650 mg Q4H PRN Administration Pain MILD(1-3)/Fever >100.5/HILL Albuterol/Ipratropium 1 ampul 02/24/19 20:00 03/06/19 08:01 Duoneb *Not For Prn Use* IH 1 ampul TIDRT SANCHEZ Administration Lipase/Protease/Amylase 1 each 03/05/19 14:04 Pancrejewel Barrientos 10,500 Unit FEEDTUBE PRN PRN For Clogged Feeding Tube Dextrose 50 ml 02/21/19 22:22 03/03/19 17:37 D50w (25gm) Syringe IV 50 ml PRN PRN Administration Hypoglycemia Famotidine 20 mg 02/23/19 10:00 03/06/19 10:59 Pepcid PO 20 mg DAILY SANCHEZ Administration Heparin Sodium (Porcine) 5,000 unit 03/04/19 22:00 03/06/19 11:01 Heparin SUB-Q 5,000 unit Q12HR SANCHEZ Administration Hydrophilic Ointment 1 applic 02/21/19 18:24 03/05/19 08:16 Vaseline Lip Therapy TP 1 applic Q2HR PRN Administration Dry Lips Sodium Chloride 100 mls @ 999 mls/hr 02/26/19 09:00 Nacl 0.9% IV UMA PRN Hypotension Insulin Human Regular 0 units 02/26/19 12:00 03/06/19 06:00 Humulin R SUB-Q Not Given Q6HR [facility] Protocol Metoprolol Tartrate 2.5 mg 02/28/19 12:06 03/01/19 10:32 Lopressor IV 2.5 mg Q4HR PRN Administration Tachycardia Metoprolol Tartrate 25 mg 03/02/19 14:00 03/06/19 10:58 Lopressor PO 25 mg TID SANCHEZ Administration Multi-Ingred Cream/Lotion/Oil/Oint 1 applic 02/21/19 18:24 Artificial Tears Ophth Oint OU Q4HR PRN Dry Eye(s) Ondansetron HCl 4 mg 02/21/19 22:19 Zofran IV Q8H PRN Nausea And Vomiting Risperidone 1 mg 02/25/19 13:00 03/06/19 10:59 Risperdal PO 1 mg DAILY SANCHEZ Administration Sertraline HCl 100 mg 02/25/19 13:00 03/06/19 10:59 Zoloft PO 100 mg DAILY SANCHEZ Administration Simple Syrup 15 ml 03/05/19 14:04 Simple Syrup FEEDTUBE PRN PRN Hypoglycemia Simple Syrup 30 ml 03/05/19 14:04 Simple Syrup FEEDTUBE PRN PRN Hypoglycemia Sodium Bicarbonate 325 mg 03/05/19 14:04 Sodium Bicarbonate FEEDTUBE PRN PRN For Clogged Feeding Tube Sodium Chloride 10 ml 02/22/19 10:00 03/06/19 11:01 Sodium Chloride Flush Syringe 10 Ml IV 10 ml BID SANCHEZ Administration Sodium Chloride 10 ml 02/21/19 22:19 02/24/19 22:00 Sodium Chloride Flush Syringe 10 Ml IV 10 ml PRN PRN Administration LINE FLUSH Tramadol HCl 50 mg 03/05/19 10:08 03/06/19 10:59 Ultram PO 50 mg Q6H PRN Administration Pain, Moderate (4-6)
--- NOTE | 2019-03-06 15:16 | Event Note ---
Date: 03/06/19 Case Management note reviewed. Pt for LTAC eval next week. Will recheck early next week for PC removal prior to d/c.
[2019-03-07] MEDS: INSULIN REGULAR, HUMAN 100 UNITS/1 ML SUB-Q SCH ×4 (01:23→21:23)
--- NOTE | 2019-03-07 03:33 | XRay Report ---
CHEST 1 VIEW 2:05 AM INDICATION / CLINICAL INFORMATION: Atelectasis. COMPARISON: 03/03/2019. FINDINGS: SUPPORT DEVICES: The positions of the tracheostomy tube and bilateral jugular venous catheters have n ot changed. HEART / MEDIASTINUM: Unchanged. LUNGS / PLEURA: Localized pleuroparenchymal opacity in the right upper lung is no longer present. Pro bable mild interstitial edema is stable. There is a very small right apical pneumothorax which is new or better seen. ADDITIONAL FINDINGS: No significant additional findings. IMPRESSION: Very small right apical pneumothorax. Signer Name: Kwaku Carroll MD Signed: 03/07/2019 3:29 AM Workstation Name: [id number]
[2019-03-07] MEDS: IPRATROPIUM/ALBUTEROL SULFATE 3 ML AMPUL.NEB IH SCH ×3 (08:47→19:35)
[2019-03-07] MEDS: METOPROLOL TARTRATE 25 MG TAB PO SCH ×3 (08:50→22:22)
[2019-03-07] MEDS: HEPARIN 5,000 UNIT/1 ML VIAL SUB-Q SCH ×2 (10:57→22:22)
[2019-03-07] MEDS: SERTRALINE 100 MG TAB PO SCH (10:58)
[2019-03-07] MEDS: risperiDONE 1 MG TAB PO SCH (11:00)
[2019-03-07] MEDS: FAMOTIDINE 20 MG TAB PO SCH (11:00)
--- NOTE | 2019-03-07 11:25 | Progress Note ---
Assessment and Plan - Patient Problems (1) Pulmonary hypertension Current Visit: Yes Status: Acute (2) Dilated cardiomyopathy Current Visit: Yes Status: Acute (3) Encephalopathy Current Visit: Yes Status: Acute (4) ESRD (end stage renal disease) on dialysis Current Visit: Yes Status: Chronic (5) Acute HFrEF (heart failure with reduced ejection fraction) Current Visit: No Status: Acute (6) Altered mental status Current Visit: No Status: Acute Qualifiers: Altered mental status type: unspecified Qualified Code(s): R41.82 - Altered mental status, unspecified (7) Apneic episode Current Visit: No Status: Acute (8) Diabetes mellitus, insulin dependent (IDDM), uncontrolled Current Visit: No Status: Acute (9) Elevated lactic acid level Current Visit: No Status: Acute (10) Pneumothorax Current Visit: Yes Status: Suspected Subjective Principal diagnosis: respiratory failure Interval history: on vent PRVC 25%450 p6 MV 7 Objective Vital Signs - 12hr 03/07/19 03/07/19 03/07/19 00:00 00:45 01:00 Temperature Pulse Rate 79 79 79 Pulse Rate [ Anterior Bilateral Throughout] Pulse Rate [ From Monitor] Respiratory 12 12 Rate Respiratory Rate [Anterior Bilateral Throughout] Blood Pressure 134/73 127/71 132/74 O2 Sat by Pulse 100 100 100 Oximetry O2 Sat by Pulse 100 Oximetry [ Assessment] 03/07/19 03/07/19 03/07/19 01:30 02:00 03:00 Temperature Pulse Rate 78 78 Pulse Rate [ Anterior Bilateral Throughout] Pulse Rate [ 78 From Monitor] Respiratory 18 13 12 Rate Respiratory Rate [Anterior Bilateral Throughout] Blood Pressure 138/69 130/76 O2 Sat by Pulse 98 100 100 Oximetry O2 Sat by Pulse Oximetry [ Assessment] 03/07/19 03/07/19 03/07/19 03:43 04:00 04:45 Temperature 98.8 F Pulse Rate 78 79 Pulse Rate [ Anterior Bilateral Throughout] Pulse Rate [ From Monitor] Respiratory 12 Rate Respiratory Rate [Anterior Bilateral Throughout] Blood Pressure 128/68 116/66 O2 Sat by Pulse 99 97 Oximetry O2 Sat by Pulse Oximetry [ Assessment] 03/07/19 03/07/19 03/07/19 05:00 05:39 06:00 Temperature Pulse Rate 80 80 Pulse Rate [ Anterior Bilateral Throughout] Pulse Rate [ 78 From Monitor] Respiratory 12 18 15 Rate Respiratory Rate [Anterior Bilateral Throughout] Blood Pressure 122/68 110/69 O2 Sat by Pulse 100 98 100 Oximetry O2 Sat by Pulse Oximetry [ Assessment] 03/07/19 03/07/19 03/07/19 07:00 07:25 08:00 Temperature Pulse Rate 80 80 Pulse Rate [ 79 Anterior Bilateral Throughout] Pulse Rate [ 80 From Monitor] Respiratory 12 16 12 Rate Respiratory 12 Rate [Anterior Bilateral Throughout] Blood Pressure 127/63 113/64 O2 Sat by Pulse 90 94 Oximetry O2 Sat by Pulse Oximetry [ Assessment] Constitutional: alert, other (critically ill on vent) Eyes: non-icteric Effort: normal Ascultation: Bilateral: diminished breath sounds, other (coarse BS bilaterally) Percussion: Bilateral: not dull Cardiovascular: regular rate and rhythm (no mrg) Gastrointestinal: normoactive bowel sounds, soft, non-tender, non-distended Extremities: no edema, pink and warm Neurologic: other (mild weakness LUE, o/w nonfocal) Psychiatric: mood appropriate, affect normal CBC and BMP: 03/04/19 05:40 03/04/19 05:40 ABG, PT/INR, D-dimer: ABG POC ABG pH 7.483 (7.35-7.45) H 02/27/19 04:35 POC ABG pCO2 37.5 (35-45) 02/27/19 04:35 POC ABG pO2 61 (80-105) L 02/27/19 04:35 POC ABG HCO3 28.1 (22-26 mml/L) 02/27/19 04:35 POC ABG Total CO2 29 (23-27mmol/L) 02/27/19 04:35 POC ABG O2 Sat 93 02/27/19 04:35 PT/INR, D-dimer PT 16.3 Sec. (12.2-14.9) H 03/01/19 09:39 INR 1.35 (0.87-1.13) H 03/01/19 09:39 2987.82 ng/mlDDU (0-234) H 02/22/19 05:54 Abnormal lab findings: Abnormal Labs 02/21/19 02/21/19 02/21/19 18:30 18:30 18:30 RBC 3.26 L Hgb 8.8 L Hct 29.0 L MCH 27 L MCHC 30 L RDW 19.1 H Lymph % (Auto) 6.1 L [place] % (Auto) Eos % (Auto) Lymph # 0.4 L Eos # Seg Neutrophils % 86.2 H PT INR D-Dimer POC ABG pH POC ABG pCO2 POC ABG pO2 Sodium 133 L Potassium 3.3 L Chloride 93.1 L Carbon Dioxide 33 H BUN Creatinine Glucose 161 H POC Glucose Phosphorus Alkaline Phosphatase 136 H Total Creatine Kinase 37 L CK-MB (CK-2) Rel Index Troponin T 0.192 H* Albumin 2.4 L LDL Cholesterol Direct 36 L PTH Intact Salicylates Acetaminophen 02/21/19 02/21/19 02/21/19 18:42 20:04 20:04 RBC Hgb Hct MCH MCHC RDW Lymph % (Auto) [place] % (Auto) Eos % (Auto) Lymph # Eos # Seg Neutrophils % PT INR D-Dimer POC ABG pH POC ABG pCO2 56.7 H POC ABG pO2 291 H Sodium Potassium Chloride Carbon Dioxide BUN Creatinine Glucose POC Glucose Phosphorus Alkaline Phosphatase Total Creatine Kinase CK-MB (CK-2) Rel Index Troponin T Albumin LDL Cholesterol Direct PTH Intact Salicylates < 0.3 L Acetaminophen < 5.0 L 02/21/19 02/22/19 02/22/19 22:35 03:42 03:42 RBC 3.20 L Hgb 8.8 L Hct 27.6 L MCH MCHC RDW 18.9 H Lymph % (Auto) 7.4 L [place] % (Auto) Eos % (Auto) Lymph # 0.7 L Eos # Seg Neutrophils % 84.7 H PT INR D-Dimer POC ABG pH POC ABG pCO2 POC ABG pO2 Sodium 134 L Potassium 2.6 L* D Chloride Carbon Dioxide BUN Creatinine Glucose POC Glucose Phosphorus Alkaline Phosphatase Total Creatine Kinase CK-MB (CK-2) Rel Index 5.2 H Troponin T 0.202 H* Albumin LDL Cholesterol Direct PTH Intact Salicylates Acetaminophen 02/22/19 02/22/19 02/22/19 03:42 05:54 09:04 RBC Hgb Hct MCH MCHC RDW Lymph % (Auto) [place] % (Auto) Eos % (Auto) Lymph # Eos # Seg Neutrophils % PT INR D-Dimer 2987.82 H POC ABG pH 7.451 H POC ABG pCO2 POC ABG pO2 Sodium Potassium Chloride Carbon Dioxide BUN Creatinine Glucose POC Glucose Phosphorus Alkaline Phosphatase Total Creatine Kinase CK-MB (CK-2) Rel Index 5.7 H Troponin T 0.193 H* Albumin LDL Cholesterol Direct PTH Intact Salicylates Acetaminophen 02/22/19 02/22/19 02/23/19 10:36 23:56 00:52 RBC Hgb Hct MCH MCHC RDW Lymph % (Auto) [place] % (Auto) Eos % (Auto) Lymph # Eos # Seg Neutrophils % PT INR D-Dimer POC ABG pH POC ABG pCO2 POC ABG pO2 Sodium Potassium 3.1 L Chloride Carbon Dioxide BUN Creatinine Glucose POC Glucose 58 L 111 H Phosphorus Alkaline Phosphatase Total Creatine Kinase CK-MB (CK-2) Rel Index Troponin T Albumin LDL Cholesterol Direct PTH Intact Salicylates Acetaminophen 02/23/19 02/23/19 02/23/19 05:00 06:35 14:26 RBC Hgb Hct MCH MCHC RDW Lymph % (Auto) [place] % (Auto) Eos % (Auto) Lymph # Eos # Seg Neutrophils % PT INR D-Dimer POC ABG pH POC ABG pCO2 POC ABG pO2 Sodium 135 L Potassium 3.1 L Chloride Carbon Dioxide BUN 21 H Creatinine 2.0 H Glucose 57 L POC Glucose 64 L 62 L Phosphorus Alkaline Phosphatase Total Creatine Kinase CK-MB (CK-2) Rel Index Troponin T Albumin LDL Cholesterol Direct PTH Intact Salicylates Acetaminophen 02/24/19 02/24/19 02/24/19 02:11 04:12 04:55 RBC 2.84 L Hgb 7.8 L Hct 24.5 L MCH MCHC RDW 19.5 H Lymph % (Auto) [place] % (Auto) Eos % (Auto) Lymph # Eos # Seg Neutrophils % PT INR D-Dimer POC ABG pH 7.511 H POC ABG pCO2 33.9 L POC ABG pO2 62 L Sodium Potassium Chloride Carbon Dioxide BUN Creatinine Glucose POC Glucose 69 L Phosphorus Alkaline Phosphatase Total Creatine Kinase CK-MB (CK-2) Rel Index Troponin T Albumin LDL Cholesterol Direct PTH Intact Salicylates Acetaminophen 02/24/19 02/24/19 02/25/19 04:55 05:41 04:45 RBC Hgb Hct MCH MCHC RDW Lymph % (Auto) [place] % (Auto) Eos % (Auto) Lymph # Eos # Seg Neutrophils % PT INR D-Dimer POC ABG pH 7.466 H POC ABG pCO2 POC ABG pO2 75 L Sodium Potassium Chloride Carbon Dioxide BUN Creatinine 1.8 H Glucose 73 L POC Glucose 127 H Phosphorus Alkaline Phosphatase Total Creatine Kinase CK-MB (CK-2) Rel Index Troponin T Albumin LDL Cholesterol Direct PTH Intact Salicylates Acetaminophen 02/25/19 02/25/19 02/26/19 16:34 21:33 03:45 RBC 2.96 L Hgb 8.0 L Hct 25.8 L MCH 27 L MCHC 31 L RDW 20.0 H Lymph % (Auto) [place] % (Auto) Eos % (Auto) Lymph # Eos # Seg Neutrophils % PT INR D-Dimer POC ABG pH POC ABG pCO2 POC ABG pO2 Sodium Potassium Chloride Carbon Dioxide BUN Creatinine Glucose POC Glucose 141 H 106 H Phosphorus Alkaline Phosphatase Total Creatine Kinase CK-MB (CK-2) Rel Index Troponin T Albumin LDL Cholesterol Direct PTH Intact Salicylates Acetaminophen 02/26/19 02/26/19 02/26/19 03:45 04:13 07:53 RBC Hgb Hct MCH MCHC RDW Lymph % (Auto) [place] % (Auto) Eos % (Auto) Lymph # Eos # Seg Neutrophils % PT INR D-Dimer POC ABG pH 7.470 H POC ABG pCO2 POC ABG pO2 Sodium Potassium Chloride Carbon Dioxide BUN Creatinine 1.8 H Glucose POC Glucose 110 H Phosphorus Alkaline Phosphatase Total Creatine Kinase CK-MB (CK-2) Rel Index Troponin T Albumin LDL Cholesterol Direct PTH Intact Salicylates Acetaminophen 02/26/19 02/26/19 02/27/19 11:56 17:43 00:12 RBC Hgb Hct MCH MCHC RDW Lymph % (Auto) [place] % (Auto) Eos % (Auto) Lymph # Eos # Seg Neutrophils % PT INR D-Dimer POC ABG pH POC ABG pCO2 POC ABG pO2 Sodium Potassium Chloride Carbon Dioxide BUN Creatinine Glucose POC Glucose 112 H 127 H 127 H Phosphorus Alkaline Phosphatase Total Creatine Kinase CK-MB (CK-2) Rel Index Troponin T Albumin LDL Cholesterol Direct PTH Intact Salicylates Acetaminophen 02/27/19 02/27/19 02/27/19 04:35 13:15 18:02 RBC Hgb Hct MCH MCHC RDW Lymph % (Auto) [place] % (Auto) Eos % (Auto) Lymph # Eos # Seg Neutrophils % PT INR D-Dimer POC ABG pH 7.483 H POC ABG pCO2 POC ABG pO2 61 L Sodium Potassium Chloride Carbon Dioxide BUN Creatinine Glucose POC Glucose 143 H 106 H Phosphorus Alkaline Phosphatase Total Creatine Kinase CK-MB (CK-2) Rel Index Troponin T Albumin LDL Cholesterol Direct PTH Intact Salicylates Acetaminophen 02/28/19 02/28/19 02/28/19 05:50 11:59 17:52 RBC Hgb Hct MCH MCHC RDW Lymph % (Auto) [place] % (Auto) Eos % (Auto) Lymph # Eos # Seg Neutrophils % PT INR D-Dimer POC ABG pH POC ABG pCO2 POC ABG pO2 Sodium Potassium Chloride Carbon Dioxide BUN Creatinine Glucose POC Glucose 134 H 128 H 142 H Phosphorus Alkaline Phosphatase Total Creatine Kinase CK-MB (CK-2) Rel Index Troponin T Albumin LDL Cholesterol Direct PTH Intact Salicylates Acetaminophen 02/28/19 03/01/19 03/01/19 23:13 05:40 09:39 RBC Hgb Hct MCH MCHC RDW Lymph % (Auto) [place] % (Auto) Eos % (Auto) Lymph # Eos # Seg Neutrophils % PT 16.3 H INR 1.35 H D-Dimer POC ABG pH POC ABG pCO2 POC ABG pO2 Sodium Potassium Chloride Carbon Dioxide BUN Creatinine Glucose POC Glucose 112 H 111 H Phosphorus Alkaline Phosphatase Total Creatine Kinase CK-MB (CK-2) Rel Index Troponin T Albumin LDL Cholesterol Direct PTH Intact Salicylates Acetaminophen 03/01/19 03/01/19 03/01/19 11:56 13:54 17:59 RBC Hgb Hct MCH MCHC RDW Lymph % (Auto) [place] % (Auto) Eos % (Auto) Lymph # Eos # Seg Neutrophils % PT INR D-Dimer POC ABG pH POC ABG pCO2 POC ABG pO2 Sodium Potassium Chloride Carbon Dioxide BUN 33 H Creatinine 2.8 H D Glucose 176 H POC Glucose 199 H 147 H Phosphorus Alkaline Phosphatase Total Creatine Kinase CK-MB (CK-2) Rel Index Troponin T Albumin LDL Cholesterol Direct PTH Intact Salicylates Acetaminophen 03/02/19 03/02/19 03/02/19 05:15 05:15 05:15 RBC 2.73 L Hgb 7.4 L Hct 23.0 L MCH 27 L MCHC RDW 19.9 H Lymph % (Auto) [place] % (Auto) 7.9 H Eos % (Auto) 7.6 H Lymph # 1.0 L Eos # 0.5 H Seg Neutrophils % PT INR D-Dimer POC ABG pH POC ABG pCO2 POC ABG pO2 Sodium Potassium Chloride Carbon Dioxide BUN 43 H Creatinine 3.2 H Glucose POC Glucose Phosphorus 2.30 L Alkaline Phosphatase Total Creatine Kinase CK-MB (CK-2) Rel Index Troponin T Albumin LDL Cholesterol Direct PTH Intact 267.6 H Salicylates Acetaminophen 03/02/19 03/02/19 03/03/19 12:32 18:20 13:30 RBC Hgb Hct MCH MCHC RDW Lymph % (Auto) [place] % (Auto) Eos % (Auto) Lymph # Eos # Seg Neutrophils % PT INR D-Dimer POC ABG pH POC ABG pCO2 POC ABG pO2 Sodium Potassium Chloride 97.3 L Carbon Dioxide BUN 26 H Creatinine 2.2 H Glucose 73 L POC Glucose 111 H 156 H Phosphorus Alkaline Phosphatase Total Creatine Kinase CK-MB (CK-2) Rel Index Troponin T Albumin LDL Cholesterol Direct PTH Intact Salicylates Acetaminophen 03/04/19 03/04/19 03/04/19 00:02 05:37 05:40 RBC 2.63 L Hgb 7.2 L Hct 22.2 L MCH MCHC RDW 20.2 H Lymph % (Auto) 10.5 L [place] % (Auto) Eos % (Auto) 4.6 H Lymph # 0.7 L Eos # Seg Neutrophils % 76.9 H PT INR D-Dimer POC ABG pH POC ABG pCO2 POC ABG pO2 Sodium Potassium Chloride Carbon Dioxide BUN Creatinine Glucose POC Glucose 136 H 123 H Phosphorus Alkaline Phosphatase Total Creatine Kinase CK-MB (CK-2) Rel Index Troponin T Albumin LDL Cholesterol Direct PTH Intact Salicylates Acetaminophen 03/04/19 03/04/19 03/04/19 05:40 11:39 23:20 RBC Hgb Hct MCH MCHC RDW Lymph % (Auto) [place] % (Auto) Eos % (Auto) Lymph # Eos # Seg Neutrophils % PT INR D-Dimer POC ABG pH POC ABG pCO2 POC ABG pO2 Sodium Potassium Chloride Carbon Dioxide BUN 34 H Creatinine 2.7 H Glucose 114 H POC Glucose 175 H 151 H Phosphorus Alkaline Phosphatase Total Creatine Kinase CK-MB (CK-2) Rel Index Troponin T Albumin LDL Cholesterol Direct PTH Intact Salicylates Acetaminophen 03/05/19 03/05/19 03/05/19 05:37 12:08 17:11 RBC Hgb Hct MCH MCHC RDW Lymph % (Auto) [place] % (Auto) Eos % (Auto) Lymph # Eos # Seg Neutrophils % PT INR D-Dimer POC ABG pH POC ABG pCO2 POC ABG pO2 Sodium Potassium Chloride Carbon Dioxide BUN Creatinine Glucose POC Glucose 134 H 135 H 135 H Phosphorus Alkaline Phosphatase Total Creatine Kinase CK-MB (CK-2) Rel Index Troponin T Albumin LDL Cholesterol Direct PTH Intact Salicylates Acetaminophen 03/06/19 03/06/19 03/06/19 00:16 13:05 18:09 RBC Hgb Hct MCH MCHC RDW Lymph % (Auto) [place] % (Auto) Eos % (Auto) Lymph # Eos # Seg Neutrophils % PT INR D-Dimer POC ABG pH POC ABG pCO2 POC ABG pO2 Sodium Potassium Chloride Carbon Dioxide BUN Creatinine Glucose POC Glucose 117 H 113 H 131 H Phosphorus Alkaline Phosphatase Total Creatine Kinase CK-MB (CK-2) Rel Index Troponin T Albumin LDL Cholesterol Direct PTH Intact Salicylates Acetaminophen 03/07/19 05:25 RBC Hgb Hct MCH MCHC RDW Lymph % (Auto) [place] % (Auto) Eos % (Auto) Lymph # Eos # Seg Neutrophils % PT INR D-Dimer POC ABG pH POC ABG pCO2 POC ABG pO2 Sodium Potassium Chloride Carbon Dioxide BUN Creatinine Glucose POC Glucose 106 H Phosphorus Alkaline Phosphatase Total Creatine Kinase CK-MB (CK-2) Rel Index Troponin T Albumin LDL Cholesterol Direct PTH Intact Salicylates Acetaminophen Chest x-ray: report reviewed, image reviewed
--- NOTE | 2019-03-07 13:20 | XRay Report ---
CHEST 1 VIEW INDICATION: PTX. COMPARISON: The same day FINDINGS: SUPPORT DEVICES: Tracheostomy good position. Central venous lines have their tip in the superior vena cava HEART / MEDIASTINUM: No significant abnormality. LUNGS / PLEURA: Diffuse interstitial pulmonary changes noted No pneumothorax. ADDITIONAL FINDINGS: IMPRESSION: 1. No interval change compared to previous exam Signer Name: Young Titus MD Signed: 03/07/2019 1:15 PM Workstation Name: [id number]
--- NOTE | 2019-03-07 13:58 | Progress Note ---
Assessment and Plan Assessment: * End stage renal disease (outpatient TTS schedule) * Acute hypoxic respiratory failure on mechanical ventilation * Atrial fibrillation * History of CVA * Anemia secondary to ESRD * Secondary hyperparathyroidism Plan * Continue HD MWF schedule for now * UF as tolerated * Vascular surgery notes reviewed - permcath removal prior to d/c * Empiric abx per ID/primary team * Nutrition per primary team * Dose medications for renal function * Epogen TID prn Subjective Date of service: 03/07/19 Principal diagnosis: respiratory failure Objective - Vital Signs Vital signs: Vital Signs - 12hr 03/07/19 03/07/19 03/07/19 02:00 03:00 03:43 Temperature 98.8 F Pulse Rate 78 78 Pulse Rate [ Anterior Bilateral Throughout] Pulse Rate [ From Monitor] Respiratory 13 12 Rate Respiratory Rate [Anterior Bilateral Throughout] Blood Pressure 138/69 130/76 O2 Sat by Pulse 100 100 Oximetry 03/07/19 03/07/19 03/07/19 04:00 04:45 05:00 Temperature Pulse Rate 78 79 80 Pulse Rate [ Anterior Bilateral Throughout] Pulse Rate [ From Monitor] Respiratory 12 12 Rate Respiratory Rate [Anterior Bilateral Throughout] Blood Pressure 128/68 116/66 122/68 O2 Sat by Pulse 99 97 100 Oximetry 03/07/19 03/07/19 03/07/19 05:39 06:00 07:00 Temperature Pulse Rate 80 80 Pulse Rate [ Anterior Bilateral Throughout] Pulse Rate [ 78 From Monitor] Respiratory 18 15 12 Rate Respiratory Rate [Anterior Bilateral Throughout] Blood Pressure 110/69 127/63 O2 Sat by Pulse 98 100 90 Oximetry 03/07/19 03/07/19 03/07/19 07:25 08:00 09:00 Temperature Pulse Rate 80 81 Pulse Rate [ 79 Anterior Bilateral Throughout] Pulse Rate [ 80 From Monitor] Respiratory 16 12 8 L Rate Respiratory 12 Rate [Anterior Bilateral Throughout] Blood Pressure 113/64 122/70 O2 Sat by Pulse 94 99 Oximetry 03/07/19 03/07/19 03/07/19 10:00 11:00 12:00 Temperature Pulse Rate 80 80 79 Pulse Rate [ Anterior Bilateral Throughout] Pulse Rate [ 80 From Monitor] Respiratory 9 L 0 L 12 Rate Respiratory Rate [Anterior Bilateral Throughout] Blood Pressure 125/71 116/63 126/79 O2 Sat by Pulse 99 92 97 Oximetry - Lab 03/04/19 05:40 03/04/19 05:40 Most recent lab results Calcium 9.8 mg/dL (8.4-10.2) 03/04/19 05:40 Phosphorus 2.30 mg/dL (2.5-4.5) L 03/02/19 05:15 Magnesium 2.20 mg/dL (1.7-2.3) 03/02/19 05:15 Medications & Allergies - Medications Allergies/Adverse Reactions: Allergies haloperidol [From Haldol] Adverse Reaction (Verified 03/13/18 12:10) Unknown haloperidol lactate [From Haldol] Adverse Reaction (Verified 03/13/18 12:10) Unknown Home Medications: Home Medications Medication Instructions Recorded Confirmed Last Taken Type risperiDONE [RisperDAL] 1 mg PO QAM 03/13/18 02/21/19 Unknown History Sertraline [Zoloft] 100 mg PO QDAY 08/26/18 02/21/19 Unknown History Polyethylene Glycol 3350 [Miralax 17 gm PO QDAY #30 packet 11/05/18 02/21/19 Unknown Rx 3350] Aspirin EC [Halfprin EC] 81 mg PO DAILY #30 11/19/18 02/21/19 Unknown Rx Docusate Sodium [Colace CAP] 100 mg PO BID #60 11/19/18 02/21/19 Unknown Rx Folic Acid [Folvite] 1 mg PO DAILY #30 tab 11/19/18 02/21/19 Unknown Rx Famotidine [Pepcid] 20 mg PO DAILY tablet 12/08/18 02/21/19 Unknown Rx Gabapentin [Neurontin] 100 mg PO QHS capsule 12/08/18 02/21/19 Unknown Rx Metoprolol [Lopressor TAB] 50 mg PO BID 30 Days tablet 12/08/18 02/21/19 Unknown Rx Sevelamer Carbonate [Renvela] 800 mg PO TIDWM tablet 12/08/18 02/21/19 Unknown Rx hydrALAZINE [Apresoline TAB] 100 mg PO Q8HR #120 tablet 12/08/18 02/21/19 Unknown Rx Acetaminophen [Acetaminophen TAB] 650 mg PO Q12H PRN 12/15/18 02/21/19 Unknown History Glucagon,Human Recombinant 1 mg IJ Q15MIN PRN 12/15/18 02/21/19 Unknown History [Glucagon Emergency Kit] Insulin Aspart [NovoLOG 100 See Protocol SQ QWEEK 12/15/18 02/21/19 Unknown History UNITS/ML VIAL] Active Medications: Generic Name Dose Route Start Last Admin Trade Name Freq PRN Reason Stop Dose Admin Acetaminophen 650 mg 02/21/19 22:19 03/05/19 08:16 Tylenol PO 650 mg Q4H PRN Administration Pain MILD(1-3)/Fever >100.5/HILL Albuterol/Ipratropium 1 ampul 02/24/19 20:00 03/07/19 08:47 Duoneb *Not For Prn Use* IH 1 ampul TIDRT SANCHEZ Administration Lipase/Protease/Amylase 1 each 03/05/19 14:04 Pancreaze 10,500 Unit FEEDTUBE PRN PRN For Clogged Feeding Tube Dextrose 50 ml 02/21/19 22:22 03/03/19 17:37 D50w (25gm) Syringe IV 50 ml PRN PRN Administration Hypoglycemia Famotidine 20 mg 02/23/19 10:00 03/07/19 11:00 Pepcid PO 20 mg DAILY SANCHEZ Administration Heparin Sodium (Porcine) 5,000 unit 03/04/19 22:00 03/07/19 10:57 Heparin SUB-Q 5,000 unit Q12HR SANCHEZ Administration Hydrophilic Ointment 1 applic 02/21/19 18:24 03/05/19 08:16 Vaseline Lip Therapy TP 1 applic Q2HR PRN Administration Dry Lips Sodium Chloride 100 mls @ 999 mls/hr 02/26/19 09:00 Nacl 0.9% IV UMA PRN Hypotension Insulin Human Regular 0 units 02/26/19 12:00 03/07/19 06:29 Humulin R SUB-Q Not Given Q6HR [facility] Protocol Metoprolol Tartrate 2.5 mg 02/28/19 12:06 03/01/19 10:32 Lopressor IV 2.5 mg Q4HR PRN Administration Tachycardia Metoprolol Tartrate 25 mg 03/02/19 14:00 03/07/19 08:50 Lopressor PO 25 mg TID SANCHEZ Administration Multi-Ingred Cream/Lotion/Oil/Oint 1 applic 02/21/19 18:24 Artificial Tears Ophth Oint OU Q4HR PRN Dry Eye(s) Ondansetron HCl 4 mg 02/21/19 22:19 Zofran IV Q8H PRN Nausea And Vomiting Risperidone 1 mg 02/25/19 13:00 03/07/19 11:00 Risperdal PO 1 mg DAILY SANCHEZ Administration Sertraline HCl 100 mg 02/25/19 13:00 03/07/19 10:58 Zoloft PO 100 mg DAILY SANCHEZ Administration Simple Syrup 15 ml 03/05/19 14:04 Simple Syrup FEEDTUBE PRN PRN Hypoglycemia Simple Syrup 30 ml 03/05/19 14:04 Simple Syrup FEEDTUBE PRN PRN Hypoglycemia Sodium Bicarbonate 325 mg 03/05/19 14:04 Sodium Bicarbonate FEEDTUBE PRN PRN For Clogged Feeding Tube Sodium Chloride 10 ml 02/22/19 10:00 03/07/19 10:58 Sodium Chloride Flush Syringe 10 Ml IV 10 ml BID SANCHEZ Administration Sodium Chloride 10 ml 02/21/19 22:19 02/24/19 22:00 Sodium Chloride Flush Syringe 10 Ml IV 10 ml PRN PRN Administration LINE FLUSH Tramadol HCl 50 mg 03/05/19 10:08 03/06/19 10:59 Ultram PO 50 mg Q6H PRN Administration Pain, Moderate (4-6)
--- NOTE | 2019-03-07 14:02 | Progress Note ---
Assessment and Plan Assessment and plan: Patient is a 63-year-old -[place] man from [facility] with a plethora of co-morbidities including blindness, CVA, CHF, PPM/ICD, loop recorder since 2012 that is MRI compatible, IDDM type 2, sepsis left foot ulcer, afib, ESRD with complications on HD TTS, hypertension, AOCD and GERD who presented to the ED with hypotensive after intubation in the emergency room. Still intubated, diagnosed with fluid overload, pleural effusion. Patient has had recurrent admission in the hospital for similar reason and was recently discharged from the hospital following treatment of Severe Sepsis due to Necrotizing Unstagable sacral decubitus ulcer with ostemomylitis, expected to complete abx on discharge till 02/16/19. Trach and peg done and LTAC transfer with anticipated longer weaning process and wound care management. HR control improved with change in BB. Acute respiratory failure on mechanical ventilator >96 hrs - Currently on trach placed on 03/03 Pulm consult appreciated weaning trial VAP BUNDLE ASPIRATION BUNDLE Acute pulmonary edema, fluid overload on CXR repeat xray intermittently Dialysis Dilated CMP Continue diuresis Acute encephalopathy, probably metabolic or toxic Continues on Mechanical ventilator. ESRD on hemodialysis nephrology following Vascular eval. done re: LUE AV graft, see note Bilateral pleural effusions Anticipate improvement with Permanent atrial fibrillation and flutter Not on anticoagulation because of anemia thrombocytopenia Change noted to BB agent to IV. 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 -Pt is s/p x1 DDVAP RUL atelectasis, probably mucous plugging DVT prophylaxis Lovenox Full code status poor prognosis The high probability of a clinically significant, sudden or life threatening deterioration of the [pulmonary, neuro, renal] system(s) required my full and direct attention, intervention and personal management. The aggregate critical care time was [35] minutes. This time is in addition to time spent performing reported procedures but includes the following: [x] Data Review and interpretation [x] Patient assessment and monitoring of vital signs [] Documentation [x] Medication orders and management History Interval history: Patient was seen and evaluated this morning, Patient is on PEG and trach. Patient follow simple commands. Hospitalist Physical - Physical exam Narrative exam: Patient is on trach and PEG The patient appeared well nourished and normally developed. Vital signs as documented. Head exam is unremarkable. No scleral icterus . Neck is without jugular venous distension, thyromegaly, or carotid bruits. Lungs are clear to auscultation. Cardiac exam reveals regular rate and Rhythm. First and second heart sounds normal. No murmurs, rubs or gallops. Abdominal exam reveals PEG tube in place, colostomy bag in place. Extremities are nonedematous and both femoral and pedal pulses are normal. 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 - Constitutional Vitals: Temp Pulse Resp BP Pulse Ox 98.8 F 80 18 129/79 97 03/07/19 03:43 03/07/19 12:00 03/07/19 12:00 03/07/19 12:00 03/07/19 12:00 General appearance: Present: no acute distress Results - Labs CBC & Chem 7: 03/04/19 05:40 03/04/19 05:40 Labs: Laboratory Last Values WBC 6.8 K/mm3 (4.5-11.0) 03/04/19 05:40 RBC 2.63 M/mm3 (3.65-5.03) L 03/04/19 05:40 Hgb 7.2 gm/dl (11.8-15.2) L 03/04/19 05:40 Hct 22.2 % (35.5-45.6) L 03/04/19 05:40 MCV 84 fl (84-94) 03/04/19 05:40 MCH 28 pg (28-32) 03/04/19 05:40 MCHC 33 % (32-34) 03/04/19 05:40 RDW 20.2 % (13.2-15.2) H 03/04/19 05:40 Plt Count 233 K/mm3 (140-440) 03/04/19 05:40 Lymph % (Auto) 10.5 % (13.4-35.0) L 03/04/19 05:40 [place] % (Auto) 7.2 % (0.0-7.3) 03/04/19 05:40 Eos % (Auto) 4.6 % (0.0-4.3) H 03/04/19 05:40 Baso % (Auto) 0.8 % (0.0-1.8) 03/04/19 05:40 Lymph # 0.7 K/mm3 (1.2-5.4) L 03/04/19 05:40 Parmer # 0.5 K/mm3 (0.0-0.8) 03/04/19 05:40 Eos # 0.3 K/mm3 (0.0-0.4) 03/04/19 05:40 Baso # 0.1 K/mm3 (0.0-0.1) 03/04/19 05:40 Seg Neutrophils % 76.9 % (40.0-70.0) H 03/04/19 05:40 Seg Neutrophils # 5.2 K/mm3 (1.8-7.7) 03/04/19 05:40 PT 16.3 Sec. (12.2-14.9) H 03/01/19 09:39 INR 1.35 (0.87-1.13) H 03/01/19 09:39 APTT 33.7 Sec. (24.2-36.6) 02/21/19 18:30 2987.82 ng/mlDDU (0-234) H 02/22/19 05:54 POC ABG pH 7.483 (7.35-7.45) H 02/27/19 04:35 POC ABG pCO2 37.5 (35-45) 02/27/19 04:35 POC ABG pO2 61 (80-105) L 02/27/19 04:35 POC ABG HCO3 28.1 (22-26 mml/L) 02/27/19 04:35 POC ABG Total CO2 29 (23-27mmol/L) 02/27/19 04:35 POC ABG O2 Sat 93 02/27/19 04:35 POC ABG Base Excess 5 ((-2) - (+3)mmol/L) 02/27/19 04:35 30 % 02/27/19 04:35 Sodium 142 mmol/L (137-145) 03/04/19 05:40 Potassium 4.4 mmol/L (3.6-5.0) 03/04/19 05:40 Chloride 101.2 mmol/L (98-107) 03/04/19 05:40 Carbon Dioxide 30 mmol/L (22-30) 03/04/19 05:40 15 mmol/L 03/04/19 05:40 BUN 34 mg/dL (9-20) H 03/04/19 05:40 2.7 mg/dL (0.8-1.5) H 03/04/19 05:40 Estimated GFR 29 ml/min 03/04/19 05:40 13 % 03/04/19 05:40 Glucose 114 mg/dL (75-100) H 03/04/19 05:40 POC Glucose 103 (70-105) 03/07/19 12:14 Lactic Acid 1.00 mmol/L (0.7-2.0) 02/21/19 20:58 Calcium 9.8 mg/dL (8.4-10.2) 03/04/19 05:40 Phosphorus 2.30 mg/dL (2.5-4.5) L 03/02/19 05:15 Magnesium 2.20 mg/dL (1.7-2.3) 03/02/19 05:15 0.20 mg/dL (0.1-1.2) 02/21/19 18:30 AST 17 units/L (5-40) 02/21/19 18:30 ALT 7 units/L (7-56) 02/21/19 18:30 136 units/L (35-129) H 02/21/19 18:30 28.0 umol/L (25-60) 02/21/19 20:04 64 units/L (55-170) 02/22/19 03:42 CK-MB (CK-2) 3.7 ng/mL (0.0-4.0) 02/22/19 03:42 CK-MB (CK-2) Rel Index 5.7 (0-4) H 02/22/19 03:42 0.193 ng/mL (0.00-0.029) H* 02/22/19 03:42 6.7 g/dL (6.3-8.2) 02/21/19 18:30 2.4 g/dL (3.9-5) L 02/21/19 18:30 0.6 % 02/21/19 18:30 Triglycerides 51 mg/dL (2-149) 02/21/19 18:30 Cholesterol 82 mg/dL (50-199) 02/21/19 18:30 36 mg/dL (50-130) L 02/21/19 18:30 40 mg/dL (40-59) 02/21/19 18:30 2.05 % 02/21/19 18:30 TSH 2.760 mlU/mL (0.270-4.200) 02/21/19 20:04 PTH Intact 267.6 pg/mL (15-65) H 03/02/19 05:15 Salicylates < 0.3 mg/dL (2.8-20.0) L 02/21/19 20:04 Acetaminophen < 5.0 ug/mL (10.0-30.0) L 02/21/19 20:04 Hepatitis A IgM Ab Non-reactive (NonReactive) 02/23/19 11:20 Hep Bs Antigen Non-reactive (Negative) 02/23/19 11:20 Hep B Core IgM Ab Non-reactive (NonReactive) 02/23/19 11:20 Non-reactive (NonReactive) 02/23/19 11:20 Active Medications - Current Medications Current Medications: Generic Name Dose Route Start Last Admin Trade Name Fre PRN Reason Stop Dose Admin Acetaminophen 650 mg 02/21/19 22:19 03/05/19 08:16 Tylenol PO 650 mg Q4H PRN Administration Pain MILD(1-3)/Fever >100.5/HILL Albuterol/Ipratropium 1 ampul 02/24/19 20:00 03/07/19 08:47 Duoneb *Not For Prn Use* IH 1 ampul TIDRT SANCHEZ Administration Lipase/Protease/Amylase 1 each 03/05/19 14:04 Pancrejewel Barrientos 10,500 Unit FEEDTUBE PRN PRN For Clogged Feeding Tube Dextrose 50 ml 02/21/19 22:22 03/03/19 17:37 D50w (25gm) Syringe IV 50 ml PRN PRN Administration Hypoglycemia Famotidine 20 mg 02/23/19 10:00 03/07/19 11:00 Pepcid PO 20 mg DAILY SANCHEZ Administration Heparin Sodium (Porcine) 5,000 unit 03/04/19 22:00 03/07/19 10:57 Heparin SUB-Q 5,000 unit Q12HR SANCHEZ Administration Hydrophilic Ointment 1 applic 02/21/19 18:24 03/05/19 08:16 Vaseline Lip Therapy TP 1 applic Q2HR PRN Administration Dry Lips Sodium Chloride 100 mls @ 999 mls/hr 02/26/19 09:00 Nacl 0.9% IV UMA PRN Hypotension Insulin Human Regular 0 units 02/26/19 12:00 03/07/19 06:29 Humulin R SUB-Q Not Given Q6HR [facility] Protocol Metoprolol Tartrate 2.5 mg 02/28/19 12:06 03/01/19 10:32 Lopressor IV 2.5 mg Q4HR PRN Administration Tachycardia Metoprolol Tartrate 25 mg 03/02/19 14:00 03/07/19 08:50 Lopressor PO 25 mg TID SANCHEZ Administration Multi-Ingred Cream/Lotion/Oil/Oint 1 applic 02/21/19 18:24 Artificial Tears Ophth Oint OU Q4HR PRN Dry Eye(s) Ondansetron HCl 4 mg 02/21/19 22:19 Zofran IV Q8H PRN Nausea And Vomiting Risperidone 1 mg 02/25/19 13:00 03/07/19 11:00 Risperdal PO 1 mg DAILY SANCHEZ Administration Sertraline HCl 100 mg 02/25/19 13:00 03/07/19 10:58 Zoloft PO 100 mg DAILY SANCHEZ Administration Simple Syrup 15 ml 03/05/19 14:04 Simple Syrup FEEDTUBE PRN PRN Hypoglycemia Simple Syrup 30 ml 03/05/19 14:04 Simple Syrup FEEDTUBE PRN PRN Hypoglycemia Sodium Bicarbonate 325 mg 03/05/19 14:04 Sodium Bicarbonate FEEDTUBE PRN PRN For Clogged Feeding Tube Sodium Chloride 10 ml 02/22/19 10:00 03/07/19 10:58 Sodium Chloride Flush Syringe 10 Ml IV 10 ml BID SANCHEZ Administration Sodium Chloride 10 ml 02/21/19 22:19 02/24/19 22:00 Sodium Chloride Flush Syringe 10 Ml IV 10 ml PRN PRN Administration LINE FLUSH Tramadol HCl 50 mg 03/05/19 10:08 03/06/19 10:59 Ultram PO 50 mg Q6H PRN Administration Pain, Moderate (4-6) Nutrition/Malnutrition Assess - Dietary Evaluation Nutrition/Malnutrition Findings: Nutrition Notes Start: 02/22/19 12:51 Freq: Status: Active Protocol: Document 03/05/19 13:59 RM (Rec: 03/05/19 14:02 RM [email or web address]) Nutrition Notes Initial or Follow up Reassessment Current Diagnosis Diabetes,Hypertension Other Pertinent Diagnosis Sacral PU, ESRD on HD (T/ /Sat), Schizophrenia,Blind in L eye,S/P trach Current Diet NPO after midnight Labs/Tests Reviewed Pertinent Medications Reviewed Height 5 ft 10 in Weight 88.7 kg [place] Body Weight (kg) 75.45 BMI 28.0 Subjective/Other Information Trach placed yesterday. Observed Vital 1.2 infusing at goal rate. Per nurse pt is tolerating TF. Percent of energy/protein needs met: 100%/100% Burn Absent Trauma Absent #2 Nutrition Diagnosis Increased nutrient needs ( specify in comment below) Diagnosis Progress(for reassessment Continues documentation) #1 Nutrition Diagnosis Inadequate oral intake Diagnosis Progress(for reassessment Continues documentation) Is patient on ventilator? Yes Is Patient Ambulatory and/or Out of Bed No REE-([place]-confined to bed) 2023.976 Kcal/Kg value to use for calculation 18 Approximate Energy Requirements Using 1597 kcal/Kg Calculation Used for Recommendations Kcal/kg Additional Notes Protein Needs: 106-177g (1.2- 2g/kg) Fluid Needs: 1 ml/kcal Nutrition Intervention Nutrition Support: Vital 1.2 at 70 ml/hr Water flush of 100 mls q 4 hrs Kcal 2,016 Protein (gm) 126 Fluid (mL) 1,362 Add Supplement/Snack (indicate name/kcal Abhilash BID /protein ) Provides kCal: 190 Provides Protein (gm) 5 Goal #1 TF tolerance Goal #2 Continue to meet at least 80% of calorie and protein needs via TF Anticipated Discharge Needs: Unable to determine at this time Follow-Up By: 03/13/19 Additional Comments Follow for TF tolerance
[2019-03-08] MEDS: INSULIN REGULAR, HUMAN 100 UNITS/1 ML SUB-Q SCH ×4 (00:17→18:30)
[2019-03-08] MEDS: IPRATROPIUM/ALBUTEROL SULFATE 3 ML AMPUL.NEB IH SCH ×3 (08:55→20:44)
--- NOTE | 2019-03-08 10:30 | Progress Note ---
Assessment and Plan - Patient Problems (1) Pulmonary hypertension Current Visit: Yes Status: Acute (2) Dilated cardiomyopathy Current Visit: Yes Status: Acute (3) Encephalopathy Current Visit: Yes Status: Acute (4) ESRD (end stage renal disease) on dialysis Current Visit: Yes Status: Chronic (5) Acute HFrEF (heart failure with reduced ejection fraction) Current Visit: No Status: Acute (6) Altered mental status Current Visit: No Status: Acute Qualifiers: Altered mental status type: unspecified Qualified Code(s): R41.82 - Altered mental status, unspecified (7) Apneic episode Current Visit: No Status: Acute (8) Diabetes mellitus, insulin dependent (IDDM), uncontrolled Current Visit: No Status: Acute (9) Elevated lactic acid level Current Visit: No Status: Acute (10) Pneumothorax Current Visit: Yes Status: Suspected Subjective Principal diagnosis: respiratory failure Interval history: on vent SBT atempted this am. LAsted 45 mins but pt began having episodes of desaturation Now w emesis Objective Vital Signs - 12hr 03/07/19 03/07/19 03/08/19 23:00 23:56 00:00 Temperature 98.6 F Pulse Rate 79 79 Pulse Rate [ Anterior Bilateral Throughout] Pulse Rate [ 86 From Monitor] Respiratory 12 12 Rate Respiratory Rate [Anterior Bilateral Throughout] Blood Pressure 115/64 112/64 O2 Sat by Pulse 99 99 Oximetry 03/08/19 03/08/19 03/08/19 00:04 00:24 01:00 Temperature Pulse Rate 79 79 79 Pulse Rate [ Anterior Bilateral Throughout] Pulse Rate [ From Monitor] Respiratory 12 13 Rate Respiratory Rate [Anterior Bilateral Throughout] Blood Pressure 112/64 112/64 130/69 O2 Sat by Pulse 99 100 99 Oximetry 03/08/19 03/08/19 03/08/19 02:00 03:00 03:27 Temperature 99 F Pulse Rate 80 80 Pulse Rate [ Anterior Bilateral Throughout] Pulse Rate [ From Monitor] Respiratory 17 12 Rate Respiratory Rate [Anterior Bilateral Throughout] Blood Pressure 128/59 122/67 O2 Sat by Pulse 99 98 Oximetry 03/08/19 03/08/19 03/08/19 04:00 04:19 05:00 Temperature Pulse Rate 104 H 78 80 Pulse Rate [ Anterior Bilateral Throughout] Pulse Rate [ 79 From Monitor] Respiratory 14 20 Rate Respiratory Rate [Anterior Bilateral Throughout] Blood Pressure 128/70 128/63 O2 Sat by Pulse 96 100 100 Oximetry 03/08/19 03/08/19 03/08/19 06:00 07:00 08:00 Temperature 97.4 F L Pulse Rate 81 80 81 Pulse Rate [ Anterior Bilateral Throughout] Pulse Rate [ 81 From Monitor] Respiratory 12 14 10 L Rate Respiratory Rate [Anterior Bilateral Throughout] Blood Pressure 126/65 115/62 119/64 O2 Sat by Pulse 99 100 100 Oximetry 03/08/19 03/08/19 03/08/19 08:49 08:53 08:55 Temperature Pulse Rate 80 79 Pulse Rate [ 106 H Anterior Bilateral Throughout] Pulse Rate [ From Monitor] Respiratory 27 H Rate Respiratory 24 Rate [Anterior Bilateral Throughout] Blood Pressure 111/63 111/63 O2 Sat by Pulse 100 100 Oximetry 03/08/19 09:01 Temperature Pulse Rate 82 Pulse Rate [ Anterior Bilateral Throughout] Pulse Rate [ From Monitor] Respiratory 24 Rate Respiratory Rate [Anterior Bilateral Throughout] Blood Pressure 150/96 O2 Sat by Pulse 100 Oximetry Constitutional: no acute distress, other (critically ill on vent sp trach) Eyes: non-icteric Effort: normal Ascultation: Bilateral: diminished breath sounds Percussion: Bilateral: not dull Cardiovascular: regular rate and rhythm (no mrg) Gastrointestinal: normoactive bowel sounds, soft, non-tender, non-distended Extremities: no edema, pink and warm Neurologic: other (mild weakness LUE, o/w nonfocal) Psychiatric: mood appropriate, affect normal CBC and BMP: 03/04/19 05:40 03/04/19 05:40 ABG, PT/INR, D-dimer: ABG POC ABG pH 7.483 (7.35-7.45) H 02/27/19 04:35 POC ABG pCO2 37.5 (35-45) 02/27/19 04:35 POC ABG pO2 61 (80-105) L 02/27/19 04:35 POC ABG HCO3 28.1 (22-26 mml/L) 02/27/19 04:35 POC ABG Total CO2 29 (23-27mmol/L) 02/27/19 04:35 POC ABG O2 Sat 93 02/27/19 04:35 PT/INR, D-dimer PT 16.3 Sec. (12.2-14.9) H 03/01/19 09:39 INR 1.35 (0.87-1.13) H 03/01/19 09:39 2987.82 ng/mlDDU (0-234) H 02/22/19 05:54 Abnormal lab findings: Abnormal Labs 02/21/19 02/21/19 02/21/19 18:30 18:30 18:30 RBC 3.26 L Hgb 8.8 L Hct 29.0 L MCH 27 L MCHC 30 L RDW 19.1 H Lymph % (Auto) 6.1 L Gates % (Auto) Eos % (Auto) Lymph # 0.4 L Eos # Seg Neutrophils % 86.2 H PT INR D-Dimer POC ABG pH POC ABG pCO2 POC ABG pO2 Sodium 133 L Potassium 3.3 L Chloride 93.1 L Carbon Dioxide 33 H BUN Creatinine Glucose 161 H POC Glucose Phosphorus Alkaline Phosphatase 136 H Total Creatine Kinase 37 L CK-MB (CK-2) Rel Index Troponin T 0.192 H* Albumin 2.4 L LDL Cholesterol Direct 36 L PTH Intact Salicylates Acetaminophen 02/21/19 02/21/19 02/21/19 18:42 20:04 20:04 RBC Hgb Hct MCH MCHC RDW Lymph % (Auto) Gates % (Auto) Eos % (Auto) Lymph # Eos # Seg Neutrophils % PT INR D-Dimer POC ABG pH POC ABG pCO2 56.7 H POC ABG pO2 291 H Sodium Potassium Chloride Carbon Dioxide BUN Creatinine Glucose POC Glucose Phosphorus Alkaline Phosphatase Total Creatine Kinase CK-MB (CK-2) Rel Index Troponin T Albumin LDL Cholesterol Direct PTH Intact Salicylates < 0.3 L Acetaminophen < 5.0 L 02/21/19 02/22/19 02/22/19 22:35 03:42 03:42 RBC 3.20 L Hgb 8.8 L Hct 27.6 L MCH MCHC RDW 18.9 H Lymph % (Auto) 7.4 L Gates % (Auto) Eos % (Auto) Lymph # 0.7 L Eos # Seg Neutrophils % 84.7 H PT INR D-Dimer POC ABG pH POC ABG pCO2 POC ABG pO2 Sodium 134 L Potassium 2.6 L* D Chloride Carbon Dioxide BUN Creatinine Glucose POC Glucose Phosphorus Alkaline Phosphatase Total Creatine Kinase CK-MB (CK-2) Rel Index 5.2 H Troponin T 0.202 H* Albumin LDL Cholesterol Direct PTH Intact Salicylates Acetaminophen 02/22/19 02/22/19 02/22/19 03:42 05:54 09:04 RBC Hgb Hct MCH MCHC RDW Lymph % (Auto) Gates % (Auto) Eos % (Auto) Lymph # Eos # Seg Neutrophils % PT INR D-Dimer 2987.82 H POC ABG pH 7.451 H POC ABG pCO2 POC ABG pO2 Sodium Potassium Chloride Carbon Dioxide BUN Creatinine Glucose POC Glucose Phosphorus Alkaline Phosphatase Total Creatine Kinase CK-MB (CK-2) Rel Index 5.7 H Troponin T 0.193 H* Albumin LDL Cholesterol Direct PTH Intact Salicylates Acetaminophen 02/22/19 02/22/19 02/23/19 10:36 23:56 00:52 RBC Hgb Hct MCH MCHC RDW Lymph % (Auto) Gates % (Auto) Eos % (Auto) Lymph # Eos # Seg Neutrophils % PT INR D-Dimer POC ABG pH POC ABG pCO2 POC ABG pO2 Sodium Potassium 3.1 L Chloride Carbon Dioxide BUN Creatinine Glucose POC Glucose 58 L 111 H Phosphorus Alkaline Phosphatase Total Creatine Kinase CK-MB (CK-2) Rel Index Troponin T Albumin LDL Cholesterol Direct PTH Intact Salicylates Acetaminophen 02/23/19 02/23/19 02/23/19 05:00 06:35 14:26 RBC Hgb Hct MCH MCHC RDW Lymph % (Auto) Gates % (Auto) Eos % (Auto) Lymph # Eos # Seg Neutrophils % PT INR D-Dimer POC ABG pH POC ABG pCO2 POC ABG pO2 Sodium 135 L Potassium 3.1 L Chloride Carbon Dioxide BUN 21 H Creatinine 2.0 H Glucose 57 L POC Glucose 64 L 62 L Phosphorus Alkaline Phosphatase Total Creatine Kinase CK-MB (CK-2) Rel Index Troponin T Albumin LDL Cholesterol Direct PTH Intact Salicylates Acetaminophen 02/24/19 02/24/19 02/24/19 02:11 04:12 04:55 RBC 2.84 L Hgb 7.8 L Hct 24.5 L MCH MCHC RDW 19.5 H Lymph % (Auto) Gates % (Auto) Eos % (Auto) Lymph # Eos # Seg Neutrophils % PT INR D-Dimer POC ABG pH 7.511 H POC ABG pCO2 33.9 L POC ABG pO2 62 L Sodium Potassium Chloride Carbon Dioxide BUN Creatinine Glucose POC Glucose 69 L Phosphorus Alkaline Phosphatase Total Creatine Kinase CK-MB (CK-2) Rel Index Troponin T Albumin LDL Cholesterol Direct PTH Intact Salicylates Acetaminophen 02/24/19 02/24/19 02/25/19 04:55 05:41 04:45 RBC Hgb Hct MCH MCHC RDW Lymph % (Auto) Gates % (Auto) Eos % (Auto) Lymph # Eos # Seg Neutrophils % PT INR D-Dimer POC ABG pH 7.466 H POC ABG pCO2 POC ABG pO2 75 L Sodium Potassium Chloride Carbon Dioxide BUN Creatinine 1.8 H Glucose 73 L POC Glucose 127 H Phosphorus Alkaline Phosphatase Total Creatine Kinase CK-MB (CK-2) Rel Index Troponin T Albumin LDL Cholesterol Direct PTH Intact Salicylates Acetaminophen 02/25/19 02/25/19 02/26/19 16:34 21:33 03:45 RBC 2.96 L Hgb 8.0 L Hct 25.8 L MCH 27 L MCHC 31 L RDW 20.0 H Lymph % (Auto) Gates % (Auto) Eos % (Auto) Lymph # Eos # Seg Neutrophils % PT INR D-Dimer POC ABG pH POC ABG pCO2 POC ABG pO2 Sodium Potassium Chloride Carbon Dioxide BUN Creatinine Glucose POC Glucose 141 H 106 H Phosphorus Alkaline Phosphatase Total Creatine Kinase CK-MB (CK-2) Rel Index Troponin T Albumin LDL Cholesterol Direct PTH Intact Salicylates Acetaminophen 02/26/19 02/26/19 02/26/19 03:45 04:13 07:53 RBC Hgb Hct MCH MCHC RDW Lymph % (Auto) Gates % (Auto) Eos % (Auto) Lymph # Eos # Seg Neutrophils % PT INR D-Dimer POC ABG pH 7.470 H POC ABG pCO2 POC ABG pO2 Sodium Potassium Chloride Carbon Dioxide BUN Creatinine 1.8 H Glucose POC Glucose 110 H Phosphorus Alkaline Phosphatase Total Creatine Kinase CK-MB (CK-2) Rel Index Troponin T Albumin LDL Cholesterol Direct PTH Intact Salicylates Acetaminophen 02/26/19 02/26/19 02/27/19 11:56 17:43 00:12 RBC Hgb Hct MCH MCHC RDW Lymph % (Auto) Gates % (Auto) Eos % (Auto) Lymph # Eos # Seg Neutrophils % PT INR D-Dimer POC ABG pH POC ABG pCO2 POC ABG pO2 Sodium Potassium Chloride Carbon Dioxide BUN Creatinine Glucose POC Glucose 112 H 127 H 127 H Phosphorus Alkaline Phosphatase Total Creatine Kinase CK-MB (CK-2) Rel Index Troponin T Albumin LDL Cholesterol Direct PTH Intact Salicylates Acetaminophen 02/27/19 02/27/19 02/27/19 04:35 13:15 18:02 RBC Hgb Hct MCH MCHC RDW Lymph % (Auto) Gates % (Auto) Eos % (Auto) Lymph # Eos # Seg Neutrophils % PT INR D-Dimer POC ABG pH 7.483 H POC ABG pCO2 POC ABG pO2 61 L Sodium Potassium Chloride Carbon Dioxide BUN Creatinine Glucose POC Glucose 143 H 106 H Phosphorus Alkaline Phosphatase Total Creatine Kinase CK-MB (CK-2) Rel Index Troponin T Albumin LDL Cholesterol Direct PTH Intact Salicylates Acetaminophen 02/28/19 02/28/19 02/28/19 05:50 11:59 17:52 RBC Hgb Hct MCH MCHC RDW Lymph % (Auto) Gates % (Auto) Eos % (Auto) Lymph # Eos # Seg Neutrophils % PT INR D-Dimer POC ABG pH POC ABG pCO2 POC ABG pO2 Sodium Potassium Chloride Carbon Dioxide BUN Creatinine Glucose POC Glucose 134 H 128 H 142 H Phosphorus Alkaline Phosphatase Total Creatine Kinase CK-MB (CK-2) Rel Index Troponin T Albumin LDL Cholesterol Direct PTH Intact Salicylates Acetaminophen 02/28/19 03/01/19 03/01/19 23:13 05:40 09:39 RBC Hgb Hct MCH MCHC RDW Lymph % (Auto) Gates % (Auto) Eos % (Auto) Lymph # Eos # Seg Neutrophils % PT 16.3 H INR 1.35 H D-Dimer POC ABG pH POC ABG pCO2 POC ABG pO2 Sodium Potassium Chloride Carbon Dioxide BUN Creatinine Glucose POC Glucose 112 H 111 H Phosphorus Alkaline Phosphatase Total Creatine Kinase CK-MB (CK-2) Rel Index Troponin T Albumin LDL Cholesterol Direct PTH Intact Salicylates Acetaminophen 03/01/19 03/01/19 03/01/19 11:56 13:54 17:59 RBC Hgb Hct MCH MCHC RDW Lymph % (Auto) Gates % (Auto) Eos % (Auto) Lymph # Eos # Seg Neutrophils % PT INR D-Dimer POC ABG pH POC ABG pCO2 POC ABG pO2 Sodium Potassium Chloride Carbon Dioxide BUN 33 H Creatinine 2.8 H D Glucose 176 H POC Glucose 199 H 147 H Phosphorus Alkaline Phosphatase Total Creatine Kinase CK-MB (CK-2) Rel Index Troponin T Albumin LDL Cholesterol Direct PTH Intact Salicylates Acetaminophen 03/02/19 03/02/19 03/02/19 05:15 05:15 05:15 RBC 2.73 L Hgb 7.4 L Hct 23.0 L MCH 27 L MCHC RDW 19.9 H Lymph % (Auto) Gates % (Auto) 7.9 H Eos % (Auto) 7.6 H Lymph # 1.0 L Eos # 0.5 H Seg Neutrophils % PT INR D-Dimer POC ABG pH POC ABG pCO2 POC ABG pO2 Sodium Potassium Chloride Carbon Dioxide BUN 43 H Creatinine 3.2 H Glucose POC Glucose Phosphorus 2.30 L Alkaline Phosphatase Total Creatine Kinase CK-MB (CK-2) Rel Index Troponin T Albumin LDL Cholesterol Direct PTH Intact 267.6 H Salicylates Acetaminophen 03/02/19 03/02/19 03/03/19 12:32 18:20 13:30 RBC Hgb Hct MCH MCHC RDW Lymph % (Auto) Gates % (Auto) Eos % (Auto) Lymph # Eos # Seg Neutrophils % PT INR D-Dimer POC ABG pH POC ABG pCO2 POC ABG pO2 Sodium Potassium Chloride 97.3 L Carbon Dioxide BUN 26 H Creatinine 2.2 H Glucose 73 L POC Glucose 111 H 156 H Phosphorus Alkaline Phosphatase Total Creatine Kinase CK-MB (CK-2) Rel Index Troponin T Albumin LDL Cholesterol Direct PTH Intact Salicylates Acetaminophen 03/04/19 03/04/19 03/04/19 00:02 05:37 05:40 RBC 2.63 L Hgb 7.2 L Hct 22.2 L MCH MCHC RDW 20.2 H Lymph % (Auto) 10.5 L Gates % (Auto) Eos % (Auto) 4.6 H Lymph # 0.7 L Eos # Seg Neutrophils % 76.9 H PT INR D-Dimer POC ABG pH POC ABG pCO2 POC ABG pO2 Sodium Potassium Chloride Carbon Dioxide BUN Creatinine Glucose POC Glucose 136 H 123 H Phosphorus Alkaline Phosphatase Total Creatine Kinase CK-MB (CK-2) Rel Index Troponin T Albumin LDL Cholesterol Direct PTH Intact Salicylates Acetaminophen 03/04/19 03/04/19 03/04/19 05:40 11:39 23:20 RBC Hgb Hct MCH MCHC RDW Lymph % (Auto) Gates % (Auto) Eos % (Auto) Lymph # Eos # Seg Neutrophils % PT INR D-Dimer POC ABG pH POC ABG pCO2 POC ABG pO2 Sodium Potassium Chloride Carbon Dioxide BUN 34 H Creatinine 2.7 H Glucose 114 H POC Glucose 175 H 151 H Phosphorus Alkaline Phosphatase Total Creatine Kinase CK-MB (CK-2) Rel Index Troponin T Albumin LDL Cholesterol Direct PTH Intact Salicylates Acetaminophen 03/05/19 03/05/19 03/05/19 05:37 12:08 17:11 RBC Hgb Hct MCH MCHC RDW Lymph % (Auto) Gates % (Auto) Eos % (Auto) Lymph # Eos # Seg Neutrophils % PT INR D-Dimer POC ABG pH POC ABG pCO2 POC ABG pO2 Sodium Potassium Chloride Carbon Dioxide BUN Creatinine Glucose POC Glucose 134 H 135 H 135 H Phosphorus Alkaline Phosphatase Total Creatine Kinase CK-MB (CK-2) Rel Index Troponin T Albumin LDL Cholesterol Direct PTH Intact Salicylates Acetaminophen 03/06/19 03/06/19 03/06/19 00:16 13:05 18:09 RBC Hgb Hct MCH MCHC RDW Lymph % (Auto) Gates % (Auto) Eos % (Auto) Lymph # Eos # Seg Neutrophils % PT INR D-Dimer POC ABG pH POC ABG pCO2 POC ABG pO2 Sodium Potassium Chloride Carbon Dioxide BUN Creatinine Glucose POC Glucose 117 H 113 H 131 H Phosphorus Alkaline Phosphatase Total Creatine Kinase CK-MB (CK-2) Rel Index Troponin T Albumin LDL Cholesterol Direct PTH Intact Salicylates Acetaminophen 03/07/19 03/08/19 05:25 05:33 RBC Hgb Hct MCH MCHC RDW Lymph % (Auto) Gates % (Auto) Eos % (Auto) Lymph # Eos # Seg Neutrophils % PT INR D-Dimer POC ABG pH POC ABG pCO2 POC ABG pO2 Sodium Potassium Chloride Carbon Dioxide BUN Creatinine Glucose POC Glucose 106 H 108 H Phosphorus Alkaline Phosphatase Total Creatine Kinase CK-MB (CK-2) Rel Index Troponin T Albumin LDL Cholesterol Direct PTH Intact Salicylates Acetaminophen Chest x-ray: report reviewed, image reviewed
[2019-03-08] MEDS: HEPARIN 5,000 UNIT/1 ML VIAL SUB-Q SCH ×2 (10:37→21:30)
[2019-03-08] MEDS: FAMOTIDINE 20 MG TAB PO SCH (10:37)
[2019-03-08] MEDS: SERTRALINE 100 MG TAB PO SCH (10:37)
[2019-03-08] MEDS: risperiDONE 1 MG TAB PO SCH (10:37)
[2019-03-08] MEDS: METOPROLOL TARTRATE 25 MG TAB PO SCH ×3 (10:37→21:30)
--- NOTE | 2019-03-08 12:35 | XRay Report ---
CHEST 1 VIEW INDICATION: on vent ptx COMPARISON: 03/07/2019 FINDINGS: Support devices: Unchanged. Heart: Moderately enlarged, increased slightly since the previous exam. Lungs/Pleura: Diffuse pulmonary edema persists and may have worsened slightly. IMPRESSION: 1. Slight increase in heart size and worsened pulmonary edema. Signer Name: Detla Coleman MD Signed: 03/08/2019 12:30 PM Workstation Name: [email or web address]
--- NOTE | 2019-03-08 12:45 | XRay Report ---
ABDOMEN 1 VIEW(S) INDICATION: emesis on vent COMPARISON: None available. FINDINGS: Gastrostomy tube is in place and its tip appears to be in the stomach Bowel gas pattern: Within normal limits. No dilated loops of large or small bowel. Free air: None. Calcified gallstones: None seen. Calcified urinary tract calculi: None seen. Additional Findings: None. Skeletal structures: No acute abnormality. IMPRESSION: 1. No acute findings. Signer Name: Young Titus MD Signed: 03/08/2019 12:40 PM Workstation Name: [email or web address]
--- NOTE | 2019-03-08 13:17 | Progress Note ---
Assessment and Plan Assessment: * End stage renal disease (outpatient TTS schedule) * Acute hypoxic respiratory failure on mechanical ventilation * Atrial fibrillation * History of CVA * Anemia secondary to ESRD * Secondary hyperparathyroidism Plan * Continue HD MWF schedule for now * UF as tolerated * AVG in use. Vascular surgery following, notes reviewed; RIJ permcath removal prior to d/c * Empiric abx per ID/primary team * Nutrition per primary team * Dose medications for renal function * Epogen TID prn Subjective Date of service: 03/08/19 Principal diagnosis: respiratory failure Interval history: No acute events Objective - Vital Signs Vital signs: Vital Signs - 12hr 03/08/19 03/08/19 03/08/19 02:00 03:00 03:27 Temperature 99 F Pulse Rate 80 80 Pulse Rate [ Anterior Bilateral Throughout] Pulse Rate [ From Monitor] Respiratory 17 12 Rate Respiratory Rate [Anterior Bilateral Throughout] Blood Pressure 128/59 122/67 O2 Sat by Pulse 99 98 Oximetry 03/08/19 03/08/19 03/08/19 04:00 04:19 05:00 Temperature Pulse Rate 104 H 78 80 Pulse Rate [ Anterior Bilateral Throughout] Pulse Rate [ 79 From Monitor] Respiratory 14 20 Rate Respiratory Rate [Anterior Bilateral Throughout] Blood Pressure 128/70 128/63 O2 Sat by Pulse 96 100 100 Oximetry 03/08/19 03/08/19 03/08/19 06:00 07:00 08:00 Temperature 97.4 F L Pulse Rate 81 80 80 Pulse Rate [ Anterior Bilateral Throughout] Pulse Rate [ 81 From Monitor] Respiratory 12 14 10 L Rate Respiratory Rate [Anterior Bilateral Throughout] Blood Pressure 126/65 115/62 119/64 O2 Sat by Pulse 99 100 100 Oximetry 03/08/19 03/08/19 03/08/19 08:49 08:53 08:55 Temperature Pulse Rate 80 79 Pulse Rate [ 106 H Anterior Bilateral Throughout] Pulse Rate [ From Monitor] Respiratory 27 H Rate Respiratory 24 Rate [Anterior Bilateral Throughout] Blood Pressure 111/63 111/63 O2 Sat by Pulse 100 100 Oximetry 03/08/19 03/08/19 03/08/19 09:01 10:00 10:37 Temperature Pulse Rate 82 92 H 89 Pulse Rate [ Anterior Bilateral Throughout] Pulse Rate [ From Monitor] Respiratory 24 12 Rate Respiratory Rate [Anterior Bilateral Throughout] Blood Pressure 150/96 123/67 140/74 O2 Sat by Pulse 100 99 Oximetry 03/08/19 03/08/19 03/08/19 11:00 12:00 12:01 Temperature 97.8 F Pulse Rate 81 90 80 Pulse Rate [ Anterior Bilateral Throughout] Pulse Rate [ 80 From Monitor] Respiratory 15 Rate Respiratory Rate [Anterior Bilateral Throughout] Blood Pressure 129/73 135/66 O2 Sat by Pulse 100 100 100 Oximetry 03/08/19 12:27 Temperature Pulse Rate 80 Pulse Rate [ Anterior Bilateral Throughout] Pulse Rate [ From Monitor] Respiratory Rate Respiratory Rate [Anterior Bilateral Throughout] Blood Pressure 135/66 O2 Sat by Pulse 100 Oximetry - General Appearance General appearance: chronically ill, intubated, frail EENT: ATNC Neck: other (ETT in place) Respiratory: Present: Other (coarse BS) Cardiology: regular, S1S2 Gastrointestinal: normal, other (PEG, colostomy) Integumentary: warm and dry Psychiatric: other (no edema) - Lab 03/08/19 16:00 03/08/19 16:00 Most recent lab results Calcium 9.8 mg/dL (8.4-10.2) 03/04/19 05:40 Phosphorus 2.30 mg/dL (2.5-4.5) L 03/02/19 05:15 Magnesium 2.20 mg/dL (1.7-2.3) 03/02/19 05:15 Medications & Allergies - Medications Allergies/Adverse Reactions: Allergies haloperidol [From Haldol] Adverse Reaction (Verified 03/13/18 12:10) Unknown haloperidol lactate [From Haldol] Adverse Reaction (Verified 03/13/18 12:10) Unknown Home Medications: Home Medications Medication Instructions Recorded Confirmed Last Taken Type risperiDONE [RisperDAL] 1 mg PO QAM 03/13/18 02/21/19 Unknown History Sertraline [Zoloft] 100 mg PO QDAY 08/26/18 02/21/19 Unknown History Polyethylene Glycol 3350 [Miralax 17 gm PO QDAY #30 packet 11/05/18 02/21/19 Unknown Rx 3350] Aspirin EC [Halfprin EC] 81 mg PO DAILY #30 11/19/18 02/21/19 Unknown Rx Docusate Sodium [Colace CAP] 100 mg PO BID #60 11/19/18 02/21/19 Unknown Rx Folic Acid [Folvite] 1 mg PO DAILY #30 tab 11/19/18 02/21/19 Unknown Rx Famotidine [Pepcid] 20 mg PO DAILY tablet 12/08/18 02/21/19 Unknown Rx Gabapentin [Neurontin] 100 mg PO QHS capsule 12/08/18 02/21/19 Unknown Rx Metoprolol [Lopressor TAB] 50 mg PO BID 30 Days tablet 12/08/18 02/21/19 Unknown Rx Sevelamer Carbonate [Renvela] 800 mg PO TIDWM tablet 12/08/18 02/21/19 Unknown Rx hydrALAZINE [Apresoline TAB] 100 mg PO Q8HR #120 tablet 12/08/18 02/21/19 Unknown Rx Acetaminophen [Acetaminophen TAB] 650 mg PO Q12H PRN 12/15/18 02/21/19 Unknown History Glucagon,Human Recombinant 1 mg IJ Q15MIN PRN 12/15/18 02/21/19 Unknown History [Glucagon Emergency Kit] Insulin Aspart [NovoLOG 100 See Protocol SQ QWEEK 12/15/18 02/21/19 Unknown History UNITS/ML VIAL] Active Medications: Generic Name Dose Route Start Last Admin Trade Name Freq PRN Reason Stop Dose Admin Acetaminophen 650 mg 02/21/19 22:19 03/05/19 08:16 Tylenol PO 650 mg Q4H PRN Administration Pain MILD(1-3)/Fever >100.5/HILL Albuterol/Ipratropium 1 ampul 02/24/19 20:00 03/08/19 08:55 Duoneb *Not For Prn Use* IH 1 ampul TIDRT SANCHEZ Administration Lipase/Protease/Amylase 1 each 03/05/19 14:04 Pancrejewel Barrientos 10,500 Unit FEEDTUBE PRN PRN For Clogged Feeding Tube Dextrose 50 ml 02/21/19 22:22 03/03/19 17:37 D50w (25gm) Syringe IV 50 ml PRN PRN Administration Hypoglycemia Famotidine 20 mg 02/23/19 10:00 03/08/19 10:37 Pepcid PO 20 mg DAILY SANCHEZ Administration Heparin Sodium (Porcine) 5,000 unit 03/04/19 22:00 03/08/19 10:37 Heparin SUB-Q 5,000 unit Q12HR SANCHEZ Administration Hydrophilic Ointment 1 applic 02/21/19 18:24 03/05/19 08:16 Vaseline Lip Therapy TP 1 applic Q2HR PRN Administration Dry Lips Sodium Chloride 100 mls @ 999 mls/hr 02/26/19 09:00 Nacl 0.9% IV UMA PRN Hypotension Insulin Human Regular 0 units 02/26/19 12:00 03/08/19 05:33 Humulin R SUB-Q Not Given Q6HR [facility] Protocol Metoprolol Tartrate 2.5 mg 02/28/19 12:06 03/01/19 10:32 Lopressor IV 2.5 mg Q4HR PRN Administration Tachycardia Metoprolol Tartrate 25 mg 03/02/19 14:00 03/08/19 10:37 Lopressor PO 25 mg TID SANCHEZ Administration Multi-Ingred Cream/Lotion/Oil/Oint 1 applic 02/21/19 18:24 Artificial Tears Ophth Oint OU Q4HR PRN Dry Eye(s) Ondansetron HCl 4 mg 02/21/19 22:19 Zofran IV Q8H PRN Nausea And Vomiting Risperidone 1 mg 02/25/19 13:00 03/08/19 10:37 Risperdal PO 1 mg DAILY SANCHEZ Administration Sertraline HCl 100 mg 02/25/19 13:00 03/08/19 10:37 Zoloft PO 100 mg DAILY SANCHEZ Administration Simple Syrup 15 ml 03/05/19 14:04 Simple Syrup FEEDTUBE PRN PRN Hypoglycemia Simple Syrup 30 ml 03/05/19 14:04 Simple Syrup FEEDTUBE PRN PRN Hypoglycemia Sodium Bicarbonate 325 mg 03/05/19 14:04 Sodium Bicarbonate FEEDTUBE PRN PRN For Clogged Feeding Tube Sodium Chloride 10 ml 02/22/19 10:00 03/08/19 10:38 Sodium Chloride Flush Syringe 10 Ml IV 10 ml BID SANCHEZ Administration Sodium Chloride 10 ml 02/21/19 22:19 02/24/19 22:00 Sodium Chloride Flush Syringe 10 Ml IV 10 ml PRN PRN Administration LINE FLUSH Tramadol HCl 50 mg 03/05/19 10:08 03/06/19 10:59 Ultram PO 50 mg Q6H PRN Administration Pain, Moderate (4-6)
--- NOTE | 2019-03-08 13:59 | Progress Note ---
Assessment and Plan Assessment and plan: Patient is a 63-year-old -[place] man from [facility] with a plethora of co-morbidities including blindness, CVA, CHF, PPM/ICD, loop recorder since 2012 that is MRI compatible, IDDM type 2, sepsis left foot ulcer, afib, ESRD with complications on HD TTS, hypertension, AOCD and GERD who presented to the ED with hypotensive after intubation in the emergency room. Still intubated, diagnosed with fluid overload, pleural effusion. Patient has had recurrent admission in the hospital for similar reason and was recently discharged from the hospital following treatment of Severe Sepsis due to Necrotizing Unstagable sacral decubitus ulcer with ostemomylitis, expected to complete abx on discharge till 02/16/19. Trach and peg done and LTAC transfer with anticipated longer weaning process an d wound care management. HR control improved with change in BB. Acute respiratory failure on mechanical ventilator >96 hrs - Currently on trach placed on 03/03 Pulm consult appreciated weaning trial VAP BUNDLE ASPIRATION BUNDLE Acute pulmonary edema, fluid overload on CXR repeat xray intermittently Dialysis Dilated CMP Continue diuresis Acute encephalopathy, probably metabolic or toxic Continues on Mechanical ventilator. ESRD on hemodialysis nephrology following Vascular eval. done re: LUE AV graft, see note Bilateral pleural effusions Anticipate improvement with Permanent atrial fibrillation and flutter Not on anticoagulation because of anemia thrombocytopenia Change noted to BB agent to IV. 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 -Pt is s/p x1 DDVAP RUL atelectasis, probably mucous plugging DVT prophylaxis Lovenox Full code status poor prognosis The high probability of a clinically significant, sudden or life threatening deterioration of the [pulmonary, neuro, renal] system(s) required my full and direct attention, intervention and personal management. The aggregate critical care time was [35] minutes. This time is in addition to time spent performing reported procedures but includes the following: [x] Data Review and interpretation [x] Patient assessment and monitoring of vital signs [] Documentation [x] Medication orders and management History Interval history: no fevers remains demented no vomiting, no agitation, no seizures Hospitalist Physical - Physical exam Narrative exam: Constitutional: no acute distress, opens eyes, says hello Eyes: non-icteric ENT: oropharynx moist Neck: supple Effort: normal Ascultation: Bilateral: other (coarse BS bilaterally) Percussion: Bilateral: not dull Cardiovascular: regular rate and rhythm (no mrg) Gastrointestinal: normoactive bowel sounds, soft, non-tender, non-distended, other (ostomy in place, brown stool) Extremities: no cyanosis, no edema, pink and warm Neurologic: other (mild weakness LUE, o/w nonfocal), demented Psychiatric: other (unable to assess) SKIN; Left 5th finger, stage 4 pressure ulcer,Left heel, deep tissue injury, Sacrum, stage 4 pressure ulcer POA - Constitutional Vitals: Temp Pulse Resp BP Pulse Ox 97.8 F 80 15 135/66 100 03/08/19 12:00 03/08/19 12:27 03/08/19 12:00 03/08/19 12:27 03/08/19 12:27 General appearance: Present: no acute distress Results - Labs CBC & Chem 7: 03/31/19 10:26 03/31/19 10:26 Labs: Laboratory Last Values WBC 6.8 K/mm3 (4.5-11.0) 03/04/19 05:40 RBC 2.63 M/mm3 (3.65-5.03) L 03/04/19 05:40 Hgb 7.2 gm/dl (11.8-15.2) L 03/04/19 05:40 Hct 22.2 % (35.5-45.6) L 03/04/19 05:40 MCV 84 fl (84-94) 03/04/19 05:40 MCH 28 pg (28-32) 03/04/19 05:40 MCHC 33 % (32-34) 03/04/19 05:40 RDW 20.2 % (13.2-15.2) H 03/04/19 05:40 Plt Count 233 K/mm3 (140-440) 03/04/19 05:40 Lymph % (Auto) 10.5 % (13.4-35.0) L 03/04/19 05:40 [place] % (Auto) 7.2 % (0.0-7.3) 03/04/19 05:40 Eos % (Auto) 4.6 % (0.0-4.3) H 03/04/19 05:40 Baso % (Auto) 0.8 % (0.0-1.8) 03/04/19 05:40 Lymph # 0.7 K/mm3 (1.2-5.4) L 03/04/19 05:40 [place] # 0.5 K/mm3 (0.0-0.8) 03/04/19 05:40 Eos # 0.3 K/mm3 (0.0-0.4) 03/04/19 05:40 Baso # 0.1 K/mm3 (0.0-0.1) 03/04/19 05:40 Seg Neutrophils % 76.9 % (40.0-70.0) H 03/04/19 05:40 Seg Neutrophils # 5.2 K/mm3 (1.8-7.7) 03/04/19 05:40 PT 16.3 Sec. (12.2-14.9) H 03/01/19 09:39 INR 1.35 (0.87-1.13) H 03/01/19 09:39 APTT 33.7 Sec. (24.2-36.6) 02/21/19 18:30 2987.82 ng/mlDDU (0-234) H 02/22/19 05:54 POC ABG pH 7.483 (7.35-7.45) H 02/27/19 04:35 POC ABG pCO2 37.5 (35-45) 02/27/19 04:35 POC ABG pO2 61 (80-105) L 02/27/19 04:35 POC ABG HCO3 28.1 (22-26 mml/L) 02/27/19 04:35 POC ABG Total CO2 29 (23-27mmol/L) 02/27/19 04:35 POC ABG O2 Sat 93 02/27/19 04:35 POC ABG Base Excess 5 ((-2) - (+3)mmol/L) 02/27/19 04:35 30 % 02/27/19 04:35 Sodium 142 mmol/L (137-145) 03/04/19 05:40 Potassium 4.4 mmol/L (3.6-5.0) 03/04/19 05:40 Chloride 101.2 mmol/L (98-107) 03/04/19 05:40 Carbon Dioxide 30 mmol/L (22-30) 03/04/19 05:40 15 mmol/L 03/04/19 05:40 BUN 34 mg/dL (9-20) H 03/04/19 05:40 2.7 mg/dL (0.8-1.5) H 03/04/19 05:40 Estimated GFR 29 ml/min 03/04/19 05:40 13 % 03/04/19 05:40 Glucose 114 mg/dL (75-100) H 03/04/19 05:40 POC Glucose 81 (70-105) 03/08/19 12:41 Lactic Acid 1.00 mmol/L (0.7-2.0) 02/21/19 20:58 Calcium 9.8 mg/dL (8.4-10.2) 03/04/19 05:40 Phosphorus 2.30 mg/dL (2.5-4.5) L 03/02/19 05:15 Magnesium 2.20 mg/dL (1.7-2.3) 03/02/19 05:15 0.20 mg/dL (0.1-1.2) 02/21/19 18:30 AST 17 units/L (5-40) 02/21/19 18:30 ALT 7 units/L (7-56) 02/21/19 18:30 136 units/L (35-129) H 02/21/19 18:30 28.0 umol/L (25-60) 02/21/19 20:04 64 units/L (55-170) 02/22/19 03:42 CK-MB (CK-2) 3.7 ng/mL (0.0-4.0) 02/22/19 03:42 CK-MB (CK-2) Rel Index 5.7 (0-4) H 02/22/19 03:42 0.193 ng/mL (0.00-0.029) H* 02/22/19 03:42 6.7 g/dL (6.3-8.2) 02/21/19 18:30 2.4 g/dL (3.9-5) L 02/21/19 18:30 0.6 % 02/21/19 18:30 Triglycerides 51 mg/dL (2-149) 02/21/19 18:30 Cholesterol 82 mg/dL (50-199) 02/21/19 18:30 36 mg/dL (50-130) L 02/21/19 18:30 40 mg/dL (40-59) 02/21/19 18:30 2.05 % 02/21/19 18:30 TSH 2.760 mlU/mL (0.270-4.200) 02/21/19 20:04 PTH Intact 267.6 pg/mL (15-65) H 03/02/19 05:15 Salicylates < 0.3 mg/dL (2.8-20.0) L 02/21/19 20:04 Acetaminophen < 5.0 ug/mL (10.0-30.0) L 02/21/19 20:04 Hepatitis A IgM Ab Non-reactive (NonReactive) 02/23/19 11:20 Hep Bs Antigen Non-reactive (Negative) 02/23/19 11:20 Hep B Core IgM Ab Non-reactive (NonReactive) 02/23/19 11:20 Non-reactive (NonReactive) 02/23/19 11:20 Active Medications - Current Medications Current Medications: Generic Name Dose Route Start Last Admin Trade Name Freq PRN Reason Stop Dose Admin Acetaminophen 650 mg 02/21/19 22:19 03/05/19 08:16 Tylenol PO 650 mg Q4H PRN Administration Pain MILD(1-3)/Fever >100.5/HILL Albuterol/Ipratropium 1 ampul 02/24/19 20:00 03/08/19 08:55 Duoneb *Not For Prn Use* IH 1 ampul TIDRT SANCHEZ Administration Lipase/Protease/Amylase 1 each 03/05/19 14:04 Pancreaze 10,500 Unit FEEDTUBE PRN PRN For Clogged Feeding Tube Dextrose 50 ml 02/21/19 22:22 03/03/19 17:37 D50w (25gm) Syringe IV 50 ml PRN PRN Administration Hypoglycemia Famotidine 20 mg 02/23/19 10:00 03/08/19 10:37 Pepcid PO 20 mg DAILY SANCHEZ Administration Heparin Sodium (Porcine) 5,000 unit 03/04/19 22:00 03/08/19 10:37 Heparin SUB-Q 5,000 unit Q12HR SANCHEZ Administration Hydrophilic Ointment 1 applic 02/21/19 18:24 03/05/19 08:16 Vaseline Lip Therapy TP 1 applic Q2HR PRN Administration Dry Lips Sodium Chloride 100 mls @ 999 mls/hr 02/26/19 09:00 Nacl 0.9% IV UMA PRN Hypotension Insulin Human Regular 0 units 02/26/19 12:00 03/08/19 05:33 Humulin R SUB-Q Not Given Q6HR [facility] Protocol Metoprolol Tartrate 2.5 mg 02/28/19 12:06 03/01/19 10:32 Lopressor IV 2.5 mg Q4HR PRN Administration Tachycardia Metoprolol Tartrate 25 mg 03/02/19 14:00 03/08/19 10:37 Lopressor PO 25 mg TID SANCHEZ Administration Multi-Ingred Cream/Lotion/Oil/Oint 1 applic 02/21/19 18:24 Artificial Tears Ophth Oint OU Q4HR PRN Dry Eye(s) Ondansetron HCl 4 mg 02/21/19 22:19 Zofran IV Q8H PRN Nausea And Vomiting Risperidone 1 mg 02/25/19 13:00 03/08/19 10:37 Risperdal PO 1 mg DAILY SANCHEZ Administration Sertraline HCl 100 mg 02/25/19 13:00 03/08/19 10:37 Zoloft PO 100 mg DAILY SANCHEZ Administration Simple Syrup 15 ml 03/05/19 14:04 Simple Syrup FEEDTUBE PRN PRN Hypoglycemia Simple Syrup 30 ml 03/05/19 14:04 Simple Syrup FEEDTUBE PRN PRN Hypoglycemia Sodium Bicarbonate 325 mg 03/05/19 14:04 Sodium Bicarbonate FEEDTUBE PRN PRN For Clogged Feeding Tube Sodium Chloride 10 ml 02/22/19 10:00 03/08/19 10:38 Sodium Chloride Flush Syringe 10 Ml IV 10 ml BID SANCHEZ Administration Sodium Chloride 10 ml 02/21/19 22:19 02/24/19 22:00 Sodium Chloride Flush Syringe 10 Ml IV 10 ml PRN PRN Administration LINE FLUSH Tramadol HCl 50 mg 03/05/19 10:08 03/06/19 10:59 Ultram PO 50 mg Q6H PRN Administration Pain, Moderate (4-6) Nutrition/Malnutrition Assess - Dietary Evaluation Nutrition/Malnutrition Findings: Nutrition Notes Start: 02/22/19 12:51 Freq: Status: Active Protocol: Document 03/05/19 13:59 RM (Rec: 03/05/19 14:02 RM [id number]) Nutrition Notes Initial or Follow up Reassessment Current Diagnosis Diabetes,Hypertension Other Pertinent Diagnosis Sacral PU, ESRD on HD (T/ /Sat), Schizophrenia,Blind in L eye,S/P trach Current Diet NPO after midnight Labs/Tests Reviewed Pertinent Medications Reviewed Height 5 ft 10 in Weight 88.7 kg [place] Body Weight (kg) 75.45 BMI 28.0 Subjective/Other Information Trach placed yesterday. Observed Vital 1.2 infusing at goal rate. Per nurse pt is tolerating TF. Percent of energy/protein needs met: 100%/100% Burn Absent Trauma Absent #2 Nutrition Diagnosis Increased nutrient needs ( specify in comment below) Diagnosis Progress(for reassessment Continues documentation) #1 Nutrition Diagnosis Inadequate oral intake Diagnosis Progress(for reassessment Continues documentation) Is patient on ventilator? Yes Is Patient Ambulatory and/or Out of Bed No REE-([facility]-confined to bed) 2023.976 Kcal/Kg value to use for calculation 18 Approximate Energy Requirements Using 1597 kcal/Kg Calculation Used for Recommendations Kcal/kg Additional Notes Protein Needs: 106-177g (1.2- 2g/kg) Fluid Needs: 1 ml/kcal Nutrition Intervention Nutrition Support: Vital 1.2 at 70 ml/hr Water flush of 100 mls q 4 hrs Kcal 2,016 Protein (gm) 126 Fluid (mL) 1,362 Add Supplement/Snack (indicate name/kcal Abhilash BID /protein ) Provides kCal: 190 Provides Protein (gm) 5 Goal #1 TF tolerance Goal #2 Continue to meet at least 80% of calorie and protein needs via TF Anticipated Discharge Needs: Unable to determine at this time Follow-Up By: 03/13/19 Additional Comments Follow for TF tolerance
[2019-03-08 16:23] LABS: Basophils # (Auto) 0.1 K/mm3 (0.0-0.1); Basophils % (Auto) 1.3 % (0.0-1.8); Eosinophils # (Auto) 0.5 K/mm3 (0.0-0.4); Eosinophils % (Auto) 8.6 % (0.0-4.3); Hematocrit 20.8 % (35.5-45.6); Hemoglobin 6.6 gm/dl (11.8-15.2); Lymphocytes # (Auto) 0.8 K/mm3 (1.2-5.4); Lymphocytes % (Auto) 13.6 % (13.4-35.0); Mean Corpuscular HGB Conc 32 % (32-34); Mean Corpuscular Volume 85 fl (84-94); Monocytes # (Auto) 0.4 K/mm3 (0.0-0.8); Monocytes % (Auto) 5.8 % (0.0-7.3); Platelet Count 315 K/mm3 (140-440); Red Blood Count 2.44 M/mm3 (3.65-5.03); Red Cell Distribution Width 19.2 % (13.2-15.2)
[2019-03-08 16:53] LABS: Albumin 2.2 g/dL (3.9-5); BUN/Creatinine Ratio 18; Blood Urea Nitrogen 47 mg/dL (9-20); Hemolysis Index 1
[2019-03-08] MEDS: traMADol 50 MG TAB PO PRN (16:54)
[2019-03-08 16:58] LABS: Alanine Aminotransferase < 5 units/L (7-56)
[2019-03-08] MEDS ORDERED: SODIUM POLYSTYRENE 15 GM/60 ML ORAL LIQD PO ONE (20:00)
[2019-03-08] MEDS ORDERED: SODIUM CHLORIDE 0.9% 500 ML 500 ML IV ONE (20:00)
[2019-03-09] MEDS: INSULIN REGULAR, HUMAN 100 UNITS/1 ML SUB-Q SCH ×4 (00:34→18:00)
[2019-03-09] MEDS: IPRATROPIUM/ALBUTEROL SULFATE 3 ML AMPUL.NEB IH SCH ×3 (08:00→19:51)
[2019-03-09] MEDS: METOPROLOL TARTRATE 25 MG TAB PO SCH ×3 (08:00→22:17)
[2019-03-09] MEDS: FAMOTIDINE 20 MG TAB PO SCH (10:00)
[2019-03-09] MEDS: SERTRALINE 100 MG TAB PO SCH (10:00)
[2019-03-09] MEDS: HEPARIN 5,000 UNIT/1 ML VIAL SUB-Q SCH ×2 (10:00→22:17)
[2019-03-09] MEDS: risperiDONE 1 MG TAB PO SCH (10:00)
--- NOTE | 2019-03-09 10:51 | Progress Note ---
Assessment and Plan Assessment: * End stage renal disease (outpatient TTS schedule) * Acute hypoxic respiratory failure on mechanical ventilation * Atrial fibrillation * History of CVA * Anemia secondary to ESRD * Secondary hyperparathyroidism Plan * Continue HD MWF schedule for now * UF as tolerated * AVG in use. Vascular surgery following, notes reviewed; RIJ permcath removal prior to d/c * Empiric abx per ID/primary team * Nutrition per primary team * Dose medications for renal function * Epogen TID Subjective Date of service: 03/09/19 Principal diagnosis: respiratory failure Interval history: received HD this AM without issues per nursing. patient not able to verbalize any issues due to mental status Objective - Exam Narrative Exam: General appearance: chronically ill, intubated, frail EENT: normocephalic Neck: ETT in place Respiratory: coarse mechanical breath sounds bilaterally Cardiology: regular, S1S2, no edema Gastrointestinal: PEG and colostomy noted Integumentary: warm and dry Psychiatric: unable to assess - Vital Signs Vital signs: Vital Signs - 12hr 03/08/19 03/08/19 03/08/19 23:00 23:20 23:55 Temperature 98.1 F Pulse Rate 80 79 Pulse Rate [ From Monitor] Respiratory 12 17 Rate Blood Pressure 130/62 133/65 O2 Sat by Pulse 99 100 Oximetry O2 Sat by Pulse Oximetry [ Anterior Bilateral Throughout] O2 Sat by Pulse Oximetry [ Assessment] 03/09/19 03/09/19 03/09/19 00:00 00:34 01:00 Temperature Pulse Rate 80 80 80 Pulse Rate [ From Monitor] Respiratory 12 12 Rate Blood Pressure 119/74 134/71 132/70 O2 Sat by Pulse 100 100 99 Oximetry O2 Sat by Pulse Oximetry [ Anterior Bilateral Throughout] O2 Sat by Pulse Oximetry [ Assessment] 03/09/19 03/09/19 03/09/19 02:00 03:00 03:38 Temperature 98.0 F Pulse Rate 80 78 78 Pulse Rate [ From Monitor] Respiratory 16 27 H 12 Rate Blood Pressure 125/68 132/70 134/70 O2 Sat by Pulse 99 99 100 Oximetry O2 Sat by Pulse Oximetry [ Anterior Bilateral Throughout] O2 Sat by Pulse Oximetry [ Assessment] 03/09/19 03/09/19 03/09/19 03:49 03:53 04:00 Temperature 98.1 F 98.2 F Pulse Rate 77 78 Pulse Rate [ 78 From Monitor] Respiratory 18 15 Rate Blood Pressure 141/77 O2 Sat by Pulse 100 95 Oximetry O2 Sat by Pulse Oximetry [ Anterior Bilateral Throughout] O2 Sat by Pulse Oximetry [ Assessment] 03/09/19 03/09/19 03/09/19 04:01 04:21 04:23 Temperature 98.5 F Pulse Rate 78 78 78 Pulse Rate [ From Monitor] Respiratory 15 15 12 Rate Blood Pressure 141/67 141/67 142/71 O2 Sat by Pulse 100 99 100 Oximetry O2 Sat by Pulse Oximetry [ Anterior Bilateral Throughout] O2 Sat by Pulse Oximetry [ Assessment] 03/09/19 03/09/19 03/09/19 04:30 04:41 04:51 Temperature Pulse Rate 78 84 78 Pulse Rate [ From Monitor] Respiratory 10 L 22 17 Rate Blood Pressure 142/71 142/71 142/71 O2 Sat by Pulse 99 100 99 Oximetry O2 Sat by Pulse Oximetry [ Anterior Bilateral Throughout] O2 Sat by Pulse Oximetry [ Assessment] 03/09/19 03/09/19 03/09/19 04:53 05:00 05:11 Temperature 97.8 F 98.1 F Pulse Rate 77 79 79 Pulse Rate [ From Monitor] Respiratory 14 15 13 Rate Blood Pressure 136/56 131/60 136/72 O2 Sat by Pulse 100 99 100 Oximetry O2 Sat by Pulse 100 Oximetry [ Anterior Bilateral Throughout] O2 Sat by Pulse Oximetry [ Assessment] 03/09/19 03/09/19 03/09/19 05:15 05:21 05:23 Temperature Pulse Rate 79 78 Pulse Rate [ From Monitor] Respiratory 33 H Rate Blood Pressure 134/60 134/60 O2 Sat by Pulse 99 Oximetry O2 Sat by Pulse Oximetry [ Anterior Bilateral Throughout] O2 Sat by Pulse 78 L Oximetry [ Assessment] 03/09/19 03/09/19 03/09/19 05:30 05:31 05:45 Temperature Pulse Rate 79 104 H 80 Pulse Rate [ From Monitor] Respiratory 11 L Rate Blood Pressure 153/83 153/83 129/70 O2 Sat by Pulse 96 Oximetry O2 Sat by Pulse Oximetry [ Anterior Bilateral Throughout] O2 Sat by Pulse Oximetry [ Assessment] 03/09/19 03/09/19 03/09/19 06:00 06:15 06:20 Temperature 98.6 F Pulse Rate 80 80 80 Pulse Rate [ From Monitor] Respiratory 15 13 Rate Blood Pressure 135/70 134/70 134/73 O2 Sat by Pulse 100 100 Oximetry O2 Sat by Pulse Oximetry [ Anterior Bilateral Throughout] O2 Sat by Pulse Oximetry [ Assessment] 03/09/19 03/09/19 03/09/19 06:31 06:46 07:00 Temperature Pulse Rate 80 80 80 Pulse Rate [ From Monitor] Respiratory Rate Blood Pressure 144/75 132/76 145/82 O2 Sat by Pulse Oximetry O2 Sat by Pulse Oximetry [ Anterior Bilateral Throughout] O2 Sat by Pulse Oximetry [ Assessment] 03/09/19 03/09/19 03/09/19 07:15 07:30 07:45 Temperature Pulse Rate 81 81 81 Pulse Rate [ From Monitor] Respiratory Rate Blood Pressure 137/73 144/73 150/73 O2 Sat by Pulse Oximetry O2 Sat by Pulse Oximetry [ Anterior Bilateral Throughout] O2 Sat by Pulse Oximetry [ Assessment] 03/09/19 03/09/19 03/09/19 08:00 08:15 08:30 Temperature Pulse Rate 80 82 80 Pulse Rate [ From Monitor] Respiratory Rate Blood Pressure 133/74 139/76 150/69 O2 Sat by Pulse Oximetry O2 Sat by Pulse Oximetry [ Anterior Bilateral Throughout] O2 Sat by Pulse Oximetry [ Assessment] 03/09/19 08:42 Temperature Pulse Rate 80 Pulse Rate [ From Monitor] Respiratory Rate Blood Pressure 150/69 O2 Sat by Pulse 94 Oximetry O2 Sat by Pulse Oximetry [ Anterior Bilateral Throughout] O2 Sat by Pulse Oximetry [ Assessment] - Lab 03/08/19 16:00 03/08/19 16:00 Most recent lab results Calcium 10.0 mg/dL (8.4-10.2) 03/08/19 16:00 Phosphorus 2.30 mg/dL (2.5-4.5) L 03/02/19 05:15 Magnesium 2.20 mg/dL (1.7-2.3) 03/02/19 05:15 Medications & Allergies - Medications Allergies/Adverse Reactions: Allergies haloperidol [From Haldol] Adverse Reaction (Verified 03/13/18 12:10) Unknown haloperidol lactate [From Haldol] Adverse Reaction (Verified 03/13/18 12:10) Unknown Home Medications: Home Medications Medication Instructions Recorded Confirmed Last Taken Type risperiDONE [RisperDAL] 1 mg PO QAM 03/13/18 02/21/19 Unknown History Sertraline [Zoloft] 100 mg PO QDAY 08/26/18 02/21/19 Unknown History Polyethylene Glycol 3350 [Miralax 17 gm PO QDAY #30 packet 11/05/18 02/21/19 Unknown Rx 3350] Aspirin EC [Halfprin EC] 81 mg PO DAILY #30 11/19/18 02/21/19 Unknown Rx Docusate Sodium [Colace CAP] 100 mg PO BID #60 11/19/18 02/21/19 Unknown Rx Folic Acid [Folvite] 1 mg PO DAILY #30 tab 11/19/18 02/21/19 Unknown Rx Famotidine [Pepcid] 20 mg PO DAILY tablet 12/08/18 02/21/19 Unknown Rx Gabapentin [Neurontin] 100 mg PO QHS capsule 12/08/18 02/21/19 Unknown Rx Metoprolol [Lopressor TAB] 50 mg PO BID 30 Days tablet 12/08/18 02/21/19 Unkn own Rx Sevelamer Carbonate [Renvela] 800 mg PO TIDWM tablet 12/08/18 02/21/19 Unknown Rx hydrALAZINE [Apresoline TAB] 100 mg PO Q8HR #120 tablet 12/08/18 02/21/19 Unknown Rx Acetaminophen [Acetaminophen TAB] 650 mg PO Q12H PRN 12/15/18 02/21/19 Unknown History Glucagon,Human Recombinant 1 mg IJ Q15MIN PRN 12/15/18 02/21/19 Unknown History [Glucagon Emergency Kit] Insulin Aspart [NovoLOG 100 See Protocol SQ QWEEK 12/15/18 02/21/19 Unknown History UNITS/ML VIAL] Active Medications: Generic Name Dose Route Start Last Admin Trade Name Freq PRN Reason Stop Dose Admin Acetaminophen 650 mg 02/21/19 22:19 03/05/19 08:16 Tylenol PO 650 mg Q4H PRN Administration Pain MILD(1-3)/Fever >100.5/HILL Albuterol/Ipratropium 1 ampul 02/24/19 20:00 03/08/19 20:44 Duoneb *Not For Prn Use* IH 1 ampul TIDRT SANCHEZ Administration Lipase/Protease/Amylase 1 each 03/05/19 14:04 Pancrejewel Barrientos 10,500 Unit FEEDTUBE PRN PRN For Clogged Feeding Tube Dextrose 50 ml 02/21/19 22:22 03/03/19 17:37 D50w (25gm) Syringe IV 50 ml PRN PRN Administration Hypoglycemia Famotidine 20 mg 02/23/19 10:00 03/09/19 10:00 Pepcid PO 20 mg DAILY SANCHEZ Administration Heparin Sodium (Porcine) 5,000 unit 03/04/19 22:00 03/09/19 10:00 Heparin SUB-Q 5,000 unit Q12HR SANCHEZ Administration Hydrophilic Ointment 1 applic 02/21/19 18:24 03/05/19 08:16 Vaseline Lip Therapy TP 1 applic Q2HR PRN Administration Dry Lips Sodium Chloride 100 mls @ 999 mls/hr 02/26/19 09:00 Nacl 0.9% IV UMA PRN Hypotension Insulin Human Regular 0 units 02/26/19 12:00 03/09/19 06:36 Humulin R SUB-Q Not Given Q6HR SANCHEZ Protocol Metoprolol Tartrate 2.5 mg 02/28/19 12:06 03/01/19 10:32 Lopressor IV 2.5 mg Q4HR PRN Administration Tachycardia Metoprolol Tartrate 25 mg 03/02/19 14:00 03/09/19 08:00 Lopressor PO 25 mg TID SANCHEZ Administration Multi-Ingred Cream/Lotion/Oil/Oint 1 applic 02/21/19 18:24 Artificial Tears Ophth Oint OU Q4HR PRN Dry Eye(s) Ondansetron HCl 4 mg 02/21/19 22:19 Zofran IV Q8H PRN Nausea And Vomiting Risperidone 1 mg 02/25/19 13:00 03/09/19 10:00 Risperdal PO 1 mg DAILY SANCHEZ Administration Sertraline HCl 100 mg 02/25/19 13:00 03/09/19 10:00 Zoloft PO 100 mg DAILY SANCHEZ Administration Simple Syrup 15 ml 03/05/19 14:04 Simple Syrup FEEDTUBE PRN PRN Hypoglycemia Simple Syrup 30 ml 03/05/19 14:04 Simple Syrup FEEDTUBE PRN PRN Hypoglycemia Sodium Bicarbonate 325 mg 03/05/19 14:04 Sodium Bicarbonate FEEDTUBE PRN PRN For Clogged Feeding Tube Sodium Chloride 10 ml 02/22/19 10:00 03/09/19 10:00 Sodium Chloride Flush Syringe 10 Ml IV 10 ml BID SANCHEZ Administration Sodium Chloride 10 ml 02/21/19 22:19 02/24/19 22:00 Sodium Chloride Flush Syringe 10 Ml IV 10 ml PRN PRN Administration LINE FLUSH Tramadol HCl 50 mg 03/05/19 10:08 03/08/19 16:54 Ultram PO 50 mg Q6H PRN Administration Pain, Moderate (4-6)
[2019-03-09 11:21] LABS: Hematocrit 24.2 % (35.5-45.6); Hemoglobin 7.7 gm/dl (11.8-15.2); Mean Corpuscular HGB Conc 32 % (32-34); Mean Corpuscular Volume 85 fl (84-94); Platelet Count 319 K/mm3 (140-440); Red Blood Count 2.85 M/mm3 (3.65-5.03); Red Cell Distribution Width 18.7 % (13.2-15.2)
--- NOTE | 2019-03-09 12:36 | Progress Note ---
Assessment and Plan Assessment and plan: Patient is a 63-year-old -[place] man from [facility] with a plethora of co-morbidities including blindness, CVA, CHF, PPM/ICD, loop recorder since 2012 that is MRI compatible, IDDM type 2, sepsis left foot ulcer, afib, ESRD with complications on HD TTS, hypertension, AOCD and GERD who presented to the ED with hypotensive after intubation in the emergency room. Still intubated, diagnosed with fluid overload, pleural effusion. Patient has had recurrent admission in the hospital for similar reason and was recently discharged from the hospital following treatment of Severe Sepsis due to Necrotizing Unstagable sacral decubitus ulcer with ostemomylitis, expected to complete abx on discharge till 02/16/19. Trach and peg done and LTAC transfer with anticipated longer weaning process an d wound care management. HR control improved with change in BB. Acute respiratory failure on mechanical ventilator >96 hrs - Currently on trach placed on 03/03 off vent since 03/09, cont oxygen supplement, improving acute on chronc systolic CHF/ Acute pulmonary edema, improved with UF Dilated CMP, EF 35-40% Continue diuresis Acute metabolic encephalopathy, resolved, has baseline Dementia ESRD on hemodialysis nephrology following Bilateral pleural effusions improved with HD Permanent atrial fibrillation and flutter and hypercoaguable state Not on anticoagulation because of anemia thrombocytopenia rate control meds optimizeds Diabetes mellitus type 2 SSI NSTEMI type 2 Cardiology following Schizophrenia Legally blind supportive care hypertension Monitor BP Hypokalemia replaced Pulmonary hypertension Dysphagia s/p PEG tube Sacral decub ulcer Wound Nurse consulted Severe malnutrition /hypoalbuminemia with FTT: 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, bread panner following PEG placed on 01/02/19 decubitus ulcer s/ post colostomy wound care consult History of sacral osteomyelitis and LE ulcers Completed Antibiotics Place on contact isolation for ESBL Klebsiella pneumonia on wound culture 01/02/19 Schizophrenia h/o Peripheral neuropathy: Continue gabapentin Pulm HTN Anemia of chronic disease -s/p total of 8 units PRBC, follow cbc- no occult GI bleed noted. -Pt is s/p x1 DDVAP RUL atelectasis, probably mucous plugging DVT prophylaxis Lovenox Full code status poor prognosis DIspo; to ltach tomorrow The high probability of a clinically significant, sudden or life threatening deterioration of the [pulmonary, neuro, renal] system(s) required my full and direct attention, intervention and personal management. The aggregate critical care time was [35] minutes. This time is in addition to time spent performing reported procedures but includes the following: [x] Data Review and interpretation [x] Patient assessment and monitoring of vital signs [] Documentation [x] Medication orders and management History Interval history: no fevers remains demented no vomiting, no agitation, no seizures Hospitalist Physical - Physical exam Narrative exam: Constitutional: no acute distress, opens eyes, says hello Eyes: non-icteric ENT: oropharynx moist Neck: supple Effort: normal Ascultation: Bilateral: other (coarse BS bilaterally) Percussion: Bilateral: not dull Cardiovascular: regular rate and rhythm (no mrg) Gastrointestinal: normoactive bowel sounds, soft, non-tender, non-distended, other (ostomy in place, brown stool) Extremities: no cyanosis, no edema, pink and warm Neurologic: other (mild weakness LUE, o/w nonfocal), demented Psychiatric: other (unable to assess) SKIN; Left 5th finger, stage 4 pressure ulcer,Left heel, deep tissue injury, Sacrum, stage 4 pressure ulcer POA - Constitutional Vitals: Temp Pulse Resp BP Pulse Ox 98.6 F 80 13 132/73 100 03/09/19 06:20 03/09/19 11:08 03/09/19 06:20 03/09/19 11:08 03/09/19 11:08 General appearance: Present: no acute distress Results - Labs CBC & Chem 7: 03/31/19 10:26 03/31/19 10:26 Labs: Laboratory Last Values WBC 5.7 K/mm3 (4.5-11.0) 03/09/19 10:48 RBC 2.85 M/mm3 (3.65-5.03) L 03/09/19 10:48 Hgb 7.7 gm/dl (11.8-15.2) L 03/09/19 10:48 Hct 24.2 % (35.5-45.6) L 03/09/19 10:48 MCV 85 fl (84-94) 03/09/19 10:48 MCH 27 pg (28-32) L 03/09/19 10:48 MCHC 32 % (32-34) 03/09/19 10:48 RDW 18.7 % (13.2-15.2) H 03/09/19 10:48 Plt Count 319 K/mm3 (140-440) 03/09/19 10:48 Lymph % (Auto) 13.6 % (13.4-35.0) 03/08/19 16:00 [place] % (Auto) 5.8 % (0.0-7.3) 03/08/19 16:00 Eos % (Auto) 8.6 % (0.0-4.3) H 03/08/19 16:00 Baso % (Auto) 1.3 % (0.0-1.8) 03/08/19 16:00 Lymph # 0.8 K/mm3 (1.2-5.4) L 03/08/19 16:00 [place] # 0.4 K/mm3 (0.0-0.8) 03/08/19 16:00 Eos # 0.5 K/mm3 (0.0-0.4) H 03/08/19 16:00 Baso # 0.1 K/mm3 (0.0-0.1) 03/08/19 16:00 Seg Neutrophils % 70.7 % (40.0-70.0) H 03/08/19 16:00 Seg Neutrophils # 4.4 K/mm3 (1.8-7.7) 03/08/19 16:00 PT 16.3 Sec. (12.2-14.9) H 03/01/19 09:39 INR 1.35 (0.87-1.13) H 03/01/19 09:39 APTT 33.7 Sec. (24.2-36.6) 02/21/19 18:30 2987.82 ng/mlDDU (0-234) H 02/22/19 05:54 POC ABG pH 7.483 (7.35-7.45) H 02/27/19 04:35 POC ABG pCO2 37.5 (35-45) 02/27/19 04:35 POC ABG pO2 61 (80-105) L 02/27/19 04:35 POC ABG HCO3 28.1 (22-26 mml/L) 02/27/19 04:35 POC ABG Total CO2 29 (23-27mmol/L) 02/27/19 04:35 POC ABG O2 Sat 93 02/27/19 04:35 POC ABG Base Excess 5 ((-2) - (+3)mmol/L) 02/27/19 04:35 30 % 02/27/19 04:35 Sodium 138 mmol/L (137-145) 03/08/19 16:00 Potassium 5.4 mmol/L (3.6-5.0) H D 03/08/19 16:00 Chloride 98.2 mmol/L (98-107) 03/08/19 16:00 Carbon Dioxide 29 mmol/L (22-30) 03/08/19 16:00 16 mmol/L 03/08/19 16:00 BUN 47 mg/dL (9-20) H 03/08/19 16:00 2.6 mg/dL (0.8-1.5) H 03/08/19 16:00 Estimated GFR 30 ml/min 03/08/19 16:00 18 % 03/08/19 16:00 Glucose 88 mg/dL (75-100) 03/08/19 16:00 POC Glucose 103 (70-105) 03/09/19 05:19 Lactic Acid 1.00 mmol/L (0.7-2.0) 02/21/19 20:58 Calcium 10.0 mg/dL (8.4-10.2) 03/08/19 16:00 Phosphorus 2.30 mg/dL (2.5-4.5) L 03/02/19 05:15 Magnesium 2.20 mg/dL (1.7-2.3) 03/02/19 05:15 0.20 mg/dL (0.1-1.2) 03/08/19 16:00 AST 10 units/L (5-40) 03/08/19 16:00 ALT < 5 units/L (7-56) L 03/08/19 16:00 123 units/L (35-129) 03/08/19 16:00 28.0 umol/L (25-60) 02/21/19 20:04 64 units/L (55-170) 02/22/19 03:42 CK-MB (CK-2) 3.7 ng/mL (0.0-4.0) 02/22/19 03:42 CK-MB (CK-2) Rel Index 5.7 (0-4) H 02/22/19 03:42 0.193 ng/mL (0.00-0.029) H* 02/22/19 03:42 6.4 g/dL (6.3-8.2) 03/08/19 16:00 2.2 g/dL (3.9-5) L 03/08/19 16:00 0.5 % 03/08/19 16:00 Triglycerides 51 mg/dL (2-149) 02/21/19 18:30 Cholesterol 82 mg/dL (50-199) 02/21/19 18:30 36 mg/dL (50-130) L 02/21/19 18:30 40 mg/dL (40-59) 02/21/19 18:30 2.05 % 02/21/19 18:30 TSH 2.760 mlU/mL (0.270-4.200) 02/21/19 20:04 PTH Intact 267.6 pg/mL (15-65) H 03/02/19 05:15 Salicylates < 0.3 mg/dL (2.8-20.0) L 02/21/19 20:04 Acetaminophen < 5.0 ug/mL (10.0-30.0) L 02/21/19 20:04 Hepatitis A IgM Ab Non-reactive (NonReactive) 02/23/19 11:20 Hep Bs Antigen Non-reactive (Negative) 02/23/19 11:20 Hep B Core IgM Ab Non-reactive (NonReactive) 02/23/19 11:20 Non-reactive (NonReactive) 02/23/19 11:20 Blood Type O POSITIVE 03/08/19 Unknown Antibody Screen Negative 03/08/19 Unknown Crossmatch See Detail 03/08/19 Unknown Active Medications - Current Medications Current Medications: Generic Name Dose Route Start Last Admin Trade Name Freq PRN Reason Stop Dose Admin Acetaminophen 650 mg 02/21/19 22:19 03/05/19 08:16 Tylenol PO 650 mg Q4H PRN Administration Pain MILD(1-3)/Fever >100.5/HILL Albuterol/Ipratropium 1 ampul 02/24/19 20:00 03/08/19 20:44 Duoneb *Not For Prn Use* IH 1 ampul TIDRT SANCHEZ Administration Lipase/Protease/Amylase 1 each 03/05/19 14:04 Pancrejewel Barrientos 10,500 Unit FEEDTUBE PRN PRN For Clogged Feeding Tube Dextrose 50 ml 02/21/19 22:22 03/03/19 17:37 D50w (25gm) Syringe IV 50 ml PRN PRN Administration Hypoglycemia Famotidine 20 mg 02/23/19 10:00 03/09/19 10:00 Pepcid PO 20 mg DAILY SANCHEZ Administration Heparin Sodium (Porcine) 5,000 unit 03/04/19 22:00 03/09/19 10:00 Heparin SUB-Q 5,000 unit Q12HR SANCHEZ Administration Hydrophilic Ointment 1 applic 02/21/19 18:24 03/05/19 08:16 Vaseline Lip Therapy TP 1 applic Q2HR PRN Administration Dry Lips Sodium Chloride 100 mls @ 999 mls/hr 02/26/19 09:00 Nacl 0.9% IV UMA PRN Hypotension Insulin Human Regular 0 units 02/26/19 12:00 03/09/19 06:36 Humulin R SUB-Q Not Given Q6HR [facility] Protocol Metoprolol Tartrate 2.5 mg 02/28/19 12:06 03/01/19 10:32 Lopressor IV 2.5 mg Q4HR PRN Administration Tachycardia Metoprolol Tartrate 25 mg 03/02/19 14:00 03/09/19 08:00 Lopressor PO 25 mg TID SANCHEZ Administration Multi-Ingred Cream/Lotion/Oil/Oint 1 applic 02/21/19 18:24 Artificial Tears Ophth Oint OU Q4HR PRN Dry Eye(s) Ondansetron HCl 4 mg 02/21/19 22:19 Zofran IV Q8H PRN Nausea And Vomiting Risperidone 1 mg 02/25/19 13:00 03/09/19 10:00 Risperdal PO 1 mg DAILY SANCHEZ Administration Sertraline HCl 100 mg 02/25/19 13:00 03/09/19 10:00 Zoloft PO 100 mg DAILY SANCHEZ Administration Simple Syrup 15 ml 03/05/19 14:04 Simple Syrup FEEDTUBE PRN PRN Hypoglycemia Simple Syrup 30 ml 03/05/19 14:04 Simple Syrup FEEDTUBE PRN PRN Hypoglycemia Sodium Bicarbonate 325 mg 03/05/19 14:04 Sodium Bicarbonate FEEDTUBE PRN PRN For Clogged Feeding Tube Sodium Chloride 10 ml 02/22/19 10:00 03/09/19 10:00 Sodium Chloride Flush Syringe 10 Ml IV 10 ml BID SANCHEZ Administration Sodium Chloride 10 ml 02/21/19 22:19 02/24/19 22:00 Sodium Chloride Flush Syringe 10 Ml IV 10 ml PRN PRN Administration LINE FLUSH Tramadol HCl 50 mg 03/05/19 10:08 03/08/19 16:54 Ultram PO 50 mg Q6H PRN Administration Pain, Moderate (4-6) Nutrition/Malnutrition Assess - Dietary Evaluation Nutrition/Malnutrition Findings: Nutrition Notes Start: 02/22/19 12:51 Freq: Status: Active Protocol: Document 03/05/19 13:59 RM (Rec: 03/05/19 14:02 RM [id number]) Nutrition Notes Initial or Follow up Reassessment Current Diagnosis Diabetes,Hypertension Other Pertinent Diagnosis Sacral PU, ESRD on HD (T/Thurs /Sat), Schizophrenia,Blind in L eye,S/P trach Current Diet NPO after midnight Labs/Tests Reviewed Pertinent Medications Reviewed Height 5 ft 10 in Weight 88.7 kg [place] Body Weight (kg) 75.45 BMI 28.0 Subjective/Other Information Trach placed yesterday. Observed Vital 1.2 infusing at goal rate. Per nurse pt is tolerating TF. Percent of energy/protein needs met: 100%/100% Burn Absent Trauma Absent #2 Nutrition Diagnosis Increased nutrient needs ( specify in comment below) Diagnosis Progress(for reassessment Continues documentation) #1 Nutrition Diagnosis Inadequate oral intake Diagnosis Progress(for reassessment Continues documentation) Is patient on ventilator? Yes Is Patient Ambulatory and/or Out of Bed No REE-([place]-confined to bed) 2023.976 Kcal/Kg value to use for calculation 18 Approximate Energy Requirements Using 1597 kcal/Kg Calculation Used for Recommendations Kcal/kg Additional Notes Protein Needs: 106-177g (1.2- 2g/kg) Fluid Needs: 1 ml/kcal Nutrition Intervention Nutrition Support: Vital 1.2 at 70 ml/hr Water flush of 100 mls q 4 hrs Kcal 2,016 Protein (gm) 126 Fluid (mL) 1,362 Add Supplement/Snack (indicate name/kcal Abhilash BID /protein ) Provides kCal: 190 Provides Protein (gm) 5 Goal #1 TF tolerance Goal #2 Continue to meet at least 80% of calorie and protein needs via TF Anticipated Discharge Needs: Unable to determine at this time Follow-Up By: 03/13/19 Additional Comments Follow for TF tolerance
--- NOTE | 2019-03-09 12:39 | Progress Note ---
Assessment and Plan mp: 1. Acute encephalopathy, probably metabolic or toxic 2. A/C systolic CHF 3. Dilated CMP 4. Pulm HTN 5. ESRD 6. RUL atelectasis, probably mucous plugging Rec: 1. Chest PT with vest, Duonebs; f/u CXR in AM and add back Mucomyst nebs/Mucinex if continued atelectasis 2. Daily PSV/SBT 3. Avoid sedatives; resumed psych meds 4. DVT and GI PPx 5. TFs per PEG 6. Colostomy care 7. HD per renal 8. Await LTAC; poor long-term prognosis Critical care time 31 minute Subjective Date of service: 03/09/19 Principal diagnosis: respiratory failure Interval history: Remained unresponsive with trach on mechanical ventilator. No significant change. Kayexalate for hyperkalemia Objective Vital Signs - 12hr 03/09/19 03/09/19 03/09/19 01:00 02:00 03:00 Temperature Pulse Rate 80 80 78 Pulse Rate [ From Monitor] Respiratory 12 16 27 H Rate Blood Pressure 132/70 125/68 132/70 O2 Sat by Pulse 99 99 99 Oximetry O2 Sat by Pulse Oximetry [ Anterior Bilateral Throughout] O2 Sat by Pulse Oximetry [ Assessment] 03/09/19 03/09/19 03/09/19 03:38 03:49 03:53 Temperature 98.0 F 98.1 F 98.2 F Pulse Rate 78 77 Pulse Rate [ From Monitor] Respiratory 12 18 Rate Blood Pressure 134/70 141/77 O2 Sat by Pulse 100 100 Oximetry O2 Sat by Pulse Oximetry [ Anterior Bilateral Throughout] O2 Sat by Pulse Oximetry [ Assessment] 03/09/19 03/09/19 03/09/19 04:00 04:01 04:21 Temperature Pulse Rate 78 78 78 Pulse Rate [ 78 From Monitor] Respiratory 15 15 15 Rate Blood Pressure 141/67 141/67 O2 Sat by Pulse 95 100 99 Oximetry O2 Sat by Pulse Oximetry [ Anterior Bilateral Throughout] O2 Sat by Pulse Oximetry [ Assessment] 03/09/19 03/09/19 03/09/19 04:23 04:30 04:41 Temperature 98.5 F Pulse Rate 78 78 84 Pulse Rate [ From Monitor] Respiratory 12 10 L 22 Rate Blood Pressure 142/71 142/71 142/71 O2 Sat by Pulse 100 99 100 Oximetry O2 Sat by Pulse Oximetry [ Anterior Bilateral Throughout] O2 Sat by Pulse Oximetry [ Assessment] 03/09/19 03/09/19 03/09/19 04:51 04:53 05:00 Temperature 97.8 F 98.1 F Pulse Rate 78 77 79 Pulse Rate [ From Monitor] Respiratory 17 14 15 Rate Blood Pressure 142/71 136/56 131/60 O2 Sat by Pulse 99 100 99 Oximetry O2 Sat by Pulse 100 Oximetry [ Anterior Bilateral Throughout] O2 Sat by Pulse Oximetry [ Assessment] 03/09/19 03/09/19 03/09/19 05:11 05:15 05:21 Temperature Pulse Rate 79 79 78 Pulse Rate [ From Monitor] Respiratory 13 33 H Rate Blood Pressure 136/72 134/60 134/60 O2 Sat by Pulse 100 99 Oximetry O2 Sat by Pulse Oximetry [ Anterior Bilateral Throughout] O2 Sat by Pulse Oximetry [ Assessment] 03/09/19 03/09/19 03/09/19 05:23 05:30 05:31 Temperature Pulse Rate 79 104 H Pulse Rate [ From Monitor] Respiratory 11 L Rate Blood Pressure 153/83 153/83 O2 Sat by Pulse 96 Oximetry O2 Sat by Pulse Oximetry [ Anterior Bilateral Throughout] O2 Sat by Pulse 78 L Oximetry [ Assessment] 03/09/19 03/09/19 03/09/19 05:45 06:00 06:15 Temperature Pulse Rate 80 80 80 Pulse Rate [ From Monitor] Respiratory 15 Rate Blood Pressure 129/70 135/70 134/70 O2 Sat by Pulse 100 Oximetry O2 Sat by Pulse Oximetry [ Anterior Bilateral Throughout] O2 Sat by Pulse Oximetry [ Assessment] 03/09/19 03/09/19 03/09/19 06:20 06:31 06:46 Temperature 98.6 F Pulse Rate 80 80 80 Pulse Rate [ From Monitor] Respiratory 13 Rate Blood Pressure 134/73 144/75 132/76 O2 Sat by Pulse 100 Oximetry O2 Sat by Pulse Oximetry [ Anterior Bilateral Throughout] O2 Sat by Pulse Oximetry [ Assessment] 03/09/19 03/09/19 03/09/19 07:00 07:15 07:30 Temperature Pulse Rate 80 81 81 Pulse Rate [ From Monitor] Respiratory Rate Blood Pressure 145/82 137/73 144/73 O2 Sat by Pulse Oximetry O2 Sat by Pulse Oximetry [ Anterior Bilateral Throughout] O2 Sat by Pulse Oximetry [ Assessment] 03/09/19 03/09/19 03/09/19 07:45 08:00 08:15 Temperature Pulse Rate 81 80 82 Pulse Rate [ From Monitor] Respiratory Rate Blood Pressure 150/73 133/74 139/76 O2 Sat by Pulse Oximetry O2 Sat by Pulse Oximetry [ Anterior Bilateral Throughout] O2 Sat by Pulse Oximetry [ Assessment] 03/09/19 03/09/19 03/09/19 08:30 08:42 11:08 Temperature Pulse Rate 80 80 80 Pulse Rate [ From Monitor] Respiratory Rate Blood Pressure 150/69 150/69 132/73 O2 Sat by Pulse 94 100 Oximetry O2 Sat by Pulse Oximetry [ Anterior Bilateral Throughout] O2 Sat by Pulse Oximetry [ Assessment] Constitutional: no acute distress, other (critically ill on vent sp trach) Eyes: non-icteric Effort: normal Ascultation: Bilateral: diminished breath sounds, other (coarse BS bilaterally) Percussion: Bilateral: not dull Cardiovascular: regular rate and rhythm (no mrg) Gastrointestinal: normoactive bowel sounds, soft, non-tender, non-distended Extremities: no edema, pink and warm Neurologic: other (mild weakness LUE, o/w nonfocal) Psychiatric: mood appropriate, affect normal CBC and BMP: 03/09/19 10:48 03/08/19 16:00 ABG, PT/INR, D-dimer: ABG POC ABG pH 7.483 (7.35-7.45) H 02/27/19 04:35 POC ABG pCO2 37.5 (35-45) 02/27/19 04:35 POC ABG pO2 61 (80-105) L 02/27/19 04:35 POC ABG HCO3 28.1 (22-26 mml/L) 02/27/19 04:35 POC ABG Total CO2 29 (23-27mmol/L) 02/27/19 04:35 POC ABG O2 Sat 93 02/27/19 04:35 PT/INR, D-dimer PT 16.3 Sec. (12.2-14.9) H 03/01/19 09:39 INR 1.35 (0.87-1.13) H 03/01/19 09:39 2987.82 ng/mlDDU (0-234) H 02/22/19 05:54 Abnormal lab findings: Abnormal Labs 02/21/19 02/21/19 02/21/19 18:30 18:30 18:30 RBC 3.26 L Hgb 8.8 L Hct 29.0 L MCH 27 L MCHC 30 L RDW 19.1 H Lymph % (Auto) 6.1 L [place] % (Auto) Eos % (Auto) Lymph # 0.4 L Eos # Seg Neutrophils % 86.2 H PT INR D-Dimer POC ABG pH POC ABG pCO2 POC ABG pO2 Sodium 133 L Potassium 3.3 L Chloride 93.1 L Carbon Dioxide 33 H BUN Creatinine Glucose 161 H POC Glucose Phosphorus ALT Alkaline Phosphatase 136 H Total Creatine Kinase 37 L CK-MB (CK-2) Rel Index Troponin T 0.192 H* Albumin 2.4 L LDL Cholesterol Direct 36 L PTH Intact Salicylates Acetaminophen Crossmatch 02/21/19 02/21/19 02/21/19 18:42 20:04 20:04 RBC Hgb Hct MCH MCHC RDW Lymph % (Auto) [place] % (Auto) Eos % (Auto) Lymph # Eos # Seg Neutrophils % PT INR D-Dimer POC ABG pH POC ABG pCO2 56.7 H POC ABG pO2 291 H Sodium Potassium Chloride Carbon Dioxide BUN Creatinine Glucose POC Glucose Phosphorus ALT Alkaline Phosphatase Total Creatine Kinase CK-MB (CK-2) Rel Index Troponin T Albumin LDL Cholesterol Direct PTH Intact Salicylates < 0.3 L Acetaminophen < 5.0 L Crossmatch 02/21/19 02/22/19 02/22/19 22:35 03:42 03:42 RBC 3.20 L Hgb 8.8 L Hct 27.6 L MCH MCHC RDW 18.9 H Lymph % (Auto) 7.4 L [place] % (Auto) Eos % (Auto) Lymph # 0.7 L Eos # Seg Neutrophils % 84.7 H PT INR D-Dimer POC ABG pH POC ABG pCO2 POC ABG pO2 Sodium 134 L Potassium 2.6 L* D Chloride Carbon Dioxide BUN Creatinine Glucose POC Glucose Phosphorus ALT Alkaline Phosphatase Total Creatine Kinase CK-MB (CK-2) Rel Index 5.2 H Troponin T 0.202 H* Albumin LDL Cholesterol Direct PTH Intact Salicylates Acetaminophen Crossmatch 02/22/19 02/22/19 02/22/19 03:42 05:54 09:04 RBC Hgb Hct MCH MCHC RDW Lymph % (Auto) [place] % (Auto) Eos % (Auto) Lymph # Eos # Seg Neutrophils % PT INR D-Dimer 2987.82 H POC ABG pH 7.451 H POC ABG pCO2 POC ABG pO2 Sodium Potassium Chloride Carbon Dioxide BUN Creatinine Glucose POC Glucose Phosphorus ALT Alkaline Phosphatase Total Creatine Kinase CK-MB (CK-2) Rel Index 5.7 H Troponin T 0.193 H* Albumin LDL Cholesterol Direct PTH Intact Salicylates Acetaminophen Crossmatch 02/22/19 02/22/19 02/23/19 10:36 23:56 00:52 RBC Hgb Hct MCH MCHC RDW Lymph % (Auto) [place] % (Auto) Eos % (Auto) Lymph # Eos # Seg Neutrophils % PT INR D-Dimer POC ABG pH POC ABG pCO2 POC ABG pO2 Sodium Potassium 3.1 L Chloride Carbon Dioxide BUN Creatinine Glucose POC Glucose 58 L 111 H Phosphorus ALT Alkaline Phosphatase Total Creatine Kinase CK-MB (CK-2) Rel Index Troponin T Albumin LDL Cholesterol Direct PTH Intact Salicylates Acetaminophen Crossmatch 02/23/19 02/23/19 02/23/19 05:00 06:35 14:26 RBC Hgb Hct MCH MCHC RDW Lymph % (Auto) [place] % (Auto) Eos % (Auto) Lymph # Eos # Seg Neutrophils % PT INR D-Dimer POC ABG pH POC ABG pCO2 POC ABG pO2 Sodium 135 L Potassium 3.1 L Chloride Carbon Dioxide BUN 21 H Creatinine 2.0 H Glucose 57 L POC Glucose 64 L 62 L Phosphorus ALT Alkaline Phosphatase Total Creatine Kinase CK-MB (CK-2) Rel Index Troponin T Albumin LDL Cholesterol Direct PTH Intact Salicylates Acetaminophen Crossmatch 02/24/19 02/24/19 02/24/19 02:11 04:12 04:55 RBC 2.84 L Hgb 7.8 L Hct 24.5 L MCH MCHC RDW 19.5 H Lymph % (Auto) [place] % (Auto) Eos % (Auto) Lymph # Eos # Seg Neutrophils % PT INR D-Dimer POC ABG pH 7.511 H POC ABG pCO2 33.9 L POC ABG pO2 62 L Sodium Potassium Chloride Carbon Dioxide BUN Creatinine Glucose POC Glucose 69 L Phosphorus ALT Alkaline Phosphatase Total Creatine Kinase CK-MB (CK-2) Rel Index Troponin T Albumin LDL Cholesterol Direct PTH Intact Salicylates Acetaminophen Crossmatch 02/24/19 02/24/19 02/25/19 04:55 05:41 04:45 RBC Hgb Hct MCH MCHC RDW Lymph % (Auto) [place] % (Auto) Eos % (Auto) Lymph # Eos # Seg Neutrophils % PT INR D-Dimer POC ABG pH 7.466 H POC ABG pCO2 POC ABG pO2 75 L Sodium Potassium Chloride Carbon Dioxide BUN Creatinine 1.8 H Glucose 73 L POC Glucose 127 H Phosphorus ALT Alkaline Phosphatase Total Creatine Kinase CK-MB (CK-2) Rel Index Troponin T Albumin LDL Cholesterol Direct PTH Intact Salicylates Acetaminophen Crossmatch 02/25/19 02/25/19 02/26/19 16:34 21:33 03:45 RBC 2.96 L Hgb 8.0 L Hct 25.8 L MCH 27 L MCHC 31 L RDW 20.0 H Lymph % (Auto) [place] % (Auto) Eos % (Auto) Lymph # Eos # Seg Neutrophils % PT INR D-Dimer POC ABG pH POC ABG pCO2 POC ABG pO2 Sodium Potassium Chloride Carbon Dioxide BUN Creatinine Glucose POC Glucose 141 H 106 H Phosphorus ALT Alkaline Phosphatase Total Creatine Kinase CK-MB (CK-2) Rel Index Troponin T Albumin LDL Cholesterol Direct PTH Intact Salicylates Acetaminophen Crossmatch 02/26/19 02/26/19 02/26/19 03:45 04:13 07:53 RBC Hgb Hct MCH MCHC RDW Lymph % (Auto) [place] % (Auto) Eos % (Auto) Lymph # Eos # Seg Neutrophils % PT INR D-Dimer POC ABG pH 7.470 H POC ABG pCO2 POC ABG pO2 Sodium Potassium Chloride Carbon Dioxide BUN Creatinine 1.8 H Glucose POC Glucose 110 H Phosphorus ALT Alkaline Phosphatase Total Creatine Kinase CK-MB (CK-2) Rel Index Troponin T Albumin LDL Cholesterol Direct PTH Intact Salicylates Acetaminophen Crossmatch 02/26/19 02/26/19 02/27/19 11:56 17:43 00:12 RBC Hgb Hct MCH MCHC RDW Lymph % (Auto) [place] % (Auto) Eos % (Auto) Lymph # Eos # Seg Neutrophils % PT INR D-Dimer POC ABG pH POC ABG pCO2 POC ABG pO2 Sodium Potassium Chloride Carbon Dioxide BUN Creatinine Glucose POC Glucose 112 H 127 H 127 H Phosphorus ALT Alkaline Phosphatase Total Creatine Kinase CK-MB (CK-2) Rel Index Troponin T Albumin LDL Cholesterol Direct PTH Intact Salicylates Acetaminophen Crossmatch 02/27/19 02/27/19 02/27/19 04:35 13:15 18:02 RBC Hgb Hct MCH MCHC RDW Lymph % (Auto) [place] % (Auto) Eos % (Auto) Lymph # Eos # Seg Neutrophils % PT INR D-Dimer POC ABG pH 7.483 H POC ABG pCO2 POC ABG pO2 61 L Sodium Potassium Chloride Carbon Dioxide BUN Creatinine Glucose POC Glucose 143 H 106 H Phosphorus ALT Alkaline Phosphatase Total Creatine Kinase CK-MB (CK-2) Rel Index Troponin T Albumin LDL Cholesterol Direct PTH Intact Salicylates Acetaminophen Crossmatch 02/28/19 02/28/19 02/28/19 05:50 11:59 17:52 RBC Hgb Hct MCH MCHC RDW Lymph % (Auto) [place] % (Auto) Eos % (Auto) Lymph # Eos # Seg Neutrophils % PT INR D-Dimer POC ABG pH POC ABG pCO2 POC ABG pO2 Sodium Potassium Chloride Carbon Dioxide BUN Creatinine Glucose POC Glucose 134 H 128 H 142 H Phosphorus ALT Alkaline Phosphatase Total Creatine Kinase CK-MB (CK-2) Rel Index Troponin T Albumin LDL Cholesterol Direct PTH Intact Salicylates Acetaminophen Crossmatch 02/28/19 03/01/19 03/01/19 23:13 05:40 09:39 RBC Hgb Hct MCH MCHC RDW Lymph % (Auto) [place] % (Auto) Eos % (Auto) Lymph # Eos # Seg Neutrophils % PT 16.3 H INR 1.35 H D-Dimer POC ABG pH POC ABG pCO2 POC ABG pO2 Sodium Potassium Chloride Carbon Dioxide BUN Creatinine Glucose POC Glucose 112 H 111 H Phosphorus ALT Alkaline Phosphatase Total Creatine Kinase CK-MB (CK-2) Rel Index Troponin T Albumin LDL Cholesterol Direct PTH Intact Salicylates Acetaminophen Crossmatch 03/01/19 03/01/19 03/01/19 11:56 13:54 17:59 RBC Hgb Hct MCH MCHC RDW Lymph % (Auto) [place] % (Auto) Eos % (Auto) Lymph # Eos # Seg Neutrophils % PT INR D-Dimer POC ABG pH POC ABG pCO2 POC ABG pO2 Sodium Potassium Chloride Carbon Dioxide BUN 33 H Creatinine 2.8 H D Glucose 176 H POC Glucose 199 H 147 H Phosphorus ALT Alkaline Phosphatase Total Creatine Kinase CK-MB (CK-2) Rel Index Troponin T Albumin LDL Cholesterol Direct PTH Intact Salicylates Acetaminophen Crossmatch 03/02/19 03/02/19 03/02/19 05:15 05:15 05:15 RBC 2.73 L Hgb 7.4 L Hct 23.0 L MCH 27 L MCHC RDW 19.9 H Lymph % (Auto) [place] % (Auto) 7.9 H Eos % (Auto) 7.6 H Lymph # 1.0 L Eos # 0.5 H Seg Neutrophils % PT INR D-Dimer POC ABG pH POC ABG pCO2 POC ABG pO2 Sodium Potassium Chloride Carbon Dioxide BUN 43 H Creatinine 3.2 H Glucose POC Glucose Phosphorus 2.30 L ALT Alkaline Phosphatase Total Creatine Kinase CK-MB (CK-2) Rel Index Troponin T Albumin LDL Cholesterol Direct PTH Intact 267.6 H Salicylates Acetaminophen Crossmatch 03/02/19 03/02/19 03/03/19 12:32 18:20 13:30 RBC Hgb Hct MCH MCHC RDW Lymph % (Auto) [place] % (Auto) Eos % (Auto) Lymph # Eos # Seg Neutrophils % PT INR D-Dimer POC ABG pH POC ABG pCO2 POC ABG pO2 Sodium Potassium Chloride 97.3 L Carbon Dioxide BUN 26 H Creatinine 2.2 H Glucose 73 L POC Glucose 111 H 156 H Phosphorus ALT Alkaline Phosphatase Total Creatine Kinase CK-MB (CK-2) Rel Index Troponin T Albumin LDL Cholesterol Direct PTH Intact Salicylates Acetaminophen Crossmatch 03/04/19 03/04/19 03/04/19 00:02 05:37 05:40 RBC 2.63 L Hgb 7.2 L Hct 22.2 L MCH MCHC RDW 20.2 H Lymph % (Auto) 10.5 L [place] % (Auto) Eos % (Auto) 4.6 H Lymph # 0.7 L Eos # Seg Neutrophils % 76.9 H PT INR D-Dimer POC ABG pH POC ABG pCO2 POC ABG pO2 Sodium Potassium Chloride Carbon Dioxide BUN Creatinine Glucose POC Glucose 136 H 123 H Phosphorus ALT Alkaline Phosphatase Total Creatine Kinase CK-MB (CK-2) Rel Index Troponin T Albumin LDL Cholesterol Direct PTH Intact Salicylates Acetaminophen Crossmatch 03/04/19 03/04/19 03/04/19 05:40 11:39 23:20 RBC Hgb Hct MCH MCHC RDW Lymph % (Auto) [place] % (Auto) Eos % (Auto) Lymph # Eos # Seg Neutrophils % PT INR D-Dimer POC ABG pH POC ABG pCO2 POC ABG pO2 Sodium Potassium Chloride Carbon Dioxide BUN 34 H Creatinine 2.7 H Glucose 114 H POC Glucose 175 H 151 H Phosphorus ALT Alkaline Phosphatase Total Creatine Kinase CK-MB (CK-2) Rel Index Troponin T Albumin LDL Cholesterol Direct PTH Intact Salicylates Acetaminophen Crossmatch 03/05/19 03/05/19 03/05/19 05:37 12:08 17:11 RBC Hgb Hct MCH MCHC RDW Lymph % (Auto) [place] % (Auto) Eos % (Auto) Lymph # Eos # Seg Neutrophils % PT INR D-Dimer POC ABG pH POC ABG pCO2 POC ABG pO2 Sodium Potassium Chloride Carbon Dioxide BUN Creatinine Glucose POC Glucose 134 H 135 H 135 H Phosphorus ALT Alkaline Phosphatase Total Creatine Kinase CK-MB (CK-2) Rel Index Troponin T Albumin LDL Cholesterol Direct PTH Intact Salicylates Acetaminophen Crossmatch 03/06/19 03/06/19 03/06/19 00:16 13:05 18:09 RBC Hgb Hct MCH MCHC RDW Lymph % (Auto) [place] % (Auto) Eos % (Auto) Lymph # Eos # Seg Neutrophils % PT INR D-Dimer POC ABG pH POC ABG pCO2 POC ABG pO2 Sodium Potassium Chloride Carbon Dioxide BUN Creatinine Glucose POC Glucose 117 H 113 H 131 H Phosphorus ALT Alkaline Phosphatase Total Creatine Kinase CK-MB (CK-2) Rel Index Troponin T Albumin LDL Cholesterol Direct PTH Intact Salicylates Acetaminophen Crossmatch 03/07/19 03/08/19 03/08/19 05:25 05:33 16:00 RBC 2.44 L Hgb 6.6 L Hct 20.8 L MCH 27 L MCHC RDW 19.2 H Lymph % (Auto) [place] % (Auto) Eos % (Auto) 8.6 H Lymph # 0.8 L Eos # 0.5 H Seg Neutrophils % 70.7 H PT INR D-Dimer POC ABG pH POC ABG pCO2 POC ABG pO2 Sodium Potassium Chloride Carbon Dioxide BUN Creatinine Glucose POC Glucose 106 H 108 H Phosphorus ALT Alkaline Phosphatase Total Creatine Kinase CK-MB (CK-2) Rel Index Troponin T Albumin LDL Cholesterol Direct PTH Intact Salicylates Acetaminophen Crossmatch 03/08/19 03/08/19 03/08/19 16:00 18:38 Unknown RBC Hgb Hct MCH MCHC RDW Lymph % (Auto) [place] % (Auto) Eos % (Auto) Lymph # Eos # Seg Neutrophils % PT INR D-Dimer POC ABG pH POC ABG pCO2 POC ABG pO2 Sodium Potassium 5.4 H D Chloride Carbon Dioxide BUN 47 H Creatinine 2.6 H Glucose POC Glucose 123 H Phosphorus ALT < 5 L Alkaline Phosphatase Total Creatine Kinase CK-MB (CK-2) Rel Index Troponin T Albumin 2.2 L LDL Cholesterol Direct PTH Intact Salicylates Acetaminophen Crossmatch See Detail 03/09/19 10:48 RBC 2.85 L Hgb 7.7 L Hct 24.2 L MCH 27 L MCHC RDW 18.7 H Lymph % (Auto) [place] % (Auto) Eos % (Auto) Lymph # Eos # Seg Neutrophils % PT INR D-Dimer POC ABG pH POC ABG pCO2 POC ABG pO2 Sodium Potassium Chloride Carbon Dioxide BUN Creatinine Glucose POC Glucose Phosphorus ALT Alkaline Phosphatase Total Creatine Kinase CK-MB (CK-2) Rel Index Troponin T Albumin LDL Cholesterol Direct PTH Intact Salicylates Acetaminophen Crossmatch
[2019-03-09 14:05] LABS: ABG Base Excess 5.6 mmol/L (-2.0-3.0); ABG HCO3 30.5 mmol/L (20.0-26.0); ABG Methemoglobin 0.4 % (0.0-1.5); ABG Oxygen Saturation 96.5 % (95.0-99.0); ABG PCO2 46.5 mm Hg; ABG PH 7.435 pH Units (7.350-7.450); ABG PO2 80.8 mm Hg (80.0-90.0)
[2019-03-09] MEDS ORDERED: LIDOCAINE (1%) 10 MG/1 ML VIAL 20 ML MDV INFILTRATI ONE (14:07)
--- NOTE | 2019-03-09 15:01 | Operative Report ---
Operative Report Operative Report: VASCULAR SURGERY OPERATIVE NOTE PREOP DIAGNOSIS: ESRD on HD, Functional LUE AVG, Perma-cath no longer required POSTOP DIAGNOSIS: Same PROCEDURE: Removal of RIJ Perma-cath Provider: Brijesh Wood PA-C Supervising Physician: Marino Ch MD ANESTHESIA: Local Indication: 63yo AAM with ESRD on HD now through LUE AVG. He has a RIJ PC which he is not currently using. It is now being removed to lower chance of subsequent infection. Informed consent was obtained prior to the procedure from the Pt's next of Kin, Jennifer Mims. Findings: Successful removal of RIJ Perma-cath. The tip and cuff were intact. DETAILS OF THE OPERATIVE PROCEDURE: The procedure was performed at the patient's bedside. He was laid in the supine position. The area over his right chest and neck were prepped with Chlorhexadine solution. He was draped in the usual standard fashion. The exit site was anesthestized with 1% Lidocaine. Gentle retraction was used in combination with blunt dissection. The catheter cuff was freed and the catheter was removed. Pressure was held at the base of his right neck until hemostasis was obtained. A sterile bio-occlusive and gauze dressing was applied. The patient tolerated the procedure without incident. Brijesh Wood PA-C
[2019-03-09] MEDS ORDERED: SODIUM CHLORIDE*PRIMING MACHINE ONLY FOR DIALYSIS MC ONE (16:21)
[2019-03-10] MEDS: INSULIN REGULAR, HUMAN 100 UNITS/1 ML SUB-Q SCH ×4 (05:51→18:00)
[2019-03-10] MEDS: METOPROLOL TARTRATE 25 MG TAB PO SCH ×3 (08:00→20:37)
[2019-03-10] MEDS: IPRATROPIUM/ALBUTEROL SULFATE 3 ML AMPUL.NEB IH SCH ×3 (08:26→20:28)
[2019-03-10] MEDS: FAMOTIDINE 20 MG TAB PO SCH (10:00)
[2019-03-10] MEDS: risperiDONE 1 MG TAB PO SCH (10:00)
[2019-03-10] MEDS: HEPARIN 5,000 UNIT/1 ML VIAL SUB-Q SCH ×2 (10:00→22:27)
[2019-03-10] MEDS: SERTRALINE 100 MG TAB PO SCH (10:00)
--- NOTE | 2019-03-10 10:36 | Progress Note ---
Assessment and Plan Assessment: * End stage renal disease (outpatient TTS schedule) * Acute hypoxic respiratory failure on mechanical ventilation * Atrial fibrillation * History of CVA * Anemia secondary to ESRD * Secondary hyperparathyroidism Plan * Continue HD MWF schedule for now while inpatient * UF as tolerated * AVG in use. Appreciate vascular assistance to remove Permacath * Empiric abx per ID/primary team * Nutrition per primary team * Dose medications for renal function * Epogen TID Overall prognosis remains poor; will continue to follow for ESRD needs Subjective Date of service: 03/10/19 Principal diagnosis: respiratory failure Interval history: received HD yesterday without issues per nursing. patient not able to verbalize any issues due to mental status. Permacath removed by vascular yesterday Objective - Exam Narrative Exam: General appearance: chronically ill, intubated, frail EENT: normocephalic Neck: ETT in place Respiratory: coarse mechanical breath sounds bilaterally Cardiology: regular, S1S2, no edema Gastrointestinal: PEG and colostomy noted Integumentary: warm and dry Psychiatric: unable to assess - Vital Signs Vital signs: Vital Signs - 12hr 03/09/19 03/09/19 03/09/19 22:45 23:00 23:15 Temperature Pulse Rate 79 105 H 80 Pulse Rate [ Anterior Bilateral Throughout] Pulse Rate [ From Monitor] Respiratory 23 33 H 29 H Rate Respiratory Rate [Anterior Bilateral Throughout] Blood Pressure 141/72 153/81 149/69 O2 Sat by Pulse 98 92 97 Oximetry 03/09/19 03/09/19 03/09/19 23:30 23:32 23:45 Temperature 98.5 F Pulse Rate 81 81 Pulse Rate [ Anterior Bilateral Throughout] Pulse Rate [ From Monitor] Respiratory 28 H 30 H Rate Respiratory Rate [Anterior Bilateral Throughout] Blood Pressure 132/65 131/67 O2 Sat by Pulse 100 100 Oximetry 03/10/19 03/10/19 03/10/19 00:00 00:15 00:30 Temperature Pulse Rate 81 79 82 Pulse Rate [ Anterior Bilateral Throughout] Pulse Rate [ 80 From Monitor] Respiratory 20 18 18 Rate Respiratory Rate [Anterior Bilateral Throughout] Blood Pressure 136/69 135/71 143/70 O2 Sat by Pulse 100 100 84 Oximetry 03/10/19 03/10/19 03/10/19 00:45 01:00 01:15 Temperature Pulse Rate 81 81 82 Pulse Rate [ Anterior Bilateral Throughout] Pulse Rate [ From Monitor] Respiratory 26 H 14 28 H Rate Respiratory Rate [Anterior Bilateral Throughout] Blood Pressure 145/65 139/67 135/68 O2 Sat by Pulse 85 86 100 Oximetry 03/10/19 03/10/19 03/10/19 01:31 01:45 02:00 Temperature Pulse Rate 83 80 81 Pulse Rate [ Anterior Bilateral Throughout] Pulse Rate [ From Monitor] Respiratory 34 H 22 22 Rate Respiratory Rate [Anterior Bilateral Throughout] Blood Pressure 149/59 143/69 141/66 O2 Sat by Pulse 89 97 90 Oximetry 03/10/19 03/10/19 03/10/19 02:15 02:30 02:45 Temperature 99.4 F Pulse Rate 88 81 82 Pulse Rate [ Anterior Bilateral Throughout] Pulse Rate [ From Monitor] Respiratory 24 15 21 Rate Respiratory Rate [Anterior Bilateral Throughout] Blood Pressure 145/68 138/66 139/65 O2 Sat by Pulse 89 90 99 Oximetry 03/10/19 03/10/19 03/10/19 03:02 03:15 03:30 Temperature Pulse Rate 81 81 81 Pulse Rate [ Anterior Bilateral Throughout] Pulse Rate [ From Monitor] Respiratory 18 23 24 Rate Respiratory Rate [Anterior Bilateral Throughout] Blood Pressure 128/64 135/65 O2 Sat by Pulse 100 100 100 Oximetry 03/10/19 03/10/19 03/10/19 03:45 04:00 04:15 Temperature Pulse Rate 81 81 82 Pulse Rate [ Anterior Bilateral Throughout] Pulse Rate [ 84 From Monitor] Respiratory 18 37 H 31 H Rate Respiratory Rate [Anterior Bilateral Throughout] Blood Pressure 129/63 132/65 131/67 O2 Sat by Pulse 100 100 100 Oximetry 03/10/19 03/10/19 03/10/19 04:30 04:45 05:00 Temperature Pulse Rate 90 104 H 87 Pulse Rate [ Anterior Bilateral Throughout] Pulse Rate [ From Monitor] Respiratory 19 12 28 H Rate Respiratory Rate [Anterior Bilateral Throughout] Blood Pressure 144/69 144/69 144/74 O2 Sat by Pulse 89 98 100 Oximetry 03/10/19 03/10/19 03/10/19 05:15 05:30 05:45 Temperature Pulse Rate 87 81 87 Pulse Rate [ Anterior Bilateral Throughout] Pulse Rate [ From Monitor] Respiratory 20 9 L 12 Rate Respiratory Rate [Anterior Bilateral Throughout] Blood Pressure 150/75 143/73 146/75 O2 Sat by Pulse 98 100 100 Oximetry 08/03/10/19 03/10/19 06:00 06:15 06:30 Temperature Pulse Rate 81 81 83 Pulse Rate [ Anterior Bilateral Throughout] Pulse Rate [ From Monitor] Respiratory 32 H 24 33 H Rate Respiratory Rate [Anterior Bilateral Throughout] Blood Pressure 142/71 153/71 141/74 O2 Sat by Pulse 100 98 94 Oximetry 03/10/19 03/10/19 03/10/19 06:45 07:00 07:15 Temperature Pulse Rate 83 83 94 H Pulse Rate [ Anterior Bilateral Throughout] Pulse Rate [ From Monitor] Respiratory 32 H 27 H 27 H Rate Respiratory Rate [Anterior Bilateral Throughout] Blood Pressure 138/67 138/67 153/78 O2 Sat by Pulse 95 96 94 Oximetry 03/10/19 03/10/19 03/10/19 07:30 07:45 08:00 Temperature 98.0 F Pulse Rate 84 83 105 H Pulse Rate [ Anterior Bilateral Throughout] Pulse Rate [ 86 From Monitor] Respiratory 32 H 31 H 34 H Rate Respiratory Rate [Anterior Bilateral Throughout] Blood Pressure 140/69 141/70 158/72 O2 Sat by Pulse 95 97 96 Oximetry 03/10/19 03/10/19 03/10/19 08:15 08:25 08:26 Temperature Pulse Rate 88 Pulse Rate [ 104 H Anterior Bilateral Throughout] Pulse Rate [ From Monitor] Respiratory 32 H Rate Respiratory 24 Rate [Anterior Bilateral Throughout] Blood Pressure 145/70 O2 Sat by Pulse 98 96 Oximetry - Lab 03/09/19 10:48 03/08/19 16:00 Most recent lab results ABG pH 7.435 pH Units (7.350-7.450) 03/09/19 13:53 ABG pCO2 46.5 mm Hg 03/09/19 13:53 ABG pO2 80.8 mm Hg (80.0-90.0) 03/09/19 13:53 ABG HCO3 30.5 mmol/L (20.0-26.0) H 03/09/19 13:53 ABG O2 Saturation 96.5 % (95.0-99.0) 03/09/19 13:53 Calcium 10.0 mg/dL (8.4-10.2) 03/08/19 16:00 Phosphorus 2.30 mg/dL (2.5-4.5) L 03/02/19 05:15 Magnesium 2.20 mg/dL (1.7-2.3) 03/02/19 05:15 Medications & Allergies - Medications Allergies/Adverse Reactions: Allergies haloperidol [From Haldol] Adverse Reaction (Verified 03/13/18 12:10) Unknown haloperidol lactate [From Haldol] Adverse Reaction (Verified 03/13/18 12:10) Unknown Home Medications: Home Medications Medication Instructions Recorded Confirmed Last Taken Type risperiDONE [RisperDAL] 1 mg PO QAM 03/13/18 02/21/19 Unknown History Sertraline [Zoloft] 100 mg PO QDAY 08/26/18 02/21/19 Unknown History Polyethylene Glycol 3350 [Miralax 17 gm PO QDAY #30 packet 11/05/18 02/21/19 Unknown Rx 3350] Aspirin EC [Halfprin EC] 81 mg PO DAILY #30 11/19/18 02/21/19 Unknown Rx Docusate Sodium [Colace CAP] 100 mg PO BID #60 11/19/18 02/21/19 Unknown Rx Folic Acid [Folvite] 1 mg PO DAILY #30 tab 11/19/18 02/21/19 Unknown Rx Famotidine [Pepcid] 20 mg PO DAILY tablet 12/08/18 02/21/19 Unknown Rx Gabapentin [Neurontin] 100 mg PO QHS capsule 12/08/18 02/21/19 Unknown Rx Metoprolol [Lopressor TAB] 50 mg PO BID 30 Days tablet 12/08/18 02/21/19 Unknown Rx Sevelamer Carbonate [Renvela] 800 mg PO TIDWM tablet 12/08/18 02/21/19 Unknown Rx hydrALAZINE [Apresoline TAB] 100 mg PO Q8HR #120 tablet 12/08/18 02/21/19 Unknown Rx Acetaminophen [Acetaminophen TAB] 650 mg PO Q12H PRN 12/15/18 02/21/19 Unknown History Glucagon,Human Recombinant 1 mg IJ Q15MIN PRN 12/15/18 02/21/19 Unknown History [Glucagon Emergency Kit] Insulin Aspart [NovoLOG 100 See Protocol SQ QWEEK 12/15/18 02/21/19 Unknown History UNITS/ML VIAL] Active Medications: Generic Name Dose Route Start Last Admin Trade Name Freq PRN Reason Stop Dose Admin Acetaminophen 650 mg 02/21/19 22:19 03/05/19 08:16 Tylenol PO 650 mg Q4H PRN Administration Pain MILD(1-3)/Fever >100.5/HILL Albuterol/Ipratropium 1 ampul 02/24/19 20:00 03/10/19 08:26 Duoneb *Not For Prn Use* IH 1 ampul TIDRT SANCHEZ Administration Lipase/Protease/Amylase 1 each 03/05/19 14:04 Pancrejewel Barrientos 10,500 Unit FEEDTUBE PRN PRN For Clogged Feeding Tube Dextrose 50 ml 02/21/19 22:22 03/03/19 17:37 D50w (25gm) Syringe IV 50 ml PRN PRN Administration Hypoglycemia Famotidine 20 mg 02/23/19 10:00 03/10/19 10:00 Pepcid PO 20 mg DAILY SANCHEZ Administration Heparin Sodium (Porcine) 5,000 unit 03/04/19 22:00 03/10/19 10:00 Heparin SUB-Q 5,000 unit Q12HR SANCHEZ Administration Hydrophilic Ointment 1 applic 02/21/19 18:24 03/05/19 08:16 Vaseline Lip Therapy TP 1 applic Q2HR PRN Administration Dry Lips Sodium Chloride 100 mls @ 999 mls/hr 02/26/19 09:00 Nacl 0.9% IV UMA PRN Hypotension Insulin Human Regular 0 units 02/26/19 12:00 03/10/19 05:52 Humulin R SUB-Q Not Given Q6HR [facility] Protocol Metoprolol Tartrate 2.5 mg 02/28/19 12:06 03/01/19 10:32 Lopressor IV 2.5 mg Q4HR PRN Administration Tachycardia Metoprolol Tartrate 25 mg 03/02/19 14:00 03/10/19 08:00 Lopressor PO 25 mg TID SANCHEZ Administration Multi-Ingred Cream/Lotion/Oil/Oint 1 applic 02/21/19 18:24 Artificial Tears Ophth Oint OU Q4HR PRN Dry Eye(s) Ondansetron HCl 4 mg 02/21/19 22:19 Zofran IV Q8H PRN Nausea And Vomiting Risperidone 1 mg 02/25/19 13:00 03/10/19 10:00 Risperdal PO 1 mg DAILY SANCHEZ Administration Sertraline HCl 100 mg 02/25/19 13:00 03/10/19 10:00 Zoloft PO 100 mg DAILY SANCHEZ Administration Simple Syrup 15 ml 03/05/19 14:04 Simple Syrup FEEDTUBE PRN PRN Hypoglycemia Simple Syrup 30 ml 03/05/19 14:04 Simple Syrup FEEDTUBE PRN PRN Hypoglycemia Sodium Bicarbonate 325 mg 03/05/19 14:04 Sodium Bicarbonate FEEDTUBE PRN PRN For Clogged Feeding Tube Sodium Chloride 10 ml 02/22/19 10:00 03/10/19 10:00 Sodium Chloride Flush Syringe 10 Ml IV 10 ml BID SANCHEZ Administration Sodium Chloride 10 ml 02/21/19 22:19 02/24/19 22:00 Sodium Chloride Flush Syringe 10 Ml IV 10 ml PRN PRN Administration LINE FLUSH Tramadol HCl 50 mg 03/05/19 10:08 03/08/19 16:54 Ultram PO 50 mg Q6H PRN Administration Pain, Moderate (4-6)
--- NOTE | 2019-03-10 12:14 | Progress Note ---
Assessment and Plan mp: 1. Acute encephalopathy, probably metabolic or toxic 2. A/C systolic CHF 3. Dilated CMP 4. Pulm HTN 5. ESRD 6. RUL atelectasis, probably mucous plugging 7. Acute respiratory failure, improving, off vent Rec: 1. Chest PT with vest, Duonebs; f/u CXR in AM and add back Mucomyst nebs/Mucinex if continued atelectasis 2. Daily PSV/SBT 3. Avoid sedatives; resumed psych meds 4. DVT and GI PPx 5. TFs per PEG 6. Colostomy care 7. HD per renal 8. Transferred to [facility] while Await LTAC; poor long-term prognosis Critical care time 31 minute Subjective Date of service: 03/10/19 Principal diagnosis: respiratory failure Interval history: Remained unresponsive with trach off mechanical ventilator on TPiece mild to moderate tachypnea noted no distress. No significant change. Objective Vital Signs - 12hr 03/10/19 03/10/19 03/10/19 00:15 00:30 00:45 Temperature Pulse Rate 79 82 81 Pulse Rate [ Anterior Bilateral Throughout] Pulse Rate [ From Monitor] Respiratory 18 18 26 H Rate Respiratory Rate [Anterior Bilateral Throughout] Blood Pressure 135/71 143/70 145/65 O2 Sat by Pulse 100 84 85 Oximetry 03/10/19 03/10/19 03/10/19 01:00 01:15 01:31 Temperature Pulse Rate 81 82 83 Pulse Rate [ Anterior Bilateral Throughout] Pulse Rate [ From Monitor] Respiratory 14 28 H 34 H Rate Respiratory Rate [Anterior Bilateral Throughout] Blood Pressure 139/67 135/68 149/59 O2 Sat by Pulse 86 100 89 Oximetry 03/10/19 03/10/19 03/10/19 01:45 02:00 02:15 Temperature Pulse Rate 80 81 88 Pulse Rate [ Anterior Bilateral Throughout] Pulse Rate [ From Monitor] Respiratory 22 22 24 Rate Respiratory Rate [Anterior Bilateral Throughout] Blood Pressure 143/69 141/66 145/68 O2 Sat by Pulse 97 90 89 Oximetry 03/10/19 03/10/19 03/10/19 02:30 02:45 03:02 Temperature 99.4 F Pulse Rate 81 82 81 Pulse Rate [ Anterior Bilateral Throughout] Pulse Rate [ From Monitor] Respiratory 15 21 18 Rate Respiratory Rate [Anterior Bilateral Throughout] Blood Pressure 138/66 139/65 O2 Sat by Pulse 90 99 100 Oximetry 03/10/19 03/10/19 03/10/19 03:15 03:30 03:45 Temperature Pulse Rate 81 81 81 Pulse Rate [ Anterior Bilateral Throughout] Pulse Rate [ From Monitor] Respiratory 23 24 18 Rate Respiratory Rate [Anterior Bilateral Throughout] Blood Pressure 128/64 135/65 129/63 O2 Sat by Pulse 100 100 100 Oximetry 03/10/19 03/10/19 03/10/19 04:00 04:15 04:30 Temperature Pulse Rate 81 82 90 Pulse Rate [ Anterior Bilateral Throughout] Pulse Rate [ 84 From Monitor] Respiratory 37 H 31 H 19 Rate Respiratory Rate [Anterior Bilateral Throughout] Blood Pressure 132/65 131/67 144/69 O2 Sat by Pulse 100 100 89 Oximetry 03/10/19 03/10/19 03/10/19 04:45 05:00 05:15 Temperature Pulse Rate 104 H 87 87 Pulse Rate [ Anterior Bilateral Throughout] Pulse Rate [ From Monitor] Respiratory 12 28 H 20 Rate Respiratory Rate [Anterior Bilateral Throughout] Blood Pressure 144/69 144/74 150/75 O2 Sat by Pulse 98 100 98 Oximetry 03/10/19 03/10/19 03/10/19 05:30 05:45 06:00 Temperature Pulse Rate 81 87 81 Pulse Rate [ Anterior Bilateral Throughout] Pulse Rate [ From Monitor] Respiratory 9 L 12 32 H Rate Respiratory Rate [Anterior Bilateral Throughout] Blood Pressure 143/73 146/75 142/71 O2 Sat by Pulse 100 100 100 Oximetry 03/10/19 03/10/19 03/10/19 06:15 06:30 06:45 Temperature Pulse Rate 81 83 83 Pulse Rate [ Anterior Bilateral Throughout] Pulse Rate [ From Monitor] Respiratory 24 33 H 32 H Rate Respiratory Rate [Anterior Bilateral Throughout] Blood Pressure 153/71 141/74 138/67 O2 Sat by Pulse 98 94 95 Oximetry 03/10/19 03/10/19 03/10/19 07:00 07:15 07:30 Temperature Pulse Rate 83 94 H 84 Pulse Rate [ Anterior Bilateral Throughout] Pulse Rate [ From Monitor] Respiratory 27 H 27 H 32 H Rate Respiratory Rate [Anterior Bilateral Throughout] Blood Pressure 138/67 153/78 140/69 O2 Sat by Pulse 96 94 95 Oximetry 03/10/19 03/10/19 03/10/19 07:45 08:00 08:15 Temperature 98.0 F Pulse Rate 83 105 H 88 Pulse Rate [ Anterior Bilateral Throughout] Pulse Rate [ 86 From Monitor] Respiratory 31 H 34 H 32 H Rate Respiratory Rate [Anterior Bilateral Throughout] Blood Pressure 141/70 158/72 145/70 O2 Sat by Pulse 97 96 98 Oximetry 03/10/19 03/10/19 08:25 08:26 Temperature Pulse Rate Pulse Rate [ 104 H Anterior Bilateral Throughout] Pulse Rate [ From Monitor] Respiratory Rate Respiratory 24 Rate [Anterior Bilateral Throughout] Blood Pressure O2 Sat by Pulse 96 Oximetry Constitutional: no acute distress, other (critically ill on vent sp trach) Eyes: non-icteric Effort: normal Ascultation: Bilateral: diminished breath sounds, other (coarse BS bilaterally) Percussion: Bilateral: not dull Cardiovascular: regular rate and rhythm (no mrg) Gastrointestinal: normoactive bowel sounds, soft, non-tender, non-distended Extremities: no edema, pink and warm Neurologic: other (mild weakness LUE, o/w nonfocal) Psychiatric: mood appropriate, affect normal CBC and BMP: 03/09/19 10:48 03/08/19 16:00 ABG, PT/INR, D-dimer: ABG POC ABG pH 7.483 (7.35-7.45) H 02/27/19 04:35 ABG pH 7.435 pH Units (7.350-7.450) 03/09/19 13:53 POC ABG pCO2 37.5 (35-45) 02/27/19 04:35 ABG pCO2 46.5 mm Hg 03/09/19 13:53 POC ABG pO2 61 (80-105) L 02/27/19 04:35 ABG pO2 80.8 mm Hg (80.0-90.0) 03/09/19 13:53 POC ABG HCO3 28.1 (22-26 mml/L) 02/27/19 04:35 POC ABG Total CO2 29 (23-27mmol/L) 02/27/19 04:35 POC ABG O2 Sat 93 02/27/19 04:35 ABG O2 Saturation 96.5 % (95.0-99.0) 03/09/19 13:53 PT/INR, D-dimer PT 16.3 Sec. (12.2-14.9) H 03/01/19 09:39 INR 1.35 (0.87-1.13) H 03/01/19 09:39 2987.82 ng/mlDDU (0-234) H 02/22/19 05:54 Abnormal lab findings: Abnormal Labs 02/21/19 02/21/19 02/21/19 18:30 18:30 18:30 RBC 3.26 L Hgb 8.8 L Hct 29.0 L MCH 27 L MCHC 30 L RDW 19.1 H Lymph % (Auto) 6.1 L Lamb % (Auto) Eos % (Auto) Lymph # 0.4 L Eos # Seg Neutrophils % 86.2 H PT INR D-Dimer POC ABG pH POC ABG pCO2 POC ABG pO2 ABG HCO3 ABG Base Excess ABG Hemoglobin Oxyhemoglobin Sodium 133 L Potassium 3.3 L Chloride 93.1 L Carbon Dioxide 33 H BUN Creatinine Glucose 161 H POC Glucose Phosphorus ALT Alkaline Phosphatase 136 H Total Creatine Kinase 37 L CK-MB (CK-2) Rel Index Troponin T 0.192 H* Albumin 2.4 L LDL Cholesterol Direct 36 L PTH Intact Salicylates Acetaminophen Crossmatch 02/21/19 02/21/19 02/21/19 18:42 20:04 20:04 RBC Hgb Hct MCH MCHC RDW Lymph % (Auto) Lamb % (Auto) Eos % (Auto) Lymph # Eos # Seg Neutrophils % PT INR D-Dimer POC ABG pH POC ABG pCO2 56.7 H POC ABG pO2 291 H ABG HCO3 ABG Base Excess ABG Hemoglobin Oxyhemoglobin Sodium Potassium Chloride Carbon Dioxide BUN Creatinine Glucose POC Glucose Phosphorus ALT Alkaline Phosphatase Total Creatine Kinase CK-MB (CK-2) Rel Index Troponin T Albumin LDL Cholesterol Direct PTH Intact Salicylates < 0.3 L Acetaminophen < 5.0 L Crossmatch 02/21/19 02/22/19 02/22/19 22:35 03:42 03:42 RBC 3.20 L Hgb 8.8 L Hct 27.6 L MCH MCHC RDW 18.9 H Lymph % (Auto) 7.4 L Lamb % (Auto) Eos % (Auto) Lymph # 0.7 L Eos # Seg Neutrophils % 84.7 H PT INR D-Dimer POC ABG pH POC ABG pCO2 POC ABG pO2 ABG HCO3 ABG Base Excess ABG Hemoglobin Oxyhemoglobin Sodium 134 L Potassium 2.6 L* D Chloride Carbon Dioxide BUN Creatinine Glucose POC Glucose Phosphorus ALT Alkaline Phosphatase Total Creatine Kinase CK-MB (CK-2) Rel Index 5.2 H Troponin T 0.202 H* Albumin LDL Cholesterol Direct PTH Intact Salicylates Acetaminophen Crossmatch 02/22/19 02/22/19 02/22/19 03:42 05:54 09:04 RBC Hgb Hct MCH MCHC RDW Lymph % (Auto) Lamb % (Auto) Eos % (Auto) Lymph # Eos # Seg Neutrophils % PT INR D-Dimer 2987.82 H POC ABG pH 7.451 H POC ABG pCO2 POC ABG pO2 ABG HCO3 ABG Base Excess ABG Hemoglobin Oxyhemoglobin Sodium Potassium Chloride Carbon Dioxide BUN Creatinine Glucose POC Glucose Phosphorus ALT Alkaline Phosphatase Total Creatine Kinase CK-MB (CK-2) Rel Index 5.7 H Troponin T 0.193 H* Albumin LDL Cholesterol Direct PTH Intact Salicylates Acetaminophen Crossmatch 02/22/19 02/22/19 02/23/19 10:36 23:56 00:52 RBC Hgb Hct MCH MCHC RDW Lymph % (Auto) Lamb % (Auto) Eos % (Auto) Lymph # Eos # Seg Neutrophils % PT INR D-Dimer POC ABG pH POC ABG pCO2 POC ABG pO2 ABG HCO3 ABG Base Excess ABG Hemoglobin Oxyhemoglobin Sodium Potassium 3.1 L Chloride Carbon Dioxide BUN Creatinine Glucose POC Glucose 58 L 111 H Phosphorus ALT Alkaline Phosphatase Total Creatine Kinase CK-MB (CK-2) Rel Index Troponin T Albumin LDL Cholesterol Direct PTH Intact Salicylates Acetaminophen Crossmatch 02/23/19 02/23/19 02/23/19 05:00 06:35 14:26 RBC Hgb Hct MCH MCHC RDW Lymph % (Auto) Lamb % (Auto) Eos % (Auto) Lymph # Eos # Seg Neutrophils % PT INR D-Dimer POC ABG pH POC ABG pCO2 POC ABG pO2 ABG HCO3 ABG Base Excess ABG Hemoglobin Oxyhemoglobin Sodium 135 L Potassium 3.1 L Chloride Carbon Dioxide BUN 21 H Creatinine 2.0 H Glucose 57 L POC Glucose 64 L 62 L Phosphorus ALT Alkaline Phosphatase Total Creatine Kinase CK-MB (CK-2) Rel Index Troponin T Albumin LDL Cholesterol Direct PTH Intact Salicylates Acetaminophen Crossmatch 02/24/19 02/24/19 02/24/19 02:11 04:12 04:55 RBC 2.84 L Hgb 7.8 L Hct 24.5 L MCH MCHC RDW 19.5 H Lymph % (Auto) Lamb % (Auto) Eos % (Auto) Lymph # Eos # Seg Neutrophils % PT INR D-Dimer POC ABG pH 7.511 H POC ABG pCO2 33.9 L POC ABG pO2 62 L ABG HCO3 ABG Base Excess ABG Hemoglobin Oxyhemoglobin Sodium Potassium Chloride Carbon Dioxide BUN Creatinine Glucose POC Glucose 69 L Phosphorus ALT Alkaline Phosphatase Total Creatine Kinase CK-MB (CK-2) Rel Index Troponin T Albumin LDL Cholesterol Direct PTH Intact Salicylates Acetaminophen Crossmatch 02/24/19 02/24/19 02/25/19 04:55 05:41 04:45 RBC Hgb Hct MCH MCHC RDW Lymph % (Auto) Lamb % (Auto) Eos % (Auto) Lymph # Eos # Seg Neutrophils % PT INR D-Dimer POC ABG pH 7.466 H POC ABG pCO2 POC ABG pO2 75 L ABG HCO3 ABG Base Excess ABG Hemoglobin Oxyhemoglobin Sodium Potassium Chloride Carbon Dioxide BUN Creatinine 1.8 H Glucose 73 L POC Glucose 127 H Phosphorus ALT Alkaline Phosphatase Total Creatine Kinase CK-MB (CK-2) Rel Index Troponin T Albumin LDL Cholesterol Direct PTH Intact Salicylates Acetaminophen Crossmatch 02/25/19 02/25/19 02/26/19 16:34 21:33 03:45 RBC 2.96 L Hgb 8.0 L Hct 25.8 L MCH 27 L MCHC 31 L RDW 20.0 H Lymph % (Auto) Lamb % (Auto) Eos % (Auto) Lymph # Eos # Seg Neutrophils % PT INR D-Dimer POC ABG pH POC ABG pCO2 POC ABG pO2 ABG HCO3 ABG Base Excess ABG Hemoglobin Oxyhemoglobin Sodium Potassium Chloride Carbon Dioxide BUN Creatinine Glucose POC Glucose 141 H 106 H Phosphorus ALT Alkaline Phosphatase Total Creatine Kinase CK-MB (CK-2) Rel Index Troponin T Albumin LDL Cholesterol Direct PTH Intact Salicylates Acetaminophen Crossmatch 02/26/19 02/26/19 02/26/19 03:45 04:13 07:53 RBC Hgb Hct MCH MCHC RDW Lymph % (Auto) Lamb % (Auto) Eos % (Auto) Lymph # Eos # Seg Neutrophils % PT INR D-Dimer POC ABG pH 7.470 H POC ABG pCO2 POC ABG pO2 ABG HCO3 ABG Base Excess ABG Hemoglobin Oxyhemoglobin Sodium Potassium Chloride Carbon Dioxide BUN Creatinine 1.8 H Glucose POC Glucose 110 H Phosphorus ALT Alkaline Phosphatase Total Creatine Kinase CK-MB (CK-2) Rel Index Troponin T Albumin LDL Cholesterol Direct PTH Intact Salicylates Acetaminophen Crossmatch 02/26/19 02/26/19 02/27/19 11:56 17:43 00:12 RBC Hgb Hct MCH MCHC RDW Lymph % (Auto) Lamb % (Auto) Eos % (Auto) Lymph # Eos # Seg Neutrophils % PT INR D-Dimer POC ABG pH POC ABG pCO2 POC ABG pO2 ABG HCO3 ABG Base Excess ABG Hemoglobin Oxyhemoglobin Sodium Potassium Chloride Carbon Dioxide BUN Creatinine Glucose POC Glucose 112 H 127 H 127 H Phosphorus ALT Alkaline Phosphatase Total Creatine Kinase CK-MB (CK-2) Rel Index Troponin T Albumin LDL Cholesterol Direct PTH Intact Salicylates Acetaminophen Crossmatch 02/27/19 02/27/19 02/27/19 04:35 13:15 18:02 RBC Hgb Hct MCH MCHC RDW Lymph % (Auto) Lamb % (Auto) Eos % (Auto) Lymph # Eos # Seg Neutrophils % PT INR D-Dimer POC ABG pH 7.483 H POC ABG pCO2 POC ABG pO2 61 L ABG HCO3 ABG Base Excess ABG Hemoglobin Oxyhemoglobin Sodium Potassium Chloride Carbon Dioxide BUN Creatinine Glucose POC Glucose 143 H 106 H Phosphorus ALT Alkaline Phosphatase Total Creatine Kinase CK-MB (CK-2) Rel Index Troponin T Albumin LDL Cholesterol Direct PTH Intact Salicylates Acetaminophen Crossmatch 02/28/19 02/28/19 02/28/19 05:50 11:59 17:52 RBC Hgb Hct MCH MCHC RDW Lymph % (Auto) Lamb % (Auto) Eos % (Auto) Lymph # Eos # Seg Neutrophils % PT INR D-Dimer POC ABG pH POC ABG pCO2 POC ABG pO2 ABG HCO3 ABG Base Excess ABG Hemoglobin Oxyhemoglobin Sodium Potassium Chloride Carbon Dioxide BUN Creatinine Glucose POC Glucose 134 H 128 H 142 H Phosphorus ALT Alkaline Phosphatase Total Creatine Kinase CK-MB (CK-2) Rel Index Troponin T Albumin LDL Cholesterol Direct PTH Intact Salicylates Acetaminophen Crossmatch 02/28/19 03/01/19 03/01/19 23:13 05:40 09:39 RBC Hgb Hct MCH MCHC RDW Lymph % (Auto) Lamb % (Auto) Eos % (Auto) Lymph # Eos # Seg Neutrophils % PT 16.3 H INR 1.35 H D-Dimer POC ABG pH POC ABG pCO2 POC ABG pO2 ABG HCO3 ABG Base Excess ABG Hemoglobin Oxyhemoglobin Sodium Potassium Chloride Carbon Dioxide BUN Creatinine Glucose POC Glucose 112 H 111 H Phosphorus ALT Alkaline Phosphatase Total Creatine Kinase CK-MB (CK-2) Rel Index Troponin T Albumin LDL Cholesterol Direct PTH Intact Salicylates Acetaminophen Crossmatch 03/01/19 03/01/19 03/01/19 11:56 13:54 17:59 RBC Hgb Hct MCH MCHC RDW Lymph % (Auto) Lamb % (Auto) Eos % (Auto) Lymph # Eos # Seg Neutrophils % PT INR D-Dimer POC ABG pH POC ABG pCO2 POC ABG pO2 ABG HCO3 ABG Base Excess ABG Hemoglobin Oxyhemoglobin Sodium Potassium Chloride Carbon Dioxide BUN 33 H Creatinine 2.8 H D Glucose 176 H POC Glucose 199 H 147 H Phosphorus ALT Alkaline Phosphatase Total Creatine Kinase CK-MB (CK-2) Rel Index Troponin T Albumin LDL Cholesterol Direct PTH Intact Salicylates Acetaminophen Crossmatch 03/02/19 03/02/19 03/02/19 05:15 05:15 05:15 RBC 2.73 L Hgb 7.4 L Hct 23.0 L MCH 27 L MCHC RDW 19.9 H Lymph % (Auto) Lamb % (Auto) 7.9 H Eos % (Auto) 7.6 H Lymph # 1.0 L Eos # 0.5 H Seg Neutrophils % PT INR D-Dimer POC ABG pH POC ABG pCO2 POC ABG pO2 ABG HCO3 ABG Base Excess ABG Hemoglobin Oxyhemoglobin Sodium Potassium Chloride Carbon Dioxide BUN 43 H Creatinine 3.2 H Glucose POC Glucose Phosphorus 2.30 L ALT Alkaline Phosphatase Total Creatine Kinase CK-MB (CK-2) Rel Index Troponin T Albumin LDL Cholesterol Direct PTH Intact 267.6 H Salicylates Acetaminophen Crossmatch 03/02/19 03/02/19 03/03/19 12:32 18:20 13:30 RBC Hgb Hct MCH MCHC RDW Lymph % (Auto) Lamb % (Auto) Eos % (Auto) Lymph # Eos # Seg Neutrophils % PT INR D-Dimer POC ABG pH POC ABG pCO2 POC ABG pO2 ABG HCO3 ABG Base Excess ABG Hemoglobin Oxyhemoglobin Sodium Potassium Chloride 97.3 L Carbon Dioxide BUN 26 H Creatinine 2.2 H Glucose 73 L POC Glucose 111 H 156 H Phosphorus ALT Alkaline Phosphatase Total Creatine Kinase CK-MB (CK-2) Rel Index Troponin T Albumin LDL Cholesterol Direct PTH Intact Salicylates Acetaminophen Crossmatch 03/04/19 03/04/19 03/04/19 00:02 05:37 05:40 RBC 2.63 L Hgb 7.2 L Hct 22.2 L MCH MCHC RDW 20.2 H Lymph % (Auto) 10.5 L Lamb % (Auto) Eos % (Auto) 4.6 H Lymph # 0.7 L Eos # Seg Neutrophils % 76.9 H PT INR D-Dimer POC ABG pH POC ABG pCO2 POC ABG pO2 ABG HCO3 ABG Base Excess ABG Hemoglobin Oxyhemoglobin Sodium Potassium Chloride Carbon Dioxide BUN Creatinine Glucose POC Glucose 136 H 123 H Phosphorus ALT Alkaline Phosphatase Total Creatine Kinase CK-MB (CK-2) Rel Index Troponin T Albumin LDL Cholesterol Direct PTH Intact Salicylates Acetaminophen Crossmatch 03/04/19 03/04/19 03/04/19 05:40 11:39 23:20 RBC Hgb Hct MCH MCHC RDW Lymph % (Auto) Lamb % (Auto) Eos % (Auto) Lymph # Eos # Seg Neutrophils % PT INR D-Dimer POC ABG pH POC ABG pCO2 POC ABG pO2 ABG HCO3 ABG Base Excess ABG Hemoglobin Oxyhemoglobin Sodium Potassium Chloride Carbon Dioxide BUN 34 H Creatinine 2.7 H Glucose 114 H POC Glucose 175 H 151 H Phosphorus ALT Alkaline Phosphatase Total Creatine Kinase CK-MB (CK-2) Rel Index Troponin T Albumin LDL Cholesterol Direct PTH Intact Salicylates Acetaminophen Crossmatch 03/05/19 03/05/19 03/05/19 05:37 12:08 17:11 RBC Hgb Hct MCH MCHC RDW Lymph % (Auto) Lamb % (Auto) Eos % (Auto) Lymph # Eos # Seg Neutrophils % PT INR D-Dimer POC ABG pH POC ABG pCO2 POC ABG pO2 ABG HCO3 ABG Base Excess ABG Hemoglobin Oxyhemoglobin Sodium Potassium Chloride Carbon Dioxide BUN Creatinine Glucose POC Glucose 134 H 135 H 135 H Phosphorus ALT Alkaline Phosphatase Total Creatine Kinase CK-MB (CK-2) Rel Index Troponin T Albumin LDL Cholesterol Direct PTH Intact Salicylates Acetaminophen Crossmatch 03/06/19 03/06/1903/06/19 00:16 13:05 18:09 RBC Hgb Hct MCH MCHC RDW Lymph % (Auto) Lamb % (Auto) Eos % (Auto) Lymph # Eos # Seg Neutrophils % PT INR D-Dimer POC ABG pH POC ABG pCO2 POC ABG pO2 ABG HCO3 ABG Base Excess ABG Hemoglobin Oxyhemoglobin Sodium Potassium Chloride Carbon Dioxide BUN Creatinine Glucose POC Glucose 117 H 113 H 131 H Phosphorus ALT Alkaline Phosphatase Total Creatine Kinase CK-MB (CK-2) Rel Index Troponin T Albumin LDL Cholesterol Direct PTH Intact Salicylates Acetaminophen Crossmatch 03/07/19 03/08/19 03/08/19 05:25 05:33 16:00 RBC 2.44 L Hgb 6.6 L Hct 20.8 L MCH 27 L MCHC RDW 19.2 H Lymph % (Auto) Lamb % (Auto) Eos % (Auto) 8.6 H Lymph # 0.8 L Eos # 0.5 H Seg Neutrophils % 70.7 H PT INR D-Dimer POC ABG pH POC ABG pCO2 POC ABG pO2 ABG HCO3 ABG Base Excess ABG Hemoglobin Oxyhemoglobin Sodium Potassium Chloride Carbon Dioxide BUN Creatinine Glucose POC Glucose 106 H 108 H Phosphorus ALT Alkaline Phosphatase Total Creatine Kinase CK-MB (CK-2) Rel Index Troponin T Albumin LDL Cholesterol Direct PTH Intact Salicylates Acetaminophen Crossmatch 03/08/19 03/08/19 03/08/19 16:00 18:38 Unknown RBC Hgb Hct MCH MCHC RDW Lymph % (Auto) Lamb % (Auto) Eos % (Auto) Lymph # Eos # Seg Neutrophils % PT INR D-Dimer POC ABG pH POC ABG pCO2 POC ABG pO2 ABG HCO3 ABG Base Excess ABG Hemoglobin Oxyhemoglobin Sodium Potassium 5.4 H D Chloride Carbon Dioxide BUN 47 H Creatinine 2.6 H Glucose POC Glucose 123 H Phosphorus ALT < 5 L Alkaline Phosphatase Total Creatine Kinase CK-MB (CK-2) Rel Index Troponin T Albumin 2.2 L LDL Cholesterol Direct PTH Intact Salicylates Acetaminophen Crossmatch See Detail 03/09/19 03/09/19 03/09/19 10:48 12:28 13:53 RBC 2.85 L Hgb 7.7 L Hct 24.2 L MCH 27 L MCHC RDW 18.7 H Lymph % (Auto) Lamb % (Auto) Eos % (Auto) Lymph # Eos # Seg Neutrophils % PT INR D-Dimer POC ABG pH POC ABG pCO2 POC ABG pO2 ABG HCO3 30.5 H ABG Base Excess 5.6 H ABG Hemoglobin 8.1 L Oxyhemoglobin 93.8 L Sodium Potassium Chloride Carbon Dioxide BUN Creatinine Glucose POC Glucose 114 H Phosphorus ALT Alkaline Phosphatase Total Creatine Kinase CK-MB (CK-2) Rel Index Troponin T Albumin LDL Cholesterol Direct PTH Intact Salicylates Acetaminophen Crossmatch 03/09/19 03/09/19 03/10/19 17:58 23:53 12:01 RBC Hgb Hct MCH MCHC RDW Lymph % (Auto) Lamb % (Auto) Eos % (Auto) Lymph # Eos # Seg Neutrophils % PT INR D-Dimer POC ABG pH POC ABG pCO2 POC ABG pO2 ABG HCO3 ABG Base Excess ABG Hemoglobin Oxyhemoglobin Sodium Potassium Chloride Carbon Dioxide BUN Creatinine Glucose POC Glucose 108 H 128 H 144 H Phosphorus ALT Alkaline Phosphatase Total Creatine Kinase CK-MB (CK-2) Rel Index Troponin T Albumin LDL Cholesterol Direct PTH Intact Salicylates Acetaminophen Crossmatch
--- NOTE | 2019-03-10 12:52 | Progress Note ---
Assessment and Plan Assessment and plan: Patient is a 63-year-old -English man from [facility] with a plethora of co-morbidities including blindness, CVA, CHF, PPM/ICD, loop recorder since 2012 that is MRI compatible, IDDM type 2, sepsis left foot ulcer, afib, ESRD with complications on HD TTS, hypertension, AOCD and GERD who presented to the ED with hypotensive after intubation in the emergency room. Still intubated, diagnosed with fluid overload, pleural effusion. Patient has had recurrent admission in the hospital for similar reason and was recently discharged from the hospital following treatment of Severe Sepsis due to Necrotizing Unstagable sacral decubitus ulcer with ostemomylitis, expected to complete abx on discharge till 02/16/19. Trach and peg done and LTAC transfer with anticipated longer weaning process an d wound care management. HR control improved with change in BB. Acute respiratory failure on mechanical ventilator >96 hrs - Currently on trach placed on 03/03 off vent since 03/09, cont oxygen supplement, improving acute on chronc systolic CHF/ Acute pulmonary edema, improved with UF Dilated CMP, EF 35-40% Continue diuresis Acute metabolic encephalopathy, resolved, has baseline Dementia ESRD on hemodialysis nephrology following Bilateral pleural effusions improved with HD Permanent atrial fibrillation and flutter and hypercoaguable state Not on anticoagulation because of anemia thrombocytopenia rate control meds optimizeds Diabetes mellitus type 2 SSI NSTEMI type 2 Cardiology following Schizophrenia Legally blind supportive care hypertension Monitor BP Hypokalemia replaced Pulmonary hypertension Dysphagia s/p PEG tube Sacral decub ulcer Wound Nurse consulted Severe malnutrition /hypoalbuminemia with FTT: 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, 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 -Pt is s/p x1 DDVAP RUL atelectasis, probably mucous plugging DVT prophylaxis Lovenox Full code status poor prognosis DIspo; to ltach tomorrow The high probability of a clinically significant, sudden or life threatening deterioration of the [pulmonary, neuro, renal] system(s) required my full and direct attention, intervention and personal management. The aggregate critical care time was [35] minutes. This time is in addition to time spent performing reported procedures but includes the following: [x] Data Review and interpretation [x] Patient assessment and monitoring of vital signs [] Documentation [x] Medication orders and management History Interval history: no fevers remains demented no vomiting, no agitation, no seizures Hospitalist Physical - Physical exam Narrative exam: Constitutional: no acute distress, opens eyes, says hello Eyes: non-icteric ENT: oropharynx moist Neck: supple Effort: normal Ascultation: Bilateral: other (coarse BS bilaterally) Percussion: Bilateral: not dull Cardiovascular: regular rate and rhythm (no mrg) Gastrointestinal: normoactive bowel sounds, soft, non-tender, non-distended, other (ostomy in place, brown stool) Extremities: no cyanosis, no edema, pink and warm Neurologic: other (mild weakness LUE, o/w nonfocal), demented Psychiatric: other (unable to assess) SKIN; Left 5th finger, stage 4 pressure ulcer,Left heel, deep tissue injury, Sacrum, stage 4 pressure ulcer POA - Constitutional Vitals: Temp Pulse Resp BP Pulse Ox 97.4 F L 104 H 38 H 167/75 95 03/10/19 12:00 03/10/19 12:15 03/10/19 12:15 03/10/19 12:15 03/10/19 12:15 General appearance: Present: no acute distress Results - Labs CBC & Chem 7: 03/31/19 10:26 03/31/19 10:26 Labs: Laboratory Last Values WBC 5.7 K/mm3 (4.5-11.0) 03/09/19 10:48 RBC 2.85 M/mm3 (3.65-5.03) L 03/09/19 10:48 Hgb 7.7 gm/dl (11.8-15.2) L 03/09/19 10:48 Hct 24.2 % (35.5-45.6) L 03/09/19 10:48 MCV 85 fl (84-94) 03/09/19 10:48 MCH 27 pg (28-32) L 03/09/19 10:48 MCHC 32 % (32-34) 03/09/19 10:48 RDW 18.7 % (13.2-15.2) H 03/09/19 10:48 Plt Count 319 K/mm3 (140-440) 03/09/19 10:48 Lymph % (Auto) 13.6 % (13.4-35.0) 03/08/19 16:00 [place] % (Auto) 5.8 % (0.0-7.3) 03/08/19 16:00 Eos % (Auto) 8.6 % (0.0-4.3) H 03/08/19 16:00 Baso % (Auto) 1.3 % (0.0-1.8) 03/08/19 16:00 Lymph # 0.8 K/mm3 (1.2-5.4) L 03/08/19 16:00 [place] # 0.4 K/mm3 (0.0-0.8) 03/08/19 16:00 Eos # 0.5 K/mm3 (0.0-0.4) H 03/08/19 16:00 Baso # 0.1 K/mm3 (0.0-0.1) 03/08/19 16:00 Seg Neutrophils % 70.7 % (40.0-70.0) H 03/08/19 16:00 Seg Neutrophils # 4.4 K/mm3 (1.8-7.7) 03/08/19 16:00 PT 16.3 Sec. (12.2-14.9) H 03/01/19 09:39 INR 1.35 (0.87-1.13) H 03/01/19 09:39 APTT 33.7 Sec. (24.2-36.6) 02/21/19 18:30 2987.82 ng/mlDDU (0-234) H 02/22/19 05:54 POC ABG pH 7.483 (7.35-7.45) H 02/27/19 04:35 ABG pH 7.435 pH Units (7.350-7.450) 03/09/19 13:53 POC ABG pCO2 37.5 (35-45) 02/27/19 04:35 ABG pCO2 46.5 mm Hg 03/09/19 13:53 POC ABG pO2 61 (80-105) L 02/27/19 04:35 ABG pO2 80.8 mm Hg (80.0-90.0) 03/09/19 13:53 POC ABG HCO3 28.1 (22-26 mml/L) 02/27/19 04:35 ABG HCO3 30.5 mmol/L (20.0-26.0) H 03/09/19 13:53 POC ABG Total CO2 29 (23-27mmol/L) 02/27/19 04:35 POC ABG O2 Sat 93 02/27/19 04:35 ABG O2 Saturation 96.5 % (95.0-99.0) 03/09/19 13:53 ABG O2 Content 10.8 (0.0-44) 03/09/19 13:53 POC ABG Base Excess 5 ((-2) - (+3)mmol/L) 02/27/19 04:35 ABG Base Excess 5.6 mmol/L (-2.0-3.0) H 03/09/19 13:53 ABG Hemoglobin 8.1 gm/dl (14.0-18.0) L 03/09/19 13:53 ABG Carboxyhemoglobin 2.4 % (0.0-5.0) 03/09/19 13:53 ABG Methemoglobin 0.4 % (0.0-1.5) 03/09/19 13:53 93.8 % (95.0-99.0) L 03/09/19 13:53 25 % 03/09/19 13:53 Sodium 138 mmol/L (137-145) 03/08/19 16:00 Potassium 5.4 mmol/L (3.6-5.0) H D 03/08/19 16:00 Chloride 98.2 mmol/L (98-107) 03/08/19 16:00 Carbon Dioxide 29 mmol/L (22-30) 03/08/19 16:00 16 mmol/L 03/08/19 16:00 BUN 47 mg/dL (9-20) H 03/08/19 16:00 2.6 mg/dL (0.8-1.5) H 03/08/19 16:00 Estimated GFR 30 ml/min 03/08/19 16:00 18 % 03/08/19 16:00 Glucose 88 mg/dL (75-100) 03/08/19 16:00 POC Glucose 144 (70-105) H 03/10/19 12:01 Lactic Acid 1.00 mmol/L (0.7-2.0) 02/21/19 20:58 Calcium 10.0 mg/dL (8.4-10.2) 03/08/19 16:00 Phosphorus 2.30 mg/dL (2.5-4.5) L 03/02/19 05:15 Magnesium 2.20 mg/dL (1.7-2.3) 03/02/19 05:15 0.20 mg/dL (0.1-1.2) 03/08/19 16:00 AST 10 units/L (5-40) 03/08/19 16:00 ALT < 5 units/L (7-56) L 03/08/19 16:00 123 units/L (35-129) 03/08/19 16:00 28.0 umol/L (25-60) 02/21/19 20:04 64 units/L (55-170) 02/22/19 03:42 CK-MB (CK-2) 3.7 ng/mL (0.0-4.0) 02/22/19 03:42 CK-MB (CK-2) Rel Index 5.7 (0-4) H 02/22/19 03:42 0.193 ng/mL (0.00-0.029) H* 02/22/19 03:42 6.4 g/dL (6.3-8.2) 03/08/19 16:00 2.2 g/dL (3.9-5) L 03/08/19 16:00 0.5 % 03/08/19 16:00 Triglycerides 51 mg/dL (2-149) 02/21/19 18:30 Cholesterol 82 mg/dL (50-199) 02/21/19 18:30 36 mg/dL (50-130) L 02/21/19 18:30 40 mg/dL (40-59) 02/21/19 18:30 2.05 % 02/21/19 18:30 TSH 2.760 mlU/mL (0.270-4.200) 02/21/19 20:04 PTH Intact 267.6 pg/mL (15-65) H 03/02/19 05:15 Salicylates < 0.3 mg/dL (2.8-20.0) L 02/21/19 20:04 Acetaminophen < 5.0 ug/mL (10.0-30.0) L 02/21/19 20:04 Hepatitis A IgM Ab Non-reactive (NonReactive) 02/23/19 11:20 Hep Bs Antigen Non-reactive (Negative) 02/23/19 11:20 Hep B Core IgM Ab Non-reactive (NonReactive) 02/23/19 11:20 Non-reactive (NonReactive) 02/23/19 11:20 Blood Type O POSITIVE 03/08/19 Unknown Antibody Screen Negative 03/08/19 Unknown Crossmatch See Detail 03/08/19 Unknown Active Medications - Current Medications Current Medications: Generic Name Dose Route Start Last Admin Trade Name Freq PRN Reason Stop Dose Admin Acetaminophen 650 mg 02/21/19 22:19 03/05/19 08:16 Tylenol PO 650 mg Q4H PRN Administration Pain MILD(1-3)/Fever >100.5/HILL Albuterol/Ipratropium 1 ampul 02/24/19 20:00 03/10/19 08:26 Duoneb *Not For Prn Use* IH 1 ampul TIDRT SANCHEZ Administration Lipase/Protease/Amylase 1 each 03/05/19 14:04 Pancrejewel Barrientos 10,500 Unit FEEDTUBE PRN PRN For Clogged Feeding Tube Dextrose 50 ml 02/21/19 22:22 03/03/19 17:37 D50w (25gm) Syringe IV 50 ml PRN PRN Administration Hypoglycemia Famotidine 20 mg 02/23/19 10:00 03/10/19 10:00 Pepcid PO 20 mg DAILY SANCHEZ Administration Heparin Sodium (Porcine) 5,000 unit 03/04/19 22:00 03/10/19 10:00 Heparin SUB-Q 5,000 unit Q12HR SANCHEZ Administration Hydrophilic Ointment 1 applic 02/21/19 18:24 03/05/19 08:16 Vaseline Lip Therapy TP 1 applic Q2HR PRN Administration Dry Lips Sodium Chloride 100 mls @ 999 mls/hr 02/26/19 09:00 Nacl 0.9% IV UMA PRN Hypotension Insulin Human Regular 0 units 02/26/19 12:00 03/10/19 12:00 Humulin R SUB-Q Not Given Q6HR [facility] Protocol Metoprolol Tartrate 2.5 mg 02/28/19 12:06 03/01/19 10:32 Lopressor IV 2.5 mg Q4HR PRN Administration Tachycardia Metoprolol Tartrate 25 mg 03/02/19 14:00 03/10/19 08:00 Lopressor PO 25 mg TID SANCHEZ Administration Multi-Ingred Cream/Lotion/Oil/Oint 1 applic 02/21/19 18:24 Artificial Tears Ophth Oint OU Q4HR PRN Dry Eye(s) Ondansetron HCl 4 mg 02/21/19 22:19 Zofran IV Q8H PRN Nausea And Vomiting Risperidone 1 mg 02/25/19 13:00 03/10/19 10:00 Risperdal PO 1 mg DAILY SANCHEZ Administration Sertraline HCl 100 mg 02/25/19 13:00 03/10/19 10:00 Zoloft PO 100 mg DAILY SANCHEZ Administration Simple Syrup 15 ml 03/05/19 14:04 Simple Syrup FEEDTUBE PRN PRN Hypoglycemia Simple Syrup 30 ml 03/05/19 14:04 Simple Syrup FEEDTUBE PRN PRN Hypoglycemia Sodium Bicarbonate 325 mg 03/05/19 14:04 Sodium Bicarbonate FEEDTUBE PRN PRN For Clogged Feeding Tube Sodium Chloride 10 ml 02/22/19 10:00 03/10/19 10:00 Sodium Chloride Flush Syringe 10 Ml IV 10 ml BID SANCHEZ Administration Sodium Chloride 10 ml 02/21/19 22:19 02/24/19 22:00 Sodium Chloride Flush Syringe 10 Ml IV 10 ml PRN PRN Administration LINE FLUSH Tramadol HCl 50 mg 03/05/19 10:08 03/08/19 16:54 Ultram PO 50 mg Q6H PRN Administration Pain, Moderate (4-6) Nutrition/Malnutrition Assess - Dietary Evaluation Nutrition/Malnutrition Findings: Nutrition Notes Start: 02/22/19 12:51 Freq: Status: Active Protocol: Document 03/05/19 13:59 RM (Rec: 03/05/19 14:02 RM [id number]) Nutrition Notes Initial or Follow up Reassessment Current Diagnosis Diabetes,Hypertension Other Pertinent Diagnosis Sacral PU, ESRD on HD (T/Thurs /Sat), Schizophrenia,Blind in L eye,S/P trach Current Diet NPO after midnight Labs/Tests Reviewed Pertinent Medications Reviewed Height 5 ft 10 in Weight 88.7 kg [place] Body Weight (kg) 75.45 BMI 28.0 Subjective/Other Information Trach placed yesterday. Observed Vital 1.2 infusing at goal rate. Per nurse pt is tolerating TF. Percent of energy/protein needs met: 100%/100% Burn Absent Trauma Absent #2 Nutrition Diagnosis Increased nutrient needs ( specify in comment below) Diagnosis Progress(for reassessment Continues documentation) #1 Nutrition Diagnosis Inadequate oral intake Diagnosis Progress(for reassessment Continues documentation) Is patient on ventilator? Yes Is Patient Ambulatory and/or Out of Bed No REE-([facility]-confined to bed) 2023.976 Kcal/Kg value to use for calculation 18 Approximate Energy Requirements Using 1597 kcal/Kg Calculation Used for Recommendations Kcal/kg Additional Notes Protein Needs: 106-177g (1.2- 2g/kg) Fluid Needs: 1 ml/kcal Nutrition Intervention Nutrition Support: Vital 1.2 at 70 ml/hr Water flush of 100 mls q 4 hrs Kcal 2,016 Protein (gm) 126 Fluid (mL) 1,362 Add Supplement/Snack (indicate name/kcal Abhilash BID /protein ) Provides kCal: 190 Provides Protein (gm) 5 Goal #1 TF tolerance Goal #2 Continue to meet at least 80% of calorie and protein needs via TF Anticipated Discharge Needs: Unable to determine at this time Follow-Up By: 03/13/19 Additional Comments Follow for TF tolerance
[2019-03-11] MEDS: METOPROLOL TARTRATE 25 MG TAB PO SCH ×3 (08:35→20:44)
[2019-03-11] MEDS: IPRATROPIUM/ALBUTEROL SULFATE 3 ML AMPUL.NEB IH SCH ×3 (08:37→20:36)
--- NOTE | 2019-03-11 09:54 | Progress Note ---
Assessment and Plan Assessment: * End stage renal disease (outpatient TTS schedule) * Acute hypoxic respiratory failure on mechanical ventilation * Atrial fibrillation * History of CVA * Anemia secondary to ESRD * Secondary hyperparathyroidism Plan * Continue HD MWF schedule for now while inpatient * UF as tolerated * AVG in use. Appreciate vascular assistance to remove Permacath * Empiric abx per ID/primary team * Nutrition per primary team * Dose medications for renal function * Epogen TID Overall prognosis remains poor; will continue to follow for ESRD needs Subjective Date of service: 03/11/19 Principal diagnosis: respiratory failure Interval history: no acute issues noted overnight. patient not able to verbalize any issues due to mental status. due for HD today Objective - Exam Narrative Exam: General appearance: chronically ill, intubated, frail EENT: normocephalic Neck: ETT in place Respiratory: coarse mechanical breath sounds bilaterally Cardiology: regular, S1S2, no edema Gastrointestinal: PEG and colostomy noted Integumentary: warm and dry Psychiatric: unable to assess - Vital Signs Vital signs: Vital Signs - 12hr 03/10/19 03/10/19 03/10/19 22:00 22:15 22:30 Temperature Pulse Rate 80 79 78 Pulse Rate [ Anterior Bilateral Throughout] Pulse Rate [ From Monitor] Respiratory 20 19 29 H Rate Respiratory Rate [Anterior Bilateral Throughout] Blood Pressure 131/64 131/64 131/64 O2 Sat by Pulse 99 99 100 Oximetry O2 Sat by Pulse Oximetry [ Assessment] 03/10/19 03/10/19 03/10/19 22:45 23:01 23:15 Temperature Pulse Rate 77 77 79 Pulse Rate [ Anterior Bilateral Throughout] Pulse Rate [ From Monitor] Respiratory 9 L 11 L 11 L Rate Respiratory Rate [Anterior Bilateral Throughout] Blood Pressure 131/64 145/63 145/63 O2 Sat by Pulse 98 99 98 Oximetry O2 Sat by Pulse Oximetry [ Assessment] 03/10/19 03/10/19 03/11/19 23:31 23:45 00:00 Temperature 97.1 F L Pulse Rate 79 79 79 Pulse Rate [ Anterior Bilateral Throughout] Pulse Rate [ 79 From Monitor] Respiratory 26 H 26 H 27 H Rate Respiratory Rate [Anterior Bilateral Throughout] Blood Pressure 145/63 145/63 145/76 O2 Sat by Pulse 99 99 95 Oximetry O2 Sat by Pulse Oximetry [ Assessment] 03/11/19 03/11/19 03/11/19 00:15 00:30 00:45 Temperature Pulse Rate 79 80 80 Pulse Rate [ Anterior Bilateral Throughout] Pulse Rate [ From Monitor] Respiratory 28 H 16 13 Rate Respiratory Rate [Anterior Bilateral Throughout] Blood Pressure 145/76 145/76 145/76 O2 Sat by Pulse 98 98 100 Oximetry O2 Sat by Pulse Oximetry [ Assessment] 03/11/19 03/11/19 03/11/19 01:00 01:15 01:31 Temperature Pulse Rate 80 79 80 Pulse Rate [ Anterior Bilateral Throughout] Pulse Rate [ From Monitor] Respiratory 15 14 22 Rate Respiratory Rate [Anterior Bilateral Throughout] Blood Pressure 141/68 141/68 141/68 O2 Sat by Pulse 99 100 100 Oximetry O2 Sat by Pulse Oximetry [ Assessment] 03/11/19 03/11/19 03/11/19 01:45 02:00 02:01 Temperature Pulse Rate 79 80 Pulse Rate [ Anterior Bilateral Throughout] Pulse Rate [ From Monitor] Respiratory 21 14 Rate Respiratory Rate [Anterior Bilateral Throughout] Blood Pressure 141/68 145/70 O2 Sat by Pulse 100 99 Oximetry O2 Sat by Pulse 100 Oximetry [ Assessment] 03/11/19 03/11/19 03/11/19 02:15 02:31 02:45 Temperature Pulse Rate 98 H 92 H 79 Pulse Rate [ Anterior Bilateral Throughout] Pulse Rate [ From Monitor] Respiratory 16 28 H 27 H Rate Respiratory Rate [Anterior Bilateral Throughout] Blood Pressure 145/70 145/70 145/70 O2 Sat by Pulse 97 96 97 Oximetry O2 Sat by Pulse Oximetry [ Assessment] 03/11/19 03/11/19 03/11/19 03:01 03:15 03:31 Temperature Pulse Rate 79 97 H 105 H Pulse Rate [ Anterior Bilateral Throughout] Pulse Rate [ From Monitor] Respiratory 20 28 H 25 H Rate Respiratory Rate [Anterior Bilateral Throughout] Blood Pressure 152/102 152/102 152/102 O2 Sat by Pulse 97 95 96 Oximetry O2 Sat by Pulse Oximetry [ Assessment] 03/11/19 03/11/19 03/11/19 03:45 04:00 04:03 Temperature 97.2 F L Pulse Rate 87 80 Pulse Rate [ Anterior Bilateral Throughout] Pulse Rate [ 85 From Monitor] Respiratory 16 26 H Rate Respiratory Rate [Anterior Bilateral Throughout] Blood Pressure 157/100 147/70 O2 Sat by Pulse 96 97 Oximetry O2 Sat by Pulse Oximetry [ Assessment] 0803/11/19 03/11/19 04:15 04:31 04:45 Temperature Pulse Rate 98 H 80 80 Pulse Rate [ Anterior Bilateral Throughout] Pulse Rate [ From Monitor] Respiratory 21 19 17 Rate Respiratory Rate [Anterior Bilateral Throughout] Blood Pressure 147/70 147/75 147/75 O2 Sat by Pulse 96 97 98 Oximetry O2 Sat by Pulse Oximetry [ Assessment] 03/11/19 03/11/19 03/11/19 05:01 05:15 05:31 Temperature Pulse Rate 107 H 101 H 106 H Pulse Rate [ Anterior Bilateral Throughout] Pulse Rate [ From Monitor] Respiratory 14 17 25 H Rate Respiratory Rate [Anterior Bilateral Throughout] Blood Pressure 159/129 159/129 159/129 O2 Sat by Pulse 97 96 96 Oximetry O2 Sat by Pulse Oximetry [ Assessment] 03/11/19 03/11/19 03/11/19 05:45 06:00 06:15 Temperature Pulse Rate 85 106 H 94 H Pulse Rate [ Anterior Bilateral Throughout] Pulse Rate [ From Monitor] Respiratory 27 H 29 H 19 Rate Respiratory Rate [Anterior Bilateral Throughout] Blood Pressure 159/129 167/85 167/85 O2 Sat by Pulse 95 97 98 Oximetry O2 Sat by Pulse Oximetry [ Assessment] 03/11/19 03/11/19 03/11/19 06:31 06:45 07:00 Temperature Pulse Rate 106 H 103 H 80 Pulse Rate [ Anterior Bilateral Throughout] Pulse Rate [ From Monitor] Respiratory 22 23 23 Rate Respiratory Rate [Anterior Bilateral Throughout] Blood Pressure 167/85 167/85 147/72 O2 Sat by Pulse 96 98 97 Oximetry O2 Sat by Pulse Oximetry [ Assessment] 03/11/19 03/11/19 03/11/19 07:15 07:31 07:45 Temperature Pulse Rate 80 79 82 Pulse Rate [ Anterior Bilateral Throughout] Pulse Rate [ From Monitor] Respiratory 22 22 23 Rate Respiratory Rate [Anterior Bilateral Throughout] Blood Pressure 147/72 147/72 147/72 O2 Sat by Pulse 98 98 98 Oximetry O2 Sat by Pulse Oximetry [ Assessment] 03/11/19 03/11/19 03/11/19 08:00 08:15 08:31 Temperature Pulse Rate 90 104 H 84 Pulse Rate [ Anterior Bilateral Throughout] Pulse Rate [ From Monitor] Respiratory 20 22 21 Rate Respiratory Rate [Anterior Bilateral Throughout] Blood Pressure 150/83 150/83 150/83 O2 Sat by Pulse 97 98 96 Oximetry O2 Sat by Pulse Oximetry [ Assessment] 03/11/19 03/11/19 03/11/19 08:37 08:58 08:59 Temperature Pulse Rate Pulse Rate [ 92 H Anterior Bilateral Throughout] Pulse Rate [ From Monitor] Respiratory Rate Respiratory 22 Rate [Anterior Bilateral Throughout] Blood Pressure O2 Sat by Pulse 96 Oximetry O2 Sat by Pulse 96 Oximetry [ Assessment] - Lab 03/09/19 10:48 03/08/19 16:00 Most recent lab results ABG pH 7.435 pH Units (7.350-7.450) 03/09/19 13:53 ABG pCO2 46.5 mm Hg 03/09/19 13:53 ABG pO2 80.8 mm Hg (80.0-90.0) 03/09/19 13:53 ABG HCO3 30.5 mmol/L (20.0-26.0) H 03/09/19 13:53 ABG O2 Saturation 96.5 % (95.0-99.0) 03/09/19 13:53 Calcium 10.0 mg/dL (8.4-10.2) 03/08/19 16:00 Phosphorus 2.30 mg/dL (2.5-4.5) L 03/02/19 05:15 Magnesium 2.20 mg/dL (1.7-2.3) 03/02/19 05:15 Medications & Allergies - Medications Allergies/Adverse Reactions: Allergies haloperidol [From Haldol] Adverse Reaction (Verified 03/13/18 12:10) Unknown haloperidol lactate [From Haldol] Adverse Reaction (Verified 03/13/18 12:10) Unknown Home Medications: Home Medications Medication Instructions Recorded Confirmed Last Taken Type risperiDONE [RisperDAL] 1 mg PO QAM 03/13/18 02/21/19 Unknown History Sertraline [Zoloft] 100 mg PO QDAY 08/26/18 02/21/19 Unknown History Polyethylene Glycol 3350 [Miralax 17 gm PO QDAY #30 packet 11/05/18 02/21/19 Unknown Rx 3350] Aspirin EC [Halfprin EC] 81 mg PO DAILY #30 11/19/18 02/21/19 Unknown Rx Docusate Sodium [Colace CAP] 100 mg PO BID #60 11/19/18 02/21/19 Unknown Rx Folic Acid [Folvite] 1 mg PO DAILY #30 tab 11/19/18 02/21/19 Unknown Rx Famotidine [Pepcid] 20 mg PO DAILY tablet 12/08/18 02/21/19 Unknown Rx Gabapentin [Neurontin] 100 mg PO QHS capsule 12/08/18 02/21/19 Unknown Rx Metoprolol [Lopressor TAB] 50 mg PO BID 30 Days tablet 12/08/18 02/21/19 Unknown Rx Sevelamer Carbonate [Renvela] 800 mg PO TIDWM tablet 12/08/18 02/21/19 Unknown Rx hydrALAZINE [Apresoline TAB] 100 mg PO Q8HR #120 tablet 12/08/18 02/21/19 Unknown Rx Acetaminophen [Acetaminophen TAB] 650 mg PO Q12H PRN 12/15/18 02/21/19 Unknown History Glucagon,Human Recombinant 1 mg IJ Q15MIN PRN 12/15/18 02/21/19 Unknown History [Glucagon Emergency Kit] Insulin Aspart [NovoLOG 100 See Protocol SQ QWEEK 12/15/18 02/21/19 Unknown History UNITS/ML VIAL] Active Medications: Generic Name Dose Route Start Last Admin Trade Name Freq PRN Reason Stop Dose Admin Acetaminophen 650 mg 02/21/19 22:19 03/05/19 08:16 Tylenol PO 650 mg Q4H PRN Administration Pain MILD(1-3)/Fever >100.5/HILL Albuterol/Ipratropium 1 ampul 02/24/19 20:00 03/11/19 08:37 Duoneb *Not For Prn Use* IH 1 ampul TIDRT SANCHEZ Administration Lipase/Protease/Amylase 1 each 03/05/19 14:04 Pancreazkaren Barrientos 10,500 Unit FEEDTUBE PRN PRN For Clogged Feeding Tube Dextrose 50 ml 02/21/19 22:22 03/03/19 17:37 D50w (25gm) Syringe IV 50 ml PRN PRN Administration Hypoglycemia Famotidine 20 mg 02/23/19 10:00 03/10/19 10:00 Pepcid PO 20 mg DAILY SANCHEZ Administration Heparin Sodium (Porcine) 5,000 unit 03/04/19 22:00 03/10/19 22:27 Heparin SUB-Q 5,000 unit Q12HR SANCHEZ Administration Hydrophilic Ointment 1 applic 02/21/19 18:24 03/05/19 08:16 Vaseline Lip Therapy TP 1 applic Q2HR PRN Administration Dry Lips Sodium Chloride 100 mls @ 999 mls/hr 02/26/19 09:00 Nacl 0.9% IV UMA PRN Hypotension Insulin Human Regular 0 units 02/26/19 12:00 03/10/19 18:00 Humulin R SUB-Q Not Given Q6HR [facility] Protocol Metoprolol Tartrate 2.5 mg 02/28/19 12:06 03/01/19 10:32 Lopressor IV 2.5 mg Q4HR PRN Administration Tachycardia Metoprolol Tartrate 25 mg 03/02/19 14:00 03/10/19 20:37 Lopressor PO 25 mg TID SANCHEZ Administration Multi-Ingred Cream/Lotion/Oil/Oint 1 applic 02/21/19 18:24 Artificial Tears Ophth Oint OU Q4HR PRN Dry Eye(s) Ondansetron HCl 4 mg 02/21/19 22:19 Zofran IV Q8H PRN Nausea And Vomiting Risperidone 1 mg 02/25/19 13:00 03/10/19 10:00 Risperdal PO 1 mg DAILY SANCHEZ Administration Sertraline HCl 100 mg 02/25/19 13:00 03/10/19 10:00 Zoloft PO 100 mg DAILY SANCHEZ Administration Simple Syrup 15 ml 03/05/19 14:04 Simple Syrup FEEDTUBE PRN PRN Hypoglycemia Simple Syrup 30 ml 03/05/19 14:04 Simple Syrup FEEDTUBE PRN PRN Hypoglycemia Sodium Bicarbonate 325 mg 03/05/19 14:04 Sodium Bicarbonate FEEDTUBE PRN PRN For Clogged Feeding Tube Sodium Chloride 10 ml 02/22/19 10:00 03/10/19 22:28 Sodium Chloride Flush Syringe 10 Ml IV 10 ml BID SANCHEZ Administration Sodium Chloride 10 ml 02/21/19 22:19 02/24/19 22:00 Sodium Chloride Flush Syringe 10 Ml IV 10 ml PRN PRN Administration LINE FLUSH Tramadol HCl 50 mg 03/05/19 10:08 03/08/19 16:54 Ultram PO 50 mg Q6H PRN Administration Pain, Moderate (4-6)
[2019-03-11] MEDS: risperiDONE 1 MG TAB PO SCH (10:08)
[2019-03-11] MEDS: HEPARIN 5,000 UNIT/1 ML VIAL SUB-Q SCH ×2 (10:08→21:45)
[2019-03-11] MEDS: SERTRALINE 100 MG TAB PO SCH (10:08)
[2019-03-11] MEDS: FAMOTIDINE 20 MG TAB PO SCH (10:08)
[2019-03-11] MEDS: INSULIN REGULAR, HUMAN 100 UNITS/1 ML SUB-Q SCH ×2 (12:10→18:31)
--- NOTE | 2019-03-11 12:40 | Progress Note ---
Assessment and Plan mp: 1. Acute encephalopathy, probably metabolic or toxic 2. A/C systolic CHF 3. Dilated CMP 4. Pulm HTN 5. ESRD 6. RUL atelectasis, probably mucous plugging 7. Acute respiratory failure, improving, off vent Rec: 1. Chest PT with vest, Duonebs; f/u CXR in AM and add back Mucomyst nebs/Mucinex if continued atelectasis 2. Daily PSV/SBT 3. Avoid sedatives; resumed psych meds 4. DVT and GI PPx 5. TFs per PEG 6. Colostomy care 7. HD per renal 8. Transferred to floor Subjective Date of service: 03/11/19 Principal diagnosis: respiratory failure Interval history: More awake and responsive on TPiece mild tachypnea noted no distress. No significant change. Objective Vital Signs - 12hr 03/11/19 03/11/19 03/11/19 00:45 01:00 01:15 Temperature Pulse Rate 80 80 79 Pulse Rate [ Anterior Bilateral Throughout] Pulse Rate [ From Monitor] Respiratory 13 15 14 Rate Respiratory Rate [Anterior Bilateral Throughout] Blood Pressure 145/76 141/68 141/68 O2 Sat by Pulse 100 99 100 Oximetry O2 Sat by Pulse Oximetry [ Assessment] 03/11/19 03/11/19 03/11/19 01:31 01:45 02:00 Temperature Pulse Rate 80 79 Pulse Rate [ Anterior Bilateral Throughout] Pulse Rate [ From Monitor] Respiratory 22 21 Rate Respiratory Rate [Anterior Bilateral Throughout] Blood Pressure 141/68 141/68 O2 Sat by Pulse 100 100 Oximetry O2 Sat by Pulse 100 Oximetry [ Assessment] 03/11/19 03/11/19 03/11/19 02:01 02:15 02:31 Temperature Pulse Rate 80 98 H 92 H Pulse Rate [ Anterior Bilateral Throughout] Pulse Rate [ From Monitor] Respiratory 14 16 28 H Rate Respiratory Rate [Anterior Bilateral Throughout] Blood Pressure 145/70 145/70 145/70 O2 Sat by Pulse 99 97 96 Oximetry O2 Sat by Pulse Oximetry [ Assessment] 03/11/19 03/11/19 03/11/19 02:45 03:01 03:15 Temperature Pulse Rate 79 79 97 H Pulse Rate [ Anterior Bilateral Throughout] Pulse Rate [ From Monitor] Respiratory 27 H 20 28 H Rate Respiratory Rate [Anterior Bilateral Throughout] Blood Pressure 145/70 152/102 152/102 O2 Sat by Pulse 97 97 95 Oximetry O2 Sat by Pulse Oximetry [ Assessment] 03/11/19 03/11/19 03/11/19 03:31 03:45 04:00 Temperature Pulse Rate 105 H 87 80 Pulse Rate [ Anterior Bilateral Throughout] Pulse Rate [ 85 From Monitor] Respiratory 25 H 16 26 H Rate Respiratory Rate [Anterior Bilateral Throughout] Blood Pressure 152/102 157/100 147/70 O2 Sat by Pulse 96 96 97 Oximetry O2 Sat by Pulse Oximetry [ Assessment] 03/11/19 03/11/19 03/11/19 04:03 04:15 04:31 Temperature 97.2 F L Pulse Rate 98 H 80 Pulse Rate [ Anterior Bilateral Throughout] Pulse Rate [ From Monitor] Respiratory 21 19 Rate Respiratory Rate [Anterior Bilateral Throughout] Blood Pressure 147/70 147/75 O2 Sat by Pulse 96 97 Oximetry O2 Sat by Pulse Oximetry [ Assessment] 03/11/19 03/11/19 03/11/19 04:45 05:01 05:15 Temperature Pulse Rate 80 107 H 101 H Pulse Rate [ Anterior Bilateral Throughout] Pulse Rate [ From Monitor] Respiratory 17 14 17 Rate Respiratory Rate [Anterior Bilateral Throughout] Blood Pressure 147/75 159/129 159/129 O2 Sat by Pulse 98 97 96 Oximetry O2 Sat by Pulse Oximetry [ Assessment] 03/11/19 03/11/19 03/11/19 05:31 05:45 06:00 Temperature Pulse Rate 106 H 85 106 H Pulse Rate [ Anterior Bilateral Throughout] Pulse Rate [ From Monitor] Respiratory 25 H 27 H 29 H Rate Respiratory Rate [Anterior Bilateral Throughout] Blood Pressure 159/129 159/129 167/85 O2 Sat by Pulse 96 95 97 Oximetry O2 Sat by Pulse Oximetry [ Assessment] 03/11/19 03/11/19 03/11/19 06:15 06:31 06:45 Temperature Pulse Rate 94 H 106 H 103 H Pulse Rate [ Anterior Bilateral Throughout] Pulse Rate [ From Monitor] Respiratory 19 22 23 Rate Respiratory Rate [Anterior Bilateral Throughout] Blood Pressure 167/85 167/85 167/85 O2 Sat by Pulse 98 96 98 Oximetry O2 Sat by Pulse Oximetry [ Assessment] 03/11/19 03/11/19 03/11/19 07:00 07:15 07:31 Temperature Pulse Rate 80 80 79 Pulse Rate [ Anterior Bilateral Throughout] Pulse Rate [ From Monitor] Respiratory 23 22 22 Rate Respiratory Rate [Anterior Bilateral Throughout] Blood Pressure 147/72 147/72 147/72 O2 Sat by Pulse 97 98 98 Oximetry O2 Sat by Pulse Oximetry [ Assessment] 03/11/19 03/11/19 03/11/19 07:45 08:00 08:15 Temperature 97.9 F Pulse Rate 82 74 104 H Pulse Rate [ Anterior Bilateral Throughout] Pulse Rate [ 98 H From Monitor] Respiratory 23 22 22 Rate Respiratory Rate [Anterior Bilateral Throughout] Blood Pressure 147/72 150/83 150/83 O2 Sat by Pulse 98 96 98 Oximetry O2 Sat by Pulse Oximetry [ Assessment] 03/11/19 03/11/19 03/11/19 08:31 08:35 08:37 Temperature Pulse Rate 84 99 H Pulse Rate [ 92 H Anterior Bilateral Throughout] Pulse Rate [ From Monitor] Respiratory 21 Rate Respiratory 22 Rate [Anterior Bilateral Throughout] Blood Pressure 150/83 150/83 O2 Sat by Pulse 96 Oximetry O2 Sat by Pulse Oximetry [ Assessment] 03/11/19 03/11/19 03/11/19 08:58 08:59 09:00 Temperature Pulse Rate 79 Pulse Rate [ Anterior Bilateral Throughout] Pulse Rate [ From Monitor] Respiratory 21 Rate Respiratory Rate [Anterior Bilateral Throughout] Blood Pressure 140/69 O2 Sat by Pulse 96 98 Oximetry O2 Sat by Pulse 96 Oximetry [ Assessment] 03/11/19 10:00 Temperature Pulse Rate 80 Pulse Rate [ Anterior Bilateral Throughout] Pulse Rate [ From Monitor] Respiratory 19 Rate Respiratory Rate [Anterior Bilateral Throughout] Blood Pressure 129/63 O2 Sat by Pulse 98 Oximetry O2 Sat by Pulse Oximetry [ Assessment] Constitutional: no acute distress, other (critically ill on vent sp trach) Eyes: non-icteric Effort: normal Ascultation: Bilateral: diminished breath sounds, other (coarse BS bilaterally) Percussion: Bilateral: not dull Cardiovascular: regular rate and rhythm (no mrg) Gastrointestinal: normoactive bowel sounds, soft, non-tender, non-distended Extremities: no edema, pink and warm Neurologic: other (mild weakness LUE, o/w nonfocal) Psychiatric: mood appropriate, affect normal CBC and BMP: 03/09/19 10:48 03/08/19 16:00 ABG, PT/INR, D-dimer: ABG POC ABG pH 7.483 (7.35-7.45) H 02/27/19 04:35 ABG pH 7.435 pH Units (7.350-7.450) 03/09/19 13:53 POC ABG pCO2 37.5 (35-45) 02/27/19 04:35 ABG pCO2 46.5 mm Hg 03/09/19 13:53 POC ABG pO2 61 (80-105) L 02/27/19 04:35 ABG pO2 80.8 mm Hg (80.0-90.0) 03/09/19 13:53 POC ABG HCO3 28.1 (22-26 mml/L) 02/27/19 04:35 POC ABG Total CO2 29 (23-27mmol/L) 02/27/19 04:35 POC ABG O2 Sat 93 02/27/19 04:35 ABG O2 Saturation 96.5 % (95.0-99.0) 03/09/19 13:53 PT/INR, D-dimer PT 16.3 Sec. (12.2-14.9) H 03/01/19 09:39 INR 1.35 (0.87-1.13) H 03/01/19 09:39 2987.82 ng/mlDDU (0-234) H 02/22/19 05:54 Abnormal lab findings: Abnormal Labs 02/21/19 02/21/19 02/21/19 18:30 18:30 18:30 RBC 3.26 L Hgb 8.8 L Hct 29.0 L MCH 27 L MCHC 30 L RDW 19.1 H Lymph % (Auto) 6.1 L Sampson % (Auto) Eos % (Auto) Lymph # 0.4 L Eos # Seg Neutrophils % 86.2 H PT INR D-Dimer POC ABG pH POC ABG pCO2 POC ABG pO2 ABG HCO3 ABG Base Excess ABG Hemoglobin Oxyhemoglobin Sodium 133 L Potassium 3.3 L Chloride 93.1 L Carbon Dioxide 33 H BUN Creatinine Glucose 161 H POC Glucose Phosphorus ALT Alkaline Phosphatase 136 H Total Creatine Kinase 37 L CK-MB (CK-2) Rel Index Troponin T 0.192 H* Albumin 2.4 L LDL Cholesterol Direct 36 L PTH Intact Salicylates Acetaminophen Crossmatch 02/21/19 02/21/19 02/21/19 18:42 20:04 20:04 RBC Hgb Hct MCH MCHC RDW Lymph % (Auto) Sampson % (Auto) Eos % (Auto) Lymph # Eos # Seg Neutrophils % PT INR D-Dimer POC ABG pH POC ABG pCO2 56.7 H POC ABG pO2 291 H ABG HCO3 ABG Base Excess ABG Hemoglobin Oxyhemoglobin Sodium Potassium Chloride Carbon Dioxide BUN Creatinine Glucose POC Glucose Phosphorus ALT Alkaline Phosphatase Total Creatine Kinase CK-MB (CK-2) Rel Index Troponin T Albumin LDL Cholesterol Direct PTH Intact Salicylates < 0.3 L Acetaminophen < 5.0 L Crossmatch 02/21/19 02/22/19 02/22/19 22:35 03:42 03:42 RBC 3.20 L Hgb 8.8 L Hct 27.6 L MCH MCHC RDW 18.9 H Lymph % (Auto) 7.4 L Sampson % (Auto) Eos % (Auto) Lymph # 0.7 L Eos # Seg Neutrophils % 84.7 H PT INR D-Dimer POC ABG pH POC ABG pCO2 POC ABG pO2 ABG HCO3 ABG Base Excess ABG Hemoglobin Oxyhemoglobin Sodium 134 L Potassium 2.6 L* D Chloride Carbon Dioxide BUN Creatinine Glucose POC Glucose Phosphorus ALT Alkaline Phosphatase Total Creatine Kinase CK-MB (CK-2) Rel Index 5.2 H Troponin T 0.202 H* Albumin LDL Cholesterol Direct PTH Intact Salicylates Acetaminophen Crossmatch 02/22/19 02/22/19 02/22/19 03:42 05:54 09:04 RBC Hgb Hct MCH MCHC RDW Lymph % (Auto) Sampson % (Auto) Eos % (Auto) Lymph # Eos # Seg Neutrophils % PT INR D-Dimer 2987.82 H POC ABG pH 7.451 H POC ABG pCO2 POC ABG pO2 ABG HCO3 ABG Base Excess ABG Hemoglobin Oxyhemoglobin Sodium Potassium Chloride Carbon Dioxide BUN Creatinine Glucose POC Glucose Phosphorus ALT Alkaline Phosphatase Total Creatine Kinase CK-MB (CK-2) Rel Index 5.7 H Troponin T 0.193 H* Albumin LDL Cholesterol Direct PTH Intact Salicylates Acetaminophen Crossmatch 02/22/19 02/22/19 02/23/19 10:36 23:56 00:52 RBC Hgb Hct MCH MCHC RDW Lymph % (Auto) Sampson % (Auto) Eos % (Auto) Lymph # Eos # Seg Neutrophils % PT INR D-Dimer POC ABG pH POC ABG pCO2 POC ABG pO2 ABG HCO3 ABG Base Excess ABG Hemoglobin Oxyhemoglobin Sodium Potassium 3.1 L Chloride Carbon Dioxide BUN Creatinine Glucose POC Glucose 58 L 111 H Phosphorus ALT Alkaline Phosphatase Total Creatine Kinase CK-MB (CK-2) Rel Index Troponin T Albumin LDL Cholesterol Direct PTH Intact Salicylates Acetaminophen Crossmatch 02/23/19 02/23/19 02/23/19 05:00 06:35 14:26 RBC Hgb Hct MCH MCHC RDW Lymph % (Auto) Sampson % (Auto) Eos % (Auto) Lymph # Eos # Seg Neutrophils % PT INR D-Dimer POC ABG pH POC ABG pCO2 POC ABG pO2 ABG HCO3 ABG Base Excess ABG Hemoglobin Oxyhemoglobin Sodium 135 L Potassium 3.1 L Chloride Carbon Dioxide BUN 21 H Creatinine 2.0 H Glucose 57 L POC Glucose 64 L 62 L Phosphorus ALT Alkaline Phosphatase Total Creatine Kinase CK-MB (CK-2) Rel Index Troponin T Albumin LDL Cholesterol Direct PTH Intact Salicylates Acetaminophen Crossmatch 02/24/19 02/24/19 02/24/19 02:11 04:12 04:55 RBC 2.84 L Hgb 7.8 L Hct 24.5 L MCH MCHC RDW 19.5 H Lymph % (Auto) Sampson % (Auto) Eos % (Auto) Lymph # Eos # Seg Neutrophils % PT INR D-Dimer POC ABG pH 7.511 H POC ABG pCO2 33.9 L POC ABG pO2 62 L ABG HCO3 ABG Base Excess ABG Hemoglobin Oxyhemoglobin Sodium Potassium Chloride Carbon Dioxide BUN Creatinine Glucose POC Glucose 69 L Phosphorus ALT Alkaline Phosphatase Total Creatine Kinase CK-MB (CK-2) Rel Index Troponin T Albumin LDL Cholesterol Direct PTH Intact Salicylates Acetaminophen Crossmatch 02/24/19 02/24/19 02/25/19 04:55 05:41 04:45 RBC Hgb Hct MCH MCHC RDW Lymph % (Auto) Sampson % (Auto) Eos % (Auto) Lymph # Eos # Seg Neutrophils % PT INR D-Dimer POC ABG pH 7.466 H POC ABG pCO2 POC ABG pO2 75 L ABG HCO3 ABG Base Excess ABG Hemoglobin Oxyhemoglobin Sodium Potassium Chloride Carbon Dioxide BUN Creatinine 1.8 H Glucose 73 L POC Glucose 127 H Phosphorus ALT Alkaline Phosphatase Total Creatine Kinase CK-MB (CK-2) Rel Index Troponin T Albumin LDL Cholesterol Direct PTH Intact Salicylates Acetaminophen Crossmatch 02/25/19 02/25/19 02/26/19 16:34 21:33 03:45 RBC 2.96 L Hgb 8.0 L Hct 25.8 L MCH 27 L MCHC 31 L RDW 20.0 H Lymph % (Auto) Sampson % (Auto) Eos % (Auto) Lymph # Eos # Seg Neutrophils % PT INR D-Dimer POC ABG pH POC ABG pCO2 POC ABG pO2 ABG HCO3 ABG Base Excess ABG Hemoglobin Oxyhemoglobin Sodium Potassium Chloride Carbon Dioxide BUN Creatinine Glucose POC Glucose 141 H 106 H Phosphorus ALT Alkaline Phosphatase Total Creatine Kinase CK-MB (CK-2) Rel Index Troponin T Albumin LDL Cholesterol Direct PTH Intact Salicylates Acetaminophen Crossmatch 02/26/19 02/26/19 02/26/19 03:45 04:13 07:53 RBC Hgb Hct MCH MCHC RDW Lymph % (Auto) Sampson % (Auto) Eos % (Auto) Lymph # Eos # Seg Neutrophils % PT INR D-Dimer POC ABG pH 7.470 H POC ABG pCO2 POC ABG pO2 ABG HCO3 ABG Base Excess ABG Hemoglobin Oxyhemoglobin Sodium Potassium Chloride Carbon Dioxide BUN Creatinine 1.8 H Glucose POC Glucose 110 H Phosphorus ALT Alkaline Phosphatase Total Creatine Kinase CK-MB (CK-2) Rel Index Troponin T Albumin LDL Cholesterol Direct PTH Intact Salicylates Acetaminophen Crossmatch 02/26/19 02/26/19 02/27/19 11:56 17:43 00:12 RBC Hgb Hct MCH MCHC RDW Lymph % (Auto) Sampson % (Auto) Eos % (Auto) Lymph # Eos # Seg Neutrophils % PT INR D-Dimer POC ABG pH POC ABG pCO2 POC ABG pO2 ABG HCO3 ABG Base Excess ABG Hemoglobin Oxyhemoglobin Sodium Potassium Chloride Carbon Dioxide BUN Creatinine Glucose POC Glucose 112 H 127 H 127 H Phosphorus ALT Alkaline Phosphatase Total Creatine Kinase CK-MB (CK-2) Rel Index Troponin T Albumin LDL Cholesterol Direct PTH Intact Salicylates Acetaminophen Crossmatch 02/27/19 02/27/19 02/27/19 04:35 13:15 18:02 RBC Hgb Hct MCH MCHC RDW Lymph % (Auto) Sampson % (Auto) Eos % (Auto) Lymph # Eos # Seg Neutrophils % PT INR D-Dimer POC ABG pH 7.483 H POC ABG pCO2 POC ABG pO2 61 L ABG HCO3 ABG Base Excess ABG Hemoglobin Oxyhemoglobin Sodium Potassium Chloride Carbon Dioxide BUN Creatinine Glucose POC Glucose 143 H 106 H Phosphorus ALT Alkaline Phosphatase Total Creatine Kinase CK-MB (CK-2) Rel Index Troponin T Albumin LDL Cholesterol Direct PTH Intact Salicylates Acetaminophen Crossmatch 02/28/19 02/28/19 02/28/19 05:50 11:59 17:52 RBC Hgb Hct MCH MCHC RDW Lymph % (Auto) Sampson % (Auto) Eos % (Auto) Lymph # Eos # Seg Neutrophils % PT INR D-Dimer POC ABG pH POC ABG pCO2 POC ABG pO2 ABG HCO3 ABG Base Excess ABG Hemoglobin Oxyhemoglobin Sodium Potassium Chloride Carbon Dioxide BUN Creatinine Glucose POC Glucose 134 H 128 H 142 H Phosphorus ALT Alkaline Phosphatase Total Creatine Kinase CK-MB (CK-2) Rel Index Troponin T Albumin LDL Cholesterol Direct PTH Intact Salicylates Acetaminophen Crossmatch 02/28/19 03/01/19 03/01/19 23:13 05:40 09:39 RBC Hgb Hct MCH MCHC RDW Lymph % (Auto) Sampson % (Auto) Eos % (Auto) Lymph # Eos # Seg Neutrophils % PT 16.3 H INR 1.35 H D-Dimer POC ABG pH POC ABG pCO2 POC ABG pO2 ABG HCO3 ABG Base Excess ABG Hemoglobin Oxyhemoglobin Sodium Potassium Chloride Carbon Dioxide BUN Creatinine Glucose POC Glucose 112 H 111 H Phosphorus ALT Alkaline Phosphatase Total Creatine Kinase CK-MB (CK-2) Rel Index Troponin T Albumin LDL Cholesterol Direct PTH Intact Salicylates Acetaminophen Crossmatch 03/01/19 03/01/19 03/01/19 11:56 13:54 17:59 RBC Hgb Hct MCH MCHC RDW Lymph % (Auto) Sampson % (Auto) Eos % (Auto) Lymph # Eos # Seg Neutrophils % PT INR D-Dimer POC ABG pH POC ABG pCO2 POC ABG pO2 ABG HCO3 ABG Base Excess ABG Hemoglobin Oxyhemoglobin Sodium Potassium Chloride Carbon Dioxide BUN 33 H Creatinine 2.8 H D Glucose 176 H POC Glucose 199 H 147 H Phosphorus ALT Alkaline Phosphatase Total Creatine Kinase CK-MB (CK-2) Rel Index Troponin T Albumin LDL Cholesterol Direct PTH Intact Salicylates Acetaminophen Crossmatch 03/02/19 03/02/19 03/02/19 05:15 05:15 05:15 RBC 2.73 L Hgb 7.4 L Hct 23.0 L MCH 27 L MCHC RDW 19.9 H Lymph % (Auto) Sampson % (Auto) 7.9 H Eos % (Auto) 7.6 H Lymph # 1.0 L Eos # 0.5 H Seg Neutrophils % PT INR D-Dimer POC ABG pH POC ABG pCO2 POC ABG pO2 ABG HCO3 ABG Base Excess ABG Hemoglobin Oxyhemoglobin Sodium Potassium Chloride Carbon Dioxide BUN 43 H Creatinine 3.2 H Glucose POC Glucose Phosphorus 2.30 L ALT Alkaline Phosphatase Total Creatine Kinase CK-MB (CK-2) Rel Index Troponin T Albumin LDL Cholesterol Direct PTH Intact 267.6 H Salicylates Acetaminophen Crossmatch 03/02/19 03/02/19 03/03/19 12:32 18:20 13:30 RBC Hgb Hct MCH MCHC RDW Lymph % (Auto) Sampson % (Auto) Eos % (Auto) Lymph # Eos # Seg Neutrophils % PT INR D-Dimer POC ABG pH POC ABG pCO2 POC ABG pO2 ABG HCO3 ABG Base Excess ABG Hemoglobin Oxyhemoglobin Sodium Potassium Chloride 97.3 L Carbon Dioxide BUN 26 H Creatinine 2.2 H Glucose 73 L POC Glucose 111 H 156 H Phosphorus ALT Alkaline Phosphatase Total Creatine Kinase CK-MB (CK-2) Rel Index Troponin T Albumin LDL Cholesterol Direct PTH Intact Salicylates Acetaminophen Crossmatch 03/04/19 03/04/19 03/04/19 00:02 05:37 05:40 RBC 2.63 L Hgb 7.2 L Hct 22.2 L MCH MCHC RDW 20.2 H Lymph % (Auto) 10.5 L Sampson % (Auto) Eos % (Auto) 4.6 H Lymph # 0.7 L Eos # Seg Neutrophils % 76.9 H PT INR D-Dimer POC ABG pH POC ABG pCO2 POC ABG pO2 ABG HCO3 ABG Base Excess ABG Hemoglobin Oxyhemoglobin Sodium Potassium Chloride Carbon Dioxide BUN Creatinine Glucose POC Glucose 136 H 123 H Phosphorus ALT Alkaline Phosphatase Total Creatine Kinase CK-MB (CK-2) Rel Index Troponin T Albumin LDL Cholesterol Direct PTH Intact Salicylates Acetaminophen Crossmatch 03/04/19 03/04/19 03/04/19 05:40 11:39 23:20 RBC Hgb Hct MCH MCHC RDW Lymph % (Auto) Sampson % (Auto) Eos % (Auto) Lymph # Eos # Seg Neutrophils % PT INR D-Dimer POC ABG pH POC ABG pCO2 POC ABG pO2 ABG HCO3 ABG Base Excess ABG Hemoglobin Oxyhemoglobin Sodium Potassium Chloride Carbon Dioxide BUN 34 H Creatinine 2.7 H Glucose 114 H POC Glucose 175 H 151 H Phosphorus ALT Alkaline Phosphatase Total Creatine Kinase CK-MB (CK-2) Rel Index Troponin T Albumin LDL Cholesterol Direct PTH Intact Salicylates Acetaminophen Crossmatch 03/05/19 03/05/19 03/05/19 05:37 12:08 17:11 RBC Hgb Hct MCH MCHC RDW Lymph % (Auto) Sampson % (Auto) Eos % (Auto) Lymph # Eos # Seg Neutrophils % PT INR D-Dimer POC ABG pH POC ABG pCO2 POC ABG pO2 ABG HCO3 ABG Base Excess ABG Hemoglobin Oxyhemoglobin Sodium Potassium Chloride Carbon Dioxide BUN Creatinine Glucose POC Glucose 134 H 135 H 135 H Phosphorus ALT Alkaline Phosphatase Total Creatine Kinase CK-MB (CK-2) Rel Index Troponin T Albumin LDL Cholesterol Direct PTH Intact Salicylates Acetaminophen Crossmatch 03/06/19 03/06/19 03/06/19 00:16 13:05 18:09 RBC Hgb Hct MCH MCHC RDW Lymph % (Auto) Sampson % (Auto) Eos % (Auto) Lymph # Eos # Seg Neutrophils % PT INR D-Dimer POC ABG pH POC ABG pCO2 POC ABG pO2 ABG HCO3 ABG Base Excess ABG Hemoglobin Oxyhemoglobin Sodium Potassium Chloride Carbon Dioxide BUN Creatinine Glucose POC Glucose 117 H 113 H 131 H Phosphorus ALT Alkaline Phosphatase Total Creatine Kinase CK-MB (CK-2) Rel Index Troponin T Albumin LDL Cholesterol Direct PTH Intact Salicylates Acetaminophen Crossmatch 03/07/19 03/08/19 03/08/19 05:25 05:33 16:00 RBC 2.44 L Hgb 6.6 L Hct 20.8 L MCH 27 L MCHC RDW 19.2 H Lymph % (Auto) Sampson % (Auto) Eos % (Auto) 8.6 H Lymph # 0.8 L Eos # 0.5 H Seg Neutrophils % 70.7 H PT INR D-Dimer POC ABG pH POC ABG pCO2 POC ABG pO2 ABG HCO3 ABG Base Excess ABG Hemoglobin Oxyhemoglobin Sodium Potassium Chloride Carbon Dioxide BUN Creatinine Glucose POC Glucose 106 H 108 H Phosphorus ALT Alkaline Phosphatase Total Creatine Kinase CK-MB (CK-2) Rel Index Troponin T Albumin LDL Cholesterol Direct PTH Intact Salicylates Acetaminophen Crossmatch 03/08/19 03/08/19 03/08/19 16:00 18:38 Unknown RBC Hgb Hct MCH MCHC RDW Lymph % (Auto) Sampson % (Auto) Eos % (Auto) Lymph # Eos # Seg Neutrophils % PT INR D-Dimer POC ABG pH POC ABG pCO2 POC ABG pO2 ABG HCO3 ABG Base Excess ABG Hemoglobin Oxyhemoglobin Sodium Potassium 5.4 H D Chloride Carbon Dioxide BUN 47 H Creatinine 2.6 H Glucose POC Glucose 123 H Phosphorus ALT < 5 L Alkaline Phosphatase Total Creatine Kinase CK-MB (CK-2) Rel Index Troponin T Albumin 2.2 L LDL Cholesterol Direct PTH Intact Salicylates Acetaminophen Crossmatch See Detail 03/09/19 03/09/19 03/09/19 10:48 12:28 13:53 RBC 2.85 L Hgb 7.7 L Hct 24.2 L MCH 27 L MCHC RDW 18.7 H Lymph % (Auto) Sampson % (Auto) Eos % (Auto) Lymph # Eos # Seg Neutrophils % PT INR D-Dimer POC ABG pH POC ABG pCO2 POC ABG pO2 ABG HCO3 30.5 H ABG Base Excess 5.6 H ABG Hemoglobin 8.1 L Oxyhemoglobin 93.8 L Sodium Potassium Chloride Carbon Dioxide BUN Creatinine Glucose POC Glucose 114 H Phosphorus ALT Alkaline Phosphatase Total Creatine Kinase CK-MB (CK-2) Rel Index Troponin T Albumin LDL Cholesterol Direct PTH Intact Salicylates Acetaminophen Crossmatch 03/09/19 03/09/19 03/10/19 17:58 23:53 12:01 RBC Hgb Hct MCH MCHC RDW Lymph % (Auto) Sampson % (Auto) Eos % (Auto) Lymph # Eos # Seg Neutrophils % PT INR D-Dimer POC ABG pH POC ABG pCO2 POC ABG pO2 ABG HCO3 ABG Base Excess ABG Hemoglobin Oxyhemoglobin Sodium Potassium Chloride Carbon Dioxide BUN Creatinine Glucose POC Glucose 108 H 128 H 144 H Phosphorus ALT Alkaline Phosphatase Total Creatine Kinase CK-MB (CK-2) Rel Index Troponin T Albumin LDL Cholesterol Direct PTH Intact Salicylates Acetaminophen Crossmatch 03/10/19 03/11/19 03/11/19 16:50 00:24 05:02 RBC Hgb Hct MCH MCHC RDW Lymph % (Auto) Sampson % (Auto) Eos % (Auto) Lymph # Eos # Seg Neutrophils % PT INR D-Dimer POC ABG pH POC ABG pCO2 POC ABG pO2 ABG HCO3 ABG Base Excess ABG Hemoglobin Oxyhemoglobin Sodium Potassium Chloride Carbon Dioxide BUN Creatinine Glucose POC Glucose 147 H 123 H 120 H Phosphorus ALT Alkaline Phosphatase Total Creatine Kinase CK-MB (CK-2) Rel Index Troponin T Albumin LDL Cholesterol Direct PTH Intact Salicylates Acetaminophen Crossmatch 03/11/19 11:56 RBC Hgb Hct MCH MCHC RDW Lymph % (Auto) Sampson % (Auto) Eos % (Auto) Lymph # Eos # Seg Neutrophils % PT INR D-Dimer POC ABG pH POC ABG pCO2 POC ABG pO2 ABG HCO3 ABG Base Excess ABG Hemoglobin Oxyhemoglobin Sodium Potassium Chloride Carbon Dioxide BUN Creatinine Glucose POC Glucose 123 H Phosphorus ALT Alkaline Phosphatase Total Creatine Kinase CK-MB (CK-2) Rel Index Troponin T Albumin LDL Cholesterol Direct PTH Intact Salicylates Acetaminophen Crossmatch
[2019-03-11] MEDS ORDERED: SODIUM CHLORIDE 0.9% 100 ML IV PRN (15:28)
--- NOTE | 2019-03-11 15:38 | Progress Note ---
Assessment and Plan Trach and peg done and LTAC transfer with anticipated longer weaning process and wound care management. HR control improved with change in BB. Acute respiratory failure on mechanical ventilator >96 hrs - Currently on trach placed on 03/03 Pulm consult appreciated weaning trial VAP BUNDLE ASPIRATION BUNDLE Acute pulmonary edema, fluid overload on CXR repeat xray intermittently Dialysis Dilated CMP Continue diuresis Acute encephalopathy, probably metabolic or toxic Continues on Mechanical ventilator. ESRD on hemodialysis nephrology following Vascular eval. done re: LUE AV graft, see note Bilateral pleural effusions Anticipate improvement with Permanent atrial fibrillation and flutter Not on anticoagulation because of anemia thrombocytopenia Change noted to BB agent to IV. 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 -Pt is s/p x1 DDVAP RUL atelectasis, probably mucous plugging DVT prophylaxis Lovenox Full code status poor prognosis The high probability of a clinically significant, sudden or life threatening deterioration of the [pulmonary, neuro, renal] system(s) required my full and direct attention, intervention and personal management. The aggregate critical care time was [35] minutes. This time is in addition to time spent performing reported procedures but includes the following: [x] Data Review and interpretation [x] Patient assessment and monitoring of vital signs [] Documentation [x] Medication orders and management Subjective Date of service: 03/11/19 Principal diagnosis: respiratory failure Interval history: 63-year-old -[place] man from [facility] with a plethora of co- morbidities including blindness, CVA, CHF, PPM/ICD, loop recorder since 2012 that is MRI compatible, IDDM type 2, sepsis left foot ulcer, afib, ESRD with complications on HD TTS, hypertension, AOCD and GERD who presented to the ED with hypotensive after intubation in the emergency room. Still intubated, diagnosed with fluid overload, pleural effusion. Patient has had recurrent admission in the hospital for similar reason and was recently discharged from the hospital following treatment of Severe Sepsis due to Necrotizing Unstagable sacral decubitus ulcer with ostemomylitis. Objective - Exam Narrative Exam: Patient intubated - Constitutional Vitals: Vital Signs - 12hr 03/11/19 03/11/19 03/11/19 03:45 04:00 04:03 Temperature 97.2 F L Pulse Rate 87 80 Pulse Rate [ Anterior Bilateral Throughout] Pulse Rate [ 85 From Monitor] Respiratory 16 26 H Rate Respiratory Rate [Anterior Bilateral Throughout] Blood Pressure 157/100 147/70 O2 Sat by Pulse 96 97 Oximetry O2 Sat by Pulse Oximetry [ Anterior Bilateral Throughout] O2 Sat by Pulse Oximetry [ Assessment] 03/11/19 03/11/19 03/11/19 04:15 04:31 04:45 Temperature Pulse Rate 98 H 80 80 Pulse Rate [ Anterior Bilateral Throughout] Pulse Rate [ From Monitor] Respiratory 21 19 17 Rate Respiratory Rate [Anterior Bilateral Throughout] Blood Pressure 147/70 147/75 147/75 O2 Sat by Pulse 96 97 98 Oximetry O2 Sat by Pulse Oximetry [ Anterior Bilateral Throughout] O2 Sat by Pulse Oximetry [ Assessment] 03/11/19 03/11/19 03/11/19 05:01 05:15 05:31 Temperature Pulse Rate 107 H 101 H 106 H Pulse Rate [ Anterior Bilateral Throughout] Pulse Rate [ From Monitor] Respiratory 14 17 25 H Rate Respiratory Rate [Anterior Bilateral Throughout] Blood Pressure 159/129 159/129 159/129 O2 Sat by Pulse 97 96 96 Oximetry O2 Sat by Pulse Oximetry [ Anterior Bilateral Throughout] O2 Sat by Pulse Oximetry [ Assessment] 03/11/19 03/11/19 03/11/19 05:45 06:00 06:15 Temperature Pulse Rate 85 106 H 94 H Pulse Rate [ Anterior Bilateral Throughout] Pulse Rate [ From Monitor] Respiratory 27 H 29 H 19 Rate Respiratory Rate [Anterior Bilateral Throughout] Blood Pressure 159/129 167/85 167/85 O2 Sat by Pulse 95 97 98 Oximetry O2 Sat by Pulse Oximetry [ Anterior Bilateral Throughout] O2 Sat by Pulse Oximetry [ Assessment] 03/11/19 03/11/19 03/11/19 06:31 06:45 07:00 Temperature Pulse Rate 106 H 103 H 80 Pulse Rate [ Anterior Bilateral Throughout] Pulse Rate [ From Monitor] Respiratory 22 23 23 Rate Respiratory Rate [Anterior Bilateral Throughout] Blood Pressure 167/85 167/85 147/72 O2 Sat by Pulse 96 98 97 Oximetry O2 Sat by Pulse Oximetry [ Anterior Bilateral Throughout] O2 Sat by Pulse Oximetry [ Assessment] 03/11/19 03/11/19 03/11/19 07:15 07:31 07:45 Temperature Pulse Rate 80 79 82 Pulse Rate [ Anterior Bilateral Throughout] Pulse Rate [ From Monitor] Respiratory 22 22 23 Rate Respiratory Rate [Anterior Bilateral Throughout] Blood Pressure 147/72 147/72 147/72 O2 Sat by Pulse 98 98 98 Oximetry O2 Sat by Pulse Oximetry [ Anterior Bilateral Throughout] O2 Sat by Pulse Oximetry [ Assessment] 03/11/19 03/11/19 03/11/19 08:00 08:15 08:31 Temperature 97.9 F Pulse Rate 74 104 H 84 Pulse Rate [ Anterior Bilateral Throughout] Pulse Rate [ 98 H From Monitor] Respiratory 22 22 21 Rate Respiratory Rate [Anterior Bilateral Throughout] Blood Pressure 150/83 150/83 150/83 O2 Sat by Pulse 96 98 96 Oximetry O2 Sat by Pulse Oximetry [ Anterior Bilateral Throughout] O2 Sat by Pulse Oximetry [ Assessment] 03/11/19 03/11/19 03/11/19 08:35 08:37 08:58 Temperature Pulse Rate 99 H Pulse Rate [ 92 H Anterior Bilateral Throughout] Pulse Rate [ From Monitor] Respiratory Rate Respiratory 22 Rate [Anterior Bilateral Throughout] Blood Pressure 150/83 O2 Sat by Pulse 96 Oximetry O2 Sat by Pulse Oximetry [ Anterior Bilateral Throughout] O2 Sat by Pulse Oximetry [ Assessment] 03/11/19 03/11/19 03/11/19 08:59 09:00 10:00 Temperature Pulse Rate 79 80 Pulse Rate [ Anterior Bilateral Throughout] Pulse Rate [ From Monitor] Respiratory 21 19 Rate Respiratory Rate [Anterior Bilateral Throughout] Blood Pressure 140/69 129/63 O2 Sat by Pulse 98 98 Oximetry O2 Sat by Pulse Oximetry [ Anterior Bilateral Throughout] O2 Sat by Pulse 96 Oximetry [ Assessment] 03/11/19 03/11/19 03/11/19 11:01 12:00 12:15 Temperature 98.4 F 98.4 F Pulse Rate 76 79 89 Pulse Rate [ Anterior Bilateral Throughout] Pulse Rate [ 81 From Monitor] Respiratory 15 13 20 Rate Respiratory Rate [Anterior Bilateral Throughout] Blood Pressure 140/77 138/70 136/63 O2 Sat by Pulse 97 97 Oximetry O2 Sat by Pulse 98 Oximetry [ Anterior Bilateral Throughout] O2 Sat by Pulse Oximetry [ Assessment] 03/11/19 03/11/19 03/11/19 12:30 12:45 13:00 Temperature Pulse Rate 89 80 80 Pulse Rate [ Anterior Bilateral Throughout] Pulse Rate [ From Monitor] Respiratory 20 Rate Respiratory Rate [Anterior Bilateral Throughout] Blood Pressure 136/63 123/67 127/67 O2 Sat by Pulse 99 Oximetry O2 Sat by Pulse Oximetry [ Anterior Bilateral Throughout] O2 Sat by Pulse Oximetry [ Assessment] 03/11/19 03/11/19 03/11/19 13:16 13:30 13:45 Temperature Pulse Rate 80 80 80 Pulse Rate [ Anterior Bilateral Throughout] Pulse Rate [ From Monitor] Respiratory Rate Respiratory Rate [Anterior Bilateral Throughout] Blood Pressure 135/68 154/75 147/60 O2 Sat by Pulse Oximetry O2 Sat by Pulse Oximetry [ Anterior Bilateral Throughout] O2 Sat by Pulse Oximetry [ Assessment] 03/11/19 03/11/19 03/11/19 14:00 14:15 14:30 Temperature Pulse Rate 81 80 81 Pulse Rate [ Anterior Bilateral Throughout] Pulse Rate [ From Monitor] Respiratory Rate Respiratory Rate [Anterior Bilateral Throughout] Blood Pressure 141/84 145/54 113/72 O2 Sat by Pulse Oximetry O2 Sat by Pulse Oximetry [ Anterior Bilateral Throughout] O2 Sat by Pulse Oximetry [ Assessment] 03/11/19 03/11/19 03/11/19 14:45 15:00 15:15 Temperature Pulse Rate 81 82 81 Pulse Rate [ Anterior Bilateral Throughout] Pulse Rate [ From Monitor] Respiratory Rate Respiratory Rate [Anterior Bilateral Throughout] Blood Pressure 147/67 153/74 151/74 O2 Sat by Pulse Oximetry O2 Sat by Pulse Oximetry [ Anterior Bilateral Throughout] O2 Sat by Pulse Oximetry [ Assessment] General appearance: Present: mild distress, well-nourished - EENT Eyes: PERRL, EOM intact ENT: hearing intact, clear oral mucosa Ears: bilateral: normal - Neck Neck: supple, normal ROM - Respiratory Respiratory effort: normal Respiratory: bilateral: CTA - Breasts Breasts: normal - Cardiovascular Heart rate: 88 Rhythm: regular Heart Sounds: Present: S1 & S2. Absent: gallop, rub Extremities: pulses intact, No edema, normal color, Full ROM, abnormal (Sacral decub ulcer and foot ulcer) - Gastrointestinal General gastrointestinal: Present: soft, non-tender, non-distended, normal bowel sounds - Genitourinary Male genitourinary: normal - Integumentary Integumentary: clear, warm, dry - Musculoskeletal Musculoskeletal: generalized weakness - Neurologic Neurologic: moves all extremities - Psychiatric Psychiatric: other (Intubated) - Labs CBC & Chem 7: 03/09/19 10:48 03/11/19 12:20 Labs: Abnormal lab results 03/10/19 03/11/19 03/11/19 Range/Units 16:50 00:24 05:02 Potassium (3.6-5.0) mmol/L POC Glucose 147 H 123 H 120 H (70-105) 03/11/19 03/11/19 Range/Units 11:56 12:20 Potassium 5.2 H (3.6-5.0) mmol/L POC Glucose 123 H (70-105)
[2019-03-12] MEDS: INSULIN REGULAR, HUMAN 100 UNITS/1 ML SUB-Q SCH ×4 (00:20→18:05)
--- NOTE | 2019-03-12 03:32 | XRay Report ---
CHEST 1 VIEW 3:01 AM INDICATION / CLINICAL INFORMATION: Pneumonia. COMPARISON: 03/08/2019. FINDINGS: SUPPORT DEVICES: The right jugular CVL has been removed. The positions of the tracheostomy tube and l eft jugular CVL have not changed. HEART / MEDIASTINUM: Unchanged. LUNGS / PLEURA: There is moderate diffuse bilateral pleuroparenchymal disease, more prominent in the lower lung zones, and significantly increased. No pneumothorax. ADDITIONAL FINDINGS: No significant additional findings. IMPRESSION: Increasing congestive heart failure. Signer Name: Kwaku Carroll MD Signed: 03/12/2019 3:28 AM Workstation Name: [id number]
[2019-03-12] MEDS: IPRATROPIUM/ALBUTEROL SULFATE 3 ML AMPUL.NEB IH SCH ×3 (07:50→20:29)
--- NOTE | 2019-03-12 08:27 | Progress Note ---
Assessment and Plan Trach and peg done and LTAC transfer with anticipated longer weaning process and wound care management. HR control improved with change in BB. Acute respiratory failure on mechanical ventilator >96 hrs - Currently on trach placed on 03/03 Pulm consult appreciated weaning trial VAP BUNDLE ASPIRATION BUNDLE Acute pulmonary edema, fluid overload on CXR repeat xray intermittently Dialysis Dilated CMP Continue diuresis Acute encephalopathy, probably metabolic or toxic Continues on Mechanical ventilator. ESRD on hemodialysis nephrology following Vascular eval. done re: LUE AV graft, see note Bilateral pleural effusions Anticipate improvement with Permanent atrial fibrillation and flutter Not on anticoagulation because of anemia thrombocytopenia Change noted to BB agent to IV. 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 -Pt is s/p x1 DDVAP RUL atelectasis, probably mucous plugging DVT prophylaxis Lovenox Full code status poor prognosis Awaiting LTAC placement The high probability of a clinically significant, sudden or life threatening deterioration of the [pulmonary, neuro, renal] system(s) required my full and direct attention, intervention and personal management. The aggregate critical care time was [35] minutes. This time is in addition to time spent performing reported procedures but includes the following: [x] Data Review and interpretation [x] Patient assessment and monitoring of vital signs [] Documentation [x] Medication orders and management Subjective Date of service: 03/12/19 Principal diagnosis: respiratory failure Interval history: 63-year-old -[place] man from [facility] with a plethora of co- morbidities including blindness, CVA, CHF, PPM/ICD, loop recorder since 2012 that is MRI compatible, IDDM type 2, sepsis left foot ulcer, afib, ESRD with complications on HD TTS, hypertension, AOCD and GERD who presented to the ED with hypotensive after intubation in the emergency room. Still intubated, diagnosed with fluid overload, pleural effusion. Patient has had recurrent admission in the hospital for similar reason and was recently discharged from the hospital following treatment of Severe Sepsis due to Necrotizing Unstagable sacral decubitus ulcer with ostemomylitis. Objective - Exam Narrative Exam: Patient intubated and Trach status - Constitutional Vitals: Vital Signs - 12hr 03/11/19 03/11/19 03/11/19 20:44 20:51 21:01 Temperature Pulse Rate 79 79 Pulse Rate [ 85 Anterior Bilateral Throughout] Pulse Rate [ From Monitor] Respiratory 25 H Rate Respiratory 18 Rate [Anterior Bilateral Throughout] Blood Pressure 133/61 139/65 O2 Sat by Pulse 99 Oximetry O2 Sat by Pulse Oximetry [ Assessment] 03/11/19 03/11/19 03/12/19 22:00 23:00 00:00 Temperature 97.7 F Pulse Rate 80 80 80 Pulse Rate [ Anterior Bilateral Throughout] Pulse Rate [ 80 From Monitor] Respiratory 14 15 19 Rate Respiratory Rate [Anterior Bilateral Throughout] Blood Pressure 139/69 144/80 141/75 O2 Sat by Pulse 98 99 98 Oximetry O2 Sat by Pulse Oximetry [ Assessment] 03/12/19 03/12/19 03/12/19 01:00 02:00 03:00 Temperature Pulse Rate 80 84 95 H Pulse Rate [ Anterior Bilateral Throughout] Pulse Rate [ From Monitor] Respiratory 20 19 18 Rate Respiratory Rate [Anterior Bilateral Throughout] Blood Pressure 183/72 142/81 153/88 O2 Sat by Pulse 100 99 99 Oximetry O2 Sat by Pulse 97 Oximetry [ Assessment] 03/12/19 03/12/19 03/12/19 04:00 04:01 05:01 Temperature 98.6 F Pulse Rate 91 H 91 H 82 Pulse Rate [ Anterior Bilateral Throughout] Pulse Rate [ 91 H From Monitor] Respiratory 26 H 26 H 27 H Rate Respiratory Rate [Anterior Bilateral Throughout] Blood Pressure 144/78 146/69 O2 Sat by Pulse 99 96 Oximetry O2 Sat by Pulse Oximetry [ Assessment] 03/12/19 03/12/19 06:00 07:00 Temperature 98.6 F Pulse Rate 84 Pulse Rate [ Anterior Bilateral Throughout] Pulse Rate [ From Monitor] Respiratory 18 Rate Respiratory Rate [Anterior Bilateral Throughout] Blood Pressure 138/77 O2 Sat by Pulse 100 Oximetry O2 Sat by Pulse Oximetry [ Assessment] General appearance: Present: mild distress, well-nourished - EENT Eyes: PERRL, EOM intact ENT: hearing intact, clear oral mucosa Ears: bilateral: normal - Neck Neck: supple, normal ROM - Respiratory Respiratory effort: normal Respiratory: bilateral: CTA - Breasts Breasts: normal - Cardiovascular Heart rate: 98 Rhythm: regular Heart Sounds: Present: S1 & S2. Absent: gallop, rub Extremities: pulses intact, No edema, normal color, Full ROM, abnormal (Sacral decubitus ulcer) - Gastrointestinal General gastrointestinal: Present: soft, non-tender, non-distended, normal bowel sounds - Genitourinary Male genitourinary: normal - Integumentary Integumentary: clear, warm, dry - Musculoskeletal Musculoskeletal: generalized weakness - Neurologic Neurologic: moves all extremities - Psychiatric Psychiatric: memory intact, appropriate mood/affect, intact judgment & insight - Allied health notes Allied health notes reviewed: nursing, case management - Labs CBC & Chem 7: 03/09/19 10:48 03/11/19 12:20 Labs: Abnormal lab results 03/11/19 03/11/19 03/11/19 Range/Units 11:56 12:20 18:37 Potassium 5.2 H (3.6-5.0) mmol/L POC Glucose 123 H 125 H (70-105) 03/11/19 Range/Units 22:52 Potassium (3.6-5.0) mmol/L POC Glucose 110 H (70-105)
[2019-03-12] MEDS: METOPROLOL TARTRATE 25 MG TAB PO SCH ×3 (08:48→21:39)
[2019-03-12] MEDS: FAMOTIDINE 20 MG TAB PO SCH (09:53)
[2019-03-12] MEDS: SERTRALINE 100 MG TAB PO SCH (09:53)
[2019-03-12] MEDS: HEPARIN 5,000 UNIT/1 ML VIAL SUB-Q SCH ×2 (09:53→21:39)
[2019-03-12] MEDS: risperiDONE 1 MG TAB PO SCH (09:53)
--- NOTE | 2019-03-12 12:54 | Progress Note ---
Assessment and Plan 63 y/o male with multiple medical issues admitted with altered mental status, acute respiratory failure requiring mechanical ventilation 1. Now on T-piece 2. Follow up with CM 3. Hold off on Mucomyst 4. Needs more HD, will ask [facility] about this. Subjective Date of service: 03/12/19 Principal diagnosis: respiratory failure Interval history: No acute events. CXR this am appears to be more consistent with pulmonary edema. Objective Vital Signs - 12hr 03/12/19 03/12/19 03/12/19 01:00 02:00 03:00 Temperature Pulse Rate 80 84 95 H Pulse Rate [ Anterior Bilateral Throughout] Pulse Rate [ From Monitor] Pulse Rate [ Throughout] Respiratory 20 19 18 Rate Respiratory Rate [Anterior Bilateral Throughout] Respiratory Rate [ Throughout] Blood Pressure 183/72 142/81 153/88 O2 Sat by Pulse 100 99 99 Oximetry O2 Sat by Pulse 97 Oximetry [ Assessment] 03/12/19 03/12/19 03/12/19 04:00 04:01 05:01 Temperature 98.6 F Pulse Rate 91 H 91 H 82 Pulse Rate [ Anterior Bilateral Throughout] Pulse Rate [ 91 H From Monitor] Pulse Rate [ Throughout] Respiratory 26 H 26 H 27 H Rate Respiratory Rate [Anterior Bilateral Throughout] Respiratory Rate [ Throughout] Blood Pressure 144/78 146/69 O2 Sat by Pulse 99 96 Oximetry O2 Sat by Pulse Oximetry [ Assessment] 03/12/19 03/12/19 03/12/19 06:00 07:00 07:01 Temperature 98.6 F Pulse Rate 84 Pulse Rate [ Anterior Bilateral Throughout] Pulse Rate [ From Monitor] Pulse Rate [ Throughout] Respiratory 18 Rate Respiratory Rate [Anterior Bilateral Throughout] Respiratory Rate [ Throughout] Blood Pressure 138/77 140/82 O2 Sat by Pulse 100 91 Oximetry O2 Sat by Pulse Oximetry [ Assessment] 03/12/19 03/12/19 03/12/19 07:50 08:00 08:01 Temperature Pulse Rate 108 H 112 H Pulse Rate [ 102 H Anterior Bilateral Throughout] Pulse Rate [ From Monitor] Pulse Rate [ 102 H Throughout] Respiratory 16 Rate Respiratory 18 Rate [Anterior Bilateral Throughout] Respiratory 18 Rate [ Throughout] Blood Pressure 145/82 O2 Sat by Pulse 95 94 Oximetry O2 Sat by Pulse Oximetry [ Assessment] 03/12/19 03/12/19 08:48 08:49 Temperature Pulse Rate 108 H Pulse Rate [ Anterior Bilateral Throughout] Pulse Rate [ From Monitor] Pulse Rate [ Throughout] Respiratory Rate Respiratory Rate [Anterior Bilateral Throughout] Respiratory Rate [ Throughout] Blood Pressure 145/82 O2 Sat by Pulse Oximetry O2 Sat by Pulse 96 Oximetry [ Assessment] Constitutional: no acute distress, other (critically ill on vent sp trach) Eyes: non-icteric Effort: normal Ascultation: Bilateral: diminished breath sounds, other (coarse BS bilaterally) Percussion: Bilateral: not dull Cardiovascular: regular rate and rhythm (no mrg) Gastrointestinal: normoactive bowel sounds, soft, non-tender, non-distended Extremities: no edema, pink and warm Neurologic: other (mild weakness LUE, o/w nonfocal) Psychiatric: mood appropriate, affect normal CBC and BMP: 03/09/19 10:48 03/11/19 12:20 ABG, PT/INR, D-dimer: ABG POC ABG pH 7.483 (7.35-7.45) H 02/27/19 04:35 ABG pH 7.435 pH Units (7.350-7.450) 03/09/19 13:53 POC ABG pCO2 37.5 (35-45) 02/27/19 04:35 ABG pCO2 46.5 mm Hg 03/09/19 13:53 POC ABG pO2 61 (80-105) L 02/27/19 04:35 ABG pO2 80.8 mm Hg (80.0-90.0) 03/09/19 13:53 POC ABG HCO3 28.1 (22-26 mml/L) 02/27/19 04:35 POC ABG Total CO2 29 (23-27mmol/L) 02/27/19 04:35 POC ABG O2 Sat 93 02/27/19 04:35 ABG O2 Saturation 96.5 % (95.0-99.0) 03/09/19 13:53 PT/INR, D-dimer PT 16.3 Sec. (12.2-14.9) H 03/01/19 09:39 INR 1.35 (0.87-1.13) H 03/01/19 09:39 2987.82 ng/mlDDU (0-234) H 02/22/19 05:54 Abnormal lab findings: Abnormal Labs 02/21/19 02/21/19 02/21/19 18:30 18:30 18:30 RBC 3.26 L Hgb 8.8 L Hct 29.0 L MCH 27 L MCHC 30 L RDW 19.1 H Lymph % (Auto) 6.1 L Page % (Auto) Eos % (Auto) Lymph # 0.4 L Eos # Seg Neutrophils % 86.2 H PT INR D-Dimer POC ABG pH POC ABG pCO2 POC ABG pO2 ABG HCO3 ABG Base Excess ABG Hemoglobin Oxyhemoglobin Sodium 133 L Potassium 3.3 L Chloride 93.1 L Carbon Dioxide 33 H BUN Creatinine Glucose 161 H POC Glucose Phosphorus ALT Alkaline Phosphatase 136 H Total Creatine Kinase 37 L CK-MB (CK-2) Rel Index Troponin T 0.192 H* Albumin 2.4 L LDL Cholesterol Direct 36 L PTH Intact Salicylates Acetaminophen Crossmatch 02/21/19 02/21/19 02/21/19 18:42 20:04 20:04 RBC Hgb Hct MCH MCHC RDW Lymph % (Auto) Page % (Auto) Eos % (Auto) Lymph # Eos # Seg Neutrophils % PT INR D-Dimer POC ABG pH POC ABG pCO2 56.7 H POC ABG pO2 291 H ABG HCO3 ABG Base Excess ABG Hemoglobin Oxyhemoglobin Sodium Potassium Chloride Carbon Dioxide BUN Creatinine Glucose POC Glucose Phosphorus ALT Alkaline Phosphatase Total Creatine Kinase CK-MB (CK-2) Rel Index Troponin T Albumin LDL Cholesterol Direct PTH Intact Salicylates < 0.3 L Acetaminophen < 5.0 L Crossmatch 02/21/19 02/22/19 02/22/19 22:35 03:42 03:42 RBC 3.20 L Hgb 8.8 L Hct 27.6 L MCH MCHC RDW 18.9 H Lymph % (Auto) 7.4 L Page % (Auto) Eos % (Auto) Lymph # 0.7 L Eos # Seg Neutrophils % 84.7 H PT INR D-Dimer POC ABG pH POC ABG pCO2 POC ABG pO2 ABG HCO3 ABG Base Excess ABG Hemoglobin Oxyhemoglobin Sodium 134 L Potassium 2.6 L* D Chloride Carbon Dioxide BUN Creatinine Glucose POC Glucose Phosphorus ALT Alkaline Phosphatase Total Creatine Kinase CK-MB (CK-2) Rel Index 5.2 H Troponin T 0.202 H* Albumin LDL Cholesterol Direct PTH Intact Salicylates Acetaminophen Crossmatch 02/22/19 02/22/19 02/22/19 03:42 05:54 09:04 RBC Hgb Hct MCH MCHC RDW Lymph % (Auto) Page % (Auto) Eos % (Auto) Lymph # Eos # Seg Neutrophils % PT INR D-Dimer 2987.82 H POC ABG pH 7.451 H POC ABG pCO2 POC ABG pO2 ABG HCO3 ABG Base Excess ABG Hemoglobin Oxyhemoglobin Sodium Potassium Chloride Carbon Dioxide BUN Creatinine Glucose POC Glucose Phosphorus ALT Alkaline Phosphatase Total Creatine Kinase CK-MB (CK-2) Rel Index 5.7 H Troponin T 0.193 H* Albumin LDL Cholesterol Direct PTH Intact Salicylates Acetaminophen Crossmatch 02/22/19 02/22/19 02/23/19 10:36 23:56 00:52 RBC Hgb Hct MCH MCHC RDW Lymph % (Auto) Page % (Auto) Eos % (Auto) Lymph # Eos # Seg Neutrophils % PT INR D-Dimer POC ABG pH POC ABG pCO2 POC ABG pO2 ABG HCO3 ABG Base Excess ABG Hemoglobin Oxyhemoglobin Sodium Potassium 3.1 L Chloride Carbon Dioxide BUN Creatinine Glucose POC Glucose 58 L 111 H Phosphorus ALT Alkaline Phosphatase Total Creatine Kinase CK-MB (CK-2) Rel Index Troponin T Albumin LDL Cholesterol Direct PTH Intact Salicylates Acetaminophen Crossmatch 02/23/19 02/23/19 02/23/19 05:00 06:35 14:26 RBC Hgb Hct MCH MCHC RDW Lymph % (Auto) Page % (Auto) Eos % (Auto) Lymph # Eos # Seg Neutrophils % PT INR D-Dimer POC ABG pH POC ABG pCO2 POC ABG pO2 ABG HCO3 ABG Base Excess ABG Hemoglobin Oxyhemoglobin Sodium 135 L Potassium 3.1 L Chloride Carbon Dioxide BUN 21 H Creatinine 2.0 H Glucose 57 L POC Glucose 64 L 62 L Phosphorus ALT Alkaline Phosphatase Total Creatine Kinase CK-MB (CK-2) Rel Index Troponin T Albumin LDL Cholesterol Direct PTH Intact Salicylates Acetaminophen Crossmatch 02/24/19 02/24/19 02/24/19 02:11 04:12 04:55 RBC 2.84 L Hgb 7.8 L Hct 24.5 L MCH MCHC RDW 19.5 H Lymph % (Auto) Page % (Auto) Eos % (Auto) Lymph # Eos # Seg Neutrophils % PT INR D-Dimer POC ABG pH 7.511 H POC ABG pCO2 33.9 L POC ABG pO2 62 L ABG HCO3 ABG Base Excess ABG Hemoglobin Oxyhemoglobin Sodium Potassium Chloride Carbon Dioxide BUN Creatinine Glucose POC Glucose 69 L Phosphorus ALT Alkaline Phosphatase Total Creatine Kinase CK-MB (CK-2) Rel Index Troponin T Albumin LDL Cholesterol Direct PTH Intact Salicylates Acetaminophen Crossmatch 02/24/19 02/24/19 02/25/19 04:55 05:41 04:45 RBC Hgb Hct MCH MCHC RDW Lymph % (Auto) Page % (Auto) Eos % (Auto) Lymph # Eos # Seg Neutrophils % PT INR D-Dimer POC ABG pH 7.466 H POC ABG pCO2 POC ABG pO2 75 L ABG HCO3 ABG Base Excess ABG Hemoglobin Oxyhemoglobin Sodium Potassium Chloride Carbon Dioxide BUN Creatinine 1.8 H Glucose 73 L POC Glucose 127 H Phosphorus ALT Alkaline Phosphatase Total Creatine Kinase CK-MB (CK-2) Rel Index Troponin T Albumin LDL Cholesterol Direct PTH Intact Salicylates Acetaminophen Crossmatch 02/25/19 02/25/19 02/26/19 16:34 21:33 03:45 RBC 2.96 L Hgb 8.0 L Hct 25.8 L MCH 27 L MCHC 31 L RDW 20.0 H Lymph % (Auto) Page % (Auto) Eos % (Auto) Lymph # Eos # Seg Neutrophils % PT INR D-Dimer POC ABG pH POC ABG pCO2 POC ABG pO2 ABG HCO3 ABG Base Excess ABG Hemoglobin Oxyhemoglobin Sodium Potassium Chloride Carbon Dioxide BUN Creatinine Glucose POC Glucose 141 H 106 H Phosphorus ALT Alkaline Phosphatase Total Creatine Kinase CK-MB (CK-2) Rel Index Troponin T Albumin LDL Cholesterol Direct PTH Intact Salicylates Acetaminophen Crossmatch 02/26/19 02/26/19 02/26/19 03:45 04:13 07:53 RBC Hgb Hct MCH MCHC RDW Lymph % (Auto) Page % (Auto) Eos % (Auto) Lymph # Eos # Seg Neutrophils % PT INR D-Dimer POC ABG pH 7.470 H POC ABG pCO2 POC ABG pO2 ABG HCO3 ABG Base Excess ABG Hemoglobin Oxyhemoglobin Sodium Potassium Chloride Carbon Dioxide BUN Creatinine 1.8 H Glucose POC Glucose 110 H Phosphorus ALT Alkaline Phosphatase Total Creatine Kinase CK-MB (CK-2) Rel Index Troponin T Albumin LDL Cholesterol Direct PTH Intact Salicylates Acetaminophen Crossmatch 02/26/19 02/26/19 02/27/19 11:56 17:43 00:12 RBC Hgb Hct MCH MCHC RDW Lymph % (Auto) Page % (Auto) Eos % (Auto) Lymph # Eos # Seg Neutrophils % PT INR D-Dimer POC ABG pH POC ABG pCO2 POC ABG pO2 ABG HCO3 ABG Base Excess ABG Hemoglobin Oxyhemoglobin Sodium Potassium Chloride Carbon Dioxide BUN Creatinine Glucose POC Glucose 112 H 127 H 127 H Phosphorus ALT Alkaline Phosphatase Total Creatine Kinase CK-MB (CK-2) Rel Index Troponin T Albumin LDL Cholesterol Direct PTH Intact Salicylates Acetaminophen Crossmatch 02/27/19 02/27/19 02/27/19 04:35 13:15 18:02 RBC Hgb Hct MCH MCHC RDW Lymph % (Auto) Page % (Auto) Eos % (Auto) Lymph # Eos # Seg Neutrophils % PT INR D-Dimer POC ABG pH 7.483 H POC ABG pCO2 POC ABG pO2 61 L ABG HCO3 ABG Base Excess ABG Hemoglobin Oxyhemoglobin Sodium Potassium Chloride Carbon Dioxide BUN Creatinine Glucose POC Glucose 143 H 106 H Phosphorus ALT Alkaline Phosphatase Total Creatine Kinase CK-MB (CK-2) Rel Index Troponin T Albumin LDL Cholesterol Direct PTH Intact Salicylates Acetaminophen Crossmatch 02/28/19 02/28/19 02/28/19 05:50 11:59 17:52 RBC Hgb Hct MCH MCHC RDW Lymph % (Auto) Page % (Auto) Eos % (Auto) Lymph # Eos # Seg Neutrophils % PT INR D-Dimer POC ABG pH POC ABG pCO2 POC ABG pO2 ABG HCO3 ABG Base Excess ABG Hemoglobin Oxyhemoglobin Sodium Potassium Chloride Carbon Dioxide BUN Creatinine Glucose POC Glucose 134 H 128 H 142 H Phosphorus ALT Alkaline Phosphatase Total Creatine Kinase CK-MB (CK-2) Rel Index Troponin T Albumin LDL Cholesterol Direct PTH Intact Salicylates Acetaminophen Crossmatch 02/28/19 03/01/19 03/01/19 23:13 05:40 09:39 RBC Hgb Hct MCH MCHC RDW Lymph % (Auto) Page % (Auto) Eos % (Auto) Lymph # Eos # Seg Neutrophils % PT 16.3 H INR 1.35 H D-Dimer POC ABG pH POC ABG pCO2 POC ABG pO2 ABG HCO3 ABG Base Excess ABG Hemoglobin Oxyhemoglobin Sodium Potassium Chloride Carbon Dioxide BUN Creatinine Glucose POC Glucose 112 H 111 H Phosphorus ALT Alkaline Phosphatase Total Creatine Kinase CK-MB (CK-2) Rel Index Troponin T Albumin LDL Cholesterol Direct PTH Intact Salicylates Acetaminophen Crossmatch 03/01/19 03/01/19 03/01/19 11:56 13:54 17:59 RBC Hgb Hct MCH MCHC RDW Lymph % (Auto) Page % (Auto) Eos % (Auto) Lymph # Eos # Seg Neutrophils % PT INR D-Dimer POC ABG pH POC ABG pCO2 POC ABG pO2 ABG HCO3 ABG Base Excess ABG Hemoglobin Oxyhemoglobin Sodium Potassium Chloride Carbon Dioxide BUN 33 H Creatinine 2.8 H D Glucose 176 H POC Glucose 199 H 147 H Phosphorus ALT Alkaline Phosphatase Total Creatine Kinase CK-MB (CK-2) Rel Index Troponin T Albumin LDL Cholesterol Direct PTH Intact Salicylates Acetaminophen Crossmatch 03/02/19 03/02/19 03/02/19 05:15 05:15 05:15 RBC 2.73 L Hgb 7.4 L Hct 23.0 L MCH 27 L MCHC RDW 19.9 H Lymph % (Auto) Page % (Auto) 7.9 H Eos % (Auto) 7.6 H Lymph # 1.0 L Eos # 0.5 H Seg Neutrophils % PT INR D-Dimer POC ABG pH POC ABG pCO2 POC ABG pO2 ABG HCO3 ABG Base Excess ABG Hemoglobin Oxyhemoglobin Sodium Potassium Chloride Carbon Dioxide BUN 43 H Creatinine 3.2 H Glucose POC Glucose Phosphorus 2.30 L ALT Alkaline Phosphatase Total Creatine Kinase CK-MB (CK-2) Rel Index Troponin T Albumin LDL Cholesterol Direct PTH Intact 267.6 H Salicylates Acetaminophen Crossmatch 03/02/19 03/02/19 03/03/19 12:32 18:20 13:30 RBC Hgb Hct MCH MCHC RDW Lymph % (Auto) Page % (Auto) Eos % (Auto) Lymph # Eos # Seg Neutrophils % PT INR D-Dimer POC ABG pH POC ABG pCO2 POC ABG pO2 ABG HCO3 ABG Base Excess ABG Hemoglobin Oxyhemoglobin Sodium Potassium Chloride 97.3 L Carbon Dioxide BUN 26 H Creatinine 2.2 H Glucose 73 L POC Glucose 111 H 156 H Phosphorus ALT Alkaline Phosphatase Total Creatine Kinase CK-MB (CK-2) Rel Index Troponin T Albumin LDL Cholesterol Direct PTH Intact Salicylates Acetaminophen Crossmatch 03/04/19 03/04/19 03/04/19 00:02 05:37 05:40 RBC 2.63 L Hgb 7.2 L Hct 22.2 L MCH MCHC RDW 20.2 H Lymph % (Auto) 10.5 L Page % (Auto) Eos % (Auto) 4.6 H Lymph # 0.7 L Eos # Seg Neutrophils % 76.9 H PT INR D-Dimer POC ABG pH POC ABG pCO2 POC ABG pO2 ABG HCO3 ABG Base Excess ABG Hemoglobin Oxyhemoglobin Sodium Potassium Chloride Carbon Dioxide BUN Creatinine Glucose POC Glucose 136 H 123 H Phosphorus ALT Alkaline Phosphatase Total Creatine Kinase CK-MB (CK-2) Rel Index Troponin T Albumin LDL Cholesterol Direct PTH Intact Salicylates Acetaminophen Crossmatch 03/04/19 03/04/19 03/04/19 05:40 11:39 23:20 RBC Hgb Hct MCH MCHC RDW Lymph % (Auto) Page % (Auto) Eos % (Auto) Lymph # Eos # Seg Neutrophils % PT INR D-Dimer POC ABG pH POC ABG pCO2 POC ABG pO2 ABG HCO3 ABG Base Excess ABG Hemoglobin Oxyhemoglobin Sodium Potassium Chloride Carbon Dioxide BUN 34 H Creatinine 2.7 H Glucose 114 H POC Glucose 175 H 151 H Phosphorus ALT Alkaline Phosphatase Total Creatine Kinase CK-MB (CK-2) Rel Index Troponin T Albumin LDL Cholesterol Direct PTH Intact Salicylates Acetaminophen Crossmatch 03/05/19 03/05/19 03/05/19 05:37 12:08 17:11 RBC Hgb Hct MCH MCHC RDW Lymph % (Auto) Page % (Auto) Eos % (Auto) Lymph # Eos # Seg Neutrophils % PT INR D-Dimer POC ABG pH POC ABG pCO2 POC ABG pO2 ABG HCO3 ABG Base Excess ABG Hemoglobin Oxyhemoglobin Sodium Potassium Chloride Carbon Dioxide BUN Creatinine Glucose POC Glucose 134 H 135 H 135 H Phosphorus ALT Alkaline Phosphatase Total Creatine Kinase CK-MB (CK-2) Rel Index Troponin T Albumin LDL Cholesterol Direct PTH Intact Salicylates Acetaminophen Crossmatch 03/06/19 03/06/19 03/06/19 00:16 13:05 18:09 RBC Hgb Hct MCH MCHC RDW Lymph % (Auto) Page % (Auto) Eos % (Auto) Lymph # Eos # Seg Neutrophils % PT INR D-Dimer POC ABG pH POC ABG pCO2 POC ABG pO2 ABG HCO3 ABG Base Excess ABG Hemoglobin Oxyhemoglobin Sodium Potassium Chloride Carbon Dioxide BUN Creatinine Glucose POC Glucose 117 H 113 H 131 H Phosphorus ALT Alkaline Phosphatase Total Creatine Kinase CK-MB (CK-2) Rel Index Troponin T Albumin LDL Cholesterol Direct PTH Intact Salicylates Acetaminophen Crossmatch 03/07/19 03/08/19 03/08/19 05:25 05:33 16:00 RBC 2.44 L Hgb 6.6 L Hct 20.8 L MCH 27 L MCHC RDW 19.2 H Lymph % (Auto) Page % (Auto) Eos % (Auto) 8.6 H Lymph # 0.8 L Eos # 0.5 H Seg Neutrophils % 70.7 H PT INR D-Dimer POC ABG pH POC ABG pCO2 POC ABG pO2 ABG HCO3 ABG Base Excess ABG Hemoglobin Oxyhemoglobin Sodium Potassium Chloride Carbon Dioxide BUN Creatinine Glucose POC Glucose 106 H 108 H Phosphorus ALT Alkaline Phosphatase Total Creatine Kinase CK-MB (CK-2) Rel Index Troponin T Albumin LDL Cholesterol Direct PTH Intact Salicylates Acetaminophen Crossmatch 03/08/19 03/08/19 03/08/19 16:00 18:38 Unknown RBC Hgb Hct MCH MCHC RDW Lymph % (Auto) Page % (Auto) Eos % (Auto) Lymph # Eos # Seg Neutrophils % PT INR D-Dimer POC ABG pH POC ABG pCO2 POC ABG pO2 ABG HCO3 ABG Base Excess ABG Hemoglobin Oxyhemoglobin Sodium Potassium 5.4 H D Chloride Carbon Dioxide BUN 47 H Creatinine 2.6 H Glucose POC Glucose 123 H Phosphorus ALT < 5 L Alkaline Phosphatase Total Creatine Kinase CK-MB (CK-2) Rel Index Troponin T Albumin 2.2 L LDL Cholesterol Direct PTH Intact Salicylates Acetaminophen Crossmatch See Detail 03/09/19 03/09/19 03/09/19 10:48 12:28 13:53 RBC 2.85 L Hgb 7.7 L Hct 24.2 L MCH 27 L MCHC RDW 18.7 H Lymph % (Auto) Page % (Auto) Eos % (Auto) Lymph # Eos # Seg Neutrophils % PT INR D-Dimer POC ABG pH POC ABG pCO2 POC ABG pO2 ABG HCO3 30.5 H ABG Base Excess 5.6 H ABG Hemoglobin 8.1 L Oxyhemoglobin 93.8 L Sodium Potassium Chloride Carbon Dioxide BUN Creatinine Glucose POC Glucose 114 H Phosphorus ALT Alkaline Phosphatase Total Creatine Kinase CK-MB (CK-2) Rel Index Troponin T Albumin LDL Cholesterol Direct PTH Intact Salicylates Acetaminophen Crossmatch 03/09/19 03/09/19 03/10/19 17:58 23:53 12:01 RBC Hgb Hct MCH MCHC RDW Lymph % (Auto) Page % (Auto) Eos % (Auto) Lymph # Eos # Seg Neutrophils % PT INR D-Dimer POC ABG pH POC ABG pCO2 POC ABG pO2 ABG HCO3 ABG Base Excess ABG Hemoglobin Oxyhemoglobin Sodium Potassium Chloride Carbon Dioxide BUN Creatinine Glucose POC Glucose 108 H 128 H 144 H Phosphorus ALT Alkaline Phosphatase Total Creatine Kinase CK-MB (CK-2) Rel Index Troponin T Albumin LDL Cholesterol Direct PTH Intact Salicylates Acetaminophen Crossmatch 03/10/19 03/11/19 03/11/19 16:50 00:24 05:02 RBC Hgb Hct MCH MCHC RDW Lymph % (Auto) Page % (Auto) Eos % (Auto) Lymph # Eos # Seg Neutrophils % PT INR D-Dimer POC ABG pH POC ABG pCO2 POC ABG pO2 ABG HCO3 ABG Base Excess ABG Hemoglobin Oxyhemoglobin Sodium Potassium Chloride Carbon Dioxide BUN Creatinine Glucose POC Glucose 147 H 123 H 120 H Phosphorus ALT Alkaline Phosphatase Total Creatine Kinase CK-MB (CK-2) Rel Index Troponin T Albumin LDL Cholesterol Direct PTH Intact Salicylates Acetaminophen Crossmatch 03/11/19 03/11/19 03/11/19 11:56 12:20 18:37 RBC Hgb Hct MCH MCHC RDW Lymph % (Auto) Page % (Auto) Eos % (Auto) Lymph # Eos # Seg Neutrophils % PT INR D-Dimer POC ABG pH POC ABG pCO2 POC ABG pO2 ABG HCO3 ABG Base Excess ABG Hemoglobin Oxyhemoglobin Sodium Potassium 5.2 H Chloride Carbon Dioxide BUN Creatinine Glucose POC Glucose 123 H 125 H Phosphorus ALT Alkaline Phosphatase Total Creatine Kinase CK-MB (CK-2) Rel Index Troponin T Albumin LDL Cholesterol Direct PTH Intact Salicylates Acetaminophen Crossmatch 03/11/19 03/12/19 22:52 12:04 RBC Hgb Hct MCH MCHC RDW Lymph % (Auto) Page % (Auto) Eos % (Auto) Lymph # Eos # Seg Neutrophils % PT INR D-Dimer POC ABG pH POC ABG pCO2 POC ABG pO2 ABG HCO3 ABG Base Excess ABG Hemoglobin Oxyhemoglobin Sodium Potassium Chloride Carbon Dioxide BUN Creatinine Glucose POC Glucose 110 H 106 H Phosphorus ALT Alkaline Phosphatase Total Creatine Kinase CK-MB (CK-2) Rel Index Troponin T Albumin LDL Cholesterol Direct PTH Intact Salicylates Acetaminophen Crossmatch
--- NOTE | 2019-03-12 15:22 | Progress Note ---
Assessment and Plan Assessment: * End stage renal disease (outpatient TTS schedule) * Acute hypoxic respiratory failure on mechanical ventilation * Atrial fibrillation * History of CVA * Anemia secondary to ESRD * Secondary hyperparathyroidism Plan * Continue HD MWF schedule for now while inpatient * UF as tolerated; reviewed pulmonary notes and CXR, will aim for higher UF tomorrow * AVG in use. Appreciate vascular assistance to remove Permacath * Empiric abx per ID/primary team * Nutrition per primary team * Dose medications for renal function * Epogen TID Overall prognosis remains poor; will continue to follow for ESRD needs Subjective Date of service: 03/12/19 Principal diagnosis: respiratory failure Interval history: no acute issues noted overnight. patient not able to verbalize any issues due to mental status. due for HD tomorrow Objective - Exam Narrative Exam: General appearance: chronically ill, intubated, frail EENT: normocephalic Neck: ETT in place Respiratory: coarse mechanical breath sounds bilaterally Cardiology: regular, S1S2, no edema Gastrointestinal: PEG and colostomy noted Integumentary: warm and dry Psychiatric: unable to assess - Vital Signs Vital signs: Vital Signs - 12hr 03/12/19 03/12/19 03/12/19 04:00 04:01 05:01 Temperature 98.6 F Pulse Rate 91 H 91 H 82 Pulse Rate [ Anterior Bilateral Throughout] Pulse Rate [ 91 H From Monitor] Pulse Rate [ Throughout] Respiratory 26 H 26 H 27 H Rate Respiratory Rate [Anterior Bilateral Throughout] Respiratory Rate [ Throughout] Blood Pressure 144/78 146/69 O2 Sat by Pulse 99 96 Oximetry O2 Sat by Pulse Oximetry [ Assessment] 03/12/19 03/12/19 03/12/19 06:00 07:00 07:01 Temperature 98.6 F Pulse Rate 84 Pulse Rate [ Anterior Bilateral Throughout] Pulse Rate [ From Monitor] Pulse Rate [ Throughout] Respiratory 18 Rate Respiratory Rate [Anterior Bilateral Throughout] Respiratory Rate [ Throughout] Blood Pressure 138/77 140/82 O2 Sat by Pulse 100 91 Oximetry O2 Sat by Pulse Oximetry [ Assessment] 03/12/19 03/12/19 03/12/19 07:50 08:00 08:01 Temperature Pulse Rate 108 H 112 H Pulse Rate [ 102 H Anterior Bilateral Throughout] Pulse Rate [ 107 H From Monitor] Pulse Rate [ 102 H Throughout] Respiratory 22 16 Rate Respiratory 18 Rate [Anterior Bilateral Throughout] Respiratory 18 Rate [ Throughout] Blood Pressure 145/82 O2 Sat by Pulse 95 98 94 Oximetry O2 Sat by Pulse Oximetry [ Assessment] 03/12/19 03/12/19 03/12/19 08:48 08:49 09:00 Temperature Pulse Rate 108 H 109 H Pulse Rate [ Anterior Bilateral Throughout] Pulse Rate [ From Monitor] Pulse Rate [ Throughout] Respiratory 13 Rate Respiratory Rate [Anterior Bilateral Throughout] Respiratory Rate [ Throughout] Blood Pressure 145/82 140/82 O2 Sat by Pulse 96 Oximetry O2 Sat by Pulse 96 Oximetry [ Assessment] 03/12/19 03/12/19 03/12/19 10:01 11:00 12:00 Temperature 97.8 F Pulse Rate 112 H 83 91 H Pulse Rate [ Anterior Bilateral Throughout] Pulse Rate [ 88 From Monitor] Pulse Rate [ Throughout] Respiratory 12 25 H 17 Rate Respiratory Rate [Anterior Bilateral Throughout] Respiratory Rate [ Throughout] Blood Pressure 146/73 142/82 135/73 O2 Sat by Pulse 97 96 98 Oximetry O2 Sat by Pulse Oximetry [ Assessment] - Lab 03/09/19 10:48 03/11/19 12:20 Most recent lab results ABG pH 7.435 pH Units (7.350-7.450) 03/09/19 13:53 ABG pCO2 46.5 mm Hg 03/09/19 13:53 ABG pO2 80.8 mm Hg (80.0-90.0) 03/09/19 13:53 ABG HCO3 30.5 mmol/L (20.0-26.0) H 03/09/19 13:53 ABG O2 Saturation 96.5 % (95.0-99.0) 03/09/19 13:53 Calcium 10.0 mg/dL (8.4-10.2) 03/08/19 16:00 Phosphorus 2.30 mg/dL (2.5-4.5) L 03/02/19 05:15 Magnesium 2.20 mg/dL (1.7-2.3) 03/02/19 05:15 Medications & Allergies - Medications Allergies/Adverse Reactions: Allergies haloperidol [From Haldol] Adverse Reaction (Verified 03/13/18 12:10) Unknown haloperidol lactate [From Haldol] Adverse Reaction (Verified 03/13/18 12:10) Unknown Home Medications: Home Medications Medication Instructions Recorded Confirmed Last Taken Type risperiDONE [RisperDAL] 1 mg PO QAM 03/13/18 02/21/19 Unknown History Sertraline [Zoloft] 100 mg PO QDAY 08/26/18 02/21/19 Unknown History Polyethylene Glycol 3350 [Miralax 17 gm PO QDAY #30 packet 11/05/18 02/21/19 Unknown Rx 3350] Aspirin EC [Halfprin EC] 81 mg PO DAILY #30 11/19/18 02/21/19 Unknown Rx Docusate Sodium [Colace CAP] 100 mg PO BID #60 11/19/18 02/21/19 Unknown Rx Folic Acid [Folvite] 1 mg PO DAILY #30 tab 11/19/18 02/21/19 Unknown Rx Famotidine [Pepcid] 20 mg PO DAILY tablet 12/08/18 02/21/19 Unknown Rx Gabapentin [Neurontin] 100 mg PO QHS capsule 12/08/18 02/21/19 Unknown Rx Metoprolol [Lopressor TAB] 50 mg PO BID 30 Days tablet 12/08/18 02/21/19 Unknown Rx Sevelamer Carbonate [Renvela] 800 mg PO TIDWM tablet 12/08/18 02/21/19 Unknown Rx hydrALAZINE [Apresoline TAB] 100 mg PO Q8HR #120 tablet 12/08/18 02/21/19 Unknown Rx Acetaminophen [Acetaminophen TAB] 650 mg PO Q12H PRN 12/15/18 02/21/19 Unknown History Glucagon,Human Recombinant 1 mg IJ Q15MIN PRN 12/15/18 02/21/19 Unknown History [Glucagon Emergency Kit] Insulin Aspart [NovoLOG 100 See Protocol SQ QWEEK 12/15/18 02/21/19 Unknown History UNITS/ML VIAL] Active Medications: Generic Name Dose Route Start Last Admin Trade Name Freq PRN Reason Stop Dose Admin Acetaminophen 650 mg 02/21/19 22:19 03/05/19 08:16 Tylenol PO 650 mg Q4H PRN Administration Pain MILD(1-3)/Fever >100.5/HILL Albuterol/Ipratropium 1 ampul 02/24/19 20:00 03/12/19 07:50 Duoneb *Not For Prn Use* IH 1 ampul TIDRT SANCHEZ Administration Lipase/Protease/Amylase 1 each 03/05/19 14:04 Pancrejewel Barrientos 10,500 Unit FEEDTUBE PRN PRN For Clogged Feeding Tube Dextrose 50 ml 02/21/19 22:22 03/03/19 17:37 D50w (25gm) Syringe IV 50 ml PRN PRN Administration Hypoglycemia Famotidine 20 mg 02/23/19 10:00 03/12/19 09:53 Pepcid PO 20 mg DAILY SANCHEZ Administration Heparin Sodium (Porcine) 5,000 unit 03/04/19 22:00 03/12/19 09:53 Heparin SUB-Q 5,000 unit Q12HR SANCHEZ Administration Hydrophilic Ointment 1 applic 02/21/19 18:24 03/05/19 08:16 Vaseline Lip Therapy TP 1 applic Q2HR PRN Administration Dry Lips Sodium Chloride 100 mls @ 999 mls/hr 02/26/19 09:00 Nacl 0.9% IV UMA PRN Hypotension Insulin Human Regular 0 units 02/26/19 12:00 03/12/19 06:48 Humulin R SUB-Q Not Given Q6HR [facility] Protocol Metoprolol Tartrate 2.5 mg 02/28/19 12:06 03/01/19 10:32 Lopressor IV 2.5 mg Q4HR PRN Administration Tachycardia Metoprolol Tartrate 25 mg 03/02/19 14:00 03/12/19 08:48 Lopressor PO 25 mg TID SANCHEZ Administration Multi-Ingred Cream/Lotion/Oil/Oint 1 applic 02/21/19 18:24 Artificial Tears Ophth Oint OU Q4HR PRN Dry Eye(s) Ondansetron HCl 4 mg 02/21/19 22:19 Zofran IV Q8H PRN Nausea And Vomiting Risperidone 1 mg 02/25/19 13:00 03/12/19 09:53 Risperdal PO 1 mg DAILY SANCHEZ Administration Sertraline HCl 100 mg 02/25/19 13:00 03/12/19 09:53 Zoloft PO 100 mg DAILY SANCHEZ Administration Simple Syrup 15 ml 03/05/19 14:04 Simple Syrup FEEDTUBE PRN PRN Hypoglycemia Simple Syrup 30 ml 03/05/19 14:04 Simple Syrup FEEDTUBE PRN PRN Hypoglycemia Sodium Bicarbonate 325 mg 03/05/19 14:04 Sodium Bicarbonate FEEDTUBE PRN PRN For Clogged Feeding Tube Sodium Chloride 10 ml 02/22/19 10:00 03/12/19 09:53 Sodium Chloride Flush Syringe 10 Ml IV 10 ml BID SANCHEZ Administration Sodium Chloride 10 ml 02/21/19 22:19 02/24/19 22:00 Sodium Chloride Flush Syringe 10 Ml IV 10 ml PRN PRN Administration LINE FLUSH Tramadol HCl 50 mg 03/05/19 10:08 03/08/19 16:54 Ultram PO 50 mg Q6H PRN Administration Pain, Moderate (4-6)
[2019-03-12] MEDS: traMADol 50 MG TAB PO PRN (21:39)
[2019-03-13] MEDS: INSULIN REGULAR, HUMAN 100 UNITS/1 ML SUB-Q SCH ×4 (01:00→18:57)
[2019-03-13] MEDS: SCOPOLAMINE TRANSDERMAL PATCH 72 HR TD SCH (05:00)
[2019-03-13 05:25] LABS: Basophils # (Auto) 0.1 K/mm3 (0.0-0.1); Eosinophils # (Auto) 0.3 K/mm3 (0.0-0.4); Eosinophils % (Auto) 4.4 % (0.0-4.3); Hematocrit 24.9 % (35.5-45.6); Hemoglobin 7.9 gm/dl (11.8-15.2); Lymphocytes # (Auto) 0.9 K/mm3 (1.2-5.4); Lymphocytes % (Auto) 11.1 % (13.4-35.0); Mean Corpuscular HGB Conc 32 % (32-34); Mean Corpuscular Volume 85 fl (84-94); Monocytes # (Auto) 0.6 K/mm3 (0.0-0.8); Monocytes % (Auto) 8.1 % (0.0-7.3); Platelet Count 366 K/mm3 (140-440); Red Blood Count 2.95 M/mm3 (3.65-5.03); Red Cell Distribution Width 19.9 % (13.2-15.2)
[2019-03-13 05:43] LABS: Alanine Aminotransferase < 5 units/L (7-56); Albumin 2.5 g/dL (3.9-5); BUN/Creatinine Ratio 18; Blood Urea Nitrogen 48 mg/dL (9-20); Calcium 10.2 mg/dL (8.4-10.2); Hemolysis Index 1
[2019-03-13] MEDS: IPRATROPIUM/ALBUTEROL SULFATE 3 ML AMPUL.NEB IH SCH ×3 (07:17→20:39)
[2019-03-13] MEDS: METOPROLOL TARTRATE 25 MG TAB PO SCH ×3 (08:13→20:43)
--- NOTE | 2019-03-13 10:38 | Progress Note ---
Assessment and Plan Assessment: * End stage renal disease (outpatient TTS schedule) * Acute hypoxic respiratory failure on mechanical ventilation * Atrial fibrillation * History of CVA * Anemia secondary to ESRD * Secondary hyperparathyroidism Plan * Continue HD MWF schedule for now while inpatient * UF as tolerated; reviewed pulmonary notes and CXR, have increased UF goal today with no issues so far * AVG in use. Appreciate vascular assistance to remove Permacath * Empiric abx per ID/primary team * Nutrition per primary team * Dose medications for renal function * Epogen TID Overall prognosis remains poor; will continue to follow for ESRD needs while inpatient. Subjective Date of service: 03/13/19 Principal diagnosis: respiratory failure Interval history: no acute issues noted overnight. patient not able to verbalize any issues due to mental status. seen on HD- no issues noted per HD nurse with stable BP since initiation. Objective - Exam Narrative Exam: General appearance: chronically ill, intubated, frail EENT: normocephalic Neck: ETT in place Respiratory: coarse mechanical breath sounds bilaterally Cardiology: regular, S1S2, no edema Gastrointestinal: PEG and colostomy noted Integumentary: warm and dry Psychiatric: unable to assess - Vital Signs Vital signs: Vital Signs - 12hr 03/12/19 03/12/19 03/13/19 23:00 23:41 00:00 Temperature 98.4 F Pulse Rate 106 H 107 H 107 H Pulse Rate [ Anterior Bilateral Throughout] Pulse Rate [ Brachial] Pulse Rate [ 107 H From Monitor] Pulse Rate [ Throughout] Respiratory 19 20 14 Rate Respiratory Rate [Anterior Bilateral Throughout] Respiratory Rate [ Throughout] Blood Pressure 133/81 133/81 131/77 O2 Sat by Pulse 94 96 97 Oximetry O2 Sat by Pulse Oximetry [ Anterior Bilateral Throughout] O2 Sat by Pulse Oximetry [ Assessment] O2 Sat by Pulse Oximetry [ Throughout] 03/13/19 03/13/19 03/13/19 01:00 02:00 03:00 Temperature Pulse Rate 107 H 107 H 108 H Pulse Rate [ Anterior Bilateral Throughout] Pulse Rate [ Brachial] Pulse Rate [ From Monitor] Pulse Rate [ Throughout] Respiratory 25 H 29 H 30 H Rate Respiratory Rate [Anterior Bilateral Throughout] Respiratory Rate [ Throughout] Blood Pressure 129/78 133/79 136/77 O2 Sat by Pulse 97 95 87 Oximetry O2 Sat by Pulse Oximetry [ Anterior Bilateral Throughout] O2 Sat by Pulse Oximetry [ Assessment] O2 Sat by Pulse Oximetry [ Throughout] 03/13/19 03/13/19 03/13/19 03:40 03:41 04:00 Temperature 98.1 F Pulse Rate 107 H Pulse Rate [ Anterior Bilateral Throughout] Pulse Rate [ Brachial] Pulse Rate [ 107 H From Monitor] Pulse Rate [ Throughout] Respiratory 24 Rate Respiratory Rate [Anterior Bilateral Throughout] Respiratory Rate [ Throughout] Blood Pressure O2 Sat by Pulse 97 98 Oximetry O2 Sat by Pulse Oximetry [ Anterior Bilateral Throughout] O2 Sat by Pulse 97 Oximetry [ Assessment] O2 Sat by Pulse Oximetry [ Throughout] 03/13/19 03/13/19 03/13/19 04:01 05:01 06:01 Temperature Pulse Rate 107 H 107 H 107 H Pulse Rate [ Anterior Bilateral Throughout] Pulse Rate [ Brachial] Pulse Rate [ From Monitor] Pulse Rate [ Throughout] Respiratory 29 H 29 H 13 Rate Respiratory Rate [Anterior Bilateral Throughout] Respiratory Rate [ Throughout] Blood Pressure 136/77 149/85 149/85 O2 Sat by Pulse 95 99 99 Oximetry O2 Sat by Pulse Oximetry [ Anterior Bilateral Throughout] O2 Sat by Pulse Oximetry [ Assessment] O2 Sat by Pulse Oximetry [ Throughout] 03/13/19 03/13/19 03/13/19 07:01 07:17 07:19 Temperature Pulse Rate 112 H Pulse Rate [ 113 H Anterior Bilateral Throughout] Pulse Rate [ Brachial] Pulse Rate [ From Monitor] Pulse Rate [ 108 H Throughout] Respiratory 32 H Rate Respiratory 30 H Rate [Anterior Bilateral Throughout] Respiratory 25 H Rate [ Throughout] Blood Pressure 141/76 O2 Sat by Pulse 94 94 Oximetry O2 Sat by Pulse Oximetry [ Anterior Bilateral Throughout] O2 Sat by Pulse Oximetry [ Assessment] O2 Sat by Pulse Oximetry [ Throughout] 03/13/19 03/13/19 03/13/19 07:21 08:00 08:13 Temperature 98.8 F Pulse Rate 108 H 117 H Pulse Rate [ Anterior Bilateral Throughout] Pulse Rate [ 113 H Brachial] Pulse Rate [ 107 H From Monitor] Pulse Rate [ Throughout] Respiratory 23 Rate Respiratory Rate [Anterior Bilateral Throughout] Respiratory Rate [ Throughout] Blood Pressure 137/69 137/69 O2 Sat by Pulse 96 Oximetry O2 Sat by Pulse Oximetry [ Anterior Bilateral Throughout] O2 Sat by Pulse 94 Oximetry [ Assessment] O2 Sat by Pulse Oximetry [ Throughout] 03/13/19 03/13/19 03/13/19 09:15 09:30 09:34 Temperature 98.8 F Pulse Rate 106 H 81 107 H Pulse Rate [ Anterior Bilateral Throughout] Pulse Rate [ Brachial] Pulse Rate [ From Monitor] Pulse Rate [ Throughout] Respiratory 24 Rate Respiratory Rate [Anterior Bilateral Throughout] Respiratory Rate [ Throughout] Blood Pressure 130/69 122/62 137/69 O2 Sat by Pulse Oximetry O2 Sat by Pulse 97 Oximetry [ Anterior Bilateral Throughout] O2 Sat by Pulse Oximetry [ Assessment] O2 Sat by Pulse 97 Oximetry [ Throughout] - Lab 03/13/19 04:38 03/13/19 04:38 Most recent lab results ABG pH 7.435 pH Units (7.350-7.450) 03/09/19 13:53 ABG pCO2 46.5 mm Hg 03/09/19 13:53 ABG pO2 80.8 mm Hg (80.0-90.0) 03/09/19 13:53 ABG HCO3 30.5 mmol/L (20.0-26.0) H 03/09/19 13:53 ABG O2 Saturation 96.5 % (95.0-99.0) 03/09/19 13:53 Calcium 10.2 mg/dL (8.4-10.2) 03/13/19 04:38 Phosphorus 2.30 mg/dL (2.5-4.5) L 03/02/19 05:15 Magnesium 2.20 mg/dL (1.7-2.3) 03/02/19 05:15 Medications & Allergies - Medications Allergies/Adverse Reactions: Allergies haloperidol [From Haldol] Adverse Reaction (Verified 03/13/18 12:10) Unknown haloperidol lactate [From Haldol] Adverse Reaction (Verified 03/13/18 12:10) Unknown Home Medications: Home Medications Medication Instructions Recorded Confirmed Last Taken Type risperiDONE [RisperDAL] 1 mg PO QAM 03/13/18 02/21/19 Unknown History Sertraline [Zoloft] 100 mg PO QDAY 08/26/18 02/21/19 Unknown History Polyethylene Glycol 3350 [Miralax 17 gm PO QDAY #30 packet 11/05/18 02/21/19 Unknown Rx 3350] Aspirin EC [Halfprin EC] 81 mg PO DAILY #30 11/19/18 02/21/19 Unknown Rx Docusate Sodium [Colace CAP] 100 mg PO BID #60 05/01/19 08/03/19 Unknown Rx Folic Acid [Folvite] 1 mg PO DAILY #30 tab 11/19/18 02/21/19 Unknown Rx Famotidine [Pepcid] 20 mg PO DAILY tablet 12/08/18 02/21/19 Unknown Rx Gabapentin [Neurontin] 100 mg PO QHS capsule 12/08/18 02/21/19 Unknown Rx Metoprolol [Lopressor TAB] 50 mg PO BID 30 Days tablet 12/08/18 02/21/19 Unknown Rx Sevelamer Carbonate [Renvela] 800 mg PO TIDWM tablet 12/08/18 02/21/19 Unknown Rx hydrALAZINE [Apresoline TAB] 100 mg PO Q8HR #120 tablet 12/08/18 02/21/19 Unknown Rx Acetaminophen [Acetaminophen TAB] 650 mg PO Q12H PRN 12/15/18 02/21/19 Unknown History Glucagon,Human Recombinant 1 mg IJ Q15MIN PRN 12/15/18 02/21/19 Unknown History [Glucagon Emergency Kit] Insulin Aspart [NovoLOG 100 See Protocol SQ QWEEK 12/15/18 02/21/19 Unknown History UNITS/ML VIAL] Active Medications: Generic Name Dose Route Start Last Admin Trade Name Freq PRN Reason Stop Dose Admin Acetaminophen 650 mg 02/21/19 22:19 03/05/19 08:16 Tylenol PO 650 mg Q4H PRN Administration Pain MILD(1-3)/Fever >100.5/HILL Albuterol/Ipratropium 1 ampul 02/24/19 20:00 03/13/19 07:17 Duoneb *Not For Prn Use* IH 1 ampul TIDRT SANCHEZ Administration Lipase/Protease/Amylase 1 each 03/05/19 14:04 Pancrejewel Barrientos 10,500 Unit FEEDTUBE PRN PRN For Clogged Feeding Tube Dextrose 50 ml 02/21/19 22:22 03/03/19 17:37 D50w (25gm) Syringe IV 50 ml PRN PRN Administration Hypoglycemia Famotidine 20 mg 02/23/19 10:00 03/12/19 09:53 Pepcid PO 20 mg DAILY SANCHEZ Administration Heparin Sodium (Porcine) 5,000 unit 03/04/19 22:00 03/12/19 21:39 Heparin SUB-Q 5,000 unit Q12HR SANCHEZ Administration Hydrophilic Ointment 1 applic 02/21/19 18:24 03/05/19 08:16 Vaseline Lip Therapy TP 1 applic Q2HR PRN Administration Dry Lips Sodium Chloride 100 mls @ 999 mls/hr 02/26/19 09:00 Nacl 0.9% IV UMA PRN Hypotension Insulin Human Regular 0 units 02/26/19 12:00 03/13/19 05:44 Humulin R SUB-Q Not Given Q6HR [facility] Protocol Metoprolol Tartrate 2.5 mg 02/28/19 12:06 03/01/19 10:32 Lopressor IV 2.5 mg Q4HR PRN Administration Tachycardia Metoprolol Tartrate 25 mg 03/02/19 14:00 03/13/19 08:13 Lopressor PO 25 mg TID SANCHEZ Administration Multi-Ingred Cream/Lotion/Oil/Oint 1 applic 02/21/19 18:24 Artificial Tears Ophth Oint OU Q4HR PRN Dry Eye(s) Ondansetron HCl 4 mg 02/21/19 22:19 03/12/19 21:39 Zofran IV 4 mg Q8H PRN Administration Nausea And Vomiting Risperidone 1 mg 02/25/19 13:00 03/12/19 09:53 Risperdal PO 1 mg DAILY SANCHEZ Administration Scopolamine 1 each 03/13/19 04:00 03/13/19 05:00 Transderm-Scop TD 1 each Q3D SANCHEZ Administration Sertraline HCl 100 mg 02/25/19 13:00 03/12/19 09:53 Zoloft PO 100 mg DAILY SANCHEZ Administration Simple Syrup 15 ml 03/05/19 14:04 Simple Syrup FEEDTUBE PRN PRN Hypoglycemia Simple Syrup 30 ml 03/05/19 14:04 Simple Syrup FEEDTUBE PRN PRN Hypoglycemia Sodium Bicarbonate 325 mg 03/05/19 14:04 Sodium Bicarbonate FEEDTUBE PRN PRN For Clogged Feeding Tube Sodium Chloride 10 ml 02/22/19 10:00 03/12/19 21:40 Sodium Chloride Flush Syringe 10 Ml IV 10 ml BID SANCHEZ Administration Sodium Chloride 10 ml 02/21/19 22:19 02/24/19 22:00 Sodium Chloride Flush Syringe 10 Ml IV 10 ml PRN PRN Administration LINE FLUSH Tramadol HCl 50 mg 03/05/19 10:08 03/12/19 21:39 Ultram PO 50 mg Q6H PRN Administration Pain, Moderate (4-6)
--- NOTE | 2019-03-13 11:59 | Progress Note ---
Assessment and Plan 63 y/o male with multiple medical issues admitted with altered mental status, acute respiratory failure requiring mechanical ventilation 1. Now on T-piece 2. Follow up with CM, still no placement options yet. 3. Hold off on Mucomyst 4. HD per renal. Subjective Date of service: 03/13/19 Principal diagnosis: respiratory failure Interval history: No acute events. appreciate renal help and increasing UF. Pulm status stable. Objective Vital Signs - 12hr 03/13/19 03/13/19 03/13/19 00:00 01:00 02:00 Temperature 98.4 F Pulse Rate 107 H 107 H 107 H Pulse Rate [ Anterior Bilateral Throughout] Pulse Rate [ Brachial] Pulse Rate [ 107 H From Monitor] Pulse Rate [ Throughout] Respiratory 14 25 H 29 H Rate Respiratory Rate [Anterior Bilateral Throughout] Respiratory Rate [ Throughout] Blood Pressure 131/77 129/78 133/79 O2 Sat by Pulse 97 97 95 Oximetry O2 Sat by Pulse Oximetry [ Anterior Bilateral Throughout] O2 Sat by Pulse Oximetry [ Assessment] O2 Sat by Pulse Oximetry [ Throughout] 03/13/19 03/13/19 03/13/19 03:00 03:40 03:41 Temperature Pulse Rate 108 H Pulse Rate [ Anterior Bilateral Throughout] Pulse Rate [ Brachial] Pulse Rate [ From Monitor] Pulse Rate [ Throughout] Respiratory 30 H Rate Respiratory Rate [Anterior Bilateral Throughout] Respiratory Rate [ Throughout] Blood Pressure 136/77 O2 Sat by Pulse 87 97 Oximetry O2 Sat by Pulse Oximetry [ Anterior Bilateral Throughout] O2 Sat by Pulse 97 Oximetry [ Assessment] O2 Sat by Pulse Oximetry [ Throughout] 03/13/19 03/13/19 03/13/19 04:00 04:01 05:01 Temperature 98.1 F Pulse Rate 107 H 107 H 107 H Pulse Rate [ Anterior Bilateral Throughout] Pulse Rate [ Brachial] Pulse Rate [ 107 H From Monitor] Pulse Rate [ Throughout] Respiratory 24 29 H 29 H Rate Respiratory Rate [Anterior Bilateral Throughout] Respiratory Rate [ Throughout] Blood Pressure 136/77 149/85 O2 Sat by Pulse 98 95 99 Oximetry O2 Sat by Pulse Oximetry [ Anterior Bilateral Throughout] O2 Sat by Pulse Oximetry [ Assessment] O2 Sat by Pulse Oximetry [ Throughout] 03/13/19 03/13/19 03/13/19 06:01 07:01 07:17 Temperature Pulse Rate 107 H 112 H Pulse Rate [ 113 H Anterior Bilateral Throughout] Pulse Rate [ Brachial] Pulse Rate [ From Monitor] Pulse Rate [ 108 H Throughout] Respiratory 13 32 H Rate Respiratory 30 H Rate [Anterior Bilateral Throughout] Respiratory 25 H Rate [ Throughout] Blood Pressure 149/85 141/76 O2 Sat by Pulse 99 94 Oximetry O2 Sat by Pulse Oximetry [ Anterior Bilateral Throughout] O2 Sat by Pulse Oximetry [ Assessment] O2 Sat by Pulse Oximetry [ Throughout] 03/13/19 03/13/19 03/13/19 07:19 07:21 08:00 Temperature 98.8 F Pulse Rate 108 H Pulse Rate [ Anterior Bilateral Throughout] Pulse Rate [ 113 H Brachial] Pulse Rate [ 107 H From Monitor] Pulse Rate [ Throughout] Respiratory 23 Rate Respiratory Rate [Anterior Bilateral Throughout] Respiratory Rate [ Throughout] Blood Pressure 137/69 O2 Sat by Pulse 94 96 Oximetry O2 Sat by Pulse Oximetry [ Anterior Bilateral Throughout] O2 Sat by Pulse 94 Oximetry [ Assessment] O2 Sat by Pulse Oximetry [ Throughout] 03/13/19 03/13/19 03/13/19 08:13 09:15 09:30 Temperature Pulse Rate 117 H 106 H 81 Pulse Rate [ Anterior Bilateral Throughout] Pulse Rate [ Brachial] Pulse Rate [ From Monitor] Pulse Rate [ Throughout] Respiratory Rate Respiratory Rate [Anterior Bilateral Throughout] Respiratory Rate [ Throughout] Blood Pressure 137/69 130/69 122/62 O2 Sat by Pulse Oximetry O2 Sat by Pulse Oximetry [ Anterior Bilateral Throughout] O2 Sat by Pulse Oximetry [ Assessment] O2 Sat by Pulse Oximetry [ Throughout] 03/13/19 03/13/19 03/13/19 09:34 09:45 10:00 Temperature 98.8 F Pulse Rate 107 H 82 108 H Pulse Rate [ Anterior Bilateral Throughout] Pulse Rate [ Brachial] Pulse Rate [ From Monitor] Pulse Rate [ Throughout] Respiratory 24 Rate Respiratory Rate [Anterior Bilateral Throughout] Respiratory Rate [ Throughout] Blood Pressure 137/69 119/61 120/71 O2 Sat by Pulse Oximetry O2 Sat by Pulse 97 Oximetry [ Anterior Bilateral Throughout] O2 Sat by Pulse Oximetry [ Assessment] O2 Sat by Pulse 97 Oximetry [ Throughout] 03/13/19 03/13/19 03/13/19 10:15 10:30 10:45 Temperature Pulse Rate 109 H 109 H 109 H Pulse Rate [ Anterior Bilateral Throughout] Pulse Rate [ Brachial] Pulse Rate [ From Monitor] Pulse Rate [ Throughout] Respiratory Rate Respiratory Rate [Anterior Bilateral Throughout] Respiratory Rate [ Throughout] Blood Pressure 118/68 123/67 123/67 O2 Sat by Pulse Oximetry O2 Sat by Pulse Oximetry [ Anterior Bilateral Throughout] O2 Sat by Pulse Oximetry [ Assessment] O2 Sat by Pulse Oximetry [ Throughout] 03/13/19 03/13/19 03/13/19 11:00 11:15 11:30 Temperature Pulse Rate 89 89 88 Pulse Rate [ Anterior Bilateral Throughout] Pulse Rate [ Brachial] Pulse Rate [ From Monitor] Pulse Rate [ Throughout] Respiratory Rate Respiratory Rate [Anterior Bilateral Throughout] Respiratory Rate [ Throughout] Blood Pressure 120/58 124/58 126/63 O2 Sat by Pulse Oximetry O2 Sat by Pulse Oximetry [ Anterior Bilateral Throughout] O2 Sat by Pulse Oximetry [ Assessment] O2 Sat by Pulse Oximetry [ Throughout] 03/13/19 11:45 Temperature Pulse Rate 109 H Pulse Rate [ Anterior Bilateral Throughout] Pulse Rate [ Brachial] Pulse Rate [ From Monitor] Pulse Rate [ Throughout] Respiratory Rate Respiratory Rate [Anterior Bilateral Throughout] Respiratory Rate [ Throughout] Blood Pressure 127/65 O2 Sat by Pulse Oximetry O2 Sat by Pulse Oximetry [ Anterior Bilateral Throughout] O2 Sat by Pulse Oximetry [ Assessment] O2 Sat by Pulse Oximetry [ Throughout] Constitutional: no acute distress, other (critically ill on vent sp trach) Eyes: non-icteric Effort: normal Ascultation: Bilateral: diminished breath sounds, other (coarse BS bilaterally) Percussion: Bilateral: not dull Cardiovascular: regular rate and rhythm (no mrg) Gastrointestinal: normoactive bowel sounds, soft, non-tender, non-distended Extremities: no edema, pink and warm Neurologic: other (mild weakness LUE, o/w nonfocal) Psychiatric: mood appropriate, affect normal CBC and BMP: 03/13/19 04:38 03/13/19 04:38 ABG, PT/INR, D-dimer: ABG POC ABG pH 7.483 (7.35-7.45) H 02/27/19 04:35 ABG pH 7.435 pH Units (7.350-7.450) 03/09/19 13:53 POC ABG pCO2 37.5 (35-45) 02/27/19 04:35 ABG pCO2 46.5 mm Hg 03/09/19 13:53 POC ABG pO2 61 (80-105) L 02/27/19 04:35 ABG pO2 80.8 mm Hg (80.0-90.0) 03/09/19 13:53 POC ABG HCO3 28.1 (22-26 mml/L) 02/27/19 04:35 POC ABG Total CO2 29 (23-27mmol/L) 02/27/19 04:35 POC ABG O2 Sat 93 02/27/19 04:35 ABG O2 Saturation 96.5 % (95.0-99.0) 03/09/19 13:53 PT/INR, D-dimer PT 16.3 Sec. (12.2-14.9) H 03/01/19 09:39 INR 1.35 (0.87-1.13) H 03/01/19 09:39 2987.82 ng/mlDDU (0-234) H 02/22/19 05:54 Abnormal lab findings: Abnormal Labs 02/21/19 02/21/19 02/21/19 18:30 18:30 18:30 RBC 3.26 L Hgb 8.8 L Hct 29.0 L MCH 27 L MCHC 30 L RDW 19.1 H Lymph % (Auto) 6.1 L [place] % (Auto) Eos % (Auto) Lymph # 0.4 L Eos # Seg Neutrophils % 86.2 H PT INR D-Dimer POC ABG pH POC ABG pCO2 POC ABG pO2 ABG HCO3 ABG Base Excess ABG Hemoglobin Oxyhemoglobin Sodium 133 L Potassium 3.3 L Chloride 93.1 L Carbon Dioxide 33 H BUN Creatinine Glucose 161 H POC Glucose Phosphorus ALT Alkaline Phosphatase 136 H Total Creatine Kinase 37 L CK-MB (CK-2) Rel Index Troponin T 0.192 H* Albumin 2.4 L LDL Cholesterol Direct 36 L PTH Intact Salicylates Acetaminophen Crossmatch 02/21/19 02/21/19 02/21/19 18:42 20:04 20:04 RBC Hgb Hct MCH MCHC RDW Lymph % (Auto) [place] % (Auto) Eos % (Auto) Lymph # Eos # Seg Neutrophils % PT INR D-Dimer POC ABG pH POC ABG pCO2 56.7 H POC ABG pO2 291 H ABG HCO3 ABG Base Excess ABG Hemoglobin Oxyhemoglobin Sodium Potassium Chloride Carbon Dioxide BUN Creatinine Glucose POC Glucose Phosphorus ALT Alkaline Phosphatase Total Creatine Kinase CK-MB (CK-2) Rel Index Troponin T Albumin LDL Cholesterol Direct PTH Intact Salicylates < 0.3 L Acetaminophen < 5.0 L Crossmatch 02/21/19 02/22/19 02/22/19 22:35 03:42 03:42 RBC 3.20 L Hgb 8.8 L Hct 27.6 L MCH MCHC RDW 18.9 H Lymph % (Auto) 7.4 L [place] % (Auto) Eos % (Auto) Lymph # 0.7 L Eos # Seg Neutrophils % 84.7 H PT INR D-Dimer POC ABG pH POC ABG pCO2 POC ABG pO2 ABG HCO3 ABG Base Excess ABG Hemoglobin Oxyhemoglobin Sodium 134 L Potassium 2.6 L* D Chloride Carbon Dioxide BUN Creatinine Glucose POC Glucose Phosphorus ALT Alkaline Phosphatase Total Creatine Kinase CK-MB (CK-2) Rel Index 5.2 H Troponin T 0.202 H* Albumin LDL Cholesterol Direct PTH Intact Salicylates Acetaminophen Crossmatch 02/22/19 02/22/19 02/22/19 03:42 05:54 09:04 RBC Hgb Hct MCH MCHC RDW Lymph % (Auto) [place] % (Auto) Eos % (Auto) Lymph # Eos # Seg Neutrophils % PT INR D-Dimer 2987.82 H POC ABG pH 7.451 H POC ABG pCO2 POC ABG pO2 ABG HCO3 ABG Base Excess ABG Hemoglobin Oxyhemoglobin Sodium Potassium Chloride Carbon Dioxide BUN Creatinine Glucose POC Glucose Phosphorus ALT Alkaline Phosphatase Total Creatine Kinase CK-MB (CK-2) Rel Index 5.7 H Troponin T 0.193 H* Albumin LDL Cholesterol Direct PTH Intact Salicylates Acetaminophen Crossmatch 02/22/19 02/22/19 02/23/19 10:36 23:56 00:52 RBC Hgb Hct MCH MCHC RDW Lymph % (Auto) [place] % (Auto) Eos % (Auto) Lymph # Eos # Seg Neutrophils % PT INR D-Dimer POC ABG pH POC ABG pCO2 POC ABG pO2 ABG HCO3 ABG Base Excess ABG Hemoglobin Oxyhemoglobin Sodium Potassium 3.1 L Chloride Carbon Dioxide BUN Creatinine Glucose POC Glucose 58 L 111 H Phosphorus ALT Alkaline Phosphatase Total Creatine Kinase CK-MB (CK-2) Rel Index Troponin T Albumin LDL Cholesterol Direct PTH Intact Salicylates Acetaminophen Crossmatch 02/23/19 02/23/19 02/23/19 05:00 06:35 14:26 RBC Hgb Hct MCH MCHC RDW Lymph % (Auto) [place] % (Auto) Eos % (Auto) Lymph # Eos # Seg Neutrophils % PT INR D-Dimer POC ABG pH POC ABG pCO2 POC ABG pO2 ABG HCO3 ABG Base Excess ABG Hemoglobin Oxyhemoglobin Sodium 135 L Potassium 3.1 L Chloride Carbon Dioxide BUN 21 H Creatinine 2.0 H Glucose 57 L POC Glucose 64 L 62 L Phosphorus ALT Alkaline Phosphatase Total Creatine Kinase CK-MB (CK-2) Rel Index Troponin T Albumin LDL Cholesterol Direct PTH Intact Salicylates Acetaminophen Crossmatch 02/24/19 02/24/19 02/24/19 02:11 04:12 04:55 RBC 2.84 L Hgb 7.8 L Hct 24.5 L MCH MCHC RDW 19.5 H Lymph % (Auto) [place] % (Auto) Eos % (Auto) Lymph # Eos # Seg Neutrophils % PT INR D-Dimer POC ABG pH 7.511 H POC ABG pCO2 33.9 L POC ABG pO2 62 L ABG HCO3 ABG Base Excess ABG Hemoglobin Oxyhemoglobin Sodium Potassium Chloride Carbon Dioxide BUN Creatinine Glucose POC Glucose 69 L Phosphorus ALT Alkaline Phosphatase Total Creatine Kinase CK-MB (CK-2) Rel Index Troponin T Albumin LDL Cholesterol Direct PTH Intact Salicylates Acetaminophen Crossmatch 02/24/19 02/24/19 02/25/19 04:55 05:41 04:45 RBC Hgb Hct MCH MCHC RDW Lymph % (Auto) [place] % (Auto) Eos % (Auto) Lymph # Eos # Seg Neutrophils % PT INR D-Dimer POC ABG pH 7.466 H POC ABG pCO2 POC ABG pO2 75 L ABG HCO3 ABG Base Excess ABG Hemoglobin Oxyhemoglobin Sodium Potassium Chloride Carbon Dioxide BUN Creatinine 1.8 H Glucose 73 L POC Glucose 127 H Phosphorus ALT Alkaline Phosphatase Total Creatine Kinase CK-MB (CK-2) Rel Index Troponin T Albumin LDL Cholesterol Direct PTH Intact Salicylates Acetaminophen Crossmatch 02/25/19 02/25/19 02/26/19 16:34 21:33 03:45 RBC 2.96 L Hgb 8.0 L Hct 25.8 L MCH 27 L MCHC 31 L RDW 20.0 H Lymph % (Auto) [place] % (Auto) Eos % (Auto) Lymph # Eos # Seg Neutrophils % PT INR D-Dimer POC ABG pH POC ABG pCO2 POC ABG pO2 ABG HCO3 ABG Base Excess ABG Hemoglobin Oxyhemoglobin Sodium Potassium Chloride Carbon Dioxide BUN Creatinine Glucose POC Glucose 141 H 106 H Phosphorus ALT Alkaline Phosphatase Total Creatine Kinase CK-MB (CK-2) Rel Index Troponin T Albumin LDL Cholesterol Direct PTH Intact Salicylates Acetaminophen Crossmatch 02/26/19 02/26/19 02/26/19 03:45 04:13 07:53 RBC Hgb Hct MCH MCHC RDW Lymph % (Auto) [place] % (Auto) Eos % (Auto) Lymph # Eos # Seg Neutrophils % PT INR D-Dimer POC ABG pH 7.470 H POC ABG pCO2 POC ABG pO2 ABG HCO3 ABG Base Excess ABG Hemoglobin Oxyhemoglobin Sodium Potassium Chloride Carbon Dioxide BUN Creatinine 1.8 H Glucose POC Glucose 110 H Phosphorus ALT Alkaline Phosphatase Total Creatine Kinase CK-MB (CK-2) Rel Index Troponin T Albumin LDL Cholesterol Direct PTH Intact Salicylates Acetaminophen Crossmatch 02/26/19 02/26/19 02/27/19 11:56 17:43 00:12 RBC Hgb Hct MCH MCHC RDW Lymph % (Auto) [place] % (Auto) Eos % (Auto) Lymph # Eos # Seg Neutrophils % PT INR D-Dimer POC ABG pH POC ABG pCO2 POC ABG pO2 ABG HCO3 ABG Base Excess ABG Hemoglobin Oxyhemoglobin Sodium Potassium Chloride Carbon Dioxide BUN Creatinine Glucose POC Glucose 112 H 127 H 127 H Phosphorus ALT Alkaline Phosphatase Total Creatine Kinase CK-MB (CK-2) Rel Index Troponin T Albumin LDL Cholesterol Direct PTH Intact Salicylates Acetaminophen Crossmatch 02/27/19 02/27/19 02/27/19 04:35 13:15 18:02 RBC Hgb Hct MCH MCHC RDW Lymph % (Auto) [place] % (Auto) Eos % (Auto) Lymph # Eos # Seg Neutrophils % PT INR D-Dimer POC ABG pH 7.483 H POC ABG pCO2 POC ABG pO2 61 L ABG HCO3 ABG Base Excess ABG Hemoglobin Oxyhemoglobin Sodium Potassium Chloride Carbon Dioxide BUN Creatinine Glucose POC Glucose 143 H 106 H Phosphorus ALT Alkaline Phosphatase Total Creatine Kinase CK-MB (CK-2) Rel Index Troponin T Albumin LDL Cholesterol Direct PTH Intact Salicylates Acetaminophen Crossmatch 02/28/19 02/28/19 02/28/19 05:50 11:59 17:52 RBC Hgb Hct MCH MCHC RDW Lymph % (Auto) [place] % (Auto) Eos % (Auto) Lymph # Eos # Seg Neutrophils % PT INR D-Dimer POC ABG pH POC ABG pCO2 POC ABG pO2 ABG HCO3 ABG Base Excess ABG Hemoglobin Oxyhemoglobin Sodium Potassium Chloride Carbon Dioxide BUN Creatinine Glucose POC Glucose 134 H 128 H 142 H Phosphorus ALT Alkaline Phosphatase Total Creatine Kinase CK-MB (CK-2) Rel Index Troponin T Albumin LDL Cholesterol Direct PTH Intact Salicylates Acetaminophen Crossmatch 02/28/19 03/01/19 03/01/19 23:13 05:40 09:39 RBC Hgb Hct MCH MCHC RDW Lymph % (Auto) [place] % (Auto) Eos % (Auto) Lymph # Eos # Seg Neutrophils % PT 16.3 H INR 1.35 H D-Dimer POC ABG pH POC ABG pCO2 POC ABG pO2 ABG HCO3 ABG Base Excess ABG Hemoglobin Oxyhemoglobin Sodium Potassium Chloride Carbon Dioxide BUN Creatinine Glucose POC Glucose 112 H 111 H Phosphorus ALT Alkaline Phosphatase Total Creatine Kinase CK-MB (CK-2) Rel Index Troponin T Albumin LDL Cholesterol Direct PTH Intact Salicylates Acetaminophen Crossmatch 03/01/19 03/01/19 03/01/19 11:56 13:54 17:59 RBC Hgb Hct MCH MCHC RDW Lymph % (Auto) [place] % (Auto) Eos % (Auto) Lymph # Eos # Seg Neutrophils % PT INR D-Dimer POC ABG pH POC ABG pCO2 POC ABG pO2 ABG HCO3 ABG Base Excess ABG Hemoglobin Oxyhemoglobin Sodium Potassium Chloride Carbon Dioxide BUN 33 H Creatinine 2.8 H D Glucose 176 H POC Glucose 199 H 147 H Phosphorus ALT Alkaline Phosphatase Total Creatine Kinase CK-MB (CK-2) Rel Index Troponin T Albumin LDL Cholesterol Direct PTH Intact Salicylates Acetaminophen Crossmatch 03/02/19 03/02/19 03/02/19 05:15 05:15 05:15 RBC 2.73 L Hgb 7.4 L Hct 23.0 L MCH 27 L MCHC RDW 19.9 H Lymph % (Auto) [place] % (Auto) 7.9 H Eos % (Auto) 7.6 H Lymph # 1.0 L Eos # 0.5 H Seg Neutrophils % PT INR D-Dimer POC ABG pH POC ABG pCO2 POC ABG pO2 ABG HCO3 ABG Base Excess ABG Hemoglobin Oxyhemoglobin Sodium Potassium Chloride Carbon Dioxide BUN 43 H Creatinine 3.2 H Glucose POC Glucose Phosphorus 2.30 L ALT Alkaline Phosphatase Total Creatine Kinase CK-MB (CK-2) Rel Index Troponin T Albumin LDL Cholesterol Direct PTH Intact 267.6 H Salicylates Acetaminophen Crossmatch 03/02/19 03/02/19 03/03/19 12:32 18:20 13:30 RBC Hgb Hct MCH MCHC RDW Lymph % (Auto) [place] % (Auto) Eos % (Auto) Lymph # Eos # Seg Neutrophils % PT INR D-Dimer POC ABG pH POC ABG pCO2 POC ABG pO2 ABG HCO3 ABG Base Excess ABG Hemoglobin Oxyhemoglobin Sodium Potassium Chloride 97.3 L Carbon Dioxide BUN 26 H Creatinine 2.2 H Glucose 73 L POC Glucose 111 H 156 H Phosphorus ALT Alkaline Phosphatase Total Creatine Kinase CK-MB (CK-2) Rel Index Troponin T Albumin LDL Cholesterol Direct PTH Intact Salicylates Acetaminophen Crossmatch 03/04/19 03/04/19 03/04/19 00:02 05:37 05:40 RBC 2.63 L Hgb 7.2 L Hct 22.2 L MCH MCHC RDW 20.2 H Lymph % (Auto) 10.5 L [place] % (Auto) Eos % (Auto) 4.6 H Lymph # 0.7 L Eos # Seg Neutrophils % 76.9 H PT INR D-Dimer POC ABG pH POC ABG pCO2 POC ABG pO2 ABG HCO3 ABG Base Excess ABG Hemoglobin Oxyhemoglobin Sodium Potassium Chloride Carbon Dioxide BUN Creatinine Glucose POC Glucose 136 H 123 H Phosphorus ALT Alkaline Phosphatase Total Creatine Kinase CK-MB (CK-2) Rel Index Troponin T Albumin LDL Cholesterol Direct PTH Intact Salicylates Acetaminophen Crossmatch 03/04/19 03/04/19 03/04/19 05:40 11:39 23:20 RBC Hgb Hct MCH MCHC RDW Lymph % (Auto) [place] % (Auto) Eos % (Auto) Lymph # Eos # Seg Neutrophils % PT INR D-Dimer POC ABG pH POC ABG pCO2 POC ABG pO2 ABG HCO3 ABG Base Excess ABG Hemoglobin Oxyhemoglobin Sodium Potassium Chloride Carbon Dioxide BUN 34 H Creatinine 2.7 H Glucose 114 H POC Glucose 175 H 151 H Phosphorus ALT Alkaline Phosphatase Total Creatine Kinase CK-MB (CK-2) Rel Index Troponin T Albumin LDL Cholesterol Direct PTH Intact Salicylates Acetaminophen Crossmatch 03/05/19 03/05/19 03/05/19 05:37 12:08 17:11 RBC Hgb Hct MCH MCHC RDW Lymph % (Auto) [place] % (Auto) Eos % (Auto) Lymph # Eos # Seg Neutrophils % PT INR D-Dimer POC ABG pH POC ABG pCO2 POC ABG pO2 ABG HCO3 ABG Base Excess ABG Hemoglobin Oxyhemoglobin Sodium Potassium Chloride Carbon Dioxide BUN Creatinine Glucose POC Glucose 134 H 135 H 135 H Phosphorus ALT Alkaline Phosphatase Total Creatine Kinase CK-MB (CK-2) Rel Index Troponin T Albumin LDL Cholesterol Direct PTH Intact Salicylates Acetaminophen Crossmatch 03/06/19 03/06/19 03/06/19 00:16 13:05 18:09 RBC Hgb Hct MCH MCHC RDW Lymph % (Auto) [place] % (Auto) Eos % (Auto) Lymph # Eos # Seg Neutrophils % PT INR D-Dimer POC ABG pH POC ABG pCO2 POC ABG pO2 ABG HCO3 ABG Base Excess ABG Hemoglobin Oxyhemoglobin Sodium Potassium Chloride Carbon Dioxide BUN Creatinine Glucose POC Glucose 117 H 113 H 131 H Phosphorus ALT Alkaline Phosphatase Total Creatine Kinase CK-MB (CK-2) Rel Index Troponin T Albumin LDL Cholesterol Direct PTH Intact Salicylates Acetaminophen Crossmatch 03/07/19 03/08/19 03/08/19 05:25 05:33 16:00 RBC 2.44 L Hgb 6.6 L Hct 20.8 L MCH 27 L MCHC RDW 19.2 H Lymph % (Auto) [place] % (Auto) Eos % (Auto) 8.6 H Lymph # 0.8 L Eos # 0.5 H Seg Neutrophils % 70.7 H PT INR D-Dimer POC ABG pH POC ABG pCO2 POC ABG pO2 ABG HCO3 ABG Base Excess ABG Hemoglobin Oxyhemoglobin Sodium Potassium Chloride Carbon Dioxide BUN Creatinine Glucose POC Glucose 106 H 108 H Phosphorus ALT Alkaline Phosphatase Total Creatine Kinase CK-MB (CK-2) Rel Index Troponin T Albumin LDL Cholesterol Direct PTH Intact Salicylates Acetaminophen Crossmatch 03/08/19 03/08/19 03/08/19 16:00 18:38 Unknown RBC Hgb Hct MCH MCHC RDW Lymph % (Auto) [place] % (Auto) Eos % (Auto) Lymph # Eos # Seg Neutrophils % PT INR D-Dimer POC ABG pH POC ABG pCO2 POC ABG pO2 ABG HCO3 ABG Base Excess ABG Hemoglobin Oxyhemoglobin Sodium Potassium 5.4 H D Chloride Carbon Dioxide BUN 47 H Creatinine 2.6 H Glucose POC Glucose 123 H Phosphorus ALT < 5 L Alkaline Phosphatase Total Creatine Kinase CK-MB (CK-2) Rel Index Troponin T Albumin 2.2 L LDL Cholesterol Direct PTH Intact Salicylates Acetaminophen Crossmatch See Detail 03/09/19 03/09/19 03/09/19 10:48 12:28 13:53 RBC 2.85 L Hgb 7.7 L Hct 24.2 L MCH 27 L MCHC RDW 18.7 H Lymph % (Auto) [place] % (Auto) Eos % (Auto) Lymph # Eos # Seg Neutrophils % PT INR D-Dimer POC ABG pH POC ABG pCO2 POC ABG pO2 ABG HCO3 30.5 H ABG Base Excess 5.6 H ABG Hemoglobin 8.1 L Oxyhemoglobin 93.8 L Sodium Potassium Chloride Carbon Dioxide BUN Creatinine Glucose POC Glucose 114 H Phosphorus ALT Alkaline Phosphatase Total Creatine Kinase CK-MB (CK-2) Rel Index Troponin T Albumin LDL Cholesterol Direct PTH Intact Salicylates Acetaminophen Crossmatch 03/09/19 03/09/19 03/10/19 17:58 23:53 12:01 RBC Hgb Hct MCH MCHC RDW Lymph % (Auto) [place] % (Auto) Eos % (Auto) Lymph # Eos # Seg Neutrophils % PT INR D-Dimer POC ABG pH POC ABG pCO2 POC ABG pO2 ABG HCO3 ABG Base Excess ABG Hemoglobin Oxyhemoglobin Sodium Potassium Chloride Carbon Dioxide BUN Creatinine Glucose POC Glucose 108 H 128 H 144 H Phosphorus ALT Alkaline Phosphatase Total Creatine Kinase CK-MB (CK-2) Rel Index Troponin T Albumin LDL Cholesterol Direct PTH Intact Salicylates Acetaminophen Crossmatch 03/10/19 03/11/19 03/11/19 16:50 00:24 05:02 RBC Hgb Hct MCH MCHC RDW Lymph % (Auto) [place] % (Auto) Eos % (Auto) Lymph # Eos # Seg Neutrophils % PT INR D-Dimer POC ABG pH POC ABG pCO2 POC ABG pO2 ABG HCO3 ABG Base Excess ABG Hemoglobin Oxyhemoglobin Sodium Potassium Chloride Carbon Dioxide BUN Creatinine Glucose POC Glucose 147 H 123 H 120 H Phosphorus ALT Alkaline Phosphatase Total Creatine Kinase CK-MB (CK-2) Rel Index Troponin T Albumin LDL Cholesterol Direct PTH Intact Salicylates Acetaminophen Crossmatch 03/11/19 03/11/19 03/11/19 11:56 12:20 18:37 RBC Hgb Hct MCH MCHC RDW Lymph % (Auto) [place] % (Auto) Eos % (Auto) Lymph # Eos # Seg Neutrophils % PT INR D-Dimer POC ABG pH POC ABG pCO2 POC ABG pO2 ABG HCO3 ABG Base Excess ABG Hemoglobin Oxyhemoglobin Sodium Potassium 5.2 H Chloride Carbon Dioxide BUN Creatinine Glucose POC Glucose 123 H 125 H Phosphorus ALT Alkaline Phosphatase Total Creatine Kinase CK-MB (CK-2) Rel Index Troponin T Albumin LDL Cholesterol Direct PTH Intact Salicylates Acetaminophen Crossmatch 03/11/19 03/12/19 03/12/19 22:52 12:04 18:25 RBC Hgb Hct MCH MCHC RDW Lymph % (Auto) [place] % (Auto) Eos % (Auto) Lymph # Eos # Seg Neutrophils % PT INR D-Dimer POC ABG pH POC ABG pCO2 POC ABG pO2 ABG HCO3 ABG Base Excess ABG Hemoglobin Oxyhemoglobin Sodium Potassium Chloride Carbon Dioxide BUN Creatinine Glucose POC Glucose 110 H 106 H 118 H Phosphorus ALT Alkaline Phosphatase Total Creatine Kinase CK-MB (CK-2) Rel Index Troponin T Albumin LDL Cholesterol Direct PTH Intact Salicylates Acetaminophen Crossmatch 03/12/19 03/13/19 03/13/19 23:36 04:38 04:38 RBC 2.95 L Hgb 7.9 L Hct 24.9 L MCH 27 L MCHC RDW 19.9 H Lymph % (Auto) 11.1 L [place] % (Auto) 8.1 H Eos % (Auto) 4.4 H Lymph # 0.9 L Eos # Seg Neutrophils % 75.4 H PT INR D-Dimer POC ABG pH POC ABG pCO2 POC ABG pO2 ABG HCO3 ABG Base Excess ABG Hemoglobin Oxyhemoglobin Sodium 136 L Potassium 5.1 H Chloride 93.8 L Carbon Dioxide BUN 48 H Creatinine 2.7 H Glucose 102 H POC Glucose 115 H Phosphorus ALT < 5 L Alkaline Phosphatase 143 H Total Creatine Kinase CK-MB (CK-2) Rel Index Troponin T Albumin 2.5 L LDL Cholesterol Direct PTH Intact Salicylates Acetaminophen Crossmatch 03/13/19 05:33 RBC Hgb Hct MCH MCHC RDW Lymph % (Auto) [place] % (Auto) Eos % (Auto) Lymph # Eos # Seg Neutrophils % PT INR D-Dimer POC ABG pH POC ABG pCO2 POC ABG pO2 ABG HCO3 ABG Base Excess ABG Hemoglobin Oxyhemoglobin Sodium Potassium Chloride Carbon Dioxide BUN Creatinine Glucose POC Glucose 140 H Phosphorus ALT Alkaline Phosphatase Total Creatine Kinase CK-MB (CK-2) Rel Index Troponin T Albumin LDL Cholesterol Direct PTH Intact Salicylates Acetaminophen Crossmatch
[2019-03-13] MEDS: HEPARIN 5,000 UNIT/1 ML VIAL SUB-Q SCH ×2 (13:16→21:04)
[2019-03-13] MEDS: FAMOTIDINE 20 MG TAB PO SCH (13:16)
[2019-03-13] MEDS: SERTRALINE 100 MG TAB PO SCH (13:16)
[2019-03-13] MEDS: risperiDONE 1 MG TAB PO SCH (13:16)
[2019-03-14] MEDS: INSULIN REGULAR, HUMAN 100 UNITS/1 ML SUB-Q SCH ×4 (00:12→18:15)
[2019-03-14] MEDS: IPRATROPIUM/ALBUTEROL SULFATE 3 ML AMPUL.NEB IH SCH ×3 (08:49→19:55)
[2019-03-14] MEDS: FAMOTIDINE 20 MG TAB PO SCH (10:24)
[2019-03-14] MEDS: risperiDONE 1 MG TAB PO SCH (10:24)
[2019-03-14] MEDS: METOPROLOL TARTRATE 25 MG TAB PO SCH ×3 (10:24→21:16)
[2019-03-14] MEDS: HEPARIN 5,000 UNIT/1 ML VIAL SUB-Q SCH ×2 (10:24→21:16)
[2019-03-14] MEDS: SERTRALINE 100 MG TAB PO SCH (10:24)
[2019-03-14] MEDS: ACETAMINOPHEN 325 MG TAB PO PRN ×2 (12:26→21:16)
--- NOTE | 2019-03-14 12:28 | Progress Note ---
Assessment and Plan Assessment: * End stage renal disease (outpatient TTS schedule) * Acute hypoxic respiratory failure on mechanical ventilation * Atrial fibrillation * History of CVA * Anemia secondary to ESRD * Secondary hyperparathyroidism Plan * Continue HD MWF schedule for now while inpatient * UF as tolerated; reviewed pulmonary notes and CXR * AVG in use. Appreciate vascular assistance to remove Permacath * Empiric abx per ID/primary team * Nutrition per primary team * Dose medications for renal function * Epogen TID Overall prognosis remains poor; will continue to follow for ESRD needs while inpatient. Subjective Date of service: 03/14/19 Principal diagnosis: respiratory failure Interval history: no acute events Objective - Exam Narrative Exam: General appearance: chronically ill, intubated, frail EENT: normocephalic Neck: ETT in place Respiratory: coarse mechanical breath sounds bilaterally Cardiology: regular, S1S2, no edema Gastrointestinal: PEG and colostomy noted Integumentary: warm and dry Psychiatric: unable to assess - Vital Signs Vital signs: Vital Signs - 12hr 03/14/19 03/14/19 03/14/19 00:30 00:45 01:00 Temperature Pulse Rate 109 H 111 H 116 H Pulse Rate [ Anterior Bilateral Throughout] Pulse Rate [ From Monitor] Respiratory 21 22 19 Rate Respiratory Rate [Anterior Bilateral Throughout] Blood Pressure 131/70 144/71 142/66 O2 Sat by Pulse 99 99 99 Oximetry O2 Sat by Pulse Oximetry [ Assessment] 03/14/19 03/14/19 03/14/19 01:10 01:15 01:30 Temperature Pulse Rate 109 H 108 H Pulse Rate [ Anterior Bilateral Throughout] Pulse Rate [ From Monitor] Respiratory 21 25 H Rate Respiratory Rate [Anterior Bilateral Throughout] Blood Pressure 132/67 130/66 O2 Sat by Pulse 100 100 Oximetry O2 Sat by Pulse 96 Oximetry [ Assessment] 03/14/19 03/14/19 03/14/19 01:45 02:00 02:15 Temperature Pulse Rate 112 H 99 H 112 H Pulse Rate [ Anterior Bilateral Throughout] Pulse Rate [ From Monitor] Respiratory 23 24 22 Rate Respiratory Rate [Anterior Bilateral Throughout] Blood Pressure 137/70 135/66 122/68 O2 Sat by Pulse 100 100 100 Oximetry O2 Sat by Pulse Oximetry [ Assessment] 03/14/19 03/14/19 03/14/19 02:30 02:45 03:00 Temperature Pulse Rate 112 H 110 H 112 H Pulse Rate [ Anterior Bilateral Throughout] Pulse Rate [ From Monitor] Respiratory 21 25 H 25 H Rate Respiratory Rate [Anterior Bilateral Throughout] Blood Pressure 133/70 130/71 125/67 O2 Sat by Pulse 100 100 100 Oximetry O2 Sat by Pulse Oximetry [ Assessment] 03/14/19 03/14/19 03/14/19 03:09 03:15 03:30 Temperature 98.9 F Pulse Rate 102 H 112 H Pulse Rate [ Anterior Bilateral Throughout] Pulse Rate [ From Monitor] Respiratory 20 21 Rate Respiratory Rate [Anterior Bilateral Throughout] Blood Pressure 148/72 129/71 O2 Sat by Pulse 100 100 Oximetry O2 Sat by Pulse Oximetry [ Assessment] 03/14/19 03/14/19 03/14/19 03:45 04:00 04:15 Temperature Pulse Rate 107 H 113 H 111 H Pulse Rate [ Anterior Bilateral Throughout] Pulse Rate [ From Monitor] Respiratory 17 22 17 Rate Respiratory Rate [Anterior Bilateral Throughout] Blood Pressure 127/57 125/68 123/64 O2 Sat by Pulse 100 100 100 Oximetry O2 Sat by Pulse Oximetry [ Assessment] 03/14/19 03/14/19 03/14/19 04:30 04:45 05:00 Temperature Pulse Rate 110 H 110 H 111 H Pulse Rate [ Anterior Bilateral Throughout] Pulse Rate [ From Monitor] Respiratory 21 18 17 Rate Respiratory Rate [Anterior Bilateral Throughout] Blood Pressure 130/65 131/63 124/66 O2 Sat by Pulse 100 100 100 Oximetry O2 Sat by Pulse Oximetry [ Assessment] 03/14/19 03/14/19 03/14/19 05:15 05:30 05:45 Temperature Pulse Rate 108 H 112 H 111 H Pulse Rate [ Anterior Bilateral Throughout] Pulse Rate [ From Monitor] Respiratory 18 18 23 Rate Respiratory Rate [Anterior Bilateral Throughout] Blood Pressure 125/62 135/68 129/72 O2 Sat by Pulse 100 100 100 Oximetry O2 Sat by Pulse Oximetry [ Assessment] 03/14/19 03/14/19 03/14/19 06:00 06:15 06:30 Temperature Pulse Rate 124 H 112 H 111 H Pulse Rate [ Anterior Bilateral Throughout] Pulse Rate [ From Monitor] Respiratory 12 22 27 H Rate Respiratory Rate [Anterior Bilateral Throughout] Blood Pressure 140/63 123/64 130/67 O2 Sat by Pulse 78 L 99 98 Oximetry O2 Sat by Pulse Oximetry [ Assessment] 03/14/19 03/14/19 03/14/19 06:45 07:00 07:15 Temperature Pulse Rate 111 H 111 H 111 H Pulse Rate [ Anterior Bilateral Throughout] Pulse Rate [ From Monitor] Respiratory 27 H 24 17 Rate Respiratory Rate [Anterior Bilateral Throughout] Blood Pressure 134/64 141/73 145/65 O2 Sat by Pulse 98 98 99 Oximetry O2 Sat by Pulse Oximetry [ Assessment] 03/14/19 03/14/19 03/14/19 07:30 07:45 08:00 Temperature 99.0 F Pulse Rate 111 H 112 H 119 H Pulse Rate [ 137 H Anterior Bilateral Throughout] Pulse Rate [ 109 H From Monitor] Respiratory 17 18 19 Rate Respiratory 15 Rate [Anterior Bilateral Throughout] Blood Pressure 148/67 137/76 150/72 O2 Sat by Pulse 95 98 97 Oximetry O2 Sat by Pulse Oximetry [ Assessment] 03/14/19 03/14/19 03/14/19 08:15 08:31 08:45 Temperature Pulse Rate 120 H 113 H 113 H Pulse Rate [ Anterior Bilateral Throughout] Pulse Rate [ From Monitor] Respiratory 16 21 22 Rate Respiratory Rate [Anterior Bilateral Throughout] Blood Pressure 143/74 143/74 143/74 O2 Sat by Pulse 97 98 98 Oximetry O2 Sat by Pulse Oximetry [ Assessment] 03/14/19 03/14/19 03/14/19 08:51 08:53 09:00 Temperature Pulse Rate 120 H Pulse Rate [ Anterior Bilateral Throughout] Pulse Rate [ From Monitor] Respiratory 28 H Rate Respiratory Rate [Anterior Bilateral Throughout] Blood Pressure 138/71 O2 Sat by Pulse 98 100 Oximetry O2 Sat by Pulse 98 Oximetry [ Assessment] 03/14/19 03/14/19 03/14/19 09:15 09:31 09:45 Temperature Pulse Rate 121 H 126 H 123 H Pulse Rate [ Anterior Bilateral Throughout] Pulse Rate [ From Monitor] Respiratory 28 H 16 15 Rate Respiratory Rate [Anterior Bilateral Throughout] Blood Pressure 138/71 138/71 138/71 O2 Sat by Pulse 96 95 96 Oximetry O2 Sat by Pulse Oximetry [ Assessment] 03/14/19 03/14/19 03/14/19 10:00 10:15 10:24 Temperature Pulse Rate 123 H 116 H 120 H Pulse Rate [ Anterior Bilateral Throughout] Pulse Rate [ From Monitor] Respiratory 17 14 Rate Respiratory Rate [Anterior Bilateral Throughout] Blood Pressure 152/71 152/71 152/71 O2 Sat by Pulse 100 97 Oximetry O2 Sat by Pulse Oximetry [ Assessment] 03/14/19 03/14/19 03/14/19 10:31 10:45 11:00 Temperature Pulse Rate 122 H 115 H 113 H Pulse Rate [ Anterior Bilateral Throughout] Pulse Rate [ From Monitor] Respiratory 29 H 15 28 H Rate Respiratory Rate [Anterior Bilateral Throughout] Blood Pressure 152/71 152/71 128/61 O2 Sat by Pulse 95 96 98 Oximetry O2 Sat by Pulse Oximetry [ Assessment] 03/14/19 03/14/19 11:15 11:31 Temperature Pulse Rate 113 H 111 H Pulse Rate [ Anterior Bilateral Throughout] Pulse Rate [ From Monitor] Respiratory 29 H 29 H Rate Respiratory Rate [Anterior Bilateral Throughout] Blood Pressure 128/61 128/61 O2 Sat by Pulse 95 96 Oximetry O2 Sat by Pulse Oximetry [ Assessment] - Lab 03/13/19 04:38 03/13/19 04:38 Most recent lab results ABG pH 7.435 pH Units (7.350-7.450) 03/09/19 13:53 ABG pCO2 46.5 mm Hg 03/09/19 13:53 ABG pO2 80.8 mm Hg (80.0-90.0) 03/09/19 13:53 ABG HCO3 30.5 mmol/L (20.0-26.0) H 03/09/19 13:53 ABG O2 Saturation 96.5 % (95.0-99.0) 03/09/19 13:53 Calcium 10.2 mg/dL (8.4-10.2) 03/13/19 04:38 Phosphorus 2.30 mg/dL (2.5-4.5) L 03/02/19 05:15 Magnesium 2.20 mg/dL (1.7-2.3) 03/02/19 05:15 Medications & Allergies - Medications Allergies/Adverse Reactions: Allergies haloperidol [From Haldol] Adverse Reaction (Verified 03/13/18 12:10) Unknown haloperidol lactate [From Haldol] Adverse Reaction (Verified 03/13/18 12:10) Unknown Home Medications: Home Medications Medication Instructions Recorded Confirmed Last Taken Type risperiDONE [RisperDAL] 1 mg PO QAM 03/13/18 02/21/19 Unknown History Sertraline [Zoloft] 100 mg PO QDAY 08/26/18 02/21/19 Unknown History Polyethylene Glycol 3350 [Miralax 17 gm PO QDAY #30 packet 11/05/18 02/21/19 Unknown Rx 3350] Aspirin EC [Halfprin EC] 81 mg PO DAILY #30 11/19/18 02/21/19 Unknown Rx Docusate Sodium [Colace CAP] 100 mg PO BID #60 11/19/18 02/21/19 Unknown Rx Folic Acid [Folvite] 1 mg PO DAILY #30 tab 11/19/18 02/21/19 Unknown Rx Famotidine [Pepcid] 20 mg PO DAILY tablet 12/08/18 02/21/19 Unknown Rx Gabapentin [Neurontin] 100 mg PO QHS capsule 12/08/18 02/21/19 Unknown Rx Metoprolol [Lopressor TAB] 50 mg PO BID 30 Days tablet 12/08/18 02/21/19 Unknown Rx Sevelamer Carbonate [Renvela] 800 mg PO TIDWM tablet 12/08/18 02/21/19 Unknown Rx hydrALAZINE [Apresoline TAB] 100 mg PO Q8HR #120 tablet 12/08/18 02/21/19 Unknown Rx Acetaminophen [Acetaminophen TAB] 650 mg PO Q12H PRN 12/15/18 02/21/19 Unknown History Glucagon,Human Recombinant 1 mg IJ Q15MIN PRN 12/15/18 02/21/19 Unknown History [Glucagon Emergency Kit] Insulin Aspart [NovoLOG 100 See Protocol SQ QWEEK 12/15/18 02/21/19 Unknown History UNITS/ML VIAL] Active Medications: Generic Name Dose Route Start Last Admin Trade Name Freq PRN Reason Stop Dose Admin Acetaminophen 650 mg 02/21/19 22:19 03/14/19 12:26 Tylenol PO 650 mg Q4H PRN Administration Pain MILD(1-3)/Fever >100.5/HILL Albuterol/Ipratropium 1 ampul 02/24/19 20:00 03/14/19 08:49 Duoneb *Not For Prn Use* IH 1 ampul TIDRT SANCHEZ Administration Lipase/Protease/Amylase 1 each 03/05/19 14:04 Pancrejewel Barrientos 10,500 Unit FEEDTUBE PRN PRN For Clogged Feeding Tube Dextrose 50 ml 02/21/19 22:22 03/03/19 17:37 D50w (25gm) Syringe IV 50 ml PRN PRN Administration Hypoglycemia Famotidine 20 mg 02/23/19 10:00 03/14/19 10:24 Pepcid PO 20 mg DAILY SANCHEZ Administration Heparin Sodium (Porcine) 5,000 unit 03/04/19 22:00 03/14/19 10:24 Heparin SUB-Q 5,000 unit Q12HR SANCHEZ Administration Hydrophilic Ointment 1 applic 02/21/19 18:24 03/05/19 08:16 Vaseline Lip Therapy TP 1 applic Q2HR PRN Administration Dry Lips Sodium Chloride 100 mls @ 999 mls/hr 02/26/19 09:00 Nacl 0.9% IV UMA PRN Hypotension Insulin Human Regular 0 units 02/26/19 12:00 03/14/19 12:26 Humulin R SUB-Q Not Given Q6HR [facility] Protocol Metoprolol Tartrate 2.5 mg 02/28/19 12:06 03/01/19 10:32 Lopressor IV 2.5 mg Q4HR PRN Administration Tachycardia Metoprolol Tartrate 25 mg 03/02/19 14:00 03/14/19 10:24 Lopressor PO 25 mg TID SANCHEZ Administration Multi-Ingred Cream/Lotion/Oil/Oint 1 applic 02/21/19 18:24 Artificial Tears Ophth Oint OU Q4HR PRN Dry Eye(s) Ondansetron HCl 4 mg 02/21/19 22:19 03/12/19 21:39 Zofran IV 4 mg Q8H PRN Administration Nausea And Vomiting Risperidone 1 mg 02/25/19 13:00 03/14/19 10:24 Risperdal PO 1 mg DAILY SANCHEZ Administration Scopolamine 1 each 03/13/19 04:00 03/13/19 05:00 Transderm-Scop TD 1 each Q3D SANCHEZ Administration Sertraline HCl 100 mg 02/25/19 13:00 03/14/19 10:24 Zoloft PO 100 mg DAILY SANCHEZ Administration Simple Syrup 15 ml 03/05/19 14:04 Simple Syrup FEEDTUBE PRN PRN Hypoglycemia Simple Syrup 30 ml 03/05/19 14:04 Simple Syrup FEEDTUBE PRN PRN Hypoglycemia Sodium Bicarbonate 325 mg 03/05/19 14:04 Sodium Bicarbonate FEEDTUBE PRN PRN For Clogged Feeding Tube Sodium Chloride 10 ml 02/22/19 10:00 08/24/19 10:24 Sodium Chloride Flush Syringe 10 Ml IV 10 ml BID SANCHEZ Administration Sodium Chloride 10 ml 02/21/19 22:19 02/24/19 22:00 Sodium Chloride Flush Syringe 10 Ml IV 10 ml PRN PRN Administration LINE FLUSH Tramadol HCl 50 mg 03/05/19 10:08 03/12/19 21:39 Ultram PO 50 mg Q6H PRN Administration Pain, Moderate (4-6)
--- NOTE | 2019-03-14 16:26 | Progress Note ---
Assessment and Plan Imp: 1. Acute encephalopathy, probably metabolic or toxic 2. A/C systolic CHF 3. Dilated CMP 4. Pulm HTN 5. ESRD 6. RUL atelectasis, probably mucous plugging -> resolved Rec: 1. Chest PT with Melchor tristan 2. On Tpiece; wean FiO2 to keep sats > 88% 3. Avoid sedatives; resumed psych meds 4. DVT and GI PPx 5. TFs per PEG 6. Vascular eval. done re: LUE AV graft 7. HD per renal 8. Fever noted this AM; repeat blood/sputum cultures, repeat CXR and labs in AM; hold off ABX pending these results and clinical course 9. Complex decision-making 10. Prognosis is poor No family present Subjective Date of service: 03/14/19 Principal diagnosis: respiratory failure Interval history: No events. Mentation near usual poor baseline. Fever this AM. He cannot give history. On 60% FiO2 via Tpiece. Active Medications Acetaminophen (Tylenol) 650 mg PO Q4H PRN PRN Reason: Pain MILD(1-3)/Fever >100.5/HILL Last Admin: 03/14/19 12:26 Dose: 650 mg Documented by: Albuterol/Ipratropium (Duoneb *Not For Prn Use*) 1 ampul IH TIDRT [facility] Last Admin: 03/14/19 15:01 Dose: 1 ampul Documented by: Lipase/Protease/Amylase ([place] 10,500 Unit) 1 each FEEDTUBE PRN PRN PRN Reason: For Clogged Feeding Tube Dextrose (D50w (25gm) Syringe) 50 ml IV PRN PRN PRN Reason: Hypoglycemia Last Admin: 03/03/19 17:37 Dose: 50 ml Documented by: Famotidine (Pepcid) 20 mg PO DAILY [facility] Last Admin: 03/14/19 10:24 Dose: 20 mg Documented by: Heparin Sodium (Porcine) (Heparin) 5,000 unit SUB-Q Q12HR [facility] Last Admin: 03/14/19 10:24 Dose: 5,000 unit Documented by: Hydrophilic Ointment (Vaseline Lip Therapy) 1 applic TP Q2HR PRN PRN Reason: Dry Lips Last Admin: 03/05/19 08:16 Dose: 1 applic Documented by: Sodium Chloride (Nacl 0.9%) 100 mls @ 999 mls/hr IV UMA PRN PRN Reason: Hypotension Insulin Human Regular (Humulin R) 0 units SUB-Q Q6HR [facility]; Protocol Last Admin: 03/14/19 12:26 Dose: Not Given Documented by: Metoprolol Tartrate (Lopressor) 2.5 mg IV Q4HR PRN PRN Reason: Tachycardia Last Admin: 03/01/19 10:32 Dose: 2.5 mg Documented by: Metoprolol Tartrate (Lopressor) 25 mg PO TID [facility] Last Admin: 03/14/19 14:12 Dose: 25 mg Documented by: Multi-Ingred Cream/Lotion/Oil/Oint (Artificial Tears Ophth Oint) 1 applic OU Q4HR PRN PRN Reason: Dry Eye(s) Ondansetron HCl (Zofran) 4 mg IV Q8H PRN PRN Reason: Nausea And Vomiting Last Admin: 03/12/19 21:39 Dose: 4 mg Documented by: Risperidone (Risperdal) 1 mg PO DAILY [facility] Last Admin: 03/14/19 10:24 Dose: 1 mg Documented by: Scopolamine (Transderm-Scop) 1 each TD Q3D [facility] Last Admin: 03/13/19 05:00 Dose: 1 each Documented by: Sertraline HCl (Zoloft) 100 mg PO DAILY [facility] Last Admin: 03/14/19 10:24 Dose: 100 mg Documented by: Simple Syrup (Simple Syrup) 15 ml FEEDTUBE PRN PRN PRN Reason: Hypoglycemia Simple Syrup (Simple Syrup) 30 ml FEEDTUBE PRN PRN PRN Reason: Hypoglycemia Sodium Bicarbonate (Sodium Bicarbonate) 325 mg FEEDTUBE PRN PRN PRN Reason: For Clogged Feeding Tube Sodium Chloride (Sodium Chloride Flush Syringe 10 Ml) 10 ml IV BID [facility] Last Admin: 03/14/19 10:24 Dose: 10 ml Documented by: Sodium Chloride (Sodium Chloride Flush Syringe 10 Ml) 10 ml IV PRN PRN PRN Reason: LINE FLUSH Last Admin: 02/24/19 22:00 Dose: 10 ml Documented by: Tramadol HCl (Ultram) 50 mg PO Q6H PRN PRN Reason: Pain, Moderate (4-6) Last Admin: 03/12/19 21:39 Dose: 50 mg Documented by: Objective Vital Signs - 12hr 08/24/19 08/24/19 08/24/19 04:30 04:45 05:00 Temperature Pulse Rate 110 H 110 H 111 H Pulse Rate [ Anterior Bilateral Throughout] Pulse Rate [ From Monitor] Respiratory 21 18 17 Rate Respiratory Rate [Anterior Bilateral Throughout] Blood Pressure 130/65 131/63 124/66 O2 Sat by Pulse 100 100 100 Oximetry O2 Sat by Pulse Oximetry [ Assessment] 03/14/19 03/14/19 03/14/19 05:15 05:30 05:45 Temperature Pulse Rate 108 H 112 H 111 H Pulse Rate [ Anterior Bilateral Throughout] Pulse Rate [ From Monitor] Respiratory 18 18 23 Rate Respiratory Rate [Anterior Bilateral Throughout] Blood Pressure 125/62 135/68 129/72 O2 Sat by Pulse 100 100 100 Oximetry O2 Sat by Pulse Oximetry [ Assessment] 03/14/19 03/14/19 03/14/19 06:00 06:15 06:30 Temperature Pulse Rate 124 H 112 H 111 H Pulse Rate [ Anterior Bilateral Throughout] Pulse Rate [ From Monitor] Respiratory 12 22 27 H Rate Respiratory Rate [Anterior Bilateral Throughout] Blood Pressure 140/63 123/64 130/67 O2 Sat by Pulse 78 L 99 98 Oximetry O2 Sat by Pulse Oximetry [ Assessment] 03/14/19 03/14/19 03/14/19 06:45 07:00 07:15 Temperature Pulse Rate 111 H 111 H 111 H Pulse Rate [ Anterior Bilateral Throughout] Pulse Rate [ From Monitor] Respiratory 27 H 24 17 Rate Respiratory Rate [Anterior Bilateral Throughout] Blood Pressure 134/64 141/73 145/65 O2 Sat by Pulse 98 98 99 Oximetry O2 Sat by Pulse Oximetry [ Assessment] 03/14/19 03/14/19 03/14/19 07:30 07:45 08:00 Temperature 99.0 F Pulse Rate 111 H 112 H 119 H Pulse Rate [ 137 H Anterior Bilateral Throughout] Pulse Rate [ 109 H From Monitor] Respiratory 17 18 19 Rate Respiratory 15 Rate [Anterior Bilateral Throughout] Blood Pressure 148/67 137/76 150/72 O2 Sat by Pulse 95 98 97 Oximetry O2 Sat by Pulse Oximetry [ Assessment] 03/14/19 03/14/19 03/14/19 08:15 08:31 08:45 Temperature Pulse Rate 120 H 113 H 113 H Pulse Rate [ Anterior Bilateral Throughout] Pulse Rate [ From Monitor] Respiratory 16 21 22 Rate Respiratory Rate [Anterior Bilateral Throughout] Blood Pressure 143/74 143/74 143/74 O2 Sat by Pulse 97 98 98 Oximetry O2 Sat by Pulse Oximetry [ Assessment] 03/14/19 03/14/19 03/14/19 08:51 08:53 09:00 Temperature Pulse Rate 120 H Pulse Rate [ Anterior Bilateral Throughout] Pulse Rate [ From Monitor] Respiratory 28 H Rate Respiratory Rate [Anterior Bilateral Throughout] Blood Pressure 138/71 O2 Sat by Pulse 98 100 Oximetry O2 Sat by Pulse 98 Oximetry [ Assessment] 03/14/19 03/14/19 03/14/19 09:15 09:31 09:45 Temperature Pulse Rate 121 H 126 H 123 H Pulse Rate [ Anterior Bilateral Throughout] Pulse Rate [ From Monitor] Respiratory 28 H 16 15 Rate Respiratory Rate [Anterior Bilateral Throughout] Blood Pressure 138/71 138/71 138/71 O2 Sat by Pulse 96 95 96 Oximetry O2 Sat by Pulse Oximetry [ Assessment] 03/14/19 03/14/19 03/14/19 10:00 10:15 10:24 Temperature Pulse Rate 123 H 116 H 120 H Pulse Rate [ Anterior Bilateral Throughout] Pulse Rate [ From Monitor] Respiratory 17 14 Rate Respiratory Rate [Anterior Bilateral Throughout] Blood Pressure 152/71 152/71 152/71 O2 Sat by Pulse 100 97 Oximetry O2 Sat by Pulse Oximetry [ Assessment] 03/14/19 03/14/19 03/14/19 10:31 10:45 11:00 Temperature Pulse Rate 122 H 115 H 113 H Pulse Rate [ Anterior Bilateral Throughout] Pulse Rate [ From Monitor] Respiratory 29 H 15 28 H Rate Respiratory Rate [Anterior Bilateral Throughout] Blood Pressure 152/71 152/71 128/61 O2 Sat by Pulse 95 96 98 Oximetry O2 Sat by Pulse Oximetry [ Assessment] 03/14/19 03/14/19 03/14/19 11:15 11:31 12:00 Temperature 101.4 F H Pulse Rate 113 H 111 H Pulse Rate [ Anterior Bilateral Throughout] Pulse Rate [ From Monitor] Respiratory 29 H 29 H Rate Respiratory Rate [Anterior Bilateral Throughout] Blood Pressure 128/61 128/61 O2 Sat by Pulse 95 96 Oximetry O2 Sat by Pulse Oximetry [ Assessment] 03/14/19 14:12 Temperature Pulse Rate 111 H Pulse Rate [ Anterior Bilateral Throughout] Pulse Rate [ From Monitor] Respiratory Rate Respiratory Rate [Anterior Bilateral Throughout] Blood Pressure 100/53 O2 Sat by Pulse Oximetry O2 Sat by Pulse Oximetry [ Assessment] Constitutional: no acute distress, asleep Eyes: non-icteric ENT: oropharynx moist Neck: supple Effort: normal Ascultation: Bilateral: other (coarse BS bilaterally) Percussion: Bilateral: not dull Cardiovascular: regular rate and rhythm (no mrg) Gastrointestinal: normoactive bowel sounds, soft, non-tender, non-distended, other (ostomy in place, brown stool) Extremities: no cyanosis, no edema, pink and warm Neurologic: other (mild weakness LUE, o/w nonfocal) Psychiatric: other (unable to assess) CBC and BMP: 03/13/19 04:38 03/13/19 04:38 ABG, PT/INR, D-dimer: ABG POC ABG pH 7.483 (7.35-7.45) H 02/27/19 04:35 ABG pH 7.435 pH Units (7.350-7.450) 03/09/19 13:53 POC ABG pCO2 37.5 (35-45) 02/27/19 04:35 ABG pCO2 46.5 mm Hg 03/09/19 13:53 POC ABG pO2 61 (80-105) L 02/27/19 04:35 ABG pO2 80.8 mm Hg (80.0-90.0) 03/09/19 13:53 POC ABG HCO3 28.1 (22-26 mml/L) 02/27/19 04:35 POC ABG Total CO2 29 (23-27mmol/L) 02/27/19 04:35 POC ABG O2 Sat 93 02/27/19 04:35 ABG O2 Saturation 96.5 % (95.0-99.0) 03/09/19 13:53 PT/INR, D-dimer PT 16.3 Sec. (12.2-14.9) H 03/01/19 09:39 INR 1.35 (0.87-1.13) H 03/01/19 09:39 2987.82 ng/mlDDU (0-234) H 02/22/19 05:54 Abnormal lab findings: Abnormal Labs 02/21/19 02/21/19 02/21/19 18:30 18:30 18:30 RBC 3.26 L Hgb 8.8 L Hct 29.0 L MCH 27 L MCHC 30 L RDW 19.1 H Lymph % (Auto) 6.1 L [place] % (Auto) Eos % (Auto) Lymph # 0.4 L Eos # Seg Neutrophils % 86.2 H PT INR D-Dimer POC ABG pH POC ABG pCO2 POC ABG pO2 ABG HCO3 ABG Base Excess ABG Hemoglobin Oxyhemoglobin Sodium 133 L Potassium 3.3 L Chloride 93.1 L Carbon Dioxide 33 H BUN Creatinine Glucose 161 H POC Glucose Phosphorus ALT Alkaline Phosphatase 136 H Total Creatine Kinase 37 L CK-MB (CK-2) Rel Index Troponin T 0.192 H* Albumin 2.4 L LDL Cholesterol Direct 36 L PTH Intact Salicylates Acetaminophen Crossmatch 02/21/19 02/21/19 02/21/19 18:42 20:04 20:04 RBC Hgb Hct MCH MCHC RDW Lymph % (Auto) [place] % (Auto) Eos % (Auto) Lymph # Eos # Seg Neutrophils % PT INR D-Dimer POC ABG pH POC ABG pCO2 56.7 H POC ABG pO2 291 H ABG HCO3 ABG Base Excess ABG Hemoglobin Oxyhemoglobin Sodium Potassium Chloride Carbon Dioxide BUN Creatinine Glucose POC Glucose Phosphorus ALT Alkaline Phosphatase Total Creatine Kinase CK-MB (CK-2) Rel Index Troponin T Albumin LDL Cholesterol Direct PTH Intact Salicylates < 0.3 L Acetaminophen < 5.0 L Crossmatch 02/21/19 02/22/19 02/22/19 22:35 03:42 03:42 RBC 3.20 L Hgb 8.8 L Hct 27.6 L MCH MCHC RDW 18.9 H Lymph % (Auto) 7.4 L [place] % (Auto) Eos % (Auto) Lymph # 0.7 L Eos # Seg Neutrophils % 84.7 H PT INR D-Dimer POC ABG pH POC ABG pCO2 POC ABG pO2 ABG HCO3 ABG Base Excess ABG Hemoglobin Oxyhemoglobin Sodium 134 L Potassium 2.6 L* D Chloride Carbon Dioxide BUN Creatinine Glucose POC Glucose Phosphorus ALT Alkaline Phosphatase Total Creatine Kinase CK-MB (CK-2) Rel Index 5.2 H Troponin T 0.202 H* Albumin LDL Cholesterol Direct PTH Intact Salicylates Acetaminophen Crossmatch 02/22/19 02/22/19 02/22/19 03:42 05:54 09:04 RBC Hgb Hct MCH MCHC RDW Lymph % (Auto) [place] % (Auto) Eos % (Auto) Lymph # Eos # Seg Neutrophils % PT INR D-Dimer 2987.82 H POC ABG pH 7.451 H POC ABG pCO2 POC ABG pO2 ABG HCO3 ABG Base Excess ABG Hemoglobin Oxyhemoglobin Sodium Potassium Chloride Carbon Dioxide BUN Creatinine Glucose POC Glucose Phosphorus ALT Alkaline Phosphatase Total Creatine Kinase CK-MB (CK-2) Rel Index 5.7 H Troponin T 0.193 H* Albumin LDL Cholesterol Direct PTH Intact Salicylates Acetaminophen Crossmatch 02/22/19 02/22/19 02/23/19 10:36 23:56 00:52 RBC Hgb Hct MCH MCHC RDW Lymph % (Auto) [place] % (Auto) Eos % (Auto) Lymph # Eos # Seg Neutrophils % PT INR D-Dimer POC ABG pH POC ABG pCO2 POC ABG pO2 ABG HCO3 ABG Base Excess ABG Hemoglobin Oxyhemoglobin Sodium Potassium 3.1 L Chloride Carbon Dioxide BUN Creatinine Glucose POC Glucose 58 L 111 H Phosphorus ALT Alkaline Phosphatase Total Creatine Kinase CK-MB (CK-2) Rel Index Troponin T Albumin LDL Cholesterol Direct PTH Intact Salicylates Acetaminophen Crossmatch 02/23/19 02/23/19 02/23/19 05:00 06:35 14:26 RBC Hgb Hct MCH MCHC RDW Lymph % (Auto) [place] % (Auto) Eos % (Auto) Lymph # Eos # Seg Neutrophils % PT INR D-Dimer POC ABG pH POC ABG pCO2 POC ABG pO2 ABG HCO3 ABG Base Excess ABG Hemoglobin Oxyhemoglobin Sodium 135 L Potassium 3.1 L Chloride Carbon Dioxide BUN 21 H Creatinine 2.0 H Glucose 57 L POC Glucose 64 L 62 L Phosphorus ALT Alkaline Phosphatase Total Creatine Kinase CK-MB (CK-2) Rel Index Troponin T Albumin LDL Cholesterol Direct PTH Intact Salicylates Acetaminophen Crossmatch 02/24/19 02/24/19 02/24/19 02:11 04:12 04:55 RBC 2.84 L Hgb 7.8 L Hct 24.5 L MCH MCHC RDW 19.5 H Lymph % (Auto) [place] % (Auto) Eos % (Auto) Lymph # Eos # Seg Neutrophils % PT INR D-Dimer POC ABG pH 7.511 H POC ABG pCO2 33.9 L POC ABG pO2 62 L ABG HCO3 ABG Base Excess ABG Hemoglobin Oxyhemoglobin Sodium Potassium Chloride Carbon Dioxide BUN Creatinine Glucose POC Glucose 69 L Phosphorus ALT Alkaline Phosphatase Total Creatine Kinase CK-MB (CK-2) Rel Index Troponin T Albumin LDL Cholesterol Direct PTH Intact Salicylates Acetaminophen Crossmatch 02/24/19 02/24/19 02/25/19 04:55 05:41 04:45 RBC Hgb Hct MCH MCHC RDW Lymph % (Auto) [place] % (Auto) Eos % (Auto) Lymph # Eos # Seg Neutrophils % PT INR D-Dimer POC ABG pH 7.466 H POC ABG pCO2 POC ABG pO2 75 L ABG HCO3 ABG Base Excess ABG Hemoglobin Oxyhemoglobin Sodium Potassium Chloride Carbon Dioxide BUN Creatinine 1.8 H Glucose 73 L POC Glucose 127 H Phosphorus ALT Alkaline Phosphatase Total Creatine Kinase CK-MB (CK-2) Rel Index Troponin T Albumin LDL Cholesterol Direct PTH Intact Salicylates Acetaminophen Crossmatch 02/25/19 02/25/19 02/26/19 16:34 21:33 03:45 RBC 2.96 L Hgb 8.0 L Hct 25.8 L MCH 27 L MCHC 31 L RDW 20.0 H Lymph % (Auto) [place] % (Auto) Eos % (Auto) Lymph # Eos # Seg Neutrophils % PT INR D-Dimer POC ABG pH POC ABG pCO2 POC ABG pO2 ABG HCO3 ABG Base Excess ABG Hemoglobin Oxyhemoglobin Sodium Potassium Chloride Carbon Dioxide BUN Creatinine Glucose POC Glucose 141 H 106 H Phosphorus ALT Alkaline Phosphatase Total Creatine Kinase CK-MB (CK-2) Rel Index Troponin T Albumin LDL Cholesterol Direct PTH Intact Salicylates Acetaminophen Crossmatch 02/26/19 02/26/19 02/26/19 03:45 04:13 07:53 RBC Hgb Hct MCH MCHC RDW Lymph % (Auto) [place] % (Auto) Eos % (Auto) Lymph # Eos # Seg Neutrophils % PT INR D-Dimer POC ABG pH 7.470 H POC ABG pCO2 POC ABG pO2 ABG HCO3 ABG Base Excess ABG Hemoglobin Oxyhemoglobin Sodium Potassium Chloride Carbon Dioxide BUN Creatinine 1.8 H Glucose POC Glucose 110 H Phosphorus ALT Alkaline Phosphatase Total Creatine Kinase CK-MB (CK-2) Rel Index Troponin T Albumin LDL Cholesterol Direct PTH Intact Salicylates Acetaminophen Crossmatch 02/26/19 02/26/19 02/27/19 11:56 17:43 00:12 RBC Hgb Hct MCH MCHC RDW Lymph % (Auto) [place] % (Auto) Eos % (Auto) Lymph # Eos # Seg Neutrophils % PT INR D-Dimer POC ABG pH POC ABG pCO2 POC ABG pO2 ABG HCO3 ABG Base Excess ABG Hemoglobin Oxyhemoglobin Sodium Potassium Chloride Carbon Dioxide BUN Creatinine Glucose POC Glucose 112 H 127 H 127 H Phosphorus ALT Alkaline Phosphatase Total Creatine Kinase CK-MB (CK-2) Rel Index Troponin T Albumin LDL Cholesterol Direct PTH Intact Salicylates Acetaminophen Crossmatch 02/27/19 02/27/19 02/27/19 04:35 13:15 18:02 RBC Hgb Hct MCH MCHC RDW Lymph % (Auto) [place] % (Auto) Eos % (Auto) Lymph # Eos # Seg Neutrophils % PT INR D-Dimer POC ABG pH 7.483 H POC ABG pCO2 POC ABG pO2 61 L ABG HCO3 ABG Base Excess ABG Hemoglobin Oxyhemoglobin Sodium Potassium Chloride Carbon Dioxide BUN Creatinine Glucose POC Glucose 143 H 106 H Phosphorus ALT Alkaline Phosphatase Total Creatine Kinase CK-MB (CK-2) Rel Index Troponin T Albumin LDL Cholesterol Direct PTH Intact Salicylates Acetaminophen Crossmatch 02/28/19 02/28/19 02/28/19 05:50 11:59 17:52 RBC Hgb Hct MCH MCHC RDW Lymph % (Auto) [place] % (Auto) Eos % (Auto) Lymph # Eos # Seg Neutrophils % PT INR D-Dimer POC ABG pH POC ABG pCO2 POC ABG pO2 ABG HCO3 ABG Base Excess ABG Hemoglobin Oxyhemoglobin Sodium Potassium Chloride Carbon Dioxide BUN Creatinine Glucose POC Glucose 134 H 128 H 142 H Phosphorus ALT Alkaline Phosphatase Total Creatine Kinase CK-MB (CK-2) Rel Index Troponin T Albumin LDL Cholesterol Direct PTH Intact Salicylates Acetaminophen Crossmatch 02/28/19 03/01/19 03/01/19 23:13 05:40 09:39 RBC Hgb Hct MCH MCHC RDW Lymph % (Auto) [place] % (Auto) Eos % (Auto) Lymph # Eos # Seg Neutrophils % PT 16.3 H INR 1.35 H D-Dimer POC ABG pH POC ABG pCO2 POC ABG pO2 ABG HCO3 ABG Base Excess ABG Hemoglobin Oxyhemoglobin Sodium Potassium Chloride Carbon Dioxide BUN Creatinine Glucose POC Glucose 112 H 111 H Phosphorus ALT Alkaline Phosphatase Total Creatine Kinase CK-MB (CK-2) Rel Index Troponin T Albumin LDL Cholesterol Direct PTH Intact Salicylates Acetaminophen Crossmatch 03/01/19 03/01/19 03/01/19 11:56 13:54 17:59 RBC Hgb Hct MCH MCHC RDW Lymph % (Auto) [place] % (Auto) Eos % (Auto) Lymph # Eos # Seg Neutrophils % PT INR D-Dimer POC ABG pH POC ABG pCO2 POC ABG pO2 ABG HCO3 ABG Base Excess ABG Hemoglobin Oxyhemoglobin Sodium Potassium Chloride Carbon Dioxide BUN 33 H Creatinine 2.8 H D Glucose 176 H POC Glucose 199 H 147 H Phosphorus ALT Alkaline Phosphatase Total Creatine Kinase CK-MB (CK-2) Rel Index Troponin T Albumin LDL Cholesterol Direct PTH Intact Salicylates Acetaminophen Crossmatch 03/02/19 03/02/19 03/02/19 05:15 05:15 05:15 RBC 2.73 L Hgb 7.4 L Hct 23.0 L MCH 27 L MCHC RDW 19.9 H Lymph % (Auto) [place] % (Auto) 7.9 H Eos % (Auto) 7.6 H Lymph # 1.0 L Eos # 0.5 H Seg Neutrophils % PT INR D-Dimer POC ABG pH POC ABG pCO2 POC ABG pO2 ABG HCO3 ABG Base Excess ABG Hemoglobin Oxyhemoglobin Sodium Potassium Chloride Carbon Dioxide BUN 43 H Creatinine 3.2 H Glucose POC Glucose Phosphorus 2.30 L ALT Alkaline Phosphatase Total Creatine Kinase CK-MB (CK-2) Rel Index Troponin T Albumin LDL Cholesterol Direct PTH Intact 267.6 H Salicylates Acetaminophen Crossmatch 03/02/19 03/02/19 03/03/19 12:32 18:20 13:30 RBC Hgb Hct MCH MCHC RDW Lymph % (Auto) [place] % (Auto) Eos % (Auto) Lymph # Eos # Seg Neutrophils % PT INR D-Dimer POC ABG pH POC ABG pCO2 POC ABG pO2 ABG HCO3 ABG Base Excess ABG Hemoglobin Oxyhemoglobin Sodium Potassium Chloride 97.3 L Carbon Dioxide BUN 26 H Creatinine 2.2 H Glucose 73 L POC Glucose 111 H 156 H Phosphorus ALT Alkaline Phosphatase Total Creatine Kinase CK-MB (CK-2) Rel Index Troponin T Albumin LDL Cholesterol Direct PTH Intact Salicylates Acetaminophen Crossmatch 03/04/19 03/04/19 03/04/19 00:02 05:37 05:40 RBC 2.63 L Hgb 7.2 L Hct 22.2 L MCH MCHC RDW 20.2 H Lymph % (Auto) 10.5 L [place] % (Auto) Eos % (Auto) 4.6 H Lymph # 0.7 L Eos # Seg Neutrophils % 76.9 H PT INR D-Dimer POC ABG pH POC ABG pCO2 POC ABG pO2 ABG HCO3 ABG Base Excess ABG Hemoglobin Oxyhemoglobin Sodium Potassium Chloride Carbon Dioxide BUN Creatinine Glucose POC Glucose 136 H 123 H Phosphorus ALT Alkaline Phosphatase Total Creatine Kinase CK-MB (CK-2) Rel Index Troponin T Albumin LDL Cholesterol Direct PTH Intact Salicylates Acetaminophen Crossmatch 03/04/19 03/04/19 03/04/19 05:40 11:39 23:20 RBC Hgb Hct MCH MCHC RDW Lymph % (Auto) [place] % (Auto) Eos % (Auto) Lymph # Eos # Seg Neutrophils % PT INR D-Dimer POC ABG pH POC ABG pCO2 POC ABG pO2 ABG HCO3 ABG Base Excess ABG Hemoglobin Oxyhemoglobin Sodium Potassium Chloride Carbon Dioxide BUN 34 H Creatinine 2.7 H Glucose 114 H POC Glucose 175 H 151 H Phosphorus ALT Alkaline Phosphatase Total Creatine Kinase CK-MB (CK-2) Rel Index Troponin T Albumin LDL Cholesterol Direct PTH Intact Salicylates Acetaminophen Crossmatch 03/05/19 03/05/19 03/05/19 05:37 12:08 17:11 RBC Hgb Hct MCH MCHC RDW Lymph % (Auto) [place] % (Auto) Eos % (Auto) Lymph # Eos # Seg Neutrophils % PT INR D-Dimer POC ABG pH POC ABG pCO2 POC ABG pO2 ABG HCO3 ABG Base Excess ABG Hemoglobin Oxyhemoglobin Sodium Potassium Chloride Carbon Dioxide BUN Creatinine Glucose POC Glucose 134 H 135 H 135 H Phosphorus ALT Alkaline Phosphatase Total Creatine Kinase CK-MB (CK-2) Rel Index Troponin T Albumin LDL Cholesterol Direct PTH Intact Salicylates Acetaminophen Crossmatch 03/06/19 03/06/19 03/06/19 00:16 13:05 18:09 RBC Hgb Hct MCH MCHC RDW Lymph % (Auto) [place] % (Auto) Eos % (Auto) Lymph # Eos # Seg Neutrophils % PT INR D-Dimer POC ABG pH POC ABG pCO2 POC ABG pO2 ABG HCO3 ABG Base Excess ABG Hemoglobin Oxyhemoglobin Sodium Potassium Chloride Carbon Dioxide BUN Creatinine Glucose POC Glucose 117 H 113 H 131 H Phosphorus ALT Alkaline Phosphatase Total Creatine Kinase CK-MB (CK-2) Rel Index Troponin T Albumin LDL Cholesterol Direct PTH Intact Salicylates Acetaminophen Crossmatch 03/07/19 03/08/19 03/08/19 05:25 05:33 16:00 RBC 2.44 L Hgb 6.6 L Hct 20.8 L MCH 27 L MCHC RDW 19.2 H Lymph % (Auto) [place] % (Auto) Eos % (Auto) 8.6 H Lymph # 0.8 L Eos # 0.5 H Seg Neutrophils % 70.7 H PT INR D-Dimer POC ABG pH POC ABG pCO2 POC ABG pO2 ABG HCO3 ABG Base Excess ABG Hemoglobin Oxyhemoglobin Sodium Potassium Chloride Carbon Dioxide BUN Creatinine Glucose POC Glucose 106 H 108 H Phosphorus ALT Alkaline Phosphatase Total Creatine Kinase CK-MB (CK-2) Rel Index Troponin T Albumin LDL Cholesterol Direct PTH Intact Salicylates Acetaminophen Crossmatch 03/08/19 03/08/19 03/08/19 16:00 18:38 Unknown RBC Hgb Hct MCH MCHC RDW Lymph % (Auto) [place] % (Auto) Eos % (Auto) Lymph # Eos # Seg Neutrophils % PT INR D-Dimer POC ABG pH POC ABG pCO2 POC ABG pO2 ABG HCO3 ABG Base Excess ABG Hemoglobin Oxyhemoglobin Sodium Potassium 5.4 H D Chloride Carbon Dioxide BUN 47 H Creatinine 2.6 H Glucose POC Glucose 123 H Phosphorus ALT < 5 L Alkaline Phosphatase Total Creatine Kinase CK-MB (CK-2) Rel Index Troponin T Albumin 2.2 L LDL Cholesterol Direct PTH Intact Salicylates Acetaminophen Crossmatch See Detail 03/09/19 03/09/19 03/09/19 10:48 12:28 13:53 RBC 2.85 L Hgb 7.7 L Hct 24.2 L MCH 27 L MCHC RDW 18.7 H Lymph % (Auto) [place] % (Auto) Eos % (Auto) Lymph # Eos # Seg Neutrophils % PT INR D-Dimer POC ABG pH POC ABG pCO2 POC ABG pO2 ABG HCO3 30.5 H ABG Base Excess 5.6 H ABG Hemoglobin 8.1 L Oxyhemoglobin 93.8 L Sodium Potassium Chloride Carbon Dioxide BUN Creatinine Glucose POC Glucose 114 H Phosphorus ALT Alkaline Phosphatase Total Creatine Kinase CK-MB (CK-2) Rel Index Troponin T Albumin LDL Cholesterol Direct PTH Intact Salicylates Acetaminophen Crossmatch 03/09/19 03/09/19 03/10/19 17:58 23:53 12:01 RBC Hgb Hct MCH MCHC RDW Lymph % (Auto) [place] % (Auto) Eos % (Auto) Lymph # Eos # Seg Neutrophils % PT INR D-Dimer POC ABG pH POC ABG pCO2 POC ABG pO2 ABG HCO3 ABG Base Excess ABG Hemoglobin Oxyhemoglobin Sodium Potassium Chloride Carbon Dioxide BUN Creatinine Glucose POC Glucose 108 H 128 H 144 H Phosphorus ALT Alkaline Phosphatase Total Creatine Kinase CK-MB (CK-2) Rel Index Troponin T Albumin LDL Cholesterol Direct PTH Intact Salicylates Acetaminophen Crossmatch 03/10/19 03/11/19 03/11/19 16:50 00:24 05:02 RBC Hgb Hct MCH MCHC RDW Lymph % (Auto) [place] % (Auto) Eos % (Auto) Lymph # Eos # Seg Neutrophils % PT INR D-Dimer POC ABG pH POC ABG pCO2 POC ABG pO2 ABG HCO3 ABG Base Excess ABG Hemoglobin Oxyhemoglobin Sodium Potassium Chloride Carbon Dioxide BUN Creatinine Glucose POC Glucose 147 H 123 H 120 H Phosphorus ALT Alkaline Phosphatase Total Creatine Kinase CK-MB (CK-2) Rel Index Troponin T Albumin LDL Cholesterol Direct PTH Intact Salicylates Acetaminophen Crossmatch 03/11/19 03/11/19 03/11/19 11:56 12:20 18:37 RBC Hgb Hct MCH MCHC RDW Lymph % (Auto) [place] % (Auto) Eos % (Auto) Lymph # Eos # Seg Neutrophils % PT INR D-Dimer POC ABG pH POC ABG pCO2 POC ABG pO2 ABG HCO3 ABG Base Excess ABG Hemoglobin Oxyhemoglobin Sodium Potassium 5.2 H Chloride Carbon Dioxide BUN Creatinine Glucose POC Glucose 123 H 125 H Phosphorus ALT Alkaline Phosphatase Total Creatine Kinase CK-MB (CK-2) Rel Index Troponin T Albumin LDL Cholesterol Direct PTH Intact Salicylates Acetaminophen Crossmatch 03/11/19 03/12/19 03/12/19 22:52 12:04 18:25 RBC Hgb Hct MCH MCHC RDW Lymph % (Auto) [place] % (Auto) Eos % (Auto) Lymph # Eos # Seg Neutrophils % PT INR D-Dimer POC ABG pH POC ABG pCO2 POC ABG pO2 ABG HCO3 ABG Base Excess ABG Hemoglobin Oxyhemoglobin Sodium Potassium Chloride Carbon Dioxide BUN Creatinine Glucose POC Glucose 110 H 106 H 118 H Phosphorus ALT Alkaline Phosphatase Total Creatine Kinase CK-MB (CK-2) Rel Index Troponin T Albumin LDL Cholesterol Direct PTH Intact Salicylates Acetaminophen Crossmatch 03/12/19 03/13/19 03/13/19 23:36 04:38 04:38 RBC 2.95 L Hgb 7.9 L Hct 24.9 L MCH 27 L MCHC RDW 19.9 H Lymph % (Auto) 11.1 L [place] % (Auto) 8.1 H Eos % (Auto) 4.4 H Lymph # 0.9 L Eos # Seg Neutrophils % 75.4 H PT INR D-Dimer POC ABG pH POC ABG pCO2 POC ABG pO2 ABG HCO3 ABG Base Excess ABG Hemoglobin Oxyhemoglobin Sodium 136 L Potassium 5.1 H Chloride 93.8 L Carbon Dioxide BUN 48 H Creatinine 2.7 H Glucose 102 H POC Glucose 115 H Phosphorus ALT < 5 L Alkaline Phosphatase 143 H Total Creatine Kinase CK-MB (CK-2) Rel Index Troponin T Albumin 2.5 L LDL Cholesterol Direct PTH Intact Salicylates Acetaminophen Crossmatch 03/13/19 03/13/19 03/13/19 05:33 13:37 18:03 RBC Hgb Hct MCH MCHC RDW Lymph % (Auto) [place] % (Auto) Eos % (Auto) Lymph # Eos # Seg Neutrophils % PT INR D-Dimer POC ABG pH POC ABG pCO2 POC ABG pO2 ABG HCO3 ABG Base Excess ABG Hemoglobin Oxyhemoglobin Sodium Potassium Chloride Carbon Dioxide BUN Creatinine Glucose POC Glucose 140 H 150 H 158 H Phosphorus ALT Alkaline Phosphatase Total Creatine Kinase CK-MB (CK-2) Rel Index Troponin T Albumin LDL Cholesterol Direct PTH Intact Salicylates Acetaminophen Crossmatch 03/13/19 03/14/19 03/14/19 23:32 05:24 12:20 RBC Hgb Hct MCH MCHC RDW Lymph % (Auto) [place] % (Auto) Eos % (Auto) Lymph # Eos # Seg Neutrophils % PT INR D-Dimer POC ABG pH POC ABG pCO2 POC ABG pO2 ABG HCO3 ABG Base Excess ABG Hemoglobin Oxyhemoglobin Sodium Potassium Chloride Carbon Dioxide BUN Creatinine Glucose POC Glucose 162 H 146 H 127 H Phosphorus ALT Alkaline Phosphatase Total Creatine Kinase CK-MB (CK-2) Rel Index Troponin T Albumin LDL Cholesterol Direct PTH Intact Salicylates Acetaminophen Crossmatch Chest x-ray: report reviewed, image reviewed (bilateral infiltrates)
[2019-03-15] MEDS: INSULIN REGULAR, HUMAN 100 UNITS/1 ML SUB-Q SCH ×6 (00:23→19:41)
--- NOTE | 2019-03-15 03:04 | XRay Report ---
CHEST 1 VIEW INDICATION: Fever, SOB. COMPARISON: 03/12/2019. FINDINGS: Support devices: Unchanged. Heart: Stable cardiomegaly. Lungs/Pleura: Bilateral edema/infiltrate and basilar effusion/volume loss remains. The overall appear ance is mildly improved. Additional findings: None. IMPRESSION: Mild improvement. Signer Name: Paco Nguyen MD Signed: 03/15/2019 3:00 AM Workstation Name: [id number]
[2019-03-15 05:14] LABS: Basophils # (Auto) 0.1 K/mm3 (0.0-0.1); Basophils % (Auto) 0.6 % (0.0-1.8); Eosinophils % (Auto) 0.3 % (0.0-4.3); Hematocrit 26.5 % (35.5-45.6); Hemoglobin 8.1 gm/dl (11.8-15.2); Lymphocytes # (Auto) 0.6 K/mm3 (1.2-5.4); Lymphocytes % (Auto) 4.4 % (13.4-35.0); Mean Corpuscular HGB Conc 31 % (32-34); Mean Corpuscular Volume 85 fl (84-94); Monocytes # (Auto) 0.9 K/mm3 (0.0-0.8); Monocytes % (Auto) 7.4 % (0.0-7.3); Platelet Count 322 K/mm3 (140-440); Red Blood Count 3.11 M/mm3 (3.65-5.03); Red Cell Distribution Width 19.7 % (13.2-15.2)
[2019-03-15] MEDS: METOPROLOL TARTRATE 5 MG/5 ML INJ IV PRN (05:15)
[2019-03-15 05:37] LABS: Albumin 2.3 g/dL (3.9-5); Calcium 11.1 mg/dL (8.4-10.2)
--- NOTE | 2019-03-15 07:00 | Progress Note ---
Assessment and Plan Trach and peg done and LTAC transfer with anticipated longer weaning process and wound care management. HR control improved with change in BB. Acute respiratory failure on mechanical ventilator >96 hrs - Currently on trach placed on 03/03 Pulm consult appreciated weaning trial VAP BUNDLE ASPIRATION BUNDLE Acute pulmonary edema, fluid overload on CXR repeat xray intermittently Dialysis Dilated CMP Continue diuresis Acute encephalopathy, probably metabolic or toxic Continues on Mechanical ventilator. ESRD on hemodialysis nephrology following Vascular eval. done re: LUE AV graft, see note Bilateral pleural effusions Anticipate improvement with Permanent atrial fibrillation and flutter Not on anticoagulation because of anemia thrombocytopenia Change noted to BB agent to IV. 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 -Pt is s/p x1 DDVAP RUL atelectasis, probably mucous plugging DVT prophylaxis Lovenox Full code status poor prognosis Awaiting LTAC placement The high probability of a clinically significant, sudden or life threatening deterioration of the [pulmonary, neuro, renal] system(s) required my full and direct attention, intervention and personal management. The aggregate critical care time was [35] minutes. This time is in addition to time spent performing reported procedures but includes the following: [x] Data Review and interpretation [x] Patient assessment and monitoring of vital signs [] Documentation [x] Medication orders and management Subjective Date of service: 03/13/19 Principal diagnosis: respiratory failure Interval history: 63-year-old -[place] man from [facility] with a plethora of co- morbidities including blindness, CVA, CHF, PPM/ICD, loop recorder since 2012 that is MRI compatible, IDDM type 2, sepsis left foot ulcer, afib, ESRD with complications on HD TTS, hypertension, AOCD and GERD who presented to the ED with hypotensive after intubation in the emergency room. Still intubated, diagnosed with fluid overload, pleural effusion. Patient has had recurrent admission in the hospital for similar reason and was recently discharged from the hospital following treatment of Severe Sepsis due to Necrotizing Unstagable sacral decubitus ulcer with ostemomylitis. Objective - Exam Narrative Exam: Patient intubated and Trach status - Constitutional Vitals: Vital Signs - 12hr 03/14/19 03/14/19 03/14/19 19:00 19:50 20:00 Temperature 97.4 F L Pulse Rate 108 H 88 Pulse Rate [ 101 H Anterior Bilateral Throughout] Pulse Rate [ 101 H From Monitor] Respiratory 15 20 Rate Respiratory 18 Rate [Anterior Bilateral Throughout] Blood Pressure 116/61 103/49 O2 Sat by Pulse 100 100 Oximetry 03/14/19 03/14/19 03/14/19 20:02 21:00 21:16 Temperature Pulse Rate 110 H 105 H Pulse Rate [ 96 H Anterior Bilateral Throughout] Pulse Rate [ From Monitor] Respiratory 30 H Rate Respiratory 20 Rate [Anterior Bilateral Throughout] Blood Pressure 108/56 108/56 O2 Sat by Pulse 100 Oximetry 03/14/19 03/14/19 03/14/19 22:00 23:00 23:25 Temperature 97.5 F L Pulse Rate 85 82 Pulse Rate [ Anterior Bilateral Throughout] Pulse Rate [ From Monitor] Respiratory 19 16 Rate Respiratory Rate [Anterior Bilateral Throughout] Blood Pressure 104/49 98/48 O2 Sat by Pulse 100 100 Oximetry 03/15/19 03/15/19 03/15/19 00:00 00:03 01:00 Temperature 97.8 F Pulse Rate 108 H 97 H 96 H Pulse Rate [ Anterior Bilateral Throughout] Pulse Rate [ 92 H From Monitor] Respiratory 17 24 20 Rate Respiratory Rate [Anterior Bilateral Throughout] Blood Pressure 110/64 110/64 121/57 O2 Sat by Pulse 99 99 99 Oximetry 03/15/19 03/15/19 03/15/19 02:00 03:01 03:45 Temperature 97.5 F L Pulse Rate 87 110 H Pulse Rate [ Anterior Bilateral Throughout] Pulse Rate [ From Monitor] Respiratory 20 24 Rate Respiratory Rate [Anterior Bilateral Throughout] Blood Pressure 116/64 124/71 O2 Sat by Pulse 99 98 Oximetry 03/15/19 03/15/19 03/15/19 04:00 04:01 05:00 Temperature Pulse Rate 110 H 110 H 110 H Pulse Rate [ Anterior Bilateral Throughout] Pulse Rate [ 109 H From Monitor] Respiratory 24 21 25 H Rate Respiratory Rate [Anterior Bilateral Throughout] Blood Pressure 118/79 134/74 O2 Sat by Pulse 97 98 98 Oximetry 03/15/19 03/15/19 05:15 06:01 Temperature Pulse Rate 128 H 121 H Pulse Rate [ Anterior Bilateral Throughout] Pulse Rate [ From Monitor] Respiratory 27 H Rate Respiratory Rate [Anterior Bilateral Throughout] Blood Pressure 134/74 143/74 O2 Sat by Pulse 97 Oximetry General appearance: Present: no acute distress, well-nourished - EENT Eyes: PERRL, EOM intact ENT: hearing intact, clear oral mucosa Ears: bilateral: normal - Neck Neck: supple, normal ROM - Respiratory Respiratory effort: normal Respiratory: bilateral: CTA - Breasts Breasts: normal - Cardiovascular Heart rate: 88 Rhythm: regular Heart Sounds: Present: S1 & S2. Absent: gallop, rub Extremities: pulses intact, No edema, normal color, Full ROM, abnormal (Severe sacra; decubitus ulcer) - Gastrointestinal General gastrointestinal: Present: soft, non-tender, non-distended, normal bowel sounds - Genitourinary Male genitourinary: normal - Integumentary Integumentary: clear, warm, dry - Musculoskeletal Musculoskeletal: generalized weakness - Neurologic Neurologic: other (On Trach and Vent) - Allied health notes Allied health notes reviewed: nursing, case management - Labs CBC & Chem 7: 03/15/19 04:38 03/15/19 04:38 Labs: Abnormal lab results 03/14/19 03/14/19 03/14/19 Range/Units 12:20 18:05 23:57 WBC (4.5-11.0) K/mm3 RBC (3.65-5.03) M/mm3 Hgb (11.8-15.2) gm/dl Hct (35.5-45.6) % MCH (28-32) pg MCHC (32-34) % RDW (13.2-15.2) % Lymph % (Auto) (13.4-35.0) % [place] % (Auto) (0.0-7.3) % Lymph # (1.2-5.4) K/mm3 [place] # (0.0-0.8) K/mm3 Seg Neutrophils % (40.0-70.0) % Seg Neutrophils # (1.8-7.7) K/mm3 Sodium (137-145) mmol/L Chloride (98-107) mmol/L BUN (9-20) mg/dL Creatinine (0.8-1.5) mg/dL Glucose (75-100) mg/dL POC Glucose 127 H 142 H 155 H (70-105) Calcium (8.4-10.2) mg/dL Alkaline Phosphatase (35-129) units/L Albumin (3.9-5) g/dL 03/15/19 03/15/19 03/15/19 Range/Units 04:38 04:38 05:31 WBC 12.8 H (4.5-11.0) K/mm3 RBC 3.11 L (3.65-5.03) M/mm3 Hgb 8.1 L (11.8-15.2) gm/dl Hct 26.5 L (35.5-45.6) % MCH 26 L (28-32) pg MCHC 31 L (32-34) % RDW 19.7 H (13.2-15.2) % Lymph % (Auto) 4.4 L (13.4-35.0) % [place] % (Auto) 7.4 H (0.0-7.3) % Lymph # 0.6 L (1.2-5.4) K/mm3 [place] # 0.9 H (0.0-0.8) K/mm3 Seg Neutrophils % 87.3 H (40.0-70.0) % Seg Neutrophils # 11.2 H (1.8-7.7) K/mm3 Sodium 135 L (137-145) mmol/L Chloride 91.9 L (98-107) mmol/L BUN 54 H (9-20) mg/dL Creatinine 2.8 H (0.8-1.5) mg/dL Glucose 128 H (75-100) mg/dL POC Glucose 160 H (70-105) Calcium 11.1 H (8.4-10.2) mg/dL Alkaline Phosphatase 161 H (35-129) units/L Albumin 2.3 L (3.9-5) g/dL
--- NOTE | 2019-03-15 07:02 | Progress Note ---
Assessment and Plan S/p Trach and Peg placement Acute respiratory failure on mechanical ventilator >96 hrs - Currently on trach placed on 03/03 Pulm consult appreciated weaning trial VAP BUNDLE ASPIRATION BUNDLE Acute pulmonary edema, fluid overload on CXR repeat xray intermittently Dialysis Dilated CMP Continue diuresis Acute encephalopathy, probably metabolic or toxic Continues on Mechanical ventilator. ESRD on hemodialysis nephrology following Vascular eval. done re: LUE AV graft, see note Bilateral pleural effusions Anticipate improvement with Permanent atrial fibrillation and flutter Not on anticoagulation because of anemia thrombocytopenia Change noted to BB agent to IV. 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 -Pt is s/p x1 DDVAP RUL atelectasis, probably mucous plugging DVT prophylaxis Lovenox Full code status poor prognosis Awaiting LTAC placement Off vent can go to SNF Case management on board The high probability of a clinically significant, sudden or life threatening deterioration of the [pulmonary, neuro, renal] system(s) required my full and direct attention, intervention and personal management. The aggregate critical care time was [35] minutes. This time is in addition to time spent performing reported procedures but includes the following: [x] Data Review and interpretation [x] Patient assessment and monitoring of vital signs [] Documentation [x] Medication orders and management Subjective Date of service: 03/14/19 Principal diagnosis: respiratory failure Interval history: 63-year-old -[place] man from [facility] with a plethora of co- morbidities including blindness, CVA, CHF, PPM/ICD, loop recorder since 2012 that is MRI compatible, IDDM type 2, sepsis left foot ulcer, afib, ESRD with complications on HD TTS, hypertension, AOCD and GERD who presented to the ED with hypotensive after intubation in the emergency room. Still intubated, diagnosed with fluid overload, pleural effusion. Patient has had recurrent admission in the hospital for similar reason and was recently discharged from the hospital following treatment of Severe Sepsis due to Necrotizing Unstagable sacral decubitus ulcer with ostemomylitis. Objective - Exam Narrative Exam: Patient intubated and Trach status - Constitutional Vitals: Vital Signs - 12hr 03/14/19 03/14/19 03/14/19 19:50 20:00 20:02 Temperature Pulse Rate 88 Pulse Rate [ 101 H 96 H Anterior Bilateral Throughout] Pulse Rate [ 101 H From Monitor] Respiratory 20 Rate Respiratory 18 20 Rate [Anterior Bilateral Throughout] Blood Pressure 103/49 O2 Sat by Pulse 100 Oximetry 03/14/19 03/14/19 03/14/19 21:00 21:16 22:00 Temperature Pulse Rate 110 H 105 H 85 Pulse Rate [ Anterior Bilateral Throughout] Pulse Rate [ From Monitor] Respiratory 30 H 19 Rate Respiratory Rate [Anterior Bilateral Throughout] Blood Pressure 108/56 108/56 104/49 O2 Sat by Pulse 100 100 Oximetry 03/14/19 03/14/19 03/15/19 23:00 23:25 00:00 Temperature 97.5 F L 97.8 F Pulse Rate 82 108 H Pulse Rate [ Anterior Bilateral Throughout] Pulse Rate [ 92 H From Monitor] Respiratory 16 17 Rate Respiratory Rate [Anterior Bilateral Throughout] Blood Pressure 98/48 110/64 O2 Sat by Pulse 100 99 Oximetry 03/15/19 03/15/19 03/15/19 00:03 01:00 02:00 Temperature Pulse Rate 97 H 96 H 87 Pulse Rate [ Anterior Bilateral Throughout] Pulse Rate [ From Monitor] Respiratory 24 20 20 Rate Respiratory Rate [Anterior Bilateral Throughout] Blood Pressure 110/64 121/57 116/64 O2 Sat by Pulse 99 99 99 Oximetry 03/15/19 03/15/19 03/15/19 03:01 03:45 04:00 Temperature 97.5 F L Pulse Rate 110 H 110 H Pulse Rate [ Anterior Bilateral Throughout] Pulse Rate [ 109 H From Monitor] Respiratory 24 24 Rate Respiratory Rate [Anterior Bilateral Throughout] Blood Pressure 124/71 O2 Sat by Pulse 98 97 Oximetry 03/15/19 03/15/19 03/15/19 04:01 05:00 05:15 Temperature Pulse Rate 110 H 110 H 128 H Pulse Rate [ Anterior Bilateral Throughout] Pulse Rate [ From Monitor] Respiratory 21 25 H Rate Respiratory Rate [Anterior Bilateral Throughout] Blood Pressure 118/79 134/74 134/74 O2 Sat by Pulse 98 98 Oximetry 03/15/19 06:01 Temperature Pulse Rate 121 H Pulse Rate [ Anterior Bilateral Throughout] Pulse Rate [ From Monitor] Respiratory 27 H Rate Respiratory Rate [Anterior Bilateral Throughout] Blood Pressure 143/74 O2 Sat by Pulse 97 Oximetry General appearance: Present: no acute distress, well-nourished - EENT Eyes: PERRL, EOM intact ENT: hearing intact, clear oral mucosa Ears: bilateral: normal - Neck Neck: supple, normal ROM - Respiratory Respiratory effort: normal Respiratory: bilateral: CTA - Breasts Breasts: normal - Cardiovascular Heart rate: 88 Rhythm: regular Heart Sounds: Present: S1 & S2. Absent: gallop, rub Extremities: pulses intact, abnormal (Severe sacral decubitus ulcer) - Gastrointestinal General gastrointestinal: Present: soft, non-tender, non-distended, normal bowel sounds - Genitourinary Male genitourinary: normal - Integumentary Integumentary: clear, warm, dry - Musculoskeletal Musculoskeletal: 1, strength equal bilaterally - Neurologic Neurologic: moves all extremities - Psychiatric Psychiatric: memory intact, appropriate mood/affect, intact judgment & insight - Labs CBC & Chem 7: 03/15/19 04:38 03/15/19 04:38 Labs: Abnormal lab results 03/14/19 03/14/19 03/14/19 Range/Units 12:20 18:05 23:57 WBC (4.5-11.0) K/mm3 RBC (3.65-5.03) M/mm3 Hgb (11.8-15.2) gm/dl Hct (35.5-45.6) % MCH (28-32) pg MCHC (32-34) % RDW (13.2-15.2) % Lymph % (Auto) (13.4-35.0) % [place] % (Auto) (0.0-7.3) % Lymph # (1.2-5.4) K/mm3 [place] # (0.0-0.8) K/mm3 Seg Neutrophils % (40.0-70.0) % Seg Neutrophils # (1.8-7.7) K/mm3 Sodium (137-145) mmol/L Chloride (98-107) mmol/L BUN (9-20) mg/dL Creatinine (0.8-1.5) mg/dL Glucose (75-100) mg/dL POC Glucose 127 H 142 H 155 H (70-105) Calcium (8.4-10.2) mg/dL Alkaline Phosphatase (35-129) units/L Albumin (3.9-5) g/dL 03/15/19 03/15/19 03/15/19 Range/Units 04:38 04:38 05:31 WBC 12.8 H (4.5-11.0) K/mm3 RBC 3.11 L (3.65-5.03) M/mm3 Hgb 8.1 L (11.8-15.2) gm/dl Hct 26.5 L (35.5-45.6) % MCH 26 L (28-32) pg MCHC 31 L (32-34) % RDW 19.7 H (13.2-15.2) % Lymph % (Auto) 4.4 L (13.4-35.0) % [place] % (Auto) 7.4 H (0.0-7.3) % Lymph # 0.6 L (1.2-5.4) K/mm3 [place] # 0.9 H (0.0-0.8) K/mm3 Seg Neutrophils % 87.3 H (40.0-70.0) % Seg Neutrophils # 11.2 H (1.8-7.7) K/mm3 Sodium 135 L (137-145) mmol/L Chloride 91.9 L (98-107) mmol/L BUN 54 H (9-20) mg/dL Creatinine 2.8 H (0.8-1.5) mg/dL Glucose 128 H (75-100) mg/dL POC Glucose 160 H (70-105) Calcium 11.1 H (8.4-10.2) mg/dL Alkaline Phosphatase 161 H (35-129) units/L Albumin 2.3 L (3.9-5) g/dL
[2019-03-15] MEDS: IPRATROPIUM/ALBUTEROL SULFATE 3 ML AMPUL.NEB IH SCH ×2 (08:15→14:31)
[2019-03-15] MEDS: METOPROLOL TARTRATE 25 MG TAB PO SCH ×3 (08:56→20:54)
[2019-03-15] MEDS: FAMOTIDINE 20 MG TAB PO SCH (09:00)
[2019-03-15] MEDS: risperiDONE 1 MG TAB PO SCH (09:00)
[2019-03-15] MEDS: HEPARIN 5,000 UNIT/1 ML VIAL SUB-Q SCH ×2 (09:00→22:06)
[2019-03-15] MEDS: SERTRALINE 100 MG TAB PO SCH (09:01)
--- NOTE | 2019-03-15 13:25 | Progress Note ---
Assessment and Plan Assessment: * End stage renal disease (outpatient TTS schedule) * Acute hypoxic respiratory failure on mechanical ventilation * Atrial fibrillation * History of CVA * Anemia secondary to ESRD * Secondary hyperparathyroidism Plan * Continue HD MWF schedule for now while inpatient * UF as tolerated; reviewed pulmonary notes and CXR * AVG in use. Appreciate vascular assistance to remove Permacath * Empiric abx per ID/primary team * Nutrition per primary team * Dose medications for renal function * Epogen TID Overall prognosis remains poor; will continue to follow for ESRD needs while inpatient. Subjective Date of service: 03/15/19 Principal diagnosis: respiratory failure Interval history: no acute events Objective - Exam Narrative Exam: General appearance: chronically ill, intubated, frail EENT: normocephalic Neck: ETT in place Respiratory: coarse mechanical breath sounds bilaterally Cardiology: regular, S1S2, no edema Gastrointestinal: PEG and colostomy noted Integumentary: warm and dry Psychiatric: unable to assess - Vital Signs Vital signs: Vital Signs - 12hr 03/15/19 03/15/19 03/15/19 02:00 03:01 03:45 Temperature 97.5 F L Pulse Rate 87 110 H Pulse Rate [ Anterior Bilateral Throughout] Pulse Rate [ From Monitor] Respiratory 20 24 Rate Respiratory Rate [Anterior Bilateral Throughout] Blood Pressure 116/64 124/71 O2 Sat by Pulse 99 98 Oximetry O2 Sat by Pulse Oximetry [ Assessment] 03/15/19 03/15/19 03/15/19 04:00 04:01 05:00 Temperature Pulse Rate 110 H 110 H 110 H Pulse Rate [ Anterior Bilateral Throughout] Pulse Rate [ 109 H From Monitor] Respiratory 24 21 25 H Rate Respiratory Rate [Anterior Bilateral Throughout] Blood Pressure 118/79 134/74 O2 Sat by Pulse 97 98 98 Oximetry O2 Sat by Pulse Oximetry [ Assessment] 03/15/19 03/15/19 03/15/19 05:15 06:01 07:00 Temperature Pulse Rate 128 H 121 H 111 H Pulse Rate [ Anterior Bilateral Throughout] Pulse Rate [ From Monitor] Respiratory 27 H 20 Rate Respiratory Rate [Anterior Bilateral Throughout] Blood Pressure 134/74 143/74 133/76 O2 Sat by Pulse 97 97 Oximetry O2 Sat by Pulse Oximetry [ Assessment] 03/15/19 03/15/19 03/15/19 08:00 08:15 08:19 Temperature 100.8 F H Pulse Rate 112 H Pulse Rate [ 118 H Anterior Bilateral Throughout] Pulse Rate [ 112 H From Monitor] Respiratory 11 L Rate Respiratory 17 Rate [Anterior Bilateral Throughout] Blood Pressure 139/77 O2 Sat by Pulse 98 99 Oximetry O2 Sat by Pulse 98 Oximetry [ Assessment] 03/15/19 03/15/19 03/15/19 08:56 09:00 10:00 Temperature Pulse Rate 117 H 119 H 117 H Pulse Rate [ Anterior Bilateral Throughout] Pulse Rate [ From Monitor] Respiratory 27 H 23 Rate Respiratory Rate [Anterior Bilateral Throughout] Blood Pressure 139/77 132/76 129/72 O2 Sat by Pulse 97 92 Oximetry O2 Sat by Pulse Oximetry [ Assessment] 03/15/19 03/15/19 11:00 12:00 Temperature 98.9 F Pulse Rate 113 H 112 H Pulse Rate [ Anterior Bilateral Throughout] Pulse Rate [ 110 H From Monitor] Respiratory 33 H 28 H Rate Respiratory Rate [Anterior Bilateral Throughout] Blood Pressure 124/61 120/62 O2 Sat by Pulse 96 99 Oximetry O2 Sat by Pulse Oximetry [ Assessment] - Lab 03/15/19 04:38 03/15/19 04:38 Most recent lab results ABG pH 7.435 pH Units (7.350-7.450) 03/09/19 13:53 ABG pCO2 46.5 mm Hg 03/09/19 13:53 ABG pO2 80.8 mm Hg (80.0-90.0) 03/09/19 13:53 ABG HCO3 30.5 mmol/L (20.0-26.0) H 03/09/19 13:53 ABG O2 Saturation 96.5 % (95.0-99.0) 03/09/19 13:53 Calcium 11.1 mg/dL (8.4-10.2) H 03/15/19 04:38 Phosphorus 3.10 mg/dL (2.5-4.5) 03/15/19 04:38 Magnesium 2.30 mg/dL (1.7-2.3) 03/15/19 04:38 Medications & Allergies - Medications Allergies/Adverse Reactions: Allergies haloperidol [From Haldol] Adverse Reaction (Verified 03/13/18 12:10) Unknown haloperidol lactate [From Haldol] Adverse Reaction (Verified 03/13/18 12:10) Unknown Home Medications: Home Medications Medication Instructions Recorded Confirmed Last Taken Type risperiDONE [RisperDAL] 1 mg PO QAM 03/13/18 02/21/19 Unknown History Sertraline [Zoloft] 100 mg PO QDAY 08/26/18 02/21/19 Unknown History Polyethylene Glycol 3350 [Miralax 17 gm PO QDAY #30 packet 11/05/18 02/21/19 Unknown Rx 3350] Aspirin EC [Halfprin EC] 81 mg PO DAILY #30 11/19/18 02/21/19 Unknown Rx Docusate Sodium [Colace CAP] 100 mg PO BID #60 11/19/18 02/21/19 Unknown Rx Folic Acid [Folvite] 1 mg PO DAILY #30 tab 11/19/18 02/21/19 Unknown Rx Famotidine [Pepcid] 20 mg PO DAILY tablet 12/08/18 02/21/19 Unknown Rx Gabapentin [Neurontin] 100 mg PO QHS capsule 12/08/18 02/21/19 Unknown Rx Metoprolol [Lopressor TAB] 50 mg PO BID 30 Days tablet 12/08/18 02/21/19 Unknown Rx Sevelamer Carbonate [Renvela] 800 mg PO TIDWM tablet 12/08/18 02/21/19 Unknown Rx hydrALAZINE [Apresoline TAB] 100 mg PO Q8HR #120 tablet 12/08/18 02/21/19 Unknown Rx Acetaminophen [Acetaminophen TAB] 650 mg PO Q12H PRN 12/15/18 02/21/19 Unknown History Glucagon,Human Recombinant 1 mg IJ Q15MIN PRN 12/15/18 02/21/19 Unknown History [Glucagon Emergency Kit] Insulin Aspart [NovoLOG 100 See Protocol SQ QWEEK 12/15/18 02/21/19 Unknown History UNITS/ML VIAL] Active Medications: Generic Name Dose Route Start Last Admin Trade Name Freq PRN Reason Stop Dose Admin Acetaminophen 650 mg 02/21/19 22:19 03/14/19 21:16 Tylenol PO 650 mg Q4H PRN Administration Pain MILD(1-3)/Fever >100.5/HILL Albuterol/Ipratropium 1 ampul 02/24/19 20:00 03/15/19 08:15 Duoneb *Not For Prn Use* IH 1 ampul TIDRT SANCHEZ Administration Lipase/Protease/Amylase 1 each 03/05/19 14:04 Pancreaze 10,500 Unit FEEDTUBE PRN PRN For Clogged Feeding Tube Dextrose 50 ml 02/21/19 22:22 03/03/19 17:37 D50w (25gm) Syringe IV 50 ml PRN PRN Administration Hypoglycemia Famotidine 20 mg 02/23/19 10:00 03/15/19 09:00 Pepcid PO 20 mg DAILY SANCHEZ Administration Heparin Sodium (Porcine) 5,000 unit 03/04/19 22:00 03/15/19 09:00 Heparin SUB-Q 5,000 unit Q12HR SANCHEZ Administration Hydrophilic Ointment 1 applic 02/21/19 18:24 03/05/19 08:16 Vaseline Lip Therapy TP 1 applic Q2HR PRN Administration Dry Lips Sodium Chloride 100 mls @ 999 mls/hr 02/26/19 09:00 Nacl 0.9% IV UMA PRN Hypotension Insulin Human Regular 0 units 02/26/19 12:00 03/15/19 12:15 Humulin R SUB-Q Not Given Q6HR [facility] Protocol Metoprolol Tartrate 2.5 mg 02/28/19 12:06 03/15/19 05:15 Lopressor IV 2.5 mg Q4HR PRN Administration Tachycardia Metoprolol Tartrate 25 mg 03/02/19 14:00 03/15/19 08:56 Lopressor PO 25 mg TID SANCHEZ Administration Multi-Ingred Cream/Lotion/Oil/Oint 1 applic 02/21/19 18:24 Artificial Tears Ophth Oint OU Q4HR PRN Dry Eye(s) Ondansetron HCl 4 mg 02/21/19 22:19 03/12/19 21:39 Zofran IV 4 mg Q8H PRN Administration Nausea And Vomiting Risperidone 1 mg 02/25/19 13:00 03/15/19 09:00 Risperdal PO 1 mg DAILY SANCHEZ Administration Scopolamine 1 each 03/13/19 04:00 03/13/19 05:00 Transderm-Scop TD 1 each Q3D SANCHEZ Administration Sertraline HCl 100 mg 02/25/19 13:00 03/15/19 09:01 Zoloft PO 100 mg DAILY SANCHEZ Administration Simple Syrup 15 ml 03/05/19 14:04 Simple Syrup FEEDTUBE PRN PRN Hypoglycemia Simple Syrup 30 ml 03/05/19 14:04 Simple Syrup FEEDTUBE PRN PRN Hypoglycemia Sodium Bicarbonate 325 mg 03/05/19 14:04 Sodium Bicarbonate FEEDTUBE PRN PRN For Clogged Feeding Tube Sodium Chloride 10 ml 02/22/19 10:00 03/15/19 09:00 Sodium Chloride Flush Syringe 10 Ml IV 10 ml BID SANCHEZ Administration Sodium Chloride 10 ml 02/21/19 22:19 02/24/19 22:00 Sodium Chloride Flush Syringe 10 Ml IV 10 ml PRN PRN Administration LINE FLUSH Tramadol HCl 50 mg 03/05/19 10:08 03/12/19 21:39 Ultram PO 50 mg Q6H PRN Administration Pain, Moderate (4-6)
--- NOTE | 2019-03-15 15:39 | Progress Note ---
Assessment and Plan Imp: 1. Acute encephalopathy, probably metabolic or toxic 2. A/C systolic CHF 3. Dilated CMP 4. Pulm HTN 5. ESRD 6. RUL atelectasis, probably mucous plugging -> resolved Rec: 1. Chest PT with Melchor tristan 2. On Tpiece; wean FiO2 to keep sats > 88% 3. Avoid sedatives; resumed psych meds 4. DVT and GI PPx 5. TFs per PEG 6. Vascular eval. done re: LUE AV graft 7. HD per renal 8. Re: fevers -> repeated blood/sputum cultures; hold off ABX pending these results and clinical course; would consider ID consult if continued fevers (patient has had a lot of broad-spectrum ABX chronically) 9. Complex decision-making 10. Prognosis is poor No family present Subjective Date of service: 03/15/19 Principal diagnosis: respiratory failure Interval history: No events. Mentation near usual poor baseline. Having fevers. He cannot give history. Down to 35% FiO2 via Tpiece. Active Medications Acetaminophen (Tylenol) 650 mg PO Q4H PRN PRN Reason: Pain MILD(1-3)/Fever >100.5/HILL Last Admin: 03/14/19 21:16 Dose: 650 mg Documented by: Albuterol/Ipratropium (Duoneb *Not For Prn Use*) 1 ampul IH TIDRT [facility] Last Admin: 03/15/19 14:31 Dose: 1 ampul Documented by: Lipase/Protease/Amylase (Pancrejewel Barrientos 10,500 Unit) 1 each FEEDTUBE PRN PRN PRN Reason: For Clogged Feeding Tube Dextrose (D50w (25gm) Syringe) 50 ml IV PRN PRN PRN Reason: Hypoglycemia Last Admin: 03/03/19 17:37 Dose: 50 ml Documented by: Famotidine (Pepcid) 20 mg PO DAILY [facility] Last Admin: 03/15/19 09:00 Dose: 20 mg Documented by: Heparin Sodium (Porcine) (Heparin) 5,000 unit SUB-Q Q12HR [facility] Last Admin: 03/15/19 09:00 Dose: 5,000 unit Documented by: Hydrophilic Ointment (Vaseline Lip Therapy) 1 applic TP Q2HR PRN PRN Reason: Dry Lips Last Admin: 03/05/19 08:16 Dose: 1 applic Documented by: Sodium Chloride (Nacl 0.9%) 100 mls @ 999 mls/hr IV UMA PRN PRN Reason: Hypotension Insulin Human Regular (Humulin R) 0 units SUB-Q Q6HR [facility]; Protocol Last Admin: 03/15/19 12:15 Dose: Not Given Documented by: Metoprolol Tartrate (Lopressor) 2.5 mg IV Q4HR PRN PRN Reason: Tachycardia Last Admin: 03/15/19 05:15 Dose: 2.5 mg Documented by: Metoprolol Tartrate (Lopressor) 25 mg PO TID [facility] Last Admin: 03/15/19 14:53 Dose: 25 mg Documented by: Multi-Ingred Cream/Lotion/Oil/Oint (Artificial Tears Ophth Oint) 1 applic OU Q 4HR PRN PRN Reason: Dry Eye(s) Ondansetron HCl (Zofran) 4 mg IV Q8H PRN PRN Reason: Nausea And Vomiting Last Admin: 03/12/19 21:39 Dose: 4 mg Documented by: Risperidone (Risperdal) 1 mg PO DAILY [facility] Last Admin: 03/15/19 09:00 Dose: 1 mg Documented by: Scopolamine (Transderm-Scop) 1 each TD Q3D [facility] Last Admin: 03/13/19 05:00 Dose: 1 each Documented by: Sertraline HCl (Zoloft) 100 mg PO DAILY [facility] Last Admin: 03/15/19 09:01 Dose: 100 mg Documented by: Simple Syrup (Simple Syrup) 15 ml FEEDTUBE PRN PRN PRN Reason: Hypoglycemia Simple Syrup (Simple Syrup) 30 ml FEEDTUBE PRN PRN PRN Reason: Hypoglycemia Sodium Bicarbonate (Sodium Bicarbonate) 325 mg FEEDTUBE PRN PRN PRN Reason: For Clogged Feeding Tube Sodium Chloride (Sodium Chloride Flush Syringe 10 Ml) 10 ml IV BID [facility] Last Admin: 03/15/19 09:00 Dose: 10 ml Documented by: Sodium Chloride (Sodium Chloride Flush Syringe 10 Ml) 10 ml IV PRN PRN PRN Reason: LINE FLUSH Last Admin: 02/24/19 22:00 Dose: 10 ml Documented by: Tramadol HCl (Ultram) 50 mg PO Q6H PRN PRN Reason: Pain, Moderate (4-6) Last Admin: 03/12/19 21:39 Dose: 50 mg Documented by: Objective Vital Signs - 12hr 03/15/19 03/15/19 03/15/19 03:45 04:00 04:01 Temperature 97.5 F L Pulse Rate 110 H 110 H Pulse Rate [ Anterior Bilateral Throughout] Pulse Rate [ 109 H From Monitor] Respiratory 24 21 Rate Respiratory Rate [Anterior Bilateral Throughout] Blood Pressure 118/79 O2 Sat by Pulse 97 98 Oximetry O2 Sat by Pulse Oximetry [ Assessment] 03/15/19 03/15/19 03/15/19 05:00 05:15 06:01 Temperature Pulse Rate 110 H 128 H 121 H Pulse Rate [ Anterior Bilateral Throughout] Pulse Rate [ From Monitor] Respiratory 25 H 27 H Rate Respiratory Rate [Anterior Bilateral Throughout] Blood Pressure 134/74 134/74 143/74 O2 Sat by Pulse 98 97 Oximetry O2 Sat by Pulse Oximetry [ Assessment] 03/15/19 03/15/19 03/15/19 07:00 08:00 08:15 Temperature 100.8 F H Pulse Rate 111 H 112 H Pulse Rate [ 118 H Anterior Bilateral Throughout] Pulse Rate [ 112 H From Monitor] Respiratory 20 11 L Rate Respiratory 17 Rate [Anterior Bilateral Throughout] Blood Pressure 133/76 139/77 O2 Sat by Pulse 97 98 Oximetry O2 Sat by Pulse 98 Oximetry [ Assessment] 03/15/19 03/15/19 03/15/19 08:19 08:56 09:00 Temperature Pulse Rate 117 H 119 H Pulse Rate [ Anterior Bilateral Throughout] Pulse Rate [ From Monitor] Respiratory 27 H Rate Respiratory Rate [Anterior Bilateral Throughout] Blood Pressure 139/77 132/76 O2 Sat by Pulse 99 97 Oximetry O2 Sat by Pulse Oximetry [ Assessment] 03/15/19 03/15/19 03/15/19 10:00 11:00 12:00 Temperature 98.9 F Pulse Rate 117 H 113 H 112 H Pulse Rate [ Anterior Bilateral Throughout] Pulse Rate [ 110 H From Monitor] Respiratory 23 33 H 28 H Rate Respiratory Rate [Anterior Bilateral Throughout] Blood Pressure 129/72 124/61 120/62 O2 Sat by Pulse 92 96 99 Oximetry O2 Sat by Pulse Oximetry [ Assessment] 03/15/19 03/15/19 03/15/19 13:00 14:00 14:53 Temperature Pulse Rate 114 H 112 H 112 H Pulse Rate [ 113 H Anterior Bilateral Throughout] Pulse Rate [ From Monitor] Respiratory 30 H 31 H Rate Respiratory 12 Rate [Anterior Bilateral Throughout] Blood Pressure 120/60 120/57 120/57 O2 Sat by Pulse 100 97 Oximetry O2 Sat by Pulse Oximetry [ Assessment] 03/15/19 15:00 Temperature Pulse Rate 113 H Pulse Rate [ Anterior Bilateral Throughout] Pulse Rate [ From Monitor] Respiratory 22 Rate Respiratory Rate [Anterior Bilateral Throughout] Blood Pressure 120/61 O2 Sat by Pulse 95 Oximetry O2 Sat by Pulse Oximetry [ Assessment] Constitutional: no acute distress, alert Eyes: non-icteric ENT: oropharynx moist Neck: supple Effort: normal Ascultation: Bilateral: other (coarse BS bilaterally) Cardiovascular: other (tachy, RR; no mrg) Gastrointestinal: normoactive bowel sounds, soft, non-tender, non-distended, other (ostomy in place, brown stool) Extremities: no cyanosis, no edema, pink and warm Neurologic: other (mild weakness LUE, o/w nonfocal) Psychiatric: other (unable to assess) CBC and BMP: 03/15/19 04:38 03/15/19 04:38 ABG, PT/INR, D-dimer: ABG POC ABG pH 7.483 (7.35-7.45) H 02/27/19 04:35 ABG pH 7.435 pH Units (7.350-7.450) 03/09/19 13:53 POC ABG pCO2 37.5 (35-45) 02/27/19 04:35 ABG pCO2 46.5 mm Hg 03/09/19 13:53 POC ABG pO2 61 (80-105) L 02/27/19 04:35 ABG pO2 80.8 mm Hg (80.0-90.0) 03/09/19 13:53 POC ABG HCO3 28.1 (22-26 mml/L) 02/27/19 04:35 POC ABG Total CO2 29 (23-27mmol/L) 02/27/19 04:35 POC ABG O2 Sat 93 02/27/19 04:35 ABG O2 Saturation 96.5 % (95.0-99.0) 03/09/19 13:53 PT/INR, D-dimer PT 16.3 Sec. (12.2-14.9) H 03/01/19 09:39 INR 1.35 (0.87-1.13) H 03/01/19 09:39 2987.82 ng/mlDDU (0-234) H 02/22/19 05:54 Abnormal lab findings: Abnormal Labs 02/21/19 02/21/19 02/21/19 18:30 18:30 18:30 WBC RBC 3.26 L Hgb 8.8 L Hct 29.0 L MCH 27 L MCHC 30 L RDW 19.1 H Lymph % (Auto) 6.1 L Hale % (Auto) Eos % (Auto) Lymph # 0.4 L Hale # Eos # Seg Neutrophils % 86.2 H Seg Neutrophils # PT INR D-Dimer POC ABG pH POC ABG pCO2 POC ABG pO2 ABG HCO3 ABG Base Excess ABG Hemoglobin Oxyhemoglobin Sodium 133 L Potassium 3.3 L Chloride 93.1 L Carbon Dioxide 33 H BUN Creatinine Glucose 161 H POC Glucose Calcium Phosphorus ALT Alkaline Phosphatase 136 H Total Creatine Kinase 37 L CK-MB (CK-2) Rel Index Troponin T 0.192 H* Albumin 2.4 L LDL Cholesterol Direct 36 L PTH Intact Salicylates Acetaminophen Crossmatch 02/21/19 02/21/19 02/21/19 18:42 20:04 20:04 WBC RBC Hgb Hct MCH MCHC RDW Lymph % (Auto) Hale % (Auto) Eos % (Auto) Lymph # Hale # Eos # Seg Neutrophils % Seg Neutrophils # PT INR D-Dimer POC ABG pH POC ABG pCO2 56.7 H POC ABG pO2 291 H ABG HCO3 ABG Base Excess ABG Hemoglobin Oxyhemoglobin Sodium Potassium Chloride Carbon Dioxide BUN Creatinine Glucose POC Glucose Calcium Phosphorus ALT Alkaline Phosphatase Total Creatine Kinase CK-MB (CK-2) Rel Index Troponin T Albumin LDL Cholesterol Direct PTH Intact Salicylates < 0.3 L Acetaminophen < 5.0 L Crossmatch 02/21/19 02/22/19 02/22/19 22:35 03:42 03:42 WBC RBC 3.20 L Hgb 8.8 L Hct 27.6 L MCH MCHC RDW 18.9 H Lymph % (Auto) 7.4 L Hale % (Auto) Eos % (Auto) Lymph # 0.7 L Hale # Eos # Seg Neutrophils % 84.7 H Seg Neutrophils # PT INR D-Dimer POC ABG pH POC ABG pCO2 POC ABG pO2 ABG HCO3 ABG Base Excess ABG Hemoglobin Oxyhemoglobin Sodium 134 L Potassium 2.6 L* D Chloride Carbon Dioxide BUN Creatinine Glucose POC Glucose Calcium Phosphorus ALT Alkaline Phosphatase Total Creatine Kinase CK-MB (CK-2) Rel Index 5.2 H Troponin T 0.202 H* Albumin LDL Cholesterol Direct PTH Intact Salicylates Acetaminophen Crossmatch 02/22/19 02/22/19 02/22/19 03:42 05:54 09:04 WBC RBC Hgb Hct MCH MCHC RDW Lymph % (Auto) Hale % (Auto) Eos % (Auto) Lymph # Hale # Eos # Seg Neutrophils % Seg Neutrophils # PT INR D-Dimer 2987.82 H POC ABG pH 7.451 H POC ABG pCO2 POC ABG pO2 ABG HCO3 ABG Base Excess ABG Hemoglobin Oxyhemoglobin Sodium Potassium Chloride Carbon Dioxide BUN Creatinine Glucose POC Glucose Calcium Phosphorus ALT Alkaline Phosphatase Total Creatine Kinase CK-MB (CK-2) Rel Index 5.7 H Troponin T 0.193 H* Albumin LDL Cholesterol Direct PTH Intact Salicylates Acetaminophen Crossmatch 02/22/19 02/22/19 02/23/19 10:36 23:56 00:52 WBC RBC Hgb Hct MCH MCHC RDW Lymph % (Auto) Hale % (Auto) Eos % (Auto) Lymph # Hale # Eos # Seg Neutrophils % Seg Neutrophils # PT INR D-Dimer POC ABG pH POC ABG pCO2 POC ABG pO2 ABG HCO3 ABG Base Excess ABG Hemoglobin Oxyhemoglobin Sodium Potassium 3.1 L Chloride Carbon Dioxide BUN Creatinine Glucose POC Glucose 58 L 111 H Calcium Phosphorus ALT Alkaline Phosphatase Total Creatine Kinase CK-MB (CK-2) Rel Index Troponin T Albumin LDL Cholesterol Direct PTH Intact Salicylates Acetaminophen Crossmatch 02/23/19 02/23/19 02/23/19 05:00 06:35 14:26 WBC RBC Hgb Hct MCH MCHC RDW Lymph % (Auto) Hale % (Auto) Eos % (Auto) Lymph # Hale # Eos # Seg Neutrophils % Seg Neutrophils # PT INR D-Dimer POC ABG pH POC ABG pCO2 POC ABG pO2 ABG HCO3 ABG Base Excess ABG Hemoglobin Oxyhemoglobin Sodium 135 L Potassium 3.1 L Chloride Carbon Dioxide BUN 21 H Creatinine 2.0 H Glucose 57 L POC Glucose 64 L 62 L Calcium Phosphorus ALT Alkaline Phosphatase Total Creatine Kinase CK-MB (CK-2) Rel Index Troponin T Albumin LDL Cholesterol Direct PTH Intact Salicylates Acetaminophen Crossmatch 02/24/19 02/24/19 02/24/19 02:11 04:12 04:55 WBC RBC 2.84 L Hgb 7.8 L Hct 24.5 L MCH MCHC RDW 19.5 H Lymph % (Auto) Hale % (Auto) Eos % (Auto) Lymph # Hale # Eos # Seg Neutrophils % Seg Neutrophils # PT INR D-Dimer POC ABG pH 7.511 H POC ABG pCO2 33.9 L POC ABG pO2 62 L ABG HCO3 ABG Base Excess ABG Hemoglobin Oxyhemoglobin Sodium Potassium Chloride Carbon Dioxide BUN Creatinine Glucose POC Glucose 69 L Calcium Phosphorus ALT Alkaline Phosphatase Total Creatine Kinase CK-MB (CK-2) Rel Index Troponin T Albumin LDL Cholesterol Direct PTH Intact Salicylates Acetaminophen Crossmatch 02/24/19 02/24/19 02/25/19 04:55 05:41 04:45 WBC RBC Hgb Hct MCH MCHC RDW Lymph % (Auto) Hale % (Auto) Eos % (Auto) Lymph # Hale # Eos # Seg Neutrophils % Seg Neutrophils # PT INR D-Dimer POC ABG pH 7.466 H POC ABG pCO2 POC ABG pO2 75 L ABG HCO3 ABG Base Excess ABG Hemoglobin Oxyhemoglobin Sodium Potassium Chloride Carbon Dioxide BUN Creatinine 1.8 H Glucose 73 L POC Glucose 127 H Calcium Phosphorus ALT Alkaline Phosphatase Total Creatine Kinase CK-MB (CK-2) Rel Index Troponin T Albumin LDL Cholesterol Direct PTH Intact Salicylates Acetaminophen Crossmatch 02/25/19 02/25/19 02/26/19 16:34 21:33 03:45 WBC RBC 2.96 L Hgb 8.0 L Hct 25.8 L MCH 27 L MCHC 31 L RDW 20.0 H Lymph % (Auto) Hale % (Auto) Eos % (Auto) Lymph # Hale # Eos # Seg Neutrophils % Seg Neutrophils # PT INR D-Dimer POC ABG pH POC ABG pCO2 POC ABG pO2 ABG HCO3 ABG Base Excess ABG Hemoglobin Oxyhemoglobin Sodium Potassium Chloride Carbon Dioxide BUN Creatinine Glucose POC Glucose 141 H 106 H Calcium Phosphorus ALT Alkaline Phosphatase Total Creatine Kinase CK-MB (CK-2) Rel Index Troponin T Albumin LDL Cholesterol Direct PTH Intact Salicylates Acetaminophen Crossmatch 02/26/19 02/26/19 02/26/19 03:45 04:13 07:53 WBC RBC Hgb Hct MCH MCHC RDW Lymph % (Auto) Hale % (Auto) Eos % (Auto) Lymph # Hale # Eos # Seg Neutrophils % Seg Neutrophils # PT INR D-Dimer POC ABG pH 7.470 H POC ABG pCO2 POC ABG pO2 ABG HCO3 ABG Base Excess ABG Hemoglobin Oxyhemoglobin Sodium Potassium Chloride Carbon Dioxide BUN Creatinine 1.8 H Glucose POC Glucose 110 H Calcium Phosphorus ALT Alkaline Phosphatase Total Creatine Kinase CK-MB (CK-2) Rel Index Troponin T Albumin LDL Cholesterol Direct PTH Intact Salicylates Acetaminophen Crossmatch 02/26/19 02/26/19 02/27/19 11:56 17:43 00:12 WBC RBC Hgb Hct MCH MCHC RDW Lymph % (Auto) Hale % (Auto) Eos % (Auto) Lymph # Hale # Eos # Seg Neutrophils % Seg Neutrophils # PT INR D-Dimer POC ABG pH POC ABG pCO2 POC ABG pO2 ABG HCO3 ABG Base Excess ABG Hemoglobin Oxyhemoglobin Sodium Potassium Chloride Carbon Dioxide BUN Creatinine Glucose POC Glucose 112 H 127 H 127 H Calcium Phosphorus ALT Alkaline Phosphatase Total Creatine Kinase CK-MB (CK-2) Rel Index Troponin T Albumin LDL Cholesterol Direct PTH Intact Salicylates Acetaminophen Crossmatch 02/27/19 02/27/19 02/27/19 04:35 13:15 18:02 WBC RBC Hgb Hct MCH MCHC RDW Lymph % (Auto) Hale % (Auto) Eos % (Auto) Lymph # Hale # Eos # Seg Neutrophils % Seg Neutrophils # PT INR D-Dimer POC ABG pH 7.483 H POC ABG pCO2 POC ABG pO2 61 L ABG HCO3 ABG Base Excess ABG Hemoglobin Oxyhemoglobin Sodium Potassium Chloride Carbon Dioxide BUN Creatinine Glucose POC Glucose 143 H 106 H Calcium Phosphorus ALT Alkaline Phosphatase Total Creatine Kinase CK-MB (CK-2) Rel Index Troponin T Albumin LDL Cholesterol Direct PTH Intact Salicylates Acetaminophen Crossmatch 02/28/19 02/28/19 02/28/19 05:50 11:59 17:52 WBC RBC Hgb Hct MCH MCHC RDW Lymph % (Auto) Hale % (Auto) Eos % (Auto) Lymph # Hale # Eos # Seg Neutrophils % Seg Neutrophils # PT INR D-Dimer POC ABG pH POC ABG pCO2 POC ABG pO2 ABG HCO3 ABG Base Excess ABG Hemoglobin Oxyhemoglobin Sodium Potassium Chloride Carbon Dioxide BUN Creatinine Glucose POC Glucose 134 H 128 H 142 H Calcium Phosphorus ALT Alkaline Phosphatase Total Creatine Kinase CK-MB (CK-2) Rel Index Troponin T Albumin LDL Cholesterol Direct PTH Intact Salicylates Acetaminophen Crossmatch 02/28/19 03/01/19 03/01/19 23:13 05:40 09:39 WBC RBC Hgb Hct MCH MCHC RDW Lymph % (Auto) Hale % (Auto) Eos % (Auto) Lymph # Hale # Eos # Seg Neutrophils % Seg Neutrophils # PT 16.3 H INR 1.35 H D-Dimer POC ABG pH POC ABG pCO2 POC ABG pO2 ABG HCO3 ABG Base Excess ABG Hemoglobin Oxyhemoglobin Sodium Potassium Chloride Carbon Dioxide BUN Creatinine Glucose POC Glucose 112 H 111 H Calcium Phosphorus ALT Alkaline Phosphatase Total Creatine Kinase CK-MB (CK-2) Rel Index Troponin T Albumin LDL Cholesterol Direct PTH Intact Salicylates Acetaminophen Crossmatch 03/01/19 03/01/19 03/01/19 11:56 13:54 17:59 WBC RBC Hgb Hct MCH MCHC RDW Lymph % (Auto) Hale % (Auto) Eos % (Auto) Lymph # Hale # Eos # Seg Neutrophils % Seg Neutrophils # PT INR D-Dimer POC ABG pH POC ABG pCO2 POC ABG pO2 ABG HCO3 ABG Base Excess ABG Hemoglobin Oxyhemoglobin Sodium Potassium Chloride Carbon Dioxide BUN 33 H Creatinine 2.8 H D Glucose 176 H POC Glucose 199 H 147 H Calcium Phosphorus ALT Alkaline Phosphatase Total Creatine Kinase CK-MB (CK-2) Rel Index Troponin T Albumin LDL Cholesterol Direct PTH Intact Salicylates Acetaminophen Crossmatch 03/02/19 03/02/19 03/02/19 05:15 05:15 05:15 WBC RBC 2.73 L Hgb 7.4 L Hct 23.0 L MCH 27 L MCHC RDW 19.9 H Lymph % (Auto) Hale % (Auto) 7.9 H Eos % (Auto) 7.6 H Lymph # 1.0 L Hale # Eos # 0.5 H Seg Neutrophils % Seg Neutrophils # PT INR D-Dimer POC ABG pH POC ABG pCO2 POC ABG pO2 ABG HCO3 ABG Base Excess ABG Hemoglobin Oxyhemoglobin Sodium Potassium Chloride Carbon Dioxide BUN 43 H Creatinine 3.2 H Glucose POC Glucose Calcium Phosphorus 2.30 L ALT Alkaline Phosphatase Total Creatine Kinase CK-MB (CK-2) Rel Index Troponin T Albumin LDL Cholesterol Direct PTH Intact 267.6 H Salicylates Acetaminophen Crossmatch 03/02/19 03/02/19 03/03/19 12:32 18:20 13:30 WBC RBC Hgb Hct MCH MCHC RDW Lymph % (Auto) Hale % (Auto) Eos % (Auto) Lymph # Hale # Eos # Seg Neutrophils % Seg Neutrophils # PT INR D-Dimer POC ABG pH POC ABG pCO2 POC ABG pO2 ABG HCO3 ABG Base Excess ABG Hemoglobin Oxyhemoglobin Sodium Potassium Chloride 97.3 L Carbon Dioxide BUN 26 H Creatinine 2.2 H Glucose 73 L POC Glucose 111 H 156 H Calcium Phosphorus ALT Alkaline Phosphatase Total Creatine Kinase CK-MB (CK-2) Rel Index Troponin T Albumin LDL Cholesterol Direct PTH Intact Salicylates Acetaminophen Crossmatch 03/04/19 03/04/19 03/04/19 00:02 05:37 05:40 WBC RBC 2.63 L Hgb 7.2 L Hct 22.2 L MCH MCHC RDW 20.2 H Lymph % (Auto) 10.5 L Hale % (Auto) Eos % (Auto) 4.6 H Lymph # 0.7 L Hale # Eos # Seg Neutrophils % 76.9 H Seg Neutrophils # PT INR D-Dimer POC ABG pH POC ABG pCO2 POC ABG pO2 ABG HCO3 ABG Base Excess ABG Hemoglobin Oxyhemoglobin Sodium Potassium Chloride Carbon Dioxide BUN Creatinine Glucose POC Glucose 136 H 123 H Calcium Phosphorus ALT Alkaline Phosphatase Total Creatine Kinase CK-MB (CK-2) Rel Index Troponin T Albumin LDL Cholesterol Direct PTH Intact Salicylates Acetaminophen Crossmatch 03/04/19 03/04/19 03/04/19 05:40 11:39 23:20 WBC RBC Hgb Hct MCH MCHC RDW Lymph % (Auto) Hale % (Auto) Eos % (Auto) Lymph # Hale # Eos # Seg Neutrophils % Seg Neutrophils # PT INR D-Dimer POC ABG pH POC ABG pCO2 POC ABG pO2 ABG HCO3 ABG Base Excess ABG Hemoglobin Oxyhemoglobin Sodium Potassium Chloride Carbon Dioxide BUN 34 H Creatinine 2.7 H Glucose 114 H POC Glucose 175 H 151 H Calcium Phosphorus ALT Alkaline Phosphatase Total Creatine Kinase CK-MB (CK-2) Rel Index Troponin T Albumin LDL Cholesterol Direct PTH Intact Salicylates Acetaminophen Crossmatch 03/05/19 03/05/19 03/05/19 05:37 12:08 17:11 WBC RBC Hgb Hct MCH MCHC RDW Lymph % (Auto) Hale % (Auto) Eos % (Auto) Lymph # Hale # Eos # Seg Neutrophils % Seg Neutrophils # PT INR D-Dimer POC ABG pH POC ABG pCO2 POC ABG pO2 ABG HCO3 ABG Base Excess ABG Hemoglobin Oxyhemoglobin Sodium Potassium Chloride Carbon Dioxide BUN Creatinine Glucose POC Glucose 134 H 135 H 135 H Calcium Phosphorus ALT Alkaline Phosphatase Total Creatine Kinase CK-MB (CK-2) Rel Index Troponin T Albumin LDL Cholesterol Direct PTH Intact Salicylates Acetaminophen Crossmatch 03/06/19 03/06/19 03/06/19 00:16 13:05 18:09 WBC RBC Hgb Hct MCH MCHC RDW Lymph % (Auto) Hale % (Auto) Eos % (Auto) Lymph # Hale # Eos # Seg Neutrophils % Seg Neutrophils # PT INR D-Dimer POC ABG pH POC ABG pCO2 POC ABG pO2 ABG HCO3 ABG Base Excess ABG Hemoglobin Oxyhemoglobin Sodium Potassium Chloride Carbon Dioxide BUN Creatinine Glucose POC Glucose 117 H 113 H 131 H Calcium Phosphorus ALT Alkaline Phosphatase Total Creatine Kinase CK-MB (CK-2) Rel Index Troponin T Albumin LDL Cholesterol Direct PTH Intact Salicylates Acetaminophen Crossmatch 03/07/19 03/08/19 03/08/19 05:25 05:33 16:00 WBC RBC 2.44 L Hgb 6.6 L Hct 20.8 L MCH 27 L MCHC RDW 19.2 H Lymph % (Auto) Hale % (Auto) Eos % (Auto) 8.6 H Lymph # 0.8 L Hale # Eos # 0.5 H Seg Neutrophils % 70.7 H Seg Neutrophils # PT INR D-Dimer POC ABG pH POC ABG pCO2 POC ABG pO2 ABG HCO3 ABG Base Excess ABG Hemoglobin Oxyhemoglobin Sodium Potassium Chloride Carbon Dioxide BUN Creatinine Glucose POC Glucose 106 H 108 H Calcium Phosphorus ALT Alkaline Phosphatase Total Creatine Kinase CK-MB (CK-2) Rel Index Troponin T Albumin LDL Cholesterol Direct PTH Intact Salicylates Acetaminophen Crossmatch 03/08/19 03/08/19 03/08/19 16:00 18:38 Unknown WBC RBC Hgb Hct MCH MCHC RDW Lymph % (Auto) Hale % (Auto) Eos % (Auto) Lymph # Hale # Eos # Seg Neutrophils % Seg Neutrophils # PT INR D-Dimer POC ABG pH POC ABG pCO2 POC ABG pO2 ABG HCO3 ABG Base Excess ABG Hemoglobin Oxyhemoglobin Sodium Potassium 5.4 H D Chloride Carbon Dioxide BUN 47 H Creatinine 2.6 H Glucose POC Glucose 123 H Calcium Phosphorus ALT < 5 L Alkaline Phosphatase Total Creatine Kinase CK-MB (CK-2) Rel Index Troponin T Albumin 2.2 L LDL Cholesterol Direct PTH Intact Salicylates Acetaminophen Crossmatch See Detail 03/09/19 03/09/19 03/09/19 10:48 12:28 13:53 WBC RBC 2.85 L Hgb 7.7 L Hct 24.2 L MCH 27 L MCHC RDW 18.7 H Lymph % (Auto) Hale % (Auto) Eos % (Auto) Lymph # Hale # Eos # Seg Neutrophils % Seg Neutrophils # PT INR D-Dimer POC ABG pH POC ABG pCO2 POC ABG pO2 ABG HCO3 30.5 H ABG Base Excess 5.6 H ABG Hemoglobin 8.1 L Oxyhemoglobin 93.8 L Sodium Potassium Chloride Carbon Dioxide BUN Creatinine Glucose POC Glucose 114 H Calcium Phosphorus ALT Alkaline Phosphatase Total Creatine Kinase CK-MB (CK-2) Rel Index Troponin T Albumin LDL Cholesterol Direct PTH Intact Salicylates Acetaminophen Crossmatch 03/09/19 03/09/19 03/10/19 17:58 23:53 12:01 WBC RBC Hgb Hct MCH MCHC RDW Lymph % (Auto) Hale % (Auto) Eos % (Auto) Lymph # Hale # Eos # Seg Neutrophils % Seg Neutrophils # PT INR D-Dimer POC ABG pH POC ABG pCO2 POC ABG pO2 ABG HCO3 ABG Base Excess ABG Hemoglobin Oxyhemoglobin Sodium Potassium Chloride Carbon Dioxide BUN Creatinine Glucose POC Glucose 108 H 128 H 144 H Calcium Phosphorus ALT Alkaline Phosphatase Total Creatine Kinase CK-MB (CK-2) Rel Index Troponin T Albumin LDL Cholesterol Direct PTH Intact Salicylates Acetaminophen Crossmatch 03/10/19 03/11/19 03/11/19 16:50 00:24 05:02 WBC RBC Hgb Hct MCH MCHC RDW Lymph % (Auto) Hale % (Auto) Eos % (Auto) Lymph # Hale # Eos # Seg Neutrophils % Seg Neutrophils # PT INR D-Dimer POC ABG pH POC ABG pCO2 POC ABG pO2 ABG HCO3 ABG Base Excess ABG Hemoglobin Oxyhemoglobin Sodium Potassium Chloride Carbon Dioxide BUN Creatinine Glucose POC Glucose 147 H 123 H 120 H Calcium Phosphorus ALT Alkaline Phosphatase Total Creatine Kinase CK-MB (CK-2) Rel Index Troponin T Albumin LDL Cholesterol Direct PTH Intact Salicylates Acetaminophen Crossmatch 03/11/19 03/11/19 03/11/19 11:56 12:20 18:37 WBC RBC Hgb Hct MCH MCHC RDW Lymph % (Auto) Hale % (Auto) Eos % (Auto) Lymph # Hale # Eos # Seg Neutrophils % Seg Neutrophils # PT INR D-Dimer POC ABG pH POC ABG pCO2 POC ABG pO2 ABG HCO3 ABG Base Excess ABG Hemoglobin Oxyhemoglobin Sodium Potassium 5.2 H Chloride Carbon Dioxide BUN Creatinine Glucose POC Glucose 123 H 125 H Calcium Phosphorus ALT Alkaline Phosphatase Total Creatine Kinase CK-MB (CK-2) Rel Index Troponin T Albumin LDL Cholesterol Direct PTH Intact Salicylates Acetaminophen Crossmatch 03/11/19 03/12/19 03/12/19 22:52 12:04 18:25 WBC RBC Hgb Hct MCH MCHC RDW Lymph % (Auto) Hale % (Auto) Eos % (Auto) Lymph # Hale # Eos # Seg Neutrophils % Seg Neutrophils # PT INR D-Dimer POC ABG pH POC ABG pCO2 POC ABG pO2 ABG HCO3 ABG Base Excess ABG Hemoglobin Oxyhemoglobin Sodium Potassium Chloride Carbon Dioxide BUN Creatinine Glucose POC Glucose 110 H 106 H 118 H Calcium Phosphorus ALT Alkaline Phosphatase Total Creatine Kinase CK-MB (CK-2) Rel Index Troponin T Albumin LDL Cholesterol Direct PTH Intact Salicylates Acetaminophen Crossmatch 03/12/19 03/13/19 03/13/19 23:36 04:38 04:38 WBC RBC 2.95 L Hgb 7.9 L Hct 24.9 L MCH 27 L MCHC RDW 19.9 H Lymph % (Auto) 11.1 L Hale % (Auto) 8.1 H Eos % (Auto) 4.4 H Lymph # 0.9 L Hale # Eos # Seg Neutrophils % 75.4 H Seg Neutrophils # PT INR D-Dimer POC ABG pH POC ABG pCO2 POC ABG pO2 ABG HCO3 ABG Base Excess ABG Hemoglobin Oxyhemoglobin Sodium 136 L Potassium 5.1 H Chloride 93.8 L Carbon Dioxide BUN 48 H Creatinine 2.7 H Glucose 102 H POC Glucose 115 H Calcium Phosphorus ALT < 5 L Alkaline Phosphatase 143 H Total Creatine Kinase CK-MB (CK-2) Rel Index Troponin T Albumin 2.5 L LDL Cholesterol Direct PTH Intact Salicylates Acetaminophen Crossmatch 03/13/19 03/13/19 03/13/19 05:33 13:37 18:03 WBC RBC Hgb Hct MCH MCHC RDW Lymph % (Auto) Hale % (Auto) Eos % (Auto) Lymph # Hale # Eos # Seg Neutrophils % Seg Neutrophils # PT INR D-Dimer POC ABG pH POC ABG pCO2 POC ABG pO2 ABG HCO3 ABG Base Excess ABG Hemoglobin Oxyhemoglobin Sodium Potassium Chloride Carbon Dioxide BUN Creatinine Glucose POC Glucose 140 H 150 H 158 H Calcium Phosphorus ALT Alkaline Phosphatase Total Creatine Kinase CK-MB (CK-2) Rel Index Troponin T Albumin LDL Cholesterol Direct PTH Intact Salicylates Acetaminophen Crossmatch 03/13/19 03/14/19 03/14/19 23:32 05:24 12:20 WBC RBC Hgb Hct MCH MCHC RDW Lymph % (Auto) Hale % (Auto) Eos % (Auto) Lymph # Hale # Eos # Seg Neutrophils % Seg Neutrophils # PT INR D-Dimer POC ABG pH POC ABG pCO2 POC ABG pO2 ABG HCO3 ABG Base Excess ABG Hemoglobin Oxyhemoglobin Sodium Potassium Chloride Carbon Dioxide BUN Creatinine Glucose POC Glucose 162 H 146 H 127 H Calcium Phosphorus ALT Alkaline Phosphatase Total Creatine Kinase CK-MB (CK-2) Rel Index Troponin T Albumin LDL Cholesterol Direct PTH Intact Salicylates Acetaminophen Crossmatch 03/14/19 03/14/19 03/15/19 18:05 23:57 04:38 WBC 12.8 H RBC 3.11 L Hgb 8.1 L Hct 26.5 L MCH 26 L MCHC 31 L RDW 19.7 H Lymph % (Auto) 4.4 L Hale % (Auto) 7.4 H Eos % (Auto) Lymph # 0.6 L Hale # 0.9 H Eos # Seg Neutrophils % 87.3 H Seg Neutrophils # 11.2 H PT INR D-Dimer POC ABG pH POC ABG pCO2 POC ABG pO2 ABG HCO3 ABG Base Excess ABG Hemoglobin Oxyhemoglobin Sodium Potassium Chloride Carbon Dioxide BUN Creatinine Glucose POC Glucose 142 H 155 H Calcium Phosphorus ALT Alkaline Phosphatase Total Creatine Kinase CK-MB (CK-2) Rel Index Troponin T Albumin LDL Cholesterol Direct PTH Intact Salicylates Acetaminophen Crossmatch 03/15/19 03/15/19 03/15/19 04:38 05:31 11:32 WBC RBC Hgb Hct MCH MCHC RDW Lymph % (Auto) Hale % (Auto) Eos % (Auto) Lymph # Hale # Eos # Seg Neutrophils % Seg Neutrophils # PT INR D-Dimer POC ABG pH POC ABG pCO2 POC ABG pO2 ABG HCO3 ABG Base Excess ABG Hemoglobin Oxyhemoglobin Sodium 135 L Potassium Chloride 91.9 L Carbon Dioxide BUN 54 H Creatinine 2.8 H Glucose 128 H POC Glucose 160 H 109 H Calcium 11.1 H Phosphorus ALT Alkaline Phosphatase 161 H Total Creatine Kinase CK-MB (CK-2) Rel Index Troponin T Albumin 2.3 L LDL Cholesterol Direct PTH Intact Salicylates Acetaminophen Crossmatch Chest x-ray: report reviewed, image reviewed (no change in bilateral infiltrates)
--- NOTE | 2019-03-15 22:16 | Progress Note ---
Assessment and Plan Assessment and plan: Patient is a 63-year-old -[place] man from [facility] with a plethora of co-morbidities including blindness, CVA, CHF, PPM/ICD, loop recorder since 2012 that is MRI compatible, IDDM type 2, sepsis left foot ulcer, afib, ESRD with complications on HD TTS, hypertension, AOCD and GERD who presented to the ED with hypotensive after intubation in the emergency room. diagnosed with fluid overload, pleural effusion. Patient has had recurrent admission in the hospital for similar reason and was recently discharged from the hospital following treatment of Severe Sepsis due to Necrotizing Unstagable sacral decubitus ulcer with ostemomylitis, has received multiple courses of broad spectrum abx. FEver fup cultures, monitor fever curve Acute respiratory failure on mechanical ventilator >96 hrs - Currently on trach/peg placed on 03/03 off vent since 03/09, cont oxygen supplement, improving, on t piece acute on chronc systolic CHF/ Acute pulmonary edema, improved with UF Dilated CMP, EF 35-40% Continue diuresis Acute metabolic encephalopathy, resolved, has baseline Dementia ESRD on hemodialysis nephrology following Bilateral pleural effusions improved with HD Permanent atrial fibrillation and flutter and hypercoaguable state Not on anticoagulation because of anemia thrombocytopenia rate control meds optimizeds Diabetes mellitus type 2 SSI NSTEMI type 2 Cardiology following Schizophrenia Legally blind supportive care hypertension Monitor BP Hypokalemia replaced Pulmonary hypertension Dysphagia s/p PEG tube Sacral decub ulcer Wound Nurse consulted Severe malnutrition /hypoalbuminemia with FTT: 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, on air personality following PEG placed on 01/02/19 decubitus ulcer s/ post colostomy Left 5th finger, stage 4 pressure ulcer Left heel, deep tissue injury Sacrum, stage 4 pressure ulcer POA Continue wound care History of sacral osteomyelitis and LE ulcers Completed Antibiotics Place on contact isolation for ESBL Klebsiella pneumonia on wound culture 01/02/19 Schizophrenia h/o Peripheral neuropathy: Continue gabapentin Pulm HTN Anemia of chronic disease sp 1 unit of prbc , stable RUL atelectasis, probably mucous plugging DVT prophylaxis Lovenox Full code status poor prognosis DIspo; unable to be placed in ltac, unable to find any NH to take patient. REcommend inpatient hospice, but family is not agreeable at this time. Plan another family meeting and ethic consult The high probability of a clinically significant, sudden or life threatening deterioration of the [pulmonary, neuro, renal] system(s) required my full and direct attention, intervention and personal management. The aggregate critical care time was [35] minutes. This time is in addition to time spent performing reported procedures but includes the following: [x] Data Review and interpretation [x] Patient assessment and monitoring of vital signs [] Documentation [x] Medication orders and management History Interval history: having fevers remains demented no vomiting, no agitation, no seizures Hospitalist Physical - Physical exam Narrative exam: Constitutional: no acute distress, opens eyes, says hello Eyes: non-icteric ENT: oropharynx moist Neck: supple Effort: normal Ascultation: Bilateral: other (coarse BS bilaterally) Percussion: Bilateral: not dull Cardiovascular: regular rate and rhythm (no mrg) Gastrointestinal: normoactive bowel sounds, soft, non-tender, non-distended, other (ostomy in place, brown stool) Extremities: no cyanosis, no edema, pink and warm Neurologic: other (mild weakness LUE, o/w nonfocal), demented Psychiatric: other (unable to assess) SKIN; Left 5th finger, stage 4 pressure ulcer,Left heel, deep tissue injury, Sacrum, stage 4 pressure ulcer POA - Constitutional Vitals: Temp Pulse Resp BP Pulse Ox 100.1 F H 111 H 19 125/73 95 03/15/19 20:00 03/15/19 20:54 03/15/19 18:00 03/15/19 20:54 03/15/19 18:00 General appearance: Present: no acute distress, well-nourished Results - Labs CBC & Chem 7: 03/15/19 04:38 03/15/19 04:38 Labs: Laboratory Last Values WBC 12.8 K/mm3 (4.5-11.0) H 03/15/19 04:38 RBC 3.11 M/mm3 (3.65-5.03) L 03/15/19 04:38 Hgb 8.1 gm/dl (11.8-15.2) L 03/15/19 04:38 Hct 26.5 % (35.5-45.6) L 03/15/19 04:38 MCV 85 fl (84-94) 03/15/19 04:38 MCH 26 pg (28-32) L 03/15/19 04:38 MCHC 31 % (32-34) L 03/15/19 04:38 RDW 19.7 % (13.2-15.2) H 03/15/19 04:38 Plt Count 322 K/mm3 (140-440) 03/15/19 04:38 Lymph % (Auto) 4.4 % (13.4-35.0) L 03/15/19 04:38 [place] % (Auto) 7.4 % (0.0-7.3) H 03/15/19 04:38 Eos % (Auto) 0.3 % (0.0-4.3) 03/15/19 04:38 Baso % (Auto) 0.6 % (0.0-1.8) 03/15/19 04:38 Lymph # 0.6 K/mm3 (1.2-5.4) L 03/15/19 04:38 [place] # 0.9 K/mm3 (0.0-0.8) H 03/15/19 04:38 Eos # 0.0 K/mm3 (0.0-0.4) 03/15/19 04:38 Baso # 0.1 K/mm3 (0.0-0.1) 03/15/19 04:38 Seg Neutrophils % 87.3 % (40.0-70.0) H 03/15/19 04:38 Seg Neutrophils # 11.2 K/mm3 (1.8-7.7) H 03/15/19 04:38 PT 16.3 Sec. (12.2-14.9) H 03/01/19 09:39 INR 1.35 (0.87-1.13) H 03/01/19 09:39 APTT 33.7 Sec. (24.2-36.6) 02/21/19 18:30 2987.82 ng/mlDDU (0-234) H 02/22/19 05:54 POC ABG pH 7.483 (7.35-7.45) H 02/27/19 04:35 ABG pH 7.435 pH Units (7.350-7.450) 03/09/19 13:53 POC ABG pCO2 37.5 (35-45) 02/27/19 04:35 ABG pCO2 46.5 mm Hg 03/09/19 13:53 POC ABG pO2 61 (80-105) L 02/27/19 04:35 ABG pO2 80.8 mm Hg (80.0-90.0) 03/09/19 13:53 POC ABG HCO3 28.1 (22-26 mml/L) 02/27/19 04:35 ABG HCO3 30.5 mmol/L (20.0-26.0) H 03/09/19 13:53 POC ABG Total CO2 29 (23-27mmol/L) 02/27/19 04:35 POC ABG O2 Sat 93 02/27/19 04:35 ABG O2 Saturation 96.5 % (95.0-99.0) 03/09/19 13:53 ABG O2 Content 10.8 (0.0-44) 03/09/19 13:53 POC ABG Base Excess 5 ((-2) - (+3)mmol/L) 02/27/19 04:35 ABG Base Excess 5.6 mmol/L (-2.0-3.0) H 03/09/19 13:53 ABG Hemoglobin 8.1 gm/dl (14.0-18.0) L 03/09/19 13:53 ABG Carboxyhemoglobin 2.4 % (0.0-5.0) 03/09/19 13:53 ABG Methemoglobin 0.4 % (0.0-1.5) 03/09/19 13:53 93.8 % (95.0-99.0) L 03/09/19 13:53 25 % 03/09/19 13:53 Sodium 135 mmol/L (137-145) L 03/15/19 04:38 Potassium 5.0 mmol/L (3.6-5.0) 03/15/19 04:38 Chloride 91.9 mmol/L (98-107) L 03/15/19 04:38 Carbon Dioxide 29 mmol/L (22-30) 03/15/19 04:38 19 mmol/L 03/15/19 04:38 BUN 54 mg/dL (9-20) H 03/15/19 04:38 2.8 mg/dL (0.8-1.5) H 03/15/19 04:38 Estimated GFR 28 ml/min 03/15/19 04:38 19 % 03/15/19 04:38 Glucose 128 mg/dL (75-100) H 03/15/19 04:38 POC Glucose 151 (70-105) H 03/15/19 18:15 Lactic Acid 1.00 mmol/L (0.7-2.0) 02/21/19 20:58 Calcium 11.1 mg/dL (8.4-10.2) H 03/15/19 04:38 Phosphorus 3.10 mg/dL (2.5-4.5) 03/15/19 04:38 Magnesium 2.30 mg/dL (1.7-2.3) 03/15/19 04:38 0.30 mg/dL (0.1-1.2) 03/15/19 04:38 AST 14 units/L (5-40) 03/15/19 04:38 ALT 9 units/L (7-56) 03/15/19 04:38 161 units/L (35-129) H 03/15/19 04:38 28.0 umol/L (25-60) 02/21/19 20:04 64 units/L (55-170) 02/22/19 03:42 CK-MB (CK-2) 3.7 ng/mL (0.0-4.0) 02/22/19 03:42 CK-MB (CK-2) Rel Index 5.7 (0-4) H 02/22/19 03:42 0.193 ng/mL (0.00-0.029) H* 02/22/19 03:42 7.4 g/dL (6.3-8.2) 03/15/19 04:38 2.3 g/dL (3.9-5) L 03/15/19 04:38 0.5 % 03/15/19 04:38 Triglycerides 51 mg/dL (2-149) 02/21/19 18:30 Cholesterol 82 mg/dL (50-199) 02/21/19 18:30 36 mg/dL (50-130) L 02/21/19 18:30 40 mg/dL (40-59) 02/21/19 18:30 2.05 % 02/21/19 18:30 TSH 2.760 mlU/mL (0.270-4.200) 02/21/19 20:04 PTH Intact 267.6 pg/mL (15-65) H 03/02/19 05:15 Salicylates < 0.3 mg/dL (2.8-20.0) L 02/21/19 20:04 Acetaminophen < 5.0 ug/mL (10.0-30.0) L 02/21/19 20:04 Hepatitis A IgM Ab Non-reactive (NonReactive) 02/23/19 11:20 Hep Bs Antigen Non-reactive (Negative) 02/23/19 11:20 Hep B Core IgM Ab Non-reactive (NonReactive) 02/23/19 11:20 Non-reactive (NonReactive) 02/23/19 11:20 Blood Type O POSITIVE 03/08/19 Unknown Antibody Screen Negative 03/08/19 Unknown Crossmatch See Detail 03/08/19 Unknown Active Medications - Current Medications Current Medications: Generic Name Dose Route Start Last Admin Trade Name Freq PRN Reason Stop Dose Admin Acetaminophen 650 mg 02/21/19 22:19 03/14/19 21:16 Tylenol PO 650 mg Q4H PRN Administration Pain MILD(1-3)/Fever >100.5/HILL Albuterol/Ipratropium 1 ampul 02/24/19 20:00 03/15/19 14:31 Duoneb *Not For Prn Use* IH 1 ampul TIDRT SANCHEZ Administration Lipase/Protease/Amylase 1 each 03/05/19 14:04 Pancrejewel Barrientos 10,500 Unit FEEDTUBE PRN PRN For Clogged Feeding Tube Dextrose 50 ml 02/21/19 22:22 03/03/19 17:37 D50w (25gm) Syringe IV 50 ml PRN PRN Administration Hypoglycemia Famotidine 20 mg 02/23/19 10:00 03/15/19 09:00 Pepcid PO 20 mg DAILY SANCHEZ Administration Heparin Sodium (Porcine) 5,000 unit 03/04/19 22:00 03/15/19 22:06 Heparin SUB-Q 5,000 unit Q12HR SANCHEZ Administration Hydrophilic Ointment 1 applic 02/21/19 18:24 03/05/19 08:16 Vaseline Lip Therapy TP 1 applic Q2HR PRN Administration Dry Lips Sodium Chloride 100 mls @ 999 mls/hr 02/26/19 09:00 Nacl 0.9% IV UMA PRN Hypotension Insulin Human Regular 0 units 02/26/19 12:00 03/15/19 19:41 Humulin R SUB-Q 1 units Q6HR SANCHEZ Administration Protocol Metoprolol Tartrate 2.5 mg 02/28/19 12:06 03/15/19 05:15 Lopressor IV 2.5 mg Q4HR PRN Administration Tachycardia Metoprolol Tartrate 25 mg 03/02/19 14:00 03/15/19 20:54 Lopressor PO 25 mg TID SANCHEZ Administration Multi-Ingred Cream/Lotion/Oil/Oint 1 applic 02/21/19 18:24 Artificial Tears Ophth Oint OU Q4HR PRN Dry Eye(s) Ondansetron HCl 4 mg 02/21/19 22:19 03/12/19 21:39 Zofran IV 4 mg Q8H PRN Administration Nausea And Vomiting Risperidone 1 mg 02/25/19 13:00 03/15/19 09:00 Risperdal PO 1 mg DAILY SANCHEZ Administration Scopolamine 1 each 03/13/19 04:00 03/13/19 05:00 Transderm-Scop TD 1 each Q3D SANCHEZ Administration Sertraline HCl 100 mg 02/25/19 13:00 03/15/19 09:01 Zoloft PO 100 mg DAILY SANCHEZ Administration Simple Syrup 15 ml 03/05/19 14:04 Simple Syrup FEEDTUBE PRN PRN Hypoglycemia Simple Syrup 30 ml 03/05/19 14:04 Simple Syrup FEEDTUBE PRN PRN Hypoglycemia Sodium Bicarbonate 325 mg 03/05/19 14:04 Sodium Bicarbonate FEEDTUBE PRN PRN For Clogged Feeding Tube Sodium Chloride 10 ml 02/22/19 10:00 03/15/19 22:06 Sodium Chloride Flush Syringe 10 Ml IV 10 ml BID SANCHEZ Administration Sodium Chloride 10 ml 02/21/19 22:19 02/24/19 22:00 Sodium Chloride Flush Syringe 10 Ml IV 10 ml PRN PRN Administration LINE FLUSH Tramadol HCl 50 mg 03/05/19 10:08 03/12/19 21:39 Ultram PO 50 mg Q6H PRN Administration Pain, Moderate (4-6) Nutrition/Malnutrition Assess - Dietary Evaluation Nutrition/Malnutrition Findings: Nutrition Notes Start: 02/22/19 12:51 Freq: Status: Active Protocol: Document 03/13/19 13:06 LM (Rec: 03/13/19 13:16 LM [id number]) Nutrition Notes Initial or Follow up Reassessment Current Diagnosis Diabetes,Hypertension Other Pertinent Diagnosis Sacral PU, ESRD on HD (T/Thurs /Sat), Schizophrenia,Blind in L eye,S/P trach Current Diet Vital AF 1.2 at 70 ml/hr Labs/Tests Na 136 K 5.1 BUN 48 Cr 2.7 BG 102 Pertinent Medications Humulin Height 5 ft 10 in Weight 88.7 kg [place] Body Weight (kg) 75.45 BMI 28.0 Subjective/Other Information Vital AF running at goal (70 ml/hr) and pt is tolerating TF . Percent of energy/protein needs met: 100%/100% Burn Absent Trauma Absent #2 Nutrition Diagnosis Increased nutrient needs ( specify in comment below) Diagnosis Progress(for reassessment Continues documentation) #1 Nutrition Diagnosis Inadequate oral intake Diagnosis Progress(for reassessment Continues documentation) Is patient on ventilator? Yes Is Patient Ambulatory and/or Out of Bed No REE-([facility]-confined to bed) 2023.976 Kcal/Kg value to use for calculation 18 Approximate Energy Requirements Using 1597 kcal/Kg Calculation Used for Recommendations Kcal/kg Additional Notes Protein Needs: 106-177g (1.2- 2g/kg) Fluid Needs: 1 ml/kcal Nutrition Intervention Nutrition Support: Vital 1.2 at 70 ml/hr Water flush of 100 mls q 4 hrs Kcal 2,016 Protein (gm) 126 Fluid (mL) 1,362 Add Supplement/Snack (indicate name/kcal Abhilash BID /protein ) Provides kCal: 190 Provides Protein (gm) 5 Goal #1 TF tolerance Goal #2 Continue to meet at least 80% of calorie and protein needs via TF Anticipated Discharge Needs: Unable to determine at this time Follow-Up By: 03/19/19 Additional Comments F/U for TF tolerance
[2019-03-16] MEDS: INSULIN REGULAR, HUMAN 100 UNITS/1 ML SUB-Q SCH ×4 (00:31→17:41)
[2019-03-16] MEDS: SCOPOLAMINE TRANSDERMAL PATCH 72 HR TD SCH (03:41)
[2019-03-16] MEDS: ACETAMINOPHEN 325 MG TAB PO PRN ×3 (03:42→21:22)
[2019-03-16] MEDS: METOPROLOL TARTRATE 25 MG TAB PO SCH ×3 (08:00→21:21)
[2019-03-16] MEDS: IPRATROPIUM/ALBUTEROL SULFATE 3 ML AMPUL.NEB IH SCH ×4 (08:01→20:39)
[2019-03-16] MEDS: risperiDONE 1 MG TAB PO SCH (10:00)
[2019-03-16] MEDS: HEPARIN 5,000 UNIT/1 ML VIAL SUB-Q SCH ×2 (10:00→21:22)
[2019-03-16] MEDS: FAMOTIDINE 20 MG TAB PO SCH (10:00)
[2019-03-16] MEDS: SERTRALINE 100 MG TAB PO SCH (10:00)
--- NOTE | 2019-03-16 10:02 | Progress Note ---
Assessment and Plan Assessment and plan: Patient is a 63-year-old -[place] man from [facility] with a plethora of co-morbidities including blindness, CVA, CHF, PPM/ICD, loop recorder since 2012 that is MRI compatible, IDDM type 2, sepsis left foot ulcer, afib, ESRD with complications on HD TTS, hypertension, AOCD and GERD who presented to the ED with hypotensive after intubation in the emergency room. diagnosed with fluid overload, pleural effusion. Patient has had recurrent admission in the hospital for similar reason and was recently discharged from the hospital following treatment of Severe Sepsis due to Necrotizing Unstagable sacral decubitus ulcer with ostemomylitis, has received multiple courses of broad spectrum abx. FEver fup blood and sputum cultures, monitor fever curve, ID consult Acute respiratory failure on mechanical ventilator >96 hrs - Currently on trach/peg placed on 03/03 off vent since 03/09, cont oxygen supplement, improving, on t piece acute on chronc systolic CHF/ Acute pulmonary edema, improved with UF Dilated CMP, EF 35-40% Continue diuresis Acute metabolic encephalopathy, resolved, has baseline Dementia ESRD on hemodialysis nephrology following Bilateral pleural effusions improved with HD Permanent atrial fibrillation and flutter and hypercoaguable state Not on anticoagulation because of anemia thrombocytopenia rate control meds optimizeds Diabetes mellitus type 2 SSI NSTEMI type 2 Cardiology following Schizophrenia Legally blind supportive care hypertension Monitor BP Hypokalemia replaced Pulmonary hypertension Dysphagia s/p PEG tube Sacral decub ulcer Wound Nurse consulted Severe malnutrition /hypoalbuminemia with FTT: 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, documentation spec following PEG placed on 01/02/19 decubitus ulcer s/ post colostomy Left 5th finger, stage 4 pressure ulcer Left heel, deep tissue injury Sacrum, stage 4 pressure ulcer POA Continue wound care History of sacral osteomyelitis and LE ulcers Completed Antibiotics Place on contact isolation for ESBL Klebsiella pneumonia on wound culture 01/02/19 Schizophrenia h/o Peripheral neuropathy: Continue gabapentin Pulm HTN Anemia of chronic disease sp 1 unit of prbc , stable RUL atelectasis, probably mucous plugging DVT prophylaxis Lovenox Full code status poor prognosis DIspo; unable to be placed in ltac, unable to find any NH to take patient. REcommend inpatient hospice, but family is not agreeable at this time. Plan another family meeting and ethic consult The high probability of a clinically significant, sudden or life threatening deterioration of the [pulmonary, neuro, renal] system(s) required my full and direct attention, intervention and personal management. The aggregate critical care time was [35] minutes. This time is in addition to time spent performing reported procedures but includes the following: [x] Data Review and interpretation [x] Patient assessment and monitoring of vital signs [] Documentation [x] Medication orders and management History Interval history: having fevers remains demented no vomiting, no agitation, no seizures Hospitalist Physical - Physical exam Narrative exam: Constitutional: no acute distress, opens eyes, says hello Eyes: non-icteric ENT: oropharynx moist Neck: supple Effort: normal Ascultation: Bilateral: other (coarse BS bilaterally) Percussion: Bilateral: not dull Cardiovascular: regular rate and rhythm (no mrg) Gastrointestinal: normoactive bowel sounds, soft, non-tender, non-distended, other (ostomy in place, brown stool) Extremities: no cyanosis, no edema, pink and warm Neurologic: other (mild weakness LUE, o/w nonfocal), demented Psychiatric: other (unable to assess) SKIN; Left 5th finger, stage 4 pressure ulcer,Left heel, deep tissue injury, Sacrum, stage 4 pressure ulcer POA - Constitutional Vitals: Temp Pulse Resp BP Pulse Ox 100.7 F H 110 H 26 H 131/68 96 03/16/19 04:00 03/16/19 08:01 03/16/19 08:01 03/16/19 07:00 03/16/19 08:01 General appearance: Present: no acute distress, well-nourished Results - Labs CBC & Chem 7: 03/15/19 04:38 03/15/19 04:38 Labs: Laboratory Last Values WBC 12.8 K/mm3 (4.5-11.0) H 03/15/19 04:38 RBC 3.11 M/mm3 (3.65-5.03) L 03/15/19 04:38 Hgb 8.1 gm/dl (11.8-15.2) L 03/15/19 04:38 Hct 26.5 % (35.5-45.6) L 03/15/19 04:38 MCV 85 fl (84-94) 03/15/19 04:38 MCH 26 pg (28-32) L 03/15/19 04:38 MCHC 31 % (32-34) L 03/15/19 04:38 RDW 19.7 % (13.2-15.2) H 03/15/19 04:38 Plt Count 322 K/mm3 (140-440) 03/15/19 04:38 Lymph % (Auto) 4.4 % (13.4-35.0) L 03/15/19 04:38 [place] % (Auto) 7.4 % (0.0-7.3) H 03/15/19 04:38 Eos % (Auto) 0.3 % (0.0-4.3) 03/15/19 04:38 Baso % (Auto) 0.6 % (0.0-1.8) 03/15/19 04:38 Lymph # 0.6 K/mm3 (1.2-5.4) L 03/15/19 04:38 [place] # 0.9 K/mm3 (0.0-0.8) H 03/15/19 04:38 Eos # 0.0 K/mm3 (0.0-0.4) 03/15/19 04:38 Baso # 0.1 K/mm3 (0.0-0.1) 03/15/19 04:38 Seg Neutrophils % 87.3 % (40.0-70.0) H 03/15/19 04:38 Seg Neutrophils # 11.2 K/mm3 (1.8-7.7) H 03/15/19 04:38 PT 16.3 Sec. (12.2-14.9) H 03/01/19 09:39 INR 1.35 (0.87-1.13) H 03/01/19 09:39 APTT 33.7 Sec. (24.2-36.6) 02/21/19 18:30 2987.82 ng/mlDDU (0-234) H 02/22/19 05:54 POC ABG pH 7.483 (7.35-7.45) H 02/27/19 04:35 ABG pH 7.435 pH Units (7.350-7.450) 03/09/19 13:53 POC ABG pCO2 37.5 (35-45) 02/27/19 04:35 ABG pCO2 46.5 mm Hg 03/09/19 13:53 POC ABG pO2 61 (80-105) L 02/27/19 04:35 ABG pO2 80.8 mm Hg (80.0-90.0) 03/09/19 13:53 POC ABG HCO3 28.1 (22-26 mml/L) 02/27/19 04:35 ABG HCO3 30.5 mmol/L (20.0-26.0) H 03/09/19 13:53 POC ABG Total CO2 29 (23-27mmol/L) 02/27/19 04:35 POC ABG O2 Sat 93 02/27/19 04:35 ABG O2 Saturation 96.5 % (95.0-99.0) 03/09/19 13:53 ABG O2 Content 10.8 (0.0-44) 03/09/19 13:53 POC ABG Base Excess 5 ((-2) - (+3)mmol/L) 02/27/19 04:35 ABG Base Excess 5.6 mmol/L (-2.0-3.0) H 03/09/19 13:53 ABG Hemoglobin 8.1 gm/dl (14.0-18.0) L 03/09/19 13:53 ABG Carboxyhemoglobin 2.4 % (0.0-5.0) 03/09/19 13:53 ABG Methemoglobin 0.4 % (0.0-1.5) 03/09/19 13:53 93.8 % (95.0-99.0) L 03/09/19 13:53 25 % 03/09/19 13:53 Sodium 135 mmol/L (137-145) L 03/15/19 04:38 Potassium 5.0 mmol/L (3.6-5.0) 03/15/19 04:38 Chloride 91.9 mmol/L (98-107) L 03/15/19 04:38 Carbon Dioxide 29 mmol/L (22-30) 03/15/19 04:38 19 mmol/L 03/15/19 04:38 BUN 54 mg/dL (9-20) H 03/15/19 04:38 2.8 mg/dL (0.8-1.5) H 03/15/19 04:38 Estimated GFR 28 ml/min 03/15/19 04:38 19 % 08/25/19 04:38 Glucose 128 mg/dL (75-100) H 03/15/19 04:38 POC Glucose 163 (70-105) H 03/16/19 05:40 Lactic Acid 1.00 mmol/L (0.7-2.0) 02/21/19 20:58 Calcium 11.1 mg/dL (8.4-10.2) H 03/15/19 04:38 Phosphorus 3.10 mg/dL (2.5-4.5) 03/15/19 04:38 Magnesium 2.30 mg/dL (1.7-2.3) 03/15/19 04:38 0.30 mg/dL (0.1-1.2) 03/15/19 04:38 AST 14 units/L (5-40) 03/15/19 04:38 ALT 9 units/L (7-56) 03/15/19 04:38 161 units/L (35-129) H 03/15/19 04:38 28.0 umol/L (25-60) 02/21/19 20:04 64 units/L (55-170) 02/22/19 03:42 CK-MB (CK-2) 3.7 ng/mL (0.0-4.0) 02/22/19 03:42 CK-MB (CK-2) Rel Index 5.7 (0-4) H 02/22/19 03:42 0.193 ng/mL (0.00-0.029) H* 02/22/19 03:42 7.4 g/dL (6.3-8.2) 03/15/19 04:38 2.3 g/dL (3.9-5) L 03/15/19 04:38 0.5 % 03/15/19 04:38 Triglycerides 51 mg/dL (2-149) 02/21/19 18:30 Cholesterol 82 mg/dL (50-199) 02/21/19 18:30 36 mg/dL (50-130) L 02/21/19 18:30 40 mg/dL (40-59) 02/21/19 18:30 2.05 % 02/21/19 18:30 TSH 2.760 mlU/mL (0.270-4.200) 02/21/19 20:04 PTH Intact 267.6 pg/mL (15-65) H 03/02/19 05:15 Salicylates < 0.3 mg/dL (2.8-20.0) L 02/21/19 20:04 Acetaminophen < 5.0 ug/mL (10.0-30.0) L 02/21/19 20:04 Hepatitis A IgM Ab Non-reactive (NonReactive) 02/23/19 11:20 Hep Bs Antigen Non-reactive (Negative) 02/23/19 11:20 Hep B Core IgM Ab Non-reactive (NonReactive) 02/23/19 11:20 Non-reactive (NonReactive) 02/23/19 11:20 Blood Type O POSITIVE 03/08/19 Unknown Antibody Screen Negative 03/08/19 Unknown Crossmatch See Detail 03/08/19 Unknown Active Medications - Current Medications Current Medications: Generic Name Dose Route Start Last Admin Trade Name Freq PRN Reason Stop Dose Admin Acetaminophen 650 mg 02/21/19 22:19 03/16/19 03:42 Tylenol PO 650 mg Q4H PRN Administration Pain MILD(1-3)/Fever >100.5/HILL Albuterol/Ipratropium 1 ampul 02/24/19 20:00 03/16/19 08:01 Duoneb *Not For Prn Use* IH 1 ampul TIDRT SANCHEZ Administration Lipase/Protease/Amylase 1 each 03/05/19 14:04 Pancrejewel Barrientos 10,500 Unit FEEDTUBE PRN PRN For Clogged Feeding Tube Dextrose 50 ml 02/21/19 22:22 03/03/19 17:37 D50w (25gm) Syringe IV 50 ml PRN PRN Administration Hypoglycemia Famotidine 20 mg 02/23/19 10:00 03/15/19 09:00 Pepcid PO 20 mg DAILY SANCHEZ Administration Heparin Sodium (Porcine) 5,000 unit 03/04/19 22:00 03/15/19 22:06 Heparin SUB-Q 5,000 unit Q12HR SANCHEZ Administration Hydrophilic Ointment 1 applic 02/21/19 18:24 03/05/19 08:16 Vaseline Lip Therapy TP 1 applic Q2HR PRN Administration Dry Lips Sodium Chloride 100 mls @ 999 mls/hr 02/26/19 09:00 Nacl 0.9% IV UMA PRN Hypotension Insulin Human Regular 0 units 02/26/19 12:00 03/16/19 06:21 Humulin R SUB-Q 1 units Q6HR SANCHEZ Administration Protocol Metoprolol Tartrate 2.5 mg 02/28/19 12:06 03/15/19 05:15 Lopressor IV 2.5 mg Q4HR PRN Administration Tachycardia Metoprolol Tartrate 25 mg 03/02/19 14:00 03/15/19 20:54 Lopressor PO 25 mg TID SANCHEZ Administration Multi-Ingred Cream/Lotion/Oil/Oint 1 applic 02/21/19 18:24 Artificial Tears Ophth Oint OU Q4HR PRN Dry Eye(s) Ondansetron HCl 4 mg 02/21/19 22:19 03/12/19 21:39 Zofran IV 4 mg Q8H PRN Administration Nausea And Vomiting Risperidone 1 mg 02/25/19 13:00 03/15/19 09:00 Risperdal PO 1 mg DAILY SANCHEZ Administration Scopolamine 1 each 03/13/19 04:00 03/16/19 03:41 Transderm-Scop TD 1 each Q3D SANCHEZ Administration Sertraline HCl 100 mg 02/25/19 13:00 03/15/19 09:01 Zoloft PO 100 mg DAILY SANCHEZ Administration Simple Syrup 15 ml 03/05/19 14:04 Simple Syrup FEEDTUBE PRN PRN Hypoglycemia Simple Syrup 30 ml 03/05/19 14:04 Simple Syrup FEEDTUBE PRN PRN Hypoglycemia Sodium Bicarbonate 325 mg 03/05/19 14:04 Sodium Bicarbonate FEEDTUBE PRN PRN For Clogged Feeding Tube Sodium Chloride 10 ml 02/22/19 10:00 03/15/19 22:06 Sodium Chloride Flush Syringe 10 Ml IV 10 ml BID SANCHEZ Administration Sodium Chloride 10 ml 02/21/19 22:19 02/24/19 22:00 Sodium Chloride Flush Syringe 10 Ml IV 10 ml PRN PRN Administration LINE FLUSH Tramadol HCl 50 mg 03/05/19 10:08 03/12/19 21:39 Ultram PO 50 mg Q6H PRN Administration Pain, Moderate (4-6) Nutrition/Malnutrition Assess - Dietary Evaluation Nutrition/Malnutrition Findings: Nutrition Notes Start: 02/22/19 12:51 Freq: Status: Active Protocol: Document 03/13/19 13:06 LM (Rec: 03/13/19 13:16 LM [id number]) Nutrition Notes Initial or Follow up Reassessment Current Diagnosis Diabetes,Hypertension Other Pertinent Diagnosis Sacral PU, ESRD on HD (T/Thurs /Sat), Schizophrenia,Blind in L eye,S/P trach Current Diet Vital AF 1.2 at 70 ml/hr Labs/Tests Na 136 K 5.1 BUN 48 Cr 2.7 BG 102 Pertinent Medications Humulin Height 5 ft 10 in Weight 88.7 kg [place] Body Weight (kg) 75.45 BMI 28.0 Subjective/Other Information Vital AF running at goal (70 ml/hr) and pt is tolerating TF . Percent of energy/protein needs met: 100%/100% Burn Absent Trauma Absent #2 Nutrition Diagnosis Increased nutrient needs ( specify in comment below) Diagnosis Progress(for reassessment Continues documentation) #1 Nutrition Diagnosis Inadequate oral intake Diagnosis Progress(for reassessment Continues documentation) Is patient on ventilator? Yes Is Patient Ambulatory and/or Out of Bed No REE-([facility]-confined to bed) 2023.976 Kcal/Kg value to use for calculation 18 Approximate Energy Requirements Using 1597 kcal/Kg Calculation Used for Recommendations Kcal/kg Additional Notes Protein Needs: 106-177g (1.2- 2g/kg) Fluid Needs: 1 ml/kcal Nutrition Intervention Nutrition Support: Vital 1.2 at 70 ml/hr Water flush of 100 mls q 4 hrs Kcal 2,016 Protein (gm) 126 Fluid (mL) 1,362 Add Supplement/Snack (indicate name/kcal Abhilash BID /protein ) Provides kCal: 190 Provides Protein (gm) 5 Goal #1 TF tolerance Goal #2 Continue to meet at least 80% of calorie and protein needs via TF Anticipated Discharge Needs: Unable to determine at this time Follow-Up By: 03/19/19 Additional Comments F/U for TF tolerance
--- NOTE | 2019-03-16 10:06 | Progress Note ---
Assessment and Plan - Patient Problems (1) ESRD (end stage renal disease) on dialysis Current Visit: Yes Status: Chronic Plan to address problem: End stage renal disease : - access: Left arm AVG Continue hemodialysis Saturday (2) Diabetes mellitus, insulin dependent (IDDM), uncontrolled Current Visit: No Status: Acute Plan to address problem: DM type II uncontrolled Monitor Fingersticks (3) Anemia in chronic kidney disease, on chronic dialysis Current Visit: Yes Status: Acute Plan to address problem: Anemia of chronic kidney disease hemoglobin 8.2 g. We'll give Epogen Monitor CBC (4) Hypertension Current Visit: Yes Status: Acute Plan to address problem: Hypertension controlled Ensure medications Monitor blood pressure Subjective Principal diagnosis: respiratory failure Interval history: 63-year-old gentleman with medical history significant for end-stage renal dise ase on hemodialysis via a left arm AV graft is currently in the [facility] for plan for dialysis today Patient is poorly responsive review of systems unobtainable no significant overnight events Objective - Vital Signs Vital signs: Vital Signs - 12hr 03/15/19 03/16/19 03/16/19 23:00 00:00 01:00 Temperature 99.6 F Pulse Rate 100 H 111 H 106 H Pulse Rate [ Anterior Bilateral Throughout] Pulse Rate [ 111 H From Monitor] Respiratory 31 H 26 H 22 Rate Respiratory Rate [Anterior Bilateral Throughout] Blood Pressure 124/67 126/68 136/71 O2 Sat by Pulse 93 92 89 Oximetry O2 Sat by Pulse Oximetry [ Assessment] 03/16/19 03/16/19 03/16/19 02:00 03:01 04:00 Temperature 100.7 F H Pulse Rate 112 H 113 H 113 H Pulse Rate [ Anterior Bilateral Throughout] Pulse Rate [ 113 H From Monitor] Respiratory 33 H 12 15 Rate Respiratory Rate [Anterior Bilateral Throughout] Blood Pressure 137/66 121/71 133/68 O2 Sat by Pulse 98 95 96 Oximetry O2 Sat by Pulse Oximetry [ Assessment] 03/16/19 03/16/19 03/16/19 05:00 06:00 07:00 Temperature Pulse Rate 119 H 121 H 110 H Pulse Rate [ Anterior Bilateral Throughout] Pulse Rate [ From Monitor] Respiratory 36 H 17 38 H Rate Respiratory Rate [Anterior Bilateral Throughout] Blood Pressure 124/62 132/69 131/68 O2 Sat by Pulse 88 95 95 Oximetry O2 Sat by Pulse Oximetry [ Assessment] 03/16/19 08:01 Temperature Pulse Rate Pulse Rate [ 110 H Anterior Bilateral Throughout] Pulse Rate [ From Monitor] Respiratory Rate Respiratory 26 H Rate [Anterior Bilateral Throughout] Blood Pressure O2 Sat by Pulse Oximetry O2 Sat by Pulse 96 Oximetry [ Assessment] - General Appearance General appearance: well-developed, well-nourished EENT: ATNC, PERRL Neck: no JVD Respiratory: Present: Clear to Ascultation Cardiology: regular, S1S2 Gastrointestinal: normal, normoactive bowel sounds Integumentary: no rash Neurologic: disoriented, CN 3-12 intact Musculoskeletal: deferred Psychiatric: depressed - Lab 03/15/19 04:38 03/15/19 04:38 Most recent lab results ABG pH 7.435 pH Units (7.350-7.450) 03/09/19 13:53 ABG pCO2 46.5 mm Hg 03/09/19 13:53 ABG pO2 80.8 mm Hg (80.0-90.0) 03/09/19 13:53 ABG HCO3 30.5 mmol/L (20.0-26.0) H 03/09/19 13:53 ABG O2 Saturation 96.5 % (95.0-99.0) 03/09/19 13:53 Calcium 11.1 mg/dL (8.4-10.2) H 03/15/19 04:38 Phosphorus 3.10 mg/dL (2.5-4.5) 03/15/19 04:38 Magnesium 2.30 mg/dL (1.7-2.3) 03/15/19 04:38 - Imaging Chest x-ray: image reviewed (I reviewed chest x-ray without overt edema) Medications & Allergies - Medications Allergies/Adverse Reactions: Allergies haloperidol [From Haldol] Adverse Reaction (Verified 03/13/18 12:10) Unknown haloperidol lactate [From Haldol] Adverse Reaction (Verified 03/13/18 12:10) Unknown Home Medications: Home Medications Medication Instructions Recorded Confirmed Last Taken Type risperiDONE [RisperDAL] 1 mg PO QAM 03/13/18 02/21/19 Unknown History Sertraline [Zoloft] 100 mg PO QDAY 08/26/18 02/21/19 Unknown History Polyethylene Glycol 3350 [Miralax 17 gm PO QDAY #30 packet 11/05/18 02/21/19 Unknown Rx 3350] Aspirin EC [Halfprin EC] 81 mg PO DAILY #30 11/19/18 02/21/19 Unknown Rx Docusate Sodium [Colace CAP] 100 mg PO BID #60 11/19/18 02/21/19 Unknown Rx Folic Acid [Folvite] 1 mg PO DAILY #30 tab 11/19/18 02/21/19 Unknown Rx Famotidine [Pepcid] 20 mg PO DAILY tablet 12/08/18 02/21/19 Unknown Rx Gabapentin [Neurontin] 100 mg PO QHS capsule 12/08/18 02/21/19 Unknown Rx Metoprolol [Lopressor TAB] 50 mg PO BID 30 Days tablet 12/08/18 02/21/19 Unknown Rx Sevelamer Carbonate [Renvela] 800 mg PO TIDWM tablet 12/08/18 02/21/19 Unknown Rx hydrALAZINE [Apresoline TAB] 100 mg PO Q8HR #120 tablet 12/08/18 02/21/19 Unknown Rx Acetaminophen [Acetaminophen TAB] 650 mg PO Q12H PRN 12/15/18 02/21/19 Unknown History Glucagon,Human Recombinant 1 mg IJ Q15MIN PRN 12/15/18 02/21/19 Unknown History [Glucagon Emergency Kit] Insulin Aspart [NovoLOG 100 See Protocol SQ QWEEK 12/15/18 02/21/19 Unknown History UNITS/ML VIAL] Active Medications: Generic Name Dose Route Start Last Admin Trade Name Freq PRN Reason Stop Dose Admin Acetaminophen 650 mg 02/21/19 22:19 03/16/19 03:42 Tylenol PO 650 mg Q4H PRN Administration Pain MILD(1-3)/Fever >100.5/HILL Albuterol/Ipratropium 1 ampul 02/24/19 20:00 03/16/19 08:01 Duoneb *Not For Prn Use* IH 1 ampul TIDRT SANCHEZ Administration Lipase/Protease/Amylase 1 each 03/05/19 14:04 Pancrejewel Barrientos 10,500 Unit FEEDTUBE PRN PRN For Clogged Feeding Tube Dextrose 50 ml 02/21/19 22:22 03/03/19 17:37 D50w (25gm) Syringe IV 50 ml PRN PRN Administration Hypoglycemia Famotidine 20 mg 02/23/19 10:00 03/15/19 09:00 Pepcid PO 20 mg DAILY SANCHEZ Administration Heparin Sodium (Porcine) 5,000 unit 03/04/19 22:00 03/15/19 22:06 Heparin SUB-Q 5,000 unit Q12HR SANCHEZ Administration Hydrophilic Ointment 1 applic 02/21/19 18:24 03/05/19 08:16 Vaseline Lip Therapy TP 1 applic Q2HR PRN Administration Dry Lips Sodium Chloride 100 mls @ 999 mls/hr 02/26/19 09:00 Nacl 0.9% IV UMA PRN Hypotension Insulin Human Regular 0 units 02/26/19 12:00 03/16/19 06:21 Humulin R SUB-Q 1 units Q6HR SANCHEZ Administration Protocol Metoprolol Tartrate 2.5 mg 02/28/19 12:06 03/15/19 05:15 Lopressor IV 2.5 mg Q4HR PRN Administration Tachycardia Metoprolol Tartrate 25 mg 03/02/19 14:00 03/15/19 20:54 Lopressor PO 25 mg TID SANCHEZ Administration Multi-Ingred Cream/Lotion/Oil/Oint 1 applic 02/21/19 18:24 Artificial Tears Ophth Oint OU Q4HR PRN Dry Eye(s) Ondansetron HCl 4 mg 02/21/19 22:19 03/12/19 21:39 Zofran IV 4 mg Q8H PRN Administration Nausea And Vomiting Risperidone 1 mg 02/25/19 13:00 03/15/19 09:00 Risperdal PO 1 mg DAILY SANCHEZ Administration Scopolamine 1 each 03/13/19 04:00 03/16/19 03:41 Transderm-Scop TD 1 each Q3D SANCHEZ Administration Sertraline HCl 100 mg 02/25/19 13:00 03/15/19 09:01 Zoloft PO 100 mg DAILY SANCHEZ Administration Simple Syrup 15 ml 03/05/19 14:04 Simple Syrup FEEDTUBE PRN PRN Hypoglycemia Simple Syrup 30 ml 03/05/19 14:04 Simple Syrup FEEDTUBE PRN PRN Hypoglycemia Sodium Bicarbonate 325 mg 03/05/19 14:04 Sodium Bicarbonate FEEDTUBE PRN PRN For Clogged Feeding Tube Sodium Chloride 10 ml 02/22/19 10:00 03/15/19 22:06 Sodium Chloride Flush Syringe 10 Ml IV 10 ml BID SANCHEZ Administration Sodium Chloride 10 ml 02/21/19 22:19 02/24/19 22:00 Sodium Chloride Flush Syringe 10 Ml IV 10 ml PRN PRN Administration LINE FLUSH Tramadol HCl 50 mg 03/05/19 10:08 03/12/19 21:39 Ultram PO 50 mg Q6H PRN Administration Pain, Moderate (4-6)
--- NOTE | 2019-03-16 11:30 | Progress Note ---
Assessment and Plan 63 y/o male with multiple medical issues admitted with altered mental status, acute respiratory failure requiring mechanical ventilation 1. Now on T-piece 2. Follow up with CM, still no placement options yet. 3. Hold off on Mucomyst 4. HD per renal. Last CXR shows improving pulmonary edema. Hopefully, renal can pull more. Subjective Date of service: 03/16/19 Principal diagnosis: respiratory failure Interval history: No acute events. Satting 100% on trach collar. Awaiting placement. Objective Vital Signs - 12hr 03/16/19 03/16/19 03/16/19 00:00 01:00 02:00 Temperature 99.6 F Pulse Rate 111 H 106 H 112 H Pulse Rate [ Anterior Bilateral Throughout] Pulse Rate [ 111 H From Monitor] Respiratory 26 H 22 33 H Rate Respiratory Rate [Anterior Bilateral Throughout] Blood Pressure 126/68 136/71 137/66 O2 Sat by Pulse 92 89 98 Oximetry O2 Sat by Pulse Oximetry [ Assessment] 03/16/19 03/16/19 03/16/19 03:01 04:00 05:00 Temperature 100.7 F H Pulse Rate 113 H 113 H 119 H Pulse Rate [ Anterior Bilateral Throughout] Pulse Rate [ 113 H From Monitor] Respiratory 12 15 36 H Rate Respiratory Rate [Anterior Bilateral Throughout] Blood Pressure 121/71 133/68 124/62 O2 Sat by Pulse 95 96 88 Oximetry O2 Sat by Pulse Oximetry [ Assessment] 03/16/19 03/16/19 03/16/19 06:00 07:00 08:00 Temperature Pulse Rate 121 H 110 H 114 H Pulse Rate [ Anterior Bilateral Throughout] Pulse Rate [ From Monitor] Respiratory 17 38 H Rate Respiratory Rate [Anterior Bilateral Throughout] Blood Pressure 132/69 131/68 116/59 O2 Sat by Pulse 95 95 Oximetry O2 Sat by Pulse Oximetry [ Assessment] 03/16/19 08:01 Temperature Pulse Rate Pulse Rate [ 110 H Anterior Bilateral Throughout] Pulse Rate [ From Monitor] Respiratory Rate Respiratory 26 H Rate [Anterior Bilateral Throughout] Blood Pressure O2 Sat by Pulse Oximetry O2 Sat by Pulse 96 Oximetry [ Assessment] Constitutional: no acute distress, alert Eyes: non-icteric ENT: oropharynx moist Neck: supple Effort: normal Ascultation: Bilateral: diminished breath sounds, other (coarse BS bilaterally) Percussion: Bilateral: not dull Cardiovascular: other (tachy, RR; no mrg) Gastrointestinal: normoactive bowel sounds, soft, non-tender, non-distended, other (ostomy in place, brown stool) Extremities: no cyanosis, no edema, pink and warm Neurologic: other (mild weakness LUE, o/w nonfocal) Psychiatric: other (unable to assess) CBC and BMP: 03/15/19 04:38 03/15/19 04:38 ABG, PT/INR, D-dimer: ABG POC ABG pH 7.483 (7.35-7.45) H 02/27/19 04:35 ABG pH 7.435 pH Units (7.350-7.450) 03/09/19 13:53 POC ABG pCO2 37.5 (35-45) 02/27/19 04:35 ABG pCO2 46.5 mm Hg 03/09/19 13:53 POC ABG pO2 61 (80-105) L 02/27/19 04:35 ABG pO2 80.8 mm Hg (80.0-90.0) 03/09/19 13:53 POC ABG HCO3 28.1 (22-26 mml/L) 02/27/19 04:35 POC ABG Total CO2 29 (23-27mmol/L) 02/27/19 04:35 POC ABG O2 Sat 93 02/27/19 04:35 ABG O2 Saturation 96.5 % (95.0-99.0) 03/09/19 13:53 PT/INR, D-dimer PT 16.3 Sec. (12.2-14.9) H 03/01/19 09:39 INR 1.35 (0.87-1.13) H 03/01/19 09:39 2987.82 ng/mlDDU (0-234) H 02/22/19 05:54 Abnormal lab findings: Abnormal Labs 02/21/19 02/21/19 02/21/19 18:30 18:30 18:30 WBC RBC 3.26 L Hgb 8.8 L Hct 29.0 L MCH 27 L MCHC 30 L RDW 19.1 H Lymph % (Auto) 6.1 L [place] % (Auto) Eos % (Auto) Lymph # 0.4 L [place] # Eos # Seg Neutrophils % 86.2 H Seg Neutrophils # PT INR D-Dimer POC ABG pH POC ABG pCO2 POC ABG pO2 ABG HCO3 ABG Base Excess ABG Hemoglobin Oxyhemoglobin Sodium 133 L Potassium 3.3 L Chloride 93.1 L Carbon Dioxide 33 H BUN Creatinine Glucose 161 H POC Glucose Calcium Phosphorus ALT Alkaline Phosphatase 136 H Total Creatine Kinase 37 L CK-MB (CK-2) Rel Index Troponin T 0.192 H* Albumin 2.4 L LDL Cholesterol Direct 36 L PTH Intact Salicylates Acetaminophen Crossmatch 02/21/19 02/21/19 02/21/19 18:42 20:04 20:04 WBC RBC Hgb Hct MCH MCHC RDW Lymph % (Auto) [place] % (Auto) Eos % (Auto) Lymph # [place] # Eos # Seg Neutrophils % Seg Neutrophils # PT INR D-Dimer POC ABG pH POC ABG pCO2 56.7 H POC ABG pO2 291 H ABG HCO3 ABG Base Excess ABG Hemoglobin Oxyhemoglobin Sodium Potassium Chloride Carbon Dioxide BUN Creatinine Glucose POC Glucose Calcium Phosphorus ALT Alkaline Phosphatase Total Creatine Kinase CK-MB (CK-2) Rel Index Troponin T Albumin LDL Cholesterol Direct PTH Intact Salicylates < 0.3 L Acetaminophen < 5.0 L Crossmatch 02/21/19 02/22/19 02/22/19 22:35 03:42 03:42 WBC RBC 3.20 L Hgb 8.8 L Hct 27.6 L MCH MCHC RDW 18.9 H Lymph % (Auto) 7.4 L [place] % (Auto) Eos % (Auto) Lymph # 0.7 L [place] # Eos # Seg Neutrophils % 84.7 H Seg Neutrophils # PT INR D-Dimer POC ABG pH POC ABG pCO2 POC ABG pO2 ABG HCO3 ABG Base Excess ABG Hemoglobin Oxyhemoglobin Sodium 134 L Potassium 2.6 L* D Chloride Carbon Dioxide BUN Creatinine Glucose POC Glucose Calcium Phosphorus ALT Alkaline Phosphatase Total Creatine Kinase CK-MB (CK-2) Rel Index 5.2 H Troponin T 0.202 H* Albumin LDL Cholesterol Direct PTH Intact Salicylates Acetaminophen Crossmatch 02/22/19 02/22/19 02/22/19 03:42 05:54 09:04 WBC RBC Hgb Hct MCH MCHC RDW Lymph % (Auto) [place] % (Auto) Eos % (Auto) Lymph # [place] # Eos # Seg Neutrophils % Seg Neutrophils # PT INR D-Dimer 2987.82 H POC ABG pH 7.451 H POC ABG pCO2 POC ABG pO2 ABG HCO3 ABG Base Excess ABG Hemoglobin Oxyhemoglobin Sodium Potassium Chloride Carbon Dioxide BUN Creatinine Glucose POC Glucose Calcium Phosphorus ALT Alkaline Phosphatase Total Creatine Kinase CK-MB (CK-2) Rel Index 5.7 H Troponin T 0.193 H* Albumin LDL Cholesterol Direct PTH Intact Salicylates Acetaminophen Crossmatch 02/22/19 02/22/19 02/23/19 10:36 23:56 00:52 WBC RBC Hgb Hct MCH MCHC RDW Lymph % (Auto) [place] % (Auto) Eos % (Auto) Lymph # [place] # Eos # Seg Neutrophils % Seg Neutrophils # PT INR D-Dimer POC ABG pH POC ABG pCO2 POC ABG pO2 ABG HCO3 ABG Base Excess ABG Hemoglobin Oxyhemoglobin Sodium Potassium 3.1 L Chloride Carbon Dioxide BUN Creatinine Glucose POC Glucose 58 L 111 H Calcium Phosphorus ALT Alkaline Phosphatase Total Creatine Kinase CK-MB (CK-2) Rel Index Troponin T Albumin LDL Cholesterol Direct PTH Intact Salicylates Acetaminophen Crossmatch 02/23/19 02/23/19 02/23/19 05:00 06:35 14:26 WBC RBC Hgb Hct MCH MCHC RDW Lymph % (Auto) [place] % (Auto) Eos % (Auto) Lymph # [place] # Eos # Seg Neutrophils % Seg Neutrophils # PT INR D-Dimer POC ABG pH POC ABG pCO2 POC ABG pO2 ABG HCO3 ABG Base Excess ABG Hemoglobin Oxyhemoglobin Sodium 135 L Potassium 3.1 L Chloride Carbon Dioxide BUN 21 H Creatinine 2.0 H Glucose 57 L POC Glucose 64 L 62 L Calcium Phosphorus ALT Alkaline Phosphatase Total Creatine Kinase CK-MB (CK-2) Rel Index Troponin T Albumin LDL Cholesterol Direct PTH Intact Salicylates Acetaminophen Crossmatch 02/24/19 02/24/19 02/24/19 02:11 04:12 04:55 WBC RBC 2.84 L Hgb 7.8 L Hct 24.5 L MCH MCHC RDW 19.5 H Lymph % (Auto) [place] % (Auto) Eos % (Auto) Lymph # [place] # Eos # Seg Neutrophils % Seg Neutrophils # PT INR D-Dimer POC ABG pH 7.511 H POC ABG pCO2 33.9 L POC ABG pO2 62 L ABG HCO3 ABG Base Excess ABG Hemoglobin Oxyhemoglobin Sodium Potassium Chloride Carbon Dioxide BUN Creatinine Glucose POC Glucose 69 L Calcium Phosphorus ALT Alkaline Phosphatase Total Creatine Kinase CK-MB (CK-2) Rel Index Troponin T Albumin LDL Cholesterol Direct PTH Intact Salicylates Acetaminophen Crossmatch 02/24/19 02/24/19 02/25/19 04:55 05:41 04:45 WBC RBC Hgb Hct MCH MCHC RDW Lymph % (Auto) [place] % (Auto) Eos % (Auto) Lymph # [place] # Eos # Seg Neutrophils % Seg Neutrophils # PT INR D-Dimer POC ABG pH 7.466 H POC ABG pCO2 POC ABG pO2 75 L ABG HCO3 ABG Base Excess ABG Hemoglobin Oxyhemoglobin Sodium Potassium Chloride Carbon Dioxide BUN Creatinine 1.8 H Glucose 73 L POC Glucose 127 H Calcium Phosphorus ALT Alkaline Phosphatase Total Creatine Kinase CK-MB (CK-2) Rel Index Troponin T Albumin LDL Cholesterol Direct PTH Intact Salicylates Acetaminophen Crossmatch 02/25/19 02/25/19 02/26/19 16:34 21:33 03:45 WBC RBC 2.96 L Hgb 8.0 L Hct 25.8 L MCH 27 L MCHC 31 L RDW 20.0 H Lymph % (Auto) [place] % (Auto) Eos % (Auto) Lymph # [place] # Eos # Seg Neutrophils % Seg Neutrophils # PT INR D-Dimer POC ABG pH POC ABG pCO2 POC ABG pO2 ABG HCO3 ABG Base Excess ABG Hemoglobin Oxyhemoglobin Sodium Potassium Chloride Carbon Dioxide BUN Creatinine Glucose POC Glucose 141 H 106 H Calcium Phosphorus ALT Alkaline Phosphatase Total Creatine Kinase CK-MB (CK-2) Rel Index Troponin T Albumin LDL Cholesterol Direct PTH Intact Salicylates Acetaminophen Crossmatch 02/26/19 02/26/19 02/26/19 03:45 04:13 07:53 WBC RBC Hgb Hct MCH MCHC RDW Lymph % (Auto) [place] % (Auto) Eos % (Auto) Lymph # [place] # Eos # Seg Neutrophils % Seg Neutrophils # PT INR D-Dimer POC ABG pH 7.470 H POC ABG pCO2 POC ABG pO2 ABG HCO3 ABG Base Excess ABG Hemoglobin Oxyhemoglobin Sodium Potassium Chloride Carbon Dioxide BUN Creatinine 1.8 H Glucose POC Glucose 110 H Calcium Phosphorus ALT Alkaline Phosphatase Total Creatine Kinase CK-MB (CK-2) Rel Index Troponin T Albumin LDL Cholesterol Direct PTH Intact Salicylates Acetaminophen Crossmatch 02/26/19 02/26/19 02/27/19 11:56 17:43 00:12 WBC RBC Hgb Hct MCH MCHC RDW Lymph % (Auto) [place] % (Auto) Eos % (Auto) Lymph # [place] # Eos # Seg Neutrophils % Seg Neutrophils # PT INR D-Dimer POC ABG pH POC ABG pCO2 POC ABG pO2 ABG HCO3 ABG Base Excess ABG Hemoglobin Oxyhemoglobin Sodium Potassium Chloride Carbon Dioxide BUN Creatinine Glucose POC Glucose 112 H 127 H 127 H Calcium Phosphorus ALT Alkaline Phosphatase Total Creatine Kinase CK-MB (CK-2) Rel Index Troponin T Albumin LDL Cholesterol Direct PTH Intact Salicylates Acetaminophen Crossmatch 02/27/19 02/27/19 02/27/19 04:35 13:15 18:02 WBC RBC Hgb Hct MCH MCHC RDW Lymph % (Auto) [place] % (Auto) Eos % (Auto) Lymph # [place] # Eos # Seg Neutrophils % Seg Neutrophils # PT INR D-Dimer POC ABG pH 7.483 H POC ABG pCO2 POC ABG pO2 61 L ABG HCO3 ABG Base Excess ABG Hemoglobin Oxyhemoglobin Sodium Potassium Chloride Carbon Dioxide BUN Creatinine Glucose POC Glucose 143 H 106 H Calcium Phosphorus ALT Alkaline Phosphatase Total Creatine Kinase CK-MB (CK-2) Rel Index Troponin T Albumin LDL Cholesterol Direct PTH Intact Salicylates Acetaminophen Crossmatch 02/28/19 02/28/19 02/28/19 05:50 11:59 17:52 WBC RBC Hgb Hct MCH MCHC RDW Lymph % (Auto) [place] % (Auto) Eos % (Auto) Lymph # [place] # Eos # Seg Neutrophils % Seg Neutrophils # PT INR D-Dimer POC ABG pH POC ABG pCO2 POC ABG pO2 ABG HCO3 ABG Base Excess ABG Hemoglobin Oxyhemoglobin Sodium Potassium Chloride Carbon Dioxide BUN Creatinine Glucose POC Glucose 134 H 128 H 142 H Calcium Phosphorus ALT Alkaline Phosphatase Total Creatine Kinase CK-MB (CK-2) Rel Index Troponin T Albumin LDL Cholesterol Direct PTH Intact Salicylates Acetaminophen Crossmatch 02/28/19 03/01/19 03/01/19 23:13 05:40 09:39 WBC RBC Hgb Hct MCH MCHC RDW Lymph % (Auto) [place] % (Auto) Eos % (Auto) Lymph # [place] # Eos # Seg Neutrophils % Seg Neutrophils # PT 16.3 H INR 1.35 H D-Dimer POC ABG pH POC ABG pCO2 POC ABG pO2 ABG HCO3 ABG Base Excess ABG Hemoglobin Oxyhemoglobin Sodium Potassium Chloride Carbon Dioxide BUN Creatinine Glucose POC Glucose 112 H 111 H Calcium Phosphorus ALT Alkaline Phosphatase Total Creatine Kinase CK-MB (CK-2) Rel Index Troponin T Albumin LDL Cholesterol Direct PTH Intact Salicylates Acetaminophen Crossmatch 03/01/19 03/01/19 03/01/19 11:56 13:54 17:59 WBC RBC Hgb Hct MCH MCHC RDW Lymph % (Auto) [place] % (Auto) Eos % (Auto) Lymph # [place] # Eos # Seg Neutrophils % Seg Neutrophils # PT INR D-Dimer POC ABG pH POC ABG pCO2 POC ABG pO2 ABG HCO3 ABG Base Excess ABG Hemoglobin Oxyhemoglobin Sodium Potassium Chloride Carbon Dioxide BUN 33 H Creatinine 2.8 H D Glucose 176 H POC Glucose 199 H 147 H Calcium Phosphorus ALT Alkaline Phosphatase Total Creatine Kinase CK-MB (CK-2) Rel Index Troponin T Albumin LDL Cholesterol Direct PTH Intact Salicylates Acetaminophen Crossmatch 03/02/19 03/02/19 03/02/19 05:15 05:15 05:15 WBC RBC 2.73 L Hgb 7.4 L Hct 23.0 L MCH 27 L MCHC RDW 19.9 H Lymph % (Auto) [place] % (Auto) 7.9 H Eos % (Auto) 7.6 H Lymph # 1.0 L [place] # Eos # 0.5 H Seg Neutrophils % Seg Neutrophils # PT INR D-Dimer POC ABG pH POC ABG pCO2 POC ABG pO2 ABG HCO3 ABG Base Excess ABG Hemoglobin Oxyhemoglobin Sodium Potassium Chloride Carbon Dioxide BUN 43 H Creatinine 3.2 H Glucose POC Glucose Calcium Phosphorus 2.30 L ALT Alkaline Phosphatase Total Creatine Kinase CK-MB (CK-2) Rel Index Troponin T Albumin LDL Cholesterol Direct PTH Intact 267.6 H Salicylates Acetaminophen Crossmatch 03/02/19 03/02/19 03/03/19 12:32 18:20 13:30 WBC RBC Hgb Hct MCH MCHC RDW Lymph % (Auto) [place] % (Auto) Eos % (Auto) Lymph # [place] # Eos # Seg Neutrophils % Seg Neutrophils # PT INR D-Dimer POC ABG pH POC ABG pCO2 POC ABG pO2 ABG HCO3 ABG Base Excess ABG Hemoglobin Oxyhemoglobin Sodium Potassium Chloride 97.3 L Carbon Dioxide BUN 26 H Creatinine 2.2 H Glucose 73 L POC Glucose 111 H 156 H Calcium Phosphorus ALT Alkaline Phosphatase Total Creatine Kinase CK-MB (CK-2) Rel Index Troponin T Albumin LDL Cholesterol Direct PTH Intact Salicylates Acetaminophen Crossmatch 03/04/19 03/04/19 03/04/19 00:02 05:37 05:40 WBC RBC 2.63 L Hgb 7.2 L Hct 22.2 L MCH MCHC RDW 20.2 H Lymph % (Auto) 10.5 L [place] % (Auto) Eos % (Auto) 4.6 H Lymph # 0.7 L [place] # Eos # Seg Neutrophils % 76.9 H Seg Neutrophils # PT INR D-Dimer POC ABG pH POC ABG pCO2 POC ABG pO2 ABG HCO3 ABG Base Excess ABG Hemoglobin Oxyhemoglobin Sodium Potassium Chloride Carbon Dioxide BUN Creatinine Glucose POC Glucose 136 H 123 H Calcium Phosphorus ALT Alkaline Phosphatase Total Creatine Kinase CK-MB (CK-2) Rel Index Troponin T Albumin LDL Cholesterol Direct PTH Intact Salicylates Acetaminophen Crossmatch 03/04/19 03/04/19 03/04/19 05:40 11:39 23:20 WBC RBC Hgb Hct MCH MCHC RDW Lymph % (Auto) [place] % (Auto) Eos % (Auto) Lymph # [place] # Eos # Seg Neutrophils % Seg Neutrophils # PT INR D-Dimer POC ABG pH POC ABG pCO2 POC ABG pO2 ABG HCO3 ABG Base Excess ABG Hemoglobin Oxyhemoglobin Sodium Potassium Chloride Carbon Dioxide BUN 34 H Creatinine 2.7 H Glucose 114 H POC Glucose 175 H 151 H Calcium Phosphorus ALT Alkaline Phosphatase Total Creatine Kinase CK-MB (CK-2) Rel Index Troponin T Albumin LDL Cholesterol Direct PTH Intact Salicylates Acetaminophen Crossmatch 03/05/19 03/05/19 03/05/19 05:37 12:08 17:11 WBC RBC Hgb Hct MCH MCHC RDW Lymph % (Auto) [place] % (Auto) Eos % (Auto) Lymph # [place] # Eos # Seg Neutrophils % Seg Neutrophils # PT INR D-Dimer POC ABG pH POC ABG pCO2 POC ABG pO2 ABG HCO3 ABG Base Excess ABG Hemoglobin Oxyhemoglobin Sodium Potassium Chloride Carbon Dioxide BUN Creatinine Glucose POC Glucose 134 H 135 H 135 H Calcium Phosphorus ALT Alkaline Phosphatase Total Creatine Kinase CK-MB (CK-2) Rel Index Troponin T Albumin LDL Cholesterol Direct PTH Intact Salicylates Acetaminophen Crossmatch 03/06/19 03/06/19 03/06/19 00:16 13:05 18:09 WBC RBC Hgb Hct MCH MCHC RDW Lymph % (Auto) [place] % (Auto) Eos % (Auto) Lymph # [place] # Eos # Seg Neutrophils % Seg Neutrophils # PT INR D-Dimer POC ABG pH POC ABG pCO2 POC ABG pO2 ABG HCO3 ABG Base Excess ABG Hemoglobin Oxyhemoglobin Sodium Potassium Chloride Carbon Dioxide BUN Creatinine Glucose POC Glucose 117 H 113 H 131 H Calcium Phosphorus ALT Alkaline Phosphatase Total Creatine Kinase CK-MB (CK-2) Rel Index Troponin T Albumin LDL Cholesterol Direct PTH Intact Salicylates Acetaminophen Crossmatch 03/07/19 03/08/19 03/08/19 05:25 05:33 16:00 WBC RBC 2.44 L Hgb 6.6 L Hct 20.8 L MCH 27 L MCHC RDW 19.2 H Lymph % (Auto) [place] % (Auto) Eos % (Auto) 8.6 H Lymph # 0.8 L [place] # Eos # 0.5 H Seg Neutrophils % 70.7 H Seg Neutrophils # PT INR D-Dimer POC ABG pH POC ABG pCO2 POC ABG pO2 ABG HCO3 ABG Base Excess ABG Hemoglobin Oxyhemoglobin Sodium Potassium Chloride Carbon Dioxide BUN Creatinine Glucose POC Glucose 106 H 108 H Calcium Phosphorus ALT Alkaline Phosphatase Total Creatine Kinase CK-MB (CK-2) Rel Index Troponin T Albumin LDL Cholesterol Direct PTH Intact Salicylates Acetaminophen Crossmatch 03/08/19 03/08/19 03/08/19 16:00 18:38 Unknown WBC RBC Hgb Hct MCH MCHC RDW Lymph % (Auto) [place] % (Auto) Eos % (Auto) Lymph # [place] # Eos # Seg Neutrophils % Seg Neutrophils # PT INR D-Dimer POC ABG pH POC ABG pCO2 POC ABG pO2 ABG HCO3 ABG Base Excess ABG Hemoglobin Oxyhemoglobin Sodium Potassium 5.4 H D Chloride Carbon Dioxide BUN 47 H Creatinine 2.6 H Glucose POC Glucose 123 H Calcium Phosphorus ALT < 5 L Alkaline Phosphatase Total Creatine Kinase CK-MB (CK-2) Rel Index Troponin T Albumin 2.2 L LDL Cholesterol Direct PTH Intact Salicylates Acetaminophen Crossmatch See Detail 03/09/19 03/09/19 03/09/19 10:48 12:28 13:53 WBC RBC 2.85 L Hgb 7.7 L Hct 24.2 L MCH 27 L MCHC RDW 18.7 H Lymph % (Auto) [place] % (Auto) Eos % (Auto) Lymph # [place] # Eos # Seg Neutrophils % Seg Neutrophils # PT INR D-Dimer POC ABG pH POC ABG pCO2 POC ABG pO2 ABG HCO3 30.5 H ABG Base Excess 5.6 H ABG Hemoglobin 8.1 L Oxyhemoglobin 93.8 L Sodium Potassium Chloride Carbon Dioxide BUN Creatinine Glucose POC Glucose 114 H Calcium Phosphorus ALT Alkaline Phosphatase Total Creatine Kinase CK-MB (CK-2) Rel Index Troponin T Albumin LDL Cholesterol Direct PTH Intact Salicylates Acetaminophen Crossmatch 03/09/19 03/09/19 03/10/19 17:58 23:53 12:01 WBC RBC Hgb Hct MCH MCHC RDW Lymph % (Auto) [place] % (Auto) Eos % (Auto) Lymph # [place] # Eos # Seg Neutrophils % Seg Neutrophils # PT INR D-Dimer POC ABG pH POC ABG pCO2 POC ABG pO2 ABG HCO3 ABG Base Excess ABG Hemoglobin Oxyhemoglobin Sodium Potassium Chloride Carbon Dioxide BUN Creatinine Glucose POC Glucose 108 H 128 H 144 H Calcium Phosphorus ALT Alkaline Phosphatase Total Creatine Kinase CK-MB (CK-2) Rel Index Troponin T Albumin LDL Cholesterol Direct PTH Intact Salicylates Acetaminophen Crossmatch 03/10/19 03/11/19 03/11/19 16:50 00:24 05:02 WBC RBC Hgb Hct MCH MCHC RDW Lymph % (Auto) [place] % (Auto) Eos % (Auto) Lymph # [place] # Eos # Seg Neutrophils % Seg Neutrophils # PT INR D-Dimer POC ABG pH POC ABG pCO2 POC ABG pO2 ABG HCO3 ABG Base Excess ABG Hemoglobin Oxyhemoglobin Sodium Potassium Chloride Carbon Dioxide BUN Creatinine Glucose POC Glucose 147 H 123 H 120 H Calcium Phosphorus ALT Alkaline Phosphatase Total Creatine Kinase CK-MB (CK-2) Rel Index Troponin T Albumin LDL Cholesterol Direct PTH Intact Salicylates Acetaminophen Crossmatch 03/11/19 03/11/19 03/11/19 11:56 12:20 18:37 WBC RBC Hgb Hct MCH MCHC RDW Lymph % (Auto) [place] % (Auto) Eos % (Auto) Lymph # [place] # Eos # Seg Neutrophils % Seg Neutrophils # PT INR D-Dimer POC ABG pH POC ABG pCO2 POC ABG pO2 ABG HCO3 ABG Base Excess ABG Hemoglobin Oxyhemoglobin Sodium Potassium 5.2 H Chloride Carbon Dioxide BUN Creatinine Glucose POC Glucose 123 H 125 H Calcium Phosphorus ALT Alkaline Phosphatase Total Creatine Kinase CK-MB (CK-2) Rel Index Troponin T Albumin LDL Cholesterol Direct PTH Intact Salicylates Acetaminophen Crossmatch 03/11/19 03/12/19 03/12/19 22:52 12:04 18:25 WBC RBC Hgb Hct MCH MCHC RDW Lymph % (Auto) [place] % (Auto) Eos % (Auto) Lymph # [place] # Eos # Seg Neutrophils % Seg Neutrophils # PT INR D-Dimer POC ABG pH POC ABG pCO2 POC ABG pO2 ABG HCO3 ABG Base Excess ABG Hemoglobin Oxyhemoglobin Sodium Potassium Chloride Carbon Dioxide BUN Creatinine Glucose POC Glucose 110 H 106 H 118 H Calcium Phosphorus ALT Alkaline Phosphatase Total Creatine Kinase CK-MB (CK-2) Rel Index Troponin T Albumin LDL Cholesterol Direct PTH Intact Salicylates Acetaminophen Crossmatch 03/12/19 03/13/19 03/13/19 23:36 04:38 04:38 WBC RBC 2.95 L Hgb 7.9 L Hct 24.9 L MCH 27 L MCHC RDW 19.9 H Lymph % (Auto) 11.1 L [place] % (Auto) 8.1 H Eos % (Auto) 4.4 H Lymph # 0.9 L [place] # Eos # Seg Neutrophils % 75.4 H Seg Neutrophils # PT INR D-Dimer POC ABG pH POC ABG pCO2 POC ABG pO2 ABG HCO3 ABG Base Excess ABG Hemoglobin Oxyhemoglobin Sodium 136 L Potassium 5.1 H Chloride 93.8 L Carbon Dioxide BUN 48 H Creatinine 2.7 H Glucose 102 H POC Glucose 115 H Calcium Phosphorus ALT < 5 L Alkaline Phosphatase 143 H Total Creatine Kinase CK-MB (CK-2) Rel Index Troponin T Albumin 2.5 L LDL Cholesterol Direct PTH Intact Salicylates Acetaminophen Crossmatch 03/13/19 03/13/19 03/13/19 05:33 13:37 18:03 WBC RBC Hgb Hct MCH MCHC RDW Lymph % (Auto) [place] % (Auto) Eos % (Auto) Lymph # [place] # Eos # Seg Neutrophils % Seg Neutrophils # PT INR D-Dimer POC ABG pH POC ABG pCO2 POC ABG pO2 ABG HCO3 ABG Base Excess ABG Hemoglobin Oxyhemoglobin Sodium Potassium Chloride Carbon Dioxide BUN Creatinine Glucose POC Glucose 140 H 150 H 158 H Calcium Phosphorus ALT Alkaline Phosphatase Total Creatine Kinase CK-MB (CK-2) Rel Index Troponin T Albumin LDL Cholesterol Direct PTH Intact Salicylates Acetaminophen Crossmatch 03/13/19 03/14/19 03/14/19 23:32 05:24 12:20 WBC RBC Hgb Hct MCH MCHC RDW Lymph % (Auto) [place] % (Auto) Eos % (Auto) Lymph # [place] # Eos # Seg Neutrophils % Seg Neutrophils # PT INR D-Dimer POC ABG pH POC ABG pCO2 POC ABG pO2 ABG HCO3 ABG Base Excess ABG Hemoglobin Oxyhemoglobin Sodium Potassium Chloride Carbon Dioxide BUN Creatinine Glucose POC Glucose 162 H 146 H 127 H Calcium Phosphorus ALT Alkaline Phosphatase Total Creatine Kinase CK-MB (CK-2) Rel Index Troponin T Albumin LDL Cholesterol Direct PTH Intact Salicylates Acetaminophen Crossmatch 03/14/19 03/14/19 03/15/19 18:05 23:57 04:38 WBC 12.8 H RBC 3.11 L Hgb 8.1 L Hct 26.5 L MCH 26 L MCHC 31 L RDW 19.7 H Lymph % (Auto) 4.4 L [place] % (Auto) 7.4 H Eos % (Auto) Lymph # 0.6 L [place] # 0.9 H Eos # Seg Neutrophils % 87.3 H Seg Neutrophils # 11.2 H PT INR D-Dimer POC ABG pH POC ABG pCO2 POC ABG pO2 ABG HCO3 ABG Base Excess ABG Hemoglobin Oxyhemoglobin Sodium Potassium Chloride Carbon Dioxide BUN Creatinine Glucose POC Glucose 142 H 155 H Calcium Phosphorus ALT Alkaline Phosphatase Total Creatine Kinase CK-MB (CK-2) Rel Index Troponin T Albumin LDL Cholesterol Direct PTH Intact Salicylates Acetaminophen Crossmatch 03/15/19 03/15/19 03/15/19 04:38 05:31 11:32 WBC RBC Hgb Hct MCH MCHC RDW Lymph % (Auto) [place] % (Auto) Eos % (Auto) Lymph # [place] # Eos # Seg Neutrophils % Seg Neutrophils # PT INR D-Dimer POC ABG pH POC ABG pCO2 POC ABG pO2 ABG HCO3 ABG Base Excess ABG Hemoglobin Oxyhemoglobin Sodium 135 L Potassium Chloride 91.9 L Carbon Dioxide BUN 54 H Creatinine 2.8 H Glucose 128 H POC Glucose 160 H 109 H Calcium 11.1 H Phosphorus ALT Alkaline Phosphatase 161 H Total Creatine Kinase CK-MB (CK-2) Rel Index Troponin T Albumin 2.3 L LDL Cholesterol Direct PTH Intact Salicylates Acetaminophen Crossmatch 03/15/19 03/15/19 03/16/19 18:15 23:41 05:40 WBC RBC Hgb Hct MCH MCHC RDW Lymph % (Auto) [place] % (Auto) Eos % (Auto) Lymph # [place] # Eos # Seg Neutrophils % Seg Neutrophils # PT INR D-Dimer POC ABG pH POC ABG pCO2 POC ABG pO2 ABG HCO3 ABG Base Excess ABG Hemoglobin Oxyhemoglobin Sodium Potassium Chloride Carbon Dioxide BUN Creatinine Glucose POC Glucose 151 H 110 H 163 H Calcium Phosphorus ALT Alkaline Phosphatase Total Creatine Kinase CK-MB (CK-2) Rel Index Troponin T Albumin LDL Cholesterol Direct PTH Intact Salicylates Acetaminophen Crossmatch
[2019-03-17] MEDS: INSULIN REGULAR, HUMAN 100 UNITS/1 ML SUB-Q SCH ×4 (00:36→17:06)
[2019-03-17] MEDS: METOPROLOL TARTRATE 5 MG/5 ML INJ IV PRN (05:30)
--- NOTE | 2019-03-17 08:16 | Progress Note ---
Assessment and Plan Assessment and plan: Patient is a 63-year-old -[place] man from [facility] with a plethora of co-morbidities including blindness, CVA, CHF, PPM/ICD, loop recorder since 2012 that is MRI compatible, IDDM type 2, sepsis left foot ulcer, afib, ESRD with complications on HD TTS, hypertension, AOCD and GERD who presented to the ED with hypotensive after intubation in the emergency room. diagnosed with fluid overload, pleural effusion. Patient has had recurrent admission in the hospital for similar reason and was recently discharged from the hospital following treatment of Severe Sepsis due to Necrotizing Unstagable sacral decubitus ulcer with ostemomylitis, has received multiple courses of broad spectrum abx. FEver fup blood and sputum cultures, monitor fever curve, ID consult Acute respiratory failure on mechanical ventilator >96 hrs - Currently on trach/peg placed on 03/03 off vent since 03/09, cont oxygen supplement, improving, on t piece acute on chronc systolic CHF/ Acute pulmonary edema, improved with UF Dilated CMP, EF 35-40% Continue diuresis Acute metabolic encephalopathy, resolved, has baseline Dementia ESRD on hemodialysis nephrology following Bilateral pleural effusions improved with HD Permanent atrial fibrillation and flutter and hypercoaguable state Not on anticoagulation because of anemia thrombocytopenia rate control meds optimizeds Diabetes mellitus type 2 SSI NSTEMI type 2 Cardiology following Schizophrenia Legally blind supportive care hypertension Monitor BP Hypokalemia replaced Pulmonary hypertension Dysphagia s/p PEG tube Sacral decub ulcer Wound Nurse consulted Severe malnutrition /hypoalbuminemia with FTT: 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, title attorney following PEG placed on 01/02/19 decubitus ulcer s/ post colostomy Left 5th finger, stage 4 pressure ulcer Left heel, deep tissue injury Sacrum, stage 4 pressure ulcer POA Continue wound care History of sacral osteomyelitis and LE ulcers Completed Antibiotics Place on contact isolation for ESBL Klebsiella pneumonia on wound culture 01/02/19 Schizophrenia h/o Peripheral neuropathy: Continue gabapentin Pulm HTN Anemia of chronic disease sp 1 unit of prbc , stable RUL atelectasis, probably mucous plugging DVT prophylaxis Lovenox Full code status poor prognosis DIspo; unable to be placed in ltac, unable to find any NH to take patient. REcommend inpatient hospice, but family is not agreeable at this time. Plan another family meeting and ethic consult The high probability of a clinically significant, sudden or life threatening deterioration of the [pulmonary, neuro, renal] system(s) required my full and direct attention, intervention and personal management. The aggregate critical care time was [35] minutes. This time is in addition to time spent performing reported procedures but includes the following: [x] Data Review and interpretation [x] Patient assessment and monitoring of vital signs [] Documentation [x] Medication orders and management History Interval history: Patient seen and examined medical records reviewed Hospitalist Physical - Constitutional Vitals: Temp Pulse Resp BP Pulse Ox 99.9 F H 110 H 17 103/52 100 03/17/19 08:00 03/17/19 08:00 03/17/19 08:00 03/17/19 08:00 03/17/19 08:00 General appearance: Present: no acute distress, well-nourished, other (tracheostomy) - EENT Eyes: Present: PERRL, EOM intact - Neck Neck: Present: supple, normal ROM - Respiratory Respiratory effort: normal Respiratory: bilateral: diminished, rhonchi, negative: rales, wheezing - Cardiovascular Rhythm: regular Heart Sounds: Present: S1 & S2 - Extremities Extremities: no ischemia Extremity abnormal: edema - Abdominal General gastrointestinal: soft, non-tender, non-distended, normal bowel sounds - Integumentary Integumentary: Present: clear, warm - Psychiatric Psychiatric: other (noncommunicative) - Neurologic Neurologic: other (noncommunicative) Results - Labs CBC & Chem 7: 03/15/19 04:38 03/15/19 04:38 Labs: Laboratory Last Values WBC 12.8 K/mm3 (4.5-11.0) H 03/15/19 04:38 RBC 3.11 M/mm3 (3.65-5.03) L 03/15/19 04:38 Hgb 8.1 gm/dl (11.8-15.2) L 03/15/19 04:38 Hct 26.5 % (35.5-45.6) L 03/15/19 04:38 MCV 85 fl (84-94) 03/15/19 04:38 MCH 26 pg (28-32) L 03/15/19 04:38 MCHC 31 % (32-34) L 03/15/19 04:38 RDW 19.7 % (13.2-15.2) H 03/15/19 04:38 Plt Count 322 K/mm3 (140-440) 03/15/19 04:38 Lymph % (Auto) 4.4 % (13.4-35.0) L 03/15/19 04:38 [place] % (Auto) 7.4 % (0.0-7.3) H 03/15/19 04:38 Eos % (Auto) 0.3 % (0.0-4.3) 03/15/19 04:38 Baso % (Auto) 0.6 % (0.0-1.8) 03/15/19 04:38 Lymph # 0.6 K/mm3 (1.2-5.4) L 03/15/19 04:38 [place] # 0.9 K/mm3 (0.0-0.8) H 03/15/19 04:38 Eos # 0.0 K/mm3 (0.0-0.4) 03/15/19 04:38 Baso # 0.1 K/mm3 (0.0-0.1) 03/15/19 04:38 Seg Neutrophils % 87.3 % (40.0-70.0) H 03/15/19 04:38 Seg Neutrophils # 11.2 K/mm3 (1.8-7.7) H 03/15/19 04:38 PT 16.3 Sec. (12.2-14.9) H 03/01/19 09:39 INR 1.35 (0.87-1.13) H 03/01/19 09:39 APTT 33.7 Sec. (24.2-36.6) 02/21/19 18:30 2987.82 ng/mlDDU (0-234) H 02/22/19 05:54 POC ABG pH 7.483 (7.35-7.45) H 02/27/19 04:35 ABG pH 7.435 pH Units (7.350-7.450) 03/09/19 13:53 POC ABG pCO2 37.5 (35-45) 02/27/19 04:35 ABG pCO2 46.5 mm Hg 03/09/19 13:53 POC ABG pO2 61 (80-105) L 02/27/19 04:35 ABG pO2 80.8 mm Hg (80.0-90.0) 03/09/19 13:53 POC ABG HCO3 28.1 (22-26 mml/L) 02/27/19 04:35 ABG HCO3 30.5 mmol/L (20.0-26.0) H 03/09/19 13:53 POC ABG Total CO2 29 (23-27mmol/L) 02/27/19 04:35 POC ABG O2 Sat 93 02/27/19 04:35 ABG O2 Saturation 96.5 % (95.0-99.0) 03/09/19 13:53 ABG O2 Content 10.8 (0.0-44) 03/09/19 13:53 POC ABG Base Excess 5 ((-2) - (+3)mmol/L) 02/27/19 04:35 ABG Base Excess 5.6 mmol/L (-2.0-3.0) H 03/09/19 13:53 ABG Hemoglobin 8.1 gm/dl (14.0-18.0) L 03/09/19 13:53 ABG Carboxyhemoglobin 2.4 % (0.0-5.0) 03/09/19 13:53 ABG Methemoglobin 0.4 % (0.0-1.5) 03/09/19 13:53 93.8 % (95.0-99.0) L 03/09/19 13:53 25 % 03/09/19 13:53 Sodium 135 mmol/L (137-145) L 03/15/19 04:38 Potassium 5.0 mmol/L (3.6-5.0) 03/15/19 04:38 Chloride 91.9 mmol/L (98-107) L 03/15/19 04:38 Carbon Dioxide 29 mmol/L (22-30) 03/15/19 04:38 19 mmol/L 03/15/19 04:38 BUN 54 mg/dL (9-20) H 03/15/19 04:38 2.8 mg/dL (0.8-1.5) H 03/15/19 04:38 Estimated GFR 28 ml/min 03/15/19 04:38 19 % 03/15/19 04:38 Glucose 128 mg/dL (75-100) H 03/15/19 04:38 POC Glucose 151 (70-105) H 03/17/19 05:53 Lactic Acid 1.00 mmol/L (0.7-2.0) 02/21/19 20:58 Calcium 11.1 mg/dL (8.4-10.2) H 03/15/19 04:38 Phosphorus 3.10 mg/dL (2.5-4.5) 03/15/19 04:38 Magnesium 2.30 mg/dL (1.7-2.3) 03/15/19 04:38 0.30 mg/dL (0.1-1.2) 03/15/19 04:38 AST 14 units/L (5-40) 03/15/19 04:38 ALT 9 units/L (7-56) 03/15/19 04:38 161 units/L (35-129) H 03/15/19 04:38 28.0 umol/L (25-60) 02/21/19 20:04 64 units/L (55-170) 02/22/19 03:42 CK-MB (CK-2) 3.7 ng/mL (0.0-4.0) 02/22/19 03:42 CK-MB (CK-2) Rel Index 5.7 (0-4) H 02/22/19 03:42 0.193 ng/mL (0.00-0.029) H* 02/22/19 03:42 7.4 g/dL (6.3-8.2) 03/15/19 04:38 2.3 g/dL (3.9-5) L 03/15/19 04:38 0.5 % 03/15/19 04:38 Triglycerides 51 mg/dL (2-149) 02/21/19 18:30 Cholesterol 82 mg/dL (50-199) 02/21/19 18:30 36 mg/dL (50-130) L 02/21/19 18:30 40 mg/dL (40-59) 02/21/19 18:30 2.05 % 02/21/19 18:30 TSH 2.760 mlU/mL (0.270-4.200) 02/21/19 20:04 PTH Intact 267.6 pg/mL (15-65) H 03/02/19 05:15 Salicylates < 0.3 mg/dL (2.8-20.0) L 02/21/19 20:04 Acetaminophen < 5.0 ug/mL (10.0-30.0) L 02/21/19 20:04 Hepatitis A IgM Ab Non-reactive (NonReactive) 02/23/19 11:20 Hep Bs Antigen Non-reactive (Negative) 02/23/19 11:20 Hep B Core IgM Ab Non-reactive (NonReactive) 02/23/19 11:20 Non-reactive (NonReactive) 02/23/19 11:20 Blood Type O POSITIVE 03/08/19 Unknown Antibody Screen Negative 03/08/19 Unknown Crossmatch See Detail 03/08/19 Unknown Active Medications - Current Medications Current Medications: Generic Name Dose Route Start Last Admin Trade Name Freq PRN Reason Stop Dose Admin Acetaminophen 650 mg 02/21/19 22:19 03/16/19 21:22 Tylenol PO 650 mg Q4H PRN Administration Pain MILD(1-3)/Fever >100.5/HILL Albuterol/Ipratropium 1 ampul 02/24/19 20:00 03/16/19 20:39 Duoneb *Not For Prn Use* IH 1 ampul TIDRT SANCHEZ Administration Lipase/Protease/Amylase 1 each 03/05/19 14:04 Pancreazkaren Barrientos 10,500 Unit FEEDTUBE PRN PRN For Clogged Feeding Tube Dextrose 50 ml 02/21/19 22:22 03/03/19 17:37 D50w (25gm) Syringe IV 50 ml PRN PRN Administration Hypoglycemia Famotidine 20 mg 02/23/19 10:00 03/16/19 10:00 Pepcid PO 20 mg DAILY SANCHEZ Administration Heparin Sodium (Porcine) 5,000 unit 03/04/19 22:00 03/16/19 21:22 Heparin SUB-Q 5,000 unit Q12HR SANCHEZ Administration Hydrophilic Ointment 1 applic 02/21/19 18:24 03/05/19 08:16 Vaseline Lip Therapy TP 1 applic Q2HR PRN Administration Dry Lips Sodium Chloride 100 mls @ 999 mls/hr 02/26/19 09:00 Nacl 0.9% IV UMA PRN Hypotension Insulin Human Regular 0 units 02/26/19 12:00 03/17/19 06:00 Humulin R SUB-Q 1 units Q6HR SANCHEZ Administration Protocol Metoprolol Tartrate 2.5 mg 02/28/19 12:06 03/15/19 05:15 Lopressor IV 2.5 mg Q4HR PRN Administration Tachycardia Metoprolol Tartrate 25 mg 03/02/19 14:00 03/16/19 21:21 Lopressor PO 25 mg TID SANCHEZ Administration Multi-Ingred Cream/Lotion/Oil/Oint 1 applic 02/21/19 18:24 Artificial Tears Ophth Oint OU Q4HR PRN Dry Eye(s) Ondansetron HCl 4 mg 02/21/19 22:19 03/12/19 21:39 Zofran IV 4 mg Q8H PRN Administration Nausea And Vomiting Risperidone 1 mg 02/25/19 13:00 03/16/19 10:00 Risperdal PO 1 mg DAILY SANCHEZ Administration Scopolamine 1 each 03/13/19 04:00 03/16/19 03:41 Transderm-Scop TD 1 each Q3D SANCHEZ Administration Sertraline HCl 100 mg 02/25/19 13:00 03/16/19 10:00 Zoloft PO 100 mg DAILY SANCHEZ Administration Simple Syrup 15 ml 03/05/19 14:04 Simple Syrup FEEDTUBE PRN PRN Hypoglycemia Simple Syrup 30 ml 03/05/19 14:04 Simple Syrup FEEDTUBE PRN PRN Hypoglycemia Sodium Bicarbonate 325 mg 03/05/19 14:04 Sodium Bicarbonate FEEDTUBE PRN PRN For Clogged Feeding Tube Sodium Chloride 10 ml 02/22/19 10:00 03/16/19 21:22 Sodium Chloride Flush Syringe 10 Ml IV 10 ml BID SANCHEZ Administration Sodium Chloride 10 ml 02/21/19 22:19 02/24/19 22:00 Sodium Chloride Flush Syringe 10 Ml IV 10 ml PRN PRN Administration LINE FLUSH Tramadol HCl 50 mg 03/05/19 10:08 03/12/19 21:39 Ultram PO 50 mg Q6H PRN Administration Pain, Moderate (4-6) Nutrition/Malnutrition Assess - Dietary Evaluation Nutrition/Malnutrition Findings: Nutrition Notes Start: 02/22/19 12:51 Freq: Status: Active Protocol: Document 03/13/19 13:06 LM (Rec: 03/13/19 13:16 LM [facility]-[id number]) Nutrition Notes Initial or Follow up Reassessment Current Diagnosis Diabetes,Hypertension Other Pertinent Diagnosis Sacral PU, ESRD on HD (T/Thurs /Sat), Schizophrenia,Blind in L eye,S/P trach Current Diet Vital AF 1.2 at 70 ml/hr Labs/Tests Na 136 K 5.1 BUN 48 Cr 2.7 BG 102 Pertinent Medications Humulin Height 5 ft 10 in Weight 88.7 kg [place] Body Weight (kg) 75.45 BMI 28.0 Subjective/Other Information Vital AF running at goal (70 ml/hr) and pt is tolerating TF . Percent of energy/protein needs met: 100%/100% Burn Absent Trauma Absent #2 Nutrition Diagnosis Increased nutrient needs ( specify in comment below) Diagnosis Progress(for reassessment Continues documentation) #1 Nutrition Diagnosis Inadequate oral intake Diagnosis Progress(for reassessment Continues documentation) Is patient on ventilator? Yes Is Patient Ambulatory and/or Out of Bed No REE-([facility]-confined to bed) 2023.976 Kcal/Kg value to use for calculation 18 Approximate Energy Requirements Using 1597 kcal/Kg Calculation Used for Recommendations Kcal/kg Additional Notes Protein Needs: 106-177g (1.2- 2g/kg) Fluid Needs: 1 ml/kcal Nutrition Intervention Nutrition Support: Vital 1.2 at 70 ml/hr Water flush of 100 mls q 4 hrs Kcal 2,016 Protein (gm) 126 Fluid (mL) 1,362 Add Supplement/Snack (indicate name/kcal Abhilash BID /protein ) Provides kCal: 190 Provides Protein (gm) 5 Goal #1 TF tolerance Goal #2 Continue to meet at least 80% of calorie and protein needs via TF Anticipated Discharge Needs: Unable to determine at this time Follow-Up By: 03/19/19 Additional Comments F/U for TF tolerance
[2019-03-17] MEDS: METOPROLOL TARTRATE 25 MG TAB PO SCH ×3 (08:28→21:59)
[2019-03-17] MEDS: ACETAMINOPHEN 325 MG TAB PO PRN (08:29)
[2019-03-17] MEDS: IPRATROPIUM/ALBUTEROL SULFATE 3 ML AMPUL.NEB IH SCH ×3 (08:33→21:30)
[2019-03-17] MEDS: risperiDONE 1 MG TAB PO SCH (09:15)
[2019-03-17] MEDS: HEPARIN 5,000 UNIT/1 ML VIAL SUB-Q SCH ×2 (09:15→21:57)
[2019-03-17] MEDS: FAMOTIDINE 20 MG TAB PO SCH (09:15)
[2019-03-17] MEDS: SERTRALINE 100 MG TAB PO SCH (09:15)
--- NOTE | 2019-03-17 09:58 | Progress Note ---
Assessment and Plan 63 y/o male with multiple medical issues admitted with altered mental status, acute respiratory failure requiring mechanical ventilation No new recs for today. Please see below 1. Now on T-piece, monitor FIO2 adjustments. Wean for sats >88% 2. Follow up with CM, still no placement options yet. 3. Hold off on Mucomyst 4. HD per renal. Last CXR shows improving pulmonary edema. Hopefully, renal can pull more. Subjective Date of service: 03/17/19 Principal diagnosis: respiratory failure Interval history: No acute events. Had HD yesterday. Remains on T-piece at 40%. Was on 35% 2 days ago. Objective Vital Signs - 12hr 03/16/19 03/16/19 03/16/19 22:00 22:15 23:00 Temperature Pulse Rate 109 H 97 H Pulse Rate [ Anterior Bilateral Throughout] Pulse Rate [ From Monitor] Respiratory 28 H 26 H Rate Respiratory Rate [Anterior Bilateral Throughout] Blood Pressure 118/58 118/55 O2 Sat by Pulse 97 99 100 Oximetry 03/16/19 03/16/19 03/17/19 23:40 23:53 00:00 Temperature 100.7 F H Pulse Rate 95 H 95 H Pulse Rate [ Anterior Bilateral Throughout] Pulse Rate [ 97 H From Monitor] Respiratory 21 22 Rate Respiratory Rate [Anterior Bilateral Throughout] Blood Pressure 108/58 109/56 O2 Sat by Pulse 100 97 Oximetry 03/17/19 03/17/19 03/17/19 01:00 02:00 02:58 Temperature 101.8 F H Pulse Rate 105 H 106 H Pulse Rate [ Anterior Bilateral Throughout] Pulse Rate [ From Monitor] Respiratory 33 H 30 H Rate Respiratory Rate [Anterior Bilateral Throughout] Blood Pressure 125/63 114/59 O2 Sat by Pulse 100 100 Oximetry 03/17/19 03/17/19 03/17/19 03:00 04:00 05:01 Temperature Pulse Rate 107 H 112 H 113 H Pulse Rate [ Anterior Bilateral Throughout] Pulse Rate [ 109 H From Monitor] Respiratory 33 H 24 22 Rate Respiratory Rate [Anterior Bilateral Throughout] Blood Pressure 122/56 118/55 120/68 O2 Sat by Pulse 100 99 97 Oximetry 03/17/19 03/17/19 03/17/19 06:00 07:00 08:00 Temperature 99.9 F H Pulse Rate 120 H 114 H 110 H Pulse Rate [ 118 H Anterior Bilateral Throughout] Pulse Rate [ 121 H From Monitor] Respiratory 32 H 33 H 17 Rate Respiratory 34 H Rate [Anterior Bilateral Throughout] Blood Pressure 108/52 114/54 103/52 O2 Sat by Pulse 98 100 100 Oximetry 03/17/19 03/17/19 03/17/19 08:28 08:39 09:00 Temperature Pulse Rate 120 H 102 H Pulse Rate [ Anterior Bilateral Throughout] Pulse Rate [ From Monitor] Respiratory 24 Rate Respiratory Rate [Anterior Bilateral Throughout] Blood Pressure 103/52 91/50 O2 Sat by Pulse 96 99 Oximetry Constitutional: no acute distress, alert Eyes: non-icteric ENT: oropharynx moist Neck: supple Effort: normal Ascultation: Bilateral: diminished breath sounds, other (coarse BS bilaterally) Percussion: Bilateral: not dull Cardiovascular: other (tachy, RR; no mrg) Gastrointestinal: normoactive bowel sounds, soft, non-tender, non-distended, other (ostomy in place, brown stool) Extremities: no cyanosis, no edema, pink and warm Neurologic: other (mild weakness LUE, o/w nonfocal) Psychiatric: other (unable to assess) CBC and BMP: 03/15/19 04:38 03/15/19 04:38 ABG, PT/INR, D-dimer: ABG POC ABG pH 7.483 (7.35-7.45) H 02/27/19 04:35 ABG pH 7.435 pH Units (7.350-7.450) 03/09/19 13:53 POC ABG pCO2 37.5 (35-45) 02/27/19 04:35 ABG pCO2 46.5 mm Hg 03/09/19 13:53 POC ABG pO2 61 (80-105) L 02/27/19 04:35 ABG pO2 80.8 mm Hg (80.0-90.0) 03/09/19 13:53 POC ABG HCO3 28.1 (22-26 mml/L) 02/27/19 04:35 POC ABG Total CO2 29 (23-27mmol/L) 02/27/19 04:35 POC ABG O2 Sat 93 02/27/19 04:35 ABG O2 Saturation 96.5 % (95.0-99.0) 03/09/19 13:53 PT/INR, D-dimer PT 16.3 Sec. (12.2-14.9) H 03/01/19 09:39 INR 1.35 (0.87-1.13) H 03/01/19 09:39 2987.82 ng/mlDDU (0-234) H 02/22/19 05:54 Abnormal lab findings: Abnormal Labs 02/21/19 02/21/19 02/21/19 18:30 18:30 18:30 WBC RBC 3.26 L Hgb 8.8 L Hct 29.0 L MCH 27 L MCHC 30 L RDW 19.1 H Lymph % (Auto) 6.1 L [place] % (Auto) Eos % (Auto) Lymph # 0.4 L [place] # Eos # Seg Neutrophils % 86.2 H Seg Neutrophils # PT INR D-Dimer POC ABG pH POC ABG pCO2 POC ABG pO2 ABG HCO3 ABG Base Excess ABG Hemoglobin Oxyhemoglobin Sodium 133 L Potassium 3.3 L Chloride 93.1 L Carbon Dioxide 33 H BUN Creatinine Glucose 161 H POC Glucose Calcium Phosphorus ALT Alkaline Phosphatase 136 H Total Creatine Kinase 37 L CK-MB (CK-2) Rel Index Troponin T 0.192 H* Albumin 2.4 L LDL Cholesterol Direct 36 L PTH Intact Salicylates Acetaminophen Crossmatch 02/21/19 02/21/19 02/21/19 18:42 20:04 20:04 WBC RBC Hgb Hct MCH MCHC RDW Lymph % (Auto) [place] % (Auto) Eos % (Auto) Lymph # [place] # Eos # Seg Neutrophils % Seg Neutrophils # PT INR D-Dimer POC ABG pH POC ABG pCO2 56.7 H POC ABG pO2 291 H ABG HCO3 ABG Base Excess ABG Hemoglobin Oxyhemoglobin Sodium Potassium Chloride Carbon Dioxide BUN Creatinine Glucose POC Glucose Calcium Phosphorus ALT Alkaline Phosphatase Total Creatine Kinase CK-MB (CK-2) Rel Index Troponin T Albumin LDL Cholesterol Direct PTH Intact Salicylates < 0.3 L Acetaminophen < 5.0 L Crossmatch 02/21/19 02/22/19 02/22/19 22:35 03:42 03:42 WBC RBC 3.20 L Hgb 8.8 L Hct 27.6 L MCH MCHC RDW 18.9 H Lymph % (Auto) 7.4 L [place] % (Auto) Eos % (Auto) Lymph # 0.7 L [place] # Eos # Seg Neutrophils % 84.7 H Seg Neutrophils # PT INR D-Dimer POC ABG pH POC ABG pCO2 POC ABG pO2 ABG HCO3 ABG Base Excess ABG Hemoglobin Oxyhemoglobin Sodium 134 L Potassium 2.6 L* D Chloride Carbon Dioxide BUN Creatinine Glucose POC Glucose Calcium Phosphorus ALT Alkaline Phosphatase Total Creatine Kinase CK-MB (CK-2) Rel Index 5.2 H Troponin T 0.202 H* Albumin LDL Cholesterol Direct PTH Intact Salicylates Acetaminophen Crossmatch 02/22/19 02/22/19 02/22/19 03:42 05:54 09:04 WBC RBC Hgb Hct MCH MCHC RDW Lymph % (Auto) [place] % (Auto) Eos % (Auto) Lymph # [place] # Eos # Seg Neutrophils % Seg Neutrophils # PT INR D-Dimer 2987.82 H POC ABG pH 7.451 H POC ABG pCO2 POC ABG pO2 ABG HCO3 ABG Base Excess ABG Hemoglobin Oxyhemoglobin Sodium Potassium Chloride Carbon Dioxide BUN Creatinine Glucose POC Glucose Calcium Phosphorus ALT Alkaline Phosphatase Total Creatine Kinase CK-MB (CK-2) Rel Index 5.7 H Troponin T 0.193 H* Albumin LDL Cholesterol Direct PTH Intact Salicylates Acetaminophen Crossmatch 02/22/19 02/22/19 02/23/19 10:36 23:56 00:52 WBC RBC Hgb Hct MCH MCHC RDW Lymph % (Auto) [place] % (Auto) Eos % (Auto) Lymph # [place] # Eos # Seg Neutrophils % Seg Neutrophils # PT INR D-Dimer POC ABG pH POC ABG pCO2 POC ABG pO2 ABG HCO3 ABG Base Excess ABG Hemoglobin Oxyhemoglobin Sodium Potassium 3.1 L Chloride Carbon Dioxide BUN Creatinine Glucose POC Glucose 58 L 111 H Calcium Phosphorus ALT Alkaline Phosphatase Total Creatine Kinase CK-MB (CK-2) Rel Index Troponin T Albumin LDL Cholesterol Direct PTH Intact Salicylates Acetaminophen Crossmatch 02/23/19 02/23/19 02/23/19 05:00 06:35 14:26 WBC RBC Hgb Hct MCH MCHC RDW Lymph % (Auto) [place] % (Auto) Eos % (Auto) Lymph # [place] # Eos # Seg Neutrophils % Seg Neutrophils # PT INR D-Dimer POC ABG pH POC ABG pCO2 POC ABG pO2 ABG HCO3 ABG Base Excess ABG Hemoglobin Oxyhemoglobin Sodium 135 L Potassium 3.1 L Chloride Carbon Dioxide BUN 21 H Creatinine 2.0 H Glucose 57 L POC Glucose 64 L 62 L Calcium Phosphorus ALT Alkaline Phosphatase Total Creatine Kinase CK-MB (CK-2) Rel Index Troponin T Albumin LDL Cholesterol Direct PTH Intact Salicylates Acetaminophen Crossmatch 02/24/19 02/24/19 02/24/19 02:11 04:12 04:55 WBC RBC 2.84 L Hgb 7.8 L Hct 24.5 L MCH MCHC RDW 19.5 H Lymph % (Auto) [place] % (Auto) Eos % (Auto) Lymph # [place] # Eos # Seg Neutrophils % Seg Neutrophils # PT INR D-Dimer POC ABG pH 7.511 H POC ABG pCO2 33.9 L POC ABG pO2 62 L ABG HCO3 ABG Base Excess ABG Hemoglobin Oxyhemoglobin Sodium Potassium Chloride Carbon Dioxide BUN Creatinine Glucose POC Glucose 69 L Calcium Phosphorus ALT Alkaline Phosphatase Total Creatine Kinase CK-MB (CK-2) Rel Index Troponin T Albumin LDL Cholesterol Direct PTH Intact Salicylates Acetaminophen Crossmatch 02/24/19 02/24/19 02/25/19 04:55 05:41 04:45 WBC RBC Hgb Hct MCH MCHC RDW Lymph % (Auto) [place] % (Auto) Eos % (Auto) Lymph # [place] # Eos # Seg Neutrophils % Seg Neutrophils # PT INR D-Dimer POC ABG pH 7.466 H POC ABG pCO2 POC ABG pO2 75 L ABG HCO3 ABG Base Excess ABG Hemoglobin Oxyhemoglobin Sodium Potassium Chloride Carbon Dioxide BUN Creatinine 1.8 H Glucose 73 L POC Glucose 127 H Calcium Phosphorus ALT Alkaline Phosphatase Total Creatine Kinase CK-MB (CK-2) Rel Index Troponin T Albumin LDL Cholesterol Direct PTH Intact Salicylates Acetaminophen Crossmatch 02/25/19 02/25/19 02/26/19 16:34 21:33 03:45 WBC RBC 2.96 L Hgb 8.0 L Hct 25.8 L MCH 27 L MCHC 31 L RDW 20.0 H Lymph % (Auto) [place] % (Auto) Eos % (Auto) Lymph # [place] # Eos # Seg Neutrophils % Seg Neutrophils # PT INR D-Dimer POC ABG pH POC ABG pCO2 POC ABG pO2 ABG HCO3 ABG Base Excess ABG Hemoglobin Oxyhemoglobin Sodium Potassium Chloride Carbon Dioxide BUN Creatinine Glucose POC Glucose 141 H 106 H Calcium Phosphorus ALT Alkaline Phosphatase Total Creatine Kinase CK-MB (CK-2) Rel Index Troponin T Albumin LDL Cholesterol Direct PTH Intact Salicylates Acetaminophen Crossmatch 02/26/19 02/26/19 02/26/19 03:45 04:13 07:53 WBC RBC Hgb Hct MCH MCHC RDW Lymph % (Auto) [place] % (Auto) Eos % (Auto) Lymph # [place] # Eos # Seg Neutrophils % Seg Neutrophils # PT INR D-Dimer POC ABG pH 7.470 H POC ABG pCO2 POC ABG pO2 ABG HCO3 ABG Base Excess ABG Hemoglobin Oxyhemoglobin Sodium Potassium Chloride Carbon Dioxide BUN Creatinine 1.8 H Glucose POC Glucose 110 H Calcium Phosphorus ALT Alkaline Phosphatase Total Creatine Kinase CK-MB (CK-2) Rel Index Troponin T Albumin LDL Cholesterol Direct PTH Intact Salicylates Acetaminophen Crossmatch 02/26/19 02/26/19 02/27/19 11:56 17:43 00:12 WBC RBC Hgb Hct MCH MCHC RDW Lymph % (Auto) [place] % (Auto) Eos % (Auto) Lymph # [place] # Eos # Seg Neutrophils % Seg Neutrophils # PT INR D-Dimer POC ABG pH POC ABG pCO2 POC ABG pO2 ABG HCO3 ABG Base Excess ABG Hemoglobin Oxyhemoglobin Sodium Potassium Chloride Carbon Dioxide BUN Creatinine Glucose POC Glucose 112 H 127 H 127 H Calcium Phosphorus ALT Alkaline Phosphatase Total Creatine Kinase CK-MB (CK-2) Rel Index Troponin T Albumin LDL Cholesterol Direct PTH Intact Salicylates Acetaminophen Crossmatch 02/27/19 02/27/19 02/27/19 04:35 13:15 18:02 WBC RBC Hgb Hct MCH MCHC RDW Lymph % (Auto) [place] % (Auto) Eos % (Auto) Lymph # [place] # Eos # Seg Neutrophils % Seg Neutrophils # PT INR D-Dimer POC ABG pH 7.483 H POC ABG pCO2 POC ABG pO2 61 L ABG HCO3 ABG Base Excess ABG Hemoglobin Oxyhemoglobin Sodium Potassium Chloride Carbon Dioxide BUN Creatinine Glucose POC Glucose 143 H 106 H Calcium Phosphorus ALT Alkaline Phosphatase Total Creatine Kinase CK-MB (CK-2) Rel Index Troponin T Albumin LDL Cholesterol Direct PTH Intact Salicylates Acetaminophen Crossmatch 02/28/19 02/28/19 02/28/19 05:50 11:59 17:52 WBC RBC Hgb Hct MCH MCHC RDW Lymph % (Auto) [place] % (Auto) Eos % (Auto) Lymph # [place] # Eos # Seg Neutrophils % Seg Neutrophils # PT INR D-Dimer POC ABG pH POC ABG pCO2 POC ABG pO2 ABG HCO3 ABG Base Excess ABG Hemoglobin Oxyhemoglobin Sodium Potassium Chloride Carbon Dioxide BUN Creatinine Glucose POC Glucose 134 H 128 H 142 H Calcium Phosphorus ALT Alkaline Phosphatase Total Creatine Kinase CK-MB (CK-2) Rel Index Troponin T Albumin LDL Cholesterol Direct PTH Intact Salicylates Acetaminophen Crossmatch 02/28/19 03/01/19 03/01/19 23:13 05:40 09:39 WBC RBC Hgb Hct MCH MCHC RDW Lymph % (Auto) [place] % (Auto) Eos % (Auto) Lymph # [place] # Eos # Seg Neutrophils % Seg Neutrophils # PT 16.3 H INR 1.35 H D-Dimer POC ABG pH POC ABG pCO2 POC ABG pO2 ABG HCO3 ABG Base Excess ABG Hemoglobin Oxyhemoglobin Sodium Potassium Chloride Carbon Dioxide BUN Creatinine Glucose POC Glucose 112 H 111 H Calcium Phosphorus ALT Alkaline Phosphatase Total Creatine Kinase CK-MB (CK-2) Rel Index Troponin T Albumin LDL Cholesterol Direct PTH Intact Salicylates Acetaminophen Crossmatch 03/01/19 03/01/19 03/01/19 11:56 13:54 17:59 WBC RBC Hgb Hct MCH MCHC RDW Lymph % (Auto) [place] % (Auto) Eos % (Auto) Lymph # [place] # Eos # Seg Neutrophils % Seg Neutrophils # PT INR D-Dimer POC ABG pH POC ABG pCO2 POC ABG pO2 ABG HCO3 ABG Base Excess ABG Hemoglobin Oxyhemoglobin Sodium Potassium Chloride Carbon Dioxide BUN 33 H Creatinine 2.8 H D Glucose 176 H POC Glucose 199 H 147 H Calcium Phosphorus ALT Alkaline Phosphatase Total Creatine Kinase CK-MB (CK-2) Rel Index Troponin T Albumin LDL Cholesterol Direct PTH Intact Salicylates Acetaminophen Crossmatch 03/02/19 03/02/19 03/02/19 05:15 05:15 05:15 WBC RBC 2.73 L Hgb 7.4 L Hct 23.0 L MCH 27 L MCHC RDW 19.9 H Lymph % (Auto) [place] % (Auto) 7.9 H Eos % (Auto) 7.6 H Lymph # 1.0 L [place] # Eos # 0.5 H Seg Neutrophils % Seg Neutrophils # PT INR D-Dimer POC ABG pH POC ABG pCO2 POC ABG pO2 ABG HCO3 ABG Base Excess ABG Hemoglobin Oxyhemoglobin Sodium Potassium Chloride Carbon Dioxide BUN 43 H Creatinine 3.2 H Glucose POC Glucose Calcium Phosphorus 2.30 L ALT Alkaline Phosphatase Total Creatine Kinase CK-MB (CK-2) Rel Index Troponin T Albumin LDL Cholesterol Direct PTH Intact 267.6 H Salicylates Acetaminophen Crossmatch 03/02/19 03/02/19 03/03/19 12:32 18:20 13:30 WBC RBC Hgb Hct MCH MCHC RDW Lymph % (Auto) [place] % (Auto) Eos % (Auto) Lymph # [place] # Eos # Seg Neutrophils % Seg Neutrophils # PT INR D-Dimer POC ABG pH POC ABG pCO2 POC ABG pO2 ABG HCO3 ABG Base Excess ABG Hemoglobin Oxyhemoglobin Sodium Potassium Chloride 97.3 L Carbon Dioxide BUN 26 H Creatinine 2.2 H Glucose 73 L POC Glucose 111 H 156 H Calcium Phosphorus ALT Alkaline Phosphatase Total Creatine Kinase CK-MB (CK-2) Rel Index Troponin T Albumin LDL Cholesterol Direct PTH Intact Salicylates Acetaminophen Crossmatch 03/04/19 03/04/19 03/04/19 00:02 05:37 05:40 WBC RBC 2.63 L Hgb 7.2 L Hct 22.2 L MCH MCHC RDW 20.2 H Lymph % (Auto) 10.5 L [place] % (Auto) Eos % (Auto) 4.6 H Lymph # 0.7 L [place] # Eos # Seg Neutrophils % 76.9 H Seg Neutrophils # PT INR D-Dimer POC ABG pH POC ABG pCO2 POC ABG pO2 ABG HCO3 ABG Base Excess ABG Hemoglobin Oxyhemoglobin Sodium Potassium Chloride Carbon Dioxide BUN Creatinine Glucose POC Glucose 136 H 123 H Calcium Phosphorus ALT Alkaline Phosphatase Total Creatine Kinase CK-MB (CK-2) Rel Index Troponin T Albumin LDL Cholesterol Direct PTH Intact Salicylates Acetaminophen Crossmatch 03/04/19 03/04/19 03/04/19 05:40 11:39 23:20 WBC RBC Hgb Hct MCH MCHC RDW Lymph % (Auto) [place] % (Auto) Eos % (Auto) Lymph # [place] # Eos # Seg Neutrophils % Seg Neutrophils # PT INR D-Dimer POC ABG pH POC ABG pCO2 POC ABG pO2 ABG HCO3 ABG Base Excess ABG Hemoglobin Oxyhemoglobin Sodium Potassium Chloride Carbon Dioxide BUN 34 H Creatinine 2.7 H Glucose 114 H POC Glucose 175 H 151 H Calcium Phosphorus ALT Alkaline Phosphatase Total Creatine Kinase CK-MB (CK-2) Rel Index Troponin T Albumin LDL Cholesterol Direct PTH Intact Salicylates Acetaminophen Crossmatch 03/05/19 03/05/19 03/05/19 05:37 12:08 17:11 WBC RBC Hgb Hct MCH MCHC RDW Lymph % (Auto) [place] % (Auto) Eos % (Auto) Lymph # [place] # Eos # Seg Neutrophils % Seg Neutrophils # PT INR D-Dimer POC ABG pH POC ABG pCO2 POC ABG pO2 ABG HCO3 ABG Base Excess ABG Hemoglobin Oxyhemoglobin Sodium Potassium Chloride Carbon Dioxide BUN Creatinine Glucose POC Glucose 134 H 135 H 135 H Calcium Phosphorus ALT Alkaline Phosphatase Total Creatine Kinase CK-MB (CK-2) Rel Index Troponin T Albumin LDL Cholesterol Direct PTH Intact Salicylates Acetaminophen Crossmatch 03/06/19 03/06/19 03/06/19 00:16 13:05 18:09 WBC RBC Hgb Hct MCH MCHC RDW Lymph % (Auto) [place] % (Auto) Eos % (Auto) Lymph # [place] # Eos # Seg Neutrophils % Seg Neutrophils # PT INR D-Dimer POC ABG pH POC ABG pCO2 POC ABG pO2 ABG HCO3 ABG Base Excess ABG Hemoglobin Oxyhemoglobin Sodium Potassium Chloride Carbon Dioxide BUN Creatinine Glucose POC Glucose 117 H 113 H 131 H Calcium Phosphorus ALT Alkaline Phosphatase Total Creatine Kinase CK-MB (CK-2) Rel Index Troponin T Albumin LDL Cholesterol Direct PTH Intact Salicylates Acetaminophen Crossmatch 03/07/19 03/08/19 03/08/19 05:25 05:33 16:00 WBC RBC 2.44 L Hgb 6.6 L Hct 20.8 L MCH 27 L MCHC RDW 19.2 H Lymph % (Auto) [place] % (Auto) Eos % (Auto) 8.6 H Lymph # 0.8 L [place] # Eos # 0.5 H Seg Neutrophils % 70.7 H Seg Neutrophils # PT INR D-Dimer POC ABG pH POC ABG pCO2 POC ABG pO2 ABG HCO3 ABG Base Excess ABG Hemoglobin Oxyhemoglobin Sodium Potassium Chloride Carbon Dioxide BUN Creatinine Glucose POC Glucose 106 H 108 H Calcium Phosphorus ALT Alkaline Phosphatase Total Creatine Kinase CK-MB (CK-2) Rel Index Troponin T Albumin LDL Cholesterol Direct PTH Intact Salicylates Acetaminophen Crossmatch 03/08/19 03/08/19 03/08/19 16:00 18:38 Unknown WBC RBC Hgb Hct MCH MCHC RDW Lymph % (Auto) [place] % (Auto) Eos % (Auto) Lymph # [place] # Eos # Seg Neutrophils % Seg Neutrophils # PT INR D-Dimer POC ABG pH POC ABG pCO2 POC ABG pO2 ABG HCO3 ABG Base Excess ABG Hemoglobin Oxyhemoglobin Sodium Potassium 5.4 H D Chloride Carbon Dioxide BUN 47 H Creatinine 2.6 H Glucose POC Glucose 123 H Calcium Phosphorus ALT < 5 L Alkaline Phosphatase Total Creatine Kinase CK-MB (CK-2) Rel Index Troponin T Albumin 2.2 L LDL Cholesterol Direct PTH Intact Salicylates Acetaminophen Crossmatch See Detail 03/09/19 03/09/19 03/09/19 10:48 12:28 13:53 WBC RBC 2.85 L Hgb 7.7 L Hct 24.2 L MCH 27 L MCHC RDW 18.7 H Lymph % (Auto) [place] % (Auto) Eos % (Auto) Lymph # [place] # Eos # Seg Neutrophils % Seg Neutrophils # PT INR D-Dimer POC ABG pH POC ABG pCO2 POC ABG pO2 ABG HCO3 30.5 H ABG Base Excess 5.6 H ABG Hemoglobin 8.1 L Oxyhemoglobin 93.8 L Sodium Potassium Chloride Carbon Dioxide BUN Creatinine Glucose POC Glucose 114 H Calcium Phosphorus ALT Alkaline Phosphatase Total Creatine Kinase CK-MB (CK-2) Rel Index Troponin T Albumin LDL Cholesterol Direct PTH Intact Salicylates Acetaminophen Crossmatch 03/09/19 03/09/19 03/10/19 17:58 23:53 12:01 WBC RBC Hgb Hct MCH MCHC RDW Lymph % (Auto) [place] % (Auto) Eos % (Auto) Lymph # [place] # Eos # Seg Neutrophils % Seg Neutrophils # PT INR D-Dimer POC ABG pH POC ABG pCO2 POC ABG pO2 ABG HCO3 ABG Base Excess ABG Hemoglobin Oxyhemoglobin Sodium Potassium Chloride Carbon Dioxide BUN Creatinine Glucose POC Glucose 108 H 128 H 144 H Calcium Phosphorus ALT Alkaline Phosphatase Total Creatine Kinase CK-MB (CK-2) Rel Index Troponin T Albumin LDL Cholesterol Direct PTH Intact Salicylates Acetaminophen Crossmatch 03/10/19 03/11/19 03/11/19 16:50 00:24 05:02 WBC RBC Hgb Hct MCH MCHC RDW Lymph % (Auto) [place] % (Auto) Eos % (Auto) Lymph # [place] # Eos # Seg Neutrophils % Seg Neutrophils # PT INR D-Dimer POC ABG pH POC ABG pCO2 POC ABG pO2 ABG HCO3 ABG Base Excess ABG Hemoglobin Oxyhemoglobin Sodium Potassium Chloride Carbon Dioxide BUN Creatinine Glucose POC Glucose 147 H 123 H 120 H Calcium Phosphorus ALT Alkaline Phosphatase Total Creatine Kinase CK-MB (CK-2) Rel Index Troponin T Albumin LDL Cholesterol Direct PTH Intact Salicylates Acetaminophen Crossmatch 03/11/19 03/11/19 03/11/19 11:56 12:20 18:37 WBC RBC Hgb Hct MCH MCHC RDW Lymph % (Auto) [place] % (Auto) Eos % (Auto) Lymph # [place] # Eos # Seg Neutrophils % Seg Neutrophils # PT INR D-Dimer POC ABG pH POC ABG pCO2 POC ABG pO2 ABG HCO3 ABG Base Excess ABG Hemoglobin Oxyhemoglobin Sodium Potassium 5.2 H Chloride Carbon Dioxide BUN Creatinine Glucose POC Glucose 123 H 125 H Calcium Phosphorus ALT Alkaline Phosphatase Total Creatine Kinase CK-MB (CK-2) Rel Index Troponin T Albumin LDL Cholesterol Direct PTH Intact Salicylates Acetaminophen Crossmatch 03/11/19 03/12/19 03/12/19 22:52 12:04 18:25 WBC RBC Hgb Hct MCH MCHC RDW Lymph % (Auto) [place] % (Auto) Eos % (Auto) Lymph # [place] # Eos # Seg Neutrophils % Seg Neutrophils # PT INR D-Dimer POC ABG pH POC ABG pCO2 POC ABG pO2 ABG HCO3 ABG Base Excess ABG Hemoglobin Oxyhemoglobin Sodium Potassium Chloride Carbon Dioxide BUN Creatinine Glucose POC Glucose 110 H 106 H 118 H Calcium Phosphorus ALT Alkaline Phosphatase Total Creatine Kinase CK-MB (CK-2) Rel Index Troponin T Albumin LDL Cholesterol Direct PTH Intact Salicylates Acetaminophen Crossmatch 03/12/19 03/13/19 03/13/19 23:36 04:38 04:38 WBC RBC 2.95 L Hgb 7.9 L Hct 24.9 L MCH 27 L MCHC RDW 19.9 H Lymph % (Auto) 11.1 L [place] % (Auto) 8.1 H Eos % (Auto) 4.4 H Lymph # 0.9 L [place] # Eos # Seg Neutrophils % 75.4 H Seg Neutrophils # PT INR D-Dimer POC ABG pH POC ABG pCO2 POC ABG pO2 ABG HCO3 ABG Base Excess ABG Hemoglobin Oxyhemoglobin Sodium 136 L Potassium 5.1 H Chloride 93.8 L Carbon Dioxide BUN 48 H Creatinine 2.7 H Glucose 102 H POC Glucose 115 H Calcium Phosphorus ALT < 5 L Alkaline Phosphatase 143 H Total Creatine Kinase CK-MB (CK-2) Rel Index Troponin T Albumin 2.5 L LDL Cholesterol Direct PTH Intact Salicylates Acetaminophen Crossmatch 03/13/19 03/13/19 03/13/19 05:33 13:37 18:03 WBC RBC Hgb Hct MCH MCHC RDW Lymph % (Auto) [place] % (Auto) Eos % (Auto) Lymph # [place] # Eos # Seg Neutrophils % Seg Neutrophils # PT INR D-Dimer POC ABG pH POC ABG pCO2 POC ABG pO2 ABG HCO3 ABG Base Excess ABG Hemoglobin Oxyhemoglobin Sodium Potassium Chloride Carbon Dioxide BUN Creatinine Glucose POC Glucose 140 H 150 H 158 H Calcium Phosphorus ALT Alkaline Phosphatase Total Creatine Kinase CK-MB (CK-2) Rel Index Troponin T Albumin LDL Cholesterol Direct PTH Intact Salicylates Acetaminophen Crossmatch 03/13/19 03/14/19 03/14/19 23:32 05:24 12:20 WBC RBC Hgb Hct MCH MCHC RDW Lymph % (Auto) [place] % (Auto) Eos % (Auto) Lymph # [place] # Eos # Seg Neutrophils % Seg Neutrophils # PT INR D-Dimer POC ABG pH POC ABG pCO2 POC ABG pO2 ABG HCO3 ABG Base Excess ABG Hemoglobin Oxyhemoglobin Sodium Potassium Chloride Carbon Dioxide BUN Creatinine Glucose POC Glucose 162 H 146 H 127 H Calcium Phosphorus ALT Alkaline Phosphatase Total Creatine Kinase CK-MB (CK-2) Rel Index Troponin T Albumin LDL Cholesterol Direct PTH Intact Salicylates Acetaminophen Crossmatch 03/14/19 03/14/19 03/15/19 18:05 23:57 04:38 WBC 12.8 H RBC 3.11 L Hgb 8.1 L Hct 26.5 L MCH 26 L MCHC 31 L RDW 19.7 H Lymph % (Auto) 4.4 L [place] % (Auto) 7.4 H Eos % (Auto) Lymph # 0.6 L [place] # 0.9 H Eos # Seg Neutrophils % 87.3 H Seg Neutrophils # 11.2 H PT INR D-Dimer POC ABG pH POC ABG pCO2 POC ABG pO2 ABG HCO3 ABG Base Excess ABG Hemoglobin Oxyhemoglobin Sodium Potassium Chloride Carbon Dioxide BUN Creatinine Glucose POC Glucose 142 H 155 H Calcium Phosphorus ALT Alkaline Phosphatase Total Creatine Kinase CK-MB (CK-2) Rel Index Troponin T Albumin LDL Cholesterol Direct PTH Intact Salicylates Acetaminophen Crossmatch 03/15/19 03/15/19 03/15/19 04:38 05:31 11:32 WBC RBC Hgb Hct MCH MCHC RDW Lymph % (Auto) [place] % (Auto) Eos % (Auto) Lymph # [place] # Eos # Seg Neutrophils % Seg Neutrophils # PT INR D-Dimer POC ABG pH POC ABG pCO2 POC ABG pO2 ABG HCO3 ABG Base Excess ABG Hemoglobin Oxyhemoglobin Sodium 135 L Potassium Chloride 91.9 L Carbon Dioxide BUN 54 H Creatinine 2.8 H Glucose 128 H POC Glucose 160 H 109 H Calcium 11.1 H Phosphorus ALT Alkaline Phosphatase 161 H Total Creatine Kinase CK-MB (CK-2) Rel Index Troponin T Albumin 2.3 L LDL Cholesterol Direct PTH Intact Salicylates Acetaminophen Crossmatch 03/15/19 03/15/19 03/16/19 18:15 23:41 05:40 WBC RBC Hgb Hct MCH MCHC RDW Lymph % (Auto) [place] % (Auto) Eos % (Auto) Lymph # [place] # Eos # Seg Neutrophils % Seg Neutrophils # PT INR D-Dimer POC ABG pH POC ABG pCO2 POC ABG pO2 ABG HCO3 ABG Base Excess ABG Hemoglobin Oxyhemoglobin Sodium Potassium Chloride Carbon Dioxide BUN Creatinine Glucose POC Glucose 151 H 110 H 163 H Calcium Phosphorus ALT Alkaline Phosphatase Total Creatine Kinase CK-MB (CK-2) Rel Index Troponin T Albumin LDL Cholesterol Direct PTH Intact Salicylates Acetaminophen Crossmatch 03/16/19 03/16/19 03/16/19 11:55 17:04 23:58 WBC RBC Hgb Hct MCH MCHC RDW Lymph % (Auto) [place] % (Auto) Eos % (Auto) Lymph # [place] # Eos # Seg Neutrophils % Seg Neutrophils # PT INR D-Dimer POC ABG pH POC ABG pCO2 POC ABG pO2 ABG HCO3 ABG Base Excess ABG Hemoglobin Oxyhemoglobin Sodium Potassium Chloride Carbon Dioxide BUN Creatinine Glucose POC Glucose 114 H 147 H 192 H Calcium Phosphorus ALT Alkaline Phosphatase Total Creatine Kinase CK-MB (CK-2) Rel Index Troponin T Albumin LDL Cholesterol Direct PTH Intact Salicylates Acetaminophen Crossmatch 03/17/19 05:53 WBC RBC Hgb Hct MCH MCHC RDW Lymph % (Auto) [place] % (Auto) Eos % (Auto) Lymph # [place] # Eos # Seg Neutrophils % Seg Neutrophils # PT INR D-Dimer POC ABG pH POC ABG pCO2 POC ABG pO2 ABG HCO3 ABG Base Excess ABG Hemoglobin Oxyhemoglobin Sodium Potassium Chloride Carbon Dioxide BUN Creatinine Glucose POC Glucose 151 H Calcium Phosphorus ALT Alkaline Phosphatase Total Creatine Kinase CK-MB (CK-2) Rel Index Troponin T Albumin LDL Cholesterol Direct PTH Intact Salicylates Acetaminophen Crossmatch
--- NOTE | 2019-03-17 11:21 | Consultation ---
History of Present Illness - Reason for Consult Consult date: 03/17/19 - History of Present Illness 63 yo M PMHx CVA, CHF, AICD, DM2, L foot ulcer, ESRD on HD, HTN, afib admitted to the ED hypotensive and confused 24 days ago. he was intubated at that time for airway protection and remains that way today. He was fluid overloaded at the time with pleural effusions. He had been progressing with improvement in his respiratory status and there had been discharge planning in place with trying to find an outpatient facility for him to go to. Yesterday, he spiked a fever to 101.8. Sputum cultures were obtained at the time and are now growing a GNR pending speciation and sensitivities. He currently has a leukocytosis which is worsened to 13. Not currently receiving antibiotics. He was seen by our group in December of this year for a sacral necrotizing wound with osteo for which he received 6 weeks of meropenem and vancomycin. Imaging personally reviewed: 03/15 CXR: Bilateral edema/infiltrate, mild improvement from previous. Past History Past Medical History: atrial fib, anemia, diabetes, dialysis, ESRD, hypertension Past Surgical History: appendectomy, arthroscopy, Other (left upper extremity AV fistula later converted to AVG by Dr. Chaparro, Permacath placement, Tunneled PICC line) Social history: no significant social history, other (Personal [facility] patient) Family history: hypertension Medications and Allergies Allergies Allergy/AdvReac Type Severity Reaction Status Date / Time haloperidol [From Haldol] AdvReac Unknown Verified 03/13/18 12:10 haloperidol lactate AdvReac Unknown Verified 03/13/18 12:10 [From Haldol] Home Medications Medication Instructions Recorded Confirmed Last Taken Type risperiDONE [RisperDAL] 1 mg PO QAM 03/13/18 02/21/19 Unknown History Sertraline [Zoloft] 100 mg PO QDAY 08/26/18 02/21/19 Unknown History Polyethylene Glycol 3350 [Miralax 17 gm PO QDAY #30 packet 11/05/18 02/21/19 Unknown Rx 3350] Aspirin EC [Halfprin EC] 81 mg PO DAILY #30 11/19/18 02/21/19 Unknown Rx Docusate Sodium [Colace CAP] 100 mg PO BID #60 11/19/18 02/21/19 Unknown Rx Folic Acid [Folvite] 1 mg PO DAILY #30 tab 11/19/18 02/21/19 Unknown Rx Famotidine [Pepcid] 20 mg PO DAILY tablet 12/08/18 02/21/19 Unknown Rx Gabapentin [Neurontin] 100 mg PO QHS capsule 12/08/18 02/21/19 Unknown Rx Metoprolol [Lopressor TAB] 50 mg PO BID 30 Days tablet 12/08/18 02/21/19 Unknown Rx Sevelamer Carbonate [Renvela] 800 mg PO TIDWM tablet 12/08/18 02/21/19 Unknown Rx hydrALAZINE [Apresoline TAB] 100 mg PO Q8HR #120 tablet 12/08/18 02/21/19 U nknown Rx Acetaminophen [Acetaminophen TAB] 650 mg PO Q12H PRN 12/15/18 02/21/19 Unknown History Glucagon,Human Recombinant 1 mg IJ Q15MIN PRN 12/15/18 02/21/19 Unknown History [Glucagon Emergency Kit] Insulin Aspart [NovoLOG 100 See Protocol SQ QWEEK 12/15/18 02/21/19 Unknown History UNITS/ML VIAL] Active Meds: Active Medications Acetaminophen (Tylenol) 650 mg PO Q4H PRN PRN Reason: Pain MILD(1-3)/Fever >100.5/HILL Last Admin: 03/17/19 08:29 Dose: 650 mg Documented by: Albuterol/Ipratropium (Duoneb *Not For Prn Use*) 1 ampul IH TIDRT [facility] Last Admin: 03/17/19 08:33 Dose: 1 ampul Documented by: Lipase/Protease/Amylase ([place] Barrientos 10,500 Unit) 1 each FEEDTUBE PRN PRN PRN Reason: For Clogged Feeding Tube Dextrose (D50w (25gm) Syringe) 50 ml IV PRN PRN PRN Reason: Hypoglycemia Last Admin: 03/03/19 17:37 Dose: 50 ml Documented by: Famotidine (Pepcid) 20 mg PO DAILY [facility] Last Admin: 03/17/19 09:15 Dose: 20 mg Documented by: Heparin Sodium (Porcine) (Heparin) 5,000 unit SUB-Q Q12HR [facility] Last Admin: 03/17/19 09:15 Dose: 5,000 unit Documented by: Hydrophilic Ointment (Vaseline Lip Therapy) 1 applic TP Q2HR PRN PRN Reason: Dry Lips Last Admin: 03/05/19 08:16 Dose: 1 applic Documented by: Sodium Chloride (Nacl 0.9%) 100 mls @ 999 mls/hr IV UMA PRN PRN Reason: Hypotension Insulin Human Regular (Humulin R) 0 units SUB-Q Q6HR [facility]; Protocol Last Admin: 03/17/19 06:00 Dose: 1 units Documented by: Metoprolol Tartrate (Lopressor) 2.5 mg IV Q4HR PRN PRN Reason: Tachycardia Last Admin: 03/15/19 05:15 Dose: 2.5 mg Documented by: Metoprolol Tartrate (Lopressor) 25 mg PO TID [facility] Last Admin: 03/17/19 08:28 Dose: 25 mg Documented by: Multi-Ingred Cream/Lotion/Oil/Oint (Artificial Tears Ophth Oint) 1 applic OU Q4HR PRN PRN Reason: Dry Eye(s) Ondansetron HCl (Zofran) 4 mg IV Q8H PRN PRN Reason: Nausea And Vomiting Last Admin: 03/12/19 21:39 Dose: 4 mg Documented by: Risperidone (Risperdal) 1 mg PO DAILY [facility] Last Admin: 03/17/19 09:15 Dose: 1 mg Documented by: Scopolamine (Transderm-Scop) 1 each TD Q3D [facility] Last Admin: 03/16/19 03:41 Dose: 1 each Documented by: Sertraline HCl (Zoloft) 100 mg PO DAILY [facility] Last Admin: 03/17/19 09:15 Dose: 100 mg Documented by: Simple Syrup (Simple Syrup) 15 ml FEEDTUBE PRN PRN PRN Reason: Hypoglycemia Simple Syrup (Simple Syrup) 30 ml FEEDTUBE PRN PRN PRN Reason: Hypoglycemia Sodium Bicarbonate (Sodium Bicarbonate) 325 mg FEEDTUBE PRN PRN PRN Reason: For Clogged Feeding Tube Sodium Chloride (Sodium Chloride Flush Syringe 10 Ml) 10 ml IV BID [facility] Last Admin: 03/17/19 09:15 Dose: 10 ml Documented by: Sodium Chloride (Sodium Chloride Flush Syringe 10 Ml) 10 ml IV PRN PRN PRN Reason: LINE FLUSH Last Admin: 02/24/19 22:00 Dose: 10 ml Documented by: Tramadol HCl (Ultram) 50 mg PO Q6H PRN PRN Reason: Pain, Moderate (4-6) Last Admin: 03/12/19 21:39 Dose: 50 mg Documented by: Review of Systems ROS unobtainable: due to endotracheal tube Physical Examination - Physical Exam Narrative exam: Constitutional: Alert, cooperative. No acute distress Head, Ears, Nose: Normocephalic, atraumatic. External ears, nose normal Eyes: Conjunctivae/corneas clear. No icterus. No ptosis. Neck: Supple, no meningeal signs. Trach in place. Oral: dentition fair, no thrush Cardiovascular: S1, S2 normal. Respiratory: Good air entry, clear to auscultation bilaterally GI: Soft, non-tender; bowel sounds normal. No peritoneal signs. Musculoskeletal: No pedal edema, no cyanosis. Skin: No rash or abscess Hem/Lymphatic: No palpable cervical or supraclavicular nodes. No lymphangitis Psych: Mood ok. Affect normal Neurological: Awake, trached. No gross abnormality - Constitutional Vitals: Vital Signs Temp Pulse Resp BP Pulse Ox 99.9 F H 114 H 27 H 93/42 98 03/17/19 08:00 03/17/19 10:00 03/17/19 10:00 03/17/19 10:00 03/17/19 10:00 Temperature -Last 24 Hours Temperature 99.9 F Temperature 101.8 F Temperature 100.7 F Temperature 98.3 F Temperature 98.3 F Temperature 100.5 F Temperature 100.6 F Temperature 100.5 F Results - Labs CBC & Chem 7: 03/15/19 04:38 03/15/19 04:38 Labs: Abnormal lab results 03/16/19 03/16/19 03/16/19 Range/Units 11:55 17:04 23:58 POC Glucose 114 H 147 H 192 H (70-105) 03/17/19 Range/Units 05:53 POC Glucose 151 H (70-105) - Imaging and Cardiology Chest x-ray: image reviewed Assessment and Plan Cultures: 03/14 Sputum Cx: GNR pending finalization 03/14 BCx: NGTD A/P: 63 yo M PMHx CVA, CHF, AICD, DM2, L foot ulcer, ESRD on HD, HTN, afib admitted with respiratory failure and fluid overload 1. Sepsis secondary to pneumonia/tracheitis - Cultures with GNR pending finalization. These can often be colonizers of the trach tube, but given his rising leukocytosis and new fevers would treat it as real. Will start cefepime 2g q24h as renal dosing. 2. Hypoxic respiratory failure - 2/2 fluid overload. Improving 3. DM2 4. L foot ulcer 5. Hx of sacral ulcer s/p extensive treatment - treated with 6 weeks of vancomycin and meropenem earlier this year 6. ESRD on HD 7. HTN 8. Afib Recs: - start cefepime 2g q24h - follow up sputum culture finalization - follow up blood cultures Thank you for the consult, we will continue to follow. Sherman Shirley MD [facility] M: [phone] O: [phone] F: [phone]
--- NOTE | 2019-03-17 13:53 | Progress Note ---
Assessment and Plan - Patient Problems (1) ESRD (end stage renal disease) on dialysis Current Visit: Yes Status: Chronic Plan to address problem: End stage renal disease : - access: Left arm AVG Continue hemodialysis Saturday (2) Diabetes mellitus, insulin dependent (IDDM), uncontrolled Current Visit: No Status: Acute Plan to address problem: DM type II uncontrolled Monitor Fingersticks (3) Anemia in chronic kidney disease, on chronic dialysis Current Visit: Yes Status: Acute Plan to address problem: Anemia of chronic kidney disease hemoglobin 8.2 g. We'll give Epogen Monitor CBC (4) Hypertension Current Visit: Yes Status: Acute Plan to address problem: Hypertension controlled Ensure medications Monitor blood pressure Subjective Principal diagnosis: respiratory failure Interval history: 63-year-old gentleman with medical history significant for end-stage renal dise ase on hemodialysis via a left arm AV graft is currently in the [facility] for plan for dialysis today Patient is poorly responsive review of systems unobtainable tracheal stain with gram positive rods. Objective - Vital Signs Vital signs: Vital Signs - 12hr 03/17/19 03/17/19 03/17/19 02:00 02:58 03:00 Temperature 101.8 F H Pulse Rate 106 H 107 H Pulse Rate [ Anterior Bilateral Throughout] Pulse Rate [ From Monitor] Respiratory 30 H 33 H Rate Respiratory Rate [Anterior Bilateral Throughout] Blood Pressure 114/59 122/56 O2 Sat by Pulse 100 100 Oximetry 03/17/19 03/17/19 03/17/19 04:00 05:01 06:00 Temperature Pulse Rate 112 H 113 H 120 H Pulse Rate [ Anterior Bilateral Throughout] Pulse Rate [ 109 H From Monitor] Respiratory 24 22 32 H Rate Respiratory Rate [Anterior Bilateral Throughout] Blood Pressure 118/55 120/68 108/52 O2 Sat by Pulse 99 97 98 Oximetry 03/17/19 03/17/19 03/17/19 07:00 08:00 08:28 Temperature 99.9 F H Pulse Rate 114 H 110 H 120 H Pulse Rate [ 118 H Anterior Bilateral Throughout] Pulse Rate [ 121 H From Monitor] Respiratory 33 H 17 Rate Respiratory 34 H Rate [Anterior Bilateral Throughout] Blood Pressure 114/54 103/52 103/52 O2 Sat by Pulse 100 100 Oximetry 03/17/19 03/17/19 03/17/19 08:39 09:00 10:00 Temperature Pulse Rate 102 H 114 H Pulse Rate [ Anterior Bilateral Throughout] Pulse Rate [ From Monitor] Respiratory 24 27 H Rate Respiratory Rate [Anterior Bilateral Throughout] Blood Pressure 91/50 93/42 O2 Sat by Pulse 96 99 98 Oximetry 03/17/19 03/17/19 11:00 12:00 Temperature 99.1 F Pulse Rate 114 H Pulse Rate [ Anterior Bilateral Throughout] Pulse Rate [ From Monitor] Respiratory 26 H Rate Respiratory Rate [Anterior Bilateral Throughout] Blood Pressure 93/42 O2 Sat by Pulse 98 Oximetry - General Appearance General appearance: well-developed, well-nourished EENT: ATNC, PERRL, mucous membranes moist Neck: no JVD Respiratory: Present: Clear to Ascultation Cardiology: regular, S1S2 Gastrointestinal: normal, normoactive bowel sounds Integumentary: no rash Neurologic: alert and oriented x3, CN 3-12 intact Psychiatric: mood/affect appropriate - Lab 03/15/19 04:38 03/15/19 04:38 Most recent lab results ABG pH 7.435 pH Units (7.350-7.450) 03/09/19 13:53 ABG pCO2 46.5 mm Hg 03/09/19 13:53 ABG pO2 80.8 mm Hg (80.0-90.0) 03/09/19 13:53 ABG HCO3 30.5 mmol/L (20.0-26.0) H 03/09/19 13:53 ABG O2 Saturation 96.5 % (95.0-99.0) 03/09/19 13:53 Calcium 11.1 mg/dL (8.4-10.2) H 03/15/19 04:38 Phosphorus 3.10 mg/dL (2.5-4.5) 03/15/19 04:38 Magnesium 2.30 mg/dL (1.7-2.3) 03/15/19 04:38 - Imaging Chest x-ray: image reviewed (I reviewed CXR without overt edema. ) Medications & Allergies - Medications Allergies/Adverse Reactions: Allergies haloperidol [From Haldol] Adverse Reaction (Verified 03/13/18 12:10) Unknown haloperidol lactate [From Haldol] Adverse Reaction (Verified 03/13/18 12:10) Unknown Home Medications: Home Medications Medication Instructions Recorded Confirmed Last Taken Type risperiDONE [RisperDAL] 1 mg PO QAM 03/13/18 02/21/19 Unknown History Sertraline [Zoloft] 100 mg PO QDAY 08/26/18 02/21/19 Unknown History Polyethylene Glycol 3350 [Miralax 17 gm PO QDAY #30 packet 11/05/18 02/21/19 Unknown Rx 3350] Aspirin EC [Halfprin EC] 81 mg PO DAILY #30 11/19/18 02/21/19 Unknown Rx Docusate Sodium [Colace CAP] 100 mg PO BID #60 11/19/18 02/21/19 Unknown Rx Folic Acid [Folvite] 1 mg PO DAILY #30 tab 11/19/18 02/21/19 Unknown Rx Famotidine [Pepcid] 20 mg PO DAILY tablet 12/08/18 02/21/19 Unknown Rx Gabapentin [Neurontin] 100 mg PO QHS capsule 12/08/18 02/21/19 Unknown Rx Metoprolol [Lopressor TAB] 50 mg PO BID 30 Days tablet 12/08/18 02/21/19 Unknown Rx Sevelamer Carbonate [Renvela] 800 mg PO TIDWM tablet 12/08/18 02/21/19 Unknown Rx hydrALAZINE [Apresoline TAB] 100 mg PO Q8HR #120 tablet 12/08/18 02/21/19 Unknown Rx Acetaminophen [Acetaminophen TAB] 650 mg PO Q12H PRN 12/15/18 02/21/19 Unknown History Glucagon,Human Recombinant 1 mg IJ Q15MIN PRN 12/15/18 02/21/19 Unknown History [Glucagon Emergency Kit] Insulin Aspart [NovoLOG 100 See Protocol SQ QWEEK 12/15/18 02/21/19 Unknown History UNITS/ML VIAL] Active Medications: Generic Name Dose Route Start Last Admin Trade Name Freq PRN Reason Stop Dose Admin Acetaminophen 650 mg 02/21/19 22:19 03/17/19 08:29 Tylenol PO 650 mg Q4H PRN Administration Pain MILD(1-3)/Fever >100.5/HILL Albuterol/Ipratropium 1 ampul 02/24/19 20:00 03/17/19 08:33 Duoneb *Not For Prn Use* IH 1 ampul TIDRT [facility] Administration Lipase/Protease/Amylase 1 each 03/05/19 14:04 Pancrejewel Barrientos 10,500 Unit FEEDTUBE PRN PRN For Clogged Feeding Tube Dextrose 50 ml 02/21/19 22:22 03/03/19 17:37 D50w (25gm) Syringe IV 50 ml PRN PRN Administration Hypoglycemia Famotidine 20 mg 02/23/19 10:00 03/17/19 09:15 Pepcid PO 20 mg DAILY [facility] Administration Heparin Sodium (Porcine) 5,000 unit 03/04/19 22:00 03/17/19 09:15 Heparin SUB-Q 5,000 unit Q12HR [facility] Administration Hydrophilic Ointment 1 applic 02/21/19 18:24 03/05/19 08:16 Vaseline Lip Therapy TP 1 applic Q2HR PRN Administration Dry Lips Sodium Chloride 100 mls @ 999 mls/hr 02/26/19 09:00 Nacl 0.9% IV UMA PRN Hypotension Insulin Human Regular 0 units 02/26/19 12:00 03/17/19 11:22 Humulin R SUB-Q 1 units Q6HR [facility] Administration Protocol Metoprolol Tartrate 2.5 mg 02/28/19 12:06 03/15/19 05:15 Lopressor IV 2.5 mg Q4HR PRN Administration Tachycardia Metoprolol Tartrate 25 mg 03/02/19 14:00 03/17/19 08:28 Lopressor PO 25 mg TID [facility] Administration Multi-Ingred Cream/Lotion/Oil/Oint 1 applic 02/21/19 18:24 Artificial Tears Ophth Oint OU Q4HR PRN Dry Eye(s) Ondansetron HCl 4 mg 02/21/19 22:19 03/12/19 21:39 Zofran IV 4 mg Q8H PRN Administration Nausea And Vomiting Risperidone 1 mg 02/25/19 13:00 03/17/19 09:15 Risperdal PO 1 mg DAILY [facility] Administration Scopolamine 1 each 03/13/19 04:00 03/16/19 03:41 Transderm-Scop TD 1 each Q3D [facility] Administration Sertraline HCl 100 mg 02/25/19 13:00 03/17/19 09:15 Zoloft PO 100 mg DAILY [facility] Administration Simple Syrup 15 ml 03/05/19 14:04 Simple Syrup FEEDTUBE PRN PRN Hypoglycemia Simple Syrup 30 ml 03/05/19 14:04 Simple Syrup FEEDTUBE PRN PRN Hypoglycemia Sodium Bicarbonate 325 mg 03/05/19 14:04 Sodium Bicarbonate FEEDTUBE PRN PRN For Clogged Feeding Tube Sodium Chloride 10 ml 02/22/19 10:00 03/17/19 09:15 Sodium Chloride Flush Syringe 10 Ml IV 10 ml BID [facility] Administration Sodium Chloride 10 ml 02/21/19 22:19 02/24/19 22:00 Sodium Chloride Flush Syringe 10 Ml IV 10 ml PRN PRN Administration LINE FLUSH Tramadol HCl 50 mg 03/05/19 10:08 03/12/19 21:39 Ultram PO 50 mg Q6H PRN Administration Pain, Moderate (4-6)
[2019-03-17] MEDS ORDERED: CEFEPIME/NS 2 GM/100 ML 2 GM/100 ML BAG IV SCH (15:00)
[2019-03-17] MEDS ORDERED: CEFEPIME/NS 1 GM/100 ML 1 GM/100 ML BAG IV SCH (18:00)
[2019-03-18] MEDS: INSULIN REGULAR, HUMAN 100 UNITS/1 ML SUB-Q SCH ×5 (01:27→23:59)
[2019-03-18] MEDS: traMADol 50 MG TAB PO PRN (04:38)
[2019-03-18] MEDS: ACETAMINOPHEN 325 MG TAB PO PRN (04:53)
[2019-03-18] MEDS ORDERED: LIP THERAPY VASELINE TP PRN (05:45)
[2019-03-18] MEDS ORDERED: MINERAL OIL/PETROLATUM, WHITE OPHTH OINT 3.5 GM OU PRN (05:45)
--- NOTE | 2019-03-18 05:52 | Event Note ---
Date: 03/18/19 Pt desats low to mid 70's on RA with difficulty breathing. Pt placed back on vent.
--- NOTE | 2019-03-18 06:18 | XRay Report ---
CHEST 1 VIEW INDICATION: ETT placement. COMPARISON: 03/15/2019. FINDINGS: Support devices: Tracheostomy catheter and PICC line in satisfactory position. Heart: Stable cardiomegaly. Lungs/Pleura: Improving small basilar effusions with associated volume loss. Edema has improved as we ll. There is new infiltrate at the left mid/upper zone. Additional findings: None. IMPRESSION: 1. Lines and tubes in satisfactory position. 2. New left-sided pneumonia. 3. Pleural fluid, volume loss and edema has improved. Signer Name: Paco Nguyen MD Signed: 03/18/2019 6:14 AM Workstation Name: [id number]
[2019-03-18] MEDS: IPRATROPIUM/ALBUTEROL SULFATE 3 ML AMPUL.NEB IH SCH ×3 (08:38→20:21)
[2019-03-18] MEDS: HEPARIN 5,000 UNIT/1 ML VIAL SUB-Q SCH ×2 (09:44→21:53)
[2019-03-18] MEDS: CEFEPIME/NS 2 GM/100 ML 2 GM/100 ML BAG IV SCH (09:45)
[2019-03-18] MEDS: SERTRALINE 100 MG TAB PO SCH (09:45)
[2019-03-18] MEDS: FAMOTIDINE 20 MG TAB PO SCH (09:45)
[2019-03-18] MEDS: METOPROLOL TARTRATE 25 MG TAB PO SCH ×3 (09:45→20:40)
[2019-03-18] MEDS: risperiDONE 1 MG TAB PO SCH (09:46)
--- NOTE | 2019-03-18 11:25 | Progress Note ---
Assessment and Plan 63 y/o male with multiple medical issues admitted with altered mental status, acute respiratory failure requiring mechanical ventilation 1. Now back on ventilator. Will have HD today. Reviewed CXR from this am. There is a questionable left upper lobe infiltrate. Started on Cefepime by ID, may need to consider a one time dose of Vanc given fever and length of stay in hospital. could be HCAP. 2. Placement on hold now given acute clinical change 3. If patient spikes another temp, will need repeat blood cultures. Does not make urine. 4. May need bronch at some point. Repeat CXR again on Saturday. CCT 31 minutes. Subjective Date of service: 03/18/19 Principal diagnosis: respiratory failure Interval history: Had to be placed back on the ventilator early am. Not sure exactly what happened to cause this. Did spike a temp. Now growing GNR's from sputum drawn on the . Remainder of the review is negative. No family currently at bedside. Patient now on PSV placed by this am's RT. Objective Vital Signs - 12hr 03/18/19 03/18/19 03/18/19 00:00 00:01 01:01 Temperature 99.1 F Pulse Rate 130 H 120 H 111 H Pulse Rate [ Anterior Bilateral Throughout] Pulse Rate [ 129 H From Monitor] Respiratory 16 31 H 25 H Rate Respiratory Rate [Anterior Bilateral Throughout] Blood Pressure 107/57 109/66 O2 Sat by Pulse 98 99 97 Oximetry 03/18/19 03/18/19 03/18/19 02:01 03:01 04:00 Temperature 101.6 F H Pulse Rate 127 H 135 H 144 H Pulse Rate [ Anterior Bilateral Throughout] Pulse Rate [ 137 H From Monitor] Respiratory 39 H 36 H 29 H Rate Respiratory Rate [Anterior Bilateral Throughout] Blood Pressure 127/60 128/58 O2 Sat by Pulse 99 98 99 Oximetry 03/18/19 03/18/19 03/18/19 04:01 05:00 05:54 Temperature Pulse Rate 138 H 132 H 137 H Pulse Rate [ Anterior Bilateral Throughout] Pulse Rate [ From Monitor] Respiratory 44 H 24 Rate Respiratory Rate [Anterior Bilateral Throughout] Blood Pressure 123/52 121/58 98/57 O2 Sat by Pulse 96 99 100 Oximetry 03/18/19 03/18/19 03/18/19 06:01 07:01 08:00 Temperature 97.8 F Pulse Rate 140 H 120 H 118 H Pulse Rate [ Anterior Bilateral Throughout] Pulse Rate [ 105 H From Monitor] Respiratory 28 H 24 18 Rate Respiratory Rate [Anterior Bilateral Throughout] Blood Pressure 98/52 85/49 93/63 O2 Sat by Pulse 100 98 99 Oximetry 03/18/19 03/18/19 03/18/19 08:32 08:35 08:38 Temperature Pulse Rate 110 H 110 H Pulse Rate [ 116 H Anterior Bilateral Throughout] Pulse Rate [ From Monitor] Respiratory 23 Rate Respiratory 22 Rate [Anterior Bilateral Throughout] Blood Pressure 93/63 93/63 O2 Sat by Pulse 100 99 Oximetry 03/18/19 03/18/19 03/18/19 09:00 09:45 10:00 Temperature Pulse Rate 115 H 113 H 108 H Pulse Rate [ Anterior Bilateral Throughout] Pulse Rate [ From Monitor] Respiratory 23 20 Rate Respiratory Rate [Anterior Bilateral Throughout] Blood Pressure 96/51 96/51 89/47 O2 Sat by Pulse 99 100 Oximetry Constitutional: no acute distress, alert Eyes: non-icteric ENT: oropharynx moist Neck: supple Effort: normal Ascultation: Bilateral: diminished breath sounds, other (coarse BS bilaterally) Percussion: Bilateral: not dull Cardiovascular: other (tachy, RR; no mrg) Gastrointestinal: normoactive bowel sounds, soft, non-tender, non-distended, other (ostomy in place, brown stool) Extremities: no cyanosis, no edema, pink and warm Neurologic: other (mild weakness LUE, o/w nonfocal) Psychiatric: other (unable to assess) CBC and BMP: 03/15/19 04:38 03/15/19 04:38 ABG, PT/INR, D-dimer: ABG POC ABG pH 7.510 (7.35-7.45) H 03/18/19 06:38 ABG pH 7.435 pH Units (7.350-7.450) 03/09/19 13:53 POC ABG pCO2 38.9 (35-45) 03/18/19 06:38 ABG pCO2 46.5 mm Hg 03/09/19 13:53 POC ABG pO2 164 (80-105) H 03/18/19 06:38 ABG pO2 80.8 mm Hg (80.0-90.0) 03/09/19 13:53 POC ABG HCO3 31.0 (22-26 mml/L) 03/18/19 06:38 POC ABG Total CO2 32 (23-27mmol/L) 03/18/19 06:38 POC ABG O2 Sat 100 03/18/19 06:38 ABG O2 Saturation 96.5 % (95.0-99.0) 03/09/19 13:53 PT/INR, D-dimer PT 16.3 Sec. (12.2-14.9) H 03/01/19 09:39 INR 1.35 (0.87-1.13) H 03/01/19 09:39 2987.82 ng/mlDDU (0-234) H 02/22/19 05:54 Abnormal lab findings: Abnormal Labs 02/21/19 02/21/19 02/21/19 18:30 18:30 18:30 WBC RBC 3.26 L Hgb 8.8 L Hct 29.0 L MCH 27 L MCHC 30 L RDW 19.1 H Lymph % (Auto) 6.1 L [place] % (Auto) Eos % (Auto) Lymph # 0.4 L [place] # Eos # Seg Neutrophils % 86.2 H Seg Neutrophils # PT INR D-Dimer POC ABG pH POC ABG pCO2 POC ABG pO2 ABG HCO3 ABG Base Excess ABG Hemoglobin Oxyhemoglobin Sodium 133 L Potassium 3.3 L Chloride 93.1 L Carbon Dioxide 33 H BUN Creatinine Glucose 161 H POC Glucose Calcium Phosphorus ALT Alkaline Phosphatase 136 H Total Creatine Kinase 37 L CK-MB (CK-2) Rel Index Troponin T 0.192 H* Albumin 2.4 L LDL Cholesterol Direct 36 L PTH Intact Salicylates Acetaminophen Crossmatch 02/21/19 02/21/19 02/21/19 18:42 20:04 20:04 WBC RBC Hgb Hct MCH MCHC RDW Lymph % (Auto) [place] % (Auto) Eos % (Auto) Lymph # [place] # Eos # Seg Neutrophils % Seg Neutrophils # PT INR D-Dimer POC ABG pH POC ABG pCO2 56.7 H POC ABG pO2 291 H ABG HCO3 ABG Base Excess ABG Hemoglobin Oxyhemoglobin Sodium Potassium Chloride Carbon Dioxide BUN Creatinine Glucose POC Glucose Calcium Phosphorus ALT Alkaline Phosphatase Total Creatine Kinase CK-MB (CK-2) Rel Index Troponin T Albumin LDL Cholesterol Direct PTH Intact Salicylates < 0.3 L Acetaminophen < 5.0 L Crossmatch 02/21/19 02/22/19 02/22/19 22:35 03:42 03:42 WBC RBC 3.20 L Hgb 8.8 L Hct 27.6 L MCH MCHC RDW 18.9 H Lymph % (Auto) 7.4 L [place] % (Auto) Eos % (Auto) Lymph # 0.7 L [place] # Eos # Seg Neutrophils % 84.7 H Seg Neutrophils # PT INR D-Dimer POC ABG pH POC ABG pCO2 POC ABG pO2 ABG HCO3 ABG Base Excess ABG Hemoglobin Oxyhemoglobin Sodium 134 L Potassium 2.6 L* D Chloride Carbon Dioxide BUN Creatinine Glucose POC Glucose Calcium Phosphorus ALT Alkaline Phosphatase Total Creatine Kinase CK-MB (CK-2) Rel Index 5.2 H Troponin T 0.202 H* Albumin LDL Cholesterol Direct PTH Intact Salicylates Acetaminophen Crossmatch 02/22/19 02/22/19 02/22/19 03:42 05:54 09:04 WBC RBC Hgb Hct MCH MCHC RDW Lymph % (Auto) [place] % (Auto) Eos % (Auto) Lymph # [place] # Eos # Seg Neutrophils % Seg Neutrophils # PT INR D-Dimer 2987.82 H POC ABG pH 7.451 H POC ABG pCO2 POC ABG pO2 ABG HCO3 ABG Base Excess ABG Hemoglobin Oxyhemoglobin Sodium Potassium Chloride Carbon Dioxide BUN Creatinine Glucose POC Glucose Calcium Phosphorus ALT Alkaline Phosphatase Total Creatine Kinase CK-MB (CK-2) Rel Index 5.7 H Troponin T 0.193 H* Albumin LDL Cholesterol Direct PTH Intact Salicylates Acetaminophen Crossmatch 02/22/19 02/22/19 02/23/19 10:36 23:56 00:52 WBC RBC Hgb Hct MCH MCHC RDW Lymph % (Auto) [place] % (Auto) Eos % (Auto) Lymph # [place] # Eos # Seg Neutrophils % Seg Neutrophils # PT INR D-Dimer POC ABG pH POC ABG pCO2 POC ABG pO2 ABG HCO3 ABG Base Excess ABG Hemoglobin Oxyhemoglobin Sodium Potassium 3.1 L Chloride Carbon Dioxide BUN Creatinine Glucose POC Glucose 58 L 111 H Calcium Phosphorus ALT Alkaline Phosphatase Total Creatine Kinase CK-MB (CK-2) Rel Index Troponin T Albumin LDL Cholesterol Direct PTH Intact Salicylates Acetaminophen Crossmatch 02/23/19 02/23/19 02/23/19 05:00 06:35 14:26 WBC RBC Hgb Hct MCH MCHC RDW Lymph % (Auto) [place] % (Auto) Eos % (Auto) Lymph # [place] # Eos # Seg Neutrophils % Seg Neutrophils # PT INR D-Dimer POC ABG pH POC ABG pCO2 POC ABG pO2 ABG HCO3 ABG Base Excess ABG Hemoglobin Oxyhemoglobin Sodium 135 L Potassium 3.1 L Chloride Carbon Dioxide BUN 21 H Creatinine 2.0 H Glucose 57 L POC Glucose 64 L 62 L Calcium Phosphorus ALT Alkaline Phosphatase Total Creatine Kinase CK-MB (CK-2) Rel Index Troponin T Albumin LDL Cholesterol Direct PTH Intact Salicylates Acetaminophen Crossmatch 02/24/19 02/24/19 02/24/19 02:11 04:12 04:55 WBC RBC 2.84 L Hgb 7.8 L Hct 24.5 L MCH MCHC RDW 19.5 H Lymph % (Auto) [place] % (Auto) Eos % (Auto) Lymph # [place] # Eos # Seg Neutrophils % Seg Neutrophils # PT INR D-Dimer POC ABG pH 7.511 H POC ABG pCO2 33.9 L POC ABG pO2 62 L ABG HCO3 ABG Base Excess ABG Hemoglobin Oxyhemoglobin Sodium Potassium Chloride Carbon Dioxide BUN Creatinine Glucose POC Glucose 69 L Calcium Phosphorus ALT Alkaline Phosphatase Total Creatine Kinase CK-MB (CK-2) Rel Index Troponin T Albumin LDL Cholesterol Direct PTH Intact Salicylates Acetaminophen Crossmatch 02/24/19 02/24/19 02/25/19 04:55 05:41 04:45 WBC RBC Hgb Hct MCH MCHC RDW Lymph % (Auto) [place] % (Auto) Eos % (Auto) Lymph # [place] # Eos # Seg Neutrophils % Seg Neutrophils # PT INR D-Dimer POC ABG pH 7.466 H POC ABG pCO2 POC ABG pO2 75 L ABG HCO3 ABG Base Excess ABG Hemoglobin Oxyhemoglobin Sodium Potassium Chloride Carbon Dioxide BUN Creatinine 1.8 H Glucose 73 L POC Glucose 127 H Calcium Phosphorus ALT Alkaline Phosphatase Total Creatine Kinase CK-MB (CK-2) Rel Index Troponin T Albumin LDL Cholesterol Direct PTH Intact Salicylates Acetaminophen Crossmatch 02/25/19 02/25/19 02/26/19 16:34 21:33 03:45 WBC RBC 2.96 L Hgb 8.0 L Hct 25.8 L MCH 27 L MCHC 31 L RDW 20.0 H Lymph % (Auto) [place] % (Auto) Eos % (Auto) Lymph # [place] # Eos # Seg Neutrophils % Seg Neutrophils # PT INR D-Dimer POC ABG pH POC ABG pCO2 POC ABG pO2 ABG HCO3 ABG Base Excess ABG Hemoglobin Oxyhemoglobin Sodium Potassium Chloride Carbon Dioxide BUN Creatinine Glucose POC Glucose 141 H 106 H Calcium Phosphorus ALT Alkaline Phosphatase Total Creatine Kinase CK-MB (CK-2) Rel Index Troponin T Albumin LDL Cholesterol Direct PTH Intact Salicylates Acetaminophen Crossmatch 02/26/19 02/26/19 02/26/19 03:45 04:13 07:53 WBC RBC Hgb Hct MCH MCHC RDW Lymph % (Auto) [place] % (Auto) Eos % (Auto) Lymph # [place] # Eos # Seg Neutrophils % Seg Neutrophils # PT INR D-Dimer POC ABG pH 7.470 H POC ABG pCO2 POC ABG pO2 ABG HCO3 ABG Base Excess ABG Hemoglobin Oxyhemoglobin Sodium Potassium Chloride Carbon Dioxide BUN Creatinine 1.8 H Glucose POC Glucose 110 H Calcium Phosphorus ALT Alkaline Phosphatase Total Creatine Kinase CK-MB (CK-2) Rel Index Troponin T Albumin LDL Cholesterol Direct PTH Intact Salicylates Acetaminophen Crossmatch 02/26/19 02/26/19 02/27/19 11:56 17:43 00:12 WBC RBC Hgb Hct MCH MCHC RDW Lymph % (Auto) [place] % (Auto) Eos % (Auto) Lymph # [place] # Eos # Seg Neutrophils % Seg Neutrophils # PT INR D-Dimer POC ABG pH POC ABG pCO2 POC ABG pO2 ABG HCO3 ABG Base Excess ABG Hemoglobin Oxyhemoglobin Sodium Potassium Chloride Carbon Dioxide BUN Creatinine Glucose POC Glucose 112 H 127 H 127 H Calcium Phosphorus ALT Alkaline Phosphatase Total Creatine Kinase CK-MB (CK-2) Rel Index Troponin T Albumin LDL Cholesterol Direct PTH Intact Salicylates Acetaminophen Crossmatch 02/27/19 02/27/19 02/27/19 04:35 13:15 18:02 WBC RBC Hgb Hct MCH MCHC RDW Lymph % (Auto) [place] % (Auto) Eos % (Auto) Lymph # [place] # Eos # Seg Neutrophils % Seg Neutrophils # PT INR D-Dimer POC ABG pH 7.483 H POC ABG pCO2 POC ABG pO2 61 L ABG HCO3 ABG Base Excess ABG Hemoglobin Oxyhemoglobin Sodium Potassium Chloride Carbon Dioxide BUN Creatinine Glucose POC Glucose 143 H 106 H Calcium Phosphorus ALT Alkaline Phosphatase Total Creatine Kinase CK-MB (CK-2) Rel Index Troponin T Albumin LDL Cholesterol Direct PTH Intact Salicylates Acetaminophen Crossmatch 02/28/19 02/28/19 02/28/19 05:50 11:59 17:52 WBC RBC Hgb Hct MCH MCHC RDW Lymph % (Auto) [place] % (Auto) Eos % (Auto) Lymph # [place] # Eos # Seg Neutrophils % Seg Neutrophils # PT INR D-Dimer POC ABG pH POC ABG pCO2 POC ABG pO2 ABG HCO3 ABG Base Excess ABG Hemoglobin Oxyhemoglobin Sodium Potassium Chloride Carbon Dioxide BUN Creatinine Glucose POC Glucose 134 H 128 H 142 H Calcium Phosphorus ALT Alkaline Phosphatase Total Creatine Kinase CK-MB (CK-2) Rel Index Troponin T Albumin LDL Cholesterol Direct PTH Intact Salicylates Acetaminophen Crossmatch 02/28/19 03/01/19 03/01/19 23:13 05:40 09:39 WBC RBC Hgb Hct MCH MCHC RDW Lymph % (Auto) [place] % (Auto) Eos % (Auto) Lymph # [place] # Eos # Seg Neutrophils % Seg Neutrophils # PT 16.3 H INR 1.35 H D-Dimer POC ABG pH POC ABG pCO2 POC ABG pO2 ABG HCO3 ABG Base Excess ABG Hemoglobin Oxyhemoglobin Sodium Potassium Chloride Carbon Dioxide BUN Creatinine Glucose POC Glucose 112 H 111 H Calcium Phosphorus ALT Alkaline Phosphatase Total Creatine Kinase CK-MB (CK-2) Rel Index Troponin T Albumin LDL Cholesterol Direct PTH Intact Salicylates Acetaminophen Crossmatch 03/01/19 03/01/19 03/01/19 11:56 13:54 17:59 WBC RBC Hgb Hct MCH MCHC RDW Lymph % (Auto) [place] % (Auto) Eos % (Auto) Lymph # [place] # Eos # Seg Neutrophils % Seg Neutrophils # PT INR D-Dimer POC ABG pH POC ABG pCO2 POC ABG pO2 ABG HCO3 ABG Base Excess ABG Hemoglobin Oxyhemoglobin Sodium Potassium Chloride Carbon Dioxide BUN 33 H Creatinine 2.8 H D Glucose 176 H POC Glucose 199 H 147 H Calcium Phosphorus ALT Alkaline Phosphatase Total Creatine Kinase CK-MB (CK-2) Rel Index Troponin T Albumin LDL Cholesterol Direct PTH Intact Salicylates Acetaminophen Crossmatch 03/02/19 03/02/19 03/02/19 05:15 05:15 05:15 WBC RBC 2.73 L Hgb 7.4 L Hct 23.0 L MCH 27 L MCHC RDW 19.9 H Lymph % (Auto) [place] % (Auto) 7.9 H Eos % (Auto) 7.6 H Lymph # 1.0 L [place] # Eos # 0.5 H Seg Neutrophils % Seg Neutrophils # PT INR D-Dimer POC ABG pH POC ABG pCO2 POC ABG pO2 ABG HCO3 ABG Base Excess ABG Hemoglobin Oxyhemoglobin Sodium Potassium Chloride Carbon Dioxide BUN 43 H Creatinine 3.2 H Glucose POC Glucose Calcium Phosphorus 2.30 L ALT Alkaline Phosphatase Total Creatine Kinase CK-MB (CK-2) Rel Index Troponin T Albumin LDL Cholesterol Direct PTH Intact 267.6 H Salicylates Acetaminophen Crossmatch 03/02/19 03/02/19 03/03/19 12:32 18:20 13:30 WBC RBC Hgb Hct MCH MCHC RDW Lymph % (Auto) [place] % (Auto) Eos % (Auto) Lymph # [place] # Eos # Seg Neutrophils % Seg Neutrophils # PT INR D-Dimer POC ABG pH POC ABG pCO2 POC ABG pO2 ABG HCO3 ABG Base Excess ABG Hemoglobin Oxyhemoglobin Sodium Potassium Chloride 97.3 L Carbon Dioxide BUN 26 H Creatinine 2.2 H Glucose 73 L POC Glucose 111 H 156 H Calcium Phosphorus ALT Alkaline Phosphatase Total Creatine Kinase CK-MB (CK-2) Rel Index Troponin T Albumin LDL Cholesterol Direct PTH Intact Salicylates Acetaminophen Crossmatch 03/04/19 03/04/19 03/04/19 00:02 05:37 05:40 WBC RBC 2.63 L Hgb 7.2 L Hct 22.2 L MCH MCHC RDW 20.2 H Lymph % (Auto) 10.5 L [place] % (Auto) Eos % (Auto) 4.6 H Lymph # 0.7 L [place] # Eos # Seg Neutrophils % 76.9 H Seg Neutrophils # PT INR D-Dimer POC ABG pH POC ABG pCO2 POC ABG pO2 ABG HCO3 ABG Base Excess ABG Hemoglobin Oxyhemoglobin Sodium Potassium Chloride Carbon Dioxide BUN Creatinine Glucose POC Glucose 136 H 123 H Calcium Phosphorus ALT Alkaline Phosphatase Total Creatine Kinase CK-MB (CK-2) Rel Index Troponin T Albumin LDL Cholesterol Direct PTH Intact Salicylates Acetaminophen Crossmatch 03/04/19 03/04/19 03/04/19 05:40 11:39 23:20 WBC RBC Hgb Hct MCH MCHC RDW Lymph % (Auto) [place] % (Auto) Eos % (Auto) Lymph # [place] # Eos # Seg Neutrophils % Seg Neutrophils # PT INR D-Dimer POC ABG pH POC ABG pCO2 POC ABG pO2 ABG HCO3 ABG Base Excess ABG Hemoglobin Oxyhemoglobin Sodium Potassium Chloride Carbon Dioxide BUN 34 H Creatinine 2.7 H Glucose 114 H POC Glucose 175 H 151 H Calcium Phosphorus ALT Alkaline Phosphatase Total Creatine Kinase CK-MB (CK-2) Rel Index Troponin T Albumin LDL Cholesterol Direct PTH Intact Salicylates Acetaminophen Crossmatch 03/05/19 03/05/19 03/05/19 05:37 12:08 17:11 WBC RBC Hgb Hct MCH MCHC RDW Lymph % (Auto) [place] % (Auto) Eos % (Auto) Lymph # [place] # Eos # Seg Neutrophils % Seg Neutrophils # PT INR D-Dimer POC ABG pH POC ABG pCO2 POC ABG pO2 ABG HCO3 ABG Base Excess ABG Hemoglobin Oxyhemoglobin Sodium Potassium Chloride Carbon Dioxide BUN Creatinine Glucose POC Glucose 134 H 135 H 135 H Calcium Phosphorus ALT Alkaline Phosphatase Total Creatine Kinase CK-MB (CK-2) Rel Index Troponin T Albumin LDL Cholesterol Direct PTH Intact Salicylates Acetaminophen Crossmatch 03/06/19 03/06/19 03/06/19 00:16 13:05 18:09 WBC RBC Hgb Hct MCH MCHC RDW Lymph % (Auto) [place] % (Auto) Eos % (Auto) Lymph # [place] # Eos # Seg Neutrophils % Seg Neutrophils # PT INR D-Dimer POC ABG pH POC ABG pCO2 POC ABG pO2 ABG HCO3 ABG Base Excess ABG Hemoglobin Oxyhemoglobin Sodium Potassium Chloride Carbon Dioxide BUN Creatinine Glucose POC Glucose 117 H 113 H 131 H Calcium Phosphorus ALT Alkaline Phosphatase Total Creatine Kinase CK-MB (CK-2) Rel Index Troponin T Albumin LDL Cholesterol Direct PTH Intact Salicylates Acetaminophen Crossmatch 03/07/19 03/08/19 03/08/19 05:25 05:33 16:00 WBC RBC 2.44 L Hgb 6.6 L Hct 20.8 L MCH 27 L MCHC RDW 19.2 H Lymph % (Auto) [place] % (Auto) Eos % (Auto) 8.6 H Lymph # 0.8 L [place] # Eos # 0.5 H Seg Neutrophils % 70.7 H Seg Neutrophils # PT INR D-Dimer POC ABG pH POC ABG pCO2 POC ABG pO2 ABG HCO3 ABG Base Excess ABG Hemoglobin Oxyhemoglobin Sodium Potassium Chloride Carbon Dioxide BUN Creatinine Glucose POC Glucose 106 H 108 H Calcium Phosphorus ALT Alkaline Phosphatase Total Creatine Kinase CK-MB (CK-2) Rel Index Troponin T Albumin LDL Cholesterol Direct PTH Intact Salicylates Acetaminophen Crossmatch 03/08/19 03/08/19 03/08/19 16:00 18:38 Unknown WBC RBC Hgb Hct MCH MCHC RDW Lymph % (Auto) [place] % (Auto) Eos % (Auto) Lymph # [place] # Eos # Seg Neutrophils % Seg Neutrophils # PT INR D-Dimer POC ABG pH POC ABG pCO2 POC ABG pO2 ABG HCO3 ABG Base Excess ABG Hemoglobin Oxyhemoglobin Sodium Potassium 5.4 H D Chloride Carbon Dioxide BUN 47 H Creatinine 2.6 H Glucose POC Glucose 123 H Calcium Phosphorus ALT < 5 L Alkaline Phosphatase Total Creatine Kinase CK-MB (CK-2) Rel Index Troponin T Albumin 2.2 L LDL Cholesterol Direct PTH Intact Salicylates Acetaminophen Crossmatch See Detail 03/09/19 03/09/19 03/09/19 10:48 12:28 13:53 WBC RBC 2.85 L Hgb 7.7 L Hct 24.2 L MCH 27 L MCHC RDW 18.7 H Lymph % (Auto) [place] % (Auto) Eos % (Auto) Lymph # [place] # Eos # Seg Neutrophils % Seg Neutrophils # PT INR D-Dimer POC ABG pH POC ABG pCO2 POC ABG pO2 ABG HCO3 30.5 H ABG Base Excess 5.6 H ABG Hemoglobin 8.1 L Oxyhemoglobin 93.8 L Sodium Potassium Chloride Carbon Dioxide BUN Creatinine Glucose POC Glucose 114 H Calcium Phosphorus ALT Alkaline Phosphatase Total Creatine Kinase CK-MB (CK-2) Rel Index Troponin T Albumin LDL Cholesterol Direct PTH Intact Salicylates Acetaminophen Crossmatch 03/09/19 03/09/19 03/10/19 17:58 23:53 12:01 WBC RBC Hgb Hct MCH MCHC RDW Lymph % (Auto) [place] % (Auto) Eos % (Auto) Lymph # [place] # Eos # Seg Neutrophils % Seg Neutrophils # PT INR D-Dimer POC ABG pH POC ABG pCO2 POC ABG pO2 ABG HCO3 ABG Base Excess ABG Hemoglobin Oxyhemoglobin Sodium Potassium Chloride Carbon Dioxide BUN Creatinine Glucose POC Glucose 108 H 128 H 144 H Calcium Phosphorus ALT Alkaline Phosphatase Total Creatine Kinase CK-MB (CK-2) Rel Index Troponin T Albumin LDL Cholesterol Direct PTH Intact Salicylates Acetaminophen Crossmatch 03/10/19 03/11/19 03/11/19 16:50 00:24 05:02 WBC RBC Hgb Hct MCH MCHC RDW Lymph % (Auto) [place] % (Auto) Eos % (Auto) Lymph # [place] # Eos # Seg Neutrophils % Seg Neutrophils # PT INR D-Dimer POC ABG pH POC ABG pCO2 POC ABG pO2 ABG HCO3 ABG Base Excess ABG Hemoglobin Oxyhemoglobin Sodium Potassium Chloride Carbon Dioxide BUN Creatinine Glucose POC Glucose 147 H 123 H 120 H Calcium Phosphorus ALT Alkaline Phosphatase Total Creatine Kinase CK-MB (CK-2) Rel Index Troponin T Albumin LDL Cholesterol Direct PTH Intact Salicylates Acetaminophen Crossmatch 03/11/19 03/11/19 03/11/19 11:56 12:20 18:37 WBC RBC Hgb Hct MCH MCHC RDW Lymph % (Auto) [place] % (Auto) Eos % (Auto) Lymph # [place] # Eos # Seg Neutrophils % Seg Neutrophils # PT INR D-Dimer POC ABG pH POC ABG pCO2 POC ABG pO2 ABG HCO3 ABG Base Excess ABG Hemoglobin Oxyhemoglobin Sodium Potassium 5.2 H Chloride Carbon Dioxide BUN Creatinine Glucose POC Glucose 123 H 125 H Calcium Phosphorus ALT Alkaline Phosphatase Total Creatine Kinase CK-MB (CK-2) Rel Index Troponin T Albumin LDL Cholesterol Direct PTH Intact Salicylates Acetaminophen Crossmatch 03/11/19 03/12/19 03/12/19 22:52 12:04 18:25 WBC RBC Hgb Hct MCH MCHC RDW Lymph % (Auto) [place] % (Auto) Eos % (Auto) Lymph # [place] # Eos # Seg Neutrophils % Seg Neutrophils # PT INR D-Dimer POC ABG pH POC ABG pCO2 POC ABG pO2 ABG HCO3 ABG Base Excess ABG Hemoglobin Oxyhemoglobin Sodium Potassium Chloride Carbon Dioxide BUN Creatinine Glucose POC Glucose 110 H 106 H 118 H Calcium Phosphorus ALT Alkaline Phosphatase Total Creatine Kinase CK-MB (CK-2) Rel Index Troponin T Albumin LDL Cholesterol Direct PTH Intact Salicylates Acetaminophen Crossmatch 03/12/19 03/13/19 03/13/19 23:36 04:38 04:38 WBC RBC 2.95 L Hgb 7.9 L Hct 24.9 L MCH 27 L MCHC RDW 19.9 H Lymph % (Auto) 11.1 L [place] % (Auto) 8.1 H Eos % (Auto) 4.4 H Lymph # 0.9 L [place] # Eos # Seg Neutrophils % 75.4 H Seg Neutrophils # PT INR D-Dimer POC ABG pH POC ABG pCO2 POC ABG pO2 ABG HCO3 ABG Base Excess ABG Hemoglobin Oxyhemoglobin Sodium 136 L Potassium 5.1 H Chloride 93.8 L Carbon Dioxide BUN 48 H Creatinine 2.7 H Glucose 102 H POC Glucose 115 H Calcium Phosphorus ALT < 5 L Alkaline Phosphatase 143 H Total Creatine Kinase CK-MB (CK-2) Rel Index Troponin T Albumin 2.5 L LDL Cholesterol Direct PTH Intact Salicylates Acetaminophen Crossmatch 03/13/19 03/13/19 03/13/19 05:33 13:37 18:03 WBC RBC Hgb Hct MCH MCHC RDW Lymph % (Auto) [place] % (Auto) Eos % (Auto) Lymph # [place] # Eos # Seg Neutrophils % Seg Neutrophils # PT INR D-Dimer POC ABG pH POC ABG pCO2 POC ABG pO2 ABG HCO3 ABG Base Excess ABG Hemoglobin Oxyhemoglobin Sodium Potassium Chloride Carbon Dioxide BUN Creatinine Glucose POC Glucose 140 H 150 H 158 H Calcium Phosphorus ALT Alkaline Phosphatase Total Creatine Kinase CK-MB (CK-2) Rel Index Troponin T Albumin LDL Cholesterol Direct PTH Intact Salicylates Acetaminophen Crossmatch 03/13/19 03/14/19 03/14/19 23:32 05:24 12:20 WBC RBC Hgb Hct MCH MCHC RDW Lymph % (Auto) [place] % (Auto) Eos % (Auto) Lymph # [place] # Eos # Seg Neutrophils % Seg Neutrophils # PT INR D-Dimer POC ABG pH POC ABG pCO2 POC ABG pO2 ABG HCO3 ABG Base Excess ABG Hemoglobin Oxyhemoglobin Sodium Potassium Chloride Carbon Dioxide BUN Creatinine Glucose POC Glucose 162 H 146 H 127 H Calcium Phosphorus ALT Alkaline Phosphatase Total Creatine Kinase CK-MB (CK-2) Rel Index Troponin T Albumin LDL Cholesterol Direct PTH Intact Salicylates Acetaminophen Crossmatch 03/14/19 03/14/19 03/15/19 18:05 23:57 04:38 WBC 12.8 H RBC 3.11 L Hgb 8.1 L Hct 26.5 L MCH 26 L MCHC 31 L RDW 19.7 H Lymph % (Auto) 4.4 L [place] % (Auto) 7.4 H Eos % (Auto) Lymph # 0.6 L [place] # 0.9 H Eos # Seg Neutrophils % 87.3 H Seg Neutrophils # 11.2 H PT INR D-Dimer POC ABG pH POC ABG pCO2 POC ABG pO2 ABG HCO3 ABG Base Excess ABG Hemoglobin Oxyhemoglobin Sodium Potassium Chloride Carbon Dioxide BUN Creatinine Glucose POC Glucose 142 H 155 H Calcium Phosphorus ALT Alkaline Phosphatase Total Creatine Kinase CK-MB (CK-2) Rel Index Troponin T Albumin LDL Cholesterol Direct PTH Intact Salicylates Acetaminophen Crossmatch 03/15/19 03/15/19 03/15/19 04:38 05:31 11:32 WBC RBC Hgb Hct MCH MCHC RDW Lymph % (Auto) [place] % (Auto) Eos % (Auto) Lymph # [place] # Eos # Seg Neutrophils % Seg Neutrophils # PT INR D-Dimer POC ABG pH POC ABG pCO2 POC ABG pO2 ABG HCO3 ABG Base Excess ABG Hemoglobin Oxyhemoglobin Sodium 135 L Potassium Chloride 91.9 L Carbon Dioxide BUN 54 H Creatinine 2.8 H Glucose 128 H POC Glucose 160 H 109 H Calcium 11.1 H Phosphorus ALT Alkaline Phosphatase 161 H Total Creatine Kinase CK-MB (CK-2) Rel Index Troponin T Albumin 2.3 L LDL Cholesterol Direct PTH Intact Salicylates Acetaminophen Crossmatch 03/15/19 03/15/19 03/16/19 18:15 23:41 05:40 WBC RBC Hgb Hct MCH MCHC RDW Lymph % (Auto) [place] % (Auto) Eos % (Auto) Lymph # [place] # Eos # Seg Neutrophils % Seg Neutrophils # PT INR D-Dimer POC ABG pH POC ABG pCO2 POC ABG pO2 ABG HCO3 ABG Base Excess ABG Hemoglobin Oxyhemoglobin Sodium Potassium Chloride Carbon Dioxide BUN Creatinine Glucose POC Glucose 151 H 110 H 163 H Calcium Phosphorus ALT Alkaline Phosphatase Total Creatine Kinase CK-MB (CK-2) Rel Index Troponin T Albumin LDL Cholesterol Direct PTH Intact Salicylates Acetaminophen Crossmatch 03/16/19 03/16/19 03/16/19 11:55 17:04 23:58 WBC RBC Hgb Hct MCH MCHC RDW Lymph % (Auto) [place] % (Auto) Eos % (Auto) Lymph # [place] # Eos # Seg Neutrophils % Seg Neutrophils # PT INR D-Dimer POC ABG pH POC ABG pCO2 POC ABG pO2 ABG HCO3 ABG Base Excess ABG Hemoglobin Oxyhemoglobin Sodium Potassium Chloride Carbon Dioxide BUN Creatinine Glucose POC Glucose 114 H 147 H 192 H Calcium Phosphorus ALT Alkaline Phosphatase Total Creatine Kinase CK-MB (CK-2) Rel Index Troponin T Albumin LDL Cholesterol Direct PTH Intact Salicylates Acetaminophen Crossmatch 03/17/19 03/17/19 03/17/19 05:53 11:17 17:01 WBC RBC Hgb Hct MCH MCHC RDW Lymph % (Auto) [place] % (Auto) Eos % (Auto) Lymph # [place] # Eos # Seg Neutrophils % Seg Neutrophils # PT INR D-Dimer POC ABG pH POC ABG pCO2 POC ABG pO2 ABG HCO3 ABG Base Excess ABG Hemoglobin Oxyhemoglobin Sodium Potassium Chloride Carbon Dioxide BUN Creatinine Glucose POC Glucose 151 H 161 H 152 H Calcium Phosphorus ALT Alkaline Phosphatase Total Creatine Kinase CK-MB (CK-2) Rel Index Troponin T Albumin LDL Cholesterol Direct PTH Intact Salicylates Acetaminophen Crossmatch 03/17/19 03/18/19 03/18/19 21:47 04:44 06:38 WBC RBC Hgb Hct MCH MCHC RDW Lymph % (Auto) [place] % (Auto) Eos % (Auto) Lymph # [place] # Eos # Seg Neutrophils % Seg Neutrophils # PT INR D-Dimer POC ABG pH 7.510 H POC ABG pCO2 POC ABG pO2 164 H ABG HCO3 ABG Base Excess ABG Hemoglobin Oxyhemoglobin Sodium Potassium Chloride Carbon Dioxide BUN Creatinine Glucose POC Glucose 170 H 150 H Calcium Phosphorus ALT Alkaline Phosphatase Total Creatine Kinase CK-MB (CK-2) Rel Index Troponin T Albumin LDL Cholesterol Direct PTH Intact Salicylates Acetaminophen Crossmatch
--- NOTE | 2019-03-18 11:54 | Progress Note ---
Assessment and Plan Assessment and plan: Patient is a 63-year-old -[place] man from [facility] with a plethora of co-morbidities including blindness, CVA, CHF, PPM/ICD, loop recorder since 2012 that is MRI compatible, IDDM type 2, sepsis left foot ulcer, afib, ESRD with complications on HD TTS, hypertension, AOCD and GERD who presented to the ED with hypotensive after intubation in the emergency room. diagnosed with fluid overload, pleural effusion. Patient has had recurrent admission in the hospital for similar reason and was recently discharged from the hospital following treatment of Severe Sepsis due to Necrotizing Unstagable sacral decubitus ulcer with ostemomylitis, has received multiple courses of broad spectrum abx. Acute hypoxic respiratory failure, status post intubation and ventilatory support --Acute respiratory failure requiring mechanical ventilator: Acute respiratory failure on mechanical ventilator >96 hrs - Currently on trach/peg placed on 03/03 off vent since 03/09, cont oxygen supplement, improving, on t piece, nebulizers, continue current management, again as tolerated and extubate, pulmonary critical following acute on chronc systolic CHF/ Acute pulmonary edema, improved with UF Dilated CMP, EF 35-40% Continue diuresis Acute metabolic encephalopathy, resolved, has baseline Dementia ESRD on hemodialysis nephrology following Bilateral pleural effusions improved with HD Permanent atrial fibrillation and flutter and hypercoaguable state Not on anticoagulation because of anemia thrombocytopenia rate control meds optimizeds Diabetes mellitus type 2 SSI NSTEMI type 2 Cardiology following Schizophrenia Legally blind supportive care hypertension Monitor BP Hypokalemia replaced Pulmonary hypertension Dysphagia s/p PEG tube Sacral decub ulcer Wound Nurse consulted Severe malnutrition /hypoalbuminemia with FTT: 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, 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/19 decubitus ulcer s/ post colostomy Left 5th finger, stage 4 pressure ulcer Left heel, deep tissue injury Sacrum, stage 4 pressure ulcer POA Continue wound care History of sacral osteomyelitis and LE ulcers Completed Antibiotics Place on contact isolation for ESBL Klebsiella pneumonia on wound culture 01/02/19 Schizophrenia h/o Peripheral neuropathy: Continue gabapentin Pulm HTN Anemia of chronic disease sp 1 unit of prbc , stable RUL atelectasis, probably mucous plugging DVT prophylaxis Lovenox Full code status poor prognosis DIspo; unable to be placed in ltac, unable to find any NH to take patient. REcommend inpatient hospice, but family is not agreeable at this time. Plan another family meeting and ethic consult The high probability of a clinically significant, sudden or life threatening deterioration of the [pulmonary, neuro, renal] system(s) required my full and direct attention, intervention and personal management. The aggregate critical care time was [35] minutes. This time is in addition to time spent performing reported procedures but includes the following: [x] Data Review and interpretation [x] Patient assessment and monitoring of vital signs [] Documentation [x] Medication orders and management History Interval history: Patient seen and examined medical records reviewed Patient went into acute respiratory failure last night, requiring intubation and mechanical ventilation Transferred the patient to ICU, receiving hemodialysis at the bedside Orally intubated on ventilatory support Vital signs noted Hospitalist Physical - Constitutional Vitals: Temp Pulse Resp BP Pulse Ox 97.8 F 114 H 22 101/58 100 03/18/19 08:00 03/18/19 11:21 03/18/19 11:00 03/18/19 11:21 03/18/19 11:21 General appearance: Present: no acute distress, well-nourished, other (tracheostomy on vent) - EENT Eyes: Present: PERRL, EOM intact - Neck Neck: Present: supple - Respiratory Respiratory effort: normal Respiratory: bilateral: diminished, rhonchi, negative: rales, wheezing - Cardiovascular Rhythm: regular Heart Sounds: Present: S1 & S2 - Extremities Extremities: no ischemia Extremity abnormal: edema - Abdominal General gastrointestinal: soft, non-tender, non-distended, normal bowel sounds - Integumentary Integumentary: Present: clear, warm - Psychiatric Psychiatric: other (on vent) - Neurologic Neurologic: other (on vent) Results - Labs CBC & Chem 7: 03/15/19 04:38 03/15/19 04:38 Labs: Laboratory Last Values WBC 12.8 K/mm3 (4.5-11.0) H 03/15/19 04:38 RBC 3.11 M/mm3 (3.65-5.03) L 03/15/19 04:38 Hgb 8.1 gm/dl (11.8-15.2) L 03/15/19 04:38 Hct 26.5 % (35.5-45.6) L 03/15/19 04:38 MCV 85 fl (84-94) 03/15/19 04:38 MCH 26 pg (28-32) L 03/15/19 04:38 MCHC 31 % (32-34) L 03/15/19 04:38 RDW 19.7 % (13.2-15.2) H 03/15/19 04:38 Plt Count 322 K/mm3 (140-440) 03/15/19 04:38 Lymph % (Auto) 4.4 % (13.4-35.0) L 03/15/19 04:38 [place] % (Auto) 7.4 % (0.0-7.3) H 03/15/19 04:38 Eos % (Auto) 0.3 % (0.0-4.3) 03/15/19 04:38 Baso % (Auto) 0.6 % (0.0-1.8) 03/15/19 04:38 Lymph # 0.6 K/mm3 (1.2-5.4) L 03/15/19 04:38 [place] # 0.9 K/mm3 (0.0-0.8) H 03/15/19 04:38 Eos # 0.0 K/mm3 (0.0-0.4) 03/15/19 04:38 Baso # 0.1 K/mm3 (0.0-0.1) 03/15/19 04:38 Seg Neutrophils % 87.3 % (40.0-70.0) H 03/15/19 04:38 Seg Neutrophils # 11.2 K/mm3 (1.8-7.7) H 03/15/19 04:38 PT 16.3 Sec. (12.2-14.9) H 03/01/19 09:39 INR 1.35 (0.87-1.13) H 03/01/19 09:39 APTT 33.7 Sec. (24.2-36.6) 02/21/19 18:30 2987.82 ng/mlDDU (0-234) H 02/22/19 05:54 POC ABG pH 7.510 (7.35-7.45) H 03/18/19 06:38 ABG pH 7.435 pH Units (7.350-7.450) 03/09/19 13:53 POC ABG pCO2 38.9 (35-45) 03/18/19 06:38 ABG pCO2 46.5 mm Hg 03/09/19 13:53 POC ABG pO2 164 (80-105) H 03/18/19 06:38 ABG pO2 80.8 mm Hg (80.0-90.0) 03/09/19 13:53 POC ABG HCO3 31.0 (22-26 mml/L) 03/18/19 06:38 ABG HCO3 30.5 mmol/L (20.0-26.0) H 03/09/19 13:53 POC ABG Total CO2 32 (23-27mmol/L) 03/18/19 06:38 POC ABG O2 Sat 100 03/18/19 06:38 ABG O2 Saturation 96.5 % (95.0-99.0) 03/09/19 13:53 ABG O2 Content 10.8 (0.0-44) 03/09/19 13:53 POC ABG Base Excess 8 ((-2) - (+3)mmol/L) 03/18/19 06:38 ABG Base Excess 5.6 mmol/L (-2.0-3.0) H 03/09/19 13:53 ABG Hemoglobin 8.1 gm/dl (14.0-18.0) L 03/09/19 13:53 ABG Carboxyhemoglobin 2.4 % (0.0-5.0) 03/09/19 13:53 ABG Methemoglobin 0.4 % (0.0-1.5) 03/09/19 13:53 93.8 % (95.0-99.0) L 03/09/19 13:53 50 % 03/18/19 06:38 Sodium 135 mmol/L (137-145) L 03/15/19 04:38 Potassium 5.0 mmol/L (3.6-5.0) 03/15/19 04:38 Chloride 91.9 mmol/L (98-107) L 03/15/19 04:38 Carbon Dioxide 29 mmol/L (22-30) 03/15/19 04:38 19 mmol/L 03/15/19 04:38 BUN 54 mg/dL (9-20) H 03/15/19 04:38 2.8 mg/dL (0.8-1.5) H 03/15/19 04:38 Estimated GFR 28 ml/min 03/15/19 04:38 19 % 03/15/19 04:38 Glucose 128 mg/dL (75-100) H 03/15/19 04:38 POC Glucose 150 (70-105) H 03/18/19 04:44 Lactic Acid 1.00 mmol/L (0.7-2.0) 02/21/19 20:58 Calcium 11.1 mg/dL (8.4-10.2) H 03/15/19 04:38 Phosphorus 3.10 mg/dL (2.5-4.5) 03/15/19 04:38 Magnesium 2.30 mg/dL (1.7-2.3) 03/15/19 04:38 0.30 mg/dL (0.1-1.2) 03/15/19 04:38 AST 14 units/L (5-40) 03/15/19 04:38 ALT 9 units/L (7-56) 03/15/19 04:38 161 units/L (35-129) H 03/15/19 04:38 28.0 umol/L (25-60) 02/21/19 20:04 64 units/L (55-170) 02/22/19 03:42 CK-MB (CK-2) 3.7 ng/mL (0.0-4.0) 02/22/19 03:42 CK-MB (CK-2) Rel Index 5.7 (0-4) H 02/22/19 03:42 0.193 ng/mL (0.00-0.029) H* 02/22/19 03:42 7.4 g/dL (6.3-8.2) 03/15/19 04:38 2.3 g/dL (3.9-5) L 03/15/19 04:38 0.5 % 03/15/19 04:38 Triglycerides 51 mg/dL (2-149) 02/21/19 18:30 Cholesterol 82 mg/dL (50-199) 02/21/19 18:30 36 mg/dL (50-130) L 02/21/19 18:30 40 mg/dL (40-59) 02/21/19 18:30 2.05 % 02/21/19 18:30 TSH 2.760 mlU/mL (0.270-4.200) 02/21/19 20:04 PTH Intact 267.6 pg/mL (15-65) H 03/02/19 05:15 Salicylates < 0.3 mg/dL (2.8-20.0) L 02/21/19 20:04 Acetaminophen < 5.0 ug/mL (10.0-30.0) L 02/21/19 20:04 Hepatitis A IgM Ab Non-reactive (NonReactive) 02/23/19 11:20 Hep Bs Antigen Non-reactive (Negative) 02/23/19 11:20 Hep B Core IgM Ab Non-reactive (NonReactive) 02/23/19 11:20 Non-reactive (NonReactive) 02/23/19 11:20 Blood Type O POSITIVE 03/08/19 Unknown Antibody Screen Negative 03/08/19 Unknown Crossmatch See Detail 03/08/19 Unknown Active Medications - Current Medications Current Medications: Generic Name Dose Route Start Last Admin Trade Name Freq PRN Reason Stop Dose Admin Acetaminophen 650 mg 02/21/19 22:19 03/18/19 04:53 Tylenol PO 650 mg Q4H PRN Administration Pain MILD(1-3)/Fever >100.5/HILL Albuterol/Ipratropium 1 ampul 02/24/19 20:00 03/18/19 08:38 Duoneb *Not For Prn Use* IH 1 ampul TIDRT SANCHEZ Administration Lipase/Protease/Amylase 1 each 03/05/19 14:04 Pancrejewel Barrientos 10,500 Unit FEEDTUBE PRN PRN For Clogged Feeding Tube Dextrose 50 ml 02/21/19 22:22 03/03/19 17:37 D50w (25gm) Syringe IV 50 ml PRN PRN Administration Hypoglycemia Famotidine 20 mg 02/23/19 10:00 03/18/19 09:45 Pepcid PO 20 mg DAILY SANCHEZ Administration Heparin Sodium (Porcine) 5,000 unit 03/04/19 22:00 03/18/19 09:44 Heparin SUB-Q 5,000 unit Q12HR SANCHEZ Administration Hydrophilic Ointment 1 applic 02/21/19 18:24 03/05/19 08:16 Vaseline Lip Therapy TP 1 applic Q2HR PRN Administration Dry Lips Sodium Chloride 100 mls @ 999 mls/hr 02/26/19 09:00 Nacl 0.9% IV UMA PRN Hypotension Cefepime HCl 2 gm in 100 mls @ 200 mls/hr 03/18/19 10:00 03/18/19 09:45 Maxipime/Ns 2 Gm/100 Ml IV 200 mls/hr Q24HR SANCHEZ Administration Protocol Insulin Human Regular 0 units 02/26/19 12:00 03/18/19 09:25 Humulin R SUB-Q Not Given Q6HR [facility] Protocol Metoprolol Tartrate 2.5 mg 02/28/19 12:06 03/15/19 05:15 Lopressor IV 2.5 mg Q4HR PRN Administration Tachycardia Metoprolol Tartrate 25 mg 03/02/19 14:00 03/18/19 09:45 Lopressor PO 25 mg TID SANCHEZ Administration Multi-Ingred Cream/Lotion/Oil/Oint 1 applic 02/21/19 18:24 Artificial Tears Ophth Oint OU Q4HR PRN Dry Eye(s) Ondansetron HCl 4 mg 02/21/19 22:19 03/12/19 21:39 Zofran IV 4 mg Q8H PRN Administration Nausea And Vomiting Risperidone 1 mg 02/25/19 13:00 03/18/19 09:46 Risperdal PO 1 mg DAILY SANCHEZ Administration Scopolamine 1 each 03/13/19 04:00 03/16/19 03:41 Transderm-Scop TD 1 each Q3D SANCHEZ Administration Sertraline HCl 100 mg 02/25/19 13:00 03/18/19 09:45 Zoloft PO 100 mg DAILY SANCHEZ Administration Simple Syrup 15 ml 03/05/19 14:04 Simple Syrup FEEDTUBE PRN PRN Hypoglycemia Simple Syrup 30 ml 03/05/19 14:04 Simple Syrup FEEDTUBE PRN PRN Hypoglycemia Sodium Bicarbonate 325 mg 03/05/19 14:04 Sodium Bicarbonate FEEDTUBE PRN PRN For Clogged Feeding Tube Sodium Chloride 10 ml 02/22/19 10:00 03/17/19 21:58 Sodium Chloride Flush Syringe 10 Ml IV 10 ml BID SANCHEZ Administration Sodium Chloride 10 ml 02/21/19 22:19 02/24/19 22:00 Sodium Chloride Flush Syringe 10 Ml IV 10 ml PRN PRN Administration LINE FLUSH Tramadol HCl 50 mg 03/05/19 10:08 03/18/19 04:38 Ultram PO 50 mg Q6H PRN Administration Pain, Moderate (4-6) Nutrition/Malnutrition Assess - Dietary Evaluation Nutrition/Malnutrition Findings: Nutrition Notes Start: 02/22/19 12:51 Freq: Status: Active Protocol: Document 03/13/19 13:06 LM (Rec: 03/13/19 13:16 LM [id number]) Nutrition Notes Initial or Follow up Reassessment Current Diagnosis Diabetes,Hypertension Other Pertinent Diagnosis Sacral PU, ESRD on HD (T/Thurs /Sat), Schizophrenia,Blind in L eye,S/P trach Current Diet Vital AF 1.2 at 70 ml/hr Labs/Tests Na 136 K 5.1 BUN 48 Cr 2.7 BG 102 Pertinent Medications Humulin Height 5 ft 10 in Weight 88.7 kg [place] Body Weight (kg) 75.45 BMI 28.0 Subjective/Other Information Vital AF running at goal (70 ml/hr) and pt is tolerating TF . Percent of energy/protein needs met: 100%/100% Burn Absent Trauma Absent #2 Nutrition Diagnosis Increased nutrient needs ( specify in comment below) Diagnosis Progress(for reassessment Continues documentation) #1 Nutrition Diagnosis Inadequate oral intake Diagnosis Progress(for reassessment Continues documentation) Is patient on ventilator? Yes Is Patient Ambulatory and/or Out of Bed No REE-([facility]-confined to bed) 2023.976 Kcal/Kg value to use for calculation 18 Approximate Energy Requirements Using 1597 kcal/Kg Calculation Used for Recommendations Kcal/kg Additional Notes Protein Needs: 106-177g (1.2- 2g/kg) Fluid Needs: 1 ml/kcal Nutrition Intervention Nutrition Support: Vital 1.2 at 70 ml/hr Water flush of 100 mls q 4 hrs Kcal 2,016 Protein (gm) 126 Fluid (mL) 1,362 Add Supplement/Snack (indicate name/kcal Abhilash BID /protein ) Provides kCal: 190 Provides Protein (gm) 5 Goal #1 TF tolerance Goal #2 Continue to meet at least 80% of calorie and protein needs via TF Anticipated Discharge Needs: Unable to determine at this time Follow-Up By: 03/19/19 Additional Comments F/U for TF tolerance
[2019-03-18] MEDS ORDERED: NORepinephrine 8 MG in SODIUM CHLORIDE 0.9% 250ML 242 ML IV SCH (13:00)
--- NOTE | 2019-03-18 13:53 | Progress Note ---
Assessment and Plan Cultures: 03/14 Sputum Cx: GNR pending finalization 03/14 BCx: NGTD A/P: 63 yo M PMHx CVA, CHF, AICD, DM2, L foot ulcer, ESRD on HD, HTN, afib admitted with respiratory failure and fluid overload 1. Sepsis secondary to pneumonia - Cultures with GNR pending finalization. These can often be colonizers of the trach tube, but given his rising leukocytosis and new fevers would treat it as real. Will start cefepime 2g q24h as renal dosing. XR changes can often be delayed from other findings. New infiltrate likely related to GNR. At risk for resistant bacteria, will continue to follow cultures 2. Hypoxic respiratory failure - 2/2 fluid overload. Improving 3. DM2 4. L foot ulcer 5. Hx of sacral ulcer s/p extensive treatment - treated with 6 weeks of vancomy jl and meropenem earlier this year 6. ESRD on HD 7. HTN 8. Afib Recs: - Continue cefepime 2g q24h - follow up sputum culture finalization - follow up blood cultures - ordered CBC w/ diff for tomorrow. Thank you for the consult, we will continue to follow. Sherman Shirley MD [facility] ([facility]) M: [phone] O: [phone] F: [phone] Subjective Date of service: 03/18/19 Principal diagnosis: respiratory failure Interval history: Trach and ventilator. Febrile to 101.6. CXR with new L pneumonia. Objective - Exam Narrative Exam: Constitutional: Alert, cooperative. No acute distress Neck: Supple, no meningeal signs. Trach in place. Oral: dentition fair, no thrush Cardiovascular: S1, S2 normal. Respiratory: Good air entry, clear to auscultation bilaterally GI: Soft, non-tender; bowel sounds normal. No peritoneal signs. Musculoskeletal: No pedal edema, no cyanosis. Skin: No rash or abscess Neurological: Awake, trached. No gross abnormality - Constitutional Vitals: Vital Signs Temp Pulse Resp BP Pulse Ox 97.9 F 102 H 18 95/54 99 03/18/19 12:00 03/18/19 13:30 03/18/19 13:30 03/18/19 13:30 03/18/19 13:30 Temperature -Last 24 Hours Temperature 97.9 F Temperature 97.8 F Temperature 101.6 F Temperature 99.1 F Temperature 97.6 F Temperature 99.3 F - Labs CBC & Chem 7: 03/15/19 04:38 03/15/19 04:38 Labs: Abnormal lab results 03/17/19 03/17/19 03/17/19 Range/Units 11:17 17:01 21:47 POC ABG pH (7.35-7.45) POC ABG pO2 (80-105) POC Glucose 161 H 152 H 170 H (70-105) 03/18/19 03/18/19 Range/Units 04:44 06:38 POC ABG pH 7.510 H (7.35-7.45) POC ABG pO2 164 H (80-105) POC Glucose 150 H (70-105)
--- NOTE | 2019-03-18 16:14 | Progress Note ---
Assessment and Plan - Patient Problems (1) ESRD (end stage renal disease) on dialysis Current Visit: Yes Status: Chronic Plan to address problem: End stage renal disease : - access: Left arm AVG Continue hemodialysis Saturday (2) Diabetes mellitus, insulin dependent (IDDM), uncontrolled Current Visit: No Status: Acute Plan to address problem: DM type II uncontrolled Monitor Fingersticks (3) Anemia in chronic kidney disease, on chronic dialysis Current Visit: Yes Status: Acute Plan to address problem: Anemia of chronic kidney disease hemoglobin 8.2 g. We'll give Epogen Monitor CBC (4) Hypertension Current Visit: Yes Status: Acute Plan to address problem: Hypertension controlled Ensure medications Monitor blood pressure Subjective Principal diagnosis: respiratory failure Interval history: 63-year-old gentleman with medical history significant for end-stage renal dise ase on hemodialysis via a left arm AV graft is currently in the [facility] for plan for dialysis today Patient is poorly responsive review of systems unobtainable tracheal stain with gram positive rods. now with trache on ventilator. Objective - Vital Signs Vital signs: Vital Signs - 12hr 03/18/19 03/18/19 03/18/19 05:00 05:54 06:01 Temperature Pulse Rate 132 H 137 H 140 H Pulse Rate [ Anterior Bilateral Throughout] Pulse Rate [ From Monitor] Respiratory 24 28 H Rate Respiratory Rate [Anterior Bilateral Throughout] Blood Pressure 121/58 98/57 98/52 O2 Sat by Pulse 99 100 100 Oximetry O2 Sat by Pulse Oximetry [ Assessment] 03/18/19 03/18/19 03/18/19 07:01 08:00 08:32 Temperature 97.8 F Pulse Rate 120 H 118 H 110 H Pulse Rate [ Anterior Bilateral Throughout] Pulse Rate [ 105 H From Monitor] Respiratory 24 18 Rate Respiratory Rate [Anterior Bilateral Throughout] Blood Pressure 85/49 93/63 93/63 O2 Sat by Pulse 98 99 100 Oximetry O2 Sat by Pulse Oximetry [ Assessment] 03/18/19 03/18/19 03/18/19 08:35 08:38 09:00 Temperature Pulse Rate 110 H 115 H Pulse Rate [ 116 H Anterior Bilateral Throughout] Pulse Rate [ From Monitor] Respiratory 23 23 Rate Respiratory 22 Rate [Anterior Bilateral Throughout] Blood Pressure 93/63 96/51 O2 Sat by Pulse 99 99 Oximetry O2 Sat by Pulse Oximetry [ Assessment] 03/18/19 03/18/19 03/18/19 09:45 10:00 11:00 Temperature Pulse Rate 113 H 108 H 99 H Pulse Rate [ Anterior Bilateral Throughout] Pulse Rate [ From Monitor] Respiratory 20 22 Rate Respiratory Rate [Anterior Bilateral Throughout] Blood Pressure 96/51 89/47 101/58 O2 Sat by Pulse 100 98 Oximetry O2 Sat by Pulse Oximetry [ Assessment] 03/18/19 03/18/19 03/18/19 11:19 11:21 12:00 Temperature 97.9 F Pulse Rate 114 H 111 H Pulse Rate [ Anterior Bilateral Throughout] Pulse Rate [ 103 H From Monitor] Respiratory 16 Rate Respiratory Rate [Anterior Bilateral Throughout] Blood Pressure 101/58 86/54 O2 Sat by Pulse 100 95 Oximetry O2 Sat by Pulse 100 Oximetry [ Assessment] 03/18/19 03/18/19 03/18/19 12:30 12:45 13:00 Temperature 97.9 F Pulse Rate 99 H 106 H 96 H Pulse Rate [ Anterior Bilateral Throughout] Pulse Rate [ From Monitor] Respiratory 18 15 Rate Respiratory Rate [Anterior Bilateral Throughout] Blood Pressure 85/54 96/54 92/54 O2 Sat by Pulse 98 Oximetry O2 Sat by Pulse Oximetry [ Assessment] 03/18/19 03/18/19 03/18/19 13:15 13:30 13:45 Temperature Pulse Rate 102 H 96 H 98 H Pulse Rate [ Anterior Bilateral Throughout] Pulse Rate [ From Monitor] Respiratory 22 18 19 Rate Respiratory Rate [Anterior Bilateral Throughout] Blood Pressure 88/50 95/54 91/55 O2 Sat by Pulse 98 99 100 Oximetry O2 Sat by Pulse Oximetry [ Assessment] 03/18/19 03/18/19 03/18/19 14:00 14:15 14:30 Temperature Pulse Rate 92 H 102 H 93 H Pulse Rate [ Anterior Bilateral Throughout] Pulse Rate [ From Monitor] Respiratory 19 16 29 H Rate Respiratory Rate [Anterior Bilateral Throughout] Blood Pressure 84/50 96/57 109/60 O2 Sat by Pulse 100 100 100 Oximetry O2 Sat by Pulse Oximetry [ Assessment] 03/18/19 03/18/19 03/18/19 14:45 15:00 15:03 Temperature Pulse Rate 98 H 95 H 101 H Pulse Rate [ Anterior Bilateral Throughout] Pulse Rate [ From Monitor] Respiratory 19 20 Rate Respiratory Rate [Anterior Bilateral Throughout] Blood Pressure 114/60 117/65 80/48 O2 Sat by Pulse 100 100 Oximetry O2 Sat by Pulse Oximetry [ Assessment] 03/18/19 03/18/19 03/18/19 15:06 15:15 15:38 Temperature Pulse Rate 96 H 98 H 102 H Pulse Rate [ Anterior Bilateral Throughout] Pulse Rate [ From Monitor] Respiratory 19 Rate Respiratory Rate [Anterior Bilateral Throughout] Blood Pressure 117/65 117/65 105/71 O2 Sat by Pulse 100 Oximetry O2 Sat by Pulse Oximetry [ Assessment] - General Appearance General appearance: well-developed, well-nourished EENT: ATNC, PERRL, mucous membranes moist Neck: no JVD, other (tracheostomy on ventilator. ) Respiratory: Present: Clear to Ascultation, Decreased Breath Sounds Cardiology: regular, S1S2 Gastrointestinal: normal, normoactive bowel sounds Integumentary: no rash Neurologic: alert and oriented x3, CN 3-12 intact Psychiatric: depressed - Lab 03/15/19 04:38 03/15/19 04:38 Most recent lab results ABG pH 7.435 pH Units (7.350-7.450) 03/09/19 13:53 ABG pCO2 46.5 mm Hg 03/09/19 13:53 ABG pO2 80.8 mm Hg (80.0-90.0) 03/09/19 13:53 ABG HCO3 30.5 mmol/L (20.0-26.0) H 03/09/19 13:53 ABG O2 Saturation 96.5 % (95.0-99.0) 03/09/19 13:53 Calcium 11.1 mg/dL (8.4-10.2) H 03/15/19 04:38 Phosphorus 3.10 mg/dL (2.5-4.5) 03/15/19 04:38 Magnesium 2.30 mg/dL (1.7-2.3) 03/15/19 04:38 - Imaging Chest x-ray: image reviewed (I reviewed CXR without overt edema. ) Medications & Allergies - Medications Allergies/Adverse Reactions: Allergies haloperidol [From Haldol] Adverse Reaction (Verified 03/13/18 12:10) Unknown haloperidol lactate [From Haldol] Adverse Reaction (Verified 03/13/18 12:10) Unknown Home Medications: Home Medications Medication Instructions Recorded Confirmed Last Taken Type risperiDONE [RisperDAL] 1 mg PO QAM 03/13/18 02/21/19 Unknown History Sertraline [Zoloft] 100 mg PO QDAY 08/26/18 02/21/19 Unknown History Polyethylene Glycol 3350 [Miralax 17 gm PO QDAY #30 packet 11/05/18 02/21/19 Unknown Rx 3350] Aspirin EC [Halfprin EC] 81 mg PO DAILY #30 11/19/18 02/21/19 Unknown Rx Docusate Sodium [Colace CAP] 100 mg PO BID #60 11/19/18 02/21/19 Unknown Rx Folic Acid [Folvite] 1 mg PO DAILY #30 tab 11/19/18 02/21/19 Unknown Rx Famotidine [Pepcid] 20 mg PO DAILY tablet 12/08/18 02/21/19 Unknown Rx Gabapentin [Neurontin] 100 mg PO QHS capsule 12/08/18 02/21/19 Unknown Rx Metoprolol [Lopressor TAB] 50 mg PO BID 30 Days tablet 12/08/18 02/21/19 Unknown Rx Sevelamer Carbonate [Renvela] 800 mg PO TIDWM tablet 12/08/18 02/21/19 Unknown Rx hydrALAZINE [Apresoline TAB] 100 mg PO Q8HR #120 tablet 12/08/18 02/21/19 Unknown Rx Acetaminophen [Acetaminophen TAB] 650 mg PO Q12H PRN 12/15/18 02/21/19 Unknown History Glucagon,Human Recombinant 1 mg IJ Q15MIN PRN 12/15/18 02/21/19 Unknown History [Glucagon Emergency Kit] Insulin Aspart [NovoLOG 100 See Protocol SQ QWEEK 12/15/18 02/21/19 Unknown History UNITS/ML VIAL] Active Medications: Generic Name Dose Route Start Last Admin Trade Name Freq PRN Reason Stop Dose Admin Acetaminophen 650 mg 02/21/19 22:19 03/18/19 04:53 Tylenol PO 650 mg Q4H PRN Administration Pain MILD(1-3)/Fever >100.5/HILL Albuterol/Ipratropium 1 ampul 02/24/19 20:00 03/18/19 15:19 Duoneb *Not For Prn Use* IH Not Given TIDRT SANCHEZ Lipase/Protease/Amylase 1 each 03/05/19 14:04 Pancrejewel Barrientos 10,500 Unit FEEDTUBE PRN PRN For Clogged Feeding Tube Dextrose 50 ml 02/21/19 22:22 03/03/19 17:37 D50w (25gm) Syringe IV 50 ml PRN PRN Administration Hypoglycemia Famotidine 20 mg 02/23/19 10:00 03/18/19 09:45 Pepcid PO 20 mg DAILY SANCHEZ Administration Heparin Sodium (Porcine) 5,000 unit 03/04/19 22:00 03/18/19 09:44 Heparin SUB-Q 5,000 unit Q12HR SANCHEZ Administration Hydrophilic Ointment 1 applic 02/21/19 18:24 03/05/19 08:16 Vaseline Lip Therapy TP 1 applic Q2HR PRN Administration Dry Lips Sodium Chloride 100 mls @ 999 mls/hr 02/26/19 09:00 Nacl 0.9% IV UMA PRN Hypotension Cefepime HCl 2 gm in 100 mls @ 200 mls/hr 03/18/19 10:00 03/18/19 09:45 Maxipime/Ns 2 Gm/100 Ml IV 200 mls/hr Q24HR SANCHEZ Administration Protocol Norepinephrine 8 mg/ Sodium 250 mls @ 3.75 mls/hr 03/18/19 13:00 03/18/19 14:25 Chloride IV 4 mcg/min TITR SANCHEZ 7.5 mls/hr Titration Protocol 2 MCG/MIN Insulin Human Regular 0 units 02/26/19 12:00 03/18/19 12:50 Humulin R SUB-Q Not Given Q6HR [facility] Protocol Metoprolol Tartrate 2.5 mg 02/28/19 12:06 03/15/19 05:15 Lopressor IV 2.5 mg Q4HR PRN Administration Tachycardia Metoprolol Tartrate 25 mg 03/02/19 14:00 03/18/19 15:03 Lopressor PO Not Given TID [facility] Multi-Ingred Cream/Lotion/Oil/Oint 1 applic 02/21/19 18:24 Artificial Tears Ophth Oint OU Q4HR PRN Dry Eye(s) Ondansetron HCl 4 mg 02/21/19 22:19 03/12/19 21:39 Zofran IV 4 mg Q8H PRN Administration Nausea And Vomiting Risperidone 1 mg 02/25/19 13:00 03/18/19 09:46 Risperdal PO 1 mg DAILY SANCHEZ Administration Scopolamine 1 each 03/13/19 04:00 08/26/19 03:41 Transderm-Scop TD 1 each Q3D SANCHEZ Administration Sertraline HCl 100 mg 02/25/19 13:00 03/18/19 09:45 Zoloft PO 100 mg DAILY SANCHEZ Administration Simple Syrup 15 ml 03/05/19 14:04 Simple Syrup FEEDTUBE PRN PRN Hypoglycemia Simple Syrup 30 ml 03/05/19 14:04 Simple Syrup FEEDTUBE PRN PRN Hypoglycemia Sodium Bicarbonate 325 mg 03/05/19 14:04 Sodium Bicarbonate FEEDTUBE PRN PRN For Clogged Feeding Tube Sodium Chloride 10 ml 02/22/19 10:00 03/17/19 21:58 Sodium Chloride Flush Syringe 10 Ml IV 10 ml BID SANCHEZ Administration Sodium Chloride 10 ml 02/21/19 22:19 02/24/19 22:00 Sodium Chloride Flush Syringe 10 Ml IV 10 ml PRN PRN Administration LINE FLUSH Tramadol HCl 50 mg 03/05/19 10:08 03/18/19 04:38 Ultram PO 50 mg Q6H PRN Administration Pain, Moderate (4-6)
[2019-03-19 01:20] LABS: Basophils # (Auto) 0.1 K/mm3 (0.0-0.1); Basophils % (Auto) 0.4 % (0.0-1.8); Eosinophils # (Auto) 0.2 K/mm3 (0.0-0.4); Eosinophils % (Auto) 1.4 % (0.0-4.3); Hematocrit 21.6 % (35.5-45.6); Hemoglobin 6.5 gm/dl (11.8-15.2); Lymphocytes # (Auto) 0.9 K/mm3 (1.2-5.4); Mean Corpuscular HGB Conc 30 % (32-34); Mean Corpuscular Volume 86 fl (84-94); Monocytes % (Auto) 6.7 % (0.0-7.3); Platelet Count 304 K/mm3 (140-440); Red Blood Count 2.51 M/mm3 (3.65-5.03); Red Cell Distribution Width 19.8 % (13.2-15.2)
[2019-03-19] MEDS ORDERED: SODIUM CHLORIDE 0.9% 500 ML 500 ML IV ONE ×2 (02:40→10:47)
--- NOTE | 2019-03-19 02:59 | XRay Report ---
CHEST 1 VIEW INDICATION: follow up respiratory failure. COMPARISON: Previous day. FINDINGS: Support devices: Unchanged. Heart: Stable cardiomegaly. Lungs/Pleura: Basilar effusions and left-sided pneumonia remain. Edema is mildly increased. Overall l roger volumes have diminished. Additional findings: None. IMPRESSION: Mild interval worsening. Signer Name: Paco Nguyen MD Signed: 03/19/2019 2:54 AM Workstation Name: [id number]
[2019-03-19] MEDS: SCOPOLAMINE TRANSDERMAL PATCH 72 HR TD SCH (04:18)
[2019-03-19 04:56] LABS: ABG Base Excess 5.8 mmol/L (-2.0-3.0); ABG HCO3 30.7 mmol/L (20.0-26.0); ABG Methemoglobin 0.4 % (0.0-1.5); ABG PH 7.424 pH Units (7.350-7.450); ABG PO2 78.3 mm Hg (80.0-90.0)
[2019-03-19] MEDS: INSULIN REGULAR, HUMAN 100 UNITS/1 ML SUB-Q SCH ×3 (06:07→18:14)
[2019-03-19] MEDS: IPRATROPIUM/ALBUTEROL SULFATE 3 ML AMPUL.NEB IH SCH ×3 (09:01→19:34)
[2019-03-19] MEDS: METOPROLOL TARTRATE 25 MG TAB PO SCH (09:30)
[2019-03-19] MEDS: FAMOTIDINE 20 MG TAB PO SCH (10:34)
[2019-03-19] MEDS: SERTRALINE 100 MG TAB PO SCH (10:34)
[2019-03-19] MEDS: risperiDONE 1 MG TAB PO SCH (10:34)
[2019-03-19] MEDS: HEPARIN 5,000 UNIT/1 ML VIAL SUB-Q SCH ×2 (10:35→21:39)
[2019-03-19] MEDS: CEFEPIME/NS 2 GM/100 ML 2 GM/100 ML BAG IV SCH (10:38)
--- NOTE | 2019-03-19 12:14 | Progress Note ---
Assessment and Plan 63 y/o male with multiple medical issues admitted with altered mental status, acute respiratory failure requiring mechanical ventilation 1. Multi resistant acinetobacter found in sputum. ID aware. Plan in place. Likely secondary from multiple hospital stays with multiple courses of abx. 2. Placement on hold now given acute clinical change 3. If patient spikes another temp, will need repeat blood cultures. Does not make urine. 4. No need for bronch. If tolerates PSV and goes to T-piece, hold on repeat CXR. CCT 31 minutes. Subjective Date of service: 03/19/19 Principal diagnosis: respiratory failure Interval history: No acute events. More awake today. Tolerating PSV trial today. Levophed is off. Had HD on yesterday. Objective Vital Signs - 12hr 03/19/19 03/19/19 03/19/19 00:13 00:15 00:30 Temperature Pulse Rate 98 H 97 H 97 H Pulse Rate [ Anterior Bilateral Throughout] Pulse Rate [ From Monitor] Pulse Rate [ Throughout] Respiratory 14 16 Rate Respiratory Rate [Anterior Bilateral Throughout] Respiratory Rate [ Throughout] Blood Pressure 97/55 97/55 97/50 O2 Sat by Pulse 100 100 100 Oximetry 03/19/19 03/19/19 03/19/19 00:45 01:00 01:15 Temperature Pulse Rate 104 H 104 H 89 Pulse Rate [ Anterior Bilateral Throughout] Pulse Rate [ From Monitor] Pulse Rate [ Throughout] Respiratory 17 26 H 19 Rate Respiratory Rate [Anterior Bilateral Throughout] Respiratory Rate [ Throughout] Blood Pressure 86/53 92/47 95/53 O2 Sat by Pulse 100 100 100 Oximetry 03/19/19 03/19/19 03/19/19 01:30 01:45 02:00 Temperature Pulse Rate 90 97 H 97 H Pulse Rate [ Anterior Bilateral Throughout] Pulse Rate [ From Monitor] Pulse Rate [ Throughout] Respiratory 18 21 18 Rate Respiratory Rate [Anterior Bilateral Throughout] Respiratory Rate [ Throughout] Blood Pressure 102/53 104/55 96/53 O2 Sat by Pulse 100 100 100 Oximetry 03/19/19 03/19/19 03/19/19 02:15 02:30 02:45 Temperature Pulse Rate 91 H 94 H 96 H Pulse Rate [ Anterior Bilateral Throughout] Pulse Rate [ From Monitor] Pulse Rate [ Throughout] Respiratory 19 17 16 Rate Respiratory Rate [Anterior Bilateral Throughout] Respiratory Rate [ Throughout] Blood Pressure 96/53 99/56 100/64 O2 Sat by Pulse 100 100 100 Oximetry 03/19/19 03/19/19 03/19/19 03:00 03:15 03:30 Temperature Pulse Rate 94 H 99 H 101 H Pulse Rate [ Anterior Bilateral Throughout] Pulse Rate [ From Monitor] Pulse Rate [ Throughout] Respiratory 25 H 20 18 Rate Respiratory Rate [Anterior Bilateral Throughout] Respiratory Rate [ Throughout] Blood Pressure 103/57 105/59 100/65 O2 Sat by Pulse 100 100 100 Oximetry 03/19/19 03/19/19 03/19/19 03:41 03:45 04:00 Temperature 98.9 F 98.4 F Pulse Rate 96 H 102 H Pulse Rate [ Anterior Bilateral Throughout] Pulse Rate [ From Monitor] Pulse Rate [ Throughout] Respiratory 15 Rate Respiratory Rate [Anterior Bilateral Throughout] Respiratory Rate [ Throughout] Blood Pressure 105/64 O2 Sat by Pulse 100 Oximetry 03/19/19 03/19/19 03/19/19 04:01 04:15 04:30 Temperature Pulse Rate 102 H 103 H 96 H Pulse Rate [ Anterior Bilateral Throughout] Pulse Rate [ From Monitor] Pulse Rate [ Throughout] Respiratory 17 20 19 Rate Respiratory Rate [Anterior Bilateral Throughout] Respiratory Rate [ Throughout] Blood Pressure 105/64 105/57 106/49 O2 Sat by Pulse 98 99 99 Oximetry 03/19/19 03/19/19 03/19/19 04:36 04:45 05:00 Temperature Pulse Rate 100 H 106 H 100 H Pulse Rate [ Anterior Bilateral Throughout] Pulse Rate [ From Monitor] Pulse Rate [ Throughout] Respiratory 23 31 H Rate Respiratory Rate [Anterior Bilateral Throughout] Respiratory Rate [ Throughout] Blood Pressure 106/49 97/73 96/53 O2 Sat by Pulse 100 99 100 Oximetry 03/19/19 03/19/19 03/19/19 05:15 05:30 05:45 Temperature Pulse Rate 98 H 102 H 96 H Pulse Rate [ Anterior Bilateral Throughout] Pulse Rate [ From Monitor] Pulse Rate [ Throughout] Respiratory 20 19 32 H Rate Respiratory Rate [Anterior Bilateral Throughout] Respiratory Rate [ Throughout] Blood Pressure 93/52 102/49 102/54 O2 Sat by Pulse 99 100 100 Oximetry 03/19/19 03/19/19 03/19/19 06:00 06:15 06:30 Temperature Pulse Rate 99 H 97 H 100 H Pulse Rate [ Anterior Bilateral Throughout] Pulse Rate [ From Monitor] Pulse Rate [ Throughout] Respiratory 22 36 H 26 H Rate Respiratory Rate [Anterior Bilateral Throughout] Respiratory Rate [ Throughout] Blood Pressure 115/55 100/49 97/53 O2 Sat by Pulse 100 100 100 Oximetry 03/19/19 03/19/19 03/19/19 06:45 07:00 07:15 Temperature Pulse Rate 89 101 H 97 H Pulse Rate [ Anterior Bilateral Throughout] Pulse Rate [ From Monitor] Pulse Rate [ Throughout] Respiratory 22 18 18 Rate Respiratory Rate [Anterior Bilateral Throughout] Respiratory Rate [ Throughout] Blood Pressure 98/53 101/55 107/55 O2 Sat by Pulse 100 100 100 Oximetry 03/19/19 03/19/19 03/19/19 07:31 07:45 08:00 Temperature 99.7 F H Pulse Rate 98 H 98 H 93 H Pulse Rate [ Anterior Bilateral Throughout] Pulse Rate [ 103 H From Monitor] Pulse Rate [ Throughout] Respiratory 22 26 H 16 Rate Respiratory Rate [Anterior Bilateral Throughout] Respiratory Rate [ Throughout] Blood Pressure 109/59 111/64 108/56 O2 Sat by Pulse 100 100 100 Oximetry 03/19/19 03/19/19 03/19/19 08:15 08:31 08:39 Temperature Pulse Rate 109 H 107 H 95 H Pulse Rate [ Anterior Bilateral Throughout] Pulse Rate [ From Monitor] Pulse Rate [ Throughout] Respiratory 18 19 Rate Respiratory Rate [Anterior Bilateral Throughout] Respiratory Rate [ Throughout] Blood Pressure 105/53 130/57 126/57 O2 Sat by Pulse 100 100 100 Oximetry 03/19/19 03/19/19 03/19/19 08:45 09:00 09:01 Temperature Pulse Rate 104 H 103 H Pulse Rate [ 103 H Anterior Bilateral Throughout] Pulse Rate [ From Monitor] Pulse Rate [ 104 H Throughout] Respiratory 14 25 H Rate Respiratory 22 Rate [Anterior Bilateral Throughout] Respiratory 20 Rate [ Throughout] Blood Pressure 130/57 117/67 O2 Sat by Pulse 100 100 Oximetry 03/19/19 03/19/19 03/19/19 09:15 09:30 09:45 Temperature Pulse Rate 108 H 104 H 122 H Pulse Rate [ Anterior Bilateral Throughout] Pulse Rate [ From Monitor] Pulse Rate [ Throughout] Respiratory 17 19 21 Rate Respiratory Rate [Anterior Bilateral Throughout] Respiratory Rate [ Throughout] Blood Pressure 96/54 95/54 93/53 O2 Sat by Pulse 100 99 100 Oximetry 03/19/19 10:00 Temperature Pulse Rate 115 H Pulse Rate [ Anterior Bilateral Throughout] Pulse Rate [ From Monitor] Pulse Rate [ Throughout] Respiratory 17 Rate Respiratory Rate [Anterior Bilateral Throughout] Respiratory Rate [ Throughout] Blood Pressure 101/56 O2 Sat by Pulse 100 Oximetry Constitutional: no acute distress, alert Eyes: non-icteric ENT: oropharynx moist Neck: supple Effort: normal Ascultation: Bilateral: diminished breath sounds, other (coarse BS bilaterally) Percussion: Bilateral: not dull Cardiovascular: other (tachy, RR; no mrg) Gastrointestinal: normoactive bowel sounds, soft, non-tender, non-distended, other (ostomy in place, brown stool) Extremities: no cyanosis, no edema, pink and warm Neurologic: other (mild weakness LUE, o/w nonfocal) Psychiatric: other (unable to assess) CBC and BMP: 03/19/19 01:11 03/15/19 04:38 ABG, PT/INR, D-dimer: ABG POC ABG pH 7.510 (7.35-7.45) H 03/18/19 06:38 ABG pH 7.424 pH Units (7.350-7.450) 03/19/19 04:23 POC ABG pCO2 38.9 (35-45) 03/18/19 06:38 ABG pCO2 48.0 mm Hg 03/19/19 04:23 POC ABG pO2 164 (80-105) H 03/18/19 06:38 ABG pO2 78.3 mm Hg (80.0-90.0) L 03/19/19 04:23 POC ABG HCO3 31.0 (22-26 mml/L) 03/18/19 06:38 POC ABG Total CO2 32 (23-27mmol/L) 03/18/19 06:38 POC ABG O2 Sat 100 03/18/19 06:38 ABG O2 Saturation 97.0 % (95.0-99.0) 03/19/19 04:23 PT/INR, D-dimer PT 16.3 Sec. (12.2-14.9) H 03/01/19 09:39 INR 1.35 (0.87-1.13) H 03/01/19 09:39 2987.82 ng/mlDDU (0-234) H 02/22/19 05:54 Abnormal lab findings: Abnormal Labs 02/21/19 02/21/19 02/21/19 18:30 18:30 18:30 WBC RBC 3.26 L Hgb 8.8 L Hct 29.0 L MCH 27 L MCHC 30 L RDW 19.1 H Lymph % (Auto) 6.1 L [place] % (Auto) Eos % (Auto) Lymph # 0.4 L [place] # Eos # Seg Neutrophils % 86.2 H Seg Neutrophils # PT INR D-Dimer POC ABG pH POC ABG pCO2 POC ABG pO2 ABG pO2 ABG HCO3 ABG Base Excess ABG Hemoglobin Oxyhemoglobin Sodium 133 L Potassium 3.3 L Chloride 93.1 L Carbon Dioxide 33 H BUN Creatinine Glucose 161 H POC Glucose Calcium Phosphorus ALT Alkaline Phosphatase 136 H Total Creatine Kinase 37 L CK-MB (CK-2) Rel Index Troponin T 0.192 H* Albumin 2.4 L LDL Cholesterol Direct 36 L PTH Intact Salicylates Acetaminophen Crossmatch 02/21/19 02/21/19 02/21/19 18:42 20:04 20:04 WBC RBC Hgb Hct MCH MCHC RDW Lymph % (Auto) [place] % (Auto) Eos % (Auto) Lymph # [place] # Eos # Seg Neutrophils % Seg Neutrophils # PT INR D-Dimer POC ABG pH POC ABG pCO2 56.7 H POC ABG pO2 291 H ABG pO2 ABG HCO3 ABG Base Excess ABG Hemoglobin Oxyhemoglobin Sodium Potassium Chloride Carbon Dioxide BUN Creatinine Glucose POC Glucose Calcium Phosphorus ALT Alkaline Phosphatase Total Creatine Kinase CK-MB (CK-2) Rel Index Troponin T Albumin LDL Cholesterol Direct PTH Intact Salicylates < 0.3 L Acetaminophen < 5.0 L Crossmatch 02/21/19 02/22/19 02/22/19 22:35 03:42 03:42 WBC RBC 3.20 L Hgb 8.8 L Hct 27.6 L MCH MCHC RDW 18.9 H Lymph % (Auto) 7.4 L [place] % (Auto) Eos % (Auto) Lymph # 0.7 L [place] # Eos # Seg Neutrophils % 84.7 H Seg Neutrophils # PT INR D-Dimer POC ABG pH POC ABG pCO2 POC ABG pO2 ABG pO2 ABG HCO3 ABG Base Excess ABG Hemoglobin Oxyhemoglobin Sodium 134 L Potassium 2.6 L* D Chloride Carbon Dioxide BUN Creatinine Glucose POC Glucose Calcium Phosphorus ALT Alkaline Phosphatase Total Creatine Kinase CK-MB (CK-2) Rel Index 5.2 H Troponin T 0.202 H* Albumin LDL Cholesterol Direct PTH Intact Salicylates Acetaminophen Crossmatch 02/22/19 02/22/19 02/22/19 03:42 05:54 09:04 WBC RBC Hgb Hct MCH MCHC RDW Lymph % (Auto) [place] % (Auto) Eos % (Auto) Lymph # [place] # Eos # Seg Neutrophils % Seg Neutrophils # PT INR D-Dimer 2987.82 H POC ABG pH 7.451 H POC ABG pCO2 POC ABG pO2 ABG pO2 ABG HCO3 ABG Base Excess ABG Hemoglobin Oxyhemoglobin Sodium Potassium Chloride Carbon Dioxide BUN Creatinine Glucose POC Glucose Calcium Phosphorus ALT Alkaline Phosphatase Total Creatine Kinase CK-MB (CK-2) Rel Index 5.7 H Troponin T 0.193 H* Albumin LDL Cholesterol Direct PTH Intact Salicylates Acetaminophen Crossmatch 02/22/19 02/22/19 02/23/19 10:36 23:56 00:52 WBC RBC Hgb Hct MCH MCHC RDW Lymph % (Auto) [place] % (Auto) Eos % (Auto) Lymph # [place] # Eos # Seg Neutrophils % Seg Neutrophils # PT INR D-Dimer POC ABG pH POC ABG pCO2 POC ABG pO2 ABG pO2 ABG HCO3 ABG Base Excess ABG Hemoglobin Oxyhemoglobin Sodium Potassium 3.1 L Chloride Carbon Dioxide BUN Creatinine Glucose POC Glucose 58 L 111 H Calcium Phosphorus ALT Alkaline Phosphatase Total Creatine Kinase CK-MB (CK-2) Rel Index Troponin T Albumin LDL Cholesterol Direct PTH Intact Salicylates Acetaminophen Crossmatch 02/23/19 02/23/19 02/23/19 05:00 06:35 14:26 WBC RBC Hgb Hct MCH MCHC RDW Lymph % (Auto) [place] % (Auto) Eos % (Auto) Lymph # [place] # Eos # Seg Neutrophils % Seg Neutrophils # PT INR D-Dimer POC ABG pH POC ABG pCO2 POC ABG pO2 ABG pO2 ABG HCO3 ABG Base Excess ABG Hemoglobin Oxyhemoglobin Sodium 135 L Potassium 3.1 L Chloride Carbon Dioxide BUN 21 H Creatinine 2.0 H Glucose 57 L POC Glucose 64 L 62 L Calcium Phosphorus ALT Alkaline Phosphatase Total Creatine Kinase CK-MB (CK-2) Rel Index Troponin T Albumin LDL Cholesterol Direct PTH Intact Salicylates Acetaminophen Crossmatch 02/24/19 02/24/19 02/24/19 02:11 04:12 04:55 WBC RBC 2.84 L Hgb 7.8 L Hct 24.5 L MCH MCHC RDW 19.5 H Lymph % (Auto) [place] % (Auto) Eos % (Auto) Lymph # [place] # Eos # Seg Neutrophils % Seg Neutrophils # PT INR D-Dimer POC ABG pH 7.511 H POC ABG pCO2 33.9 L POC ABG pO2 62 L ABG pO2 ABG HCO3 ABG Base Excess ABG Hemoglobin Oxyhemoglobin Sodium Potassium Chloride Carbon Dioxide BUN Creatinine Glucose POC Glucose 69 L Calcium Phosphorus ALT Alkaline Phosphatase Total Creatine Kinase CK-MB (CK-2) Rel Index Troponin T Albumin LDL Cholesterol Direct PTH Intact Salicylates Acetaminophen Crossmatch 02/24/19 02/24/19 02/25/19 04:55 05:41 04:45 WBC RBC Hgb Hct MCH MCHC RDW Lymph % (Auto) [place] % (Auto) Eos % (Auto) Lymph # [place] # Eos # Seg Neutrophils % Seg Neutrophils # PT INR D-Dimer POC ABG pH 7.466 H POC ABG pCO2 POC ABG pO2 75 L ABG pO2 ABG HCO3 ABG Base Excess ABG Hemoglobin Oxyhemoglobin Sodium Potassium Chloride Carbon Dioxide BUN Creatinine 1.8 H Glucose 73 L POC Glucose 127 H Calcium Phosphorus ALT Alkaline Phosphatase Total Creatine Kinase CK-MB (CK-2) Rel Index Troponin T Albumin LDL Cholesterol Direct PTH Intact Salicylates Acetaminophen Crossmatch 02/25/19 02/25/19 02/26/19 16:34 21:33 03:45 WBC RBC 2.96 L Hgb 8.0 L Hct 25.8 L MCH 27 L MCHC 31 L RDW 20.0 H Lymph % (Auto) [place] % (Auto) Eos % (Auto) Lymph # [place] # Eos # Seg Neutrophils % Seg Neutrophils # PT INR D-Dimer POC ABG pH POC ABG pCO2 POC ABG pO2 ABG pO2 ABG HCO3 ABG Base Excess ABG Hemoglobin Oxyhemoglobin Sodium Potassium Chloride Carbon Dioxide BUN Creatinine Glucose POC Glucose 141 H 106 H Calcium Phosphorus ALT Alkaline Phosphatase Total Creatine Kinase CK-MB (CK-2) Rel Index Troponin T Albumin LDL Cholesterol Direct PTH Intact Salicylates Acetaminophen Crossmatch 02/26/19 02/26/19 02/26/19 03:45 04:13 07:53 WBC RBC Hgb Hct MCH MCHC RDW Lymph % (Auto) [place] % (Auto) Eos % (Auto) Lymph # [place] # Eos # Seg Neutrophils % Seg Neutrophils # PT INR D-Dimer POC ABG pH 7.470 H POC ABG pCO2 POC ABG pO2 ABG pO2 ABG HCO3 ABG Base Excess ABG Hemoglobin Oxyhemoglobin Sodium Potassium Chloride Carbon Dioxide BUN Creatinine 1.8 H Glucose POC Glucose 110 H Calcium Phosphorus ALT Alkaline Phosphatase Total Creatine Kinase CK-MB (CK-2) Rel Index Troponin T Albumin LDL Cholesterol Direct PTH Intact Salicylates Acetaminophen Crossmatch 02/26/19 02/26/19 02/27/19 11:56 17:43 00:12 WBC RBC Hgb Hct MCH MCHC RDW Lymph % (Auto) [place] % (Auto) Eos % (Auto) Lymph # [place] # Eos # Seg Neutrophils % Seg Neutrophils # PT INR D-Dimer POC ABG pH POC ABG pCO2 POC ABG pO2 ABG pO2 ABG HCO3 ABG Base Excess ABG Hemoglobin Oxyhemoglobin Sodium Potassium Chloride Carbon Dioxide BUN Creatinine Glucose POC Glucose 112 H 127 H 127 H Calcium Phosphorus ALT Alkaline Phosphatase Total Creatine Kinase CK-MB (CK-2) Rel Index Troponin T Albumin LDL Cholesterol Direct PTH Intact Salicylates Acetaminophen Crossmatch 02/27/19 02/27/19 02/27/19 04:35 13:15 18:02 WBC RBC Hgb Hct MCH MCHC RDW Lymph % (Auto) [place] % (Auto) Eos % (Auto) Lymph # [place] # Eos # Seg Neutrophils % Seg Neutrophils # PT INR D-Dimer POC ABG pH 7.483 H POC ABG pCO2 POC ABG pO2 61 L ABG pO2 ABG HCO3 ABG Base Excess ABG Hemoglobin Oxyhemoglobin Sodium Potassium Chloride Carbon Dioxide BUN Creatinine Glucose POC Glucose 143 H 106 H Calcium Phosphorus ALT Alkaline Phosphatase Total Creatine Kinase CK-MB (CK-2) Rel Index Troponin T Albumin LDL Cholesterol Direct PTH Intact Salicylates Acetaminophen Crossmatch 02/28/19 02/28/19 02/28/19 05:50 11:59 17:52 WBC RBC Hgb Hct MCH MCHC RDW Lymph % (Auto) [place] % (Auto) Eos % (Auto) Lymph # [place] # Eos # Seg Neutrophils % Seg Neutrophils # PT INR D-Dimer POC ABG pH POC ABG pCO2 POC ABG pO2 ABG pO2 ABG HCO3 ABG Base Excess ABG Hemoglobin Oxyhemoglobin Sodium Potassium Chloride Carbon Dioxide BUN Creatinine Glucose POC Glucose 134 H 128 H 142 H Calcium Phosphorus ALT Alkaline Phosphatase Total Creatine Kinase CK-MB (CK-2) Rel Index Troponin T Albumin LDL Cholesterol Direct PTH Intact Salicylates Acetaminophen Crossmatch 02/28/19 03/01/19 03/01/19 23:13 05:40 09:39 WBC RBC Hgb Hct MCH MCHC RDW Lymph % (Auto) [place] % (Auto) Eos % (Auto) Lymph # [place] # Eos # Seg Neutrophils % Seg Neutrophils # PT 16.3 H INR 1.35 H D-Dimer POC ABG pH POC ABG pCO2 POC ABG pO2 ABG pO2 ABG HCO3 ABG Base Excess ABG Hemoglobin Oxyhemoglobin Sodium Potassium Chloride Carbon Dioxide BUN Creatinine Glucose POC Glucose 112 H 111 H Calcium Phosphorus ALT Alkaline Phosphatase Total Creatine Kinase CK-MB (CK-2) Rel Index Troponin T Albumin LDL Cholesterol Direct PTH Intact Salicylates Acetaminophen Crossmatch 03/01/19 03/01/19 03/01/19 11:56 13:54 17:59 WBC RBC Hgb Hct MCH MCHC RDW Lymph % (Auto) [place] % (Auto) Eos % (Auto) Lymph # [place] # Eos # Seg Neutrophils % Seg Neutrophils # PT INR D-Dimer POC ABG pH POC ABG pCO2 POC ABG pO2 ABG pO2 ABG HCO3 ABG Base Excess ABG Hemoglobin Oxyhemoglobin Sodium Potassium Chloride Carbon Dioxide BUN 33 H Creatinine 2.8 H D Glucose 176 H POC Glucose 199 H 147 H Calcium Phosphorus ALT Alkaline Phosphatase Total Creatine Kinase CK-MB (CK-2) Rel Index Troponin T Albumin LDL Cholesterol Direct PTH Intact Salicylates Acetaminophen Crossmatch 03/02/19 03/02/19 03/02/19 05:15 05:15 05:15 WBC RBC 2.73 L Hgb 7.4 L Hct 23.0 L MCH 27 L MCHC RDW 19.9 H Lymph % (Auto) [place] % (Auto) 7.9 H Eos % (Auto) 7.6 H Lymph # 1.0 L [place] # Eos # 0.5 H Seg Neutrophils % Seg Neutrophils # PT INR D-Dimer POC ABG pH POC ABG pCO2 POC ABG pO2 ABG pO2 ABG HCO3 ABG Base Excess ABG Hemoglobin Oxyhemoglobin Sodium Potassium Chloride Carbon Dioxide BUN 43 H Creatinine 3.2 H Glucose POC Glucose Calcium Phosphorus 2.30 L ALT Alkaline Phosphatase Total Creatine Kinase CK-MB (CK-2) Rel Index Troponin T Albumin LDL Cholesterol Direct PTH Intact 267.6 H Salicylates Acetaminophen Crossmatch 03/02/19 03/02/19 03/03/19 12:32 18:20 13:30 WBC RBC Hgb Hct MCH MCHC RDW Lymph % (Auto) [place] % (Auto) Eos % (Auto) Lymph # [place] # Eos # Seg Neutrophils % Seg Neutrophils # PT INR D-Dimer POC ABG pH POC ABG pCO2 POC ABG pO2 ABG pO2 ABG HCO3 ABG Base Excess ABG Hemoglobin Oxyhemoglobin Sodium Potassium Chloride 97.3 L Carbon Dioxide BUN 26 H Creatinine 2.2 H Glucose 73 L POC Glucose 111 H 156 H Calcium Phosphorus ALT Alkaline Phosphatase Total Creatine Kinase CK-MB (CK-2) Rel Index Troponin T Albumin LDL Cholesterol Direct PTH Intact Salicylates Acetaminophen Crossmatch 03/04/19 03/04/19 03/04/19 00:02 05:37 05:40 WBC RBC 2.63 L Hgb 7.2 L Hct 22.2 L MCH MCHC RDW 20.2 H Lymph % (Auto) 10.5 L [place] % (Auto) Eos % (Auto) 4.6 H Lymph # 0.7 L [place] # Eos # Seg Neutrophils % 76.9 H Seg Neutrophils # PT INR D-Dimer POC ABG pH POC ABG pCO2 POC ABG pO2 ABG pO2 ABG HCO3 ABG Base Excess ABG Hemoglobin Oxyhemoglobin Sodium Potassium Chloride Carbon Dioxide BUN Creatinine Glucose POC Glucose 136 H 123 H Calcium Phosphorus ALT Alkaline Phosphatase Total Creatine Kinase CK-MB (CK-2) Rel Index Troponin T Albumin LDL Cholesterol Direct PTH Intact Salicylates Acetaminophen Crossmatch 03/04/19 03/04/19 03/04/19 05:40 11:39 23:20 WBC RBC Hgb Hct MCH MCHC RDW Lymph % (Auto) [place] % (Auto) Eos % (Auto) Lymph # [place] # Eos # Seg Neutrophils % Seg Neutrophils # PT INR D-Dimer POC ABG pH POC ABG pCO2 POC ABG pO2 ABG pO2 ABG HCO3 ABG Base Excess ABG Hemoglobin Oxyhemoglobin Sodium Potassium Chloride Carbon Dioxide BUN 34 H Creatinine 2.7 H Glucose 114 H POC Glucose 175 H 151 H Calcium Phosphorus ALT Alkaline Phosphatase Total Creatine Kinase CK-MB (CK-2) Rel Index Troponin T Albumin LDL Cholesterol Direct PTH Intact Salicylates Acetaminophen Crossmatch 03/05/19 03/05/19 03/05/19 05:37 12:08 17:11 WBC RBC Hgb Hct MCH MCHC RDW Lymph % (Auto) [place] % (Auto) Eos % (Auto) Lymph # [place] # Eos # Seg Neutrophils % Seg Neutrophils # PT INR D-Dimer POC ABG pH POC ABG pCO2 POC ABG pO2 ABG pO2 ABG HCO3 ABG Base Excess ABG Hemoglobin Oxyhemoglobin Sodium Potassium Chloride Carbon Dioxide BUN Creatinine Glucose POC Glucose 134 H 135 H 135 H Calcium Phosphorus ALT Alkaline Phosphatase Total Creatine Kinase CK-MB (CK-2) Rel Index Troponin T Albumin LDL Cholesterol Direct PTH Intact Salicylates Acetaminophen Crossmatch 03/06/19 03/06/19 03/06/19 00:16 13:05 18:09 WBC RBC Hgb Hct MCH MCHC RDW Lymph % (Auto) [place] % (Auto) Eos % (Auto) Lymph # [place] # Eos # Seg Neutrophils % Seg Neutrophils # PT INR D-Dimer POC ABG pH POC ABG pCO2 POC ABG pO2 ABG pO2 ABG HCO3 ABG Base Excess ABG Hemoglobin Oxyhemoglobin Sodium Potassium Chloride Carbon Dioxide BUN Creatinine Glucose POC Glucose 117 H 113 H 131 H Calcium Phosphorus ALT Alkaline Phosphatase Total Creatine Kinase CK-MB (CK-2) Rel Index Troponin T Albumin LDL Cholesterol Direct PTH Intact Salicylates Acetaminophen Crossmatch 03/07/19 03/08/19 03/08/19 05:25 05:33 16:00 WBC RBC 2.44 L Hgb 6.6 L Hct 20.8 L MCH 27 L MCHC RDW 19.2 H Lymph % (Auto) [place] % (Auto) Eos % (Auto) 8.6 H Lymph # 0.8 L [place] # Eos # 0.5 H Seg Neutrophils % 70.7 H Seg Neutrophils # PT INR D-Dimer POC ABG pH POC ABG pCO2 POC ABG pO2 ABG pO2 ABG HCO3 ABG Base Excess ABG Hemoglobin Oxyhemoglobin Sodium Potassium Chloride Carbon Dioxide BUN Creatinine Glucose POC Glucose 106 H 108 H Calcium Phosphorus ALT Alkaline Phosphatase Total Creatine Kinase CK-MB (CK-2) Rel Index Troponin T Albumin LDL Cholesterol Direct PTH Intact Salicylates Acetaminophen Crossmatch 03/08/19 03/08/19 03/08/19 16:00 18:38 Unknown WBC RBC Hgb Hct MCH MCHC RDW Lymph % (Auto) [place] % (Auto) Eos % (Auto) Lymph # [place] # Eos # Seg Neutrophils % Seg Neutrophils # PT INR D-Dimer POC ABG pH POC ABG pCO2 POC ABG pO2 ABG pO2 ABG HCO3 ABG Base Excess ABG Hemoglobin Oxyhemoglobin Sodium Potassium 5.4 H D Chloride Carbon Dioxide BUN 47 H Creatinine 2.6 H Glucose POC Glucose 123 H Calcium Phosphorus ALT < 5 L Alkaline Phosphatase Total Creatine Kinase CK-MB (CK-2) Rel Index Troponin T Albumin 2.2 L LDL Cholesterol Direct PTH Intact Salicylates Acetaminophen Crossmatch See Detail 03/09/19 03/09/19 03/09/19 10:48 12:28 13:53 WBC RBC 2.85 L Hgb 7.7 L Hct 24.2 L MCH 27 L MCHC RDW 18.7 H Lymph % (Auto) [place] % (Auto) Eos % (Auto) Lymph # [place] # Eos # Seg Neutrophils % Seg Neutrophils # PT INR D-Dimer POC ABG pH POC ABG pCO2 POC ABG pO2 ABG pO2 ABG HCO3 30.5 H ABG Base Excess 5.6 H ABG Hemoglobin 8.1 L Oxyhemoglobin 93.8 L Sodium Potassium Chloride Carbon Dioxide BUN Creatinine Glucose POC Glucose 114 H Calcium Phosphorus ALT Alkaline Phosphatase Total Creatine Kinase CK-MB (CK-2) Rel Index Troponin T Albumin LDL Cholesterol Direct PTH Intact Salicylates Acetaminophen Crossmatch 03/09/19 03/09/19 03/10/19 17:58 23:53 12:01 WBC RBC Hgb Hct MCH MCHC RDW Lymph % (Auto) [place] % (Auto) Eos % (Auto) Lymph # [place] # Eos # Seg Neutrophils % Seg Neutrophils # PT INR D-Dimer POC ABG pH POC ABG pCO2 POC ABG pO2 ABG pO2 ABG HCO3 ABG Base Excess ABG Hemoglobin Oxyhemoglobin Sodium Potassium Chloride Carbon Dioxide BUN Creatinine Glucose POC Glucose 108 H 128 H 144 H Calcium Phosphorus ALT Alkaline Phosphatase Total Creatine Kinase CK-MB (CK-2) Rel Index Troponin T Albumin LDL Cholesterol Direct PTH Intact Salicylates Acetaminophen Crossmatch 03/10/19 03/11/19 03/11/19 16:50 00:24 05:02 WBC RBC Hgb Hct MCH MCHC RDW Lymph % (Auto) [place] % (Auto) Eos % (Auto) Lymph # [place] # Eos # Seg Neutrophils % Seg Neutrophils # PT INR D-Dimer POC ABG pH POC ABG pCO2 POC ABG pO2 ABG pO2 ABG HCO3 ABG Base Excess ABG Hemoglobin Oxyhemoglobin Sodium Potassium Chloride Carbon Dioxide BUN Creatinine Glucose POC Glucose 147 H 123 H 120 H Calcium Phosphorus ALT Alkaline Phosphatase Total Creatine Kinase CK-MB (CK-2) Rel Index Troponin T Albumin LDL Cholesterol Direct PTH Intact Salicylates Acetaminophen Crossmatch 03/11/19 03/11/19 03/11/19 11:56 12:20 18:37 WBC RBC Hgb Hct MCH MCHC RDW Lymph % (Auto) [place] % (Auto) Eos % (Auto) Lymph # [place] # Eos # Seg Neutrophils % Seg Neutrophils # PT INR D-Dimer POC ABG pH POC ABG pCO2 POC ABG pO2 ABG pO2 ABG HCO3 ABG Base Excess ABG Hemoglobin Oxyhemoglobin Sodium Potassium 5.2 H Chloride Carbon Dioxide BUN Creatinine Glucose POC Glucose 123 H 125 H Calcium Phosphorus ALT Alkaline Phosphatase Total Creatine Kinase CK-MB (CK-2) Rel Index Troponin T Albumin LDL Cholesterol Direct PTH Intact Salicylates Acetaminophen Crossmatch 03/11/19 03/12/19 03/12/19 22:52 12:04 18:25 WBC RBC Hgb Hct MCH MCHC RDW Lymph % (Auto) [place] % (Auto) Eos % (Auto) Lymph # [place] # Eos # Seg Neutrophils % Seg Neutrophils # PT INR D-Dimer POC ABG pH POC ABG pCO2 POC ABG pO2 ABG pO2 ABG HCO3 ABG Base Excess ABG Hemoglobin Oxyhemoglobin Sodium Potassium Chloride Carbon Dioxide BUN Creatinine Glucose POC Glucose 110 H 106 H 118 H Calcium Phosphorus ALT Alkaline Phosphatase Total Creatine Kinase CK-MB (CK-2) Rel Index Troponin T Albumin LDL Cholesterol Direct PTH Intact Salicylates Acetaminophen Crossmatch 03/12/19 03/13/19 03/13/19 23:36 04:38 04:38 WBC RBC 2.95 L Hgb 7.9 L Hct 24.9 L MCH 27 L MCHC RDW 19.9 H Lymph % (Auto) 11.1 L [place] % (Auto) 8.1 H Eos % (Auto) 4.4 H Lymph # 0.9 L [place] # Eos # Seg Neutrophils % 75.4 H Seg Neutrophils # PT INR D-Dimer POC ABG pH POC ABG pCO2 POC ABG pO2 ABG pO2 ABG HCO3 ABG Base Excess ABG Hemoglobin Oxyhemoglobin Sodium 136 L Potassium 5.1 H Chloride 93.8 L Carbon Dioxide BUN 48 H Creatinine 2.7 H Glucose 102 H POC Glucose 115 H Calcium Phosphorus ALT < 5 L Alkaline Phosphatase 143 H Total Creatine Kinase CK-MB (CK-2) Rel Index Troponin T Albumin 2.5 L LDL Cholesterol Direct PTH Intact Salicylates Acetaminophen Crossmatch 03/13/19 03/13/19 03/13/19 05:33 13:37 18:03 WBC RBC Hgb Hct MCH MCHC RDW Lymph % (Auto) [place] % (Auto) Eos % (Auto) Lymph # [place] # Eos # Seg Neutrophils % Seg Neutrophils # PT INR D-Dimer POC ABG pH POC ABG pCO2 POC ABG pO2 ABG pO2 ABG HCO3 ABG Base Excess ABG Hemoglobin Oxyhemoglobin Sodium Potassium Chloride Carbon Dioxide BUN Creatinine Glucose POC Glucose 140 H 150 H 158 H Calcium Phosphorus ALT Alkaline Phosphatase Total Creatine Kinase CK-MB (CK-2) Rel Index Troponin T Albumin LDL Cholesterol Direct PTH Intact Salicylates Acetaminophen Crossmatch 03/13/19 03/14/19 03/14/19 23:32 05:24 12:20 WBC RBC Hgb Hct MCH MCHC RDW Lymph % (Auto) [place] % (Auto) Eos % (Auto) Lymph # [place] # Eos # Seg Neutrophils % Seg Neutrophils # PT INR D-Dimer POC ABG pH POC ABG pCO2 POC ABG pO2 ABG pO2 ABG HCO3 ABG Base Excess ABG Hemoglobin Oxyhemoglobin Sodium Potassium Chloride Carbon Dioxide BUN Creatinine Glucose POC Glucose 162 H 146 H 127 H Calcium Phosphorus ALT Alkaline Phosphatase Total Creatine Kinase CK-MB (CK-2) Rel Index Troponin T Albumin LDL Cholesterol Direct PTH Intact Salicylates Acetaminophen Crossmatch 03/14/19 03/14/19 03/15/19 18:05 23:57 04:38 WBC 12.8 H RBC 3.11 L Hgb 8.1 L Hct 26.5 L MCH 26 L MCHC 31 L RDW 19.7 H Lymph % (Auto) 4.4 L [place] % (Auto) 7.4 H Eos % (Auto) Lymph # 0.6 L [place] # 0.9 H Eos # Seg Neutrophils % 87.3 H Seg Neutrophils # 11.2 H PT INR D-Dimer POC ABG pH POC ABG pCO2 POC ABG pO2 ABG pO2 ABG HCO3 ABG Base Excess ABG Hemoglobin Oxyhemoglobin Sodium Potassium Chloride Carbon Dioxide BUN Creatinine Glucose POC Glucose 142 H 155 H Calcium Phosphorus ALT Alkaline Phosphatase Total Creatine Kinase CK-MB (CK-2) Rel Index Troponin T Albumin LDL Cholesterol Direct PTH Intact Salicylates Acetaminophen Crossmatch 03/15/19 03/15/19 03/15/19 04:38 05:31 11:32 WBC RBC Hgb Hct MCH MCHC RDW Lymph % (Auto) [place] % (Auto) Eos % (Auto) Lymph # [place] # Eos # Seg Neutrophils % Seg Neutrophils # PT INR D-Dimer POC ABG pH POC ABG pCO2 POC ABG pO2 ABG pO2 ABG HCO3 ABG Base Excess ABG Hemoglobin Oxyhemoglobin Sodium 135 L Potassium Chloride 91.9 L Carbon Dioxide BUN 54 H Creatinine 2.8 H Glucose 128 H POC Glucose 160 H 109 H Calcium 11.1 H Phosphorus ALT Alkaline Phosphatase 161 H Total Creatine Kinase CK-MB (CK-2) Rel Index Troponin T Albumin 2.3 L LDL Cholesterol Direct PTH Intact Salicylates Acetaminophen Crossmatch 03/15/19 03/15/19 03/16/19 18:15 23:41 05:40 WBC RBC Hgb Hct MCH MCHC RDW Lymph % (Auto) [place] % (Auto) Eos % (Auto) Lymph # [place] # Eos # Seg Neutrophils % Seg Neutrophils # PT INR D-Dimer POC ABG pH POC ABG pCO2 POC ABG pO2 ABG pO2 ABG HCO3 ABG Base Excess ABG Hemoglobin Oxyhemoglobin Sodium Potassium Chloride Carbon Dioxide BUN Creatinine Glucose POC Glucose 151 H 110 H 163 H Calcium Phosphorus ALT Alkaline Phosphatase Total Creatine Kinase CK-MB (CK-2) Rel Index Troponin T Albumin LDL Cholesterol Direct PTH Intact Salicylates Acetaminophen Crossmatch 03/16/19 03/16/19 03/16/19 11:55 17:04 23:58 WBC RBC Hgb Hct MCH MCHC RDW Lymph % (Auto) [place] % (Auto) Eos % (Auto) Lymph # [place] # Eos # Seg Neutrophils % Seg Neutrophils # PT INR D-Dimer POC ABG pH POC ABG pCO2 POC ABG pO2 ABG pO2 ABG HCO3 ABG Base Excess ABG Hemoglobin Oxyhemoglobin Sodium Potassium Chloride Carbon Dioxide BUN Creatinine Glucose POC Glucose 114 H 147 H 192 H Calcium Phosphorus ALT Alkaline Phosphatase Total Creatine Kinase CK-MB (CK-2) Rel Index Troponin T Albumin LDL Cholesterol Direct PTH Intact Salicylates Acetaminophen Crossmatch 03/17/19 03/17/19 03/17/19 05:53 11:17 17:01 WBC RBC Hgb Hct MCH MCHC RDW Lymph % (Auto) [place] % (Auto) Eos % (Auto) Lymph # [place] # Eos # Seg Neutrophils % Seg Neutrophils # PT INR D-Dimer POC ABG pH POC ABG pCO2 POC ABG pO2 ABG pO2 ABG HCO3 ABG Base Excess ABG Hemoglobin Oxyhemoglobin Sodium Potassium Chloride Carbon Dioxide BUN Creatinine Glucose POC Glucose 151 H 161 H 152 H Calcium Phosphorus ALT Alkaline Phosphatase Total Creatine Kinase CK-MB (CK-2) Rel Index Troponin T Albumin LDL Cholesterol Direct PTH Intact Salicylates Acetaminophen Crossmatch 03/17/19 03/18/19 03/18/19 21:47 04:44 06:38 WBC RBC Hgb Hct MCH MCHC RDW Lymph % (Auto) [place] % (Auto) Eos % (Auto) Lymph # [place] # Eos # Seg Neutrophils % Seg Neutrophils # PT INR D-Dimer POC ABG pH 7.510 H POC ABG pCO2 POC ABG pO2 164 H ABG pO2 ABG HCO3 ABG Base Excess ABG Hemoglobin Oxyhemoglobin Sodium Potassium Chloride Carbon Dioxide BUN Creatinine Glucose POC Glucose 170 H 150 H Calcium Phosphorus ALT Alkaline Phosphatase Total Creatine Kinase CK-MB (CK-2) Rel Index Troponin T Albumin LDL Cholesterol Direct PTH Intact Salicylates Acetaminophen Crossmatch 03/18/19 03/18/19 03/18/19 12:12 17:47 23:25 WBC RBC Hgb Hct MCH MCHC RDW Lymph % (Auto) [place] % (Auto) Eos % (Auto) Lymph # [place] # Eos # Seg Neutrophils % Seg Neutrophils # PT INR D-Dimer POC ABG pH POC ABG pCO2 POC ABG pO2 ABG pO2 ABG HCO3 ABG Base Excess ABG Hemoglobin Oxyhemoglobin Sodium Potassium Chloride Carbon Dioxide BUN Creatinine Glucose POC Glucose 145 H 149 H 190 H Calcium Phosphorus ALT Alkaline Phosphatase Total Creatine Kinase CK-MB (CK-2) Rel Index Troponin T Albumin LDL Cholesterol Direct PTH Intact Salicylates Acetaminophen Crossmatch 03/19/19 03/19/19 03/19/19 01:11 04:23 05:22 WBC 15.6 H RBC 2.51 L Hgb 6.5 L Hct 21.6 L MCH 26 L MCHC 30 L RDW 19.8 H Lymph % (Auto) 6.0 L [place] % (Auto) Eos % (Auto) Lymph # 0.9 L [place] # 1.0 H Eos # Seg Neutrophils % 85.5 H Seg Neutrophils # 13.4 H PT INR D-Dimer POC ABG pH POC ABG pCO2 POC ABG pO2 ABG pO2 78.3 L ABG HCO3 30.7 H ABG Base Excess 5.8 H ABG Hemoglobin 5.8 L Oxyhemoglobin 94.6 L Sodium Potassium Chloride Carbon Dioxide BUN Creatinine Glucose POC Glucose Calcium Phosphorus ALT Alkaline Phosphatase Total Creatine Kinase CK-MB (CK-2) Rel Index Troponin T Albumin LDL Cholesterol Direct PTH Intact Salicylates Acetaminophen Crossmatch See Detail 03/19/19 03/19/19 05:35 08:54 WBC RBC Hgb Hct MCH MCHC RDW Lymph % (Auto) [place] % (Auto) Eos % (Auto) Lymph # [place] # Eos # Seg Neutrophils % Seg Neutrophils # PT INR D-Dimer POC ABG pH POC ABG pCO2 POC ABG pO2 ABG pO2 ABG HCO3 ABG Base Excess ABG Hemoglobin Oxyhemoglobin Sodium Potassium Chloride Carbon Dioxide BUN Creatinine Glucose POC Glucose 167 H Calcium Phosphorus ALT Alkaline Phosphatase Total Creatine Kinase CK-MB (CK-2) Rel Index Troponin T Albumin LDL Cholesterol Direct PTH Intact Salicylates Acetaminophen Crossmatch See Detail
--- NOTE | 2019-03-19 13:44 | Progress Note ---
Assessment and Plan Cultures: 03/14 Sputum Cx: MDR Acinetobacter 03/14 BCx: NGTD A/P: 63 yo M PMHx CVA, CHF, AICD, DM2, L foot ulcer, ESRD on HD, HTN, afib admitted with respiratory failure and fluid overload 1. Sepsis secondary to MDR Acinetobacter pneumonia - Cultures with multidrug resistant Acinetobacter baumannii. Sensitive to Bactrim. Normally would consider a contaminant, however given his symptoms will treat. He is poor prognosis, as such will avoid aminoglycosides as long as possible. Will treat with Bactrim ESRD dosing. Discussed with pharmacy. If he fails this would need to consider aminoglycoside or Poly B/Minocycline. Need to consider hospice, he will continue to develop worsening resistance and we will exhaust all therapeutic options for AcBau very quicky. 2. Hypoxic respiratory failure - 2/2 fluid overload. Improving 3. DM2 4. L foot ulcer 5. Hx of sacral ulcer s/p extensive treatment - treated with 6 weeks of vancomycin and meropenem earlier this year 6. ESRD on HD 7. HTN 8. Afib Recs: - Stop cefepime - start Bactrim ESRD dosing per pharmacy - follow up blood cultures - contact precautions Thank you for the consult, we will continue to follow. Sherman Shirley MD [facility], [place], [facility] ([facility] M: [phone] O: [phone] F: [phone] Subjective Date of service: 03/19/19 Principal diagnosis: respiratory failure Interval history: Trach and ventilator. Afebrile. CXR with new L pneumonia. Objective - Exam Narrative Exam: Constitutional: Alert, cooperative. No acute distress Neck: Supple, no meningeal signs. Trach in place. Oral: dentition fair, no thrush Cardiovascular: S1, S2 normal. Respiratory: Good air entry, clear to auscultation bilaterally GI: Soft, non-tender; bowel sounds normal. No peritoneal signs. Musculoskeletal: No pedal edema, no cyanosis. Skin: No rash or abscess Neurological: Awake, trached. No gross abnormality - Constitutional Vitals: Vital Signs Temp Pulse Resp BP Pulse Ox 98.9 F 110 H 17 103/54 100 03/19/19 12:00 03/19/19 12:47 03/19/19 12:45 03/19/19 12:47 03/19/19 12:47 Temperature -Last 24 Hours Temperature 98.9 F Temperature 99.7 F Temperature 98.4 F Temperature 98.9 F Temperature 98.9 F Temperature 98.4 F Temperature 97.9 F Temperature 97.9 F Temperature 97.6 F - Labs CBC & Chem 7: 03/19/19 01:11 03/15/19 04:38 Labs: Abnormal lab results 03/18/19 03/18/19 03/18/19 Range/Units 12:12 17:47 23:25 WBC (4.5-11.0) K/mm3 RBC (3.65-5.03) M/mm3 Hgb (11.8-15.2) gm/dl Hct (35.5-45.6) % MCH (28-32) pg MCHC (32-34) % RDW (13.2-15.2) % Lymph % (Auto) (13.4-35.0) % Lymph # (1.2-5.4) K/mm3 [place] # (0.0-0.8) K/mm3 Seg Neutrophils % (40.0-70.0) % Seg Neutrophils # (1.8-7.7) K/mm3 ABG pO2 (80.0-90.0) mm Hg ABG HCO3 (20.0-26.0) mmol/L ABG Base Excess (-2.0-3.0) mmol/L ABG Hemoglobin (14.0-18.0) gm/dl Oxyhemoglobin (95.0-99.0) % POC Glucose 145 H 149 H 190 H (70-105) Crossmatch 03/19/19 03/19/19 03/19/19 Range/Units 01:11 04:23 05:22 WBC 15.6 H (4.5-11.0) K/mm3 RBC 2.51 L (3.65-5.03) M/mm3 Hgb 6.5 L (11.8-15.2) gm/dl Hct 21.6 L (35.5-45.6) % MCH 26 L (28-32) pg MCHC 30 L (32-34) % RDW 19.8 H (13.2-15.2) % Lymph % (Auto) 6.0 L (13.4-35.0) % Lymph # 0.9 L (1.2-5.4) K/mm3 [place] # 1.0 H (0.0-0.8) K/mm3 Seg Neutrophils % 85.5 H (40.0-70.0) % Seg Neutrophils # 13.4 H (1.8-7.7) K/mm3 ABG pO2 78.3 L (80.0-90.0) mm Hg ABG HCO3 30.7 H (20.0-26.0) mmol/L ABG Base Excess 5.8 H (-2.0-3.0) mmol/L ABG Hemoglobin 5.8 L (14.0-18.0) gm/dl Oxyhemoglobin 94.6 L (95.0-99.0) % POC Glucose (70-105) Crossmatch See Detail 03/19/19 03/19/19 03/19/19 Range/Units 05:35 08:54 12:36 WBC (4.5-11.0) K/mm3 RBC (3.65-5.03) M/mm3 Hgb (11.8-15.2) gm/dl Hct (35.5-45.6) % MCH (28-32) pg MCHC (32-34) % RDW (13.2-15.2) % Lymph % (Auto) (13.4-35.0) % Lymph # (1.2-5.4) K/mm3 [place] # (0.0-0.8) K/mm3 Seg Neutrophils % (40.0-70.0) % Seg Neutrophils # (1.8-7.7) K/mm3 ABG pO2 (80.0-90.0) mm Hg ABG HCO3 (20.0-26.0) mmol/L ABG Base Excess (-2.0-3.0) mmol/L ABG Hemoglobin (14.0-18.0) gm/dl Oxyhemoglobin (95.0-99.0) % POC Glucose 167 H 167 H (70-105) Crossmatch See Detail
[2019-03-19] MEDS: SULFAMETHOXAZOLE/TRIMETHOPRIM 200-40 MG/5 ML ORAL LIQD 30 ML PO SCH (15:45)
--- NOTE | 2019-03-19 16:36 | Progress Note ---
Assessment and Plan - Patient Problems (1) ESRD (end stage renal disease) on dialysis Current Visit: Yes Status: Chronic Plan to address problem: End stage renal disease : - access: Left arm AVG Continue hemodialysis Saturday (2) Diabetes mellitus, insulin dependent (IDDM), uncontrolled Current Visit: No Status: Acute Plan to address problem: DM type II uncontrolled Monitor Fingersticks (3) Anemia in chronic kidney disease, on chronic dialysis Current Visit: Yes Status: Acute Plan to address problem: Anemia of chronic kidney disease hemoglobin 8.2 -6.5g/dl We'll give Epogen Monitor CBC (4) Hypertension Current Visit: Yes Status: Acute Plan to address problem: Hypertension controlled Ensure medications Monitor blood pressure Subjective Principal diagnosis: respiratory failure Interval history: 63-year-old gentleman with medical history significant for end-stage renal disease on hemodialysis via a left arm AV graft is currently in the [facility] for plan for dialysis today Patient is poorly responsive review of systems unobtainable tracheal stain with gram positive rods. now with trache on ventilator. Received HD on Saturday. Objective - Vital Signs Vital signs: Vital Signs - 12hr 03/19/19 03/19/19 03/19/19 04:36 04:45 05:00 Temperature Pulse Rate 100 H 106 H 100 H Pulse Rate [ Anterior Bilateral Throughout] Pulse Rate [ From Monitor] Pulse Rate [ Throughout] Respiratory 23 31 H Rate Respiratory Rate [Anterior Bilateral Throughout] Respiratory Rate [ Throughout] Blood Pressure 106/49 97/73 96/53 O2 Sat by Pulse 100 99 100 Oximetry O2 Sat by Pulse Oximetry [ Assessment] 03/19/19 03/19/19 03/19/19 05:15 05:30 05:45 Temperature Pulse Rate 98 H 102 H 96 H Pulse Rate [ Anterior Bilateral Throughout] Pulse Rate [ From Monitor] Pulse Rate [ Throughout] Respiratory 20 19 32 H Rate Respiratory Rate [Anterior Bilateral Throughout] Respiratory Rate [ Throughout] Blood Pressure 93/52 102/49 102/54 O2 Sat by Pulse 99 100 100 Oximetry O2 Sat by Pulse Oximetry [ Assessment] 03/19/19 03/19/19 03/19/19 06:00 06:15 06:30 Temperature Pulse Rate 99 H 97 H 100 H Pulse Rate [ Anterior Bilateral Throughout] Pulse Rate [ From Monitor] Pulse Rate [ Throughout] Respiratory 22 36 H 26 H Rate Respiratory Rate [Anterior Bilateral Throughout] Respiratory Rate [ Throughout] Blood Pressure 115/55 100/49 97/53 O2 Sat by Pulse 100 100 100 Oximetry O2 Sat by Pulse Oximetry [ Assessment] 03/19/19 03/19/19 03/19/19 06:45 07:00 07:15 Temperature Pulse Rate 89 101 H 97 H Pulse Rate [ Anterior Bilateral Throughout] Pulse Rate [ From Monitor] Pulse Rate [ Throughout] Respiratory 22 18 18 Rate Respiratory Rate [Anterior Bilateral Throughout] Respiratory Rate [ Throughout] Blood Pressure 98/53 101/55 107/55 O2 Sat by Pulse 100 100 100 Oximetry O2 Sat by Pulse Oximetry [ Assessment] 03/19/19 03/19/19 03/19/19 07:31 07:45 08:00 Temperature 99.7 F H Pulse Rate 98 H 98 H 93 H Pulse Rate [ Anterior Bilateral Throughout] Pulse Rate [ 103 H From Monitor] Pulse Rate [ Throughout] Respiratory 22 26 H 16 Rate Respiratory Rate [Anterior Bilateral Throughout] Respiratory Rate [ Throughout] Blood Pressure 109/59 111/64 108/56 O2 Sat by Pulse 100 100 100 Oximetry O2 Sat by Pulse Oximetry [ Assessment] 03/19/19 03/19/19 03/19/19 08:15 08:31 08:39 Temperature Pulse Rate 109 H 107 H 95 H Pulse Rate [ Anterior Bilateral Throughout] Pulse Rate [ From Monitor] Pulse Rate [ Throughout] Respiratory 18 19 Rate Respiratory Rate [Anterior Bilateral Throughout] Respiratory Rate [ Throughout] Blood Pressure 105/53 130/57 126/57 O2 Sat by Pulse 100 100 100 Oximetry O2 Sat by Pulse Oximetry [ Assessment] 03/19/19 03/19/19 03/19/19 08:45 09:00 09:01 Temperature Pulse Rate 104 H 103 H Pulse Rate [ 103 H Anterior Bilateral Throughout] Pulse Rate [ From Monitor] Pulse Rate [ 104 H Throughout] Respiratory 14 25 H Rate Respiratory 22 Rate [Anterior Bilateral Throughout] Respiratory 20 Rate [ Throughout] Blood Pressure 130/57 117/67 O2 Sat by Pulse 100 100 Oximetry O2 Sat by Pulse Oximetry [ Assessment] 03/19/19 03/19/19 03/19/19 09:15 09:30 09:45 Temperature Pulse Rate 108 H 104 H 122 H Pulse Rate [ Anterior Bilateral Throughout] Pulse Rate [ From Monitor] Pulse Rate [ Throughout] Respiratory 17 19 21 Rate Respiratory Rate [Anterior Bilateral Throughout] Respiratory Rate [ Throughout] Blood Pressure 96/54 95/54 93/53 O2 Sat by Pulse 100 99 100 Oximetry O2 Sat by Pulse Oximetry [ Assessment] 03/19/19 03/19/19 03/19/19 10:00 10:15 10:30 Temperature Pulse Rate 115 H 116 H 106 H Pulse Rate [ Anterior Bilateral Throughout] Pulse Rate [ From Monitor] Pulse Rate [ Throughout] Respiratory 17 21 15 Rate Respiratory Rate [Anterior Bilateral Throughout] Respiratory Rate [ Throughout] Blood Pressure 101/56 101/56 91/53 O2 Sat by Pulse 100 100 100 Oximetry O2 Sat by Pulse Oximetry [ Assessment] 03/19/19 03/19/19 03/19/19 10:45 11:00 11:15 Temperature Pulse Rate 111 H 106 H 102 H Pulse Rate [ Anterior Bilateral Throughout] Pulse Rate [ From Monitor] Pulse Rate [ Throughout] Respiratory 16 20 22 Rate Respiratory Rate [Anterior Bilateral Throughout] Respiratory Rate [ Throughout] Blood Pressure 91/53 104/56 101/52 O2 Sat by Pulse 100 100 100 Oximetry O2 Sat by Pulse Oximetry [ Assessment] 03/19/19 03/19/19 03/19/19 11:31 11:45 12:00 Temperature 98.9 F Pulse Rate 114 H 110 H 109 H Pulse Rate [ Anterior Bilateral Throughout] Pulse Rate [ 112 H From Monitor] Pulse Rate [ Throughout] Respiratory 24 23 27 H Rate Respiratory Rate [Anterior Bilateral Throughout] Respiratory Rate [ Throughout] Blood Pressure 109/47 100/52 96/55 O2 Sat by Pulse 100 100 100 Oximetry O2 Sat by Pulse 100 Oximetry [ Assessment] 03/19/19 03/19/19 03/19/19 12:15 12:30 12:45 Temperature Pulse Rate 106 H 115 H 109 H Pulse Rate [ Anterior Bilateral Throughout] Pulse Rate [ From Monitor] Pulse Rate [ Throughout] Respiratory 19 22 17 Rate Respiratory Rate [Anterior Bilateral Throughout] Respiratory Rate [ Throughout] Blood Pressure 100/57 98/54 98/54 O2 Sat by Pulse 100 100 100 Oximetry O2 Sat by Pulse Oximetry [ Assessment] 03/19/19 03/19/19 03/19/19 12:47 13:00 13:15 Temperature Pulse Rate 110 H 113 H 110 H Pulse Rate [ Anterior Bilateral Throughout] Pulse Rate [ From Monitor] Pulse Rate [ Throughout] Respiratory 16 15 Rate Respiratory Rate [Anterior Bilateral Throughout] Respiratory Rate [ Throughout] Blood Pressure 103/54 106/55 106/55 O2 Sat by Pulse 100 100 100 Oximetry O2 Sat by Pulse Oximetry [ Assessment] 03/19/19 03/19/19 03/19/19 13:31 13:45 14:00 Temperature Pulse Rate 124 H 115 H 116 H Pulse Rate [ Anterior Bilateral Throughout] Pulse Rate [ From Monitor] Pulse Rate [ Throughout] Respiratory 13 16 26 H Rate Respiratory Rate [Anterior Bilateral Throughout] Respiratory Rate [ Throughout] Blood Pressure 111/86 91/61 101/59 O2 Sat by Pulse 99 100 100 Oximetry O2 Sat by Pulse Oximetry [ Assessment] 03/19/19 03/19/19 03/19/19 14:06 14:15 14:21 Temperature 99.5 F 99.4 F Pulse Rate 119 H 115 H 111 H Pulse Rate [ Anterior Bilateral Throughout] Pulse Rate [ From Monitor] Pulse Rate [ Throughout] Respiratory 18 31 H 17 Rate Respiratory Rate [Anterior Bilateral Throughout] Respiratory Rate [ Throughout] Blood Pressure 101/59 105/63 105/63 O2 Sat by Pulse 100 100 100 Oximetry O2 Sat by Pulse Oximetry [ Assessment] 03/19/19 03/19/19 03/19/19 14:24 14:30 14:45 Temperature Pulse Rate 113 H 111 H Pulse Rate [ Anterior Bilateral Throughout] Pulse Rate [ From Monitor] Pulse Rate [ 115 H Throughout] Respiratory 22 21 Rate Respiratory Rate [Anterior Bilateral Throughout] Respiratory 22 Rate [ Throughout] Blood Pressure 105/62 107/62 O2 Sat by Pulse 100 99 Oximetry O2 Sat by Pulse Oximetry [ Assessment] 03/19/19 03/19/19 03/19/19 14:51 15:00 15:15 Temperature 99.2 F Pulse Rate 112 H 112 H 113 H Pulse Rate [ Anterior Bilateral Throughout] Pulse Rate [ From Monitor] Pulse Rate [ Throughout] Respiratory 18 21 21 Rate Respiratory Rate [Anterior Bilateral Throughout] Respiratory Rate [ Throughout] Blood Pressure 105/63 105/63 101/62 O2 Sat by Pulse 100 100 99 Oximetry O2 Sat by Pulse Oximetry [ Assessment] 03/19/19 03/19/19 03/19/19 15:21 15:30 15:45 Temperature 99.3 F Pulse Rate 116 H 111 H 113 H Pulse Rate [ Anterior Bilateral Throughout] Pulse Rate [ From Monitor] Pulse Rate [ Throughout] Respiratory 17 22 20 Rate Respiratory Rate [Anterior Bilateral Throughout] Respiratory Rate [ Throughout] Blood Pressure 109/54 103/58 109/54 O2 Sat by Pulse 100 100 100 Oximetry O2 Sat by Pulse Oximetry [ Assessment] 03/19/19 03/19/19 03/19/19 15:51 16:00 16:01 Temperature 98.7 F Pulse Rate 119 H 115 H 110 H Pulse Rate [ Anterior Bilateral Throughout] Pulse Rate [ 119 H From Monitor] Pulse Rate [ Throughout] Respiratory 16 20 Rate Respiratory Rate [Anterior Bilateral Throughout] Respiratory Rate [ Throughout] Blood Pressure 119/61 113/61 O2 Sat by Pulse 100 100 Oximetry O2 Sat by Pulse Oximetry [ Assessment] - General Appearance General appearance: well-developed, well-nourished EENT: ATNC, PERRL, mucous membranes moist Neck: no JVD Respiratory: Present: Clear to Ascultation, Decreased Breath Sounds Cardiology: regular, S1S2 Gastrointestinal: normal, normoactive bowel sounds Integumentary: no rash Neurologic: alert and oriented x3, CN 3-12 intact Psychiatric: mood/affect appropriate - Lab 03/19/19 01:11 03/15/19 04:38 Most recent lab results ABG pH 7.424 pH Units (7.350-7.450) 03/19/19 04:23 ABG pCO2 48.0 mm Hg 03/19/19 04:23 ABG pO2 78.3 mm Hg (80.0-90.0) L 03/19/19 04:23 ABG HCO3 30.7 mmol/L (20.0-26.0) H 03/19/19 04:23 ABG O2 Saturation 97.0 % (95.0-99.0) 03/19/19 04:23 Calcium 11.1 mg/dL (8.4-10.2) H 03/15/19 04:38 Phosphorus 3.10 mg/dL (2.5-4.5) 03/15/19 04:38 Magnesium 2.30 mg/dL (1.7-2.3) 03/15/19 04:38 Medications & Allergies - Medications Allergies/Adverse Reactions: Allergies haloperidol [From Haldol] Adverse Reaction (Verified 03/13/18 12:10) Unknown haloperidol lactate [From Haldol] Adverse Reaction (Verified 03/13/18 12:10) Unknown Home Medications: Home Medications Medication Instructions Recorded Confirmed Last Taken Type risperiDONE [RisperDAL] 1 mg PO QAM 03/13/18 02/21/19 Unknown History Sertraline [Zoloft] 100 mg PO QDAY 08/26/18 02/21/19 Unknown History Polyethylene Glycol 3350 [Miralax 17 gm PO QDAY #30 packet 11/05/18 02/21/19 U nknown Rx 3350] Aspirin EC [Halfprin EC] 81 mg PO DAILY #30 11/19/18 02/21/19 Unknown Rx Docusate Sodium [Colace CAP] 100 mg PO BID #60 11/19/18 02/21/19 Unknown Rx Folic Acid [Folvite] 1 mg PO DAILY #30 tab 11/19/18 02/21/19 Unknown Rx Famotidine [Pepcid] 20 mg PO DAILY tablet 12/08/18 02/21/19 Unknown Rx Gabapentin [Neurontin] 100 mg PO QHS capsule 12/08/18 02/21/19 Unknown Rx Metoprolol [Lopressor TAB] 50 mg PO BID 30 Days tablet 12/08/18 02/21/19 Unknown Rx Sevelamer Carbonate [Renvela] 800 mg PO TIDWM tablet 12/08/18 02/21/19 Unknown Rx hydrALAZINE [Apresoline TAB] 100 mg PO Q8HR #120 tablet 12/08/18 02/21/19 Unknown Rx Acetaminophen [Acetaminophen TAB] 650 mg PO Q12H PRN 12/15/18 02/21/19 Unknown History Glucagon,Human Recombinant 1 mg IJ Q15MIN PRN 12/15/18 02/21/19 Unknown History [Glucagon Emergency Kit] Insulin Aspart [NovoLOG 100 See Protocol SQ QWEEK 12/15/18 02/21/19 Unknown History UNITS/ML VIAL] Active Medications: Generic Name Dose Route Start Last Admin Trade Name Freq PRN Reason Stop Dose Admin Acetaminophen 650 mg 02/21/19 22:19 03/18/19 04:53 Tylenol PO 650 mg Q4H PRN Administration Pain MILD(1-3)/Fever >100.5/HILL Albuterol/Ipratropium 1 ampul 02/24/19 20:00 03/19/19 14:23 Duoneb *Not For Prn Use* IH 1 ampul TIDRT SANCHEZ Administration Lipase/Protease/Amylase 1 each 03/05/19 14:04 Pancrejewel Barrientos 10,500 Unit FEEDTUBE PRN PRN For Clogged Feeding Tube Dextrose 50 ml 02/21/19 22:22 03/03/19 17:37 D50w (25gm) Syringe IV 50 ml PRN PRN Administration Hypoglycemia Epoetin Solitario 10,000 unit 03/18/19 16:13 Procrit SUB-Q UMA PRN anemia Famotidine 20 mg 02/23/19 10:00 03/19/19 10:34 Pepcid PO 20 mg DAILY SANCHEZ Administration Heparin Sodium (Porcine) 5,000 unit 03/04/19 22:00 03/19/19 10:35 Heparin SUB-Q 5,000 unit Q12HR SANCHEZ Administration Hydrophilic Ointment 1 applic 02/21/19 18:24 03/05/19 08:16 Vaseline Lip Therapy TP 1 applic Q2HR PRN Administration Dry Lips Sodium Chloride 100 mls @ 999 mls/hr 02/26/19 09:00 Nacl 0.9% IV UMA PRN Hypotension Norepinephrine 8 mg/ Sodium 250 mls @ 3.75 mls/hr 03/18/19 13:00 03/19/19 09:17 Chloride IV 0 mcg/min TITR SANCHEZ 0 mls/hr Titration Protocol 2 MCG/MIN Insulin Human Regular 0 units 02/26/19 12:00 03/19/19 06:07 Humulin R SUB-Q 1 units Q6HR SANCEHZ Administration Protocol Metoprolol Tartrate 2.5 mg 02/28/19 12:06 03/15/19 05:15 Lopressor IV 2.5 mg Q4HR PRN Administration Tachycardia Multi-Ingred Cream/Lotion/Oil/Oint 1 applic 02/21/19 18:24 Artificial Tears Ophth Oint OU Q4HR PRN Dry Eye(s) Ondansetron HCl 4 mg 02/21/19 22:19 03/12/19 21:39 Zofran IV 4 mg Q8H PRN Administration Nausea And Vomiting Risperidone 1 mg 02/25/19 13:00 03/19/19 10:34 Risperdal PO 1 mg DAILY SANCHEZ Administration Scopolamine 1 each 03/13/19 04:00 03/19/19 04:18 Transderm-Scop TD 1 each Q3D SANCHEZ Administration Sertraline HCl 100 mg 02/25/19 13:00 03/19/19 10:34 Zoloft PO 100 mg DAILY SANCHEZ Administration Simple Syrup 15 ml 03/05/19 14:04 Simple Syrup FEEDTUBE PRN PRN Hypoglycemia Simple Syrup 30 ml 03/05/19 14:04 Simple Syrup FEEDTUBE PRN PRN Hypoglycemia Sodium Bicarbonate 325 mg 03/05/19 14:04 Sodium Bicarbonate FEEDTUBE PRN PRN For Clogged Feeding Tube Sodium Chloride 10 ml 02/22/19 10:00 03/19/19 15:55 Sodium Chloride Flush Syringe 10 Ml IV 10 ml BID SANCHEZ Administration Sodium Chloride 10 ml 02/21/19 22:19 02/24/19 22:00 Sodium Chloride Flush Syringe 10 Ml IV 10 ml PRN PRN Administration LINE FLUSH Tramadol HCl 50 mg 03/05/19 10:08 03/18/19 04:38 Ultram PO 50 mg Q6H PRN Administration Pain, Moderate (4-6) Trimethoprim/Sulfamethoxazole 160 mg 03/19/19 15:00 03/19/19 15:45 Bactrim 200-40 Mg/5 Ml PO 160 mg Q24HR SANCHEZ Administration
--- NOTE | 2019-03-19 17:59 | Progress Note ---
Assessment and Plan Assessment and plan: Patient is a 63-year-old -[place] man from [facility] with a plethora of co-morbidities including blindness, CVA, CHF, PPM/ICD, loop recorder since 2012 that is MRI compatible, IDDM type 2, sepsis left foot ulcer, afib, ESRD with complications on HD TTS, hypertension, AOCD and GERD who presented to the ED with hypotensive after intubation in the emergency room. diagnosed with fluid overload, pleural effusion. Patient has had recurrent admission in the hospital for similar reason and was recently discharged from the hospital following treatment of Severe Sepsis due to Necrotizing Unstagable sacral decubitus ulcer with ostemomylitis, has received multiple courses of broad spectrum abx. Acute hypoxic respiratory failure, status post intubation and ventilatory support Acute respiratory failure on mechanical ventilator >96 hrs Extubated status post reintubation Current management , nebulizers, wean as tolerated and extubate Currently on trach/peg placed on 03/03off vent since 03/09, cont oxygen supplement, improving, on t piece, nebulizers, continue current management, again as tolerated and extubate, pulmonary critical following acute on chronc systolic CHF/ Acute pulmonary edema, HD per schedule Dilated CMP, EF 35-40% Continue diuresis, supportive care Acute metabolic encephalopathy, resolved, has baseline Dementia. ESRD on hemodialysis per schedule nephrology following Bilateral pleural effusions improved with HD Permanent atrial fibrillation and flutter and hypercoaguable state Not on anticoagulation because of anemia thrombocytopenia rate control meds optimizeds Diabetes mellitus type 2 Accu-Chek sliding scale coverage Insulin as needed NSTEMI type 2 , Cardiology following Schizophrenia Legally blind, supportive care hypertension, Monitor BP Hypokalemia; corrected Pulmonary hypertension Dysphagia s/p PEG tube Sacral decub ulcer Wound Nurse consulted Severe malnutrition /hypoalbuminemia with FTT: 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, leg breaker following PEG placed on 01/02/19 decubitus ulcer s/ post colostomy Left 5th finger, stage 4 pressure ulcer Left heel, deep tissue injury Sacrum, stage 4 pressure ulcer POA Continue wound care History of sacral osteomyelitis and LE ulcers Completed Antibiotics Place on contact isolation for ESBL Klebsiella pneumonia on wound culture 01/02/19 Schizophrenia h/o Peripheral neuropathy: Continue gabapentin Pulm HTN Anemia of chronic disease sp 1 unit of prbc , stable RUL atelectasis, probably mucous plugging DVT prophylaxis Lovenox Full code status poor prognosis DIspo; unable to be placed in ltac, unable to find any NH to take patient. REcommend inpatient hospice, but family is not agreeable at this time. Plan another family meeting and ethic consult The high probability of a clinically significant, sudden or life threatening deterioration of the [pulmonary, neuro, renal] system(s) required my full and direct attention, intervention and personal management. The aggregate critical care time was [32] minutes. This time is in addition to time spent performing reported procedures but includes the following: [x] Data Review and interpretation [x] Patient assessment and monitoring of vital signs [] Documentation [x] Medication orders and management History Interval history: Patient seen and examined and medical records reviewed Overnight events noted, Status post tracheostomy on vent Not in acute distress, legally blind Vital signs noted Hospitalist Physical - Constitutional Vitals: Temp Pulse Resp BP Pulse Ox 98.7 F 110 H 20 113/61 100 03/19/19 15:51 03/19/19 16:01 03/19/19 16:01 03/19/19 16:01 03/19/19 16:01 General appearance: Present: no acute distress, well-nourished, other (tracheostomy on vent) - EENT Eyes: Present: PERRL, EOM intact - Neck Neck: Present: supple, normal ROM - Respiratory Respiratory effort: normal Respiratory: bilateral: diminished, rhonchi, negative: rales, wheezing - Cardiovascular Rhythm: regular Heart Sounds: Present: S1 & S2 - Extremities Extremities: no ischemia, No edema - Abdominal General gastrointestinal: soft, non-tender, non-distended, normal bowel sounds - Integumentary Integumentary: Present: clear, warm - Psychiatric Psychiatric: appropriate mood/affect, cooperative - Neurologic Neurologic: CNII-XII intact, moves all extremities Results - Labs CBC & Chem 7: 03/19/19 01:11 03/15/19 04:38 Labs: Laboratory Last Values WBC 15.6 K/mm3 (4.5-11.0) H 03/19/19 01:11 RBC 2.51 M/mm3 (3.65-5.03) L 03/19/19 01:11 Hgb 6.5 gm/dl (11.8-15.2) L 03/19/19 01:11 Hct 21.6 % (35.5-45.6) L 03/19/19 01:11 MCV 86 fl (84-94) 03/19/19 01:11 MCH 26 pg (28-32) L 03/19/19 01:11 MCHC 30 % (32-34) L 03/19/19 01:11 RDW 19.8 % (13.2-15.2) H 03/19/19 01:11 Plt Count 304 K/mm3 (140-440) 03/19/19 01:11 Lymph % (Auto) 6.0 % (13.4-35.0) L 03/19/19 01:11 [place] % (Auto) 6.7 % (0.0-7.3) 03/19/19 01:11 Eos % (Auto) 1.4 % (0.0-4.3) 03/19/19 01:11 Baso % (Auto) 0.4 % (0.0-1.8) 03/19/19 01:11 Lymph # 0.9 K/mm3 (1.2-5.4) L 03/19/19 01:11 [place] # 1.0 K/mm3 (0.0-0.8) H 03/19/19 01:11 Eos # 0.2 K/mm3 (0.0-0.4) 03/19/19 01:11 Baso # 0.1 K/mm3 (0.0-0.1) 03/19/19 01:11 Seg Neutrophils % 85.5 % (40.0-70.0) H 03/19/19 01:11 Seg Neutrophils # 13.4 K/mm3 (1.8-7.7) H 03/19/19 01:11 PT 16.3 Sec. (12.2-14.9) H 03/01/19 09:39 INR 1.35 (0.87-1.13) H 03/01/19 09:39 APTT 33.7 Sec. (24.2-36.6) 02/21/19 18:30 2987.82 ng/mlDDU (0-234) H 02/22/19 05:54 POC ABG pH 7.510 (7.35-7.45) H 03/18/19 06:38 ABG pH 7.424 pH Units (7.350-7.450) 03/19/19 04:23 POC ABG pCO2 38.9 (35-45) 03/18/19 06:38 ABG pCO2 48.0 mm Hg 03/19/19 04:23 POC ABG pO2 164 (80-105) H 03/18/19 06:38 ABG pO2 78.3 mm Hg (80.0-90.0) L 03/19/19 04:23 POC ABG HCO3 31.0 (22-26 mml/L) 03/18/19 06:38 ABG HCO3 30.7 mmol/L (20.0-26.0) H 03/19/19 04:23 POC ABG Total CO2 32 (23-27mmol/L) 03/18/19 06:38 POC ABG O2 Sat 100 03/18/19 06:38 ABG O2 Saturation 97.0 % (95.0-99.0) 03/19/19 04:23 ABG O2 Content 7.9 (0.0-44) 03/19/19 04:23 POC ABG Base Excess 8 ((-2) - (+3)mmol/L) 03/18/19 06:38 ABG Base Excess 5.8 mmol/L (-2.0-3.0) H 03/19/19 04:23 ABG Hemoglobin 5.8 gm/dl (14.0-18.0) L 03/19/19 04:23 ABG Carboxyhemoglobin 2.0 % (0.0-5.0) 03/19/19 04:23 ABG Methemoglobin 0.4 % (0.0-1.5) 03/19/19 04:23 94.6 % (95.0-99.0) L 03/19/19 04:23 35 % 03/19/19 04:23 Sodium 135 mmol/L (137-145) L 03/15/19 04:38 Potassium 5.0 mmol/L (3.6-5.0) 03/15/19 04:38 Chloride 91.9 mmol/L (98-107) L 03/15/19 04:38 Carbon Dioxide 29 mmol/L (22-30) 03/15/19 04:38 19 mmol/L 03/15/19 04:38 BUN 54 mg/dL (9-20) H 03/15/19 04:38 2.8 mg/dL (0.8-1.5) H 03/15/19 04:38 Estimated GFR 28 ml/min 03/15/19 04:38 19 % 03/15/19 04:38 Glucose 128 mg/dL (75-100) H 03/15/19 04:38 POC Glucose 167 (70-105) H 03/19/19 12:36 Lactic Acid 1.00 mmol/L (0.7-2.0) 02/21/19 20:58 Calcium 11.1 mg/dL (8.4-10.2) H 03/15/19 04:38 Phosphorus 3.10 mg/dL (2.5-4.5) 03/15/19 04:38 Magnesium 2.30 mg/dL (1.7-2.3) 03/15/19 04:38 0.30 mg/dL (0.1-1.2) 03/15/19 04:38 AST 14 units/L (5-40) 03/15/19 04:38 ALT 9 units/L (7-56) 03/15/19 04:38 161 units/L (35-129) H 03/15/19 04:38 28.0 umol/L (25-60) 02/21/19 20:04 64 units/L (55-170) 02/22/19 03:42 CK-MB (CK-2) 3.7 ng/mL (0.0-4.0) 02/22/19 03:42 CK-MB (CK-2) Rel Index 5.7 (0-4) H 02/22/19 03:42 0.193 ng/mL (0.00-0.029) H* 02/22/19 03:42 7.4 g/dL (6.3-8.2) 03/15/19 04:38 2.3 g/dL (3.9-5) L 03/15/19 04:38 0.5 % 03/15/19 04:38 Triglycerides 51 mg/dL (2-149) 02/21/19 18:30 Cholesterol 82 mg/dL (50-199) 02/21/19 18:30 36 mg/dL (50-130) L 02/21/19 18:30 40 mg/dL (40-59) 02/21/19 18:30 2.05 % 02/21/19 18:30 TSH 2.760 mlU/mL (0.270-4.200) 02/21/19 20:04 PTH Intact 267.6 pg/mL (15-65) H 03/02/19 05:15 Salicylates < 0.3 mg/dL (2.8-20.0) L 02/21/19 20:04 Acetaminophen < 5.0 ug/mL (10.0-30.0) L 02/21/19 20:04 Hepatitis A IgM Ab Non-reactive (NonReactive) 02/23/19 11:20 Hep Bs Antigen Non-reactive (Negative) 02/23/19 11:20 Hep B Core IgM Ab Non-reactive (NonReactive) 02/23/19 11:20 Non-reactive (NonReactive) 02/23/19 11:20 Blood Type O POSITIVE 03/19/19 08:54 Antibody Screen Negative 03/19/19 08:54 Crossmatch See Detail 03/19/19 08:54 Active Medications - Current Medications Current Medications: Generic Name Dose Route Start Last Admin Trade Name Freq PRN Reason Stop Dose Admin Acetaminophen 650 mg 02/21/19 22:19 03/18/19 04:53 Tylenol PO 650 mg Q4H PRN Administration Pain MILD(1-3)/Fever >100.5/HILL Albuterol/Ipratropium 1 ampul 02/24/19 20:00 03/19/19 14:23 Duoneb *Not For Prn Use* IH 1 ampul TIDRT SANCHEZ Administration Lipase/Protease/Amylase 1 each 03/05/19 14:04 Pancrejewel Barrientos 10,500 Unit FEEDTUBE PRN PRN For Clogged Feeding Tube Dextrose 50 ml 02/21/19 22:22 03/03/19 17:37 D50w (25gm) Syringe IV 50 ml PRN PRN Administration Hypoglycemia Epoetin Solitario 10,000 unit 03/18/19 16:13 Procrit SUB-Q UMA PRN anemia Famotidine 20 mg 02/23/19 10:00 03/19/19 10:34 Pepcid PO 20 mg DAILY SANCHEZ Administration Heparin Sodium (Porcine) 5,000 unit 03/04/19 22:00 03/19/19 10:35 Heparin SUB-Q 5,000 unit Q12HR SANCHEZ Administration Hydrophilic Ointment 1 applic 02/21/19 18:24 03/05/19 08:16 Vaseline Lip Therapy TP 1 applic Q2HR PRN Administration Dry Lips Sodium Chloride 100 mls @ 999 mls/hr 02/26/19 09:00 Nacl 0.9% IV UMA PRN Hypotension Norepinephrine 8 mg/ Sodium 250 mls @ 3.75 mls/hr 03/18/19 13:00 03/19/19 09:17 Chloride IV 0 mcg/min TITR SANCHEZ 0 mls/hr Titration Protocol 2 MCG/MIN Insulin Human Regular 0 units 02/26/19 12:00 03/19/19 06:07 Humulin R SUB-Q 1 units Q6HR SANCHEZ Administration Protocol Metoprolol Tartrate 2.5 mg 02/28/19 12:06 03/15/19 05:15 Lopressor IV 2.5 mg Q4HR PRN Administration Tachycardia Multi-Ingred Cream/Lotion/Oil/Oint 1 applic 02/21/19 18:24 Artificial Tears Ophth Oint OU Q4HR PRN Dry Eye(s) Ondansetron HCl 4 mg 02/21/19 22:19 03/12/19 21:39 Zofran IV 4 mg Q8H PRN Administration Nausea And Vomiting Risperidone 1 mg 02/25/19 13:00 03/19/19 10:34 Risperdal PO 1 mg DAILY SANCEHZ Administration Scopolamine 1 each 03/13/19 04:00 03/19/19 04:18 Transderm-Scop TD 1 each Q3D SANCHEZ Administration Sertraline HCl 100 mg 02/25/19 13:00 03/19/19 10:34 Zoloft PO 100 mg DAILY SANCHEZ Administration Simple Syrup 15 ml 03/05/19 14:04 Simple Syrup FEEDTUBE PRN PRN Hypoglycemia Simple Syrup 30 ml 03/05/19 14:04 Simple Syrup FEEDTUBE PRN PRN Hypoglycemia Sodium Bicarbonate 325 mg 03/05/19 14:04 Sodium Bicarbonate FEEDTUBE PRN PRN For Clogged Feeding Tube Sodium Chloride 10 ml 02/22/19 10:00 03/19/19 15:55 Sodium Chloride Flush Syringe 10 Ml IV 10 ml BID SANCHEZ Administration Sodium Chloride 10 ml 02/21/19 22:19 02/24/19 22:00 Sodium Chloride Flush Syringe 10 Ml IV 10 ml PRN PRN Administration LINE FLUSH Tramadol HCl 50 mg 03/05/19 10:08 03/18/19 04:38 Ultram PO 50 mg Q6H PRN Administration Pain, Moderate (4-6) Trimethoprim/Sulfamethoxazole 160 mg 03/19/19 15:00 03/19/19 15:45 Bactrim 200-40 Mg/5 Ml PO 160 mg Q24HR SANCHEZ Administration Nutrition/Malnutrition Assess - Dietary Evaluation Nutrition/Malnutrition Findings: Nutrition Notes Start: 02/22/19 12:51 Freq: Status: Active Protocol: Document 03/19/19 11:10 LM (Rec: 03/19/19 11:17 LM [email or web address]) Nutrition Notes Initial or Follow up Reassessment Current Diagnosis Diabetes,Hypertension Other Pertinent Diagnosis Sacral PU, ESRD on HD (T/Thurs /Sat), Schizophrenia,Blind in L eye,S/P trach Current Diet Vital AF 1.2 at 70 ml/hr Labs/Tests Reviewed Pertinent Medications Humulin Height 5 ft 10 in Weight 88.75 kg [place] Body Weight (kg) 75.45 BMI 28.0 Subjective/Other Information Vital AF running 75 ml/hr at time of visit. Pt toleating TF . Percent of energy/protein needs met: 100%/100% Burn Absent Trauma Absent #2 Nutrition Diagnosis Increased nutrient needs ( specify in comment below) Diagnosis Progress(for reassessment Continues documentation) #1 Nutrition Diagnosis Inadequate oral intake Diagnosis Progress(for reassessment Continues documentation) Is patient on ventilator? Yes Is Patient Ambulatory and/or Out of Bed No REE-([facility]-confined to bed) 2024.576 Kcal/Kg value to use for calculation 18 Approximate Energy Requirements Using 1598 kcal/Kg Calculation Used for Recommendations Kcal/kg Additional Notes Protein Needs: 106-177g (1.2- 2g/kg) Fluid Needs: 1 ml/kcal Nutrition Intervention Change Diet Order: Continue TF Nutrition Support: Vital 1.2 at 70 ml/hr Water flush of 100 mls q 4 hrs Kcal 2,016 Protein (gm) 126 Fluid (mL) 1,362 Add Supplement/Snack (indicate name/kcal Abhilash BID /protein ) Provides kCal: 190 Provides Protein (gm) 5 Goal #1 TF tolerance Goal #2 Continue to meet at least 80% of calorie and protein needs via TF Anticipated Discharge Needs: Unable to determine at this time Follow-Up By: 03/26/19 Additional Comments F/U for TF rate/tolerance
--- NOTE | 2019-03-20 02:51 | XRay Report ---
CHEST 1 VIEW INDICATION: follow up respiratory failure. COMPARISON: Previous day. FINDINGS: Support devices: Tracheostomy catheter and central line unchanged. Heart: Stable cardiomegaly. Lungs/Pleura: Localized infiltrate left chest and right base. Aeration is improved as has edema. Left -sided pneumonia is mildly improved. Additional findings: None. IMPRESSION: 1. Improving edema, aeration in left-sided pneumonia. 2. Developing pneumonia right base. Signer Name: Paco Nguyen MD Signed: 03/20/2019 2:47 AM Workstation Name: [id number]
[2019-03-20 04:46] LABS: ABG Base Excess 2.9 mmol/L (-2.0-3.0); ABG HCO3 28.3 mmol/L (20.0-26.0); ABG Methemoglobin 0.6 % (0.0-1.5); ABG Oxygen Saturation 97.7 % (95.0-99.0); ABG PCO2 47.3 mm Hg; ABG PH 7.396 pH Units (7.350-7.450); ABG PO2 102.8 mm Hg (80.0-90.0)
[2019-03-20] MEDS: INSULIN REGULAR, HUMAN 100 UNITS/1 ML SUB-Q SCH ×4 (04:50→19:16)
[2019-03-20] MEDS: IPRATROPIUM/ALBUTEROL SULFATE 3 ML AMPUL.NEB IH SCH ×3 (08:30→20:03)
[2019-03-20 09:12] LABS: Calcium 10.5 mg/dL (8.4-10.2)
[2019-03-20 09:13] LABS: Basophils % (Auto) 0.5 % (0.0-1.8); Eosinophils # (Auto) 0.5 K/mm3 (0.0-0.4); Eosinophils % (Auto) 5.7 % (0.0-4.3); Hemoglobin 7.1 gm/dl (11.8-15.2); Lymphocytes # (Auto) 0.8 K/mm3 (1.2-5.4); Lymphocytes % (Auto) 8.2 % (13.4-35.0); Mean Corpuscular HGB Conc 32 % (32-34); Mean Corpuscular Volume 84 fl (84-94); Monocytes # (Auto) 0.8 K/mm3 (0.0-0.8); Monocytes % (Auto) 8.3 % (0.0-7.3); Platelet Count 282 K/mm3 (140-440); Red Blood Count 2.61 M/mm3 (3.65-5.03); Red Cell Distribution Width 19.6 % (13.2-15.2)
[2019-03-20] MEDS: FAMOTIDINE 20 MG TAB PO SCH (09:58)
[2019-03-20] MEDS: risperiDONE 1 MG TAB PO SCH (09:58)
[2019-03-20] MEDS: HEPARIN 5,000 UNIT/1 ML VIAL SUB-Q SCH ×2 (09:58→21:04)
[2019-03-20] MEDS: SULFAMETHOXAZOLE/TRIMETHOPRIM 200-40 MG/5 ML ORAL LIQD 30 ML PO SCH (09:58)
[2019-03-20] MEDS: SERTRALINE 100 MG TAB PO SCH (09:58)
--- NOTE | 2019-03-20 10:54 | Progress Note ---
Assessment and Plan Assessment and plan: 63-year-old -[place] male patient from [facility] with multiple co- morbidities including blindness, CVA, CHF, PPM/ICD, loop recorder since 2012 that is MRI compatible, IDDM type 2, sepsis left foot ulcer, afib, ESRD with complications on HD TTS, hypertension, AOCD and GERD who presented to the ED with hypotensive after intubation in the emergency room. diagnosed with fluid overload, pleural effusion. Patient has had recurrent admission in the hospital for similar reason and was recently discharged from the hospital following treatment of Severe Sepsis due to Necrotizing Unstagable sacral decubitus ulcer with ostemomylitis, has received multiple courses of broad spectrum abx. Acute hypoxic respiratory failure, status post intubation and ventilatory support Acute respiratory failure on mechanical ventilator >96 hrs Extubated ; history of tracheostomy on T piece Current management , nebulizers, Currently on trach/peg placed on 03/03off vent since 03/09, cont oxygen supplement, improving, on t piece, nebulizers, extubated, pulmonary critical following acute on chronc systolic CHF/ Acute pulmonary edema, HD per schedule Dilated CMP, EF 35-40% Continue diuresis, supportive care Acute metabolic encephalopathy, resolved, has baseline Dementia. --ESRD on hemodialysis per schedule nephrology following --Bilateral pleural effusions improved with HD --Permanent atrial fibrillation and flutter and hypercoaguable state Not on anticoagulation because of anemia thrombocytopenia rate control meds optimizeds --Diabetes mellitus type 2 Accu-Chek sliding scale coverage Insulin as needed --NSTEMI type 2 , Cardiology following --Schizophrenia:stable --Legally blind, supportive care --hypertension, Monitor BP,'s adjust medications as needed --Hypokalemia; corrected --Pulmonary hypertension; continue current management --Dysphagia s/p PEG tube; PEG tubes per protocol --Sacral decub ulcer; Wound care --Severe malnutrition /hypoalbuminemia with FTT: 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, vp of product following PEG placed on 01/02/19 --Multiple decubiti, different stages , s/ p colostomy Left 5th finger, stage 4 pressure ulcer Left heel, deep tissue injury Sacrum, stage 4 pressure ulcer POA Continue wound care --History of sacral osteomyelitis and LE ulcers Completed Antibiotics, contact isolation for ESBL Klebsiella pneumonia on wound culture 01/02/19 --Anemia of chronic disease sp 1 unit of prbc , stable --RUL atelectasis, probably mucous plugging --DVT prophylaxis; Lovenox --Full code status --Very poor prognosis DIspo; awaiting placement , difficult to place ,unable to find any NH to take patient. REcommend inpatient hospice, but family is not agreeable at this time. family meeting and ethic consult has needed The high probability of a clinically significant, sudden or life threatening deterioration of the [pulmonary, neuro, renal] system(s) required my full and direct attention, intervention and personal management. The aggregate critical care time was [32] minutes. This time is in addition to time spent performing reported procedures but includes the following: [x] Data Review and interpretation [x] Patient assessment and monitoring of vital signs [] Documentation [x] Medication orders and management History Interval history: Patient seen and examined medical records reviewed Patient status post tracheostomy on T piece Legally blind, hard in acute distress Vital signs noted Hospitalist Physical - Constitutional Vitals: Temp Pulse Resp BP Pulse Ox 98.4 F 110 H 28 H 119/64 97 03/20/19 08:00 03/20/19 10:01 03/20/19 10:01 03/20/19 10:01 03/20/19 10:01 General appearance: Present: no acute distress, well-nourished, other (tracheostomy on T piece) - EENT Eyes: Present: PERRL, EOM intact ENT: hearing intact, clear oral mucosa - Neck Neck: Present: supple, normal ROM - Respiratory Respiratory effort: normal Respiratory: bilateral: diminished, negative: rales, rhonchi, wheezing - Cardiovascular Rhythm: regular Heart Sounds: Present: S1 & S2 - Extremities Extremities: no ischemia, No edema Peripheral Pulses: within normal limits - Abdominal General gastrointestinal: soft, non-tender, non-distended, normal bowel sounds - Integumentary Integumentary: Present: clear, warm - Psychiatric Psychiatric: other (when medically communicative) - Neurologic Neurologic: other (legally blind, noncommunicative) Results - Labs CBC & Chem 7: 03/20/19 08:40 03/20/19 08:40 Labs: Laboratory Last Values WBC 9.5 K/mm3 (4.5-11.0) 03/20/19 08:40 RBC 2.61 M/mm3 (3.65-5.03) L 03/20/19 08:40 Hgb 7.1 gm/dl (11.8-15.2) L 03/20/19 08:40 Hct 22.0 % (35.5-45.6) L 03/20/19 08:40 MCV 84 fl (84-94) 03/20/19 08:40 MCH 27 pg (28-32) L 03/20/19 08:40 MCHC 32 % (32-34) 03/20/19 08:40 RDW 19.6 % (13.2-15.2) H 03/20/19 08:40 Plt Count 282 K/mm3 (140-440) 03/20/19 08:40 Lymph % (Auto) 8.2 % (13.4-35.0) L 03/20/19 08:40 Graves % (Auto) 8.3 % (0.0-7.3) H 03/20/19 08:40 Eos % (Auto) 5.7 % (0.0-4.3) H 03/20/19 08:40 Baso % (Auto) 0.5 % (0.0-1.8) 03/20/19 08:40 Lymph # 0.8 K/mm3 (1.2-5.4) L 03/20/19 08:40 Graves # 0.8 K/mm3 (0.0-0.8) 03/20/19 08:40 Eos # 0.5 K/mm3 (0.0-0.4) H 03/20/19 08:40 Baso # 0.0 K/mm3 (0.0-0.1) 03/20/19 08:40 Seg Neutrophils % 77.3 % (40.0-70.0) H 03/20/19 08:40 Seg Neutrophils # 7.3 K/mm3 (1.8-7.7) 03/20/19 08:40 PT 16.3 Sec. (12.2-14.9) H 03/01/19 09:39 INR 1.35 (0.87-1.13) H 03/01/19 09:39 APTT 33.7 Sec. (24.2-36.6) 02/21/19 18:30 2987.82 ng/mlDDU (0-234) H 02/22/19 05:54 POC ABG pH 7.510 (7.35-7.45) H 03/18/19 06:38 ABG pH 7.424 pH Units (7.350-7.450) 03/19/19 04:23 POC ABG pCO2 38.9 (35-45) 03/18/19 06:38 ABG pCO2 48.0 mm Hg 03/19/19 04:23 POC ABG pO2 164 (80-105) H 03/18/19 06:38 ABG pO2 78.3 mm Hg (80.0-90.0) L 03/19/19 04:23 POC ABG HCO3 31.0 (22-26 mml/L) 03/18/19 06:38 ABG HCO3 30.7 mmol/L (20.0-26.0) H 03/19/19 04:23 POC ABG Total CO2 32 (23-27mmol/L) 03/18/19 06:38 POC ABG O2 Sat 100 03/18/19 06:38 ABG O2 Saturation 97.0 % (95.0-99.0) 03/19/19 04:23 ABG O2 Content 7.9 (0.0-44) 03/19/19 04:23 POC ABG Base Excess 8 ((-2) - (+3)mmol/L) 03/18/19 06:38 ABG Base Excess 5.8 mmol/L (-2.0-3.0) H 03/19/19 04:23 ABG Hemoglobin 5.8 gm/dl (14.0-18.0) L 03/19/19 04:23 ABG Carboxyhemoglobin 2.0 % (0.0-5.0) 03/19/19 04:23 ABG Methemoglobin 0.4 % (0.0-1.5) 03/19/19 04:23 94.6 % (95.0-99.0) L 03/19/19 04:23 35 % 03/19/19 04:23 Sodium 139 mmol/L (137-145) 03/20/19 08:40 Potassium 4.5 mmol/L (3.6-5.0) 03/20/19 08:40 Chloride 95.9 mmol/L (98-107) L 03/20/19 08:40 Carbon Dioxide 29 mmol/L (22-30) 03/20/19 08:40 19 mmol/L 03/20/19 08:40 BUN 69 mg/dL (9-20) H 03/20/19 08:40 2.8 mg/dL (0.8-1.5) H 03/20/19 08:40 Estimated GFR 28 ml/min 03/20/19 08:40 25 % 03/20/19 08:40 Glucose 115 mg/dL (75-100) H 03/20/19 08:40 POC Glucose 134 (70-105) H 03/20/19 05:38 Lactic Acid 1.00 mmol/L (0.7-2.0) 02/21/19 20:58 Calcium 10.5 mg/dL (8.4-10.2) H 03/20/19 08:40 Phosphorus 3.10 mg/dL (2.5-4.5) 03/15/19 04:38 Magnesium 2.30 mg/dL (1.7-2.3) 03/15/19 04:38 0.30 mg/dL (0.1-1.2) 03/15/19 04:38 AST 14 units/L (5-40) 03/15/19 04:38 ALT 9 units/L (7-56) 03/15/19 04:38 161 units/L (35-129) H 03/15/19 04:38 28.0 umol/L (25-60) 02/21/19 20:04 64 units/L (55-170) 02/22/19 03:42 CK-MB (CK-2) 3.7 ng/mL (0.0-4.0) 02/22/19 03:42 CK-MB (CK-2) Rel Index 5.7 (0-4) H 02/22/19 03:42 0.193 ng/mL (0.00-0.029) H* 02/22/19 03:42 7.4 g/dL (6.3-8.2) 03/15/19 04:38 2.3 g/dL (3.9-5) L 03/15/19 04:38 0.5 % 03/15/19 04:38 Triglycerides 51 mg/dL (2-149) 02/21/19 18:30 Cholesterol 82 mg/dL (50-199) 02/21/19 18:30 36 mg/dL (50-130) L 02/21/19 18:30 40 mg/dL (40-59) 02/21/19 18:30 2.05 % 02/21/19 18:30 TSH 2.760 mlU/mL (0.270-4.200) 02/21/19 20:04 PTH Intact 267.6 pg/mL (15-65) H 03/02/19 05:15 Salicylates < 0.3 mg/dL (2.8-20.0) L 02/21/19 20:04 Acetaminophen < 5.0 ug/mL (10.0-30.0) L 02/21/19 20:04 Hepatitis A IgM Ab Non-reactive (NonReactive) 02/23/19 11:20 Hep Bs Antigen Non-reactive (Negative) 02/23/19 11:20 Hep B Core IgM Ab Non-reactive (NonReactive) 02/23/19 11:20 Non-reactive (NonReactive) 02/23/19 11:20 Blood Type O POSITIVE 03/19/19 08:54 Antibody Screen Negative 03/19/19 08:54 Crossmatch See Detail 03/19/19 08:54 Active Medications - Current Medications Current Medications: Generic Name Dose Route Start Last Admin Trade Name Freq PRN Reason Stop Dose Admin Acetaminophen 650 mg 02/21/19 22:19 03/18/19 04:53 Tylenol PO 650 mg Q4H PRN Administration Pain MILD(1-3)/Fever >100.5/HILL Albuterol/Ipratropium 1 ampul 02/24/19 20:00 03/20/19 08:30 Duoneb *Not For Prn Use* IH 1 ampul TIDRT SANCHEZ Administration Lipase/Protease/Amylase 1 each 03/05/19 14:04 Pancrejewel Barrientos 10,500 Unit FEEDTUBE PRN PRN For Clogged Feeding Tube Dextrose 50 ml 02/21/19 22:22 03/03/19 17:37 D50w (25gm) Syringe IV 50 ml PRN PRN Administration Hypoglycemia Epoetin Solitario 10,000 unit 03/18/19 16:13 Procrit SUB-Q UMA PRN anemia Famotidine 20 mg 02/23/19 10:00 08/30/19 09:58 Pepcid PO 20 mg DAILY SANCHEZ Administration Heparin Sodium (Porcine) 5,000 unit 03/04/19 22:00 03/20/19 09:58 Heparin SUB-Q 5,000 unit Q12HR SANCHEZ Administration Hydrophilic Ointment 1 applic 02/21/19 18:24 03/05/19 08:16 Vaseline Lip Therapy TP 1 applic Q2HR PRN Administration Dry Lips Sodium Chloride 100 mls @ 999 mls/hr 02/26/19 09:00 Nacl 0.9% IV UMA PRN Hypotension Norepinephrine 8 mg/ Sodium 250 mls @ 3.75 mls/hr 03/18/19 13:00 03/19/19 09:17 Chloride IV 0 mcg/min TITR SANCHEZ 0 mls/hr Titration Protocol 2 MCG/MIN Insulin Human Regular 0 units 02/26/19 12:00 03/20/19 04:50 Humulin R SUB-Q Not Given Q6HR SANCHEZ Protocol Metoprolol Tartrate 2.5 mg 02/28/19 12:06 03/15/19 05:15 Lopressor IV 2.5 mg Q4HR PRN Administration Tachycardia Multi-Ingred Cream/Lotion/Oil/Oint 1 applic 02/21/19 18:24 Artificial Tears Ophth Oint OU Q4HR PRN Dry Eye(s) Ondansetron HCl 4 mg 02/21/19 22:19 03/12/19 21:39 Zofran IV 4 mg Q8H PRN Administration Nausea And Vomiting Risperidone 1 mg 02/25/19 13:00 03/20/19 09:58 Risperdal PO 1 mg DAILY SANCHEZ Administration Scopolamine 1 each 03/13/19 04:00 03/19/19 04:18 Transderm-Scop TD 1 each Q3D SANCHEZ Administration Sertraline HCl 100 mg 02/25/19 13:00 03/20/19 09:58 Zoloft PO 100 mg DAILY SANCHEZ Administration Simple Syrup 15 ml 03/05/19 14:04 Simple Syrup FEEDTUBE PRN PRN Hypoglycemia Simple Syrup 30 ml 03/05/19 14:04 Simple Syrup FEEDTUBE PRN PRN Hypoglycemia Sodium Bicarbonate 325 mg 03/05/19 14:04 Sodium Bicarbonate FEEDTUBE PRN PRN For Clogged Feeding Tube Sodium Chloride 10 ml 02/22/19 10:00 08/30/19 09:59 Sodium Chloride Flush Syringe 10 Ml IV 10 ml BID SANCHEZ Administration Sodium Chloride 10 ml 02/21/19 22:19 02/24/19 22:00 Sodium Chloride Flush Syringe 10 Ml IV 10 ml PRN PRN Administration LINE FLUSH Tramadol HCl 50 mg 03/05/19 10:08 03/18/19 04:38 Ultram PO 50 mg Q6H PRN Administration Pain, Moderate (4-6) Trimethoprim/Sulfamethoxazole 160 mg 03/19/19 15:00 03/20/19 09:58 Bactrim 200-40 Mg/5 Ml PO 160 mg Q24HR SANCHEZ Administration Nutrition/Malnutrition Assess - Dietary Evaluation Nutrition/Malnutrition Findings: Nutrition Notes Start: 02/22/19 12:51 Freq: Status: Active Protocol: Document 03/19/19 11:10 LM (Rec: 03/19/19 11:17 LM [email or web address]) Nutrition Notes Initial or Follow up Reassessment Current Diagnosis Diabetes,Hypertension Other Pertinent Diagnosis Sacral PU, ESRD on HD (T/Thurs /Sat), Schizophrenia,Blind in L eye,S/P trach Current Diet Vital AF 1.2 at 70 ml/hr Labs/Tests Reviewed Pertinent Medications Humulin Height 5 ft 10 in Weight 88.75 kg [place] Body Weight (kg) 75.45 BMI 28.0 Subjective/Other Information Vital AF running 75 ml/hr at time of visit. Pt toleating TF . Percent of energy/protein needs met: 100%/100% Burn Absent Trauma Absent #2 Nutrition Diagnosis Increased nutrient needs ( specify in comment below) Diagnosis Progress(for reassessment Continues documentation) #1 Nutrition Diagnosis Inadequate oral intake Diagnosis Progress(for reassessment Continues documentation) Is patient on ventilator? Yes Is Patient Ambulatory and/or Out of Bed No REE-([facility]-confined to bed) 2024.576 Kcal/Kg value to use for calculation 18 Approximate Energy Requirements Using 1598 kcal/Kg Calculation Used for Recommendations Kcal/kg Additional Notes Protein Needs: 106-177g (1.2- 2g/kg) Fluid Needs: 1 ml/kcal Nutrition Intervention Change Diet Order: Continue TF Nutrition Support: Vital 1.2 at 70 ml/hr Water flush of 100 mls q 4 hrs Kcal 2,016 Protein (gm) 126 Fluid (mL) 1,362 Add Supplement/Snack (indicate name/kcal Abhilash BID /protein ) Provides kCal: 190 Provides Protein (gm) 5 Goal #1 TF tolerance Goal #2 Continue to meet at least 80% of calorie and protein needs via TF Anticipated Discharge Needs: Unable to determine at this time Follow-Up By: 03/26/19 Additional Comments F/U for TF rate/tolerance
--- NOTE | 2019-03-20 12:18 | Progress Note ---
Assessment and Plan 63 y/o male with multiple medical issues admitted with altered mental status, acute respiratory failure requiring mechanical ventilation 1. Multi resistant acinetobacter found in sputum. ID aware. Plan in place. Likely secondary from multiple hospital stays with multiple courses of abx. 2. Placement on hold now given acute clinical change 3. If patient spikes another temp, will need repeat blood cultures. Does not make urine. 4. T-piece now and if lasts for the next 24 hours will transfer back to [facility] CCT 31 minutes. Subjective Date of service: 03/20/19 Principal diagnosis: respiratory failure Interval history: No acute events. On T-piece now and tolerating. Objective Vital Signs - 12hr 03/20/19 03/20/19 03/20/19 00:15 00:31 00:45 Temperature Pulse Rate 98 H 103 H 109 H Pulse Rate [ Anterior Bilateral Throughout] Pulse Rate [ From Monitor] Respiratory 19 22 20 Rate Respiratory Rate [Anterior Bilateral Throughout] Blood Pressure 108/57 117/60 108/72 O2 Sat by Pulse 100 100 100 Oximetry O2 Sat by Pulse Oximetry [ Assessment] 03/20/19 03/20/19 03/20/19 01:01 01:15 01:30 Temperature Pulse Rate 106 H 99 H 109 H Pulse Rate [ Anterior Bilateral Throughout] Pulse Rate [ From Monitor] Respiratory 17 21 27 H Rate Respiratory Rate [Anterior Bilateral Throughout] Blood Pressure 109/74 109/74 113/67 O2 Sat by Pulse 100 100 100 Oximetry O2 Sat by Pulse Oximetry [ Assessment] 03/20/19 03/20/19 03/20/19 01:45 02:00 02:15 Temperature Pulse Rate 108 H 99 H 97 H Pulse Rate [ Anterior Bilateral Throughout] Pulse Rate [ From Monitor] Respiratory 24 26 H 14 Rate Respiratory Rate [Anterior Bilateral Throughout] Blood Pressure 113/67 112/66 112/68 O2 Sat by Pulse 100 100 100 Oximetry O2 Sat by Pulse Oximetry [ Assessment] 03/20/19 03/20/19 03/20/19 02:30 02:45 03:00 Temperature Pulse Rate 104 H 103 H 105 H Pulse Rate [ Anterior Bilateral Throughout] Pulse Rate [ From Monitor] Respiratory 17 23 16 Rate Respiratory Rate [Anterior Bilateral Throughout] Blood Pressure 116/72 112/66 118/70 O2 Sat by Pulse 100 100 100 Oximetry O2 Sat by Pulse Oximetry [ Assessment] 03/20/19 03/20/19 03/20/19 03:15 03:30 03:45 Temperature Pulse Rate 101 H 95 H 115 H Pulse Rate [ Anterior Bilateral Throughout] Pulse Rate [ From Monitor] Respiratory 21 18 24 Rate Respiratory Rate [Anterior Bilateral Throughout] Blood Pressure 106/71 111/65 111/65 O2 Sat by Pulse 100 100 100 Oximetry O2 Sat by Pulse Oximetry [ Assessment] 03/20/19 03/20/19 03/20/19 03:47 04:00 04:01 Temperature 98.4 F Pulse Rate 100 H 103 H Pulse Rate [ Anterior Bilateral Throughout] Pulse Rate [ 108 H From Monitor] Respiratory 15 Rate Respiratory Rate [Anterior Bilateral Throughout] Blood Pressure 114/55 O2 Sat by Pulse 100 Oximetry O2 Sat by Pulse Oximetry [ Assessment] 03/20/19 03/20/19 03/20/19 04:15 04:31 04:45 Temperature Pulse Rate 102 H 103 H 104 H Pulse Rate [ Anterior Bilateral Throughout] Pulse Rate [ From Monitor] Respiratory 17 18 21 Rate Respiratory Rate [Anterior Bilateral Throughout] Blood Pressure 114/55 108/62 121/65 O2 Sat by Pulse 100 100 100 Oximetry O2 Sat by Pulse Oximetry [ Assessment] 03/20/19 03/20/19 03/20/19 05:00 05:01 05:02 Temperature Pulse Rate 102 H 102 H Pulse Rate [ Anterior Bilateral Throughout] Pulse Rate [ From Monitor] Respiratory 22 Rate Respiratory Rate [Anterior Bilateral Throughout] Blood Pressure 120/83 120/83 O2 Sat by Pulse 100 100 Oximetry O2 Sat by Pulse 100 Oximetry [ Assessment] 03/20/19 03/20/19 03/20/19 05:15 05:31 05:45 Temperature Pulse Rate 99 H 104 H 97 H Pulse Rate [ Anterior Bilateral Throughout] Pulse Rate [ From Monitor] Respiratory 25 H 20 18 Rate Respiratory Rate [Anterior Bilateral Throughout] Blood Pressure 120/83 117/67 117/67 O2 Sat by Pulse 100 100 100 Oximetry O2 Sat by Pulse Oximetry [ Assessment] 03/20/19 03/20/19 03/20/19 06:00 06:15 06:31 Temperature Pulse Rate 103 H 101 H 100 H Pulse Rate [ Anterior Bilateral Throughout] Pulse Rate [ From Monitor] Respiratory 15 22 18 Rate Respiratory Rate [Anterior Bilateral Throughout] Blood Pressure 116/69 116/69 115/47 O2 Sat by Pulse 100 100 100 Oximetry O2 Sat by Pulse Oximetry [ Assessment] 03/20/19 03/20/19 03/20/19 06:45 07:00 07:15 Temperature Pulse Rate 91 H 108 H 106 H Pulse Rate [ Anterior Bilateral Throughout] Pulse Rate [ From Monitor] Respiratory 21 18 19 Rate Respiratory Rate [Anterior Bilateral Throughout] Blood Pressure 115/47 113/54 113/54 O2 Sat by Pulse 100 100 100 Oximetry O2 Sat by Pulse Oximetry [ Assessment] 03/20/19 03/20/19 03/20/19 07:30 07:45 08:00 Temperature 98.4 F Pulse Rate 101 H 95 H 105 H Pulse Rate [ Anterior Bilateral Throughout] Pulse Rate [ From Monitor] Respiratory 17 17 Rate Respiratory Rate [Anterior Bilateral Throughout] Blood Pressure 113/60 113/60 O2 Sat by Pulse 100 100 Oximetry O2 Sat by Pulse Oximetry [ Assessment] 03/20/19 03/20/19 03/20/19 08:01 08:15 08:30 Temperature Pulse Rate 101 H 100 H 103 H Pulse Rate [ 101 H Anterior Bilateral Throughout] Pulse Rate [ From Monitor] Respiratory 23 19 17 Rate Respiratory 22 Rate [Anterior Bilateral Throughout] Blood Pressure 121/78 121/78 116/64 O2 Sat by Pulse 100 100 100 Oximetry O2 Sat by Pulse Oximetry [ Assessment] 03/20/19 03/20/19 03/20/19 08:45 09:01 09:15 Temperature Pulse Rate 96 H 103 H 106 H Pulse Rate [ Anterior Bilateral Throughout] Pulse Rate [ From Monitor] Respiratory 15 23 15 Rate Respiratory Rate [Anterior Bilateral Throughout] Blood Pressure 116/64 124/76 124/76 O2 Sat by Pulse 100 99 98 Oximetry O2 Sat by Pulse Oximetry [ Assessment] 03/20/19 03/20/19 03/20/19 09:25 09:31 09:45 Temperature Pulse Rate 106 H 98 H 107 H Pulse Rate [ Anterior Bilateral Throughout] Pulse Rate [ From Monitor] Respiratory 29 H 19 Rate Respiratory Rate [Anterior Bilateral Throughout] Blood Pressure 114/61 125/72 114/61 O2 Sat by Pulse 100 98 Oximetry O2 Sat by Pulse Oximetry [ Assessment] 03/20/19 10:01 Temperature Pulse Rate 110 H Pulse Rate [ Anterior Bilateral Throughout] Pulse Rate [ From Monitor] Respiratory 28 H Rate Respiratory Rate [Anterior Bilateral Throughout] Blood Pressure 119/64 O2 Sat by Pulse 97 Oximetry O2 Sat by Pulse Oximetry [ Assessment] Constitutional: no acute distress, alert Eyes: non-icteric ENT: oropharynx moist Neck: supple Effort: normal Ascultation: Bilateral: diminished breath sounds, other (coarse BS bilaterally) Percussion: Bilateral: not dull Cardiovascular: other (tachy, RR; no mrg) Gastrointestinal: normoactive bowel sounds, soft, non-tender, non-distended, other (ostomy in place, brown stool) Extremities: no cyanosis, no edema, pink and warm Neurologic: other (mild weakness LUE, o/w nonfocal) Psychiatric: other (unable to assess) CBC and BMP: 03/20/19 08:40 03/20/19 08:40 ABG, PT/INR, D-dimer: ABG POC ABG pH 7.510 (7.35-7.45) H 03/18/19 06:38 ABG pH 7.424 pH Units (7.350-7.450) 03/19/19 04:23 POC ABG pCO2 38.9 (35-45) 03/18/19 06:38 ABG pCO2 48.0 mm Hg 03/19/19 04:23 POC ABG pO2 164 (80-105) H 03/18/19 06:38 ABG pO2 78.3 mm Hg (80.0-90.0) L 03/19/19 04:23 POC ABG HCO3 31.0 (22-26 mml/L) 03/18/19 06:38 POC ABG Total CO2 32 (23-27mmol/L) 03/18/19 06:38 POC ABG O2 Sat 100 03/18/19 06:38 ABG O2 Saturation 97.0 % (95.0-99.0) 03/19/19 04:23 PT/INR, D-dimer PT 16.3 Sec. (12.2-14.9) H 03/01/19 09:39 INR 1.35 (0.87-1.13) H 03/01/19 09:39 2987.82 ng/mlDDU (0-234) H 02/22/19 05:54 Abnormal lab findings: Abnormal Labs 02/21/19 02/21/19 02/21/19 18:30 18:30 18:30 WBC RBC 3.26 L Hgb 8.8 L Hct 29.0 L MCH 27 L MCHC 30 L RDW 19.1 H Lymph % (Auto) 6.1 L [place] % (Auto) Eos % (Auto) Lymph # 0.4 L [place] # Eos # Seg Neutrophils % 86.2 H Seg Neutrophils # PT INR D-Dimer POC ABG pH POC ABG pCO2 POC ABG pO2 ABG pO2 ABG HCO3 ABG Base Excess ABG Hemoglobin Oxyhemoglobin Sodium 133 L Potassium 3.3 L Chloride 93.1 L Carbon Dioxide 33 H BUN Creatinine Glucose 161 H POC Glucose Calcium Phosphorus ALT Alkaline Phosphatase 136 H Total Creatine Kinase 37 L CK-MB (CK-2) Rel Index Troponin T 0.192 H* Albumin 2.4 L LDL Cholesterol Direct 36 L PTH Intact Salicylates Acetaminophen Crossmatch 02/21/19 02/21/19 02/21/19 18:42 20:04 20:04 WBC RBC Hgb Hct MCH MCHC RDW Lymph % (Auto) [place] % (Auto) Eos % (Auto) Lymph # [place] # Eos # Seg Neutrophils % Seg Neutrophils # PT INR D-Dimer POC ABG pH POC ABG pCO2 56.7 H POC ABG pO2 291 H ABG pO2 ABG HCO3 ABG Base Excess ABG Hemoglobin Oxyhemoglobin Sodium Potassium Chloride Carbon Dioxide BUN Creatinine Glucose POC Glucose Calcium Phosphorus ALT Alkaline Phosphatase Total Creatine Kinase CK-MB (CK-2) Rel Index Troponin T Albumin LDL Cholesterol Direct PTH Intact Salicylates < 0.3 L Acetaminophen < 5.0 L Crossmatch 02/21/19 02/22/19 02/22/19 22:35 03:42 03:42 WBC RBC 3.20 L Hgb 8.8 L Hct 27.6 L MCH MCHC RDW 18.9 H Lymph % (Auto) 7.4 L [place] % (Auto) Eos % (Auto) Lymph # 0.7 L [place] # Eos # Seg Neutrophils % 84.7 H Seg Neutrophils # PT INR D-Dimer POC ABG pH POC ABG pCO2 POC ABG pO2 ABG pO2 ABG HCO3 ABG Base Excess ABG Hemoglobin Oxyhemoglobin Sodium 134 L Potassium 2.6 L* D Chloride Carbon Dioxide BUN Creatinine Glucose POC Glucose Calcium Phosphorus ALT Alkaline Phosphatase Total Creatine Kinase CK-MB (CK-2) Rel Index 5.2 H Troponin T 0.202 H* Albumin LDL Cholesterol Direct PTH Intact Salicylates Acetaminophen Crossmatch 02/22/19 02/22/19 02/22/19 03:42 05:54 09:04 WBC RBC Hgb Hct MCH MCHC RDW Lymph % (Auto) [place] % (Auto) Eos % (Auto) Lymph # [place] # Eos # Seg Neutrophils % Seg Neutrophils # PT INR D-Dimer 2987.82 H POC ABG pH 7.451 H POC ABG pCO2 POC ABG pO2 ABG pO2 ABG HCO3 ABG Base Excess ABG Hemoglobin Oxyhemoglobin Sodium Potassium Chloride Carbon Dioxide BUN Creatinine Glucose POC Glucose Calcium Phosphorus ALT Alkaline Phosphatase Total Creatine Kinase CK-MB (CK-2) Rel Index 5.7 H Troponin T 0.193 H* Albumin LDL Cholesterol Direct PTH Intact Salicylates Acetaminophen Crossmatch 02/22/19 02/22/19 02/23/19 10:36 23:56 00:52 WBC RBC Hgb Hct MCH MCHC RDW Lymph % (Auto) [place] % (Auto) Eos % (Auto) Lymph # [place] # Eos # Seg Neutrophils % Seg Neutrophils # PT INR D-Dimer POC ABG pH POC ABG pCO2 POC ABG pO2 ABG pO2 ABG HCO3 ABG Base Excess ABG Hemoglobin Oxyhemoglobin Sodium Potassium 3.1 L Chloride Carbon Dioxide BUN Creatinine Glucose POC Glucose 58 L 111 H Calcium Phosphorus ALT Alkaline Phosphatase Total Creatine Kinase CK-MB (CK-2) Rel Index Troponin T Albumin LDL Cholesterol Direct PTH Intact Salicylates Acetaminophen Crossmatch 02/23/19 02/23/19 02/23/19 05:00 06:35 14:26 WBC RBC Hgb Hct MCH MCHC RDW Lymph % (Auto) [place] % (Auto) Eos % (Auto) Lymph # [place] # Eos # Seg Neutrophils % Seg Neutrophils # PT INR D-Dimer POC ABG pH POC ABG pCO2 POC ABG pO2 ABG pO2 ABG HCO3 ABG Base Excess ABG Hemoglobin Oxyhemoglobin Sodium 135 L Potassium 3.1 L Chloride Carbon Dioxide BUN 21 H Creatinine 2.0 H Glucose 57 L POC Glucose 64 L 62 L Calcium Phosphorus ALT Alkaline Phosphatase Total Creatine Kinase CK-MB (CK-2) Rel Index Troponin T Albumin LDL Cholesterol Direct PTH Intact Salicylates Acetaminophen Crossmatch 02/24/19 02/24/19 02/24/19 02:11 04:12 04:55 WBC RBC 2.84 L Hgb 7.8 L Hct 24.5 L MCH MCHC RDW 19.5 H Lymph % (Auto) [place] % (Auto) Eos % (Auto) Lymph # [place] # Eos # Seg Neutrophils % Seg Neutrophils # PT INR D-Dimer POC ABG pH 7.511 H POC ABG pCO2 33.9 L POC ABG pO2 62 L ABG pO2 ABG HCO3 ABG Base Excess ABG Hemoglobin Oxyhemoglobin Sodium Potassium Chloride Carbon Dioxide BUN Creatinine Glucose POC Glucose 69 L Calcium Phosphorus ALT Alkaline Phosphatase Total Creatine Kinase CK-MB (CK-2) Rel Index Troponin T Albumin LDL Cholesterol Direct PTH Intact Salicylates Acetaminophen Crossmatch 02/24/19 02/24/19 02/25/19 04:55 05:41 04:45 WBC RBC Hgb Hct MCH MCHC RDW Lymph % (Auto) [place] % (Auto) Eos % (Auto) Lymph # [place] # Eos # Seg Neutrophils % Seg Neutrophils # PT INR D-Dimer POC ABG pH 7.466 H POC ABG pCO2 POC ABG pO2 75 L ABG pO2 ABG HCO3 ABG Base Excess ABG Hemoglobin Oxyhemoglobin Sodium Potassium Chloride Carbon Dioxide BUN Creatinine 1.8 H Glucose 73 L POC Glucose 127 H Calcium Phosphorus ALT Alkaline Phosphatase Total Creatine Kinase CK-MB (CK-2) Rel Index Troponin T Albumin LDL Cholesterol Direct PTH Intact Salicylates Acetaminophen Crossmatch 02/25/19 02/25/19 02/26/19 16:34 21:33 03:45 WBC RBC 2.96 L Hgb 8.0 L Hct 25.8 L MCH 27 L MCHC 31 L RDW 20.0 H Lymph % (Auto) [place] % (Auto) Eos % (Auto) Lymph # [place] # Eos # Seg Neutrophils % Seg Neutrophils # PT INR D-Dimer POC ABG pH POC ABG pCO2 POC ABG pO2 ABG pO2 ABG HCO3 ABG Base Excess ABG Hemoglobin Oxyhemoglobin Sodium Potassium Chloride Carbon Dioxide BUN Creatinine Glucose POC Glucose 141 H 106 H Calcium Phosphorus ALT Alkaline Phosphatase Total Creatine Kinase CK-MB (CK-2) Rel Index Troponin T Albumin LDL Cholesterol Direct PTH Intact Salicylates Acetaminophen Crossmatch 02/26/19 02/26/19 02/26/19 03:45 04:13 07:53 WBC RBC Hgb Hct MCH MCHC RDW Lymph % (Auto) [place] % (Auto) Eos % (Auto) Lymph # [place] # Eos # Seg Neutrophils % Seg Neutrophils # PT INR D-Dimer POC ABG pH 7.470 H POC ABG pCO2 POC ABG pO2 ABG pO2 ABG HCO3 ABG Base Excess ABG Hemoglobin Oxyhemoglobin Sodium Potassium Chloride Carbon Dioxide BUN Creatinine 1.8 H Glucose POC Glucose 110 H Calcium Phosphorus ALT Alkaline Phosphatase Total Creatine Kinase CK-MB (CK-2) Rel Index Troponin T Albumin LDL Cholesterol Direct PTH Intact Salicylates Acetaminophen Crossmatch 02/26/19 02/26/19 02/27/19 11:56 17:43 00:12 WBC RBC Hgb Hct MCH MCHC RDW Lymph % (Auto) [place] % (Auto) Eos % (Auto) Lymph # [place] # Eos # Seg Neutrophils % Seg Neutrophils # PT INR D-Dimer POC ABG pH POC ABG pCO2 POC ABG pO2 ABG pO2 ABG HCO3 ABG Base Excess ABG Hemoglobin Oxyhemoglobin Sodium Potassium Chloride Carbon Dioxide BUN Creatinine Glucose POC Glucose 112 H 127 H 127 H Calcium Phosphorus ALT Alkaline Phosphatase Total Creatine Kinase CK-MB (CK-2) Rel Index Troponin T Albumin LDL Cholesterol Direct PTH Intact Salicylates Acetaminophen Crossmatch 02/27/19 02/27/19 02/27/19 04:35 13:15 18:02 WBC RBC Hgb Hct MCH MCHC RDW Lymph % (Auto) [place] % (Auto) Eos % (Auto) Lymph # [place] # Eos # Seg Neutrophils % Seg Neutrophils # PT INR D-Dimer POC ABG pH 7.483 H POC ABG pCO2 POC ABG pO2 61 L ABG pO2 ABG HCO3 ABG Base Excess ABG Hemoglobin Oxyhemoglobin Sodium Potassium Chloride Carbon Dioxide BUN Creatinine Glucose POC Glucose 143 H 106 H Calcium Phosphorus ALT Alkaline Phosphatase Total Creatine Kinase CK-MB (CK-2) Rel Index Troponin T Albumin LDL Cholesterol Direct PTH Intact Salicylates Acetaminophen Crossmatch 02/28/19 02/28/19 02/28/19 05:50 11:59 17:52 WBC RBC Hgb Hct MCH MCHC RDW Lymph % (Auto) [place] % (Auto) Eos % (Auto) Lymph # [place] # Eos # Seg Neutrophils % Seg Neutrophils # PT INR D-Dimer POC ABG pH POC ABG pCO2 POC ABG pO2 ABG pO2 ABG HCO3 ABG Base Excess ABG Hemoglobin Oxyhemoglobin Sodium Potassium Chloride Carbon Dioxide BUN Creatinine Glucose POC Glucose 134 H 128 H 142 H Calcium Phosphorus ALT Alkaline Phosphatase Total Creatine Kinase CK-MB (CK-2) Rel Index Troponin T Albumin LDL Cholesterol Direct PTH Intact Salicylates Acetaminophen Crossmatch 02/28/19 03/01/19 03/01/19 23:13 05:40 09:39 WBC RBC Hgb Hct MCH MCHC RDW Lymph % (Auto) [place] % (Auto) Eos % (Auto) Lymph # [place] # Eos # Seg Neutrophils % Seg Neutrophils # PT 16.3 H INR 1.35 H D-Dimer POC ABG pH POC ABG pCO2 POC ABG pO2 ABG pO2 ABG HCO3 ABG Base Excess ABG Hemoglobin Oxyhemoglobin Sodium Potassium Chloride Carbon Dioxide BUN Creatinine Glucose POC Glucose 112 H 111 H Calcium Phosphorus ALT Alkaline Phosphatase Total Creatine Kinase CK-MB (CK-2) Rel Index Troponin T Albumin LDL Cholesterol Direct PTH Intact Salicylates Acetaminophen Crossmatch 03/01/19 03/01/19 03/01/19 11:56 13:54 17:59 WBC RBC Hgb Hct MCH MCHC RDW Lymph % (Auto) [place] % (Auto) Eos % (Auto) Lymph # [place] # Eos # Seg Neutrophils % Seg Neutrophils # PT INR D-Dimer POC ABG pH POC ABG pCO2 POC ABG pO2 ABG pO2 ABG HCO3 ABG Base Excess ABG Hemoglobin Oxyhemoglobin Sodium Potassium Chloride Carbon Dioxide BUN 33 H Creatinine 2.8 H D Glucose 176 H POC Glucose 199 H 147 H Calcium Phosphorus ALT Alkaline Phosphatase Total Creatine Kinase CK-MB (CK-2) Rel Index Troponin T Albumin LDL Cholesterol Direct PTH Intact Salicylates Acetaminophen Crossmatch 03/02/19 03/02/19 03/02/19 05:15 05:15 05:15 WBC RBC 2.73 L Hgb 7.4 L Hct 23.0 L MCH 27 L MCHC RDW 19.9 H Lymph % (Auto) [place] % (Auto) 7.9 H Eos % (Auto) 7.6 H Lymph # 1.0 L [place] # Eos # 0.5 H Seg Neutrophils % Seg Neutrophils # PT INR D-Dimer POC ABG pH POC ABG pCO2 POC ABG pO2 ABG pO2 ABG HCO3 ABG Base Excess ABG Hemoglobin Oxyhemoglobin Sodium Potassium Chloride Carbon Dioxide BUN 43 H Creatinine 3.2 H Glucose POC Glucose Calcium Phosphorus 2.30 L ALT Alkaline Phosphatase Total Creatine Kinase CK-MB (CK-2) Rel Index Troponin T Albumin LDL Cholesterol Direct PTH Intact 267.6 H Salicylates Acetaminophen Crossmatch 03/02/19 03/02/19 03/03/19 12:32 18:20 13:30 WBC RBC Hgb Hct MCH MCHC RDW Lymph % (Auto) [place] % (Auto) Eos % (Auto) Lymph # [place] # Eos # Seg Neutrophils % Seg Neutrophils # PT INR D-Dimer POC ABG pH POC ABG pCO2 POC ABG pO2 ABG pO2 ABG HCO3 ABG Base Excess ABG Hemoglobin Oxyhemoglobin Sodium Potassium Chloride 97.3 L Carbon Dioxide BUN 26 H Creatinine 2.2 H Glucose 73 L POC Glucose 111 H 156 H Calcium Phosphorus ALT Alkaline Phosphatase Total Creatine Kinase CK-MB (CK-2) Rel Index Troponin T Albumin LDL Cholesterol Direct PTH Intact Salicylates Acetaminophen Crossmatch 03/04/19 03/04/19 03/04/19 00:02 05:37 05:40 WBC RBC 2.63 L Hgb 7.2 L Hct 22.2 L MCH MCHC RDW 20.2 H Lymph % (Auto) 10.5 L [place] % (Auto) Eos % (Auto) 4.6 H Lymph # 0.7 L [place] # Eos # Seg Neutrophils % 76.9 H Seg Neutrophils # PT INR D-Dimer POC ABG pH POC ABG pCO2 POC ABG pO2 ABG pO2 ABG HCO3 ABG Base Excess ABG Hemoglobin Oxyhemoglobin Sodium Potassium Chloride Carbon Dioxide BUN Creatinine Glucose POC Glucose 136 H 123 H Calcium Phosphorus ALT Alkaline Phosphatase Total Creatine Kinase CK-MB (CK-2) Rel Index Troponin T Albumin LDL Cholesterol Direct PTH Intact Salicylates Acetaminophen Crossmatch 03/04/19 03/04/19 03/04/19 05:40 11:39 23:20 WBC RBC Hgb Hct MCH MCHC RDW Lymph % (Auto) [place] % (Auto) Eos % (Auto) Lymph # [place] # Eos # Seg Neutrophils % Seg Neutrophils # PT INR D-Dimer POC ABG pH POC ABG pCO2 POC ABG pO2 ABG pO2 ABG HCO3 ABG Base Excess ABG Hemoglobin Oxyhemoglobin Sodium Potassium Chloride Carbon Dioxide BUN 34 H Creatinine 2.7 H Glucose 114 H POC Glucose 175 H 151 H Calcium Phosphorus ALT Alkaline Phosphatase Total Creatine Kinase CK-MB (CK-2) Rel Index Troponin T Albumin LDL Cholesterol Direct PTH Intact Salicylates Acetaminophen Crossmatch 03/05/19 03/05/19 03/05/19 05:37 12:08 17:11 WBC RBC Hgb Hct MCH MCHC RDW Lymph % (Auto) [place] % (Auto) Eos % (Auto) Lymph # [place] # Eos # Seg Neutrophils % Seg Neutrophils # PT INR D-Dimer POC ABG pH POC ABG pCO2 POC ABG pO2 ABG pO2 ABG HCO3 ABG Base Excess ABG Hemoglobin Oxyhemoglobin Sodium Potassium Chloride Carbon Dioxide BUN Creatinine Glucose POC Glucose 134 H 135 H 135 H Calcium Phosphorus ALT Alkaline Phosphatase Total Creatine Kinase CK-MB (CK-2) Rel Index Troponin T Albumin LDL Cholesterol Direct PTH Intact Salicylates Acetaminophen Crossmatch 03/06/19 03/06/19 03/06/19 00:16 13:05 18:09 WBC RBC Hgb Hct MCH MCHC RDW Lymph % (Auto) [place] % (Auto) Eos % (Auto) Lymph # [place] # Eos # Seg Neutrophils % Seg Neutrophils # PT INR D-Dimer POC ABG pH POC ABG pCO2 POC ABG pO2 ABG pO2 ABG HCO3 ABG Base Excess ABG Hemoglobin Oxyhemoglobin Sodium Potassium Chloride Carbon Dioxide BUN Creatinine Glucose POC Glucose 117 H 113 H 131 H Calcium Phosphorus ALT Alkaline Phosphatase Total Creatine Kinase CK-MB (CK-2) Rel Index Troponin T Albumin LDL Cholesterol Direct PTH Intact Salicylates Acetaminophen Crossmatch 03/07/19 03/08/19 03/08/19 05:25 05:33 16:00 WBC RBC 2.44 L Hgb 6.6 L Hct 20.8 L MCH 27 L MCHC RDW 19.2 H Lymph % (Auto) [place] % (Auto) Eos % (Auto) 8.6 H Lymph # 0.8 L [place] # Eos # 0.5 H Seg Neutrophils % 70.7 H Seg Neutrophils # PT INR D-Dimer POC ABG pH POC ABG pCO2 POC ABG pO2 ABG pO2 ABG HCO3 ABG Base Excess ABG Hemoglobin Oxyhemoglobin Sodium Potassium Chloride Carbon Dioxide BUN Creatinine Glucose POC Glucose 106 H 108 H Calcium Phosphorus ALT Alkaline Phosphatase Total Creatine Kinase CK-MB (CK-2) Rel Index Troponin T Albumin LDL Cholesterol Direct PTH Intact Salicylates Acetaminophen Crossmatch 03/08/19 03/08/19 03/08/19 16:00 18:38 Unknown WBC RBC Hgb Hct MCH MCHC RDW Lymph % (Auto) [place] % (Auto) Eos % (Auto) Lymph # [place] # Eos # Seg Neutrophils % Seg Neutrophils # PT INR D-Dimer POC ABG pH POC ABG pCO2 POC ABG pO2 ABG pO2 ABG HCO3 ABG Base Excess ABG Hemoglobin Oxyhemoglobin Sodium Potassium 5.4 H D Chloride Carbon Dioxide BUN 47 H Creatinine 2.6 H Glucose POC Glucose 123 H Calcium Phosphorus ALT < 5 L Alkaline Phosphatase Total Creatine Kinase CK-MB (CK-2) Rel Index Troponin T Albumin 2.2 L LDL Cholesterol Direct PTH Intact Salicylates Acetaminophen Crossmatch See Detail 03/09/19 03/09/19 03/09/19 10:48 12:28 13:53 WBC RBC 2.85 L Hgb 7.7 L Hct 24.2 L MCH 27 L MCHC RDW 18.7 H Lymph % (Auto) [place] % (Auto) Eos % (Auto) Lymph # [place] # Eos # Seg Neutrophils % Seg Neutrophils # PT INR D-Dimer POC ABG pH POC ABG pCO2 POC ABG pO2 ABG pO2 ABG HCO3 30.5 H ABG Base Excess 5.6 H ABG Hemoglobin 8.1 L Oxyhemoglobin 93.8 L Sodium Potassium Chloride Carbon Dioxide BUN Creatinine Glucose POC Glucose 114 H Calcium Phosphorus ALT Alkaline Phosphatase Total Creatine Kinase CK-MB (CK-2) Rel Index Troponin T Albumin LDL Cholesterol Direct PTH Intact Salicylates Acetaminophen Crossmatch 03/09/19 03/09/19 03/10/19 17:58 23:53 12:01 WBC RBC Hgb Hct MCH MCHC RDW Lymph % (Auto) [place] % (Auto) Eos % (Auto) Lymph # [place] # Eos # Seg Neutrophils % Seg Neutrophils # PT INR D-Dimer POC ABG pH POC ABG pCO2 POC ABG pO2 ABG pO2 ABG HCO3 ABG Base Excess ABG Hemoglobin Oxyhemoglobin Sodium Potassium Chloride Carbon Dioxide BUN Creatinine Glucose POC Glucose 108 H 128 H 144 H Calcium Phosphorus ALT Alkaline Phosphatase Total Creatine Kinase CK-MB (CK-2) Rel Index Troponin T Albumin LDL Cholesterol Direct PTH Intact Salicylates Acetaminophen Crossmatch 03/10/19 03/11/19 03/11/19 16:50 00:24 05:02 WBC RBC Hgb Hct MCH MCHC RDW Lymph % (Auto) [place] % (Auto) Eos % (Auto) Lymph # [place] # Eos # Seg Neutrophils % Seg Neutrophils # PT INR D-Dimer POC ABG pH POC ABG pCO2 POC ABG pO2 ABG pO2 ABG HCO3 ABG Base Excess ABG Hemoglobin Oxyhemoglobin Sodium Potassium Chloride Carbon Dioxide BUN Creatinine Glucose POC Glucose 147 H 123 H 120 H Calcium Phosphorus ALT Alkaline Phosphatase Total Creatine Kinase CK-MB (CK-2) Rel Index Troponin T Albumin LDL Cholesterol Direct PTH Intact Salicylates Acetaminophen Crossmatch 03/11/19 03/11/19 03/11/19 11:56 12:20 18:37 WBC RBC Hgb Hct MCH MCHC RDW Lymph % (Auto) [place] % (Auto) Eos % (Auto) Lymph # [place] # Eos # Seg Neutrophils % Seg Neutrophils # PT INR D-Dimer POC ABG pH POC ABG pCO2 POC ABG pO2 ABG pO2 ABG HCO3 ABG Base Excess ABG Hemoglobin Oxyhemoglobin Sodium Potassium 5.2 H Chloride Carbon Dioxide BUN Creatinine Glucose POC Glucose 123 H 125 H Calcium Phosphorus ALT Alkaline Phosphatase Total Creatine Kinase CK-MB (CK-2) Rel Index Troponin T Albumin LDL Cholesterol Direct PTH Intact Salicylates Acetaminophen Crossmatch 03/11/19 03/12/19 03/12/19 22:52 12:04 18:25 WBC RBC Hgb Hct MCH MCHC RDW Lymph % (Auto) [place] % (Auto) Eos % (Auto) Lymph # [place] # Eos # Seg Neutrophils % Seg Neutrophils # PT INR D-Dimer POC ABG pH POC ABG pCO2 POC ABG pO2 ABG pO2 ABG HCO3 ABG Base Excess ABG Hemoglobin Oxyhemoglobin Sodium Potassium Chloride Carbon Dioxide BUN Creatinine Glucose POC Glucose 110 H 106 H 118 H Calcium Phosphorus ALT Alkaline Phosphatase Total Creatine Kinase CK-MB (CK-2) Rel Index Troponin T Albumin LDL Cholesterol Direct PTH Intact Salicylates Acetaminophen Crossmatch 03/12/19 03/13/19 03/13/19 23:36 04:38 04:38 WBC RBC 2.95 L Hgb 7.9 L Hct 24.9 L MCH 27 L MCHC RDW 19.9 H Lymph % (Auto) 11.1 L [place] % (Auto) 8.1 H Eos % (Auto) 4.4 H Lymph # 0.9 L [place] # Eos # Seg Neutrophils % 75.4 H Seg Neutrophils # PT INR D-Dimer POC ABG pH POC ABG pCO2 POC ABG pO2 ABG pO2 ABG HCO3 ABG Base Excess ABG Hemoglobin Oxyhemoglobin Sodium 136 L Potassium 5.1 H Chloride 93.8 L Carbon Dioxide BUN 48 H Creatinine 2.7 H Glucose 102 H POC Glucose 115 H Calcium Phosphorus ALT < 5 L Alkaline Phosphatase 143 H Total Creatine Kinase CK-MB (CK-2) Rel Index Troponin T Albumin 2.5 L LDL Cholesterol Direct PTH Intact Salicylates Acetaminophen Crossmatch 03/13/19 03/13/19 03/13/19 05:33 13:37 18:03 WBC RBC Hgb Hct MCH MCHC RDW Lymph % (Auto) [place] % (Auto) Eos % (Auto) Lymph # [place] # Eos # Seg Neutrophils % Seg Neutrophils # PT INR D-Dimer POC ABG pH POC ABG pCO2 POC ABG pO2 ABG pO2 ABG HCO3 ABG Base Excess ABG Hemoglobin Oxyhemoglobin Sodium Potassium Chloride Carbon Dioxide BUN Creatinine Glucose POC Glucose 140 H 150 H 158 H Calcium Phosphorus ALT Alkaline Phosphatase Total Creatine Kinase CK-MB (CK-2) Rel Index Troponin T Albumin LDL Cholesterol Direct PTH Intact Salicylates Acetaminophen Crossmatch 03/13/19 03/14/19 03/14/19 23:32 05:24 12:20 WBC RBC Hgb Hct MCH MCHC RDW Lymph % (Auto) [place] % (Auto) Eos % (Auto) Lymph # [place] # Eos # Seg Neutrophils % Seg Neutrophils # PT INR D-Dimer POC ABG pH POC ABG pCO2 POC ABG pO2 ABG pO2 ABG HCO3 ABG Base Excess ABG Hemoglobin Oxyhemoglobin Sodium Potassium Chloride Carbon Dioxide BUN Creatinine Glucose POC Glucose 162 H 146 H 127 H Calcium Phosphorus ALT Alkaline Phosphatase Total Creatine Kinase CK-MB (CK-2) Rel Index Troponin T Albumin LDL Cholesterol Direct PTH Intact Salicylates Acetaminophen Crossmatch 03/14/19 03/14/19 03/15/19 18:05 23:57 04:38 WBC 12.8 H RBC 3.11 L Hgb 8.1 L Hct 26.5 L MCH 26 L MCHC 31 L RDW 19.7 H Lymph % (Auto) 4.4 L [place] % (Auto) 7.4 H Eos % (Auto) Lymph # 0.6 L [place] # 0.9 H Eos # Seg Neutrophils % 87.3 H Seg Neutrophils # 11.2 H PT INR D-Dimer POC ABG pH POC ABG pCO2 POC ABG pO2 ABG pO2 ABG HCO3 ABG Base Excess ABG Hemoglobin Oxyhemoglobin Sodium Potassium Chloride Carbon Dioxide BUN Creatinine Glucose POC Glucose 142 H 155 H Calcium Phosphorus ALT Alkaline Phosphatase Total Creatine Kinase CK-MB (CK-2) Rel Index Troponin T Albumin LDL Cholesterol Direct PTH Intact Salicylates Acetaminophen Crossmatch 03/15/19 03/15/19 03/15/19 04:38 05:31 11:32 WBC RBC Hgb Hct MCH MCHC RDW Lymph % (Auto) [place] % (Auto) Eos % (Auto) Lymph # [place] # Eos # Seg Neutrophils % Seg Neutrophils # PT INR D-Dimer POC ABG pH POC ABG pCO2 POC ABG pO2 ABG pO2 ABG HCO3 ABG Base Excess ABG Hemoglobin Oxyhemoglobin Sodium 135 L Potassium Chloride 91.9 L Carbon Dioxide BUN 54 H Creatinine 2.8 H Glucose 128 H POC Glucose 160 H 109 H Calcium 11.1 H Phosphorus ALT Alkaline Phosphatase 161 H Total Creatine Kinase CK-MB (CK-2) Rel Index Troponin T Albumin 2.3 L LDL Cholesterol Direct PTH Intact Salicylates Acetaminophen Crossmatch 03/15/19 03/15/19 03/16/19 18:15 23:41 05:40 WBC RBC Hgb Hct MCH MCHC RDW Lymph % (Auto) [place] % (Auto) Eos % (Auto) Lymph # [place] # Eos # Seg Neutrophils % Seg Neutrophils # PT INR D-Dimer POC ABG pH POC ABG pCO2 POC ABG pO2 ABG pO2 ABG HCO3 ABG Base Excess ABG Hemoglobin Oxyhemoglobin Sodium Potassium Chloride Carbon Dioxide BUN Creatinine Glucose POC Glucose 151 H 110 H 163 H Calcium Phosphorus ALT Alkaline Phosphatase Total Creatine Kinase CK-MB (CK-2) Rel Index Troponin T Albumin LDL Cholesterol Direct PTH Intact Salicylates Acetaminophen Crossmatch 03/16/19 03/16/19 03/16/19 11:55 17:04 23:58 WBC RBC Hgb Hct MCH MCHC RDW Lymph % (Auto) [place] % (Auto) Eos % (Auto) Lymph # [place] # Eos # Seg Neutrophils % Seg Neutrophils # PT INR D-Dimer POC ABG pH POC ABG pCO2 POC ABG pO2 ABG pO2 ABG HCO3 ABG Base Excess ABG Hemoglobin Oxyhemoglobin Sodium Potassium Chloride Carbon Dioxide BUN Creatinine Glucose POC Glucose 114 H 147 H 192 H Calcium Phosphorus ALT Alkaline Phosphatase Total Creatine Kinase CK-MB (CK-2) Rel Index Troponin T Albumin LDL Cholesterol Direct PTH Intact Salicylates Acetaminophen Crossmatch 03/17/19 03/17/19 03/17/19 05:53 11:17 17:01 WBC RBC Hgb Hct MCH MCHC RDW Lymph % (Auto) [place] % (Auto) Eos % (Auto) Lymph # [place] # Eos # Seg Neutrophils % Seg Neutrophils # PT INR D-Dimer POC ABG pH POC ABG pCO2 POC ABG pO2 ABG pO2 ABG HCO3 ABG Base Excess ABG Hemoglobin Oxyhemoglobin Sodium Potassium Chloride Carbon Dioxide BUN Creatinine Glucose POC Glucose 151 H 161 H 152 H Calcium Phosphorus ALT Alkaline Phosphatase Total Creatine Kinase CK-MB (CK-2) Rel Index Troponin T Albumin LDL Cholesterol Direct PTH Intact Salicylates Acetaminophen Crossmatch 03/17/19 03/18/19 03/18/19 21:47 04:15 04:44 WBC RBC Hgb Hct MCH MCHC RDW Lymph % (Auto) [place] % (Auto) Eos % (Auto) Lymph # [place] # Eos # Seg Neutrophils % Seg Neutrophils # PT INR D-Dimer POC ABG pH POC ABG pCO2 POC ABG pO2 ABG pO2 102.8 H ABG HCO3 28.3 H ABG Base Excess ABG Hemoglobin 10.4 L Oxyhemoglobin 94.5 L Sodium Potassium Chloride Carbon Dioxide BUN Creatinine Glucose POC Glucose 170 H 150 H Calcium Phosphorus ALT Alkaline Phosphatase Total Creatine Kinase CK-MB (CK-2) Rel Index Troponin T Albumin LDL Cholesterol Direct PTH Intact Salicylates Acetaminophen Crossmatch 03/18/19 03/18/19 03/18/19 06:38 12:12 17:47 WBC RBC Hgb Hct MCH MCHC RDW Lymph % (Auto) [place] % (Auto) Eos % (Auto) Lymph # [place] # Eos # Seg Neutrophils % Seg Neutrophils # PT INR D-Dimer POC ABG pH 7.510 H POC ABG pCO2 POC ABG pO2 164 H ABG pO2 ABG HCO3 ABG Base Excess ABG Hemoglobin Oxyhemoglobin Sodium Potassium Chloride Carbon Dioxide BUN Creatinine Glucose POC Glucose 145 H 149 H Calcium Phosphorus ALT Alkaline Phosphatase Total Creatine Kinase CK-MB (CK-2) Rel Index Troponin T Albumin LDL Cholesterol Direct PTH Intact Salicylates Acetaminophen Crossmatch 03/18/19 03/19/19 03/19/19 23:25 01:11 04:23 WBC 15.6 H RBC 2.51 L Hgb 6.5 L Hct 21.6 L MCH 26 L MCHC 30 L RDW 19.8 H Lymph % (Auto) 6.0 L [place] % (Auto) Eos % (Auto) Lymph # 0.9 L [place] # 1.0 H Eos # Seg Neutrophils % 85.5 H Seg Neutrophils # 13.4 H PT INR D-Dimer POC ABG pH POC ABG pCO2 POC ABG pO2 ABG pO2 78.3 L ABG HCO3 30.7 H ABG Base Excess 5.8 H ABG Hemoglobin 5.8 L Oxyhemoglobin 94.6 L Sodium Potassium Chloride Carbon Dioxide BUN Creatinine Glucose POC Glucose 190 H Calcium Phosphorus ALT Alkaline Phosphatase Total Creatine Kinase CK-MB (CK-2) Rel Index Troponin T Albumin LDL Cholesterol Direct PTH Intact Salicylates Acetaminophen Crossmatch 03/19/19 03/19/19 03/19/19 05:22 05:35 08:54 WBC RBC Hgb Hct MCH MCHC RDW Lymph % (Auto) [place] % (Auto) Eos % (Auto) Lymph # [place] # Eos # Seg Neutrophils % Seg Neutrophils # PT INR D-Dimer POC ABG pH POC ABG pCO2 POC ABG pO2 ABG pO2 ABG HCO3 ABG Base Excess ABG Hemoglobin Oxyhemoglobin Sodium Potassium Chloride Carbon Dioxide BUN Creatinine Glucose POC Glucose 167 H Calcium Phosphorus ALT Alkaline Phosphatase Total Creatine Kinase CK-MB (CK-2) Rel Index Troponin T Albumin LDL Cholesterol Direct PTH Intact Salicylates Acetaminophen Crossmatch See Detail See Detail 03/19/19 03/19/19 03/19/19 12:36 17:02 23:25 WBC RBC Hgb Hct MCH MCHC RDW Lymph % (Auto) [place] % (Auto) Eos % (Auto) Lymph # [place] # Eos # Seg Neutrophils % Seg Neutrophils # PT INR D-Dimer POC ABG pH POC ABG pCO2 POC ABG pO2 ABG pO2 ABG HCO3 ABG Base Excess ABG Hemoglobin Oxyhemoglobin Sodium Potassium Chloride Carbon Dioxide BUN Creatinine Glucose POC Glucose 167 H 135 H 136 H Calcium Phosphorus ALT Alkaline Phosphatase Total Creatine Kinase CK-MB (CK-2) Rel Index Troponin T Albumin LDL Cholesterol Direct PTH Intact Salicylates Acetaminophen Crossmatch 03/20/19 03/20/19 03/20/19 05:38 08:40 08:40 WBC RBC 2.61 L Hgb 7.1 L Hct 22.0 L MCH 27 L MCHC RDW 19.6 H Lymph % (Auto) 8.2 L [place] % (Auto) 8.3 H Eos % (Auto) 5.7 H Lymph # 0.8 L [place] # Eos # 0.5 H Seg Neutrophils % 77.3 H Seg Neutrophils # PT INR D-Dimer POC ABG pH POC ABG pCO2 POC ABG pO2 ABG pO2 ABG HCO3 ABG Base Excess ABG Hemoglobin Oxyhemoglobin Sodium Potassium Chloride 95.9 L Carbon Dioxide BUN 69 H Creatinine 2.8 H Glucose 115 H POC Glucose 134 H Calcium 10.5 H Phosphorus ALT Alkaline Phosphatase Total Creatine Kinase CK-MB (CK-2) Rel Index Troponin T Albumin LDL Cholesterol Direct PTH Intact Salicylates Acetaminophen Crossmatch 03/20/19 12:13 WBC RBC Hgb Hct MCH MCHC RDW Lymph % (Auto) [place] % (Auto) Eos % (Auto) Lymph # [place] # Eos # Seg Neutrophils % Seg Neutrophils # PT INR D-Dimer POC ABG pH POC ABG pCO2 POC ABG pO2 ABG pO2 ABG HCO3 ABG Base Excess ABG Hemoglobin Oxyhemoglobin Sodium Potassium Chloride Carbon Dioxide BUN Creatinine Glucose POC Glucose 144 H Calcium Phosphorus ALT Alkaline Phosphatase Total Creatine Kinase CK-MB (CK-2) Rel Index Troponin T Albumin LDL Cholesterol Direct PTH Intact Salicylates Acetaminophen Crossmatch
--- NOTE | 2019-03-20 13:28 | Progress Note ---
Assessment and Plan Cultures: 03/14 Sputum Cx: MDR Acinetobacter 03/14 BCx: NGTD 03/17 Sputum CX: GNR pending finalization A/P: 63 yo M PMHx CVA, CHF, AICD, DM2, L foot ulcer, ESRD on HD, HTN, afib admitted with respiratory failure and fluid overload 1. Sepsis secondary to MDR Acinetobacter pneumonia - Cultures with multidrug resistant Acinetobacter baumannii. Sensitive to Bactrim. Normally would consider a contaminant, however given his symptoms will treat. He is poor prognosis, as such will avoid aminoglycosides as long as possible. Will treat with Bactrim ESRD dosing. Discussed with pharmacy. If he fails this would need to consider aminoglycoside or Poly B/Minocycline. Need to consider hospice, he will continue to develop worsening resistance and we will exhaust all therapeutic options for AcBau very quicky. 2. Hypoxic respiratory failure - 2/2 fluid overload. Improving 3. DM2 4. L foot ulcer 5. Hx of sacral ulcer s/p extensive treatment - treated with 6 weeks of vancomycin and meropenem earlier this year 6. ESRD on HD 7. HTN 8. Afib Recs: - continue Bactrim ESRD dosing per pharmacy - follow up blood cultures - contact precautions Thank you for the consult, we will continue to follow. Sherman Shirley MD [facility] ([facility]) M: [phone] O: [phone] F: [phone] Subjective Date of service: 03/20/19 Principal diagnosis: respiratory failure Interval history: Trach and ventilator. Afebrile. No change. Objective - Exam Narrative Exam: Constitutional: Alert, cooperative. No acute distress Neck: Supple, no meningeal signs. Trach in place. Oral: dentition fair, no thrush Cardiovascular: S1, S2 normal. Respiratory: Good air entry, clear to auscultation bilaterally GI: Soft, non-tender; bowel sounds normal. No peritoneal signs. Musculoskeletal: No pedal edema, no cyanosis. Skin: No rash or abscess Neurological: Awake, trached. No gross abnormality - Constitutional Vitals: Vital Signs Temp Pulse Resp BP Pulse Ox 98.4 F 107 H 28 H 124/70 97 03/20/19 08:00 03/20/19 12:45 03/20/19 12:45 03/20/19 12:45 03/20/19 12:45 Temperature -Last 24 Hours Temperature 98.4 F Temperature 98.4 F Temperature 97.6 F Temperature 99.6 F Temperature 99.8 F Temperature 99.3 F Temperature 98.7 F Temperature 99.3 F Temperature 99.2 F Temperature 99.4 F Temperature 99.5 F - Labs CBC & Chem 7: 03/20/19 08:40 03/20/19 08:40 Labs: Abnormal lab results 03/18/19 03/19/19 03/19/19 Range/Units 04:15 08:54 17:02 RBC (3.65-5.03) M/mm3 Hgb (11.8-15.2) gm/dl Hct (35.5-45.6) % MCH (28-32) pg RDW (13.2-15.2) % Lymph % (Auto) (13.4-35.0) % [place] % (Auto) (0.0-7.3) % Eos % (Auto) (0.0-4.3) % Lymph # (1.2-5.4) K/mm3 Eos # (0.0-0.4) K/mm3 Seg Neutrophils % (40.0-70.0) % ABG pO2 102.8 H (80.0-90.0) mm Hg ABG HCO3 28.3 H (20.0-26.0) mmol/L ABG Hemoglobin 10.4 L (14.0-18.0) gm/dl Oxyhemoglobin 94.5 L (95.0-99.0) % Chloride (98-107) mmol/L BUN (9-20) mg/dL Creatinine (0.8-1.5) mg/dL Glucose (75-100) mg/dL POC Glucose 135 H (70-105) Calcium (8.4-10.2) mg/dL Crossmatch See Detail 03/19/19 03/20/19 03/20/19 Range/Units 23:25 05:38 08:40 RBC 2.61 L (3.65-5.03) M/mm3 Hgb 7.1 L (11.8-15.2) gm/dl Hct 22.0 L (35.5-45.6) % MCH 27 L (28-32) pg RDW 19.6 H (13.2-15.2) % Lymph % (Auto) 8.2 L (13.4-35.0) % [place] % (Auto) 8.3 H (0.0-7.3) % Eos % (Auto) 5.7 H (0.0-4.3) % Lymph # 0.8 L (1.2-5.4) K/mm3 Eos # 0.5 H (0.0-0.4) K/mm3 Seg Neutrophils % 77.3 H (40.0-70.0) % ABG pO2 (80.0-90.0) mm Hg ABG HCO3 (20.0-26.0) mmol/L ABG Hemoglobin (14.0-18.0) gm/dl Oxyhemoglobin (95.0-99.0) % Chloride (98-107) mmol/L BUN (9-20) mg/dL Creatinine (0.8-1.5) mg/dL Glucose (75-100) mg/dL POC Glucose 136 H 134 H (70-105) Calcium (8.4-10.2) mg/dL Crossmatch 03/20/19 03/20/19 Range/Units 08:40 12:13 RBC (3.65-5.03) M/mm3 Hgb (11.8-15.2) gm/dl Hct (35.5-45.6) % MCH (28-32) pg RDW (13.2-15.2) % Lymph % (Auto) (13.4-35.0) % [place] % (Auto) (0.0-7.3) % Eos % (Auto) (0.0-4.3) % Lymph # (1.2-5.4) K/mm3 Eos # (0.0-0.4) K/mm3 Seg Neutrophils % (40.0-70.0) % ABG pO2 (80.0-90.0) mm Hg ABG HCO3 (20.0-26.0) mmol/L ABG Hemoglobin (14.0-18.0) gm/dl Oxyhemoglobin (95.0-99.0) % Chloride 95.9 L (98-107) mmol/L BUN 69 H (9-20) mg/dL Creatinine 2.8 H (0.8-1.5) mg/dL Glucose 115 H (75-100) mg/dL POC Glucose 144 H (70-105) Calcium 10.5 H (8.4-10.2) mg/dL Crossmatch
[2019-03-20] MEDS ORDERED: SODIUM CHLORIDE 0.9% 1000 ML 1,000 ML ONE (17:03)
--- NOTE | 2019-03-20 17:23 | Progress Note ---
Assessment and Plan - Patient Problems (1) ESRD (end stage renal disease) on dialysis Current Visit: Yes Status: Chronic Plan to address problem: End stage renal disease : - access: Left arm AVG Continue hemodialysis Saturday (2) Diabetes mellitus, insulin dependent (IDDM), uncontrolled Current Visit: No Status: Acute Plan to address problem: DM type II uncontrolled Monitor Fingersticks (3) Anemia in chronic kidney disease, on chronic dialysis Current Visit: Yes Status: Acute Plan to address problem: Anemia of chronic kidney disease hemoglobin 8.2 -6.5--7.1 g/dl We'll give Epogen Received PrBc transfusion Monitor CBC (4) Hypertension Current Visit: Yes Status: Acute Plan to address problem: Hypertension controlled Ensure medications Monitor blood pressure Subjective Principal diagnosis: respiratory failure Interval history: 63-year-old gentleman with medical history significant for end-stage renal disease on hemodialysis via a left arm AV graft is currently in the IMCU for plan for dialysis today Patient is poorly responsive review of systems unobtainable tracheal stain with gram positive rods. now with trache on trach collar I accessed I saw the patient on dialysis at 4 PM Objective - Vital Signs Vital signs: Vital Signs - 12hr 03/20/19 03/20/19 03/20/19 05:31 05:45 06:00 Temperature Pulse Rate 104 H 97 H 103 H Pulse Rate [ Anterior Bilateral Throughout] Pulse Rate [ Throughout] Respiratory 20 18 15 Rate Respiratory Rate [Anterior Bilateral Throughout] Respiratory Rate [ Throughout] Blood Pressure 117/67 117/67 116/69 O2 Sat by Pulse 100 100 100 Oximetry O2 Sat by Pulse Oximetry [ Anterior Bilateral Throughout] O2 Sat by Pulse Oximetry [ Assessment] 03/20/19 03/20/19 03/20/19 06:15 06:31 06:45 Temperature Pulse Rate 101 H 100 H 91 H Pulse Rate [ Anterior Bilateral Throughout] Pulse Rate [ Throughout] Respiratory 22 18 21 Rate Respiratory Rate [Anterior Bilateral Throughout] Respiratory Rate [ Throughout] Blood Pressure 116/69 115/47 115/47 O2 Sat by Pulse 100 100 100 Oximetry O2 Sat by Pulse Oximetry [ Anterior Bilateral Throughout] O2 Sat by Pulse Oximetry [ Assessment] 03/20/19 03/20/19 03/20/19 07:00 07:15 07:30 Temperature Pulse Rate 108 H 106 H 101 H Pulse Rate [ Anterior Bilateral Throughout] Pulse Rate [ Throughout] Respiratory 18 19 17 Rate Respiratory Rate [Anterior Bilateral Throughout] Respiratory Rate [ Throughout] Blood Pressure 113/54 113/54 113/60 O2 Sat by Pulse 100 100 100 Oximetry O2 Sat by Pulse Oximetry [ Anterior Bilateral Throughout] O2 Sat by Pulse Oximetry [ Assessment] 03/20/19 03/20/19 03/20/19 07:45 08:00 08:01 Temperature 98.4 F Pulse Rate 95 H 105 H 101 H Pulse Rate [ Anterior Bilateral Throughout] Pulse Rate [ Throughout] Respiratory 17 23 Rate Respiratory Rate [Anterior Bilateral Throughout] Respiratory Rate [ Throughout] Blood Pressure 113/60 121/78 O2 Sat by Pulse 100 100 Oximetry O2 Sat by Pulse Oximetry [ Anterior Bilateral Throughout] O2 Sat by Pulse Oximetry [ Assessment] 03/20/19 03/20/19 03/20/19 08:15 08:30 08:45 Temperature Pulse Rate 100 H 103 H 96 H Pulse Rate [ 101 H Anterior Bilateral Throughout] Pulse Rate [ Throughout] Respiratory 19 17 15 Rate Respiratory 22 Rate [Anterior Bilateral Throughout] Respiratory Rate [ Throughout] Blood Pressure 121/78 116/64 116/64 O2 Sat by Pulse 100 100 100 Oximetry O2 Sat by Pulse Oximetry [ Anterior Bilateral Throughout] O2 Sat by Pulse Oximetry [ Assessment] 03/20/19 03/20/19 03/20/19 09:01 09:15 09:25 Temperature Pulse Rate 103 H 106 H 106 H Pulse Rate [ Anterior Bilateral Throughout] Pulse Rate [ Throughout] Respiratory 23 15 Rate Respiratory Rate [Anterior Bilateral Throughout] Respiratory Rate [ Throughout] Blood Pressure 124/76 124/76 114/61 O2 Sat by Pulse 99 98 Oximetry O2 Sat by Pulse Oximetry [ Anterior Bilateral Throughout] O2 Sat by Pulse Oximetry [ Assessment] 03/20/19 03/20/19 03/20/19 09:31 09:45 10:01 Temperature Pulse Rate 98 H 107 H 110 H Pulse Rate [ Anterior Bilateral Throughout] Pulse Rate [ Throughout] Respiratory 29 H 19 28 H Rate Respiratory Rate [Anterior Bilateral Throughout] Respiratory Rate [ Throughout] Blood Pressure 125/72 114/61 119/64 O2 Sat by Pulse 100 98 97 Oximetry O2 Sat by Pulse Oximetry [ Anterior Bilateral Throughout] O2 Sat by Pulse Oximetry [ Assessment] 03/20/19 03/20/19 03/20/19 10:15 10:30 10:45 Temperature Pulse Rate 112 H 97 H 110 H Pulse Rate [ Anterior Bilateral Throughout] Pulse Rate [ Throughout] Respiratory 24 35 H 15 Rate Respiratory Rate [Anterior Bilateral Throughout] Respiratory Rate [ Throughout] Blood Pressure 119/64 127/67 127/67 O2 Sat by Pulse 97 97 97 Oximetry O2 Sat by Pulse Oximetry [ Anterior Bilateral Throughout] O2 Sat by Pulse Oximetry [ Assessment] 03/20/19 03/20/19 03/20/19 11:01 11:15 11:31 Temperature Pulse Rate 108 H 113 H 107 H Pulse Rate [ Anterior Bilateral Throughout] Pulse Rate [ Throughout] Respiratory 12 20 35 H Rate Respiratory Rate [Anterior Bilateral Throughout] Respiratory Rate [ Throughout] Blood Pressure 128/65 119/68 123/74 O2 Sat by Pulse 97 95 97 Oximetry O2 Sat by Pulse Oximetry [ Anterior Bilateral Throughout] O2 Sat by Pulse Oximetry [ Assessment] 03/20/19 03/20/19 03/20/19 11:45 12:00 12:01 Temperature 98.6 F Pulse Rate 112 H 113 H Pulse Rate [ Anterior Bilateral Throughout] Pulse Rate [ Throughout] Respiratory 14 16 Rate Respiratory Rate [Anterior Bilateral Throughout] Respiratory Rate [ Throughout] Blood Pressure 123/74 118/66 O2 Sat by Pulse 98 97 Oximetry O2 Sat by Pulse Oximetry [ Anterior Bilateral Throughout] O2 Sat by Pulse Oximetry [ Assessment] 03/20/19 03/20/19 03/20/19 12:15 12:31 12:45 Temperature Pulse Rate 107 H 112 H 107 H Pulse Rate [ Anterior Bilateral Throughout] Pulse Rate [ Throughout] Respiratory 22 21 28 H Rate Respiratory Rate [Anterior Bilateral Throughout] Respiratory Rate [ Throughout] Blood Pressure 118/66 128/65 124/70 O2 Sat by Pulse 99 97 97 Oximetry O2 Sat by Pulse Oximetry [ Anterior Bilateral Throughout] O2 Sat by Pulse Oximetry [ Assessment] 03/20/19 03/20/19 03/20/19 13:00 13:01 13:15 Temperature Pulse Rate 107 H 100 H 116 H Pulse Rate [ Anterior Bilateral Throughout] Pulse Rate [ Throughout] Respiratory 25 H 22 Rate Respiratory Rate [Anterior Bilateral Throughout] Respiratory Rate [ Throughout] Blood Pressure 105/78 116/72 116/72 O2 Sat by Pulse 96 96 Oximetry O2 Sat by Pulse Oximetry [ Anterior Bilateral Throughout] O2 Sat by Pulse 96 Oximetry [ Assessment] 03/20/19 03/20/19 03/20/19 13:31 13:32 13:45 Temperature Pulse Rate 117 H 110 H Pulse Rate [ 102 H Anterior Bilateral Throughout] Pulse Rate [ 108 H Throughout] Respiratory 26 H 30 H Rate Respiratory 28 H Rate [Anterior Bilateral Throughout] Respiratory 28 H Rate [ Throughout] Blood Pressure 117/81 117/68 O2 Sat by Pulse 95 93 Oximetry O2 Sat by Pulse Oximetry [ Anterior Bilateral Throughout] O2 Sat by Pulse Oximetry [ Assessment] 03/20/19 03/20/19 03/20/19 14:00 14:15 14:30 Temperature Pulse Rate 108 H 119 H 107 H Pulse Rate [ Anterior Bilateral Throughout] Pulse Rate [ Throughout] Respiratory 29 H 27 H 22 Rate Respiratory Rate [Anterior Bilateral Throughout] Respiratory Rate [ Throughout] Blood Pressure 119/71 117/68 138/66 O2 Sat by Pulse 93 95 95 Oximetry O2 Sat by Pulse Oximetry [ Anterior Bilateral Throughout] O2 Sat by Pulse Oximetry [ Assessment] 03/20/19 03/20/19 03/20/19 14:45 15:00 15:01 Temperature 98.7 F Pulse Rate 123 H 104 H 114 H Pulse Rate [ Anterior Bilateral Throughout] Pulse Rate [ Throughout] Respiratory 23 23 Rate Respiratory Rate [Anterior Bilateral Throughout] Respiratory Rate [ Throughout] Blood Pressure 119/70 125/66 119/70 O2 Sat by Pulse 96 95 Oximetry O2 Sat by Pulse 97 Oximetry [ Anterior Bilateral Throughout] O2 Sat by Pulse Oximetry [ Assessment] 03/20/19 03/20/19 03/20/19 15:15 15:30 15:45 Temperature Pulse Rate 121 H 108 H 119 H Pulse Rate [ Anterior Bilateral Throughout] Pulse Rate [ Throughout] Respiratory 20 Rate Respiratory Rate [Anterior Bilateral Throughout] Respiratory Rate [ Throughout] Blood Pressure 121/70 114/64 120/54 O2 Sat by Pulse 97 Oximetry O2 Sat by Pulse Oximetry [ Anterior Bilateral Throughout] O2 Sat by Pulse Oximetry [ Assessment] 03/20/19 03/20/19 16:00 16:15 Temperature Pulse Rate 114 H 105 H Pulse Rate [ Anterior Bilateral Throughout] Pulse Rate [ Throughout] Respiratory Rate Respiratory Rate [Anterior Bilateral Throughout] Respiratory Rate [ Throughout] Blood Pressure 117/76 130/65 O2 Sat by Pulse Oximetry O2 Sat by Pulse Oximetry [ Anterior Bilateral Throughout] O2 Sat by Pulse Oximetry [ Assessment] - General Appearance General appearance: obese, chronically ill, frail, anxious EENT: ATNC, PERRL Neck: no JVD Respiratory: Present: Clear to Ascultation Cardiology: regular, S1S2 Gastrointestinal: normal, normoactive bowel sounds Integumentary: no rash Neurologic: alert and oriented x3, CN 3-12 intact Psychiatric: mood/affect appropriate - Lab 03/20/19 08:40 03/20/19 08:40 Most recent lab results ABG pH 7.424 pH Units (7.350-7.450) 03/19/19 04:23 ABG pCO2 48.0 mm Hg 03/19/19 04:23 ABG pO2 78.3 mm Hg (80.0-90.0) L 03/19/19 04:23 ABG HCO3 30.7 mmol/L (20.0-26.0) H 03/19/19 04:23 ABG O2 Saturation 97.0 % (95.0-99.0) 03/19/19 04:23 Calcium 10.5 mg/dL (8.4-10.2) H 03/20/19 08:40 Phosphorus 3.10 mg/dL (2.5-4.5) 03/15/19 04:38 Magnesium 2.30 mg/dL (1.7-2.3) 03/15/19 04:38 - Imaging Chest x-ray: image reviewed (I reviewed CXR with patchy opacities. ) Medications & Allergies - Medications Allergies/Adverse Reactions: Allergies haloperidol [From Haldol] Adverse Reaction (Verified 03/13/18 12:10) Unknown haloperidol lactate [From Haldol] Adverse Reaction (Verified 03/13/18 12:10) Unknown Home Medications: Home Medications Medication Instructions Recorded Confirmed Last Taken Type risperiDONE [RisperDAL] 1 mg PO QAM 03/13/18 02/21/19 Unknown History Sertraline [Zoloft] 100 mg PO QDAY 08/26/18 02/21/19 Unknown History Polyethylene Glycol 3350 [Miralax 17 gm PO QDAY #30 packet 11/05/18 02/21/19 Unknown Rx 3350] Aspirin EC [Halfprin EC] 81 mg PO DAILY #30 11/19/18 02/21/19 Unknown Rx Docusate Sodium [Colace CAP] 100 mg PO BID #60 11/19/18 02/21/19 Unknown Rx Folic Acid [Folvite] 1 mg PO DAILY #30 tab 11/19/18 02/21/19 Unknown Rx Famotidine [Pepcid] 20 mg PO DAILY tablet 12/08/18 02/21/19 Unknown Rx Gabapentin [Neurontin] 100 mg PO QHS capsule 12/08/18 02/21/19 Unknown Rx Metoprolol [Lopressor TAB] 50 mg PO BID 30 Days tablet 12/08/18 02/21/19 Unknown Rx Sevelamer Carbonate [Renvela] 800 mg PO TIDWM tablet 12/08/18 02/21/19 Unknown Rx hydrALAZINE [Apresoline TAB] 100 mg PO Q8HR #120 tablet 12/08/18 02/21/19 Unknown Rx Acetaminophen [Acetaminophen TAB] 650 mg PO Q12H PRN 12/15/18 02/21/19 Unknown History Glucagon,Human Recombinant 1 mg IJ Q15MIN PRN 12/15/18 02/21/19 Unknown History [Glucagon Emergency Kit] Insulin Aspart [NovoLOG 100 See Protocol SQ QWEEK 12/15/18 02/21/19 Unknown History UNITS/ML VIAL] Active Medications: Generic Name Dose Route Start Last Admin Trade Name Freq PRN Reason Stop Dose Admin Acetaminophen 650 mg 02/21/19 22:19 03/18/19 04:53 Tylenol PO 650 mg Q4H PRN Administration Pain MILD(1-3)/Fever >100.5/HILL Albuterol/Ipratropium 1 ampul 02/24/19 20:00 03/20/19 13:29 Duoneb *Not For Prn Use* IH 1 ampul TIDRT SANCHEZ Administration Lipase/Protease/Amylase 1 each 03/05/19 14:04 Pancrejewel Barrientos 10,500 Unit FEEDTUBE PRN PRN For Clogged Feeding Tube Dextrose 50 ml 02/21/19 22:22 03/03/19 17:37 D50w (25gm) Syringe IV 50 ml PRN PRN Administration Hypoglycemia Epoetin Solitario 10,000 unit 03/18/19 16:13 Procrit SUB-Q UMA PRN anemia Famotidine 20 mg 02/23/19 10:00 03/20/19 09:58 Pepcid PO 20 mg DAILY SANCHEZ Administration Heparin Sodium (Porcine) 5,000 unit 03/04/19 22:00 03/20/19 09:58 Heparin SUB-Q 5,000 unit Q12HR SANCHEZ Administration Hydrophilic Ointment 1 applic 02/21/19 18:24 03/05/19 08:16 Vaseline Lip Therapy TP 1 applic Q2HR PRN Administration Dry Lips Sodium Chloride 100 mls @ 999 mls/hr 02/26/19 09:00 Nacl 0.9% IV UMA PRN Hypotension Norepinephrine 8 mg/ Sodium 250 mls @ 3.75 mls/hr 03/18/19 13:00 03/19/19 09:17 Chloride IV 0 mcg/min TITR SANCHEZ 0 mls/hr Titration Protocol 2 MCG/MIN Insulin Human Regular 0 units 02/26/19 12:00 03/20/19 04:50 Humulin R SUB-Q Not Given Q6HR SANCHEZ Protocol Metoprolol Tartrate 2.5 mg 02/28/19 12:06 03/15/19 05:15 Lopressor IV 2.5 mg Q4HR PRN Administration Tachycardia Multi-Ingred Cream/Lotion/Oil/Oint 1 applic 02/21/19 18:24 Artificial Tears Ophth Oint OU Q4HR PRN Dry Eye(s) Ondansetron HCl 4 mg 02/21/19 22:19 03/12/19 21:39 Zofran IV 4 mg Q8H PRN Administration Nausea And Vomiting Risperidone 1 mg 02/25/19 13:00 03/20/19 09:58 Risperdal PO 1 mg DAILY SANCHEZ Administration Scopolamine 1 each 03/13/19 04:00 03/19/19 04:18 Transderm-Scop TD 1 each Q3D SANCHEZ Administration Sertraline HCl 100 mg 02/25/19 13:00 03/20/19 09:58 Zoloft PO 100 mg DAILY SANCHEZ Administration Simple Syrup 15 ml 03/05/19 14:04 Simple Syrup FEEDTUBE PRN PRN Hypoglycemia Simple Syrup 30 ml 03/05/19 14:04 Simple Syrup FEEDTUBE PRN PRN Hypoglycemia Sodium Bicarbonate 325 mg 03/05/19 14:04 Sodium Bicarbonate FEEDTUBE PRN PRN For Clogged Feeding Tube Sodium Chloride 10 ml 02/22/19 10:00 03/20/19 09:59 Sodium Chloride Flush Syringe 10 Ml IV 10 ml BID SANCHEZ Administration Sodium Chloride 10 ml 02/21/19 22:19 02/24/19 22:00 Sodium Chloride Flush Syringe 10 Ml IV 10 ml PRN PRN Administration LINE FLUSH Tramadol HCl 50 mg 03/05/19 10:08 03/18/19 04:38 Ultram PO 50 mg Q6H PRN Administration Pain, Moderate (4-6) Trimethoprim/Sulfamethoxazole 160 mg 03/19/19 15:00 03/20/19 09:58 Bactrim 200-40 Mg/5 Ml PO 160 mg Q24HR SANCHEZ Administration
[2019-03-20] MEDS: EPOETIN ALFA 10,000 UNIT/1 ML INJ SUB-Q PRN (18:00)
[2019-03-21] MEDS: INSULIN REGULAR, HUMAN 100 UNITS/1 ML SUB-Q SCH ×4 (02:31→18:30)
--- NOTE | 2019-03-21 02:49 | XRay Report ---
CHEST 1 VIEW 03/21/2019 2:23 AM INDICATION / CLINICAL INFORMATION: follow up respiratory failure. COMPARISON: Chest x-ray 03/20/2019 FINDINGS: SUPPORT DEVICES: Left internal jugular catheter again projects over SVC. Tracheostomy lower lung fiel ds tube again projects in expected position. Leadless cardiac pacemaker lead is again noted. HEART / MEDIASTINUM: Cardiac silhouette remains enlarged for AP technique. LUNGS / PLEURA: Parenchymal consolidation within the left upper and right lower lung lynn is unchan ged characteristic for pneumonia No pneumothorax. ADDITIONAL FINDINGS: No significant additional findings. IMPRESSION: 1. Stable bilateral pneumonia Signer Name: Carlos Hanley MD Signed: 03/21/2019 2:45 AM Workstation Name: [email or web address]
[2019-03-21 06:06] LABS: Albumin 2.2 g/dL (3.9-5)
[2019-03-21 07:05] LABS: Hematocrit 22.9 % (35.5-45.6); Hemoglobin 7.4 gm/dl (11.8-15.2); Mean Corpuscular HGB Conc 33 % (32-34); Mean Corpuscular Volume 84 fl (84-94); Platelet Count 313 K/mm3 (140-440); Red Blood Count 2.72 M/mm3 (3.65-5.03); Red Cell Distribution Width 19.4 % (13.2-15.2)
[2019-03-21 08:14] LABS: Total Cells Counted 100
[2019-03-21 08:16] LABS: Anisocytosis Few; Hypochromasia Few; Ovalocytes Few; Platelet Estimate Consistent w Auto; Poikilocytosis Few; Target Cells 1+
[2019-03-21] MEDS: IPRATROPIUM/ALBUTEROL SULFATE 3 ML AMPUL.NEB IH SCH ×3 (08:51→19:52)
--- NOTE | 2019-03-21 08:55 | Progress Note ---
Assessment and Plan Blood cultures 12/26/2018 no growth today. Blood cultures 01/01/2019 no growth today. Wound cultures 01/02/2019 ESBL Kleb, MDR Ecoli and E raffinosus resistant to penicillin. 03/14 Sputum Cx: MDR Acinetobacter 03/14 BCx: NGTD 03/17 Sputum CX: MDR Acinetobacter Assessment: 63 y/o male with history of ESRD on HD, HTN, CAD S/P CABG, CVA, DM, Atrial Fib, Anemia, Hyperparathyroidism, Hypocalcemia, schizophrenia; well known to ID service from previous admissions, most recently on 12/26/2018 due to sepsis from unstagable necrotic sacral decubitus s/p OR on 01/01/2019 for open excisional debridement of necrotic sacral wound with ESBL Kleb, MDR Ecoli, treated with Meropenem 1 gm IV every 24 hours via tunneled catheter and Vancomycin 1 gm post HD Saturday, and Saturday for 6 weeks ending 02-16-19; readmitted: 1. Sepsis: secondary to MDR Acinetobacter pneumonia - Cultures with multidrug resistant Acinetobacter baumannii. Sensitive to Bactrim. Normally would consider a contaminant, however given his symptoms will treat. He is poor prognosis, as such will avoid aminoglycosides as long as possible. Will treat with Bactrim ESRD dosing. Discussed with pharmacy. If he fails this would need to consider aminoglycoside or Poly B/Minocycline. 2. Hypoxic respiratory failure - 2/2 fluid overload. Improving 3. DM2 4. Left 5th finger pressure ulcer: not infected 5. Sacral stage IV ulcer s/p extensive treatment - NOT infected currently; treated with Meropenem 1 gm IV every 24 hours via tunneled catheter and Vancomycin 1 gm post HD Saturday, and Saturday for 6 weeks ending 02-16-19 6. ESRD on HD Recommendations: - continue Bactrim ESRD dosing per pharmacy D3 of 10 - follow up blood cultures - contact precautions - consider hospice, he will continue to develop worsening resistance and we will exhaust all therapeutic options for Acinetobacter very quicky. will follow Bre Machuca MD Infectious Diseases [employer] [facility] M [phone] O [phone] Subjective Date of service: 03/21/19 Principal diagnosis: respiratory failure Interval history: Remains afebrile, alert but somnolent. Objective - Exam Narrative Exam: General appearance: somnolent in NAD Eyes: anicteric sclerae, moist conjunctivae; no lid-lag; PERRLA HENT: Atraumatic; oropharynx edentulous Neck: trach clear Lungs: CTA CV: RRR no murmur Abdomen: Soft, non-tender; +PEG Extremities: no edema, no cyanosis Skin: sacral stage IV pressure ulcer; 17cm x 10cm x 6.2cm, with undermining 4cm at 1 O'clock per wound care consult assessment - clean Psych: no agitated Left SC TLC - Constitutional Vitals: Vital Signs Temp Pulse Resp BP Pulse Ox 98.9 F 100 H 28 H 126/62 96 03/21/19 08:00 03/21/19 08:45 03/21/19 08:45 03/21/19 08:45 03/21/19 08:45 Temperature -Last 24 Hours Temperature 98.9 F Temperature 98.3 F Temperature 97.8 F Temperature 98.9 F Temperature 98.7 F Temperature 98.7 F Temperature 98.7 F Temperature 98.6 F - Labs CBC & Chem 7: 03/21/19 06:30 03/21/19 05:00 Labs: Abnormal lab results 03/20/19 03/20/19 03/20/19 Range/Units 08:40 08:40 12:13 RBC 2.61 L (3.65-5.03) M/mm3 Hgb 7.1 L (11.8-15.2) gm/dl Hct 22.0 L (35.5-45.6) % MCH 27 L (28-32) pg RDW 19.6 H (13.2-15.2) % Lymph % (Auto) 8.2 L (13.4-35.0) % Conway % (Auto) 8.3 H (0.0-7.3) % Eos % (Auto) 5.7 H (0.0-4.3) % Lymph # 0.8 L (1.2-5.4) K/mm3 Eos # 0.5 H (0.0-0.4) K/mm3 Seg Neutrophils % 77.3 H (40.0-70.0) % Seg Neuts % (Manual) (40.0-70.0) % Lymphocytes % (Manual) (13.4-35.0) % Eosinophils % (Manual) (0.0-4.3) % Lymphocytes # (Manual) (1.2-5.4) K/mm3 Eosinophils # (Manual) (0.0-0.4) K/mm3 Chloride 95.9 L (98-107) mmol/L Carbon Dioxide (22-30) mmol/L BUN 69 H (9-20) mg/dL Creatinine 2.8 H (0.8-1.5) mg/dL Glucose 115 H (75-100) mg/dL POC Glucose 144 H (70-105) Calcium 10.5 H (8.4-10.2) mg/dL Alkaline Phosphatase (35-129) units/L Albumin (3.9-5) g/dL 03/20/19 03/20/19 03/21/19 Range/Units 18:04 23:49 05:00 RBC (3.65-5.03) M/mm3 Hgb (11.8-15.2) gm/dl Hct (35.5-45.6) % MCH (28-32) pg RDW (13.2-15.2) % Lymph % (Auto) (13.4-35.0) % Conway % (Auto) (0.0-7.3) % Eos % (Auto) (0.0-4.3) % Lymph # (1.2-5.4) K/mm3 Eos # (0.0-0.4) K/mm3 Seg Neutrophils % (40.0-70.0) % Seg Neuts % (Manual) (40.0-70.0) % Lymphocytes % (Manual) (13.4-35.0) % Eosinophils % (Manual) (0.0-4.3) % Lymphocytes # (Manual) (1.2-5.4) K/mm3 Eosinophils # (Manual) (0.0-0.4) K/mm3 Chloride (98-107) mmol/L Carbon Dioxide 33 H (22-30) mmol/L BUN 43 H (9-20) mg/dL Creatinine 1.7 H (0.8-1.5) mg/dL Glucose 145 H (75-100) mg/dL POC Glucose 165 H 172 H (70-105) Calcium (8.4-10.2) mg/dL Alkaline Phosphatase 212 H (35-129) units/L Albumin 2.2 L (3.9-5) g/dL 03/21/19 03/21/19 Range/Units 06:29 06:30 RBC 2.72 L (3.65-5.03) M/mm3 Hgb 7.4 L (11.8-15.2) gm/dl Hct 22.9 L (35.5-45.6) % MCH 27 L (28-32) pg RDW 19.4 H (13.2-15.2) % Lymph % (Auto) (13.4-35.0) % Conway % (Auto) (0.0-7.3) % Eos % (Auto) (0.0-4.3) % Lymph # (1.2-5.4) K/mm3 Eos # (0.0-0.4) K/mm3 Seg Neutrophils % (40.0-70.0) % Seg Neuts % (Manual) 81.0 H (40.0-70.0) % Lymphocytes % (Manual) 8.0 L (13.4-35.0) % Eosinophils % (Manual) 8.0 H (0.0-4.3) % Lymphocytes # (Manual) 0.7 L (1.2-5.4) K/mm3 Eosinophils # (Manual) 0.7 H (0.0-0.4) K/mm3 Chloride (98-107) mmol/L Carbon Dioxide (22-30) mmol/L BUN (9-20) mg/dL Creatinine (0.8-1.5) mg/dL Glucose (75-100) mg/dL POC Glucose 156 H (70-105) Calcium (8.4-10.2) mg/dL Alkaline Phosphatase (35-129) units/L Albumin (3.9-5) g/dL
--- NOTE | 2019-03-21 09:06 | Progress Note ---
Assessment and Plan Assessment and plan: 63-year-old -Faro[place] male patient from [facility] with multiple co- morbidities including blindness, CVA, CHF, PPM/ICD, loop recorder since 2012 that is MRI compatible, IDDM type 2, sepsis left foot ulcer, afib, ESRD with complications on HD TTS, hypertension, AOCD and GERD who presented to the ED with hypotensive after intubation in the emergency room. diagnosed with fluid overload, pleural effusion. Patient has had recurrent admission in the hospital for similar reason and was recently discharged from the hospital following treatment of Severe Sepsis due to Necrotizing Unstagable sacral decubitus ulcer with ostemomylitis, has received multiple courses of broad spectrum abx. Acute hypoxic respiratory failure, status post intubation and ventilatory support Acute respiratory failure on mechanical ventilator >96 hrs Extubated ; history of tracheostomy on T piece Current management , nebulizers, Currently on trach/peg placed on 03/03off vent since 03/09, cont oxygen supplement, improving, on t piece, nebulizers, extubated, pulmonary critical following acute on chronc systolic CHF/ Acute pulmonary edema, HD per schedule Dilated CMP, EF 35-40% Continue diuresis, supportive care Acute metabolic encephalopathy, resolved, has baseline Dementia. --ESRD on hemodialysis per schedule nephrology following --Bilateral pleural effusions improved with HD --Permanent atrial fibrillation and flutter and hypercoaguable state Not on anticoagulation because of anemia thrombocytopenia rate control meds optimizeds --Diabetes mellitus type 2 Accu-Chek sliding scale coverage Insulin as needed --NSTEMI type 2 , Cardiology following --Schizophrenia:stable --Legally blind, supportive care --hypertension, Monitor BP,'s adjust medications as needed --Hypokalemia; corrected --Pulmonary hypertension; continue current management --Dysphagia s/p PEG tube; PEG tubes per protocol --Sacral decub ulcer; Wound care --Severe malnutrition /hypoalbuminemia with FTT: 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, 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 design checker following PEG placed on 01/02/19 --Multiple decubiti, different stages , s/ p colostomy Left 5th finger, stage 4 pressure ulcer Left heel, deep tissue injury Sacrum, stage 4 pressure ulcer POA Continue wound care --History of sacral osteomyelitis and LE ulcers Completed Antibiotics, contact isolation for ESBL Klebsiella pneumonia on wound culture 01/02/19 --Anemia of chronic disease sp 1 unit of prbc , stable --RUL atelectasis, probably mucous plugging --DVT prophylaxis; Lovenox --Full code status --Very poor prognosis Dispo; Awaiting placement , difficult to place ,unable to find any NH to take patient. inpatient hospice was recommended, but family is not agreeable at this time. family meeting and ethic consult has needed The high probability of a clinically significant, sudden or life threatening deterioration of the [pulmonary, neuro, renal] system(s) required my full and direct attention, intervention and personal management. The aggregate critical c are time was [33] minutes. This time is in addition to time spent performing reported procedures but includes the following: [x] Data Review and interpretation [x] Patient assessment and monitoring of vital signs [] Documentation [x] Medication orders and management Hospitalist Physical - Physical exam Narrative exam: Gen: Not in acute distress, lying in bed, on T-PIECE HEENT: Normocephalic, atraumatic Neck: supple, no JVD, TRACHEOSTOMY Heart: S1 and S2 irreg, no murmurs, rubs or gallop Lungs: DEcreased breath sounds, bilat, no crackles, Abd: soft, non tender, non distended, normal BS, PEG tube Ext: No edema, no clubbing, no cyanosis, Neuro: Non verbal Sacral wound - Constitutional Vitals: Temp Pulse Resp BP Pulse Ox 98.9 F 100 H 28 H 126/62 96 03/21/19 08:00 03/21/19 08:45 03/21/19 08:45 03/21/19 08:45 03/21/19 08:45 General appearance: Present: no acute distress, well-nourished, other (tracheostomy on T piece) Results - Labs CBC & Chem 7: 03/21/19 06:30 03/21/19 05:00 Labs: Laboratory Last Values WBC 8.3 K/mm3 (4.5-11.0) 03/21/19 06:30 RBC 2.72 M/mm3 (3.65-5.03) L 03/21/19 06:30 Hgb 7.4 gm/dl (11.8-15.2) L 03/21/19 06:30 Hct 22.9 % (35.5-45.6) L 03/21/19 06:30 MCV 84 fl (84-94) 03/21/19 06:30 MCH 27 pg (28-32) L 03/21/19 06:30 MCHC 33 % (32-34) 03/21/19 06:30 RDW 19.4 % (13.2-15.2) H 03/21/19 06:30 Plt Count 313 K/mm3 (140-440) 03/21/19 06:30 Lymph % (Auto) 8.2 % (13.4-35.0) L 03/20/19 08:40 [place] % (Auto) 8.3 % (0.0-7.3) H 03/20/19 08:40 Eos % (Auto) 5.7 % (0.0-4.3) H 03/20/19 08:40 Baso % (Auto) 0.5 % (0.0-1.8) 03/20/19 08:40 Lymph # 0.8 K/mm3 (1.2-5.4) L 03/20/19 08:40 [place] # 0.8 K/mm3 (0.0-0.8) 03/20/19 08:40 Eos # 0.5 K/mm3 (0.0-0.4) H 03/20/19 08:40 Baso # 0.0 K/mm3 (0.0-0.1) 03/20/19 08:40 Add Manual Diff Complete 03/21/19 06:30 Total Counted 100 03/21/19 06:30 Seg Neutrophils % 77.3 % (40.0-70.0) H 03/20/19 08:40 Seg Neuts % (Manual) 81.0 % (40.0-70.0) H 03/21/19 06:30 0 % 03/21/19 06:30 8.0 % (13.4-35.0) L 03/21/19 06:30 Reactive Lymphs % (Man) 0 % 03/21/19 06:30 1.0 % (0.0-7.3) 03/21/19 06:30 8.0 % (0.0-4.3) H 03/21/19 06:30 1.0 % (0.0-1.8) 03/21/19 06:30 1.0 % 03/21/19 06:30 0 % 03/21/19 06:30 0 % 03/21/19 06:30 0 % 03/21/19 06:30 Nucleated RBC % Not Reportable 03/21/19 06:30 Seg Neutrophils # 7.3 K/mm3 (1.8-7.7) 03/20/19 08:40 Seg Neutrophils # Man 6.7 K/mm3 (1.8-7.7) 03/21/19 06:30 Band Neutrophils # 0.0 K/mm3 03/21/19 06:30 0.7 K/mm3 (1.2-5.4) L 03/21/19 06:30 Abs React Lymphs (Man) 0.0 K/mm3 03/21/19 06:30 0.1 K/mm3 (0.0-0.8) 03/21/19 06:30 0.7 K/mm3 (0.0-0.4) H 03/21/19 06:30 0.1 K/mm3 (0.0-0.1) 03/21/19 06:30 0.1 K/mm3 03/21/19 06:30 0.0 K/mm3 03/21/19 06:30 0.0 K/mm3 03/21/19 06:30 Blast Cells # 0.0 K/mm3 03/21/19 06:30 WBC Morphology Not Reportable 03/21/19 06:30 Hypersegmented Neuts Not Reportable 03/21/19 06:30 Hyposegmented Neuts Not Reportable 03/21/19 06:30 Hypogranular Neuts Not Reportable 03/21/19 06:30 Not Reportable 03/21/19 06:30 Not Reportable 03/21/19 06:30 Not Reportable 03/21/19 06:30 Not Reportable 03/21/19 06:30 Not Reportable 03/21/19 06:30 Not Reportable 03/21/19 06:30 Consistent w auto 03/21/19 06:30 Not Reportable 03/21/19 06:30 Plt Clumps, EDTA Not Reportable 03/21/19 06:30 Not Reportable 03/21/19 06:30 Not Reportable 03/21/19 06:30 Not Reportable 03/21/19 06:30 Plt Morphology Comment Not Reportable 03/21/19 06:30 RBC Morphology Not Reportable 03/21/19 06:30 Dimorphic RBCs Not Reportable 03/21/19 06:30 Not Reportable 03/21/19 06:30 Few 03/21/19 06:30 Few 03/21/19 06:30 Few 03/21/19 06:30 Not Reportable 03/21/19 06:30 Not Reportable 03/21/19 06:30 Not Reportable 03/21/19 06:30 Not Reportable 03/21/19 06:30 Not Reportable 03/21/19 06:30 1+ 03/21/19 06:30 Not Reportable 03/21/19 06:30 Few 03/21/19 06:30 Not Reportable 03/21/19 06:30 Not Reportable 03/21/19 06:30 Not Reportable 03/21/19 06:30 Not Reportable 03/21/19 06:30 Not Reportable 03/21/19 06:30 Not Reportable 03/21/19 06:30 Not Reportable 03/21/19 06:30 Acanthocytes (Spur) Not Reportable 03/21/19 06:30 Rouleaux Not Reportable 03/21/19 06:30 Not Reportable 03/21/19 06:30 Not Reportable 03/21/19 06:30 Not Reportable 03/21/19 06:30 Not Reportable 03/21/19 06:30 Hem Pathologist Commnt No 03/21/19 06:30 PT 16.3 Sec. (12.2-14.9) H 03/01/19 09:39 INR 1.35 (0.87-1.13) H 03/01/19 09:39 APTT 33.7 Sec. (24.2-36.6) 02/21/19 18:30 2987.82 ng/mlDDU (0-234) H 02/22/19 05:54 POC ABG pH 7.510 (7.35-7.45) H 03/18/19 06:38 ABG pH 7.424 pH Units (7.350-7.450) 03/19/19 04:23 POC ABG pCO2 38.9 (35-45) 03/18/19 06:38 ABG pCO2 48.0 mm Hg 03/19/19 04:23 POC ABG pO2 164 (80-105) H 03/18/19 06:38 ABG pO2 78.3 mm Hg (80.0-90.0) L 03/19/19 04:23 POC ABG HCO3 31.0 (22-26 mml/L) 03/18/19 06:38 ABG HCO3 30.7 mmol/L (20.0-26.0) H 03/19/19 04:23 POC ABG Total CO2 32 (23-27mmol/L) 03/18/19 06:38 POC ABG O2 Sat 100 03/18/19 06:38 ABG O2 Saturation 97.0 % (95.0-99.0) 03/19/19 04:23 ABG O2 Content 7.9 (0.0-44) 03/19/19 04:23 POC ABG Base Excess 8 ((-2) - (+3)mmol/L) 03/18/19 06:38 ABG Base Excess 5.8 mmol/L (-2.0-3.0) H 03/19/19 04:23 ABG Hemoglobin 5.8 gm/dl (14.0-18.0) L 03/19/19 04:23 ABG Carboxyhemoglobin 2.0 % (0.0-5.0) 03/19/19 04:23 ABG Methemoglobin 0.4 % (0.0-1.5) 03/19/19 04:23 94.6 % (95.0-99.0) L 03/19/19 04:23 35 % 03/19/19 04:23 Sodium 145 mmol/L (137-145) 03/21/19 05:00 Potassium 3.9 mmol/L (3.6-5.0) 03/21/19 05:00 Chloride 99.2 mmol/L (98-107) 03/21/19 05:00 Carbon Dioxide 33 mmol/L (22-30) H 03/21/19 05:00 17 mmol/L 03/21/19 05:00 BUN 43 mg/dL (9-20) H 03/21/19 05:00 1.7 mg/dL (0.8-1.5) H 03/21/19 05:00 Estimated GFR 49 ml/min 03/21/19 05:00 25 % 03/21/19 05:00 Glucose 145 mg/dL (75-100) H 03/21/19 05:00 POC Glucose 156 (70-105) H 03/21/19 06:29 Lactic Acid 1.00 mmol/L (0.7-2.0) 02/21/19 20:58 Calcium 10.0 mg/dL (8.4-10.2) 03/21/19 05:00 Phosphorus 3.10 mg/dL (2.5-4.5) 03/15/19 04:38 Magnesium 2.00 mg/dL (1.7-2.3) 03/21/19 05:00 0.30 mg/dL (0.1-1.2) 03/21/19 05:00 AST 23 units/L (5-40) 03/21/19 05:00 ALT 18 units/L (7-56) 03/21/19 05:00 212 units/L (35-129) H 03/21/19 05:00 28.0 umol/L (25-60) 02/21/19 20:04 64 units/L (55-170) 02/22/19 03:42 CK-MB (CK-2) 3.7 ng/mL (0.0-4.0) 02/22/19 03:42 CK-MB (CK-2) Rel Index 5.7 (0-4) H 02/22/19 03:42 0.193 ng/mL (0.00-0.029) H* 02/22/19 03:42 6.7 g/dL (6.3-8.2) 03/21/19 05:00 2.2 g/dL (3.9-5) L 03/21/19 05:00 0.5 % 03/21/19 05:00 Triglycerides 51 mg/dL (2-149) 02/21/19 18:30 Cholesterol 82 mg/dL (50-199) 02/21/19 18:30 36 mg/dL (50-130) L 02/21/19 18:30 40 mg/dL (40-59) 02/21/19 18:30 2.05 % 02/21/19 18:30 TSH 2.760 mlU/mL (0.270-4.200) 02/21/19 20:04 PTH Intact 267.6 pg/mL (15-65) H 03/02/19 05:15 Salicylates < 0.3 mg/dL (2.8-20.0) L 02/21/19 20:04 Acetaminophen < 5.0 ug/mL (10.0-30.0) L 02/21/19 20:04 Hepatitis A IgM Ab Non-reactive (NonReactive) 02/23/19 11:20 Hep Bs Antigen Non-reactive (Negative) 02/23/19 11:20 Hep B Core IgM Ab Non-reactive (NonReactive) 02/23/19 11:20 Non-reactive (NonReactive) 02/23/19 11:20 Blood Type O POSITIVE 03/19/19 08:54 Antibody Screen Negative 03/19/19 08:54 Crossmatch See Detail 03/19/19 08:54 Active Medications - Current Medications Current Medications: Generic Name Dose Route Start Last Admin Trade Name Freq PRN Reason Stop Dose Admin Acetaminophen 650 mg 02/21/19 22:19 03/18/19 04:53 Tylenol PO 650 mg Q4H PRN Administration Pain MILD(1-3)/Fever >100.5/HILL Albuterol/Ipratropium 1 ampul 02/24/19 20:00 03/21/19 08:51 Duoneb *Not For Prn Use* IH 1 ampul TIDRT SANCHEZ Administration Lipase/Protease/Amylase 1 each 03/05/19 14:04 Pancrejewel Barrientos 10,500 Unit FEEDTUBE PRN PRN For Clogged Feeding Tube Dextrose 50 ml 02/21/19 22:22 03/03/19 17:37 D50w (25gm) Syringe IV 50 ml PRN PRN Administration Hypoglycemia Epoetin Solitario 10,000 unit 03/18/19 16:13 03/20/19 18:00 Procrit SUB-Q 10,000 unit UMA PRN Administration anemia Famotidine 20 mg 02/23/19 10:00 03/20/19 09:58 Pepcid PO 20 mg DAILY SANCHEZ Administration Heparin Sodium (Porcine) 5,000 unit 03/04/19 22:00 03/20/19 21:04 Heparin SUB-Q 5,000 unit Q12HR SANCHEZ Administration Hydrophilic Ointment 1 applic 02/21/19 18:24 03/05/19 08:16 Vaseline Lip Therapy TP 1 applic Q2HR PRN Administration Dry Lips Sodium Chloride 100 mls @ 999 mls/hr 02/26/19 09:00 Nacl 0.9% IV UMA PRN Hypotension Norepinephrine 8 mg/ Sodium 250 mls @ 3.75 mls/hr 03/18/19 13:00 03/19/19 09:17 Chloride IV 0 mcg/min TITR SANCHEZ 0 mls/hr Titration Protocol 2 MCG/MIN Insulin Human Regular 0 units 02/26/19 12:00 03/21/19 06:18 Humulin R SUB-Q Not Given Q6HR SANCHEZ Protocol Metoprolol Tartrate 2.5 mg 02/28/19 12:06 03/15/19 05:15 Lopressor IV 2.5 mg Q4HR PRN Administration Tachycardia Multi-Ingred Cream/Lotion/Oil/Oint 1 applic 02/21/19 18:24 Artificial Tears Ophth Oint OU Q4HR PRN Dry Eye(s) Ondansetron HCl 4 mg 02/21/19 22:19 03/12/19 21:39 Zofran IV 4 mg Q8H PRN Administration Nausea And Vomiting Risperidone 1 mg 02/25/19 13:00 03/20/19 09:58 Risperdal PO 1 mg DAILY SANCHEZ Administration Scopolamine 1 each 03/13/19 04:00 03/19/19 04:18 Transderm-Scop TD 1 each Q3D SANCHEZ Administration Sertraline HCl 100 mg 02/25/19 13:00 03/20/19 09:58 Zoloft PO 100 mg DAILY SANCHEZ Administration Simple Syrup 15 ml 03/05/19 14:04 Simple Syrup FEEDTUBE PRN PRN Hypoglycemia Simple Syrup 30 ml 03/05/19 14:04 Simple Syrup FEEDTUBE PRN PRN Hypoglycemia Sodium Bicarbonate 325 mg 03/05/19 14:04 Sodium Bicarbonate FEEDTUBE PRN PRN For Clogged Feeding Tube Sodium Chloride 10 ml 02/22/19 10:00 03/20/19 21:04 Sodium Chloride Flush Syringe 10 Ml IV 10 ml BID SANCHEZ Administration Sodium Chloride 10 ml 02/21/19 22:19 02/24/19 22:00 Sodium Chloride Flush Syringe 10 Ml IV 10 ml PRN PRN Administration LINE FLUSH Tramadol HCl 50 mg 03/05/19 10:08 03/18/19 04:38 Ultram PO 50 mg Q6H PRN Administration Pain, Moderate (4-6) Trimethoprim/Sulfamethoxazole 160 mg 03/19/19 15:00 03/20/19 09:58 Bactrim 200-40 Mg/5 Ml PO 160 mg Q24HR SANCHEZ Administration Nutrition/Malnutrition Assess - Dietary Evaluation Nutrition/Malnutrition Findings: Nutrition Notes Start: 02/22/19 12:51 Freq: Status: Active Protocol: Document 03/19/19 11:10 LM (Rec: 03/19/19 11:17 LM [email or web address]) Nutrition Notes Initial or Follow up Reassessment Current Diagnosis Diabetes,Hypertension Other Pertinent Diagnosis Sacral PU, ESRD on HD (T/Thurs /Sat), Schizophrenia,Blind in L eye,S/P trach Current Diet Vital AF 1.2 at 70 ml/hr Labs/Tests Reviewed Pertinent Medications Humulin Height 5 ft 10 in Weight 88.75 kg [place] Body Weight (kg) 75.45 BMI 28.0 Subjective/Other Information Vital AF running 75 ml/hr at time of visit. Pt toleating TF . Percent of energy/protein needs met: 100%/100% Burn Absent Trauma Absent #2 Nutrition Diagnosis Increased nutrient needs ( specify in comment below) Diagnosis Progress(for reassessment Continues documentation) #1 Nutrition Diagnosis Inadequate oral intake Diagnosis Progress(for reassessment Continues documentation) Is patient on ventilator? Yes Is Patient Ambulatory and/or Out of Bed No REE-([facility]-confined to bed) 2024.576 Kcal/Kg value to use for calculation 18 Approximate Energy Requirements Using 1598 kcal/Kg Calculation Used for Recommendations Kcal/kg Additional Notes Protein Needs: 106-177g (1.2- 2g/kg) Fluid Needs: 1 ml/kcal Nutrition Intervention Change Diet Order: Continue TF Nutrition Support: Vital 1.2 at 70 ml/hr Water flush of 100 mls q 4 hrs Kcal 2,016 Protein (gm) 126 Fluid (mL) 1,362 Add Supplement/Snack (indicate name/kcal Abhilash BID /protein ) Provides kCal: 190 Provides Protein (gm) 5 Goal #1 TF tolerance Goal #2 Continue to meet at least 80% of calorie and protein needs via TF Anticipated Discharge Needs: Unable to determine at this time Follow-Up By: 03/26/19 Additional Comments F/U for TF rate/tolerance
[2019-03-21] MEDS: risperiDONE 1 MG TAB PO SCH (09:39)
[2019-03-21] MEDS: HEPARIN 5,000 UNIT/1 ML VIAL SUB-Q SCH ×2 (09:39→22:23)
[2019-03-21] MEDS: SERTRALINE 100 MG TAB PO SCH (09:39)
[2019-03-21] MEDS: FAMOTIDINE 20 MG TAB PO SCH (09:40)
[2019-03-21] MEDS: SULFAMETHOXAZOLE/TRIMETHOPRIM 200-40 MG/5 ML ORAL LIQD 30 ML PO SCH (09:41)
--- NOTE | 2019-03-21 12:06 | Progress Note ---
Assessment and Plan 63 y/o male with multiple medical issues admitted with altered mental status, acute respiratory failure requiring mechanical ventilation 1. Multi resistant acinetobacter found in sputum. ID aware. Plan in place. Likely secondary from multiple hospital stays with multiple courses of abx. 2. Placement on hold now given acute clinical change 3. If patient spikes another temp, will need repeat blood cultures. Does not make urine. 4. Remained stable on T-piece, transfer back to [facility] and then restart placement process. 5. Agree with ID assessment, however, no family willing to make this decision and ethics committee will not do that either. His nephew is an employee here in the lab, but I have not seen anyone at the bedside. Subjective Date of service: 03/21/19 Principal diagnosis: respiratory failure Interval history: Has tolerated T-piece now 24 hours. Stable. no family present. REviewed ID note. Objective Vital Signs - 12hr 03/21/19 03/21/19 03/21/19 00:15 00:30 00:45 Temperature Pulse Rate 103 H 96 H 103 H Pulse Rate [ From Monitor] Respiratory 27 H 25 H 25 H Rate Blood Pressure 117/69 111/64 111/64 O2 Sat by Pulse 96 95 97 Oximetry 03/21/19 03/21/19 03/21/19 01:00 01:15 01:30 Temperature Pulse Rate 103 H 95 H 105 H Pulse Rate [ From Monitor] Respiratory 28 H 28 H 27 H Rate Blood Pressure 116/61 110/63 120/61 O2 Sat by Pulse 95 93 94 Oximetry 03/21/19 03/21/19 03/21/19 01:45 02:01 02:15 Temperature Pulse Rate 105 H 110 H 106 H Pulse Rate [ From Monitor] Respiratory 26 H 29 H 26 H Rate Blood Pressure 124/66 132/64 132/64 O2 Sat by Pulse 95 97 95 Oximetry 03/21/19 03/21/19 03/21/19 02:31 02:45 03:00 Temperature Pulse Rate 96 H 115 H 106 H Pulse Rate [ From Monitor] Respiratory 24 22 25 H Rate Blood Pressure 137/71 137/71 125/62 O2 Sat by Pulse 97 96 97 Oximetry 03/21/19 03/21/19 03/21/19 03:15 03:30 03:45 Temperature Pulse Rate 118 H 100 H 104 H Pulse Rate [ From Monitor] Respiratory 13 22 25 H Rate Blood Pressure 125/62 123/75 109/67 O2 Sat by Pulse 94 97 97 Oximetry 03/21/19 03/21/19 03/21/19 04:00 04:01 04:15 Temperature 98.3 F Pulse Rate 101 H 116 H 106 H Pulse Rate [ 101 H From Monitor] Respiratory 24 24 Rate Blood Pressure 132/76 116/63 O2 Sat by Pulse 96 99 Oximetry 03/21/19 03/21/19 03/21/19 04:31 04:45 05:00 Temperature Pulse Rate 109 H 95 H 98 H Pulse Rate [ From Monitor] Respiratory 26 H 16 25 H Rate Blood Pressure 102/34 102/34 117/61 O2 Sat by Pulse 93 100 100 Oximetry 03/21/19 03/21/19 03/21/19 05:15 05:30 05:45 Temperature Pulse Rate 111 H 106 H 103 H Pulse Rate [ From Monitor] Respiratory 25 H 27 H 31 H Rate Blood Pressure 117/61 120/65 120/65 O2 Sat by Pulse 100 97 94 Oximetry 03/21/19 03/21/19 03/21/19 06:00 06:15 06:30 Temperature Pulse Rate 102 H 111 H 103 H Pulse Rate [ From Monitor] Respiratory 28 H 28 H 25 H Rate Blood Pressure 123/69 122/65 128/65 O2 Sat by Pulse 91 94 94 Oximetry 03/21/19 03/21/19 03/21/19 06:45 07:00 07:15 Temperature Pulse Rate 119 H 105 H 102 H Pulse Rate [ From Monitor] Respiratory 27 H 29 H 32 H Rate Blood Pressure 118/64 131/65 127/65 O2 Sat by Pulse 95 95 94 Oximetry 03/21/19 03/21/19 03/21/19 07:30 07:45 08:00 Temperature 98.9 F Pulse Rate 116 H 109 H 100 H Pulse Rate [ 100 H From Monitor] Respiratory 30 H 22 28 H Rate Blood Pressure 124/62 124/62 126/62 O2 Sat by Pulse 95 99 96 Oximetry 03/21/19 03/21/19 03/21/19 08:08 08:15 08:30 Temperature Pulse Rate 110 H 98 H 108 H Pulse Rate [ From Monitor] Respiratory 26 H 21 Rate Blood Pressure 117/62 119/61 O2 Sat by Pulse 99 99 Oximetry 03/21/19 03/21/19 03/21/19 08:45 09:01 09:15 Temperature Pulse Rate 100 H 109 H 100 H Pulse Rate [ From Monitor] Respiratory 28 H 32 H 34 H Rate Blood Pressure 126/62 137/71 115/61 O2 Sat by Pulse 96 97 94 Oximetry 03/21/19 03/21/19 03/21/19 09:30 09:45 10:00 Temperature Pulse Rate 106 H 114 H 101 H Pulse Rate [ From Monitor] Respiratory 26 H 24 25 H Rate Blood Pressure 112/58 116/62 121/58 O2 Sat by Pulse 98 99 98 Oximetry 03/21/19 03/21/19 03/21/19 10:15 10:30 10:45 Temperature Pulse Rate 103 H 111 H 103 H Pulse Rate [ From Monitor] Respiratory 26 H 26 H 26 H Rate Blood Pressure 115/60 119/63 116/61 O2 Sat by Pulse 98 98 98 Oximetry 03/21/19 11:00 Temperature Pulse Rate 106 H Pulse Rate [ From Monitor] Respiratory 25 H Rate Blood Pressure 111/64 O2 Sat by Pulse 99 Oximetry Constitutional: no acute distress, alert Eyes: non-icteric ENT: oropharynx moist Neck: supple Effort: normal Ascultation: Bilateral: diminished breath sounds, other (coarse BS bilaterally) Percussion: Bilateral: not dull Cardiovascular: other (tachy, RR; no mrg) Gastrointestinal: normoactive bowel sounds, soft, non-tender, non-distended, other (ostomy in place, brown stool) Extremities: no cyanosis, no edema, pink and warm Neurologic: other (mild weakness LUE, o/w nonfocal) Psychiatric: other (unable to assess) CBC and BMP: 03/21/19 06:30 03/21/19 05:00 ABG, PT/INR, D-dimer: ABG POC ABG pH 7.510 (7.35-7.45) H 03/18/19 06:38 ABG pH 7.424 pH Units (7.350-7.450) 03/19/19 04:23 POC ABG pCO2 38.9 (35-45) 03/18/19 06:38 ABG pCO2 48.0 mm Hg 03/19/19 04:23 POC ABG pO2 164 (80-105) H 03/18/19 06:38 ABG pO2 78.3 mm Hg (80.0-90.0) L 03/19/19 04:23 POC ABG HCO3 31.0 (22-26 mml/L) 03/18/19 06:38 POC ABG Total CO2 32 (23-27mmol/L) 03/18/19 06:38 POC ABG O2 Sat 100 03/18/19 06:38 ABG O2 Saturation 97.0 % (95.0-99.0) 03/19/19 04:23 PT/INR, D-dimer PT 16.3 Sec. (12.2-14.9) H 03/01/19 09:39 INR 1.35 (0.87-1.13) H 03/01/19 09:39 2987.82 ng/mlDDU (0-234) H 02/22/19 05:54 Abnormal lab findings: Abnormal Labs 02/21/19 02/21/19 02/21/19 18:30 18:30 18:30 WBC RBC 3.26 L Hgb 8.8 L Hct 29.0 L MCH 27 L MCHC 30 L RDW 19.1 H Lymph % (Auto) 6.1 L [place] % (Auto) Eos % (Auto) Lymph # 0.4 L [place] # Eos # Seg Neutrophils % 86.2 H Seg Neuts % (Manual) Lymphocytes % (Manual) Eosinophils % (Manual) Seg Neutrophils # Lymphocytes # (Manual) Eosinophils # (Manual) PT INR D-Dimer POC ABG pH POC ABG pCO2 POC ABG pO2 ABG pO2 ABG HCO3 ABG Base Excess ABG Hemoglobin Oxyhemoglobin Sodium 133 L Potassium 3.3 L Chloride 93.1 L Carbon Dioxide 33 H BUN Creatinine Glucose 161 H POC Glucose Calcium Phosphorus ALT Alkaline Phosphatase 136 H Total Creatine Kinase 37 L CK-MB (CK-2) Rel Index Troponin T 0.192 H* Albumin 2.4 L LDL Cholesterol Direct 36 L PTH Intact Salicylates Acetaminophen Crossmatch 02/21/19 02/21/19 02/21/19 18:42 20:04 20:04 WBC RBC Hgb Hct MCH MCHC RDW Lymph % (Auto) [place] % (Auto) Eos % (Auto) Lymph # [place] # Eos # Seg Neutrophils % Seg Neuts % (Manual) Lymphocytes % (Manual) Eosinophils % (Manual) Seg Neutrophils # Lymphocytes # (Manual) Eosinophils # (Manual) PT INR D-Dimer POC ABG pH POC ABG pCO2 56.7 H POC ABG pO2 291 H ABG pO2 ABG HCO3 ABG Base Excess ABG Hemoglobin Oxyhemoglobin Sodium Potassium Chloride Carbon Dioxide BUN Creatinine Glucose POC Glucose Calcium Phosphorus ALT Alkaline Phosphatase Total Creatine Kinase CK-MB (CK-2) Rel Index Troponin T Albumin LDL Cholesterol Direct PTH Intact Salicylates < 0.3 L Acetaminophen < 5.0 L Crossmatch 02/21/19 02/22/19 02/22/19 22:35 03:42 03:42 WBC RBC 3.20 L Hgb 8.8 L Hct 27.6 L MCH MCHC RDW 18.9 H Lymph % (Auto) 7.4 L [place] % (Auto) Eos % (Auto) Lymph # 0.7 L [place] # Eos # Seg Neutrophils % 84.7 H Seg Neuts % (Manual) Lymphocytes % (Manual) Eosinophils % (Manual) Seg Neutrophils # Lymphocytes # (Manual) Eosinophils # (Manual) PT INR D-Dimer POC ABG pH POC ABG pCO2 POC ABG pO2 ABG pO2 ABG HCO3 ABG Base Excess ABG Hemoglobin Oxyhemoglobin Sodium 134 L Potassium 2.6 L* D Chloride Carbon Dioxide BUN Creatinine Glucose POC Glucose Calcium Phosphorus ALT Alkaline Phosphatase Total Creatine Kinase CK-MB (CK-2) Rel Index 5.2 H Troponin T 0.202 H* Albumin LDL Cholesterol Direct PTH Intact Salicylates Acetaminophen Crossmatch 02/22/19 02/22/19 02/22/19 03:42 05:54 09:04 WBC RBC Hgb Hct MCH MCHC RDW Lymph % (Auto) [place] % (Auto) Eos % (Auto) Lymph # [place] # Eos # Seg Neutrophils % Seg Neuts % (Manual) Lymphocytes % (Manual) Eosinophils % (Manual) Seg Neutrophils # Lymphocytes # (Manual) Eosinophils # (Manual) PT INR D-Dimer 2987.82 H POC ABG pH 7.451 H POC ABG pCO2 POC ABG pO2 ABG pO2 ABG HCO3 ABG Base Excess ABG Hemoglobin Oxyhemoglobin Sodium Potassium Chloride Carbon Dioxide BUN Creatinine Glucose POC Glucose Calcium Phosphorus ALT Alkaline Phosphatase Total Creatine Kinase CK-MB (CK-2) Rel Index 5.7 H Troponin T 0.193 H* Albumin LDL Cholesterol Direct PTH Intact Salicylates Acetaminophen Crossmatch 02/22/19 02/22/19 02/23/19 10:36 23:56 00:52 WBC RBC Hgb Hct MCH MCHC RDW Lymph % (Auto) [place] % (Auto) Eos % (Auto) Lymph # [place] # Eos # Seg Neutrophils % Seg Neuts % (Manual) Lymphocytes % (Manual) Eosinophils % (Manual) Seg Neutrophils # Lymphocytes # (Manual) Eosinophils # (Manual) PT INR D-Dimer POC ABG pH POC ABG pCO2 POC ABG pO2 ABG pO2 ABG HCO3 ABG Base Excess ABG Hemoglobin Oxyhemoglobin Sodium Potassium 3.1 L Chloride Carbon Dioxide BUN Creatinine Glucose POC Glucose 58 L 111 H Calcium Phosphorus ALT Alkaline Phosphatase Total Creatine Kinase CK-MB (CK-2) Rel Index Troponin T Albumin LDL Cholesterol Direct PTH Intact Salicylates Acetaminophen Crossmatch 02/23/19 02/23/19 02/23/19 05:00 06:35 14:26 WBC RBC Hgb Hct MCH MCHC RDW Lymph % (Auto) [place] % (Auto) Eos % (Auto) Lymph # [place] # Eos # Seg Neutrophils % Seg Neuts % (Manual) Lymphocytes % (Manual) Eosinophils % (Manual) Seg Neutrophils # Lymphocytes # (Manual) Eosinophils # (Manual) PT INR D-Dimer POC ABG pH POC ABG pCO2 POC ABG pO2 ABG pO2 ABG HCO3 ABG Base Excess ABG Hemoglobin Oxyhemoglobin Sodium 135 L Potassium 3.1 L Chloride Carbon Dioxide BUN 21 H Creatinine 2.0 H Glucose 57 L POC Glucose 64 L 62 L Calcium Phosphorus ALT Alkaline Phosphatase Total Creatine Kinase CK-MB (CK-2) Rel Index Troponin T Albumin LDL Cholesterol Direct PTH Intact Salicylates Acetaminophen Crossmatch 02/24/19 02/24/19 02/24/19 02:11 04:12 04:55 WBC RBC 2.84 L Hgb 7.8 L Hct 24.5 L MCH MCHC RDW 19.5 H Lymph % (Auto) [place] % (Auto) Eos % (Auto) Lymph # [place] # Eos # Seg Neutrophils % Seg Neuts % (Manual) Lymphocytes % (Manual) Eosinophils % (Manual) Seg Neutrophils # Lymphocytes # (Manual) Eosinophils # (Manual) PT INR D-Dimer POC ABG pH 7.511 H POC ABG pCO2 33.9 L POC ABG pO2 62 L ABG pO2 ABG HCO3 ABG Base Excess ABG Hemoglobin Oxyhemoglobin Sodium Potassium Chloride Carbon Dioxide BUN Creatinine Glucose POC Glucose 69 L Calcium Phosphorus ALT Alkaline Phosphatase Total Creatine Kinase CK-MB (CK-2) Rel Index Troponin T Albumin LDL Cholesterol Direct PTH Intact Salicylates Acetaminophen Crossmatch 02/24/19 02/24/19 02/25/19 04:55 05:41 04:45 WBC RBC Hgb Hct MCH MCHC RDW Lymph % (Auto) [place] % (Auto) Eos % (Auto) Lymph # [place] # Eos # Seg Neutrophils % Seg Neuts % (Manual) Lymphocytes % (Manual) Eosinophils % (Manual) Seg Neutrophils # Lymphocytes # (Manual) Eosinophils # (Manual) PT INR D-Dimer POC ABG pH 7.466 H POC ABG pCO2 POC ABG pO2 75 L ABG pO2 ABG HCO3 ABG Base Excess ABG Hemoglobin Oxyhemoglobin Sodium Potassium Chloride Carbon Dioxide BUN Creatinine 1.8 H Glucose 73 L POC Glucose 127 H Calcium Phosphorus ALT Alkaline Phosphatase Total Creatine Kinase CK-MB (CK-2) Rel Index Troponin T Albumin LDL Cholesterol Direct PTH Intact Salicylates Acetaminophen Crossmatch 02/25/19 02/25/19 02/26/19 16:34 21:33 03:45 WBC RBC 2.96 L Hgb 8.0 L Hct 25.8 L MCH 27 L MCHC 31 L RDW 20.0 H Lymph % (Auto) [place] % (Auto) Eos % (Auto) Lymph # [place] # Eos # Seg Neutrophils % Seg Neuts % (Manual) Lymphocytes % (Manual) Eosinophils % (Manual) Seg Neutrophils # Lymphocytes # (Manual) Eosinophils # (Manual) PT INR D-Dimer POC ABG pH POC ABG pCO2 POC ABG pO2 ABG pO2 ABG HCO3 ABG Base Excess ABG Hemoglobin Oxyhemoglobin Sodium Potassium Chloride Carbon Dioxide BUN Creatinine Glucose POC Glucose 141 H 106 H Calcium Phosphorus ALT Alkaline Phosphatase Total Creatine Kinase CK-MB (CK-2) Rel Index Troponin T Albumin LDL Cholesterol Direct PTH Intact Salicylates Acetaminophen Crossmatch 02/26/19 02/26/19 02/26/19 03:45 04:13 07:53 WBC RBC Hgb Hct MCH MCHC RDW Lymph % (Auto) [place] % (Auto) Eos % (Auto) Lymph # [place] # Eos # Seg Neutrophils % Seg Neuts % (Manual) Lymphocytes % (Manual) Eosinophils % (Manual) Seg Neutrophils # Lymphocytes # (Manual) Eosinophils # (Manual) PT INR D-Dimer POC ABG pH 7.470 H POC ABG pCO2 POC ABG pO2 ABG pO2 ABG HCO3 ABG Base Excess ABG Hemoglobin Oxyhemoglobin Sodium Potassium Chloride Carbon Dioxide BUN Creatinine 1.8 H Glucose POC Glucose 110 H Calcium Phosphorus ALT Alkaline Phosphatase Total Creatine Kinase CK-MB (CK-2) Rel Index Troponin T Albumin LDL Cholesterol Direct PTH Intact Salicylates Acetaminophen Crossmatch 02/26/19 02/26/19 02/27/19 11:56 17:43 00:12 WBC RBC Hgb Hct MCH MCHC RDW Lymph % (Auto) [place] % (Auto) Eos % (Auto) Lymph # [place] # Eos # Seg Neutrophils % Seg Neuts % (Manual) Lymphocytes % (Manual) Eosinophils % (Manual) Seg Neutrophils # Lymphocytes # (Manual) Eosinophils # (Manual) PT INR D-Dimer POC ABG pH POC ABG pCO2 POC ABG pO2 ABG pO2 ABG HCO3 ABG Base Excess ABG Hemoglobin Oxyhemoglobin Sodium Potassium Chloride Carbon Dioxide BUN Creatinine Glucose POC Glucose 112 H 127 H 127 H Calcium Phosphorus ALT Alkaline Phosphatase Total Creatine Kinase CK-MB (CK-2) Rel Index Troponin T Albumin LDL Cholesterol Direct PTH Intact Salicylates Acetaminophen Crossmatch 02/27/19 02/27/19 02/27/19 04:35 13:15 18:02 WBC RBC Hgb Hct MCH MCHC RDW Lymph % (Auto) [place] % (Auto) Eos % (Auto) Lymph # [place] # Eos # Seg Neutrophils % Seg Neuts % (Manual) Lymphocytes % (Manual) Eosinophils % (Manual) Seg Neutrophils # Lymphocytes # (Manual) Eosinophils # (Manual) PT INR D-Dimer POC ABG pH 7.483 H POC ABG pCO2 POC ABG pO2 61 L ABG pO2 ABG HCO3 ABG Base Excess ABG Hemoglobin Oxyhemoglobin Sodium Potassium Chloride Carbon Dioxide BUN Creatinine Glucose POC Glucose 143 H 106 H Calcium Phosphorus ALT Alkaline Phosphatase Total Creatine Kinase CK-MB (CK-2) Rel Index Troponin T Albumin LDL Cholesterol Direct PTH Intact Salicylates Acetaminophen Crossmatch 02/28/19 02/28/19 02/28/19 05:50 11:59 17:52 WBC RBC Hgb Hct MCH MCHC RDW Lymph % (Auto) [place] % (Auto) Eos % (Auto) Lymph # [place] # Eos # Seg Neutrophils % Seg Neuts % (Manual) Lymphocytes % (Manual) Eosinophils % (Manual) Seg Neutrophils # Lymphocytes # (Manual) Eosinophils # (Manual) PT INR D-Dimer POC ABG pH POC ABG pCO2 POC ABG pO2 ABG pO2 ABG HCO3 ABG Base Excess ABG Hemoglobin Oxyhemoglobin Sodium Potassium Chloride Carbon Dioxide BUN Creatinine Glucose POC Glucose 134 H 128 H 142 H Calcium Phosphorus ALT Alkaline Phosphatase Total Creatine Kinase CK-MB (CK-2) Rel Index Troponin T Albumin LDL Cholesterol Direct PTH Intact Salicylates Acetaminophen Crossmatch 02/28/19 03/01/19 03/01/19 23:13 05:40 09:39 WBC RBC Hgb Hct MCH MCHC RDW Lymph % (Auto) [place] % (Auto) Eos % (Auto) Lymph # [place] # Eos # Seg Neutrophils % Seg Neuts % (Manual) Lymphocytes % (Manual) Eosinophils % (Manual) Seg Neutrophils # Lymphocytes # (Manual) Eosinophils # (Manual) PT 16.3 H INR 1.35 H D-Dimer POC ABG pH POC ABG pCO2 POC ABG pO2 ABG pO2 ABG HCO3 ABG Base Excess ABG Hemoglobin Oxyhemoglobin Sodium Potassium Chloride Carbon Dioxide BUN Creatinine Glucose POC Glucose 112 H 111 H Calcium Phosphorus ALT Alkaline Phosphatase Total Creatine Kinase CK-MB (CK-2) Rel Index Troponin T Albumin LDL Cholesterol Direct PTH Intact Salicylates Acetaminophen Crossmatch 03/01/19 03/01/19 03/01/19 11:56 13:54 17:59 WBC RBC Hgb Hct MCH MCHC RDW Lymph % (Auto) [place] % (Auto) Eos % (Auto) Lymph # [place] # Eos # Seg Neutrophils % Seg Neuts % (Manual) Lymphocytes % (Manual) Eosinophils % (Manual) Seg Neutrophils # Lymphocytes # (Manual) Eosinophils # (Manual) PT INR D-Dimer POC ABG pH POC ABG pCO2 POC ABG pO2 ABG pO2 ABG HCO3 ABG Base Excess ABG Hemoglobin Oxyhemoglobin Sodium Potassium Chloride Carbon Dioxide BUN 33 H Creatinine 2.8 H D Glucose 176 H POC Glucose 199 H 147 H Calcium Phosphorus ALT Alkaline Phosphatase Total Creatine Kinase CK-MB (CK-2) Rel Index Troponin T Albumin LDL Cholesterol Direct PTH Intact Salicylates Acetaminophen Crossmatch 03/02/19 03/02/19 03/02/19 05:15 05:15 05:15 WBC RBC 2.73 L Hgb 7.4 L Hct 23.0 L MCH 27 L MCHC RDW 19.9 H Lymph % (Auto) [place] % (Auto) 7.9 H Eos % (Auto) 7.6 H Lymph # 1.0 L [place] # Eos # 0.5 H Seg Neutrophils % Seg Neuts % (Manual) Lymphocytes % (Manual) Eosinophils % (Manual) Seg Neutrophils # Lymphocytes # (Manual) Eosinophils # (Manual) PT INR D-Dimer POC ABG pH POC ABG pCO2 POC ABG pO2 ABG pO2 ABG HCO3 ABG Base Excess ABG Hemoglobin Oxyhemoglobin Sodium Potassium Chloride Carbon Dioxide BUN 43 H Creatinine 3.2 H Glucose POC Glucose Calcium Phosphorus 2.30 L ALT Alkaline Phosphatase Total Creatine Kinase CK-MB (CK-2) Rel Index Troponin T Albumin LDL Cholesterol Direct PTH Intact 267.6 H Salicylates Acetaminophen Crossmatch 03/02/19 03/02/19 03/03/19 12:32 18:20 13:30 WBC RBC Hgb Hct MCH MCHC RDW Lymph % (Auto) [place] % (Auto) Eos % (Auto) Lymph # [place] # Eos # Seg Neutrophils % Seg Neuts % (Manual) Lymphocytes % (Manual) Eosinophils % (Manual) Seg Neutrophils # Lymphocytes # (Manual) Eosinophils # (Manual) PT INR D-Dimer POC ABG pH POC ABG pCO2 POC ABG pO2 ABG pO2 ABG HCO3 ABG Base Excess ABG Hemoglobin Oxyhemoglobin Sodium Potassium Chloride 97.3 L Carbon Dioxide BUN 26 H Creatinine 2.2 H Glucose 73 L POC Glucose 111 H 156 H Calcium Phosphorus ALT Alkaline Phosphatase Total Creatine Kinase CK-MB (CK-2) Rel Index Troponin T Albumin LDL Cholesterol Direct PTH Intact Salicylates Acetaminophen Crossmatch 03/04/19 03/04/19 03/04/19 00:02 05:37 05:40 WBC RBC 2.63 L Hgb 7.2 L Hct 22.2 L MCH MCHC RDW 20.2 H Lymph % (Auto) 10.5 L [place] % (Auto) Eos % (Auto) 4.6 H Lymph # 0.7 L [place] # Eos # Seg Neutrophils % 76.9 H Seg Neuts % (Manual) Lymphocytes % (Manual) Eosinophils % (Manual) Seg Neutrophils # Lymphocytes # (Manual) Eosinophils # (Manual) PT INR D-Dimer POC ABG pH POC ABG pCO2 POC ABG pO2 ABG pO2 ABG HCO3 ABG Base Excess ABG Hemoglobin Oxyhemoglobin Sodium Potassium Chloride Carbon Dioxide BUN Creatinine Glucose POC Glucose 136 H 123 H Calcium Phosphorus ALT Alkaline Phosphatase Total Creatine Kinase CK-MB (CK-2) Rel Index Troponin T Albumin LDL Cholesterol Direct PTH Intact Salicylates Acetaminophen Crossmatch 03/04/19 03/04/19 03/04/19 05:40 11:39 23:20 WBC RBC Hgb Hct MCH MCHC RDW Lymph % (Auto) [place] % (Auto) Eos % (Auto) Lymph # [place] # Eos # Seg Neutrophils % Seg Neuts % (Manual) Lymphocytes % (Manual) Eosinophils % (Manual) Seg Neutrophils # Lymphocytes # (Manual) Eosinophils # (Manual) PT INR D-Dimer POC ABG pH POC ABG pCO2 POC ABG pO2 ABG pO2 ABG HCO3 ABG Base Excess ABG Hemoglobin Oxyhemoglobin Sodium Potassium Chloride Carbon Dioxide BUN 34 H Creatinine 2.7 H Glucose 114 H POC Glucose 175 H 151 H Calcium Phosphorus ALT Alkaline Phosphatase Total Creatine Kinase CK-MB (CK-2) Rel Index Troponin T Albumin LDL Cholesterol Direct PTH Intact Salicylates Acetaminophen Crossmatch 03/05/19 03/05/19 03/05/19 05:37 12:08 17:11 WBC RBC Hgb Hct MCH MCHC RDW Lymph % (Auto) [place] % (Auto) Eos % (Auto) Lymph # [place] # Eos # Seg Neutrophils % Seg Neuts % (Manual) Lymphocytes % (Manual) Eosinophils % (Manual) Seg Neutrophils # Lymphocytes # (Manual) Eosinophils # (Manual) PT INR D-Dimer POC ABG pH POC ABG pCO2 POC ABG pO2 ABG pO2 ABG HCO3 ABG Base Excess ABG Hemoglobin Oxyhemoglobin Sodium Potassium Chloride Carbon Dioxide BUN Creatinine Glucose POC Glucose 134 H 135 H 135 H Calcium Phosphorus ALT Alkaline Phosphatase Total Creatine Kinase CK-MB (CK-2) Rel Index Troponin T Albumin LDL Cholesterol Direct PTH Intact Salicylates Acetaminophen Crossmatch 03/06/19 03/06/19 03/06/19 00:16 13:05 18:09 WBC RBC Hgb Hct MCH MCHC RDW Lymph % (Auto) [place] % (Auto) Eos % (Auto) Lymph # [place] # Eos # Seg Neutrophils % Seg Neuts % (Manual) Lymphocytes % (Manual) Eosinophils % (Manual) Seg Neutrophils # Lymphocytes # (Manual) Eosinophils # (Manual) PT INR D-Dimer POC ABG pH POC ABG pCO2 POC ABG pO2 ABG pO2 ABG HCO3 ABG Base Excess ABG Hemoglobin Oxyhemoglobin Sodium Potassium Chloride Carbon Dioxide BUN Creatinine Glucose POC Glucose 117 H 113 H 131 H Calcium Phosphorus ALT Alkaline Phosphatase Total Creatine Kinase CK-MB (CK-2) Rel Index Troponin T Albumin LDL Cholesterol Direct PTH Intact Salicylates Acetaminophen Crossmatch 03/07/19 03/08/19 03/08/19 05:25 05:33 16:00 WBC RBC 2.44 L Hgb 6.6 L Hct 20.8 L MCH 27 L MCHC RDW 19.2 H Lymph % (Auto) [place] % (Auto) Eos % (Auto) 8.6 H Lymph # 0.8 L [place] # Eos # 0.5 H Seg Neutrophils % 70.7 H Seg Neuts % (Manual) Lymphocytes % (Manual) Eosinophils % (Manual) Seg Neutrophils # Lymphocytes # (Manual) Eosinophils # (Manual) PT INR D-Dimer POC ABG pH POC ABG pCO2 POC ABG pO2 ABG pO2 ABG HCO3 ABG Base Excess ABG Hemoglobin Oxyhemoglobin Sodium Potassium Chloride Carbon Dioxide BUN Creatinine Glucose POC Glucose 106 H 108 H Calcium Phosphorus ALT Alkaline Phosphatase Total Creatine Kinase CK-MB (CK-2) Rel Index Troponin T Albumin LDL Cholesterol Direct PTH Intact Salicylates Acetaminophen Crossmatch 03/08/19 03/08/19 03/08/19 16:00 18:38 Unknown WBC RBC Hgb Hct MCH MCHC RDW Lymph % (Auto) [place] % (Auto) Eos % (Auto) Lymph # [place] # Eos # Seg Neutrophils % Seg Neuts % (Manual) Lymphocytes % (Manual) Eosinophils % (Manual) Seg Neutrophils # Lymphocytes # (Manual) Eosinophils # (Manual) PT INR D-Dimer POC ABG pH POC ABG pCO2 POC ABG pO2 ABG pO2 ABG HCO3 ABG Base Excess ABG Hemoglobin Oxyhemoglobin Sodium Potassium 5.4 H D Chloride Carbon Dioxide BUN 47 H Creatinine 2.6 H Glucose POC Glucose 123 H Calcium Phosphorus ALT < 5 L Alkaline Phosphatase Total Creatine Kinase CK-MB (CK-2) Rel Index Troponin T Albumin 2.2 L LDL Cholesterol Direct PTH Intact Salicylates Acetaminophen Crossmatch See Detail 03/09/19 03/09/19 03/09/19 10:48 12:28 13:53 WBC RBC 2.85 L Hgb 7.7 L Hct 24.2 L MCH 27 L MCHC RDW 18.7 H Lymph % (Auto) [place] % (Auto) Eos % (Auto) Lymph # [place] # Eos # Seg Neutrophils % Seg Neuts % (Manual) Lymphocytes % (Manual) Eosinophils % (Manual) Seg Neutrophils # Lymphocytes # (Manual) Eosinophils # (Manual) PT INR D-Dimer POC ABG pH POC ABG pCO2 POC ABG pO2 ABG pO2 ABG HCO3 30.5 H ABG Base Excess 5.6 H ABG Hemoglobin 8.1 L Oxyhemoglobin 93.8 L Sodium Potassium Chloride Carbon Dioxide BUN Creatinine Glucose POC Glucose 114 H Calcium Phosphorus ALT Alkaline Phosphatase Total Creatine Kinase CK-MB (CK-2) Rel Index Troponin T Albumin LDL Cholesterol Direct PTH Intact Salicylates Acetaminophen Crossmatch 03/09/19 03/09/19 03/10/19 17:58 23:53 12:01 WBC RBC Hgb Hct MCH MCHC RDW Lymph % (Auto) [place] % (Auto) Eos % (Auto) Lymph # [place] # Eos # Seg Neutrophils % Seg Neuts % (Manual) Lymphocytes % (Manual) Eosinophils % (Manual) Seg Neutrophils # Lymphocytes # (Manual) Eosinophils # (Manual) PT INR D-Dimer POC ABG pH POC ABG pCO2 POC ABG pO2 ABG pO2 ABG HCO3 ABG Base Excess ABG Hemoglobin Oxyhemoglobin Sodium Potassium Chloride Carbon Dioxide BUN Creatinine Glucose POC Glucose 108 H 128 H 144 H Calcium Phosphorus ALT Alkaline Phosphatase Total Creatine Kinase CK-MB (CK-2) Rel Index Troponin T Albumin LDL Cholesterol Direct PTH Intact Salicylates Acetaminophen Crossmatch 03/10/19 03/11/19 03/11/19 16:50 00:24 05:02 WBC RBC Hgb Hct MCH MCHC RDW Lymph % (Auto) [place] % (Auto) Eos % (Auto) Lymph # [place] # Eos # Seg Neutrophils % Seg Neuts % (Manual) Lymphocytes % (Manual) Eosinophils % (Manual) Seg Neutrophils # Lymphocytes # (Manual) Eosinophils # (Manual) PT INR D-Dimer POC ABG pH POC ABG pCO2 POC ABG pO2 ABG pO2 ABG HCO3 ABG Base Excess ABG Hemoglobin Oxyhemoglobin Sodium Potassium Chloride Carbon Dioxide BUN Creatinine Glucose POC Glucose 147 H 123 H 120 H Calcium Phosphorus ALT Alkaline Phosphatase Total Creatine Kinase CK-MB (CK-2) Rel Index Troponin T Albumin LDL Cholesterol Direct PTH Intact Salicylates Acetaminophen Crossmatch 03/11/19 03/11/19 03/11/19 11:56 12:20 18:37 WBC RBC Hgb Hct MCH MCHC RDW Lymph % (Auto) [place] % (Auto) Eos % (Auto) Lymph # [place] # Eos # Seg Neutrophils % Seg Neuts % (Manual) Lymphocytes % (Manual) Eosinophils % (Manual) Seg Neutrophils # Lymphocytes # (Manual) Eosinophils # (Manual) PT INR D-Dimer POC ABG pH POC ABG pCO2 POC ABG pO2 ABG pO2 ABG HCO3 ABG Base Excess ABG Hemoglobin Oxyhemoglobin Sodium Potassium 5.2 H Chloride Carbon Dioxide BUN Creatinine Glucose POC Glucose 123 H 125 H Calcium Phosphorus ALT Alkaline Phosphatase Total Creatine Kinase CK-MB (CK-2) Rel Index Troponin T Albumin LDL Cholesterol Direct PTH Intact Salicylates Acetaminophen Crossmatch 03/11/19 03/12/19 03/12/19 22:52 12:04 18:25 WBC RBC Hgb Hct MCH MCHC RDW Lymph % (Auto) [place] % (Auto) Eos % (Auto) Lymph # [place] # Eos # Seg Neutrophils % Seg Neuts % (Manual) Lymphocytes % (Manual) Eosinophils % (Manual) Seg Neutrophils # Lymphocytes # (Manual) Eosinophils # (Manual) PT INR D-Dimer POC ABG pH POC ABG pCO2 POC ABG pO2 ABG pO2 ABG HCO3 ABG Base Excess ABG Hemoglobin Oxyhemoglobin Sodium Potassium Chloride Carbon Dioxide BUN Creatinine Glucose POC Glucose 110 H 106 H 118 H Calcium Phosphorus ALT Alkaline Phosphatase Total Creatine Kinase CK-MB (CK-2) Rel Index Troponin T Albumin LDL Cholesterol Direct PTH Intact Salicylates Acetaminophen Crossmatch 03/12/19 03/13/19 03/13/19 23:36 04:38 04:38 WBC RBC 2.95 L Hgb 7.9 L Hct 24.9 L MCH 27 L MCHC RDW 19.9 H Lymph % (Auto) 11.1 L [place] % (Auto) 8.1 H Eos % (Auto) 4.4 H Lymph # 0.9 L [place] # Eos # Seg Neutrophils % 75.4 H Seg Neuts % (Manual) Lymphocytes % (Manual) Eosinophils % (Manual) Seg Neutrophils # Lymphocytes # (Manual) Eosinophils # (Manual) PT INR D-Dimer POC ABG pH POC ABG pCO2 POC ABG pO2 ABG pO2 ABG HCO3 ABG Base Excess ABG Hemoglobin Oxyhemoglobin Sodium 136 L Potassium 5.1 H Chloride 93.8 L Carbon Dioxide BUN 48 H Creatinine 2.7 H Glucose 102 H POC Glucose 115 H Calcium Phosphorus ALT < 5 L Alkaline Phosphatase 143 H Total Creatine Kinase CK-MB (CK-2) Rel Index Troponin T Albumin 2.5 L LDL Cholesterol Direct PTH Intact Salicylates Acetaminophen Crossmatch 03/13/19 03/13/19 03/13/19 05:33 13:37 18:03 WBC RBC Hgb Hct MCH MCHC RDW Lymph % (Auto) [place] % (Auto) Eos % (Auto) Lymph # [place] # Eos # Seg Neutrophils % Seg Neuts % (Manual) Lymphocytes % (Manual) Eosinophils % (Manual) Seg Neutrophils # Lymphocytes # (Manual) Eosinophils # (Manual) PT INR D-Dimer POC ABG pH POC ABG pCO2 POC ABG pO2 ABG pO2 ABG HCO3 ABG Base Excess ABG Hemoglobin Oxyhemoglobin Sodium Potassium Chloride Carbon Dioxide BUN Creatinine Glucose POC Glucose 140 H 150 H 158 H Calcium Phosphorus ALT Alkaline Phosphatase Total Creatine Kinase CK-MB (CK-2) Rel Index Troponin T Albumin LDL Cholesterol Direct PTH Intact Salicylates Acetaminophen Crossmatch 03/13/19 03/14/19 03/14/19 23:32 05:24 12:20 WBC RBC Hgb Hct MCH MCHC RDW Lymph % (Auto) [place] % (Auto) Eos % (Auto) Lymph # [place] # Eos # Seg Neutrophils % Seg Neuts % (Manual) Lymphocytes % (Manual) Eosinophils % (Manual) Seg Neutrophils # Lymphocytes # (Manual) Eosinophils # (Manual) PT INR D-Dimer POC ABG pH POC ABG pCO2 POC ABG pO2 ABG pO2 ABG HCO3 ABG Base Excess ABG Hemoglobin Oxyhemoglobin Sodium Potassium Chloride Carbon Dioxide BUN Creatinine Glucose POC Glucose 162 H 146 H 127 H Calcium Phosphorus ALT Alkaline Phosphatase Total Creatine Kinase CK-MB (CK-2) Rel Index Troponin T Albumin LDL Cholesterol Direct PTH Intact Salicylates Acetaminophen Crossmatch 03/14/19 03/14/19 03/15/19 18:05 23:57 04:38 WBC 12.8 H RBC 3.11 L Hgb 8.1 L Hct 26.5 L MCH 26 L MCHC 31 L RDW 19.7 H Lymph % (Auto) 4.4 L [place] % (Auto) 7.4 H Eos % (Auto) Lymph # 0.6 L [place] # 0.9 H Eos # Seg Neutrophils % 87.3 H Seg Neuts % (Manual) Lymphocytes % (Manual) Eosinophils % (Manual) Seg Neutrophils # 11.2 H Lymphocytes # (Manual) Eosinophils # (Manual) PT INR D-Dimer POC ABG pH POC ABG pCO2 POC ABG pO2 ABG pO2 ABG HCO3 ABG Base Excess ABG Hemoglobin Oxyhemoglobin Sodium Potassium Chloride Carbon Dioxide BUN Creatinine Glucose POC Glucose 142 H 155 H Calcium Phosphorus ALT Alkaline Phosphatase Total Creatine Kinase CK-MB (CK-2) Rel Index Troponin T Albumin LDL Cholesterol Direct PTH Intact Salicylates Acetaminophen Crossmatch 03/15/19 03/15/19 03/15/19 04:38 05:31 11:32 WBC RBC Hgb Hct MCH MCHC RDW Lymph % (Auto) [place] % (Auto) Eos % (Auto) Lymph # [place] # Eos # Seg Neutrophils % Seg Neuts % (Manual) Lymphocytes % (Manual) Eosinophils % (Manual) Seg Neutrophils # Lymphocytes # (Manual) Eosinophils # (Manual) PT INR D-Dimer POC ABG pH POC ABG pCO2 POC ABG pO2 ABG pO2 ABG HCO3 ABG Base Excess ABG Hemoglobin Oxyhemoglobin Sodium 135 L Potassium Chloride 91.9 L Carbon Dioxide BUN 54 H Creatinine 2.8 H Glucose 128 H POC Glucose 160 H 109 H Calcium 11.1 H Phosphorus ALT Alkaline Phosphatase 161 H Total Creatine Kinase CK-MB (CK-2) Rel Index Troponin T Albumin 2.3 L LDL Cholesterol Direct PTH Intact Salicylates Acetaminophen Crossmatch 03/15/19 03/15/19 03/16/19 18:15 23:41 05:40 WBC RBC Hgb Hct MCH MCHC RDW Lymph % (Auto) [place] % (Auto) Eos % (Auto) Lymph # [place] # Eos # Seg Neutrophils % Seg Neuts % (Manual) Lymphocytes % (Manual) Eosinophils % (Manual) Seg Neutrophils # Lymphocytes # (Manual) Eosinophils # (Manual) PT INR D-Dimer POC ABG pH POC ABG pCO2 POC ABG pO2 ABG pO2 ABG HCO3 ABG Base Excess ABG Hemoglobin Oxyhemoglobin Sodium Potassium Chloride Carbon Dioxide BUN Creatinine Glucose POC Glucose 151 H 110 H 163 H Calcium Phosphorus ALT Alkaline Phosphatase Total Creatine Kinase CK-MB (CK-2) Rel Index Troponin T Albumin LDL Cholesterol Direct PTH Intact Salicylates Acetaminophen Crossmatch 03/16/19 03/16/19 03/16/19 11:55 17:04 23:58 WBC RBC Hgb Hct MCH MCHC RDW Lymph % (Auto) [place] % (Auto) Eos % (Auto) Lymph # [place] # Eos # Seg Neutrophils % Seg Neuts % (Manual) Lymphocytes % (Manual) Eosinophils % (Manual) Seg Neutrophils # Lymphocytes # (Manual) Eosinophils # (Manual) PT INR D-Dimer POC ABG pH POC ABG pCO2 POC ABG pO2 ABG pO2 ABG HCO3 ABG Base Excess ABG Hemoglobin Oxyhemoglobin Sodium Potassium Chloride Carbon Dioxide BUN Creatinine Glucose POC Glucose 114 H 147 H 192 H Calcium Phosphorus ALT Alkaline Phosphatase Total Creatine Kinase CK-MB (CK-2) Rel Index Troponin T Albumin LDL Cholesterol Direct PTH Intact Salicylates Acetaminophen Crossmatch 03/17/19 03/17/19 03/17/19 05:53 11:17 17:01 WBC RBC Hgb Hct MCH MCHC RDW Lymph % (Auto) [place] % (Auto) Eos % (Auto) Lymph # [place] # Eos # Seg Neutrophils % Seg Neuts % (Manual) Lymphocytes % (Manual) Eosinophils % (Manual) Seg Neutrophils # Lymphocytes # (Manual) Eosinophils # (Manual) PT INR D-Dimer POC ABG pH POC ABG pCO2 POC ABG pO2 ABG pO2 ABG HCO3 ABG Base Excess ABG Hemoglobin Oxyhemoglobin Sodium Potassium Chloride Carbon Dioxide BUN Creatinine Glucose POC Glucose 151 H 161 H 152 H Calcium Phosphorus ALT Alkaline Phosphatase Total Creatine Kinase CK-MB (CK-2) Rel Index Troponin T Albumin LDL Cholesterol Direct PTH Intact Salicylates Acetaminophen Crossmatch 03/17/19 03/18/19 03/18/19 21:47 04:15 04:44 WBC RBC Hgb Hct MCH MCHC RDW Lymph % (Auto) [place] % (Auto) Eos % (Auto) Lymph # [place] # Eos # Seg Neutrophils % Seg Neuts % (Manual) Lymphocytes % (Manual) Eosinophils % (Manual) Seg Neutrophils # Lymphocytes # (Manual) Eosinophils # (Manual) PT INR D-Dimer POC ABG pH POC ABG pCO2 POC ABG pO2 ABG pO2 102.8 H ABG HCO3 28.3 H ABG Base Excess ABG Hemoglobin 10.4 L Oxyhemoglobin 94.5 L Sodium Potassium Chloride Carbon Dioxide BUN Creatinine Glucose POC Glucose 170 H 150 H Calcium Phosphorus ALT Alkaline Phosphatase Total Creatine Kinase CK-MB (CK-2) Rel Index Troponin T Albumin LDL Cholesterol Direct PTH Intact Salicylates Acetaminophen Crossmatch 03/18/19 03/18/19 03/18/19 06:38 12:12 17:47 WBC RBC Hgb Hct MCH MCHC RDW Lymph % (Auto) [place] % (Auto) Eos % (Auto) Lymph # [place] # Eos # Seg Neutrophils % Seg Neuts % (Manual) Lymphocytes % (Manual) Eosinophils % (Manual) Seg Neutrophils # Lymphocytes # (Manual) Eosinophils # (Manual) PT INR D-Dimer POC ABG pH 7.510 H POC ABG pCO2 POC ABG pO2 164 H ABG pO2 ABG HCO3 ABG Base Excess ABG Hemoglobin Oxyhemoglobin Sodium Potassium Chloride Carbon Dioxide BUN Creatinine Glucose POC Glucose 145 H 149 H Calcium Phosphorus ALT Alkaline Phosphatase Total Creatine Kinase CK-MB (CK-2) Rel Index Troponin T Albumin LDL Cholesterol Direct PTH Intact Salicylates Acetaminophen Crossmatch 03/18/19 03/19/19 03/19/19 23:25 01:11 04:23 WBC 15.6 H RBC 2.51 L Hgb 6.5 L Hct 21.6 L MCH 26 L MCHC 30 L RDW 19.8 H Lymph % (Auto) 6.0 L [place] % (Auto) Eos % (Auto) Lymph # 0.9 L [place] # 1.0 H Eos # Seg Neutrophils % 85.5 H Seg Neuts % (Manual) Lymphocytes % (Manual) Eosinophils % (Manual) Seg Neutrophils # 13.4 H Lymphocytes # (Manual) Eosinophils # (Manual) PT INR D-Dimer POC ABG pH POC ABG pCO2 POC ABG pO2 ABG pO2 78.3 L ABG HCO3 30.7 H ABG Base Excess 5.8 H ABG Hemoglobin 5.8 L Oxyhemoglobin 94.6 L Sodium Potassium Chloride Carbon Dioxide BUN Creatinine Glucose POC Glucose 190 H Calcium Phosphorus ALT Alkaline Phosphatase Total Creatine Kinase CK-MB (CK-2) Rel Index Troponin T Albumin LDL Cholesterol Direct PTH Intact Salicylates Acetaminophen Crossmatch 03/19/19 03/19/19 03/19/19 05:22 05:35 08:54 WBC RBC Hgb Hct MCH MCHC RDW Lymph % (Auto) [place] % (Auto) Eos % (Auto) Lymph # [place] # Eos # Seg Neutrophils % Seg Neuts % (Manual) Lymphocytes % (Manual) Eosinophils % (Manual) Seg Neutrophils # Lymphocytes # (Manual) Eosinophils # (Manual) PT INR D-Dimer POC ABG pH POC ABG pCO2 POC ABG pO2 ABG pO2 ABG HCO3 ABG Base Excess ABG Hemoglobin Oxyhemoglobin Sodium Potassium Chloride Carbon Dioxide BUN Creatinine Glucose POC Glucose 167 H Calcium Phosphorus ALT Alkaline Phosphatase Total Creatine Kinase CK-MB (CK-2) Rel Index Troponin T Albumin LDL Cholesterol Direct PTH Intact Salicylates Acetaminophen Crossmatch See Detail See Detail 03/19/19 03/19/19 03/19/19 12:36 17:02 23:25 WBC RBC Hgb Hct MCH MCHC RDW Lymph % (Auto) [place] % (Auto) Eos % (Auto) Lymph # [place] # Eos # Seg Neutrophils % Seg Neuts % (Manual) Lymphocytes % (Manual) Eosinophils % (Manual) Seg Neutrophils # Lymphocytes # (Manual) Eosinophils # (Manual) PT INR D-Dimer POC ABG pH POC ABG pCO2 POC ABG pO2 ABG pO2 ABG HCO3 ABG Base Excess ABG Hemoglobin Oxyhemoglobin Sodium Potassium Chloride Carbon Dioxide BUN Creatinine Glucose POC Glucose 167 H 135 H 136 H Calcium Phosphorus ALT Alkaline Phosphatase Total Creatine Kinase CK-MB (CK-2) Rel Index Troponin T Albumin LDL Cholesterol Direct PTH Intact Salicylates Acetaminophen Crossmatch 03/20/19 03/20/19 03/20/19 05:38 08:40 08:40 WBC RBC 2.61 L Hgb 7.1 L Hct 22.0 L MCH 27 L MCHC RDW 19.6 H Lymph % (Auto) 8.2 L [place] % (Auto) 8.3 H Eos % (Auto) 5.7 H Lymph # 0.8 L [place] # Eos # 0.5 H Seg Neutrophils % 77.3 H Seg Neuts % (Manual) Lymphocytes % (Manual) Eosinophils % (Manual) Seg Neutrophils # Lymphocytes # (Manual) Eosinophils # (Manual) PT INR D-Dimer POC ABG pH POC ABG pCO2 POC ABG pO2 ABG pO2 ABG HCO3 ABG Base Excess ABG Hemoglobin Oxyhemoglobin Sodium Potassium Chloride 95.9 L Carbon Dioxide BUN 69 H Creatinine 2.8 H Glucose 115 H POC Glucose 134 H Calcium 10.5 H Phosphorus ALT Alkaline Phosphatase Total Creatine Kinase CK-MB (CK-2) Rel Index Troponin T Albumin LDL Cholesterol Direct PTH Intact Salicylates Acetaminophen Crossmatch 03/20/19 03/20/19 03/20/19 12:13 18:04 23:49 WBC RBC Hgb Hct MCH MCHC RDW Lymph % (Auto) [place] % (Auto) Eos % (Auto) Lymph # [place] # Eos # Seg Neutrophils % Seg Neuts % (Manual) Lymphocytes % (Manual) Eosinophils % (Manual) Seg Neutrophils # Lymphocytes # (Manual) Eosinophils # (Manual) PT INR D-Dimer POC ABG pH POC ABG pCO2 POC ABG pO2 ABG pO2 ABG HCO3 ABG Base Excess ABG Hemoglobin Oxyhemoglobin Sodium Potassium Chloride Carbon Dioxide BUN Creatinine Glucose POC Glucose 144 H 165 H 172 H Calcium Phosphorus ALT Alkaline Phosphatase Total Creatine Kinase CK-MB (CK-2) Rel Index Troponin T Albumin LDL Cholesterol Direct PTH Intact Salicylates Acetaminophen Crossmatch 03/21/19 03/21/19 03/21/19 05:00 06:29 06:30 WBC RBC 2.72 L Hgb 7.4 L Hct 22.9 L MCH 27 L MCHC RDW 19.4 H Lymph % (Auto) [place] % (Auto) Eos % (Auto) Lymph # [place] # Eos # Seg Neutrophils % Seg Neuts % (Manual) 81.0 H Lymphocytes % (Manual) 8.0 L Eosinophils % (Manual) 8.0 H Seg Neutrophils # Lymphocytes # (Manual) 0.7 L Eosinophils # (Manual) 0.7 H PT INR D-Dimer POC ABG pH POC ABG pCO2 POC ABG pO2 ABG pO2 ABG HCO3 ABG Base Excess ABG Hemoglobin Oxyhemoglobin Sodium Potassium Chloride Carbon Dioxide 33 H BUN 43 H Creatinine 1.7 H Glucose 145 H POC Glucose 156 H Calcium Phosphorus ALT Alkaline Phosphatase 212 H Total Creatine Kinase CK-MB (CK-2) Rel Index Troponin T Albumin 2.2 L LDL Cholesterol Direct PTH Intact Salicylates Acetaminophen Crossmatch 03/21/19 12:02 WBC RBC Hgb Hct MCH MCHC RDW Lymph % (Auto) [place] % (Auto) Eos % (Auto) Lymph # [place] # Eos # Seg Neutrophils % Seg Neuts % (Manual) Lymphocytes % (Manual) Eosinophils % (Manual) Seg Neutrophils # Lymphocytes # (Manual) Eosinophils # (Manual) PT INR D-Dimer POC ABG pH POC ABG pCO2 POC ABG pO2 ABG pO2 ABG HCO3 ABG Base Excess ABG Hemoglobin Oxyhemoglobin Sodium Potassium Chloride Carbon Dioxide BUN Creatinine Glucose POC Glucose 163 H Calcium Phosphorus ALT Alkaline Phosphatase Total Creatine Kinase CK-MB (CK-2) Rel Index Troponin T Albumin LDL Cholesterol Direct PTH Intact Salicylates Acetaminophen Crossmatch
--- NOTE | 2019-03-21 17:57 | Progress Note ---
Assessment and Plan - Patient Problems (1) ESRD (end stage renal disease) on dialysis Current Visit: Yes Status: Chronic Plan to address problem: End stage renal disease : - access: Left arm AVG Continue hemodialysis Saturday (2) Diabetes mellitus, insulin dependent (IDDM), uncontrolled Current Visit: No Status: Acute Plan to address problem: DM type II uncontrolled Monitor Fingersticks (3) Anemia in chronic kidney disease, on chronic dialysis Current Visit: Yes Status: Acute Plan to address problem: Anemia of chronic kidney disease hemoglobin 8.2 -6.5--7.1 g/dl We'll give Epogen Received PrBc transfusion Monitor CBC (4) Hypertension Current Visit: Yes Status: Acute Plan to address problem: Hypertension controlled Ensure medications Monitor blood pressure (5) Acute hypoxemic respiratory failure Current Visit: Yes Status: Acute Plan to address problem: Patient remains on trach collar Chest x-ray reviewed with patchy opacities upper lung lynn Cultures obtained with Acinetobacter Ultrafiltration limited by hypotension Subjective Principal diagnosis: respiratory failure Interval history: 63-year-old gentleman with medical history significant for end-stage renal disease on hemodialysis via a left arm AV graft is currently in the [facility] for plan for dialysis today Patient is poorly responsive review of systems unobtainable tracheal stain with gram positive rods. now with trache on trach collar No fever though this time Objective - Vital Signs Vital signs: Vital Signs - 12hr 03/21/19 03/21/19 03/21/19 06:00 06:15 06:30 Temperature Pulse Rate 102 H 111 H 103 H Pulse Rate [ From Monitor] Respiratory 28 H 28 H 25 H Rate Blood Pressure 123/69 122/65 128/65 O2 Sat by Pulse 91 94 94 Oximetry O2 Sat by Pulse Oximetry [ Assessment] 03/21/19 03/21/19 03/21/19 06:45 07:00 07:15 Temperature Pulse Rate 119 H 105 H 102 H Pulse Rate [ From Monitor] Respiratory 27 H 29 H 32 H Rate Blood Pressure 118/64 131/65 127/65 O2 Sat by Pulse 95 95 94 Oximetry O2 Sat by Pulse Oximetry [ Assessment] 03/21/19 03/21/19 03/21/19 07:30 07:45 08:00 Temperature 98.9 F Pulse Rate 116 H 109 H 100 H Pulse Rate [ 100 H From Monitor] Respiratory 30 H 22 28 H Rate Blood Pressure 124/62 124/62 126/62 O2 Sat by Pulse 95 99 96 Oximetry O2 Sat by Pulse Oximetry [ Assessment] 03/21/19 03/21/19 03/21/19 08:08 08:15 08:30 Temperature Pulse Rate 110 H 98 H 108 H Pulse Rate [ From Monitor] Respiratory 26 H 21 Rate Blood Pressure 117/62 119/61 O2 Sat by Pulse 99 99 Oximetry O2 Sat by Pulse Oximetry [ Assessment] 03/21/19 03/21/19 03/21/19 08:45 09:01 09:15 Temperature Pulse Rate 100 H 109 H 100 H Pulse Rate [ From Monitor] Respiratory 28 H 32 H 34 H Rate Blood Pressure 126/62 137/71 115/61 O2 Sat by Pulse 96 97 94 Oximetry O2 Sat by Pulse Oximetry [ Assessment] 03/21/19 03/21/19 03/21/19 09:30 09:45 10:00 Temperature Pulse Rate 106 H 114 H 101 H Pulse Rate [ From Monitor] Respiratory 26 H 24 25 H Rate Blood Pressure 112/58 116/62 121/58 O2 Sat by Pulse 98 99 98 Oximetry O2 Sat by Pulse Oximetry [ Assessment] 03/21/19 03/21/19 03/21/19 10:15 10:30 10:45 Temperature Pulse Rate 103 H 111 H 103 H Pulse Rate [ From Monitor] Respiratory 26 H 26 H 26 H Rate Blood Pressure 115/60 119/63 116/61 O2 Sat by Pulse 98 98 98 Oximetry O2 Sat by Pulse Oximetry [ Assessment] 03/21/19 03/21/19 03/21/19 11:00 11:15 11:30 Temperature Pulse Rate 106 H 108 H 99 H Pulse Rate [ From Monitor] Respiratory 25 H 27 H 27 H Rate Blood Pressure 111/64 111/64 129/64 O2 Sat by Pulse 99 98 99 Oximetry O2 Sat by Pulse Oximetry [ Assessment] 03/21/19 03/21/19 03/21/19 11:45 12:00 12:15 Temperature 97.0 F L Pulse Rate 102 H 110 H 112 H Pulse Rate [ 110 H From Monitor] Respiratory 26 H 29 H 32 H Rate Blood Pressure 129/64 127/63 127/63 O2 Sat by Pulse 98 97 98 Oximetry O2 Sat by Pulse Oximetry [ Assessment] 03/21/19 03/21/19 03/21/19 12:30 12:45 13:00 Temperature Pulse Rate 105 H 113 H 99 H Pulse Rate [ From Monitor] Respiratory 27 H 26 H 24 Rate Blood Pressure 128/67 133/65 117/61 O2 Sat by Pulse 98 99 100 Oximetry O2 Sat by Pulse Oximetry [ Assessment] 03/21/19 03/21/19 03/21/19 13:15 13:30 13:45 Temperature Pulse Rate 103 H 98 H 100 H Pulse Rate [ From Monitor] Respiratory 25 H 26 H 26 H Rate Blood Pressure 125/60 120/62 123/62 O2 Sat by Pulse 100 100 100 Oximetry O2 Sat by Pulse Oximetry [ Assessment] 03/21/19 03/21/19 03/21/19 14:00 14:15 14:30 Temperature Pulse Rate 107 H 100 H 113 H Pulse Rate [ From Monitor] Respiratory 23 28 H 28 H Rate Blood Pressure 120/64 129/63 129/63 O2 Sat by Pulse 100 99 100 Oximetry O2 Sat by Pulse Oximetry [ Assessment] 03/21/19 03/21/19 03/21/19 14:45 15:00 15:15 Temperature Pulse Rate 103 H 99 H 109 H Pulse Rate [ From Monitor] Respiratory 27 H 23 24 Rate Blood Pressure 115/63 114/64 117/65 O2 Sat by Pulse 100 100 100 Oximetry O2 Sat by Pulse Oximetry [ Assessment] 03/21/19 03/21/19 03/21/19 15:30 15:39 15:45 Temperature Pulse Rate 97 H 110 H Pulse Rate [ From Monitor] Respiratory 23 30 H Rate Blood Pressure 115/65 115/65 O2 Sat by Pulse 100 98 Oximetry O2 Sat by Pulse 100 Oximetry [ Assessment] 03/21/19 03/21/19 03/21/19 16:00 16:01 16:09 Temperature 98.8 F Pulse Rate 100 H 106 H 94 H Pulse Rate [ 106 H From Monitor] Respiratory 30 H 30 H Rate Blood Pressure 131/67 111/66 O2 Sat by Pulse 97 97 96 Oximetry O2 Sat by Pulse Oximetry [ Assessment] 03/21/19 03/21/19 03/21/19 16:15 16:30 16:45 Temperature Pulse Rate 109 H 105 H 98 H Pulse Rate [ From Monitor] Respiratory 27 H 28 H 23 Rate Blood Pressure 128/71 129/68 121/61 O2 Sat by Pulse 99 97 100 Oximetry O2 Sat by Pulse Oximetry [ Assessment] 03/21/19 03/21/19 03/21/19 17:00 17:15 17:30 Temperature Pulse Rate 103 H 107 H 111 H Pulse Rate [ From Monitor] Respiratory 25 H 24 27 H Rate Blood Pressure 118/66 123/67 133/70 O2 Sat by Pulse 100 100 98 Oximetry O2 Sat by Pulse Oximetry [ Assessment] - General Appearance General appearance: well-developed, well-nourished EENT: ATNC, PERRL, mucous membranes moist Neck: no JVD Respiratory: Present: Clear to Ascultation Cardiology: regular, S1S2 Gastrointestinal: normal, normoactive bowel sounds Neurologic: no focal deficit, alert and oriented x3 Psychiatric: mood/affect appropriate - Lab 03/21/19 06:30 03/21/19 05:00 Most recent lab results ABG pH 7.424 pH Units (7.350-7.450) 03/19/19 04:23 ABG pCO2 48.0 mm Hg 03/19/19 04:23 ABG pO2 78.3 mm Hg (80.0-90.0) L 03/19/19 04:23 ABG HCO3 30.7 mmol/L (20.0-26.0) H 03/19/19 04:23 ABG O2 Saturation 97.0 % (95.0-99.0) 03/19/19 04:23 Calcium 10.0 mg/dL (8.4-10.2) 03/21/19 05:00 Phosphorus 3.10 mg/dL (2.5-4.5) 03/15/19 04:38 Magnesium 2.00 mg/dL (1.7-2.3) 03/21/19 05:00 - Imaging Chest x-ray: image reviewed Medications & Allergies - Medications Allergies/Adverse Reactions: Allergies haloperidol [From Haldol] Adverse Reaction (Verified 03/13/18 12:10) Unknown haloperidol lactate [From Haldol] Adverse Reaction (Verified 03/13/18 12:10) Unknown Home Medications: Home Medications Medication Instructions Recorded Confirmed Last Taken Type risperiDONE [RisperDAL] 1 mg PO QAM 03/13/18 02/21/19 Unknown History Sertraline [Zoloft] 100 mg PO QDAY 08/26/18 02/21/19 Unknown History Polyethylene Glycol 3350 [Miralax 17 gm PO QDAY #30 packet 11/05/18 02/21/19 Unknown Rx 3350] Aspirin EC [Halfprin EC] 81 mg PO DAILY #30 11/19/18 02/21/19 Unknown Rx Docusate Sodium [Colace CAP] 100 mg PO BID #60 11/19/18 02/21/19 Unknown Rx Folic Acid [Folvite] 1 mg PO DAILY #30 tab 11/19/18 02/21/19 Unknown Rx Famotidine [Pepcid] 20 mg PO DAILY tablet 12/08/18 02/21/19 Unknown Rx Gabapentin [Neurontin] 100 mg PO QHS capsule 12/08/18 02/21/19 Unknown Rx Metoprolol [Lopressor TAB] 50 mg PO BID 30 Days tablet 12/08/18 02/21/19 Unknown Rx Sevelamer Carbonate [Renvela] 800 mg PO TIDWM tablet 12/08/18 02/21/19 Unknown Rx hydrALAZINE [Apresoline TAB] 100 mg PO Q8HR #120 tablet 12/08/18 02/21/19 Unknown Rx Acetaminophen [Acetaminophen TAB] 650 mg PO Q12H PRN 12/15/18 02/21/19 Unknown History Glucagon,Human Recombinant 1 mg IJ Q15MIN PRN 12/15/18 02/21/19 Unknown History [Glucagon Emergency Kit] Insulin Aspart [NovoLOG 100 See Protocol SQ QWEEK 12/15/18 02/21/19 Unknown History UNITS/ML VIAL] Active Medications: Generic Name Dose Route Start Last Admin Trade Name Freq PRN Reason Stop Dose Admin Acetaminophen 650 mg 02/21/19 22:19 03/18/19 04:53 Tylenol PO 650 mg Q4H PRN Administration Pain MILD(1-3)/Fever >100.5/HILL Albuterol/Ipratropium 1 ampul 02/24/19 20:00 03/21/19 15:38 Duoneb *Not For Prn Use* IH 1 ampul TIDRT SANCHEZ Administration Lipase/Protease/Amylase 1 each 03/05/19 14:04 Pancrejewel Barrientos 10,500 Unit FEEDTUBE PRN PRN For Clogged Feeding Tube Dextrose 50 ml 02/21/19 22:22 03/03/19 17:37 D50w (25gm) Syringe IV 50 ml PRN PRN Administration Hypoglycemia Epoetin Solitario 10,000 unit 03/18/19 16:13 03/20/19 18:00 Procrit SUB-Q 10,000 unit UMA PRN Administration anemia Famotidine 20 mg 02/23/19 10:00 03/21/19 09:40 Pepcid PO 20 mg DAILY SANCHEZ Administration Heparin Sodium (Porcine) 5,000 unit 03/04/19 22:00 03/21/19 09:39 Heparin SUB-Q 5,000 unit Q12HR SANCHEZ Administration Hydrophilic Ointment 1 applic 02/21/19 18:24 03/05/19 08:16 Vaseline Lip Therapy TP 1 applic Q2HR PRN Administration Dry Lips Sodium Chloride 100 mls @ 999 mls/hr 02/26/19 09:00 Nacl 0.9% IV UMA PRN Hypotension Norepinephrine 8 mg/ Sodium 250 mls @ 3.75 mls/hr 03/18/19 13:00 03/19/19 09:17 Chloride IV 0 mcg/min TITR SANCHEZ 0 mls/hr Titration Protocol 2 MCG/MIN Insulin Human Regular 0 units 02/26/19 12:00 03/21/19 12:29 Humulin R SUB-Q 1 units Q6HR SANCHEZ Administration Protocol Metoprolol Tartrate 2.5 mg 02/28/19 12:06 03/15/19 05:15 Lopressor IV 2.5 mg Q4HR PRN Administration Tachycardia Multi-Ingred Cream/Lotion/Oil/Oint 1 applic 02/21/19 18:24 Artificial Tears Ophth Oint OU Q4HR PRN Dry Eye(s) Ondansetron HCl 4 mg 02/21/19 22:19 03/12/19 21:39 Zofran IV 4 mg Q8H PRN Administration Nausea And Vomiting Risperidone 1 mg 02/25/19 13:00 03/21/19 09:39 Risperdal PO 1 mg DAILY SANCHEZ Administration Scopolamine 1 each 03/13/19 04:00 03/19/19 04:18 Transderm-Scop TD 1 each Q3D SANCHEZ Administration Sertraline HCl 100 mg 02/25/19 13:00 03/21/19 09:39 Zoloft PO 100 mg DAILY SANCHEZ Administration Simple Syrup 15 ml 03/05/19 14:04 Simple Syrup FEEDTUBE PRN PRN Hypoglycemia Simple Syrup 30 ml 08/15/19 14:04 Simple Syrup FEEDTUBE PRN PRN Hypoglycemia Sodium Bicarbonate 325 mg 03/05/19 14:04 Sodium Bicarbonate FEEDTUBE PRN PRN For Clogged Feeding Tube Sodium Chloride 10 ml 02/22/19 10:00 03/21/19 09:43 Sodium Chloride Flush Syringe 10 Ml IV 10 ml BID SANCHEZ Administration Sodium Chloride 10 ml 02/21/19 22:19 02/24/19 22:00 Sodium Chloride Flush Syringe 10 Ml IV 10 ml PRN PRN Administration LINE FLUSH Tramadol HCl 50 mg 03/05/19 10:08 03/18/19 04:38 Ultram PO 50 mg Q6H PRN Administration Pain, Moderate (4-6) Trimethoprim/Sulfamethoxazole 160 mg 03/19/19 15:00 03/21/19 09:41 Bactrim 200-40 Mg/5 Ml PO 160 mg Q24HR SANCHEZ Administration
[2019-03-22] MEDS: INSULIN REGULAR, HUMAN 100 UNITS/1 ML SUB-Q SCH ×4 (00:31→17:33)
--- NOTE | 2019-03-22 03:13 | XRay Report ---
CHEST 1 VIEW 03/22/2019 2:23 AM INDICATION / CLINICAL INFORMATION: follow up respiratory failure. COMPARISON: Chest x-ray 03/21/2019 FINDINGS: SUPPORT DEVICES: Tracheostomy tube and left internal jugular catheter again project in expected posit ion HEART / MEDIASTINUM: Moderate cardiomegaly and leadless cardiac pacemaker, unchanged LUNGS / PLEURA: Bilateral airspace parenchymal disease has minimally improved characteristic for reso lving pneumonia. Small bilateral pleural effusions No pneumothorax. ADDITIONAL FINDINGS: No significant additional findings. IMPRESSION: 1. Resolving bilateral pneumonia Signer Name: Carlos Hanley MD Signed: 03/22/2019 3:09 AM Workstation Name: [id number]
[2019-03-22] MEDS: SCOPOLAMINE TRANSDERMAL PATCH 72 HR TD SCH (03:56)
[2019-03-22 06:25] LABS: Hematocrit 21.8 % (35.5-45.6); Hemoglobin 7.1 gm/dl (11.8-15.2); Mean Corpuscular HGB Conc 32 % (32-34); Mean Corpuscular Volume 84 fl (84-94); Platelet Count 344 K/mm3 (140-440); Red Blood Count 2.58 M/mm3 (3.65-5.03); Red Cell Distribution Width 19.2 % (13.2-15.2)
[2019-03-22 06:39] LABS: Calcium 10.3 mg/dL (8.4-10.2)
[2019-03-22] MEDS: IPRATROPIUM/ALBUTEROL SULFATE 3 ML AMPUL.NEB IH SCH ×3 (08:04→19:33)
--- NOTE | 2019-03-22 08:15 | Progress Note ---
Assessment and Plan Assessment and plan: 63-year-old -Al[place]ian male patient from [facility] with multiple co- morbidities including blindness, CVA, CHF, PPM/ICD, loop recorder since 2012 that is MRI compatible, IDDM type 2, sepsis left foot ulcer, afib, ESRD with complications on HD TTS, hypertension, AOCD and GERD who presented to the ED with hypotensive after intubation in the emergency room. diagnosed with fluid overload, pleural effusion. Patient has had recurrent admission in the hospital for similar reason and was recently discharged from the hospital following treatment of Severe Sepsis due to Necrotizing Unstagable sacral decubitus ulcer with ostemomylitis, has received multiple courses of broad spectrum abx. Acute hypoxic respiratory failure, status post intubation and ventilatory support Acute respiratory failure on mechanical ventilator >96 hrs Extubated ; history of tracheostomy on T piece Current management , nebulizers, Currently on trach/peg placed on 03/03off vent since 03/09, cont oxygen supplement, improving, on t piece, nebulizers, extubated, pulmonary critical following acute on chronc systolic CHF/ Acute pulmonary edema, HD per schedule Dilated CMP, EF 35-40% Continue diuresis, supportive care Acute metabolic encephalopathy, resolved, has baseline Dementia. --ESRD on hemodialysis per schedule nephrology following --Bilateral pleural effusions improved with HD --Permanent atrial fibrillation and flutter and hypercoaguable state Not on anticoagulation because of anemia thrombocytopenia rate control meds optimizeds --Diabetes mellitus type 2 Accu-Chek sliding scale coverage Insulin as needed --NSTEMI type 2 , Cardiology following --Schizophrenia:stable --Legally blind, supportive care --hypertension, Monitor BP,'s adjust medications as needed --Hypokalemia; corrected --Pulmonary hypertension; continue current management --Dysphagia s/p PEG tube; PEG tubes per protocol --Sacral decub ulcer; Wound care --Severe malnutrition /hypoalbuminemia with FTT: 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, 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 inpatient hospice was recommended, but family is not agreeable at this time. family meeting and ethic consult has needed The high probability of a clinically significant, sudden or life threatening deterioration of the [pulmonary, neuro, renal] system(s) required my full and direct attention, intervention and personal management. The aggregate critical c are time was [31] minutes. This time is in addition to time spent performing reported procedures but includes the following: [x] Data Review and interpretation [x] Patient assessment and monitoring of vital signs [] Documentation [x] Medication orders and management History Interval history: Was on vent, now off vent On T - piece Hospitalist Physical - Physical exam Narrative exam: Gen: Not in acute distress, lying in bed, on T-PIECE HEENT: Normocephalic, atraumatic Neck: supple, no JVD, TRACHEOSTOMY Heart: S1 and S2 irreg, no murmurs, rubs or gallop Lungs: DEcreased breath sounds, bilat, no crackles, Abd: soft, non tender, non distended, normal BS, PEG tube Ext: No edema, no clubbing, no cyanosis, Neuro: Says few words, moves all ext Sacral wound - Constitutional Vitals: Temp Pulse Resp BP Pulse Ox 98.6 F 92 H 29 H 119/69 95 03/22/19 07:31 03/22/19 08:10 03/22/19 08:01 03/22/19 08:01 03/22/19 08:11 General appearance: Present: no acute distress, well-nourished, other (trac heostomy on T piece) Results - Labs CBC & Chem 7: 03/22/19 05:23 03/22/19 05:23 Labs: Laboratory Last Values WBC 10.4 K/mm3 (4.5-11.0) 03/22/19 05:23 RBC 2.58 M/mm3 (3.65-5.03) L 03/22/19 05:23 Hgb 7.1 gm/dl (11.8-15.2) L 03/22/19 05:23 Hct 21.8 % (35.5-45.6) L 03/22/19 05:23 MCV 84 fl (84-94) 03/22/19 05:23 MCH 27 pg (28-32) L 03/22/19 05:23 MCHC 32 % (32-34) 03/22/19 05:23 RDW 19.2 % (13.2-15.2) H 03/22/19 05:23 Plt Count 344 K/mm3 (140-440) 03/22/19 05:23 Lymph % (Auto) 8.2 % (13.4-35.0) L 03/20/19 08:40 Mckinley % (Auto) 8.3 % (0.0-7.3) H 03/20/19 08:40 Eos % (Auto) 5.7 % (0.0-4.3) H 03/20/19 08:40 Baso % (Auto) 0.5 % (0.0-1.8) 03/20/19 08:40 Lymph # 0.8 K/mm3 (1.2-5.4) L 03/20/19 08:40 Mckinley # 0.8 K/mm3 (0.0-0.8) 03/20/19 08:40 Eos # 0.5 K/mm3 (0.0-0.4) H 03/20/19 08:40 Baso # 0.0 K/mm3 (0.0-0.1) 03/20/19 08:40 Add Manual Diff Complete 03/21/19 06:30 Total Counted 100 03/21/19 06:30 Seg Neutrophils % 77.3 % (40.0-70.0) H 03/20/19 08:40 Seg Neuts % (Manual) 81.0 % (40.0-70.0) H 03/21/19 06:30 0 % 03/21/19 06:30 8.0 % (13.4-35.0) L 03/21/19 06:30 Reactive Lymphs % (Man) 0 % 03/21/19 06:30 1.0 % (0.0-7.3) 03/21/19 06:30 8.0 % (0.0-4.3) H 03/21/19 06:30 1.0 % (0.0-1.8) 03/21/19 06:30 1.0 % 03/21/19 06:30 0 % 03/21/19 06:30 0 % 03/21/19 06:30 0 % 03/21/19 06:30 Nucleated RBC % Not Reportable 03/21/19 06:30 Seg Neutrophils # 7.3 K/mm3 (1.8-7.7) 03/20/19 08:40 Seg Neutrophils # Man 6.7 K/mm3 (1.8-7.7) 03/21/19 06:30 Band Neutrophils # 0.0 K/mm3 03/21/19 06:30 0.7 K/mm3 (1.2-5.4) L 03/21/19 06:30 Abs React Lymphs (Man) 0.0 K/mm3 03/21/19 06:30 0.1 K/mm3 (0.0-0.8) 03/21/19 06:30 0.7 K/mm3 (0.0-0.4) H 03/21/19 06:30 0.1 K/mm3 (0.0-0.1) 03/21/19 06:30 0.1 K/mm3 03/21/19 06:30 0.0 K/mm3 03/21/19 06:30 0.0 K/mm3 03/21/19 06:30 Blast Cells # 0.0 K/mm3 03/21/19 06:30 WBC Morphology Not Reportable 03/21/19 06:30 Hypersegmented Neuts Not Reportable 03/21/19 06:30 Hyposegmented Neuts Not Reportable 03/21/19 06:30 Hypogranular Neuts Not Reportable 03/21/19 06:30 Not Reportable 03/21/19 06:30 Not Reportable 03/21/19 06:30 Not Reportable 03/21/19 06:30 Not Reportable 03/21/19 06:30 Not Reportable 03/21/19 06:30 Not Reportable 03/21/19 06:30 Consistent w auto 03/21/19 06:30 Not Reportable 03/21/19 06:30 Plt Clumps, EDTA Not Reportable 03/21/19 06:30 Not Reportable 03/21/19 06:30 Not Reportable 03/21/19 06:30 Not Reportable 03/21/19 06:30 Plt Morphology Comment Not Reportable 03/21/19 06:30 RBC Morphology Not Reportable 03/21/19 06:30 Dimorphic RBCs Not Reportable 03/21/19 06:30 Not Reportable 03/21/19 06:30 Few 03/21/19 06:30 Few 03/21/19 06:30 Few 03/21/19 06:30 Not Reportable 03/21/19 06:30 Not Reportable 03/21/19 06:30 Not Reportable 03/21/19 06:30 Not Reportable 03/21/19 06:30 Not Reportable 03/21/19 06:30 1+ 03/21/19 06:30 Not Reportable 03/21/19 06:30 Few 03/21/19 06:30 Not Reportable 03/21/19 06:30 Not Reportable 03/21/19 06:30 Not Reportable 03/21/19 06:30 Not Reportable 03/21/19 06:30 Not Reportable 03/21/19 06:30 Not Reportable 03/21/19 06:30 Not Reportable 03/21/19 06:30 Acanthocytes (Spur) Not Reportable 03/21/19 06:30 Rouleaux Not Reportable 03/21/19 06:30 Not Reportable 03/21/19 06:30 Not Reportable 03/21/19 06:30 Not Reportable 03/21/19 06:30 Not Reportable 03/21/19 06:30 Hem Pathologist Commnt No 03/21/19 06:30 PT 16.3 Sec. (12.2-14.9) H 03/01/19 09:39 INR 1.35 (0.87-1.13) H 03/01/19 09:39 APTT 33.7 Sec. (24.2-36.6) 02/21/19 18:30 2987.82 ng/mlDDU (0-234) H 02/22/19 05:54 POC ABG pH 7.510 (7.35-7.45) H 03/18/19 06:38 ABG pH 7.424 pH Units (7.350-7.450) 03/19/19 04:23 POC ABG pCO2 38.9 (35-45) 03/18/19 06:38 ABG pCO2 48.0 mm Hg 03/19/19 04:23 POC ABG pO2 164 (80-105) H 03/18/19 06:38 ABG pO2 78.3 mm Hg (80.0-90.0) L 03/19/19 04:23 POC ABG HCO3 31.0 (22-26 mml/L) 03/18/19 06:38 ABG HCO3 30.7 mmol/L (20.0-26.0) H 03/19/19 04:23 POC ABG Total CO2 32 (23-27mmol/L) 03/18/19 06:38 POC ABG O2 Sat 100 03/18/19 06:38 ABG O2 Saturation 97.0 % (95.0-99.0) 03/19/19 04:23 ABG O2 Content 7.9 (0.0-44) 03/19/19 04:23 POC ABG Base Excess 8 ((-2) - (+3)mmol/L) 03/18/19 06:38 ABG Base Excess 5.8 mmol/L (-2.0-3.0) H 03/19/19 04:23 ABG Hemoglobin 5.8 gm/dl (14.0-18.0) L 03/19/19 04:23 ABG Carboxyhemoglobin 2.0 % (0.0-5.0) 03/19/19 04:23 ABG Methemoglobin 0.4 % (0.0-1.5) 03/19/19 04:23 94.6 % (95.0-99.0) L 03/19/19 04:23 35 % 03/19/19 04:23 Sodium 147 mmol/L (137-145) H 03/22/19 05:23 Potassium 4.6 mmol/L (3.6-5.0) 03/22/19 05:23 Chloride 100.5 mmol/L (98-107) 03/22/19 05:23 Carbon Dioxide 30 mmol/L (22-30) 03/22/19 05:23 21 mmol/L 03/22/19 05:23 BUN 68 mg/dL (9-20) H 03/22/19 05:23 2.5 mg/dL (0.8-1.5) H 03/22/19 05:23 Estimated GFR 32 ml/min 03/22/19 05:23 27 % 03/22/19 05:23 Glucose 96 mg/dL (75-100) 03/22/19 05:23 POC Glucose 116 (70-105) H 03/22/19 05:31 Lactic Acid 1.00 mmol/L (0.7-2.0) 02/21/19 20:58 Calcium 10.3 mg/dL (8.4-10.2) H 03/22/19 05:23 Phosphorus 3.10 mg/dL (2.5-4.5) 03/15/19 04:38 Magnesium 2.00 mg/dL (1.7-2.3) 03/21/19 05:00 0.30 mg/dL (0.1-1.2) 03/21/19 05:00 AST 23 units/L (5-40) 03/21/19 05:00 ALT 18 units/L (7-56) 03/21/19 05:00 212 units/L (35-129) H 03/21/19 05:00 28.0 umol/L (25-60) 02/21/19 20:04 64 units/L (55-170) 02/22/19 03:42 CK-MB (CK-2) 3.7 ng/mL (0.0-4.0) 02/22/19 03:42 CK-MB (CK-2) Rel Index 5.7 (0-4) H 02/22/19 03:42 0.193 ng/mL (0.00-0.029) H* 02/22/19 03:42 6.7 g/dL (6.3-8.2) 03/21/19 05:00 2.2 g/dL (3.9-5) L 03/21/19 05:00 0.5 % 03/21/19 05:00 Triglycerides 51 mg/dL (2-149) 02/21/19 18:30 Cholesterol 82 mg/dL (50-199) 02/21/19 18:30 36 mg/dL (50-130) L 02/21/19 18:30 40 mg/dL (40-59) 02/21/19 18:30 2.05 % 02/21/19 18:30 TSH 2.760 mlU/mL (0.270-4.200) 02/21/19 20:04 PTH Intact 267.6 pg/mL (15-65) H 03/02/19 05:15 Salicylates < 0.3 mg/dL (2.8-20.0) L 02/21/19 20:04 Acetaminophen < 5.0 ug/mL (10.0-30.0) L 02/21/19 20:04 Hepatitis A IgM Ab Non-reactive (NonReactive) 02/23/19 11:20 Hep Bs Antigen Non-reactive (Negative) 02/23/19 11:20 Hep B Core IgM Ab Non-reactive (NonReactive) 02/23/19 11:20 Non-reactive (NonReactive) 02/23/19 11:20 Blood Type O POSITIVE 03/19/19 08:54 Antibody Screen Negative 03/19/19 08:54 Crossmatch See Detail 03/19/19 08:54 Active Medications - Current Medications Current Medications: Generic Name Dose Route Start Last Admin Trade Name Sivaq PRN Reason Stop Dose Admin Acetaminophen 650 mg 02/21/19 22:19 03/18/19 04:53 Tylenol PO 650 mg Q4H PRN Administration Pain MILD(1-3)/Fever >100.5/HILL Albuterol/Ipratropium 1 ampul 02/24/19 20:00 03/22/19 08:04 Duoneb *Not For Prn Use* IH 1 ampul TIDRT SANCHEZ Administration Lipase/Protease/Amylase 1 each 03/05/19 14:04 Pancrejewel Barrientos 10,500 Unit FEEDTUBE PRN PRN For Clogged Feeding Tube Dextrose 50 ml 02/21/19 22:22 03/03/19 17:37 D50w (25gm) Syringe IV 50 ml PRN PRN Administration Hypoglycemia Epoetin Solitario 10,000 unit 03/18/19 16:13 03/20/19 18:00 Procrit SUB-Q 10,000 unit UMA PRN Administration anemia Famotidine 20 mg 02/23/19 10:00 03/21/19 09:40 Pepcid PO 20 mg DAILY SANCHEZ Administration Heparin Sodium (Porcine) 5,000 unit 03/04/19 22:00 03/21/19 22:23 Heparin SUB-Q 5,000 unit Q12HR SANCHEZ Administration Hydrophilic Ointment 1 applic 02/21/19 18:24 03/05/19 08:16 Vaseline Lip Therapy TP 1 applic Q2HR PRN Administration Dry Lips Sodium Chloride 100 mls @ 999 mls/hr 02/26/19 09:00 Nacl 0.9% IV UMA PRN Hypotension Norepinephrine 8 mg/ Sodium 250 mls @ 3.75 mls/hr 03/18/19 13:00 03/19/19 09:17 Chloride IV 0 mcg/min TITR SANCHEZ 0 mls/hr Titration Protocol 2 MCG/MIN Insulin Human Regular 0 units 02/26/19 12:00 03/22/19 05:23 Humulin R SUB-Q Not Given Q6HR SANCHEZ Protocol Metoprolol Tartrate 2.5 mg 02/28/19 12:06 03/15/19 05:15 Lopressor IV 2.5 mg Q4HR PRN Administration Tachycardia Multi-Ingred Cream/Lotion/Oil/Oint 1 applic 02/21/19 18:24 Artificial Tears Ophth Oint OU Q4HR PRN Dry Eye(s) Ondansetron HCl 4 mg 02/21/19 22:19 03/12/19 21:39 Zofran IV 4 mg Q8H PRN Administration Nausea And Vomiting Risperidone 1 mg 02/25/19 13:00 03/21/19 09:39 Risperdal PO 1 mg DAILY SANCHEZ Administration Scopolamine 1 each 03/13/19 04:00 03/22/19 03:56 Transderm-Scop TD 1 each Q3D SANCHEZ Administration Sertraline HCl 100 mg 02/25/19 13:00 03/21/19 09:39 Zoloft PO 100 mg DAILY SANCHEZ Administration Simple Syrup 15 ml 03/05/19 14:04 Simple Syrup FEEDTUBE PRN PRN Hypoglycemia Simple Syrup 30 ml 03/05/19 14:04 Simple Syrup FEEDTUBE PRN PRN Hypoglycemia Sodium Bicarbonate 325 mg 03/05/19 14:04 Sodium Bicarbonate FEEDTUBE PRN PRN For Clogged Feeding Tube Sodium Chloride 10 ml 02/22/19 10:00 03/21/19 22:26 Sodium Chloride Flush Syringe 10 Ml IV 10 ml BID SANCHEZ Administration Sodium Chloride 10 ml 02/21/19 22:19 02/24/19 22:00 Sodium Chloride Flush Syringe 10 Ml IV 10 ml PRN PRN Administration LINE FLUSH Tramadol HCl 50 mg 03/05/19 10:08 03/18/19 04:38 Ultram PO 50 mg Q6H PRN Administration Pain, Moderate (4-6) Trimethoprim/Sulfamethoxazole 160 mg 03/19/19 15:00 03/21/19 09:41 Bactrim 200-40 Mg/5 Ml PO 160 mg Q24HR SANCHEZ Administration Nutrition/Malnutrition Assess - Dietary Evaluation Nutrition/Malnutrition Findings: Nutrition Notes Start: 02/22/19 12:51 Freq: Status: Active Protocol: Document 03/19/19 11:10 LM (Rec: 03/19/19 11:17 LM [email or web address]) Nutrition Notes Initial or Follow up Reassessment Current Diagnosis Diabetes,Hypertension Other Pertinent Diagnosis Sacral PU, ESRD on HD (T/Thurs /Sat), Schizophrenia,Blind in L eye,S/P trach Current Diet Vital AF 1.2 at 70 ml/hr Labs/Tests Reviewed Pertinent Medications Humulin Height 5 ft 10 in Weight 88.75 kg Nakina Body Weight (kg) 75.45 BMI 28.0 Subjective/Other Information Vital AF running 75 ml/hr at time of visit. Pt toleating TF . Percent of energy/protein needs met: 100%/100% Burn Absent Trauma Absent #2 Nutrition Diagnosis Increased nutrient needs ( specify in comment below) Diagnosis Progress(for reassessment Continues documentation) #1 Nutrition Diagnosis Inadequate oral intake Diagnosis Progress(for reassessment Continues documentation) Is patient on ventilator? Yes Is Patient Ambulatory and/or Out of Bed No REE-([facility]-confined to bed) 2024.576 Kcal/Kg value to use for calculation 18 Approximate Energy Requirements Using 1598 kcal/Kg Calculation Used for Recommendations Kcal/kg Additional Notes Protein Needs: 106-177g (1.2- 2g/kg) Fluid Needs: 1 ml/kcal Nutrition Intervention Change Diet Order: Continue TF Nutrition Support: Vital 1.2 at 70 ml/hr Water flush of 100 mls q 4 hrs Kcal 2,016 Protein (gm) 126 Fluid (mL) 1,362 Add Supplement/Snack (indicate name/kcal Abhilash BID /protein ) Provides kCal: 190 Provides Protein (gm) 5 Goal #1 TF tolerance Goal #2 Continue to meet at least 80% of calorie and protein needs via TF Anticipated Discharge Needs: Unable to determine at this time Follow-Up By: 03/26/19 Additional Comments F/U for TF rate/tolerance
[2019-03-22] MEDS: HEPARIN 5,000 UNIT/1 ML VIAL SUB-Q SCH ×2 (09:09→22:24)
[2019-03-22] MEDS: SERTRALINE 100 MG TAB PO SCH (09:10)
[2019-03-22] MEDS: risperiDONE 1 MG TAB PO SCH (09:10)
[2019-03-22] MEDS: SULFAMETHOXAZOLE/TRIMETHOPRIM 200-40 MG/5 ML ORAL LIQD 30 ML PO SCH (09:10)
[2019-03-22] MEDS: FAMOTIDINE 20 MG TAB PO SCH (09:10)
--- NOTE | 2019-03-22 12:27 | Progress Note ---
Assessment and Plan 63 y/o male with multiple medical issues admitted with altered mental status, acute respiratory failure requiring mechanical ventilation No new recs for today. Please see below. 1. Multi resistant acinetobacter found in sputum. ID aware. Plan in place. Likely secondary from multiple hospital stays with multiple courses of abx. 2. Placement on hold now given acute clinical change 3. If patient spikes another temp, will need repeat blood cultures. Does not make urine. 4. Remained stable on T-piece, transfer back to [facility] and then restart placement process. 5. Agree with ID assessment, however, no family willing to make this decision and ethics committee will not do that either. His nephew is an employee here in the lab, but I have not seen anyone at the bedside. Subjective Date of service: 03/22/19 Principal diagnosis: respiratory failure Interval history: Remains on T-piece. Stable. Did not transfer to [facility] yesterday, no orders in for today. Objective Vital Signs - 12hr 03/22/19 03/22/19 03/22/19 00:31 00:45 01:00 Temperature Pulse Rate 112 H 101 H 109 H Pulse Rate [ Anterior Bilateral Throughout] Pulse Rate [ From Monitor] Pulse Rate [ Throughout] Respiratory 23 23 21 Rate Respiratory Rate [Anterior Bilateral Throughout] Respiratory Rate [ Throughout] Blood Pressure 120/72 120/72 131/64 O2 Sat by Pulse 100 100 100 Oximetry O2 Sat by Pulse Oximetry [ Assessment] 03/22/19 03/22/19 03/22/19 01:15 01:31 01:45 Temperature Pulse Rate 95 H 112 H 111 H Pulse Rate [ Anterior Bilateral Throughout] Pulse Rate [ From Monitor] Pulse Rate [ Throughout] Respiratory 30 H 15 36 H Rate Respiratory Rate [Anterior Bilateral Throughout] Respiratory Rate [ Throughout] Blood Pressure 131/64 131/64 131/64 O2 Sat by Pulse 100 100 98 Oximetry O2 Sat by Pulse Oximetry [ Assessment] 03/22/19 03/22/19 03/22/19 02:01 03:00 03:25 Temperature 98.8 F Pulse Rate 107 H 110 H Pulse Rate [ Anterior Bilateral Throughout] Pulse Rate [ From Monitor] Pulse Rate [ Throughout] Respiratory 31 H 29 H Rate Respiratory Rate [Anterior Bilateral Throughout] Respiratory Rate [ Throughout] Blood Pressure 127/77 129/73 O2 Sat by Pulse 97 97 Oximetry O2 Sat by Pulse Oximetry [ Assessment] 03/22/19 03/22/19 03/22/19 04:00 04:25 05:01 Temperature Pulse Rate 100 H 109 H Pulse Rate [ Anterior Bilateral Throughout] Pulse Rate [ 103 H From Monitor] Pulse Rate [ Throughout] Respiratory 31 H 25 H Rate Respiratory Rate [Anterior Bilateral Throughout] Respiratory Rate [ Throughout] Blood Pressure 121/67 132/60 O2 Sat by Pulse 100 98 Oximetry O2 Sat by Pulse 99 Oximetry [ Assessment] 03/22/19 03/22/19 03/22/19 06:00 07:00 07:28 Temperature Pulse Rate 106 H 100 H Pulse Rate [ Anterior Bilateral Throughout] Pulse Rate [ 110 H From Monitor] Pulse Rate [ Throughout] Respiratory 25 H 25 H 27 H Rate Respiratory Rate [Anterior Bilateral Throughout] Respiratory Rate [ Throughout] Blood Pressure 126/72 126/72 O2 Sat by Pulse 97 99 99 Oximetry O2 Sat by Pulse Oximetry [ Assessment] 03/22/19 03/22/19 03/22/19 07:31 08:00 08:01 Temperature 98.6 F Pulse Rate 120 H Pulse Rate [ 116 H Anterior Bilateral Throughout] Pulse Rate [ From Monitor] Pulse Rate [ 112 H Throughout] Respiratory 29 H Rate Respiratory 29 H Rate [Anterior Bilateral Throughout] Respiratory 21 Rate [ Throughout] Blood Pressure 119/69 O2 Sat by Pulse 88 Oximetry O2 Sat by Pulse Oximetry [ Assessment] 03/22/19 03/22/19 03/22/19 08:10 08:11 09:00 Temperature Pulse Rate 92 H 112 H Pulse Rate [ Anterior Bilateral Throughout] Pulse Rate [ From Monitor] Pulse Rate [ Throughout] Respiratory 32 H Rate Respiratory Rate [Anterior Bilateral Throughout] Respiratory Rate [ Throughout] Blood Pressure 128/71 O2 Sat by Pulse 95 95 Oximetry O2 Sat by Pulse Oximetry [ Assessment] 03/22/19 03/22/19 03/22/19 10:01 11:01 12:00 Temperature 98.4 F Pulse Rate 115 H 113 H 118 H Pulse Rate [ Anterior Bilateral Throughout] Pulse Rate [ 110 H From Monitor] Pulse Rate [ Throughout] Respiratory 26 H 27 H 32 H Rate Respiratory Rate [Anterior Bilateral Throughout] Respiratory Rate [ Throughout] Blood Pressure 128/71 138/71 145/70 O2 Sat by Pulse 97 99 98 Oximetry O2 Sat by Pulse Oximetry [ Assessment] Constitutional: no acute distress, alert Eyes: non-icteric ENT: oropharynx moist Neck: supple Effort: normal Ascultation: Bilateral: diminished breath sounds, other (coarse BS bilaterally) Percussion: Bilateral: not dull Cardiovascular: other (tachy, RR; no mrg) Gastrointestinal: normoactive bowel sounds, soft, non-tender, non-distended, other (ostomy in place, brown stool) Extremities: no cyanosis, no edema, pink and warm Neurologic: other (mild weakness LUE, o/w nonfocal) Psychiatric: other (unable to assess) CBC and BMP: 03/22/19 05:23 03/22/19 05:23 ABG, PT/INR, D-dimer: ABG POC ABG pH 7.510 (7.35-7.45) H 03/18/19 06:38 ABG pH 7.424 pH Units (7.350-7.450) 03/19/19 04:23 POC ABG pCO2 38.9 (35-45) 03/18/19 06:38 ABG pCO2 48.0 mm Hg 03/19/19 04:23 POC ABG pO2 164 (80-105) H 03/18/19 06:38 ABG pO2 78.3 mm Hg (80.0-90.0) L 03/19/19 04:23 POC ABG HCO3 31.0 (22-26 mml/L) 03/18/19 06:38 POC ABG Total CO2 32 (23-27mmol/L) 03/18/19 06:38 POC ABG O2 Sat 100 03/18/19 06:38 ABG O2 Saturation 97.0 % (95.0-99.0) 03/19/19 04:23 PT/INR, D-dimer PT 16.3 Sec. (12.2-14.9) H 03/01/19 09:39 INR 1.35 (0.87-1.13) H 03/01/19 09:39 2987.82 ng/mlDDU (0-234) H 02/22/19 05:54 Abnormal lab findings: Abnormal Labs 02/21/19 02/21/19 02/21/19 18:30 18:30 18:30 WBC RBC 3.26 L Hgb 8.8 L Hct 29.0 L MCH 27 L MCHC 30 L RDW 19.1 H Lymph % (Auto) 6.1 L [place] % (Auto) Eos % (Auto) Lymph # 0.4 L [place] # Eos # Seg Neutrophils % 86.2 H Seg Neuts % (Manual) Lymphocytes % (Manual) Eosinophils % (Manual) Seg Neutrophils # Lymphocytes # (Manual) Eosinophils # (Manual) PT INR D-Dimer POC ABG pH POC ABG pCO2 POC ABG pO2 ABG pO2 ABG HCO3 ABG Base Excess ABG Hemoglobin Oxyhemoglobin Sodium 133 L Potassium 3.3 L Chloride 93.1 L Carbon Dioxide 33 H BUN Creatinine Glucose 161 H POC Glucose Calcium Phosphorus ALT Alkaline Phosphatase 136 H Total Creatine Kinase 37 L CK-MB (CK-2) Rel Index Troponin T 0.192 H* Albumin 2.4 L LDL Cholesterol Direct 36 L PTH Intact Salicylates Acetaminophen Crossmatch 02/21/19 02/21/19 02/21/19 18:42 20:04 20:04 WBC RBC Hgb Hct MCH MCHC RDW Lymph % (Auto) [place] % (Auto) Eos % (Auto) Lymph # [place] # Eos # Seg Neutrophils % Seg Neuts % (Manual) Lymphocytes % (Manual) Eosinophils % (Manual) Seg Neutrophils # Lymphocytes # (Manual) Eosinophils # (Manual) PT INR D-Dimer POC ABG pH POC ABG pCO2 56.7 H POC ABG pO2 291 H ABG pO2 ABG HCO3 ABG Base Excess ABG Hemoglobin Oxyhemoglobin Sodium Potassium Chloride Carbon Dioxide BUN Creatinine Glucose POC Glucose Calcium Phosphorus ALT Alkaline Phosphatase Total Creatine Kinase CK-MB (CK-2) Rel Index Troponin T Albumin LDL Cholesterol Direct PTH Intact Salicylates < 0.3 L Acetaminophen < 5.0 L Crossmatch 02/21/19 02/22/19 02/22/19 22:35 03:42 03:42 WBC RBC 3.20 L Hgb 8.8 L Hct 27.6 L MCH MCHC RDW 18.9 H Lymph % (Auto) 7.4 L [place] % (Auto) Eos % (Auto) Lymph # 0.7 L [place] # Eos # Seg Neutrophils % 84.7 H Seg Neuts % (Manual) Lymphocytes % (Manual) Eosinophils % (Manual) Seg Neutrophils # Lymphocytes # (Manual) Eosinophils # (Manual) PT INR D-Dimer POC ABG pH POC ABG pCO2 POC ABG pO2 ABG pO2 ABG HCO3 ABG Base Excess ABG Hemoglobin Oxyhemoglobin Sodium 134 L Potassium 2.6 L* D Chloride Carbon Dioxide BUN Creatinine Glucose POC Glucose Calcium Phosphorus ALT Alkaline Phosphatase Total Creatine Kinase CK-MB (CK-2) Rel Index 5.2 H Troponin T 0.202 H* Albumin LDL Cholesterol Direct PTH Intact Salicylates Acetaminophen Crossmatch 02/22/19 02/22/19 02/22/19 03:42 05:54 09:04 WBC RBC Hgb Hct MCH MCHC RDW Lymph % (Auto) [place] % (Auto) Eos % (Auto) Lymph # [place] # Eos # Seg Neutrophils % Seg Neuts % (Manual) Lymphocytes % (Manual) Eosinophils % (Manual) Seg Neutrophils # Lymphocytes # (Manual) Eosinophils # (Manual) PT INR D-Dimer 2987.82 H POC ABG pH 7.451 H POC ABG pCO2 POC ABG pO2 ABG pO2 ABG HCO3 ABG Base Excess ABG Hemoglobin Oxyhemoglobin Sodium Potassium Chloride Carbon Dioxide BUN Creatinine Glucose POC Glucose Calcium Phosphorus ALT Alkaline Phosphatase Total Creatine Kinase CK-MB (CK-2) Rel Index 5.7 H Troponin T 0.193 H* Albumin LDL Cholesterol Direct PTH Intact Salicylates Acetaminophen Crossmatch 02/22/19 02/22/19 02/23/19 10:36 23:56 00:52 WBC RBC Hgb Hct MCH MCHC RDW Lymph % (Auto) [place] % (Auto) Eos % (Auto) Lymph # [place] # Eos # Seg Neutrophils % Seg Neuts % (Manual) Lymphocytes % (Manual) Eosinophils % (Manual) Seg Neutrophils # Lymphocytes # (Manual) Eosinophils # (Manual) PT INR D-Dimer POC ABG pH POC ABG pCO2 POC ABG pO2 ABG pO2 ABG HCO3 ABG Base Excess ABG Hemoglobin Oxyhemoglobin Sodium Potassium 3.1 L Chloride Carbon Dioxide BUN Creatinine Glucose POC Glucose 58 L 111 H Calcium Phosphorus ALT Alkaline Phosphatase Total Creatine Kinase CK-MB (CK-2) Rel Index Troponin T Albumin LDL Cholesterol Direct PTH Intact Salicylates Acetaminophen Crossmatch 02/23/19 02/23/19 02/23/19 05:00 06:35 14:26 WBC RBC Hgb Hct MCH MCHC RDW Lymph % (Auto) [place] % (Auto) Eos % (Auto) Lymph # [place] # Eos # Seg Neutrophils % Seg Neuts % (Manual) Lymphocytes % (Manual) Eosinophils % (Manual) Seg Neutrophils # Lymphocytes # (Manual) Eosinophils # (Manual) PT INR D-Dimer POC ABG pH POC ABG pCO2 POC ABG pO2 ABG pO2 ABG HCO3 ABG Base Excess ABG Hemoglobin Oxyhemoglobin Sodium 135 L Potassium 3.1 L Chloride Carbon Dioxide BUN 21 H Creatinine 2.0 H Glucose 57 L POC Glucose 64 L 62 L Calcium Phosphorus ALT Alkaline Phosphatase Total Creatine Kinase CK-MB (CK-2) Rel Index Troponin T Albumin LDL Cholesterol Direct PTH Intact Salicylates Acetaminophen Crossmatch 02/24/19 02/24/19 02/24/19 02:11 04:12 04:55 WBC RBC 2.84 L Hgb 7.8 L Hct 24.5 L MCH MCHC RDW 19.5 H Lymph % (Auto) [place] % (Auto) Eos % (Auto) Lymph # [place] # Eos # Seg Neutrophils % Seg Neuts % (Manual) Lymphocytes % (Manual) Eosinophils % (Manual) Seg Neutrophils # Lymphocytes # (Manual) Eosinophils # (Manual) PT INR D-Dimer POC ABG pH 7.511 H POC ABG pCO2 33.9 L POC ABG pO2 62 L ABG pO2 ABG HCO3 ABG Base Excess ABG Hemoglobin Oxyhemoglobin Sodium Potassium Chloride Carbon Dioxide BUN Creatinine Glucose POC Glucose 69 L Calcium Phosphorus ALT Alkaline Phosphatase Total Creatine Kinase CK-MB (CK-2) Rel Index Troponin T Albumin LDL Cholesterol Direct PTH Intact Salicylates Acetaminophen Crossmatch 02/24/19 02/24/19 02/25/19 04:55 05:41 04:45 WBC RBC Hgb Hct MCH MCHC RDW Lymph % (Auto) [place] % (Auto) Eos % (Auto) Lymph # [place] # Eos # Seg Neutrophils % Seg Neuts % (Manual) Lymphocytes % (Manual) Eosinophils % (Manual) Seg Neutrophils # Lymphocytes # (Manual) Eosinophils # (Manual) PT INR D-Dimer POC ABG pH 7.466 H POC ABG pCO2 POC ABG pO2 75 L ABG pO2 ABG HCO3 ABG Base Excess ABG Hemoglobin Oxyhemoglobin Sodium Potassium Chloride Carbon Dioxide BUN Creatinine 1.8 H Glucose 73 L POC Glucose 127 H Calcium Phosphorus ALT Alkaline Phosphatase Total Creatine Kinase CK-MB (CK-2) Rel Index Troponin T Albumin LDL Cholesterol Direct PTH Intact Salicylates Acetaminophen Crossmatch 02/25/19 02/25/19 02/26/19 16:34 21:33 03:45 WBC RBC 2.96 L Hgb 8.0 L Hct 25.8 L MCH 27 L MCHC 31 L RDW 20.0 H Lymph % (Auto) [place] % (Auto) Eos % (Auto) Lymph # [place] # Eos # Seg Neutrophils % Seg Neuts % (Manual) Lymphocytes % (Manual) Eosinophils % (Manual) Seg Neutrophils # Lymphocytes # (Manual) Eosinophils # (Manual) PT INR D-Dimer POC ABG pH POC ABG pCO2 POC ABG pO2 ABG pO2 ABG HCO3 ABG Base Excess ABG Hemoglobin Oxyhemoglobin Sodium Potassium Chloride Carbon Dioxide BUN Creatinine Glucose POC Glucose 141 H 106 H Calcium Phosphorus ALT Alkaline Phosphatase Total Creatine Kinase CK-MB (CK-2) Rel Index Troponin T Albumin LDL Cholesterol Direct PTH Intact Salicylates Acetaminophen Crossmatch 02/26/19 02/26/19 02/26/19 03:45 04:13 07:53 WBC RBC Hgb Hct MCH MCHC RDW Lymph % (Auto) [place] % (Auto) Eos % (Auto) Lymph # [place] # Eos # Seg Neutrophils % Seg Neuts % (Manual) Lymphocytes % (Manual) Eosinophils % (Manual) Seg Neutrophils # Lymphocytes # (Manual) Eosinophils # (Manual) PT INR D-Dimer POC ABG pH 7.470 H POC ABG pCO2 POC ABG pO2 ABG pO2 ABG HCO3 ABG Base Excess ABG Hemoglobin Oxyhemoglobin Sodium Potassium Chloride Carbon Dioxide BUN Creatinine 1.8 H Glucose POC Glucose 110 H Calcium Phosphorus ALT Alkaline Phosphatase Total Creatine Kinase CK-MB (CK-2) Rel Index Troponin T Albumin LDL Cholesterol Direct PTH Intact Salicylates Acetaminophen Crossmatch 02/26/19 02/26/19 02/27/19 11:56 17:43 00:12 WBC RBC Hgb Hct MCH MCHC RDW Lymph % (Auto) [place] % (Auto) Eos % (Auto) Lymph # [place] # Eos # Seg Neutrophils % Seg Neuts % (Manual) Lymphocytes % (Manual) Eosinophils % (Manual) Seg Neutrophils # Lymphocytes # (Manual) Eosinophils # (Manual) PT INR D-Dimer POC ABG pH POC ABG pCO2 POC ABG pO2 ABG pO2 ABG HCO3 ABG Base Excess ABG Hemoglobin Oxyhemoglobin Sodium Potassium Chloride Carbon Dioxide BUN Creatinine Glucose POC Glucose 112 H 127 H 127 H Calcium Phosphorus ALT Alkaline Phosphatase Total Creatine Kinase CK-MB (CK-2) Rel Index Troponin T Albumin LDL Cholesterol Direct PTH Intact Salicylates Acetaminophen Crossmatch 02/27/19 02/27/19 02/27/19 04:35 13:15 18:02 WBC RBC Hgb Hct MCH MCHC RDW Lymph % (Auto) [place] % (Auto) Eos % (Auto) Lymph # [place] # Eos # Seg Neutrophils % Seg Neuts % (Manual) Lymphocytes % (Manual) Eosinophils % (Manual) Seg Neutrophils # Lymphocytes # (Manual) Eosinophils # (Manual) PT INR D-Dimer POC ABG pH 7.483 H POC ABG pCO2 POC ABG pO2 61 L ABG pO2 ABG HCO3 ABG Base Excess ABG Hemoglobin Oxyhemoglobin Sodium Potassium Chloride Carbon Dioxide BUN Creatinine Glucose POC Glucose 143 H 106 H Calcium Phosphorus ALT Alkaline Phosphatase Total Creatine Kinase CK-MB (CK-2) Rel Index Troponin T Albumin LDL Cholesterol Direct PTH Intact Salicylates Acetaminophen Crossmatch 02/28/19 02/28/19 02/28/19 05:50 11:59 17:52 WBC RBC Hgb Hct MCH MCHC RDW Lymph % (Auto) [place] % (Auto) Eos % (Auto) Lymph # [place] # Eos # Seg Neutrophils % Seg Neuts % (Manual) Lymphocytes % (Manual) Eosinophils % (Manual) Seg Neutrophils # Lymphocytes # (Manual) Eosinophils # (Manual) PT INR D-Dimer POC ABG pH POC ABG pCO2 POC ABG pO2 ABG pO2 ABG HCO3 ABG Base Excess ABG Hemoglobin Oxyhemoglobin Sodium Potassium Chloride Carbon Dioxide BUN Creatinine Glucose POC Glucose 134 H 128 H 142 H Calcium Phosphorus ALT Alkaline Phosphatase Total Creatine Kinase CK-MB (CK-2) Rel Index Troponin T Albumin LDL Cholesterol Direct PTH Intact Salicylates Acetaminophen Crossmatch 02/28/19 03/01/19 03/01/19 23:13 05:40 09:39 WBC RBC Hgb Hct MCH MCHC RDW Lymph % (Auto) [place] % (Auto) Eos % (Auto) Lymph # [place] # Eos # Seg Neutrophils % Seg Neuts % (Manual) Lymphocytes % (Manual) Eosinophils % (Manual) Seg Neutrophils # Lymphocytes # (Manual) Eosinophils # (Manual) PT 16.3 H INR 1.35 H D-Dimer POC ABG pH POC ABG pCO2 POC ABG pO2 ABG pO2 ABG HCO3 ABG Base Excess ABG Hemoglobin Oxyhemoglobin Sodium Potassium Chloride Carbon Dioxide BUN Creatinine Glucose POC Glucose 112 H 111 H Calcium Phosphorus ALT Alkaline Phosphatase Total Creatine Kinase CK-MB (CK-2) Rel Index Troponin T Albumin LDL Cholesterol Direct PTH Intact Salicylates Acetaminophen Crossmatch 03/01/19 03/01/19 03/01/19 11:56 13:54 17:59 WBC RBC Hgb Hct MCH MCHC RDW Lymph % (Auto) [place] % (Auto) Eos % (Auto) Lymph # [place] # Eos # Seg Neutrophils % Seg Neuts % (Manual) Lymphocytes % (Manual) Eosinophils % (Manual) Seg Neutrophils # Lymphocytes # (Manual) Eosinophils # (Manual) PT INR D-Dimer POC ABG pH POC ABG pCO2 POC ABG pO2 ABG pO2 ABG HCO3 ABG Base Excess ABG Hemoglobin Oxyhemoglobin Sodium Potassium Chloride Carbon Dioxide BUN 33 H Creatinine 2.8 H D Glucose 176 H POC Glucose 199 H 147 H Calcium Phosphorus ALT Alkaline Phosphatase Total Creatine Kinase CK-MB (CK-2) Rel Index Troponin T Albumin LDL Cholesterol Direct PTH Intact Salicylates Acetaminophen Crossmatch 03/02/19 03/02/19 03/02/19 05:15 05:15 05:15 WBC RBC 2.73 L Hgb 7.4 L Hct 23.0 L MCH 27 L MCHC RDW 19.9 H Lymph % (Auto) [place] % (Auto) 7.9 H Eos % (Auto) 7.6 H Lymph # 1.0 L [place] # Eos # 0.5 H Seg Neutrophils % Seg Neuts % (Manual) Lymphocytes % (Manual) Eosinophils % (Manual) Seg Neutrophils # Lymphocytes # (Manual) Eosinophils # (Manual) PT INR D-Dimer POC ABG pH POC ABG pCO2 POC ABG pO2 ABG pO2 ABG HCO3 ABG Base Excess ABG Hemoglobin Oxyhemoglobin Sodium Potassium Chloride Carbon Dioxide BUN 43 H Creatinine 3.2 H Glucose POC Glucose Calcium Phosphorus 2.30 L ALT Alkaline Phosphatase Total Creatine Kinase CK-MB (CK-2) Rel Index Troponin T Albumin LDL Cholesterol Direct PTH Intact 267.6 H Salicylates Acetaminophen Crossmatch 03/02/19 03/02/19 03/03/19 12:32 18:20 13:30 WBC RBC Hgb Hct MCH MCHC RDW Lymph % (Auto) [place] % (Auto) Eos % (Auto) Lymph # [place] # Eos # Seg Neutrophils % Seg Neuts % (Manual) Lymphocytes % (Manual) Eosinophils % (Manual) Seg Neutrophils # Lymphocytes # (Manual) Eosinophils # (Manual) PT INR D-Dimer POC ABG pH POC ABG pCO2 POC ABG pO2 ABG pO2 ABG HCO3 ABG Base Excess ABG Hemoglobin Oxyhemoglobin Sodium Potassium Chloride 97.3 L Carbon Dioxide BUN 26 H Creatinine 2.2 H Glucose 73 L POC Glucose 111 H 156 H Calcium Phosphorus ALT Alkaline Phosphatase Total Creatine Kinase CK-MB (CK-2) Rel Index Troponin T Albumin LDL Cholesterol Direct PTH Intact Salicylates Acetaminophen Crossmatch 03/04/19 03/04/19 03/04/19 00:02 05:37 05:40 WBC RBC 2.63 L Hgb 7.2 L Hct 22.2 L MCH MCHC RDW 20.2 H Lymph % (Auto) 10.5 L [place] % (Auto) Eos % (Auto) 4.6 H Lymph # 0.7 L [place] # Eos # Seg Neutrophils % 76.9 H Seg Neuts % (Manual) Lymphocytes % (Manual) Eosinophils % (Manual) Seg Neutrophils # Lymphocytes # (Manual) Eosinophils # (Manual) PT INR D-Dimer POC ABG pH POC ABG pCO2 POC ABG pO2 ABG pO2 ABG HCO3 ABG Base Excess ABG Hemoglobin Oxyhemoglobin Sodium Potassium Chloride Carbon Dioxide BUN Creatinine Glucose POC Glucose 136 H 123 H Calcium Phosphorus ALT Alkaline Phosphatase Total Creatine Kinase CK-MB (CK-2) Rel Index Troponin T Albumin LDL Cholesterol Direct PTH Intact Salicylates Acetaminophen Crossmatch 03/04/19 03/04/19 03/04/19 05:40 11:39 23:20 WBC RBC Hgb Hct MCH MCHC RDW Lymph % (Auto) [place] % (Auto) Eos % (Auto) Lymph # [place] # Eos # Seg Neutrophils % Seg Neuts % (Manual) Lymphocytes % (Manual) Eosinophils % (Manual) Seg Neutrophils # Lymphocytes # (Manual) Eosinophils # (Manual) PT INR D-Dimer POC ABG pH POC ABG pCO2 POC ABG pO2 ABG pO2 ABG HCO3 ABG Base Excess ABG Hemoglobin Oxyhemoglobin Sodium Potassium Chloride Carbon Dioxide BUN 34 H Creatinine 2.7 H Glucose 114 H POC Glucose 175 H 151 H Calcium Phosphorus ALT Alkaline Phosphatase Total Creatine Kinase CK-MB (CK-2) Rel Index Troponin T Albumin LDL Cholesterol Direct PTH Intact Salicylates Acetaminophen Crossmatch 03/05/19 03/05/19 03/05/19 05:37 12:08 17:11 WBC RBC Hgb Hct MCH MCHC RDW Lymph % (Auto) [place] % (Auto) Eos % (Auto) Lymph # [place] # Eos # Seg Neutrophils % Seg Neuts % (Manual) Lymphocytes % (Manual) Eosinophils % (Manual) Seg Neutrophils # Lymphocytes # (Manual) Eosinophils # (Manual) PT INR D-Dimer POC ABG pH POC ABG pCO2 POC ABG pO2 ABG pO2 ABG HCO3 ABG Base Excess ABG Hemoglobin Oxyhemoglobin Sodium Potassium Chloride Carbon Dioxide BUN Creatinine Glucose POC Glucose 134 H 135 H 135 H Calcium Phosphorus ALT Alkaline Phosphatase Total Creatine Kinase CK-MB (CK-2) Rel Index Troponin T Albumin LDL Cholesterol Direct PTH Intact Salicylates Acetaminophen Crossmatch 03/06/19 03/06/19 03/06/19 00:16 13:05 18:09 WBC RBC Hgb Hct MCH MCHC RDW Lymph % (Auto) [place] % (Auto) Eos % (Auto) Lymph # [place] # Eos # Seg Neutrophils % Seg Neuts % (Manual) Lymphocytes % (Manual) Eosinophils % (Manual) Seg Neutrophils # Lymphocytes # (Manual) Eosinophils # (Manual) PT INR D-Dimer POC ABG pH POC ABG pCO2 POC ABG pO2 ABG pO2 ABG HCO3 ABG Base Excess ABG Hemoglobin Oxyhemoglobin Sodium Potassium Chloride Carbon Dioxide BUN Creatinine Glucose POC Glucose 117 H 113 H 131 H Calcium Phosphorus ALT Alkaline Phosphatase Total Creatine Kinase CK-MB (CK-2) Rel Index Troponin T Albumin LDL Cholesterol Direct PTH Intact Salicylates Acetaminophen Crossmatch 03/07/19 03/08/19 03/08/19 05:25 05:33 16:00 WBC RBC 2.44 L Hgb 6.6 L Hct 20.8 L MCH 27 L MCHC RDW 19.2 H Lymph % (Auto) [place] % (Auto) Eos % (Auto) 8.6 H Lymph # 0.8 L [place] # Eos # 0.5 H Seg Neutrophils % 70.7 H Seg Neuts % (Manual) Lymphocytes % (Manual) Eosinophils % (Manual) Seg Neutrophils # Lymphocytes # (Manual) Eosinophils # (Manual) PT INR D-Dimer POC ABG pH POC ABG pCO2 POC ABG pO2 ABG pO2 ABG HCO3 ABG Base Excess ABG Hemoglobin Oxyhemoglobin Sodium Potassium Chloride Carbon Dioxide BUN Creatinine Glucose POC Glucose 106 H 108 H Calcium Phosphorus ALT Alkaline Phosphatase Total Creatine Kinase CK-MB (CK-2) Rel Index Troponin T Albumin LDL Cholesterol Direct PTH Intact Salicylates Acetaminophen Crossmatch 03/08/19 03/08/19 03/08/19 16:00 18:38 Unknown WBC RBC Hgb Hct MCH MCHC RDW Lymph % (Auto) [place] % (Auto) Eos % (Auto) Lymph # [place] # Eos # Seg Neutrophils % Seg Neuts % (Manual) Lymphocytes % (Manual) Eosinophils % (Manual) Seg Neutrophils # Lymphocytes # (Manual) Eosinophils # (Manual) PT INR D-Dimer POC ABG pH POC ABG pCO2 POC ABG pO2 ABG pO2 ABG HCO3 ABG Base Excess ABG Hemoglobin Oxyhemoglobin Sodium Potassium 5.4 H D Chloride Carbon Dioxide BUN 47 H Creatinine 2.6 H Glucose POC Glucose 123 H Calcium Phosphorus ALT < 5 L Alkaline Phosphatase Total Creatine Kinase CK-MB (CK-2) Rel Index Troponin T Albumin 2.2 L LDL Cholesterol Direct PTH Intact Salicylates Acetaminophen Crossmatch See Detail 03/09/19 03/09/19 03/09/19 10:48 12:28 13:53 WBC RBC 2.85 L Hgb 7.7 L Hct 24.2 L MCH 27 L MCHC RDW 18.7 H Lymph % (Auto) [place] % (Auto) Eos % (Auto) Lymph # [place] # Eos # Seg Neutrophils % Seg Neuts % (Manual) Lymphocytes % (Manual) Eosinophils % (Manual) Seg Neutrophils # Lymphocytes # (Manual) Eosinophils # (Manual) PT INR D-Dimer POC ABG pH POC ABG pCO2 POC ABG pO2 ABG pO2 ABG HCO3 30.5 H ABG Base Excess 5.6 H ABG Hemoglobin 8.1 L Oxyhemoglobin 93.8 L Sodium Potassium Chloride Carbon Dioxide BUN Creatinine Glucose POC Glucose 114 H Calcium Phosphorus ALT Alkaline Phosphatase Total Creatine Kinase CK-MB (CK-2) Rel Index Troponin T Albumin LDL Cholesterol Direct PTH Intact Salicylates Acetaminophen Crossmatch 03/09/19 03/09/19 03/10/19 17:58 23:53 12:01 WBC RBC Hgb Hct MCH MCHC RDW Lymph % (Auto) [place] % (Auto) Eos % (Auto) Lymph # [place] # Eos # Seg Neutrophils % Seg Neuts % (Manual) Lymphocytes % (Manual) Eosinophils % (Manual) Seg Neutrophils # Lymphocytes # (Manual) Eosinophils # (Manual) PT INR D-Dimer POC ABG pH POC ABG pCO2 POC ABG pO2 ABG pO2 ABG HCO3 ABG Base Excess ABG Hemoglobin Oxyhemoglobin Sodium Potassium Chloride Carbon Dioxide BUN Creatinine Glucose POC Glucose 108 H 128 H 144 H Calcium Phosphorus ALT Alkaline Phosphatase Total Creatine Kinase CK-MB (CK-2) Rel Index Troponin T Albumin LDL Cholesterol Direct PTH Intact Salicylates Acetaminophen Crossmatch 03/10/19 03/11/19 03/11/19 16:50 00:24 05:02 WBC RBC Hgb Hct MCH MCHC RDW Lymph % (Auto) [place] % (Auto) Eos % (Auto) Lymph # [place] # Eos # Seg Neutrophils % Seg Neuts % (Manual) Lymphocytes % (Manual) Eosinophils % (Manual) Seg Neutrophils # Lymphocytes # (Manual) Eosinophils # (Manual) PT INR D-Dimer POC ABG pH POC ABG pCO2 POC ABG pO2 ABG pO2 ABG HCO3 ABG Base Excess ABG Hemoglobin Oxyhemoglobin Sodium Potassium Chloride Carbon Dioxide BUN Creatinine Glucose POC Glucose 147 H 123 H 120 H Calcium Phosphorus ALT Alkaline Phosphatase Total Creatine Kinase CK-MB (CK-2) Rel Index Troponin T Albumin LDL Cholesterol Direct PTH Intact Salicylates Acetaminophen Crossmatch 03/11/19 03/11/19 03/11/19 11:56 12:20 18:37 WBC RBC Hgb Hct MCH MCHC RDW Lymph % (Auto) [place] % (Auto) Eos % (Auto) Lymph # [place] # Eos # Seg Neutrophils % Seg Neuts % (Manual) Lymphocytes % (Manual) Eosinophils % (Manual) Seg Neutrophils # Lymphocytes # (Manual) Eosinophils # (Manual) PT INR D-Dimer POC ABG pH POC ABG pCO2 POC ABG pO2 ABG pO2 ABG HCO3 ABG Base Excess ABG Hemoglobin Oxyhemoglobin Sodium Potassium 5.2 H Chloride Carbon Dioxide BUN Creatinine Glucose POC Glucose 123 H 125 H Calcium Phosphorus ALT Alkaline Phosphatase Total Creatine Kinase CK-MB (CK-2) Rel Index Troponin T Albumin LDL Cholesterol Direct PTH Intact Salicylates Acetaminophen Crossmatch 03/11/19 03/12/19 03/12/19 22:52 12:04 18:25 WBC RBC Hgb Hct MCH MCHC RDW Lymph % (Auto) [place] % (Auto) Eos % (Auto) Lymph # [place] # Eos # Seg Neutrophils % Seg Neuts % (Manual) Lymphocytes % (Manual) Eosinophils % (Manual) Seg Neutrophils # Lymphocytes # (Manual) Eosinophils # (Manual) PT INR D-Dimer POC ABG pH POC ABG pCO2 POC ABG pO2 ABG pO2 ABG HCO3 ABG Base Excess ABG Hemoglobin Oxyhemoglobin Sodium Potassium Chloride Carbon Dioxide BUN Creatinine Glucose POC Glucose 110 H 106 H 118 H Calcium Phosphorus ALT Alkaline Phosphatase Total Creatine Kinase CK-MB (CK-2) Rel Index Troponin T Albumin LDL Cholesterol Direct PTH Intact Salicylates Acetaminophen Crossmatch 03/12/19 03/13/19 03/13/19 23:36 04:38 04:38 WBC RBC 2.95 L Hgb 7.9 L Hct 24.9 L MCH 27 L MCHC RDW 19.9 H Lymph % (Auto) 11.1 L [place] % (Auto) 8.1 H Eos % (Auto) 4.4 H Lymph # 0.9 L [place] # Eos # Seg Neutrophils % 75.4 H Seg Neuts % (Manual) Lymphocytes % (Manual) Eosinophils % (Manual) Seg Neutrophils # Lymphocytes # (Manual) Eosinophils # (Manual) PT INR D-Dimer POC ABG pH POC ABG pCO2 POC ABG pO2 ABG pO2 ABG HCO3 ABG Base Excess ABG Hemoglobin Oxyhemoglobin Sodium 136 L Potassium 5.1 H Chloride 93.8 L Carbon Dioxide BUN 48 H Creatinine 2.7 H Glucose 102 H POC Glucose 115 H Calcium Phosphorus ALT < 5 L Alkaline Phosphatase 143 H Total Creatine Kinase CK-MB (CK-2) Rel Index Troponin T Albumin 2.5 L LDL Cholesterol Direct PTH Intact Salicylates Acetaminophen Crossmatch 03/13/19 03/13/19 03/13/19 05:33 13:37 18:03 WBC RBC Hgb Hct MCH MCHC RDW Lymph % (Auto) [place] % (Auto) Eos % (Auto) Lymph # [place] # Eos # Seg Neutrophils % Seg Neuts % (Manual) Lymphocytes % (Manual) Eosinophils % (Manual) Seg Neutrophils # Lymphocytes # (Manual) Eosinophils # (Manual) PT INR D-Dimer POC ABG pH POC ABG pCO2 POC ABG pO2 ABG pO2 ABG HCO3 ABG Base Excess ABG Hemoglobin Oxyhemoglobin Sodium Potassium Chloride Carbon Dioxide BUN Creatinine Glucose POC Glucose 140 H 150 H 158 H Calcium Phosphorus ALT Alkaline Phosphatase Total Creatine Kinase CK-MB (CK-2) Rel Index Troponin T Albumin LDL Cholesterol Direct PTH Intact Salicylates Acetaminophen Crossmatch 03/13/19 03/14/19 03/14/19 23:32 05:24 12:20 WBC RBC Hgb Hct MCH MCHC RDW Lymph % (Auto) [place] % (Auto) Eos % (Auto) Lymph # [place] # Eos # Seg Neutrophils % Seg Neuts % (Manual) Lymphocytes % (Manual) Eosinophils % (Manual) Seg Neutrophils # Lymphocytes # (Manual) Eosinophils # (Manual) PT INR D-Dimer POC ABG pH POC ABG pCO2 POC ABG pO2 ABG pO2 ABG HCO3 ABG Base Excess ABG Hemoglobin Oxyhemoglobin Sodium Potassium Chloride Carbon Dioxide BUN Creatinine Glucose POC Glucose 162 H 146 H 127 H Calcium Phosphorus ALT Alkaline Phosphatase Total Creatine Kinase CK-MB (CK-2) Rel Index Troponin T Albumin LDL Cholesterol Direct PTH Intact Salicylates Acetaminophen Crossmatch 03/14/19 03/14/19 03/15/19 18:05 23:57 04:38 WBC 12.8 H RBC 3.11 L Hgb 8.1 L Hct 26.5 L MCH 26 L MCHC 31 L RDW 19.7 H Lymph % (Auto) 4.4 L [place] % (Auto) 7.4 H Eos % (Auto) Lymph # 0.6 L [place] # 0.9 H Eos # Seg Neutrophils % 87.3 H Seg Neuts % (Manual) Lymphocytes % (Manual) Eosinophils % (Manual) Seg Neutrophils # 11.2 H Lymphocytes # (Manual) Eosinophils # (Manual) PT INR D-Dimer POC ABG pH POC ABG pCO2 POC ABG pO2 ABG pO2 ABG HCO3 ABG Base Excess ABG Hemoglobin Oxyhemoglobin Sodium Potassium Chloride Carbon Dioxide BUN Creatinine Glucose POC Glucose 142 H 155 H Calcium Phosphorus ALT Alkaline Phosphatase Total Creatine Kinase CK-MB (CK-2) Rel Index Troponin T Albumin LDL Cholesterol Direct PTH Intact Salicylates Acetaminophen Crossmatch 03/15/19 03/15/19 03/15/19 04:38 05:31 11:32 WBC RBC Hgb Hct MCH MCHC RDW Lymph % (Auto) [place] % (Auto) Eos % (Auto) Lymph # [place] # Eos # Seg Neutrophils % Seg Neuts % (Manual) Lymphocytes % (Manual) Eosinophils % (Manual) Seg Neutrophils # Lymphocytes # (Manual) Eosinophils # (Manual) PT INR D-Dimer POC ABG pH POC ABG pCO2 POC ABG pO2 ABG pO2 ABG HCO3 ABG Base Excess ABG Hemoglobin Oxyhemoglobin Sodium 135 L Potassium Chloride 91.9 L Carbon Dioxide BUN 54 H Creatinine 2.8 H Glucose 128 H POC Glucose 160 H 109 H Calcium 11.1 H Phosphorus ALT Alkaline Phosphatase 161 H Total Creatine Kinase CK-MB (CK-2) Rel Index Troponin T Albumin 2.3 L LDL Cholesterol Direct PTH Intact Salicylates Acetaminophen Crossmatch 03/15/19 03/15/19 03/16/19 18:15 23:41 05:40 WBC RBC Hgb Hct MCH MCHC RDW Lymph % (Auto) [place] % (Auto) Eos % (Auto) Lymph # [place] # Eos # Seg Neutrophils % Seg Neuts % (Manual) Lymphocytes % (Manual) Eosinophils % (Manual) Seg Neutrophils # Lymphocytes # (Manual) Eosinophils # (Manual) PT INR D-Dimer POC ABG pH POC ABG pCO2 POC ABG pO2 ABG pO2 ABG HCO3 ABG Base Excess ABG Hemoglobin Oxyhemoglobin Sodium Potassium Chloride Carbon Dioxide BUN Creatinine Glucose POC Glucose 151 H 110 H 163 H Calcium Phosphorus ALT Alkaline Phosphatase Total Creatine Kinase CK-MB (CK-2) Rel Index Troponin T Albumin LDL Cholesterol Direct PTH Intact Salicylates Acetaminophen Crossmatch 03/16/19 03/16/19 03/16/19 11:55 17:04 23:58 WBC RBC Hgb Hct MCH MCHC RDW Lymph % (Auto) [place] % (Auto) Eos % (Auto) Lymph # [place] # Eos # Seg Neutrophils % Seg Neuts % (Manual) Lymphocytes % (Manual) Eosinophils % (Manual) Seg Neutrophils # Lymphocytes # (Manual) Eosinophils # (Manual) PT INR D-Dimer POC ABG pH POC ABG pCO2 POC ABG pO2 ABG pO2 ABG HCO3 ABG Base Excess ABG Hemoglobin Oxyhemoglobin Sodium Potassium Chloride Carbon Dioxide BUN Creatinine Glucose POC Glucose 114 H 147 H 192 H Calcium Phosphorus ALT Alkaline Phosphatase Total Creatine Kinase CK-MB (CK-2) Rel Index Troponin T Albumin LDL Cholesterol Direct PTH Intact Salicylates Acetaminophen Crossmatch 03/17/19 03/17/19 03/17/19 05:53 11:17 17:01 WBC RBC Hgb Hct MCH MCHC RDW Lymph % (Auto) [place] % (Auto) Eos % (Auto) Lymph # [place] # Eos # Seg Neutrophils % Seg Neuts % (Manual) Lymphocytes % (Manual) Eosinophils % (Manual) Seg Neutrophils # Lymphocytes # (Manual) Eosinophils # (Manual) PT INR D-Dimer POC ABG pH POC ABG pCO2 POC ABG pO2 ABG pO2 ABG HCO3 ABG Base Excess ABG Hemoglobin Oxyhemoglobin Sodium Potassium Chloride Carbon Dioxide BUN Creatinine Glucose POC Glucose 151 H 161 H 152 H Calcium Phosphorus ALT Alkaline Phosphatase Total Creatine Kinase CK-MB (CK-2) Rel Index Troponin T Albumin LDL Cholesterol Direct PTH Intact Salicylates Acetaminophen Crossmatch 03/17/19 03/18/19 03/18/19 21:47 04:15 04:44 WBC RBC Hgb Hct MCH MCHC RDW Lymph % (Auto) [place] % (Auto) Eos % (Auto) Lymph # [place] # Eos # Seg Neutrophils % Seg Neuts % (Manual) Lymphocytes % (Manual) Eosinophils % (Manual) Seg Neutrophils # Lymphocytes # (Manual) Eosinophils # (Manual) PT INR D-Dimer POC ABG pH POC ABG pCO2 POC ABG pO2 ABG pO2 102.8 H ABG HCO3 28.3 H ABG Base Excess ABG Hemoglobin 10.4 L Oxyhemoglobin 94.5 L Sodium Potassium Chloride Carbon Dioxide BUN Creatinine Glucose POC Glucose 170 H 150 H Calcium Phosphorus ALT Alkaline Phosphatase Total Creatine Kinase CK-MB (CK-2) Rel Index Troponin T Albumin LDL Cholesterol Direct PTH Intact Salicylates Acetaminophen Crossmatch 03/18/19 03/18/19 03/18/19 06:38 12:12 17:47 WBC RBC Hgb Hct MCH MCHC RDW Lymph % (Auto) [place] % (Auto) Eos % (Auto) Lymph # [place] # Eos # Seg Neutrophils % Seg Neuts % (Manual) Lymphocytes % (Manual) Eosinophils % (Manual) Seg Neutrophils # Lymphocytes # (Manual) Eosinophils # (Manual) PT INR D-Dimer POC ABG pH 7.510 H POC ABG pCO2 POC ABG pO2 164 H ABG pO2 ABG HCO3 ABG Base Excess ABG Hemoglobin Oxyhemoglobin Sodium Potassium Chloride Carbon Dioxide BUN Creatinine Glucose POC Glucose 145 H 149 H Calcium Phosphorus ALT Alkaline Phosphatase Total Creatine Kinase CK-MB (CK-2) Rel Index Troponin T Albumin LDL Cholesterol Direct PTH Intact Salicylates Acetaminophen Crossmatch 03/18/19 03/19/19 03/19/19 23:25 01:11 04:23 WBC 15.6 H RBC 2.51 L Hgb 6.5 L Hct 21.6 L MCH 26 L MCHC 30 L RDW 19.8 H Lymph % (Auto) 6.0 L [place] % (Auto) Eos % (Auto) Lymph # 0.9 L [place] # 1.0 H Eos # Seg Neutrophils % 85.5 H Seg Neuts % (Manual) Lymphocytes % (Manual) Eosinophils % (Manual) Seg Neutrophils # 13.4 H Lymphocytes # (Manual) Eosinophils # (Manual) PT INR D-Dimer POC ABG pH POC ABG pCO2 POC ABG pO2 ABG pO2 78.3 L ABG HCO3 30.7 H ABG Base Excess 5.8 H ABG Hemoglobin 5.8 L Oxyhemoglobin 94.6 L Sodium Potassium Chloride Carbon Dioxide BUN Creatinine Glucose POC Glucose 190 H Calcium Phosphorus ALT Alkaline Phosphatase Total Creatine Kinase CK-MB (CK-2) Rel Index Troponin T Albumin LDL Cholesterol Direct PTH Intact Salicylates Acetaminophen Crossmatch 03/19/19 03/19/19 03/19/19 05:22 05:35 08:54 WBC RBC Hgb Hct MCH MCHC RDW Lymph % (Auto) [place] % (Auto) Eos % (Auto) Lymph # [place] # Eos # Seg Neutrophils % Seg Neuts % (Manual) Lymphocytes % (Manual) Eosinophils % (Manual) Seg Neutrophils # Lymphocytes # (Manual) Eosinophils # (Manual) PT INR D-Dimer POC ABG pH POC ABG pCO2 POC ABG pO2 ABG pO2 ABG HCO3 ABG Base Excess ABG Hemoglobin Oxyhemoglobin Sodium Potassium Chloride Carbon Dioxide BUN Creatinine Glucose POC Glucose 167 H Calcium Phosphorus ALT Alkaline Phosphatase Total Creatine Kinase CK-MB (CK-2) Rel Index Troponin T Albumin LDL Cholesterol Direct PTH Intact Salicylates Acetaminophen Crossmatch See Detail See Detail 03/19/19 03/19/19 03/19/19 12:36 17:02 23:25 WBC RBC Hgb Hct MCH MCHC RDW Lymph % (Auto) [place] % (Auto) Eos % (Auto) Lymph # [place] # Eos # Seg Neutrophils % Seg Neuts % (Manual) Lymphocytes % (Manual) Eosinophils % (Manual) Seg Neutrophils # Lymphocytes # (Manual) Eosinophils # (Manual) PT INR D-Dimer POC ABG pH POC ABG pCO2 POC ABG pO2 ABG pO2 ABG HCO3 ABG Base Excess ABG Hemoglobin Oxyhemoglobin Sodium Potassium Chloride Carbon Dioxide BUN Creatinine Glucose POC Glucose 167 H 135 H 136 H Calcium Phosphorus ALT Alkaline Phosphatase Total Creatine Kinase CK-MB (CK-2) Rel Index Troponin T Albumin LDL Cholesterol Direct PTH Intact Salicylates Acetaminophen Crossmatch 03/20/19 03/20/19 03/20/19 05:38 08:40 08:40 WBC RBC 2.61 L Hgb 7.1 L Hct 22.0 L MCH 27 L MCHC RDW 19.6 H Lymph % (Auto) 8.2 L [place] % (Auto) 8.3 H Eos % (Auto) 5.7 H Lymph # 0.8 L [place] # Eos # 0.5 H Seg Neutrophils % 77.3 H Seg Neuts % (Manual) Lymphocytes % (Manual) Eosinophils % (Manual) Seg Neutrophils # Lymphocytes # (Manual) Eosinophils # (Manual) PT INR D-Dimer POC ABG pH POC ABG pCO2 POC ABG pO2 ABG pO2 ABG HCO3 ABG Base Excess ABG Hemoglobin Oxyhemoglobin Sodium Potassium Chloride 95.9 L Carbon Dioxide BUN 69 H Creatinine 2.8 H Glucose 115 H POC Glucose 134 H Calcium 10.5 H Phosphorus ALT Alkaline Phosphatase Total Creatine Kinase CK-MB (CK-2) Rel Index Troponin T Albumin LDL Cholesterol Direct PTH Intact Salicylates Acetaminophen Crossmatch 03/20/19 03/20/19 03/20/19 12:13 18:04 23:49 WBC RBC Hgb Hct MCH MCHC RDW Lymph % (Auto) [place] % (Auto) Eos % (Auto) Lymph # [place] # Eos # Seg Neutrophils % Seg Neuts % (Manual) Lymphocytes % (Manual) Eosinophils % (Manual) Seg Neutrophils # Lymphocytes # (Manual) Eosinophils # (Manual) PT INR D-Dimer POC ABG pH POC ABG pCO2 POC ABG pO2 ABG pO2 ABG HCO3 ABG Base Excess ABG Hemoglobin Oxyhemoglobin Sodium Potassium Chloride Carbon Dioxide BUN Creatinine Glucose POC Glucose 144 H 165 H 172 H Calcium Phosphorus ALT Alkaline Phosphatase Total Creatine Kinase CK-MB (CK-2) Rel Index Troponin T Albumin LDL Cholesterol Direct PTH Intact Salicylates Acetaminophen Crossmatch 03/21/19 03/21/19 03/21/19 05:00 06:29 06:30 WBC RBC 2.72 L Hgb 7.4 L Hct 22.9 L MCH 27 L MCHC RDW 19.4 H Lymph % (Auto) [place] % (Auto) Eos % (Auto) Lymph # [place] # Eos # Seg Neutrophils % Seg Neuts % (Manual) 81.0 H Lymphocytes % (Manual) 8.0 L Eosinophils % (Manual) 8.0 H Seg Neutrophils # Lymphocytes # (Manual) 0.7 L Eosinophils # (Manual) 0.7 H PT INR D-Dimer POC ABG pH POC ABG pCO2 POC ABG pO2 ABG pO2 ABG HCO3 ABG Base Excess ABG Hemoglobin Oxyhemoglobin Sodium Potassium Chloride Carbon Dioxide 33 H BUN 43 H Creatinine 1.7 H Glucose 145 H POC Glucose 156 H Calcium Phosphorus ALT Alkaline Phosphatase 212 H Total Creatine Kinase CK-MB (CK-2) Rel Index Troponin T Albumin 2.2 L LDL Cholesterol Direct PTH Intact Salicylates Acetaminophen Crossmatch 03/21/19 03/21/19 03/22/19 12:02 18:07 00:21 WBC RBC Hgb Hct MCH MCHC RDW Lymph % (Auto) [place] % (Auto) Eos % (Auto) Lymph # [place] # Eos # Seg Neutrophils % Seg Neuts % (Manual) Lymphocytes % (Manual) Eosinophils % (Manual) Seg Neutrophils # Lymphocytes # (Manual) Eosinophils # (Manual) PT INR D-Dimer POC ABG pH POC ABG pCO2 POC ABG pO2 ABG pO2 ABG HCO3 ABG Base Excess ABG Hemoglobin Oxyhemoglobin Sodium Potassium Chloride Carbon Dioxide BUN Creatinine Glucose POC Glucose 163 H 144 H 153 H Calcium Phosphorus ALT Alkaline Phosphatase Total Creatine Kinase CK-MB (CK-2) Rel Index Troponin T Albumin LDL Cholesterol Direct PTH Intact Salicylates Acetaminophen Crossmatch 03/22/19 03/22/19 03/22/19 05:23 05:23 05:31 WBC RBC 2.58 L Hgb 7.1 L Hct 21.8 L MCH 27 L MCHC RDW 19.2 H Lymph % (Auto) [place] % (Auto) Eos % (Auto) Lymph # [place] # Eos # Seg Neutrophils % Seg Neuts % (Manual) Lymphocytes % (Manual) Eosinophils % (Manual) Seg Neutrophils # Lymphocytes # (Manual) Eosinophils # (Manual) PT INR D-Dimer POC ABG pH POC ABG pCO2 POC ABG pO2 ABG pO2 ABG HCO3 ABG Base Excess ABG Hemoglobin Oxyhemoglobin Sodium 147 H Potassium Chloride Carbon Dioxide BUN 68 H Creatinine 2.5 H Glucose POC Glucose 116 H Calcium 10.3 H Phosphorus ALT Alkaline Phosphatase Total Creatine Kinase CK-MB (CK-2) Rel Index Troponin T Albumin LDL Cholesterol Direct PTH Intact Salicylates Acetaminophen Crossmatch
--- NOTE | 2019-03-22 15:45 | Progress Note ---
Assessment and Plan Blood cultures 12/26/2018 no growth today. Blood cultures 01/01/2019 no growth today. Wound cultures 01/02/2019 ESBL Kleb, MDR Ecoli and E raffinosus resistant to penicillin. 03/14 Sputum Cx: MDR Acinetobacter 03/14 BCx: NGTD 03/17 Sputum CX: MDR Acinetobacter Assessment: 63 y/o male with history of ESRD on HD, HTN, CAD S/P CABG, CVA, DM, Atrial Fib, Anemia, Hyperparathyroidism, Hypocalcemia, schizophrenia; well known to ID service from previous admissions, most recently on 12/26/2018 due to sepsis from unstagable necrotic sacral decubitus s/p OR on 01/01/2019 for open excisional debridement of necrotic sacral wound with ESBL Kleb, MDR Ecoli, treated with Meropenem 1 gm IV every 24 hours via tunneled catheter and Vancomycin 1 gm post HD Saturday, and Saturday for 6 weeks ending 02-16-19; readmitted: 1. Sepsis: secondary to MDR Acinetobacter pneumonia - Cultures with multidrug resistant Acinetobacter baumannii. Sensitive to Bactrim. Normally would consider a contaminant, however given his symptoms will treat. He is poor prognosis, as such will avoid aminoglycosides as long as possible. Will treat with Bactrim ESRD dosing. Discussed with pharmacy. If he fails this would need to consider aminoglycoside or Poly B/Minocycline. 2. Hypoxic respiratory failure - 2/2 fluid overload. Improving 3. DM2 4. Left 5th finger pressure ulcer: not infected 5. Sacral stage IV ulcer s/p extensive treatment - NOT infected currently; treated with Meropenem 1 gm IV every 24 hours via tunneled catheter and Vancomycin 1 gm post HD Saturday, and Saturday for 6 weeks ending 02-16-19 6. ESRD on HD Recommendations: - continue Bactrim ESRD dosing per pharmacy D4 of 10 - follow up blood cultures - contact precautions - consider hospice, he will continue to develop worsening resistance and we will exhaust all therapeutic options for Acinetobacter very quicky. will follow Bre Machuca MD [facility] [employer] [facility] [phone] O [phone] Subjective Date of service: 03/22/19 Principal diagnosis: respiratory failure Interval history: Remains afebrile, more somnolent. Objective - Exam Narrative Exam: General appearance: somnolent in NAD Eyes: anicteric sclerae, moist conjunctivae; no lid-lag; PERRLA HENT: Atraumatic; oropharynx edentulous Neck: trach clear Lungs: CTA CV: RRR no murmur Abdomen: Soft, non-tender; +PEG Extremities: no edema, no cyanosis Skin: sacral stage IV pressure ulcer; 17cm x 10cm x 6.2cm, with undermining 4cm at 1 O'clock per wound care consult assessment - clean Psych: no agitated Left SC TLC - Constitutional Vitals: Vital Signs Temp Pulse Resp BP Pulse Ox 98.4 F 108 H 32 H 144/82 100 03/22/19 12:00 03/22/19 15:01 03/22/19 15:01 03/22/19 15:01 03/22/19 15:01 Temperature -Last 24 Hours Temperature 98.4 F Temperature 98.6 F Temperature 98.8 F Temperature 99.1 F Temperature 98.9 F Temperature 98.8 F - Labs CBC & Chem 7: 03/22/19 05:23 03/22/19 05:23 Labs: Abnormal lab results 03/21/19 03/22/19 03/22/19 Range/Units 18:07 00:21 05:23 RBC 2.58 L (3.65-5.03) M/mm3 Hgb 7.1 L (11.8-15.2) gm/dl Hct 21.8 L (35.5-45.6) % MCH 27 L (28-32) pg RDW 19.2 H (13.2-15.2) % Sodium (137-145) mmol/L BUN (9-20) mg/dL Creatinine (0.8-1.5) mg/dL POC Glucose 144 H 153 H (70-105) Calcium (8.4-10.2) mg/dL 03/22/19 03/22/19 Range/Units 05:23 05:31 RBC (3.65-5.03) M/mm3 Hgb (11.8-15.2) gm/dl Hct (35.5-45.6) % MCH (28-32) pg RDW (13.2-15.2) % Sodium 147 H (137-145) mmol/L BUN 68 H (9-20) mg/dL Creatinine 2.5 H (0.8-1.5) mg/dL POC Glucose 116 H (70-105) Calcium 10.3 H (8.4-10.2) mg/dL
--- NOTE | 2019-03-22 16:23 | Progress Note ---
Assessment and Plan - Patient Problems (1) ESRD (end stage renal disease) on dialysis Current Visit: Yes Status: Chronic (2) Diabetes mellitus, insulin dependent (IDDM), uncontrolled Current Visit: No Status: Acute (3) Anemia in chronic kidney disease, on chronic dialysis Current Visit: Yes Status: Acute (4) Hypertension Current Visit: Yes Status: Acute (5) Acute hypoxemic respiratory failure Current Visit: Yes Status: Acute Subjective Principal diagnosis: respiratory failure Interval history: 63-year-old gentleman with medical history significant for end-stage renal disease on hemodialysis via a left arm AV graft is currently in the [facility] for plan for dialysis today Patient is poorly responsive review of systems unobtainable tracheal stain with gram positive rods. now with trache on trach collar No fever though this time Objective - Vital Signs Vital signs: Vital Signs - 12hr 03/22/19 03/22/19 03/22/19 04:25 05:01 06:00 Temperature Pulse Rate 109 H 106 H Pulse Rate [ Anterior Bilateral Throughout] Pulse Rate [ From Monitor] Pulse Rate [ Throughout] Respiratory 25 H 25 H Rate Respiratory Rate [Anterior Bilateral Throughout] Respiratory Rate [ Throughout] Blood Pressure 132/60 126/72 O2 Sat by Pulse 98 97 Oximetry O2 Sat by Pulse 99 Oximetry [ Assessment] 03/22/19 03/22/19 03/22/19 07:00 07:28 07:31 Temperature 98.6 F Pulse Rate 100 H Pulse Rate [ Anterior Bilateral Throughout] Pulse Rate [ 110 H From Monitor] Pulse Rate [ Throughout] Respiratory 25 H 27 H Rate Respiratory Rate [Anterior Bilateral Throughout] Respiratory Rate [ Throughout] Blood Pressure 126/72 O2 Sat by Pulse 99 99 Oximetry O2 Sat by Pulse Oximetry [ Assessment] 03/22/19 03/22/19 03/22/19 08:00 08:01 08:10 Temperature Pulse Rate 120 H 92 H Pulse Rate [ 116 H Anterior Bilateral Throughout] Pulse Rate [ From Monitor] Pulse Rate [ 112 H Throughout] Respiratory 29 H Rate Respiratory 29 H Rate [Anterior Bilateral Throughout] Respiratory 21 Rate [ Throughout] Blood Pressure 119/69 O2 Sat by Pulse 88 Oximetry O2 Sat by Pulse Oximetry [ Assessment] 03/22/19 03/22/19 03/22/19 08:11 09:00 10:01 Temperature Pulse Rate 112 H 115 H Pulse Rate [ Anterior Bilateral Throughout] Pulse Rate [ From Monitor] Pulse Rate [ Throughout] Respiratory 32 H 26 H Rate Respiratory Rate [Anterior Bilateral Throughout] Respiratory Rate [ Throughout] Blood Pressure 128/71 128/71 O2 Sat by Pulse 95 95 97 Oximetry O2 Sat by Pulse Oximetry [ Assessment] 03/22/19 03/22/19 03/22/19 11:01 12:00 13:00 Temperature 98.4 F Pulse Rate 113 H 118 H 107 H Pulse Rate [ Anterior Bilateral Throughout] Pulse Rate [ 110 H From Monitor] Pulse Rate [ Throughout] Respiratory 27 H 32 H 32 H Rate Respiratory Rate [Anterior Bilateral Throughout] Respiratory Rate [ Throughout] Blood Pressure 138/71 145/70 129/73 O2 Sat by Pulse 99 98 99 Oximetry O2 Sat by Pulse Oximetry [ Assessment] 03/22/19 03/22/19 03/22/19 14:01 14:50 15:01 Temperature Pulse Rate 106 H 108 H Pulse Rate [ Anterior Bilateral Throughout] Pulse Rate [ From Monitor] Pulse Rate [ Throughout] Respiratory 23 32 H Rate Respiratory Rate [Anterior Bilateral Throughout] Respiratory Rate [ Throughout] Blood Pressure 134/72 144/82 O2 Sat by Pulse 99 100 Oximetry O2 Sat by Pulse 100 Oximetry [ Assessment] 03/22/19 16:00 Temperature 98.8 F Pulse Rate 117 H Pulse Rate [ Anterior Bilateral Throughout] Pulse Rate [ From Monitor] Pulse Rate [ Throughout] Respiratory 29 H Rate Respiratory Rate [Anterior Bilateral Throughout] Respiratory Rate [ Throughout] Blood Pressure 137/79 O2 Sat by Pulse 99 Oximetry O2 Sat by Pulse Oximetry [ Assessment] - General Appearance General appearance: well-developed, well-nourished EENT: ATNC, PERRL, mucous membranes moist Neck: no JVD Respiratory: Present: Clear to Ascultation Cardiology: regular, S1S2 Gastrointestinal: normal, normoactive bowel sounds Integumentary: no rash Neurologic: no focal deficit, CN 3-12 intact Psychiatric: mood/affect appropriate - Lab 03/22/19 05:23 03/22/19 05:23 Most recent lab results ABG pH 7.424 pH Units (7.350-7.450) 03/19/19 04:23 ABG pCO2 48.0 mm Hg 03/19/19 04:23 ABG pO2 78.3 mm Hg (80.0-90.0) L 03/19/19 04:23 ABG HCO3 30.7 mmol/L (20.0-26.0) H 03/19/19 04:23 ABG O2 Saturation 97.0 % (95.0-99.0) 03/19/19 04:23 Calcium 10.3 mg/dL (8.4-10.2) H 03/22/19 05:23 Phosphorus 3.10 mg/dL (2.5-4.5) 03/15/19 04:38 Magnesium 2.00 mg/dL (1.7-2.3) 03/21/19 05:00 Medications & Allergies - Medications Allergies/Adverse Reactions: Allergies haloperidol [From Haldol] Adverse Reaction (Verified 03/13/18 12:10) Unknown haloperidol lactate [From Haldol] Adverse Reaction (Verified 03/13/18 12:10) Unknown Home Medications: Home Medications Medication Instructions Recorded Confirmed Last Taken Type risperiDONE [RisperDAL] 1 mg PO QAM 03/13/18 02/21/19 Unknown History Sertraline [Zoloft] 100 mg PO QDAY 08/26/18 02/21/19 Unknown History Polyethylene Glycol 3350 [Miralax 17 gm PO QDAY #30 packet 11/05/18 02/21/19 Unknown Rx 3350] Aspirin EC [Halfprin EC] 81 mg PO DAILY #30 11/19/18 02/21/19 Unknown Rx Docusate Sodium [Colace CAP] 100 mg PO BID #60 11/19/18 02/21/19 Unknown Rx Folic Acid [Folvite] 1 mg PO DAILY #30 tab 11/19/18 02/21/19 Unknown Rx Famotidine [Pepcid] 20 mg PO DAILY tablet 12/08/18 02/21/19 Unknown Rx Gabapentin [Neurontin] 100 mg PO QHS capsule 12/08/18 02/21/19 Unknown Rx Metoprolol [Lopressor TAB] 50 mg PO BID 30 Days tablet 12/08/18 02/21/19 Unknown Rx Sevelamer Carbonate [Renvela] 800 mg PO TIDWM tablet 12/08/18 02/21/19 Unknown Rx hydrALAZINE [Apresoline TAB] 100 mg PO Q8HR #120 tablet 12/08/18 02/21/19 Unknown Rx Acetaminophen [Acetaminophen TAB] 650 mg PO Q12H PRN 12/15/18 02/21/19 Unknown History Glucagon,Human Recombinant 1 mg IJ Q15MIN PRN 12/15/18 02/21/19 Unknown History [Glucagon Emergency Kit] Insulin Aspart [NovoLOG 100 See Protocol SQ QWEEK 12/15/18 02/21/19 Unknown History UNITS/ML VIAL] Active Medications: Generic Name Dose Route Start Last Admin Trade Name Freq PRN Reason Stop Dose Admin Acetaminophen 650 mg 02/21/19 22:19 03/18/19 04:53 Tylenol PO 650 mg Q4H PRN Administration Pain MILD(1-3)/Fever >100.5/HILL Albuterol/Ipratropium 1 ampul 02/24/19 20:00 03/22/19 14:50 Duoneb *Not For Prn Use* IH 1 ampul TIDRT SANCHEZ Administration Lipase/Protease/Amylase 1 each 03/05/19 14:04 Pancreaze 10,500 Unit FEEDTUBE PRN PRN For Clogged Feeding Tube Dextrose 50 ml 02/21/19 22:22 03/03/19 17:37 D50w (25gm) Syringe IV 50 ml PRN PRN Administration Hypoglycemia Epoetin Solitairo 10,000 unit 03/18/19 16:13 03/20/19 18:00 Procrit SUB-Q 10,000 unit UMA PRN Administration anemia Famotidine 20 mg 02/23/19 10:00 03/22/19 09:10 Pepcid PO 20 mg DAILY SANCHEZ Administration Heparin Sodium (Porcine) 5,000 unit 03/04/19 22:00 03/22/19 09:09 Heparin SUB-Q 5,000 unit Q12HR SANCHEZ Administration Hydrophilic Ointment 1 applic 02/21/19 18:24 03/05/19 08:16 Vaseline Lip Therapy TP 1 applic Q2HR PRN Administration Dry Lips Sodium Chloride 100 mls @ 999 mls/hr 02/26/19 09:00 Nacl 0.9% IV UMA PRN Hypotension Norepinephrine 8 mg/ Sodium 250 mls @ 3.75 mls/hr 03/18/19 13:00 03/19/19 09:17 Chloride IV 0 mcg/min TITR SANCHEZ 0 mls/hr Titration Protocol 2 MCG/MIN Insulin Human Regular 0 units 02/26/19 12:00 03/22/19 12:31 Humulin R SUB-Q Not Given Q6HR [facility] Protocol Metoprolol Tartrate 2.5 mg 02/28/19 12:06 03/15/19 05:15 Lopressor IV 2.5 mg Q4HR PRN Administration Tachycardia Multi-Ingred Cream/Lotion/Oil/Oint 1 applic 02/21/19 18:24 Artificial Tears Ophth Oint OU Q4HR PRN Dry Eye(s) Ondansetron HCl 4 mg 02/21/19 22:19 03/12/19 21:39 Zofran IV 4 mg Q8H PRN Administration Nausea And Vomiting Risperidone 1 mg 02/25/19 13:00 03/22/19 09:10 Risperdal PO 1 mg DAILY SANCHEZ Administration Scopolamine 1 each 03/13/19 04:00 03/22/19 03:56 Transderm-Scop TD 1 each Q3D SANCHEZ Administration Sertraline HCl 100 mg 02/25/19 13:00 03/22/19 09:10 Zoloft PO 100 mg DAILY SANCHEZ Administration Simple Syrup 15 ml 03/05/19 14:04 Simple Syrup FEEDTUBE PRN PRN Hypoglycemia Simple Syrup 30 ml 03/05/19 14:04 Simple Syrup FEEDTUBE PRN PRN Hypoglycemia Sodium Bicarbonate 325 mg 03/05/19 14:04 Sodium Bicarbonate FEEDTUBE PRN PRN For Clogged Feeding Tube Sodium Chloride 10 ml 02/22/19 10:00 03/21/19 22:26 Sodium Chloride Flush Syringe 10 Ml IV 10 ml BID SANCHEZ Administration Sodium Chloride 10 ml 02/21/19 22:19 02/24/19 22:00 Sodium Chloride Flush Syringe 10 Ml IV 10 ml PRN PRN Administration LINE FLUSH Tramadol HCl 50 mg 03/05/19 10:08 03/18/19 04:38 Ultram PO 50 mg Q6H PRN Administration Pain, Moderate (4-6) Trimethoprim/Sulfamethoxazole 160 mg 03/19/19 15:00 03/22/19 09:10 Bactrim 200-40 Mg/5 Ml PO 160 mg Q24HR SANCHEZ Administration
--- NOTE | 2019-03-22 16:30 | Progress Note ---
Assessment and Plan - Patient Problems (1) ESRD (end stage renal disease) on dialysis Current Visit: Yes Status: Chronic Plan to address problem: End stage renal disease : - access: Left arm AVG Continue hemodialysis Saturday (2) Diabetes mellitus, insulin dependent (IDDM), uncontrolled Current Visit: No Status: Acute Plan to address problem: DM type II uncontrolled Monitor Fingersticks (3) Anemia in chronic kidney disease, on chronic dialysis Current Visit: Yes Status: Acute Plan to address problem: Anemia of chronic kidney disease hemoglobin 8.2 -6.5--7.1 g/dl We'll give Epogen Received PrBc transfusion Monitor CBC (4) Hypertension Current Visit: Yes Status: Acute Plan to address problem: Hypertension controlled Ensure medications Monitor blood pressure (5) Acute hypoxemic respiratory failure Current Visit: Yes Status: Acute Plan to address problem: Patient remains on trach collar Chest x-ray reviewed with patchy opacities upper lung lynn Cultures obtained with Acinetobacter Ultrafiltration limited by hypotension Subjective Principal diagnosis: respiratory failure Interval history: 63-year-old gentleman with medical history significant for end-stage renal disease on hemodialysis via a left arm AV graft is currently in the [facility] for plan for dialysis today Patient is poorly responsive review of systems unobtainable tracheal stain with gram positive rods. now with trache on trach collar No fever though this time Patient off IVF. Objective - Vital Signs Vital signs: Vital Signs - 12hr 03/22/19 03/22/19 03/22/19 05:01 06:00 07:00 Temperature Pulse Rate 109 H 106 H 100 H Pulse Rate [ Anterior Bilateral Throughout] Pulse Rate [ From Monitor] Pulse Rate [ Throughout] Respiratory 25 H 25 H 25 H Rate Respiratory Rate [Anterior Bilateral Throughout] Respiratory Rate [ Throughout] Blood Pressure 132/60 126/72 126/72 O2 Sat by Pulse 98 97 99 Oximetry O2 Sat by Pulse Oximetry [ Assessment] 03/22/19 03/22/19 03/22/19 07:28 07:31 08:00 Temperature 98.6 F Pulse Rate Pulse Rate [ 116 H Anterior Bilateral Throughout] Pulse Rate [ 110 H From Monitor] Pulse Rate [ 112 H Throughout] Respiratory 27 H Rate Respiratory 29 H Rate [Anterior Bilateral Throughout] Respiratory 21 Rate [ Throughout] Blood Pressure O2 Sat by Pulse 99 Oximetry O2 Sat by Pulse Oximetry [ Assessment] 03/22/19 03/22/19 03/22/19 08:01 08:10 08:11 Temperature Pulse Rate 120 H 92 H Pulse Rate [ Anterior Bilateral Throughout] Pulse Rate [ From Monitor] Pulse Rate [ Throughout] Respiratory 29 H Rate Respiratory Rate [Anterior Bilateral Throughout] Respiratory Rate [ Throughout] Blood Pressure 119/69 O2 Sat by Pulse 88 95 Oximetry O2 Sat by Pulse Oximetry [ Assessment] 03/22/19 03/22/19 03/22/19 09:00 10:01 11:01 Temperature Pulse Rate 112 H 115 H 113 H Pulse Rate [ Anterior Bilateral Throughout] Pulse Rate [ From Monitor] Pulse Rate [ Throughout] Respiratory 32 H 26 H 27 H Rate Respiratory Rate [Anterior Bilateral Throughout] Respiratory Rate [ Throughout] Blood Pressure 128/71 128/71 138/71 O2 Sat by Pulse 95 97 99 Oximetry O2 Sat by Pulse Oximetry [ Assessment] 03/22/19 03/22/19 03/22/19 12:00 13:00 14:01 Temperature 98.4 F Pulse Rate 118 H 107 H 106 H Pulse Rate [ Anterior Bilateral Throughout] Pulse Rate [ 110 H From Monitor] Pulse Rate [ Throughout] Respiratory 32 H 32 H 23 Rate Respiratory Rate [Anterior Bilateral Throughout] Respiratory Rate [ Throughout] Blood Pressure 145/70 129/73 134/72 O2 Sat by Pulse 98 99 99 Oximetry O2 Sat by Pulse Oximetry [ Assessment] 03/22/19 03/22/19 03/22/19 14:50 15:01 16:00 Temperature 98.8 F Pulse Rate 108 H 117 H Pulse Rate [ Anterior Bilateral Throughout] Pulse Rate [ 110 H From Monitor] Pulse Rate [ Throughout] Respiratory 32 H 29 H Rate Respiratory Rate [Anterior Bilateral Throughout] Respiratory Rate [ Throughout] Blood Pressure 144/82 137/79 O2 Sat by Pulse 100 99 Oximetry O2 Sat by Pulse 100 Oximetry [ Assessment] - General Appearance General appearance: well-developed, well-nourished EENT: ATNC, PERRL, mucous membranes moist Neck: no JVD Respiratory: Present: Clear to Ascultation Cardiology: regular, S1S2 Gastrointestinal: normal, normoactive bowel sounds Integumentary: no rash Neurologic: no focal deficit, CN 3-12 intact Musculoskeletal: deferred Psychiatric: mood/affect appropriate - Lab 03/22/19 05:23 03/22/19 05:23 Most recent lab results ABG pH 7.424 pH Units (7.350-7.450) 03/19/19 04:23 ABG pCO2 48.0 mm Hg 03/19/19 04:23 ABG pO2 78.3 mm Hg (80.0-90.0) L 03/19/19 04:23 ABG HCO3 30.7 mmol/L (20.0-26.0) H 03/19/19 04:23 ABG O2 Saturation 97.0 % (95.0-99.0) 03/19/19 04:23 Calcium 10.3 mg/dL (8.4-10.2) H 03/22/19 05:23 Phosphorus 3.10 mg/dL (2.5-4.5) 03/15/19 04:38 Magnesium 2.00 mg/dL (1.7-2.3) 03/21/19 05:00 - Imaging Chest x-ray: image reviewed (I reviewed CXR with patchy opacities. ) Medications & Allergies - Medications Allergies/Adverse Reactions: Allergies haloperidol [From Haldol] Adverse Reaction (Verified 03/13/18 12:10) Unknown haloperidol lactate [From Haldol] Adverse Reaction (Verified 03/13/18 12:10) Unknown Home Medications: Home Medications Medication Instructions Recorded Confirmed Last Taken Type risperiDONE [RisperDAL] 1 mg PO QAM 03/13/18 02/21/19 Unknown History Sertraline [Zoloft] 100 mg PO QDAY 08/26/18 02/21/19 Unknown History Polyethylene Glycol 3350 [Miralax 17 gm PO QDAY #30 packet 11/05/18 02/21/19 Unknown Rx 3350] Aspirin EC [Halfprin EC] 81 mg PO DAILY #30 11/19/18 02/21/19 Unknown Rx Docusate Sodium [Colace CAP] 100 mg PO BID #60 11/19/18 02/21/19 Unknown Rx Folic Acid [Folvite] 1 mg PO DAILY #30 tab 11/19/18 02/21/19 Unknown Rx Famotidine [Pepcid] 20 mg PO DAILY tablet 12/08/18 02/21/19 Unknown Rx Gabapentin [Neurontin] 100 mg PO QHS capsule 12/08/18 02/21/19 Unknown Rx Metoprolol [Lopressor TAB] 50 mg PO BID 30 Days tablet 12/08/18 02/21/19 Unknown Rx Sevelamer Carbonate [Renvela] 800 mg PO TIDWM tablet 12/08/18 02/21/19 Unknown Rx hydrALAZINE [Apresoline TAB] 100 mg PO Q8HR #120 tablet 12/08/18 02/21/19 Unknown Rx Acetaminophen [Acetaminophen TAB] 650 mg PO Q12H PRN 12/15/18 02/21/19 Unknown History Glucagon,Human Recombinant 1 mg IJ Q15MIN PRN 12/15/18 02/21/19 Unknown History [Glucagon Emergency Kit] Insulin Aspart [NovoLOG 100 See Protocol SQ QWEEK 12/15/18 02/21/19 Unknown History UNITS/ML VIAL] Active Medications: Generic Name Dose Route Start Last Admin Trade Name Freq PRN Reason Stop Dose Admin Acetaminophen 650 mg 02/21/19 22:19 03/18/19 04:53 Tylenol PO 650 mg Q4H PRN Administration Pain MILD(1-3)/Fever >100.5/HILL Albuterol/Ipratropium 1 ampul 02/24/19 20:00 03/22/19 14:50 Duoneb *Not For Prn Use* IH 1 ampul TIDRT SANCHEZ Administration Lipase/Protease/Amylase 1 each 03/05/19 14:04 Pancreaze 10,500 Unit FEEDTUBE PRN PRN For Clogged Feeding Tube Dextrose 50 ml 02/21/19 22:22 03/03/19 17:37 D50w (25gm) Syringe IV 50 ml PRN PRN Administration Hypoglycemia Epoetin Solitario 10,000 unit 03/18/19 16:13 03/20/19 18:00 Procrit SUB-Q 10,000 unit UMA PRN Administration anemia Famotidine 20 mg 02/23/19 10:00 03/22/19 09:10 Pepcid PO 20 mg DAILY SANCHEZ Administration Heparin Sodium (Porcine) 5,000 unit 03/04/19 22:00 03/22/19 09:09 Heparin SUB-Q 5,000 unit Q12HR SANCHEZ Administration Hydrophilic Ointment 1 applic 02/21/19 18:24 03/05/19 08:16 Vaseline Lip Therapy TP 1 applic Q2HR PRN Administration Dry Lips Sodium Chloride 100 mls @ 999 mls/hr 02/26/19 09:00 Nacl 0.9% IV UMA PRN Hypotension Norepinephrine 8 mg/ Sodium 250 mls @ 3.75 mls/hr 03/18/19 13:00 03/19/19 09:17 Chloride IV 0 mcg/min TITR SANCHEZ 0 mls/hr Titration Protocol 2 MCG/MIN Insulin Human Regular 0 units 02/26/19 12:00 03/22/19 12:31 Humulin R SUB-Q Not Given Q6HR SANCHEZ Protocol Metoprolol Tartrate 2.5 mg 02/28/19 12:06 03/15/19 05:15 Lopressor IV 2.5 mg Q4HR PRN Administration Tachycardia Multi-Ingred Cream/Lotion/Oil/Oint 1 applic 02/21/19 18:24 Artificial Tears Ophth Oint OU Q4HR PRN Dry Eye(s) Ondansetron HCl 4 mg 02/21/19 22:19 03/12/19 21:39 Zofran IV 4 mg Q8H PRN Administration Nausea And Vomiting Risperidone 1 mg 02/25/19 13:00 03/22/19 09:10 Risperdal PO 1 mg DAILY SANCHEZ Administration Scopolamine 1 each 03/13/19 04:00 03/22/19 03:56 Transderm-Scop TD 1 each Q3D SANCHEZ Administration Sertraline HCl 100 mg 02/25/19 13:00 03/22/19 09:10 Zoloft PO 100 mg DAILY SANCHEZ Administration Simple Syrup 15 ml 03/05/19 14:04 Simple Syrup FEEDTUBE PRN PRN Hypoglycemia Simple Syrup 30 ml 03/05/19 14:04 Simple Syrup FEEDTUBE PRN PRN Hypoglycemia Sodium Bicarbonate 325 mg 03/05/19 14:04 Sodium Bicarbonate FEEDTUBE PRN PRN For Clogged Feeding Tube Sodium Chloride 10 ml 02/22/19 10:00 03/21/19 22:26 Sodium Chloride Flush Syringe 10 Ml IV 10 ml BID SANCHEZ Administration Sodium Chloride 10 ml 02/21/19 22:19 02/24/19 22:00 Sodium Chloride Flush Syringe 10 Ml IV 10 ml PRN PRN Administration LINE FLUSH Tramadol HCl 50 mg 03/05/19 10:08 03/18/19 04:38 Ultram PO 50 mg Q6H PRN Administration Pain, Moderate (4-6) Trimethoprim/Sulfamethoxazole 160 mg 03/19/19 15:00 03/22/19 09:10 Bactrim 200-40 Mg/5 Ml PO 160 mg Q24HR SANCHEZ Administration
[2019-03-23] MEDS: INSULIN REGULAR, HUMAN 100 UNITS/1 ML SUB-Q SCH ×4 (00:12→20:26)
--- NOTE | 2019-03-23 03:23 | XRay Report ---
CHEST 1 VIEW 03/23/2019 2:20 AM INDICATION / CLINICAL INFORMATION: follow up respiratory failure. COMPARISON: Chest x-ray 03/22/2019 FINDINGS: SUPPORT DEVICES: Tracheostomy tube and left internal jugular CVL again project in expected position. Leadless cardiac pacemaker is again noted. HEART / MEDIASTINUM: Moderate cardiomegaly, unchanged LUNGS / PLEURA: Tiny bilateral pleural effusions, moderate interstitial edema and airspace consolidat ion within the left upper lobe, unchanged. No pneumothorax. ADDITIONAL FINDINGS: No significant additional findings. IMPRESSION: 1. Probable pulmonary edema with superimposed left upper lobe pneumonia, unchanged Signer Name: Carlos Hanley MD Signed: 03/23/2019 3:19 AM Workstation Name: [id number]
[2019-03-23 04:19] LABS: Hemoglobin 6.4 gm/dl (11.8-15.2); Mean Corpuscular HGB Conc 33 % (32-34); Mean Corpuscular Volume 85 fl (84-94); Platelet Count 357 K/mm3 (140-440); Red Blood Count 2.32 M/mm3 (3.65-5.03); Red Cell Distribution Width 19.4 % (13.2-15.2)
[2019-03-23 04:21] LABS: Hematocrit 19.7 % (35.5-45.6)
[2019-03-23] MEDS ORDERED: SODIUM CHLORIDE 0.9% 500 ML 500 ML IV ONE (04:24)
--- NOTE | 2019-03-23 04:26 | Event Note ---
Date: 03/23/19 Hgb 6.4 this am. Will order 1 unit PRBC.
[2019-03-23 04:34] LABS: Calcium 10.3 mg/dL (8.4-10.2)
--- NOTE | 2019-03-23 08:13 | Progress Note ---
Assessment and Plan Assessment and plan: Patient is 63-year-old -[place] male patient from [facility] with multiple co-morbidities including blindness, CVA, CHF, PPM/ICD, loop recorder since 2012 that is MRI compatible, IDDM type 2, sepsis left foot ulcer, afib, ESRD with complications on HD TTS, hypertension, AOCD and GERD who presented to the ED with hypotensive after intubation in the emergency room. diagnosed with fluid overload, pleural effusion. Patient has had recurrent admission in the hospital for similar reason and was recently discharged from the hospital following treatment of Severe Sepsis due to Necrotizing Unstagable sacral decubitus ulcer with ostemomylitis, has received multiple courses of broad spectrum abx. Acute hypoxic respiratory failure, status post intubation and ventilatory support, now off vent, on T-piece Acute respiratory failure on mechanical ventilator >96 hrs Extubated ; history of tracheostomy on T piece Current management , nebulizers, Currently on trach/peg placed on 03/03. Now off vent, cont oxygen supplement, improving, on t piece, nebulizers, pulmonary critical following acute on chronc systolic CHF/ Acute pulmonary edema, HD per schedule Dilated CMP, EF 35-40% Continue diuresis, supportive care Acute metabolic encephalopathy, resolved, has baseline Dementia. --ESRD on hemodialysis per schedule nephrology following --Bilateral pleural effusions improved with HD --Permanent atrial fibrillation and flutter and hypercoaguable state Not on anticoagulation because of anemia thrombocytopenia rate control meds optimizeds --Diabetes mellitus type 2 Accu-Chek sliding scale coverage Insulin as needed --NSTEMI type 2 , Cardiology following --Schizophrenia:stable --Legally blind, supportive care --hypertension, Monitor BP,'s adjust medications as needed --Hypokalemia; corrected --Pulmonary hypertension; continue current management --Dysphagia s/p PEG tube; PEG tubes per protocol --Sacral decub ulcer; Wound care --Severe malnutrition /hypoalbuminemia with FTT: 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, 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 inpatient hospice was recommended, but family is not agreeable at this time. family meeting and ethic consult has needed The high probability of a clinically significant, sudden or life threatening deterioration of the [pulmonary, neuro, renal] system(s) required my full and direct attention, intervention and personal management. The aggregate critical care time was [33] minutes. This time is in addition to time spent performing reported procedures but includes the following: [x] Data Review and interpretation [x] Patient assessment and monitoring of vital signs [] Documentation [x] Medication orders and management History Interval history: Was on vent, now off vent On T - piece Hospitalist Physical - Physical exam Narrative exam: Gen: Not in acute distress, lying in bed, on T-PIECE HEENT: Normocephalic, atraumatic Neck: supple, no JVD, TRACHEOSTOMY Heart: S1 and S2 irreg, no murmurs, rubs or gallop Lungs: DEcreased breath sounds, bilat, no crackles, Abd: soft, non tender, non distended, normal BS, PEG tube Ext: No edema, no clubbing, no cyanosis, Neuro: Says few words, moves all ext Sacral wound - Constitutional Vitals: Temp Pulse Resp BP Pulse Ox 97.8 F 106 H 28 H 128/71 98 03/23/19 08:00 03/23/19 08:10 03/23/19 08:01 03/23/19 08:01 03/23/19 08:01 General appearance: Present: no acute distress, well-nourished, other (tracheostomy on T piece) Results - Labs CBC & Chem 7: 03/23/19 04:00 03/23/19 04:00 Labs: Laboratory Last Values WBC 11.2 K/mm3 (4.5-11.0) H 03/23/19 04:00 RBC 2.32 M/mm3 (3.65-5.03) L 03/23/19 04:00 Hgb 6.4 gm/dl (11.8-15.2) L 03/23/19 04:00 Hct 19.7 % (35.5-45.6) L* 03/23/19 04:00 MCV 85 fl (84-94) 03/23/19 04:00 MCH 28 pg (28-32) 03/23/19 04:00 MCHC 33 % (32-34) 03/23/19 04:00 RDW 19.4 % (13.2-15.2) H 03/23/19 04:00 Plt Count 357 K/mm3 (140-440) 03/23/19 04:00 Lymph % (Auto) 8.2 % (13.4-35.0) L 03/20/19 08:40 Rooks % (Auto) 8.3 % (0.0-7.3) H 03/20/19 08:40 Eos % (Auto) 5.7 % (0.0-4.3) H 03/20/19 08:40 Baso % (Auto) 0.5 % (0.0-1.8) 03/20/19 08:40 Lymph # 0.8 K/mm3 (1.2-5.4) L 03/20/19 08:40 Rooks # 0.8 K/mm3 (0.0-0.8) 03/20/19 08:40 Eos # 0.5 K/mm3 (0.0-0.4) H 03/20/19 08:40 Baso # 0.0 K/mm3 (0.0-0.1) 03/20/19 08:40 Add Manual Diff Complete 03/21/19 06:30 Total Counted 100 03/21/19 06:30 Seg Neutrophils % 77.3 % (40.0-70.0) H 03/20/19 08:40 Seg Neuts % (Manual) 81.0 % (40.0-70.0) H 03/21/19 06:30 0 % 03/21/19 06:30 8.0 % (13.4-35.0) L 03/21/19 06:30 Reactive Lymphs % (Man) 0 % 03/21/19 06:30 1.0 % (0.0-7.3) 03/21/19 06:30 8.0 % (0.0-4.3) H 03/21/19 06:30 1.0 % (0.0-1.8) 03/21/19 06:30 1.0 % 03/21/19 06:30 0 % 03/21/19 06:30 0 % 03/21/19 06:30 0 % 03/21/19 06:30 Nucleated RBC % Not Reportable 03/21/19 06:30 Seg Neutrophils # 7.3 K/mm3 (1.8-7.7) 03/20/19 08:40 Seg Neutrophils # Man 6.7 K/mm3 (1.8-7.7) 03/21/19 06:30 Band Neutrophils # 0.0 K/mm3 03/21/19 06:30 0.7 K/mm3 (1.2-5.4) L 03/21/19 06:30 Abs React Lymphs (Man) 0.0 K/mm3 03/21/19 06:30 0.1 K/mm3 (0.0-0.8) 03/21/19 06:30 0.7 K/mm3 (0.0-0.4) H 03/21/19 06:30 0.1 K/mm3 (0.0-0.1) 03/21/19 06:30 0.1 K/mm3 03/21/19 06:30 0.0 K/mm3 03/21/19 06:30 0.0 K/mm3 03/21/19 06:30 Blast Cells # 0.0 K/mm3 03/21/19 06:30 WBC Morphology Not Reportable 03/21/19 06:30 Hypersegmented Neuts Not Reportable 03/21/19 06:30 Hyposegmented Neuts Not Reportable 03/21/19 06:30 Hypogranular Neuts Not Reportable 03/21/19 06:30 Not Reportable 03/21/19 06:30 Not Reportable 03/21/19 06:30 Not Reportable 03/21/19 06:30 Not Reportable 03/21/19 06:30 Not Reportable 03/21/19 06:30 Not Reportable 03/21/19 06:30 Consistent w auto 03/21/19 06:30 Not Reportable 03/21/19 06:30 Plt Clumps, EDTA Not Reportable 03/21/19 06:30 Not Reportable 03/21/19 06:30 Not Reportable 03/21/19 06:30 Not Reportable 03/21/19 06:30 Plt Morphology Comment Not Reportable 03/21/19 06:30 RBC Morphology Not Reportable 03/21/19 06:30 Dimorphic RBCs Not Reportable 03/21/19 06:30 Not Reportable 03/21/19 06:30 Few 03/21/19 06:30 Few 03/21/19 06:30 Few 03/21/19 06:30 Not Reportable 03/21/19 06:30 Not Reportable 03/21/19 06:30 Not Reportable 03/21/19 06:30 Not Reportable 03/21/19 06:30 Not Reportable 03/21/19 06:30 1+ 03/21/19 06:30 Not Reportable 03/21/19 06:30 Few 03/21/19 06:30 Not Reportable 03/21/19 06:30 Not Reportable 03/21/19 06:30 Not Reportable 03/21/19 06:30 Not Reportable 03/21/19 06:30 Not Reportable 03/21/19 06:30 Not Reportable 03/21/19 06:30 Not Reportable 03/21/19 06:30 Acanthocytes (Spur) Not Reportable 03/21/19 06:30 Rouleaux Not Reportable 03/21/19 06:30 Not Reportable 03/21/19 06:30 Not Reportable 03/21/19 06:30 Not Reportable 03/21/19 06:30 Not Reportable 03/21/19 06:30 Hem Pathologist Commnt No 03/21/19 06:30 PT 16.3 Sec. (12.2-14.9) H 03/01/19 09:39 INR 1.35 (0.87-1.13) H 03/01/19 09:39 APTT 33.7 Sec. (24.2-36.6) 02/21/19 18:30 2987.82 ng/mlDDU (0-234) H 02/22/19 05:54 POC ABG pH 7.510 (7.35-7.45) H 03/18/19 06:38 ABG pH 7.424 pH Units (7.350-7.450) 03/19/19 04:23 POC ABG pCO2 38.9 (35-45) 03/18/19 06:38 ABG pCO2 48.0 mm Hg 03/19/19 04:23 POC ABG pO2 164 (80-105) H 03/18/19 06:38 ABG pO2 78.3 mm Hg (80.0-90.0) L 03/19/19 04:23 POC ABG HCO3 31.0 (22-26 mml/L) 03/18/19 06:38 ABG HCO3 30.7 mmol/L (20.0-26.0) H 03/19/19 04:23 POC ABG Total CO2 32 (23-27mmol/L) 03/18/19 06:38 POC ABG O2 Sat 100 03/18/19 06:38 ABG O2 Saturation 97.0 % (95.0-99.0) 03/19/19 04:23 ABG O2 Content 7.9 (0.0-44) 03/19/19 04:23 POC ABG Base Excess 8 ((-2) - (+3)mmol/L) 03/18/19 06:38 ABG Base Excess 5.8 mmol/L (-2.0-3.0) H 03/19/19 04:23 ABG Hemoglobin 5.8 gm/dl (14.0-18.0) L 03/19/19 04:23 ABG Carboxyhemoglobin 2.0 % (0.0-5.0) 03/19/19 04:23 ABG Methemoglobin 0.4 % (0.0-1.5) 03/19/19 04:23 94.6 % (95.0-99.0) L 03/19/19 04:23 35 % 03/19/19 04:23 Sodium 147 mmol/L (137-145) H 03/23/19 04:00 Potassium 5.2 mmol/L (3.6-5.0) H 03/23/19 04:00 Chloride 99.6 mmol/L (98-107) 03/23/19 04:00 Carbon Dioxide 29 mmol/L (22-30) 03/23/19 04:00 24 mmol/L 03/23/19 04:00 BUN 86 mg/dL (9-20) H 03/23/19 04:00 3.2 mg/dL (0.8-1.5) H 03/23/19 04:00 Estimated GFR 24 ml/min 03/23/19 04:00 27 % 03/23/19 04:00 Glucose 128 mg/dL (75-100) H 03/23/19 04:00 POC Glucose 132 (70-105) H 03/23/19 05:21 Lactic Acid 1.00 mmol/L (0.7-2.0) 02/21/19 20:58 Calcium 10.3 mg/dL (8.4-10.2) H 03/23/19 04:00 Phosphorus 3.10 mg/dL (2.5-4.5) 03/15/19 04:38 Magnesium 2.00 mg/dL (1.7-2.3) 03/21/19 05:00 0.30 mg/dL (0.1-1.2) 03/21/19 05:00 AST 23 units/L (5-40) 03/21/19 05:00 ALT 18 units/L (7-56) 03/21/19 05:00 212 units/L (35-129) H 03/21/19 05:00 28.0 umol/L (25-60) 02/21/19 20:04 64 units/L (55-170) 02/22/19 03:42 CK-MB (CK-2) 3.7 ng/mL (0.0-4.0) 02/22/19 03:42 CK-MB (CK-2) Rel Index 5.7 (0-4) H 02/22/19 03:42 0.193 ng/mL (0.00-0.029) H* 02/22/19 03:42 6.7 g/dL (6.3-8.2) 03/21/19 05:00 2.2 g/dL (3.9-5) L 03/21/19 05:00 0.5 % 03/21/19 05:00 Triglycerides 51 mg/dL (2-149) 02/21/19 18:30 Cholesterol 82 mg/dL (50-199) 02/21/19 18:30 36 mg/dL (50-130) L 02/21/19 18:30 40 mg/dL (40-59) 02/21/19 18:30 2.05 % 02/21/19 18:30 TSH 2.760 mlU/mL (0.270-4.200) 02/21/19 20:04 PTH Intact 267.6 pg/mL (15-65) H 03/02/19 05:15 Salicylates < 0.3 mg/dL (2.8-20.0) L 02/21/19 20:04 Acetaminophen < 5.0 ug/mL (10.0-30.0) L 02/21/19 20:04 Hepatitis A IgM Ab Non-reactive (NonReactive) 02/23/19 11:20 Hep Bs Antigen Non-reactive (Negative) 02/23/19 11:20 Hep B Core IgM Ab Non-reactive (NonReactive) 02/23/19 11:20 Non-reactive (NonReactive) 02/23/19 11:20 Blood Type O POSITIVE 03/22/19 08:48 Antibody Screen Negative 03/22/19 08:48 Crossmatch See Detail 03/22/19 08:48 Active Medications - Current Medications Current Medications: Generic Name Dose Route Start Last Admin Trade Name Freq PRN Reason Stop Dose Admin Acetaminophen 650 mg 02/21/19 22:19 03/18/19 04:53 Tylenol PO 650 mg Q4H PRN Administration Pain MILD(1-3)/Fever >100.5/HILL Albuterol/Ipratropium 1 ampul 02/24/19 20:00 03/22/19 19:33 Duoneb *Not For Prn Use* IH 1 ampul TIDRT SANCHEZ Administration Lipase/Protease/Amylase 1 each 03/05/19 14:04 Pancrejewel Barrientos 10,500 Unit FEEDTUBE PRN PRN For Clogged Feeding Tube Dextrose 50 ml 02/21/19 22:22 03/03/19 17:37 D50w (25gm) Syringe IV 50 ml PRN PRN Administration Hypoglycemia Epoetin Solitario 10,000 unit 03/18/19 16:13 03/20/19 18:00 Procrit SUB-Q 10,000 unit UMA PRN Administration anemia Famotidine 20 mg 02/23/19 10:00 03/22/19 09:10 Pepcid PO 20 mg DAILY SANCHEZ Administration Heparin Sodium (Porcine) 5,000 unit 03/04/19 22:00 03/22/19 22:24 Heparin SUB-Q 5,000 unit Q12HR SANCHEZ Administration Hydrophilic Ointment 1 applic 02/21/19 18:24 03/05/19 08:16 Vaseline Lip Therapy TP 1 applic Q2HR PRN Administration Dry Lips Sodium Chloride 100 mls @ 999 mls/hr 02/26/19 09:00 Nacl 0.9% IV UMA PRN Hypotension Norepinephrine 8 mg/ Sodium 250 mls @ 3.75 mls/hr 03/18/19 13:00 03/19/19 09:17 Chloride IV 0 mcg/min TITR SANCHEZ 0 mls/hr Titration Protocol 2 MCG/MIN Insulin Human Regular 0 units 02/26/19 12:00 03/23/19 06:06 Humulin R SUB-Q Not Given Q6HR SANCHEZ Protocol Metoprolol Tartrate 2.5 mg 02/28/19 12:06 03/15/19 05:15 Lopressor IV 2.5 mg Q4HR PRN Administration Tachycardia Multi-Ingred Cream/Lotion/Oil/Oint 1 applic 02/21/19 18:24 Artificial Tears Ophth Oint OU Q4HR PRN Dry Eye(s) Ondansetron HCl 4 mg 02/21/19 22:19 03/12/19 21:39 Zofran IV 4 mg Q8H PRN Administration Nausea And Vomiting Risperidone 1 mg 02/25/19 13:00 03/22/19 09:10 Risperdal PO 1 mg DAILY SANCHEZ Administration Scopolamine 1 each 03/13/19 04:00 03/22/19 03:56 Transderm-Scop TD 1 each Q3D SANCHEZ Administration Sertraline HCl 100 mg 02/25/19 13:00 03/22/19 09:10 Zoloft PO 100 mg DAILY SANCHEZ Administration Simple Syrup 15 ml 03/05/19 14:04 Simple Syrup FEEDTUBE PRN PRN Hypoglycemia Simple Syrup 30 ml 03/05/19 14:04 Simple Syrup FEEDTUBE PRN PRN Hypoglycemia Sodium Bicarbonate 325 mg 03/05/19 14:04 Sodium Bicarbonate FEEDTUBE PRN PRN For Clogged Feeding Tube Sodium Chloride 10 ml 02/22/19 10:00 03/22/19 22:24 Sodium Chloride Flush Syringe 10 Ml IV 10 ml BID SANCHEZ Administration Sodium Chloride 10 ml 02/21/19 22:19 02/24/19 22:00 Sodium Chloride Flush Syringe 10 Ml IV 10 ml PRN PRN Administration LINE FLUSH Tramadol HCl 50 mg 03/05/19 10:08 03/18/19 04:38 Ultram PO 50 mg Q6H PRN Administration Pain, Moderate (4-6) Trimethoprim/Sulfamethoxazole 160 mg 03/19/19 15:00 03/22/19 09:10 Bactrim 200-40 Mg/5 Ml PO 160 mg Q24HR SANCHEZ Administration Nutrition/Malnutrition Assess - Dietary Evaluation Nutrition/Malnutrition Findings: Nutrition Notes Start: 02/22/19 12:51 Freq: Status: Active Protocol: Document 03/19/19 11:10 LM (Rec: 03/19/19 11:17 LM [email or web address]) Nutrition Notes Initial or Follow up Reassessment Current Diagnosis Diabetes,Hypertension Other Pertinent Diagnosis Sacral PU, ESRD on HD (T/Thurs /Sat), Schizophrenia,Blind in L eye,S/P trach Current Diet Vital AF 1.2 at 70 ml/hr Labs/Tests Reviewed Pertinent Medications Humulin Height 5 ft 10 in Weight 88.75 kg [place] Body Weight (kg) 75.45 BMI 28.0 Subjective/Other Information Vital AF running 75 ml/hr at time of visit. Pt toleating TF . Percent of energy/protein needs met: 100%/100% Burn Absent Trauma Absent #2 Nutrition Diagnosis Increased nutrient needs ( specify in comment below) Diagnosis Progress(for reassessment Continues documentation) #1 Nutrition Diagnosis Inadequate oral intake Diagnosis Progress(for reassessment Continues documentation) Is patient on ventilator? Yes Is Patient Ambulatory and/or Out of Bed No REE-([facility]-confined to bed) 2024.576 Kcal/Kg value to use for calculation 18 Approximate Energy Requirements Using 1598 kcal/Kg Calculation Used for Recommendations Kcal/kg Additional Notes Protein Needs: 106-177g (1.2- 2g/kg) Fluid Needs: 1 ml/kcal Nutrition Intervention Change Diet Order: Continue TF Nutrition Support: Vital 1.2 at 70 ml/hr Water flush of 100 mls q 4 hrs Kcal 2,016 Protein (gm) 126 Fluid (mL) 1,362 Add Supplement/Snack (indicate name/kcal Abhilash BID /protein ) Provides kCal: 190 Provides Protein (gm) 5 Goal #1 TF tolerance Goal #2 Continue to meet at least 80% of calorie and protein needs via TF Anticipated Discharge Needs: Unable to determine at this time Follow-Up By: 03/26/19 Additional Comments F/U for TF rate/tolerance
[2019-03-23] MEDS: IPRATROPIUM/ALBUTEROL SULFATE 3 ML AMPUL.NEB IH SCH ×3 (08:28→21:19)
[2019-03-23] MEDS ORDERED: SODIUM CHLORIDE*PRIMING MACHINE ONLY FOR DIALYSIS MC ONE (09:00)
[2019-03-23] MEDS: SULFAMETHOXAZOLE/TRIMETHOPRIM 200-40 MG/5 ML ORAL LIQD 30 ML PO SCH (09:46)
[2019-03-23] MEDS: risperiDONE 1 MG TAB PO SCH (09:48)
[2019-03-23] MEDS: SERTRALINE 100 MG TAB PO SCH (09:48)
[2019-03-23] MEDS: FAMOTIDINE 20 MG TAB PO SCH (09:48)
[2019-03-23] MEDS: HEPARIN 5,000 UNIT/1 ML VIAL SUB-Q SCH ×2 (09:48→21:28)
[2019-03-23 11:50] LABS: Hemoglobin 7.9 gm/dl (11.8-15.2)
--- NOTE | 2019-03-23 11:58 | Progress Note ---
Assessment and Plan Blood cultures 12/26/2018 no growth today. Blood cultures 01/01/2019 no growth today. Wound cultures 01/02/2019 ESBL Kleb, MDR Ecoli and E raffinosus resistant to penicillin. 03/14 Sputum Cx: MDR Acinetobacter 03/14 BCx: NGTD 03/17 Sputum CX: MDR Acinetobacter Assessment: 63 y/o male with history of ESRD on HD, HTN, CAD S/P CABG, CVA, DM, Atrial Fib, Anemia, Hyperparathyroidism, Hypocalcemia, schizophrenia; well known to ID service from previous admissions, most recently on 12/26/2018 due to sepsis from unstagable necrotic sacral decubitus s/p OR on 01/01/2019 for open excisional debridement of necrotic sacral wound with ESBL Kleb, MDR Ecoli, treated with Meropenem 1 gm IV every 24 hours via tunneled catheter and Vancomycin 1 gm post HD Saturday, and Saturday for 6 weeks ending 02-16-19; readmitted: 1. Sepsis: secondary to MDR Acinetobacter pneumonia - Cultures with multidrug resistant Acinetobacter baumannii. Sensitive to Bactrim. Normally would consider a contaminant, however given his symptoms will treat. He is poor prognosis, as such will avoid aminoglycosides as long as possible. Will treat with Bactrim ESRD dosing. Discussed with pharmacy. If he fails this would need to consider aminoglycoside or Poly B/Minocycline. 2. Hypoxic respiratory failure - 2/2 fluid overload. Improving 3. DM2 4. Left 5th finger pressure ulcer: not infected 5. Sacral stage IV ulcer s/p extensive treatment - NOT infected currently; treated with Meropenem 1 gm IV every 24 hours via tunneled catheter and Vancomycin 1 gm post HD Saturday, and Saturday for 6 weeks ending 02-16-19 6. ESRD on HD Recommendations: - continue Bactrim ESRD dosing per pharmacy D5 of 10 - follow up blood cultures - contact precautions - consider hospice, he will continue to develop worsening resistance and we will exhaust all therapeutic options for Acinetobacter very quicky. will follow Bre Machuca MD Infectious Diseases Admissions Officer [facility] M [phone] O [phone] Subjective Date of service: 03/23/19 Principal diagnosis: respiratory failure Interval history: Remains afebrile, remains somnolent. Objective - Exam Narrative Exam: General appearance: somnolent in NAD Eyes: anicteric sclerae, moist conjunctivae; no lid-lag; PERRLA HENT: Atraumatic; oropharynx edentulous Neck: trach clear Lungs: CTA CV: RRR no murmur Abdomen: Soft, non-tender; +PEG Extremities: no edema, no cyanosis Skin: sacral stage IV pressure ulcer; 17cm x 10cm x 6.2cm, with undermining 4cm at 1 O'clock per wound care consult assessment - clean Psych: no agitated Left SC TLC - Constitutional Vitals: Vital Signs Temp Pulse Resp BP Pulse Ox 97.7 F 106 H 31 H 124/71 97 03/23/19 08:05 03/23/19 11:00 03/23/19 11:00 03/23/19 11:00 03/23/19 11:00 Temperature -Last 24 Hours Temperature 97.7 F Temperature 97.8 F Temperature 97.8 F Temperature 97.8 F Temperature 97.8 F Temperature 98 F Temperature 97.8 F Temperature 97.9 F Temperature 97.9 F Temperature 97.7 F Temperature 99.1 F Temperature 99.8 F Temperature 99.6 F Temperature 98.8 F Temperature 98.4 F - Labs CBC & Chem 7: 03/23/19 11:36 03/23/19 04:00 Labs: Abnormal lab results 03/19/19 03/22/19 03/22/19 Range/Units 08:54 08:48 12:37 WBC (4.5-11.0) K/mm3 RBC (3.65-5.03) M/mm3 Hgb (11.8-15.2) gm/dl Hct (35.5-45.6) % RDW (13.2-15.2) % Sodium (137-145) mmol/L Potassium (3.6-5.0) mmol/L BUN (9-20) mg/dL Creatinine (0.8-1.5) mg/dL Glucose (75-100) mg/dL POC Glucose 143 H (70-105) Calcium (8.4-10.2) mg/dL Crossmatch See Detail See Detail 03/22/19 03/23/19 03/23/19 Range/Units 17:35 00:07 04:00 WBC 11.2 H (4.5-11.0) K/mm3 RBC 2.32 L (3.65-5.03) M/mm3 Hgb 6.4 L (11.8-15.2) gm/dl Hct 19.7 L* (35.5-45.6) % RDW 19.4 H (13.2-15.2) % Sodium (137-145) mmol/L Potassium (3.6-5.0) mmol/L BUN (9-20) mg/dL Creatinine (0.8-1.5) mg/dL Glucose (75-100) mg/dL POC Glucose 155 H 135 H (70-105) Calcium (8.4-10.2) mg/dL Crossmatch 03/23/19 03/23/19 03/23/19 Range/Units 04:00 05:21 11:36 WBC (4.5-11.0) K/mm3 RBC (3.65-5.03) M/mm3 Hgb 7.9 L (11.8-15.2) gm/dl Hct 25.0 L (35.5-45.6) % RDW (13.2-15.2) % Sodium 147 H (137-145) mmol/L Potassium 5.2 H (3.6-5.0) mmol/L BUN 86 H (9-20) mg/dL Creatinine 3.2 H (0.8-1.5) mg/dL Glucose 128 H (75-100) mg/dL POC Glucose 132 H (70-105) Calcium 10.3 H (8.4-10.2) mg/dL Crossmatch
[2019-03-23] MEDS: EPOETIN ALFA 10,000 UNIT/1 ML INJ SUB-Q PRN (18:11)
--- NOTE | 2019-03-23 19:08 | Progress Note ---
Assessment and Plan Imp: 1. Acute encephalopathy, probably metabolic or toxic 2. A/C systolic CHF 3. Dilated CMP 4. Pulm HTN 5. ESRD 6. RUL atelectasis, probably mucous plugging -> resolved 7. KEON pneumonia Rec: 1. Chest PT, Duonebs 2. Tolerating Tpiece; monitor 3. Avoid sedatives; resumed psych meds 4. DVT and GI PPx 5. TFs per PEG 6. HD per renal 7. Bactrim versus Acinetobacter sp. per ID recs; f/u CXR periodically to ensure resolution of KEON density 8. Complex decision-making 9. Prognosis is poor; patient hospice-appropriate, family refuses No family present Subjective Date of service: 03/23/19 Principal diagnosis: respiratory failure Interval history: No events. Mentation near usual poor baseline. Had HD. Had 1 unit of PRBCs. Cannot give hx. On 28% per Tpiece. Active Medications Acetaminophen (Tylenol) 650 mg PO Q4H PRN PRN Reason: Pain MILD(1-3)/Fever >100.5/HILL Last Admin: 03/18/19 04:53 Dose: 650 mg Documented by: Albuterol/Ipratropium (Duoneb *Not For Prn Use*) 1 ampul IH TIDRT [facility] Last Admin: 03/23/19 13:45 Dose: 1 ampul Documented by: Lipase/Protease/Amylase (Pancrejewel Barrientos 10,500 Unit) 1 each FEEDTUBE PRN PRN PRN Reason: For Clogged Feeding Tube Dextrose (D50w (25gm) Syringe) 50 ml IV PRN PRN PRN Reason: Hypoglycemia Last Admin: 03/03/19 17:37 Dose: 50 ml Documented by: Epoetin Solitario (Procrit) 10,000 unit SUB-Q UMA PRN PRN Reason: anemia Last Admin: 03/23/19 18:11 Dose: 10,000 unit Documented by: Famotidine (Pepcid) 20 mg PO DAILY [facility] Last Admin: 03/23/19 09:48 Dose: 20 mg Documented by: Heparin Sodium (Porcine) (Heparin) 5,000 unit SUB-Q Q12HR [facility] Last Admin: 03/23/19 09:48 Dose: 5,000 unit Documented by: Hydrophilic Ointment (Vaseline Lip Therapy) 1 applic TP Q2HR PRN PRN Reason: Dry Lips Last Admin: 03/05/19 08:16 Dose: 1 applic Documented by: Sodium Chloride (Nacl 0.9%) 100 mls @ 999 mls/hr IV UMA PRN PRN Reason: Hypotension Norepinephrine 8 mg/ Sodium (Chloride) 250 mls @ 3.75 mls/hr IV TITR [facility]; Protocol Last Titration: 03/19/19 09:17 Dose: 0 mcg/min, 0 mls/hr Documented by: Insulin Human Regular (Humulin R) 0 units SUB-Q Q6HR [facility]; Protocol Last Admin: 03/23/19 12:52 Dose: Not Given Documented by: Metoprolol Tartrate (Lopressor) 2.5 mg IV Q4HR PRN PRN Reason: Tachycardia Last Admin: 03/15/19 05:15 Dose: 2.5 mg Documented by: Multi-Ingred Cream/Lotion/Oil/Oint (Artificial Tears Ophth Oint) 1 applic OU Q4HR PRN PRN Reason: Dry Eye(s) Ondansetron HCl (Zofran) 4 mg IV Q8H PRN PRN Reason: Nausea And Vomiting Last Admin: 03/12/19 21:39 Dose: 4 mg Documented by: Risperidone (Risperdal) 1 mg PO DAILY [facility] Last Admin: 03/23/19 09:48 Dose: 1 mg Documented by: Scopolamine (Transderm-Scop) 1 each TD Q3D [facility] Last Admin: 03/22/19 03:56 Dose: 1 each Documented by: Sertraline HCl (Zoloft) 100 mg PO DAILY [facility] Last Admin: 03/23/19 09:48 Dose: 100 mg Documented by: Simple Syrup (Simple Syrup) 15 ml FEEDTUBE PRN PRN PRN Reason: Hypoglycemia Simple Syrup (Simple Syrup) 30 ml FEEDTUBE PRN PRN PRN Reason: Hypoglycemia Sodium Bicarbonate (Sodium Bicarbonate) 325 mg FEEDTUBE PRN PRN PRN Reason: For Clogged Feeding Tube Sodium Chloride (Sodium Chloride Flush Syringe 10 Ml) 10 ml IV BID [facility] Last Admin: 03/23/19 09:56 Dose: 10 ml Documented by: Sodium Chloride (Sodium Chloride Flush Syringe 10 Ml) 10 ml IV PRN PRN PRN Reason: LINE FLUSH Last Admin: 02/24/19 22:00 Dose: 10 ml Documented by: Tramadol HCl (Ultram) 50 mg PO Q6H PRN PRN Reason: Pain, Moderate (4-6) Last Admin: 03/18/19 04:38 Dose: 50 mg Documented by: Trimethoprim/Sulfamethoxazole (Bactrim 200-40 Mg/5 Ml) 160 mg PO Q24HR [facility] Last Admin: 03/23/19 09:46 Dose: 160 mg Documented by: Objective Vital Signs - 12hr 03/23/19 03/23/19 03/23/19 07:35 07:36 08:00 Temperature 97.8 F 97.8 F 97.8 F Pulse Rate 108 H Pulse Rate [ Anterior Bilateral Throughout] Pulse Rate [ 106 H From Monitor] Pulse Rate [ Throughout] Respiratory 24 24 Rate Respiratory Rate [Anterior Bilateral Throughout] Respiratory Rate [ Throughout] Blood Pressure 140/71 O2 Sat by Pulse 100 100 Oximetry O2 Sat by Pulse Oximetry [ Anterior Bilateral Throughout] O2 Sat by Pulse Oximetry [ Assessment] 03/23/19 03/23/19 03/23/19 08:01 08:05 08:10 Temperature 97.7 F Pulse Rate 104 H 104 H 106 H Pulse Rate [ Anterior Bilateral Throughout] Pulse Rate [ From Monitor] Pulse Rate [ Throughout] Respiratory 28 H 28 H Rate Respiratory Rate [Anterior Bilateral Throughout] Respiratory Rate [ Throughout] Blood Pressure 128/71 128/71 O2 Sat by Pulse 98 98 Oximetry O2 Sat by Pulse Oximetry [ Anterior Bilateral Throughout] O2 Sat by Pulse Oximetry [ Assessment] 03/23/19 03/23/19 03/23/19 08:25 08:28 09:00 Temperature Pulse Rate 108 H 113 H Pulse Rate [ 100 H Anterior Bilateral Throughout] Pulse Rate [ From Monitor] Pulse Rate [ 100 H Throughout] Respiratory 28 H 33 H Rate Respiratory 24 Rate [Anterior Bilateral Throughout] Respiratory 24 Rate [ Throughout] Blood Pressure 142/72 140/72 O2 Sat by Pulse 99 96 97 Oximetry O2 Sat by Pulse Oximetry [ Anterior Bilateral Throughout] O2 Sat by Pulse Oximetry [ Assessment] 03/23/19 03/23/19 03/23/19 10:00 11:00 12:00 Temperature 99.8 F H Pulse Rate 115 H 106 H 117 H Pulse Rate [ Anterior Bilateral Throughout] Pulse Rate [ 99 H From Monitor] Pulse Rate [ Throughout] Respiratory 31 H 31 H 24 Rate Respiratory Rate [Anterior Bilateral Throughout] Respiratory Rate [ Throughout] Blood Pressure 137/72 124/71 133/79 O2 Sat by Pulse 99 97 98 Oximetry O2 Sat by Pulse Oximetry [ Anterior Bilateral Throughout] O2 Sat by Pulse Oximetry [ Assessment] 03/23/19 03/23/19 03/23/19 13:00 13:45 14:00 Temperature Pulse Rate 115 H 116 H Pulse Rate [ 116 H Anterior Bilateral Throughout] Pulse Rate [ From Monitor] Pulse Rate [ Throughout] Respiratory 33 H 29 H Rate Respiratory 24 Rate [Anterior Bilateral Throughout] Respiratory Rate [ Throughout] Blood Pressure 137/80 141/77 O2 Sat by Pulse 95 94 Oximetry O2 Sat by Pulse Oximetry [ Anterior Bilateral Throughout] O2 Sat by Pulse Oximetry [ Assessment] 03/23/19 03/23/19 03/23/19 14:04 15:00 15:26 Temperature 98.2 F Pulse Rate 114 H 116 H Pulse Rate [ Anterior Bilateral Throughout] Pulse Rate [ From Monitor] Pulse Rate [ Throughout] Respiratory 28 H Rate Respiratory Rate [Anterior Bilateral Throughout] Respiratory Rate [ Throughout] Blood Pressure 135/79 139/71 O2 Sat by Pulse 97 Oximetry O2 Sat by Pulse 97 Oximetry [ Anterior Bilateral Throughout] O2 Sat by Pulse 95 Oximetry [ Assessment] 03/23/19 03/23/19 03/23/19 15:30 15:45 16:00 Temperature 98.2 F Pulse Rate 113 H 107 H 119 H Pulse Rate [ Anterior Bilateral Throughout] Pulse Rate [ 112 H From Monitor] Pulse Rate [ Throughout] Respiratory 27 H Rate Respiratory Rate [Anterior Bilateral Throughout] Respiratory Rate [ Throughout] Blood Pressure 138/80 133/82 137/87 O2 Sat by Pulse 96 Oximetry O2 Sat by Pulse Oximetry [ Anterior Bilateral Throughout] O2 Sat by Pulse Oximetry [ Assessment] 03/23/19 03/23/19 03/23/19 16:15 16:30 16:45 Temperature Pulse Rate 106 H 117 H 113 H Pulse Rate [ Anterior Bilateral Throughout] Pulse Rate [ From Monitor] Pulse Rate [ Throughout] Respiratory Rate Respiratory Rate [Anterior Bilateral Throughout] Respiratory Rate [ Throughout] Blood Pressure 133/77 135/70 140/75 O2 Sat by Pulse Oximetry O2 Sat by Pulse Oximetry [ Anterior Bilateral Throughout] O2 Sat by Pulse Oximetry [ Assessment] 03/23/19 03/23/19 03/23/19 17:00 17:15 17:30 Temperature Pulse Rate 123 H 117 H 112 H Pulse Rate [ Anterior Bilateral Throughout] Pulse Rate [ From Monitor] Pulse Rate [ Throughout] Respiratory 25 H Rate Respiratory Rate [Anterior Bilateral Throughout] Respiratory Rate [ Throughout] Blood Pressure 140/75 139/73 134/78 O2 Sat by Pulse 95 Oximetry O2 Sat by Pulse Oximetry [ Anterior Bilateral Throughout] O2 Sat by Pulse Oximetry [ Assessment] 03/23/19 03/23/19 03/23/19 17:45 18:00 18:15 Temperature Pulse Rate 113 H 126 H 101 H Pulse Rate [ Anterior Bilateral Throughout] Pulse Rate [ From Monitor] Pulse Rate [ Throughout] Respiratory 32 H Rate Respiratory Rate [Anterior Bilateral Throughout] Respiratory Rate [ Throughout] Blood Pressure 132/91 127/75 123/78 O2 Sat by Pulse 96 Oximetry O2 Sat by Pulse Oximetry [ Anterior Bilateral Throughout] O2 Sat by Pulse Oximetry [ Assessment] 03/23/19 03/23/19 03/23/19 18:30 18:45 18:50 Temperature 98.0 F Pulse Rate 109 H 111 H 117 H Pulse Rate [ Anterior Bilateral Throughout] Pulse Rate [ From Monitor] Pulse Rate [ Throughout] Respiratory 18 Rate Respiratory Rate [Anterior Bilateral Throughout] Respiratory Rate [ Throughout] Blood Pressure 133/68 131/77 129/81 O2 Sat by Pulse Oximetry O2 Sat by Pulse 93 Oximetry [ Anterior Bilateral Throughout] O2 Sat by Pulse Oximetry [ Assessment] Constitutional: no acute distress, alert Eyes: non-icteric ENT: oropharynx moist Neck: supple Effort: normal Ascultation: Bilateral: other (coarse BS bilaterally) Cardiovascular: other (tachy, RR; no mrg) Gastrointestinal: normoactive bowel sounds, soft, non-tender, non-distended, other (ostomy in place, brown stool) Extremities: no cyanosis, no edema, pink and warm Neurologic: other (mild weakness LUE, o/w nonfocal) Psychiatric: other (unable to assess) CBC and BMP: 03/23/19 11:36 03/23/19 04:00 ABG, PT/INR, D-dimer: ABG POC ABG pH 7.510 (7.35-7.45) H 03/18/19 06:38 ABG pH 7.424 pH Units (7.350-7.450) 03/19/19 04:23 POC ABG pCO2 38.9 (35-45) 03/18/19 06:38 ABG pCO2 48.0 mm Hg 03/19/19 04:23 POC ABG pO2 164 (80-105) H 03/18/19 06:38 ABG pO2 78.3 mm Hg (80.0-90.0) L 03/19/19 04:23 POC ABG HCO3 31.0 (22-26 mml/L) 03/18/19 06:38 POC ABG Total CO2 32 (23-27mmol/L) 03/18/19 06:38 POC ABG O2 Sat 100 03/18/19 06:38 ABG O2 Saturation 97.0 % (95.0-99.0) 03/19/19 04:23 PT/INR, D-dimer PT 16.3 Sec. (12.2-14.9) H 03/01/19 09:39 INR 1.35 (0.87-1.13) H 03/01/19 09:39 2987.82 ng/mlDDU (0-234) H 02/22/19 05:54 Abnormal lab findings: Abnormal Labs 02/21/19 02/21/19 02/21/19 18:30 18:30 18:30 WBC RBC 3.26 L Hgb 8.8 L Hct 29.0 L MCH 27 L MCHC 30 L RDW 19.1 H Lymph % (Auto) 6.1 L [place] % (Auto) Eos % (Auto) Lymph # 0.4 L [place] # Eos # Seg Neutrophils % 86.2 H Seg Neuts % (Manual) Lymphocytes % (Manual) Eosinophils % (Manual) Seg Neutrophils # Lymphocytes # (Manual) Eosinophils # (Manual) PT INR D-Dimer POC ABG pH POC ABG pCO2 POC ABG pO2 ABG pO2 ABG HCO3 ABG Base Excess ABG Hemoglobin Oxyhemoglobin Sodium 133 L Potassium 3.3 L Chloride 93.1 L Carbon Dioxide 33 H BUN Creatinine Glucose 161 H POC Glucose Calcium Phosphorus ALT Alkaline Phosphatase 136 H Total Creatine Kinase 37 L CK-MB (CK-2) Rel Index Troponin T 0.192 H* Albumin 2.4 L LDL Cholesterol Direct 36 L PTH Intact Salicylates Acetaminophen Crossmatch 02/21/19 02/21/19 02/21/19 18:42 20:04 20:04 WBC RBC Hgb Hct MCH MCHC RDW Lymph % (Auto) [place] % (Auto) Eos % (Auto) Lymph # [place] # Eos # Seg Neutrophils % Seg Neuts % (Manual) Lymphocytes % (Manual) Eosinophils % (Manual) Seg Neutrophils # Lymphocytes # (Manual) Eosinophils # (Manual) PT INR D-Dimer POC ABG pH POC ABG pCO2 56.7 H POC ABG pO2 291 H ABG pO2 ABG HCO3 ABG Base Excess ABG Hemoglobin Oxyhemoglobin Sodium Potassium Chloride Carbon Dioxide BUN Creatinine Glucose POC Glucose Calcium Phosphorus ALT Alkaline Phosphatase Total Creatine Kinase CK-MB (CK-2) Rel Index Troponin T Albumin LDL Cholesterol Direct PTH Intact Salicylates < 0.3 L Acetaminophen < 5.0 L Crossmatch 02/21/19 02/22/19 02/22/19 22:35 03:42 03:42 WBC RBC 3.20 L Hgb 8.8 L Hct 27.6 L MCH MCHC RDW 18.9 H Lymph % (Auto) 7.4 L [place] % (Auto) Eos % (Auto) Lymph # 0.7 L [place] # Eos # Seg Neutrophils % 84.7 H Seg Neuts % (Manual) Lymphocytes % (Manual) Eosinophils % (Manual) Seg Neutrophils # Lymphocytes # (Manual) Eosinophils # (Manual) PT INR D-Dimer POC ABG pH POC ABG pCO2 POC ABG pO2 ABG pO2 ABG HCO3 ABG Base Excess ABG Hemoglobin Oxyhemoglobin Sodium 134 L Potassium 2.6 L* D Chloride Carbon Dioxide BUN Creatinine Glucose POC Glucose Calcium Phosphorus ALT Alkaline Phosphatase Total Creatine Kinase CK-MB (CK-2) Rel Index 5.2 H Troponin T 0.202 H* Albumin LDL Cholesterol Direct PTH Intact Salicylates Acetaminophen Crossmatch 02/22/19 02/22/19 02/22/19 03:42 05:54 09:04 WBC RBC Hgb Hct MCH MCHC RDW Lymph % (Auto) [place] % (Auto) Eos % (Auto) Lymph # [place] # Eos # Seg Neutrophils % Seg Neuts % (Manual) Lymphocytes % (Manual) Eosinophils % (Manual) Seg Neutrophils # Lymphocytes # (Manual) Eosinophils # (Manual) PT INR D-Dimer 2987.82 H POC ABG pH 7.451 H POC ABG pCO2 POC ABG pO2 ABG pO2 ABG HCO3 ABG Base Excess ABG Hemoglobin Oxyhemoglobin Sodium Potassium Chloride Carbon Dioxide BUN Creatinine Glucose POC Glucose Calcium Phosphorus ALT Alkaline Phosphatase Total Creatine Kinase CK-MB (CK-2) Rel Index 5.7 H Troponin T 0.193 H* Albumin LDL Cholesterol Direct PTH Intact Salicylates Acetaminophen Crossmatch 02/22/19 02/22/19 02/23/19 10:36 23:56 00:52 WBC RBC Hgb Hct MCH MCHC RDW Lymph % (Auto) [place] % (Auto) Eos % (Auto) Lymph # [place] # Eos # Seg Neutrophils % Seg Neuts % (Manual) Lymphocytes % (Manual) Eosinophils % (Manual) Seg Neutrophils # Lymphocytes # (Manual) Eosinophils # (Manual) PT INR D-Dimer POC ABG pH POC ABG pCO2 POC ABG pO2 ABG pO2 ABG HCO3 ABG Base Excess ABG Hemoglobin Oxyhemoglobin Sodium Potassium 3.1 L Chloride Carbon Dioxide BUN Creatinine Glucose POC Glucose 58 L 111 H Calcium Phosphorus ALT Alkaline Phosphatase Total Creatine Kinase CK-MB (CK-2) Rel Index Troponin T Albumin LDL Cholesterol Direct PTH Intact Salicylates Acetaminophen Crossmatch 02/23/19 02/23/19 02/23/19 05:00 06:35 14:26 WBC RBC Hgb Hct MCH MCHC RDW Lymph % (Auto) [place] % (Auto) Eos % (Auto) Lymph # [place] # Eos # Seg Neutrophils % Seg Neuts % (Manual) Lymphocytes % (Manual) Eosinophils % (Manual) Seg Neutrophils # Lymphocytes # (Manual) Eosinophils # (Manual) PT INR D-Dimer POC ABG pH POC ABG pCO2 POC ABG pO2 ABG pO2 ABG HCO3 ABG Base Excess ABG Hemoglobin Oxyhemoglobin Sodium 135 L Potassium 3.1 L Chloride Carbon Dioxide BUN 21 H Creatinine 2.0 H Glucose 57 L POC Glucose 64 L 62 L Calcium Phosphorus ALT Alkaline Phosphatase Total Creatine Kinase CK-MB (CK-2) Rel Index Troponin T Albumin LDL Cholesterol Direct PTH Intact Salicylates Acetaminophen Crossmatch 02/24/19 02/24/19 02/24/19 02:11 04:12 04:55 WBC RBC 2.84 L Hgb 7.8 L Hct 24.5 L MCH MCHC RDW 19.5 H Lymph % (Auto) [place] % (Auto) Eos % (Auto) Lymph # [place] # Eos # Seg Neutrophils % Seg Neuts % (Manual) Lymphocytes % (Manual) Eosinophils % (Manual) Seg Neutrophils # Lymphocytes # (Manual) Eosinophils # (Manual) PT INR D-Dimer POC ABG pH 7.511 H POC ABG pCO2 33.9 L POC ABG pO2 62 L ABG pO2 ABG HCO3 ABG Base Excess ABG Hemoglobin Oxyhemoglobin Sodium Potassium Chloride Carbon Dioxide BUN Creatinine Glucose POC Glucose 69 L Calcium Phosphorus ALT Alkaline Phosphatase Total Creatine Kinase CK-MB (CK-2) Rel Index Troponin T Albumin LDL Cholesterol Direct PTH Intact Salicylates Acetaminophen Crossmatch 02/24/19 02/24/19 02/25/19 04:55 05:41 04:45 WBC RBC Hgb Hct MCH MCHC RDW Lymph % (Auto) [place] % (Auto) Eos % (Auto) Lymph # [place] # Eos # Seg Neutrophils % Seg Neuts % (Manual) Lymphocytes % (Manual) Eosinophils % (Manual) Seg Neutrophils # Lymphocytes # (Manual) Eosinophils # (Manual) PT INR D-Dimer POC ABG pH 7.466 H POC ABG pCO2 POC ABG pO2 75 L ABG pO2 ABG HCO3 ABG Base Excess ABG Hemoglobin Oxyhemoglobin Sodium Potassium Chloride Carbon Dioxide BUN Creatinine 1.8 H Glucose 73 L POC Glucose 127 H Calcium Phosphorus ALT Alkaline Phosphatase Total Creatine Kinase CK-MB (CK-2) Rel Index Troponin T Albumin LDL Cholesterol Direct PTH Intact Salicylates Acetaminophen Crossmatch 02/25/19 02/25/19 02/26/19 16:34 21:33 03:45 WBC RBC 2.96 L Hgb 8.0 L Hct 25.8 L MCH 27 L MCHC 31 L RDW 20.0 H Lymph % (Auto) [place] % (Auto) Eos % (Auto) Lymph # [place] # Eos # Seg Neutrophils % Seg Neuts % (Manual) Lymphocytes % (Manual) Eosinophils % (Manual) Seg Neutrophils # Lymphocytes # (Manual) Eosinophils # (Manual) PT INR D-Dimer POC ABG pH POC ABG pCO2 POC ABG pO2 ABG pO2 ABG HCO3 ABG Base Excess ABG Hemoglobin Oxyhemoglobin Sodium Potassium Chloride Carbon Dioxide BUN Creatinine Glucose POC Glucose 141 H 106 H Calcium Phosphorus ALT Alkaline Phosphatase Total Creatine Kinase CK-MB (CK-2) Rel Index Troponin T Albumin LDL Cholesterol Direct PTH Intact Salicylates Acetaminophen Crossmatch 02/26/19 02/26/19 02/26/19 03:45 04:13 07:53 WBC RBC Hgb Hct MCH MCHC RDW Lymph % (Auto) [place] % (Auto) Eos % (Auto) Lymph # [place] # Eos # Seg Neutrophils % Seg Neuts % (Manual) Lymphocytes % (Manual) Eosinophils % (Manual) Seg Neutrophils # Lymphocytes # (Manual) Eosinophils # (Manual) PT INR D-Dimer POC ABG pH 7.470 H POC ABG pCO2 POC ABG pO2 ABG pO2 ABG HCO3 ABG Base Excess ABG Hemoglobin Oxyhemoglobin Sodium Potassium Chloride Carbon Dioxide BUN Creatinine 1.8 H Glucose POC Glucose 110 H Calcium Phosphorus ALT Alkaline Phosphatase Total Creatine Kinase CK-MB (CK-2) Rel Index Troponin T Albumin LDL Cholesterol Direct PTH Intact Salicylates Acetaminophen Crossmatch 02/26/19 02/26/19 02/27/19 11:56 17:43 00:12 WBC RBC Hgb Hct MCH MCHC RDW Lymph % (Auto) [place] % (Auto) Eos % (Auto) Lymph # [place] # Eos # Seg Neutrophils % Seg Neuts % (Manual) Lymphocytes % (Manual) Eosinophils % (Manual) Seg Neutrophils # Lymphocytes # (Manual) Eosinophils # (Manual) PT INR D-Dimer POC ABG pH POC ABG pCO2 POC ABG pO2 ABG pO2 ABG HCO3 ABG Base Excess ABG Hemoglobin Oxyhemoglobin Sodium Potassium Chloride Carbon Dioxide BUN Creatinine Glucose POC Glucose 112 H 127 H 127 H Calcium Phosphorus ALT Alkaline Phosphatase Total Creatine Kinase CK-MB (CK-2) Rel Index Troponin T Albumin LDL Cholesterol Direct PTH Intact Salicylates Acetaminophen Crossmatch 02/27/19 02/27/19 02/27/19 04:35 13:15 18:02 WBC RBC Hgb Hct MCH MCHC RDW Lymph % (Auto) [place] % (Auto) Eos % (Auto) Lymph # [place] # Eos # Seg Neutrophils % Seg Neuts % (Manual) Lymphocytes % (Manual) Eosinophils % (Manual) Seg Neutrophils # Lymphocytes # (Manual) Eosinophils # (Manual) PT INR D-Dimer POC ABG pH 7.483 H POC ABG pCO2 POC ABG pO2 61 L ABG pO2 ABG HCO3 ABG Base Excess ABG Hemoglobin Oxyhemoglobin Sodium Potassium Chloride Carbon Dioxide BUN Creatinine Glucose POC Glucose 143 H 106 H Calcium Phosphorus ALT Alkaline Phosphatase Total Creatine Kinase CK-MB (CK-2) Rel Index Troponin T Albumin LDL Cholesterol Direct PTH Intact Salicylates Acetaminophen Crossmatch 02/28/19 02/28/19 02/28/19 05:50 11:59 17:52 WBC RBC Hgb Hct MCH MCHC RDW Lymph % (Auto) [place] % (Auto) Eos % (Auto) Lymph # [place] # Eos # Seg Neutrophils % Seg Neuts % (Manual) Lymphocytes % (Manual) Eosinophils % (Manual) Seg Neutrophils # Lymphocytes # (Manual) Eosinophils # (Manual) PT INR D-Dimer POC ABG pH POC ABG pCO2 POC ABG pO2 ABG pO2 ABG HCO3 ABG Base Excess ABG Hemoglobin Oxyhemoglobin Sodium Potassium Chloride Carbon Dioxide BUN Creatinine Glucose POC Glucose 134 H 128 H 142 H Calcium Phosphorus ALT Alkaline Phosphatase Total Creatine Kinase CK-MB (CK-2) Rel Index Troponin T Albumin LDL Cholesterol Direct PTH Intact Salicylates Acetaminophen Crossmatch 02/28/19 03/01/19 03/01/19 23:13 05:40 09:39 WBC RBC Hgb Hct MCH MCHC RDW Lymph % (Auto) [place] % (Auto) Eos % (Auto) Lymph # [place] # Eos # Seg Neutrophils % Seg Neuts % (Manual) Lymphocytes % (Manual) Eosinophils % (Manual) Seg Neutrophils # Lymphocytes # (Manual) Eosinophils # (Manual) PT 16.3 H INR 1.35 H D-Dimer POC ABG pH POC ABG pCO2 POC ABG pO2 ABG pO2 ABG HCO3 ABG Base Excess ABG Hemoglobin Oxyhemoglobin Sodium Potassium Chloride Carbon Dioxide BUN Creatinine Glucose POC Glucose 112 H 111 H Calcium Phosphorus ALT Alkaline Phosphatase Total Creatine Kinase CK-MB (CK-2) Rel Index Troponin T Albumin LDL Cholesterol Direct PTH Intact Salicylates Acetaminophen Crossmatch 03/01/19 03/01/19 03/01/19 11:56 13:54 17:59 WBC RBC Hgb Hct MCH MCHC RDW Lymph % (Auto) [place] % (Auto) Eos % (Auto) Lymph # [place] # Eos # Seg Neutrophils % Seg Neuts % (Manual) Lymphocytes % (Manual) Eosinophils % (Manual) Seg Neutrophils # Lymphocytes # (Manual) Eosinophils # (Manual) PT INR D-Dimer POC ABG pH POC ABG pCO2 POC ABG pO2 ABG pO2 ABG HCO3 ABG Base Excess ABG Hemoglobin Oxyhemoglobin Sodium Potassium Chloride Carbon Dioxide BUN 33 H Creatinine 2.8 H D Glucose 176 H POC Glucose 199 H 147 H Calcium Phosphorus ALT Alkaline Phosphatase Total Creatine Kinase CK-MB (CK-2) Rel Index Troponin T Albumin LDL Cholesterol Direct PTH Intact Salicylates Acetaminophen Crossmatch 08/12/19 08/12/19 08/12/19 05:15 05:15 05:15 WBC RBC 2.73 L Hgb 7.4 L Hct 23.0 L MCH 27 L MCHC RDW 19.9 H Lymph % (Auto) [place] % (Auto) 7.9 H Eos % (Auto) 7.6 H Lymph # 1.0 L [place] # Eos # 0.5 H Seg Neutrophils % Seg Neuts % (Manual) Lymphocytes % (Manual) Eosinophils % (Manual) Seg Neutrophils # Lymphocytes # (Manual) Eosinophils # (Manual) PT INR D-Dimer POC ABG pH POC ABG pCO2 POC ABG pO2 ABG pO2 ABG HCO3 ABG Base Excess ABG Hemoglobin Oxyhemoglobin Sodium Potassium Chloride Carbon Dioxide BUN 43 H Creatinine 3.2 H Glucose POC Glucose Calcium Phosphorus 2.30 L ALT Alkaline Phosphatase Total Creatine Kinase CK-MB (CK-2) Rel Index Troponin T Albumin LDL Cholesterol Direct PTH Intact 267.6 H Salicylates Acetaminophen Crossmatch 03/02/19 03/02/19 03/03/19 12:32 18:20 13:30 WBC RBC Hgb Hct MCH MCHC RDW Lymph % (Auto) [place] % (Auto) Eos % (Auto) Lymph # [place] # Eos # Seg Neutrophils % Seg Neuts % (Manual) Lymphocytes % (Manual) Eosinophils % (Manual) Seg Neutrophils # Lymphocytes # (Manual) Eosinophils # (Manual) PT INR D-Dimer POC ABG pH POC ABG pCO2 POC ABG pO2 ABG pO2 ABG HCO3 ABG Base Excess ABG Hemoglobin Oxyhemoglobin Sodium Potassium Chloride 97.3 L Carbon Dioxide BUN 26 H Creatinine 2.2 H Glucose 73 L POC Glucose 111 H 156 H Calcium Phosphorus ALT Alkaline Phosphatase Total Creatine Kinase CK-MB (CK-2) Rel Index Troponin T Albumin LDL Cholesterol Direct PTH Intact Salicylates Acetaminophen Crossmatch 03/04/19 03/04/19 03/04/19 00:02 05:37 05:40 WBC RBC 2.63 L Hgb 7.2 L Hct 22.2 L MCH MCHC RDW 20.2 H Lymph % (Auto) 10.5 L [place] % (Auto) Eos % (Auto) 4.6 H Lymph # 0.7 L [place] # Eos # Seg Neutrophils % 76.9 H Seg Neuts % (Manual) Lymphocytes % (Manual) Eosinophils % (Manual) Seg Neutrophils # Lymphocytes # (Manual) Eosinophils # (Manual) PT INR D-Dimer POC ABG pH POC ABG pCO2 POC ABG pO2 ABG pO2 ABG HCO3 ABG Base Excess ABG Hemoglobin Oxyhemoglobin Sodium Potassium Chloride Carbon Dioxide BUN Creatinine Glucose POC Glucose 136 H 123 H Calcium Phosphorus ALT Alkaline Phosphatase Total Creatine Kinase CK-MB (CK-2) Rel Index Troponin T Albumin LDL Cholesterol Direct PTH Intact Salicylates Acetaminophen Crossmatch 03/04/19 03/04/19 03/04/19 05:40 11:39 23:20 WBC RBC Hgb Hct MCH MCHC RDW Lymph % (Auto) [place] % (Auto) Eos % (Auto) Lymph # [place] # Eos # Seg Neutrophils % Seg Neuts % (Manual) Lymphocytes % (Manual) Eosinophils % (Manual) Seg Neutrophils # Lymphocytes # (Manual) Eosinophils # (Manual) PT INR D-Dimer POC ABG pH POC ABG pCO2 POC ABG pO2 ABG pO2 ABG HCO3 ABG Base Excess ABG Hemoglobin Oxyhemoglobin Sodium Potassium Chloride Carbon Dioxide BUN 34 H Creatinine 2.7 H Glucose 114 H POC Glucose 175 H 151 H Calcium Phosphorus ALT Alkaline Phosphatase Total Creatine Kinase CK-MB (CK-2) Rel Index Troponin T Albumin LDL Cholesterol Direct PTH Intact Salicylates Acetaminophen Crossmatch 03/05/19 03/05/19 03/05/19 05:37 12:08 17:11 WBC RBC Hgb Hct MCH MCHC RDW Lymph % (Auto) [place] % (Auto) Eos % (Auto) Lymph # [place] # Eos # Seg Neutrophils % Seg Neuts % (Manual) Lymphocytes % (Manual) Eosinophils % (Manual) Seg Neutrophils # Lymphocytes # (Manual) Eosinophils # (Manual) PT INR D-Dimer POC ABG pH POC ABG pCO2 POC ABG pO2 ABG pO2 ABG HCO3 ABG Base Excess ABG Hemoglobin Oxyhemoglobin Sodium Potassium Chloride Carbon Dioxide BUN Creatinine Glucose POC Glucose 134 H 135 H 135 H Calcium Phosphorus ALT Alkaline Phosphatase Total Creatine Kinase CK-MB (CK-2) Rel Index Troponin T Albumin LDL Cholesterol Direct PTH Intact Salicylates Acetaminophen Crossmatch 03/06/19 03/06/19 03/06/19 00:16 13:05 18:09 WBC RBC Hgb Hct MCH MCHC RDW Lymph % (Auto) [place] % (Auto) Eos % (Auto) Lymph # [place] # Eos # Seg Neutrophils % Seg Neuts % (Manual) Lymphocytes % (Manual) Eosinophils % (Manual) Seg Neutrophils # Lymphocytes # (Manual) Eosinophils # (Manual) PT INR D-Dimer POC ABG pH POC ABG pCO2 POC ABG pO2 ABG pO2 ABG HCO3 ABG Base Excess ABG Hemoglobin Oxyhemoglobin Sodium Potassium Chloride Carbon Dioxide BUN Creatinine Glucose POC Glucose 117 H 113 H 131 H Calcium Phosphorus ALT Alkaline Phosphatase Total Creatine Kinase CK-MB (CK-2) Rel Index Troponin T Albumin LDL Cholesterol Direct PTH Intact Salicylates Acetaminophen Crossmatch 03/07/19 03/08/19 03/08/19 05:25 05:33 16:00 WBC RBC 2.44 L Hgb 6.6 L Hct 20.8 L MCH 27 L MCHC RDW 19.2 H Lymph % (Auto) [place] % (Auto) Eos % (Auto) 8.6 H Lymph # 0.8 L [place] # Eos # 0.5 H Seg Neutrophils % 70.7 H Seg Neuts % (Manual) Lymphocytes % (Manual) Eosinophils % (Manual) Seg Neutrophils # Lymphocytes # (Manual) Eosinophils # (Manual) PT INR D-Dimer POC ABG pH POC ABG pCO2 POC ABG pO2 ABG pO2 ABG HCO3 ABG Base Excess ABG Hemoglobin Oxyhemoglobin Sodium Potassium Chloride Carbon Dioxide BUN Creatinine Glucose POC Glucose 106 H 108 H Calcium Phosphorus ALT Alkaline Phosphatase Total Creatine Kinase CK-MB (CK-2) Rel Index Troponin T Albumin LDL Cholesterol Direct PTH Intact Salicylates Acetaminophen Crossmatch 03/08/19 03/08/19 03/08/19 16:00 18:38 Unknown WBC RBC Hgb Hct MCH MCHC RDW Lymph % (Auto) [place] % (Auto) Eos % (Auto) Lymph # [place] # Eos # Seg Neutrophils % Seg Neuts % (Manual) Lymphocytes % (Manual) Eosinophils % (Manual) Seg Neutrophils # Lymphocytes # (Manual) Eosinophils # (Manual) PT INR D-Dimer POC ABG pH POC ABG pCO2 POC ABG pO2 ABG pO2 ABG HCO3 ABG Base Excess ABG Hemoglobin Oxyhemoglobin Sodium Potassium 5.4 H D Chloride Carbon Dioxide BUN 47 H Creatinine 2.6 H Glucose POC Glucose 123 H Calcium Phosphorus ALT < 5 L Alkaline Phosphatase Total Creatine Kinase CK-MB (CK-2) Rel Index Troponin T Albumin 2.2 L LDL Cholesterol Direct PTH Intact Salicylates Acetaminophen Crossmatch See Detail 03/09/19 03/09/19 03/09/19 10:48 12:28 13:53 WBC RBC 2.85 L Hgb 7.7 L Hct 24.2 L MCH 27 L MCHC RDW 18.7 H Lymph % (Auto) [place] % (Auto) Eos % (Auto) Lymph # [place] # Eos # Seg Neutrophils % Seg Neuts % (Manual) Lymphocytes % (Manual) Eosinophils % (Manual) Seg Neutrophils # Lymphocytes # (Manual) Eosinophils # (Manual) PT INR D-Dimer POC ABG pH POC ABG pCO2 POC ABG pO2 ABG pO2 ABG HCO3 30.5 H ABG Base Excess 5.6 H ABG Hemoglobin 8.1 L Oxyhemoglobin 93.8 L Sodium Potassium Chloride Carbon Dioxide BUN Creatinine Glucose POC Glucose 114 H Calcium Phosphorus ALT Alkaline Phosphatase Total Creatine Kinase CK-MB (CK-2) Rel Index Troponin T Albumin LDL Cholesterol Direct PTH Intact Salicylates Acetaminophen Crossmatch 03/09/19 03/09/19 03/10/19 17:58 23:53 12:01 WBC RBC Hgb Hct MCH MCHC RDW Lymph % (Auto) [place] % (Auto) Eos % (Auto) Lymph # [place] # Eos # Seg Neutrophils % Seg Neuts % (Manual) Lymphocytes % (Manual) Eosinophils % (Manual) Seg Neutrophils # Lymphocytes # (Manual) Eosinophils # (Manual) PT INR D-Dimer POC ABG pH POC ABG pCO2 POC ABG pO2 ABG pO2 ABG HCO3 ABG Base Excess ABG Hemoglobin Oxyhemoglobin Sodium Potassium Chloride Carbon Dioxide BUN Creatinine Glucose POC Glucose 108 H 128 H 144 H Calcium Phosphorus ALT Alkaline Phosphatase Total Creatine Kinase CK-MB (CK-2) Rel Index Troponin T Albumin LDL Cholesterol Direct PTH Intact Salicylates Acetaminophen Crossmatch 03/10/19 03/11/19 03/11/19 16:50 00:24 05:02 WBC RBC Hgb Hct MCH MCHC RDW Lymph % (Auto) [place] % (Auto) Eos % (Auto) Lymph # [place] # Eos # Seg Neutrophils % Seg Neuts % (Manual) Lymphocytes % (Manual) Eosinophils % (Manual) Seg Neutrophils # Lymphocytes # (Manual) Eosinophils # (Manual) PT INR D-Dimer POC ABG pH POC ABG pCO2 POC ABG pO2 ABG pO2 ABG HCO3 ABG Base Excess ABG Hemoglobin Oxyhemoglobin Sodium Potassium Chloride Carbon Dioxide BUN Creatinine Glucose POC Glucose 147 H 123 H 120 H Calcium Phosphorus ALT Alkaline Phosphatase Total Creatine Kinase CK-MB (CK-2) Rel Index Troponin T Albumin LDL Cholesterol Direct PTH Intact Salicylates Acetaminophen Crossmatch 03/11/19 03/11/19 03/11/19 11:56 12:20 18:37 WBC RBC Hgb Hct MCH MCHC RDW Lymph % (Auto) [place] % (Auto) Eos % (Auto) Lymph # [place] # Eos # Seg Neutrophils % Seg Neuts % (Manual) Lymphocytes % (Manual) Eosinophils % (Manual) Seg Neutrophils # Lymphocytes # (Manual) Eosinophils # (Manual) PT INR D-Dimer POC ABG pH POC ABG pCO2 POC ABG pO2 ABG pO2 ABG HCO3 ABG Base Excess ABG Hemoglobin Oxyhemoglobin Sodium Potassium 5.2 H Chloride Carbon Dioxide BUN Creatinine Glucose POC Glucose 123 H 125 H Calcium Phosphorus ALT Alkaline Phosphatase Total Creatine Kinase CK-MB (CK-2) Rel Index Troponin T Albumin LDL Cholesterol Direct PTH Intact Salicylates Acetaminophen Crossmatch 03/11/19 03/12/19 03/12/19 22:52 12:04 18:25 WBC RBC Hgb Hct MCH MCHC RDW Lymph % (Auto) [place] % (Auto) Eos % (Auto) Lymph # [place] # Eos # Seg Neutrophils % Seg Neuts % (Manual) Lymphocytes % (Manual) Eosinophils % (Manual) Seg Neutrophils # Lymphocytes # (Manual) Eosinophils # (Manual) PT INR D-Dimer POC ABG pH POC ABG pCO2 POC ABG pO2 ABG pO2 ABG HCO3 ABG Base Excess ABG Hemoglobin Oxyhemoglobin Sodium Potassium Chloride Carbon Dioxide BUN Creatinine Glucose POC Glucose 110 H 106 H 118 H Calcium Phosphorus ALT Alkaline Phosphatase Total Creatine Kinase CK-MB (CK-2) Rel Index Troponin T Albumin LDL Cholesterol Direct PTH Intact Salicylates Acetaminophen Crossmatch 03/12/19 03/13/19 03/13/19 23:36 04:38 04:38 WBC RBC 2.95 L Hgb 7.9 L Hct 24.9 L MCH 27 L MCHC RDW 19.9 H Lymph % (Auto) 11.1 L [place] % (Auto) 8.1 H Eos % (Auto) 4.4 H Lymph # 0.9 L [place] # Eos # Seg Neutrophils % 75.4 H Seg Neuts % (Manual) Lymphocytes % (Manual) Eosinophils % (Manual) Seg Neutrophils # Lymphocytes # (Manual) Eosinophils # (Manual) PT INR D-Dimer POC ABG pH POC ABG pCO2 POC ABG pO2 ABG pO2 ABG HCO3 ABG Base Excess ABG Hemoglobin Oxyhemoglobin Sodium 136 L Potassium 5.1 H Chloride 93.8 L Carbon Dioxide BUN 48 H Creatinine 2.7 H Glucose 102 H POC Glucose 115 H Calcium Phosphorus ALT < 5 L Alkaline Phosphatase 143 H Total Creatine Kinase CK-MB (CK-2) Rel Index Troponin T Albumin 2.5 L LDL Cholesterol Direct PTH Intact Salicylates Acetaminophen Crossmatch 03/13/19 03/13/19 03/13/19 05:33 13:37 18:03 WBC RBC Hgb Hct MCH MCHC RDW Lymph % (Auto) [place] % (Auto) Eos % (Auto) Lymph # [place] # Eos # Seg Neutrophils % Seg Neuts % (Manual) Lymphocytes % (Manual) Eosinophils % (Manual) Seg Neutrophils # Lymphocytes # (Manual) Eosinophils # (Manual) PT INR D-Dimer POC ABG pH POC ABG pCO2 POC ABG pO2 ABG pO2 ABG HCO3 ABG Base Excess ABG Hemoglobin Oxyhemoglobin Sodium Potassium Chloride Carbon Dioxide BUN Creatinine Glucose POC Glucose 140 H 150 H 158 H Calcium Phosphorus ALT Alkaline Phosphatase Total Creatine Kinase CK-MB (CK-2) Rel Index Troponin T Albumin LDL Cholesterol Direct PTH Intact Salicylates Acetaminophen Crossmatch 03/13/19 03/14/19 03/14/19 23:32 05:24 12:20 WBC RBC Hgb Hct MCH MCHC RDW Lymph % (Auto) [place] % (Auto) Eos % (Auto) Lymph # [place] # Eos # Seg Neutrophils % Seg Neuts % (Manual) Lymphocytes % (Manual) Eosinophils % (Manual) Seg Neutrophils # Lymphocytes # (Manual) Eosinophils # (Manual) PT INR D-Dimer POC ABG pH POC ABG pCO2 POC ABG pO2 ABG pO2 ABG HCO3 ABG Base Excess ABG Hemoglobin Oxyhemoglobin Sodium Potassium Chloride Carbon Dioxide BUN Creatinine Glucose POC Glucose 162 H 146 H 127 H Calcium Phosphorus ALT Alkaline Phosphatase Total Creatine Kinase CK-MB (CK-2) Rel Index Troponin T Albumin LDL Cholesterol Direct PTH Intact Salicylates Acetaminophen Crossmatch 03/14/19 03/14/19 03/15/19 18:05 23:57 04:38 WBC 12.8 H RBC 3.11 L Hgb 8.1 L Hct 26.5 L MCH 26 L MCHC 31 L RDW 19.7 H Lymph % (Auto) 4.4 L [place] % (Auto) 7.4 H Eos % (Auto) Lymph # 0.6 L [place] # 0.9 H Eos # Seg Neutrophils % 87.3 H Seg Neuts % (Manual) Lymphocytes % (Manual) Eosinophils % (Manual) Seg Neutrophils # 11.2 H Lymphocytes # (Manual) Eosinophils # (Manual) PT INR D-Dimer POC ABG pH POC ABG pCO2 POC ABG pO2 ABG pO2 ABG HCO3 ABG Base Excess ABG Hemoglobin Oxyhemoglobin Sodium Potassium Chloride Carbon Dioxide BUN Creatinine Glucose POC Glucose 142 H 155 H Calcium Phosphorus ALT Alkaline Phosphatase Total Creatine Kinase CK-MB (CK-2) Rel Index Troponin T Albumin LDL Cholesterol Direct PTH Intact Salicylates Acetaminophen Crossmatch 03/15/19 03/15/19 03/15/19 04:38 05:31 11:32 WBC RBC Hgb Hct MCH MCHC RDW Lymph % (Auto) [place] % (Auto) Eos % (Auto) Lymph # [place] # Eos # Seg Neutrophils % Seg Neuts % (Manual) Lymphocytes % (Manual) Eosinophils % (Manual) Seg Neutrophils # Lymphocytes # (Manual) Eosinophils # (Manual) PT INR D-Dimer POC ABG pH POC ABG pCO2 POC ABG pO2 ABG pO2 ABG HCO3 ABG Base Excess ABG Hemoglobin Oxyhemoglobin Sodium 135 L Potassium Chloride 91.9 L Carbon Dioxide BUN 54 H Creatinine 2.8 H Glucose 128 H POC Glucose 160 H 109 H Calcium 11.1 H Phosphorus ALT Alkaline Phosphatase 161 H Total Creatine Kinase CK-MB (CK-2) Rel Index Troponin T Albumin 2.3 L LDL Cholesterol Direct PTH Intact Salicylates Acetaminophen Crossmatch 03/15/19 03/15/19 03/16/19 18:15 23:41 05:40 WBC RBC Hgb Hct MCH MCHC RDW Lymph % (Auto) [place] % (Auto) Eos % (Auto) Lymph # [place] # Eos # Seg Neutrophils % Seg Neuts % (Manual) Lymphocytes % (Manual) Eosinophils % (Manual) Seg Neutrophils # Lymphocytes # (Manual) Eosinophils # (Manual) PT INR D-Dimer POC ABG pH POC ABG pCO2 POC ABG pO2 ABG pO2 ABG HCO3 ABG Base Excess ABG Hemoglobin Oxyhemoglobin Sodium Potassium Chloride Carbon Dioxide BUN Creatinine Glucose POC Glucose 151 H 110 H 163 H Calcium Phosphorus ALT Alkaline Phosphatase Total Creatine Kinase CK-MB (CK-2) Rel Index Troponin T Albumin LDL Cholesterol Direct PTH Intact Salicylates Acetaminophen Crossmatch 03/16/19 03/16/19 03/16/19 11:55 17:04 23:58 WBC RBC Hgb Hct MCH MCHC RDW Lymph % (Auto) [place] % (Auto) Eos % (Auto) Lymph # [place] # Eos # Seg Neutrophils % Seg Neuts % (Manual) Lymphocytes % (Manual) Eosinophils % (Manual) Seg Neutrophils # Lymphocytes # (Manual) Eosinophils # (Manual) PT INR D-Dimer POC ABG pH POC ABG pCO2 POC ABG pO2 ABG pO2 ABG HCO3 ABG Base Excess ABG Hemoglobin Oxyhemoglobin Sodium Potassium Chloride Carbon Dioxide BUN Creatinine Glucose POC Glucose 114 H 147 H 192 H Calcium Phosphorus ALT Alkaline Phosphatase Total Creatine Kinase CK-MB (CK-2) Rel Index Troponin T Albumin LDL Cholesterol Direct PTH Intact Salicylates Acetaminophen Crossmatch 03/17/19 03/17/19 03/17/19 05:53 11:17 17:01 WBC RBC Hgb Hct MCH MCHC RDW Lymph % (Auto) [place] % (Auto) Eos % (Auto) Lymph # [place] # Eos # Seg Neutrophils % Seg Neuts % (Manual) Lymphocytes % (Manual) Eosinophils % (Manual) Seg Neutrophils # Lymphocytes # (Manual) Eosinophils # (Manual) PT INR D-Dimer POC ABG pH POC ABG pCO2 POC ABG pO2 ABG pO2 ABG HCO3 ABG Base Excess ABG Hemoglobin Oxyhemoglobin Sodium Potassium Chloride Carbon Dioxide BUN Creatinine Glucose POC Glucose 151 H 161 H 152 H Calcium Phosphorus ALT Alkaline Phosphatase Total Creatine Kinase CK-MB (CK-2) Rel Index Troponin T Albumin LDL Cholesterol Direct PTH Intact Salicylates Acetaminophen Crossmatch 03/17/19 03/18/19 03/18/19 21:47 04:15 04:44 WBC RBC Hgb Hct MCH MCHC RDW Lymph % (Auto) [place] % (Auto) Eos % (Auto) Lymph # [place] # Eos # Seg Neutrophils % Seg Neuts % (Manual) Lymphocytes % (Manual) Eosinophils % (Manual) Seg Neutrophils # Lymphocytes # (Manual) Eosinophils # (Manual) PT INR D-Dimer POC ABG pH POC ABG pCO2 POC ABG pO2 ABG pO2 102.8 H ABG HCO3 28.3 H ABG Base Excess ABG Hemoglobin 10.4 L Oxyhemoglobin 94.5 L Sodium Potassium Chloride Carbon Dioxide BUN Creatinine Glucose POC Glucose 170 H 150 H Calcium Phosphorus ALT Alkaline Phosphatase Total Creatine Kinase CK-MB (CK-2) Rel Index Troponin T Albumin LDL Cholesterol Direct PTH Intact Salicylates Acetaminophen Crossmatch 03/18/19 03/18/19 03/18/19 06:38 12:12 17:47 WBC RBC Hgb Hct MCH MCHC RDW Lymph % (Auto) [place] % (Auto) Eos % (Auto) Lymph # [place] # Eos # Seg Neutrophils % Seg Neuts % (Manual) Lymphocytes % (Manual) Eosinophils % (Manual) Seg Neutrophils # Lymphocytes # (Manual) Eosinophils # (Manual) PT INR D-Dimer POC ABG pH 7.510 H POC ABG pCO2 POC ABG pO2 164 H ABG pO2 ABG HCO3 ABG Base Excess ABG Hemoglobin Oxyhemoglobin Sodium Potassium Chloride Carbon Dioxide BUN Creatinine Glucose POC Glucose 145 H 149 H Calcium Phosphorus ALT Alkaline Phosphatase Total Creatine Kinase CK-MB (CK-2) Rel Index Troponin T Albumin LDL Cholesterol Direct PTH Intact Salicylates Acetaminophen Crossmatch 03/18/19 03/19/19 03/19/19 23:25 01:11 04:23 WBC 15.6 H RBC 2.51 L Hgb 6.5 L Hct 21.6 L MCH 26 L MCHC 30 L RDW 19.8 H Lymph % (Auto) 6.0 L [place] % (Auto) Eos % (Auto) Lymph # 0.9 L [place] # 1.0 H Eos # Seg Neutrophils % 85.5 H Seg Neuts % (Manual) Lymphocytes % (Manual) Eosinophils % (Manual) Seg Neutrophils # 13.4 H Lymphocytes # (Manual) Eosinophils # (Manual) PT INR D-Dimer POC ABG pH POC ABG pCO2 POC ABG pO2 ABG pO2 78.3 L ABG HCO3 30.7 H ABG Base Excess 5.8 H ABG Hemoglobin 5.8 L Oxyhemoglobin 94.6 L Sodium Potassium Chloride Carbon Dioxide BUN Creatinine Glucose POC Glucose 190 H Calcium Phosphorus ALT Alkaline Phosphatase Total Creatine Kinase CK-MB (CK-2) Rel Index Troponin T Albumin LDL Cholesterol Direct PTH Intact Salicylates Acetaminophen Crossmatch 03/19/19 03/19/19 03/19/19 05:22 05:35 08:54 WBC RBC Hgb Hct MCH MCHC RDW Lymph % (Auto) [place] % (Auto) Eos % (Auto) Lymph # [place] # Eos # Seg Neutrophils % Seg Neuts % (Manual) Lymphocytes % (Manual) Eosinophils % (Manual) Seg Neutrophils # Lymphocytes # (Manual) Eosinophils # (Manual) PT INR D-Dimer POC ABG pH POC ABG pCO2 POC ABG pO2 ABG pO2 ABG HCO3 ABG Base Excess ABG Hemoglobin Oxyhemoglobin Sodium Potassium Chloride Carbon Dioxide BUN Creatinine Glucose POC Glucose 167 H Calcium Phosphorus ALT Alkaline Phosphatase Total Creatine Kinase CK-MB (CK-2) Rel Index Troponin T Albumin LDL Cholesterol Direct PTH Intact Salicylates Acetaminophen Crossmatch See Detail See Detail 03/19/19 03/19/19 03/19/19 12:36 17:02 23:25 WBC RBC Hgb Hct MCH MCHC RDW Lymph % (Auto) [place] % (Auto) Eos % (Auto) Lymph # [place] # Eos # Seg Neutrophils % Seg Neuts % (Manual) Lymphocytes % (Manual) Eosinophils % (Manual) Seg Neutrophils # Lymphocytes # (Manual) Eosinophils # (Manual) PT INR D-Dimer POC ABG pH POC ABG pCO2 POC ABG pO2 ABG pO2 ABG HCO3 ABG Base Excess ABG Hemoglobin Oxyhemoglobin Sodium Potassium Chloride Carbon Dioxide BUN Creatinine Glucose POC Glucose 167 H 135 H 136 H Calcium Phosphorus ALT Alkaline Phosphatase Total Creatine Kinase CK-MB (CK-2) Rel Index Troponin T Albumin LDL Cholesterol Direct PTH Intact Salicylates Acetaminophen Crossmatch 03/20/19 03/20/19 03/20/19 05:38 08:40 08:40 WBC RBC 2.61 L Hgb 7.1 L Hct 22.0 L MCH 27 L MCHC RDW 19.6 H Lymph % (Auto) 8.2 L [place] % (Auto) 8.3 H Eos % (Auto) 5.7 H Lymph # 0.8 L [place] # Eos # 0.5 H Seg Neutrophils % 77.3 H Seg Neuts % (Manual) Lymphocytes % (Manual) Eosinophils % (Manual) Seg Neutrophils # Lymphocytes # (Manual) Eosinophils # (Manual) PT INR D-Dimer POC ABG pH POC ABG pCO2 POC ABG pO2 ABG pO2 ABG HCO3 ABG Base Excess ABG Hemoglobin Oxyhemoglobin Sodium Potassium Chloride 95.9 L Carbon Dioxide BUN 69 H Creatinine 2.8 H Glucose 115 H POC Glucose 134 H Calcium 10.5 H Phosphorus ALT Alkaline Phosphatase Total Creatine Kinase CK-MB (CK-2) Rel Index Troponin T Albumin LDL Cholesterol Direct PTH Intact Salicylates Acetaminophen Crossmatch 03/20/19 03/20/19 03/20/19 12:13 18:04 23:49 WBC RBC Hgb Hct MCH MCHC RDW Lymph % (Auto) [place] % (Auto) Eos % (Auto) Lymph # [place] # Eos # Seg Neutrophils % Seg Neuts % (Manual) Lymphocytes % (Manual) Eosinophils % (Manual) Seg Neutrophils # Lymphocytes # (Manual) Eosinophils # (Manual) PT INR D-Dimer POC ABG pH POC ABG pCO2 POC ABG pO2 ABG pO2 ABG HCO3 ABG Base Excess ABG Hemoglobin Oxyhemoglobin Sodium Potassium Chloride Carbon Dioxide BUN Creatinine Glucose POC Glucose 144 H 165 H 172 H Calcium Phosphorus ALT Alkaline Phosphatase Total Creatine Kinase CK-MB (CK-2) Rel Index Troponin T Albumin LDL Cholesterol Direct PTH Intact Salicylates Acetaminophen Crossmatch 03/21/19 03/21/19 03/21/19 05:00 06:29 06:30 WBC RBC 2.72 L Hgb 7.4 L Hct 22.9 L MCH 27 L MCHC RDW 19.4 H Lymph % (Auto) [place] % (Auto) Eos % (Auto) Lymph # [place] # Eos # Seg Neutrophils % Seg Neuts % (Manual) 81.0 H Lymphocytes % (Manual) 8.0 L Eosinophils % (Manual) 8.0 H Seg Neutrophils # Lymphocytes # (Manual) 0.7 L Eosinophils # (Manual) 0.7 H PT INR D-Dimer POC ABG pH POC ABG pCO2 POC ABG pO2 ABG pO2 ABG HCO3 ABG Base Excess ABG Hemoglobin Oxyhemoglobin Sodium Potassium Chloride Carbon Dioxide 33 H BUN 43 H Creatinine 1.7 H Glucose 145 H POC Glucose 156 H Calcium Phosphorus ALT Alkaline Phosphatase 212 H Total Creatine Kinase CK-MB (CK-2) Rel Index Troponin T Albumin 2.2 L LDL Cholesterol Direct PTH Intact Salicylates Acetaminophen Crossmatch 03/21/19 03/21/19 03/22/19 12:02 18:07 00:21 WBC RBC Hgb Hct MCH MCHC RDW Lymph % (Auto) [place] % (Auto) Eos % (Auto) Lymph # [place] # Eos # Seg Neutrophils % Seg Neuts % (Manual) Lymphocytes % (Manual) Eosinophils % (Manual) Seg Neutrophils # Lymphocytes # (Manual) Eosinophils # (Manual) PT INR D-Dimer POC ABG pH POC ABG pCO2 POC ABG pO2 ABG pO2 ABG HCO3 ABG Base Excess ABG Hemoglobin Oxyhemoglobin Sodium Potassium Chloride Carbon Dioxide BUN Creatinine Glucose POC Glucose 163 H 144 H 153 H Calcium Phosphorus ALT Alkaline Phosphatase Total Creatine Kinase CK-MB (CK-2) Rel Index Troponin T Albumin LDL Cholesterol Direct PTH Intact Salicylates Acetaminophen Crossmatch 03/22/19 03/22/19 03/22/19 05:23 05:23 05:31 WBC RBC 2.58 L Hgb 7.1 L Hct 21.8 L MCH 27 L MCHC RDW 19.2 H Lymph % (Auto) [place] % (Auto) Eos % (Auto) Lymph # [place] # Eos # Seg Neutrophils % Seg Neuts % (Manual) Lymphocytes % (Manual) Eosinophils % (Manual) Seg Neutrophils # Lymphocytes # (Manual) Eosinophils # (Manual) PT INR D-Dimer POC ABG pH POC ABG pCO2 POC ABG pO2 ABG pO2 ABG HCO3 ABG Base Excess ABG Hemoglobin Oxyhemoglobin Sodium 147 H Potassium Chloride Carbon Dioxide BUN 68 H Creatinine 2.5 H Glucose POC Glucose 116 H Calcium 10.3 H Phosphorus ALT Alkaline Phosphatase Total Creatine Kinase CK-MB (CK-2) Rel Index Troponin T Albumin LDL Cholesterol Direct PTH Intact Salicylates Acetaminophen Crossmatch 03/22/19 03/22/19 03/22/19 08:48 12:37 17:35 WBC RBC Hgb Hct MCH MCHC RDW Lymph % (Auto) [place] % (Auto) Eos % (Auto) Lymph # [place] # Eos # Seg Neutrophils % Seg Neuts % (Manual) Lymphocytes % (Manual) Eosinophils % (Manual) Seg Neutrophils # Lymphocytes # (Manual) Eosinophils # (Manual) PT INR D-Dimer POC ABG pH POC ABG pCO2 POC ABG pO2 ABG pO2 ABG HCO3 ABG Base Excess ABG Hemoglobin Oxyhemoglobin Sodium Potassium Chloride Carbon Dioxide BUN Creatinine Glucose POC Glucose 143 H 155 H Calcium Phosphorus ALT Alkaline Phosphatase Total Creatine Kinase CK-MB (CK-2) Rel Index Troponin T Albumin LDL Cholesterol Direct PTH Intact Salicylates Acetaminophen Crossmatch See Detail 03/23/19 03/23/19 03/23/19 00:07 04:00 04:00 WBC 11.2 H RBC 2.32 L Hgb 6.4 L Hct 19.7 L* MCH MCHC RDW 19.4 H Lymph % (Auto) [place] % (Auto) Eos % (Auto) Lymph # [place] # Eos # Seg Neutrophils % Seg Neuts % (Manual) Lymphocytes % (Manual) Eosinophils % (Manual) Seg Neutrophils # Lymphocytes # (Manual) Eosinophils # (Manual) PT INR D-Dimer POC ABG pH POC ABG pCO2 POC ABG pO2 ABG pO2 ABG HCO3 ABG Base Excess ABG Hemoglobin Oxyhemoglobin Sodium 147 H Potassium 5.2 H Chloride Carbon Dioxide BUN 86 H Creatinine 3.2 H Glucose 128 H POC Glucose 135 H Calcium 10.3 H Phosphorus ALT Alkaline Phosphatase Total Creatine Kinase CK-MB (CK-2) Rel Index Troponin T Albumin LDL Cholesterol Direct PTH Intact Salicylates Acetaminophen Crossmatch 03/23/19 03/23/19 03/23/19 05:21 11:36 11:36 WBC RBC Hgb 7.9 L Hct 25.0 L MCH MCHC RDW Lymph % (Auto) [place] % (Auto) Eos % (Auto) Lymph # [place] # Eos # Seg Neutrophils % Seg Neuts % (Manual) Lymphocytes % (Manual) Eosinophils % (Manual) Seg Neutrophils # Lymphocytes # (Manual) Eosinophils # (Manual) PT INR D-Dimer POC ABG pH POC ABG pCO2 POC ABG pO2 ABG pO2 ABG HCO3 ABG Base Excess ABG Hemoglobin Oxyhemoglobin Sodium Potassium Chloride Carbon Dioxide BUN Creatinine Glucose POC Glucose 132 H 147 H Calcium Phosphorus ALT Alkaline Phosphatase Total Creatine Kinase CK-MB (CK-2) Rel Index Troponin T Albumin LDL Cholesterol Direct PTH Intact Salicylates Acetaminophen Crossmatch 03/23/19 17:31 WBC RBC Hgb Hct MCH MCHC RDW Lymph % (Auto) [place] % (Auto) Eos % (Auto) Lymph # [place] # Eos # Seg Neutrophils % Seg Neuts % (Manual) Lymphocytes % (Manual) Eosinophils % (Manual) Seg Neutrophils # Lymphocytes # (Manual) Eosinophils # (Manual) PT INR D-Dimer POC ABG pH POC ABG pCO2 POC ABG pO2 ABG pO2 ABG HCO3 ABG Base Excess ABG Hemoglobin Oxyhemoglobin Sodium Potassium Chloride Carbon Dioxide BUN Creatinine Glucose POC Glucose 182 H Calcium Phosphorus ALT Alkaline Phosphatase Total Creatine Kinase CK-MB (CK-2) Rel Index Troponin T Albumin LDL Cholesterol Direct PTH Intact Salicylates Acetaminophen Crossmatch Chest x-ray: report reviewed, image reviewed (KEON infiltrate on a background of pulm edema)
--- NOTE | 2019-03-24 02:46 | XRay Report ---
CHEST 1 VIEW 03/24/2019 2:05 AM INDICATION / CLINICAL INFORMATION: follow up respiratory failure. COMPARISON: Chest x-ray 03/23/2019 FINDINGS: SUPPORT DEVICES: Tracheostomy tube and left internal jugular central line again project in expected p osition. Leadless cardiac pacemaker, unchanged. HEART / MEDIASTINUM: Moderate cardiomegaly, unchanged LUNGS / PLEURA: Small bilateral pleural effusions and patchy bilateral parenchymal disease most prono unced within left upper lobe, unchanged. No pneumothorax. ADDITIONAL FINDINGS: No significant additional findings. IMPRESSION: 1. Stable chest with bilateral pleural-parenchymal disease Signer Name: Carlos Hanley MD Signed: 03/24/2019 2:42 AM Workstation Name: [id number]
[2019-03-24] MEDS: INSULIN REGULAR, HUMAN 100 UNITS/1 ML SUB-Q SCH ×4 (03:49→18:00)
[2019-03-24 04:59] LABS: Hematocrit 25.9 % (35.5-45.6); Hemoglobin 8.3 gm/dl (11.8-15.2); Mean Corpuscular HGB Conc 32 % (32-34); Mean Corpuscular Volume 85 fl (84-94); Platelet Count 330 K/mm3 (140-440); Red Blood Count 3.05 M/mm3 (3.65-5.03); Red Cell Distribution Width 18.7 % (13.2-15.2)
[2019-03-24 05:12] LABS: Calcium 10.2 mg/dL (8.4-10.2)
[2019-03-24] MEDS: IPRATROPIUM/ALBUTEROL SULFATE 3 ML AMPUL.NEB IH SCH ×3 (07:59→21:25)
[2019-03-24] MEDS: FAMOTIDINE 20 MG TAB PO SCH (10:53)
[2019-03-24] MEDS: SERTRALINE 100 MG TAB PO SCH (10:53)
[2019-03-24] MEDS: HEPARIN 5,000 UNIT/1 ML VIAL SUB-Q SCH ×2 (10:53→22:15)
[2019-03-24] MEDS: SULFAMETHOXAZOLE/TRIMETHOPRIM 200-40 MG/5 ML ORAL LIQD 30 ML PO SCH (10:53)
[2019-03-24] MEDS: risperiDONE 1 MG TAB PO SCH (10:53)
--- NOTE | 2019-03-24 11:12 | Progress Note ---
Assessment and Plan Assessment: * End stage renal disease (outpatient TTS schedule) * Acute hypoxic respiratory failure s/p trach * KEON pneumonia --Sputum cx: MDR Acinetobacter * Cardiomyopathy - EF 35-40% * Atrial fibrillation * History of CVA * Anemia secondary to ESRD * Secondary hyperparathyroidism Plan * Continue HD via [facility] AVG; MWF schedule for now * UF as tolerated * Abx per ID/primary team - on Bactrim * Nutrition per primary team * Dose medications for renal function * Epogen TID prn - increase dose to 20k TIW Subjective Date of service: 03/24/19 Principal diagnosis: respiratory failure Interval history: No acute events overnight Objective - Vital Signs Vital signs: Vital Signs - 12hr 03/23/19 03/24/19 03/24/19 23:18 00:00 00:35 Temperature 98.1 F Pulse Rate 107 H Pulse Rate [ Anterior Bilateral Throughout] Pulse Rate [ 109 H From Monitor] Pulse Rate [ Throughout] Respiratory 25 H Rate Respiratory Rate [Anterior Bilateral Throughout] Respiratory Rate [ Throughout] Blood Pressure 128/72 O2 Sat by Pulse 99 Oximetry O2 Sat by Pulse 98 Oximetry [ Assessment] 03/24/19 03/24/19 03/24/19 01:00 02:00 03:00 Temperature Pulse Rate 102 H 106 H 112 H Pulse Rate [ Anterior Bilateral Throughout] Pulse Rate [ From Monitor] Pulse Rate [ Throughout] Respiratory 24 24 23 Rate Respiratory Rate [Anterior Bilateral Throughout] Respiratory Rate [ Throughout] Blood Pressure 127/66 120/72 120/67 O2 Sat by Pulse 99 98 99 Oximetry O2 Sat by Pulse Oximetry [ Assessment] 03/24/19 03/24/19 03/24/19 03:46 04:00 05:00 Temperature 99.8 F H Pulse Rate 107 H 110 H Pulse Rate [ Anterior Bilateral Throughout] Pulse Rate [ 107 H From Monitor] Pulse Rate [ Throughout] Respiratory 19 25 H Rate Respiratory Rate [Anterior Bilateral Throughout] Respiratory Rate [ Throughout] Blood Pressure 112/66 128/73 O2 Sat by Pulse 99 100 Oximetry O2 Sat by Pulse Oximetry [ Assessment] 03/24/19 03/24/19 03/24/19 06:00 07:00 07:46 Temperature 97.4 F L Pulse Rate 118 H 112 H Pulse Rate [ Anterior Bilateral Throughout] Pulse Rate [ From Monitor] Pulse Rate [ Throughout] Respiratory 28 H 24 Rate Respiratory Rate [Anterior Bilateral Throughout] Respiratory Rate [ Throughout] Blood Pressure 120/75 115/61 O2 Sat by Pulse 99 97 Oximetry O2 Sat by Pulse Oximetry [ Assessment] 03/24/19 03/24/19 03/24/19 07:59 08:00 08:19 Temperature Pulse Rate 118 H Pulse Rate [ 118 H Anterior Bilateral Throughout] Pulse Rate [ From Monitor] Pulse Rate [ 112 H Throughout] Respiratory 26 H Rate Respiratory 18 Rate [Anterior Bilateral Throughout] Respiratory 18 Rate [ Throughout] Blood Pressure 123/71 O2 Sat by Pulse 100 99 Oximetry O2 Sat by Pulse 100 Oximetry [ Assessment] 03/24/19 09:00 Temperature Pulse Rate 100 H Pulse Rate [ Anterior Bilateral Throughout] Pulse Rate [ From Monitor] Pulse Rate [ Throughout] Respiratory 17 Rate Respiratory Rate [Anterior Bilateral Throughout] Respiratory Rate [ Throughout] Blood Pressure 106/61 O2 Sat by Pulse 100 Oximetry O2 Sat by Pulse Oximetry [ Assessment] - General Appearance General appearance: frail EENT: ATNC Neck: other (trach in place) Respiratory: Present: Decreased Breath Sounds Cardiology: regular, S1S2 Gastrointestinal: other (ostomy, PEG) Musculoskeletal: other (no edema) Psychiatric: cooperative - Lab 03/24/19 04:20 03/24/19 04:20 Most recent lab results ABG pH 7.424 pH Units (7.350-7.450) 03/19/19 04:23 ABG pCO2 48.0 mm Hg 03/19/19 04:23 ABG pO2 78.3 mm Hg (80.0-90.0) L 03/19/19 04:23 ABG HCO3 30.7 mmol/L (20.0-26.0) H 03/19/19 04:23 ABG O2 Saturation 97.0 % (95.0-99.0) 03/19/19 04:23 Calcium 10.2 mg/dL (8.4-10.2) 03/24/19 04:20 Phosphorus 3.10 mg/dL (2.5-4.5) 03/15/19 04:38 Magnesium 2.00 mg/dL (1.7-2.3) 03/21/19 05:00 Medications & Allergies - Medications Allergies/Adverse Reactions: Allergies haloperidol [From Haldol] Adverse Reaction (Verified 03/13/18 12:10) Unknown haloperidol lactate [From Haldol] Adverse Reaction (Verified 03/13/18 12:10) Unknown Home Medications: Home Medications Medication Instructions Recorded Confirmed Last Taken Type risperiDONE [RisperDAL] 1 mg PO QAM 03/13/18 02/21/19 Unknown History Sertraline [Zoloft] 100 mg PO QDAY 08/26/18 02/21/19 Unknown History Polyethylene Glycol 3350 [Miralax 17 gm PO QDAY #30 packet 11/05/18 02/21/19 Unknown Rx 3350] Aspirin EC [Halfprin EC] 81 mg PO DAILY #30 11/19/18 02/21/19 Unknown Rx Docusate Sodium [Colace CAP] 100 mg PO BID #60 11/19/18 02/21/19 Unknown Rx Folic Acid [Folvite] 1 mg PO DAILY #30 tab 11/19/18 02/21/19 Unknown Rx Famotidine [Pepcid] 20 mg PO DAILY tablet 12/08/18 02/21/19 Unknown Rx Gabapentin [Neurontin] 100 mg PO QHS capsule 12/08/18 02/21/19 Unknown Rx Metoprolol [Lopressor TAB] 50 mg PO BID 30 Days tablet 12/08/18 02/21/19 Unknown Rx Sevelamer Carbonate [Renvela] 800 mg PO TIDWM tablet 12/08/18 02/21/19 Unknown Rx hydrALAZINE [Apresoline TAB] 100 mg PO Q8HR #120 tablet 12/08/18 02/21/19 Unknown Rx Acetaminophen [Acetaminophen TAB] 650 mg PO Q12H PRN 12/15/18 02/21/19 Unknown History Glucagon,Human Recombinant 1 mg IJ Q15MIN PRN 12/15/18 02/21/19 Unknown History [Glucagon Emergency Kit] Insulin Aspart [NovoLOG 100 See Protocol SQ QWEEK 12/15/18 02/21/19 Unknown History UNITS/ML VIAL] Active Medications: Generic Name Dose Route Start Last Admin Trade Name Freq PRN Reason Stop Dose Admin Acetaminophen 650 mg 02/21/19 22:19 03/18/19 04:53 Tylenol PO 650 mg Q4H PRN Administration Pain MILD(1-3)/Fever >100.5/HILL Albuterol/Ipratropium 1 ampul 02/24/19 20:00 03/24/19 07:59 Duoneb *Not For Prn Use* IH 1 ampul TIDRT SANCHEZ Administration Lipase/Protease/Amylase 1 each 03/05/19 14:04 Pancrejewel Barrientos 10,500 Unit FEEDTUBE PRN PRN For Clogged Feeding Tube Dextrose 50 ml 02/21/19 22:22 03/03/19 17:37 D50w (25gm) Syringe IV 50 ml PRN PRN Administration Hypoglycemia Epoetin Solitario 10,000 unit 03/18/19 16:13 03/23/19 18:11 Procrit SUB-Q 10,000 unit UMA PRN Administration anemia Famotidine 20 mg 02/23/19 10:00 03/24/19 10:53 Pepcid PO 20 mg DAILY SANCHEZ Administration Heparin Sodium (Porcine) 5,000 unit 03/04/19 22:00 03/24/19 10:53 Heparin SUB-Q 5,000 unit Q12HR SANCHEZ Administration Hydrophilic Ointment 1 applic 02/21/19 18:24 03/05/19 08:16 Vaseline Lip Therapy TP 1 applic Q2HR PRN Administration Dry Lips Sodium Chloride 100 mls @ 999 mls/hr 02/26/19 09:00 Nacl 0.9% IV UMA PRN Hypotension Norepinephrine 8 mg/ Sodium 250 mls @ 3.75 mls/hr 03/18/19 13:00 03/19/19 09:17 Chloride IV 0 mcg/min TITR SANCHEZ 0 mls/hr Titration Protocol 2 MCG/MIN Insulin Human Regular 0 units 02/26/19 12:00 03/24/19 06:09 Humulin R SUB-Q Not Given Q6HR [facility] Protocol Metoprolol Tartrate 2.5 mg 02/28/19 12:06 03/15/19 05:15 Lopressor IV 2.5 mg Q4HR PRN Administration Tachycardia Multi-Ingred Cream/Lotion/Oil/Oint 1 applic 02/21/19 18:24 Artificial Tears Ophth Oint OU Q4HR PRN Dry Eye(s) Ondansetron HCl 4 mg 02/21/19 22:19 03/12/19 21:39 Zofran IV 4 mg Q8H PRN Administration Nausea And Vomiting Risperidone 1 mg 02/25/19 13:00 03/24/19 10:53 Risperdal PO 1 mg DAILY SANCHEZ Administration Scopolamine 1 each 03/13/19 04:00 03/22/19 03:56 Transderm-Scop TD 1 each Q3D SANCHEZ Administration Sertraline HCl 100 mg 02/25/19 13:00 03/24/19 10:53 Zoloft PO 100 mg DAILY SANCHEZ Administration Simple Syrup 15 ml 03/05/19 14:04 Simple Syrup FEEDTUBE PRN PRN Hypoglycemia Simple Syrup 30 ml 03/05/19 14:04 Simple Syrup FEEDTUBE PRN PRN Hypoglycemia Sodium Bicarbonate 325 mg 03/05/19 14:04 Sodium Bicarbonate FEEDTUBE PRN PRN For Clogged Feeding Tube Sodium Chloride 10 ml 02/22/19 10:00 03/24/19 10:54 Sodium Chloride Flush Syringe 10 Ml IV 10 ml BID SANCHEZ Administration Sodium Chloride 10 ml 02/21/19 22:19 02/24/19 22:00 Sodium Chloride Flush Syringe 10 Ml IV 10 ml PRN PRN Administration LINE FLUSH Tramadol HCl 50 mg 03/05/19 10:08 03/18/19 04:38 Ultram PO 50 mg Q6H PRN Administration Pain, Moderate (4-6) Trimethoprim/Sulfamethoxazole 160 mg 03/19/19 15:00 03/24/19 10:53 Bactrim 200-40 Mg/5 Ml PO 03/28/19 23:59 160 mg Q24HR SANCHEZ Administration
--- NOTE | 2019-03-24 12:30 | Progress Note ---
Assessment and Plan Assessment and plan: Acute respiratory failure on mechanical ventilator >96 hrs Extubated ; history of tracheostomy on T piece Current management , nebulizers, Currently on trach/peg placed on 03/03. Now off vent, cont oxygen supplement, improving, on t piece, nebulizers, pulmonary critical following acute on chronic systolic CHF/ Acute pulmonary edema, HD per schedule Dilated CMP, EF 35-40% Continue diuresis, supportive care Acute metabolic encephalopathy, resolved, has baseline Dementia. --ESRD on hemodialysis per schedule nephrology following --Bilateral pleural effusions improved with HD --Permanent atrial fibrillation and flutter and hypercoaguable state Not on anticoagulation because of anemia thrombocytopenia rate control meds optimized --Diabetes mellitus type 2 Accu-Chek sliding scale coverage Insulin as needed --NSTEMI type 2 , Cardiology following --Schizophrenia:stable --Legally blind, supportive care --hypertension, Monitor BP,'s adjust medications as needed --Hypokalemia; corrected --Pulmonary hypertension; continue current management --Dysphagia s/p PEG tube; PEG tubes per protocol --Sacral decub ulcer; Wound care --Severe malnutrition /hypoalbuminemia with FTT: 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, 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 inpatient hospice was recommended, but family is not agreeable at this time. family meeting and ethic consult has needed The high probability of a clinically significant, sudden or life threatening deterioration of the [pulmonary, neuro, renal] system(s) required my full and direct attention, intervention and personal management. The aggregate critical care time was [32] minutes. This time is in addition to time spent performing reported procedures but includes the following: [x] Data Review and interpretation [x] Patient assessment and monitoring of vital signs [x] Documentation [x] Medication orders and management History Interval history: Patient is 63-year-old -[place] male patient from [facility] with multiple co-morbidities including blindness, CVA, CHF, PPM/ICD, loop recorder since 2012 that is MRI compatible, IDDM type 2, sepsis left foot ulcer, afib, ESRD with complications on HD TTS, hypertension, AOCD and GERD who presented to the ED with hypotensive after intubation in the emergency room. diagnosed with fluid overload, pleural effusion. Patient has had recurrent admission in the hospital for similar reason and was recently discharged from the hospital following treatment of Severe Sepsis due to Necrotizing Unstagable sacral decubitus ulcer with ostemomylitis, has received multiple courses of broad spectrum abx. Acute hypoxic respiratory failure, status post intubation and ventilatory support, now off vent, on T-piece Hospitalist Physical - Constitutional Vitals: Temp Pulse Resp BP Pulse Ox 98.0 F 117 H 16 113/72 99 03/24/19 12:00 03/24/19 11:00 03/24/19 11:00 03/24/19 11:00 03/24/19 11:00 General appearance: Present: no acute distress, well-nourished, other (tracheostomy on T piece) - EENT Eyes: Present: PERRL, EOM intact ENT: hearing intact, clear oral mucosa, dentition normal - Neck Neck: Present: supple, normal ROM - Respiratory Respiratory effort: normal Respiratory: bilateral: CTA - Cardiovascular Rhythm: regular Heart Sounds: Present: S1 & S2. Absent: gallop, rub - Extremities Extremities: no ischemia, No edema, Full ROM - Abdominal General gastrointestinal: soft, non-tender, non-distended, normal bowel sounds - Integumentary Integumentary: Present: clear, warm, dry - Neurologic Neurologic: CNII-XII intact, moves all extremities Results - Labs CBC & Chem 7: 03/24/19 04:20 03/24/19 04:20 Labs: Laboratory Last Values WBC 12.2 K/mm3 (4.5-11.0) H 03/24/19 04:20 RBC 3.05 M/mm3 (3.65-5.03) L 03/24/19 04:20 Hgb 8.3 gm/dl (11.8-15.2) L 03/24/19 04:20 Hct 25.9 % (35.5-45.6) L 03/24/19 04:20 MCV 85 fl (84-94) 03/24/19 04:20 MCH 27 pg (28-32) L 03/24/19 04:20 MCHC 32 % (32-34) 03/24/19 04:20 RDW 18.7 % (13.2-15.2) H 03/24/19 04:20 Plt Count 330 K/mm3 (140-440) 03/24/19 04:20 Lymph % (Auto) 8.2 % (13.4-35.0) L 03/20/19 08:40 Slope % (Auto) 8.3 % (0.0-7.3) H 03/20/19 08:40 Eos % (Auto) 5.7 % (0.0-4.3) H 03/20/19 08:40 Baso % (Auto) 0.5 % (0.0-1.8) 03/20/19 08:40 Lymph # 0.8 K/mm3 (1.2-5.4) L 03/20/19 08:40 Slope # 0.8 K/mm3 (0.0-0.8) 03/20/19 08:40 Eos # 0.5 K/mm3 (0.0-0.4) H 03/20/19 08:40 Baso # 0.0 K/mm3 (0.0-0.1) 03/20/19 08:40 Add Manual Diff Complete 03/21/19 06:30 Total Counted 100 03/21/19 06:30 Seg Neutrophils % 77.3 % (40.0-70.0) H 03/20/19 08:40 Seg Neuts % (Manual) 81.0 % (40.0-70.0) H 03/21/19 06:30 0 % 03/21/19 06:30 8.0 % (13.4-35.0) L 03/21/19 06:30 Reactive Lymphs % (Man) 0 % 03/21/19 06:30 1.0 % (0.0-7.3) 03/21/19 06:30 8.0 % (0.0-4.3) H 03/21/19 06:30 1.0 % (0.0-1.8) 03/21/19 06:30 1.0 % 03/21/19 06:30 0 % 03/21/19 06:30 0 % 03/21/19 06:30 0 % 03/21/19 06:30 Nucleated RBC % Not Reportable 03/21/19 06:30 Seg Neutrophils # 7.3 K/mm3 (1.8-7.7) 03/20/19 08:40 Seg Neutrophils # Man 6.7 K/mm3 (1.8-7.7) 03/21/19 06:30 Band Neutrophils # 0.0 K/mm3 03/21/19 06:30 0.7 K/mm3 (1.2-5.4) L 03/21/19 06:30 Abs React Lymphs (Man) 0.0 K/mm3 03/21/19 06:30 0.1 K/mm3 (0.0-0.8) 03/21/19 06:30 0.7 K/mm3 (0.0-0.4) H 03/21/19 06:30 0.1 K/mm3 (0.0-0.1) 03/21/19 06:30 0.1 K/mm3 03/21/19 06:30 0.0 K/mm3 03/21/19 06:30 0.0 K/mm3 03/21/19 06:30 Blast Cells # 0.0 K/mm3 03/21/19 06:30 WBC Morphology Not Reportable 03/21/19 06:30 Hypersegmented Neuts Not Reportable 03/21/19 06:30 Hyposegmented Neuts Not Reportable 03/21/19 06:30 Hypogranular Neuts Not Reportable 03/21/19 06:30 Not Reportable 03/21/19 06:30 Not Reportable 03/21/19 06:30 Not Reportable 03/21/19 06:30 Not Reportable 03/21/19 06:30 Not Reportable 03/21/19 06:30 Not Reportable 03/21/19 06:30 Consistent w auto 03/21/19 06:30 Not Reportable 03/21/19 06:30 Plt Clumps, EDTA Not Reportable 03/21/19 06:30 Not Reportable 03/21/19 06:30 Not Reportable 03/21/19 06:30 Not Reportable 03/21/19 06:30 Plt Morphology Comment Not Reportable 03/21/19 06:30 RBC Morphology Not Reportable 03/21/19 06:30 Dimorphic RBCs Not Reportable 03/21/19 06:30 Not Reportable 03/21/19 06:30 Few 03/21/19 06:30 Few 03/21/19 06:30 Few 03/21/19 06:30 Not Reportable 03/21/19 06:30 Not Reportable 03/21/19 06:30 Not Reportable 03/21/19 06:30 Not Reportable 03/21/19 06:30 Not Reportable 03/21/19 06:30 1+ 03/21/19 06:30 Not Reportable 03/21/19 06:30 Few 03/21/19 06:30 Not Reportable 03/21/19 06:30 Not Reportable 03/21/19 06:30 Not Reportable 03/21/19 06:30 Not Reportable 03/21/19 06:30 Not Reportable 03/21/19 06:30 Not Reportable 03/21/19 06:30 Not Reportable 03/21/19 06:30 Acanthocytes (Spur) Not Reportable 03/21/19 06:30 Rouleaux Not Reportable 03/21/19 06:30 Not Reportable 03/21/19 06:30 Not Reportable 03/21/19 06:30 Not Reportable 03/21/19 06:30 Not Reportable 03/21/19 06:30 Hem Pathologist Commnt No 03/21/19 06:30 PT 16.3 Sec. (12.2-14.9) H 03/01/19 09:39 INR 1.35 (0.87-1.13) H 03/01/19 09:39 APTT 33.7 Sec. (24.2-36.6) 02/21/19 18:30 2987.82 ng/mlDDU (0-234) H 02/22/19 05:54 POC ABG pH 7.510 (7.35-7.45) H 03/18/19 06:38 ABG pH 7.424 pH Units (7.350-7.450) 03/19/19 04:23 POC ABG pCO2 38.9 (35-45) 03/18/19 06:38 ABG pCO2 48.0 mm Hg 03/19/19 04:23 POC ABG pO2 164 (80-105) H 03/18/19 06:38 ABG pO2 78.3 mm Hg (80.0-90.0) L 03/19/19 04:23 POC ABG HCO3 31.0 (22-26 mml/L) 03/18/19 06:38 ABG HCO3 30.7 mmol/L (20.0-26.0) H 03/19/19 04:23 POC ABG Total CO2 32 (23-27mmol/L) 03/18/19 06:38 POC ABG O2 Sat 100 03/18/19 06:38 ABG O2 Saturation 97.0 % (95.0-99.0) 03/19/19 04:23 ABG O2 Content 7.9 (0.0-44) 03/19/19 04:23 POC ABG Base Excess 8 ((-2) - (+3)mmol/L) 03/18/19 06:38 ABG Base Excess 5.8 mmol/L (-2.0-3.0) H 03/19/19 04:23 ABG Hemoglobin 5.8 gm/dl (14.0-18.0) L 03/19/19 04:23 ABG Carboxyhemoglobin 2.0 % (0.0-5.0) 03/19/19 04:23 ABG Methemoglobin 0.4 % (0.0-1.5) 03/19/19 04:23 94.6 % (95.0-99.0) L 03/19/19 04:23 35 % 03/19/19 04:23 Sodium 139 mmol/L (137-145) D 03/24/19 04:20 Potassium 4.7 mmol/L (3.6-5.0) 03/24/19 04:20 Chloride 94.8 mmol/L (98-107) L 03/24/19 04:20 Carbon Dioxide 32 mmol/L (22-30) H 03/24/19 04:20 17 mmol/L 03/24/19 04:20 BUN 53 mg/dL (9-20) H 03/24/19 04:20 2.3 mg/dL (0.8-1.5) H 03/24/19 04:20 Estimated GFR 35 ml/min 03/24/19 04:20 23 % 03/24/19 04:20 Glucose 97 mg/dL (75-100) 03/24/19 04:20 POC Glucose 163 (70-105) H 03/24/19 11:59 Lactic Acid 1.00 mmol/L (0.7-2.0) 02/21/19 20:58 Calcium 10.2 mg/dL (8.4-10.2) 03/24/19 04:20 Phosphorus 3.10 mg/dL (2.5-4.5) 03/15/19 04:38 Magnesium 2.00 mg/dL (1.7-2.3) 03/21/19 05:00 0.30 mg/dL (0.1-1.2) 03/21/19 05:00 AST 23 units/L (5-40) 03/21/19 05:00 ALT 18 units/L (7-56) 03/21/19 05:00 212 units/L (35-129) H 03/21/19 05:00 28.0 umol/L (25-60) 02/21/19 20:04 64 units/L (55-170) 02/22/19 03:42 CK-MB (CK-2) 3.7 ng/mL (0.0-4.0) 02/22/19 03:42 CK-MB (CK-2) Rel Index 5.7 (0-4) H 02/22/19 03:42 0.193 ng/mL (0.00-0.029) H* 02/22/19 03:42 6.7 g/dL (6.3-8.2) 03/21/19 05:00 2.2 g/dL (3.9-5) L 03/21/19 05:00 0.5 % 03/21/19 05:00 Triglycerides 51 mg/dL (2-149) 02/21/19 18:30 Cholesterol 82 mg/dL (50-199) 02/21/19 18:30 36 mg/dL (50-130) L 02/21/19 18:30 40 mg/dL (40-59) 02/21/19 18:30 2.05 % 02/21/19 18:30 TSH 2.760 mlU/mL (0.270-4.200) 02/21/19 20:04 PTH Intact 267.6 pg/mL (15-65) H 03/02/19 05:15 Salicylates < 0.3 mg/dL (2.8-20.0) L 02/21/19 20:04 Acetaminophen < 5.0 ug/mL (10.0-30.0) L 02/21/19 20:04 Hepatitis A IgM Ab Non-reactive (NonReactive) 02/23/19 11:20 Hep Bs Antigen Non-reactive (Negative) 02/23/19 11:20 Hep B Core IgM Ab Non-reactive (NonReactive) 02/23/19 11:20 Non-reactive (NonReactive) 02/23/19 11:20 Blood Type O POSITIVE 03/22/19 08:48 Antibody Screen Negative 03/22/19 08:48 Crossmatch See Detail 03/22/19 08:48 Active Medications - Current Medications Current Medications: Generic Name Dose Route Start Last Admin Trade Name Freq PRN Reason Stop Dose Admin Acetaminophen 650 mg 02/21/19 22:19 03/18/19 04:53 Tylenol PO 650 mg Q4H PRN Administration Pain MILD(1-3)/Fever >100.5/HILL Albuterol/Ipratropium 1 ampul 02/24/19 20:00 03/24/19 07:59 Duoneb *Not For Prn Use* IH 1 ampul TIDRT SANCHEZ Administration Lipase/Protease/Amylase 1 each 03/05/19 14:04 Pancrejewel Barrientos 10,500 Unit FEEDTUBE PRN PRN For Clogged Feeding Tube Dextrose 50 ml 02/21/19 22:22 03/03/19 17:37 D50w (25gm) Syringe IV 50 ml PRN PRN Administration Hypoglycemia Epoetin Solitario 20,000 unit 03/24/19 11:17 Procrit IV UMA PRN hemodialysis Famotidine 20 mg 02/23/19 10:00 03/24/19 10:53 Pepcid PO 20 mg DAILY SANCHEZ Administration Heparin Sodium (Porcine) 5,000 unit 03/04/19 22:00 03/24/19 10:53 Heparin SUB-Q 5,000 unit Q12HR SANCHEZ Administration Hydrophilic Ointment 1 applic 02/21/19 18:24 03/05/19 08:16 Vaseline Lip Therapy TP 1 applic Q2HR PRN Administration Dry Lips Sodium Chloride 100 mls @ 999 mls/hr 02/26/19 09:00 Nacl 0.9% IV UMA PRN Hypotension Norepinephrine 8 mg/ Sodium 250 mls @ 3.75 mls/hr 03/18/19 13:00 03/19/19 09:17 Chloride IV 0 mcg/min TITR SANCHEZ 0 mls/hr Titration Protocol 2 MCG/MIN Insulin Human Regular 0 units 02/26/19 12:00 03/24/19 06:09 Humulin R SUB-Q Not Given Q6HR SANCHEZ Protocol Metoprolol Tartrate 2.5 mg 02/28/19 12:06 03/15/19 05:15 Lopressor IV 2.5 mg Q4HR PRN Administration Tachycardia Multi-Ingred Cream/Lotion/Oil/Oint 1 applic 02/21/19 18:24 Artificial Tears Ophth Oint OU Q4HR PRN Dry Eye(s) Ondansetron HCl 4 mg 02/21/19 22:19 03/12/19 21:39 Zofran IV 4 mg Q8H PRN Administration Nausea And Vomiting Risperidone 1 mg 02/25/19 13:00 03/24/19 10:53 Risperdal PO 1 mg DAILY SANCHEZ Administration Scopolamine 1 each 03/13/19 04:00 03/22/19 03:56 Transderm-Scop TD 1 each Q3D SANCHEZ Administration Sertraline HCl 100 mg 02/25/19 13:00 03/24/19 10:53 Zoloft PO 100 mg DAILY ASNCHEZ Administration Simple Syrup 15 ml 03/05/19 14:04 Simple Syrup FEEDTUBE PRN PRN Hypoglycemia Simple Syrup 30 ml 03/05/19 14:04 Simple Syrup FEEDTUBE PRN PRN Hypoglycemia Sodium Bicarbonate 325 mg 03/05/19 14:04 Sodium Bicarbonate FEEDTUBE PRN PRN For Clogged Feeding Tube Sodium Chloride 10 ml 02/22/19 10:00 03/24/19 10:54 Sodium Chloride Flush Syringe 10 Ml IV 10 ml BID SANCHEZ Administration Sodium Chloride 10 ml 02/21/19 22:19 02/24/19 22:00 Sodium Chloride Flush Syringe 10 Ml IV 10 ml PRN PRN Administration LINE FLUSH Tramadol HCl 50 mg 03/05/19 10:08 03/18/19 04:38 Ultram PO 50 mg Q6H PRN Administration Pain, Moderate (4-6) Trimethoprim/Sulfamethoxazole 160 mg 03/19/19 15:00 03/24/19 10:53 Bactrim 200-40 Mg/5 Ml PO 03/28/19 23:59 160 mg Q24HR SANCHEZ Administration Nutrition/Malnutrition Assess - Dietary Evaluation Nutrition/Malnutrition Findings: Nutrition Notes Start: 02/22/19 12:51 Freq: Status: Active Protocol: Document 03/19/19 11:10 LM (Rec: 03/19/19 11:17 LM [id number]) Nutrition Notes Initial or Follow up Reassessment Current Diagnosis Diabetes,Hypertension Other Pertinent Diagnosis Sacral PU, ESRD on HD (T/Thurs /Sat), Schizophrenia,Blind in L eye,S/P trach Current Diet Vital AF 1.2 at 70 ml/hr Labs/Tests Reviewed Pertinent Medications Humulin Height 5 ft 10 in Weight 88.75 kg [place] Body Weight (kg) 75.45 BMI 28.0 Subjective/Other Information Vital AF running 75 ml/hr at time of visit. Pt toleating TF . Percent of energy/protein needs met: 100%/100% Burn Absent Trauma Absent #2 Nutrition Diagnosis Increased nutrient needs ( specify in comment below) Diagnosis Progress(for reassessment Continues documentation) #1 Nutrition Diagnosis Inadequate oral intake Diagnosis Progress(for reassessment Continues documentation) Is patient on ventilator? Yes Is Patient Ambulatory and/or Out of Bed No REE-([facility]-confined to bed) 2024.576 Kcal/Kg value to use for calculation 18 Approximate Energy Requirements Using 1598 kcal/Kg Calculation Used for Recommendations Kcal/kg Additional Notes Protein Needs: 106-177g (1.2- 2g/kg) Fluid Needs: 1 ml/kcal Nutrition Intervention Change Diet Order: Continue TF Nutrition Support: Vital 1.2 at 70 ml/hr Water flush of 100 mls q 4 hrs Kcal 2,016 Protein (gm) 126 Fluid (mL) 1,362 Add Supplement/Snack (indicate name/kcal Abhilash BID /protein ) Provides kCal: 190 Provides Protein (gm) 5 Goal #1 TF tolerance Goal #2 Continue to meet at least 80% of calorie and protein needs via TF Anticipated Discharge Needs: Unable to determine at this time Follow-Up By: 03/26/19 Additional Comments F/U for TF rate/tolerance
--- NOTE | 2019-03-24 13:53 | Progress Note ---
Assessment and Plan Imp: 1. Acute encephalopathy, probably metabolic or toxic 2. A/C systolic CHF 3. Dilated CMP 4. Pulm HTN 5. ESRD 6. RUL atelectasis, probably mucous plugging -> resolved 7. KEON pneumonia Rec: 1. Chest PT, Duonebs 2. Tolerating Tpiece; monitor 3. Avoid sedatives; resumed psych meds 4. DVT and GI PPx 5. TFs per PEG 6. HD per renal 7. Bactrim versus Acinetobacter sp. per ID recs; f/u CXR periodically to ensure resolution of KEON density 8. Complex decision-making 9. Prognosis is poor; patient hospice-appropriate, family refuses Await placement No family present Subjective Date of service: 03/24/19 Principal diagnosis: respiratory failure Interval history: No events. Mentation near usual poor baseline. Had HD & had 1 unit of PRBCs yesterday. Cannot give hx. On 28% per Tpiece. Active Medications Acetaminophen (Tylenol) 650 mg PO Q4H PRN PRN Reason: Pain MILD(1-3)/Fever >100.5/HILL Last Admin: 03/18/19 04:53 Dose: 650 mg Documented by: Albuterol/Ipratropium (Duoneb *Not For Prn Use*) 1 ampul IH TIDRT [facility] Last Admin: 03/24/19 13:50 Dose: 1 ampul Documented by: Lipase/Protease/Amylase ([place] 10,500 Unit) 1 each FEEDTUBE PRN PRN PRN Reason: For Clogged Feeding Tube Dextrose (D50w (25gm) Syringe) 50 ml IV PRN PRN PRN Reason: Hypoglycemia Last Admin: 03/03/19 17:37 Dose: 50 ml Documented by: Epoetin Solitario (Procrit) 20,000 unit IV UMA PRN PRN Reason: hemodialysis Famotidine (Pepcid) 20 mg PO DAILY [facility] Last Admin: 03/24/19 10:53 Dose: 20 mg Documented by: Heparin Sodium (Porcine) (Heparin) 5,000 unit SUB-Q Q12HR [facility] Last Admin: 03/24/19 10:53 Dose: 5,000 unit Documented by: Hydrophilic Ointment (Vaseline Lip Therapy) 1 applic TP Q2HR PRN PRN Reason: Dry Lips Last Admin: 03/05/19 08:16 Dose: 1 applic Documented by: Sodium Chloride (Nacl 0.9%) 100 mls @ 999 mls/hr IV UMA PRN PRN Reason: Hypotension Norepinephrine 8 mg/ Sodium (Chloride) 250 mls @ 3.75 mls/hr IV TITR [facility]; Protocol Last Titration: 03/19/19 09:17 Dose: 0 mcg/min, 0 mls/hr Documented by: Insulin Human Regular (Humulin R) 0 units SUB-Q Q6HR [facility]; Protocol Last Admin: 03/24/19 12:33 Dose: 1 units Documented by: Metoprolol Tartrate (Lopressor) 2.5 mg IV Q4HR PRN PRN Reason: Tachycardia Last Admin: 03/15/19 05:15 Dose: 2.5 mg Documented by: Multi-Ingred Cream/Lotion/Oil/Oint (Artificial Tears Ophth Oint) 1 applic OU Q4HR PRN PRN Reason: Dry Eye(s) Ondansetron HCl (Zofran) 4 mg IV Q8H PRN PRN Reason: Nausea And Vomiting Last Admin: 03/12/19 21:39 Dose: 4 mg Documented by: Risperidone (Risperdal) 1 mg PO DAILY [facility] Last Admin: 03/24/19 10:53 Dose: 1 mg Documented by: Scopolamine (Transderm-Scop) 1 each TD Q3D [facility] Last Admin: 03/22/19 03:56 Dose: 1 each Documented by: Sertraline HCl (Zoloft) 100 mg PO DAILY [facility] Last Admin: 03/24/19 10:53 Dose: 100 mg Documented by: Simple Syrup (Simple Syrup) 15 ml FEEDTUBE PRN PRN PRN Reason: Hypoglycemia Simple Syrup (Simple Syrup) 30 ml FEEDTUBE PRN PRN PRN Reason: Hypoglycemia Sodium Bicarbonate (Sodium Bicarbonate) 325 mg FEEDTUBE PRN PRN PRN Reason: For Clogged Feeding Tube Sodium Chloride (Sodium Chloride Flush Syringe 10 Ml) 10 ml IV BID [facility] Last Admin: 03/24/19 10:54 Dose: 10 ml Documented by: Sodium Chloride (Sodium Chloride Flush Syringe 10 Ml) 10 ml IV PRN PRN PRN Reason: LINE FLUSH Last Admin: 02/24/19 22:00 Dose: 10 ml Documented by: Tramadol HCl (Ultram) 50 mg PO Q6H PRN PRN Reason: Pain, Moderate (4-6) Last Admin: 03/18/19 04:38 Dose: 50 mg Documented by: Trimethoprim/Sulfamethoxazole (Bactrim 200-40 Mg/5 Ml) 160 mg PO Q24HR SANCHEZ Stop: 03/28/19 23:59 Last Admin: 03/24/19 10:53 Dose: 160 mg Documented by: Objective Vital Signs - 12hr 03/24/19 03/24/19 03/24/19 02:00 03:00 03:46 Temperature 99.8 F H Pulse Rate 106 H 112 H Pulse Rate [ Anterior Bilateral Throughout] Pulse Rate [ From Monitor] Pulse Rate [ Throughout] Respiratory 24 23 Rate Respiratory Rate [Anterior Bilateral Throughout] Respiratory Rate [ Throughout] Blood Pressure 120/72 120/67 O2 Sat by Pulse 98 99 Oximetry O2 Sat by Pulse Oximetry [ Assessment] 03/24/19 03/24/19 03/24/19 04:00 05:00 06:00 Temperature Pulse Rate 107 H 110 H 118 H Pulse Rate [ Anterior Bilateral Throughout] Pulse Rate [ 107 H From Monitor] Pulse Rate [ Throughout] Respiratory 19 25 H 28 H Rate Respiratory Rate [Anterior Bilateral Throughout] Respiratory Rate [ Throughout] Blood Pressure 112/66 128/73 120/75 O2 Sat by Pulse 99 100 99 Oximetry O2 Sat by Pulse Oximetry [ Assessment] 03/24/19 03/24/19 03/24/19 07:00 07:46 07:59 Temperature 97.4 F L Pulse Rate 112 H Pulse Rate [ Anterior Bilateral Throughout] Pulse Rate [ From Monitor] Pulse Rate [ Throughout] Respiratory 24 Rate Respiratory Rate [Anterior Bilateral Throughout] Respiratory Rate [ Throughout] Blood Pressure 115/61 O2 Sat by Pulse 97 100 Oximetry O2 Sat by Pulse Oximetry [ Assessment] 03/24/19 03/24/19 03/24/19 08:00 08:19 09:00 Temperature 98.0 F Pulse Rate 115 H 100 H Pulse Rate [ 118 H Anterior Bilateral Throughout] Pulse Rate [ From Monitor] Pulse Rate [ 112 H Throughout] Respiratory 26 H 17 Rate Respiratory 18 Rate [Anterior Bilateral Throughout] Respiratory 18 Rate [ Throughout] Blood Pressure 123/71 106/61 O2 Sat by Pulse 99 100 Oximetry O2 Sat by Pulse 100 Oximetry [ Assessment] 03/24/19 03/24/19 03/24/19 10:00 11:00 12:00 Temperature 98.0 F Pulse Rate 111 H 117 H 108 H Pulse Rate [ Anterior Bilateral Throughout] Pulse Rate [ From Monitor] Pulse Rate [ Throughout] Respiratory 20 16 22 Rate Respiratory Rate [Anterior Bilateral Throughout] Respiratory Rate [ Throughout] Blood Pressure 117/63 113/72 118/60 O2 Sat by Pulse 100 99 100 Oximetry O2 Sat by Pulse Oximetry [ Assessment] 03/24/19 13:00 Temperature Pulse Rate 104 H Pulse Rate [ Anterior Bilateral Throughout] Pulse Rate [ From Monitor] Pulse Rate [ Throughout] Respiratory 19 Rate Respiratory Rate [Anterior Bilateral Throughout] Respiratory Rate [ Throughout] Blood Pressure 102/63 O2 Sat by Pulse 100 Oximetry O2 Sat by Pulse Oximetry [ Assessment] Constitutional: no acute distress, alert Eyes: non-icteric ENT: oropharynx moist Neck: supple Effort: normal Ascultation: Bilateral: other (coarse BS bilaterally) Percussion: Bilateral: not dull Cardiovascular: other (tachy, RR; no mrg) Gastrointestinal: normoactive bowel sounds, soft, non-tender, non-distended, other (ostomy in place, brown stool) Extremities: no cyanosis, no edema, pink and warm Neurologic: other (mild weakness LUE, o/w nonfocal) Psychiatric: other (unable to assess) CBC and BMP: 03/24/19 04:20 03/24/19 04:20 ABG, PT/INR, D-dimer: ABG POC ABG pH 7.510 (7.35-7.45) H 03/18/19 06:38 ABG pH 7.424 pH Units (7.350-7.450) 03/19/19 04:23 POC ABG pCO2 38.9 (35-45) 03/18/19 06:38 ABG pCO2 48.0 mm Hg 03/19/19 04:23 POC ABG pO2 164 (80-105) H 03/18/19 06:38 ABG pO2 78.3 mm Hg (80.0-90.0) L 03/19/19 04:23 POC ABG HCO3 31.0 (22-26 mml/L) 03/18/19 06:38 POC ABG Total CO2 32 (23-27mmol/L) 03/18/19 06:38 POC ABG O2 Sat 100 03/18/19 06:38 ABG O2 Saturation 97.0 % (95.0-99.0) 03/19/19 04:23 PT/INR, D-dimer PT 16.3 Sec. (12.2-14.9) H 03/01/19 09:39 INR 1.35 (0.87-1.13) H 03/01/19 09:39 2987.82 ng/mlDDU (0-234) H 02/22/19 05:54 Abnormal lab findings: Abnormal Labs 02/21/19 02/21/19 02/21/19 18:30 18:30 18:30 WBC RBC 3.26 L Hgb 8.8 L Hct 29.0 L MCH 27 L MCHC 30 L RDW 19.1 H Lymph % (Auto) 6.1 L [place] % (Auto) Eos % (Auto) Lymph # 0.4 L [place] # Eos # Seg Neutrophils % 86.2 H Seg Neuts % (Manual) Lymphocytes % (Manual) Eosinophils % (Manual) Seg Neutrophils # Lymphocytes # (Manual) Eosinophils # (Manual) PT INR D-Dimer POC ABG pH POC ABG pCO2 POC ABG pO2 ABG pO2 ABG HCO3 ABG Base Excess ABG Hemoglobin Oxyhemoglobin Sodium 133 L Potassium 3.3 L Chloride 93.1 L Carbon Dioxide 33 H BUN Creatinine Glucose 161 H POC Glucose Calcium Phosphorus ALT Alkaline Phosphatase 136 H Total Creatine Kinase 37 L CK-MB (CK-2) Rel Index Troponin T 0.192 H* Albumin 2.4 L LDL Cholesterol Direct 36 L PTH Intact Salicylates Acetaminophen Crossmatch 02/21/19 02/21/19 02/21/19 18:42 20:04 20:04 WBC RBC Hgb Hct MCH MCHC RDW Lymph % (Auto) [place] % (Auto) Eos % (Auto) Lymph # [place] # Eos # Seg Neutrophils % Seg Neuts % (Manual) Lymphocytes % (Manual) Eosinophils % (Manual) Seg Neutrophils # Lymphocytes # (Manual) Eosinophils # (Manual) PT INR D-Dimer POC ABG pH POC ABG pCO2 56.7 H POC ABG pO2 291 H ABG pO2 ABG HCO3 ABG Base Excess ABG Hemoglobin Oxyhemoglobin Sodium Potassium Chloride Carbon Dioxide BUN Creatinine Glucose POC Glucose Calcium Phosphorus ALT Alkaline Phosphatase Total Creatine Kinase CK-MB (CK-2) Rel Index Troponin T Albumin LDL Cholesterol Direct PTH Intact Salicylates < 0.3 L Acetaminophen < 5.0 L Crossmatch 02/21/19 02/22/19 02/22/19 22:35 03:42 03:42 WBC RBC 3.20 L Hgb 8.8 L Hct 27.6 L MCH MCHC RDW 18.9 H Lymph % (Auto) 7.4 L [place] % (Auto) Eos % (Auto) Lymph # 0.7 L [place] # Eos # Seg Neutrophils % 84.7 H Seg Neuts % (Manual) Lymphocytes % (Manual) Eosinophils % (Manual) Seg Neutrophils # Lymphocytes # (Manual) Eosinophils # (Manual) PT INR D-Dimer POC ABG pH POC ABG pCO2 POC ABG pO2 ABG pO2 ABG HCO3 ABG Base Excess ABG Hemoglobin Oxyhemoglobin Sodium 134 L Potassium 2.6 L* D Chloride Carbon Dioxide BUN Creatinine Glucose POC Glucose Calcium Phosphorus ALT Alkaline Phosphatase Total Creatine Kinase CK-MB (CK-2) Rel Index 5.2 H Troponin T 0.202 H* Albumin LDL Cholesterol Direct PTH Intact Salicylates Acetaminophen Crossmatch 02/22/19 02/22/19 02/22/19 03:42 05:54 09:04 WBC RBC Hgb Hct MCH MCHC RDW Lymph % (Auto) [place] % (Auto) Eos % (Auto) Lymph # [place] # Eos # Seg Neutrophils % Seg Neuts % (Manual) Lymphocytes % (Manual) Eosinophils % (Manual) Seg Neutrophils # Lymphocytes # (Manual) Eosinophils # (Manual) PT INR D-Dimer 2987.82 H POC ABG pH 7.451 H POC ABG pCO2 POC ABG pO2 ABG pO2 ABG HCO3 ABG Base Excess ABG Hemoglobin Oxyhemoglobin Sodium Potassium Chloride Carbon Dioxide BUN Creatinine Glucose POC Glucose Calcium Phosphorus ALT Alkaline Phosphatase Total Creatine Kinase CK-MB (CK-2) Rel Index 5.7 H Troponin T 0.193 H* Albumin LDL Cholesterol Direct PTH Intact Salicylates Acetaminophen Crossmatch 02/22/19 02/22/19 02/23/19 10:36 23:56 00:52 WBC RBC Hgb Hct MCH MCHC RDW Lymph % (Auto) [place] % (Auto) Eos % (Auto) Lymph # [place] # Eos # Seg Neutrophils % Seg Neuts % (Manual) Lymphocytes % (Manual) Eosinophils % (Manual) Seg Neutrophils # Lymphocytes # (Manual) Eosinophils # (Manual) PT INR D-Dimer POC ABG pH POC ABG pCO2 POC ABG pO2 ABG pO2 ABG HCO3 ABG Base Excess ABG Hemoglobin Oxyhemoglobin Sodium Potassium 3.1 L Chloride Carbon Dioxide BUN Creatinine Glucose POC Glucose 58 L 111 H Calcium Phosphorus ALT Alkaline Phosphatase Total Creatine Kinase CK-MB (CK-2) Rel Index Troponin T Albumin LDL Cholesterol Direct PTH Intact Salicylates Acetaminophen Crossmatch 02/23/19 02/23/19 02/23/19 05:00 06:35 14:26 WBC RBC Hgb Hct MCH MCHC RDW Lymph % (Auto) [place] % (Auto) Eos % (Auto) Lymph # [place] # Eos # Seg Neutrophils % Seg Neuts % (Manual) Lymphocytes % (Manual) Eosinophils % (Manual) Seg Neutrophils # Lymphocytes # (Manual) Eosinophils # (Manual) PT INR D-Dimer POC ABG pH POC ABG pCO2 POC ABG pO2 ABG pO2 ABG HCO3 ABG Base Excess ABG Hemoglobin Oxyhemoglobin Sodium 135 L Potassium 3.1 L Chloride Carbon Dioxide BUN 21 H Creatinine 2.0 H Glucose 57 L POC Glucose 64 L 62 L Calcium Phosphorus ALT Alkaline Phosphatase Total Creatine Kinase CK-MB (CK-2) Rel Index Troponin T Albumin LDL Cholesterol Direct PTH Intact Salicylates Acetaminophen Crossmatch 02/24/19 02/24/19 02/24/19 02:11 04:12 04:55 WBC RBC 2.84 L Hgb 7.8 L Hct 24.5 L MCH MCHC RDW 19.5 H Lymph % (Auto) [place] % (Auto) Eos % (Auto) Lymph # [place] # Eos # Seg Neutrophils % Seg Neuts % (Manual) Lymphocytes % (Manual) Eosinophils % (Manual) Seg Neutrophils # Lymphocytes # (Manual) Eosinophils # (Manual) PT INR D-Dimer POC ABG pH 7.511 H POC ABG pCO2 33.9 L POC ABG pO2 62 L ABG pO2 ABG HCO3 ABG Base Excess ABG Hemoglobin Oxyhemoglobin Sodium Potassium Chloride Carbon Dioxide BUN Creatinine Glucose POC Glucose 69 L Calcium Phosphorus ALT Alkaline Phosphatase Total Creatine Kinase CK-MB (CK-2) Rel Index Troponin T Albumin LDL Cholesterol Direct PTH Intact Salicylates Acetaminophen Crossmatch 02/24/19 02/24/19 02/25/19 04:55 05:41 04:45 WBC RBC Hgb Hct MCH MCHC RDW Lymph % (Auto) [place] % (Auto) Eos % (Auto) Lymph # [place] # Eos # Seg Neutrophils % Seg Neuts % (Manual) Lymphocytes % (Manual) Eosinophils % (Manual) Seg Neutrophils # Lymphocytes # (Manual) Eosinophils # (Manual) PT INR D-Dimer POC ABG pH 7.466 H POC ABG pCO2 POC ABG pO2 75 L ABG pO2 ABG HCO3 ABG Base Excess ABG Hemoglobin Oxyhemoglobin Sodium Potassium Chloride Carbon Dioxide BUN Creatinine 1.8 H Glucose 73 L POC Glucose 127 H Calcium Phosphorus ALT Alkaline Phosphatase Total Creatine Kinase CK-MB (CK-2) Rel Index Troponin T Albumin LDL Cholesterol Direct PTH Intact Salicylates Acetaminophen Crossmatch 02/25/19 02/25/19 02/26/19 16:34 21:33 03:45 WBC RBC 2.96 L Hgb 8.0 L Hct 25.8 L MCH 27 L MCHC 31 L RDW 20.0 H Lymph % (Auto) [place] % (Auto) Eos % (Auto) Lymph # [place] # Eos # Seg Neutrophils % Seg Neuts % (Manual) Lymphocytes % (Manual) Eosinophils % (Manual) Seg Neutrophils # Lymphocytes # (Manual) Eosinophils # (Manual) PT INR D-Dimer POC ABG pH POC ABG pCO2 POC ABG pO2 ABG pO2 ABG HCO3 ABG Base Excess ABG Hemoglobin Oxyhemoglobin Sodium Potassium Chloride Carbon Dioxide BUN Creatinine Glucose POC Glucose 141 H 106 H Calcium Phosphorus ALT Alkaline Phosphatase Total Creatine Kinase CK-MB (CK-2) Rel Index Troponin T Albumin LDL Cholesterol Direct PTH Intact Salicylates Acetaminophen Crossmatch 02/26/19 02/26/19 02/26/19 03:45 04:13 07:53 WBC RBC Hgb Hct MCH MCHC RDW Lymph % (Auto) [place] % (Auto) Eos % (Auto) Lymph # [place] # Eos # Seg Neutrophils % Seg Neuts % (Manual) Lymphocytes % (Manual) Eosinophils % (Manual) Seg Neutrophils # Lymphocytes # (Manual) Eosinophils # (Manual) PT INR D-Dimer POC ABG pH 7.470 H POC ABG pCO2 POC ABG pO2 ABG pO2 ABG HCO3 ABG Base Excess ABG Hemoglobin Oxyhemoglobin Sodium Potassium Chloride Carbon Dioxide BUN Creatinine 1.8 H Glucose POC Glucose 110 H Calcium Phosphorus ALT Alkaline Phosphatase Total Creatine Kinase CK-MB (CK-2) Rel Index Troponin T Albumin LDL Cholesterol Direct PTH Intact Salicylates Acetaminophen Crossmatch 02/26/19 02/26/19 02/27/19 11:56 17:43 00:12 WBC RBC Hgb Hct MCH MCHC RDW Lymph % (Auto) [place] % (Auto) Eos % (Auto) Lymph # [place] # Eos # Seg Neutrophils % Seg Neuts % (Manual) Lymphocytes % (Manual) Eosinophils % (Manual) Seg Neutrophils # Lymphocytes # (Manual) Eosinophils # (Manual) PT INR D-Dimer POC ABG pH POC ABG pCO2 POC ABG pO2 ABG pO2 ABG HCO3 ABG Base Excess ABG Hemoglobin Oxyhemoglobin Sodium Potassium Chloride Carbon Dioxide BUN Creatinine Glucose POC Glucose 112 H 127 H 127 H Calcium Phosphorus ALT Alkaline Phosphatase Total Creatine Kinase CK-MB (CK-2) Rel Index Troponin T Albumin LDL Cholesterol Direct PTH Intact Salicylates Acetaminophen Crossmatch 02/27/19 02/27/19 02/27/19 04:35 13:15 18:02 WBC RBC Hgb Hct MCH MCHC RDW Lymph % (Auto) [place] % (Auto) Eos % (Auto) Lymph # [place] # Eos # Seg Neutrophils % Seg Neuts % (Manual) Lymphocytes % (Manual) Eosinophils % (Manual) Seg Neutrophils # Lymphocytes # (Manual) Eosinophils # (Manual) PT INR D-Dimer POC ABG pH 7.483 H POC ABG pCO2 POC ABG pO2 61 L ABG pO2 ABG HCO3 ABG Base Excess ABG Hemoglobin Oxyhemoglobin Sodium Potassium Chloride Carbon Dioxide BUN Creatinine Glucose POC Glucose 143 H 106 H Calcium Phosphorus ALT Alkaline Phosphatase Total Creatine Kinase CK-MB (CK-2) Rel Index Troponin T Albumin LDL Cholesterol Direct PTH Intact Salicylates Acetaminophen Crossmatch 02/28/19 02/28/19 02/28/19 05:50 11:59 17:52 WBC RBC Hgb Hct MCH MCHC RDW Lymph % (Auto) [place] % (Auto) Eos % (Auto) Lymph # [place] # Eos # Seg Neutrophils % Seg Neuts % (Manual) Lymphocytes % (Manual) Eosinophils % (Manual) Seg Neutrophils # Lymphocytes # (Manual) Eosinophils # (Manual) PT INR D-Dimer POC ABG pH POC ABG pCO2 POC ABG pO2 ABG pO2 ABG HCO3 ABG Base Excess ABG Hemoglobin Oxyhemoglobin Sodium Potassium Chloride Carbon Dioxide BUN Creatinine Glucose POC Glucose 134 H 128 H 142 H Calcium Phosphorus ALT Alkaline Phosphatase Total Creatine Kinase CK-MB (CK-2) Rel Index Troponin T Albumin LDL Cholesterol Direct PTH Intact Salicylates Acetaminophen Crossmatch 02/28/19 03/01/19 03/01/19 23:13 05:40 09:39 WBC RBC Hgb Hct MCH MCHC RDW Lymph % (Auto) [place] % (Auto) Eos % (Auto) Lymph # [place] # Eos # Seg Neutrophils % Seg Neuts % (Manual) Lymphocytes % (Manual) Eosinophils % (Manual) Seg Neutrophils # Lymphocytes # (Manual) Eosinophils # (Manual) PT 16.3 H INR 1.35 H D-Dimer POC ABG pH POC ABG pCO2 POC ABG pO2 ABG pO2 ABG HCO3 ABG Base Excess ABG Hemoglobin Oxyhemoglobin Sodium Potassium Chloride Carbon Dioxide BUN Creatinine Glucose POC Glucose 112 H 111 H Calcium Phosphorus ALT Alkaline Phosphatase Total Creatine Kinase CK-MB (CK-2) Rel Index Troponin T Albumin LDL Cholesterol Direct PTH Intact Salicylates Acetaminophen Crossmatch 03/01/19 03/01/19 03/01/19 11:56 13:54 17:59 WBC RBC Hgb Hct MCH MCHC RDW Lymph % (Auto) [place] % (Auto) Eos % (Auto) Lymph # [place] # Eos # Seg Neutrophils % Seg Neuts % (Manual) Lymphocytes % (Manual) Eosinophils % (Manual) Seg Neutrophils # Lymphocytes # (Manual) Eosinophils # (Manual) PT INR D-Dimer POC ABG pH POC ABG pCO2 POC ABG pO2 ABG pO2 ABG HCO3 ABG Base Excess ABG Hemoglobin Oxyhemoglobin Sodium Potassium Chloride Carbon Dioxide BUN 33 H Creatinine 2.8 H D Glucose 176 H POC Glucose 199 H 147 H Calcium Phosphorus ALT Alkaline Phosphatase Total Creatine Kinase CK-MB (CK-2) Rel Index Troponin T Albumin LDL Cholesterol Direct PTH Intact Salicylates Acetaminophen Crossmatch 03/02/19 03/02/19 03/02/19 05:15 05:15 05:15 WBC RBC 2.73 L Hgb 7.4 L Hct 23.0 L MCH 27 L MCHC RDW 19.9 H Lymph % (Auto) [place] % (Auto) 7.9 H Eos % (Auto) 7.6 H Lymph # 1.0 L [place] # Eos # 0.5 H Seg Neutrophils % Seg Neuts % (Manual) Lymphocytes % (Manual) Eosinophils % (Manual) Seg Neutrophils # Lymphocytes # (Manual) Eosinophils # (Manual) PT INR D-Dimer POC ABG pH POC ABG pCO2 POC ABG pO2 ABG pO2 ABG HCO3 ABG Base Excess ABG Hemoglobin Oxyhemoglobin Sodium Potassium Chloride Carbon Dioxide BUN 43 H Creatinine 3.2 H Glucose POC Glucose Calcium Phosphorus 2.30 L ALT Alkaline Phosphatase Total Creatine Kinase CK-MB (CK-2) Rel Index Troponin T Albumin LDL Cholesterol Direct PTH Intact 267.6 H Salicylates Acetaminophen Crossmatch 03/02/19 03/02/19 03/03/19 12:32 18:20 13:30 WBC RBC Hgb Hct MCH MCHC RDW Lymph % (Auto) [place] % (Auto) Eos % (Auto) Lymph # [place] # Eos # Seg Neutrophils % Seg Neuts % (Manual) Lymphocytes % (Manual) Eosinophils % (Manual) Seg Neutrophils # Lymphocytes # (Manual) Eosinophils # (Manual) PT INR D-Dimer POC ABG pH POC ABG pCO2 POC ABG pO2 ABG pO2 ABG HCO3 ABG Base Excess ABG Hemoglobin Oxyhemoglobin Sodium Potassium Chloride 97.3 L Carbon Dioxide BUN 26 H Creatinine 2.2 H Glucose 73 L POC Glucose 111 H 156 H Calcium Phosphorus ALT Alkaline Phosphatase Total Creatine Kinase CK-MB (CK-2) Rel Index Troponin T Albumin LDL Cholesterol Direct PTH Intact Salicylates Acetaminophen Crossmatch 03/04/19 03/04/19 03/04/19 00:02 05:37 05:40 WBC RBC 2.63 L Hgb 7.2 L Hct 22.2 L MCH MCHC RDW 20.2 H Lymph % (Auto) 10.5 L [place] % (Auto) Eos % (Auto) 4.6 H Lymph # 0.7 L [place] # Eos # Seg Neutrophils % 76.9 H Seg Neuts % (Manual) Lymphocytes % (Manual) Eosinophils % (Manual) Seg Neutrophils # Lymphocytes # (Manual) Eosinophils # (Manual) PT INR D-Dimer POC ABG pH POC ABG pCO2 POC ABG pO2 ABG pO2 ABG HCO3 ABG Base Excess ABG Hemoglobin Oxyhemoglobin Sodium Potassium Chloride Carbon Dioxide BUN Creatinine Glucose POC Glucose 136 H 123 H Calcium Phosphorus ALT Alkaline Phosphatase Total Creatine Kinase CK-MB (CK-2) Rel Index Troponin T Albumin LDL Cholesterol Direct PTH Intact Salicylates Acetaminophen Crossmatch 03/04/19 03/04/19 03/04/19 05:40 11:39 23:20 WBC RBC Hgb Hct MCH MCHC RDW Lymph % (Auto) [place] % (Auto) Eos % (Auto) Lymph # [place] # Eos # Seg Neutrophils % Seg Neuts % (Manual) Lymphocytes % (Manual) Eosinophils % (Manual) Seg Neutrophils # Lymphocytes # (Manual) Eosinophils # (Manual) PT INR D-Dimer POC ABG pH POC ABG pCO2 POC ABG pO2 ABG pO2 ABG HCO3 ABG Base Excess ABG Hemoglobin Oxyhemoglobin Sodium Potassium Chloride Carbon Dioxide BUN 34 H Creatinine 2.7 H Glucose 114 H POC Glucose 175 H 151 H Calcium Phosphorus ALT Alkaline Phosphatase Total Creatine Kinase CK-MB (CK-2) Rel Index Troponin T Albumin LDL Cholesterol Direct PTH Intact Salicylates Acetaminophen Crossmatch 03/05/19 03/05/19 03/05/19 05:37 12:08 17:11 WBC RBC Hgb Hct MCH MCHC RDW Lymph % (Auto) [place] % (Auto) Eos % (Auto) Lymph # [place] # Eos # Seg Neutrophils % Seg Neuts % (Manual) Lymphocytes % (Manual) Eosinophils % (Manual) Seg Neutrophils # Lymphocytes # (Manual) Eosinophils # (Manual) PT INR D-Dimer POC ABG pH POC ABG pCO2 POC ABG pO2 ABG pO2 ABG HCO3 ABG Base Excess ABG Hemoglobin Oxyhemoglobin Sodium Potassium Chloride Carbon Dioxide BUN Creatinine Glucose POC Glucose 134 H 135 H 135 H Calcium Phosphorus ALT Alkaline Phosphatase Total Creatine Kinase CK-MB (CK-2) Rel Index Troponin T Albumin LDL Cholesterol Direct PTH Intact Salicylates Acetaminophen Crossmatch 03/06/19 03/06/19 03/06/19 00:16 13:05 18:09 WBC RBC Hgb Hct MCH MCHC RDW Lymph % (Auto) [place] % (Auto) Eos % (Auto) Lymph # [place] # Eos # Seg Neutrophils % Seg Neuts % (Manual) Lymphocytes % (Manual) Eosinophils % (Manual) Seg Neutrophils # Lymphocytes # (Manual) Eosinophils # (Manual) PT INR D-Dimer POC ABG pH POC ABG pCO2 POC ABG pO2 ABG pO2 ABG HCO3 ABG Base Excess ABG Hemoglobin Oxyhemoglobin Sodium Potassium Chloride Carbon Dioxide BUN Creatinine Glucose POC Glucose 117 H 113 H 131 H Calcium Phosphorus ALT Alkaline Phosphatase Total Creatine Kinase CK-MB (CK-2) Rel Index Troponin T Albumin LDL Cholesterol Direct PTH Intact Salicylates Acetaminophen Crossmatch 03/07/19 03/08/19 03/08/19 05:25 05:33 16:00 WBC RBC 2.44 L Hgb 6.6 L Hct 20.8 L MCH 27 L MCHC RDW 19.2 H Lymph % (Auto) [place] % (Auto) Eos % (Auto) 8.6 H Lymph # 0.8 L [place] # Eos # 0.5 H Seg Neutrophils % 70.7 H Seg Neuts % (Manual) Lymphocytes % (Manual) Eosinophils % (Manual) Seg Neutrophils # Lymphocytes # (Manual) Eosinophils # (Manual) PT INR D-Dimer POC ABG pH POC ABG pCO2 POC ABG pO2 ABG pO2 ABG HCO3 ABG Base Excess ABG Hemoglobin Oxyhemoglobin Sodium Potassium Chloride Carbon Dioxide BUN Creatinine Glucose POC Glucose 106 H 108 H Calcium Phosphorus ALT Alkaline Phosphatase Total Creatine Kinase CK-MB (CK-2) Rel Index Troponin T Albumin LDL Cholesterol Direct PTH Intact Salicylates Acetaminophen Crossmatch 03/08/19 03/08/19 03/08/19 16:00 18:38 Unknown WBC RBC Hgb Hct MCH MCHC RDW Lymph % (Auto) [place] % (Auto) Eos % (Auto) Lymph # [place] # Eos # Seg Neutrophils % Seg Neuts % (Manual) Lymphocytes % (Manual) Eosinophils % (Manual) Seg Neutrophils # Lymphocytes # (Manual) Eosinophils # (Manual) PT INR D-Dimer POC ABG pH POC ABG pCO2 POC ABG pO2 ABG pO2 ABG HCO3 ABG Base Excess ABG Hemoglobin Oxyhemoglobin Sodium Potassium 5.4 H D Chloride Carbon Dioxide BUN 47 H Creatinine 2.6 H Glucose POC Glucose 123 H Calcium Phosphorus ALT < 5 L Alkaline Phosphatase Total Creatine Kinase CK-MB (CK-2) Rel Index Troponin T Albumin 2.2 L LDL Cholesterol Direct PTH Intact Salicylates Acetaminophen Crossmatch See Detail 03/09/19 03/09/19 03/09/19 10:48 12:28 13:53 WBC RBC 2.85 L Hgb 7.7 L Hct 24.2 L MCH 27 L MCHC RDW 18.7 H Lymph % (Auto) [place] % (Auto) Eos % (Auto) Lymph # [place] # Eos # Seg Neutrophils % Seg Neuts % (Manual) Lymphocytes % (Manual) Eosinophils % (Manual) Seg Neutrophils # Lymphocytes # (Manual) Eosinophils # (Manual) PT INR D-Dimer POC ABG pH POC ABG pCO2 POC ABG pO2 ABG pO2 ABG HCO3 30.5 H ABG Base Excess 5.6 H ABG Hemoglobin 8.1 L Oxyhemoglobin 93.8 L Sodium Potassium Chloride Carbon Dioxide BUN Creatinine Glucose POC Glucose 114 H Calcium Phosphorus ALT Alkaline Phosphatase Total Creatine Kinase CK-MB (CK-2) Rel Index Troponin T Albumin LDL Cholesterol Direct PTH Intact Salicylates Acetaminophen Crossmatch 03/09/19 03/09/19 03/10/19 17:58 23:53 12:01 WBC RBC Hgb Hct MCH MCHC RDW Lymph % (Auto) [place] % (Auto) Eos % (Auto) Lymph # [place] # Eos # Seg Neutrophils % Seg Neuts % (Manual) Lymphocytes % (Manual) Eosinophils % (Manual) Seg Neutrophils # Lymphocytes # (Manual) Eosinophils # (Manual) PT INR D-Dimer POC ABG pH POC ABG pCO2 POC ABG pO2 ABG pO2 ABG HCO3 ABG Base Excess ABG Hemoglobin Oxyhemoglobin Sodium Potassium Chloride Carbon Dioxide BUN Creatinine Glucose POC Glucose 108 H 128 H 144 H Calcium Phosphorus ALT Alkaline Phosphatase Total Creatine Kinase CK-MB (CK-2) Rel Index Troponin T Albumin LDL Cholesterol Direct PTH Intact Salicylates Acetaminophen Crossmatch 03/10/19 03/11/19 03/11/19 16:50 00:24 05:02 WBC RBC Hgb Hct MCH MCHC RDW Lymph % (Auto) [place] % (Auto) Eos % (Auto) Lymph # [place] # Eos # Seg Neutrophils % Seg Neuts % (Manual) Lymphocytes % (Manual) Eosinophils % (Manual) Seg Neutrophils # Lymphocytes # (Manual) Eosinophils # (Manual) PT INR D-Dimer POC ABG pH POC ABG pCO2 POC ABG pO2 ABG pO2 ABG HCO3 ABG Base Excess ABG Hemoglobin Oxyhemoglobin Sodium Potassium Chloride Carbon Dioxide BUN Creatinine Glucose POC Glucose 147 H 123 H 120 H Calcium Phosphorus ALT Alkaline Phosphatase Total Creatine Kinase CK-MB (CK-2) Rel Index Troponin T Albumin LDL Cholesterol Direct PTH Intact Salicylates Acetaminophen Crossmatch 03/11/19 03/11/19 03/11/19 11:56 12:20 18:37 WBC RBC Hgb Hct MCH MCHC RDW Lymph % (Auto) [place] % (Auto) Eos % (Auto) Lymph # [place] # Eos # Seg Neutrophils % Seg Neuts % (Manual) Lymphocytes % (Manual) Eosinophils % (Manual) Seg Neutrophils # Lymphocytes # (Manual) Eosinophils # (Manual) PT INR D-Dimer POC ABG pH POC ABG pCO2 POC ABG pO2 ABG pO2 ABG HCO3 ABG Base Excess ABG Hemoglobin Oxyhemoglobin Sodium Potassium 5.2 H Chloride Carbon Dioxide BUN Creatinine Glucose POC Glucose 123 H 125 H Calcium Phosphorus ALT Alkaline Phosphatase Total Creatine Kinase CK-MB (CK-2) Rel Index Troponin T Albumin LDL Cholesterol Direct PTH Intact Salicylates Acetaminophen Crossmatch 03/11/19 03/12/19 03/12/19 22:52 12:04 18:25 WBC RBC Hgb Hct MCH MCHC RDW Lymph % (Auto) [place] % (Auto) Eos % (Auto) Lymph # [place] # Eos # Seg Neutrophils % Seg Neuts % (Manual) Lymphocytes % (Manual) Eosinophils % (Manual) Seg Neutrophils # Lymphocytes # (Manual) Eosinophils # (Manual) PT INR D-Dimer POC ABG pH POC ABG pCO2 POC ABG pO2 ABG pO2 ABG HCO3 ABG Base Excess ABG Hemoglobin Oxyhemoglobin Sodium Potassium Chloride Carbon Dioxide BUN Creatinine Glucose POC Glucose 110 H 106 H 118 H Calcium Phosphorus ALT Alkaline Phosphatase Total Creatine Kinase CK-MB (CK-2) Rel Index Troponin T Albumin LDL Cholesterol Direct PTH Intact Salicylates Acetaminophen Crossmatch 03/12/19 03/13/19 03/13/19 23:36 04:38 04:38 WBC RBC 2.95 L Hgb 7.9 L Hct 24.9 L MCH 27 L MCHC RDW 19.9 H Lymph % (Auto) 11.1 L [place] % (Auto) 8.1 H Eos % (Auto) 4.4 H Lymph # 0.9 L [place] # Eos # Seg Neutrophils % 75.4 H Seg Neuts % (Manual) Lymphocytes % (Manual) Eosinophils % (Manual) Seg Neutrophils # Lymphocytes # (Manual) Eosinophils # (Manual) PT INR D-Dimer POC ABG pH POC ABG pCO2 POC ABG pO2 ABG pO2 ABG HCO3 ABG Base Excess ABG Hemoglobin Oxyhemoglobin Sodium 136 L Potassium 5.1 H Chloride 93.8 L Carbon Dioxide BUN 48 H Creatinine 2.7 H Glucose 102 H POC Glucose 115 H Calcium Phosphorus ALT < 5 L Alkaline Phosphatase 143 H Total Creatine Kinase CK-MB (CK-2) Rel Index Troponin T Albumin 2.5 L LDL Cholesterol Direct PTH Intact Salicylates Acetaminophen Crossmatch 03/13/19 03/13/19 03/13/19 05:33 13:37 18:03 WBC RBC Hgb Hct MCH MCHC RDW Lymph % (Auto) [place] % (Auto) Eos % (Auto) Lymph # [place] # Eos # Seg Neutrophils % Seg Neuts % (Manual) Lymphocytes % (Manual) Eosinophils % (Manual) Seg Neutrophils # Lymphocytes # (Manual) Eosinophils # (Manual) PT INR D-Dimer POC ABG pH POC ABG pCO2 POC ABG pO2 ABG pO2 ABG HCO3 ABG Base Excess ABG Hemoglobin Oxyhemoglobin Sodium Potassium Chloride Carbon Dioxide BUN Creatinine Glucose POC Glucose 140 H 150 H 158 H Calcium Phosphorus ALT Alkaline Phosphatase Total Creatine Kinase CK-MB (CK-2) Rel Index Troponin T Albumin LDL Cholesterol Direct PTH Intact Salicylates Acetaminophen Crossmatch 03/13/19 03/14/19 03/14/19 23:32 05:24 12:20 WBC RBC Hgb Hct MCH MCHC RDW Lymph % (Auto) [place] % (Auto) Eos % (Auto) Lymph # [place] # Eos # Seg Neutrophils % Seg Neuts % (Manual) Lymphocytes % (Manual) Eosinophils % (Manual) Seg Neutrophils # Lymphocytes # (Manual) Eosinophils # (Manual) PT INR D-Dimer POC ABG pH POC ABG pCO2 POC ABG pO2 ABG pO2 ABG HCO3 ABG Base Excess ABG Hemoglobin Oxyhemoglobin Sodium Potassium Chloride Carbon Dioxide BUN Creatinine Glucose POC Glucose 162 H 146 H 127 H Calcium Phosphorus ALT Alkaline Phosphatase Total Creatine Kinase CK-MB (CK-2) Rel Index Troponin T Albumin LDL Cholesterol Direct PTH Intact Salicylates Acetaminophen Crossmatch 03/14/19 03/14/19 03/15/19 18:05 23:57 04:38 WBC 12.8 H RBC 3.11 L Hgb 8.1 L Hct 26.5 L MCH 26 L MCHC 31 L RDW 19.7 H Lymph % (Auto) 4.4 L [place] % (Auto) 7.4 H Eos % (Auto) Lymph # 0.6 L [place] # 0.9 H Eos # Seg Neutrophils % 87.3 H Seg Neuts % (Manual) Lymphocytes % (Manual) Eosinophils % (Manual) Seg Neutrophils # 11.2 H Lymphocytes # (Manual) Eosinophils # (Manual) PT INR D-Dimer POC ABG pH POC ABG pCO2 POC ABG pO2 ABG pO2 ABG HCO3 ABG Base Excess ABG Hemoglobin Oxyhemoglobin Sodium Potassium Chloride Carbon Dioxide BUN Creatinine Glucose POC Glucose 142 H 155 H Calcium Phosphorus ALT Alkaline Phosphatase Total Creatine Kinase CK-MB (CK-2) Rel Index Troponin T Albumin LDL Cholesterol Direct PTH Intact Salicylates Acetaminophen Crossmatch 03/15/19 03/15/19 03/15/19 04:38 05:31 11:32 WBC RBC Hgb Hct MCH MCHC RDW Lymph % (Auto) [place] % (Auto) Eos % (Auto) Lymph # [place] # Eos # Seg Neutrophils % Seg Neuts % (Manual) Lymphocytes % (Manual) Eosinophils % (Manual) Seg Neutrophils # Lymphocytes # (Manual) Eosinophils # (Manual) PT INR D-Dimer POC ABG pH POC ABG pCO2 POC ABG pO2 ABG pO2 ABG HCO3 ABG Base Excess ABG Hemoglobin Oxyhemoglobin Sodium 135 L Potassium Chloride 91.9 L Carbon Dioxide BUN 54 H Creatinine 2.8 H Glucose 128 H POC Glucose 160 H 109 H Calcium 11.1 H Phosphorus ALT Alkaline Phosphatase 161 H Total Creatine Kinase CK-MB (CK-2) Rel Index Troponin T Albumin 2.3 L LDL Cholesterol Direct PTH Intact Salicylates Acetaminophen Crossmatch 03/15/19 03/15/19 03/16/19 18:15 23:41 05:40 WBC RBC Hgb Hct MCH MCHC RDW Lymph % (Auto) [place] % (Auto) Eos % (Auto) Lymph # [place] # Eos # Seg Neutrophils % Seg Neuts % (Manual) Lymphocytes % (Manual) Eosinophils % (Manual) Seg Neutrophils # Lymphocytes # (Manual) Eosinophils # (Manual) PT INR D-Dimer POC ABG pH POC ABG pCO2 POC ABG pO2 ABG pO2 ABG HCO3 ABG Base Excess ABG Hemoglobin Oxyhemoglobin Sodium Potassium Chloride Carbon Dioxide BUN Creatinine Glucose POC Glucose 151 H 110 H 163 H Calcium Phosphorus ALT Alkaline Phosphatase Total Creatine Kinase CK-MB (CK-2) Rel Index Troponin T Albumin LDL Cholesterol Direct PTH Intact Salicylates Acetaminophen Crossmatch 03/16/19 03/16/19 03/16/19 11:55 17:04 23:58 WBC RBC Hgb Hct MCH MCHC RDW Lymph % (Auto) [place] % (Auto) Eos % (Auto) Lymph # [place] # Eos # Seg Neutrophils % Seg Neuts % (Manual) Lymphocytes % (Manual) Eosinophils % (Manual) Seg Neutrophils # Lymphocytes # (Manual) Eosinophils # (Manual) PT INR D-Dimer POC ABG pH POC ABG pCO2 POC ABG pO2 ABG pO2 ABG HCO3 ABG Base Excess ABG Hemoglobin Oxyhemoglobin Sodium Potassium Chloride Carbon Dioxide BUN Creatinine Glucose POC Glucose 114 H 147 H 192 H Calcium Phosphorus ALT Alkaline Phosphatase Total Creatine Kinase CK-MB (CK-2) Rel Index Troponin T Albumin LDL Cholesterol Direct PTH Intact Salicylates Acetaminophen Crossmatch 03/17/19 03/17/19 03/17/19 05:53 11:17 17:01 WBC RBC Hgb Hct MCH MCHC RDW Lymph % (Auto) [place] % (Auto) Eos % (Auto) Lymph # [place] # Eos # Seg Neutrophils % Seg Neuts % (Manual) Lymphocytes % (Manual) Eosinophils % (Manual) Seg Neutrophils # Lymphocytes # (Manual) Eosinophils # (Manual) PT INR D-Dimer POC ABG pH POC ABG pCO2 POC ABG pO2 ABG pO2 ABG HCO3 ABG Base Excess ABG Hemoglobin Oxyhemoglobin Sodium Potassium Chloride Carbon Dioxide BUN Creatinine Glucose POC Glucose 151 H 161 H 152 H Calcium Phosphorus ALT Alkaline Phosphatase Total Creatine Kinase CK-MB (CK-2) Rel Index Troponin T Albumin LDL Cholesterol Direct PTH Intact Salicylates Acetaminophen Crossmatch 03/17/19 03/18/19 03/18/19 21:47 04:15 04:44 WBC RBC Hgb Hct MCH MCHC RDW Lymph % (Auto) [place] % (Auto) Eos % (Auto) Lymph # [place] # Eos # Seg Neutrophils % Seg Neuts % (Manual) Lymphocytes % (Manual) Eosinophils % (Manual) Seg Neutrophils # Lymphocytes # (Manual) Eosinophils # (Manual) PT INR D-Dimer POC ABG pH POC ABG pCO2 POC ABG pO2 ABG pO2 102.8 H ABG HCO3 28.3 H ABG Base Excess ABG Hemoglobin 10.4 L Oxyhemoglobin 94.5 L Sodium Potassium Chloride Carbon Dioxide BUN Creatinine Glucose POC Glucose 170 H 150 H Calcium Phosphorus ALT Alkaline Phosphatase Total Creatine Kinase CK-MB (CK-2) Rel Index Troponin T Albumin LDL Cholesterol Direct PTH Intact Salicylates Acetaminophen Crossmatch 03/18/19 03/18/19 03/18/19 06:38 12:12 17:47 WBC RBC Hgb Hct MCH MCHC RDW Lymph % (Auto) [place] % (Auto) Eos % (Auto) Lymph # [place] # Eos # Seg Neutrophils % Seg Neuts % (Manual) Lymphocytes % (Manual) Eosinophils % (Manual) Seg Neutrophils # Lymphocytes # (Manual) Eosinophils # (Manual) PT INR D-Dimer POC ABG pH 7.510 H POC ABG pCO2 POC ABG pO2 164 H ABG pO2 ABG HCO3 ABG Base Excess ABG Hemoglobin Oxyhemoglobin Sodium Potassium Chloride Carbon Dioxide BUN Creatinine Glucose POC Glucose 145 H 149 H Calcium Phosphorus ALT Alkaline Phosphatase Total Creatine Kinase CK-MB (CK-2) Rel Index Troponin T Albumin LDL Cholesterol Direct PTH Intact Salicylates Acetaminophen Crossmatch 03/18/19 03/19/19 03/19/19 23:25 01:11 04:23 WBC 15.6 H RBC 2.51 L Hgb 6.5 L Hct 21.6 L MCH 26 L MCHC 30 L RDW 19.8 H Lymph % (Auto) 6.0 L [place] % (Auto) Eos % (Auto) Lymph # 0.9 L [place] # 1.0 H Eos # Seg Neutrophils % 85.5 H Seg Neuts % (Manual) Lymphocytes % (Manual) Eosinophils % (Manual) Seg Neutrophils # 13.4 H Lymphocytes # (Manual) Eosinophils # (Manual) PT INR D-Dimer POC ABG pH POC ABG pCO2 POC ABG pO2 ABG pO2 78.3 L ABG HCO3 30.7 H ABG Base Excess 5.8 H ABG Hemoglobin 5.8 L Oxyhemoglobin 94.6 L Sodium Potassium Chloride Carbon Dioxide BUN Creatinine Glucose POC Glucose 190 H Calcium Phosphorus ALT Alkaline Phosphatase Total Creatine Kinase CK-MB (CK-2) Rel Index Troponin T Albumin LDL Cholesterol Direct PTH Intact Salicylates Acetaminophen Crossmatch 03/19/19 03/19/19 03/19/19 05:22 05:35 08:54 WBC RBC Hgb Hct MCH MCHC RDW Lymph % (Auto) [place] % (Auto) Eos % (Auto) Lymph # [place] # Eos # Seg Neutrophils % Seg Neuts % (Manual) Lymphocytes % (Manual) Eosinophils % (Manual) Seg Neutrophils # Lymphocytes # (Manual) Eosinophils # (Manual) PT INR D-Dimer POC ABG pH POC ABG pCO2 POC ABG pO2 ABG pO2 ABG HCO3 ABG Base Excess ABG Hemoglobin Oxyhemoglobin Sodium Potassium Chloride Carbon Dioxide BUN Creatinine Glucose POC Glucose 167 H Calcium Phosphorus ALT Alkaline Phosphatase Total Creatine Kinase CK-MB (CK-2) Rel Index Troponin T Albumin LDL Cholesterol Direct PTH Intact Salicylates Acetaminophen Crossmatch See Detail See Detail 03/19/19 03/19/19 03/19/19 12:36 17:02 23:25 WBC RBC Hgb Hct MCH MCHC RDW Lymph % (Auto) [place] % (Auto) Eos % (Auto) Lymph # [place] # Eos # Seg Neutrophils % Seg Neuts % (Manual) Lymphocytes % (Manual) Eosinophils % (Manual) Seg Neutrophils # Lymphocytes # (Manual) Eosinophils # (Manual) PT INR D-Dimer POC ABG pH POC ABG pCO2 POC ABG pO2 ABG pO2 ABG HCO3 ABG Base Excess ABG Hemoglobin Oxyhemoglobin Sodium Potassium Chloride Carbon Dioxide BUN Creatinine Glucose POC Glucose 167 H 135 H 136 H Calcium Phosphorus ALT Alkaline Phosphatase Total Creatine Kinase CK-MB (CK-2) Rel Index Troponin T Albumin LDL Cholesterol Direct PTH Intact Salicylates Acetaminophen Crossmatch 03/20/19 03/20/19 03/20/19 05:38 08:40 08:40 WBC RBC 2.61 L Hgb 7.1 L Hct 22.0 L MCH 27 L MCHC RDW 19.6 H Lymph % (Auto) 8.2 L [place] % (Auto) 8.3 H Eos % (Auto) 5.7 H Lymph # 0.8 L [place] # Eos # 0.5 H Seg Neutrophils % 77.3 H Seg Neuts % (Manual) Lymphocytes % (Manual) Eosinophils % (Manual) Seg Neutrophils # Lymphocytes # (Manual) Eosinophils # (Manual) PT INR D-Dimer POC ABG pH POC ABG pCO2 POC ABG pO2 ABG pO2 ABG HCO3 ABG Base Excess ABG Hemoglobin Oxyhemoglobin Sodium Potassium Chloride 95.9 L Carbon Dioxide BUN 69 H Creatinine 2.8 H Glucose 115 H POC Glucose 134 H Calcium 10.5 H Phosphorus ALT Alkaline Phosphatase Total Creatine Kinase CK-MB (CK-2) Rel Index Troponin T Albumin LDL Cholesterol Direct PTH Intact Salicylates Acetaminophen Crossmatch 03/20/19 03/20/19 03/20/19 12:13 18:04 23:49 WBC RBC Hgb Hct MCH MCHC RDW Lymph % (Auto) [place] % (Auto) Eos % (Auto) Lymph # [place] # Eos # Seg Neutrophils % Seg Neuts % (Manual) Lymphocytes % (Manual) Eosinophils % (Manual) Seg Neutrophils # Lymphocytes # (Manual) Eosinophils # (Manual) PT INR D-Dimer POC ABG pH POC ABG pCO2 POC ABG pO2 ABG pO2 ABG HCO3 ABG Base Excess ABG Hemoglobin Oxyhemoglobin Sodium Potassium Chloride Carbon Dioxide BUN Creatinine Glucose POC Glucose 144 H 165 H 172 H Calcium Phosphorus ALT Alkaline Phosphatase Total Creatine Kinase CK-MB (CK-2) Rel Index Troponin T Albumin LDL Cholesterol Direct PTH Intact Salicylates Acetaminophen Crossmatch 03/21/19 03/21/19 03/21/19 05:00 06:29 06:30 WBC RBC 2.72 L Hgb 7.4 L Hct 22.9 L MCH 27 L MCHC RDW 19.4 H Lymph % (Auto) [place] % (Auto) Eos % (Auto) Lymph # [place] # Eos # Seg Neutrophils % Seg Neuts % (Manual) 81.0 H Lymphocytes % (Manual) 8.0 L Eosinophils % (Manual) 8.0 H Seg Neutrophils # Lymphocytes # (Manual) 0.7 L Eosinophils # (Manual) 0.7 H PT INR D-Dimer POC ABG pH POC ABG pCO2 POC ABG pO2 ABG pO2 ABG HCO3 ABG Base Excess ABG Hemoglobin Oxyhemoglobin Sodium Potassium Chloride Carbon Dioxide 33 H BUN 43 H Creatinine 1.7 H Glucose 145 H POC Glucose 156 H Calcium Phosphorus ALT Alkaline Phosphatase 212 H Total Creatine Kinase CK-MB (CK-2) Rel Index Troponin T Albumin 2.2 L LDL Cholesterol Direct PTH Intact Salicylates Acetaminophen Crossmatch 03/21/19 03/21/19 03/22/19 12:02 18:07 00:21 WBC RBC Hgb Hct MCH MCHC RDW Lymph % (Auto) [place] % (Auto) Eos % (Auto) Lymph # [place] # Eos # Seg Neutrophils % Seg Neuts % (Manual) Lymphocytes % (Manual) Eosinophils % (Manual) Seg Neutrophils # Lymphocytes # (Manual) Eosinophils # (Manual) PT INR D-Dimer POC ABG pH POC ABG pCO2 POC ABG pO2 ABG pO2 ABG HCO3 ABG Base Excess ABG Hemoglobin Oxyhemoglobin Sodium Potassium Chloride Carbon Dioxide BUN Creatinine Glucose POC Glucose 163 H 144 H 153 H Calcium Phosphorus ALT Alkaline Phosphatase Total Creatine Kinase CK-MB (CK-2) Rel Index Troponin T Albumin LDL Cholesterol Direct PTH Intact Salicylates Acetaminophen Crossmatch 03/22/19 03/22/19 03/22/19 05:23 05:23 05:31 WBC RBC 2.58 L Hgb 7.1 L Hct 21.8 L MCH 27 L MCHC RDW 19.2 H Lymph % (Auto) [place] % (Auto) Eos % (Auto) Lymph # [place] # Eos # Seg Neutrophils % Seg Neuts % (Manual) Lymphocytes % (Manual) Eosinophils % (Manual) Seg Neutrophils # Lymphocytes # (Manual) Eosinophils # (Manual) PT INR D-Dimer POC ABG pH POC ABG pCO2 POC ABG pO2 ABG pO2 ABG HCO3 ABG Base Excess ABG Hemoglobin Oxyhemoglobin Sodium 147 H Potassium Chloride Carbon Dioxide BUN 68 H Creatinine 2.5 H Glucose POC Glucose 116 H Calcium 10.3 H Phosphorus ALT Alkaline Phosphatase Total Creatine Kinase CK-MB (CK-2) Rel Index Troponin T Albumin LDL Cholesterol Direct PTH Intact Salicylates Acetaminophen Crossmatch 03/22/19 03/22/19 03/22/19 08:48 12:37 17:35 WBC RBC Hgb Hct MCH MCHC RDW Lymph % (Auto) [place] % (Auto) Eos % (Auto) Lymph # [place] # Eos # Seg Neutrophils % Seg Neuts % (Manual) Lymphocytes % (Manual) Eosinophils % (Manual) Seg Neutrophils # Lymphocytes # (Manual) Eosinophils # (Manual) PT INR D-Dimer POC ABG pH POC ABG pCO2 POC ABG pO2 ABG pO2 ABG HCO3 ABG Base Excess ABG Hemoglobin Oxyhemoglobin Sodium Potassium Chloride Carbon Dioxide BUN Creatinine Glucose POC Glucose 143 H 155 H Calcium Phosphorus ALT Alkaline Phosphatase Total Creatine Kinase CK-MB (CK-2) Rel Index Troponin T Albumin LDL Cholesterol Direct PTH Intact Salicylates Acetaminophen Crossmatch See Detail 03/23/19 03/23/19 03/23/19 00:07 04:00 04:00 WBC 11.2 H RBC 2.32 L Hgb 6.4 L Hct 19.7 L* MCH MCHC RDW 19.4 H Lymph % (Auto) [place] % (Auto) Eos % (Auto) Lymph # [place] # Eos # Seg Neutrophils % Seg Neuts % (Manual) Lymphocytes % (Manual) Eosinophils % (Manual) Seg Neutrophils # Lymphocytes # (Manual) Eosinophils # (Manual) PT INR D-Dimer POC ABG pH POC ABG pCO2 POC ABG pO2 ABG pO2 ABG HCO3 ABG Base Excess ABG Hemoglobin Oxyhemoglobin Sodium 147 H Potassium 5.2 H Chloride Carbon Dioxide BUN 86 H Creatinine 3.2 H Glucose 128 H POC Glucose 135 H Calcium 10.3 H Phosphorus ALT Alkaline Phosphatase Total Creatine Kinase CK-MB (CK-2) Rel Index Troponin T Albumin LDL Cholesterol Direct PTH Intact Salicylates Acetaminophen Crossmatch 03/23/19 03/23/19 03/23/19 05:21 11:36 11:36 WBC RBC Hgb 7.9 L Hct 25.0 L MCH MCHC RDW Lymph % (Auto) [place] % (Auto) Eos % (Auto) Lymph # [place] # Eos # Seg Neutrophils % Seg Neuts % (Manual) Lymphocytes % (Manual) Eosinophils % (Manual) Seg Neutrophils # Lymphocytes # (Manual) Eosinophils # (Manual) PT INR D-Dimer POC ABG pH POC ABG pCO2 POC ABG pO2 ABG pO2 ABG HCO3 ABG Base Excess ABG Hemoglobin Oxyhemoglobin Sodium Potassium Chloride Carbon Dioxide BUN Creatinine Glucose POC Glucose 132 H 147 H Calcium Phosphorus ALT Alkaline Phosphatase Total Creatine Kinase CK-MB (CK-2) Rel Index Troponin T Albumin LDL Cholesterol Direct PTH Intact Salicylates Acetaminophen Crossmatch 03/23/19 03/24/19 03/24/19 17:31 01:22 04:20 WBC 12.2 H RBC 3.05 L Hgb 8.3 L Hct 25.9 L MCH 27 L MCHC RDW 18.7 H Lymph % (Auto) [place] % (Auto) Eos % (Auto) Lymph # [place] # Eos # Seg Neutrophils % Seg Neuts % (Manual) Lymphocytes % (Manual) Eosinophils % (Manual) Seg Neutrophils # Lymphocytes # (Manual) Eosinophils # (Manual) PT INR D-Dimer POC ABG pH POC ABG pCO2 POC ABG pO2 ABG pO2 ABG HCO3 ABG Base Excess ABG Hemoglobin Oxyhemoglobin Sodium Potassium Chloride Carbon Dioxide BUN Creatinine Glucose POC Glucose 182 H 113 H Calcium Phosphorus ALT Alkaline Phosphatase Total Creatine Kinase CK-MB (CK-2) Rel Index Troponin T Albumin LDL Cholesterol Direct PTH Intact Salicylates Acetaminophen Crossmatch 03/24/19 03/24/19 04:20 11:59 WBC RBC Hgb Hct MCH MCHC RDW Lymph % (Auto) [place] % (Auto) Eos % (Auto) Lymph # [place] # Eos # Seg Neutrophils % Seg Neuts % (Manual) Lymphocytes % (Manual) Eosinophils % (Manual) Seg Neutrophils # Lymphocytes # (Manual) Eosinophils # (Manual) PT INR D-Dimer POC ABG pH POC ABG pCO2 POC ABG pO2 ABG pO2 ABG HCO3 ABG Base Excess ABG Hemoglobin Oxyhemoglobin Sodium Potassium Chloride 94.8 L Carbon Dioxide 32 H BUN 53 H Creatinine 2.3 H Glucose POC Glucose 163 H Calcium Phosphorus ALT Alkaline Phosphatase Total Creatine Kinase CK-MB (CK-2) Rel Index Troponin T Albumin LDL Cholesterol Direct PTH Intact Salicylates Acetaminophen Crossmatch Chest x-ray: report reviewed, image reviewed
--- NOTE | 2019-03-24 16:48 | Progress Note ---
Assessment and Plan Cultures: Blood cultures 12/26/2018 no growth today. Blood cultures 01/01/2019 no growth today. Wound cultures 01/02/2019 ESBL Kleb, MDR Ecoli and E raffinosus resistant to penicillin. 03/14 Sputum Cx: MDR Acinetobacter 03/14 BCx: NGTD 03/17 Sputum CX: MDR Acinetobacter Assessment: 63 y/o male with history of ESRD on HD, HTN, CAD S/P CABG, CVA, DM, Atrial Fib, Anemia, Hyperparathyroidism, Hypocalcemia, schizophrenia; well known to ID service from previous admissions, most recently on 12/26/2018 due to sepsis from unstagable necrotic sacral decubitus s/p OR on 01/01/2019 for open excisional debridement of necrotic sacral wound with ESBL Kleb, MDR Ecoli, treated with Meropenem 1 gm IV every 24 hours via tunneled catheter and Vancomycin 1 gm post HD Saturday, and Saturday for 6 weeks ending 02-16-19; readmitted: 1. Sepsis: secondary to MDR Acinetobacter pneumonia - Cultures with multidrug resistant Acinetobacter baumannii. Sensitive to Bactrim. Normally would consider a contaminant, however given his symptoms will treat. He is poor prognosis, as such will avoid aminoglycosides as long as possible. Will treat with Bactrim ESRD dosing. Discussed with pharmacy. If he fails this would need to consider aminoglycoside or Poly B/Minocycline. 2. Hypoxic respiratory failure - 2/2 fluid overload. Improving 3. DM2 4. Left 5th finger pressure ulcer: not infected 5. Sacral stage IV ulcer s/p extensive treatment - NOT infected currently; treated with Meropenem 1 gm IV every 24 hours via tunneled catheter and Vancomycin 1 gm post HD Saturday, and Saturday for 6 weeks ending 02-16-19 6. ESRD on HD Recommendations: - continue Bactrim ESRD dosing per pharmacy. Stop date 03/28 - follow up blood cultures - contact precautions - consider hospice, he will continue to develop worsening resistance and we will exhaust all therapeutic options for Acinetobacter very quicky. We will sign off for now as he is stable. Please call with new or worsening symptoms, or if any new questions arise. Sherman Shirley MD [facility] M: [phone] O: [phone] F: [phone] Subjective Date of service: 03/24/19 Principal diagnosis: respiratory failure Interval history: Non-responsive, afebrile. Objective - Exam Narrative Exam: Constitutional: Alert, cooperative. No acute distress Neck: Supple, no meningeal signs. Trach in place. Oral: dentition fair, no thrush Cardiovascular: S1, S2 normal. Respiratory: Good air entry, clear to auscultation bilaterally GI: Soft, non-tender; bowel sounds normal. No peritoneal signs. Musculoskeletal: No pedal edema, no cyanosis. Skin: No rash or abscess Neurological: Awake, trached. No gross abnormality - Constitutional Vitals: Vital Signs Temp Pulse Resp BP Pulse Ox 98.0 F 104 H 20 105/59 97 03/24/19 12:00 03/24/19 14:11 03/24/19 14:11 03/24/19 14:00 03/24/19 14:00 Temperature -Last 24 Hours Temperature 98.0 F Temperature 98.0 F Temperature 97.4 F Temperature 99.8 F Temperature 98.1 F Temperature 99.6 F Temperature 98.0 F - Labs CBC & Chem 7: 03/24/19 04:20 03/24/19 04:20 Labs: Abnormal lab results 03/23/19 03/24/19 03/24/19 Range/Units 17:31 01:22 04:20 WBC 12.2 H (4.5-11.0) K/mm3 RBC 3.05 L (3.65-5.03) M/mm3 Hgb 8.3 L (11.8-15.2) gm/dl Hct 25.9 L (35.5-45.6) % MCH 27 L (28-32) pg RDW 18.7 H (13.2-15.2) % Chloride (98-107) mmol/L Carbon Dioxide (22-30) mmol/L BUN (9-20) mg/dL Creatinine (0.8-1.5) mg/dL POC Glucose 182 H 113 H (70-105) 03/24/19 03/24/19 Range/Units 04:20 11:59 WBC (4.5-11.0) K/mm3 RBC (3.65-5.03) M/mm3 Hgb (11.8-15.2) gm/dl Hct (35.5-45.6) % MCH (28-32) pg RDW (13.2-15.2) % Chloride 94.8 L (98-107) mmol/L Carbon Dioxide 32 H (22-30) mmol/L BUN 53 H (9-20) mg/dL Creatinine 2.3 H (0.8-1.5) mg/dL POC Glucose 163 H (70-105)
--- NOTE | 2019-03-25 02:28 | XRay Report ---
CHEST 1 VIEW 03/25/2019 1:56 AM INDICATION / CLINICAL INFORMATION: follow up respiratory failure. COMPARISON: Chest x-ray 03/24/2019 FINDINGS: SUPPORT DEVICES: Tracheostomy tube and left internal jugular central venous line again project in exp ected position. HEART / MEDIASTINUM: Cardiomegaly and leadless cardiac pacemaker, unchanged. LUNGS / PLEURA: Bilateral parenchymal disease, unchanged. Small left pleural effusion again noted. No pneumothorax. ADDITIONAL FINDINGS: No significant additional findings. IMPRESSION: 1. Bilateral pneumonia and small left pleural effusion, unchanged. Signer Name: Carlos Hanley MD Signed: 03/25/2019 2:23 AM Workstation Name: [id number]
[2019-03-25] MEDS: SCOPOLAMINE TRANSDERMAL PATCH 72 HR TD SCH (03:54)
[2019-03-25] MEDS: INSULIN REGULAR, HUMAN 100 UNITS/1 ML SUB-Q SCH ×4 (06:16→18:52)
[2019-03-25] MEDS: IPRATROPIUM/ALBUTEROL SULFATE 3 ML AMPUL.NEB IH SCH ×3 (08:16→20:36)
[2019-03-25] MEDS: HEPARIN 5,000 UNIT/1 ML VIAL SUB-Q SCH ×2 (10:24→22:08)
[2019-03-25] MEDS: FAMOTIDINE 20 MG TAB PO SCH (10:24)
[2019-03-25] MEDS: risperiDONE 1 MG TAB PO SCH (10:24)
[2019-03-25] MEDS: SERTRALINE 100 MG TAB PO SCH (10:24)
--- NOTE | 2019-03-25 10:29 | Progress Note ---
Assessment and Plan Assessment: * End stage renal disease (outpatient TTS schedule) * Acute hypoxic respiratory failure s/p trach * KEON pneumonia --Sputum cx: MDR Acinetobacter * Cardiomyopathy - EF 35-40% * Atrial fibrillation * History of CVA * Anemia secondary to ESRD * Secondary hyperparathyroidism Plan * Continue HD via [facility]; MWF schedule for now * UF as tolerated * Abx per ID/primary team - on Bactrim * Nutrition per primary team * Dose medications for renal function * Epogen TID prn - dose increased to 20k TIW * AM labs Subjective Date of service: 03/25/19 Principal diagnosis: respiratory failure Interval history: No acute events overnight Objective - Vital Signs Vital signs: Vital Signs - 12hr 03/24/19 03/24/19 03/24/19 23:00 23:20 23:55 Temperature 98.6 F Pulse Rate 107 H 104 H Pulse Rate [ Anterior Bilateral Throughout] Pulse Rate [ Brachial] Pulse Rate [ Throughout] Respiratory 19 20 Rate Respiratory Rate [Anterior Bilateral Throughout] Respiratory Rate [ Throughout] Blood Pressure 116/65 126/74 O2 Sat by Pulse 99 100 Oximetry O2 Sat by Pulse Oximetry [ Assessment] 03/25/19 03/25/19 03/25/19 00:00 01:00 02:00 Temperature Pulse Rate 109 H 108 H 108 H Pulse Rate [ Anterior Bilateral Throughout] Pulse Rate [ Brachial] Pulse Rate [ Throughout] Respiratory 23 26 H 21 Rate Respiratory Rate [Anterior Bilateral Throughout] Respiratory Rate [ Throughout] Blood Pressure 110/71 110/59 116/65 O2 Sat by Pulse 99 99 100 Oximetry O2 Sat by Pulse Oximetry [ Assessment] 03/25/19 03/25/19 03/25/19 03:00 04:00 05:00 Temperature 98.5 F Pulse Rate 110 H 107 H 113 H Pulse Rate [ Anterior Bilateral Throughout] Pulse Rate [ 113 H Brachial] Pulse Rate [ Throughout] Respiratory 21 22 17 Rate Respiratory Rate [Anterior Bilateral Throughout] Respiratory Rate [ Throughout] Blood Pressure 107/65 112/71 102/65 O2 Sat by Pulse 100 100 99 Oximetry O2 Sat by Pulse Oximetry [ Assessment] 03/25/19 03/25/19 03/25/19 06:00 07:00 08:00 Temperature 97.4 F L Pulse Rate 109 H 113 H 114 H Pulse Rate [ Anterior Bilateral Throughout] Pulse Rate [ Brachial] Pulse Rate [ Throughout] Respiratory 21 23 19 Rate Respiratory Rate [Anterior Bilateral Throughout] Respiratory Rate [ Throughout] Blood Pressure 120/72 126/65 157/62 O2 Sat by Pulse 100 96 96 Oximetry O2 Sat by Pulse 100 Oximetry [ Assessment] 03/25/19 03/25/19 03/25/19 08:17 08:18 09:00 Temperature Pulse Rate 121 H Pulse Rate [ 115 H Anterior Bilateral Throughout] Pulse Rate [ Brachial] Pulse Rate [ 115 H Throughout] Respiratory 18 Rate Respiratory 33 H Rate [Anterior Bilateral Throughout] Respiratory 32 H Rate [ Throughout] Blood Pressure 145/84 O2 Sat by Pulse 95 98 Oximetry O2 Sat by Pulse Oximetry [ Assessment] - General Appearance General appearance: chronically ill, frail EENT: ATNC Neck: other (trach) Respiratory: Present: Clear to Ascultation Cardiology: tachycardia Gastrointestinal: normal, other (PEG, ostomy) Integumentary: warm and dry Musculoskeletal: other (no edema) Psychiatric: cooperative - Lab 03/24/19 04:20 03/24/19 04:20 Most recent lab results ABG pH 7.424 pH Units (7.350-7.450) 03/19/19 04:23 ABG pCO2 48.0 mm Hg 03/19/19 04:23 ABG pO2 78.3 mm Hg (80.0-90.0) L 03/19/19 04:23 ABG HCO3 30.7 mmol/L (20.0-26.0) H 03/19/19 04:23 ABG O2 Saturation 97.0 % (95.0-99.0) 03/19/19 04:23 Calcium 10.2 mg/dL (8.4-10.2) 03/24/19 04:20 Phosphorus 3.10 mg/dL (2.5-4.5) 03/15/19 04:38 Magnesium 2.00 mg/dL (1.7-2.3) 03/21/19 05:00 Medications & Allergies - Medications Allergies/Adverse Reactions: Allergies haloperidol [From Haldol] Adverse Reaction (Verified 03/13/18 12:10) Unknown haloperidol lactate [From Haldol] Adverse Reaction (Verified 03/13/18 12:10) Unknown Home Medications: Home Medications Medication Instructions Recorded Confirmed Last Taken Type risperiDONE [RisperDAL] 1 mg PO QAM 03/13/18 02/21/19 Unknown History Sertraline [Zoloft] 100 mg PO QDAY 08/26/18 02/21/19 Unknown History Polyethylene Glycol 3350 [Miralax 17 gm PO QDAY #30 packet 11/05/18 02/21/19 Unknown Rx 3350] Aspirin EC [Halfprin EC] 81 mg PO DAILY #30 11/19/18 02/21/19 Unknown Rx Docusate Sodium [Colace CAP] 100 mg PO BID #60 11/19/18 02/21/19 Unknown Rx Folic Acid [Folvite] 1 mg PO DAILY #30 tab 11/19/18 02/21/19 Unknown Rx Famotidine [Pepcid] 20 mg PO DAILY tablet 12/08/18 02/21/19 Unknown Rx Gabapentin [Neurontin] 100 mg PO QHS capsule 12/08/18 02/21/19 Unknown Rx Metoprolol [Lopressor TAB] 50 mg PO BID 30 Days tablet 12/08/18 02/21/19 Unknown Rx Sevelamer Carbonate [Renvela] 800 mg PO TIDWM tablet 12/08/18 02/21/19 Unknown Rx hydrALAZINE [Apresoline TAB] 100 mg PO Q8HR #120 tablet 12/08/18 02/21/19 Unknown Rx Acetaminophen [Acetaminophen TAB] 650 mg PO Q12H PRN 12/15/18 02/21/19 Unknown History Glucagon,Human Recombinant 1 mg IJ Q15MIN PRN 12/15/18 02/21/19 Unknown History [Glucagon Emergency Kit] Insulin Aspart [NovoLOG 100 See Protocol SQ QWEEK 12/15/18 02/21/19 Unknown History UNITS/ML VIAL] Active Medications: Generic Name Dose Route Start Last Admin Trade Name Freq PRN Reason Stop Dose Admin Albuterol/Ipratropium 1 ampul 02/24/19 20:00 03/25/19 08:16 Duoneb *Not For Prn Use* IH 1 ampul TIDRT SANCHEZ Administration Lipase/Protease/Amylase 1 each 03/05/19 14:04 [place]rientos 10,500 Unit FEEDTUBE PRN PRN For Clogged Feeding Tube Epoetin Solitario 20,000 unit 03/24/19 11:17 Procrit IV UMA PRN hemodialysis Famotidine 20 mg 02/23/19 10:00 03/25/19 10:24 Pepcid PO 20 mg DAILY SANCHEZ Administration Heparin Sodium (Porcine) 5,000 unit 03/04/19 22:00 03/24/19 22:15 Heparin SUB-Q 5,000 unit Q12HR SANCHEZ Administration Hydrophilic Ointment 1 applic 02/21/19 18:24 03/05/19 08:16 Vaseline Lip Therapy TP 1 applic Q2HR PRN Administration Dry Lips Sodium Chloride 100 mls @ 999 mls/hr 02/26/19 09:00 Nacl 0.9% IV UMA PRN Hypotension Norepinephrine 8 mg/ Sodium 250 mls @ 3.75 mls/hr 03/18/19 13:00 03/19/19 09:17 Chloride IV 0 mcg/min TITR SANCHEZ 0 mls/hr Titration Protocol 2 MCG/MIN Insulin Human Regular 0 units 02/26/19 12:00 03/25/19 06:16 Humulin R SUB-Q Not Given Q6HR SANCHEZ Protocol Metoprolol Tartrate 2.5 mg 02/28/19 12:06 03/15/19 05:15 Lopressor IV 2.5 mg Q4HR PRN Administration Tachycardia Multi-Ingred Cream/Lotion/Oil/Oint 1 applic 02/21/19 18:24 Artificial Tears Ophth Oint OU Q4HR PRN Dry Eye(s) Risperidone 1 mg 02/25/19 13:00 03/25/19 10:24 Risperdal PO 1 mg DAILY SANCHEZ Administration Scopolamine 1 each 03/13/19 04:00 03/25/19 03:54 Transderm-Scop TD 1 each Q3D SANCHEZ Administration Sertraline HCl 100 mg 02/25/19 13:00 03/25/19 10:24 Zoloft PO 100 mg DAILY SANCHEZ Administration Simple Syrup 15 ml 03/05/19 14:04 Simple Syrup FEEDTUBE PRN PRN Hypoglycemia Simple Syrup 30 ml 03/05/19 14:04 Simple Syrup FEEDTUBE PRN PRN Hypoglycemia Sodium Bicarbonate 325 mg 03/05/19 14:04 Sodium Bicarbonate FEEDTUBE PRN PRN For Clogged Feeding Tube Tramadol HCl 50 mg 03/05/19 10:08 03/18/19 04:38 Ultram PO 50 mg Q6H PRN Administration Pain, Moderate (4-6) Trimethoprim/Sulfamethoxazole 160 mg 03/19/19 15:00 03/24/19 10:53 Bactrim 200-40 Mg/5 Ml PO 03/28/19 23:59 160 mg Q24HR SANCHEZ Administration
[2019-03-25] MEDS: SULFAMETHOXAZOLE/TRIMETHOPRIM 200-40 MG/5 ML ORAL LIQD 30 ML PO SCH (10:37)
--- NOTE | 2019-03-25 13:29 | Progress Note ---
Assessment and Plan Imp: 1. Acute encephalopathy, probably metabolic or toxic 2. A/C systolic CHF 3. Dilated CMP 4. Pulm HTN 5. ESRD 6. RUL atelectasis, probably mucous plugging -> resolved 7. KEON pneumonia Rec: 1. Chest PT, Duonebs 2. Tolerating Tpiece; monitor 3. Avoid sedatives; resumed psych meds 4. DVT and GI PPx 5. TFs per PEG 6. HD per renal 7. Bactrim versus Acinetobacter sp. per ID recs; f/u CXR periodically to ensure resolution of KEON density 8. Complex decision-making 9. Prognosis is poor; patient hospice-appropriate, family refuses Await placement No family present Subjective Date of service: 03/25/19 Principal diagnosis: respiratory failure Interval history: No events. Mentation near usual poor baseline. Cannot give hx. On 28% per Tpiece. Active Medications Albuterol/Ipratropium (Duoneb *Not For Prn Use*) 1 ampul IH TIDRT [facility] Last Admin: 03/25/19 08:16 Dose: 1 ampul Documented by: Lipase/Protease/Amylase ([place] 10,500 Unit) 1 each FEEDTUBE PRN PRN PRN Reason: For Clogged Feeding Tube Epoetin Solitario (Procrit) 20,000 unit IV UMA PRN PRN Reason: hemodialysis Famotidine (Pepcid) 20 mg PO DAILY [facility] Last Admin: 03/25/19 10:24 Dose: 20 mg Documented by: Heparin Sodium (Porcine) (Heparin) 5,000 unit SUB-Q Q12HR [facility] Last Admin: 03/25/19 10:24 Dose: 5,000 unit Documented by: Hydrophilic Ointment (Vaseline Lip Therapy) 1 applic TP Q2HR PRN PRN Reason: Dry Lips Last Admin: 03/05/19 08:16 Dose: 1 applic Documented by: Sodium Chloride (Nacl 0.9%) 100 mls @ 999 mls/hr IV UMA PRN PRN Reason: Hypotension Norepinephrine 8 mg/ Sodium (Chloride) 250 mls @ 3.75 mls/hr IV TITR SANCHEZ; Helio col Last Titration: 03/19/19 09:17 Dose: 0 mcg/min, 0 mls/hr Documented by: Insulin Human Regular (Humulin R) 0 units SUB-Q Q6HR [facility]; Protocol Last Admin: 03/25/19 12:59 Dose: Not Given Documented by: Metoprolol Tartrate (Lopressor) 2.5 mg IV Q4HR PRN PRN Reason: Tachycardia Last Admin: 03/15/19 05:15 Dose: 2.5 mg Documented by: Multi-Ingred Cream/Lotion/Oil/Oint (Artificial Tears Ophth Oint) 1 applic OU Q4HR PRN PRN Reason: Dry Eye(s) Risperidone (Risperdal) 1 mg PO DAILY [facility] Last Admin: 03/25/19 10:24 Dose: 1 mg Documented by: Scopolamine (Transderm-Scop) 1 each TD Q3D [facility] Last Admin: 03/25/19 03:54 Dose: 1 each Documented by: Sertraline HCl (Zoloft) 100 mg PO DAILY [facility] Last Admin: 03/25/19 10:24 Dose: 100 mg Documented by: Simple Syrup (Simple Syrup) 15 ml FEEDTUBE PRN PRN PRN Reason: Hypoglycemia Simple Syrup (Simple Syrup) 30 ml FEEDTUBE PRN PRN PRN Reason: Hypoglycemia Sodium Bicarbonate (Sodium Bicarbonate) 325 mg FEEDTUBE PRN PRN PRN Reason: For Clogged Feeding Tube Tramadol HCl (Ultram) 50 mg PO Q6H PRN PRN Reason: Pain, Moderate (4-6) Last Admin: 03/18/19 04:38 Dose: 50 mg Documented by: Trimethoprim/Sulfamethoxazole (Bactrim 200-40 Mg/5 Ml) 160 mg PO Q24HR [facility] Stop: 03/28/19 23:59 Last Admin: 03/25/19 10:37 Dose: 160 mg Documented by: Objective Vital Signs - 12hr 03/25/19 03/25/19 03/25/19 02:00 03:00 04:00 Temperature 98.5 F Pulse Rate 108 H 110 H 107 H Pulse Rate [ Anterior Bilateral Throughout] Pulse Rate [ 113 H Brachial] Pulse Rate [ From Monitor] Pulse Rate [ Throughout] Respiratory 21 21 22 Rate Respiratory Rate [Anterior Bilateral Throughout] Respiratory Rate [ Throughout] Blood Pressure 116/65 107/65 112/71 O2 Sat by Pulse 100 100 100 Oximetry O2 Sat by Pulse Oximetry [ Assessment] 03/25/19 03/25/19 03/25/19 05:00 06:00 07:00 Temperature Pulse Rate 113 H 109 H 113 H Pulse Rate [ Anterior Bilateral Throughout] Pulse Rate [ Brachial] Pulse Rate [ From Monitor] Pulse Rate [ Throughout] Respiratory 17 21 23 Rate Respiratory Rate [Anterior Bilateral Throughout] Respiratory Rate [ Throughout] Blood Pressure 102/65 120/72 126/65 O2 Sat by Pulse 99 100 96 Oximetry O2 Sat by Pulse 100 Oximetry [ Assessment] 03/25/19 03/25/19 03/25/19 08:00 08:17 08:18 Temperature 97.4 F L Pulse Rate 114 H Pulse Rate [ 115 H Anterior Bilateral Throughout] Pulse Rate [ Brachial] Pulse Rate [ From Monitor] Pulse Rate [ 115 H Throughout] Respiratory 19 Rate Respiratory 33 H Rate [Anterior Bilateral Throughout] Respiratory 32 H Rate [ Throughout] Blood Pressure 157/62 O2 Sat by Pulse 96 95 Oximetry O2 Sat by Pulse Oximetry [ Assessment] 03/25/19 03/25/19 03/25/19 09:00 10:00 11:00 Temperature Pulse Rate 121 H 119 H 123 H Pulse Rate [ Anterior Bilateral Throughout] Pulse Rate [ Brachial] Pulse Rate [ From Monitor] Pulse Rate [ Throughout] Respiratory 18 11 L 40 H Rate Respiratory Rate [Anterior Bilateral Throughout] Respiratory Rate [ Throughout] Blood Pressure 145/84 134/106 122/69 O2 Sat by Pulse 98 95 97 Oximetry O2 Sat by Pulse Oximetry [ Assessment] 03/25/19 03/25/19 12:00 13:00 Temperature 97.5 F L Pulse Rate 114 H 117 H Pulse Rate [ Anterior Bilateral Throughout] Pulse Rate [ Brachial] Pulse Rate [ 119 H From Monitor] Pulse Rate [ Throughout] Respiratory 17 25 H Rate Respiratory Rate [Anterior Bilateral Throughout] Respiratory Rate [ Throughout] Blood Pressure 126/67 120/67 O2 Sat by Pulse 97 97 Oximetry O2 Sat by Pulse Oximetry [ Assessment] Constitutional: no acute distress, alert Eyes: non-icteric ENT: oropharynx moist Neck: supple Effort: normal Ascultation: Bilateral: diminished breath sounds, other (coarse BS bilaterally) Percussion: Bilateral: not dull Cardiovascular: other (tachy, RR; no mrg) Gastrointestinal: normoactive bowel sounds, soft, non-tender, non-distended, other (ostomy in place, brown stool) Extremities: no cyanosis, no edema, pink and warm Neurologic: other (mild weakness LUE, o/w nonfocal) Psychiatric: other (unable to assess) CBC and BMP: 03/24/19 04:20 03/24/19 04:20 ABG, PT/INR, D-dimer: ABG POC ABG pH 7.510 (7.35-7.45) H 03/18/19 06:38 ABG pH 7.424 pH Units (7.350-7.450) 03/19/19 04:23 POC ABG pCO2 38.9 (35-45) 03/18/19 06:38 ABG pCO2 48.0 mm Hg 03/19/19 04:23 POC ABG pO2 164 (80-105) H 03/18/19 06:38 ABG pO2 78.3 mm Hg (80.0-90.0) L 03/19/19 04:23 POC ABG HCO3 31.0 (22-26 mml/L) 03/18/19 06:38 POC ABG Total CO2 32 (23-27mmol/L) 03/18/19 06:38 POC ABG O2 Sat 100 03/18/19 06:38 ABG O2 Saturation 97.0 % (95.0-99.0) 03/19/19 04:23 PT/INR, D-dimer PT 16.3 Sec. (12.2-14.9) H 03/01/19 09:39 INR 1.35 (0.87-1.13) H 03/01/19 09:39 2987.82 ng/mlDDU (0-234) H 02/22/19 05:54 Abnormal lab findings: Abnormal Labs 02/21/19 02/21/19 02/21/19 18:30 18:30 18:30 WBC RBC 3.26 L Hgb 8.8 L Hct 29.0 L MCH 27 L MCHC 30 L RDW 19.1 H Lymph % (Auto) 6.1 L [place] % (Auto) Eos % (Auto) Lymph # 0.4 L [place] # Eos # Seg Neutrophils % 86.2 H Seg Neuts % (Manual) Lymphocytes % (Manual) Eosinophils % (Manual) Seg Neutrophils # Lymphocytes # (Manual) Eosinophils # (Manual) PT INR D-Dimer POC ABG pH POC ABG pCO2 POC ABG pO2 ABG pO2 ABG HCO3 ABG Base Excess ABG Hemoglobin Oxyhemoglobin Sodium 133 L Potassium 3.3 L Chloride 93.1 L Carbon Dioxide 33 H BUN Creatinine Glucose 161 H POC Glucose Calcium Phosphorus ALT Alkaline Phosphatase 136 H Total Creatine Kinase 37 L CK-MB (CK-2) Rel Index Troponin T 0.192 H* Albumin 2.4 L LDL Cholesterol Direct 36 L PTH Intact Salicylates Acetaminophen Crossmatch 02/21/19 02/21/19 02/21/19 18:42 20:04 20:04 WBC RBC Hgb Hct MCH MCHC RDW Lymph % (Auto) [place] % (Auto) Eos % (Auto) Lymph # [place] # Eos # Seg Neutrophils % Seg Neuts % (Manual) Lymphocytes % (Manual) Eosinophils % (Manual) Seg Neutrophils # Lymphocytes # (Manual) Eosinophils # (Manual) PT INR D-Dimer POC ABG pH POC ABG pCO2 56.7 H POC ABG pO2 291 H ABG pO2 ABG HCO3 ABG Base Excess ABG Hemoglobin Oxyhemoglobin Sodium Potassium Chloride Carbon Dioxide BUN Creatinine Glucose POC Glucose Calcium Phosphorus ALT Alkaline Phosphatase Total Creatine Kinase CK-MB (CK-2) Rel Index Troponin T Albumin LDL Cholesterol Direct PTH Intact Salicylates < 0.3 L Acetaminophen < 5.0 L Crossmatch 02/21/19 02/22/19 02/22/19 22:35 03:42 03:42 WBC RBC 3.20 L Hgb 8.8 L Hct 27.6 L MCH MCHC RDW 18.9 H Lymph % (Auto) 7.4 L [place] % (Auto) Eos % (Auto) Lymph # 0.7 L [place] # Eos # Seg Neutrophils % 84.7 H Seg Neuts % (Manual) Lymphocytes % (Manual) Eosinophils % (Manual) Seg Neutrophils # Lymphocytes # (Manual) Eosinophils # (Manual) PT INR D-Dimer POC ABG pH POC ABG pCO2 POC ABG pO2 ABG pO2 ABG HCO3 ABG Base Excess ABG Hemoglobin Oxyhemoglobin Sodium 134 L Potassium 2.6 L* D Chloride Carbon Dioxide BUN Creatinine Glucose POC Glucose Calcium Phosphorus ALT Alkaline Phosphatase Total Creatine Kinase CK-MB (CK-2) Rel Index 5.2 H Troponin T 0.202 H* Albumin LDL Cholesterol Direct PTH Intact Salicylates Acetaminophen Crossmatch 02/22/19 02/22/19 02/22/19 03:42 05:54 09:04 WBC RBC Hgb Hct MCH MCHC RDW Lymph % (Auto) [place] % (Auto) Eos % (Auto) Lymph # [place] # Eos # Seg Neutrophils % Seg Neuts % (Manual) Lymphocytes % (Manual) Eosinophils % (Manual) Seg Neutrophils # Lymphocytes # (Manual) Eosinophils # (Manual) PT INR D-Dimer 2987.82 H POC ABG pH 7.451 H POC ABG pCO2 POC ABG pO2 ABG pO2 ABG HCO3 ABG Base Excess ABG Hemoglobin Oxyhemoglobin Sodium Potassium Chloride Carbon Dioxide BUN Creatinine Glucose POC Glucose Calcium Phosphorus ALT Alkaline Phosphatase Total Creatine Kinase CK-MB (CK-2) Rel Index 5.7 H Troponin T 0.193 H* Albumin LDL Cholesterol Direct PTH Intact Salicylates Acetaminophen Crossmatch 02/22/19 02/22/19 02/23/19 10:36 23:56 00:52 WBC RBC Hgb Hct MCH MCHC RDW Lymph % (Auto) [place] % (Auto) Eos % (Auto) Lymph # [place] # Eos # Seg Neutrophils % Seg Neuts % (Manual) Lymphocytes % (Manual) Eosinophils % (Manual) Seg Neutrophils # Lymphocytes # (Manual) Eosinophils # (Manual) PT INR D-Dimer POC ABG pH POC ABG pCO2 POC ABG pO2 ABG pO2 ABG HCO3 ABG Base Excess ABG Hemoglobin Oxyhemoglobin Sodium Potassium 3.1 L Chloride Carbon Dioxide BUN Creatinine Glucose POC Glucose 58 L 111 H Calcium Phosphorus ALT Alkaline Phosphatase Total Creatine Kinase CK-MB (CK-2) Rel Index Troponin T Albumin LDL Cholesterol Direct PTH Intact Salicylates Acetaminophen Crossmatch 02/23/19 02/23/19 02/23/19 05:00 06:35 14:26 WBC RBC Hgb Hct MCH MCHC RDW Lymph % (Auto) [place] % (Auto) Eos % (Auto) Lymph # [place] # Eos # Seg Neutrophils % Seg Neuts % (Manual) Lymphocytes % (Manual) Eosinophils % (Manual) Seg Neutrophils # Lymphocytes # (Manual) Eosinophils # (Manual) PT INR D-Dimer POC ABG pH POC ABG pCO2 POC ABG pO2 ABG pO2 ABG HCO3 ABG Base Excess ABG Hemoglobin Oxyhemoglobin Sodium 135 L Potassium 3.1 L Chloride Carbon Dioxide BUN 21 H Creatinine 2.0 H Glucose 57 L POC Glucose 64 L 62 L Calcium Phosphorus ALT Alkaline Phosphatase Total Creatine Kinase CK-MB (CK-2) Rel Index Troponin T Albumin LDL Cholesterol Direct PTH Intact Salicylates Acetaminophen Crossmatch 02/24/19 02/24/19 02/24/19 02:11 04:12 04:55 WBC RBC 2.84 L Hgb 7.8 L Hct 24.5 L MCH MCHC RDW 19.5 H Lymph % (Auto) [place] % (Auto) Eos % (Auto) Lymph # [place] # Eos # Seg Neutrophils % Seg Neuts % (Manual) Lymphocytes % (Manual) Eosinophils % (Manual) Seg Neutrophils # Lymphocytes # (Manual) Eosinophils # (Manual) PT INR D-Dimer POC ABG pH 7.511 H POC ABG pCO2 33.9 L POC ABG pO2 62 L ABG pO2 ABG HCO3 ABG Base Excess ABG Hemoglobin Oxyhemoglobin Sodium Potassium Chloride Carbon Dioxide BUN Creatinine Glucose POC Glucose 69 L Calcium Phosphorus ALT Alkaline Phosphatase Total Creatine Kinase CK-MB (CK-2) Rel Index Troponin T Albumin LDL Cholesterol Direct PTH Intact Salicylates Acetaminophen Crossmatch 02/24/19 02/24/19 02/25/19 04:55 05:41 04:45 WBC RBC Hgb Hct MCH MCHC RDW Lymph % (Auto) [place] % (Auto) Eos % (Auto) Lymph # [place] # Eos # Seg Neutrophils % Seg Neuts % (Manual) Lymphocytes % (Manual) Eosinophils % (Manual) Seg Neutrophils # Lymphocytes # (Manual) Eosinophils # (Manual) PT INR D-Dimer POC ABG pH 7.466 H POC ABG pCO2 POC ABG pO2 75 L ABG pO2 ABG HCO3 ABG Base Excess ABG Hemoglobin Oxyhemoglobin Sodium Potassium Chloride Carbon Dioxide BUN Creatinine 1.8 H Glucose 73 L POC Glucose 127 H Calcium Phosphorus ALT Alkaline Phosphatase Total Creatine Kinase CK-MB (CK-2) Rel Index Troponin T Albumin LDL Cholesterol Direct PTH Intact Salicylates Acetaminophen Crossmatch 02/25/19 02/25/19 02/26/19 16:34 21:33 03:45 WBC RBC 2.96 L Hgb 8.0 L Hct 25.8 L MCH 27 L MCHC 31 L RDW 20.0 H Lymph % (Auto) [place] % (Auto) Eos % (Auto) Lymph # [place] # Eos # Seg Neutrophils % Seg Neuts % (Manual) Lymphocytes % (Manual) Eosinophils % (Manual) Seg Neutrophils # Lymphocytes # (Manual) Eosinophils # (Manual) PT INR D-Dimer POC ABG pH POC ABG pCO2 POC ABG pO2 ABG pO2 ABG HCO3 ABG Base Excess ABG Hemoglobin Oxyhemoglobin Sodium Potassium Chloride Carbon Dioxide BUN Creatinine Glucose POC Glucose 141 H 106 H Calcium Phosphorus ALT Alkaline Phosphatase Total Creatine Kinase CK-MB (CK-2) Rel Index Troponin T Albumin LDL Cholesterol Direct PTH Intact Salicylates Acetaminophen Crossmatch 02/26/19 02/26/19 02/26/19 03:45 04:13 07:53 WBC RBC Hgb Hct MCH MCHC RDW Lymph % (Auto) [place] % (Auto) Eos % (Auto) Lymph # [place] # Eos # Seg Neutrophils % Seg Neuts % (Manual) Lymphocytes % (Manual) Eosinophils % (Manual) Seg Neutrophils # Lymphocytes # (Manual) Eosinophils # (Manual) PT INR D-Dimer POC ABG pH 7.470 H POC ABG pCO2 POC ABG pO2 ABG pO2 ABG HCO3 ABG Base Excess ABG Hemoglobin Oxyhemoglobin Sodium Potassium Chloride Carbon Dioxide BUN Creatinine 1.8 H Glucose POC Glucose 110 H Calcium Phosphorus ALT Alkaline Phosphatase Total Creatine Kinase CK-MB (CK-2) Rel Index Troponin T Albumin LDL Cholesterol Direct PTH Intact Salicylates Acetaminophen Crossmatch 02/26/19 02/26/19 02/27/19 11:56 17:43 00:12 WBC RBC Hgb Hct MCH MCHC RDW Lymph % (Auto) [place] % (Auto) Eos % (Auto) Lymph # [place] # Eos # Seg Neutrophils % Seg Neuts % (Manual) Lymphocytes % (Manual) Eosinophils % (Manual) Seg Neutrophils # Lymphocytes # (Manual) Eosinophils # (Manual) PT INR D-Dimer POC ABG pH POC ABG pCO2 POC ABG pO2 ABG pO2 ABG HCO3 ABG Base Excess ABG Hemoglobin Oxyhemoglobin Sodium Potassium Chloride Carbon Dioxide BUN Creatinine Glucose POC Glucose 112 H 127 H 127 H Calcium Phosphorus ALT Alkaline Phosphatase Total Creatine Kinase CK-MB (CK-2) Rel Index Troponin T Albumin LDL Cholesterol Direct PTH Intact Salicylates Acetaminophen Crossmatch 02/27/19 02/27/19 02/27/19 04:35 13:15 18:02 WBC RBC Hgb Hct MCH MCHC RDW Lymph % (Auto) [place] % (Auto) Eos % (Auto) Lymph # [place] # Eos # Seg Neutrophils % Seg Neuts % (Manual) Lymphocytes % (Manual) Eosinophils % (Manual) Seg Neutrophils # Lymphocytes # (Manual) Eosinophils # (Manual) PT INR D-Dimer POC ABG pH 7.483 H POC ABG pCO2 POC ABG pO2 61 L ABG pO2 ABG HCO3 ABG Base Excess ABG Hemoglobin Oxyhemoglobin Sodium Potassium Chloride Carbon Dioxide BUN Creatinine Glucose POC Glucose 143 H 106 H Calcium Phosphorus ALT Alkaline Phosphatase Total Creatine Kinase CK-MB (CK-2) Rel Index Troponin T Albumin LDL Cholesterol Direct PTH Intact Salicylates Acetaminophen Crossmatch 02/28/19 02/28/19 02/28/19 05:50 11:59 17:52 WBC RBC Hgb Hct MCH MCHC RDW Lymph % (Auto) [place] % (Auto) Eos % (Auto) Lymph # [place] # Eos # Seg Neutrophils % Seg Neuts % (Manual) Lymphocytes % (Manual) Eosinophils % (Manual) Seg Neutrophils # Lymphocytes # (Manual) Eosinophils # (Manual) PT INR D-Dimer POC ABG pH POC ABG pCO2 POC ABG pO2 ABG pO2 ABG HCO3 ABG Base Excess ABG Hemoglobin Oxyhemoglobin Sodium Potassium Chloride Carbon Dioxide BUN Creatinine Glucose POC Glucose 134 H 128 H 142 H Calcium Phosphorus ALT Alkaline Phosphatase Total Creatine Kinase CK-MB (CK-2) Rel Index Troponin T Albumin LDL Cholesterol Direct PTH Intact Salicylates Acetaminophen Crossmatch 02/28/19 03/01/19 03/01/19 23:13 05:40 09:39 WBC RBC Hgb Hct MCH MCHC RDW Lymph % (Auto) [place] % (Auto) Eos % (Auto) Lymph # [place] # Eos # Seg Neutrophils % Seg Neuts % (Manual) Lymphocytes % (Manual) Eosinophils % (Manual) Seg Neutrophils # Lymphocytes # (Manual) Eosinophils # (Manual) PT 16.3 H INR 1.35 H D-Dimer POC ABG pH POC ABG pCO2 POC ABG pO2 ABG pO2 ABG HCO3 ABG Base Excess ABG Hemoglobin Oxyhemoglobin Sodium Potassium Chloride Carbon Dioxide BUN Creatinine Glucose POC Glucose 112 H 111 H Calcium Phosphorus ALT Alkaline Phosphatase Total Creatine Kinase CK-MB (CK-2) Rel Index Troponin T Albumin LDL Cholesterol Direct PTH Intact Salicylates Acetaminophen Crossmatch 03/01/19 03/01/19 03/01/19 11:56 13:54 17:59 WBC RBC Hgb Hct MCH MCHC RDW Lymph % (Auto) [place] % (Auto) Eos % (Auto) Lymph # [place] # Eos # Seg Neutrophils % Seg Neuts % (Manual) Lymphocytes % (Manual) Eosinophils % (Manual) Seg Neutrophils # Lymphocytes # (Manual) Eosinophils # (Manual) PT INR D-Dimer POC ABG pH POC ABG pCO2 POC ABG pO2 ABG pO2 ABG HCO3 ABG Base Excess ABG Hemoglobin Oxyhemoglobin Sodium Potassium Chloride Carbon Dioxide BUN 33 H Creatinine 2.8 H D Glucose 176 H POC Glucose 199 H 147 H Calcium Phosphorus ALT Alkaline Phosphatase Total Creatine Kinase CK-MB (CK-2) Rel Index Troponin T Albumin LDL Cholesterol Direct PTH Intact Salicylates Acetaminophen Crossmatch 03/02/19 03/02/19 03/02/19 05:15 05:15 05:15 WBC RBC 2.73 L Hgb 7.4 L Hct 23.0 L MCH 27 L MCHC RDW 19.9 H Lymph % (Auto) [place] % (Auto) 7.9 H Eos % (Auto) 7.6 H Lymph # 1.0 L [place] # Eos # 0.5 H Seg Neutrophils % Seg Neuts % (Manual) Lymphocytes % (Manual) Eosinophils % (Manual) Seg Neutrophils # Lymphocytes # (Manual) Eosinophils # (Manual) PT INR D-Dimer POC ABG pH POC ABG pCO2 POC ABG pO2 ABG pO2 ABG HCO3 ABG Base Excess ABG Hemoglobin Oxyhemoglobin Sodium Potassium Chloride Carbon Dioxide BUN 43 H Creatinine 3.2 H Glucose POC Glucose Calcium Phosphorus 2.30 L ALT Alkaline Phosphatase Total Creatine Kinase CK-MB (CK-2) Rel Index Troponin T Albumin LDL Cholesterol Direct PTH Intact 267.6 H Salicylates Acetaminophen Crossmatch 03/02/19 03/02/19 03/03/19 12:32 18:20 13:30 WBC RBC Hgb Hct MCH MCHC RDW Lymph % (Auto) [place] % (Auto) Eos % (Auto) Lymph # [place] # Eos # Seg Neutrophils % Seg Neuts % (Manual) Lymphocytes % (Manual) Eosinophils % (Manual) Seg Neutrophils # Lymphocytes # (Manual) Eosinophils # (Manual) PT INR D-Dimer POC ABG pH POC ABG pCO2 POC ABG pO2 ABG pO2 ABG HCO3 ABG Base Excess ABG Hemoglobin Oxyhemoglobin Sodium Potassium Chloride 97.3 L Carbon Dioxide BUN 26 H Creatinine 2.2 H Glucose 73 L POC Glucose 111 H 156 H Calcium Phosphorus ALT Alkaline Phosphatase Total Creatine Kinase CK-MB (CK-2) Rel Index Troponin T Albumin LDL Cholesterol Direct PTH Intact Salicylates Acetaminophen Crossmatch 03/04/19 03/04/19 03/04/19 00:02 05:37 05:40 WBC RBC 2.63 L Hgb 7.2 L Hct 22.2 L MCH MCHC RDW 20.2 H Lymph % (Auto) 10.5 L [place] % (Auto) Eos % (Auto) 4.6 H Lymph # 0.7 L [place] # Eos # Seg Neutrophils % 76.9 H Seg Neuts % (Manual) Lymphocytes % (Manual) Eosinophils % (Manual) Seg Neutrophils # Lymphocytes # (Manual) Eosinophils # (Manual) PT INR D-Dimer POC ABG pH POC ABG pCO2 POC ABG pO2 ABG pO2 ABG HCO3 ABG Base Excess ABG Hemoglobin Oxyhemoglobin Sodium Potassium Chloride Carbon Dioxide BUN Creatinine Glucose POC Glucose 136 H 123 H Calcium Phosphorus ALT Alkaline Phosphatase Total Creatine Kinase CK-MB (CK-2) Rel Index Troponin T Albumin LDL Cholesterol Direct PTH Intact Salicylates Acetaminophen Crossmatch 03/04/19 03/04/19 03/04/19 05:40 11:39 23:20 WBC RBC Hgb Hct MCH MCHC RDW Lymph % (Auto) [place] % (Auto) Eos % (Auto) Lymph # [place] # Eos # Seg Neutrophils % Seg Neuts % (Manual) Lymphocytes % (Manual) Eosinophils % (Manual) Seg Neutrophils # Lymphocytes # (Manual) Eosinophils # (Manual) PT INR D-Dimer POC ABG pH POC ABG pCO2 POC ABG pO2 ABG pO2 ABG HCO3 ABG Base Excess ABG Hemoglobin Oxyhemoglobin Sodium Potassium Chloride Carbon Dioxide BUN 34 H Creatinine 2.7 H Glucose 114 H POC Glucose 175 H 151 H Calcium Phosphorus ALT Alkaline Phosphatase Total Creatine Kinase CK-MB (CK-2) Rel Index Troponin T Albumin LDL Cholesterol Direct PTH Intact Salicylates Acetaminophen Crossmatch 03/05/19 03/05/19 03/05/19 05:37 12:08 17:11 WBC RBC Hgb Hct MCH MCHC RDW Lymph % (Auto) [place] % (Auto) Eos % (Auto) Lymph # [place] # Eos # Seg Neutrophils % Seg Neuts % (Manual) Lymphocytes % (Manual) Eosinophils % (Manual) Seg Neutrophils # Lymphocytes # (Manual) Eosinophils # (Manual) PT INR D-Dimer POC ABG pH POC ABG pCO2 POC ABG pO2 ABG pO2 ABG HCO3 ABG Base Excess ABG Hemoglobin Oxyhemoglobin Sodium Potassium Chloride Carbon Dioxide BUN Creatinine Glucose POC Glucose 134 H 135 H 135 H Calcium Phosphorus ALT Alkaline Phosphatase Total Creatine Kinase CK-MB (CK-2) Rel Index Troponin T Albumin LDL Cholesterol Direct PTH Intact Salicylates Acetaminophen Crossmatch 03/06/19 03/06/19 03/06/19 00:16 13:05 18:09 WBC RBC Hgb Hct MCH MCHC RDW Lymph % (Auto) [place] % (Auto) Eos % (Auto) Lymph # [place] # Eos # Seg Neutrophils % Seg Neuts % (Manual) Lymphocytes % (Manual) Eosinophils % (Manual) Seg Neutrophils # Lymphocytes # (Manual) Eosinophils # (Manual) PT INR D-Dimer POC ABG pH POC ABG pCO2 POC ABG pO2 ABG pO2 ABG HCO3 ABG Base Excess ABG Hemoglobin Oxyhemoglobin Sodium Potassium Chloride Carbon Dioxide BUN Creatinine Glucose POC Glucose 117 H 113 H 131 H Calcium Phosphorus ALT Alkaline Phosphatase Total Creatine Kinase CK-MB (CK-2) Rel Index Troponin T Albumin LDL Cholesterol Direct PTH Intact Salicylates Acetaminophen Crossmatch 03/07/19 03/08/19 03/08/19 05:25 05:33 16:00 WBC RBC 2.44 L Hgb 6.6 L Hct 20.8 L MCH 27 L MCHC RDW 19.2 H Lymph % (Auto) [place] % (Auto) Eos % (Auto) 8.6 H Lymph # 0.8 L [place] # Eos # 0.5 H Seg Neutrophils % 70.7 H Seg Neuts % (Manual) Lymphocytes % (Manual) Eosinophils % (Manual) Seg Neutrophils # Lymphocytes # (Manual) Eosinophils # (Manual) PT INR D-Dimer POC ABG pH POC ABG pCO2 POC ABG pO2 ABG pO2 ABG HCO3 ABG Base Excess ABG Hemoglobin Oxyhemoglobin Sodium Potassium Chloride Carbon Dioxide BUN Creatinine Glucose POC Glucose 106 H 108 H Calcium Phosphorus ALT Alkaline Phosphatase Total Creatine Kinase CK-MB (CK-2) Rel Index Troponin T Albumin LDL Cholesterol Direct PTH Intact Salicylates Acetaminophen Crossmatch 03/08/19 03/08/19 03/08/19 16:00 18:38 Unknown WBC RBC Hgb Hct MCH MCHC RDW Lymph % (Auto) [place] % (Auto) Eos % (Auto) Lymph # [place] # Eos # Seg Neutrophils % Seg Neuts % (Manual) Lymphocytes % (Manual) Eosinophils % (Manual) Seg Neutrophils # Lymphocytes # (Manual) Eosinophils # (Manual) PT INR D-Dimer POC ABG pH POC ABG pCO2 POC ABG pO2 ABG pO2 ABG HCO3 ABG Base Excess ABG Hemoglobin Oxyhemoglobin Sodium Potassium 5.4 H D Chloride Carbon Dioxide BUN 47 H Creatinine 2.6 H Glucose POC Glucose 123 H Calcium Phosphorus ALT < 5 L Alkaline Phosphatase Total Creatine Kinase CK-MB (CK-2) Rel Index Troponin T Albumin 2.2 L LDL Cholesterol Direct PTH Intact Salicylates Acetaminophen Crossmatch See Detail 03/09/19 03/09/19 03/09/19 10:48 12:28 13:53 WBC RBC 2.85 L Hgb 7.7 L Hct 24.2 L MCH 27 L MCHC RDW 18.7 H Lymph % (Auto) [place] % (Auto) Eos % (Auto) Lymph # [place] # Eos # Seg Neutrophils % Seg Neuts % (Manual) Lymphocytes % (Manual) Eosinophils % (Manual) Seg Neutrophils # Lymphocytes # (Manual) Eosinophils # (Manual) PT INR D-Dimer POC ABG pH POC ABG pCO2 POC ABG pO2 ABG pO2 ABG HCO3 30.5 H ABG Base Excess 5.6 H ABG Hemoglobin 8.1 L Oxyhemoglobin 93.8 L Sodium Potassium Chloride Carbon Dioxide BUN Creatinine Glucose POC Glucose 114 H Calcium Phosphorus ALT Alkaline Phosphatase Total Creatine Kinase CK-MB (CK-2) Rel Index Troponin T Albumin LDL Cholesterol Direct PTH Intact Salicylates Acetaminophen Crossmatch 03/09/19 03/09/19 03/10/19 17:58 23:53 12:01 WBC RBC Hgb Hct MCH MCHC RDW Lymph % (Auto) [place] % (Auto) Eos % (Auto) Lymph # [place] # Eos # Seg Neutrophils % Seg Neuts % (Manual) Lymphocytes % (Manual) Eosinophils % (Manual) Seg Neutrophils # Lymphocytes # (Manual) Eosinophils # (Manual) PT INR D-Dimer POC ABG pH POC ABG pCO2 POC ABG pO2 ABG pO2 ABG HCO3 ABG Base Excess ABG Hemoglobin Oxyhemoglobin Sodium Potassium Chloride Carbon Dioxide BUN Creatinine Glucose POC Glucose 108 H 128 H 144 H Calcium Phosphorus ALT Alkaline Phosphatase Total Creatine Kinase CK-MB (CK-2) Rel Index Troponin T Albumin LDL Cholesterol Direct PTH Intact Salicylates Acetaminophen Crossmatch 03/10/19 03/11/19 03/11/19 16:50 00:24 05:02 WBC RBC Hgb Hct MCH MCHC RDW Lymph % (Auto) [place] % (Auto) Eos % (Auto) Lymph # [place] # Eos # Seg Neutrophils % Seg Neuts % (Manual) Lymphocytes % (Manual) Eosinophils % (Manual) Seg Neutrophils # Lymphocytes # (Manual) Eosinophils # (Manual) PT INR D-Dimer POC ABG pH POC ABG pCO2 POC ABG pO2 ABG pO2 ABG HCO3 ABG Base Excess ABG Hemoglobin Oxyhemoglobin Sodium Potassium Chloride Carbon Dioxide BUN Creatinine Glucose POC Glucose 147 H 123 H 120 H Calcium Phosphorus ALT Alkaline Phosphatase Total Creatine Kinase CK-MB (CK-2) Rel Index Troponin T Albumin LDL Cholesterol Direct PTH Intact Salicylates Acetaminophen Crossmatch 03/11/19 03/11/19 03/11/19 11:56 12:20 18:37 WBC RBC Hgb Hct MCH MCHC RDW Lymph % (Auto) [place] % (Auto) Eos % (Auto) Lymph # [place] # Eos # Seg Neutrophils % Seg Neuts % (Manual) Lymphocytes % (Manual) Eosinophils % (Manual) Seg Neutrophils # Lymphocytes # (Manual) Eosinophils # (Manual) PT INR D-Dimer POC ABG pH POC ABG pCO2 POC ABG pO2 ABG pO2 ABG HCO3 ABG Base Excess ABG Hemoglobin Oxyhemoglobin Sodium Potassium 5.2 H Chloride Carbon Dioxide BUN Creatinine Glucose POC Glucose 123 H 125 H Calcium Phosphorus ALT Alkaline Phosphatase Total Creatine Kinase CK-MB (CK-2) Rel Index Troponin T Albumin LDL Cholesterol Direct PTH Intact Salicylates Acetaminophen Crossmatch 03/11/19 03/12/19 03/12/19 22:52 12:04 18:25 WBC RBC Hgb Hct MCH MCHC RDW Lymph % (Auto) [place] % (Auto) Eos % (Auto) Lymph # [place] # Eos # Seg Neutrophils % Seg Neuts % (Manual) Lymphocytes % (Manual) Eosinophils % (Manual) Seg Neutrophils # Lymphocytes # (Manual) Eosinophils # (Manual) PT INR D-Dimer POC ABG pH POC ABG pCO2 POC ABG pO2 ABG pO2 ABG HCO3 ABG Base Excess ABG Hemoglobin Oxyhemoglobin Sodium Potassium Chloride Carbon Dioxide BUN Creatinine Glucose POC Glucose 110 H 106 H 118 H Calcium Phosphorus ALT Alkaline Phosphatase Total Creatine Kinase CK-MB (CK-2) Rel Index Troponin T Albumin LDL Cholesterol Direct PTH Intact Salicylates Acetaminophen Crossmatch 03/12/19 03/13/19 03/13/19 23:36 04:38 04:38 WBC RBC 2.95 L Hgb 7.9 L Hct 24.9 L MCH 27 L MCHC RDW 19.9 H Lymph % (Auto) 11.1 L [place] % (Auto) 8.1 H Eos % (Auto) 4.4 H Lymph # 0.9 L [place] # Eos # Seg Neutrophils % 75.4 H Seg Neuts % (Manual) Lymphocytes % (Manual) Eosinophils % (Manual) Seg Neutrophils # Lymphocytes # (Manual) Eosinophils # (Manual) PT INR D-Dimer POC ABG pH POC ABG pCO2 POC ABG pO2 ABG pO2 ABG HCO3 ABG Base Excess ABG Hemoglobin Oxyhemoglobin Sodium 136 L Potassium 5.1 H Chloride 93.8 L Carbon Dioxide BUN 48 H Creatinine 2.7 H Glucose 102 H POC Glucose 115 H Calcium Phosphorus ALT < 5 L Alkaline Phosphatase 143 H Total Creatine Kinase CK-MB (CK-2) Rel Index Troponin T Albumin 2.5 L LDL Cholesterol Direct PTH Intact Salicylates Acetaminophen Crossmatch 03/13/19 03/13/19 03/13/19 05:33 13:37 18:03 WBC RBC Hgb Hct MCH MCHC RDW Lymph % (Auto) [place] % (Auto) Eos % (Auto) Lymph # [place] # Eos # Seg Neutrophils % Seg Neuts % (Manual) Lymphocytes % (Manual) Eosinophils % (Manual) Seg Neutrophils # Lymphocytes # (Manual) Eosinophils # (Manual) PT INR D-Dimer POC ABG pH POC ABG pCO2 POC ABG pO2 ABG pO2 ABG HCO3 ABG Base Excess ABG Hemoglobin Oxyhemoglobin Sodium Potassium Chloride Carbon Dioxide BUN Creatinine Glucose POC Glucose 140 H 150 H 158 H Calcium Phosphorus ALT Alkaline Phosphatase Total Creatine Kinase CK-MB (CK-2) Rel Index Troponin T Albumin LDL Cholesterol Direct PTH Intact Salicylates Acetaminophen Crossmatch 03/13/19 03/14/19 03/14/19 23:32 05:24 12:20 WBC RBC Hgb Hct MCH MCHC RDW Lymph % (Auto) [place] % (Auto) Eos % (Auto) Lymph # [place] # Eos # Seg Neutrophils % Seg Neuts % (Manual) Lymphocytes % (Manual) Eosinophils % (Manual) Seg Neutrophils # Lymphocytes # (Manual) Eosinophils # (Manual) PT INR D-Dimer POC ABG pH POC ABG pCO2 POC ABG pO2 ABG pO2 ABG HCO3 ABG Base Excess ABG Hemoglobin Oxyhemoglobin Sodium Potassium Chloride Carbon Dioxide BUN Creatinine Glucose POC Glucose 162 H 146 H 127 H Calcium Phosphorus ALT Alkaline Phosphatase Total Creatine Kinase CK-MB (CK-2) Rel Index Troponin T Albumin LDL Cholesterol Direct PTH Intact Salicylates Acetaminophen Crossmatch 03/14/19 03/14/19 03/15/19 18:05 23:57 04:38 WBC 12.8 H RBC 3.11 L Hgb 8.1 L Hct 26.5 L MCH 26 L MCHC 31 L RDW 19.7 H Lymph % (Auto) 4.4 L [place] % (Auto) 7.4 H Eos % (Auto) Lymph # 0.6 L [place] # 0.9 H Eos # Seg Neutrophils % 87.3 H Seg Neuts % (Manual) Lymphocytes % (Manual) Eosinophils % (Manual) Seg Neutrophils # 11.2 H Lymphocytes # (Manual) Eosinophils # (Manual) PT INR D-Dimer POC ABG pH POC ABG pCO2 POC ABG pO2 ABG pO2 ABG HCO3 ABG Base Excess ABG Hemoglobin Oxyhemoglobin Sodium Potassium Chloride Carbon Dioxide BUN Creatinine Glucose POC Glucose 142 H 155 H Calcium Phosphorus ALT Alkaline Phosphatase Total Creatine Kinase CK-MB (CK-2) Rel Index Troponin T Albumin LDL Cholesterol Direct PTH Intact Salicylates Acetaminophen Crossmatch 03/15/19 03/15/19 03/15/19 04:38 05:31 11:32 WBC RBC Hgb Hct MCH MCHC RDW Lymph % (Auto) [place] % (Auto) Eos % (Auto) Lymph # [place] # Eos # Seg Neutrophils % Seg Neuts % (Manual) Lymphocytes % (Manual) Eosinophils % (Manual) Seg Neutrophils # Lymphocytes # (Manual) Eosinophils # (Manual) PT INR D-Dimer POC ABG pH POC ABG pCO2 POC ABG pO2 ABG pO2 ABG HCO3 ABG Base Excess ABG Hemoglobin Oxyhemoglobin Sodium 135 L Potassium Chloride 91.9 L Carbon Dioxide BUN 54 H Creatinine 2.8 H Glucose 128 H POC Glucose 160 H 109 H Calcium 11.1 H Phosphorus ALT Alkaline Phosphatase 161 H Total Creatine Kinase CK-MB (CK-2) Rel Index Troponin T Albumin 2.3 L LDL Cholesterol Direct PTH Intact Salicylates Acetaminophen Crossmatch 03/15/19 03/15/19 03/16/19 18:15 23:41 05:40 WBC RBC Hgb Hct MCH MCHC RDW Lymph % (Auto) [place] % (Auto) Eos % (Auto) Lymph # [place] # Eos # Seg Neutrophils % Seg Neuts % (Manual) Lymphocytes % (Manual) Eosinophils % (Manual) Seg Neutrophils # Lymphocytes # (Manual) Eosinophils # (Manual) PT INR D-Dimer POC ABG pH POC ABG pCO2 POC ABG pO2 ABG pO2 ABG HCO3 ABG Base Excess ABG Hemoglobin Oxyhemoglobin Sodium Potassium Chloride Carbon Dioxide BUN Creatinine Glucose POC Glucose 151 H 110 H 163 H Calcium Phosphorus ALT Alkaline Phosphatase Total Creatine Kinase CK-MB (CK-2) Rel Index Troponin T Albumin LDL Cholesterol Direct PTH Intact Salicylates Acetaminophen Crossmatch 03/16/19 03/16/19 03/16/19 11:55 17:04 23:58 WBC RBC Hgb Hct MCH MCHC RDW Lymph % (Auto) [place] % (Auto) Eos % (Auto) Lymph # [place] # Eos # Seg Neutrophils % Seg Neuts % (Manual) Lymphocytes % (Manual) Eosinophils % (Manual) Seg Neutrophils # Lymphocytes # (Manual) Eosinophils # (Manual) PT INR D-Dimer POC ABG pH POC ABG pCO2 POC ABG pO2 ABG pO2 ABG HCO3 ABG Base Excess ABG Hemoglobin Oxyhemoglobin Sodium Potassium Chloride Carbon Dioxide BUN Creatinine Glucose POC Glucose 114 H 147 H 192 H Calcium Phosphorus ALT Alkaline Phosphatase Total Creatine Kinase CK-MB (CK-2) Rel Index Troponin T Albumin LDL Cholesterol Direct PTH Intact Salicylates Acetaminophen Crossmatch 03/17/19 03/17/19 03/17/19 05:53 11:17 17:01 WBC RBC Hgb Hct MCH MCHC RDW Lymph % (Auto) [place] % (Auto) Eos % (Auto) Lymph # [place] # Eos # Seg Neutrophils % Seg Neuts % (Manual) Lymphocytes % (Manual) Eosinophils % (Manual) Seg Neutrophils # Lymphocytes # (Manual) Eosinophils # (Manual) PT INR D-Dimer POC ABG pH POC ABG pCO2 POC ABG pO2 ABG pO2 ABG HCO3 ABG Base Excess ABG Hemoglobin Oxyhemoglobin Sodium Potassium Chloride Carbon Dioxide BUN Creatinine Glucose POC Glucose 151 H 161 H 152 H Calcium Phosphorus ALT Alkaline Phosphatase Total Creatine Kinase CK-MB (CK-2) Rel Index Troponin T Albumin LDL Cholesterol Direct PTH Intact Salicylates Acetaminophen Crossmatch 03/17/19 03/18/19 03/18/19 21:47 04:15 04:44 WBC RBC Hgb Hct MCH MCHC RDW Lymph % (Auto) [place] % (Auto) Eos % (Auto) Lymph # [place] # Eos # Seg Neutrophils % Seg Neuts % (Manual) Lymphocytes % (Manual) Eosinophils % (Manual) Seg Neutrophils # Lymphocytes # (Manual) Eosinophils # (Manual) PT INR D-Dimer POC ABG pH POC ABG pCO2 POC ABG pO2 ABG pO2 102.8 H ABG HCO3 28.3 H ABG Base Excess ABG Hemoglobin 10.4 L Oxyhemoglobin 94.5 L Sodium Potassium Chloride Carbon Dioxide BUN Creatinine Glucose POC Glucose 170 H 150 H Calcium Phosphorus ALT Alkaline Phosphatase Total Creatine Kinase CK-MB (CK-2) Rel Index Troponin T Albumin LDL Cholesterol Direct PTH Intact Salicylates Acetaminophen Crossmatch 03/18/19 03/18/19 03/18/19 06:38 12:12 17:47 WBC RBC Hgb Hct MCH MCHC RDW Lymph % (Auto) [place] % (Auto) Eos % (Auto) Lymph # [place] # Eos # Seg Neutrophils % Seg Neuts % (Manual) Lymphocytes % (Manual) Eosinophils % (Manual) Seg Neutrophils # Lymphocytes # (Manual) Eosinophils # (Manual) PT INR D-Dimer POC ABG pH 7.510 H POC ABG pCO2 POC ABG pO2 164 H ABG pO2 ABG HCO3 ABG Base Excess ABG Hemoglobin Oxyhemoglobin Sodium Potassium Chloride Carbon Dioxide BUN Creatinine Glucose POC Glucose 145 H 149 H Calcium Phosphorus ALT Alkaline Phosphatase Total Creatine Kinase CK-MB (CK-2) Rel Index Troponin T Albumin LDL Cholesterol Direct PTH Intact Salicylates Acetaminophen Crossmatch 03/18/19 03/19/19 03/19/19 23:25 01:11 04:23 WBC 15.6 H RBC 2.51 L Hgb 6.5 L Hct 21.6 L MCH 26 L MCHC 30 L RDW 19.8 H Lymph % (Auto) 6.0 L [place] % (Auto) Eos % (Auto) Lymph # 0.9 L [place] # 1.0 H Eos # Seg Neutrophils % 85.5 H Seg Neuts % (Manual) Lymphocytes % (Manual) Eosinophils % (Manual) Seg Neutrophils # 13.4 H Lymphocytes # (Manual) Eosinophils # (Manual) PT INR D-Dimer POC ABG pH POC ABG pCO2 POC ABG pO2 ABG pO2 78.3 L ABG HCO3 30.7 H ABG Base Excess 5.8 H ABG Hemoglobin 5.8 L Oxyhemoglobin 94.6 L Sodium Potassium Chloride Carbon Dioxide BUN Creatinine Glucose POC Glucose 190 H Calcium Phosphorus ALT Alkaline Phosphatase Total Creatine Kinase CK-MB (CK-2) Rel Index Troponin T Albumin LDL Cholesterol Direct PTH Intact Salicylates Acetaminophen Crossmatch 03/19/19 03/19/19 03/19/19 05:22 05:35 08:54 WBC RBC Hgb Hct MCH MCHC RDW Lymph % (Auto) [place] % (Auto) Eos % (Auto) Lymph # [place] # Eos # Seg Neutrophils % Seg Neuts % (Manual) Lymphocytes % (Manual) Eosinophils % (Manual) Seg Neutrophils # Lymphocytes # (Manual) Eosinophils # (Manual) PT INR D-Dimer POC ABG pH POC ABG pCO2 POC ABG pO2 ABG pO2 ABG HCO3 ABG Base Excess ABG Hemoglobin Oxyhemoglobin Sodium Potassium Chloride Carbon Dioxide BUN Creatinine Glucose POC Glucose 167 H Calcium Phosphorus ALT Alkaline Phosphatase Total Creatine Kinase CK-MB (CK-2) Rel Index Troponin T Albumin LDL Cholesterol Direct PTH Intact Salicylates Acetaminophen Crossmatch See Detail See Detail 03/19/19 03/19/19 03/19/19 12:36 17:02 23:25 WBC RBC Hgb Hct MCH MCHC RDW Lymph % (Auto) [place] % (Auto) Eos % (Auto) Lymph # [place] # Eos # Seg Neutrophils % Seg Neuts % (Manual) Lymphocytes % (Manual) Eosinophils % (Manual) Seg Neutrophils # Lymphocytes # (Manual) Eosinophils # (Manual) PT INR D-Dimer POC ABG pH POC ABG pCO2 POC ABG pO2 ABG pO2 ABG HCO3 ABG Base Excess ABG Hemoglobin Oxyhemoglobin Sodium Potassium Chloride Carbon Dioxide BUN Creatinine Glucose POC Glucose 167 H 135 H 136 H Calcium Phosphorus ALT Alkaline Phosphatase Total Creatine Kinase CK-MB (CK-2) Rel Index Troponin T Albumin LDL Cholesterol Direct PTH Intact Salicylates Acetaminophen Crossmatch 03/20/19 03/20/19 03/20/19 05:38 08:40 08:40 WBC RBC 2.61 L Hgb 7.1 L Hct 22.0 L MCH 27 L MCHC RDW 19.6 H Lymph % (Auto) 8.2 L [place] % (Auto) 8.3 H Eos % (Auto) 5.7 H Lymph # 0.8 L [place] # Eos # 0.5 H Seg Neutrophils % 77.3 H Seg Neuts % (Manual) Lymphocytes % (Manual) Eosinophils % (Manual) Seg Neutrophils # Lymphocytes # (Manual) Eosinophils # (Manual) PT INR D-Dimer POC ABG pH POC ABG pCO2 POC ABG pO2 ABG pO2 ABG HCO3 ABG Base Excess ABG Hemoglobin Oxyhemoglobin Sodium Potassium Chloride 95.9 L Carbon Dioxide BUN 69 H Creatinine 2.8 H Glucose 115 H POC Glucose 134 H Calcium 10.5 H Phosphorus ALT Alkaline Phosphatase Total Creatine Kinase CK-MB (CK-2) Rel Index Troponin T Albumin LDL Cholesterol Direct PTH Intact Salicylates Acetaminophen Crossmatch 03/20/19 03/20/19 03/20/19 12:13 18:04 23:49 WBC RBC Hgb Hct MCH MCHC RDW Lymph % (Auto) [place] % (Auto) Eos % (Auto) Lymph # [place] # Eos # Seg Neutrophils % Seg Neuts % (Manual) Lymphocytes % (Manual) Eosinophils % (Manual) Seg Neutrophils # Lymphocytes # (Manual) Eosinophils # (Manual) PT INR D-Dimer POC ABG pH POC ABG pCO2 POC ABG pO2 ABG pO2 ABG HCO3 ABG Base Excess ABG Hemoglobin Oxyhemoglobin Sodium Potassium Chloride Carbon Dioxide BUN Creatinine Glucose POC Glucose 144 H 165 H 172 H Calcium Phosphorus ALT Alkaline Phosphatase Total Creatine Kinase CK-MB (CK-2) Rel Index Troponin T Albumin LDL Cholesterol Direct PTH Intact Salicylates Acetaminophen Crossmatch 03/21/19 03/21/19 03/21/19 05:00 06:29 06:30 WBC RBC 2.72 L Hgb 7.4 L Hct 22.9 L MCH 27 L MCHC RDW 19.4 H Lymph % (Auto) [place] % (Auto) Eos % (Auto) Lymph # [place] # Eos # Seg Neutrophils % Seg Neuts % (Manual) 81.0 H Lymphocytes % (Manual) 8.0 L Eosinophils % (Manual) 8.0 H Seg Neutrophils # Lymphocytes # (Manual) 0.7 L Eosinophils # (Manual) 0.7 H PT INR D-Dimer POC ABG pH POC ABG pCO2 POC ABG pO2 ABG pO2 ABG HCO3 ABG Base Excess ABG Hemoglobin Oxyhemoglobin Sodium Potassium Chloride Carbon Dioxide 33 H BUN 43 H Creatinine 1.7 H Glucose 145 H POC Glucose 156 H Calcium Phosphorus ALT Alkaline Phosphatase 212 H Total Creatine Kinase CK-MB (CK-2) Rel Index Troponin T Albumin 2.2 L LDL Cholesterol Direct PTH Intact Salicylates Acetaminophen Crossmatch 03/21/19 03/21/19 03/22/19 12:02 18:07 00:21 WBC RBC Hgb Hct MCH MCHC RDW Lymph % (Auto) [place] % (Auto) Eos % (Auto) Lymph # [place] # Eos # Seg Neutrophils % Seg Neuts % (Manual) Lymphocytes % (Manual) Eosinophils % (Manual) Seg Neutrophils # Lymphocytes # (Manual) Eosinophils # (Manual) PT INR D-Dimer POC ABG pH POC ABG pCO2 POC ABG pO2 ABG pO2 ABG HCO3 ABG Base Excess ABG Hemoglobin Oxyhemoglobin Sodium Potassium Chloride Carbon Dioxide BUN Creatinine Glucose POC Glucose 163 H 144 H 153 H Calcium Phosphorus ALT Alkaline Phosphatase Total Creatine Kinase CK-MB (CK-2) Rel Index Troponin T Albumin LDL Cholesterol Direct PTH Intact Salicylates Acetaminophen Crossmatch 03/22/19 03/22/19 03/22/19 05:23 05:23 05:31 WBC RBC 2.58 L Hgb 7.1 L Hct 21.8 L MCH 27 L MCHC RDW 19.2 H Lymph % (Auto) [place] % (Auto) Eos % (Auto) Lymph # [place] # Eos # Seg Neutrophils % Seg Neuts % (Manual) Lymphocytes % (Manual) Eosinophils % (Manual) Seg Neutrophils # Lymphocytes # (Manual) Eosinophils # (Manual) PT INR D-Dimer POC ABG pH POC ABG pCO2 POC ABG pO2 ABG pO2 ABG HCO3 ABG Base Excess ABG Hemoglobin Oxyhemoglobin Sodium 147 H Potassium Chloride Carbon Dioxide BUN 68 H Creatinine 2.5 H Glucose POC Glucose 116 H Calcium 10.3 H Phosphorus ALT Alkaline Phosphatase Total Creatine Kinase CK-MB (CK-2) Rel Index Troponin T Albumin LDL Cholesterol Direct PTH Intact Salicylates Acetaminophen Crossmatch 03/22/19 03/22/19 03/22/19 08:48 12:37 17:35 WBC RBC Hgb Hct MCH MCHC RDW Lymph % (Auto) [place] % (Auto) Eos % (Auto) Lymph # [place] # Eos # Seg Neutrophils % Seg Neuts % (Manual) Lymphocytes % (Manual) Eosinophils % (Manual) Seg Neutrophils # Lymphocytes # (Manual) Eosinophils # (Manual) PT INR D-Dimer POC ABG pH POC ABG pCO2 POC ABG pO2 ABG pO2 ABG HCO3 ABG Base Excess ABG Hemoglobin Oxyhemoglobin Sodium Potassium Chloride Carbon Dioxide BUN Creatinine Glucose POC Glucose 143 H 155 H Calcium Phosphorus ALT Alkaline Phosphatase Total Creatine Kinase CK-MB (CK-2) Rel Index Troponin T Albumin LDL Cholesterol Direct PTH Intact Salicylates Acetaminophen Crossmatch See Detail 03/23/19 03/23/19 03/23/19 00:07 04:00 04:00 WBC 11.2 H RBC 2.32 L Hgb 6.4 L Hct 19.7 L* MCH MCHC RDW 19.4 H Lymph % (Auto) [place] % (Auto) Eos % (Auto) Lymph # [place] # Eos # Seg Neutrophils % Seg Neuts % (Manual) Lymphocytes % (Manual) Eosinophils % (Manual) Seg Neutrophils # Lymphocytes # (Manual) Eosinophils # (Manual) PT INR D-Dimer POC ABG pH POC ABG pCO2 POC ABG pO2 ABG pO2 ABG HCO3 ABG Base Excess ABG Hemoglobin Oxyhemoglobin Sodium 147 H Potassium 5.2 H Chloride Carbon Dioxide BUN 86 H Creatinine 3.2 H Glucose 128 H POC Glucose 135 H Calcium 10.3 H Phosphorus ALT Alkaline Phosphatase Total Creatine Kinase CK-MB (CK-2) Rel Index Troponin T Albumin LDL Cholesterol Direct PTH Intact Salicylates Acetaminophen Crossmatch 03/23/19 03/23/19 03/23/19 05:21 11:36 11:36 WBC RBC Hgb 7.9 L Hct 25.0 L MCH MCHC RDW Lymph % (Auto) [place] % (Auto) Eos % (Auto) Lymph # [place] # Eos # Seg Neutrophils % Seg Neuts % (Manual) Lymphocytes % (Manual) Eosinophils % (Manual) Seg Neutrophils # Lymphocytes # (Manual) Eosinophils # (Manual) PT INR D-Dimer POC ABG pH POC ABG pCO2 POC ABG pO2 ABG pO2 ABG HCO3 ABG Base Excess ABG Hemoglobin Oxyhemoglobin Sodium Potassium Chloride Carbon Dioxide BUN Creatinine Glucose POC Glucose 132 H 147 H Calcium Phosphorus ALT Alkaline Phosphatase Total Creatine Kinase CK-MB (CK-2) Rel Index Troponin T Albumin LDL Cholesterol Direct PTH Intact Salicylates Acetaminophen Crossmatch 03/23/19 03/24/19 03/24/19 17:31 01:22 04:20 WBC 12.2 H RBC 3.05 L Hgb 8.3 L Hct 25.9 L MCH 27 L MCHC RDW 18.7 H Lymph % (Auto) [place] % (Auto) Eos % (Auto) Lymph # [place] # Eos # Seg Neutrophils % Seg Neuts % (Manual) Lymphocytes % (Manual) Eosinophils % (Manual) Seg Neutrophils # Lymphocytes # (Manual) Eosinophils # (Manual) PT INR D-Dimer POC ABG pH POC ABG pCO2 POC ABG pO2 ABG pO2 ABG HCO3 ABG Base Excess ABG Hemoglobin Oxyhemoglobin Sodium Potassium Chloride Carbon Dioxide BUN Creatinine Glucose POC Glucose 182 H 113 H Calcium Phosphorus ALT Alkaline Phosphatase Total Creatine Kinase CK-MB (CK-2) Rel Index Troponin T Albumin LDL Cholesterol Direct PTH Intact Salicylates Acetaminophen Crossmatch 03/24/19 03/24/19 03/24/19 04:20 11:59 18:14 WBC RBC Hgb Hct MCH MCHC RDW Lymph % (Auto) [place] % (Auto) Eos % (Auto) Lymph # [place] # Eos # Seg Neutrophils % Seg Neuts % (Manual) Lymphocytes % (Manual) Eosinophils % (Manual) Seg Neutrophils # Lymphocytes # (Manual) Eosinophils # (Manual) PT INR D-Dimer POC ABG pH POC ABG pCO2 POC ABG pO2 ABG pO2 ABG HCO3 ABG Base Excess ABG Hemoglobin Oxyhemoglobin Sodium Potassium Chloride 94.8 L Carbon Dioxide 32 H BUN 53 H Creatinine 2.3 H Glucose POC Glucose 163 H 134 H Calcium Phosphorus ALT Alkaline Phosphatase Total Creatine Kinase CK-MB (CK-2) Rel Index Troponin T Albumin LDL Cholesterol Direct PTH Intact Salicylates Acetaminophen Crossmatch 03/24/19 03/25/19 23:15 05:52 WBC RBC Hgb Hct MCH MCHC RDW Lymph % (Auto) [place] % (Auto) Eos % (Auto) Lymph # [place] # Eos # Seg Neutrophils % Seg Neuts % (Manual) Lymphocytes % (Manual) Eosinophils % (Manual) Seg Neutrophils # Lymphocytes # (Manual) Eosinophils # (Manual) PT INR D-Dimer POC ABG pH POC ABG pCO2 POC ABG pO2 ABG pO2 ABG HCO3 ABG Base Excess ABG Hemoglobin Oxyhemoglobin Sodium Potassium Chloride Carbon Dioxide BUN Creatinine Glucose POC Glucose 129 H 123 H Calcium Phosphorus ALT Alkaline Phosphatase Total Creatine Kinase CK-MB (CK-2) Rel Index Troponin T Albumin LDL Cholesterol Direct PTH Intact Salicylates Acetaminophen Crossmatch Chest x-ray: report reviewed, image reviewed (bilateral infiltrates; KEON density is fading)
--- NOTE | 2019-03-25 14:39 | Progress Note ---
Assessment and Plan Assessment and plan: Acute respiratory failure on mechanical ventilator >96 hrs Extubated ; history of tracheostomy on T piece Current management , nebulizers, Currently on trach/peg placed on 03/03. Now off vent, cont oxygen supplement, improving, on t piece, nebulizers, pulmonary critical following acute on chronic systolic CHF/ Acute pulmonary edema, HD per schedule Dilated CMP, EF 35-40% Continue diuresis, supportive care Acute metabolic encephalopathy, resolved, has baseline Dementia. --ESRD on hemodialysis per schedule nephrology following --Bilateral pleural effusions improved with HD --Permanent atrial fibrillation and flutter and hypercoaguable state Not on anticoagulation because of anemia thrombocytopenia rate control meds optimized --Diabetes mellitus type 2 Accu-Chek sliding scale coverage Insulin as needed --NSTEMI type 2 , Cardiology following --Schizophrenia:stable --Legally blind, supportive care --hypertension, Monitor BP,'s adjust medications as needed --Hypokalemia; corrected --Pulmonary hypertension; continue current management --Dysphagia s/p PEG tube; PEG tubes per protocol --Sacral decub ulcer; Wound care --Severe malnutrition /hypoalbuminemia with FTT: 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, job counselor following PEG placed on 01/02/19 --Multiple decubiti, different stages , s/ p colostomy Left 5th finger, stage 4 pressure ulcer Left heel, deep tissue injury Sacrum, stage 4 pressure ulcer POA Continue wound care --History of sacral osteomyelitis and LE ulcers Completed Antibiotics, contact isolation for ESBL Klebsiella pneumonia on wound culture 01/02/19 --Anemia of chronic disease s/p 1 unit of prbc , stable --RUL atelectasis, probably mucous plugging --DVT prophylaxis; Lovenox --Full code status --Very poor prognosis Dispo; Awaiting SNF placement , difficult to place ,unable to find any NH to take patient. inpatient hospice was recommended, but family is not agreeable at this time. family meeting and ethic consult as needed The high probability of a clinically significant, sudden or life threatening deterioration of the [pulmonary, neuro, renal] system(s) required my full and direct attention, intervention and personal management. The aggregate critical care time was [31] minutes. This time is in addition to time spent performing reported procedures but includes the following: [x] Data Review and interpretation [x] Patient assessment and monitoring of vital signs [x] Documentation [x] Medication orders and management History Interval history: Patient is 63-year-old -[place] male patient from [facility] with multiple co-morbidities including blindness, CVA, CHF, PPM/ICD, loop recorder since 2012 that is MRI compatible, IDDM type 2, sepsis left foot ulcer, afib, ESRD with complications on HD TTS, hypertension, AOCD and GERD who presented to the ED with hypotensive after intubation in the emergency room. diagnosed with fluid overload, pleural effusion. Patient has had recurrent admission in the hospital for similar reason and was recently discharged from the hospital following treatment of Severe Sepsis due to Necrotizing Unstagable sacral decubitus ulcer with ostemomylitis, has received multiple courses of broad spectrum abx. Acute hypoxic respiratory failure, status post intubation and ventilatory support, now off vent, on T-piece Hospitalist Physical - Constitutional Vitals: Temp Pulse Resp BP Pulse Ox 97.5 F L 117 H 25 H 120/67 97 03/25/19 12:00 03/25/19 13:00 03/25/19 13:00 03/25/19 13:00 03/25/19 13:00 General appearance: Present: no acute distress, well-nourished, other (tracheostomy on T piece) - EENT Eyes: Present: PERRL, EOM intact ENT: hearing intact, clear oral mucosa, dentition normal - Neck Neck: Present: supple, normal ROM - Respiratory Respiratory effort: normal Respiratory: bilateral: CTA - Cardiovascular Rhythm: regular Heart Sounds: Present: S1 & S2. Absent: gallop, rub - Extremities Extremities: no ischemia, No edema, Full ROM - Abdominal General gastrointestinal: soft, non-tender, non-distended, normal bowel sounds - Integumentary Integumentary: Present: clear, warm, dry - Neurologic Neurologic: CNII-XII intact, moves all extremities Results - Labs CBC & Chem 7: 03/24/19 04:20 03/24/19 04:20 Labs: Laboratory Last Values WBC 12.2 K/mm3 (4.5-11.0) H 03/24/19 04:20 RBC 3.05 M/mm3 (3.65-5.03) L 03/24/19 04:20 Hgb 8.3 gm/dl (11.8-15.2) L 03/24/19 04:20 Hct 25.9 % (35.5-45.6) L 03/24/19 04:20 MCV 85 fl (84-94) 03/24/19 04:20 MCH 27 pg (28-32) L 03/24/19 04:20 MCHC 32 % (32-34) 03/24/19 04:20 RDW 18.7 % (13.2-15.2) H 03/24/19 04:20 Plt Count 330 K/mm3 (140-440) 03/24/19 04:20 Lymph % (Auto) 8.2 % (13.4-35.0) L 03/20/19 08:40 [place] % (Auto) 8.3 % (0.0-7.3) H 03/20/19 08:40 Eos % (Auto) 5.7 % (0.0-4.3) H 03/20/19 08:40 Baso % (Auto) 0.5 % (0.0-1.8) 03/20/19 08:40 Lymph # 0.8 K/mm3 (1.2-5.4) L 03/20/19 08:40 [place]ble # 0.8 K/mm3 (0.0-0.8) 03/20/19 08:40 Eos # 0.5 K/mm3 (0.0-0.4) H 03/20/19 08:40 Baso # 0.0 K/mm3 (0.0-0.1) 03/20/19 08:40 Add Manual Diff Complete 03/21/19 06:30 Total Counted 100 03/21/19 06:30 Seg Neutrophils % 77.3 % (40.0-70.0) H 03/20/19 08:40 Seg Neuts % (Manual) 81.0 % (40.0-70.0) H 03/21/19 06:30 0 % 03/21/19 06:30 8.0 % (13.4-35.0) L 03/21/19 06:30 Reactive Lymphs % (Man) 0 % 03/21/19 06:30 1.0 % (0.0-7.3) 03/21/19 06:30 8.0 % (0.0-4.3) H 03/21/19 06:30 1.0 % (0.0-1.8) 03/21/19 06:30 1.0 % 03/21/19 06:30 0 % 03/21/19 06:30 0 % 03/21/19 06:30 0 % 03/21/19 06:30 Nucleated RBC % Not Reportable 03/21/19 06:30 Seg Neutrophils # 7.3 K/mm3 (1.8-7.7) 03/20/19 08:40 Seg Neutrophils # Man 6.7 K/mm3 (1.8-7.7) 03/21/19 06:30 Band Neutrophils # 0.0 K/mm3 03/21/19 06:30 0.7 K/mm3 (1.2-5.4) L 03/21/19 06:30 Abs React Lymphs (Man) 0.0 K/mm3 03/21/19 06:30 0.1 K/mm3 (0.0-0.8) 03/21/19 06:30 0.7 K/mm3 (0.0-0.4) H 03/21/19 06:30 0.1 K/mm3 (0.0-0.1) 03/21/19 06:30 0.1 K/mm3 03/21/19 06:30 0.0 K/mm3 03/21/19 06:30 0.0 K/mm3 03/21/19 06:30 Blast Cells # 0.0 K/mm3 03/21/19 06:30 WBC Morphology Not Reportable 03/21/19 06:30 Hypersegmented Neuts Not Reportable 03/21/19 06:30 Hyposegmented Neuts Not Reportable 03/21/19 06:30 Hypogranular Neuts Not Reportable 03/21/19 06:30 Not Reportable 03/21/19 06:30 Not Reportable 03/21/19 06:30 Not Reportable 03/21/19 06:30 Not Reportable 03/21/19 06:30 Not Reportable 03/21/19 06:30 Not Reportable 03/21/19 06:30 Consistent w auto 03/21/19 06:30 Not Reportable 03/21/19 06:30 Plt Clumps, EDTA Not Reportable 03/21/19 06:30 Not Reportable 03/21/19 06:30 Not Reportable 03/21/19 06:30 Not Reportable 03/21/19 06:30 Plt Morphology Comment Not Reportable 03/21/19 06:30 RBC Morphology Not Reportable 03/21/19 06:30 Dimorphic RBCs Not Reportable 03/21/19 06:30 Not Reportable 03/21/19 06:30 Few 03/21/19 06:30 Few 03/21/19 06:30 Few 03/21/19 06:30 Not Reportable 03/21/19 06:30 Not Reportable 03/21/19 06:30 Not Reportable 03/21/19 06:30 Not Reportable 03/21/19 06:30 Not Reportable 03/21/19 06:30 1+ 03/21/19 06:30 Not Reportable 03/21/19 06:30 Few 03/21/19 06:30 Not Reportable 03/21/19 06:30 Not Reportable 03/21/19 06:30 Not Reportable 03/21/19 06:30 Not Reportable 03/21/19 06:30 Not Reportable 03/21/19 06:30 Not Reportable 03/21/19 06:30 Not Reportable 03/21/19 06:30 Acanthocytes (Spur) Not Reportable 03/21/19 06:30 Rouleaux Not Reportable 03/21/19 06:30 Not Reportable 03/21/19 06:30 Not Reportable 03/21/19 06:30 Not Reportable 03/21/19 06:30 Not Reportable 03/21/19 06:30 Hem Pathologist Commnt No 03/21/19 06:30 PT 16.3 Sec. (12.2-14.9) H 03/01/19 09:39 INR 1.35 (0.87-1.13) H 03/01/19 09:39 APTT 33.7 Sec. (24.2-36.6) 02/21/19 18:30 2987.82 ng/mlDDU (0-234) H 02/22/19 05:54 POC ABG pH 7.510 (7.35-7.45) H 03/18/19 06:38 ABG pH 7.424 pH Units (7.350-7.450) 03/19/19 04:23 POC ABG pCO2 38.9 (35-45) 03/18/19 06:38 ABG pCO2 48.0 mm Hg 03/19/19 04:23 POC ABG pO2 164 (80-105) H 03/18/19 06:38 ABG pO2 78.3 mm Hg (80.0-90.0) L 03/19/19 04:23 POC ABG HCO3 31.0 (22-26 mml/L) 03/18/19 06:38 ABG HCO3 30.7 mmol/L (20.0-26.0) H 03/19/19 04:23 POC ABG Total CO2 32 (23-27mmol/L) 03/18/19 06:38 POC ABG O2 Sat 100 03/18/19 06:38 ABG O2 Saturation 97.0 % (95.0-99.0) 03/19/19 04:23 ABG O2 Content 7.9 (0.0-44) 03/19/19 04:23 POC ABG Base Excess 8 ((-2) - (+3)mmol/L) 03/18/19 06:38 ABG Base Excess 5.8 mmol/L (-2.0-3.0) H 03/19/19 04:23 ABG Hemoglobin 5.8 gm/dl (14.0-18.0) L 03/19/19 04:23 ABG Carboxyhemoglobin 2.0 % (0.0-5.0) 03/19/19 04:23 ABG Methemoglobin 0.4 % (0.0-1.5) 03/19/19 04:23 94.6 % (95.0-99.0) L 03/19/19 04:23 35 % 03/19/19 04:23 Sodium 139 mmol/L (137-145) D 03/24/19 04:20 Potassium 4.7 mmol/L (3.6-5.0) 03/24/19 04:20 Chloride 94.8 mmol/L (98-107) L 03/24/19 04:20 Carbon Dioxide 32 mmol/L (22-30) H 03/24/19 04:20 17 mmol/L 03/24/19 04:20 BUN 53 mg/dL (9-20) H 03/24/19 04:20 2.3 mg/dL (0.8-1.5) H 03/24/19 04:20 Estimated GFR 35 ml/min 03/24/19 04:20 23 % 03/24/19 04:20 Glucose 97 mg/dL (75-100) 03/24/19 04:20 POC Glucose 123 (70-105) H 03/25/19 05:52 Lactic Acid 1.00 mmol/L (0.7-2.0) 02/21/19 20:58 Calcium 10.2 mg/dL (8.4-10.2) 03/24/19 04:20 Phosphorus 3.10 mg/dL (2.5-4.5) 03/15/19 04:38 Magnesium 2.00 mg/dL (1.7-2.3) 03/21/19 05:00 0.30 mg/dL (0.1-1.2) 03/21/19 05:00 AST 23 units/L (5-40) 03/21/19 05:00 ALT 18 units/L (7-56) 03/21/19 05:00 212 units/L (35-129) H 03/21/19 05:00 28.0 umol/L (25-60) 02/21/19 20:04 64 units/L (55-170) 02/22/19 03:42 CK-MB (CK-2) 3.7 ng/mL (0.0-4.0) 02/22/19 03:42 CK-MB (CK-2) Rel Index 5.7 (0-4) H 02/22/19 03:42 0.193 ng/mL (0.00-0.029) H* 02/22/19 03:42 6.7 g/dL (6.3-8.2) 03/21/19 05:00 2.2 g/dL (3.9-5) L 03/21/19 05:00 0.5 % 03/21/19 05:00 Triglycerides 51 mg/dL (2-149) 02/21/19 18:30 Cholesterol 82 mg/dL (50-199) 02/21/19 18:30 36 mg/dL (50-130) L 02/21/19 18:30 40 mg/dL (40-59) 02/21/19 18:30 2.05 % 02/21/19 18:30 TSH 2.760 mlU/mL (0.270-4.200) 02/21/19 20:04 PTH Intact 267.6 pg/mL (15-65) H 03/02/19 05:15 Salicylates < 0.3 mg/dL (2.8-20.0) L 02/21/19 20:04 Acetaminophen < 5.0 ug/mL (10.0-30.0) L 02/21/19 20:04 Hepatitis A IgM Ab Non-reactive (NonReactive) 02/23/19 11:20 Hep Bs Antigen Non-reactive (Negative) 02/23/19 11:20 Hep B Core IgM Ab Non-reactive (NonReactive) 02/23/19 11:20 Non-reactive (NonReactive) 02/23/19 11:20 Blood Type O POSITIVE 03/22/19 08:48 Antibody Screen Negative 03/22/19 08:48 Crossmatch See Detail 03/22/19 08:48 Active Medications - Current Medications Current Medications: Generic Name Dose Route Start Last Admin Trade Name Freq PRN Reason Stop Dose Admin Albuterol/Ipratropium 1 ampul 02/24/19 20:00 03/25/19 08:16 Duoneb *Not For Prn Use* IH 1 ampul TIDRT SANCHEZ Administration Lipase/Protease/Amylase 1 each 03/05/19 14:04 Pancreaze 10,500 Unit FEEDTUBE PRN PRN For Clogged Feeding Tube Epoetin Solitario 20,000 unit 03/24/19 11:17 Procrit IV UMA PRN hemodialysis Famotidine 20 mg 02/23/19 10:00 03/25/19 10:24 Pepcid PO 20 mg DAILY SANCHEZ Administration Heparin Sodium (Porcine) 5,000 unit 03/04/19 22:00 03/25/19 10:24 Heparin SUB-Q 5,000 unit Q12HR SANCHEZ Administration Hydrophilic Ointment 1 applic 02/21/19 18:24 03/05/19 08:16 Vaseline Lip Therapy TP 1 applic Q2HR PRN Administration Dry Lips Sodium Chloride 100 mls @ 999 mls/hr 02/26/19 09:00 Nacl 0.9% IV UMA PRN Hypotension Norepinephrine 8 mg/ Sodium 250 mls @ 3.75 mls/hr 03/18/19 13:00 03/19/19 09:17 Chloride IV 0 mcg/min TITR SANCHEZ 0 mls/hr Titration Protocol 2 MCG/MIN Insulin Human Regular 0 units 02/26/19 12:00 03/25/19 12:59 Humulin R SUB-Q Not Given Q6HR SANCHEZ Protocol Metoprolol Tartrate 2.5 mg 02/28/19 12:06 03/15/19 05:15 Lopressor IV 2.5 mg Q4HR PRN Administration Tachycardia Multi-Ingred Cream/Lotion/Oil/Oint 1 applic 02/21/19 18:24 Artificial Tears Ophth Oint OU Q4HR PRN Dry Eye(s) Risperidone 1 mg 02/25/19 13:00 03/25/19 10:24 Risperdal PO 1 mg DAILY SANCHEZ Administration Scopolamine 1 each 03/13/19 04:00 03/25/19 03:54 Transderm-Scop TD 1 each Q3D SANCHEZ Administration Sertraline HCl 100 mg 02/25/19 13:00 03/25/19 10:24 Zoloft PO 100 mg DAILY SANCHEZ Administration Simple Syrup 15 ml 03/05/19 14:04 Simple Syrup FEEDTUBE PRN PRN Hypoglycemia Simple Syrup 30 ml 03/05/19 14:04 Simple Syrup FEEDTUBE PRN PRN Hypoglycemia Sodium Bicarbonate 325 mg 03/05/19 14:04 Sodium Bicarbonate FEEDTUBE PRN PRN For Clogged Feeding Tube Tramadol HCl 50 mg 03/05/19 10:08 03/18/19 04:38 Ultram PO 50 mg Q6H PRN Administration Pain, Moderate (4-6) Trimethoprim/Sulfamethoxazole 160 mg 03/19/19 15:00 03/25/19 10:37 Bactrim 200-40 Mg/5 Ml PO 03/28/19 23:59 160 mg Q24HR SANCHEZ Administration Nutrition/Malnutrition Assess - Dietary Evaluation Nutrition/Malnutrition Findings: Nutrition Notes Start: 02/22/19 12:51 Freq: Status: Active Protocol: Document 03/19/19 11:10 LM (Rec: 03/19/19 11:17 LM [id number]) Nutrition Notes Initial or Follow up Reassessment Current Diagnosis Diabetes,Hypertension Other Pertinent Diagnosis Sacral PU, ESRD on HD (T/Thurs /Sat), Schizophrenia,Blind in L eye,S/P trach Current Diet Vital AF 1.2 at 70 ml/hr Labs/Tests Reviewed Pertinent Medications Humulin Height 5 ft 10 in Weight 88.75 kg [place] Body Weight (kg) 75.45 BMI 28.0 Subjective/Other Information Vital AF running 75 ml/hr at time of visit. Pt toleating TF . Percent of energy/protein needs met: 100%/100% Burn Absent Trauma Absent #2 Nutrition Diagnosis Increased nutrient needs ( specify in comment below) Diagnosis Progress(for reassessment Continues documentation) #1 Nutrition Diagnosis Inadequate oral intake Diagnosis Progress(for reassessment Continues documentation) Is patient on ventilator? Yes Is Patient Ambulatory and/or Out of Bed No REE-([facility]-confined to bed) 2024.576 Kcal/Kg value to use for calculation 18 Approximate Energy Requirements Using 1598 kcal/Kg Calculation Used for Recommendations Kcal/kg Additional Notes Protein Needs: 106-177g (1.2- 2g/kg) Fluid Needs: 1 ml/kcal Nutrition Intervention Change Diet Order: Continue TF Nutrition Support: Vital 1.2 at 70 ml/hr Water flush of 100 mls q 4 hrs Kcal 2,016 Protein (gm) 126 Fluid (mL) 1,362 Add Supplement/Snack (indicate name/kcal Abhilash BID /protein ) Provides kCal: 190 Provides Protein (gm) 5 Goal #1 TF tolerance Goal #2 Continue to meet at least 80% of calorie and protein needs via TF Anticipated Discharge Needs: Unable to determine at this time Follow-Up By: 03/26/19 Additional Comments F/U for TF rate/tolerance
[2019-03-26] MEDS: INSULIN REGULAR, HUMAN 100 UNITS/1 ML SUB-Q SCH ×4 (00:36→17:53)
[2019-03-26 06:42] LABS: Basophils # (Auto) 0.1 K/mm3 (0.0-0.1); Basophils % (Auto) 0.8 % (0.0-1.8); Eosinophils # (Auto) 0.7 K/mm3 (0.0-0.4); Hematocrit 25.7 % (35.5-45.6); Hemoglobin 8.1 gm/dl (11.8-15.2); Lymphocytes % (Auto) 11.4 % (13.4-35.0); Mean Corpuscular HGB Conc 32 % (32-34); Mean Corpuscular Volume 85 fl (84-94); Monocytes # (Auto) 0.5 K/mm3 (0.0-0.8); Monocytes % (Auto) 5.9 % (0.0-7.3); Platelet Count 352 K/mm3 (140-440); Red Blood Count 3.01 M/mm3 (3.65-5.03); Red Cell Distribution Width 19.2 % (13.2-15.2)
[2019-03-26 06:56] LABS: Calcium 10.1 mg/dL (8.4-10.2)
[2019-03-26] MEDS: IPRATROPIUM/ALBUTEROL SULFATE 3 ML AMPUL.NEB IH SCH ×3 (07:59→19:15)
--- NOTE | 2019-03-26 08:32 | Progress Note ---
Subjective Principal diagnosis: respiratory failure Interval history: Patient was seen today for follow-up of multiple renal related issues Patient appears to be resting comfortably Interdisciplinary notes that also reviewed Events of 24 hours vitals labs intake output medications were reviewed Past medical history: Reviewed Family history: Reviewed Social history: Reviewed Allergies: Reviewed Physical examination: Vitals: Reviewed HEENT:mild pallor or icterus oral mucosa moist Neck: Supple no JVD no thyromegaly Chest: Bilateral clear to auscultation anteriorly Heart: Regular rate and rhythm S1-S2 heard no S3-S4 Abdomen: Soft nontender no voluntary guarding rigidity rebound Extremity: Dry skin less than 1+ peripheral edema fistula: Working well Psychiatric: No evidence of agitation and aggression noted Labs and x-rays: Reviewed from today Assessment and plan ESRD: Continue with hemodialysis treatment 3 times a week as tolerated Saturday and Saturday Monitor dialysis related labs Ultrafiltration only as tolerated Anemia and end-stage renal disease currently on erythropoietin 3 times a week 20 ,000 units Prognosis guarded to poor due to end-stage renal disease and other comorbidities Multiple other comorbidities including pneumonia, status post tracheotomy, cardiomyopathy ejection fraction 35-40%, history of CVA, atrial fibrillation, decubitus ulceration Continue with supportive care We'll continue to follow and make recommendation for renal standpoint Objective - Vital Signs Vital signs: Vital Signs - 12hr 03/25/19 03/25/19 03/25/19 20:39 20:40 20:43 Temperature Pulse Rate 109 H Pulse Rate [ 125 H Anterior Bilateral Throughout] Pulse Rate [ From Monitor] Respiratory Rate Respiratory 23 Rate [Anterior Bilateral Throughout] Blood Pressure 133/74 O2 Sat by Pulse 98 Oximetry O2 Sat by Pulse Oximetry [ Anterior Bilateral Throughout] O2 Sat by Pulse Oximetry [ Assessment] 03/25/19 03/25/19 03/25/19 21:00 21:10 22:00 Temperature 97.2 F L Pulse Rate 117 H 113 H 114 H Pulse Rate [ Anterior Bilateral Throughout] Pulse Rate [ 114 H From Monitor] Respiratory 24 23 22 Rate Respiratory Rate [Anterior Bilateral Throughout] Blood Pressure 133/74 115/66 104/65 O2 Sat by Pulse 99 100 Oximetry O2 Sat by Pulse 99 Oximetry [ Anterior Bilateral Throughout] O2 Sat by Pulse Oximetry [ Assessment] 03/25/19 03/26/19 03/26/19 23:00 00:00 00:26 Temperature 97.4 F L Pulse Rate 103 H 113 H Pulse Rate [ Anterior Bilateral Throughout] Pulse Rate [ 114 H From Monitor] Respiratory 21 17 Rate Respiratory Rate [Anterior Bilateral Throughout] Blood Pressure 119/63 114/71 O2 Sat by Pulse 100 99 Oximetry O2 Sat by Pulse Oximetry [ Anterior Bilateral Throughout] O2 Sat by Pulse Oximetry [ Assessment] 03/26/19 03/26/19 03/26/19 01:00 02:00 02:20 Temperature Pulse Rate 115 H 102 H Pulse Rate [ Anterior Bilateral Throughout] Pulse Rate [ 114 H From Monitor] Respiratory 19 23 Rate Respiratory Rate [Anterior Bilateral Throughout] Blood Pressure 121/65 106/59 O2 Sat by Pulse 98 100 Oximetry O2 Sat by Pulse Oximetry [ Anterior Bilateral Throughout] O2 Sat by Pulse 99 Oximetry [ Assessment] 03/26/19 03/26/19 03/26/19 03:00 04:00 04:20 Temperature 97.4 F L Pulse Rate 102 H 101 H Pulse Rate [ Anterior Bilateral Throughout] Pulse Rate [ 114 H From Monitor] Respiratory 19 24 Rate Respiratory Rate [Anterior Bilateral Throughout] Blood Pressure 118/57 112/61 O2 Sat by Pulse 99 99 Oximetry O2 Sat by Pulse Oximetry [ Anterior Bilateral Throughout] O2 Sat by Pulse Oximetry [ Assessment] 03/26/19 03/26/19 03/26/19 05:00 05:50 06:00 Temperature 97.4 F L Pulse Rate 103 H 108 H Pulse Rate [ Anterior Bilateral Throughout] Pulse Rate [ From Monitor] Respiratory 20 23 Rate Respiratory Rate [Anterior Bilateral Throughout] Blood Pressure 117/53 115/70 O2 Sat by Pulse 98 99 Oximetry O2 Sat by Pulse Oximetry [ Anterior Bilateral Throughout] O2 Sat by Pulse Oximetry [ Assessment] 03/26/19 03/26/19 03/26/19 07:00 08:00 08:02 Temperature 98.4 F Pulse Rate 106 H 120 H Pulse Rate [ 112 H Anterior Bilateral Throughout] Pulse Rate [ 120 H From Monitor] Respiratory 26 H 25 H Rate Respiratory 20 Rate [Anterior Bilateral Throughout] Blood Pressure 110/63 123/71 O2 Sat by Pulse 97 100 Oximetry O2 Sat by Pulse Oximetry [ Anterior Bilateral Throughout] O2 Sat by Pulse Oximetry [ Assessment] 03/26/19 03/26/19 03/26/19 08:04 08:06 08:07 Temperature Pulse Rate Pulse Rate [ Anterior Bilateral Throughout] Pulse Rate [ From Monitor] Respiratory Rate Respiratory Rate [Anterior Bilateral Throughout] Blood Pressure O2 Sat by Pulse 96 96 Oximetry O2 Sat by Pulse Oximetry [ Anterior Bilateral Throughout] O2 Sat by Pulse 96 Oximetry [ Assessment] - Lab 03/26/19 05:35 03/26/19 05:35 Most recent lab results ABG pH 7.424 pH Units (7.350-7.450) 03/19/19 04:23 ABG pCO2 48.0 mm Hg 03/19/19 04:23 ABG pO2 78.3 mm Hg (80.0-90.0) L 03/19/19 04:23 ABG HCO3 30.7 mmol/L (20.0-26.0) H 03/19/19 04:23 ABG O2 Saturation 97.0 % (95.0-99.0) 03/19/19 04:23 Calcium 10.1 mg/dL (8.4-10.2) 03/26/19 05:35 Phosphorus 3.10 mg/dL (2.5-4.5) 03/15/19 04:38 Magnesium 2.00 mg/dL (1.7-2.3) 03/21/19 05:00 Medications & Allergies - Medications Allergies/Adverse Reactions: Allergies haloperidol [From Haldol] Adverse Reaction (Verified 03/13/18 12:10) Unknown haloperidol lactate [From Haldol] Adverse Reaction (Verified 03/13/18 12:10) Unknown Home Medications: Home Medications Medication Instructions Recorded Confirmed Last Taken Type risperiDONE [RisperDAL] 1 mg PO QAM 03/13/18 02/21/19 Unknown History Sertraline [Zoloft] 100 mg PO QDAY 08/26/18 02/21/19 Unknown History Polyethylene Glycol 3350 [Miralax 17 gm PO QDAY #30 packet 11/05/18 02/21/19 Unknown Rx 3350] Aspirin EC [Halfprin EC] 81 mg PO DAILY #30 11/19/18 02/21/19 Unknown Rx Docusate Sodium [Colace CAP] 100 mg PO BID #60 11/19/18 02/21/19 Unknown Rx Folic Acid [Folvite] 1 mg PO DAILY #30 tab 11/19/18 02/21/19 Unknown Rx Famotidine [Pepcid] 20 mg PO DAILY tablet 12/08/18 02/21/19 Unknown Rx Gabapentin [Neurontin] 100 mg PO QHS capsule 12/08/18 02/21/19 Unknown Rx Metoprolol [Lopressor TAB] 50 mg PO BID 30 Days tablet 12/08/18 02/21/19 Unknown Rx Sevelamer Carbonate [Renvela] 800 mg PO TIDWM tablet 12/08/18 02/21/19 Unknown Rx hydrALAZINE [Apresoline TAB] 100 mg PO Q8HR #120 tablet 12/08/18 02/21/19 Unknown Rx Acetaminophen [Acetaminophen TAB] 650 mg PO Q12H PRN 12/15/18 02/21/19 Unknown History Glucagon,Human Recombinant 1 mg IJ Q15MIN PRN 12/15/18 02/21/19 Unknown History [Glucagon Emergency Kit] Insulin Aspart [NovoLOG 100 See Protocol SQ QWEEK 12/15/18 02/21/19 Unknown History UNITS/ML VIAL] Active Medications: Generic Name Dose Route Start Last Admin Trade Name Freq PRN Reason Stop Dose Admin Albuterol/Ipratropium 1 ampul 02/24/19 20:00 03/26/19 07:59 Duoneb *Not For Prn Use* IH 1 ampul TIDRT SANCHEZ Administration Lipase/Protease/Amylase 1 each 03/05/19 14:04 Pancreaze 10,500 Unit FEEDTUBE PRN PRN For Clogged Feeding Tube Epoetin Solitario 20,000 unit 03/24/19 11:17 Procrit IV UMA PRN hemodialysis Famotidine 20 mg 02/23/19 10:00 03/25/19 10:24 Pepcid PO 20 mg DAILY SANCHEZ Administration Heparin Sodium (Porcine) 5,000 unit 03/04/19 22:00 03/25/19 22:08 Heparin SUB-Q 5,000 unit Q12HR SANCHEZ Administration Hydrophilic Ointment 1 applic 02/21/19 18:24 03/05/19 08:16 Vaseline Lip Therapy TP 1 applic Q2HR PRN Administration Dry Lips Sodium Chloride 100 mls @ 999 mls/hr 02/26/19 09:00 Nacl 0.9% IV UMA PRN Hypotension Norepinephrine 8 mg/ Sodium 250 mls @ 3.75 mls/hr 03/18/19 13:00 03/19/19 09:17 Chloride IV 0 mcg/min TITR SANCHEZ 0 mls/hr Titration Protocol 2 MCG/MIN Insulin Human Regular 0 units 02/26/19 12:00 03/26/19 05:52 Humulin R SUB-Q Not Given Q6HR SANCHEZ Protocol Metoprolol Tartrate 2.5 mg 02/28/19 12:06 03/15/19 05:15 Lopressor IV 2.5 mg Q4HR PRN Administration Tachycardia Multi-Ingred Cream/Lotion/Oil/Oint 1 applic 02/21/19 18:24 Artificial Tears Ophth Oint OU Q4HR PRN Dry Eye(s) Risperidone 1 mg 02/25/19 13:00 03/25/19 10:24 Risperdal PO 1 mg DAILY SANCHEZ Administration Scopolamine 1 each 03/13/19 04:00 03/25/19 03:54 Transderm-Scop TD 1 each Q3D SANCHEZ Administration Sertraline HCl 100 mg 02/25/19 13:00 03/25/19 10:24 Zoloft PO 100 mg DAILY SANCHEZ Administration Simple Syrup 15 ml 03/05/19 14:04 Simple Syrup FEEDTUBE PRN PRN Hypoglycemia Simple Syrup 30 ml 03/05/19 14:04 Simple Syrup FEEDTUBE PRN PRN Hypoglycemia Sodium Bicarbonate 325 mg 03/05/19 14:04 Sodium Bicarbonate FEEDTUBE PRN PRN For Clogged Feeding Tube Tramadol HCl 50 mg 03/05/19 10:08 03/18/19 04:38 Ultram PO 50 mg Q6H PRN Administration Pain, Moderate (4-6) Trimethoprim/Sulfamethoxazole 160 mg 03/19/19 15:00 03/25/19 10:37 Bactrim 200-40 Mg/5 Ml PO 03/28/19 23:59 160 mg Q24HR SANCHEZ Administration
[2019-03-26] MEDS: SULFAMETHOXAZOLE/TRIMETHOPRIM 200-40 MG/5 ML ORAL LIQD 30 ML PO SCH (09:08)
[2019-03-26] MEDS: FAMOTIDINE 20 MG TAB PO SCH (09:08)
[2019-03-26] MEDS: risperiDONE 1 MG TAB PO SCH (09:08)
[2019-03-26] MEDS: SERTRALINE 100 MG TAB PO SCH (09:08)
[2019-03-26] MEDS: HEPARIN 5,000 UNIT/1 ML VIAL SUB-Q SCH ×2 (09:08→22:02)
--- NOTE | 2019-03-26 12:28 | Progress Note ---
Assessment and Plan Imp: 1. Acute encephalopathy, probably metabolic or toxic 2. A/C systolic CHF 3. Dilated CMP 4. Pulm HTN 5. ESRD 6. RUL atelectasis, probably mucous plugging -> resolved 7. KEON pneumonia Rec: 1. Chest PT, Duonebs 2. Tolerating Tpiece; monitor 3. Avoid sedatives; resumed psych meds 4. DVT and GI PPx 5. TFs per PEG 6. HD per renal 7. Bactrim versus Acinetobacter sp. per ID recs; f/u CXR periodically to ensure resolution of KEON density 8. Complex decision-making 9. Prognosis is poor; patient hospice-appropriate, family refuses Await placement No family present Subjective Date of service: 03/26/19 Principal diagnosis: respiratory failure Interval history: No events. Mentation near usual poor baseline. Cannot give hx. On 28% per Tpiece. Active Medications Albuterol/Ipratropium (Duoneb *Not For Prn Use*) 1 ampul IH TIDRT [facility] Last Admin: 03/26/19 07:59 Dose: 1 ampul Documented by: Lipase/Protease/Amylase ([place] 10,500 Unit) 1 each FEEDTUBE PRN PRN PRN Reason: For Clogged Feeding Tube Epoetin Solitario (Procrit) 20,000 unit IV UMA PRN PRN Reason: hemodialysis Famotidine (Pepcid) 20 mg PO DAILY [facility] Last Admin: 03/26/19 09:08 Dose: 20 mg Documented by: Heparin Sodium (Porcine) (Heparin) 5,000 unit SUB-Q Q12HR [facility] Last Admin: 03/26/19 09:08 Dose: 5,000 unit Documented by: Hydrophilic Ointment (Vaseline Lip Therapy) 1 applic TP Q2HR PRN PRN Reason: Dry Lips Last Admin: 03/05/19 08:16 Dose: 1 applic Documented by: Sodium Chloride (Nacl 0.9%) 100 mls @ 999 mls/hr IV UMA PRN PRN Reason: Hypotension Norepinephrine 8 mg/ Sodium (Chloride) 250 mls @ 3.75 mls/hr IV TITR SANCHEZ; Helio col Last Titration: 03/19/19 09:17 Dose: 0 mcg/min, 0 mls/hr Documented by: Insulin Human Regular (Humulin R) 0 units SUB-Q Q6HR SANCHEZ; Protocol Last Admin: 03/26/19 05:52 Dose: Not Given Documented by: Metoprolol Tartrate (Lopressor) 2.5 mg IV Q4HR PRN PRN Reason: Tachycardia Last Admin: 03/15/19 05:15 Dose: 2.5 mg Documented by: Multi-Ingred Cream/Lotion/Oil/Oint (Artificial Tears Ophth Oint) 1 applic OU Q4HR PRN PRN Reason: Dry Eye(s) Risperidone (Risperdal) 1 mg PO DAILY [facility] Last Admin: 03/26/19 09:08 Dose: 1 mg Documented by: Scopolamine (Transderm-Scop) 1 each TD Q3D [facility] Last Admin: 03/25/19 03:54 Dose: 1 each Documented by: Sertraline HCl (Zoloft) 100 mg PO DAILY [facility] Last Admin: 03/26/19 09:08 Dose: 100 mg Documented by: Simple Syrup (Simple Syrup) 15 ml FEEDTUBE PRN PRN PRN Reason: Hypoglycemia Simple Syrup (Simple Syrup) 30 ml FEEDTUBE PRN PRN PRN Reason: Hypoglycemia Sodium Bicarbonate (Sodium Bicarbonate) 325 mg FEEDTUBE PRN PRN PRN Reason: For Clogged Feeding Tube Tramadol HCl (Ultram) 50 mg PO Q6H PRN PRN Reason: Pain, Moderate (4-6) Last Admin: 03/18/19 04:38 Dose: 50 mg Documented by: Trimethoprim/Sulfamethoxazole (Bactrim 200-40 Mg/5 Ml) 160 mg PO Q24HR [facility] Stop: 03/28/19 23:59 Last Admin: 03/26/19 09:08 Dose: 160 mg Documented by: Objective Vital Signs - 12hr 03/26/19 03/26/19 03/26/19 01:00 02:00 02:20 Temperature Pulse Rate 115 H 102 H Pulse Rate [ Anterior Bilateral Throughout] Pulse Rate [ 114 H From Monitor] Respiratory 19 23 Rate Respiratory Rate [Anterior Bilateral Throughout] Blood Pressure 121/65 106/59 O2 Sat by Pulse 98 100 Oximetry O2 Sat by Pulse 99 Oximetry [ Assessment] 03/26/19 03/26/19 03/26/19 03:00 04:00 04:20 Temperature 97.4 F L Pulse Rate 102 H 101 H Pulse Rate [ Anterior Bilateral Throughout] Pulse Rate [ 114 H From Monitor] Respiratory 19 24 Rate Respiratory Rate [Anterior Bilateral Throughout] Blood Pressure 118/57 112/61 O2 Sat by Pulse 99 99 Oximetry O2 Sat by Pulse Oximetry [ Assessment] 03/26/19 03/26/19 03/26/19 05:00 05:50 06:00 Temperature 97.4 F L Pulse Rate 103 H 108 H Pulse Rate [ Anterior Bilateral Throughout] Pulse Rate [ From Monitor] Respiratory 20 23 Rate Respiratory Rate [Anterior Bilateral Throughout] Blood Pressure 117/53 115/70 O2 Sat by Pulse 98 99 Oximetry O2 Sat by Pulse Oximetry [ Assessment] 03/26/19 03/26/19 03/26/19 07:00 08:00 08:02 Temperature 98.4 F Pulse Rate 106 H 120 H Pulse Rate [ 112 H Anterior Bilateral Throughout] Pulse Rate [ 120 H From Monitor] Respiratory 26 H 25 H Rate Respiratory 20 Rate [Anterior Bilateral Throughout] Blood Pressure 110/63 123/71 O2 Sat by Pulse 97 100 Oximetry O2 Sat by Pulse Oximetry [ Assessment] 03/26/19 03/26/19 03/26/19 08:04 08:06 08:07 Temperature Pulse Rate Pulse Rate [ Anterior Bilateral Throughout] Pulse Rate [ From Monitor] Respiratory Rate Respiratory Rate [Anterior Bilateral Throughout] Blood Pressure O2 Sat by Pulse 96 96 Oximetry O2 Sat by Pulse 96 Oximetry [ Assessment] 03/26/19 03/26/19 09:00 09:29 Temperature Pulse Rate 119 H 120 H Pulse Rate [ Anterior Bilateral Throughout] Pulse Rate [ From Monitor] Respiratory 26 H Rate Respiratory Rate [Anterior Bilateral Throughout] Blood Pressure 114/70 O2 Sat by Pulse 100 Oximetry O2 Sat by Pulse Oximetry [ Assessment] Constitutional: no acute distress, alert Eyes: non-icteric ENT: oropharynx moist Neck: supple Effort: normal Ascultation: Bilateral: other (coarse BS bilaterally) Percussion: Bilateral: not dull Cardiovascular: other (tachy, RR; no mrg) Gastrointestinal: normoactive bowel sounds, soft, non-tender, non-distended, other (ostomy in place, brown stool) Extremities: no cyanosis, no edema, pink and warm Neurologic: other (mild weakness LUE, o/w nonfocal) Psychiatric: other (unable to assess) CBC and BMP: 03/26/19 05:35 03/26/19 05:35 ABG, PT/INR, D-dimer: ABG POC ABG pH 7.510 (7.35-7.45) H 03/18/19 06:38 ABG pH 7.424 pH Units (7.350-7.450) 03/19/19 04:23 POC ABG pCO2 38.9 (35-45) 03/18/19 06:38 ABG pCO2 48.0 mm Hg 03/19/19 04:23 POC ABG pO2 164 (80-105) H 03/18/19 06:38 ABG pO2 78.3 mm Hg (80.0-90.0) L 03/19/19 04:23 POC ABG HCO3 31.0 (22-26 mml/L) 03/18/19 06:38 POC ABG Total CO2 32 (23-27mmol/L) 03/18/19 06:38 POC ABG O2 Sat 100 03/18/19 06:38 ABG O2 Saturation 97.0 % (95.0-99.0) 03/19/19 04:23 PT/INR, D-dimer PT 16.3 Sec. (12.2-14.9) H 03/01/19 09:39 INR 1.35 (0.87-1.13) H 03/01/19 09:39 2987.82 ng/mlDDU (0-234) H 02/22/19 05:54 Abnormal lab findings: Abnormal Labs 02/21/19 02/21/19 02/21/19 18:30 18:30 18:30 WBC RBC 3.26 L Hgb 8.8 L Hct 29.0 L MCH 27 L MCHC 30 L RDW 19.1 H Lymph % (Auto) 6.1 L [place] % (Auto) Eos % (Auto) Lymph # 0.4 L [place] # Eos # Seg Neutrophils % 86.2 H Seg Neuts % (Manual) Lymphocytes % (Manual) Eosinophils % (Manual) Seg Neutrophils # Lymphocytes # (Manual) Eosinophils # (Manual) PT INR D-Dimer POC ABG pH POC ABG pCO2 POC ABG pO2 ABG pO2 ABG HCO3 ABG Base Excess ABG Hemoglobin Oxyhemoglobin Sodium 133 L Potassium 3.3 L Chloride 93.1 L Carbon Dioxide 33 H BUN Creatinine Glucose 161 H POC Glucose Calcium Phosphorus ALT Alkaline Phosphatase 136 H Total Creatine Kinase 37 L CK-MB (CK-2) Rel Index Troponin T 0.192 H* Albumin 2.4 L LDL Cholesterol Direct 36 L PTH Intact Salicylates Acetaminophen Crossmatch 02/21/19 02/21/19 02/21/19 18:42 20:04 20:04 WBC RBC Hgb Hct MCH MCHC RDW Lymph % (Auto) [place] % (Auto) Eos % (Auto) Lymph # [place] # Eos # Seg Neutrophils % Seg Neuts % (Manual) Lymphocytes % (Manual) Eosinophils % (Manual) Seg Neutrophils # Lymphocytes # (Manual) Eosinophils # (Manual) PT INR D-Dimer POC ABG pH POC ABG pCO2 56.7 H POC ABG pO2 291 H ABG pO2 ABG HCO3 ABG Base Excess ABG Hemoglobin Oxyhemoglobin Sodium Potassium Chloride Carbon Dioxide BUN Creatinine Glucose POC Glucose Calcium Phosphorus ALT Alkaline Phosphatase Total Creatine Kinase CK-MB (CK-2) Rel Index Troponin T Albumin LDL Cholesterol Direct PTH Intact Salicylates < 0.3 L Acetaminophen < 5.0 L Crossmatch 02/21/19 02/22/19 02/22/19 22:35 03:42 03:42 WBC RBC 3.20 L Hgb 8.8 L Hct 27.6 L MCH MCHC RDW 18.9 H Lymph % (Auto) 7.4 L [place] % (Auto) Eos % (Auto) Lymph # 0.7 L [place] # Eos # Seg Neutrophils % 84.7 H Seg Neuts % (Manual) Lymphocytes % (Manual) Eosinophils % (Manual) Seg Neutrophils # Lymphocytes # (Manual) Eosinophils # (Manual) PT INR D-Dimer POC ABG pH POC ABG pCO2 POC ABG pO2 ABG pO2 ABG HCO3 ABG Base Excess ABG Hemoglobin Oxyhemoglobin Sodium 134 L Potassium 2.6 L* D Chloride Carbon Dioxide BUN Creatinine Glucose POC Glucose Calcium Phosphorus ALT Alkaline Phosphatase Total Creatine Kinase CK-MB (CK-2) Rel Index 5.2 H Troponin T 0.202 H* Albumin LDL Cholesterol Direct PTH Intact Salicylates Acetaminophen Crossmatch 02/22/19 02/22/19 02/22/19 03:42 05:54 09:04 WBC RBC Hgb Hct MCH MCHC RDW Lymph % (Auto) [place] % (Auto) Eos % (Auto) Lymph # [place] # Eos # Seg Neutrophils % Seg Neuts % (Manual) Lymphocytes % (Manual) Eosinophils % (Manual) Seg Neutrophils # Lymphocytes # (Manual) Eosinophils # (Manual) PT INR D-Dimer 2987.82 H POC ABG pH 7.451 H POC ABG pCO2 POC ABG pO2 ABG pO2 ABG HCO3 ABG Base Excess ABG Hemoglobin Oxyhemoglobin Sodium Potassium Chloride Carbon Dioxide BUN Creatinine Glucose POC Glucose Calcium Phosphorus ALT Alkaline Phosphatase Total Creatine Kinase CK-MB (CK-2) Rel Index 5.7 H Troponin T 0.193 H* Albumin LDL Cholesterol Direct PTH Intact Salicylates Acetaminophen Crossmatch 02/22/19 02/22/19 02/23/19 10:36 23:56 00:52 WBC RBC Hgb Hct MCH MCHC RDW Lymph % (Auto) [place] % (Auto) Eos % (Auto) Lymph # [place] # Eos # Seg Neutrophils % Seg Neuts % (Manual) Lymphocytes % (Manual) Eosinophils % (Manual) Seg Neutrophils # Lymphocytes # (Manual) Eosinophils # (Manual) PT INR D-Dimer POC ABG pH POC ABG pCO2 POC ABG pO2 ABG pO2 ABG HCO3 ABG Base Excess ABG Hemoglobin Oxyhemoglobin Sodium Potassium 3.1 L Chloride Carbon Dioxide BUN Creatinine Glucose POC Glucose 58 L 111 H Calcium Phosphorus ALT Alkaline Phosphatase Total Creatine Kinase CK-MB (CK-2) Rel Index Troponin T Albumin LDL Cholesterol Direct PTH Intact Salicylates Acetaminophen Crossmatch 02/23/19 02/23/19 02/23/19 05:00 06:35 14:26 WBC RBC Hgb Hct MCH MCHC RDW Lymph % (Auto) [place] % (Auto) Eos % (Auto) Lymph # [place] # Eos # Seg Neutrophils % Seg Neuts % (Manual) Lymphocytes % (Manual) Eosinophils % (Manual) Seg Neutrophils # Lymphocytes # (Manual) Eosinophils # (Manual) PT INR D-Dimer POC ABG pH POC ABG pCO2 POC ABG pO2 ABG pO2 ABG HCO3 ABG Base Excess ABG Hemoglobin Oxyhemoglobin Sodium 135 L Potassium 3.1 L Chloride Carbon Dioxide BUN 21 H Creatinine 2.0 H Glucose 57 L POC Glucose 64 L 62 L Calcium Phosphorus ALT Alkaline Phosphatase Total Creatine Kinase CK-MB (CK-2) Rel Index Troponin T Albumin LDL Cholesterol Direct PTH Intact Salicylates Acetaminophen Crossmatch 02/24/19 02/24/19 02/24/19 02:11 04:12 04:55 WBC RBC 2.84 L Hgb 7.8 L Hct 24.5 L MCH MCHC RDW 19.5 H Lymph % (Auto) [place] % (Auto) Eos % (Auto) Lymph # [place] # Eos # Seg Neutrophils % Seg Neuts % (Manual) Lymphocytes % (Manual) Eosinophils % (Manual) Seg Neutrophils # Lymphocytes # (Manual) Eosinophils # (Manual) PT INR D-Dimer POC ABG pH 7.511 H POC ABG pCO2 33.9 L POC ABG pO2 62 L ABG pO2 ABG HCO3 ABG Base Excess ABG Hemoglobin Oxyhemoglobin Sodium Potassium Chloride Carbon Dioxide BUN Creatinine Glucose POC Glucose 69 L Calcium Phosphorus ALT Alkaline Phosphatase Total Creatine Kinase CK-MB (CK-2) Rel Index Troponin T Albumin LDL Cholesterol Direct PTH Intact Salicylates Acetaminophen Crossmatch 02/24/19 02/24/19 02/25/19 04:55 05:41 04:45 WBC RBC Hgb Hct MCH MCHC RDW Lymph % (Auto) [place] % (Auto) Eos % (Auto) Lymph # [place] # Eos # Seg Neutrophils % Seg Neuts % (Manual) Lymphocytes % (Manual) Eosinophils % (Manual) Seg Neutrophils # Lymphocytes # (Manual) Eosinophils # (Manual) PT INR D-Dimer POC ABG pH 7.466 H POC ABG pCO2 POC ABG pO2 75 L ABG pO2 ABG HCO3 ABG Base Excess ABG Hemoglobin Oxyhemoglobin Sodium Potassium Chloride Carbon Dioxide BUN Creatinine 1.8 H Glucose 73 L POC Glucose 127 H Calcium Phosphorus ALT Alkaline Phosphatase Total Creatine Kinase CK-MB (CK-2) Rel Index Troponin T Albumin LDL Cholesterol Direct PTH Intact Salicylates Acetaminophen Crossmatch 02/25/19 02/25/19 02/26/19 16:34 21:33 03:45 WBC RBC 2.96 L Hgb 8.0 L Hct 25.8 L MCH 27 L MCHC 31 L RDW 20.0 H Lymph % (Auto) [place] % (Auto) Eos % (Auto) Lymph # [place] # Eos # Seg Neutrophils % Seg Neuts % (Manual) Lymphocytes % (Manual) Eosinophils % (Manual) Seg Neutrophils # Lymphocytes # (Manual) Eosinophils # (Manual) PT INR D-Dimer POC ABG pH POC ABG pCO2 POC ABG pO2 ABG pO2 ABG HCO3 ABG Base Excess ABG Hemoglobin Oxyhemoglobin Sodium Potassium Chloride Carbon Dioxide BUN Creatinine Glucose POC Glucose 141 H 106 H Calcium Phosphorus ALT Alkaline Phosphatase Total Creatine Kinase CK-MB (CK-2) Rel Index Troponin T Albumin LDL Cholesterol Direct PTH Intact Salicylates Acetaminophen Crossmatch 02/26/19 02/26/19 02/26/19 03:45 04:13 07:53 WBC RBC Hgb Hct MCH MCHC RDW Lymph % (Auto) [place] % (Auto) Eos % (Auto) Lymph # [place] # Eos # Seg Neutrophils % Seg Neuts % (Manual) Lymphocytes % (Manual) Eosinophils % (Manual) Seg Neutrophils # Lymphocytes # (Manual) Eosinophils # (Manual) PT INR D-Dimer POC ABG pH 7.470 H POC ABG pCO2 POC ABG pO2 ABG pO2 ABG HCO3 ABG Base Excess ABG Hemoglobin Oxyhemoglobin Sodium Potassium Chloride Carbon Dioxide BUN Creatinine 1.8 H Glucose POC Glucose 110 H Calcium Phosphorus ALT Alkaline Phosphatase Total Creatine Kinase CK-MB (CK-2) Rel Index Troponin T Albumin LDL Cholesterol Direct PTH Intact Salicylates Acetaminophen Crossmatch 02/26/19 02/26/19 02/27/19 11:56 17:43 00:12 WBC RBC Hgb Hct MCH MCHC RDW Lymph % (Auto) [place] % (Auto) Eos % (Auto) Lymph # [place] # Eos # Seg Neutrophils % Seg Neuts % (Manual) Lymphocytes % (Manual) Eosinophils % (Manual) Seg Neutrophils # Lymphocytes # (Manual) Eosinophils # (Manual) PT INR D-Dimer POC ABG pH POC ABG pCO2 POC ABG pO2 ABG pO2 ABG HCO3 ABG Base Excess ABG Hemoglobin Oxyhemoglobin Sodium Potassium Chloride Carbon Dioxide BUN Creatinine Glucose POC Glucose 112 H 127 H 127 H Calcium Phosphorus ALT Alkaline Phosphatase Total Creatine Kinase CK-MB (CK-2) Rel Index Troponin T Albumin LDL Cholesterol Direct PTH Intact Salicylates Acetaminophen Crossmatch 02/27/19 02/27/19 02/27/19 04:35 13:15 18:02 WBC RBC Hgb Hct MCH MCHC RDW Lymph % (Auto) [place] % (Auto) Eos % (Auto) Lymph # [place] # Eos # Seg Neutrophils % Seg Neuts % (Manual) Lymphocytes % (Manual) Eosinophils % (Manual) Seg Neutrophils # Lymphocytes # (Manual) Eosinophils # (Manual) PT INR D-Dimer POC ABG pH 7.483 H POC ABG pCO2 POC ABG pO2 61 L ABG pO2 ABG HCO3 ABG Base Excess ABG Hemoglobin Oxyhemoglobin Sodium Potassium Chloride Carbon Dioxide BUN Creatinine Glucose POC Glucose 143 H 106 H Calcium Phosphorus ALT Alkaline Phosphatase Total Creatine Kinase CK-MB (CK-2) Rel Index Troponin T Albumin LDL Cholesterol Direct PTH Intact Salicylates Acetaminophen Crossmatch 02/28/19 02/28/19 02/28/19 05:50 11:59 17:52 WBC RBC Hgb Hct MCH MCHC RDW Lymph % (Auto) [place] % (Auto) Eos % (Auto) Lymph # [place] # Eos # Seg Neutrophils % Seg Neuts % (Manual) Lymphocytes % (Manual) Eosinophils % (Manual) Seg Neutrophils # Lymphocytes # (Manual) Eosinophils # (Manual) PT INR D-Dimer POC ABG pH POC ABG pCO2 POC ABG pO2 ABG pO2 ABG HCO3 ABG Base Excess ABG Hemoglobin Oxyhemoglobin Sodium Potassium Chloride Carbon Dioxide BUN Creatinine Glucose POC Glucose 134 H 128 H 142 H Calcium Phosphorus ALT Alkaline Phosphatase Total Creatine Kinase CK-MB (CK-2) Rel Index Troponin T Albumin LDL Cholesterol Direct PTH Intact Salicylates Acetaminophen Crossmatch 02/28/19 03/01/19 03/01/19 23:13 05:40 09:39 WBC RBC Hgb Hct MCH MCHC RDW Lymph % (Auto) [place] % (Auto) Eos % (Auto) Lymph # [place] # Eos # Seg Neutrophils % Seg Neuts % (Manual) Lymphocytes % (Manual) Eosinophils % (Manual) Seg Neutrophils # Lymphocytes # (Manual) Eosinophils # (Manual) PT 16.3 H INR 1.35 H D-Dimer POC ABG pH POC ABG pCO2 POC ABG pO2 ABG pO2 ABG HCO3 ABG Base Excess ABG Hemoglobin Oxyhemoglobin Sodium Potassium Chloride Carbon Dioxide BUN Creatinine Glucose POC Glucose 112 H 111 H Calcium Phosphorus ALT Alkaline Phosphatase Total Creatine Kinase CK-MB (CK-2) Rel Index Troponin T Albumin LDL Cholesterol Direct PTH Intact Salicylates Acetaminophen Crossmatch 03/01/19 03/01/19 03/01/19 11:56 13:54 17:59 WBC RBC Hgb Hct MCH MCHC RDW Lymph % (Auto) [place] % (Auto) Eos % (Auto) Lymph # [place] # Eos # Seg Neutrophils % Seg Neuts % (Manual) Lymphocytes % (Manual) Eosinophils % (Manual) Seg Neutrophils # Lymphocytes # (Manual) Eosinophils # (Manual) PT INR D-Dimer POC ABG pH POC ABG pCO2 POC ABG pO2 ABG pO2 ABG HCO3 ABG Base Excess ABG Hemoglobin Oxyhemoglobin Sodium Potassium Chloride Carbon Dioxide BUN 33 H Creatinine 2.8 H D Glucose 176 H POC Glucose 199 H 147 H Calcium Phosphorus ALT Alkaline Phosphatase Total Creatine Kinase CK-MB (CK-2) Rel Index Troponin T Albumin LDL Cholesterol Direct PTH Intact Salicylates Acetaminophen Crossmatch 03/02/19 03/02/19 03/02/19 05:15 05:15 05:15 WBC RBC 2.73 L Hgb 7.4 L Hct 23.0 L MCH 27 L MCHC RDW 19.9 H Lymph % (Auto) [place] % (Auto) 7.9 H Eos % (Auto) 7.6 H Lymph # 1.0 L [place] # Eos # 0.5 H Seg Neutrophils % Seg Neuts % (Manual) Lymphocytes % (Manual) Eosinophils % (Manual) Seg Neutrophils # Lymphocytes # (Manual) Eosinophils # (Manual) PT INR D-Dimer POC ABG pH POC ABG pCO2 POC ABG pO2 ABG pO2 ABG HCO3 ABG Base Excess ABG Hemoglobin Oxyhemoglobin Sodium Potassium Chloride Carbon Dioxide BUN 43 H Creatinine 3.2 H Glucose POC Glucose Calcium Phosphorus 2.30 L ALT Alkaline Phosphatase Total Creatine Kinase CK-MB (CK-2) Rel Index Troponin T Albumin LDL Cholesterol Direct PTH Intact 267.6 H Salicylates Acetaminophen Crossmatch 03/02/19 03/02/19 03/03/19 12:32 18:20 13:30 WBC RBC Hgb Hct MCH MCHC RDW Lymph % (Auto) [place] % (Auto) Eos % (Auto) Lymph # [place] # Eos # Seg Neutrophils % Seg Neuts % (Manual) Lymphocytes % (Manual) Eosinophils % (Manual) Seg Neutrophils # Lymphocytes # (Manual) Eosinophils # (Manual) PT INR D-Dimer POC ABG pH POC ABG pCO2 POC ABG pO2 ABG pO2 ABG HCO3 ABG Base Excess ABG Hemoglobin Oxyhemoglobin Sodium Potassium Chloride 97.3 L Carbon Dioxide BUN 26 H Creatinine 2.2 H Glucose 73 L POC Glucose 111 H 156 H Calcium Phosphorus ALT Alkaline Phosphatase Total Creatine Kinase CK-MB (CK-2) Rel Index Troponin T Albumin LDL Cholesterol Direct PTH Intact Salicylates Acetaminophen Crossmatch 03/04/19 03/04/19 03/04/19 00:02 05:37 05:40 WBC RBC 2.63 L Hgb 7.2 L Hct 22.2 L MCH MCHC RDW 20.2 H Lymph % (Auto) 10.5 L [place] % (Auto) Eos % (Auto) 4.6 H Lymph # 0.7 L [place] # Eos # Seg Neutrophils % 76.9 H Seg Neuts % (Manual) Lymphocytes % (Manual) Eosinophils % (Manual) Seg Neutrophils # Lymphocytes # (Manual) Eosinophils # (Manual) PT INR D-Dimer POC ABG pH POC ABG pCO2 POC ABG pO2 ABG pO2 ABG HCO3 ABG Base Excess ABG Hemoglobin Oxyhemoglobin Sodium Potassium Chloride Carbon Dioxide BUN Creatinine Glucose POC Glucose 136 H 123 H Calcium Phosphorus ALT Alkaline Phosphatase Total Creatine Kinase CK-MB (CK-2) Rel Index Troponin T Albumin LDL Cholesterol Direct PTH Intact Salicylates Acetaminophen Crossmatch 03/04/19 03/04/19 03/04/19 05:40 11:39 23:20 WBC RBC Hgb Hct MCH MCHC RDW Lymph % (Auto) [place] % (Auto) Eos % (Auto) Lymph # [place] # Eos # Seg Neutrophils % Seg Neuts % (Manual) Lymphocytes % (Manual) Eosinophils % (Manual) Seg Neutrophils # Lymphocytes # (Manual) Eosinophils # (Manual) PT INR D-Dimer POC ABG pH POC ABG pCO2 POC ABG pO2 ABG pO2 ABG HCO3 ABG Base Excess ABG Hemoglobin Oxyhemoglobin Sodium Potassium Chloride Carbon Dioxide BUN 34 H Creatinine 2.7 H Glucose 114 H POC Glucose 175 H 151 H Calcium Phosphorus ALT Alkaline Phosphatase Total Creatine Kinase CK-MB (CK-2) Rel Index Troponin T Albumin LDL Cholesterol Direct PTH Intact Salicylates Acetaminophen Crossmatch 03/05/19 03/05/19 03/05/19 05:37 12:08 17:11 WBC RBC Hgb Hct MCH MCHC RDW Lymph % (Auto) [place] % (Auto) Eos % (Auto) Lymph # [place] # Eos # Seg Neutrophils % Seg Neuts % (Manual) Lymphocytes % (Manual) Eosinophils % (Manual) Seg Neutrophils # Lymphocytes # (Manual) Eosinophils # (Manual) PT INR D-Dimer POC ABG pH POC ABG pCO2 POC ABG pO2 ABG pO2 ABG HCO3 ABG Base Excess ABG Hemoglobin Oxyhemoglobin Sodium Potassium Chloride Carbon Dioxide BUN Creatinine Glucose POC Glucose 134 H 135 H 135 H Calcium Phosphorus ALT Alkaline Phosphatase Total Creatine Kinase CK-MB (CK-2) Rel Index Troponin T Albumin LDL Cholesterol Direct PTH Intact Salicylates Acetaminophen Crossmatch 08/03/06/19 03/06/19 00:16 13:05 18:09 WBC RBC Hgb Hct MCH MCHC RDW Lymph % (Auto) [place] % (Auto) Eos % (Auto) Lymph # [place] # Eos # Seg Neutrophils % Seg Neuts % (Manual) Lymphocytes % (Manual) Eosinophils % (Manual) Seg Neutrophils # Lymphocytes # (Manual) Eosinophils # (Manual) PT INR D-Dimer POC ABG pH POC ABG pCO2 POC ABG pO2 ABG pO2 ABG HCO3 ABG Base Excess ABG Hemoglobin Oxyhemoglobin Sodium Potassium Chloride Carbon Dioxide BUN Creatinine Glucose POC Glucose 117 H 113 H 131 H Calcium Phosphorus ALT Alkaline Phosphatase Total Creatine Kinase CK-MB (CK-2) Rel Index Troponin T Albumin LDL Cholesterol Direct PTH Intact Salicylates Acetaminophen Crossmatch 03/07/19 03/08/19 03/08/19 05:25 05:33 16:00 WBC RBC 2.44 L Hgb 6.6 L Hct 20.8 L MCH 27 L MCHC RDW 19.2 H Lymph % (Auto) [place] % (Auto) Eos % (Auto) 8.6 H Lymph # 0.8 L [place] # Eos # 0.5 H Seg Neutrophils % 70.7 H Seg Neuts % (Manual) Lymphocytes % (Manual) Eosinophils % (Manual) Seg Neutrophils # Lymphocytes # (Manual) Eosinophils # (Manual) PT INR D-Dimer POC ABG pH POC ABG pCO2 POC ABG pO2 ABG pO2 ABG HCO3 ABG Base Excess ABG Hemoglobin Oxyhemoglobin Sodium Potassium Chloride Carbon Dioxide BUN Creatinine Glucose POC Glucose 106 H 108 H Calcium Phosphorus ALT Alkaline Phosphatase Total Creatine Kinase CK-MB (CK-2) Rel Index Troponin T Albumin LDL Cholesterol Direct PTH Intact Salicylates Acetaminophen Crossmatch 03/08/19 03/08/19 03/08/19 16:00 18:38 Unknown WBC RBC Hgb Hct MCH MCHC RDW Lymph % (Auto) [place] % (Auto) Eos % (Auto) Lymph # [place] # Eos # Seg Neutrophils % Seg Neuts % (Manual) Lymphocytes % (Manual) Eosinophils % (Manual) Seg Neutrophils # Lymphocytes # (Manual) Eosinophils # (Manual) PT INR D-Dimer POC ABG pH POC ABG pCO2 POC ABG pO2 ABG pO2 ABG HCO3 ABG Base Excess ABG Hemoglobin Oxyhemoglobin Sodium Potassium 5.4 H D Chloride Carbon Dioxide BUN 47 H Creatinine 2.6 H Glucose POC Glucose 123 H Calcium Phosphorus ALT < 5 L Alkaline Phosphatase Total Creatine Kinase CK-MB (CK-2) Rel Index Troponin T Albumin 2.2 L LDL Cholesterol Direct PTH Intact Salicylates Acetaminophen Crossmatch See Detail 03/09/19 03/09/19 03/09/19 10:48 12:28 13:53 WBC RBC 2.85 L Hgb 7.7 L Hct 24.2 L MCH 27 L MCHC RDW 18.7 H Lymph % (Auto) [place] % (Auto) Eos % (Auto) Lymph # [place] # Eos # Seg Neutrophils % Seg Neuts % (Manual) Lymphocytes % (Manual) Eosinophils % (Manual) Seg Neutrophils # Lymphocytes # (Manual) Eosinophils # (Manual) PT INR D-Dimer POC ABG pH POC ABG pCO2 POC ABG pO2 ABG pO2 ABG HCO3 30.5 H ABG Base Excess 5.6 H ABG Hemoglobin 8.1 L Oxyhemoglobin 93.8 L Sodium Potassium Chloride Carbon Dioxide BUN Creatinine Glucose POC Glucose 114 H Calcium Phosphorus ALT Alkaline Phosphatase Total Creatine Kinase CK-MB (CK-2) Rel Index Troponin T Albumin LDL Cholesterol Direct PTH Intact Salicylates Acetaminophen Crossmatch 03/09/19 03/09/19 03/10/19 17:58 23:53 12:01 WBC RBC Hgb Hct MCH MCHC RDW Lymph % (Auto) [place] % (Auto) Eos % (Auto) Lymph # [place] # Eos # Seg Neutrophils % Seg Neuts % (Manual) Lymphocytes % (Manual) Eosinophils % (Manual) Seg Neutrophils # Lymphocytes # (Manual) Eosinophils # (Manual) PT INR D-Dimer POC ABG pH POC ABG pCO2 POC ABG pO2 ABG pO2 ABG HCO3 ABG Base Excess ABG Hemoglobin Oxyhemoglobin Sodium Potassium Chloride Carbon Dioxide BUN Creatinine Glucose POC Glucose 108 H 128 H 144 H Calcium Phosphorus ALT Alkaline Phosphatase Total Creatine Kinase CK-MB (CK-2) Rel Index Troponin T Albumin LDL Cholesterol Direct PTH Intact Salicylates Acetaminophen Crossmatch 03/10/19 03/11/19 03/11/19 16:50 00:24 05:02 WBC RBC Hgb Hct MCH MCHC RDW Lymph % (Auto) [place] % (Auto) Eos % (Auto) Lymph # [place] # Eos # Seg Neutrophils % Seg Neuts % (Manual) Lymphocytes % (Manual) Eosinophils % (Manual) Seg Neutrophils # Lymphocytes # (Manual) Eosinophils # (Manual) PT INR D-Dimer POC ABG pH POC ABG pCO2 POC ABG pO2 ABG pO2 ABG HCO3 ABG Base Excess ABG Hemoglobin Oxyhemoglobin Sodium Potassium Chloride Carbon Dioxide BUN Creatinine Glucose POC Glucose 147 H 123 H 120 H Calcium Phosphorus ALT Alkaline Phosphatase Total Creatine Kinase CK-MB (CK-2) Rel Index Troponin T Albumin LDL Cholesterol Direct PTH Intact Salicylates Acetaminophen Crossmatch 03/11/19 03/11/19 03/11/19 11:56 12:20 18:37 WBC RBC Hgb Hct MCH MCHC RDW Lymph % (Auto) [place] % (Auto) Eos % (Auto) Lymph # [place] # Eos # Seg Neutrophils % Seg Neuts % (Manual) Lymphocytes % (Manual) Eosinophils % (Manual) Seg Neutrophils # Lymphocytes # (Manual) Eosinophils # (Manual) PT INR D-Dimer POC ABG pH POC ABG pCO2 POC ABG pO2 ABG pO2 ABG HCO3 ABG Base Excess ABG Hemoglobin Oxyhemoglobin Sodium Potassium 5.2 H Chloride Carbon Dioxide BUN Creatinine Glucose POC Glucose 123 H 125 H Calcium Phosphorus ALT Alkaline Phosphatase Total Creatine Kinase CK-MB (CK-2) Rel Index Troponin T Albumin LDL Cholesterol Direct PTH Intact Salicylates Acetaminophen Crossmatch 03/11/19 03/12/19 03/12/19 22:52 12:04 18:25 WBC RBC Hgb Hct MCH MCHC RDW Lymph % (Auto) [place] % (Auto) Eos % (Auto) Lymph # [place] # Eos # Seg Neutrophils % Seg Neuts % (Manual) Lymphocytes % (Manual) Eosinophils % (Manual) Seg Neutrophils # Lymphocytes # (Manual) Eosinophils # (Manual) PT INR D-Dimer POC ABG pH POC ABG pCO2 POC ABG pO2 ABG pO2 ABG HCO3 ABG Base Excess ABG Hemoglobin Oxyhemoglobin Sodium Potassium Chloride Carbon Dioxide BUN Creatinine Glucose POC Glucose 110 H 106 H 118 H Calcium Phosphorus ALT Alkaline Phosphatase Total Creatine Kinase CK-MB (CK-2) Rel Index Troponin T Albumin LDL Cholesterol Direct PTH Intact Salicylates Acetaminophen Crossmatch 03/12/19 03/13/19 03/13/19 23:36 04:38 04:38 WBC RBC 2.95 L Hgb 7.9 L Hct 24.9 L MCH 27 L MCHC RDW 19.9 H Lymph % (Auto) 11.1 L [place] % (Auto) 8.1 H Eos % (Auto) 4.4 H Lymph # 0.9 L [place] # Eos # Seg Neutrophils % 75.4 H Seg Neuts % (Manual) Lymphocytes % (Manual) Eosinophils % (Manual) Seg Neutrophils # Lymphocytes # (Manual) Eosinophils # (Manual) PT INR D-Dimer POC ABG pH POC ABG pCO2 POC ABG pO2 ABG pO2 ABG HCO3 ABG Base Excess ABG Hemoglobin Oxyhemoglobin Sodium 136 L Potassium 5.1 H Chloride 93.8 L Carbon Dioxide BUN 48 H Creatinine 2.7 H Glucose 102 H POC Glucose 115 H Calcium Phosphorus ALT < 5 L Alkaline Phosphatase 143 H Total Creatine Kinase CK-MB (CK-2) Rel Index Troponin T Albumin 2.5 L LDL Cholesterol Direct PTH Intact Salicylates Acetaminophen Crossmatch 03/13/19 03/13/19 03/13/19 05:33 13:37 18:03 WBC RBC Hgb Hct MCH MCHC RDW Lymph % (Auto) [place] % (Auto) Eos % (Auto) Lymph # [place] # Eos # Seg Neutrophils % Seg Neuts % (Manual) Lymphocytes % (Manual) Eosinophils % (Manual) Seg Neutrophils # Lymphocytes # (Manual) Eosinophils # (Manual) PT INR D-Dimer POC ABG pH POC ABG pCO2 POC ABG pO2 ABG pO2 ABG HCO3 ABG Base Excess ABG Hemoglobin Oxyhemoglobin Sodium Potassium Chloride Carbon Dioxide BUN Creatinine Glucose POC Glucose 140 H 150 H 158 H Calcium Phosphorus ALT Alkaline Phosphatase Total Creatine Kinase CK-MB (CK-2) Rel Index Troponin T Albumin LDL Cholesterol Direct PTH Intact Salicylates Acetaminophen Crossmatch 03/13/19 03/14/19 03/14/19 23:32 05:24 12:20 WBC RBC Hgb Hct MCH MCHC RDW Lymph % (Auto) [place] % (Auto) Eos % (Auto) Lymph # [place] # Eos # Seg Neutrophils % Seg Neuts % (Manual) Lymphocytes % (Manual) Eosinophils % (Manual) Seg Neutrophils # Lymphocytes # (Manual) Eosinophils # (Manual) PT INR D-Dimer POC ABG pH POC ABG pCO2 POC ABG pO2 ABG pO2 ABG HCO3 ABG Base Excess ABG Hemoglobin Oxyhemoglobin Sodium Potassium Chloride Carbon Dioxide BUN Creatinine Glucose POC Glucose 162 H 146 H 127 H Calcium Phosphorus ALT Alkaline Phosphatase Total Creatine Kinase CK-MB (CK-2) Rel Index Troponin T Albumin LDL Cholesterol Direct PTH Intact Salicylates Acetaminophen Crossmatch 03/14/19 03/14/19 03/15/19 18:05 23:57 04:38 WBC 12.8 H RBC 3.11 L Hgb 8.1 L Hct 26.5 L MCH 26 L MCHC 31 L RDW 19.7 H Lymph % (Auto) 4.4 L [place] % (Auto) 7.4 H Eos % (Auto) Lymph # 0.6 L [place] # 0.9 H Eos # Seg Neutrophils % 87.3 H Seg Neuts % (Manual) Lymphocytes % (Manual) Eosinophils % (Manual) Seg Neutrophils # 11.2 H Lymphocytes # (Manual) Eosinophils # (Manual) PT INR D-Dimer POC ABG pH POC ABG pCO2 POC ABG pO2 ABG pO2 ABG HCO3 ABG Base Excess ABG Hemoglobin Oxyhemoglobin Sodium Potassium Chloride Carbon Dioxide BUN Creatinine Glucose POC Glucose 142 H 155 H Calcium Phosphorus ALT Alkaline Phosphatase Total Creatine Kinase CK-MB (CK-2) Rel Index Troponin T Albumin LDL Cholesterol Direct PTH Intact Salicylates Acetaminophen Crossmatch 03/15/19 03/15/19 03/15/19 04:38 05:31 11:32 WBC RBC Hgb Hct MCH MCHC RDW Lymph % (Auto) [place] % (Auto) Eos % (Auto) Lymph # [place] # Eos # Seg Neutrophils % Seg Neuts % (Manual) Lymphocytes % (Manual) Eosinophils % (Manual) Seg Neutrophils # Lymphocytes # (Manual) Eosinophils # (Manual) PT INR D-Dimer POC ABG pH POC ABG pCO2 POC ABG pO2 ABG pO2 ABG HCO3 ABG Base Excess ABG Hemoglobin Oxyhemoglobin Sodium 135 L Potassium Chloride 91.9 L Carbon Dioxide BUN 54 H Creatinine 2.8 H Glucose 128 H POC Glucose 160 H 109 H Calcium 11.1 H Phosphorus ALT Alkaline Phosphatase 161 H Total Creatine Kinase CK-MB (CK-2) Rel Index Troponin T Albumin 2.3 L LDL Cholesterol Direct PTH Intact Salicylates Acetaminophen Crossmatch 03/15/19 03/15/19 03/16/19 18:15 23:41 05:40 WBC RBC Hgb Hct MCH MCHC RDW Lymph % (Auto) [place] % (Auto) Eos % (Auto) Lymph # [place] # Eos # Seg Neutrophils % Seg Neuts % (Manual) Lymphocytes % (Manual) Eosinophils % (Manual) Seg Neutrophils # Lymphocytes # (Manual) Eosinophils # (Manual) PT INR D-Dimer POC ABG pH POC ABG pCO2 POC ABG pO2 ABG pO2 ABG HCO3 ABG Base Excess ABG Hemoglobin Oxyhemoglobin Sodium Potassium Chloride Carbon Dioxide BUN Creatinine Glucose POC Glucose 151 H 110 H 163 H Calcium Phosphorus ALT Alkaline Phosphatase Total Creatine Kinase CK-MB (CK-2) Rel Index Troponin T Albumin LDL Cholesterol Direct PTH Intact Salicylates Acetaminophen Crossmatch 03/16/19 03/16/19 03/16/19 11:55 17:04 23:58 WBC RBC Hgb Hct MCH MCHC RDW Lymph % (Auto) [place] % (Auto) Eos % (Auto) Lymph # [place] # Eos # Seg Neutrophils % Seg Neuts % (Manual) Lymphocytes % (Manual) Eosinophils % (Manual) Seg Neutrophils # Lymphocytes # (Manual) Eosinophils # (Manual) PT INR D-Dimer POC ABG pH POC ABG pCO2 POC ABG pO2 ABG pO2 ABG HCO3 ABG Base Excess ABG Hemoglobin Oxyhemoglobin Sodium Potassium Chloride Carbon Dioxide BUN Creatinine Glucose POC Glucose 114 H 147 H 192 H Calcium Phosphorus ALT Alkaline Phosphatase Total Creatine Kinase CK-MB (CK-2) Rel Index Troponin T Albumin LDL Cholesterol Direct PTH Intact Salicylates Acetaminophen Crossmatch 03/17/19 03/17/19 03/17/19 05:53 11:17 17:01 WBC RBC Hgb Hct MCH MCHC RDW Lymph % (Auto) [place] % (Auto) Eos % (Auto) Lymph # [place] # Eos # Seg Neutrophils % Seg Neuts % (Manual) Lymphocytes % (Manual) Eosinophils % (Manual) Seg Neutrophils # Lymphocytes # (Manual) Eosinophils # (Manual) PT INR D-Dimer POC ABG pH POC ABG pCO2 POC ABG pO2 ABG pO2 ABG HCO3 ABG Base Excess ABG Hemoglobin Oxyhemoglobin Sodium Potassium Chloride Carbon Dioxide BUN Creatinine Glucose POC Glucose 151 H 161 H 152 H Calcium Phosphorus ALT Alkaline Phosphatase Total Creatine Kinase CK-MB (CK-2) Rel Index Troponin T Albumin LDL Cholesterol Direct PTH Intact Salicylates Acetaminophen Crossmatch 03/17/19 03/18/19 03/18/19 21:47 04:15 04:44 WBC RBC Hgb Hct MCH MCHC RDW Lymph % (Auto) [place] % (Auto) Eos % (Auto) Lymph # [place] # Eos # Seg Neutrophils % Seg Neuts % (Manual) Lymphocytes % (Manual) Eosinophils % (Manual) Seg Neutrophils # Lymphocytes # (Manual) Eosinophils # (Manual) PT INR D-Dimer POC ABG pH POC ABG pCO2 POC ABG pO2 ABG pO2 102.8 H ABG HCO3 28.3 H ABG Base Excess ABG Hemoglobin 10.4 L Oxyhemoglobin 94.5 L Sodium Potassium Chloride Carbon Dioxide BUN Creatinine Glucose POC Glucose 170 H 150 H Calcium Phosphorus ALT Alkaline Phosphatase Total Creatine Kinase CK-MB (CK-2) Rel Index Troponin T Albumin LDL Cholesterol Direct PTH Intact Salicylates Acetaminophen Crossmatch 03/18/19 03/18/19 03/18/19 06:38 12:12 17:47 WBC RBC Hgb Hct MCH MCHC RDW Lymph % (Auto) [place] % (Auto) Eos % (Auto) Lymph # [place] # Eos # Seg Neutrophils % Seg Neuts % (Manual) Lymphocytes % (Manual) Eosinophils % (Manual) Seg Neutrophils # Lymphocytes # (Manual) Eosinophils # (Manual) PT INR D-Dimer POC ABG pH 7.510 H POC ABG pCO2 POC ABG pO2 164 H ABG pO2 ABG HCO3 ABG Base Excess ABG Hemoglobin Oxyhemoglobin Sodium Potassium Chloride Carbon Dioxide BUN Creatinine Glucose POC Glucose 145 H 149 H Calcium Phosphorus ALT Alkaline Phosphatase Total Creatine Kinase CK-MB (CK-2) Rel Index Troponin T Albumin LDL Cholesterol Direct PTH Intact Salicylates Acetaminophen Crossmatch 03/18/19 03/19/19 03/19/19 23:25 01:11 04:23 WBC 15.6 H RBC 2.51 L Hgb 6.5 L Hct 21.6 L MCH 26 L MCHC 30 L RDW 19.8 H Lymph % (Auto) 6.0 L [place] % (Auto) Eos % (Auto) Lymph # 0.9 L [place] # 1.0 H Eos # Seg Neutrophils % 85.5 H Seg Neuts % (Manual) Lymphocytes % (Manual) Eosinophils % (Manual) Seg Neutrophils # 13.4 H Lymphocytes # (Manual) Eosinophils # (Manual) PT INR D-Dimer POC ABG pH POC ABG pCO2 POC ABG pO2 ABG pO2 78.3 L ABG HCO3 30.7 H ABG Base Excess 5.8 H ABG Hemoglobin 5.8 L Oxyhemoglobin 94.6 L Sodium Potassium Chloride Carbon Dioxide BUN Creatinine Glucose POC Glucose 190 H Calcium Phosphorus ALT Alkaline Phosphatase Total Creatine Kinase CK-MB (CK-2) Rel Index Troponin T Albumin LDL Cholesterol Direct PTH Intact Salicylates Acetaminophen Crossmatch 03/19/19 03/19/19 03/19/19 05:22 05:35 08:54 WBC RBC Hgb Hct MCH MCHC RDW Lymph % (Auto) [place] % (Auto) Eos % (Auto) Lymph # [place] # Eos # Seg Neutrophils % Seg Neuts % (Manual) Lymphocytes % (Manual) Eosinophils % (Manual) Seg Neutrophils # Lymphocytes # (Manual) Eosinophils # (Manual) PT INR D-Dimer POC ABG pH POC ABG pCO2 POC ABG pO2 ABG pO2 ABG HCO3 ABG Base Excess ABG Hemoglobin Oxyhemoglobin Sodium Potassium Chloride Carbon Dioxide BUN Creatinine Glucose POC Glucose 167 H Calcium Phosphorus ALT Alkaline Phosphatase Total Creatine Kinase CK-MB (CK-2) Rel Index Troponin T Albumin LDL Cholesterol Direct PTH Intact Salicylates Acetaminophen Crossmatch See Detail See Detail 03/19/19 03/19/19 03/19/19 12:36 17:02 23:25 WBC RBC Hgb Hct MCH MCHC RDW Lymph % (Auto) [place] % (Auto) Eos % (Auto) Lymph # [place] # Eos # Seg Neutrophils % Seg Neuts % (Manual) Lymphocytes % (Manual) Eosinophils % (Manual) Seg Neutrophils # Lymphocytes # (Manual) Eosinophils # (Manual) PT INR D-Dimer POC ABG pH POC ABG pCO2 POC ABG pO2 ABG pO2 ABG HCO3 ABG Base Excess ABG Hemoglobin Oxyhemoglobin Sodium Potassium Chloride Carbon Dioxide BUN Creatinine Glucose POC Glucose 167 H 135 H 136 H Calcium Phosphorus ALT Alkaline Phosphatase Total Creatine Kinase CK-MB (CK-2) Rel Index Troponin T Albumin LDL Cholesterol Direct PTH Intact Salicylates Acetaminophen Crossmatch 03/20/19 03/20/19 03/20/19 05:38 08:40 08:40 WBC RBC 2.61 L Hgb 7.1 L Hct 22.0 L MCH 27 L MCHC RDW 19.6 H Lymph % (Auto) 8.2 L [place] % (Auto) 8.3 H Eos % (Auto) 5.7 H Lymph # 0.8 L [place] # Eos # 0.5 H Seg Neutrophils % 77.3 H Seg Neuts % (Manual) Lymphocytes % (Manual) Eosinophils % (Manual) Seg Neutrophils # Lymphocytes # (Manual) Eosinophils # (Manual) PT INR D-Dimer POC ABG pH POC ABG pCO2 POC ABG pO2 ABG pO2 ABG HCO3 ABG Base Excess ABG Hemoglobin Oxyhemoglobin Sodium Potassium Chloride 95.9 L Carbon Dioxide BUN 69 H Creatinine 2.8 H Glucose 115 H POC Glucose 134 H Calcium 10.5 H Phosphorus ALT Alkaline Phosphatase Total Creatine Kinase CK-MB (CK-2) Rel Index Troponin T Albumin LDL Cholesterol Direct PTH Intact Salicylates Acetaminophen Crossmatch 03/20/19 03/20/19 03/20/19 12:13 18:04 23:49 WBC RBC Hgb Hct MCH MCHC RDW Lymph % (Auto) [place] % (Auto) Eos % (Auto) Lymph # [place] # Eos # Seg Neutrophils % Seg Neuts % (Manual) Lymphocytes % (Manual) Eosinophils % (Manual) Seg Neutrophils # Lymphocytes # (Manual) Eosinophils # (Manual) PT INR D-Dimer POC ABG pH POC ABG pCO2 POC ABG pO2 ABG pO2 ABG HCO3 ABG Base Excess ABG Hemoglobin Oxyhemoglobin Sodium Potassium Chloride Carbon Dioxide BUN Creatinine Glucose POC Glucose 144 H 165 H 172 H Calcium Phosphorus ALT Alkaline Phosphatase Total Creatine Kinase CK-MB (CK-2) Rel Index Troponin T Albumin LDL Cholesterol Direct PTH Intact Salicylates Acetaminophen Crossmatch 03/21/19 03/21/19 03/21/19 05:00 06:29 06:30 WBC RBC 2.72 L Hgb 7.4 L Hct 22.9 L MCH 27 L MCHC RDW 19.4 H Lymph % (Auto) [place] % (Auto) Eos % (Auto) Lymph # [place] # Eos # Seg Neutrophils % Seg Neuts % (Manual) 81.0 H Lymphocytes % (Manual) 8.0 L Eosinophils % (Manual) 8.0 H Seg Neutrophils # Lymphocytes # (Manual) 0.7 L Eosinophils # (Manual) 0.7 H PT INR D-Dimer POC ABG pH POC ABG pCO2 POC ABG pO2 ABG pO2 ABG HCO3 ABG Base Excess ABG Hemoglobin Oxyhemoglobin Sodium Potassium Chloride Carbon Dioxide 33 H BUN 43 H Creatinine 1.7 H Glucose 145 H POC Glucose 156 H Calcium Phosphorus ALT Alkaline Phosphatase 212 H Total Creatine Kinase CK-MB (CK-2) Rel Index Troponin T Albumin 2.2 L LDL Cholesterol Direct PTH Intact Salicylates Acetaminophen Crossmatch 03/21/19 03/21/19 03/22/19 12:02 18:07 00:21 WBC RBC Hgb Hct MCH MCHC RDW Lymph % (Auto) [place] % (Auto) Eos % (Auto) Lymph # [place] # Eos # Seg Neutrophils % Seg Neuts % (Manual) Lymphocytes % (Manual) Eosinophils % (Manual) Seg Neutrophils # Lymphocytes # (Manual) Eosinophils # (Manual) PT INR D-Dimer POC ABG pH POC ABG pCO2 POC ABG pO2 ABG pO2 ABG HCO3 ABG Base Excess ABG Hemoglobin Oxyhemoglobin Sodium Potassium Chloride Carbon Dioxide BUN Creatinine Glucose POC Glucose 163 H 144 H 153 H Calcium Phosphorus ALT Alkaline Phosphatase Total Creatine Kinase CK-MB (CK-2) Rel Index Troponin T Albumin LDL Cholesterol Direct PTH Intact Salicylates Acetaminophen Crossmatch 03/22/19 03/22/19 03/22/19 05:23 05:23 05:31 WBC RBC 2.58 L Hgb 7.1 L Hct 21.8 L MCH 27 L MCHC RDW 19.2 H Lymph % (Auto) [place] % (Auto) Eos % (Auto) Lymph # [place] # Eos # Seg Neutrophils % Seg Neuts % (Manual) Lymphocytes % (Manual) Eosinophils % (Manual) Seg Neutrophils # Lymphocytes # (Manual) Eosinophils # (Manual) PT INR D-Dimer POC ABG pH POC ABG pCO2 POC ABG pO2 ABG pO2 ABG HCO3 ABG Base Excess ABG Hemoglobin Oxyhemoglobin Sodium 147 H Potassium Chloride Carbon Dioxide BUN 68 H Creatinine 2.5 H Glucose POC Glucose 116 H Calcium 10.3 H Phosphorus ALT Alkaline Phosphatase Total Creatine Kinase CK-MB (CK-2) Rel Index Troponin T Albumin LDL Cholesterol Direct PTH Intact Salicylates Acetaminophen Crossmatch 03/22/19 03/22/19 03/22/19 08:48 12:37 17:35 WBC RBC Hgb Hct MCH MCHC RDW Lymph % (Auto) [place] % (Auto) Eos % (Auto) Lymph # [place] # Eos # Seg Neutrophils % Seg Neuts % (Manual) Lymphocytes % (Manual) Eosinophils % (Manual) Seg Neutrophils # Lymphocytes # (Manual) Eosinophils # (Manual) PT INR D-Dimer POC ABG pH POC ABG pCO2 POC ABG pO2 ABG pO2 ABG HCO3 ABG Base Excess ABG Hemoglobin Oxyhemoglobin Sodium Potassium Chloride Carbon Dioxide BUN Creatinine Glucose POC Glucose 143 H 155 H Calcium Phosphorus ALT Alkaline Phosphatase Total Creatine Kinase CK-MB (CK-2) Rel Index Troponin T Albumin LDL Cholesterol Direct PTH Intact Salicylates Acetaminophen Crossmatch See Detail 03/23/19 03/23/19 03/23/19 00:07 04:00 04:00 WBC 11.2 H RBC 2.32 L Hgb 6.4 L Hct 19.7 L* MCH MCHC RDW 19.4 H Lymph % (Auto) [place] % (Auto) Eos % (Auto) Lymph # [place] # Eos # Seg Neutrophils % Seg Neuts % (Manual) Lymphocytes % (Manual) Eosinophils % (Manual) Seg Neutrophils # Lymphocytes # (Manual) Eosinophils # (Manual) PT INR D-Dimer POC ABG pH POC ABG pCO2 POC ABG pO2 ABG pO2 ABG HCO3 ABG Base Excess ABG Hemoglobin Oxyhemoglobin Sodium 147 H Potassium 5.2 H Chloride Carbon Dioxide BUN 86 H Creatinine 3.2 H Glucose 128 H POC Glucose 135 H Calcium 10.3 H Phosphorus ALT Alkaline Phosphatase Total Creatine Kinase CK-MB (CK-2) Rel Index Troponin T Albumin LDL Cholesterol Direct PTH Intact Salicylates Acetaminophen Crossmatch 03/23/19 03/23/19 03/23/19 05:21 11:36 11:36 WBC RBC Hgb 7.9 L Hct 25.0 L MCH MCHC RDW Lymph % (Auto) [place] % (Auto) Eos % (Auto) Lymph # [place] # Eos # Seg Neutrophils % Seg Neuts % (Manual) Lymphocytes % (Manual) Eosinophils % (Manual) Seg Neutrophils # Lymphocytes # (Manual) Eosinophils # (Manual) PT INR D-Dimer POC ABG pH POC ABG pCO2 POC ABG pO2 ABG pO2 ABG HCO3 ABG Base Excess ABG Hemoglobin Oxyhemoglobin Sodium Potassium Chloride Carbon Dioxide BUN Creatinine Glucose POC Glucose 132 H 147 H Calcium Phosphorus ALT Alkaline Phosphatase Total Creatine Kinase CK-MB (CK-2) Rel Index Troponin T Albumin LDL Cholesterol Direct PTH Intact Salicylates Acetaminophen Crossmatch 03/23/19 03/24/19 03/24/19 17:31 01:22 04:20 WBC 12.2 H RBC 3.05 L Hgb 8.3 L Hct 25.9 L MCH 27 L MCHC RDW 18.7 H Lymph % (Auto) [place] % (Auto) Eos % (Auto) Lymph # [place] # Eos # Seg Neutrophils % Seg Neuts % (Manual) Lymphocytes % (Manual) Eosinophils % (Manual) Seg Neutrophils # Lymphocytes # (Manual) Eosinophils # (Manual) PT INR D-Dimer POC ABG pH POC ABG pCO2 POC ABG pO2 ABG pO2 ABG HCO3 ABG Base Excess ABG Hemoglobin Oxyhemoglobin Sodium Potassium Chloride Carbon Dioxide BUN Creatinine Glucose POC Glucose 182 H 113 H Calcium Phosphorus ALT Alkaline Phosphatase Total Creatine Kinase CK-MB (CK-2) Rel Index Troponin T Albumin LDL Cholesterol Direct PTH Intact Salicylates Acetaminophen Crossmatch 03/24/19 03/24/19 03/24/19 04:20 11:59 18:14 WBC RBC Hgb Hct MCH MCHC RDW Lymph % (Auto) [place] % (Auto) Eos % (Auto) Lymph # [place] # Eos # Seg Neutrophils % Seg Neuts % (Manual) Lymphocytes % (Manual) Eosinophils % (Manual) Seg Neutrophils # Lymphocytes # (Manual) Eosinophils # (Manual) PT INR D-Dimer POC ABG pH POC ABG pCO2 POC ABG pO2 ABG pO2 ABG HCO3 ABG Base Excess ABG Hemoglobin Oxyhemoglobin Sodium Potassium Chloride 94.8 L Carbon Dioxide 32 H BUN 53 H Creatinine 2.3 H Glucose POC Glucose 163 H 134 H Calcium Phosphorus ALT Alkaline Phosphatase Total Creatine Kinase CK-MB (CK-2) Rel Index Troponin T Albumin LDL Cholesterol Direct PTH Intact Salicylates Acetaminophen Crossmatch 03/24/19 03/25/19 03/25/19 23:15 05:52 12:02 WBC RBC Hgb Hct MCH MCHC RDW Lymph % (Auto) [place] % (Auto) Eos % (Auto) Lymph # [place] # Eos # Seg Neutrophils % Seg Neuts % (Manual) Lymphocytes % (Manual) Eosinophils % (Manual) Seg Neutrophils # Lymphocytes # (Manual) Eosinophils # (Manual) PT INR D-Dimer POC ABG pH POC ABG pCO2 POC ABG pO2 ABG pO2 ABG HCO3 ABG Base Excess ABG Hemoglobin Oxyhemoglobin Sodium Potassium Chloride Carbon Dioxide BUN Creatinine Glucose POC Glucose 129 H 123 H 125 H Calcium Phosphorus ALT Alkaline Phosphatase Total Creatine Kinase CK-MB (CK-2) Rel Index Troponin T Albumin LDL Cholesterol Direct PTH Intact Salicylates Acetaminophen Crossmatch 03/25/19 03/26/19 03/26/19 17:27 00:30 05:35 WBC RBC 3.01 L Hgb 8.1 L Hct 25.7 L MCH 27 L MCHC RDW 19.2 H Lymph % (Auto) 11.4 L [place] % (Auto) Eos % (Auto) 8.0 H Lymph # 1.0 L [place] # Eos # 0.7 H Seg Neutrophils % 73.9 H Seg Neuts % (Manual) Lymphocytes % (Manual) Eosinophils % (Manual) Seg Neutrophils # Lymphocytes # (Manual) Eosinophils # (Manual) PT INR D-Dimer POC ABG pH POC ABG pCO2 POC ABG pO2 ABG pO2 ABG HCO3 ABG Base Excess ABG Hemoglobin Oxyhemoglobin Sodium Potassium Chloride Carbon Dioxide BUN Creatinine Glucose POC Glucose 130 H 129 H Calcium Phosphorus ALT Alkaline Phosphatase Total Creatine Kinase CK-MB (CK-2) Rel Index Troponin T Albumin LDL Cholesterol Direct PTH Intact Salicylates Acetaminophen Crossmatch 03/26/19 03/26/19 05:35 05:45 WBC RBC Hgb Hct MCH MCHC RDW Lymph % (Auto) [place] % (Auto) Eos % (Auto) Lymph # [place] # Eos # Seg Neutrophils % Seg Neuts % (Manual) Lymphocytes % (Manual) Eosinophils % (Manual) Seg Neutrophils # Lymphocytes # (Manual) Eosinophils # (Manual) PT INR D-Dimer POC ABG pH POC ABG pCO2 POC ABG pO2 ABG pO2 ABG HCO3 ABG Base Excess ABG Hemoglobin Oxyhemoglobin Sodium Potassium Chloride 94.9 L Carbon Dioxide 31 H BUN 44 H Creatinine 2.0 H Glucose POC Glucose 118 H Calcium Phosphorus ALT Alkaline Phosphatase Total Creatine Kinase CK-MB (CK-2) Rel Index Troponin T Albumin LDL Cholesterol Direct PTH Intact Salicylates Acetaminophen Crossmatch Chest x-ray: report reviewed, image reviewed
[2019-03-26] MEDS ORDERED: SODIUM BICARBONATE 325 MG TAB FEEDTUBE PRN (13:45)
[2019-03-26] MEDS ORDERED: SIMPLE SYRUP 15 ML FEEDTUBE PRN ×2 (13:45)
[2019-03-26] MEDS ORDERED: LIPASE 10,500/PROTEASE 25,000/AMYLASE 43,750 (UNITS) DR CAP FEEDTUBE PRN (13:45)
--- NOTE | 2019-03-26 17:34 | Progress Note ---
Assessment and Plan Assessment and plan: Acute respiratory failure on mechanical ventilator >96 hrs Extubated ; history of tracheostomy on T piece Current management , nebulizers, Currently on trach/peg placed on 03/03. Now off vent, cont oxygen supplement, improving, on t piece, nebulizers, pulmonary critical following acute on chronic systolic CHF/ Acute pulmonary edema, HD per schedule Dilated CMP, EF 35-40% Continue diuresis, supportive care Acute metabolic encephalopathy, resolved, has baseline Dementia. --ESRD on hemodialysis per schedule nephrology following --Bilateral pleural effusions improved with HD --Permanent atrial fibrillation and flutter and hypercoaguable state Not on anticoagulation because of anemia thrombocytopenia rate control meds optimized --Diabetes mellitus type 2 Accu-Chek sliding scale coverage Insulin as needed --NSTEMI type 2 , Cardiology following --Schizophrenia:stable --Legally blind, supportive care --hypertension, Monitor BP,'s adjust medications as needed --Hypokalemia; corrected --Pulmonary hypertension; continue current management --Dysphagia s/p PEG tube; PEG tubes per protocol --Sacral decub ulcer; Wound care --Severe malnutrition /hypoalbuminemia with FTT: 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, 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 inpatient hospice was recommended, but family is not agreeable at this time. family meeting and ethic consult as needed The high probability of a clinically significant, sudden or life threatening deterioration of the [pulmonary, neuro, renal] system(s) required my full and direct attention, intervention and personal management. The aggregate critical care time was [32] minutes. This time is in addition to time spent performing reported procedures but includes the following: [x] Data Review and interpretation [x] Patient assessment and monitoring of vital signs [x] Documentation [x] Medication orders and management History Interval history: Patient is 63-year-old -[place] male patient from [facility] with multiple co-morbidities including blindness, CVA, CHF, PPM/ICD, loop recorder since 2012 that is MRI compatible, IDDM type 2, sepsis left foot ulcer, afib, ESRD with complications on HD TTS, hypertension, AOCD and GERD who presented to the ED with hypotensive after intubation in the emergency room. diagnosed with fluid overload, pleural effusion. Patient has had recurrent admission in the hospital for similar reason and was recently discharged from the hospital following treatment of Severe Sepsis due to Necrotizing Unstagable sacral decubitus ulcer with ostemomylitis, has received multiple courses of broad spectrum abx. Acute hypoxic respiratory failure, status post intubation and ventilatory support, now off vent, on T-piece Hospitalist Physical - Constitutional Vitals: Temp Pulse Resp BP Pulse Ox 97.6 F 102 H 16 101/58 100 03/26/19 15:57 03/26/19 16:00 03/26/19 16:00 03/26/19 16:00 03/26/19 16:00 General appearance: Present: no acute distress, well-nourished, other (tracheostomy on T piece) - EENT Eyes: Present: PERRL, EOM intact ENT: hearing intact, clear oral mucosa, dentition normal - Neck Neck: Present: supple, normal ROM - Respiratory Respiratory effort: normal Respiratory: bilateral: CTA - Cardiovascular Rhythm: regular Heart Sounds: Present: S1 & S2. Absent: gallop, rub - Extremities Extremities: no ischemia, No edema, Full ROM - Abdominal General gastrointestinal: soft, non-tender, non-distended, normal bowel sounds - Integumentary Integumentary: Present: clear, warm, dry - Neurologic Neurologic: CNII-XII intact, moves all extremities Results - Labs CBC & Chem 7: 03/26/19 05:35 03/26/19 05:35 Labs: Laboratory Last Values WBC 8.8 K/mm3 (4.5-11.0) 03/26/19 05:35 RBC 3.01 M/mm3 (3.65-5.03) L 03/26/19 05:35 Hgb 8.1 gm/dl (11.8-15.2) L 03/26/19 05:35 Hct 25.7 % (35.5-45.6) L 03/26/19 05:35 MCV 85 fl (84-94) 03/26/19 05:35 MCH 27 pg (28-32) L 03/26/19 05:35 MCHC 32 % (32-34) 03/26/19 05:35 RDW 19.2 % (13.2-15.2) H 03/26/19 05:35 Plt Count 352 K/mm3 (140-440) 03/26/19 05:35 Lymph % (Auto) 11.4 % (13.4-35.0) L 03/26/19 05:35 [place] % (Auto) 5.9 % (0.0-7.3) 03/26/19 05:35 Eos % (Auto) 8.0 % (0.0-4.3) H 03/26/19 05:35 Baso % (Auto) 0.8 % (0.0-1.8) 03/26/19 05:35 Lymph # 1.0 K/mm3 (1.2-5.4) L 03/26/19 05:35 [place] # 0.5 K/mm3 (0.0-0.8) 03/26/19 05:35 Eos # 0.7 K/mm3 (0.0-0.4) H 03/26/19 05:35 Baso # 0.1 K/mm3 (0.0-0.1) 03/26/19 05:35 Add Manual Diff Complete 03/21/19 06:30 Total Counted 100 03/21/19 06:30 Seg Neutrophils % 73.9 % (40.0-70.0) H 03/26/19 05:35 Seg Neuts % (Manual) 81.0 % (40.0-70.0) H 03/21/19 06:30 0 % 03/21/19 06:30 8.0 % (13.4-35.0) L 03/21/19 06:30 Reactive Lymphs % (Man) 0 % 03/21/19 06:30 1.0 % (0.0-7.3) 03/21/19 06:30 8.0 % (0.0-4.3) H 03/21/19 06:30 1.0 % (0.0-1.8) 03/21/19 06:30 1.0 % 03/21/19 06:30 0 % 03/21/19 06:30 0 % 03/21/19 06:30 0 % 03/21/19 06:30 Nucleated RBC % Not Reportable 03/21/19 06:30 Seg Neutrophils # 6.5 K/mm3 (1.8-7.7) 03/26/19 05:35 Seg Neutrophils # Man 6.7 K/mm3 (1.8-7.7) 03/21/19 06:30 Band Neutrophils # 0.0 K/mm3 03/21/19 06:30 0.7 K/mm3 (1.2-5.4) L 03/21/19 06:30 Abs React Lymphs (Man) 0.0 K/mm3 03/21/19 06:30 0.1 K/mm3 (0.0-0.8) 03/21/19 06:30 0.7 K/mm3 (0.0-0.4) H 03/21/19 06:30 0.1 K/mm3 (0.0-0.1) 03/21/19 06:30 0.1 K/mm3 03/21/19 06:30 0.0 K/mm3 03/21/19 06:30 0.0 K/mm3 03/21/19 06:30 Blast Cells # 0.0 K/mm3 03/21/19 06:30 WBC Morphology Not Reportable 03/21/19 06:30 Hypersegmented Neuts Not Reportable 03/21/19 06:30 Hyposegmented Neuts Not Reportable 03/21/19 06:30 Hypogranular Neuts Not Reportable 03/21/19 06:30 Not Reportable 03/21/19 06:30 Not Reportable 03/21/19 06:30 Not Reportable 03/21/19 06:30 Not Reportable 03/21/19 06:30 Not Reportable 03/21/19 06:30 Not Reportable 03/21/19 06:30 Consistent w auto 03/21/19 06:30 Not Reportable 03/21/19 06:30 Plt Clumps, EDTA Not Reportable 03/21/19 06:30 Not Reportable 03/21/19 06:30 Not Reportable 03/21/19 06:30 Not Reportable 03/21/19 06:30 Plt Morphology Comment Not Reportable 03/21/19 06:30 RBC Morphology Not Reportable 03/21/19 06:30 Dimorphic RBCs Not Reportable 03/21/19 06:30 Not Reportable 03/21/19 06:30 Few 03/21/19 06:30 Few 03/21/19 06:30 Few 03/21/19 06:30 Not Reportable 03/21/19 06:30 Not Reportable 03/21/19 06:30 Not Reportable 03/21/19 06:30 Not Reportable 03/21/19 06:30 Not Reportable 03/21/19 06:30 1+ 03/21/19 06:30 Not Reportable 03/21/19 06:30 Few 03/21/19 06:30 Not Reportable 03/21/19 06:30 Not Reportable 03/21/19 06:30 Not Reportable 03/21/19 06:30 Not Reportable 03/21/19 06:30 Not Reportable 03/21/19 06:30 Not Reportable 03/21/19 06:30 Not Reportable 03/21/19 06:30 Acanthocytes (Spur) Not Reportable 03/21/19 06:30 Rouleaux Not Reportable 03/21/19 06:30 Not Reportable 03/21/19 06:30 Not Reportable 03/21/19 06:30 Not Reportable 03/21/19 06:30 Not Reportable 03/21/19 06:30 Hem Pathologist Commnt No 03/21/19 06:30 PT 16.3 Sec. (12.2-14.9) H 03/01/19 09:39 INR 1.35 (0.87-1.13) H 03/01/19 09:39 APTT 33.7 Sec. (24.2-36.6) 02/21/19 18:30 2987.82 ng/mlDDU (0-234) H 02/22/19 05:54 POC ABG pH 7.510 (7.35-7.45) H 03/18/19 06:38 ABG pH 7.424 pH Units (7.350-7.450) 03/19/19 04:23 POC ABG pCO2 38.9 (35-45) 03/18/19 06:38 ABG pCO2 48.0 mm Hg 03/19/19 04:23 POC ABG pO2 164 (80-105) H 03/18/19 06:38 ABG pO2 78.3 mm Hg (80.0-90.0) L 03/19/19 04:23 POC ABG HCO3 31.0 (22-26 mml/L) 03/18/19 06:38 ABG HCO3 30.7 mmol/L (20.0-26.0) H 03/19/19 04:23 POC ABG Total CO2 32 (23-27mmol/L) 03/18/19 06:38 POC ABG O2 Sat 100 03/18/19 06:38 ABG O2 Saturation 97.0 % (95.0-99.0) 03/19/19 04:23 ABG O2 Content 7.9 (0.0-44) 03/19/19 04:23 POC ABG Base Excess 8 ((-2) - (+3)mmol/L) 03/18/19 06:38 ABG Base Excess 5.8 mmol/L (-2.0-3.0) H 03/19/19 04:23 ABG Hemoglobin 5.8 gm/dl (14.0-18.0) L 03/19/19 04:23 ABG Carboxyhemoglobin 2.0 % (0.0-5.0) 03/19/19 04:23 ABG Methemoglobin 0.4 % (0.0-1.5) 03/19/19 04:23 94.6 % (95.0-99.0) L 03/19/19 04:23 35 % 03/19/19 04:23 Sodium 139 mmol/L (137-145) 03/26/19 05:35 Potassium 4.6 mmol/L (3.6-5.0) 03/26/19 05:35 Chloride 94.9 mmol/L (98-107) L 03/26/19 05:35 Carbon Dioxide 31 mmol/L (22-30) H 03/26/19 05:35 18 mmol/L 03/26/19 05:35 BUN 44 mg/dL (9-20) H 03/26/19 05:35 2.0 mg/dL (0.8-1.5) H 03/26/19 05:35 Estimated GFR 41 ml/min 03/26/19 05:35 22 % 03/26/19 05:35 Glucose 96 mg/dL (75-100) 03/26/19 05:35 POC Glucose 107 (70-105) H 03/26/19 12:16 Lactic Acid 1.00 mmol/L (0.7-2.0) 02/21/19 20:58 Calcium 10.1 mg/dL (8.4-10.2) 03/26/19 05:35 Phosphorus 3.10 mg/dL (2.5-4.5) 03/15/19 04:38 Magnesium 2.00 mg/dL (1.7-2.3) 03/21/19 05:00 0.30 mg/dL (0.1-1.2) 03/21/19 05:00 AST 23 units/L (5-40) 03/21/19 05:00 ALT 18 units/L (7-56) 03/21/19 05:00 212 units/L (35-129) H 03/21/19 05:00 28.0 umol/L (25-60) 02/21/19 20:04 64 units/L (55-170) 02/22/19 03:42 CK-MB (CK-2) 3.7 ng/mL (0.0-4.0) 02/22/19 03:42 CK-MB (CK-2) Rel Index 5.7 (0-4) H 02/22/19 03:42 0.193 ng/mL (0.00-0.029) H* 02/22/19 03:42 6.7 g/dL (6.3-8.2) 03/21/19 05:00 2.2 g/dL (3.9-5) L 03/21/19 05:00 0.5 % 03/21/19 05:00 Triglycerides 51 mg/dL (2-149) 02/21/19 18:30 Cholesterol 82 mg/dL (50-199) 02/21/19 18:30 36 mg/dL (50-130) L 02/21/19 18:30 40 mg/dL (40-59) 02/21/19 18:30 2.05 % 02/21/19 18:30 TSH 2.760 mlU/mL (0.270-4.200) 02/21/19 20:04 PTH Intact 267.6 pg/mL (15-65) H 03/02/19 05:15 Salicylates < 0.3 mg/dL (2.8-20.0) L 02/21/19 20:04 Acetaminophen < 5.0 ug/mL (10.0-30.0) L 02/21/19 20:04 Hepatitis A IgM Ab Non-reactive (NonReactive) 02/23/19 11:20 Hep Bs Antigen Non-reactive (Negative) 02/23/19 11:20 Hep B Core IgM Ab Non-reactive (NonReactive) 02/23/19 11:20 Non-reactive (NonReactive) 02/23/19 11:20 Blood Type O POSITIVE 03/22/19 08:48 Antibody Screen Negative 03/22/19 08:48 Crossmatch See Detail 03/22/19 08:48 Active Medications - Current Medications Current Medications: Generic Name Dose Route Start Last Admin Trade Name Freq PRN Reason Stop Dose Admin Albuterol/Ipratropium 1 ampul 02/24/19 20:00 03/26/19 13:46 Duoneb *Not For Prn Use* IH 1 ampul TIDRT SANCHEZ Administration Lipase/Protease/Amylase 1 each 03/05/19 14:04 Pancreazkaren Barrientos 10,500 Unit FEEDTUBE PRN PRN For Clogged Feeding Tube Epoetin Solitario 20,000 unit 03/24/19 11:17 Procrit IV UMA PRN hemodialysis Famotidine 20 mg 02/23/19 10:00 03/26/19 09:08 Pepcid PO 20 mg DAILY SANCHEZ Administration Heparin Sodium (Porcine) 5,000 unit 03/04/19 22:00 03/26/19 09:08 Heparin SUB-Q 5,000 unit Q12HR SANCHEZ Administration Hydrophilic Ointment 1 applic 02/21/19 18:24 03/05/19 08:16 Vaseline Lip Therapy TP 1 applic Q2HR PRN Administration Dry Lips Sodium Chloride 100 mls @ 999 mls/hr 02/26/19 09:00 Nacl 0.9% IV UMA PRN Hypotension Norepinephrine 8 mg/ Sodium 250 mls @ 3.75 mls/hr 03/18/19 13:00 03/19/19 09:17 Chloride IV 0 mcg/min TITR SANCHEZ 0 mls/hr Titration Protocol 2 MCG/MIN Insulin Human Regular 0 units 02/26/19 12:00 03/26/19 12:35 Humulin R SUB-Q Not Given Q6HR SANCHEZ Protocol Metoprolol Tartrate 2.5 mg 02/28/19 12:06 03/15/19 05:15 Lopressor IV 2.5 mg Q4HR PRN Administration Tachycardia Multi-Ingred Cream/Lotion/Oil/Oint 1 applic 02/21/19 18:24 Artificial Tears Ophth Oint OU Q4HR PRN Dry Eye(s) Risperidone 1 mg 02/25/19 13:00 03/26/19 09:08 Risperdal PO 1 mg DAILY SANCHEZ Administration Scopolamine 1 each 03/13/19 04:00 03/25/19 03:54 Transderm-Scop TD 1 each Q3D SANCHEZ Administration Sertraline HCl 100 mg 02/25/19 13:00 03/26/19 09:08 Zoloft PO 100 mg DAILY SANCHEZ Administration Simple Syrup 15 ml 03/05/19 14:04 Simple Syrup FEEDTUBE PRN PRN Hypoglycemia Simple Syrup 30 ml 03/05/19 14:04 Simple Syrup FEEDTUBE PRN PRN Hypoglycemia Sodium Bicarbonate 325 mg 03/05/19 14:04 Sodium Bicarbonate FEEDTUBE PRN PRN For Clogged Feeding Tube Tramadol HCl 50 mg 03/05/19 10:08 03/18/19 04:38 Ultram PO 50 mg Q6H PRN Administration Pain, Moderate (4-6) Trimethoprim/Sulfamethoxazole 160 mg 03/19/19 15:00 03/26/19 09:08 Bactrim 200-40 Mg/5 Ml PO 03/28/19 23:59 160 mg Q24HR SANCHEZ Administration Nutrition/Malnutrition Assess - Dietary Evaluation Nutrition/Malnutrition Findings: Nutrition Notes Start: 02/22/19 12:51 Freq: Status: Active Protocol: Document 03/26/19 11:24 LM (Rec: 03/26/19 11:51 LM [email or web address]) Nutrition Notes Initial or Follow up Reassessment Current Diagnosis Diabetes,Hypertension Other Pertinent Diagnosis Sacral PU, ESRD on HD (T/Thurs /Sat), Schizophrenia,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 Weight obtained from bedscale by RN today. Weight change possibly from edema. Subjective/Other Information TF running at 70 ml/hr and pt is tolerating TF. Percent of energy/protein needs met: 100%/100% Burn Absent Trauma Absent #2 Nutrition Diagnosis Increased nutrient needs ( specify in comment below) Diagnosis Progress(for reassessment Continues documentation) #1 Nutrition Diagnosis Inadequate oral intake Diagnosis Progress(for reassessment Continues documentation) Is patient on ventilator? No Is Patient Ambulatory and/or Out of Bed No REE-([facility]-confined to bed) 1857.144 Kcal/Kg value to use for calculation 30 Approximate Energy Requirements Using 2241 kcal/Kg Calculation Used for Recommendations Kcal/kg Additional Notes Protein Needs: 90-112g (1.2-1. 5g/kg) Fluid Needs: 1-1.5 L/day Nutrition Intervention Change Diet Order: Continue TF Nutrition Support: Change to Nepro with Carbsteady 1.8 at 50 ml/hr Flush 200 ml q4hr Kcal 2,160 Protein (gm) 97 Fluid (mL) 872 Add Supplement/Snack (indicate name/kcal Abhilash BID /protein ) Provides kCal: 190 Provides Protein (gm) 5 Goal #1 TF tolerance Goal #2 Continue to meet at least 80% of calorie and protein needs via TF Anticipated Discharge Needs: TF Follow-Up By: 03/27/19 Additional Comments F/U for new TF rate/tolerance, weight
[2019-03-27] MEDS: INSULIN REGULAR, HUMAN 100 UNITS/1 ML SUB-Q SCH ×4 (06:26→17:53)
[2019-03-27] MEDS: IPRATROPIUM/ALBUTEROL SULFATE 3 ML AMPUL.NEB IH SCH ×3 (08:30→22:13)
[2019-03-27] MEDS: SERTRALINE 100 MG TAB PO SCH (09:26)
[2019-03-27] MEDS: risperiDONE 1 MG TAB PO SCH (09:26)
[2019-03-27] MEDS: SULFAMETHOXAZOLE/TRIMETHOPRIM 200-40 MG/5 ML ORAL LIQD 30 ML PO SCH (09:26)
[2019-03-27] MEDS: FAMOTIDINE 20 MG TAB PO SCH (09:26)
[2019-03-27] MEDS: HEPARIN 5,000 UNIT/1 ML VIAL SUB-Q SCH ×2 (09:30→21:34)
--- NOTE | 2019-03-27 10:24 | Progress Note ---
Assessment and Plan 63 y/o male with multiple medical issues admitted with altered mental status, acute respiratory failure requiring mechanical ventilation 1. 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 Continue T-piece 3. HD per renal 4. Awaiting placement. Subjective Date of service: 03/27/19 Principal diagnosis: respiratory failure Interval history: No acute events. Pulm status is unchanged remains on T-piece. Objective Vital Signs - 12hr 03/26/19 03/27/19 03/27/19 23:00 00:00 01:00 Temperature 97.4 F L Pulse Rate 92 H 95 H 97 H Pulse Rate [ 113 H Brachial] Pulse Rate [ From Monitor] Respiratory 17 18 17 Rate Blood Pressure 108/62 97/53 110/62 O2 Sat by Pulse 100 100 100 Oximetry 03/27/19 03/27/19 03/27/19 02:00 03:00 04:00 Temperature 97 F L Pulse Rate 95 H 95 H 93 H Pulse Rate [ 113 H Brachial] Pulse Rate [ From Monitor] Respiratory 14 22 16 Rate Blood Pressure 103/61 103/67 100/56 O2 Sat by Pulse 100 98 100 Oximetry 03/27/19 03/27/19 03/27/19 05:00 06:00 07:00 Temperature Pulse Rate 99 H 101 H 108 H Pulse Rate [ Brachial] Pulse Rate [ From Monitor] Respiratory 21 16 22 Rate Blood Pressure 104/60 109/65 110/69 O2 Sat by Pulse 100 99 98 Oximetry 03/27/19 03/27/19 03/27/19 07:36 08:00 09:00 Temperature 98.5 F Pulse Rate 106 H 116 H Pulse Rate [ Brachial] Pulse Rate [ 106 H From Monitor] Respiratory 17 20 Rate Blood Pressure 120/72 130/70 O2 Sat by Pulse 100 99 Oximetry Constitutional: no acute distress, alert Eyes: non-icteric ENT: oropharynx moist Neck: supple Effort: normal Ascultation: Bilateral: diminished breath sounds, other (coarse BS bilaterally) Percussion: Bilateral: not dull Cardiovascular: other (tachy, RR; no mrg) Gastrointestinal: normoactive bowel sounds, soft, non-tender, non-distended, other (ostomy in place, brown stool) Extremities: no cyanosis, no edema, pink and warm Neurologic: other (mild weakness LUE, o/w nonfocal) Psychiatric: other (unable to assess) CBC and BMP: 03/26/19 05:35 03/26/19 05:35 ABG, PT/INR, D-dimer: ABG POC ABG pH 7.510 (7.35-7.45) H 03/18/19 06:38 ABG pH 7.424 pH Units (7.350-7.450) 03/19/19 04:23 POC ABG pCO2 38.9 (35-45) 03/18/19 06:38 ABG pCO2 48.0 mm Hg 03/19/19 04:23 POC ABG pO2 164 (80-105) H 03/18/19 06:38 ABG pO2 78.3 mm Hg (80.0-90.0) L 03/19/19 04:23 POC ABG HCO3 31.0 (22-26 mml/L) 03/18/19 06:38 POC ABG Total CO2 32 (23-27mmol/L) 03/18/19 06:38 POC ABG O2 Sat 100 03/18/19 06:38 ABG O2 Saturation 97.0 % (95.0-99.0) 03/19/19 04:23 PT/INR, D-dimer PT 16.3 Sec. (12.2-14.9) H 03/01/19 09:39 INR 1.35 (0.87-1.13) H 03/01/19 09:39 2987.82 ng/mlDDU (0-234) H 02/22/19 05:54 Abnormal lab findings: Abnormal Labs 02/21/19 02/21/19 02/21/19 18:30 18:30 18:30 WBC RBC 3.26 L Hgb 8.8 L Hct 29.0 L MCH 27 L MCHC 30 L RDW 19.1 H Lymph % (Auto) 6.1 L [place] % (Auto) Eos % (Auto) Lymph # 0.4 L [place] # Eos # Seg Neutrophils % 86.2 H Seg Neuts % (Manual) Lymphocytes % (Manual) Eosinophils % (Manual) Seg Neutrophils # Lymphocytes # (Manual) Eosinophils # (Manual) PT INR D-Dimer POC ABG pH POC ABG pCO2 POC ABG pO2 ABG pO2 ABG HCO3 ABG Base Excess ABG Hemoglobin Oxyhemoglobin Sodium 133 L Potassium 3.3 L Chloride 93.1 L Carbon Dioxide 33 H BUN Creatinine Glucose 161 H POC Glucose Calcium Phosphorus ALT Alkaline Phosphatase 136 H Total Creatine Kinase 37 L CK-MB (CK-2) Rel Index Troponin T 0.192 H* Albumin 2.4 L LDL Cholesterol Direct 36 L PTH Intact Salicylates Acetaminophen Crossmatch 02/21/19 02/21/19 02/21/19 18:42 20:04 20:04 WBC RBC Hgb Hct MCH MCHC RDW Lymph % (Auto) [place] % (Auto) Eos % (Auto) Lymph # [place] # Eos # Seg Neutrophils % Seg Neuts % (Manual) Lymphocytes % (Manual) Eosinophils % (Manual) Seg Neutrophils # Lymphocytes # (Manual) Eosinophils # (Manual) PT INR D-Dimer POC ABG pH POC ABG pCO2 56.7 H POC ABG pO2 291 H ABG pO2 ABG HCO3 ABG Base Excess ABG Hemoglobin Oxyhemoglobin Sodium Potassium Chloride Carbon Dioxide BUN Creatinine Glucose POC Glucose Calcium Phosphorus ALT Alkaline Phosphatase Total Creatine Kinase CK-MB (CK-2) Rel Index Troponin T Albumin LDL Cholesterol Direct PTH Intact Salicylates < 0.3 L Acetaminophen < 5.0 L Crossmatch 02/21/19 02/22/19 02/22/19 22:35 03:42 03:42 WBC RBC 3.20 L Hgb 8.8 L Hct 27.6 L MCH MCHC RDW 18.9 H Lymph % (Auto) 7.4 L [place] % (Auto) Eos % (Auto) Lymph # 0.7 L [place] # Eos # Seg Neutrophils % 84.7 H Seg Neuts % (Manual) Lymphocytes % (Manual) Eosinophils % (Manual) Seg Neutrophils # Lymphocytes # (Manual) Eosinophils # (Manual) PT INR D-Dimer POC ABG pH POC ABG pCO2 POC ABG pO2 ABG pO2 ABG HCO3 ABG Base Excess ABG Hemoglobin Oxyhemoglobin Sodium 134 L Potassium 2.6 L* D Chloride Carbon Dioxide BUN Creatinine Glucose POC Glucose Calcium Phosphorus ALT Alkaline Phosphatase Total Creatine Kinase CK-MB (CK-2) Rel Index 5.2 H Troponin T 0.202 H* Albumin LDL Cholesterol Direct PTH Intact Salicylates Acetaminophen Crossmatch 02/22/19 02/22/19 02/22/19 03:42 05:54 09:04 WBC RBC Hgb Hct MCH MCHC RDW Lymph % (Auto) [place] % (Auto) Eos % (Auto) Lymph # [place] # Eos # Seg Neutrophils % Seg Neuts % (Manual) Lymphocytes % (Manual) Eosinophils % (Manual) Seg Neutrophils # Lymphocytes # (Manual) Eosinophils # (Manual) PT INR D-Dimer 2987.82 H POC ABG pH 7.451 H POC ABG pCO2 POC ABG pO2 ABG pO2 ABG HCO3 ABG Base Excess ABG Hemoglobin Oxyhemoglobin Sodium Potassium Chloride Carbon Dioxide BUN Creatinine Glucose POC Glucose Calcium Phosphorus ALT Alkaline Phosphatase Total Creatine Kinase CK-MB (CK-2) Rel Index 5.7 H Troponin T 0.193 H* Albumin LDL Cholesterol Direct PTH Intact Salicylates Acetaminophen Crossmatch 02/22/19 02/22/19 02/23/19 10:36 23:56 00:52 WBC RBC Hgb Hct MCH MCHC RDW Lymph % (Auto) [place] % (Auto) Eos % (Auto) Lymph # [place] # Eos # Seg Neutrophils % Seg Neuts % (Manual) Lymphocytes % (Manual) Eosinophils % (Manual) Seg Neutrophils # Lymphocytes # (Manual) Eosinophils # (Manual) PT INR D-Dimer POC ABG pH POC ABG pCO2 POC ABG pO2 ABG pO2 ABG HCO3 ABG Base Excess ABG Hemoglobin Oxyhemoglobin Sodium Potassium 3.1 L Chloride Carbon Dioxide BUN Creatinine Glucose POC Glucose 58 L 111 H Calcium Phosphorus ALT Alkaline Phosphatase Total Creatine Kinase CK-MB (CK-2) Rel Index Troponin T Albumin LDL Cholesterol Direct PTH Intact Salicylates Acetaminophen Crossmatch 02/23/19 02/23/19 02/23/19 05:00 06:35 14:26 WBC RBC Hgb Hct MCH MCHC RDW Lymph % (Auto) [place] % (Auto) Eos % (Auto) Lymph # [place] # Eos # Seg Neutrophils % Seg Neuts % (Manual) Lymphocytes % (Manual) Eosinophils % (Manual) Seg Neutrophils # Lymphocytes # (Manual) Eosinophils # (Manual) PT INR D-Dimer POC ABG pH POC ABG pCO2 POC ABG pO2 ABG pO2 ABG HCO3 ABG Base Excess ABG Hemoglobin Oxyhemoglobin Sodium 135 L Potassium 3.1 L Chloride Carbon Dioxide BUN 21 H Creatinine 2.0 H Glucose 57 L POC Glucose 64 L 62 L Calcium Phosphorus ALT Alkaline Phosphatase Total Creatine Kinase CK-MB (CK-2) Rel Index Troponin T Albumin LDL Cholesterol Direct PTH Intact Salicylates Acetaminophen Crossmatch 02/24/19 02/24/19 02/24/19 02:11 04:12 04:55 WBC RBC 2.84 L Hgb 7.8 L Hct 24.5 L MCH MCHC RDW 19.5 H Lymph % (Auto) [place] % (Auto) Eos % (Auto) Lymph # [place] # Eos # Seg Neutrophils % Seg Neuts % (Manual) Lymphocytes % (Manual) Eosinophils % (Manual) Seg Neutrophils # Lymphocytes # (Manual) Eosinophils # (Manual) PT INR D-Dimer POC ABG pH 7.511 H POC ABG pCO2 33.9 L POC ABG pO2 62 L ABG pO2 ABG HCO3 ABG Base Excess ABG Hemoglobin Oxyhemoglobin Sodium Potassium Chloride Carbon Dioxide BUN Creatinine Glucose POC Glucose 69 L Calcium Phosphorus ALT Alkaline Phosphatase Total Creatine Kinase CK-MB (CK-2) Rel Index Troponin T Albumin LDL Cholesterol Direct PTH Intact Salicylates Acetaminophen Crossmatch 02/24/19 02/24/19 02/25/19 04:55 05:41 04:45 WBC RBC Hgb Hct MCH MCHC RDW Lymph % (Auto) [place] % (Auto) Eos % (Auto) Lymph # [place] # Eos # Seg Neutrophils % Seg Neuts % (Manual) Lymphocytes % (Manual) Eosinophils % (Manual) Seg Neutrophils # Lymphocytes # (Manual) Eosinophils # (Manual) PT INR D-Dimer POC ABG pH 7.466 H POC ABG pCO2 POC ABG pO2 75 L ABG pO2 ABG HCO3 ABG Base Excess ABG Hemoglobin Oxyhemoglobin Sodium Potassium Chloride Carbon Dioxide BUN Creatinine 1.8 H Glucose 73 L POC Glucose 127 H Calcium Phosphorus ALT Alkaline Phosphatase Total Creatine Kinase CK-MB (CK-2) Rel Index Troponin T Albumin LDL Cholesterol Direct PTH Intact Salicylates Acetaminophen Crossmatch 02/25/19 02/25/19 02/26/19 16:34 21:33 03:45 WBC RBC 2.96 L Hgb 8.0 L Hct 25.8 L MCH 27 L MCHC 31 L RDW 20.0 H Lymph % (Auto) [place] % (Auto) Eos % (Auto) Lymph # [place] # Eos # Seg Neutrophils % Seg Neuts % (Manual) Lymphocytes % (Manual) Eosinophils % (Manual) Seg Neutrophils # Lymphocytes # (Manual) Eosinophils # (Manual) PT INR D-Dimer POC ABG pH POC ABG pCO2 POC ABG pO2 ABG pO2 ABG HCO3 ABG Base Excess ABG Hemoglobin Oxyhemoglobin Sodium Potassium Chloride Carbon Dioxide BUN Creatinine Glucose POC Glucose 141 H 106 H Calcium Phosphorus ALT Alkaline Phosphatase Total Creatine Kinase CK-MB (CK-2) Rel Index Troponin T Albumin LDL Cholesterol Direct PTH Intact Salicylates Acetaminophen Crossmatch 02/26/19 02/26/19 02/26/19 03:45 04:13 07:53 WBC RBC Hgb Hct MCH MCHC RDW Lymph % (Auto) [place] % (Auto) Eos % (Auto) Lymph # [place] # Eos # Seg Neutrophils % Seg Neuts % (Manual) Lymphocytes % (Manual) Eosinophils % (Manual) Seg Neutrophils # Lymphocytes # (Manual) Eosinophils # (Manual) PT INR D-Dimer POC ABG pH 7.470 H POC ABG pCO2 POC ABG pO2 ABG pO2 ABG HCO3 ABG Base Excess ABG Hemoglobin Oxyhemoglobin Sodium Potassium Chloride Carbon Dioxide BUN Creatinine 1.8 H Glucose POC Glucose 110 H Calcium Phosphorus ALT Alkaline Phosphatase Total Creatine Kinase CK-MB (CK-2) Rel Index Troponin T Albumin LDL Cholesterol Direct PTH Intact Salicylates Acetaminophen Crossmatch 02/26/19 02/26/19 02/27/19 11:56 17:43 00:12 WBC RBC Hgb Hct MCH MCHC RDW Lymph % (Auto) [place] % (Auto) Eos % (Auto) Lymph # [place] # Eos # Seg Neutrophils % Seg Neuts % (Manual) Lymphocytes % (Manual) Eosinophils % (Manual) Seg Neutrophils # Lymphocytes # (Manual) Eosinophils # (Manual) PT INR D-Dimer POC ABG pH POC ABG pCO2 POC ABG pO2 ABG pO2 ABG HCO3 ABG Base Excess ABG Hemoglobin Oxyhemoglobin Sodium Potassium Chloride Carbon Dioxide BUN Creatinine Glucose POC Glucose 112 H 127 H 127 H Calcium Phosphorus ALT Alkaline Phosphatase Total Creatine Kinase CK-MB (CK-2) Rel Index Troponin T Albumin LDL Cholesterol Direct PTH Intact Salicylates Acetaminophen Crossmatch 02/27/19 02/27/19 02/27/19 04:35 13:15 18:02 WBC RBC Hgb Hct MCH MCHC RDW Lymph % (Auto) [place] % (Auto) Eos % (Auto) Lymph # [place] # Eos # Seg Neutrophils % Seg Neuts % (Manual) Lymphocytes % (Manual) Eosinophils % (Manual) Seg Neutrophils # Lymphocytes # (Manual) Eosinophils # (Manual) PT INR D-Dimer POC ABG pH 7.483 H POC ABG pCO2 POC ABG pO2 61 L ABG pO2 ABG HCO3 ABG Base Excess ABG Hemoglobin Oxyhemoglobin Sodium Potassium Chloride Carbon Dioxide BUN Creatinine Glucose POC Glucose 143 H 106 H Calcium Phosphorus ALT Alkaline Phosphatase Total Creatine Kinase CK-MB (CK-2) Rel Index Troponin T Albumin LDL Cholesterol Direct PTH Intact Salicylates Acetaminophen Crossmatch 02/28/19 02/28/19 02/28/19 05:50 11:59 17:52 WBC RBC Hgb Hct MCH MCHC RDW Lymph % (Auto) [place] % (Auto) Eos % (Auto) Lymph # [place] # Eos # Seg Neutrophils % Seg Neuts % (Manual) Lymphocytes % (Manual) Eosinophils % (Manual) Seg Neutrophils # Lymphocytes # (Manual) Eosinophils # (Manual) PT INR D-Dimer POC ABG pH POC ABG pCO2 POC ABG pO2 ABG pO2 ABG HCO3 ABG Base Excess ABG Hemoglobin Oxyhemoglobin Sodium Potassium Chloride Carbon Dioxide BUN Creatinine Glucose POC Glucose 134 H 128 H 142 H Calcium Phosphorus ALT Alkaline Phosphatase Total Creatine Kinase CK-MB (CK-2) Rel Index Troponin T Albumin LDL Cholesterol Direct PTH Intact Salicylates Acetaminophen Crossmatch 02/28/19 03/01/19 03/01/19 23:13 05:40 09:39 WBC RBC Hgb Hct MCH MCHC RDW Lymph % (Auto) [place] % (Auto) Eos % (Auto) Lymph # [place] # Eos # Seg Neutrophils % Seg Neuts % (Manual) Lymphocytes % (Manual) Eosinophils % (Manual) Seg Neutrophils # Lymphocytes # (Manual) Eosinophils # (Manual) PT 16.3 H INR 1.35 H D-Dimer POC ABG pH POC ABG pCO2 POC ABG pO2 ABG pO2 ABG HCO3 ABG Base Excess ABG Hemoglobin Oxyhemoglobin Sodium Potassium Chloride Carbon Dioxide BUN Creatinine Glucose POC Glucose 112 H 111 H Calcium Phosphorus ALT Alkaline Phosphatase Total Creatine Kinase CK-MB (CK-2) Rel Index Troponin T Albumin LDL Cholesterol Direct PTH Intact Salicylates Acetaminophen Crossmatch 03/01/19 03/01/19 03/01/19 11:56 13:54 17:59 WBC RBC Hgb Hct MCH MCHC RDW Lymph % (Auto) [place] % (Auto) Eos % (Auto) Lymph # [place] # Eos # Seg Neutrophils % Seg Neuts % (Manual) Lymphocytes % (Manual) Eosinophils % (Manual) Seg Neutrophils # Lymphocytes # (Manual) Eosinophils # (Manual) PT INR D-Dimer POC ABG pH POC ABG pCO2 POC ABG pO2 ABG pO2 ABG HCO3 ABG Base Excess ABG Hemoglobin Oxyhemoglobin Sodium Potassium Chloride Carbon Dioxide BUN 33 H Creatinine 2.8 H D Glucose 176 H POC Glucose 199 H 147 H Calcium Phosphorus ALT Alkaline Phosphatase Total Creatine Kinase CK-MB (CK-2) Rel Index Troponin T Albumin LDL Cholesterol Direct PTH Intact Salicylates Acetaminophen Crossmatch 03/02/19 03/02/19 03/02/19 05:15 05:15 05:15 WBC RBC 2.73 L Hgb 7.4 L Hct 23.0 L MCH 27 L MCHC RDW 19.9 H Lymph % (Auto) [place] % (Auto) 7.9 H Eos % (Auto) 7.6 H Lymph # 1.0 L [place] # Eos # 0.5 H Seg Neutrophils % Seg Neuts % (Manual) Lymphocytes % (Manual) Eosinophils % (Manual) Seg Neutrophils # Lymphocytes # (Manual) Eosinophils # (Manual) PT INR D-Dimer POC ABG pH POC ABG pCO2 POC ABG pO2 ABG pO2 ABG HCO3 ABG Base Excess ABG Hemoglobin Oxyhemoglobin Sodium Potassium Chloride Carbon Dioxide BUN 43 H Creatinine 3.2 H Glucose POC Glucose Calcium Phosphorus 2.30 L ALT Alkaline Phosphatase Total Creatine Kinase CK-MB (CK-2) Rel Index Troponin T Albumin LDL Cholesterol Direct PTH Intact 267.6 H Salicylates Acetaminophen Crossmatch 03/02/19 03/02/19 03/03/19 12:32 18:20 13:30 WBC RBC Hgb Hct MCH MCHC RDW Lymph % (Auto) [place] % (Auto) Eos % (Auto) Lymph # [place] # Eos # Seg Neutrophils % Seg Neuts % (Manual) Lymphocytes % (Manual) Eosinophils % (Manual) Seg Neutrophils # Lymphocytes # (Manual) Eosinophils # (Manual) PT INR D-Dimer POC ABG pH POC ABG pCO2 POC ABG pO2 ABG pO2 ABG HCO3 ABG Base Excess ABG Hemoglobin Oxyhemoglobin Sodium Potassium Chloride 97.3 L Carbon Dioxide BUN 26 H Creatinine 2.2 H Glucose 73 L POC Glucose 111 H 156 H Calcium Phosphorus ALT Alkaline Phosphatase Total Creatine Kinase CK-MB (CK-2) Rel Index Troponin T Albumin LDL Cholesterol Direct PTH Intact Salicylates Acetaminophen Crossmatch 03/04/19 03/04/19 03/04/19 00:02 05:37 05:40 WBC RBC 2.63 L Hgb 7.2 L Hct 22.2 L MCH MCHC RDW 20.2 H Lymph % (Auto) 10.5 L [place] % (Auto) Eos % (Auto) 4.6 H Lymph # 0.7 L [place] # Eos # Seg Neutrophils % 76.9 H Seg Neuts % (Manual) Lymphocytes % (Manual) Eosinophils % (Manual) Seg Neutrophils # Lymphocytes # (Manual) Eosinophils # (Manual) PT INR D-Dimer POC ABG pH POC ABG pCO2 POC ABG pO2 ABG pO2 ABG HCO3 ABG Base Excess ABG Hemoglobin Oxyhemoglobin Sodium Potassium Chloride Carbon Dioxide BUN Creatinine Glucose POC Glucose 136 H 123 H Calcium Phosphorus ALT Alkaline Phosphatase Total Creatine Kinase CK-MB (CK-2) Rel Index Troponin T Albumin LDL Cholesterol Direct PTH Intact Salicylates Acetaminophen Crossmatch 03/04/19 03/04/19 03/04/19 05:40 11:39 23:20 WBC RBC Hgb Hct MCH MCHC RDW Lymph % (Auto) [place] % (Auto) Eos % (Auto) Lymph # [place] # Eos # Seg Neutrophils % Seg Neuts % (Manual) Lymphocytes % (Manual) Eosinophils % (Manual) Seg Neutrophils # Lymphocytes # (Manual) Eosinophils # (Manual) PT INR D-Dimer POC ABG pH POC ABG pCO2 POC ABG pO2 ABG pO2 ABG HCO3 ABG Base Excess ABG Hemoglobin Oxyhemoglobin Sodium Potassium Chloride Carbon Dioxide BUN 34 H Creatinine 2.7 H Glucose 114 H POC Glucose 175 H 151 H Calcium Phosphorus ALT Alkaline Phosphatase Total Creatine Kinase CK-MB (CK-2) Rel Index Troponin T Albumin LDL Cholesterol Direct PTH Intact Salicylates Acetaminophen Crossmatch 03/05/19 03/05/19 03/05/19 05:37 12:08 17:11 WBC RBC Hgb Hct MCH MCHC RDW Lymph % (Auto) [place] % (Auto) Eos % (Auto) Lymph # [place] # Eos # Seg Neutrophils % Seg Neuts % (Manual) Lymphocytes % (Manual) Eosinophils % (Manual) Seg Neutrophils # Lymphocytes # (Manual) Eosinophils # (Manual) PT INR D-Dimer POC ABG pH POC ABG pCO2 POC ABG pO2 ABG pO2 ABG HCO3 ABG Base Excess ABG Hemoglobin Oxyhemoglobin Sodium Potassium Chloride Carbon Dioxide BUN Creatinine Glucose POC Glucose 134 H 135 H 135 H Calcium Phosphorus ALT Alkaline Phosphatase Total Creatine Kinase CK-MB (CK-2) Rel Index Troponin T Albumin LDL Cholesterol Direct PTH Intact Salicylates Acetaminophen Crossmatch 03/06/19 03/06/19 03/06/19 00:16 13:05 18:09 WBC RBC Hgb Hct MCH MCHC RDW Lymph % (Auto) [place] % (Auto) Eos % (Auto) Lymph # [place] # Eos # Seg Neutrophils % Seg Neuts % (Manual) Lymphocytes % (Manual) Eosinophils % (Manual) Seg Neutrophils # Lymphocytes # (Manual) Eosinophils # (Manual) PT INR D-Dimer POC ABG pH POC ABG pCO2 POC ABG pO2 ABG pO2 ABG HCO3 ABG Base Excess ABG Hemoglobin Oxyhemoglobin Sodium Potassium Chloride Carbon Dioxide BUN Creatinine Glucose POC Glucose 117 H 113 H 131 H Calcium Phosphorus ALT Alkaline Phosphatase Total Creatine Kinase CK-MB (CK-2) Rel Index Troponin T Albumin LDL Cholesterol Direct PTH Intact Salicylates Acetaminophen Crossmatch 03/07/19 03/08/19 03/08/19 05:25 05:33 16:00 WBC RBC 2.44 L Hgb 6.6 L Hct 20.8 L MCH 27 L MCHC RDW 19.2 H Lymph % (Auto) [place] % (Auto) Eos % (Auto) 8.6 H Lymph # 0.8 L [place] # Eos # 0.5 H Seg Neutrophils % 70.7 H Seg Neuts % (Manual) Lymphocytes % (Manual) Eosinophils % (Manual) Seg Neutrophils # Lymphocytes # (Manual) Eosinophils # (Manual) PT INR D-Dimer POC ABG pH POC ABG pCO2 POC ABG pO2 ABG pO2 ABG HCO3 ABG Base Excess ABG Hemoglobin Oxyhemoglobin Sodium Potassium Chloride Carbon Dioxide BUN Creatinine Glucose POC Glucose 106 H 108 H Calcium Phosphorus ALT Alkaline Phosphatase Total Creatine Kinase CK-MB (CK-2) Rel Index Troponin T Albumin LDL Cholesterol Direct PTH Intact Salicylates Acetaminophen Crossmatch 03/08/19 03/08/19 03/08/19 16:00 18:38 Unknown WBC RBC Hgb Hct MCH MCHC RDW Lymph % (Auto) [place] % (Auto) Eos % (Auto) Lymph # [place] # Eos # Seg Neutrophils % Seg Neuts % (Manual) Lymphocytes % (Manual) Eosinophils % (Manual) Seg Neutrophils # Lymphocytes # (Manual) Eosinophils # (Manual) PT INR D-Dimer POC ABG pH POC ABG pCO2 POC ABG pO2 ABG pO2 ABG HCO3 ABG Base Excess ABG Hemoglobin Oxyhemoglobin Sodium Potassium 5.4 H D Chloride Carbon Dioxide BUN 47 H Creatinine 2.6 H Glucose POC Glucose 123 H Calcium Phosphorus ALT < 5 L Alkaline Phosphatase Total Creatine Kinase CK-MB (CK-2) Rel Index Troponin T Albumin 2.2 L LDL Cholesterol Direct PTH Intact Salicylates Acetaminophen Crossmatch See Detail 03/09/19 03/09/19 03/09/19 10:48 12:28 13:53 WBC RBC 2.85 L Hgb 7.7 L Hct 24.2 L MCH 27 L MCHC RDW 18.7 H Lymph % (Auto) [place] % (Auto) Eos % (Auto) Lymph # [place] # Eos # Seg Neutrophils % Seg Neuts % (Manual) Lymphocytes % (Manual) Eosinophils % (Manual) Seg Neutrophils # Lymphocytes # (Manual) Eosinophils # (Manual) PT INR D-Dimer POC ABG pH POC ABG pCO2 POC ABG pO2 ABG pO2 ABG HCO3 30.5 H ABG Base Excess 5.6 H ABG Hemoglobin 8.1 L Oxyhemoglobin 93.8 L Sodium Potassium Chloride Carbon Dioxide BUN Creatinine Glucose POC Glucose 114 H Calcium Phosphorus ALT Alkaline Phosphatase Total Creatine Kinase CK-MB (CK-2) Rel Index Troponin T Albumin LDL Cholesterol Direct PTH Intact Salicylates Acetaminophen Crossmatch 03/09/19 03/09/19 03/10/19 17:58 23:53 12:01 WBC RBC Hgb Hct MCH MCHC RDW Lymph % (Auto) [place] % (Auto) Eos % (Auto) Lymph # [place] # Eos # Seg Neutrophils % Seg Neuts % (Manual) Lymphocytes % (Manual) Eosinophils % (Manual) Seg Neutrophils # Lymphocytes # (Manual) Eosinophils # (Manual) PT INR D-Dimer POC ABG pH POC ABG pCO2 POC ABG pO2 ABG pO2 ABG HCO3 ABG Base Excess ABG Hemoglobin Oxyhemoglobin Sodium Potassium Chloride Carbon Dioxide BUN Creatinine Glucose POC Glucose 108 H 128 H 144 H Calcium Phosphorus ALT Alkaline Phosphatase Total Creatine Kinase CK-MB (CK-2) Rel Index Troponin T Albumin LDL Cholesterol Direct PTH Intact Salicylates Acetaminophen Crossmatch 03/10/19 03/11/19 03/11/19 16:50 00:24 05:02 WBC RBC Hgb Hct MCH MCHC RDW Lymph % (Auto) [place] % (Auto) Eos % (Auto) Lymph # [place] # Eos # Seg Neutrophils % Seg Neuts % (Manual) Lymphocytes % (Manual) Eosinophils % (Manual) Seg Neutrophils # Lymphocytes # (Manual) Eosinophils # (Manual) PT INR D-Dimer POC ABG pH POC ABG pCO2 POC ABG pO2 ABG pO2 ABG HCO3 ABG Base Excess ABG Hemoglobin Oxyhemoglobin Sodium Potassium Chloride Carbon Dioxide BUN Creatinine Glucose POC Glucose 147 H 123 H 120 H Calcium Phosphorus ALT Alkaline Phosphatase Total Creatine Kinase CK-MB (CK-2) Rel Index Troponin T Albumin LDL Cholesterol Direct PTH Intact Salicylates Acetaminophen Crossmatch 03/11/19 03/11/19 03/11/19 11:56 12:20 18:37 WBC RBC Hgb Hct MCH MCHC RDW Lymph % (Auto) [place] % (Auto) Eos % (Auto) Lymph # [place] # Eos # Seg Neutrophils % Seg Neuts % (Manual) Lymphocytes % (Manual) Eosinophils % (Manual) Seg Neutrophils # Lymphocytes # (Manual) Eosinophils # (Manual) PT INR D-Dimer POC ABG pH POC ABG pCO2 POC ABG pO2 ABG pO2 ABG HCO3 ABG Base Excess ABG Hemoglobin Oxyhemoglobin Sodium Potassium 5.2 H Chloride Carbon Dioxide BUN Creatinine Glucose POC Glucose 123 H 125 H Calcium Phosphorus ALT Alkaline Phosphatase Total Creatine Kinase CK-MB (CK-2) Rel Index Troponin T Albumin LDL Cholesterol Direct PTH Intact Salicylates Acetaminophen Crossmatch 03/11/19 03/12/19 03/12/19 22:52 12:04 18:25 WBC RBC Hgb Hct MCH MCHC RDW Lymph % (Auto) [place] % (Auto) Eos % (Auto) Lymph # [place] # Eos # Seg Neutrophils % Seg Neuts % (Manual) Lymphocytes % (Manual) Eosinophils % (Manual) Seg Neutrophils # Lymphocytes # (Manual) Eosinophils # (Manual) PT INR D-Dimer POC ABG pH POC ABG pCO2 POC ABG pO2 ABG pO2 ABG HCO3 ABG Base Excess ABG Hemoglobin Oxyhemoglobin Sodium Potassium Chloride Carbon Dioxide BUN Creatinine Glucose POC Glucose 110 H 106 H 118 H Calcium Phosphorus ALT Alkaline Phosphatase Total Creatine Kinase CK-MB (CK-2) Rel Index Troponin T Albumin LDL Cholesterol Direct PTH Intact Salicylates Acetaminophen Crossmatch 03/12/19 03/13/19 03/13/19 23:36 04:38 04:38 WBC RBC 2.95 L Hgb 7.9 L Hct 24.9 L MCH 27 L MCHC RDW 19.9 H Lymph % (Auto) 11.1 L [place] % (Auto) 8.1 H Eos % (Auto) 4.4 H Lymph # 0.9 L [place] # Eos # Seg Neutrophils % 75.4 H Seg Neuts % (Manual) Lymphocytes % (Manual) Eosinophils % (Manual) Seg Neutrophils # Lymphocytes # (Manual) Eosinophils # (Manual) PT INR D-Dimer POC ABG pH POC ABG pCO2 POC ABG pO2 ABG pO2 ABG HCO3 ABG Base Excess ABG Hemoglobin Oxyhemoglobin Sodium 136 L Potassium 5.1 H Chloride 93.8 L Carbon Dioxide BUN 48 H Creatinine 2.7 H Glucose 102 H POC Glucose 115 H Calcium Phosphorus ALT < 5 L Alkaline Phosphatase 143 H Total Creatine Kinase CK-MB (CK-2) Rel Index Troponin T Albumin 2.5 L LDL Cholesterol Direct PTH Intact Salicylates Acetaminophen Crossmatch 03/13/19 03/13/19 03/13/19 05:33 13:37 18:03 WBC RBC Hgb Hct MCH MCHC RDW Lymph % (Auto) [place] % (Auto) Eos % (Auto) Lymph # [place] # Eos # Seg Neutrophils % Seg Neuts % (Manual) Lymphocytes % (Manual) Eosinophils % (Manual) Seg Neutrophils # Lymphocytes # (Manual) Eosinophils # (Manual) PT INR D-Dimer POC ABG pH POC ABG pCO2 POC ABG pO2 ABG pO2 ABG HCO3 ABG Base Excess ABG Hemoglobin Oxyhemoglobin Sodium Potassium Chloride Carbon Dioxide BUN Creatinine Glucose POC Glucose 140 H 150 H 158 H Calcium Phosphorus ALT Alkaline Phosphatase Total Creatine Kinase CK-MB (CK-2) Rel Index Troponin T Albumin LDL Cholesterol Direct PTH Intact Salicylates Acetaminophen Crossmatch 03/13/19 03/14/19 03/14/19 23:32 05:24 12:20 WBC RBC Hgb Hct MCH MCHC RDW Lymph % (Auto) [place] % (Auto) Eos % (Auto) Lymph # [place] # Eos # Seg Neutrophils % Seg Neuts % (Manual) Lymphocytes % (Manual) Eosinophils % (Manual) Seg Neutrophils # Lymphocytes # (Manual) Eosinophils # (Manual) PT INR D-Dimer POC ABG pH POC ABG pCO2 POC ABG pO2 ABG pO2 ABG HCO3 ABG Base Excess ABG Hemoglobin Oxyhemoglobin Sodium Potassium Chloride Carbon Dioxide BUN Creatinine Glucose POC Glucose 162 H 146 H 127 H Calcium Phosphorus ALT Alkaline Phosphatase Total Creatine Kinase CK-MB (CK-2) Rel Index Troponin T Albumin LDL Cholesterol Direct PTH Intact Salicylates Acetaminophen Crossmatch 03/14/19 03/14/19 03/15/19 18:05 23:57 04:38 WBC 12.8 H RBC 3.11 L Hgb 8.1 L Hct 26.5 L MCH 26 L MCHC 31 L RDW 19.7 H Lymph % (Auto) 4.4 L [place] % (Auto) 7.4 H Eos % (Auto) Lymph # 0.6 L [place] # 0.9 H Eos # Seg Neutrophils % 87.3 H Seg Neuts % (Manual) Lymphocytes % (Manual) Eosinophils % (Manual) Seg Neutrophils # 11.2 H Lymphocytes # (Manual) Eosinophils # (Manual) PT INR D-Dimer POC ABG pH POC ABG pCO2 POC ABG pO2 ABG pO2 ABG HCO3 ABG Base Excess ABG Hemoglobin Oxyhemoglobin Sodium Potassium Chloride Carbon Dioxide BUN Creatinine Glucose POC Glucose 142 H 155 H Calcium Phosphorus ALT Alkaline Phosphatase Total Creatine Kinase CK-MB (CK-2) Rel Index Troponin T Albumin LDL Cholesterol Direct PTH Intact Salicylates Acetaminophen Crossmatch 03/15/19 03/15/19 03/15/19 04:38 05:31 11:32 WBC RBC Hgb Hct MCH MCHC RDW Lymph % (Auto) [place] % (Auto) Eos % (Auto) Lymph # [place] # Eos # Seg Neutrophils % Seg Neuts % (Manual) Lymphocytes % (Manual) Eosinophils % (Manual) Seg Neutrophils # Lymphocytes # (Manual) Eosinophils # (Manual) PT INR D-Dimer POC ABG pH POC ABG pCO2 POC ABG pO2 ABG pO2 ABG HCO3 ABG Base Excess ABG Hemoglobin Oxyhemoglobin Sodium 135 L Potassium Chloride 91.9 L Carbon Dioxide BUN 54 H Creatinine 2.8 H Glucose 128 H POC Glucose 160 H 109 H Calcium 11.1 H Phosphorus ALT Alkaline Phosphatase 161 H Total Creatine Kinase CK-MB (CK-2) Rel Index Troponin T Albumin 2.3 L LDL Cholesterol Direct PTH Intact Salicylates Acetaminophen Crossmatch 03/15/19 03/15/19 03/16/19 18:15 23:41 05:40 WBC RBC Hgb Hct MCH MCHC RDW Lymph % (Auto) [place] % (Auto) Eos % (Auto) Lymph # [place] # Eos # Seg Neutrophils % Seg Neuts % (Manual) Lymphocytes % (Manual) Eosinophils % (Manual) Seg Neutrophils # Lymphocytes # (Manual) Eosinophils # (Manual) PT INR D-Dimer POC ABG pH POC ABG pCO2 POC ABG pO2 ABG pO2 ABG HCO3 ABG Base Excess ABG Hemoglobin Oxyhemoglobin Sodium Potassium Chloride Carbon Dioxide BUN Creatinine Glucose POC Glucose 151 H 110 H 163 H Calcium Phosphorus ALT Alkaline Phosphatase Total Creatine Kinase CK-MB (CK-2) Rel Index Troponin T Albumin LDL Cholesterol Direct PTH Intact Salicylates Acetaminophen Crossmatch 03/16/19 03/16/19 03/16/19 11:55 17:04 23:58 WBC RBC Hgb Hct MCH MCHC RDW Lymph % (Auto) [place] % (Auto) Eos % (Auto) Lymph # [place] # Eos # Seg Neutrophils % Seg Neuts % (Manual) Lymphocytes % (Manual) Eosinophils % (Manual) Seg Neutrophils # Lymphocytes # (Manual) Eosinophils # (Manual) PT INR D-Dimer POC ABG pH POC ABG pCO2 POC ABG pO2 ABG pO2 ABG HCO3 ABG Base Excess ABG Hemoglobin Oxyhemoglobin Sodium Potassium Chloride Carbon Dioxide BUN Creatinine Glucose POC Glucose 114 H 147 H 192 H Calcium Phosphorus ALT Alkaline Phosphatase Total Creatine Kinase CK-MB (CK-2) Rel Index Troponin T Albumin LDL Cholesterol Direct PTH Intact Salicylates Acetaminophen Crossmatch 03/17/19 03/17/19 03/17/19 05:53 11:17 17:01 WBC RBC Hgb Hct MCH MCHC RDW Lymph % (Auto) [place] % (Auto) Eos % (Auto) Lymph # [place] # Eos # Seg Neutrophils % Seg Neuts % (Manual) Lymphocytes % (Manual) Eosinophils % (Manual) Seg Neutrophils # Lymphocytes # (Manual) Eosinophils # (Manual) PT INR D-Dimer POC ABG pH POC ABG pCO2 POC ABG pO2 ABG pO2 ABG HCO3 ABG Base Excess ABG Hemoglobin Oxyhemoglobin Sodium Potassium Chloride Carbon Dioxide BUN Creatinine Glucose POC Glucose 151 H 161 H 152 H Calcium Phosphorus ALT Alkaline Phosphatase Total Creatine Kinase CK-MB (CK-2) Rel Index Troponin T Albumin LDL Cholesterol Direct PTH Intact Salicylates Acetaminophen Crossmatch 03/17/19 03/18/19 03/18/19 21:47 04:15 04:44 WBC RBC Hgb Hct MCH MCHC RDW Lymph % (Auto) [place] % (Auto) Eos % (Auto) Lymph # [place] # Eos # Seg Neutrophils % Seg Neuts % (Manual) Lymphocytes % (Manual) Eosinophils % (Manual) Seg Neutrophils # Lymphocytes # (Manual) Eosinophils # (Manual) PT INR D-Dimer POC ABG pH POC ABG pCO2 POC ABG pO2 ABG pO2 102.8 H ABG HCO3 28.3 H ABG Base Excess ABG Hemoglobin 10.4 L Oxyhemoglobin 94.5 L Sodium Potassium Chloride Carbon Dioxide BUN Creatinine Glucose POC Glucose 170 H 150 H Calcium Phosphorus ALT Alkaline Phosphatase Total Creatine Kinase CK-MB (CK-2) Rel Index Troponin T Albumin LDL Cholesterol Direct PTH Intact Salicylates Acetaminophen Crossmatch 03/18/19 03/18/19 03/18/19 06:38 12:12 17:47 WBC RBC Hgb Hct MCH MCHC RDW Lymph % (Auto) [place] % (Auto) Eos % (Auto) Lymph # [place] # Eos # Seg Neutrophils % Seg Neuts % (Manual) Lymphocytes % (Manual) Eosinophils % (Manual) Seg Neutrophils # Lymphocytes # (Manual) Eosinophils # (Manual) PT INR D-Dimer POC ABG pH 7.510 H POC ABG pCO2 POC ABG pO2 164 H ABG pO2 ABG HCO3 ABG Base Excess ABG Hemoglobin Oxyhemoglobin Sodium Potassium Chloride Carbon Dioxide BUN Creatinine Glucose POC Glucose 145 H 149 H Calcium Phosphorus ALT Alkaline Phosphatase Total Creatine Kinase CK-MB (CK-2) Rel Index Troponin T Albumin LDL Cholesterol Direct PTH Intact Salicylates Acetaminophen Crossmatch 03/18/19 03/19/19 03/19/19 23:25 01:11 04:23 WBC 15.6 H RBC 2.51 L Hgb 6.5 L Hct 21.6 L MCH 26 L MCHC 30 L RDW 19.8 H Lymph % (Auto) 6.0 L [place] % (Auto) Eos % (Auto) Lymph # 0.9 L [place] # 1.0 H Eos # Seg Neutrophils % 85.5 H Seg Neuts % (Manual) Lymphocytes % (Manual) Eosinophils % (Manual) Seg Neutrophils # 13.4 H Lymphocytes # (Manual) Eosinophils # (Manual) PT INR D-Dimer POC ABG pH POC ABG pCO2 POC ABG pO2 ABG pO2 78.3 L ABG HCO3 30.7 H ABG Base Excess 5.8 H ABG Hemoglobin 5.8 L Oxyhemoglobin 94.6 L Sodium Potassium Chloride Carbon Dioxide BUN Creatinine Glucose POC Glucose 190 H Calcium Phosphorus ALT Alkaline Phosphatase Total Creatine Kinase CK-MB (CK-2) Rel Index Troponin T Albumin LDL Cholesterol Direct PTH Intact Salicylates Acetaminophen Crossmatch 03/19/19 03/19/19 03/19/19 05:22 05:35 08:54 WBC RBC Hgb Hct MCH MCHC RDW Lymph % (Auto) [place] % (Auto) Eos % (Auto) Lymph # [place] # Eos # Seg Neutrophils % Seg Neuts % (Manual) Lymphocytes % (Manual) Eosinophils % (Manual) Seg Neutrophils # Lymphocytes # (Manual) Eosinophils # (Manual) PT INR D-Dimer POC ABG pH POC ABG pCO2 POC ABG pO2 ABG pO2 ABG HCO3 ABG Base Excess ABG Hemoglobin Oxyhemoglobin Sodium Potassium Chloride Carbon Dioxide BUN Creatinine Glucose POC Glucose 167 H Calcium Phosphorus ALT Alkaline Phosphatase Total Creatine Kinase CK-MB (CK-2) Rel Index Troponin T Albumin LDL Cholesterol Direct PTH Intact Salicylates Acetaminophen Crossmatch See Detail See Detail 03/19/19 03/19/19 03/19/19 12:36 17:02 23:25 WBC RBC Hgb Hct MCH MCHC RDW Lymph % (Auto) [place] % (Auto) Eos % (Auto) Lymph # [place] # Eos # Seg Neutrophils % Seg Neuts % (Manual) Lymphocytes % (Manual) Eosinophils % (Manual) Seg Neutrophils # Lymphocytes # (Manual) Eosinophils # (Manual) PT INR D-Dimer POC ABG pH POC ABG pCO2 POC ABG pO2 ABG pO2 ABG HCO3 ABG Base Excess ABG Hemoglobin Oxyhemoglobin Sodium Potassium Chloride Carbon Dioxide BUN Creatinine Glucose POC Glucose 167 H 135 H 136 H Calcium Phosphorus ALT Alkaline Phosphatase Total Creatine Kinase CK-MB (CK-2) Rel Index Troponin T Albumin LDL Cholesterol Direct PTH Intact Salicylates Acetaminophen Crossmatch 03/20/19 03/20/19 03/20/19 05:38 08:40 08:40 WBC RBC 2.61 L Hgb 7.1 L Hct 22.0 L MCH 27 L MCHC RDW 19.6 H Lymph % (Auto) 8.2 L [place] % (Auto) 8.3 H Eos % (Auto) 5.7 H Lymph # 0.8 L [place] # Eos # 0.5 H Seg Neutrophils % 77.3 H Seg Neuts % (Manual) Lymphocytes % (Manual) Eosinophils % (Manual) Seg Neutrophils # Lymphocytes # (Manual) Eosinophils # (Manual) PT INR D-Dimer POC ABG pH POC ABG pCO2 POC ABG pO2 ABG pO2 ABG HCO3 ABG Base Excess ABG Hemoglobin Oxyhemoglobin Sodium Potassium Chloride 95.9 L Carbon Dioxide BUN 69 H Creatinine 2.8 H Glucose 115 H POC Glucose 134 H Calcium 10.5 H Phosphorus ALT Alkaline Phosphatase Total Creatine Kinase CK-MB (CK-2) Rel Index Troponin T Albumin LDL Cholesterol Direct PTH Intact Salicylates Acetaminophen Crossmatch 03/20/19 03/20/19 03/20/19 12:13 18:04 23:49 WBC RBC Hgb Hct MCH MCHC RDW Lymph % (Auto) [place] % (Auto) Eos % (Auto) Lymph # [place] # Eos # Seg Neutrophils % Seg Neuts % (Manual) Lymphocytes % (Manual) Eosinophils % (Manual) Seg Neutrophils # Lymphocytes # (Manual) Eosinophils # (Manual) PT INR D-Dimer POC ABG pH POC ABG pCO2 POC ABG pO2 ABG pO2 ABG HCO3 ABG Base Excess ABG Hemoglobin Oxyhemoglobin Sodium Potassium Chloride Carbon Dioxide BUN Creatinine Glucose POC Glucose 144 H 165 H 172 H Calcium Phosphorus ALT Alkaline Phosphatase Total Creatine Kinase CK-MB (CK-2) Rel Index Troponin T Albumin LDL Cholesterol Direct PTH Intact Salicylates Acetaminophen Crossmatch 03/21/19 03/21/19 03/21/19 05:00 06:29 06:30 WBC RBC 2.72 L Hgb 7.4 L Hct 22.9 L MCH 27 L MCHC RDW 19.4 H Lymph % (Auto) [place] % (Auto) Eos % (Auto) Lymph # [place] # Eos # Seg Neutrophils % Seg Neuts % (Manual) 81.0 H Lymphocytes % (Manual) 8.0 L Eosinophils % (Manual) 8.0 H Seg Neutrophils # Lymphocytes # (Manual) 0.7 L Eosinophils # (Manual) 0.7 H PT INR D-Dimer POC ABG pH POC ABG pCO2 POC ABG pO2 ABG pO2 ABG HCO3 ABG Base Excess ABG Hemoglobin Oxyhemoglobin Sodium Potassium Chloride Carbon Dioxide 33 H BUN 43 H Creatinine 1.7 H Glucose 145 H POC Glucose 156 H Calcium Phosphorus ALT Alkaline Phosphatase 212 H Total Creatine Kinase CK-MB (CK-2) Rel Index Troponin T Albumin 2.2 L LDL Cholesterol Direct PTH Intact Salicylates Acetaminophen Crossmatch 03/21/19 03/21/1919 12:02 18:07 00:21 WBC RBC Hgb Hct MCH MCHC RDW Lymph % (Auto) [place] % (Auto) Eos % (Auto) Lymph # [place] # Eos # Seg Neutrophils % Seg Neuts % (Manual) Lymphocytes % (Manual) Eosinophils % (Manual) Seg Neutrophils # Lymphocytes # (Manual) Eosinophils # (Manual) PT INR D-Dimer POC ABG pH POC ABG pCO2 POC ABG pO2 ABG pO2 ABG HCO3 ABG Base Excess ABG Hemoglobin Oxyhemoglobin Sodium Potassium Chloride Carbon Dioxide BUN Creatinine Glucose POC Glucose 163 H 144 H 153 H Calcium Phosphorus ALT Alkaline Phosphatase Total Creatine Kinase CK-MB (CK-2) Rel Index Troponin T Albumin LDL Cholesterol Direct PTH Intact Salicylates Acetaminophen Crossmatch 03/22/19 03/22/19 03/22/19 05:23 05:23 05:31 WBC RBC 2.58 L Hgb 7.1 L Hct 21.8 L MCH 27 L MCHC RDW 19.2 H Lymph % (Auto) [place] % (Auto) Eos % (Auto) Lymph # [place] # Eos # Seg Neutrophils % Seg Neuts % (Manual) Lymphocytes % (Manual) Eosinophils % (Manual) Seg Neutrophils # Lymphocytes # (Manual) Eosinophils # (Manual) PT INR D-Dimer POC ABG pH POC ABG pCO2 POC ABG pO2 ABG pO2 ABG HCO3 ABG Base Excess ABG Hemoglobin Oxyhemoglobin Sodium 147 H Potassium Chloride Carbon Dioxide BUN 68 H Creatinine 2.5 H Glucose POC Glucose 116 H Calcium 10.3 H Phosphorus ALT Alkaline Phosphatase Total Creatine Kinase CK-MB (CK-2) Rel Index Troponin T Albumin LDL Cholesterol Direct PTH Intact Salicylates Acetaminophen Crossmatch 03/22/19 03/22/19 03/22/19 08:48 12:37 17:35 WBC RBC Hgb Hct MCH MCHC RDW Lymph % (Auto) [place] % (Auto) Eos % (Auto) Lymph # [place] # Eos # Seg Neutrophils % Seg Neuts % (Manual) Lymphocytes % (Manual) Eosinophils % (Manual) Seg Neutrophils # Lymphocytes # (Manual) Eosinophils # (Manual) PT INR D-Dimer POC ABG pH POC ABG pCO2 POC ABG pO2 ABG pO2 ABG HCO3 ABG Base Excess ABG Hemoglobin Oxyhemoglobin Sodium Potassium Chloride Carbon Dioxide BUN Creatinine Glucose POC Glucose 143 H 155 H Calcium Phosphorus ALT Alkaline Phosphatase Total Creatine Kinase CK-MB (CK-2) Rel Index Troponin T Albumin LDL Cholesterol Direct PTH Intact Salicylates Acetaminophen Crossmatch See Detail 03/23/19 03/23/19 03/23/19 00:07 04:00 04:00 WBC 11.2 H RBC 2.32 L Hgb 6.4 L Hct 19.7 L* MCH MCHC RDW 19.4 H Lymph % (Auto) [place] % (Auto) Eos % (Auto) Lymph # [place] # Eos # Seg Neutrophils % Seg Neuts % (Manual) Lymphocytes % (Manual) Eosinophils % (Manual) Seg Neutrophils # Lymphocytes # (Manual) Eosinophils # (Manual) PT INR D-Dimer POC ABG pH POC ABG pCO2 POC ABG pO2 ABG pO2 ABG HCO3 ABG Base Excess ABG Hemoglobin Oxyhemoglobin Sodium 147 H Potassium 5.2 H Chloride Carbon Dioxide BUN 86 H Creatinine 3.2 H Glucose 128 H POC Glucose 135 H Calcium 10.3 H Phosphorus ALT Alkaline Phosphatase Total Creatine Kinase CK-MB (CK-2) Rel Index Troponin T Albumin LDL Cholesterol Direct PTH Intact Salicylates Acetaminophen Crossmatch 03/23/19 03/23/19 03/23/19 05:21 11:36 11:36 WBC RBC Hgb 7.9 L Hct 25.0 L MCH MCHC RDW Lymph % (Auto) [place] % (Auto) Eos % (Auto) Lymph # [place] # Eos # Seg Neutrophils % Seg Neuts % (Manual) Lymphocytes % (Manual) Eosinophils % (Manual) Seg Neutrophils # Lymphocytes # (Manual) Eosinophils # (Manual) PT INR D-Dimer POC ABG pH POC ABG pCO2 POC ABG pO2 ABG pO2 ABG HCO3 ABG Base Excess ABG Hemoglobin Oxyhemoglobin Sodium Potassium Chloride Carbon Dioxide BUN Creatinine Glucose POC Glucose 132 H 147 H Calcium Phosphorus ALT Alkaline Phosphatase Total Creatine Kinase CK-MB (CK-2) Rel Index Troponin T Albumin LDL Cholesterol Direct PTH Intact Salicylates Acetaminophen Crossmatch 03/23/19 03/24/19 03/24/19 17:31 01:22 04:20 WBC 12.2 H RBC 3.05 L Hgb 8.3 L Hct 25.9 L MCH 27 L MCHC RDW 18.7 H Lymph % (Auto) [place] % (Auto) Eos % (Auto) Lymph # [place] # Eos # Seg Neutrophils % Seg Neuts % (Manual) Lymphocytes % (Manual) Eosinophils % (Manual) Seg Neutrophils # Lymphocytes # (Manual) Eosinophils # (Manual) PT INR D-Dimer POC ABG pH POC ABG pCO2 POC ABG pO2 ABG pO2 ABG HCO3 ABG Base Excess ABG Hemoglobin Oxyhemoglobin Sodium Potassium Chloride Carbon Dioxide BUN Creatinine Glucose POC Glucose 182 H 113 H Calcium Phosphorus ALT Alkaline Phosphatase Total Creatine Kinase CK-MB (CK-2) Rel Index Troponin T Albumin LDL Cholesterol Direct PTH Intact Salicylates Acetaminophen Crossmatch 03/24/19 03/24/19 03/24/19 04:20 11:59 18:14 WBC RBC Hgb Hct MCH MCHC RDW Lymph % (Auto) [place] % (Auto) Eos % (Auto) Lymph # [place] # Eos # Seg Neutrophils % Seg Neuts % (Manual) Lymphocytes % (Manual) Eosinophils % (Manual) Seg Neutrophils # Lymphocytes # (Manual) Eosinophils # (Manual) PT INR D-Dimer POC ABG pH POC ABG pCO2 POC ABG pO2 ABG pO2 ABG HCO3 ABG Base Excess ABG Hemoglobin Oxyhemoglobin Sodium Potassium Chloride 94.8 L Carbon Dioxide 32 H BUN 53 H Creatinine 2.3 H Glucose POC Glucose 163 H 134 H Calcium Phosphorus ALT Alkaline Phosphatase Total Creatine Kinase CK-MB (CK-2) Rel Index Troponin T Albumin LDL Cholesterol Direct PTH Intact Salicylates Acetaminophen Crossmatch 03/24/19 03/25/19 03/25/19 23:15 05:52 12:02 WBC RBC Hgb Hct MCH MCHC RDW Lymph % (Auto) [place] % (Auto) Eos % (Auto) Lymph # [place] # Eos # Seg Neutrophils % Seg Neuts % (Manual) Lymphocytes % (Manual) Eosinophils % (Manual) Seg Neutrophils # Lymphocytes # (Manual) Eosinophils # (Manual) PT INR D-Dimer POC ABG pH POC ABG pCO2 POC ABG pO2 ABG pO2 ABG HCO3 ABG Base Excess ABG Hemoglobin Oxyhemoglobin Sodium Potassium Chloride Carbon Dioxide BUN Creatinine Glucose POC Glucose 129 H 123 H 125 H Calcium Phosphorus ALT Alkaline Phosphatase Total Creatine Kinase CK-MB (CK-2) Rel Index Troponin T Albumin LDL Cholesterol Direct PTH Intact Salicylates Acetaminophen Crossmatch 03/25/19 03/26/19 03/26/19 17:27 00:30 05:35 WBC RBC 3.01 L Hgb 8.1 L Hct 25.7 L MCH 27 L MCHC RDW 19.2 H Lymph % (Auto) 11.4 L [place] % (Auto) Eos % (Auto) 8.0 H Lymph # 1.0 L [place] # Eos # 0.7 H Seg Neutrophils % 73.9 H Seg Neuts % (Manual) Lymphocytes % (Manual) Eosinophils % (Manual) Seg Neutrophils # Lymphocytes # (Manual) Eosinophils # (Manual) PT INR D-Dimer POC ABG pH POC ABG pCO2 POC ABG pO2 ABG pO2 ABG HCO3 ABG Base Excess ABG Hemoglobin Oxyhemoglobin Sodium Potassium Chloride Carbon Dioxide BUN Creatinine Glucose POC Glucose 130 H 129 H Calcium Phosphorus ALT Alkaline Phosphatase Total Creatine Kinase CK-MB (CK-2) Rel Index Troponin T Albumin LDL Cholesterol Direct PTH Intact Salicylates Acetaminophen Crossmatch 03/26/19 03/26/19 03/26/19 05:35 05:45 12:16 WBC RBC Hgb Hct MCH MCHC RDW Lymph % (Auto) [place] % (Auto) Eos % (Auto) Lymph # [place] # Eos # Seg Neutrophils % Seg Neuts % (Manual) Lymphocytes % (Manual) Eosinophils % (Manual) Seg Neutrophils # Lymphocytes # (Manual) Eosinophils # (Manual) PT INR D-Dimer POC ABG pH POC ABG pCO2 POC ABG pO2 ABG pO2 ABG HCO3 ABG Base Excess ABG Hemoglobin Oxyhemoglobin Sodium Potassium Chloride 94.9 L Carbon Dioxide 31 H BUN 44 H Creatinine 2.0 H Glucose POC Glucose 118 H 107 H Calcium Phosphorus ALT Alkaline Phosphatase Total Creatine Kinase CK-MB (CK-2) Rel Index Troponin T Albumin LDL Cholesterol Direct PTH Intact Salicylates Acetaminophen Crossmatch 03/26/19 03/27/19 03/27/19 17:56 00:36 05:37 WBC RBC Hgb Hct MCH MCHC RDW Lymph % (Auto) [place] % (Auto) Eos % (Auto) Lymph # [place] # Eos # Seg Neutrophils % Seg Neuts % (Manual) Lymphocytes % (Manual) Eosinophils % (Manual) Seg Neutrophils # Lymphocytes # (Manual) Eosinophils # (Manual) PT INR D-Dimer POC ABG pH POC ABG pCO2 POC ABG pO2 ABG pO2 ABG HCO3 ABG Base Excess ABG Hemoglobin Oxyhemoglobin Sodium Potassium Chloride Carbon Dioxide BUN Creatinine Glucose POC Glucose 107 H 110 H 122 H Calcium Phosphorus ALT Alkaline Phosphatase Total Creatine Kinase CK-MB (CK-2) Rel Index Troponin T Albumin LDL Cholesterol Direct PTH Intact Salicylates Acetaminophen Crossmatch
--- NOTE | 2019-03-27 15:19 | Progress Note ---
Assessment and Plan Assessment and plan: Acute respiratory failure on mechanical ventilator >96 hrs Extubated ; history of tracheostomy on T piece Current management , nebulizers, Currently on trach/peg placed on 03/03. Now off vent, cont oxygen supplement, improving, on t piece, nebulizers, pulmonary critical following acute on chronic systolic CHF/ Acute pulmonary edema, HD per schedule Dilated CMP, EF 35-40% Continue diuresis, supportive care Acute metabolic encephalopathy, resolved, has baseline Dementia. --ESRD on hemodialysis per schedule nephrology following --Bilateral pleural effusions improved with HD --Permanent atrial fibrillation and flutter and hypercoaguable state Not on anticoagulation because of anemia thrombocytopenia rate control meds optimized --Diabetes mellitus type 2 Accu-Chek sliding scale coverage Insulin as needed --NSTEMI type 2 , Cardiology following --Schizophrenia:stable --Legally blind, supportive care --hypertension, Monitor BP,'s adjust medications as needed --Hypokalemia; corrected --Pulmonary hypertension; continue current management --Dysphagia s/p PEG tube; PEG tubes per protocol --Sacral decub ulcer; Wound care --Severe malnutrition /hypoalbuminemia with FTT: 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, 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 following PEG placed on 01/02/19 --Multiple decubiti, different stages , s/ p colostomy Left 5th finger, stage 4 pressure ulcer Left heel, deep tissue injury Sacrum, stage 4 pressure ulcer POA Continue wound care --History of sacral osteomyelitis and LE ulcers Completed Antibiotics, contact isolation for ESBL Klebsiella pneumonia on wound culture 01/02/19 --Anemia of chronic disease s/p 1 unit of prbc , stable --RUL atelectasis, probably mucous plugging --DVT prophylaxis; Lovenox --Full code status --Very poor prognosis Dispo; Awaiting SNF placement , difficult to place ,unable to find any NH to take patient. inpatient hospice was recommended, but family is not agreeable at this time. family meeting and ethic consult as needed The high probability of a clinically significant, sudden or life threatening deterioration of the [pulmonary, neuro, renal] system(s) required my full and direct attention, intervention and personal management. The aggregate critical care time was [31] minutes. This time is in addition to time spent performing reported procedures but includes the following: [x] Data Review and interpretation [x] Patient assessment and monitoring of vital signs [x] Documentation [x] Medication orders and management History Interval history: Patient is 63-year-old -[place] male patient from [facility] with multiple co-morbidities including blindness, CVA, CHF, PPM/ICD, loop recorder since 2012 that is MRI compatible, IDDM type 2, sepsis left foot ulcer, afib, ESRD with complications on HD TTS, hypertension, AOCD and GERD who presented to the ED with hypotensive after intubation in the emergency room. diagnosed with fluid overload, pleural effusion. Patient has had recurrent admission in the hospital for similar reason and was recently discharged from the hospital following treatment of Severe Sepsis due to Necrotizing Unstagable sacral decubitus ulcer with ostemomylitis, has received multiple courses of broad spectrum abx. Acute hypoxic respiratory failure, status post intubation and ventilatory support, now off vent, on T-piece Hospitalist Physical - Constitutional Vitals: Temp Pulse Resp BP Pulse Ox 97.6 F 111 H 21 128/59 100 03/27/19 11:25 03/27/19 13:00 03/27/19 13:00 03/27/19 13:00 03/27/19 13:00 General appearance: Present: no acute distress, well-nourished, other (tracheostomy on T piece) - EENT Eyes: Present: PERRL, EOM intact ENT: hearing intact, clear oral mucosa, dentition normal - Neck Neck: Present: supple, normal ROM - Respiratory Respiratory effort: normal Respiratory: bilateral: CTA - Cardiovascular Rhythm: regular Heart Sounds: Present: S1 & S2. Absent: gallop, rub - Extremities Extremities: no ischemia, No edema, Full ROM - Abdominal General gastrointestinal: soft, non-tender, non-distended, normal bowel sounds - Integumentary Integumentary: Present: clear, warm, dry - Neurologic Neurologic: CNII-XII intact, moves all extremities Results - Labs CBC & Chem 7: 03/26/19 05:35 03/26/19 05:35 Labs: Laboratory Last Values WBC 8.8 K/mm3 (4.5-11.0) 03/26/19 05:35 RBC 3.01 M/mm3 (3.65-5.03) L 03/26/19 05:35 Hgb 8.1 gm/dl (11.8-15.2) L 03/26/19 05:35 Hct 25.7 % (35.5-45.6) L 03/26/19 05:35 MCV 85 fl (84-94) 03/26/19 05:35 MCH 27 pg (28-32) L 03/26/19 05:35 MCHC 32 % (32-34) 03/26/19 05:35 RDW 19.2 % (13.2-15.2) H 03/26/19 05:35 Plt Count 352 K/mm3 (140-440) 03/26/19 05:35 Lymph % (Auto) 11.4 % (13.4-35.0) L 03/26/19 05:35 Mathews % (Auto) 5.9 % (0.0-7.3) 03/26/19 05:35 Eos % (Auto) 8.0 % (0.0-4.3) H 03/26/19 05:35 Baso % (Auto) 0.8 % (0.0-1.8) 03/26/19 05:35 Lymph # 1.0 K/mm3 (1.2-5.4) L 03/26/19 05:35 Mathews # 0.5 K/mm3 (0.0-0.8) 03/26/19 05:35 Eos # 0.7 K/mm3 (0.0-0.4) H 03/26/19 05:35 Baso # 0.1 K/mm3 (0.0-0.1) 03/26/19 05:35 Add Manual Diff Complete 03/21/19 06:30 Total Counted 100 03/21/19 06:30 Seg Neutrophils % 73.9 % (40.0-70.0) H 03/26/19 05:35 Seg Neuts % (Manual) 81.0 % (40.0-70.0) H 03/21/19 06:30 0 % 03/21/19 06:30 8.0 % (13.4-35.0) L 03/21/19 06:30 Reactive Lymphs % (Man) 0 % 03/21/19 06:30 1.0 % (0.0-7.3) 03/21/19 06:30 8.0 % (0.0-4.3) H 03/21/19 06:30 1.0 % (0.0-1.8) 03/21/19 06:30 1.0 % 03/21/19 06:30 0 % 03/21/19 06:30 0 % 03/21/19 06:30 0 % 03/21/19 06:30 Nucleated RBC % Not Reportable 03/21/19 06:30 Seg Neutrophils # 6.5 K/mm3 (1.8-7.7) 03/26/19 05:35 Seg Neutrophils # Man 6.7 K/mm3 (1.8-7.7) 03/21/19 06:30 Band Neutrophils # 0.0 K/mm3 03/21/19 06:30 0.7 K/mm3 (1.2-5.4) L 03/21/19 06:30 Abs React Lymphs (Man) 0.0 K/mm3 03/21/19 06:30 0.1 K/mm3 (0.0-0.8) 03/21/19 06:30 0.7 K/mm3 (0.0-0.4) H 03/21/19 06:30 0.1 K/mm3 (0.0-0.1) 03/21/19 06:30 0.1 K/mm3 03/21/19 06:30 0.0 K/mm3 03/21/19 06:30 0.0 K/mm3 03/21/19 06:30 Blast Cells # 0.0 K/mm3 03/21/19 06:30 WBC Morphology Not Reportable 03/21/19 06:30 Hypersegmented Neuts Not Reportable 03/21/19 06:30 Hyposegmented Neuts Not Reportable 03/21/19 06:30 Hypogranular Neuts Not Reportable 03/21/19 06:30 Not Reportable 03/21/19 06:30 Not Reportable 03/21/19 06:30 Not Reportable 03/21/19 06:30 Not Reportable 03/21/19 06:30 Not Reportable 03/21/19 06:30 Not Reportable 03/21/19 06:30 Consistent w auto 03/21/19 06:30 Not Reportable 03/21/19 06:30 Plt Clumps, EDTA Not Reportable 03/21/19 06:30 Not Reportable 03/21/19 06:30 Not Reportable 03/21/19 06:30 Not Reportable 03/21/19 06:30 Plt Morphology Comment Not Reportable 03/21/19 06:30 RBC Morphology Not Reportable 03/21/19 06:30 Dimorphic RBCs Not Reportable 03/21/19 06:30 Not Reportable 03/21/19 06:30 Few 03/21/19 06:30 Few 03/21/19 06:30 Few 03/21/19 06:30 Not Reportable 03/21/19 06:30 Not Reportable 03/21/19 06:30 Not Reportable 03/21/19 06:30 Not Reportable 03/21/19 06:30 Not Reportable 03/21/19 06:30 1+ 03/21/19 06:30 Not Reportable 03/21/19 06:30 Few 03/21/19 06:30 Not Reportable 03/21/19 06:30 Not Reportable 03/21/19 06:30 Not Reportable 03/21/19 06:30 Not Reportable 03/21/19 06:30 Not Reportable 03/21/19 06:30 Not Reportable 03/21/19 06:30 Not Reportable 03/21/19 06:30 Acanthocytes (Spur) Not Reportable 03/21/19 06:30 Rouleaux Not Reportable 03/21/19 06:30 Not Reportable 03/21/19 06:30 Not Reportable 03/21/19 06:30 Not Reportable 03/21/19 06:30 Not Reportable 03/21/19 06:30 Hem Pathologist Commnt No 03/21/19 06:30 PT 16.3 Sec. (12.2-14.9) H 03/01/19 09:39 INR 1.35 (0.87-1.13) H 03/01/19 09:39 APTT 33.7 Sec. (24.2-36.6) 02/21/19 18:30 2987.82 ng/mlDDU (0-234) H 02/22/19 05:54 POC ABG pH 7.510 (7.35-7.45) H 03/18/19 06:38 ABG pH 7.424 pH Units (7.350-7.450) 03/19/19 04:23 POC ABG pCO2 38.9 (35-45) 03/18/19 06:38 ABG pCO2 48.0 mm Hg 03/19/19 04:23 POC ABG pO2 164 (80-105) H 03/18/19 06:38 ABG pO2 78.3 mm Hg (80.0-90.0) L 03/19/19 04:23 POC ABG HCO3 31.0 (22-26 mml/L) 03/18/19 06:38 ABG HCO3 30.7 mmol/L (20.0-26.0) H 03/19/19 04:23 POC ABG Total CO2 32 (23-27mmol/L) 03/18/19 06:38 POC ABG O2 Sat 100 03/18/19 06:38 ABG O2 Saturation 97.0 % (95.0-99.0) 03/19/19 04:23 ABG O2 Content 7.9 (0.0-44) 03/19/19 04:23 POC ABG Base Excess 8 ((-2) - (+3)mmol/L) 03/18/19 06:38 ABG Base Excess 5.8 mmol/L (-2.0-3.0) H 03/19/19 04:23 ABG Hemoglobin 5.8 gm/dl (14.0-18.0) L 03/19/19 04:23 ABG Carboxyhemoglobin 2.0 % (0.0-5.0) 03/19/19 04:23 ABG Methemoglobin 0.4 % (0.0-1.5) 03/19/19 04:23 94.6 % (95.0-99.0) L 03/19/19 04:23 35 % 03/19/19 04:23 Sodium 139 mmol/L (137-145) 03/26/19 05:35 Potassium 4.6 mmol/L (3.6-5.0) 03/26/19 05:35 Chloride 94.9 mmol/L (98-107) L 03/26/19 05:35 Carbon Dioxide 31 mmol/L (22-30) H 03/26/19 05:35 18 mmol/L 03/26/19 05:35 BUN 44 mg/dL (9-20) H 03/26/19 05:35 2.0 mg/dL (0.8-1.5) H 03/26/19 05:35 Estimated GFR 41 ml/min 03/26/19 05:35 22 % 03/26/19 05:35 Glucose 96 mg/dL (75-100) 03/26/19 05:35 POC Glucose 120 (70-105) H 03/27/19 11:22 Lactic Acid 1.00 mmol/L (0.7-2.0) 02/21/19 20:58 Calcium 10.1 mg/dL (8.4-10.2) 03/26/19 05:35 Phosphorus 3.10 mg/dL (2.5-4.5) 03/15/19 04:38 Magnesium 2.00 mg/dL (1.7-2.3) 03/21/19 05:00 0.30 mg/dL (0.1-1.2) 03/21/19 05:00 AST 23 units/L (5-40) 03/21/19 05:00 ALT 18 units/L (7-56) 03/21/19 05:00 212 units/L (35-129) H 03/21/19 05:00 28.0 umol/L (25-60) 02/21/19 20:04 64 units/L (55-170) 02/22/19 03:42 CK-MB (CK-2) 3.7 ng/mL (0.0-4.0) 02/22/19 03:42 CK-MB (CK-2) Rel Index 5.7 (0-4) H 02/22/19 03:42 0.193 ng/mL (0.00-0.029) H* 02/22/19 03:42 6.7 g/dL (6.3-8.2) 03/21/19 05:00 2.2 g/dL (3.9-5) L 03/21/19 05:00 0.5 % 03/21/19 05:00 Triglycerides 51 mg/dL (2-149) 02/21/19 18:30 Cholesterol 82 mg/dL (50-199) 02/21/19 18:30 36 mg/dL (50-130) L 02/21/19 18:30 40 mg/dL (40-59) 02/21/19 18:30 2.05 % 02/21/19 18:30 TSH 2.760 mlU/mL (0.270-4.200) 02/21/19 20:04 PTH Intact 267.6 pg/mL (15-65) H 03/02/19 05:15 Salicylates < 0.3 mg/dL (2.8-20.0) L 02/21/19 20:04 Acetaminophen < 5.0 ug/mL (10.0-30.0) L 02/21/19 20:04 Hepatitis A IgM Ab Non-reactive (NonReactive) 02/23/19 11:20 Hep Bs Antigen Non-reactive (Negative) 02/23/19 11:20 Hep B Core IgM Ab Non-reactive (NonReactive) 02/23/19 11:20 Non-reactive (NonReactive) 02/23/19 11:20 Blood Type O POSITIVE 03/22/19 08:48 Antibody Screen Negative 03/22/19 08:48 Crossmatch See Detail 03/22/19 08:48 Active Medications - Current Medications Current Medications: Generic Name Dose Route Start Last Admin Trade Name Freq PRN Reason Stop Dose Admin Albuterol/Ipratropium 1 ampul 02/24/19 20:00 03/27/19 14:59 Duoneb *Not For Prn Use* IH 1 ampul TIDRT SANCHEZ Administration Lipase/Protease/Amylase 1 each 03/05/19 14:04 Pancreazkaren Barrientos 10,500 Unit FEEDTUBE PRN PRN For Clogged Feeding Tube Epoetin Solitario 20,000 unit 03/24/19 11:17 Procrit IV UMA PRN hemodialysis Famotidine 20 mg 02/23/19 10:00 03/27/19 09:26 Pepcid PO 20 mg DAILY SANCHEZ Administration Heparin Sodium (Porcine) 5,000 unit 03/04/19 22:00 03/27/19 09:30 Heparin SUB-Q 5,000 unit Q12HR SANCHEZ Administration Hydrophilic Ointment 1 applic 02/21/19 18:24 03/05/19 08:16 Vaseline Lip Therapy TP 1 applic Q2HR PRN Administration Dry Lips Sodium Chloride 100 mls @ 999 mls/hr 02/26/19 09:00 Nacl 0.9% IV UMA PRN Hypotension Norepinephrine 8 mg/ Sodium 250 mls @ 3.75 mls/hr 03/18/19 13:00 03/19/19 09:17 Chloride IV 0 mcg/min TITR SANCHEZ 0 mls/hr Titration Protocol 2 MCG/MIN Insulin Human Regular 0 units 02/26/19 12:00 03/27/19 11:43 Humulin R SUB-Q Not Given Q6HR SANCHEZ Protocol Metoprolol Tartrate 2.5 mg 02/28/19 12:06 03/15/19 05:15 Lopressor IV 2.5 mg Q4HR PRN Administration Tachycardia Multi-Ingred Cream/Lotion/Oil/Oint 1 applic 02/21/19 18:24 Artificial Tears Ophth Oint OU Q4HR PRN Dry Eye(s) Risperidone 1 mg 02/25/19 13:00 03/27/19 09:26 Risperdal PO 1 mg DAILY SANCHEZ Administration Scopolamine 1 each 03/13/19 04:00 03/25/19 03:54 Transderm-Scop TD 1 each Q3D SANCHEZ Administration Sertraline HCl 100 mg 02/25/19 13:00 03/27/19 09:26 Zoloft PO 100 mg DAILY SANCHEZ Administration Simple Syrup 15 ml 03/05/19 14:04 Simple Syrup FEEDTUBE PRN PRN Hypoglycemia Simple Syrup 30 ml 03/05/19 14:04 Simple Syrup FEEDTUBE PRN PRN Hypoglycemia Sodium Bicarbonate 325 mg 03/05/19 14:04 Sodium Bicarbonate FEEDTUBE PRN PRN For Clogged Feeding Tube Tramadol HCl 50 mg 03/05/19 10:08 03/18/19 04:38 Ultram PO 50 mg Q6H PRN Administration Pain, Moderate (4-6) Trimethoprim/Sulfamethoxazole 160 mg 03/19/19 15:00 03/27/19 09:26 Bactrim 200-40 Mg/5 Ml PO 03/28/19 23:59 160 mg Q24HR SANCHEZ Administration Nutrition/Malnutrition Assess - Dietary Evaluation Nutrition/Malnutrition Findings: Nutrition Notes Start: 02/22/19 12:51 Freq: Status: Active Protocol: Document 03/27/19 14:55 LM (Rec: 03/27/19 15:00 LM [id number]) Nutrition Notes Initial or Follow up Reassessment Current Diagnosis Diabetes,Hypertension Other Pertinent Diagnosis Sacral PU, ESRD on HD (T/Thurs /Sat), Schizophrenia,Blind in L eye,S/P trach Current Diet Nepro with Carbsteady 1.8 at 50 ml/hr Labs/Tests Reviewed Pertinent Medications Humulin Height 5 ft 10 in Weight 74.7 kg Isabella Body Weight (kg) 75.45 BMI 23.6 Subjective/Other Information Vital AF running at 70 ml/hr. Contacted RN about TF change to Nepro at 50 ml/hr. Percent of energy/protein needs met: 100%/100% Burn Absent Trauma Absent #2 Nutrition Diagnosis Increased nutrient needs ( specify in comment below) Diagnosis Progress(for reassessment Continues documentation) #1 Nutrition Diagnosis Inadequate oral intake Diagnosis Progress(for reassessment Continues documentation) Is patient on ventilator? No Kcal/Kg value to use for calculation 30 Approximate Energy Requirements Using 2241 kcal/Kg Calculation Used for Recommendations Kcal/kg Additional Notes Protein Needs: 90-112g (1.2-1. 5g/kg) Fluid Needs: 1-1.5 L/day Nutrition Intervention Change Diet Order: Continue TF Nutrition Support: Change to Nepro with Carbsteady 1.8 at 50 ml/hr Flush 200 ml q4hr Kcal 2,160 Protein (gm) 97 Fluid (mL) 872 Add Supplement/Snack (indicate name/kcal Abhilash BID /protein ) Provides kCal: 190 Provides Protein (gm) 5 Goal #1 TF tolerance Goal #2 Continue to meet at least 80% of calorie and protein needs via TF Anticipated Discharge Needs: TF Follow-Up By: 03/28/19 Additional Comments F/U for new TF rate/tolerance, weight
--- NOTE | 2019-03-27 15:42 | Progress Note ---
Assessment and Plan Assessment: * End stage renal disease (outpatient TTS schedule) * Acute hypoxic respiratory failure on mechanical ventilation * Atrial fibrillation * History of CVA * Anemia secondary to ESRD * Secondary hyperparathyroidism Plan * Continue HD MWF schedule for now while inpatient * UF as tolerated * AVG in use. Appreciate vascular assistance to remove Permacath * Empiric abx per ID/primary team * Nutrition per primary team * Dose medications for renal function * Epogen TID Overall prognosis remains poor; will continue to follow for ESRD needs while inpatient. Subjective Date of service: 03/27/19 Principal diagnosis: respiratory failure Interval history: no acute issues noted overnight. patient not able to verbalize any issues due to mental status. no recent issues noted per HD nurses Objective - Exam Narrative Exam: General appearance: chronically ill, intubated, frail EENT: normocephalic Neck: ETT in place Respiratory: coarse mechanical breath sounds bilaterally Cardiology: regular, S1S2, no edema Gastrointestinal: PEG and colostomy noted Integumentary: warm and dry Psychiatric: unable to assess - Vital Signs Vital signs: Vital Signs - 12hr 03/27/19 03/27/19 03/27/19 04:00 05:00 06:00 Temperature 97 F L Pulse Rate 93 H 99 H 101 H Pulse Rate [ Anterior Bilateral Throughout] Pulse Rate [ 113 H Brachial] Pulse Rate [ From Monitor] Respiratory 16 21 16 Rate Respiratory Rate [Anterior Bilateral Throughout] Blood Pressure 100/56 104/60 109/65 O2 Sat by Pulse 100 100 99 Oximetry 03/27/19 03/27/19 03/27/19 07:00 07:36 08:00 Temperature 98.5 F Pulse Rate 108 H 106 H Pulse Rate [ Anterior Bilateral Throughout] Pulse Rate [ Brachial] Pulse Rate [ 106 H From Monitor] Respiratory 22 17 Rate Respiratory Rate [Anterior Bilateral Throughout] Blood Pressure 110/69 120/72 O2 Sat by Pulse 98 100 Oximetry 03/27/19 03/27/19 03/27/19 08:25 09:00 10:00 Temperature Pulse Rate 116 H 113 H Pulse Rate [ 116 H Anterior Bilateral Throughout] Pulse Rate [ Brachial] Pulse Rate [ From Monitor] Respiratory 20 27 H Rate Respiratory 16 Rate [Anterior Bilateral Throughout] Blood Pressure 130/70 114/63 O2 Sat by Pulse 99 100 Oximetry 03/27/19 03/27/19 03/27/19 11:00 11:25 11:30 Temperature 97.6 F Pulse Rate 115 H Pulse Rate [ Anterior Bilateral Throughout] Pulse Rate [ Brachial] Pulse Rate [ 114 H From Monitor] Respiratory 20 22 Rate Respiratory Rate [Anterior Bilateral Throughout] Blood Pressure 118/66 O2 Sat by Pulse 98 98 Oximetry 03/27/19 03/27/19 12:00 13:00 Temperature Pulse Rate 111 H 111 H Pulse Rate [ Anterior Bilateral Throughout] Pulse Rate [ Brachial] Pulse Rate [ From Monitor] Respiratory 18 21 Rate Respiratory Rate [Anterior Bilateral Throughout] Blood Pressure 118/66 128/59 O2 Sat by Pulse 98 100 Oximetry - Lab 03/26/19 05:35 03/26/19 05:35 Most recent lab results ABG pH 7.424 pH Units (7.350-7.450) 03/19/19 04:23 ABG pCO2 48.0 mm Hg 03/19/19 04:23 ABG pO2 78.3 mm Hg (80.0-90.0) L 03/19/19 04:23 ABG HCO3 30.7 mmol/L (20.0-26.0) H 03/19/19 04:23 ABG O2 Saturation 97.0 % (95.0-99.0) 03/19/19 04:23 Calcium 10.1 mg/dL (8.4-10.2) 03/26/19 05:35 Phosphorus 3.10 mg/dL (2.5-4.5) 03/15/19 04:38 Magnesium 2.00 mg/dL (1.7-2.3) 03/21/19 05:00 Medications & Allergies - Medications Allergies/Adverse Reactions: Allergies haloperidol [From Haldol] Adverse Reaction (Verified 03/13/18 12:10) Unknown haloperidol lactate [From Haldol] Adverse Reaction (Verified 03/13/18 12:10) Unknown Home Medications: Home Medications Medication Instructions Recorded Confirmed Last Taken Type risperiDONE [RisperDAL] 1 mg PO QAM 03/13/18 02/21/19 Unknown History Sertraline [Zoloft] 100 mg PO QDAY 08/26/18 02/21/19 Unknown History Polyethylene Glycol 3350 [Miralax 17 gm PO QDAY #30 packet 11/05/18 02/21/19 Unknown Rx 3350] Aspirin EC [Halfprin EC] 81 mg PO DAILY #30 11/19/18 02/21/19 Unknown Rx Docusate Sodium [Colace CAP] 100 mg PO BID #60 11/19/18 02/21/19 Unknown Rx Folic Acid [Folvite] 1 mg PO DAILY #30 tab 11/19/18 02/21/19 Unknown Rx Famotidine [Pepcid] 20 mg PO DAILY tablet 12/08/18 02/21/19 Unknown Rx Gabapentin [Neurontin] 100 mg PO QHS capsule 12/08/18 02/21/19 Unknown Rx Metoprolol [Lopressor TAB] 50 mg PO BID 30 Days tablet 12/08/18 02/21/19 Unknown Rx Sevelamer Carbonate [Renvela] 800 mg PO TIDWM tablet 12/08/18 02/21/19 Unknown Rx hydrALAZINE [Apresoline TAB] 100 mg PO Q8HR #120 tablet 12/08/18 02/21/19 Unknown Rx Acetaminophen [Acetaminophen TAB] 650 mg PO Q12H PRN 12/15/18 02/21/19 Unknown History Glucagon,Human Recombinant 1 mg IJ Q15MIN PRN 12/15/18 02/21/19 Unknown History [Glucagon Emergency Kit] Insulin Aspart [NovoLOG 100 See Protocol SQ QWEEK 12/15/18 02/21/19 Unknown History UNITS/ML VIAL] Active Medications: Generic Name Dose Route Start Last Admin Trade Name Freq PRN Reason Stop Dose Admin Albuterol/Ipratropium 1 ampul 02/24/19 20:00 03/27/19 14:59 Duoneb *Not For Prn Use* IH 1 ampul TIDRT SANCHEZ Administration Lipase/Protease/Amylase 1 each 03/05/19 14:04 Pancrejewel Barrientos 10,500 Unit FEEDTUBE PRN PRN For Clogged Feeding Tube Epoetin Solitario 20,000 unit 03/24/19 11:17 Procrit IV UMA PRN hemodialysis Famotidine 20 mg 02/23/19 10:00 03/27/19 09:26 Pepcid PO 20 mg DAILY SANCHEZ Administration Heparin Sodium (Porcine) 5,000 unit 03/04/19 22:00 03/27/19 09:30 Heparin SUB-Q 5,000 unit Q12HR SANCHEZ Administration Hydrophilic Ointment 1 applic 02/21/19 18:24 03/05/19 08:16 Vaseline Lip Therapy TP 1 applic Q2HR PRN Administration Dry Lips Sodium Chloride 100 mls @ 999 mls/hr 02/26/19 09:00 Nacl 0.9% IV UMA PRN Hypotension Norepinephrine 8 mg/ Sodium 250 mls @ 3.75 mls/hr 03/18/19 13:00 03/19/19 09:17 Chloride IV 0 mcg/min TITR SANCHEZ 0 mls/hr Titration Protocol 2 MCG/MIN Insulin Human Regular 0 units 02/26/19 12:00 03/27/19 11:43 Humulin R SUB-Q Not Given Q6HR SANCHEZ Protocol Metoprolol Tartrate 2.5 mg 02/28/19 12:06 03/15/19 05:15 Lopressor IV 2.5 mg Q4HR PRN Administration Tachycardia Multi-Ingred Cream/Lotion/Oil/Oint 1 applic 02/21/19 18:24 Artificial Tears Ophth Oint OU Q4HR PRN Dry Eye(s) Risperidone 1 mg 02/25/19 13:00 03/27/19 09:26 Risperdal PO 1 mg DAILY SANCHEZ Administration Scopolamine 1 each 03/13/19 04:00 03/25/19 03:54 Transderm-Scop TD 1 each Q3D SANCHEZ Administration Sertraline HCl 100 mg 02/25/19 13:00 03/27/19 09:26 Zoloft PO 100 mg DAILY SANCHEZ Administration Simple Syrup 15 ml 03/05/19 14:04 Simple Syrup FEEDTUBE PRN PRN Hypoglycemia Simple Syrup 30 ml 03/05/19 14:04 Simple Syrup FEEDTUBE PRN PRN Hypoglycemia Sodium Bicarbonate 325 mg 03/05/19 14:04 Sodium Bicarbonate FEEDTUBE PRN PRN For Clogged Feeding Tube Tramadol HCl 50 mg 03/05/19 10:08 03/18/19 04:38 Ultram PO 50 mg Q6H PRN Administration Pain, Moderate (4-6) Trimethoprim/Sulfamethoxazole 160 mg 03/19/19 15:00 03/27/19 09:26 Bactrim 200-40 Mg/5 Ml PO 03/28/19 23:59 160 mg Q24HR SANCHEZ Administration
[2019-03-27] MEDS ORDERED: SODIUM CHLORIDE*PRIMING MACHINE ONLY FOR DIALYSIS MC ONE (15:49)
[2019-03-27] MEDS ORDERED: EPOETIN ALFA 20,000 UNIT/1 ML INJ ONE (20:47)
[2019-03-28] MEDS: INSULIN REGULAR, HUMAN 100 UNITS/1 ML SUB-Q SCH ×4 (00:40→18:15)
[2019-03-28] MEDS: SCOPOLAMINE TRANSDERMAL PATCH 72 HR TD SCH (06:39)
[2019-03-28] MEDS: IPRATROPIUM/ALBUTEROL SULFATE 3 ML AMPUL.NEB IH SCH ×3 (08:34→21:00)
[2019-03-28] MEDS: HEPARIN 5,000 UNIT/1 ML VIAL SUB-Q SCH ×2 (10:10→21:38)
[2019-03-28] MEDS: risperiDONE 1 MG TAB PO SCH (10:10)
[2019-03-28] MEDS: FAMOTIDINE 20 MG TAB PO SCH (10:10)
[2019-03-28] MEDS: SERTRALINE 100 MG TAB PO SCH (10:10)
[2019-03-28] MEDS: SULFAMETHOXAZOLE/TRIMETHOPRIM 200-40 MG/5 ML ORAL LIQD 30 ML PO SCH (10:10)
--- NOTE | 2019-03-28 13:15 | Progress Note ---
Assessment and Plan 63 y/o male with multiple medical issues admitted with altered mental status, acute respiratory failure requiring mechanical ventilation 1. 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 Continue T-piece 3. HD per renal 4. Awaiting placement. Subjective Date of service: 03/28/19 Principal diagnosis: respiratory failure Interval history: No acute events. STable. Transitioned to IMCU. Still no family present Objective Vital Signs - 12hr 03/28/19 03/28/19 03/28/19 01:30 02:00 02:30 Temperature Pulse Rate 82 82 82 Pulse Rate [ Anterior Bilateral Throughout] Pulse Rate [ From Monitor] Respiratory 19 19 18 Rate Respiratory Rate [Anterior Bilateral Throughout] Blood Pressure 98/59 98/54 97/57 O2 Sat by Pulse 100 99 100 Oximetry O2 Sat by Pulse Oximetry [ Assessment] 03/28/19 03/28/19 03/28/19 03:00 03:30 03:52 Temperature 98.8 F Pulse Rate 86 Pulse Rate [ Anterior Bilateral Throughout] Pulse Rate [ From Monitor] Respiratory 20 Rate Respiratory Rate [Anterior Bilateral Throughout] Blood Pressure 100/60 O2 Sat by Pulse 98 Oximetry O2 Sat by Pulse 100 Oximetry [ Assessment] 03/28/19 03/28/19 03/28/19 04:00 05:00 06:00 Temperature Pulse Rate 101 H 102 H 103 H Pulse Rate [ Anterior Bilateral Throughout] Pulse Rate [ From Monitor] Respiratory 22 21 17 Rate Respiratory Rate [Anterior Bilateral Throughout] Blood Pressure 103/56 102/54 116/64 O2 Sat by Pulse 99 100 100 Oximetry O2 Sat by Pulse Oximetry [ Assessment] 03/28/19 03/28/19 03/28/19 07:00 08:00 08:33 Temperature 98.4 F Pulse Rate 102 H 102 H Pulse Rate [ Anterior Bilateral Throughout] Pulse Rate [ 102 H From Monitor] Respiratory 25 H 23 Rate Respiratory Rate [Anterior Bilateral Throughout] Blood Pressure 117/65 108/62 O2 Sat by Pulse 100 100 100 Oximetry O2 Sat by Pulse Oximetry [ Assessment] 03/28/19 03/28/19 03/28/19 08:35 08:56 09:00 Temperature Pulse Rate 102 H Pulse Rate [ 102 H Anterior Bilateral Throughout] Pulse Rate [ From Monitor] Respiratory 24 Rate Respiratory 20 Rate [Anterior Bilateral Throughout] Blood Pressure 116/68 O2 Sat by Pulse 100 Oximetry O2 Sat by Pulse 100 Oximetry [ Assessment] 03/28/19 03/28/19 03/28/19 10:00 11:00 12:00 Temperature 98.1 F Pulse Rate 102 H 102 H 98 H Pulse Rate [ Anterior Bilateral Throughout] Pulse Rate [ 87 From Monitor] Respiratory 21 19 17 Rate Respiratory Rate [Anterior Bilateral Throughout] Blood Pressure 113/64 111/65 96/60 O2 Sat by Pulse 100 100 100 Oximetry O2 Sat by Pulse Oximetry [ Assessment] Constitutional: no acute distress, alert Eyes: non-icteric ENT: oropharynx moist Neck: supple Effort: normal Ascultation: Bilateral: diminished breath sounds, other (coarse BS bilaterally) Percussion: Bilateral: not dull Cardiovascular: other (tachy, RR; no mrg) Gastrointestinal: normoactive bowel sounds, soft, non-tender, non-distended, other (ostomy in place, brown stool) Extremities: no cyanosis, no edema, pink and warm Neurologic: other (mild weakness LUE, o/w nonfocal) Psychiatric: other (unable to assess) CBC and BMP: 03/26/19 05:35 03/26/19 05:35 ABG, PT/INR, D-dimer: ABG POC ABG pH 7.510 (7.35-7.45) H 03/18/19 06:38 ABG pH 7.424 pH Units (7.350-7.450) 03/19/19 04:23 POC ABG pCO2 38.9 (35-45) 03/18/19 06:38 ABG pCO2 48.0 mm Hg 03/19/19 04:23 POC ABG pO2 164 (80-105) H 03/18/19 06:38 ABG pO2 78.3 mm Hg (80.0-90.0) L 03/19/19 04:23 POC ABG HCO3 31.0 (22-26 mml/L) 03/18/19 06:38 POC ABG Total CO2 32 (23-27mmol/L) 03/18/19 06:38 POC ABG O2 Sat 100 03/18/19 06:38 ABG O2 Saturation 97.0 % (95.0-99.0) 03/19/19 04:23 PT/INR, D-dimer PT 16.3 Sec. (12.2-14.9) H 03/01/19 09:39 INR 1.35 (0.87-1.13) H 03/01/19 09:39 2987.82 ng/mlDDU (0-234) H 02/22/19 05:54 Abnormal lab findings: Abnormal Labs 02/21/19 02/21/19 02/21/19 18:30 18:30 18:30 WBC RBC 3.26 L Hgb 8.8 L Hct 29.0 L MCH 27 L MCHC 30 L RDW 19.1 H Lymph % (Auto) 6.1 L Frio % (Auto) Eos % (Auto) Lymph # 0.4 L Frio # Eos # Seg Neutrophils % 86.2 H Seg Neuts % (Manual) Lymphocytes % (Manual) Eosinophils % (Manual) Seg Neutrophils # Lymphocytes # (Manual) Eosinophils # (Manual) PT INR D-Dimer POC ABG pH POC ABG pCO2 POC ABG pO2 ABG pO2 ABG HCO3 ABG Base Excess ABG Hemoglobin Oxyhemoglobin Sodium 133 L Potassium 3.3 L Chloride 93.1 L Carbon Dioxide 33 H BUN Creatinine Glucose 161 H POC Glucose Calcium Phosphorus ALT Alkaline Phosphatase 136 H Total Creatine Kinase 37 L CK-MB (CK-2) Rel Index Troponin T 0.192 H* Albumin 2.4 L LDL Cholesterol Direct 36 L PTH Intact Salicylates Acetaminophen Crossmatch 02/21/19 02/21/19 02/21/19 18:42 20:04 20:04 WBC RBC Hgb Hct MCH MCHC RDW Lymph % (Auto) Frio % (Auto) Eos % (Auto) Lymph # Frio # Eos # Seg Neutrophils % Seg Neuts % (Manual) Lymphocytes % (Manual) Eosinophils % (Manual) Seg Neutrophils # Lymphocytes # (Manual) Eosinophils # (Manual) PT INR D-Dimer POC ABG pH POC ABG pCO2 56.7 H POC ABG pO2 291 H ABG pO2 ABG HCO3 ABG Base Excess ABG Hemoglobin Oxyhemoglobin Sodium Potassium Chloride Carbon Dioxide BUN Creatinine Glucose POC Glucose Calcium Phosphorus ALT Alkaline Phosphatase Total Creatine Kinase CK-MB (CK-2) Rel Index Troponin T Albumin LDL Cholesterol Direct PTH Intact Salicylates < 0.3 L Acetaminophen < 5.0 L Crossmatch 02/21/19 02/22/19 02/22/19 22:35 03:42 03:42 WBC RBC 3.20 L Hgb 8.8 L Hct 27.6 L MCH MCHC RDW 18.9 H Lymph % (Auto) 7.4 L Frio % (Auto) Eos % (Auto) Lymph # 0.7 L Frio # Eos # Seg Neutrophils % 84.7 H Seg Neuts % (Manual) Lymphocytes % (Manual) Eosinophils % (Manual) Seg Neutrophils # Lymphocytes # (Manual) Eosinophils # (Manual) PT INR D-Dimer POC ABG pH POC ABG pCO2 POC ABG pO2 ABG pO2 ABG HCO3 ABG Base Excess ABG Hemoglobin Oxyhemoglobin Sodium 134 L Potassium 2.6 L* D Chloride Carbon Dioxide BUN Creatinine Glucose POC Glucose Calcium Phosphorus ALT Alkaline Phosphatase Total Creatine Kinase CK-MB (CK-2) Rel Index 5.2 H Troponin T 0.202 H* Albumin LDL Cholesterol Direct PTH Intact Salicylates Acetaminophen Crossmatch 02/22/19 02/22/19 02/22/19 03:42 05:54 09:04 WBC RBC Hgb Hct MCH MCHC RDW Lymph % (Auto) Frio % (Auto) Eos % (Auto) Lymph # Frio # Eos # Seg Neutrophils % Seg Neuts % (Manual) Lymphocytes % (Manual) Eosinophils % (Manual) Seg Neutrophils # Lymphocytes # (Manual) Eosinophils # (Manual) PT INR D-Dimer 2987.82 H POC ABG pH 7.451 H POC ABG pCO2 POC ABG pO2 ABG pO2 ABG HCO3 ABG Base Excess ABG Hemoglobin Oxyhemoglobin Sodium Potassium Chloride Carbon Dioxide BUN Creatinine Glucose POC Glucose Calcium Phosphorus ALT Alkaline Phosphatase Total Creatine Kinase CK-MB (CK-2) Rel Index 5.7 H Troponin T 0.193 H* Albumin LDL Cholesterol Direct PTH Intact Salicylates Acetaminophen Crossmatch 02/22/19 02/22/19 02/23/19 10:36 23:56 00:52 WBC RBC Hgb Hct MCH MCHC RDW Lymph % (Auto) Frio % (Auto) Eos % (Auto) Lymph # Frio # Eos # Seg Neutrophils % Seg Neuts % (Manual) Lymphocytes % (Manual) Eosinophils % (Manual) Seg Neutrophils # Lymphocytes # (Manual) Eosinophils # (Manual) PT INR D-Dimer POC ABG pH POC ABG pCO2 POC ABG pO2 ABG pO2 ABG HCO3 ABG Base Excess ABG Hemoglobin Oxyhemoglobin Sodium Potassium 3.1 L Chloride Carbon Dioxide BUN Creatinine Glucose POC Glucose 58 L 111 H Calcium Phosphorus ALT Alkaline Phosphatase Total Creatine Kinase CK-MB (CK-2) Rel Index Troponin T Albumin LDL Cholesterol Direct PTH Intact Salicylates Acetaminophen Crossmatch 02/23/19 02/23/19 02/23/19 05:00 06:35 14:26 WBC RBC Hgb Hct MCH MCHC RDW Lymph % (Auto) Frio % (Auto) Eos % (Auto) Lymph # Frio # Eos # Seg Neutrophils % Seg Neuts % (Manual) Lymphocytes % (Manual) Eosinophils % (Manual) Seg Neutrophils # Lymphocytes # (Manual) Eosinophils # (Manual) PT INR D-Dimer POC ABG pH POC ABG pCO2 POC ABG pO2 ABG pO2 ABG HCO3 ABG Base Excess ABG Hemoglobin Oxyhemoglobin Sodium 135 L Potassium 3.1 L Chloride Carbon Dioxide BUN 21 H Creatinine 2.0 H Glucose 57 L POC Glucose 64 L 62 L Calcium Phosphorus ALT Alkaline Phosphatase Total Creatine Kinase CK-MB (CK-2) Rel Index Troponin T Albumin LDL Cholesterol Direct PTH Intact Salicylates Acetaminophen Crossmatch 02/24/19 02/24/19 02/24/19 02:11 04:12 04:55 WBC RBC 2.84 L Hgb 7.8 L Hct 24.5 L MCH MCHC RDW 19.5 H Lymph % (Auto) Frio % (Auto) Eos % (Auto) Lymph # Frio # Eos # Seg Neutrophils % Seg Neuts % (Manual) Lymphocytes % (Manual) Eosinophils % (Manual) Seg Neutrophils # Lymphocytes # (Manual) Eosinophils # (Manual) PT INR D-Dimer POC ABG pH 7.511 H POC ABG pCO2 33.9 L POC ABG pO2 62 L ABG pO2 ABG HCO3 ABG Base Excess ABG Hemoglobin Oxyhemoglobin Sodium Potassium Chloride Carbon Dioxide BUN Creatinine Glucose POC Glucose 69 L Calcium Phosphorus ALT Alkaline Phosphatase Total Creatine Kinase CK-MB (CK-2) Rel Index Troponin T Albumin LDL Cholesterol Direct PTH Intact Salicylates Acetaminophen Crossmatch 02/24/19 02/24/19 02/25/19 04:55 05:41 04:45 WBC RBC Hgb Hct MCH MCHC RDW Lymph % (Auto) Frio % (Auto) Eos % (Auto) Lymph # Frio # Eos # Seg Neutrophils % Seg Neuts % (Manual) Lymphocytes % (Manual) Eosinophils % (Manual) Seg Neutrophils # Lymphocytes # (Manual) Eosinophils # (Manual) PT INR D-Dimer POC ABG pH 7.466 H POC ABG pCO2 POC ABG pO2 75 L ABG pO2 ABG HCO3 ABG Base Excess ABG Hemoglobin Oxyhemoglobin Sodium Potassium Chloride Carbon Dioxide BUN Creatinine 1.8 H Glucose 73 L POC Glucose 127 H Calcium Phosphorus ALT Alkaline Phosphatase Total Creatine Kinase CK-MB (CK-2) Rel Index Troponin T Albumin LDL Cholesterol Direct PTH Intact Salicylates Acetaminophen Crossmatch 02/25/19 02/25/19 02/26/19 16:34 21:33 03:45 WBC RBC 2.96 L Hgb 8.0 L Hct 25.8 L MCH 27 L MCHC 31 L RDW 20.0 H Lymph % (Auto) Frio % (Auto) Eos % (Auto) Lymph # Frio # Eos # Seg Neutrophils % Seg Neuts % (Manual) Lymphocytes % (Manual) Eosinophils % (Manual) Seg Neutrophils # Lymphocytes # (Manual) Eosinophils # (Manual) PT INR D-Dimer POC ABG pH POC ABG pCO2 POC ABG pO2 ABG pO2 ABG HCO3 ABG Base Excess ABG Hemoglobin Oxyhemoglobin Sodium Potassium Chloride Carbon Dioxide BUN Creatinine Glucose POC Glucose 141 H 106 H Calcium Phosphorus ALT Alkaline Phosphatase Total Creatine Kinase CK-MB (CK-2) Rel Index Troponin T Albumin LDL Cholesterol Direct PTH Intact Salicylates Acetaminophen Crossmatch 02/26/19 02/26/19 02/26/19 03:45 04:13 07:53 WBC RBC Hgb Hct MCH MCHC RDW Lymph % (Auto) Frio % (Auto) Eos % (Auto) Lymph # Frio # Eos # Seg Neutrophils % Seg Neuts % (Manual) Lymphocytes % (Manual) Eosinophils % (Manual) Seg Neutrophils # Lymphocytes # (Manual) Eosinophils # (Manual) PT INR D-Dimer POC ABG pH 7.470 H POC ABG pCO2 POC ABG pO2 ABG pO2 ABG HCO3 ABG Base Excess ABG Hemoglobin Oxyhemoglobin Sodium Potassium Chloride Carbon Dioxide BUN Creatinine 1.8 H Glucose POC Glucose 110 H Calcium Phosphorus ALT Alkaline Phosphatase Total Creatine Kinase CK-MB (CK-2) Rel Index Troponin T Albumin LDL Cholesterol Direct PTH Intact Salicylates Acetaminophen Crossmatch 02/26/19 02/26/19 02/27/19 11:56 17:43 00:12 WBC RBC Hgb Hct MCH MCHC RDW Lymph % (Auto) Frio % (Auto) Eos % (Auto) Lymph # Frio # Eos # Seg Neutrophils % Seg Neuts % (Manual) Lymphocytes % (Manual) Eosinophils % (Manual) Seg Neutrophils # Lymphocytes # (Manual) Eosinophils # (Manual) PT INR D-Dimer POC ABG pH POC ABG pCO2 POC ABG pO2 ABG pO2 ABG HCO3 ABG Base Excess ABG Hemoglobin Oxyhemoglobin Sodium Potassium Chloride Carbon Dioxide BUN Creatinine Glucose POC Glucose 112 H 127 H 127 H Calcium Phosphorus ALT Alkaline Phosphatase Total Creatine Kinase CK-MB (CK-2) Rel Index Troponin T Albumin LDL Cholesterol Direct PTH Intact Salicylates Acetaminophen Crossmatch 02/27/19 02/27/19 02/27/19 04:35 13:15 18:02 WBC RBC Hgb Hct MCH MCHC RDW Lymph % (Auto) Frio % (Auto) Eos % (Auto) Lymph # Frio # Eos # Seg Neutrophils % Seg Neuts % (Manual) Lymphocytes % (Manual) Eosinophils % (Manual) Seg Neutrophils # Lymphocytes # (Manual) Eosinophils # (Manual) PT INR D-Dimer POC ABG pH 7.483 H POC ABG pCO2 POC ABG pO2 61 L ABG pO2 ABG HCO3 ABG Base Excess ABG Hemoglobin Oxyhemoglobin Sodium Potassium Chloride Carbon Dioxide BUN Creatinine Glucose POC Glucose 143 H 106 H Calcium Phosphorus ALT Alkaline Phosphatase Total Creatine Kinase CK-MB (CK-2) Rel Index Troponin T Albumin LDL Cholesterol Direct PTH Intact Salicylates Acetaminophen Crossmatch 02/28/19 02/28/19 02/28/19 05:50 11:59 17:52 WBC RBC Hgb Hct MCH MCHC RDW Lymph % (Auto) Frio % (Auto) Eos % (Auto) Lymph # Frio # Eos # Seg Neutrophils % Seg Neuts % (Manual) Lymphocytes % (Manual) Eosinophils % (Manual) Seg Neutrophils # Lymphocytes # (Manual) Eosinophils # (Manual) PT INR D-Dimer POC ABG pH POC ABG pCO2 POC ABG pO2 ABG pO2 ABG HCO3 ABG Base Excess ABG Hemoglobin Oxyhemoglobin Sodium Potassium Chloride Carbon Dioxide BUN Creatinine Glucose POC Glucose 134 H 128 H 142 H Calcium Phosphorus ALT Alkaline Phosphatase Total Creatine Kinase CK-MB (CK-2) Rel Index Troponin T Albumin LDL Cholesterol Direct PTH Intact Salicylates Acetaminophen Crossmatch 02/28/19 03/01/19 03/01/19 23:13 05:40 09:39 WBC RBC Hgb Hct MCH MCHC RDW Lymph % (Auto) Frio % (Auto) Eos % (Auto) Lymph # Frio # Eos # Seg Neutrophils % Seg Neuts % (Manual) Lymphocytes % (Manual) Eosinophils % (Manual) Seg Neutrophils # Lymphocytes # (Manual) Eosinophils # (Manual) PT 16.3 H INR 1.35 H D-Dimer POC ABG pH POC ABG pCO2 POC ABG pO2 ABG pO2 ABG HCO3 ABG Base Excess ABG Hemoglobin Oxyhemoglobin Sodium Potassium Chloride Carbon Dioxide BUN Creatinine Glucose POC Glucose 112 H 111 H Calcium Phosphorus ALT Alkaline Phosphatase Total Creatine Kinase CK-MB (CK-2) Rel Index Troponin T Albumin LDL Cholesterol Direct PTH Intact Salicylates Acetaminophen Crossmatch 03/01/19 03/01/19 03/01/19 11:56 13:54 17:59 WBC RBC Hgb Hct MCH MCHC RDW Lymph % (Auto) Frio % (Auto) Eos % (Auto) Lymph # Frio # Eos # Seg Neutrophils % Seg Neuts % (Manual) Lymphocytes % (Manual) Eosinophils % (Manual) Seg Neutrophils # Lymphocytes # (Manual) Eosinophils # (Manual) PT INR D-Dimer POC ABG pH POC ABG pCO2 POC ABG pO2 ABG pO2 ABG HCO3 ABG Base Excess ABG Hemoglobin Oxyhemoglobin Sodium Potassium Chloride Carbon Dioxide BUN 33 H Creatinine 2.8 H D Glucose 176 H POC Glucose 199 H 147 H Calcium Phosphorus ALT Alkaline Phosphatase Total Creatine Kinase CK-MB (CK-2) Rel Index Troponin T Albumin LDL Cholesterol Direct PTH Intact Salicylates Acetaminophen Crossmatch 03/02/19 03/02/19 03/02/19 05:15 05:15 05:15 WBC RBC 2.73 L Hgb 7.4 L Hct 23.0 L MCH 27 L MCHC RDW 19.9 H Lymph % (Auto) Frio % (Auto) 7.9 H Eos % (Auto) 7.6 H Lymph # 1.0 L Frio # Eos # 0.5 H Seg Neutrophils % Seg Neuts % (Manual) Lymphocytes % (Manual) Eosinophils % (Manual) Seg Neutrophils # Lymphocytes # (Manual) Eosinophils # (Manual) PT INR D-Dimer POC ABG pH POC ABG pCO2 POC ABG pO2 ABG pO2 ABG HCO3 ABG Base Excess ABG Hemoglobin Oxyhemoglobin Sodium Potassium Chloride Carbon Dioxide BUN 43 H Creatinine 3.2 H Glucose POC Glucose Calcium Phosphorus 2.30 L ALT Alkaline Phosphatase Total Creatine Kinase CK-MB (CK-2) Rel Index Troponin T Albumin LDL Cholesterol Direct PTH Intact 267.6 H Salicylates Acetaminophen Crossmatch 03/02/19 03/02/19 03/03/19 12:32 18:20 13:30 WBC RBC Hgb Hct MCH MCHC RDW Lymph % (Auto) Frio % (Auto) Eos % (Auto) Lymph # Frio # Eos # Seg Neutrophils % Seg Neuts % (Manual) Lymphocytes % (Manual) Eosinophils % (Manual) Seg Neutrophils # Lymphocytes # (Manual) Eosinophils # (Manual) PT INR D-Dimer POC ABG pH POC ABG pCO2 POC ABG pO2 ABG pO2 ABG HCO3 ABG Base Excess ABG Hemoglobin Oxyhemoglobin Sodium Potassium Chloride 97.3 L Carbon Dioxide BUN 26 H Creatinine 2.2 H Glucose 73 L POC Glucose 111 H 156 H Calcium Phosphorus ALT Alkaline Phosphatase Total Creatine Kinase CK-MB (CK-2) Rel Index Troponin T Albumin LDL Cholesterol Direct PTH Intact Salicylates Acetaminophen Crossmatch 03/04/19 03/04/19 03/04/19 00:02 05:37 05:40 WBC RBC 2.63 L Hgb 7.2 L Hct 22.2 L MCH MCHC RDW 20.2 H Lymph % (Auto) 10.5 L Frio % (Auto) Eos % (Auto) 4.6 H Lymph # 0.7 L Frio # Eos # Seg Neutrophils % 76.9 H Seg Neuts % (Manual) Lymphocytes % (Manual) Eosinophils % (Manual) Seg Neutrophils # Lymphocytes # (Manual) Eosinophils # (Manual) PT INR D-Dimer POC ABG pH POC ABG pCO2 POC ABG pO2 ABG pO2 ABG HCO3 ABG Base Excess ABG Hemoglobin Oxyhemoglobin Sodium Potassium Chloride Carbon Dioxide BUN Creatinine Glucose POC Glucose 136 H 123 H Calcium Phosphorus ALT Alkaline Phosphatase Total Creatine Kinase CK-MB (CK-2) Rel Index Troponin T Albumin LDL Cholesterol Direct PTH Intact Salicylates Acetaminophen Crossmatch 03/04/19 03/04/19 03/04/19 05:40 11:39 23:20 WBC RBC Hgb Hct MCH MCHC RDW Lymph % (Auto) Frio % (Auto) Eos % (Auto) Lymph # Frio # Eos # Seg Neutrophils % Seg Neuts % (Manual) Lymphocytes % (Manual) Eosinophils % (Manual) Seg Neutrophils # Lymphocytes # (Manual) Eosinophils # (Manual) PT INR D-Dimer POC ABG pH POC ABG pCO2 POC ABG pO2 ABG pO2 ABG HCO3 ABG Base Excess ABG Hemoglobin Oxyhemoglobin Sodium Potassium Chloride Carbon Dioxide BUN 34 H Creatinine 2.7 H Glucose 114 H POC Glucose 175 H 151 H Calcium Phosphorus ALT Alkaline Phosphatase Total Creatine Kinase CK-MB (CK-2) Rel Index Troponin T Albumin LDL Cholesterol Direct PTH Intact Salicylates Acetaminophen Crossmatch 03/05/19 03/05/19 03/05/19 05:37 12:08 17:11 WBC RBC Hgb Hct MCH MCHC RDW Lymph % (Auto) Frio % (Auto) Eos % (Auto) Lymph # Frio # Eos # Seg Neutrophils % Seg Neuts % (Manual) Lymphocytes % (Manual) Eosinophils % (Manual) Seg Neutrophils # Lymphocytes # (Manual) Eosinophils # (Manual) PT INR D-Dimer POC ABG pH POC ABG pCO2 POC ABG pO2 ABG pO2 ABG HCO3 ABG Base Excess ABG Hemoglobin Oxyhemoglobin Sodium Potassium Chloride Carbon Dioxide BUN Creatinine Glucose POC Glucose 134 H 135 H 135 H Calcium Phosphorus ALT Alkaline Phosphatase Total Creatine Kinase CK-MB (CK-2) Rel Index Troponin T Albumin LDL Cholesterol Direct PTH Intact Salicylates Acetaminophen Crossmatch 03/06/19 03/06/19 03/06/19 00:16 13:05 18:09 WBC RBC Hgb Hct MCH MCHC RDW Lymph % (Auto) Frio % (Auto) Eos % (Auto) Lymph # Frio # Eos # Seg Neutrophils % Seg Neuts % (Manual) Lymphocytes % (Manual) Eosinophils % (Manual) Seg Neutrophils # Lymphocytes # (Manual) Eosinophils # (Manual) PT INR D-Dimer POC ABG pH POC ABG pCO2 POC ABG pO2 ABG pO2 ABG HCO3 ABG Base Excess ABG Hemoglobin Oxyhemoglobin Sodium Potassium Chloride Carbon Dioxide BUN Creatinine Glucose POC Glucose 117 H 113 H 131 H Calcium Phosphorus ALT Alkaline Phosphatase Total Creatine Kinase CK-MB (CK-2) Rel Index Troponin T Albumin LDL Cholesterol Direct PTH Intact Salicylates Acetaminophen Crossmatch 03/07/19 03/08/19 03/08/19 05:25 05:33 16:00 WBC RBC 2.44 L Hgb 6.6 L Hct 20.8 L MCH 27 L MCHC RDW 19.2 H Lymph % (Auto) Frio % (Auto) Eos % (Auto) 8.6 H Lymph # 0.8 L Frio # Eos # 0.5 H Seg Neutrophils % 70.7 H Seg Neuts % (Manual) Lymphocytes % (Manual) Eosinophils % (Manual) Seg Neutrophils # Lymphocytes # (Manual) Eosinophils # (Manual) PT INR D-Dimer POC ABG pH POC ABG pCO2 POC ABG pO2 ABG pO2 ABG HCO3 ABG Base Excess ABG Hemoglobin Oxyhemoglobin Sodium Potassium Chloride Carbon Dioxide BUN Creatinine Glucose POC Glucose 106 H 108 H Calcium Phosphorus ALT Alkaline Phosphatase Total Creatine Kinase CK-MB (CK-2) Rel Index Troponin T Albumin LDL Cholesterol Direct PTH Intact Salicylates Acetaminophen Crossmatch 03/08/19 03/08/19 03/08/19 16:00 18:38 Unknown WBC RBC Hgb Hct MCH MCHC RDW Lymph % (Auto) Frio % (Auto) Eos % (Auto) Lymph # Frio # Eos # Seg Neutrophils % Seg Neuts % (Manual) Lymphocytes % (Manual) Eosinophils % (Manual) Seg Neutrophils # Lymphocytes # (Manual) Eosinophils # (Manual) PT INR D-Dimer POC ABG pH POC ABG pCO2 POC ABG pO2 ABG pO2 ABG HCO3 ABG Base Excess ABG Hemoglobin Oxyhemoglobin Sodium Potassium 5.4 H D Chloride Carbon Dioxide BUN 47 H Creatinine 2.6 H Glucose POC Glucose 123 H Calcium Phosphorus ALT < 5 L Alkaline Phosphatase Total Creatine Kinase CK-MB (CK-2) Rel Index Troponin T Albumin 2.2 L LDL Cholesterol Direct PTH Intact Salicylates Acetaminophen Crossmatch See Detail 03/09/19 03/09/19 03/09/19 10:48 12:28 13:53 WBC RBC 2.85 L Hgb 7.7 L Hct 24.2 L MCH 27 L MCHC RDW 18.7 H Lymph % (Auto) Frio % (Auto) Eos % (Auto) Lymph # Frio # Eos # Seg Neutrophils % Seg Neuts % (Manual) Lymphocytes % (Manual) Eosinophils % (Manual) Seg Neutrophils # Lymphocytes # (Manual) Eosinophils # (Manual) PT INR D-Dimer POC ABG pH POC ABG pCO2 POC ABG pO2 ABG pO2 ABG HCO3 30.5 H ABG Base Excess 5.6 H ABG Hemoglobin 8.1 L Oxyhemoglobin 93.8 L Sodium Potassium Chloride Carbon Dioxide BUN Creatinine Glucose POC Glucose 114 H Calcium Phosphorus ALT Alkaline Phosphatase Total Creatine Kinase CK-MB (CK-2) Rel Index Troponin T Albumin LDL Cholesterol Direct PTH Intact Salicylates Acetaminophen Crossmatch 03/09/19 03/09/19 03/10/19 17:58 23:53 12:01 WBC RBC Hgb Hct MCH MCHC RDW Lymph % (Auto) Frio % (Auto) Eos % (Auto) Lymph # Frio # Eos # Seg Neutrophils % Seg Neuts % (Manual) Lymphocytes % (Manual) Eosinophils % (Manual) Seg Neutrophils # Lymphocytes # (Manual) Eosinophils # (Manual) PT INR D-Dimer POC ABG pH POC ABG pCO2 POC ABG pO2 ABG pO2 ABG HCO3 ABG Base Excess ABG Hemoglobin Oxyhemoglobin Sodium Potassium Chloride Carbon Dioxide BUN Creatinine Glucose POC Glucose 108 H 128 H 144 H Calcium Phosphorus ALT Alkaline Phosphatase Total Creatine Kinase CK-MB (CK-2) Rel Index Troponin T Albumin LDL Cholesterol Direct PTH Intact Salicylates Acetaminophen Crossmatch 03/10/19 03/11/19 03/11/19 16:50 00:24 05:02 WBC RBC Hgb Hct MCH MCHC RDW Lymph % (Auto) Frio % (Auto) Eos % (Auto) Lymph # Frio # Eos # Seg Neutrophils % Seg Neuts % (Manual) Lymphocytes % (Manual) Eosinophils % (Manual) Seg Neutrophils # Lymphocytes # (Manual) Eosinophils # (Manual) PT INR D-Dimer POC ABG pH POC ABG pCO2 POC ABG pO2 ABG pO2 ABG HCO3 ABG Base Excess ABG Hemoglobin Oxyhemoglobin Sodium Potassium Chloride Carbon Dioxide BUN Creatinine Glucose POC Glucose 147 H 123 H 120 H Calcium Phosphorus ALT Alkaline Phosphatase Total Creatine Kinase CK-MB (CK-2) Rel Index Troponin T Albumin LDL Cholesterol Direct PTH Intact Salicylates Acetaminophen Crossmatch 03/11/19 03/11/19 03/11/19 11:56 12:20 18:37 WBC RBC Hgb Hct MCH MCHC RDW Lymph % (Auto) Frio % (Auto) Eos % (Auto) Lymph # Frio # Eos # Seg Neutrophils % Seg Neuts % (Manual) Lymphocytes % (Manual) Eosinophils % (Manual) Seg Neutrophils # Lymphocytes # (Manual) Eosinophils # (Manual) PT INR D-Dimer POC ABG pH POC ABG pCO2 POC ABG pO2 ABG pO2 ABG HCO3 ABG Base Excess ABG Hemoglobin Oxyhemoglobin Sodium Potassium 5.2 H Chloride Carbon Dioxide BUN Creatinine Glucose POC Glucose 123 H 125 H Calcium Phosphorus ALT Alkaline Phosphatase Total Creatine Kinase CK-MB (CK-2) Rel Index Troponin T Albumin LDL Cholesterol Direct PTH Intact Salicylates Acetaminophen Crossmatch 03/11/19 03/12/19 03/12/19 22:52 12:04 18:25 WBC RBC Hgb Hct MCH MCHC RDW Lymph % (Auto) Frio % (Auto) Eos % (Auto) Lymph # Frio # Eos # Seg Neutrophils % Seg Neuts % (Manual) Lymphocytes % (Manual) Eosinophils % (Manual) Seg Neutrophils # Lymphocytes # (Manual) Eosinophils # (Manual) PT INR D-Dimer POC ABG pH POC ABG pCO2 POC ABG pO2 ABG pO2 ABG HCO3 ABG Base Excess ABG Hemoglobin Oxyhemoglobin Sodium Potassium Chloride Carbon Dioxide BUN Creatinine Glucose POC Glucose 110 H 106 H 118 H Calcium Phosphorus ALT Alkaline Phosphatase Total Creatine Kinase CK-MB (CK-2) Rel Index Troponin T Albumin LDL Cholesterol Direct PTH Intact Salicylates Acetaminophen Crossmatch 03/12/19 03/13/19 03/13/19 23:36 04:38 04:38 WBC RBC 2.95 L Hgb 7.9 L Hct 24.9 L MCH 27 L MCHC RDW 19.9 H Lymph % (Auto) 11.1 L Frio % (Auto) 8.1 H Eos % (Auto) 4.4 H Lymph # 0.9 L Frio # Eos # Seg Neutrophils % 75.4 H Seg Neuts % (Manual) Lymphocytes % (Manual) Eosinophils % (Manual) Seg Neutrophils # Lymphocytes # (Manual) Eosinophils # (Manual) PT INR D-Dimer POC ABG pH POC ABG pCO2 POC ABG pO2 ABG pO2 ABG HCO3 ABG Base Excess ABG Hemoglobin Oxyhemoglobin Sodium 136 L Potassium 5.1 H Chloride 93.8 L Carbon Dioxide BUN 48 H Creatinine 2.7 H Glucose 102 H POC Glucose 115 H Calcium Phosphorus ALT < 5 L Alkaline Phosphatase 143 H Total Creatine Kinase CK-MB (CK-2) Rel Index Troponin T Albumin 2.5 L LDL Cholesterol Direct PTH Intact Salicylates Acetaminophen Crossmatch 03/13/19 03/13/19 03/13/19 05:33 13:37 18:03 WBC RBC Hgb Hct MCH MCHC RDW Lymph % (Auto) Frio % (Auto) Eos % (Auto) Lymph # Frio # Eos # Seg Neutrophils % Seg Neuts % (Manual) Lymphocytes % (Manual) Eosinophils % (Manual) Seg Neutrophils # Lymphocytes # (Manual) Eosinophils # (Manual) PT INR D-Dimer POC ABG pH POC ABG pCO2 POC ABG pO2 ABG pO2 ABG HCO3 ABG Base Excess ABG Hemoglobin Oxyhemoglobin Sodium Potassium Chloride Carbon Dioxide BUN Creatinine Glucose POC Glucose 140 H 150 H 158 H Calcium Phosphorus ALT Alkaline Phosphatase Total Creatine Kinase CK-MB (CK-2) Rel Index Troponin T Albumin LDL Cholesterol Direct PTH Intact Salicylates Acetaminophen Crossmatch 03/13/19 03/14/19 03/14/19 23:32 05:24 12:20 WBC RBC Hgb Hct MCH MCHC RDW Lymph % (Auto) Frio % (Auto) Eos % (Auto) Lymph # Frio # Eos # Seg Neutrophils % Seg Neuts % (Manual) Lymphocytes % (Manual) Eosinophils % (Manual) Seg Neutrophils # Lymphocytes # (Manual) Eosinophils # (Manual) PT INR D-Dimer POC ABG pH POC ABG pCO2 POC ABG pO2 ABG pO2 ABG HCO3 ABG Base Excess ABG Hemoglobin Oxyhemoglobin Sodium Potassium Chloride Carbon Dioxide BUN Creatinine Glucose POC Glucose 162 H 146 H 127 H Calcium Phosphorus ALT Alkaline Phosphatase Total Creatine Kinase CK-MB (CK-2) Rel Index Troponin T Albumin LDL Cholesterol Direct PTH Intact Salicylates Acetaminophen Crossmatch 03/14/19 03/14/19 03/15/19 18:05 23:57 04:38 WBC 12.8 H RBC 3.11 L Hgb 8.1 L Hct 26.5 L MCH 26 L MCHC 31 L RDW 19.7 H Lymph % (Auto) 4.4 L Frio % (Auto) 7.4 H Eos % (Auto) Lymph # 0.6 L Frio # 0.9 H Eos # Seg Neutrophils % 87.3 H Seg Neuts % (Manual) Lymphocytes % (Manual) Eosinophils % (Manual) Seg Neutrophils # 11.2 H Lymphocytes # (Manual) Eosinophils # (Manual) PT INR D-Dimer POC ABG pH POC ABG pCO2 POC ABG pO2 ABG pO2 ABG HCO3 ABG Base Excess ABG Hemoglobin Oxyhemoglobin Sodium Potassium Chloride Carbon Dioxide BUN Creatinine Glucose POC Glucose 142 H 155 H Calcium Phosphorus ALT Alkaline Phosphatase Total Creatine Kinase CK-MB (CK-2) Rel Index Troponin T Albumin LDL Cholesterol Direct PTH Intact Salicylates Acetaminophen Crossmatch 03/15/19 03/15/19 03/15/19 04:38 05:31 11:32 WBC RBC Hgb Hct MCH MCHC RDW Lymph % (Auto) Frio % (Auto) Eos % (Auto) Lymph # Frio # Eos # Seg Neutrophils % Seg Neuts % (Manual) Lymphocytes % (Manual) Eosinophils % (Manual) Seg Neutrophils # Lymphocytes # (Manual) Eosinophils # (Manual) PT INR D-Dimer POC ABG pH POC ABG pCO2 POC ABG pO2 ABG pO2 ABG HCO3 ABG Base Excess ABG Hemoglobin Oxyhemoglobin Sodium 135 L Potassium Chloride 91.9 L Carbon Dioxide BUN 54 H Creatinine 2.8 H Glucose 128 H POC Glucose 160 H 109 H Calcium 11.1 H Phosphorus ALT Alkaline Phosphatase 161 H Total Creatine Kinase CK-MB (CK-2) Rel Index Troponin T Albumin 2.3 L LDL Cholesterol Direct PTH Intact Salicylates Acetaminophen Crossmatch 03/15/19 03/15/19 03/16/19 18:15 23:41 05:40 WBC RBC Hgb Hct MCH MCHC RDW Lymph % (Auto) Frio % (Auto) Eos % (Auto) Lymph # Frio # Eos # Seg Neutrophils % Seg Neuts % (Manual) Lymphocytes % (Manual) Eosinophils % (Manual) Seg Neutrophils # Lymphocytes # (Manual) Eosinophils # (Manual) PT INR D-Dimer POC ABG pH POC ABG pCO2 POC ABG pO2 ABG pO2 ABG HCO3 ABG Base Excess ABG Hemoglobin Oxyhemoglobin Sodium Potassium Chloride Carbon Dioxide BUN Creatinine Glucose POC Glucose 151 H 110 H 163 H Calcium Phosphorus ALT Alkaline Phosphatase Total Creatine Kinase CK-MB (CK-2) Rel Index Troponin T Albumin LDL Cholesterol Direct PTH Intact Salicylates Acetaminophen Crossmatch 03/16/19 03/16/19 03/16/19 11:55 17:04 23:58 WBC RBC Hgb Hct MCH MCHC RDW Lymph % (Auto) Frio % (Auto) Eos % (Auto) Lymph # Frio # Eos # Seg Neutrophils % Seg Neuts % (Manual) Lymphocytes % (Manual) Eosinophils % (Manual) Seg Neutrophils # Lymphocytes # (Manual) Eosinophils # (Manual) PT INR D-Dimer POC ABG pH POC ABG pCO2 POC ABG pO2 ABG pO2 ABG HCO3 ABG Base Excess ABG Hemoglobin Oxyhemoglobin Sodium Potassium Chloride Carbon Dioxide BUN Creatinine Glucose POC Glucose 114 H 147 H 192 H Calcium Phosphorus ALT Alkaline Phosphatase Total Creatine Kinase CK-MB (CK-2) Rel Index Troponin T Albumin LDL Cholesterol Direct PTH Intact Salicylates Acetaminophen Crossmatch 03/17/19 03/17/19 03/17/19 05:53 11:17 17:01 WBC RBC Hgb Hct MCH MCHC RDW Lymph % (Auto) Frio % (Auto) Eos % (Auto) Lymph # Frio # Eos # Seg Neutrophils % Seg Neuts % (Manual) Lymphocytes % (Manual) Eosinophils % (Manual) Seg Neutrophils # Lymphocytes # (Manual) Eosinophils # (Manual) PT INR D-Dimer POC ABG pH POC ABG pCO2 POC ABG pO2 ABG pO2 ABG HCO3 ABG Base Excess ABG Hemoglobin Oxyhemoglobin Sodium Potassium Chloride Carbon Dioxide BUN Creatinine Glucose POC Glucose 151 H 161 H 152 H Calcium Phosphorus ALT Alkaline Phosphatase Total Creatine Kinase CK-MB (CK-2) Rel Index Troponin T Albumin LDL Cholesterol Direct PTH Intact Salicylates Acetaminophen Crossmatch 03/17/19 03/18/19 03/18/19 21:47 04:15 04:44 WBC RBC Hgb Hct MCH MCHC RDW Lymph % (Auto) Frio % (Auto) Eos % (Auto) Lymph # Frio # Eos # Seg Neutrophils % Seg Neuts % (Manual) Lymphocytes % (Manual) Eosinophils % (Manual) Seg Neutrophils # Lymphocytes # (Manual) Eosinophils # (Manual) PT INR D-Dimer POC ABG pH POC ABG pCO2 POC ABG pO2 ABG pO2 102.8 H ABG HCO3 28.3 H ABG Base Excess ABG Hemoglobin 10.4 L Oxyhemoglobin 94.5 L Sodium Potassium Chloride Carbon Dioxide BUN Creatinine Glucose POC Glucose 170 H 150 H Calcium Phosphorus ALT Alkaline Phosphatase Total Creatine Kinase CK-MB (CK-2) Rel Index Troponin T Albumin LDL Cholesterol Direct PTH Intact Salicylates Acetaminophen Crossmatch 03/18/19 03/18/19 03/18/19 06:38 12:12 17:47 WBC RBC Hgb Hct MCH MCHC RDW Lymph % (Auto) Frio % (Auto) Eos % (Auto) Lymph # Frio # Eos # Seg Neutrophils % Seg Neuts % (Manual) Lymphocytes % (Manual) Eosinophils % (Manual) Seg Neutrophils # Lymphocytes # (Manual) Eosinophils # (Manual) PT INR D-Dimer POC ABG pH 7.510 H POC ABG pCO2 POC ABG pO2 164 H ABG pO2 ABG HCO3 ABG Base Excess ABG Hemoglobin Oxyhemoglobin Sodium Potassium Chloride Carbon Dioxide BUN Creatinine Glucose POC Glucose 145 H 149 H Calcium Phosphorus ALT Alkaline Phosphatase Total Creatine Kinase CK-MB (CK-2) Rel Index Troponin T Albumin LDL Cholesterol Direct PTH Intact Salicylates Acetaminophen Crossmatch 03/18/19 03/19/19 03/19/19 23:25 01:11 04:23 WBC 15.6 H RBC 2.51 L Hgb 6.5 L Hct 21.6 L MCH 26 L MCHC 30 L RDW 19.8 H Lymph % (Auto) 6.0 L Frio % (Auto) Eos % (Auto) Lymph # 0.9 L Frio # 1.0 H Eos # Seg Neutrophils % 85.5 H Seg Neuts % (Manual) Lymphocytes % (Manual) Eosinophils % (Manual) Seg Neutrophils # 13.4 H Lymphocytes # (Manual) Eosinophils # (Manual) PT INR D-Dimer POC ABG pH POC ABG pCO2 POC ABG pO2 ABG pO2 78.3 L ABG HCO3 30.7 H ABG Base Excess 5.8 H ABG Hemoglobin 5.8 L Oxyhemoglobin 94.6 L Sodium Potassium Chloride Carbon Dioxide BUN Creatinine Glucose POC Glucose 190 H Calcium Phosphorus ALT Alkaline Phosphatase Total Creatine Kinase CK-MB (CK-2) Rel Index Troponin T Albumin LDL Cholesterol Direct PTH Intact Salicylates Acetaminophen Crossmatch 03/19/19 03/19/19 03/19/19 05:22 05:35 08:54 WBC RBC Hgb Hct MCH MCHC RDW Lymph % (Auto) Frio % (Auto) Eos % (Auto) Lymph # Frio # Eos # Seg Neutrophils % Seg Neuts % (Manual) Lymphocytes % (Manual) Eosinophils % (Manual) Seg Neutrophils # Lymphocytes # (Manual) Eosinophils # (Manual) PT INR D-Dimer POC ABG pH POC ABG pCO2 POC ABG pO2 ABG pO2 ABG HCO3 ABG Base Excess ABG Hemoglobin Oxyhemoglobin Sodium Potassium Chloride Carbon Dioxide BUN Creatinine Glucose POC Glucose 167 H Calcium Phosphorus ALT Alkaline Phosphatase Total Creatine Kinase CK-MB (CK-2) Rel Index Troponin T Albumin LDL Cholesterol Direct PTH Intact Salicylates Acetaminophen Crossmatch See Detail See Detail 03/19/19 03/19/19 03/19/19 12:36 17:02 23:25 WBC RBC Hgb Hct MCH MCHC RDW Lymph % (Auto) Frio % (Auto) Eos % (Auto) Lymph # Frio # Eos # Seg Neutrophils % Seg Neuts % (Manual) Lymphocytes % (Manual) Eosinophils % (Manual) Seg Neutrophils # Lymphocytes # (Manual) Eosinophils # (Manual) PT INR D-Dimer POC ABG pH POC ABG pCO2 POC ABG pO2 ABG pO2 ABG HCO3 ABG Base Excess ABG Hemoglobin Oxyhemoglobin Sodium Potassium Chloride Carbon Dioxide BUN Creatinine Glucose POC Glucose 167 H 135 H 136 H Calcium Phosphorus ALT Alkaline Phosphatase Total Creatine Kinase CK-MB (CK-2) Rel Index Troponin T Albumin LDL Cholesterol Direct PTH Intact Salicylates Acetaminophen Crossmatch 03/20/19 03/20/19 03/20/19 05:38 08:40 08:40 WBC RBC 2.61 L Hgb 7.1 L Hct 22.0 L MCH 27 L MCHC RDW 19.6 H Lymph % (Auto) 8.2 L Frio % (Auto) 8.3 H Eos % (Auto) 5.7 H Lymph # 0.8 L Frio # Eos # 0.5 H Seg Neutrophils % 77.3 H Seg Neuts % (Manual) Lymphocytes % (Manual) Eosinophils % (Manual) Seg Neutrophils # Lymphocytes # (Manual) Eosinophils # (Manual) PT INR D-Dimer POC ABG pH POC ABG pCO2 POC ABG pO2 ABG pO2 ABG HCO3 ABG Base Excess ABG Hemoglobin Oxyhemoglobin Sodium Potassium Chloride 95.9 L Carbon Dioxide BUN 69 H Creatinine 2.8 H Glucose 115 H POC Glucose 134 H Calcium 10.5 H Phosphorus ALT Alkaline Phosphatase Total Creatine Kinase CK-MB (CK-2) Rel Index Troponin T Albumin LDL Cholesterol Direct PTH Intact Salicylates Acetaminophen Crossmatch 03/20/19 03/20/19 03/20/19 12:13 18:04 23:49 WBC RBC Hgb Hct MCH MCHC RDW Lymph % (Auto) Frio % (Auto) Eos % (Auto) Lymph # Frio # Eos # Seg Neutrophils % Seg Neuts % (Manual) Lymphocytes % (Manual) Eosinophils % (Manual) Seg Neutrophils # Lymphocytes # (Manual) Eosinophils # (Manual) PT INR D-Dimer POC ABG pH POC ABG pCO2 POC ABG pO2 ABG pO2 ABG HCO3 ABG Base Excess ABG Hemoglobin Oxyhemoglobin Sodium Potassium Chloride Carbon Dioxide BUN Creatinine Glucose POC Glucose 144 H 165 H 172 H Calcium Phosphorus ALT Alkaline Phosphatase Total Creatine Kinase CK-MB (CK-2) Rel Index Troponin T Albumin LDL Cholesterol Direct PTH Intact Salicylates Acetaminophen Crossmatch 03/21/19 03/21/19 03/21/19 05:00 06:29 06:30 WBC RBC 2.72 L Hgb 7.4 L Hct 22.9 L MCH 27 L MCHC RDW 19.4 H Lymph % (Auto) Frio % (Auto) Eos % (Auto) Lymph # Frio # Eos # Seg Neutrophils % Seg Neuts % (Manual) 81.0 H Lymphocytes % (Manual) 8.0 L Eosinophils % (Manual) 8.0 H Seg Neutrophils # Lymphocytes # (Manual) 0.7 L Eosinophils # (Manual) 0.7 H PT INR D-Dimer POC ABG pH POC ABG pCO2 POC ABG pO2 ABG pO2 ABG HCO3 ABG Base Excess ABG Hemoglobin Oxyhemoglobin Sodium Potassium Chloride Carbon Dioxide 33 H BUN 43 H Creatinine 1.7 H Glucose 145 H POC Glucose 156 H Calcium Phosphorus ALT Alkaline Phosphatase 212 H Total Creatine Kinase CK-MB (CK-2) Rel Index Troponin T Albumin 2.2 L LDL Cholesterol Direct PTH Intact Salicylates Acetaminophen Crossmatch 03/21/19 03/21/19 03/22/19 12:02 18:07 00:21 WBC RBC Hgb Hct MCH MCHC RDW Lymph % (Auto) Frio % (Auto) Eos % (Auto) Lymph # Frio # Eos # Seg Neutrophils % Seg Neuts % (Manual) Lymphocytes % (Manual) Eosinophils % (Manual) Seg Neutrophils # Lymphocytes # (Manual) Eosinophils # (Manual) PT INR D-Dimer POC ABG pH POC ABG pCO2 POC ABG pO2 ABG pO2 ABG HCO3 ABG Base Excess ABG Hemoglobin Oxyhemoglobin Sodium Potassium Chloride Carbon Dioxide BUN Creatinine Glucose POC Glucose 163 H 144 H 153 H Calcium Phosphorus ALT Alkaline Phosphatase Total Creatine Kinase CK-MB (CK-2) Rel Index Troponin T Albumin LDL Cholesterol Direct PTH Intact Salicylates Acetaminophen Crossmatch 03/22/19 03/22/19 03/22/19 05:23 05:23 05:31 WBC RBC 2.58 L Hgb 7.1 L Hct 21.8 L MCH 27 L MCHC RDW 19.2 H Lymph % (Auto) Frio % (Auto) Eos % (Auto) Lymph # Frio # Eos # Seg Neutrophils % Seg Neuts % (Manual) Lymphocytes % (Manual) Eosinophils % (Manual) Seg Neutrophils # Lymphocytes # (Manual) Eosinophils # (Manual) PT INR D-Dimer POC ABG pH POC ABG pCO2 POC ABG pO2 ABG pO2 ABG HCO3 ABG Base Excess ABG Hemoglobin Oxyhemoglobin Sodium 147 H Potassium Chloride Carbon Dioxide BUN 68 H Creatinine 2.5 H Glucose POC Glucose 116 H Calcium 10.3 H Phosphorus ALT Alkaline Phosphatase Total Creatine Kinase CK-MB (CK-2) Rel Index Troponin T Albumin LDL Cholesterol Direct PTH Intact Salicylates Acetaminophen Crossmatch 03/22/19 03/22/19 03/22/19 08:48 12:37 17:35 WBC RBC Hgb Hct MCH MCHC RDW Lymph % (Auto) Frio % (Auto) Eos % (Auto) Lymph # Frio # Eos # Seg Neutrophils % Seg Neuts % (Manual) Lymphocytes % (Manual) Eosinophils % (Manual) Seg Neutrophils # Lymphocytes # (Manual) Eosinophils # (Manual) PT INR D-Dimer POC ABG pH POC ABG pCO2 POC ABG pO2 ABG pO2 ABG HCO3 ABG Base Excess ABG Hemoglobin Oxyhemoglobin Sodium Potassium Chloride Carbon Dioxide BUN Creatinine Glucose POC Glucose 143 H 155 H Calcium Phosphorus ALT Alkaline Phosphatase Total Creatine Kinase CK-MB (CK-2) Rel Index Troponin T Albumin LDL Cholesterol Direct PTH Intact Salicylates Acetaminophen Crossmatch See Detail 03/23/19 03/23/19 03/23/19 00:07 04:00 04:00 WBC 11.2 H RBC 2.32 L Hgb 6.4 L Hct 19.7 L* MCH MCHC RDW 19.4 H Lymph % (Auto) Frio % (Auto) Eos % (Auto) Lymph # Frio # Eos # Seg Neutrophils % Seg Neuts % (Manual) Lymphocytes % (Manual) Eosinophils % (Manual) Seg Neutrophils # Lymphocytes # (Manual) Eosinophils # (Manual) PT INR D-Dimer POC ABG pH POC ABG pCO2 POC ABG pO2 ABG pO2 ABG HCO3 ABG Base Excess ABG Hemoglobin Oxyhemoglobin Sodium 147 H Potassium 5.2 H Chloride Carbon Dioxide BUN 86 H Creatinine 3.2 H Glucose 128 H POC Glucose 135 H Calcium 10.3 H Phosphorus ALT Alkaline Phosphatase Total Creatine Kinase CK-MB (CK-2) Rel Index Troponin T Albumin LDL Cholesterol Direct PTH Intact Salicylates Acetaminophen Crossmatch 03/23/19 03/23/19 03/23/19 05:21 11:36 11:36 WBC RBC Hgb 7.9 L Hct 25.0 L MCH MCHC RDW Lymph % (Auto) Frio % (Auto) Eos % (Auto) Lymph # Frio # Eos # Seg Neutrophils % Seg Neuts % (Manual) Lymphocytes % (Manual) Eosinophils % (Manual) Seg Neutrophils # Lymphocytes # (Manual) Eosinophils # (Manual) PT INR D-Dimer POC ABG pH POC ABG pCO2 POC ABG pO2 ABG pO2 ABG HCO3 ABG Base Excess ABG Hemoglobin Oxyhemoglobin Sodium Potassium Chloride Carbon Dioxide BUN Creatinine Glucose POC Glucose 132 H 147 H Calcium Phosphorus ALT Alkaline Phosphatase Total Creatine Kinase CK-MB (CK-2) Rel Index Troponin T Albumin LDL Cholesterol Direct PTH Intact Salicylates Acetaminophen Crossmatch 03/23/19 03/24/19 03/24/19 17:31 01:22 04:20 WBC 12.2 H RBC 3.05 L Hgb 8.3 L Hct 25.9 L MCH 27 L MCHC RDW 18.7 H Lymph % (Auto) Frio % (Auto) Eos % (Auto) Lymph # Frio # Eos # Seg Neutrophils % Seg Neuts % (Manual) Lymphocytes % (Manual) Eosinophils % (Manual) Seg Neutrophils # Lymphocytes # (Manual) Eosinophils # (Manual) PT INR D-Dimer POC ABG pH POC ABG pCO2 POC ABG pO2 ABG pO2 ABG HCO3 ABG Base Excess ABG Hemoglobin Oxyhemoglobin Sodium Potassium Chloride Carbon Dioxide BUN Creatinine Glucose POC Glucose 182 H 113 H Calcium Phosphorus ALT Alkaline Phosphatase Total Creatine Kinase CK-MB (CK-2) Rel Index Troponin T Albumin LDL Cholesterol Direct PTH Intact Salicylates Acetaminophen Crossmatch 03/24/19 03/24/19 03/24/19 04:20 11:59 18:14 WBC RBC Hgb Hct MCH MCHC RDW Lymph % (Auto) Frio % (Auto) Eos % (Auto) Lymph # Frio # Eos # Seg Neutrophils % Seg Neuts % (Manual) Lymphocytes % (Manual) Eosinophils % (Manual) Seg Neutrophils # Lymphocytes # (Manual) Eosinophils # (Manual) PT INR D-Dimer POC ABG pH POC ABG pCO2 POC ABG pO2 ABG pO2 ABG HCO3 ABG Base Excess ABG Hemoglobin Oxyhemoglobin Sodium Potassium Chloride 94.8 L Carbon Dioxide 32 H BUN 53 H Creatinine 2.3 H Glucose POC Glucose 163 H 134 H Calcium Phosphorus ALT Alkaline Phosphatase Total Creatine Kinase CK-MB (CK-2) Rel Index Troponin T Albumin LDL Cholesterol Direct PTH Intact Salicylates Acetaminophen Crossmatch 03/24/19 03/25/19 03/25/19 23:15 05:52 12:02 WBC RBC Hgb Hct MCH MCHC RDW Lymph % (Auto) Frio % (Auto) Eos % (Auto) Lymph # Frio # Eos # Seg Neutrophils % Seg Neuts % (Manual) Lymphocytes % (Manual) Eosinophils % (Manual) Seg Neutrophils # Lymphocytes # (Manual) Eosinophils # (Manual) PT INR D-Dimer POC ABG pH POC ABG pCO2 POC ABG pO2 ABG pO2 ABG HCO3 ABG Base Excess ABG Hemoglobin Oxyhemoglobin Sodium Potassium Chloride Carbon Dioxide BUN Creatinine Glucose POC Glucose 129 H 123 H 125 H Calcium Phosphorus ALT Alkaline Phosphatase Total Creatine Kinase CK-MB (CK-2) Rel Index Troponin T Albumin LDL Cholesterol Direct PTH Intact Salicylates Acetaminophen Crossmatch 03/25/19 03/26/19 03/26/19 17:27 00:30 05:35 WBC RBC 3.01 L Hgb 8.1 L Hct 25.7 L MCH 27 L MCHC RDW 19.2 H Lymph % (Auto) 11.4 L Frio % (Auto) Eos % (Auto) 8.0 H Lymph # 1.0 L Frio # Eos # 0.7 H Seg Neutrophils % 73.9 H Seg Neuts % (Manual) Lymphocytes % (Manual) Eosinophils % (Manual) Seg Neutrophils # Lymphocytes # (Manual) Eosinophils # (Manual) PT INR D-Dimer POC ABG pH POC ABG pCO2 POC ABG pO2 ABG pO2 ABG HCO3 ABG Base Excess ABG Hemoglobin Oxyhemoglobin Sodium Potassium Chloride Carbon Dioxide BUN Creatinine Glucose POC Glucose 130 H 129 H Calcium Phosphorus ALT Alkaline Phosphatase Total Creatine Kinase CK-MB (CK-2) Rel Index Troponin T Albumin LDL Cholesterol Direct PTH Intact Salicylates Acetaminophen Crossmatch 03/26/19 03/26/19 03/26/19 05:35 05:45 12:16 WBC RBC Hgb Hct MCH MCHC RDW Lymph % (Auto) Frio % (Auto) Eos % (Auto) Lymph # Frio # Eos # Seg Neutrophils % Seg Neuts % (Manual) Lymphocytes % (Manual) Eosinophils % (Manual) Seg Neutrophils # Lymphocytes # (Manual) Eosinophils # (Manual) PT INR D-Dimer POC ABG pH POC ABG pCO2 POC ABG pO2 ABG pO2 ABG HCO3 ABG Base Excess ABG Hemoglobin Oxyhemoglobin Sodium Potassium Chloride 94.9 L Carbon Dioxide 31 H BUN 44 H Creatinine 2.0 H Glucose POC Glucose 118 H 107 H Calcium Phosphorus ALT Alkaline Phosphatase Total Creatine Kinase CK-MB (CK-2) Rel Index Troponin T Albumin LDL Cholesterol Direct PTH Intact Salicylates Acetaminophen Crossmatch 03/26/19 03/27/19 03/27/19 17:56 00:36 05:37 WBC RBC Hgb Hct MCH MCHC RDW Lymph % (Auto) Frio % (Auto) Eos % (Auto) Lymph # Frio # Eos # Seg Neutrophils % Seg Neuts % (Manual) Lymphocytes % (Manual) Eosinophils % (Manual) Seg Neutrophils # Lymphocytes # (Manual) Eosinophils # (Manual) PT INR D-Dimer POC ABG pH POC ABG pCO2 POC ABG pO2 ABG pO2 ABG HCO3 ABG Base Excess ABG Hemoglobin Oxyhemoglobin Sodium Potassium Chloride Carbon Dioxide BUN Creatinine Glucose POC Glucose 107 H 110 H 122 H Calcium Phosphorus ALT Alkaline Phosphatase Total Creatine Kinase CK-MB (CK-2) Rel Index Troponin T Albumin LDL Cholesterol Direct PTH Intact Salicylates Acetaminophen Crossmatch 03/27/19 03/27/19 03/28/19 11:22 18:00 05:17 WBC RBC Hgb Hct MCH MCHC RDW Lymph % (Auto) Frio % (Auto) Eos % (Auto) Lymph # Frio # Eos # Seg Neutrophils % Seg Neuts % (Manual) Lymphocytes % (Manual) Eosinophils % (Manual) Seg Neutrophils # Lymphocytes # (Manual) Eosinophils # (Manual) PT INR D-Dimer POC ABG pH POC ABG pCO2 POC ABG pO2 ABG pO2 ABG HCO3 ABG Base Excess ABG Hemoglobin Oxyhemoglobin Sodium Potassium Chloride Carbon Dioxide BUN Creatinine Glucose POC Glucose 120 H 111 H 107 H Calcium Phosphorus ALT Alkaline Phosphatase Total Creatine Kinase CK-MB (CK-2) Rel Index Troponin T Albumin LDL Cholesterol Direct PTH Intact Salicylates Acetaminophen Crossmatch 03/28/19 12:27 WBC RBC Hgb Hct MCH MCHC RDW Lymph % (Auto) Frio % (Auto) Eos % (Auto) Lymph # Frio # Eos # Seg Neutrophils % Seg Neuts % (Manual) Lymphocytes % (Manual) Eosinophils % (Manual) Seg Neutrophils # Lymphocytes # (Manual) Eosinophils # (Manual) PT INR D-Dimer POC ABG pH POC ABG pCO2 POC ABG pO2 ABG pO2 ABG HCO3 ABG Base Excess ABG Hemoglobin Oxyhemoglobin Sodium Potassium Chloride Carbon Dioxide BUN Creatinine Glucose POC Glucose 114 H Calcium Phosphorus ALT Alkaline Phosphatase Total Creatine Kinase CK-MB (CK-2) Rel Index Troponin T Albumin LDL Cholesterol Direct PTH Intact Salicylates Acetaminophen Crossmatch
[2019-03-28] MEDS: traMADol 50 MG TAB PO PRN ×2 (15:53→21:38)
--- NOTE | 2019-03-28 16:07 | Progress Note ---
Assessment and Plan Assessment and plan: Acute respiratory failure on mechanical ventilator >96 hrs Extubated ; history of tracheostomy on T piece Current management , nebulizers, Currently on trach/peg placed on 03/03. Now off vent, cont oxygen supplement, improving, on t piece, nebulizers, pulmonary critical following acute on chronic systolic CHF/ Acute pulmonary edema, HD per schedule Dilated CMP, EF 35-40% Continue diuresis, supportive care Acute metabolic encephalopathy, resolved, has baseline Dementia. --ESRD on hemodialysis per schedule nephrology following --Bilateral pleural effusions improved with HD --Permanent atrial fibrillation and flutter and hypercoaguable state Not on anticoagulation because of anemia thrombocytopenia rate control meds optimized --Diabetes mellitus type 2 Accu-Chek sliding scale coverage Insulin as needed --NSTEMI type 2 , Cardiology following --Schizophrenia:stable --Legally blind, supportive care --hypertension, Monitor BP,'s adjust medications as needed --Hypokalemia; corrected --Pulmonary hypertension; continue current management --Dysphagia s/p PEG tube; PEG tubes per protocol --Sacral decub ulcer; Wound care --Severe malnutrition /hypoalbuminemia with FTT: 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, 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 inpatient hospice was recommended, but family is not agreeable at this time. family meeting and ethic consult as needed History Interval history: Patient is 63-year-old -[place]ian male patient from [facility] with multiple co-morbidities including blindness, CVA, CHF, PPM/ICD, loop recorder since 2012 that is MRI compatible, IDDM type 2, sepsis left foot ulcer, afib, ESRD with complications on HD TTS, hypertension, AOCD and GERD who presented to the ED with hypotensive after intubation in the emergency room. diagnosed with fluid overload, pleural effusion. Patient has had recurrent admission in the hospital for similar reason and was recently discharged from the hospital following treatment of Severe Sepsis due to Necrotizing Unstagable sacral decubitus ulcer with ostemomylitis, has received multiple courses of broad spectrum abx. Acute hypoxic respiratory failure, status post intubation and ventilatory support, now off vent, on T-piece Hospitalist Physical - Constitutional Vitals: Temp Pulse Resp BP Pulse Ox 98.1 F 100 H 23 98/62 99 03/28/19 12:00 03/28/19 15:00 03/28/19 15:00 03/28/19 15:00 03/28/19 15:00 General appearance: Present: no acute distress, well-nourished, other (tracheostomy on T piece) - EENT Eyes: Present: PERRL, EOM intact ENT: hearing intact, clear oral mucosa, dentition normal - Neck Neck: Present: supple, normal ROM - Respiratory Respiratory effort: normal Respiratory: bilateral: CTA - Cardiovascular Rhythm: regular Heart Sounds: Present: S1 & S2. Absent: gallop, rub - Extremities Extremities: no ischemia, No edema, Full ROM - Abdominal General gastrointestinal: soft, non-tender, non-distended, normal bowel sounds - Integumentary Integumentary: Present: clear, warm, dry - Neurologic Neurologic: CNII-XII intact, moves all extremities Results - Labs CBC & Chem 7: 03/26/19 05:35 03/26/19 05:35 Labs: Laboratory Last Values WBC 8.8 K/mm3 (4.5-11.0) 03/26/19 05:35 RBC 3.01 M/mm3 (3.65-5.03) L 03/26/19 05:35 Hgb 8.1 gm/dl (11.8-15.2) L 03/26/19 05:35 Hct 25.7 % (35.5-45.6) L 03/26/19 05:35 MCV 85 fl (84-94) 03/26/19 05:35 MCH 27 pg (28-32) L 03/26/19 05:35 MCHC 32 % (32-34) 03/26/19 05:35 RDW 19.2 % (13.2-15.2) H 03/26/19 05:35 Plt Count 352 K/mm3 (140-440) 03/26/19 05:35 Lymph % (Auto) 11.4 % (13.4-35.0) L 03/26/19 05:35 [place] % (Auto) 5.9 % (0.0-7.3) 03/26/19 05:35 Eos % (Auto) 8.0 % (0.0-4.3) H 03/26/19 05:35 Baso % (Auto) 0.8 % (0.0-1.8) 03/26/19 05:35 Lymph # 1.0 K/mm3 (1.2-5.4) L 03/26/19 05:35 [place] # 0.5 K/mm3 (0.0-0.8) 03/26/19 05:35 Eos # 0.7 K/mm3 (0.0-0.4) H 03/26/19 05:35 Baso # 0.1 K/mm3 (0.0-0.1) 03/26/19 05:35 Add Manual Diff Complete 03/21/19 06:30 Total Counted 100 03/21/19 06:30 Seg Neutrophils % 73.9 % (40.0-70.0) H 03/26/19 05:35 Seg Neuts % (Manual) 81.0 % (40.0-70.0) H 03/21/19 06:30 0 % 03/21/19 06:30 8.0 % (13.4-35.0) L 03/21/19 06:30 Reactive Lymphs % (Man) 0 % 03/21/19 06:30 1.0 % (0.0-7.3) 03/21/19 06:30 8.0 % (0.0-4.3) H 03/21/19 06:30 1.0 % (0.0-1.8) 03/21/19 06:30 1.0 % 03/21/19 06:30 0 % 03/21/19 06:30 0 % 03/21/19 06:30 0 % 03/21/19 06:30 Nucleated RBC % Not Reportable 03/21/19 06:30 Seg Neutrophils # 6.5 K/mm3 (1.8-7.7) 03/26/19 05:35 Seg Neutrophils # Man 6.7 K/mm3 (1.8-7.7) 03/21/19 06:30 Band Neutrophils # 0.0 K/mm3 03/21/19 06:30 0.7 K/mm3 (1.2-5.4) L 03/21/19 06:30 Abs React Lymphs (Man) 0.0 K/mm3 03/21/19 06:30 0.1 K/mm3 (0.0-0.8) 03/21/19 06:30 0.7 K/mm3 (0.0-0.4) H 03/21/19 06:30 0.1 K/mm3 (0.0-0.1) 03/21/19 06:30 0.1 K/mm3 03/21/19 06:30 0.0 K/mm3 03/21/19 06:30 0.0 K/mm3 03/21/19 06:30 Blast Cells # 0.0 K/mm3 03/21/19 06:30 WBC Morphology Not Reportable 03/21/19 06:30 Hypersegmented Neuts Not Reportable 03/21/19 06:30 Hyposegmented Neuts Not Reportable 03/21/19 06:30 Hypogranular Neuts Not Reportable 03/21/19 06:30 Not Reportable 03/21/19 06:30 Not Reportable 03/21/19 06:30 Not Reportable 03/21/19 06:30 Not Reportable 03/21/19 06:30 Not Reportable 03/21/19 06:30 Not Reportable 03/21/19 06:30 Consistent w auto 03/21/19 06:30 Not Reportable 03/21/19 06:30 Plt Clumps, EDTA Not Reportable 03/21/19 06:30 Not Reportable 03/21/19 06:30 Not Reportable 03/21/19 06:30 Not Reportable 03/21/19 06:30 Plt Morphology Comment Not Reportable 03/21/19 06:30 RBC Morphology Not Reportable 03/21/19 06:30 Dimorphic RBCs Not Reportable 03/21/19 06:30 Not Reportable 03/21/19 06:30 Few 03/21/19 06:30 Few 03/21/19 06:30 Few 03/21/19 06:30 Not Reportable 03/21/19 06:30 Not Reportable 03/21/19 06:30 Not Reportable 03/21/19 06:30 Not Reportable 03/21/19 06:30 Not Reportable 03/21/19 06:30 1+ 03/21/19 06:30 Not Reportable 03/21/19 06:30 Few 03/21/19 06:30 Not Reportable 03/21/19 06:30 Not Reportable 03/21/19 06:30 Not Reportable 03/21/19 06:30 Not Reportable 03/21/19 06:30 Not Reportable 03/21/19 06:30 Not Reportable 03/21/19 06:30 Not Reportable 03/21/19 06:30 Acanthocytes (Spur) Not Reportable 03/21/19 06:30 Rouleaux Not Reportable 03/21/19 06:30 Not Reportable 03/21/19 06:30 Not Reportable 03/21/19 06:30 Not Reportable 03/21/19 06:30 Not Reportable 03/21/19 06:30 Hem Pathologist Commnt No 03/21/19 06:30 PT 16.3 Sec. (12.2-14.9) H 03/01/19 09:39 INR 1.35 (0.87-1.13) H 03/01/19 09:39 APTT 33.7 Sec. (24.2-36.6) 02/21/19 18:30 2987.82 ng/mlDDU (0-234) H 02/22/19 05:54 POC ABG pH 7.510 (7.35-7.45) H 03/18/19 06:38 ABG pH 7.424 pH Units (7.350-7.450) 03/19/19 04:23 POC ABG pCO2 38.9 (35-45) 03/18/19 06:38 ABG pCO2 48.0 mm Hg 03/19/19 04:23 POC ABG pO2 164 (80-105) H 03/18/19 06:38 ABG pO2 78.3 mm Hg (80.0-90.0) L 03/19/19 04:23 POC ABG HCO3 31.0 (22-26 mml/L) 03/18/19 06:38 ABG HCO3 30.7 mmol/L (20.0-26.0) H 03/19/19 04:23 POC ABG Total CO2 32 (23-27mmol/L) 03/18/19 06:38 POC ABG O2 Sat 100 03/18/19 06:38 ABG O2 Saturation 97.0 % (95.0-99.0) 03/19/19 04:23 ABG O2 Content 7.9 (0.0-44) 03/19/19 04:23 POC ABG Base Excess 8 ((-2) - (+3)mmol/L) 03/18/19 06:38 ABG Base Excess 5.8 mmol/L (-2.0-3.0) H 03/19/19 04:23 ABG Hemoglobin 5.8 gm/dl (14.0-18.0) L 03/19/19 04:23 ABG Carboxyhemoglobin 2.0 % (0.0-5.0) 03/19/19 04:23 ABG Methemoglobin 0.4 % (0.0-1.5) 03/19/19 04:23 94.6 % (95.0-99.0) L 03/19/19 04:23 35 % 03/19/19 04:23 Sodium 139 mmol/L (137-145) 03/26/19 05:35 Potassium 4.6 mmol/L (3.6-5.0) 03/26/19 05:35 Chloride 94.9 mmol/L (98-107) L 03/26/19 05:35 Carbon Dioxide 31 mmol/L (22-30) H 03/26/19 05:35 18 mmol/L 03/26/19 05:35 BUN 44 mg/dL (9-20) H 03/26/19 05:35 2.0 mg/dL (0.8-1.5) H 03/26/19 05:35 Estimated GFR 41 ml/min 03/26/19 05:35 22 % 03/26/19 05:35 Glucose 96 mg/dL (75-100) 03/26/19 05:35 POC Glucose 114 (70-105) H 03/28/19 12:27 Lactic Acid 1.00 mmol/L (0.7-2.0) 02/21/19 20:58 Calcium 10.1 mg/dL (8.4-10.2) 03/26/19 05:35 Phosphorus 3.10 mg/dL (2.5-4.5) 03/15/19 04:38 Magnesium 2.00 mg/dL (1.7-2.3) 03/21/19 05:00 0.30 mg/dL (0.1-1.2) 03/21/19 05:00 AST 23 units/L (5-40) 03/21/19 05:00 ALT 18 units/L (7-56) 03/21/19 05:00 212 units/L (35-129) H 03/21/19 05:00 28.0 umol/L (25-60) 02/21/19 20:04 64 units/L (55-170) 02/22/19 03:42 CK-MB (CK-2) 3.7 ng/mL (0.0-4.0) 02/22/19 03:42 CK-MB (CK-2) Rel Index 5.7 (0-4) H 02/22/19 03:42 0.193 ng/mL (0.00-0.029) H* 02/22/19 03:42 6.7 g/dL (6.3-8.2) 03/21/19 05:00 2.2 g/dL (3.9-5) L 03/21/19 05:00 0.5 % 03/21/19 05:00 Triglycerides 51 mg/dL (2-149) 02/21/19 18:30 Cholesterol 82 mg/dL (50-199) 02/21/19 18:30 36 mg/dL (50-130) L 02/21/19 18:30 40 mg/dL (40-59) 02/21/19 18:30 2.05 % 02/21/19 18:30 TSH 2.760 mlU/mL (0.270-4.200) 02/21/19 20:04 PTH Intact 267.6 pg/mL (15-65) H 03/02/19 05:15 Salicylates < 0.3 mg/dL (2.8-20.0) L 02/21/19 20:04 Acetaminophen < 5.0 ug/mL (10.0-30.0) L 02/21/19 20:04 Hepatitis A IgM Ab Non-reactive (NonReactive) 02/23/19 11:20 Hep Bs Antigen Non-reactive (Negative) 02/23/19 11:20 Hep B Core IgM Ab Non-reactive (NonReactive) 02/23/19 11:20 Non-reactive (NonReactive) 02/23/19 11:20 Blood Type O POSITIVE 03/22/19 08:48 Antibody Screen Negative 03/22/19 08:48 Crossmatch See Detail 03/22/19 08:48 Active Medications - Current Medications Current Medications: Generic Name Dose Route Start Last Admin Trade Name Freq PRN Reason Stop Dose Admin Albuterol/Ipratropium 1 ampul 02/24/19 20:00 03/28/19 14:49 Duoneb *Not For Prn Use* IH 1 ampul TIDRT SANCHEZ Administration Lipase/Protease/Amylase 1 each 03/05/19 14:[address] 10,500 Unit FEEDTUBE PRN PRN For Clogged Feeding Tube Epoetin Solitraio 20,000 unit 03/24/19 11:17 Procrit IV UMA PRN hemodialysis Famotidine 20 mg 02/23/19 10:00 03/28/19 10:10 Pepcid PO 20 mg DAILY SANCHEZ Administration Heparin Sodium (Porcine) 5,000 unit 03/04/19 22:00 03/28/19 10:10 Heparin SUB-Q 5,000 unit Q12HR SANCHEZ Administration Hydrophilic Ointment 1 applic 02/21/19 18:24 03/05/19 08:16 Vaseline Lip Therapy TP 1 applic Q2HR PRN Administration Dry Lips Sodium Chloride 100 mls @ 999 mls/hr 02/26/19 09:00 Nacl 0.9% IV UMA PRN Hypotension Norepinephrine 8 mg/ Sodium 250 mls @ 3.75 mls/hr 03/18/19 13:00 03/19/19 09:17 Chloride IV 0 mcg/min TITR SANCHEZ 0 mls/hr Titration Protocol 2 MCG/MIN Insulin Human Regular 0 units 02/26/19 12:00 03/28/19 12:30 Humulin R SUB-Q Not Given Q6HR SANCHEZ Protocol Metoprolol Tartrate 2.5 mg 02/28/19 12:06 03/15/19 05:15 Lopressor IV 2.5 mg Q4HR PRN Administration Tachycardia Multi-Ingred Cream/Lotion/Oil/Oint 1 applic 02/21/19 18:24 Artificial Tears Ophth Oint OU Q4HR PRN Dry Eye(s) Risperidone 1 mg 02/25/19 13:00 03/28/19 10:10 Risperdal PO 1 mg DAILY SANCHEZ Administration Scopolamine 1 each 03/13/19 04:00 03/28/19 06:39 Transderm-Scop TD 1 each Q3D SANCHEZ Administration Sertraline HCl 100 mg 02/25/19 13:00 03/28/19 10:10 Zoloft PO 100 mg DAILY SANCHEZ Administration Simple Syrup 15 ml 03/05/19 14:04 Simple Syrup FEEDTUBE PRN PRN Hypoglycemia Simple Syrup 30 ml 03/05/19 14:04 Simple Syrup FEEDTUBE PRN PRN Hypoglycemia Sodium Bicarbonate 325 mg 03/05/19 14:04 Sodium Bicarbonate FEEDTUBE PRN PRN For Clogged Feeding Tube Tramadol HCl 50 mg 03/05/19 10:08 03/28/19 15:53 Ultram PO 50 mg Q6H PRN Administration Pain, Moderate (4-6) Trimethoprim/Sulfamethoxazole 160 mg 03/19/19 15:00 03/28/19 10:10 Bactrim 200-40 Mg/5 Ml PO 03/28/19 23:59 160 mg Q24HR SANCHEZ Administration Nutrition/Malnutrition Assess - Dietary Evaluation Nutrition/Malnutrition Findings: Nutrition Notes Start: 02/22/19 12:51 Freq: Status: Active Protocol: Document 03/28/19 11:19 LM (Rec: 03/28/19 11:24 LM [id number]) Nutrition Notes Labs/Tests Reviewed Pertinent Medications Reviewed Height 5 ft 10 in Weight 74.7 kg [place] Body Weight (kg) 75.45 BMI 23.6 Subjective/Other Information Nepro running at 50 ml/hr at time of visit. Pt is tolerating TF. Percent of energy/protein needs met: 96%/100% Burn Absent Trauma Absent #2 Nutrition Diagnosis Increased nutrient needs ( specify in comment below) Diagnosis Progress(for reassessment Continues documentation) #1 Nutrition Diagnosis Inadequate oral intake Diagnosis Progress(for reassessment Continues documentation) Is patient on ventilator? No Is Patient Ambulatory and/or Out of Bed No REE-([place]-St. Jeor-confined to bed) 1857.144 Kcal/Kg value to use for calculation 30 Approximate Energy Requirements Using 2241 kcal/Kg Calculation Used for Recommendations Kcal/kg Additional Notes Protein Needs: 90-112g (1.2-1. 5g/kg) Fluid Needs: 1-1.5 L/day Nutrition Intervention Change Diet Order: Continue TF Nutrition Support: Nepro with Carbsteady 1.8 at 50 ml/hr Flush 200 ml q4hr Kcal 2,160 Protein (gm) 97 Fluid (mL) 872 Add Supplement/Snack (indicate name/kcal Abhilash BID /protein ) Provides kCal: 190 Provides Protein (gm) 5 Goal #1 TF tolerance Goal #2 Continue to meet at least 80% of calorie and protein needs via TF Anticipated Discharge Needs: TF Follow-Up By: 04/03/19 Additional Comments F/U for new TF rate/tolerance
--- NOTE | 2019-03-28 16:32 | Progress Note ---
Assessment and Plan Assessment: * End stage renal disease (outpatient TTS schedule) * Acute hypoxic respiratory failure on mechanical ventilation * Atrial fibrillation * History of CVA * Anemia secondary to ESRD * Secondary hyperparathyroidism Plan * Continue HD MWF schedule for now while inpatient * UF as tolerated * AVG in use. Appreciate vascular assistance to remove Permacath * Empiric abx per ID/primary team * Nutrition per primary team * Dose medications for renal function * Epogen TID * Overall prognosis remains poor; will continue to follow for ESRD needs while inpatient. Subjective Date of service: 03/28/19 Principal diagnosis: respiratory failure Interval history: no acute issues noted overnight. tolerating HD sessions per HD nurses Objective - Exam Narrative Exam: General appearance: chronically ill, intubated, frail EENT: normocephalic Neck: ETT in place Respiratory: coarse mechanical breath sounds bilaterally Cardiology: regular, S1S2, no edema Gastrointestinal: PEG and colostomy noted Integumentary: warm and dry Psychiatric: unable to assess - Vital Signs Vital signs: Vital Signs - 12hr 03/28/19 03/28/19 03/28/19 05:00 06:00 07:00 Temperature Pulse Rate 102 H 103 H 102 H Pulse Rate [ Anterior Bilateral Throughout] Pulse Rate [ From Monitor] Respiratory 21 17 25 H Rate Respiratory Rate [Anterior Bilateral Throughout] Blood Pressure 102/54 116/64 117/65 O2 Sat by Pulse 100 100 100 Oximetry O2 Sat by Pulse Oximetry [ Assessment] 03/28/19 03/28/19 03/28/19 08:00 08:33 08:35 Temperature 98.4 F Pulse Rate 102 H Pulse Rate [ 102 H Anterior Bilateral Throughout] Pulse Rate [ 102 H From Monitor] Respiratory 23 Rate Respiratory 20 Rate [Anterior Bilateral Throughout] Blood Pressure 108/62 O2 Sat by Pulse 100 100 Oximetry O2 Sat by Pulse Oximetry [ Assessment] 03/28/19 03/28/19 03/28/19 08:56 09:00 10:00 Temperature Pulse Rate 102 H 102 H Pulse Rate [ Anterior Bilateral Throughout] Pulse Rate [ From Monitor] Respiratory 24 21 Rate Respiratory Rate [Anterior Bilateral Throughout] Blood Pressure 116/68 113/64 O2 Sat by Pulse 100 100 Oximetry O2 Sat by Pulse 100 Oximetry [ Assessment] 03/28/19 03/28/19 03/28/19 11:00 12:00 13:00 Temperature 98.1 F Pulse Rate 102 H 98 H 101 H Pulse Rate [ Anterior Bilateral Throughout] Pulse Rate [ 87 From Monitor] Respiratory 19 17 19 Rate Respiratory Rate [Anterior Bilateral Throughout] Blood Pressure 111/65 96/60 104/66 O2 Sat by Pulse 100 100 100 Oximetry O2 Sat by Pulse Oximetry [ Assessment] 03/28/19 03/28/19 03/28/19 14:00 14:50 14:51 Temperature Pulse Rate 101 H Pulse Rate [ 114 H Anterior Bilateral Throughout] Pulse Rate [ From Monitor] Respiratory 17 Rate Respiratory 16 Rate [Anterior Bilateral Throughout] Blood Pressure 108/61 O2 Sat by Pulse 100 Oximetry O2 Sat by Pulse 100 Oximetry [ Assessment] 03/28/19 15:00 Temperature Pulse Rate 100 H Pulse Rate [ Anterior Bilateral Throughout] Pulse Rate [ From Monitor] Respiratory 23 Rate Respiratory Rate [Anterior Bilateral Throughout] Blood Pressure 98/62 O2 Sat by Pulse 99 Oximetry O2 Sat by Pulse Oximetry [ Assessment] - Lab 03/26/19 05:35 03/26/19 05:35 Most recent lab results ABG pH 7.424 pH Units (7.350-7.450) 03/19/19 04:23 ABG pCO2 48.0 mm Hg 03/19/19 04:23 ABG pO2 78.3 mm Hg (80.0-90.0) L 03/19/19 04:23 ABG HCO3 30.7 mmol/L (20.0-26.0) H 03/19/19 04:23 ABG O2 Saturation 97.0 % (95.0-99.0) 03/19/19 04:23 Calcium 10.1 mg/dL (8.4-10.2) 03/26/19 05:35 Phosphorus 3.10 mg/dL (2.5-4.5) 03/15/19 04:38 Magnesium 2.00 mg/dL (1.7-2.3) 03/21/19 05:00 Medications & Allergies - Medications Allergies/Adverse Reactions: Allergies haloperidol [From Haldol] Adverse Reaction (Verified 03/13/18 12:10) Unknown haloperidol lactate [From Haldol] Adverse Reaction (Verified 03/13/18 12:10) Unknown Home Medications: Home Medications Medication Instructions Recorded Confirmed Last Taken Type risperiDONE [RisperDAL] 1 mg PO QAM 03/13/18 02/21/19 Unknown History Sertraline [Zoloft] 100 mg PO QDAY 08/26/18 02/21/19 Unknown History Polyethylene Glycol 3350 [Miralax 17 gm PO QDAY #30 packet 11/05/18 02/21/19 Unknown Rx 3350] Aspirin EC [Halfprin EC] 81 mg PO DAILY #30 11/19/18 02/21/19 Unknown Rx Docusate Sodium [Colace CAP] 100 mg PO BID #60 11/19/18 02/21/19 Unknown Rx Folic Acid [Folvite] 1 mg PO DAILY #30 tab 11/19/18 02/21/19 Unknown Rx Famotidine [Pepcid] 20 mg PO DAILY tablet 12/08/18 02/21/19 Unknown Rx Gabapentin [Neurontin] 100 mg PO QHS capsule 12/08/18 02/21/19 Unknown Rx Metoprolol [Lopressor TAB] 50 mg PO BID 30 Days tablet 12/08/18 02/21/19 Unknown Rx Sevelamer Carbonate [Renvela] 800 mg PO TIDWM tablet 12/08/18 02/21/19 Unknown Rx hydrALAZINE [Apresoline TAB] 100 mg PO Q8HR #120 tablet 12/08/18 02/21/19 Unknown Rx Acetaminophen [Acetaminophen TAB] 650 mg PO Q12H PRN 12/15/18 02/21/19 Unknown History Glucagon,Human Recombinant 1 mg IJ Q15MIN PRN 12/15/18 02/21/19 Unknown History [Glucagon Emergency Kit] Insulin Aspart [NovoLOG 100 See Protocol SQ QWEEK 12/15/18 02/21/19 Unknown History UNITS/ML VIAL] Active Medications: Generic Name Dose Route Start Last Admin Trade Name Freq PRN Reason Stop Dose Admin Albuterol/Ipratropium 1 ampul 02/24/19 20:00 03/28/19 14:49 Duoneb *Not For Prn Use* IH 1 ampul TIDRT SANCHEZ Administration Lipase/Protease/Amylase 1 each 03/05/19 14:04 [place] 10,500 Unit FEEDTUBE PRN PRN For Clogged Feeding Tube Epoetin Solitario 20,000 unit 03/24/19 11:17 Procrit IV UMA PRN hemodialysis Famotidine 20 mg 02/23/19 10:00 03/28/19 10:10 Pepcid PO 20 mg DAILY SANCHEZ Administration Heparin Sodium (Porcine) 5,000 unit 03/04/19 22:00 03/28/19 10:10 Heparin SUB-Q 5,000 unit Q12HR SANCHEZ Administration Hydrophilic Ointment 1 applic 02/21/19 18:24 03/05/19 08:16 Vaseline Lip Therapy TP 1 applic Q2HR PRN Administration Dry Lips Sodium Chloride 100 mls @ 999 mls/hr 02/26/19 09:00 Nacl 0.9% IV UMA PRN Hypotension Norepinephrine 8 mg/ Sodium 250 mls @ 3.75 mls/hr 03/18/19 13:00 03/19/19 09:17 Chloride IV 0 mcg/min TITR SANCHEZ 0 mls/hr Titration Protocol 2 MCG/MIN Insulin Human Regular 0 units 02/26/19 12:00 03/28/19 12:30 Humulin R SUB-Q Not Given Q6HR SANCHEZ Protocol Metoprolol Tartrate 2.5 mg 02/28/19 12:06 03/15/19 05:15 Lopressor IV 2.5 mg Q4HR PRN Administration Tachycardia Multi-Ingred Cream/Lotion/Oil/Oint 1 applic 02/21/19 18:24 Artificial Tears Ophth Oint OU Q4HR PRN Dry Eye(s) Risperidone 1 mg 02/25/19 13:00 03/28/19 10:10 Risperdal PO 1 mg DAILY SANCHEZ Administration Scopolamine 1 each 03/13/19 04:00 03/28/19 06:39 Transderm-Scop TD 1 each Q3D SANCHEZ Administration Sertraline HCl 100 mg 02/25/19 13:00 03/28/19 10:10 Zoloft PO 100 mg DAILY SANCHEZ Administration Simple Syrup 15 ml 03/05/19 14:04 Simple Syrup FEEDTUBE PRN PRN Hypoglycemia Simple Syrup 30 ml 03/05/19 14:04 Simple Syrup FEEDTUBE PRN PRN Hypoglycemia Sodium Bicarbonate 325 mg 03/05/19 14:04 Sodium Bicarbonate FEEDTUBE PRN PRN For Clogged Feeding Tube Tramadol HCl 50 mg 03/05/19 10:08 03/28/19 15:53 Ultram PO 50 mg Q6H PRN Administration Pain, Moderate (4-6) Trimethoprim/Sulfamethoxazole 160 mg 03/19/19 15:00 03/28/19 10:10 Bactrim 200-40 Mg/5 Ml PO 03/28/19 23:59 160 mg Q24HR SANCHEZ Administration
[2019-03-29] MEDS: INSULIN REGULAR, HUMAN 100 UNITS/1 ML SUB-Q SCH ×3 (01:00→18:15)
[2019-03-29] MEDS: IPRATROPIUM/ALBUTEROL SULFATE 3 ML AMPUL.NEB IH SCH ×3 (08:09→20:47)
[2019-03-29] MEDS: FAMOTIDINE 20 MG TAB PO SCH (09:28)
[2019-03-29] MEDS: risperiDONE 1 MG TAB PO SCH (09:28)
[2019-03-29] MEDS: HEPARIN 5,000 UNIT/1 ML VIAL SUB-Q SCH ×2 (09:28→21:30)
[2019-03-29] MEDS: SERTRALINE 100 MG TAB PO SCH (09:29)
--- NOTE | 2019-03-29 10:23 | Progress Note ---
Assessment and Plan Assessment and plan: Acute respiratory failure on mechanical ventilator >96 hrs Extubated ; history of tracheostomy on T piece Current management , nebulizers, Currently on trach/peg placed on 03/03. Now off vent, cont oxygen supplement, improving, on t piece, nebulizers, pulmonary critical following acute on chronic systolic CHF/ Acute pulmonary edema, HD per schedule Dilated CMP, EF 35-40% Continue diuresis, supportive care Acute metabolic encephalopathy, resolved, has baseline Dementia. --ESRD on hemodialysis per schedule nephrology following --Bilateral pleural effusions improved with HD --Permanent atrial fibrillation and flutter and hypercoaguable state Not on anticoagulation because of anemia thrombocytopenia rate control meds optimized --Diabetes mellitus type 2 Accu-Chek sliding scale coverage Insulin as needed --NSTEMI type 2 , Cardiology following --Schizophrenia:stable --Legally blind, supportive care --hypertension, Monitor BP,'s adjust medications as needed --Hypokalemia; corrected --Pulmonary hypertension; continue current management --Dysphagia s/p PEG tube; PEG tubes per protocol --Sacral decub ulcer; Wound care --Severe malnutrition /hypoalbuminemia with FTT: 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, 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 inpatient hospice was recommended, but family is not agreeable at this time. family meeting and ethic consult as needed History Interval history: Patient is 63-year-old -[place] male patient from [facility] with multiple co-morbidities including blindness, CVA, CHF, PPM/ICD, loop recorder since 2012 that is MRI compatible, IDDM type 2, sepsis left foot ulcer, afib, ESRD with complications on HD TTS, hypertension, AOCD and GERD who presented to the ED with hypotensive after intubation in the emergency room. diagnosed with fluid overload, pleural effusion. Patient has had recurrent admission in the hospital for similar reason and was recently discharged from the hospital following treatment of Severe Sepsis due to Necrotizing Unstagable sacral decubitus ulcer with ostemomylitis, has received multiple courses of broad spectrum abx. Acute hypoxic respiratory failure, status post intubation and ventilatory support, now off vent, on T-piece Hospitalist Physical - Constitutional Vitals: Temp Pulse Resp BP Pulse Ox 97.9 F 102 H 18 104/65 99 03/29/19 08:00 03/29/19 08:09 03/29/19 08:09 03/29/19 06:00 03/29/19 08:07 General appearance: Present: no acute distress, well-nourished, other (tracheostomy on T piece) - EENT Eyes: Present: PERRL, EOM intact ENT: hearing intact, clear oral mucosa, dentition normal - Neck Neck: Present: supple, normal ROM - Respiratory Respiratory effort: normal Respiratory: bilateral: CTA - Cardiovascular Rhythm: regular Heart Sounds: Present: S1 & S2. Absent: gallop, rub - Extremities Extremities: no ischemia, No edema, Full ROM - Abdominal General gastrointestinal: soft, non-tender, non-distended, normal bowel sounds - Integumentary Integumentary: Present: clear, warm, dry - Neurologic Neurologic: CNII-XII intact, moves all extremities Results - Labs CBC & Chem 7: 03/26/19 05:35 03/26/19 05:35 Labs: Laboratory Last Values WBC 8.8 K/mm3 (4.5-11.0) 03/26/19 05:35 RBC 3.01 M/mm3 (3.65-5.03) L 03/26/19 05:35 Hgb 8.1 gm/dl (11.8-15.2) L 03/26/19 05:35 Hct 25.7 % (35.5-45.6) L 03/26/19 05:35 MCV 85 fl (84-94) 03/26/19 05:35 MCH 27 pg (28-32) L 03/26/19 05:35 MCHC 32 % (32-34) 03/26/19 05:35 RDW 19.2 % (13.2-15.2) H 03/26/19 05:35 Plt Count 352 K/mm3 (140-440) 03/26/19 05:35 Lymph % (Auto) 11.4 % (13.4-35.0) L 03/26/19 05:35 [place] % (Auto) 5.9 % (0.0-7.3) 03/26/19 05:35 Eos % (Auto) 8.0 % (0.0-4.3) H 03/26/19 05:35 Baso % (Auto) 0.8 % (0.0-1.8) 03/26/19 05:35 Lymph # 1.0 K/mm3 (1.2-5.4) L 03/26/19 05:35 [place] # 0.5 K/mm3 (0.0-0.8) 03/26/19 05:35 Eos # 0.7 K/mm3 (0.0-0.4) H 03/26/19 05:35 Baso # 0.1 K/mm3 (0.0-0.1) 03/26/19 05:35 Add Manual Diff Complete 03/21/19 06:30 Total Counted 100 03/21/19 06:30 Seg Neutrophils % 73.9 % (40.0-70.0) H 03/26/19 05:35 Seg Neuts % (Manual) 81.0 % (40.0-70.0) H 03/21/19 06:30 0 % 03/21/19 06:30 8.0 % (13.4-35.0) L 03/21/19 06:30 Reactive Lymphs % (Man) 0 % 03/21/19 06:30 1.0 % (0.0-7.3) 03/21/19 06:30 8.0 % (0.0-4.3) H 03/21/19 06:30 1.0 % (0.0-1.8) 03/21/19 06:30 1.0 % 03/21/19 06:30 0 % 03/21/19 06:30 0 % 03/21/19 06:30 0 % 03/21/19 06:30 Nucleated RBC % Not Reportable 03/21/19 06:30 Seg Neutrophils # 6.5 K/mm3 (1.8-7.7) 03/26/19 05:35 Seg Neutrophils # Man 6.7 K/mm3 (1.8-7.7) 03/21/19 06:30 Band Neutrophils # 0.0 K/mm3 03/21/19 06:30 0.7 K/mm3 (1.2-5.4) L 03/21/19 06:30 Abs React Lymphs (Man) 0.0 K/mm3 03/21/19 06:30 0.1 K/mm3 (0.0-0.8) 03/21/19 06:30 0.7 K/mm3 (0.0-0.4) H 03/21/19 06:30 0.1 K/mm3 (0.0-0.1) 03/21/19 06:30 0.1 K/mm3 03/21/19 06:30 0.0 K/mm3 03/21/19 06:30 0.0 K/mm3 03/21/19 06:30 Blast Cells # 0.0 K/mm3 03/21/19 06:30 WBC Morphology Not Reportable 03/21/19 06:30 Hypersegmented Neuts Not Reportable 03/21/19 06:30 Hyposegmented Neuts Not Reportable 03/21/19 06:30 Hypogranular Neuts Not Reportable 03/21/19 06:30 Not Reportable 03/21/19 06:30 Not Reportable 03/21/19 06:30 Not Reportable 03/21/19 06:30 Not Reportable 03/21/19 06:30 Not Reportable 03/21/19 06:30 Not Reportable 03/21/19 06:30 Consistent w auto 03/21/19 06:30 Not Reportable 03/21/19 06:30 Plt Clumps, EDTA Not Reportable 03/21/19 06:30 Not Reportable 03/21/19 06:30 Not Reportable 03/21/19 06:30 Not Reportable 03/21/19 06:30 Plt Morphology Comment Not Reportable 03/21/19 06:30 RBC Morphology Not Reportable 03/21/19 06:30 Dimorphic RBCs Not Reportable 03/21/19 06:30 Not Reportable 03/21/19 06:30 Few 03/21/19 06:30 Few 03/21/19 06:30 Few 03/21/19 06:30 Not Reportable 03/21/19 06:30 Not Reportable 03/21/19 06:30 Not Reportable 03/21/19 06:30 Not Reportable 03/21/19 06:30 Not Reportable 03/21/19 06:30 1+ 03/21/19 06:30 Not Reportable 03/21/19 06:30 Few 03/21/19 06:30 Not Reportable 03/21/19 06:30 Not Reportable 03/21/19 06:30 Not Reportable 03/21/19 06:30 Not Reportable 03/21/19 06:30 Not Reportable 03/21/19 06:30 Not Reportable 03/21/19 06:30 Not Reportable 03/21/19 06:30 Acanthocytes (Spur) Not Reportable 03/21/19 06:30 Rouleaux Not Reportable 03/21/19 06:30 Not Reportable 03/21/19 06:30 Not Reportable 03/21/19 06:30 Not Reportable 03/21/19 06:30 Not Reportable 03/21/19 06:30 Hem Pathologist Commnt No 03/21/19 06:30 PT 16.3 Sec. (12.2-14.9) H 03/01/19 09:39 INR 1.35 (0.87-1.13) H 03/01/19 09:39 APTT 33.7 Sec. (24.2-36.6) 02/21/19 18:30 2987.82 ng/mlDDU (0-234) H 02/22/19 05:54 POC ABG pH 7.510 (7.35-7.45) H 03/18/19 06:38 ABG pH 7.424 pH Units (7.350-7.450) 03/19/19 04:23 POC ABG pCO2 38.9 (35-45) 03/18/19 06:38 ABG pCO2 48.0 mm Hg 03/19/19 04:23 POC ABG pO2 164 (80-105) H 03/18/19 06:38 ABG pO2 78.3 mm Hg (80.0-90.0) L 03/19/19 04:23 POC ABG HCO3 31.0 (22-26 mml/L) 03/18/19 06:38 ABG HCO3 30.7 mmol/L (20.0-26.0) H 03/19/19 04:23 POC ABG Total CO2 32 (23-27mmol/L) 03/18/19 06:38 POC ABG O2 Sat 100 03/18/19 06:38 ABG O2 Saturation 97.0 % (95.0-99.0) 03/19/19 04:23 ABG O2 Content 7.9 (0.0-44) 03/19/19 04:23 POC ABG Base Excess 8 ((-2) - (+3)mmol/L) 03/18/19 06:38 ABG Base Excess 5.8 mmol/L (-2.0-3.0) H 03/19/19 04:23 ABG Hemoglobin 5.8 gm/dl (14.0-18.0) L 03/19/19 04:23 ABG Carboxyhemoglobin 2.0 % (0.0-5.0) 03/19/19 04:23 ABG Methemoglobin 0.4 % (0.0-1.5) 03/19/19 04:23 94.6 % (95.0-99.0) L 03/19/19 04:23 35 % 03/19/19 04:23 Sodium 139 mmol/L (137-145) 03/26/19 05:35 Potassium 4.6 mmol/L (3.6-5.0) 03/26/19 05:35 Chloride 94.9 mmol/L (98-107) L 03/26/19 05:35 Carbon Dioxide 31 mmol/L (22-30) H 03/26/19 05:35 18 mmol/L 03/26/19 05:35 BUN 44 mg/dL (9-20) H 03/26/19 05:35 2.0 mg/dL (0.8-1.5) H 03/26/19 05:35 Estimated GFR 41 ml/min 03/26/19 05:35 22 % 03/26/19 05:35 Glucose 96 mg/dL (75-100) 03/26/19 05:35 POC Glucose 112 (70-105) H 03/29/19 05:47 Lactic Acid 1.00 mmol/L (0.7-2.0) 02/21/19 20:58 Calcium 10.1 mg/dL (8.4-10.2) 03/26/19 05:35 Phosphorus 3.10 mg/dL (2.5-4.5) 03/15/19 04:38 Magnesium 2.00 mg/dL (1.7-2.3) 03/21/19 05:00 0.30 mg/dL (0.1-1.2) 03/21/19 05:00 AST 23 units/L (5-40) 03/21/19 05:00 ALT 18 units/L (7-56) 03/21/19 05:00 212 units/L (35-129) H 03/21/19 05:00 28.0 umol/L (25-60) 02/21/19 20:04 64 units/L (55-170) 02/22/19 03:42 CK-MB (CK-2) 3.7 ng/mL (0.0-4.0) 02/22/19 03:42 CK-MB (CK-2) Rel Index 5.7 (0-4) H 02/22/19 03:42 0.193 ng/mL (0.00-0.029) H* 02/22/19 03:42 6.7 g/dL (6.3-8.2) 03/21/19 05:00 2.2 g/dL (3.9-5) L 03/21/19 05:00 0.5 % 03/21/19 05:00 Triglycerides 51 mg/dL (2-149) 02/21/19 18:30 Cholesterol 82 mg/dL (50-199) 02/21/19 18:30 36 mg/dL (50-130) L 02/21/19 18:30 40 mg/dL (40-59) 02/21/19 18:30 2.05 % 02/21/19 18:30 TSH 2.760 mlU/mL (0.270-4.200) 02/21/19 20:04 PTH Intact 267.6 pg/mL (15-65) H 03/02/19 05:15 Salicylates < 0.3 mg/dL (2.8-20.0) L 02/21/19 20:04 Acetaminophen < 5.0 ug/mL (10.0-30.0) L 02/21/19 20:04 Hepatitis A IgM Ab Non-reactive (NonReactive) 02/23/19 11:20 Hep Bs Antigen Non-reactive (Negative) 02/23/19 11:20 Hep B Core IgM Ab Non-reactive (NonReactive) 02/23/19 11:20 Non-reactive (NonReactive) 02/23/19 11:20 Blood Type O POSITIVE 03/22/19 08:48 Antibody Screen Negative 03/22/19 08:48 Crossmatch See Detail 03/22/19 08:48 Active Medications - Current Medications Current Medications: Generic Name Dose Route Start Last Admin Trade Name Freq PRN Reason Stop Dose Admin Albuterol/Ipratropium 1 ampul 02/24/19 20:00 03/29/19 08:09 Duoneb *Not For Prn Use* IH 1 ampul TIDRT SANCHEZ Administration Lipase/Protease/Amylase 1 each 03/05/19 14:[address] 10,500 Unit FEEDTUBE PRN PRN For Clogged Feeding Tube Epoetin Solitario 20,000 unit 03/24/19 11:17 Procrit IV UMA PRN hemodialysis Famotidine 20 mg 02/23/19 10:00 03/29/19 09:28 Pepcid PO 20 mg DAILY SANCHEZ Administration Heparin Sodium (Porcine) 5,000 unit 03/04/19 22:00 03/29/19 09:28 Heparin SUB-Q 5,000 unit Q12HR SANCHEZ Administration Hydrophilic Ointment 1 applic 02/21/19 18:24 03/05/19 08:16 Vaseline Lip Therapy TP 1 applic Q2HR PRN Administration Dry Lips Sodium Chloride 100 mls @ 999 mls/hr 02/26/19 09:00 Nacl 0.9% IV UMA PRN Hypotension Insulin Human Regular 0 units 02/26/19 12:00 03/29/19 01:00 Humulin R SUB-Q Not Given Q6HR [facility] Protocol Metoprolol Tartrate 2.5 mg 02/28/19 12:06 03/15/19 05:15 Lopressor IV 2.5 mg Q4HR PRN Administration Tachycardia Multi-Ingred Cream/Lotion/Oil/Oint 1 applic 02/21/19 18:24 Artificial Tears Ophth Oint OU Q4HR PRN Dry Eye(s) Risperidone 1 mg 02/25/19 13:00 09/08/19 09:28 Risperdal PO 1 mg DAILY SANCHEZ Administration Scopolamine 1 each 03/13/19 04:00 03/28/19 06:39 Transderm-Scop TD 1 each Q3D SANCHEZ Administration Sertraline HCl 100 mg 02/25/19 13:00 03/29/19 09:29 Zoloft PO 100 mg DAILY SANCHEZ Administration Simple Syrup 15 ml 03/05/19 14:04 Simple Syrup FEEDTUBE PRN PRN Hypoglycemia Simple Syrup 30 ml 03/05/19 14:04 Simple Syrup FEEDTUBE PRN PRN Hypoglycemia Sodium Bicarbonate 325 mg 03/05/19 14:04 Sodium Bicarbonate FEEDTUBE PRN PRN For Clogged Feeding Tube Tramadol HCl 50 mg 03/05/19 10:08 03/28/19 21:38 Ultram PO 50 mg Q6H PRN Administration Pain, Moderate (4-6) Nutrition/Malnutrition Assess - Dietary Evaluation Nutrition/Malnutrition Findings: Nutrition Notes Start: 02/22/19 12:51 Freq: Status: Active Protocol: Document 03/28/19 11:19 LM (Rec: 03/28/19 11:24 LM [id number]) Nutrition Notes Labs/Tests Reviewed Pertinent Medications Reviewed Height 5 ft 10 in Weight 74.7 kg [place] Body Weight (kg) 75.45 BMI 23.6 Subjective/Other Information Nepro running at 50 ml/hr at time of visit. Pt is tolerating TF. Percent of energy/protein needs met: 96%/100% Burn Absent Trauma Absent #2 Nutrition Diagnosis Increased nutrient needs ( specify in comment below) Diagnosis Progress(for reassessment Continues documentation) #1 Nutrition Diagnosis Inadequate oral intake Diagnosis Progress(for reassessment Continues documentation) Is patient on ventilator? No Is Patient Ambulatory and/or Out of Bed No REE-([place]-confined to bed) 1857.144 Kcal/Kg value to use for calculation 30 Approximate Energy Requirements Using 2241 kcal/Kg Calculation Used for Recommendations Kcal/kg Additional Notes Protein Needs: 90-112g (1.2-1. 5g/kg) Fluid Needs: 1-1.5 L/day Nutrition Intervention Change Diet Order: Continue TF Nutrition Support: Nepro with Carbsteady 1.8 at 50 ml/hr Flush 200 ml q4hr Kcal 2,160 Protein (gm) 97 Fluid (mL) 872 Add Supplement/Snack (indicate name/kcal Abhilash BID /protein ) Provides kCal: 190 Provides Protein (gm) 5 Goal #1 TF tolerance Goal #2 Continue to meet at least 80% of calorie and protein needs via TF Anticipated Discharge Needs: TF Follow-Up By: 04/03/19 Additional Comments F/U for new TF rate/tolerance
--- NOTE | 2019-03-29 11:35 | Progress Note ---
Assessment and Plan Assessment: * End stage renal disease (outpatient TTS schedule) * Acute hypoxic respiratory failure on mechanical ventilation * Atrial fibrillation * History of CVA * Anemia secondary to ESRD * Secondary hyperparathyroidism Plan * Continue HD MWF schedule for now while inpatient, HD tomorrow * UF as tolerated * AVG in use. Appreciate vascular assistance to remove Permacath * Empiric abx per ID/primary team * Nutrition per primary team * Dose medications for renal function * Epogen TID * Overall prognosis remains poor; will continue to follow for ESRD needs while inpatient. Subjective Date of service: 03/29/19 Principal diagnosis: respiratory failure Interval history: no acute issues noted overnight. tolerating HD sessions per HD nurses Objective - Exam Narrative Exam: General appearance: chronically ill, intubated, frail EENT: normocephalic Neck: ETT in place Respiratory: coarse mechanical breath sounds bilaterally Cardiology: regular, S1S2, no edema Gastrointestinal: PEG and colostomy noted Integumentary: warm and dry Psychiatric: unable to assess - Vital Signs Vital signs: Vital Signs - 12hr 03/28/19 03/28/19 03/29/19 23:36 23:50 00:00 Temperature 97.7 F Pulse Rate 99 H 99 H Pulse Rate [ Anterior Bilateral Throughout] Pulse Rate [ 100 H From Monitor] Respiratory 25 H 21 Rate Respiratory Rate [Anterior Bilateral Throughout] Blood Pressure 105/70 105/70 O2 Sat by Pulse 99 100 Oximetry O2 Sat by Pulse Oximetry [ Assessment] 03/29/19 03/29/19 03/29/19 01:00 02:00 03:00 Temperature Pulse Rate 99 H 110 H 99 H Pulse Rate [ Anterior Bilateral Throughout] Pulse Rate [ From Monitor] Respiratory 18 22 13 Rate Respiratory Rate [Anterior Bilateral Throughout] Blood Pressure 113/66 115/70 117/71 O2 Sat by Pulse 98 100 100 Oximetry O2 Sat by Pulse Oximetry [ Assessment] 03/29/19 03/29/19 03/29/19 03:59 04:00 05:00 Temperature 97.3 F L Pulse Rate 123 H 120 H Pulse Rate [ Anterior Bilateral Throughout] Pulse Rate [ 122 H From Monitor] Respiratory 22 21 16 Rate Respiratory Rate [Anterior Bilateral Throughout] Blood Pressure 107/51 104/55 O2 Sat by Pulse 98 97 99 Oximetry O2 Sat by Pulse Oximetry [ Assessment] 03/29/19 03/29/19 03/29/19 05:30 06:00 07:00 Temperature Pulse Rate 122 H 109 H Pulse Rate [ Anterior Bilateral Throughout] Pulse Rate [ From Monitor] Respiratory 26 H 20 Rate Respiratory Rate [Anterior Bilateral Throughout] Blood Pressure 104/65 102/62 O2 Sat by Pulse 99 98 Oximetry O2 Sat by Pulse 100 Oximetry [ Assessment] 03/29/19 03/29/19 03/29/19 08:00 08:07 08:09 Temperature 97.9 F Pulse Rate 109 H Pulse Rate [ 102 H Anterior Bilateral Throughout] Pulse Rate [ 103 H From Monitor] Respiratory 19 Rate Respiratory 18 Rate [Anterior Bilateral Throughout] Blood Pressure 95/59 O2 Sat by Pulse 99 99 Oximetry O2 Sat by Pulse Oximetry [ Assessment] 03/29/19 03/29/19 09:00 10:00 Temperature Pulse Rate 94 H 98 H Pulse Rate [ Anterior Bilateral Throughout] Pulse Rate [ From Monitor] Respiratory 19 20 Rate Respiratory Rate [Anterior Bilateral Throughout] Blood Pressure 95/59 100/58 O2 Sat by Pulse 100 99 Oximetry O2 Sat by Pulse Oximetry [ Assessment] - Lab 03/26/19 05:35 03/26/19 05:35 Most recent lab results ABG pH 7.424 pH Units (7.350-7.450) 03/19/19 04:23 ABG pCO2 48.0 mm Hg 03/19/19 04:23 ABG pO2 78.3 mm Hg (80.0-90.0) L 03/19/19 04:23 ABG HCO3 30.7 mmol/L (20.0-26.0) H 03/19/19 04:23 ABG O2 Saturation 97.0 % (95.0-99.0) 03/19/19 04:23 Calcium 10.1 mg/dL (8.4-10.2) 03/26/19 05:35 Phosphorus 3.10 mg/dL (2.5-4.5) 03/15/19 04:38 Magnesium 2.00 mg/dL (1.7-2.3) 03/21/19 05:00 Medications & Allergies - Medications Allergies/Adverse Reactions: Allergies haloperidol [From Haldol] Adverse Reaction (Verified 03/13/18 12:10) Unknown haloperidol lactate [From Haldol] Adverse Reaction (Verified 03/13/18 12:10) Unknown Home Medications: Home Medications Medication Instructions Recorded Confirmed Last Taken Type risperiDONE [RisperDAL] 1 mg PO QAM 03/13/18 02/21/19 Unknown History Sertraline [Zoloft] 100 mg PO QDAY 08/26/18 02/21/19 Unknown History Polyethylene Glycol 3350 [Miralax 17 gm PO QDAY #30 packet 11/05/18 02/21/19 Unknown Rx 3350] Aspirin EC [Halfprin EC] 81 mg PO DAILY #30 11/19/18 02/21/19 Unknown Rx Docusate Sodium [Colace CAP] 100 mg PO BID #60 11/19/18 02/21/19 Unknown Rx Folic Acid [Folvite] 1 mg PO DAILY #30 tab 11/19/18 02/21/19 Unknown Rx Famotidine [Pepcid] 20 mg PO DAILY tablet 12/08/18 02/21/19 Unknown Rx Gabapentin [Neurontin] 100 mg PO QHS capsule 12/08/18 02/21/19 Unknown Rx Metoprolol [Lopressor TAB] 50 mg PO BID 30 Days tablet 12/08/18 02/21/19 Unknown Rx Sevelamer Carbonate [Renvela] 800 mg PO TIDWM tablet 12/08/18 02/21/19 Unknown Rx hydrALAZINE [Apresoline TAB] 100 mg PO Q8HR #120 tablet 12/08/18 02/21/19 Unknown Rx Acetaminophen [Acetaminophen TAB] 650 mg PO Q12H PRN 12/15/18 02/21/19 Unknown History Glucagon,Human Recombinant 1 mg IJ Q15MIN PRN 12/15/18 02/21/19 Unknown History [Glucagon Emergency Kit] Insulin Aspart [NovoLOG 100 See Protocol SQ QWEEK 12/15/18 02/21/19 Unknown History UNITS/ML VIAL] Active Medications: Generic Name Dose Route Start Last Admin Trade Name Freq PRN Reason Stop Dose Admin Albuterol/Ipratropium 1 ampul 02/24/19 20:00 03/29/19 08:09 Duoneb *Not For Prn Use* IH 1 ampul TIDRT SANCHEZ Administration Lipase/Protease/Amylase 1 each 03/05/19 14:04 Pancrejewel Barrientos 10,500 Unit FEEDTUBE PRN PRN For Clogged Feeding Tube Epoetin Solitario 20,000 unit 03/24/19 11:17 Procrit IV UMA PRN hemodialysis Famotidine 20 mg 02/23/19 10:00 03/29/19 09:28 Pepcid PO 20 mg DAILY SANCHEZ Administration Heparin Sodium (Porcine) 5,000 unit 03/04/19 22:00 03/29/19 09:28 Heparin SUB-Q 5,000 unit Q12HR SANCHEZ Administration Hydrophilic Ointment 1 applic 02/21/19 18:24 03/05/19 08:16 Vaseline Lip Therapy TP 1 applic Q2HR PRN Administration Dry Lips Sodium Chloride 100 mls @ 999 mls/hr 02/26/19 09:00 Nacl 0.9% IV UMA PRN Hypotension Insulin Human Regular 0 units 02/26/19 12:00 03/29/19 01:00 Humulin R SUB-Q Not Given Q6HR [facility] Protocol Metoprolol Tartrate 2.5 mg 02/28/19 12:06 03/15/19 05:15 Lopressor IV 2.5 mg Q4HR PRN Administration Tachycardia Multi-Ingred Cream/Lotion/Oil/Oint 1 applic 02/21/19 18:24 Artificial Tears Ophth Oint OU Q4HR PRN Dry Eye(s) Risperidone 1 mg 02/25/19 13:00 03/29/19 09:28 Risperdal PO 1 mg DAILY SANCHEZ Administration Scopolamine 1 each 03/13/19 04:00 03/28/19 06:39 Transderm-Scop TD 1 each Q3D SANCHEZ Administration Sertraline HCl 100 mg 02/25/19 13:00 03/29/19 09:29 Zoloft PO 100 mg DAILY SANCHEZ Administration Simple Syrup 15 ml 03/05/19 14:04 Simple Syrup FEEDTUBE PRN PRN Hypoglycemia Simple Syrup 30 ml 03/05/19 14:04 Simple Syrup FEEDTUBE PRN PRN Hypoglycemia Sodium Bicarbonate 325 mg 03/05/19 14:04 Sodium Bicarbonate FEEDTUBE PRN PRN For Clogged Feeding Tube Tramadol HCl 50 mg 03/05/19 10:08 03/28/19 21:38 Ultram PO 50 mg Q6H PRN Administration Pain, Moderate (4-6)
--- NOTE | 2019-03-29 12:02 | Progress Note ---
Assessment and Plan 63 y/o male with multiple medical issues admitted with altered mental status, acute respiratory failure requiring mechanical ventilation No new recommendations for today. Please see below. 1. 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 Continue T-piece 3. HD per renal 4. Awaiting placement. Subjective Date of service: 03/29/19 Principal diagnosis: respiratory failure Interval history: no acute events. Pulm status is unchanged. Objective Vital Signs - 12hr 03/29/19 03/29/19 03/29/19 01:00 02:00 03:00 Temperature Pulse Rate 99 H 110 H 99 H Pulse Rate [ Anterior Bilateral Throughout] Pulse Rate [ From Monitor] Respiratory 18 22 13 Rate Respiratory Rate [Anterior Bilateral Throughout] Blood Pressure 113/66 115/70 117/71 O2 Sat by Pulse 98 100 100 Oximetry O2 Sat by Pulse Oximetry [ Assessment] 03/29/19 03/29/19 03/29/19 03:59 04:00 05:00 Temperature 97.3 F L Pulse Rate 123 H 120 H Pulse Rate [ Anterior Bilateral Throughout] Pulse Rate [ 122 H From Monitor] Respiratory 22 21 16 Rate Respiratory Rate [Anterior Bilateral Throughout] Blood Pressure 107/51 104/55 O2 Sat by Pulse 98 97 99 Oximetry O2 Sat by Pulse Oximetry [ Assessment] 03/29/19 03/29/19 03/29/19 05:30 06:00 07:00 Temperature Pulse Rate 122 H 109 H Pulse Rate [ Anterior Bilateral Throughout] Pulse Rate [ From Monitor] Respiratory 26 H 20 Rate Respiratory Rate [Anterior Bilateral Throughout] Blood Pressure 104/65 102/62 O2 Sat by Pulse 99 98 Oximetry O2 Sat by Pulse 100 Oximetry [ Assessment] 03/29/19 03/29/19 03/29/19 08:00 08:07 08:09 Temperature 97.9 F Pulse Rate 109 H Pulse Rate [ 102 H Anterior Bilateral Throughout] Pulse Rate [ 103 H From Monitor] Respiratory 19 Rate Respiratory 18 Rate [Anterior Bilateral Throughout] Blood Pressure 95/59 O2 Sat by Pulse 99 99 Oximetry O2 Sat by Pulse Oximetry [ Assessment] 03/29/19 03/29/19 09:00 10:00 Temperature Pulse Rate 94 H 98 H Pulse Rate [ Anterior Bilateral Throughout] Pulse Rate [ From Monitor] Respiratory 19 20 Rate Respiratory Rate [Anterior Bilateral Throughout] Blood Pressure 95/59 100/58 O2 Sat by Pulse 100 99 Oximetry O2 Sat by Pulse Oximetry [ Assessment] Constitutional: no acute distress, alert Eyes: non-icteric ENT: oropharynx moist Neck: supple Effort: normal Ascultation: Bilateral: diminished breath sounds, other (coarse BS bilaterally) Percussion: Bilateral: not dull Cardiovascular: other (tachy, RR; no mrg) Gastrointestinal: normoactive bowel sounds, soft, non-tender, non-distended, other (ostomy in place, brown stool) Extremities: no cyanosis, no edema, pink and warm Neurologic: other (mild weakness LUE, o/w nonfocal) Psychiatric: other (unable to assess) CBC and BMP: 03/26/19 05:35 03/26/19 05:35 ABG, PT/INR, D-dimer: ABG POC ABG pH 7.510 (7.35-7.45) H 03/18/19 06:38 ABG pH 7.424 pH Units (7.350-7.450) 03/19/19 04:23 POC ABG pCO2 38.9 (35-45) 03/18/19 06:38 ABG pCO2 48.0 mm Hg 03/19/19 04:23 POC ABG pO2 164 (80-105) H 03/18/19 06:38 ABG pO2 78.3 mm Hg (80.0-90.0) L 03/19/19 04:23 POC ABG HCO3 31.0 (22-26 mml/L) 03/18/19 06:38 POC ABG Total CO2 32 (23-27mmol/L) 03/18/19 06:38 POC ABG O2 Sat 100 03/18/19 06:38 ABG O2 Saturation 97.0 % (95.0-99.0) 03/19/19 04:23 PT/INR, D-dimer PT 16.3 Sec. (12.2-14.9) H 03/01/19 09:39 INR 1.35 (0.87-1.13) H 03/01/19 09:39 2987.82 ng/mlDDU (0-234) H 02/22/19 05:54 Abnormal lab findings: Abnormal Labs 02/21/19 02/21/19 02/21/19 18:30 18:30 18:30 WBC RBC 3.26 L Hgb 8.8 L Hct 29.0 L MCH 27 L MCHC 30 L RDW 19.1 H Lymph % (Auto) 6.1 L [place] % (Auto) Eos % (Auto) Lymph # 0.4 L [place] # Eos # Seg Neutrophils % 86.2 H Seg Neuts % (Manual) Lymphocytes % (Manual) Eosinophils % (Manual) Seg Neutrophils # Lymphocytes # (Manual) Eosinophils # (Manual) PT INR D-Dimer POC ABG pH POC ABG pCO2 POC ABG pO2 ABG pO2 ABG HCO3 ABG Base Excess ABG Hemoglobin Oxyhemoglobin Sodium 133 L Potassium 3.3 L Chloride 93.1 L Carbon Dioxide 33 H BUN Creatinine Glucose 161 H POC Glucose Calcium Phosphorus ALT Alkaline Phosphatase 136 H Total Creatine Kinase 37 L CK-MB (CK-2) Rel Index Troponin T 0.192 H* Albumin 2.4 L LDL Cholesterol Direct 36 L PTH Intact Salicylates Acetaminophen Crossmatch 02/21/19 02/21/19 02/21/19 18:42 20:04 20:04 WBC RBC Hgb Hct MCH MCHC RDW Lymph % (Auto) [place] % (Auto) Eos % (Auto) Lymph # [place] # Eos # Seg Neutrophils % Seg Neuts % (Manual) Lymphocytes % (Manual) Eosinophils % (Manual) Seg Neutrophils # Lymphocytes # (Manual) Eosinophils # (Manual) PT INR D-Dimer POC ABG pH POC ABG pCO2 56.7 H POC ABG pO2 291 H ABG pO2 ABG HCO3 ABG Base Excess ABG Hemoglobin Oxyhemoglobin Sodium Potassium Chloride Carbon Dioxide BUN Creatinine Glucose POC Glucose Calcium Phosphorus ALT Alkaline Phosphatase Total Creatine Kinase CK-MB (CK-2) Rel Index Troponin T Albumin LDL Cholesterol Direct PTH Intact Salicylates < 0.3 L Acetaminophen < 5.0 L Crossmatch 02/21/19 02/22/19 02/22/19 22:35 03:42 03:42 WBC RBC 3.20 L Hgb 8.8 L Hct 27.6 L MCH MCHC RDW 18.9 H Lymph % (Auto) 7.4 L [place] % (Auto) Eos % (Auto) Lymph # 0.7 L [place] # Eos # Seg Neutrophils % 84.7 H Seg Neuts % (Manual) Lymphocytes % (Manual) Eosinophils % (Manual) Seg Neutrophils # Lymphocytes # (Manual) Eosinophils # (Manual) PT INR D-Dimer POC ABG pH POC ABG pCO2 POC ABG pO2 ABG pO2 ABG HCO3 ABG Base Excess ABG Hemoglobin Oxyhemoglobin Sodium 134 L Potassium 2.6 L* D Chloride Carbon Dioxide BUN Creatinine Glucose POC Glucose Calcium Phosphorus ALT Alkaline Phosphatase Total Creatine Kinase CK-MB (CK-2) Rel Index 5.2 H Troponin T 0.202 H* Albumin LDL Cholesterol Direct PTH Intact Salicylates Acetaminophen Crossmatch 02/22/19 02/22/19 02/22/19 03:42 05:54 09:04 WBC RBC Hgb Hct MCH MCHC RDW Lymph % (Auto) [place] % (Auto) Eos % (Auto) Lymph # [place] # Eos # Seg Neutrophils % Seg Neuts % (Manual) Lymphocytes % (Manual) Eosinophils % (Manual) Seg Neutrophils # Lymphocytes # (Manual) Eosinophils # (Manual) PT INR D-Dimer 2987.82 H POC ABG pH 7.451 H POC ABG pCO2 POC ABG pO2 ABG pO2 ABG HCO3 ABG Base Excess ABG Hemoglobin Oxyhemoglobin Sodium Potassium Chloride Carbon Dioxide BUN Creatinine Glucose POC Glucose Calcium Phosphorus ALT Alkaline Phosphatase Total Creatine Kinase CK-MB (CK-2) Rel Index 5.7 H Troponin T 0.193 H* Albumin LDL Cholesterol Direct PTH Intact Salicylates Acetaminophen Crossmatch 02/22/19 02/22/19 02/23/19 10:36 23:56 00:52 WBC RBC Hgb Hct MCH MCHC RDW Lymph % (Auto) [place] % (Auto) Eos % (Auto) Lymph # [place] # Eos # Seg Neutrophils % Seg Neuts % (Manual) Lymphocytes % (Manual) Eosinophils % (Manual) Seg Neutrophils # Lymphocytes # (Manual) Eosinophils # (Manual) PT INR D-Dimer POC ABG pH POC ABG pCO2 POC ABG pO2 ABG pO2 ABG HCO3 ABG Base Excess ABG Hemoglobin Oxyhemoglobin Sodium Potassium 3.1 L Chloride Carbon Dioxide BUN Creatinine Glucose POC Glucose 58 L 111 H Calcium Phosphorus ALT Alkaline Phosphatase Total Creatine Kinase CK-MB (CK-2) Rel Index Troponin T Albumin LDL Cholesterol Direct PTH Intact Salicylates Acetaminophen Crossmatch 02/23/19 02/23/19 02/23/19 05:00 06:35 14:26 WBC RBC Hgb Hct MCH MCHC RDW Lymph % (Auto) [place] % (Auto) Eos % (Auto) Lymph # [place] # Eos # Seg Neutrophils % Seg Neuts % (Manual) Lymphocytes % (Manual) Eosinophils % (Manual) Seg Neutrophils # Lymphocytes # (Manual) Eosinophils # (Manual) PT INR D-Dimer POC ABG pH POC ABG pCO2 POC ABG pO2 ABG pO2 ABG HCO3 ABG Base Excess ABG Hemoglobin Oxyhemoglobin Sodium 135 L Potassium 3.1 L Chloride Carbon Dioxide BUN 21 H Creatinine 2.0 H Glucose 57 L POC Glucose 64 L 62 L Calcium Phosphorus ALT Alkaline Phosphatase Total Creatine Kinase CK-MB (CK-2) Rel Index Troponin T Albumin LDL Cholesterol Direct PTH Intact Salicylates Acetaminophen Crossmatch 02/24/19 02/24/19 02/24/19 02:11 04:12 04:55 WBC RBC 2.84 L Hgb 7.8 L Hct 24.5 L MCH MCHC RDW 19.5 H Lymph % (Auto) [place] % (Auto) Eos % (Auto) Lymph # [place] # Eos # Seg Neutrophils % Seg Neuts % (Manual) Lymphocytes % (Manual) Eosinophils % (Manual) Seg Neutrophils # Lymphocytes # (Manual) Eosinophils # (Manual) PT INR D-Dimer POC ABG pH 7.511 H POC ABG pCO2 33.9 L POC ABG pO2 62 L ABG pO2 ABG HCO3 ABG Base Excess ABG Hemoglobin Oxyhemoglobin Sodium Potassium Chloride Carbon Dioxide BUN Creatinine Glucose POC Glucose 69 L Calcium Phosphorus ALT Alkaline Phosphatase Total Creatine Kinase CK-MB (CK-2) Rel Index Troponin T Albumin LDL Cholesterol Direct PTH Intact Salicylates Acetaminophen Crossmatch 02/24/19 02/24/19 02/25/19 04:55 05:41 04:45 WBC RBC Hgb Hct MCH MCHC RDW Lymph % (Auto) [place] % (Auto) Eos % (Auto) Lymph # [place] # Eos # Seg Neutrophils % Seg Neuts % (Manual) Lymphocytes % (Manual) Eosinophils % (Manual) Seg Neutrophils # Lymphocytes # (Manual) Eosinophils # (Manual) PT INR D-Dimer POC ABG pH 7.466 H POC ABG pCO2 POC ABG pO2 75 L ABG pO2 ABG HCO3 ABG Base Excess ABG Hemoglobin Oxyhemoglobin Sodium Potassium Chloride Carbon Dioxide BUN Creatinine 1.8 H Glucose 73 L POC Glucose 127 H Calcium Phosphorus ALT Alkaline Phosphatase Total Creatine Kinase CK-MB (CK-2) Rel Index Troponin T Albumin LDL Cholesterol Direct PTH Intact Salicylates Acetaminophen Crossmatch 02/25/19 02/25/19 02/26/19 16:34 21:33 03:45 WBC RBC 2.96 L Hgb 8.0 L Hct 25.8 L MCH 27 L MCHC 31 L RDW 20.0 H Lymph % (Auto) [place] % (Auto) Eos % (Auto) Lymph # [place] # Eos # Seg Neutrophils % Seg Neuts % (Manual) Lymphocytes % (Manual) Eosinophils % (Manual) Seg Neutrophils # Lymphocytes # (Manual) Eosinophils # (Manual) PT INR D-Dimer POC ABG pH POC ABG pCO2 POC ABG pO2 ABG pO2 ABG HCO3 ABG Base Excess ABG Hemoglobin Oxyhemoglobin Sodium Potassium Chloride Carbon Dioxide BUN Creatinine Glucose POC Glucose 141 H 106 H Calcium Phosphorus ALT Alkaline Phosphatase Total Creatine Kinase CK-MB (CK-2) Rel Index Troponin T Albumin LDL Cholesterol Direct PTH Intact Salicylates Acetaminophen Crossmatch 02/26/19 02/26/19 02/26/19 03:45 04:13 07:53 WBC RBC Hgb Hct MCH MCHC RDW Lymph % (Auto) [place] % (Auto) Eos % (Auto) Lymph # [place] # Eos # Seg Neutrophils % Seg Neuts % (Manual) Lymphocytes % (Manual) Eosinophils % (Manual) Seg Neutrophils # Lymphocytes # (Manual) Eosinophils # (Manual) PT INR D-Dimer POC ABG pH 7.470 H POC ABG pCO2 POC ABG pO2 ABG pO2 ABG HCO3 ABG Base Excess ABG Hemoglobin Oxyhemoglobin Sodium Potassium Chloride Carbon Dioxide BUN Creatinine 1.8 H Glucose POC Glucose 110 H Calcium Phosphorus ALT Alkaline Phosphatase Total Creatine Kinase CK-MB (CK-2) Rel Index Troponin T Albumin LDL Cholesterol Direct PTH Intact Salicylates Acetaminophen Crossmatch 02/26/19 02/26/19 02/27/19 11:56 17:43 00:12 WBC RBC Hgb Hct MCH MCHC RDW Lymph % (Auto) [place] % (Auto) Eos % (Auto) Lymph # [place] # Eos # Seg Neutrophils % Seg Neuts % (Manual) Lymphocytes % (Manual) Eosinophils % (Manual) Seg Neutrophils # Lymphocytes # (Manual) Eosinophils # (Manual) PT INR D-Dimer POC ABG pH POC ABG pCO2 POC ABG pO2 ABG pO2 ABG HCO3 ABG Base Excess ABG Hemoglobin Oxyhemoglobin Sodium Potassium Chloride Carbon Dioxide BUN Creatinine Glucose POC Glucose 112 H 127 H 127 H Calcium Phosphorus ALT Alkaline Phosphatase Total Creatine Kinase CK-MB (CK-2) Rel Index Troponin T Albumin LDL Cholesterol Direct PTH Intact Salicylates Acetaminophen Crossmatch 02/27/19 02/27/19 02/27/19 04:35 13:15 18:02 WBC RBC Hgb Hct MCH MCHC RDW Lymph % (Auto) [place] % (Auto) Eos % (Auto) Lymph # [place] # Eos # Seg Neutrophils % Seg Neuts % (Manual) Lymphocytes % (Manual) Eosinophils % (Manual) Seg Neutrophils # Lymphocytes # (Manual) Eosinophils # (Manual) PT INR D-Dimer POC ABG pH 7.483 H POC ABG pCO2 POC ABG pO2 61 L ABG pO2 ABG HCO3 ABG Base Excess ABG Hemoglobin Oxyhemoglobin Sodium Potassium Chloride Carbon Dioxide BUN Creatinine Glucose POC Glucose 143 H 106 H Calcium Phosphorus ALT Alkaline Phosphatase Total Creatine Kinase CK-MB (CK-2) Rel Index Troponin T Albumin LDL Cholesterol Direct PTH Intact Salicylates Acetaminophen Crossmatch 02/28/19 02/28/19 02/28/19 05:50 11:59 17:52 WBC RBC Hgb Hct MCH MCHC RDW Lymph % (Auto) [place] % (Auto) Eos % (Auto) Lymph # [place] # Eos # Seg Neutrophils % Seg Neuts % (Manual) Lymphocytes % (Manual) Eosinophils % (Manual) Seg Neutrophils # Lymphocytes # (Manual) Eosinophils # (Manual) PT INR D-Dimer POC ABG pH POC ABG pCO2 POC ABG pO2 ABG pO2 ABG HCO3 ABG Base Excess ABG Hemoglobin Oxyhemoglobin Sodium Potassium Chloride Carbon Dioxide BUN Creatinine Glucose POC Glucose 134 H 128 H 142 H Calcium Phosphorus ALT Alkaline Phosphatase Total Creatine Kinase CK-MB (CK-2) Rel Index Troponin T Albumin LDL Cholesterol Direct PTH Intact Salicylates Acetaminophen Crossmatch 02/28/19 03/01/19 03/01/19 23:13 05:40 09:39 WBC RBC Hgb Hct MCH MCHC RDW Lymph % (Auto) [place] % (Auto) Eos % (Auto) Lymph # [place] # Eos # Seg Neutrophils % Seg Neuts % (Manual) Lymphocytes % (Manual) Eosinophils % (Manual) Seg Neutrophils # Lymphocytes # (Manual) Eosinophils # (Manual) PT 16.3 H INR 1.35 H D-Dimer POC ABG pH POC ABG pCO2 POC ABG pO2 ABG pO2 ABG HCO3 ABG Base Excess ABG Hemoglobin Oxyhemoglobin Sodium Potassium Chloride Carbon Dioxide BUN Creatinine Glucose POC Glucose 112 H 111 H Calcium Phosphorus ALT Alkaline Phosphatase Total Creatine Kinase CK-MB (CK-2) Rel Index Troponin T Albumin LDL Cholesterol Direct PTH Intact Salicylates Acetaminophen Crossmatch 03/01/19 03/01/19 03/01/19 11:56 13:54 17:59 WBC RBC Hgb Hct MCH MCHC RDW Lymph % (Auto) [place] % (Auto) Eos % (Auto) Lymph # [place] # Eos # Seg Neutrophils % Seg Neuts % (Manual) Lymphocytes % (Manual) Eosinophils % (Manual) Seg Neutrophils # Lymphocytes # (Manual) Eosinophils # (Manual) PT INR D-Dimer POC ABG pH POC ABG pCO2 POC ABG pO2 ABG pO2 ABG HCO3 ABG Base Excess ABG Hemoglobin Oxyhemoglobin Sodium Potassium Chloride Carbon Dioxide BUN 33 H Creatinine 2.8 H D Glucose 176 H POC Glucose 199 H 147 H Calcium Phosphorus ALT Alkaline Phosphatase Total Creatine Kinase CK-MB (CK-2) Rel Index Troponin T Albumin LDL Cholesterol Direct PTH Intact Salicylates Acetaminophen Crossmatch 03/02/19 03/02/19 03/02/19 05:15 05:15 05:15 WBC RBC 2.73 L Hgb 7.4 L Hct 23.0 L MCH 27 L MCHC RDW 19.9 H Lymph % (Auto) [place] % (Auto) 7.9 H Eos % (Auto) 7.6 H Lymph # 1.0 L [place] # Eos # 0.5 H Seg Neutrophils % Seg Neuts % (Manual) Lymphocytes % (Manual) Eosinophils % (Manual) Seg Neutrophils # Lymphocytes # (Manual) Eosinophils # (Manual) PT INR D-Dimer POC ABG pH POC ABG pCO2 POC ABG pO2 ABG pO2 ABG HCO3 ABG Base Excess ABG Hemoglobin Oxyhemoglobin Sodium Potassium Chloride Carbon Dioxide BUN 43 H Creatinine 3.2 H Glucose POC Glucose Calcium Phosphorus 2.30 L ALT Alkaline Phosphatase Total Creatine Kinase CK-MB (CK-2) Rel Index Troponin T Albumin LDL Cholesterol Direct PTH Intact 267.6 H Salicylates Acetaminophen Crossmatch 03/02/19 03/02/19 03/03/19 12:32 18:20 13:30 WBC RBC Hgb Hct MCH MCHC RDW Lymph % (Auto) [place] % (Auto) Eos % (Auto) Lymph # [place] # Eos # Seg Neutrophils % Seg Neuts % (Manual) Lymphocytes % (Manual) Eosinophils % (Manual) Seg Neutrophils # Lymphocytes # (Manual) Eosinophils # (Manual) PT INR D-Dimer POC ABG pH POC ABG pCO2 POC ABG pO2 ABG pO2 ABG HCO3 ABG Base Excess ABG Hemoglobin Oxyhemoglobin Sodium Potassium Chloride 97.3 L Carbon Dioxide BUN 26 H Creatinine 2.2 H Glucose 73 L POC Glucose 111 H 156 H Calcium Phosphorus ALT Alkaline Phosphatase Total Creatine Kinase CK-MB (CK-2) Rel Index Troponin T Albumin LDL Cholesterol Direct PTH Intact Salicylates Acetaminophen Crossmatch 03/04/19 03/04/19 03/04/19 00:02 05:37 05:40 WBC RBC 2.63 L Hgb 7.2 L Hct 22.2 L MCH MCHC RDW 20.2 H Lymph % (Auto) 10.5 L [place] % (Auto) Eos % (Auto) 4.6 H Lymph # 0.7 L [place] # Eos # Seg Neutrophils % 76.9 H Seg Neuts % (Manual) Lymphocytes % (Manual) Eosinophils % (Manual) Seg Neutrophils # Lymphocytes # (Manual) Eosinophils # (Manual) PT INR D-Dimer POC ABG pH POC ABG pCO2 POC ABG pO2 ABG pO2 ABG HCO3 ABG Base Excess ABG Hemoglobin Oxyhemoglobin Sodium Potassium Chloride Carbon Dioxide BUN Creatinine Glucose POC Glucose 136 H 123 H Calcium Phosphorus ALT Alkaline Phosphatase Total Creatine Kinase CK-MB (CK-2) Rel Index Troponin T Albumin LDL Cholesterol Direct PTH Intact Salicylates Acetaminophen Crossmatch 03/04/19 03/04/19 03/04/19 05:40 11:39 23:20 WBC RBC Hgb Hct MCH MCHC RDW Lymph % (Auto) [place] % (Auto) Eos % (Auto) Lymph # [place] # Eos # Seg Neutrophils % Seg Neuts % (Manual) Lymphocytes % (Manual) Eosinophils % (Manual) Seg Neutrophils # Lymphocytes # (Manual) Eosinophils # (Manual) PT INR D-Dimer POC ABG pH POC ABG pCO2 POC ABG pO2 ABG pO2 ABG HCO3 ABG Base Excess ABG Hemoglobin Oxyhemoglobin Sodium Potassium Chloride Carbon Dioxide BUN 34 H Creatinine 2.7 H Glucose 114 H POC Glucose 175 H 151 H Calcium Phosphorus ALT Alkaline Phosphatase Total Creatine Kinase CK-MB (CK-2) Rel Index Troponin T Albumin LDL Cholesterol Direct PTH Intact Salicylates Acetaminophen Crossmatch 03/05/19 03/05/19 03/05/19 05:37 12:08 17:11 WBC RBC Hgb Hct MCH MCHC RDW Lymph % (Auto) [place] % (Auto) Eos % (Auto) Lymph # [place] # Eos # Seg Neutrophils % Seg Neuts % (Manual) Lymphocytes % (Manual) Eosinophils % (Manual) Seg Neutrophils # Lymphocytes # (Manual) Eosinophils # (Manual) PT INR D-Dimer POC ABG pH POC ABG pCO2 POC ABG pO2 ABG pO2 ABG HCO3 ABG Base Excess ABG Hemoglobin Oxyhemoglobin Sodium Potassium Chloride Carbon Dioxide BUN Creatinine Glucose POC Glucose 134 H 135 H 135 H Calcium Phosphorus ALT Alkaline Phosphatase Total Creatine Kinase CK-MB (CK-2) Rel Index Troponin T Albumin LDL Cholesterol Direct PTH Intact Salicylates Acetaminophen Crossmatch 03/06/19 03/06/19 03/06/19 00:16 13:05 18:09 WBC RBC Hgb Hct MCH MCHC RDW Lymph % (Auto) [place] % (Auto) Eos % (Auto) Lymph # [place] # Eos # Seg Neutrophils % Seg Neuts % (Manual) Lymphocytes % (Manual) Eosinophils % (Manual) Seg Neutrophils # Lymphocytes # (Manual) Eosinophils # (Manual) PT INR D-Dimer POC ABG pH POC ABG pCO2 POC ABG pO2 ABG pO2 ABG HCO3 ABG Base Excess ABG Hemoglobin Oxyhemoglobin Sodium Potassium Chloride Carbon Dioxide BUN Creatinine Glucose POC Glucose 117 H 113 H 131 H Calcium Phosphorus ALT Alkaline Phosphatase Total Creatine Kinase CK-MB (CK-2) Rel Index Troponin T Albumin LDL Cholesterol Direct PTH Intact Salicylates Acetaminophen Crossmatch 03/07/19 03/08/19 03/08/19 05:25 05:33 16:00 WBC RBC 2.44 L Hgb 6.6 L Hct 20.8 L MCH 27 L MCHC RDW 19.2 H Lymph % (Auto) [place] % (Auto) Eos % (Auto) 8.6 H Lymph # 0.8 L [place] # Eos # 0.5 H Seg Neutrophils % 70.7 H Seg Neuts % (Manual) Lymphocytes % (Manual) Eosinophils % (Manual) Seg Neutrophils # Lymphocytes # (Manual) Eosinophils # (Manual) PT INR D-Dimer POC ABG pH POC ABG pCO2 POC ABG pO2 ABG pO2 ABG HCO3 ABG Base Excess ABG Hemoglobin Oxyhemoglobin Sodium Potassium Chloride Carbon Dioxide BUN Creatinine Glucose POC Glucose 106 H 108 H Calcium Phosphorus ALT Alkaline Phosphatase Total Creatine Kinase CK-MB (CK-2) Rel Index Troponin T Albumin LDL Cholesterol Direct PTH Intact Salicylates Acetaminophen Crossmatch 03/08/19 03/08/19 03/08/19 16:00 18:38 Unknown WBC RBC Hgb Hct MCH MCHC RDW Lymph % (Auto) [place] % (Auto) Eos % (Auto) Lymph # [place] # Eos # Seg Neutrophils % Seg Neuts % (Manual) Lymphocytes % (Manual) Eosinophils % (Manual) Seg Neutrophils # Lymphocytes # (Manual) Eosinophils # (Manual) PT INR D-Dimer POC ABG pH POC ABG pCO2 POC ABG pO2 ABG pO2 ABG HCO3 ABG Base Excess ABG Hemoglobin Oxyhemoglobin Sodium Potassium 5.4 H D Chloride Carbon Dioxide BUN 47 H Creatinine 2.6 H Glucose POC Glucose 123 H Calcium Phosphorus ALT < 5 L Alkaline Phosphatase Total Creatine Kinase CK-MB (CK-2) Rel Index Troponin T Albumin 2.2 L LDL Cholesterol Direct PTH Intact Salicylates Acetaminophen Crossmatch See Detail 03/09/19 03/09/19 03/09/19 10:48 12:28 13:53 WBC RBC 2.85 L Hgb 7.7 L Hct 24.2 L MCH 27 L MCHC RDW 18.7 H Lymph % (Auto) [place] % (Auto) Eos % (Auto) Lymph # [place] # Eos # Seg Neutrophils % Seg Neuts % (Manual) Lymphocytes % (Manual) Eosinophils % (Manual) Seg Neutrophils # Lymphocytes # (Manual) Eosinophils # (Manual) PT INR D-Dimer POC ABG pH POC ABG pCO2 POC ABG pO2 ABG pO2 ABG HCO3 30.5 H ABG Base Excess 5.6 H ABG Hemoglobin 8.1 L Oxyhemoglobin 93.8 L Sodium Potassium Chloride Carbon Dioxide BUN Creatinine Glucose POC Glucose 114 H Calcium Phosphorus ALT Alkaline Phosphatase Total Creatine Kinase CK-MB (CK-2) Rel Index Troponin T Albumin LDL Cholesterol Direct PTH Intact Salicylates Acetaminophen Crossmatch 03/09/19 03/09/19 03/10/19 17:58 23:53 12:01 WBC RBC Hgb Hct MCH MCHC RDW Lymph % (Auto) [place] % (Auto) Eos % (Auto) Lymph # [place] # Eos # Seg Neutrophils % Seg Neuts % (Manual) Lymphocytes % (Manual) Eosinophils % (Manual) Seg Neutrophils # Lymphocytes # (Manual) Eosinophils # (Manual) PT INR D-Dimer POC ABG pH POC ABG pCO2 POC ABG pO2 ABG pO2 ABG HCO3 ABG Base Excess ABG Hemoglobin Oxyhemoglobin Sodium Potassium Chloride Carbon Dioxide BUN Creatinine Glucose POC Glucose 108 H 128 H 144 H Calcium Phosphorus ALT Alkaline Phosphatase Total Creatine Kinase CK-MB (CK-2) Rel Index Troponin T Albumin LDL Cholesterol Direct PTH Intact Salicylates Acetaminophen Crossmatch 03/10/19 03/11/19 03/11/19 16:50 00:24 05:02 WBC RBC Hgb Hct MCH MCHC RDW Lymph % (Auto) [place] % (Auto) Eos % (Auto) Lymph # [place] # Eos # Seg Neutrophils % Seg Neuts % (Manual) Lymphocytes % (Manual) Eosinophils % (Manual) Seg Neutrophils # Lymphocytes # (Manual) Eosinophils # (Manual) PT INR D-Dimer POC ABG pH POC ABG pCO2 POC ABG pO2 ABG pO2 ABG HCO3 ABG Base Excess ABG Hemoglobin Oxyhemoglobin Sodium Potassium Chloride Carbon Dioxide BUN Creatinine Glucose POC Glucose 147 H 123 H 120 H Calcium Phosphorus ALT Alkaline Phosphatase Total Creatine Kinase CK-MB (CK-2) Rel Index Troponin T Albumin LDL Cholesterol Direct PTH Intact Salicylates Acetaminophen Crossmatch 03/11/19 03/11/19 03/11/19 11:56 12:20 18:37 WBC RBC Hgb Hct MCH MCHC RDW Lymph % (Auto) [place] % (Auto) Eos % (Auto) Lymph # [place] # Eos # Seg Neutrophils % Seg Neuts % (Manual) Lymphocytes % (Manual) Eosinophils % (Manual) Seg Neutrophils # Lymphocytes # (Manual) Eosinophils # (Manual) PT INR D-Dimer POC ABG pH POC ABG pCO2 POC ABG pO2 ABG pO2 ABG HCO3 ABG Base Excess ABG Hemoglobin Oxyhemoglobin Sodium Potassium 5.2 H Chloride Carbon Dioxide BUN Creatinine Glucose POC Glucose 123 H 125 H Calcium Phosphorus ALT Alkaline Phosphatase Total Creatine Kinase CK-MB (CK-2) Rel Index Troponin T Albumin LDL Cholesterol Direct PTH Intact Salicylates Acetaminophen Crossmatch 03/11/19 03/12/19 03/12/19 22:52 12:04 18:25 WBC RBC Hgb Hct MCH MCHC RDW Lymph % (Auto) [place] % (Auto) Eos % (Auto) Lymph # [place] # Eos # Seg Neutrophils % Seg Neuts % (Manual) Lymphocytes % (Manual) Eosinophils % (Manual) Seg Neutrophils # Lymphocytes # (Manual) Eosinophils # (Manual) PT INR D-Dimer POC ABG pH POC ABG pCO2 POC ABG pO2 ABG pO2 ABG HCO3 ABG Base Excess ABG Hemoglobin Oxyhemoglobin Sodium Potassium Chloride Carbon Dioxide BUN Creatinine Glucose POC Glucose 110 H 106 H 118 H Calcium Phosphorus ALT Alkaline Phosphatase Total Creatine Kinase CK-MB (CK-2) Rel Index Troponin T Albumin LDL Cholesterol Direct PTH Intact Salicylates Acetaminophen Crossmatch 03/12/19 03/13/19 03/13/19 23:36 04:38 04:38 WBC RBC 2.95 L Hgb 7.9 L Hct 24.9 L MCH 27 L MCHC RDW 19.9 H Lymph % (Auto) 11.1 L [place] % (Auto) 8.1 H Eos % (Auto) 4.4 H Lymph # 0.9 L [place] # Eos # Seg Neutrophils % 75.4 H Seg Neuts % (Manual) Lymphocytes % (Manual) Eosinophils % (Manual) Seg Neutrophils # Lymphocytes # (Manual) Eosinophils # (Manual) PT INR D-Dimer POC ABG pH POC ABG pCO2 POC ABG pO2 ABG pO2 ABG HCO3 ABG Base Excess ABG Hemoglobin Oxyhemoglobin Sodium 136 L Potassium 5.1 H Chloride 93.8 L Carbon Dioxide BUN 48 H Creatinine 2.7 H Glucose 102 H POC Glucose 115 H Calcium Phosphorus ALT < 5 L Alkaline Phosphatase 143 H Total Creatine Kinase CK-MB (CK-2) Rel Index Troponin T Albumin 2.5 L LDL Cholesterol Direct PTH Intact Salicylates Acetaminophen Crossmatch 03/13/19 03/13/19 03/13/19 05:33 13:37 18:03 WBC RBC Hgb Hct MCH MCHC RDW Lymph % (Auto) [place] % (Auto) Eos % (Auto) Lymph # [place] # Eos # Seg Neutrophils % Seg Neuts % (Manual) Lymphocytes % (Manual) Eosinophils % (Manual) Seg Neutrophils # Lymphocytes # (Manual) Eosinophils # (Manual) PT INR D-Dimer POC ABG pH POC ABG pCO2 POC ABG pO2 ABG pO2 ABG HCO3 ABG Base Excess ABG Hemoglobin Oxyhemoglobin Sodium Potassium Chloride Carbon Dioxide BUN Creatinine Glucose POC Glucose 140 H 150 H 158 H Calcium Phosphorus ALT Alkaline Phosphatase Total Creatine Kinase CK-MB (CK-2) Rel Index Troponin T Albumin LDL Cholesterol Direct PTH Intact Salicylates Acetaminophen Crossmatch 03/13/19 03/14/1903/14/19 23:32 05:24 12:20 WBC RBC Hgb Hct MCH MCHC RDW Lymph % (Auto) [place] % (Auto) Eos % (Auto) Lymph # [place] # Eos # Seg Neutrophils % Seg Neuts % (Manual) Lymphocytes % (Manual) Eosinophils % (Manual) Seg Neutrophils # Lymphocytes # (Manual) Eosinophils # (Manual) PT INR D-Dimer POC ABG pH POC ABG pCO2 POC ABG pO2 ABG pO2 ABG HCO3 ABG Base Excess ABG Hemoglobin Oxyhemoglobin Sodium Potassium Chloride Carbon Dioxide BUN Creatinine Glucose POC Glucose 162 H 146 H 127 H Calcium Phosphorus ALT Alkaline Phosphatase Total Creatine Kinase CK-MB (CK-2) Rel Index Troponin T Albumin LDL Cholesterol Direct PTH Intact Salicylates Acetaminophen Crossmatch 03/14/19 03/14/19 03/15/19 18:05 23:57 04:38 WBC 12.8 H RBC 3.11 L Hgb 8.1 L Hct 26.5 L MCH 26 L MCHC 31 L RDW 19.7 H Lymph % (Auto) 4.4 L [place] % (Auto) 7.4 H Eos % (Auto) Lymph # 0.6 L [place] # 0.9 H Eos # Seg Neutrophils % 87.3 H Seg Neuts % (Manual) Lymphocytes % (Manual) Eosinophils % (Manual) Seg Neutrophils # 11.2 H Lymphocytes # (Manual) Eosinophils # (Manual) PT INR D-Dimer POC ABG pH POC ABG pCO2 POC ABG pO2 ABG pO2 ABG HCO3 ABG Base Excess ABG Hemoglobin Oxyhemoglobin Sodium Potassium Chloride Carbon Dioxide BUN Creatinine Glucose POC Glucose 142 H 155 H Calcium Phosphorus ALT Alkaline Phosphatase Total Creatine Kinase CK-MB (CK-2) Rel Index Troponin T Albumin LDL Cholesterol Direct PTH Intact Salicylates Acetaminophen Crossmatch 03/15/19 03/15/19 03/15/19 04:38 05:31 11:32 WBC RBC Hgb Hct MCH MCHC RDW Lymph % (Auto) [place] % (Auto) Eos % (Auto) Lymph # [place] # Eos # Seg Neutrophils % Seg Neuts % (Manual) Lymphocytes % (Manual) Eosinophils % (Manual) Seg Neutrophils # Lymphocytes # (Manual) Eosinophils # (Manual) PT INR D-Dimer POC ABG pH POC ABG pCO2 POC ABG pO2 ABG pO2 ABG HCO3 ABG Base Excess ABG Hemoglobin Oxyhemoglobin Sodium 135 L Potassium Chloride 91.9 L Carbon Dioxide BUN 54 H Creatinine 2.8 H Glucose 128 H POC Glucose 160 H 109 H Calcium 11.1 H Phosphorus ALT Alkaline Phosphatase 161 H Total Creatine Kinase CK-MB (CK-2) Rel Index Troponin T Albumin 2.3 L LDL Cholesterol Direct PTH Intact Salicylates Acetaminophen Crossmatch 03/15/19 03/15/19 03/16/19 18:15 23:41 05:40 WBC RBC Hgb Hct MCH MCHC RDW Lymph % (Auto) [place] % (Auto) Eos % (Auto) Lymph # [place] # Eos # Seg Neutrophils % Seg Neuts % (Manual) Lymphocytes % (Manual) Eosinophils % (Manual) Seg Neutrophils # Lymphocytes # (Manual) Eosinophils # (Manual) PT INR D-Dimer POC ABG pH POC ABG pCO2 POC ABG pO2 ABG pO2 ABG HCO3 ABG Base Excess ABG Hemoglobin Oxyhemoglobin Sodium Potassium Chloride Carbon Dioxide BUN Creatinine Glucose POC Glucose 151 H 110 H 163 H Calcium Phosphorus ALT Alkaline Phosphatase Total Creatine Kinase CK-MB (CK-2) Rel Index Troponin T Albumin LDL Cholesterol Direct PTH Intact Salicylates Acetaminophen Crossmatch 03/16/19 03/16/19 03/16/19 11:55 17:04 23:58 WBC RBC Hgb Hct MCH MCHC RDW Lymph % (Auto) [place] % (Auto) Eos % (Auto) Lymph # [place] # Eos # Seg Neutrophils % Seg Neuts % (Manual) Lymphocytes % (Manual) Eosinophils % (Manual) Seg Neutrophils # Lymphocytes # (Manual) Eosinophils # (Manual) PT INR D-Dimer POC ABG pH POC ABG pCO2 POC ABG pO2 ABG pO2 ABG HCO3 ABG Base Excess ABG Hemoglobin Oxyhemoglobin Sodium Potassium Chloride Carbon Dioxide BUN Creatinine Glucose POC Glucose 114 H 147 H 192 H Calcium Phosphorus ALT Alkaline Phosphatase Total Creatine Kinase CK-MB (CK-2) Rel Index Troponin T Albumin LDL Cholesterol Direct PTH Intact Salicylates Acetaminophen Crossmatch 03/17/19 03/17/19 03/17/19 05:53 11:17 17:01 WBC RBC Hgb Hct MCH MCHC RDW Lymph % (Auto) [place] % (Auto) Eos % (Auto) Lymph # [place] # Eos # Seg Neutrophils % Seg Neuts % (Manual) Lymphocytes % (Manual) Eosinophils % (Manual) Seg Neutrophils # Lymphocytes # (Manual) Eosinophils # (Manual) PT INR D-Dimer POC ABG pH POC ABG pCO2 POC ABG pO2 ABG pO2 ABG HCO3 ABG Base Excess ABG Hemoglobin Oxyhemoglobin Sodium Potassium Chloride Carbon Dioxide BUN Creatinine Glucose POC Glucose 151 H 161 H 152 H Calcium Phosphorus ALT Alkaline Phosphatase Total Creatine Kinase CK-MB (CK-2) Rel Index Troponin T Albumin LDL Cholesterol Direct PTH Intact Salicylates Acetaminophen Crossmatch 03/17/19 03/18/19 03/18/19 21:47 04:15 04:44 WBC RBC Hgb Hct MCH MCHC RDW Lymph % (Auto) [place] % (Auto) Eos % (Auto) Lymph # [place] # Eos # Seg Neutrophils % Seg Neuts % (Manual) Lymphocytes % (Manual) Eosinophils % (Manual) Seg Neutrophils # Lymphocytes # (Manual) Eosinophils # (Manual) PT INR D-Dimer POC ABG pH POC ABG pCO2 POC ABG pO2 ABG pO2 102.8 H ABG HCO3 28.3 H ABG Base Excess ABG Hemoglobin 10.4 L Oxyhemoglobin 94.5 L Sodium Potassium Chloride Carbon Dioxide BUN Creatinine Glucose POC Glucose 170 H 150 H Calcium Phosphorus ALT Alkaline Phosphatase Total Creatine Kinase CK-MB (CK-2) Rel Index Troponin T Albumin LDL Cholesterol Direct PTH Intact Salicylates Acetaminophen Crossmatch 03/18/19 03/18/19 03/18/19 06:38 12:12 17:47 WBC RBC Hgb Hct MCH MCHC RDW Lymph % (Auto) [place] % (Auto) Eos % (Auto) Lymph # [place] # Eos # Seg Neutrophils % Seg Neuts % (Manual) Lymphocytes % (Manual) Eosinophils % (Manual) Seg Neutrophils # Lymphocytes # (Manual) Eosinophils # (Manual) PT INR D-Dimer POC ABG pH 7.510 H POC ABG pCO2 POC ABG pO2 164 H ABG pO2 ABG HCO3 ABG Base Excess ABG Hemoglobin Oxyhemoglobin Sodium Potassium Chloride Carbon Dioxide BUN Creatinine Glucose POC Glucose 145 H 149 H Calcium Phosphorus ALT Alkaline Phosphatase Total Creatine Kinase CK-MB (CK-2) Rel Index Troponin T Albumin LDL Cholesterol Direct PTH Intact Salicylates Acetaminophen Crossmatch 03/18/19 03/19/19 03/19/19 23:25 01:11 04:23 WBC 15.6 H RBC 2.51 L Hgb 6.5 L Hct 21.6 L MCH 26 L MCHC 30 L RDW 19.8 H Lymph % (Auto) 6.0 L [place] % (Auto) Eos % (Auto) Lymph # 0.9 L [place] # 1.0 H Eos # Seg Neutrophils % 85.5 H Seg Neuts % (Manual) Lymphocytes % (Manual) Eosinophils % (Manual) Seg Neutrophils # 13.4 H Lymphocytes # (Manual) Eosinophils # (Manual) PT INR D-Dimer POC ABG pH POC ABG pCO2 POC ABG pO2 ABG pO2 78.3 L ABG HCO3 30.7 H ABG Base Excess 5.8 H ABG Hemoglobin 5.8 L Oxyhemoglobin 94.6 L Sodium Potassium Chloride Carbon Dioxide BUN Creatinine Glucose POC Glucose 190 H Calcium Phosphorus ALT Alkaline Phosphatase Total Creatine Kinase CK-MB (CK-2) Rel Index Troponin T Albumin LDL Cholesterol Direct PTH Intact Salicylates Acetaminophen Crossmatch 03/19/19 03/19/19 03/19/19 05:22 05:35 08:54 WBC RBC Hgb Hct MCH MCHC RDW Lymph % (Auto) [place] % (Auto) Eos % (Auto) Lymph # [place] # Eos # Seg Neutrophils % Seg Neuts % (Manual) Lymphocytes % (Manual) Eosinophils % (Manual) Seg Neutrophils # Lymphocytes # (Manual) Eosinophils # (Manual) PT INR D-Dimer POC ABG pH POC ABG pCO2 POC ABG pO2 ABG pO2 ABG HCO3 ABG Base Excess ABG Hemoglobin Oxyhemoglobin Sodium Potassium Chloride Carbon Dioxide BUN Creatinine Glucose POC Glucose 167 H Calcium Phosphorus ALT Alkaline Phosphatase Total Creatine Kinase CK-MB (CK-2) Rel Index Troponin T Albumin LDL Cholesterol Direct PTH Intact Salicylates Acetaminophen Crossmatch See Detail See Detail 03/19/19 03/19/19 03/19/19 12:36 17:02 23:25 WBC RBC Hgb Hct MCH MCHC RDW Lymph % (Auto) [place] % (Auto) Eos % (Auto) Lymph # [place] # Eos # Seg Neutrophils % Seg Neuts % (Manual) Lymphocytes % (Manual) Eosinophils % (Manual) Seg Neutrophils # Lymphocytes # (Manual) Eosinophils # (Manual) PT INR D-Dimer POC ABG pH POC ABG pCO2 POC ABG pO2 ABG pO2 ABG HCO3 ABG Base Excess ABG Hemoglobin Oxyhemoglobin Sodium Potassium Chloride Carbon Dioxide BUN Creatinine Glucose POC Glucose 167 H 135 H 136 H Calcium Phosphorus ALT Alkaline Phosphatase Total Creatine Kinase CK-MB (CK-2) Rel Index Troponin T Albumin LDL Cholesterol Direct PTH Intact Salicylates Acetaminophen Crossmatch 03/20/19 03/20/19 03/20/19 05:38 08:40 08:40 WBC RBC 2.61 L Hgb 7.1 L Hct 22.0 L MCH 27 L MCHC RDW 19.6 H Lymph % (Auto) 8.2 L [place] % (Auto) 8.3 H Eos % (Auto) 5.7 H Lymph # 0.8 L [place] # Eos # 0.5 H Seg Neutrophils % 77.3 H Seg Neuts % (Manual) Lymphocytes % (Manual) Eosinophils % (Manual) Seg Neutrophils # Lymphocytes # (Manual) Eosinophils # (Manual) PT INR D-Dimer POC ABG pH POC ABG pCO2 POC ABG pO2 ABG pO2 ABG HCO3 ABG Base Excess ABG Hemoglobin Oxyhemoglobin Sodium Potassium Chloride 95.9 L Carbon Dioxide BUN 69 H Creatinine 2.8 H Glucose 115 H POC Glucose 134 H Calcium 10.5 H Phosphorus ALT Alkaline Phosphatase Total Creatine Kinase CK-MB (CK-2) Rel Index Troponin T Albumin LDL Cholesterol Direct PTH Intact Salicylates Acetaminophen Crossmatch 03/20/19 03/20/19 03/20/19 12:13 18:04 23:49 WBC RBC Hgb Hct MCH MCHC RDW Lymph % (Auto) [place] % (Auto) Eos % (Auto) Lymph # [place] # Eos # Seg Neutrophils % Seg Neuts % (Manual) Lymphocytes % (Manual) Eosinophils % (Manual) Seg Neutrophils # Lymphocytes # (Manual) Eosinophils # (Manual) PT INR D-Dimer POC ABG pH POC ABG pCO2 POC ABG pO2 ABG pO2 ABG HCO3 ABG Base Excess ABG Hemoglobin Oxyhemoglobin Sodium Potassium Chloride Carbon Dioxide BUN Creatinine Glucose POC Glucose 144 H 165 H 172 H Calcium Phosphorus ALT Alkaline Phosphatase Total Creatine Kinase CK-MB (CK-2) Rel Index Troponin T Albumin LDL Cholesterol Direct PTH Intact Salicylates Acetaminophen Crossmatch 03/21/19 03/21/19 03/21/19 05:00 06:29 06:30 WBC RBC 2.72 L Hgb 7.4 L Hct 22.9 L MCH 27 L MCHC RDW 19.4 H Lymph % (Auto) [place] % (Auto) Eos % (Auto) Lymph # [place] # Eos # Seg Neutrophils % Seg Neuts % (Manual) 81.0 H Lymphocytes % (Manual) 8.0 L Eosinophils % (Manual) 8.0 H Seg Neutrophils # Lymphocytes # (Manual) 0.7 L Eosinophils # (Manual) 0.7 H PT INR D-Dimer POC ABG pH POC ABG pCO2 POC ABG pO2 ABG pO2 ABG HCO3 ABG Base Excess ABG Hemoglobin Oxyhemoglobin Sodium Potassium Chloride Carbon Dioxide 33 H BUN 43 H Creatinine 1.7 H Glucose 145 H POC Glucose 156 H Calcium Phosphorus ALT Alkaline Phosphatase 212 H Total Creatine Kinase CK-MB (CK-2) Rel Index Troponin T Albumin 2.2 L LDL Cholesterol Direct PTH Intact Salicylates Acetaminophen Crossmatch 03/21/19 03/21/19 03/22/19 12:02 18:07 00:21 WBC RBC Hgb Hct MCH MCHC RDW Lymph % (Auto) [place] % (Auto) Eos % (Auto) Lymph # [place] # Eos # Seg Neutrophils % Seg Neuts % (Manual) Lymphocytes % (Manual) Eosinophils % (Manual) Seg Neutrophils # Lymphocytes # (Manual) Eosinophils # (Manual) PT INR D-Dimer POC ABG pH POC ABG pCO2 POC ABG pO2 ABG pO2 ABG HCO3 ABG Base Excess ABG Hemoglobin Oxyhemoglobin Sodium Potassium Chloride Carbon Dioxide BUN Creatinine Glucose POC Glucose 163 H 144 H 153 H Calcium Phosphorus ALT Alkaline Phosphatase Total Creatine Kinase CK-MB (CK-2) Rel Index Troponin T Albumin LDL Cholesterol Direct PTH Intact Salicylates Acetaminophen Crossmatch 03/22/19 03/22/19 03/22/19 05:23 05:23 05:31 WBC RBC 2.58 L Hgb 7.1 L Hct 21.8 L MCH 27 L MCHC RDW 19.2 H Lymph % (Auto) [place] % (Auto) Eos % (Auto) Lymph # [place] # Eos # Seg Neutrophils % Seg Neuts % (Manual) Lymphocytes % (Manual) Eosinophils % (Manual) Seg Neutrophils # Lymphocytes # (Manual) Eosinophils # (Manual) PT INR D-Dimer POC ABG pH POC ABG pCO2 POC ABG pO2 ABG pO2 ABG HCO3 ABG Base Excess ABG Hemoglobin Oxyhemoglobin Sodium 147 H Potassium Chloride Carbon Dioxide BUN 68 H Creatinine 2.5 H Glucose POC Glucose 116 H Calcium 10.3 H Phosphorus ALT Alkaline Phosphatase Total Creatine Kinase CK-MB (CK-2) Rel Index Troponin T Albumin LDL Cholesterol Direct PTH Intact Salicylates Acetaminophen Crossmatch 03/22/19 03/22/19 03/22/19 08:48 12:37 17:35 WBC RBC Hgb Hct MCH MCHC RDW Lymph % (Auto) [place] % (Auto) Eos % (Auto) Lymph # [place] # Eos # Seg Neutrophils % Seg Neuts % (Manual) Lymphocytes % (Manual) Eosinophils % (Manual) Seg Neutrophils # Lymphocytes # (Manual) Eosinophils # (Manual) PT INR D-Dimer POC ABG pH POC ABG pCO2 POC ABG pO2 ABG pO2 ABG HCO3 ABG Base Excess ABG Hemoglobin Oxyhemoglobin Sodium Potassium Chloride Carbon Dioxide BUN Creatinine Glucose POC Glucose 143 H 155 H Calcium Phosphorus ALT Alkaline Phosphatase Total Creatine Kinase CK-MB (CK-2) Rel Index Troponin T Albumin LDL Cholesterol Direct PTH Intact Salicylates Acetaminophen Crossmatch See Detail 03/23/19 03/23/19 03/23/19 00:07 04:00 04:00 WBC 11.2 H RBC 2.32 L Hgb 6.4 L Hct 19.7 L* MCH MCHC RDW 19.4 H Lymph % (Auto) [place] % (Auto) Eos % (Auto) Lymph # [place] # Eos # Seg Neutrophils % Seg Neuts % (Manual) Lymphocytes % (Manual) Eosinophils % (Manual) Seg Neutrophils # Lymphocytes # (Manual) Eosinophils # (Manual) PT INR D-Dimer POC ABG pH POC ABG pCO2 POC ABG pO2 ABG pO2 ABG HCO3 ABG Base Excess ABG Hemoglobin Oxyhemoglobin Sodium 147 H Potassium 5.2 H Chloride Carbon Dioxide BUN 86 H Creatinine 3.2 H Glucose 128 H POC Glucose 135 H Calcium 10.3 H Phosphorus ALT Alkaline Phosphatase Total Creatine Kinase CK-MB (CK-2) Rel Index Troponin T Albumin LDL Cholesterol Direct PTH Intact Salicylates Acetaminophen Crossmatch 03/23/19 03/23/19 03/23/19 05:21 11:36 11:36 WBC RBC Hgb 7.9 L Hct 25.0 L MCH MCHC RDW Lymph % (Auto) [place] % (Auto) Eos % (Auto) Lymph # [place] # Eos # Seg Neutrophils % Seg Neuts % (Manual) Lymphocytes % (Manual) Eosinophils % (Manual) Seg Neutrophils # Lymphocytes # (Manual) Eosinophils # (Manual) PT INR D-Dimer POC ABG pH POC ABG pCO2 POC ABG pO2 ABG pO2 ABG HCO3 ABG Base Excess ABG Hemoglobin Oxyhemoglobin Sodium Potassium Chloride Carbon Dioxide BUN Creatinine Glucose POC Glucose 132 H 147 H Calcium Phosphorus ALT Alkaline Phosphatase Total Creatine Kinase CK-MB (CK-2) Rel Index Troponin T Albumin LDL Cholesterol Direct PTH Intact Salicylates Acetaminophen Crossmatch 03/23/19 03/24/19 03/24/19 17:31 01:22 04:20 WBC 12.2 H RBC 3.05 L Hgb 8.3 L Hct 25.9 L MCH 27 L MCHC RDW 18.7 H Lymph % (Auto) [place] % (Auto) Eos % (Auto) Lymph # [place] # Eos # Seg Neutrophils % Seg Neuts % (Manual) Lymphocytes % (Manual) Eosinophils % (Manual) Seg Neutrophils # Lymphocytes # (Manual) Eosinophils # (Manual) PT INR D-Dimer POC ABG pH POC ABG pCO2 POC ABG pO2 ABG pO2 ABG HCO3 ABG Base Excess ABG Hemoglobin Oxyhemoglobin Sodium Potassium Chloride Carbon Dioxide BUN Creatinine Glucose POC Glucose 182 H 113 H Calcium Phosphorus ALT Alkaline Phosphatase Total Creatine Kinase CK-MB (CK-2) Rel Index Troponin T Albumin LDL Cholesterol Direct PTH Intact Salicylates Acetaminophen Crossmatch 03/24/19 03/24/19 03/24/19 04:20 11:59 18:14 WBC RBC Hgb Hct MCH MCHC RDW Lymph % (Auto) [place] % (Auto) Eos % (Auto) Lymph # [place] # Eos # Seg Neutrophils % Seg Neuts % (Manual) Lymphocytes % (Manual) Eosinophils % (Manual) Seg Neutrophils # Lymphocytes # (Manual) Eosinophils # (Manual) PT INR D-Dimer POC ABG pH POC ABG pCO2 POC ABG pO2 ABG pO2 ABG HCO3 ABG Base Excess ABG Hemoglobin Oxyhemoglobin Sodium Potassium Chloride 94.8 L Carbon Dioxide 32 H BUN 53 H Creatinine 2.3 H Glucose POC Glucose 163 H 134 H Calcium Phosphorus ALT Alkaline Phosphatase Total Creatine Kinase CK-MB (CK-2) Rel Index Troponin T Albumin LDL Cholesterol Direct PTH Intact Salicylates Acetaminophen Crossmatch 03/24/19 03/25/19 03/25/19 23:15 05:52 12:02 WBC RBC Hgb Hct MCH MCHC RDW Lymph % (Auto) [place] % (Auto) Eos % (Auto) Lymph # [place] # Eos # Seg Neutrophils % Seg Neuts % (Manual) Lymphocytes % (Manual) Eosinophils % (Manual) Seg Neutrophils # Lymphocytes # (Manual) Eosinophils # (Manual) PT INR D-Dimer POC ABG pH POC ABG pCO2 POC ABG pO2 ABG pO2 ABG HCO3 ABG Base Excess ABG Hemoglobin Oxyhemoglobin Sodium Potassium Chloride Carbon Dioxide BUN Creatinine Glucose POC Glucose 129 H 123 H 125 H Calcium Phosphorus ALT Alkaline Phosphatase Total Creatine Kinase CK-MB (CK-2) Rel Index Troponin T Albumin LDL Cholesterol Direct PTH Intact Salicylates Acetaminophen Crossmatch 03/25/19 03/26/19 03/26/19 17:27 00:30 05:35 WBC RBC 3.01 L Hgb 8.1 L Hct 25.7 L MCH 27 L MCHC RDW 19.2 H Lymph % (Auto) 11.4 L [place] % (Auto) Eos % (Auto) 8.0 H Lymph # 1.0 L [place] # Eos # 0.7 H Seg Neutrophils % 73.9 H Seg Neuts % (Manual) Lymphocytes % (Manual) Eosinophils % (Manual) Seg Neutrophils # Lymphocytes # (Manual) Eosinophils # (Manual) PT INR D-Dimer POC ABG pH POC ABG pCO2 POC ABG pO2 ABG pO2 ABG HCO3 ABG Base Excess ABG Hemoglobin Oxyhemoglobin Sodium Potassium Chloride Carbon Dioxide BUN Creatinine Glucose POC Glucose 130 H 129 H Calcium Phosphorus ALT Alkaline Phosphatase Total Creatine Kinase CK-MB (CK-2) Rel Index Troponin T Albumin LDL Cholesterol Direct PTH Intact Salicylates Acetaminophen Crossmatch 03/26/19 03/26/19 03/26/19 05:35 05:45 12:16 WBC RBC Hgb Hct MCH MCHC RDW Lymph % (Auto) [place] % (Auto) Eos % (Auto) Lymph # [place] # Eos # Seg Neutrophils % Seg Neuts % (Manual) Lymphocytes % (Manual) Eosinophils % (Manual) Seg Neutrophils # Lymphocytes # (Manual) Eosinophils # (Manual) PT INR D-Dimer POC ABG pH POC ABG pCO2 POC ABG pO2 ABG pO2 ABG HCO3 ABG Base Excess ABG Hemoglobin Oxyhemoglobin Sodium Potassium Chloride 94.9 L Carbon Dioxide 31 H BUN 44 H Creatinine 2.0 H Glucose POC Glucose 118 H 107 H Calcium Phosphorus ALT Alkaline Phosphatase Total Creatine Kinase CK-MB (CK-2) Rel Index Troponin T Albumin LDL Cholesterol Direct PTH Intact Salicylates Acetaminophen Crossmatch 03/26/19 03/27/19 03/27/19 17:56 00:36 05:37 WBC RBC Hgb Hct MCH MCHC RDW Lymph % (Auto) [place] % (Auto) Eos % (Auto) Lymph # [place] # Eos # Seg Neutrophils % Seg Neuts % (Manual) Lymphocytes % (Manual) Eosinophils % (Manual) Seg Neutrophils # Lymphocytes # (Manual) Eosinophils # (Manual) PT INR D-Dimer POC ABG pH POC ABG pCO2 POC ABG pO2 ABG pO2 ABG HCO3 ABG Base Excess ABG Hemoglobin Oxyhemoglobin Sodium Potassium Chloride Carbon Dioxide BUN Creatinine Glucose POC Glucose 107 H 110 H 122 H Calcium Phosphorus ALT Alkaline Phosphatase Total Creatine Kinase CK-MB (CK-2) Rel Index Troponin T Albumin LDL Cholesterol Direct PTH Intact Salicylates Acetaminophen Crossmatch 03/27/19 03/27/19 03/28/19 11:22 18:00 05:17 WBC RBC Hgb Hct MCH MCHC RDW Lymph % (Auto) [place] % (Auto) Eos % (Auto) Lymph # [place] # Eos # Seg Neutrophils % Seg Neuts % (Manual) Lymphocytes % (Manual) Eosinophils % (Manual) Seg Neutrophils # Lymphocytes # (Manual) Eosinophils # (Manual) PT INR D-Dimer POC ABG pH POC ABG pCO2 POC ABG pO2 ABG pO2 ABG HCO3 ABG Base Excess ABG Hemoglobin Oxyhemoglobin Sodium Potassium Chloride Carbon Dioxide BUN Creatinine Glucose POC Glucose 120 H 111 H 107 H Calcium Phosphorus ALT Alkaline Phosphatase Total Creatine Kinase CK-MB (CK-2) Rel Index Troponin T Albumin LDL Cholesterol Direct PTH Intact Salicylates Acetaminophen Crossmatch 03/28/19 03/28/19 03/29/19 12:27 18:08 05:47 WBC RBC Hgb Hct MCH MCHC RDW Lymph % (Auto) [place] % (Auto) Eos % (Auto) Lymph # [place] # Eos # Seg Neutrophils % Seg Neuts % (Manual) Lymphocytes % (Manual) Eosinophils % (Manual) Seg Neutrophils # Lymphocytes # (Manual) Eosinophils # (Manual) PT INR D-Dimer POC ABG pH POC ABG pCO2 POC ABG pO2 ABG pO2 ABG HCO3 ABG Base Excess ABG Hemoglobin Oxyhemoglobin Sodium Potassium Chloride Carbon Dioxide BUN Creatinine Glucose POC Glucose 114 H 121 H 112 H Calcium Phosphorus ALT Alkaline Phosphatase Total Creatine Kinase CK-MB (CK-2) Rel Index Troponin T Albumin LDL Cholesterol Direct PTH Intact Salicylates Acetaminophen Crossmatch
[2019-03-29] MEDS: MINERAL OIL/PETROLATUM, WHITE OPHTH OINT 3.5 GM OU PRN (21:40)
[2019-03-30] MEDS: INSULIN REGULAR, HUMAN 100 UNITS/1 ML SUB-Q SCH ×3 (00:47→12:56)
[2019-03-30] MEDS: IPRATROPIUM/ALBUTEROL SULFATE 3 ML AMPUL.NEB IH SCH ×3 (08:35→19:32)
--- NOTE | 2019-03-30 09:30 | Progress Note ---
Subjective Principal diagnosis: respiratory failure Interval history: Patient was seen today for follow-up of multiple renal related issues On hemodialysis, MWF Events of 24 hours vitals labs intake output medications were reviewed Past medical history: Reviewed Family history: Reviewed Social history: Reviewed Allergies: Reviewed Physical examination: Vitals: Reviewed HEENT:mild pallor or icterus oral mucosa moist Neck: Supple no JVD no thyromegaly Chest: Bilateral clear to auscultation anteriorly Heart: Regular rate and rhythm S1-S2 heard no S3-S4 Abdomen: Soft nontender no voluntary guarding rigidity rebound Extremity: Dry skin less than 1+ peripheral edema Psychiatric: No evidence of agitation and aggression noted Labs and x-rays: Reviewed from today Assessment and plan ESRD: Patient will continue with hemodialysis treatment Saturday, Saturday and Saturday Anemia and end-stage renal disease, currently on Procrit 20,000 units Will order for dialysis related labs Blood pressure appears to be on a low normal side, will reduce ultrafiltration goal Dialysis nurse to ultrafilter only as tolerated Continue with supportive care Multiple other comorbidities including pneumonia, status post tracheotomy, cardiomyopathy ejection fraction 35-40%, history of CVA, atrial fibrillation, decubitus ulceration Continue with supportive care We'll continue to follow and make recommendation for renal standpoint Objective - Vital Signs Vital signs: Vital Signs - 12hr 03/29/19 03/29/19 03/29/19 21:32 22:00 23:00 Temperature Pulse Rate 96 H 97 H Pulse Rate [ Anterior Bilateral Throughout] Pulse Rate [ From Monitor] Respiratory 12 26 H Rate Respiratory Rate [Anterior Bilateral Throughout] Blood Pressure 113/71 123/75 O2 Sat by Pulse 97 99 98 Oximetry O2 Sat by Pulse Oximetry [ Assessment] 03/30/19 03/30/19 03/30/19 00:00 01:01 02:00 Temperature 98.1 F Pulse Rate 91 H 87 95 H Pulse Rate [ Anterior Bilateral Throughout] Pulse Rate [ 91 H From Monitor] Respiratory 16 23 22 Rate Respiratory Rate [Anterior Bilateral Throughout] Blood Pressure 105/60 114/60 115/66 O2 Sat by Pulse 100 100 95 Oximetry O2 Sat by Pulse Oximetry [ Assessment] 03/30/19 03/30/19 03/30/19 03:00 04:00 05:00 Temperature 97.8 F Pulse Rate 90 90 87 Pulse Rate [ Anterior Bilateral Throughout] Pulse Rate [ 86 From Monitor] Respiratory 20 25 H 19 Rate Respiratory Rate [Anterior Bilateral Throughout] Blood Pressure 115/66 111/63 101/62 O2 Sat by Pulse 98 100 100 Oximetry O2 Sat by Pulse Oximetry [ Assessment] 03/30/19 03/30/19 03/30/19 06:00 08:31 08:36 Temperature Pulse Rate 81 Pulse Rate [ Anterior Bilateral Throughout] Pulse Rate [ From Monitor] Respiratory 20 Rate Respiratory Rate [Anterior Bilateral Throughout] Blood Pressure 108/58 O2 Sat by Pulse 100 100 Oximetry O2 Sat by Pulse 100 Oximetry [ Assessment] 03/30/19 08:49 Temperature Pulse Rate Pulse Rate [ 80 Anterior Bilateral Throughout] Pulse Rate [ From Monitor] Respiratory Rate Respiratory 20 Rate [Anterior Bilateral Throughout] Blood Pressure O2 Sat by Pulse Oximetry O2 Sat by Pulse Oximetry [ Assessment] - Lab 03/31/19 10:26 03/31/19 10:26 Most recent lab results ABG pH 7.424 pH Units (7.350-7.450) 03/19/19 04:23 ABG pCO2 48.0 mm Hg 03/19/19 04:23 ABG pO2 78.3 mm Hg (80.0-90.0) L 03/19/19 04:23 ABG HCO3 30.7 mmol/L (20.0-26.0) H 03/19/19 04:23 ABG O2 Saturation 97.0 % (95.0-99.0) 03/19/19 04:23 Calcium 10.1 mg/dL (8.4-10.2) 03/26/19 05:35 Phosphorus 3.10 mg/dL (2.5-4.5) 03/15/19 04:38 Magnesium 2.00 mg/dL (1.7-2.3) 03/21/19 05:00 Medications & Allergies - Medications Allergies/Adverse Reactions: Allergies haloperidol [From Haldol] Adverse Reaction (Verified 03/13/18 12:10) Unknown haloperidol lactate [From Haldol] Adverse Reaction (Verified 03/13/18 12:10) Unknown Home Medications: Home Medications Medication Instructions Recorded Confirmed Last Taken Type risperiDONE [RisperDAL] 1 mg PO QAM 03/13/18 02/21/19 Unknown History Sertraline [Zoloft] 100 mg PO QDAY 08/26/18 02/21/19 Unknown History Polyethylene Glycol 3350 [Miralax 17 gm PO QDAY #30 packet 11/05/18 02/21/19 Unknown Rx 3350] Aspirin EC [Halfprin EC] 81 mg PO DAILY #30 11/19/18 02/21/19 Unknown Rx Docusate Sodium [Colace CAP] 100 mg PO BID #60 11/19/18 02/21/19 Unknown Rx Folic Acid [Folvite] 1 mg PO DAILY #30 tab 11/19/18 02/21/19 Unknown Rx Famotidine [Pepcid] 20 mg PO DAILY tablet 12/08/18 02/21/19 Unknown Rx Gabapentin [Neurontin] 100 mg PO QHS capsule 12/08/18 02/21/19 Unknown Rx Metoprolol [Lopressor TAB] 50 mg PO BID 30 Days tablet 12/08/18 02/21/19 Unknown Rx Sevelamer Carbonate [Renvela] 800 mg PO TIDWM tablet 12/08/18 02/21/19 Unknown Rx hydrALAZINE [Apresoline TAB] 100 mg PO Q8HR #120 tablet 12/08/18 02/21/19 Unknown Rx Acetaminophen [Acetaminophen TAB] 650 mg PO Q12H PRN 12/15/18 02/21/19 Unknown History Glucagon,Human Recombinant 1 mg IJ Q15MIN PRN 12/15/18 02/21/19 Unknown History [Glucagon Emergency Kit] Insulin Aspart [NovoLOG 100 See Protocol SQ QWEEK 12/15/18 02/21/19 Unknown History UNITS/ML VIAL] Active Medications: Generic Name Dose Route Start Last Admin Trade Name Freq PRN Reason Stop Dose Admin Albuterol/Ipratropium 1 ampul 02/24/19 20:00 03/30/19 08:35 Duoneb *Not For Prn Use* IH 1 ampul TIDRT SANCHEZ Administration Lipase/Protease/Amylase 1 each 03/05/19 14:04 Pancrejewel Barrientos 10,500 Unit FEEDTUBE PRN PRN For Clogged Feeding Tube Epoetin Solitario 20,000 unit 03/24/19 11:17 Procrit IV UMA PRN hemodialysis Famotidine 20 mg 02/23/19 10:00 03/29/19 09:28 Pepcid PO 20 mg DAILY SANCHEZ Administration Heparin Sodium (Porcine) 5,000 unit 03/04/19 22:00 03/29/19 21:30 Heparin SUB-Q 5,000 unit Q12HR SANCHEZ Administration Hydrophilic Ointment 1 applic 02/21/19 18:24 03/05/19 08:16 Vaseline Lip Therapy TP 1 applic Q2HR PRN Administration Dry Lips Sodium Chloride 100 mls @ 999 mls/hr 02/26/19 09:00 Nacl 0.9% IV UMA PRN Hypotension Insulin Human Regular 0 units 02/26/19 12:00 03/30/19 08:59 Humulin R SUB-Q Not Given Q6HR [facility] Protocol Metoprolol Tartrate 2.5 mg 02/28/19 12:06 03/15/19 05:15 Lopressor IV 2.5 mg Q4HR PRN Administration Tachycardia Multi-Ingred Cream/Lotion/Oil/Oint 1 applic 02/21/19 18:24 03/29/19 21:40 Artificial Tears Ophth Oint OU 1 applic Q4HR PRN Administration Dry Eye(s) Risperidone 1 mg 02/25/19 13:00 03/29/19 09:28 Risperdal PO 1 mg DAILY SANCHEZ Administration Scopolamine 1 each 03/13/19 04:00 03/28/19 06:39 Transderm-Scop TD 1 each Q3D SANCHEZ Administration Sertraline HCl 100 mg 02/25/19 13:00 03/29/19 09:29 Zoloft PO 100 mg DAILY SANCHEZ Administration Simple Syrup 15 ml 03/05/19 14:04 Simple Syrup FEEDTUBE PRN PRN Hypoglycemia Simple Syrup 30 ml 03/05/19 14:04 Simple Syrup FEEDTUBE PRN PRN Hypoglycemia Sodium Bicarbonate 325 mg 03/05/19 14:04 Sodium Bicarbonate FEEDTUBE PRN PRN For Clogged Feeding Tube Tramadol HCl 50 mg 03/05/19 10:08 03/28/19 21:38 Ultram PO 50 mg Q6H PRN Administration Pain, Moderate (4-6)
[2019-03-30] MEDS: SERTRALINE 100 MG TAB PO SCH (10:17)
[2019-03-30] MEDS: risperiDONE 1 MG TAB PO SCH (10:17)
[2019-03-30] MEDS: FAMOTIDINE 20 MG TAB PO SCH (10:17)
[2019-03-30] MEDS: HEPARIN 5,000 UNIT/1 ML VIAL SUB-Q SCH ×2 (10:17→21:42)
[2019-03-30 10:27] LABS: Basophils # (Auto) 0.1 K/mm3 (0.0-0.1); Basophils % (Auto) 1.3 % (0.0-1.8); Eosinophils # (Auto) 0.6 K/mm3 (0.0-0.4); Eosinophils % (Auto) 7.9 % (0.0-4.3); Hematocrit 24.3 % (35.5-45.6); Hemoglobin 7.7 gm/dl (11.8-15.2); Lymphocytes % (Auto) 12.2 % (13.4-35.0); Mean Corpuscular HGB Conc 32 % (32-34); Mean Corpuscular Volume 87 fl (84-94); Monocytes # (Auto) 0.5 K/mm3 (0.0-0.8); Monocytes % (Auto) 6.3 % (0.0-7.3); Platelet Count 329 K/mm3 (140-440); Red Blood Count 2.81 M/mm3 (3.65-5.03)
[2019-03-30 10:54] LABS: Albumin 2.6 g/dL (3.9-5); Calcium 10.3 mg/dL (8.4-10.2)
--- NOTE | 2019-03-30 11:56 | Progress Note ---
Assessment and Plan 63 y/o male with multiple medical issues admitted with altered mental status, acute respiratory failure requiring mechanical ventilation No new recommendations for today. Please see below. 1. 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 Continue T-piece 3. HD per renal 4. Awaiting placement. Subjective Date of service: 03/30/19 Principal diagnosis: respiratory failure Interval history: No acute events. Stable pulm status. Objective Vital Signs - 12hr 03/30/19 03/30/19 03/30/19 00:00 01:01 02:00 Temperature 98.1 F Pulse Rate 91 H 87 95 H Pulse Rate [ Anterior Bilateral Throughout] Pulse Rate [ 91 H From Monitor] Respiratory 16 23 22 Rate Respiratory Rate [Anterior Bilateral Throughout] Blood Pressure 105/60 114/60 115/66 O2 Sat by Pulse 100 100 95 Oximetry O2 Sat by Pulse Oximetry [ Assessment] 03/30/19 03/30/19 03/30/19 03:00 04:00 05:00 Temperature 97.8 F Pulse Rate 90 90 87 Pulse Rate [ Anterior Bilateral Throughout] Pulse Rate [ 86 From Monitor] Respiratory 20 25 H 19 Rate Respiratory Rate [Anterior Bilateral Throughout] Blood Pressure 115/66 111/63 101/62 O2 Sat by Pulse 98 100 100 Oximetry O2 Sat by Pulse Oximetry [ Assessment] 03/30/19 03/30/19 03/30/19 06:00 07:00 08:00 Temperature Pulse Rate 81 80 80 Pulse Rate [ Anterior Bilateral Throughout] Pulse Rate [ 80 From Monitor] Respiratory 20 20 18 Rate Respiratory Rate [Anterior Bilateral Throughout] Blood Pressure 108/58 112/61 112/64 O2 Sat by Pulse 100 100 100 Oximetry O2 Sat by Pulse Oximetry [ Assessment] 03/30/19 03/30/19 03/30/19 08:31 08:36 08:49 Temperature Pulse Rate Pulse Rate [ 80 Anterior Bilateral Throughout] Pulse Rate [ From Monitor] Respiratory Rate Respiratory 20 Rate [Anterior Bilateral Throughout] Blood Pressure O2 Sat by Pulse 100 Oximetry O2 Sat by Pulse 100 Oximetry [ Assessment] 03/30/19 03/30/19 09:00 10:00 Temperature Pulse Rate 80 79 Pulse Rate [ Anterior Bilateral Throughout] Pulse Rate [ From Monitor] Respiratory 20 19 Rate Respiratory Rate [Anterior Bilateral Throughout] Blood Pressure 104/60 107/63 O2 Sat by Pulse 100 100 Oximetry O2 Sat by Pulse Oximetry [ Assessment] Constitutional: no acute distress, alert Eyes: non-icteric ENT: oropharynx moist Neck: supple Effort: normal Ascultation: Bilateral: diminished breath sounds, other (coarse BS bilaterally) Percussion: Bilateral: not dull Cardiovascular: other (tachy, RR; no mrg) Gastrointestinal: normoactive bowel sounds, soft, non-tender, non-distended, other (ostomy in place, brown stool) Extremities: no cyanosis, no edema, pink and warm Neurologic: other (mild weakness LUE, o/w nonfocal) Psychiatric: other (unable to assess) CBC and BMP: 03/30/19 10:13 03/30/19 10:13 ABG, PT/INR, D-dimer: ABG POC ABG pH 7.510 (7.35-7.45) H 03/18/19 06:38 ABG pH 7.424 pH Units (7.350-7.450) 03/19/19 04:23 POC ABG pCO2 38.9 (35-45) 03/18/19 06:38 ABG pCO2 48.0 mm Hg 03/19/19 04:23 POC ABG pO2 164 (80-105) H 03/18/19 06:38 ABG pO2 78.3 mm Hg (80.0-90.0) L 03/19/19 04:23 POC ABG HCO3 31.0 (22-26 mml/L) 03/18/19 06:38 POC ABG Total CO2 32 (23-27mmol/L) 03/18/19 06:38 POC ABG O2 Sat 100 03/18/19 06:38 ABG O2 Saturation 97.0 % (95.0-99.0) 03/19/19 04:23 PT/INR, D-dimer PT 16.3 Sec. (12.2-14.9) H 03/01/19 09:39 INR 1.35 (0.87-1.13) H 03/01/19 09:39 2987.82 ng/mlDDU (0-234) H 02/22/19 05:54 Abnormal lab findings: Abnormal Labs 02/21/19 02/21/19 02/21/19 18:30 18:30 18:30 WBC RBC 3.26 L Hgb 8.8 L Hct 29.0 L MCH 27 L MCHC 30 L RDW 19.1 H Lymph % (Auto) 6.1 L [place] % (Auto) Eos % (Auto) Lymph # 0.4 L [place] # Eos # Seg Neutrophils % 86.2 H Seg Neuts % (Manual) Lymphocytes % (Manual) Eosinophils % (Manual) Seg Neutrophils # Lymphocytes # (Manual) Eosinophils # (Manual) PT INR D-Dimer POC ABG pH POC ABG pCO2 POC ABG pO2 ABG pO2 ABG HCO3 ABG Base Excess ABG Hemoglobin Oxyhemoglobin Sodium 133 L Potassium 3.3 L Chloride 93.1 L Carbon Dioxide 33 H BUN Creatinine Glucose 161 H POC Glucose Calcium Phosphorus Magnesium ALT Alkaline Phosphatase 136 H Total Creatine Kinase 37 L CK-MB (CK-2) Rel Index Troponin T 0.192 H* Albumin 2.4 L LDL Cholesterol Direct 36 L PTH Intact Salicylates Acetaminophen Crossmatch 02/21/19 02/21/19 02/21/19 18:42 20:04 20:04 WBC RBC Hgb Hct MCH MCHC RDW Lymph % (Auto) [place] % (Auto) Eos % (Auto) Lymph # [place] # Eos # Seg Neutrophils % Seg Neuts % (Manual) Lymphocytes % (Manual) Eosinophils % (Manual) Seg Neutrophils # Lymphocytes # (Manual) Eosinophils # (Manual) PT INR D-Dimer POC ABG pH POC ABG pCO2 56.7 H POC ABG pO2 291 H ABG pO2 ABG HCO3 ABG Base Excess ABG Hemoglobin Oxyhemoglobin Sodium Potassium Chloride Carbon Dioxide BUN Creatinine Glucose POC Glucose Calcium Phosphorus Magnesium ALT Alkaline Phosphatase Total Creatine Kinase CK-MB (CK-2) Rel Index Troponin T Albumin LDL Cholesterol Direct PTH Intact Salicylates < 0.3 L Acetaminophen < 5.0 L Crossmatch 02/21/19 02/22/19 02/22/19 22:35 03:42 03:42 WBC RBC 3.20 L Hgb 8.8 L Hct 27.6 L MCH MCHC RDW 18.9 H Lymph % (Auto) 7.4 L [place] % (Auto) Eos % (Auto) Lymph # 0.7 L [place] # Eos # Seg Neutrophils % 84.7 H Seg Neuts % (Manual) Lymphocytes % (Manual) Eosinophils % (Manual) Seg Neutrophils # Lymphocytes # (Manual) Eosinophils # (Manual) PT INR D-Dimer POC ABG pH POC ABG pCO2 POC ABG pO2 ABG pO2 ABG HCO3 ABG Base Excess ABG Hemoglobin Oxyhemoglobin Sodium 134 L Potassium 2.6 L* D Chloride Carbon Dioxide BUN Creatinine Glucose POC Glucose Calcium Phosphorus Magnesium ALT Alkaline Phosphatase Total Creatine Kinase CK-MB (CK-2) Rel Index 5.2 H Troponin T 0.202 H* Albumin LDL Cholesterol Direct PTH Intact Salicylates Acetaminophen Crossmatch 02/22/19 02/22/19 02/22/19 03:42 05:54 09:04 WBC RBC Hgb Hct MCH MCHC RDW Lymph % (Auto) [place] % (Auto) Eos % (Auto) Lymph # [place] # Eos # Seg Neutrophils % Seg Neuts % (Manual) Lymphocytes % (Manual) Eosinophils % (Manual) Seg Neutrophils # Lymphocytes # (Manual) Eosinophils # (Manual) PT INR D-Dimer 2987.82 H POC ABG pH 7.451 H POC ABG pCO2 POC ABG pO2 ABG pO2 ABG HCO3 ABG Base Excess ABG Hemoglobin Oxyhemoglobin Sodium Potassium Chloride Carbon Dioxide BUN Creatinine Glucose POC Glucose Calcium Phosphorus Magnesium ALT Alkaline Phosphatase Total Creatine Kinase CK-MB (CK-2) Rel Index 5.7 H Troponin T 0.193 H* Albumin LDL Cholesterol Direct PTH Intact Salicylates Acetaminophen Crossmatch 02/22/19 02/22/19 02/23/19 10:36 23:56 00:52 WBC RBC Hgb Hct MCH MCHC RDW Lymph % (Auto) [place] % (Auto) Eos % (Auto) Lymph # [place] # Eos # Seg Neutrophils % Seg Neuts % (Manual) Lymphocytes % (Manual) Eosinophils % (Manual) Seg Neutrophils # Lymphocytes # (Manual) Eosinophils # (Manual) PT INR D-Dimer POC ABG pH POC ABG pCO2 POC ABG pO2 ABG pO2 ABG HCO3 ABG Base Excess ABG Hemoglobin Oxyhemoglobin Sodium Potassium 3.1 L Chloride Carbon Dioxide BUN Creatinine Glucose POC Glucose 58 L 111 H Calcium Phosphorus Magnesium ALT Alkaline Phosphatase Total Creatine Kinase CK-MB (CK-2) Rel Index Troponin T Albumin LDL Cholesterol Direct PTH Intact Salicylates Acetaminophen Crossmatch 02/23/19 02/23/19 02/23/19 05:00 06:35 14:26 WBC RBC Hgb Hct MCH MCHC RDW Lymph % (Auto) [place] % (Auto) Eos % (Auto) Lymph # [place] # Eos # Seg Neutrophils % Seg Neuts % (Manual) Lymphocytes % (Manual) Eosinophils % (Manual) Seg Neutrophils # Lymphocytes # (Manual) Eosinophils # (Manual) PT INR D-Dimer POC ABG pH POC ABG pCO2 POC ABG pO2 ABG pO2 ABG HCO3 ABG Base Excess ABG Hemoglobin Oxyhemoglobin Sodium 135 L Potassium 3.1 L Chloride Carbon Dioxide BUN 21 H Creatinine 2.0 H Glucose 57 L POC Glucose 64 L 62 L Calcium Phosphorus Magnesium ALT Alkaline Phosphatase Total Creatine Kinase CK-MB (CK-2) Rel Index Troponin T Albumin LDL Cholesterol Direct PTH Intact Salicylates Acetaminophen Crossmatch 02/24/19 02/24/19 02/24/19 02:11 04:12 04:55 WBC RBC 2.84 L Hgb 7.8 L Hct 24.5 L MCH MCHC RDW 19.5 H Lymph % (Auto) [place] % (Auto) Eos % (Auto) Lymph # [place] # Eos # Seg Neutrophils % Seg Neuts % (Manual) Lymphocytes % (Manual) Eosinophils % (Manual) Seg Neutrophils # Lymphocytes # (Manual) Eosinophils # (Manual) PT INR D-Dimer POC ABG pH 7.511 H POC ABG pCO2 33.9 L POC ABG pO2 62 L ABG pO2 ABG HCO3 ABG Base Excess ABG Hemoglobin Oxyhemoglobin Sodium Potassium Chloride Carbon Dioxide BUN Creatinine Glucose POC Glucose 69 L Calcium Phosphorus Magnesium ALT Alkaline Phosphatase Total Creatine Kinase CK-MB (CK-2) Rel Index Troponin T Albumin LDL Cholesterol Direct PTH Intact Salicylates Acetaminophen Crossmatch 02/24/19 02/24/19 02/25/19 04:55 05:41 04:45 WBC RBC Hgb Hct MCH MCHC RDW Lymph % (Auto) [place] % (Auto) Eos % (Auto) Lymph # [place] # Eos # Seg Neutrophils % Seg Neuts % (Manual) Lymphocytes % (Manual) Eosinophils % (Manual) Seg Neutrophils # Lymphocytes # (Manual) Eosinophils # (Manual) PT INR D-Dimer POC ABG pH 7.466 H POC ABG pCO2 POC ABG pO2 75 L ABG pO2 ABG HCO3 ABG Base Excess ABG Hemoglobin Oxyhemoglobin Sodium Potassium Chloride Carbon Dioxide BUN Creatinine 1.8 H Glucose 73 L POC Glucose 127 H Calcium Phosphorus Magnesium ALT Alkaline Phosphatase Total Creatine Kinase CK-MB (CK-2) Rel Index Troponin T Albumin LDL Cholesterol Direct PTH Intact Salicylates Acetaminophen Crossmatch 02/25/19 02/25/19 02/26/19 16:34 21:33 03:45 WBC RBC 2.96 L Hgb 8.0 L Hct 25.8 L MCH 27 L MCHC 31 L RDW 20.0 H Lymph % (Auto) [place] % (Auto) Eos % (Auto) Lymph # [place] # Eos # Seg Neutrophils % Seg Neuts % (Manual) Lymphocytes % (Manual) Eosinophils % (Manual) Seg Neutrophils # Lymphocytes # (Manual) Eosinophils # (Manual) PT INR D-Dimer POC ABG pH POC ABG pCO2 POC ABG pO2 ABG pO2 ABG HCO3 ABG Base Excess ABG Hemoglobin Oxyhemoglobin Sodium Potassium Chloride Carbon Dioxide BUN Creatinine Glucose POC Glucose 141 H 106 H Calcium Phosphorus Magnesium ALT Alkaline Phosphatase Total Creatine Kinase CK-MB (CK-2) Rel Index Troponin T Albumin LDL Cholesterol Direct PTH Intact Salicylates Acetaminophen Crossmatch 02/26/19 02/26/19 02/26/19 03:45 04:13 07:53 WBC RBC Hgb Hct MCH MCHC RDW Lymph % (Auto) [place] % (Auto) Eos % (Auto) Lymph # [place] # Eos # Seg Neutrophils % Seg Neuts % (Manual) Lymphocytes % (Manual) Eosinophils % (Manual) Seg Neutrophils # Lymphocytes # (Manual) Eosinophils # (Manual) PT INR D-Dimer POC ABG pH 7.470 H POC ABG pCO2 POC ABG pO2 ABG pO2 ABG HCO3 ABG Base Excess ABG Hemoglobin Oxyhemoglobin Sodium Potassium Chloride Carbon Dioxide BUN Creatinine 1.8 H Glucose POC Glucose 110 H Calcium Phosphorus Magnesium ALT Alkaline Phosphatase Total Creatine Kinase CK-MB (CK-2) Rel Index Troponin T Albumin LDL Cholesterol Direct PTH Intact Salicylates Acetaminophen Crossmatch 02/26/19 02/26/19 02/27/19 11:56 17:43 00:12 WBC RBC Hgb Hct MCH MCHC RDW Lymph % (Auto) [place] % (Auto) Eos % (Auto) Lymph # [place] # Eos # Seg Neutrophils % Seg Neuts % (Manual) Lymphocytes % (Manual) Eosinophils % (Manual) Seg Neutrophils # Lymphocytes # (Manual) Eosinophils # (Manual) PT INR D-Dimer POC ABG pH POC ABG pCO2 POC ABG pO2 ABG pO2 ABG HCO3 ABG Base Excess ABG Hemoglobin Oxyhemoglobin Sodium Potassium Chloride Carbon Dioxide BUN Creatinine Glucose POC Glucose 112 H 127 H 127 H Calcium Phosphorus Magnesium ALT Alkaline Phosphatase Total Creatine Kinase CK-MB (CK-2) Rel Index Troponin T Albumin LDL Cholesterol Direct PTH Intact Salicylates Acetaminophen Crossmatch 02/27/19 02/27/19 02/27/19 04:35 13:15 18:02 WBC RBC Hgb Hct MCH MCHC RDW Lymph % (Auto) [place] % (Auto) Eos % (Auto) Lymph # [place] # Eos # Seg Neutrophils % Seg Neuts % (Manual) Lymphocytes % (Manual) Eosinophils % (Manual) Seg Neutrophils # Lymphocytes # (Manual) Eosinophils # (Manual) PT INR D-Dimer POC ABG pH 7.483 H POC ABG pCO2 POC ABG pO2 61 L ABG pO2 ABG HCO3 ABG Base Excess ABG Hemoglobin Oxyhemoglobin Sodium Potassium Chloride Carbon Dioxide BUN Creatinine Glucose POC Glucose 143 H 106 H Calcium Phosphorus Magnesium ALT Alkaline Phosphatase Total Creatine Kinase CK-MB (CK-2) Rel Index Troponin T Albumin LDL Cholesterol Direct PTH Intact Salicylates Acetaminophen Crossmatch 02/28/19 02/28/19 02/28/19 05:50 11:59 17:52 WBC RBC Hgb Hct MCH MCHC RDW Lymph % (Auto) [place] % (Auto) Eos % (Auto) Lymph # [place] # Eos # Seg Neutrophils % Seg Neuts % (Manual) Lymphocytes % (Manual) Eosinophils % (Manual) Seg Neutrophils # Lymphocytes # (Manual) Eosinophils # (Manual) PT INR D-Dimer POC ABG pH POC ABG pCO2 POC ABG pO2 ABG pO2 ABG HCO3 ABG Base Excess ABG Hemoglobin Oxyhemoglobin Sodium Potassium Chloride Carbon Dioxide BUN Creatinine Glucose POC Glucose 134 H 128 H 142 H Calcium Phosphorus Magnesium ALT Alkaline Phosphatase Total Creatine Kinase CK-MB (CK-2) Rel Index Troponin T Albumin LDL Cholesterol Direct PTH Intact Salicylates Acetaminophen Crossmatch 02/28/19 03/01/19 03/01/19 23:13 05:40 09:39 WBC RBC Hgb Hct MCH MCHC RDW Lymph % (Auto) [place] % (Auto) Eos % (Auto) Lymph # [place] # Eos # Seg Neutrophils % Seg Neuts % (Manual) Lymphocytes % (Manual) Eosinophils % (Manual) Seg Neutrophils # Lymphocytes # (Manual) Eosinophils # (Manual) PT 16.3 H INR 1.35 H D-Dimer POC ABG pH POC ABG pCO2 POC ABG pO2 ABG pO2 ABG HCO3 ABG Base Excess ABG Hemoglobin Oxyhemoglobin Sodium Potassium Chloride Carbon Dioxide BUN Creatinine Glucose POC Glucose 112 H 111 H Calcium Phosphorus Magnesium ALT Alkaline Phosphatase Total Creatine Kinase CK-MB (CK-2) Rel Index Troponin T Albumin LDL Cholesterol Direct PTH Intact Salicylates Acetaminophen Crossmatch 03/01/19 03/01/19 03/01/19 11:56 13:54 17:59 WBC RBC Hgb Hct MCH MCHC RDW Lymph % (Auto) [place] % (Auto) Eos % (Auto) Lymph # [place] # Eos # Seg Neutrophils % Seg Neuts % (Manual) Lymphocytes % (Manual) Eosinophils % (Manual) Seg Neutrophils # Lymphocytes # (Manual) Eosinophils # (Manual) PT INR D-Dimer POC ABG pH POC ABG pCO2 POC ABG pO2 ABG pO2 ABG HCO3 ABG Base Excess ABG Hemoglobin Oxyhemoglobin Sodium Potassium Chloride Carbon Dioxide BUN 33 H Creatinine 2.8 H D Glucose 176 H POC Glucose 199 H 147 H Calcium Phosphorus Magnesium ALT Alkaline Phosphatase Total Creatine Kinase CK-MB (CK-2) Rel Index Troponin T Albumin LDL Cholesterol Direct PTH Intact Salicylates Acetaminophen Crossmatch 03/02/19 03/02/19 03/02/19 05:15 05:15 05:15 WBC RBC 2.73 L Hgb 7.4 L Hct 23.0 L MCH 27 L MCHC RDW 19.9 H Lymph % (Auto) [place] % (Auto) 7.9 H Eos % (Auto) 7.6 H Lymph # 1.0 L [place] # Eos # 0.5 H Seg Neutrophils % Seg Neuts % (Manual) Lymphocytes % (Manual) Eosinophils % (Manual) Seg Neutrophils # Lymphocytes # (Manual) Eosinophils # (Manual) PT INR D-Dimer POC ABG pH POC ABG pCO2 POC ABG pO2 ABG pO2 ABG HCO3 ABG Base Excess ABG Hemoglobin Oxyhemoglobin Sodium Potassium Chloride Carbon Dioxide BUN 43 H Creatinine 3.2 H Glucose POC Glucose Calcium Phosphorus 2.30 L Magnesium ALT Alkaline Phosphatase Total Creatine Kinase CK-MB (CK-2) Rel Index Troponin T Albumin LDL Cholesterol Direct PTH Intact 267.6 H Salicylates Acetaminophen Crossmatch 03/02/19 03/02/19 03/03/19 12:32 18:20 13:30 WBC RBC Hgb Hct MCH MCHC RDW Lymph % (Auto) [place] % (Auto) Eos % (Auto) Lymph # [place] # Eos # Seg Neutrophils % Seg Neuts % (Manual) Lymphocytes % (Manual) Eosinophils % (Manual) Seg Neutrophils # Lymphocytes # (Manual) Eosinophils # (Manual) PT INR D-Dimer POC ABG pH POC ABG pCO2 POC ABG pO2 ABG pO2 ABG HCO3 ABG Base Excess ABG Hemoglobin Oxyhemoglobin Sodium Potassium Chloride 97.3 L Carbon Dioxide BUN 26 H Creatinine 2.2 H Glucose 73 L POC Glucose 111 H 156 H Calcium Phosphorus Magnesium ALT Alkaline Phosphatase Total Creatine Kinase CK-MB (CK-2) Rel Index Troponin T Albumin LDL Cholesterol Direct PTH Intact Salicylates Acetaminophen Crossmatch 03/04/19 03/04/19 03/04/19 00:02 05:37 05:40 WBC RBC 2.63 L Hgb 7.2 L Hct 22.2 L MCH MCHC RDW 20.2 H Lymph % (Auto) 10.5 L [place] % (Auto) Eos % (Auto) 4.6 H Lymph # 0.7 L [place] # Eos # Seg Neutrophils % 76.9 H Seg Neuts % (Manual) Lymphocytes % (Manual) Eosinophils % (Manual) Seg Neutrophils # Lymphocytes # (Manual) Eosinophils # (Manual) PT INR D-Dimer POC ABG pH POC ABG pCO2 POC ABG pO2 ABG pO2 ABG HCO3 ABG Base Excess ABG Hemoglobin Oxyhemoglobin Sodium Potassium Chloride Carbon Dioxide BUN Creatinine Glucose POC Glucose 136 H 123 H Calcium Phosphorus Magnesium ALT Alkaline Phosphatase Total Creatine Kinase CK-MB (CK-2) Rel Index Troponin T Albumin LDL Cholesterol Direct PTH Intact Salicylates Acetaminophen Crossmatch 03/04/19 03/04/19 03/04/19 05:40 11:39 23:20 WBC RBC Hgb Hct MCH MCHC RDW Lymph % (Auto) [place] % (Auto) Eos % (Auto) Lymph # [place] # Eos # Seg Neutrophils % Seg Neuts % (Manual) Lymphocytes % (Manual) Eosinophils % (Manual) Seg Neutrophils # Lymphocytes # (Manual) Eosinophils # (Manual) PT INR D-Dimer POC ABG pH POC ABG pCO2 POC ABG pO2 ABG pO2 ABG HCO3 ABG Base Excess ABG Hemoglobin Oxyhemoglobin Sodium Potassium Chloride Carbon Dioxide BUN 34 H Creatinine 2.7 H Glucose 114 H POC Glucose 175 H 151 H Calcium Phosphorus Magnesium ALT Alkaline Phosphatase Total Creatine Kinase CK-MB (CK-2) Rel Index Troponin T Albumin LDL Cholesterol Direct PTH Intact Salicylates Acetaminophen Crossmatch 03/05/19 03/05/19 03/05/19 05:37 12:08 17:11 WBC RBC Hgb Hct MCH MCHC RDW Lymph % (Auto) [place] % (Auto) Eos % (Auto) Lymph # [place] # Eos # Seg Neutrophils % Seg Neuts % (Manual) Lymphocytes % (Manual) Eosinophils % (Manual) Seg Neutrophils # Lymphocytes # (Manual) Eosinophils # (Manual) PT INR D-Dimer POC ABG pH POC ABG pCO2 POC ABG pO2 ABG pO2 ABG HCO3 ABG Base Excess ABG Hemoglobin Oxyhemoglobin Sodium Potassium Chloride Carbon Dioxide BUN Creatinine Glucose POC Glucose 134 H 135 H 135 H Calcium Phosphorus Magnesium ALT Alkaline Phosphatase Total Creatine Kinase CK-MB (CK-2) Rel Index Troponin T Albumin LDL Cholesterol Direct PTH Intact Salicylates Acetaminophen Crossmatch 03/06/19 03/06/19 03/06/19 00:16 13:05 18:09 WBC RBC Hgb Hct MCH MCHC RDW Lymph % (Auto) [place] % (Auto) Eos % (Auto) Lymph # [place] # Eos # Seg Neutrophils % Seg Neuts % (Manual) Lymphocytes % (Manual) Eosinophils % (Manual) Seg Neutrophils # Lymphocytes # (Manual) Eosinophils # (Manual) PT INR D-Dimer POC ABG pH POC ABG pCO2 POC ABG pO2 ABG pO2 ABG HCO3 ABG Base Excess ABG Hemoglobin Oxyhemoglobin Sodium Potassium Chloride Carbon Dioxide BUN Creatinine Glucose POC Glucose 117 H 113 H 131 H Calcium Phosphorus Magnesium ALT Alkaline Phosphatase Total Creatine Kinase CK-MB (CK-2) Rel Index Troponin T Albumin LDL Cholesterol Direct PTH Intact Salicylates Acetaminophen Crossmatch 03/07/19 03/08/19 03/08/19 05:25 05:33 16:00 WBC RBC 2.44 L Hgb 6.6 L Hct 20.8 L MCH 27 L MCHC RDW 19.2 H Lymph % (Auto) [place] % (Auto) Eos % (Auto) 8.6 H Lymph # 0.8 L [place] # Eos # 0.5 H Seg Neutrophils % 70.7 H Seg Neuts % (Manual) Lymphocytes % (Manual) Eosinophils % (Manual) Seg Neutrophils # Lymphocytes # (Manual) Eosinophils # (Manual) PT INR D-Dimer POC ABG pH POC ABG pCO2 POC ABG pO2 ABG pO2 ABG HCO3 ABG Base Excess ABG Hemoglobin Oxyhemoglobin Sodium Potassium Chloride Carbon Dioxide BUN Creatinine Glucose POC Glucose 106 H 108 H Calcium Phosphorus Magnesium ALT Alkaline Phosphatase Total Creatine Kinase CK-MB (CK-2) Rel Index Troponin T Albumin LDL Cholesterol Direct PTH Intact Salicylates Acetaminophen Crossmatch 03/08/19 03/08/19 03/08/19 16:00 18:38 Unknown WBC RBC Hgb Hct MCH MCHC RDW Lymph % (Auto) [place] % (Auto) Eos % (Auto) Lymph # [place] # Eos # Seg Neutrophils % Seg Neuts % (Manual) Lymphocytes % (Manual) Eosinophils % (Manual) Seg Neutrophils # Lymphocytes # (Manual) Eosinophils # (Manual) PT INR D-Dimer POC ABG pH POC ABG pCO2 POC ABG pO2 ABG pO2 ABG HCO3 ABG Base Excess ABG Hemoglobin Oxyhemoglobin Sodium Potassium 5.4 H D Chloride Carbon Dioxide BUN 47 H Creatinine 2.6 H Glucose POC Glucose 123 H Calcium Phosphorus Magnesium ALT < 5 L Alkaline Phosphatase Total Creatine Kinase CK-MB (CK-2) Rel Index Troponin T Albumin 2.2 L LDL Cholesterol Direct PTH Intact Salicylates Acetaminophen Crossmatch See Detail 03/09/19 03/09/19 03/09/19 10:48 12:28 13:53 WBC RBC 2.85 L Hgb 7.7 L Hct 24.2 L MCH 27 L MCHC RDW 18.7 H Lymph % (Auto) [place] % (Auto) Eos % (Auto) Lymph # [place] # Eos # Seg Neutrophils % Seg Neuts % (Manual) Lymphocytes % (Manual) Eosinophils % (Manual) Seg Neutrophils # Lymphocytes # (Manual) Eosinophils # (Manual) PT INR D-Dimer POC ABG pH POC ABG pCO2 POC ABG pO2 ABG pO2 ABG HCO3 30.5 H ABG Base Excess 5.6 H ABG Hemoglobin 8.1 L Oxyhemoglobin 93.8 L Sodium Potassium Chloride Carbon Dioxide BUN Creatinine Glucose POC Glucose 114 H Calcium Phosphorus Magnesium ALT Alkaline Phosphatase Total Creatine Kinase CK-MB (CK-2) Rel Index Troponin T Albumin LDL Cholesterol Direct PTH Intact Salicylates Acetaminophen Crossmatch 03/09/19 03/09/19 03/10/19 17:58 23:53 12:01 WBC RBC Hgb Hct MCH MCHC RDW Lymph % (Auto) [place] % (Auto) Eos % (Auto) Lymph # [place] # Eos # Seg Neutrophils % Seg Neuts % (Manual) Lymphocytes % (Manual) Eosinophils % (Manual) Seg Neutrophils # Lymphocytes # (Manual) Eosinophils # (Manual) PT INR D-Dimer POC ABG pH POC ABG pCO2 POC ABG pO2 ABG pO2 ABG HCO3 ABG Base Excess ABG Hemoglobin Oxyhemoglobin Sodium Potassium Chloride Carbon Dioxide BUN Creatinine Glucose POC Glucose 108 H 128 H 144 H Calcium Phosphorus Magnesium ALT Alkaline Phosphatase Total Creatine Kinase CK-MB (CK-2) Rel Index Troponin T Albumin LDL Cholesterol Direct PTH Intact Salicylates Acetaminophen Crossmatch 03/10/19 03/11/19 03/11/19 16:50 00:24 05:02 WBC RBC Hgb Hct MCH MCHC RDW Lymph % (Auto) [place] % (Auto) Eos % (Auto) Lymph # [place] # Eos # Seg Neutrophils % Seg Neuts % (Manual) Lymphocytes % (Manual) Eosinophils % (Manual) Seg Neutrophils # Lymphocytes # (Manual) Eosinophils # (Manual) PT INR D-Dimer POC ABG pH POC ABG pCO2 POC ABG pO2 ABG pO2 ABG HCO3 ABG Base Excess ABG Hemoglobin Oxyhemoglobin Sodium Potassium Chloride Carbon Dioxide BUN Creatinine Glucose POC Glucose 147 H 123 H 120 H Calcium Phosphorus Magnesium ALT Alkaline Phosphatase Total Creatine Kinase CK-MB (CK-2) Rel Index Troponin T Albumin LDL Cholesterol Direct PTH Intact Salicylates Acetaminophen Crossmatch 03/11/19 03/11/19 03/11/19 11:56 12:20 18:37 WBC RBC Hgb Hct MCH MCHC RDW Lymph % (Auto) [place] % (Auto) Eos % (Auto) Lymph # [place] # Eos # Seg Neutrophils % Seg Neuts % (Manual) Lymphocytes % (Manual) Eosinophils % (Manual) Seg Neutrophils # Lymphocytes # (Manual) Eosinophils # (Manual) PT INR D-Dimer POC ABG pH POC ABG pCO2 POC ABG pO2 ABG pO2 ABG HCO3 ABG Base Excess ABG Hemoglobin Oxyhemoglobin Sodium Potassium 5.2 H Chloride Carbon Dioxide BUN Creatinine Glucose POC Glucose 123 H 125 H Calcium Phosphorus Magnesium ALT Alkaline Phosphatase Total Creatine Kinase CK-MB (CK-2) Rel Index Troponin T Albumin LDL Cholesterol Direct PTH Intact Salicylates Acetaminophen Crossmatch 03/11/19 03/12/19 03/12/19 22:52 12:04 18:25 WBC RBC Hgb Hct MCH MCHC RDW Lymph % (Auto) [place] % (Auto) Eos % (Auto) Lymph # [place] # Eos # Seg Neutrophils % Seg Neuts % (Manual) Lymphocytes % (Manual) Eosinophils % (Manual) Seg Neutrophils # Lymphocytes # (Manual) Eosinophils # (Manual) PT INR D-Dimer POC ABG pH POC ABG pCO2 POC ABG pO2 ABG pO2 ABG HCO3 ABG Base Excess ABG Hemoglobin Oxyhemoglobin Sodium Potassium Chloride Carbon Dioxide BUN Creatinine Glucose POC Glucose 110 H 106 H 118 H Calcium Phosphorus Magnesium ALT Alkaline Phosphatase Total Creatine Kinase CK-MB (CK-2) Rel Index Troponin T Albumin LDL Cholesterol Direct PTH Intact Salicylates Acetaminophen Crossmatch 03/12/19 03/13/19 03/13/19 23:36 04:38 04:38 WBC RBC 2.95 L Hgb 7.9 L Hct 24.9 L MCH 27 L MCHC RDW 19.9 H Lymph % (Auto) 11.1 L [place] % (Auto) 8.1 H Eos % (Auto) 4.4 H Lymph # 0.9 L [place] # Eos # Seg Neutrophils % 75.4 H Seg Neuts % (Manual) Lymphocytes % (Manual) Eosinophils % (Manual) Seg Neutrophils # Lymphocytes # (Manual) Eosinophils # (Manual) PT INR D-Dimer POC ABG pH POC ABG pCO2 POC ABG pO2 ABG pO2 ABG HCO3 ABG Base Excess ABG Hemoglobin Oxyhemoglobin Sodium 136 L Potassium 5.1 H Chloride 93.8 L Carbon Dioxide BUN 48 H Creatinine 2.7 H Glucose 102 H POC Glucose 115 H Calcium Phosphorus Magnesium ALT < 5 L Alkaline Phosphatase 143 H Total Creatine Kinase CK-MB (CK-2) Rel Index Troponin T Albumin 2.5 L LDL Cholesterol Direct PTH Intact Salicylates Acetaminophen Crossmatch 03/13/19 03/13/19 03/13/19 05:33 13:37 18:03 WBC RBC Hgb Hct MCH MCHC RDW Lymph % (Auto) [place] % (Auto) Eos % (Auto) Lymph # [place] # Eos # Seg Neutrophils % Seg Neuts % (Manual) Lymphocytes % (Manual) Eosinophils % (Manual) Seg Neutrophils # Lymphocytes # (Manual) Eosinophils # (Manual) PT INR D-Dimer POC ABG pH POC ABG pCO2 POC ABG pO2 ABG pO2 ABG HCO3 ABG Base Excess ABG Hemoglobin Oxyhemoglobin Sodium Potassium Chloride Carbon Dioxide BUN Creatinine Glucose POC Glucose 140 H 150 H 158 H Calcium Phosphorus Magnesium ALT Alkaline Phosphatase Total Creatine Kinase CK-MB (CK-2) Rel Index Troponin T Albumin LDL Cholesterol Direct PTH Intact Salicylates Acetaminophen Crossmatch 03/13/19 03/14/19 03/14/19 23:32 05:24 12:20 WBC RBC Hgb Hct MCH MCHC RDW Lymph % (Auto) [place] % (Auto) Eos % (Auto) Lymph # [place] # Eos # Seg Neutrophils % Seg Neuts % (Manual) Lymphocytes % (Manual) Eosinophils % (Manual) Seg Neutrophils # Lymphocytes # (Manual) Eosinophils # (Manual) PT INR D-Dimer POC ABG pH POC ABG pCO2 POC ABG pO2 ABG pO2 ABG HCO3 ABG Base Excess ABG Hemoglobin Oxyhemoglobin Sodium Potassium Chloride Carbon Dioxide BUN Creatinine Glucose POC Glucose 162 H 146 H 127 H Calcium Phosphorus Magnesium ALT Alkaline Phosphatase Total Creatine Kinase CK-MB (CK-2) Rel Index Troponin T Albumin LDL Cholesterol Direct PTH Intact Salicylates Acetaminophen Crossmatch 03/14/19 03/14/19 03/15/19 18:05 23:57 04:38 WBC 12.8 H RBC 3.11 L Hgb 8.1 L Hct 26.5 L MCH 26 L MCHC 31 L RDW 19.7 H Lymph % (Auto) 4.4 L [place] % (Auto) 7.4 H Eos % (Auto) Lymph # 0.6 L [place] # 0.9 H Eos # Seg Neutrophils % 87.3 H Seg Neuts % (Manual) Lymphocytes % (Manual) Eosinophils % (Manual) Seg Neutrophils # 11.2 H Lymphocytes # (Manual) Eosinophils # (Manual) PT INR D-Dimer POC ABG pH POC ABG pCO2 POC ABG pO2 ABG pO2 ABG HCO3 ABG Base Excess ABG Hemoglobin Oxyhemoglobin Sodium Potassium Chloride Carbon Dioxide BUN Creatinine Glucose POC Glucose 142 H 155 H Calcium Phosphorus Magnesium ALT Alkaline Phosphatase Total Creatine Kinase CK-MB (CK-2) Rel Index Troponin T Albumin LDL Cholesterol Direct PTH Intact Salicylates Acetaminophen Crossmatch 03/15/19 03/15/19 03/15/19 04:38 05:31 11:32 WBC RBC Hgb Hct MCH MCHC RDW Lymph % (Auto) [place] % (Auto) Eos % (Auto) Lymph # [place] # Eos # Seg Neutrophils % Seg Neuts % (Manual) Lymphocytes % (Manual) Eosinophils % (Manual) Seg Neutrophils # Lymphocytes # (Manual) Eosinophils # (Manual) PT INR D-Dimer POC ABG pH POC ABG pCO2 POC ABG pO2 ABG pO2 ABG HCO3 ABG Base Excess ABG Hemoglobin Oxyhemoglobin Sodium 135 L Potassium Chloride 91.9 L Carbon Dioxide BUN 54 H Creatinine 2.8 H Glucose 128 H POC Glucose 160 H 109 H Calcium 11.1 H Phosphorus Magnesium ALT Alkaline Phosphatase 161 H Total Creatine Kinase CK-MB (CK-2) Rel Index Troponin T Albumin 2.3 L LDL Cholesterol Direct PTH Intact Salicylates Acetaminophen Crossmatch 03/15/19 03/15/19 03/16/19 18:15 23:41 05:40 WBC RBC Hgb Hct MCH MCHC RDW Lymph % (Auto) [place] % (Auto) Eos % (Auto) Lymph # [place] # Eos # Seg Neutrophils % Seg Neuts % (Manual) Lymphocytes % (Manual) Eosinophils % (Manual) Seg Neutrophils # Lymphocytes # (Manual) Eosinophils # (Manual) PT INR D-Dimer POC ABG pH POC ABG pCO2 POC ABG pO2 ABG pO2 ABG HCO3 ABG Base Excess ABG Hemoglobin Oxyhemoglobin Sodium Potassium Chloride Carbon Dioxide BUN Creatinine Glucose POC Glucose 151 H 110 H 163 H Calcium Phosphorus Magnesium ALT Alkaline Phosphatase Total Creatine Kinase CK-MB (CK-2) Rel Index Troponin T Albumin LDL Cholesterol Direct PTH Intact Salicylates Acetaminophen Crossmatch 03/16/19 03/16/19 03/16/19 11:55 17:04 23:58 WBC RBC Hgb Hct MCH MCHC RDW Lymph % (Auto) [place] % (Auto) Eos % (Auto) Lymph # [place] # Eos # Seg Neutrophils % Seg Neuts % (Manual) Lymphocytes % (Manual) Eosinophils % (Manual) Seg Neutrophils # Lymphocytes # (Manual) Eosinophils # (Manual) PT INR D-Dimer POC ABG pH POC ABG pCO2 POC ABG pO2 ABG pO2 ABG HCO3 ABG Base Excess ABG Hemoglobin Oxyhemoglobin Sodium Potassium Chloride Carbon Dioxide BUN Creatinine Glucose POC Glucose 114 H 147 H 192 H Calcium Phosphorus Magnesium ALT Alkaline Phosphatase Total Creatine Kinase CK-MB (CK-2) Rel Index Troponin T Albumin LDL Cholesterol Direct PTH Intact Salicylates Acetaminophen Crossmatch 03/17/19 03/17/19 03/17/19 05:53 11:17 17:01 WBC RBC Hgb Hct MCH MCHC RDW Lymph % (Auto) [place] % (Auto) Eos % (Auto) Lymph # [place] # Eos # Seg Neutrophils % Seg Neuts % (Manual) Lymphocytes % (Manual) Eosinophils % (Manual) Seg Neutrophils # Lymphocytes # (Manual) Eosinophils # (Manual) PT INR D-Dimer POC ABG pH POC ABG pCO2 POC ABG pO2 ABG pO2 ABG HCO3 ABG Base Excess ABG Hemoglobin Oxyhemoglobin Sodium Potassium Chloride Carbon Dioxide BUN Creatinine Glucose POC Glucose 151 H 161 H 152 H Calcium Phosphorus Magnesium ALT Alkaline Phosphatase Total Creatine Kinase CK-MB (CK-2) Rel Index Troponin T Albumin LDL Cholesterol Direct PTH Intact Salicylates Acetaminophen Crossmatch 03/17/19 03/18/19 03/18/19 21:47 04:15 04:44 WBC RBC Hgb Hct MCH MCHC RDW Lymph % (Auto) [place] % (Auto) Eos % (Auto) Lymph # [place] # Eos # Seg Neutrophils % Seg Neuts % (Manual) Lymphocytes % (Manual) Eosinophils % (Manual) Seg Neutrophils # Lymphocytes # (Manual) Eosinophils # (Manual) PT INR D-Dimer POC ABG pH POC ABG pCO2 POC ABG pO2 ABG pO2 102.8 H ABG HCO3 28.3 H ABG Base Excess ABG Hemoglobin 10.4 L Oxyhemoglobin 94.5 L Sodium Potassium Chloride Carbon Dioxide BUN Creatinine Glucose POC Glucose 170 H 150 H Calcium Phosphorus Magnesium ALT Alkaline Phosphatase Total Creatine Kinase CK-MB (CK-2) Rel Index Troponin T Albumin LDL Cholesterol Direct PTH Intact Salicylates Acetaminophen Crossmatch 03/18/19 03/18/19 03/18/19 06:38 12:12 17:47 WBC RBC Hgb Hct MCH MCHC RDW Lymph % (Auto) [place] % (Auto) Eos % (Auto) Lymph # [place] # Eos # Seg Neutrophils % Seg Neuts % (Manual) Lymphocytes % (Manual) Eosinophils % (Manual) Seg Neutrophils # Lymphocytes # (Manual) Eosinophils # (Manual) PT INR D-Dimer POC ABG pH 7.510 H POC ABG pCO2 POC ABG pO2 164 H ABG pO2 ABG HCO3 ABG Base Excess ABG Hemoglobin Oxyhemoglobin Sodium Potassium Chloride Carbon Dioxide BUN Creatinine Glucose POC Glucose 145 H 149 H Calcium Phosphorus Magnesium ALT Alkaline Phosphatase Total Creatine Kinase CK-MB (CK-2) Rel Index Troponin T Albumin LDL Cholesterol Direct PTH Intact Salicylates Acetaminophen Crossmatch 03/18/19 03/19/19 03/19/19 23:25 01:11 04:23 WBC 15.6 H RBC 2.51 L Hgb 6.5 L Hct 21.6 L MCH 26 L MCHC 30 L RDW 19.8 H Lymph % (Auto) 6.0 L [place] % (Auto) Eos % (Auto) Lymph # 0.9 L [place] # 1.0 H Eos # Seg Neutrophils % 85.5 H Seg Neuts % (Manual) Lymphocytes % (Manual) Eosinophils % (Manual) Seg Neutrophils # 13.4 H Lymphocytes # (Manual) Eosinophils # (Manual) PT INR D-Dimer POC ABG pH POC ABG pCO2 POC ABG pO2 ABG pO2 78.3 L ABG HCO3 30.7 H ABG Base Excess 5.8 H ABG Hemoglobin 5.8 L Oxyhemoglobin 94.6 L Sodium Potassium Chloride Carbon Dioxide BUN Creatinine Glucose POC Glucose 190 H Calcium Phosphorus Magnesium ALT Alkaline Phosphatase Total Creatine Kinase CK-MB (CK-2) Rel Index Troponin T Albumin LDL Cholesterol Direct PTH Intact Salicylates Acetaminophen Crossmatch 03/19/19 03/19/19 03/19/19 05:22 05:35 08:54 WBC RBC Hgb Hct MCH MCHC RDW Lymph % (Auto) [place] % (Auto) Eos % (Auto) Lymph # [place] # Eos # Seg Neutrophils % Seg Neuts % (Manual) Lymphocytes % (Manual) Eosinophils % (Manual) Seg Neutrophils # Lymphocytes # (Manual) Eosinophils # (Manual) PT INR D-Dimer POC ABG pH POC ABG pCO2 POC ABG pO2 ABG pO2 ABG HCO3 ABG Base Excess ABG Hemoglobin Oxyhemoglobin Sodium Potassium Chloride Carbon Dioxide BUN Creatinine Glucose POC Glucose 167 H Calcium Phosphorus Magnesium ALT Alkaline Phosphatase Total Creatine Kinase CK-MB (CK-2) Rel Index Troponin T Albumin LDL Cholesterol Direct PTH Intact Salicylates Acetaminophen Crossmatch See Detail See Detail 03/19/19 03/19/19 03/19/19 12:36 17:02 23:25 WBC RBC Hgb Hct MCH MCHC RDW Lymph % (Auto) [place] % (Auto) Eos % (Auto) Lymph # [place] # Eos # Seg Neutrophils % Seg Neuts % (Manual) Lymphocytes % (Manual) Eosinophils % (Manual) Seg Neutrophils # Lymphocytes # (Manual) Eosinophils # (Manual) PT INR D-Dimer POC ABG pH POC ABG pCO2 POC ABG pO2 ABG pO2 ABG HCO3 ABG Base Excess ABG Hemoglobin Oxyhemoglobin Sodium Potassium Chloride Carbon Dioxide BUN Creatinine Glucose POC Glucose 167 H 135 H 136 H Calcium Phosphorus Magnesium ALT Alkaline Phosphatase Total Creatine Kinase CK-MB (CK-2) Rel Index Troponin T Albumin LDL Cholesterol Direct PTH Intact Salicylates Acetaminophen Crossmatch 03/20/19 03/20/19 03/20/19 05:38 08:40 08:40 WBC RBC 2.61 L Hgb 7.1 L Hct 22.0 L MCH 27 L MCHC RDW 19.6 H Lymph % (Auto) 8.2 L [place] % (Auto) 8.3 H Eos % (Auto) 5.7 H Lymph # 0.8 L [place] # Eos # 0.5 H Seg Neutrophils % 77.3 H Seg Neuts % (Manual) Lymphocytes % (Manual) Eosinophils % (Manual) Seg Neutrophils # Lymphocytes # (Manual) Eosinophils # (Manual) PT INR D-Dimer POC ABG pH POC ABG pCO2 POC ABG pO2 ABG pO2 ABG HCO3 ABG Base Excess ABG Hemoglobin Oxyhemoglobin Sodium Potassium Chloride 95.9 L Carbon Dioxide BUN 69 H Creatinine 2.8 H Glucose 115 H POC Glucose 134 H Calcium 10.5 H Phosphorus Magnesium ALT Alkaline Phosphatase Total Creatine Kinase CK-MB (CK-2) Rel Index Troponin T Albumin LDL Cholesterol Direct PTH Intact Salicylates Acetaminophen Crossmatch 03/20/19 03/20/19 03/20/19 12:13 18:04 23:49 WBC RBC Hgb Hct MCH MCHC RDW Lymph % (Auto) [place] % (Auto) Eos % (Auto) Lymph # [place] # Eos # Seg Neutrophils % Seg Neuts % (Manual) Lymphocytes % (Manual) Eosinophils % (Manual) Seg Neutrophils # Lymphocytes # (Manual) Eosinophils # (Manual) PT INR D-Dimer POC ABG pH POC ABG pCO2 POC ABG pO2 ABG pO2 ABG HCO3 ABG Base Excess ABG Hemoglobin Oxyhemoglobin Sodium Potassium Chloride Carbon Dioxide BUN Creatinine Glucose POC Glucose 144 H 165 H 172 H Calcium Phosphorus Magnesium ALT Alkaline Phosphatase Total Creatine Kinase CK-MB (CK-2) Rel Index Troponin T Albumin LDL Cholesterol Direct PTH Intact Salicylates Acetaminophen Crossmatch 03/21/19 03/21/19 03/21/19 05:00 06:29 06:30 WBC RBC 2.72 L Hgb 7.4 L Hct 22.9 L MCH 27 L MCHC RDW 19.4 H Lymph % (Auto) [place] % (Auto) Eos % (Auto) Lymph # [place] # Eos # Seg Neutrophils % Seg Neuts % (Manual) 81.0 H Lymphocytes % (Manual) 8.0 L Eosinophils % (Manual) 8.0 H Seg Neutrophils # Lymphocytes # (Manual) 0.7 L Eosinophils # (Manual) 0.7 H PT INR D-Dimer POC ABG pH POC ABG pCO2 POC ABG pO2 ABG pO2 ABG HCO3 ABG Base Excess ABG Hemoglobin Oxyhemoglobin Sodium Potassium Chloride Carbon Dioxide 33 H BUN 43 H Creatinine 1.7 H Glucose 145 H POC Glucose 156 H Calcium Phosphorus Magnesium ALT Alkaline Phosphatase 212 H Total Creatine Kinase CK-MB (CK-2) Rel Index Troponin T Albumin 2.2 L LDL Cholesterol Direct PTH Intact Salicylates Acetaminophen Crossmatch 03/21/19 03/21/19 03/22/19 12:02 18:07 00:21 WBC RBC Hgb Hct MCH MCHC RDW Lymph % (Auto) [place] % (Auto) Eos % (Auto) Lymph # [place] # Eos # Seg Neutrophils % Seg Neuts % (Manual) Lymphocytes % (Manual) Eosinophils % (Manual) Seg Neutrophils # Lymphocytes # (Manual) Eosinophils # (Manual) PT INR D-Dimer POC ABG pH POC ABG pCO2 POC ABG pO2 ABG pO2 ABG HCO3 ABG Base Excess ABG Hemoglobin Oxyhemoglobin Sodium Potassium Chloride Carbon Dioxide BUN Creatinine Glucose POC Glucose 163 H 144 H 153 H Calcium Phosphorus Magnesium ALT Alkaline Phosphatase Total Creatine Kinase CK-MB (CK-2) Rel Index Troponin T Albumin LDL Cholesterol Direct PTH Intact Salicylates Acetaminophen Crossmatch 03/22/19 03/22/19 03/22/19 05:23 05:23 05:31 WBC RBC 2.58 L Hgb 7.1 L Hct 21.8 L MCH 27 L MCHC RDW 19.2 H Lymph % (Auto) [place] % (Auto) Eos % (Auto) Lymph # [place] # Eos # Seg Neutrophils % Seg Neuts % (Manual) Lymphocytes % (Manual) Eosinophils % (Manual) Seg Neutrophils # Lymphocytes # (Manual) Eosinophils # (Manual) PT INR D-Dimer POC ABG pH POC ABG pCO2 POC ABG pO2 ABG pO2 ABG HCO3 ABG Base Excess ABG Hemoglobin Oxyhemoglobin Sodium 147 H Potassium Chloride Carbon Dioxide BUN 68 H Creatinine 2.5 H Glucose POC Glucose 116 H Calcium 10.3 H Phosphorus Magnesium ALT Alkaline Phosphatase Total Creatine Kinase CK-MB (CK-2) Rel Index Troponin T Albumin LDL Cholesterol Direct PTH Intact Salicylates Acetaminophen Crossmatch 03/22/19 03/22/19 03/22/19 08:48 12:37 17:35 WBC RBC Hgb Hct MCH MCHC RDW Lymph % (Auto) [place] % (Auto) Eos % (Auto) Lymph # [place] # Eos # Seg Neutrophils % Seg Neuts % (Manual) Lymphocytes % (Manual) Eosinophils % (Manual) Seg Neutrophils # Lymphocytes # (Manual) Eosinophils # (Manual) PT INR D-Dimer POC ABG pH POC ABG pCO2 POC ABG pO2 ABG pO2 ABG HCO3 ABG Base Excess ABG Hemoglobin Oxyhemoglobin Sodium Potassium Chloride Carbon Dioxide BUN Creatinine Glucose POC Glucose 143 H 155 H Calcium Phosphorus Magnesium ALT Alkaline Phosphatase Total Creatine Kinase CK-MB (CK-2) Rel Index Troponin T Albumin LDL Cholesterol Direct PTH Intact Salicylates Acetaminophen Crossmatch See Detail 03/23/19 03/23/19 03/23/19 00:07 04:00 04:00 WBC 11.2 H RBC 2.32 L Hgb 6.4 L Hct 19.7 L* MCH MCHC RDW 19.4 H Lymph % (Auto) [place] % (Auto) Eos % (Auto) Lymph # [place] # Eos # Seg Neutrophils % Seg Neuts % (Manual) Lymphocytes % (Manual) Eosinophils % (Manual) Seg Neutrophils # Lymphocytes # (Manual) Eosinophils # (Manual) PT INR D-Dimer POC ABG pH POC ABG pCO2 POC ABG pO2 ABG pO2 ABG HCO3 ABG Base Excess ABG Hemoglobin Oxyhemoglobin Sodium 147 H Potassium 5.2 H Chloride Carbon Dioxide BUN 86 H Creatinine 3.2 H Glucose 128 H POC Glucose 135 H Calcium 10.3 H Phosphorus Magnesium ALT Alkaline Phosphatase Total Creatine Kinase CK-MB (CK-2) Rel Index Troponin T Albumin LDL Cholesterol Direct PTH Intact Salicylates Acetaminophen Crossmatch 03/23/19 03/23/19 03/23/19 05:21 11:36 11:36 WBC RBC Hgb 7.9 L Hct 25.0 L MCH MCHC RDW Lymph % (Auto) [place] % (Auto) Eos % (Auto) Lymph # [place] # Eos # Seg Neutrophils % Seg Neuts % (Manual) Lymphocytes % (Manual) Eosinophils % (Manual) Seg Neutrophils # Lymphocytes # (Manual) Eosinophils # (Manual) PT INR D-Dimer POC ABG pH POC ABG pCO2 POC ABG pO2 ABG pO2 ABG HCO3 ABG Base Excess ABG Hemoglobin Oxyhemoglobin Sodium Potassium Chloride Carbon Dioxide BUN Creatinine Glucose POC Glucose 132 H 147 H Calcium Phosphorus Magnesium ALT Alkaline Phosphatase Total Creatine Kinase CK-MB (CK-2) Rel Index Troponin T Albumin LDL Cholesterol Direct PTH Intact Salicylates Acetaminophen Crossmatch 03/23/19 03/24/19 03/24/19 17:31 01:22 04:20 WBC 12.2 H RBC 3.05 L Hgb 8.3 L Hct 25.9 L MCH 27 L MCHC RDW 18.7 H Lymph % (Auto) [place] % (Auto) Eos % (Auto) Lymph # [place] # Eos # Seg Neutrophils % Seg Neuts % (Manual) Lymphocytes % (Manual) Eosinophils % (Manual) Seg Neutrophils # Lymphocytes # (Manual) Eosinophils # (Manual) PT INR D-Dimer POC ABG pH POC ABG pCO2 POC ABG pO2 ABG pO2 ABG HCO3 ABG Base Excess ABG Hemoglobin Oxyhemoglobin Sodium Potassium Chloride Carbon Dioxide BUN Creatinine Glucose POC Glucose 182 H 113 H Calcium Phosphorus Magnesium ALT Alkaline Phosphatase Total Creatine Kinase CK-MB (CK-2) Rel Index Troponin T Albumin LDL Cholesterol Direct PTH Intact Salicylates Acetaminophen Crossmatch 03/24/19 03/24/19 03/24/19 04:20 11:59 18:14 WBC RBC Hgb Hct MCH MCHC RDW Lymph % (Auto) [place] % (Auto) Eos % (Auto) Lymph # [place] # Eos # Seg Neutrophils % Seg Neuts % (Manual) Lymphocytes % (Manual) Eosinophils % (Manual) Seg Neutrophils # Lymphocytes # (Manual) Eosinophils # (Manual) PT INR D-Dimer POC ABG pH POC ABG pCO2 POC ABG pO2 ABG pO2 ABG HCO3 ABG Base Excess ABG Hemoglobin Oxyhemoglobin Sodium Potassium Chloride 94.8 L Carbon Dioxide 32 H BUN 53 H Creatinine 2.3 H Glucose POC Glucose 163 H 134 H Calcium Phosphorus Magnesium ALT Alkaline Phosphatase Total Creatine Kinase CK-MB (CK-2) Rel Index Troponin T Albumin LDL Cholesterol Direct PTH Intact Salicylates Acetaminophen Crossmatch 03/24/19 03/25/19 03/25/19 23:15 05:52 12:02 WBC RBC Hgb Hct MCH MCHC RDW Lymph % (Auto) [place] % (Auto) Eos % (Auto) Lymph # [place] # Eos # Seg Neutrophils % Seg Neuts % (Manual) Lymphocytes % (Manual) Eosinophils % (Manual) Seg Neutrophils # Lymphocytes # (Manual) Eosinophils # (Manual) PT INR D-Dimer POC ABG pH POC ABG pCO2 POC ABG pO2 ABG pO2 ABG HCO3 ABG Base Excess ABG Hemoglobin Oxyhemoglobin Sodium Potassium Chloride Carbon Dioxide BUN Creatinine Glucose POC Glucose 129 H 123 H 125 H Calcium Phosphorus Magnesium ALT Alkaline Phosphatase Total Creatine Kinase CK-MB (CK-2) Rel Index Troponin T Albumin LDL Cholesterol Direct PTH Intact Salicylates Acetaminophen Crossmatch 03/25/19 03/26/19 03/26/19 17:27 00:30 05:35 WBC RBC 3.01 L Hgb 8.1 L Hct 25.7 L MCH 27 L MCHC RDW 19.2 H Lymph % (Auto) 11.4 L [place] % (Auto) Eos % (Auto) 8.0 H Lymph # 1.0 L [place] # Eos # 0.7 H Seg Neutrophils % 73.9 H Seg Neuts % (Manual) Lymphocytes % (Manual) Eosinophils % (Manual) Seg Neutrophils # Lymphocytes # (Manual) Eosinophils # (Manual) PT INR D-Dimer POC ABG pH POC ABG pCO2 POC ABG pO2 ABG pO2 ABG HCO3 ABG Base Excess ABG Hemoglobin Oxyhemoglobin Sodium Potassium Chloride Carbon Dioxide BUN Creatinine Glucose POC Glucose 130 H 129 H Calcium Phosphorus Magnesium ALT Alkaline Phosphatase Total Creatine Kinase CK-MB (CK-2) Rel Index Troponin T Albumin LDL Cholesterol Direct PTH Intact Salicylates Acetaminophen Crossmatch 03/26/19 03/26/19 03/26/19 05:35 05:45 12:16 WBC RBC Hgb Hct MCH MCHC RDW Lymph % (Auto) [place] % (Auto) Eos % (Auto) Lymph # [place] # Eos # Seg Neutrophils % Seg Neuts % (Manual) Lymphocytes % (Manual) Eosinophils % (Manual) Seg Neutrophils # Lymphocytes # (Manual) Eosinophils # (Manual) PT INR D-Dimer POC ABG pH POC ABG pCO2 POC ABG pO2 ABG pO2 ABG HCO3 ABG Base Excess ABG Hemoglobin Oxyhemoglobin Sodium Potassium Chloride 94.9 L Carbon Dioxide 31 H BUN 44 H Creatinine 2.0 H Glucose POC Glucose 118 H 107 H Calcium Phosphorus Magnesium ALT Alkaline Phosphatase Total Creatine Kinase CK-MB (CK-2) Rel Index Troponin T Albumin LDL Cholesterol Direct PTH Intact Salicylates Acetaminophen Crossmatch 03/26/19 03/27/19 03/27/19 17:56 00:36 05:37 WBC RBC Hgb Hct MCH MCHC RDW Lymph % (Auto) [place] % (Auto) Eos % (Auto) Lymph # [place] # Eos # Seg Neutrophils % Seg Neuts % (Manual) Lymphocytes % (Manual) Eosinophils % (Manual) Seg Neutrophils # Lymphocytes # (Manual) Eosinophils # (Manual) PT INR D-Dimer POC ABG pH POC ABG pCO2 POC ABG pO2 ABG pO2 ABG HCO3 ABG Base Excess ABG Hemoglobin Oxyhemoglobin Sodium Potassium Chloride Carbon Dioxide BUN Creatinine Glucose POC Glucose 107 H 110 H 122 H Calcium Phosphorus Magnesium ALT Alkaline Phosphatase Total Creatine Kinase CK-MB (CK-2) Rel Index Troponin T Albumin LDL Cholesterol Direct PTH Intact Salicylates Acetaminophen Crossmatch 03/27/19 03/27/19 03/28/19 11:22 18:00 05:17 WBC RBC Hgb Hct MCH MCHC RDW Lymph % (Auto) [place] % (Auto) Eos % (Auto) Lymph # [place] # Eos # Seg Neutrophils % Seg Neuts % (Manual) Lymphocytes % (Manual) Eosinophils % (Manual) Seg Neutrophils # Lymphocytes # (Manual) Eosinophils # (Manual) PT INR D-Dimer POC ABG pH POC ABG pCO2 POC ABG pO2 ABG pO2 ABG HCO3 ABG Base Excess ABG Hemoglobin Oxyhemoglobin Sodium Potassium Chloride Carbon Dioxide BUN Creatinine Glucose POC Glucose 120 H 111 H 107 H Calcium Phosphorus Magnesium ALT Alkaline Phosphatase Total Creatine Kinase CK-MB (CK-2) Rel Index Troponin T Albumin LDL Cholesterol Direct PTH Intact Salicylates Acetaminophen Crossmatch 03/28/19 03/28/19 03/29/19 12:27 18:08 05:47 WBC RBC Hgb Hct MCH MCHC RDW Lymph % (Auto) [place] % (Auto) Eos % (Auto) Lymph # [place] # Eos # Seg Neutrophils % Seg Neuts % (Manual) Lymphocytes % (Manual) Eosinophils % (Manual) Seg Neutrophils # Lymphocytes # (Manual) Eosinophils # (Manual) PT INR D-Dimer POC ABG pH POC ABG pCO2 POC ABG pO2 ABG pO2 ABG HCO3 ABG Base Excess ABG Hemoglobin Oxyhemoglobin Sodium Potassium Chloride Carbon Dioxide BUN Creatinine Glucose POC Glucose 114 H 121 H 112 H Calcium Phosphorus Magnesium ALT Alkaline Phosphatase Total Creatine Kinase CK-MB (CK-2) Rel Index Troponin T Albumin LDL Cholesterol Direct PTH Intact Salicylates Acetaminophen Crossmatch 03/29/19 03/29/19 03/30/19 12:14 18:08 00:31 WBC RBC Hgb Hct MCH MCHC RDW Lymph % (Auto) [place] % (Auto) Eos % (Auto) Lymph # [place] # Eos # Seg Neutrophils % Seg Neuts % (Manual) Lymphocytes % (Manual) Eosinophils % (Manual) Seg Neutrophils # Lymphocytes # (Manual) Eosinophils # (Manual) PT INR D-Dimer POC ABG pH POC ABG pCO2 POC ABG pO2 ABG pO2 ABG HCO3 ABG Base Excess ABG Hemoglobin Oxyhemoglobin Sodium Potassium Chloride Carbon Dioxide BUN Creatinine Glucose POC Glucose 117 H 140 H 114 H Calcium Phosphorus Magnesium ALT Alkaline Phosphatase Total Creatine Kinase CK-MB (CK-2) Rel Index Troponin T Albumin LDL Cholesterol Direct PTH Intact Salicylates Acetaminophen Crossmatch 03/30/19 03/30/19 10:13 10:13 WBC RBC 2.81 L Hgb 7.7 L Hct 24.3 L MCH 27 L MCHC RDW 19.0 H Lymph % (Auto) 12.2 L [place] % (Auto) Eos % (Auto) 7.9 H Lymph # 1.0 L [place] # Eos # 0.6 H Seg Neutrophils % 72.3 H Seg Neuts % (Manual) Lymphocytes % (Manual) Eosinophils % (Manual) Seg Neutrophils # Lymphocytes # (Manual) Eosinophils # (Manual) PT INR D-Dimer POC ABG pH POC ABG pCO2 POC ABG pO2 ABG pO2 ABG HCO3 ABG Base Excess ABG Hemoglobin Oxyhemoglobin Sodium Potassium 5.1 H Chloride 96.5 L Carbon Dioxide BUN 73 H Creatinine 3.9 H D Glucose POC Glucose Calcium 10.3 H Phosphorus 6.30 H Magnesium 2.70 H ALT Alkaline Phosphatase 185 H Total Creatine Kinase CK-MB (CK-2) Rel Index Troponin T Albumin 2.6 L LDL Cholesterol Direct PTH Intact Salicylates Acetaminophen Crossmatch
[2019-03-30] MEDS: EPOETIN ALFA 20,000 UNIT/1 ML INJ IV PRN (16:15)
--- NOTE | 2019-03-30 18:15 | Progress Note ---
Assessment and Plan Assessment and plan: Acute respiratory failure on mechanical ventilator >96 hrs Extubated ; history of tracheostomy on T piece Current management , nebulizers, Currently on trach/peg placed on 03/03. Now off vent, cont oxygen supplement, improving, on t piece, nebulizers, pulmonary critical following acute on chronic systolic CHF/ Acute pulmonary edema, HD per schedule Dilated CMP, EF 35-40% Continue diuresis, supportive care Acute metabolic encephalopathy, resolved, has baseline Dementia. --ESRD on hemodialysis per schedule nephrology following --Bilateral pleural effusions improved with HD --Permanent atrial fibrillation and flutter and hypercoaguable state Not on anticoagulation because of anemia thrombocytopenia rate control meds optimized --Diabetes mellitus type 2 Accu-Chek sliding scale coverage Insulin as needed --NSTEMI type 2 , Cardiology following --Schizophrenia:stable --Legally blind, supportive care --hypertension, Monitor BP,'s adjust medications as needed --Hypokalemia; corrected --Pulmonary hypertension; continue current management --Dysphagia s/p PEG tube; PEG tubes per protocol --Sacral decub ulcer; Wound care --Severe malnutrition /hypoalbuminemia with FTT: 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, ice crusher following PEG placed on 01/02/19 --Multiple decubiti, different stages , s/ p colostomy Left 5th finger, stage 4 pressure ulcer Left heel, deep tissue injury Sacrum, stage 4 pressure ulcer POA Continue wound care --History of sacral osteomyelitis and LE ulcers Completed Antibiotics, contact isolation for ESBL Klebsiella pneumonia on wound culture 01/02/19 --Anemia of chronic disease s/p 1 unit of prbc , stable --RUL atelectasis, probably mucous plugging --DVT prophylaxis; Lovenox --Full code status --Very poor prognosis Dispo; Awaiting SNF placement , difficult to place ,unable to find any NH to take patient. inpatient hospice was recommended, but family is not agreeable at this time. family meeting and ethic consult as needed History Interval history: Patient is 63-year-old -[place] male patient from [facility] with multiple co-morbidities including blindness, CVA, CHF, PPM/ICD, loop recorder since 2012 that is MRI compatible, IDDM type 2, sepsis left foot ulcer, afib, ESRD with complications on HD TTS, hypertension, AOCD and GERD who presented to the ED with hypotensive after intubation in the emergency room. diagnosed with fluid overload, pleural effusion. Patient has had recurrent admission in the hospital for similar reason and was recently discharged from the hospital following treatment of Severe Sepsis due to Necrotizing Unstagable sacral decubitus ulcer with ostemomylitis, has received multiple courses of broad spectrum abx. Acute hypoxic respiratory failure, status post intubation and ventilatory support, now off vent, on T-piece Hospitalist Physical - Constitutional Vitals: Temp Pulse Resp BP Pulse Ox 98.4 F 109 H 18 102/65 100 03/30/19 16:00 03/30/19 17:00 03/30/19 17:00 03/30/19 17:00 03/30/19 17:00 General appearance: Present: no acute distress, well-nourished, other (tracheostomy on T piece) - EENT Eyes: Present: PERRL, EOM intact ENT: hearing intact, clear oral mucosa, dentition normal - Neck Neck: Present: supple, normal ROM - Respiratory Respiratory effort: normal Respiratory: bilateral: CTA - Cardiovascular Rhythm: regular Heart Sounds: Present: S1 & S2. Absent: gallop, rub - Extremities Extremities: no ischemia, No edema, Full ROM - Abdominal General gastrointestinal: soft, non-tender, non-distended, normal bowel sounds - Integumentary Integumentary: Present: clear, warm, dry - Neurologic Neurologic: CNII-XII intact, moves all extremities Results - Labs CBC & Chem 7: 03/30/19 10:13 03/30/19 10:13 Labs: Laboratory Last Values WBC 8.0 K/mm3 (4.5-11.0) 03/30/19 10:13 RBC 2.81 M/mm3 (3.65-5.03) L 03/30/19 10:13 Hgb 7.7 gm/dl (11.8-15.2) L 03/30/19 10:13 Hct 24.3 % (35.5-45.6) L 03/30/19 10:13 MCV 87 fl (84-94) 03/30/19 10:13 MCH 27 pg (28-32) L 03/30/19 10:13 MCHC 32 % (32-34) 03/30/19 10:13 RDW 19.0 % (13.2-15.2) H 03/30/19 10:13 Plt Count 329 K/mm3 (140-440) 03/30/19 10:13 Lymph % (Auto) 12.2 % (13.4-35.0) L 03/30/19 10:13 [place] % (Auto) 6.3 % (0.0-7.3) 03/30/19 10:13 Eos % (Auto) 7.9 % (0.0-4.3) H 03/30/19 10:13 Baso % (Auto) 1.3 % (0.0-1.8) 03/30/19 10:13 Lymph # 1.0 K/mm3 (1.2-5.4) L 03/30/19 10:13 [place] # 0.5 K/mm3 (0.0-0.8) 03/30/19 10:13 Eos # 0.6 K/mm3 (0.0-0.4) H 03/30/19 10:13 Baso # 0.1 K/mm3 (0.0-0.1) 03/30/19 10:13 Add Manual Diff Complete 03/21/19 06:30 Total Counted 100 03/21/19 06:30 Seg Neutrophils % 72.3 % (40.0-70.0) H 03/30/19 10:13 Seg Neuts % (Manual) 81.0 % (40.0-70.0) H 03/21/19 06:30 0 % 03/21/19 06:30 8.0 % (13.4-35.0) L 03/21/19 06:30 Reactive Lymphs % (Man) 0 % 03/21/19 06:30 1.0 % (0.0-7.3) 03/21/19 06:30 8.0 % (0.0-4.3) H 03/21/19 06:30 1.0 % (0.0-1.8) 03/21/19 06:30 1.0 % 03/21/19 06:30 0 % 03/21/19 06:30 0 % 03/21/19 06:30 0 % 03/21/19 06:30 Nucleated RBC % Not Reportable 03/21/19 06:30 Seg Neutrophils # 5.8 K/mm3 (1.8-7.7) 03/30/19 10:13 Seg Neutrophils # Man 6.7 K/mm3 (1.8-7.7) 03/21/19 06:30 Band Neutrophils # 0.0 K/mm3 03/21/19 06:30 0.7 K/mm3 (1.2-5.4) L 03/21/19 06:30 Abs React Lymphs (Man) 0.0 K/mm3 03/21/19 06:30 0.1 K/mm3 (0.0-0.8) 03/21/19 06:30 0.7 K/mm3 (0.0-0.4) H 03/21/19 06:30 0.1 K/mm3 (0.0-0.1) 03/21/19 06:30 0.1 K/mm3 03/21/19 06:30 0.0 K/mm3 03/21/19 06:30 0.0 K/mm3 03/21/19 06:30 Blast Cells # 0.0 K/mm3 03/21/19 06:30 WBC Morphology Not Reportable 03/21/19 06:30 Hypersegmented Neuts Not Reportable 03/21/19 06:30 Hyposegmented Neuts Not Reportable 03/21/19 06:30 Hypogranular Neuts Not Reportable 03/21/19 06:30 Not Reportable 03/21/19 06:30 Not Reportable 03/21/19 06:30 Not Reportable 03/21/19 06:30 Not Reportable 03/21/19 06:30 Not Reportable 03/21/19 06:30 Not Reportable 03/21/19 06:30 Consistent w auto 03/21/19 06:30 Not Reportable 03/21/19 06:30 Plt Clumps, EDTA Not Reportable 03/21/19 06:30 Not Reportable 03/21/19 06:30 Not Reportable 03/21/19 06:30 Not Reportable 03/21/19 06:30 Plt Morphology Comment Not Reportable 03/21/19 06:30 RBC Morphology Not Reportable 03/21/19 06:30 Dimorphic RBCs Not Reportable 03/21/19 06:30 Not Reportable 03/21/19 06:30 Few 03/21/19 06:30 Few 03/21/19 06:30 Few 03/21/19 06:30 Not Reportable 03/21/19 06:30 Not Reportable 03/21/19 06:30 Not Reportable 03/21/19 06:30 Not Reportable 03/21/19 06:30 Not Reportable 03/21/19 06:30 1+ 03/21/19 06:30 Not Reportable 03/21/19 06:30 Few 03/21/19 06:30 Not Reportable 03/21/19 06:30 Not Reportable 03/21/19 06:30 Not Reportable 03/21/19 06:30 Not Reportable 03/21/19 06:30 Not Reportable 03/21/19 06:30 Not Reportable 03/21/19 06:30 Not Reportable 03/21/19 06:30 Acanthocytes (Spur) Not Reportable 03/21/19 06:30 Rouleaux Not Reportable 03/21/19 06:30 Not Reportable 03/21/19 06:30 Not Reportable 03/21/19 06:30 Not Reportable 03/21/19 06:30 Not Reportable 03/21/19 06:30 Hem Pathologist Commnt No 03/21/19 06:30 PT 16.3 Sec. (12.2-14.9) H 03/01/19 09:39 INR 1.35 (0.87-1.13) H 03/01/19 09:39 APTT 33.7 Sec. (24.2-36.6) 02/21/19 18:30 2987.82 ng/mlDDU (0-234) H 02/22/19 05:54 POC ABG pH 7.510 (7.35-7.45) H 03/18/19 06:38 ABG pH 7.424 pH Units (7.350-7.450) 03/19/19 04:23 POC ABG pCO2 38.9 (35-45) 03/18/19 06:38 ABG pCO2 48.0 mm Hg 03/19/19 04:23 POC ABG pO2 164 (80-105) H 03/18/19 06:38 ABG pO2 78.3 mm Hg (80.0-90.0) L 03/19/19 04:23 POC ABG HCO3 31.0 (22-26 mml/L) 03/18/19 06:38 ABG HCO3 30.7 mmol/L (20.0-26.0) H 03/19/19 04:23 POC ABG Total CO2 32 (23-27mmol/L) 03/18/19 06:38 POC ABG O2 Sat 100 03/18/19 06:38 ABG O2 Saturation 97.0 % (95.0-99.0) 03/19/19 04:23 ABG O2 Content 7.9 (0.0-44) 03/19/19 04:23 POC ABG Base Excess 8 ((-2) - (+3)mmol/L) 03/18/19 06:38 ABG Base Excess 5.8 mmol/L (-2.0-3.0) H 03/19/19 04:23 ABG Hemoglobin 5.8 gm/dl (14.0-18.0) L 03/19/19 04:23 ABG Carboxyhemoglobin 2.0 % (0.0-5.0) 03/19/19 04:23 ABG Methemoglobin 0.4 % (0.0-1.5) 03/19/19 04:23 94.6 % (95.0-99.0) L 03/19/19 04:23 35 % 03/19/19 04:23 Sodium 142 mmol/L (137-145) 03/30/19 10:13 Potassium 5.1 mmol/L (3.6-5.0) H 03/30/19 10:13 Chloride 96.5 mmol/L (98-107) L 03/30/19 10:13 Carbon Dioxide 29 mmol/L (22-30) 03/30/19 10:13 22 mmol/L 03/30/19 10:13 BUN 73 mg/dL (9-20) H 03/30/19 10:13 3.9 mg/dL (0.8-1.5) H D 03/30/19 10:13 Estimated GFR 19 ml/min 03/30/19 10:13 19 % 03/30/19 10:13 Glucose 95 mg/dL (75-100) 03/30/19 10:13 POC Glucose 101 (70-105) 03/30/19 12:26 Lactic Acid 1.00 mmol/L (0.7-2.0) 02/21/19 20:58 Calcium 10.3 mg/dL (8.4-10.2) H 03/30/19 10:13 Phosphorus 6.30 mg/dL (2.5-4.5) H 03/30/19 10:13 Magnesium 2.70 mg/dL (1.7-2.3) H 03/30/19 10:13 0.20 mg/dL (0.1-1.2) 03/30/19 10:13 AST 16 units/L (5-40) 03/30/19 10:13 ALT 11 units/L (7-56) 03/30/19 10:13 185 units/L (35-129) H 03/30/19 10:13 28.0 umol/L (25-60) 02/21/19 20:04 64 units/L (55-170) 02/22/19 03:42 CK-MB (CK-2) 3.7 ng/mL (0.0-4.0) 02/22/19 03:42 CK-MB (CK-2) Rel Index 5.7 (0-4) H 02/22/19 03:42 0.193 ng/mL (0.00-0.029) H* 02/22/19 03:42 6.9 g/dL (6.3-8.2) 03/30/19 10:13 2.6 g/dL (3.9-5) L 03/30/19 10:13 0.6 % 03/30/19 10:13 Triglycerides 51 mg/dL (2-149) 02/21/19 18:30 Cholesterol 82 mg/dL (50-199) 02/21/19 18:30 36 mg/dL (50-130) L 02/21/19 18:30 40 mg/dL (40-59) 02/21/19 18:30 2.05 % 02/21/19 18:30 TSH 2.760 mlU/mL (0.270-4.200) 02/21/19 20:04 PTH Intact 267.6 pg/mL (15-65) H 03/02/19 05:15 Salicylates < 0.3 mg/dL (2.8-20.0) L 02/21/19 20:04 Acetaminophen < 5.0 ug/mL (10.0-30.0) L 02/21/19 20:04 Hepatitis A IgM Ab Non-reactive (NonReactive) 02/23/19 11:20 Hep Bs Antigen Non-reactive (Negative) 02/23/19 11:20 Hep B Core IgM Ab Non-reactive (NonReactive) 02/23/19 11:20 Non-reactive (NonReactive) 02/23/19 11:20 Blood Type O POSITIVE 03/22/19 08:48 Antibody Screen Negative 03/22/19 08:48 Crossmatch See Detail 03/22/19 08:48 Active Medications - Current Medications Current Medications: Generic Name Dose Route Start Last Admin Trade Name Freq PRN Reason Stop Dose Admin Albuterol/Ipratropium 1 ampul 02/24/19 20:00 03/30/19 13:55 Duoneb *Not For Prn Use* IH 1 ampul TIDRT SANCHEZ Administration Lipase/Protease/Amylase 1 each 03/05/19 14:04 Pancreaze 10,500 Unit FEEDTUBE PRN PRN For Clogged Feeding Tube Epoetin Solitario 20,000 unit 03/24/19 11:17 Procrit IV UMA PRN hemodialysis Famotidine 20 mg 02/23/19 10:00 03/30/19 10:17 Pepcid PO 20 mg DAILY SANCHEZ Administration Heparin Sodium (Porcine) 5,000 unit 03/04/19 22:00 03/30/19 10:17 Heparin SUB-Q 5,000 unit Q12HR SANCHEZ Administration Hydrophilic Ointment 1 applic 02/21/19 18:24 03/05/19 08:16 Vaseline Lip Therapy TP 1 applic Q2HR PRN Administration Dry Lips Sodium Chloride 100 mls @ 999 mls/hr 02/26/19 09:00 Nacl 0.9% IV UMA PRN Hypotension Insulin Human Regular 0 units 02/26/19 12:00 03/30/19 12:56 Humulin R SUB-Q Not Given Q6HR [facility] Protocol Metoprolol Tartrate 2.5 mg 02/28/19 12:06 03/15/19 05:15 Lopressor IV 2.5 mg Q4HR PRN Administration Tachycardia Multi-Ingred Cream/Lotion/Oil/Oint 1 applic 02/21/19 18:24 03/29/19 21:40 Artificial Tears Ophth Oint OU 1 applic Q4HR PRN Administration Dry Eye(s) Risperidone 1 mg 02/25/19 13:00 03/30/19 10:17 Risperdal PO 1 mg DAILY SANCHEZ Administration Scopolamine 1 each 03/13/19 04:00 03/28/19 06:39 Transderm-Scop TD 1 each Q3D SANCHEZ Administration Sertraline HCl 100 mg 02/25/19 13:00 03/30/19 10:17 Zoloft PO 100 mg DAILY SANCHEZ Administration Simple Syrup 15 ml 03/05/19 14:04 Simple Syrup FEEDTUBE PRN PRN Hypoglycemia Simple Syrup 30 ml 03/05/19 14:04 Simple Syrup FEEDTUBE PRN PRN Hypoglycemia Sodium Bicarbonate 325 mg 03/05/19 14:04 Sodium Bicarbonate FEEDTUBE PRN PRN For Clogged Feeding Tube Tramadol HCl 50 mg 03/05/19 10:08 03/28/19 21:38 Ultram PO 50 mg Q6H PRN Administration Pain, Moderate (4-6) Nutrition/Malnutrition Assess - Dietary Evaluation Nutrition/Malnutrition Findings: Nutrition Notes Start: 02/22/19 12:51 Freq: Status: Active Protocol: Document 03/28/19 11:19 LM (Rec: 03/28/19 11:24 LM [id number]) Nutrition Notes Labs/Tests Reviewed Pertinent Medications Reviewed Height 5 ft 10 in Weight 74.7 kg [place] Body Weight (kg) 75.45 BMI 23.6 Subjective/Other Information Nepro running at 50 ml/hr at time of visit. Pt is tolerating TF. Percent of energy/protein needs met: 96%/100% Burn Absent Trauma Absent #2 Nutrition Diagnosis Increased nutrient needs ( specify in comment below) Diagnosis Progress(for reassessment Continues documentation) #1 Nutrition Diagnosis Inadequate oral intake Diagnosis Progress(for reassessment Continues documentation) Is patient on ventilator? No Is Patient Ambulatory and/or Out of Bed No REE-([place]-confined to bed) 1857.144 Kcal/Kg value to use for calculation 30 Approximate Energy Requirements Using 2241 kcal/Kg Calculation Used for Recommendations Kcal/kg Additional Notes Protein Needs: 90-112g (1.2-1. 5g/kg) Fluid Needs: 1-1.5 L/day Nutrition Intervention Change Diet Order: Continue TF Nutrition Support: Nepro with Carbsteady 1.8 at 50 ml/hr Flush 200 ml q4hr Kcal 2,160 Protein (gm) 97 Fluid (mL) 872 Add Supplement/Snack (indicate name/kcal Abhilash BID /protein ) Provides kCal: 190 Provides Protein (gm) 5 Goal #1 TF tolerance Goal #2 Continue to meet at least 80% of calorie and protein needs via TF Anticipated Discharge Needs: TF Follow-Up By: 04/03/19 Additional Comments F/U for new TF rate/tolerance
[2019-03-31] MEDS: INSULIN REGULAR, HUMAN 100 UNITS/1 ML SUB-Q SCH ×4 (02:40→18:10)
[2019-03-31] MEDS: SCOPOLAMINE TRANSDERMAL PATCH 72 HR TD SCH (03:31)
[2019-03-31] MEDS: IPRATROPIUM/ALBUTEROL SULFATE 3 ML AMPUL.NEB IH SCH ×3 (07:38→19:18)
--- NOTE | 2019-03-31 09:00 | Progress Note ---
Assessment and Plan 63 y/o male with multiple medical issues admitted with altered mental status, acute respiratory failure requiring mechanical ventilation No new recommendations for today. Please see below. 1. Finished therapy for Acinetobacter. 2. Continue T-piece 3. HD per renal 4. Awaiting placement. Subjective Date of service: 03/31/19 Principal diagnosis: respiratory failure Interval history: No acute events. STable pulm status. Still awaiting placement. Objective Vital Signs - 12hr 03/30/19 03/30/19 03/30/19 21:01 22:00 23:00 Temperature Pulse Rate 91 H 89 90 Pulse Rate [ Anterior Bilateral Throughout] Pulse Rate [ From Monitor] Respiratory 19 17 17 Rate Respiratory Rate [Anterior Bilateral Throughout] Blood Pressure 93/55 106/56 106/61 O2 Sat by Pulse 94 100 100 Oximetry O2 Sat by Pulse Oximetry [ Assessment] 03/30/19 03/31/19 03/31/19 23:03 00:00 01:01 Temperature 98.4 F Pulse Rate 91 H 93 H 91 H Pulse Rate [ Anterior Bilateral Throughout] Pulse Rate [ 98 H From Monitor] Respiratory 17 17 16 Rate Respiratory Rate [Anterior Bilateral Throughout] Blood Pressure 106/61 96/60 89/62 O2 Sat by Pulse 100 100 96 Oximetry O2 Sat by Pulse Oximetry [ Assessment] 03/31/19 03/31/19 03/31/19 01:20 02:00 03:01 Temperature Pulse Rate 88 92 H Pulse Rate [ Anterior Bilateral Throughout] Pulse Rate [ From Monitor] Respiratory 20 22 Rate Respiratory Rate [Anterior Bilateral Throughout] Blood Pressure 103/61 107/58 O2 Sat by Pulse 98 92 Oximetry O2 Sat by Pulse 100 Oximetry [ Assessment] 03/31/19 03/31/19 03/31/19 03:40 04:00 05:00 Temperature 98.6 F Pulse Rate 84 92 H Pulse Rate [ Anterior Bilateral Throughout] Pulse Rate [ From Monitor] Respiratory 19 22 Rate Respiratory Rate [Anterior Bilateral Throughout] Blood Pressure 108/57 116/75 O2 Sat by Pulse 99 99 Oximetry O2 Sat by Pulse Oximetry [ Assessment] 03/31/19 03/31/19 03/31/19 06:00 07:00 07:38 Temperature Pulse Rate 84 86 Pulse Rate [ 95 H Anterior Bilateral Throughout] Pulse Rate [ From Monitor] Respiratory 19 15 Rate Respiratory 23 Rate [Anterior Bilateral Throughout] Blood Pressure 112/66 116/61 O2 Sat by Pulse 99 97 Oximetry O2 Sat by Pulse Oximetry [ Assessment] 03/31/19 03/31/19 07:41 07:45 Temperature Pulse Rate Pulse Rate [ Anterior Bilateral Throughout] Pulse Rate [ From Monitor] Respiratory Rate Respiratory Rate [Anterior Bilateral Throughout] Blood Pressure O2 Sat by Pulse 88 Oximetry O2 Sat by Pulse 100 Oximetry [ Assessment] Constitutional: no acute distress, alert Eyes: non-icteric ENT: oropharynx moist Neck: supple Effort: normal Ascultation: Bilateral: diminished breath sounds, other (coarse BS bilaterally) Percussion: Bilateral: not dull Cardiovascular: other (tachy, RR; no mrg) Gastrointestinal: normoactive bowel sounds, soft, non-tender, non-distended, other (ostomy in place, brown stool) Extremities: no cyanosis, no edema, pink and warm Neurologic: other (mild weakness LUE, o/w nonfocal) Psychiatric: other (unable to assess) CBC and BMP: 03/30/19 10:13 03/30/19 10:13 ABG, PT/INR, D-dimer: ABG POC ABG pH 7.510 (7.35-7.45) H 03/18/19 06:38 ABG pH 7.424 pH Units (7.350-7.450) 03/19/19 04:23 POC ABG pCO2 38.9 (35-45) 03/18/19 06:38 ABG pCO2 48.0 mm Hg 03/19/19 04:23 POC ABG pO2 164 (80-105) H 03/18/19 06:38 ABG pO2 78.3 mm Hg (80.0-90.0) L 03/19/19 04:23 POC ABG HCO3 31.0 (22-26 mml/L) 03/18/19 06:38 POC ABG Total CO2 32 (23-27mmol/L) 03/18/19 06:38 POC ABG O2 Sat 100 03/18/19 06:38 ABG O2 Saturation 97.0 % (95.0-99.0) 03/19/19 04:23 PT/INR, D-dimer PT 16.3 Sec. (12.2-14.9) H 03/01/19 09:39 INR 1.35 (0.87-1.13) H 03/01/19 09:39 2987.82 ng/mlDDU (0-234) H 02/22/19 05:54 Abnormal lab findings: Abnormal Labs 02/21/19 02/21/19 02/21/19 18:30 18:30 18:30 WBC RBC 3.26 L Hgb 8.8 L Hct 29.0 L MCH 27 L MCHC 30 L RDW 19.1 H Lymph % (Auto) 6.1 L [place] % (Auto) Eos % (Auto) Lymph # 0.4 L [place] # Eos # Seg Neutrophils % 86.2 H Seg Neuts % (Manual) Lymphocytes % (Manual) Eosinophils % (Manual) Seg Neutrophils # Lymphocytes # (Manual) Eosinophils # (Manual) PT INR D-Dimer POC ABG pH POC ABG pCO2 POC ABG pO2 ABG pO2 ABG HCO3 ABG Base Excess ABG Hemoglobin Oxyhemoglobin Sodium 133 L Potassium 3.3 L Chloride 93.1 L Carbon Dioxide 33 H BUN Creatinine Glucose 161 H POC Glucose Calcium Phosphorus Magnesium ALT Alkaline Phosphatase 136 H Total Creatine Kinase 37 L CK-MB (CK-2) Rel Index Troponin T 0.192 H* Albumin 2.4 L LDL Cholesterol Direct 36 L PTH Intact Salicylates Acetaminophen Crossmatch 02/21/19 02/21/19 02/21/19 18:42 20:04 20:04 WBC RBC Hgb Hct MCH MCHC RDW Lymph % (Auto) [place] % (Auto) Eos % (Auto) Lymph # [place] # Eos # Seg Neutrophils % Seg Neuts % (Manual) Lymphocytes % (Manual) Eosinophils % (Manual) Seg Neutrophils # Lymphocytes # (Manual) Eosinophils # (Manual) PT INR D-Dimer POC ABG pH POC ABG pCO2 56.7 H POC ABG pO2 291 H ABG pO2 ABG HCO3 ABG Base Excess ABG Hemoglobin Oxyhemoglobin Sodium Potassium Chloride Carbon Dioxide BUN Creatinine Glucose POC Glucose Calcium Phosphorus Magnesium ALT Alkaline Phosphatase Total Creatine Kinase CK-MB (CK-2) Rel Index Troponin T Albumin LDL Cholesterol Direct PTH Intact Salicylates < 0.3 L Acetaminophen < 5.0 L Crossmatch 02/21/19 02/22/19 02/22/19 22:35 03:42 03:42 WBC RBC 3.20 L Hgb 8.8 L Hct 27.6 L MCH MCHC RDW 18.9 H Lymph % (Auto) 7.4 L [place] % (Auto) Eos % (Auto) Lymph # 0.7 L [place] # Eos # Seg Neutrophils % 84.7 H Seg Neuts % (Manual) Lymphocytes % (Manual) Eosinophils % (Manual) Seg Neutrophils # Lymphocytes # (Manual) Eosinophils # (Manual) PT INR D-Dimer POC ABG pH POC ABG pCO2 POC ABG pO2 ABG pO2 ABG HCO3 ABG Base Excess ABG Hemoglobin Oxyhemoglobin Sodium 134 L Potassium 2.6 L* D Chloride Carbon Dioxide BUN Creatinine Glucose POC Glucose Calcium Phosphorus Magnesium ALT Alkaline Phosphatase Total Creatine Kinase CK-MB (CK-2) Rel Index 5.2 H Troponin T 0.202 H* Albumin LDL Cholesterol Direct PTH Intact Salicylates Acetaminophen Crossmatch 02/22/19 02/22/19 02/22/19 03:42 05:54 09:04 WBC RBC Hgb Hct MCH MCHC RDW Lymph % (Auto) [place] % (Auto) Eos % (Auto) Lymph # [place] # Eos # Seg Neutrophils % Seg Neuts % (Manual) Lymphocytes % (Manual) Eosinophils % (Manual) Seg Neutrophils # Lymphocytes # (Manual) Eosinophils # (Manual) PT INR D-Dimer 2987.82 H POC ABG pH 7.451 H POC ABG pCO2 POC ABG pO2 ABG pO2 ABG HCO3 ABG Base Excess ABG Hemoglobin Oxyhemoglobin Sodium Potassium Chloride Carbon Dioxide BUN Creatinine Glucose POC Glucose Calcium Phosphorus Magnesium ALT Alkaline Phosphatase Total Creatine Kinase CK-MB (CK-2) Rel Index 5.7 H Troponin T 0.193 H* Albumin LDL Cholesterol Direct PTH Intact Salicylates Acetaminophen Crossmatch 02/22/19 02/22/19 02/23/19 10:36 23:56 00:52 WBC RBC Hgb Hct MCH MCHC RDW Lymph % (Auto) [place] % (Auto) Eos % (Auto) Lymph # [place] # Eos # Seg Neutrophils % Seg Neuts % (Manual) Lymphocytes % (Manual) Eosinophils % (Manual) Seg Neutrophils # Lymphocytes # (Manual) Eosinophils # (Manual) PT INR D-Dimer POC ABG pH POC ABG pCO2 POC ABG pO2 ABG pO2 ABG HCO3 ABG Base Excess ABG Hemoglobin Oxyhemoglobin Sodium Potassium 3.1 L Chloride Carbon Dioxide BUN Creatinine Glucose POC Glucose 58 L 111 H Calcium Phosphorus Magnesium ALT Alkaline Phosphatase Total Creatine Kinase CK-MB (CK-2) Rel Index Troponin T Albumin LDL Cholesterol Direct PTH Intact Salicylates Acetaminophen Crossmatch 02/23/19 02/23/19 02/23/19 05:00 06:35 14:26 WBC RBC Hgb Hct MCH MCHC RDW Lymph % (Auto) [place] % (Auto) Eos % (Auto) Lymph # [place] # Eos # Seg Neutrophils % Seg Neuts % (Manual) Lymphocytes % (Manual) Eosinophils % (Manual) Seg Neutrophils # Lymphocytes # (Manual) Eosinophils # (Manual) PT INR D-Dimer POC ABG pH POC ABG pCO2 POC ABG pO2 ABG pO2 ABG HCO3 ABG Base Excess ABG Hemoglobin Oxyhemoglobin Sodium 135 L Potassium 3.1 L Chloride Carbon Dioxide BUN 21 H Creatinine 2.0 H Glucose 57 L POC Glucose 64 L 62 L Calcium Phosphorus Magnesium ALT Alkaline Phosphatase Total Creatine Kinase CK-MB (CK-2) Rel Index Troponin T Albumin LDL Cholesterol Direct PTH Intact Salicylates Acetaminophen Crossmatch 02/24/19 02/24/19 02/24/19 02:11 04:12 04:55 WBC RBC 2.84 L Hgb 7.8 L Hct 24.5 L MCH MCHC RDW 19.5 H Lymph % (Auto) [place] % (Auto) Eos % (Auto) Lymph # [place] # Eos # Seg Neutrophils % Seg Neuts % (Manual) Lymphocytes % (Manual) Eosinophils % (Manual) Seg Neutrophils # Lymphocytes # (Manual) Eosinophils # (Manual) PT INR D-Dimer POC ABG pH 7.511 H POC ABG pCO2 33.9 L POC ABG pO2 62 L ABG pO2 ABG HCO3 ABG Base Excess ABG Hemoglobin Oxyhemoglobin Sodium Potassium Chloride Carbon Dioxide BUN Creatinine Glucose POC Glucose 69 L Calcium Phosphorus Magnesium ALT Alkaline Phosphatase Total Creatine Kinase CK-MB (CK-2) Rel Index Troponin T Albumin LDL Cholesterol Direct PTH Intact Salicylates Acetaminophen Crossmatch 02/24/19 02/24/19 02/25/19 04:55 05:41 04:45 WBC RBC Hgb Hct MCH MCHC RDW Lymph % (Auto) [place] % (Auto) Eos % (Auto) Lymph # [place] # Eos # Seg Neutrophils % Seg Neuts % (Manual) Lymphocytes % (Manual) Eosinophils % (Manual) Seg Neutrophils # Lymphocytes # (Manual) Eosinophils # (Manual) PT INR D-Dimer POC ABG pH 7.466 H POC ABG pCO2 POC ABG pO2 75 L ABG pO2 ABG HCO3 ABG Base Excess ABG Hemoglobin Oxyhemoglobin Sodium Potassium Chloride Carbon Dioxide BUN Creatinine 1.8 H Glucose 73 L POC Glucose 127 H Calcium Phosphorus Magnesium ALT Alkaline Phosphatase Total Creatine Kinase CK-MB (CK-2) Rel Index Troponin T Albumin LDL Cholesterol Direct PTH Intact Salicylates Acetaminophen Crossmatch 02/25/19 02/25/19 02/26/19 16:34 21:33 03:45 WBC RBC 2.96 L Hgb 8.0 L Hct 25.8 L MCH 27 L MCHC 31 L RDW 20.0 H Lymph % (Auto) [place] % (Auto) Eos % (Auto) Lymph # [place] # Eos # Seg Neutrophils % Seg Neuts % (Manual) Lymphocytes % (Manual) Eosinophils % (Manual) Seg Neutrophils # Lymphocytes # (Manual) Eosinophils # (Manual) PT INR D-Dimer POC ABG pH POC ABG pCO2 POC ABG pO2 ABG pO2 ABG HCO3 ABG Base Excess ABG Hemoglobin Oxyhemoglobin Sodium Potassium Chloride Carbon Dioxide BUN Creatinine Glucose POC Glucose 141 H 106 H Calcium Phosphorus Magnesium ALT Alkaline Phosphatase Total Creatine Kinase CK-MB (CK-2) Rel Index Troponin T Albumin LDL Cholesterol Direct PTH Intact Salicylates Acetaminophen Crossmatch 02/26/19 02/26/19 02/26/19 03:45 04:13 07:53 WBC RBC Hgb Hct MCH MCHC RDW Lymph % (Auto) [place] % (Auto) Eos % (Auto) Lymph # [place] # Eos # Seg Neutrophils % Seg Neuts % (Manual) Lymphocytes % (Manual) Eosinophils % (Manual) Seg Neutrophils # Lymphocytes # (Manual) Eosinophils # (Manual) PT INR D-Dimer POC ABG pH 7.470 H POC ABG pCO2 POC ABG pO2 ABG pO2 ABG HCO3 ABG Base Excess ABG Hemoglobin Oxyhemoglobin Sodium Potassium Chloride Carbon Dioxide BUN Creatinine 1.8 H Glucose POC Glucose 110 H Calcium Phosphorus Magnesium ALT Alkaline Phosphatase Total Creatine Kinase CK-MB (CK-2) Rel Index Troponin T Albumin LDL Cholesterol Direct PTH Intact Salicylates Acetaminophen Crossmatch 02/26/19 02/26/19 02/27/19 11:56 17:43 00:12 WBC RBC Hgb Hct MCH MCHC RDW Lymph % (Auto) [place] % (Auto) Eos % (Auto) Lymph # [place] # Eos # Seg Neutrophils % Seg Neuts % (Manual) Lymphocytes % (Manual) Eosinophils % (Manual) Seg Neutrophils # Lymphocytes # (Manual) Eosinophils # (Manual) PT INR D-Dimer POC ABG pH POC ABG pCO2 POC ABG pO2 ABG pO2 ABG HCO3 ABG Base Excess ABG Hemoglobin Oxyhemoglobin Sodium Potassium Chloride Carbon Dioxide BUN Creatinine Glucose POC Glucose 112 H 127 H 127 H Calcium Phosphorus Magnesium ALT Alkaline Phosphatase Total Creatine Kinase CK-MB (CK-2) Rel Index Troponin T Albumin LDL Cholesterol Direct PTH Intact Salicylates Acetaminophen Crossmatch 02/27/19 02/27/19 02/27/19 04:35 13:15 18:02 WBC RBC Hgb Hct MCH MCHC RDW Lymph % (Auto) [place] % (Auto) Eos % (Auto) Lymph # [place] # Eos # Seg Neutrophils % Seg Neuts % (Manual) Lymphocytes % (Manual) Eosinophils % (Manual) Seg Neutrophils # Lymphocytes # (Manual) Eosinophils # (Manual) PT INR D-Dimer POC ABG pH 7.483 H POC ABG pCO2 POC ABG pO2 61 L ABG pO2 ABG HCO3 ABG Base Excess ABG Hemoglobin Oxyhemoglobin Sodium Potassium Chloride Carbon Dioxide BUN Creatinine Glucose POC Glucose 143 H 106 H Calcium Phosphorus Magnesium ALT Alkaline Phosphatase Total Creatine Kinase CK-MB (CK-2) Rel Index Troponin T Albumin LDL Cholesterol Direct PTH Intact Salicylates Acetaminophen Crossmatch 02/28/19 02/28/19 02/28/19 05:50 11:59 17:52 WBC RBC Hgb Hct MCH MCHC RDW Lymph % (Auto) [place] % (Auto) Eos % (Auto) Lymph # [place] # Eos # Seg Neutrophils % Seg Neuts % (Manual) Lymphocytes % (Manual) Eosinophils % (Manual) Seg Neutrophils # Lymphocytes # (Manual) Eosinophils # (Manual) PT INR D-Dimer POC ABG pH POC ABG pCO2 POC ABG pO2 ABG pO2 ABG HCO3 ABG Base Excess ABG Hemoglobin Oxyhemoglobin Sodium Potassium Chloride Carbon Dioxide BUN Creatinine Glucose POC Glucose 134 H 128 H 142 H Calcium Phosphorus Magnesium ALT Alkaline Phosphatase Total Creatine Kinase CK-MB (CK-2) Rel Index Troponin T Albumin LDL Cholesterol Direct PTH Intact Salicylates Acetaminophen Crossmatch 02/28/19 03/01/19 03/01/19 23:13 05:40 09:39 WBC RBC Hgb Hct MCH MCHC RDW Lymph % (Auto) [place] % (Auto) Eos % (Auto) Lymph # [place] # Eos # Seg Neutrophils % Seg Neuts % (Manual) Lymphocytes % (Manual) Eosinophils % (Manual) Seg Neutrophils # Lymphocytes # (Manual) Eosinophils # (Manual) PT 16.3 H INR 1.35 H D-Dimer POC ABG pH POC ABG pCO2 POC ABG pO2 ABG pO2 ABG HCO3 ABG Base Excess ABG Hemoglobin Oxyhemoglobin Sodium Potassium Chloride Carbon Dioxide BUN Creatinine Glucose POC Glucose 112 H 111 H Calcium Phosphorus Magnesium ALT Alkaline Phosphatase Total Creatine Kinase CK-MB (CK-2) Rel Index Troponin T Albumin LDL Cholesterol Direct PTH Intact Salicylates Acetaminophen Crossmatch 03/01/19 03/01/19 03/01/19 11:56 13:54 17:59 WBC RBC Hgb Hct MCH MCHC RDW Lymph % (Auto) [place] % (Auto) Eos % (Auto) Lymph # [place] # Eos # Seg Neutrophils % Seg Neuts % (Manual) Lymphocytes % (Manual) Eosinophils % (Manual) Seg Neutrophils # Lymphocytes # (Manual) Eosinophils # (Manual) PT INR D-Dimer POC ABG pH POC ABG pCO2 POC ABG pO2 ABG pO2 ABG HCO3 ABG Base Excess ABG Hemoglobin Oxyhemoglobin Sodium Potassium Chloride Carbon Dioxide BUN 33 H Creatinine 2.8 H D Glucose 176 H POC Glucose 199 H 147 H Calcium Phosphorus Magnesium ALT Alkaline Phosphatase Total Creatine Kinase CK-MB (CK-2) Rel Index Troponin T Albumin LDL Cholesterol Direct PTH Intact Salicylates Acetaminophen Crossmatch 03/02/19 03/02/19 03/02/19 05:15 05:15 05:15 WBC RBC 2.73 L Hgb 7.4 L Hct 23.0 L MCH 27 L MCHC RDW 19.9 H Lymph % (Auto) [place] % (Auto) 7.9 H Eos % (Auto) 7.6 H Lymph # 1.0 L [place] # Eos # 0.5 H Seg Neutrophils % Seg Neuts % (Manual) Lymphocytes % (Manual) Eosinophils % (Manual) Seg Neutrophils # Lymphocytes # (Manual) Eosinophils # (Manual) PT INR D-Dimer POC ABG pH POC ABG pCO2 POC ABG pO2 ABG pO2 ABG HCO3 ABG Base Excess ABG Hemoglobin Oxyhemoglobin Sodium Potassium Chloride Carbon Dioxide BUN 43 H Creatinine 3.2 H Glucose POC Glucose Calcium Phosphorus 2.30 L Magnesium ALT Alkaline Phosphatase Total Creatine Kinase CK-MB (CK-2) Rel Index Troponin T Albumin LDL Cholesterol Direct PTH Intact 267.6 H Salicylates Acetaminophen Crossmatch 03/02/19 03/02/19 03/03/19 12:32 18:20 13:30 WBC RBC Hgb Hct MCH MCHC RDW Lymph % (Auto) [place] % (Auto) Eos % (Auto) Lymph # [place] # Eos # Seg Neutrophils % Seg Neuts % (Manual) Lymphocytes % (Manual) Eosinophils % (Manual) Seg Neutrophils # Lymphocytes # (Manual) Eosinophils # (Manual) PT INR D-Dimer POC ABG pH POC ABG pCO2 POC ABG pO2 ABG pO2 ABG HCO3 ABG Base Excess ABG Hemoglobin Oxyhemoglobin Sodium Potassium Chloride 97.3 L Carbon Dioxide BUN 26 H Creatinine 2.2 H Glucose 73 L POC Glucose 111 H 156 H Calcium Phosphorus Magnesium ALT Alkaline Phosphatase Total Creatine Kinase CK-MB (CK-2) Rel Index Troponin T Albumin LDL Cholesterol Direct PTH Intact Salicylates Acetaminophen Crossmatch 03/04/19 03/04/19 03/04/19 00:02 05:37 05:40 WBC RBC 2.63 L Hgb 7.2 L Hct 22.2 L MCH MCHC RDW 20.2 H Lymph % (Auto) 10.5 L [place] % (Auto) Eos % (Auto) 4.6 H Lymph # 0.7 L [place] # Eos # Seg Neutrophils % 76.9 H Seg Neuts % (Manual) Lymphocytes % (Manual) Eosinophils % (Manual) Seg Neutrophils # Lymphocytes # (Manual) Eosinophils # (Manual) PT INR D-Dimer POC ABG pH POC ABG pCO2 POC ABG pO2 ABG pO2 ABG HCO3 ABG Base Excess ABG Hemoglobin Oxyhemoglobin Sodium Potassium Chloride Carbon Dioxide BUN Creatinine Glucose POC Glucose 136 H 123 H Calcium Phosphorus Magnesium ALT Alkaline Phosphatase Total Creatine Kinase CK-MB (CK-2) Rel Index Troponin T Albumin LDL Cholesterol Direct PTH Intact Salicylates Acetaminophen Crossmatch 03/04/19 03/04/19 03/04/19 05:40 11:39 23:20 WBC RBC Hgb Hct MCH MCHC RDW Lymph % (Auto) [place] % (Auto) Eos % (Auto) Lymph # [place] # Eos # Seg Neutrophils % Seg Neuts % (Manual) Lymphocytes % (Manual) Eosinophils % (Manual) Seg Neutrophils # Lymphocytes # (Manual) Eosinophils # (Manual) PT INR D-Dimer POC ABG pH POC ABG pCO2 POC ABG pO2 ABG pO2 ABG HCO3 ABG Base Excess ABG Hemoglobin Oxyhemoglobin Sodium Potassium Chloride Carbon Dioxide BUN 34 H Creatinine 2.7 H Glucose 114 H POC Glucose 175 H 151 H Calcium Phosphorus Magnesium ALT Alkaline Phosphatase Total Creatine Kinase CK-MB (CK-2) Rel Index Troponin T Albumin LDL Cholesterol Direct PTH Intact Salicylates Acetaminophen Crossmatch 03/05/19 03/05/19 03/05/19 05:37 12:08 17:11 WBC RBC Hgb Hct MCH MCHC RDW Lymph % (Auto) [place] % (Auto) Eos % (Auto) Lymph # [place] # Eos # Seg Neutrophils % Seg Neuts % (Manual) Lymphocytes % (Manual) Eosinophils % (Manual) Seg Neutrophils # Lymphocytes # (Manual) Eosinophils # (Manual) PT INR D-Dimer POC ABG pH POC ABG pCO2 POC ABG pO2 ABG pO2 ABG HCO3 ABG Base Excess ABG Hemoglobin Oxyhemoglobin Sodium Potassium Chloride Carbon Dioxide BUN Creatinine Glucose POC Glucose 134 H 135 H 135 H Calcium Phosphorus Magnesium ALT Alkaline Phosphatase Total Creatine Kinase CK-MB (CK-2) Rel Index Troponin T Albumin LDL Cholesterol Direct PTH Intact Salicylates Acetaminophen Crossmatch 03/06/19 03/06/19 03/06/19 00:16 13:05 18:09 WBC RBC Hgb Hct MCH MCHC RDW Lymph % (Auto) [place] % (Auto) Eos % (Auto) Lymph # [place] # Eos # Seg Neutrophils % Seg Neuts % (Manual) Lymphocytes % (Manual) Eosinophils % (Manual) Seg Neutrophils # Lymphocytes # (Manual) Eosinophils # (Manual) PT INR D-Dimer POC ABG pH POC ABG pCO2 POC ABG pO2 ABG pO2 ABG HCO3 ABG Base Excess ABG Hemoglobin Oxyhemoglobin Sodium Potassium Chloride Carbon Dioxide BUN Creatinine Glucose POC Glucose 117 H 113 H 131 H Calcium Phosphorus Magnesium ALT Alkaline Phosphatase Total Creatine Kinase CK-MB (CK-2) Rel Index Troponin T Albumin LDL Cholesterol Direct PTH Intact Salicylates Acetaminophen Crossmatch 03/07/19 03/08/19 03/08/19 05:25 05:33 16:00 WBC RBC 2.44 L Hgb 6.6 L Hct 20.8 L MCH 27 L MCHC RDW 19.2 H Lymph % (Auto) [place] % (Auto) Eos % (Auto) 8.6 H Lymph # 0.8 L [place] # Eos # 0.5 H Seg Neutrophils % 70.7 H Seg Neuts % (Manual) Lymphocytes % (Manual) Eosinophils % (Manual) Seg Neutrophils # Lymphocytes # (Manual) Eosinophils # (Manual) PT INR D-Dimer POC ABG pH POC ABG pCO2 POC ABG pO2 ABG pO2 ABG HCO3 ABG Base Excess ABG Hemoglobin Oxyhemoglobin Sodium Potassium Chloride Carbon Dioxide BUN Creatinine Glucose POC Glucose 106 H 108 H Calcium Phosphorus Magnesium ALT Alkaline Phosphatase Total Creatine Kinase CK-MB (CK-2) Rel Index Troponin T Albumin LDL Cholesterol Direct PTH Intact Salicylates Acetaminophen Crossmatch 03/08/19 03/08/19 03/08/19 16:00 18:38 Unknown WBC RBC Hgb Hct MCH MCHC RDW Lymph % (Auto) [place] % (Auto) Eos % (Auto) Lymph # [place] # Eos # Seg Neutrophils % Seg Neuts % (Manual) Lymphocytes % (Manual) Eosinophils % (Manual) Seg Neutrophils # Lymphocytes # (Manual) Eosinophils # (Manual) PT INR D-Dimer POC ABG pH POC ABG pCO2 POC ABG pO2 ABG pO2 ABG HCO3 ABG Base Excess ABG Hemoglobin Oxyhemoglobin Sodium Potassium 5.4 H D Chloride Carbon Dioxide BUN 47 H Creatinine 2.6 H Glucose POC Glucose 123 H Calcium Phosphorus Magnesium ALT < 5 L Alkaline Phosphatase Total Creatine Kinase CK-MB (CK-2) Rel Index Troponin T Albumin 2.2 L LDL Cholesterol Direct PTH Intact Salicylates Acetaminophen Crossmatch See Detail 03/09/19 03/09/19 03/09/19 10:48 12:28 13:53 WBC RBC 2.85 L Hgb 7.7 L Hct 24.2 L MCH 27 L MCHC RDW 18.7 H Lymph % (Auto) [place] % (Auto) Eos % (Auto) Lymph # [place] # Eos # Seg Neutrophils % Seg Neuts % (Manual) Lymphocytes % (Manual) Eosinophils % (Manual) Seg Neutrophils # Lymphocytes # (Manual) Eosinophils # (Manual) PT INR D-Dimer POC ABG pH POC ABG pCO2 POC ABG pO2 ABG pO2 ABG HCO3 30.5 H ABG Base Excess 5.6 H ABG Hemoglobin 8.1 L Oxyhemoglobin 93.8 L Sodium Potassium Chloride Carbon Dioxide BUN Creatinine Glucose POC Glucose 114 H Calcium Phosphorus Magnesium ALT Alkaline Phosphatase Total Creatine Kinase CK-MB (CK-2) Rel Index Troponin T Albumin LDL Cholesterol Direct PTH Intact Salicylates Acetaminophen Crossmatch 03/09/19 03/09/19 03/10/19 17:58 23:53 12:01 WBC RBC Hgb Hct MCH MCHC RDW Lymph % (Auto) [place] % (Auto) Eos % (Auto) Lymph # [place] # Eos # Seg Neutrophils % Seg Neuts % (Manual) Lymphocytes % (Manual) Eosinophils % (Manual) Seg Neutrophils # Lymphocytes # (Manual) Eosinophils # (Manual) PT INR D-Dimer POC ABG pH POC ABG pCO2 POC ABG pO2 ABG pO2 ABG HCO3 ABG Base Excess ABG Hemoglobin Oxyhemoglobin Sodium Potassium Chloride Carbon Dioxide BUN Creatinine Glucose POC Glucose 108 H 128 H 144 H Calcium Phosphorus Magnesium ALT Alkaline Phosphatase Total Creatine Kinase CK-MB (CK-2) Rel Index Troponin T Albumin LDL Cholesterol Direct PTH Intact Salicylates Acetaminophen Crossmatch 03/10/19 03/11/19 03/11/19 16:50 00:24 05:02 WBC RBC Hgb Hct MCH MCHC RDW Lymph % (Auto) [place] % (Auto) Eos % (Auto) Lymph # [place] # Eos # Seg Neutrophils % Seg Neuts % (Manual) Lymphocytes % (Manual) Eosinophils % (Manual) Seg Neutrophils # Lymphocytes # (Manual) Eosinophils # (Manual) PT INR D-Dimer POC ABG pH POC ABG pCO2 POC ABG pO2 ABG pO2 ABG HCO3 ABG Base Excess ABG Hemoglobin Oxyhemoglobin Sodium Potassium Chloride Carbon Dioxide BUN Creatinine Glucose POC Glucose 147 H 123 H 120 H Calcium Phosphorus Magnesium ALT Alkaline Phosphatase Total Creatine Kinase CK-MB (CK-2) Rel Index Troponin T Albumin LDL Cholesterol Direct PTH Intact Salicylates Acetaminophen Crossmatch 03/11/19 03/11/19 03/11/19 11:56 12:20 18:37 WBC RBC Hgb Hct MCH MCHC RDW Lymph % (Auto) [place] % (Auto) Eos % (Auto) Lymph # [place] # Eos # Seg Neutrophils % Seg Neuts % (Manual) Lymphocytes % (Manual) Eosinophils % (Manual) Seg Neutrophils # Lymphocytes # (Manual) Eosinophils # (Manual) PT INR D-Dimer POC ABG pH POC ABG pCO2 POC ABG pO2 ABG pO2 ABG HCO3 ABG Base Excess ABG Hemoglobin Oxyhemoglobin Sodium Potassium 5.2 H Chloride Carbon Dioxide BUN Creatinine Glucose POC Glucose 123 H 125 H Calcium Phosphorus Magnesium ALT Alkaline Phosphatase Total Creatine Kinase CK-MB (CK-2) Rel Index Troponin T Albumin LDL Cholesterol Direct PTH Intact Salicylates Acetaminophen Crossmatch 03/11/19 03/12/19 03/12/19 22:52 12:04 18:25 WBC RBC Hgb Hct MCH MCHC RDW Lymph % (Auto) [place] % (Auto) Eos % (Auto) Lymph # [place] # Eos # Seg Neutrophils % Seg Neuts % (Manual) Lymphocytes % (Manual) Eosinophils % (Manual) Seg Neutrophils # Lymphocytes # (Manual) Eosinophils # (Manual) PT INR D-Dimer POC ABG pH POC ABG pCO2 POC ABG pO2 ABG pO2 ABG HCO3 ABG Base Excess ABG Hemoglobin Oxyhemoglobin Sodium Potassium Chloride Carbon Dioxide BUN Creatinine Glucose POC Glucose 110 H 106 H 118 H Calcium Phosphorus Magnesium ALT Alkaline Phosphatase Total Creatine Kinase CK-MB (CK-2) Rel Index Troponin T Albumin LDL Cholesterol Direct PTH Intact Salicylates Acetaminophen Crossmatch 03/12/19 03/13/19 03/13/19 23:36 04:38 04:38 WBC RBC 2.95 L Hgb 7.9 L Hct 24.9 L MCH 27 L MCHC RDW 19.9 H Lymph % (Auto) 11.1 L [place] % (Auto) 8.1 H Eos % (Auto) 4.4 H Lymph # 0.9 L [place] # Eos # Seg Neutrophils % 75.4 H Seg Neuts % (Manual) Lymphocytes % (Manual) Eosinophils % (Manual) Seg Neutrophils # Lymphocytes # (Manual) Eosinophils # (Manual) PT INR D-Dimer POC ABG pH POC ABG pCO2 POC ABG pO2 ABG pO2 ABG HCO3 ABG Base Excess ABG Hemoglobin Oxyhemoglobin Sodium 136 L Potassium 5.1 H Chloride 93.8 L Carbon Dioxide BUN 48 H Creatinine 2.7 H Glucose 102 H POC Glucose 115 H Calcium Phosphorus Magnesium ALT < 5 L Alkaline Phosphatase 143 H Total Creatine Kinase CK-MB (CK-2) Rel Index Troponin T Albumin 2.5 L LDL Cholesterol Direct PTH Intact Salicylates Acetaminophen Crossmatch 03/13/19 03/13/19 03/13/19 05:33 13:37 18:03 WBC RBC Hgb Hct MCH MCHC RDW Lymph % (Auto) [place] % (Auto) Eos % (Auto) Lymph # [place] # Eos # Seg Neutrophils % Seg Neuts % (Manual) Lymphocytes % (Manual) Eosinophils % (Manual) Seg Neutrophils # Lymphocytes # (Manual) Eosinophils # (Manual) PT INR D-Dimer POC ABG pH POC ABG pCO2 POC ABG pO2 ABG pO2 ABG HCO3 ABG Base Excess ABG Hemoglobin Oxyhemoglobin Sodium Potassium Chloride Carbon Dioxide BUN Creatinine Glucose POC Glucose 140 H 150 H 158 H Calcium Phosphorus Magnesium ALT Alkaline Phosphatase Total Creatine Kinase CK-MB (CK-2) Rel Index Troponin T Albumin LDL Cholesterol Direct PTH Intact Salicylates Acetaminophen Crossmatch 03/13/19 03/14/19 03/14/19 23:32 05:24 12:20 WBC RBC Hgb Hct MCH MCHC RDW Lymph % (Auto) [place] % (Auto) Eos % (Auto) Lymph # [place] # Eos # Seg Neutrophils % Seg Neuts % (Manual) Lymphocytes % (Manual) Eosinophils % (Manual) Seg Neutrophils # Lymphocytes # (Manual) Eosinophils # (Manual) PT INR D-Dimer POC ABG pH POC ABG pCO2 POC ABG pO2 ABG pO2 ABG HCO3 ABG Base Excess ABG Hemoglobin Oxyhemoglobin Sodium Potassium Chloride Carbon Dioxide BUN Creatinine Glucose POC Glucose 162 H 146 H 127 H Calcium Phosphorus Magnesium ALT Alkaline Phosphatase Total Creatine Kinase CK-MB (CK-2) Rel Index Troponin T Albumin LDL Cholesterol Direct PTH Intact Salicylates Acetaminophen Crossmatch 03/14/19 03/14/19 03/15/19 18:05 23:57 04:38 WBC 12.8 H RBC 3.11 L Hgb 8.1 L Hct 26.5 L MCH 26 L MCHC 31 L RDW 19.7 H Lymph % (Auto) 4.4 L [place] % (Auto) 7.4 H Eos % (Auto) Lymph # 0.6 L [place] # 0.9 H Eos # Seg Neutrophils % 87.3 H Seg Neuts % (Manual) Lymphocytes % (Manual) Eosinophils % (Manual) Seg Neutrophils # 11.2 H Lymphocytes # (Manual) Eosinophils # (Manual) PT INR D-Dimer POC ABG pH POC ABG pCO2 POC ABG pO2 ABG pO2 ABG HCO3 ABG Base Excess ABG Hemoglobin Oxyhemoglobin Sodium Potassium Chloride Carbon Dioxide BUN Creatinine Glucose POC Glucose 142 H 155 H Calcium Phosphorus Magnesium ALT Alkaline Phosphatase Total Creatine Kinase CK-MB (CK-2) Rel Index Troponin T Albumin LDL Cholesterol Direct PTH Intact Salicylates Acetaminophen Crossmatch 03/15/19 03/15/19 03/15/19 04:38 05:31 11:32 WBC RBC Hgb Hct MCH MCHC RDW Lymph % (Auto) [place] % (Auto) Eos % (Auto) Lymph # [place] # Eos # Seg Neutrophils % Seg Neuts % (Manual) Lymphocytes % (Manual) Eosinophils % (Manual) Seg Neutrophils # Lymphocytes # (Manual) Eosinophils # (Manual) PT INR D-Dimer POC ABG pH POC ABG pCO2 POC ABG pO2 ABG pO2 ABG HCO3 ABG Base Excess ABG Hemoglobin Oxyhemoglobin Sodium 135 L Potassium Chloride 91.9 L Carbon Dioxide BUN 54 H Creatinine 2.8 H Glucose 128 H POC Glucose 160 H 109 H Calcium 11.1 H Phosphorus Magnesium ALT Alkaline Phosphatase 161 H Total Creatine Kinase CK-MB (CK-2) Rel Index Troponin T Albumin 2.3 L LDL Cholesterol Direct PTH Intact Salicylates Acetaminophen Crossmatch 03/15/19 03/15/19 03/16/19 18:15 23:41 05:40 WBC RBC Hgb Hct MCH MCHC RDW Lymph % (Auto) [place] % (Auto) Eos % (Auto) Lymph # [place] # Eos # Seg Neutrophils % Seg Neuts % (Manual) Lymphocytes % (Manual) Eosinophils % (Manual) Seg Neutrophils # Lymphocytes # (Manual) Eosinophils # (Manual) PT INR D-Dimer POC ABG pH POC ABG pCO2 POC ABG pO2 ABG pO2 ABG HCO3 ABG Base Excess ABG Hemoglobin Oxyhemoglobin Sodium Potassium Chloride Carbon Dioxide BUN Creatinine Glucose POC Glucose 151 H 110 H 163 H Calcium Phosphorus Magnesium ALT Alkaline Phosphatase Total Creatine Kinase CK-MB (CK-2) Rel Index Troponin T Albumin LDL Cholesterol Direct PTH Intact Salicylates Acetaminophen Crossmatch 03/16/19 03/16/19 03/16/19 11:55 17:04 23:58 WBC RBC Hgb Hct MCH MCHC RDW Lymph % (Auto) [place] % (Auto) Eos % (Auto) Lymph # [place] # Eos # Seg Neutrophils % Seg Neuts % (Manual) Lymphocytes % (Manual) Eosinophils % (Manual) Seg Neutrophils # Lymphocytes # (Manual) Eosinophils # (Manual) PT INR D-Dimer POC ABG pH POC ABG pCO2 POC ABG pO2 ABG pO2 ABG HCO3 ABG Base Excess ABG Hemoglobin Oxyhemoglobin Sodium Potassium Chloride Carbon Dioxide BUN Creatinine Glucose POC Glucose 114 H 147 H 192 H Calcium Phosphorus Magnesium ALT Alkaline Phosphatase Total Creatine Kinase CK-MB (CK-2) Rel Index Troponin T Albumin LDL Cholesterol Direct PTH Intact Salicylates Acetaminophen Crossmatch 03/17/19 03/17/19 03/17/19 05:53 11:17 17:01 WBC RBC Hgb Hct MCH MCHC RDW Lymph % (Auto) [place] % (Auto) Eos % (Auto) Lymph # [place] # Eos # Seg Neutrophils % Seg Neuts % (Manual) Lymphocytes % (Manual) Eosinophils % (Manual) Seg Neutrophils # Lymphocytes # (Manual) Eosinophils # (Manual) PT INR D-Dimer POC ABG pH POC ABG pCO2 POC ABG pO2 ABG pO2 ABG HCO3 ABG Base Excess ABG Hemoglobin Oxyhemoglobin Sodium Potassium Chloride Carbon Dioxide BUN Creatinine Glucose POC Glucose 151 H 161 H 152 H Calcium Phosphorus Magnesium ALT Alkaline Phosphatase Total Creatine Kinase CK-MB (CK-2) Rel Index Troponin T Albumin LDL Cholesterol Direct PTH Intact Salicylates Acetaminophen Crossmatch 03/17/19 03/18/19 03/18/19 21:47 04:15 04:44 WBC RBC Hgb Hct MCH MCHC RDW Lymph % (Auto) [place] % (Auto) Eos % (Auto) Lymph # [place] # Eos # Seg Neutrophils % Seg Neuts % (Manual) Lymphocytes % (Manual) Eosinophils % (Manual) Seg Neutrophils # Lymphocytes # (Manual) Eosinophils # (Manual) PT INR D-Dimer POC ABG pH POC ABG pCO2 POC ABG pO2 ABG pO2 102.8 H ABG HCO3 28.3 H ABG Base Excess ABG Hemoglobin 10.4 L Oxyhemoglobin 94.5 L Sodium Potassium Chloride Carbon Dioxide BUN Creatinine Glucose POC Glucose 170 H 150 H Calcium Phosphorus Magnesium ALT Alkaline Phosphatase Total Creatine Kinase CK-MB (CK-2) Rel Index Troponin T Albumin LDL Cholesterol Direct PTH Intact Salicylates Acetaminophen Crossmatch 03/18/19 03/18/19 03/18/19 06:38 12:12 17:47 WBC RBC Hgb Hct MCH MCHC RDW Lymph % (Auto) [place] % (Auto) Eos % (Auto) Lymph # [place] # Eos # Seg Neutrophils % Seg Neuts % (Manual) Lymphocytes % (Manual) Eosinophils % (Manual) Seg Neutrophils # Lymphocytes # (Manual) Eosinophils # (Manual) PT INR D-Dimer POC ABG pH 7.510 H POC ABG pCO2 POC ABG pO2 164 H ABG pO2 ABG HCO3 ABG Base Excess ABG Hemoglobin Oxyhemoglobin Sodium Potassium Chloride Carbon Dioxide BUN Creatinine Glucose POC Glucose 145 H 149 H Calcium Phosphorus Magnesium ALT Alkaline Phosphatase Total Creatine Kinase CK-MB (CK-2) Rel Index Troponin T Albumin LDL Cholesterol Direct PTH Intact Salicylates Acetaminophen Crossmatch 03/18/19 03/19/19 03/19/19 23:25 01:11 04:23 WBC 15.6 H RBC 2.51 L Hgb 6.5 L Hct 21.6 L MCH 26 L MCHC 30 L RDW 19.8 H Lymph % (Auto) 6.0 L [place] % (Auto) Eos % (Auto) Lymph # 0.9 L [place] # 1.0 H Eos # Seg Neutrophils % 85.5 H Seg Neuts % (Manual) Lymphocytes % (Manual) Eosinophils % (Manual) Seg Neutrophils # 13.4 H Lymphocytes # (Manual) Eosinophils # (Manual) PT INR D-Dimer POC ABG pH POC ABG pCO2 POC ABG pO2 ABG pO2 78.3 L ABG HCO3 30.7 H ABG Base Excess 5.8 H ABG Hemoglobin 5.8 L Oxyhemoglobin 94.6 L Sodium Potassium Chloride Carbon Dioxide BUN Creatinine Glucose POC Glucose 190 H Calcium Phosphorus Magnesium ALT Alkaline Phosphatase Total Creatine Kinase CK-MB (CK-2) Rel Index Troponin T Albumin LDL Cholesterol Direct PTH Intact Salicylates Acetaminophen Crossmatch 03/19/19 03/19/19 03/19/19 05:22 05:35 08:54 WBC RBC Hgb Hct MCH MCHC RDW Lymph % (Auto) [place] % (Auto) Eos % (Auto) Lymph # [place] # Eos # Seg Neutrophils % Seg Neuts % (Manual) Lymphocytes % (Manual) Eosinophils % (Manual) Seg Neutrophils # Lymphocytes # (Manual) Eosinophils # (Manual) PT INR D-Dimer POC ABG pH POC ABG pCO2 POC ABG pO2 ABG pO2 ABG HCO3 ABG Base Excess ABG Hemoglobin Oxyhemoglobin Sodium Potassium Chloride Carbon Dioxide BUN Creatinine Glucose POC Glucose 167 H Calcium Phosphorus Magnesium ALT Alkaline Phosphatase Total Creatine Kinase CK-MB (CK-2) Rel Index Troponin T Albumin LDL Cholesterol Direct PTH Intact Salicylates Acetaminophen Crossmatch See Detail See Detail 03/19/19 03/19/19 03/19/19 12:36 17:02 23:25 WBC RBC Hgb Hct MCH MCHC RDW Lymph % (Auto) [place] % (Auto) Eos % (Auto) Lymph # [place] # Eos # Seg Neutrophils % Seg Neuts % (Manual) Lymphocytes % (Manual) Eosinophils % (Manual) Seg Neutrophils # Lymphocytes # (Manual) Eosinophils # (Manual) PT INR D-Dimer POC ABG pH POC ABG pCO2 POC ABG pO2 ABG pO2 ABG HCO3 ABG Base Excess ABG Hemoglobin Oxyhemoglobin Sodium Potassium Chloride Carbon Dioxide BUN Creatinine Glucose POC Glucose 167 H 135 H 136 H Calcium Phosphorus Magnesium ALT Alkaline Phosphatase Total Creatine Kinase CK-MB (CK-2) Rel Index Troponin T Albumin LDL Cholesterol Direct PTH Intact Salicylates Acetaminophen Crossmatch 03/20/19 03/20/19 03/20/19 05:38 08:40 08:40 WBC RBC 2.61 L Hgb 7.1 L Hct 22.0 L MCH 27 L MCHC RDW 19.6 H Lymph % (Auto) 8.2 L [place] % (Auto) 8.3 H Eos % (Auto) 5.7 H Lymph # 0.8 L [place] # Eos # 0.5 H Seg Neutrophils % 77.3 H Seg Neuts % (Manual) Lymphocytes % (Manual) Eosinophils % (Manual) Seg Neutrophils # Lymphocytes # (Manual) Eosinophils # (Manual) PT INR D-Dimer POC ABG pH POC ABG pCO2 POC ABG pO2 ABG pO2 ABG HCO3 ABG Base Excess ABG Hemoglobin Oxyhemoglobin Sodium Potassium Chloride 95.9 L Carbon Dioxide BUN 69 H Creatinine 2.8 H Glucose 115 H POC Glucose 134 H Calcium 10.5 H Phosphorus Magnesium ALT Alkaline Phosphatase Total Creatine Kinase CK-MB (CK-2) Rel Index Troponin T Albumin LDL Cholesterol Direct PTH Intact Salicylates Acetaminophen Crossmatch 03/20/19 03/20/19 03/20/19 12:13 18:04 23:49 WBC RBC Hgb Hct MCH MCHC RDW Lymph % (Auto) [place] % (Auto) Eos % (Auto) Lymph # [place] # Eos # Seg Neutrophils % Seg Neuts % (Manual) Lymphocytes % (Manual) Eosinophils % (Manual) Seg Neutrophils # Lymphocytes # (Manual) Eosinophils # (Manual) PT INR D-Dimer POC ABG pH POC ABG pCO2 POC ABG pO2 ABG pO2 ABG HCO3 ABG Base Excess ABG Hemoglobin Oxyhemoglobin Sodium Potassium Chloride Carbon Dioxide BUN Creatinine Glucose POC Glucose 144 H 165 H 172 H Calcium Phosphorus Magnesium ALT Alkaline Phosphatase Total Creatine Kinase CK-MB (CK-2) Rel Index Troponin T Albumin LDL Cholesterol Direct PTH Intact Salicylates Acetaminophen Crossmatch 03/21/19 03/21/19 03/21/19 05:00 06:29 06:30 WBC RBC 2.72 L Hgb 7.4 L Hct 22.9 L MCH 27 L MCHC RDW 19.4 H Lymph % (Auto) [place] % (Auto) Eos % (Auto) Lymph # [place] # Eos # Seg Neutrophils % Seg Neuts % (Manual) 81.0 H Lymphocytes % (Manual) 8.0 L Eosinophils % (Manual) 8.0 H Seg Neutrophils # Lymphocytes # (Manual) 0.7 L Eosinophils # (Manual) 0.7 H PT INR D-Dimer POC ABG pH POC ABG pCO2 POC ABG pO2 ABG pO2 ABG HCO3 ABG Base Excess ABG Hemoglobin Oxyhemoglobin Sodium Potassium Chloride Carbon Dioxide 33 H BUN 43 H Creatinine 1.7 H Glucose 145 H POC Glucose 156 H Calcium Phosphorus Magnesium ALT Alkaline Phosphatase 212 H Total Creatine Kinase CK-MB (CK-2) Rel Index Troponin T Albumin 2.2 L LDL Cholesterol Direct PTH Intact Salicylates Acetaminophen Crossmatch 03/21/19 03/21/19 03/22/19 12:02 18:07 00:21 WBC RBC Hgb Hct MCH MCHC RDW Lymph % (Auto) [place] % (Auto) Eos % (Auto) Lymph # [place] # Eos # Seg Neutrophils % Seg Neuts % (Manual) Lymphocytes % (Manual) Eosinophils % (Manual) Seg Neutrophils # Lymphocytes # (Manual) Eosinophils # (Manual) PT INR D-Dimer POC ABG pH POC ABG pCO2 POC ABG pO2 ABG pO2 ABG HCO3 ABG Base Excess ABG Hemoglobin Oxyhemoglobin Sodium Potassium Chloride Carbon Dioxide BUN Creatinine Glucose POC Glucose 163 H 144 H 153 H Calcium Phosphorus Magnesium ALT Alkaline Phosphatase Total Creatine Kinase CK-MB (CK-2) Rel Index Troponin T Albumin LDL Cholesterol Direct PTH Intact Salicylates Acetaminophen Crossmatch 03/22/19 03/22/19 03/22/19 05:23 05:23 05:31 WBC RBC 2.58 L Hgb 7.1 L Hct 21.8 L MCH 27 L MCHC RDW 19.2 H Lymph % (Auto) [place] % (Auto) Eos % (Auto) Lymph # [place] # Eos # Seg Neutrophils % Seg Neuts % (Manual) Lymphocytes % (Manual) Eosinophils % (Manual) Seg Neutrophils # Lymphocytes # (Manual) Eosinophils # (Manual) PT INR D-Dimer POC ABG pH POC ABG pCO2 POC ABG pO2 ABG pO2 ABG HCO3 ABG Base Excess ABG Hemoglobin Oxyhemoglobin Sodium 147 H Potassium Chloride Carbon Dioxide BUN 68 H Creatinine 2.5 H Glucose POC Glucose 116 H Calcium 10.3 H Phosphorus Magnesium ALT Alkaline Phosphatase Total Creatine Kinase CK-MB (CK-2) Rel Index Troponin T Albumin LDL Cholesterol Direct PTH Intact Salicylates Acetaminophen Crossmatch 03/22/19 03/22/19 03/22/19 08:48 12:37 17:35 WBC RBC Hgb Hct MCH MCHC RDW Lymph % (Auto) [place] % (Auto) Eos % (Auto) Lymph # [place] # Eos # Seg Neutrophils % Seg Neuts % (Manual) Lymphocytes % (Manual) Eosinophils % (Manual) Seg Neutrophils # Lymphocytes # (Manual) Eosinophils # (Manual) PT INR D-Dimer POC ABG pH POC ABG pCO2 POC ABG pO2 ABG pO2 ABG HCO3 ABG Base Excess ABG Hemoglobin Oxyhemoglobin Sodium Potassium Chloride Carbon Dioxide BUN Creatinine Glucose POC Glucose 143 H 155 H Calcium Phosphorus Magnesium ALT Alkaline Phosphatase Total Creatine Kinase CK-MB (CK-2) Rel Index Troponin T Albumin LDL Cholesterol Direct PTH Intact Salicylates Acetaminophen Crossmatch See Detail 03/23/19 03/23/19 03/23/19 00:07 04:00 04:00 WBC 11.2 H RBC 2.32 L Hgb 6.4 L Hct 19.7 L* MCH MCHC RDW 19.4 H Lymph % (Auto) [place] % (Auto) Eos % (Auto) Lymph # [place] # Eos # Seg Neutrophils % Seg Neuts % (Manual) Lymphocytes % (Manual) Eosinophils % (Manual) Seg Neutrophils # Lymphocytes # (Manual) Eosinophils # (Manual) PT INR D-Dimer POC ABG pH POC ABG pCO2 POC ABG pO2 ABG pO2 ABG HCO3 ABG Base Excess ABG Hemoglobin Oxyhemoglobin Sodium 147 H Potassium 5.2 H Chloride Carbon Dioxide BUN 86 H Creatinine 3.2 H Glucose 128 H POC Glucose 135 H Calcium 10.3 H Phosphorus Magnesium ALT Alkaline Phosphatase Total Creatine Kinase CK-MB (CK-2) Rel Index Troponin T Albumin LDL Cholesterol Direct PTH Intact Salicylates Acetaminophen Crossmatch 03/23/19 03/23/19 03/23/19 05:21 11:36 11:36 WBC RBC Hgb 7.9 L Hct 25.0 L MCH MCHC RDW Lymph % (Auto) [place] % (Auto) Eos % (Auto) Lymph # [place] # Eos # Seg Neutrophils % Seg Neuts % (Manual) Lymphocytes % (Manual) Eosinophils % (Manual) Seg Neutrophils # Lymphocytes # (Manual) Eosinophils # (Manual) PT INR D-Dimer POC ABG pH POC ABG pCO2 POC ABG pO2 ABG pO2 ABG HCO3 ABG Base Excess ABG Hemoglobin Oxyhemoglobin Sodium Potassium Chloride Carbon Dioxide BUN Creatinine Glucose POC Glucose 132 H 147 H Calcium Phosphorus Magnesium ALT Alkaline Phosphatase Total Creatine Kinase CK-MB (CK-2) Rel Index Troponin T Albumin LDL Cholesterol Direct PTH Intact Salicylates Acetaminophen Crossmatch 03/23/19 03/24/19 03/24/19 17:31 01:22 04:20 WBC 12.2 H RBC 3.05 L Hgb 8.3 L Hct 25.9 L MCH 27 L MCHC RDW 18.7 H Lymph % (Auto) [place] % (Auto) Eos % (Auto) Lymph # [place] # Eos # Seg Neutrophils % Seg Neuts % (Manual) Lymphocytes % (Manual) Eosinophils % (Manual) Seg Neutrophils # Lymphocytes # (Manual) Eosinophils # (Manual) PT INR D-Dimer POC ABG pH POC ABG pCO2 POC ABG pO2 ABG pO2 ABG HCO3 ABG Base Excess ABG Hemoglobin Oxyhemoglobin Sodium Potassium Chloride Carbon Dioxide BUN Creatinine Glucose POC Glucose 182 H 113 H Calcium Phosphorus Magnesium ALT Alkaline Phosphatase Total Creatine Kinase CK-MB (CK-2) Rel Index Troponin T Albumin LDL Cholesterol Direct PTH Intact Salicylates Acetaminophen Crossmatch 03/24/19 03/24/19 03/24/19 04:20 11:59 18:14 WBC RBC Hgb Hct MCH MCHC RDW Lymph % (Auto) [place] % (Auto) Eos % (Auto) Lymph # [place] # Eos # Seg Neutrophils % Seg Neuts % (Manual) Lymphocytes % (Manual) Eosinophils % (Manual) Seg Neutrophils # Lymphocytes # (Manual) Eosinophils # (Manual) PT INR D-Dimer POC ABG pH POC ABG pCO2 POC ABG pO2 ABG pO2 ABG HCO3 ABG Base Excess ABG Hemoglobin Oxyhemoglobin Sodium Potassium Chloride 94.8 L Carbon Dioxide 32 H BUN 53 H Creatinine 2.3 H Glucose POC Glucose 163 H 134 H Calcium Phosphorus Magnesium ALT Alkaline Phosphatase Total Creatine Kinase CK-MB (CK-2) Rel Index Troponin T Albumin LDL Cholesterol Direct PTH Intact Salicylates Acetaminophen Crossmatch 03/24/19 03/25/19 03/25/19 23:15 05:52 12:02 WBC RBC Hgb Hct MCH MCHC RDW Lymph % (Auto) [place] % (Auto) Eos % (Auto) Lymph # [place] # Eos # Seg Neutrophils % Seg Neuts % (Manual) Lymphocytes % (Manual) Eosinophils % (Manual) Seg Neutrophils # Lymphocytes # (Manual) Eosinophils # (Manual) PT INR D-Dimer POC ABG pH POC ABG pCO2 POC ABG pO2 ABG pO2 ABG HCO3 ABG Base Excess ABG Hemoglobin Oxyhemoglobin Sodium Potassium Chloride Carbon Dioxide BUN Creatinine Glucose POC Glucose 129 H 123 H 125 H Calcium Phosphorus Magnesium ALT Alkaline Phosphatase Total Creatine Kinase CK-MB (CK-2) Rel Index Troponin T Albumin LDL Cholesterol Direct PTH Intact Salicylates Acetaminophen Crossmatch 03/25/19 03/26/19 03/26/19 17:27 00:30 05:35 WBC RBC 3.01 L Hgb 8.1 L Hct 25.7 L MCH 27 L MCHC RDW 19.2 H Lymph % (Auto) 11.4 L [place] % (Auto) Eos % (Auto) 8.0 H Lymph # 1.0 L [place] # Eos # 0.7 H Seg Neutrophils % 73.9 H Seg Neuts % (Manual) Lymphocytes % (Manual) Eosinophils % (Manual) Seg Neutrophils # Lymphocytes # (Manual) Eosinophils # (Manual) PT INR D-Dimer POC ABG pH POC ABG pCO2 POC ABG pO2 ABG pO2 ABG HCO3 ABG Base Excess ABG Hemoglobin Oxyhemoglobin Sodium Potassium Chloride Carbon Dioxide BUN Creatinine Glucose POC Glucose 130 H 129 H Calcium Phosphorus Magnesium ALT Alkaline Phosphatase Total Creatine Kinase CK-MB (CK-2) Rel Index Troponin T Albumin LDL Cholesterol Direct PTH Intact Salicylates Acetaminophen Crossmatch 03/26/19 03/26/19 03/26/19 05:35 05:45 12:16 WBC RBC Hgb Hct MCH MCHC RDW Lymph % (Auto) [place] % (Auto) Eos % (Auto) Lymph # [place] # Eos # Seg Neutrophils % Seg Neuts % (Manual) Lymphocytes % (Manual) Eosinophils % (Manual) Seg Neutrophils # Lymphocytes # (Manual) Eosinophils # (Manual) PT INR D-Dimer POC ABG pH POC ABG pCO2 POC ABG pO2 ABG pO2 ABG HCO3 ABG Base Excess ABG Hemoglobin Oxyhemoglobin Sodium Potassium Chloride 94.9 L Carbon Dioxide 31 H BUN 44 H Creatinine 2.0 H Glucose POC Glucose 118 H 107 H Calcium Phosphorus Magnesium ALT Alkaline Phosphatase Total Creatine Kinase CK-MB (CK-2) Rel Index Troponin T Albumin LDL Cholesterol Direct PTH Intact Salicylates Acetaminophen Crossmatch 03/26/19 03/27/19 03/27/19 17:56 00:36 05:37 WBC RBC Hgb Hct MCH MCHC RDW Lymph % (Auto) [place] % (Auto) Eos % (Auto) Lymph # [place] # Eos # Seg Neutrophils % Seg Neuts % (Manual) Lymphocytes % (Manual) Eosinophils % (Manual) Seg Neutrophils # Lymphocytes # (Manual) Eosinophils # (Manual) PT INR D-Dimer POC ABG pH POC ABG pCO2 POC ABG pO2 ABG pO2 ABG HCO3 ABG Base Excess ABG Hemoglobin Oxyhemoglobin Sodium Potassium Chloride Carbon Dioxide BUN Creatinine Glucose POC Glucose 107 H 110 H 122 H Calcium Phosphorus Magnesium ALT Alkaline Phosphatase Total Creatine Kinase CK-MB (CK-2) Rel Index Troponin T Albumin LDL Cholesterol Direct PTH Intact Salicylates Acetaminophen Crossmatch 03/27/19 03/27/19 03/28/19 11:22 18:00 05:17 WBC RBC Hgb Hct MCH MCHC RDW Lymph % (Auto) [place] % (Auto) Eos % (Auto) Lymph # [place] # Eos # Seg Neutrophils % Seg Neuts % (Manual) Lymphocytes % (Manual) Eosinophils % (Manual) Seg Neutrophils # Lymphocytes # (Manual) Eosinophils # (Manual) PT INR D-Dimer POC ABG pH POC ABG pCO2 POC ABG pO2 ABG pO2 ABG HCO3 ABG Base Excess ABG Hemoglobin Oxyhemoglobin Sodium Potassium Chloride Carbon Dioxide BUN Creatinine Glucose POC Glucose 120 H 111 H 107 H Calcium Phosphorus Magnesium ALT Alkaline Phosphatase Total Creatine Kinase CK-MB (CK-2) Rel Index Troponin T Albumin LDL Cholesterol Direct PTH Intact Salicylates Acetaminophen Crossmatch 03/28/19 03/28/19 03/29/19 12:27 18:08 05:47 WBC RBC Hgb Hct MCH MCHC RDW Lymph % (Auto) [place] % (Auto) Eos % (Auto) Lymph # [place] # Eos # Seg Neutrophils % Seg Neuts % (Manual) Lymphocytes % (Manual) Eosinophils % (Manual) Seg Neutrophils # Lymphocytes # (Manual) Eosinophils # (Manual) PT INR D-Dimer POC ABG pH POC ABG pCO2 POC ABG pO2 ABG pO2 ABG HCO3 ABG Base Excess ABG Hemoglobin Oxyhemoglobin Sodium Potassium Chloride Carbon Dioxide BUN Creatinine Glucose POC Glucose 114 H 121 H 112 H Calcium Phosphorus Magnesium ALT Alkaline Phosphatase Total Creatine Kinase CK-MB (CK-2) Rel Index Troponin T Albumin LDL Cholesterol Direct PTH Intact Salicylates Acetaminophen Crossmatch 03/29/19 03/29/19 03/30/19 12:14 18:08 00:31 WBC RBC Hgb Hct MCH MCHC RDW Lymph % (Auto) [place] % (Auto) Eos % (Auto) Lymph # [place] # Eos # Seg Neutrophils % Seg Neuts % (Manual) Lymphocytes % (Manual) Eosinophils % (Manual) Seg Neutrophils # Lymphocytes # (Manual) Eosinophils # (Manual) PT INR D-Dimer POC ABG pH POC ABG pCO2 POC ABG pO2 ABG pO2 ABG HCO3 ABG Base Excess ABG Hemoglobin Oxyhemoglobin Sodium Potassium Chloride Carbon Dioxide BUN Creatinine Glucose POC Glucose 117 H 140 H 114 H Calcium Phosphorus Magnesium ALT Alkaline Phosphatase Total Creatine Kinase CK-MB (CK-2) Rel Index Troponin T Albumin LDL Cholesterol Direct PTH Intact Salicylates Acetaminophen Crossmatch 03/30/19 03/30/19 03/30/19 10:13 10:13 23:53 WBC RBC 2.81 L Hgb 7.7 L Hct 24.3 L MCH 27 L MCHC RDW 19.0 H Lymph % (Auto) 12.2 L [place] % (Auto) Eos % (Auto) 7.9 H Lymph # 1.0 L [place] # Eos # 0.6 H Seg Neutrophils % 72.3 H Seg Neuts % (Manual) Lymphocytes % (Manual) Eosinophils % (Manual) Seg Neutrophils # Lymphocytes # (Manual) Eosinophils # (Manual) PT INR D-Dimer POC ABG pH POC ABG pCO2 POC ABG pO2 ABG pO2 ABG HCO3 ABG Base Excess ABG Hemoglobin Oxyhemoglobin Sodium Potassium 5.1 H Chloride 96.5 L Carbon Dioxide BUN 73 H Creatinine 3.9 H D Glucose POC Glucose 114 H Calcium 10.3 H Phosphorus 6.30 H Magnesium 2.70 H ALT Alkaline Phosphatase 185 H Total Creatine Kinase CK-MB (CK-2) Rel Index Troponin T Albumin 2.6 L LDL Cholesterol Direct PTH Intact Salicylates Acetaminophen Crossmatch 03/31/19 05:45 WBC RBC Hgb Hct MCH MCHC RDW Lymph % (Auto) [place] % (Auto) Eos % (Auto) Lymph # [place] # Eos # Seg Neutrophils % Seg Neuts % (Manual) Lymphocytes % (Manual) Eosinophils % (Manual) Seg Neutrophils # Lymphocytes # (Manual) Eosinophils # (Manual) PT INR D-Dimer POC ABG pH POC ABG pCO2 POC ABG pO2 ABG pO2 ABG HCO3 ABG Base Excess ABG Hemoglobin Oxyhemoglobin Sodium Potassium Chloride Carbon Dioxide BUN Creatinine Glucose POC Glucose 108 H Calcium Phosphorus Magnesium ALT Alkaline Phosphatase Total Creatine Kinase CK-MB (CK-2) Rel Index Troponin T Albumin LDL Cholesterol Direct PTH Intact Salicylates Acetaminophen Crossmatch
--- NOTE | 2019-03-31 09:32 | Progress Note ---
Subjective Principal diagnosis: respiratory failure Interval history: Patient was seen today for follow-up of multiple renal related issues On hemodialysis, MWF Events of 24 hours vitals labs intake output medications were reviewed Past medical history: Reviewed Family history: Reviewed Social history: Reviewed Allergies: Reviewed Physical examination: Vitals: Reviewed HEENT:mild pallor or icterus oral mucosa moist Neck: Supple no JVD no thyromegaly Chest: Bilateral clear to auscultation anteriorly Heart: Regular rate and rhythm S1-S2 heard no S3-S4 Abdomen: Soft nontender no voluntary guarding rigidity rebound Extremity: Dry skin less than 1+ peripheral edema Psychiatric: No evidence of agitation and aggression noted Overall patient appears to be ill appearing Labs and x-rays: Reviewed from today Assessment and plan ESRD: Patient will continue with hemodialysis treatment Saturday, Saturday and Saturday Ultrafiltration only as tolerated on hemodialysis Monitor dialysis related labs Prognosis long-term very poor due to dialysis and multiple comorbidities Mortality risk, in my opinion shock and long-term both are high Multiple other comorbidities including pneumonia, status post tracheotomy, cardiomyopathy ejection fraction 35-40%, history of CVA, atrial fibrillation, decubitus ulceration Continue with supportive care We'll continue to follow and make recommendation for renal standpoint Objective - Vital Signs Vital signs: Vital Signs - 12hr 03/30/19 03/30/19 03/30/19 22:00 23:00 23:03 Temperature Pulse Rate 89 90 91 H Pulse Rate [ Anterior Bilateral Throughout] Pulse Rate [ From Monitor] Respiratory 17 17 17 Rate Respiratory Rate [Anterior Bilateral Throughout] Blood Pressure 106/56 106/61 106/61 O2 Sat by Pulse 100 100 100 Oximetry O2 Sat by Pulse Oximetry [ Assessment] 03/31/19 03/31/19 03/31/19 00:00 01:01 01:20 Temperature 98.4 F Pulse Rate 93 H 91 H Pulse Rate [ Anterior Bilateral Throughout] Pulse Rate [ 98 H From Monitor] Respiratory 17 16 Rate Respiratory Rate [Anterior Bilateral Throughout] Blood Pressure 96/60 89/62 O2 Sat by Pulse 100 96 Oximetry O2 Sat by Pulse 100 Oximetry [ Assessment] 03/31/19 03/31/19 03/31/19 02:00 03:01 03:40 Temperature 98.6 F Pulse Rate 88 92 H Pulse Rate [ Anterior Bilateral Throughout] Pulse Rate [ From Monitor] Respiratory 20 22 Rate Respiratory Rate [Anterior Bilateral Throughout] Blood Pressure 103/61 107/58 O2 Sat by Pulse 98 92 Oximetry O2 Sat by Pulse Oximetry [ Assessment] 03/31/19 03/31/19 03/31/19 04:00 05:00 06:00 Temperature Pulse Rate 84 92 H 84 Pulse Rate [ Anterior Bilateral Throughout] Pulse Rate [ From Monitor] Respiratory 19 22 19 Rate Respiratory Rate [Anterior Bilateral Throughout] Blood Pressure 108/57 116/75 112/66 O2 Sat by Pulse 99 99 99 Oximetry O2 Sat by Pulse Oximetry [ Assessment] 03/31/19 03/31/19 03/31/19 07:00 07:38 07:41 Temperature Pulse Rate 86 Pulse Rate [ 95 H Anterior Bilateral Throughout] Pulse Rate [ From Monitor] Respiratory 15 Rate Respiratory 23 Rate [Anterior Bilateral Throughout] Blood Pressure 116/61 O2 Sat by Pulse 97 Oximetry O2 Sat by Pulse 100 Oximetry [ Assessment] 03/31/19 07:45 Temperature Pulse Rate Pulse Rate [ Anterior Bilateral Throughout] Pulse Rate [ From Monitor] Respiratory Rate Respiratory Rate [Anterior Bilateral Throughout] Blood Pressure O2 Sat by Pulse 88 Oximetry O2 Sat by Pulse Oximetry [ Assessment] - Lab 03/31/19 10:26 03/31/19 10:26 Most recent lab results ABG pH 7.424 pH Units (7.350-7.450) 03/19/19 04:23 ABG pCO2 48.0 mm Hg 03/19/19 04:23 ABG pO2 78.3 mm Hg (80.0-90.0) L 03/19/19 04:23 ABG HCO3 30.7 mmol/L (20.0-26.0) H 03/19/19 04:23 ABG O2 Saturation 97.0 % (95.0-99.0) 03/19/19 04:23 Calcium 10.3 mg/dL (8.4-10.2) H 03/30/19 10:13 Phosphorus 6.30 mg/dL (2.5-4.5) H 03/30/19 10:13 Magnesium 2.70 mg/dL (1.7-2.3) H 03/30/19 10:13 Medications & Allergies - Medications Allergies/Adverse Reactions: Allergies haloperidol [From Haldol] Adverse Reaction (Verified 03/13/18 12:10) Unknown haloperidol lactate [From Haldol] Adverse Reaction (Verified 03/13/18 12:10) Unknown Home Medications: Home Medications Medication Instructions Recorded Confirmed Last Taken Type risperiDONE [RisperDAL] 1 mg PO QAM 03/13/18 02/21/19 Unknown History Sertraline [Zoloft] 100 mg PO QDAY 08/26/18 02/21/19 Unknown History Polyethylene Glycol 3350 [Miralax 17 gm PO QDAY #30 packet 11/05/18 02/21/19 Unknown Rx 3350] Aspirin EC [Halfprin EC] 81 mg PO DAILY #30 11/19/18 02/21/19 Unknown Rx Docusate Sodium [Colace CAP] 100 mg PO BID #60 11/19/18 02/21/19 Unknown Rx Folic Acid [Folvite] 1 mg PO DAILY #30 tab 11/19/18 02/21/19 Unknown Rx Famotidine [Pepcid] 20 mg PO DAILY tablet 12/08/18 02/21/19 Unknown Rx Gabapentin [Neurontin] 100 mg PO QHS capsule 12/08/18 02/21/19 Unknown Rx Metoprolol [Lopressor TAB] 50 mg PO BID 30 Days tablet 12/08/18 02/21/19 Unknown Rx Sevelamer Carbonate [Renvela] 800 mg PO TIDWM tablet 12/08/18 02/21/19 Unknown Rx hydrALAZINE [Apresoline TAB] 100 mg PO Q8HR #120 tablet 12/08/18 02/21/19 Unknown Rx Acetaminophen [Acetaminophen TAB] 650 mg PO Q12H PRN 12/15/18 02/21/19 Unknown History Glucagon,Human Recombinant 1 mg IJ Q15MIN PRN 12/15/18 02/21/19 Unknown History [Glucagon Emergency Kit] Insulin Aspart [NovoLOG 100 See Protocol SQ QWEEK 12/15/18 02/21/19 Unknown History UNITS/ML VIAL] Active Medications: Generic Name Dose Route Start Last Admin Trade Name Freq PRN Reason Stop Dose Admin Albuterol/Ipratropium 1 ampul 02/24/19 20:00 03/31/19 07:38 Duoneb *Not For Prn Use* IH 1 ampul TIDRT SANCHEZ Administration Lipase/Protease/Amylase 1 each 03/05/19 14:04 Pancrejewel Barrientos 10,500 Unit FEEDTUBE PRN PRN For Clogged Feeding Tube Epoetin Solitario 20,000 unit 03/24/19 11:17 03/30/19 16:15 Procrit IV 20,000 unit UMA PRN Administration hemodialysis Famotidine 20 mg 02/23/19 10:00 03/30/19 10:17 Pepcid PO 20 mg DAILY SANCHEZ Administration Heparin Sodium (Porcine) 5,000 unit 03/04/19 22:00 03/30/19 21:42 Heparin SUB-Q 5,000 unit Q12HR SANCHEZ Administration Hydrophilic Ointment 1 applic 02/21/19 18:24 03/05/19 08:16 Vaseline Lip Therapy TP 1 applic Q2HR PRN Administration Dry Lips Sodium Chloride 100 mls @ 999 mls/hr 02/26/19 09:00 Nacl 0.9% IV UMA PRN Hypotension Insulin Human Regular 0 units 02/26/19 12:00 03/31/19 06:34 Humulin R SUB-Q Not Given Q6HR [facility] Protocol Metoprolol Tartrate 2.5 mg 02/28/19 12:06 03/15/19 05:15 Lopressor IV 2.5 mg Q4HR PRN Administration Tachycardia Multi-Ingred Cream/Lotion/Oil/Oint 1 applic 02/21/19 18:24 03/29/19 21:40 Artificial Tears Ophth Oint OU 1 applic Q4HR PRN Administration Dry Eye(s) Risperidone 1 mg 02/25/19 13:00 03/30/19 10:17 Risperdal PO 1 mg DAILY SANCHEZ Administration Scopolamine 1 each 03/13/19 04:00 03/31/19 03:31 Transderm-Scop TD 1 each Q3D SANCHEZ Administration Sertraline HCl 100 mg 02/25/19 13:00 03/30/19 10:17 Zoloft PO 100 mg DAILY SANCHEZ Administration Simple Syrup 15 ml 03/05/19 14:04 Simple Syrup FEEDTUBE PRN PRN Hypoglycemia Simple Syrup 30 ml 03/05/19 14:04 Simple Syrup FEEDTUBE PRN PRN Hypoglycemia Sodium Bicarbonate 325 mg 03/05/19 14:04 Sodium Bicarbonate FEEDTUBE PRN PRN For Clogged Feeding Tube Tramadol HCl 50 mg 03/05/19 10:08 03/28/19 21:38 Ultram PO 50 mg Q6H PRN Administration Pain, Moderate (4-6)
[2019-03-31] MEDS: HEPARIN 5,000 UNIT/1 ML VIAL SUB-Q SCH ×2 (10:15→21:03)
[2019-03-31] MEDS: risperiDONE 1 MG TAB PO SCH (10:15)
[2019-03-31] MEDS: FAMOTIDINE 20 MG TAB PO SCH (10:15)
[2019-03-31] MEDS: SERTRALINE 100 MG TAB PO SCH (10:15)
[2019-03-31 11:14] LABS: Hematocrit 26.4 % (35.5-45.6); Hemoglobin 8.2 gm/dl (11.8-15.2); Mean Corpuscular HGB Conc 31 % (32-34); Mean Corpuscular Volume 88 fl (84-94); Platelet Count 361 K/mm3 (140-440); Red Blood Count 3.01 M/mm3 (3.65-5.03); Red Cell Distribution Width 20.3 % (13.2-15.2)
[2019-03-31 11:15] LABS: Basophils # (Auto) 0.1 K/mm3 (0.0-0.1); Basophils % (Auto) 0.9 % (0.0-1.8); Eosinophils # (Auto) 0.6 K/mm3 (0.0-0.4); Eosinophils % (Auto) 7.2 % (0.0-4.3); Lymphocytes # (Auto) 1.1 K/mm3 (1.2-5.4); Lymphocytes % (Auto) 13.3 % (13.4-35.0); Monocytes # (Auto) 0.5 K/mm3 (0.0-0.8); Monocytes % (Auto) 6.5 % (0.0-7.3)
[2019-03-31 11:17] LABS: Calcium 10.3 mg/dL (8.4-10.2)
--- NOTE | 2019-03-31 17:23 | Progress Note ---
Assessment and Plan Assessment and plan: Patient is 63-year-old -[place] male patient from [facility] with multiple co-morbidities including blindness, CVA, CHF, PPM/ICD, loop recorder since 2012 that is MRI compatible, IDDM type 2, sepsis left foot ulcer, afib, ESRD with complications on HD TTS, hypertension, AOCD and GERD who presented to the ED with hypotensive after intubation in the emergency room. diagnosed with fluid overload, pleural effusion. Patient has had recurrent admission in the hospital for similar reason and was recently discharged from the hospital following treatment of Severe Sepsis due to Necrotizing Unstagable sacral decubitus ulcer with ostemomylitis, has received multiple courses of broad spectrum abx. Acute hypoxic respiratory failure, status post intubation and ventilatory support, now off vent, on T-piece Acute respiratory failure on mechanical ventilator >96 hrs Extubated ; history of tracheostomy on T piece Current management , nebulizers, Currently on trach/peg placed on 03/03. Now off vent, cont oxygen supplement, improving, on t piece, nebulizers, pulmonary critical following acute on chronic systolic CHF/ Acute pulmonary edema, HD per schedule Dilated CMP, EF 35-40% Continue diuresis, supportive care Acute metabolic encephalopathy, resolved, has baseline Dementia. --ESRD on hemodialysis per schedule nephrology following --Bilateral pleural effusions improved with HD --Permanent atrial fibrillation and flutter and hypercoaguable state Not on anticoagulation because of anemia thrombocytopenia rate control meds optimized --Diabetes mellitus type 2 Accu-Chek sliding scale coverage Insulin as needed --NSTEMI type 2 , Cardiology following --Schizophrenia:stable --Legally blind, supportive care --hypertension, Monitor BP,'s adjust medications as needed --Hypokalemia; corrected --Pulmonary hypertension; continue current management --Dysphagia s/p PEG tube; PEG tubes per protocol --Sacral decub ulcer; Wound care --Severe malnutrition /hypoalbuminemia with FTT: 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, assistance representative following PEG placed on 01/02/19 --Multiple decubiti, different stages , s/ p colostomy Left 5th finger, stage 4 pressure ulcer Left heel, deep tissue injury Sacrum, stage 4 pressure ulcer POA Continue wound care --History of sacral osteomyelitis and LE ulcers Completed Antibiotics, contact isolation for ESBL Klebsiella pneumonia on wound culture 01/02/19 --Anemia of chronic disease s/p 1 unit of prbc , stable --RUL atelectasis, probably mucous plugging --DVT prophylaxis; Lovenox --Full code status --Very poor prognosis Dispo; Awaiting SNF placement , difficult to place ,unable to find any NH to take patient. inpatient hospice was recommended, but family is not agreeable at this time. family meeting and ethic consult as needed History Interval history: Patient was seen and evaluated this morning, Patient is on PEG and trach. Hospitalist Physical - Physical exam Narrative exam: Patient is on trach and PEG The patient appeared well nourished and normally developed. Vital signs as documented. Head exam is unremarkable. No scleral icterus . Neck is without jugular venous distension, thyromegaly, or carotid bruits. Lungs are clear to auscultation. Cardiac exam reveals regular rate and Rhythm. First and second heart sounds normal. No murmurs, rubs or gallops. Abdominal exam reveals PEG tube in place, colostomy bag in place. Extremities are nonedematous and both femoral and pedal pulses are normal. FOOD PROCESSOR: Patient follow simple commands. - Constitutional Vitals: Temp Pulse Resp BP Pulse Ox 98.9 F 105 H 23 99/63 97 03/31/19 12:00 03/31/19 16:01 03/31/19 16:01 03/31/19 16:03/31/19 16:01 General appearance: Present: no acute distress, well-nourished, other (tr acheostomy on T piece) Results - Labs CBC & Chem 7: 03/31/19 10:26 03/31/19 10:26 Labs: Laboratory Last Values WBC 8.3 K/mm3 (4.5-11.0) 03/31/19 10: RBC 3.01 M/mm3 (3.65-5.03) L 03/31/19 10: Hgb 8.2 gm/dl (11.8-15.2) L 03/31/19 10: Hct 26.4 % (35.5-45.6) L 03/31/19 10: MCV 88 fl (84-94) 03/31/19 10: MCH 27 pg (28-32) L 03/31/19 10: MCHC 31 % (32-34) L 03/31/19 10: RDW 20.3 % (13.2-15.2) H 03/31/19 10:26 Plt Count 361 K/mm3 (140-440) 03/31/19 10: Lymph % (Auto) 13.3 % (13.4-35.0) L 03/31/19 10: Moody % (Auto) 6.5 % (0.0-7.3) 03/31/19 10: Eos % (Auto) 7.2 % (0.0-4.3) H 03/31/19 10: Baso % (Auto) 0.9 % (0.0-1.8) 03/31/19 10: Lymph # 1.1 K/mm3 (1.2-5.4) L 03/31/19 10: Moody # 0.5 K/mm3 (0.0-0.8) 03/31/19 10: Eos # 0.6 K/mm3 (0.0-0.4) H 03/31/19 10: Baso # 0.1 K/mm3 (0.0-0.1) 03/31/19 10: Add Manual Diff Complete 03/21/19 06:30 Total Counted 100 03/21/19 06:30 Seg Neutrophils % 72.1 % (40.0-70.0) H 03/31/19 10: Seg Neuts % (Manual) 81.0 % (40.0-70.0) H 03/21/19 06:30 0 % 03/21/19 06:30 8.0 % (13.4-35.0) L 03/21/19 06:30 Reactive Lymphs % (Man) 0 % 03/21/19 06:30 1.0 % (0.0-7.3) 03/21/19 06:30 8.0 % (0.0-4.3) H 03/21/19 06:30 1.0 % (0.0-1.8) 03/21/19 06:30 1.0 % 03/21/19 06:30 0 % 03/21/19 06:30 0 % 03/21/19 06:30 0 % 03/21/19 06:30 Nucleated RBC % Not Reportable 03/21/19 06:30 Seg Neutrophils # 6.0 K/mm3 (1.8-7.7) 03/31/19 10:26 Seg Neutrophils # Man 6.7 K/mm3 (1.8-7.7) 03/21/19 06:30 Band Neutrophils # 0.0 K/mm3 03/21/19 06:30 0.7 K/mm3 (1.2-5.4) L 03/21/19 06:30 Abs React Lymphs (Man) 0.0 K/mm3 03/21/19 06:30 0.1 K/mm3 (0.0-0.8) 03/21/19 06:30 0.7 K/mm3 (0.0-0.4) H 03/21/19 06:30 0.1 K/mm3 (0.0-0.1) 03/21/19 06:30 0.1 K/mm3 03/21/19 06:30 0.0 K/mm3 03/21/19 06:30 0.0 K/mm3 03/21/19 06:30 Blast Cells # 0.0 K/mm3 03/21/19 06:30 WBC Morphology Not Reportable 03/21/19 06:30 Hypersegmented Neuts Not Reportable 03/21/19 06:30 Hyposegmented Neuts Not Reportable 03/21/19 06:30 Hypogranular Neuts Not Reportable 03/21/19 06:30 Not Reportable 03/21/19 06:30 Not Reportable 03/21/19 06:30 Not Reportable 03/21/19 06:30 Not Reportable 03/21/19 06:30 Not Reportable 03/21/19 06:30 Not Reportable 03/21/19 06:30 Consistent w auto 03/21/19 06:30 Not Reportable 03/21/19 06:30 Plt Clumps, EDTA Not Reportable 03/21/19 06:30 Not Reportable 03/21/19 06:30 Not Reportable 03/21/19 06:30 Not Reportable 03/21/19 06:30 Plt Morphology Comment Not Reportable 03/21/19 06:30 RBC Morphology Not Reportable 03/21/19 06:30 Dimorphic RBCs Not Reportable 03/21/19 06:30 Not Reportable 03/21/19 06:30 Few 03/21/19 06:30 Few 03/21/19 06:30 Few 03/21/19 06:30 Not Reportable 03/21/19 06:30 Not Reportable 03/21/19 06:30 Not Reportable 03/21/19 06:30 Not Reportable 03/21/19 06:30 Not Reportable 03/21/19 06:30 1+ 03/21/19 06:30 Not Reportable 03/21/19 06:30 Few 03/21/19 06:30 Not Reportable 03/21/19 06:30 Not Reportable 03/21/19 06:30 Not Reportable 03/21/19 06:30 Not Reportable 03/21/19 06:30 Not Reportable 03/21/19 06:30 Not Reportable 03/21/19 06:30 Not Reportable 03/21/19 06:30 Acanthocytes (Spur) Not Reportable 03/21/19 06:30 Rouleaux Not Reportable 03/21/19 06:30 Not Reportable 03/21/19 06:30 Not Reportable 03/21/19 06:30 Not Reportable 03/21/19 06:30 Not Reportable 03/21/19 06:30 Hem Pathologist Commnt No 03/21/19 06:30 PT 16.3 Sec. (12.2-14.9) H 03/01/19 09:39 INR 1.35 (0.87-1.13) H 03/01/19 09:39 APTT 33.7 Sec. (24.2-36.6) 02/21/19 18:30 2987.82 ng/mlDDU (0-234) H 02/22/19 05:54 POC ABG pH 7.510 (7.35-7.45) H 03/18/19 06:38 ABG pH 7.424 pH Units (7.350-7.450) 03/19/19 04:23 POC ABG pCO2 38.9 (35-45) 03/18/19 06:38 ABG pCO2 48.0 mm Hg 03/19/19 04:23 POC ABG pO2 164 (80-105) H 03/18/19 06:38 ABG pO2 78.3 mm Hg (80.0-90.0) L 03/19/19 04:23 POC ABG HCO3 31.0 (22-26 mml/L) 03/18/19 06:38 ABG HCO3 30.7 mmol/L (20.0-26.0) H 03/19/19 04:23 POC ABG Total CO2 32 (23-27mmol/L) 03/18/19 06:38 POC ABG O2 Sat 100 03/18/19 06:38 ABG O2 Saturation 97.0 % (95.0-99.0) 03/19/19 04:23 ABG O2 Content 7.9 (0.0-44) 03/19/19 04:23 POC ABG Base Excess 8 ((-2) - (+3)mmol/L) 03/18/19 06:38 ABG Base Excess 5.8 mmol/L (-2.0-3.0) H 03/19/19 04:23 ABG Hemoglobin 5.8 gm/dl (14.0-18.0) L 03/19/19 04:23 ABG Carboxyhemoglobin 2.0 % (0.0-5.0) 03/19/19 04:23 ABG Methemoglobin 0.4 % (0.0-1.5) 03/19/19 04:23 94.6 % (95.0-99.0) L 03/19/19 04:23 35 % 03/19/19 04:23 Sodium 143 mmol/L (137-145) 03/31/19 10:26 Potassium 4.1 mmol/L (3.6-5.0) 03/31/19 10:26 Chloride 96.9 mmol/L (98-107) L 03/31/19 10:26 Carbon Dioxide 33 mmol/L (22-30) H 03/31/19 10:26 17 mmol/L 03/31/19 10:26 BUN 37 mg/dL (9-20) H 03/31/19 10:26 2.4 mg/dL (0.8-1.5) H 03/31/19 10:26 Estimated GFR 33 ml/min 03/31/19 10:26 15 % 03/31/19 10:26 Glucose 86 mg/dL (75-100) 03/31/19 10:26 POC Glucose 108 (70-105) H 03/31/19 05:45 Lactic Acid 1.00 mmol/L (0.7-2.0) 02/21/19 20:58 Calcium 10.3 mg/dL (8.4-10.2) H 03/31/19 10:26 Phosphorus 4.30 mg/dL (2.5-4.5) D 03/31/19 10:26 Magnesium 2.70 mg/dL (1.7-2.3) H 03/30/19 10:13 0.20 mg/dL (0.1-1.2) 03/30/19 10:13 AST 16 units/L (5-40) 03/30/19 10:13 ALT 11 units/L (7-56) 03/30/19 10:13 185 units/L (35-129) H 03/30/19 10:13 28.0 umol/L (25-60) 02/21/19 20:04 64 units/L (55-170) 02/22/19 03:42 CK-MB (CK-2) 3.7 ng/mL (0.0-4.0) 02/22/19 03:42 CK-MB (CK-2) Rel Index 5.7 (0-4) H 02/22/19 03:42 0.193 ng/mL (0.00-0.029) H* 02/22/19 03:42 6.9 g/dL (6.3-8.2) 03/30/19 10:13 2.6 g/dL (3.9-5) L 03/30/19 10:13 0.6 % 03/30/19 10:13 Triglycerides 51 mg/dL (2-149) 02/21/19 18:30 Cholesterol 82 mg/dL (50-199) 02/21/19 18:30 36 mg/dL (50-130) L 02/21/19 18:30 40 mg/dL (40-59) 02/21/19 18:30 2.05 % 02/21/19 18:30 TSH 2.760 mlU/mL (0.270-4.200) 02/21/19 20:04 PTH Intact 267.6 pg/mL (15-65) H 03/02/19 05:15 Salicylates < 0.3 mg/dL (2.8-20.0) L 02/21/19 20:04 Acetaminophen < 5.0 ug/mL (10.0-30.0) L 02/21/19 20:04 Hepatitis A IgM Ab Non-reactive (NonReactive) 02/23/19 11:20 Hep Bs Antigen Non-reactive (Negative) 02/23/19 11:20 Hep B Core IgM Ab Non-reactive (NonReactive) 02/23/19 11:20 Non-reactive (NonReactive) 02/23/19 11:20 Blood Type O POSITIVE 03/22/19 08:48 Antibody Screen Negative 03/22/19 08:48 Crossmatch See Detail 03/22/19 08:48 Active Medications - Current Medications Current Medications: Generic Name Dose Route Start Last Admin Trade Name Freq PRN Reason Stop Dose Admin Albuterol/Ipratropium 1 ampul 02/24/19 20:00 03/31/19 14:13 Duoneb *Not For Prn Use* IH 1 ampul TIDRT SANCHEZ Administration Lipase/Protease/Amylase 1 each 03/05/19 14:04 Pancrejewel Barrientos 10,500 Unit FEEDTUBE PRN PRN For Clogged Feeding Tube Epoetin Solitario 20,000 unit 03/24/19 11:17 03/30/19 16:15 Procrit IV 20,000 unit UMA PRN Administration hemodialysis Famotidine 20 mg 02/23/19 10:00 03/31/19 10:15 Pepcid PO 20 mg DAILY SANCHEZ Administration Heparin Sodium (Porcine) 5,000 unit 03/04/19 22:00 03/31/19 10:15 Heparin SUB-Q 5,000 unit Q12HR SANCHEZ Administration Hydrophilic Ointment 1 applic 02/21/19 18:24 03/05/19 08:16 Vaseline Lip Therapy TP 1 applic Q2HR PRN Administration Dry Lips Sodium Chloride 100 mls @ 999 mls/hr 02/26/19 09:00 Nacl 0.9% IV UMA PRN Hypotension Insulin Human Regular 0 units 02/26/19 12:00 03/31/19 12:30 Humulin R SUB-Q Not Given Q6HR [facility] Protocol Metoprolol Tartrate 2.5 mg 02/28/19 12:06 03/15/19 05:15 Lopressor IV 2.5 mg Q4HR PRN Administration Tachycardia Multi-Ingred Cream/Lotion/Oil/Oint 1 applic 02/21/19 18:24 03/29/19 21:40 Artificial Tears Ophth Oint OU 1 applic Q4HR PRN Administration Dry Eye(s) Risperidone 1 mg 02/25/19 13:00 03/31/19 10:15 Risperdal PO 1 mg DAILY SANCHEZ Administration Scopolamine 1 each 03/13/19 04:00 03/31/19 03:31 Transderm-Scop TD 1 each Q3D SANCHEZ Administration Sertraline HCl 100 mg 02/25/19 13:00 03/31/19 10:15 Zoloft PO 100 mg DAILY SANCHEZ Administration Simple Syrup 15 ml 03/05/19 14:04 Simple Syrup FEEDTUBE PRN PRN Hypoglycemia Simple Syrup 30 ml 03/05/19 14:04 Simple Syrup FEEDTUBE PRN PRN Hypoglycemia Sodium Bicarbonate 325 mg 03/05/19 14:04 Sodium Bicarbonate FEEDTUBE PRN PRN For Clogged Feeding Tube Tramadol HCl 50 mg 03/05/19 10:08 03/28/19 21:38 Ultram PO 50 mg Q6H PRN Administration Pain, Moderate (4-6) Nutrition/Malnutrition Assess - Dietary Evaluation Nutrition/Malnutrition Findings: Nutrition Notes Start: 02/22/19 12:51 Freq: Status: Active Protocol: Document 03/28/19 11:19 LM (Rec: 03/28/19 11:24 LM [email or web address]) Nutrition Notes Labs/Tests Reviewed Pertinent Medications Reviewed Height 5 ft 10 in Weight 74.7 kg [place] Body Weight (kg) 75.45 BMI 23.6 Subjective/Other Information Nepro running at 50 ml/hr at time of visit. Pt is tolerating TF. Percent of energy/protein needs met: 96%/100% Burn Absent Trauma Absent #2 Nutrition Diagnosis Increased nutrient needs ( specify in comment below) Diagnosis Progress(for reassessment Continues documentation) #1 Nutrition Diagnosis Inadequate oral intake Diagnosis Progress(for reassessment Continues documentation) Is patient on ventilator? No Is Patient Ambulatory and/or Out of Bed No [facility] 1857.144 Kcal/Kg value to use for calculation 30 Approximate Energy Requirements Using 2241 kcal/Kg Calculation Used for Recommendations Kcal/kg Additional Notes Protein Needs: 90-112g (1.2-1. 5g/kg) Fluid Needs: 1-1.5 L/day Nutrition Intervention Change Diet Order: Continue TF Nutrition Support: Nepro with Carbsteady 1.8 at 50 ml/hr Flush 200 ml q4hr Kcal 2,160 Protein (gm) 97 Fluid (mL) 872 Add Supplement/Snack (indicate name/kcal Abhilash BID /protein ) Provides kCal: 190 Provides Protein (gm) 5 Goal #1 TF tolerance Goal #2 Continue to meet at least 80% of calorie and protein needs via TF Anticipated Discharge Needs: TF Follow-Up By: 04/03/19 Additional Comments F/U for new TF rate/tolerance
[2019-04-01 00:08] LABS: Hepatitis B Surface Antigen Non-Reactive (Negative); Hepatitis C Virus Antibody Non-Reactive (NonReactive)
[2019-04-01] MEDS: INSULIN REGULAR, HUMAN 100 UNITS/1 ML SUB-Q SCH ×4 (05:41→18:55)
[2019-04-01] MEDS: traMADol 50 MG TAB PO PRN (05:42)
[2019-04-01] MEDS: IPRATROPIUM/ALBUTEROL SULFATE 3 ML AMPUL.NEB IH SCH ×3 (09:00→19:57)
[2019-04-01] MEDS: EPOETIN ALFA 20,000 UNIT/1 ML INJ IV PRN (09:51)
[2019-04-01] MEDS: HEPARIN 5,000 UNIT/1 ML VIAL SUB-Q SCH ×2 (11:24→22:34)
[2019-04-01] MEDS: FAMOTIDINE 20 MG TAB PO SCH (11:25)
[2019-04-01] MEDS: SERTRALINE 100 MG TAB PO SCH (11:25)
[2019-04-01] MEDS: risperiDONE 1 MG TAB PO SCH (11:25)
--- NOTE | 2019-04-01 11:34 | Progress Note ---
Assessment and Plan 63 y/o male with multiple medical issues admitted with altered mental status, acute respiratory failure requiring mechanical ventilation No new recommendations for today. Please see below. 1. Finished therapy for Acinetobacter. 2. Continue T-piece 3. HD per renal 4. Awaiting placement. Subjective Date of service: 04/01/19 Principal diagnosis: respiratory failure Interval history: No acute events. Pulm status remains unchanged. Objective Vital Signs - 12hr 04/01/19 04/01/19 04/01/19 00:00 01:01 02:00 Temperature 98.0 F Pulse Rate 89 110 H 94 H Pulse Rate [ Anterior Bilateral Throughout] Pulse Rate [ 96 H From Monitor] Respiratory 17 23 20 Rate Respiratory Rate [Anterior Bilateral Throughout] Blood Pressure 103/58 68/23 105/56 O2 Sat by Pulse 100 78 L 99 Oximetry O2 Sat by Pulse Oximetry [ Anterior Bilateral Throughout] O2 Sat by Pulse 100 Oximetry [ Assessment] 04/01/19 04/01/19 04/01/19 03:00 04:00 05:01 Temperature 98.5 F Pulse Rate 97 H 90 95 H Pulse Rate [ Anterior Bilateral Throughout] Pulse Rate [ 96 H From Monitor] Respiratory 18 23 23 Rate Respiratory Rate [Anterior Bilateral Throughout] Blood Pressure 98/55 95/53 110/64 O2 Sat by Pulse 99 97 92 Oximetry O2 Sat by Pulse Oximetry [ Anterior Bilateral Throughout] O2 Sat by Pulse Oximetry [ Assessment] 04/01/19 04/01/19 04/01/19 05:36 05:42 06:00 Temperature 98.3 F Pulse Rate 93 H Pulse Rate [ Anterior Bilateral Throughout] Pulse Rate [ From Monitor] Respiratory 16 14 Rate Respiratory Rate [Anterior Bilateral Throughout] Blood Pressure 117/57 O2 Sat by Pulse 100 Oximetry O2 Sat by Pulse Oximetry [ Anterior Bilateral Throughout] O2 Sat by Pulse Oximetry [ Assessment] 04/01/19 04/01/19 04/01/19 07:00 07:45 07:50 Temperature 97.9 F Pulse Rate 92 H 110 H 110 H Pulse Rate [ Anterior Bilateral Throughout] Pulse Rate [ From Monitor] Respiratory 24 23 Rate Respiratory Rate [Anterior Bilateral Throughout] Blood Pressure 114/72 117/71 117/71 O2 Sat by Pulse 96 Oximetry O2 Sat by Pulse 92 Oximetry [ Anterior Bilateral Throughout] O2 Sat by Pulse Oximetry [ Assessment] 04/01/19 04/01/19 04/01/19 08:00 08:01 08:15 Temperature 97.9 F Pulse Rate 96 H 96 H 110 H Pulse Rate [ 106 H Anterior Bilateral Throughout] Pulse Rate [ 98 H From Monitor] Respiratory 20 40 H Rate Respiratory 31 H Rate [Anterior Bilateral Throughout] Blood Pressure 114/70 117/60 121/62 O2 Sat by Pulse 98 55 L Oximetry O2 Sat by Pulse Oximetry [ Anterior Bilateral Throughout] O2 Sat by Pulse Oximetry [ Assessment] 04/01/19 04/01/19 04/01/19 08:30 08:45 08:58 Temperature Pulse Rate 109 H 109 H Pulse Rate [ Anterior Bilateral Throughout] Pulse Rate [ From Monitor] Respiratory Rate Respiratory Rate [Anterior Bilateral Throughout] Blood Pressure 117/70 125/86 O2 Sat by Pulse Oximetry O2 Sat by Pulse Oximetry [ Anterior Bilateral Throughout] O2 Sat by Pulse 100 Oximetry [ Assessment] 04/01/19 04/01/19 04/01/19 09:00 09:01 09:15 Temperature Pulse Rate 104 H 111 H 112 H Pulse Rate [ Anterior Bilateral Throughout] Pulse Rate [ From Monitor] Respiratory 24 Rate Respiratory Rate [Anterior Bilateral Throughout] Blood Pressure 99/77 99/77 104/71 O2 Sat by Pulse 97 Oximetry O2 Sat by Pulse Oximetry [ Anterior Bilateral Throughout] O2 Sat by Pulse Oximetry [ Assessment] 04/01/19 04/01/19 04/01/19 09:45 10:00 10:15 Temperature Pulse Rate 109 H 109 H 106 H Pulse Rate [ Anterior Bilateral Throughout] Pulse Rate [ From Monitor] Respiratory Rate Respiratory Rate [Anterior Bilateral Throughout] Blood Pressure 95/64 95/64 98/59 O2 Sat by Pulse 98 Oximetry O2 Sat by Pulse Oximetry [ Anterior Bilateral Throughout] O2 Sat by Pulse Oximetry [ Assessment] 04/01/19 04/01/19 04/01/19 10:30 10:45 11:00 Temperature Pulse Rate 105 H 91 H 95 H Pulse Rate [ Anterior Bilateral Throughout] Pulse Rate [ From Monitor] Respiratory Rate Respiratory Rate [Anterior Bilateral Throughout] Blood Pressure 117/58 101/81 109/66 O2 Sat by Pulse Oximetry O2 Sat by Pulse Oximetry [ Anterior Bilateral Throughout] O2 Sat by Pulse Oximetry [ Assessment] 04/01/19 11:01 Temperature Pulse Rate 100 H Pulse Rate [ Anterior Bilateral Throughout] Pulse Rate [ From Monitor] Respiratory Rate Respiratory Rate [Anterior Bilateral Throughout] Blood Pressure 101/81 O2 Sat by Pulse 100 Oximetry O2 Sat by Pulse Oximetry [ Anterior Bilateral Throughout] O2 Sat by Pulse Oximetry [ Assessment] Constitutional: no acute distress, alert Eyes: non-icteric ENT: oropharynx moist Neck: supple Effort: normal Ascultation: Bilateral: diminished breath sounds, other (coarse BS bilaterally) Percussion: Bilateral: not dull Cardiovascular: other (tachy, RR; no mrg) Gastrointestinal: normoactive bowel sounds, soft, non-tender, non-distended, other (ostomy in place, brown stool) Extremities: no cyanosis, no edema, pink and warm Neurologic: other (mild weakness LUE, o/w nonfocal) Psychiatric: other (unable to assess) CBC and BMP: 03/31/19 10:26 03/31/19 10:26 ABG, PT/INR, D-dimer: ABG POC ABG pH 7.510 (7.35-7.45) H 03/18/19 06:38 ABG pH 7.424 pH Units (7.350-7.450) 03/19/19 04:23 POC ABG pCO2 38.9 (35-45) 03/18/19 06:38 ABG pCO2 48.0 mm Hg 03/19/19 04:23 POC ABG pO2 164 (80-105) H 03/18/19 06:38 ABG pO2 78.3 mm Hg (80.0-90.0) L 03/19/19 04:23 POC ABG HCO3 31.0 (22-26 mml/L) 03/18/19 06:38 POC ABG Total CO2 32 (23-27mmol/L) 03/18/19 06:38 POC ABG O2 Sat 100 03/18/19 06:38 ABG O2 Saturation 97.0 % (95.0-99.0) 03/19/19 04:23 PT/INR, D-dimer PT 16.3 Sec. (12.2-14.9) H 03/01/19 09:39 INR 1.35 (0.87-1.13) H 03/01/19 09:39 2987.82 ng/mlDDU (0-234) H 02/22/19 05:54 Abnormal lab findings: Abnormal Labs 02/21/19 02/21/19 02/21/19 18:30 18:30 18:30 WBC RBC 3.26 L Hgb 8.8 L Hct 29.0 L MCH 27 L MCHC 30 L RDW 19.1 H Lymph % (Auto) 6.1 L [place] % (Auto) Eos % (Auto) Lymph # 0.4 L [place] # Eos # Seg Neutrophils % 86.2 H Seg Neuts % (Manual) Lymphocytes % (Manual) Eosinophils % (Manual) Seg Neutrophils # Lymphocytes # (Manual) Eosinophils # (Manual) PT INR D-Dimer POC ABG pH POC ABG pCO2 POC ABG pO2 ABG pO2 ABG HCO3 ABG Base Excess ABG Hemoglobin Oxyhemoglobin Sodium 133 L Potassium 3.3 L Chloride 93.1 L Carbon Dioxide 33 H BUN Creatinine Glucose 161 H POC Glucose Calcium Phosphorus Magnesium ALT Alkaline Phosphatase 136 H Total Creatine Kinase 37 L CK-MB (CK-2) Rel Index Troponin T 0.192 H* Albumin 2.4 L LDL Cholesterol Direct 36 L PTH Intact Salicylates Acetaminophen Crossmatch 02/21/19 02/21/19 02/21/19 18:42 20:04 20:04 WBC RBC Hgb Hct MCH MCHC RDW Lymph % (Auto) [place] % (Auto) Eos % (Auto) Lymph # [place] # Eos # Seg Neutrophils % Seg Neuts % (Manual) Lymphocytes % (Manual) Eosinophils % (Manual) Seg Neutrophils # Lymphocytes # (Manual) Eosinophils # (Manual) PT INR D-Dimer POC ABG pH POC ABG pCO2 56.7 H POC ABG pO2 291 H ABG pO2 ABG HCO3 ABG Base Excess ABG Hemoglobin Oxyhemoglobin Sodium Potassium Chloride Carbon Dioxide BUN Creatinine Glucose POC Glucose Calcium Phosphorus Magnesium ALT Alkaline Phosphatase Total Creatine Kinase CK-MB (CK-2) Rel Index Troponin T Albumin LDL Cholesterol Direct PTH Intact Salicylates < 0.3 L Acetaminophen < 5.0 L Crossmatch 02/21/19 02/22/19 02/22/19 22:35 03:42 03:42 WBC RBC 3.20 L Hgb 8.8 L Hct 27.6 L MCH MCHC RDW 18.9 H Lymph % (Auto) 7.4 L [place] % (Auto) Eos % (Auto) Lymph # 0.7 L [place] # Eos # Seg Neutrophils % 84.7 H Seg Neuts % (Manual) Lymphocytes % (Manual) Eosinophils % (Manual) Seg Neutrophils # Lymphocytes # (Manual) Eosinophils # (Manual) PT INR D-Dimer POC ABG pH POC ABG pCO2 POC ABG pO2 ABG pO2 ABG HCO3 ABG Base Excess ABG Hemoglobin Oxyhemoglobin Sodium 134 L Potassium 2.6 L* D Chloride Carbon Dioxide BUN Creatinine Glucose POC Glucose Calcium Phosphorus Magnesium ALT Alkaline Phosphatase Total Creatine Kinase CK-MB (CK-2) Rel Index 5.2 H Troponin T 0.202 H* Albumin LDL Cholesterol Direct PTH Intact Salicylates Acetaminophen Crossmatch 02/22/19 02/22/19 02/22/19 03:42 05:54 09:04 WBC RBC Hgb Hct MCH MCHC RDW Lymph % (Auto) [place] % (Auto) Eos % (Auto) Lymph # [place] # Eos # Seg Neutrophils % Seg Neuts % (Manual) Lymphocytes % (Manual) Eosinophils % (Manual) Seg Neutrophils # Lymphocytes # (Manual) Eosinophils # (Manual) PT INR D-Dimer 2987.82 H POC ABG pH 7.451 H POC ABG pCO2 POC ABG pO2 ABG pO2 ABG HCO3 ABG Base Excess ABG Hemoglobin Oxyhemoglobin Sodium Potassium Chloride Carbon Dioxide BUN Creatinine Glucose POC Glucose Calcium Phosphorus Magnesium ALT Alkaline Phosphatase Total Creatine Kinase CK-MB (CK-2) Rel Index 5.7 H Troponin T 0.193 H* Albumin LDL Cholesterol Direct PTH Intact Salicylates Acetaminophen Crossmatch 02/22/19 02/22/19 02/23/19 10:36 23:56 00:52 WBC RBC Hgb Hct MCH MCHC RDW Lymph % (Auto) [place] % (Auto) Eos % (Auto) Lymph # [place] # Eos # Seg Neutrophils % Seg Neuts % (Manual) Lymphocytes % (Manual) Eosinophils % (Manual) Seg Neutrophils # Lymphocytes # (Manual) Eosinophils # (Manual) PT INR D-Dimer POC ABG pH POC ABG pCO2 POC ABG pO2 ABG pO2 ABG HCO3 ABG Base Excess ABG Hemoglobin Oxyhemoglobin Sodium Potassium 3.1 L Chloride Carbon Dioxide BUN Creatinine Glucose POC Glucose 58 L 111 H Calcium Phosphorus Magnesium ALT Alkaline Phosphatase Total Creatine Kinase CK-MB (CK-2) Rel Index Troponin T Albumin LDL Cholesterol Direct PTH Intact Salicylates Acetaminophen Crossmatch 02/23/19 02/23/19 02/23/19 05:00 06:35 14:26 WBC RBC Hgb Hct MCH MCHC RDW Lymph % (Auto) [place] % (Auto) Eos % (Auto) Lymph # [place] # Eos # Seg Neutrophils % Seg Neuts % (Manual) Lymphocytes % (Manual) Eosinophils % (Manual) Seg Neutrophils # Lymphocytes # (Manual) Eosinophils # (Manual) PT INR D-Dimer POC ABG pH POC ABG pCO2 POC ABG pO2 ABG pO2 ABG HCO3 ABG Base Excess ABG Hemoglobin Oxyhemoglobin Sodium 135 L Potassium 3.1 L Chloride Carbon Dioxide BUN 21 H Creatinine 2.0 H Glucose 57 L POC Glucose 64 L 62 L Calcium Phosphorus Magnesium ALT Alkaline Phosphatase Total Creatine Kinase CK-MB (CK-2) Rel Index Troponin T Albumin LDL Cholesterol Direct PTH Intact Salicylates Acetaminophen Crossmatch 02/24/19 02/24/19 02/24/19 02:11 04:12 04:55 WBC RBC 2.84 L Hgb 7.8 L Hct 24.5 L MCH MCHC RDW 19.5 H Lymph % (Auto) [place] % (Auto) Eos % (Auto) Lymph # [place] # Eos # Seg Neutrophils % Seg Neuts % (Manual) Lymphocytes % (Manual) Eosinophils % (Manual) Seg Neutrophils # Lymphocytes # (Manual) Eosinophils # (Manual) PT INR D-Dimer POC ABG pH 7.511 H POC ABG pCO2 33.9 L POC ABG pO2 62 L ABG pO2 ABG HCO3 ABG Base Excess ABG Hemoglobin Oxyhemoglobin Sodium Potassium Chloride Carbon Dioxide BUN Creatinine Glucose POC Glucose 69 L Calcium Phosphorus Magnesium ALT Alkaline Phosphatase Total Creatine Kinase CK-MB (CK-2) Rel Index Troponin T Albumin LDL Cholesterol Direct PTH Intact Salicylates Acetaminophen Crossmatch 02/24/19 02/24/19 02/25/19 04:55 05:41 04:45 WBC RBC Hgb Hct MCH MCHC RDW Lymph % (Auto) [place] % (Auto) Eos % (Auto) Lymph # [place] # Eos # Seg Neutrophils % Seg Neuts % (Manual) Lymphocytes % (Manual) Eosinophils % (Manual) Seg Neutrophils # Lymphocytes # (Manual) Eosinophils # (Manual) PT INR D-Dimer POC ABG pH 7.466 H POC ABG pCO2 POC ABG pO2 75 L ABG pO2 ABG HCO3 ABG Base Excess ABG Hemoglobin Oxyhemoglobin Sodium Potassium Chloride Carbon Dioxide BUN Creatinine 1.8 H Glucose 73 L POC Glucose 127 H Calcium Phosphorus Magnesium ALT Alkaline Phosphatase Total Creatine Kinase CK-MB (CK-2) Rel Index Troponin T Albumin LDL Cholesterol Direct PTH Intact Salicylates Acetaminophen Crossmatch 02/25/19 02/25/19 02/26/19 16:34 21:33 03:45 WBC RBC 2.96 L Hgb 8.0 L Hct 25.8 L MCH 27 L MCHC 31 L RDW 20.0 H Lymph % (Auto) [place] % (Auto) Eos % (Auto) Lymph # [place] # Eos # Seg Neutrophils % Seg Neuts % (Manual) Lymphocytes % (Manual) Eosinophils % (Manual) Seg Neutrophils # Lymphocytes # (Manual) Eosinophils # (Manual) PT INR D-Dimer POC ABG pH POC ABG pCO2 POC ABG pO2 ABG pO2 ABG HCO3 ABG Base Excess ABG Hemoglobin Oxyhemoglobin Sodium Potassium Chloride Carbon Dioxide BUN Creatinine Glucose POC Glucose 141 H 106 H Calcium Phosphorus Magnesium ALT Alkaline Phosphatase Total Creatine Kinase CK-MB (CK-2) Rel Index Troponin T Albumin LDL Cholesterol Direct PTH Intact Salicylates Acetaminophen Crossmatch 02/26/19 02/26/19 02/26/19 03:45 04:13 07:53 WBC RBC Hgb Hct MCH MCHC RDW Lymph % (Auto) [place] % (Auto) Eos % (Auto) Lymph # [place] # Eos # Seg Neutrophils % Seg Neuts % (Manual) Lymphocytes % (Manual) Eosinophils % (Manual) Seg Neutrophils # Lymphocytes # (Manual) Eosinophils # (Manual) PT INR D-Dimer POC ABG pH 7.470 H POC ABG pCO2 POC ABG pO2 ABG pO2 ABG HCO3 ABG Base Excess ABG Hemoglobin Oxyhemoglobin Sodium Potassium Chloride Carbon Dioxide BUN Creatinine 1.8 H Glucose POC Glucose 110 H Calcium Phosphorus Magnesium ALT Alkaline Phosphatase Total Creatine Kinase CK-MB (CK-2) Rel Index Troponin T Albumin LDL Cholesterol Direct PTH Intact Salicylates Acetaminophen Crossmatch 02/26/19 02/26/19 02/27/19 11:56 17:43 00:12 WBC RBC Hgb Hct MCH MCHC RDW Lymph % (Auto) [place] % (Auto) Eos % (Auto) Lymph # [place] # Eos # Seg Neutrophils % Seg Neuts % (Manual) Lymphocytes % (Manual) Eosinophils % (Manual) Seg Neutrophils # Lymphocytes # (Manual) Eosinophils # (Manual) PT INR D-Dimer POC ABG pH POC ABG pCO2 POC ABG pO2 ABG pO2 ABG HCO3 ABG Base Excess ABG Hemoglobin Oxyhemoglobin Sodium Potassium Chloride Carbon Dioxide BUN Creatinine Glucose POC Glucose 112 H 127 H 127 H Calcium Phosphorus Magnesium ALT Alkaline Phosphatase Total Creatine Kinase CK-MB (CK-2) Rel Index Troponin T Albumin LDL Cholesterol Direct PTH Intact Salicylates Acetaminophen Crossmatch 02/27/19 02/27/19 02/27/19 04:35 13:15 18:02 WBC RBC Hgb Hct MCH MCHC RDW Lymph % (Auto) [place] % (Auto) Eos % (Auto) Lymph # [place] # Eos # Seg Neutrophils % Seg Neuts % (Manual) Lymphocytes % (Manual) Eosinophils % (Manual) Seg Neutrophils # Lymphocytes # (Manual) Eosinophils # (Manual) PT INR D-Dimer POC ABG pH 7.483 H POC ABG pCO2 POC ABG pO2 61 L ABG pO2 ABG HCO3 ABG Base Excess ABG Hemoglobin Oxyhemoglobin Sodium Potassium Chloride Carbon Dioxide BUN Creatinine Glucose POC Glucose 143 H 106 H Calcium Phosphorus Magnesium ALT Alkaline Phosphatase Total Creatine Kinase CK-MB (CK-2) Rel Index Troponin T Albumin LDL Cholesterol Direct PTH Intact Salicylates Acetaminophen Crossmatch 02/28/19 02/28/19 02/28/19 05:50 11:59 17:52 WBC RBC Hgb Hct MCH MCHC RDW Lymph % (Auto) [place] % (Auto) Eos % (Auto) Lymph # [place] # Eos # Seg Neutrophils % Seg Neuts % (Manual) Lymphocytes % (Manual) Eosinophils % (Manual) Seg Neutrophils # Lymphocytes # (Manual) Eosinophils # (Manual) PT INR D-Dimer POC ABG pH POC ABG pCO2 POC ABG pO2 ABG pO2 ABG HCO3 ABG Base Excess ABG Hemoglobin Oxyhemoglobin Sodium Potassium Chloride Carbon Dioxide BUN Creatinine Glucose POC Glucose 134 H 128 H 142 H Calcium Phosphorus Magnesium ALT Alkaline Phosphatase Total Creatine Kinase CK-MB (CK-2) Rel Index Troponin T Albumin LDL Cholesterol Direct PTH Intact Salicylates Acetaminophen Crossmatch 02/28/19 03/01/19 03/01/19 23:13 05:40 09:39 WBC RBC Hgb Hct MCH MCHC RDW Lymph % (Auto) [place] % (Auto) Eos % (Auto) Lymph # [place] # Eos # Seg Neutrophils % Seg Neuts % (Manual) Lymphocytes % (Manual) Eosinophils % (Manual) Seg Neutrophils # Lymphocytes # (Manual) Eosinophils # (Manual) PT 16.3 H INR 1.35 H D-Dimer POC ABG pH POC ABG pCO2 POC ABG pO2 ABG pO2 ABG HCO3 ABG Base Excess ABG Hemoglobin Oxyhemoglobin Sodium Potassium Chloride Carbon Dioxide BUN Creatinine Glucose POC Glucose 112 H 111 H Calcium Phosphorus Magnesium ALT Alkaline Phosphatase Total Creatine Kinase CK-MB (CK-2) Rel Index Troponin T Albumin LDL Cholesterol Direct PTH Intact Salicylates Acetaminophen Crossmatch 03/01/19 03/01/19 03/01/19 11:56 13:54 17:59 WBC RBC Hgb Hct MCH MCHC RDW Lymph % (Auto) [place] % (Auto) Eos % (Auto) Lymph # [place] # Eos # Seg Neutrophils % Seg Neuts % (Manual) Lymphocytes % (Manual) Eosinophils % (Manual) Seg Neutrophils # Lymphocytes # (Manual) Eosinophils # (Manual) PT INR D-Dimer POC ABG pH POC ABG pCO2 POC ABG pO2 ABG pO2 ABG HCO3 ABG Base Excess ABG Hemoglobin Oxyhemoglobin Sodium Potassium Chloride Carbon Dioxide BUN 33 H Creatinine 2.8 H D Glucose 176 H POC Glucose 199 H 147 H Calcium Phosphorus Magnesium ALT Alkaline Phosphatase Total Creatine Kinase CK-MB (CK-2) Rel Index Troponin T Albumin LDL Cholesterol Direct PTH Intact Salicylates Acetaminophen Crossmatch 03/02/19 03/02/19 03/02/19 05:15 05:15 05:15 WBC RBC 2.73 L Hgb 7.4 L Hct 23.0 L MCH 27 L MCHC RDW 19.9 H Lymph % (Auto) [place] % (Auto) 7.9 H Eos % (Auto) 7.6 H Lymph # 1.0 L [place] # Eos # 0.5 H Seg Neutrophils % Seg Neuts % (Manual) Lymphocytes % (Manual) Eosinophils % (Manual) Seg Neutrophils # Lymphocytes # (Manual) Eosinophils # (Manual) PT INR D-Dimer POC ABG pH POC ABG pCO2 POC ABG pO2 ABG pO2 ABG HCO3 ABG Base Excess ABG Hemoglobin Oxyhemoglobin Sodium Potassium Chloride Carbon Dioxide BUN 43 H Creatinine 3.2 H Glucose POC Glucose Calcium Phosphorus 2.30 L Magnesium ALT Alkaline Phosphatase Total Creatine Kinase CK-MB (CK-2) Rel Index Troponin T Albumin LDL Cholesterol Direct PTH Intact 267.6 H Salicylates Acetaminophen Crossmatch 03/02/19 03/02/19 03/03/19 12:32 18:20 13:30 WBC RBC Hgb Hct MCH MCHC RDW Lymph % (Auto) [place] % (Auto) Eos % (Auto) Lymph # [place] # Eos # Seg Neutrophils % Seg Neuts % (Manual) Lymphocytes % (Manual) Eosinophils % (Manual) Seg Neutrophils # Lymphocytes # (Manual) Eosinophils # (Manual) PT INR D-Dimer POC ABG pH POC ABG pCO2 POC ABG pO2 ABG pO2 ABG HCO3 ABG Base Excess ABG Hemoglobin Oxyhemoglobin Sodium Potassium Chloride 97.3 L Carbon Dioxide BUN 26 H Creatinine 2.2 H Glucose 73 L POC Glucose 111 H 156 H Calcium Phosphorus Magnesium ALT Alkaline Phosphatase Total Creatine Kinase CK-MB (CK-2) Rel Index Troponin T Albumin LDL Cholesterol Direct PTH Intact Salicylates Acetaminophen Crossmatch 03/04/19 03/04/19 03/04/19 00:02 05:37 05:40 WBC RBC 2.63 L Hgb 7.2 L Hct 22.2 L MCH MCHC RDW 20.2 H Lymph % (Auto) 10.5 L [place] % (Auto) Eos % (Auto) 4.6 H Lymph # 0.7 L [place] # Eos # Seg Neutrophils % 76.9 H Seg Neuts % (Manual) Lymphocytes % (Manual) Eosinophils % (Manual) Seg Neutrophils # Lymphocytes # (Manual) Eosinophils # (Manual) PT INR D-Dimer POC ABG pH POC ABG pCO2 POC ABG pO2 ABG pO2 ABG HCO3 ABG Base Excess ABG Hemoglobin Oxyhemoglobin Sodium Potassium Chloride Carbon Dioxide BUN Creatinine Glucose POC Glucose 136 H 123 H Calcium Phosphorus Magnesium ALT Alkaline Phosphatase Total Creatine Kinase CK-MB (CK-2) Rel Index Troponin T Albumin LDL Cholesterol Direct PTH Intact Salicylates Acetaminophen Crossmatch 03/04/19 03/04/19 03/04/19 05:40 11:39 23:20 WBC RBC Hgb Hct MCH MCHC RDW Lymph % (Auto) [place] % (Auto) Eos % (Auto) Lymph # [place] # Eos # Seg Neutrophils % Seg Neuts % (Manual) Lymphocytes % (Manual) Eosinophils % (Manual) Seg Neutrophils # Lymphocytes # (Manual) Eosinophils # (Manual) PT INR D-Dimer POC ABG pH POC ABG pCO2 POC ABG pO2 ABG pO2 ABG HCO3 ABG Base Excess ABG Hemoglobin Oxyhemoglobin Sodium Potassium Chloride Carbon Dioxide BUN 34 H Creatinine 2.7 H Glucose 114 H POC Glucose 175 H 151 H Calcium Phosphorus Magnesium ALT Alkaline Phosphatase Total Creatine Kinase CK-MB (CK-2) Rel Index Troponin T Albumin LDL Cholesterol Direct PTH Intact Salicylates Acetaminophen Crossmatch 03/05/19 03/05/19 03/05/19 05:37 12:08 17:11 WBC RBC Hgb Hct MCH MCHC RDW Lymph % (Auto) [place] % (Auto) Eos % (Auto) Lymph # [place] # Eos # Seg Neutrophils % Seg Neuts % (Manual) Lymphocytes % (Manual) Eosinophils % (Manual) Seg Neutrophils # Lymphocytes # (Manual) Eosinophils # (Manual) PT INR D-Dimer POC ABG pH POC ABG pCO2 POC ABG pO2 ABG pO2 ABG HCO3 ABG Base Excess ABG Hemoglobin Oxyhemoglobin Sodium Potassium Chloride Carbon Dioxide BUN Creatinine Glucose POC Glucose 134 H 135 H 135 H Calcium Phosphorus Magnesium ALT Alkaline Phosphatase Total Creatine Kinase CK-MB (CK-2) Rel Index Troponin T Albumin LDL Cholesterol Direct PTH Intact Salicylates Acetaminophen Crossmatch 03/06/19 03/06/19 03/06/19 00:16 13:05 18:09 WBC RBC Hgb Hct MCH MCHC RDW Lymph % (Auto) [place] % (Auto) Eos % (Auto) Lymph # [place] # Eos # Seg Neutrophils % Seg Neuts % (Manual) Lymphocytes % (Manual) Eosinophils % (Manual) Seg Neutrophils # Lymphocytes # (Manual) Eosinophils # (Manual) PT INR D-Dimer POC ABG pH POC ABG pCO2 POC ABG pO2 ABG pO2 ABG HCO3 ABG Base Excess ABG Hemoglobin Oxyhemoglobin Sodium Potassium Chloride Carbon Dioxide BUN Creatinine Glucose POC Glucose 117 H 113 H 131 H Calcium Phosphorus Magnesium ALT Alkaline Phosphatase Total Creatine Kinase CK-MB (CK-2) Rel Index Troponin T Albumin LDL Cholesterol Direct PTH Intact Salicylates Acetaminophen Crossmatch 03/07/19 03/08/19 03/08/19 05:25 05:33 16:00 WBC RBC 2.44 L Hgb 6.6 L Hct 20.8 L MCH 27 L MCHC RDW 19.2 H Lymph % (Auto) [place] % (Auto) Eos % (Auto) 8.6 H Lymph # 0.8 L [place] # Eos # 0.5 H Seg Neutrophils % 70.7 H Seg Neuts % (Manual) Lymphocytes % (Manual) Eosinophils % (Manual) Seg Neutrophils # Lymphocytes # (Manual) Eosinophils # (Manual) PT INR D-Dimer POC ABG pH POC ABG pCO2 POC ABG pO2 ABG pO2 ABG HCO3 ABG Base Excess ABG Hemoglobin Oxyhemoglobin Sodium Potassium Chloride Carbon Dioxide BUN Creatinine Glucose POC Glucose 106 H 108 H Calcium Phosphorus Magnesium ALT Alkaline Phosphatase Total Creatine Kinase CK-MB (CK-2) Rel Index Troponin T Albumin LDL Cholesterol Direct PTH Intact Salicylates Acetaminophen Crossmatch 03/08/19 03/08/19 03/08/19 16:00 18:38 Unknown WBC RBC Hgb Hct MCH MCHC RDW Lymph % (Auto) [place] % (Auto) Eos % (Auto) Lymph # [place] # Eos # Seg Neutrophils % Seg Neuts % (Manual) Lymphocytes % (Manual) Eosinophils % (Manual) Seg Neutrophils # Lymphocytes # (Manual) Eosinophils # (Manual) PT INR D-Dimer POC ABG pH POC ABG pCO2 POC ABG pO2 ABG pO2 ABG HCO3 ABG Base Excess ABG Hemoglobin Oxyhemoglobin Sodium Potassium 5.4 H D Chloride Carbon Dioxide BUN 47 H Creatinine 2.6 H Glucose POC Glucose 123 H Calcium Phosphorus Magnesium ALT < 5 L Alkaline Phosphatase Total Creatine Kinase CK-MB (CK-2) Rel Index Troponin T Albumin 2.2 L LDL Cholesterol Direct PTH Intact Salicylates Acetaminophen Crossmatch See Detail 03/09/19 03/09/19 03/09/19 10:48 12:28 13:53 WBC RBC 2.85 L Hgb 7.7 L Hct 24.2 L MCH 27 L MCHC RDW 18.7 H Lymph % (Auto) [place] % (Auto) Eos % (Auto) Lymph # [place] # Eos # Seg Neutrophils % Seg Neuts % (Manual) Lymphocytes % (Manual) Eosinophils % (Manual) Seg Neutrophils # Lymphocytes # (Manual) Eosinophils # (Manual) PT INR D-Dimer POC ABG pH POC ABG pCO2 POC ABG pO2 ABG pO2 ABG HCO3 30.5 H ABG Base Excess 5.6 H ABG Hemoglobin 8.1 L Oxyhemoglobin 93.8 L Sodium Potassium Chloride Carbon Dioxide BUN Creatinine Glucose POC Glucose 114 H Calcium Phosphorus Magnesium ALT Alkaline Phosphatase Total Creatine Kinase CK-MB (CK-2) Rel Index Troponin T Albumin LDL Cholesterol Direct PTH Intact Salicylates Acetaminophen Crossmatch 03/09/19 03/09/19 03/10/19 17:58 23:53 12:01 WBC RBC Hgb Hct MCH MCHC RDW Lymph % (Auto) [place] % (Auto) Eos % (Auto) Lymph # [place] # Eos # Seg Neutrophils % Seg Neuts % (Manual) Lymphocytes % (Manual) Eosinophils % (Manual) Seg Neutrophils # Lymphocytes # (Manual) Eosinophils # (Manual) PT INR D-Dimer POC ABG pH POC ABG pCO2 POC ABG pO2 ABG pO2 ABG HCO3 ABG Base Excess ABG Hemoglobin Oxyhemoglobin Sodium Potassium Chloride Carbon Dioxide BUN Creatinine Glucose POC Glucose 108 H 128 H 144 H Calcium Phosphorus Magnesium ALT Alkaline Phosphatase Total Creatine Kinase CK-MB (CK-2) Rel Index Troponin T Albumin LDL Cholesterol Direct PTH Intact Salicylates Acetaminophen Crossmatch 03/10/19 03/11/19 03/11/19 16:50 00:24 05:02 WBC RBC Hgb Hct MCH MCHC RDW Lymph % (Auto) [place] % (Auto) Eos % (Auto) Lymph # [place] # Eos # Seg Neutrophils % Seg Neuts % (Manual) Lymphocytes % (Manual) Eosinophils % (Manual) Seg Neutrophils # Lymphocytes # (Manual) Eosinophils # (Manual) PT INR D-Dimer POC ABG pH POC ABG pCO2 POC ABG pO2 ABG pO2 ABG HCO3 ABG Base Excess ABG Hemoglobin Oxyhemoglobin Sodium Potassium Chloride Carbon Dioxide BUN Creatinine Glucose POC Glucose 147 H 123 H 120 H Calcium Phosphorus Magnesium ALT Alkaline Phosphatase Total Creatine Kinase CK-MB (CK-2) Rel Index Troponin T Albumin LDL Cholesterol Direct PTH Intact Salicylates Acetaminophen Crossmatch 03/11/19 03/11/19 03/11/19 11:56 12:20 18:37 WBC RBC Hgb Hct MCH MCHC RDW Lymph % (Auto) [place] % (Auto) Eos % (Auto) Lymph # [place] # Eos # Seg Neutrophils % Seg Neuts % (Manual) Lymphocytes % (Manual) Eosinophils % (Manual) Seg Neutrophils # Lymphocytes # (Manual) Eosinophils # (Manual) PT INR D-Dimer POC ABG pH POC ABG pCO2 POC ABG pO2 ABG pO2 ABG HCO3 ABG Base Excess ABG Hemoglobin Oxyhemoglobin Sodium Potassium 5.2 H Chloride Carbon Dioxide BUN Creatinine Glucose POC Glucose 123 H 125 H Calcium Phosphorus Magnesium ALT Alkaline Phosphatase Total Creatine Kinase CK-MB (CK-2) Rel Index Troponin T Albumin LDL Cholesterol Direct PTH Intact Salicylates Acetaminophen Crossmatch 03/11/19 03/12/19 03/12/19 22:52 12:04 18:25 WBC RBC Hgb Hct MCH MCHC RDW Lymph % (Auto) [place] % (Auto) Eos % (Auto) Lymph # [place] # Eos # Seg Neutrophils % Seg Neuts % (Manual) Lymphocytes % (Manual) Eosinophils % (Manual) Seg Neutrophils # Lymphocytes # (Manual) Eosinophils # (Manual) PT INR D-Dimer POC ABG pH POC ABG pCO2 POC ABG pO2 ABG pO2 ABG HCO3 ABG Base Excess ABG Hemoglobin Oxyhemoglobin Sodium Potassium Chloride Carbon Dioxide BUN Creatinine Glucose POC Glucose 110 H 106 H 118 H Calcium Phosphorus Magnesium ALT Alkaline Phosphatase Total Creatine Kinase CK-MB (CK-2) Rel Index Troponin T Albumin LDL Cholesterol Direct PTH Intact Salicylates Acetaminophen Crossmatch 03/12/19 03/13/19 03/13/19 23:36 04:38 04:38 WBC RBC 2.95 L Hgb 7.9 L Hct 24.9 L MCH 27 L MCHC RDW 19.9 H Lymph % (Auto) 11.1 L [place] % (Auto) 8.1 H Eos % (Auto) 4.4 H Lymph # 0.9 L [place] # Eos # Seg Neutrophils % 75.4 H Seg Neuts % (Manual) Lymphocytes % (Manual) Eosinophils % (Manual) Seg Neutrophils # Lymphocytes # (Manual) Eosinophils # (Manual) PT INR D-Dimer POC ABG pH POC ABG pCO2 POC ABG pO2 ABG pO2 ABG HCO3 ABG Base Excess ABG Hemoglobin Oxyhemoglobin Sodium 136 L Potassium 5.1 H Chloride 93.8 L Carbon Dioxide BUN 48 H Creatinine 2.7 H Glucose 102 H POC Glucose 115 H Calcium Phosphorus Magnesium ALT < 5 L Alkaline Phosphatase 143 H Total Creatine Kinase CK-MB (CK-2) Rel Index Troponin T Albumin 2.5 L LDL Cholesterol Direct PTH Intact Salicylates Acetaminophen Crossmatch 03/13/19 03/13/19 03/13/19 05:33 13:37 18:03 WBC RBC Hgb Hct MCH MCHC RDW Lymph % (Auto) [place] % (Auto) Eos % (Auto) Lymph # [place] # Eos # Seg Neutrophils % Seg Neuts % (Manual) Lymphocytes % (Manual) Eosinophils % (Manual) Seg Neutrophils # Lymphocytes # (Manual) Eosinophils # (Manual) PT INR D-Dimer POC ABG pH POC ABG pCO2 POC ABG pO2 ABG pO2 ABG HCO3 ABG Base Excess ABG Hemoglobin Oxyhemoglobin Sodium Potassium Chloride Carbon Dioxide BUN Creatinine Glucose POC Glucose 140 H 150 H 158 H Calcium Phosphorus Magnesium ALT Alkaline Phosphatase Total Creatine Kinase CK-MB (CK-2) Rel Index Troponin T Albumin LDL Cholesterol Direct PTH Intact Salicylates Acetaminophen Crossmatch 03/13/19 03/14/19 03/14/19 23:32 05:24 12:20 WBC RBC Hgb Hct MCH MCHC RDW Lymph % (Auto) [place] % (Auto) Eos % (Auto) Lymph # [place] # Eos # Seg Neutrophils % Seg Neuts % (Manual) Lymphocytes % (Manual) Eosinophils % (Manual) Seg Neutrophils # Lymphocytes # (Manual) Eosinophils # (Manual) PT INR D-Dimer POC ABG pH POC ABG pCO2 POC ABG pO2 ABG pO2 ABG HCO3 ABG Base Excess ABG Hemoglobin Oxyhemoglobin Sodium Potassium Chloride Carbon Dioxide BUN Creatinine Glucose POC Glucose 162 H 146 H 127 H Calcium Phosphorus Magnesium ALT Alkaline Phosphatase Total Creatine Kinase CK-MB (CK-2) Rel Index Troponin T Albumin LDL Cholesterol Direct PTH Intact Salicylates Acetaminophen Crossmatch 03/14/19 03/14/19 03/15/19 18:05 23:57 04:38 WBC 12.8 H RBC 3.11 L Hgb 8.1 L Hct 26.5 L MCH 26 L MCHC 31 L RDW 19.7 H Lymph % (Auto) 4.4 L [place] % (Auto) 7.4 H Eos % (Auto) Lymph # 0.6 L [place] # 0.9 H Eos # Seg Neutrophils % 87.3 H Seg Neuts % (Manual) Lymphocytes % (Manual) Eosinophils % (Manual) Seg Neutrophils # 11.2 H Lymphocytes # (Manual) Eosinophils # (Manual) PT INR D-Dimer POC ABG pH POC ABG pCO2 POC ABG pO2 ABG pO2 ABG HCO3 ABG Base Excess ABG Hemoglobin Oxyhemoglobin Sodium Potassium Chloride Carbon Dioxide BUN Creatinine Glucose POC Glucose 142 H 155 H Calcium Phosphorus Magnesium ALT Alkaline Phosphatase Total Creatine Kinase CK-MB (CK-2) Rel Index Troponin T Albumin LDL Cholesterol Direct PTH Intact Salicylates Acetaminophen Crossmatch 03/15/19 03/15/19 03/15/19 04:38 05:31 11:32 WBC RBC Hgb Hct MCH MCHC RDW Lymph % (Auto) [place] % (Auto) Eos % (Auto) Lymph # [place] # Eos # Seg Neutrophils % Seg Neuts % (Manual) Lymphocytes % (Manual) Eosinophils % (Manual) Seg Neutrophils # Lymphocytes # (Manual) Eosinophils # (Manual) PT INR D-Dimer POC ABG pH POC ABG pCO2 POC ABG pO2 ABG pO2 ABG HCO3 ABG Base Excess ABG Hemoglobin Oxyhemoglobin Sodium 135 L Potassium Chloride 91.9 L Carbon Dioxide BUN 54 H Creatinine 2.8 H Glucose 128 H POC Glucose 160 H 109 H Calcium 11.1 H Phosphorus Magnesium ALT Alkaline Phosphatase 161 H Total Creatine Kinase CK-MB (CK-2) Rel Index Troponin T Albumin 2.3 L LDL Cholesterol Direct PTH Intact Salicylates Acetaminophen Crossmatch 03/15/19 03/15/19 03/16/19 18:15 23:41 05:40 WBC RBC Hgb Hct MCH MCHC RDW Lymph % (Auto) [place] % (Auto) Eos % (Auto) Lymph # [place] # Eos # Seg Neutrophils % Seg Neuts % (Manual) Lymphocytes % (Manual) Eosinophils % (Manual) Seg Neutrophils # Lymphocytes # (Manual) Eosinophils # (Manual) PT INR D-Dimer POC ABG pH POC ABG pCO2 POC ABG pO2 ABG pO2 ABG HCO3 ABG Base Excess ABG Hemoglobin Oxyhemoglobin Sodium Potassium Chloride Carbon Dioxide BUN Creatinine Glucose POC Glucose 151 H 110 H 163 H Calcium Phosphorus Magnesium ALT Alkaline Phosphatase Total Creatine Kinase CK-MB (CK-2) Rel Index Troponin T Albumin LDL Cholesterol Direct PTH Intact Salicylates Acetaminophen Crossmatch 03/16/19 03/16/19 03/16/19 11:55 17:04 23:58 WBC RBC Hgb Hct MCH MCHC RDW Lymph % (Auto) [place] % (Auto) Eos % (Auto) Lymph # [place] # Eos # Seg Neutrophils % Seg Neuts % (Manual) Lymphocytes % (Manual) Eosinophils % (Manual) Seg Neutrophils # Lymphocytes # (Manual) Eosinophils # (Manual) PT INR D-Dimer POC ABG pH POC ABG pCO2 POC ABG pO2 ABG pO2 ABG HCO3 ABG Base Excess ABG Hemoglobin Oxyhemoglobin Sodium Potassium Chloride Carbon Dioxide BUN Creatinine Glucose POC Glucose 114 H 147 H 192 H Calcium Phosphorus Magnesium ALT Alkaline Phosphatase Total Creatine Kinase CK-MB (CK-2) Rel Index Troponin T Albumin LDL Cholesterol Direct PTH Intact Salicylates Acetaminophen Crossmatch 03/17/19 03/17/19 03/17/19 05:53 11:17 17:01 WBC RBC Hgb Hct MCH MCHC RDW Lymph % (Auto) [place] % (Auto) Eos % (Auto) Lymph # [place] # Eos # Seg Neutrophils % Seg Neuts % (Manual) Lymphocytes % (Manual) Eosinophils % (Manual) Seg Neutrophils # Lymphocytes # (Manual) Eosinophils # (Manual) PT INR D-Dimer POC ABG pH POC ABG pCO2 POC ABG pO2 ABG pO2 ABG HCO3 ABG Base Excess ABG Hemoglobin Oxyhemoglobin Sodium Potassium Chloride Carbon Dioxide BUN Creatinine Glucose POC Glucose 151 H 161 H 152 H Calcium Phosphorus Magnesium ALT Alkaline Phosphatase Total Creatine Kinase CK-MB (CK-2) Rel Index Troponin T Albumin LDL Cholesterol Direct PTH Intact Salicylates Acetaminophen Crossmatch 03/17/19 03/18/19 03/18/19 21:47 04:15 04:44 WBC RBC Hgb Hct MCH MCHC RDW Lymph % (Auto) [place] % (Auto) Eos % (Auto) Lymph # [place] # Eos # Seg Neutrophils % Seg Neuts % (Manual) Lymphocytes % (Manual) Eosinophils % (Manual) Seg Neutrophils # Lymphocytes # (Manual) Eosinophils # (Manual) PT INR D-Dimer POC ABG pH POC ABG pCO2 POC ABG pO2 ABG pO2 102.8 H ABG HCO3 28.3 H ABG Base Excess ABG Hemoglobin 10.4 L Oxyhemoglobin 94.5 L Sodium Potassium Chloride Carbon Dioxide BUN Creatinine Glucose POC Glucose 170 H 150 H Calcium Phosphorus Magnesium ALT Alkaline Phosphatase Total Creatine Kinase CK-MB (CK-2) Rel Index Troponin T Albumin LDL Cholesterol Direct PTH Intact Salicylates Acetaminophen Crossmatch 03/18/19 03/18/19 03/18/19 06:38 12:12 17:47 WBC RBC Hgb Hct MCH MCHC RDW Lymph % (Auto) [place] % (Auto) Eos % (Auto) Lymph # [place] # Eos # Seg Neutrophils % Seg Neuts % (Manual) Lymphocytes % (Manual) Eosinophils % (Manual) Seg Neutrophils # Lymphocytes # (Manual) Eosinophils # (Manual) PT INR D-Dimer POC ABG pH 7.510 H POC ABG pCO2 POC ABG pO2 164 H ABG pO2 ABG HCO3 ABG Base Excess ABG Hemoglobin Oxyhemoglobin Sodium Potassium Chloride Carbon Dioxide BUN Creatinine Glucose POC Glucose 145 H 149 H Calcium Phosphorus Magnesium ALT Alkaline Phosphatase Total Creatine Kinase CK-MB (CK-2) Rel Index Troponin T Albumin LDL Cholesterol Direct PTH Intact Salicylates Acetaminophen Crossmatch 03/18/19 03/19/19 03/19/19 23:25 01:11 04:23 WBC 15.6 H RBC 2.51 L Hgb 6.5 L Hct 21.6 L MCH 26 L MCHC 30 L RDW 19.8 H Lymph % (Auto) 6.0 L [place] % (Auto) Eos % (Auto) Lymph # 0.9 L [place] # 1.0 H Eos # Seg Neutrophils % 85.5 H Seg Neuts % (Manual) Lymphocytes % (Manual) Eosinophils % (Manual) Seg Neutrophils # 13.4 H Lymphocytes # (Manual) Eosinophils # (Manual) PT INR D-Dimer POC ABG pH POC ABG pCO2 POC ABG pO2 ABG pO2 78.3 L ABG HCO3 30.7 H ABG Base Excess 5.8 H ABG Hemoglobin 5.8 L Oxyhemoglobin 94.6 L Sodium Potassium Chloride Carbon Dioxide BUN Creatinine Glucose POC Glucose 190 H Calcium Phosphorus Magnesium ALT Alkaline Phosphatase Total Creatine Kinase CK-MB (CK-2) Rel Index Troponin T Albumin LDL Cholesterol Direct PTH Intact Salicylates Acetaminophen Crossmatch 03/19/19 03/19/19 03/19/19 05:22 05:35 08:54 WBC RBC Hgb Hct MCH MCHC RDW Lymph % (Auto) [place] % (Auto) Eos % (Auto) Lymph # [place] # Eos # Seg Neutrophils % Seg Neuts % (Manual) Lymphocytes % (Manual) Eosinophils % (Manual) Seg Neutrophils # Lymphocytes # (Manual) Eosinophils # (Manual) PT INR D-Dimer POC ABG pH POC ABG pCO2 POC ABG pO2 ABG pO2 ABG HCO3 ABG Base Excess ABG Hemoglobin Oxyhemoglobin Sodium Potassium Chloride Carbon Dioxide BUN Creatinine Glucose POC Glucose 167 H Calcium Phosphorus Magnesium ALT Alkaline Phosphatase Total Creatine Kinase CK-MB (CK-2) Rel Index Troponin T Albumin LDL Cholesterol Direct PTH Intact Salicylates Acetaminophen Crossmatch See Detail See Detail 03/19/19 03/19/19 03/19/19 12:36 17:02 23:25 WBC RBC Hgb Hct MCH MCHC RDW Lymph % (Auto) [place] % (Auto) Eos % (Auto) Lymph # [place] # Eos # Seg Neutrophils % Seg Neuts % (Manual) Lymphocytes % (Manual) Eosinophils % (Manual) Seg Neutrophils # Lymphocytes # (Manual) Eosinophils # (Manual) PT INR D-Dimer POC ABG pH POC ABG pCO2 POC ABG pO2 ABG pO2 ABG HCO3 ABG Base Excess ABG Hemoglobin Oxyhemoglobin Sodium Potassium Chloride Carbon Dioxide BUN Creatinine Glucose POC Glucose 167 H 135 H 136 H Calcium Phosphorus Magnesium ALT Alkaline Phosphatase Total Creatine Kinase CK-MB (CK-2) Rel Index Troponin T Albumin LDL Cholesterol Direct PTH Intact Salicylates Acetaminophen Crossmatch 03/20/19 03/20/19 03/20/19 05:38 08:40 08:40 WBC RBC 2.61 L Hgb 7.1 L Hct 22.0 L MCH 27 L MCHC RDW 19.6 H Lymph % (Auto) 8.2 L [place] % (Auto) 8.3 H Eos % (Auto) 5.7 H Lymph # 0.8 L [place] # Eos # 0.5 H Seg Neutrophils % 77.3 H Seg Neuts % (Manual) Lymphocytes % (Manual) Eosinophils % (Manual) Seg Neutrophils # Lymphocytes # (Manual) Eosinophils # (Manual) PT INR D-Dimer POC ABG pH POC ABG pCO2 POC ABG pO2 ABG pO2 ABG HCO3 ABG Base Excess ABG Hemoglobin Oxyhemoglobin Sodium Potassium Chloride 95.9 L Carbon Dioxide BUN 69 H Creatinine 2.8 H Glucose 115 H POC Glucose 134 H Calcium 10.5 H Phosphorus Magnesium ALT Alkaline Phosphatase Total Creatine Kinase CK-MB (CK-2) Rel Index Troponin T Albumin LDL Cholesterol Direct PTH Intact Salicylates Acetaminophen Crossmatch 03/20/19 03/20/19 03/20/19 12:13 18:04 23:49 WBC RBC Hgb Hct MCH MCHC RDW Lymph % (Auto) [place] % (Auto) Eos % (Auto) Lymph # [place] # Eos # Seg Neutrophils % Seg Neuts % (Manual) Lymphocytes % (Manual) Eosinophils % (Manual) Seg Neutrophils # Lymphocytes # (Manual) Eosinophils # (Manual) PT INR D-Dimer POC ABG pH POC ABG pCO2 POC ABG pO2 ABG pO2 ABG HCO3 ABG Base Excess ABG Hemoglobin Oxyhemoglobin Sodium Potassium Chloride Carbon Dioxide BUN Creatinine Glucose POC Glucose 144 H 165 H 172 H Calcium Phosphorus Magnesium ALT Alkaline Phosphatase Total Creatine Kinase CK-MB (CK-2) Rel Index Troponin T Albumin LDL Cholesterol Direct PTH Intact Salicylates Acetaminophen Crossmatch 03/21/19 03/21/19 03/21/19 05:00 06:29 06:30 WBC RBC 2.72 L Hgb 7.4 L Hct 22.9 L MCH 27 L MCHC RDW 19.4 H Lymph % (Auto) [place] % (Auto) Eos % (Auto) Lymph # [place] # Eos # Seg Neutrophils % Seg Neuts % (Manual) 81.0 H Lymphocytes % (Manual) 8.0 L Eosinophils % (Manual) 8.0 H Seg Neutrophils # Lymphocytes # (Manual) 0.7 L Eosinophils # (Manual) 0.7 H PT INR D-Dimer POC ABG pH POC ABG pCO2 POC ABG pO2 ABG pO2 ABG HCO3 ABG Base Excess ABG Hemoglobin Oxyhemoglobin Sodium Potassium Chloride Carbon Dioxide 33 H BUN 43 H Creatinine 1.7 H Glucose 145 H POC Glucose 156 H Calcium Phosphorus Magnesium ALT Alkaline Phosphatase 212 H Total Creatine Kinase CK-MB (CK-2) Rel Index Troponin T Albumin 2.2 L LDL Cholesterol Direct PTH Intact Salicylates Acetaminophen Crossmatch 03/21/19 03/21/19 03/22/19 12:02 18:07 00:21 WBC RBC Hgb Hct MCH MCHC RDW Lymph % (Auto) [place] % (Auto) Eos % (Auto) Lymph # [place] # Eos # Seg Neutrophils % Seg Neuts % (Manual) Lymphocytes % (Manual) Eosinophils % (Manual) Seg Neutrophils # Lymphocytes # (Manual) Eosinophils # (Manual) PT INR D-Dimer POC ABG pH POC ABG pCO2 POC ABG pO2 ABG pO2 ABG HCO3 ABG Base Excess ABG Hemoglobin Oxyhemoglobin Sodium Potassium Chloride Carbon Dioxide BUN Creatinine Glucose POC Glucose 163 H 144 H 153 H Calcium Phosphorus Magnesium ALT Alkaline Phosphatase Total Creatine Kinase CK-MB (CK-2) Rel Index Troponin T Albumin LDL Cholesterol Direct PTH Intact Salicylates Acetaminophen Crossmatch 03/22/19 03/22/19 03/22/19 05:23 05:23 05:31 WBC RBC 2.58 L Hgb 7.1 L Hct 21.8 L MCH 27 L MCHC RDW 19.2 H Lymph % (Auto) [place] % (Auto) Eos % (Auto) Lymph # [place] # Eos # Seg Neutrophils % Seg Neuts % (Manual) Lymphocytes % (Manual) Eosinophils % (Manual) Seg Neutrophils # Lymphocytes # (Manual) Eosinophils # (Manual) PT INR D-Dimer POC ABG pH POC ABG pCO2 POC ABG pO2 ABG pO2 ABG HCO3 ABG Base Excess ABG Hemoglobin Oxyhemoglobin Sodium 147 H Potassium Chloride Carbon Dioxide BUN 68 H Creatinine 2.5 H Glucose POC Glucose 116 H Calcium 10.3 H Phosphorus Magnesium ALT Alkaline Phosphatase Total Creatine Kinase CK-MB (CK-2) Rel Index Troponin T Albumin LDL Cholesterol Direct PTH Intact Salicylates Acetaminophen Crossmatch 03/22/19 03/22/19 03/22/19 08:48 12:37 17:35 WBC RBC Hgb Hct MCH MCHC RDW Lymph % (Auto) [place] % (Auto) Eos % (Auto) Lymph # [place] # Eos # Seg Neutrophils % Seg Neuts % (Manual) Lymphocytes % (Manual) Eosinophils % (Manual) Seg Neutrophils # Lymphocytes # (Manual) Eosinophils # (Manual) PT INR D-Dimer POC ABG pH POC ABG pCO2 POC ABG pO2 ABG pO2 ABG HCO3 ABG Base Excess ABG Hemoglobin Oxyhemoglobin Sodium Potassium Chloride Carbon Dioxide BUN Creatinine Glucose POC Glucose 143 H 155 H Calcium Phosphorus Magnesium ALT Alkaline Phosphatase Total Creatine Kinase CK-MB (CK-2) Rel Index Troponin T Albumin LDL Cholesterol Direct PTH Intact Salicylates Acetaminophen Crossmatch See Detail 03/23/19 03/23/19 03/23/19 00:07 04:00 04:00 WBC 11.2 H RBC 2.32 L Hgb 6.4 L Hct 19.7 L* MCH MCHC RDW 19.4 H Lymph % (Auto) [place] % (Auto) Eos % (Auto) Lymph # [place] # Eos # Seg Neutrophils % Seg Neuts % (Manual) Lymphocytes % (Manual) Eosinophils % (Manual) Seg Neutrophils # Lymphocytes # (Manual) Eosinophils # (Manual) PT INR D-Dimer POC ABG pH POC ABG pCO2 POC ABG pO2 ABG pO2 ABG HCO3 ABG Base Excess ABG Hemoglobin Oxyhemoglobin Sodium 147 H Potassium 5.2 H Chloride Carbon Dioxide BUN 86 H Creatinine 3.2 H Glucose 128 H POC Glucose 135 H Calcium 10.3 H Phosphorus Magnesium ALT Alkaline Phosphatase Total Creatine Kinase CK-MB (CK-2) Rel Index Troponin T Albumin LDL Cholesterol Direct PTH Intact Salicylates Acetaminophen Crossmatch 03/23/19 03/23/19 03/23/19 05:21 11:36 11:36 WBC RBC Hgb 7.9 L Hct 25.0 L MCH MCHC RDW Lymph % (Auto) [place] % (Auto) Eos % (Auto) Lymph # [place] # Eos # Seg Neutrophils % Seg Neuts % (Manual) Lymphocytes % (Manual) Eosinophils % (Manual) Seg Neutrophils # Lymphocytes # (Manual) Eosinophils # (Manual) PT INR D-Dimer POC ABG pH POC ABG pCO2 POC ABG pO2 ABG pO2 ABG HCO3 ABG Base Excess ABG Hemoglobin Oxyhemoglobin Sodium Potassium Chloride Carbon Dioxide BUN Creatinine Glucose POC Glucose 132 H 147 H Calcium Phosphorus Magnesium ALT Alkaline Phosphatase Total Creatine Kinase CK-MB (CK-2) Rel Index Troponin T Albumin LDL Cholesterol Direct PTH Intact Salicylates Acetaminophen Crossmatch 03/23/19 03/24/19 03/24/19 17:31 01:22 04:20 WBC 12.2 H RBC 3.05 L Hgb 8.3 L Hct 25.9 L MCH 27 L MCHC RDW 18.7 H Lymph % (Auto) [place] % (Auto) Eos % (Auto) Lymph # [place] # Eos # Seg Neutrophils % Seg Neuts % (Manual) Lymphocytes % (Manual) Eosinophils % (Manual) Seg Neutrophils # Lymphocytes # (Manual) Eosinophils # (Manual) PT INR D-Dimer POC ABG pH POC ABG pCO2 POC ABG pO2 ABG pO2 ABG HCO3 ABG Base Excess ABG Hemoglobin Oxyhemoglobin Sodium Potassium Chloride Carbon Dioxide BUN Creatinine Glucose POC Glucose 182 H 113 H Calcium Phosphorus Magnesium ALT Alkaline Phosphatase Total Creatine Kinase CK-MB (CK-2) Rel Index Troponin T Albumin LDL Cholesterol Direct PTH Intact Salicylates Acetaminophen Crossmatch 03/24/19 03/24/19 03/24/19 04:20 11:59 18:14 WBC RBC Hgb Hct MCH MCHC RDW Lymph % (Auto) [place] % (Auto) Eos % (Auto) Lymph # [place] # Eos # Seg Neutrophils % Seg Neuts % (Manual) Lymphocytes % (Manual) Eosinophils % (Manual) Seg Neutrophils # Lymphocytes # (Manual) Eosinophils # (Manual) PT INR D-Dimer POC ABG pH POC ABG pCO2 POC ABG pO2 ABG pO2 ABG HCO3 ABG Base Excess ABG Hemoglobin Oxyhemoglobin Sodium Potassium Chloride 94.8 L Carbon Dioxide 32 H BUN 53 H Creatinine 2.3 H Glucose POC Glucose 163 H 134 H Calcium Phosphorus Magnesium ALT Alkaline Phosphatase Total Creatine Kinase CK-MB (CK-2) Rel Index Troponin T Albumin LDL Cholesterol Direct PTH Intact Salicylates Acetaminophen Crossmatch 03/24/19 03/25/19 03/25/19 23:15 05:52 12:02 WBC RBC Hgb Hct MCH MCHC RDW Lymph % (Auto) [place] % (Auto) Eos % (Auto) Lymph # [place] # Eos # Seg Neutrophils % Seg Neuts % (Manual) Lymphocytes % (Manual) Eosinophils % (Manual) Seg Neutrophils # Lymphocytes # (Manual) Eosinophils # (Manual) PT INR D-Dimer POC ABG pH POC ABG pCO2 POC ABG pO2 ABG pO2 ABG HCO3 ABG Base Excess ABG Hemoglobin Oxyhemoglobin Sodium Potassium Chloride Carbon Dioxide BUN Creatinine Glucose POC Glucose 129 H 123 H 125 H Calcium Phosphorus Magnesium ALT Alkaline Phosphatase Total Creatine Kinase CK-MB (CK-2) Rel Index Troponin T Albumin LDL Cholesterol Direct PTH Intact Salicylates Acetaminophen Crossmatch 03/25/19 03/26/19 03/26/19 17:27 00:30 05:35 WBC RBC 3.01 L Hgb 8.1 L Hct 25.7 L MCH 27 L MCHC RDW 19.2 H Lymph % (Auto) 11.4 L [place] % (Auto) Eos % (Auto) 8.0 H Lymph # 1.0 L [place] # Eos # 0.7 H Seg Neutrophils % 73.9 H Seg Neuts % (Manual) Lymphocytes % (Manual) Eosinophils % (Manual) Seg Neutrophils # Lymphocytes # (Manual) Eosinophils # (Manual) PT INR D-Dimer POC ABG pH POC ABG pCO2 POC ABG pO2 ABG pO2 ABG HCO3 ABG Base Excess ABG Hemoglobin Oxyhemoglobin Sodium Potassium Chloride Carbon Dioxide BUN Creatinine Glucose POC Glucose 130 H 129 H Calcium Phosphorus Magnesium ALT Alkaline Phosphatase Total Creatine Kinase CK-MB (CK-2) Rel Index Troponin T Albumin LDL Cholesterol Direct PTH Intact Salicylates Acetaminophen Crossmatch 03/26/19 03/26/19 03/26/19 05:35 05:45 12:16 WBC RBC Hgb Hct MCH MCHC RDW Lymph % (Auto) [place] % (Auto) Eos % (Auto) Lymph # [place] # Eos # Seg Neutrophils % Seg Neuts % (Manual) Lymphocytes % (Manual) Eosinophils % (Manual) Seg Neutrophils # Lymphocytes # (Manual) Eosinophils # (Manual) PT INR D-Dimer POC ABG pH POC ABG pCO2 POC ABG pO2 ABG pO2 ABG HCO3 ABG Base Excess ABG Hemoglobin Oxyhemoglobin Sodium Potassium Chloride 94.9 L Carbon Dioxide 31 H BUN 44 H Creatinine 2.0 H Glucose POC Glucose 118 H 107 H Calcium Phosphorus Magnesium ALT Alkaline Phosphatase Total Creatine Kinase CK-MB (CK-2) Rel Index Troponin T Albumin LDL Cholesterol Direct PTH Intact Salicylates Acetaminophen Crossmatch 03/26/19 03/27/19 03/27/19 17:56 00:36 05:37 WBC RBC Hgb Hct MCH MCHC RDW Lymph % (Auto) [place] % (Auto) Eos % (Auto) Lymph # [place] # Eos # Seg Neutrophils % Seg Neuts % (Manual) Lymphocytes % (Manual) Eosinophils % (Manual) Seg Neutrophils # Lymphocytes # (Manual) Eosinophils # (Manual) PT INR D-Dimer POC ABG pH POC ABG pCO2 POC ABG pO2 ABG pO2 ABG HCO3 ABG Base Excess ABG Hemoglobin Oxyhemoglobin Sodium Potassium Chloride Carbon Dioxide BUN Creatinine Glucose POC Glucose 107 H 110 H 122 H Calcium Phosphorus Magnesium ALT Alkaline Phosphatase Total Creatine Kinase CK-MB (CK-2) Rel Index Troponin T Albumin LDL Cholesterol Direct PTH Intact Salicylates Acetaminophen Crossmatch 03/27/19 03/27/19 03/28/19 11:22 18:00 05:17 WBC RBC Hgb Hct MCH MCHC RDW Lymph % (Auto) [place] % (Auto) Eos % (Auto) Lymph # [place] # Eos # Seg Neutrophils % Seg Neuts % (Manual) Lymphocytes % (Manual) Eosinophils % (Manual) Seg Neutrophils # Lymphocytes # (Manual) Eosinophils # (Manual) PT INR D-Dimer POC ABG pH POC ABG pCO2 POC ABG pO2 ABG pO2 ABG HCO3 ABG Base Excess ABG Hemoglobin Oxyhemoglobin Sodium Potassium Chloride Carbon Dioxide BUN Creatinine Glucose POC Glucose 120 H 111 H 107 H Calcium Phosphorus Magnesium ALT Alkaline Phosphatase Total Creatine Kinase CK-MB (CK-2) Rel Index Troponin T Albumin LDL Cholesterol Direct PTH Intact Salicylates Acetaminophen Crossmatch 03/28/19 03/28/19 03/29/19 12:27 18:08 05:47 WBC RBC Hgb Hct MCH MCHC RDW Lymph % (Auto) [place] % (Auto) Eos % (Auto) Lymph # [place] # Eos # Seg Neutrophils % Seg Neuts % (Manual) Lymphocytes % (Manual) Eosinophils % (Manual) Seg Neutrophils # Lymphocytes # (Manual) Eosinophils # (Manual) PT INR D-Dimer POC ABG pH POC ABG pCO2 POC ABG pO2 ABG pO2 ABG HCO3 ABG Base Excess ABG Hemoglobin Oxyhemoglobin Sodium Potassium Chloride Carbon Dioxide BUN Creatinine Glucose POC Glucose 114 H 121 H 112 H Calcium Phosphorus Magnesium ALT Alkaline Phosphatase Total Creatine Kinase CK-MB (CK-2) Rel Index Troponin T Albumin LDL Cholesterol Direct PTH Intact Salicylates Acetaminophen Crossmatch 03/29/19 03/29/19 03/30/19 12:14 18:08 00:31 WBC RBC Hgb Hct MCH MCHC RDW Lymph % (Auto) [place] % (Auto) Eos % (Auto) Lymph # [place] # Eos # Seg Neutrophils % Seg Neuts % (Manual) Lymphocytes % (Manual) Eosinophils % (Manual) Seg Neutrophils # Lymphocytes # (Manual) Eosinophils # (Manual) PT INR D-Dimer POC ABG pH POC ABG pCO2 POC ABG pO2 ABG pO2 ABG HCO3 ABG Base Excess ABG Hemoglobin Oxyhemoglobin Sodium Potassium Chloride Carbon Dioxide BUN Creatinine Glucose POC Glucose 117 H 140 H 114 H Calcium Phosphorus Magnesium ALT Alkaline Phosphatase Total Creatine Kinase CK-MB (CK-2) Rel Index Troponin T Albumin LDL Cholesterol Direct PTH Intact Salicylates Acetaminophen Crossmatch 03/30/19 03/30/19 03/30/19 10:13 10:13 23:53 WBC RBC 2.81 L Hgb 7.7 L Hct 24.3 L MCH 27 L MCHC RDW 19.0 H Lymph % (Auto) 12.2 L [place] % (Auto) Eos % (Auto) 7.9 H Lymph # 1.0 L [place] # Eos # 0.6 H Seg Neutrophils % 72.3 H Seg Neuts % (Manual) Lymphocytes % (Manual) Eosinophils % (Manual) Seg Neutrophils # Lymphocytes # (Manual) Eosinophils # (Manual) PT INR D-Dimer POC ABG pH POC ABG pCO2 POC ABG pO2 ABG pO2 ABG HCO3 ABG Base Excess ABG Hemoglobin Oxyhemoglobin Sodium Potassium 5.1 H Chloride 96.5 L Carbon Dioxide BUN 73 H Creatinine 3.9 H D Glucose POC Glucose 114 H Calcium 10.3 H Phosphorus 6.30 H Magnesium 2.70 H ALT Alkaline Phosphatase 185 H Total Creatine Kinase CK-MB (CK-2) Rel Index Troponin T Albumin 2.6 L LDL Cholesterol Direct PTH Intact Salicylates Acetaminophen Crossmatch 03/31/19 03/31/19 03/31/19 05:45 10:26 10:26 WBC RBC 3.01 L Hgb 8.2 L Hct 26.4 L MCH 27 L MCHC 31 L RDW 20.3 H Lymph % (Auto) 13.3 L [place] % (Auto) Eos % (Auto) 7.2 H Lymph # 1.1 L [place] # Eos # 0.6 H Seg Neutrophils % 72.1 H Seg Neuts % (Manual) Lymphocytes % (Manual) Eosinophils % (Manual) Seg Neutrophils # Lymphocytes # (Manual) Eosinophils # (Manual) PT INR D-Dimer POC ABG pH POC ABG pCO2 POC ABG pO2 ABG pO2 ABG HCO3 ABG Base Excess ABG Hemoglobin Oxyhemoglobin Sodium Potassium Chloride 96.9 L Carbon Dioxide 33 H BUN 37 H Creatinine 2.4 H Glucose POC Glucose 108 H Calcium 10.3 H Phosphorus Magnesium ALT Alkaline Phosphatase Total Creatine Kinase CK-MB (CK-2) Rel Index Troponin T Albumin LDL Cholesterol Direct PTH Intact Salicylates Acetaminophen Crossmatch 03/31/19 04/01/19 12:38 05:48 WBC RBC Hgb Hct MCH MCHC RDW Lymph % (Auto) [place] % (Auto) Eos % (Auto) Lymph # [place] # Eos # Seg Neutrophils % Seg Neuts % (Manual) Lymphocytes % (Manual) Eosinophils % (Manual) Seg Neutrophils # Lymphocytes # (Manual) Eosinophils # (Manual) PT INR D-Dimer POC ABG pH POC ABG pCO2 POC ABG pO2 ABG pO2 ABG HCO3 ABG Base Excess ABG Hemoglobin Oxyhemoglobin Sodium Potassium Chloride Carbon Dioxide BUN Creatinine Glucose POC Glucose 108 H 114 H Calcium Phosphorus Magnesium ALT Alkaline Phosphatase Total Creatine Kinase CK-MB (CK-2) Rel Index Troponin T Albumin LDL Cholesterol Direct PTH Intact Salicylates Acetaminophen Crossmatch
[2019-04-01] MEDS: SODIUM HYPOCHLORITE, DAKIN'S 1/2 STRENGTH (0.25%) 473 ML TOPICAL SOLN TP SCH (13:41)
--- NOTE | 2019-04-01 15:22 | Progress Note ---
Assessment and Plan Assessment and plan: Patient is 63-year-old -Citizen Of [place] male patient from [facility] with multiple co-morbidities including blindness, CVA, CHF, PPM/ICD, loop recorder since 2012 that is MRI compatible, IDDM type 2, sepsis left foot ulcer, afib, ESRD with complications on HD TTS, hypertension, AOCD and GERD who presented to the ED with hypotensive after intubation in the emergency room. diagnosed with fluid overload, pleural effusion. Patient has had recurrent admission in the hospital for similar reason and was recently discharged from the hospital following treatment of Severe Sepsis due to Necrotizing Unstagable sacral decubitus ulcer with ostemomylitis, has received multiple courses of broad spectrum abx. Acute hypoxic respiratory failure, status post intubation and ventilatory support, now off vent, on T-piece Acute respiratory failure on mechanical ventilator >96 hrs Extubated ; history of tracheostomy on T piece Current management , nebulizers, Currently on trach/peg placed on 03/03. Now off vent, cont oxygen supplement, improving, on t piece, nebulizers, pulmonary critical following acute on chronic systolic CHF/ Acute pulmonary edema, HD per schedule Dilated CMP, EF 35-40% Continue diuresis, supportive care Acute metabolic encephalopathy, resolved, has baseline Dementia. --ESRD on hemodialysis per schedule nephrology following --Bilateral pleural effusions improved with HD --Permanent atrial fibrillation and flutter and hypercoaguable state Not on anticoagulation because of anemia thrombocytopenia rate control meds optimized --Diabetes mellitus type 2 Accu-Chek sliding scale coverage Insulin as needed --NSTEMI type 2 , Cardiology following --Schizophrenia:stable --Legally blind, supportive care --hypertension, Monitor BP,'s adjust medications as needed --Hypokalemia; corrected --Pulmonary hypertension; continue current management --Dysphagia s/p PEG tube; PEG tubes per protocol --Sacral decub ulcer; Wound care --Severe malnutrition /hypoalbuminemia with FTT: 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, inorganic chemist following PEG placed on 01/02/19 --Multiple decubiti, different stages , s/ p colostomy Left 5th finger, stage 4 pressure ulcer Left heel, deep tissue injury Sacrum, stage 4 pressure ulcer POA Continue wound care --History of sacral osteomyelitis and LE ulcers Completed Antibiotics, contact isolation for ESBL Klebsiella pneumonia on wound culture 01/02/19 --Anemia of chronic disease s/p 1 unit of prbc , stable --RUL atelectasis, probably mucous plugging --DVT prophylaxis; Lovenox --Full code status --Very poor prognosis Dispo; Awaiting SNF placement , difficult to place ,unable to find any NH to take patient. inpatient hospice was recommended, but family is not agreeable at this time. family meeting and ethic consult as needed History Interval history: Patient was seen and evaluated this morning, Patient is on PEG and trach. Hospitalist Physical - Physical exam Narrative exam: Patient is on trach and PEG The patient appeared well nourished and normally developed. Vital signs as documented. Head exam is unremarkable. No scleral icterus . Neck is without jugular venous distension, thyromegaly, or carotid bruits. Lungs are clear to auscultation. Cardiac exam reveals regular rate and Rhythm. First and second heart sounds normal. No murmurs, rubs or gallops. Abdominal exam reveals PEG tube in place, colostomy bag in place. Extremities are nonedematous and both femoral and pedal pulses are normal. 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 - Constitutional Vitals: Temp Pulse Resp BP Pulse Ox 98.0 F 106 H 18 111/61 93 04/01/19 12:09 04/01/19 15:01 04/01/19 12:04/01/19 15:01 04/01/19 15:01 General appearance: Present: no acute distress, well-nourished, other (t racheostomy on T piece) Results - Labs CBC & Chem 7: 03/31/19 10:26 03/31/19 10:26 Labs: Laboratory Last Values WBC 8.3 K/mm3 (4.5-11.0) 03/31/19 10:26 RBC 3.01 M/mm3 (3.65-5.03) L 03/31/19 10:26 Hgb 8.2 gm/dl (11.8-15.2) L 03/31/19 10: Hct 26.4 % (35.5-45.6) L 03/31/19 10:26 MCV 88 fl (84-94) 03/31/19 10: MCH 27 pg (28-32) L 03/31/19 10: MCHC 31 % (32-34) L 03/31/19 10: RDW 20.3 % (13.2-15.2) H 03/31/19 10:26 Plt Count 361 K/mm3 (140-440) 03/31/19 10: Lymph % (Auto) 13.3 % (13.4-35.0) L 03/31/19 10: [place] % (Auto) 6.5 % (0.0-7.3) 03/31/19 10: Eos % (Auto) 7.2 % (0.0-4.3) H 03/31/19 10: Baso % (Auto) 0.9 % (0.0-1.8) 03/31/19 10: Lymph # 1.1 K/mm3 (1.2-5.4) L 03/31/19 10: [place] # 0.5 K/mm3 (0.0-0.8) 03/31/19 10: Eos # 0.6 K/mm3 (0.0-0.4) H 03/31/19 10: Baso # 0.1 K/mm3 (0.0-0.1) 03/31/19 10: Add Manual Diff Complete 03/21/19 06:30 Total Counted 100 03/21/19 06:30 Seg Neutrophils % 72.1 % (40.0-70.0) H 03/31/19 10: Seg Neuts % (Manual) 81.0 % (40.0-70.0) H 03/21/19 06:30 0 % 03/21/19 06:30 8.0 % (13.4-35.0) L 03/21/19 06:30 Reactive Lymphs % (Man) 0 % 03/21/19 06:30 1.0 % (0.0-7.3) 03/21/19 06:30 8.0 % (0.0-4.3) H 03/21/19 06:30 1.0 % (0.0-1.8) 03/21/19 06:30 1.0 % 03/21/19 06:30 0 % 03/21/19 06:30 0 % 03/21/19 06:30 0 % 03/21/19 06:30 Nucleated RBC % Not Reportable 03/21/19 06:30 Seg Neutrophils # 6.0 K/mm3 (1.8-7.7) 03/31/19 10:26 Seg Neutrophils # Man 6.7 K/mm3 (1.8-7.7) 03/21/19 06:30 Band Neutrophils # 0.0 K/mm3 03/21/19 06:30 0.7 K/mm3 (1.2-5.4) L 03/21/19 06:30 Abs React Lymphs (Man) 0.0 K/mm3 03/21/19 06:30 0.1 K/mm3 (0.0-0.8) 03/21/19 06:30 0.7 K/mm3 (0.0-0.4) H 03/21/19 06:30 0.1 K/mm3 (0.0-0.1) 03/21/19 06:30 0.1 K/mm3 03/21/19 06:30 0.0 K/mm3 03/21/19 06:30 0.0 K/mm3 03/21/19 06:30 Blast Cells # 0.0 K/mm3 03/21/19 06:30 WBC Morphology Not Reportable 03/21/19 06:30 Hypersegmented Neuts Not Reportable 03/21/19 06:30 Hyposegmented Neuts Not Reportable 03/21/19 06:30 Hypogranular Neuts Not Reportable 03/21/19 06:30 Not Reportable 03/21/19 06:30 Not Reportable 03/21/19 06:30 Not Reportable 03/21/19 06:30 Not Reportable 03/21/19 06:30 Not Reportable 03/21/19 06:30 Not Reportable 03/21/19 06:30 Consistent w auto 03/21/19 06:30 Not Reportable 03/21/19 06:30 Plt Clumps, EDTA Not Reportable 03/21/19 06:30 Not Reportable 03/21/19 06:30 Not Reportable 03/21/19 06:30 Not Reportable 03/21/19 06:30 Plt Morphology Comment Not Reportable 03/21/19 06:30 RBC Morphology Not Reportable 03/21/19 06:30 Dimorphic RBCs Not Reportable 03/21/19 06:30 Not Reportable 03/21/19 06:30 Few 03/21/19 06:30 Few 03/21/19 06:30 Few 03/21/19 06:30 Not Reportable 03/21/19 06:30 Not Reportable 03/21/19 06:30 Not Reportable 03/21/19 06:30 Not Reportable 03/21/19 06:30 Not Reportable 03/21/19 06:30 1+ 03/21/19 06:30 Not Reportable 03/21/19 06:30 Few 03/21/19 06:30 Not Reportable 03/21/19 06:30 Not Reportable 03/21/19 06:30 Not Reportable 03/21/19 06:30 Not Reportable 03/21/19 06:30 Not Reportable 03/21/19 06:30 Not Reportable 03/21/19 06:30 Not Reportable 03/21/19 06:30 Acanthocytes (Spur) Not Reportable 03/21/19 06:30 Rouleaux Not Reportable 03/21/19 06:30 Not Reportable 03/21/19 06:30 Not Reportable 03/21/19 06:30 Not Reportable 03/21/19 06:30 Not Reportable 03/21/19 06:30 Hem Pathologist Commnt No 03/21/19 06:30 PT 16.3 Sec. (12.2-14.9) H 03/01/19 09:39 INR 1.35 (0.87-1.13) H 03/01/19 09:39 APTT 33.7 Sec. (24.2-36.6) 02/21/19 18:30 2987.82 ng/mlDDU (0-234) H 02/22/19 05:54 POC ABG pH 7.510 (7.35-7.45) H 03/18/19 06:38 ABG pH 7.424 pH Units (7.350-7.450) 03/19/19 04:23 POC ABG pCO2 38.9 (35-45) 03/18/19 06:38 ABG pCO2 48.0 mm Hg 03/19/19 04:23 POC ABG pO2 164 (80-105) H 03/18/19 06:38 ABG pO2 78.3 mm Hg (80.0-90.0) L 03/19/19 04:23 POC ABG HCO3 31.0 (22-26 mml/L) 03/18/19 06:38 ABG HCO3 30.7 mmol/L (20.0-26.0) H 03/19/19 04:23 POC ABG Total CO2 32 (23-27mmol/L) 03/18/19 06:38 POC ABG O2 Sat 100 03/18/19 06:38 ABG O2 Saturation 97.0 % (95.0-99.0) 03/19/19 04:23 ABG O2 Content 7.9 (0.0-44) 03/19/19 04:23 POC ABG Base Excess 8 ((-2) - (+3)mmol/L) 03/18/19 06:38 ABG Base Excess 5.8 mmol/L (-2.0-3.0) H 03/19/19 04:23 ABG Hemoglobin 5.8 gm/dl (14.0-18.0) L 03/19/19 04:23 ABG Carboxyhemoglobin 2.0 % (0.0-5.0) 03/19/19 04:23 ABG Methemoglobin 0.4 % (0.0-1.5) 03/19/19 04:23 94.6 % (95.0-99.0) L 03/19/19 04:23 35 % 03/19/19 04:23 Sodium 143 mmol/L (137-145) 03/31/19 10:26 Potassium 4.1 mmol/L (3.6-5.0) 03/31/19 10:26 Chloride 96.9 mmol/L (98-107) L 03/31/19 10:26 Carbon Dioxide 33 mmol/L (22-30) H 03/31/19 10:26 17 mmol/L 03/31/19 10:26 BUN 37 mg/dL (9-20) H 03/31/19 10:26 2.4 mg/dL (0.8-1.5) H 03/31/19 10:26 Estimated GFR 33 ml/min 03/31/19 10:26 15 % 03/31/19 10:26 Glucose 86 mg/dL (75-100) 03/31/19 10:26 POC Glucose 111 (70-105) H 04/01/19 12:06 Lactic Acid 1.00 mmol/L (0.7-2.0) 02/21/19 20:58 Calcium 10.3 mg/dL (8.4-10.2) H 03/31/19 10:26 Phosphorus 4.30 mg/dL (2.5-4.5) D 03/31/19 10:26 Magnesium 2.70 mg/dL (1.7-2.3) H 03/30/19 10:13 0.20 mg/dL (0.1-1.2) 03/30/19 10:13 AST 16 units/L (5-40) 03/30/19 10:13 ALT 11 units/L (7-56) 03/30/19 10:13 185 units/L (35-129) H 03/30/19 10:13 28.0 umol/L (25-60) 02/21/19 20:04 64 units/L (55-170) 02/22/19 03:42 CK-MB (CK-2) 3.7 ng/mL (0.0-4.0) 02/22/19 03:42 CK-MB (CK-2) Rel Index 5.7 (0-4) H 02/22/19 03:42 0.193 ng/mL (0.00-0.029) H* 02/22/19 03:42 6.9 g/dL (6.3-8.2) 03/30/19 10:13 2.6 g/dL (3.9-5) L 03/30/19 10:13 0.6 % 03/30/19 10:13 Triglycerides 51 mg/dL (2-149) 02/21/19 18:30 Cholesterol 82 mg/dL (50-199) 02/21/19 18:30 36 mg/dL (50-130) L 02/21/19 18:30 40 mg/dL (40-59) 02/21/19 18:30 2.05 % 02/21/19 18:30 TSH 2.760 mlU/mL (0.270-4.200) 02/21/19 20:04 PTH Intact 267.6 pg/mL (15-65) H 03/02/19 05:15 Salicylates < 0.3 mg/dL (2.8-20.0) L 02/21/19 20:04 Acetaminophen < 5.0 ug/mL (10.0-30.0) L 02/21/19 20:04 Hepatitis A IgM Ab Non-reactive (NonReactive) 03/31/19 22:56 Hep Bs Antigen Non-reactive (Negative) 03/31/19 22:56 Hep B Core IgM Ab Non-reactive (NonReactive) 03/31/19 22:56 Non-reactive (NonReactive) 03/31/19 22:56 Blood Type O POSITIVE 03/22/19 08:48 Antibody Screen Negative 03/22/19 08:48 Crossmatch See Detail 03/22/19 08:48 Active Medications - Current Medications Current Medications: Generic Name Dose Route Start Last Admin Trade Name Freq PRN Reason Stop Dose Admin Albuterol/Ipratropium 1 ampul 02/24/19 20:00 04/01/19 09:00 Duoneb *Not For Prn Use* IH 1 ampul TIDRT SANCHEZ Administration Lipase/Protease/Amylase 1 each 03/05/19 14:04 Pancrejewel Barrientos 10,500 Unit FEEDTUBE PRN PRN For Clogged Feeding Tube Epoetin Solitario 20,000 unit 03/24/19 11:17 04/01/19 09:51 Procrit IV 20,000 unit UMA PRN Administration hemodialysis Famotidine 20 mg 02/23/19 10:00 04/01/19 11:25 Pepcid PO 20 mg DAILY SANCHEZ Administration Heparin Sodium (Porcine) 5,000 unit 03/04/19 22:00 04/01/19 11:24 Heparin SUB-Q 5,000 unit Q12HR SANCHEZ Administration Hydrophilic Ointment 1 applic 02/21/19 18:24 03/05/19 08:16 Vaseline Lip Therapy TP 1 applic Q2HR PRN Administration Dry Lips Sodium Chloride 100 mls @ 999 mls/hr 02/26/19 09:00 Nacl 0.9% IV UMA PRN Hypotension Insulin Human Regular 0 units 02/26/19 12:00 04/01/19 12:41 Humulin R SUB-Q Not Given Q6HR PENDING SALE TO [facility] Protocol Metoprolol Tartrate 2.5 mg 02/28/19 12:06 03/15/19 05:15 Lopressor IV 2.5 mg Q4HR PRN Administration Tachycardia Multi-Ingred Cream/Lotion/Oil/Oint 1 applic 02/21/19 18:24 03/29/19 21:40 Artificial Tears Ophth Oint OU 1 applic Q4HR PRN Administration Dry Eye(s) Risperidone 1 mg 02/25/19 13:00 04/01/19 11:25 Risperdal PO 1 mg DAILY SANCHEZ Administration Scopolamine 1 each 03/13/19 04:00 03/31/19 03:31 Transderm-Scop TD 1 each Q3D SANCHEZ Administration Sertraline HCl 100 mg 02/25/19 13:00 04/01/19 11:25 Zoloft PO 100 mg DAILY SANCHEZ Administration Simple Syrup 15 ml 03/05/19 14:04 Simple Syrup FEEDTUBE PRN PRN Hypoglycemia Simple Syrup 30 ml 03/05/19 14:04 Simple Syrup FEEDTUBE PRN PRN Hypoglycemia Sodium Bicarbonate 325 mg 03/05/19 14:04 Sodium Bicarbonate FEEDTUBE PRN PRN For Clogged Feeding Tube Sodium Hypochlorite 1 applic 04/01/19 13:00 04/01/19 13:41 Dakin's Half Strength TP 1 applicatio BID SANCHEZ Administration Tramadol HCl 50 mg 03/05/19 10:08 04/01/19 05:42 Ultram PO 50 mg Q6H PRN Administration Pain, Moderate (4-6) Nutrition/Malnutrition Assess - Dietary Evaluation Nutrition/Malnutrition Findings: Nutrition Notes Start: 02/22/19 12:51 Freq: Status: Active Protocol: Document 03/28/19 11:19 LM (Rec: 03/28/19 11:24 LM [id number]) Nutrition Notes Labs/Tests Reviewed Pertinent Medications Reviewed Height 5 ft 10 in Weight 74.7 kg [place] Body Weight (kg) 75.45 BMI 23.6 Subjective/Other Information Nepro running at 50 ml/hr at time of visit. Pt is tolerating TF. Percent of energy/protein needs met: 96%/100% Burn Absent Trauma Absent #2 Nutrition Diagnosis Increased nutrient needs ( specify in comment below) Diagnosis Progress(for reassessment Continues documentation) #1 Nutrition Diagnosis Inadequate oral intake Diagnosis Progress(for reassessment Continues documentation) Is patient on ventilator? No Is Patient Ambulatory and/or Out of Bed No REE-([facility]-confined to bed) 1857.144 Kcal/Kg value to use for calculation 30 Approximate Energy Requirements Using 2241 kcal/Kg Calculation Used for Recommendations Kcal/kg Additional Notes Protein Needs: 90-112g (1.2-1. 5g/kg) Fluid Needs: 1-1.5 L/day Nutrition Intervention Change Diet Order: Continue TF Nutrition Support: Nepro with Carbsteady 1.8 at 50 ml/hr Flush 200 ml q4hr Kcal 2,160 Protein (gm) 97 Fluid (mL) 872 Add Supplement/Snack (indicate name/kcal Abhilash BID /protein ) Provides kCal: 190 Provides Protein (gm) 5 Goal #1 TF tolerance Goal #2 Continue to meet at least 80% of calorie and protein needs via TF Anticipated Discharge Needs: TF Follow-Up By: 04/03/19 Additional Comments F/U for new TF rate/tolerance
[2019-04-02] MEDS: INSULIN REGULAR, HUMAN 100 UNITS/1 ML SUB-Q SCH ×3 (00:40→19:53)
[2019-04-02] MEDS: SODIUM HYPOCHLORITE, DAKIN'S 1/2 STRENGTH (0.25%) 473 ML TOPICAL SOLN TP SCH ×2 (05:00→10:42)
[2019-04-02] MEDS: IPRATROPIUM/ALBUTEROL SULFATE 3 ML AMPUL.NEB IH SCH ×3 (07:21→21:24)
--- NOTE | 2019-04-02 09:51 | Progress Note ---
Subjective Principal diagnosis: respiratory failure Interval history: Patient was seen today for follow-up of multiple renal related issues On hemodialysis, MWF Dialysis access has been working well Events of 24 hours vitals labs intake output medications were reviewed Past medical history: Reviewed Family history: Reviewed Social history: Reviewed Allergies: Reviewed Physical examination: Vitals: Reviewed HEENT:mild pallor or icterus oral mucosa moist Neck: Supple no JVD no thyromegaly Chest: Bilateral clear to auscultation anteriorly Heart: Regular rate and rhythm S1-S2 heard no S3-S4 Abdomen: Soft nontender no voluntary guarding rigidity rebound Extremity: Dry skin less than 1+ peripheral edema AV access: Has good flow Psychiatric: No evidence of agitation and aggression noted Overall patient appears to be ill appearing Labs and x-rays: Reviewed from today Assessment and plan ESRD: Patient will continue with hemodialysis treatment Saturday, Saturday and Saturday Ultrafiltration only as tolerated on hemodialysis Continue to monitor dialysis related labs periodically Prognosis long-term very poor due to dialysis and multiple comorbidities Mortality risk, in my opinion both short and long-term both are high Multiple other comorbidities including pneumonia, status post tracheotomy, cardiomyopathy ejection fraction 35-40%, history of CVA, atrial fibrillation, decubitus ulceration Continue with supportive care We'll continue to follow and make recommendation for renal standpoint Objective - Vital Signs Vital signs: Vital Signs - 12hr 04/01/19 04/01/19 04/02/19 22:00 23:00 00:00 Temperature 98.5 F Pulse Rate 100 H 89 88 Pulse Rate [ Anterior Bilateral Throughout] Respiratory Rate Respiratory Rate [Anterior Bilateral Throughout] Blood Pressure 107/59 112/62 117/66 O2 Sat by Pulse 100 100 100 Oximetry O2 Sat by Pulse Oximetry [ Assessment] 04/02/19 04/02/19 04/02/19 01:00 02:00 03:00 Temperature Pulse Rate 86 88 90 Pulse Rate [ Anterior Bilateral Throughout] Respiratory Rate Respiratory Rate [Anterior Bilateral Throughout] Blood Pressure 103/63 117/74 117/68 O2 Sat by Pulse 100 99 98 Oximetry O2 Sat by Pulse Oximetry [ Assessment] 04/02/19 04/02/19 04/02/19 04:00 04:01 05:00 Temperature 98.4 F Pulse Rate 101 H 91 H Pulse Rate [ Anterior Bilateral Throughout] Respiratory 22 Rate Respiratory Rate [Anterior Bilateral Throughout] Blood Pressure 116/67 108/67 O2 Sat by Pulse 96 100 Oximetry O2 Sat by Pulse Oximetry [ Assessment] 04/02/19 04/02/19 04/02/19 06:00 07:01 07:54 Temperature Pulse Rate 86 94 H Pulse Rate [ 93 H Anterior Bilateral Throughout] Respiratory 16 12 Rate Respiratory 18 Rate [Anterior Bilateral Throughout] Blood Pressure 116/58 103/61 O2 Sat by Pulse 99 100 Oximetry O2 Sat by Pulse Oximetry [ Assessment] 04/02/19 04/02/19 04/02/19 07:55 07:56 08:00 Temperature 98.8 F Pulse Rate Pulse Rate [ Anterior Bilateral Throughout] Respiratory Rate Respiratory Rate [Anterior Bilateral Throughout] Blood Pressure O2 Sat by Pulse 100 Oximetry O2 Sat by Pulse 98 Oximetry [ Assessment] - Lab 03/31/19 10:26 03/31/19 10:26 Most recent lab results ABG pH 7.424 pH Units (7.350-7.450) 03/19/19 04:23 ABG pCO2 48.0 mm Hg 03/19/19 04:23 ABG pO2 78.3 mm Hg (80.0-90.0) L 03/19/19 04:23 ABG HCO3 30.7 mmol/L (20.0-26.0) H 03/19/19 04:23 ABG O2 Saturation 97.0 % (95.0-99.0) 03/19/19 04:23 Calcium 10.3 mg/dL (8.4-10.2) H 03/31/19 10:26 Phosphorus 4.30 mg/dL (2.5-4.5) D 03/31/19 10:26 Magnesium 2.70 mg/dL (1.7-2.3) H 03/30/19 10:13 Medications & Allergies - Medications Allergies/Adverse Reactions: Allergies haloperidol [From Haldol] Adverse Reaction (Verified 03/13/18 12:10) Unknown haloperidol lactate [From Haldol] Adverse Reaction (Verified 03/13/18 12:10) Unknown Home Medications: Home Medications Medication Instructions Recorded Confirmed Last Taken Type risperiDONE [RisperDAL] 1 mg PO QAM 03/13/18 02/21/19 Unknown History Sertraline [Zoloft] 100 mg PO QDAY 08/26/18 02/21/19 Unknown History Polyethylene Glycol 3350 [Miralax 17 gm PO QDAY #30 packet 11/05/18 02/21/19 Unknown Rx 3350] Aspirin EC [Halfprin EC] 81 mg PO DAILY #30 11/19/18 02/21/19 Unknown Rx Docusate Sodium [Colace CAP] 100 mg PO BID #60 11/19/18 02/21/19 Unknown Rx Folic Acid [Folvite] 1 mg PO DAILY #30 tab 11/19/18 02/21/19 Unknown Rx Famotidine [Pepcid] 20 mg PO DAILY tablet 12/08/18 02/21/19 Unknown Rx Gabapentin [Neurontin] 100 mg PO QHS capsule 12/08/18 02/21/19 Unknown Rx Metoprolol [Lopressor TAB] 50 mg PO BID 30 Days tablet 12/08/18 02/21/19 Unknown Rx Sevelamer Carbonate [Renvela] 800 mg PO TIDWM tablet 12/08/18 02/21/19 Unknown Rx hydrALAZINE [Apresoline TAB] 100 mg PO Q8HR #120 tablet 12/08/18 02/21/19 Unknown Rx Acetaminophen [Acetaminophen TAB] 650 mg PO Q12H PRN 12/15/18 02/21/19 Unknown History Glucagon,Human Recombinant 1 mg IJ Q15MIN PRN 12/15/18 02/21/19 Unknown History [Glucagon Emergency Kit] Insulin Aspart [NovoLOG 100 See Protocol SQ QWEEK 12/15/18 02/21/19 Unknown History UNITS/ML VIAL] Active Medications: Generic Name Dose Route Start Last Admin Trade Name Freq PRN Reason Stop Dose Admin Albuterol/Ipratropium 1 ampul 02/24/19 20:00 04/02/19 07:21 Duoneb *Not For Prn Use* IH 1 ampul TIDRT SANCHEZ Administration Lipase/Protease/Amylase 1 each 03/05/19 14:04 Pancrejewel Barrientos 10,500 Unit FEEDTUBE PRN PRN For Clogged Feeding Tube Epoetin Solitario 20,000 unit 03/24/19 11:17 04/01/19 09:51 Procrit IV 20,000 unit UMA PRN Administration hemodialysis Famotidine 20 mg 02/23/19 10:00 04/01/19 11:25 Pepcid PO 20 mg DAILY SANCHEZ Administration Heparin Sodium (Porcine) 5,000 unit 03/04/19 22:00 04/01/19 22:34 Heparin SUB-Q 5,000 unit Q12HR SANCHEZ Administration Hydrophilic Ointment 1 applic 02/21/19 18:24 03/05/19 08:16 Vaseline Lip Therapy TP 1 applic Q2HR PRN Administration Dry Lips Sodium Chloride 100 mls @ 999 mls/hr 02/26/19 09:00 Nacl 0.9% IV UMA PRN Hypotension Insulin Human Regular 0 units 02/26/19 12:00 04/02/19 00:40 Humulin R SUB-Q Not Given Q6HR [facility] Protocol Metoprolol Tartrate 2.5 mg 02/28/19 12:06 03/15/19 05:15 Lopressor IV 2.5 mg Q4HR PRN Administration Tachycardia Multi-Ingred Cream/Lotion/Oil/Oint 1 applic 02/21/19 18:24 03/29/19 21:40 Artificial Tears Ophth Oint OU 1 applic Q4HR PRN Administration Dry Eye(s) Risperidone 1 mg 02/25/19 13:00 04/01/19 11:25 Risperdal PO 1 mg DAILY SANCHEZ Administration Scopolamine 1 each 03/13/19 04:00 03/31/19 03:31 Transderm-Scop TD 1 each Q3D SANCHEZ Administration Sertraline HCl 100 mg 02/25/19 13:00 04/01/19 11:25 Zoloft PO 100 mg DAILY SANCHEZ Administration Simple Syrup 15 ml 03/05/19 14:04 Simple Syrup FEEDTUBE PRN PRN Hypoglycemia Simple Syrup 30 ml 03/05/19 14:04 Simple Syrup FEEDTUBE PRN PRN Hypoglycemia Sodium Bicarbonate 325 mg 03/05/19 14:04 Sodium Bicarbonate FEEDTUBE PRN PRN For Clogged Feeding Tube Sodium Hypochlorite 1 applic 04/01/19 13:00 04/02/19 05:00 Dakin's Half Strength TP 1 applicatio BID SANCHEZ Administration Tramadol HCl 50 mg 03/05/19 10:08 04/01/19 05:42 Ultram PO 50 mg Q6H PRN Administration Pain, Moderate (4-6)
--- NOTE | 2019-04-02 10:10 | Progress Note ---
Assessment and Plan 63 y/o male with multiple medical issues admitted with altered mental status, acute respiratory failure requiring mechanical ventilation No new recommendations for today. Please see below. 1. Finished therapy for Acinetobacter. 2. Continue T-piece 3. HD per renal 4. Awaiting placement. Subjective Date of service: 04/02/19 Principal diagnosis: respiratory failure Interval history: No acute events. Pulm status is unchanged. Objective Vital Signs - 12hr 04/01/19 04/02/19 04/02/19 23:00 00:00 01:00 Temperature 98.5 F Pulse Rate 89 88 86 Pulse Rate [ Anterior Bilateral Throughout] Respiratory Rate Respiratory Rate [Anterior Bilateral Throughout] Blood Pressure 112/62 117/66 103/63 O2 Sat by Pulse 100 100 100 Oximetry O2 Sat by Pulse Oximetry [ Assessment] 04/02/19 04/02/19 04/02/19 02:00 03:00 04:00 Temperature 98.4 F Pulse Rate 88 90 Pulse Rate [ Anterior Bilateral Throughout] Respiratory Rate Respiratory Rate [Anterior Bilateral Throughout] Blood Pressure 117/74 117/68 O2 Sat by Pulse 99 98 Oximetry O2 Sat by Pulse Oximetry [ Assessment] 04/02/19 04/02/19 04/02/19 04:01 05:00 06:00 Temperature Pulse Rate 101 H 91 H 86 Pulse Rate [ Anterior Bilateral Throughout] Respiratory 22 16 Rate Respiratory Rate [Anterior Bilateral Throughout] Blood Pressure 116/67 108/67 116/58 O2 Sat by Pulse 96 100 99 Oximetry O2 Sat by Pulse Oximetry [ Assessment] 04/02/19 04/02/19 04/02/19 07:01 07:54 07:55 Temperature Pulse Rate 94 H Pulse Rate [ 93 H Anterior Bilateral Throughout] Respiratory 12 Rate Respiratory 18 Rate [Anterior Bilateral Throughout] Blood Pressure 103/61 O2 Sat by Pulse 100 Oximetry O2 Sat by Pulse 98 Oximetry [ Assessment] 04/02/19 04/02/19 07:56 08:00 Temperature 98.8 F Pulse Rate Pulse Rate [ Anterior Bilateral Throughout] Respiratory Rate Respiratory Rate [Anterior Bilateral Throughout] Blood Pressure O2 Sat by Pulse 100 Oximetry O2 Sat by Pulse Oximetry [ Assessment] Constitutional: no acute distress, alert Eyes: non-icteric ENT: oropharynx moist Neck: supple Effort: normal Ascultation: Bilateral: diminished breath sounds, other (coarse BS bilaterally) Percussion: Bilateral: not dull Cardiovascular: other (tachy, RR; no mrg) Gastrointestinal: normoactive bowel sounds, soft, non-tender, non-distended, other (ostomy in place, brown stool) Extremities: no cyanosis, no edema, pink and warm Neurologic: other (mild weakness LUE, o/w nonfocal) Psychiatric: other (unable to assess) CBC and BMP: 03/31/19 10:26 03/31/19 10:26 ABG, PT/INR, D-dimer: ABG POC ABG pH 7.510 (7.35-7.45) H 03/18/19 06:38 ABG pH 7.424 pH Units (7.350-7.450) 03/19/19 04:23 POC ABG pCO2 38.9 (35-45) 03/18/19 06:38 ABG pCO2 48.0 mm Hg 03/19/19 04:23 POC ABG pO2 164 (80-105) H 03/18/19 06:38 ABG pO2 78.3 mm Hg (80.0-90.0) L 03/19/19 04:23 POC ABG HCO3 31.0 (22-26 mml/L) 03/18/19 06:38 POC ABG Total CO2 32 (23-27mmol/L) 03/18/19 06:38 POC ABG O2 Sat 100 03/18/19 06:38 ABG O2 Saturation 97.0 % (95.0-99.0) 03/19/19 04:23 PT/INR, D-dimer PT 16.3 Sec. (12.2-14.9) H 03/01/19 09:39 INR 1.35 (0.87-1.13) H 03/01/19 09:39 2987.82 ng/mlDDU (0-234) H 02/22/19 05:54 Abnormal lab findings: Abnormal Labs 02/21/19 02/21/19 02/21/19 18:30 18:30 18:30 WBC RBC 3.26 L Hgb 8.8 L Hct 29.0 L MCH 27 L MCHC 30 L RDW 19.1 H Lymph % (Auto) 6.1 L [place] % (Auto) Eos % (Auto) Lymph # 0.4 L [place] # Eos # Seg Neutrophils % 86.2 H Seg Neuts % (Manual) Lymphocytes % (Manual) Eosinophils % (Manual) Seg Neutrophils # Lymphocytes # (Manual) Eosinophils # (Manual) PT INR D-Dimer POC ABG pH POC ABG pCO2 POC ABG pO2 ABG pO2 ABG HCO3 ABG Base Excess ABG Hemoglobin Oxyhemoglobin Sodium 133 L Potassium 3.3 L Chloride 93.1 L Carbon Dioxide 33 H BUN Creatinine Glucose 161 H POC Glucose Calcium Phosphorus Magnesium ALT Alkaline Phosphatase 136 H Total Creatine Kinase 37 L CK-MB (CK-2) Rel Index Troponin T 0.192 H* Albumin 2.4 L LDL Cholesterol Direct 36 L PTH Intact Salicylates Acetaminophen Crossmatch 02/21/19 02/21/19 02/21/19 18:42 20:04 20:04 WBC RBC Hgb Hct MCH MCHC RDW Lymph % (Auto) [place] % (Auto) Eos % (Auto) Lymph # [place] # Eos # Seg Neutrophils % Seg Neuts % (Manual) Lymphocytes % (Manual) Eosinophils % (Manual) Seg Neutrophils # Lymphocytes # (Manual) Eosinophils # (Manual) PT INR D-Dimer POC ABG pH POC ABG pCO2 56.7 H POC ABG pO2 291 H ABG pO2 ABG HCO3 ABG Base Excess ABG Hemoglobin Oxyhemoglobin Sodium Potassium Chloride Carbon Dioxide BUN Creatinine Glucose POC Glucose Calcium Phosphorus Magnesium ALT Alkaline Phosphatase Total Creatine Kinase CK-MB (CK-2) Rel Index Troponin T Albumin LDL Cholesterol Direct PTH Intact Salicylates < 0.3 L Acetaminophen < 5.0 L Crossmatch 02/21/19 02/22/19 02/22/19 22:35 03:42 03:42 WBC RBC 3.20 L Hgb 8.8 L Hct 27.6 L MCH MCHC RDW 18.9 H Lymph % (Auto) 7.4 L [place] % (Auto) Eos % (Auto) Lymph # 0.7 L [place] # Eos # Seg Neutrophils % 84.7 H Seg Neuts % (Manual) Lymphocytes % (Manual) Eosinophils % (Manual) Seg Neutrophils # Lymphocytes # (Manual) Eosinophils # (Manual) PT INR D-Dimer POC ABG pH POC ABG pCO2 POC ABG pO2 ABG pO2 ABG HCO3 ABG Base Excess ABG Hemoglobin Oxyhemoglobin Sodium 134 L Potassium 2.6 L* D Chloride Carbon Dioxide BUN Creatinine Glucose POC Glucose Calcium Phosphorus Magnesium ALT Alkaline Phosphatase Total Creatine Kinase CK-MB (CK-2) Rel Index 5.2 H Troponin T 0.202 H* Albumin LDL Cholesterol Direct PTH Intact Salicylates Acetaminophen Crossmatch 02/22/19 02/22/19 02/22/19 03:42 05:54 09:04 WBC RBC Hgb Hct MCH MCHC RDW Lymph % (Auto) [place] % (Auto) Eos % (Auto) Lymph # [place] # Eos # Seg Neutrophils % Seg Neuts % (Manual) Lymphocytes % (Manual) Eosinophils % (Manual) Seg Neutrophils # Lymphocytes # (Manual) Eosinophils # (Manual) PT INR D-Dimer 2987.82 H POC ABG pH 7.451 H POC ABG pCO2 POC ABG pO2 ABG pO2 ABG HCO3 ABG Base Excess ABG Hemoglobin Oxyhemoglobin Sodium Potassium Chloride Carbon Dioxide BUN Creatinine Glucose POC Glucose Calcium Phosphorus Magnesium ALT Alkaline Phosphatase Total Creatine Kinase CK-MB (CK-2) Rel Index 5.7 H Troponin T 0.193 H* Albumin LDL Cholesterol Direct PTH Intact Salicylates Acetaminophen Crossmatch 02/22/19 02/22/19 02/23/19 10:36 23:56 00:52 WBC RBC Hgb Hct MCH MCHC RDW Lymph % (Auto) [place] % (Auto) Eos % (Auto) Lymph # [place] # Eos # Seg Neutrophils % Seg Neuts % (Manual) Lymphocytes % (Manual) Eosinophils % (Manual) Seg Neutrophils # Lymphocytes # (Manual) Eosinophils # (Manual) PT INR D-Dimer POC ABG pH POC ABG pCO2 POC ABG pO2 ABG pO2 ABG HCO3 ABG Base Excess ABG Hemoglobin Oxyhemoglobin Sodium Potassium 3.1 L Chloride Carbon Dioxide BUN Creatinine Glucose POC Glucose 58 L 111 H Calcium Phosphorus Magnesium ALT Alkaline Phosphatase Total Creatine Kinase CK-MB (CK-2) Rel Index Troponin T Albumin LDL Cholesterol Direct PTH Intact Salicylates Acetaminophen Crossmatch 02/23/19 02/23/19 02/23/19 05:00 06:35 14:26 WBC RBC Hgb Hct MCH MCHC RDW Lymph % (Auto) [place] % (Auto) Eos % (Auto) Lymph # [place] # Eos # Seg Neutrophils % Seg Neuts % (Manual) Lymphocytes % (Manual) Eosinophils % (Manual) Seg Neutrophils # Lymphocytes # (Manual) Eosinophils # (Manual) PT INR D-Dimer POC ABG pH POC ABG pCO2 POC ABG pO2 ABG pO2 ABG HCO3 ABG Base Excess ABG Hemoglobin Oxyhemoglobin Sodium 135 L Potassium 3.1 L Chloride Carbon Dioxide BUN 21 H Creatinine 2.0 H Glucose 57 L POC Glucose 64 L 62 L Calcium Phosphorus Magnesium ALT Alkaline Phosphatase Total Creatine Kinase CK-MB (CK-2) Rel Index Troponin T Albumin LDL Cholesterol Direct PTH Intact Salicylates Acetaminophen Crossmatch 02/24/19 02/24/19 02/24/19 02:11 04:12 04:55 WBC RBC 2.84 L Hgb 7.8 L Hct 24.5 L MCH MCHC RDW 19.5 H Lymph % (Auto) [place] % (Auto) Eos % (Auto) Lymph # [place] # Eos # Seg Neutrophils % Seg Neuts % (Manual) Lymphocytes % (Manual) Eosinophils % (Manual) Seg Neutrophils # Lymphocytes # (Manual) Eosinophils # (Manual) PT INR D-Dimer POC ABG pH 7.511 H POC ABG pCO2 33.9 L POC ABG pO2 62 L ABG pO2 ABG HCO3 ABG Base Excess ABG Hemoglobin Oxyhemoglobin Sodium Potassium Chloride Carbon Dioxide BUN Creatinine Glucose POC Glucose 69 L Calcium Phosphorus Magnesium ALT Alkaline Phosphatase Total Creatine Kinase CK-MB (CK-2) Rel Index Troponin T Albumin LDL Cholesterol Direct PTH Intact Salicylates Acetaminophen Crossmatch 02/24/19 02/24/19 02/25/19 04:55 05:41 04:45 WBC RBC Hgb Hct MCH MCHC RDW Lymph % (Auto) [place] % (Auto) Eos % (Auto) Lymph # [place] # Eos # Seg Neutrophils % Seg Neuts % (Manual) Lymphocytes % (Manual) Eosinophils % (Manual) Seg Neutrophils # Lymphocytes # (Manual) Eosinophils # (Manual) PT INR D-Dimer POC ABG pH 7.466 H POC ABG pCO2 POC ABG pO2 75 L ABG pO2 ABG HCO3 ABG Base Excess ABG Hemoglobin Oxyhemoglobin Sodium Potassium Chloride Carbon Dioxide BUN Creatinine 1.8 H Glucose 73 L POC Glucose 127 H Calcium Phosphorus Magnesium ALT Alkaline Phosphatase Total Creatine Kinase CK-MB (CK-2) Rel Index Troponin T Albumin LDL Cholesterol Direct PTH Intact Salicylates Acetaminophen Crossmatch 02/25/19 02/25/19 02/26/19 16:34 21:33 03:45 WBC RBC 2.96 L Hgb 8.0 L Hct 25.8 L MCH 27 L MCHC 31 L RDW 20.0 H Lymph % (Auto) [place] % (Auto) Eos % (Auto) Lymph # [place] # Eos # Seg Neutrophils % Seg Neuts % (Manual) Lymphocytes % (Manual) Eosinophils % (Manual) Seg Neutrophils # Lymphocytes # (Manual) Eosinophils # (Manual) PT INR D-Dimer POC ABG pH POC ABG pCO2 POC ABG pO2 ABG pO2 ABG HCO3 ABG Base Excess ABG Hemoglobin Oxyhemoglobin Sodium Potassium Chloride Carbon Dioxide BUN Creatinine Glucose POC Glucose 141 H 106 H Calcium Phosphorus Magnesium ALT Alkaline Phosphatase Total Creatine Kinase CK-MB (CK-2) Rel Index Troponin T Albumin LDL Cholesterol Direct PTH Intact Salicylates Acetaminophen Crossmatch 02/26/19 02/26/19 02/26/19 03:45 04:13 07:53 WBC RBC Hgb Hct MCH MCHC RDW Lymph % (Auto) [place] % (Auto) Eos % (Auto) Lymph # [place] # Eos # Seg Neutrophils % Seg Neuts % (Manual) Lymphocytes % (Manual) Eosinophils % (Manual) Seg Neutrophils # Lymphocytes # (Manual) Eosinophils # (Manual) PT INR D-Dimer POC ABG pH 7.470 H POC ABG pCO2 POC ABG pO2 ABG pO2 ABG HCO3 ABG Base Excess ABG Hemoglobin Oxyhemoglobin Sodium Potassium Chloride Carbon Dioxide BUN Creatinine 1.8 H Glucose POC Glucose 110 H Calcium Phosphorus Magnesium ALT Alkaline Phosphatase Total Creatine Kinase CK-MB (CK-2) Rel Index Troponin T Albumin LDL Cholesterol Direct PTH Intact Salicylates Acetaminophen Crossmatch 02/26/19 02/26/19 02/27/19 11:56 17:43 00:12 WBC RBC Hgb Hct MCH MCHC RDW Lymph % (Auto) [place] % (Auto) Eos % (Auto) Lymph # [place] # Eos # Seg Neutrophils % Seg Neuts % (Manual) Lymphocytes % (Manual) Eosinophils % (Manual) Seg Neutrophils # Lymphocytes # (Manual) Eosinophils # (Manual) PT INR D-Dimer POC ABG pH POC ABG pCO2 POC ABG pO2 ABG pO2 ABG HCO3 ABG Base Excess ABG Hemoglobin Oxyhemoglobin Sodium Potassium Chloride Carbon Dioxide BUN Creatinine Glucose POC Glucose 112 H 127 H 127 H Calcium Phosphorus Magnesium ALT Alkaline Phosphatase Total Creatine Kinase CK-MB (CK-2) Rel Index Troponin T Albumin LDL Cholesterol Direct PTH Intact Salicylates Acetaminophen Crossmatch 02/27/19 02/27/19 02/27/19 04:35 13:15 18:02 WBC RBC Hgb Hct MCH MCHC RDW Lymph % (Auto) [place] % (Auto) Eos % (Auto) Lymph # [place] # Eos # Seg Neutrophils % Seg Neuts % (Manual) Lymphocytes % (Manual) Eosinophils % (Manual) Seg Neutrophils # Lymphocytes # (Manual) Eosinophils # (Manual) PT INR D-Dimer POC ABG pH 7.483 H POC ABG pCO2 POC ABG pO2 61 L ABG pO2 ABG HCO3 ABG Base Excess ABG Hemoglobin Oxyhemoglobin Sodium Potassium Chloride Carbon Dioxide BUN Creatinine Glucose POC Glucose 143 H 106 H Calcium Phosphorus Magnesium ALT Alkaline Phosphatase Total Creatine Kinase CK-MB (CK-2) Rel Index Troponin T Albumin LDL Cholesterol Direct PTH Intact Salicylates Acetaminophen Crossmatch 02/28/19 02/28/19 02/28/19 05:50 11:59 17:52 WBC RBC Hgb Hct MCH MCHC RDW Lymph % (Auto) [place] % (Auto) Eos % (Auto) Lymph # [place] # Eos # Seg Neutrophils % Seg Neuts % (Manual) Lymphocytes % (Manual) Eosinophils % (Manual) Seg Neutrophils # Lymphocytes # (Manual) Eosinophils # (Manual) PT INR D-Dimer POC ABG pH POC ABG pCO2 POC ABG pO2 ABG pO2 ABG HCO3 ABG Base Excess ABG Hemoglobin Oxyhemoglobin Sodium Potassium Chloride Carbon Dioxide BUN Creatinine Glucose POC Glucose 134 H 128 H 142 H Calcium Phosphorus Magnesium ALT Alkaline Phosphatase Total Creatine Kinase CK-MB (CK-2) Rel Index Troponin T Albumin LDL Cholesterol Direct PTH Intact Salicylates Acetaminophen Crossmatch 02/28/19 03/01/19 03/01/19 23:13 05:40 09:39 WBC RBC Hgb Hct MCH MCHC RDW Lymph % (Auto) [place] % (Auto) Eos % (Auto) Lymph # [place] # Eos # Seg Neutrophils % Seg Neuts % (Manual) Lymphocytes % (Manual) Eosinophils % (Manual) Seg Neutrophils # Lymphocytes # (Manual) Eosinophils # (Manual) PT 16.3 H INR 1.35 H D-Dimer POC ABG pH POC ABG pCO2 POC ABG pO2 ABG pO2 ABG HCO3 ABG Base Excess ABG Hemoglobin Oxyhemoglobin Sodium Potassium Chloride Carbon Dioxide BUN Creatinine Glucose POC Glucose 112 H 111 H Calcium Phosphorus Magnesium ALT Alkaline Phosphatase Total Creatine Kinase CK-MB (CK-2) Rel Index Troponin T Albumin LDL Cholesterol Direct PTH Intact Salicylates Acetaminophen Crossmatch 03/01/19 03/01/1903/01/19 11:56 13:54 17:59 WBC RBC Hgb Hct MCH MCHC RDW Lymph % (Auto) [place] % (Auto) Eos % (Auto) Lymph # [place] # Eos # Seg Neutrophils % Seg Neuts % (Manual) Lymphocytes % (Manual) Eosinophils % (Manual) Seg Neutrophils # Lymphocytes # (Manual) Eosinophils # (Manual) PT INR D-Dimer POC ABG pH POC ABG pCO2 POC ABG pO2 ABG pO2 ABG HCO3 ABG Base Excess ABG Hemoglobin Oxyhemoglobin Sodium Potassium Chloride Carbon Dioxide BUN 33 H Creatinine 2.8 H D Glucose 176 H POC Glucose 199 H 147 H Calcium Phosphorus Magnesium ALT Alkaline Phosphatase Total Creatine Kinase CK-MB (CK-2) Rel Index Troponin T Albumin LDL Cholesterol Direct PTH Intact Salicylates Acetaminophen Crossmatch 03/02/19 03/02/19 03/02/19 05:15 05:15 05:15 WBC RBC 2.73 L Hgb 7.4 L Hct 23.0 L MCH 27 L MCHC RDW 19.9 H Lymph % (Auto) [place] % (Auto) 7.9 H Eos % (Auto) 7.6 H Lymph # 1.0 L [place] # Eos # 0.5 H Seg Neutrophils % Seg Neuts % (Manual) Lymphocytes % (Manual) Eosinophils % (Manual) Seg Neutrophils # Lymphocytes # (Manual) Eosinophils # (Manual) PT INR D-Dimer POC ABG pH POC ABG pCO2 POC ABG pO2 ABG pO2 ABG HCO3 ABG Base Excess ABG Hemoglobin Oxyhemoglobin Sodium Potassium Chloride Carbon Dioxide BUN 43 H Creatinine 3.2 H Glucose POC Glucose Calcium Phosphorus 2.30 L Magnesium ALT Alkaline Phosphatase Total Creatine Kinase CK-MB (CK-2) Rel Index Troponin T Albumin LDL Cholesterol Direct PTH Intact 267.6 H Salicylates Acetaminophen Crossmatch 03/02/19 03/02/19 03/03/19 12:32 18:20 13:30 WBC RBC Hgb Hct MCH MCHC RDW Lymph % (Auto) [place] % (Auto) Eos % (Auto) Lymph # [place] # Eos # Seg Neutrophils % Seg Neuts % (Manual) Lymphocytes % (Manual) Eosinophils % (Manual) Seg Neutrophils # Lymphocytes # (Manual) Eosinophils # (Manual) PT INR D-Dimer POC ABG pH POC ABG pCO2 POC ABG pO2 ABG pO2 ABG HCO3 ABG Base Excess ABG Hemoglobin Oxyhemoglobin Sodium Potassium Chloride 97.3 L Carbon Dioxide BUN 26 H Creatinine 2.2 H Glucose 73 L POC Glucose 111 H 156 H Calcium Phosphorus Magnesium ALT Alkaline Phosphatase Total Creatine Kinase CK-MB (CK-2) Rel Index Troponin T Albumin LDL Cholesterol Direct PTH Intact Salicylates Acetaminophen Crossmatch 03/04/19 03/04/19 03/04/19 00:02 05:37 05:40 WBC RBC 2.63 L Hgb 7.2 L Hct 22.2 L MCH MCHC RDW 20.2 H Lymph % (Auto) 10.5 L [place] % (Auto) Eos % (Auto) 4.6 H Lymph # 0.7 L [place] # Eos # Seg Neutrophils % 76.9 H Seg Neuts % (Manual) Lymphocytes % (Manual) Eosinophils % (Manual) Seg Neutrophils # Lymphocytes # (Manual) Eosinophils # (Manual) PT INR D-Dimer POC ABG pH POC ABG pCO2 POC ABG pO2 ABG pO2 ABG HCO3 ABG Base Excess ABG Hemoglobin Oxyhemoglobin Sodium Potassium Chloride Carbon Dioxide BUN Creatinine Glucose POC Glucose 136 H 123 H Calcium Phosphorus Magnesium ALT Alkaline Phosphatase Total Creatine Kinase CK-MB (CK-2) Rel Index Troponin T Albumin LDL Cholesterol Direct PTH Intact Salicylates Acetaminophen Crossmatch 03/04/19 03/04/19 03/04/19 05:40 11:39 23:20 WBC RBC Hgb Hct MCH MCHC RDW Lymph % (Auto) [place] % (Auto) Eos % (Auto) Lymph # [place] # Eos # Seg Neutrophils % Seg Neuts % (Manual) Lymphocytes % (Manual) Eosinophils % (Manual) Seg Neutrophils # Lymphocytes # (Manual) Eosinophils # (Manual) PT INR D-Dimer POC ABG pH POC ABG pCO2 POC ABG pO2 ABG pO2 ABG HCO3 ABG Base Excess ABG Hemoglobin Oxyhemoglobin Sodium Potassium Chloride Carbon Dioxide BUN 34 H Creatinine 2.7 H Glucose 114 H POC Glucose 175 H 151 H Calcium Phosphorus Magnesium ALT Alkaline Phosphatase Total Creatine Kinase CK-MB (CK-2) Rel Index Troponin T Albumin LDL Cholesterol Direct PTH Intact Salicylates Acetaminophen Crossmatch 03/05/19 03/05/19 03/05/19 05:37 12:08 17:11 WBC RBC Hgb Hct MCH MCHC RDW Lymph % (Auto) [place] % (Auto) Eos % (Auto) Lymph # [place] # Eos # Seg Neutrophils % Seg Neuts % (Manual) Lymphocytes % (Manual) Eosinophils % (Manual) Seg Neutrophils # Lymphocytes # (Manual) Eosinophils # (Manual) PT INR D-Dimer POC ABG pH POC ABG pCO2 POC ABG pO2 ABG pO2 ABG HCO3 ABG Base Excess ABG Hemoglobin Oxyhemoglobin Sodium Potassium Chloride Carbon Dioxide BUN Creatinine Glucose POC Glucose 134 H 135 H 135 H Calcium Phosphorus Magnesium ALT Alkaline Phosphatase Total Creatine Kinase CK-MB (CK-2) Rel Index Troponin T Albumin LDL Cholesterol Direct PTH Intact Salicylates Acetaminophen Crossmatch 03/06/19 03/06/19 03/06/19 00:16 13:05 18:09 WBC RBC Hgb Hct MCH MCHC RDW Lymph % (Auto) [place] % (Auto) Eos % (Auto) Lymph # [place] # Eos # Seg Neutrophils % Seg Neuts % (Manual) Lymphocytes % (Manual) Eosinophils % (Manual) Seg Neutrophils # Lymphocytes # (Manual) Eosinophils # (Manual) PT INR D-Dimer POC ABG pH POC ABG pCO2 POC ABG pO2 ABG pO2 ABG HCO3 ABG Base Excess ABG Hemoglobin Oxyhemoglobin Sodium Potassium Chloride Carbon Dioxide BUN Creatinine Glucose POC Glucose 117 H 113 H 131 H Calcium Phosphorus Magnesium ALT Alkaline Phosphatase Total Creatine Kinase CK-MB (CK-2) Rel Index Troponin T Albumin LDL Cholesterol Direct PTH Intact Salicylates Acetaminophen Crossmatch 03/07/19 03/08/19 03/08/19 05:25 05:33 16:00 WBC RBC 2.44 L Hgb 6.6 L Hct 20.8 L MCH 27 L MCHC RDW 19.2 H Lymph % (Auto) [place] % (Auto) Eos % (Auto) 8.6 H Lymph # 0.8 L [place] # Eos # 0.5 H Seg Neutrophils % 70.7 H Seg Neuts % (Manual) Lymphocytes % (Manual) Eosinophils % (Manual) Seg Neutrophils # Lymphocytes # (Manual) Eosinophils # (Manual) PT INR D-Dimer POC ABG pH POC ABG pCO2 POC ABG pO2 ABG pO2 ABG HCO3 ABG Base Excess ABG Hemoglobin Oxyhemoglobin Sodium Potassium Chloride Carbon Dioxide BUN Creatinine Glucose POC Glucose 106 H 108 H Calcium Phosphorus Magnesium ALT Alkaline Phosphatase Total Creatine Kinase CK-MB (CK-2) Rel Index Troponin T Albumin LDL Cholesterol Direct PTH Intact Salicylates Acetaminophen Crossmatch 03/08/19 03/08/19 03/08/19 16:00 18:38 Unknown WBC RBC Hgb Hct MCH MCHC RDW Lymph % (Auto) [place] % (Auto) Eos % (Auto) Lymph # [place] # Eos # Seg Neutrophils % Seg Neuts % (Manual) Lymphocytes % (Manual) Eosinophils % (Manual) Seg Neutrophils # Lymphocytes # (Manual) Eosinophils # (Manual) PT INR D-Dimer POC ABG pH POC ABG pCO2 POC ABG pO2 ABG pO2 ABG HCO3 ABG Base Excess ABG Hemoglobin Oxyhemoglobin Sodium Potassium 5.4 H D Chloride Carbon Dioxide BUN 47 H Creatinine 2.6 H Glucose POC Glucose 123 H Calcium Phosphorus Magnesium ALT < 5 L Alkaline Phosphatase Total Creatine Kinase CK-MB (CK-2) Rel Index Troponin T Albumin 2.2 L LDL Cholesterol Direct PTH Intact Salicylates Acetaminophen Crossmatch See Detail 03/09/19 03/09/19 03/09/19 10:48 12:28 13:53 WBC RBC 2.85 L Hgb 7.7 L Hct 24.2 L MCH 27 L MCHC RDW 18.7 H Lymph % (Auto) [place] % (Auto) Eos % (Auto) Lymph # [place] # Eos # Seg Neutrophils % Seg Neuts % (Manual) Lymphocytes % (Manual) Eosinophils % (Manual) Seg Neutrophils # Lymphocytes # (Manual) Eosinophils # (Manual) PT INR D-Dimer POC ABG pH POC ABG pCO2 POC ABG pO2 ABG pO2 ABG HCO3 30.5 H ABG Base Excess 5.6 H ABG Hemoglobin 8.1 L Oxyhemoglobin 93.8 L Sodium Potassium Chloride Carbon Dioxide BUN Creatinine Glucose POC Glucose 114 H Calcium Phosphorus Magnesium ALT Alkaline Phosphatase Total Creatine Kinase CK-MB (CK-2) Rel Index Troponin T Albumin LDL Cholesterol Direct PTH Intact Salicylates Acetaminophen Crossmatch 03/09/19 03/09/19 03/10/19 17:58 23:53 12:01 WBC RBC Hgb Hct MCH MCHC RDW Lymph % (Auto) [place] % (Auto) Eos % (Auto) Lymph # [place] # Eos # Seg Neutrophils % Seg Neuts % (Manual) Lymphocytes % (Manual) Eosinophils % (Manual) Seg Neutrophils # Lymphocytes # (Manual) Eosinophils # (Manual) PT INR D-Dimer POC ABG pH POC ABG pCO2 POC ABG pO2 ABG pO2 ABG HCO3 ABG Base Excess ABG Hemoglobin Oxyhemoglobin Sodium Potassium Chloride Carbon Dioxide BUN Creatinine Glucose POC Glucose 108 H 128 H 144 H Calcium Phosphorus Magnesium ALT Alkaline Phosphatase Total Creatine Kinase CK-MB (CK-2) Rel Index Troponin T Albumin LDL Cholesterol Direct PTH Intact Salicylates Acetaminophen Crossmatch 03/10/19 03/11/19 03/11/19 16:50 00:24 05:02 WBC RBC Hgb Hct MCH MCHC RDW Lymph % (Auto) [place] % (Auto) Eos % (Auto) Lymph # [place] # Eos # Seg Neutrophils % Seg Neuts % (Manual) Lymphocytes % (Manual) Eosinophils % (Manual) Seg Neutrophils # Lymphocytes # (Manual) Eosinophils # (Manual) PT INR D-Dimer POC ABG pH POC ABG pCO2 POC ABG pO2 ABG pO2 ABG HCO3 ABG Base Excess ABG Hemoglobin Oxyhemoglobin Sodium Potassium Chloride Carbon Dioxide BUN Creatinine Glucose POC Glucose 147 H 123 H 120 H Calcium Phosphorus Magnesium ALT Alkaline Phosphatase Total Creatine Kinase CK-MB (CK-2) Rel Index Troponin T Albumin LDL Cholesterol Direct PTH Intact Salicylates Acetaminophen Crossmatch 03/11/19 03/11/19 03/11/19 11:56 12:20 18:37 WBC RBC Hgb Hct MCH MCHC RDW Lymph % (Auto) [place] % (Auto) Eos % (Auto) Lymph # [place] # Eos # Seg Neutrophils % Seg Neuts % (Manual) Lymphocytes % (Manual) Eosinophils % (Manual) Seg Neutrophils # Lymphocytes # (Manual) Eosinophils # (Manual) PT INR D-Dimer POC ABG pH POC ABG pCO2 POC ABG pO2 ABG pO2 ABG HCO3 ABG Base Excess ABG Hemoglobin Oxyhemoglobin Sodium Potassium 5.2 H Chloride Carbon Dioxide BUN Creatinine Glucose POC Glucose 123 H 125 H Calcium Phosphorus Magnesium ALT Alkaline Phosphatase Total Creatine Kinase CK-MB (CK-2) Rel Index Troponin T Albumin LDL Cholesterol Direct PTH Intact Salicylates Acetaminophen Crossmatch 03/11/19 03/12/19 03/12/19 22:52 12:04 18:25 WBC RBC Hgb Hct MCH MCHC RDW Lymph % (Auto) [place] % (Auto) Eos % (Auto) Lymph # [place] # Eos # Seg Neutrophils % Seg Neuts % (Manual) Lymphocytes % (Manual) Eosinophils % (Manual) Seg Neutrophils # Lymphocytes # (Manual) Eosinophils # (Manual) PT INR D-Dimer POC ABG pH POC ABG pCO2 POC ABG pO2 ABG pO2 ABG HCO3 ABG Base Excess ABG Hemoglobin Oxyhemoglobin Sodium Potassium Chloride Carbon Dioxide BUN Creatinine Glucose POC Glucose 110 H 106 H 118 H Calcium Phosphorus Magnesium ALT Alkaline Phosphatase Total Creatine Kinase CK-MB (CK-2) Rel Index Troponin T Albumin LDL Cholesterol Direct PTH Intact Salicylates Acetaminophen Crossmatch 03/12/19 03/13/19 03/13/19 23:36 04:38 04:38 WBC RBC 2.95 L Hgb 7.9 L Hct 24.9 L MCH 27 L MCHC RDW 19.9 H Lymph % (Auto) 11.1 L [place] % (Auto) 8.1 H Eos % (Auto) 4.4 H Lymph # 0.9 L [place] # Eos # Seg Neutrophils % 75.4 H Seg Neuts % (Manual) Lymphocytes % (Manual) Eosinophils % (Manual) Seg Neutrophils # Lymphocytes # (Manual) Eosinophils # (Manual) PT INR D-Dimer POC ABG pH POC ABG pCO2 POC ABG pO2 ABG pO2 ABG HCO3 ABG Base Excess ABG Hemoglobin Oxyhemoglobin Sodium 136 L Potassium 5.1 H Chloride 93.8 L Carbon Dioxide BUN 48 H Creatinine 2.7 H Glucose 102 H POC Glucose 115 H Calcium Phosphorus Magnesium ALT < 5 L Alkaline Phosphatase 143 H Total Creatine Kinase CK-MB (CK-2) Rel Index Troponin T Albumin 2.5 L LDL Cholesterol Direct PTH Intact Salicylates Acetaminophen Crossmatch 03/13/19 03/13/19 03/13/19 05:33 13:37 18:03 WBC RBC Hgb Hct MCH MCHC RDW Lymph % (Auto) [place] % (Auto) Eos % (Auto) Lymph # [place] # Eos # Seg Neutrophils % Seg Neuts % (Manual) Lymphocytes % (Manual) Eosinophils % (Manual) Seg Neutrophils # Lymphocytes # (Manual) Eosinophils # (Manual) PT INR D-Dimer POC ABG pH POC ABG pCO2 POC ABG pO2 ABG pO2 ABG HCO3 ABG Base Excess ABG Hemoglobin Oxyhemoglobin Sodium Potassium Chloride Carbon Dioxide BUN Creatinine Glucose POC Glucose 140 H 150 H 158 H Calcium Phosphorus Magnesium ALT Alkaline Phosphatase Total Creatine Kinase CK-MB (CK-2) Rel Index Troponin T Albumin LDL Cholesterol Direct PTH Intact Salicylates Acetaminophen Crossmatch 03/13/19 03/14/19 03/14/19 23:32 05:24 12:20 WBC RBC Hgb Hct MCH MCHC RDW Lymph % (Auto) [place] % (Auto) Eos % (Auto) Lymph # [place] # Eos # Seg Neutrophils % Seg Neuts % (Manual) Lymphocytes % (Manual) Eosinophils % (Manual) Seg Neutrophils # Lymphocytes # (Manual) Eosinophils # (Manual) PT INR D-Dimer POC ABG pH POC ABG pCO2 POC ABG pO2 ABG pO2 ABG HCO3 ABG Base Excess ABG Hemoglobin Oxyhemoglobin Sodium Potassium Chloride Carbon Dioxide BUN Creatinine Glucose POC Glucose 162 H 146 H 127 H Calcium Phosphorus Magnesium ALT Alkaline Phosphatase Total Creatine Kinase CK-MB (CK-2) Rel Index Troponin T Albumin LDL Cholesterol Direct PTH Intact Salicylates Acetaminophen Crossmatch 03/14/19 03/14/19 03/15/19 18:05 23:57 04:38 WBC 12.8 H RBC 3.11 L Hgb 8.1 L Hct 26.5 L MCH 26 L MCHC 31 L RDW 19.7 H Lymph % (Auto) 4.4 L [place] % (Auto) 7.4 H Eos % (Auto) Lymph # 0.6 L [place] # 0.9 H Eos # Seg Neutrophils % 87.3 H Seg Neuts % (Manual) Lymphocytes % (Manual) Eosinophils % (Manual) Seg Neutrophils # 11.2 H Lymphocytes # (Manual) Eosinophils # (Manual) PT INR D-Dimer POC ABG pH POC ABG pCO2 POC ABG pO2 ABG pO2 ABG HCO3 ABG Base Excess ABG Hemoglobin Oxyhemoglobin Sodium Potassium Chloride Carbon Dioxide BUN Creatinine Glucose POC Glucose 142 H 155 H Calcium Phosphorus Magnesium ALT Alkaline Phosphatase Total Creatine Kinase CK-MB (CK-2) Rel Index Troponin T Albumin LDL Cholesterol Direct PTH Intact Salicylates Acetaminophen Crossmatch 03/15/19 03/15/19 03/15/19 04:38 05:31 11:32 WBC RBC Hgb Hct MCH MCHC RDW Lymph % (Auto) [place] % (Auto) Eos % (Auto) Lymph # [place] # Eos # Seg Neutrophils % Seg Neuts % (Manual) Lymphocytes % (Manual) Eosinophils % (Manual) Seg Neutrophils # Lymphocytes # (Manual) Eosinophils # (Manual) PT INR D-Dimer POC ABG pH POC ABG pCO2 POC ABG pO2 ABG pO2 ABG HCO3 ABG Base Excess ABG Hemoglobin Oxyhemoglobin Sodium 135 L Potassium Chloride 91.9 L Carbon Dioxide BUN 54 H Creatinine 2.8 H Glucose 128 H POC Glucose 160 H 109 H Calcium 11.1 H Phosphorus Magnesium ALT Alkaline Phosphatase 161 H Total Creatine Kinase CK-MB (CK-2) Rel Index Troponin T Albumin 2.3 L LDL Cholesterol Direct PTH Intact Salicylates Acetaminophen Crossmatch 03/15/19 03/15/19 03/16/19 18:15 23:41 05:40 WBC RBC Hgb Hct MCH MCHC RDW Lymph % (Auto) [place] % (Auto) Eos % (Auto) Lymph # [place] # Eos # Seg Neutrophils % Seg Neuts % (Manual) Lymphocytes % (Manual) Eosinophils % (Manual) Seg Neutrophils # Lymphocytes # (Manual) Eosinophils # (Manual) PT INR D-Dimer POC ABG pH POC ABG pCO2 POC ABG pO2 ABG pO2 ABG HCO3 ABG Base Excess ABG Hemoglobin Oxyhemoglobin Sodium Potassium Chloride Carbon Dioxide BUN Creatinine Glucose POC Glucose 151 H 110 H 163 H Calcium Phosphorus Magnesium ALT Alkaline Phosphatase Total Creatine Kinase CK-MB (CK-2) Rel Index Troponin T Albumin LDL Cholesterol Direct PTH Intact Salicylates Acetaminophen Crossmatch 03/16/19 03/16/19 03/16/19 11:55 17:04 23:58 WBC RBC Hgb Hct MCH MCHC RDW Lymph % (Auto) [place] % (Auto) Eos % (Auto) Lymph # [place] # Eos # Seg Neutrophils % Seg Neuts % (Manual) Lymphocytes % (Manual) Eosinophils % (Manual) Seg Neutrophils # Lymphocytes # (Manual) Eosinophils # (Manual) PT INR D-Dimer POC ABG pH POC ABG pCO2 POC ABG pO2 ABG pO2 ABG HCO3 ABG Base Excess ABG Hemoglobin Oxyhemoglobin Sodium Potassium Chloride Carbon Dioxide BUN Creatinine Glucose POC Glucose 114 H 147 H 192 H Calcium Phosphorus Magnesium ALT Alkaline Phosphatase Total Creatine Kinase CK-MB (CK-2) Rel Index Troponin T Albumin LDL Cholesterol Direct PTH Intact Salicylates Acetaminophen Crossmatch 03/17/19 03/17/19 03/17/19 05:53 11:17 17:01 WBC RBC Hgb Hct MCH MCHC RDW Lymph % (Auto) [place] % (Auto) Eos % (Auto) Lymph # [place] # Eos # Seg Neutrophils % Seg Neuts % (Manual) Lymphocytes % (Manual) Eosinophils % (Manual) Seg Neutrophils # Lymphocytes # (Manual) Eosinophils # (Manual) PT INR D-Dimer POC ABG pH POC ABG pCO2 POC ABG pO2 ABG pO2 ABG HCO3 ABG Base Excess ABG Hemoglobin Oxyhemoglobin Sodium Potassium Chloride Carbon Dioxide BUN Creatinine Glucose POC Glucose 151 H 161 H 152 H Calcium Phosphorus Magnesium ALT Alkaline Phosphatase Total Creatine Kinase CK-MB (CK-2) Rel Index Troponin T Albumin LDL Cholesterol Direct PTH Intact Salicylates Acetaminophen Crossmatch 03/17/19 03/18/19 03/18/19 21:47 04:15 04:44 WBC RBC Hgb Hct MCH MCHC RDW Lymph % (Auto) [place] % (Auto) Eos % (Auto) Lymph # [place] # Eos # Seg Neutrophils % Seg Neuts % (Manual) Lymphocytes % (Manual) Eosinophils % (Manual) Seg Neutrophils # Lymphocytes # (Manual) Eosinophils # (Manual) PT INR D-Dimer POC ABG pH POC ABG pCO2 POC ABG pO2 ABG pO2 102.8 H ABG HCO3 28.3 H ABG Base Excess ABG Hemoglobin 10.4 L Oxyhemoglobin 94.5 L Sodium Potassium Chloride Carbon Dioxide BUN Creatinine Glucose POC Glucose 170 H 150 H Calcium Phosphorus Magnesium ALT Alkaline Phosphatase Total Creatine Kinase CK-MB (CK-2) Rel Index Troponin T Albumin LDL Cholesterol Direct PTH Intact Salicylates Acetaminophen Crossmatch 03/18/19 03/18/19 03/18/19 06:38 12:12 17:47 WBC RBC Hgb Hct MCH MCHC RDW Lymph % (Auto) [place] % (Auto) Eos % (Auto) Lymph # [place] # Eos # Seg Neutrophils % Seg Neuts % (Manual) Lymphocytes % (Manual) Eosinophils % (Manual) Seg Neutrophils # Lymphocytes # (Manual) Eosinophils # (Manual) PT INR D-Dimer POC ABG pH 7.510 H POC ABG pCO2 POC ABG pO2 164 H ABG pO2 ABG HCO3 ABG Base Excess ABG Hemoglobin Oxyhemoglobin Sodium Potassium Chloride Carbon Dioxide BUN Creatinine Glucose POC Glucose 145 H 149 H Calcium Phosphorus Magnesium ALT Alkaline Phosphatase Total Creatine Kinase CK-MB (CK-2) Rel Index Troponin T Albumin LDL Cholesterol Direct PTH Intact Salicylates Acetaminophen Crossmatch 03/18/19 03/19/19 03/19/19 23:25 01:11 04:23 WBC 15.6 H RBC 2.51 L Hgb 6.5 L Hct 21.6 L MCH 26 L MCHC 30 L RDW 19.8 H Lymph % (Auto) 6.0 L [place] % (Auto) Eos % (Auto) Lymph # 0.9 L [place] # 1.0 H Eos # Seg Neutrophils % 85.5 H Seg Neuts % (Manual) Lymphocytes % (Manual) Eosinophils % (Manual) Seg Neutrophils # 13.4 H Lymphocytes # (Manual) Eosinophils # (Manual) PT INR D-Dimer POC ABG pH POC ABG pCO2 POC ABG pO2 ABG pO2 78.3 L ABG HCO3 30.7 H ABG Base Excess 5.8 H ABG Hemoglobin 5.8 L Oxyhemoglobin 94.6 L Sodium Potassium Chloride Carbon Dioxide BUN Creatinine Glucose POC Glucose 190 H Calcium Phosphorus Magnesium ALT Alkaline Phosphatase Total Creatine Kinase CK-MB (CK-2) Rel Index Troponin T Albumin LDL Cholesterol Direct PTH Intact Salicylates Acetaminophen Crossmatch 03/19/19 03/19/19 03/19/19 05:22 05:35 08:54 WBC RBC Hgb Hct MCH MCHC RDW Lymph % (Auto) [place] % (Auto) Eos % (Auto) Lymph # [place] # Eos # Seg Neutrophils % Seg Neuts % (Manual) Lymphocytes % (Manual) Eosinophils % (Manual) Seg Neutrophils # Lymphocytes # (Manual) Eosinophils # (Manual) PT INR D-Dimer POC ABG pH POC ABG pCO2 POC ABG pO2 ABG pO2 ABG HCO3 ABG Base Excess ABG Hemoglobin Oxyhemoglobin Sodium Potassium Chloride Carbon Dioxide BUN Creatinine Glucose POC Glucose 167 H Calcium Phosphorus Magnesium ALT Alkaline Phosphatase Total Creatine Kinase CK-MB (CK-2) Rel Index Troponin T Albumin LDL Cholesterol Direct PTH Intact Salicylates Acetaminophen Crossmatch See Detail See Detail 03/19/19 03/19/19 03/19/19 12:36 17:02 23:25 WBC RBC Hgb Hct MCH MCHC RDW Lymph % (Auto) [place] % (Auto) Eos % (Auto) Lymph # [place] # Eos # Seg Neutrophils % Seg Neuts % (Manual) Lymphocytes % (Manual) Eosinophils % (Manual) Seg Neutrophils # Lymphocytes # (Manual) Eosinophils # (Manual) PT INR D-Dimer POC ABG pH POC ABG pCO2 POC ABG pO2 ABG pO2 ABG HCO3 ABG Base Excess ABG Hemoglobin Oxyhemoglobin Sodium Potassium Chloride Carbon Dioxide BUN Creatinine Glucose POC Glucose 167 H 135 H 136 H Calcium Phosphorus Magnesium ALT Alkaline Phosphatase Total Creatine Kinase CK-MB (CK-2) Rel Index Troponin T Albumin LDL Cholesterol Direct PTH Intact Salicylates Acetaminophen Crossmatch 03/20/19 03/20/19 03/20/19 05:38 08:40 08:40 WBC RBC 2.61 L Hgb 7.1 L Hct 22.0 L MCH 27 L MCHC RDW 19.6 H Lymph % (Auto) 8.2 L [place] % (Auto) 8.3 H Eos % (Auto) 5.7 H Lymph # 0.8 L [place] # Eos # 0.5 H Seg Neutrophils % 77.3 H Seg Neuts % (Manual) Lymphocytes % (Manual) Eosinophils % (Manual) Seg Neutrophils # Lymphocytes # (Manual) Eosinophils # (Manual) PT INR D-Dimer POC ABG pH POC ABG pCO2 POC ABG pO2 ABG pO2 ABG HCO3 ABG Base Excess ABG Hemoglobin Oxyhemoglobin Sodium Potassium Chloride 95.9 L Carbon Dioxide BUN 69 H Creatinine 2.8 H Glucose 115 H POC Glucose 134 H Calcium 10.5 H Phosphorus Magnesium ALT Alkaline Phosphatase Total Creatine Kinase CK-MB (CK-2) Rel Index Troponin T Albumin LDL Cholesterol Direct PTH Intact Salicylates Acetaminophen Crossmatch 03/20/19 03/20/19 03/20/19 12:13 18:04 23:49 WBC RBC Hgb Hct MCH MCHC RDW Lymph % (Auto) [place] % (Auto) Eos % (Auto) Lymph # [place] # Eos # Seg Neutrophils % Seg Neuts % (Manual) Lymphocytes % (Manual) Eosinophils % (Manual) Seg Neutrophils # Lymphocytes # (Manual) Eosinophils # (Manual) PT INR D-Dimer POC ABG pH POC ABG pCO2 POC ABG pO2 ABG pO2 ABG HCO3 ABG Base Excess ABG Hemoglobin Oxyhemoglobin Sodium Potassium Chloride Carbon Dioxide BUN Creatinine Glucose POC Glucose 144 H 165 H 172 H Calcium Phosphorus Magnesium ALT Alkaline Phosphatase Total Creatine Kinase CK-MB (CK-2) Rel Index Troponin T Albumin LDL Cholesterol Direct PTH Intact Salicylates Acetaminophen Crossmatch 03/21/19 03/21/19 03/21/19 05:00 06:29 06:30 WBC RBC 2.72 L Hgb 7.4 L Hct 22.9 L MCH 27 L MCHC RDW 19.4 H Lymph % (Auto) [place] % (Auto) Eos % (Auto) Lymph # [place] # Eos # Seg Neutrophils % Seg Neuts % (Manual) 81.0 H Lymphocytes % (Manual) 8.0 L Eosinophils % (Manual) 8.0 H Seg Neutrophils # Lymphocytes # (Manual) 0.7 L Eosinophils # (Manual) 0.7 H PT INR D-Dimer POC ABG pH POC ABG pCO2 POC ABG pO2 ABG pO2 ABG HCO3 ABG Base Excess ABG Hemoglobin Oxyhemoglobin Sodium Potassium Chloride Carbon Dioxide 33 H BUN 43 H Creatinine 1.7 H Glucose 145 H POC Glucose 156 H Calcium Phosphorus Magnesium ALT Alkaline Phosphatase 212 H Total Creatine Kinase CK-MB (CK-2) Rel Index Troponin T Albumin 2.2 L LDL Cholesterol Direct PTH Intact Salicylates Acetaminophen Crossmatch 03/21/19 03/21/19 03/22/19 12:02 18:07 00:21 WBC RBC Hgb Hct MCH MCHC RDW Lymph % (Auto) [place] % (Auto) Eos % (Auto) Lymph # [place] # Eos # Seg Neutrophils % Seg Neuts % (Manual) Lymphocytes % (Manual) Eosinophils % (Manual) Seg Neutrophils # Lymphocytes # (Manual) Eosinophils # (Manual) PT INR D-Dimer POC ABG pH POC ABG pCO2 POC ABG pO2 ABG pO2 ABG HCO3 ABG Base Excess ABG Hemoglobin Oxyhemoglobin Sodium Potassium Chloride Carbon Dioxide BUN Creatinine Glucose POC Glucose 163 H 144 H 153 H Calcium Phosphorus Magnesium ALT Alkaline Phosphatase Total Creatine Kinase CK-MB (CK-2) Rel Index Troponin T Albumin LDL Cholesterol Direct PTH Intact Salicylates Acetaminophen Crossmatch 03/22/19 03/22/19 03/22/19 05:23 05:23 05:31 WBC RBC 2.58 L Hgb 7.1 L Hct 21.8 L MCH 27 L MCHC RDW 19.2 H Lymph % (Auto) [place] % (Auto) Eos % (Auto) Lymph # [place] # Eos # Seg Neutrophils % Seg Neuts % (Manual) Lymphocytes % (Manual) Eosinophils % (Manual) Seg Neutrophils # Lymphocytes # (Manual) Eosinophils # (Manual) PT INR D-Dimer POC ABG pH POC ABG pCO2 POC ABG pO2 ABG pO2 ABG HCO3 ABG Base Excess ABG Hemoglobin Oxyhemoglobin Sodium 147 H Potassium Chloride Carbon Dioxide BUN 68 H Creatinine 2.5 H Glucose POC Glucose 116 H Calcium 10.3 H Phosphorus Magnesium ALT Alkaline Phosphatase Total Creatine Kinase CK-MB (CK-2) Rel Index Troponin T Albumin LDL Cholesterol Direct PTH Intact Salicylates Acetaminophen Crossmatch 03/22/19 03/22/19 03/22/19 08:48 12:37 17:35 WBC RBC Hgb Hct MCH MCHC RDW Lymph % (Auto) [place] % (Auto) Eos % (Auto) Lymph # [place] # Eos # Seg Neutrophils % Seg Neuts % (Manual) Lymphocytes % (Manual) Eosinophils % (Manual) Seg Neutrophils # Lymphocytes # (Manual) Eosinophils # (Manual) PT INR D-Dimer POC ABG pH POC ABG pCO2 POC ABG pO2 ABG pO2 ABG HCO3 ABG Base Excess ABG Hemoglobin Oxyhemoglobin Sodium Potassium Chloride Carbon Dioxide BUN Creatinine Glucose POC Glucose 143 H 155 H Calcium Phosphorus Magnesium ALT Alkaline Phosphatase Total Creatine Kinase CK-MB (CK-2) Rel Index Troponin T Albumin LDL Cholesterol Direct PTH Intact Salicylates Acetaminophen Crossmatch See Detail 03/23/19 03/23/19 03/23/19 00:07 04:00 04:00 WBC 11.2 H RBC 2.32 L Hgb 6.4 L Hct 19.7 L* MCH MCHC RDW 19.4 H Lymph % (Auto) [place] % (Auto) Eos % (Auto) Lymph # [place] # Eos # Seg Neutrophils % Seg Neuts % (Manual) Lymphocytes % (Manual) Eosinophils % (Manual) Seg Neutrophils # Lymphocytes # (Manual) Eosinophils # (Manual) PT INR D-Dimer POC ABG pH POC ABG pCO2 POC ABG pO2 ABG pO2 ABG HCO3 ABG Base Excess ABG Hemoglobin Oxyhemoglobin Sodium 147 H Potassium 5.2 H Chloride Carbon Dioxide BUN 86 H Creatinine 3.2 H Glucose 128 H POC Glucose 135 H Calcium 10.3 H Phosphorus Magnesium ALT Alkaline Phosphatase Total Creatine Kinase CK-MB (CK-2) Rel Index Troponin T Albumin LDL Cholesterol Direct PTH Intact Salicylates Acetaminophen Crossmatch 03/23/19 03/23/19 03/23/19 05:21 11:36 11:36 WBC RBC Hgb 7.9 L Hct 25.0 L MCH MCHC RDW Lymph % (Auto) [place] % (Auto) Eos % (Auto) Lymph # [place] # Eos # Seg Neutrophils % Seg Neuts % (Manual) Lymphocytes % (Manual) Eosinophils % (Manual) Seg Neutrophils # Lymphocytes # (Manual) Eosinophils # (Manual) PT INR D-Dimer POC ABG pH POC ABG pCO2 POC ABG pO2 ABG pO2 ABG HCO3 ABG Base Excess ABG Hemoglobin Oxyhemoglobin Sodium Potassium Chloride Carbon Dioxide BUN Creatinine Glucose POC Glucose 132 H 147 H Calcium Phosphorus Magnesium ALT Alkaline Phosphatase Total Creatine Kinase CK-MB (CK-2) Rel Index Troponin T Albumin LDL Cholesterol Direct PTH Intact Salicylates Acetaminophen Crossmatch 03/23/19 03/24/19 03/24/19 17:31 01:22 04:20 WBC 12.2 H RBC 3.05 L Hgb 8.3 L Hct 25.9 L MCH 27 L MCHC RDW 18.7 H Lymph % (Auto) [place] % (Auto) Eos % (Auto) Lymph # [place] # Eos # Seg Neutrophils % Seg Neuts % (Manual) Lymphocytes % (Manual) Eosinophils % (Manual) Seg Neutrophils # Lymphocytes # (Manual) Eosinophils # (Manual) PT INR D-Dimer POC ABG pH POC ABG pCO2 POC ABG pO2 ABG pO2 ABG HCO3 ABG Base Excess ABG Hemoglobin Oxyhemoglobin Sodium Potassium Chloride Carbon Dioxide BUN Creatinine Glucose POC Glucose 182 H 113 H Calcium Phosphorus Magnesium ALT Alkaline Phosphatase Total Creatine Kinase CK-MB (CK-2) Rel Index Troponin T Albumin LDL Cholesterol Direct PTH Intact Salicylates Acetaminophen Crossmatch 03/24/19 03/24/19 03/24/19 04:20 11:59 18:14 WBC RBC Hgb Hct MCH MCHC RDW Lymph % (Auto) [place] % (Auto) Eos % (Auto) Lymph # [place] # Eos # Seg Neutrophils % Seg Neuts % (Manual) Lymphocytes % (Manual) Eosinophils % (Manual) Seg Neutrophils # Lymphocytes # (Manual) Eosinophils # (Manual) PT INR D-Dimer POC ABG pH POC ABG pCO2 POC ABG pO2 ABG pO2 ABG HCO3 ABG Base Excess ABG Hemoglobin Oxyhemoglobin Sodium Potassium Chloride 94.8 L Carbon Dioxide 32 H BUN 53 H Creatinine 2.3 H Glucose POC Glucose 163 H 134 H Calcium Phosphorus Magnesium ALT Alkaline Phosphatase Total Creatine Kinase CK-MB (CK-2) Rel Index Troponin T Albumin LDL Cholesterol Direct PTH Intact Salicylates Acetaminophen Crossmatch 03/24/19 03/25/19 03/25/19 23:15 05:52 12:02 WBC RBC Hgb Hct MCH MCHC RDW Lymph % (Auto) [place] % (Auto) Eos % (Auto) Lymph # [place] # Eos # Seg Neutrophils % Seg Neuts % (Manual) Lymphocytes % (Manual) Eosinophils % (Manual) Seg Neutrophils # Lymphocytes # (Manual) Eosinophils # (Manual) PT INR D-Dimer POC ABG pH POC ABG pCO2 POC ABG pO2 ABG pO2 ABG HCO3 ABG Base Excess ABG Hemoglobin Oxyhemoglobin Sodium Potassium Chloride Carbon Dioxide BUN Creatinine Glucose POC Glucose 129 H 123 H 125 H Calcium Phosphorus Magnesium ALT Alkaline Phosphatase Total Creatine Kinase CK-MB (CK-2) Rel Index Troponin T Albumin LDL Cholesterol Direct PTH Intact Salicylates Acetaminophen Crossmatch 03/25/19 03/26/19 03/26/19 17:27 00:30 05:35 WBC RBC 3.01 L Hgb 8.1 L Hct 25.7 L MCH 27 L MCHC RDW 19.2 H Lymph % (Auto) 11.4 L [place] % (Auto) Eos % (Auto) 8.0 H Lymph # 1.0 L [place] # Eos # 0.7 H Seg Neutrophils % 73.9 H Seg Neuts % (Manual) Lymphocytes % (Manual) Eosinophils % (Manual) Seg Neutrophils # Lymphocytes # (Manual) Eosinophils # (Manual) PT INR D-Dimer POC ABG pH POC ABG pCO2 POC ABG pO2 ABG pO2 ABG HCO3 ABG Base Excess ABG Hemoglobin Oxyhemoglobin Sodium Potassium Chloride Carbon Dioxide BUN Creatinine Glucose POC Glucose 130 H 129 H Calcium Phosphorus Magnesium ALT Alkaline Phosphatase Total Creatine Kinase CK-MB (CK-2) Rel Index Troponin T Albumin LDL Cholesterol Direct PTH Intact Salicylates Acetaminophen Crossmatch 03/26/19 03/26/19 03/26/19 05:35 05:45 12:16 WBC RBC Hgb Hct MCH MCHC RDW Lymph % (Auto) [place] % (Auto) Eos % (Auto) Lymph # [place] # Eos # Seg Neutrophils % Seg Neuts % (Manual) Lymphocytes % (Manual) Eosinophils % (Manual) Seg Neutrophils # Lymphocytes # (Manual) Eosinophils # (Manual) PT INR D-Dimer POC ABG pH POC ABG pCO2 POC ABG pO2 ABG pO2 ABG HCO3 ABG Base Excess ABG Hemoglobin Oxyhemoglobin Sodium Potassium Chloride 94.9 L Carbon Dioxide 31 H BUN 44 H Creatinine 2.0 H Glucose POC Glucose 118 H 107 H Calcium Phosphorus Magnesium ALT Alkaline Phosphatase Total Creatine Kinase CK-MB (CK-2) Rel Index Troponin T Albumin LDL Cholesterol Direct PTH Intact Salicylates Acetaminophen Crossmatch 03/26/19 03/27/19 03/27/19 17:56 00:36 05:37 WBC RBC Hgb Hct MCH MCHC RDW Lymph % (Auto) [place] % (Auto) Eos % (Auto) Lymph # [place] # Eos # Seg Neutrophils % Seg Neuts % (Manual) Lymphocytes % (Manual) Eosinophils % (Manual) Seg Neutrophils # Lymphocytes # (Manual) Eosinophils # (Manual) PT INR D-Dimer POC ABG pH POC ABG pCO2 POC ABG pO2 ABG pO2 ABG HCO3 ABG Base Excess ABG Hemoglobin Oxyhemoglobin Sodium Potassium Chloride Carbon Dioxide BUN Creatinine Glucose POC Glucose 107 H 110 H 122 H Calcium Phosphorus Magnesium ALT Alkaline Phosphatase Total Creatine Kinase CK-MB (CK-2) Rel Index Troponin T Albumin LDL Cholesterol Direct PTH Intact Salicylates Acetaminophen Crossmatch 03/27/19 03/27/19 03/28/19 11:22 18:00 05:17 WBC RBC Hgb Hct MCH MCHC RDW Lymph % (Auto) [place] % (Auto) Eos % (Auto) Lymph # [place] # Eos # Seg Neutrophils % Seg Neuts % (Manual) Lymphocytes % (Manual) Eosinophils % (Manual) Seg Neutrophils # Lymphocytes # (Manual) Eosinophils # (Manual) PT INR D-Dimer POC ABG pH POC ABG pCO2 POC ABG pO2 ABG pO2 ABG HCO3 ABG Base Excess ABG Hemoglobin Oxyhemoglobin Sodium Potassium Chloride Carbon Dioxide BUN Creatinine Glucose POC Glucose 120 H 111 H 107 H Calcium Phosphorus Magnesium ALT Alkaline Phosphatase Total Creatine Kinase CK-MB (CK-2) Rel Index Troponin T Albumin LDL Cholesterol Direct PTH Intact Salicylates Acetaminophen Crossmatch 03/28/19 03/28/19 03/29/19 12:27 18:08 05:47 WBC RBC Hgb Hct MCH MCHC RDW Lymph % (Auto) [place] % (Auto) Eos % (Auto) Lymph # [place] # Eos # Seg Neutrophils % Seg Neuts % (Manual) Lymphocytes % (Manual) Eosinophils % (Manual) Seg Neutrophils # Lymphocytes # (Manual) Eosinophils # (Manual) PT INR D-Dimer POC ABG pH POC ABG pCO2 POC ABG pO2 ABG pO2 ABG HCO3 ABG Base Excess ABG Hemoglobin Oxyhemoglobin Sodium Potassium Chloride Carbon Dioxide BUN Creatinine Glucose POC Glucose 114 H 121 H 112 H Calcium Phosphorus Magnesium ALT Alkaline Phosphatase Total Creatine Kinase CK-MB (CK-2) Rel Index Troponin T Albumin LDL Cholesterol Direct PTH Intact Salicylates Acetaminophen Crossmatch 03/29/19 03/29/19 03/30/19 12:14 18:08 00:31 WBC RBC Hgb Hct MCH MCHC RDW Lymph % (Auto) [place] % (Auto) Eos % (Auto) Lymph # [place] # Eos # Seg Neutrophils % Seg Neuts % (Manual) Lymphocytes % (Manual) Eosinophils % (Manual) Seg Neutrophils # Lymphocytes # (Manual) Eosinophils # (Manual) PT INR D-Dimer POC ABG pH POC ABG pCO2 POC ABG pO2 ABG pO2 ABG HCO3 ABG Base Excess ABG Hemoglobin Oxyhemoglobin Sodium Potassium Chloride Carbon Dioxide BUN Creatinine Glucose POC Glucose 117 H 140 H 114 H Calcium Phosphorus Magnesium ALT Alkaline Phosphatase Total Creatine Kinase CK-MB (CK-2) Rel Index Troponin T Albumin LDL Cholesterol Direct PTH Intact Salicylates Acetaminophen Crossmatch 03/30/19 03/30/19 03/30/19 10:13 10:13 23:53 WBC RBC 2.81 L Hgb 7.7 L Hct 24.3 L MCH 27 L MCHC RDW 19.0 H Lymph % (Auto) 12.2 L [place] % (Auto) Eos % (Auto) 7.9 H Lymph # 1.0 L [place] # Eos # 0.6 H Seg Neutrophils % 72.3 H Seg Neuts % (Manual) Lymphocytes % (Manual) Eosinophils % (Manual) Seg Neutrophils # Lymphocytes # (Manual) Eosinophils # (Manual) PT INR D-Dimer POC ABG pH POC ABG pCO2 POC ABG pO2 ABG pO2 ABG HCO3 ABG Base Excess ABG Hemoglobin Oxyhemoglobin Sodium Potassium 5.1 H Chloride 96.5 L Carbon Dioxide BUN 73 H Creatinine 3.9 H D Glucose POC Glucose 114 H Calcium 10.3 H Phosphorus 6.30 H Magnesium 2.70 H ALT Alkaline Phosphatase 185 H Total Creatine Kinase CK-MB (CK-2) Rel Index Troponin T Albumin 2.6 L LDL Cholesterol Direct PTH Intact Salicylates Acetaminophen Crossmatch 03/31/19 03/31/19 03/31/19 05:45 10:26 10:26 WBC RBC 3.01 L Hgb 8.2 L Hct 26.4 L MCH 27 L MCHC 31 L RDW 20.3 H Lymph % (Auto) 13.3 L [place] % (Auto) Eos % (Auto) 7.2 H Lymph # 1.1 L [place] # Eos # 0.6 H Seg Neutrophils % 72.1 H Seg Neuts % (Manual) Lymphocytes % (Manual) Eosinophils % (Manual) Seg Neutrophils # Lymphocytes # (Manual) Eosinophils # (Manual) PT INR D-Dimer POC ABG pH POC ABG pCO2 POC ABG pO2 ABG pO2 ABG HCO3 ABG Base Excess ABG Hemoglobin Oxyhemoglobin Sodium Potassium Chloride 96.9 L Carbon Dioxide 33 H BUN 37 H Creatinine 2.4 H Glucose POC Glucose 108 H Calcium 10.3 H Phosphorus Magnesium ALT Alkaline Phosphatase Total Creatine Kinase CK-MB (CK-2) Rel Index Troponin T Albumin LDL Cholesterol Direct PTH Intact Salicylates Acetaminophen Crossmatch 03/31/19 04/01/19 04/01/19 12:38 05:48 12:06 WBC RBC Hgb Hct MCH MCHC RDW Lymph % (Auto) [place] % (Auto) Eos % (Auto) Lymph # [place] # Eos # Seg Neutrophils % Seg Neuts % (Manual) Lymphocytes % (Manual) Eosinophils % (Manual) Seg Neutrophils # Lymphocytes # (Manual) Eosinophils # (Manual) PT INR D-Dimer POC ABG pH POC ABG pCO2 POC ABG pO2 ABG pO2 ABG HCO3 ABG Base Excess ABG Hemoglobin Oxyhemoglobin Sodium Potassium Chloride Carbon Dioxide BUN Creatinine Glucose POC Glucose 108 H 114 H 111 H Calcium Phosphorus Magnesium ALT Alkaline Phosphatase Total Creatine Kinase CK-MB (CK-2) Rel Index Troponin T Albumin LDL Cholesterol Direct PTH Intact Salicylates Acetaminophen Crossmatch 04/01/19 04/02/19 18:24 00:36 WBC RBC Hgb Hct MCH MCHC RDW Lymph % (Auto) [place] % (Auto) Eos % (Auto) Lymph # [place] # Eos # Seg Neutrophils % Seg Neuts % (Manual) Lymphocytes % (Manual) Eosinophils % (Manual) Seg Neutrophils # Lymphocytes # (Manual) Eosinophils # (Manual) PT INR D-Dimer POC ABG pH POC ABG pCO2 POC ABG pO2 ABG pO2 ABG HCO3 ABG Base Excess ABG Hemoglobin Oxyhemoglobin Sodium Potassium Chloride Carbon Dioxide BUN Creatinine Glucose POC Glucose 113 H 117 H Calcium Phosphorus Magnesium ALT Alkaline Phosphatase Total Creatine Kinase CK-MB (CK-2) Rel Index Troponin T Albumin LDL Cholesterol Direct PTH Intact Salicylates Acetaminophen Crossmatch
[2019-04-02] MEDS: SERTRALINE 100 MG TAB PO SCH (10:42)
[2019-04-02] MEDS: FAMOTIDINE 20 MG TAB PO SCH (10:42)
[2019-04-02] MEDS: risperiDONE 1 MG TAB PO SCH (10:42)
[2019-04-02] MEDS: HEPARIN 5,000 UNIT/1 ML VIAL SUB-Q SCH ×2 (10:42→21:35)
--- NOTE | 2019-04-02 15:18 | Progress Note ---
Assessment and Plan Assessment and plan: Patient is 63-year-old -[place] male patient from [facility] with multiple co-morbidities including blindness, CVA, CHF, PPM/ICD, loop recorder since 2012 that is MRI compatible, IDDM type 2, sepsis left foot ulcer, afib, ESRD with complications on HD TTS, hypertension, AOCD and GERD who presented to the ED with hypotensive after intubation in the emergency room. diagnosed with fluid overload, pleural effusion. Patient has had recurrent admission in the hospital for similar reason and was recently discharged from the hospital following treatment of Severe Sepsis due to Necrotizing Unstagable sacral decubitus ulcer with ostemomylitis, has received multiple courses of broad spectrum abx. Acute hypoxic respiratory failure, status post intubation and ventilatory support, now off vent, on T-piece Acute respiratory failure on mechanical ventilator >96 hrs Extubated ; history of tracheostomy on T piece Current management , nebulizers, Currently on trach/peg placed on 03/03. Now off vent, cont oxygen supplement, improving, on t piece, nebulizers, pulmonary critical following acute on chronic systolic CHF/ Acute pulmonary edema, HD per schedule Dilated CMP, EF 35-40% Continue diuresis, supportive care Acute metabolic encephalopathy, resolved, has baseline Dementia. --ESRD on hemodialysis per schedule nephrology following --Bilateral pleural effusions improved with HD --Permanent atrial fibrillation and flutter and hypercoaguable state Not on anticoagulation because of anemia thrombocytopenia rate control meds optimized --Diabetes mellitus type 2 Accu-Chek sliding scale coverage Insulin as needed --NSTEMI type 2 , Cardiology following --Schizophrenia:stable --Legally blind, supportive care --hypertension, Monitor BP,'s adjust medications as needed --Hypokalemia; corrected --Pulmonary hypertension; continue current management --Dysphagia s/p PEG tube; PEG tubes per protocol --Sacral decub ulcer; Wound care --Severe malnutrition /hypoalbuminemia with FTT: 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, metal off bearer following PEG placed on 01/02/19 --Multiple decubiti, different stages , s/ p colostomy Left 5th finger, stage 4 pressure ulcer Left heel, deep tissue injury Sacrum, stage 4 pressure ulcer POA Continue wound care --History of sacral osteomyelitis and LE ulcers Completed Antibiotics, contact isolation for ESBL Klebsiella pneumonia on wound culture 01/02/19 --Anemia of chronic disease s/p 1 unit of prbc , stable --RUL atelectasis, probably mucous plugging --DVT prophylaxis; Lovenox --Full code status --Very poor prognosis Dispo; Awaiting SNF placement , difficult to place ,unable to find any NH to take patient. inpatient hospice was recommended, but family is not agreeable at this time. family meeting and ethic consult as needed History Interval history: Patient was seen and evaluated this morning, Patient is on PEG and trach. Hospitalist Physical - Physical exam Narrative exam: Patient is on trach and PEG The patient appeared well nourished and normally developed. Vital signs as documented. Head exam is unremarkable. No scleral icterus . Neck is without jugular venous distension, thyromegaly, or carotid bruits. Lungs are clear to auscultation. Cardiac exam reveals regular rate and Rhythm. First and second heart sounds normal. No murmurs, rubs or gallops. Abdominal exam reveals PEG tube in place, colostomy bag in place. Extremities are nonedematous and both femoral and pedal pulses are normal. 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 - Constitutional Vitals: Temp Pulse Resp BP Pulse Ox 98.4 F 86 19 114/64 99 04/02/19 12:00 04/02/19 14:04/02/19 14:04/02/19 14:04/02/19 13:00 General appearance: Present: no acute distress, well-nourished, other (tra cheostomy on T piece) Results - Labs CBC & Chem 7: 03/31/19 10:26 03/31/19 10:26 Labs: Laboratory Last Values WBC 8.3 K/mm3 (4.5-11.0) 03/31/19 10: RBC 3.01 M/mm3 (3.65-5.03) L 03/31/19 10:26 Hgb 8.2 gm/dl (11.8-15.2) L 03/31/19 10:26 Hct 26.4 % (35.5-45.6) L 03/31/19 10:26 MCV 88 fl (84-94) 03/31/19 10: MCH 27 pg (28-32) L 03/31/19 10: MCHC 31 % (32-34) L 03/31/19 10: RDW 20.3 % (13.2-15.2) H 03/31/19 10: Plt Count 361 K/mm3 (140-440) 03/31/19 10:26 Lymph % (Auto) 13.3 % (13.4-35.0) L 03/31/19 10: [place] % (Auto) 6.5 % (0.0-7.3) 03/31/19 10: Eos % (Auto) 7.2 % (0.0-4.3) H 03/31/19 10: Baso % (Auto) 0.9 % (0.0-1.8) 03/31/19 10: Lymph # 1.1 K/mm3 (1.2-5.4) L 03/31/19 10: [place] # 0.5 K/mm3 (0.0-0.8) 03/31/19 10: Eos # 0.6 K/mm3 (0.0-0.4) H 03/31/19 10: Baso # 0.1 K/mm3 (0.0-0.1) 03/31/19 10: Add Manual Diff Complete 03/21/19 06:30 Total Counted 100 03/21/19 06:30 Seg Neutrophils % 72.1 % (40.0-70.0) H 03/31/19 10: Seg Neuts % (Manual) 81.0 % (40.0-70.0) H 03/21/19 06:30 0 % 03/21/19 06:30 8.0 % (13.4-35.0) L 03/21/19 06:30 Reactive Lymphs % (Man) 0 % 03/21/19 06:30 1.0 % (0.0-7.3) 03/21/19 06:30 8.0 % (0.0-4.3) H 03/21/19 06:30 1.0 % (0.0-1.8) 03/21/19 06:30 1.0 % 03/21/19 06:30 0 % 03/21/19 06:30 0 % 03/21/19 06:30 0 % 03/21/19 06:30 Nucleated RBC % Not Reportable 03/21/19 06:30 Seg Neutrophils # 6.0 K/mm3 (1.8-7.7) 03/31/19 10:26 Seg Neutrophils # Man 6.7 K/mm3 (1.8-7.7) 03/21/19 06:30 Band Neutrophils # 0.0 K/mm3 03/21/19 06:30 0.7 K/mm3 (1.2-5.4) L 03/21/19 06:30 Abs React Lymphs (Man) 0.0 K/mm3 03/21/19 06:30 0.1 K/mm3 (0.0-0.8) 03/21/19 06:30 0.7 K/mm3 (0.0-0.4) H 03/21/19 06:30 0.1 K/mm3 (0.0-0.1) 03/21/19 06:30 0.1 K/mm3 03/21/19 06:30 0.0 K/mm3 03/21/19 06:30 0.0 K/mm3 03/21/19 06:30 Blast Cells # 0.0 K/mm3 03/21/19 06:30 WBC Morphology Not Reportable 03/21/19 06:30 Hypersegmented Neuts Not Reportable 03/21/19 06:30 Hyposegmented Neuts Not Reportable 03/21/19 06:30 Hypogranular Neuts Not Reportable 03/21/19 06:30 Not Reportable 03/21/19 06:30 Not Reportable 03/21/19 06:30 Not Reportable 03/21/19 06:30 Not Reportable 03/21/19 06:30 Not Reportable 03/21/19 06:30 Not Reportable 03/21/19 06:30 Consistent w auto 03/21/19 06:30 Not Reportable 03/21/19 06:30 Plt Clumps, EDTA Not Reportable 03/21/19 06:30 Not Reportable 03/21/19 06:30 Not Reportable 03/21/19 06:30 Not Reportable 03/21/19 06:30 Plt Morphology Comment Not Reportable 03/21/19 06:30 RBC Morphology Not Reportable 03/21/19 06:30 Dimorphic RBCs Not Reportable 03/21/19 06:30 Not Reportable 03/21/19 06:30 Few 03/21/19 06:30 Few 03/21/19 06:30 Few 03/21/19 06:30 Not Reportable 03/21/19 06:30 Not Reportable 03/21/19 06:30 Not Reportable 03/21/19 06:30 Not Reportable 03/21/19 06:30 Not Reportable 03/21/19 06:30 1+ 03/21/19 06:30 Not Reportable 03/21/19 06:30 Few 03/21/19 06:30 Not Reportable 03/21/19 06:30 Not Reportable 03/21/19 06:30 Not Reportable 03/21/19 06:30 Not Reportable 03/21/19 06:30 Not Reportable 03/21/19 06:30 Not Reportable 03/21/19 06:30 Not Reportable 03/21/19 06:30 Acanthocytes (Spur) Not Reportable 03/21/19 06:30 Rouleaux Not Reportable 03/21/19 06:30 Not Reportable 03/21/19 06:30 Not Reportable 03/21/19 06:30 Not Reportable 03/21/19 06:30 Not Reportable 03/21/19 06:30 Hem Pathologist Commnt No 03/21/19 06:30 PT 16.3 Sec. (12.2-14.9) H 03/01/19 09:39 INR 1.35 (0.87-1.13) H 03/01/19 09:39 APTT 33.7 Sec. (24.2-36.6) 02/21/19 18:30 2987.82 ng/mlDDU (0-234) H 02/22/19 05:54 POC ABG pH 7.510 (7.35-7.45) H 03/18/19 06:38 ABG pH 7.424 pH Units (7.350-7.450) 03/19/19 04:23 POC ABG pCO2 38.9 (35-45) 03/18/19 06:38 ABG pCO2 48.0 mm Hg 03/19/19 04:23 POC ABG pO2 164 (80-105) H 03/18/19 06:38 ABG pO2 78.3 mm Hg (80.0-90.0) L 03/19/19 04:23 POC ABG HCO3 31.0 (22-26 mml/L) 03/18/19 06:38 ABG HCO3 30.7 mmol/L (20.0-26.0) H 03/19/19 04:23 POC ABG Total CO2 32 (23-27mmol/L) 03/18/19 06:38 POC ABG O2 Sat 100 03/18/19 06:38 ABG O2 Saturation 97.0 % (95.0-99.0) 03/19/19 04:23 ABG O2 Content 7.9 (0.0-44) 03/19/19 04:23 POC ABG Base Excess 8 ((-2) - (+3)mmol/L) 03/18/19 06:38 ABG Base Excess 5.8 mmol/L (-2.0-3.0) H 03/19/19 04:23 ABG Hemoglobin 5.8 gm/dl (14.0-18.0) L 03/19/19 04:23 ABG Carboxyhemoglobin 2.0 % (0.0-5.0) 03/19/19 04:23 ABG Methemoglobin 0.4 % (0.0-1.5) 03/19/19 04:23 94.6 % (95.0-99.0) L 03/19/19 04:23 35 % 03/19/19 04:23 Sodium 143 mmol/L (137-145) 03/31/19 10:26 Potassium 4.1 mmol/L (3.6-5.0) 03/31/19 10:26 Chloride 96.9 mmol/L (98-107) L 03/31/19 10:26 Carbon Dioxide 33 mmol/L (22-30) H 03/31/19 10:26 17 mmol/L 03/31/19 10:26 BUN 37 mg/dL (9-20) H 03/31/19 10:26 2.4 mg/dL (0.8-1.5) H 03/31/19 10:26 Estimated GFR 33 ml/min 03/31/19 10:26 15 % 03/31/19 10:26 Glucose 86 mg/dL (75-100) 03/31/19 10:26 POC Glucose 105 (70-105) 04/02/19 11:55 Lactic Acid 1.00 mmol/L (0.7-2.0) 02/21/19 20:58 Calcium 10.3 mg/dL (8.4-10.2) H 03/31/19 10:26 Phosphorus 4.30 mg/dL (2.5-4.5) D 03/31/19 10:26 Magnesium 2.70 mg/dL (1.7-2.3) H 03/30/19 10:13 0.20 mg/dL (0.1-1.2) 03/30/19 10:13 AST 16 units/L (5-40) 03/30/19 10:13 ALT 11 units/L (7-56) 03/30/19 10:13 185 units/L (35-129) H 03/30/19 10:13 28.0 umol/L (25-60) 02/21/19 20:04 64 units/L (55-170) 02/22/19 03:42 CK-MB (CK-2) 3.7 ng/mL (0.0-4.0) 02/22/19 03:42 CK-MB (CK-2) Rel Index 5.7 (0-4) H 02/22/19 03:42 0.193 ng/mL (0.00-0.029) H* 02/22/19 03:42 6.9 g/dL (6.3-8.2) 03/30/19 10:13 2.6 g/dL (3.9-5) L 03/30/19 10:13 0.6 % 03/30/19 10:13 Triglycerides 51 mg/dL (2-149) 02/21/19 18:30 Cholesterol 82 mg/dL (50-199) 02/21/19 18:30 36 mg/dL (50-130) L 02/21/19 18:30 40 mg/dL (40-59) 02/21/19 18:30 2.05 % 02/21/19 18:30 TSH 2.760 mlU/mL (0.270-4.200) 02/21/19 20:04 PTH Intact 267.6 pg/mL (15-65) H 03/02/19 05:15 Salicylates < 0.3 mg/dL (2.8-20.0) L 02/21/19 20:04 Acetaminophen < 5.0 ug/mL (10.0-30.0) L 02/21/19 20:04 Hepatitis A IgM Ab Non-reactive (NonReactive) 03/31/19 22:56 Hep Bs Antigen Non-reactive (Negative) 03/31/19 22:56 Hep B Core IgM Ab Non-reactive (NonReactive) 03/31/19 22:56 Non-reactive (NonReactive) 03/31/19 22:56 Blood Type O POSITIVE 03/22/19 08:48 Antibody Screen Negative 03/22/19 08:48 Crossmatch See Detail 03/22/19 08:48 Active Medications - Current Medications Current Medications: Generic Name Dose Route Start Last Admin Trade Name Freq PRN Reason Stop Dose Admin Albuterol/Ipratropium 1 ampul 02/24/19 20:00 04/02/19 14:07 Duoneb *Not For Prn Use* IH 1 ampul TIDRT SANCHEZ Administration Lipase/Protease/Amylase 1 each 03/05/19 14:04 Pancrejewel Barrientos 10,500 Unit FEEDTUBE PRN PRN For Clogged Feeding Tube Epoetin Solitario 20,000 unit 03/24/19 11:17 04/01/19 09:51 Procrit IV 20,000 unit UMA PRN Administration hemodialysis Famotidine 20 mg 02/23/19 10:00 04/02/19 10:42 Pepcid PO 20 mg DAILY SANCHEZ Administration Heparin Sodium (Porcine) 5,000 unit 03/04/19 22:00 04/02/19 10:42 Heparin SUB-Q 5,000 unit Q12HR SANCHEZ Administration Hydrophilic Ointment 1 applic 02/21/19 18:24 03/05/19 08:16 Vaseline Lip Therapy TP 1 applic Q2HR PRN Administration Dry Lips Sodium Chloride 100 mls @ 999 mls/hr 02/26/19 09:00 Nacl 0.9% IV UMA PRN Hypotension Insulin Human Regular 0 units 02/26/19 12:00 04/02/19 12:20 Humulin R SUB-Q Not Given Q6HR [facility] Protocol Metoprolol Tartrate 2.5 mg 02/28/19 12:06 03/15/19 05:15 Lopressor IV 2.5 mg Q4HR PRN Administration Tachycardia Multi-Ingred Cream/Lotion/Oil/Oint 1 applic 02/21/19 18:24 03/29/19 21:40 Artificial Tears Ophth Oint OU 1 applic Q4HR PRN Administration Dry Eye(s) Risperidone 1 mg 02/25/19 13:00 04/02/19 10:42 Risperdal PO 1 mg DAILY SANCHEZ Administration Scopolamine 1 each 03/13/19 04:00 03/31/19 03:31 Transderm-Scop TD 1 each Q3D SANCHEZ Administration Sertraline HCl 100 mg 02/25/19 13:00 04/02/19 10:42 Zoloft PO 100 mg DAILY SANCHEZ Administration Simple Syrup 15 ml 03/05/19 14:04 Simple Syrup FEEDTUBE PRN PRN Hypoglycemia Simple Syrup 30 ml 03/05/19 14:04 Simple Syrup FEEDTUBE PRN PRN Hypoglycemia Sodium Bicarbonate 325 mg 03/05/19 14:04 Sodium Bicarbonate FEEDTUBE PRN PRN For Clogged Feeding Tube Sodium Hypochlorite 1 applic 04/01/19 13:00 04/02/19 10:42 Dakin's Half Strength TP 1 applicatio BID SANCHEZ Administration Tramadol HCl 50 mg 03/05/19 10:08 04/01/19 05:42 Ultram PO 50 mg Q6H PRN Administration Pain, Moderate (4-6) Nutrition/Malnutrition Assess - Dietary Evaluation Nutrition/Malnutrition Findings: Nutrition Notes Start: 02/22/19 12:51 Freq: Status: Active Protocol: Document 03/28/19 11:19 LM (Rec: 03/28/19 11:24 LM [id number]) Nutrition Notes Labs/Tests Reviewed Pertinent Medications Reviewed Height 5 ft 10 in Weight 74.7 kg [place] Body Weight (kg) 75.45 BMI 23.6 Subjective/Other Information Nepro running at 50 ml/hr at time of visit. Pt is tolerating TF. Percent of energy/protein needs met: 96%/100% Burn Absent Trauma Absent #2 Nutrition Diagnosis Increased nutrient needs ( specify in comment below) Diagnosis Progress(for reassessment Continues documentation) #1 Nutrition Diagnosis Inadequate oral intake Diagnosis Progress(for reassessment Continues documentation) Is patient on ventilator? No Is Patient Ambulatory and/or Out of Bed No REE-([facility]-confined to bed) 1857.144 Kcal/Kg value to use for calculation 30 Approximate Energy Requirements Using 2241 kcal/Kg Calculation Used for Recommendations Kcal/kg Additional Notes Protein Needs: 90-112g (1.2-1. 5g/kg) Fluid Needs: 1-1.5 L/day Nutrition Intervention Change Diet Order: Continue TF Nutrition Support: Nepro with Carbsteady 1.8 at 50 ml/hr Flush 200 ml q4hr Kcal 2,160 Protein (gm) 97 Fluid (mL) 872 Add Supplement/Snack (indicate name/kcal Abhilash BID /protein ) Provides kCal: 190 Provides Protein (gm) 5 Goal #1 TF tolerance Goal #2 Continue to meet at least 80% of calorie and protein needs via TF Anticipated Discharge Needs: TF Follow-Up By: 04/03/19 Additional Comments F/U for new TF rate/tolerance
[2019-04-02] MEDS: traMADol 50 MG TAB PO PRN (21:34)
[2019-04-03] MEDS: SODIUM HYPOCHLORITE, DAKIN'S 1/2 STRENGTH (0.25%) 473 ML TOPICAL SOLN TP SCH ×3 (04:17→22:50)
[2019-04-03] MEDS: INSULIN REGULAR, HUMAN 100 UNITS/1 ML SUB-Q SCH ×3 (04:26→17:59)
[2019-04-03] MEDS: SCOPOLAMINE TRANSDERMAL PATCH 72 HR TD SCH (04:56)
[2019-04-03] MEDS: risperiDONE 1 MG TAB PO SCH (11:23)
[2019-04-03] MEDS: HEPARIN 5,000 UNIT/1 ML VIAL SUB-Q SCH ×2 (11:23→22:50)
[2019-04-03] MEDS: SERTRALINE 100 MG TAB PO SCH (11:23)
[2019-04-03] MEDS: FAMOTIDINE 20 MG TAB PO SCH (11:23)
--- NOTE | 2019-04-03 12:02 | Progress Note ---
Subjective Principal diagnosis: respiratory failure Interval history: Patient was seen today for follow-up of multiple renal related issues On hemodialysis, MWF Dialysis access has been working well Events of 24 hours vitals labs intake output medications were reviewed Past medical history: Reviewed Family history: Reviewed Social history: Reviewed Allergies: Reviewed Physical examination: Vitals: Reviewed HEENT:mild pallor or icterus oral mucosa moist Neck: Supple no JVD no thyromegaly Chest: Bilateral clear to auscultation anteriorly Heart: Regular rate and rhythm S1-S2 heard no S3-S4 Abdomen: Soft nontender no voluntary guarding rigidity rebound Extremity: Dry skin less than 1+ peripheral edema AV access: Has good flow, what appears to be somewhat tense and pulsatile Psychiatric: No evidence of agitation and aggression noted Overall patient appears to be ill appearing Labs and x-rays: Reviewed from today Assessment and plan ESRD: Patient will continue with hemodialysis treatment Saturday, Saturday and Saturday we will have vascular look at the fistula, which appears to be somewhat tense as of March 31, 2019 hemoglobin 8.2 better platelet count 361,000 stable potassium 4.1 creatinine 2.4 bicarbonate 33 calcium 10.3 Ultrafiltration only as tolerated on hemodialysis Continue to monitor dialysis related labs periodically Prognosis long-term very poor due to dialysis and multiple comorbidities Mortality risk, in my opinion both short and long-term both are high Multiple other comorbidities including pneumonia, status post tracheotomy, cardiomyopathy ejection fraction 35-40%, history of CVA, atrial fibrillation, decubitus ulceration Continue with supportive care We'll continue to follow and make recommendation for renal standpoint Objective - Vital Signs Vital signs: Vital Signs - 12hr 04/03/19 04/03/19 04/03/19 00:24 04:00 04:07 Temperature 98.0 F 98.0 F Pulse Rate 81 79 79 Respiratory 18 20 Rate Blood Pressure 137/64 130/66 O2 Sat by Pulse 96 98 Oximetry - Lab 03/31/19 10:26 03/31/19 10:26 Most recent lab results ABG pH 7.424 pH Units (7.350-7.450) 03/19/19 04:23 ABG pCO2 48.0 mm Hg 03/19/19 04:23 ABG pO2 78.3 mm Hg (80.0-90.0) L 03/19/19 04:23 ABG HCO3 30.7 mmol/L (20.0-26.0) H 03/19/19 04:23 ABG O2 Saturation 97.0 % (95.0-99.0) 03/19/19 04:23 Calcium 10.3 mg/dL (8.4-10.2) H 03/31/19 10:26 Phosphorus 4.30 mg/dL (2.5-4.5) D 03/31/19 10:26 Magnesium 2.70 mg/dL (1.7-2.3) H 03/30/19 10:13 Medications & Allergies - Medications Allergies/Adverse Reactions: Allergies haloperidol [From Haldol] Adverse Reaction (Verified 03/13/18 12:10) Unknown haloperidol lactate [From Haldol] Adverse Reaction (Verified 03/13/18 12:10) Unknown Home Medications: Home Medications Medication Instructions Recorded Confirmed Last Taken Type risperiDONE [RisperDAL] 1 mg PO QAM 03/13/18 02/21/19 Unknown History Sertraline [Zoloft] 100 mg PO QDAY 08/26/18 02/21/19 Unknown History Polyethylene Glycol 3350 [Miralax 17 gm PO QDAY #30 packet 11/05/18 02/21/19 Unknown Rx 3350] Aspirin EC [Halfprin EC] 81 mg PO DAILY #30 11/19/18 02/21/19 Unknown Rx Docusate Sodium [Colace CAP] 100 mg PO BID #60 11/19/18 02/21/19 Unknown Rx Folic Acid [Folvite] 1 mg PO DAILY #30 tab 11/19/18 02/21/19 Unknown Rx Famotidine [Pepcid] 20 mg PO DAILY tablet 12/08/18 02/21/19 Unknown Rx Gabapentin [Neurontin] 100 mg PO QHS capsule 12/08/18 02/21/19 Unknown Rx Metoprolol [Lopressor TAB] 50 mg PO BID 30 Days tablet 12/08/18 02/21/19 Unknown Rx Sevelamer Carbonate [Renvela] 800 mg PO TIDWM tablet 12/08/18 02/21/19 Unknown Rx hydrALAZINE [Apresoline TAB] 100 mg PO Q8HR #120 tablet 12/08/18 02/21/19 Unknown Rx Acetaminophen [Acetaminophen TAB] 650 mg PO Q12H PRN 12/15/18 02/21/19 Unknown History Glucagon,Human Recombinant 1 mg IJ Q15MIN PRN 12/15/18 02/21/19 Unknown History [Glucagon Emergency Kit] Insulin Aspart [NovoLOG 100 See Protocol SQ QWEEK 12/15/18 02/21/19 Unknown History UNITS/ML VIAL] Active Medications: Generic Name Dose Route Start Last Admin Trade Name Freq PRN Reason Stop Dose Admin Albuterol/Ipratropium 1 ampul 02/24/19 20:00 04/02/19 21:24 Duoneb *Not For Prn Use* IH 1 ampul TIDRT SANCHEZ Administration Lipase/Protease/Amylase 1 each 03/05/19 14:04 04/02/19 21:34 Pancreaze 10,500 Unit FEEDTUBE 1 each PRN PRN Administration For Clogged Feeding Tube Epoetin Solitario 20,000 unit 03/24/19 11:17 04/01/19 09:51 Procrit IV 20,000 unit UMA PRN Administration hemodialysis Famotidine 20 mg 02/23/19 10:00 04/03/19 11:23 Pepcid PO 20 mg DAILY SANCHEZ Administration Heparin Sodium (Porcine) 5,000 unit 03/04/19 22:00 04/03/19 11:23 Heparin SUB-Q 5,000 unit Q12HR SANCHEZ Administration Hydrophilic Ointment 1 applic 02/21/19 18:24 03/05/19 08:16 Vaseline Lip Therapy TP 1 applic Q2HR PRN Administration Dry Lips Sodium Chloride 100 mls @ 999 mls/hr 02/26/19 09:00 Nacl 0.9% IV UMA PRN Hypotension Insulin Human Regular 0 units 02/26/19 12:00 04/03/19 08:18 Humulin R SUB-Q Not Given Q6HR [facility] Protocol Metoprolol Tartrate 2.5 mg 02/28/19 12:06 03/15/19 05:15 Lopressor IV 2.5 mg Q4HR PRN Administration Tachycardia Multi-Ingred Cream/Lotion/Oil/Oint 1 applic 02/21/19 18:24 03/29/19 21:40 Artificial Tears Ophth Oint OU 1 applic Q4HR PRN Administration Dry Eye(s) Risperidone 1 mg 02/25/19 13:00 04/03/19 11:23 Risperdal PO 1 mg DAILY SANCHEZ Administration Scopolamine 1 each 03/13/19 04:00 04/03/19 04:56 Transderm-Scop TD 1 each Q3D SANCHEZ Administration Sertraline HCl 100 mg 02/25/19 13:00 04/03/19 11:23 Zoloft PO 100 mg DAILY SANCHEZ Administration Simple Syrup 15 ml 03/05/19 14:04 Simple Syrup FEEDTUBE PRN PRN Hypoglycemia Simple Syrup 30 ml 03/05/19 14:04 04/02/19 21:33 Simple Syrup FEEDTUBE 30 ml PRN PRN Administration Hypoglycemia Sodium Bicarbonate 325 mg 03/05/19 14:04 04/02/19 21:34 Sodium Bicarbonate FEEDTUBE 325 mg PRN PRN Administration For Clogged Feeding Tube Sodium Hypochlorite 1 applic 04/01/19 13:00 04/03/19 04:17 Dakin's Half Strength TP 50 applicatio BID SANCHEZ Administration Tramadol HCl 50 mg 03/05/19 10:08 04/02/19 21:34 Ultram PO 50 mg Q6H PRN Administration Pain, Moderate (4-6)
--- NOTE | 2019-04-03 13:09 | Progress Note ---
Assessment and Plan Imp: 1. Acute encephalopathy, probably metabolic or toxic 2. A/C systolic CHF 3. Dilated CMP 4. Pulm HTN 5. ESRD 6. RUL atelectasis, probably mucous plugging -> resolved 7. KEON pneumonia Rec: 1. Chest PT, Duonebs 2. Tolerating Tpiece; monitor 3. Avoid sedatives; resumed psych meds 4. DVT and GI PPx 5. TFs per PEG 6. HD per renal 7. Agree w/ DNR as per family wishes Await placement No family present Subjective Date of service: 04/03/19 Principal diagnosis: respiratory failure Interval history: No events. Mentation near usual poor baseline. Does response to basic questions but cannot give hx. On 28% per Tpiece. Active Medications Albuterol/Ipratropium (Duoneb *Not For Prn Use*) 1 ampul IH TIDRT [facility] Last Admin: 04/03/19 21:46 Dose: Not Given Documented by: Lipase/Protease/Amylase ([place] 10,500 Unit) 1 each FEEDTUBE PRN PRN PRN Reason: For Clogged Feeding Tube Last Admin: 04/02/19 21:34 Dose: 1 each Documented by: Epoetin Solitario (Procrit) 20,000 unit IV UMA PRN PRN Reason: hemodialysis Last Admin: 04/03/19 21:15 Dose: 20,000 unit Documented by: Famotidine (Pepcid) 20 mg PO DAILY [facility] Last Admin: 04/03/19 11:23 Dose: 20 mg Documented by: Heparin Sodium (Porcine) (Heparin) 5,000 unit SUB-Q Q12HR [facility] Last Admin: 04/03/19 22:50 Dose: 5,000 unit Documented by: Hydrophilic Ointment (Vaseline Lip Therapy) 1 applic TP Q2HR PRN PRN Reason: Dry Lips Last Admin: 03/05/19 08:16 Dose: 1 applic Documented by: Sodium Chloride (Nacl 0.9%) 100 mls @ 999 mls/hr IV UMA PRN PRN Reason: Hypotension Insulin Human Regular (Humulin R) 0 units SUB-Q Q6HR [facility]; Protocol Last Admin: 04/03/19 17:59 Dose: Not Given Documented by: Metoprolol Tartrate (Lopressor) 2.5 mg IV Q4HR PRN PRN Reason: Tachycardia Last Admin: 03/15/19 05:15 Dose: 2.5 mg Documented by: Multi-Ingred Cream/Lotion/Oil/Oint (Artificial Tears Ophth Oint) 1 applic OU Q4HR PRN PRN Reason: Dry Eye(s) Last Admin: 03/29/19 21:40 Dose: 1 applic Documented by: Risperidone (Risperdal) 1 mg PO DAILY [facility] Last Admin: 04/03/19 11:23 Dose: 1 mg Documented by: Scopolamine (Transderm-Scop) 1 each TD Q3D [facility] Last Admin: 04/03/19 04:56 Dose: 1 each Documented by: Sertraline HCl (Zoloft) 100 mg PO DAILY [facility] Last Admin: 04/03/19 11:23 Dose: 100 mg Documented by: Simple Syrup (Simple Syrup) 15 ml FEEDTUBE PRN PRN PRN Reason: Hypoglycemia Simple Syrup (Simple Syrup) 30 ml FEEDTUBE PRN PRN PRN Reason: Hypoglycemia Last Admin: 04/02/19 21:33 Dose: 30 ml Documented by: Sodium Bicarbonate (Sodium Bicarbonate) 325 mg FEEDTUBE PRN PRN PRN Reason: For Clogged Feeding Tube Last Admin: 04/02/19 21:34 Dose: 325 mg Documented by: Sodium Hypochlorite (Dakin's Half Strength) 1 applic TP BID [facility] Last Admin: 04/03/19 18:00 Dose: 1 applicatio Documented by: Tramadol HCl (Ultram) 50 mg PO Q6H PRN PRN Reason: Pain, Moderate (4-6) Last Admin: 04/02/19 21:34 Dose: 50 mg Documented by: Objective Vital Signs - 12hr 04/03/19 04/03/19 04:00 04:07 Temperature 98.0 F Pulse Rate 79 79 Respiratory 20 Rate Blood Pressure 130/66 O2 Sat by Pulse 98 Oximetry Constitutional: no acute distress, alert Eyes: non-icteric ENT: oropharynx moist Neck: supple Effort: normal Ascultation: Bilateral: other (coarse BS bilaterally) Percussion: Bilateral: not dull Cardiovascular: other (tachy, RR; no mrg) Gastrointestinal: normoactive bowel sounds, soft, non-tender, non-distended, other (ostomy in place, brown stool) Extremities: no cyanosis, no edema, pink and warm Neurologic: other (mild weakness LUE, o/w nonfocal) Psychiatric: other (unable to assess) CBC and BMP: 03/31/19 10:26 03/31/19 10:26 ABG, PT/INR, D-dimer: ABG POC ABG pH 7.510 (7.35-7.45) H 03/18/19 06:38 ABG pH 7.424 pH Units (7.350-7.450) 03/19/19 04:23 POC ABG pCO2 38.9 (35-45) 03/18/19 06:38 ABG pCO2 48.0 mm Hg 03/19/19 04:23 POC ABG pO2 164 (80-105) H 03/18/19 06:38 ABG pO2 78.3 mm Hg (80.0-90.0) L 03/19/19 04:23 POC ABG HCO3 31.0 (22-26 mml/L) 03/18/19 06:38 POC ABG Total CO2 32 (23-27mmol/L) 03/18/19 06:38 POC ABG O2 Sat 100 03/18/19 06:38 ABG O2 Saturation 97.0 % (95.0-99.0) 03/19/19 04:23 PT/INR, D-dimer PT 16.3 Sec. (12.2-14.9) H 03/01/19 09:39 INR 1.35 (0.87-1.13) H 03/01/19 09:39 2987.82 ng/mlDDU (0-234) H 02/22/19 05:54 Abnormal lab findings: Abnormal Labs 02/21/19 02/21/19 02/21/19 18:30 18:30 18:30 WBC RBC 3.26 L Hgb 8.8 L Hct 29.0 L MCH 27 L MCHC 30 L RDW 19.1 H Lymph % (Auto) 6.1 L [place] % (Auto) Eos % (Auto) Lymph # 0.4 L [place] # Eos # Seg Neutrophils % 86.2 H Seg Neuts % (Manual) Lymphocytes % (Manual) Eosinophils % (Manual) Seg Neutrophils # Lymphocytes # (Manual) Eosinophils # (Manual) PT INR D-Dimer POC ABG pH POC ABG pCO2 POC ABG pO2 ABG pO2 ABG HCO3 ABG Base Excess ABG Hemoglobin Oxyhemoglobin Sodium 133 L Potassium 3.3 L Chloride 93.1 L Carbon Dioxide 33 H BUN Creatinine Glucose 161 H POC Glucose Calcium Phosphorus Magnesium ALT Alkaline Phosphatase 136 H Total Creatine Kinase 37 L CK-MB (CK-2) Rel Index Troponin T 0.192 H* Albumin 2.4 L LDL Cholesterol Direct 36 L PTH Intact Salicylates Acetaminophen Crossmatch 02/21/19 02/21/19 02/21/19 18:42 20:04 20:04 WBC RBC Hgb Hct MCH MCHC RDW Lymph % (Auto) [place] % (Auto) Eos % (Auto) Lymph # [place] # Eos # Seg Neutrophils % Seg Neuts % (Manual) Lymphocytes % (Manual) Eosinophils % (Manual) Seg Neutrophils # Lymphocytes # (Manual) Eosinophils # (Manual) PT INR D-Dimer POC ABG pH POC ABG pCO2 56.7 H POC ABG pO2 291 H ABG pO2 ABG HCO3 ABG Base Excess ABG Hemoglobin Oxyhemoglobin Sodium Potassium Chloride Carbon Dioxide BUN Creatinine Glucose POC Glucose Calcium Phosphorus Magnesium ALT Alkaline Phosphatase Total Creatine Kinase CK-MB (CK-2) Rel Index Troponin T Albumin LDL Cholesterol Direct PTH Intact Salicylates < 0.3 L Acetaminophen < 5.0 L Crossmatch 02/21/19 02/22/19 02/22/19 22:35 03:42 03:42 WBC RBC 3.20 L Hgb 8.8 L Hct 27.6 L MCH MCHC RDW 18.9 H Lymph % (Auto) 7.4 L [place] % (Auto) Eos % (Auto) Lymph # 0.7 L [place] # Eos # Seg Neutrophils % 84.7 H Seg Neuts % (Manual) Lymphocytes % (Manual) Eosinophils % (Manual) Seg Neutrophils # Lymphocytes # (Manual) Eosinophils # (Manual) PT INR D-Dimer POC ABG pH POC ABG pCO2 POC ABG pO2 ABG pO2 ABG HCO3 ABG Base Excess ABG Hemoglobin Oxyhemoglobin Sodium 134 L Potassium 2.6 L* D Chloride Carbon Dioxide BUN Creatinine Glucose POC Glucose Calcium Phosphorus Magnesium ALT Alkaline Phosphatase Total Creatine Kinase CK-MB (CK-2) Rel Index 5.2 H Troponin T 0.202 H* Albumin LDL Cholesterol Direct PTH Intact Salicylates Acetaminophen Crossmatch 02/22/19 02/22/19 02/22/19 03:42 05:54 09:04 WBC RBC Hgb Hct MCH MCHC RDW Lymph % (Auto) [place] % (Auto) Eos % (Auto) Lymph # [place] # Eos # Seg Neutrophils % Seg Neuts % (Manual) Lymphocytes % (Manual) Eosinophils % (Manual) Seg Neutrophils # Lymphocytes # (Manual) Eosinophils # (Manual) PT INR D-Dimer 2987.82 H POC ABG pH 7.451 H POC ABG pCO2 POC ABG pO2 ABG pO2 ABG HCO3 ABG Base Excess ABG Hemoglobin Oxyhemoglobin Sodium Potassium Chloride Carbon Dioxide BUN Creatinine Glucose POC Glucose Calcium Phosphorus Magnesium ALT Alkaline Phosphatase Total Creatine Kinase CK-MB (CK-2) Rel Index 5.7 H Troponin T 0.193 H* Albumin LDL Cholesterol Direct PTH Intact Salicylates Acetaminophen Crossmatch 02/22/19 02/22/19 02/23/19 10:36 23:56 00:52 WBC RBC Hgb Hct MCH MCHC RDW Lymph % (Auto) [place] % (Auto) Eos % (Auto) Lymph # [place] # Eos # Seg Neutrophils % Seg Neuts % (Manual) Lymphocytes % (Manual) Eosinophils % (Manual) Seg Neutrophils # Lymphocytes # (Manual) Eosinophils # (Manual) PT INR D-Dimer POC ABG pH POC ABG pCO2 POC ABG pO2 ABG pO2 ABG HCO3 ABG Base Excess ABG Hemoglobin Oxyhemoglobin Sodium Potassium 3.1 L Chloride Carbon Dioxide BUN Creatinine Glucose POC Glucose 58 L 111 H Calcium Phosphorus Magnesium ALT Alkaline Phosphatase Total Creatine Kinase CK-MB (CK-2) Rel Index Troponin T Albumin LDL Cholesterol Direct PTH Intact Salicylates Acetaminophen Crossmatch 02/23/19 02/23/19 02/23/19 05:00 06:35 14:26 WBC RBC Hgb Hct MCH MCHC RDW Lymph % (Auto) [place] % (Auto) Eos % (Auto) Lymph # [place] # Eos # Seg Neutrophils % Seg Neuts % (Manual) Lymphocytes % (Manual) Eosinophils % (Manual) Seg Neutrophils # Lymphocytes # (Manual) Eosinophils # (Manual) PT INR D-Dimer POC ABG pH POC ABG pCO2 POC ABG pO2 ABG pO2 ABG HCO3 ABG Base Excess ABG Hemoglobin Oxyhemoglobin Sodium 135 L Potassium 3.1 L Chloride Carbon Dioxide BUN 21 H Creatinine 2.0 H Glucose 57 L POC Glucose 64 L 62 L Calcium Phosphorus Magnesium ALT Alkaline Phosphatase Total Creatine Kinase CK-MB (CK-2) Rel Index Troponin T Albumin LDL Cholesterol Direct PTH Intact Salicylates Acetaminophen Crossmatch 02/24/19 02/24/19 02/24/19 02:11 04:12 04:55 WBC RBC 2.84 L Hgb 7.8 L Hct 24.5 L MCH MCHC RDW 19.5 H Lymph % (Auto) [place] % (Auto) Eos % (Auto) Lymph # [place] # Eos # Seg Neutrophils % Seg Neuts % (Manual) Lymphocytes % (Manual) Eosinophils % (Manual) Seg Neutrophils # Lymphocytes # (Manual) Eosinophils # (Manual) PT INR D-Dimer POC ABG pH 7.511 H POC ABG pCO2 33.9 L POC ABG pO2 62 L ABG pO2 ABG HCO3 ABG Base Excess ABG Hemoglobin Oxyhemoglobin Sodium Potassium Chloride Carbon Dioxide BUN Creatinine Glucose POC Glucose 69 L Calcium Phosphorus Magnesium ALT Alkaline Phosphatase Total Creatine Kinase CK-MB (CK-2) Rel Index Troponin T Albumin LDL Cholesterol Direct PTH Intact Salicylates Acetaminophen Crossmatch 02/24/19 02/24/19 02/25/19 04:55 05:41 04:45 WBC RBC Hgb Hct MCH MCHC RDW Lymph % (Auto) [place] % (Auto) Eos % (Auto) Lymph # [place] # Eos # Seg Neutrophils % Seg Neuts % (Manual) Lymphocytes % (Manual) Eosinophils % (Manual) Seg Neutrophils # Lymphocytes # (Manual) Eosinophils # (Manual) PT INR D-Dimer POC ABG pH 7.466 H POC ABG pCO2 POC ABG pO2 75 L ABG pO2 ABG HCO3 ABG Base Excess ABG Hemoglobin Oxyhemoglobin Sodium Potassium Chloride Carbon Dioxide BUN Creatinine 1.8 H Glucose 73 L POC Glucose 127 H Calcium Phosphorus Magnesium ALT Alkaline Phosphatase Total Creatine Kinase CK-MB (CK-2) Rel Index Troponin T Albumin LDL Cholesterol Direct PTH Intact Salicylates Acetaminophen Crossmatch 02/25/19 02/25/19 02/26/19 16:34 21:33 03:45 WBC RBC 2.96 L Hgb 8.0 L Hct 25.8 L MCH 27 L MCHC 31 L RDW 20.0 H Lymph % (Auto) [place] % (Auto) Eos % (Auto) Lymph # [place] # Eos # Seg Neutrophils % Seg Neuts % (Manual) Lymphocytes % (Manual) Eosinophils % (Manual) Seg Neutrophils # Lymphocytes # (Manual) Eosinophils # (Manual) PT INR D-Dimer POC ABG pH POC ABG pCO2 POC ABG pO2 ABG pO2 ABG HCO3 ABG Base Excess ABG Hemoglobin Oxyhemoglobin Sodium Potassium Chloride Carbon Dioxide BUN Creatinine Glucose POC Glucose 141 H 106 H Calcium Phosphorus Magnesium ALT Alkaline Phosphatase Total Creatine Kinase CK-MB (CK-2) Rel Index Troponin T Albumin LDL Cholesterol Direct PTH Intact Salicylates Acetaminophen Crossmatch 02/26/19 02/26/19 02/26/19 03:45 04:13 07:53 WBC RBC Hgb Hct MCH MCHC RDW Lymph % (Auto) [place] % (Auto) Eos % (Auto) Lymph # [place] # Eos # Seg Neutrophils % Seg Neuts % (Manual) Lymphocytes % (Manual) Eosinophils % (Manual) Seg Neutrophils # Lymphocytes # (Manual) Eosinophils # (Manual) PT INR D-Dimer POC ABG pH 7.470 H POC ABG pCO2 POC ABG pO2 ABG pO2 ABG HCO3 ABG Base Excess ABG Hemoglobin Oxyhemoglobin Sodium Potassium Chloride Carbon Dioxide BUN Creatinine 1.8 H Glucose POC Glucose 110 H Calcium Phosphorus Magnesium ALT Alkaline Phosphatase Total Creatine Kinase CK-MB (CK-2) Rel Index Troponin T Albumin LDL Cholesterol Direct PTH Intact Salicylates Acetaminophen Crossmatch 02/26/19 02/26/19 02/27/19 11:56 17:43 00:12 WBC RBC Hgb Hct MCH MCHC RDW Lymph % (Auto) [place] % (Auto) Eos % (Auto) Lymph # [place] # Eos # Seg Neutrophils % Seg Neuts % (Manual) Lymphocytes % (Manual) Eosinophils % (Manual) Seg Neutrophils # Lymphocytes # (Manual) Eosinophils # (Manual) PT INR D-Dimer POC ABG pH POC ABG pCO2 POC ABG pO2 ABG pO2 ABG HCO3 ABG Base Excess ABG Hemoglobin Oxyhemoglobin Sodium Potassium Chloride Carbon Dioxide BUN Creatinine Glucose POC Glucose 112 H 127 H 127 H Calcium Phosphorus Magnesium ALT Alkaline Phosphatase Total Creatine Kinase CK-MB (CK-2) Rel Index Troponin T Albumin LDL Cholesterol Direct PTH Intact Salicylates Acetaminophen Crossmatch 02/27/19 02/27/19 02/27/19 04:35 13:15 18:02 WBC RBC Hgb Hct MCH MCHC RDW Lymph % (Auto) [place] % (Auto) Eos % (Auto) Lymph # [place] # Eos # Seg Neutrophils % Seg Neuts % (Manual) Lymphocytes % (Manual) Eosinophils % (Manual) Seg Neutrophils # Lymphocytes # (Manual) Eosinophils # (Manual) PT INR D-Dimer POC ABG pH 7.483 H POC ABG pCO2 POC ABG pO2 61 L ABG pO2 ABG HCO3 ABG Base Excess ABG Hemoglobin Oxyhemoglobin Sodium Potassium Chloride Carbon Dioxide BUN Creatinine Glucose POC Glucose 143 H 106 H Calcium Phosphorus Magnesium ALT Alkaline Phosphatase Total Creatine Kinase CK-MB (CK-2) Rel Index Troponin T Albumin LDL Cholesterol Direct PTH Intact Salicylates Acetaminophen Crossmatch 02/28/19 02/28/19 02/28/19 05:50 11:59 17:52 WBC RBC Hgb Hct MCH MCHC RDW Lymph % (Auto) [place] % (Auto) Eos % (Auto) Lymph # [place] # Eos # Seg Neutrophils % Seg Neuts % (Manual) Lymphocytes % (Manual) Eosinophils % (Manual) Seg Neutrophils # Lymphocytes # (Manual) Eosinophils # (Manual) PT INR D-Dimer POC ABG pH POC ABG pCO2 POC ABG pO2 ABG pO2 ABG HCO3 ABG Base Excess ABG Hemoglobin Oxyhemoglobin Sodium Potassium Chloride Carbon Dioxide BUN Creatinine Glucose POC Glucose 134 H 128 H 142 H Calcium Phosphorus Magnesium ALT Alkaline Phosphatase Total Creatine Kinase CK-MB (CK-2) Rel Index Troponin T Albumin LDL Cholesterol Direct PTH Intact Salicylates Acetaminophen Crossmatch 02/28/19 03/01/19 03/01/19 23:13 05:40 09:39 WBC RBC Hgb Hct MCH MCHC RDW Lymph % (Auto) [place] % (Auto) Eos % (Auto) Lymph # [place] # Eos # Seg Neutrophils % Seg Neuts % (Manual) Lymphocytes % (Manual) Eosinophils % (Manual) Seg Neutrophils # Lymphocytes # (Manual) Eosinophils # (Manual) PT 16.3 H INR 1.35 H D-Dimer POC ABG pH POC ABG pCO2 POC ABG pO2 ABG pO2 ABG HCO3 ABG Base Excess ABG Hemoglobin Oxyhemoglobin Sodium Potassium Chloride Carbon Dioxide BUN Creatinine Glucose POC Glucose 112 H 111 H Calcium Phosphorus Magnesium ALT Alkaline Phosphatase Total Creatine Kinase CK-MB (CK-2) Rel Index Troponin T Albumin LDL Cholesterol Direct PTH Intact Salicylates Acetaminophen Crossmatch 03/01/19 03/01/19 03/01/19 11:56 13:54 17:59 WBC RBC Hgb Hct MCH MCHC RDW Lymph % (Auto) [place] % (Auto) Eos % (Auto) Lymph # [place] # Eos # Seg Neutrophils % Seg Neuts % (Manual) Lymphocytes % (Manual) Eosinophils % (Manual) Seg Neutrophils # Lymphocytes # (Manual) Eosinophils # (Manual) PT INR D-Dimer POC ABG pH POC ABG pCO2 POC ABG pO2 ABG pO2 ABG HCO3 ABG Base Excess ABG Hemoglobin Oxyhemoglobin Sodium Potassium Chloride Carbon Dioxide BUN 33 H Creatinine 2.8 H D Glucose 176 H POC Glucose 199 H 147 H Calcium Phosphorus Magnesium ALT Alkaline Phosphatase Total Creatine Kinase CK-MB (CK-2) Rel Index Troponin T Albumin LDL Cholesterol Direct PTH Intact Salicylates Acetaminophen Crossmatch 03/02/19 03/02/19 03/02/19 05:15 05:15 05:15 WBC RBC 2.73 L Hgb 7.4 L Hct 23.0 L MCH 27 L MCHC RDW 19.9 H Lymph % (Auto) [place] % (Auto) 7.9 H Eos % (Auto) 7.6 H Lymph # 1.0 L [place] # Eos # 0.5 H Seg Neutrophils % Seg Neuts % (Manual) Lymphocytes % (Manual) Eosinophils % (Manual) Seg Neutrophils # Lymphocytes # (Manual) Eosinophils # (Manual) PT INR D-Dimer POC ABG pH POC ABG pCO2 POC ABG pO2 ABG pO2 ABG HCO3 ABG Base Excess ABG Hemoglobin Oxyhemoglobin Sodium Potassium Chloride Carbon Dioxide BUN 43 H Creatinine 3.2 H Glucose POC Glucose Calcium Phosphorus 2.30 L Magnesium ALT Alkaline Phosphatase Total Creatine Kinase CK-MB (CK-2) Rel Index Troponin T Albumin LDL Cholesterol Direct PTH Intact 267.6 H Salicylates Acetaminophen Crossmatch 03/02/19 03/02/19 03/03/19 12:32 18:20 13:30 WBC RBC Hgb Hct MCH MCHC RDW Lymph % (Auto) [place] % (Auto) Eos % (Auto) Lymph # [place] # Eos # Seg Neutrophils % Seg Neuts % (Manual) Lymphocytes % (Manual) Eosinophils % (Manual) Seg Neutrophils # Lymphocytes # (Manual) Eosinophils # (Manual) PT INR D-Dimer POC ABG pH POC ABG pCO2 POC ABG pO2 ABG pO2 ABG HCO3 ABG Base Excess ABG Hemoglobin Oxyhemoglobin Sodium Potassium Chloride 97.3 L Carbon Dioxide BUN 26 H Creatinine 2.2 H Glucose 73 L POC Glucose 111 H 156 H Calcium Phosphorus Magnesium ALT Alkaline Phosphatase Total Creatine Kinase CK-MB (CK-2) Rel Index Troponin T Albumin LDL Cholesterol Direct PTH Intact Salicylates Acetaminophen Crossmatch 03/04/19 03/04/19 03/04/19 00:02 05:37 05:40 WBC RBC 2.63 L Hgb 7.2 L Hct 22.2 L MCH MCHC RDW 20.2 H Lymph % (Auto) 10.5 L [place] % (Auto) Eos % (Auto) 4.6 H Lymph # 0.7 L [place] # Eos # Seg Neutrophils % 76.9 H Seg Neuts % (Manual) Lymphocytes % (Manual) Eosinophils % (Manual) Seg Neutrophils # Lymphocytes # (Manual) Eosinophils # (Manual) PT INR D-Dimer POC ABG pH POC ABG pCO2 POC ABG pO2 ABG pO2 ABG HCO3 ABG Base Excess ABG Hemoglobin Oxyhemoglobin Sodium Potassium Chloride Carbon Dioxide BUN Creatinine Glucose POC Glucose 136 H 123 H Calcium Phosphorus Magnesium ALT Alkaline Phosphatase Total Creatine Kinase CK-MB (CK-2) Rel Index Troponin T Albumin LDL Cholesterol Direct PTH Intact Salicylates Acetaminophen Crossmatch 03/04/19 03/04/19 03/04/19 05:40 11:39 23:20 WBC RBC Hgb Hct MCH MCHC RDW Lymph % (Auto) [place] % (Auto) Eos % (Auto) Lymph # [place] # Eos # Seg Neutrophils % Seg Neuts % (Manual) Lymphocytes % (Manual) Eosinophils % (Manual) Seg Neutrophils # Lymphocytes # (Manual) Eosinophils # (Manual) PT INR D-Dimer POC ABG pH POC ABG pCO2 POC ABG pO2 ABG pO2 ABG HCO3 ABG Base Excess ABG Hemoglobin Oxyhemoglobin Sodium Potassium Chloride Carbon Dioxide BUN 34 H Creatinine 2.7 H Glucose 114 H POC Glucose 175 H 151 H Calcium Phosphorus Magnesium ALT Alkaline Phosphatase Total Creatine Kinase CK-MB (CK-2) Rel Index Troponin T Albumin LDL Cholesterol Direct PTH Intact Salicylates Acetaminophen Crossmatch 03/05/19 03/05/19 03/05/19 05:37 12:08 17:11 WBC RBC Hgb Hct MCH MCHC RDW Lymph % (Auto) [place] % (Auto) Eos % (Auto) Lymph # [place] # Eos # Seg Neutrophils % Seg Neuts % (Manual) Lymphocytes % (Manual) Eosinophils % (Manual) Seg Neutrophils # Lymphocytes # (Manual) Eosinophils # (Manual) PT INR D-Dimer POC ABG pH POC ABG pCO2 POC ABG pO2 ABG pO2 ABG HCO3 ABG Base Excess ABG Hemoglobin Oxyhemoglobin Sodium Potassium Chloride Carbon Dioxide BUN Creatinine Glucose POC Glucose 134 H 135 H 135 H Calcium Phosphorus Magnesium ALT Alkaline Phosphatase Total Creatine Kinase CK-MB (CK-2) Rel Index Troponin T Albumin LDL Cholesterol Direct PTH Intact Salicylates Acetaminophen Crossmatch 03/06/19 03/06/19 03/06/19 00:16 13:05 18:09 WBC RBC Hgb Hct MCH MCHC RDW Lymph % (Auto) [place] % (Auto) Eos % (Auto) Lymph # [place] # Eos # Seg Neutrophils % Seg Neuts % (Manual) Lymphocytes % (Manual) Eosinophils % (Manual) Seg Neutrophils # Lymphocytes # (Manual) Eosinophils # (Manual) PT INR D-Dimer POC ABG pH POC ABG pCO2 POC ABG pO2 ABG pO2 ABG HCO3 ABG Base Excess ABG Hemoglobin Oxyhemoglobin Sodium Potassium Chloride Carbon Dioxide BUN Creatinine Glucose POC Glucose 117 H 113 H 131 H Calcium Phosphorus Magnesium ALT Alkaline Phosphatase Total Creatine Kinase CK-MB (CK-2) Rel Index Troponin T Albumin LDL Cholesterol Direct PTH Intact Salicylates Acetaminophen Crossmatch 03/07/19 03/08/19 03/08/19 05:25 05:33 16:00 WBC RBC 2.44 L Hgb 6.6 L Hct 20.8 L MCH 27 L MCHC RDW 19.2 H Lymph % (Auto) [place] % (Auto) Eos % (Auto) 8.6 H Lymph # 0.8 L [place] # Eos # 0.5 H Seg Neutrophils % 70.7 H Seg Neuts % (Manual) Lymphocytes % (Manual) Eosinophils % (Manual) Seg Neutrophils # Lymphocytes # (Manual) Eosinophils # (Manual) PT INR D-Dimer POC ABG pH POC ABG pCO2 POC ABG pO2 ABG pO2 ABG HCO3 ABG Base Excess ABG Hemoglobin Oxyhemoglobin Sodium Potassium Chloride Carbon Dioxide BUN Creatinine Glucose POC Glucose 106 H 108 H Calcium Phosphorus Magnesium ALT Alkaline Phosphatase Total Creatine Kinase CK-MB (CK-2) Rel Index Troponin T Albumin LDL Cholesterol Direct PTH Intact Salicylates Acetaminophen Crossmatch 03/08/19 03/08/19 03/08/19 16:00 18:38 Unknown WBC RBC Hgb Hct MCH MCHC RDW Lymph % (Auto) [place] % (Auto) Eos % (Auto) Lymph # [place] # Eos # Seg Neutrophils % Seg Neuts % (Manual) Lymphocytes % (Manual) Eosinophils % (Manual) Seg Neutrophils # Lymphocytes # (Manual) Eosinophils # (Manual) PT INR D-Dimer POC ABG pH POC ABG pCO2 POC ABG pO2 ABG pO2 ABG HCO3 ABG Base Excess ABG Hemoglobin Oxyhemoglobin Sodium Potassium 5.4 H D Chloride Carbon Dioxide BUN 47 H Creatinine 2.6 H Glucose POC Glucose 123 H Calcium Phosphorus Magnesium ALT < 5 L Alkaline Phosphatase Total Creatine Kinase CK-MB (CK-2) Rel Index Troponin T Albumin 2.2 L LDL Cholesterol Direct PTH Intact Salicylates Acetaminophen Crossmatch See Detail 03/09/19 03/09/19 03/09/19 10:48 12:28 13:53 WBC RBC 2.85 L Hgb 7.7 L Hct 24.2 L MCH 27 L MCHC RDW 18.7 H Lymph % (Auto) [place] % (Auto) Eos % (Auto) Lymph # [place] # Eos # Seg Neutrophils % Seg Neuts % (Manual) Lymphocytes % (Manual) Eosinophils % (Manual) Seg Neutrophils # Lymphocytes # (Manual) Eosinophils # (Manual) PT INR D-Dimer POC ABG pH POC ABG pCO2 POC ABG pO2 ABG pO2 ABG HCO3 30.5 H ABG Base Excess 5.6 H ABG Hemoglobin 8.1 L Oxyhemoglobin 93.8 L Sodium Potassium Chloride Carbon Dioxide BUN Creatinine Glucose POC Glucose 114 H Calcium Phosphorus Magnesium ALT Alkaline Phosphatase Total Creatine Kinase CK-MB (CK-2) Rel Index Troponin T Albumin LDL Cholesterol Direct PTH Intact Salicylates Acetaminophen Crossmatch 03/09/19 03/09/19 03/10/19 17:58 23:53 12:01 WBC RBC Hgb Hct MCH MCHC RDW Lymph % (Auto) [place] % (Auto) Eos % (Auto) Lymph # [place] # Eos # Seg Neutrophils % Seg Neuts % (Manual) Lymphocytes % (Manual) Eosinophils % (Manual) Seg Neutrophils # Lymphocytes # (Manual) Eosinophils # (Manual) PT INR D-Dimer POC ABG pH POC ABG pCO2 POC ABG pO2 ABG pO2 ABG HCO3 ABG Base Excess ABG Hemoglobin Oxyhemoglobin Sodium Potassium Chloride Carbon Dioxide BUN Creatinine Glucose POC Glucose 108 H 128 H 144 H Calcium Phosphorus Magnesium ALT Alkaline Phosphatase Total Creatine Kinase CK-MB (CK-2) Rel Index Troponin T Albumin LDL Cholesterol Direct PTH Intact Salicylates Acetaminophen Crossmatch 03/10/19 03/11/19 03/11/19 16:50 00:24 05:02 WBC RBC Hgb Hct MCH MCHC RDW Lymph % (Auto) [place] % (Auto) Eos % (Auto) Lymph # [place] # Eos # Seg Neutrophils % Seg Neuts % (Manual) Lymphocytes % (Manual) Eosinophils % (Manual) Seg Neutrophils # Lymphocytes # (Manual) Eosinophils # (Manual) PT INR D-Dimer POC ABG pH POC ABG pCO2 POC ABG pO2 ABG pO2 ABG HCO3 ABG Base Excess ABG Hemoglobin Oxyhemoglobin Sodium Potassium Chloride Carbon Dioxide BUN Creatinine Glucose POC Glucose 147 H 123 H 120 H Calcium Phosphorus Magnesium ALT Alkaline Phosphatase Total Creatine Kinase CK-MB (CK-2) Rel Index Troponin T Albumin LDL Cholesterol Direct PTH Intact Salicylates Acetaminophen Crossmatch 03/11/19 03/11/19 03/11/19 11:56 12:20 18:37 WBC RBC Hgb Hct MCH MCHC RDW Lymph % (Auto) [place] % (Auto) Eos % (Auto) Lymph # [place] # Eos # Seg Neutrophils % Seg Neuts % (Manual) Lymphocytes % (Manual) Eosinophils % (Manual) Seg Neutrophils # Lymphocytes # (Manual) Eosinophils # (Manual) PT INR D-Dimer POC ABG pH POC ABG pCO2 POC ABG pO2 ABG pO2 ABG HCO3 ABG Base Excess ABG Hemoglobin Oxyhemoglobin Sodium Potassium 5.2 H Chloride Carbon Dioxide BUN Creatinine Glucose POC Glucose 123 H 125 H Calcium Phosphorus Magnesium ALT Alkaline Phosphatase Total Creatine Kinase CK-MB (CK-2) Rel Index Troponin T Albumin LDL Cholesterol Direct PTH Intact Salicylates Acetaminophen Crossmatch 03/11/19 03/12/19 03/12/19 22:52 12:04 18:25 WBC RBC Hgb Hct MCH MCHC RDW Lymph % (Auto) [place] % (Auto) Eos % (Auto) Lymph # [place] # Eos # Seg Neutrophils % Seg Neuts % (Manual) Lymphocytes % (Manual) Eosinophils % (Manual) Seg Neutrophils # Lymphocytes # (Manual) Eosinophils # (Manual) PT INR D-Dimer POC ABG pH POC ABG pCO2 POC ABG pO2 ABG pO2 ABG HCO3 ABG Base Excess ABG Hemoglobin Oxyhemoglobin Sodium Potassium Chloride Carbon Dioxide BUN Creatinine Glucose POC Glucose 110 H 106 H 118 H Calcium Phosphorus Magnesium ALT Alkaline Phosphatase Total Creatine Kinase CK-MB (CK-2) Rel Index Troponin T Albumin LDL Cholesterol Direct PTH Intact Salicylates Acetaminophen Crossmatch 03/12/19 03/13/19 03/13/19 23:36 04:38 04:38 WBC RBC 2.95 L Hgb 7.9 L Hct 24.9 L MCH 27 L MCHC RDW 19.9 H Lymph % (Auto) 11.1 L [place] % (Auto) 8.1 H Eos % (Auto) 4.4 H Lymph # 0.9 L [place] # Eos # Seg Neutrophils % 75.4 H Seg Neuts % (Manual) Lymphocytes % (Manual) Eosinophils % (Manual) Seg Neutrophils # Lymphocytes # (Manual) Eosinophils # (Manual) PT INR D-Dimer POC ABG pH POC ABG pCO2 POC ABG pO2 ABG pO2 ABG HCO3 ABG Base Excess ABG Hemoglobin Oxyhemoglobin Sodium 136 L Potassium 5.1 H Chloride 93.8 L Carbon Dioxide BUN 48 H Creatinine 2.7 H Glucose 102 H POC Glucose 115 H Calcium Phosphorus Magnesium ALT < 5 L Alkaline Phosphatase 143 H Total Creatine Kinase CK-MB (CK-2) Rel Index Troponin T Albumin 2.5 L LDL Cholesterol Direct PTH Intact Salicylates Acetaminophen Crossmatch 03/13/19 03/13/19 03/13/19 05:33 13:37 18:03 WBC RBC Hgb Hct MCH MCHC RDW Lymph % (Auto) [place] % (Auto) Eos % (Auto) Lymph # [place] # Eos # Seg Neutrophils % Seg Neuts % (Manual) Lymphocytes % (Manual) Eosinophils % (Manual) Seg Neutrophils # Lymphocytes # (Manual) Eosinophils # (Manual) PT INR D-Dimer POC ABG pH POC ABG pCO2 POC ABG pO2 ABG pO2 ABG HCO3 ABG Base Excess ABG Hemoglobin Oxyhemoglobin Sodium Potassium Chloride Carbon Dioxide BUN Creatinine Glucose POC Glucose 140 H 150 H 158 H Calcium Phosphorus Magnesium ALT Alkaline Phosphatase Total Creatine Kinase CK-MB (CK-2) Rel Index Troponin T Albumin LDL Cholesterol Direct PTH Intact Salicylates Acetaminophen Crossmatch 03/13/19 03/14/19 03/14/19 23:32 05:24 12:20 WBC RBC Hgb Hct MCH MCHC RDW Lymph % (Auto) [place] % (Auto) Eos % (Auto) Lymph # [place] # Eos # Seg Neutrophils % Seg Neuts % (Manual) Lymphocytes % (Manual) Eosinophils % (Manual) Seg Neutrophils # Lymphocytes # (Manual) Eosinophils # (Manual) PT INR D-Dimer POC ABG pH POC ABG pCO2 POC ABG pO2 ABG pO2 ABG HCO3 ABG Base Excess ABG Hemoglobin Oxyhemoglobin Sodium Potassium Chloride Carbon Dioxide BUN Creatinine Glucose POC Glucose 162 H 146 H 127 H Calcium Phosphorus Magnesium ALT Alkaline Phosphatase Total Creatine Kinase CK-MB (CK-2) Rel Index Troponin T Albumin LDL Cholesterol Direct PTH Intact Salicylates Acetaminophen Crossmatch 03/14/19 03/14/19 03/15/19 18:05 23:57 04:38 WBC 12.8 H RBC 3.11 L Hgb 8.1 L Hct 26.5 L MCH 26 L MCHC 31 L RDW 19.7 H Lymph % (Auto) 4.4 L [place] % (Auto) 7.4 H Eos % (Auto) Lymph # 0.6 L [place] # 0.9 H Eos # Seg Neutrophils % 87.3 H Seg Neuts % (Manual) Lymphocytes % (Manual) Eosinophils % (Manual) Seg Neutrophils # 11.2 H Lymphocytes # (Manual) Eosinophils # (Manual) PT INR D-Dimer POC ABG pH POC ABG pCO2 POC ABG pO2 ABG pO2 ABG HCO3 ABG Base Excess ABG Hemoglobin Oxyhemoglobin Sodium Potassium Chloride Carbon Dioxide BUN Creatinine Glucose POC Glucose 142 H 155 H Calcium Phosphorus Magnesium ALT Alkaline Phosphatase Total Creatine Kinase CK-MB (CK-2) Rel Index Troponin T Albumin LDL Cholesterol Direct PTH Intact Salicylates Acetaminophen Crossmatch 03/15/19 03/15/19 03/15/19 04:38 05:31 11:32 WBC RBC Hgb Hct MCH MCHC RDW Lymph % (Auto) [place] % (Auto) Eos % (Auto) Lymph # [place] # Eos # Seg Neutrophils % Seg Neuts % (Manual) Lymphocytes % (Manual) Eosinophils % (Manual) Seg Neutrophils # Lymphocytes # (Manual) Eosinophils # (Manual) PT INR D-Dimer POC ABG pH POC ABG pCO2 POC ABG pO2 ABG pO2 ABG HCO3 ABG Base Excess ABG Hemoglobin Oxyhemoglobin Sodium 135 L Potassium Chloride 91.9 L Carbon Dioxide BUN 54 H Creatinine 2.8 H Glucose 128 H POC Glucose 160 H 109 H Calcium 11.1 H Phosphorus Magnesium ALT Alkaline Phosphatase 161 H Total Creatine Kinase CK-MB (CK-2) Rel Index Troponin T Albumin 2.3 L LDL Cholesterol Direct PTH Intact Salicylates Acetaminophen Crossmatch 03/15/19 03/15/19 03/16/19 18:15 23:41 05:40 WBC RBC Hgb Hct MCH MCHC RDW Lymph % (Auto) [place] % (Auto) Eos % (Auto) Lymph # [place] # Eos # Seg Neutrophils % Seg Neuts % (Manual) Lymphocytes % (Manual) Eosinophils % (Manual) Seg Neutrophils # Lymphocytes # (Manual) Eosinophils # (Manual) PT INR D-Dimer POC ABG pH POC ABG pCO2 POC ABG pO2 ABG pO2 ABG HCO3 ABG Base Excess ABG Hemoglobin Oxyhemoglobin Sodium Potassium Chloride Carbon Dioxide BUN Creatinine Glucose POC Glucose 151 H 110 H 163 H Calcium Phosphorus Magnesium ALT Alkaline Phosphatase Total Creatine Kinase CK-MB (CK-2) Rel Index Troponin T Albumin LDL Cholesterol Direct PTH Intact Salicylates Acetaminophen Crossmatch 03/16/19 03/16/19 03/16/19 11:55 17:04 23:58 WBC RBC Hgb Hct MCH MCHC RDW Lymph % (Auto) [place] % (Auto) Eos % (Auto) Lymph # [place] # Eos # Seg Neutrophils % Seg Neuts % (Manual) Lymphocytes % (Manual) Eosinophils % (Manual) Seg Neutrophils # Lymphocytes # (Manual) Eosinophils # (Manual) PT INR D-Dimer POC ABG pH POC ABG pCO2 POC ABG pO2 ABG pO2 ABG HCO3 ABG Base Excess ABG Hemoglobin Oxyhemoglobin Sodium Potassium Chloride Carbon Dioxide BUN Creatinine Glucose POC Glucose 114 H 147 H 192 H Calcium Phosphorus Magnesium ALT Alkaline Phosphatase Total Creatine Kinase CK-MB (CK-2) Rel Index Troponin T Albumin LDL Cholesterol Direct PTH Intact Salicylates Acetaminophen Crossmatch 03/17/19 03/17/19 03/17/19 05:53 11:17 17:01 WBC RBC Hgb Hct MCH MCHC RDW Lymph % (Auto) [place] % (Auto) Eos % (Auto) Lymph # [place] # Eos # Seg Neutrophils % Seg Neuts % (Manual) Lymphocytes % (Manual) Eosinophils % (Manual) Seg Neutrophils # Lymphocytes # (Manual) Eosinophils # (Manual) PT INR D-Dimer POC ABG pH POC ABG pCO2 POC ABG pO2 ABG pO2 ABG HCO3 ABG Base Excess ABG Hemoglobin Oxyhemoglobin Sodium Potassium Chloride Carbon Dioxide BUN Creatinine Glucose POC Glucose 151 H 161 H 152 H Calcium Phosphorus Magnesium ALT Alkaline Phosphatase Total Creatine Kinase CK-MB (CK-2) Rel Index Troponin T Albumin LDL Cholesterol Direct PTH Intact Salicylates Acetaminophen Crossmatch 03/17/19 03/18/19 03/18/19 21:47 04:15 04:44 WBC RBC Hgb Hct MCH MCHC RDW Lymph % (Auto) [place] % (Auto) Eos % (Auto) Lymph # [place] # Eos # Seg Neutrophils % Seg Neuts % (Manual) Lymphocytes % (Manual) Eosinophils % (Manual) Seg Neutrophils # Lymphocytes # (Manual) Eosinophils # (Manual) PT INR D-Dimer POC ABG pH POC ABG pCO2 POC ABG pO2 ABG pO2 102.8 H ABG HCO3 28.3 H ABG Base Excess ABG Hemoglobin 10.4 L Oxyhemoglobin 94.5 L Sodium Potassium Chloride Carbon Dioxide BUN Creatinine Glucose POC Glucose 170 H 150 H Calcium Phosphorus Magnesium ALT Alkaline Phosphatase Total Creatine Kinase CK-MB (CK-2) Rel Index Troponin T Albumin LDL Cholesterol Direct PTH Intact Salicylates Acetaminophen Crossmatch 03/18/19 03/18/19 03/18/19 06:38 12:12 17:47 WBC RBC Hgb Hct MCH MCHC RDW Lymph % (Auto) [place] % (Auto) Eos % (Auto) Lymph # [place] # Eos # Seg Neutrophils % Seg Neuts % (Manual) Lymphocytes % (Manual) Eosinophils % (Manual) Seg Neutrophils # Lymphocytes # (Manual) Eosinophils # (Manual) PT INR D-Dimer POC ABG pH 7.510 H POC ABG pCO2 POC ABG pO2 164 H ABG pO2 ABG HCO3 ABG Base Excess ABG Hemoglobin Oxyhemoglobin Sodium Potassium Chloride Carbon Dioxide BUN Creatinine Glucose POC Glucose 145 H 149 H Calcium Phosphorus Magnesium ALT Alkaline Phosphatase Total Creatine Kinase CK-MB (CK-2) Rel Index Troponin T Albumin LDL Cholesterol Direct PTH Intact Salicylates Acetaminophen Crossmatch 03/18/19 03/19/19 03/19/19 23:25 01:11 04:23 WBC 15.6 H RBC 2.51 L Hgb 6.5 L Hct 21.6 L MCH 26 L MCHC 30 L RDW 19.8 H Lymph % (Auto) 6.0 L [place] % (Auto) Eos % (Auto) Lymph # 0.9 L [place] # 1.0 H Eos # Seg Neutrophils % 85.5 H Seg Neuts % (Manual) Lymphocytes % (Manual) Eosinophils % (Manual) Seg Neutrophils # 13.4 H Lymphocytes # (Manual) Eosinophils # (Manual) PT INR D-Dimer POC ABG pH POC ABG pCO2 POC ABG pO2 ABG pO2 78.3 L ABG HCO3 30.7 H ABG Base Excess 5.8 H ABG Hemoglobin 5.8 L Oxyhemoglobin 94.6 L Sodium Potassium Chloride Carbon Dioxide BUN Creatinine Glucose POC Glucose 190 H Calcium Phosphorus Magnesium ALT Alkaline Phosphatase Total Creatine Kinase CK-MB (CK-2) Rel Index Troponin T Albumin LDL Cholesterol Direct PTH Intact Salicylates Acetaminophen Crossmatch 03/19/19 03/19/19 03/19/19 05:22 05:35 08:54 WBC RBC Hgb Hct MCH MCHC RDW Lymph % (Auto) [place] % (Auto) Eos % (Auto) Lymph # [place] # Eos # Seg Neutrophils % Seg Neuts % (Manual) Lymphocytes % (Manual) Eosinophils % (Manual) Seg Neutrophils # Lymphocytes # (Manual) Eosinophils # (Manual) PT INR D-Dimer POC ABG pH POC ABG pCO2 POC ABG pO2 ABG pO2 ABG HCO3 ABG Base Excess ABG Hemoglobin Oxyhemoglobin Sodium Potassium Chloride Carbon Dioxide BUN Creatinine Glucose POC Glucose 167 H Calcium Phosphorus Magnesium ALT Alkaline Phosphatase Total Creatine Kinase CK-MB (CK-2) Rel Index Troponin T Albumin LDL Cholesterol Direct PTH Intact Salicylates Acetaminophen Crossmatch See Detail See Detail 03/19/19 03/19/19 03/19/19 12:36 17:02 23:25 WBC RBC Hgb Hct MCH MCHC RDW Lymph % (Auto) [place] % (Auto) Eos % (Auto) Lymph # [place] # Eos # Seg Neutrophils % Seg Neuts % (Manual) Lymphocytes % (Manual) Eosinophils % (Manual) Seg Neutrophils # Lymphocytes # (Manual) Eosinophils # (Manual) PT INR D-Dimer POC ABG pH POC ABG pCO2 POC ABG pO2 ABG pO2 ABG HCO3 ABG Base Excess ABG Hemoglobin Oxyhemoglobin Sodium Potassium Chloride Carbon Dioxide BUN Creatinine Glucose POC Glucose 167 H 135 H 136 H Calcium Phosphorus Magnesium ALT Alkaline Phosphatase Total Creatine Kinase CK-MB (CK-2) Rel Index Troponin T Albumin LDL Cholesterol Direct PTH Intact Salicylates Acetaminophen Crossmatch 03/20/19 03/20/19 03/20/19 05:38 08:40 08:40 WBC RBC 2.61 L Hgb 7.1 L Hct 22.0 L MCH 27 L MCHC RDW 19.6 H Lymph % (Auto) 8.2 L [place] % (Auto) 8.3 H Eos % (Auto) 5.7 H Lymph # 0.8 L [place] # Eos # 0.5 H Seg Neutrophils % 77.3 H Seg Neuts % (Manual) Lymphocytes % (Manual) Eosinophils % (Manual) Seg Neutrophils # Lymphocytes # (Manual) Eosinophils # (Manual) PT INR D-Dimer POC ABG pH POC ABG pCO2 POC ABG pO2 ABG pO2 ABG HCO3 ABG Base Excess ABG Hemoglobin Oxyhemoglobin Sodium Potassium Chloride 95.9 L Carbon Dioxide BUN 69 H Creatinine 2.8 H Glucose 115 H POC Glucose 134 H Calcium 10.5 H Phosphorus Magnesium ALT Alkaline Phosphatase Total Creatine Kinase CK-MB (CK-2) Rel Index Troponin T Albumin LDL Cholesterol Direct PTH Intact Salicylates Acetaminophen Crossmatch 03/20/19 03/20/19 03/20/19 12:13 18:04 23:49 WBC RBC Hgb Hct MCH MCHC RDW Lymph % (Auto) [place] % (Auto) Eos % (Auto) Lymph # [place] # Eos # Seg Neutrophils % Seg Neuts % (Manual) Lymphocytes % (Manual) Eosinophils % (Manual) Seg Neutrophils # Lymphocytes # (Manual) Eosinophils # (Manual) PT INR D-Dimer POC ABG pH POC ABG pCO2 POC ABG pO2 ABG pO2 ABG HCO3 ABG Base Excess ABG Hemoglobin Oxyhemoglobin Sodium Potassium Chloride Carbon Dioxide BUN Creatinine Glucose POC Glucose 144 H 165 H 172 H Calcium Phosphorus Magnesium ALT Alkaline Phosphatase Total Creatine Kinase CK-MB (CK-2) Rel Index Troponin T Albumin LDL Cholesterol Direct PTH Intact Salicylates Acetaminophen Crossmatch 03/21/19 03/21/19 03/21/19 05:00 06:29 06:30 WBC RBC 2.72 L Hgb 7.4 L Hct 22.9 L MCH 27 L MCHC RDW 19.4 H Lymph % (Auto) [place] % (Auto) Eos % (Auto) Lymph # [place] # Eos # Seg Neutrophils % Seg Neuts % (Manual) 81.0 H Lymphocytes % (Manual) 8.0 L Eosinophils % (Manual) 8.0 H Seg Neutrophils # Lymphocytes # (Manual) 0.7 L Eosinophils # (Manual) 0.7 H PT INR D-Dimer POC ABG pH POC ABG pCO2 POC ABG pO2 ABG pO2 ABG HCO3 ABG Base Excess ABG Hemoglobin Oxyhemoglobin Sodium Potassium Chloride Carbon Dioxide 33 H BUN 43 H Creatinine 1.7 H Glucose 145 H POC Glucose 156 H Calcium Phosphorus Magnesium ALT Alkaline Phosphatase 212 H Total Creatine Kinase CK-MB (CK-2) Rel Index Troponin T Albumin 2.2 L LDL Cholesterol Direct PTH Intact Salicylates Acetaminophen Crossmatch 03/21/19 03/21/19 03/22/19 12:02 18:07 00:21 WBC RBC Hgb Hct MCH MCHC RDW Lymph % (Auto) [place] % (Auto) Eos % (Auto) Lymph # [place] # Eos # Seg Neutrophils % Seg Neuts % (Manual) Lymphocytes % (Manual) Eosinophils % (Manual) Seg Neutrophils # Lymphocytes # (Manual) Eosinophils # (Manual) PT INR D-Dimer POC ABG pH POC ABG pCO2 POC ABG pO2 ABG pO2 ABG HCO3 ABG Base Excess ABG Hemoglobin Oxyhemoglobin Sodium Potassium Chloride Carbon Dioxide BUN Creatinine Glucose POC Glucose 163 H 144 H 153 H Calcium Phosphorus Magnesium ALT Alkaline Phosphatase Total Creatine Kinase CK-MB (CK-2) Rel Index Troponin T Albumin LDL Cholesterol Direct PTH Intact Salicylates Acetaminophen Crossmatch 03/22/19 03/22/19 03/22/19 05:23 05:23 05:31 WBC RBC 2.58 L Hgb 7.1 L Hct 21.8 L MCH 27 L MCHC RDW 19.2 H Lymph % (Auto) [place] % (Auto) Eos % (Auto) Lymph # [place] # Eos # Seg Neutrophils % Seg Neuts % (Manual) Lymphocytes % (Manual) Eosinophils % (Manual) Seg Neutrophils # Lymphocytes # (Manual) Eosinophils # (Manual) PT INR D-Dimer POC ABG pH POC ABG pCO2 POC ABG pO2 ABG pO2 ABG HCO3 ABG Base Excess ABG Hemoglobin Oxyhemoglobin Sodium 147 H Potassium Chloride Carbon Dioxide BUN 68 H Creatinine 2.5 H Glucose POC Glucose 116 H Calcium 10.3 H Phosphorus Magnesium ALT Alkaline Phosphatase Total Creatine Kinase CK-MB (CK-2) Rel Index Troponin T Albumin LDL Cholesterol Direct PTH Intact Salicylates Acetaminophen Crossmatch 03/22/19 03/22/19 03/22/19 08:48 12:37 17:35 WBC RBC Hgb Hct MCH MCHC RDW Lymph % (Auto) [place] % (Auto) Eos % (Auto) Lymph # [place] # Eos # Seg Neutrophils % Seg Neuts % (Manual) Lymphocytes % (Manual) Eosinophils % (Manual) Seg Neutrophils # Lymphocytes # (Manual) Eosinophils # (Manual) PT INR D-Dimer POC ABG pH POC ABG pCO2 POC ABG pO2 ABG pO2 ABG HCO3 ABG Base Excess ABG Hemoglobin Oxyhemoglobin Sodium Potassium Chloride Carbon Dioxide BUN Creatinine Glucose POC Glucose 143 H 155 H Calcium Phosphorus Magnesium ALT Alkaline Phosphatase Total Creatine Kinase CK-MB (CK-2) Rel Index Troponin T Albumin LDL Cholesterol Direct PTH Intact Salicylates Acetaminophen Crossmatch See Detail 03/23/19 03/23/19 03/23/19 00:07 04:00 04:00 WBC 11.2 H RBC 2.32 L Hgb 6.4 L Hct 19.7 L* MCH MCHC RDW 19.4 H Lymph % (Auto) [place] % (Auto) Eos % (Auto) Lymph # [place] # Eos # Seg Neutrophils % Seg Neuts % (Manual) Lymphocytes % (Manual) Eosinophils % (Manual) Seg Neutrophils # Lymphocytes # (Manual) Eosinophils # (Manual) PT INR D-Dimer POC ABG pH POC ABG pCO2 POC ABG pO2 ABG pO2 ABG HCO3 ABG Base Excess ABG Hemoglobin Oxyhemoglobin Sodium 147 H Potassium 5.2 H Chloride Carbon Dioxide BUN 86 H Creatinine 3.2 H Glucose 128 H POC Glucose 135 H Calcium 10.3 H Phosphorus Magnesium ALT Alkaline Phosphatase Total Creatine Kinase CK-MB (CK-2) Rel Index Troponin T Albumin LDL Cholesterol Direct PTH Intact Salicylates Acetaminophen Crossmatch 03/23/19 03/23/19 03/23/19 05:21 11:36 11:36 WBC RBC Hgb 7.9 L Hct 25.0 L MCH MCHC RDW Lymph % (Auto) [place] % (Auto) Eos % (Auto) Lymph # [place] # Eos # Seg Neutrophils % Seg Neuts % (Manual) Lymphocytes % (Manual) Eosinophils % (Manual) Seg Neutrophils # Lymphocytes # (Manual) Eosinophils # (Manual) PT INR D-Dimer POC ABG pH POC ABG pCO2 POC ABG pO2 ABG pO2 ABG HCO3 ABG Base Excess ABG Hemoglobin Oxyhemoglobin Sodium Potassium Chloride Carbon Dioxide BUN Creatinine Glucose POC Glucose 132 H 147 H Calcium Phosphorus Magnesium ALT Alkaline Phosphatase Total Creatine Kinase CK-MB (CK-2) Rel Index Troponin T Albumin LDL Cholesterol Direct PTH Intact Salicylates Acetaminophen Crossmatch 03/23/19 03/24/19 03/24/19 17:31 01:22 04:20 WBC 12.2 H RBC 3.05 L Hgb 8.3 L Hct 25.9 L MCH 27 L MCHC RDW 18.7 H Lymph % (Auto) [place] % (Auto) Eos % (Auto) Lymph # [place] # Eos # Seg Neutrophils % Seg Neuts % (Manual) Lymphocytes % (Manual) Eosinophils % (Manual) Seg Neutrophils # Lymphocytes # (Manual) Eosinophils # (Manual) PT INR D-Dimer POC ABG pH POC ABG pCO2 POC ABG pO2 ABG pO2 ABG HCO3 ABG Base Excess ABG Hemoglobin Oxyhemoglobin Sodium Potassium Chloride Carbon Dioxide BUN Creatinine Glucose POC Glucose 182 H 113 H Calcium Phosphorus Magnesium ALT Alkaline Phosphatase Total Creatine Kinase CK-MB (CK-2) Rel Index Troponin T Albumin LDL Cholesterol Direct PTH Intact Salicylates Acetaminophen Crossmatch 03/24/19 03/24/19 03/24/19 04:20 11:59 18:14 WBC RBC Hgb Hct MCH MCHC RDW Lymph % (Auto) [place] % (Auto) Eos % (Auto) Lymph # [place] # Eos # Seg Neutrophils % Seg Neuts % (Manual) Lymphocytes % (Manual) Eosinophils % (Manual) Seg Neutrophils # Lymphocytes # (Manual) Eosinophils # (Manual) PT INR D-Dimer POC ABG pH POC ABG pCO2 POC ABG pO2 ABG pO2 ABG HCO3 ABG Base Excess ABG Hemoglobin Oxyhemoglobin Sodium Potassium Chloride 94.8 L Carbon Dioxide 32 H BUN 53 H Creatinine 2.3 H Glucose POC Glucose 163 H 134 H Calcium Phosphorus Magnesium ALT Alkaline Phosphatase Total Creatine Kinase CK-MB (CK-2) Rel Index Troponin T Albumin LDL Cholesterol Direct PTH Intact Salicylates Acetaminophen Crossmatch 03/24/19 03/25/19 03/25/19 23:15 05:52 12:02 WBC RBC Hgb Hct MCH MCHC RDW Lymph % (Auto) [place] % (Auto) Eos % (Auto) Lymph # [place] # Eos # Seg Neutrophils % Seg Neuts % (Manual) Lymphocytes % (Manual) Eosinophils % (Manual) Seg Neutrophils # Lymphocytes # (Manual) Eosinophils # (Manual) PT INR D-Dimer POC ABG pH POC ABG pCO2 POC ABG pO2 ABG pO2 ABG HCO3 ABG Base Excess ABG Hemoglobin Oxyhemoglobin Sodium Potassium Chloride Carbon Dioxide BUN Creatinine Glucose POC Glucose 129 H 123 H 125 H Calcium Phosphorus Magnesium ALT Alkaline Phosphatase Total Creatine Kinase CK-MB (CK-2) Rel Index Troponin T Albumin LDL Cholesterol Direct PTH Intact Salicylates Acetaminophen Crossmatch 03/25/19 03/26/19 03/26/19 17:27 00:30 05:35 WBC RBC 3.01 L Hgb 8.1 L Hct 25.7 L MCH 27 L MCHC RDW 19.2 H Lymph % (Auto) 11.4 L [place] % (Auto) Eos % (Auto) 8.0 H Lymph # 1.0 L [place] # Eos # 0.7 H Seg Neutrophils % 73.9 H Seg Neuts % (Manual) Lymphocytes % (Manual) Eosinophils % (Manual) Seg Neutrophils # Lymphocytes # (Manual) Eosinophils # (Manual) PT INR D-Dimer POC ABG pH POC ABG pCO2 POC ABG pO2 ABG pO2 ABG HCO3 ABG Base Excess ABG Hemoglobin Oxyhemoglobin Sodium Potassium Chloride Carbon Dioxide BUN Creatinine Glucose POC Glucose 130 H 129 H Calcium Phosphorus Magnesium ALT Alkaline Phosphatase Total Creatine Kinase CK-MB (CK-2) Rel Index Troponin T Albumin LDL Cholesterol Direct PTH Intact Salicylates Acetaminophen Crossmatch 03/26/19 03/26/19 03/26/19 05:35 05:45 12:16 WBC RBC Hgb Hct MCH MCHC RDW Lymph % (Auto) [place] % (Auto) Eos % (Auto) Lymph # [place] # Eos # Seg Neutrophils % Seg Neuts % (Manual) Lymphocytes % (Manual) Eosinophils % (Manual) Seg Neutrophils # Lymphocytes # (Manual) Eosinophils # (Manual) PT INR D-Dimer POC ABG pH POC ABG pCO2 POC ABG pO2 ABG pO2 ABG HCO3 ABG Base Excess ABG Hemoglobin Oxyhemoglobin Sodium Potassium Chloride 94.9 L Carbon Dioxide 31 H BUN 44 H Creatinine 2.0 H Glucose POC Glucose 118 H 107 H Calcium Phosphorus Magnesium ALT Alkaline Phosphatase Total Creatine Kinase CK-MB (CK-2) Rel Index Troponin T Albumin LDL Cholesterol Direct PTH Intact Salicylates Acetaminophen Crossmatch 03/26/19 03/27/19 03/27/19 17:56 00:36 05:37 WBC RBC Hgb Hct MCH MCHC RDW Lymph % (Auto) [place] % (Auto) Eos % (Auto) Lymph # [place] # Eos # Seg Neutrophils % Seg Neuts % (Manual) Lymphocytes % (Manual) Eosinophils % (Manual) Seg Neutrophils # Lymphocytes # (Manual) Eosinophils # (Manual) PT INR D-Dimer POC ABG pH POC ABG pCO2 POC ABG pO2 ABG pO2 ABG HCO3 ABG Base Excess ABG Hemoglobin Oxyhemoglobin Sodium Potassium Chloride Carbon Dioxide BUN Creatinine Glucose POC Glucose 107 H 110 H 122 H Calcium Phosphorus Magnesium ALT Alkaline Phosphatase Total Creatine Kinase CK-MB (CK-2) Rel Index Troponin T Albumin LDL Cholesterol Direct PTH Intact Salicylates Acetaminophen Crossmatch 03/27/19 03/27/19 03/28/19 11:22 18:00 05:17 WBC RBC Hgb Hct MCH MCHC RDW Lymph % (Auto) [place] % (Auto) Eos % (Auto) Lymph # [place] # Eos # Seg Neutrophils % Seg Neuts % (Manual) Lymphocytes % (Manual) Eosinophils % (Manual) Seg Neutrophils # Lymphocytes # (Manual) Eosinophils # (Manual) PT INR D-Dimer POC ABG pH POC ABG pCO2 POC ABG pO2 ABG pO2 ABG HCO3 ABG Base Excess ABG Hemoglobin Oxyhemoglobin Sodium Potassium Chloride Carbon Dioxide BUN Creatinine Glucose POC Glucose 120 H 111 H 107 H Calcium Phosphorus Magnesium ALT Alkaline Phosphatase Total Creatine Kinase CK-MB (CK-2) Rel Index Troponin T Albumin LDL Cholesterol Direct PTH Intact Salicylates Acetaminophen Crossmatch 03/28/19 03/28/19 03/29/19 12:27 18:08 05:47 WBC RBC Hgb Hct MCH MCHC RDW Lymph % (Auto) [place] % (Auto) Eos % (Auto) Lymph # [place] # Eos # Seg Neutrophils % Seg Neuts % (Manual) Lymphocytes % (Manual) Eosinophils % (Manual) Seg Neutrophils # Lymphocytes # (Manual) Eosinophils # (Manual) PT INR D-Dimer POC ABG pH POC ABG pCO2 POC ABG pO2 ABG pO2 ABG HCO3 ABG Base Excess ABG Hemoglobin Oxyhemoglobin Sodium Potassium Chloride Carbon Dioxide BUN Creatinine Glucose POC Glucose 114 H 121 H 112 H Calcium Phosphorus Magnesium ALT Alkaline Phosphatase Total Creatine Kinase CK-MB (CK-2) Rel Index Troponin T Albumin LDL Cholesterol Direct PTH Intact Salicylates Acetaminophen Crossmatch 03/29/19 03/29/19 03/30/19 12:14 18:08 00:31 WBC RBC Hgb Hct MCH MCHC RDW Lymph % (Auto) [place] % (Auto) Eos % (Auto) Lymph # [place] # Eos # Seg Neutrophils % Seg Neuts % (Manual) Lymphocytes % (Manual) Eosinophils % (Manual) Seg Neutrophils # Lymphocytes # (Manual) Eosinophils # (Manual) PT INR D-Dimer POC ABG pH POC ABG pCO2 POC ABG pO2 ABG pO2 ABG HCO3 ABG Base Excess ABG Hemoglobin Oxyhemoglobin Sodium Potassium Chloride Carbon Dioxide BUN Creatinine Glucose POC Glucose 117 H 140 H 114 H Calcium Phosphorus Magnesium ALT Alkaline Phosphatase Total Creatine Kinase CK-MB (CK-2) Rel Index Troponin T Albumin LDL Cholesterol Direct PTH Intact Salicylates Acetaminophen Crossmatch 03/30/19 03/30/19 03/30/19 10:13 10:13 23:53 WBC RBC 2.81 L Hgb 7.7 L Hct 24.3 L MCH 27 L MCHC RDW 19.0 H Lymph % (Auto) 12.2 L [place] % (Auto) Eos % (Auto) 7.9 H Lymph # 1.0 L [place] # Eos # 0.6 H Seg Neutrophils % 72.3 H Seg Neuts % (Manual) Lymphocytes % (Manual) Eosinophils % (Manual) Seg Neutrophils # Lymphocytes # (Manual) Eosinophils # (Manual) PT INR D-Dimer POC ABG pH POC ABG pCO2 POC ABG pO2 ABG pO2 ABG HCO3 ABG Base Excess ABG Hemoglobin Oxyhemoglobin Sodium Potassium 5.1 H Chloride 96.5 L Carbon Dioxide BUN 73 H Creatinine 3.9 H D Glucose POC Glucose 114 H Calcium 10.3 H Phosphorus 6.30 H Magnesium 2.70 H ALT Alkaline Phosphatase 185 H Total Creatine Kinase CK-MB (CK-2) Rel Index Troponin T Albumin 2.6 L LDL Cholesterol Direct PTH Intact Salicylates Acetaminophen Crossmatch 03/31/19 03/31/19 03/31/19 05:45 10:26 10:26 WBC RBC 3.01 L Hgb 8.2 L Hct 26.4 L MCH 27 L MCHC 31 L RDW 20.3 H Lymph % (Auto) 13.3 L [place] % (Auto) Eos % (Auto) 7.2 H Lymph # 1.1 L [place] # Eos # 0.6 H Seg Neutrophils % 72.1 H Seg Neuts % (Manual) Lymphocytes % (Manual) Eosinophils % (Manual) Seg Neutrophils # Lymphocytes # (Manual) Eosinophils # (Manual) PT INR D-Dimer POC ABG pH POC ABG pCO2 POC ABG pO2 ABG pO2 ABG HCO3 ABG Base Excess ABG Hemoglobin Oxyhemoglobin Sodium Potassium Chloride 96.9 L Carbon Dioxide 33 H BUN 37 H Creatinine 2.4 H Glucose POC Glucose 108 H Calcium 10.3 H Phosphorus Magnesium ALT Alkaline Phosphatase Total Creatine Kinase CK-MB (CK-2) Rel Index Troponin T Albumin LDL Cholesterol Direct PTH Intact Salicylates Acetaminophen Crossmatch 03/31/19 04/01/19 04/01/19 12:38 05:48 12:06 WBC RBC Hgb Hct MCH MCHC RDW Lymph % (Auto) [place] % (Auto) Eos % (Auto) Lymph # [place] # Eos # Seg Neutrophils % Seg Neuts % (Manual) Lymphocytes % (Manual) Eosinophils % (Manual) Seg Neutrophils # Lymphocytes # (Manual) Eosinophils # (Manual) PT INR D-Dimer POC ABG pH POC ABG pCO2 POC ABG pO2 ABG pO2 ABG HCO3 ABG Base Excess ABG Hemoglobin Oxyhemoglobin Sodium Potassium Chloride Carbon Dioxide BUN Creatinine Glucose POC Glucose 108 H 114 H 111 H Calcium Phosphorus Magnesium ALT Alkaline Phosphatase Total Creatine Kinase CK-MB (CK-2) Rel Index Troponin T Albumin LDL Cholesterol Direct PTH Intact Salicylates Acetaminophen Crossmatch 04/01/19 04/02/19 18:24 00:36 WBC RBC Hgb Hct MCH MCHC RDW Lymph % (Auto) [place] % (Auto) Eos % (Auto) Lymph # [place] # Eos # Seg Neutrophils % Seg Neuts % (Manual) Lymphocytes % (Manual) Eosinophils % (Manual) Seg Neutrophils # Lymphocytes # (Manual) Eosinophils # (Manual) PT INR D-Dimer POC ABG pH POC ABG pCO2 POC ABG pO2 ABG pO2 ABG HCO3 ABG Base Excess ABG Hemoglobin Oxyhemoglobin Sodium Potassium Chloride Carbon Dioxide BUN Creatinine Glucose POC Glucose 113 H 117 H Calcium Phosphorus Magnesium ALT Alkaline Phosphatase Total Creatine Kinase CK-MB (CK-2) Rel Index Troponin T Albumin LDL Cholesterol Direct PTH Intact Salicylates Acetaminophen Crossmatch Chest x-ray: report reviewed, image reviewed
[2019-04-03] MEDS: IPRATROPIUM/ALBUTEROL SULFATE 3 ML AMPUL.NEB IH SCH ×3 (13:25→21:46)
--- NOTE | 2019-04-03 15:20 | Progress Note ---
Assessment and Plan Assessment and plan: Patient is 63-year-old -Arm[place]ian male patient [facility] with multiple co-morbidities including blindness, CVA, CHF, PPM/ICD, loop recorder since 2012 that is MRI compatible, IDDM type 2, sepsis left foot ulcer, afib, ESRD with complications on HD TTS, hypertension, AOCD and GERD who presented to the ED with hypotensive after intubation in the emergency room. diagnosed with fluid overload, pleural effusion. Patient has had recurrent admission in the hospital for similar reason and was recently discharged from the hospital following treatment of Severe Sepsis due to Necrotizing Unstagable sacral decubitus ulcer with ostemomylitis, has received multiple courses of broad spectrum abx. Acute hypoxic respiratory failure, status post intubation and ventilatory support, now off vent, on T-piece Acute respiratory failure on mechanical ventilator >96 hrs Extubated ; history of tracheostomy on T piece Current management , nebulizers, Currently on trach/peg placed on 03/03. Now off vent, cont oxygen supplement, improving, on t piece, nebulizers, pulmonary critical following acute on chronic systolic CHF/ Acute pulmonary edema, HD per schedule Dilated CMP, EF 35-40% Continue diuresis, supportive care Acute metabolic encephalopathy, resolved, has baseline Dementia. --ESRD on hemodialysis per schedule nephrology following --Bilateral pleural effusions improved with HD --Permanent atrial fibrillation and flutter and hypercoaguable state Not on anticoagulation because of anemia thrombocytopenia rate control meds optimized --Diabetes mellitus type 2 Accu-Chek sliding scale coverage Insulin as needed --NSTEMI type 2 , Cardiology following --Schizophrenia:stable --Legally blind, supportive care --hypertension, Monitor BP,'s adjust medications as needed --Hypokalemia; corrected --Pulmonary hypertension; continue current management --Dysphagia s/p PEG tube; PEG tubes per protocol --Sacral decub ulcer; Wound care --Severe malnutrition /hypoalbuminemia with FTT: 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, 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 inpatient hospice was recommended, but family is not agreeable at this time. family meeting and ethic consult as needed History Interval history: Patient was seen and evaluated this morning, Patient is on PEG and trach. Hospitalist Physical - Physical exam Narrative exam: Patient is on trach and PEG The patient appeared well nourished and normally developed. Vital signs as documented. Head exam is unremarkable. No scleral icterus . Neck is without jugular venous distension, thyromegaly, or carotid bruits. Lungs are clear to auscultation. Cardiac exam reveals regular rate and Rhythm. First and second heart sounds normal. No murmurs, rubs or gallops. Abdominal exam reveals PEG tube in place, colostomy bag in place. Extremities are nonedematous and both femoral and pedal pulses are normal. 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 - Constitutional Vitals: Temp Pulse Resp BP Pulse Ox 98.0 F 86 20 130/66 96 04/03/19 04:07 04/03/19 08:00 04/03/19 08:00 04/03/19 04:07 04/03/19 10:00 General appearance: Present: no acute distress, well-nourished, other (trac heostomy on T piece) Results - Labs CBC & Chem 7: 03/31/19 10:26 03/31/19 10:26 Labs: Laboratory Last Values WBC 8.3 K/mm3 (4.5-11.0) 03/31/19 10:26 RBC 3.01 M/mm3 (3.65-5.03) L 03/31/19 10:26 Hgb 8.2 gm/dl (11.8-15.2) L 03/31/19 10:26 Hct 26.4 % (35.5-45.6) L 03/31/19 10:26 MCV 88 fl (84-94) 03/31/19 10: MCH 27 pg (28-32) L 03/31/19 10: MCHC 31 % (32-34) L 03/31/19 10:26 RDW 20.3 % (13.2-15.2) H 03/31/19 10:26 Plt Count 361 K/mm3 (140-440) 03/31/19 10: Lymph % (Auto) 13.3 % (13.4-35.0) L 03/31/19 10: [place] % (Auto) 6.5 % (0.0-7.3) 03/31/19 10: Eos % (Auto) 7.2 % (0.0-4.3) H 03/31/19 10: Baso % (Auto) 0.9 % (0.0-1.8) 03/31/19 10: Lymph # 1.1 K/mm3 (1.2-5.4) L 03/31/19 10: [place] # 0.5 K/mm3 (0.0-0.8) 03/31/19 10: Eos # 0.6 K/mm3 (0.0-0.4) H 03/31/19 10: Baso # 0.1 K/mm3 (0.0-0.1) 03/31/19 10: Add Manual Diff Complete 03/21/19 06:30 Total Counted 100 03/21/19 06:30 Seg Neutrophils % 72.1 % (40.0-70.0) H 03/31/19 10: Seg Neuts % (Manual) 81.0 % (40.0-70.0) H 03/21/19 06:30 0 % 03/21/19 06:30 8.0 % (13.4-35.0) L 03/21/19 06:30 Reactive Lymphs % (Man) 0 % 03/21/19 06:30 1.0 % (0.0-7.3) 03/21/19 06:30 8.0 % (0.0-4.3) H 03/21/19 06:30 1.0 % (0.0-1.8) 03/21/19 06:30 1.0 % 03/21/19 06:30 0 % 03/21/19 06:30 0 % 03/21/19 06:30 0 % 03/21/19 06:30 Nucleated RBC % Not Reportable 03/21/19 06:30 Seg Neutrophils # 6.0 K/mm3 (1.8-7.7) 03/31/19 10:26 Seg Neutrophils # Man 6.7 K/mm3 (1.8-7.7) 03/21/19 06:30 Band Neutrophils # 0.0 K/mm3 03/21/19 06:30 0.7 K/mm3 (1.2-5.4) L 03/21/19 06:30 Abs React Lymphs (Man) 0.0 K/mm3 03/21/19 06:30 0.1 K/mm3 (0.0-0.8) 03/21/19 06:30 0.7 K/mm3 (0.0-0.4) H 03/21/19 06:30 0.1 K/mm3 (0.0-0.1) 03/21/19 06:30 0.1 K/mm3 03/21/19 06:30 0.0 K/mm3 03/21/19 06:30 0.0 K/mm3 03/21/19 06:30 Blast Cells # 0.0 K/mm3 03/21/19 06:30 WBC Morphology Not Reportable 03/21/19 06:30 Hypersegmented Neuts Not Reportable 03/21/19 06:30 Hyposegmented Neuts Not Reportable 03/21/19 06:30 Hypogranular Neuts Not Reportable 03/21/19 06:30 Not Reportable 03/21/19 06:30 Not Reportable 03/21/19 06:30 Not Reportable 03/21/19 06:30 Not Reportable 03/21/19 06:30 Not Reportable 03/21/19 06:30 Not Reportable 03/21/19 06:30 Consistent w auto 03/21/19 06:30 Not Reportable 03/21/19 06:30 Plt Clumps, EDTA Not Reportable 03/21/19 06:30 Not Reportable 03/21/19 06:30 Not Reportable 03/21/19 06:30 Not Reportable 03/21/19 06:30 Plt Morphology Comment Not Reportable 03/21/19 06:30 RBC Morphology Not Reportable 03/21/19 06:30 Dimorphic RBCs Not Reportable 03/21/19 06:30 Not Reportable 03/21/19 06:30 Few 03/21/19 06:30 Few 03/21/19 06:30 Few 03/21/19 06:30 Not Reportable 03/21/19 06:30 Not Reportable 03/21/19 06:30 Not Reportable 03/21/19 06:30 Not Reportable 03/21/19 06:30 Not Reportable 03/21/19 06:30 1+ 03/21/19 06:30 Not Reportable 03/21/19 06:30 Few 03/21/19 06:30 Not Reportable 03/21/19 06:30 Not Reportable 03/21/19 06:30 Not Reportable 03/21/19 06:30 Not Reportable 03/21/19 06:30 Not Reportable 03/21/19 06:30 Not Reportable 03/21/19 06:30 Not Reportable 03/21/19 06:30 Acanthocytes (Spur) Not Reportable 03/21/19 06:30 Rouleaux Not Reportable 03/21/19 06:30 Not Reportable 03/21/19 06:30 Not Reportable 03/21/19 06:30 Not Reportable 03/21/19 06:30 Not Reportable 03/21/19 06:30 Hem Pathologist Commnt No 03/21/19 06:30 PT 16.3 Sec. (12.2-14.9) H 03/01/19 09:39 INR 1.35 (0.87-1.13) H 03/01/19 09:39 APTT 33.7 Sec. (24.2-36.6) 02/21/19 18:30 2987.82 ng/mlDDU (0-234) H 02/22/19 05:54 POC ABG pH 7.510 (7.35-7.45) H 03/18/19 06:38 ABG pH 7.424 pH Units (7.350-7.450) 03/19/19 04:23 POC ABG pCO2 38.9 (35-45) 03/18/19 06:38 ABG pCO2 48.0 mm Hg 03/19/19 04:23 POC ABG pO2 164 (80-105) H 03/18/19 06:38 ABG pO2 78.3 mm Hg (80.0-90.0) L 03/19/19 04:23 POC ABG HCO3 31.0 (22-26 mml/L) 03/18/19 06:38 ABG HCO3 30.7 mmol/L (20.0-26.0) H 03/19/19 04:23 POC ABG Total CO2 32 (23-27mmol/L) 03/18/19 06:38 POC ABG O2 Sat 100 03/18/19 06:38 ABG O2 Saturation 97.0 % (95.0-99.0) 03/19/19 04:23 ABG O2 Content 7.9 (0.0-44) 03/19/19 04:23 POC ABG Base Excess 8 ((-2) - (+3)mmol/L) 03/18/19 06:38 ABG Base Excess 5.8 mmol/L (-2.0-3.0) H 03/19/19 04:23 ABG Hemoglobin 5.8 gm/dl (14.0-18.0) L 03/19/19 04:23 ABG Carboxyhemoglobin 2.0 % (0.0-5.0) 03/19/19 04:23 ABG Methemoglobin 0.4 % (0.0-1.5) 03/19/19 04:23 94.6 % (95.0-99.0) L 03/19/19 04:23 35 % 03/19/19 04:23 Sodium 143 mmol/L (137-145) 03/31/19 10:26 Potassium 4.1 mmol/L (3.6-5.0) 03/31/19 10:26 Chloride 96.9 mmol/L (98-107) L 03/31/19 10:26 Carbon Dioxide 33 mmol/L (22-30) H 03/31/19 10:26 17 mmol/L 03/31/19 10:26 BUN 37 mg/dL (9-20) H 03/31/19 10:26 2.4 mg/dL (0.8-1.5) H 03/31/19 10:26 Estimated GFR 33 ml/min 03/31/19 10:26 15 % 03/31/19 10:26 Glucose 86 mg/dL (75-100) 03/31/19 10:26 POC Glucose 84 (70-105) 04/03/19 08:26 Lactic Acid 1.00 mmol/L (0.7-2.0) 02/21/19 20:58 Calcium 10.3 mg/dL (8.4-10.2) H 03/31/19 10:26 Phosphorus 4.30 mg/dL (2.5-4.5) D 03/31/19 10:26 Magnesium 2.70 mg/dL (1.7-2.3) H 03/30/19 10:13 0.20 mg/dL (0.1-1.2) 03/30/19 10:13 AST 16 units/L (5-40) 03/30/19 10:13 ALT 11 units/L (7-56) 03/30/19 10:13 185 units/L (35-129) H 03/30/19 10:13 28.0 umol/L (25-60) 02/21/19 20:04 64 units/L (55-170) 02/22/19 03:42 CK-MB (CK-2) 3.7 ng/mL (0.0-4.0) 02/22/19 03:42 CK-MB (CK-2) Rel Index 5.7 (0-4) H 02/22/19 03:42 0.193 ng/mL (0.00-0.029) H* 02/22/19 03:42 6.9 g/dL (6.3-8.2) 03/30/19 10:13 2.6 g/dL (3.9-5) L 03/30/19 10:13 0.6 % 03/30/19 10:13 Triglycerides 51 mg/dL (2-149) 02/21/19 18:30 Cholesterol 82 mg/dL (50-199) 02/21/19 18:30 36 mg/dL (50-130) L 02/21/19 18:30 40 mg/dL (40-59) 02/21/19 18:30 2.05 % 02/21/19 18:30 TSH 2.760 mlU/mL (0.270-4.200) 02/21/19 20:04 PTH Intact 267.6 pg/mL (15-65) H 03/02/19 05:15 Salicylates < 0.3 mg/dL (2.8-20.0) L 02/21/19 20:04 Acetaminophen < 5.0 ug/mL (10.0-30.0) L 02/21/19 20:04 Hepatitis A IgM Ab Non-reactive (NonReactive) 03/31/19 22:56 Hep Bs Antigen Non-reactive (Negative) 03/31/19 22:56 Hep B Core IgM Ab Non-reactive (NonReactive) 03/31/19 22:56 Non-reactive (NonReactive) 03/31/19 22:56 Blood Type O POSITIVE 03/22/19 08:48 Antibody Screen Negative 03/22/19 08:48 Crossmatch See Detail 03/22/19 08:48 Active Medications - Current Medications Current Medications: Generic Name Dose Route Start Last Admin Trade Name Freq PRN Reason Stop Dose Admin Albuterol/Ipratropium 1 ampul 02/24/19 20:00 04/03/19 13:49 Duoneb *Not For Prn Use* IH Not Given TIDRT [facility] Lipase/Protease/Amylase 1 each 03/05/19 14:04 04/02/19 21:34 Pancreaze 10,500 Unit FEEDTUBE 1 each PRN PRN Administration For Clogged Feeding Tube Epoetin Solitario 20,000 unit 03/24/19 11:17 04/01/19 09:51 Procrit IV 20,000 unit UMA PRN Administration hemodialysis Famotidine 20 mg 02/23/19 10:00 04/03/19 11:23 Pepcid PO 20 mg DAILY SANCHEZ Administration Heparin Sodium (Porcine) 5,000 unit 03/04/19 22:00 04/03/19 11:23 Heparin SUB-Q 5,000 unit Q12HR SANCHEZ Administration Hydrophilic Ointment 1 applic 02/21/19 18:24 03/05/19 08:16 Vaseline Lip Therapy TP 1 applic Q2HR PRN Administration Dry Lips Sodium Chloride 100 mls @ 999 mls/hr 02/26/19 09:00 Nacl 0.9% IV UMA PRN Hypotension Insulin Human Regular 0 units 02/26/19 12:00 04/03/19 08:18 Humulin R SUB-Q Not Given Q6HR [facility] Protocol Metoprolol Tartrate 2.5 mg 02/28/19 12:06 03/15/19 05:15 Lopressor IV 2.5 mg Q4HR PRN Administration Tachycardia Multi-Ingred Cream/Lotion/Oil/Oint 1 applic 02/21/19 18:24 03/29/19 21:40 Artificial Tears Ophth Oint OU 1 applic Q4HR PRN Administration Dry Eye(s) Risperidone 1 mg 02/25/19 13:00 04/03/19 11:23 Risperdal PO 1 mg DAILY SANCHEZ Administration Scopolamine 1 each 03/13/19 04:00 04/03/19 04:56 Transderm-Scop TD 1 each Q3D SANCHEZ Administration Sertraline HCl 100 mg 02/25/19 13:00 04/03/19 11:23 Zoloft PO 100 mg DAILY SANCHEZ Administration Simple Syrup 15 ml 03/05/19 14:04 Simple Syrup FEEDTUBE PRN PRN Hypoglycemia Simple Syrup 30 ml 03/05/19 14:04 04/02/19 21:33 Simple Syrup FEEDTUBE 30 ml PRN PRN Administration Hypoglycemia Sodium Bicarbonate 325 mg 03/05/19 14:04 04/02/19 21:34 Sodium Bicarbonate FEEDTUBE 325 mg PRN PRN Administration For Clogged Feeding Tube Sodium Hypochlorite 1 applic 04/01/19 13:00 04/03/19 04:17 Dakin's Half Strength TP 50 applicatio BID SANCHEZ Administration Tramadol HCl 50 mg 03/05/19 10:08 04/02/19 21:34 Ultram PO 50 mg Q6H PRN Administration Pain, Moderate (4-6) Nutrition/Malnutrition Assess - Dietary Evaluation Nutrition/Malnutrition Findings: Nutrition Notes Start: 02/22/19 12:51 Freq: Status: Active Protocol: Document 04/03/19 12:20 RS (Rec: 04/03/19 12:27 RS [id number]) Co-Sign 04/03/19 12:20 LP Nutrition Notes Initial or Follow up Reassessment Current Diagnosis Diabetes,Hypertension Other Pertinent Diagnosis Sacral PU, ESRD on HD (T/Thurs /Sat), Schizophrenia,Blind in L eye,S/P trach Current Diet Nepro with Carbsteady 1.8 at 50 ml/hr Labs/Tests Reviewed Pertinent Medications Reviewed Height 5 ft 10 in Weight 74.7 kg Brady Body Weight (kg) 75.45 BMI 23.6 Subjective/Other Information Nepro running at 50 ml/hr at time of visit. Pt is tolerating TF. Percent of energy/protein needs met: 96%/100% Burn Absent Trauma Absent #2 Nutrition Diagnosis Increased nutrient needs ( specify in comment below) Diagnosis Progress(for reassessment Continues documentation) #1 Nutrition Diagnosis Inadequate oral intake Diagnosis Progress(for reassessment Continues documentation) Is patient on ventilator? No Is Patient Ambulatory and/or Out of Bed No REE-(Corinne-St. Jeor-confined to bed) 1857.144 Kcal/Kg value to use for calculation 30 Approximate Energy Requirements Using 2241 kcal/Kg Calculation Used for Recommendations Kcal/kg Additional Notes Protein Needs: 90-112g (1.2-1. 5g/kg) Fluid Needs: 1-1.5 L/day Nutrition Intervention Change Diet Order: Continue TF Nutrition Support: Nepro with Carbsteady 1.8 at 50 ml/hr Flush 200 ml q4hr Kcal 2,160 Protein (gm) 97 Fluid (mL) 872 Add Supplement/Snack (indicate name/kcal Abhilash BID /protein ) Provides kCal: 190 Provides Protein (gm) 5 Goal #1 TF tolerance Goal #2 Continue to meet at least 80% of calorie and protein needs via TF Anticipated Discharge Needs: TF Follow-Up By: 04/10/19 Additional Comments F/U for new TF rate/tolerance
[2019-04-03] MEDS ORDERED: SODIUM CHLORIDE 0.9% 1000 ML 2,000 ML ONE (19:42)
[2019-04-03] MEDS: EPOETIN ALFA 20,000 UNIT/1 ML INJ IV PRN (21:15)
[2019-04-04] MEDS: INSULIN REGULAR, HUMAN 100 UNITS/1 ML SUB-Q SCH ×3 (00:55→18:00)
[2019-04-04] MEDS: IPRATROPIUM/ALBUTEROL SULFATE 3 ML AMPUL.NEB IH SCH ×3 (08:36→20:35)
[2019-04-04] MEDS: FAMOTIDINE 20 MG TAB PO SCH (10:18)
[2019-04-04] MEDS: risperiDONE 1 MG TAB PO SCH (10:18)
[2019-04-04] MEDS: SERTRALINE 100 MG TAB PO SCH (10:18)
[2019-04-04] MEDS: HEPARIN 5,000 UNIT/1 ML VIAL SUB-Q SCH (10:19)
[2019-04-04] MEDS: SODIUM HYPOCHLORITE, DAKIN'S 1/2 STRENGTH (0.25%) 473 ML TOPICAL SOLN TP SCH ×2 (10:24→23:50)
--- NOTE | 2019-04-04 11:00 | Progress Note ---
Subjective Principal diagnosis: respiratory failure Interval history: Patient was seen today for follow-up of multiple renal related issues On hemodialysis, MWF no acute issues on dialysis no acute distress Events of 24 hours vitals labs intake output medications were reviewed Past medical history: Reviewed Family history: Reviewed Social history: Reviewed Allergies: Reviewed Physical examination: Vitals: Reviewed HEENT:mild pallor or icterus oral mucosa moist Neck: Supple no JVD no thyromegaly Chest: Bilateral clear to auscultation anteriorly Heart: Regular rate and rhythm S1-S2 heard no S3-S4 Abdomen: Soft nontender no voluntary guarding rigidity rebound Extremity: Dry skin less than 1+ peripheral edema AV access: Has good flow, what appears to be somewhat tense and pulsatile Psychiatric: No evidence of agitation and aggression noted Overall patient appears to be ill appearing Labs and x-rays: Reviewed from today Assessment and plan ESRD: Patient will continue with hemodialysis treatment Saturday, Saturday and Saturday, as tolerated fistula and is to be evaluated by vascular surgery Ultrafiltration only as tolerated as of March 31, 2019 hemoglobin 8.2 better platelet count 361,000 stable potassium 4.1 creatinine 2.4 bicarbonate 33 calcium 10.3 Mortality risk, in my opinion both short and long-term both are high Multiple other comorbidities including pneumonia, status post tracheotomy, card iomyopathy ejection fraction 35-40%, history of CVA, atrial fibrillation, decubitus ulceration Continue with supportive care We'll continue to follow and make recommendation for renal standpoint Objective - Vital Signs Vital signs: Vital Signs - 12hr 04/03/19 04/03/19 04/04/19 23:08 23:10 00:00 Temperature Pulse Rate 82 Pulse Rate [ Anterior Bilateral Throughout] Respiratory Rate Respiratory Rate [Anterior Bilateral Throughout] Blood Pressure O2 Sat by Pulse 93 Oximetry O2 Sat by Pulse 100 Oximetry [ Assessment] 04/04/19 04/04/19 04/04/19 01:05 01:06 04:00 Temperature 98.6 F Pulse Rate 79 80 Pulse Rate [ Anterior Bilateral Throughout] Respiratory 20 Rate Respiratory Rate [Anterior Bilateral Throughout] Blood Pressure 118/66 O2 Sat by Pulse 100 Oximetry O2 Sat by Pulse Oximetry [ Assessment] 04/04/19 04/04/19 04/04/19 04:11 04:12 08:15 Temperature 99.6 F 98.6 F Pulse Rate 88 37 L Pulse Rate [ Anterior Bilateral Throughout] Respiratory 20 20 Rate Respiratory Rate [Anterior Bilateral Throughout] Blood Pressure 122/67 140/71 O2 Sat by Pulse 99 86 Oximetry O2 Sat by Pulse Oximetry [ Assessment] 04/04/19 04/04/19 08:36 09:02 Temperature Pulse Rate Pulse Rate [ 80 Anterior Bilateral Throughout] Respiratory Rate Respiratory 16 Rate [Anterior Bilateral Throughout] Blood Pressure O2 Sat by Pulse 97 Oximetry O2 Sat by Pulse Oximetry [ Assessment] - Lab 03/31/19 10:26 03/31/19 10:26 Most recent lab results ABG pH 7.424 pH Units (7.350-7.450) 03/19/19 04:23 ABG pCO2 48.0 mm Hg 03/19/19 04:23 ABG pO2 78.3 mm Hg (80.0-90.0) L 03/19/19 04:23 ABG HCO3 30.7 mmol/L (20.0-26.0) H 03/19/19 04:23 ABG O2 Saturation 97.0 % (95.0-99.0) 03/19/19 04:23 Calcium 10.3 mg/dL (8.4-10.2) H 03/31/19 10:26 Phosphorus 4.30 mg/dL (2.5-4.5) D 03/31/19 10:26 Magnesium 2.70 mg/dL (1.7-2.3) H 03/30/19 10:13 Medications & Allergies - Medications Allergies/Adverse Reactions: Allergies haloperidol [From Haldol] Adverse Reaction (Verified 03/13/18 12:10) Unknown haloperidol lactate [From Haldol] Adverse Reaction (Verified 03/13/18 12:10) Unknown Home Medications: Home Medications Medication Instructions Recorded Confirmed Last Taken Type risperiDONE [RisperDAL] 1 mg PO QAM 03/13/18 02/21/19 Unknown History Sertraline [Zoloft] 100 mg PO QDAY 08/26/18 02/21/19 Unknown History Polyethylene Glycol 3350 [Miralax 17 gm PO QDAY #30 packet 11/05/18 02/21/19 Unknown Rx 3350] Aspirin EC [Halfprin EC] 81 mg PO DAILY #30 11/19/18 02/21/19 Unknown Rx Docusate Sodium [Colace CAP] 100 mg PO BID #60 11/19/18 02/21/19 Unknown Rx Folic Acid [Folvite] 1 mg PO DAILY #30 tab 11/19/18 02/21/19 Unknown Rx Famotidine [Pepcid] 20 mg PO DAILY tablet 12/08/18 02/21/19 Unknown Rx Gabapentin [Neurontin] 100 mg PO QHS capsule 12/08/18 02/21/19 Unknown Rx Metoprolol [Lopressor TAB] 50 mg PO BID 30 Days tablet 12/08/18 02/21/19 Unknown Rx Sevelamer Carbonate [Renvela] 800 mg PO TIDWM tablet 12/08/18 02/21/19 Unknown Rx hydrALAZINE [Apresoline TAB] 100 mg PO Q8HR #120 tablet 12/08/18 02/21/19 Unknown Rx Acetaminophen [Acetaminophen TAB] 650 mg PO Q12H PRN 12/15/18 02/21/19 Unknown History Glucagon,Human Recombinant 1 mg IJ Q15MIN PRN 12/15/18 02/21/19 Unknown History [Glucagon Emergency Kit] Insulin Aspart [NovoLOG 100 See Protocol SQ QWEEK 12/15/18 02/21/19 Unknown History UNITS/ML VIAL] Active Medications: Generic Name Dose Route Start Last Admin Trade Name Freq PRN Reason Stop Dose Admin Albuterol/Ipratropium 1 ampul 02/24/19 20:00 04/04/19 08:36 Duoneb *Not For Prn Use* IH 1 ampul TIDRT SANCHEZ Administration Lipase/Protease/Amylase 1 each 03/05/19 14:04 04/02/19 21:34 Pancreazkaren Barrientos 10,500 Unit FEEDTUBE 1 each PRN PRN Administration For Clogged Feeding Tube Epoetin Solitario 20,000 unit 03/24/19 11:17 04/03/19 21:15 Procrit IV 20,000 unit UMA PRN Administration hemodialysis Famotidine 20 mg 02/23/19 10:00 04/04/19 10:18 Pepcid PO 20 mg DAILY SANCHEZ Administration Heparin Sodium (Porcine) 5,000 unit 03/04/19 22:00 04/04/19 10:19 Heparin SUB-Q 5,000 unit Q12HR SANCHEZ Administration Hydrophilic Ointment 1 applic 02/21/19 18:24 03/05/19 08:16 Vaseline Lip Therapy TP 1 applic Q2HR PRN Administration Dry Lips Sodium Chloride 100 mls @ 999 mls/hr 02/26/19 09:00 Nacl 0.9% IV UMA PRN Hypotension Insulin Human Regular 0 units 02/26/19 12:00 04/04/19 00:55 Humulin R SUB-Q Not Given Q6HR [facility] Protocol Metoprolol Tartrate 2.5 mg 02/28/19 12:06 03/15/19 05:15 Lopressor IV 2.5 mg Q4HR PRN Administration Tachycardia Multi-Ingred Cream/Lotion/Oil/Oint 1 applic 02/21/19 18:24 03/29/19 21:40 Artificial Tears Ophth Oint OU 1 applic Q4HR PRN Administration Dry Eye(s) Risperidone 1 mg 02/25/19 13:00 04/04/19 10:18 Risperdal PO 1 mg DAILY SANCHEZ Administration Scopolamine 1 each 03/13/19 04:00 04/03/19 04:56 Transderm-Scop TD 1 each Q3D SANCHEZ Administration Sertraline HCl 100 mg 02/25/19 13:00 04/04/19 10:18 Zoloft PO 100 mg DAILY SANCHEZ Administration Simple Syrup 15 ml 03/05/19 14:04 Simple Syrup FEEDTUBE PRN PRN Hypoglycemia Simple Syrup 30 ml 03/05/19 14:04 04/02/19 21:33 Simple Syrup FEEDTUBE 30 ml PRN PRN Administration Hypoglycemia Sodium Bicarbonate 325 mg 03/05/19 14:04 04/02/19 21:34 Sodium Bicarbonate FEEDTUBE 325 mg PRN PRN Administration For Clogged Feeding Tube Sodium Hypochlorite 1 applic 04/01/19 13:00 04/04/19 10:24 Dakin's Half Strength TP 1 applicatio BID SANCHEZ Administration Tramadol HCl 50 mg 03/05/19 10:08 04/02/19 21:34 Ultram PO 50 mg Q6H PRN Administration Pain, Moderate (4-6)
--- NOTE | 2019-04-04 12:52 | Progress Note ---
Assessment and Plan Assessment and plan: Patient is 63-year-old -I[place] male patient from [facility] with multiple co-morbidities including blindness, CVA, CHF, PPM/ICD, loop recorder since 2012 that is MRI compatible, IDDM type 2, sepsis left foot ulcer, afib, ESRD with complications on HD TTS, hypertension, AOCD and GERD who presented to the ED with hypotensive after intubation in the emergency room. diagnosed with fluid overload, pleural effusion. Patient has had recurrent admission in the hospital for similar reason and was recently discharged from the hospital following treatment of Severe Sepsis due to Necrotizing Unstagable sacral decubitus ulcer with ostemomylitis, has received multiple courses of broad spectrum abx. Acute hypoxic respiratory failure, status post intubation and ventilatory support, now off vent, on T-piece Acute respiratory failure on mechanical ventilator >96 hrs Extubated ; history of tracheostomy on T piece Current management , nebulizers, Currently on trach/peg placed on 03/03. Now off vent, cont oxygen supplement, improving, on t piece, nebulizers, pulmonary critical following acute on chronic systolic CHF/ Acute pulmonary edema, HD per schedule Dilated CMP, EF 35-40% Continue diuresis, supportive care Acute metabolic encephalopathy, resolved, has baseline Dementia. --ESRD on hemodialysis per schedule nephrology following --Bilateral pleural effusions improved with HD --Permanent atrial fibrillation and flutter and hypercoaguable state Not on anticoagulation because of anemia thrombocytopenia rate control meds optimized --Diabetes mellitus type 2 Accu-Chek sliding scale coverage Insulin as needed --NSTEMI type 2 , Cardiology following --Schizophrenia:stable --Legally blind, supportive care --hypertension, Monitor BP,'s adjust medications as needed --Hypokalemia; corrected --Pulmonary hypertension; continue current management --Dysphagia s/p PEG tube; PEG tubes per protocol --Sacral decub ulcer; Wound care --Severe malnutrition /hypoalbuminemia with FTT: 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, manager coding following PEG placed on 01/02/19 --Multiple decubiti, different stages , s/ p colostomy Left 5th finger, stage 4 pressure ulcer Left heel, deep tissue injury Sacrum, stage 4 pressure ulcer POA Continue wound care --History of sacral osteomyelitis and LE ulcers Completed Antibiotics, contact isolation for ESBL Klebsiella pneumonia on wound culture 01/02/19 --Anemia of chronic disease s/p 1 unit of prbc , stable --RUL atelectasis, probably mucous plugging --DVT prophylaxis; Lovenox - COD status; DNR --Very poor prognosis Dispo; Awaiting SNF placement , difficult to place ,unable to find any NH to take patient. inpatient hospice was recommended, but family is not agreeable at this time. family meeting and ethic consult as needed History Interval history: Patient was seen and evaluated this morning, Patient is on PEG and trach. Hospitalist Physical - Physical exam Narrative exam: Patient is on trach and PEG The patient appeared well nourished and normally developed. Vital signs as documented. Head exam is unremarkable. No scleral icterus . Neck is without jugular venous distension, thyromegaly, or carotid bruits. Lungs are clear to auscultation. Cardiac exam reveals regular rate and Rhythm. First and second heart sounds normal. No murmurs, rubs or gallops. Abdominal exam reveals PEG tube in place, colostomy bag in place. Extremities are nonedematous and both femoral and pedal pulses are normal. TANK FILLER: Patient follow simple commands. - Constitutional Vitals: Temp Pulse Resp BP Pulse Ox 98.9 F 80 20 142/78 97 04/04/19 12:15 04/04/19 08:36 04/04/19 12:15 04/04/19 12:15 04/04/19 09:02 General appearance: Present: no acute distress, well-nourished, other (trac heostomy on T piece) Results - Labs CBC & Chem 7: 03/31/19 10:26 03/31/19 10:26 Labs: Laboratory Last Values WBC 8.3 K/mm3 (4.5-11.0) 03/31/19 10:26 RBC 3.01 M/mm3 (3.65-5.03) L 03/31/19 10:26 Hgb 8.2 gm/dl (11.8-15.2) L 03/31/19 10:26 Hct 26.4 % (35.5-45.6) L 03/31/19 10:26 MCV 88 fl (84-94) 03/31/19 10: MCH 27 pg (28-32) L 03/31/19 10: MCHC 31 % (32-34) L 03/31/19 10:26 RDW 20.3 % (13.2-15.2) H 03/31/19 10:26 Plt Count 361 K/mm3 (140-440) 03/31/19 10: Lymph % (Auto) 13.3 % (13.4-35.0) L 03/31/19 10: [place] % (Auto) 6.5 % (0.0-7.3) 03/31/19 10: Eos % (Auto) 7.2 % (0.0-4.3) H 03/31/19 10: Baso % (Auto) 0.9 % (0.0-1.8) 03/31/19 10: Lymph # 1.1 K/mm3 (1.2-5.4) L 03/31/19 10: [place] # 0.5 K/mm3 (0.0-0.8) 03/31/19 10: Eos # 0.6 K/mm3 (0.0-0.4) H 03/31/19 10: Baso # 0.1 K/mm3 (0.0-0.1) 03/31/19 10: Add Manual Diff Complete 03/21/19 06:30 Total Counted 100 03/21/19 06:30 Seg Neutrophils % 72.1 % (40.0-70.0) H 03/31/19 10: Seg Neuts % (Manual) 81.0 % (40.0-70.0) H 03/21/19 06:30 0 % 03/21/19 06:30 8.0 % (13.4-35.0) L 03/21/19 06:30 Reactive Lymphs % (Man) 0 % 03/21/19 06:30 1.0 % (0.0-7.3) 03/21/19 06:30 8.0 % (0.0-4.3) H 03/21/19 06:30 1.0 % (0.0-1.8) 03/21/19 06:30 1.0 % 03/21/19 06:30 0 % 03/21/19 06:30 0 % 03/21/19 06:30 0 % 03/21/19 06:30 Nucleated RBC % Not Reportable 03/21/19 06:30 Seg Neutrophils # 6.0 K/mm3 (1.8-7.7) 03/31/19 10:26 Seg Neutrophils # Man 6.7 K/mm3 (1.8-7.7) 03/21/19 06:30 Band Neutrophils # 0.0 K/mm3 03/21/19 06:30 0.7 K/mm3 (1.2-5.4) L 03/21/19 06:30 Abs React Lymphs (Man) 0.0 K/mm3 03/21/19 06:30 0.1 K/mm3 (0.0-0.8) 03/21/19 06:30 0.7 K/mm3 (0.0-0.4) H 03/21/19 06:30 0.1 K/mm3 (0.0-0.1) 03/21/19 06:30 0.1 K/mm3 03/21/19 06:30 0.0 K/mm3 03/21/19 06:30 0.0 K/mm3 03/21/19 06:30 Blast Cells # 0.0 K/mm3 03/21/19 06:30 WBC Morphology Not Reportable 03/21/19 06:30 Hypersegmented Neuts Not Reportable 03/21/19 06:30 Hyposegmented Neuts Not Reportable 03/21/19 06:30 Hypogranular Neuts Not Reportable 03/21/19 06:30 Not Reportable 03/21/19 06:30 Not Reportable 03/21/19 06:30 Not Reportable 03/21/19 06:30 Not Reportable 03/21/19 06:30 Not Reportable 03/21/19 06:30 Not Reportable 03/21/19 06:30 Consistent w auto 03/21/19 06:30 Not Reportable 03/21/19 06:30 Plt Clumps, EDTA Not Reportable 03/21/19 06:30 Not Reportable 03/21/19 06:30 Not Reportable 03/21/19 06:30 Not Reportable 03/21/19 06:30 Plt Morphology Comment Not Reportable 03/21/19 06:30 RBC Morphology Not Reportable 03/21/19 06:30 Dimorphic RBCs Not Reportable 03/21/19 06:30 Not Reportable 03/21/19 06:30 Few 03/21/19 06:30 Few 03/21/19 06:30 Few 03/21/19 06:30 Not Reportable 03/21/19 06:30 Not Reportable 03/21/19 06:30 Not Reportable 03/21/19 06:30 Not Reportable 03/21/19 06:30 Not Reportable 03/21/19 06:30 1+ 03/21/19 06:30 Not Reportable 03/21/19 06:30 Few 03/21/19 06:30 Not Reportable 03/21/19 06:30 Not Reportable 03/21/19 06:30 Not Reportable 03/21/19 06:30 Not Reportable 03/21/19 06:30 Not Reportable 03/21/19 06:30 Not Reportable 03/21/19 06:30 Not Reportable 03/21/19 06:30 Acanthocytes (Spur) Not Reportable 03/21/19 06:30 Rouleaux Not Reportable 03/21/19 06:30 Not Reportable 03/21/19 06:30 Not Reportable 03/21/19 06:30 Not Reportable 03/21/19 06:30 Not Reportable 03/21/19 06:30 Hem Pathologist Commnt No 03/21/19 06:30 PT 16.3 Sec. (12.2-14.9) H 03/01/19 09:39 INR 1.35 (0.87-1.13) H 03/01/19 09:39 APTT 33.7 Sec. (24.2-36.6) 02/21/19 18:30 2987.82 ng/mlDDU (0-234) H 02/22/19 05:54 POC ABG pH 7.510 (7.35-7.45) H 03/18/19 06:38 ABG pH 7.424 pH Units (7.350-7.450) 03/19/19 04:23 POC ABG pCO2 38.9 (35-45) 03/18/19 06:38 ABG pCO2 48.0 mm Hg 03/19/19 04:23 POC ABG pO2 164 (80-105) H 03/18/19 06:38 ABG pO2 78.3 mm Hg (80.0-90.0) L 03/19/19 04:23 POC ABG HCO3 31.0 (22-26 mml/L) 03/18/19 06:38 ABG HCO3 30.7 mmol/L (20.0-26.0) H 03/19/19 04:23 POC ABG Total CO2 32 (23-27mmol/L) 03/18/19 06:38 POC ABG O2 Sat 100 03/18/19 06:38 ABG O2 Saturation 97.0 % (95.0-99.0) 03/19/19 04:23 ABG O2 Content 7.9 (0.0-44) 03/19/19 04:23 POC ABG Base Excess 8 ((-2) - (+3)mmol/L) 03/18/19 06:38 ABG Base Excess 5.8 mmol/L (-2.0-3.0) H 03/19/19 04:23 ABG Hemoglobin 5.8 gm/dl (14.0-18.0) L 03/19/19 04:23 ABG Carboxyhemoglobin 2.0 % (0.0-5.0) 03/19/19 04:23 ABG Methemoglobin 0.4 % (0.0-1.5) 03/19/19 04:23 94.6 % (95.0-99.0) L 03/19/19 04:23 35 % 03/19/19 04:23 Sodium 143 mmol/L (137-145) 03/31/19 10:26 Potassium 4.1 mmol/L (3.6-5.0) 03/31/19 10:26 Chloride 96.9 mmol/L (98-107) L 03/31/19 10:26 Carbon Dioxide 33 mmol/L (22-30) H 03/31/19 10:26 17 mmol/L 03/31/19 10:26 BUN 37 mg/dL (9-20) H 03/31/19 10:26 2.4 mg/dL (0.8-1.5) H 03/31/19 10:26 Estimated GFR 33 ml/min 03/31/19 10:26 15 % 03/31/19 10:26 Glucose 86 mg/dL (75-100) 03/31/19 10:26 POC Glucose 102 (70-105) 04/04/19 12:21 Lactic Acid 1.00 mmol/L (0.7-2.0) 02/21/19 20:58 Calcium 10.3 mg/dL (8.4-10.2) H 03/31/19 10:26 Phosphorus 4.30 mg/dL (2.5-4.5) D 03/31/19 10:26 Magnesium 2.70 mg/dL (1.7-2.3) H 03/30/19 10:13 0.20 mg/dL (0.1-1.2) 03/30/19 10:13 AST 16 units/L (5-40) 03/30/19 10:13 ALT 11 units/L (7-56) 03/30/19 10:13 185 units/L (35-129) H 03/30/19 10:13 28.0 umol/L (25-60) 02/21/19 20:04 64 units/L (55-170) 02/22/19 03:42 CK-MB (CK-2) 3.7 ng/mL (0.0-4.0) 02/22/19 03:42 CK-MB (CK-2) Rel Index 5.7 (0-4) H 02/22/19 03:42 0.193 ng/mL (0.00-0.029) H* 02/22/19 03:42 6.9 g/dL (6.3-8.2) 03/30/19 10:13 2.6 g/dL (3.9-5) L 03/30/19 10:13 0.6 % 03/30/19 10:13 Triglycerides 51 mg/dL (2-149) 02/21/19 18:30 Cholesterol 82 mg/dL (50-199) 02/21/19 18:30 36 mg/dL (50-130) L 02/21/19 18:30 40 mg/dL (40-59) 02/21/19 18:30 2.05 % 02/21/19 18:30 TSH 2.760 mlU/mL (0.270-4.200) 02/21/19 20:04 PTH Intact 267.6 pg/mL (15-65) H 03/02/19 05:15 Salicylates < 0.3 mg/dL (2.8-20.0) L 02/21/19 20:04 Acetaminophen < 5.0 ug/mL (10.0-30.0) L 02/21/19 20:04 Hepatitis A IgM Ab Non-reactive (NonReactive) 03/31/19 22:56 Hep Bs Antigen Non-reactive (Negative) 03/31/19 22:56 Hep B Core IgM Ab Non-reactive (NonReactive) 03/31/19 22:56 Non-reactive (NonReactive) 03/31/19 22:56 Blood Type O POSITIVE 03/22/19 08:48 Antibody Screen Negative 03/22/19 08:48 Crossmatch See Detail 03/22/19 08:48 Active Medications - Current Medications Current Medications: Generic Name Dose Route Start Last Admin Trade Name Freq PRN Reason Stop Dose Admin Albuterol/Ipratropium 1 ampul 02/24/19 20:00 04/04/19 08:36 Duoneb *Not For Prn Use* IH 1 ampul TIDRT SANCHEZ Administration Lipase/Protease/Amylase 1 each 03/05/19 14:04 04/02/19 21:34 Pancreaze 10,500 Unit FEEDTUBE 1 each PRN PRN Administration For Clogged Feeding Tube Epoetin Solitario 20,000 unit 03/24/19 11:17 04/03/19 21:15 Procrit IV 20,000 unit UMA PRN Administration hemodialysis Famotidine 20 mg 02/23/19 10:00 04/04/19 10:18 Pepcid PO 20 mg DAILY SANCHEZ Administration Heparin Sodium (Porcine) 5,000 unit 03/04/19 22:00 04/04/19 10:19 Heparin SUB-Q 5,000 unit Q12HR SANCHEZ Administration Hydrophilic Ointment 1 applic 02/21/19 18:24 03/05/19 08:16 Vaseline Lip Therapy TP 1 applic Q2HR PRN Administration Dry Lips Sodium Chloride 100 mls @ 999 mls/hr 02/26/19 09:00 Nacl 0.9% IV UMA PRN Hypotension Insulin Human Regular 0 units 02/26/19 12:00 04/04/19 00:55 Humulin R SUB-Q Not Given Q6HR [facility] Protocol Metoprolol Tartrate 2.5 mg 02/28/19 12:06 03/15/19 05:15 Lopressor IV 2.5 mg Q4HR PRN Administration Tachycardia Multi-Ingred Cream/Lotion/Oil/Oint 1 applic 02/21/19 18:24 03/29/19 21:40 Artificial Tears Ophth Oint OU 1 applic Q4HR PRN Administration Dry Eye(s) Risperidone 1 mg 02/25/19 13:00 04/04/19 10:18 Risperdal PO 1 mg DAILY SANCHEZ Administration Scopolamine 1 each 03/13/19 04:00 04/03/19 04:56 Transderm-Scop TD 1 each Q3D SANCHEZ Administration Sertraline HCl 100 mg 02/25/19 13:00 04/04/19 10:18 Zoloft PO 100 mg DAILY SANCHEZ Administration Simple Syrup 15 ml 03/05/19 14:04 Simple Syrup FEEDTUBE PRN PRN Hypoglycemia Simple Syrup 30 ml 03/05/19 14:04 04/02/19 21:33 Simple Syrup FEEDTUBE 30 ml PRN PRN Administration Hypoglycemia Sodium Bicarbonate 325 mg 03/05/19 14:04 04/02/19 21:34 Sodium Bicarbonate FEEDTUBE 325 mg PRN PRN Administration For Clogged Feeding Tube Sodium Hypochlorite 1 applic 04/01/19 13:00 04/04/19 10:24 Dakin's Half Strength TP 1 applicatio BID SANCHEZ Administration Tramadol HCl 50 mg 03/05/19 10:08 04/02/19 21:34 Ultram PO 50 mg Q6H PRN Administration Pain, Moderate (4-6) Nutrition/Malnutrition Assess - Dietary Evaluation Nutrition/Malnutrition Findings: Nutrition Notes Start: 02/22/19 12:51 Freq: Status: Active Protocol: Document 04/03/19 12:20 RS (Rec: 04/03/19 12:27 RS [id number]) Co-Sign 04/03/19 12:20 LP Nutrition Notes Initial or Follow up Reassessment Current Diagnosis Diabetes,Hypertension Other Pertinent Diagnosis Sacral PU, ESRD on HD (T/Thurs /Sat), Schizophrenia,Blind in L eye,S/P trach Current Diet Nepro with Carbsteady 1.8 at 50 ml/hr Labs/Tests Reviewed Pertinent Medications Reviewed Height 5 ft 10 in Weight 74.7 kg [place] Body Weight (kg) 75.45 BMI 23.6 Subjective/Other Information Nepro running at 50 ml/hr at time of visit. Pt is tolerating TF. Percent of energy/protein needs met: 96%/100% Burn Absent Trauma Absent #2 Nutrition Diagnosis Increased nutrient needs ( specify in comment below) Diagnosis Progress(for reassessment Continues documentation) #1 Nutrition Diagnosis Inadequate oral intake Diagnosis Progress(for reassessment Continues documentation) Is patient on ventilator? No Is Patient Ambulatory and/or Out of Bed No REE-([place]-St. Jeor-confined to bed) 1857.144 Kcal/Kg value to use for calculation 30 Approximate Energy Requirements Using 2241 kcal/Kg Calculation Used for Recommendations Kcal/kg Additional Notes Protein Needs: 90-112g (1.2-1. 5g/kg) Fluid Needs: 1-1.5 L/day Nutrition Intervention Change Diet Order: Continue TF Nutrition Support: Nepro with Carbsteady 1.8 at 50 ml/hr Flush 200 ml q4hr Kcal 2,160 Protein (gm) 97 Fluid (mL) 872 Add Supplement/Snack (indicate name/kcal Abhilash BID /protein ) Provides kCal: 190 Provides Protein (gm) 5 Goal #1 TF tolerance Goal #2 Continue to meet at least 80% of calorie and protein needs via TF Anticipated Discharge Needs: TF Follow-Up By: 04/10/19 Additional Comments F/U for new TF rate/tolerance
--- NOTE | 2019-04-04 14:07 | Progress Note ---
Assessment and Plan Imp: 1. Acute encephalopathy, probably metabolic or toxic 2. A/C systolic CHF 3. Dilated CMP 4. Pulm HTN 5. ESRD 6. RUL atelectasis, probably mucous plugging -> resolved 7. KEON pneumonia Rec: 1. Chest PT, Duonebs 2. Tolerating Tpiece; monitor 3. Avoid sedatives; resumed psych meds 4. DVT and GI PPx 5. TFs per PEG 6. HD per renal 7. Agree w/ DNR as per family wishes Subjective Date of service: 04/04/19 Principal diagnosis: respiratory failure Interval history: No change. Tracheostomy noted Objective Vital Signs - 12hr 04/04/19 04/04/19 04/04/19 04:00 04:11 04:12 Temperature 99.6 F Pulse Rate 80 88 Pulse Rate [ Anterior Bilateral Throughout] Respiratory 20 Rate Respiratory Rate [Anterior Bilateral Throughout] Blood Pressure 122/67 O2 Sat by Pulse 99 Oximetry 04/04/19 04/04/19 04/04/19 08:15 08:36 09:02 Temperature 98.6 F Pulse Rate 37 L Pulse Rate [ 80 Anterior Bilateral Throughout] Respiratory 20 Rate Respiratory 16 Rate [Anterior Bilateral Throughout] Blood Pressure 140/71 O2 Sat by Pulse 86 97 Oximetry 04/04/19 04/04/19 12:15 13:44 Temperature 98.9 F Pulse Rate Pulse Rate [ 81 Anterior Bilateral Throughout] Respiratory 20 Rate Respiratory 17 Rate [Anterior Bilateral Throughout] Blood Pressure 142/78 O2 Sat by Pulse Oximetry Constitutional: no acute distress, alert Eyes: non-icteric ENT: oropharynx moist Neck: supple Effort: normal Ascultation: Bilateral: diminished breath sounds, other (coarse BS bilaterally) Percussion: Bilateral: not dull Cardiovascular: other (tachy, RR; no mrg) Gastrointestinal: normoactive bowel sounds, soft, non-tender, non-distended, other (ostomy in place, brown stool) Extremities: no cyanosis, no edema, pink and warm Neurologic: other (mild weakness LUE, o/w nonfocal) Psychiatric: other (unable to assess) CBC and BMP: 03/31/19 10:26 03/31/19 10:26 ABG, PT/INR, D-dimer: ABG POC ABG pH 7.510 (7.35-7.45) H 03/18/19 06:38 ABG pH 7.424 pH Units (7.350-7.450) 03/19/19 04:23 POC ABG pCO2 38.9 (35-45) 03/18/19 06:38 ABG pCO2 48.0 mm Hg 03/19/19 04:23 POC ABG pO2 164 (80-105) H 03/18/19 06:38 ABG pO2 78.3 mm Hg (80.0-90.0) L 03/19/19 04:23 POC ABG HCO3 31.0 (22-26 mml/L) 03/18/19 06:38 POC ABG Total CO2 32 (23-27mmol/L) 03/18/19 06:38 POC ABG O2 Sat 100 03/18/19 06:38 ABG O2 Saturation 97.0 % (95.0-99.0) 03/19/19 04:23 PT/INR, D-dimer PT 16.3 Sec. (12.2-14.9) H 03/01/19 09:39 INR 1.35 (0.87-1.13) H 03/01/19 09:39 2987.82 ng/mlDDU (0-234) H 02/22/19 05:54 Abnormal lab findings: Abnormal Labs 02/21/19 02/21/19 02/21/19 18:30 18:30 18:30 WBC RBC 3.26 L Hgb 8.8 L Hct 29.0 L MCH 27 L MCHC 30 L RDW 19.1 H Lymph % (Auto) 6.1 L [place] % (Auto) Eos % (Auto) Lymph # 0.4 L [place] # Eos # Seg Neutrophils % 86.2 H Seg Neuts % (Manual) Lymphocytes % (Manual) Eosinophils % (Manual) Seg Neutrophils # Lymphocytes # (Manual) Eosinophils # (Manual) PT INR D-Dimer POC ABG pH POC ABG pCO2 POC ABG pO2 ABG pO2 ABG HCO3 ABG Base Excess ABG Hemoglobin Oxyhemoglobin Sodium 133 L Potassium 3.3 L Chloride 93.1 L Carbon Dioxide 33 H BUN Creatinine Glucose 161 H POC Glucose Calcium Phosphorus Magnesium ALT Alkaline Phosphatase 136 H Total Creatine Kinase 37 L CK-MB (CK-2) Rel Index Troponin T 0.192 H* Albumin 2.4 L LDL Cholesterol Direct 36 L PTH Intact Salicylates Acetaminophen Crossmatch 02/21/19 02/21/19 02/21/19 18:42 20:04 20:04 WBC RBC Hgb Hct MCH MCHC RDW Lymph % (Auto) [place] % (Auto) Eos % (Auto) Lymph # [place] # Eos # Seg Neutrophils % Seg Neuts % (Manual) Lymphocytes % (Manual) Eosinophils % (Manual) Seg Neutrophils # Lymphocytes # (Manual) Eosinophils # (Manual) PT INR D-Dimer POC ABG pH POC ABG pCO2 56.7 H POC ABG pO2 291 H ABG pO2 ABG HCO3 ABG Base Excess ABG Hemoglobin Oxyhemoglobin Sodium Potassium Chloride Carbon Dioxide BUN Creatinine Glucose POC Glucose Calcium Phosphorus Magnesium ALT Alkaline Phosphatase Total Creatine Kinase CK-MB (CK-2) Rel Index Troponin T Albumin LDL Cholesterol Direct PTH Intact Salicylates < 0.3 L Acetaminophen < 5.0 L Crossmatch 02/21/19 02/22/19 02/22/19 22:35 03:42 03:42 WBC RBC 3.20 L Hgb 8.8 L Hct 27.6 L MCH MCHC RDW 18.9 H Lymph % (Auto) 7.4 L [place] % (Auto) Eos % (Auto) Lymph # 0.7 L [place] # Eos # Seg Neutrophils % 84.7 H Seg Neuts % (Manual) Lymphocytes % (Manual) Eosinophils % (Manual) Seg Neutrophils # Lymphocytes # (Manual) Eosinophils # (Manual) PT INR D-Dimer POC ABG pH POC ABG pCO2 POC ABG pO2 ABG pO2 ABG HCO3 ABG Base Excess ABG Hemoglobin Oxyhemoglobin Sodium 134 L Potassium 2.6 L* D Chloride Carbon Dioxide BUN Creatinine Glucose POC Glucose Calcium Phosphorus Magnesium ALT Alkaline Phosphatase Total Creatine Kinase CK-MB (CK-2) Rel Index 5.2 H Troponin T 0.202 H* Albumin LDL Cholesterol Direct PTH Intact Salicylates Acetaminophen Crossmatch 02/22/19 02/22/19 02/22/19 03:42 05:54 09:04 WBC RBC Hgb Hct MCH MCHC RDW Lymph % (Auto) [place] % (Auto) Eos % (Auto) Lymph # [place] # Eos # Seg Neutrophils % Seg Neuts % (Manual) Lymphocytes % (Manual) Eosinophils % (Manual) Seg Neutrophils # Lymphocytes # (Manual) Eosinophils # (Manual) PT INR D-Dimer 2987.82 H POC ABG pH 7.451 H POC ABG pCO2 POC ABG pO2 ABG pO2 ABG HCO3 ABG Base Excess ABG Hemoglobin Oxyhemoglobin Sodium Potassium Chloride Carbon Dioxide BUN Creatinine Glucose POC Glucose Calcium Phosphorus Magnesium ALT Alkaline Phosphatase Total Creatine Kinase CK-MB (CK-2) Rel Index 5.7 H Troponin T 0.193 H* Albumin LDL Cholesterol Direct PTH Intact Salicylates Acetaminophen Crossmatch 02/22/19 02/22/19 02/23/19 10:36 23:56 00:52 WBC RBC Hgb Hct MCH MCHC RDW Lymph % (Auto) [place] % (Auto) Eos % (Auto) Lymph # [place] # Eos # Seg Neutrophils % Seg Neuts % (Manual) Lymphocytes % (Manual) Eosinophils % (Manual) Seg Neutrophils # Lymphocytes # (Manual) Eosinophils # (Manual) PT INR D-Dimer POC ABG pH POC ABG pCO2 POC ABG pO2 ABG pO2 ABG HCO3 ABG Base Excess ABG Hemoglobin Oxyhemoglobin Sodium Potassium 3.1 L Chloride Carbon Dioxide BUN Creatinine Glucose POC Glucose 58 L 111 H Calcium Phosphorus Magnesium ALT Alkaline Phosphatase Total Creatine Kinase CK-MB (CK-2) Rel Index Troponin T Albumin LDL Cholesterol Direct PTH Intact Salicylates Acetaminophen Crossmatch 02/23/19 02/23/19 02/23/19 05:00 06:35 14:26 WBC RBC Hgb Hct MCH MCHC RDW Lymph % (Auto) [place] % (Auto) Eos % (Auto) Lymph # [place] # Eos # Seg Neutrophils % Seg Neuts % (Manual) Lymphocytes % (Manual) Eosinophils % (Manual) Seg Neutrophils # Lymphocytes # (Manual) Eosinophils # (Manual) PT INR D-Dimer POC ABG pH POC ABG pCO2 POC ABG pO2 ABG pO2 ABG HCO3 ABG Base Excess ABG Hemoglobin Oxyhemoglobin Sodium 135 L Potassium 3.1 L Chloride Carbon Dioxide BUN 21 H Creatinine 2.0 H Glucose 57 L POC Glucose 64 L 62 L Calcium Phosphorus Magnesium ALT Alkaline Phosphatase Total Creatine Kinase CK-MB (CK-2) Rel Index Troponin T Albumin LDL Cholesterol Direct PTH Intact Salicylates Acetaminophen Crossmatch 02/24/19 02/24/19 02/24/19 02:11 04:12 04:55 WBC RBC 2.84 L Hgb 7.8 L Hct 24.5 L MCH MCHC RDW 19.5 H Lymph % (Auto) [place] % (Auto) Eos % (Auto) Lymph # [place] # Eos # Seg Neutrophils % Seg Neuts % (Manual) Lymphocytes % (Manual) Eosinophils % (Manual) Seg Neutrophils # Lymphocytes # (Manual) Eosinophils # (Manual) PT INR D-Dimer POC ABG pH 7.511 H POC ABG pCO2 33.9 L POC ABG pO2 62 L ABG pO2 ABG HCO3 ABG Base Excess ABG Hemoglobin Oxyhemoglobin Sodium Potassium Chloride Carbon Dioxide BUN Creatinine Glucose POC Glucose 69 L Calcium Phosphorus Magnesium ALT Alkaline Phosphatase Total Creatine Kinase CK-MB (CK-2) Rel Index Troponin T Albumin LDL Cholesterol Direct PTH Intact Salicylates Acetaminophen Crossmatch 02/24/19 02/24/19 02/25/19 04:55 05:41 04:45 WBC RBC Hgb Hct MCH MCHC RDW Lymph % (Auto) [place] % (Auto) Eos % (Auto) Lymph # [place] # Eos # Seg Neutrophils % Seg Neuts % (Manual) Lymphocytes % (Manual) Eosinophils % (Manual) Seg Neutrophils # Lymphocytes # (Manual) Eosinophils # (Manual) PT INR D-Dimer POC ABG pH 7.466 H POC ABG pCO2 POC ABG pO2 75 L ABG pO2 ABG HCO3 ABG Base Excess ABG Hemoglobin Oxyhemoglobin Sodium Potassium Chloride Carbon Dioxide BUN Creatinine 1.8 H Glucose 73 L POC Glucose 127 H Calcium Phosphorus Magnesium ALT Alkaline Phosphatase Total Creatine Kinase CK-MB (CK-2) Rel Index Troponin T Albumin LDL Cholesterol Direct PTH Intact Salicylates Acetaminophen Crossmatch 02/25/19 02/25/19 02/26/19 16:34 21:33 03:45 WBC RBC 2.96 L Hgb 8.0 L Hct 25.8 L MCH 27 L MCHC 31 L RDW 20.0 H Lymph % (Auto) [place] % (Auto) Eos % (Auto) Lymph # [place] # Eos # Seg Neutrophils % Seg Neuts % (Manual) Lymphocytes % (Manual) Eosinophils % (Manual) Seg Neutrophils # Lymphocytes # (Manual) Eosinophils # (Manual) PT INR D-Dimer POC ABG pH POC ABG pCO2 POC ABG pO2 ABG pO2 ABG HCO3 ABG Base Excess ABG Hemoglobin Oxyhemoglobin Sodium Potassium Chloride Carbon Dioxide BUN Creatinine Glucose POC Glucose 141 H 106 H Calcium Phosphorus Magnesium ALT Alkaline Phosphatase Total Creatine Kinase CK-MB (CK-2) Rel Index Troponin T Albumin LDL Cholesterol Direct PTH Intact Salicylates Acetaminophen Crossmatch 0802/26/19 02/26/19 03:45 04:13 07:53 WBC RBC Hgb Hct MCH MCHC RDW Lymph % (Auto) [place] % (Auto) Eos % (Auto) Lymph # [place] # Eos # Seg Neutrophils % Seg Neuts % (Manual) Lymphocytes % (Manual) Eosinophils % (Manual) Seg Neutrophils # Lymphocytes # (Manual) Eosinophils # (Manual) PT INR D-Dimer POC ABG pH 7.470 H POC ABG pCO2 POC ABG pO2 ABG pO2 ABG HCO3 ABG Base Excess ABG Hemoglobin Oxyhemoglobin Sodium Potassium Chloride Carbon Dioxide BUN Creatinine 1.8 H Glucose POC Glucose 110 H Calcium Phosphorus Magnesium ALT Alkaline Phosphatase Total Creatine Kinase CK-MB (CK-2) Rel Index Troponin T Albumin LDL Cholesterol Direct PTH Intact Salicylates Acetaminophen Crossmatch 02/26/19 02/26/19 02/27/19 11:56 17:43 00:12 WBC RBC Hgb Hct MCH MCHC RDW Lymph % (Auto) [place] % (Auto) Eos % (Auto) Lymph # [place] # Eos # Seg Neutrophils % Seg Neuts % (Manual) Lymphocytes % (Manual) Eosinophils % (Manual) Seg Neutrophils # Lymphocytes # (Manual) Eosinophils # (Manual) PT INR D-Dimer POC ABG pH POC ABG pCO2 POC ABG pO2 ABG pO2 ABG HCO3 ABG Base Excess ABG Hemoglobin Oxyhemoglobin Sodium Potassium Chloride Carbon Dioxide BUN Creatinine Glucose POC Glucose 112 H 127 H 127 H Calcium Phosphorus Magnesium ALT Alkaline Phosphatase Total Creatine Kinase CK-MB (CK-2) Rel Index Troponin T Albumin LDL Cholesterol Direct PTH Intact Salicylates Acetaminophen Crossmatch 02/27/19 02/27/19 02/27/19 04:35 13:15 18:02 WBC RBC Hgb Hct MCH MCHC RDW Lymph % (Auto) [place] % (Auto) Eos % (Auto) Lymph # [place] # Eos # Seg Neutrophils % Seg Neuts % (Manual) Lymphocytes % (Manual) Eosinophils % (Manual) Seg Neutrophils # Lymphocytes # (Manual) Eosinophils # (Manual) PT INR D-Dimer POC ABG pH 7.483 H POC ABG pCO2 POC ABG pO2 61 L ABG pO2 ABG HCO3 ABG Base Excess ABG Hemoglobin Oxyhemoglobin Sodium Potassium Chloride Carbon Dioxide BUN Creatinine Glucose POC Glucose 143 H 106 H Calcium Phosphorus Magnesium ALT Alkaline Phosphatase Total Creatine Kinase CK-MB (CK-2) Rel Index Troponin T Albumin LDL Cholesterol Direct PTH Intact Salicylates Acetaminophen Crossmatch 02/28/19 02/28/19 02/28/19 05:50 11:59 17:52 WBC RBC Hgb Hct MCH MCHC RDW Lymph % (Auto) [place] % (Auto) Eos % (Auto) Lymph # [place] # Eos # Seg Neutrophils % Seg Neuts % (Manual) Lymphocytes % (Manual) Eosinophils % (Manual) Seg Neutrophils # Lymphocytes # (Manual) Eosinophils # (Manual) PT INR D-Dimer POC ABG pH POC ABG pCO2 POC ABG pO2 ABG pO2 ABG HCO3 ABG Base Excess ABG Hemoglobin Oxyhemoglobin Sodium Potassium Chloride Carbon Dioxide BUN Creatinine Glucose POC Glucose 134 H 128 H 142 H Calcium Phosphorus Magnesium ALT Alkaline Phosphatase Total Creatine Kinase CK-MB (CK-2) Rel Index Troponin T Albumin LDL Cholesterol Direct PTH Intact Salicylates Acetaminophen Crossmatch 02/28/19 03/01/19 03/01/19 23:13 05:40 09:39 WBC RBC Hgb Hct MCH MCHC RDW Lymph % (Auto) [place] % (Auto) Eos % (Auto) Lymph # [place] # Eos # Seg Neutrophils % Seg Neuts % (Manual) Lymphocytes % (Manual) Eosinophils % (Manual) Seg Neutrophils # Lymphocytes # (Manual) Eosinophils # (Manual) PT 16.3 H INR 1.35 H D-Dimer POC ABG pH POC ABG pCO2 POC ABG pO2 ABG pO2 ABG HCO3 ABG Base Excess ABG Hemoglobin Oxyhemoglobin Sodium Potassium Chloride Carbon Dioxide BUN Creatinine Glucose POC Glucose 112 H 111 H Calcium Phosphorus Magnesium ALT Alkaline Phosphatase Total Creatine Kinase CK-MB (CK-2) Rel Index Troponin T Albumin LDL Cholesterol Direct PTH Intact Salicylates Acetaminophen Crossmatch 03/01/19 03/01/19 03/01/19 11:56 13:54 17:59 WBC RBC Hgb Hct MCH MCHC RDW Lymph % (Auto) [place] % (Auto) Eos % (Auto) Lymph # [place] # Eos # Seg Neutrophils % Seg Neuts % (Manual) Lymphocytes % (Manual) Eosinophils % (Manual) Seg Neutrophils # Lymphocytes # (Manual) Eosinophils # (Manual) PT INR D-Dimer POC ABG pH POC ABG pCO2 POC ABG pO2 ABG pO2 ABG HCO3 ABG Base Excess ABG Hemoglobin Oxyhemoglobin Sodium Potassium Chloride Carbon Dioxide BUN 33 H Creatinine 2.8 H D Glucose 176 H POC Glucose 199 H 147 H Calcium Phosphorus Magnesium ALT Alkaline Phosphatase Total Creatine Kinase CK-MB (CK-2) Rel Index Troponin T Albumin LDL Cholesterol Direct PTH Intact Salicylates Acetaminophen Crossmatch 03/02/19 03/02/19 03/02/19 05:15 05:15 05:15 WBC RBC 2.73 L Hgb 7.4 L Hct 23.0 L MCH 27 L MCHC RDW 19.9 H Lymph % (Auto) [place] % (Auto) 7.9 H Eos % (Auto) 7.6 H Lymph # 1.0 L [place] # Eos # 0.5 H Seg Neutrophils % Seg Neuts % (Manual) Lymphocytes % (Manual) Eosinophils % (Manual) Seg Neutrophils # Lymphocytes # (Manual) Eosinophils # (Manual) PT INR D-Dimer POC ABG pH POC ABG pCO2 POC ABG pO2 ABG pO2 ABG HCO3 ABG Base Excess ABG Hemoglobin Oxyhemoglobin Sodium Potassium Chloride Carbon Dioxide BUN 43 H Creatinine 3.2 H Glucose POC Glucose Calcium Phosphorus 2.30 L Magnesium ALT Alkaline Phosphatase Total Creatine Kinase CK-MB (CK-2) Rel Index Troponin T Albumin LDL Cholesterol Direct PTH Intact 267.6 H Salicylates Acetaminophen Crossmatch 03/02/19 03/02/19 03/03/19 12:32 18:20 13:30 WBC RBC Hgb Hct MCH MCHC RDW Lymph % (Auto) [place] % (Auto) Eos % (Auto) Lymph # [place] # Eos # Seg Neutrophils % Seg Neuts % (Manual) Lymphocytes % (Manual) Eosinophils % (Manual) Seg Neutrophils # Lymphocytes # (Manual) Eosinophils # (Manual) PT INR D-Dimer POC ABG pH POC ABG pCO2 POC ABG pO2 ABG pO2 ABG HCO3 ABG Base Excess ABG Hemoglobin Oxyhemoglobin Sodium Potassium Chloride 97.3 L Carbon Dioxide BUN 26 H Creatinine 2.2 H Glucose 73 L POC Glucose 111 H 156 H Calcium Phosphorus Magnesium ALT Alkaline Phosphatase Total Creatine Kinase CK-MB (CK-2) Rel Index Troponin T Albumin LDL Cholesterol Direct PTH Intact Salicylates Acetaminophen Crossmatch 03/04/19 03/04/19 03/04/19 00:02 05:37 05:40 WBC RBC 2.63 L Hgb 7.2 L Hct 22.2 L MCH MCHC RDW 20.2 H Lymph % (Auto) 10.5 L [place] % (Auto) Eos % (Auto) 4.6 H Lymph # 0.7 L [place] # Eos # Seg Neutrophils % 76.9 H Seg Neuts % (Manual) Lymphocytes % (Manual) Eosinophils % (Manual) Seg Neutrophils # Lymphocytes # (Manual) Eosinophils # (Manual) PT INR D-Dimer POC ABG pH POC ABG pCO2 POC ABG pO2 ABG pO2 ABG HCO3 ABG Base Excess ABG Hemoglobin Oxyhemoglobin Sodium Potassium Chloride Carbon Dioxide BUN Creatinine Glucose POC Glucose 136 H 123 H Calcium Phosphorus Magnesium ALT Alkaline Phosphatase Total Creatine Kinase CK-MB (CK-2) Rel Index Troponin T Albumin LDL Cholesterol Direct PTH Intact Salicylates Acetaminophen Crossmatch 03/04/19 03/04/19 03/04/19 05:40 11:39 23:20 WBC RBC Hgb Hct MCH MCHC RDW Lymph % (Auto) [place] % (Auto) Eos % (Auto) Lymph # [place] # Eos # Seg Neutrophils % Seg Neuts % (Manual) Lymphocytes % (Manual) Eosinophils % (Manual) Seg Neutrophils # Lymphocytes # (Manual) Eosinophils # (Manual) PT INR D-Dimer POC ABG pH POC ABG pCO2 POC ABG pO2 ABG pO2 ABG HCO3 ABG Base Excess ABG Hemoglobin Oxyhemoglobin Sodium Potassium Chloride Carbon Dioxide BUN 34 H Creatinine 2.7 H Glucose 114 H POC Glucose 175 H 151 H Calcium Phosphorus Magnesium ALT Alkaline Phosphatase Total Creatine Kinase CK-MB (CK-2) Rel Index Troponin T Albumin LDL Cholesterol Direct PTH Intact Salicylates Acetaminophen Crossmatch 03/05/19 03/05/19 03/05/19 05:37 12:08 17:11 WBC RBC Hgb Hct MCH MCHC RDW Lymph % (Auto) [place] % (Auto) Eos % (Auto) Lymph # [place] # Eos # Seg Neutrophils % Seg Neuts % (Manual) Lymphocytes % (Manual) Eosinophils % (Manual) Seg Neutrophils # Lymphocytes # (Manual) Eosinophils # (Manual) PT INR D-Dimer POC ABG pH POC ABG pCO2 POC ABG pO2 ABG pO2 ABG HCO3 ABG Base Excess ABG Hemoglobin Oxyhemoglobin Sodium Potassium Chloride Carbon Dioxide BUN Creatinine Glucose POC Glucose 134 H 135 H 135 H Calcium Phosphorus Magnesium ALT Alkaline Phosphatase Total Creatine Kinase CK-MB (CK-2) Rel Index Troponin T Albumin LDL Cholesterol Direct PTH Intact Salicylates Acetaminophen Crossmatch 03/06/19 03/06/19 03/06/19 00:16 13:05 18:09 WBC RBC Hgb Hct MCH MCHC RDW Lymph % (Auto) [place] % (Auto) Eos % (Auto) Lymph # [place] # Eos # Seg Neutrophils % Seg Neuts % (Manual) Lymphocytes % (Manual) Eosinophils % (Manual) Seg Neutrophils # Lymphocytes # (Manual) Eosinophils # (Manual) PT INR D-Dimer POC ABG pH POC ABG pCO2 POC ABG pO2 ABG pO2 ABG HCO3 ABG Base Excess ABG Hemoglobin Oxyhemoglobin Sodium Potassium Chloride Carbon Dioxide BUN Creatinine Glucose POC Glucose 117 H 113 H 131 H Calcium Phosphorus Magnesium ALT Alkaline Phosphatase Total Creatine Kinase CK-MB (CK-2) Rel Index Troponin T Albumin LDL Cholesterol Direct PTH Intact Salicylates Acetaminophen Crossmatch 03/07/19 03/08/19 03/08/19 05:25 05:33 16:00 WBC RBC 2.44 L Hgb 6.6 L Hct 20.8 L MCH 27 L MCHC RDW 19.2 H Lymph % (Auto) [place] % (Auto) Eos % (Auto) 8.6 H Lymph # 0.8 L [place] # Eos # 0.5 H Seg Neutrophils % 70.7 H Seg Neuts % (Manual) Lymphocytes % (Manual) Eosinophils % (Manual) Seg Neutrophils # Lymphocytes # (Manual) Eosinophils # (Manual) PT INR D-Dimer POC ABG pH POC ABG pCO2 POC ABG pO2 ABG pO2 ABG HCO3 ABG Base Excess ABG Hemoglobin Oxyhemoglobin Sodium Potassium Chloride Carbon Dioxide BUN Creatinine Glucose POC Glucose 106 H 108 H Calcium Phosphorus Magnesium ALT Alkaline Phosphatase Total Creatine Kinase CK-MB (CK-2) Rel Index Troponin T Albumin LDL Cholesterol Direct PTH Intact Salicylates Acetaminophen Crossmatch 03/08/19 03/08/19 03/08/19 16:00 18:38 Unknown WBC RBC Hgb Hct MCH MCHC RDW Lymph % (Auto) [place] % (Auto) Eos % (Auto) Lymph # [place] # Eos # Seg Neutrophils % Seg Neuts % (Manual) Lymphocytes % (Manual) Eosinophils % (Manual) Seg Neutrophils # Lymphocytes # (Manual) Eosinophils # (Manual) PT INR D-Dimer POC ABG pH POC ABG pCO2 POC ABG pO2 ABG pO2 ABG HCO3 ABG Base Excess ABG Hemoglobin Oxyhemoglobin Sodium Potassium 5.4 H D Chloride Carbon Dioxide BUN 47 H Creatinine 2.6 H Glucose POC Glucose 123 H Calcium Phosphorus Magnesium ALT < 5 L Alkaline Phosphatase Total Creatine Kinase CK-MB (CK-2) Rel Index Troponin T Albumin 2.2 L LDL Cholesterol Direct PTH Intact Salicylates Acetaminophen Crossmatch See Detail 03/09/19 03/09/19 03/09/19 10:48 12:28 13:53 WBC RBC 2.85 L Hgb 7.7 L Hct 24.2 L MCH 27 L MCHC RDW 18.7 H Lymph % (Auto) [place] % (Auto) Eos % (Auto) Lymph # [place] # Eos # Seg Neutrophils % Seg Neuts % (Manual) Lymphocytes % (Manual) Eosinophils % (Manual) Seg Neutrophils # Lymphocytes # (Manual) Eosinophils # (Manual) PT INR D-Dimer POC ABG pH POC ABG pCO2 POC ABG pO2 ABG pO2 ABG HCO3 30.5 H ABG Base Excess 5.6 H ABG Hemoglobin 8.1 L Oxyhemoglobin 93.8 L Sodium Potassium Chloride Carbon Dioxide BUN Creatinine Glucose POC Glucose 114 H Calcium Phosphorus Magnesium ALT Alkaline Phosphatase Total Creatine Kinase CK-MB (CK-2) Rel Index Troponin T Albumin LDL Cholesterol Direct PTH Intact Salicylates Acetaminophen Crossmatch 03/09/19 03/09/19 03/10/19 17:58 23:53 12:01 WBC RBC Hgb Hct MCH MCHC RDW Lymph % (Auto) [place] % (Auto) Eos % (Auto) Lymph # [place] # Eos # Seg Neutrophils % Seg Neuts % (Manual) Lymphocytes % (Manual) Eosinophils % (Manual) Seg Neutrophils # Lymphocytes # (Manual) Eosinophils # (Manual) PT INR D-Dimer POC ABG pH POC ABG pCO2 POC ABG pO2 ABG pO2 ABG HCO3 ABG Base Excess ABG Hemoglobin Oxyhemoglobin Sodium Potassium Chloride Carbon Dioxide BUN Creatinine Glucose POC Glucose 108 H 128 H 144 H Calcium Phosphorus Magnesium ALT Alkaline Phosphatase Total Creatine Kinase CK-MB (CK-2) Rel Index Troponin T Albumin LDL Cholesterol Direct PTH Intact Salicylates Acetaminophen Crossmatch 03/10/19 03/11/19 03/11/19 16:50 00:24 05:02 WBC RBC Hgb Hct MCH MCHC RDW Lymph % (Auto) [place] % (Auto) Eos % (Auto) Lymph # [place] # Eos # Seg Neutrophils % Seg Neuts % (Manual) Lymphocytes % (Manual) Eosinophils % (Manual) Seg Neutrophils # Lymphocytes # (Manual) Eosinophils # (Manual) PT INR D-Dimer POC ABG pH POC ABG pCO2 POC ABG pO2 ABG pO2 ABG HCO3 ABG Base Excess ABG Hemoglobin Oxyhemoglobin Sodium Potassium Chloride Carbon Dioxide BUN Creatinine Glucose POC Glucose 147 H 123 H 120 H Calcium Phosphorus Magnesium ALT Alkaline Phosphatase Total Creatine Kinase CK-MB (CK-2) Rel Index Troponin T Albumin LDL Cholesterol Direct PTH Intact Salicylates Acetaminophen Crossmatch 03/11/19 03/11/19 03/11/19 11:56 12:20 18:37 WBC RBC Hgb Hct MCH MCHC RDW Lymph % (Auto) [place] % (Auto) Eos % (Auto) Lymph # [place] # Eos # Seg Neutrophils % Seg Neuts % (Manual) Lymphocytes % (Manual) Eosinophils % (Manual) Seg Neutrophils # Lymphocytes # (Manual) Eosinophils # (Manual) PT INR D-Dimer POC ABG pH POC ABG pCO2 POC ABG pO2 ABG pO2 ABG HCO3 ABG Base Excess ABG Hemoglobin Oxyhemoglobin Sodium Potassium 5.2 H Chloride Carbon Dioxide BUN Creatinine Glucose POC Glucose 123 H 125 H Calcium Phosphorus Magnesium ALT Alkaline Phosphatase Total Creatine Kinase CK-MB (CK-2) Rel Index Troponin T Albumin LDL Cholesterol Direct PTH Intact Salicylates Acetaminophen Crossmatch 03/11/19 03/12/19 03/12/19 22:52 12:04 18:25 WBC RBC Hgb Hct MCH MCHC RDW Lymph % (Auto) [place] % (Auto) Eos % (Auto) Lymph # [place] # Eos # Seg Neutrophils % Seg Neuts % (Manual) Lymphocytes % (Manual) Eosinophils % (Manual) Seg Neutrophils # Lymphocytes # (Manual) Eosinophils # (Manual) PT INR D-Dimer POC ABG pH POC ABG pCO2 POC ABG pO2 ABG pO2 ABG HCO3 ABG Base Excess ABG Hemoglobin Oxyhemoglobin Sodium Potassium Chloride Carbon Dioxide BUN Creatinine Glucose POC Glucose 110 H 106 H 118 H Calcium Phosphorus Magnesium ALT Alkaline Phosphatase Total Creatine Kinase CK-MB (CK-2) Rel Index Troponin T Albumin LDL Cholesterol Direct PTH Intact Salicylates Acetaminophen Crossmatch 03/12/19 03/13/19 03/13/19 23:36 04:38 04:38 WBC RBC 2.95 L Hgb 7.9 L Hct 24.9 L MCH 27 L MCHC RDW 19.9 H Lymph % (Auto) 11.1 L [place] % (Auto) 8.1 H Eos % (Auto) 4.4 H Lymph # 0.9 L [place] # Eos # Seg Neutrophils % 75.4 H Seg Neuts % (Manual) Lymphocytes % (Manual) Eosinophils % (Manual) Seg Neutrophils # Lymphocytes # (Manual) Eosinophils # (Manual) PT INR D-Dimer POC ABG pH POC ABG pCO2 POC ABG pO2 ABG pO2 ABG HCO3 ABG Base Excess ABG Hemoglobin Oxyhemoglobin Sodium 136 L Potassium 5.1 H Chloride 93.8 L Carbon Dioxide BUN 48 H Creatinine 2.7 H Glucose 102 H POC Glucose 115 H Calcium Phosphorus Magnesium ALT < 5 L Alkaline Phosphatase 143 H Total Creatine Kinase CK-MB (CK-2) Rel Index Troponin T Albumin 2.5 L LDL Cholesterol Direct PTH Intact Salicylates Acetaminophen Crossmatch 03/13/19 03/13/19 03/13/19 05:33 13:37 18:03 WBC RBC Hgb Hct MCH MCHC RDW Lymph % (Auto) [place] % (Auto) Eos % (Auto) Lymph # [place] # Eos # Seg Neutrophils % Seg Neuts % (Manual) Lymphocytes % (Manual) Eosinophils % (Manual) Seg Neutrophils # Lymphocytes # (Manual) Eosinophils # (Manual) PT INR D-Dimer POC ABG pH POC ABG pCO2 POC ABG pO2 ABG pO2 ABG HCO3 ABG Base Excess ABG Hemoglobin Oxyhemoglobin Sodium Potassium Chloride Carbon Dioxide BUN Creatinine Glucose POC Glucose 140 H 150 H 158 H Calcium Phosphorus Magnesium ALT Alkaline Phosphatase Total Creatine Kinase CK-MB (CK-2) Rel Index Troponin T Albumin LDL Cholesterol Direct PTH Intact Salicylates Acetaminophen Crossmatch 03/13/19 03/14/19 03/14/19 23:32 05:24 12:20 WBC RBC Hgb Hct MCH MCHC RDW Lymph % (Auto) [place] % (Auto) Eos % (Auto) Lymph # [place] # Eos # Seg Neutrophils % Seg Neuts % (Manual) Lymphocytes % (Manual) Eosinophils % (Manual) Seg Neutrophils # Lymphocytes # (Manual) Eosinophils # (Manual) PT INR D-Dimer POC ABG pH POC ABG pCO2 POC ABG pO2 ABG pO2 ABG HCO3 ABG Base Excess ABG Hemoglobin Oxyhemoglobin Sodium Potassium Chloride Carbon Dioxide BUN Creatinine Glucose POC Glucose 162 H 146 H 127 H Calcium Phosphorus Magnesium ALT Alkaline Phosphatase Total Creatine Kinase CK-MB (CK-2) Rel Index Troponin T Albumin LDL Cholesterol Direct PTH Intact Salicylates Acetaminophen Crossmatch 03/14/19 03/14/19 03/15/19 18:05 23:57 04:38 WBC 12.8 H RBC 3.11 L Hgb 8.1 L Hct 26.5 L MCH 26 L MCHC 31 L RDW 19.7 H Lymph % (Auto) 4.4 L [place] % (Auto) 7.4 H Eos % (Auto) Lymph # 0.6 L [place] # 0.9 H Eos # Seg Neutrophils % 87.3 H Seg Neuts % (Manual) Lymphocytes % (Manual) Eosinophils % (Manual) Seg Neutrophils # 11.2 H Lymphocytes # (Manual) Eosinophils # (Manual) PT INR D-Dimer POC ABG pH POC ABG pCO2 POC ABG pO2 ABG pO2 ABG HCO3 ABG Base Excess ABG Hemoglobin Oxyhemoglobin Sodium Potassium Chloride Carbon Dioxide BUN Creatinine Glucose POC Glucose 142 H 155 H Calcium Phosphorus Magnesium ALT Alkaline Phosphatase Total Creatine Kinase CK-MB (CK-2) Rel Index Troponin T Albumin LDL Cholesterol Direct PTH Intact Salicylates Acetaminophen Crossmatch 03/15/19 03/15/19 03/15/19 04:38 05:31 11:32 WBC RBC Hgb Hct MCH MCHC RDW Lymph % (Auto) [place] % (Auto) Eos % (Auto) Lymph # [place] # Eos # Seg Neutrophils % Seg Neuts % (Manual) Lymphocytes % (Manual) Eosinophils % (Manual) Seg Neutrophils # Lymphocytes # (Manual) Eosinophils # (Manual) PT INR D-Dimer POC ABG pH POC ABG pCO2 POC ABG pO2 ABG pO2 ABG HCO3 ABG Base Excess ABG Hemoglobin Oxyhemoglobin Sodium 135 L Potassium Chloride 91.9 L Carbon Dioxide BUN 54 H Creatinine 2.8 H Glucose 128 H POC Glucose 160 H 109 H Calcium 11.1 H Phosphorus Magnesium ALT Alkaline Phosphatase 161 H Total Creatine Kinase CK-MB (CK-2) Rel Index Troponin T Albumin 2.3 L LDL Cholesterol Direct PTH Intact Salicylates Acetaminophen Crossmatch 03/15/19 03/15/19 03/16/19 18:15 23:41 05:40 WBC RBC Hgb Hct MCH MCHC RDW Lymph % (Auto) [place] % (Auto) Eos % (Auto) Lymph # [place] # Eos # Seg Neutrophils % Seg Neuts % (Manual) Lymphocytes % (Manual) Eosinophils % (Manual) Seg Neutrophils # Lymphocytes # (Manual) Eosinophils # (Manual) PT INR D-Dimer POC ABG pH POC ABG pCO2 POC ABG pO2 ABG pO2 ABG HCO3 ABG Base Excess ABG Hemoglobin Oxyhemoglobin Sodium Potassium Chloride Carbon Dioxide BUN Creatinine Glucose POC Glucose 151 H 110 H 163 H Calcium Phosphorus Magnesium ALT Alkaline Phosphatase Total Creatine Kinase CK-MB (CK-2) Rel Index Troponin T Albumin LDL Cholesterol Direct PTH Intact Salicylates Acetaminophen Crossmatch 03/16/19 03/16/19 03/16/19 11:55 17:04 23:58 WBC RBC Hgb Hct MCH MCHC RDW Lymph % (Auto) [place] % (Auto) Eos % (Auto) Lymph # [place] # Eos # Seg Neutrophils % Seg Neuts % (Manual) Lymphocytes % (Manual) Eosinophils % (Manual) Seg Neutrophils # Lymphocytes # (Manual) Eosinophils # (Manual) PT INR D-Dimer POC ABG pH POC ABG pCO2 POC ABG pO2 ABG pO2 ABG HCO3 ABG Base Excess ABG Hemoglobin Oxyhemoglobin Sodium Potassium Chloride Carbon Dioxide BUN Creatinine Glucose POC Glucose 114 H 147 H 192 H Calcium Phosphorus Magnesium ALT Alkaline Phosphatase Total Creatine Kinase CK-MB (CK-2) Rel Index Troponin T Albumin LDL Cholesterol Direct PTH Intact Salicylates Acetaminophen Crossmatch 03/17/19 03/17/19 03/17/19 05:53 11:17 17:01 WBC RBC Hgb Hct MCH MCHC RDW Lymph % (Auto) [place] % (Auto) Eos % (Auto) Lymph # [place] # Eos # Seg Neutrophils % Seg Neuts % (Manual) Lymphocytes % (Manual) Eosinophils % (Manual) Seg Neutrophils # Lymphocytes # (Manual) Eosinophils # (Manual) PT INR D-Dimer POC ABG pH POC ABG pCO2 POC ABG pO2 ABG pO2 ABG HCO3 ABG Base Excess ABG Hemoglobin Oxyhemoglobin Sodium Potassium Chloride Carbon Dioxide BUN Creatinine Glucose POC Glucose 151 H 161 H 152 H Calcium Phosphorus Magnesium ALT Alkaline Phosphatase Total Creatine Kinase CK-MB (CK-2) Rel Index Troponin T Albumin LDL Cholesterol Direct PTH Intact Salicylates Acetaminophen Crossmatch 03/17/19 03/18/19 03/18/19 21:47 04:15 04:44 WBC RBC Hgb Hct MCH MCHC RDW Lymph % (Auto) [place] % (Auto) Eos % (Auto) Lymph # [place] # Eos # Seg Neutrophils % Seg Neuts % (Manual) Lymphocytes % (Manual) Eosinophils % (Manual) Seg Neutrophils # Lymphocytes # (Manual) Eosinophils # (Manual) PT INR D-Dimer POC ABG pH POC ABG pCO2 POC ABG pO2 ABG pO2 102.8 H ABG HCO3 28.3 H ABG Base Excess ABG Hemoglobin 10.4 L Oxyhemoglobin 94.5 L Sodium Potassium Chloride Carbon Dioxide BUN Creatinine Glucose POC Glucose 170 H 150 H Calcium Phosphorus Magnesium ALT Alkaline Phosphatase Total Creatine Kinase CK-MB (CK-2) Rel Index Troponin T Albumin LDL Cholesterol Direct PTH Intact Salicylates Acetaminophen Crossmatch 03/18/19 03/18/19 03/18/19 06:38 12:12 17:47 WBC RBC Hgb Hct MCH MCHC RDW Lymph % (Auto) [place] % (Auto) Eos % (Auto) Lymph # [place] # Eos # Seg Neutrophils % Seg Neuts % (Manual) Lymphocytes % (Manual) Eosinophils % (Manual) Seg Neutrophils # Lymphocytes # (Manual) Eosinophils # (Manual) PT INR D-Dimer POC ABG pH 7.510 H POC ABG pCO2 POC ABG pO2 164 H ABG pO2 ABG HCO3 ABG Base Excess ABG Hemoglobin Oxyhemoglobin Sodium Potassium Chloride Carbon Dioxide BUN Creatinine Glucose POC Glucose 145 H 149 H Calcium Phosphorus Magnesium ALT Alkaline Phosphatase Total Creatine Kinase CK-MB (CK-2) Rel Index Troponin T Albumin LDL Cholesterol Direct PTH Intact Salicylates Acetaminophen Crossmatch 03/18/19 03/19/19 03/19/19 23:25 01:11 04:23 WBC 15.6 H RBC 2.51 L Hgb 6.5 L Hct 21.6 L MCH 26 L MCHC 30 L RDW 19.8 H Lymph % (Auto) 6.0 L [place] % (Auto) Eos % (Auto) Lymph # 0.9 L [place] # 1.0 H Eos # Seg Neutrophils % 85.5 H Seg Neuts % (Manual) Lymphocytes % (Manual) Eosinophils % (Manual) Seg Neutrophils # 13.4 H Lymphocytes # (Manual) Eosinophils # (Manual) PT INR D-Dimer POC ABG pH POC ABG pCO2 POC ABG pO2 ABG pO2 78.3 L ABG HCO3 30.7 H ABG Base Excess 5.8 H ABG Hemoglobin 5.8 L Oxyhemoglobin 94.6 L Sodium Potassium Chloride Carbon Dioxide BUN Creatinine Glucose POC Glucose 190 H Calcium Phosphorus Magnesium ALT Alkaline Phosphatase Total Creatine Kinase CK-MB (CK-2) Rel Index Troponin T Albumin LDL Cholesterol Direct PTH Intact Salicylates Acetaminophen Crossmatch 03/19/19 03/19/19 03/19/19 05:22 05:35 08:54 WBC RBC Hgb Hct MCH MCHC RDW Lymph % (Auto) [place] % (Auto) Eos % (Auto) Lymph # [place] # Eos # Seg Neutrophils % Seg Neuts % (Manual) Lymphocytes % (Manual) Eosinophils % (Manual) Seg Neutrophils # Lymphocytes # (Manual) Eosinophils # (Manual) PT INR D-Dimer POC ABG pH POC ABG pCO2 POC ABG pO2 ABG pO2 ABG HCO3 ABG Base Excess ABG Hemoglobin Oxyhemoglobin Sodium Potassium Chloride Carbon Dioxide BUN Creatinine Glucose POC Glucose 167 H Calcium Phosphorus Magnesium ALT Alkaline Phosphatase Total Creatine Kinase CK-MB (CK-2) Rel Index Troponin T Albumin LDL Cholesterol Direct PTH Intact Salicylates Acetaminophen Crossmatch See Detail See Detail 03/19/19 03/19/19 03/19/19 12:36 17:02 23:25 WBC RBC Hgb Hct MCH MCHC RDW Lymph % (Auto) [place] % (Auto) Eos % (Auto) Lymph # [place] # Eos # Seg Neutrophils % Seg Neuts % (Manual) Lymphocytes % (Manual) Eosinophils % (Manual) Seg Neutrophils # Lymphocytes # (Manual) Eosinophils # (Manual) PT INR D-Dimer POC ABG pH POC ABG pCO2 POC ABG pO2 ABG pO2 ABG HCO3 ABG Base Excess ABG Hemoglobin Oxyhemoglobin Sodium Potassium Chloride Carbon Dioxide BUN Creatinine Glucose POC Glucose 167 H 135 H 136 H Calcium Phosphorus Magnesium ALT Alkaline Phosphatase Total Creatine Kinase CK-MB (CK-2) Rel Index Troponin T Albumin LDL Cholesterol Direct PTH Intact Salicylates Acetaminophen Crossmatch 03/20/19 03/20/19 03/20/19 05:38 08:40 08:40 WBC RBC 2.61 L Hgb 7.1 L Hct 22.0 L MCH 27 L MCHC RDW 19.6 H Lymph % (Auto) 8.2 L [place] % (Auto) 8.3 H Eos % (Auto) 5.7 H Lymph # 0.8 L [place] # Eos # 0.5 H Seg Neutrophils % 77.3 H Seg Neuts % (Manual) Lymphocytes % (Manual) Eosinophils % (Manual) Seg Neutrophils # Lymphocytes # (Manual) Eosinophils # (Manual) PT INR D-Dimer POC ABG pH POC ABG pCO2 POC ABG pO2 ABG pO2 ABG HCO3 ABG Base Excess ABG Hemoglobin Oxyhemoglobin Sodium Potassium Chloride 95.9 L Carbon Dioxide BUN 69 H Creatinine 2.8 H Glucose 115 H POC Glucose 134 H Calcium 10.5 H Phosphorus Magnesium ALT Alkaline Phosphatase Total Creatine Kinase CK-MB (CK-2) Rel Index Troponin T Albumin LDL Cholesterol Direct PTH Intact Salicylates Acetaminophen Crossmatch 03/20/19 03/20/19 03/20/19 12:13 18:04 23:49 WBC RBC Hgb Hct MCH MCHC RDW Lymph % (Auto) [place] % (Auto) Eos % (Auto) Lymph # [place] # Eos # Seg Neutrophils % Seg Neuts % (Manual) Lymphocytes % (Manual) Eosinophils % (Manual) Seg Neutrophils # Lymphocytes # (Manual) Eosinophils # (Manual) PT INR D-Dimer POC ABG pH POC ABG pCO2 POC ABG pO2 ABG pO2 ABG HCO3 ABG Base Excess ABG Hemoglobin Oxyhemoglobin Sodium Potassium Chloride Carbon Dioxide BUN Creatinine Glucose POC Glucose 144 H 165 H 172 H Calcium Phosphorus Magnesium ALT Alkaline Phosphatase Total Creatine Kinase CK-MB (CK-2) Rel Index Troponin T Albumin LDL Cholesterol Direct PTH Intact Salicylates Acetaminophen Crossmatch 03/21/19 03/21/19 03/21/19 05:00 06:29 06:30 WBC RBC 2.72 L Hgb 7.4 L Hct 22.9 L MCH 27 L MCHC RDW 19.4 H Lymph % (Auto) [place] % (Auto) Eos % (Auto) Lymph # [place] # Eos # Seg Neutrophils % Seg Neuts % (Manual) 81.0 H Lymphocytes % (Manual) 8.0 L Eosinophils % (Manual) 8.0 H Seg Neutrophils # Lymphocytes # (Manual) 0.7 L Eosinophils # (Manual) 0.7 H PT INR D-Dimer POC ABG pH POC ABG pCO2 POC ABG pO2 ABG pO2 ABG HCO3 ABG Base Excess ABG Hemoglobin Oxyhemoglobin Sodium Potassium Chloride Carbon Dioxide 33 H BUN 43 H Creatinine 1.7 H Glucose 145 H POC Glucose 156 H Calcium Phosphorus Magnesium ALT Alkaline Phosphatase 212 H Total Creatine Kinase CK-MB (CK-2) Rel Index Troponin T Albumin 2.2 L LDL Cholesterol Direct PTH Intact Salicylates Acetaminophen Crossmatch 03/21/19 03/21/19 03/22/19 12:02 18:07 00:21 WBC RBC Hgb Hct MCH MCHC RDW Lymph % (Auto) [place] % (Auto) Eos % (Auto) Lymph # [place] # Eos # Seg Neutrophils % Seg Neuts % (Manual) Lymphocytes % (Manual) Eosinophils % (Manual) Seg Neutrophils # Lymphocytes # (Manual) Eosinophils # (Manual) PT INR D-Dimer POC ABG pH POC ABG pCO2 POC ABG pO2 ABG pO2 ABG HCO3 ABG Base Excess ABG Hemoglobin Oxyhemoglobin Sodium Potassium Chloride Carbon Dioxide BUN Creatinine Glucose POC Glucose 163 H 144 H 153 H Calcium Phosphorus Magnesium ALT Alkaline Phosphatase Total Creatine Kinase CK-MB (CK-2) Rel Index Troponin T Albumin LDL Cholesterol Direct PTH Intact Salicylates Acetaminophen Crossmatch 03/22/19 03/22/19 03/22/19 05:23 05:23 05:31 WBC RBC 2.58 L Hgb 7.1 L Hct 21.8 L MCH 27 L MCHC RDW 19.2 H Lymph % (Auto) [place] % (Auto) Eos % (Auto) Lymph # [place] # Eos # Seg Neutrophils % Seg Neuts % (Manual) Lymphocytes % (Manual) Eosinophils % (Manual) Seg Neutrophils # Lymphocytes # (Manual) Eosinophils # (Manual) PT INR D-Dimer POC ABG pH POC ABG pCO2 POC ABG pO2 ABG pO2 ABG HCO3 ABG Base Excess ABG Hemoglobin Oxyhemoglobin Sodium 147 H Potassium Chloride Carbon Dioxide BUN 68 H Creatinine 2.5 H Glucose POC Glucose 116 H Calcium 10.3 H Phosphorus Magnesium ALT Alkaline Phosphatase Total Creatine Kinase CK-MB (CK-2) Rel Index Troponin T Albumin LDL Cholesterol Direct PTH Intact Salicylates Acetaminophen Crossmatch 03/22/19 03/22/19 03/22/19 08:48 12:37 17:35 WBC RBC Hgb Hct MCH MCHC RDW Lymph % (Auto) [place] % (Auto) Eos % (Auto) Lymph # [place] # Eos # Seg Neutrophils % Seg Neuts % (Manual) Lymphocytes % (Manual) Eosinophils % (Manual) Seg Neutrophils # Lymphocytes # (Manual) Eosinophils # (Manual) PT INR D-Dimer POC ABG pH POC ABG pCO2 POC ABG pO2 ABG pO2 ABG HCO3 ABG Base Excess ABG Hemoglobin Oxyhemoglobin Sodium Potassium Chloride Carbon Dioxide BUN Creatinine Glucose POC Glucose 143 H 155 H Calcium Phosphorus Magnesium ALT Alkaline Phosphatase Total Creatine Kinase CK-MB (CK-2) Rel Index Troponin T Albumin LDL Cholesterol Direct PTH Intact Salicylates Acetaminophen Crossmatch See Detail 03/23/19 03/23/19 03/23/19 00:07 04:00 04:00 WBC 11.2 H RBC 2.32 L Hgb 6.4 L Hct 19.7 L* MCH MCHC RDW 19.4 H Lymph % (Auto) [place] % (Auto) Eos % (Auto) Lymph # [place] # Eos # Seg Neutrophils % Seg Neuts % (Manual) Lymphocytes % (Manual) Eosinophils % (Manual) Seg Neutrophils # Lymphocytes # (Manual) Eosinophils # (Manual) PT INR D-Dimer POC ABG pH POC ABG pCO2 POC ABG pO2 ABG pO2 ABG HCO3 ABG Base Excess ABG Hemoglobin Oxyhemoglobin Sodium 147 H Potassium 5.2 H Chloride Carbon Dioxide BUN 86 H Creatinine 3.2 H Glucose 128 H POC Glucose 135 H Calcium 10.3 H Phosphorus Magnesium ALT Alkaline Phosphatase Total Creatine Kinase CK-MB (CK-2) Rel Index Troponin T Albumin LDL Cholesterol Direct PTH Intact Salicylates Acetaminophen Crossmatch 03/23/19 03/23/19 03/23/19 05:21 11:36 11:36 WBC RBC Hgb 7.9 L Hct 25.0 L MCH MCHC RDW Lymph % (Auto) [place] % (Auto) Eos % (Auto) Lymph # [place] # Eos # Seg Neutrophils % Seg Neuts % (Manual) Lymphocytes % (Manual) Eosinophils % (Manual) Seg Neutrophils # Lymphocytes # (Manual) Eosinophils # (Manual) PT INR D-Dimer POC ABG pH POC ABG pCO2 POC ABG pO2 ABG pO2 ABG HCO3 ABG Base Excess ABG Hemoglobin Oxyhemoglobin Sodium Potassium Chloride Carbon Dioxide BUN Creatinine Glucose POC Glucose 132 H 147 H Calcium Phosphorus Magnesium ALT Alkaline Phosphatase Total Creatine Kinase CK-MB (CK-2) Rel Index Troponin T Albumin LDL Cholesterol Direct PTH Intact Salicylates Acetaminophen Crossmatch 03/23/19 03/24/19 03/24/19 17:31 01:22 04:20 WBC 12.2 H RBC 3.05 L Hgb 8.3 L Hct 25.9 L MCH 27 L MCHC RDW 18.7 H Lymph % (Auto) [place] % (Auto) Eos % (Auto) Lymph # [place] # Eos # Seg Neutrophils % Seg Neuts % (Manual) Lymphocytes % (Manual) Eosinophils % (Manual) Seg Neutrophils # Lymphocytes # (Manual) Eosinophils # (Manual) PT INR D-Dimer POC ABG pH POC ABG pCO2 POC ABG pO2 ABG pO2 ABG HCO3 ABG Base Excess ABG Hemoglobin Oxyhemoglobin Sodium Potassium Chloride Carbon Dioxide BUN Creatinine Glucose POC Glucose 182 H 113 H Calcium Phosphorus Magnesium ALT Alkaline Phosphatase Total Creatine Kinase CK-MB (CK-2) Rel Index Troponin T Albumin LDL Cholesterol Direct PTH Intact Salicylates Acetaminophen Crossmatch 03/24/19 03/24/19 03/24/19 04:20 11:59 18:14 WBC RBC Hgb Hct MCH MCHC RDW Lymph % (Auto) [place] % (Auto) Eos % (Auto) Lymph # [place] # Eos # Seg Neutrophils % Seg Neuts % (Manual) Lymphocytes % (Manual) Eosinophils % (Manual) Seg Neutrophils # Lymphocytes # (Manual) Eosinophils # (Manual) PT INR D-Dimer POC ABG pH POC ABG pCO2 POC ABG pO2 ABG pO2 ABG HCO3 ABG Base Excess ABG Hemoglobin Oxyhemoglobin Sodium Potassium Chloride 94.8 L Carbon Dioxide 32 H BUN 53 H Creatinine 2.3 H Glucose POC Glucose 163 H 134 H Calcium Phosphorus Magnesium ALT Alkaline Phosphatase Total Creatine Kinase CK-MB (CK-2) Rel Index Troponin T Albumin LDL Cholesterol Direct PTH Intact Salicylates Acetaminophen Crossmatch 03/24/19 03/25/19 03/25/19 23:15 05:52 12:02 WBC RBC Hgb Hct MCH MCHC RDW Lymph % (Auto) [place] % (Auto) Eos % (Auto) Lymph # [place] # Eos # Seg Neutrophils % Seg Neuts % (Manual) Lymphocytes % (Manual) Eosinophils % (Manual) Seg Neutrophils # Lymphocytes # (Manual) Eosinophils # (Manual) PT INR D-Dimer POC ABG pH POC ABG pCO2 POC ABG pO2 ABG pO2 ABG HCO3 ABG Base Excess ABG Hemoglobin Oxyhemoglobin Sodium Potassium Chloride Carbon Dioxide BUN Creatinine Glucose POC Glucose 129 H 123 H 125 H Calcium Phosphorus Magnesium ALT Alkaline Phosphatase Total Creatine Kinase CK-MB (CK-2) Rel Index Troponin T Albumin LDL Cholesterol Direct PTH Intact Salicylates Acetaminophen Crossmatch 03/25/19 03/26/19 03/26/19 17:27 00:30 05:35 WBC RBC 3.01 L Hgb 8.1 L Hct 25.7 L MCH 27 L MCHC RDW 19.2 H Lymph % (Auto) 11.4 L [place] % (Auto) Eos % (Auto) 8.0 H Lymph # 1.0 L [place] # Eos # 0.7 H Seg Neutrophils % 73.9 H Seg Neuts % (Manual) Lymphocytes % (Manual) Eosinophils % (Manual) Seg Neutrophils # Lymphocytes # (Manual) Eosinophils # (Manual) PT INR D-Dimer POC ABG pH POC ABG pCO2 POC ABG pO2 ABG pO2 ABG HCO3 ABG Base Excess ABG Hemoglobin Oxyhemoglobin Sodium Potassium Chloride Carbon Dioxide BUN Creatinine Glucose POC Glucose 130 H 129 H Calcium Phosphorus Magnesium ALT Alkaline Phosphatase Total Creatine Kinase CK-MB (CK-2) Rel Index Troponin T Albumin LDL Cholesterol Direct PTH Intact Salicylates Acetaminophen Crossmatch 03/26/19 03/26/19 03/26/19 05:35 05:45 12:16 WBC RBC Hgb Hct MCH MCHC RDW Lymph % (Auto) [place] % (Auto) Eos % (Auto) Lymph # [place] # Eos # Seg Neutrophils % Seg Neuts % (Manual) Lymphocytes % (Manual) Eosinophils % (Manual) Seg Neutrophils # Lymphocytes # (Manual) Eosinophils # (Manual) PT INR D-Dimer POC ABG pH POC ABG pCO2 POC ABG pO2 ABG pO2 ABG HCO3 ABG Base Excess ABG Hemoglobin Oxyhemoglobin Sodium Potassium Chloride 94.9 L Carbon Dioxide 31 H BUN 44 H Creatinine 2.0 H Glucose POC Glucose 118 H 107 H Calcium Phosphorus Magnesium ALT Alkaline Phosphatase Total Creatine Kinase CK-MB (CK-2) Rel Index Troponin T Albumin LDL Cholesterol Direct PTH Intact Salicylates Acetaminophen Crossmatch 03/26/19 03/27/19 03/27/19 17:56 00:36 05:37 WBC RBC Hgb Hct MCH MCHC RDW Lymph % (Auto) [place] % (Auto) Eos % (Auto) Lymph # [place] # Eos # Seg Neutrophils % Seg Neuts % (Manual) Lymphocytes % (Manual) Eosinophils % (Manual) Seg Neutrophils # Lymphocytes # (Manual) Eosinophils # (Manual) PT INR D-Dimer POC ABG pH POC ABG pCO2 POC ABG pO2 ABG pO2 ABG HCO3 ABG Base Excess ABG Hemoglobin Oxyhemoglobin Sodium Potassium Chloride Carbon Dioxide BUN Creatinine Glucose POC Glucose 107 H 110 H 122 H Calcium Phosphorus Magnesium ALT Alkaline Phosphatase Total Creatine Kinase CK-MB (CK-2) Rel Index Troponin T Albumin LDL Cholesterol Direct PTH Intact Salicylates Acetaminophen Crossmatch 03/27/19 03/27/19 03/28/19 11:22 18:00 05:17 WBC RBC Hgb Hct MCH MCHC RDW Lymph % (Auto) [place] % (Auto) Eos % (Auto) Lymph # [place] # Eos # Seg Neutrophils % Seg Neuts % (Manual) Lymphocytes % (Manual) Eosinophils % (Manual) Seg Neutrophils # Lymphocytes # (Manual) Eosinophils # (Manual) PT INR D-Dimer POC ABG pH POC ABG pCO2 POC ABG pO2 ABG pO2 ABG HCO3 ABG Base Excess ABG Hemoglobin Oxyhemoglobin Sodium Potassium Chloride Carbon Dioxide BUN Creatinine Glucose POC Glucose 120 H 111 H 107 H Calcium Phosphorus Magnesium ALT Alkaline Phosphatase Total Creatine Kinase CK-MB (CK-2) Rel Index Troponin T Albumin LDL Cholesterol Direct PTH Intact Salicylates Acetaminophen Crossmatch 03/28/19 03/28/19 03/29/19 12:27 18:08 05:47 WBC RBC Hgb Hct MCH MCHC RDW Lymph % (Auto) [place] % (Auto) Eos % (Auto) Lymph # [place] # Eos # Seg Neutrophils % Seg Neuts % (Manual) Lymphocytes % (Manual) Eosinophils % (Manual) Seg Neutrophils # Lymphocytes # (Manual) Eosinophils # (Manual) PT INR D-Dimer POC ABG pH POC ABG pCO2 POC ABG pO2 ABG pO2 ABG HCO3 ABG Base Excess ABG Hemoglobin Oxyhemoglobin Sodium Potassium Chloride Carbon Dioxide BUN Creatinine Glucose POC Glucose 114 H 121 H 112 H Calcium Phosphorus Magnesium ALT Alkaline Phosphatase Total Creatine Kinase CK-MB (CK-2) Rel Index Troponin T Albumin LDL Cholesterol Direct PTH Intact Salicylates Acetaminophen Crossmatch 03/29/19 03/29/19 03/30/19 12:14 18:08 00:31 WBC RBC Hgb Hct MCH MCHC RDW Lymph % (Auto) [place] % (Auto) Eos % (Auto) Lymph # [place] # Eos # Seg Neutrophils % Seg Neuts % (Manual) Lymphocytes % (Manual) Eosinophils % (Manual) Seg Neutrophils # Lymphocytes # (Manual) Eosinophils # (Manual) PT INR D-Dimer POC ABG pH POC ABG pCO2 POC ABG pO2 ABG pO2 ABG HCO3 ABG Base Excess ABG Hemoglobin Oxyhemoglobin Sodium Potassium Chloride Carbon Dioxide BUN Creatinine Glucose POC Glucose 117 H 140 H 114 H Calcium Phosphorus Magnesium ALT Alkaline Phosphatase Total Creatine Kinase CK-MB (CK-2) Rel Index Troponin T Albumin LDL Cholesterol Direct PTH Intact Salicylates Acetaminophen Crossmatch 03/30/19 03/30/19 03/30/19 10:13 10:13 23:53 WBC RBC 2.81 L Hgb 7.7 L Hct 24.3 L MCH 27 L MCHC RDW 19.0 H Lymph % (Auto) 12.2 L [place] % (Auto) Eos % (Auto) 7.9 H Lymph # 1.0 L [place] # Eos # 0.6 H Seg Neutrophils % 72.3 H Seg Neuts % (Manual) Lymphocytes % (Manual) Eosinophils % (Manual) Seg Neutrophils # Lymphocytes # (Manual) Eosinophils # (Manual) PT INR D-Dimer POC ABG pH POC ABG pCO2 POC ABG pO2 ABG pO2 ABG HCO3 ABG Base Excess ABG Hemoglobin Oxyhemoglobin Sodium Potassium 5.1 H Chloride 96.5 L Carbon Dioxide BUN 73 H Creatinine 3.9 H D Glucose POC Glucose 114 H Calcium 10.3 H Phosphorus 6.30 H Magnesium 2.70 H ALT Alkaline Phosphatase 185 H Total Creatine Kinase CK-MB (CK-2) Rel Index Troponin T Albumin 2.6 L LDL Cholesterol Direct PTH Intact Salicylates Acetaminophen Crossmatch 03/31/19 03/31/19 03/31/19 05:45 10:26 10:26 WBC RBC 3.01 L Hgb 8.2 L Hct 26.4 L MCH 27 L MCHC 31 L RDW 20.3 H Lymph % (Auto) 13.3 L [place] % (Auto) Eos % (Auto) 7.2 H Lymph # 1.1 L [place] # Eos # 0.6 H Seg Neutrophils % 72.1 H Seg Neuts % (Manual) Lymphocytes % (Manual) Eosinophils % (Manual) Seg Neutrophils # Lymphocytes # (Manual) Eosinophils # (Manual) PT INR D-Dimer POC ABG pH POC ABG pCO2 POC ABG pO2 ABG pO2 ABG HCO3 ABG Base Excess ABG Hemoglobin Oxyhemoglobin Sodium Potassium Chloride 96.9 L Carbon Dioxide 33 H BUN 37 H Creatinine 2.4 H Glucose POC Glucose 108 H Calcium 10.3 H Phosphorus Magnesium ALT Alkaline Phosphatase Total Creatine Kinase CK-MB (CK-2) Rel Index Troponin T Albumin LDL Cholesterol Direct PTH Intact Salicylates Acetaminophen Crossmatch 03/31/19 04/01/19 04/01/19 12:38 05:48 12:06 WBC RBC Hgb Hct MCH MCHC RDW Lymph % (Auto) [place] % (Auto) Eos % (Auto) Lymph # [place] # Eos # Seg Neutrophils % Seg Neuts % (Manual) Lymphocytes % (Manual) Eosinophils % (Manual) Seg Neutrophils # Lymphocytes # (Manual) Eosinophils # (Manual) PT INR D-Dimer POC ABG pH POC ABG pCO2 POC ABG pO2 ABG pO2 ABG HCO3 ABG Base Excess ABG Hemoglobin Oxyhemoglobin Sodium Potassium Chloride Carbon Dioxide BUN Creatinine Glucose POC Glucose 108 H 114 H 111 H Calcium Phosphorus Magnesium ALT Alkaline Phosphatase Total Creatine Kinase CK-MB (CK-2) Rel Index Troponin T Albumin LDL Cholesterol Direct PTH Intact Salicylates Acetaminophen Crossmatch 04/01/19 04/02/19 18:24 00:36 WBC RBC Hgb Hct MCH MCHC RDW Lymph % (Auto) [place] % (Auto) Eos % (Auto) Lymph # [place] # Eos # Seg Neutrophils % Seg Neuts % (Manual) Lymphocytes % (Manual) Eosinophils % (Manual) Seg Neutrophils # Lymphocytes # (Manual) Eosinophils # (Manual) PT INR D-Dimer POC ABG pH POC ABG pCO2 POC ABG pO2 ABG pO2 ABG HCO3 ABG Base Excess ABG Hemoglobin Oxyhemoglobin Sodium Potassium Chloride Carbon Dioxide BUN Creatinine Glucose POC Glucose 113 H 117 H Calcium Phosphorus Magnesium ALT Alkaline Phosphatase Total Creatine Kinase CK-MB (CK-2) Rel Index Troponin T Albumin LDL Cholesterol Direct PTH Intact Salicylates Acetaminophen Crossmatch
[2019-04-05] MEDS: INSULIN REGULAR, HUMAN 100 UNITS/1 ML SUB-Q SCH ×4 (00:47→18:30)
[2019-04-05] MEDS: traMADol 50 MG TAB PO PRN (03:08)
[2019-04-05] MEDS: IPRATROPIUM/ALBUTEROL SULFATE 3 ML AMPUL.NEB IH SCH ×3 (09:43→20:42)
[2019-04-05] MEDS: FAMOTIDINE 20 MG TAB PO SCH (10:00)
[2019-04-05] MEDS: SODIUM HYPOCHLORITE, DAKIN'S 1/2 STRENGTH (0.25%) 473 ML TOPICAL SOLN TP SCH ×2 (10:00→22:17)
[2019-04-05] MEDS: SERTRALINE 100 MG TAB PO SCH (10:00)
[2019-04-05] MEDS: risperiDONE 1 MG TAB PO SCH (10:00)
--- NOTE | 2019-04-05 11:23 | Progress Note ---
Subjective Principal diagnosis: respiratory failure Interval history: Patient was seen today for follow-up of multiple renal related issues On hemodialysis, MWF no acute distress Events of 24 hours vitals labs intake output medications were reviewed Past medical history: Reviewed Family history: Reviewed Social history: Reviewed Allergies: Reviewed Physical examination: Vitals: Reviewed HEENT:mild pallor or icterus oral mucosa moist Neck: Supple no JVD no thyromegaly Chest: Bilateral clear to auscultation anteriorly Heart: Regular rate and rhythm S1-S2 heard no S3-S4 Abdomen: Soft nontender no voluntary guarding rigidity rebound Extremity: Dry skin less than 1+ peripheral edema AV access: Has good flow, what appears to be somewhat tense and pulsatile Psychiatric: No evidence of agitation and aggression noted Overall patient appears to be ill appearing Labs and x-rays: Reviewed from today Assessment and plan ESRD: Patient will continue with hemodialysis treatment Saturday, Saturday and Saturday, as tolerated Vascular surgery needs to evaluate the fistula, I am not sure if he is a candidate for intervention Does need periodic labs Ultrafiltration only as tolerated as of March 31, 2019 hemoglobin 8.2 better platelet count 361,000 stable potassium 4.1 creatinine 2.4 bicarbonate 33 calcium 10.3 Ultrafiltration only as tolerated on hemodialysis Continue to monitor dialysis related labs periodically Prognosis long-term very poor due to dialysis and multiple comorbidities Mortality risk, in my opinion both short and long-term both are high Multiple other comorbidities including pneumonia, status post tracheotomy, cardiomyopathy ejection fraction 35-40%, history of CVA, atrial fibrillation, decubitus ulceration Continue with supportive care We'll continue to follow and make recommendation for renal standpoint Objective - Vital Signs Vital signs: Vital Signs - 12hr 04/05/19 04/05/19 04/05/19 00:00 00:02 00:12 Temperature 97.6 F Pulse Rate 80 84 Pulse Rate [ Anterior Bilateral Throughout] Respiratory 22 Rate Respiratory Rate [Anterior Bilateral Throughout] Blood Pressure 130/68 O2 Sat by Pulse 98 Oximetry O2 Sat by Pulse 98 Oximetry [ Assessment] 04/05/19 04/05/19 04/05/19 03:08 04:00 04:18 Temperature 97.8 F Pulse Rate 80 81 Pulse Rate [ Anterior Bilateral Throughout] Respiratory 22 22 Rate Respiratory Rate [Anterior Bilateral Throughout] Blood Pressure 129/68 O2 Sat by Pulse 98 Oximetry O2 Sat by Pulse Oximetry [ Assessment] 0904/05/19 04/05/19 07:44 09:44 10:00 Temperature 97.9 F Pulse Rate Pulse Rate [ 82 Anterior Bilateral Throughout] Respiratory 18 Rate Respiratory 20 Rate [Anterior Bilateral Throughout] Blood Pressure 139/63 O2 Sat by Pulse 98 Oximetry O2 Sat by Pulse Oximetry [ Assessment] - Lab 03/31/19 10:26 03/31/19 10:26 Most recent lab results ABG pH 7.424 pH Units (7.350-7.450) 03/19/19 04:23 ABG pCO2 48.0 mm Hg 03/19/19 04:23 ABG pO2 78.3 mm Hg (80.0-90.0) L 03/19/19 04:23 ABG HCO3 30.7 mmol/L (20.0-26.0) H 03/19/19 04:23 ABG O2 Saturation 97.0 % (95.0-99.0) 03/19/19 04:23 Calcium 10.3 mg/dL (8.4-10.2) H 03/31/19 10:26 Phosphorus 4.30 mg/dL (2.5-4.5) D 03/31/19 10:26 Magnesium 2.70 mg/dL (1.7-2.3) H 03/30/19 10:13 Medications & Allergies - Medications Allergies/Adverse Reactions: Allergies haloperidol [From Haldol] Adverse Reaction (Verified 03/13/18 12:10) Unknown haloperidol lactate [From Haldol] Adverse Reaction (Verified 03/13/18 12:10) Unknown Home Medications: Home Medications Medication Instructions Recorded Confirmed Last Taken Type risperiDONE [RisperDAL] 1 mg PO QAM 03/13/18 02/21/19 Unknown History Sertraline [Zoloft] 100 mg PO QDAY 08/26/18 02/21/19 Unknown History Polyethylene Glycol 3350 [Miralax 17 gm PO QDAY #30 packet 11/05/18 02/21/19 Unknown Rx 3350] Aspirin EC [Halfprin EC] 81 mg PO DAILY #30 11/19/18 02/21/19 Unknown Rx Docusate Sodium [Colace CAP] 100 mg PO BID #60 11/19/18 02/21/19 Unknown Rx Folic Acid [Folvite] 1 mg PO DAILY #30 tab 11/19/18 02/21/19 Unknown Rx Famotidine [Pepcid] 20 mg PO DAILY tablet 12/08/18 02/21/19 Unknown Rx Gabapentin [Neurontin] 100 mg PO QHS capsule 12/08/18 02/21/19 Unknown Rx Metoprolol [Lopressor TAB] 50 mg PO BID 30 Days tablet 12/08/18 02/21/19 Unknown Rx Sevelamer Carbonate [Renvela] 800 mg PO TIDWM tablet 12/08/18 02/21/19 Unknown Rx hydrALAZINE [Apresoline TAB] 100 mg PO Q8HR #120 tablet 12/08/18 02/21/19 Unknown Rx Acetaminophen [Acetaminophen TAB] 650 mg PO Q12H PRN 12/15/18 02/21/19 Unknown History Glucagon,Human Recombinant 1 mg IJ Q15MIN PRN 12/15/18 02/21/19 Unknown History [Glucagon Emergency Kit] Insulin Aspart [NovoLOG 100 See Protocol SQ QWEEK 12/15/18 02/21/19 Unknown History UNITS/ML VIAL] Active Medications: Generic Name Dose Route Start Last Admin Trade Name Freq PRN Reason Stop Dose Admin Albuterol/Ipratropium 1 ampul 02/24/19 20:00 04/05/19 09:43 Duoneb *Not For Prn Use* IH 1 ampul TIDRT SANCHEZ Administration Lipase/Protease/Amylase 1 each 03/05/19 14:04 04/02/19 21:34 Pancreaze 10,500 Unit FEEDTUBE 1 each PRN PRN Administration For Clogged Feeding Tube Epoetin Solitario 20,000 unit 03/24/19 11:17 04/03/19 21:15 Procrit IV 20,000 unit UMA PRN Administration hemodialysis Famotidine 20 mg 02/23/19 10:00 04/05/19 10:00 Pepcid PO 20 mg DAILY SANCHEZ Administration Hydrophilic Ointment 1 applic 02/21/19 18:24 03/05/19 08:16 Vaseline Lip Therapy TP 1 applic Q2HR PRN Administration Dry Lips Sodium Chloride 100 mls @ 999 mls/hr 02/26/19 09:00 Nacl 0.9% IV UMA PRN Hypotension Insulin Human Regular 0 units 02/26/19 12:00 04/05/19 08:39 Humulin R SUB-Q Not Given Q6HR SANCHEZ Protocol Metoprolol Tartrate 2.5 mg 02/28/19 12:06 03/15/19 05:15 Lopressor IV 2.5 mg Q4HR PRN Administration Tachycardia Multi-Ingred Cream/Lotion/Oil/Oint 1 applic 02/21/19 18:24 03/29/19 21:40 Artificial Tears Ophth Oint OU 1 applic Q4HR PRN Administration Dry Eye(s) Risperidone 1 mg 02/25/19 13:00 04/05/19 10:00 Risperdal PO 1 mg DAILY SANCHEZ Administration Scopolamine 1 each 03/13/19 04:00 04/03/19 04:56 Transderm-Scop TD 1 each Q3D SANCHEZ Administration Sertraline HCl 100 mg 02/25/19 13:00 04/05/19 10:00 Zoloft PO 100 mg DAILY SANCHEZ Administration Simple Syrup 15 ml 03/05/19 14:04 Simple Syrup FEEDTUBE PRN PRN Hypoglycemia Simple Syrup 30 ml 03/05/19 14:04 04/02/19 21:33 Simple Syrup FEEDTUBE 30 ml PRN PRN Administration Hypoglycemia Sodium Bicarbonate 325 mg 03/05/19 14:04 04/02/19 21:34 Sodium Bicarbonate FEEDTUBE 325 mg PRN PRN Administration For Clogged Feeding Tube Sodium Hypochlorite 1 applic 04/01/19 13:00 04/05/19 10:00 Dakin's Half Strength TP 1 applicatio BID SANCHEZ Administration
--- NOTE | 2019-04-05 13:06 | Progress Note ---
Assessment and Plan Imp: 1. Acute encephalopathy, probably metabolic or toxic 2. A/C systolic CHF 3. Dilated CMP 4. Pulm HTN 5. ESRD 6. RUL atelectasis, probably mucous plugging -> resolved 7. KEON pneumonia Rec: 1. Chest PT, Duonebs 2. Tolerating Tpiece; monitor 3. Avoid sedatives; resumed psych meds 4. DVT and GI PPx 5. TFs per PEG 6. HD per renal 7. Agree w/ DNR as per family wishes Subjective Date of service: 04/05/19 Principal diagnosis: respiratory failure Interval history: No change. Tracheostomy noted Objective Vital Signs - 12hr 04/05/19 04/05/19 04/05/19 03:08 04:00 04:18 Temperature 97.8 F Pulse Rate 80 81 Pulse Rate [ Anterior Bilateral Throughout] Respiratory 22 22 Rate Respiratory Rate [Anterior Bilateral Throughout] Blood Pressure 129/68 Blood Pressure [Right] O2 Sat by Pulse 98 Oximetry 04/05/19 04/05/19 04/05/19 07:44 09:44 10:00 Temperature 97.9 F Pulse Rate Pulse Rate [ 82 Anterior Bilateral Throughout] Respiratory 18 20 Rate Respiratory 20 Rate [Anterior Bilateral Throughout] Blood Pressure 139/63 Blood Pressure [Right] O2 Sat by Pulse 98 Oximetry 04/05/19 11:57 Temperature 98.6 F Pulse Rate 85 Pulse Rate [ Anterior Bilateral Throughout] Respiratory 18 Rate Respiratory Rate [Anterior Bilateral Throughout] Blood Pressure Blood Pressure 136/68 [Right] O2 Sat by Pulse 90 Oximetry Constitutional: no acute distress, alert Eyes: non-icteric ENT: oropharynx moist Neck: supple Effort: normal Ascultation: Bilateral: diminished breath sounds, other (coarse BS bilaterally) Percussion: Bilateral: not dull Cardiovascular: other (tachy, RR; no mrg) Gastrointestinal: normoactive bowel sounds, soft, non-tender, non-distended, other (ostomy in place, brown stool) Extremities: no cyanosis, no edema, pink and warm Neurologic: other (mild weakness LUE, o/w nonfocal) Psychiatric: other (unable to assess) CBC and BMP: 03/31/19 10:26 03/31/19 10:26 ABG, PT/INR, D-dimer: ABG POC ABG pH 7.510 (7.35-7.45) H 03/18/19 06:38 ABG pH 7.424 pH Units (7.350-7.450) 03/19/19 04:23 POC ABG pCO2 38.9 (35-45) 03/18/19 06:38 ABG pCO2 48.0 mm Hg 03/19/19 04:23 POC ABG pO2 164 (80-105) H 03/18/19 06:38 ABG pO2 78.3 mm Hg (80.0-90.0) L 03/19/19 04:23 POC ABG HCO3 31.0 (22-26 mml/L) 03/18/19 06:38 POC ABG Total CO2 32 (23-27mmol/L) 03/18/19 06:38 POC ABG O2 Sat 100 03/18/19 06:38 ABG O2 Saturation 97.0 % (95.0-99.0) 03/19/19 04:23 PT/INR, D-dimer PT 16.3 Sec. (12.2-14.9) H 03/01/19 09:39 INR 1.35 (0.87-1.13) H 03/01/19 09:39 2987.82 ng/mlDDU (0-234) H 02/22/19 05:54 Abnormal lab findings: Abnormal Labs 02/21/19 02/21/19 02/21/19 18:30 18:30 18:30 WBC RBC 3.26 L Hgb 8.8 L Hct 29.0 L MCH 27 L MCHC 30 L RDW 19.1 H Lymph % (Auto) 6.1 L [place] % (Auto) Eos % (Auto) Lymph # 0.4 L [place] # Eos # Seg Neutrophils % 86.2 H Seg Neuts % (Manual) Lymphocytes % (Manual) Eosinophils % (Manual) Seg Neutrophils # Lymphocytes # (Manual) Eosinophils # (Manual) PT INR D-Dimer POC ABG pH POC ABG pCO2 POC ABG pO2 ABG pO2 ABG HCO3 ABG Base Excess ABG Hemoglobin Oxyhemoglobin Sodium 133 L Potassium 3.3 L Chloride 93.1 L Carbon Dioxide 33 H BUN Creatinine Glucose 161 H POC Glucose Calcium Phosphorus Magnesium ALT Alkaline Phosphatase 136 H Total Creatine Kinase 37 L CK-MB (CK-2) Rel Index Troponin T 0.192 H* Albumin 2.4 L LDL Cholesterol Direct 36 L PTH Intact Salicylates Acetaminophen Crossmatch 02/21/19 02/21/19 02/21/19 18:42 20:04 20:04 WBC RBC Hgb Hct MCH MCHC RDW Lymph % (Auto) [place] % (Auto) Eos % (Auto) Lymph # [place] # Eos # Seg Neutrophils % Seg Neuts % (Manual) Lymphocytes % (Manual) Eosinophils % (Manual) Seg Neutrophils # Lymphocytes # (Manual) Eosinophils # (Manual) PT INR D-Dimer POC ABG pH POC ABG pCO2 56.7 H POC ABG pO2 291 H ABG pO2 ABG HCO3 ABG Base Excess ABG Hemoglobin Oxyhemoglobin Sodium Potassium Chloride Carbon Dioxide BUN Creatinine Glucose POC Glucose Calcium Phosphorus Magnesium ALT Alkaline Phosphatase Total Creatine Kinase CK-MB (CK-2) Rel Index Troponin T Albumin LDL Cholesterol Direct PTH Intact Salicylates < 0.3 L Acetaminophen < 5.0 L Crossmatch 02/21/19 02/22/19 02/22/19 22:35 03:42 03:42 WBC RBC 3.20 L Hgb 8.8 L Hct 27.6 L MCH MCHC RDW 18.9 H Lymph % (Auto) 7.4 L [place] % (Auto) Eos % (Auto) Lymph # 0.7 L [place] # Eos # Seg Neutrophils % 84.7 H Seg Neuts % (Manual) Lymphocytes % (Manual) Eosinophils % (Manual) Seg Neutrophils # Lymphocytes # (Manual) Eosinophils # (Manual) PT INR D-Dimer POC ABG pH POC ABG pCO2 POC ABG pO2 ABG pO2 ABG HCO3 ABG Base Excess ABG Hemoglobin Oxyhemoglobin Sodium 134 L Potassium 2.6 L* D Chloride Carbon Dioxide BUN Creatinine Glucose POC Glucose Calcium Phosphorus Magnesium ALT Alkaline Phosphatase Total Creatine Kinase CK-MB (CK-2) Rel Index 5.2 H Troponin T 0.202 H* Albumin LDL Cholesterol Direct PTH Intact Salicylates Acetaminophen Crossmatch 02/22/19 02/22/19 02/22/19 03:42 05:54 09:04 WBC RBC Hgb Hct MCH MCHC RDW Lymph % (Auto) [place] % (Auto) Eos % (Auto) Lymph # [place] # Eos # Seg Neutrophils % Seg Neuts % (Manual) Lymphocytes % (Manual) Eosinophils % (Manual) Seg Neutrophils # Lymphocytes # (Manual) Eosinophils # (Manual) PT INR D-Dimer 2987.82 H POC ABG pH 7.451 H POC ABG pCO2 POC ABG pO2 ABG pO2 ABG HCO3 ABG Base Excess ABG Hemoglobin Oxyhemoglobin Sodium Potassium Chloride Carbon Dioxide BUN Creatinine Glucose POC Glucose Calcium Phosphorus Magnesium ALT Alkaline Phosphatase Total Creatine Kinase CK-MB (CK-2) Rel Index 5.7 H Troponin T 0.193 H* Albumin LDL Cholesterol Direct PTH Intact Salicylates Acetaminophen Crossmatch 02/22/19 02/22/19 02/23/19 10:36 23:56 00:52 WBC RBC Hgb Hct MCH MCHC RDW Lymph % (Auto) [place] % (Auto) Eos % (Auto) Lymph # [place] # Eos # Seg Neutrophils % Seg Neuts % (Manual) Lymphocytes % (Manual) Eosinophils % (Manual) Seg Neutrophils # Lymphocytes # (Manual) Eosinophils # (Manual) PT INR D-Dimer POC ABG pH POC ABG pCO2 POC ABG pO2 ABG pO2 ABG HCO3 ABG Base Excess ABG Hemoglobin Oxyhemoglobin Sodium Potassium 3.1 L Chloride Carbon Dioxide BUN Creatinine Glucose POC Glucose 58 L 111 H Calcium Phosphorus Magnesium ALT Alkaline Phosphatase Total Creatine Kinase CK-MB (CK-2) Rel Index Troponin T Albumin LDL Cholesterol Direct PTH Intact Salicylates Acetaminophen Crossmatch 02/23/19 02/23/19 02/23/19 05:00 06:35 14:26 WBC RBC Hgb Hct MCH MCHC RDW Lymph % (Auto) [place] % (Auto) Eos % (Auto) Lymph # [place] # Eos # Seg Neutrophils % Seg Neuts % (Manual) Lymphocytes % (Manual) Eosinophils % (Manual) Seg Neutrophils # Lymphocytes # (Manual) Eosinophils # (Manual) PT INR D-Dimer POC ABG pH POC ABG pCO2 POC ABG pO2 ABG pO2 ABG HCO3 ABG Base Excess ABG Hemoglobin Oxyhemoglobin Sodium 135 L Potassium 3.1 L Chloride Carbon Dioxide BUN 21 H Creatinine 2.0 H Glucose 57 L POC Glucose 64 L 62 L Calcium Phosphorus Magnesium ALT Alkaline Phosphatase Total Creatine Kinase CK-MB (CK-2) Rel Index Troponin T Albumin LDL Cholesterol Direct PTH Intact Salicylates Acetaminophen Crossmatch 02/24/19 02/24/19 02/24/19 02:11 04:12 04:55 WBC RBC 2.84 L Hgb 7.8 L Hct 24.5 L MCH MCHC RDW 19.5 H Lymph % (Auto) [place] % (Auto) Eos % (Auto) Lymph # [place] # Eos # Seg Neutrophils % Seg Neuts % (Manual) Lymphocytes % (Manual) Eosinophils % (Manual) Seg Neutrophils # Lymphocytes # (Manual) Eosinophils # (Manual) PT INR D-Dimer POC ABG pH 7.511 H POC ABG pCO2 33.9 L POC ABG pO2 62 L ABG pO2 ABG HCO3 ABG Base Excess ABG Hemoglobin Oxyhemoglobin Sodium Potassium Chloride Carbon Dioxide BUN Creatinine Glucose POC Glucose 69 L Calcium Phosphorus Magnesium ALT Alkaline Phosphatase Total Creatine Kinase CK-MB (CK-2) Rel Index Troponin T Albumin LDL Cholesterol Direct PTH Intact Salicylates Acetaminophen Crossmatch 02/24/19 02/24/19 02/25/19 04:55 05:41 04:45 WBC RBC Hgb Hct MCH MCHC RDW Lymph % (Auto) [place] % (Auto) Eos % (Auto) Lymph # [place] # Eos # Seg Neutrophils % Seg Neuts % (Manual) Lymphocytes % (Manual) Eosinophils % (Manual) Seg Neutrophils # Lymphocytes # (Manual) Eosinophils # (Manual) PT INR D-Dimer POC ABG pH 7.466 H POC ABG pCO2 POC ABG pO2 75 L ABG pO2 ABG HCO3 ABG Base Excess ABG Hemoglobin Oxyhemoglobin Sodium Potassium Chloride Carbon Dioxide BUN Creatinine 1.8 H Glucose 73 L POC Glucose 127 H Calcium Phosphorus Magnesium ALT Alkaline Phosphatase Total Creatine Kinase CK-MB (CK-2) Rel Index Troponin T Albumin LDL Cholesterol Direct PTH Intact Salicylates Acetaminophen Crossmatch 02/25/19 02/25/19 02/26/19 16:34 21:33 03:45 WBC RBC 2.96 L Hgb 8.0 L Hct 25.8 L MCH 27 L MCHC 31 L RDW 20.0 H Lymph % (Auto) [place] % (Auto) Eos % (Auto) Lymph # [place] # Eos # Seg Neutrophils % Seg Neuts % (Manual) Lymphocytes % (Manual) Eosinophils % (Manual) Seg Neutrophils # Lymphocytes # (Manual) Eosinophils # (Manual) PT INR D-Dimer POC ABG pH POC ABG pCO2 POC ABG pO2 ABG pO2 ABG HCO3 ABG Base Excess ABG Hemoglobin Oxyhemoglobin Sodium Potassium Chloride Carbon Dioxide BUN Creatinine Glucose POC Glucose 141 H 106 H Calcium Phosphorus Magnesium ALT Alkaline Phosphatase Total Creatine Kinase CK-MB (CK-2) Rel Index Troponin T Albumin LDL Cholesterol Direct PTH Intact Salicylates Acetaminophen Crossmatch 02/26/19 02/26/19 02/26/19 03:45 04:13 07:53 WBC RBC Hgb Hct MCH MCHC RDW Lymph % (Auto) [place] % (Auto) Eos % (Auto) Lymph # [place] # Eos # Seg Neutrophils % Seg Neuts % (Manual) Lymphocytes % (Manual) Eosinophils % (Manual) Seg Neutrophils # Lymphocytes # (Manual) Eosinophils # (Manual) PT INR D-Dimer POC ABG pH 7.470 H POC ABG pCO2 POC ABG pO2 ABG pO2 ABG HCO3 ABG Base Excess ABG Hemoglobin Oxyhemoglobin Sodium Potassium Chloride Carbon Dioxide BUN Creatinine 1.8 H Glucose POC Glucose 110 H Calcium Phosphorus Magnesium ALT Alkaline Phosphatase Total Creatine Kinase CK-MB (CK-2) Rel Index Troponin T Albumin LDL Cholesterol Direct PTH Intact Salicylates Acetaminophen Crossmatch 02/26/19 02/26/19 02/27/19 11:56 17:43 00:12 WBC RBC Hgb Hct MCH MCHC RDW Lymph % (Auto) [place] % (Auto) Eos % (Auto) Lymph # [place] # Eos # Seg Neutrophils % Seg Neuts % (Manual) Lymphocytes % (Manual) Eosinophils % (Manual) Seg Neutrophils # Lymphocytes # (Manual) Eosinophils # (Manual) PT INR D-Dimer POC ABG pH POC ABG pCO2 POC ABG pO2 ABG pO2 ABG HCO3 ABG Base Excess ABG Hemoglobin Oxyhemoglobin Sodium Potassium Chloride Carbon Dioxide BUN Creatinine Glucose POC Glucose 112 H 127 H 127 H Calcium Phosphorus Magnesium ALT Alkaline Phosphatase Total Creatine Kinase CK-MB (CK-2) Rel Index Troponin T Albumin LDL Cholesterol Direct PTH Intact Salicylates Acetaminophen Crossmatch 02/27/19 02/27/19 02/27/19 04:35 13:15 18:02 WBC RBC Hgb Hct MCH MCHC RDW Lymph % (Auto) [place] % (Auto) Eos % (Auto) Lymph # [place] # Eos # Seg Neutrophils % Seg Neuts % (Manual) Lymphocytes % (Manual) Eosinophils % (Manual) Seg Neutrophils # Lymphocytes # (Manual) Eosinophils # (Manual) PT INR D-Dimer POC ABG pH 7.483 H POC ABG pCO2 POC ABG pO2 61 L ABG pO2 ABG HCO3 ABG Base Excess ABG Hemoglobin Oxyhemoglobin Sodium Potassium Chloride Carbon Dioxide BUN Creatinine Glucose POC Glucose 143 H 106 H Calcium Phosphorus Magnesium ALT Alkaline Phosphatase Total Creatine Kinase CK-MB (CK-2) Rel Index Troponin T Albumin LDL Cholesterol Direct PTH Intact Salicylates Acetaminophen Crossmatch 02/28/19 02/28/19 02/28/19 05:50 11:59 17:52 WBC RBC Hgb Hct MCH MCHC RDW Lymph % (Auto) [place] % (Auto) Eos % (Auto) Lymph # [place] # Eos # Seg Neutrophils % Seg Neuts % (Manual) Lymphocytes % (Manual) Eosinophils % (Manual) Seg Neutrophils # Lymphocytes # (Manual) Eosinophils # (Manual) PT INR D-Dimer POC ABG pH POC ABG pCO2 POC ABG pO2 ABG pO2 ABG HCO3 ABG Base Excess ABG Hemoglobin Oxyhemoglobin Sodium Potassium Chloride Carbon Dioxide BUN Creatinine Glucose POC Glucose 134 H 128 H 142 H Calcium Phosphorus Magnesium ALT Alkaline Phosphatase Total Creatine Kinase CK-MB (CK-2) Rel Index Troponin T Albumin LDL Cholesterol Direct PTH Intact Salicylates Acetaminophen Crossmatch 02/28/19 03/01/19 03/01/19 23:13 05:40 09:39 WBC RBC Hgb Hct MCH MCHC RDW Lymph % (Auto) [place] % (Auto) Eos % (Auto) Lymph # [place] # Eos # Seg Neutrophils % Seg Neuts % (Manual) Lymphocytes % (Manual) Eosinophils % (Manual) Seg Neutrophils # Lymphocytes # (Manual) Eosinophils # (Manual) PT 16.3 H INR 1.35 H D-Dimer POC ABG pH POC ABG pCO2 POC ABG pO2 ABG pO2 ABG HCO3 ABG Base Excess ABG Hemoglobin Oxyhemoglobin Sodium Potassium Chloride Carbon Dioxide BUN Creatinine Glucose POC Glucose 112 H 111 H Calcium Phosphorus Magnesium ALT Alkaline Phosphatase Total Creatine Kinase CK-MB (CK-2) Rel Index Troponin T Albumin LDL Cholesterol Direct PTH Intact Salicylates Acetaminophen Crossmatch 03/01/19 03/01/19 03/01/19 11:56 13:54 17:59 WBC RBC Hgb Hct MCH MCHC RDW Lymph % (Auto) [place] % (Auto) Eos % (Auto) Lymph # [place] # Eos # Seg Neutrophils % Seg Neuts % (Manual) Lymphocytes % (Manual) Eosinophils % (Manual) Seg Neutrophils # Lymphocytes # (Manual) Eosinophils # (Manual) PT INR D-Dimer POC ABG pH POC ABG pCO2 POC ABG pO2 ABG pO2 ABG HCO3 ABG Base Excess ABG Hemoglobin Oxyhemoglobin Sodium Potassium Chloride Carbon Dioxide BUN 33 H Creatinine 2.8 H D Glucose 176 H POC Glucose 199 H 147 H Calcium Phosphorus Magnesium ALT Alkaline Phosphatase Total Creatine Kinase CK-MB (CK-2) Rel Index Troponin T Albumin LDL Cholesterol Direct PTH Intact Salicylates Acetaminophen Crossmatch 03/02/19 03/02/19 03/02/19 05:15 05:15 05:15 WBC RBC 2.73 L Hgb 7.4 L Hct 23.0 L MCH 27 L MCHC RDW 19.9 H Lymph % (Auto) [place] % (Auto) 7.9 H Eos % (Auto) 7.6 H Lymph # 1.0 L [place] # Eos # 0.5 H Seg Neutrophils % Seg Neuts % (Manual) Lymphocytes % (Manual) Eosinophils % (Manual) Seg Neutrophils # Lymphocytes # (Manual) Eosinophils # (Manual) PT INR D-Dimer POC ABG pH POC ABG pCO2 POC ABG pO2 ABG pO2 ABG HCO3 ABG Base Excess ABG Hemoglobin Oxyhemoglobin Sodium Potassium Chloride Carbon Dioxide BUN 43 H Creatinine 3.2 H Glucose POC Glucose Calcium Phosphorus 2.30 L Magnesium ALT Alkaline Phosphatase Total Creatine Kinase CK-MB (CK-2) Rel Index Troponin T Albumin LDL Cholesterol Direct PTH Intact 267.6 H Salicylates Acetaminophen Crossmatch 03/02/19 03/02/19 03/03/19 12:32 18:20 13:30 WBC RBC Hgb Hct MCH MCHC RDW Lymph % (Auto) [place] % (Auto) Eos % (Auto) Lymph # [place] # Eos # Seg Neutrophils % Seg Neuts % (Manual) Lymphocytes % (Manual) Eosinophils % (Manual) Seg Neutrophils # Lymphocytes # (Manual) Eosinophils # (Manual) PT INR D-Dimer POC ABG pH POC ABG pCO2 POC ABG pO2 ABG pO2 ABG HCO3 ABG Base Excess ABG Hemoglobin Oxyhemoglobin Sodium Potassium Chloride 97.3 L Carbon Dioxide BUN 26 H Creatinine 2.2 H Glucose 73 L POC Glucose 111 H 156 H Calcium Phosphorus Magnesium ALT Alkaline Phosphatase Total Creatine Kinase CK-MB (CK-2) Rel Index Troponin T Albumin LDL Cholesterol Direct PTH Intact Salicylates Acetaminophen Crossmatch 03/04/19 03/04/19 03/04/19 00:02 05:37 05:40 WBC RBC 2.63 L Hgb 7.2 L Hct 22.2 L MCH MCHC RDW 20.2 H Lymph % (Auto) 10.5 L [place] % (Auto) Eos % (Auto) 4.6 H Lymph # 0.7 L [place] # Eos # Seg Neutrophils % 76.9 H Seg Neuts % (Manual) Lymphocytes % (Manual) Eosinophils % (Manual) Seg Neutrophils # Lymphocytes # (Manual) Eosinophils # (Manual) PT INR D-Dimer POC ABG pH POC ABG pCO2 POC ABG pO2 ABG pO2 ABG HCO3 ABG Base Excess ABG Hemoglobin Oxyhemoglobin Sodium Potassium Chloride Carbon Dioxide BUN Creatinine Glucose POC Glucose 136 H 123 H Calcium Phosphorus Magnesium ALT Alkaline Phosphatase Total Creatine Kinase CK-MB (CK-2) Rel Index Troponin T Albumin LDL Cholesterol Direct PTH Intact Salicylates Acetaminophen Crossmatch 03/04/19 03/04/19 03/04/19 05:40 11:39 23:20 WBC RBC Hgb Hct MCH MCHC RDW Lymph % (Auto) [place] % (Auto) Eos % (Auto) Lymph # [place] # Eos # Seg Neutrophils % Seg Neuts % (Manual) Lymphocytes % (Manual) Eosinophils % (Manual) Seg Neutrophils # Lymphocytes # (Manual) Eosinophils # (Manual) PT INR D-Dimer POC ABG pH POC ABG pCO2 POC ABG pO2 ABG pO2 ABG HCO3 ABG Base Excess ABG Hemoglobin Oxyhemoglobin Sodium Potassium Chloride Carbon Dioxide BUN 34 H Creatinine 2.7 H Glucose 114 H POC Glucose 175 H 151 H Calcium Phosphorus Magnesium ALT Alkaline Phosphatase Total Creatine Kinase CK-MB (CK-2) Rel Index Troponin T Albumin LDL Cholesterol Direct PTH Intact Salicylates Acetaminophen Crossmatch 03/05/19 03/05/19 03/05/19 05:37 12:08 17:11 WBC RBC Hgb Hct MCH MCHC RDW Lymph % (Auto) [place] % (Auto) Eos % (Auto) Lymph # [place] # Eos # Seg Neutrophils % Seg Neuts % (Manual) Lymphocytes % (Manual) Eosinophils % (Manual) Seg Neutrophils # Lymphocytes # (Manual) Eosinophils # (Manual) PT INR D-Dimer POC ABG pH POC ABG pCO2 POC ABG pO2 ABG pO2 ABG HCO3 ABG Base Excess ABG Hemoglobin Oxyhemoglobin Sodium Potassium Chloride Carbon Dioxide BUN Creatinine Glucose POC Glucose 134 H 135 H 135 H Calcium Phosphorus Magnesium ALT Alkaline Phosphatase Total Creatine Kinase CK-MB (CK-2) Rel Index Troponin T Albumin LDL Cholesterol Direct PTH Intact Salicylates Acetaminophen Crossmatch 03/06/19 03/06/19 03/06/19 00:16 13:05 18:09 WBC RBC Hgb Hct MCH MCHC RDW Lymph % (Auto) [place] % (Auto) Eos % (Auto) Lymph # [place] # Eos # Seg Neutrophils % Seg Neuts % (Manual) Lymphocytes % (Manual) Eosinophils % (Manual) Seg Neutrophils # Lymphocytes # (Manual) Eosinophils # (Manual) PT INR D-Dimer POC ABG pH POC ABG pCO2 POC ABG pO2 ABG pO2 ABG HCO3 ABG Base Excess ABG Hemoglobin Oxyhemoglobin Sodium Potassium Chloride Carbon Dioxide BUN Creatinine Glucose POC Glucose 117 H 113 H 131 H Calcium Phosphorus Magnesium ALT Alkaline Phosphatase Total Creatine Kinase CK-MB (CK-2) Rel Index Troponin T Albumin LDL Cholesterol Direct PTH Intact Salicylates Acetaminophen Crossmatch 03/07/19 03/08/19 03/08/19 05:25 05:33 16:00 WBC RBC 2.44 L Hgb 6.6 L Hct 20.8 L MCH 27 L MCHC RDW 19.2 H Lymph % (Auto) [place] % (Auto) Eos % (Auto) 8.6 H Lymph # 0.8 L [place] # Eos # 0.5 H Seg Neutrophils % 70.7 H Seg Neuts % (Manual) Lymphocytes % (Manual) Eosinophils % (Manual) Seg Neutrophils # Lymphocytes # (Manual) Eosinophils # (Manual) PT INR D-Dimer POC ABG pH POC ABG pCO2 POC ABG pO2 ABG pO2 ABG HCO3 ABG Base Excess ABG Hemoglobin Oxyhemoglobin Sodium Potassium Chloride Carbon Dioxide BUN Creatinine Glucose POC Glucose 106 H 108 H Calcium Phosphorus Magnesium ALT Alkaline Phosphatase Total Creatine Kinase CK-MB (CK-2) Rel Index Troponin T Albumin LDL Cholesterol Direct PTH Intact Salicylates Acetaminophen Crossmatch 03/08/19 03/08/19 03/08/19 16:00 18:38 Unknown WBC RBC Hgb Hct MCH MCHC RDW Lymph % (Auto) [place] % (Auto) Eos % (Auto) Lymph # [place] # Eos # Seg Neutrophils % Seg Neuts % (Manual) Lymphocytes % (Manual) Eosinophils % (Manual) Seg Neutrophils # Lymphocytes # (Manual) Eosinophils # (Manual) PT INR D-Dimer POC ABG pH POC ABG pCO2 POC ABG pO2 ABG pO2 ABG HCO3 ABG Base Excess ABG Hemoglobin Oxyhemoglobin Sodium Potassium 5.4 H D Chloride Carbon Dioxide BUN 47 H Creatinine 2.6 H Glucose POC Glucose 123 H Calcium Phosphorus Magnesium ALT < 5 L Alkaline Phosphatase Total Creatine Kinase CK-MB (CK-2) Rel Index Troponin T Albumin 2.2 L LDL Cholesterol Direct PTH Intact Salicylates Acetaminophen Crossmatch See Detail 03/09/19 03/09/19 03/09/19 10:48 12:28 13:53 WBC RBC 2.85 L Hgb 7.7 L Hct 24.2 L MCH 27 L MCHC RDW 18.7 H Lymph % (Auto) [place] % (Auto) Eos % (Auto) Lymph # [place] # Eos # Seg Neutrophils % Seg Neuts % (Manual) Lymphocytes % (Manual) Eosinophils % (Manual) Seg Neutrophils # Lymphocytes # (Manual) Eosinophils # (Manual) PT INR D-Dimer POC ABG pH POC ABG pCO2 POC ABG pO2 ABG pO2 ABG HCO3 30.5 H ABG Base Excess 5.6 H ABG Hemoglobin 8.1 L Oxyhemoglobin 93.8 L Sodium Potassium Chloride Carbon Dioxide BUN Creatinine Glucose POC Glucose 114 H Calcium Phosphorus Magnesium ALT Alkaline Phosphatase Total Creatine Kinase CK-MB (CK-2) Rel Index Troponin T Albumin LDL Cholesterol Direct PTH Intact Salicylates Acetaminophen Crossmatch 03/09/19 03/09/19 03/10/19 17:58 23:53 12:01 WBC RBC Hgb Hct MCH MCHC RDW Lymph % (Auto) [place] % (Auto) Eos % (Auto) Lymph # [place] # Eos # Seg Neutrophils % Seg Neuts % (Manual) Lymphocytes % (Manual) Eosinophils % (Manual) Seg Neutrophils # Lymphocytes # (Manual) Eosinophils # (Manual) PT INR D-Dimer POC ABG pH POC ABG pCO2 POC ABG pO2 ABG pO2 ABG HCO3 ABG Base Excess ABG Hemoglobin Oxyhemoglobin Sodium Potassium Chloride Carbon Dioxide BUN Creatinine Glucose POC Glucose 108 H 128 H 144 H Calcium Phosphorus Magnesium ALT Alkaline Phosphatase Total Creatine Kinase CK-MB (CK-2) Rel Index Troponin T Albumin LDL Cholesterol Direct PTH Intact Salicylates Acetaminophen Crossmatch 03/10/19 03/11/19 03/11/19 16:50 00:24 05:02 WBC RBC Hgb Hct MCH MCHC RDW Lymph % (Auto) [place] % (Auto) Eos % (Auto) Lymph # [place] # Eos # Seg Neutrophils % Seg Neuts % (Manual) Lymphocytes % (Manual) Eosinophils % (Manual) Seg Neutrophils # Lymphocytes # (Manual) Eosinophils # (Manual) PT INR D-Dimer POC ABG pH POC ABG pCO2 POC ABG pO2 ABG pO2 ABG HCO3 ABG Base Excess ABG Hemoglobin Oxyhemoglobin Sodium Potassium Chloride Carbon Dioxide BUN Creatinine Glucose POC Glucose 147 H 123 H 120 H Calcium Phosphorus Magnesium ALT Alkaline Phosphatase Total Creatine Kinase CK-MB (CK-2) Rel Index Troponin T Albumin LDL Cholesterol Direct PTH Intact Salicylates Acetaminophen Crossmatch 03/11/19 03/11/19 03/11/19 11:56 12:20 18:37 WBC RBC Hgb Hct MCH MCHC RDW Lymph % (Auto) [place] % (Auto) Eos % (Auto) Lymph # [place] # Eos # Seg Neutrophils % Seg Neuts % (Manual) Lymphocytes % (Manual) Eosinophils % (Manual) Seg Neutrophils # Lymphocytes # (Manual) Eosinophils # (Manual) PT INR D-Dimer POC ABG pH POC ABG pCO2 POC ABG pO2 ABG pO2 ABG HCO3 ABG Base Excess ABG Hemoglobin Oxyhemoglobin Sodium Potassium 5.2 H Chloride Carbon Dioxide BUN Creatinine Glucose POC Glucose 123 H 125 H Calcium Phosphorus Magnesium ALT Alkaline Phosphatase Total Creatine Kinase CK-MB (CK-2) Rel Index Troponin T Albumin LDL Cholesterol Direct PTH Intact Salicylates Acetaminophen Crossmatch 03/11/19 03/12/19 03/12/19 22:52 12:04 18:25 WBC RBC Hgb Hct MCH MCHC RDW Lymph % (Auto) [place] % (Auto) Eos % (Auto) Lymph # [place] # Eos # Seg Neutrophils % Seg Neuts % (Manual) Lymphocytes % (Manual) Eosinophils % (Manual) Seg Neutrophils # Lymphocytes # (Manual) Eosinophils # (Manual) PT INR D-Dimer POC ABG pH POC ABG pCO2 POC ABG pO2 ABG pO2 ABG HCO3 ABG Base Excess ABG Hemoglobin Oxyhemoglobin Sodium Potassium Chloride Carbon Dioxide BUN Creatinine Glucose POC Glucose 110 H 106 H 118 H Calcium Phosphorus Magnesium ALT Alkaline Phosphatase Total Creatine Kinase CK-MB (CK-2) Rel Index Troponin T Albumin LDL Cholesterol Direct PTH Intact Salicylates Acetaminophen Crossmatch 03/12/19 03/13/19 03/13/19 23:36 04:38 04:38 WBC RBC 2.95 L Hgb 7.9 L Hct 24.9 L MCH 27 L MCHC RDW 19.9 H Lymph % (Auto) 11.1 L [place] % (Auto) 8.1 H Eos % (Auto) 4.4 H Lymph # 0.9 L [place] # Eos # Seg Neutrophils % 75.4 H Seg Neuts % (Manual) Lymphocytes % (Manual) Eosinophils % (Manual) Seg Neutrophils # Lymphocytes # (Manual) Eosinophils # (Manual) PT INR D-Dimer POC ABG pH POC ABG pCO2 POC ABG pO2 ABG pO2 ABG HCO3 ABG Base Excess ABG Hemoglobin Oxyhemoglobin Sodium 136 L Potassium 5.1 H Chloride 93.8 L Carbon Dioxide BUN 48 H Creatinine 2.7 H Glucose 102 H POC Glucose 115 H Calcium Phosphorus Magnesium ALT < 5 L Alkaline Phosphatase 143 H Total Creatine Kinase CK-MB (CK-2) Rel Index Troponin T Albumin 2.5 L LDL Cholesterol Direct PTH Intact Salicylates Acetaminophen Crossmatch 03/13/19 03/13/19 03/13/19 05:33 13:37 18:03 WBC RBC Hgb Hct MCH MCHC RDW Lymph % (Auto) [place] % (Auto) Eos % (Auto) Lymph # [place] # Eos # Seg Neutrophils % Seg Neuts % (Manual) Lymphocytes % (Manual) Eosinophils % (Manual) Seg Neutrophils # Lymphocytes # (Manual) Eosinophils # (Manual) PT INR D-Dimer POC ABG pH POC ABG pCO2 POC ABG pO2 ABG pO2 ABG HCO3 ABG Base Excess ABG Hemoglobin Oxyhemoglobin Sodium Potassium Chloride Carbon Dioxide BUN Creatinine Glucose POC Glucose 140 H 150 H 158 H Calcium Phosphorus Magnesium ALT Alkaline Phosphatase Total Creatine Kinase CK-MB (CK-2) Rel Index Troponin T Albumin LDL Cholesterol Direct PTH Intact Salicylates Acetaminophen Crossmatch 03/13/19 03/14/19 03/14/19 23:32 05:24 12:20 WBC RBC Hgb Hct MCH MCHC RDW Lymph % (Auto) [place] % (Auto) Eos % (Auto) Lymph # [place] # Eos # Seg Neutrophils % Seg Neuts % (Manual) Lymphocytes % (Manual) Eosinophils % (Manual) Seg Neutrophils # Lymphocytes # (Manual) Eosinophils # (Manual) PT INR D-Dimer POC ABG pH POC ABG pCO2 POC ABG pO2 ABG pO2 ABG HCO3 ABG Base Excess ABG Hemoglobin Oxyhemoglobin Sodium Potassium Chloride Carbon Dioxide BUN Creatinine Glucose POC Glucose 162 H 146 H 127 H Calcium Phosphorus Magnesium ALT Alkaline Phosphatase Total Creatine Kinase CK-MB (CK-2) Rel Index Troponin T Albumin LDL Cholesterol Direct PTH Intact Salicylates Acetaminophen Crossmatch 03/14/19 03/14/19 03/15/19 18:05 23:57 04:38 WBC 12.8 H RBC 3.11 L Hgb 8.1 L Hct 26.5 L MCH 26 L MCHC 31 L RDW 19.7 H Lymph % (Auto) 4.4 L [place] % (Auto) 7.4 H Eos % (Auto) Lymph # 0.6 L [place] # 0.9 H Eos # Seg Neutrophils % 87.3 H Seg Neuts % (Manual) Lymphocytes % (Manual) Eosinophils % (Manual) Seg Neutrophils # 11.2 H Lymphocytes # (Manual) Eosinophils # (Manual) PT INR D-Dimer POC ABG pH POC ABG pCO2 POC ABG pO2 ABG pO2 ABG HCO3 ABG Base Excess ABG Hemoglobin Oxyhemoglobin Sodium Potassium Chloride Carbon Dioxide BUN Creatinine Glucose POC Glucose 142 H 155 H Calcium Phosphorus Magnesium ALT Alkaline Phosphatase Total Creatine Kinase CK-MB (CK-2) Rel Index Troponin T Albumin LDL Cholesterol Direct PTH Intact Salicylates Acetaminophen Crossmatch 03/15/19 03/15/19 03/15/19 04:38 05:31 11:32 WBC RBC Hgb Hct MCH MCHC RDW Lymph % (Auto) [place] % (Auto) Eos % (Auto) Lymph # [place] # Eos # Seg Neutrophils % Seg Neuts % (Manual) Lymphocytes % (Manual) Eosinophils % (Manual) Seg Neutrophils # Lymphocytes # (Manual) Eosinophils # (Manual) PT INR D-Dimer POC ABG pH POC ABG pCO2 POC ABG pO2 ABG pO2 ABG HCO3 ABG Base Excess ABG Hemoglobin Oxyhemoglobin Sodium 135 L Potassium Chloride 91.9 L Carbon Dioxide BUN 54 H Creatinine 2.8 H Glucose 128 H POC Glucose 160 H 109 H Calcium 11.1 H Phosphorus Magnesium ALT Alkaline Phosphatase 161 H Total Creatine Kinase CK-MB (CK-2) Rel Index Troponin T Albumin 2.3 L LDL Cholesterol Direct PTH Intact Salicylates Acetaminophen Crossmatch 03/15/19 03/15/19 03/16/19 18:15 23:41 05:40 WBC RBC Hgb Hct MCH MCHC RDW Lymph % (Auto) [place] % (Auto) Eos % (Auto) Lymph # [place] # Eos # Seg Neutrophils % Seg Neuts % (Manual) Lymphocytes % (Manual) Eosinophils % (Manual) Seg Neutrophils # Lymphocytes # (Manual) Eosinophils # (Manual) PT INR D-Dimer POC ABG pH POC ABG pCO2 POC ABG pO2 ABG pO2 ABG HCO3 ABG Base Excess ABG Hemoglobin Oxyhemoglobin Sodium Potassium Chloride Carbon Dioxide BUN Creatinine Glucose POC Glucose 151 H 110 H 163 H Calcium Phosphorus Magnesium ALT Alkaline Phosphatase Total Creatine Kinase CK-MB (CK-2) Rel Index Troponin T Albumin LDL Cholesterol Direct PTH Intact Salicylates Acetaminophen Crossmatch 03/16/19 03/16/19 03/16/19 11:55 17:04 23:58 WBC RBC Hgb Hct MCH MCHC RDW Lymph % (Auto) [place] % (Auto) Eos % (Auto) Lymph # [place] # Eos # Seg Neutrophils % Seg Neuts % (Manual) Lymphocytes % (Manual) Eosinophils % (Manual) Seg Neutrophils # Lymphocytes # (Manual) Eosinophils # (Manual) PT INR D-Dimer POC ABG pH POC ABG pCO2 POC ABG pO2 ABG pO2 ABG HCO3 ABG Base Excess ABG Hemoglobin Oxyhemoglobin Sodium Potassium Chloride Carbon Dioxide BUN Creatinine Glucose POC Glucose 114 H 147 H 192 H Calcium Phosphorus Magnesium ALT Alkaline Phosphatase Total Creatine Kinase CK-MB (CK-2) Rel Index Troponin T Albumin LDL Cholesterol Direct PTH Intact Salicylates Acetaminophen Crossmatch 03/17/19 03/17/19 03/17/19 05:53 11:17 17:01 WBC RBC Hgb Hct MCH MCHC RDW Lymph % (Auto) [place] % (Auto) Eos % (Auto) Lymph # [place] # Eos # Seg Neutrophils % Seg Neuts % (Manual) Lymphocytes % (Manual) Eosinophils % (Manual) Seg Neutrophils # Lymphocytes # (Manual) Eosinophils # (Manual) PT INR D-Dimer POC ABG pH POC ABG pCO2 POC ABG pO2 ABG pO2 ABG HCO3 ABG Base Excess ABG Hemoglobin Oxyhemoglobin Sodium Potassium Chloride Carbon Dioxide BUN Creatinine Glucose POC Glucose 151 H 161 H 152 H Calcium Phosphorus Magnesium ALT Alkaline Phosphatase Total Creatine Kinase CK-MB (CK-2) Rel Index Troponin T Albumin LDL Cholesterol Direct PTH Intact Salicylates Acetaminophen Crossmatch 03/17/19 03/18/19 03/18/19 21:47 04:15 04:44 WBC RBC Hgb Hct MCH MCHC RDW Lymph % (Auto) [place] % (Auto) Eos % (Auto) Lymph # [place] # Eos # Seg Neutrophils % Seg Neuts % (Manual) Lymphocytes % (Manual) Eosinophils % (Manual) Seg Neutrophils # Lymphocytes # (Manual) Eosinophils # (Manual) PT INR D-Dimer POC ABG pH POC ABG pCO2 POC ABG pO2 ABG pO2 102.8 H ABG HCO3 28.3 H ABG Base Excess ABG Hemoglobin 10.4 L Oxyhemoglobin 94.5 L Sodium Potassium Chloride Carbon Dioxide BUN Creatinine Glucose POC Glucose 170 H 150 H Calcium Phosphorus Magnesium ALT Alkaline Phosphatase Total Creatine Kinase CK-MB (CK-2) Rel Index Troponin T Albumin LDL Cholesterol Direct PTH Intact Salicylates Acetaminophen Crossmatch 03/18/19 03/18/19 03/18/19 06:38 12:12 17:47 WBC RBC Hgb Hct MCH MCHC RDW Lymph % (Auto) [place] % (Auto) Eos % (Auto) Lymph # [place] # Eos # Seg Neutrophils % Seg Neuts % (Manual) Lymphocytes % (Manual) Eosinophils % (Manual) Seg Neutrophils # Lymphocytes # (Manual) Eosinophils # (Manual) PT INR D-Dimer POC ABG pH 7.510 H POC ABG pCO2 POC ABG pO2 164 H ABG pO2 ABG HCO3 ABG Base Excess ABG Hemoglobin Oxyhemoglobin Sodium Potassium Chloride Carbon Dioxide BUN Creatinine Glucose POC Glucose 145 H 149 H Calcium Phosphorus Magnesium ALT Alkaline Phosphatase Total Creatine Kinase CK-MB (CK-2) Rel Index Troponin T Albumin LDL Cholesterol Direct PTH Intact Salicylates Acetaminophen Crossmatch 03/18/19 03/19/19 03/19/19 23:25 01:11 04:23 WBC 15.6 H RBC 2.51 L Hgb 6.5 L Hct 21.6 L MCH 26 L MCHC 30 L RDW 19.8 H Lymph % (Auto) 6.0 L [place] % (Auto) Eos % (Auto) Lymph # 0.9 L [place] # 1.0 H Eos # Seg Neutrophils % 85.5 H Seg Neuts % (Manual) Lymphocytes % (Manual) Eosinophils % (Manual) Seg Neutrophils # 13.4 H Lymphocytes # (Manual) Eosinophils # (Manual) PT INR D-Dimer POC ABG pH POC ABG pCO2 POC ABG pO2 ABG pO2 78.3 L ABG HCO3 30.7 H ABG Base Excess 5.8 H ABG Hemoglobin 5.8 L Oxyhemoglobin 94.6 L Sodium Potassium Chloride Carbon Dioxide BUN Creatinine Glucose POC Glucose 190 H Calcium Phosphorus Magnesium ALT Alkaline Phosphatase Total Creatine Kinase CK-MB (CK-2) Rel Index Troponin T Albumin LDL Cholesterol Direct PTH Intact Salicylates Acetaminophen Crossmatch 03/19/19 03/19/19 03/19/19 05:22 05:35 08:54 WBC RBC Hgb Hct MCH MCHC RDW Lymph % (Auto) [place] % (Auto) Eos % (Auto) Lymph # [place] # Eos # Seg Neutrophils % Seg Neuts % (Manual) Lymphocytes % (Manual) Eosinophils % (Manual) Seg Neutrophils # Lymphocytes # (Manual) Eosinophils # (Manual) PT INR D-Dimer POC ABG pH POC ABG pCO2 POC ABG pO2 ABG pO2 ABG HCO3 ABG Base Excess ABG Hemoglobin Oxyhemoglobin Sodium Potassium Chloride Carbon Dioxide BUN Creatinine Glucose POC Glucose 167 H Calcium Phosphorus Magnesium ALT Alkaline Phosphatase Total Creatine Kinase CK-MB (CK-2) Rel Index Troponin T Albumin LDL Cholesterol Direct PTH Intact Salicylates Acetaminophen Crossmatch See Detail See Detail 03/19/19 03/19/19 03/19/19 12:36 17:02 23:25 WBC RBC Hgb Hct MCH MCHC RDW Lymph % (Auto) [place] % (Auto) Eos % (Auto) Lymph # [place] # Eos # Seg Neutrophils % Seg Neuts % (Manual) Lymphocytes % (Manual) Eosinophils % (Manual) Seg Neutrophils # Lymphocytes # (Manual) Eosinophils # (Manual) PT INR D-Dimer POC ABG pH POC ABG pCO2 POC ABG pO2 ABG pO2 ABG HCO3 ABG Base Excess ABG Hemoglobin Oxyhemoglobin Sodium Potassium Chloride Carbon Dioxide BUN Creatinine Glucose POC Glucose 167 H 135 H 136 H Calcium Phosphorus Magnesium ALT Alkaline Phosphatase Total Creatine Kinase CK-MB (CK-2) Rel Index Troponin T Albumin LDL Cholesterol Direct PTH Intact Salicylates Acetaminophen Crossmatch 03/20/19 03/20/19 03/20/19 05:38 08:40 08:40 WBC RBC 2.61 L Hgb 7.1 L Hct 22.0 L MCH 27 L MCHC RDW 19.6 H Lymph % (Auto) 8.2 L [place] % (Auto) 8.3 H Eos % (Auto) 5.7 H Lymph # 0.8 L [place] # Eos # 0.5 H Seg Neutrophils % 77.3 H Seg Neuts % (Manual) Lymphocytes % (Manual) Eosinophils % (Manual) Seg Neutrophils # Lymphocytes # (Manual) Eosinophils # (Manual) PT INR D-Dimer POC ABG pH POC ABG pCO2 POC ABG pO2 ABG pO2 ABG HCO3 ABG Base Excess ABG Hemoglobin Oxyhemoglobin Sodium Potassium Chloride 95.9 L Carbon Dioxide BUN 69 H Creatinine 2.8 H Glucose 115 H POC Glucose 134 H Calcium 10.5 H Phosphorus Magnesium ALT Alkaline Phosphatase Total Creatine Kinase CK-MB (CK-2) Rel Index Troponin T Albumin LDL Cholesterol Direct PTH Intact Salicylates Acetaminophen Crossmatch 03/20/19 03/20/19 03/20/19 12:13 18:04 23:49 WBC RBC Hgb Hct MCH MCHC RDW Lymph % (Auto) [place] % (Auto) Eos % (Auto) Lymph # [place] # Eos # Seg Neutrophils % Seg Neuts % (Manual) Lymphocytes % (Manual) Eosinophils % (Manual) Seg Neutrophils # Lymphocytes # (Manual) Eosinophils # (Manual) PT INR D-Dimer POC ABG pH POC ABG pCO2 POC ABG pO2 ABG pO2 ABG HCO3 ABG Base Excess ABG Hemoglobin Oxyhemoglobin Sodium Potassium Chloride Carbon Dioxide BUN Creatinine Glucose POC Glucose 144 H 165 H 172 H Calcium Phosphorus Magnesium ALT Alkaline Phosphatase Total Creatine Kinase CK-MB (CK-2) Rel Index Troponin T Albumin LDL Cholesterol Direct PTH Intact Salicylates Acetaminophen Crossmatch 03/21/19 03/21/19 03/21/19 05:00 06:29 06:30 WBC RBC 2.72 L Hgb 7.4 L Hct 22.9 L MCH 27 L MCHC RDW 19.4 H Lymph % (Auto) [place] % (Auto) Eos % (Auto) Lymph # [place] # Eos # Seg Neutrophils % Seg Neuts % (Manual) 81.0 H Lymphocytes % (Manual) 8.0 L Eosinophils % (Manual) 8.0 H Seg Neutrophils # Lymphocytes # (Manual) 0.7 L Eosinophils # (Manual) 0.7 H PT INR D-Dimer POC ABG pH POC ABG pCO2 POC ABG pO2 ABG pO2 ABG HCO3 ABG Base Excess ABG Hemoglobin Oxyhemoglobin Sodium Potassium Chloride Carbon Dioxide 33 H BUN 43 H Creatinine 1.7 H Glucose 145 H POC Glucose 156 H Calcium Phosphorus Magnesium ALT Alkaline Phosphatase 212 H Total Creatine Kinase CK-MB (CK-2) Rel Index Troponin T Albumin 2.2 L LDL Cholesterol Direct PTH Intact Salicylates Acetaminophen Crossmatch 03/21/19 03/21/19 03/22/19 12:02 18:07 00:21 WBC RBC Hgb Hct MCH MCHC RDW Lymph % (Auto) [place] % (Auto) Eos % (Auto) Lymph # [place] # Eos # Seg Neutrophils % Seg Neuts % (Manual) Lymphocytes % (Manual) Eosinophils % (Manual) Seg Neutrophils # Lymphocytes # (Manual) Eosinophils # (Manual) PT INR D-Dimer POC ABG pH POC ABG pCO2 POC ABG pO2 ABG pO2 ABG HCO3 ABG Base Excess ABG Hemoglobin Oxyhemoglobin Sodium Potassium Chloride Carbon Dioxide BUN Creatinine Glucose POC Glucose 163 H 144 H 153 H Calcium Phosphorus Magnesium ALT Alkaline Phosphatase Total Creatine Kinase CK-MB (CK-2) Rel Index Troponin T Albumin LDL Cholesterol Direct PTH Intact Salicylates Acetaminophen Crossmatch 03/22/19 03/22/19 03/22/19 05:23 05:23 05:31 WBC RBC 2.58 L Hgb 7.1 L Hct 21.8 L MCH 27 L MCHC RDW 19.2 H Lymph % (Auto) [place] % (Auto) Eos % (Auto) Lymph # [place] # Eos # Seg Neutrophils % Seg Neuts % (Manual) Lymphocytes % (Manual) Eosinophils % (Manual) Seg Neutrophils # Lymphocytes # (Manual) Eosinophils # (Manual) PT INR D-Dimer POC ABG pH POC ABG pCO2 POC ABG pO2 ABG pO2 ABG HCO3 ABG Base Excess ABG Hemoglobin Oxyhemoglobin Sodium 147 H Potassium Chloride Carbon Dioxide BUN 68 H Creatinine 2.5 H Glucose POC Glucose 116 H Calcium 10.3 H Phosphorus Magnesium ALT Alkaline Phosphatase Total Creatine Kinase CK-MB (CK-2) Rel Index Troponin T Albumin LDL Cholesterol Direct PTH Intact Salicylates Acetaminophen Crossmatch 03/22/19 03/22/19 03/22/19 08:48 12:37 17:35 WBC RBC Hgb Hct MCH MCHC RDW Lymph % (Auto) [place] % (Auto) Eos % (Auto) Lymph # [place] # Eos # Seg Neutrophils % Seg Neuts % (Manual) Lymphocytes % (Manual) Eosinophils % (Manual) Seg Neutrophils # Lymphocytes # (Manual) Eosinophils # (Manual) PT INR D-Dimer POC ABG pH POC ABG pCO2 POC ABG pO2 ABG pO2 ABG HCO3 ABG Base Excess ABG Hemoglobin Oxyhemoglobin Sodium Potassium Chloride Carbon Dioxide BUN Creatinine Glucose POC Glucose 143 H 155 H Calcium Phosphorus Magnesium ALT Alkaline Phosphatase Total Creatine Kinase CK-MB (CK-2) Rel Index Troponin T Albumin LDL Cholesterol Direct PTH Intact Salicylates Acetaminophen Crossmatch See Detail 03/23/19 03/23/19 03/23/19 00:07 04:00 04:00 WBC 11.2 H RBC 2.32 L Hgb 6.4 L Hct 19.7 L* MCH MCHC RDW 19.4 H Lymph % (Auto) [place] % (Auto) Eos % (Auto) Lymph # [place] # Eos # Seg Neutrophils % Seg Neuts % (Manual) Lymphocytes % (Manual) Eosinophils % (Manual) Seg Neutrophils # Lymphocytes # (Manual) Eosinophils # (Manual) PT INR D-Dimer POC ABG pH POC ABG pCO2 POC ABG pO2 ABG pO2 ABG HCO3 ABG Base Excess ABG Hemoglobin Oxyhemoglobin Sodium 147 H Potassium 5.2 H Chloride Carbon Dioxide BUN 86 H Creatinine 3.2 H Glucose 128 H POC Glucose 135 H Calcium 10.3 H Phosphorus Magnesium ALT Alkaline Phosphatase Total Creatine Kinase CK-MB (CK-2) Rel Index Troponin T Albumin LDL Cholesterol Direct PTH Intact Salicylates Acetaminophen Crossmatch 03/23/19 03/23/19 03/23/19 05:21 11:36 11:36 WBC RBC Hgb 7.9 L Hct 25.0 L MCH MCHC RDW Lymph % (Auto) [place] % (Auto) Eos % (Auto) Lymph # [place] # Eos # Seg Neutrophils % Seg Neuts % (Manual) Lymphocytes % (Manual) Eosinophils % (Manual) Seg Neutrophils # Lymphocytes # (Manual) Eosinophils # (Manual) PT INR D-Dimer POC ABG pH POC ABG pCO2 POC ABG pO2 ABG pO2 ABG HCO3 ABG Base Excess ABG Hemoglobin Oxyhemoglobin Sodium Potassium Chloride Carbon Dioxide BUN Creatinine Glucose POC Glucose 132 H 147 H Calcium Phosphorus Magnesium ALT Alkaline Phosphatase Total Creatine Kinase CK-MB (CK-2) Rel Index Troponin T Albumin LDL Cholesterol Direct PTH Intact Salicylates Acetaminophen Crossmatch 03/23/19 03/24/19 03/24/19 17:31 01:22 04:20 WBC 12.2 H RBC 3.05 L Hgb 8.3 L Hct 25.9 L MCH 27 L MCHC RDW 18.7 H Lymph % (Auto) [place] % (Auto) Eos % (Auto) Lymph # [place] # Eos # Seg Neutrophils % Seg Neuts % (Manual) Lymphocytes % (Manual) Eosinophils % (Manual) Seg Neutrophils # Lymphocytes # (Manual) Eosinophils # (Manual) PT INR D-Dimer POC ABG pH POC ABG pCO2 POC ABG pO2 ABG pO2 ABG HCO3 ABG Base Excess ABG Hemoglobin Oxyhemoglobin Sodium Potassium Chloride Carbon Dioxide BUN Creatinine Glucose POC Glucose 182 H 113 H Calcium Phosphorus Magnesium ALT Alkaline Phosphatase Total Creatine Kinase CK-MB (CK-2) Rel Index Troponin T Albumin LDL Cholesterol Direct PTH Intact Salicylates Acetaminophen Crossmatch 03/24/19 03/24/19 03/24/19 04:20 11:59 18:14 WBC RBC Hgb Hct MCH MCHC RDW Lymph % (Auto) [place] % (Auto) Eos % (Auto) Lymph # [place] # Eos # Seg Neutrophils % Seg Neuts % (Manual) Lymphocytes % (Manual) Eosinophils % (Manual) Seg Neutrophils # Lymphocytes # (Manual) Eosinophils # (Manual) PT INR D-Dimer POC ABG pH POC ABG pCO2 POC ABG pO2 ABG pO2 ABG HCO3 ABG Base Excess ABG Hemoglobin Oxyhemoglobin Sodium Potassium Chloride 94.8 L Carbon Dioxide 32 H BUN 53 H Creatinine 2.3 H Glucose POC Glucose 163 H 134 H Calcium Phosphorus Magnesium ALT Alkaline Phosphatase Total Creatine Kinase CK-MB (CK-2) Rel Index Troponin T Albumin LDL Cholesterol Direct PTH Intact Salicylates Acetaminophen Crossmatch 03/24/19 03/25/19 03/25/19 23:15 05:52 12:02 WBC RBC Hgb Hct MCH MCHC RDW Lymph % (Auto) [place] % (Auto) Eos % (Auto) Lymph # [place] # Eos # Seg Neutrophils % Seg Neuts % (Manual) Lymphocytes % (Manual) Eosinophils % (Manual) Seg Neutrophils # Lymphocytes # (Manual) Eosinophils # (Manual) PT INR D-Dimer POC ABG pH POC ABG pCO2 POC ABG pO2 ABG pO2 ABG HCO3 ABG Base Excess ABG Hemoglobin Oxyhemoglobin Sodium Potassium Chloride Carbon Dioxide BUN Creatinine Glucose POC Glucose 129 H 123 H 125 H Calcium Phosphorus Magnesium ALT Alkaline Phosphatase Total Creatine Kinase CK-MB (CK-2) Rel Index Troponin T Albumin LDL Cholesterol Direct PTH Intact Salicylates Acetaminophen Crossmatch 03/25/19 03/26/19 03/26/19 17:27 00:30 05:35 WBC RBC 3.01 L Hgb 8.1 L Hct 25.7 L MCH 27 L MCHC RDW 19.2 H Lymph % (Auto) 11.4 L [place] % (Auto) Eos % (Auto) 8.0 H Lymph # 1.0 L [place] # Eos # 0.7 H Seg Neutrophils % 73.9 H Seg Neuts % (Manual) Lymphocytes % (Manual) Eosinophils % (Manual) Seg Neutrophils # Lymphocytes # (Manual) Eosinophils # (Manual) PT INR D-Dimer POC ABG pH POC ABG pCO2 POC ABG pO2 ABG pO2 ABG HCO3 ABG Base Excess ABG Hemoglobin Oxyhemoglobin Sodium Potassium Chloride Carbon Dioxide BUN Creatinine Glucose POC Glucose 130 H 129 H Calcium Phosphorus Magnesium ALT Alkaline Phosphatase Total Creatine Kinase CK-MB (CK-2) Rel Index Troponin T Albumin LDL Cholesterol Direct PTH Intact Salicylates Acetaminophen Crossmatch 03/26/19 03/26/19 03/26/19 05:35 05:45 12:16 WBC RBC Hgb Hct MCH MCHC RDW Lymph % (Auto) [place] % (Auto) Eos % (Auto) Lymph # [place] # Eos # Seg Neutrophils % Seg Neuts % (Manual) Lymphocytes % (Manual) Eosinophils % (Manual) Seg Neutrophils # Lymphocytes # (Manual) Eosinophils # (Manual) PT INR D-Dimer POC ABG pH POC ABG pCO2 POC ABG pO2 ABG pO2 ABG HCO3 ABG Base Excess ABG Hemoglobin Oxyhemoglobin Sodium Potassium Chloride 94.9 L Carbon Dioxide 31 H BUN 44 H Creatinine 2.0 H Glucose POC Glucose 118 H 107 H Calcium Phosphorus Magnesium ALT Alkaline Phosphatase Total Creatine Kinase CK-MB (CK-2) Rel Index Troponin T Albumin LDL Cholesterol Direct PTH Intact Salicylates Acetaminophen Crossmatch 03/26/19 03/27/19 03/27/19 17:56 00:36 05:37 WBC RBC Hgb Hct MCH MCHC RDW Lymph % (Auto) [place] % (Auto) Eos % (Auto) Lymph # [place] # Eos # Seg Neutrophils % Seg Neuts % (Manual) Lymphocytes % (Manual) Eosinophils % (Manual) Seg Neutrophils # Lymphocytes # (Manual) Eosinophils # (Manual) PT INR D-Dimer POC ABG pH POC ABG pCO2 POC ABG pO2 ABG pO2 ABG HCO3 ABG Base Excess ABG Hemoglobin Oxyhemoglobin Sodium Potassium Chloride Carbon Dioxide BUN Creatinine Glucose POC Glucose 107 H 110 H 122 H Calcium Phosphorus Magnesium ALT Alkaline Phosphatase Total Creatine Kinase CK-MB (CK-2) Rel Index Troponin T Albumin LDL Cholesterol Direct PTH Intact Salicylates Acetaminophen Crossmatch 03/27/19 03/27/19 03/28/19 11:22 18:00 05:17 WBC RBC Hgb Hct MCH MCHC RDW Lymph % (Auto) [place] % (Auto) Eos % (Auto) Lymph # [place] # Eos # Seg Neutrophils % Seg Neuts % (Manual) Lymphocytes % (Manual) Eosinophils % (Manual) Seg Neutrophils # Lymphocytes # (Manual) Eosinophils # (Manual) PT INR D-Dimer POC ABG pH POC ABG pCO2 POC ABG pO2 ABG pO2 ABG HCO3 ABG Base Excess ABG Hemoglobin Oxyhemoglobin Sodium Potassium Chloride Carbon Dioxide BUN Creatinine Glucose POC Glucose 120 H 111 H 107 H Calcium Phosphorus Magnesium ALT Alkaline Phosphatase Total Creatine Kinase CK-MB (CK-2) Rel Index Troponin T Albumin LDL Cholesterol Direct PTH Intact Salicylates Acetaminophen Crossmatch 03/28/19 03/28/19 03/29/19 12:27 18:08 05:47 WBC RBC Hgb Hct MCH MCHC RDW Lymph % (Auto) [place] % (Auto) Eos % (Auto) Lymph # [place] # Eos # Seg Neutrophils % Seg Neuts % (Manual) Lymphocytes % (Manual) Eosinophils % (Manual) Seg Neutrophils # Lymphocytes # (Manual) Eosinophils # (Manual) PT INR D-Dimer POC ABG pH POC ABG pCO2 POC ABG pO2 ABG pO2 ABG HCO3 ABG Base Excess ABG Hemoglobin Oxyhemoglobin Sodium Potassium Chloride Carbon Dioxide BUN Creatinine Glucose POC Glucose 114 H 121 H 112 H Calcium Phosphorus Magnesium ALT Alkaline Phosphatase Total Creatine Kinase CK-MB (CK-2) Rel Index Troponin T Albumin LDL Cholesterol Direct PTH Intact Salicylates Acetaminophen Crossmatch 03/29/19 03/29/19 03/30/19 12:14 18:08 00:31 WBC RBC Hgb Hct MCH MCHC RDW Lymph % (Auto) [place] % (Auto) Eos % (Auto) Lymph # [place] # Eos # Seg Neutrophils % Seg Neuts % (Manual) Lymphocytes % (Manual) Eosinophils % (Manual) Seg Neutrophils # Lymphocytes # (Manual) Eosinophils # (Manual) PT INR D-Dimer POC ABG pH POC ABG pCO2 POC ABG pO2 ABG pO2 ABG HCO3 ABG Base Excess ABG Hemoglobin Oxyhemoglobin Sodium Potassium Chloride Carbon Dioxide BUN Creatinine Glucose POC Glucose 117 H 140 H 114 H Calcium Phosphorus Magnesium ALT Alkaline Phosphatase Total Creatine Kinase CK-MB (CK-2) Rel Index Troponin T Albumin LDL Cholesterol Direct PTH Intact Salicylates Acetaminophen Crossmatch 03/30/19 03/30/19 03/30/19 10:13 10:13 23:53 WBC RBC 2.81 L Hgb 7.7 L Hct 24.3 L MCH 27 L MCHC RDW 19.0 H Lymph % (Auto) 12.2 L [place] % (Auto) Eos % (Auto) 7.9 H Lymph # 1.0 L [place] # Eos # 0.6 H Seg Neutrophils % 72.3 H Seg Neuts % (Manual) Lymphocytes % (Manual) Eosinophils % (Manual) Seg Neutrophils # Lymphocytes # (Manual) Eosinophils # (Manual) PT INR D-Dimer POC ABG pH POC ABG pCO2 POC ABG pO2 ABG pO2 ABG HCO3 ABG Base Excess ABG Hemoglobin Oxyhemoglobin Sodium Potassium 5.1 H Chloride 96.5 L Carbon Dioxide BUN 73 H Creatinine 3.9 H D Glucose POC Glucose 114 H Calcium 10.3 H Phosphorus 6.30 H Magnesium 2.70 H ALT Alkaline Phosphatase 185 H Total Creatine Kinase CK-MB (CK-2) Rel Index Troponin T Albumin 2.6 L LDL Cholesterol Direct PTH Intact Salicylates Acetaminophen Crossmatch 03/31/19 03/31/19 03/31/19 05:45 10:26 10:26 WBC RBC 3.01 L Hgb 8.2 L Hct 26.4 L MCH 27 L MCHC 31 L RDW 20.3 H Lymph % (Auto) 13.3 L [place] % (Auto) Eos % (Auto) 7.2 H Lymph # 1.1 L [place] # Eos # 0.6 H Seg Neutrophils % 72.1 H Seg Neuts % (Manual) Lymphocytes % (Manual) Eosinophils % (Manual) Seg Neutrophils # Lymphocytes # (Manual) Eosinophils # (Manual) PT INR D-Dimer POC ABG pH POC ABG pCO2 POC ABG pO2 ABG pO2 ABG HCO3 ABG Base Excess ABG Hemoglobin Oxyhemoglobin Sodium Potassium Chloride 96.9 L Carbon Dioxide 33 H BUN 37 H Creatinine 2.4 H Glucose POC Glucose 108 H Calcium 10.3 H Phosphorus Magnesium ALT Alkaline Phosphatase Total Creatine Kinase CK-MB (CK-2) Rel Index Troponin T Albumin LDL Cholesterol Direct PTH Intact Salicylates Acetaminophen Crossmatch 09/10/19 09/11/19 09/11/19 12:38 05:48 12:06 WBC RBC Hgb Hct MCH MCHC RDW Lymph % (Auto) [place] % (Auto) Eos % (Auto) Lymph # [place] # Eos # Seg Neutrophils % Seg Neuts % (Manual) Lymphocytes % (Manual) Eosinophils % (Manual) Seg Neutrophils # Lymphocytes # (Manual) Eosinophils # (Manual) PT INR D-Dimer POC ABG pH POC ABG pCO2 POC ABG pO2 ABG pO2 ABG HCO3 ABG Base Excess ABG Hemoglobin Oxyhemoglobin Sodium Potassium Chloride Carbon Dioxide BUN Creatinine Glucose POC Glucose 108 H 114 H 111 H Calcium Phosphorus Magnesium ALT Alkaline Phosphatase Total Creatine Kinase CK-MB (CK-2) Rel Index Troponin T Albumin LDL Cholesterol Direct PTH Intact Salicylates Acetaminophen Crossmatch 04/01/19 04/02/19 04/04/19 18:24 00:36 23:55 WBC RBC Hgb Hct MCH MCHC RDW Lymph % (Auto) [place] % (Auto) Eos % (Auto) Lymph # [place] # Eos # Seg Neutrophils % Seg Neuts % (Manual) Lymphocytes % (Manual) Eosinophils % (Manual) Seg Neutrophils # Lymphocytes # (Manual) Eosinophils # (Manual) PT INR D-Dimer POC ABG pH POC ABG pCO2 POC ABG pO2 ABG pO2 ABG HCO3 ABG Base Excess ABG Hemoglobin Oxyhemoglobin Sodium Potassium Chloride Carbon Dioxide BUN Creatinine Glucose POC Glucose 113 H 117 H 109 H Calcium Phosphorus Magnesium ALT Alkaline Phosphatase Total Creatine Kinase CK-MB (CK-2) Rel Index Troponin T Albumin LDL Cholesterol Direct PTH Intact Salicylates Acetaminophen Crossmatch
--- NOTE | 2019-04-05 18:23 | Progress Note ---
Assessment and Plan Patient is 63-year-old -[place] male patient from [facility] with multiple co-morbidities including blindness, CVA, CHF, PPM/ICD, loop recorder since 2012 that is MRI compatible, IDDM type 2, sepsis left foot ulcer, afib, ESRD with complications on HD TTS, hypertension, AOCD and GERD who presented to the ED with hypotensive after intubation in the emergency room. diagnosed with fluid overload, pleural effusion. Patient has had recurrent admission in the hospital for similar reason and was recently discharged from the hospital following treatment of Severe Sepsis due to Necrotizing Unstagable sacral decubitus ulcer with ostemomylitis, has received multiple courses of broad spectrum abx. Acute hypoxic respiratory failure, status post intubation and ventilatory support, now off vent, on T-piece - Acute respiratory failure on mechanical ventilator >96 hrs Extubated ; history of tracheostomy on T piece With Current management , nebulizers, Currently on trach/peg placed on 03/03. cont oxygen supplement, improving, on t piece, nebulizers, pulmonary critical following - Acute on chronic systolic CHF/ Acute pulmonary edema, HD per schedule - Dilated CMP, EF 35-40% Continue diuresis, supportive care - Acute metabolic encephalopathy, resolved, has baseline Dementia. -ESRD on hemodialysis per schedule nephrology following -Bilateral pneumonia with some small pleural effusions Continue with IV antibiotics improved with HD -Permanent atrial fibrillation and flutter and hypercoaguable state Not on anticoagulation because of anemia thrombocytopenia rate control meds optimized -Diabetes mellitus type 2 Accu-Chek sliding scale coverage Insulin as needed -Schizophrenia:stable -Legally blind, supportive care -hypertension, Monitor BP,'s adjust medications as needed -Hypokalemia; corrected -Pulmonary hypertension; continue current management -Dysphagia s/p PEG tube; PEG tubes per protocol -Sacral decub ulcer; Wound care --Severe malnutrition /hypoalbuminemia with FTT: 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, private branch exchange repairer following PEG placed on 01/02/19 --Multiple decubiti, different stages , s/ p colostomy Left 5th finger, stage 4 pressure ulcer Left heel, deep tissue injury Sacrum, stage 4 pressure ulcer POA Continue wound care --History of sacral osteomyelitis and LE ulcers Completed Antibiotics, contact isolation for ESBL Klebsiella pneumonia on wound culture 01/02/19 --Anemia of chronic disease s/p 1 unit of prbc , stable --RUL atelectasis, probably mucous plugging --DVT prophylaxis; Lovenox - COD status; DNR --Very poor prognosis Dispo; Awaiting SNF placement , difficult to place ,unable to find any NH to take patient. inpatient hospice was recommended, but family is not agreeable at this time. Subjective Date of service: 04/05/19 Principal diagnosis: Respiratory failure, acute on chronic systolic HF, ESRD Interval history: Patient seen and examined A appointment. Unresponsive. Discussed withstaff. No fever. No overnight events reported to me Objective - Exam Narrative Exam: Constitutional: Unresponsive. In no distress Head: Normocephalic atraumatic Eyes: Pupils are equal round and reactive to light Nose: No enlarged turbinates, no septal deviation. Mouth: Moist mucous membranes. Neck: Supple no thyromegaly. No bruit. No JVD Heart: Regular rate and rhythm, S1-S2 normal. No rubs murmurs or gallop Lungs: Clear to auscultation bilaterally. no rales or rhonchi Abdomen: Soft, nontender. Bowel sound are present. Extremities: No edema, no cyanosis, no clubbing. Neuro: Unresponsive Skin: No rashes or hyperpigmented spots Musculoskeletal system: No joint pain or swelling Hematological: No petechia or subcutanous hemorrhages. Immunological: No multiple septic spots on the skin Lymphatic: No generalized lymphadenopathy Psychiatry: Unresponsive - Constitutional Vitals: Vital Signs - 12hr 04/05/19 04/05/19 04/05/19 07:44 09:44 10:00 Temperature 97.9 F Pulse Rate Pulse Rate [ 82 Anterior Bilateral Throughout] Respiratory 18 20 Rate Respiratory 20 Rate [Anterior Bilateral Throughout] Blood Pressure 139/63 Blood Pressure [Right] O2 Sat by Pulse 98 Oximetry 04/05/19 04/05/19 04/05/19 11:57 15:15 16:00 Temperature 98.6 F Pulse Rate 85 86 Pulse Rate [ 88 Anterior Bilateral Throughout] Respiratory 18 Rate Respiratory 20 Rate [Anterior Bilateral Throughout] Blood Pressure Blood Pressure 136/68 [Right] O2 Sat by Pulse 90 Oximetry 04/05/19 16:57 Temperature 98.3 F Pulse Rate Pulse Rate [ Anterior Bilateral Throughout] Respiratory 18 Rate Respiratory Rate [Anterior Bilateral Throughout] Blood Pressure 132/63 Blood Pressure [Right] O2 Sat by Pulse Oximetry - Labs CBC & Chem 7: 03/31/19 10:26 03/31/19 10:26 Labs: Abnormal lab results 04/04/19 Range/Units 23:55 POC Glucose 109 H (70-105)
[2019-04-06] MEDS: INSULIN REGULAR, HUMAN 100 UNITS/1 ML SUB-Q SCH ×4 (05:27→18:00)
[2019-04-06] MEDS: SCOPOLAMINE TRANSDERMAL PATCH 72 HR TD SCH (05:37)
[2019-04-06] MEDS ORDERED: ALBUTEROL 2.5 MG/3 ML NEBU IH ONE ×2 (05:58→06:06)
--- NOTE | 2019-04-06 08:35 | Progress Note ---
Assessment and Plan - Patient Problems (1) Pulmonary hypertension Current Visit: Yes Status: Acute (2) Dilated cardiomyopathy Current Visit: Yes Status: Acute (3) Encephalopathy Current Visit: Yes Status: Acute (4) ESRD (end stage renal disease) on dialysis Current Visit: Yes Status: Chronic (5) Acute HFrEF (heart failure with reduced ejection fraction) Current Visit: No Status: Acute (6) Altered mental status Current Visit: No Status: Acute Qualifiers: Altered mental status type: unspecified Qualified Code(s): R41.82 - Altered mental status, unspecified (7) Apneic episode Current Visit: No Status: Acute (8) Diabetes mellitus, insulin dependent (IDDM), uncontrolled Current Visit: No Status: Acute (9) Elevated lactic acid level Current Visit: No Status: Acute (10) Pneumothorax Current Visit: Yes Status: Suspected Subjective Principal diagnosis: Respiratory failure, acute on chronic systolic HF, ESRD Interval history: unchanged Objective Vital Signs - 12hr 04/05/19 04/05/19 04/05/19 20:44 20:45 21:03 Temperature Pulse Rate 75 Pulse Rate [ 83 Anterior Bilateral Throughout] Respiratory Rate Respiratory 18 Rate [Anterior Bilateral Throughout] Blood Pressure O2 Sat by Pulse 98 Oximetry O2 Sat by Pulse Oximetry [ Assessment] 04/06/19 04/06/19 04/06/19 00:00 00:20 04:29 Temperature 97.8 F 98.3 F Pulse Rate 80 77 Pulse Rate [ Anterior Bilateral Throughout] Respiratory 18 18 Rate Respiratory Rate [Anterior Bilateral Throughout] Blood Pressure 124/63 127/63 O2 Sat by Pulse 98 100 Oximetry O2 Sat by Pulse 98 Oximetry [ Assessment] 04/06/19 07:48 Temperature 98.2 F Pulse Rate 93 H Pulse Rate [ Anterior Bilateral Throughout] Respiratory 18 Rate Respiratory Rate [Anterior Bilateral Throughout] Blood Pressure 124/65 O2 Sat by Pulse 96 Oximetry O2 Sat by Pulse Oximetry [ Assessment] Constitutional: no acute distress, alert Eyes: non-icteric ENT: oropharynx moist Neck: supple Effort: normal Ascultation: Bilateral: diminished breath sounds, other (coarse BS bilaterally) Percussion: Bilateral: not dull Cardiovascular: other (tachy, RR; no mrg) Gastrointestinal: normoactive bowel sounds, soft, non-tender, non-distended, other (ostomy in place, brown stool) Extremities: no cyanosis, no edema, pink and warm Neurologic: other (mild weakness LUE, o/w nonfocal) Psychiatric: other (unable to assess) CBC and BMP: 03/31/19 10:26 03/31/19 10:26 ABG, PT/INR, D-dimer: ABG POC ABG pH 7.510 (7.35-7.45) H 03/18/19 06:38 ABG pH 7.424 pH Units (7.350-7.450) 03/19/19 04:23 POC ABG pCO2 38.9 (35-45) 03/18/19 06:38 ABG pCO2 48.0 mm Hg 03/19/19 04:23 POC ABG pO2 164 (80-105) H 03/18/19 06:38 ABG pO2 78.3 mm Hg (80.0-90.0) L 03/19/19 04:23 POC ABG HCO3 31.0 (22-26 mml/L) 03/18/19 06:38 POC ABG Total CO2 32 (23-27mmol/L) 03/18/19 06:38 POC ABG O2 Sat 100 03/18/19 06:38 ABG O2 Saturation 97.0 % (95.0-99.0) 03/19/19 04:23 PT/INR, D-dimer PT 16.3 Sec. (12.2-14.9) H 03/01/19 09:39 INR 1.35 (0.87-1.13) H 03/01/19 09:39 2987.82 ng/mlDDU (0-234) H 02/22/19 05:54 Abnormal lab findings: Abnormal Labs 02/21/19 02/21/19 02/21/19 18:30 18:30 18:30 WBC RBC 3.26 L Hgb 8.8 L Hct 29.0 L MCH 27 L MCHC 30 L RDW 19.1 H Lymph % (Auto) 6.1 L [place] % (Auto) Eos % (Auto) Lymph # 0.4 L [place] # Eos # Seg Neutrophils % 86.2 H Seg Neuts % (Manual) Lymphocytes % (Manual) Eosinophils % (Manual) Seg Neutrophils # Lymphocytes # (Manual) Eosinophils # (Manual) PT INR D-Dimer POC ABG pH POC ABG pCO2 POC ABG pO2 ABG pO2 ABG HCO3 ABG Base Excess ABG Hemoglobin Oxyhemoglobin Sodium 133 L Potassium 3.3 L Chloride 93.1 L Carbon Dioxide 33 H BUN Creatinine Glucose 161 H POC Glucose Calcium Phosphorus Magnesium ALT Alkaline Phosphatase 136 H Total Creatine Kinase 37 L CK-MB (CK-2) Rel Index Troponin T 0.192 H* Albumin 2.4 L LDL Cholesterol Direct 36 L PTH Intact Salicylates Acetaminophen Crossmatch 02/21/19 02/21/19 02/21/19 18:42 20:04 20:04 WBC RBC Hgb Hct MCH MCHC RDW Lymph % (Auto) [place] % (Auto) Eos % (Auto) Lymph # [place] # Eos # Seg Neutrophils % Seg Neuts % (Manual) Lymphocytes % (Manual) Eosinophils % (Manual) Seg Neutrophils # Lymphocytes # (Manual) Eosinophils # (Manual) PT INR D-Dimer POC ABG pH POC ABG pCO2 56.7 H POC ABG pO2 291 H ABG pO2 ABG HCO3 ABG Base Excess ABG Hemoglobin Oxyhemoglobin Sodium Potassium Chloride Carbon Dioxide BUN Creatinine Glucose POC Glucose Calcium Phosphorus Magnesium ALT Alkaline Phosphatase Total Creatine Kinase CK-MB (CK-2) Rel Index Troponin T Albumin LDL Cholesterol Direct PTH Intact Salicylates < 0.3 L Acetaminophen < 5.0 L Crossmatch 02/21/19 02/22/19 02/22/19 22:35 03:42 03:42 WBC RBC 3.20 L Hgb 8.8 L Hct 27.6 L MCH MCHC RDW 18.9 H Lymph % (Auto) 7.4 L [place] % (Auto) Eos % (Auto) Lymph # 0.7 L [place] # Eos # Seg Neutrophils % 84.7 H Seg Neuts % (Manual) Lymphocytes % (Manual) Eosinophils % (Manual) Seg Neutrophils # Lymphocytes # (Manual) Eosinophils # (Manual) PT INR D-Dimer POC ABG pH POC ABG pCO2 POC ABG pO2 ABG pO2 ABG HCO3 ABG Base Excess ABG Hemoglobin Oxyhemoglobin Sodium 134 L Potassium 2.6 L* D Chloride Carbon Dioxide BUN Creatinine Glucose POC Glucose Calcium Phosphorus Magnesium ALT Alkaline Phosphatase Total Creatine Kinase CK-MB (CK-2) Rel Index 5.2 H Troponin T 0.202 H* Albumin LDL Cholesterol Direct PTH Intact Salicylates Acetaminophen Crossmatch 02/22/19 02/22/19 02/22/19 03:42 05:54 09:04 WBC RBC Hgb Hct MCH MCHC RDW Lymph % (Auto) [place] % (Auto) Eos % (Auto) Lymph # [place] # Eos # Seg Neutrophils % Seg Neuts % (Manual) Lymphocytes % (Manual) Eosinophils % (Manual) Seg Neutrophils # Lymphocytes # (Manual) Eosinophils # (Manual) PT INR D-Dimer 2987.82 H POC ABG pH 7.451 H POC ABG pCO2 POC ABG pO2 ABG pO2 ABG HCO3 ABG Base Excess ABG Hemoglobin Oxyhemoglobin Sodium Potassium Chloride Carbon Dioxide BUN Creatinine Glucose POC Glucose Calcium Phosphorus Magnesium ALT Alkaline Phosphatase Total Creatine Kinase CK-MB (CK-2) Rel Index 5.7 H Troponin T 0.193 H* Albumin LDL Cholesterol Direct PTH Intact Salicylates Acetaminophen Crossmatch 02/22/19 02/22/19 02/23/19 10:36 23:56 00:52 WBC RBC Hgb Hct MCH MCHC RDW Lymph % (Auto) [place] % (Auto) Eos % (Auto) Lymph # [place] # Eos # Seg Neutrophils % Seg Neuts % (Manual) Lymphocytes % (Manual) Eosinophils % (Manual) Seg Neutrophils # Lymphocytes # (Manual) Eosinophils # (Manual) PT INR D-Dimer POC ABG pH POC ABG pCO2 POC ABG pO2 ABG pO2 ABG HCO3 ABG Base Excess ABG Hemoglobin Oxyhemoglobin Sodium Potassium 3.1 L Chloride Carbon Dioxide BUN Creatinine Glucose POC Glucose 58 L 111 H Calcium Phosphorus Magnesium ALT Alkaline Phosphatase Total Creatine Kinase CK-MB (CK-2) Rel Index Troponin T Albumin LDL Cholesterol Direct PTH Intact Salicylates Acetaminophen Crossmatch 02/23/19 02/23/19 02/23/19 05:00 06:35 14:26 WBC RBC Hgb Hct MCH MCHC RDW Lymph % (Auto) [place] % (Auto) Eos % (Auto) Lymph # [place] # Eos # Seg Neutrophils % Seg Neuts % (Manual) Lymphocytes % (Manual) Eosinophils % (Manual) Seg Neutrophils # Lymphocytes # (Manual) Eosinophils # (Manual) PT INR D-Dimer POC ABG pH POC ABG pCO2 POC ABG pO2 ABG pO2 ABG HCO3 ABG Base Excess ABG Hemoglobin Oxyhemoglobin Sodium 135 L Potassium 3.1 L Chloride Carbon Dioxide BUN 21 H Creatinine 2.0 H Glucose 57 L POC Glucose 64 L 62 L Calcium Phosphorus Magnesium ALT Alkaline Phosphatase Total Creatine Kinase CK-MB (CK-2) Rel Index Troponin T Albumin LDL Cholesterol Direct PTH Intact Salicylates Acetaminophen Crossmatch 02/24/19 02/24/19 02/24/19 02:11 04:12 04:55 WBC RBC 2.84 L Hgb 7.8 L Hct 24.5 L MCH MCHC RDW 19.5 H Lymph % (Auto) [place] % (Auto) Eos % (Auto) Lymph # [place] # Eos # Seg Neutrophils % Seg Neuts % (Manual) Lymphocytes % (Manual) Eosinophils % (Manual) Seg Neutrophils # Lymphocytes # (Manual) Eosinophils # (Manual) PT INR D-Dimer POC ABG pH 7.511 H POC ABG pCO2 33.9 L POC ABG pO2 62 L ABG pO2 ABG HCO3 ABG Base Excess ABG Hemoglobin Oxyhemoglobin Sodium Potassium Chloride Carbon Dioxide BUN Creatinine Glucose POC Glucose 69 L Calcium Phosphorus Magnesium ALT Alkaline Phosphatase Total Creatine Kinase CK-MB (CK-2) Rel Index Troponin T Albumin LDL Cholesterol Direct PTH Intact Salicylates Acetaminophen Crossmatch 02/24/19 02/24/19 02/25/19 04:55 05:41 04:45 WBC RBC Hgb Hct MCH MCHC RDW Lymph % (Auto) [place] % (Auto) Eos % (Auto) Lymph # [place] # Eos # Seg Neutrophils % Seg Neuts % (Manual) Lymphocytes % (Manual) Eosinophils % (Manual) Seg Neutrophils # Lymphocytes # (Manual) Eosinophils # (Manual) PT INR D-Dimer POC ABG pH 7.466 H POC ABG pCO2 POC ABG pO2 75 L ABG pO2 ABG HCO3 ABG Base Excess ABG Hemoglobin Oxyhemoglobin Sodium Potassium Chloride Carbon Dioxide BUN Creatinine 1.8 H Glucose 73 L POC Glucose 127 H Calcium Phosphorus Magnesium ALT Alkaline Phosphatase Total Creatine Kinase CK-MB (CK-2) Rel Index Troponin T Albumin LDL Cholesterol Direct PTH Intact Salicylates Acetaminophen Crossmatch 02/25/19 02/25/19 02/26/19 16:34 21:33 03:45 WBC RBC 2.96 L Hgb 8.0 L Hct 25.8 L MCH 27 L MCHC 31 L RDW 20.0 H Lymph % (Auto) [place] % (Auto) Eos % (Auto) Lymph # [place] # Eos # Seg Neutrophils % Seg Neuts % (Manual) Lymphocytes % (Manual) Eosinophils % (Manual) Seg Neutrophils # Lymphocytes # (Manual) Eosinophils # (Manual) PT INR D-Dimer POC ABG pH POC ABG pCO2 POC ABG pO2 ABG pO2 ABG HCO3 ABG Base Excess ABG Hemoglobin Oxyhemoglobin Sodium Potassium Chloride Carbon Dioxide BUN Creatinine Glucose POC Glucose 141 H 106 H Calcium Phosphorus Magnesium ALT Alkaline Phosphatase Total Creatine Kinase CK-MB (CK-2) Rel Index Troponin T Albumin LDL Cholesterol Direct PTH Intact Salicylates Acetaminophen Crossmatch 02/26/19 02/26/19 02/26/19 03:45 04:13 07:53 WBC RBC Hgb Hct MCH MCHC RDW Lymph % (Auto) [place] % (Auto) Eos % (Auto) Lymph # [place] # Eos # Seg Neutrophils % Seg Neuts % (Manual) Lymphocytes % (Manual) Eosinophils % (Manual) Seg Neutrophils # Lymphocytes # (Manual) Eosinophils # (Manual) PT INR D-Dimer POC ABG pH 7.470 H POC ABG pCO2 POC ABG pO2 ABG pO2 ABG HCO3 ABG Base Excess ABG Hemoglobin Oxyhemoglobin Sodium Potassium Chloride Carbon Dioxide BUN Creatinine 1.8 H Glucose POC Glucose 110 H Calcium Phosphorus Magnesium ALT Alkaline Phosphatase Total Creatine Kinase CK-MB (CK-2) Rel Index Troponin T Albumin LDL Cholesterol Direct PTH Intact Salicylates Acetaminophen Crossmatch 02/26/19 02/26/19 02/27/19 11:56 17:43 00:12 WBC RBC Hgb Hct MCH MCHC RDW Lymph % (Auto) [place] % (Auto) Eos % (Auto) Lymph # [place] # Eos # Seg Neutrophils % Seg Neuts % (Manual) Lymphocytes % (Manual) Eosinophils % (Manual) Seg Neutrophils # Lymphocytes # (Manual) Eosinophils # (Manual) PT INR D-Dimer POC ABG pH POC ABG pCO2 POC ABG pO2 ABG pO2 ABG HCO3 ABG Base Excess ABG Hemoglobin Oxyhemoglobin Sodium Potassium Chloride Carbon Dioxide BUN Creatinine Glucose POC Glucose 112 H 127 H 127 H Calcium Phosphorus Magnesium ALT Alkaline Phosphatase Total Creatine Kinase CK-MB (CK-2) Rel Index Troponin T Albumin LDL Cholesterol Direct PTH Intact Salicylates Acetaminophen Crossmatch 02/27/19 02/27/19 02/27/19 04:35 13:15 18:02 WBC RBC Hgb Hct MCH MCHC RDW Lymph % (Auto) [place] % (Auto) Eos % (Auto) Lymph # [place] # Eos # Seg Neutrophils % Seg Neuts % (Manual) Lymphocytes % (Manual) Eosinophils % (Manual) Seg Neutrophils # Lymphocytes # (Manual) Eosinophils # (Manual) PT INR D-Dimer POC ABG pH 7.483 H POC ABG pCO2 POC ABG pO2 61 L ABG pO2 ABG HCO3 ABG Base Excess ABG Hemoglobin Oxyhemoglobin Sodium Potassium Chloride Carbon Dioxide BUN Creatinine Glucose POC Glucose 143 H 106 H Calcium Phosphorus Magnesium ALT Alkaline Phosphatase Total Creatine Kinase CK-MB (CK-2) Rel Index Troponin T Albumin LDL Cholesterol Direct PTH Intact Salicylates Acetaminophen Crossmatch 02/28/19 02/28/19 02/28/19 05:50 11:59 17:52 WBC RBC Hgb Hct MCH MCHC RDW Lymph % (Auto) [place] % (Auto) Eos % (Auto) Lymph # [place] # Eos # Seg Neutrophils % Seg Neuts % (Manual) Lymphocytes % (Manual) Eosinophils % (Manual) Seg Neutrophils # Lymphocytes # (Manual) Eosinophils # (Manual) PT INR D-Dimer POC ABG pH POC ABG pCO2 POC ABG pO2 ABG pO2 ABG HCO3 ABG Base Excess ABG Hemoglobin Oxyhemoglobin Sodium Potassium Chloride Carbon Dioxide BUN Creatinine Glucose POC Glucose 134 H 128 H 142 H Calcium Phosphorus Magnesium ALT Alkaline Phosphatase Total Creatine Kinase CK-MB (CK-2) Rel Index Troponin T Albumin LDL Cholesterol Direct PTH Intact Salicylates Acetaminophen Crossmatch 02/28/19 03/01/19 03/01/19 23:13 05:40 09:39 WBC RBC Hgb Hct MCH MCHC RDW Lymph % (Auto) [place] % (Auto) Eos % (Auto) Lymph # [place] # Eos # Seg Neutrophils % Seg Neuts % (Manual) Lymphocytes % (Manual) Eosinophils % (Manual) Seg Neutrophils # Lymphocytes # (Manual) Eosinophils # (Manual) PT 16.3 H INR 1.35 H D-Dimer POC ABG pH POC ABG pCO2 POC ABG pO2 ABG pO2 ABG HCO3 ABG Base Excess ABG Hemoglobin Oxyhemoglobin Sodium Potassium Chloride Carbon Dioxide BUN Creatinine Glucose POC Glucose 112 H 111 H Calcium Phosphorus Magnesium ALT Alkaline Phosphatase Total Creatine Kinase CK-MB (CK-2) Rel Index Troponin T Albumin LDL Cholesterol Direct PTH Intact Salicylates Acetaminophen Crossmatch 03/01/19 03/01/19 03/01/19 11:56 13:54 17:59 WBC RBC Hgb Hct MCH MCHC RDW Lymph % (Auto) [place] % (Auto) Eos % (Auto) Lymph # [place] # Eos # Seg Neutrophils % Seg Neuts % (Manual) Lymphocytes % (Manual) Eosinophils % (Manual) Seg Neutrophils # Lymphocytes # (Manual) Eosinophils # (Manual) PT INR D-Dimer POC ABG pH POC ABG pCO2 POC ABG pO2 ABG pO2 ABG HCO3 ABG Base Excess ABG Hemoglobin Oxyhemoglobin Sodium Potassium Chloride Carbon Dioxide BUN 33 H Creatinine 2.8 H D Glucose 176 H POC Glucose 199 H 147 H Calcium Phosphorus Magnesium ALT Alkaline Phosphatase Total Creatine Kinase CK-MB (CK-2) Rel Index Troponin T Albumin LDL Cholesterol Direct PTH Intact Salicylates Acetaminophen Crossmatch 03/02/19 03/02/19 03/02/19 05:15 05:15 05:15 WBC RBC 2.73 L Hgb 7.4 L Hct 23.0 L MCH 27 L MCHC RDW 19.9 H Lymph % (Auto) [place] % (Auto) 7.9 H Eos % (Auto) 7.6 H Lymph # 1.0 L [place] # Eos # 0.5 H Seg Neutrophils % Seg Neuts % (Manual) Lymphocytes % (Manual) Eosinophils % (Manual) Seg Neutrophils # Lymphocytes # (Manual) Eosinophils # (Manual) PT INR D-Dimer POC ABG pH POC ABG pCO2 POC ABG pO2 ABG pO2 ABG HCO3 ABG Base Excess ABG Hemoglobin Oxyhemoglobin Sodium Potassium Chloride Carbon Dioxide BUN 43 H Creatinine 3.2 H Glucose POC Glucose Calcium Phosphorus 2.30 L Magnesium ALT Alkaline Phosphatase Total Creatine Kinase CK-MB (CK-2) Rel Index Troponin T Albumin LDL Cholesterol Direct PTH Intact 267.6 H Salicylates Acetaminophen Crossmatch 03/02/19 03/02/19 03/03/19 12:32 18:20 13:30 WBC RBC Hgb Hct MCH MCHC RDW Lymph % (Auto) [place] % (Auto) Eos % (Auto) Lymph # [place] # Eos # Seg Neutrophils % Seg Neuts % (Manual) Lymphocytes % (Manual) Eosinophils % (Manual) Seg Neutrophils # Lymphocytes # (Manual) Eosinophils # (Manual) PT INR D-Dimer POC ABG pH POC ABG pCO2 POC ABG pO2 ABG pO2 ABG HCO3 ABG Base Excess ABG Hemoglobin Oxyhemoglobin Sodium Potassium Chloride 97.3 L Carbon Dioxide BUN 26 H Creatinine 2.2 H Glucose 73 L POC Glucose 111 H 156 H Calcium Phosphorus Magnesium ALT Alkaline Phosphatase Total Creatine Kinase CK-MB (CK-2) Rel Index Troponin T Albumin LDL Cholesterol Direct PTH Intact Salicylates Acetaminophen Crossmatch 03/04/19 03/04/19 03/04/19 00:02 05:37 05:40 WBC RBC 2.63 L Hgb 7.2 L Hct 22.2 L MCH MCHC RDW 20.2 H Lymph % (Auto) 10.5 L [place] % (Auto) Eos % (Auto) 4.6 H Lymph # 0.7 L [place] # Eos # Seg Neutrophils % 76.9 H Seg Neuts % (Manual) Lymphocytes % (Manual) Eosinophils % (Manual) Seg Neutrophils # Lymphocytes # (Manual) Eosinophils # (Manual) PT INR D-Dimer POC ABG pH POC ABG pCO2 POC ABG pO2 ABG pO2 ABG HCO3 ABG Base Excess ABG Hemoglobin Oxyhemoglobin Sodium Potassium Chloride Carbon Dioxide BUN Creatinine Glucose POC Glucose 136 H 123 H Calcium Phosphorus Magnesium ALT Alkaline Phosphatase Total Creatine Kinase CK-MB (CK-2) Rel Index Troponin T Albumin LDL Cholesterol Direct PTH Intact Salicylates Acetaminophen Crossmatch 03/04/19 03/04/19 03/04/19 05:40 11:39 23:20 WBC RBC Hgb Hct MCH MCHC RDW Lymph % (Auto) [place] % (Auto) Eos % (Auto) Lymph # [place] # Eos # Seg Neutrophils % Seg Neuts % (Manual) Lymphocytes % (Manual) Eosinophils % (Manual) Seg Neutrophils # Lymphocytes # (Manual) Eosinophils # (Manual) PT INR D-Dimer POC ABG pH POC ABG pCO2 POC ABG pO2 ABG pO2 ABG HCO3 ABG Base Excess ABG Hemoglobin Oxyhemoglobin Sodium Potassium Chloride Carbon Dioxide BUN 34 H Creatinine 2.7 H Glucose 114 H POC Glucose 175 H 151 H Calcium Phosphorus Magnesium ALT Alkaline Phosphatase Total Creatine Kinase CK-MB (CK-2) Rel Index Troponin T Albumin LDL Cholesterol Direct PTH Intact Salicylates Acetaminophen Crossmatch 03/05/19 03/05/19 03/05/19 05:37 12:08 17:11 WBC RBC Hgb Hct MCH MCHC RDW Lymph % (Auto) [place] % (Auto) Eos % (Auto) Lymph # [place] # Eos # Seg Neutrophils % Seg Neuts % (Manual) Lymphocytes % (Manual) Eosinophils % (Manual) Seg Neutrophils # Lymphocytes # (Manual) Eosinophils # (Manual) PT INR D-Dimer POC ABG pH POC ABG pCO2 POC ABG pO2 ABG pO2 ABG HCO3 ABG Base Excess ABG Hemoglobin Oxyhemoglobin Sodium Potassium Chloride Carbon Dioxide BUN Creatinine Glucose POC Glucose 134 H 135 H 135 H Calcium Phosphorus Magnesium ALT Alkaline Phosphatase Total Creatine Kinase CK-MB (CK-2) Rel Index Troponin T Albumin LDL Cholesterol Direct PTH Intact Salicylates Acetaminophen Crossmatch 03/06/19 03/06/19 03/06/19 00:16 13:05 18:09 WBC RBC Hgb Hct MCH MCHC RDW Lymph % (Auto) [place] % (Auto) Eos % (Auto) Lymph # [place] # Eos # Seg Neutrophils % Seg Neuts % (Manual) Lymphocytes % (Manual) Eosinophils % (Manual) Seg Neutrophils # Lymphocytes # (Manual) Eosinophils # (Manual) PT INR D-Dimer POC ABG pH POC ABG pCO2 POC ABG pO2 ABG pO2 ABG HCO3 ABG Base Excess ABG Hemoglobin Oxyhemoglobin Sodium Potassium Chloride Carbon Dioxide BUN Creatinine Glucose POC Glucose 117 H 113 H 131 H Calcium Phosphorus Magnesium ALT Alkaline Phosphatase Total Creatine Kinase CK-MB (CK-2) Rel Index Troponin T Albumin LDL Cholesterol Direct PTH Intact Salicylates Acetaminophen Crossmatch 03/07/19 03/08/19 03/08/19 05:25 05:33 16:00 WBC RBC 2.44 L Hgb 6.6 L Hct 20.8 L MCH 27 L MCHC RDW 19.2 H Lymph % (Auto) [place] % (Auto) Eos % (Auto) 8.6 H Lymph # 0.8 L [place] # Eos # 0.5 H Seg Neutrophils % 70.7 H Seg Neuts % (Manual) Lymphocytes % (Manual) Eosinophils % (Manual) Seg Neutrophils # Lymphocytes # (Manual) Eosinophils # (Manual) PT INR D-Dimer POC ABG pH POC ABG pCO2 POC ABG pO2 ABG pO2 ABG HCO3 ABG Base Excess ABG Hemoglobin Oxyhemoglobin Sodium Potassium Chloride Carbon Dioxide BUN Creatinine Glucose POC Glucose 106 H 108 H Calcium Phosphorus Magnesium ALT Alkaline Phosphatase Total Creatine Kinase CK-MB (CK-2) Rel Index Troponin T Albumin LDL Cholesterol Direct PTH Intact Salicylates Acetaminophen Crossmatch 03/08/19 03/08/19 03/08/19 16:00 18:38 Unknown WBC RBC Hgb Hct MCH MCHC RDW Lymph % (Auto) [place] % (Auto) Eos % (Auto) Lymph # [place] # Eos # Seg Neutrophils % Seg Neuts % (Manual) Lymphocytes % (Manual) Eosinophils % (Manual) Seg Neutrophils # Lymphocytes # (Manual) Eosinophils # (Manual) PT INR D-Dimer POC ABG pH POC ABG pCO2 POC ABG pO2 ABG pO2 ABG HCO3 ABG Base Excess ABG Hemoglobin Oxyhemoglobin Sodium Potassium 5.4 H D Chloride Carbon Dioxide BUN 47 H Creatinine 2.6 H Glucose POC Glucose 123 H Calcium Phosphorus Magnesium ALT < 5 L Alkaline Phosphatase Total Creatine Kinase CK-MB (CK-2) Rel Index Troponin T Albumin 2.2 L LDL Cholesterol Direct PTH Intact Salicylates Acetaminophen Crossmatch See Detail 03/09/19 03/09/19 03/09/19 10:48 12:28 13:53 WBC RBC 2.85 L Hgb 7.7 L Hct 24.2 L MCH 27 L MCHC RDW 18.7 H Lymph % (Auto) [place] % (Auto) Eos % (Auto) Lymph # [place] # Eos # Seg Neutrophils % Seg Neuts % (Manual) Lymphocytes % (Manual) Eosinophils % (Manual) Seg Neutrophils # Lymphocytes # (Manual) Eosinophils # (Manual) PT INR D-Dimer POC ABG pH POC ABG pCO2 POC ABG pO2 ABG pO2 ABG HCO3 30.5 H ABG Base Excess 5.6 H ABG Hemoglobin 8.1 L Oxyhemoglobin 93.8 L Sodium Potassium Chloride Carbon Dioxide BUN Creatinine Glucose POC Glucose 114 H Calcium Phosphorus Magnesium ALT Alkaline Phosphatase Total Creatine Kinase CK-MB (CK-2) Rel Index Troponin T Albumin LDL Cholesterol Direct PTH Intact Salicylates Acetaminophen Crossmatch 03/09/19 03/09/19 03/10/19 17:58 23:53 12:01 WBC RBC Hgb Hct MCH MCHC RDW Lymph % (Auto) [place] % (Auto) Eos % (Auto) Lymph # [place] # Eos # Seg Neutrophils % Seg Neuts % (Manual) Lymphocytes % (Manual) Eosinophils % (Manual) Seg Neutrophils # Lymphocytes # (Manual) Eosinophils # (Manual) PT INR D-Dimer POC ABG pH POC ABG pCO2 POC ABG pO2 ABG pO2 ABG HCO3 ABG Base Excess ABG Hemoglobin Oxyhemoglobin Sodium Potassium Chloride Carbon Dioxide BUN Creatinine Glucose POC Glucose 108 H 128 H 144 H Calcium Phosphorus Magnesium ALT Alkaline Phosphatase Total Creatine Kinase CK-MB (CK-2) Rel Index Troponin T Albumin LDL Cholesterol Direct PTH Intact Salicylates Acetaminophen Crossmatch 03/10/19 03/11/19 03/11/19 16:50 00:24 05:02 WBC RBC Hgb Hct MCH MCHC RDW Lymph % (Auto) [place] % (Auto) Eos % (Auto) Lymph # [place] # Eos # Seg Neutrophils % Seg Neuts % (Manual) Lymphocytes % (Manual) Eosinophils % (Manual) Seg Neutrophils # Lymphocytes # (Manual) Eosinophils # (Manual) PT INR D-Dimer POC ABG pH POC ABG pCO2 POC ABG pO2 ABG pO2 ABG HCO3 ABG Base Excess ABG Hemoglobin Oxyhemoglobin Sodium Potassium Chloride Carbon Dioxide BUN Creatinine Glucose POC Glucose 147 H 123 H 120 H Calcium Phosphorus Magnesium ALT Alkaline Phosphatase Total Creatine Kinase CK-MB (CK-2) Rel Index Troponin T Albumin LDL Cholesterol Direct PTH Intact Salicylates Acetaminophen Crossmatch 03/11/19 03/11/19 03/11/19 11:56 12:20 18:37 WBC RBC Hgb Hct MCH MCHC RDW Lymph % (Auto) [place] % (Auto) Eos % (Auto) Lymph # [place] # Eos # Seg Neutrophils % Seg Neuts % (Manual) Lymphocytes % (Manual) Eosinophils % (Manual) Seg Neutrophils # Lymphocytes # (Manual) Eosinophils # (Manual) PT INR D-Dimer POC ABG pH POC ABG pCO2 POC ABG pO2 ABG pO2 ABG HCO3 ABG Base Excess ABG Hemoglobin Oxyhemoglobin Sodium Potassium 5.2 H Chloride Carbon Dioxide BUN Creatinine Glucose POC Glucose 123 H 125 H Calcium Phosphorus Magnesium ALT Alkaline Phosphatase Total Creatine Kinase CK-MB (CK-2) Rel Index Troponin T Albumin LDL Cholesterol Direct PTH Intact Salicylates Acetaminophen Crossmatch 03/11/19 03/12/19 03/12/19 22:52 12:04 18:25 WBC RBC Hgb Hct MCH MCHC RDW Lymph % (Auto) [place] % (Auto) Eos % (Auto) Lymph # [place] # Eos # Seg Neutrophils % Seg Neuts % (Manual) Lymphocytes % (Manual) Eosinophils % (Manual) Seg Neutrophils # Lymphocytes # (Manual) Eosinophils # (Manual) PT INR D-Dimer POC ABG pH POC ABG pCO2 POC ABG pO2 ABG pO2 ABG HCO3 ABG Base Excess ABG Hemoglobin Oxyhemoglobin Sodium Potassium Chloride Carbon Dioxide BUN Creatinine Glucose POC Glucose 110 H 106 H 118 H Calcium Phosphorus Magnesium ALT Alkaline Phosphatase Total Creatine Kinase CK-MB (CK-2) Rel Index Troponin T Albumin LDL Cholesterol Direct PTH Intact Salicylates Acetaminophen Crossmatch 03/12/19 03/13/19 03/13/19 23:36 04:38 04:38 WBC RBC 2.95 L Hgb 7.9 L Hct 24.9 L MCH 27 L MCHC RDW 19.9 H Lymph % (Auto) 11.1 L [place] % (Auto) 8.1 H Eos % (Auto) 4.4 H Lymph # 0.9 L [place] # Eos # Seg Neutrophils % 75.4 H Seg Neuts % (Manual) Lymphocytes % (Manual) Eosinophils % (Manual) Seg Neutrophils # Lymphocytes # (Manual) Eosinophils # (Manual) PT INR D-Dimer POC ABG pH POC ABG pCO2 POC ABG pO2 ABG pO2 ABG HCO3 ABG Base Excess ABG Hemoglobin Oxyhemoglobin Sodium 136 L Potassium 5.1 H Chloride 93.8 L Carbon Dioxide BUN 48 H Creatinine 2.7 H Glucose 102 H POC Glucose 115 H Calcium Phosphorus Magnesium ALT < 5 L Alkaline Phosphatase 143 H Total Creatine Kinase CK-MB (CK-2) Rel Index Troponin T Albumin 2.5 L LDL Cholesterol Direct PTH Intact Salicylates Acetaminophen Crossmatch 03/13/19 03/13/19 03/13/19 05:33 13:37 18:03 WBC RBC Hgb Hct MCH MCHC RDW Lymph % (Auto) [place] % (Auto) Eos % (Auto) Lymph # [place] # Eos # Seg Neutrophils % Seg Neuts % (Manual) Lymphocytes % (Manual) Eosinophils % (Manual) Seg Neutrophils # Lymphocytes # (Manual) Eosinophils # (Manual) PT INR D-Dimer POC ABG pH POC ABG pCO2 POC ABG pO2 ABG pO2 ABG HCO3 ABG Base Excess ABG Hemoglobin Oxyhemoglobin Sodium Potassium Chloride Carbon Dioxide BUN Creatinine Glucose POC Glucose 140 H 150 H 158 H Calcium Phosphorus Magnesium ALT Alkaline Phosphatase Total Creatine Kinase CK-MB (CK-2) Rel Index Troponin T Albumin LDL Cholesterol Direct PTH Intact Salicylates Acetaminophen Crossmatch 03/13/19 03/14/19 03/14/19 23:32 05:24 12:20 WBC RBC Hgb Hct MCH MCHC RDW Lymph % (Auto) [place] % (Auto) Eos % (Auto) Lymph # [place] # Eos # Seg Neutrophils % Seg Neuts % (Manual) Lymphocytes % (Manual) Eosinophils % (Manual) Seg Neutrophils # Lymphocytes # (Manual) Eosinophils # (Manual) PT INR D-Dimer POC ABG pH POC ABG pCO2 POC ABG pO2 ABG pO2 ABG HCO3 ABG Base Excess ABG Hemoglobin Oxyhemoglobin Sodium Potassium Chloride Carbon Dioxide BUN Creatinine Glucose POC Glucose 162 H 146 H 127 H Calcium Phosphorus Magnesium ALT Alkaline Phosphatase Total Creatine Kinase CK-MB (CK-2) Rel Index Troponin T Albumin LDL Cholesterol Direct PTH Intact Salicylates Acetaminophen Crossmatch 03/14/19 03/14/19 03/15/19 18:05 23:57 04:38 WBC 12.8 H RBC 3.11 L Hgb 8.1 L Hct 26.5 L MCH 26 L MCHC 31 L RDW 19.7 H Lymph % (Auto) 4.4 L [place] % (Auto) 7.4 H Eos % (Auto) Lymph # 0.6 L [place] # 0.9 H Eos # Seg Neutrophils % 87.3 H Seg Neuts % (Manual) Lymphocytes % (Manual) Eosinophils % (Manual) Seg Neutrophils # 11.2 H Lymphocytes # (Manual) Eosinophils # (Manual) PT INR D-Dimer POC ABG pH POC ABG pCO2 POC ABG pO2 ABG pO2 ABG HCO3 ABG Base Excess ABG Hemoglobin Oxyhemoglobin Sodium Potassium Chloride Carbon Dioxide BUN Creatinine Glucose POC Glucose 142 H 155 H Calcium Phosphorus Magnesium ALT Alkaline Phosphatase Total Creatine Kinase CK-MB (CK-2) Rel Index Troponin T Albumin LDL Cholesterol Direct PTH Intact Salicylates Acetaminophen Crossmatch 03/15/19 03/15/19 03/15/19 04:38 05:31 11:32 WBC RBC Hgb Hct MCH MCHC RDW Lymph % (Auto) [place] % (Auto) Eos % (Auto) Lymph # [place] # Eos # Seg Neutrophils % Seg Neuts % (Manual) Lymphocytes % (Manual) Eosinophils % (Manual) Seg Neutrophils # Lymphocytes # (Manual) Eosinophils # (Manual) PT INR D-Dimer POC ABG pH POC ABG pCO2 POC ABG pO2 ABG pO2 ABG HCO3 ABG Base Excess ABG Hemoglobin Oxyhemoglobin Sodium 135 L Potassium Chloride 91.9 L Carbon Dioxide BUN 54 H Creatinine 2.8 H Glucose 128 H POC Glucose 160 H 109 H Calcium 11.1 H Phosphorus Magnesium ALT Alkaline Phosphatase 161 H Total Creatine Kinase CK-MB (CK-2) Rel Index Troponin T Albumin 2.3 L LDL Cholesterol Direct PTH Intact Salicylates Acetaminophen Crossmatch 03/15/19 03/15/19 03/16/19 18:15 23:41 05:40 WBC RBC Hgb Hct MCH MCHC RDW Lymph % (Auto) [place] % (Auto) Eos % (Auto) Lymph # [place] # Eos # Seg Neutrophils % Seg Neuts % (Manual) Lymphocytes % (Manual) Eosinophils % (Manual) Seg Neutrophils # Lymphocytes # (Manual) Eosinophils # (Manual) PT INR D-Dimer POC ABG pH POC ABG pCO2 POC ABG pO2 ABG pO2 ABG HCO3 ABG Base Excess ABG Hemoglobin Oxyhemoglobin Sodium Potassium Chloride Carbon Dioxide BUN Creatinine Glucose POC Glucose 151 H 110 H 163 H Calcium Phosphorus Magnesium ALT Alkaline Phosphatase Total Creatine Kinase CK-MB (CK-2) Rel Index Troponin T Albumin LDL Cholesterol Direct PTH Intact Salicylates Acetaminophen Crossmatch 03/16/19 03/16/19 03/16/19 11:55 17:04 23:58 WBC RBC Hgb Hct MCH MCHC RDW Lymph % (Auto) [place] % (Auto) Eos % (Auto) Lymph # [place] # Eos # Seg Neutrophils % Seg Neuts % (Manual) Lymphocytes % (Manual) Eosinophils % (Manual) Seg Neutrophils # Lymphocytes # (Manual) Eosinophils # (Manual) PT INR D-Dimer POC ABG pH POC ABG pCO2 POC ABG pO2 ABG pO2 ABG HCO3 ABG Base Excess ABG Hemoglobin Oxyhemoglobin Sodium Potassium Chloride Carbon Dioxide BUN Creatinine Glucose POC Glucose 114 H 147 H 192 H Calcium Phosphorus Magnesium ALT Alkaline Phosphatase Total Creatine Kinase CK-MB (CK-2) Rel Index Troponin T Albumin LDL Cholesterol Direct PTH Intact Salicylates Acetaminophen Crossmatch 03/17/19 03/17/19 03/17/19 05:53 11:17 17:01 WBC RBC Hgb Hct MCH MCHC RDW Lymph % (Auto) [place] % (Auto) Eos % (Auto) Lymph # [place] # Eos # Seg Neutrophils % Seg Neuts % (Manual) Lymphocytes % (Manual) Eosinophils % (Manual) Seg Neutrophils # Lymphocytes # (Manual) Eosinophils # (Manual) PT INR D-Dimer POC ABG pH POC ABG pCO2 POC ABG pO2 ABG pO2 ABG HCO3 ABG Base Excess ABG Hemoglobin Oxyhemoglobin Sodium Potassium Chloride Carbon Dioxide BUN Creatinine Glucose POC Glucose 151 H 161 H 152 H Calcium Phosphorus Magnesium ALT Alkaline Phosphatase Total Creatine Kinase CK-MB (CK-2) Rel Index Troponin T Albumin LDL Cholesterol Direct PTH Intact Salicylates Acetaminophen Crossmatch 03/17/19 03/18/19 03/18/19 21:47 04:15 04:44 WBC RBC Hgb Hct MCH MCHC RDW Lymph % (Auto) [place] % (Auto) Eos % (Auto) Lymph # [place] # Eos # Seg Neutrophils % Seg Neuts % (Manual) Lymphocytes % (Manual) Eosinophils % (Manual) Seg Neutrophils # Lymphocytes # (Manual) Eosinophils # (Manual) PT INR D-Dimer POC ABG pH POC ABG pCO2 POC ABG pO2 ABG pO2 102.8 H ABG HCO3 28.3 H ABG Base Excess ABG Hemoglobin 10.4 L Oxyhemoglobin 94.5 L Sodium Potassium Chloride Carbon Dioxide BUN Creatinine Glucose POC Glucose 170 H 150 H Calcium Phosphorus Magnesium ALT Alkaline Phosphatase Total Creatine Kinase CK-MB (CK-2) Rel Index Troponin T Albumin LDL Cholesterol Direct PTH Intact Salicylates Acetaminophen Crossmatch 03/18/19 03/18/19 03/18/19 06:38 12:12 17:47 WBC RBC Hgb Hct MCH MCHC RDW Lymph % (Auto) [place] % (Auto) Eos % (Auto) Lymph # [place] # Eos # Seg Neutrophils % Seg Neuts % (Manual) Lymphocytes % (Manual) Eosinophils % (Manual) Seg Neutrophils # Lymphocytes # (Manual) Eosinophils # (Manual) PT INR D-Dimer POC ABG pH 7.510 H POC ABG pCO2 POC ABG pO2 164 H ABG pO2 ABG HCO3 ABG Base Excess ABG Hemoglobin Oxyhemoglobin Sodium Potassium Chloride Carbon Dioxide BUN Creatinine Glucose POC Glucose 145 H 149 H Calcium Phosphorus Magnesium ALT Alkaline Phosphatase Total Creatine Kinase CK-MB (CK-2) Rel Index Troponin T Albumin LDL Cholesterol Direct PTH Intact Salicylates Acetaminophen Crossmatch 03/18/19 03/19/19 03/19/19 23:25 01:11 04:23 WBC 15.6 H RBC 2.51 L Hgb 6.5 L Hct 21.6 L MCH 26 L MCHC 30 L RDW 19.8 H Lymph % (Auto) 6.0 L [place] % (Auto) Eos % (Auto) Lymph # 0.9 L [place] # 1.0 H Eos # Seg Neutrophils % 85.5 H Seg Neuts % (Manual) Lymphocytes % (Manual) Eosinophils % (Manual) Seg Neutrophils # 13.4 H Lymphocytes # (Manual) Eosinophils # (Manual) PT INR D-Dimer POC ABG pH POC ABG pCO2 POC ABG pO2 ABG pO2 78.3 L ABG HCO3 30.7 H ABG Base Excess 5.8 H ABG Hemoglobin 5.8 L Oxyhemoglobin 94.6 L Sodium Potassium Chloride Carbon Dioxide BUN Creatinine Glucose POC Glucose 190 H Calcium Phosphorus Magnesium ALT Alkaline Phosphatase Total Creatine Kinase CK-MB (CK-2) Rel Index Troponin T Albumin LDL Cholesterol Direct PTH Intact Salicylates Acetaminophen Crossmatch 03/19/19 03/19/19 03/19/19 05:22 05:35 08:54 WBC RBC Hgb Hct MCH MCHC RDW Lymph % (Auto) [place] % (Auto) Eos % (Auto) Lymph # [place] # Eos # Seg Neutrophils % Seg Neuts % (Manual) Lymphocytes % (Manual) Eosinophils % (Manual) Seg Neutrophils # Lymphocytes # (Manual) Eosinophils # (Manual) PT INR D-Dimer POC ABG pH POC ABG pCO2 POC ABG pO2 ABG pO2 ABG HCO3 ABG Base Excess ABG Hemoglobin Oxyhemoglobin Sodium Potassium Chloride Carbon Dioxide BUN Creatinine Glucose POC Glucose 167 H Calcium Phosphorus Magnesium ALT Alkaline Phosphatase Total Creatine Kinase CK-MB (CK-2) Rel Index Troponin T Albumin LDL Cholesterol Direct PTH Intact Salicylates Acetaminophen Crossmatch See Detail See Detail 03/19/19 03/19/19 03/19/19 12:36 17:02 23:25 WBC RBC Hgb Hct MCH MCHC RDW Lymph % (Auto) [place] % (Auto) Eos % (Auto) Lymph # [place] # Eos # Seg Neutrophils % Seg Neuts % (Manual) Lymphocytes % (Manual) Eosinophils % (Manual) Seg Neutrophils # Lymphocytes # (Manual) Eosinophils # (Manual) PT INR D-Dimer POC ABG pH POC ABG pCO2 POC ABG pO2 ABG pO2 ABG HCO3 ABG Base Excess ABG Hemoglobin Oxyhemoglobin Sodium Potassium Chloride Carbon Dioxide BUN Creatinine Glucose POC Glucose 167 H 135 H 136 H Calcium Phosphorus Magnesium ALT Alkaline Phosphatase Total Creatine Kinase CK-MB (CK-2) Rel Index Troponin T Albumin LDL Cholesterol Direct PTH Intact Salicylates Acetaminophen Crossmatch 03/20/19 03/20/19 03/20/19 05:38 08:40 08:40 WBC RBC 2.61 L Hgb 7.1 L Hct 22.0 L MCH 27 L MCHC RDW 19.6 H Lymph % (Auto) 8.2 L [place] % (Auto) 8.3 H Eos % (Auto) 5.7 H Lymph # 0.8 L [place] # Eos # 0.5 H Seg Neutrophils % 77.3 H Seg Neuts % (Manual) Lymphocytes % (Manual) Eosinophils % (Manual) Seg Neutrophils # Lymphocytes # (Manual) Eosinophils # (Manual) PT INR D-Dimer POC ABG pH POC ABG pCO2 POC ABG pO2 ABG pO2 ABG HCO3 ABG Base Excess ABG Hemoglobin Oxyhemoglobin Sodium Potassium Chloride 95.9 L Carbon Dioxide BUN 69 H Creatinine 2.8 H Glucose 115 H POC Glucose 134 H Calcium 10.5 H Phosphorus Magnesium ALT Alkaline Phosphatase Total Creatine Kinase CK-MB (CK-2) Rel Index Troponin T Albumin LDL Cholesterol Direct PTH Intact Salicylates Acetaminophen Crossmatch 03/20/19 03/20/19 03/20/19 12:13 18:04 23:49 WBC RBC Hgb Hct MCH MCHC RDW Lymph % (Auto) [place] % (Auto) Eos % (Auto) Lymph # [place] # Eos # Seg Neutrophils % Seg Neuts % (Manual) Lymphocytes % (Manual) Eosinophils % (Manual) Seg Neutrophils # Lymphocytes # (Manual) Eosinophils # (Manual) PT INR D-Dimer POC ABG pH POC ABG pCO2 POC ABG pO2 ABG pO2 ABG HCO3 ABG Base Excess ABG Hemoglobin Oxyhemoglobin Sodium Potassium Chloride Carbon Dioxide BUN Creatinine Glucose POC Glucose 144 H 165 H 172 H Calcium Phosphorus Magnesium ALT Alkaline Phosphatase Total Creatine Kinase CK-MB (CK-2) Rel Index Troponin T Albumin LDL Cholesterol Direct PTH Intact Salicylates Acetaminophen Crossmatch 03/21/19 03/21/19 03/21/19 05:00 06:29 06:30 WBC RBC 2.72 L Hgb 7.4 L Hct 22.9 L MCH 27 L MCHC RDW 19.4 H Lymph % (Auto) [place] % (Auto) Eos % (Auto) Lymph # [place] # Eos # Seg Neutrophils % Seg Neuts % (Manual) 81.0 H Lymphocytes % (Manual) 8.0 L Eosinophils % (Manual) 8.0 H Seg Neutrophils # Lymphocytes # (Manual) 0.7 L Eosinophils # (Manual) 0.7 H PT INR D-Dimer POC ABG pH POC ABG pCO2 POC ABG pO2 ABG pO2 ABG HCO3 ABG Base Excess ABG Hemoglobin Oxyhemoglobin Sodium Potassium Chloride Carbon Dioxide 33 H BUN 43 H Creatinine 1.7 H Glucose 145 H POC Glucose 156 H Calcium Phosphorus Magnesium ALT Alkaline Phosphatase 212 H Total Creatine Kinase CK-MB (CK-2) Rel Index Troponin T Albumin 2.2 L LDL Cholesterol Direct PTH Intact Salicylates Acetaminophen Crossmatch 03/21/19 03/21/19 03/22/19 12:02 18:07 00:21 WBC RBC Hgb Hct MCH MCHC RDW Lymph % (Auto) [place] % (Auto) Eos % (Auto) Lymph # [place] # Eos # Seg Neutrophils % Seg Neuts % (Manual) Lymphocytes % (Manual) Eosinophils % (Manual) Seg Neutrophils # Lymphocytes # (Manual) Eosinophils # (Manual) PT INR D-Dimer POC ABG pH POC ABG pCO2 POC ABG pO2 ABG pO2 ABG HCO3 ABG Base Excess ABG Hemoglobin Oxyhemoglobin Sodium Potassium Chloride Carbon Dioxide BUN Creatinine Glucose POC Glucose 163 H 144 H 153 H Calcium Phosphorus Magnesium ALT Alkaline Phosphatase Total Creatine Kinase CK-MB (CK-2) Rel Index Troponin T Albumin LDL Cholesterol Direct PTH Intact Salicylates Acetaminophen Crossmatch 03/22/19 03/22/19 03/22/19 05:23 05:23 05:31 WBC RBC 2.58 L Hgb 7.1 L Hct 21.8 L MCH 27 L MCHC RDW 19.2 H Lymph % (Auto) [place] % (Auto) Eos % (Auto) Lymph # [place] # Eos # Seg Neutrophils % Seg Neuts % (Manual) Lymphocytes % (Manual) Eosinophils % (Manual) Seg Neutrophils # Lymphocytes # (Manual) Eosinophils # (Manual) PT INR D-Dimer POC ABG pH POC ABG pCO2 POC ABG pO2 ABG pO2 ABG HCO3 ABG Base Excess ABG Hemoglobin Oxyhemoglobin Sodium 147 H Potassium Chloride Carbon Dioxide BUN 68 H Creatinine 2.5 H Glucose POC Glucose 116 H Calcium 10.3 H Phosphorus Magnesium ALT Alkaline Phosphatase Total Creatine Kinase CK-MB (CK-2) Rel Index Troponin T Albumin LDL Cholesterol Direct PTH Intact Salicylates Acetaminophen Crossmatch 03/22/19 03/22/19 03/22/19 08:48 12:37 17:35 WBC RBC Hgb Hct MCH MCHC RDW Lymph % (Auto) [place] % (Auto) Eos % (Auto) Lymph # [place] # Eos # Seg Neutrophils % Seg Neuts % (Manual) Lymphocytes % (Manual) Eosinophils % (Manual) Seg Neutrophils # Lymphocytes # (Manual) Eosinophils # (Manual) PT INR D-Dimer POC ABG pH POC ABG pCO2 POC ABG pO2 ABG pO2 ABG HCO3 ABG Base Excess ABG Hemoglobin Oxyhemoglobin Sodium Potassium Chloride Carbon Dioxide BUN Creatinine Glucose POC Glucose 143 H 155 H Calcium Phosphorus Magnesium ALT Alkaline Phosphatase Total Creatine Kinase CK-MB (CK-2) Rel Index Troponin T Albumin LDL Cholesterol Direct PTH Intact Salicylates Acetaminophen Crossmatch See Detail 03/23/19 03/23/19 03/23/19 00:07 04:00 04:00 WBC 11.2 H RBC 2.32 L Hgb 6.4 L Hct 19.7 L* MCH MCHC RDW 19.4 H Lymph % (Auto) [place] % (Auto) Eos % (Auto) Lymph # [place] # Eos # Seg Neutrophils % Seg Neuts % (Manual) Lymphocytes % (Manual) Eosinophils % (Manual) Seg Neutrophils # Lymphocytes # (Manual) Eosinophils # (Manual) PT INR D-Dimer POC ABG pH POC ABG pCO2 POC ABG pO2 ABG pO2 ABG HCO3 ABG Base Excess ABG Hemoglobin Oxyhemoglobin Sodium 147 H Potassium 5.2 H Chloride Carbon Dioxide BUN 86 H Creatinine 3.2 H Glucose 128 H POC Glucose 135 H Calcium 10.3 H Phosphorus Magnesium ALT Alkaline Phosphatase Total Creatine Kinase CK-MB (CK-2) Rel Index Troponin T Albumin LDL Cholesterol Direct PTH Intact Salicylates Acetaminophen Crossmatch 03/23/19 03/23/19 03/23/19 05:21 11:36 11:36 WBC RBC Hgb 7.9 L Hct 25.0 L MCH MCHC RDW Lymph % (Auto) [place] % (Auto) Eos % (Auto) Lymph # [place] # Eos # Seg Neutrophils % Seg Neuts % (Manual) Lymphocytes % (Manual) Eosinophils % (Manual) Seg Neutrophils # Lymphocytes # (Manual) Eosinophils # (Manual) PT INR D-Dimer POC ABG pH POC ABG pCO2 POC ABG pO2 ABG pO2 ABG HCO3 ABG Base Excess ABG Hemoglobin Oxyhemoglobin Sodium Potassium Chloride Carbon Dioxide BUN Creatinine Glucose POC Glucose 132 H 147 H Calcium Phosphorus Magnesium ALT Alkaline Phosphatase Total Creatine Kinase CK-MB (CK-2) Rel Index Troponin T Albumin LDL Cholesterol Direct PTH Intact Salicylates Acetaminophen Crossmatch 09/02/19 09/03/19 09/03/19 17:31 01:22 04:20 WBC 12.2 H RBC 3.05 L Hgb 8.3 L Hct 25.9 L MCH 27 L MCHC RDW 18.7 H Lymph % (Auto) [place] % (Auto) Eos % (Auto) Lymph # [place] # Eos # Seg Neutrophils % Seg Neuts % (Manual) Lymphocytes % (Manual) Eosinophils % (Manual) Seg Neutrophils # Lymphocytes # (Manual) Eosinophils # (Manual) PT INR D-Dimer POC ABG pH POC ABG pCO2 POC ABG pO2 ABG pO2 ABG HCO3 ABG Base Excess ABG Hemoglobin Oxyhemoglobin Sodium Potassium Chloride Carbon Dioxide BUN Creatinine Glucose POC Glucose 182 H 113 H Calcium Phosphorus Magnesium ALT Alkaline Phosphatase Total Creatine Kinase CK-MB (CK-2) Rel Index Troponin T Albumin LDL Cholesterol Direct PTH Intact Salicylates Acetaminophen Crossmatch 03/24/19 03/24/19 03/24/19 04:20 11:59 18:14 WBC RBC Hgb Hct MCH MCHC RDW Lymph % (Auto) [place] % (Auto) Eos % (Auto) Lymph # [place] # Eos # Seg Neutrophils % Seg Neuts % (Manual) Lymphocytes % (Manual) Eosinophils % (Manual) Seg Neutrophils # Lymphocytes # (Manual) Eosinophils # (Manual) PT INR D-Dimer POC ABG pH POC ABG pCO2 POC ABG pO2 ABG pO2 ABG HCO3 ABG Base Excess ABG Hemoglobin Oxyhemoglobin Sodium Potassium Chloride 94.8 L Carbon Dioxide 32 H BUN 53 H Creatinine 2.3 H Glucose POC Glucose 163 H 134 H Calcium Phosphorus Magnesium ALT Alkaline Phosphatase Total Creatine Kinase CK-MB (CK-2) Rel Index Troponin T Albumin LDL Cholesterol Direct PTH Intact Salicylates Acetaminophen Crossmatch 03/24/19 03/25/19 03/25/19 23:15 05:52 12:02 WBC RBC Hgb Hct MCH MCHC RDW Lymph % (Auto) [place] % (Auto) Eos % (Auto) Lymph # [place] # Eos # Seg Neutrophils % Seg Neuts % (Manual) Lymphocytes % (Manual) Eosinophils % (Manual) Seg Neutrophils # Lymphocytes # (Manual) Eosinophils # (Manual) PT INR D-Dimer POC ABG pH POC ABG pCO2 POC ABG pO2 ABG pO2 ABG HCO3 ABG Base Excess ABG Hemoglobin Oxyhemoglobin Sodium Potassium Chloride Carbon Dioxide BUN Creatinine Glucose POC Glucose 129 H 123 H 125 H Calcium Phosphorus Magnesium ALT Alkaline Phosphatase Total Creatine Kinase CK-MB (CK-2) Rel Index Troponin T Albumin LDL Cholesterol Direct PTH Intact Salicylates Acetaminophen Crossmatch 03/25/19 03/26/19 03/26/19 17:27 00:30 05:35 WBC RBC 3.01 L Hgb 8.1 L Hct 25.7 L MCH 27 L MCHC RDW 19.2 H Lymph % (Auto) 11.4 L [place] % (Auto) Eos % (Auto) 8.0 H Lymph # 1.0 L [place] # Eos # 0.7 H Seg Neutrophils % 73.9 H Seg Neuts % (Manual) Lymphocytes % (Manual) Eosinophils % (Manual) Seg Neutrophils # Lymphocytes # (Manual) Eosinophils # (Manual) PT INR D-Dimer POC ABG pH POC ABG pCO2 POC ABG pO2 ABG pO2 ABG HCO3 ABG Base Excess ABG Hemoglobin Oxyhemoglobin Sodium Potassium Chloride Carbon Dioxide BUN Creatinine Glucose POC Glucose 130 H 129 H Calcium Phosphorus Magnesium ALT Alkaline Phosphatase Total Creatine Kinase CK-MB (CK-2) Rel Index Troponin T Albumin LDL Cholesterol Direct PTH Intact Salicylates Acetaminophen Crossmatch 03/26/19 03/26/19 03/26/19 05:35 05:45 12:16 WBC RBC Hgb Hct MCH MCHC RDW Lymph % (Auto) [place] % (Auto) Eos % (Auto) Lymph # [place] # Eos # Seg Neutrophils % Seg Neuts % (Manual) Lymphocytes % (Manual) Eosinophils % (Manual) Seg Neutrophils # Lymphocytes # (Manual) Eosinophils # (Manual) PT INR D-Dimer POC ABG pH POC ABG pCO2 POC ABG pO2 ABG pO2 ABG HCO3 ABG Base Excess ABG Hemoglobin Oxyhemoglobin Sodium Potassium Chloride 94.9 L Carbon Dioxide 31 H BUN 44 H Creatinine 2.0 H Glucose POC Glucose 118 H 107 H Calcium Phosphorus Magnesium ALT Alkaline Phosphatase Total Creatine Kinase CK-MB (CK-2) Rel Index Troponin T Albumin LDL Cholesterol Direct PTH Intact Salicylates Acetaminophen Crossmatch 03/26/19 03/27/19 03/27/19 17:56 00:36 05:37 WBC RBC Hgb Hct MCH MCHC RDW Lymph % (Auto) [place] % (Auto) Eos % (Auto) Lymph # [place] # Eos # Seg Neutrophils % Seg Neuts % (Manual) Lymphocytes % (Manual) Eosinophils % (Manual) Seg Neutrophils # Lymphocytes # (Manual) Eosinophils # (Manual) PT INR D-Dimer POC ABG pH POC ABG pCO2 POC ABG pO2 ABG pO2 ABG HCO3 ABG Base Excess ABG Hemoglobin Oxyhemoglobin Sodium Potassium Chloride Carbon Dioxide BUN Creatinine Glucose POC Glucose 107 H 110 H 122 H Calcium Phosphorus Magnesium ALT Alkaline Phosphatase Total Creatine Kinase CK-MB (CK-2) Rel Index Troponin T Albumin LDL Cholesterol Direct PTH Intact Salicylates Acetaminophen Crossmatch 03/27/19 03/27/19 03/28/19 11:22 18:00 05:17 WBC RBC Hgb Hct MCH MCHC RDW Lymph % (Auto) [place] % (Auto) Eos % (Auto) Lymph # [place] # Eos # Seg Neutrophils % Seg Neuts % (Manual) Lymphocytes % (Manual) Eosinophils % (Manual) Seg Neutrophils # Lymphocytes # (Manual) Eosinophils # (Manual) PT INR D-Dimer POC ABG pH POC ABG pCO2 POC ABG pO2 ABG pO2 ABG HCO3 ABG Base Excess ABG Hemoglobin Oxyhemoglobin Sodium Potassium Chloride Carbon Dioxide BUN Creatinine Glucose POC Glucose 120 H 111 H 107 H Calcium Phosphorus Magnesium ALT Alkaline Phosphatase Total Creatine Kinase CK-MB (CK-2) Rel Index Troponin T Albumin LDL Cholesterol Direct PTH Intact Salicylates Acetaminophen Crossmatch 03/28/19 03/28/19 03/29/19 12:27 18:08 05:47 WBC RBC Hgb Hct MCH MCHC RDW Lymph % (Auto) [place] % (Auto) Eos % (Auto) Lymph # [place] # Eos # Seg Neutrophils % Seg Neuts % (Manual) Lymphocytes % (Manual) Eosinophils % (Manual) Seg Neutrophils # Lymphocytes # (Manual) Eosinophils # (Manual) PT INR D-Dimer POC ABG pH POC ABG pCO2 POC ABG pO2 ABG pO2 ABG HCO3 ABG Base Excess ABG Hemoglobin Oxyhemoglobin Sodium Potassium Chloride Carbon Dioxide BUN Creatinine Glucose POC Glucose 114 H 121 H 112 H Calcium Phosphorus Magnesium ALT Alkaline Phosphatase Total Creatine Kinase CK-MB (CK-2) Rel Index Troponin T Albumin LDL Cholesterol Direct PTH Intact Salicylates Acetaminophen Crossmatch 03/29/19 03/29/19 03/30/19 12:14 18:08 00:31 WBC RBC Hgb Hct MCH MCHC RDW Lymph % (Auto) [place] % (Auto) Eos % (Auto) Lymph # [place] # Eos # Seg Neutrophils % Seg Neuts % (Manual) Lymphocytes % (Manual) Eosinophils % (Manual) Seg Neutrophils # Lymphocytes # (Manual) Eosinophils # (Manual) PT INR D-Dimer POC ABG pH POC ABG pCO2 POC ABG pO2 ABG pO2 ABG HCO3 ABG Base Excess ABG Hemoglobin Oxyhemoglobin Sodium Potassium Chloride Carbon Dioxide BUN Creatinine Glucose POC Glucose 117 H 140 H 114 H Calcium Phosphorus Magnesium ALT Alkaline Phosphatase Total Creatine Kinase CK-MB (CK-2) Rel Index Troponin T Albumin LDL Cholesterol Direct PTH Intact Salicylates Acetaminophen Crossmatch 03/30/19 03/30/19 03/30/19 10:13 10:13 23:53 WBC RBC 2.81 L Hgb 7.7 L Hct 24.3 L MCH 27 L MCHC RDW 19.0 H Lymph % (Auto) 12.2 L [place] % (Auto) Eos % (Auto) 7.9 H Lymph # 1.0 L [place] # Eos # 0.6 H Seg Neutrophils % 72.3 H Seg Neuts % (Manual) Lymphocytes % (Manual) Eosinophils % (Manual) Seg Neutrophils # Lymphocytes # (Manual) Eosinophils # (Manual) PT INR D-Dimer POC ABG pH POC ABG pCO2 POC ABG pO2 ABG pO2 ABG HCO3 ABG Base Excess ABG Hemoglobin Oxyhemoglobin Sodium Potassium 5.1 H Chloride 96.5 L Carbon Dioxide BUN 73 H Creatinine 3.9 H D Glucose POC Glucose 114 H Calcium 10.3 H Phosphorus 6.30 H Magnesium 2.70 H ALT Alkaline Phosphatase 185 H Total Creatine Kinase CK-MB (CK-2) Rel Index Troponin T Albumin 2.6 L LDL Cholesterol Direct PTH Intact Salicylates Acetaminophen Crossmatch 03/31/19 03/31/19 03/31/19 05:45 10:26 10:26 WBC RBC 3.01 L Hgb 8.2 L Hct 26.4 L MCH 27 L MCHC 31 L RDW 20.3 H Lymph % (Auto) 13.3 L [place] % (Auto) Eos % (Auto) 7.2 H Lymph # 1.1 L [place] # Eos # 0.6 H Seg Neutrophils % 72.1 H Seg Neuts % (Manual) Lymphocytes % (Manual) Eosinophils % (Manual) Seg Neutrophils # Lymphocytes # (Manual) Eosinophils # (Manual) PT INR D-Dimer POC ABG pH POC ABG pCO2 POC ABG pO2 ABG pO2 ABG HCO3 ABG Base Excess ABG Hemoglobin Oxyhemoglobin Sodium Potassium Chloride 96.9 L Carbon Dioxide 33 H BUN 37 H Creatinine 2.4 H Glucose POC Glucose 108 H Calcium 10.3 H Phosphorus Magnesium ALT Alkaline Phosphatase Total Creatine Kinase CK-MB (CK-2) Rel Index Troponin T Albumin LDL Cholesterol Direct PTH Intact Salicylates Acetaminophen Crossmatch 03/31/19 04/01/19 04/01/19 12:38 05:48 12:06 WBC RBC Hgb Hct MCH MCHC RDW Lymph % (Auto) [place] % (Auto) Eos % (Auto) Lymph # [place] # Eos # Seg Neutrophils % Seg Neuts % (Manual) Lymphocytes % (Manual) Eosinophils % (Manual) Seg Neutrophils # Lymphocytes # (Manual) Eosinophils # (Manual) PT INR D-Dimer POC ABG pH POC ABG pCO2 POC ABG pO2 ABG pO2 ABG HCO3 ABG Base Excess ABG Hemoglobin Oxyhemoglobin Sodium Potassium Chloride Carbon Dioxide BUN Creatinine Glucose POC Glucose 108 H 114 H 111 H Calcium Phosphorus Magnesium ALT Alkaline Phosphatase Total Creatine Kinase CK-MB (CK-2) Rel Index Troponin T Albumin LDL Cholesterol Direct PTH Intact Salicylates Acetaminophen Crossmatch 04/01/19 04/02/19 04/04/19 18:24 00:36 23:55 WBC RBC Hgb Hct MCH MCHC RDW Lymph % (Auto) [place] % (Auto) Eos % (Auto) Lymph # [place] # Eos # Seg Neutrophils % Seg Neuts % (Manual) Lymphocytes % (Manual) Eosinophils % (Manual) Seg Neutrophils # Lymphocytes # (Manual) Eosinophils # (Manual) PT INR D-Dimer POC ABG pH POC ABG pCO2 POC ABG pO2 ABG pO2 ABG HCO3 ABG Base Excess ABG Hemoglobin Oxyhemoglobin Sodium Potassium Chloride Carbon Dioxide BUN Creatinine Glucose POC Glucose 113 H 117 H 109 H Calcium Phosphorus Magnesium ALT Alkaline Phosphatase Total Creatine Kinase CK-MB (CK-2) Rel Index Troponin T Albumin LDL Cholesterol Direct PTH Intact Salicylates Acetaminophen Crossmatch 04/06/19 04/06/19 00:11 06:02 WBC RBC Hgb Hct MCH MCHC RDW Lymph % (Auto) [place] % (Auto) Eos % (Auto) Lymph # [place] # Eos # Seg Neutrophils % Seg Neuts % (Manual) Lymphocytes % (Manual) Eosinophils % (Manual) Seg Neutrophils # Lymphocytes # (Manual) Eosinophils # (Manual) PT INR D-Dimer POC ABG pH POC ABG pCO2 POC ABG pO2 ABG pO2 ABG HCO3 ABG Base Excess ABG Hemoglobin Oxyhemoglobin Sodium Potassium Chloride Carbon Dioxide BUN Creatinine Glucose POC Glucose 116 H 112 H Calcium Phosphorus Magnesium ALT Alkaline Phosphatase Total Creatine Kinase CK-MB (CK-2) Rel Index Troponin T Albumin LDL Cholesterol Direct PTH Intact Salicylates Acetaminophen Crossmatch
[2019-04-06] MEDS: IPRATROPIUM/ALBUTEROL SULFATE 3 ML AMPUL.NEB IH SCH ×3 (09:31→20:16)
--- NOTE | 2019-04-06 09:54 | Progress Note ---
Assessment and Plan Assessment: * End stage renal disease (outpatient TTS schedule) * Acute hypoxic respiratory failure s/p trach * KEON pneumonia --Sputum cx: MDR Acinetobacter * Cardiomyopathy - EF 35-40% * Atrial fibrillation * History of CVA * Anemia secondary to ESRD * Secondary hyperparathyroidism Plan * Continue HD via [facility] AVG; MWF schedule for now * UF as tolerated * IF/Vascular surgery consulted for access evaluation * Nutrition per primary team * Dose medications for renal function * Epogen 20k TIW Subjective Date of service: 04/06/19 Principal diagnosis: Respiratory failure, acute on chronic systolic HF, ESRD Interval history: No acute events Objective - Vital Signs Vital signs: Vital Signs - 12hr 04/06/19 04/06/19 04/06/19 00:00 00:20 04:29 Temperature 97.8 F 98.3 F Pulse Rate 80 77 Respiratory 18 18 Rate Blood Pressure 124/63 127/63 O2 Sat by Pulse 98 100 Oximetry O2 Sat by Pulse 98 Oximetry [ Assessment] 04/06/19 04/06/19 04/06/19 07:48 08:49 09:35 Temperature 98.2 F Pulse Rate 93 H 94 H Respiratory 18 Rate Blood Pressure 124/65 O2 Sat by Pulse 96 100 Oximetry O2 Sat by Pulse Oximetry [ Assessment] - General Appearance General appearance: well-developed, well-nourished EENT: ATNC Neck: other (trach) Respiratory: Present: Decreased Breath Sounds Cardiology: regular, S1S2 Gastrointestinal: other (ostomy, PEG) Integumentary: warm and dry Psychiatric: cooperative - Lab 03/31/19 10:26 03/31/19 10:26 Most recent lab results ABG pH 7.424 pH Units (7.350-7.450) 03/19/19 04:23 ABG pCO2 48.0 mm Hg 03/19/19 04:23 ABG pO2 78.3 mm Hg (80.0-90.0) L 03/19/19 04:23 ABG HCO3 30.7 mmol/L (20.0-26.0) H 03/19/19 04:23 ABG O2 Saturation 97.0 % (95.0-99.0) 03/19/19 04:23 Calcium 10.3 mg/dL (8.4-10.2) H 03/31/19 10:26 Phosphorus 4.30 mg/dL (2.5-4.5) D 03/31/19 10:26 Magnesium 2.70 mg/dL (1.7-2.3) H 03/30/19 10:13 Medications & Allergies - Medications Allergies/Adverse Reactions: Allergies haloperidol [From Haldol] Adverse Reaction (Verified 03/13/18 12:10) Unknown haloperidol lactate [From Haldol] Adverse Reaction (Verified 03/13/18 12:10) Unknown Home Medications: Home Medications Medication Instructions Recorded Confirmed Last Taken Type risperiDONE [RisperDAL] 1 mg PO QAM 03/13/18 02/21/19 Unknown History Sertraline [Zoloft] 100 mg PO QDAY 08/26/18 02/21/19 Unknown History Polyethylene Glycol 3350 [Miralax 17 gm PO QDAY #30 packet 11/05/18 02/21/19 Unknown Rx 3350] Aspirin EC [Halfprin EC] 81 mg PO DAILY #30 11/19/18 02/21/19 Unknown Rx Docusate Sodium [Colace CAP] 100 mg PO BID #60 11/19/18 02/21/19 Unknown Rx Folic Acid [Folvite] 1 mg PO DAILY #30 tab 11/19/18 02/21/19 Unknown Rx Famotidine [Pepcid] 20 mg PO DAILY tablet 12/08/18 02/21/19 Unknown Rx Gabapentin [Neurontin] 100 mg PO QHS capsule 12/08/18 02/21/19 Unknown Rx Metoprolol [Lopressor TAB] 50 mg PO BID 30 Days tablet 12/08/18 02/21/19 Unknown Rx Sevelamer Carbonate [Renvela] 800 mg PO TIDWM tablet 12/08/18 02/21/19 Unknown Rx hydrALAZINE [Apresoline TAB] 100 mg PO Q8HR #120 tablet 12/08/18 02/21/19 Unknown Rx Acetaminophen [Acetaminophen TAB] 650 mg PO Q12H PRN 12/15/18 02/21/19 Unknown History Glucagon,Human Recombinant 1 mg IJ Q15MIN PRN 12/15/18 02/21/19 Unknown History [Glucagon Emergency Kit] Insulin Aspart [NovoLOG 100 See Protocol SQ QWEEK 12/15/18 02/21/19 Unknown History UNITS/ML VIAL] Active Medications: Generic Name Dose Route Start Last Admin Trade Name Freq PRN Reason Stop Dose Admin Albuterol/Ipratropium 1 ampul 02/24/19 20:00 04/06/19 09:31 Duoneb *Not For Prn Use* IH 1 ampul TIDRT SANCHEZ Administration Lipase/Protease/Amylase 1 each 03/05/19 14:04 04/02/19 21:34 Pancreaze 10,500 Unit FEEDTUBE 1 each PRN PRN Administration For Clogged Feeding Tube Epoetin Solitario 20,000 unit 03/24/19 11:17 04/03/19 21:15 Procrit IV 20,000 unit UMA PRN Administration hemodialysis Famotidine 20 mg 02/23/19 10:00 04/05/19 10:00 Pepcid PO 20 mg DAILY SANCHEZ Administration Hydrophilic Ointment 1 applic 02/21/19 18:24 03/05/19 08:16 Vaseline Lip Therapy TP 1 applic Q2HR PRN Administration Dry Lips Sodium Chloride 100 mls @ 999 mls/hr 02/26/19 09:00 Nacl 0.9% IV UMA PRN Hypotension Insulin Human Regular 0 units 02/26/19 12:00 04/06/19 05:28 Humulin R SUB-Q Not Given Q6HR [facility] Protocol Metoprolol Tartrate 2.5 mg 02/28/19 12:06 03/15/19 05:15 Lopressor IV 2.5 mg Q4HR PRN Administration Tachycardia Multi-Ingred Cream/Lotion/Oil/Oint 1 applic 02/21/19 18:24 03/29/19 21:40 Artificial Tears Ophth Oint OU 1 applic Q4HR PRN Administration Dry Eye(s) Risperidone 1 mg 02/25/19 13:00 04/05/19 10:00 Risperdal PO 1 mg DAILY SANCHEZ Administration Scopolamine 1 each 03/13/19 04:00 04/06/19 05:37 Transderm-Scop TD 1 each Q3D SANCHEZ Administration Sertraline HCl 100 mg 02/25/19 13:00 04/05/19 10:00 Zoloft PO 100 mg DAILY SANCHEZ Administration Sodium Hypochlorite 1 applic 04/01/19 13:00 04/05/19 22:17 Dakin's Half Strength TP 1 applicatio BID SANCHEZ Administration
[2019-04-06] MEDS: SODIUM HYPOCHLORITE, DAKIN'S 1/2 STRENGTH (0.25%) 473 ML TOPICAL SOLN TP SCH ×2 (12:00→21:23)
--- NOTE | 2019-04-06 12:22 | Progress Note ---
Assessment and Plan Assessment and plan: Patient is 63-year-old -[place] male patient from [facility] with multiple co-morbidities including blindness, CVA, CHF, PPM/ICD, loop recorder since 2012 that is MRI compatible, IDDM type 2, sepsis left foot ulcer, afib, ESRD with complications on HD TTS, hypertension, AOCD and GERD who presented to the ED with hypotensive after intubation in the emergency room. diagnosed with fluid overload, pleural effusion. Patient has had recurrent admission in the hospital for similar reason and was recently discharged from the hospital following treatment of Severe Sepsis due to Necrotizing Unstagable sacral decubitus ulcer with ostemomylitis, has received multiple courses of broad spectrum abx. Acute hypoxic respiratory failure, status post intubation and ventilatory support, now off vent, on T-piece - Acute respiratory failure on mechanical ventilator >96 hrs Extubated ; history of tracheostomy on T piece With Current management , nebulizers, Currently on trach/peg placed on 03/03. cont oxygen supplement, improving, on t piece, nebulizers, pulmonary critical following - Acute on chronic systolic CHF/ Acute pulmonary edema, HD per schedule - Dilated CMP, EF 35-40% Continue diuresis, supportive care - Acute metabolic encephalopathy, resolved, has baseline Dementia. -ESRD on hemodialysis per schedule nephrology following, for fistulogram tomorrow -Bilateral pneumonia with some small pleural effusions Continue with IV antibiotics improved with HD -Permanent atrial fibrillation and flutter and hypercoaguable state Not on anticoagulation because of anemia thrombocytopenia rate control meds optimized -Diabetes mellitus type 2 Accu-Chek sliding scale coverage Insulin as needed -Schizophrenia:stable -Legally blind, supportive care -hypertension, Monitor BP,'s adjust medications as needed -Hypokalemia; corrected -Pulmonary hypertension; continue current management -Dysphagia s/p PEG tube; PEG tubes per protocol -Sacral decub ulcer; Wound care --Severe malnutrition /hypoalbuminemia with FTT: 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, chemical maker following PEG placed on 01/02/19 --Multiple decubiti, different stages , s/ p colostomy Left 5th finger, stage 4 pressure ulcer Left heel, deep tissue injury Sacrum, stage 4 pressure ulcer POA Continue wound care --History of sacral osteomyelitis and LE ulcers Completed Antibiotics, contact isolation for ESBL Klebsiella pneumonia on wound culture 01/02/19 --Anemia of chronic disease s/p 1 unit of prbc , stable --RUL atelectasis, probably mucous plugging --DVT prophylaxis; Lovenox - COD status; DNR --Very poor prognosis Dispo; Awaiting SNF placement , difficult to place ,unable to find any NH to take patient. inpatient hospice was recommended, but family is not agreeable at this time. DNR/DNI History Interval history: no fevers remains demented no vomiting, no agitation, no seizures Hospitalist Physical - Physical exam Narrative exam: Constitutional: no acute distress, opens eyes, says hello Eyes: non-icteric ENT: oropharynx moist Neck: supple Effort: normal Ascultation: Bilateral: other (coarse BS bilaterally) Percussion: Bilateral: not dull Cardiovascular: regular rate and rhythm (no mrg) Gastrointestinal: normoactive bowel sounds, soft, non-tender, non-distended, other (ostomy in place, brown stool) Extremities: no cyanosis, no edema, pink and warm Neurologic: other (mild weakness LUE, o/w nonfocal), demented Psychiatric: other (unable to assess) SKIN; Left 5th finger, stage 4 pressure ulcer,Left heel, deep tissue injury, Sacrum, stage 4 pressure ulcer POA - Constitutional Vitals: Temp Pulse Resp BP Pulse Ox 98.2 F 74 18 120/60 94 04/06/19 11:56 04/06/19 11:56 04/06/19 11:56 04/06/19 11:56 04/06/19 11:56 General appearance: Present: no acute distress, well-nourished, other (trache ostomy on T piece) Results - Labs CBC & Chem 7: 03/31/19 10:26 03/31/19 10:26 Labs: Laboratory Last Values WBC 8.3 K/mm3 (4.5-11.0) 03/31/19 10:26 RBC 3.01 M/mm3 (3.65-5.03) L 03/31/19 10:26 Hgb 8.2 gm/dl (11.8-15.2) L 03/31/19 10:26 Hct 26.4 % (35.5-45.6) L 03/31/19 10:26 MCV 88 fl (84-94) 03/31/19 10:26 MCH 27 pg (28-32) L 03/31/19 10: MCHC 31 % (32-34) L 03/31/19 10: RDW 20.3 % (13.2-15.2) H 03/31/19 10: Plt Count 361 K/mm3 (140-440) 03/31/19 10: Lymph % (Auto) 13.3 % (13.4-35.0) L 03/31/19 10: [place] % (Auto) 6.5 % (0.0-7.3) 03/31/19 10: Eos % (Auto) 7.2 % (0.0-4.3) H 03/31/19 10: Baso % (Auto) 0.9 % (0.0-1.8) 03/31/19 10: Lymph # 1.1 K/mm3 (1.2-5.4) L 03/31/19 10: [place] # 0.5 K/mm3 (0.0-0.8) 03/31/19 10: Eos # 0.6 K/mm3 (0.0-0.4) H 03/31/19 10: Baso # 0.1 K/mm3 (0.0-0.1) 03/31/19 10: Add Manual Diff Complete 03/21/19 06:30 Total Counted 100 03/21/19 06:30 Seg Neutrophils % 72.1 % (40.0-70.0) H 03/31/19 10:26 Seg Neuts % (Manual) 81.0 % (40.0-70.0) H 03/21/19 06:30 0 % 03/21/19 06:30 8.0 % (13.4-35.0) L 03/21/19 06:30 Reactive Lymphs % (Man) 0 % 03/21/19 06:30 1.0 % (0.0-7.3) 03/21/19 06:30 8.0 % (0.0-4.3) H 03/21/19 06:30 1.0 % (0.0-1.8) 03/21/19 06:30 1.0 % 03/21/19 06:30 0 % 03/21/19 06:30 0 % 03/21/19 06:30 0 % 03/21/19 06:30 Nucleated RBC % Not Reportable 03/21/19 06:30 Seg Neutrophils # 6.0 K/mm3 (1.8-7.7) 03/31/19 10:26 Seg Neutrophils # Man 6.7 K/mm3 (1.8-7.7) 03/21/19 06:30 Band Neutrophils # 0.0 K/mm3 03/21/19 06:30 0.7 K/mm3 (1.2-5.4) L 03/21/19 06:30 Abs React Lymphs (Man) 0.0 K/mm3 03/21/19 06:30 0.1 K/mm3 (0.0-0.8) 03/21/19 06:30 0.7 K/mm3 (0.0-0.4) H 03/21/19 06:30 0.1 K/mm3 (0.0-0.1) 03/21/19 06:30 0.1 K/mm3 03/21/19 06:30 0.0 K/mm3 03/21/19 06:30 0.0 K/mm3 03/21/19 06:30 Blast Cells # 0.0 K/mm3 03/21/19 06:30 WBC Morphology Not Reportable 03/21/19 06:30 Hypersegmented Neuts Not Reportable 03/21/19 06:30 Hyposegmented Neuts Not Reportable 03/21/19 06:30 Hypogranular Neuts Not Reportable 03/21/19 06:30 Not Reportable 03/21/19 06:30 Not Reportable 03/21/19 06:30 Not Reportable 03/21/19 06:30 Not Reportable 03/21/19 06:30 Not Reportable 03/21/19 06:30 Not Reportable 03/21/19 06:30 Consistent w auto 03/21/19 06:30 Not Reportable 03/21/19 06:30 Plt Clumps, EDTA Not Reportable 03/21/19 06:30 Not Reportable 03/21/19 06:30 Not Reportable 03/21/19 06:30 Not Reportable 03/21/19 06:30 Plt Morphology Comment Not Reportable 03/21/19 06:30 RBC Morphology Not Reportable 03/21/19 06:30 Dimorphic RBCs Not Reportable 03/21/19 06:30 Not Reportable 03/21/19 06:30 Few 03/21/19 06:30 Few 03/21/19 06:30 Few 03/21/19 06:30 Not Reportable 03/21/19 06:30 Not Reportable 03/21/19 06:30 Not Reportable 03/21/19 06:30 Not Reportable 03/21/19 06:30 Not Reportable 03/21/19 06:30 1+ 03/21/19 06:30 Not Reportable 03/21/19 06:30 Few 03/21/19 06:30 Not Reportable 03/21/19 06:30 Not Reportable 03/21/19 06:30 Not Reportable 03/21/19 06:30 Not Reportable 03/21/19 06:30 Not Reportable 03/21/19 06:30 Not Reportable 03/21/19 06:30 Not Reportable 03/21/19 06:30 Acanthocytes (Spur) Not Reportable 03/21/19 06:30 Rouleaux Not Reportable 03/21/19 06:30 Not Reportable 03/21/19 06:30 Not Reportable 03/21/19 06:30 Not Reportable 03/21/19 06:30 Not Reportable 03/21/19 06:30 Hem Pathologist Commnt No 03/21/19 06:30 PT 16.3 Sec. (12.2-14.9) H 03/01/19 09:39 INR 1.35 (0.87-1.13) H 03/01/19 09:39 APTT 33.7 Sec. (24.2-36.6) 02/21/19 18:30 2987.82 ng/mlDDU (0-234) H 02/22/19 05:54 POC ABG pH 7.510 (7.35-7.45) H 03/18/19 06:38 ABG pH 7.424 pH Units (7.350-7.450) 03/19/19 04:23 POC ABG pCO2 38.9 (35-45) 03/18/19 06:38 ABG pCO2 48.0 mm Hg 03/19/19 04:23 POC ABG pO2 164 (80-105) H 03/18/19 06:38 ABG pO2 78.3 mm Hg (80.0-90.0) L 03/19/19 04:23 POC ABG HCO3 31.0 (22-26 mml/L) 03/18/19 06:38 ABG HCO3 30.7 mmol/L (20.0-26.0) H 03/19/19 04:23 POC ABG Total CO2 32 (23-27mmol/L) 03/18/19 06:38 POC ABG O2 Sat 100 03/18/19 06:38 ABG O2 Saturation 97.0 % (95.0-99.0) 03/19/19 04:23 ABG O2 Content 7.9 (0.0-44) 03/19/19 04:23 POC ABG Base Excess 8 ((-2) - (+3)mmol/L) 03/18/19 06:38 ABG Base Excess 5.8 mmol/L (-2.0-3.0) H 03/19/19 04:23 ABG Hemoglobin 5.8 gm/dl (14.0-18.0) L 03/19/19 04:23 ABG Carboxyhemoglobin 2.0 % (0.0-5.0) 03/19/19 04:23 ABG Methemoglobin 0.4 % (0.0-1.5) 03/19/19 04:23 94.6 % (95.0-99.0) L 03/19/19 04:23 35 % 03/19/19 04:23 Sodium 143 mmol/L (137-145) 03/31/19 10:26 Potassium 4.1 mmol/L (3.6-5.0) 03/31/19 10:26 Chloride 96.9 mmol/L (98-107) L 03/31/19 10:26 Carbon Dioxide 33 mmol/L (22-30) H 03/31/19 10:26 17 mmol/L 03/31/19 10:26 BUN 37 mg/dL (9-20) H 03/31/19 10:26 2.4 mg/dL (0.8-1.5) H 03/31/19 10:26 Estimated GFR 33 ml/min 03/31/19 10:26 15 % 03/31/19 10:26 Glucose 86 mg/dL (75-100) 03/31/19 10:26 POC Glucose 93 (70-105) 04/06/19 12:02 Lactic Acid 1.00 mmol/L (0.7-2.0) 02/21/19 20:58 Calcium 10.3 mg/dL (8.4-10.2) H 03/31/19 10:26 Phosphorus 4.30 mg/dL (2.5-4.5) D 03/31/19 10:26 Magnesium 2.70 mg/dL (1.7-2.3) H 03/30/19 10:13 0.20 mg/dL (0.1-1.2) 03/30/19 10:13 AST 16 units/L (5-40) 03/30/19 10:13 ALT 11 units/L (7-56) 03/30/19 10:13 185 units/L (35-129) H 03/30/19 10:13 28.0 umol/L (25-60) 02/21/19 20:04 64 units/L (55-170) 02/22/19 03:42 CK-MB (CK-2) 3.7 ng/mL (0.0-4.0) 02/22/19 03:42 CK-MB (CK-2) Rel Index 5.7 (0-4) H 02/22/19 03:42 0.193 ng/mL (0.00-0.029) H* 02/22/19 03:42 6.9 g/dL (6.3-8.2) 03/30/19 10:13 2.6 g/dL (3.9-5) L 03/30/19 10:13 0.6 % 03/30/19 10:13 Triglycerides 51 mg/dL (2-149) 02/21/19 18:30 Cholesterol 82 mg/dL (50-199) 02/21/19 18:30 36 mg/dL (50-130) L 02/21/19 18:30 40 mg/dL (40-59) 02/21/19 18:30 2.05 % 02/21/19 18:30 TSH 2.760 mlU/mL (0.270-4.200) 02/21/19 20:04 PTH Intact 267.6 pg/mL (15-65) H 03/02/19 05:15 Salicylates < 0.3 mg/dL (2.8-20.0) L 02/21/19 20:04 Acetaminophen < 5.0 ug/mL (10.0-30.0) L 02/21/19 20:04 Hepatitis A IgM Ab Non-reactive (NonReactive) 03/31/19 22:56 Hep Bs Antigen Non-reactive (Negative) 03/31/19 22:56 Hep B Core IgM Ab Non-reactive (NonReactive) 03/31/19 22:56 Non-reactive (NonReactive) 03/31/19 22:56 Blood Type O POSITIVE 03/22/19 08:48 Antibody Screen Negative 03/22/19 08:48 Crossmatch See Detail 03/22/19 08:48 Active Medications - Current Medications Current Medications: Generic Name Dose Route Start Last Admin Trade Name Freq PRN Reason Stop Dose Admin Albuterol/Ipratropium 1 ampul 02/24/19 20:00 04/06/19 09:31 Duoneb *Not For Prn Use* IH 1 ampul TIDRT SANCHEZ Administration Lipase/Protease/Amylase 1 each 03/05/19 14:04 04/02/19 21:[address] 10,500 Unit FEEDTUBE 1 each PRN PRN Administration For Clogged Feeding Tube Epoetin Solitario 20,000 unit 03/24/19 11:17 04/03/19 21:15 Procrit IV 20,000 unit UMA PRN Administration hemodialysis Famotidine 20 mg 02/23/19 10:00 04/05/19 10:00 Pepcid PO 20 mg DAILY SANCHEZ Administration Hydrophilic Ointment 1 applic 02/21/19 18:24 03/05/19 08:16 Vaseline Lip Therapy TP 1 applic Q2HR PRN Administration Dry Lips Sodium Chloride 100 mls @ 999 mls/hr 02/26/19 09:00 Nacl 0.9% IV UMA PRN Hypotension Insulin Human Regular 0 units 02/26/19 12:00 04/06/19 05:28 Humulin R SUB-Q Not Given Q6HR [facility] Protocol Metoprolol Tartrate 2.5 mg 02/28/19 12:06 03/15/19 05:15 Lopressor IV 2.5 mg Q4HR PRN Administration Tachycardia Multi-Ingred Cream/Lotion/Oil/Oint 1 applic 02/21/19 18:24 03/29/19 21:40 Artificial Tears Ophth Oint OU 1 applic Q4HR PRN Administration Dry Eye(s) Risperidone 1 mg 02/25/19 13:00 04/05/19 10:00 Risperdal PO 1 mg DAILY SANCHEZ Administration Scopolamine 1 each 03/13/19 04:00 04/06/19 05:37 Transderm-Scop TD 1 each Q3D SANCHEZ Administration Sertraline HCl 100 mg 02/25/19 13:00 04/05/19 10:00 Zoloft PO 100 mg DAILY SANCHEZ Administration Sodium Hypochlorite 1 applic 04/01/19 13:00 04/05/19 22:17 Dakin's Half Strength TP 1 applicatio BID SANCHEZ Administration Nutrition/Malnutrition Assess - Dietary Evaluation Nutrition/Malnutrition Findings: Nutrition Notes Start: 02/22/19 12:51 Freq: Status: Active Protocol: Document 04/03/19 12:20 RS (Rec: 04/03/19 12:27 RS [id number]) Co-Sign 04/03/19 12:20 LP Nutrition Notes Initial or Follow up Reassessment Current Diagnosis Diabetes,Hypertension Other Pertinent Diagnosis Sacral PU, ESRD on HD (T/Thurs /Sat), Schizophrenia,Blind in L eye,S/P trach Current Diet Nepro with Carbsteady 1.8 at 50 ml/hr Labs/Tests Reviewed Pertinent Medications Reviewed Height 5 ft 10 in Weight 74.7 kg [place] Body Weight (kg) 75.45 BMI 23.6 Subjective/Other Information Nepro running at 50 ml/hr at time of visit. Pt is tolerating TF. Percent of energy/protein needs met: 96%/100% Burn Absent Trauma Absent #2 Nutrition Diagnosis Increased nutrient needs ( specify in comment below) Diagnosis Progress(for reassessment Continues documentation) #1 Nutrition Diagnosis Inadequate oral intake Diagnosis Progress(for reassessment Continues documentation) Is patient on ventilator? No Is Patient Ambulatory and/or Out of Bed No REE-([facility]-confined to bed) 1857.144 Kcal/Kg value to use for calculation 30 Approximate Energy Requirements Using 2241 kcal/Kg Calculation Used for Recommendations Kcal/kg Additional Notes Protein Needs: 90-112g (1.2-1. 5g/kg) Fluid Needs: 1-1.5 L/day Nutrition Intervention Change Diet Order: Continue TF Nutrition Support: Nepro with Carbsteady 1.8 at 50 ml/hr Flush 200 ml q4hr Kcal 2,160 Protein (gm) 97 Fluid (mL) 872 Add Supplement/Snack (indicate name/kcal Abhilash BID /protein ) Provides kCal: 190 Provides Protein (gm) 5 Goal #1 TF tolerance Goal #2 Continue to meet at least 80% of calorie and protein needs via TF Anticipated Discharge Needs: TF Follow-Up By: 04/10/19 Additional Comments F/U for new TF rate/tolerance
--- NOTE | 2019-04-06 12:45 | Event Note ---
Date: 04/06/19 Contact NOK who requests we proceed with fistulogram. Plan for NPO after MN except meds with fistulogram tomorrow.
[2019-04-06] MEDS: risperiDONE 1 MG TAB PO SCH (13:21)
[2019-04-06] MEDS: SERTRALINE 100 MG TAB PO SCH (13:21)
[2019-04-06] MEDS: FAMOTIDINE 20 MG TAB PO SCH (13:21)
[2019-04-07] MEDS: INSULIN REGULAR, HUMAN 100 UNITS/1 ML SUB-Q SCH ×5 (07:00→21:49)
[2019-04-07] MEDS: IPRATROPIUM/ALBUTEROL SULFATE 3 ML AMPUL.NEB IH SCH ×3 (07:26→20:36)
[2019-04-07] MEDS ORDERED: MIDAZOLAM 2 MG/2 ML INJ ONE (08:15)
[2019-04-07] MEDS ORDERED: fentaNYL 100 MCG/2 ML INJ ONE (08:15)
[2019-04-07] MEDS ORDERED: HEPARIN/NS 5000 UNIT/500ML 500 ML IR ONE (08:16)
[2019-04-07] MEDS ORDERED: HEPARIN 10,000 UNITS/10 ML VIAL ONE (08:16)
[2019-04-07] MEDS ORDERED: LIDOCAINE 1%/EPINEPHRINE 1:100,000 VIAL (20 ML) INFILTRATI ONE (08:16)
[2019-04-07] MEDS ORDERED: SODIUM CHLORIDE 0.9% 250ML 250 ML ONE (08:17)
--- NOTE | 2019-04-07 09:44 | Operative Report ---
Operative Report Operative Report: EXAM: Ultrasound guided access of the left arm AV brachial axillary graft Placement of a sheath towards the venous outflow Fistulogram Peripheral subclavian vein venoplasty with a 10 mm x 4 cm angioplasty balloon Venous anastomosis venoplasty with a 10 mm x 4 cm angioplasty balloon DATE: 04/07/19 PEANUT ROASTER: MIRANDA BHANDARI MD INDICATION: End-stage renal disease with AV graft malfunction MEDICATIONS: Please see nursing report for full details. DEVICES: 10 mm x 4 cm angioplasty balloon PROCEDURE: The risks, benefits, and alternatives of the procedure were discussed and written informed consent was obtained. The patient was transported in stable condition to the angiography suite. The patient's left arm AV graft was assessed by ultrasound and was patent. The patient was prepped and draped in a sterile fashion. Under ultrasound guidance, the left arm AV graft was accessed with a 21-gauge micropuncture needle. The area was anesthetized prior to access. 0.018 inch wire was advanced through the micropuncture needle into the fistula and then the needle was exchanged for a 5 Macanese transitional dilator. The inner dilator and wire were removed and a 0.035 inch wire was advanced through the venous outflow. The transitional dilator was exchanged for a 6 Macanese short sheath. Fistulogram was performed of the venous outflow and central veins. Reflux into the arterial anastomosis was performed. Digital subtraction angiography demonstrated that the midportion of the graft was aneurysmal with the arterial anastomosis being patent and the venous anastomosis having a high degree of tortuosity with some mild narrowing due to stent placement in the peripheral and mid axillary vein. The stents in the peripheral and mid axillary vein are patent. The peripheral subclavian vein has 95% narrowing. The rest of the central veins are patent. The brachial artery proximal and distal to the anastomosis is patent. 10 mm x 4 cm angioplasty balloon was used to perform angioplasty of the peripheral subclavian vein. Angioplasty was then performed at the venous anastomosis with a 10 mm x 4 cm angioplasty balloon. Digital subtraction angiography demonstrated less than 20% residual narrowing of the venous anastomosis and subclavian vein. The AV access previously had pulsatility, and now had a thrill. The wire was removed and the site was closed with a 3-0 Vicryl suture. The sheath was then removed. Hemostasis was achieved with slight manual compression. The patient was transported from the angiography suite to the floor in stable condition. IMPRESSION: 1. Successful central dialysis access angioplasty. 2. Successful peripheral dialysis access angioplasty.
[2019-04-07] MEDS: SERTRALINE 100 MG TAB PO SCH (10:40)
[2019-04-07] MEDS: FAMOTIDINE 20 MG TAB PO SCH (10:40)
[2019-04-07] MEDS: risperiDONE 1 MG TAB PO SCH (10:40)
--- NOTE | 2019-04-07 11:09 | Progress Note ---
Assessment and Plan Assessment: * End stage renal disease (outpatient TTS schedule) * Acute hypoxic respiratory failure s/p trach * KEON pneumonia --Sputum cx: MDR Acinetobacter * Cardiomyopathy - EF 35-40% * Atrial fibrillation * History of CVA * Anemia secondary to ESRD * Secondary hyperparathyroidism Plan * Continue HD via WILFRED AVG * UF as tolerated * Access evaluation today w/ IR * Nutrition per primary team * Dose medications for renal function * Epogen 20k TIW Subjective Date of service: 04/07/19 Principal diagnosis: Respiratory failure, acute on chronic systolic HF, ESRD Interval history: No acute events overnight. Chart reviewed. Objective - Exam Narrative Exam: Patient off the floor at time of visit. Vitals, notes and labs reviewed. - Vital Signs Vital signs: Vital Signs - 12hr 04/07/19 04/07/19 04/07/19 03:40 04:36 07:30 Temperature 99.7 F H Pulse Rate 80 Pulse Rate [ 71 Anterior Bilateral Throughout] Respiratory 20 Rate Respiratory 18 Rate [Anterior Bilateral Throughout] Blood Pressure 124/62 O2 Sat by Pulse 100 Oximetry O2 Sat by Pulse 99 99 Oximetry [ Assessment] 04/07/19 07:32 Temperature Pulse Rate Pulse Rate [ Anterior Bilateral Throughout] Respiratory Rate Respiratory Rate [Anterior Bilateral Throughout] Blood Pressure O2 Sat by Pulse 99 Oximetry O2 Sat by Pulse Oximetry [ Assessment] - Lab 03/31/19 10:26 03/31/19 10:26 Most recent lab results ABG pH 7.424 pH Units (7.350-7.450) 03/19/19 04:23 ABG pCO2 48.0 mm Hg 03/19/19 04:23 ABG pO2 78.3 mm Hg (80.0-90.0) L 03/19/19 04:23 ABG HCO3 30.7 mmol/L (20.0-26.0) H 03/19/19 04:23 ABG O2 Saturation 97.0 % (95.0-99.0) 03/19/19 04:23 Calcium 10.3 mg/dL (8.4-10.2) H 03/31/19 10:26 Phosphorus 4.30 mg/dL (2.5-4.5) D 03/31/19 10:26 Magnesium 2.70 mg/dL (1.7-2.3) H 03/30/19 10:13 Medications & Allergies - Medications Allergies/Adverse Reactions: Allergies haloperidol [From Haldol] Adverse Reaction (Verified 03/13/18 12:10) Unknown haloperidol lactate [From Haldol] Adverse Reaction (Verified 03/13/18 12:10) Unknown Home Medications: Home Medications Medication Instructions Recorded Confirmed Last Taken Type risperiDONE [RisperDAL] 1 mg PO QAM 03/13/18 02/21/19 Unknown History Sertraline [Zoloft] 100 mg PO QDAY 08/26/18 02/21/19 Unknown History Polyethylene Glycol 3350 [Miralax 17 gm PO QDAY #30 packet 11/05/18 02/21/19 Unknown Rx 3350] Aspirin EC [Halfprin EC] 81 mg PO DAILY #30 11/19/18 02/21/19 Unknown Rx Docusate Sodium [Colace CAP] 100 mg PO BID #60 11/19/18 02/21/19 Unknown Rx Folic Acid [Folvite] 1 mg PO DAILY #30 tab 11/19/18 02/21/19 Unknown Rx Famotidine [Pepcid] 20 mg PO DAILY tablet 12/08/18 02/21/19 Unknown Rx Gabapentin [Neurontin] 100 mg PO QHS capsule 12/08/18 02/21/19 Unknown Rx Metoprolol [Lopressor TAB] 50 mg PO BID 30 Days tablet 12/08/18 02/21/19 Unknown Rx Sevelamer Carbonate [Renvela] 800 mg PO TIDWM tablet 12/08/18 02/21/19 Unknown Rx hydrALAZINE [Apresoline TAB] 100 mg PO Q8HR #120 tablet 12/08/18 02/21/19 Unknown Rx Acetaminophen [Acetaminophen TAB] 650 mg PO Q12H PRN 12/15/18 02/21/19 Unknown History Glucagon,Human Recombinant 1 mg IJ Q15MIN PRN 12/15/18 02/21/19 Unknown History [Glucagon Emergency Kit] Insulin Aspart [NovoLOG 100 See Protocol SQ QWEEK 12/15/18 02/21/19 Unknown History UNITS/ML VIAL] Active Medications: Generic Name Dose Route Start Last Admin Trade Name Freq PRN Reason Stop Dose Admin Albuterol/Ipratropium 1 ampul 02/24/19 20:00 04/07/19 07:26 Duoneb *Not For Prn Use* IH 1 ampul TIDRT SANCHEZ Administration Lipase/Protease/Amylase 1 each 03/05/19 14:04 04/02/19 21:34 Pancrejewel Barrientos 10,500 Unit FEEDTUBE 1 each PRN PRN Administration For Clogged Feeding Tube Epoetin Solitario 20,000 unit 03/24/19 11:17 04/03/19 21:15 Procrit IV 20,000 unit UMA PRN Administration hemodialysis Famotidine 20 mg 02/23/19 10:00 04/07/19 10:40 Pepcid PO 20 mg DAILY SANCHEZ Administration Hydrophilic Ointment 1 applic 02/21/19 18:24 03/05/19 08:16 Vaseline Lip Therapy TP 1 applic Q2HR PRN Administration Dry Lips Sodium Chloride 100 mls @ 999 mls/hr 02/26/19 09:00 Nacl 0.9% IV UMA PRN Hypotension Insulin Human Regular 0 units 02/26/19 12:00 04/07/19 07:30 Humulin R SUB-Q Not Given Q6HR [facility] Protocol Metoprolol Tartrate 2.5 mg 02/28/19 12:06 03/15/19 05:15 Lopressor IV 2.5 mg Q4HR PRN Administration Tachycardia Multi-Ingred Cream/Lotion/Oil/Oint 1 applic 02/21/19 18:24 03/29/19 21:40 Artificial Tears Ophth Oint OU 1 applic Q4HR PRN Administration Dry Eye(s) Risperidone 1 mg 02/25/19 13:00 04/07/19 10:40 Risperdal PO 1 mg DAILY SANCHEZ Administration Scopolamine 1 each 03/13/19 04:00 04/06/19 05:37 Transderm-Scop TD 1 each Q3D SANCHEZ Administration Sertraline HCl 100 mg 02/25/19 13:00 04/07/19 10:40 Zoloft PO 100 mg DAILY SANCHEZ Administration Sodium Hypochlorite 1 applic 04/01/19 13:00 04/06/19 21:23 Dakin's Half Strength TP 1 applicatio BID SANCHEZ Administration
--- NOTE | 2019-04-07 11:29 | Progress Note ---
Assessment and Plan Assessment and plan: Patient is 63-year-old -[place] male patient from [facility] with multiple co-morbidities including blindness, CVA, CHF, PPM/ICD, loop recorder since 2012 that is MRI compatible, IDDM type 2, sepsis left foot ulcer, afib, ESRD with complications on HD TTS, hypertension, AOCD and GERD who presented to the ED with hypotensive after intubation in the emergency room. diagnosed with fluid overload, pleural effusion. Patient has had recurrent admission in the hospital for similar reason and was recently discharged from the hospital following treatment of Severe Sepsis due to Necrotizing Unstagable sacral decubitus ulcer with ostemomylitis, has received multiple courses of broad spectrum abx. Acute hypoxic respiratory failure, status post intubation and ventilatory support, now off vent, on T-piece - Acute respiratory failure on mechanical ventilator >96 hrs Extubated ; history of tracheostomy on T piece With Current management , nebulizers, Currently on trach/peg placed on 03/03. cont oxygen supplement, improving, on t piece, nebulizers, pulmonary critical following - Acute on chronic systolic CHF/ Acute pulmonary edema, HD per schedule - Dilated CMP, EF 35-40% Continue diuresis, supportive care - Acute metabolic encephalopathy, resolved, has baseline Dementia. -ESRD on hemodialysis per schedule nephrology following, for fistulogram 04/07 -Bilateral pneumonia with some small pleural effusions Continue with IV antibiotics improved with HD -Permanent atrial fibrillation and flutter and hypercoaguable state Not on anticoagulation because of anemia thrombocytopenia rate control meds optimized -Diabetes mellitus type 2 Accu-Chek sliding scale coverage Insulin as needed -Schizophrenia:stable -Legally blind, supportive care -hypertension, Monitor BP,'s adjust medications as needed -Hypokalemia; corrected -Pulmonary hypertension; continue current management -Dysphagia s/p PEG tube; PEG tubes per protocol -Sacral decub ulcer; Wound care --Severe malnutrition /hypoalbuminemia with FTT: 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, 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 inpatient hospice was recommended, but family is not agreeable at this time. DNR/DNI History Interval history: no fevers remains demented no vomiting, no agitation, no seizures Hospitalist Physical - Physical exam Narrative exam: Constitutional: no acute distress, opens eyes, says hello Eyes: non-icteric ENT: oropharynx moist Neck: supple Effort: normal Ascultation: Bilateral: other (coarse BS bilaterally) Percussion: Bilateral: not dull Cardiovascular: regular rate and rhythm (no mrg) Gastrointestinal: normoactive bowel sounds, soft, non-tender, non-distended, other (ostomy in place, brown stool) Extremities: no cyanosis, no edema, pink and warm Neurologic: other (mild weakness LUE, o/w nonfocal), demented Psychiatric: other (unable to assess) SKIN; Left 5th finger, stage 4 pressure ulcer,Left heel, deep tissue injury, Sacrum, stage 4 pressure ulcer POA - Constitutional Vitals: Temp Pulse Resp BP Pulse Ox 99.7 F H 71 18 124/62 99 04/07/19 03:40 04/07/19 07:30 04/07/19 07:30 04/07/19 03:40 04/07/19 07:32 General appearance: Present: no acute distress, well-nourished, other (tracheostomy on T piece) Results - Labs CBC & Chem 7: 03/31/19 10:26 03/31/19 10:26 Labs: Laboratory Last Values WBC 8.3 K/mm3 (4.5-11.0) 03/31/19 10:26 RBC 3.01 M/mm3 (3.65-5.03) L 03/31/19 10:26 Hgb 8.2 gm/dl (11.8-15.2) L 03/31/19 10:26 Hct 26.4 % (35.5-45.6) L 03/31/19 10:26 MCV 88 fl (84-94) 03/31/19 10:26 MCH 27 pg (28-32) L 03/31/19 10: MCHC 31 % (32-34) L 03/31/19 10: RDW 20.3 % (13.2-15.2) H 03/31/19 10: Plt Count 361 K/mm3 (140-440) 03/31/19 10: Lymph % (Auto) 13.3 % (13.4-35.0) L 03/31/19 10: [place] % (Auto) 6.5 % (0.0-7.3) 03/31/19 10: Eos % (Auto) 7.2 % (0.0-4.3) H 03/31/19 10: Baso % (Auto) 0.9 % (0.0-1.8) 03/31/19 10: Lymph # 1.1 K/mm3 (1.2-5.4) L 03/31/19 10: [place] # 0.5 K/mm3 (0.0-0.8) 03/31/19 10: Eos # 0.6 K/mm3 (0.0-0.4) H 03/31/19 10: Baso # 0.1 K/mm3 (0.0-0.1) 03/31/19 10: Add Manual Diff Complete 03/21/19 06:30 Total Counted 100 03/21/19 06:30 Seg Neutrophils % 72.1 % (40.0-70.0) H 03/31/19 10:26 Seg Neuts % (Manual) 81.0 % (40.0-70.0) H 03/21/19 06:30 0 % 03/21/19 06:30 8.0 % (13.4-35.0) L 03/21/19 06:30 Reactive Lymphs % (Man) 0 % 03/21/19 06:30 1.0 % (0.0-7.3) 03/21/19 06:30 8.0 % (0.0-4.3) H 03/21/19 06:30 1.0 % (0.0-1.8) 03/21/19 06:30 1.0 % 03/21/19 06:30 0 % 03/21/19 06:30 0 % 03/21/19 06:30 0 % 03/21/19 06:30 Nucleated RBC % Not Reportable 03/21/19 06:30 Seg Neutrophils # 6.0 K/mm3 (1.8-7.7) 03/31/19 10:26 Seg Neutrophils # Man 6.7 K/mm3 (1.8-7.7) 03/21/19 06:30 Band Neutrophils # 0.0 K/mm3 03/21/19 06:30 0.7 K/mm3 (1.2-5.4) L 03/21/19 06:30 Abs React Lymphs (Man) 0.0 K/mm3 03/21/19 06:30 0.1 K/mm3 (0.0-0.8) 03/21/19 06:30 0.7 K/mm3 (0.0-0.4) H 03/21/19 06:30 0.1 K/mm3 (0.0-0.1) 03/21/19 06:30 0.1 K/mm3 03/21/19 06:30 0.0 K/mm3 03/21/19 06:30 0.0 K/mm3 03/21/19 06:30 Blast Cells # 0.0 K/mm3 03/21/19 06:30 WBC Morphology Not Reportable 03/21/19 06:30 Hypersegmented Neuts Not Reportable 03/21/19 06:30 Hyposegmented Neuts Not Reportable 03/21/19 06:30 Hypogranular Neuts Not Reportable 03/21/19 06:30 Not Reportable 03/21/19 06:30 Not Reportable 03/21/19 06:30 Not Reportable 03/21/19 06:30 Not Reportable 03/21/19 06:30 Not Reportable 03/21/19 06:30 Not Reportable 03/21/19 06:30 Consistent w auto 03/21/19 06:30 Not Reportable 03/21/19 06:30 Plt Clumps, EDTA Not Reportable 03/21/19 06:30 Not Reportable 03/21/19 06:30 Not Reportable 03/21/19 06:30 Not Reportable 03/21/19 06:30 Plt Morphology Comment Not Reportable 03/21/19 06:30 RBC Morphology Not Reportable 03/21/19 06:30 Dimorphic RBCs Not Reportable 03/21/19 06:30 Not Reportable 03/21/19 06:30 Few 03/21/19 06:30 Few 03/21/19 06:30 Few 03/21/19 06:30 Not Reportable 03/21/19 06:30 Not Reportable 03/21/19 06:30 Not Reportable 03/21/19 06:30 Not Reportable 03/21/19 06:30 Not Reportable 03/21/19 06:30 1+ 03/21/19 06:30 Not Reportable 03/21/19 06:30 Few 03/21/19 06:30 Not Reportable 03/21/19 06:30 Not Reportable 03/21/19 06:30 Not Reportable 03/21/19 06:30 Not Reportable 03/21/19 06:30 Not Reportable 03/21/19 06:30 Not Reportable 03/21/19 06:30 Not Reportable 03/21/19 06:30 Acanthocytes (Spur) Not Reportable 03/21/19 06:30 Rouleaux Not Reportable 03/21/19 06:30 Not Reportable 03/21/19 06:30 Not Reportable 03/21/19 06:30 Not Reportable 03/21/19 06:30 Not Reportable 03/21/19 06:30 Hem Pathologist Commnt No 03/21/19 06:30 PT 16.3 Sec. (12.2-14.9) H 03/01/19 09:39 INR 1.35 (0.87-1.13) H 03/01/19 09:39 APTT 33.7 Sec. (24.2-36.6) 02/21/19 18:30 2987.82 ng/mlDDU (0-234) H 02/22/19 05:54 POC ABG pH 7.510 (7.35-7.45) H 03/18/19 06:38 ABG pH 7.424 pH Units (7.350-7.450) 03/19/19 04:23 POC ABG pCO2 38.9 (35-45) 03/18/19 06:38 ABG pCO2 48.0 mm Hg 03/19/19 04:23 POC ABG pO2 164 (80-105) H 03/18/19 06:38 ABG pO2 78.3 mm Hg (80.0-90.0) L 03/19/19 04:23 POC ABG HCO3 31.0 (22-26 mml/L) 03/18/19 06:38 ABG HCO3 30.7 mmol/L (20.0-26.0) H 03/19/19 04:23 POC ABG Total CO2 32 (23-27mmol/L) 03/18/19 06:38 POC ABG O2 Sat 100 03/18/19 06:38 ABG O2 Saturation 97.0 % (95.0-99.0) 03/19/19 04:23 ABG O2 Content 7.9 (0.0-44) 03/19/19 04:23 POC ABG Base Excess 8 ((-2) - (+3)mmol/L) 03/18/19 06:38 ABG Base Excess 5.8 mmol/L (-2.0-3.0) H 03/19/19 04:23 ABG Hemoglobin 5.8 gm/dl (14.0-18.0) L 03/19/19 04:23 ABG Carboxyhemoglobin 2.0 % (0.0-5.0) 03/19/19 04:23 ABG Methemoglobin 0.4 % (0.0-1.5) 03/19/19 04:23 94.6 % (95.0-99.0) L 03/19/19 04:23 35 % 03/19/19 04:23 Sodium 143 mmol/L (137-145) 03/31/19 10:26 Potassium 4.1 mmol/L (3.6-5.0) 03/31/19 10:26 Chloride 96.9 mmol/L (98-107) L 03/31/19 10:26 Carbon Dioxide 33 mmol/L (22-30) H 03/31/19 10:26 17 mmol/L 03/31/19 10:26 BUN 37 mg/dL (9-20) H 03/31/19 10:26 2.4 mg/dL (0.8-1.5) H 03/31/19 10:26 Estimated GFR 33 ml/min 03/31/19 10:26 15 % 03/31/19 10:26 Glucose 86 mg/dL (75-100) 03/31/19 10:26 POC Glucose 96 (70-105) 04/07/19 05:36 Lactic Acid 1.00 mmol/L (0.7-2.0) 02/21/19 20:58 Calcium 10.3 mg/dL (8.4-10.2) H 03/31/19 10:26 Phosphorus 4.30 mg/dL (2.5-4.5) D 03/31/19 10:26 Magnesium 2.70 mg/dL (1.7-2.3) H 03/30/19 10:13 0.20 mg/dL (0.1-1.2) 03/30/19 10:13 AST 16 units/L (5-40) 03/30/19 10:13 ALT 11 units/L (7-56) 03/30/19 10:13 185 units/L (35-129) H 03/30/19 10:13 28.0 umol/L (25-60) 02/21/19 20:04 64 units/L (55-170) 02/22/19 03:42 CK-MB (CK-2) 3.7 ng/mL (0.0-4.0) 02/22/19 03:42 CK-MB (CK-2) Rel Index 5.7 (0-4) H 02/22/19 03:42 0.193 ng/mL (0.00-0.029) H* 02/22/19 03:42 6.9 g/dL (6.3-8.2) 03/30/19 10:13 2.6 g/dL (3.9-5) L 03/30/19 10:13 0.6 % 03/30/19 10:13 Triglycerides 51 mg/dL (2-149) 02/21/19 18:30 Cholesterol 82 mg/dL (50-199) 02/21/19 18:30 36 mg/dL (50-130) L 02/21/19 18:30 40 mg/dL (40-59) 02/21/19 18:30 2.05 % 02/21/19 18:30 TSH 2.760 mlU/mL (0.270-4.200) 02/21/19 20:04 PTH Intact 267.6 pg/mL (15-65) H 03/02/19 05:15 Salicylates < 0.3 mg/dL (2.8-20.0) L 02/21/19 20:04 Acetaminophen < 5.0 ug/mL (10.0-30.0) L 02/21/19 20:04 Hepatitis A IgM Ab Non-reactive (NonReactive) 03/31/19 22:56 Hep Bs Antigen Non-reactive (Negative) 03/31/19 22:56 Hep B Core IgM Ab Non-reactive (NonReactive) 03/31/19 22:56 Non-reactive (NonReactive) 03/31/19 22:56 Blood Type O POSITIVE 03/22/19 08:48 Antibody Screen Negative 03/22/19 08:48 Crossmatch See Detail 03/22/19 08:48 Active Medications - Current Medications Current Medications: Generic Name Dose Route Start Last Admin Trade Name Freq PRN Reason Stop Dose Admin Albuterol/Ipratropium 1 ampul 02/24/19 20:00 04/07/19 07:26 Duoneb *Not For Prn Use* IH 1 ampul TIDRT SANCHEZ Administration Lipase/Protease/Amylase 1 each 03/05/19 14:04 04/02/19 21:[address] 10,500 Unit FEEDTUBE 1 each PRN PRN Administration For Clogged Feeding Tube Epoetin Solitario 20,000 unit 03/24/19 11:17 04/03/19 21:15 Procrit IV 20,000 unit UMA PRN Administration hemodialysis Famotidine 20 mg 02/23/19 10:00 04/07/19 10:40 Pepcid PO 20 mg DAILY SANCHEZ Administration Hydrophilic Ointment 1 applic 02/21/19 18:24 03/05/19 08:16 Vaseline Lip Therapy TP 1 applic Q2HR PRN Administration Dry Lips Sodium Chloride 100 mls @ 999 mls/hr 02/26/19 09:00 Nacl 0.9% IV UMA PRN Hypotension Insulin Human Regular 0 units 02/26/19 12:00 04/07/19 07:30 Humulin R SUB-Q Not Given Q6HR [facility] Protocol Metoprolol Tartrate 2.5 mg 02/28/19 12:06 03/15/19 05:15 Lopressor IV 2.5 mg Q4HR PRN Administration Tachycardia Multi-Ingred Cream/Lotion/Oil/Oint 1 applic 02/21/19 18:24 03/29/19 21:40 Artificial Tears Ophth Oint OU 1 applic Q4HR PRN Administration Dry Eye(s) Risperidone 1 mg 02/25/19 13:00 04/07/19 10:40 Risperdal PO 1 mg DAILY SANCHEZ Administration Scopolamine 1 each 03/13/19 04:00 04/06/19 05:37 Transderm-Scop TD 1 each Q3D SANCHEZ Administration Sertraline HCl 100 mg 02/25/19 13:00 04/07/19 10:40 Zoloft PO 100 mg DAILY SANCHEZ Administration Sodium Hypochlorite 1 applic 04/01/19 13:00 04/06/19 21:23 Dakin's Half Strength TP 1 applicatio BID SANCHEZ Administration Nutrition/Malnutrition Assess - Dietary Evaluation Nutrition/Malnutrition Findings: Nutrition Notes Start: 02/22/19 12:51 Freq: Status: Active Protocol: Document 04/03/19 12:20 RS (Rec: 04/03/19 12:27 RS [id number]) Co-Sign 04/03/19 12:20 LP Nutrition Notes Initial or Follow up Reassessment Current Diagnosis Diabetes,Hypertension Other Pertinent Diagnosis Sacral PU, ESRD on HD (T/Thurs /Sat), Schizophrenia,Blind in L eye,S/P trach Current Diet Nepro with Carbsteady 1.8 at 50 ml/hr Labs/Tests Reviewed Pertinent Medications Reviewed Height 5 ft 10 in Weight 74.7 kg [place] Body Weight (kg) 75.45 BMI 23.6 Subjective/Other Information Nepro running at 50 ml/hr at time of visit. Pt is tolerating TF. Percent of energy/protein needs met: 96%/100% Burn Absent Trauma Absent #2 Nutrition Diagnosis Increased nutrient needs ( specify in comment below) Diagnosis Progress(for reassessment Continues documentation) #1 Nutrition Diagnosis Inadequate oral intake Diagnosis Progress(for reassessment Continues documentation) Is patient on ventilator? No Is Patient Ambulatory and/or Out of Bed No REE-([facility]-confined to bed) 1857.144 Kcal/Kg value to use for calculation 30 Approximate Energy Requirements Using 2241 kcal/Kg Calculation Used for Recommendations Kcal/kg Additional Notes Protein Needs: 90-112g (1.2-1. 5g/kg) Fluid Needs: 1-1.5 L/day Nutrition Intervention Change Diet Order: Continue TF Nutrition Support: Nepro with Carbsteady 1.8 at 50 ml/hr Flush 200 ml q4hr Kcal 2,160 Protein (gm) 97 Fluid (mL) 872 Add Supplement/Snack (indicate name/kcal Abhilash BID /protein ) Provides kCal: 190 Provides Protein (gm) 5 Goal #1 TF tolerance Goal #2 Continue to meet at least 80% of calorie and protein needs via TF Anticipated Discharge Needs: TF Follow-Up By: 04/10/19 Additional Comments F/U for new TF rate/tolerance
--- NOTE | 2019-04-07 13:21 | Progress Note ---
Assessment and Plan 63 y/o male with multiple medical issues admitted with altered mental status, acute respiratory failure requiring mechanical ventilation No new recommendations for today. Please see below. 1. Finished therapy for Acinetobacter. 2. Continue T-piece 3. HD per renal 4. Awaiting placement. Subjective Date of service: 04/07/19 Principal diagnosis: Respiratory failure, acute on chronic systolic HF, ESRD Interval history: No acute events. Remains on T-piece Objective Vital Signs - 12hr 04/07/19 04/07/19 04/07/19 03:40 04:36 07:30 Temperature 99.7 F H Pulse Rate 80 Pulse Rate [ 71 Anterior Bilateral Throughout] Respiratory 20 Rate Respiratory 18 Rate [Anterior Bilateral Throughout] Blood Pressure 124/62 O2 Sat by Pulse 100 Oximetry O2 Sat by Pulse 99 99 Oximetry [ Assessment] 04/07/19 07:32 Temperature Pulse Rate Pulse Rate [ Anterior Bilateral Throughout] Respiratory Rate Respiratory Rate [Anterior Bilateral Throughout] Blood Pressure O2 Sat by Pulse 99 Oximetry O2 Sat by Pulse Oximetry [ Assessment] Constitutional: no acute distress, alert Eyes: non-icteric ENT: oropharynx moist Neck: supple Effort: normal Ascultation: Bilateral: diminished breath sounds, other (coarse BS bilaterally) Percussion: Bilateral: not dull Cardiovascular: other (tachy, RR; no mrg) Gastrointestinal: normoactive bowel sounds, soft, non-tender, non-distended, other (ostomy in place, brown stool) Extremities: no cyanosis, no edema, pink and warm Neurologic: other (mild weakness LUE, o/w nonfocal) Psychiatric: other (unable to assess) CBC and BMP: 03/31/19 10:26 03/31/19 10:26 ABG, PT/INR, D-dimer: ABG POC ABG pH 7.510 (7.35-7.45) H 03/18/19 06:38 ABG pH 7.424 pH Units (7.350-7.450) 03/19/19 04:23 POC ABG pCO2 38.9 (35-45) 03/18/19 06:38 ABG pCO2 48.0 mm Hg 03/19/19 04:23 POC ABG pO2 164 (80-105) H 03/18/19 06:38 ABG pO2 78.3 mm Hg (80.0-90.0) L 03/19/19 04:23 POC ABG HCO3 31.0 (22-26 mml/L) 03/18/19 06:38 POC ABG Total CO2 32 (23-27mmol/L) 03/18/19 06:38 POC ABG O2 Sat 100 03/18/19 06:38 ABG O2 Saturation 97.0 % (95.0-99.0) 03/19/19 04:23 PT/INR, D-dimer PT 16.3 Sec. (12.2-14.9) H 03/01/19 09:39 INR 1.35 (0.87-1.13) H 03/01/19 09:39 2987.82 ng/mlDDU (0-234) H 02/22/19 05:54 Abnormal lab findings: Abnormal Labs 02/21/19 02/21/19 02/21/19 18:30 18:30 18:30 WBC RBC 3.26 L Hgb 8.8 L Hct 29.0 L MCH 27 L MCHC 30 L RDW 19.1 H Lymph % (Auto) 6.1 L [place] % (Auto) Eos % (Auto) Lymph # 0.4 L [place] # Eos # Seg Neutrophils % 86.2 H Seg Neuts % (Manual) Lymphocytes % (Manual) Eosinophils % (Manual) Seg Neutrophils # Lymphocytes # (Manual) Eosinophils # (Manual) PT INR D-Dimer POC ABG pH POC ABG pCO2 POC ABG pO2 ABG pO2 ABG HCO3 ABG Base Excess ABG Hemoglobin Oxyhemoglobin Sodium 133 L Potassium 3.3 L Chloride 93.1 L Carbon Dioxide 33 H BUN Creatinine Glucose 161 H POC Glucose Calcium Phosphorus Magnesium ALT Alkaline Phosphatase 136 H Total Creatine Kinase 37 L CK-MB (CK-2) Rel Index Troponin T 0.192 H* Albumin 2.4 L LDL Cholesterol Direct 36 L PTH Intact Salicylates Acetaminophen Crossmatch 02/21/19 02/21/19 02/21/19 18:42 20:04 20:04 WBC RBC Hgb Hct MCH MCHC RDW Lymph % (Auto) [place] % (Auto) Eos % (Auto) Lymph # [place] # Eos # Seg Neutrophils % Seg Neuts % (Manual) Lymphocytes % (Manual) Eosinophils % (Manual) Seg Neutrophils # Lymphocytes # (Manual) Eosinophils # (Manual) PT INR D-Dimer POC ABG pH POC ABG pCO2 56.7 H POC ABG pO2 291 H ABG pO2 ABG HCO3 ABG Base Excess ABG Hemoglobin Oxyhemoglobin Sodium Potassium Chloride Carbon Dioxide BUN Creatinine Glucose POC Glucose Calcium Phosphorus Magnesium ALT Alkaline Phosphatase Total Creatine Kinase CK-MB (CK-2) Rel Index Troponin T Albumin LDL Cholesterol Direct PTH Intact Salicylates < 0.3 L Acetaminophen < 5.0 L Crossmatch 02/21/19 02/22/19 02/22/19 22:35 03:42 03:42 WBC RBC 3.20 L Hgb 8.8 L Hct 27.6 L MCH MCHC RDW 18.9 H Lymph % (Auto) 7.4 L [place] % (Auto) Eos % (Auto) Lymph # 0.7 L [place] # Eos # Seg Neutrophils % 84.7 H Seg Neuts % (Manual) Lymphocytes % (Manual) Eosinophils % (Manual) Seg Neutrophils # Lymphocytes # (Manual) Eosinophils # (Manual) PT INR D-Dimer POC ABG pH POC ABG pCO2 POC ABG pO2 ABG pO2 ABG HCO3 ABG Base Excess ABG Hemoglobin Oxyhemoglobin Sodium 134 L Potassium 2.6 L* D Chloride Carbon Dioxide BUN Creatinine Glucose POC Glucose Calcium Phosphorus Magnesium ALT Alkaline Phosphatase Total Creatine Kinase CK-MB (CK-2) Rel Index 5.2 H Troponin T 0.202 H* Albumin LDL Cholesterol Direct PTH Intact Salicylates Acetaminophen Crossmatch 02/22/19 02/22/19 02/22/19 03:42 05:54 09:04 WBC RBC Hgb Hct MCH MCHC RDW Lymph % (Auto) [place] % (Auto) Eos % (Auto) Lymph # [place] # Eos # Seg Neutrophils % Seg Neuts % (Manual) Lymphocytes % (Manual) Eosinophils % (Manual) Seg Neutrophils # Lymphocytes # (Manual) Eosinophils # (Manual) PT INR D-Dimer 2987.82 H POC ABG pH 7.451 H POC ABG pCO2 POC ABG pO2 ABG pO2 ABG HCO3 ABG Base Excess ABG Hemoglobin Oxyhemoglobin Sodium Potassium Chloride Carbon Dioxide BUN Creatinine Glucose POC Glucose Calcium Phosphorus Magnesium ALT Alkaline Phosphatase Total Creatine Kinase CK-MB (CK-2) Rel Index 5.7 H Troponin T 0.193 H* Albumin LDL Cholesterol Direct PTH Intact Salicylates Acetaminophen Crossmatch 02/22/19 02/22/19 02/23/19 10:36 23:56 00:52 WBC RBC Hgb Hct MCH MCHC RDW Lymph % (Auto) [place] % (Auto) Eos % (Auto) Lymph # [place] # Eos # Seg Neutrophils % Seg Neuts % (Manual) Lymphocytes % (Manual) Eosinophils % (Manual) Seg Neutrophils # Lymphocytes # (Manual) Eosinophils # (Manual) PT INR D-Dimer POC ABG pH POC ABG pCO2 POC ABG pO2 ABG pO2 ABG HCO3 ABG Base Excess ABG Hemoglobin Oxyhemoglobin Sodium Potassium 3.1 L Chloride Carbon Dioxide BUN Creatinine Glucose POC Glucose 58 L 111 H Calcium Phosphorus Magnesium ALT Alkaline Phosphatase Total Creatine Kinase CK-MB (CK-2) Rel Index Troponin T Albumin LDL Cholesterol Direct PTH Intact Salicylates Acetaminophen Crossmatch 02/23/19 02/23/19 02/23/19 05:00 06:35 14:26 WBC RBC Hgb Hct MCH MCHC RDW Lymph % (Auto) [place] % (Auto) Eos % (Auto) Lymph # [place] # Eos # Seg Neutrophils % Seg Neuts % (Manual) Lymphocytes % (Manual) Eosinophils % (Manual) Seg Neutrophils # Lymphocytes # (Manual) Eosinophils # (Manual) PT INR D-Dimer POC ABG pH POC ABG pCO2 POC ABG pO2 ABG pO2 ABG HCO3 ABG Base Excess ABG Hemoglobin Oxyhemoglobin Sodium 135 L Potassium 3.1 L Chloride Carbon Dioxide BUN 21 H Creatinine 2.0 H Glucose 57 L POC Glucose 64 L 62 L Calcium Phosphorus Magnesium ALT Alkaline Phosphatase Total Creatine Kinase CK-MB (CK-2) Rel Index Troponin T Albumin LDL Cholesterol Direct PTH Intact Salicylates Acetaminophen Crossmatch 02/24/19 02/24/19 02/24/19 02:11 04:12 04:55 WBC RBC 2.84 L Hgb 7.8 L Hct 24.5 L MCH MCHC RDW 19.5 H Lymph % (Auto) [place] % (Auto) Eos % (Auto) Lymph # [place] # Eos # Seg Neutrophils % Seg Neuts % (Manual) Lymphocytes % (Manual) Eosinophils % (Manual) Seg Neutrophils # Lymphocytes # (Manual) Eosinophils # (Manual) PT INR D-Dimer POC ABG pH 7.511 H POC ABG pCO2 33.9 L POC ABG pO2 62 L ABG pO2 ABG HCO3 ABG Base Excess ABG Hemoglobin Oxyhemoglobin Sodium Potassium Chloride Carbon Dioxide BUN Creatinine Glucose POC Glucose 69 L Calcium Phosphorus Magnesium ALT Alkaline Phosphatase Total Creatine Kinase CK-MB (CK-2) Rel Index Troponin T Albumin LDL Cholesterol Direct PTH Intact Salicylates Acetaminophen Crossmatch 02/24/19 02/24/19 02/25/19 04:55 05:41 04:45 WBC RBC Hgb Hct MCH MCHC RDW Lymph % (Auto) [place] % (Auto) Eos % (Auto) Lymph # [place] # Eos # Seg Neutrophils % Seg Neuts % (Manual) Lymphocytes % (Manual) Eosinophils % (Manual) Seg Neutrophils # Lymphocytes # (Manual) Eosinophils # (Manual) PT INR D-Dimer POC ABG pH 7.466 H POC ABG pCO2 POC ABG pO2 75 L ABG pO2 ABG HCO3 ABG Base Excess ABG Hemoglobin Oxyhemoglobin Sodium Potassium Chloride Carbon Dioxide BUN Creatinine 1.8 H Glucose 73 L POC Glucose 127 H Calcium Phosphorus Magnesium ALT Alkaline Phosphatase Total Creatine Kinase CK-MB (CK-2) Rel Index Troponin T Albumin LDL Cholesterol Direct PTH Intact Salicylates Acetaminophen Crossmatch 02/25/19 02/25/19 02/26/19 16:34 21:33 03:45 WBC RBC 2.96 L Hgb 8.0 L Hct 25.8 L MCH 27 L MCHC 31 L RDW 20.0 H Lymph % (Auto) [place] % (Auto) Eos % (Auto) Lymph # [place] # Eos # Seg Neutrophils % Seg Neuts % (Manual) Lymphocytes % (Manual) Eosinophils % (Manual) Seg Neutrophils # Lymphocytes # (Manual) Eosinophils # (Manual) PT INR D-Dimer POC ABG pH POC ABG pCO2 POC ABG pO2 ABG pO2 ABG HCO3 ABG Base Excess ABG Hemoglobin Oxyhemoglobin Sodium Potassium Chloride Carbon Dioxide BUN Creatinine Glucose POC Glucose 141 H 106 H Calcium Phosphorus Magnesium ALT Alkaline Phosphatase Total Creatine Kinase CK-MB (CK-2) Rel Index Troponin T Albumin LDL Cholesterol Direct PTH Intact Salicylates Acetaminophen Crossmatch 02/26/19 02/26/19 02/26/19 03:45 04:13 07:53 WBC RBC Hgb Hct MCH MCHC RDW Lymph % (Auto) [place] % (Auto) Eos % (Auto) Lymph # [place] # Eos # Seg Neutrophils % Seg Neuts % (Manual) Lymphocytes % (Manual) Eosinophils % (Manual) Seg Neutrophils # Lymphocytes # (Manual) Eosinophils # (Manual) PT INR D-Dimer POC ABG pH 7.470 H POC ABG pCO2 POC ABG pO2 ABG pO2 ABG HCO3 ABG Base Excess ABG Hemoglobin Oxyhemoglobin Sodium Potassium Chloride Carbon Dioxide BUN Creatinine 1.8 H Glucose POC Glucose 110 H Calcium Phosphorus Magnesium ALT Alkaline Phosphatase Total Creatine Kinase CK-MB (CK-2) Rel Index Troponin T Albumin LDL Cholesterol Direct PTH Intact Salicylates Acetaminophen Crossmatch 02/26/19 02/26/19 02/27/19 11:56 17:43 00:12 WBC RBC Hgb Hct MCH MCHC RDW Lymph % (Auto) [place] % (Auto) Eos % (Auto) Lymph # [place] # Eos # Seg Neutrophils % Seg Neuts % (Manual) Lymphocytes % (Manual) Eosinophils % (Manual) Seg Neutrophils # Lymphocytes # (Manual) Eosinophils # (Manual) PT INR D-Dimer POC ABG pH POC ABG pCO2 POC ABG pO2 ABG pO2 ABG HCO3 ABG Base Excess ABG Hemoglobin Oxyhemoglobin Sodium Potassium Chloride Carbon Dioxide BUN Creatinine Glucose POC Glucose 112 H 127 H 127 H Calcium Phosphorus Magnesium ALT Alkaline Phosphatase Total Creatine Kinase CK-MB (CK-2) Rel Index Troponin T Albumin LDL Cholesterol Direct PTH Intact Salicylates Acetaminophen Crossmatch 02/27/19 02/27/19 02/27/19 04:35 13:15 18:02 WBC RBC Hgb Hct MCH MCHC RDW Lymph % (Auto) [place] % (Auto) Eos % (Auto) Lymph # [place] # Eos # Seg Neutrophils % Seg Neuts % (Manual) Lymphocytes % (Manual) Eosinophils % (Manual) Seg Neutrophils # Lymphocytes # (Manual) Eosinophils # (Manual) PT INR D-Dimer POC ABG pH 7.483 H POC ABG pCO2 POC ABG pO2 61 L ABG pO2 ABG HCO3 ABG Base Excess ABG Hemoglobin Oxyhemoglobin Sodium Potassium Chloride Carbon Dioxide BUN Creatinine Glucose POC Glucose 143 H 106 H Calcium Phosphorus Magnesium ALT Alkaline Phosphatase Total Creatine Kinase CK-MB (CK-2) Rel Index Troponin T Albumin LDL Cholesterol Direct PTH Intact Salicylates Acetaminophen Crossmatch 02/28/19 02/28/19 02/28/19 05:50 11:59 17:52 WBC RBC Hgb Hct MCH MCHC RDW Lymph % (Auto) [place] % (Auto) Eos % (Auto) Lymph # [place] # Eos # Seg Neutrophils % Seg Neuts % (Manual) Lymphocytes % (Manual) Eosinophils % (Manual) Seg Neutrophils # Lymphocytes # (Manual) Eosinophils # (Manual) PT INR D-Dimer POC ABG pH POC ABG pCO2 POC ABG pO2 ABG pO2 ABG HCO3 ABG Base Excess ABG Hemoglobin Oxyhemoglobin Sodium Potassium Chloride Carbon Dioxide BUN Creatinine Glucose POC Glucose 134 H 128 H 142 H Calcium Phosphorus Magnesium ALT Alkaline Phosphatase Total Creatine Kinase CK-MB (CK-2) Rel Index Troponin T Albumin LDL Cholesterol Direct PTH Intact Salicylates Acetaminophen Crossmatch 02/28/19 03/01/19 03/01/19 23:13 05:40 09:39 WBC RBC Hgb Hct MCH MCHC RDW Lymph % (Auto) [place] % (Auto) Eos % (Auto) Lymph # [place] # Eos # Seg Neutrophils % Seg Neuts % (Manual) Lymphocytes % (Manual) Eosinophils % (Manual) Seg Neutrophils # Lymphocytes # (Manual) Eosinophils # (Manual) PT 16.3 H INR 1.35 H D-Dimer POC ABG pH POC ABG pCO2 POC ABG pO2 ABG pO2 ABG HCO3 ABG Base Excess ABG Hemoglobin Oxyhemoglobin Sodium Potassium Chloride Carbon Dioxide BUN Creatinine Glucose POC Glucose 112 H 111 H Calcium Phosphorus Magnesium ALT Alkaline Phosphatase Total Creatine Kinase CK-MB (CK-2) Rel Index Troponin T Albumin LDL Cholesterol Direct PTH Intact Salicylates Acetaminophen Crossmatch 03/01/19 03/01/19 03/01/19 11:56 13:54 17:59 WBC RBC Hgb Hct MCH MCHC RDW Lymph % (Auto) [place] % (Auto) Eos % (Auto) Lymph # [place] # Eos # Seg Neutrophils % Seg Neuts % (Manual) Lymphocytes % (Manual) Eosinophils % (Manual) Seg Neutrophils # Lymphocytes # (Manual) Eosinophils # (Manual) PT INR D-Dimer POC ABG pH POC ABG pCO2 POC ABG pO2 ABG pO2 ABG HCO3 ABG Base Excess ABG Hemoglobin Oxyhemoglobin Sodium Potassium Chloride Carbon Dioxide BUN 33 H Creatinine 2.8 H D Glucose 176 H POC Glucose 199 H 147 H Calcium Phosphorus Magnesium ALT Alkaline Phosphatase Total Creatine Kinase CK-MB (CK-2) Rel Index Troponin T Albumin LDL Cholesterol Direct PTH Intact Salicylates Acetaminophen Crossmatch 03/02/19 03/02/19 03/02/19 05:15 05:15 05:15 WBC RBC 2.73 L Hgb 7.4 L Hct 23.0 L MCH 27 L MCHC RDW 19.9 H Lymph % (Auto) [place] % (Auto) 7.9 H Eos % (Auto) 7.6 H Lymph # 1.0 L [place] # Eos # 0.5 H Seg Neutrophils % Seg Neuts % (Manual) Lymphocytes % (Manual) Eosinophils % (Manual) Seg Neutrophils # Lymphocytes # (Manual) Eosinophils # (Manual) PT INR D-Dimer POC ABG pH POC ABG pCO2 POC ABG pO2 ABG pO2 ABG HCO3 ABG Base Excess ABG Hemoglobin Oxyhemoglobin Sodium Potassium Chloride Carbon Dioxide BUN 43 H Creatinine 3.2 H Glucose POC Glucose Calcium Phosphorus 2.30 L Magnesium ALT Alkaline Phosphatase Total Creatine Kinase CK-MB (CK-2) Rel Index Troponin T Albumin LDL Cholesterol Direct PTH Intact 267.6 H Salicylates Acetaminophen Crossmatch 03/02/19 03/02/19 03/03/19 12:32 18:20 13:30 WBC RBC Hgb Hct MCH MCHC RDW Lymph % (Auto) [place] % (Auto) Eos % (Auto) Lymph # [place] # Eos # Seg Neutrophils % Seg Neuts % (Manual) Lymphocytes % (Manual) Eosinophils % (Manual) Seg Neutrophils # Lymphocytes # (Manual) Eosinophils # (Manual) PT INR D-Dimer POC ABG pH POC ABG pCO2 POC ABG pO2 ABG pO2 ABG HCO3 ABG Base Excess ABG Hemoglobin Oxyhemoglobin Sodium Potassium Chloride 97.3 L Carbon Dioxide BUN 26 H Creatinine 2.2 H Glucose 73 L POC Glucose 111 H 156 H Calcium Phosphorus Magnesium ALT Alkaline Phosphatase Total Creatine Kinase CK-MB (CK-2) Rel Index Troponin T Albumin LDL Cholesterol Direct PTH Intact Salicylates Acetaminophen Crossmatch 03/04/19 03/04/19 03/04/19 00:02 05:37 05:40 WBC RBC 2.63 L Hgb 7.2 L Hct 22.2 L MCH MCHC RDW 20.2 H Lymph % (Auto) 10.5 L [place] % (Auto) Eos % (Auto) 4.6 H Lymph # 0.7 L [place] # Eos # Seg Neutrophils % 76.9 H Seg Neuts % (Manual) Lymphocytes % (Manual) Eosinophils % (Manual) Seg Neutrophils # Lymphocytes # (Manual) Eosinophils # (Manual) PT INR D-Dimer POC ABG pH POC ABG pCO2 POC ABG pO2 ABG pO2 ABG HCO3 ABG Base Excess ABG Hemoglobin Oxyhemoglobin Sodium Potassium Chloride Carbon Dioxide BUN Creatinine Glucose POC Glucose 136 H 123 H Calcium Phosphorus Magnesium ALT Alkaline Phosphatase Total Creatine Kinase CK-MB (CK-2) Rel Index Troponin T Albumin LDL Cholesterol Direct PTH Intact Salicylates Acetaminophen Crossmatch 03/04/19 03/04/19 03/04/19 05:40 11:39 23:20 WBC RBC Hgb Hct MCH MCHC RDW Lymph % (Auto) [place] % (Auto) Eos % (Auto) Lymph # [place] # Eos # Seg Neutrophils % Seg Neuts % (Manual) Lymphocytes % (Manual) Eosinophils % (Manual) Seg Neutrophils # Lymphocytes # (Manual) Eosinophils # (Manual) PT INR D-Dimer POC ABG pH POC ABG pCO2 POC ABG pO2 ABG pO2 ABG HCO3 ABG Base Excess ABG Hemoglobin Oxyhemoglobin Sodium Potassium Chloride Carbon Dioxide BUN 34 H Creatinine 2.7 H Glucose 114 H POC Glucose 175 H 151 H Calcium Phosphorus Magnesium ALT Alkaline Phosphatase Total Creatine Kinase CK-MB (CK-2) Rel Index Troponin T Albumin LDL Cholesterol Direct PTH Intact Salicylates Acetaminophen Crossmatch 03/05/19 03/05/19 03/05/19 05:37 12:08 17:11 WBC RBC Hgb Hct MCH MCHC RDW Lymph % (Auto) [place] % (Auto) Eos % (Auto) Lymph # [place] # Eos # Seg Neutrophils % Seg Neuts % (Manual) Lymphocytes % (Manual) Eosinophils % (Manual) Seg Neutrophils # Lymphocytes # (Manual) Eosinophils # (Manual) PT INR D-Dimer POC ABG pH POC ABG pCO2 POC ABG pO2 ABG pO2 ABG HCO3 ABG Base Excess ABG Hemoglobin Oxyhemoglobin Sodium Potassium Chloride Carbon Dioxide BUN Creatinine Glucose POC Glucose 134 H 135 H 135 H Calcium Phosphorus Magnesium ALT Alkaline Phosphatase Total Creatine Kinase CK-MB (CK-2) Rel Index Troponin T Albumin LDL Cholesterol Direct PTH Intact Salicylates Acetaminophen Crossmatch 03/06/19 03/06/19 03/06/19 00:16 13:05 18:09 WBC RBC Hgb Hct MCH MCHC RDW Lymph % (Auto) [place] % (Auto) Eos % (Auto) Lymph # [place] # Eos # Seg Neutrophils % Seg Neuts % (Manual) Lymphocytes % (Manual) Eosinophils % (Manual) Seg Neutrophils # Lymphocytes # (Manual) Eosinophils # (Manual) PT INR D-Dimer POC ABG pH POC ABG pCO2 POC ABG pO2 ABG pO2 ABG HCO3 ABG Base Excess ABG Hemoglobin Oxyhemoglobin Sodium Potassium Chloride Carbon Dioxide BUN Creatinine Glucose POC Glucose 117 H 113 H 131 H Calcium Phosphorus Magnesium ALT Alkaline Phosphatase Total Creatine Kinase CK-MB (CK-2) Rel Index Troponin T Albumin LDL Cholesterol Direct PTH Intact Salicylates Acetaminophen Crossmatch 03/07/19 03/08/19 03/08/19 05:25 05:33 16:00 WBC RBC 2.44 L Hgb 6.6 L Hct 20.8 L MCH 27 L MCHC RDW 19.2 H Lymph % (Auto) [place] % (Auto) Eos % (Auto) 8.6 H Lymph # 0.8 L [place] # Eos # 0.5 H Seg Neutrophils % 70.7 H Seg Neuts % (Manual) Lymphocytes % (Manual) Eosinophils % (Manual) Seg Neutrophils # Lymphocytes # (Manual) Eosinophils # (Manual) PT INR D-Dimer POC ABG pH POC ABG pCO2 POC ABG pO2 ABG pO2 ABG HCO3 ABG Base Excess ABG Hemoglobin Oxyhemoglobin Sodium Potassium Chloride Carbon Dioxide BUN Creatinine Glucose POC Glucose 106 H 108 H Calcium Phosphorus Magnesium ALT Alkaline Phosphatase Total Creatine Kinase CK-MB (CK-2) Rel Index Troponin T Albumin LDL Cholesterol Direct PTH Intact Salicylates Acetaminophen Crossmatch 03/08/19 03/08/19 03/08/19 16:00 18:38 Unknown WBC RBC Hgb Hct MCH MCHC RDW Lymph % (Auto) [place] % (Auto) Eos % (Auto) Lymph # [place] # Eos # Seg Neutrophils % Seg Neuts % (Manual) Lymphocytes % (Manual) Eosinophils % (Manual) Seg Neutrophils # Lymphocytes # (Manual) Eosinophils # (Manual) PT INR D-Dimer POC ABG pH POC ABG pCO2 POC ABG pO2 ABG pO2 ABG HCO3 ABG Base Excess ABG Hemoglobin Oxyhemoglobin Sodium Potassium 5.4 H D Chloride Carbon Dioxide BUN 47 H Creatinine 2.6 H Glucose POC Glucose 123 H Calcium Phosphorus Magnesium ALT < 5 L Alkaline Phosphatase Total Creatine Kinase CK-MB (CK-2) Rel Index Troponin T Albumin 2.2 L LDL Cholesterol Direct PTH Intact Salicylates Acetaminophen Crossmatch See Detail 03/09/19 03/09/19 03/09/19 10:48 12:28 13:53 WBC RBC 2.85 L Hgb 7.7 L Hct 24.2 L MCH 27 L MCHC RDW 18.7 H Lymph % (Auto) [place] % (Auto) Eos % (Auto) Lymph # [place] # Eos # Seg Neutrophils % Seg Neuts % (Manual) Lymphocytes % (Manual) Eosinophils % (Manual) Seg Neutrophils # Lymphocytes # (Manual) Eosinophils # (Manual) PT INR D-Dimer POC ABG pH POC ABG pCO2 POC ABG pO2 ABG pO2 ABG HCO3 30.5 H ABG Base Excess 5.6 H ABG Hemoglobin 8.1 L Oxyhemoglobin 93.8 L Sodium Potassium Chloride Carbon Dioxide BUN Creatinine Glucose POC Glucose 114 H Calcium Phosphorus Magnesium ALT Alkaline Phosphatase Total Creatine Kinase CK-MB (CK-2) Rel Index Troponin T Albumin LDL Cholesterol Direct PTH Intact Salicylates Acetaminophen Crossmatch 03/09/19 03/09/19 03/10/19 17:58 23:53 12:01 WBC RBC Hgb Hct MCH MCHC RDW Lymph % (Auto) [place] % (Auto) Eos % (Auto) Lymph # [place] # Eos # Seg Neutrophils % Seg Neuts % (Manual) Lymphocytes % (Manual) Eosinophils % (Manual) Seg Neutrophils # Lymphocytes # (Manual) Eosinophils # (Manual) PT INR D-Dimer POC ABG pH POC ABG pCO2 POC ABG pO2 ABG pO2 ABG HCO3 ABG Base Excess ABG Hemoglobin Oxyhemoglobin Sodium Potassium Chloride Carbon Dioxide BUN Creatinine Glucose POC Glucose 108 H 128 H 144 H Calcium Phosphorus Magnesium ALT Alkaline Phosphatase Total Creatine Kinase CK-MB (CK-2) Rel Index Troponin T Albumin LDL Cholesterol Direct PTH Intact Salicylates Acetaminophen Crossmatch 03/10/19 03/11/19 03/11/19 16:50 00:24 05:02 WBC RBC Hgb Hct MCH MCHC RDW Lymph % (Auto) [place] % (Auto) Eos % (Auto) Lymph # [place] # Eos # Seg Neutrophils % Seg Neuts % (Manual) Lymphocytes % (Manual) Eosinophils % (Manual) Seg Neutrophils # Lymphocytes # (Manual) Eosinophils # (Manual) PT INR D-Dimer POC ABG pH POC ABG pCO2 POC ABG pO2 ABG pO2 ABG HCO3 ABG Base Excess ABG Hemoglobin Oxyhemoglobin Sodium Potassium Chloride Carbon Dioxide BUN Creatinine Glucose POC Glucose 147 H 123 H 120 H Calcium Phosphorus Magnesium ALT Alkaline Phosphatase Total Creatine Kinase CK-MB (CK-2) Rel Index Troponin T Albumin LDL Cholesterol Direct PTH Intact Salicylates Acetaminophen Crossmatch 03/11/19 03/11/19 03/11/19 11:56 12:20 18:37 WBC RBC Hgb Hct MCH MCHC RDW Lymph % (Auto) [place] % (Auto) Eos % (Auto) Lymph # [place] # Eos # Seg Neutrophils % Seg Neuts % (Manual) Lymphocytes % (Manual) Eosinophils % (Manual) Seg Neutrophils # Lymphocytes # (Manual) Eosinophils # (Manual) PT INR D-Dimer POC ABG pH POC ABG pCO2 POC ABG pO2 ABG pO2 ABG HCO3 ABG Base Excess ABG Hemoglobin Oxyhemoglobin Sodium Potassium 5.2 H Chloride Carbon Dioxide BUN Creatinine Glucose POC Glucose 123 H 125 H Calcium Phosphorus Magnesium ALT Alkaline Phosphatase Total Creatine Kinase CK-MB (CK-2) Rel Index Troponin T Albumin LDL Cholesterol Direct PTH Intact Salicylates Acetaminophen Crossmatch 03/11/19 03/12/19 03/12/19 22:52 12:04 18:25 WBC RBC Hgb Hct MCH MCHC RDW Lymph % (Auto) [place] % (Auto) Eos % (Auto) Lymph # [place] # Eos # Seg Neutrophils % Seg Neuts % (Manual) Lymphocytes % (Manual) Eosinophils % (Manual) Seg Neutrophils # Lymphocytes # (Manual) Eosinophils # (Manual) PT INR D-Dimer POC ABG pH POC ABG pCO2 POC ABG pO2 ABG pO2 ABG HCO3 ABG Base Excess ABG Hemoglobin Oxyhemoglobin Sodium Potassium Chloride Carbon Dioxide BUN Creatinine Glucose POC Glucose 110 H 106 H 118 H Calcium Phosphorus Magnesium ALT Alkaline Phosphatase Total Creatine Kinase CK-MB (CK-2) Rel Index Troponin T Albumin LDL Cholesterol Direct PTH Intact Salicylates Acetaminophen Crossmatch 03/12/19 03/13/19 03/13/19 23:36 04:38 04:38 WBC RBC 2.95 L Hgb 7.9 L Hct 24.9 L MCH 27 L MCHC RDW 19.9 H Lymph % (Auto) 11.1 L [place] % (Auto) 8.1 H Eos % (Auto) 4.4 H Lymph # 0.9 L [place] # Eos # Seg Neutrophils % 75.4 H Seg Neuts % (Manual) Lymphocytes % (Manual) Eosinophils % (Manual) Seg Neutrophils # Lymphocytes # (Manual) Eosinophils # (Manual) PT INR D-Dimer POC ABG pH POC ABG pCO2 POC ABG pO2 ABG pO2 ABG HCO3 ABG Base Excess ABG Hemoglobin Oxyhemoglobin Sodium 136 L Potassium 5.1 H Chloride 93.8 L Carbon Dioxide BUN 48 H Creatinine 2.7 H Glucose 102 H POC Glucose 115 H Calcium Phosphorus Magnesium ALT < 5 L Alkaline Phosphatase 143 H Total Creatine Kinase CK-MB (CK-2) Rel Index Troponin T Albumin 2.5 L LDL Cholesterol Direct PTH Intact Salicylates Acetaminophen Crossmatch 03/13/19 03/13/19 03/13/19 05:33 13:37 18:03 WBC RBC Hgb Hct MCH MCHC RDW Lymph % (Auto) [place] % (Auto) Eos % (Auto) Lymph # [place] # Eos # Seg Neutrophils % Seg Neuts % (Manual) Lymphocytes % (Manual) Eosinophils % (Manual) Seg Neutrophils # Lymphocytes # (Manual) Eosinophils # (Manual) PT INR D-Dimer POC ABG pH POC ABG pCO2 POC ABG pO2 ABG pO2 ABG HCO3 ABG Base Excess ABG Hemoglobin Oxyhemoglobin Sodium Potassium Chloride Carbon Dioxide BUN Creatinine Glucose POC Glucose 140 H 150 H 158 H Calcium Phosphorus Magnesium ALT Alkaline Phosphatase Total Creatine Kinase CK-MB (CK-2) Rel Index Troponin T Albumin LDL Cholesterol Direct PTH Intact Salicylates Acetaminophen Crossmatch 03/13/19 03/14/19 03/14/19 23:32 05:24 12:20 WBC RBC Hgb Hct MCH MCHC RDW Lymph % (Auto) [place] % (Auto) Eos % (Auto) Lymph # [place] # Eos # Seg Neutrophils % Seg Neuts % (Manual) Lymphocytes % (Manual) Eosinophils % (Manual) Seg Neutrophils # Lymphocytes # (Manual) Eosinophils # (Manual) PT INR D-Dimer POC ABG pH POC ABG pCO2 POC ABG pO2 ABG pO2 ABG HCO3 ABG Base Excess ABG Hemoglobin Oxyhemoglobin Sodium Potassium Chloride Carbon Dioxide BUN Creatinine Glucose POC Glucose 162 H 146 H 127 H Calcium Phosphorus Magnesium ALT Alkaline Phosphatase Total Creatine Kinase CK-MB (CK-2) Rel Index Troponin T Albumin LDL Cholesterol Direct PTH Intact Salicylates Acetaminophen Crossmatch 03/14/19 03/14/19 03/15/19 18:05 23:57 04:38 WBC 12.8 H RBC 3.11 L Hgb 8.1 L Hct 26.5 L MCH 26 L MCHC 31 L RDW 19.7 H Lymph % (Auto) 4.4 L [place] % (Auto) 7.4 H Eos % (Auto) Lymph # 0.6 L [place] # 0.9 H Eos # Seg Neutrophils % 87.3 H Seg Neuts % (Manual) Lymphocytes % (Manual) Eosinophils % (Manual) Seg Neutrophils # 11.2 H Lymphocytes # (Manual) Eosinophils # (Manual) PT INR D-Dimer POC ABG pH POC ABG pCO2 POC ABG pO2 ABG pO2 ABG HCO3 ABG Base Excess ABG Hemoglobin Oxyhemoglobin Sodium Potassium Chloride Carbon Dioxide BUN Creatinine Glucose POC Glucose 142 H 155 H Calcium Phosphorus Magnesium ALT Alkaline Phosphatase Total Creatine Kinase CK-MB (CK-2) Rel Index Troponin T Albumin LDL Cholesterol Direct PTH Intact Salicylates Acetaminophen Crossmatch 03/15/19 03/15/19 03/15/19 04:38 05:31 11:32 WBC RBC Hgb Hct MCH MCHC RDW Lymph % (Auto) [place] % (Auto) Eos % (Auto) Lymph # [place] # Eos # Seg Neutrophils % Seg Neuts % (Manual) Lymphocytes % (Manual) Eosinophils % (Manual) Seg Neutrophils # Lymphocytes # (Manual) Eosinophils # (Manual) PT INR D-Dimer POC ABG pH POC ABG pCO2 POC ABG pO2 ABG pO2 ABG HCO3 ABG Base Excess ABG Hemoglobin Oxyhemoglobin Sodium 135 L Potassium Chloride 91.9 L Carbon Dioxide BUN 54 H Creatinine 2.8 H Glucose 128 H POC Glucose 160 H 109 H Calcium 11.1 H Phosphorus Magnesium ALT Alkaline Phosphatase 161 H Total Creatine Kinase CK-MB (CK-2) Rel Index Troponin T Albumin 2.3 L LDL Cholesterol Direct PTH Intact Salicylates Acetaminophen Crossmatch 03/15/19 03/15/19 03/16/19 18:15 23:41 05:40 WBC RBC Hgb Hct MCH MCHC RDW Lymph % (Auto) [place] % (Auto) Eos % (Auto) Lymph # [place] # Eos # Seg Neutrophils % Seg Neuts % (Manual) Lymphocytes % (Manual) Eosinophils % (Manual) Seg Neutrophils # Lymphocytes # (Manual) Eosinophils # (Manual) PT INR D-Dimer POC ABG pH POC ABG pCO2 POC ABG pO2 ABG pO2 ABG HCO3 ABG Base Excess ABG Hemoglobin Oxyhemoglobin Sodium Potassium Chloride Carbon Dioxide BUN Creatinine Glucose POC Glucose 151 H 110 H 163 H Calcium Phosphorus Magnesium ALT Alkaline Phosphatase Total Creatine Kinase CK-MB (CK-2) Rel Index Troponin T Albumin LDL Cholesterol Direct PTH Intact Salicylates Acetaminophen Crossmatch 08/26/19 08/26/19 08/26/19 11:55 17:04 23:58 WBC RBC Hgb Hct MCH MCHC RDW Lymph % (Auto) [place] % (Auto) Eos % (Auto) Lymph # [place] # Eos # Seg Neutrophils % Seg Neuts % (Manual) Lymphocytes % (Manual) Eosinophils % (Manual) Seg Neutrophils # Lymphocytes # (Manual) Eosinophils # (Manual) PT INR D-Dimer POC ABG pH POC ABG pCO2 POC ABG pO2 ABG pO2 ABG HCO3 ABG Base Excess ABG Hemoglobin Oxyhemoglobin Sodium Potassium Chloride Carbon Dioxide BUN Creatinine Glucose POC Glucose 114 H 147 H 192 H Calcium Phosphorus Magnesium ALT Alkaline Phosphatase Total Creatine Kinase CK-MB (CK-2) Rel Index Troponin T Albumin LDL Cholesterol Direct PTH Intact Salicylates Acetaminophen Crossmatch 03/17/19 03/17/19 03/17/19 05:53 11:17 17:01 WBC RBC Hgb Hct MCH MCHC RDW Lymph % (Auto) [place] % (Auto) Eos % (Auto) Lymph # [place] # Eos # Seg Neutrophils % Seg Neuts % (Manual) Lymphocytes % (Manual) Eosinophils % (Manual) Seg Neutrophils # Lymphocytes # (Manual) Eosinophils # (Manual) PT INR D-Dimer POC ABG pH POC ABG pCO2 POC ABG pO2 ABG pO2 ABG HCO3 ABG Base Excess ABG Hemoglobin Oxyhemoglobin Sodium Potassium Chloride Carbon Dioxide BUN Creatinine Glucose POC Glucose 151 H 161 H 152 H Calcium Phosphorus Magnesium ALT Alkaline Phosphatase Total Creatine Kinase CK-MB (CK-2) Rel Index Troponin T Albumin LDL Cholesterol Direct PTH Intact Salicylates Acetaminophen Crossmatch 03/17/19 03/18/19 03/18/19 21:47 04:15 04:44 WBC RBC Hgb Hct MCH MCHC RDW Lymph % (Auto) [place] % (Auto) Eos % (Auto) Lymph # [place] # Eos # Seg Neutrophils % Seg Neuts % (Manual) Lymphocytes % (Manual) Eosinophils % (Manual) Seg Neutrophils # Lymphocytes # (Manual) Eosinophils # (Manual) PT INR D-Dimer POC ABG pH POC ABG pCO2 POC ABG pO2 ABG pO2 102.8 H ABG HCO3 28.3 H ABG Base Excess ABG Hemoglobin 10.4 L Oxyhemoglobin 94.5 L Sodium Potassium Chloride Carbon Dioxide BUN Creatinine Glucose POC Glucose 170 H 150 H Calcium Phosphorus Magnesium ALT Alkaline Phosphatase Total Creatine Kinase CK-MB (CK-2) Rel Index Troponin T Albumin LDL Cholesterol Direct PTH Intact Salicylates Acetaminophen Crossmatch 03/18/19 03/18/19 03/18/19 06:38 12:12 17:47 WBC RBC Hgb Hct MCH MCHC RDW Lymph % (Auto) [place] % (Auto) Eos % (Auto) Lymph # [place] # Eos # Seg Neutrophils % Seg Neuts % (Manual) Lymphocytes % (Manual) Eosinophils % (Manual) Seg Neutrophils # Lymphocytes # (Manual) Eosinophils # (Manual) PT INR D-Dimer POC ABG pH 7.510 H POC ABG pCO2 POC ABG pO2 164 H ABG pO2 ABG HCO3 ABG Base Excess ABG Hemoglobin Oxyhemoglobin Sodium Potassium Chloride Carbon Dioxide BUN Creatinine Glucose POC Glucose 145 H 149 H Calcium Phosphorus Magnesium ALT Alkaline Phosphatase Total Creatine Kinase CK-MB (CK-2) Rel Index Troponin T Albumin LDL Cholesterol Direct PTH Intact Salicylates Acetaminophen Crossmatch 03/18/19 03/19/19 03/19/19 23:25 01:11 04:23 WBC 15.6 H RBC 2.51 L Hgb 6.5 L Hct 21.6 L MCH 26 L MCHC 30 L RDW 19.8 H Lymph % (Auto) 6.0 L [place] % (Auto) Eos % (Auto) Lymph # 0.9 L [place] # 1.0 H Eos # Seg Neutrophils % 85.5 H Seg Neuts % (Manual) Lymphocytes % (Manual) Eosinophils % (Manual) Seg Neutrophils # 13.4 H Lymphocytes # (Manual) Eosinophils # (Manual) PT INR D-Dimer POC ABG pH POC ABG pCO2 POC ABG pO2 ABG pO2 78.3 L ABG HCO3 30.7 H ABG Base Excess 5.8 H ABG Hemoglobin 5.8 L Oxyhemoglobin 94.6 L Sodium Potassium Chloride Carbon Dioxide BUN Creatinine Glucose POC Glucose 190 H Calcium Phosphorus Magnesium ALT Alkaline Phosphatase Total Creatine Kinase CK-MB (CK-2) Rel Index Troponin T Albumin LDL Cholesterol Direct PTH Intact Salicylates Acetaminophen Crossmatch 03/19/19 03/19/19 03/19/19 05:22 05:35 08:54 WBC RBC Hgb Hct MCH MCHC RDW Lymph % (Auto) [place] % (Auto) Eos % (Auto) Lymph # [place] # Eos # Seg Neutrophils % Seg Neuts % (Manual) Lymphocytes % (Manual) Eosinophils % (Manual) Seg Neutrophils # Lymphocytes # (Manual) Eosinophils # (Manual) PT INR D-Dimer POC ABG pH POC ABG pCO2 POC ABG pO2 ABG pO2 ABG HCO3 ABG Base Excess ABG Hemoglobin Oxyhemoglobin Sodium Potassium Chloride Carbon Dioxide BUN Creatinine Glucose POC Glucose 167 H Calcium Phosphorus Magnesium ALT Alkaline Phosphatase Total Creatine Kinase CK-MB (CK-2) Rel Index Troponin T Albumin LDL Cholesterol Direct PTH Intact Salicylates Acetaminophen Crossmatch See Detail See Detail 03/19/19 03/19/19 03/19/19 12:36 17:02 23:25 WBC RBC Hgb Hct MCH MCHC RDW Lymph % (Auto) [place] % (Auto) Eos % (Auto) Lymph # [place] # Eos # Seg Neutrophils % Seg Neuts % (Manual) Lymphocytes % (Manual) Eosinophils % (Manual) Seg Neutrophils # Lymphocytes # (Manual) Eosinophils # (Manual) PT INR D-Dimer POC ABG pH POC ABG pCO2 POC ABG pO2 ABG pO2 ABG HCO3 ABG Base Excess ABG Hemoglobin Oxyhemoglobin Sodium Potassium Chloride Carbon Dioxide BUN Creatinine Glucose POC Glucose 167 H 135 H 136 H Calcium Phosphorus Magnesium ALT Alkaline Phosphatase Total Creatine Kinase CK-MB (CK-2) Rel Index Troponin T Albumin LDL Cholesterol Direct PTH Intact Salicylates Acetaminophen Crossmatch 03/20/19 03/20/19 03/20/19 05:38 08:40 08:40 WBC RBC 2.61 L Hgb 7.1 L Hct 22.0 L MCH 27 L MCHC RDW 19.6 H Lymph % (Auto) 8.2 L [place] % (Auto) 8.3 H Eos % (Auto) 5.7 H Lymph # 0.8 L [place] # Eos # 0.5 H Seg Neutrophils % 77.3 H Seg Neuts % (Manual) Lymphocytes % (Manual) Eosinophils % (Manual) Seg Neutrophils # Lymphocytes # (Manual) Eosinophils # (Manual) PT INR D-Dimer POC ABG pH POC ABG pCO2 POC ABG pO2 ABG pO2 ABG HCO3 ABG Base Excess ABG Hemoglobin Oxyhemoglobin Sodium Potassium Chloride 95.9 L Carbon Dioxide BUN 69 H Creatinine 2.8 H Glucose 115 H POC Glucose 134 H Calcium 10.5 H Phosphorus Magnesium ALT Alkaline Phosphatase Total Creatine Kinase CK-MB (CK-2) Rel Index Troponin T Albumin LDL Cholesterol Direct PTH Intact Salicylates Acetaminophen Crossmatch 08/30/19 08/30/19 08/30/19 12:13 18:04 23:49 WBC RBC Hgb Hct MCH MCHC RDW Lymph % (Auto) [place] % (Auto) Eos % (Auto) Lymph # [place] # Eos # Seg Neutrophils % Seg Neuts % (Manual) Lymphocytes % (Manual) Eosinophils % (Manual) Seg Neutrophils # Lymphocytes # (Manual) Eosinophils # (Manual) PT INR D-Dimer POC ABG pH POC ABG pCO2 POC ABG pO2 ABG pO2 ABG HCO3 ABG Base Excess ABG Hemoglobin Oxyhemoglobin Sodium Potassium Chloride Carbon Dioxide BUN Creatinine Glucose POC Glucose 144 H 165 H 172 H Calcium Phosphorus Magnesium ALT Alkaline Phosphatase Total Creatine Kinase CK-MB (CK-2) Rel Index Troponin T Albumin LDL Cholesterol Direct PTH Intact Salicylates Acetaminophen Crossmatch 03/21/19 03/21/19 03/21/19 05:00 06:29 06:30 WBC RBC 2.72 L Hgb 7.4 L Hct 22.9 L MCH 27 L MCHC RDW 19.4 H Lymph % (Auto) [place] % (Auto) Eos % (Auto) Lymph # [place] # Eos # Seg Neutrophils % Seg Neuts % (Manual) 81.0 H Lymphocytes % (Manual) 8.0 L Eosinophils % (Manual) 8.0 H Seg Neutrophils # Lymphocytes # (Manual) 0.7 L Eosinophils # (Manual) 0.7 H PT INR D-Dimer POC ABG pH POC ABG pCO2 POC ABG pO2 ABG pO2 ABG HCO3 ABG Base Excess ABG Hemoglobin Oxyhemoglobin Sodium Potassium Chloride Carbon Dioxide 33 H BUN 43 H Creatinine 1.7 H Glucose 145 H POC Glucose 156 H Calcium Phosphorus Magnesium ALT Alkaline Phosphatase 212 H Total Creatine Kinase CK-MB (CK-2) Rel Index Troponin T Albumin 2.2 L LDL Cholesterol Direct PTH Intact Salicylates Acetaminophen Crossmatch 03/21/19 03/21/19 03/22/19 12:02 18:07 00:21 WBC RBC Hgb Hct MCH MCHC RDW Lymph % (Auto) [place] % (Auto) Eos % (Auto) Lymph # [place] # Eos # Seg Neutrophils % Seg Neuts % (Manual) Lymphocytes % (Manual) Eosinophils % (Manual) Seg Neutrophils # Lymphocytes # (Manual) Eosinophils # (Manual) PT INR D-Dimer POC ABG pH POC ABG pCO2 POC ABG pO2 ABG pO2 ABG HCO3 ABG Base Excess ABG Hemoglobin Oxyhemoglobin Sodium Potassium Chloride Carbon Dioxide BUN Creatinine Glucose POC Glucose 163 H 144 H 153 H Calcium Phosphorus Magnesium ALT Alkaline Phosphatase Total Creatine Kinase CK-MB (CK-2) Rel Index Troponin T Albumin LDL Cholesterol Direct PTH Intact Salicylates Acetaminophen Crossmatch 03/22/19 03/22/19 03/22/19 05:23 05:23 05:31 WBC RBC 2.58 L Hgb 7.1 L Hct 21.8 L MCH 27 L MCHC RDW 19.2 H Lymph % (Auto) [place] % (Auto) Eos % (Auto) Lymph # [place] # Eos # Seg Neutrophils % Seg Neuts % (Manual) Lymphocytes % (Manual) Eosinophils % (Manual) Seg Neutrophils # Lymphocytes # (Manual) Eosinophils # (Manual) PT INR D-Dimer POC ABG pH POC ABG pCO2 POC ABG pO2 ABG pO2 ABG HCO3 ABG Base Excess ABG Hemoglobin Oxyhemoglobin Sodium 147 H Potassium Chloride Carbon Dioxide BUN 68 H Creatinine 2.5 H Glucose POC Glucose 116 H Calcium 10.3 H Phosphorus Magnesium ALT Alkaline Phosphatase Total Creatine Kinase CK-MB (CK-2) Rel Index Troponin T Albumin LDL Cholesterol Direct PTH Intact Salicylates Acetaminophen Crossmatch 03/22/19 03/22/19 03/22/19 08:48 12:37 17:35 WBC RBC Hgb Hct MCH MCHC RDW Lymph % (Auto) [place] % (Auto) Eos % (Auto) Lymph # [place] # Eos # Seg Neutrophils % Seg Neuts % (Manual) Lymphocytes % (Manual) Eosinophils % (Manual) Seg Neutrophils # Lymphocytes # (Manual) Eosinophils # (Manual) PT INR D-Dimer POC ABG pH POC ABG pCO2 POC ABG pO2 ABG pO2 ABG HCO3 ABG Base Excess ABG Hemoglobin Oxyhemoglobin Sodium Potassium Chloride Carbon Dioxide BUN Creatinine Glucose POC Glucose 143 H 155 H Calcium Phosphorus Magnesium ALT Alkaline Phosphatase Total Creatine Kinase CK-MB (CK-2) Rel Index Troponin T Albumin LDL Cholesterol Direct PTH Intact Salicylates Acetaminophen Crossmatch See Detail 03/23/19 03/23/19 03/23/19 00:07 04:00 04:00 WBC 11.2 H RBC 2.32 L Hgb 6.4 L Hct 19.7 L* MCH MCHC RDW 19.4 H Lymph % (Auto) [place] % (Auto) Eos % (Auto) Lymph # [place] # Eos # Seg Neutrophils % Seg Neuts % (Manual) Lymphocytes % (Manual) Eosinophils % (Manual) Seg Neutrophils # Lymphocytes # (Manual) Eosinophils # (Manual) PT INR D-Dimer POC ABG pH POC ABG pCO2 POC ABG pO2 ABG pO2 ABG HCO3 ABG Base Excess ABG Hemoglobin Oxyhemoglobin Sodium 147 H Potassium 5.2 H Chloride Carbon Dioxide BUN 86 H Creatinine 3.2 H Glucose 128 H POC Glucose 135 H Calcium 10.3 H Phosphorus Magnesium ALT Alkaline Phosphatase Total Creatine Kinase CK-MB (CK-2) Rel Index Troponin T Albumin LDL Cholesterol Direct PTH Intact Salicylates Acetaminophen Crossmatch 03/23/19 03/23/19 03/23/19 05:21 11:36 11:36 WBC RBC Hgb 7.9 L Hct 25.0 L MCH MCHC RDW Lymph % (Auto) [place] % (Auto) Eos % (Auto) Lymph # [place] # Eos # Seg Neutrophils % Seg Neuts % (Manual) Lymphocytes % (Manual) Eosinophils % (Manual) Seg Neutrophils # Lymphocytes # (Manual) Eosinophils # (Manual) PT INR D-Dimer POC ABG pH POC ABG pCO2 POC ABG pO2 ABG pO2 ABG HCO3 ABG Base Excess ABG Hemoglobin Oxyhemoglobin Sodium Potassium Chloride Carbon Dioxide BUN Creatinine Glucose POC Glucose 132 H 147 H Calcium Phosphorus Magnesium ALT Alkaline Phosphatase Total Creatine Kinase CK-MB (CK-2) Rel Index Troponin T Albumin LDL Cholesterol Direct PTH Intact Salicylates Acetaminophen Crossmatch 03/23/19 03/24/19 03/24/19 17:31 01:22 04:20 WBC 12.2 H RBC 3.05 L Hgb 8.3 L Hct 25.9 L MCH 27 L MCHC RDW 18.7 H Lymph % (Auto) [place] % (Auto) Eos % (Auto) Lymph # [place] # Eos # Seg Neutrophils % Seg Neuts % (Manual) Lymphocytes % (Manual) Eosinophils % (Manual) Seg Neutrophils # Lymphocytes # (Manual) Eosinophils # (Manual) PT INR D-Dimer POC ABG pH POC ABG pCO2 POC ABG pO2 ABG pO2 ABG HCO3 ABG Base Excess ABG Hemoglobin Oxyhemoglobin Sodium Potassium Chloride Carbon Dioxide BUN Creatinine Glucose POC Glucose 182 H 113 H Calcium Phosphorus Magnesium ALT Alkaline Phosphatase Total Creatine Kinase CK-MB (CK-2) Rel Index Troponin T Albumin LDL Cholesterol Direct PTH Intact Salicylates Acetaminophen Crossmatch 03/24/19 03/24/19 03/24/19 04:20 11:59 18:14 WBC RBC Hgb Hct MCH MCHC RDW Lymph % (Auto) [place] % (Auto) Eos % (Auto) Lymph # [place] # Eos # Seg Neutrophils % Seg Neuts % (Manual) Lymphocytes % (Manual) Eosinophils % (Manual) Seg Neutrophils # Lymphocytes # (Manual) Eosinophils # (Manual) PT INR D-Dimer POC ABG pH POC ABG pCO2 POC ABG pO2 ABG pO2 ABG HCO3 ABG Base Excess ABG Hemoglobin Oxyhemoglobin Sodium Potassium Chloride 94.8 L Carbon Dioxide 32 H BUN 53 H Creatinine 2.3 H Glucose POC Glucose 163 H 134 H Calcium Phosphorus Magnesium ALT Alkaline Phosphatase Total Creatine Kinase CK-MB (CK-2) Rel Index Troponin T Albumin LDL Cholesterol Direct PTH Intact Salicylates Acetaminophen Crossmatch 03/24/19 03/25/19 03/25/19 23:15 05:52 12:02 WBC RBC Hgb Hct MCH MCHC RDW Lymph % (Auto) [place] % (Auto) Eos % (Auto) Lymph # [place] # Eos # Seg Neutrophils % Seg Neuts % (Manual) Lymphocytes % (Manual) Eosinophils % (Manual) Seg Neutrophils # Lymphocytes # (Manual) Eosinophils # (Manual) PT INR D-Dimer POC ABG pH POC ABG pCO2 POC ABG pO2 ABG pO2 ABG HCO3 ABG Base Excess ABG Hemoglobin Oxyhemoglobin Sodium Potassium Chloride Carbon Dioxide BUN Creatinine Glucose POC Glucose 129 H 123 H 125 H Calcium Phosphorus Magnesium ALT Alkaline Phosphatase Total Creatine Kinase CK-MB (CK-2) Rel Index Troponin T Albumin LDL Cholesterol Direct PTH Intact Salicylates Acetaminophen Crossmatch 03/25/19 03/26/19 03/26/19 17:27 00:30 05:35 WBC RBC 3.01 L Hgb 8.1 L Hct 25.7 L MCH 27 L MCHC RDW 19.2 H Lymph % (Auto) 11.4 L [place] % (Auto) Eos % (Auto) 8.0 H Lymph # 1.0 L [place] # Eos # 0.7 H Seg Neutrophils % 73.9 H Seg Neuts % (Manual) Lymphocytes % (Manual) Eosinophils % (Manual) Seg Neutrophils # Lymphocytes # (Manual) Eosinophils # (Manual) PT INR D-Dimer POC ABG pH POC ABG pCO2 POC ABG pO2 ABG pO2 ABG HCO3 ABG Base Excess ABG Hemoglobin Oxyhemoglobin Sodium Potassium Chloride Carbon Dioxide BUN Creatinine Glucose POC Glucose 130 H 129 H Calcium Phosphorus Magnesium ALT Alkaline Phosphatase Total Creatine Kinase CK-MB (CK-2) Rel Index Troponin T Albumin LDL Cholesterol Direct PTH Intact Salicylates Acetaminophen Crossmatch 03/26/19 03/26/19 03/26/19 05:35 05:45 12:16 WBC RBC Hgb Hct MCH MCHC RDW Lymph % (Auto) [place] % (Auto) Eos % (Auto) Lymph # [place] # Eos # Seg Neutrophils % Seg Neuts % (Manual) Lymphocytes % (Manual) Eosinophils % (Manual) Seg Neutrophils # Lymphocytes # (Manual) Eosinophils # (Manual) PT INR D-Dimer POC ABG pH POC ABG pCO2 POC ABG pO2 ABG pO2 ABG HCO3 ABG Base Excess ABG Hemoglobin Oxyhemoglobin Sodium Potassium Chloride 94.9 L Carbon Dioxide 31 H BUN 44 H Creatinine 2.0 H Glucose POC Glucose 118 H 107 H Calcium Phosphorus Magnesium ALT Alkaline Phosphatase Total Creatine Kinase CK-MB (CK-2) Rel Index Troponin T Albumin LDL Cholesterol Direct PTH Intact Salicylates Acetaminophen Crossmatch 03/26/19 03/27/19 03/27/19 17:56 00:36 05:37 WBC RBC Hgb Hct MCH MCHC RDW Lymph % (Auto) [place] % (Auto) Eos % (Auto) Lymph # [place] # Eos # Seg Neutrophils % Seg Neuts % (Manual) Lymphocytes % (Manual) Eosinophils % (Manual) Seg Neutrophils # Lymphocytes # (Manual) Eosinophils # (Manual) PT INR D-Dimer POC ABG pH POC ABG pCO2 POC ABG pO2 ABG pO2 ABG HCO3 ABG Base Excess ABG Hemoglobin Oxyhemoglobin Sodium Potassium Chloride Carbon Dioxide BUN Creatinine Glucose POC Glucose 107 H 110 H 122 H Calcium Phosphorus Magnesium ALT Alkaline Phosphatase Total Creatine Kinase CK-MB (CK-2) Rel Index Troponin T Albumin LDL Cholesterol Direct PTH Intact Salicylates Acetaminophen Crossmatch 03/27/19 03/27/19 03/28/19 11:22 18:00 05:17 WBC RBC Hgb Hct MCH MCHC RDW Lymph % (Auto) [place] % (Auto) Eos % (Auto) Lymph # [place] # Eos # Seg Neutrophils % Seg Neuts % (Manual) Lymphocytes % (Manual) Eosinophils % (Manual) Seg Neutrophils # Lymphocytes # (Manual) Eosinophils # (Manual) PT INR D-Dimer POC ABG pH POC ABG pCO2 POC ABG pO2 ABG pO2 ABG HCO3 ABG Base Excess ABG Hemoglobin Oxyhemoglobin Sodium Potassium Chloride Carbon Dioxide BUN Creatinine Glucose POC Glucose 120 H 111 H 107 H Calcium Phosphorus Magnesium ALT Alkaline Phosphatase Total Creatine Kinase CK-MB (CK-2) Rel Index Troponin T Albumin LDL Cholesterol Direct PTH Intact Salicylates Acetaminophen Crossmatch 03/28/19 03/28/19 03/29/19 12:27 18:08 05:47 WBC RBC Hgb Hct MCH MCHC RDW Lymph % (Auto) [place] % (Auto) Eos % (Auto) Lymph # [place] # Eos # Seg Neutrophils % Seg Neuts % (Manual) Lymphocytes % (Manual) Eosinophils % (Manual) Seg Neutrophils # Lymphocytes # (Manual) Eosinophils # (Manual) PT INR D-Dimer POC ABG pH POC ABG pCO2 POC ABG pO2 ABG pO2 ABG HCO3 ABG Base Excess ABG Hemoglobin Oxyhemoglobin Sodium Potassium Chloride Carbon Dioxide BUN Creatinine Glucose POC Glucose 114 H 121 H 112 H Calcium Phosphorus Magnesium ALT Alkaline Phosphatase Total Creatine Kinase CK-MB (CK-2) Rel Index Troponin T Albumin LDL Cholesterol Direct PTH Intact Salicylates Acetaminophen Crossmatch 03/29/19 03/29/19 03/30/19 12:14 18:08 00:31 WBC RBC Hgb Hct MCH MCHC RDW Lymph % (Auto) [place] % (Auto) Eos % (Auto) Lymph # [place] # Eos # Seg Neutrophils % Seg Neuts % (Manual) Lymphocytes % (Manual) Eosinophils % (Manual) Seg Neutrophils # Lymphocytes # (Manual) Eosinophils # (Manual) PT INR D-Dimer POC ABG pH POC ABG pCO2 POC ABG pO2 ABG pO2 ABG HCO3 ABG Base Excess ABG Hemoglobin Oxyhemoglobin Sodium Potassium Chloride Carbon Dioxide BUN Creatinine Glucose POC Glucose 117 H 140 H 114 H Calcium Phosphorus Magnesium ALT Alkaline Phosphatase Total Creatine Kinase CK-MB (CK-2) Rel Index Troponin T Albumin LDL Cholesterol Direct PTH Intact Salicylates Acetaminophen Crossmatch 03/30/19 03/30/19 03/30/19 10:13 10:13 23:53 WBC RBC 2.81 L Hgb 7.7 L Hct 24.3 L MCH 27 L MCHC RDW 19.0 H Lymph % (Auto) 12.2 L [place] % (Auto) Eos % (Auto) 7.9 H Lymph # 1.0 L [place] # Eos # 0.6 H Seg Neutrophils % 72.3 H Seg Neuts % (Manual) Lymphocytes % (Manual) Eosinophils % (Manual) Seg Neutrophils # Lymphocytes # (Manual) Eosinophils # (Manual) PT INR D-Dimer POC ABG pH POC ABG pCO2 POC ABG pO2 ABG pO2 ABG HCO3 ABG Base Excess ABG Hemoglobin Oxyhemoglobin Sodium Potassium 5.1 H Chloride 96.5 L Carbon Dioxide BUN 73 H Creatinine 3.9 H D Glucose POC Glucose 114 H Calcium 10.3 H Phosphorus 6.30 H Magnesium 2.70 H ALT Alkaline Phosphatase 185 H Total Creatine Kinase CK-MB (CK-2) Rel Index Troponin T Albumin 2.6 L LDL Cholesterol Direct PTH Intact Salicylates Acetaminophen Crossmatch 03/31/19 03/31/19 03/31/19 05:45 10:26 10:26 WBC RBC 3.01 L Hgb 8.2 L Hct 26.4 L MCH 27 L MCHC 31 L RDW 20.3 H Lymph % (Auto) 13.3 L [place] % (Auto) Eos % (Auto) 7.2 H Lymph # 1.1 L [place] # Eos # 0.6 H Seg Neutrophils % 72.1 H Seg Neuts % (Manual) Lymphocytes % (Manual) Eosinophils % (Manual) Seg Neutrophils # Lymphocytes # (Manual) Eosinophils # (Manual) PT INR D-Dimer POC ABG pH POC ABG pCO2 POC ABG pO2 ABG pO2 ABG HCO3 ABG Base Excess ABG Hemoglobin Oxyhemoglobin Sodium Potassium Chloride 96.9 L Carbon Dioxide 33 H BUN 37 H Creatinine 2.4 H Glucose POC Glucose 108 H Calcium 10.3 H Phosphorus Magnesium ALT Alkaline Phosphatase Total Creatine Kinase CK-MB (CK-2) Rel Index Troponin T Albumin LDL Cholesterol Direct PTH Intact Salicylates Acetaminophen Crossmatch 03/31/19 04/01/19 04/01/19 12:38 05:48 12:06 WBC RBC Hgb Hct MCH MCHC RDW Lymph % (Auto) [place] % (Auto) Eos % (Auto) Lymph # [place] # Eos # Seg Neutrophils % Seg Neuts % (Manual) Lymphocytes % (Manual) Eosinophils % (Manual) Seg Neutrophils # Lymphocytes # (Manual) Eosinophils # (Manual) PT INR D-Dimer POC ABG pH POC ABG pCO2 POC ABG pO2 ABG pO2 ABG HCO3 ABG Base Excess ABG Hemoglobin Oxyhemoglobin Sodium Potassium Chloride Carbon Dioxide BUN Creatinine Glucose POC Glucose 108 H 114 H 111 H Calcium Phosphorus Magnesium ALT Alkaline Phosphatase Total Creatine Kinase CK-MB (CK-2) Rel Index Troponin T Albumin LDL Cholesterol Direct PTH Intact Salicylates Acetaminophen Crossmatch 04/01/19 04/02/19 04/04/19 18:24 00:36 23:55 WBC RBC Hgb Hct MCH MCHC RDW Lymph % (Auto) [place] % (Auto) Eos % (Auto) Lymph # [place] # Eos # Seg Neutrophils % Seg Neuts % (Manual) Lymphocytes % (Manual) Eosinophils % (Manual) Seg Neutrophils # Lymphocytes # (Manual) Eosinophils # (Manual) PT INR D-Dimer POC ABG pH POC ABG pCO2 POC ABG pO2 ABG pO2 ABG HCO3 ABG Base Excess ABG Hemoglobin Oxyhemoglobin Sodium Potassium Chloride Carbon Dioxide BUN Creatinine Glucose POC Glucose 113 H 117 H 109 H Calcium Phosphorus Magnesium ALT Alkaline Phosphatase Total Creatine Kinase CK-MB (CK-2) Rel Index Troponin T Albumin LDL Cholesterol Direct PTH Intact Salicylates Acetaminophen Crossmatch 04/06/19 04/06/19 04/06/19 00:11 06:02 23:30 WBC RBC Hgb Hct MCH MCHC RDW Lymph % (Auto) [place] % (Auto) Eos % (Auto) Lymph # [place] # Eos # Seg Neutrophils % Seg Neuts % (Manual) Lymphocytes % (Manual) Eosinophils % (Manual) Seg Neutrophils # Lymphocytes # (Manual) Eosinophils # (Manual) PT INR D-Dimer POC ABG pH POC ABG pCO2 POC ABG pO2 ABG pO2 ABG HCO3 ABG Base Excess ABG Hemoglobin Oxyhemoglobin Sodium Potassium Chloride Carbon Dioxide BUN Creatinine Glucose POC Glucose 116 H 112 H 112 H Calcium Phosphorus Magnesium ALT Alkaline Phosphatase Total Creatine Kinase CK-MB (CK-2) Rel Index Troponin T Albumin LDL Cholesterol Direct PTH Intact Salicylates Acetaminophen Crossmatch
[2019-04-07] MEDS: SODIUM HYPOCHLORITE, DAKIN'S 1/2 STRENGTH (0.25%) 473 ML TOPICAL SOLN TP SCH ×2 (18:00→21:49)
[2019-04-08] MEDS: IPRATROPIUM/ALBUTEROL SULFATE 3 ML AMPUL.NEB IH SCH ×3 (08:02→20:21)
--- NOTE | 2019-04-08 10:03 | Progress Note ---
Assessment and Plan Assessment and plan: Patient is 63-year-old -[place] male patient from [facility] with multiple co-morbidities including blindness, CVA, CHF, PPM/ICD, loop recorder since 2012 that is MRI compatible, IDDM type 2, sepsis left foot ulcer, afib, ESRD with complications on HD TTS, hypertension, AOCD and GERD who presented to the ED with hypotensive after intubation in the emergency room. diagnosed with fluid overload, pleural effusion. Patient has had recurrent admission in the hospital for similar reason and was recently discharged from the hospital following treatment of Severe Sepsis due to Necrotizing Unstagable sacral decubitus ulcer with ostemomylitis, has received multiple courses of broad spectrum abx. Acute hypoxic respiratory failure, status post intubation and ventilatory support, now off vent, on T-piece - Acute respiratory failure on mechanical ventilator >96 hrs Extubated ; history of tracheostomy on T piece With Current management , nebulizers, Currently on trach/peg placed on 03/03. cont oxygen supplement, improving, on t piece, nebulizers, pulmonary critical following - Acute on chronic systolic CHF/ Acute pulmonary edema, HD per schedule - Dilated CMP, EF 35-40% Continue diuresis, supportive care - Acute metabolic encephalopathy, resolved, has baseline Dementia. -ESRD on hemodialysis per schedule nephrology following, for fistulogram 04/07 -Bilateral pneumonia with some small pleural effusions Continue with IV antibiotics improved with HD -Permanent atrial fibrillation and flutter and hypercoaguable state Not on anticoagulation because of anemia thrombocytopenia rate control meds optimized -Diabetes mellitus type 2 Accu-Chek sliding scale coverage Insulin as needed -Schizophrenia:stable -Legally blind, supportive care -hypertension, Monitor BP,'s adjust medications as needed -Hypokalemia; corrected -Pulmonary hypertension; continue current management -Dysphagia s/p PEG tube; PEG tubes per protocol -Sacral decub ulcer; Wound care --Severe malnutrition /hypoalbuminemia with FTT: 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, 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 inpatient hospice was recommended, but family is not agreeable at this time. DNR/DNI History Interval history: no fevers remains demented no vomiting, no agitation, no seizures Hospitalist Physical - Physical exam Narrative exam: Constitutional: no acute distress, opens eyes, says hello Eyes: non-icteric ENT: oropharynx moist Neck: supple Effort: normal Ascultation: Bilateral: other (coarse BS bilaterally) Percussion: Bilateral: not dull Cardiovascular: regular rate and rhythm (no mrg) Gastrointestinal: normoactive bowel sounds, soft, non-tender, non-distended, other (ostomy in place, brown stool) Extremities: no cyanosis, no edema, pink and warm Neurologic: other (mild weakness LUE, o/w nonfocal), demented Psychiatric: other (unable to assess) SKIN; Left 5th finger, stage 4 pressure ulcer,Left heel, deep tissue injury, Sacrum, stage 4 pressure ulcer POA - Constitutional Vitals: Temp Pulse Resp BP Pulse Ox 98.0 F 92 H 20 120/47 100 04/08/19 08:04 04/08/19 09:15 04/08/19 08:24 04/08/19 09:15 04/08/19 08:03 General appearance: Present: no acute distress, well-nourished, other (tracheostomy on T piece) Results - Labs CBC & Chem 7: 03/31/19 10:26 03/31/19 10:26 Labs: Laboratory Last Values WBC 8.3 K/mm3 (4.5-11.0) 03/31/19 10:26 RBC 3.01 M/mm3 (3.65-5.03) L 03/31/19 10:26 Hgb 8.2 gm/dl (11.8-15.2) L 03/31/19 10:26 Hct 26.4 % (35.5-45.6) L 03/31/19 10:26 MCV 88 fl (84-94) 03/31/19 10:26 MCH 27 pg (28-32) L 03/31/19 10: MCHC 31 % (32-34) L 03/31/19 10: RDW 20.3 % (13.2-15.2) H 03/31/19 10: Plt Count 361 K/mm3 (140-440) 03/31/19 10: Lymph % (Auto) 13.3 % (13.4-35.0) L 03/31/19 10: [place] % (Auto) 6.5 % (0.0-7.3) 03/31/19 10: Eos % (Auto) 7.2 % (0.0-4.3) H 03/31/19 10: Baso % (Auto) 0.9 % (0.0-1.8) 03/31/19 10: Lymph # 1.1 K/mm3 (1.2-5.4) L 03/31/19 10: [place] # 0.5 K/mm3 (0.0-0.8) 03/31/19 10: Eos # 0.6 K/mm3 (0.0-0.4) H 03/31/19 10: Baso # 0.1 K/mm3 (0.0-0.1) 03/31/19 10: Add Manual Diff Complete 03/21/19 06:30 Total Counted 100 03/21/19 06:30 Seg Neutrophils % 72.1 % (40.0-70.0) H 03/31/19 10:26 Seg Neuts % (Manual) 81.0 % (40.0-70.0) H 03/21/19 06:30 0 % 03/21/19 06:30 8.0 % (13.4-35.0) L 03/21/19 06:30 Reactive Lymphs % (Man) 0 % 03/21/19 06:30 1.0 % (0.0-7.3) 03/21/19 06:30 8.0 % (0.0-4.3) H 03/21/19 06:30 1.0 % (0.0-1.8) 03/21/19 06:30 1.0 % 03/21/19 06:30 0 % 03/21/19 06:30 0 % 03/21/19 06:30 0 % 03/21/19 06:30 Nucleated RBC % Not Reportable 03/21/19 06:30 Seg Neutrophils # 6.0 K/mm3 (1.8-7.7) 03/31/19 10:26 Seg Neutrophils # Man 6.7 K/mm3 (1.8-7.7) 03/21/19 06:30 Band Neutrophils # 0.0 K/mm3 03/21/19 06:30 0.7 K/mm3 (1.2-5.4) L 03/21/19 06:30 Abs React Lymphs (Man) 0.0 K/mm3 03/21/19 06:30 0.1 K/mm3 (0.0-0.8) 03/21/19 06:30 0.7 K/mm3 (0.0-0.4) H 03/21/19 06:30 0.1 K/mm3 (0.0-0.1) 03/21/19 06:30 0.1 K/mm3 03/21/19 06:30 0.0 K/mm3 03/21/19 06:30 0.0 K/mm3 03/21/19 06:30 Blast Cells # 0.0 K/mm3 03/21/19 06:30 WBC Morphology Not Reportable 03/21/19 06:30 Hypersegmented Neuts Not Reportable 03/21/19 06:30 Hyposegmented Neuts Not Reportable 03/21/19 06:30 Hypogranular Neuts Not Reportable 03/21/19 06:30 Not Reportable 03/21/19 06:30 Not Reportable 03/21/19 06:30 Not Reportable 03/21/19 06:30 Not Reportable 03/21/19 06:30 Not Reportable 03/21/19 06:30 Not Reportable 03/21/19 06:30 Consistent w auto 03/21/19 06:30 Not Reportable 03/21/19 06:30 Plt Clumps, EDTA Not Reportable 03/21/19 06:30 Not Reportable 03/21/19 06:30 Not Reportable 03/21/19 06:30 Not Reportable 03/21/19 06:30 Plt Morphology Comment Not Reportable 03/21/19 06:30 RBC Morphology Not Reportable 03/21/19 06:30 Dimorphic RBCs Not Reportable 03/21/19 06:30 Not Reportable 03/21/19 06:30 Few 03/21/19 06:30 Few 03/21/19 06:30 Few 03/21/19 06:30 Not Reportable 03/21/19 06:30 Not Reportable 03/21/19 06:30 Not Reportable 03/21/19 06:30 Not Reportable 03/21/19 06:30 Not Reportable 03/21/19 06:30 1+ 03/21/19 06:30 Not Reportable 03/21/19 06:30 Few 03/21/19 06:30 Not Reportable 03/21/19 06:30 Not Reportable 03/21/19 06:30 Not Reportable 03/21/19 06:30 Not Reportable 03/21/19 06:30 Not Reportable 03/21/19 06:30 Not Reportable 03/21/19 06:30 Not Reportable 03/21/19 06:30 Acanthocytes (Spur) Not Reportable 03/21/19 06:30 Rouleaux Not Reportable 03/21/19 06:30 Not Reportable 03/21/19 06:30 Not Reportable 03/21/19 06:30 Not Reportable 03/21/19 06:30 Not Reportable 03/21/19 06:30 Hem Pathologist Commnt No 03/21/19 06:30 PT 16.3 Sec. (12.2-14.9) H 03/01/19 09:39 INR 1.35 (0.87-1.13) H 03/01/19 09:39 APTT 33.7 Sec. (24.2-36.6) 02/21/19 18:30 2987.82 ng/mlDDU (0-234) H 02/22/19 05:54 POC ABG pH 7.510 (7.35-7.45) H 03/18/19 06:38 ABG pH 7.424 pH Units (7.350-7.450) 03/19/19 04:23 POC ABG pCO2 38.9 (35-45) 03/18/19 06:38 ABG pCO2 48.0 mm Hg 03/19/19 04:23 POC ABG pO2 164 (80-105) H 03/18/19 06:38 ABG pO2 78.3 mm Hg (80.0-90.0) L 03/19/19 04:23 POC ABG HCO3 31.0 (22-26 mml/L) 03/18/19 06:38 ABG HCO3 30.7 mmol/L (20.0-26.0) H 03/19/19 04:23 POC ABG Total CO2 32 (23-27mmol/L) 03/18/19 06:38 POC ABG O2 Sat 100 03/18/19 06:38 ABG O2 Saturation 97.0 % (95.0-99.0) 03/19/19 04:23 ABG O2 Content 7.9 (0.0-44) 03/19/19 04:23 POC ABG Base Excess 8 ((-2) - (+3)mmol/L) 03/18/19 06:38 ABG Base Excess 5.8 mmol/L (-2.0-3.0) H 03/19/19 04:23 ABG Hemoglobin 5.8 gm/dl (14.0-18.0) L 03/19/19 04:23 ABG Carboxyhemoglobin 2.0 % (0.0-5.0) 03/19/19 04:23 ABG Methemoglobin 0.4 % (0.0-1.5) 03/19/19 04:23 94.6 % (95.0-99.0) L 03/19/19 04:23 35 % 03/19/19 04:23 Sodium 143 mmol/L (137-145) 03/31/19 10:26 Potassium 4.1 mmol/L (3.6-5.0) 03/31/19 10:26 Chloride 96.9 mmol/L (98-107) L 03/31/19 10:26 Carbon Dioxide 33 mmol/L (22-30) H 03/31/19 10:26 17 mmol/L 03/31/19 10:26 BUN 37 mg/dL (9-20) H 03/31/19 10:26 2.4 mg/dL (0.8-1.5) H 03/31/19 10:26 Estimated GFR 33 ml/min 03/31/19 10:26 15 % 03/31/19 10:26 Glucose 86 mg/dL (75-100) 03/31/19 10:26 POC Glucose 126 (70-105) H 04/08/19 06:19 Lactic Acid 1.00 mmol/L (0.7-2.0) 02/21/19 20:58 Calcium 10.3 mg/dL (8.4-10.2) H 03/31/19 10:26 Phosphorus 4.30 mg/dL (2.5-4.5) D 03/31/19 10:26 Magnesium 2.70 mg/dL (1.7-2.3) H 03/30/19 10:13 0.20 mg/dL (0.1-1.2) 03/30/19 10:13 AST 16 units/L (5-40) 03/30/19 10:13 ALT 11 units/L (7-56) 03/30/19 10:13 185 units/L (35-129) H 03/30/19 10:13 28.0 umol/L (25-60) 02/21/19 20:04 64 units/L (55-170) 02/22/19 03:42 CK-MB (CK-2) 3.7 ng/mL (0.0-4.0) 02/22/19 03:42 CK-MB (CK-2) Rel Index 5.7 (0-4) H 02/22/19 03:42 0.193 ng/mL (0.00-0.029) H* 02/22/19 03:42 6.9 g/dL (6.3-8.2) 03/30/19 10:13 2.6 g/dL (3.9-5) L 03/30/19 10:13 0.6 % 03/30/19 10:13 Triglycerides 51 mg/dL (2-149) 02/21/19 18:30 Cholesterol 82 mg/dL (50-199) 02/21/19 18:30 36 mg/dL (50-130) L 02/21/19 18:30 40 mg/dL (40-59) 02/21/19 18:30 2.05 % 02/21/19 18:30 TSH 2.760 mlU/mL (0.270-4.200) 02/21/19 20:04 PTH Intact 267.6 pg/mL (15-65) H 03/02/19 05:15 Salicylates < 0.3 mg/dL (2.8-20.0) L 02/21/19 20:04 Acetaminophen < 5.0 ug/mL (10.0-30.0) L 02/21/19 20:04 Hepatitis A IgM Ab Non-reactive (NonReactive) 03/31/19 22:56 Hep Bs Antigen Non-reactive (Negative) 03/31/19 22:56 Hep B Core IgM Ab Non-reactive (NonReactive) 03/31/19 22:56 Non-reactive (NonReactive) 03/31/19 22:56 Blood Type O POSITIVE 03/22/19 08:48 Antibody Screen Negative 03/22/19 08:48 Crossmatch See Detail 03/22/19 08:48 Active Medications - Current Medications Current Medications: Generic Name Dose Route Start Last Admin Trade Name Freq PRN Reason Stop Dose Admin Albuterol/Ipratropium 1 ampul 02/24/19 20:00 04/08/19 08:02 Duoneb *Not For Prn Use* IH 1 ampul TIDRT SANCHEZ Administration Lipase/Protease/Amylase 1 each 03/05/19 14:04 04/02/19 21:[address] 10,500 Unit FEEDTUBE 1 each PRN PRN Administration For Clogged Feeding Tube Epoetin Solitario 20,000 unit 03/24/19 11:17 04/03/19 21:15 Procrit IV 20,000 unit UMA PRN Administration hemodialysis Famotidine 20 mg 02/23/19 10:00 04/07/19 10:40 Pepcid PO 20 mg DAILY SANCHEZ Administration Hydrophilic Ointment 1 applic 02/21/19 18:24 03/05/19 08:16 Vaseline Lip Therapy TP 1 applic Q2HR PRN Administration Dry Lips Sodium Chloride 100 mls @ 999 mls/hr 02/26/19 09:00 Nacl 0.9% IV UMA PRN Hypotension Insulin Human Regular 0 units 02/26/19 12:00 04/07/19 21:49 Humulin R SUB-Q Not Given Q6HR [facility] Protocol Metoprolol Tartrate 2.5 mg 02/28/19 12:06 03/15/19 05:15 Lopressor IV 2.5 mg Q4HR PRN Administration Tachycardia Multi-Ingred Cream/Lotion/Oil/Oint 1 applic 02/21/19 18:24 03/29/19 21:40 Artificial Tears Ophth Oint OU 1 applic Q4HR PRN Administration Dry Eye(s) Risperidone 1 mg 02/25/19 13:00 04/07/19 10:40 Risperdal PO 1 mg DAILY SANCHEZ Administration Scopolamine 1 each 03/13/19 04:00 04/06/19 05:37 Transderm-Scop TD 1 each Q3D SANCHEZ Administration Sertraline HCl 100 mg 02/25/19 13:00 04/07/19 10:40 Zoloft PO 100 mg DAILY SANCHEZ Administration Sodium Hypochlorite 1 applic 04/01/19 13:00 04/07/19 21:49 Dakin's Half Strength TP 1 applicatio BID SANCHEZ Administration Nutrition/Malnutrition Assess - Dietary Evaluation Nutrition/Malnutrition Findings: Nutrition Notes Start: 02/22/19 12:51 Freq: Status: Active Protocol: Document 04/03/19 12:20 RS (Rec: 04/03/19 12:27 RS [id number]) Co-Sign 04/03/19 12:20 LP Nutrition Notes Initial or Follow up Reassessment Current Diagnosis Diabetes,Hypertension Other Pertinent Diagnosis Sacral PU, ESRD on HD (T/Thurs /Sat), Schizophrenia,Blind in L eye,S/P trach Current Diet Nepro with Carbsteady 1.8 at 50 ml/hr Labs/Tests Reviewed Pertinent Medications Reviewed Height 5 ft 10 in Weight 74.7 kg [place] Body Weight (kg) 75.45 BMI 23.6 Subjective/Other Information Nepro running at 50 ml/hr at time of visit. Pt is tolerating TF. Percent of energy/protein needs met: 96%/100% Burn Absent Trauma Absent #2 Nutrition Diagnosis Increased nutrient needs ( specify in comment below) Diagnosis Progress(for reassessment Continues documentation) #1 Nutrition Diagnosis Inadequate oral intake Diagnosis Progress(for reassessment Continues documentation) Is patient on ventilator? No Is Patient Ambulatory and/or Out of Bed No REE-([facility]-confined to bed) 1857.144 Kcal/Kg value to use for calculation 30 Approximate Energy Requirements Using 2241 kcal/Kg Calculation Used for Recommendations Kcal/kg Additional Notes Protein Needs: 90-112g (1.2-1. 5g/kg) Fluid Needs: 1-1.5 L/day Nutrition Intervention Change Diet Order: Continue TF Nutrition Support: Nepro with Carbsteady 1.8 at 50 ml/hr Flush 200 ml q4hr Kcal 2,160 Protein (gm) 97 Fluid (mL) 872 Add Supplement/Snack (indicate name/kcal Abhilash BID /protein ) Provides kCal: 190 Provides Protein (gm) 5 Goal #1 TF tolerance Goal #2 Continue to meet at least 80% of calorie and protein needs via TF Anticipated Discharge Needs: TF Follow-Up By: 04/10/19 Additional Comments F/U for new TF rate/tolerance
[2019-04-08] MEDS: EPOETIN ALFA 20,000 UNIT/1 ML INJ IV PRN (10:56)
--- NOTE | 2019-04-08 12:21 | Progress Note ---
Assessment and Plan Assessment: * End stage renal disease (outpatient TTS schedule) * Acute hypoxic respiratory failure s/p trach * KEON pneumonia --Sputum cx: MDR Acinetobacter * Cardiomyopathy - EF 35-40% * Atrial fibrillation * History of CVA * Anemia secondary to ESRD * Secondary hyperparathyroidism Plan * Continue HD MWF via [facility] AVG * UF as tolerated * Nutrition per primary team * Dose medications for renal function * Epogen 20k TIW Subjective Date of service: 04/08/19 Principal diagnosis: Respiratory failure, acute on chronic systolic HF, ESRD Interval history: No acute events overnight. Objective - Vital Signs Vital signs: Vital Signs - 12hr 04/08/19 04/08/19 04/08/19 02:00 03:28 07:56 Temperature 97.8 F Pulse Rate 98 H Pulse Rate [ Anterior Bilateral Throughout] Respiratory 18 Rate Respiratory Rate [Anterior Bilateral Throughout] Blood Pressure 110/62 89/64 O2 Sat by Pulse 100 Oximetry O2 Sat by Pulse 100 Oximetry [ Assessment] 04/08/19 04/08/19 04/08/19 08:03 08:04 08:20 Temperature 98.0 F Pulse Rate 88 Pulse Rate [ Anterior Bilateral Throughout] Respiratory Rate Respiratory Rate [Anterior Bilateral Throughout] Blood Pressure 103/48 O2 Sat by Pulse 100 Oximetry O2 Sat by Pulse Oximetry [ Assessment] 04/08/19 04/08/19 04/08/19 08:24 08:30 08:45 Temperature 98.0 F Pulse Rate 94 H 95 H Pulse Rate [ 78 Anterior Bilateral Throughout] Respiratory 20 Rate Respiratory 20 Rate [Anterior Bilateral Throughout] Blood Pressure 97/38 96/28 O2 Sat by Pulse Oximetry O2 Sat by Pulse Oximetry [ Assessment] 04/08/19 04/08/19 04/08/19 09:00 09:15 09:30 Temperature Pulse Rate 100 H 92 H 100 H Pulse Rate [ Anterior Bilateral Throughout] Respiratory Rate Respiratory Rate [Anterior Bilateral Throughout] Blood Pressure 90/54 120/47 90/54 O2 Sat by Pulse Oximetry O2 Sat by Pulse Oximetry [ Assessment] 04/08/19 04/08/19 04/08/19 09:45 10:00 10:15 Temperature Pulse Rate 74 85 75 Pulse Rate [ Anterior Bilateral Throughout] Respiratory 20 Rate Respiratory Rate [Anterior Bilateral Throughout] Blood Pressure 101/49 125/56 80/37 O2 Sat by Pulse Oximetry O2 Sat by Pulse Oximetry [ Assessment] 04/08/19 04/08/19 04/08/19 10:20 10:30 11:00 Temperature Pulse Rate 103 H 89 86 Pulse Rate [ Anterior Bilateral Throughout] Respiratory Rate Respiratory Rate [Anterior Bilateral Throughout] Blood Pressure 97/51 109/53 116/38 O2 Sat by Pulse Oximetry O2 Sat by Pulse Oximetry [ Assessment] 04/08/19 04/08/19 04/08/19 11:15 11:20 11:30 Temperature Pulse Rate 103 H 76 100 H Pulse Rate [ Anterior Bilateral Throughout] Respiratory Rate Respiratory Rate [Anterior Bilateral Throughout] Blood Pressure 87/55 91/18 98/56 O2 Sat by Pulse Oximetry O2 Sat by Pulse Oximetry [ Assessment] 04/08/19 04/08/19 11:45 11:54 Temperature 98.0 F Pulse Rate 93 H 94 H Pulse Rate [ Anterior Bilateral Throughout] Respiratory 20 Rate Respiratory Rate [Anterior Bilateral Throughout] Blood Pressure 100/52 107/51 O2 Sat by Pulse Oximetry O2 Sat by Pulse Oximetry [ Assessment] - General Appearance General appearance: chronically ill EENT: ATNC, other (trach) Respiratory: Present: Decreased Breath Sounds Cardiology: regular, S1S2 Gastrointestinal: other (PEG, ostomy) Integumentary: warm and dry Musculoskeletal: other (no edema) Psychiatric: cooperative - Lab 03/31/19 10:26 03/31/19 10:26 Most recent lab results ABG pH 7.424 pH Units (7.350-7.450) 03/19/19 04:23 ABG pCO2 48.0 mm Hg 03/19/19 04:23 ABG pO2 78.3 mm Hg (80.0-90.0) L 03/19/19 04:23 ABG HCO3 30.7 mmol/L (20.0-26.0) H 03/19/19 04:23 ABG O2 Saturation 97.0 % (95.0-99.0) 03/19/19 04:23 Calcium 10.3 mg/dL (8.4-10.2) H 03/31/19 10:26 Phosphorus 4.30 mg/dL (2.5-4.5) D 03/31/19 10:26 Magnesium 2.70 mg/dL (1.7-2.3) H 03/30/19 10:13 Medications & Allergies - Medications Allergies/Adverse Reactions: Allergies haloperidol [From Haldol] Adverse Reaction (Verified 03/13/18 12:10) Unknown haloperidol lactate [From Haldol] Adverse Reaction (Verified 03/13/18 12:10) Unknown Home Medications: Home Medications Medication Instructions Recorded Confirmed Last Taken Type risperiDONE [RisperDAL] 1 mg PO QAM 03/13/18 02/21/19 Unknown History Sertraline [Zoloft] 100 mg PO QDAY 08/26/18 02/21/19 Unknown History Polyethylene Glycol 3350 [Miralax 17 gm PO QDAY #30 packet 11/05/18 02/21/19 Unknown Rx 3350] Aspirin EC [Halfprin EC] 81 mg PO DAILY #30 11/19/18 02/21/19 Unknown Rx Docusate Sodium [Colace CAP] 100 mg PO BID #60 11/19/18 02/21/19 Unknown Rx Folic Acid [Folvite] 1 mg PO DAILY #30 tab 11/19/18 02/21/19 Unknown Rx Famotidine [Pepcid] 20 mg PO DAILY tablet 12/08/18 02/21/19 Unknown Rx Gabapentin [Neurontin] 100 mg PO QHS capsule 12/08/18 02/21/19 Unknown Rx Metoprolol [Lopressor TAB] 50 mg PO BID 30 Days tablet 12/08/18 02/21/19 Unknown Rx Sevelamer Carbonate [Renvela] 800 mg PO TIDWM tablet 12/08/18 02/21/19 Unknown Rx hydrALAZINE [Apresoline TAB] 100 mg PO Q8HR #120 tablet 12/08/18 02/21/19 Unknown Rx Acetaminophen [Acetaminophen TAB] 650 mg PO Q12H PRN 12/15/18 02/21/19 Unknown History Glucagon,Human Recombinant 1 mg IJ Q15MIN PRN 12/15/18 02/21/19 Unknown History [Glucagon Emergency Kit] Insulin Aspart [NovoLOG 100 See Protocol SQ QWEEK 12/15/18 02/21/19 Unknown History UNITS/ML VIAL] Active Medications: Generic Name Dose Route Start Last Admin Trade Name Freq PRN Reason Stop Dose Admin Albuterol/Ipratropium 1 ampul 02/24/19 20:00 04/08/19 08:02 Duoneb *Not For Prn Use* IH 1 ampul TIDRT SANCHEZ Administration Lipase/Protease/Amylase 1 each 03/05/19 14:04 04/02/19 21:34 Pancrejewel Barrientos 10,500 Unit FEEDTUBE 1 each PRN PRN Administration For Clogged Feeding Tube Epoetin Solitario 20,000 unit 03/24/19 11:17 04/08/19 10:56 Procrit IV 20,000 unit UMA PRN Administration hemodialysis Famotidine 20 mg 02/23/19 10:00 04/07/19 10:40 Pepcid PO 20 mg DAILY SANCHEZ Administration Hydrophilic Ointment 1 applic 02/21/19 18:24 03/05/19 08:16 Vaseline Lip Therapy TP 1 applic Q2HR PRN Administration Dry Lips Sodium Chloride 100 mls @ 999 mls/hr 02/26/19 09:00 Nacl 0.9% IV UMA PRN Hypotension Insulin Human Regular 0 units 02/26/19 12:00 04/07/19 21:49 Humulin R SUB-Q Not Given Q6HR [facility] Protocol Metoprolol Tartrate 2.5 mg 02/28/19 12:06 03/15/19 05:15 Lopressor IV 2.5 mg Q4HR PRN Administration Tachycardia Multi-Ingred Cream/Lotion/Oil/Oint 1 applic 02/21/19 18:24 03/29/19 21:40 Artificial Tears Ophth Oint OU 1 applic Q4HR PRN Administration Dry Eye(s) Risperidone 1 mg 02/25/19 13:00 04/07/19 10:40 Risperdal PO 1 mg DAILY SANCHEZ Administration Scopolamine 1 each 03/13/19 04:00 04/06/19 05:37 Transderm-Scop TD 1 each Q3D SANCHEZ Administration Sertraline HCl 100 mg 02/25/19 13:00 04/07/19 10:40 Zoloft PO 100 mg DAILY SANCHEZ Administration Sodium Hypochlorite 1 applic 04/01/19 13:00 04/07/19 21:49 Dakin's Half Strength TP 1 applicatio BID SANCHEZ Administration
--- NOTE | 2019-04-08 12:47 | Progress Note ---
Assessment and Plan 63 y/o male with multiple medical issues admitted with altered mental status, acute respiratory failure requiring mechanical ventilation No new recommendations for today. Please see below. 1. Finished therapy for Acinetobacter. 2. Continue T-piece 3. HD per renal 4. Awaiting placement. Subjective Date of service: 04/08/19 Principal diagnosis: Respiratory failure, acute on chronic systolic HF, ESRD Interval history: No acute events. Stable pulm status. Still waiting on placement. Objective Vital Signs - 12hr 04/08/19 04/08/19 04/08/19 02:00 03:28 07:56 Temperature 97.8 F Pulse Rate 98 H Pulse Rate [ Anterior Bilateral Throughout] Respiratory 18 Rate Respiratory Rate [Anterior Bilateral Throughout] Blood Pressure 110/62 89/64 O2 Sat by Pulse 100 Oximetry O2 Sat by Pulse 100 Oximetry [ Assessment] 04/08/19 04/08/19 04/08/19 08:03 08:04 08:20 Temperature 98.0 F Pulse Rate 88 Pulse Rate [ Anterior Bilateral Throughout] Respiratory Rate Respiratory Rate [Anterior Bilateral Throughout] Blood Pressure 103/48 O2 Sat by Pulse 100 Oximetry O2 Sat by Pulse Oximetry [ Assessment] 04/08/19 04/08/19 04/08/19 08:24 08:30 08:45 Temperature 98.0 F Pulse Rate 94 H 95 H Pulse Rate [ 78 Anterior Bilateral Throughout] Respiratory 20 Rate Respiratory 20 Rate [Anterior Bilateral Throughout] Blood Pressure 97/38 96/28 O2 Sat by Pulse Oximetry O2 Sat by Pulse Oximetry [ Assessment] 04/08/19 04/08/19 04/08/19 09:00 09:15 09:30 Temperature Pulse Rate 100 H 92 H 100 H Pulse Rate [ Anterior Bilateral Throughout] Respiratory Rate Respiratory Rate [Anterior Bilateral Throughout] Blood Pressure 90/54 120/47 90/54 O2 Sat by Pulse Oximetry O2 Sat by Pulse Oximetry [ Assessment] 04/08/19 04/08/19 04/08/19 09:45 10:00 10:15 Temperature Pulse Rate 74 85 75 Pulse Rate [ Anterior Bilateral Throughout] Respiratory 20 Rate Respiratory Rate [Anterior Bilateral Throughout] Blood Pressure 101/49 125/56 80/37 O2 Sat by Pulse Oximetry O2 Sat by Pulse Oximetry [ Assessment] 04/08/19 04/08/19 04/08/19 10:20 10:30 11:00 Temperature Pulse Rate 103 H 89 86 Pulse Rate [ Anterior Bilateral Throughout] Respiratory Rate Respiratory Rate [Anterior Bilateral Throughout] Blood Pressure 97/51 109/53 116/38 O2 Sat by Pulse Oximetry O2 Sat by Pulse Oximetry [ Assessment] 04/08/19 04/08/19 04/08/19 11:15 11:20 11:30 Temperature Pulse Rate 103 H 76 100 H Pulse Rate [ Anterior Bilateral Throughout] Respiratory Rate Respiratory Rate [Anterior Bilateral Throughout] Blood Pressure 87/55 91/18 98/56 O2 Sat by Pulse Oximetry O2 Sat by Pulse Oximetry [ Assessment] 04/08/19 04/08/19 11:45 11:54 Temperature 98.0 F Pulse Rate 93 H 94 H Pulse Rate [ Anterior Bilateral Throughout] Respiratory 20 Rate Respiratory Rate [Anterior Bilateral Throughout] Blood Pressure 100/52 107/51 O2 Sat by Pulse Oximetry O2 Sat by Pulse Oximetry [ Assessment] Constitutional: no acute distress, alert Eyes: non-icteric ENT: oropharynx moist Neck: supple Effort: normal Ascultation: Bilateral: diminished breath sounds, other (coarse BS bilaterally) Percussion: Bilateral: not dull Cardiovascular: other (tachy, RR; no mrg) Gastrointestinal: normoactive bowel sounds, soft, non-tender, non-distended, other (ostomy in place, brown stool) Extremities: no cyanosis, no edema, pink and warm Neurologic: other (mild weakness LUE, o/w nonfocal) Psychiatric: other (unable to assess) CBC and BMP: 03/31/19 10:26 03/31/19 10:26 ABG, PT/INR, D-dimer: ABG POC ABG pH 7.510 (7.35-7.45) H 03/18/19 06:38 ABG pH 7.424 pH Units (7.350-7.450) 03/19/19 04:23 POC ABG pCO2 38.9 (35-45) 03/18/19 06:38 ABG pCO2 48.0 mm Hg 03/19/19 04:23 POC ABG pO2 164 (80-105) H 03/18/19 06:38 ABG pO2 78.3 mm Hg (80.0-90.0) L 03/19/19 04:23 POC ABG HCO3 31.0 (22-26 mml/L) 03/18/19 06:38 POC ABG Total CO2 32 (23-27mmol/L) 03/18/19 06:38 POC ABG O2 Sat 100 03/18/19 06:38 ABG O2 Saturation 97.0 % (95.0-99.0) 03/19/19 04:23 PT/INR, D-dimer PT 16.3 Sec. (12.2-14.9) H 03/01/19 09:39 INR 1.35 (0.87-1.13) H 03/01/19 09:39 2987.82 ng/mlDDU (0-234) H 02/22/19 05:54 Abnormal lab findings: Abnormal Labs 02/21/19 02/21/19 02/21/19 18:30 18:30 18:30 WBC RBC 3.26 L Hgb 8.8 L Hct 29.0 L MCH 27 L MCHC 30 L RDW 19.1 H Lymph % (Auto) 6.1 L Williamson % (Auto) Eos % (Auto) Lymph # 0.4 L Williamson # Eos # Seg Neutrophils % 86.2 H Seg Neuts % (Manual) Lymphocytes % (Manual) Eosinophils % (Manual) Seg Neutrophils # Lymphocytes # (Manual) Eosinophils # (Manual) PT INR D-Dimer POC ABG pH POC ABG pCO2 POC ABG pO2 ABG pO2 ABG HCO3 ABG Base Excess ABG Hemoglobin Oxyhemoglobin Sodium 133 L Potassium 3.3 L Chloride 93.1 L Carbon Dioxide 33 H BUN Creatinine Glucose 161 H POC Glucose Calcium Phosphorus Magnesium ALT Alkaline Phosphatase 136 H Total Creatine Kinase 37 L CK-MB (CK-2) Rel Index Troponin T 0.192 H* Albumin 2.4 L LDL Cholesterol Direct 36 L PTH Intact Salicylates Acetaminophen Crossmatch 02/21/19 02/21/19 02/21/19 18:42 20:04 20:04 WBC RBC Hgb Hct MCH MCHC RDW Lymph % (Auto) Williamson % (Auto) Eos % (Auto) Lymph # Williamson # Eos # Seg Neutrophils % Seg Neuts % (Manual) Lymphocytes % (Manual) Eosinophils % (Manual) Seg Neutrophils # Lymphocytes # (Manual) Eosinophils # (Manual) PT INR D-Dimer POC ABG pH POC ABG pCO2 56.7 H POC ABG pO2 291 H ABG pO2 ABG HCO3 ABG Base Excess ABG Hemoglobin Oxyhemoglobin Sodium Potassium Chloride Carbon Dioxide BUN Creatinine Glucose POC Glucose Calcium Phosphorus Magnesium ALT Alkaline Phosphatase Total Creatine Kinase CK-MB (CK-2) Rel Index Troponin T Albumin LDL Cholesterol Direct PTH Intact Salicylates < 0.3 L Acetaminophen < 5.0 L Crossmatch 02/21/19 02/22/19 02/22/19 22:35 03:42 03:42 WBC RBC 3.20 L Hgb 8.8 L Hct 27.6 L MCH MCHC RDW 18.9 H Lymph % (Auto) 7.4 L Williamson % (Auto) Eos % (Auto) Lymph # 0.7 L Williamson # Eos # Seg Neutrophils % 84.7 H Seg Neuts % (Manual) Lymphocytes % (Manual) Eosinophils % (Manual) Seg Neutrophils # Lymphocytes # (Manual) Eosinophils # (Manual) PT INR D-Dimer POC ABG pH POC ABG pCO2 POC ABG pO2 ABG pO2 ABG HCO3 ABG Base Excess ABG Hemoglobin Oxyhemoglobin Sodium 134 L Potassium 2.6 L* D Chloride Carbon Dioxide BUN Creatinine Glucose POC Glucose Calcium Phosphorus Magnesium ALT Alkaline Phosphatase Total Creatine Kinase CK-MB (CK-2) Rel Index 5.2 H Troponin T 0.202 H* Albumin LDL Cholesterol Direct PTH Intact Salicylates Acetaminophen Crossmatch 02/22/19 02/22/19 02/22/19 03:42 05:54 09:04 WBC RBC Hgb Hct MCH MCHC RDW Lymph % (Auto) Williamson % (Auto) Eos % (Auto) Lymph # Williamson # Eos # Seg Neutrophils % Seg Neuts % (Manual) Lymphocytes % (Manual) Eosinophils % (Manual) Seg Neutrophils # Lymphocytes # (Manual) Eosinophils # (Manual) PT INR D-Dimer 2987.82 H POC ABG pH 7.451 H POC ABG pCO2 POC ABG pO2 ABG pO2 ABG HCO3 ABG Base Excess ABG Hemoglobin Oxyhemoglobin Sodium Potassium Chloride Carbon Dioxide BUN Creatinine Glucose POC Glucose Calcium Phosphorus Magnesium ALT Alkaline Phosphatase Total Creatine Kinase CK-MB (CK-2) Rel Index 5.7 H Troponin T 0.193 H* Albumin LDL Cholesterol Direct PTH Intact Salicylates Acetaminophen Crossmatch 02/22/19 02/22/19 02/23/19 10:36 23:56 00:52 WBC RBC Hgb Hct MCH MCHC RDW Lymph % (Auto) Williamson % (Auto) Eos % (Auto) Lymph # Williamson # Eos # Seg Neutrophils % Seg Neuts % (Manual) Lymphocytes % (Manual) Eosinophils % (Manual) Seg Neutrophils # Lymphocytes # (Manual) Eosinophils # (Manual) PT INR D-Dimer POC ABG pH POC ABG pCO2 POC ABG pO2 ABG pO2 ABG HCO3 ABG Base Excess ABG Hemoglobin Oxyhemoglobin Sodium Potassium 3.1 L Chloride Carbon Dioxide BUN Creatinine Glucose POC Glucose 58 L 111 H Calcium Phosphorus Magnesium ALT Alkaline Phosphatase Total Creatine Kinase CK-MB (CK-2) Rel Index Troponin T Albumin LDL Cholesterol Direct PTH Intact Salicylates Acetaminophen Crossmatch 02/23/19 02/23/19 02/23/19 05:00 06:35 14:26 WBC RBC Hgb Hct MCH MCHC RDW Lymph % (Auto) Williamson % (Auto) Eos % (Auto) Lymph # Williamson # Eos # Seg Neutrophils % Seg Neuts % (Manual) Lymphocytes % (Manual) Eosinophils % (Manual) Seg Neutrophils # Lymphocytes # (Manual) Eosinophils # (Manual) PT INR D-Dimer POC ABG pH POC ABG pCO2 POC ABG pO2 ABG pO2 ABG HCO3 ABG Base Excess ABG Hemoglobin Oxyhemoglobin Sodium 135 L Potassium 3.1 L Chloride Carbon Dioxide BUN 21 H Creatinine 2.0 H Glucose 57 L POC Glucose 64 L 62 L Calcium Phosphorus Magnesium ALT Alkaline Phosphatase Total Creatine Kinase CK-MB (CK-2) Rel Index Troponin T Albumin LDL Cholesterol Direct PTH Intact Salicylates Acetaminophen Crossmatch 02/24/19 02/24/19 02/24/19 02:11 04:12 04:55 WBC RBC 2.84 L Hgb 7.8 L Hct 24.5 L MCH MCHC RDW 19.5 H Lymph % (Auto) Williamson % (Auto) Eos % (Auto) Lymph # Williamson # Eos # Seg Neutrophils % Seg Neuts % (Manual) Lymphocytes % (Manual) Eosinophils % (Manual) Seg Neutrophils # Lymphocytes # (Manual) Eosinophils # (Manual) PT INR D-Dimer POC ABG pH 7.511 H POC ABG pCO2 33.9 L POC ABG pO2 62 L ABG pO2 ABG HCO3 ABG Base Excess ABG Hemoglobin Oxyhemoglobin Sodium Potassium Chloride Carbon Dioxide BUN Creatinine Glucose POC Glucose 69 L Calcium Phosphorus Magnesium ALT Alkaline Phosphatase Total Creatine Kinase CK-MB (CK-2) Rel Index Troponin T Albumin LDL Cholesterol Direct PTH Intact Salicylates Acetaminophen Crossmatch 02/24/19 02/24/19 02/25/19 04:55 05:41 04:45 WBC RBC Hgb Hct MCH MCHC RDW Lymph % (Auto) Williamson % (Auto) Eos % (Auto) Lymph # Williamson # Eos # Seg Neutrophils % Seg Neuts % (Manual) Lymphocytes % (Manual) Eosinophils % (Manual) Seg Neutrophils # Lymphocytes # (Manual) Eosinophils # (Manual) PT INR D-Dimer POC ABG pH 7.466 H POC ABG pCO2 POC ABG pO2 75 L ABG pO2 ABG HCO3 ABG Base Excess ABG Hemoglobin Oxyhemoglobin Sodium Potassium Chloride Carbon Dioxide BUN Creatinine 1.8 H Glucose 73 L POC Glucose 127 H Calcium Phosphorus Magnesium ALT Alkaline Phosphatase Total Creatine Kinase CK-MB (CK-2) Rel Index Troponin T Albumin LDL Cholesterol Direct PTH Intact Salicylates Acetaminophen Crossmatch 02/25/19 02/25/19 02/26/19 16:34 21:33 03:45 WBC RBC 2.96 L Hgb 8.0 L Hct 25.8 L MCH 27 L MCHC 31 L RDW 20.0 H Lymph % (Auto) Williamson % (Auto) Eos % (Auto) Lymph # Williamson # Eos # Seg Neutrophils % Seg Neuts % (Manual) Lymphocytes % (Manual) Eosinophils % (Manual) Seg Neutrophils # Lymphocytes # (Manual) Eosinophils # (Manual) PT INR D-Dimer POC ABG pH POC ABG pCO2 POC ABG pO2 ABG pO2 ABG HCO3 ABG Base Excess ABG Hemoglobin Oxyhemoglobin Sodium Potassium Chloride Carbon Dioxide BUN Creatinine Glucose POC Glucose 141 H 106 H Calcium Phosphorus Magnesium ALT Alkaline Phosphatase Total Creatine Kinase CK-MB (CK-2) Rel Index Troponin T Albumin LDL Cholesterol Direct PTH Intact Salicylates Acetaminophen Crossmatch 02/26/19 02/26/19 02/26/19 03:45 04:13 07:53 WBC RBC Hgb Hct MCH MCHC RDW Lymph % (Auto) Williamson % (Auto) Eos % (Auto) Lymph # Williamson # Eos # Seg Neutrophils % Seg Neuts % (Manual) Lymphocytes % (Manual) Eosinophils % (Manual) Seg Neutrophils # Lymphocytes # (Manual) Eosinophils # (Manual) PT INR D-Dimer POC ABG pH 7.470 H POC ABG pCO2 POC ABG pO2 ABG pO2 ABG HCO3 ABG Base Excess ABG Hemoglobin Oxyhemoglobin Sodium Potassium Chloride Carbon Dioxide BUN Creatinine 1.8 H Glucose POC Glucose 110 H Calcium Phosphorus Magnesium ALT Alkaline Phosphatase Total Creatine Kinase CK-MB (CK-2) Rel Index Troponin T Albumin LDL Cholesterol Direct PTH Intact Salicylates Acetaminophen Crossmatch 02/26/19 02/26/19 02/27/19 11:56 17:43 00:12 WBC RBC Hgb Hct MCH MCHC RDW Lymph % (Auto) Williamson % (Auto) Eos % (Auto) Lymph # Williamson # Eos # Seg Neutrophils % Seg Neuts % (Manual) Lymphocytes % (Manual) Eosinophils % (Manual) Seg Neutrophils # Lymphocytes # (Manual) Eosinophils # (Manual) PT INR D-Dimer POC ABG pH POC ABG pCO2 POC ABG pO2 ABG pO2 ABG HCO3 ABG Base Excess ABG Hemoglobin Oxyhemoglobin Sodium Potassium Chloride Carbon Dioxide BUN Creatinine Glucose POC Glucose 112 H 127 H 127 H Calcium Phosphorus Magnesium ALT Alkaline Phosphatase Total Creatine Kinase CK-MB (CK-2) Rel Index Troponin T Albumin LDL Cholesterol Direct PTH Intact Salicylates Acetaminophen Crossmatch 02/27/19 02/27/19 02/27/19 04:35 13:15 18:02 WBC RBC Hgb Hct MCH MCHC RDW Lymph % (Auto) Williamson % (Auto) Eos % (Auto) Lymph # Williamson # Eos # Seg Neutrophils % Seg Neuts % (Manual) Lymphocytes % (Manual) Eosinophils % (Manual) Seg Neutrophils # Lymphocytes # (Manual) Eosinophils # (Manual) PT INR D-Dimer POC ABG pH 7.483 H POC ABG pCO2 POC ABG pO2 61 L ABG pO2 ABG HCO3 ABG Base Excess ABG Hemoglobin Oxyhemoglobin Sodium Potassium Chloride Carbon Dioxide BUN Creatinine Glucose POC Glucose 143 H 106 H Calcium Phosphorus Magnesium ALT Alkaline Phosphatase Total Creatine Kinase CK-MB (CK-2) Rel Index Troponin T Albumin LDL Cholesterol Direct PTH Intact Salicylates Acetaminophen Crossmatch 02/28/19 02/28/19 02/28/19 05:50 11:59 17:52 WBC RBC Hgb Hct MCH MCHC RDW Lymph % (Auto) Williamson % (Auto) Eos % (Auto) Lymph # Williamson # Eos # Seg Neutrophils % Seg Neuts % (Manual) Lymphocytes % (Manual) Eosinophils % (Manual) Seg Neutrophils # Lymphocytes # (Manual) Eosinophils # (Manual) PT INR D-Dimer POC ABG pH POC ABG pCO2 POC ABG pO2 ABG pO2 ABG HCO3 ABG Base Excess ABG Hemoglobin Oxyhemoglobin Sodium Potassium Chloride Carbon Dioxide BUN Creatinine Glucose POC Glucose 134 H 128 H 142 H Calcium Phosphorus Magnesium ALT Alkaline Phosphatase Total Creatine Kinase CK-MB (CK-2) Rel Index Troponin T Albumin LDL Cholesterol Direct PTH Intact Salicylates Acetaminophen Crossmatch 02/28/19 03/01/19 03/01/19 23:13 05:40 09:39 WBC RBC Hgb Hct MCH MCHC RDW Lymph % (Auto) Williamson % (Auto) Eos % (Auto) Lymph # Williamson # Eos # Seg Neutrophils % Seg Neuts % (Manual) Lymphocytes % (Manual) Eosinophils % (Manual) Seg Neutrophils # Lymphocytes # (Manual) Eosinophils # (Manual) PT 16.3 H INR 1.35 H D-Dimer POC ABG pH POC ABG pCO2 POC ABG pO2 ABG pO2 ABG HCO3 ABG Base Excess ABG Hemoglobin Oxyhemoglobin Sodium Potassium Chloride Carbon Dioxide BUN Creatinine Glucose POC Glucose 112 H 111 H Calcium Phosphorus Magnesium ALT Alkaline Phosphatase Total Creatine Kinase CK-MB (CK-2) Rel Index Troponin T Albumin LDL Cholesterol Direct PTH Intact Salicylates Acetaminophen Crossmatch 03/01/19 03/01/19 03/01/19 11:56 13:54 17:59 WBC RBC Hgb Hct MCH MCHC RDW Lymph % (Auto) Williamson % (Auto) Eos % (Auto) Lymph # Williamson # Eos # Seg Neutrophils % Seg Neuts % (Manual) Lymphocytes % (Manual) Eosinophils % (Manual) Seg Neutrophils # Lymphocytes # (Manual) Eosinophils # (Manual) PT INR D-Dimer POC ABG pH POC ABG pCO2 POC ABG pO2 ABG pO2 ABG HCO3 ABG Base Excess ABG Hemoglobin Oxyhemoglobin Sodium Potassium Chloride Carbon Dioxide BUN 33 H Creatinine 2.8 H D Glucose 176 H POC Glucose 199 H 147 H Calcium Phosphorus Magnesium ALT Alkaline Phosphatase Total Creatine Kinase CK-MB (CK-2) Rel Index Troponin T Albumin LDL Cholesterol Direct PTH Intact Salicylates Acetaminophen Crossmatch 03/02/19 03/02/19 03/02/19 05:15 05:15 05:15 WBC RBC 2.73 L Hgb 7.4 L Hct 23.0 L MCH 27 L MCHC RDW 19.9 H Lymph % (Auto) Williamson % (Auto) 7.9 H Eos % (Auto) 7.6 H Lymph # 1.0 L Williamson # Eos # 0.5 H Seg Neutrophils % Seg Neuts % (Manual) Lymphocytes % (Manual) Eosinophils % (Manual) Seg Neutrophils # Lymphocytes # (Manual) Eosinophils # (Manual) PT INR D-Dimer POC ABG pH POC ABG pCO2 POC ABG pO2 ABG pO2 ABG HCO3 ABG Base Excess ABG Hemoglobin Oxyhemoglobin Sodium Potassium Chloride Carbon Dioxide BUN 43 H Creatinine 3.2 H Glucose POC Glucose Calcium Phosphorus 2.30 L Magnesium ALT Alkaline Phosphatase Total Creatine Kinase CK-MB (CK-2) Rel Index Troponin T Albumin LDL Cholesterol Direct PTH Intact 267.6 H Salicylates Acetaminophen Crossmatch 03/02/19 03/02/19 03/03/19 12:32 18:20 13:30 WBC RBC Hgb Hct MCH MCHC RDW Lymph % (Auto) Williamson % (Auto) Eos % (Auto) Lymph # Williamson # Eos # Seg Neutrophils % Seg Neuts % (Manual) Lymphocytes % (Manual) Eosinophils % (Manual) Seg Neutrophils # Lymphocytes # (Manual) Eosinophils # (Manual) PT INR D-Dimer POC ABG pH POC ABG pCO2 POC ABG pO2 ABG pO2 ABG HCO3 ABG Base Excess ABG Hemoglobin Oxyhemoglobin Sodium Potassium Chloride 97.3 L Carbon Dioxide BUN 26 H Creatinine 2.2 H Glucose 73 L POC Glucose 111 H 156 H Calcium Phosphorus Magnesium ALT Alkaline Phosphatase Total Creatine Kinase CK-MB (CK-2) Rel Index Troponin T Albumin LDL Cholesterol Direct PTH Intact Salicylates Acetaminophen Crossmatch 03/04/19 03/04/19 03/04/19 00:02 05:37 05:40 WBC RBC 2.63 L Hgb 7.2 L Hct 22.2 L MCH MCHC RDW 20.2 H Lymph % (Auto) 10.5 L Williamson % (Auto) Eos % (Auto) 4.6 H Lymph # 0.7 L Williamson # Eos # Seg Neutrophils % 76.9 H Seg Neuts % (Manual) Lymphocytes % (Manual) Eosinophils % (Manual) Seg Neutrophils # Lymphocytes # (Manual) Eosinophils # (Manual) PT INR D-Dimer POC ABG pH POC ABG pCO2 POC ABG pO2 ABG pO2 ABG HCO3 ABG Base Excess ABG Hemoglobin Oxyhemoglobin Sodium Potassium Chloride Carbon Dioxide BUN Creatinine Glucose POC Glucose 136 H 123 H Calcium Phosphorus Magnesium ALT Alkaline Phosphatase Total Creatine Kinase CK-MB (CK-2) Rel Index Troponin T Albumin LDL Cholesterol Direct PTH Intact Salicylates Acetaminophen Crossmatch 03/04/19 03/04/19 03/04/19 05:40 11:39 23:20 WBC RBC Hgb Hct MCH MCHC RDW Lymph % (Auto) Williamson % (Auto) Eos % (Auto) Lymph # Williamson # Eos # Seg Neutrophils % Seg Neuts % (Manual) Lymphocytes % (Manual) Eosinophils % (Manual) Seg Neutrophils # Lymphocytes # (Manual) Eosinophils # (Manual) PT INR D-Dimer POC ABG pH POC ABG pCO2 POC ABG pO2 ABG pO2 ABG HCO3 ABG Base Excess ABG Hemoglobin Oxyhemoglobin Sodium Potassium Chloride Carbon Dioxide BUN 34 H Creatinine 2.7 H Glucose 114 H POC Glucose 175 H 151 H Calcium Phosphorus Magnesium ALT Alkaline Phosphatase Total Creatine Kinase CK-MB (CK-2) Rel Index Troponin T Albumin LDL Cholesterol Direct PTH Intact Salicylates Acetaminophen Crossmatch 03/05/19 03/05/19 03/05/19 05:37 12:08 17:11 WBC RBC Hgb Hct MCH MCHC RDW Lymph % (Auto) Williamson % (Auto) Eos % (Auto) Lymph # Williamson # Eos # Seg Neutrophils % Seg Neuts % (Manual) Lymphocytes % (Manual) Eosinophils % (Manual) Seg Neutrophils # Lymphocytes # (Manual) Eosinophils # (Manual) PT INR D-Dimer POC ABG pH POC ABG pCO2 POC ABG pO2 ABG pO2 ABG HCO3 ABG Base Excess ABG Hemoglobin Oxyhemoglobin Sodium Potassium Chloride Carbon Dioxide BUN Creatinine Glucose POC Glucose 134 H 135 H 135 H Calcium Phosphorus Magnesium ALT Alkaline Phosphatase Total Creatine Kinase CK-MB (CK-2) Rel Index Troponin T Albumin LDL Cholesterol Direct PTH Intact Salicylates Acetaminophen Crossmatch 03/06/19 03/06/19 03/06/19 00:16 13:05 18:09 WBC RBC Hgb Hct MCH MCHC RDW Lymph % (Auto) Williamson % (Auto) Eos % (Auto) Lymph # Williamson # Eos # Seg Neutrophils % Seg Neuts % (Manual) Lymphocytes % (Manual) Eosinophils % (Manual) Seg Neutrophils # Lymphocytes # (Manual) Eosinophils # (Manual) PT INR D-Dimer POC ABG pH POC ABG pCO2 POC ABG pO2 ABG pO2 ABG HCO3 ABG Base Excess ABG Hemoglobin Oxyhemoglobin Sodium Potassium Chloride Carbon Dioxide BUN Creatinine Glucose POC Glucose 117 H 113 H 131 H Calcium Phosphorus Magnesium ALT Alkaline Phosphatase Total Creatine Kinase CK-MB (CK-2) Rel Index Troponin T Albumin LDL Cholesterol Direct PTH Intact Salicylates Acetaminophen Crossmatch 03/07/19 03/08/19 03/08/19 05:25 05:33 16:00 WBC RBC 2.44 L Hgb 6.6 L Hct 20.8 L MCH 27 L MCHC RDW 19.2 H Lymph % (Auto) Williamson % (Auto) Eos % (Auto) 8.6 H Lymph # 0.8 L Williamson # Eos # 0.5 H Seg Neutrophils % 70.7 H Seg Neuts % (Manual) Lymphocytes % (Manual) Eosinophils % (Manual) Seg Neutrophils # Lymphocytes # (Manual) Eosinophils # (Manual) PT INR D-Dimer POC ABG pH POC ABG pCO2 POC ABG pO2 ABG pO2 ABG HCO3 ABG Base Excess ABG Hemoglobin Oxyhemoglobin Sodium Potassium Chloride Carbon Dioxide BUN Creatinine Glucose POC Glucose 106 H 108 H Calcium Phosphorus Magnesium ALT Alkaline Phosphatase Total Creatine Kinase CK-MB (CK-2) Rel Index Troponin T Albumin LDL Cholesterol Direct PTH Intact Salicylates Acetaminophen Crossmatch 03/08/19 03/08/19 03/08/19 16:00 18:38 Unknown WBC RBC Hgb Hct MCH MCHC RDW Lymph % (Auto) Williamson % (Auto) Eos % (Auto) Lymph # Williamson # Eos # Seg Neutrophils % Seg Neuts % (Manual) Lymphocytes % (Manual) Eosinophils % (Manual) Seg Neutrophils # Lymphocytes # (Manual) Eosinophils # (Manual) PT INR D-Dimer POC ABG pH POC ABG pCO2 POC ABG pO2 ABG pO2 ABG HCO3 ABG Base Excess ABG Hemoglobin Oxyhemoglobin Sodium Potassium 5.4 H D Chloride Carbon Dioxide BUN 47 H Creatinine 2.6 H Glucose POC Glucose 123 H Calcium Phosphorus Magnesium ALT < 5 L Alkaline Phosphatase Total Creatine Kinase CK-MB (CK-2) Rel Index Troponin T Albumin 2.2 L LDL Cholesterol Direct PTH Intact Salicylates Acetaminophen Crossmatch See Detail 03/09/19 03/09/19 03/09/19 10:48 12:28 13:53 WBC RBC 2.85 L Hgb 7.7 L Hct 24.2 L MCH 27 L MCHC RDW 18.7 H Lymph % (Auto) Williamson % (Auto) Eos % (Auto) Lymph # Williamson # Eos # Seg Neutrophils % Seg Neuts % (Manual) Lymphocytes % (Manual) Eosinophils % (Manual) Seg Neutrophils # Lymphocytes # (Manual) Eosinophils # (Manual) PT INR D-Dimer POC ABG pH POC ABG pCO2 POC ABG pO2 ABG pO2 ABG HCO3 30.5 H ABG Base Excess 5.6 H ABG Hemoglobin 8.1 L Oxyhemoglobin 93.8 L Sodium Potassium Chloride Carbon Dioxide BUN Creatinine Glucose POC Glucose 114 H Calcium Phosphorus Magnesium ALT Alkaline Phosphatase Total Creatine Kinase CK-MB (CK-2) Rel Index Troponin T Albumin LDL Cholesterol Direct PTH Intact Salicylates Acetaminophen Crossmatch 03/09/19 03/09/19 03/10/19 17:58 23:53 12:01 WBC RBC Hgb Hct MCH MCHC RDW Lymph % (Auto) [place] % (Auto) Eos % (Auto) Lymph # Williamson # Eos # Seg Neutrophils % Seg Neuts % (Manual) Lymphocytes % (Manual) Eosinophils % (Manual) Seg Neutrophils # Lymphocytes # (Manual) Eosinophils # (Manual) PT INR D-Dimer POC ABG pH POC ABG pCO2 POC ABG pO2 ABG pO2 ABG HCO3 ABG Base Excess ABG Hemoglobin Oxyhemoglobin Sodium Potassium Chloride Carbon Dioxide BUN Creatinine Glucose POC Glucose 108 H 128 H 144 H Calcium Phosphorus Magnesium ALT Alkaline Phosphatase Total Creatine Kinase CK-MB (CK-2) Rel Index Troponin T Albumin LDL Cholesterol Direct PTH Intact Salicylates Acetaminophen Crossmatch 03/10/19 03/11/19 03/11/19 16:50 00:24 05:02 WBC RBC Hgb Hct MCH MCHC RDW Lymph % (Auto) [place] % (Auto) Eos % (Auto) Lymph # Williamson # Eos # Seg Neutrophils % Seg Neuts % (Manual) Lymphocytes % (Manual) Eosinophils % (Manual) Seg Neutrophils # Lymphocytes # (Manual) Eosinophils # (Manual) PT INR D-Dimer POC ABG pH POC ABG pCO2 POC ABG pO2 ABG pO2 ABG HCO3 ABG Base Excess ABG Hemoglobin Oxyhemoglobin Sodium Potassium Chloride Carbon Dioxide BUN Creatinine Glucose POC Glucose 147 H 123 H 120 H Calcium Phosphorus Magnesium ALT Alkaline Phosphatase Total Creatine Kinase CK-MB (CK-2) Rel Index Troponin T Albumin LDL Cholesterol Direct PTH Intact Salicylates Acetaminophen Crossmatch 03/11/19 03/11/19 03/11/19 11:56 12:20 18:37 WBC RBC Hgb Hct MCH MCHC RDW Lymph % (Auto) [place] % (Auto) Eos % (Auto) Lymph # Williamson # Eos # Seg Neutrophils % Seg Neuts % (Manual) Lymphocytes % (Manual) Eosinophils % (Manual) Seg Neutrophils # Lymphocytes # (Manual) Eosinophils # (Manual) PT INR D-Dimer POC ABG pH POC ABG pCO2 POC ABG pO2 ABG pO2 ABG HCO3 ABG Base Excess ABG Hemoglobin Oxyhemoglobin Sodium Potassium 5.2 H Chloride Carbon Dioxide BUN Creatinine Glucose POC Glucose 123 H 125 H Calcium Phosphorus Magnesium ALT Alkaline Phosphatase Total Creatine Kinase CK-MB (CK-2) Rel Index Troponin T Albumin LDL Cholesterol Direct PTH Intact Salicylates Acetaminophen Crossmatch 03/11/19 03/12/19 03/12/19 22:52 12:04 18:25 WBC RBC Hgb Hct MCH MCHC RDW Lymph % (Auto) Williamson % (Auto) Eos % (Auto) Lymph # Williamson # Eos # Seg Neutrophils % Seg Neuts % (Manual) Lymphocytes % (Manual) Eosinophils % (Manual) Seg Neutrophils # Lymphocytes # (Manual) Eosinophils # (Manual) PT INR D-Dimer POC ABG pH POC ABG pCO2 POC ABG pO2 ABG pO2 ABG HCO3 ABG Base Excess ABG Hemoglobin Oxyhemoglobin Sodium Potassium Chloride Carbon Dioxide BUN Creatinine Glucose POC Glucose 110 H 106 H 118 H Calcium Phosphorus Magnesium ALT Alkaline Phosphatase Total Creatine Kinase CK-MB (CK-2) Rel Index Troponin T Albumin LDL Cholesterol Direct PTH Intact Salicylates Acetaminophen Crossmatch 03/12/19 03/13/19 03/13/19 23:36 04:38 04:38 WBC RBC 2.95 L Hgb 7.9 L Hct 24.9 L MCH 27 L MCHC RDW 19.9 H Lymph % (Auto) 11.1 L Williamson % (Auto) 8.1 H Eos % (Auto) 4.4 H Lymph # 0.9 L Williamson # Eos # Seg Neutrophils % 75.4 H Seg Neuts % (Manual) Lymphocytes % (Manual) Eosinophils % (Manual) Seg Neutrophils # Lymphocytes # (Manual) Eosinophils # (Manual) PT INR D-Dimer POC ABG pH POC ABG pCO2 POC ABG pO2 ABG pO2 ABG HCO3 ABG Base Excess ABG Hemoglobin Oxyhemoglobin Sodium 136 L Potassium 5.1 H Chloride 93.8 L Carbon Dioxide BUN 48 H Creatinine 2.7 H Glucose 102 H POC Glucose 115 H Calcium Phosphorus Magnesium ALT < 5 L Alkaline Phosphatase 143 H Total Creatine Kinase CK-MB (CK-2) Rel Index Troponin T Albumin 2.5 L LDL Cholesterol Direct PTH Intact Salicylates Acetaminophen Crossmatch 03/13/19 03/13/19 03/13/19 05:33 13:37 18:03 WBC RBC Hgb Hct MCH MCHC RDW Lymph % (Auto) Williamson % (Auto) Eos % (Auto) Lymph # Williamson # Eos # Seg Neutrophils % Seg Neuts % (Manual) Lymphocytes % (Manual) Eosinophils % (Manual) Seg Neutrophils # Lymphocytes # (Manual) Eosinophils # (Manual) PT INR D-Dimer POC ABG pH POC ABG pCO2 POC ABG pO2 ABG pO2 ABG HCO3 ABG Base Excess ABG Hemoglobin Oxyhemoglobin Sodium Potassium Chloride Carbon Dioxide BUN Creatinine Glucose POC Glucose 140 H 150 H 158 H Calcium Phosphorus Magnesium ALT Alkaline Phosphatase Total Creatine Kinase CK-MB (CK-2) Rel Index Troponin T Albumin LDL Cholesterol Direct PTH Intact Salicylates Acetaminophen Crossmatch 03/13/19 03/14/19 03/14/19 23:32 05:24 12:20 WBC RBC Hgb Hct MCH MCHC RDW Lymph % (Auto) Williamson % (Auto) Eos % (Auto) Lymph # Williamson # Eos # Seg Neutrophils % Seg Neuts % (Manual) Lymphocytes % (Manual) Eosinophils % (Manual) Seg Neutrophils # Lymphocytes # (Manual) Eosinophils # (Manual) PT INR D-Dimer POC ABG pH POC ABG pCO2 POC ABG pO2 ABG pO2 ABG HCO3 ABG Base Excess ABG Hemoglobin Oxyhemoglobin Sodium Potassium Chloride Carbon Dioxide BUN Creatinine Glucose POC Glucose 162 H 146 H 127 H Calcium Phosphorus Magnesium ALT Alkaline Phosphatase Total Creatine Kinase CK-MB (CK-2) Rel Index Troponin T Albumin LDL Cholesterol Direct PTH Intact Salicylates Acetaminophen Crossmatch 03/14/19 03/14/19 03/15/19 18:05 23:57 04:38 WBC 12.8 H RBC 3.11 L Hgb 8.1 L Hct 26.5 L MCH 26 L MCHC 31 L RDW 19.7 H Lymph % (Auto) 4.4 L Williamson % (Auto) 7.4 H Eos % (Auto) Lymph # 0.6 L Williamson # 0.9 H Eos # Seg Neutrophils % 87.3 H Seg Neuts % (Manual) Lymphocytes % (Manual) Eosinophils % (Manual) Seg Neutrophils # 11.2 H Lymphocytes # (Manual) Eosinophils # (Manual) PT INR D-Dimer POC ABG pH POC ABG pCO2 POC ABG pO2 ABG pO2 ABG HCO3 ABG Base Excess ABG Hemoglobin Oxyhemoglobin Sodium Potassium Chloride Carbon Dioxide BUN Creatinine Glucose POC Glucose 142 H 155 H Calcium Phosphorus Magnesium ALT Alkaline Phosphatase Total Creatine Kinase CK-MB (CK-2) Rel Index Troponin T Albumin LDL Cholesterol Direct PTH Intact Salicylates Acetaminophen Crossmatch 03/15/19 03/15/19 03/15/19 04:38 05:31 11:32 WBC RBC Hgb Hct MCH MCHC RDW Lymph % (Auto) Williamson % (Auto) Eos % (Auto) Lymph # Williamson # Eos # Seg Neutrophils % Seg Neuts % (Manual) Lymphocytes % (Manual) Eosinophils % (Manual) Seg Neutrophils # Lymphocytes # (Manual) Eosinophils # (Manual) PT INR D-Dimer POC ABG pH POC ABG pCO2 POC ABG pO2 ABG pO2 ABG HCO3 ABG Base Excess ABG Hemoglobin Oxyhemoglobin Sodium 135 L Potassium Chloride 91.9 L Carbon Dioxide BUN 54 H Creatinine 2.8 H Glucose 128 H POC Glucose 160 H 109 H Calcium 11.1 H Phosphorus Magnesium ALT Alkaline Phosphatase 161 H Total Creatine Kinase CK-MB (CK-2) Rel Index Troponin T Albumin 2.3 L LDL Cholesterol Direct PTH Intact Salicylates Acetaminophen Crossmatch 03/15/19 03/15/19 03/16/19 18:15 23:41 05:40 WBC RBC Hgb Hct MCH MCHC RDW Lymph % (Auto) Williamson % (Auto) Eos % (Auto) Lymph # Williamson # Eos # Seg Neutrophils % Seg Neuts % (Manual) Lymphocytes % (Manual) Eosinophils % (Manual) Seg Neutrophils # Lymphocytes # (Manual) Eosinophils # (Manual) PT INR D-Dimer POC ABG pH POC ABG pCO2 POC ABG pO2 ABG pO2 ABG HCO3 ABG Base Excess ABG Hemoglobin Oxyhemoglobin Sodium Potassium Chloride Carbon Dioxide BUN Creatinine Glucose POC Glucose 151 H 110 H 163 H Calcium Phosphorus Magnesium ALT Alkaline Phosphatase Total Creatine Kinase CK-MB (CK-2) Rel Index Troponin T Albumin LDL Cholesterol Direct PTH Intact Salicylates Acetaminophen Crossmatch 03/16/19 03/16/19 03/16/19 11:55 17:04 23:58 WBC RBC Hgb Hct MCH MCHC RDW Lymph % (Auto) Williamson % (Auto) Eos % (Auto) Lymph # Williamson # Eos # Seg Neutrophils % Seg Neuts % (Manual) Lymphocytes % (Manual) Eosinophils % (Manual) Seg Neutrophils # Lymphocytes # (Manual) Eosinophils # (Manual) PT INR D-Dimer POC ABG pH POC ABG pCO2 POC ABG pO2 ABG pO2 ABG HCO3 ABG Base Excess ABG Hemoglobin Oxyhemoglobin Sodium Potassium Chloride Carbon Dioxide BUN Creatinine Glucose POC Glucose 114 H 147 H 192 H Calcium Phosphorus Magnesium ALT Alkaline Phosphatase Total Creatine Kinase CK-MB (CK-2) Rel Index Troponin T Albumin LDL Cholesterol Direct PTH Intact Salicylates Acetaminophen Crossmatch 03/17/19 03/17/19 03/17/19 05:53 11:17 17:01 WBC RBC Hgb Hct MCH MCHC RDW Lymph % (Auto) Williamson % (Auto) Eos % (Auto) Lymph # Williamson # Eos # Seg Neutrophils % Seg Neuts % (Manual) Lymphocytes % (Manual) Eosinophils % (Manual) Seg Neutrophils # Lymphocytes # (Manual) Eosinophils # (Manual) PT INR D-Dimer POC ABG pH POC ABG pCO2 POC ABG pO2 ABG pO2 ABG HCO3 ABG Base Excess ABG Hemoglobin Oxyhemoglobin Sodium Potassium Chloride Carbon Dioxide BUN Creatinine Glucose POC Glucose 151 H 161 H 152 H Calcium Phosphorus Magnesium ALT Alkaline Phosphatase Total Creatine Kinase CK-MB (CK-2) Rel Index Troponin T Albumin LDL Cholesterol Direct PTH Intact Salicylates Acetaminophen Crossmatch 03/17/19 03/18/19 03/18/19 21:47 04:15 04:44 WBC RBC Hgb Hct MCH MCHC RDW Lymph % (Auto) Williamson % (Auto) Eos % (Auto) Lymph # Williamson # Eos # Seg Neutrophils % Seg Neuts % (Manual) Lymphocytes % (Manual) Eosinophils % (Manual) Seg Neutrophils # Lymphocytes # (Manual) Eosinophils # (Manual) PT INR D-Dimer POC ABG pH POC ABG pCO2 POC ABG pO2 ABG pO2 102.8 H ABG HCO3 28.3 H ABG Base Excess ABG Hemoglobin 10.4 L Oxyhemoglobin 94.5 L Sodium Potassium Chloride Carbon Dioxide BUN Creatinine Glucose POC Glucose 170 H 150 H Calcium Phosphorus Magnesium ALT Alkaline Phosphatase Total Creatine Kinase CK-MB (CK-2) Rel Index Troponin T Albumin LDL Cholesterol Direct PTH Intact Salicylates Acetaminophen Crossmatch 03/18/19 03/18/19 03/18/19 06:38 12:12 17:47 WBC RBC Hgb Hct MCH MCHC RDW Lymph % (Auto) Williamson % (Auto) Eos % (Auto) Lymph # Williamson # Eos # Seg Neutrophils % Seg Neuts % (Manual) Lymphocytes % (Manual) Eosinophils % (Manual) Seg Neutrophils # Lymphocytes # (Manual) Eosinophils # (Manual) PT INR D-Dimer POC ABG pH 7.510 H POC ABG pCO2 POC ABG pO2 164 H ABG pO2 ABG HCO3 ABG Base Excess ABG Hemoglobin Oxyhemoglobin Sodium Potassium Chloride Carbon Dioxide BUN Creatinine Glucose POC Glucose 145 H 149 H Calcium Phosphorus Magnesium ALT Alkaline Phosphatase Total Creatine Kinase CK-MB (CK-2) Rel Index Troponin T Albumin LDL Cholesterol Direct PTH Intact Salicylates Acetaminophen Crossmatch 03/18/19 03/19/19 03/19/19 23:25 01:11 04:23 WBC 15.6 H RBC 2.51 L Hgb 6.5 L Hct 21.6 L MCH 26 L MCHC 30 L RDW 19.8 H Lymph % (Auto) 6.0 L Williamson % (Auto) Eos % (Auto) Lymph # 0.9 L Williamson # 1.0 H Eos # Seg Neutrophils % 85.5 H Seg Neuts % (Manual) Lymphocytes % (Manual) Eosinophils % (Manual) Seg Neutrophils # 13.4 H Lymphocytes # (Manual) Eosinophils # (Manual) PT INR D-Dimer POC ABG pH POC ABG pCO2 POC ABG pO2 ABG pO2 78.3 L ABG HCO3 30.7 H ABG Base Excess 5.8 H ABG Hemoglobin 5.8 L Oxyhemoglobin 94.6 L Sodium Potassium Chloride Carbon Dioxide BUN Creatinine Glucose POC Glucose 190 H Calcium Phosphorus Magnesium ALT Alkaline Phosphatase Total Creatine Kinase CK-MB (CK-2) Rel Index Troponin T Albumin LDL Cholesterol Direct PTH Intact Salicylates Acetaminophen Crossmatch 03/19/19 03/19/19 03/19/19 05:22 05:35 08:54 WBC RBC Hgb Hct MCH MCHC RDW Lymph % (Auto) Williamson % (Auto) Eos % (Auto) Lymph # Williamson # Eos # Seg Neutrophils % Seg Neuts % (Manual) Lymphocytes % (Manual) Eosinophils % (Manual) Seg Neutrophils # Lymphocytes # (Manual) Eosinophils # (Manual) PT INR D-Dimer POC ABG pH POC ABG pCO2 POC ABG pO2 ABG pO2 ABG HCO3 ABG Base Excess ABG Hemoglobin Oxyhemoglobin Sodium Potassium Chloride Carbon Dioxide BUN Creatinine Glucose POC Glucose 167 H Calcium Phosphorus Magnesium ALT Alkaline Phosphatase Total Creatine Kinase CK-MB (CK-2) Rel Index Troponin T Albumin LDL Cholesterol Direct PTH Intact Salicylates Acetaminophen Crossmatch See Detail See Detail 03/19/19 03/19/19 03/19/19 12:36 17:02 23:25 WBC RBC Hgb Hct MCH MCHC RDW Lymph % (Auto) Williamson % (Auto) Eos % (Auto) Lymph # Williamson # Eos # Seg Neutrophils % Seg Neuts % (Manual) Lymphocytes % (Manual) Eosinophils % (Manual) Seg Neutrophils # Lymphocytes # (Manual) Eosinophils # (Manual) PT INR D-Dimer POC ABG pH POC ABG pCO2 POC ABG pO2 ABG pO2 ABG HCO3 ABG Base Excess ABG Hemoglobin Oxyhemoglobin Sodium Potassium Chloride Carbon Dioxide BUN Creatinine Glucose POC Glucose 167 H 135 H 136 H Calcium Phosphorus Magnesium ALT Alkaline Phosphatase Total Creatine Kinase CK-MB (CK-2) Rel Index Troponin T Albumin LDL Cholesterol Direct PTH Intact Salicylates Acetaminophen Crossmatch 03/20/19 03/20/19 03/20/19 05:38 08:40 08:40 WBC RBC 2.61 L Hgb 7.1 L Hct 22.0 L MCH 27 L MCHC RDW 19.6 H Lymph % (Auto) 8.2 L Williamson % (Auto) 8.3 H Eos % (Auto) 5.7 H Lymph # 0.8 L Williamson # Eos # 0.5 H Seg Neutrophils % 77.3 H Seg Neuts % (Manual) Lymphocytes % (Manual) Eosinophils % (Manual) Seg Neutrophils # Lymphocytes # (Manual) Eosinophils # (Manual) PT INR D-Dimer POC ABG pH POC ABG pCO2 POC ABG pO2 ABG pO2 ABG HCO3 ABG Base Excess ABG Hemoglobin Oxyhemoglobin Sodium Potassium Chloride 95.9 L Carbon Dioxide BUN 69 H Creatinine 2.8 H Glucose 115 H POC Glucose 134 H Calcium 10.5 H Phosphorus Magnesium ALT Alkaline Phosphatase Total Creatine Kinase CK-MB (CK-2) Rel Index Troponin T Albumin LDL Cholesterol Direct PTH Intact Salicylates Acetaminophen Crossmatch 03/20/19 03/20/19 03/20/19 12:13 18:04 23:49 WBC RBC Hgb Hct MCH MCHC RDW Lymph % (Auto) Williamson % (Auto) Eos % (Auto) Lymph # Williamson # Eos # Seg Neutrophils % Seg Neuts % (Manual) Lymphocytes % (Manual) Eosinophils % (Manual) Seg Neutrophils # Lymphocytes # (Manual) Eosinophils # (Manual) PT INR D-Dimer POC ABG pH POC ABG pCO2 POC ABG pO2 ABG pO2 ABG HCO3 ABG Base Excess ABG Hemoglobin Oxyhemoglobin Sodium Potassium Chloride Carbon Dioxide BUN Creatinine Glucose POC Glucose 144 H 165 H 172 H Calcium Phosphorus Magnesium ALT Alkaline Phosphatase Total Creatine Kinase CK-MB (CK-2) Rel Index Troponin T Albumin LDL Cholesterol Direct PTH Intact Salicylates Acetaminophen Crossmatch 03/21/19 03/21/19 03/21/19 05:00 06:29 06:30 WBC RBC 2.72 L Hgb 7.4 L Hct 22.9 L MCH 27 L MCHC RDW 19.4 H Lymph % (Auto) Williamson % (Auto) Eos % (Auto) Lymph # Williamson # Eos # Seg Neutrophils % Seg Neuts % (Manual) 81.0 H Lymphocytes % (Manual) 8.0 L Eosinophils % (Manual) 8.0 H Seg Neutrophils # Lymphocytes # (Manual) 0.7 L Eosinophils # (Manual) 0.7 H PT INR D-Dimer POC ABG pH POC ABG pCO2 POC ABG pO2 ABG pO2 ABG HCO3 ABG Base Excess ABG Hemoglobin Oxyhemoglobin Sodium Potassium Chloride Carbon Dioxide 33 H BUN 43 H Creatinine 1.7 H Glucose 145 H POC Glucose 156 H Calcium Phosphorus Magnesium ALT Alkaline Phosphatase 212 H Total Creatine Kinase CK-MB (CK-2) Rel Index Troponin T Albumin 2.2 L LDL Cholesterol Direct PTH Intact Salicylates Acetaminophen Crossmatch 03/21/19 03/21/19 03/22/19 12:02 18:07 00:21 WBC RBC Hgb Hct MCH MCHC RDW Lymph % (Auto) Williamson % (Auto) Eos % (Auto) Lymph # Williamson # Eos # Seg Neutrophils % Seg Neuts % (Manual) Lymphocytes % (Manual) Eosinophils % (Manual) Seg Neutrophils # Lymphocytes # (Manual) Eosinophils # (Manual) PT INR D-Dimer POC ABG pH POC ABG pCO2 POC ABG pO2 ABG pO2 ABG HCO3 ABG Base Excess ABG Hemoglobin Oxyhemoglobin Sodium Potassium Chloride Carbon Dioxide BUN Creatinine Glucose POC Glucose 163 H 144 H 153 H Calcium Phosphorus Magnesium ALT Alkaline Phosphatase Total Creatine Kinase CK-MB (CK-2) Rel Index Troponin T Albumin LDL Cholesterol Direct PTH Intact Salicylates Acetaminophen Crossmatch 03/22/19 03/22/19 03/22/19 05:23 05:23 05:31 WBC RBC 2.58 L Hgb 7.1 L Hct 21.8 L MCH 27 L MCHC RDW 19.2 H Lymph % (Auto) Williamson % (Auto) Eos % (Auto) Lymph # Williamson # Eos # Seg Neutrophils % Seg Neuts % (Manual) Lymphocytes % (Manual) Eosinophils % (Manual) Seg Neutrophils # Lymphocytes # (Manual) Eosinophils # (Manual) PT INR D-Dimer POC ABG pH POC ABG pCO2 POC ABG pO2 ABG pO2 ABG HCO3 ABG Base Excess ABG Hemoglobin Oxyhemoglobin Sodium 147 H Potassium Chloride Carbon Dioxide BUN 68 H Creatinine 2.5 H Glucose POC Glucose 116 H Calcium 10.3 H Phosphorus Magnesium ALT Alkaline Phosphatase Total Creatine Kinase CK-MB (CK-2) Rel Index Troponin T Albumin LDL Cholesterol Direct PTH Intact Salicylates Acetaminophen Crossmatch 03/22/19 03/22/19 03/22/19 08:48 12:37 17:35 WBC RBC Hgb Hct MCH MCHC RDW Lymph % (Auto) Williamson % (Auto) Eos % (Auto) Lymph # Williamson # Eos # Seg Neutrophils % Seg Neuts % (Manual) Lymphocytes % (Manual) Eosinophils % (Manual) Seg Neutrophils # Lymphocytes # (Manual) Eosinophils # (Manual) PT INR D-Dimer POC ABG pH POC ABG pCO2 POC ABG pO2 ABG pO2 ABG HCO3 ABG Base Excess ABG Hemoglobin Oxyhemoglobin Sodium Potassium Chloride Carbon Dioxide BUN Creatinine Glucose POC Glucose 143 H 155 H Calcium Phosphorus Magnesium ALT Alkaline Phosphatase Total Creatine Kinase CK-MB (CK-2) Rel Index Troponin T Albumin LDL Cholesterol Direct PTH Intact Salicylates Acetaminophen Crossmatch See Detail 03/23/19 03/23/19 03/23/19 00:07 04:00 04:00 WBC 11.2 H RBC 2.32 L Hgb 6.4 L Hct 19.7 L* MCH MCHC RDW 19.4 H Lymph % (Auto) Williamson % (Auto) Eos % (Auto) Lymph # Williamson # Eos # Seg Neutrophils % Seg Neuts % (Manual) Lymphocytes % (Manual) Eosinophils % (Manual) Seg Neutrophils # Lymphocytes # (Manual) Eosinophils # (Manual) PT INR D-Dimer POC ABG pH POC ABG pCO2 POC ABG pO2 ABG pO2 ABG HCO3 ABG Base Excess ABG Hemoglobin Oxyhemoglobin Sodium 147 H Potassium 5.2 H Chloride Carbon Dioxide BUN 86 H Creatinine 3.2 H Glucose 128 H POC Glucose 135 H Calcium 10.3 H Phosphorus Magnesium ALT Alkaline Phosphatase Total Creatine Kinase CK-MB (CK-2) Rel Index Troponin T Albumin LDL Cholesterol Direct PTH Intact Salicylates Acetaminophen Crossmatch 03/23/19 03/23/19 03/23/19 05:21 11:36 11:36 WBC RBC Hgb 7.9 L Hct 25.0 L MCH MCHC RDW Lymph % (Auto) Williamson % (Auto) Eos % (Auto) Lymph # Williamson # Eos # Seg Neutrophils % Seg Neuts % (Manual) Lymphocytes % (Manual) Eosinophils % (Manual) Seg Neutrophils # Lymphocytes # (Manual) Eosinophils # (Manual) PT INR D-Dimer POC ABG pH POC ABG pCO2 POC ABG pO2 ABG pO2 ABG HCO3 ABG Base Excess ABG Hemoglobin Oxyhemoglobin Sodium Potassium Chloride Carbon Dioxide BUN Creatinine Glucose POC Glucose 132 H 147 H Calcium Phosphorus Magnesium ALT Alkaline Phosphatase Total Creatine Kinase CK-MB (CK-2) Rel Index Troponin T Albumin LDL Cholesterol Direct PTH Intact Salicylates Acetaminophen Crossmatch 03/23/19 03/24/19 03/24/19 17:31 01:22 04:20 WBC 12.2 H RBC 3.05 L Hgb 8.3 L Hct 25.9 L MCH 27 L MCHC RDW 18.7 H Lymph % (Auto) Williamson % (Auto) Eos % (Auto) Lymph # Williamson # Eos # Seg Neutrophils % Seg Neuts % (Manual) Lymphocytes % (Manual) Eosinophils % (Manual) Seg Neutrophils # Lymphocytes # (Manual) Eosinophils # (Manual) PT INR D-Dimer POC ABG pH POC ABG pCO2 POC ABG pO2 ABG pO2 ABG HCO3 ABG Base Excess ABG Hemoglobin Oxyhemoglobin Sodium Potassium Chloride Carbon Dioxide BUN Creatinine Glucose POC Glucose 182 H 113 H Calcium Phosphorus Magnesium ALT Alkaline Phosphatase Total Creatine Kinase CK-MB (CK-2) Rel Index Troponin T Albumin LDL Cholesterol Direct PTH Intact Salicylates Acetaminophen Crossmatch 03/24/19 03/24/19 03/24/19 04:20 11:59 18:14 WBC RBC Hgb Hct MCH MCHC RDW Lymph % (Auto) Williamson % (Auto) Eos % (Auto) Lymph # Williamson # Eos # Seg Neutrophils % Seg Neuts % (Manual) Lymphocytes % (Manual) Eosinophils % (Manual) Seg Neutrophils # Lymphocytes # (Manual) Eosinophils # (Manual) PT INR D-Dimer POC ABG pH POC ABG pCO2 POC ABG pO2 ABG pO2 ABG HCO3 ABG Base Excess ABG Hemoglobin Oxyhemoglobin Sodium Potassium Chloride 94.8 L Carbon Dioxide 32 H BUN 53 H Creatinine 2.3 H Glucose POC Glucose 163 H 134 H Calcium Phosphorus Magnesium ALT Alkaline Phosphatase Total Creatine Kinase CK-MB (CK-2) Rel Index Troponin T Albumin LDL Cholesterol Direct PTH Intact Salicylates Acetaminophen Crossmatch 03/24/19 03/25/19 03/25/19 23:15 05:52 12:02 WBC RBC Hgb Hct MCH MCHC RDW Lymph % (Auto) Williamson % (Auto) Eos % (Auto) Lymph # Williamson # Eos # Seg Neutrophils % Seg Neuts % (Manual) Lymphocytes % (Manual) Eosinophils % (Manual) Seg Neutrophils # Lymphocytes # (Manual) Eosinophils # (Manual) PT INR D-Dimer POC ABG pH POC ABG pCO2 POC ABG pO2 ABG pO2 ABG HCO3 ABG Base Excess ABG Hemoglobin Oxyhemoglobin Sodium Potassium Chloride Carbon Dioxide BUN Creatinine Glucose POC Glucose 129 H 123 H 125 H Calcium Phosphorus Magnesium ALT Alkaline Phosphatase Total Creatine Kinase CK-MB (CK-2) Rel Index Troponin T Albumin LDL Cholesterol Direct PTH Intact Salicylates Acetaminophen Crossmatch 03/25/19 03/26/19 03/26/19 17:27 00:30 05:35 WBC RBC 3.01 L Hgb 8.1 L Hct 25.7 L MCH 27 L MCHC RDW 19.2 H Lymph % (Auto) 11.4 L Williamson % (Auto) Eos % (Auto) 8.0 H Lymph # 1.0 L Williamson # Eos # 0.7 H Seg Neutrophils % 73.9 H Seg Neuts % (Manual) Lymphocytes % (Manual) Eosinophils % (Manual) Seg Neutrophils # Lymphocytes # (Manual) Eosinophils # (Manual) PT INR D-Dimer POC ABG pH POC ABG pCO2 POC ABG pO2 ABG pO2 ABG HCO3 ABG Base Excess ABG Hemoglobin Oxyhemoglobin Sodium Potassium Chloride Carbon Dioxide BUN Creatinine Glucose POC Glucose 130 H 129 H Calcium Phosphorus Magnesium ALT Alkaline Phosphatase Total Creatine Kinase CK-MB (CK-2) Rel Index Troponin T Albumin LDL Cholesterol Direct PTH Intact Salicylates Acetaminophen Crossmatch 03/26/19 03/26/19 03/26/19 05:35 05:45 12:16 WBC RBC Hgb Hct MCH MCHC RDW Lymph % (Auto) Williamson % (Auto) Eos % (Auto) Lymph # Williamson # Eos # Seg Neutrophils % Seg Neuts % (Manual) Lymphocytes % (Manual) Eosinophils % (Manual) Seg Neutrophils # Lymphocytes # (Manual) Eosinophils # (Manual) PT INR D-Dimer POC ABG pH POC ABG pCO2 POC ABG pO2 ABG pO2 ABG HCO3 ABG Base Excess ABG Hemoglobin Oxyhemoglobin Sodium Potassium Chloride 94.9 L Carbon Dioxide 31 H BUN 44 H Creatinine 2.0 H Glucose POC Glucose 118 H 107 H Calcium Phosphorus Magnesium ALT Alkaline Phosphatase Total Creatine Kinase CK-MB (CK-2) Rel Index Troponin T Albumin LDL Cholesterol Direct PTH Intact Salicylates Acetaminophen Crossmatch 03/26/19 03/27/19 03/27/19 17:56 00:36 05:37 WBC RBC Hgb Hct MCH MCHC RDW Lymph % (Auto) Williamson % (Auto) Eos % (Auto) Lymph # Williamson # Eos # Seg Neutrophils % Seg Neuts % (Manual) Lymphocytes % (Manual) Eosinophils % (Manual) Seg Neutrophils # Lymphocytes # (Manual) Eosinophils # (Manual) PT INR D-Dimer POC ABG pH POC ABG pCO2 POC ABG pO2 ABG pO2 ABG HCO3 ABG Base Excess ABG Hemoglobin Oxyhemoglobin Sodium Potassium Chloride Carbon Dioxide BUN Creatinine Glucose POC Glucose 107 H 110 H 122 H Calcium Phosphorus Magnesium ALT Alkaline Phosphatase Total Creatine Kinase CK-MB (CK-2) Rel Index Troponin T Albumin LDL Cholesterol Direct PTH Intact Salicylates Acetaminophen Crossmatch 03/27/19 03/27/19 03/28/19 11:22 18:00 05:17 WBC RBC Hgb Hct MCH MCHC RDW Lymph % (Auto) Williamson % (Auto) Eos % (Auto) Lymph # Williamson # Eos # Seg Neutrophils % Seg Neuts % (Manual) Lymphocytes % (Manual) Eosinophils % (Manual) Seg Neutrophils # Lymphocytes # (Manual) Eosinophils # (Manual) PT INR D-Dimer POC ABG pH POC ABG pCO2 POC ABG pO2 ABG pO2 ABG HCO3 ABG Base Excess ABG Hemoglobin Oxyhemoglobin Sodium Potassium Chloride Carbon Dioxide BUN Creatinine Glucose POC Glucose 120 H 111 H 107 H Calcium Phosphorus Magnesium ALT Alkaline Phosphatase Total Creatine Kinase CK-MB (CK-2) Rel Index Troponin T Albumin LDL Cholesterol Direct PTH Intact Salicylates Acetaminophen Crossmatch 03/28/19 03/28/19 03/29/19 12:27 18:08 05:47 WBC RBC Hgb Hct MCH MCHC RDW Lymph % (Auto) Williamson % (Auto) Eos % (Auto) Lymph # Williamson # Eos # Seg Neutrophils % Seg Neuts % (Manual) Lymphocytes % (Manual) Eosinophils % (Manual) Seg Neutrophils # Lymphocytes # (Manual) Eosinophils # (Manual) PT INR D-Dimer POC ABG pH POC ABG pCO2 POC ABG pO2 ABG pO2 ABG HCO3 ABG Base Excess ABG Hemoglobin Oxyhemoglobin Sodium Potassium Chloride Carbon Dioxide BUN Creatinine Glucose POC Glucose 114 H 121 H 112 H Calcium Phosphorus Magnesium ALT Alkaline Phosphatase Total Creatine Kinase CK-MB (CK-2) Rel Index Troponin T Albumin LDL Cholesterol Direct PTH Intact Salicylates Acetaminophen Crossmatch 03/29/19 03/29/19 03/30/19 12:14 18:08 00:31 WBC RBC Hgb Hct MCH MCHC RDW Lymph % (Auto) Williamson % (Auto) Eos % (Auto) Lymph # Williamson # Eos # Seg Neutrophils % Seg Neuts % (Manual) Lymphocytes % (Manual) Eosinophils % (Manual) Seg Neutrophils # Lymphocytes # (Manual) Eosinophils # (Manual) PT INR D-Dimer POC ABG pH POC ABG pCO2 POC ABG pO2 ABG pO2 ABG HCO3 ABG Base Excess ABG Hemoglobin Oxyhemoglobin Sodium Potassium Chloride Carbon Dioxide BUN Creatinine Glucose POC Glucose 117 H 140 H 114 H Calcium Phosphorus Magnesium ALT Alkaline Phosphatase Total Creatine Kinase CK-MB (CK-2) Rel Index Troponin T Albumin LDL Cholesterol Direct PTH Intact Salicylates Acetaminophen Crossmatch 03/30/19 03/30/19 03/30/19 10:13 10:13 23:53 WBC RBC 2.81 L Hgb 7.7 L Hct 24.3 L MCH 27 L MCHC RDW 19.0 H Lymph % (Auto) 12.2 L Williamson % (Auto) Eos % (Auto) 7.9 H Lymph # 1.0 L Williamson # Eos # 0.6 H Seg Neutrophils % 72.3 H Seg Neuts % (Manual) Lymphocytes % (Manual) Eosinophils % (Manual) Seg Neutrophils # Lymphocytes # (Manual) Eosinophils # (Manual) PT INR D-Dimer POC ABG pH POC ABG pCO2 POC ABG pO2 ABG pO2 ABG HCO3 ABG Base Excess ABG Hemoglobin Oxyhemoglobin Sodium Potassium 5.1 H Chloride 96.5 L Carbon Dioxide BUN 73 H Creatinine 3.9 H D Glucose POC Glucose 114 H Calcium 10.3 H Phosphorus 6.30 H Magnesium 2.70 H ALT Alkaline Phosphatase 185 H Total Creatine Kinase CK-MB (CK-2) Rel Index Troponin T Albumin 2.6 L LDL Cholesterol Direct PTH Intact Salicylates Acetaminophen Crossmatch 03/31/19 03/31/19 03/31/19 05:45 10:26 10:26 WBC RBC 3.01 L Hgb 8.2 L Hct 26.4 L MCH 27 L MCHC 31 L RDW 20.3 H Lymph % (Auto) 13.3 L Williamson % (Auto) Eos % (Auto) 7.2 H Lymph # 1.1 L Williamson # Eos # 0.6 H Seg Neutrophils % 72.1 H Seg Neuts % (Manual) Lymphocytes % (Manual) Eosinophils % (Manual) Seg Neutrophils # Lymphocytes # (Manual) Eosinophils # (Manual) PT INR D-Dimer POC ABG pH POC ABG pCO2 POC ABG pO2 ABG pO2 ABG HCO3 ABG Base Excess ABG Hemoglobin Oxyhemoglobin Sodium Potassium Chloride 96.9 L Carbon Dioxide 33 H BUN 37 H Creatinine 2.4 H Glucose POC Glucose 108 H Calcium 10.3 H Phosphorus Magnesium ALT Alkaline Phosphatase Total Creatine Kinase CK-MB (CK-2) Rel Index Troponin T Albumin LDL Cholesterol Direct PTH Intact Salicylates Acetaminophen Crossmatch 03/31/19 04/01/19 04/01/19 12:38 05:48 12:06 WBC RBC Hgb Hct MCH MCHC RDW Lymph % (Auto) Williamson % (Auto) Eos % (Auto) Lymph # Williamson # Eos # Seg Neutrophils % Seg Neuts % (Manual) Lymphocytes % (Manual) Eosinophils % (Manual) Seg Neutrophils # Lymphocytes # (Manual) Eosinophils # (Manual) PT INR D-Dimer POC ABG pH POC ABG pCO2 POC ABG pO2 ABG pO2 ABG HCO3 ABG Base Excess ABG Hemoglobin Oxyhemoglobin Sodium Potassium Chloride Carbon Dioxide BUN Creatinine Glucose POC Glucose 108 H 114 H 111 H Calcium Phosphorus Magnesium ALT Alkaline Phosphatase Total Creatine Kinase CK-MB (CK-2) Rel Index Troponin T Albumin LDL Cholesterol Direct PTH Intact Salicylates Acetaminophen Crossmatch 04/01/19 04/02/19 04/04/19 18:24 00:36 23:55 WBC RBC Hgb Hct MCH MCHC RDW Lymph % (Auto) Williamson % (Auto) Eos % (Auto) Lymph # Williamson # Eos # Seg Neutrophils % Seg Neuts % (Manual) Lymphocytes % (Manual) Eosinophils % (Manual) Seg Neutrophils # Lymphocytes # (Manual) Eosinophils # (Manual) PT INR D-Dimer POC ABG pH POC ABG pCO2 POC ABG pO2 ABG pO2 ABG HCO3 ABG Base Excess ABG Hemoglobin Oxyhemoglobin Sodium Potassium Chloride Carbon Dioxide BUN Creatinine Glucose POC Glucose 113 H 117 H 109 H Calcium Phosphorus Magnesium ALT Alkaline Phosphatase Total Creatine Kinase CK-MB (CK-2) Rel Index Troponin T Albumin LDL Cholesterol Direct PTH Intact Salicylates Acetaminophen Crossmatch 04/06/19 04/06/19 04/06/19 00:11 06:02 23:30 WBC RBC Hgb Hct MCH MCHC RDW Lymph % (Auto) Williamson % (Auto) Eos % (Auto) Lymph # Williamson # Eos # Seg Neutrophils % Seg Neuts % (Manual) Lymphocytes % (Manual) Eosinophils % (Manual) Seg Neutrophils # Lymphocytes # (Manual) Eosinophils # (Manual) PT INR D-Dimer POC ABG pH POC ABG pCO2 POC ABG pO2 ABG pO2 ABG HCO3 ABG Base Excess ABG Hemoglobin Oxyhemoglobin Sodium Potassium Chloride Carbon Dioxide BUN Creatinine Glucose POC Glucose 116 H 112 H 112 H Calcium Phosphorus Magnesium ALT Alkaline Phosphatase Total Creatine Kinase CK-MB (CK-2) Rel Index Troponin T Albumin LDL Cholesterol Direct PTH Intact Salicylates Acetaminophen Crossmatch 04/08/19 04/08/19 02:23 06:19 WBC RBC Hgb Hct MCH MCHC RDW Lymph % (Auto) Williamson % (Auto) Eos % (Auto) Lymph # Williamson # Eos # Seg Neutrophils % Seg Neuts % (Manual) Lymphocytes % (Manual) Eosinophils % (Manual) Seg Neutrophils # Lymphocytes # (Manual) Eosinophils # (Manual) PT INR D-Dimer POC ABG pH POC ABG pCO2 POC ABG pO2 ABG pO2 ABG HCO3 ABG Base Excess ABG Hemoglobin Oxyhemoglobin Sodium Potassium Chloride Carbon Dioxide BUN Creatinine Glucose POC Glucose 144 H 126 H Calcium Phosphorus Magnesium ALT Alkaline Phosphatase Total Creatine Kinase CK-MB (CK-2) Rel Index Troponin T Albumin LDL Cholesterol Direct PTH Intact Salicylates Acetaminophen Crossmatch
[2019-04-08] MEDS: FAMOTIDINE 20 MG TAB PO SCH (13:47)
[2019-04-08] MEDS: SERTRALINE 100 MG TAB PO SCH (13:47)
[2019-04-08] MEDS: SODIUM HYPOCHLORITE, DAKIN'S 1/2 STRENGTH (0.25%) 473 ML TOPICAL SOLN TP SCH ×2 (13:47→22:10)
[2019-04-08] MEDS: risperiDONE 1 MG TAB PO SCH (13:47)
[2019-04-08] MEDS: INSULIN REGULAR, HUMAN 100 UNITS/1 ML SUB-Q SCH (13:48)
[2019-04-09] MEDS: SCOPOLAMINE TRANSDERMAL PATCH 72 HR TD SCH (04:20)
[2019-04-09] MEDS: INSULIN REGULAR, HUMAN 100 UNITS/1 ML SUB-Q SCH ×3 (06:04→12:27)
[2019-04-09] MEDS: IPRATROPIUM/ALBUTEROL SULFATE 3 ML AMPUL.NEB IH SCH ×3 (09:23→19:53)
--- NOTE | 2019-04-09 10:52 | Progress Note ---
Assessment and Plan 63 y/o male with multiple medical issues admitted with altered mental status, acute respiratory failure requiring mechanical ventilation No new recommendations for today. Please see below. 1. Finished therapy for Acinetobacter. 2. Continue T-piece 3. HD per renal 4. Awaiting placement. Subjective Date of service: 04/09/19 Principal diagnosis: Respiratory failure, acute on chronic systolic HF, ESRD Interval history: No acute events. Stable on T-piece. Still awaiting placement Objective Vital Signs - 12hr 04/08/19 04/09/19 04/09/19 23:19 02:15 03:50 Temperature 98.6 F 98.6 F Pulse Rate 81 80 Pulse Rate [ Anterior Bilateral Throughout] Respiratory 19 18 Rate Respiratory Rate [Anterior Bilateral Throughout] Blood Pressure 100/67 104/58 O2 Sat by Pulse 100 100 Oximetry O2 Sat by Pulse 100 Oximetry [ Assessment] 04/09/19 04/09/19 04/09/19 07:29 08:00 09:30 Temperature 99.2 F Pulse Rate 79 Pulse Rate [ 84 Anterior Bilateral Throughout] Respiratory 18 Rate Respiratory 20 Rate [Anterior Bilateral Throughout] Blood Pressure 133/50 O2 Sat by Pulse 100 100 Oximetry O2 Sat by Pulse 100 Oximetry [ Assessment] Constitutional: no acute distress, alert Eyes: non-icteric ENT: oropharynx moist Neck: supple Effort: normal Ascultation: Bilateral: diminished breath sounds, other (coarse BS bilaterally) Percussion: Bilateral: not dull Cardiovascular: other (tachy, RR; no mrg) Gastrointestinal: normoactive bowel sounds, soft, non-tender, non-distended, other (ostomy in place, brown stool) Extremities: no cyanosis, no edema, pink and warm Neurologic: other (mild weakness LUE, o/w nonfocal) Psychiatric: other (unable to assess) CBC and BMP: 03/31/19 10:26 03/31/19 10:26 ABG, PT/INR, D-dimer: ABG POC ABG pH 7.510 (7.35-7.45) H 03/18/19 06:38 ABG pH 7.424 pH Units (7.350-7.450) 03/19/19 04:23 POC ABG pCO2 38.9 (35-45) 03/18/19 06:38 ABG pCO2 48.0 mm Hg 03/19/19 04:23 POC ABG pO2 164 (80-105) H 03/18/19 06:38 ABG pO2 78.3 mm Hg (80.0-90.0) L 03/19/19 04:23 POC ABG HCO3 31.0 (22-26 mml/L) 03/18/19 06:38 POC ABG Total CO2 32 (23-27mmol/L) 03/18/19 06:38 POC ABG O2 Sat 100 03/18/19 06:38 ABG O2 Saturation 97.0 % (95.0-99.0) 03/19/19 04:23 PT/INR, D-dimer PT 16.3 Sec. (12.2-14.9) H 03/01/19 09:39 INR 1.35 (0.87-1.13) H 03/01/19 09:39 2987.82 ng/mlDDU (0-234) H 02/22/19 05:54 Abnormal lab findings: Abnormal Labs 02/21/19 02/21/19 02/21/19 18:30 18:30 18:30 WBC RBC 3.26 L Hgb 8.8 L Hct 29.0 L MCH 27 L MCHC 30 L RDW 19.1 H Lymph % (Auto) 6.1 L [place] % (Auto) Eos % (Auto) Lymph # 0.4 L [place] # Eos # Seg Neutrophils % 86.2 H Seg Neuts % (Manual) Lymphocytes % (Manual) Eosinophils % (Manual) Seg Neutrophils # Lymphocytes # (Manual) Eosinophils # (Manual) PT INR D-Dimer POC ABG pH POC ABG pCO2 POC ABG pO2 ABG pO2 ABG HCO3 ABG Base Excess ABG Hemoglobin Oxyhemoglobin Sodium 133 L Potassium 3.3 L Chloride 93.1 L Carbon Dioxide 33 H BUN Creatinine Glucose 161 H POC Glucose Calcium Phosphorus Magnesium ALT Alkaline Phosphatase 136 H Total Creatine Kinase 37 L CK-MB (CK-2) Rel Index Troponin T 0.192 H* Albumin 2.4 L LDL Cholesterol Direct 36 L PTH Intact Salicylates Acetaminophen Crossmatch 02/21/19 02/21/19 02/21/19 18:42 20:04 20:04 WBC RBC Hgb Hct MCH MCHC RDW Lymph % (Auto) [place] % (Auto) Eos % (Auto) Lymph # [place] # Eos # Seg Neutrophils % Seg Neuts % (Manual) Lymphocytes % (Manual) Eosinophils % (Manual) Seg Neutrophils # Lymphocytes # (Manual) Eosinophils # (Manual) PT INR D-Dimer POC ABG pH POC ABG pCO2 56.7 H POC ABG pO2 291 H ABG pO2 ABG HCO3 ABG Base Excess ABG Hemoglobin Oxyhemoglobin Sodium Potassium Chloride Carbon Dioxide BUN Creatinine Glucose POC Glucose Calcium Phosphorus Magnesium ALT Alkaline Phosphatase Total Creatine Kinase CK-MB (CK-2) Rel Index Troponin T Albumin LDL Cholesterol Direct PTH Intact Salicylates < 0.3 L Acetaminophen < 5.0 L Crossmatch 02/21/19 02/22/19 02/22/19 22:35 03:42 03:42 WBC RBC 3.20 L Hgb 8.8 L Hct 27.6 L MCH MCHC RDW 18.9 H Lymph % (Auto) 7.4 L [place] % (Auto) Eos % (Auto) Lymph # 0.7 L [place] # Eos # Seg Neutrophils % 84.7 H Seg Neuts % (Manual) Lymphocytes % (Manual) Eosinophils % (Manual) Seg Neutrophils # Lymphocytes # (Manual) Eosinophils # (Manual) PT INR D-Dimer POC ABG pH POC ABG pCO2 POC ABG pO2 ABG pO2 ABG HCO3 ABG Base Excess ABG Hemoglobin Oxyhemoglobin Sodium 134 L Potassium 2.6 L* D Chloride Carbon Dioxide BUN Creatinine Glucose POC Glucose Calcium Phosphorus Magnesium ALT Alkaline Phosphatase Total Creatine Kinase CK-MB (CK-2) Rel Index 5.2 H Troponin T 0.202 H* Albumin LDL Cholesterol Direct PTH Intact Salicylates Acetaminophen Crossmatch 02/22/19 02/22/19 02/22/19 03:42 05:54 09:04 WBC RBC Hgb Hct MCH MCHC RDW Lymph % (Auto) [place] % (Auto) Eos % (Auto) Lymph # [place] # Eos # Seg Neutrophils % Seg Neuts % (Manual) Lymphocytes % (Manual) Eosinophils % (Manual) Seg Neutrophils # Lymphocytes # (Manual) Eosinophils # (Manual) PT INR D-Dimer 2987.82 H POC ABG pH 7.451 H POC ABG pCO2 POC ABG pO2 ABG pO2 ABG HCO3 ABG Base Excess ABG Hemoglobin Oxyhemoglobin Sodium Potassium Chloride Carbon Dioxide BUN Creatinine Glucose POC Glucose Calcium Phosphorus Magnesium ALT Alkaline Phosphatase Total Creatine Kinase CK-MB (CK-2) Rel Index 5.7 H Troponin T 0.193 H* Albumin LDL Cholesterol Direct PTH Intact Salicylates Acetaminophen Crossmatch 02/22/19 02/22/19 02/23/19 10:36 23:56 00:52 WBC RBC Hgb Hct MCH MCHC RDW Lymph % (Auto) [place] % (Auto) Eos % (Auto) Lymph # [place] # Eos # Seg Neutrophils % Seg Neuts % (Manual) Lymphocytes % (Manual) Eosinophils % (Manual) Seg Neutrophils # Lymphocytes # (Manual) Eosinophils # (Manual) PT INR D-Dimer POC ABG pH POC ABG pCO2 POC ABG pO2 ABG pO2 ABG HCO3 ABG Base Excess ABG Hemoglobin Oxyhemoglobin Sodium Potassium 3.1 L Chloride Carbon Dioxide BUN Creatinine Glucose POC Glucose 58 L 111 H Calcium Phosphorus Magnesium ALT Alkaline Phosphatase Total Creatine Kinase CK-MB (CK-2) Rel Index Troponin T Albumin LDL Cholesterol Direct PTH Intact Salicylates Acetaminophen Crossmatch 02/23/19 02/23/19 02/23/19 05:00 06:35 14:26 WBC RBC Hgb Hct MCH MCHC RDW Lymph % (Auto) [place] % (Auto) Eos % (Auto) Lymph # [place] # Eos # Seg Neutrophils % Seg Neuts % (Manual) Lymphocytes % (Manual) Eosinophils % (Manual) Seg Neutrophils # Lymphocytes # (Manual) Eosinophils # (Manual) PT INR D-Dimer POC ABG pH POC ABG pCO2 POC ABG pO2 ABG pO2 ABG HCO3 ABG Base Excess ABG Hemoglobin Oxyhemoglobin Sodium 135 L Potassium 3.1 L Chloride Carbon Dioxide BUN 21 H Creatinine 2.0 H Glucose 57 L POC Glucose 64 L 62 L Calcium Phosphorus Magnesium ALT Alkaline Phosphatase Total Creatine Kinase CK-MB (CK-2) Rel Index Troponin T Albumin LDL Cholesterol Direct PTH Intact Salicylates Acetaminophen Crossmatch 02/24/19 02/24/19 02/24/19 02:11 04:12 04:55 WBC RBC 2.84 L Hgb 7.8 L Hct 24.5 L MCH MCHC RDW 19.5 H Lymph % (Auto) [place] % (Auto) Eos % (Auto) Lymph # [place] # Eos # Seg Neutrophils % Seg Neuts % (Manual) Lymphocytes % (Manual) Eosinophils % (Manual) Seg Neutrophils # Lymphocytes # (Manual) Eosinophils # (Manual) PT INR D-Dimer POC ABG pH 7.511 H POC ABG pCO2 33.9 L POC ABG pO2 62 L ABG pO2 ABG HCO3 ABG Base Excess ABG Hemoglobin Oxyhemoglobin Sodium Potassium Chloride Carbon Dioxide BUN Creatinine Glucose POC Glucose 69 L Calcium Phosphorus Magnesium ALT Alkaline Phosphatase Total Creatine Kinase CK-MB (CK-2) Rel Index Troponin T Albumin LDL Cholesterol Direct PTH Intact Salicylates Acetaminophen Crossmatch 02/24/19 02/24/19 02/25/19 04:55 05:41 04:45 WBC RBC Hgb Hct MCH MCHC RDW Lymph % (Auto) [place] % (Auto) Eos % (Auto) Lymph # [place] # Eos # Seg Neutrophils % Seg Neuts % (Manual) Lymphocytes % (Manual) Eosinophils % (Manual) Seg Neutrophils # Lymphocytes # (Manual) Eosinophils # (Manual) PT INR D-Dimer POC ABG pH 7.466 H POC ABG pCO2 POC ABG pO2 75 L ABG pO2 ABG HCO3 ABG Base Excess ABG Hemoglobin Oxyhemoglobin Sodium Potassium Chloride Carbon Dioxide BUN Creatinine 1.8 H Glucose 73 L POC Glucose 127 H Calcium Phosphorus Magnesium ALT Alkaline Phosphatase Total Creatine Kinase CK-MB (CK-2) Rel Index Troponin T Albumin LDL Cholesterol Direct PTH Intact Salicylates Acetaminophen Crossmatch 02/25/19 02/25/19 02/26/19 16:34 21:33 03:45 WBC RBC 2.96 L Hgb 8.0 L Hct 25.8 L MCH 27 L MCHC 31 L RDW 20.0 H Lymph % (Auto) [place] % (Auto) Eos % (Auto) Lymph # [place] # Eos # Seg Neutrophils % Seg Neuts % (Manual) Lymphocytes % (Manual) Eosinophils % (Manual) Seg Neutrophils # Lymphocytes # (Manual) Eosinophils # (Manual) PT INR D-Dimer POC ABG pH POC ABG pCO2 POC ABG pO2 ABG pO2 ABG HCO3 ABG Base Excess ABG Hemoglobin Oxyhemoglobin Sodium Potassium Chloride Carbon Dioxide BUN Creatinine Glucose POC Glucose 141 H 106 H Calcium Phosphorus Magnesium ALT Alkaline Phosphatase Total Creatine Kinase CK-MB (CK-2) Rel Index Troponin T Albumin LDL Cholesterol Direct PTH Intact Salicylates Acetaminophen Crossmatch 02/26/19 02/26/19 02/26/19 03:45 04:13 07:53 WBC RBC Hgb Hct MCH MCHC RDW Lymph % (Auto) [place] % (Auto) Eos % (Auto) Lymph # [place] # Eos # Seg Neutrophils % Seg Neuts % (Manual) Lymphocytes % (Manual) Eosinophils % (Manual) Seg Neutrophils # Lymphocytes # (Manual) Eosinophils # (Manual) PT INR D-Dimer POC ABG pH 7.470 H POC ABG pCO2 POC ABG pO2 ABG pO2 ABG HCO3 ABG Base Excess ABG Hemoglobin Oxyhemoglobin Sodium Potassium Chloride Carbon Dioxide BUN Creatinine 1.8 H Glucose POC Glucose 110 H Calcium Phosphorus Magnesium ALT Alkaline Phosphatase Total Creatine Kinase CK-MB (CK-2) Rel Index Troponin T Albumin LDL Cholesterol Direct PTH Intact Salicylates Acetaminophen Crossmatch 02/26/19 02/26/19 02/27/19 11:56 17:43 00:12 WBC RBC Hgb Hct MCH MCHC RDW Lymph % (Auto) [place] % (Auto) Eos % (Auto) Lymph # [place] # Eos # Seg Neutrophils % Seg Neuts % (Manual) Lymphocytes % (Manual) Eosinophils % (Manual) Seg Neutrophils # Lymphocytes # (Manual) Eosinophils # (Manual) PT INR D-Dimer POC ABG pH POC ABG pCO2 POC ABG pO2 ABG pO2 ABG HCO3 ABG Base Excess ABG Hemoglobin Oxyhemoglobin Sodium Potassium Chloride Carbon Dioxide BUN Creatinine Glucose POC Glucose 112 H 127 H 127 H Calcium Phosphorus Magnesium ALT Alkaline Phosphatase Total Creatine Kinase CK-MB (CK-2) Rel Index Troponin T Albumin LDL Cholesterol Direct PTH Intact Salicylates Acetaminophen Crossmatch 02/27/19 02/27/19 02/27/19 04:35 13:15 18:02 WBC RBC Hgb Hct MCH MCHC RDW Lymph % (Auto) [place] % (Auto) Eos % (Auto) Lymph # [place] # Eos # Seg Neutrophils % Seg Neuts % (Manual) Lymphocytes % (Manual) Eosinophils % (Manual) Seg Neutrophils # Lymphocytes # (Manual) Eosinophils # (Manual) PT INR D-Dimer POC ABG pH 7.483 H POC ABG pCO2 POC ABG pO2 61 L ABG pO2 ABG HCO3 ABG Base Excess ABG Hemoglobin Oxyhemoglobin Sodium Potassium Chloride Carbon Dioxide BUN Creatinine Glucose POC Glucose 143 H 106 H Calcium Phosphorus Magnesium ALT Alkaline Phosphatase Total Creatine Kinase CK-MB (CK-2) Rel Index Troponin T Albumin LDL Cholesterol Direct PTH Intact Salicylates Acetaminophen Crossmatch 02/28/19 02/28/19 02/28/19 05:50 11:59 17:52 WBC RBC Hgb Hct MCH MCHC RDW Lymph % (Auto) [place] % (Auto) Eos % (Auto) Lymph # [place] # Eos # Seg Neutrophils % Seg Neuts % (Manual) Lymphocytes % (Manual) Eosinophils % (Manual) Seg Neutrophils # Lymphocytes # (Manual) Eosinophils # (Manual) PT INR D-Dimer POC ABG pH POC ABG pCO2 POC ABG pO2 ABG pO2 ABG HCO3 ABG Base Excess ABG Hemoglobin Oxyhemoglobin Sodium Potassium Chloride Carbon Dioxide BUN Creatinine Glucose POC Glucose 134 H 128 H 142 H Calcium Phosphorus Magnesium ALT Alkaline Phosphatase Total Creatine Kinase CK-MB (CK-2) Rel Index Troponin T Albumin LDL Cholesterol Direct PTH Intact Salicylates Acetaminophen Crossmatch 02/28/19 03/01/19 03/01/19 23:13 05:40 09:39 WBC RBC Hgb Hct MCH MCHC RDW Lymph % (Auto) [place] % (Auto) Eos % (Auto) Lymph # [place] # Eos # Seg Neutrophils % Seg Neuts % (Manual) Lymphocytes % (Manual) Eosinophils % (Manual) Seg Neutrophils # Lymphocytes # (Manual) Eosinophils # (Manual) PT 16.3 H INR 1.35 H D-Dimer POC ABG pH POC ABG pCO2 POC ABG pO2 ABG pO2 ABG HCO3 ABG Base Excess ABG Hemoglobin Oxyhemoglobin Sodium Potassium Chloride Carbon Dioxide BUN Creatinine Glucose POC Glucose 112 H 111 H Calcium Phosphorus Magnesium ALT Alkaline Phosphatase Total Creatine Kinase CK-MB (CK-2) Rel Index Troponin T Albumin LDL Cholesterol Direct PTH Intact Salicylates Acetaminophen Crossmatch 03/01/19 03/01/19 03/01/19 11:56 13:54 17:59 WBC RBC Hgb Hct MCH MCHC RDW Lymph % (Auto) [place] % (Auto) Eos % (Auto) Lymph # [place] # Eos # Seg Neutrophils % Seg Neuts % (Manual) Lymphocytes % (Manual) Eosinophils % (Manual) Seg Neutrophils # Lymphocytes # (Manual) Eosinophils # (Manual) PT INR D-Dimer POC ABG pH POC ABG pCO2 POC ABG pO2 ABG pO2 ABG HCO3 ABG Base Excess ABG Hemoglobin Oxyhemoglobin Sodium Potassium Chloride Carbon Dioxide BUN 33 H Creatinine 2.8 H D Glucose 176 H POC Glucose 199 H 147 H Calcium Phosphorus Magnesium ALT Alkaline Phosphatase Total Creatine Kinase CK-MB (CK-2) Rel Index Troponin T Albumin LDL Cholesterol Direct PTH Intact Salicylates Acetaminophen Crossmatch 03/02/19 03/02/19 03/02/19 05:15 05:15 05:15 WBC RBC 2.73 L Hgb 7.4 L Hct 23.0 L MCH 27 L MCHC RDW 19.9 H Lymph % (Auto) [place] % (Auto) 7.9 H Eos % (Auto) 7.6 H Lymph # 1.0 L [place] # Eos # 0.5 H Seg Neutrophils % Seg Neuts % (Manual) Lymphocytes % (Manual) Eosinophils % (Manual) Seg Neutrophils # Lymphocytes # (Manual) Eosinophils # (Manual) PT INR D-Dimer POC ABG pH POC ABG pCO2 POC ABG pO2 ABG pO2 ABG HCO3 ABG Base Excess ABG Hemoglobin Oxyhemoglobin Sodium Potassium Chloride Carbon Dioxide BUN 43 H Creatinine 3.2 H Glucose POC Glucose Calcium Phosphorus 2.30 L Magnesium ALT Alkaline Phosphatase Total Creatine Kinase CK-MB (CK-2) Rel Index Troponin T Albumin LDL Cholesterol Direct PTH Intact 267.6 H Salicylates Acetaminophen Crossmatch 03/02/19 03/02/19 03/03/19 12:32 18:20 13:30 WBC RBC Hgb Hct MCH MCHC RDW Lymph % (Auto) [place] % (Auto) Eos % (Auto) Lymph # [place] # Eos # Seg Neutrophils % Seg Neuts % (Manual) Lymphocytes % (Manual) Eosinophils % (Manual) Seg Neutrophils # Lymphocytes # (Manual) Eosinophils # (Manual) PT INR D-Dimer POC ABG pH POC ABG pCO2 POC ABG pO2 ABG pO2 ABG HCO3 ABG Base Excess ABG Hemoglobin Oxyhemoglobin Sodium Potassium Chloride 97.3 L Carbon Dioxide BUN 26 H Creatinine 2.2 H Glucose 73 L POC Glucose 111 H 156 H Calcium Phosphorus Magnesium ALT Alkaline Phosphatase Total Creatine Kinase CK-MB (CK-2) Rel Index Troponin T Albumin LDL Cholesterol Direct PTH Intact Salicylates Acetaminophen Crossmatch 03/04/19 03/04/19 03/04/19 00:02 05:37 05:40 WBC RBC 2.63 L Hgb 7.2 L Hct 22.2 L MCH MCHC RDW 20.2 H Lymph % (Auto) 10.5 L [place] % (Auto) Eos % (Auto) 4.6 H Lymph # 0.7 L [place] # Eos # Seg Neutrophils % 76.9 H Seg Neuts % (Manual) Lymphocytes % (Manual) Eosinophils % (Manual) Seg Neutrophils # Lymphocytes # (Manual) Eosinophils # (Manual) PT INR D-Dimer POC ABG pH POC ABG pCO2 POC ABG pO2 ABG pO2 ABG HCO3 ABG Base Excess ABG Hemoglobin Oxyhemoglobin Sodium Potassium Chloride Carbon Dioxide BUN Creatinine Glucose POC Glucose 136 H 123 H Calcium Phosphorus Magnesium ALT Alkaline Phosphatase Total Creatine Kinase CK-MB (CK-2) Rel Index Troponin T Albumin LDL Cholesterol Direct PTH Intact Salicylates Acetaminophen Crossmatch 03/04/19 03/04/19 03/04/19 05:40 11:39 23:20 WBC RBC Hgb Hct MCH MCHC RDW Lymph % (Auto) [place] % (Auto) Eos % (Auto) Lymph # [place] # Eos # Seg Neutrophils % Seg Neuts % (Manual) Lymphocytes % (Manual) Eosinophils % (Manual) Seg Neutrophils # Lymphocytes # (Manual) Eosinophils # (Manual) PT INR D-Dimer POC ABG pH POC ABG pCO2 POC ABG pO2 ABG pO2 ABG HCO3 ABG Base Excess ABG Hemoglobin Oxyhemoglobin Sodium Potassium Chloride Carbon Dioxide BUN 34 H Creatinine 2.7 H Glucose 114 H POC Glucose 175 H 151 H Calcium Phosphorus Magnesium ALT Alkaline Phosphatase Total Creatine Kinase CK-MB (CK-2) Rel Index Troponin T Albumin LDL Cholesterol Direct PTH Intact Salicylates Acetaminophen Crossmatch 03/05/19 03/05/19 03/05/19 05:37 12:08 17:11 WBC RBC Hgb Hct MCH MCHC RDW Lymph % (Auto) [place] % (Auto) Eos % (Auto) Lymph # [place] # Eos # Seg Neutrophils % Seg Neuts % (Manual) Lymphocytes % (Manual) Eosinophils % (Manual) Seg Neutrophils # Lymphocytes # (Manual) Eosinophils # (Manual) PT INR D-Dimer POC ABG pH POC ABG pCO2 POC ABG pO2 ABG pO2 ABG HCO3 ABG Base Excess ABG Hemoglobin Oxyhemoglobin Sodium Potassium Chloride Carbon Dioxide BUN Creatinine Glucose POC Glucose 134 H 135 H 135 H Calcium Phosphorus Magnesium ALT Alkaline Phosphatase Total Creatine Kinase CK-MB (CK-2) Rel Index Troponin T Albumin LDL Cholesterol Direct PTH Intact Salicylates Acetaminophen Crossmatch 03/06/19 03/06/19 03/06/19 00:16 13:05 18:09 WBC RBC Hgb Hct MCH MCHC RDW Lymph % (Auto) [place] % (Auto) Eos % (Auto) Lymph # [place] # Eos # Seg Neutrophils % Seg Neuts % (Manual) Lymphocytes % (Manual) Eosinophils % (Manual) Seg Neutrophils # Lymphocytes # (Manual) Eosinophils # (Manual) PT INR D-Dimer POC ABG pH POC ABG pCO2 POC ABG pO2 ABG pO2 ABG HCO3 ABG Base Excess ABG Hemoglobin Oxyhemoglobin Sodium Potassium Chloride Carbon Dioxide BUN Creatinine Glucose POC Glucose 117 H 113 H 131 H Calcium Phosphorus Magnesium ALT Alkaline Phosphatase Total Creatine Kinase CK-MB (CK-2) Rel Index Troponin T Albumin LDL Cholesterol Direct PTH Intact Salicylates Acetaminophen Crossmatch 03/07/19 03/08/19 03/08/19 05:25 05:33 16:00 WBC RBC 2.44 L Hgb 6.6 L Hct 20.8 L MCH 27 L MCHC RDW 19.2 H Lymph % (Auto) [place] % (Auto) Eos % (Auto) 8.6 H Lymph # 0.8 L [place] # Eos # 0.5 H Seg Neutrophils % 70.7 H Seg Neuts % (Manual) Lymphocytes % (Manual) Eosinophils % (Manual) Seg Neutrophils # Lymphocytes # (Manual) Eosinophils # (Manual) PT INR D-Dimer POC ABG pH POC ABG pCO2 POC ABG pO2 ABG pO2 ABG HCO3 ABG Base Excess ABG Hemoglobin Oxyhemoglobin Sodium Potassium Chloride Carbon Dioxide BUN Creatinine Glucose POC Glucose 106 H 108 H Calcium Phosphorus Magnesium ALT Alkaline Phosphatase Total Creatine Kinase CK-MB (CK-2) Rel Index Troponin T Albumin LDL Cholesterol Direct PTH Intact Salicylates Acetaminophen Crossmatch 03/08/19 03/08/19 03/08/19 16:00 18:38 Unknown WBC RBC Hgb Hct MCH MCHC RDW Lymph % (Auto) [place] % (Auto) Eos % (Auto) Lymph # [place] # Eos # Seg Neutrophils % Seg Neuts % (Manual) Lymphocytes % (Manual) Eosinophils % (Manual) Seg Neutrophils # Lymphocytes # (Manual) Eosinophils # (Manual) PT INR D-Dimer POC ABG pH POC ABG pCO2 POC ABG pO2 ABG pO2 ABG HCO3 ABG Base Excess ABG Hemoglobin Oxyhemoglobin Sodium Potassium 5.4 H D Chloride Carbon Dioxide BUN 47 H Creatinine 2.6 H Glucose POC Glucose 123 H Calcium Phosphorus Magnesium ALT < 5 L Alkaline Phosphatase Total Creatine Kinase CK-MB (CK-2) Rel Index Troponin T Albumin 2.2 L LDL Cholesterol Direct PTH Intact Salicylates Acetaminophen Crossmatch See Detail 03/09/19 03/09/19 03/09/19 10:48 12:28 13:53 WBC RBC 2.85 L Hgb 7.7 L Hct 24.2 L MCH 27 L MCHC RDW 18.7 H Lymph % (Auto) [place] % (Auto) Eos % (Auto) Lymph # [place] # Eos # Seg Neutrophils % Seg Neuts % (Manual) Lymphocytes % (Manual) Eosinophils % (Manual) Seg Neutrophils # Lymphocytes # (Manual) Eosinophils # (Manual) PT INR D-Dimer POC ABG pH POC ABG pCO2 POC ABG pO2 ABG pO2 ABG HCO3 30.5 H ABG Base Excess 5.6 H ABG Hemoglobin 8.1 L Oxyhemoglobin 93.8 L Sodium Potassium Chloride Carbon Dioxide BUN Creatinine Glucose POC Glucose 114 H Calcium Phosphorus Magnesium ALT Alkaline Phosphatase Total Creatine Kinase CK-MB (CK-2) Rel Index Troponin T Albumin LDL Cholesterol Direct PTH Intact Salicylates Acetaminophen Crossmatch 03/09/19 03/09/19 03/10/19 17:58 23:53 12:01 WBC RBC Hgb Hct MCH MCHC RDW Lymph % (Auto) [place] % (Auto) Eos % (Auto) Lymph # [place] # Eos # Seg Neutrophils % Seg Neuts % (Manual) Lymphocytes % (Manual) Eosinophils % (Manual) Seg Neutrophils # Lymphocytes # (Manual) Eosinophils # (Manual) PT INR D-Dimer POC ABG pH POC ABG pCO2 POC ABG pO2 ABG pO2 ABG HCO3 ABG Base Excess ABG Hemoglobin Oxyhemoglobin Sodium Potassium Chloride Carbon Dioxide BUN Creatinine Glucose POC Glucose 108 H 128 H 144 H Calcium Phosphorus Magnesium ALT Alkaline Phosphatase Total Creatine Kinase CK-MB (CK-2) Rel Index Troponin T Albumin LDL Cholesterol Direct PTH Intact Salicylates Acetaminophen Crossmatch 03/10/19 03/11/19 03/11/19 16:50 00:24 05:02 WBC RBC Hgb Hct MCH MCHC RDW Lymph % (Auto) [place] % (Auto) Eos % (Auto) Lymph # [place] # Eos # Seg Neutrophils % Seg Neuts % (Manual) Lymphocytes % (Manual) Eosinophils % (Manual) Seg Neutrophils # Lymphocytes # (Manual) Eosinophils # (Manual) PT INR D-Dimer POC ABG pH POC ABG pCO2 POC ABG pO2 ABG pO2 ABG HCO3 ABG Base Excess ABG Hemoglobin Oxyhemoglobin Sodium Potassium Chloride Carbon Dioxide BUN Creatinine Glucose POC Glucose 147 H 123 H 120 H Calcium Phosphorus Magnesium ALT Alkaline Phosphatase Total Creatine Kinase CK-MB (CK-2) Rel Index Troponin T Albumin LDL Cholesterol Direct PTH Intact Salicylates Acetaminophen Crossmatch 03/11/19 03/11/19 03/11/19 11:56 12:20 18:37 WBC RBC Hgb Hct MCH MCHC RDW Lymph % (Auto) [place] % (Auto) Eos % (Auto) Lymph # [place] # Eos # Seg Neutrophils % Seg Neuts % (Manual) Lymphocytes % (Manual) Eosinophils % (Manual) Seg Neutrophils # Lymphocytes # (Manual) Eosinophils # (Manual) PT INR D-Dimer POC ABG pH POC ABG pCO2 POC ABG pO2 ABG pO2 ABG HCO3 ABG Base Excess ABG Hemoglobin Oxyhemoglobin Sodium Potassium 5.2 H Chloride Carbon Dioxide BUN Creatinine Glucose POC Glucose 123 H 125 H Calcium Phosphorus Magnesium ALT Alkaline Phosphatase Total Creatine Kinase CK-MB (CK-2) Rel Index Troponin T Albumin LDL Cholesterol Direct PTH Intact Salicylates Acetaminophen Crossmatch 03/11/19 03/12/19 03/12/19 22:52 12:04 18:25 WBC RBC Hgb Hct MCH MCHC RDW Lymph % (Auto) [place] % (Auto) Eos % (Auto) Lymph # [place] # Eos # Seg Neutrophils % Seg Neuts % (Manual) Lymphocytes % (Manual) Eosinophils % (Manual) Seg Neutrophils # Lymphocytes # (Manual) Eosinophils # (Manual) PT INR D-Dimer POC ABG pH POC ABG pCO2 POC ABG pO2 ABG pO2 ABG HCO3 ABG Base Excess ABG Hemoglobin Oxyhemoglobin Sodium Potassium Chloride Carbon Dioxide BUN Creatinine Glucose POC Glucose 110 H 106 H 118 H Calcium Phosphorus Magnesium ALT Alkaline Phosphatase Total Creatine Kinase CK-MB (CK-2) Rel Index Troponin T Albumin LDL Cholesterol Direct PTH Intact Salicylates Acetaminophen Crossmatch 03/12/19 03/13/19 03/13/19 23:36 04:38 04:38 WBC RBC 2.95 L Hgb 7.9 L Hct 24.9 L MCH 27 L MCHC RDW 19.9 H Lymph % (Auto) 11.1 L [place] % (Auto) 8.1 H Eos % (Auto) 4.4 H Lymph # 0.9 L [place] # Eos # Seg Neutrophils % 75.4 H Seg Neuts % (Manual) Lymphocytes % (Manual) Eosinophils % (Manual) Seg Neutrophils # Lymphocytes # (Manual) Eosinophils # (Manual) PT INR D-Dimer POC ABG pH POC ABG pCO2 POC ABG pO2 ABG pO2 ABG HCO3 ABG Base Excess ABG Hemoglobin Oxyhemoglobin Sodium 136 L Potassium 5.1 H Chloride 93.8 L Carbon Dioxide BUN 48 H Creatinine 2.7 H Glucose 102 H POC Glucose 115 H Calcium Phosphorus Magnesium ALT < 5 L Alkaline Phosphatase 143 H Total Creatine Kinase CK-MB (CK-2) Rel Index Troponin T Albumin 2.5 L LDL Cholesterol Direct PTH Intact Salicylates Acetaminophen Crossmatch 03/13/19 03/13/19 03/13/19 05:33 13:37 18:03 WBC RBC Hgb Hct MCH MCHC RDW Lymph % (Auto) [place] % (Auto) Eos % (Auto) Lymph # [place] # Eos # Seg Neutrophils % Seg Neuts % (Manual) Lymphocytes % (Manual) Eosinophils % (Manual) Seg Neutrophils # Lymphocytes # (Manual) Eosinophils # (Manual) PT INR D-Dimer POC ABG pH POC ABG pCO2 POC ABG pO2 ABG pO2 ABG HCO3 ABG Base Excess ABG Hemoglobin Oxyhemoglobin Sodium Potassium Chloride Carbon Dioxide BUN Creatinine Glucose POC Glucose 140 H 150 H 158 H Calcium Phosphorus Magnesium ALT Alkaline Phosphatase Total Creatine Kinase CK-MB (CK-2) Rel Index Troponin T Albumin LDL Cholesterol Direct PTH Intact Salicylates Acetaminophen Crossmatch 03/13/19 03/14/19 03/14/19 23:32 05:24 12:20 WBC RBC Hgb Hct MCH MCHC RDW Lymph % (Auto) [place] % (Auto) Eos % (Auto) Lymph # [place] # Eos # Seg Neutrophils % Seg Neuts % (Manual) Lymphocytes % (Manual) Eosinophils % (Manual) Seg Neutrophils # Lymphocytes # (Manual) Eosinophils # (Manual) PT INR D-Dimer POC ABG pH POC ABG pCO2 POC ABG pO2 ABG pO2 ABG HCO3 ABG Base Excess ABG Hemoglobin Oxyhemoglobin Sodium Potassium Chloride Carbon Dioxide BUN Creatinine Glucose POC Glucose 162 H 146 H 127 H Calcium Phosphorus Magnesium ALT Alkaline Phosphatase Total Creatine Kinase CK-MB (CK-2) Rel Index Troponin T Albumin LDL Cholesterol Direct PTH Intact Salicylates Acetaminophen Crossmatch 03/14/19 03/14/19 03/15/19 18:05 23:57 04:38 WBC 12.8 H RBC 3.11 L Hgb 8.1 L Hct 26.5 L MCH 26 L MCHC 31 L RDW 19.7 H Lymph % (Auto) 4.4 L [place] % (Auto) 7.4 H Eos % (Auto) Lymph # 0.6 L [place] # 0.9 H Eos # Seg Neutrophils % 87.3 H Seg Neuts % (Manual) Lymphocytes % (Manual) Eosinophils % (Manual) Seg Neutrophils # 11.2 H Lymphocytes # (Manual) Eosinophils # (Manual) PT INR D-Dimer POC ABG pH POC ABG pCO2 POC ABG pO2 ABG pO2 ABG HCO3 ABG Base Excess ABG Hemoglobin Oxyhemoglobin Sodium Potassium Chloride Carbon Dioxide BUN Creatinine Glucose POC Glucose 142 H 155 H Calcium Phosphorus Magnesium ALT Alkaline Phosphatase Total Creatine Kinase CK-MB (CK-2) Rel Index Troponin T Albumin LDL Cholesterol Direct PTH Intact Salicylates Acetaminophen Crossmatch 03/15/19 03/15/19 03/15/19 04:38 05:31 11:32 WBC RBC Hgb Hct MCH MCHC RDW Lymph % (Auto) [place] % (Auto) Eos % (Auto) Lymph # [place] # Eos # Seg Neutrophils % Seg Neuts % (Manual) Lymphocytes % (Manual) Eosinophils % (Manual) Seg Neutrophils # Lymphocytes # (Manual) Eosinophils # (Manual) PT INR D-Dimer POC ABG pH POC ABG pCO2 POC ABG pO2 ABG pO2 ABG HCO3 ABG Base Excess ABG Hemoglobin Oxyhemoglobin Sodium 135 L Potassium Chloride 91.9 L Carbon Dioxide BUN 54 H Creatinine 2.8 H Glucose 128 H POC Glucose 160 H 109 H Calcium 11.1 H Phosphorus Magnesium ALT Alkaline Phosphatase 161 H Total Creatine Kinase CK-MB (CK-2) Rel Index Troponin T Albumin 2.3 L LDL Cholesterol Direct PTH Intact Salicylates Acetaminophen Crossmatch 03/15/19 03/15/19 03/16/19 18:15 23:41 05:40 WBC RBC Hgb Hct MCH MCHC RDW Lymph % (Auto) [place] % (Auto) Eos % (Auto) Lymph # [place] # Eos # Seg Neutrophils % Seg Neuts % (Manual) Lymphocytes % (Manual) Eosinophils % (Manual) Seg Neutrophils # Lymphocytes # (Manual) Eosinophils # (Manual) PT INR D-Dimer POC ABG pH POC ABG pCO2 POC ABG pO2 ABG pO2 ABG HCO3 ABG Base Excess ABG Hemoglobin Oxyhemoglobin Sodium Potassium Chloride Carbon Dioxide BUN Creatinine Glucose POC Glucose 151 H 110 H 163 H Calcium Phosphorus Magnesium ALT Alkaline Phosphatase Total Creatine Kinase CK-MB (CK-2) Rel Index Troponin T Albumin LDL Cholesterol Direct PTH Intact Salicylates Acetaminophen Crossmatch 03/16/19 03/16/19 03/16/19 11:55 17:04 23:58 WBC RBC Hgb Hct MCH MCHC RDW Lymph % (Auto) [place] % (Auto) Eos % (Auto) Lymph # [place] # Eos # Seg Neutrophils % Seg Neuts % (Manual) Lymphocytes % (Manual) Eosinophils % (Manual) Seg Neutrophils # Lymphocytes # (Manual) Eosinophils # (Manual) PT INR D-Dimer POC ABG pH POC ABG pCO2 POC ABG pO2 ABG pO2 ABG HCO3 ABG Base Excess ABG Hemoglobin Oxyhemoglobin Sodium Potassium Chloride Carbon Dioxide BUN Creatinine Glucose POC Glucose 114 H 147 H 192 H Calcium Phosphorus Magnesium ALT Alkaline Phosphatase Total Creatine Kinase CK-MB (CK-2) Rel Index Troponin T Albumin LDL Cholesterol Direct PTH Intact Salicylates Acetaminophen Crossmatch 03/17/19 03/17/19 03/17/19 05:53 11:17 17:01 WBC RBC Hgb Hct MCH MCHC RDW Lymph % (Auto) [place] % (Auto) Eos % (Auto) Lymph # [place] # Eos # Seg Neutrophils % Seg Neuts % (Manual) Lymphocytes % (Manual) Eosinophils % (Manual) Seg Neutrophils # Lymphocytes # (Manual) Eosinophils # (Manual) PT INR D-Dimer POC ABG pH POC ABG pCO2 POC ABG pO2 ABG pO2 ABG HCO3 ABG Base Excess ABG Hemoglobin Oxyhemoglobin Sodium Potassium Chloride Carbon Dioxide BUN Creatinine Glucose POC Glucose 151 H 161 H 152 H Calcium Phosphorus Magnesium ALT Alkaline Phosphatase Total Creatine Kinase CK-MB (CK-2) Rel Index Troponin T Albumin LDL Cholesterol Direct PTH Intact Salicylates Acetaminophen Crossmatch 03/17/19 03/18/19 03/18/19 21:47 04:15 04:44 WBC RBC Hgb Hct MCH MCHC RDW Lymph % (Auto) [place] % (Auto) Eos % (Auto) Lymph # [place] # Eos # Seg Neutrophils % Seg Neuts % (Manual) Lymphocytes % (Manual) Eosinophils % (Manual) Seg Neutrophils # Lymphocytes # (Manual) Eosinophils # (Manual) PT INR D-Dimer POC ABG pH POC ABG pCO2 POC ABG pO2 ABG pO2 102.8 H ABG HCO3 28.3 H ABG Base Excess ABG Hemoglobin 10.4 L Oxyhemoglobin 94.5 L Sodium Potassium Chloride Carbon Dioxide BUN Creatinine Glucose POC Glucose 170 H 150 H Calcium Phosphorus Magnesium ALT Alkaline Phosphatase Total Creatine Kinase CK-MB (CK-2) Rel Index Troponin T Albumin LDL Cholesterol Direct PTH Intact Salicylates Acetaminophen Crossmatch 03/18/19 03/18/19 03/18/19 06:38 12:12 17:47 WBC RBC Hgb Hct MCH MCHC RDW Lymph % (Auto) [place] % (Auto) Eos % (Auto) Lymph # [place] # Eos # Seg Neutrophils % Seg Neuts % (Manual) Lymphocytes % (Manual) Eosinophils % (Manual) Seg Neutrophils # Lymphocytes # (Manual) Eosinophils # (Manual) PT INR D-Dimer POC ABG pH 7.510 H POC ABG pCO2 POC ABG pO2 164 H ABG pO2 ABG HCO3 ABG Base Excess ABG Hemoglobin Oxyhemoglobin Sodium Potassium Chloride Carbon Dioxide BUN Creatinine Glucose POC Glucose 145 H 149 H Calcium Phosphorus Magnesium ALT Alkaline Phosphatase Total Creatine Kinase CK-MB (CK-2) Rel Index Troponin T Albumin LDL Cholesterol Direct PTH Intact Salicylates Acetaminophen Crossmatch 03/18/19 03/19/19 03/19/19 23:25 01:11 04:23 WBC 15.6 H RBC 2.51 L Hgb 6.5 L Hct 21.6 L MCH 26 L MCHC 30 L RDW 19.8 H Lymph % (Auto) 6.0 L [place] % (Auto) Eos % (Auto) Lymph # 0.9 L [place] # 1.0 H Eos # Seg Neutrophils % 85.5 H Seg Neuts % (Manual) Lymphocytes % (Manual) Eosinophils % (Manual) Seg Neutrophils # 13.4 H Lymphocytes # (Manual) Eosinophils # (Manual) PT INR D-Dimer POC ABG pH POC ABG pCO2 POC ABG pO2 ABG pO2 78.3 L ABG HCO3 30.7 H ABG Base Excess 5.8 H ABG Hemoglobin 5.8 L Oxyhemoglobin 94.6 L Sodium Potassium Chloride Carbon Dioxide BUN Creatinine Glucose POC Glucose 190 H Calcium Phosphorus Magnesium ALT Alkaline Phosphatase Total Creatine Kinase CK-MB (CK-2) Rel Index Troponin T Albumin LDL Cholesterol Direct PTH Intact Salicylates Acetaminophen Crossmatch 03/19/19 03/19/19 03/19/19 05:22 05:35 08:54 WBC RBC Hgb Hct MCH MCHC RDW Lymph % (Auto) [place] % (Auto) Eos % (Auto) Lymph # [place] # Eos # Seg Neutrophils % Seg Neuts % (Manual) Lymphocytes % (Manual) Eosinophils % (Manual) Seg Neutrophils # Lymphocytes # (Manual) Eosinophils # (Manual) PT INR D-Dimer POC ABG pH POC ABG pCO2 POC ABG pO2 ABG pO2 ABG HCO3 ABG Base Excess ABG Hemoglobin Oxyhemoglobin Sodium Potassium Chloride Carbon Dioxide BUN Creatinine Glucose POC Glucose 167 H Calcium Phosphorus Magnesium ALT Alkaline Phosphatase Total Creatine Kinase CK-MB (CK-2) Rel Index Troponin T Albumin LDL Cholesterol Direct PTH Intact Salicylates Acetaminophen Crossmatch See Detail See Detail 03/19/19 03/19/19 03/19/19 12:36 17:02 23:25 WBC RBC Hgb Hct MCH MCHC RDW Lymph % (Auto) [place] % (Auto) Eos % (Auto) Lymph # [place] # Eos # Seg Neutrophils % Seg Neuts % (Manual) Lymphocytes % (Manual) Eosinophils % (Manual) Seg Neutrophils # Lymphocytes # (Manual) Eosinophils # (Manual) PT INR D-Dimer POC ABG pH POC ABG pCO2 POC ABG pO2 ABG pO2 ABG HCO3 ABG Base Excess ABG Hemoglobin Oxyhemoglobin Sodium Potassium Chloride Carbon Dioxide BUN Creatinine Glucose POC Glucose 167 H 135 H 136 H Calcium Phosphorus Magnesium ALT Alkaline Phosphatase Total Creatine Kinase CK-MB (CK-2) Rel Index Troponin T Albumin LDL Cholesterol Direct PTH Intact Salicylates Acetaminophen Crossmatch 03/20/19 03/20/19 03/20/19 05:38 08:40 08:40 WBC RBC 2.61 L Hgb 7.1 L Hct 22.0 L MCH 27 L MCHC RDW 19.6 H Lymph % (Auto) 8.2 L [place] % (Auto) 8.3 H Eos % (Auto) 5.7 H Lymph # 0.8 L [place] # Eos # 0.5 H Seg Neutrophils % 77.3 H Seg Neuts % (Manual) Lymphocytes % (Manual) Eosinophils % (Manual) Seg Neutrophils # Lymphocytes # (Manual) Eosinophils # (Manual) PT INR D-Dimer POC ABG pH POC ABG pCO2 POC ABG pO2 ABG pO2 ABG HCO3 ABG Base Excess ABG Hemoglobin Oxyhemoglobin Sodium Potassium Chloride 95.9 L Carbon Dioxide BUN 69 H Creatinine 2.8 H Glucose 115 H POC Glucose 134 H Calcium 10.5 H Phosphorus Magnesium ALT Alkaline Phosphatase Total Creatine Kinase CK-MB (CK-2) Rel Index Troponin T Albumin LDL Cholesterol Direct PTH Intact Salicylates Acetaminophen Crossmatch 03/20/19 03/20/19 03/20/19 12:13 18:04 23:49 WBC RBC Hgb Hct MCH MCHC RDW Lymph % (Auto) [place] % (Auto) Eos % (Auto) Lymph # [place] # Eos # Seg Neutrophils % Seg Neuts % (Manual) Lymphocytes % (Manual) Eosinophils % (Manual) Seg Neutrophils # Lymphocytes # (Manual) Eosinophils # (Manual) PT INR D-Dimer POC ABG pH POC ABG pCO2 POC ABG pO2 ABG pO2 ABG HCO3 ABG Base Excess ABG Hemoglobin Oxyhemoglobin Sodium Potassium Chloride Carbon Dioxide BUN Creatinine Glucose POC Glucose 144 H 165 H 172 H Calcium Phosphorus Magnesium ALT Alkaline Phosphatase Total Creatine Kinase CK-MB (CK-2) Rel Index Troponin T Albumin LDL Cholesterol Direct PTH Intact Salicylates Acetaminophen Crossmatch 03/21/19 03/21/19 03/21/19 05:00 06:29 06:30 WBC RBC 2.72 L Hgb 7.4 L Hct 22.9 L MCH 27 L MCHC RDW 19.4 H Lymph % (Auto) [place] % (Auto) Eos % (Auto) Lymph # [place] # Eos # Seg Neutrophils % Seg Neuts % (Manual) 81.0 H Lymphocytes % (Manual) 8.0 L Eosinophils % (Manual) 8.0 H Seg Neutrophils # Lymphocytes # (Manual) 0.7 L Eosinophils # (Manual) 0.7 H PT INR D-Dimer POC ABG pH POC ABG pCO2 POC ABG pO2 ABG pO2 ABG HCO3 ABG Base Excess ABG Hemoglobin Oxyhemoglobin Sodium Potassium Chloride Carbon Dioxide 33 H BUN 43 H Creatinine 1.7 H Glucose 145 H POC Glucose 156 H Calcium Phosphorus Magnesium ALT Alkaline Phosphatase 212 H Total Creatine Kinase CK-MB (CK-2) Rel Index Troponin T Albumin 2.2 L LDL Cholesterol Direct PTH Intact Salicylates Acetaminophen Crossmatch 03/21/19 03/21/19 03/22/19 12:02 18:07 00:21 WBC RBC Hgb Hct MCH MCHC RDW Lymph % (Auto) [place] % (Auto) Eos % (Auto) Lymph # [place] # Eos # Seg Neutrophils % Seg Neuts % (Manual) Lymphocytes % (Manual) Eosinophils % (Manual) Seg Neutrophils # Lymphocytes # (Manual) Eosinophils # (Manual) PT INR D-Dimer POC ABG pH POC ABG pCO2 POC ABG pO2 ABG pO2 ABG HCO3 ABG Base Excess ABG Hemoglobin Oxyhemoglobin Sodium Potassium Chloride Carbon Dioxide BUN Creatinine Glucose POC Glucose 163 H 144 H 153 H Calcium Phosphorus Magnesium ALT Alkaline Phosphatase Total Creatine Kinase CK-MB (CK-2) Rel Index Troponin T Albumin LDL Cholesterol Direct PTH Intact Salicylates Acetaminophen Crossmatch 03/22/19 03/22/19 03/22/19 05:23 05:23 05:31 WBC RBC 2.58 L Hgb 7.1 L Hct 21.8 L MCH 27 L MCHC RDW 19.2 H Lymph % (Auto) [place] % (Auto) Eos % (Auto) Lymph # [place] # Eos # Seg Neutrophils % Seg Neuts % (Manual) Lymphocytes % (Manual) Eosinophils % (Manual) Seg Neutrophils # Lymphocytes # (Manual) Eosinophils # (Manual) PT INR D-Dimer POC ABG pH POC ABG pCO2 POC ABG pO2 ABG pO2 ABG HCO3 ABG Base Excess ABG Hemoglobin Oxyhemoglobin Sodium 147 H Potassium Chloride Carbon Dioxide BUN 68 H Creatinine 2.5 H Glucose POC Glucose 116 H Calcium 10.3 H Phosphorus Magnesium ALT Alkaline Phosphatase Total Creatine Kinase CK-MB (CK-2) Rel Index Troponin T Albumin LDL Cholesterol Direct PTH Intact Salicylates Acetaminophen Crossmatch 03/22/19 03/22/19 03/22/19 08:48 12:37 17:35 WBC RBC Hgb Hct MCH MCHC RDW Lymph % (Auto) [place] % (Auto) Eos % (Auto) Lymph # [place] # Eos # Seg Neutrophils % Seg Neuts % (Manual) Lymphocytes % (Manual) Eosinophils % (Manual) Seg Neutrophils # Lymphocytes # (Manual) Eosinophils # (Manual) PT INR D-Dimer POC ABG pH POC ABG pCO2 POC ABG pO2 ABG pO2 ABG HCO3 ABG Base Excess ABG Hemoglobin Oxyhemoglobin Sodium Potassium Chloride Carbon Dioxide BUN Creatinine Glucose POC Glucose 143 H 155 H Calcium Phosphorus Magnesium ALT Alkaline Phosphatase Total Creatine Kinase CK-MB (CK-2) Rel Index Troponin T Albumin LDL Cholesterol Direct PTH Intact Salicylates Acetaminophen Crossmatch See Detail 03/23/19 03/23/19 03/23/19 00:07 04:00 04:00 WBC 11.2 H RBC 2.32 L Hgb 6.4 L Hct 19.7 L* MCH MCHC RDW 19.4 H Lymph % (Auto) [place] % (Auto) Eos % (Auto) Lymph # [place] # Eos # Seg Neutrophils % Seg Neuts % (Manual) Lymphocytes % (Manual) Eosinophils % (Manual) Seg Neutrophils # Lymphocytes # (Manual) Eosinophils # (Manual) PT INR D-Dimer POC ABG pH POC ABG pCO2 POC ABG pO2 ABG pO2 ABG HCO3 ABG Base Excess ABG Hemoglobin Oxyhemoglobin Sodium 147 H Potassium 5.2 H Chloride Carbon Dioxide BUN 86 H Creatinine 3.2 H Glucose 128 H POC Glucose 135 H Calcium 10.3 H Phosphorus Magnesium ALT Alkaline Phosphatase Total Creatine Kinase CK-MB (CK-2) Rel Index Troponin T Albumin LDL Cholesterol Direct PTH Intact Salicylates Acetaminophen Crossmatch 03/23/19 03/23/19 03/23/19 05:21 11:36 11:36 WBC RBC Hgb 7.9 L Hct 25.0 L MCH MCHC RDW Lymph % (Auto) [place] % (Auto) Eos % (Auto) Lymph # [place] # Eos # Seg Neutrophils % Seg Neuts % (Manual) Lymphocytes % (Manual) Eosinophils % (Manual) Seg Neutrophils # Lymphocytes # (Manual) Eosinophils # (Manual) PT INR D-Dimer POC ABG pH POC ABG pCO2 POC ABG pO2 ABG pO2 ABG HCO3 ABG Base Excess ABG Hemoglobin Oxyhemoglobin Sodium Potassium Chloride Carbon Dioxide BUN Creatinine Glucose POC Glucose 132 H 147 H Calcium Phosphorus Magnesium ALT Alkaline Phosphatase Total Creatine Kinase CK-MB (CK-2) Rel Index Troponin T Albumin LDL Cholesterol Direct PTH Intact Salicylates Acetaminophen Crossmatch 03/23/19 03/24/19 03/24/19 17:31 01:22 04:20 WBC 12.2 H RBC 3.05 L Hgb 8.3 L Hct 25.9 L MCH 27 L MCHC RDW 18.7 H Lymph % (Auto) [place] % (Auto) Eos % (Auto) Lymph # [place] # Eos # Seg Neutrophils % Seg Neuts % (Manual) Lymphocytes % (Manual) Eosinophils % (Manual) Seg Neutrophils # Lymphocytes # (Manual) Eosinophils # (Manual) PT INR D-Dimer POC ABG pH POC ABG pCO2 POC ABG pO2 ABG pO2 ABG HCO3 ABG Base Excess ABG Hemoglobin Oxyhemoglobin Sodium Potassium Chloride Carbon Dioxide BUN Creatinine Glucose POC Glucose 182 H 113 H Calcium Phosphorus Magnesium ALT Alkaline Phosphatase Total Creatine Kinase CK-MB (CK-2) Rel Index Troponin T Albumin LDL Cholesterol Direct PTH Intact Salicylates Acetaminophen Crossmatch 03/24/19 03/24/19 03/24/19 04:20 11:59 18:14 WBC RBC Hgb Hct MCH MCHC RDW Lymph % (Auto) [place] % (Auto) Eos % (Auto) Lymph # [place] # Eos # Seg Neutrophils % Seg Neuts % (Manual) Lymphocytes % (Manual) Eosinophils % (Manual) Seg Neutrophils # Lymphocytes # (Manual) Eosinophils # (Manual) PT INR D-Dimer POC ABG pH POC ABG pCO2 POC ABG pO2 ABG pO2 ABG HCO3 ABG Base Excess ABG Hemoglobin Oxyhemoglobin Sodium Potassium Chloride 94.8 L Carbon Dioxide 32 H BUN 53 H Creatinine 2.3 H Glucose POC Glucose 163 H 134 H Calcium Phosphorus Magnesium ALT Alkaline Phosphatase Total Creatine Kinase CK-MB (CK-2) Rel Index Troponin T Albumin LDL Cholesterol Direct PTH Intact Salicylates Acetaminophen Crossmatch 03/24/19 03/25/19 03/25/19 23:15 05:52 12:02 WBC RBC Hgb Hct MCH MCHC RDW Lymph % (Auto) [place] % (Auto) Eos % (Auto) Lymph # [place] # Eos # Seg Neutrophils % Seg Neuts % (Manual) Lymphocytes % (Manual) Eosinophils % (Manual) Seg Neutrophils # Lymphocytes # (Manual) Eosinophils # (Manual) PT INR D-Dimer POC ABG pH POC ABG pCO2 POC ABG pO2 ABG pO2 ABG HCO3 ABG Base Excess ABG Hemoglobin Oxyhemoglobin Sodium Potassium Chloride Carbon Dioxide BUN Creatinine Glucose POC Glucose 129 H 123 H 125 H Calcium Phosphorus Magnesium ALT Alkaline Phosphatase Total Creatine Kinase CK-MB (CK-2) Rel Index Troponin T Albumin LDL Cholesterol Direct PTH Intact Salicylates Acetaminophen Crossmatch 03/25/19 03/26/19 03/26/19 17:27 00:30 05:35 WBC RBC 3.01 L Hgb 8.1 L Hct 25.7 L MCH 27 L MCHC RDW 19.2 H Lymph % (Auto) 11.4 L [place] % (Auto) Eos % (Auto) 8.0 H Lymph # 1.0 L [place] # Eos # 0.7 H Seg Neutrophils % 73.9 H Seg Neuts % (Manual) Lymphocytes % (Manual) Eosinophils % (Manual) Seg Neutrophils # Lymphocytes # (Manual) Eosinophils # (Manual) PT INR D-Dimer POC ABG pH POC ABG pCO2 POC ABG pO2 ABG pO2 ABG HCO3 ABG Base Excess ABG Hemoglobin Oxyhemoglobin Sodium Potassium Chloride Carbon Dioxide BUN Creatinine Glucose POC Glucose 130 H 129 H Calcium Phosphorus Magnesium ALT Alkaline Phosphatase Total Creatine Kinase CK-MB (CK-2) Rel Index Troponin T Albumin LDL Cholesterol Direct PTH Intact Salicylates Acetaminophen Crossmatch 03/26/19 03/26/19 03/26/19 05:35 05:45 12:16 WBC RBC Hgb Hct MCH MCHC RDW Lymph % (Auto) [place] % (Auto) Eos % (Auto) Lymph # [place] # Eos # Seg Neutrophils % Seg Neuts % (Manual) Lymphocytes % (Manual) Eosinophils % (Manual) Seg Neutrophils # Lymphocytes # (Manual) Eosinophils # (Manual) PT INR D-Dimer POC ABG pH POC ABG pCO2 POC ABG pO2 ABG pO2 ABG HCO3 ABG Base Excess ABG Hemoglobin Oxyhemoglobin Sodium Potassium Chloride 94.9 L Carbon Dioxide 31 H BUN 44 H Creatinine 2.0 H Glucose POC Glucose 118 H 107 H Calcium Phosphorus Magnesium ALT Alkaline Phosphatase Total Creatine Kinase CK-MB (CK-2) Rel Index Troponin T Albumin LDL Cholesterol Direct PTH Intact Salicylates Acetaminophen Crossmatch 03/26/19 03/27/19 03/27/19 17:56 00:36 05:37 WBC RBC Hgb Hct MCH MCHC RDW Lymph % (Auto) [place] % (Auto) Eos % (Auto) Lymph # [place] # Eos # Seg Neutrophils % Seg Neuts % (Manual) Lymphocytes % (Manual) Eosinophils % (Manual) Seg Neutrophils # Lymphocytes # (Manual) Eosinophils # (Manual) PT INR D-Dimer POC ABG pH POC ABG pCO2 POC ABG pO2 ABG pO2 ABG HCO3 ABG Base Excess ABG Hemoglobin Oxyhemoglobin Sodium Potassium Chloride Carbon Dioxide BUN Creatinine Glucose POC Glucose 107 H 110 H 122 H Calcium Phosphorus Magnesium ALT Alkaline Phosphatase Total Creatine Kinase CK-MB (CK-2) Rel Index Troponin T Albumin LDL Cholesterol Direct PTH Intact Salicylates Acetaminophen Crossmatch 03/27/19 03/27/19 03/28/19 11:22 18:00 05:17 WBC RBC Hgb Hct MCH MCHC RDW Lymph % (Auto) [place] % (Auto) Eos % (Auto) Lymph # [place] # Eos # Seg Neutrophils % Seg Neuts % (Manual) Lymphocytes % (Manual) Eosinophils % (Manual) Seg Neutrophils # Lymphocytes # (Manual) Eosinophils # (Manual) PT INR D-Dimer POC ABG pH POC ABG pCO2 POC ABG pO2 ABG pO2 ABG HCO3 ABG Base Excess ABG Hemoglobin Oxyhemoglobin Sodium Potassium Chloride Carbon Dioxide BUN Creatinine Glucose POC Glucose 120 H 111 H 107 H Calcium Phosphorus Magnesium ALT Alkaline Phosphatase Total Creatine Kinase CK-MB (CK-2) Rel Index Troponin T Albumin LDL Cholesterol Direct PTH Intact Salicylates Acetaminophen Crossmatch 03/28/19 03/28/19 03/29/19 12:27 18:08 05:47 WBC RBC Hgb Hct MCH MCHC RDW Lymph % (Auto) [place] % (Auto) Eos % (Auto) Lymph # [place] # Eos # Seg Neutrophils % Seg Neuts % (Manual) Lymphocytes % (Manual) Eosinophils % (Manual) Seg Neutrophils # Lymphocytes # (Manual) Eosinophils # (Manual) PT INR D-Dimer POC ABG pH POC ABG pCO2 POC ABG pO2 ABG pO2 ABG HCO3 ABG Base Excess ABG Hemoglobin Oxyhemoglobin Sodium Potassium Chloride Carbon Dioxide BUN Creatinine Glucose POC Glucose 114 H 121 H 112 H Calcium Phosphorus Magnesium ALT Alkaline Phosphatase Total Creatine Kinase CK-MB (CK-2) Rel Index Troponin T Albumin LDL Cholesterol Direct PTH Intact Salicylates Acetaminophen Crossmatch 03/29/19 03/29/19 03/30/19 12:14 18:08 00:31 WBC RBC Hgb Hct MCH MCHC RDW Lymph % (Auto) [place] % (Auto) Eos % (Auto) Lymph # [place] # Eos # Seg Neutrophils % Seg Neuts % (Manual) Lymphocytes % (Manual) Eosinophils % (Manual) Seg Neutrophils # Lymphocytes # (Manual) Eosinophils # (Manual) PT INR D-Dimer POC ABG pH POC ABG pCO2 POC ABG pO2 ABG pO2 ABG HCO3 ABG Base Excess ABG Hemoglobin Oxyhemoglobin Sodium Potassium Chloride Carbon Dioxide BUN Creatinine Glucose POC Glucose 117 H 140 H 114 H Calcium Phosphorus Magnesium ALT Alkaline Phosphatase Total Creatine Kinase CK-MB (CK-2) Rel Index Troponin T Albumin LDL Cholesterol Direct PTH Intact Salicylates Acetaminophen Crossmatch 03/30/19 03/30/19 03/30/19 10:13 10:13 23:53 WBC RBC 2.81 L Hgb 7.7 L Hct 24.3 L MCH 27 L MCHC RDW 19.0 H Lymph % (Auto) 12.2 L [place] % (Auto) Eos % (Auto) 7.9 H Lymph # 1.0 L [place] # Eos # 0.6 H Seg Neutrophils % 72.3 H Seg Neuts % (Manual) Lymphocytes % (Manual) Eosinophils % (Manual) Seg Neutrophils # Lymphocytes # (Manual) Eosinophils # (Manual) PT INR D-Dimer POC ABG pH POC ABG pCO2 POC ABG pO2 ABG pO2 ABG HCO3 ABG Base Excess ABG Hemoglobin Oxyhemoglobin Sodium Potassium 5.1 H Chloride 96.5 L Carbon Dioxide BUN 73 H Creatinine 3.9 H D Glucose POC Glucose 114 H Calcium 10.3 H Phosphorus 6.30 H Magnesium 2.70 H ALT Alkaline Phosphatase 185 H Total Creatine Kinase CK-MB (CK-2) Rel Index Troponin T Albumin 2.6 L LDL Cholesterol Direct PTH Intact Salicylates Acetaminophen Crossmatch 03/31/19 03/31/19 03/31/19 05:45 10:26 10:26 WBC RBC 3.01 L Hgb 8.2 L Hct 26.4 L MCH 27 L MCHC 31 L RDW 20.3 H Lymph % (Auto) 13.3 L [place] % (Auto) Eos % (Auto) 7.2 H Lymph # 1.1 L [place] # Eos # 0.6 H Seg Neutrophils % 72.1 H Seg Neuts % (Manual) Lymphocytes % (Manual) Eosinophils % (Manual) Seg Neutrophils # Lymphocytes # (Manual) Eosinophils # (Manual) PT INR D-Dimer POC ABG pH POC ABG pCO2 POC ABG pO2 ABG pO2 ABG HCO3 ABG Base Excess ABG Hemoglobin Oxyhemoglobin Sodium Potassium Chloride 96.9 L Carbon Dioxide 33 H BUN 37 H Creatinine 2.4 H Glucose POC Glucose 108 H Calcium 10.3 H Phosphorus Magnesium ALT Alkaline Phosphatase Total Creatine Kinase CK-MB (CK-2) Rel Index Troponin T Albumin LDL Cholesterol Direct PTH Intact Salicylates Acetaminophen Crossmatch 03/31/19 04/01/19 04/01/19 12:38 05:48 12:06 WBC RBC Hgb Hct MCH MCHC RDW Lymph % (Auto) [place] % (Auto) Eos % (Auto) Lymph # [place] # Eos # Seg Neutrophils % Seg Neuts % (Manual) Lymphocytes % (Manual) Eosinophils % (Manual) Seg Neutrophils # Lymphocytes # (Manual) Eosinophils # (Manual) PT INR D-Dimer POC ABG pH POC ABG pCO2 POC ABG pO2 ABG pO2 ABG HCO3 ABG Base Excess ABG Hemoglobin Oxyhemoglobin Sodium Potassium Chloride Carbon Dioxide BUN Creatinine Glucose POC Glucose 108 H 114 H 111 H Calcium Phosphorus Magnesium ALT Alkaline Phosphatase Total Creatine Kinase CK-MB (CK-2) Rel Index Troponin T Albumin LDL Cholesterol Direct PTH Intact Salicylates Acetaminophen Crossmatch 04/01/19 04/02/19 04/04/19 18:24 00:36 23:55 WBC RBC Hgb Hct MCH MCHC RDW Lymph % (Auto) [place] % (Auto) Eos % (Auto) Lymph # [place] # Eos # Seg Neutrophils % Seg Neuts % (Manual) Lymphocytes % (Manual) Eosinophils % (Manual) Seg Neutrophils # Lymphocytes # (Manual) Eosinophils # (Manual) PT INR D-Dimer POC ABG pH POC ABG pCO2 POC ABG pO2 ABG pO2 ABG HCO3 ABG Base Excess ABG Hemoglobin Oxyhemoglobin Sodium Potassium Chloride Carbon Dioxide BUN Creatinine Glucose POC Glucose 113 H 117 H 109 H Calcium Phosphorus Magnesium ALT Alkaline Phosphatase Total Creatine Kinase CK-MB (CK-2) Rel Index Troponin T Albumin LDL Cholesterol Direct PTH Intact Salicylates Acetaminophen Crossmatch 04/06/19 04/06/19 04/06/19 00:11 06:02 23:30 WBC RBC Hgb Hct MCH MCHC RDW Lymph % (Auto) [place] % (Auto) Eos % (Auto) Lymph # [place] # Eos # Seg Neutrophils % Seg Neuts % (Manual) Lymphocytes % (Manual) Eosinophils % (Manual) Seg Neutrophils # Lymphocytes # (Manual) Eosinophils # (Manual) PT INR D-Dimer POC ABG pH POC ABG pCO2 POC ABG pO2 ABG pO2 ABG HCO3 ABG Base Excess ABG Hemoglobin Oxyhemoglobin Sodium Potassium Chloride Carbon Dioxide BUN Creatinine Glucose POC Glucose 116 H 112 H 112 H Calcium Phosphorus Magnesium ALT Alkaline Phosphatase Total Creatine Kinase CK-MB (CK-2) Rel Index Troponin T Albumin LDL Cholesterol Direct PTH Intact Salicylates Acetaminophen Crossmatch 04/08/19 04/08/19 04/08/19 02:23 06:19 13:01 WBC RBC Hgb Hct MCH MCHC RDW Lymph % (Auto) [place] % (Auto) Eos % (Auto) Lymph # [place] # Eos # Seg Neutrophils % Seg Neuts % (Manual) Lymphocytes % (Manual) Eosinophils % (Manual) Seg Neutrophils # Lymphocytes # (Manual) Eosinophils # (Manual) PT INR D-Dimer POC ABG pH POC ABG pCO2 POC ABG pO2 ABG pO2 ABG HCO3 ABG Base Excess ABG Hemoglobin Oxyhemoglobin Sodium Potassium Chloride Carbon Dioxide BUN Creatinine Glucose POC Glucose 144 H 126 H 118 H Calcium Phosphorus Magnesium ALT Alkaline Phosphatase Total Creatine Kinase CK-MB (CK-2) Rel Index Troponin T Albumin LDL Cholesterol Direct PTH Intact Salicylates Acetaminophen Crossmatch 04/08/19 04/09/19 23:28 05:52 WBC RBC Hgb Hct MCH MCHC RDW Lymph % (Auto) [place] % (Auto) Eos % (Auto) Lymph # [place] # Eos # Seg Neutrophils % Seg Neuts % (Manual) Lymphocytes % (Manual) Eosinophils % (Manual) Seg Neutrophils # Lymphocytes # (Manual) Eosinophils # (Manual) PT INR D-Dimer POC ABG pH POC ABG pCO2 POC ABG pO2 ABG pO2 ABG HCO3 ABG Base Excess ABG Hemoglobin Oxyhemoglobin Sodium Potassium Chloride Carbon Dioxide BUN Creatinine Glucose POC Glucose 119 H 116 H Calcium Phosphorus Magnesium ALT Alkaline Phosphatase Total Creatine Kinase CK-MB (CK-2) Rel Index Troponin T Albumin LDL Cholesterol Direct PTH Intact Salicylates Acetaminophen Crossmatch
[2019-04-09] MEDS: risperiDONE 1 MG TAB PO SCH (12:25)
[2019-04-09] MEDS: SERTRALINE 100 MG TAB PO SCH (12:25)
[2019-04-09] MEDS: FAMOTIDINE 20 MG TAB PO SCH (12:26)
[2019-04-09] MEDS: SODIUM HYPOCHLORITE, DAKIN'S 1/2 STRENGTH (0.25%) 473 ML TOPICAL SOLN TP SCH (12:26)
--- NOTE | 2019-04-09 14:57 | Progress Note ---
Assessment and Plan Assessment and plan: Patient is a 63-year-old -[place] man from [facility] with a plethora of co-morbidities including blindness, CVA, CHF, PPM/ICD, loop recorder since 2012 that is MRI compatible, IDDM type 2, sepsis left foot ulcer, afib, ESRD with complications on HD TTS, hypertension, AOCD and GERD who presented to the ED with hypotensive after intubation in the emergency room. Still intubated, diagnosed with fluid overload, pleural effusion. Patient has had recurrent admission in the hospital for similar reason and was recently discharged from the hospital following treatment of Severe Sepsis due to Necrotizing Unstagable sacral decubitus ulcer with ostemomylitis, expected to complete abx on discharge till 02/16/19. Trach and peg done and LTAC transfer with anticipated longer weaning process an d wound care management. HR control improved with change in BB. Acute respiratory failure on mechanical ventilator >96 hrs - Currently on trach placed on 03/03 Pulm consult appreciated weaning trial VAP BUNDLE ASPIRATION BUNDLE Acute pulmonary edema, fluid overload on CXR repeat xray intermittently Dialysis Dilated CMP Continue diuresis Acute encephalopathy, probably metabolic or toxic Continues on Mechanical ventilator. ESRD on hemodialysis nephrology following Vascular eval. done re: LUE AV graft, see note Bilateral pleural effusions Anticipate improvement with Permanent atrial fibrillation and flutter Not on anticoagulation because of anemia thrombocytopenia Change noted to BB agent to IV. Diabetes mellitus type 2 Fingerstick Q4h NSTEMI type 2 Cardiology following Schizophrenia Legally blind supportive care hypertension Monitor BP Hypokalemia repeat in am Cardiomyiopathy EF 35-40% Pulmonary hypertension Dysphagia s/p PEG tube Sacral decub ulcer Wound Nurse consulted Severe malnutrition /hypoalbuminemia with FTT: 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, training and development director following PEG placed on 01/02/19 decubitus ulcer at his post colostomy wound care consult History of sacral osteomyelitis and LE ulcers Completed Antibiotics Place on contact isolation for ESBL Klebsiella pneumonia on wound culture 01/02/19 Schizophrenia h/o Peripheral neuropathy: Continue gabapentin Pulm HTN Anemia of chronic disease -s/p total of 8 units PRBC, follow cbc- no occult GI bleed noted. -Pt is s/p x1 DDVAP RUL atelectasis, probably mucous plugging DVT prophylaxis Lovenox Full code status poor prognosis The high probability of a clinically significant, sudden or life threatening deterioration of the [pulmonary, neuro, renal] system(s) required my full and direct attention, intervention and personal management. The aggregate critical care time was [35] minutes. This time is in addition to time spent performing reported procedures but includes the following: [x] Data Review and interpretation [x] Patient assessment and monitoring of vital signs [] Documentation [x] Medication orders and management History Interval history: no fevers remains demented no vomiting, no agitation, no seizures Hospitalist Physical - Physical exam Narrative exam: Constitutional: no acute distress, opens eyes, says hello Eyes: non-icteric ENT: oropharynx moist Neck: supple Effort: normal Ascultation: Bilateral: other (coarse BS bilaterally) Percussion: Bilateral: not dull Cardiovascular: regular rate and rhythm (no mrg) Gastrointestinal: normoactive bowel sounds, soft, non-tender, non-distended, other (ostomy in place, brown stool) Extremities: no cyanosis, no edema, pink and warm Neurologic: other (mild weakness LUE, o/w nonfocal), demented Psychiatric: other (unable to assess) SKIN; Left 5th finger, stage 4 pressure ulcer,Left heel, deep tissue injury, Sacrum, stage 4 pressure ulcer POA - Constitutional Vitals: Temp Pulse Resp BP Pulse Ox 98.0 F 80 16 123/62 100 04/09/19 13:25 04/09/19 13:25 04/09/19 13:25 04/09/19 13:25 04/09/19 13:25 General appearance: Present: no acute distress Results - Labs CBC & Chem 7: 03/31/19 10:26 03/31/19 10:26 Labs: Laboratory Last Values WBC 8.3 K/mm3 (4.5-11.0) 03/31/19 10:26 RBC 3.01 M/mm3 (3.65-5.03) L 03/31/19 10:26 Hgb 8.2 gm/dl (11.8-15.2) L 03/31/19 10:26 Hct 26.4 % (35.5-45.6) L 03/31/19 10:26 MCV 88 fl (84-94) 03/31/19 10:26 MCH 27 pg (28-32) L 03/31/19 10:26 MCHC 31 % (32-34) L 03/31/19 10:26 RDW 20.3 % (13.2-15.2) H 03/31/19 10:26 Plt Count 361 K/mm3 (140-440) 03/31/19 10: Lymph % (Auto) 13.3 % (13.4-35.0) L 03/31/19 10: Collier % (Auto) 6.5 % (0.0-7.3) 03/31/19 10: Eos % (Auto) 7.2 % (0.0-4.3) H 03/31/19 10: Baso % (Auto) 0.9 % (0.0-1.8) 03/31/19 10: Lymph # 1.1 K/mm3 (1.2-5.4) L 03/31/19 10: Collier # 0.5 K/mm3 (0.0-0.8) 03/31/19 10: Eos # 0.6 K/mm3 (0.0-0.4) H 03/31/19 10: Baso # 0.1 K/mm3 (0.0-0.1) 03/31/19 10: Add Manual Diff Complete 03/21/19 06:30 Total Counted 100 03/21/19 06:30 Seg Neutrophils % 72.1 % (40.0-70.0) H 03/31/19 10: Seg Neuts % (Manual) 81.0 % (40.0-70.0) H 03/21/19 06:30 0 % 03/21/19 06:30 8.0 % (13.4-35.0) L 03/21/19 06:30 Reactive Lymphs % (Man) 0 % 03/21/19 06:30 1.0 % (0.0-7.3) 03/21/19 06:30 8.0 % (0.0-4.3) H 03/21/19 06:30 1.0 % (0.0-1.8) 03/21/19 06:30 1.0 % 03/21/19 06:30 0 % 03/21/19 06:30 0 % 03/21/19 06:30 0 % 03/21/19 06:30 Nucleated RBC % Not Reportable 03/21/19 06:30 Seg Neutrophils # 6.0 K/mm3 (1.8-7.7) 03/31/19 10:26 Seg Neutrophils # Man 6.7 K/mm3 (1.8-7.7) 03/21/19 06:30 Band Neutrophils # 0.0 K/mm3 03/21/19 06:30 0.7 K/mm3 (1.2-5.4) L 03/21/19 06:30 Abs React Lymphs (Man) 0.0 K/mm3 03/21/19 06:30 0.1 K/mm3 (0.0-0.8) 03/21/19 06:30 0.7 K/mm3 (0.0-0.4) H 03/21/19 06:30 0.1 K/mm3 (0.0-0.1) 03/21/19 06:30 0.1 K/mm3 03/21/19 06:30 0.0 K/mm3 03/21/19 06:30 0.0 K/mm3 03/21/19 06:30 Blast Cells # 0.0 K/mm3 03/21/19 06:30 WBC Morphology Not Reportable 03/21/19 06:30 Hypersegmented Neuts Not Reportable 03/21/19 06:30 Hyposegmented Neuts Not Reportable 03/21/19 06:30 Hypogranular Neuts Not Reportable 03/21/19 06:30 Not Reportable 03/21/19 06:30 Not Reportable 03/21/19 06:30 Not Reportable 03/21/19 06:30 Not Reportable 03/21/19 06:30 Not Reportable 03/21/19 06:30 Not Reportable 03/21/19 06:30 Consistent w auto 03/21/19 06:30 Not Reportable 03/21/19 06:30 Plt Clumps, EDTA Not Reportable 03/21/19 06:30 Not Reportable 03/21/19 06:30 Not Reportable 03/21/19 06:30 Not Reportable 03/21/19 06:30 Plt Morphology Comment Not Reportable 03/21/19 06:30 RBC Morphology Not Reportable 03/21/19 06:30 Dimorphic RBCs Not Reportable 03/21/19 06:30 Not Reportable 03/21/19 06:30 Few 03/21/19 06:30 Few 03/21/19 06:30 Few 03/21/19 06:30 Not Reportable 03/21/19 06:30 Not Reportable 03/21/19 06:30 Not Reportable 03/21/19 06:30 Not Reportable 03/21/19 06:30 Not Reportable 03/21/19 06:30 1+ 03/21/19 06:30 Not Reportable 03/21/19 06:30 Few 03/21/19 06:30 Not Reportable 03/21/19 06:30 Not Reportable 03/21/19 06:30 Not Reportable 03/21/19 06:30 Not Reportable 03/21/19 06:30 Not Reportable 03/21/19 06:30 Not Reportable 03/21/19 06:30 Not Reportable 03/21/19 06:30 Acanthocytes (Spur) Not Reportable 03/21/19 06:30 Rouleaux Not Reportable 03/21/19 06:30 Not Reportable 03/21/19 06:30 Not Reportable 03/21/19 06:30 Not Reportable 03/21/19 06:30 Not Reportable 03/21/19 06:30 Hem Pathologist Commnt No 03/21/19 06:30 PT 16.3 Sec. (12.2-14.9) H 03/01/19 09:39 INR 1.35 (0.87-1.13) H 03/01/19 09:39 APTT 33.7 Sec. (24.2-36.6) 02/21/19 18:30 2987.82 ng/mlDDU (0-234) H 02/22/19 05:54 POC ABG pH 7.510 (7.35-7.45) H 03/18/19 06:38 ABG pH 7.424 pH Units (7.350-7.450) 03/19/19 04:23 POC ABG pCO2 38.9 (35-45) 03/18/19 06:38 ABG pCO2 48.0 mm Hg 03/19/19 04:23 POC ABG pO2 164 (80-105) H 03/18/19 06:38 ABG pO2 78.3 mm Hg (80.0-90.0) L 03/19/19 04:23 POC ABG HCO3 31.0 (22-26 mml/L) 03/18/19 06:38 ABG HCO3 30.7 mmol/L (20.0-26.0) H 03/19/19 04:23 POC ABG Total CO2 32 (23-27mmol/L) 03/18/19 06:38 POC ABG O2 Sat 100 03/18/19 06:38 ABG O2 Saturation 97.0 % (95.0-99.0) 03/19/19 04:23 ABG O2 Content 7.9 (0.0-44) 03/19/19 04:23 POC ABG Base Excess 8 ((-2) - (+3)mmol/L) 03/18/19 06:38 ABG Base Excess 5.8 mmol/L (-2.0-3.0) H 03/19/19 04:23 ABG Hemoglobin 5.8 gm/dl (14.0-18.0) L 03/19/19 04:23 ABG Carboxyhemoglobin 2.0 % (0.0-5.0) 03/19/19 04:23 ABG Methemoglobin 0.4 % (0.0-1.5) 03/19/19 04:23 94.6 % (95.0-99.0) L 03/19/19 04:23 35 % 03/19/19 04:23 Sodium 143 mmol/L (137-145) 03/31/19 10:26 Potassium 4.1 mmol/L (3.6-5.0) 03/31/19 10:26 Chloride 96.9 mmol/L (98-107) L 03/31/19 10:26 Carbon Dioxide 33 mmol/L (22-30) H 03/31/19 10:26 17 mmol/L 03/31/19 10:26 BUN 37 mg/dL (9-20) H 03/31/19 10:26 2.4 mg/dL (0.8-1.5) H 03/31/19 10:26 Estimated GFR 33 ml/min 03/31/19 10:26 15 % 03/31/19 10:26 Glucose 86 mg/dL (75-100) 03/31/19 10:26 POC Glucose 100 (70-105) 04/09/19 12:12 Lactic Acid 1.00 mmol/L (0.7-2.0) 02/21/19 20:58 Calcium 10.3 mg/dL (8.4-10.2) H 03/31/19 10:26 Phosphorus 4.30 mg/dL (2.5-4.5) D 03/31/19 10:26 Magnesium 2.70 mg/dL (1.7-2.3) H 03/30/19 10:13 0.20 mg/dL (0.1-1.2) 03/30/19 10:13 AST 16 units/L (5-40) 03/30/19 10:13 ALT 11 units/L (7-56) 03/30/19 10:13 185 units/L (35-129) H 03/30/19 10:13 28.0 umol/L (25-60) 02/21/19 20:04 64 units/L (55-170) 02/22/19 03:42 CK-MB (CK-2) 3.7 ng/mL (0.0-4.0) 02/22/19 03:42 CK-MB (CK-2) Rel Index 5.7 (0-4) H 02/22/19 03:42 0.193 ng/mL (0.00-0.029) H* 02/22/19 03:42 6.9 g/dL (6.3-8.2) 03/30/19 10:13 2.6 g/dL (3.9-5) L 03/30/19 10:13 0.6 % 03/30/19 10:13 Triglycerides 51 mg/dL (2-149) 02/21/19 18:30 Cholesterol 82 mg/dL (50-199) 02/21/19 18:30 36 mg/dL (50-130) L 02/21/19 18:30 40 mg/dL (40-59) 02/21/19 18:30 2.05 % 02/21/19 18:30 TSH 2.760 mlU/mL (0.270-4.200) 02/21/19 20:04 PTH Intact 267.6 pg/mL (15-65) H 03/02/19 05:15 Salicylates < 0.3 mg/dL (2.8-20.0) L 02/21/19 20:04 Acetaminophen < 5.0 ug/mL (10.0-30.0) L 02/21/19 20:04 Hepatitis A IgM Ab Non-reactive (NonReactive) 03/31/19 22:56 Hep Bs Antigen Non-reactive (Negative) 03/31/19 22:56 Hep B Core IgM Ab Non-reactive (NonReactive) 03/31/19 22:56 Non-reactive (NonReactive) 03/31/19 22:56 Blood Type O POSITIVE 03/22/19 08:48 Antibody Screen Negative 03/22/19 08:48 Crossmatch See Detail 03/22/19 08:48 Active Medications - Current Medications Current Medications: Generic Name Dose Route Start Last Admin Trade Name Freq PRN Reason Stop Dose Admin Albuterol/Ipratropium 1 ampul 02/24/19 20:00 04/09/19 13:40 Duoneb *Not For Prn Use* IH 1 ampul TIDRT SANCHEZ Administration Lipase/Protease/Amylase 1 each 03/05/19 14:04 04/02/19 21:34 Pancreaze 10,500 Unit FEEDTUBE 1 each PRN PRN Administration For Clogged Feeding Tube Epoetin Solitario 20,000 unit 03/24/19 11:17 04/08/19 10:56 Procrit IV 20,000 unit UMA PRN Administration hemodialysis Famotidine 20 mg 02/23/19 10:00 04/09/19 12:26 Pepcid PO 20 mg DAILY SANCHEZ Administration Hydrophilic Ointment 1 applic 02/21/19 18:24 03/05/19 08:16 Vaseline Lip Therapy TP 1 applic Q2HR PRN Administration Dry Lips Sodium Chloride 100 mls @ 999 mls/hr 02/26/19 09:00 Nacl 0.9% IV UMA PRN Hypotension Insulin Human Regular 0 units 02/26/19 12:00 04/09/19 12:27 Humulin R SUB-Q Not Given Q6HR [facility] Protocol Metoprolol Tartrate 2.5 mg 02/28/19 12:06 03/15/19 05:15 Lopressor IV 2.5 mg Q4HR PRN Administration Tachycardia Multi-Ingred Cream/Lotion/Oil/Oint 1 applic 02/21/19 18:24 03/29/19 21:40 Artificial Tears Ophth Oint OU 1 applic Q4HR PRN Administration Dry Eye(s) Risperidone 1 mg 02/25/19 13:00 04/09/19 12:25 Risperdal PO 1 mg DAILY SANCHEZ Administration Scopolamine 1 each 03/13/19 04:00 04/09/19 04:20 Transderm-Scop TD 1 each Q3D SANCHEZ Administration Sertraline HCl 100 mg 02/25/19 13:00 04/09/19 12:25 Zoloft PO 100 mg DAILY SANCHEZ Administration Sodium Hypochlorite 1 applic 04/01/19 13:00 04/09/19 12:26 Dakin's Half Strength TP 1 applicatio BID SANCHEZ Administration Nutrition/Malnutrition Assess - Dietary Evaluation Nutrition/Malnutrition Findings: Nutrition Notes Start: 02/22/19 12:51 Freq: Status: Active Protocol: Document 04/03/19 12:20 RS (Rec: 04/03/19 12:27 RS [id number]) Co-Sign 04/03/19 12:20 LP Nutrition Notes Initial or Follow up Reassessment Current Diagnosis Diabetes,Hypertension Other Pertinent Diagnosis Sacral PU, ESRD on HD (T/Thurs /Sat), Schizophrenia,Blind in L eye,S/P trach Current Diet Nepro with Carbsteady 1.8 at 50 ml/hr Labs/Tests Reviewed Pertinent Medications Reviewed Height 5 ft 10 in Weight 74.7 kg Stamps Body Weight (kg) 75.45 BMI 23.6 Subjective/Other Information Nepro running at 50 ml/hr at time of visit. Pt is tolerating TF. Percent of energy/protein needs met: 96%/100% Burn Absent Trauma Absent #2 Nutrition Diagnosis Increased nutrient needs ( specify in comment below) Diagnosis Progress(for reassessment Continues documentation) #1 Nutrition Diagnosis Inadequate oral intake Diagnosis Progress(for reassessment Continues documentation) Is patient on ventilator? No Is Patient Ambulatory and/or Out of Bed No REE-([facility]-confined to bed) 1857.144 Kcal/Kg value to use for calculation 30 Approximate Energy Requirements Using 2241 kcal/Kg Calculation Used for Recommendations Kcal/kg Additional Notes Protein Needs: 90-112g (1.2-1. 5g/kg) Fluid Needs: 1-1.5 L/day Nutrition Intervention Change Diet Order: Continue TF Nutrition Support: Nepro with Carbsteady 1.8 at 50 ml/hr Flush 200 ml q4hr Kcal 2,160 Protein (gm) 97 Fluid (mL) 872 Add Supplement/Snack (indicate name/kcal Abhilash BID /protein ) Provides kCal: 190 Provides Protein (gm) 5 Goal #1 TF tolerance Goal #2 Continue to meet at least 80% of calorie and protein needs via TF Anticipated Discharge Needs: TF Follow-Up By: 04/10/19 Additional Comments F/U for new TF rate/tolerance
--- NOTE | 2019-04-09 20:44 | Progress Note ---
Assessment and Plan Assessment: * End stage renal disease (outpatient TTS schedule) * Acute hypoxic respiratory failure s/p trach * KEON pneumonia --Sputum cx: MDR Acinetobacter * Cardiomyopathy - EF 35-40% * Atrial fibrillation * History of CVA * Anemia secondary to ESRD * Secondary hyperparathyroidism Plan * Continue HD MWF via WILFRED AVG * UF as tolerated * Nutrition per primary team * Dose medications for renal function * Epogen 20k TIW Subjective Date of service: 04/09/19 Principal diagnosis: Respiratory failure, acute on chronic systolic HF, ESRD Interval history: No acute events overnight. Objective - Vital Signs Vital signs: Vital Signs - 12hr 04/09/19 04/09/19 04/09/19 09:30 10:00 13:09 Temperature Pulse Rate 79 79 Pulse Rate [ Anterior Bilateral Throughout] Pulse Rate [ 80 From Monitor] Respiratory 18 Rate Respiratory Rate [Anterior Bilateral Throughout] Blood Pressure O2 Sat by Pulse 100 98 Oximetry 04/09/19 04/09/19 04/09/19 13:25 16:22 19:54 Temperature 98.0 F 98.7 F Pulse Rate 80 83 Pulse Rate [ 89 Anterior Bilateral Throughout] Pulse Rate [ From Monitor] Respiratory 16 16 Rate Respiratory 22 Rate [Anterior Bilateral Throughout] Blood Pressure 123/62 129/63 O2 Sat by Pulse 100 100 Oximetry 04/09/19 19:56 Temperature Pulse Rate Pulse Rate [ Anterior Bilateral Throughout] Pulse Rate [ From Monitor] Respiratory Rate Respiratory Rate [Anterior Bilateral Throughout] Blood Pressure O2 Sat by Pulse 99 Oximetry - General Appearance General appearance: chronically ill EENT: ATNC Neck: other (trach) Respiratory: Present: Clear to Ascultation, Normal Exam Cardiology: regular, S1S2 Gastrointestinal: normal, no tenderness, no distended Psychiatric: cooperative - Lab 03/31/19 10:26 03/31/19 10:26 Most recent lab results ABG pH 7.424 pH Units (7.350-7.450) 03/19/19 04:23 ABG pCO2 48.0 mm Hg 03/19/19 04:23 ABG pO2 78.3 mm Hg (80.0-90.0) L 03/19/19 04:23 ABG HCO3 30.7 mmol/L (20.0-26.0) H 03/19/19 04:23 ABG O2 Saturation 97.0 % (95.0-99.0) 03/19/19 04:23 Calcium 10.3 mg/dL (8.4-10.2) H 03/31/19 10:26 Phosphorus 4.30 mg/dL (2.5-4.5) D 03/31/19 10:26 Magnesium 2.70 mg/dL (1.7-2.3) H 03/30/19 10:13 Medications & Allergies - Medications Allergies/Adverse Reactions: Allergies haloperidol [From Haldol] Adverse Reaction (Verified 03/13/18 12:10) Unknown haloperidol lactate [From Haldol] Adverse Reaction (Verified 03/13/18 12:10) Unknown Home Medications: Home Medications Medication Instructions Recorded Confirmed Last Taken Type risperiDONE [RisperDAL] 1 mg PO QAM 03/13/18 02/21/19 Unknown History Sertraline [Zoloft] 100 mg PO QDAY 08/26/18 02/21/19 Unknown History Polyethylene Glycol 3350 [Miralax 17 gm PO QDAY #30 packet 11/05/18 02/21/19 Unknown Rx 3350] Aspirin EC [Halfprin EC] 81 mg PO DAILY #30 11/19/18 02/21/19 Unknown Rx Docusate Sodium [Colace CAP] 100 mg PO BID #60 11/19/18 02/21/19 Unknown Rx Folic Acid [Folvite] 1 mg PO DAILY #30 tab 11/19/18 02/21/19 Unknown Rx Famotidine [Pepcid] 20 mg PO DAILY tablet 12/08/18 02/21/19 Unknown Rx Gabapentin [Neurontin] 100 mg PO QHS capsule 12/08/18 02/21/19 Unknown Rx Metoprolol [Lopressor TAB] 50 mg PO BID 30 Days tablet 12/08/18 02/21/19 Unknown Rx Sevelamer Carbonate [Renvela] 800 mg PO TIDWM tablet 12/08/18 02/21/19 Unknown Rx hydrALAZINE [Apresoline TAB] 100 mg PO Q8HR #120 tablet 12/08/18 02/21/19 Unknown Rx Acetaminophen [Acetaminophen TAB] 650 mg PO Q12H PRN 12/15/18 02/21/19 Unknown History Glucagon,Human Recombinant 1 mg IJ Q15MIN PRN 12/15/18 02/21/19 Unknown History [Glucagon Emergency Kit] Insulin Aspart [NovoLOG 100 See Protocol SQ QWEEK 12/15/18 02/21/19 Unknown History UNITS/ML VIAL] Active Medications: Generic Name Dose Route Start Last Admin Trade Name Freq PRN Reason Stop Dose Admin Albuterol/Ipratropium 1 ampul 02/24/19 20:00 04/09/19 19:53 Duoneb *Not For Prn Use* IH 1 ampul TIDRT SANCHEZ Administration Lipase/Protease/Amylase 1 each 03/05/19 14:04 04/02/19 21:34 Pancreaze 10,500 Unit FEEDTUBE 1 each PRN PRN Administration For Clogged Feeding Tube Epoetin Solitario 20,000 unit 03/24/19 11:17 04/08/19 10:56 Procrit IV 20,000 unit UMA PRN Administration hemodialysis Famotidine 20 mg 02/23/19 10:00 04/09/19 12:26 Pepcid PO 20 mg DAILY SANCHEZ Administration Hydrophilic Ointment 1 applic 02/21/19 18:24 03/05/19 08:16 Vaseline Lip Therapy TP 1 applic Q2HR PRN Administration Dry Lips Sodium Chloride 100 mls @ 999 mls/hr 02/26/19 09:00 Nacl 0.9% IV UMA PRN Hypotension Insulin Human Regular 0 units 02/26/19 12:00 04/09/19 12:27 Humulin R SUB-Q Not Given Q6HR [facility] Protocol Metoprolol Tartrate 2.5 mg 02/28/19 12:06 03/15/19 05:15 Lopressor IV 2.5 mg Q4HR PRN Administration Tachycardia Multi-Ingred Cream/Lotion/Oil/Oint 1 applic 02/21/19 18:24 03/29/19 21:40 Artificial Tears Ophth Oint OU 1 applic Q4HR PRN Administration Dry Eye(s) Risperidone 1 mg 02/25/19 13:00 04/09/19 12:25 Risperdal PO 1 mg DAILY SANCHEZ Administration Scopolamine 1 each 03/13/19 04:00 04/09/19 04:20 Transderm-Scop TD 1 each Q3D SANCHEZ Administration Sertraline HCl 100 mg 02/25/19 13:00 04/09/19 12:25 Zoloft PO 100 mg DAILY SANCHEZ Administration Sodium Hypochlorite 1 applic 04/01/19 13:00 04/09/19 12:26 Estephania's Half Strength TP 1 applicatio BID SANCHEZ Administration
[2019-04-10] MEDS: INSULIN REGULAR, HUMAN 100 UNITS/1 ML SUB-Q SCH ×3 (07:34→19:05)
[2019-04-10] MEDS: IPRATROPIUM/ALBUTEROL SULFATE 3 ML AMPUL.NEB IH SCH ×3 (07:39→20:13)
[2019-04-10] MEDS: SODIUM HYPOCHLORITE, DAKIN'S 1/2 STRENGTH (0.25%) 473 ML TOPICAL SOLN TP SCH (10:39)
--- NOTE | 2019-04-10 10:45 | Progress Note ---
Assessment and Plan 63 y/o male with multiple medical issues admitted with altered mental status, acute respiratory failure requiring mechanical ventilation No new recommendations for today. Please see below. 1. Finished therapy for Acinetobacter. 2. Continue T-piece 3. HD per renal 4. Awaiting placement. Subjective Date of service: 04/10/19 Principal diagnosis: Respiratory failure, acute on chronic systolic HF, ESRD Interval history: no acute events. Pulm status is stable. Objective Vital Signs - 12hr 04/09/19 04/10/19 04/10/19 23:47 00:00 03:53 Temperature 98.6 F 98.3 F Pulse Rate 84 75 Pulse Rate [ Anterior Bilateral Throughout] Respiratory 28 H 20 Rate Respiratory Rate [Anterior Bilateral Throughout] Blood Pressure 131/62 117/52 O2 Sat by Pulse 100 100 Oximetry O2 Sat by Pulse 100 Oximetry [ Assessment] 04/10/19 04/10/19 04/10/19 07:39 07:40 07:41 Temperature Pulse Rate Pulse Rate [ 89 Anterior Bilateral Throughout] Respiratory Rate Respiratory 18 Rate [Anterior Bilateral Throughout] Blood Pressure O2 Sat by Pulse 94 Oximetry O2 Sat by Pulse 95 Oximetry [ Assessment] 04/10/19 04/10/19 04/10/19 08:03 09:40 10:00 Temperature 98.8 F Pulse Rate 78 71 Pulse Rate [ Anterior Bilateral Throughout] Respiratory 18 Rate Respiratory Rate [Anterior Bilateral Throughout] Blood Pressure 127/58 O2 Sat by Pulse 96 98 Oximetry O2 Sat by Pulse Oximetry [ Assessment] Constitutional: no acute distress, alert Eyes: non-icteric ENT: oropharynx moist Neck: supple Effort: normal Ascultation: Bilateral: diminished breath sounds, other (coarse BS bilaterally) Percussion: Bilateral: not dull Cardiovascular: other (tachy, RR; no mrg) Gastrointestinal: normoactive bowel sounds, soft, non-tender, non-distended, oth er (ostomy in place, brown stool) Extremities: no cyanosis, no edema, pink and warm Neurologic: other (mild weakness LUE, o/w nonfocal) Psychiatric: other (unable to assess) CBC and BMP: 03/31/19 10:26 03/31/19 10:26 ABG, PT/INR, D-dimer: ABG POC ABG pH 7.510 (7.35-7.45) H 03/18/19 06:38 ABG pH 7.424 pH Units (7.350-7.450) 03/19/19 04:23 POC ABG pCO2 38.9 (35-45) 03/18/19 06:38 ABG pCO2 48.0 mm Hg 03/19/19 04:23 POC ABG pO2 164 (80-105) H 03/18/19 06:38 ABG pO2 78.3 mm Hg (80.0-90.0) L 03/19/19 04:23 POC ABG HCO3 31.0 (22-26 mml/L) 03/18/19 06:38 POC ABG Total CO2 32 (23-27mmol/L) 03/18/19 06:38 POC ABG O2 Sat 100 03/18/19 06:38 ABG O2 Saturation 97.0 % (95.0-99.0) 03/19/19 04:23 PT/INR, D-dimer PT 16.3 Sec. (12.2-14.9) H 03/01/19 09:39 INR 1.35 (0.87-1.13) H 03/01/19 09:39 2987.82 ng/mlDDU (0-234) H 02/22/19 05:54 Abnormal lab findings: Abnormal Labs 02/21/19 02/21/19 02/21/19 18:30 18:30 18:30 WBC RBC 3.26 L Hgb 8.8 L Hct 29.0 L MCH 27 L MCHC 30 L RDW 19.1 H Lymph % (Auto) 6.1 L Saline % (Auto) Eos % (Auto) Lymph # 0.4 L Saline # Eos # Seg Neutrophils % 86.2 H Seg Neuts % (Manual) Lymphocytes % (Manual) Eosinophils % (Manual) Seg Neutrophils # Lymphocytes # (Manual) Eosinophils # (Manual) PT INR D-Dimer POC ABG pH POC ABG pCO2 POC ABG pO2 ABG pO2 ABG HCO3 ABG Base Excess ABG Hemoglobin Oxyhemoglobin Sodium 133 L Potassium 3.3 L Chloride 93.1 L Carbon Dioxide 33 H BUN Creatinine Glucose 161 H POC Glucose Calcium Phosphorus Magnesium ALT Alkaline Phosphatase 136 H Total Creatine Kinase 37 L CK-MB (CK-2) Rel Index Troponin T 0.192 H* Albumin 2.4 L LDL Cholesterol Direct 36 L PTH Intact Salicylates Acetaminophen Crossmatch 02/21/19 02/21/19 02/21/19 18:42 20:04 20:04 WBC RBC Hgb Hct MCH MCHC RDW Lymph % (Auto) Saline % (Auto) Eos % (Auto) Lymph # Saline # Eos # Seg Neutrophils % Seg Neuts % (Manual) Lymphocytes % (Manual) Eosinophils % (Manual) Seg Neutrophils # Lymphocytes # (Manual) Eosinophils # (Manual) PT INR D-Dimer POC ABG pH POC ABG pCO2 56.7 H POC ABG pO2 291 H ABG pO2 ABG HCO3 ABG Base Excess ABG Hemoglobin Oxyhemoglobin Sodium Potassium Chloride Carbon Dioxide BUN Creatinine Glucose POC Glucose Calcium Phosphorus Magnesium ALT Alkaline Phosphatase Total Creatine Kinase CK-MB (CK-2) Rel Index Troponin T Albumin LDL Cholesterol Direct PTH Intact Salicylates < 0.3 L Acetaminophen < 5.0 L Crossmatch 02/21/19 02/22/19 02/22/19 22:35 03:42 03:42 WBC RBC 3.20 L Hgb 8.8 L Hct 27.6 L MCH MCHC RDW 18.9 H Lymph % (Auto) 7.4 L Saline % (Auto) Eos % (Auto) Lymph # 0.7 L Saline # Eos # Seg Neutrophils % 84.7 H Seg Neuts % (Manual) Lymphocytes % (Manual) Eosinophils % (Manual) Seg Neutrophils # Lymphocytes # (Manual) Eosinophils # (Manual) PT INR D-Dimer POC ABG pH POC ABG pCO2 POC ABG pO2 ABG pO2 ABG HCO3 ABG Base Excess ABG Hemoglobin Oxyhemoglobin Sodium 134 L Potassium 2.6 L* D Chloride Carbon Dioxide BUN Creatinine Glucose POC Glucose Calcium Phosphorus Magnesium ALT Alkaline Phosphatase Total Creatine Kinase CK-MB (CK-2) Rel Index 5.2 H Troponin T 0.202 H* Albumin LDL Cholesterol Direct PTH Intact Salicylates Acetaminophen Crossmatch 02/22/19 02/22/19 02/22/19 03:42 05:54 09:04 WBC RBC Hgb Hct MCH MCHC RDW Lymph % (Auto) Saline % (Auto) Eos % (Auto) Lymph # Saline # Eos # Seg Neutrophils % Seg Neuts % (Manual) Lymphocytes % (Manual) Eosinophils % (Manual) Seg Neutrophils # Lymphocytes # (Manual) Eosinophils # (Manual) PT INR D-Dimer 2987.82 H POC ABG pH 7.451 H POC ABG pCO2 POC ABG pO2 ABG pO2 ABG HCO3 ABG Base Excess ABG Hemoglobin Oxyhemoglobin Sodium Potassium Chloride Carbon Dioxide BUN Creatinine Glucose POC Glucose Calcium Phosphorus Magnesium ALT Alkaline Phosphatase Total Creatine Kinase CK-MB (CK-2) Rel Index 5.7 H Troponin T 0.193 H* Albumin LDL Cholesterol Direct PTH Intact Salicylates Acetaminophen Crossmatch 02/22/19 02/22/19 02/23/19 10:36 23:56 00:52 WBC RBC Hgb Hct MCH MCHC RDW Lymph % (Auto) Saline % (Auto) Eos % (Auto) Lymph # Saline # Eos # Seg Neutrophils % Seg Neuts % (Manual) Lymphocytes % (Manual) Eosinophils % (Manual) Seg Neutrophils # Lymphocytes # (Manual) Eosinophils # (Manual) PT INR D-Dimer POC ABG pH POC ABG pCO2 POC ABG pO2 ABG pO2 ABG HCO3 ABG Base Excess ABG Hemoglobin Oxyhemoglobin Sodium Potassium 3.1 L Chloride Carbon Dioxide BUN Creatinine Glucose POC Glucose 58 L 111 H Calcium Phosphorus Magnesium ALT Alkaline Phosphatase Total Creatine Kinase CK-MB (CK-2) Rel Index Troponin T Albumin LDL Cholesterol Direct PTH Intact Salicylates Acetaminophen Crossmatch 02/23/19 02/23/19 02/23/19 05:00 06:35 14:26 WBC RBC Hgb Hct MCH MCHC RDW Lymph % (Auto) Saline % (Auto) Eos % (Auto) Lymph # Saline # Eos # Seg Neutrophils % Seg Neuts % (Manual) Lymphocytes % (Manual) Eosinophils % (Manual) Seg Neutrophils # Lymphocytes # (Manual) Eosinophils # (Manual) PT INR D-Dimer POC ABG pH POC ABG pCO2 POC ABG pO2 ABG pO2 ABG HCO3 ABG Base Excess ABG Hemoglobin Oxyhemoglobin Sodium 135 L Potassium 3.1 L Chloride Carbon Dioxide BUN 21 H Creatinine 2.0 H Glucose 57 L POC Glucose 64 L 62 L Calcium Phosphorus Magnesium ALT Alkaline Phosphatase Total Creatine Kinase CK-MB (CK-2) Rel Index Troponin T Albumin LDL Cholesterol Direct PTH Intact Salicylates Acetaminophen Crossmatch 02/24/19 02/24/19 02/24/19 02:11 04:12 04:55 WBC RBC 2.84 L Hgb 7.8 L Hct 24.5 L MCH MCHC RDW 19.5 H Lymph % (Auto) Saline % (Auto) Eos % (Auto) Lymph # Saline # Eos # Seg Neutrophils % Seg Neuts % (Manual) Lymphocytes % (Manual) Eosinophils % (Manual) Seg Neutrophils # Lymphocytes # (Manual) Eosinophils # (Manual) PT INR D-Dimer POC ABG pH 7.511 H POC ABG pCO2 33.9 L POC ABG pO2 62 L ABG pO2 ABG HCO3 ABG Base Excess ABG Hemoglobin Oxyhemoglobin Sodium Potassium Chloride Carbon Dioxide BUN Creatinine Glucose POC Glucose 69 L Calcium Phosphorus Magnesium ALT Alkaline Phosphatase Total Creatine Kinase CK-MB (CK-2) Rel Index Troponin T Albumin LDL Cholesterol Direct PTH Intact Salicylates Acetaminophen Crossmatch 02/24/19 02/24/19 02/25/19 04:55 05:41 04:45 WBC RBC Hgb Hct MCH MCHC RDW Lymph % (Auto) Saline % (Auto) Eos % (Auto) Lymph # Saline # Eos # Seg Neutrophils % Seg Neuts % (Manual) Lymphocytes % (Manual) Eosinophils % (Manual) Seg Neutrophils # Lymphocytes # (Manual) Eosinophils # (Manual) PT INR D-Dimer POC ABG pH 7.466 H POC ABG pCO2 POC ABG pO2 75 L ABG pO2 ABG HCO3 ABG Base Excess ABG Hemoglobin Oxyhemoglobin Sodium Potassium Chloride Carbon Dioxide BUN Creatinine 1.8 H Glucose 73 L POC Glucose 127 H Calcium Phosphorus Magnesium ALT Alkaline Phosphatase Total Creatine Kinase CK-MB (CK-2) Rel Index Troponin T Albumin LDL Cholesterol Direct PTH Intact Salicylates Acetaminophen Crossmatch 02/25/19 02/25/19 02/26/19 16:34 21:33 03:45 WBC RBC 2.96 L Hgb 8.0 L Hct 25.8 L MCH 27 L MCHC 31 L RDW 20.0 H Lymph % (Auto) Saline % (Auto) Eos % (Auto) Lymph # Saline # Eos # Seg Neutrophils % Seg Neuts % (Manual) Lymphocytes % (Manual) Eosinophils % (Manual) Seg Neutrophils # Lymphocytes # (Manual) Eosinophils # (Manual) PT INR D-Dimer POC ABG pH POC ABG pCO2 POC ABG pO2 ABG pO2 ABG HCO3 ABG Base Excess ABG Hemoglobin Oxyhemoglobin Sodium Potassium Chloride Carbon Dioxide BUN Creatinine Glucose POC Glucose 141 H 106 H Calcium Phosphorus Magnesium ALT Alkaline Phosphatase Total Creatine Kinase CK-MB (CK-2) Rel Index Troponin T Albumin LDL Cholesterol Direct PTH Intact Salicylates Acetaminophen Crossmatch 02/26/19 02/26/1919 03:45 04:13 07:53 WBC RBC Hgb Hct MCH MCHC RDW Lymph % (Auto) Saline % (Auto) Eos % (Auto) Lymph # Saline # Eos # Seg Neutrophils % Seg Neuts % (Manual) Lymphocytes % (Manual) Eosinophils % (Manual) Seg Neutrophils # Lymphocytes # (Manual) Eosinophils # (Manual) PT INR D-Dimer POC ABG pH 7.470 H POC ABG pCO2 POC ABG pO2 ABG pO2 ABG HCO3 ABG Base Excess ABG Hemoglobin Oxyhemoglobin Sodium Potassium Chloride Carbon Dioxide BUN Creatinine 1.8 H Glucose POC Glucose 110 H Calcium Phosphorus Magnesium ALT Alkaline Phosphatase Total Creatine Kinase CK-MB (CK-2) Rel Index Troponin T Albumin LDL Cholesterol Direct PTH Intact Salicylates Acetaminophen Crossmatch 02/26/19 02/26/19 02/27/19 11:56 17:43 00:12 WBC RBC Hgb Hct MCH MCHC RDW Lymph % (Auto) Saline % (Auto) Eos % (Auto) Lymph # Saline # Eos # Seg Neutrophils % Seg Neuts % (Manual) Lymphocytes % (Manual) Eosinophils % (Manual) Seg Neutrophils # Lymphocytes # (Manual) Eosinophils # (Manual) PT INR D-Dimer POC ABG pH POC ABG pCO2 POC ABG pO2 ABG pO2 ABG HCO3 ABG Base Excess ABG Hemoglobin Oxyhemoglobin Sodium Potassium Chloride Carbon Dioxide BUN Creatinine Glucose POC Glucose 112 H 127 H 127 H Calcium Phosphorus Magnesium ALT Alkaline Phosphatase Total Creatine Kinase CK-MB (CK-2) Rel Index Troponin T Albumin LDL Cholesterol Direct PTH Intact Salicylates Acetaminophen Crossmatch 02/27/19 02/27/19 02/27/19 04:35 13:15 18:02 WBC RBC Hgb Hct MCH MCHC RDW Lymph % (Auto) Saline % (Auto) Eos % (Auto) Lymph # Saline # Eos # Seg Neutrophils % Seg Neuts % (Manual) Lymphocytes % (Manual) Eosinophils % (Manual) Seg Neutrophils # Lymphocytes # (Manual) Eosinophils # (Manual) PT INR D-Dimer POC ABG pH 7.483 H POC ABG pCO2 POC ABG pO2 61 L ABG pO2 ABG HCO3 ABG Base Excess ABG Hemoglobin Oxyhemoglobin Sodium Potassium Chloride Carbon Dioxide BUN Creatinine Glucose POC Glucose 143 H 106 H Calcium Phosphorus Magnesium ALT Alkaline Phosphatase Total Creatine Kinase CK-MB (CK-2) Rel Index Troponin T Albumin LDL Cholesterol Direct PTH Intact Salicylates Acetaminophen Crossmatch 02/28/19 02/28/19 02/28/19 05:50 11:59 17:52 WBC RBC Hgb Hct MCH MCHC RDW Lymph % (Auto) Saline % (Auto) Eos % (Auto) Lymph # Saline # Eos # Seg Neutrophils % Seg Neuts % (Manual) Lymphocytes % (Manual) Eosinophils % (Manual) Seg Neutrophils # Lymphocytes # (Manual) Eosinophils # (Manual) PT INR D-Dimer POC ABG pH POC ABG pCO2 POC ABG pO2 ABG pO2 ABG HCO3 ABG Base Excess ABG Hemoglobin Oxyhemoglobin Sodium Potassium Chloride Carbon Dioxide BUN Creatinine Glucose POC Glucose 134 H 128 H 142 H Calcium Phosphorus Magnesium ALT Alkaline Phosphatase Total Creatine Kinase CK-MB (CK-2) Rel Index Troponin T Albumin LDL Cholesterol Direct PTH Intact Salicylates Acetaminophen Crossmatch 02/28/19 03/01/19 03/01/19 23:13 05:40 09:39 WBC RBC Hgb Hct MCH MCHC RDW Lymph % (Auto) Saline % (Auto) Eos % (Auto) Lymph # Saline # Eos # Seg Neutrophils % Seg Neuts % (Manual) Lymphocytes % (Manual) Eosinophils % (Manual) Seg Neutrophils # Lymphocytes # (Manual) Eosinophils # (Manual) PT 16.3 H INR 1.35 H D-Dimer POC ABG pH POC ABG pCO2 POC ABG pO2 ABG pO2 ABG HCO3 ABG Base Excess ABG Hemoglobin Oxyhemoglobin Sodium Potassium Chloride Carbon Dioxide BUN Creatinine Glucose POC Glucose 112 H 111 H Calcium Phosphorus Magnesium ALT Alkaline Phosphatase Total Creatine Kinase CK-MB (CK-2) Rel Index Troponin T Albumin LDL Cholesterol Direct PTH Intact Salicylates Acetaminophen Crossmatch 03/01/19 03/01/19 03/01/19 11:56 13:54 17:59 WBC RBC Hgb Hct MCH MCHC RDW Lymph % (Auto) Saline % (Auto) Eos % (Auto) Lymph # Saline # Eos # Seg Neutrophils % Seg Neuts % (Manual) Lymphocytes % (Manual) Eosinophils % (Manual) Seg Neutrophils # Lymphocytes # (Manual) Eosinophils # (Manual) PT INR D-Dimer POC ABG pH POC ABG pCO2 POC ABG pO2 ABG pO2 ABG HCO3 ABG Base Excess ABG Hemoglobin Oxyhemoglobin Sodium Potassium Chloride Carbon Dioxide BUN 33 H Creatinine 2.8 H D Glucose 176 H POC Glucose 199 H 147 H Calcium Phosphorus Magnesium ALT Alkaline Phosphatase Total Creatine Kinase CK-MB (CK-2) Rel Index Troponin T Albumin LDL Cholesterol Direct PTH Intact Salicylates Acetaminophen Crossmatch 03/02/19 03/02/19 03/02/19 05:15 05:15 05:15 WBC RBC 2.73 L Hgb 7.4 L Hct 23.0 L MCH 27 L MCHC RDW 19.9 H Lymph % (Auto) Saline % (Auto) 7.9 H Eos % (Auto) 7.6 H Lymph # 1.0 L Saline # Eos # 0.5 H Seg Neutrophils % Seg Neuts % (Manual) Lymphocytes % (Manual) Eosinophils % (Manual) Seg Neutrophils # Lymphocytes # (Manual) Eosinophils # (Manual) PT INR D-Dimer POC ABG pH POC ABG pCO2 POC ABG pO2 ABG pO2 ABG HCO3 ABG Base Excess ABG Hemoglobin Oxyhemoglobin Sodium Potassium Chloride Carbon Dioxide BUN 43 H Creatinine 3.2 H Glucose POC Glucose Calcium Phosphorus 2.30 L Magnesium ALT Alkaline Phosphatase Total Creatine Kinase CK-MB (CK-2) Rel Index Troponin T Albumin LDL Cholesterol Direct PTH Intact 267.6 H Salicylates Acetaminophen Crossmatch 03/02/19 03/02/19 03/03/19 12:32 18:20 13:30 WBC RBC Hgb Hct MCH MCHC RDW Lymph % (Auto) Saline % (Auto) Eos % (Auto) Lymph # Saline # Eos # Seg Neutrophils % Seg Neuts % (Manual) Lymphocytes % (Manual) Eosinophils % (Manual) Seg Neutrophils # Lymphocytes # (Manual) Eosinophils # (Manual) PT INR D-Dimer POC ABG pH POC ABG pCO2 POC ABG pO2 ABG pO2 ABG HCO3 ABG Base Excess ABG Hemoglobin Oxyhemoglobin Sodium Potassium Chloride 97.3 L Carbon Dioxide BUN 26 H Creatinine 2.2 H Glucose 73 L POC Glucose 111 H 156 H Calcium Phosphorus Magnesium ALT Alkaline Phosphatase Total Creatine Kinase CK-MB (CK-2) Rel Index Troponin T Albumin LDL Cholesterol Direct PTH Intact Salicylates Acetaminophen Crossmatch 03/04/19 03/04/19 03/04/19 00:02 05:37 05:40 WBC RBC 2.63 L Hgb 7.2 L Hct 22.2 L MCH MCHC RDW 20.2 H Lymph % (Auto) 10.5 L Saline % (Auto) Eos % (Auto) 4.6 H Lymph # 0.7 L Saline # Eos # Seg Neutrophils % 76.9 H Seg Neuts % (Manual) Lymphocytes % (Manual) Eosinophils % (Manual) Seg Neutrophils # Lymphocytes # (Manual) Eosinophils # (Manual) PT INR D-Dimer POC ABG pH POC ABG pCO2 POC ABG pO2 ABG pO2 ABG HCO3 ABG Base Excess ABG Hemoglobin Oxyhemoglobin Sodium Potassium Chloride Carbon Dioxide BUN Creatinine Glucose POC Glucose 136 H 123 H Calcium Phosphorus Magnesium ALT Alkaline Phosphatase Total Creatine Kinase CK-MB (CK-2) Rel Index Troponin T Albumin LDL Cholesterol Direct PTH Intact Salicylates Acetaminophen Crossmatch 03/04/19 03/04/19 03/04/19 05:40 11:39 23:20 WBC RBC Hgb Hct MCH MCHC RDW Lymph % (Auto) Saline % (Auto) Eos % (Auto) Lymph # Saline # Eos # Seg Neutrophils % Seg Neuts % (Manual) Lymphocytes % (Manual) Eosinophils % (Manual) Seg Neutrophils # Lymphocytes # (Manual) Eosinophils # (Manual) PT INR D-Dimer POC ABG pH POC ABG pCO2 POC ABG pO2 ABG pO2 ABG HCO3 ABG Base Excess ABG Hemoglobin Oxyhemoglobin Sodium Potassium Chloride Carbon Dioxide BUN 34 H Creatinine 2.7 H Glucose 114 H POC Glucose 175 H 151 H Calcium Phosphorus Magnesium ALT Alkaline Phosphatase Total Creatine Kinase CK-MB (CK-2) Rel Index Troponin T Albumin LDL Cholesterol Direct PTH Intact Salicylates Acetaminophen Crossmatch 03/05/19 03/05/19 03/05/19 05:37 12:08 17:11 WBC RBC Hgb Hct MCH MCHC RDW Lymph % (Auto) Saline % (Auto) Eos % (Auto) Lymph # Saline # Eos # Seg Neutrophils % Seg Neuts % (Manual) Lymphocytes % (Manual) Eosinophils % (Manual) Seg Neutrophils # Lymphocytes # (Manual) Eosinophils # (Manual) PT INR D-Dimer POC ABG pH POC ABG pCO2 POC ABG pO2 ABG pO2 ABG HCO3 ABG Base Excess ABG Hemoglobin Oxyhemoglobin Sodium Potassium Chloride Carbon Dioxide BUN Creatinine Glucose POC Glucose 134 H 135 H 135 H Calcium Phosphorus Magnesium ALT Alkaline Phosphatase Total Creatine Kinase CK-MB (CK-2) Rel Index Troponin T Albumin LDL Cholesterol Direct PTH Intact Salicylates Acetaminophen Crossmatch 08/16/19 08/16/19 08/16/19 00:16 13:05 18:09 WBC RBC Hgb Hct MCH MCHC RDW Lymph % (Auto) Saline % (Auto) Eos % (Auto) Lymph # Saline # Eos # Seg Neutrophils % Seg Neuts % (Manual) Lymphocytes % (Manual) Eosinophils % (Manual) Seg Neutrophils # Lymphocytes # (Manual) Eosinophils # (Manual) PT INR D-Dimer POC ABG pH POC ABG pCO2 POC ABG pO2 ABG pO2 ABG HCO3 ABG Base Excess ABG Hemoglobin Oxyhemoglobin Sodium Potassium Chloride Carbon Dioxide BUN Creatinine Glucose POC Glucose 117 H 113 H 131 H Calcium Phosphorus Magnesium ALT Alkaline Phosphatase Total Creatine Kinase CK-MB (CK-2) Rel Index Troponin T Albumin LDL Cholesterol Direct PTH Intact Salicylates Acetaminophen Crossmatch 03/07/19 03/08/19 03/08/19 05:25 05:33 16:00 WBC RBC 2.44 L Hgb 6.6 L Hct 20.8 L MCH 27 L MCHC RDW 19.2 H Lymph % (Auto) Saline % (Auto) Eos % (Auto) 8.6 H Lymph # 0.8 L Saline # Eos # 0.5 H Seg Neutrophils % 70.7 H Seg Neuts % (Manual) Lymphocytes % (Manual) Eosinophils % (Manual) Seg Neutrophils # Lymphocytes # (Manual) Eosinophils # (Manual) PT INR D-Dimer POC ABG pH POC ABG pCO2 POC ABG pO2 ABG pO2 ABG HCO3 ABG Base Excess ABG Hemoglobin Oxyhemoglobin Sodium Potassium Chloride Carbon Dioxide BUN Creatinine Glucose POC Glucose 106 H 108 H Calcium Phosphorus Magnesium ALT Alkaline Phosphatase Total Creatine Kinase CK-MB (CK-2) Rel Index Troponin T Albumin LDL Cholesterol Direct PTH Intact Salicylates Acetaminophen Crossmatch 03/08/19 03/08/19 03/08/19 16:00 18:38 Unknown WBC RBC Hgb Hct MCH MCHC RDW Lymph % (Auto) Saline % (Auto) Eos % (Auto) Lymph # Saline # Eos # Seg Neutrophils % Seg Neuts % (Manual) Lymphocytes % (Manual) Eosinophils % (Manual) Seg Neutrophils # Lymphocytes # (Manual) Eosinophils # (Manual) PT INR D-Dimer POC ABG pH POC ABG pCO2 POC ABG pO2 ABG pO2 ABG HCO3 ABG Base Excess ABG Hemoglobin Oxyhemoglobin Sodium Potassium 5.4 H D Chloride Carbon Dioxide BUN 47 H Creatinine 2.6 H Glucose POC Glucose 123 H Calcium Phosphorus Magnesium ALT < 5 L Alkaline Phosphatase Total Creatine Kinase CK-MB (CK-2) Rel Index Troponin T Albumin 2.2 L LDL Cholesterol Direct PTH Intact Salicylates Acetaminophen Crossmatch See Detail 03/09/19 03/09/19 03/09/19 10:48 12:28 13:53 WBC RBC 2.85 L Hgb 7.7 L Hct 24.2 L MCH 27 L MCHC RDW 18.7 H Lymph % (Auto) Saline % (Auto) Eos % (Auto) Lymph # Saline # Eos # Seg Neutrophils % Seg Neuts % (Manual) Lymphocytes % (Manual) Eosinophils % (Manual) Seg Neutrophils # Lymphocytes # (Manual) Eosinophils # (Manual) PT INR D-Dimer POC ABG pH POC ABG pCO2 POC ABG pO2 ABG pO2 ABG HCO3 30.5 H ABG Base Excess 5.6 H ABG Hemoglobin 8.1 L Oxyhemoglobin 93.8 L Sodium Potassium Chloride Carbon Dioxide BUN Creatinine Glucose POC Glucose 114 H Calcium Phosphorus Magnesium ALT Alkaline Phosphatase Total Creatine Kinase CK-MB (CK-2) Rel Index Troponin T Albumin LDL Cholesterol Direct PTH Intact Salicylates Acetaminophen Crossmatch 03/09/19 03/09/19 03/10/19 17:58 23:53 12:01 WBC RBC Hgb Hct MCH MCHC RDW Lymph % (Auto) Saline % (Auto) Eos % (Auto) Lymph # Saline # Eos # Seg Neutrophils % Seg Neuts % (Manual) Lymphocytes % (Manual) Eosinophils % (Manual) Seg Neutrophils # Lymphocytes # (Manual) Eosinophils # (Manual) PT INR D-Dimer POC ABG pH POC ABG pCO2 POC ABG pO2 ABG pO2 ABG HCO3 ABG Base Excess ABG Hemoglobin Oxyhemoglobin Sodium Potassium Chloride Carbon Dioxide BUN Creatinine Glucose POC Glucose 108 H 128 H 144 H Calcium Phosphorus Magnesium ALT Alkaline Phosphatase Total Creatine Kinase CK-MB (CK-2) Rel Index Troponin T Albumin LDL Cholesterol Direct PTH Intact Salicylates Acetaminophen Crossmatch 03/10/19 03/11/19 03/11/19 16:50 00:24 05:02 WBC RBC Hgb Hct MCH MCHC RDW Lymph % (Auto) Saline % (Auto) Eos % (Auto) Lymph # Saline # Eos # Seg Neutrophils % Seg Neuts % (Manual) Lymphocytes % (Manual) Eosinophils % (Manual) Seg Neutrophils # Lymphocytes # (Manual) Eosinophils # (Manual) PT INR D-Dimer POC ABG pH POC ABG pCO2 POC ABG pO2 ABG pO2 ABG HCO3 ABG Base Excess ABG Hemoglobin Oxyhemoglobin Sodium Potassium Chloride Carbon Dioxide BUN Creatinine Glucose POC Glucose 147 H 123 H 120 H Calcium Phosphorus Magnesium ALT Alkaline Phosphatase Total Creatine Kinase CK-MB (CK-2) Rel Index Troponin T Albumin LDL Cholesterol Direct PTH Intact Salicylates Acetaminophen Crossmatch 03/11/19 03/11/19 03/11/19 11:56 12:20 18:37 WBC RBC Hgb Hct MCH MCHC RDW Lymph % (Auto) Saline % (Auto) Eos % (Auto) Lymph # Saline # Eos # Seg Neutrophils % Seg Neuts % (Manual) Lymphocytes % (Manual) Eosinophils % (Manual) Seg Neutrophils # Lymphocytes # (Manual) Eosinophils # (Manual) PT INR D-Dimer POC ABG pH POC ABG pCO2 POC ABG pO2 ABG pO2 ABG HCO3 ABG Base Excess ABG Hemoglobin Oxyhemoglobin Sodium Potassium 5.2 H Chloride Carbon Dioxide BUN Creatinine Glucose POC Glucose 123 H 125 H Calcium Phosphorus Magnesium ALT Alkaline Phosphatase Total Creatine Kinase CK-MB (CK-2) Rel Index Troponin T Albumin LDL Cholesterol Direct PTH Intact Salicylates Acetaminophen Crossmatch 03/11/19 03/12/19 03/12/19 22:52 12:04 18:25 WBC RBC Hgb Hct MCH MCHC RDW Lymph % (Auto) Saline % (Auto) Eos % (Auto) Lymph # Saline # Eos # Seg Neutrophils % Seg Neuts % (Manual) Lymphocytes % (Manual) Eosinophils % (Manual) Seg Neutrophils # Lymphocytes # (Manual) Eosinophils # (Manual) PT INR D-Dimer POC ABG pH POC ABG pCO2 POC ABG pO2 ABG pO2 ABG HCO3 ABG Base Excess ABG Hemoglobin Oxyhemoglobin Sodium Potassium Chloride Carbon Dioxide BUN Creatinine Glucose POC Glucose 110 H 106 H 118 H Calcium Phosphorus Magnesium ALT Alkaline Phosphatase Total Creatine Kinase CK-MB (CK-2) Rel Index Troponin T Albumin LDL Cholesterol Direct PTH Intact Salicylates Acetaminophen Crossmatch 03/12/19 03/13/19 03/13/19 23:36 04:38 04:38 WBC RBC 2.95 L Hgb 7.9 L Hct 24.9 L MCH 27 L MCHC RDW 19.9 H Lymph % (Auto) 11.1 L Saline % (Auto) 8.1 H Eos % (Auto) 4.4 H Lymph # 0.9 L Saline # Eos # Seg Neutrophils % 75.4 H Seg Neuts % (Manual) Lymphocytes % (Manual) Eosinophils % (Manual) Seg Neutrophils # Lymphocytes # (Manual) Eosinophils # (Manual) PT INR D-Dimer POC ABG pH POC ABG pCO2 POC ABG pO2 ABG pO2 ABG HCO3 ABG Base Excess ABG Hemoglobin Oxyhemoglobin Sodium 136 L Potassium 5.1 H Chloride 93.8 L Carbon Dioxide BUN 48 H Creatinine 2.7 H Glucose 102 H POC Glucose 115 H Calcium Phosphorus Magnesium ALT < 5 L Alkaline Phosphatase 143 H Total Creatine Kinase CK-MB (CK-2) Rel Index Troponin T Albumin 2.5 L LDL Cholesterol Direct PTH Intact Salicylates Acetaminophen Crossmatch 03/13/19 03/13/19 03/13/19 05:33 13:37 18:03 WBC RBC Hgb Hct MCH MCHC RDW Lymph % (Auto) Saline % (Auto) Eos % (Auto) Lymph # Saline # Eos # Seg Neutrophils % Seg Neuts % (Manual) Lymphocytes % (Manual) Eosinophils % (Manual) Seg Neutrophils # Lymphocytes # (Manual) Eosinophils # (Manual) PT INR D-Dimer POC ABG pH POC ABG pCO2 POC ABG pO2 ABG pO2 ABG HCO3 ABG Base Excess ABG Hemoglobin Oxyhemoglobin Sodium Potassium Chloride Carbon Dioxide BUN Creatinine Glucose POC Glucose 140 H 150 H 158 H Calcium Phosphorus Magnesium ALT Alkaline Phosphatase Total Creatine Kinase CK-MB (CK-2) Rel Index Troponin T Albumin LDL Cholesterol Direct PTH Intact Salicylates Acetaminophen Crossmatch 03/13/19 03/14/19 03/14/19 23:32 05:24 12:20 WBC RBC Hgb Hct MCH MCHC RDW Lymph % (Auto) Saline % (Auto) Eos % (Auto) Lymph # Saline # Eos # Seg Neutrophils % Seg Neuts % (Manual) Lymphocytes % (Manual) Eosinophils % (Manual) Seg Neutrophils # Lymphocytes # (Manual) Eosinophils # (Manual) PT INR D-Dimer POC ABG pH POC ABG pCO2 POC ABG pO2 ABG pO2 ABG HCO3 ABG Base Excess ABG Hemoglobin Oxyhemoglobin Sodium Potassium Chloride Carbon Dioxide BUN Creatinine Glucose POC Glucose 162 H 146 H 127 H Calcium Phosphorus Magnesium ALT Alkaline Phosphatase Total Creatine Kinase CK-MB (CK-2) Rel Index Troponin T Albumin LDL Cholesterol Direct PTH Intact Salicylates Acetaminophen Crossmatch 03/14/19 03/14/19 03/15/19 18:05 23:57 04:38 WBC 12.8 H RBC 3.11 L Hgb 8.1 L Hct 26.5 L MCH 26 L MCHC 31 L RDW 19.7 H Lymph % (Auto) 4.4 L Saline % (Auto) 7.4 H Eos % (Auto) Lymph # 0.6 L Saline # 0.9 H Eos # Seg Neutrophils % 87.3 H Seg Neuts % (Manual) Lymphocytes % (Manual) Eosinophils % (Manual) Seg Neutrophils # 11.2 H Lymphocytes # (Manual) Eosinophils # (Manual) PT INR D-Dimer POC ABG pH POC ABG pCO2 POC ABG pO2 ABG pO2 ABG HCO3 ABG Base Excess ABG Hemoglobin Oxyhemoglobin Sodium Potassium Chloride Carbon Dioxide BUN Creatinine Glucose POC Glucose 142 H 155 H Calcium Phosphorus Magnesium ALT Alkaline Phosphatase Total Creatine Kinase CK-MB (CK-2) Rel Index Troponin T Albumin LDL Cholesterol Direct PTH Intact Salicylates Acetaminophen Crossmatch 03/15/19 03/15/19 03/15/19 04:38 05:31 11:32 WBC RBC Hgb Hct MCH MCHC RDW Lymph % (Auto) Saline % (Auto) Eos % (Auto) Lymph # Saline # Eos # Seg Neutrophils % Seg Neuts % (Manual) Lymphocytes % (Manual) Eosinophils % (Manual) Seg Neutrophils # Lymphocytes # (Manual) Eosinophils # (Manual) PT INR D-Dimer POC ABG pH POC ABG pCO2 POC ABG pO2 ABG pO2 ABG HCO3 ABG Base Excess ABG Hemoglobin Oxyhemoglobin Sodium 135 L Potassium Chloride 91.9 L Carbon Dioxide BUN 54 H Creatinine 2.8 H Glucose 128 H POC Glucose 160 H 109 H Calcium 11.1 H Phosphorus Magnesium ALT Alkaline Phosphatase 161 H Total Creatine Kinase CK-MB (CK-2) Rel Index Troponin T Albumin 2.3 L LDL Cholesterol Direct PTH Intact Salicylates Acetaminophen Crossmatch 03/15/19 03/15/19 03/16/19 18:15 23:41 05:40 WBC RBC Hgb Hct MCH MCHC RDW Lymph % (Auto) Saline % (Auto) Eos % (Auto) Lymph # Saline # Eos # Seg Neutrophils % Seg Neuts % (Manual) Lymphocytes % (Manual) Eosinophils % (Manual) Seg Neutrophils # Lymphocytes # (Manual) Eosinophils # (Manual) PT INR D-Dimer POC ABG pH POC ABG pCO2 POC ABG pO2 ABG pO2 ABG HCO3 ABG Base Excess ABG Hemoglobin Oxyhemoglobin Sodium Potassium Chloride Carbon Dioxide BUN Creatinine Glucose POC Glucose 151 H 110 H 163 H Calcium Phosphorus Magnesium ALT Alkaline Phosphatase Total Creatine Kinase CK-MB (CK-2) Rel Index Troponin T Albumin LDL Cholesterol Direct PTH Intact Salicylates Acetaminophen Crossmatch 03/16/19 03/16/19 03/16/19 11:55 17:04 23:58 WBC RBC Hgb Hct MCH MCHC RDW Lymph % (Auto) Saline % (Auto) Eos % (Auto) Lymph # Saline # Eos # Seg Neutrophils % Seg Neuts % (Manual) Lymphocytes % (Manual) Eosinophils % (Manual) Seg Neutrophils # Lymphocytes # (Manual) Eosinophils # (Manual) PT INR D-Dimer POC ABG pH POC ABG pCO2 POC ABG pO2 ABG pO2 ABG HCO3 ABG Base Excess ABG Hemoglobin Oxyhemoglobin Sodium Potassium Chloride Carbon Dioxide BUN Creatinine Glucose POC Glucose 114 H 147 H 192 H Calcium Phosphorus Magnesium ALT Alkaline Phosphatase Total Creatine Kinase CK-MB (CK-2) Rel Index Troponin T Albumin LDL Cholesterol Direct PTH Intact Salicylates Acetaminophen Crossmatch 03/17/19 03/17/19 03/17/19 05:53 11:17 17:01 WBC RBC Hgb Hct MCH MCHC RDW Lymph % (Auto) Saline % (Auto) Eos % (Auto) Lymph # Saline # Eos # Seg Neutrophils % Seg Neuts % (Manual) Lymphocytes % (Manual) Eosinophils % (Manual) Seg Neutrophils # Lymphocytes # (Manual) Eosinophils # (Manual) PT INR D-Dimer POC ABG pH POC ABG pCO2 POC ABG pO2 ABG pO2 ABG HCO3 ABG Base Excess ABG Hemoglobin Oxyhemoglobin Sodium Potassium Chloride Carbon Dioxide BUN Creatinine Glucose POC Glucose 151 H 161 H 152 H Calcium Phosphorus Magnesium ALT Alkaline Phosphatase Total Creatine Kinase CK-MB (CK-2) Rel Index Troponin T Albumin LDL Cholesterol Direct PTH Intact Salicylates Acetaminophen Crossmatch 03/17/19 03/18/19 03/18/19 21:47 04:15 04:44 WBC RBC Hgb Hct MCH MCHC RDW Lymph % (Auto) Saline % (Auto) Eos % (Auto) Lymph # Saline # Eos # Seg Neutrophils % Seg Neuts % (Manual) Lymphocytes % (Manual) Eosinophils % (Manual) Seg Neutrophils # Lymphocytes # (Manual) Eosinophils # (Manual) PT INR D-Dimer POC ABG pH POC ABG pCO2 POC ABG pO2 ABG pO2 102.8 H ABG HCO3 28.3 H ABG Base Excess ABG Hemoglobin 10.4 L Oxyhemoglobin 94.5 L Sodium Potassium Chloride Carbon Dioxide BUN Creatinine Glucose POC Glucose 170 H 150 H Calcium Phosphorus Magnesium ALT Alkaline Phosphatase Total Creatine Kinase CK-MB (CK-2) Rel Index Troponin T Albumin LDL Cholesterol Direct PTH Intact Salicylates Acetaminophen Crossmatch 03/18/19 03/18/19 03/18/19 06:38 12:12 17:47 WBC RBC Hgb Hct MCH MCHC RDW Lymph % (Auto) Saline % (Auto) Eos % (Auto) Lymph # Saline # Eos # Seg Neutrophils % Seg Neuts % (Manual) Lymphocytes % (Manual) Eosinophils % (Manual) Seg Neutrophils # Lymphocytes # (Manual) Eosinophils # (Manual) PT INR D-Dimer POC ABG pH 7.510 H POC ABG pCO2 POC ABG pO2 164 H ABG pO2 ABG HCO3 ABG Base Excess ABG Hemoglobin Oxyhemoglobin Sodium Potassium Chloride Carbon Dioxide BUN Creatinine Glucose POC Glucose 145 H 149 H Calcium Phosphorus Magnesium ALT Alkaline Phosphatase Total Creatine Kinase CK-MB (CK-2) Rel Index Troponin T Albumin LDL Cholesterol Direct PTH Intact Salicylates Acetaminophen Crossmatch 03/18/19 03/19/19 03/19/19 23:25 01:11 04:23 WBC 15.6 H RBC 2.51 L Hgb 6.5 L Hct 21.6 L MCH 26 L MCHC 30 L RDW 19.8 H Lymph % (Auto) 6.0 L Saline % (Auto) Eos % (Auto) Lymph # 0.9 L Saline # 1.0 H Eos # Seg Neutrophils % 85.5 H Seg Neuts % (Manual) Lymphocytes % (Manual) Eosinophils % (Manual) Seg Neutrophils # 13.4 H Lymphocytes # (Manual) Eosinophils # (Manual) PT INR D-Dimer POC ABG pH POC ABG pCO2 POC ABG pO2 ABG pO2 78.3 L ABG HCO3 30.7 H ABG Base Excess 5.8 H ABG Hemoglobin 5.8 L Oxyhemoglobin 94.6 L Sodium Potassium Chloride Carbon Dioxide BUN Creatinine Glucose POC Glucose 190 H Calcium Phosphorus Magnesium ALT Alkaline Phosphatase Total Creatine Kinase CK-MB (CK-2) Rel Index Troponin T Albumin LDL Cholesterol Direct PTH Intact Salicylates Acetaminophen Crossmatch 03/19/19 03/19/19 03/19/19 05:22 05:35 08:54 WBC RBC Hgb Hct MCH MCHC RDW Lymph % (Auto) Saline % (Auto) Eos % (Auto) Lymph # Saline # Eos # Seg Neutrophils % Seg Neuts % (Manual) Lymphocytes % (Manual) Eosinophils % (Manual) Seg Neutrophils # Lymphocytes # (Manual) Eosinophils # (Manual) PT INR D-Dimer POC ABG pH POC ABG pCO2 POC ABG pO2 ABG pO2 ABG HCO3 ABG Base Excess ABG Hemoglobin Oxyhemoglobin Sodium Potassium Chloride Carbon Dioxide BUN Creatinine Glucose POC Glucose 167 H Calcium Phosphorus Magnesium ALT Alkaline Phosphatase Total Creatine Kinase CK-MB (CK-2) Rel Index Troponin T Albumin LDL Cholesterol Direct PTH Intact Salicylates Acetaminophen Crossmatch See Detail See Detail 03/19/19 03/19/19 03/19/19 12:36 17:02 23:25 WBC RBC Hgb Hct MCH MCHC RDW Lymph % (Auto) Saline % (Auto) Eos % (Auto) Lymph # Saline # Eos # Seg Neutrophils % Seg Neuts % (Manual) Lymphocytes % (Manual) Eosinophils % (Manual) Seg Neutrophils # Lymphocytes # (Manual) Eosinophils # (Manual) PT INR D-Dimer POC ABG pH POC ABG pCO2 POC ABG pO2 ABG pO2 ABG HCO3 ABG Base Excess ABG Hemoglobin Oxyhemoglobin Sodium Potassium Chloride Carbon Dioxide BUN Creatinine Glucose POC Glucose 167 H 135 H 136 H Calcium Phosphorus Magnesium ALT Alkaline Phosphatase Total Creatine Kinase CK-MB (CK-2) Rel Index Troponin T Albumin LDL Cholesterol Direct PTH Intact Salicylates Acetaminophen Crossmatch 03/20/19 03/20/19 03/20/19 05:38 08:40 08:40 WBC RBC 2.61 L Hgb 7.1 L Hct 22.0 L MCH 27 L MCHC RDW 19.6 H Lymph % (Auto) 8.2 L Saline % (Auto) 8.3 H Eos % (Auto) 5.7 H Lymph # 0.8 L Saline # Eos # 0.5 H Seg Neutrophils % 77.3 H Seg Neuts % (Manual) Lymphocytes % (Manual) Eosinophils % (Manual) Seg Neutrophils # Lymphocytes # (Manual) Eosinophils # (Manual) PT INR D-Dimer POC ABG pH POC ABG pCO2 POC ABG pO2 ABG pO2 ABG HCO3 ABG Base Excess ABG Hemoglobin Oxyhemoglobin Sodium Potassium Chloride 95.9 L Carbon Dioxide BUN 69 H Creatinine 2.8 H Glucose 115 H POC Glucose 134 H Calcium 10.5 H Phosphorus Magnesium ALT Alkaline Phosphatase Total Creatine Kinase CK-MB (CK-2) Rel Index Troponin T Albumin LDL Cholesterol Direct PTH Intact Salicylates Acetaminophen Crossmatch 03/20/19 03/20/19 03/20/19 12:13 18:04 23:49 WBC RBC Hgb Hct MCH MCHC RDW Lymph % (Auto) Saline % (Auto) Eos % (Auto) Lymph # Saline # Eos # Seg Neutrophils % Seg Neuts % (Manual) Lymphocytes % (Manual) Eosinophils % (Manual) Seg Neutrophils # Lymphocytes # (Manual) Eosinophils # (Manual) PT INR D-Dimer POC ABG pH POC ABG pCO2 POC ABG pO2 ABG pO2 ABG HCO3 ABG Base Excess ABG Hemoglobin Oxyhemoglobin Sodium Potassium Chloride Carbon Dioxide BUN Creatinine Glucose POC Glucose 144 H 165 H 172 H Calcium Phosphorus Magnesium ALT Alkaline Phosphatase Total Creatine Kinase CK-MB (CK-2) Rel Index Troponin T Albumin LDL Cholesterol Direct PTH Intact Salicylates Acetaminophen Crossmatch 03/21/19 03/21/19 03/21/19 05:00 06:29 06:30 WBC RBC 2.72 L Hgb 7.4 L Hct 22.9 L MCH 27 L MCHC RDW 19.4 H Lymph % (Auto) Saline % (Auto) Eos % (Auto) Lymph # Saline # Eos # Seg Neutrophils % Seg Neuts % (Manual) 81.0 H Lymphocytes % (Manual) 8.0 L Eosinophils % (Manual) 8.0 H Seg Neutrophils # Lymphocytes # (Manual) 0.7 L Eosinophils # (Manual) 0.7 H PT INR D-Dimer POC ABG pH POC ABG pCO2 POC ABG pO2 ABG pO2 ABG HCO3 ABG Base Excess ABG Hemoglobin Oxyhemoglobin Sodium Potassium Chloride Carbon Dioxide 33 H BUN 43 H Creatinine 1.7 H Glucose 145 H POC Glucose 156 H Calcium Phosphorus Magnesium ALT Alkaline Phosphatase 212 H Total Creatine Kinase CK-MB (CK-2) Rel Index Troponin T Albumin 2.2 L LDL Cholesterol Direct PTH Intact Salicylates Acetaminophen Crossmatch 03/21/19 03/21/19 03/22/19 12:02 18:07 00:21 WBC RBC Hgb Hct MCH MCHC RDW Lymph % (Auto) Saline % (Auto) Eos % (Auto) Lymph # Saline # Eos # Seg Neutrophils % Seg Neuts % (Manual) Lymphocytes % (Manual) Eosinophils % (Manual) Seg Neutrophils # Lymphocytes # (Manual) Eosinophils # (Manual) PT INR D-Dimer POC ABG pH POC ABG pCO2 POC ABG pO2 ABG pO2 ABG HCO3 ABG Base Excess ABG Hemoglobin Oxyhemoglobin Sodium Potassium Chloride Carbon Dioxide BUN Creatinine Glucose POC Glucose 163 H 144 H 153 H Calcium Phosphorus Magnesium ALT Alkaline Phosphatase Total Creatine Kinase CK-MB (CK-2) Rel Index Troponin T Albumin LDL Cholesterol Direct PTH Intact Salicylates Acetaminophen Crossmatch 03/22/19 03/22/19 03/22/19 05:23 05:23 05:31 WBC RBC 2.58 L Hgb 7.1 L Hct 21.8 L MCH 27 L MCHC RDW 19.2 H Lymph % (Auto) Saline % (Auto) Eos % (Auto) Lymph # Saline # Eos # Seg Neutrophils % Seg Neuts % (Manual) Lymphocytes % (Manual) Eosinophils % (Manual) Seg Neutrophils # Lymphocytes # (Manual) Eosinophils # (Manual) PT INR D-Dimer POC ABG pH POC ABG pCO2 POC ABG pO2 ABG pO2 ABG HCO3 ABG Base Excess ABG Hemoglobin Oxyhemoglobin Sodium 147 H Potassium Chloride Carbon Dioxide BUN 68 H Creatinine 2.5 H Glucose POC Glucose 116 H Calcium 10.3 H Phosphorus Magnesium ALT Alkaline Phosphatase Total Creatine Kinase CK-MB (CK-2) Rel Index Troponin T Albumin LDL Cholesterol Direct PTH Intact Salicylates Acetaminophen Crossmatch 03/22/19 03/22/19 03/22/19 08:48 12:37 17:35 WBC RBC Hgb Hct MCH MCHC RDW Lymph % (Auto) Saline % (Auto) Eos % (Auto) Lymph # Saline # Eos # Seg Neutrophils % Seg Neuts % (Manual) Lymphocytes % (Manual) Eosinophils % (Manual) Seg Neutrophils # Lymphocytes # (Manual) Eosinophils # (Manual) PT INR D-Dimer POC ABG pH POC ABG pCO2 POC ABG pO2 ABG pO2 ABG HCO3 ABG Base Excess ABG Hemoglobin Oxyhemoglobin Sodium Potassium Chloride Carbon Dioxide BUN Creatinine Glucose POC Glucose 143 H 155 H Calcium Phosphorus Magnesium ALT Alkaline Phosphatase Total Creatine Kinase CK-MB (CK-2) Rel Index Troponin T Albumin LDL Cholesterol Direct PTH Intact Salicylates Acetaminophen Crossmatch See Detail 03/23/19 03/23/19 03/23/19 00:07 04:00 04:00 WBC 11.2 H RBC 2.32 L Hgb 6.4 L Hct 19.7 L* MCH MCHC RDW 19.4 H Lymph % (Auto) Saline % (Auto) Eos % (Auto) Lymph # Saline # Eos # Seg Neutrophils % Seg Neuts % (Manual) Lymphocytes % (Manual) Eosinophils % (Manual) Seg Neutrophils # Lymphocytes # (Manual) Eosinophils # (Manual) PT INR D-Dimer POC ABG pH POC ABG pCO2 POC ABG pO2 ABG pO2 ABG HCO3 ABG Base Excess ABG Hemoglobin Oxyhemoglobin Sodium 147 H Potassium 5.2 H Chloride Carbon Dioxide BUN 86 H Creatinine 3.2 H Glucose 128 H POC Glucose 135 H Calcium 10.3 H Phosphorus Magnesium ALT Alkaline Phosphatase Total Creatine Kinase CK-MB (CK-2) Rel Index Troponin T Albumin LDL Cholesterol Direct PTH Intact Salicylates Acetaminophen Crossmatch 03/23/19 03/23/19 03/23/19 05:21 11:36 11:36 WBC RBC Hgb 7.9 L Hct 25.0 L MCH MCHC RDW Lymph % (Auto) Saline % (Auto) Eos % (Auto) Lymph # Saline # Eos # Seg Neutrophils % Seg Neuts % (Manual) Lymphocytes % (Manual) Eosinophils % (Manual) Seg Neutrophils # Lymphocytes # (Manual) Eosinophils # (Manual) PT INR D-Dimer POC ABG pH POC ABG pCO2 POC ABG pO2 ABG pO2 ABG HCO3 ABG Base Excess ABG Hemoglobin Oxyhemoglobin Sodium Potassium Chloride Carbon Dioxide BUN Creatinine Glucose POC Glucose 132 H 147 H Calcium Phosphorus Magnesium ALT Alkaline Phosphatase Total Creatine Kinase CK-MB (CK-2) Rel Index Troponin T Albumin LDL Cholesterol Direct PTH Intact Salicylates Acetaminophen Crossmatch 03/23/19 03/24/19 03/24/19 17:31 01:22 04:20 WBC 12.2 H RBC 3.05 L Hgb 8.3 L Hct 25.9 L MCH 27 L MCHC RDW 18.7 H Lymph % (Auto) Saline % (Auto) Eos % (Auto) Lymph # Saline # Eos # Seg Neutrophils % Seg Neuts % (Manual) Lymphocytes % (Manual) Eosinophils % (Manual) Seg Neutrophils # Lymphocytes # (Manual) Eosinophils # (Manual) PT INR D-Dimer POC ABG pH POC ABG pCO2 POC ABG pO2 ABG pO2 ABG HCO3 ABG Base Excess ABG Hemoglobin Oxyhemoglobin Sodium Potassium Chloride Carbon Dioxide BUN Creatinine Glucose POC Glucose 182 H 113 H Calcium Phosphorus Magnesium ALT Alkaline Phosphatase Total Creatine Kinase CK-MB (CK-2) Rel Index Troponin T Albumin LDL Cholesterol Direct PTH Intact Salicylates Acetaminophen Crossmatch 03/24/19 03/24/19 03/24/19 04:20 11:59 18:14 WBC RBC Hgb Hct MCH MCHC RDW Lymph % (Auto) Saline % (Auto) Eos % (Auto) Lymph # Saline # Eos # Seg Neutrophils % Seg Neuts % (Manual) Lymphocytes % (Manual) Eosinophils % (Manual) Seg Neutrophils # Lymphocytes # (Manual) Eosinophils # (Manual) PT INR D-Dimer POC ABG pH POC ABG pCO2 POC ABG pO2 ABG pO2 ABG HCO3 ABG Base Excess ABG Hemoglobin Oxyhemoglobin Sodium Potassium Chloride 94.8 L Carbon Dioxide 32 H BUN 53 H Creatinine 2.3 H Glucose POC Glucose 163 H 134 H Calcium Phosphorus Magnesium ALT Alkaline Phosphatase Total Creatine Kinase CK-MB (CK-2) Rel Index Troponin T Albumin LDL Cholesterol Direct PTH Intact Salicylates Acetaminophen Crossmatch 03/24/19 03/25/19 03/25/19 23:15 05:52 12:02 WBC RBC Hgb Hct MCH MCHC RDW Lymph % (Auto) Saline % (Auto) Eos % (Auto) Lymph # Saline # Eos # Seg Neutrophils % Seg Neuts % (Manual) Lymphocytes % (Manual) Eosinophils % (Manual) Seg Neutrophils # Lymphocytes # (Manual) Eosinophils # (Manual) PT INR D-Dimer POC ABG pH POC ABG pCO2 POC ABG pO2 ABG pO2 ABG HCO3 ABG Base Excess ABG Hemoglobin Oxyhemoglobin Sodium Potassium Chloride Carbon Dioxide BUN Creatinine Glucose POC Glucose 129 H 123 H 125 H Calcium Phosphorus Magnesium ALT Alkaline Phosphatase Total Creatine Kinase CK-MB (CK-2) Rel Index Troponin T Albumin LDL Cholesterol Direct PTH Intact Salicylates Acetaminophen Crossmatch 03/25/19 03/26/19 03/26/19 17:27 00:30 05:35 WBC RBC 3.01 L Hgb 8.1 L Hct 25.7 L MCH 27 L MCHC RDW 19.2 H Lymph % (Auto) 11.4 L Saline % (Auto) Eos % (Auto) 8.0 H Lymph # 1.0 L Saline # Eos # 0.7 H Seg Neutrophils % 73.9 H Seg Neuts % (Manual) Lymphocytes % (Manual) Eosinophils % (Manual) Seg Neutrophils # Lymphocytes # (Manual) Eosinophils # (Manual) PT INR D-Dimer POC ABG pH POC ABG pCO2 POC ABG pO2 ABG pO2 ABG HCO3 ABG Base Excess ABG Hemoglobin Oxyhemoglobin Sodium Potassium Chloride Carbon Dioxide BUN Creatinine Glucose POC Glucose 130 H 129 H Calcium Phosphorus Magnesium ALT Alkaline Phosphatase Total Creatine Kinase CK-MB (CK-2) Rel Index Troponin T Albumin LDL Cholesterol Direct PTH Intact Salicylates Acetaminophen Crossmatch 03/26/19 03/26/19 03/26/19 05:35 05:45 12:16 WBC RBC Hgb Hct MCH MCHC RDW Lymph % (Auto) Saline % (Auto) Eos % (Auto) Lymph # Saline # Eos # Seg Neutrophils % Seg Neuts % (Manual) Lymphocytes % (Manual) Eosinophils % (Manual) Seg Neutrophils # Lymphocytes # (Manual) Eosinophils # (Manual) PT INR D-Dimer POC ABG pH POC ABG pCO2 POC ABG pO2 ABG pO2 ABG HCO3 ABG Base Excess ABG Hemoglobin Oxyhemoglobin Sodium Potassium Chloride 94.9 L Carbon Dioxide 31 H BUN 44 H Creatinine 2.0 H Glucose POC Glucose 118 H 107 H Calcium Phosphorus Magnesium ALT Alkaline Phosphatase Total Creatine Kinase CK-MB (CK-2) Rel Index Troponin T Albumin LDL Cholesterol Direct PTH Intact Salicylates Acetaminophen Crossmatch 03/26/19 03/27/19 03/27/19 17:56 00:36 05:37 WBC RBC Hgb Hct MCH MCHC RDW Lymph % (Auto) Saline % (Auto) Eos % (Auto) Lymph # Saline # Eos # Seg Neutrophils % Seg Neuts % (Manual) Lymphocytes % (Manual) Eosinophils % (Manual) Seg Neutrophils # Lymphocytes # (Manual) Eosinophils # (Manual) PT INR D-Dimer POC ABG pH POC ABG pCO2 POC ABG pO2 ABG pO2 ABG HCO3 ABG Base Excess ABG Hemoglobin Oxyhemoglobin Sodium Potassium Chloride Carbon Dioxide BUN Creatinine Glucose POC Glucose 107 H 110 H 122 H Calcium Phosphorus Magnesium ALT Alkaline Phosphatase Total Creatine Kinase CK-MB (CK-2) Rel Index Troponin T Albumin LDL Cholesterol Direct PTH Intact Salicylates Acetaminophen Crossmatch 03/27/19 03/27/19 03/28/19 11:22 18:00 05:17 WBC RBC Hgb Hct MCH MCHC RDW Lymph % (Auto) Saline % (Auto) Eos % (Auto) Lymph # Saline # Eos # Seg Neutrophils % Seg Neuts % (Manual) Lymphocytes % (Manual) Eosinophils % (Manual) Seg Neutrophils # Lymphocytes # (Manual) Eosinophils # (Manual) PT INR D-Dimer POC ABG pH POC ABG pCO2 POC ABG pO2 ABG pO2 ABG HCO3 ABG Base Excess ABG Hemoglobin Oxyhemoglobin Sodium Potassium Chloride Carbon Dioxide BUN Creatinine Glucose POC Glucose 120 H 111 H 107 H Calcium Phosphorus Magnesium ALT Alkaline Phosphatase Total Creatine Kinase CK-MB (CK-2) Rel Index Troponin T Albumin LDL Cholesterol Direct PTH Intact Salicylates Acetaminophen Crossmatch 03/28/19 03/28/19 03/29/19 12:27 18:08 05:47 WBC RBC Hgb Hct MCH MCHC RDW Lymph % (Auto) Saline % (Auto) Eos % (Auto) Lymph # Saline # Eos # Seg Neutrophils % Seg Neuts % (Manual) Lymphocytes % (Manual) Eosinophils % (Manual) Seg Neutrophils # Lymphocytes # (Manual) Eosinophils # (Manual) PT INR D-Dimer POC ABG pH POC ABG pCO2 POC ABG pO2 ABG pO2 ABG HCO3 ABG Base Excess ABG Hemoglobin Oxyhemoglobin Sodium Potassium Chloride Carbon Dioxide BUN Creatinine Glucose POC Glucose 114 H 121 H 112 H Calcium Phosphorus Magnesium ALT Alkaline Phosphatase Total Creatine Kinase CK-MB (CK-2) Rel Index Troponin T Albumin LDL Cholesterol Direct PTH Intact Salicylates Acetaminophen Crossmatch 03/29/19 03/29/19 03/30/19 12:14 18:08 00:31 WBC RBC Hgb Hct MCH MCHC RDW Lymph % (Auto) Saline % (Auto) Eos % (Auto) Lymph # Saline # Eos # Seg Neutrophils % Seg Neuts % (Manual) Lymphocytes % (Manual) Eosinophils % (Manual) Seg Neutrophils # Lymphocytes # (Manual) Eosinophils # (Manual) PT INR D-Dimer POC ABG pH POC ABG pCO2 POC ABG pO2 ABG pO2 ABG HCO3 ABG Base Excess ABG Hemoglobin Oxyhemoglobin Sodium Potassium Chloride Carbon Dioxide BUN Creatinine Glucose POC Glucose 117 H 140 H 114 H Calcium Phosphorus Magnesium ALT Alkaline Phosphatase Total Creatine Kinase CK-MB (CK-2) Rel Index Troponin T Albumin LDL Cholesterol Direct PTH Intact Salicylates Acetaminophen Crossmatch 03/30/19 03/30/19 03/30/19 10:13 10:13 23:53 WBC RBC 2.81 L Hgb 7.7 L Hct 24.3 L MCH 27 L MCHC RDW 19.0 H Lymph % (Auto) 12.2 L Saline % (Auto) Eos % (Auto) 7.9 H Lymph # 1.0 L Saline # Eos # 0.6 H Seg Neutrophils % 72.3 H Seg Neuts % (Manual) Lymphocytes % (Manual) Eosinophils % (Manual) Seg Neutrophils # Lymphocytes # (Manual) Eosinophils # (Manual) PT INR D-Dimer POC ABG pH POC ABG pCO2 POC ABG pO2 ABG pO2 ABG HCO3 ABG Base Excess ABG Hemoglobin Oxyhemoglobin Sodium Potassium 5.1 H Chloride 96.5 L Carbon Dioxide BUN 73 H Creatinine 3.9 H D Glucose POC Glucose 114 H Calcium 10.3 H Phosphorus 6.30 H Magnesium 2.70 H ALT Alkaline Phosphatase 185 H Total Creatine Kinase CK-MB (CK-2) Rel Index Troponin T Albumin 2.6 L LDL Cholesterol Direct PTH Intact Salicylates Acetaminophen Crossmatch 03/31/19 03/31/19 03/31/19 05:45 10:26 10:26 WBC RBC 3.01 L Hgb 8.2 L Hct 26.4 L MCH 27 L MCHC 31 L RDW 20.3 H Lymph % (Auto) 13.3 L Saline % (Auto) Eos % (Auto) 7.2 H Lymph # 1.1 L Saline # Eos # 0.6 H Seg Neutrophils % 72.1 H Seg Neuts % (Manual) Lymphocytes % (Manual) Eosinophils % (Manual) Seg Neutrophils # Lymphocytes # (Manual) Eosinophils # (Manual) PT INR D-Dimer POC ABG pH POC ABG pCO2 POC ABG pO2 ABG pO2 ABG HCO3 ABG Base Excess ABG Hemoglobin Oxyhemoglobin Sodium Potassium Chloride 96.9 L Carbon Dioxide 33 H BUN 37 H Creatinine 2.4 H Glucose POC Glucose 108 H Calcium 10.3 H Phosphorus Magnesium ALT Alkaline Phosphatase Total Creatine Kinase CK-MB (CK-2) Rel Index Troponin T Albumin LDL Cholesterol Direct PTH Intact Salicylates Acetaminophen Crossmatch 03/31/19 04/01/19 04/01/19 12:38 05:48 12:06 WBC RBC Hgb Hct MCH MCHC RDW Lymph % (Auto) Saline % (Auto) Eos % (Auto) Lymph # Saline # Eos # Seg Neutrophils % Seg Neuts % (Manual) Lymphocytes % (Manual) Eosinophils % (Manual) Seg Neutrophils # Lymphocytes # (Manual) Eosinophils # (Manual) PT INR D-Dimer POC ABG pH POC ABG pCO2 POC ABG pO2 ABG pO2 ABG HCO3 ABG Base Excess ABG Hemoglobin Oxyhemoglobin Sodium Potassium Chloride Carbon Dioxide BUN Creatinine Glucose POC Glucose 108 H 114 H 111 H Calcium Phosphorus Magnesium ALT Alkaline Phosphatase Total Creatine Kinase CK-MB (CK-2) Rel Index Troponin T Albumin LDL Cholesterol Direct PTH Intact Salicylates Acetaminophen Crossmatch 04/01/19 04/02/19 04/04/19 18:24 00:36 23:55 WBC RBC Hgb Hct MCH MCHC RDW Lymph % (Auto) Saline % (Auto) Eos % (Auto) Lymph # Saline # Eos # Seg Neutrophils % Seg Neuts % (Manual) Lymphocytes % (Manual) Eosinophils % (Manual) Seg Neutrophils # Lymphocytes # (Manual) Eosinophils # (Manual) PT INR D-Dimer POC ABG pH POC ABG pCO2 POC ABG pO2 ABG pO2 ABG HCO3 ABG Base Excess ABG Hemoglobin Oxyhemoglobin Sodium Potassium Chloride Carbon Dioxide BUN Creatinine Glucose POC Glucose 113 H 117 H 109 H Calcium Phosphorus Magnesium ALT Alkaline Phosphatase Total Creatine Kinase CK-MB (CK-2) Rel Index Troponin T Albumin LDL Cholesterol Direct PTH Intact Salicylates Acetaminophen Crossmatch 04/06/19 04/06/19 04/06/19 00:11 06:02 23:30 WBC RBC Hgb Hct MCH MCHC RDW Lymph % (Auto) Saline % (Auto) Eos % (Auto) Lymph # Saline # Eos # Seg Neutrophils % Seg Neuts % (Manual) Lymphocytes % (Manual) Eosinophils % (Manual) Seg Neutrophils # Lymphocytes # (Manual) Eosinophils # (Manual) PT INR D-Dimer POC ABG pH POC ABG pCO2 POC ABG pO2 ABG pO2 ABG HCO3 ABG Base Excess ABG Hemoglobin Oxyhemoglobin Sodium Potassium Chloride Carbon Dioxide BUN Creatinine Glucose POC Glucose 116 H 112 H 112 H Calcium Phosphorus Magnesium ALT Alkaline Phosphatase Total Creatine Kinase CK-MB (CK-2) Rel Index Troponin T Albumin LDL Cholesterol Direct PTH Intact Salicylates Acetaminophen Crossmatch 04/08/19 04/08/19 04/08/19 02:23 06:19 13:01 WBC RBC Hgb Hct MCH MCHC RDW Lymph % (Auto) Saline % (Auto) Eos % (Auto) Lymph # Saline # Eos # Seg Neutrophils % Seg Neuts % (Manual) Lymphocytes % (Manual) Eosinophils % (Manual) Seg Neutrophils # Lymphocytes # (Manual) Eosinophils # (Manual) PT INR D-Dimer POC ABG pH POC ABG pCO2 POC ABG pO2 ABG pO2 ABG HCO3 ABG Base Excess ABG Hemoglobin Oxyhemoglobin Sodium Potassium Chloride Carbon Dioxide BUN Creatinine Glucose POC Glucose 144 H 126 H 118 H Calcium Phosphorus Magnesium ALT Alkaline Phosphatase Total Creatine Kinase CK-MB (CK-2) Rel Index Troponin T Albumin LDL Cholesterol Direct PTH Intact Salicylates Acetaminophen Crossmatch 04/08/19 04/09/19 04/10/19 23:28 05:52 06:34 WBC RBC Hgb Hct MCH MCHC RDW Lymph % (Auto) Saline % (Auto) Eos % (Auto) Lymph # Saline # Eos # Seg Neutrophils % Seg Neuts % (Manual) Lymphocytes % (Manual) Eosinophils % (Manual) Seg Neutrophils # Lymphocytes # (Manual) Eosinophils # (Manual) PT INR D-Dimer POC ABG pH POC ABG pCO2 POC ABG pO2 ABG pO2 ABG HCO3 ABG Base Excess ABG Hemoglobin Oxyhemoglobin Sodium Potassium Chloride Carbon Dioxide BUN Creatinine Glucose POC Glucose 119 H 116 H 114 H Calcium Phosphorus Magnesium ALT Alkaline Phosphatase Total Creatine Kinase CK-MB (CK-2) Rel Index Troponin T Albumin LDL Cholesterol Direct PTH Intact Salicylates Acetaminophen Crossmatch
--- NOTE | 2019-04-10 13:15 | Progress Note ---
Assessment and Plan Assessment and plan: Patient is a 63-year-old -Serbian man from [facility] with a plethora of co-morbidities including blindness, CVA, CHF, PPM/ICD, loop recorder since 2012 that is MRI compatible, IDDM type 2, sepsis left foot ulcer, afib, ESRD with complications on HD TTS, hypertension, AOCD and GERD who presented to the ED with hypotensive after intubation in the emergency room. Still intubated, diagnosed with fluid overload, pleural effusion. Patient has had recurrent admission in the hospital for similar reason and was recently discharged from the hospital following treatment of Severe Sepsis due to Necrotizing Unstagable sacral decubitus ulcer with ostemomylitis, expected to complete abx on discharge till 02/16/19. Trach and peg done and LTAC transfer with anticipated longer weaning process an d wound care management. HR control improved with change in BB. Acute respiratory failure on mechanical ventilator >96 hrs - Currently on trach placed on 03/03 Pulm consult appreciated weaning trial VAP BUNDLE ASPIRATION BUNDLE Acute pulmonary edema, fluid overload on CXR repeat xray intermittently Dialysis Dilated CMP Continue diuresis Acute encephalopathy, probably metabolic or toxic Continues on Mechanical ventilator. ESRD on hemodialysis nephrology following Vascular eval. done re: LUE AV graft, see note Bilateral pleural effusions Anticipate improvement with Permanent atrial fibrillation and flutter Not on anticoagulation because of anemia thrombocytopenia Change noted to BB agent to IV. 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 -Pt is s/p x1 DDVAP RUL atelectasis, probably mucous plugging DVT prophylaxis Lovenox Full code status poor prognosis Awaiting alf placement History Interval history: no fevers remains demented no vomiting, no agitation, no seizures Hospitalist Physical - Physical exam Narrative exam: Constitutional: no acute distress, opens eyes, says hello Eyes: non-icteric ENT: oropharynx moist Neck: supple Effort: normal Ascultation: Bilateral: other (coarse BS bilaterally) Percussion: Bilateral: not dull Cardiovascular: regular rate and rhythm (no mrg) Gastrointestinal: normoactive bowel sounds, soft, non-tender, non-distended, other (ostomy in place, brown stool) Extremities: no cyanosis, no edema, pink and warm Neurologic: other (mild weakness LUE, o/w nonfocal), demented Psychiatric: other (unable to assess) SKIN; Left 5th finger, stage 4 pressure ulcer,Left heel, deep tissue injury, Sacrum, stage 4 pressure ulcer POA - Constitutional Vitals: Temp Pulse Resp BP Pulse Ox 98.2 F 76 16 125/58 96 04/10/19 10:25 04/10/19 12:00 04/10/19 10:25 04/10/19 12:00 04/10/19 10:00 General appearance: Present: no acute distress Results - Labs CBC & Chem 7: 03/31/19 10:26 03/31/19 10:26 Labs: Laboratory Last Values WBC 8.3 K/mm3 (4.5-11.0) 03/31/19 10:26 RBC 3.01 M/mm3 (3.65-5.03) L 03/31/19 10:26 Hgb 8.2 gm/dl (11.8-15.2) L 03/31/19 10:26 Hct 26.4 % (35.5-45.6) L 03/31/19 10:26 MCV 88 fl (84-94) 03/31/19 10:26 MCH 27 pg (28-32) L 03/31/19 10:26 MCHC 31 % (32-34) L 03/31/19 10:26 RDW 20.3 % (13.2-15.2) H 03/31/19 10:26 Plt Count 361 K/mm3 (140-440) 03/31/19 10:26 Lymph % (Auto) 13.3 % (13.4-35.0) L 03/31/19 10:26 Garrard % (Auto) 6.5 % (0.0-7.3) 03/31/19 10: Eos % (Auto) 7.2 % (0.0-4.3) H 03/31/19 10: Baso % (Auto) 0.9 % (0.0-1.8) 03/31/19 10: Lymph # 1.1 K/mm3 (1.2-5.4) L 03/31/19 10: Garrard # 0.5 K/mm3 (0.0-0.8) 03/31/19 10: Eos # 0.6 K/mm3 (0.0-0.4) H 03/31/19 10: Baso # 0.1 K/mm3 (0.0-0.1) 03/31/19 10: Add Manual Diff Complete 03/21/19 06:30 Total Counted 100 03/21/19 06:30 Seg Neutrophils % 72.1 % (40.0-70.0) H 03/31/19 10: Seg Neuts % (Manual) 81.0 % (40.0-70.0) H 03/21/19 06:30 0 % 03/21/19 06:30 8.0 % (13.4-35.0) L 03/21/19 06:30 Reactive Lymphs % (Man) 0 % 03/21/19 06:30 1.0 % (0.0-7.3) 03/21/19 06:30 8.0 % (0.0-4.3) H 03/21/19 06:30 1.0 % (0.0-1.8) 03/21/19 06:30 1.0 % 03/21/19 06:30 0 % 03/21/19 06:30 0 % 03/21/19 06:30 0 % 03/21/19 06:30 Nucleated RBC % Not Reportable 03/21/19 06:30 Seg Neutrophils # 6.0 K/mm3 (1.8-7.7) 03/31/19 10: Seg Neutrophils # Man 6.7 K/mm3 (1.8-7.7) 03/21/19 06:30 Band Neutrophils # 0.0 K/mm3 03/21/19 06:30 0.7 K/mm3 (1.2-5.4) L 03/21/19 06:30 Abs React Lymphs (Man) 0.0 K/mm3 03/21/19 06:30 0.1 K/mm3 (0.0-0.8) 03/21/19 06:30 0.7 K/mm3 (0.0-0.4) H 03/21/19 06:30 0.1 K/mm3 (0.0-0.1) 03/21/19 06:30 0.1 K/mm3 03/21/19 06:30 0.0 K/mm3 03/21/19 06:30 0.0 K/mm3 03/21/19 06:30 Blast Cells # 0.0 K/mm3 03/21/19 06:30 WBC Morphology Not Reportable 03/21/19 06:30 Hypersegmented Neuts Not Reportable 03/21/19 06:30 Hyposegmented Neuts Not Reportable 03/21/19 06:30 Hypogranular Neuts Not Reportable 03/21/19 06:30 Not Reportable 03/21/19 06:30 Not Reportable 03/21/19 06:30 Not Reportable 03/21/19 06:30 Not Reportable 03/21/19 06:30 Not Reportable 03/21/19 06:30 Not Reportable 03/21/19 06:30 Consistent w auto 03/21/19 06:30 Not Reportable 03/21/19 06:30 Plt Clumps, EDTA Not Reportable 03/21/19 06:30 Not Reportable 03/21/19 06:30 Not Reportable 03/21/19 06:30 Not Reportable 03/21/19 06:30 Plt Morphology Comment Not Reportable 03/21/19 06:30 RBC Morphology Not Reportable 03/21/19 06:30 Dimorphic RBCs Not Reportable 03/21/19 06:30 Not Reportable 03/21/19 06:30 Few 03/21/19 06:30 Few 03/21/19 06:30 Few 03/21/19 06:30 Not Reportable 03/21/19 06:30 Not Reportable 03/21/19 06:30 Not Reportable 03/21/19 06:30 Not Reportable 03/21/19 06:30 Not Reportable 03/21/19 06:30 1+ 03/21/19 06:30 Not Reportable 03/21/19 06:30 Few 03/21/19 06:30 Not Reportable 03/21/19 06:30 Not Reportable 03/21/19 06:30 Not Reportable 03/21/19 06:30 Not Reportable 03/21/19 06:30 Not Reportable 03/21/19 06:30 Not Reportable 03/21/19 06:30 Not Reportable 03/21/19 06:30 Acanthocytes (Spur) Not Reportable 03/21/19 06:30 Rouleaux Not Reportable 03/21/19 06:30 Not Reportable 03/21/19 06:30 Not Reportable 03/21/19 06:30 Not Reportable 03/21/19 06:30 Not Reportable 03/21/19 06:30 Hem Pathologist Commnt No 03/21/19 06:30 PT 16.3 Sec. (12.2-14.9) H 03/01/19 09:39 INR 1.35 (0.87-1.13) H 03/01/19 09:39 APTT 33.7 Sec. (24.2-36.6) 02/21/19 18:30 2987.82 ng/mlDDU (0-234) H 02/22/19 05:54 POC ABG pH 7.510 (7.35-7.45) H 03/18/19 06:38 ABG pH 7.424 pH Units (7.350-7.450) 03/19/19 04:23 POC ABG pCO2 38.9 (35-45) 03/18/19 06:38 ABG pCO2 48.0 mm Hg 03/19/19 04:23 POC ABG pO2 164 (80-105) H 03/18/19 06:38 ABG pO2 78.3 mm Hg (80.0-90.0) L 03/19/19 04:23 POC ABG HCO3 31.0 (22-26 mml/L) 03/18/19 06:38 ABG HCO3 30.7 mmol/L (20.0-26.0) H 03/19/19 04:23 POC ABG Total CO2 32 (23-27mmol/L) 03/18/19 06:38 POC ABG O2 Sat 100 03/18/19 06:38 ABG O2 Saturation 97.0 % (95.0-99.0) 03/19/19 04:23 ABG O2 Content 7.9 (0.0-44) 03/19/19 04:23 POC ABG Base Excess 8 ((-2) - (+3)mmol/L) 03/18/19 06:38 ABG Base Excess 5.8 mmol/L (-2.0-3.0) H 03/19/19 04:23 ABG Hemoglobin 5.8 gm/dl (14.0-18.0) L 03/19/19 04:23 ABG Carboxyhemoglobin 2.0 % (0.0-5.0) 03/19/19 04:23 ABG Methemoglobin 0.4 % (0.0-1.5) 03/19/19 04:23 94.6 % (95.0-99.0) L 03/19/19 04:23 35 % 03/19/19 04:23 Sodium 143 mmol/L (137-145) 03/31/19 10:26 Potassium 4.1 mmol/L (3.6-5.0) 03/31/19 10:26 Chloride 96.9 mmol/L (98-107) L 03/31/19 10:26 Carbon Dioxide 33 mmol/L (22-30) H 03/31/19 10:26 17 mmol/L 03/31/19 10:26 BUN 37 mg/dL (9-20) H 03/31/19 10:26 2.4 mg/dL (0.8-1.5) H 03/31/19 10:26 Estimated GFR 33 ml/min 03/31/19 10:26 15 % 03/31/19 10:26 Glucose 86 mg/dL (75-100) 03/31/19 10:26 POC Glucose 114 (70-105) H 04/10/19 06:34 Lactic Acid 1.00 mmol/L (0.7-2.0) 02/21/19 20:58 Calcium 10.3 mg/dL (8.4-10.2) H 03/31/19 10:26 Phosphorus 4.30 mg/dL (2.5-4.5) D 03/31/19 10:26 Magnesium 2.70 mg/dL (1.7-2.3) H 03/30/19 10:13 0.20 mg/dL (0.1-1.2) 03/30/19 10:13 AST 16 units/L (5-40) 03/30/19 10:13 ALT 11 units/L (7-56) 03/30/19 10:13 185 units/L (35-129) H 03/30/19 10:13 28.0 umol/L (25-60) 02/21/19 20:04 64 units/L (55-170) 02/22/19 03:42 CK-MB (CK-2) 3.7 ng/mL (0.0-4.0) 02/22/19 03:42 CK-MB (CK-2) Rel Index 5.7 (0-4) H 02/22/19 03:42 0.193 ng/mL (0.00-0.029) H* 02/22/19 03:42 6.9 g/dL (6.3-8.2) 03/30/19 10:13 2.6 g/dL (3.9-5) L 03/30/19 10:13 0.6 % 03/30/19 10:13 Triglycerides 51 mg/dL (2-149) 02/21/19 18:30 Cholesterol 82 mg/dL (50-199) 02/21/19 18:30 36 mg/dL (50-130) L 02/21/19 18:30 40 mg/dL (40-59) 02/21/19 18:30 2.05 % 02/21/19 18:30 TSH 2.760 mlU/mL (0.270-4.200) 02/21/19 20:04 PTH Intact 267.6 pg/mL (15-65) H 03/02/19 05:15 Salicylates < 0.3 mg/dL (2.8-20.0) L 02/21/19 20:04 Acetaminophen < 5.0 ug/mL (10.0-30.0) L 02/21/19 20:04 Hepatitis A IgM Ab Non-reactive (NonReactive) 03/31/19 22:56 Hep Bs Antigen Non-reactive (Negative) 03/31/19 22:56 Hep B Core IgM Ab Non-reactive (NonReactive) 03/31/19 22:56 Non-reactive (NonReactive) 03/31/19 22:56 Blood Type O POSITIVE 03/22/19 08:48 Antibody Screen Negative 03/22/19 08:48 Crossmatch See Detail 03/22/19 08:48 Active Medications - Current Medications Current Medications: Generic Name Dose Route Start Last Admin Trade Name Freq PRN Reason Stop Dose Admin Albuterol/Ipratropium 1 ampul 02/24/19 20:00 04/10/19 07:39 Duoneb *Not For Prn Use* IH 1 ampul TIDRT SANCHEZ Administration Lipase/Protease/Amylase 1 each 03/05/19 14:04 04/02/19 21:[address] 10,500 Unit FEEDTUBE 1 each PRN PRN Administration For Clogged Feeding Tube Epoetin Solitario 20,000 unit 03/24/19 11:17 04/08/19 10:56 Procrit IV 20,000 unit UMA PRN Administration hemodialysis Famotidine 20 mg 02/23/19 10:00 04/09/19 12:26 Pepcid PO 20 mg DAILY SANCHEZ Administration Hydrophilic Ointment 1 applic 02/21/19 18:24 03/05/19 08:16 Vaseline Lip Therapy TP 1 applic Q2HR PRN Administration Dry Lips Sodium Chloride 100 mls @ 999 mls/hr 02/26/19 09:00 Nacl 0.9% IV UMA PRN Hypotension Insulin Human Regular 0 units 02/26/19 12:00 04/10/19 07:34 Humulin R SUB-Q Not Given Q6HR [facility] Protocol Metoprolol Tartrate 2.5 mg 02/28/19 12:06 03/15/19 05:15 Lopressor IV 2.5 mg Q4HR PRN Administration Tachycardia Multi-Ingred Cream/Lotion/Oil/Oint 1 applic 02/21/19 18:24 03/29/19 21:40 Artificial Tears Ophth Oint OU 1 applic Q4HR PRN Administration Dry Eye(s) Risperidone 1 mg 02/25/19 13:00 04/09/19 12:25 Risperdal PO 1 mg DAILY SANCHEZ Administration Scopolamine 1 each 03/13/19 04:00 04/09/19 04:20 Transderm-Scop TD 1 each Q3D SANCHEZ Administration Sertraline HCl 100 mg 02/25/19 13:00 04/09/19 12:25 Zoloft PO 100 mg DAILY SANCHEZ Administration Sodium Hypochlorite 1 applic 04/01/19 13:00 04/09/19 12:26 Dakin's Half Strength TP 1 applicatio BID SANCHEZ Administration Nutrition/Malnutrition Assess - Dietary Evaluation Nutrition/Malnutrition Findings: Nutrition Notes Start: 02/22/19 12:51 Freq: Status: Active Protocol: Document 04/03/19 12:20 RS (Rec: 04/03/19 12:27 RS [id number]) Co-Sign 04/03/19 12:20 LP Nutrition Notes Initial or Follow up Reassessment Current Diagnosis Diabetes,Hypertension Other Pertinent Diagnosis Sacral PU, ESRD on HD (T/Thurs /Sat), Schizophrenia,Blind in L eye,S/P trach Current Diet Nepro with Carbsteady 1.8 at 50 ml/hr Labs/Tests Reviewed Pertinent Medications Reviewed Height 5 ft 10 in Weight 74.7 kg [place] Body Weight (kg) 75.45 BMI 23.6 Subjective/Other Information Nepro running at 50 ml/hr at time of visit. Pt is tolerating TF. Percent of energy/protein needs met: 96%/100% Burn Absent Trauma Absent #2 Nutrition Diagnosis Increased nutrient needs ( specify in comment below) Diagnosis Progress(for reassessment Continues documentation) #1 Nutrition Diagnosis Inadequate oral intake Diagnosis Progress(for reassessment Continues documentation) Is patient on ventilator? No Is Patient Ambulatory and/or Out of Bed No [facility] 1857.144 Kcal/Kg value to use for calculation 30 Approximate Energy Requirements Using 2241 kcal/Kg Calculation Used for Recommendations Kcal/kg Additional Notes Protein Needs: 90-112g (1.2-1. 5g/kg) Fluid Needs: 1-1.5 L/day Nutrition Intervention Change Diet Order: Continue TF Nutrition Support: Nepro with Carbsteady 1.8 at 50 ml/hr Flush 200 ml q4hr Kcal 2,160 Protein (gm) 97 Fluid (mL) 872 Add Supplement/Snack (indicate name/kcal Abhilash BID /protein ) Provides kCal: 190 Provides Protein (gm) 5 Goal #1 TF tolerance Goal #2 Continue to meet at least 80% of calorie and protein needs via TF Anticipated Discharge Needs: TF Follow-Up By: 04/10/19 Additional Comments F/U for new TF rate/tolerance
--- NOTE | 2019-04-10 14:03 | Progress Note ---
Assessment and Plan 63 y/o male with multiple medical issues admitted with altered mental status, acute respiratory failure requiring mechanical ventilation No new recommendations for today. Please see below. 1. Finished therapy for Acinetobacter. 2. Continue T-piece 3. HD per renal 4. Awaiting placement. Subjective Date of service: 04/10/19 Principal diagnosis: Respiratory failure, acute on chronic systolic HF, ESRD Interval history: No acute events. Stable Objective Vital Signs - 12hr 04/10/19 04/10/19 04/10/19 03:53 07:39 07:40 Temperature 98.3 F Pulse Rate 75 Pulse Rate [ 89 Anterior Bilateral Throughout] Pulse Rate [ From Monitor] Pulse Rate [ Left Radial] Pulse Rate [ Right Radial] Respiratory 20 Rate Respiratory 18 Rate [Anterior Bilateral Throughout] Blood Pressure 117/52 O2 Sat by Pulse 100 94 Oximetry O2 Sat by Pulse Oximetry [ Assessment] 04/10/19 04/10/19 04/10/19 07:41 08:03 09:40 Temperature 98.8 F Pulse Rate 78 Pulse Rate [ Anterior Bilateral Throughout] Pulse Rate [ From Monitor] Pulse Rate [ Left Radial] Pulse Rate [ Right Radial] Respiratory 18 Rate Respiratory Rate [Anterior Bilateral Throughout] Blood Pressure 127/58 O2 Sat by Pulse 96 98 Oximetry O2 Sat by Pulse 95 Oximetry [ Assessment] 04/10/19 04/10/19 04/10/19 10:00 10:25 10:30 Temperature 98.2 F Pulse Rate 71 75 74 Pulse Rate [ Anterior Bilateral Throughout] Pulse Rate [ 78 From Monitor] Pulse Rate [ 78 Left Radial] Pulse Rate [ 78 Right Radial] Respiratory 18 16 Rate Respiratory Rate [Anterior Bilateral Throughout] Blood Pressure 127/55 125/62 O2 Sat by Pulse 96 Oximetry O2 Sat by Pulse Oximetry [ Assessment] 04/10/19 04/10/19 04/10/19 10:45 11:00 11:15 Temperature Pulse Rate 76 73 74 Pulse Rate [ Anterior Bilateral Throughout] Pulse Rate [ From Monitor] Pulse Rate [ Left Radial] Pulse Rate [ Right Radial] Respiratory Rate Respiratory Rate [Anterior Bilateral Throughout] Blood Pressure 116/57 121/60 118/59 O2 Sat by Pulse Oximetry O2 Sat by Pulse Oximetry [ Assessment] 04/10/19 04/10/19 04/10/19 11:30 11:45 12:00 Temperature Pulse Rate 73 72 76 Pulse Rate [ Anterior Bilateral Throughout] Pulse Rate [ From Monitor] Pulse Rate [ Left Radial] Pulse Rate [ Right Radial] Respiratory Rate Respiratory Rate [Anterior Bilateral Throughout] Blood Pressure 120/61 119/60 125/58 O2 Sat by Pulse Oximetry O2 Sat by Pulse Oximetry [ Assessment] 04/10/19 04/10/19 04/10/19 12:15 12:30 12:45 Temperature Pulse Rate 76 67 71 Pulse Rate [ Anterior Bilateral Throughout] Pulse Rate [ From Monitor] Pulse Rate [ Left Radial] Pulse Rate [ Right Radial] Respiratory Rate Respiratory Rate [Anterior Bilateral Throughout] Blood Pressure 123/60 112/52 112/58 O2 Sat by Pulse Oximetry O2 Sat by Pulse Oximetry [ Assessment] 04/10/19 04/10/19 13:00 13:16 Temperature Pulse Rate 69 Pulse Rate [ 102 H Anterior Bilateral Throughout] Pulse Rate [ From Monitor] Pulse Rate [ Left Radial] Pulse Rate [ Right Radial] Respiratory Rate Respiratory 20 Rate [Anterior Bilateral Throughout] Blood Pressure 121/61 O2 Sat by Pulse Oximetry O2 Sat by Pulse Oximetry [ Assessment] Constitutional: no acute distress, alert Eyes: non-icteric ENT: oropharynx moist Neck: supple Effort: normal Ascultation: Bilateral: diminished breath sounds, other (coarse BS bilaterally) Percussion: Bilateral: not dull Cardiovascular: other (tachy, RR; no mrg) Gastrointestinal: normoactive bowel sounds, soft, non-tender, non-distended, other (ostomy in place, brown stool) Extremities: no cyanosis, no edema, pink and warm Neurologic: other (mild weakness LUE, o/w nonfocal) Psychiatric: other (unable to assess) CBC and BMP: 03/31/19 10:26 03/31/19 10:26 ABG, PT/INR, D-dimer: ABG POC ABG pH 7.510 (7.35-7.45) H 03/18/19 06:38 ABG pH 7.424 pH Units (7.350-7.450) 03/19/19 04:23 POC ABG pCO2 38.9 (35-45) 03/18/19 06:38 ABG pCO2 48.0 mm Hg 03/19/19 04:23 POC ABG pO2 164 (80-105) H 03/18/19 06:38 ABG pO2 78.3 mm Hg (80.0-90.0) L 03/19/19 04:23 POC ABG HCO3 31.0 (22-26 mml/L) 03/18/19 06:38 POC ABG Total CO2 32 (23-27mmol/L) 03/18/19 06:38 POC ABG O2 Sat 100 03/18/19 06:38 ABG O2 Saturation 97.0 % (95.0-99.0) 03/19/19 04:23 PT/INR, D-dimer PT 16.3 Sec. (12.2-14.9) H 03/01/19 09:39 INR 1.35 (0.87-1.13) H 03/01/19 09:39 2987.82 ng/mlDDU (0-234) H 02/22/19 05:54 Abnormal lab findings: Abnormal Labs 02/21/19 02/21/19 02/21/19 18:30 18:30 18:30 WBC RBC 3.26 L Hgb 8.8 L Hct 29.0 L MCH 27 L MCHC 30 L RDW 19.1 H Lymph % (Auto) 6.1 L [place] % (Auto) Eos % (Auto) Lymph # 0.4 L [place] # Eos # Seg Neutrophils % 86.2 H Seg Neuts % (Manual) Lymphocytes % (Manual) Eosinophils % (Manual) Seg Neutrophils # Lymphocytes # (Manual) Eosinophils # (Manual) PT INR D-Dimer POC ABG pH POC ABG pCO2 POC ABG pO2 ABG pO2 ABG HCO3 ABG Base Excess ABG Hemoglobin Oxyhemoglobin Sodium 133 L Potassium 3.3 L Chloride 93.1 L Carbon Dioxide 33 H BUN Creatinine Glucose 161 H POC Glucose Calcium Phosphorus Magnesium ALT Alkaline Phosphatase 136 H Total Creatine Kinase 37 L CK-MB (CK-2) Rel Index Troponin T 0.192 H* Albumin 2.4 L LDL Cholesterol Direct 36 L PTH Intact Salicylates Acetaminophen Crossmatch 02/21/19 02/21/19 02/21/19 18:42 20:04 20:04 WBC RBC Hgb Hct MCH MCHC RDW Lymph % (Auto) [place] % (Auto) Eos % (Auto) Lymph # [place] # Eos # Seg Neutrophils % Seg Neuts % (Manual) Lymphocytes % (Manual) Eosinophils % (Manual) Seg Neutrophils # Lymphocytes # (Manual) Eosinophils # (Manual) PT INR D-Dimer POC ABG pH POC ABG pCO2 56.7 H POC ABG pO2 291 H ABG pO2 ABG HCO3 ABG Base Excess ABG Hemoglobin Oxyhemoglobin Sodium Potassium Chloride Carbon Dioxide BUN Creatinine Glucose POC Glucose Calcium Phosphorus Magnesium ALT Alkaline Phosphatase Total Creatine Kinase CK-MB (CK-2) Rel Index Troponin T Albumin LDL Cholesterol Direct PTH Intact Salicylates < 0.3 L Acetaminophen < 5.0 L Crossmatch 02/21/19 02/22/19 02/22/19 22:35 03:42 03:42 WBC RBC 3.20 L Hgb 8.8 L Hct 27.6 L MCH MCHC RDW 18.9 H Lymph % (Auto) 7.4 L [place] % (Auto) Eos % (Auto) Lymph # 0.7 L [place] # Eos # Seg Neutrophils % 84.7 H Seg Neuts % (Manual) Lymphocytes % (Manual) Eosinophils % (Manual) Seg Neutrophils # Lymphocytes # (Manual) Eosinophils # (Manual) PT INR D-Dimer POC ABG pH POC ABG pCO2 POC ABG pO2 ABG pO2 ABG HCO3 ABG Base Excess ABG Hemoglobin Oxyhemoglobin Sodium 134 L Potassium 2.6 L* D Chloride Carbon Dioxide BUN Creatinine Glucose POC Glucose Calcium Phosphorus Magnesium ALT Alkaline Phosphatase Total Creatine Kinase CK-MB (CK-2) Rel Index 5.2 H Troponin T 0.202 H* Albumin LDL Cholesterol Direct PTH Intact Salicylates Acetaminophen Crossmatch 02/22/19 02/22/19 02/22/19 03:42 05:54 09:04 WBC RBC Hgb Hct MCH MCHC RDW Lymph % (Auto) [place] % (Auto) Eos % (Auto) Lymph # [place] # Eos # Seg Neutrophils % Seg Neuts % (Manual) Lymphocytes % (Manual) Eosinophils % (Manual) Seg Neutrophils # Lymphocytes # (Manual) Eosinophils # (Manual) PT INR D-Dimer 2987.82 H POC ABG pH 7.451 H POC ABG pCO2 POC ABG pO2 ABG pO2 ABG HCO3 ABG Base Excess ABG Hemoglobin Oxyhemoglobin Sodium Potassium Chloride Carbon Dioxide BUN Creatinine Glucose POC Glucose Calcium Phosphorus Magnesium ALT Alkaline Phosphatase Total Creatine Kinase CK-MB (CK-2) Rel Index 5.7 H Troponin T 0.193 H* Albumin LDL Cholesterol Direct PTH Intact Salicylates Acetaminophen Crossmatch 02/22/19 02/22/19 02/23/19 10:36 23:56 00:52 WBC RBC Hgb Hct MCH MCHC RDW Lymph % (Auto) [place] % (Auto) Eos % (Auto) Lymph # [place] # Eos # Seg Neutrophils % Seg Neuts % (Manual) Lymphocytes % (Manual) Eosinophils % (Manual) Seg Neutrophils # Lymphocytes # (Manual) Eosinophils # (Manual) PT INR D-Dimer POC ABG pH POC ABG pCO2 POC ABG pO2 ABG pO2 ABG HCO3 ABG Base Excess ABG Hemoglobin Oxyhemoglobin Sodium Potassium 3.1 L Chloride Carbon Dioxide BUN Creatinine Glucose POC Glucose 58 L 111 H Calcium Phosphorus Magnesium ALT Alkaline Phosphatase Total Creatine Kinase CK-MB (CK-2) Rel Index Troponin T Albumin LDL Cholesterol Direct PTH Intact Salicylates Acetaminophen Crossmatch 02/23/19 02/23/19 02/23/19 05:00 06:35 14:26 WBC RBC Hgb Hct MCH MCHC RDW Lymph % (Auto) [place] % (Auto) Eos % (Auto) Lymph # [place] # Eos # Seg Neutrophils % Seg Neuts % (Manual) Lymphocytes % (Manual) Eosinophils % (Manual) Seg Neutrophils # Lymphocytes # (Manual) Eosinophils # (Manual) PT INR D-Dimer POC ABG pH POC ABG pCO2 POC ABG pO2 ABG pO2 ABG HCO3 ABG Base Excess ABG Hemoglobin Oxyhemoglobin Sodium 135 L Potassium 3.1 L Chloride Carbon Dioxide BUN 21 H Creatinine 2.0 H Glucose 57 L POC Glucose 64 L 62 L Calcium Phosphorus Magnesium ALT Alkaline Phosphatase Total Creatine Kinase CK-MB (CK-2) Rel Index Troponin T Albumin LDL Cholesterol Direct PTH Intact Salicylates Acetaminophen Crossmatch 02/24/19 02/24/19 02/24/19 02:11 04:12 04:55 WBC RBC 2.84 L Hgb 7.8 L Hct 24.5 L MCH MCHC RDW 19.5 H Lymph % (Auto) [place] % (Auto) Eos % (Auto) Lymph # [place] # Eos # Seg Neutrophils % Seg Neuts % (Manual) Lymphocytes % (Manual) Eosinophils % (Manual) Seg Neutrophils # Lymphocytes # (Manual) Eosinophils # (Manual) PT INR D-Dimer POC ABG pH 7.511 H POC ABG pCO2 33.9 L POC ABG pO2 62 L ABG pO2 ABG HCO3 ABG Base Excess ABG Hemoglobin Oxyhemoglobin Sodium Potassium Chloride Carbon Dioxide BUN Creatinine Glucose POC Glucose 69 L Calcium Phosphorus Magnesium ALT Alkaline Phosphatase Total Creatine Kinase CK-MB (CK-2) Rel Index Troponin T Albumin LDL Cholesterol Direct PTH Intact Salicylates Acetaminophen Crossmatch 02/24/19 02/24/19 02/25/19 04:55 05:41 04:45 WBC RBC Hgb Hct MCH MCHC RDW Lymph % (Auto) [place] % (Auto) Eos % (Auto) Lymph # [place] # Eos # Seg Neutrophils % Seg Neuts % (Manual) Lymphocytes % (Manual) Eosinophils % (Manual) Seg Neutrophils # Lymphocytes # (Manual) Eosinophils # (Manual) PT INR D-Dimer POC ABG pH 7.466 H POC ABG pCO2 POC ABG pO2 75 L ABG pO2 ABG HCO3 ABG Base Excess ABG Hemoglobin Oxyhemoglobin Sodium Potassium Chloride Carbon Dioxide BUN Creatinine 1.8 H Glucose 73 L POC Glucose 127 H Calcium Phosphorus Magnesium ALT Alkaline Phosphatase Total Creatine Kinase CK-MB (CK-2) Rel Index Troponin T Albumin LDL Cholesterol Direct PTH Intact Salicylates Acetaminophen Crossmatch 02/25/19 02/25/19 02/26/19 16:34 21:33 03:45 WBC RBC 2.96 L Hgb 8.0 L Hct 25.8 L MCH 27 L MCHC 31 L RDW 20.0 H Lymph % (Auto) [place] % (Auto) Eos % (Auto) Lymph # [place] # Eos # Seg Neutrophils % Seg Neuts % (Manual) Lymphocytes % (Manual) Eosinophils % (Manual) Seg Neutrophils # Lymphocytes # (Manual) Eosinophils # (Manual) PT INR D-Dimer POC ABG pH POC ABG pCO2 POC ABG pO2 ABG pO2 ABG HCO3 ABG Base Excess ABG Hemoglobin Oxyhemoglobin Sodium Potassium Chloride Carbon Dioxide BUN Creatinine Glucose POC Glucose 141 H 106 H Calcium Phosphorus Magnesium ALT Alkaline Phosphatase Total Creatine Kinase CK-MB (CK-2) Rel Index Troponin T Albumin LDL Cholesterol Direct PTH Intact Salicylates Acetaminophen Crossmatch 02/26/19 02/26/19 02/26/19 03:45 04:13 07:53 WBC RBC Hgb Hct MCH MCHC RDW Lymph % (Auto) [place] % (Auto) Eos % (Auto) Lymph # [place] # Eos # Seg Neutrophils % Seg Neuts % (Manual) Lymphocytes % (Manual) Eosinophils % (Manual) Seg Neutrophils # Lymphocytes # (Manual) Eosinophils # (Manual) PT INR D-Dimer POC ABG pH 7.470 H POC ABG pCO2 POC ABG pO2 ABG pO2 ABG HCO3 ABG Base Excess ABG Hemoglobin Oxyhemoglobin Sodium Potassium Chloride Carbon Dioxide BUN Creatinine 1.8 H Glucose POC Glucose 110 H Calcium Phosphorus Magnesium ALT Alkaline Phosphatase Total Creatine Kinase CK-MB (CK-2) Rel Index Troponin T Albumin LDL Cholesterol Direct PTH Intact Salicylates Acetaminophen Crossmatch 02/26/19 02/26/19 02/27/19 11:56 17:43 00:12 WBC RBC Hgb Hct MCH MCHC RDW Lymph % (Auto) [place] % (Auto) Eos % (Auto) Lymph # [place] # Eos # Seg Neutrophils % Seg Neuts % (Manual) Lymphocytes % (Manual) Eosinophils % (Manual) Seg Neutrophils # Lymphocytes # (Manual) Eosinophils # (Manual) PT INR D-Dimer POC ABG pH POC ABG pCO2 POC ABG pO2 ABG pO2 ABG HCO3 ABG Base Excess ABG Hemoglobin Oxyhemoglobin Sodium Potassium Chloride Carbon Dioxide BUN Creatinine Glucose POC Glucose 112 H 127 H 127 H Calcium Phosphorus Magnesium ALT Alkaline Phosphatase Total Creatine Kinase CK-MB (CK-2) Rel Index Troponin T Albumin LDL Cholesterol Direct PTH Intact Salicylates Acetaminophen Crossmatch 02/27/19 02/27/19 02/27/19 04:35 13:15 18:02 WBC RBC Hgb Hct MCH MCHC RDW Lymph % (Auto) [place] % (Auto) Eos % (Auto) Lymph # [place] # Eos # Seg Neutrophils % Seg Neuts % (Manual) Lymphocytes % (Manual) Eosinophils % (Manual) Seg Neutrophils # Lymphocytes # (Manual) Eosinophils # (Manual) PT INR D-Dimer POC ABG pH 7.483 H POC ABG pCO2 POC ABG pO2 61 L ABG pO2 ABG HCO3 ABG Base Excess ABG Hemoglobin Oxyhemoglobin Sodium Potassium Chloride Carbon Dioxide BUN Creatinine Glucose POC Glucose 143 H 106 H Calcium Phosphorus Magnesium ALT Alkaline Phosphatase Total Creatine Kinase CK-MB (CK-2) Rel Index Troponin T Albumin LDL Cholesterol Direct PTH Intact Salicylates Acetaminophen Crossmatch 02/28/19 02/28/19 02/28/19 05:50 11:59 17:52 WBC RBC Hgb Hct MCH MCHC RDW Lymph % (Auto) [place] % (Auto) Eos % (Auto) Lymph # [place] # Eos # Seg Neutrophils % Seg Neuts % (Manual) Lymphocytes % (Manual) Eosinophils % (Manual) Seg Neutrophils # Lymphocytes # (Manual) Eosinophils # (Manual) PT INR D-Dimer POC ABG pH POC ABG pCO2 POC ABG pO2 ABG pO2 ABG HCO3 ABG Base Excess ABG Hemoglobin Oxyhemoglobin Sodium Potassium Chloride Carbon Dioxide BUN Creatinine Glucose POC Glucose 134 H 128 H 142 H Calcium Phosphorus Magnesium ALT Alkaline Phosphatase Total Creatine Kinase CK-MB (CK-2) Rel Index Troponin T Albumin LDL Cholesterol Direct PTH Intact Salicylates Acetaminophen Crossmatch 02/28/19 03/01/19 03/01/19 23:13 05:40 09:39 WBC RBC Hgb Hct MCH MCHC RDW Lymph % (Auto) [place] % (Auto) Eos % (Auto) Lymph # [place] # Eos # Seg Neutrophils % Seg Neuts % (Manual) Lymphocytes % (Manual) Eosinophils % (Manual) Seg Neutrophils # Lymphocytes # (Manual) Eosinophils # (Manual) PT 16.3 H INR 1.35 H D-Dimer POC ABG pH POC ABG pCO2 POC ABG pO2 ABG pO2 ABG HCO3 ABG Base Excess ABG Hemoglobin Oxyhemoglobin Sodium Potassium Chloride Carbon Dioxide BUN Creatinine Glucose POC Glucose 112 H 111 H Calcium Phosphorus Magnesium ALT Alkaline Phosphatase Total Creatine Kinase CK-MB (CK-2) Rel Index Troponin T Albumin LDL Cholesterol Direct PTH Intact Salicylates Acetaminophen Crossmatch 03/01/19 03/01/19 03/01/19 11:56 13:54 17:59 WBC RBC Hgb Hct MCH MCHC RDW Lymph % (Auto) [place] % (Auto) Eos % (Auto) Lymph # [place] # Eos # Seg Neutrophils % Seg Neuts % (Manual) Lymphocytes % (Manual) Eosinophils % (Manual) Seg Neutrophils # Lymphocytes # (Manual) Eosinophils # (Manual) PT INR D-Dimer POC ABG pH POC ABG pCO2 POC ABG pO2 ABG pO2 ABG HCO3 ABG Base Excess ABG Hemoglobin Oxyhemoglobin Sodium Potassium Chloride Carbon Dioxide BUN 33 H Creatinine 2.8 H D Glucose 176 H POC Glucose 199 H 147 H Calcium Phosphorus Magnesium ALT Alkaline Phosphatase Total Creatine Kinase CK-MB (CK-2) Rel Index Troponin T Albumin LDL Cholesterol Direct PTH Intact Salicylates Acetaminophen Crossmatch 03/02/19 03/02/19 03/02/19 05:15 05:15 05:15 WBC RBC 2.73 L Hgb 7.4 L Hct 23.0 L MCH 27 L MCHC RDW 19.9 H Lymph % (Auto) [place] % (Auto) 7.9 H Eos % (Auto) 7.6 H Lymph # 1.0 L [place] # Eos # 0.5 H Seg Neutrophils % Seg Neuts % (Manual) Lymphocytes % (Manual) Eosinophils % (Manual) Seg Neutrophils # Lymphocytes # (Manual) Eosinophils # (Manual) PT INR D-Dimer POC ABG pH POC ABG pCO2 POC ABG pO2 ABG pO2 ABG HCO3 ABG Base Excess ABG Hemoglobin Oxyhemoglobin Sodium Potassium Chloride Carbon Dioxide BUN 43 H Creatinine 3.2 H Glucose POC Glucose Calcium Phosphorus 2.30 L Magnesium ALT Alkaline Phosphatase Total Creatine Kinase CK-MB (CK-2) Rel Index Troponin T Albumin LDL Cholesterol Direct PTH Intact 267.6 H Salicylates Acetaminophen Crossmatch 03/02/19 03/02/19 03/03/19 12:32 18:20 13:30 WBC RBC Hgb Hct MCH MCHC RDW Lymph % (Auto) [place] % (Auto) Eos % (Auto) Lymph # [place] # Eos # Seg Neutrophils % Seg Neuts % (Manual) Lymphocytes % (Manual) Eosinophils % (Manual) Seg Neutrophils # Lymphocytes # (Manual) Eosinophils # (Manual) PT INR D-Dimer POC ABG pH POC ABG pCO2 POC ABG pO2 ABG pO2 ABG HCO3 ABG Base Excess ABG Hemoglobin Oxyhemoglobin Sodium Potassium Chloride 97.3 L Carbon Dioxide BUN 26 H Creatinine 2.2 H Glucose 73 L POC Glucose 111 H 156 H Calcium Phosphorus Magnesium ALT Alkaline Phosphatase Total Creatine Kinase CK-MB (CK-2) Rel Index Troponin T Albumin LDL Cholesterol Direct PTH Intact Salicylates Acetaminophen Crossmatch 03/04/19 03/04/19 03/04/19 00:02 05:37 05:40 WBC RBC 2.63 L Hgb 7.2 L Hct 22.2 L MCH MCHC RDW 20.2 H Lymph % (Auto) 10.5 L [place] % (Auto) Eos % (Auto) 4.6 H Lymph # 0.7 L [place] # Eos # Seg Neutrophils % 76.9 H Seg Neuts % (Manual) Lymphocytes % (Manual) Eosinophils % (Manual) Seg Neutrophils # Lymphocytes # (Manual) Eosinophils # (Manual) PT INR D-Dimer POC ABG pH POC ABG pCO2 POC ABG pO2 ABG pO2 ABG HCO3 ABG Base Excess ABG Hemoglobin Oxyhemoglobin Sodium Potassium Chloride Carbon Dioxide BUN Creatinine Glucose POC Glucose 136 H 123 H Calcium Phosphorus Magnesium ALT Alkaline Phosphatase Total Creatine Kinase CK-MB (CK-2) Rel Index Troponin T Albumin LDL Cholesterol Direct PTH Intact Salicylates Acetaminophen Crossmatch 03/04/19 03/04/19 03/04/19 05:40 11:39 23:20 WBC RBC Hgb Hct MCH MCHC RDW Lymph % (Auto) [place] % (Auto) Eos % (Auto) Lymph # [place] # Eos # Seg Neutrophils % Seg Neuts % (Manual) Lymphocytes % (Manual) Eosinophils % (Manual) Seg Neutrophils # Lymphocytes # (Manual) Eosinophils # (Manual) PT INR D-Dimer POC ABG pH POC ABG pCO2 POC ABG pO2 ABG pO2 ABG HCO3 ABG Base Excess ABG Hemoglobin Oxyhemoglobin Sodium Potassium Chloride Carbon Dioxide BUN 34 H Creatinine 2.7 H Glucose 114 H POC Glucose 175 H 151 H Calcium Phosphorus Magnesium ALT Alkaline Phosphatase Total Creatine Kinase CK-MB (CK-2) Rel Index Troponin T Albumin LDL Cholesterol Direct PTH Intact Salicylates Acetaminophen Crossmatch 03/05/19 03/05/19 03/05/19 05:37 12:08 17:11 WBC RBC Hgb Hct MCH MCHC RDW Lymph % (Auto) [place] % (Auto) Eos % (Auto) Lymph # [place] # Eos # Seg Neutrophils % Seg Neuts % (Manual) Lymphocytes % (Manual) Eosinophils % (Manual) Seg Neutrophils # Lymphocytes # (Manual) Eosinophils # (Manual) PT INR D-Dimer POC ABG pH POC ABG pCO2 POC ABG pO2 ABG pO2 ABG HCO3 ABG Base Excess ABG Hemoglobin Oxyhemoglobin Sodium Potassium Chloride Carbon Dioxide BUN Creatinine Glucose POC Glucose 134 H 135 H 135 H Calcium Phosphorus Magnesium ALT Alkaline Phosphatase Total Creatine Kinase CK-MB (CK-2) Rel Index Troponin T Albumin LDL Cholesterol Direct PTH Intact Salicylates Acetaminophen Crossmatch 03/06/19 03/06/19 03/06/19 00:16 13:05 18:09 WBC RBC Hgb Hct MCH MCHC RDW Lymph % (Auto) [place] % (Auto) Eos % (Auto) Lymph # [place] # Eos # Seg Neutrophils % Seg Neuts % (Manual) Lymphocytes % (Manual) Eosinophils % (Manual) Seg Neutrophils # Lymphocytes # (Manual) Eosinophils # (Manual) PT INR D-Dimer POC ABG pH POC ABG pCO2 POC ABG pO2 ABG pO2 ABG HCO3 ABG Base Excess ABG Hemoglobin Oxyhemoglobin Sodium Potassium Chloride Carbon Dioxide BUN Creatinine Glucose POC Glucose 117 H 113 H 131 H Calcium Phosphorus Magnesium ALT Alkaline Phosphatase Total Creatine Kinase CK-MB (CK-2) Rel Index Troponin T Albumin LDL Cholesterol Direct PTH Intact Salicylates Acetaminophen Crossmatch 03/07/19 03/08/19 03/08/19 05:25 05:33 16:00 WBC RBC 2.44 L Hgb 6.6 L Hct 20.8 L MCH 27 L MCHC RDW 19.2 H Lymph % (Auto) [place] % (Auto) Eos % (Auto) 8.6 H Lymph # 0.8 L [place] # Eos # 0.5 H Seg Neutrophils % 70.7 H Seg Neuts % (Manual) Lymphocytes % (Manual) Eosinophils % (Manual) Seg Neutrophils # Lymphocytes # (Manual) Eosinophils # (Manual) PT INR D-Dimer POC ABG pH POC ABG pCO2 POC ABG pO2 ABG pO2 ABG HCO3 ABG Base Excess ABG Hemoglobin Oxyhemoglobin Sodium Potassium Chloride Carbon Dioxide BUN Creatinine Glucose POC Glucose 106 H 108 H Calcium Phosphorus Magnesium ALT Alkaline Phosphatase Total Creatine Kinase CK-MB (CK-2) Rel Index Troponin T Albumin LDL Cholesterol Direct PTH Intact Salicylates Acetaminophen Crossmatch 03/08/19 03/08/19 03/08/19 16:00 18:38 Unknown WBC RBC Hgb Hct MCH MCHC RDW Lymph % (Auto) [place] % (Auto) Eos % (Auto) Lymph # [place] # Eos # Seg Neutrophils % Seg Neuts % (Manual) Lymphocytes % (Manual) Eosinophils % (Manual) Seg Neutrophils # Lymphocytes # (Manual) Eosinophils # (Manual) PT INR D-Dimer POC ABG pH POC ABG pCO2 POC ABG pO2 ABG pO2 ABG HCO3 ABG Base Excess ABG Hemoglobin Oxyhemoglobin Sodium Potassium 5.4 H D Chloride Carbon Dioxide BUN 47 H Creatinine 2.6 H Glucose POC Glucose 123 H Calcium Phosphorus Magnesium ALT < 5 L Alkaline Phosphatase Total Creatine Kinase CK-MB (CK-2) Rel Index Troponin T Albumin 2.2 L LDL Cholesterol Direct PTH Intact Salicylates Acetaminophen Crossmatch See Detail 03/09/19 03/09/19 03/09/19 10:48 12:28 13:53 WBC RBC 2.85 L Hgb 7.7 L Hct 24.2 L MCH 27 L MCHC RDW 18.7 H Lymph % (Auto) [place] % (Auto) Eos % (Auto) Lymph # [place] # Eos # Seg Neutrophils % Seg Neuts % (Manual) Lymphocytes % (Manual) Eosinophils % (Manual) Seg Neutrophils # Lymphocytes # (Manual) Eosinophils # (Manual) PT INR D-Dimer POC ABG pH POC ABG pCO2 POC ABG pO2 ABG pO2 ABG HCO3 30.5 H ABG Base Excess 5.6 H ABG Hemoglobin 8.1 L Oxyhemoglobin 93.8 L Sodium Potassium Chloride Carbon Dioxide BUN Creatinine Glucose POC Glucose 114 H Calcium Phosphorus Magnesium ALT Alkaline Phosphatase Total Creatine Kinase CK-MB (CK-2) Rel Index Troponin T Albumin LDL Cholesterol Direct PTH Intact Salicylates Acetaminophen Crossmatch 03/09/19 03/09/19 03/10/19 17:58 23:53 12:01 WBC RBC Hgb Hct MCH MCHC RDW Lymph % (Auto) [place] % (Auto) Eos % (Auto) Lymph # [place] # Eos # Seg Neutrophils % Seg Neuts % (Manual) Lymphocytes % (Manual) Eosinophils % (Manual) Seg Neutrophils # Lymphocytes # (Manual) Eosinophils # (Manual) PT INR D-Dimer POC ABG pH POC ABG pCO2 POC ABG pO2 ABG pO2 ABG HCO3 ABG Base Excess ABG Hemoglobin Oxyhemoglobin Sodium Potassium Chloride Carbon Dioxide BUN Creatinine Glucose POC Glucose 108 H 128 H 144 H Calcium Phosphorus Magnesium ALT Alkaline Phosphatase Total Creatine Kinase CK-MB (CK-2) Rel Index Troponin T Albumin LDL Cholesterol Direct PTH Intact Salicylates Acetaminophen Crossmatch 03/10/19 03/11/19 03/11/19 16:50 00:24 05:02 WBC RBC Hgb Hct MCH MCHC RDW Lymph % (Auto) [place] % (Auto) Eos % (Auto) Lymph # [place] # Eos # Seg Neutrophils % Seg Neuts % (Manual) Lymphocytes % (Manual) Eosinophils % (Manual) Seg Neutrophils # Lymphocytes # (Manual) Eosinophils # (Manual) PT INR D-Dimer POC ABG pH POC ABG pCO2 POC ABG pO2 ABG pO2 ABG HCO3 ABG Base Excess ABG Hemoglobin Oxyhemoglobin Sodium Potassium Chloride Carbon Dioxide BUN Creatinine Glucose POC Glucose 147 H 123 H 120 H Calcium Phosphorus Magnesium ALT Alkaline Phosphatase Total Creatine Kinase CK-MB (CK-2) Rel Index Troponin T Albumin LDL Cholesterol Direct PTH Intact Salicylates Acetaminophen Crossmatch 03/11/19 03/11/19 03/11/19 11:56 12:20 18:37 WBC RBC Hgb Hct MCH MCHC RDW Lymph % (Auto) [place] % (Auto) Eos % (Auto) Lymph # [place] # Eos # Seg Neutrophils % Seg Neuts % (Manual) Lymphocytes % (Manual) Eosinophils % (Manual) Seg Neutrophils # Lymphocytes # (Manual) Eosinophils # (Manual) PT INR D-Dimer POC ABG pH POC ABG pCO2 POC ABG pO2 ABG pO2 ABG HCO3 ABG Base Excess ABG Hemoglobin Oxyhemoglobin Sodium Potassium 5.2 H Chloride Carbon Dioxide BUN Creatinine Glucose POC Glucose 123 H 125 H Calcium Phosphorus Magnesium ALT Alkaline Phosphatase Total Creatine Kinase CK-MB (CK-2) Rel Index Troponin T Albumin LDL Cholesterol Direct PTH Intact Salicylates Acetaminophen Crossmatch 03/11/19 03/12/19 03/12/19 22:52 12:04 18:25 WBC RBC Hgb Hct MCH MCHC RDW Lymph % (Auto) [place] % (Auto) Eos % (Auto) Lymph # [place] # Eos # Seg Neutrophils % Seg Neuts % (Manual) Lymphocytes % (Manual) Eosinophils % (Manual) Seg Neutrophils # Lymphocytes # (Manual) Eosinophils # (Manual) PT INR D-Dimer POC ABG pH POC ABG pCO2 POC ABG pO2 ABG pO2 ABG HCO3 ABG Base Excess ABG Hemoglobin Oxyhemoglobin Sodium Potassium Chloride Carbon Dioxide BUN Creatinine Glucose POC Glucose 110 H 106 H 118 H Calcium Phosphorus Magnesium ALT Alkaline Phosphatase Total Creatine Kinase CK-MB (CK-2) Rel Index Troponin T Albumin LDL Cholesterol Direct PTH Intact Salicylates Acetaminophen Crossmatch 03/12/19 03/13/19 03/13/19 23:36 04:38 04:38 WBC RBC 2.95 L Hgb 7.9 L Hct 24.9 L MCH 27 L MCHC RDW 19.9 H Lymph % (Auto) 11.1 L [place] % (Auto) 8.1 H Eos % (Auto) 4.4 H Lymph # 0.9 L [place] # Eos # Seg Neutrophils % 75.4 H Seg Neuts % (Manual) Lymphocytes % (Manual) Eosinophils % (Manual) Seg Neutrophils # Lymphocytes # (Manual) Eosinophils # (Manual) PT INR D-Dimer POC ABG pH POC ABG pCO2 POC ABG pO2 ABG pO2 ABG HCO3 ABG Base Excess ABG Hemoglobin Oxyhemoglobin Sodium 136 L Potassium 5.1 H Chloride 93.8 L Carbon Dioxide BUN 48 H Creatinine 2.7 H Glucose 102 H POC Glucose 115 H Calcium Phosphorus Magnesium ALT < 5 L Alkaline Phosphatase 143 H Total Creatine Kinase CK-MB (CK-2) Rel Index Troponin T Albumin 2.5 L LDL Cholesterol Direct PTH Intact Salicylates Acetaminophen Crossmatch 03/13/19 03/13/19 03/13/19 05:33 13:37 18:03 WBC RBC Hgb Hct MCH MCHC RDW Lymph % (Auto) [place] % (Auto) Eos % (Auto) Lymph # [place] # Eos # Seg Neutrophils % Seg Neuts % (Manual) Lymphocytes % (Manual) Eosinophils % (Manual) Seg Neutrophils # Lymphocytes # (Manual) Eosinophils # (Manual) PT INR D-Dimer POC ABG pH POC ABG pCO2 POC ABG pO2 ABG pO2 ABG HCO3 ABG Base Excess ABG Hemoglobin Oxyhemoglobin Sodium Potassium Chloride Carbon Dioxide BUN Creatinine Glucose POC Glucose 140 H 150 H 158 H Calcium Phosphorus Magnesium ALT Alkaline Phosphatase Total Creatine Kinase CK-MB (CK-2) Rel Index Troponin T Albumin LDL Cholesterol Direct PTH Intact Salicylates Acetaminophen Crossmatch 03/13/19 03/14/19 03/14/19 23:32 05:24 12:20 WBC RBC Hgb Hct MCH MCHC RDW Lymph % (Auto) [place] % (Auto) Eos % (Auto) Lymph # [place] # Eos # Seg Neutrophils % Seg Neuts % (Manual) Lymphocytes % (Manual) Eosinophils % (Manual) Seg Neutrophils # Lymphocytes # (Manual) Eosinophils # (Manual) PT INR D-Dimer POC ABG pH POC ABG pCO2 POC ABG pO2 ABG pO2 ABG HCO3 ABG Base Excess ABG Hemoglobin Oxyhemoglobin Sodium Potassium Chloride Carbon Dioxide BUN Creatinine Glucose POC Glucose 162 H 146 H 127 H Calcium Phosphorus Magnesium ALT Alkaline Phosphatase Total Creatine Kinase CK-MB (CK-2) Rel Index Troponin T Albumin LDL Cholesterol Direct PTH Intact Salicylates Acetaminophen Crossmatch 03/14/19 03/14/19 03/15/19 18:05 23:57 04:38 WBC 12.8 H RBC 3.11 L Hgb 8.1 L Hct 26.5 L MCH 26 L MCHC 31 L RDW 19.7 H Lymph % (Auto) 4.4 L [place] % (Auto) 7.4 H Eos % (Auto) Lymph # 0.6 L [place] # 0.9 H Eos # Seg Neutrophils % 87.3 H Seg Neuts % (Manual) Lymphocytes % (Manual) Eosinophils % (Manual) Seg Neutrophils # 11.2 H Lymphocytes # (Manual) Eosinophils # (Manual) PT INR D-Dimer POC ABG pH POC ABG pCO2 POC ABG pO2 ABG pO2 ABG HCO3 ABG Base Excess ABG Hemoglobin Oxyhemoglobin Sodium Potassium Chloride Carbon Dioxide BUN Creatinine Glucose POC Glucose 142 H 155 H Calcium Phosphorus Magnesium ALT Alkaline Phosphatase Total Creatine Kinase CK-MB (CK-2) Rel Index Troponin T Albumin LDL Cholesterol Direct PTH Intact Salicylates Acetaminophen Crossmatch 03/15/19 03/15/19 03/15/19 04:38 05:31 11:32 WBC RBC Hgb Hct MCH MCHC RDW Lymph % (Auto) [place] % (Auto) Eos % (Auto) Lymph # [place] # Eos # Seg Neutrophils % Seg Neuts % (Manual) Lymphocytes % (Manual) Eosinophils % (Manual) Seg Neutrophils # Lymphocytes # (Manual) Eosinophils # (Manual) PT INR D-Dimer POC ABG pH POC ABG pCO2 POC ABG pO2 ABG pO2 ABG HCO3 ABG Base Excess ABG Hemoglobin Oxyhemoglobin Sodium 135 L Potassium Chloride 91.9 L Carbon Dioxide BUN 54 H Creatinine 2.8 H Glucose 128 H POC Glucose 160 H 109 H Calcium 11.1 H Phosphorus Magnesium ALT Alkaline Phosphatase 161 H Total Creatine Kinase CK-MB (CK-2) Rel Index Troponin T Albumin 2.3 L LDL Cholesterol Direct PTH Intact Salicylates Acetaminophen Crossmatch 03/15/19 03/15/19 03/16/19 18:15 23:41 05:40 WBC RBC Hgb Hct MCH MCHC RDW Lymph % (Auto) [place] % (Auto) Eos % (Auto) Lymph # [place] # Eos # Seg Neutrophils % Seg Neuts % (Manual) Lymphocytes % (Manual) Eosinophils % (Manual) Seg Neutrophils # Lymphocytes # (Manual) Eosinophils # (Manual) PT INR D-Dimer POC ABG pH POC ABG pCO2 POC ABG pO2 ABG pO2 ABG HCO3 ABG Base Excess ABG Hemoglobin Oxyhemoglobin Sodium Potassium Chloride Carbon Dioxide BUN Creatinine Glucose POC Glucose 151 H 110 H 163 H Calcium Phosphorus Magnesium ALT Alkaline Phosphatase Total Creatine Kinase CK-MB (CK-2) Rel Index Troponin T Albumin LDL Cholesterol Direct PTH Intact Salicylates Acetaminophen Crossmatch 03/16/19 03/16/19 03/16/19 11:55 17:04 23:58 WBC RBC Hgb Hct MCH MCHC RDW Lymph % (Auto) [place] % (Auto) Eos % (Auto) Lymph # [place] # Eos # Seg Neutrophils % Seg Neuts % (Manual) Lymphocytes % (Manual) Eosinophils % (Manual) Seg Neutrophils # Lymphocytes # (Manual) Eosinophils # (Manual) PT INR D-Dimer POC ABG pH POC ABG pCO2 POC ABG pO2 ABG pO2 ABG HCO3 ABG Base Excess ABG Hemoglobin Oxyhemoglobin Sodium Potassium Chloride Carbon Dioxide BUN Creatinine Glucose POC Glucose 114 H 147 H 192 H Calcium Phosphorus Magnesium ALT Alkaline Phosphatase Total Creatine Kinase CK-MB (CK-2) Rel Index Troponin T Albumin LDL Cholesterol Direct PTH Intact Salicylates Acetaminophen Crossmatch 03/17/19 03/17/19 03/17/19 05:53 11:17 17:01 WBC RBC Hgb Hct MCH MCHC RDW Lymph % (Auto) [place] % (Auto) Eos % (Auto) Lymph # [place] # Eos # Seg Neutrophils % Seg Neuts % (Manual) Lymphocytes % (Manual) Eosinophils % (Manual) Seg Neutrophils # Lymphocytes # (Manual) Eosinophils # (Manual) PT INR D-Dimer POC ABG pH POC ABG pCO2 POC ABG pO2 ABG pO2 ABG HCO3 ABG Base Excess ABG Hemoglobin Oxyhemoglobin Sodium Potassium Chloride Carbon Dioxide BUN Creatinine Glucose POC Glucose 151 H 161 H 152 H Calcium Phosphorus Magnesium ALT Alkaline Phosphatase Total Creatine Kinase CK-MB (CK-2) Rel Index Troponin T Albumin LDL Cholesterol Direct PTH Intact Salicylates Acetaminophen Crossmatch 03/17/19 03/18/19 03/18/19 21:47 04:15 04:44 WBC RBC Hgb Hct MCH MCHC RDW Lymph % (Auto) [place] % (Auto) Eos % (Auto) Lymph # [place] # Eos # Seg Neutrophils % Seg Neuts % (Manual) Lymphocytes % (Manual) Eosinophils % (Manual) Seg Neutrophils # Lymphocytes # (Manual) Eosinophils # (Manual) PT INR D-Dimer POC ABG pH POC ABG pCO2 POC ABG pO2 ABG pO2 102.8 H ABG HCO3 28.3 H ABG Base Excess ABG Hemoglobin 10.4 L Oxyhemoglobin 94.5 L Sodium Potassium Chloride Carbon Dioxide BUN Creatinine Glucose POC Glucose 170 H 150 H Calcium Phosphorus Magnesium ALT Alkaline Phosphatase Total Creatine Kinase CK-MB (CK-2) Rel Index Troponin T Albumin LDL Cholesterol Direct PTH Intact Salicylates Acetaminophen Crossmatch 03/18/19 03/18/19 03/18/19 06:38 12:12 17:47 WBC RBC Hgb Hct MCH MCHC RDW Lymph % (Auto) [place] % (Auto) Eos % (Auto) Lymph # [place] # Eos # Seg Neutrophils % Seg Neuts % (Manual) Lymphocytes % (Manual) Eosinophils % (Manual) Seg Neutrophils # Lymphocytes # (Manual) Eosinophils # (Manual) PT INR D-Dimer POC ABG pH 7.510 H POC ABG pCO2 POC ABG pO2 164 H ABG pO2 ABG HCO3 ABG Base Excess ABG Hemoglobin Oxyhemoglobin Sodium Potassium Chloride Carbon Dioxide BUN Creatinine Glucose POC Glucose 145 H 149 H Calcium Phosphorus Magnesium ALT Alkaline Phosphatase Total Creatine Kinase CK-MB (CK-2) Rel Index Troponin T Albumin LDL Cholesterol Direct PTH Intact Salicylates Acetaminophen Crossmatch 03/18/19 03/19/19 03/19/19 23:25 01:11 04:23 WBC 15.6 H RBC 2.51 L Hgb 6.5 L Hct 21.6 L MCH 26 L MCHC 30 L RDW 19.8 H Lymph % (Auto) 6.0 L [place] % (Auto) Eos % (Auto) Lymph # 0.9 L [place] # 1.0 H Eos # Seg Neutrophils % 85.5 H Seg Neuts % (Manual) Lymphocytes % (Manual) Eosinophils % (Manual) Seg Neutrophils # 13.4 H Lymphocytes # (Manual) Eosinophils # (Manual) PT INR D-Dimer POC ABG pH POC ABG pCO2 POC ABG pO2 ABG pO2 78.3 L ABG HCO3 30.7 H ABG Base Excess 5.8 H ABG Hemoglobin 5.8 L Oxyhemoglobin 94.6 L Sodium Potassium Chloride Carbon Dioxide BUN Creatinine Glucose POC Glucose 190 H Calcium Phosphorus Magnesium ALT Alkaline Phosphatase Total Creatine Kinase CK-MB (CK-2) Rel Index Troponin T Albumin LDL Cholesterol Direct PTH Intact Salicylates Acetaminophen Crossmatch 03/19/19 03/19/19 03/19/19 05:22 05:35 08:54 WBC RBC Hgb Hct MCH MCHC RDW Lymph % (Auto) [place] % (Auto) Eos % (Auto) Lymph # [place] # Eos # Seg Neutrophils % Seg Neuts % (Manual) Lymphocytes % (Manual) Eosinophils % (Manual) Seg Neutrophils # Lymphocytes # (Manual) Eosinophils # (Manual) PT INR D-Dimer POC ABG pH POC ABG pCO2 POC ABG pO2 ABG pO2 ABG HCO3 ABG Base Excess ABG Hemoglobin Oxyhemoglobin Sodium Potassium Chloride Carbon Dioxide BUN Creatinine Glucose POC Glucose 167 H Calcium Phosphorus Magnesium ALT Alkaline Phosphatase Total Creatine Kinase CK-MB (CK-2) Rel Index Troponin T Albumin LDL Cholesterol Direct PTH Intact Salicylates Acetaminophen Crossmatch See Detail See Detail 03/19/19 03/19/19 03/19/19 12:36 17:02 23:25 WBC RBC Hgb Hct MCH MCHC RDW Lymph % (Auto) [place] % (Auto) Eos % (Auto) Lymph # [place] # Eos # Seg Neutrophils % Seg Neuts % (Manual) Lymphocytes % (Manual) Eosinophils % (Manual) Seg Neutrophils # Lymphocytes # (Manual) Eosinophils # (Manual) PT INR D-Dimer POC ABG pH POC ABG pCO2 POC ABG pO2 ABG pO2 ABG HCO3 ABG Base Excess ABG Hemoglobin Oxyhemoglobin Sodium Potassium Chloride Carbon Dioxide BUN Creatinine Glucose POC Glucose 167 H 135 H 136 H Calcium Phosphorus Magnesium ALT Alkaline Phosphatase Total Creatine Kinase CK-MB (CK-2) Rel Index Troponin T Albumin LDL Cholesterol Direct PTH Intact Salicylates Acetaminophen Crossmatch 03/20/19 03/20/19 03/20/19 05:38 08:40 08:40 WBC RBC 2.61 L Hgb 7.1 L Hct 22.0 L MCH 27 L MCHC RDW 19.6 H Lymph % (Auto) 8.2 L [place] % (Auto) 8.3 H Eos % (Auto) 5.7 H Lymph # 0.8 L [place] # Eos # 0.5 H Seg Neutrophils % 77.3 H Seg Neuts % (Manual) Lymphocytes % (Manual) Eosinophils % (Manual) Seg Neutrophils # Lymphocytes # (Manual) Eosinophils # (Manual) PT INR D-Dimer POC ABG pH POC ABG pCO2 POC ABG pO2 ABG pO2 ABG HCO3 ABG Base Excess ABG Hemoglobin Oxyhemoglobin Sodium Potassium Chloride 95.9 L Carbon Dioxide BUN 69 H Creatinine 2.8 H Glucose 115 H POC Glucose 134 H Calcium 10.5 H Phosphorus Magnesium ALT Alkaline Phosphatase Total Creatine Kinase CK-MB (CK-2) Rel Index Troponin T Albumin LDL Cholesterol Direct PTH Intact Salicylates Acetaminophen Crossmatch 03/20/19 03/20/19 03/20/19 12:13 18:04 23:49 WBC RBC Hgb Hct MCH MCHC RDW Lymph % (Auto) [place] % (Auto) Eos % (Auto) Lymph # [place] # Eos # Seg Neutrophils % Seg Neuts % (Manual) Lymphocytes % (Manual) Eosinophils % (Manual) Seg Neutrophils # Lymphocytes # (Manual) Eosinophils # (Manual) PT INR D-Dimer POC ABG pH POC ABG pCO2 POC ABG pO2 ABG pO2 ABG HCO3 ABG Base Excess ABG Hemoglobin Oxyhemoglobin Sodium Potassium Chloride Carbon Dioxide BUN Creatinine Glucose POC Glucose 144 H 165 H 172 H Calcium Phosphorus Magnesium ALT Alkaline Phosphatase Total Creatine Kinase CK-MB (CK-2) Rel Index Troponin T Albumin LDL Cholesterol Direct PTH Intact Salicylates Acetaminophen Crossmatch 03/21/19 03/21/19 03/21/19 05:00 06:29 06:30 WBC RBC 2.72 L Hgb 7.4 L Hct 22.9 L MCH 27 L MCHC RDW 19.4 H Lymph % (Auto) [place] % (Auto) Eos % (Auto) Lymph # [place] # Eos # Seg Neutrophils % Seg Neuts % (Manual) 81.0 H Lymphocytes % (Manual) 8.0 L Eosinophils % (Manual) 8.0 H Seg Neutrophils # Lymphocytes # (Manual) 0.7 L Eosinophils # (Manual) 0.7 H PT INR D-Dimer POC ABG pH POC ABG pCO2 POC ABG pO2 ABG pO2 ABG HCO3 ABG Base Excess ABG Hemoglobin Oxyhemoglobin Sodium Potassium Chloride Carbon Dioxide 33 H BUN 43 H Creatinine 1.7 H Glucose 145 H POC Glucose 156 H Calcium Phosphorus Magnesium ALT Alkaline Phosphatase 212 H Total Creatine Kinase CK-MB (CK-2) Rel Index Troponin T Albumin 2.2 L LDL Cholesterol Direct PTH Intact Salicylates Acetaminophen Crossmatch 03/21/19 03/21/19 03/22/19 12:02 18:07 00:21 WBC RBC Hgb Hct MCH MCHC RDW Lymph % (Auto) [place] % (Auto) Eos % (Auto) Lymph # [place] # Eos # Seg Neutrophils % Seg Neuts % (Manual) Lymphocytes % (Manual) Eosinophils % (Manual) Seg Neutrophils # Lymphocytes # (Manual) Eosinophils # (Manual) PT INR D-Dimer POC ABG pH POC ABG pCO2 POC ABG pO2 ABG pO2 ABG HCO3 ABG Base Excess ABG Hemoglobin Oxyhemoglobin Sodium Potassium Chloride Carbon Dioxide BUN Creatinine Glucose POC Glucose 163 H 144 H 153 H Calcium Phosphorus Magnesium ALT Alkaline Phosphatase Total Creatine Kinase CK-MB (CK-2) Rel Index Troponin T Albumin LDL Cholesterol Direct PTH Intact Salicylates Acetaminophen Crossmatch 03/22/19 03/22/19 03/22/19 05:23 05:23 05:31 WBC RBC 2.58 L Hgb 7.1 L Hct 21.8 L MCH 27 L MCHC RDW 19.2 H Lymph % (Auto) [place] % (Auto) Eos % (Auto) Lymph # [place] # Eos # Seg Neutrophils % Seg Neuts % (Manual) Lymphocytes % (Manual) Eosinophils % (Manual) Seg Neutrophils # Lymphocytes # (Manual) Eosinophils # (Manual) PT INR D-Dimer POC ABG pH POC ABG pCO2 POC ABG pO2 ABG pO2 ABG HCO3 ABG Base Excess ABG Hemoglobin Oxyhemoglobin Sodium 147 H Potassium Chloride Carbon Dioxide BUN 68 H Creatinine 2.5 H Glucose POC Glucose 116 H Calcium 10.3 H Phosphorus Magnesium ALT Alkaline Phosphatase Total Creatine Kinase CK-MB (CK-2) Rel Index Troponin T Albumin LDL Cholesterol Direct PTH Intact Salicylates Acetaminophen Crossmatch 03/22/19 03/22/19 03/22/19 08:48 12:37 17:35 WBC RBC Hgb Hct MCH MCHC RDW Lymph % (Auto) [place] % (Auto) Eos % (Auto) Lymph # [place] # Eos # Seg Neutrophils % Seg Neuts % (Manual) Lymphocytes % (Manual) Eosinophils % (Manual) Seg Neutrophils # Lymphocytes # (Manual) Eosinophils # (Manual) PT INR D-Dimer POC ABG pH POC ABG pCO2 POC ABG pO2 ABG pO2 ABG HCO3 ABG Base Excess ABG Hemoglobin Oxyhemoglobin Sodium Potassium Chloride Carbon Dioxide BUN Creatinine Glucose POC Glucose 143 H 155 H Calcium Phosphorus Magnesium ALT Alkaline Phosphatase Total Creatine Kinase CK-MB (CK-2) Rel Index Troponin T Albumin LDL Cholesterol Direct PTH Intact Salicylates Acetaminophen Crossmatch See Detail 03/23/19 03/23/19 03/23/19 00:07 04:00 04:00 WBC 11.2 H RBC 2.32 L Hgb 6.4 L Hct 19.7 L* MCH MCHC RDW 19.4 H Lymph % (Auto) [place] % (Auto) Eos % (Auto) Lymph # [place] # Eos # Seg Neutrophils % Seg Neuts % (Manual) Lymphocytes % (Manual) Eosinophils % (Manual) Seg Neutrophils # Lymphocytes # (Manual) Eosinophils # (Manual) PT INR D-Dimer POC ABG pH POC ABG pCO2 POC ABG pO2 ABG pO2 ABG HCO3 ABG Base Excess ABG Hemoglobin Oxyhemoglobin Sodium 147 H Potassium 5.2 H Chloride Carbon Dioxide BUN 86 H Creatinine 3.2 H Glucose 128 H POC Glucose 135 H Calcium 10.3 H Phosphorus Magnesium ALT Alkaline Phosphatase Total Creatine Kinase CK-MB (CK-2) Rel Index Troponin T Albumin LDL Cholesterol Direct PTH Intact Salicylates Acetaminophen Crossmatch 03/23/19 03/23/19 03/23/19 05:21 11:36 11:36 WBC RBC Hgb 7.9 L Hct 25.0 L MCH MCHC RDW Lymph % (Auto) [place] % (Auto) Eos % (Auto) Lymph # [place] # Eos # Seg Neutrophils % Seg Neuts % (Manual) Lymphocytes % (Manual) Eosinophils % (Manual) Seg Neutrophils # Lymphocytes # (Manual) Eosinophils # (Manual) PT INR D-Dimer POC ABG pH POC ABG pCO2 POC ABG pO2 ABG pO2 ABG HCO3 ABG Base Excess ABG Hemoglobin Oxyhemoglobin Sodium Potassium Chloride Carbon Dioxide BUN Creatinine Glucose POC Glucose 132 H 147 H Calcium Phosphorus Magnesium ALT Alkaline Phosphatase Total Creatine Kinase CK-MB (CK-2) Rel Index Troponin T Albumin LDL Cholesterol Direct PTH Intact Salicylates Acetaminophen Crossmatch 03/23/19 03/24/19 03/24/19 17:31 01:22 04:20 WBC 12.2 H RBC 3.05 L Hgb 8.3 L Hct 25.9 L MCH 27 L MCHC RDW 18.7 H Lymph % (Auto) [place] % (Auto) Eos % (Auto) Lymph # [place] # Eos # Seg Neutrophils % Seg Neuts % (Manual) Lymphocytes % (Manual) Eosinophils % (Manual) Seg Neutrophils # Lymphocytes # (Manual) Eosinophils # (Manual) PT INR D-Dimer POC ABG pH POC ABG pCO2 POC ABG pO2 ABG pO2 ABG HCO3 ABG Base Excess ABG Hemoglobin Oxyhemoglobin Sodium Potassium Chloride Carbon Dioxide BUN Creatinine Glucose POC Glucose 182 H 113 H Calcium Phosphorus Magnesium ALT Alkaline Phosphatase Total Creatine Kinase CK-MB (CK-2) Rel Index Troponin T Albumin LDL Cholesterol Direct PTH Intact Salicylates Acetaminophen Crossmatch 03/24/19 03/24/19 03/24/19 04:20 11:59 18:14 WBC RBC Hgb Hct MCH MCHC RDW Lymph % (Auto) [place] % (Auto) Eos % (Auto) Lymph # [place] # Eos # Seg Neutrophils % Seg Neuts % (Manual) Lymphocytes % (Manual) Eosinophils % (Manual) Seg Neutrophils # Lymphocytes # (Manual) Eosinophils # (Manual) PT INR D-Dimer POC ABG pH POC ABG pCO2 POC ABG pO2 ABG pO2 ABG HCO3 ABG Base Excess ABG Hemoglobin Oxyhemoglobin Sodium Potassium Chloride 94.8 L Carbon Dioxide 32 H BUN 53 H Creatinine 2.3 H Glucose POC Glucose 163 H 134 H Calcium Phosphorus Magnesium ALT Alkaline Phosphatase Total Creatine Kinase CK-MB (CK-2) Rel Index Troponin T Albumin LDL Cholesterol Direct PTH Intact Salicylates Acetaminophen Crossmatch 03/24/19 03/25/19 03/25/19 23:15 05:52 12:02 WBC RBC Hgb Hct MCH MCHC RDW Lymph % (Auto) [place] % (Auto) Eos % (Auto) Lymph # [place] # Eos # Seg Neutrophils % Seg Neuts % (Manual) Lymphocytes % (Manual) Eosinophils % (Manual) Seg Neutrophils # Lymphocytes # (Manual) Eosinophils # (Manual) PT INR D-Dimer POC ABG pH POC ABG pCO2 POC ABG pO2 ABG pO2 ABG HCO3 ABG Base Excess ABG Hemoglobin Oxyhemoglobin Sodium Potassium Chloride Carbon Dioxide BUN Creatinine Glucose POC Glucose 129 H 123 H 125 H Calcium Phosphorus Magnesium ALT Alkaline Phosphatase Total Creatine Kinase CK-MB (CK-2) Rel Index Troponin T Albumin LDL Cholesterol Direct PTH Intact Salicylates Acetaminophen Crossmatch 03/25/19 03/26/19 03/26/19 17:27 00:30 05:35 WBC RBC 3.01 L Hgb 8.1 L Hct 25.7 L MCH 27 L MCHC RDW 19.2 H Lymph % (Auto) 11.4 L [place] % (Auto) Eos % (Auto) 8.0 H Lymph # 1.0 L [place] # Eos # 0.7 H Seg Neutrophils % 73.9 H Seg Neuts % (Manual) Lymphocytes % (Manual) Eosinophils % (Manual) Seg Neutrophils # Lymphocytes # (Manual) Eosinophils # (Manual) PT INR D-Dimer POC ABG pH POC ABG pCO2 POC ABG pO2 ABG pO2 ABG HCO3 ABG Base Excess ABG Hemoglobin Oxyhemoglobin Sodium Potassium Chloride Carbon Dioxide BUN Creatinine Glucose POC Glucose 130 H 129 H Calcium Phosphorus Magnesium ALT Alkaline Phosphatase Total Creatine Kinase CK-MB (CK-2) Rel Index Troponin T Albumin LDL Cholesterol Direct PTH Intact Salicylates Acetaminophen Crossmatch 03/26/19 03/26/19 03/26/19 05:35 05:45 12:16 WBC RBC Hgb Hct MCH MCHC RDW Lymph % (Auto) [place] % (Auto) Eos % (Auto) Lymph # [place] # Eos # Seg Neutrophils % Seg Neuts % (Manual) Lymphocytes % (Manual) Eosinophils % (Manual) Seg Neutrophils # Lymphocytes # (Manual) Eosinophils # (Manual) PT INR D-Dimer POC ABG pH POC ABG pCO2 POC ABG pO2 ABG pO2 ABG HCO3 ABG Base Excess ABG Hemoglobin Oxyhemoglobin Sodium Potassium Chloride 94.9 L Carbon Dioxide 31 H BUN 44 H Creatinine 2.0 H Glucose POC Glucose 118 H 107 H Calcium Phosphorus Magnesium ALT Alkaline Phosphatase Total Creatine Kinase CK-MB (CK-2) Rel Index Troponin T Albumin LDL Cholesterol Direct PTH Intact Salicylates Acetaminophen Crossmatch 03/26/19 03/27/19 03/27/19 17:56 00:36 05:37 WBC RBC Hgb Hct MCH MCHC RDW Lymph % (Auto) [place] % (Auto) Eos % (Auto) Lymph # [place] # Eos # Seg Neutrophils % Seg Neuts % (Manual) Lymphocytes % (Manual) Eosinophils % (Manual) Seg Neutrophils # Lymphocytes # (Manual) Eosinophils # (Manual) PT INR D-Dimer POC ABG pH POC ABG pCO2 POC ABG pO2 ABG pO2 ABG HCO3 ABG Base Excess ABG Hemoglobin Oxyhemoglobin Sodium Potassium Chloride Carbon Dioxide BUN Creatinine Glucose POC Glucose 107 H 110 H 122 H Calcium Phosphorus Magnesium ALT Alkaline Phosphatase Total Creatine Kinase CK-MB (CK-2) Rel Index Troponin T Albumin LDL Cholesterol Direct PTH Intact Salicylates Acetaminophen Crossmatch 03/27/19 03/27/19 03/28/19 11:22 18:00 05:17 WBC RBC Hgb Hct MCH MCHC RDW Lymph % (Auto) [place] % (Auto) Eos % (Auto) Lymph # [place] # Eos # Seg Neutrophils % Seg Neuts % (Manual) Lymphocytes % (Manual) Eosinophils % (Manual) Seg Neutrophils # Lymphocytes # (Manual) Eosinophils # (Manual) PT INR D-Dimer POC ABG pH POC ABG pCO2 POC ABG pO2 ABG pO2 ABG HCO3 ABG Base Excess ABG Hemoglobin Oxyhemoglobin Sodium Potassium Chloride Carbon Dioxide BUN Creatinine Glucose POC Glucose 120 H 111 H 107 H Calcium Phosphorus Magnesium ALT Alkaline Phosphatase Total Creatine Kinase CK-MB (CK-2) Rel Index Troponin T Albumin LDL Cholesterol Direct PTH Intact Salicylates Acetaminophen Crossmatch 03/28/19 03/28/19 03/29/19 12:27 18:08 05:47 WBC RBC Hgb Hct MCH MCHC RDW Lymph % (Auto) [place] % (Auto) Eos % (Auto) Lymph # [place] # Eos # Seg Neutrophils % Seg Neuts % (Manual) Lymphocytes % (Manual) Eosinophils % (Manual) Seg Neutrophils # Lymphocytes # (Manual) Eosinophils # (Manual) PT INR D-Dimer POC ABG pH POC ABG pCO2 POC ABG pO2 ABG pO2 ABG HCO3 ABG Base Excess ABG Hemoglobin Oxyhemoglobin Sodium Potassium Chloride Carbon Dioxide BUN Creatinine Glucose POC Glucose 114 H 121 H 112 H Calcium Phosphorus Magnesium ALT Alkaline Phosphatase Total Creatine Kinase CK-MB (CK-2) Rel Index Troponin T Albumin LDL Cholesterol Direct PTH Intact Salicylates Acetaminophen Crossmatch 03/29/19 03/29/19 03/30/19 12:14 18:08 00:31 WBC RBC Hgb Hct MCH MCHC RDW Lymph % (Auto) [place] % (Auto) Eos % (Auto) Lymph # [place] # Eos # Seg Neutrophils % Seg Neuts % (Manual) Lymphocytes % (Manual) Eosinophils % (Manual) Seg Neutrophils # Lymphocytes # (Manual) Eosinophils # (Manual) PT INR D-Dimer POC ABG pH POC ABG pCO2 POC ABG pO2 ABG pO2 ABG HCO3 ABG Base Excess ABG Hemoglobin Oxyhemoglobin Sodium Potassium Chloride Carbon Dioxide BUN Creatinine Glucose POC Glucose 117 H 140 H 114 H Calcium Phosphorus Magnesium ALT Alkaline Phosphatase Total Creatine Kinase CK-MB (CK-2) Rel Index Troponin T Albumin LDL Cholesterol Direct PTH Intact Salicylates Acetaminophen Crossmatch 03/30/19 03/30/19 03/30/19 10:13 10:13 23:53 WBC RBC 2.81 L Hgb 7.7 L Hct 24.3 L MCH 27 L MCHC RDW 19.0 H Lymph % (Auto) 12.2 L [place] % (Auto) Eos % (Auto) 7.9 H Lymph # 1.0 L [place] # Eos # 0.6 H Seg Neutrophils % 72.3 H Seg Neuts % (Manual) Lymphocytes % (Manual) Eosinophils % (Manual) Seg Neutrophils # Lymphocytes # (Manual) Eosinophils # (Manual) PT INR D-Dimer POC ABG pH POC ABG pCO2 POC ABG pO2 ABG pO2 ABG HCO3 ABG Base Excess ABG Hemoglobin Oxyhemoglobin Sodium Potassium 5.1 H Chloride 96.5 L Carbon Dioxide BUN 73 H Creatinine 3.9 H D Glucose POC Glucose 114 H Calcium 10.3 H Phosphorus 6.30 H Magnesium 2.70 H ALT Alkaline Phosphatase 185 H Total Creatine Kinase CK-MB (CK-2) Rel Index Troponin T Albumin 2.6 L LDL Cholesterol Direct PTH Intact Salicylates Acetaminophen Crossmatch 03/31/19 03/31/19 03/31/19 05:45 10:26 10:26 WBC RBC 3.01 L Hgb 8.2 L Hct 26.4 L MCH 27 L MCHC 31 L RDW 20.3 H Lymph % (Auto) 13.3 L [place] % (Auto) Eos % (Auto) 7.2 H Lymph # 1.1 L [place] # Eos # 0.6 H Seg Neutrophils % 72.1 H Seg Neuts % (Manual) Lymphocytes % (Manual) Eosinophils % (Manual) Seg Neutrophils # Lymphocytes # (Manual) Eosinophils # (Manual) PT INR D-Dimer POC ABG pH POC ABG pCO2 POC ABG pO2 ABG pO2 ABG HCO3 ABG Base Excess ABG Hemoglobin Oxyhemoglobin Sodium Potassium Chloride 96.9 L Carbon Dioxide 33 H BUN 37 H Creatinine 2.4 H Glucose POC Glucose 108 H Calcium 10.3 H Phosphorus Magnesium ALT Alkaline Phosphatase Total Creatine Kinase CK-MB (CK-2) Rel Index Troponin T Albumin LDL Cholesterol Direct PTH Intact Salicylates Acetaminophen Crossmatch 03/31/19 04/01/19 04/01/19 12:38 05:48 12:06 WBC RBC Hgb Hct MCH MCHC RDW Lymph % (Auto) Dodge % (Auto) Eos % (Auto) Lymph # Dodge # Eos # Seg Neutrophils % Seg Neuts % (Manual) Lymphocytes % (Manual) Eosinophils % (Manual) Seg Neutrophils # Lymphocytes # (Manual) Eosinophils # (Manual) PT INR D-Dimer POC ABG pH POC ABG pCO2 POC ABG pO2 ABG pO2 ABG HCO3 ABG Base Excess ABG Hemoglobin Oxyhemoglobin Sodium Potassium Chloride Carbon Dioxide BUN Creatinine Glucose POC Glucose 108 H 114 H 111 H Calcium Phosphorus Magnesium ALT Alkaline Phosphatase Total Creatine Kinase CK-MB (CK-2) Rel Index Troponin T Albumin LDL Cholesterol Direct PTH Intact Salicylates Acetaminophen Crossmatch 04/01/19 04/02/19 04/04/19 18:24 00:36 23:55 WBC RBC Hgb Hct MCH MCHC RDW Lymph % (Auto) Dodge % (Auto) Eos % (Auto) Lymph # Dodge # Eos # Seg Neutrophils % Seg Neuts % (Manual) Lymphocytes % (Manual) Eosinophils % (Manual) Seg Neutrophils # Lymphocytes # (Manual) Eosinophils # (Manual) PT INR D-Dimer POC ABG pH POC ABG pCO2 POC ABG pO2 ABG pO2 ABG HCO3 ABG Base Excess ABG Hemoglobin Oxyhemoglobin Sodium Potassium Chloride Carbon Dioxide BUN Creatinine Glucose POC Glucose 113 H 117 H 109 H Calcium Phosphorus Magnesium ALT Alkaline Phosphatase Total Creatine Kinase CK-MB (CK-2) Rel Index Troponin T Albumin LDL Cholesterol Direct PTH Intact Salicylates Acetaminophen Crossmatch 04/06/19 04/06/19 04/06/19 00:11 06:02 23:30 WBC RBC Hgb Hct MCH MCHC RDW Lymph % (Auto) [place] % (Auto) Eos % (Auto) Lymph # Dodge # Eos # Seg Neutrophils % Seg Neuts % (Manual) Lymphocytes % (Manual) Eosinophils % (Manual) Seg Neutrophils # Lymphocytes # (Manual) Eosinophils # (Manual) PT INR D-Dimer POC ABG pH POC ABG pCO2 POC ABG pO2 ABG pO2 ABG HCO3 ABG Base Excess ABG Hemoglobin Oxyhemoglobin Sodium Potassium Chloride Carbon Dioxide BUN Creatinine Glucose POC Glucose 116 H 112 H 112 H Calcium Phosphorus Magnesium ALT Alkaline Phosphatase Total Creatine Kinase CK-MB (CK-2) Rel Index Troponin T Albumin LDL Cholesterol Direct PTH Intact Salicylates Acetaminophen Crossmatch 04/08/19 04/08/19 04/08/19 02:23 06:19 13:01 WBC RBC Hgb Hct MCH MCHC RDW Lymph % (Auto) Dodge % (Auto) Eos % (Auto) Lymph # Dodge # Eos # Seg Neutrophils % Seg Neuts % (Manual) Lymphocytes % (Manual) Eosinophils % (Manual) Seg Neutrophils # Lymphocytes # (Manual) Eosinophils # (Manual) PT INR D-Dimer POC ABG pH POC ABG pCO2 POC ABG pO2 ABG pO2 ABG HCO3 ABG Base Excess ABG Hemoglobin Oxyhemoglobin Sodium Potassium Chloride Carbon Dioxide BUN Creatinine Glucose POC Glucose 144 H 126 H 118 H Calcium Phosphorus Magnesium ALT Alkaline Phosphatase Total Creatine Kinase CK-MB (CK-2) Rel Index Troponin T Albumin LDL Cholesterol Direct PTH Intact Salicylates Acetaminophen Crossmatch 04/08/19 04/09/19 04/10/19 23:28 05:52 06:34 WBC RBC Hgb Hct MCH MCHC RDW Lymph % (Auto) Dodge % (Auto) Eos % (Auto) Lymph # [place] # Eos # Seg Neutrophils % Seg Neuts % (Manual) Lymphocytes % (Manual) Eosinophils % (Manual) Seg Neutrophils # Lymphocytes # (Manual) Eosinophils # (Manual) PT INR D-Dimer POC ABG pH POC ABG pCO2 POC ABG pO2 ABG pO2 ABG HCO3 ABG Base Excess ABG Hemoglobin Oxyhemoglobin Sodium Potassium Chloride Carbon Dioxide BUN Creatinine Glucose POC Glucose 119 H 116 H 114 H Calcium Phosphorus Magnesium ALT Alkaline Phosphatase Total Creatine Kinase CK-MB (CK-2) Rel Index Troponin T Albumin LDL Cholesterol Direct PTH Intact Salicylates Acetaminophen Crossmatch
[2019-04-10] MEDS: FAMOTIDINE 20 MG TAB PO SCH (14:38)
[2019-04-10] MEDS: risperiDONE 1 MG TAB PO SCH (14:38)
[2019-04-10] MEDS: SERTRALINE 100 MG TAB PO SCH (14:38)
[2019-04-10] MEDS ORDERED: SIMPLE SYRUP 15 ML FEEDTUBE PRN ×2 (15:16)
[2019-04-10] MEDS ORDERED: LIPASE 10,500/PROTEASE 25,000/AMYLASE 43,750 (UNITS) DR CAP FEEDTUBE PRN (15:16)
[2019-04-10] MEDS ORDERED: SODIUM BICARBONATE 325 MG TAB FEEDTUBE PRN (15:16)
--- NOTE | 2019-04-10 18:43 | Progress Note ---
Assessment and Plan Assessment: * End stage renal disease (outpatient TTS schedule) * Acute hypoxic respiratory failure s/p trach * KEON pneumonia --Sputum cx: MDR Acinetobacter * Cardiomyopathy - EF 35-40% * Atrial fibrillation * History of CVA * Anemia secondary to ESRD * Secondary hyperparathyroidism Plan * Continue HD MWF via [facility] * UF as tolerated * Nutrition per primary team * Dose medications for renal function * Epogen 20k TIW Subjective Date of service: 04/10/19 Principal diagnosis: Respiratory failure, acute on chronic systolic HF, ESRD Interval history: No acute events overnight. Objective - Vital Signs Vital signs: Vital Signs - 12hr 04/10/19 04/10/19 04/10/19 07:39 07:40 07:41 Temperature Pulse Rate Pulse Rate [ 89 Anterior Bilateral Throughout] Pulse Rate [ From Monitor] Pulse Rate [ Left Radial] Pulse Rate [ Right Radial] Respiratory Rate Respiratory 18 Rate [Anterior Bilateral Throughout] Blood Pressure O2 Sat by Pulse 94 Oximetry O2 Sat by Pulse 95 Oximetry [ Assessment] 04/10/19 04/10/19 04/10/19 08:03 09:40 10:00 Temperature 98.8 F Pulse Rate 78 71 Pulse Rate [ Anterior Bilateral Throughout] Pulse Rate [ 78 From Monitor] Pulse Rate [ 78 Left Radial] Pulse Rate [ 78 Right Radial] Respiratory 18 18 Rate Respiratory Rate [Anterior Bilateral Throughout] Blood Pressure 127/58 O2 Sat by Pulse 96 98 96 Oximetry O2 Sat by Pulse Oximetry [ Assessment] 04/10/19 04/10/19 04/10/19 10:25 10:30 10:45 Temperature 98.2 F Pulse Rate 75 74 76 Pulse Rate [ Anterior Bilateral Throughout] Pulse Rate [ From Monitor] Pulse Rate [ Left Radial] Pulse Rate [ Right Radial] Respiratory 16 Rate Respiratory Rate [Anterior Bilateral Throughout] Blood Pressure 127/55 125/62 116/57 O2 Sat by Pulse Oximetry O2 Sat by Pulse Oximetry [ Assessment] 04/10/19 04/10/19 04/10/19 11:00 11:15 11:30 Temperature Pulse Rate 73 74 73 Pulse Rate [ Anterior Bilateral Throughout] Pulse Rate [ From Monitor] Pulse Rate [ Left Radial] Pulse Rate [ Right Radial] Respiratory Rate Respiratory Rate [Anterior Bilateral Throughout] Blood Pressure 121/60 118/59 120/61 O2 Sat by Pulse Oximetry O2 Sat by Pulse Oximetry [ Assessment] 04/10/19 04/10/1904/10/19 11:45 12:00 12:15 Temperature Pulse Rate 72 76 76 Pulse Rate [ Anterior Bilateral Throughout] Pulse Rate [ From Monitor] Pulse Rate [ Left Radial] Pulse Rate [ Right Radial] Respiratory Rate Respiratory Rate [Anterior Bilateral Throughout] Blood Pressure 119/60 125/58 123/60 O2 Sat by Pulse Oximetry O2 Sat by Pulse Oximetry [ Assessment] 04/10/19 04/10/19 04/10/19 12:30 12:45 13:00 Temperature Pulse Rate 67 71 69 Pulse Rate [ Anterior Bilateral Throughout] Pulse Rate [ From Monitor] Pulse Rate [ Left Radial] Pulse Rate [ Right Radial] Respiratory Rate Respiratory Rate [Anterior Bilateral Throughout] Blood Pressure 112/52 112/58 121/61 O2 Sat by Pulse Oximetry O2 Sat by Pulse Oximetry [ Assessment] 04/10/19 04/10/19 04/10/19 13:15 13:16 13:30 Temperature Pulse Rate 76 68 Pulse Rate [ 102 H Anterior Bilateral Throughout] Pulse Rate [ From Monitor] Pulse Rate [ Left Radial] Pulse Rate [ Right Radial] Respiratory Rate Respiratory 20 Rate [Anterior Bilateral Throughout] Blood Pressure 131/61 115/57 O2 Sat by Pulse Oximetry O2 Sat by Pulse Oximetry [ Assessment] 04/10/19 04/10/19 04/10/19 13:45 14:00 14:53 Temperature 97.1 F L Pulse Rate 54 L 69 72 Pulse Rate [ Anterior Bilateral Throughout] Pulse Rate [ From Monitor] Pulse Rate [ Left Radial] Pulse Rate [ Right Radial] Respiratory 20 Rate Respiratory Rate [Anterior Bilateral Throughout] Blood Pressure 129/60 122/59 129/60 O2 Sat by Pulse Oximetry O2 Sat by Pulse Oximetry [ Assessment] 04/10/19 15:56 Temperature Pulse Rate Pulse Rate [ Anterior Bilateral Throughout] Pulse Rate [ From Monitor] Pulse Rate [ Left Radial] Pulse Rate [ Right Radial] Respiratory Rate Respiratory Rate [Anterior Bilateral Throughout] Blood Pressure O2 Sat by Pulse Oximetry O2 Sat by Pulse 98 Oximetry [ Assessment] - General Appearance General appearance: chronically ill EENT: ATNC Neck: other (trach collar) Respiratory: Present: Decreased Breath Sounds Cardiology: regular, S1S2 Gastrointestinal: no tenderness, no distended, other (PEG, ostomy) Musculoskeletal: other (no edema) - Lab 03/31/19 10:26 03/31/19 10:26 Most recent lab results ABG pH 7.424 pH Units (7.350-7.450) 03/19/19 04:23 ABG pCO2 48.0 mm Hg 03/19/19 04:23 ABG pO2 78.3 mm Hg (80.0-90.0) L 03/19/19 04:23 ABG HCO3 30.7 mmol/L (20.0-26.0) H 03/19/19 04:23 ABG O2 Saturation 97.0 % (95.0-99.0) 03/19/19 04:23 Calcium 10.3 mg/dL (8.4-10.2) H 03/31/19 10:26 Phosphorus 4.30 mg/dL (2.5-4.5) D 03/31/19 10:26 Magnesium 2.70 mg/dL (1.7-2.3) H 03/30/19 10:13 Medications & Allergies - Medications Allergies/Adverse Reactions: Allergies haloperidol [From Haldol] Adverse Reaction (Verified 03/13/18 12:10) Unknown haloperidol lactate [From Haldol] Adverse Reaction (Verified 03/13/18 12:10) Unknown Home Medications: Home Medications Medication Instructions Recorded Confirmed Last Taken Type risperiDONE [RisperDAL] 1 mg PO QAM 03/13/18 02/21/19 Unknown History Sertraline [Zoloft] 100 mg PO QDAY 08/26/18 02/21/19 Unknown History Polyethylene Glycol 3350 [Miralax 17 gm PO QDAY #30 packet 11/05/18 02/21/19 Unknown Rx 3350] Aspirin EC [Halfprin EC] 81 mg PO DAILY #30 11/19/18 02/21/19 Unknown Rx Docusate Sodium [Colace CAP] 100 mg PO BID #60 11/19/18 02/21/19 Unknown Rx Folic Acid [Folvite] 1 mg PO DAILY #30 tab 11/19/18 02/21/19 Unknown Rx Famotidine [Pepcid] 20 mg PO DAILY tablet 12/08/18 02/21/19 Unknown Rx Gabapentin [Neurontin] 100 mg PO QHS capsule 12/08/18 02/21/19 Unknown Rx Metoprolol [Lopressor TAB] 50 mg PO BID 30 Days tablet 12/08/18 02/21/19 Unknown Rx Sevelamer Carbonate [Renvela] 800 mg PO TIDWM tablet 12/08/18 02/21/19 Unknown Rx hydrALAZINE [Apresoline TAB] 100 mg PO Q8HR #120 tablet 12/08/18 02/21/19 Unknown Rx Acetaminophen [Acetaminophen TAB] 650 mg PO Q12H PRN 12/15/18 02/21/19 Unknown History Glucagon,Human Recombinant 1 mg IJ Q15MIN PRN 12/15/18 02/21/19 Unknown History [Glucagon Emergency Kit] Insulin Aspart [NovoLOG 100 See Protocol SQ QWEEK 12/15/18 02/21/19 Unknown History UNITS/ML VIAL] Active Medications: Generic Name Dose Route Start Last Admin Trade Name Freq PRN Reason Stop Dose Admin Albuterol/Ipratropium 1 ampul 02/24/19 20:00 04/10/19 13:15 Duoneb *Not For Prn Use* IH 1 ampul TIDRT SANCHEZ Administration Lipase/Protease/Amylase 1 each 04/10/19 15:16 Pancreaze 10,500 Unit FEEDTUBE PRN PRN For Clogged Feeding Tube Epoetin Solitario 20,000 unit 03/24/19 11:17 04/08/19 10:56 Procrit IV 20,000 unit UMA PRN Administration hemodialysis Famotidine 20 mg 02/23/19 10:00 04/10/19 14:38 Pepcid PO 20 mg DAILY SANCHEZ Administration Hydrophilic Ointment 1 applic 02/21/19 18:24 03/05/19 08:16 Vaseline Lip Therapy TP 1 applic Q2HR PRN Administration Dry Lips Sodium Chloride 100 mls @ 999 mls/hr 02/26/19 09:00 Nacl 0.9% IV UMA PRN Hypotension Insulin Human Regular 0 units 02/26/19 12:00 04/10/19 13:32 Humulin R SUB-Q Not Given Q6HR [facility] Protocol Metoprolol Tartrate 2.5 mg 02/28/19 12:06 03/15/19 05:15 Lopressor IV 2.5 mg Q4HR PRN Administration Tachycardia Multi-Ingred Cream/Lotion/Oil/Oint 1 applic 02/21/19 18:24 03/29/19 21:40 Artificial Tears Ophth Oint OU 1 applic Q4HR PRN Administration Dry Eye(s) Risperidone 1 mg 02/25/19 13:00 04/10/19 14:38 Risperdal PO 1 mg DAILY SANCHEZ Administration Scopolamine 1 each 03/13/19 04:00 04/09/19 04:20 Transderm-Scop TD 1 each Q3D SANCHEZ Administration Sertraline HCl 100 mg 02/25/19 13:00 04/10/19 14:38 Zoloft PO 100 mg DAILY SANCHEZ Administration Simple Syrup 15 ml 04/10/19 15:16 Simple Syrup FEEDTUBE PRN PRN Hypoglycemia Simple Syrup 30 ml 04/10/19 15:16 Simple Syrup FEEDTUBE PRN PRN Hypoglycemia Sodium Bicarbonate 325 mg 04/10/19 15:16 Sodium Bicarbonate FEEDTUBE PRN PRN For Clogged Feeding Tube Sodium Hypochlorite 1 applic 04/01/19 13:00 04/10/19 10:39 Dakin's Half Strength TP 1 applicatio BID SANCHEZ Administration
[2019-04-11] MEDS: SODIUM HYPOCHLORITE, DAKIN'S 1/2 STRENGTH (0.25%) 473 ML TOPICAL SOLN TP SCH ×4 (04:29→21:55)
[2019-04-11] MEDS: INSULIN REGULAR, HUMAN 100 UNITS/1 ML SUB-Q SCH ×4 (04:30→17:23)
[2019-04-11] MEDS: IPRATROPIUM/ALBUTEROL SULFATE 3 ML AMPUL.NEB IH SCH ×3 (07:46→20:03)
--- NOTE | 2019-04-11 09:29 | Progress Note ---
Assessment and Plan - Patient Problems (1) Pulmonary hypertension Current Visit: Yes Status: Acute (2) Dilated cardiomyopathy Current Visit: Yes Status: Acute (3) Encephalopathy Current Visit: Yes Status: Acute (4) ESRD (end stage renal disease) on dialysis Current Visit: Yes Status: Chronic (5) Acute HFrEF (heart failure with reduced ejection fraction) Current Visit: No Status: Acute (6) Altered mental status Current Visit: No Status: Acute Qualifiers: Altered mental status type: unspecified Qualified Code(s): R41.82 - Altered mental status, unspecified (7) Apneic episode Current Visit: No Status: Acute (8) Diabetes mellitus, insulin dependent (IDDM), uncontrolled Current Visit: No Status: Acute (9) Elevated lactic acid level Current Visit: No Status: Acute (10) Pneumothorax Current Visit: Yes Status: Suspected Subjective Principal diagnosis: Respiratory failure, acute on chronic systolic HF, ESRD Interval history: opens eyes tpiece in place Objective Vital Signs - 12hr 04/11/19 04/11/19 04/11/19 00:27 02:04 05:21 Temperature 97.8 F 97.2 F L Pulse Rate 80 79 Pulse Rate [ Anterior Bilateral Throughout] Pulse Rate [ From Monitor] Respiratory 22 22 Rate Respiratory Rate [Anterior Bilateral Throughout] Blood Pressure 113/59 104/61 O2 Sat by Pulse 100 100 Oximetry O2 Sat by Pulse 100 Oximetry [ Assessment] 04/11/19 04/11/19 04/11/19 07:34 07:47 07:48 Temperature 99.1 F Pulse Rate 82 Pulse Rate [ 86 Anterior Bilateral Throughout] Pulse Rate [ From Monitor] Respiratory 18 Rate Respiratory 20 Rate [Anterior Bilateral Throughout] Blood Pressure 130/62 O2 Sat by Pulse 100 100 Oximetry O2 Sat by Pulse Oximetry [ Assessment] 04/11/19 04/11/19 07:49 08:53 Temperature Pulse Rate Pulse Rate [ Anterior Bilateral Throughout] Pulse Rate [ 73 From Monitor] Respiratory 24 Rate Respiratory Rate [Anterior Bilateral Throughout] Blood Pressure O2 Sat by Pulse 96 Oximetry O2 Sat by Pulse 100 Oximetry [ Assessment] Constitutional: no acute distress, alert Eyes: non-icteric ENT: oropharynx moist Neck: supple Effort: normal Ascultation: Bilateral: diminished breath sounds, other (coarse BS bilaterally) Percussion: Bilateral: not dull Cardiovascular: other (tachy, RR; no mrg) Gastrointestinal: normoactive bowel sounds, soft, non-tender, non-distended, other (ostomy in place, brown stool) Extremities: no cyanosis, no edema, pink and warm Neurologic: other (mild weakness LUE, o/w nonfocal) Psychiatric: other (unable to assess) CBC and BMP: 03/31/19 10:26 03/31/19 10:26 ABG, PT/INR, D-dimer: ABG POC ABG pH 7.510 (7.35-7.45) H 03/18/19 06:38 ABG pH 7.424 pH Units (7.350-7.450) 03/19/19 04:23 POC ABG pCO2 38.9 (35-45) 03/18/19 06:38 ABG pCO2 48.0 mm Hg 03/19/19 04:23 POC ABG pO2 164 (80-105) H 03/18/19 06:38 ABG pO2 78.3 mm Hg (80.0-90.0) L 03/19/19 04:23 POC ABG HCO3 31.0 (22-26 mml/L) 03/18/19 06:38 POC ABG Total CO2 32 (23-27mmol/L) 03/18/19 06:38 POC ABG O2 Sat 100 03/18/19 06:38 ABG O2 Saturation 97.0 % (95.0-99.0) 03/19/19 04:23 PT/INR, D-dimer PT 16.3 Sec. (12.2-14.9) H 03/01/19 09:39 INR 1.35 (0.87-1.13) H 03/01/19 09:39 2987.82 ng/mlDDU (0-234) H 02/22/19 05:54 Abnormal lab findings: Abnormal Labs 02/21/19 02/21/19 02/21/19 18:30 18:30 18:30 WBC RBC 3.26 L Hgb 8.8 L Hct 29.0 L MCH 27 L MCHC 30 L RDW 19.1 H Lymph % (Auto) 6.1 L [place] % (Auto) Eos % (Auto) Lymph # 0.4 L [place] # Eos # Seg Neutrophils % 86.2 H Seg Neuts % (Manual) Lymphocytes % (Manual) Eosinophils % (Manual) Seg Neutrophils # Lymphocytes # (Manual) Eosinophils # (Manual) PT INR D-Dimer POC ABG pH POC ABG pCO2 POC ABG pO2 ABG pO2 ABG HCO3 ABG Base Excess ABG Hemoglobin Oxyhemoglobin Sodium 133 L Potassium 3.3 L Chloride 93.1 L Carbon Dioxide 33 H BUN Creatinine Glucose 161 H POC Glucose Calcium Phosphorus Magnesium ALT Alkaline Phosphatase 136 H Total Creatine Kinase 37 L CK-MB (CK-2) Rel Index Troponin T 0.192 H* Albumin 2.4 L LDL Cholesterol Direct 36 L PTH Intact Salicylates Acetaminophen Crossmatch 02/21/19 02/21/19 02/21/19 18:42 20:04 20:04 WBC RBC Hgb Hct MCH MCHC RDW Lymph % (Auto) [place] % (Auto) Eos % (Auto) Lymph # [place] # Eos # Seg Neutrophils % Seg Neuts % (Manual) Lymphocytes % (Manual) Eosinophils % (Manual) Seg Neutrophils # Lymphocytes # (Manual) Eosinophils # (Manual) PT INR D-Dimer POC ABG pH POC ABG pCO2 56.7 H POC ABG pO2 291 H ABG pO2 ABG HCO3 ABG Base Excess ABG Hemoglobin Oxyhemoglobin Sodium Potassium Chloride Carbon Dioxide BUN Creatinine Glucose POC Glucose Calcium Phosphorus Magnesium ALT Alkaline Phosphatase Total Creatine Kinase CK-MB (CK-2) Rel Index Troponin T Albumin LDL Cholesterol Direct PTH Intact Salicylates < 0.3 L Acetaminophen < 5.0 L Crossmatch 02/21/19 02/22/19 02/22/19 22:35 03:42 03:42 WBC RBC 3.20 L Hgb 8.8 L Hct 27.6 L MCH MCHC RDW 18.9 H Lymph % (Auto) 7.4 L [place] % (Auto) Eos % (Auto) Lymph # 0.7 L [place] # Eos # Seg Neutrophils % 84.7 H Seg Neuts % (Manual) Lymphocytes % (Manual) Eosinophils % (Manual) Seg Neutrophils # Lymphocytes # (Manual) Eosinophils # (Manual) PT INR D-Dimer POC ABG pH POC ABG pCO2 POC ABG pO2 ABG pO2 ABG HCO3 ABG Base Excess ABG Hemoglobin Oxyhemoglobin Sodium 134 L Potassium 2.6 L* D Chloride Carbon Dioxide BUN Creatinine Glucose POC Glucose Calcium Phosphorus Magnesium ALT Alkaline Phosphatase Total Creatine Kinase CK-MB (CK-2) Rel Index 5.2 H Troponin T 0.202 H* Albumin LDL Cholesterol Direct PTH Intact Salicylates Acetaminophen Crossmatch 02/22/19 02/22/19 02/22/19 03:42 05:54 09:04 WBC RBC Hgb Hct MCH MCHC RDW Lymph % (Auto) [place] % (Auto) Eos % (Auto) Lymph # [place] # Eos # Seg Neutrophils % Seg Neuts % (Manual) Lymphocytes % (Manual) Eosinophils % (Manual) Seg Neutrophils # Lymphocytes # (Manual) Eosinophils # (Manual) PT INR D-Dimer 2987.82 H POC ABG pH 7.451 H POC ABG pCO2 POC ABG pO2 ABG pO2 ABG HCO3 ABG Base Excess ABG Hemoglobin Oxyhemoglobin Sodium Potassium Chloride Carbon Dioxide BUN Creatinine Glucose POC Glucose Calcium Phosphorus Magnesium ALT Alkaline Phosphatase Total Creatine Kinase CK-MB (CK-2) Rel Index 5.7 H Troponin T 0.193 H* Albumin LDL Cholesterol Direct PTH Intact Salicylates Acetaminophen Crossmatch 02/22/19 02/22/19 02/23/19 10:36 23:56 00:52 WBC RBC Hgb Hct MCH MCHC RDW Lymph % (Auto) [place] % (Auto) Eos % (Auto) Lymph # [place] # Eos # Seg Neutrophils % Seg Neuts % (Manual) Lymphocytes % (Manual) Eosinophils % (Manual) Seg Neutrophils # Lymphocytes # (Manual) Eosinophils # (Manual) PT INR D-Dimer POC ABG pH POC ABG pCO2 POC ABG pO2 ABG pO2 ABG HCO3 ABG Base Excess ABG Hemoglobin Oxyhemoglobin Sodium Potassium 3.1 L Chloride Carbon Dioxide BUN Creatinine Glucose POC Glucose 58 L 111 H Calcium Phosphorus Magnesium ALT Alkaline Phosphatase Total Creatine Kinase CK-MB (CK-2) Rel Index Troponin T Albumin LDL Cholesterol Direct PTH Intact Salicylates Acetaminophen Crossmatch 02/23/19 02/23/19 02/23/19 05:00 06:35 14:26 WBC RBC Hgb Hct MCH MCHC RDW Lymph % (Auto) [place] % (Auto) Eos % (Auto) Lymph # [place] # Eos # Seg Neutrophils % Seg Neuts % (Manual) Lymphocytes % (Manual) Eosinophils % (Manual) Seg Neutrophils # Lymphocytes # (Manual) Eosinophils # (Manual) PT INR D-Dimer POC ABG pH POC ABG pCO2 POC ABG pO2 ABG pO2 ABG HCO3 ABG Base Excess ABG Hemoglobin Oxyhemoglobin Sodium 135 L Potassium 3.1 L Chloride Carbon Dioxide BUN 21 H Creatinine 2.0 H Glucose 57 L POC Glucose 64 L 62 L Calcium Phosphorus Magnesium ALT Alkaline Phosphatase Total Creatine Kinase CK-MB (CK-2) Rel Index Troponin T Albumin LDL Cholesterol Direct PTH Intact Salicylates Acetaminophen Crossmatch 02/24/19 02/24/19 02/24/19 02:11 04:12 04:55 WBC RBC 2.84 L Hgb 7.8 L Hct 24.5 L MCH MCHC RDW 19.5 H Lymph % (Auto) [place] % (Auto) Eos % (Auto) Lymph # [place] # Eos # Seg Neutrophils % Seg Neuts % (Manual) Lymphocytes % (Manual) Eosinophils % (Manual) Seg Neutrophils # Lymphocytes # (Manual) Eosinophils # (Manual) PT INR D-Dimer POC ABG pH 7.511 H POC ABG pCO2 33.9 L POC ABG pO2 62 L ABG pO2 ABG HCO3 ABG Base Excess ABG Hemoglobin Oxyhemoglobin Sodium Potassium Chloride Carbon Dioxide BUN Creatinine Glucose POC Glucose 69 L Calcium Phosphorus Magnesium ALT Alkaline Phosphatase Total Creatine Kinase CK-MB (CK-2) Rel Index Troponin T Albumin LDL Cholesterol Direct PTH Intact Salicylates Acetaminophen Crossmatch 02/24/19 02/24/19 02/25/19 04:55 05:41 04:45 WBC RBC Hgb Hct MCH MCHC RDW Lymph % (Auto) [place] % (Auto) Eos % (Auto) Lymph # [place] # Eos # Seg Neutrophils % Seg Neuts % (Manual) Lymphocytes % (Manual) Eosinophils % (Manual) Seg Neutrophils # Lymphocytes # (Manual) Eosinophils # (Manual) PT INR D-Dimer POC ABG pH 7.466 H POC ABG pCO2 POC ABG pO2 75 L ABG pO2 ABG HCO3 ABG Base Excess ABG Hemoglobin Oxyhemoglobin Sodium Potassium Chloride Carbon Dioxide BUN Creatinine 1.8 H Glucose 73 L POC Glucose 127 H Calcium Phosphorus Magnesium ALT Alkaline Phosphatase Total Creatine Kinase CK-MB (CK-2) Rel Index Troponin T Albumin LDL Cholesterol Direct PTH Intact Salicylates Acetaminophen Crossmatch 02/25/19 02/25/19 02/26/19 16:34 21:33 03:45 WBC RBC 2.96 L Hgb 8.0 L Hct 25.8 L MCH 27 L MCHC 31 L RDW 20.0 H Lymph % (Auto) [place] % (Auto) Eos % (Auto) Lymph # [place] # Eos # Seg Neutrophils % Seg Neuts % (Manual) Lymphocytes % (Manual) Eosinophils % (Manual) Seg Neutrophils # Lymphocytes # (Manual) Eosinophils # (Manual) PT INR D-Dimer POC ABG pH POC ABG pCO2 POC ABG pO2 ABG pO2 ABG HCO3 ABG Base Excess ABG Hemoglobin Oxyhemoglobin Sodium Potassium Chloride Carbon Dioxide BUN Creatinine Glucose POC Glucose 141 H 106 H Calcium Phosphorus Magnesium ALT Alkaline Phosphatase Total Creatine Kinase CK-MB (CK-2) Rel Index Troponin T Albumin LDL Cholesterol Direct PTH Intact Salicylates Acetaminophen Crossmatch 02/26/19 02/26/19 02/26/19 03:45 04:13 07:53 WBC RBC Hgb Hct MCH MCHC RDW Lymph % (Auto) [place] % (Auto) Eos % (Auto) Lymph # [place] # Eos # Seg Neutrophils % Seg Neuts % (Manual) Lymphocytes % (Manual) Eosinophils % (Manual) Seg Neutrophils # Lymphocytes # (Manual) Eosinophils # (Manual) PT INR D-Dimer POC ABG pH 7.470 H POC ABG pCO2 POC ABG pO2 ABG pO2 ABG HCO3 ABG Base Excess ABG Hemoglobin Oxyhemoglobin Sodium Potassium Chloride Carbon Dioxide BUN Creatinine 1.8 H Glucose POC Glucose 110 H Calcium Phosphorus Magnesium ALT Alkaline Phosphatase Total Creatine Kinase CK-MB (CK-2) Rel Index Troponin T Albumin LDL Cholesterol Direct PTH Intact Salicylates Acetaminophen Crossmatch 02/26/19 02/26/19 02/27/19 11:56 17:43 00:12 WBC RBC Hgb Hct MCH MCHC RDW Lymph % (Auto) [place] % (Auto) Eos % (Auto) Lymph # [place] # Eos # Seg Neutrophils % Seg Neuts % (Manual) Lymphocytes % (Manual) Eosinophils % (Manual) Seg Neutrophils # Lymphocytes # (Manual) Eosinophils # (Manual) PT INR D-Dimer POC ABG pH POC ABG pCO2 POC ABG pO2 ABG pO2 ABG HCO3 ABG Base Excess ABG Hemoglobin Oxyhemoglobin Sodium Potassium Chloride Carbon Dioxide BUN Creatinine Glucose POC Glucose 112 H 127 H 127 H Calcium Phosphorus Magnesium ALT Alkaline Phosphatase Total Creatine Kinase CK-MB (CK-2) Rel Index Troponin T Albumin LDL Cholesterol Direct PTH Intact Salicylates Acetaminophen Crossmatch 02/27/19 02/27/19 02/27/19 04:35 13:15 18:02 WBC RBC Hgb Hct MCH MCHC RDW Lymph % (Auto) [place] % (Auto) Eos % (Auto) Lymph # [place] # Eos # Seg Neutrophils % Seg Neuts % (Manual) Lymphocytes % (Manual) Eosinophils % (Manual) Seg Neutrophils # Lymphocytes # (Manual) Eosinophils # (Manual) PT INR D-Dimer POC ABG pH 7.483 H POC ABG pCO2 POC ABG pO2 61 L ABG pO2 ABG HCO3 ABG Base Excess ABG Hemoglobin Oxyhemoglobin Sodium Potassium Chloride Carbon Dioxide BUN Creatinine Glucose POC Glucose 143 H 106 H Calcium Phosphorus Magnesium ALT Alkaline Phosphatase Total Creatine Kinase CK-MB (CK-2) Rel Index Troponin T Albumin LDL Cholesterol Direct PTH Intact Salicylates Acetaminophen Crossmatch 02/28/19 02/28/19 02/28/19 05:50 11:59 17:52 WBC RBC Hgb Hct MCH MCHC RDW Lymph % (Auto) [place] % (Auto) Eos % (Auto) Lymph # [place] # Eos # Seg Neutrophils % Seg Neuts % (Manual) Lymphocytes % (Manual) Eosinophils % (Manual) Seg Neutrophils # Lymphocytes # (Manual) Eosinophils # (Manual) PT INR D-Dimer POC ABG pH POC ABG pCO2 POC ABG pO2 ABG pO2 ABG HCO3 ABG Base Excess ABG Hemoglobin Oxyhemoglobin Sodium Potassium Chloride Carbon Dioxide BUN Creatinine Glucose POC Glucose 134 H 128 H 142 H Calcium Phosphorus Magnesium ALT Alkaline Phosphatase Total Creatine Kinase CK-MB (CK-2) Rel Index Troponin T Albumin LDL Cholesterol Direct PTH Intact Salicylates Acetaminophen Crossmatch 02/28/19 03/01/19 03/01/19 23:13 05:40 09:39 WBC RBC Hgb Hct MCH MCHC RDW Lymph % (Auto) [place] % (Auto) Eos % (Auto) Lymph # [place] # Eos # Seg Neutrophils % Seg Neuts % (Manual) Lymphocytes % (Manual) Eosinophils % (Manual) Seg Neutrophils # Lymphocytes # (Manual) Eosinophils # (Manual) PT 16.3 H INR 1.35 H D-Dimer POC ABG pH POC ABG pCO2 POC ABG pO2 ABG pO2 ABG HCO3 ABG Base Excess ABG Hemoglobin Oxyhemoglobin Sodium Potassium Chloride Carbon Dioxide BUN Creatinine Glucose POC Glucose 112 H 111 H Calcium Phosphorus Magnesium ALT Alkaline Phosphatase Total Creatine Kinase CK-MB (CK-2) Rel Index Troponin T Albumin LDL Cholesterol Direct PTH Intact Salicylates Acetaminophen Crossmatch 03/01/19 03/01/19 03/01/19 11:56 13:54 17:59 WBC RBC Hgb Hct MCH MCHC RDW Lymph % (Auto) [place] % (Auto) Eos % (Auto) Lymph # [place] # Eos # Seg Neutrophils % Seg Neuts % (Manual) Lymphocytes % (Manual) Eosinophils % (Manual) Seg Neutrophils # Lymphocytes # (Manual) Eosinophils # (Manual) PT INR D-Dimer POC ABG pH POC ABG pCO2 POC ABG pO2 ABG pO2 ABG HCO3 ABG Base Excess ABG Hemoglobin Oxyhemoglobin Sodium Potassium Chloride Carbon Dioxide BUN 33 H Creatinine 2.8 H D Glucose 176 H POC Glucose 199 H 147 H Calcium Phosphorus Magnesium ALT Alkaline Phosphatase Total Creatine Kinase CK-MB (CK-2) Rel Index Troponin T Albumin LDL Cholesterol Direct PTH Intact Salicylates Acetaminophen Crossmatch 03/02/19 03/02/19 03/02/19 05:15 05:15 05:15 WBC RBC 2.73 L Hgb 7.4 L Hct 23.0 L MCH 27 L MCHC RDW 19.9 H Lymph % (Auto) [place] % (Auto) 7.9 H Eos % (Auto) 7.6 H Lymph # 1.0 L [place] # Eos # 0.5 H Seg Neutrophils % Seg Neuts % (Manual) Lymphocytes % (Manual) Eosinophils % (Manual) Seg Neutrophils # Lymphocytes # (Manual) Eosinophils # (Manual) PT INR D-Dimer POC ABG pH POC ABG pCO2 POC ABG pO2 ABG pO2 ABG HCO3 ABG Base Excess ABG Hemoglobin Oxyhemoglobin Sodium Potassium Chloride Carbon Dioxide BUN 43 H Creatinine 3.2 H Glucose POC Glucose Calcium Phosphorus 2.30 L Magnesium ALT Alkaline Phosphatase Total Creatine Kinase CK-MB (CK-2) Rel Index Troponin T Albumin LDL Cholesterol Direct PTH Intact 267.6 H Salicylates Acetaminophen Crossmatch 03/02/19 03/02/19 03/03/19 12:32 18:20 13:30 WBC RBC Hgb Hct MCH MCHC RDW Lymph % (Auto) [place] % (Auto) Eos % (Auto) Lymph # [place] # Eos # Seg Neutrophils % Seg Neuts % (Manual) Lymphocytes % (Manual) Eosinophils % (Manual) Seg Neutrophils # Lymphocytes # (Manual) Eosinophils # (Manual) PT INR D-Dimer POC ABG pH POC ABG pCO2 POC ABG pO2 ABG pO2 ABG HCO3 ABG Base Excess ABG Hemoglobin Oxyhemoglobin Sodium Potassium Chloride 97.3 L Carbon Dioxide BUN 26 H Creatinine 2.2 H Glucose 73 L POC Glucose 111 H 156 H Calcium Phosphorus Magnesium ALT Alkaline Phosphatase Total Creatine Kinase CK-MB (CK-2) Rel Index Troponin T Albumin LDL Cholesterol Direct PTH Intact Salicylates Acetaminophen Crossmatch 03/04/19 03/04/19 03/04/19 00:02 05:37 05:40 WBC RBC 2.63 L Hgb 7.2 L Hct 22.2 L MCH MCHC RDW 20.2 H Lymph % (Auto) 10.5 L [place] % (Auto) Eos % (Auto) 4.6 H Lymph # 0.7 L [place] # Eos # Seg Neutrophils % 76.9 H Seg Neuts % (Manual) Lymphocytes % (Manual) Eosinophils % (Manual) Seg Neutrophils # Lymphocytes # (Manual) Eosinophils # (Manual) PT INR D-Dimer POC ABG pH POC ABG pCO2 POC ABG pO2 ABG pO2 ABG HCO3 ABG Base Excess ABG Hemoglobin Oxyhemoglobin Sodium Potassium Chloride Carbon Dioxide BUN Creatinine Glucose POC Glucose 136 H 123 H Calcium Phosphorus Magnesium ALT Alkaline Phosphatase Total Creatine Kinase CK-MB (CK-2) Rel Index Troponin T Albumin LDL Cholesterol Direct PTH Intact Salicylates Acetaminophen Crossmatch 03/04/19 03/04/19 03/04/19 05:40 11:39 23:20 WBC RBC Hgb Hct MCH MCHC RDW Lymph % (Auto) [place] % (Auto) Eos % (Auto) Lymph # [place] # Eos # Seg Neutrophils % Seg Neuts % (Manual) Lymphocytes % (Manual) Eosinophils % (Manual) Seg Neutrophils # Lymphocytes # (Manual) Eosinophils # (Manual) PT INR D-Dimer POC ABG pH POC ABG pCO2 POC ABG pO2 ABG pO2 ABG HCO3 ABG Base Excess ABG Hemoglobin Oxyhemoglobin Sodium Potassium Chloride Carbon Dioxide BUN 34 H Creatinine 2.7 H Glucose 114 H POC Glucose 175 H 151 H Calcium Phosphorus Magnesium ALT Alkaline Phosphatase Total Creatine Kinase CK-MB (CK-2) Rel Index Troponin T Albumin LDL Cholesterol Direct PTH Intact Salicylates Acetaminophen Crossmatch 03/05/19 03/05/19 03/05/19 05:37 12:08 17:11 WBC RBC Hgb Hct MCH MCHC RDW Lymph % (Auto) [place] % (Auto) Eos % (Auto) Lymph # [place] # Eos # Seg Neutrophils % Seg Neuts % (Manual) Lymphocytes % (Manual) Eosinophils % (Manual) Seg Neutrophils # Lymphocytes # (Manual) Eosinophils # (Manual) PT INR D-Dimer POC ABG pH POC ABG pCO2 POC ABG pO2 ABG pO2 ABG HCO3 ABG Base Excess ABG Hemoglobin Oxyhemoglobin Sodium Potassium Chloride Carbon Dioxide BUN Creatinine Glucose POC Glucose 134 H 135 H 135 H Calcium Phosphorus Magnesium ALT Alkaline Phosphatase Total Creatine Kinase CK-MB (CK-2) Rel Index Troponin T Albumin LDL Cholesterol Direct PTH Intact Salicylates Acetaminophen Crossmatch 03/06/19 03/06/19 03/06/19 00:16 13:05 18:09 WBC RBC Hgb Hct MCH MCHC RDW Lymph % (Auto) [place] % (Auto) Eos % (Auto) Lymph # [place] # Eos # Seg Neutrophils % Seg Neuts % (Manual) Lymphocytes % (Manual) Eosinophils % (Manual) Seg Neutrophils # Lymphocytes # (Manual) Eosinophils # (Manual) PT INR D-Dimer POC ABG pH POC ABG pCO2 POC ABG pO2 ABG pO2 ABG HCO3 ABG Base Excess ABG Hemoglobin Oxyhemoglobin Sodium Potassium Chloride Carbon Dioxide BUN Creatinine Glucose POC Glucose 117 H 113 H 131 H Calcium Phosphorus Magnesium ALT Alkaline Phosphatase Total Creatine Kinase CK-MB (CK-2) Rel Index Troponin T Albumin LDL Cholesterol Direct PTH Intact Salicylates Acetaminophen Crossmatch 03/07/19 03/08/19 03/08/19 05:25 05:33 16:00 WBC RBC 2.44 L Hgb 6.6 L Hct 20.8 L MCH 27 L MCHC RDW 19.2 H Lymph % (Auto) [place] % (Auto) Eos % (Auto) 8.6 H Lymph # 0.8 L [place] # Eos # 0.5 H Seg Neutrophils % 70.7 H Seg Neuts % (Manual) Lymphocytes % (Manual) Eosinophils % (Manual) Seg Neutrophils # Lymphocytes # (Manual) Eosinophils # (Manual) PT INR D-Dimer POC ABG pH POC ABG pCO2 POC ABG pO2 ABG pO2 ABG HCO3 ABG Base Excess ABG Hemoglobin Oxyhemoglobin Sodium Potassium Chloride Carbon Dioxide BUN Creatinine Glucose POC Glucose 106 H 108 H Calcium Phosphorus Magnesium ALT Alkaline Phosphatase Total Creatine Kinase CK-MB (CK-2) Rel Index Troponin T Albumin LDL Cholesterol Direct PTH Intact Salicylates Acetaminophen Crossmatch 03/08/19 03/08/19 03/08/19 16:00 18:38 Unknown WBC RBC Hgb Hct MCH MCHC RDW Lymph % (Auto) [place] % (Auto) Eos % (Auto) Lymph # [place] # Eos # Seg Neutrophils % Seg Neuts % (Manual) Lymphocytes % (Manual) Eosinophils % (Manual) Seg Neutrophils # Lymphocytes # (Manual) Eosinophils # (Manual) PT INR D-Dimer POC ABG pH POC ABG pCO2 POC ABG pO2 ABG pO2 ABG HCO3 ABG Base Excess ABG Hemoglobin Oxyhemoglobin Sodium Potassium 5.4 H D Chloride Carbon Dioxide BUN 47 H Creatinine 2.6 H Glucose POC Glucose 123 H Calcium Phosphorus Magnesium ALT < 5 L Alkaline Phosphatase Total Creatine Kinase CK-MB (CK-2) Rel Index Troponin T Albumin 2.2 L LDL Cholesterol Direct PTH Intact Salicylates Acetaminophen Crossmatch See Detail 03/09/19 03/09/19 03/09/19 10:48 12:28 13:53 WBC RBC 2.85 L Hgb 7.7 L Hct 24.2 L MCH 27 L MCHC RDW 18.7 H Lymph % (Auto) [place] % (Auto) Eos % (Auto) Lymph # [place] # Eos # Seg Neutrophils % Seg Neuts % (Manual) Lymphocytes % (Manual) Eosinophils % (Manual) Seg Neutrophils # Lymphocytes # (Manual) Eosinophils # (Manual) PT INR D-Dimer POC ABG pH POC ABG pCO2 POC ABG pO2 ABG pO2 ABG HCO3 30.5 H ABG Base Excess 5.6 H ABG Hemoglobin 8.1 L Oxyhemoglobin 93.8 L Sodium Potassium Chloride Carbon Dioxide BUN Creatinine Glucose POC Glucose 114 H Calcium Phosphorus Magnesium ALT Alkaline Phosphatase Total Creatine Kinase CK-MB (CK-2) Rel Index Troponin T Albumin LDL Cholesterol Direct PTH Intact Salicylates Acetaminophen Crossmatch 03/09/19 03/09/19 03/10/19 17:58 23:53 12:01 WBC RBC Hgb Hct MCH MCHC RDW Lymph % (Auto) [place] % (Auto) Eos % (Auto) Lymph # [place] # Eos # Seg Neutrophils % Seg Neuts % (Manual) Lymphocytes % (Manual) Eosinophils % (Manual) Seg Neutrophils # Lymphocytes # (Manual) Eosinophils # (Manual) PT INR D-Dimer POC ABG pH POC ABG pCO2 POC ABG pO2 ABG pO2 ABG HCO3 ABG Base Excess ABG Hemoglobin Oxyhemoglobin Sodium Potassium Chloride Carbon Dioxide BUN Creatinine Glucose POC Glucose 108 H 128 H 144 H Calcium Phosphorus Magnesium ALT Alkaline Phosphatase Total Creatine Kinase CK-MB (CK-2) Rel Index Troponin T Albumin LDL Cholesterol Direct PTH Intact Salicylates Acetaminophen Crossmatch 03/10/19 03/11/19 03/11/19 16:50 00:24 05:02 WBC RBC Hgb Hct MCH MCHC RDW Lymph % (Auto) [place] % (Auto) Eos % (Auto) Lymph # [place] # Eos # Seg Neutrophils % Seg Neuts % (Manual) Lymphocytes % (Manual) Eosinophils % (Manual) Seg Neutrophils # Lymphocytes # (Manual) Eosinophils # (Manual) PT INR D-Dimer POC ABG pH POC ABG pCO2 POC ABG pO2 ABG pO2 ABG HCO3 ABG Base Excess ABG Hemoglobin Oxyhemoglobin Sodium Potassium Chloride Carbon Dioxide BUN Creatinine Glucose POC Glucose 147 H 123 H 120 H Calcium Phosphorus Magnesium ALT Alkaline Phosphatase Total Creatine Kinase CK-MB (CK-2) Rel Index Troponin T Albumin LDL Cholesterol Direct PTH Intact Salicylates Acetaminophen Crossmatch 03/11/19 03/11/19 03/11/19 11:56 12:20 18:37 WBC RBC Hgb Hct MCH MCHC RDW Lymph % (Auto) [place] % (Auto) Eos % (Auto) Lymph # [place] # Eos # Seg Neutrophils % Seg Neuts % (Manual) Lymphocytes % (Manual) Eosinophils % (Manual) Seg Neutrophils # Lymphocytes # (Manual) Eosinophils # (Manual) PT INR D-Dimer POC ABG pH POC ABG pCO2 POC ABG pO2 ABG pO2 ABG HCO3 ABG Base Excess ABG Hemoglobin Oxyhemoglobin Sodium Potassium 5.2 H Chloride Carbon Dioxide BUN Creatinine Glucose POC Glucose 123 H 125 H Calcium Phosphorus Magnesium ALT Alkaline Phosphatase Total Creatine Kinase CK-MB (CK-2) Rel Index Troponin T Albumin LDL Cholesterol Direct PTH Intact Salicylates Acetaminophen Crossmatch 03/11/19 03/12/19 03/12/19 22:52 12:04 18:25 WBC RBC Hgb Hct MCH MCHC RDW Lymph % (Auto) [place] % (Auto) Eos % (Auto) Lymph # [place] # Eos # Seg Neutrophils % Seg Neuts % (Manual) Lymphocytes % (Manual) Eosinophils % (Manual) Seg Neutrophils # Lymphocytes # (Manual) Eosinophils # (Manual) PT INR D-Dimer POC ABG pH POC ABG pCO2 POC ABG pO2 ABG pO2 ABG HCO3 ABG Base Excess ABG Hemoglobin Oxyhemoglobin Sodium Potassium Chloride Carbon Dioxide BUN Creatinine Glucose POC Glucose 110 H 106 H 118 H Calcium Phosphorus Magnesium ALT Alkaline Phosphatase Total Creatine Kinase CK-MB (CK-2) Rel Index Troponin T Albumin LDL Cholesterol Direct PTH Intact Salicylates Acetaminophen Crossmatch 03/12/19 03/13/19 03/13/19 23:36 04:38 04:38 WBC RBC 2.95 L Hgb 7.9 L Hct 24.9 L MCH 27 L MCHC RDW 19.9 H Lymph % (Auto) 11.1 L [place] % (Auto) 8.1 H Eos % (Auto) 4.4 H Lymph # 0.9 L [place] # Eos # Seg Neutrophils % 75.4 H Seg Neuts % (Manual) Lymphocytes % (Manual) Eosinophils % (Manual) Seg Neutrophils # Lymphocytes # (Manual) Eosinophils # (Manual) PT INR D-Dimer POC ABG pH POC ABG pCO2 POC ABG pO2 ABG pO2 ABG HCO3 ABG Base Excess ABG Hemoglobin Oxyhemoglobin Sodium 136 L Potassium 5.1 H Chloride 93.8 L Carbon Dioxide BUN 48 H Creatinine 2.7 H Glucose 102 H POC Glucose 115 H Calcium Phosphorus Magnesium ALT < 5 L Alkaline Phosphatase 143 H Total Creatine Kinase CK-MB (CK-2) Rel Index Troponin T Albumin 2.5 L LDL Cholesterol Direct PTH Intact Salicylates Acetaminophen Crossmatch 03/13/19 03/13/19 03/13/19 05:33 13:37 18:03 WBC RBC Hgb Hct MCH MCHC RDW Lymph % (Auto) [place] % (Auto) Eos % (Auto) Lymph # [place] # Eos # Seg Neutrophils % Seg Neuts % (Manual) Lymphocytes % (Manual) Eosinophils % (Manual) Seg Neutrophils # Lymphocytes # (Manual) Eosinophils # (Manual) PT INR D-Dimer POC ABG pH POC ABG pCO2 POC ABG pO2 ABG pO2 ABG HCO3 ABG Base Excess ABG Hemoglobin Oxyhemoglobin Sodium Potassium Chloride Carbon Dioxide BUN Creatinine Glucose POC Glucose 140 H 150 H 158 H Calcium Phosphorus Magnesium ALT Alkaline Phosphatase Total Creatine Kinase CK-MB (CK-2) Rel Index Troponin T Albumin LDL Cholesterol Direct PTH Intact Salicylates Acetaminophen Crossmatch 03/13/19 03/14/19 03/14/19 23:32 05:24 12:20 WBC RBC Hgb Hct MCH MCHC RDW Lymph % (Auto) [place] % (Auto) Eos % (Auto) Lymph # [place] # Eos # Seg Neutrophils % Seg Neuts % (Manual) Lymphocytes % (Manual) Eosinophils % (Manual) Seg Neutrophils # Lymphocytes # (Manual) Eosinophils # (Manual) PT INR D-Dimer POC ABG pH POC ABG pCO2 POC ABG pO2 ABG pO2 ABG HCO3 ABG Base Excess ABG Hemoglobin Oxyhemoglobin Sodium Potassium Chloride Carbon Dioxide BUN Creatinine Glucose POC Glucose 162 H 146 H 127 H Calcium Phosphorus Magnesium ALT Alkaline Phosphatase Total Creatine Kinase CK-MB (CK-2) Rel Index Troponin T Albumin LDL Cholesterol Direct PTH Intact Salicylates Acetaminophen Crossmatch 03/14/19 03/14/19 03/15/19 18:05 23:57 04:38 WBC 12.8 H RBC 3.11 L Hgb 8.1 L Hct 26.5 L MCH 26 L MCHC 31 L RDW 19.7 H Lymph % (Auto) 4.4 L [place] % (Auto) 7.4 H Eos % (Auto) Lymph # 0.6 L [place] # 0.9 H Eos # Seg Neutrophils % 87.3 H Seg Neuts % (Manual) Lymphocytes % (Manual) Eosinophils % (Manual) Seg Neutrophils # 11.2 H Lymphocytes # (Manual) Eosinophils # (Manual) PT INR D-Dimer POC ABG pH POC ABG pCO2 POC ABG pO2 ABG pO2 ABG HCO3 ABG Base Excess ABG Hemoglobin Oxyhemoglobin Sodium Potassium Chloride Carbon Dioxide BUN Creatinine Glucose POC Glucose 142 H 155 H Calcium Phosphorus Magnesium ALT Alkaline Phosphatase Total Creatine Kinase CK-MB (CK-2) Rel Index Troponin T Albumin LDL Cholesterol Direct PTH Intact Salicylates Acetaminophen Crossmatch 03/15/19 03/15/19 03/15/19 04:38 05:31 11:32 WBC RBC Hgb Hct MCH MCHC RDW Lymph % (Auto) [place] % (Auto) Eos % (Auto) Lymph # [place] # Eos # Seg Neutrophils % Seg Neuts % (Manual) Lymphocytes % (Manual) Eosinophils % (Manual) Seg Neutrophils # Lymphocytes # (Manual) Eosinophils # (Manual) PT INR D-Dimer POC ABG pH POC ABG pCO2 POC ABG pO2 ABG pO2 ABG HCO3 ABG Base Excess ABG Hemoglobin Oxyhemoglobin Sodium 135 L Potassium Chloride 91.9 L Carbon Dioxide BUN 54 H Creatinine 2.8 H Glucose 128 H POC Glucose 160 H 109 H Calcium 11.1 H Phosphorus Magnesium ALT Alkaline Phosphatase 161 H Total Creatine Kinase CK-MB (CK-2) Rel Index Troponin T Albumin 2.3 L LDL Cholesterol Direct PTH Intact Salicylates Acetaminophen Crossmatch 03/15/19 03/15/19 03/16/19 18:15 23:41 05:40 WBC RBC Hgb Hct MCH MCHC RDW Lymph % (Auto) [place] % (Auto) Eos % (Auto) Lymph # [place] # Eos # Seg Neutrophils % Seg Neuts % (Manual) Lymphocytes % (Manual) Eosinophils % (Manual) Seg Neutrophils # Lymphocytes # (Manual) Eosinophils # (Manual) PT INR D-Dimer POC ABG pH POC ABG pCO2 POC ABG pO2 ABG pO2 ABG HCO3 ABG Base Excess ABG Hemoglobin Oxyhemoglobin Sodium Potassium Chloride Carbon Dioxide BUN Creatinine Glucose POC Glucose 151 H 110 H 163 H Calcium Phosphorus Magnesium ALT Alkaline Phosphatase Total Creatine Kinase CK-MB (CK-2) Rel Index Troponin T Albumin LDL Cholesterol Direct PTH Intact Salicylates Acetaminophen Crossmatch 03/16/19 03/16/19 03/16/19 11:55 17:04 23:58 WBC RBC Hgb Hct MCH MCHC RDW Lymph % (Auto) [place] % (Auto) Eos % (Auto) Lymph # [place] # Eos # Seg Neutrophils % Seg Neuts % (Manual) Lymphocytes % (Manual) Eosinophils % (Manual) Seg Neutrophils # Lymphocytes # (Manual) Eosinophils # (Manual) PT INR D-Dimer POC ABG pH POC ABG pCO2 POC ABG pO2 ABG pO2 ABG HCO3 ABG Base Excess ABG Hemoglobin Oxyhemoglobin Sodium Potassium Chloride Carbon Dioxide BUN Creatinine Glucose POC Glucose 114 H 147 H 192 H Calcium Phosphorus Magnesium ALT Alkaline Phosphatase Total Creatine Kinase CK-MB (CK-2) Rel Index Troponin T Albumin LDL Cholesterol Direct PTH Intact Salicylates Acetaminophen Crossmatch 03/17/19 03/17/19 03/17/19 05:53 11:17 17:01 WBC RBC Hgb Hct MCH MCHC RDW Lymph % (Auto) [place] % (Auto) Eos % (Auto) Lymph # [place] # Eos # Seg Neutrophils % Seg Neuts % (Manual) Lymphocytes % (Manual) Eosinophils % (Manual) Seg Neutrophils # Lymphocytes # (Manual) Eosinophils # (Manual) PT INR D-Dimer POC ABG pH POC ABG pCO2 POC ABG pO2 ABG pO2 ABG HCO3 ABG Base Excess ABG Hemoglobin Oxyhemoglobin Sodium Potassium Chloride Carbon Dioxide BUN Creatinine Glucose POC Glucose 151 H 161 H 152 H Calcium Phosphorus Magnesium ALT Alkaline Phosphatase Total Creatine Kinase CK-MB (CK-2) Rel Index Troponin T Albumin LDL Cholesterol Direct PTH Intact Salicylates Acetaminophen Crossmatch 03/17/19 03/18/19 03/18/19 21:47 04:15 04:44 WBC RBC Hgb Hct MCH MCHC RDW Lymph % (Auto) [place] % (Auto) Eos % (Auto) Lymph # [place] # Eos # Seg Neutrophils % Seg Neuts % (Manual) Lymphocytes % (Manual) Eosinophils % (Manual) Seg Neutrophils # Lymphocytes # (Manual) Eosinophils # (Manual) PT INR D-Dimer POC ABG pH POC ABG pCO2 POC ABG pO2 ABG pO2 102.8 H ABG HCO3 28.3 H ABG Base Excess ABG Hemoglobin 10.4 L Oxyhemoglobin 94.5 L Sodium Potassium Chloride Carbon Dioxide BUN Creatinine Glucose POC Glucose 170 H 150 H Calcium Phosphorus Magnesium ALT Alkaline Phosphatase Total Creatine Kinase CK-MB (CK-2) Rel Index Troponin T Albumin LDL Cholesterol Direct PTH Intact Salicylates Acetaminophen Crossmatch 03/18/19 03/18/19 03/18/19 06:38 12:12 17:47 WBC RBC Hgb Hct MCH MCHC RDW Lymph % (Auto) [place] % (Auto) Eos % (Auto) Lymph # [place] # Eos # Seg Neutrophils % Seg Neuts % (Manual) Lymphocytes % (Manual) Eosinophils % (Manual) Seg Neutrophils # Lymphocytes # (Manual) Eosinophils # (Manual) PT INR D-Dimer POC ABG pH 7.510 H POC ABG pCO2 POC ABG pO2 164 H ABG pO2 ABG HCO3 ABG Base Excess ABG Hemoglobin Oxyhemoglobin Sodium Potassium Chloride Carbon Dioxide BUN Creatinine Glucose POC Glucose 145 H 149 H Calcium Phosphorus Magnesium ALT Alkaline Phosphatase Total Creatine Kinase CK-MB (CK-2) Rel Index Troponin T Albumin LDL Cholesterol Direct PTH Intact Salicylates Acetaminophen Crossmatch 03/18/19 03/19/19 03/19/19 23:25 01:11 04:23 WBC 15.6 H RBC 2.51 L Hgb 6.5 L Hct 21.6 L MCH 26 L MCHC 30 L RDW 19.8 H Lymph % (Auto) 6.0 L [place] % (Auto) Eos % (Auto) Lymph # 0.9 L [place] # 1.0 H Eos # Seg Neutrophils % 85.5 H Seg Neuts % (Manual) Lymphocytes % (Manual) Eosinophils % (Manual) Seg Neutrophils # 13.4 H Lymphocytes # (Manual) Eosinophils # (Manual) PT INR D-Dimer POC ABG pH POC ABG pCO2 POC ABG pO2 ABG pO2 78.3 L ABG HCO3 30.7 H ABG Base Excess 5.8 H ABG Hemoglobin 5.8 L Oxyhemoglobin 94.6 L Sodium Potassium Chloride Carbon Dioxide BUN Creatinine Glucose POC Glucose 190 H Calcium Phosphorus Magnesium ALT Alkaline Phosphatase Total Creatine Kinase CK-MB (CK-2) Rel Index Troponin T Albumin LDL Cholesterol Direct PTH Intact Salicylates Acetaminophen Crossmatch 03/19/19 03/19/19 03/19/19 05:22 05:35 08:54 WBC RBC Hgb Hct MCH MCHC RDW Lymph % (Auto) [place] % (Auto) Eos % (Auto) Lymph # [place] # Eos # Seg Neutrophils % Seg Neuts % (Manual) Lymphocytes % (Manual) Eosinophils % (Manual) Seg Neutrophils # Lymphocytes # (Manual) Eosinophils # (Manual) PT INR D-Dimer POC ABG pH POC ABG pCO2 POC ABG pO2 ABG pO2 ABG HCO3 ABG Base Excess ABG Hemoglobin Oxyhemoglobin Sodium Potassium Chloride Carbon Dioxide BUN Creatinine Glucose POC Glucose 167 H Calcium Phosphorus Magnesium ALT Alkaline Phosphatase Total Creatine Kinase CK-MB (CK-2) Rel Index Troponin T Albumin LDL Cholesterol Direct PTH Intact Salicylates Acetaminophen Crossmatch See Detail See Detail 03/19/19 03/19/19 03/19/19 12:36 17:02 23:25 WBC RBC Hgb Hct MCH MCHC RDW Lymph % (Auto) [place] % (Auto) Eos % (Auto) Lymph # [place] # Eos # Seg Neutrophils % Seg Neuts % (Manual) Lymphocytes % (Manual) Eosinophils % (Manual) Seg Neutrophils # Lymphocytes # (Manual) Eosinophils # (Manual) PT INR D-Dimer POC ABG pH POC ABG pCO2 POC ABG pO2 ABG pO2 ABG HCO3 ABG Base Excess ABG Hemoglobin Oxyhemoglobin Sodium Potassium Chloride Carbon Dioxide BUN Creatinine Glucose POC Glucose 167 H 135 H 136 H Calcium Phosphorus Magnesium ALT Alkaline Phosphatase Total Creatine Kinase CK-MB (CK-2) Rel Index Troponin T Albumin LDL Cholesterol Direct PTH Intact Salicylates Acetaminophen Crossmatch 03/20/19 03/20/19 03/20/19 05:38 08:40 08:40 WBC RBC 2.61 L Hgb 7.1 L Hct 22.0 L MCH 27 L MCHC RDW 19.6 H Lymph % (Auto) 8.2 L [place] % (Auto) 8.3 H Eos % (Auto) 5.7 H Lymph # 0.8 L [place] # Eos # 0.5 H Seg Neutrophils % 77.3 H Seg Neuts % (Manual) Lymphocytes % (Manual) Eosinophils % (Manual) Seg Neutrophils # Lymphocytes # (Manual) Eosinophils # (Manual) PT INR D-Dimer POC ABG pH POC ABG pCO2 POC ABG pO2 ABG pO2 ABG HCO3 ABG Base Excess ABG Hemoglobin Oxyhemoglobin Sodium Potassium Chloride 95.9 L Carbon Dioxide BUN 69 H Creatinine 2.8 H Glucose 115 H POC Glucose 134 H Calcium 10.5 H Phosphorus Magnesium ALT Alkaline Phosphatase Total Creatine Kinase CK-MB (CK-2) Rel Index Troponin T Albumin LDL Cholesterol Direct PTH Intact Salicylates Acetaminophen Crossmatch 03/20/19 03/20/19 03/20/19 12:13 18:04 23:49 WBC RBC Hgb Hct MCH MCHC RDW Lymph % (Auto) [place] % (Auto) Eos % (Auto) Lymph # [place] # Eos # Seg Neutrophils % Seg Neuts % (Manual) Lymphocytes % (Manual) Eosinophils % (Manual) Seg Neutrophils # Lymphocytes # (Manual) Eosinophils # (Manual) PT INR D-Dimer POC ABG pH POC ABG pCO2 POC ABG pO2 ABG pO2 ABG HCO3 ABG Base Excess ABG Hemoglobin Oxyhemoglobin Sodium Potassium Chloride Carbon Dioxide BUN Creatinine Glucose POC Glucose 144 H 165 H 172 H Calcium Phosphorus Magnesium ALT Alkaline Phosphatase Total Creatine Kinase CK-MB (CK-2) Rel Index Troponin T Albumin LDL Cholesterol Direct PTH Intact Salicylates Acetaminophen Crossmatch 03/21/19 03/21/19 03/21/19 05:00 06:29 06:30 WBC RBC 2.72 L Hgb 7.4 L Hct 22.9 L MCH 27 L MCHC RDW 19.4 H Lymph % (Auto) [place] % (Auto) Eos % (Auto) Lymph # [place] # Eos # Seg Neutrophils % Seg Neuts % (Manual) 81.0 H Lymphocytes % (Manual) 8.0 L Eosinophils % (Manual) 8.0 H Seg Neutrophils # Lymphocytes # (Manual) 0.7 L Eosinophils # (Manual) 0.7 H PT INR D-Dimer POC ABG pH POC ABG pCO2 POC ABG pO2 ABG pO2 ABG HCO3 ABG Base Excess ABG Hemoglobin Oxyhemoglobin Sodium Potassium Chloride Carbon Dioxide 33 H BUN 43 H Creatinine 1.7 H Glucose 145 H POC Glucose 156 H Calcium Phosphorus Magnesium ALT Alkaline Phosphatase 212 H Total Creatine Kinase CK-MB (CK-2) Rel Index Troponin T Albumin 2.2 L LDL Cholesterol Direct PTH Intact Salicylates Acetaminophen Crossmatch 03/21/19 03/21/19 03/22/19 12:02 18:07 00:21 WBC RBC Hgb Hct MCH MCHC RDW Lymph % (Auto) [place] % (Auto) Eos % (Auto) Lymph # [place] # Eos # Seg Neutrophils % Seg Neuts % (Manual) Lymphocytes % (Manual) Eosinophils % (Manual) Seg Neutrophils # Lymphocytes # (Manual) Eosinophils # (Manual) PT INR D-Dimer POC ABG pH POC ABG pCO2 POC ABG pO2 ABG pO2 ABG HCO3 ABG Base Excess ABG Hemoglobin Oxyhemoglobin Sodium Potassium Chloride Carbon Dioxide BUN Creatinine Glucose POC Glucose 163 H 144 H 153 H Calcium Phosphorus Magnesium ALT Alkaline Phosphatase Total Creatine Kinase CK-MB (CK-2) Rel Index Troponin T Albumin LDL Cholesterol Direct PTH Intact Salicylates Acetaminophen Crossmatch 03/22/19 03/22/19 03/22/19 05:23 05:23 05:31 WBC RBC 2.58 L Hgb 7.1 L Hct 21.8 L MCH 27 L MCHC RDW 19.2 H Lymph % (Auto) [place] % (Auto) Eos % (Auto) Lymph # [place] # Eos # Seg Neutrophils % Seg Neuts % (Manual) Lymphocytes % (Manual) Eosinophils % (Manual) Seg Neutrophils # Lymphocytes # (Manual) Eosinophils # (Manual) PT INR D-Dimer POC ABG pH POC ABG pCO2 POC ABG pO2 ABG pO2 ABG HCO3 ABG Base Excess ABG Hemoglobin Oxyhemoglobin Sodium 147 H Potassium Chloride Carbon Dioxide BUN 68 H Creatinine 2.5 H Glucose POC Glucose 116 H Calcium 10.3 H Phosphorus Magnesium ALT Alkaline Phosphatase Total Creatine Kinase CK-MB (CK-2) Rel Index Troponin T Albumin LDL Cholesterol Direct PTH Intact Salicylates Acetaminophen Crossmatch 03/22/19 03/22/19 03/22/19 08:48 12:37 17:35 WBC RBC Hgb Hct MCH MCHC RDW Lymph % (Auto) [place] % (Auto) Eos % (Auto) Lymph # [place] # Eos # Seg Neutrophils % Seg Neuts % (Manual) Lymphocytes % (Manual) Eosinophils % (Manual) Seg Neutrophils # Lymphocytes # (Manual) Eosinophils # (Manual) PT INR D-Dimer POC ABG pH POC ABG pCO2 POC ABG pO2 ABG pO2 ABG HCO3 ABG Base Excess ABG Hemoglobin Oxyhemoglobin Sodium Potassium Chloride Carbon Dioxide BUN Creatinine Glucose POC Glucose 143 H 155 H Calcium Phosphorus Magnesium ALT Alkaline Phosphatase Total Creatine Kinase CK-MB (CK-2) Rel Index Troponin T Albumin LDL Cholesterol Direct PTH Intact Salicylates Acetaminophen Crossmatch See Detail 03/23/19 03/23/19 03/23/19 00:07 04:00 04:00 WBC 11.2 H RBC 2.32 L Hgb 6.4 L Hct 19.7 L* MCH MCHC RDW 19.4 H Lymph % (Auto) [place] % (Auto) Eos % (Auto) Lymph # [place] # Eos # Seg Neutrophils % Seg Neuts % (Manual) Lymphocytes % (Manual) Eosinophils % (Manual) Seg Neutrophils # Lymphocytes # (Manual) Eosinophils # (Manual) PT INR D-Dimer POC ABG pH POC ABG pCO2 POC ABG pO2 ABG pO2 ABG HCO3 ABG Base Excess ABG Hemoglobin Oxyhemoglobin Sodium 147 H Potassium 5.2 H Chloride Carbon Dioxide BUN 86 H Creatinine 3.2 H Glucose 128 H POC Glucose 135 H Calcium 10.3 H Phosphorus Magnesium ALT Alkaline Phosphatase Total Creatine Kinase CK-MB (CK-2) Rel Index Troponin T Albumin LDL Cholesterol Direct PTH Intact Salicylates Acetaminophen Crossmatch 03/23/19 03/23/19 03/23/19 05:21 11:36 11:36 WBC RBC Hgb 7.9 L Hct 25.0 L MCH MCHC RDW Lymph % (Auto) [place] % (Auto) Eos % (Auto) Lymph # [place] # Eos # Seg Neutrophils % Seg Neuts % (Manual) Lymphocytes % (Manual) Eosinophils % (Manual) Seg Neutrophils # Lymphocytes # (Manual) Eosinophils # (Manual) PT INR D-Dimer POC ABG pH POC ABG pCO2 POC ABG pO2 ABG pO2 ABG HCO3 ABG Base Excess ABG Hemoglobin Oxyhemoglobin Sodium Potassium Chloride Carbon Dioxide BUN Creatinine Glucose POC Glucose 132 H 147 H Calcium Phosphorus Magnesium ALT Alkaline Phosphatase Total Creatine Kinase CK-MB (CK-2) Rel Index Troponin T Albumin LDL Cholesterol Direct PTH Intact Salicylates Acetaminophen Crossmatch 03/23/19 03/24/19 03/24/19 17:31 01:22 04:20 WBC 12.2 H RBC 3.05 L Hgb 8.3 L Hct 25.9 L MCH 27 L MCHC RDW 18.7 H Lymph % (Auto) [place] % (Auto) Eos % (Auto) Lymph # [place] # Eos # Seg Neutrophils % Seg Neuts % (Manual) Lymphocytes % (Manual) Eosinophils % (Manual) Seg Neutrophils # Lymphocytes # (Manual) Eosinophils # (Manual) PT INR D-Dimer POC ABG pH POC ABG pCO2 POC ABG pO2 ABG pO2 ABG HCO3 ABG Base Excess ABG Hemoglobin Oxyhemoglobin Sodium Potassium Chloride Carbon Dioxide BUN Creatinine Glucose POC Glucose 182 H 113 H Calcium Phosphorus Magnesium ALT Alkaline Phosphatase Total Creatine Kinase CK-MB (CK-2) Rel Index Troponin T Albumin LDL Cholesterol Direct PTH Intact Salicylates Acetaminophen Crossmatch 03/24/19 03/24/19 03/24/19 04:20 11:59 18:14 WBC RBC Hgb Hct MCH MCHC RDW Lymph % (Auto) [place] % (Auto) Eos % (Auto) Lymph # [place] # Eos # Seg Neutrophils % Seg Neuts % (Manual) Lymphocytes % (Manual) Eosinophils % (Manual) Seg Neutrophils # Lymphocytes # (Manual) Eosinophils # (Manual) PT INR D-Dimer POC ABG pH POC ABG pCO2 POC ABG pO2 ABG pO2 ABG HCO3 ABG Base Excess ABG Hemoglobin Oxyhemoglobin Sodium Potassium Chloride 94.8 L Carbon Dioxide 32 H BUN 53 H Creatinine 2.3 H Glucose POC Glucose 163 H 134 H Calcium Phosphorus Magnesium ALT Alkaline Phosphatase Total Creatine Kinase CK-MB (CK-2) Rel Index Troponin T Albumin LDL Cholesterol Direct PTH Intact Salicylates Acetaminophen Crossmatch 03/24/19 03/25/19 03/25/19 23:15 05:52 12:02 WBC RBC Hgb Hct MCH MCHC RDW Lymph % (Auto) [place] % (Auto) Eos % (Auto) Lymph # [place] # Eos # Seg Neutrophils % Seg Neuts % (Manual) Lymphocytes % (Manual) Eosinophils % (Manual) Seg Neutrophils # Lymphocytes # (Manual) Eosinophils # (Manual) PT INR D-Dimer POC ABG pH POC ABG pCO2 POC ABG pO2 ABG pO2 ABG HCO3 ABG Base Excess ABG Hemoglobin Oxyhemoglobin Sodium Potassium Chloride Carbon Dioxide BUN Creatinine Glucose POC Glucose 129 H 123 H 125 H Calcium Phosphorus Magnesium ALT Alkaline Phosphatase Total Creatine Kinase CK-MB (CK-2) Rel Index Troponin T Albumin LDL Cholesterol Direct PTH Intact Salicylates Acetaminophen Crossmatch 03/25/19 03/26/19 03/26/19 17:27 00:30 05:35 WBC RBC 3.01 L Hgb 8.1 L Hct 25.7 L MCH 27 L MCHC RDW 19.2 H Lymph % (Auto) 11.4 L [place] % (Auto) Eos % (Auto) 8.0 H Lymph # 1.0 L [place] # Eos # 0.7 H Seg Neutrophils % 73.9 H Seg Neuts % (Manual) Lymphocytes % (Manual) Eosinophils % (Manual) Seg Neutrophils # Lymphocytes # (Manual) Eosinophils # (Manual) PT INR D-Dimer POC ABG pH POC ABG pCO2 POC ABG pO2 ABG pO2 ABG HCO3 ABG Base Excess ABG Hemoglobin Oxyhemoglobin Sodium Potassium Chloride Carbon Dioxide BUN Creatinine Glucose POC Glucose 130 H 129 H Calcium Phosphorus Magnesium ALT Alkaline Phosphatase Total Creatine Kinase CK-MB (CK-2) Rel Index Troponin T Albumin LDL Cholesterol Direct PTH Intact Salicylates Acetaminophen Crossmatch 03/26/19 03/26/19 03/26/19 05:35 05:45 12:16 WBC RBC Hgb Hct MCH MCHC RDW Lymph % (Auto) [place] % (Auto) Eos % (Auto) Lymph # [place] # Eos # Seg Neutrophils % Seg Neuts % (Manual) Lymphocytes % (Manual) Eosinophils % (Manual) Seg Neutrophils # Lymphocytes # (Manual) Eosinophils # (Manual) PT INR D-Dimer POC ABG pH POC ABG pCO2 POC ABG pO2 ABG pO2 ABG HCO3 ABG Base Excess ABG Hemoglobin Oxyhemoglobin Sodium Potassium Chloride 94.9 L Carbon Dioxide 31 H BUN 44 H Creatinine 2.0 H Glucose POC Glucose 118 H 107 H Calcium Phosphorus Magnesium ALT Alkaline Phosphatase Total Creatine Kinase CK-MB (CK-2) Rel Index Troponin T Albumin LDL Cholesterol Direct PTH Intact Salicylates Acetaminophen Crossmatch 03/26/19 03/27/19 03/27/19 17:56 00:36 05:37 WBC RBC Hgb Hct MCH MCHC RDW Lymph % (Auto) [place] % (Auto) Eos % (Auto) Lymph # [place] # Eos # Seg Neutrophils % Seg Neuts % (Manual) Lymphocytes % (Manual) Eosinophils % (Manual) Seg Neutrophils # Lymphocytes # (Manual) Eosinophils # (Manual) PT INR D-Dimer POC ABG pH POC ABG pCO2 POC ABG pO2 ABG pO2 ABG HCO3 ABG Base Excess ABG Hemoglobin Oxyhemoglobin Sodium Potassium Chloride Carbon Dioxide BUN Creatinine Glucose POC Glucose 107 H 110 H 122 H Calcium Phosphorus Magnesium ALT Alkaline Phosphatase Total Creatine Kinase CK-MB (CK-2) Rel Index Troponin T Albumin LDL Cholesterol Direct PTH Intact Salicylates Acetaminophen Crossmatch 03/27/19 03/27/19 03/28/19 11:22 18:00 05:17 WBC RBC Hgb Hct MCH MCHC RDW Lymph % (Auto) [place] % (Auto) Eos % (Auto) Lymph # [place] # Eos # Seg Neutrophils % Seg Neuts % (Manual) Lymphocytes % (Manual) Eosinophils % (Manual) Seg Neutrophils # Lymphocytes # (Manual) Eosinophils # (Manual) PT INR D-Dimer POC ABG pH POC ABG pCO2 POC ABG pO2 ABG pO2 ABG HCO3 ABG Base Excess ABG Hemoglobin Oxyhemoglobin Sodium Potassium Chloride Carbon Dioxide BUN Creatinine Glucose POC Glucose 120 H 111 H 107 H Calcium Phosphorus Magnesium ALT Alkaline Phosphatase Total Creatine Kinase CK-MB (CK-2) Rel Index Troponin T Albumin LDL Cholesterol Direct PTH Intact Salicylates Acetaminophen Crossmatch 03/28/19 03/28/19 03/29/19 12:27 18:08 05:47 WBC RBC Hgb Hct MCH MCHC RDW Lymph % (Auto) [place] % (Auto) Eos % (Auto) Lymph # [place] # Eos # Seg Neutrophils % Seg Neuts % (Manual) Lymphocytes % (Manual) Eosinophils % (Manual) Seg Neutrophils # Lymphocytes # (Manual) Eosinophils # (Manual) PT INR D-Dimer POC ABG pH POC ABG pCO2 POC ABG pO2 ABG pO2 ABG HCO3 ABG Base Excess ABG Hemoglobin Oxyhemoglobin Sodium Potassium Chloride Carbon Dioxide BUN Creatinine Glucose POC Glucose 114 H 121 H 112 H Calcium Phosphorus Magnesium ALT Alkaline Phosphatase Total Creatine Kinase CK-MB (CK-2) Rel Index Troponin T Albumin LDL Cholesterol Direct PTH Intact Salicylates Acetaminophen Crossmatch 03/29/19 03/29/19 03/30/19 12:14 18:08 00:31 WBC RBC Hgb Hct MCH MCHC RDW Lymph % (Auto) [place] % (Auto) Eos % (Auto) Lymph # [place] # Eos # Seg Neutrophils % Seg Neuts % (Manual) Lymphocytes % (Manual) Eosinophils % (Manual) Seg Neutrophils # Lymphocytes # (Manual) Eosinophils # (Manual) PT INR D-Dimer POC ABG pH POC ABG pCO2 POC ABG pO2 ABG pO2 ABG HCO3 ABG Base Excess ABG Hemoglobin Oxyhemoglobin Sodium Potassium Chloride Carbon Dioxide BUN Creatinine Glucose POC Glucose 117 H 140 H 114 H Calcium Phosphorus Magnesium ALT Alkaline Phosphatase Total Creatine Kinase CK-MB (CK-2) Rel Index Troponin T Albumin LDL Cholesterol Direct PTH Intact Salicylates Acetaminophen Crossmatch 03/30/19 03/30/19 03/30/19 10:13 10:13 23:53 WBC RBC 2.81 L Hgb 7.7 L Hct 24.3 L MCH 27 L MCHC RDW 19.0 H Lymph % (Auto) 12.2 L [place] % (Auto) Eos % (Auto) 7.9 H Lymph # 1.0 L [place] # Eos # 0.6 H Seg Neutrophils % 72.3 H Seg Neuts % (Manual) Lymphocytes % (Manual) Eosinophils % (Manual) Seg Neutrophils # Lymphocytes # (Manual) Eosinophils # (Manual) PT INR D-Dimer POC ABG pH POC ABG pCO2 POC ABG pO2 ABG pO2 ABG HCO3 ABG Base Excess ABG Hemoglobin Oxyhemoglobin Sodium Potassium 5.1 H Chloride 96.5 L Carbon Dioxide BUN 73 H Creatinine 3.9 H D Glucose POC Glucose 114 H Calcium 10.3 H Phosphorus 6.30 H Magnesium 2.70 H ALT Alkaline Phosphatase 185 H Total Creatine Kinase CK-MB (CK-2) Rel Index Troponin T Albumin 2.6 L LDL Cholesterol Direct PTH Intact Salicylates Acetaminophen Crossmatch 03/31/19 03/31/19 03/31/19 05:45 10:26 10:26 WBC RBC 3.01 L Hgb 8.2 L Hct 26.4 L MCH 27 L MCHC 31 L RDW 20.3 H Lymph % (Auto) 13.3 L [place] % (Auto) Eos % (Auto) 7.2 H Lymph # 1.1 L [place] # Eos # 0.6 H Seg Neutrophils % 72.1 H Seg Neuts % (Manual) Lymphocytes % (Manual) Eosinophils % (Manual) Seg Neutrophils # Lymphocytes # (Manual) Eosinophils # (Manual) PT INR D-Dimer POC ABG pH POC ABG pCO2 POC ABG pO2 ABG pO2 ABG HCO3 ABG Base Excess ABG Hemoglobin Oxyhemoglobin Sodium Potassium Chloride 96.9 L Carbon Dioxide 33 H BUN 37 H Creatinine 2.4 H Glucose POC Glucose 108 H Calcium 10.3 H Phosphorus Magnesium ALT Alkaline Phosphatase Total Creatine Kinase CK-MB (CK-2) Rel Index Troponin T Albumin LDL Cholesterol Direct PTH Intact Salicylates Acetaminophen Crossmatch 03/31/19 04/01/19 04/01/19 12:38 05:48 12:06 WBC RBC Hgb Hct MCH MCHC RDW Lymph % (Auto) [place] % (Auto) Eos % (Auto) Lymph # [place] # Eos # Seg Neutrophils % Seg Neuts % (Manual) Lymphocytes % (Manual) Eosinophils % (Manual) Seg Neutrophils # Lymphocytes # (Manual) Eosinophils # (Manual) PT INR D-Dimer POC ABG pH POC ABG pCO2 POC ABG pO2 ABG pO2 ABG HCO3 ABG Base Excess ABG Hemoglobin Oxyhemoglobin Sodium Potassium Chloride Carbon Dioxide BUN Creatinine Glucose POC Glucose 108 H 114 H 111 H Calcium Phosphorus Magnesium ALT Alkaline Phosphatase Total Creatine Kinase CK-MB (CK-2) Rel Index Troponin T Albumin LDL Cholesterol Direct PTH Intact Salicylates Acetaminophen Crossmatch 04/01/19 04/02/19 04/04/19 18:24 00:36 23:55 WBC RBC Hgb Hct MCH MCHC RDW Lymph % (Auto) [place] % (Auto) Eos % (Auto) Lymph # [place] # Eos # Seg Neutrophils % Seg Neuts % (Manual) Lymphocytes % (Manual) Eosinophils % (Manual) Seg Neutrophils # Lymphocytes # (Manual) Eosinophils # (Manual) PT INR D-Dimer POC ABG pH POC ABG pCO2 POC ABG pO2 ABG pO2 ABG HCO3 ABG Base Excess ABG Hemoglobin Oxyhemoglobin Sodium Potassium Chloride Carbon Dioxide BUN Creatinine Glucose POC Glucose 113 H 117 H 109 H Calcium Phosphorus Magnesium ALT Alkaline Phosphatase Total Creatine Kinase CK-MB (CK-2) Rel Index Troponin T Albumin LDL Cholesterol Direct PTH Intact Salicylates Acetaminophen Crossmatch 04/06/19 04/06/19 04/06/19 00:11 06:02 23:30 WBC RBC Hgb Hct MCH MCHC RDW Lymph % (Auto) [place] % (Auto) Eos % (Auto) Lymph # [place] # Eos # Seg Neutrophils % Seg Neuts % (Manual) Lymphocytes % (Manual) Eosinophils % (Manual) Seg Neutrophils # Lymphocytes # (Manual) Eosinophils # (Manual) PT INR D-Dimer POC ABG pH POC ABG pCO2 POC ABG pO2 ABG pO2 ABG HCO3 ABG Base Excess ABG Hemoglobin Oxyhemoglobin Sodium Potassium Chloride Carbon Dioxide BUN Creatinine Glucose POC Glucose 116 H 112 H 112 H Calcium Phosphorus Magnesium ALT Alkaline Phosphatase Total Creatine Kinase CK-MB (CK-2) Rel Index Troponin T Albumin LDL Cholesterol Direct PTH Intact Salicylates Acetaminophen Crossmatch 04/08/19 04/08/19 04/08/19 02:23 06:19 13:01 WBC RBC Hgb Hct MCH MCHC RDW Lymph % (Auto) [place] % (Auto) Eos % (Auto) Lymph # [place] # Eos # Seg Neutrophils % Seg Neuts % (Manual) Lymphocytes % (Manual) Eosinophils % (Manual) Seg Neutrophils # Lymphocytes # (Manual) Eosinophils # (Manual) PT INR D-Dimer POC ABG pH POC ABG pCO2 POC ABG pO2 ABG pO2 ABG HCO3 ABG Base Excess ABG Hemoglobin Oxyhemoglobin Sodium Potassium Chloride Carbon Dioxide BUN Creatinine Glucose POC Glucose 144 H 126 H 118 H Calcium Phosphorus Magnesium ALT Alkaline Phosphatase Total Creatine Kinase CK-MB (CK-2) Rel Index Troponin T Albumin LDL Cholesterol Direct PTH Intact Salicylates Acetaminophen Crossmatch 04/08/19 04/09/19 04/10/19 23:28 05:52 06:34 WBC RBC Hgb Hct MCH MCHC RDW Lymph % (Auto) [place] % (Auto) Eos % (Auto) Lymph # [place] # Eos # Seg Neutrophils % Seg Neuts % (Manual) Lymphocytes % (Manual) Eosinophils % (Manual) Seg Neutrophils # Lymphocytes # (Manual) Eosinophils # (Manual) PT INR D-Dimer POC ABG pH POC ABG pCO2 POC ABG pO2 ABG pO2 ABG HCO3 ABG Base Excess ABG Hemoglobin Oxyhemoglobin Sodium Potassium Chloride Carbon Dioxide BUN Creatinine Glucose POC Glucose 119 H 116 H 114 H Calcium Phosphorus Magnesium ALT Alkaline Phosphatase Total Creatine Kinase CK-MB (CK-2) Rel Index Troponin T Albumin LDL Cholesterol Direct PTH Intact Salicylates Acetaminophen Crossmatch 04/10/19 04/10/19 04/11/19 12:34 18:59 00:36 WBC RBC Hgb Hct MCH MCHC RDW Lymph % (Auto) [place] % (Auto) Eos % (Auto) Lymph # [place] # Eos # Seg Neutrophils % Seg Neuts % (Manual) Lymphocytes % (Manual) Eosinophils % (Manual) Seg Neutrophils # Lymphocytes # (Manual) Eosinophils # (Manual) PT INR D-Dimer POC ABG pH POC ABG pCO2 POC ABG pO2 ABG pO2 ABG HCO3 ABG Base Excess ABG Hemoglobin Oxyhemoglobin Sodium Potassium Chloride Carbon Dioxide BUN Creatinine Glucose POC Glucose 112 H 109 H 124 H Calcium Phosphorus Magnesium ALT Alkaline Phosphatase Total Creatine Kinase CK-MB (CK-2) Rel Index Troponin T Albumin LDL Cholesterol Direct PTH Intact Salicylates Acetaminophen Crossmatch 04/11/19 08:01 WBC RBC Hgb Hct MCH MCHC RDW Lymph % (Auto) [place] % (Auto) Eos % (Auto) Lymph # [place] # Eos # Seg Neutrophils % Seg Neuts % (Manual) Lymphocytes % (Manual) Eosinophils % (Manual) Seg Neutrophils # Lymphocytes # (Manual) Eosinophils # (Manual) PT INR D-Dimer POC ABG pH POC ABG pCO2 POC ABG pO2 ABG pO2 ABG HCO3 ABG Base Excess ABG Hemoglobin Oxyhemoglobin Sodium Potassium Chloride Carbon Dioxide BUN Creatinine Glucose POC Glucose 118 H Calcium Phosphorus Magnesium ALT Alkaline Phosphatase Total Creatine Kinase CK-MB (CK-2) Rel Index Troponin T Albumin LDL Cholesterol Direct PTH Intact Salicylates Acetaminophen Crossmatch
--- NOTE | 2019-04-11 09:39 | Progress Note ---
Assessment and Plan Assessment: * End stage renal disease (outpatient TTS schedule) * Acute hypoxic respiratory failure s/p trach * KEON pneumonia --Sputum cx: MDR Acinetobacter * Cardiomyopathy - EF 35-40% * Atrial fibrillation * History of CVA * Anemia secondary to ESRD * Secondary hyperparathyroidism Plan * Continue HD MWF via [facility] AVG * UF as tolerated * Nutrition per primary team * Dose medications for renal function * Epogen 20k TIW Subjective Date of service: 04/11/19 Principal diagnosis: Respiratory failure, acute on chronic systolic HF, ESRD Interval history: No acute events overnight Objective - Vital Signs Vital signs: Vital Signs - 12hr 04/11/19 04/11/19 04/11/19 00:27 02:04 05:21 Temperature 97.8 F 97.2 F L Pulse Rate 80 79 Pulse Rate [ Anterior Bilateral Throughout] Pulse Rate [ From Monitor] Respiratory 22 22 Rate Respiratory Rate [Anterior Bilateral Throughout] Blood Pressure 113/59 104/61 O2 Sat by Pulse 100 100 Oximetry O2 Sat by Pulse 100 Oximetry [ Assessment] 04/11/19 04/11/19 04/11/19 07:34 07:47 07:48 Temperature 99.1 F Pulse Rate 82 Pulse Rate [ 86 Anterior Bilateral Throughout] Pulse Rate [ From Monitor] Respiratory 18 Rate Respiratory 20 Rate [Anterior Bilateral Throughout] Blood Pressure 130/62 O2 Sat by Pulse 100 100 Oximetry O2 Sat by Pulse Oximetry [ Assessment] 04/11/19 04/11/19 07:49 08:53 Temperature Pulse Rate Pulse Rate [ Anterior Bilateral Throughout] Pulse Rate [ 73 From Monitor] Respiratory 24 Rate Respiratory Rate [Anterior Bilateral Throughout] Blood Pressure O2 Sat by Pulse 96 Oximetry O2 Sat by Pulse 100 Oximetry [ Assessment] - General Appearance General appearance: chronically ill EENT: ATNC Neck: other (trach) Respiratory: Present: Decreased Breath Sounds Cardiology: regular, S1S2 Gastrointestinal: other (PEG, ostomy) Musculoskeletal: other (no edema) Psychiatric: cooperative - Lab 03/31/19 10:26 03/31/19 10:26 Most recent lab results ABG pH 7.424 pH Units (7.350-7.450) 03/19/19 04:23 ABG pCO2 48.0 mm Hg 03/19/19 04:23 ABG pO2 78.3 mm Hg (80.0-90.0) L 03/19/19 04:23 ABG HCO3 30.7 mmol/L (20.0-26.0) H 03/19/19 04:23 ABG O2 Saturation 97.0 % (95.0-99.0) 03/19/19 04:23 Calcium 10.3 mg/dL (8.4-10.2) H 03/31/19 10:26 Phosphorus 4.30 mg/dL (2.5-4.5) D 03/31/19 10:26 Magnesium 2.70 mg/dL (1.7-2.3) H 03/30/19 10:13 Medications & Allergies - Medications Allergies/Adverse Reactions: Allergies haloperidol [From Haldol] Adverse Reaction (Verified 03/13/18 12:10) Unknown haloperidol lactate [From Haldol] Adverse Reaction (Verified 03/13/18 12:10) Unknown Home Medications: Home Medications Medication Instructions Recorded Confirmed Last Taken Type risperiDONE [RisperDAL] 1 mg PO QAM 03/13/18 02/21/19 Unknown History Sertraline [Zoloft] 100 mg PO QDAY 08/26/18 02/21/19 Unknown History Polyethylene Glycol 3350 [Miralax 17 gm PO QDAY #30 packet 11/05/18 02/21/19 Unknown Rx 3350] Aspirin EC [Halfprin EC] 81 mg PO DAILY #30 11/19/18 02/21/19 Unknown Rx Docusate Sodium [Colace CAP] 100 mg PO BID #60 11/19/18 02/21/19 Unknown Rx Folic Acid [Folvite] 1 mg PO DAILY #30 tab 11/19/18 02/21/19 Unknown Rx Famotidine [Pepcid] 20 mg PO DAILY tablet 12/08/18 02/21/19 Unknown Rx Gabapentin [Neurontin] 100 mg PO QHS capsule 12/08/18 02/21/19 Unknown Rx Metoprolol [Lopressor TAB] 50 mg PO BID 30 Days tablet 12/08/18 02/21/19 Unknown Rx Sevelamer Carbonate [Renvela] 800 mg PO TIDWM tablet 12/08/18 02/21/19 Unknown Rx hydrALAZINE [Apresoline TAB] 100 mg PO Q8HR #120 tablet 12/08/18 02/21/19 Unknown Rx Acetaminophen [Acetaminophen TAB] 650 mg PO Q12H PRN 12/15/18 02/21/19 Unknown History Glucagon,Human Recombinant 1 mg IJ Q15MIN PRN 12/15/18 02/21/19 Unknown History [Glucagon Emergency Kit] Insulin Aspart [NovoLOG 100 See Protocol SQ QWEEK 12/15/18 02/21/19 Unknown History UNITS/ML VIAL] Active Medications: Generic Name Dose Route Start Last Admin Trade Name Freq PRN Reason Stop Dose Admin Albuterol/Ipratropium 1 ampul 02/24/19 20:00 04/11/19 07:46 Duoneb *Not For Prn Use* IH 1 ampul TIDRT SANCHEZ Administration Lipase/Protease/Amylase 1 each 04/10/19 15:[address] 10,500 Unit FEEDTUBE PRN PRN For Clogged Feeding Tube Epoetin Solitario 20,000 unit 03/24/19 11:17 04/08/19 10:56 Procrit IV 20,000 unit UMA PRN Administration hemodialysis Famotidine 20 mg 02/23/19 10:00 04/10/19 14:38 Pepcid PO 20 mg DAILY SANCHEZ Administration Hydrophilic Ointment 1 applic 02/21/19 18:24 03/05/19 08:16 Vaseline Lip Therapy TP 1 applic Q2HR PRN Administration Dry Lips Sodium Chloride 100 mls @ 999 mls/hr 02/26/19 09:00 Nacl 0.9% IV UMA PRN Hypotension Insulin Human Regular 0 units 02/26/19 12:00 04/11/19 07:55 Humulin R SUB-Q Not Given Q6HR [facility] Protocol Metoprolol Tartrate 2.5 mg 02/28/19 12:06 03/15/19 05:15 Lopressor IV 2.5 mg Q4HR PRN Administration Tachycardia Multi-Ingred Cream/Lotion/Oil/Oint 1 applic 02/21/19 18:24 03/29/19 21:40 Artificial Tears Ophth Oint OU 1 applic Q4HR PRN Administration Dry Eye(s) Risperidone 1 mg 02/25/19 13:00 04/10/19 14:38 Risperdal PO 1 mg DAILY SANCHEZ Administration Scopolamine 1 each 03/13/19 04:00 04/09/19 04:20 Transderm-Scop TD 1 each Q3D SANCHEZ Administration Sertraline HCl 100 mg 02/25/19 13:00 04/10/19 14:38 Zoloft PO 100 mg DAILY SANCHEZ Administration Simple Syrup 15 ml 04/10/19 15:16 Simple Syrup FEEDTUBE PRN PRN Hypoglycemia Simple Syrup 30 ml 04/10/19 15:16 Simple Syrup FEEDTUBE PRN PRN Hypoglycemia Sodium Bicarbonate 325 mg 04/10/19 15:16 Sodium Bicarbonate FEEDTUBE PRN PRN For Clogged Feeding Tube Sodium Hypochlorite 1 applic 04/01/19 13:00 04/11/19 04:32 Dakin's Half Strength TP 0.25 applicatio BID SANCHEZ Administration
[2019-04-11] MEDS: FAMOTIDINE 20 MG TAB PO SCH (11:33)
[2019-04-11] MEDS: risperiDONE 1 MG TAB PO SCH (11:34)
[2019-04-11] MEDS: SERTRALINE 100 MG TAB PO SCH (11:34)
--- NOTE | 2019-04-11 11:44 | Progress Note ---
Assessment and Plan S/p Trach and Peg placement Acute respiratory failure on - Currently on trach placed on 03/03 Pulm consult appreciated Cont Neb treatments Acute pulmonary edema, fluid overload on CXR repeat xray intermittently Dialysis Dilated CMP Continue diuresis Acute encephalopathy, probably metabolic or toxic Near baseline ESRD on hemodialysis nephrology following Vascular eval. done re: LUE AV graft, see note Bilateral pleural effusions Permanent atrial fibrillation and flutter Not on anticoagulation because of anemia thrombocytopenia Change noted to BB agent to IV. Diabetes mellitus type 2 Fingerstick Q4h NSTEMI type 2 Cardiology following Schizophrenia Legally blind supportive care hypertension Monitor BP Hypokalemia repeat in am Cardiomyiopathy EF 35-40% Pulmonary hypertension Dysphagia s/p PEG tube Sacral decub ulcer Wound care Severe malnutrition /hypoalbuminemia with FTT: 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, circle edger following PEG placed on 01/02/19 decubitus ulcer at his post colostomy wound care consult History of sacral osteomyelitis and LE ulcers Completed Antibiotics Place on contact isolation for ESBL Klebsiella pneumonia on wound culture 01/02/19 Schizophrenia h/o Peripheral neuropathy: Continue gabapentin Pulm HTN Anemia of chronic disease -s/p total of 8 units PRBC, follow cbc- no occult GI bleed noted. -Pt is s/p x1 DDVAP RUL atelectasis, probably mucous plugging DVT prophylaxis Lovenox Full code status poor prognosis Awaiting LTAC placement/SNF placement Off vent can go to SNF Case management on board Subjective Date of service: 04/11/19 Principal diagnosis: Respiratory failure, acute on chronic systolic HF, ESRD Interval history: 63-year-old -[place] man from [facility] with a plethora of co- morbidities including blindness, CVA, CHF, PPM/ICD, loop recorder since 2012 that is MRI compatible, IDDM type 2, sepsis left foot ulcer, afib, ESRD with complications on HD TTS, hypertension, AOCD and GERD who presented to the ED with hypotensive after intubation in the emergency room. Still intubated, diagnosed with fluid overload, pleural effusion. Patient has had recurrent admission in the hospital for similar reason and was recently discharged from the hospital following treatment of Severe Sepsis due to Necrotizing Unstagable sacral decubitus ulcer with ostemomylitis. Now stable and alert but not oriented Near his baseline Objective - Exam Narrative Exam: Patient with Trach status - Constitutional Vitals: Vital Signs - 12hr 04/11/19 04/11/19 04/11/19 00:27 02:04 05:21 Temperature 97.8 F 97.2 F L Pulse Rate 80 79 Pulse Rate [ Anterior Bilateral Throughout] Pulse Rate [ From Monitor] Respiratory 22 22 Rate Respiratory Rate [Anterior Bilateral Throughout] Blood Pressure 113/59 104/61 O2 Sat by Pulse 100 100 Oximetry O2 Sat by Pulse 100 Oximetry [ Assessment] 04/11/19 04/11/19 04/11/19 07:34 07:47 07:48 Temperature 99.1 F Pulse Rate 82 Pulse Rate [ 86 Anterior Bilateral Throughout] Pulse Rate [ From Monitor] Respiratory 18 Rate Respiratory 20 Rate [Anterior Bilateral Throughout] Blood Pressure 130/62 O2 Sat by Pulse 100 100 Oximetry O2 Sat by Pulse Oximetry [ Assessment] 04/11/19 04/11/19 07:49 08:53 Temperature Pulse Rate Pulse Rate [ Anterior Bilateral Throughout] Pulse Rate [ 73 From Monitor] Respiratory 24 Rate Respiratory Rate [Anterior Bilateral Throughout] Blood Pressure O2 Sat by Pulse 96 Oximetry O2 Sat by Pulse 100 Oximetry [ Assessment] General appearance: Present: no acute distress, well-nourished - EENT Eyes: PERRL, EOM intact ENT: hearing intact, clear oral mucosa Ears: bilateral: normal - Neck Neck: supple, normal ROM, other (Trach in place) - Respiratory Respiratory effort: normal Respiratory: bilateral: CTA - Breasts Breasts: normal - Cardiovascular Heart rate: 78 Rhythm: regular Heart Sounds: Present: S1 & S2. Absent: gallop, rub Extremities: pulses intact, No edema, normal color, Full ROM Extremity abnormal: other (Large sacral decubitus ulcer) - Gastrointestinal General gastrointestinal: Present: soft, non-tender, non-distended, normal bowel sounds - Genitourinary Male genitourinary: normal - Integumentary Integumentary: clear, warm, dry - Musculoskeletal Musculoskeletal: 1, strength equal bilaterally - Neurologic Neurologic: moves all extremities - Psychiatric Psychiatric: memory intact, appropriate mood/affect, intact judgment & insight - Labs CBC & Chem 7: 03/31/19 10:26 03/31/19 10:26 Labs: Abnormal lab results 04/10/19 04/10/19 04/11/19 Range/Units 12:34 18:59 00:36 POC Glucose 112 H 109 H 124 H (70-105) 04/11/19 Range/Units 08:01 POC Glucose 118 H (70-105)
[2019-04-12] MEDS: INSULIN REGULAR, HUMAN 100 UNITS/1 ML SUB-Q SCH ×3 (01:25→13:14)
[2019-04-12] MEDS: SCOPOLAMINE TRANSDERMAL PATCH 72 HR TD SCH (04:13)
[2019-04-12] MEDS: IPRATROPIUM/ALBUTEROL SULFATE 3 ML AMPUL.NEB IH SCH ×3 (08:10→19:24)
[2019-04-12] MEDS: SERTRALINE 100 MG TAB PO SCH (09:47)
[2019-04-12] MEDS: FAMOTIDINE 20 MG TAB PO SCH (09:48)
[2019-04-12] MEDS: SODIUM HYPOCHLORITE, DAKIN'S 1/2 STRENGTH (0.25%) 473 ML TOPICAL SOLN TP SCH ×2 (09:48→23:00)
[2019-04-12] MEDS: risperiDONE 1 MG TAB PO SCH (09:48)
--- NOTE | 2019-04-12 16:31 | Progress Note ---
Assessment and Plan Assessment: * End stage renal disease (outpatient TTS schedule) * Acute hypoxic respiratory failure s/p trach * KEON pneumonia --Sputum cx: MDR Acinetobacter * Cardiomyopathy - EF 35-40% * Atrial fibrillation * History of CVA * Anemia secondary to ESRD * Secondary hyperparathyroidism Plan * Continue HD MWF via WILFRED AVG * UF as tolerated * Nutrition per primary team * Dose medications for renal function * Epogen 20k TIW * AM labs ordered Subjective Date of service: 04/12/19 Principal diagnosis: Respiratory failure, acute on chronic systolic HF, ESRD Interval history: No acute events overnight Objective - Vital Signs Vital signs: Vital Signs - 12hr 04/12/19 04/12/19 04/12/19 04:46 07:39 08:24 Temperature 98.0 F 98.1 F Pulse Rate Pulse Rate [ 73 Anterior Bilateral Throughout] Pulse Rate [ Apical] Pulse Rate [ Left Dorsalis Pedis] Pulse Rate [ Left Radial] Pulse Rate [ Posterior Bilateral Throughout] Pulse Rate [ Right Dorsalis Pedis] Pulse Rate [ Right Radial] Respiratory 18 18 Rate Respiratory 20 Rate [Anterior Bilateral Throughout] Respiratory Rate [Posterior Bilateral Throughout] Blood Pressure 129/59 112/90 O2 Sat by Pulse 99 Oximetry O2 Sat by Pulse Oximetry [ Assessment] 04/12/19 04/12/19 04/12/19 10:00 14:16 14:21 Temperature Pulse Rate 75 Pulse Rate [ 75 Anterior Bilateral Throughout] Pulse Rate [ 77 Apical] Pulse Rate [ 77 Left Dorsalis Pedis] Pulse Rate [ 77 Left Radial] Pulse Rate [ 72 Posterior Bilateral Throughout] Pulse Rate [ 77 Right Dorsalis Pedis] Pulse Rate [ 77 Right Radial] Respiratory 23 Rate Respiratory 20 Rate [Anterior Bilateral Throughout] Respiratory 18 Rate [Posterior Bilateral Throughout] Blood Pressure O2 Sat by Pulse 98 Oximetry O2 Sat by Pulse 99 Oximetry [ Assessment] - General Appearance General appearance: chronically ill EENT: ATNC Neck: other (trach collar in place) Respiratory: Present: Decreased Breath Sounds Cardiology: regular, S1S2 Gastrointestinal: normal, other (PEG, ostomy) Neurologic: other (nods head to questions) Musculoskeletal: other (no edema) - Lab 03/31/19 10:26 03/31/19 10:26 Most recent lab results ABG pH 7.424 pH Units (7.350-7.450) 03/19/19 04:23 ABG pCO2 48.0 mm Hg 03/19/19 04:23 ABG pO2 78.3 mm Hg (80.0-90.0) L 03/19/19 04:23 ABG HCO3 30.7 mmol/L (20.0-26.0) H 03/19/19 04:23 ABG O2 Saturation 97.0 % (95.0-99.0) 03/19/19 04:23 Calcium 10.3 mg/dL (8.4-10.2) H 03/31/19 10:26 Phosphorus 4.30 mg/dL (2.5-4.5) D 03/31/19 10:26 Magnesium 2.70 mg/dL (1.7-2.3) H 03/30/19 10:13 Medications & Allergies - Medications Allergies/Adverse Reactions: Allergies haloperidol [From Haldol] Adverse Reaction (Verified 03/13/18 12:10) Unknown haloperidol lactate [From Haldol] Adverse Reaction (Verified 03/13/18 12:10) Unknown Home Medications: Home Medications Medication Instructions Recorded Confirmed Last Taken Type risperiDONE [RisperDAL] 1 mg PO QAM 03/13/18 02/21/19 Unknown History Sertraline [Zoloft] 100 mg PO QDAY 08/26/18 02/21/19 Unknown History Polyethylene Glycol 3350 [Miralax 17 gm PO QDAY #30 packet 11/05/18 02/21/19 Unknown Rx 3350] Aspirin EC [Halfprin EC] 81 mg PO DAILY #30 11/19/18 02/21/19 Unknown Rx Docusate Sodium [Colace CAP] 100 mg PO BID #60 11/19/18 02/21/19 Unknown Rx Folic Acid [Folvite] 1 mg PO DAILY #30 tab 11/19/18 02/21/19 Unknown Rx Famotidine [Pepcid] 20 mg PO DAILY tablet 12/08/18 02/21/19 Unknown Rx Gabapentin [Neurontin] 100 mg PO QHS capsule 12/08/18 02/21/19 Unknown Rx Metoprolol [Lopressor TAB] 50 mg PO BID 30 Days tablet 12/08/18 02/21/19 Unknown Rx Sevelamer Carbonate [Renvela] 800 mg PO TIDWM tablet 12/08/18 02/21/19 Unknown Rx hydrALAZINE [Apresoline TAB] 100 mg PO Q8HR #120 tablet 12/08/18 02/21/19 Unknown Rx Acetaminophen [Acetaminophen TAB] 650 mg PO Q12H PRN 12/15/18 02/21/19 Unknown History Glucagon,Human Recombinant 1 mg IJ Q15MIN PRN 12/15/18 02/21/19 Unknown History [Glucagon Emergency Kit] Insulin Aspart [NovoLOG 100 See Protocol SQ QWEEK 12/15/18 02/21/19 Unknown History UNITS/ML VIAL] Active Medications: Generic Name Dose Route Start Last Admin Trade Name Freq PRN Reason Stop Dose Admin Albuterol/Ipratropium 1 ampul 02/24/19 20:00 04/12/19 13:50 Duoneb *Not For Prn Use* IH 1 ampul TIDRT SANCHEZ Administration Lipase/Protease/Amylase 1 each 04/10/19 15:16 Pancreaze 10,500 Unit FEEDTUBE PRN PRN For Clogged Feeding Tube Epoetin Solitario 20,000 unit 03/24/19 11:17 04/08/19 10:56 Procrit IV 20,000 unit UMA PRN Administration hemodialysis Famotidine 20 mg 02/23/19 10:00 04/12/19 09:48 Pepcid PO 20 mg DAILY SANCHEZ Administration Hydrophilic Ointment 1 applic 02/21/19 18:24 03/05/19 08:16 Vaseline Lip Therapy TP 1 applic Q2HR PRN Administration Dry Lips Sodium Chloride 100 mls @ 999 mls/hr 02/26/19 09:00 Nacl 0.9% IV UMA PRN Hypotension Insulin Human Regular 0 units 02/26/19 12:00 04/12/19 13:14 Humulin R SUB-Q Not Given Q6HR [facility] Protocol Metoprolol Tartrate 2.5 mg 02/28/19 12:06 03/15/19 05:15 Lopressor IV 2.5 mg Q4HR PRN Administration Tachycardia Multi-Ingred Cream/Lotion/Oil/Oint 1 applic 02/21/19 18:24 03/29/19 21:40 Artificial Tears Ophth Oint OU 1 applic Q4HR PRN Administration Dry Eye(s) Risperidone 1 mg 02/25/19 13:00 04/12/19 09:48 Risperdal PO 1 mg DAILY SANCHEZ Administration Scopolamine 1 each 03/13/19 04:00 04/12/19 04:13 Transderm-Scop TD 1 each Q3D SANCHEZ Administration Sertraline HCl 100 mg 02/25/19 13:00 04/12/19 09:47 Zoloft PO 100 mg DAILY SANCHEZ Administration Simple Syrup 15 ml 04/10/19 15:16 Simple Syrup FEEDTUBE PRN PRN Hypoglycemia Simple Syrup 30 ml 04/10/19 15:16 Simple Syrup FEEDTUBE PRN PRN Hypoglycemia Sodium Bicarbonate 325 mg 04/10/19 15:16 Sodium Bicarbonate FEEDTUBE PRN PRN For Clogged Feeding Tube Sodium Hypochlorite 1 applic 04/01/19 13:00 04/12/19 09:48 Dakin's Half Strength TP 1 applicatio BID SANCHEZ Administration
[2019-04-13] MEDS: INSULIN REGULAR, HUMAN 100 UNITS/1 ML SUB-Q SCH ×4 (07:00→23:54)
[2019-04-13] MEDS: IPRATROPIUM/ALBUTEROL SULFATE 3 ML AMPUL.NEB IH SCH ×3 (08:01→20:30)
[2019-04-13 08:02] LABS: Hematocrit 28.6 % (35.5-45.6); Hemoglobin 8.9 gm/dl (11.8-15.2); Mean Corpuscular HGB Conc 31 % (32-34); Mean Corpuscular Volume 86 fl (84-94); Platelet Count 319 K/mm3 (140-440); Red Blood Count 3.34 M/mm3 (3.65-5.03); Red Cell Distribution Width 19.6 % (13.2-15.2)
[2019-04-13 08:08] LABS: Calcium 9.8 mg/dL (8.4-10.2)
--- NOTE | 2019-04-13 09:29 | Progress Note ---
Assessment and Plan Assessment: * End stage renal disease (outpatient TTS schedule) * Acute hypoxic respiratory failure s/p trach * KEON pneumonia --Sputum cx: MDR Acinetobacter * Cardiomyopathy - EF 35-40% * Atrial fibrillation * History of CVA * Anemia secondary to ESRD * Secondary hyperparathyroidism Plan * Continue HD MWF via [facility] * UF as tolerated * Nutrition per primary team * Dose medications for renal function * Epogen 20k TIW * AM labs ordered Subjective Date of service: 04/13/19 Principal diagnosis: Respiratory failure, acute on chronic systolic HF, ESRD Interval history: no acute issues noted overnight. tolerating HD sessions per HD nurses Objective - Exam Narrative Exam: General appearance: chronically ill, intubated, frail EENT: normocephalic Neck: trach collar in place Respiratory: coarse mechanical breath sounds bilaterally Cardiology: regular, S1S2, no edema Gastrointestinal: PEG and colostomy noted Integumentary: warm and dry Psychiatric: unable to assess - Vital Signs Vital signs: Vital Signs - 12hr 04/12/19 04/12/19 04/12/19 22:00 23:10 23:36 Temperature 98.0 F Pulse Rate 76 Pulse Rate [ 77 Apical] Respiratory 20 20 Rate Blood Pressure 137/53 O2 Sat by Pulse 98 98 Oximetry 04/13/19 04/13/19 03:49 09:00 Temperature 98.6 F 98.2 F Pulse Rate 95 H 82 Pulse Rate [ Apical] Respiratory 22 18 Rate Blood Pressure 142/62 136/57 O2 Sat by Pulse 98 99 Oximetry - Lab 04/13/19 07:31 04/13/19 07:31 Most recent lab results ABG pH 7.424 pH Units (7.350-7.450) 03/19/19 04:23 ABG pCO2 48.0 mm Hg 03/19/19 04:23 ABG pO2 78.3 mm Hg (80.0-90.0) L 03/19/19 04:23 ABG HCO3 30.7 mmol/L (20.0-26.0) H 03/19/19 04:23 ABG O2 Saturation 97.0 % (95.0-99.0) 03/19/19 04:23 Calcium 9.8 mg/dL (8.4-10.2) 04/13/19 07:31 Phosphorus 4.30 mg/dL (2.5-4.5) D 03/31/19 10:26 Magnesium 2.70 mg/dL (1.7-2.3) H 03/30/19 10:13 Medications & Allergies - Medications Allergies/Adverse Reactions: Allergies haloperidol [From Haldol] Adverse Reaction (Verified 03/13/18 12:10) Unknown haloperidol lactate [From Haldol] Adverse Reaction (Verified 03/13/18 12:10) Unknown Home Medications: Home Medications Medication Instructions Recorded Confirmed Last Taken Type risperiDONE [RisperDAL] 1 mg PO QAM 03/13/18 02/21/19 Unknown History Sertraline [Zoloft] 100 mg PO QDAY 08/26/18 02/21/19 Unknown History Polyethylene Glycol 3350 [Miralax 17 gm PO QDAY #30 packet 11/05/18 02/21/19 Unknown Rx 3350] Aspirin EC [Halfprin EC] 81 mg PO DAILY #30 11/19/18 02/21/19 Unknown Rx Docusate Sodium [Colace CAP] 100 mg PO BID #60 11/19/18 02/21/19 Unknown Rx Folic Acid [Folvite] 1 mg PO DAILY #30 tab 11/19/18 02/21/19 Unknown Rx Famotidine [Pepcid] 20 mg PO DAILY tablet 12/08/18 02/21/19 Unknown Rx Gabapentin [Neurontin] 100 mg PO QHS capsule 12/08/18 02/21/19 Unknown Rx Metoprolol [Lopressor TAB] 50 mg PO BID 30 Days tablet 12/08/18 02/21/19 Unknow n Rx Sevelamer Carbonate [Renvela] 800 mg PO TIDWM tablet 12/08/18 02/21/19 Unknown Rx hydrALAZINE [Apresoline TAB] 100 mg PO Q8HR #120 tablet 12/08/18 02/21/19 Unknown Rx Acetaminophen [Acetaminophen TAB] 650 mg PO Q12H PRN 12/15/18 02/21/19 Unknown History Glucagon,Human Recombinant 1 mg IJ Q15MIN PRN 12/15/18 02/21/19 Unknown History [Glucagon Emergency Kit] Insulin Aspart [NovoLOG 100 See Protocol SQ QWEEK 12/15/18 02/21/19 Unknown History UNITS/ML VIAL] Active Medications: Generic Name Dose Route Start Last Admin Trade Name Freq PRN Reason Stop Dose Admin Albuterol/Ipratropium 1 ampul 02/24/19 20:00 04/13/19 08:01 Duoneb *Not For Prn Use* IH 1 ampul TIDRT SANCHEZ Administration Lipase/Protease/Amylase 1 each 04/10/19 15:16 Pancrejewel Barrientos 10,500 Unit FEEDTUBE PRN PRN For Clogged Feeding Tube Epoetin Solitario 20,000 unit 03/24/19 11:17 04/08/19 10:56 Procrit IV 20,000 unit UMA PRN Administration hemodialysis Famotidine 20 mg 02/23/19 10:00 04/12/19 09:48 Pepcid PO 20 mg DAILY SANCHEZ Administration Hydrophilic Ointment 1 applic 02/21/19 18:24 03/05/19 08:16 Vaseline Lip Therapy TP 1 applic Q2HR PRN Administration Dry Lips Sodium Chloride 100 mls @ 999 mls/hr 02/26/19 09:00 Nacl 0.9% IV UMA PRN Hypotension Insulin Human Regular 0 units 02/26/19 12:00 04/13/19 07:00 Humulin R SUB-Q Not Given Q6HR [facility] Protocol Metoprolol Tartrate 2.5 mg 02/28/19 12:06 03/15/19 05:15 Lopressor IV 2.5 mg Q4HR PRN Administration Tachycardia Multi-Ingred Cream/Lotion/Oil/Oint 1 applic 02/21/19 18:24 03/29/19 21:40 Artificial Tears Ophth Oint OU 1 applic Q4HR PRN Administration Dry Eye(s) Risperidone 1 mg 02/25/19 13:00 04/12/19 09:48 Risperdal PO 1 mg DAILY SANCHEZ Administration Sertraline HCl 100 mg 02/25/19 13:00 04/12/19 09:47 Zoloft PO 100 mg DAILY SANCHEZ Administration Simple Syrup 15 ml 04/10/19 15:16 Simple Syrup FEEDTUBE PRN PRN Hypoglycemia Simple Syrup 30 ml 04/10/19 15:16 Simple Syrup FEEDTUBE PRN PRN Hypoglycemia Sodium Bicarbonate 325 mg 04/10/19 15:16 Sodium Bicarbonate FEEDTUBE PRN PRN For Clogged Feeding Tube Sodium Hypochlorite 1 applic 04/01/19 13:00 04/12/19 23:00 Dakin's Half Strength TP 1 applicatio BID SANCHEZ Administration
[2019-04-13] MEDS: risperiDONE 1 MG TAB PO SCH (10:45)
[2019-04-13] MEDS: SERTRALINE 100 MG TAB PO SCH (10:45)
[2019-04-13] MEDS: FAMOTIDINE 20 MG TAB PO SCH (10:45)
[2019-04-13] MEDS: SODIUM HYPOCHLORITE, DAKIN'S 1/2 STRENGTH (0.25%) 473 ML TOPICAL SOLN TP SCH (10:45)
[2019-04-13] MEDS: EPOETIN ALFA 20,000 UNIT/1 ML INJ IV PRN (17:31)
--- NOTE | 2019-04-13 19:05 | Progress Note ---
Assessment and Plan S/p Trach and Peg placement Acute respiratory failure on - Currently on trach placed on 03/03 Pulm consult appreciated Cont Neb treatments Acute pulmonary edema, fluid overload on CXR repeat xray intermittently Dialysis Dilated CMP Continue diuresis Acute encephalopathy, probably metabolic or toxic Near baseline ESRD on hemodialysis nephrology following Vascular eval. done re: LUE AV graft, see note Bilateral pleural effusions Permanent atrial fibrillation and flutter Not on anticoagulation because of anemia thrombocytopenia Change noted to BB agent to IV. 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 -Pt is s/p x1 DDVAP RUL atelectasis, probably mucous plugging DVT prophylaxis Lovenox Full code status poor prognosis Awaiting LTAC placement/SNF placement Off vent can go to SNF Case management on board Subjective Date of service: 04/12/19 Principal diagnosis: Respiratory failure, acute on chronic systolic HF, ESRD Interval history: 63-year-old -[place] man from [facility] with a plethora of co- morbidities including blindness, CVA, CHF, PPM/ICD, loop recorder since 2012 that is MRI compatible, IDDM type 2, sepsis left foot ulcer, afib, ESRD with complications on HD TTS, hypertension, AOCD and GERD who presented to the ED with hypotensive after intubation in the emergency room. Still intubated, diagnosed with fluid overload, pleural effusion. Patient has had recurrent admission in the hospital for similar reason and was recently discharged from the hospital following treatment of Severe Sepsis due to Necrotizing Unstagable sacral decubitus ulcer with ostemomylitis. Now stable and alert but not oriented Near his baseline Objective - Exam Narrative Exam: Patient with Trach status - Constitutional Vitals: Vital Signs - 12hr 04/13/19 04/13/19 04/13/19 08:01 09:00 10:00 Temperature 98.2 F Pulse Rate 82 Pulse Rate [ 85 Anterior Bilateral Throughout] Pulse Rate [ 77 Apical] Pulse Rate [ 85 Posterior Bilateral Throughout] Respiratory 18 20 Rate Respiratory 20 Rate [Anterior Bilateral Throughout] Respiratory 20 Rate [Posterior Bilateral Throughout] Blood Pressure 136/57 O2 Sat by Pulse 99 99 98 Oximetry O2 Sat by Pulse 99 Oximetry [ Assessment] 04/13/19 04/13/19 04/13/19 13:11 13:55 14:00 Temperature 98.2 F Pulse Rate 82 80 Pulse Rate [ 78 Anterior Bilateral Throughout] Pulse Rate [ Apical] Pulse Rate [ Posterior Bilateral Throughout] Respiratory 20 Rate Respiratory 20 Rate [Anterior Bilateral Throughout] Respiratory Rate [Posterior Bilateral Throughout] Blood Pressure 149/63 151/69 O2 Sat by Pulse Oximetry O2 Sat by Pulse 100 Oximetry [ Assessment] 04/13/19 04/13/19 04/13/19 14:15 14:30 14:45 Temperature Pulse Rate 81 83 85 Pulse Rate [ Anterior Bilateral Throughout] Pulse Rate [ Apical] Pulse Rate [ Posterior Bilateral Throughout] Respiratory Rate Respiratory Rate [Anterior Bilateral Throughout] Respiratory Rate [Posterior Bilateral Throughout] Blood Pressure 144/67 135/67 139/62 O2 Sat by Pulse Oximetry O2 Sat by Pulse Oximetry [ Assessment] 04/13/19 04/13/19 04/13/19 15:00 15:15 15:30 Temperature Pulse Rate 88 86 85 Pulse Rate [ Anterior Bilateral Throughout] Pulse Rate [ Apical] Pulse Rate [ Posterior Bilateral Throughout] Respiratory Rate Respiratory Rate [Anterior Bilateral Throughout] Respiratory Rate [Posterior Bilateral Throughout] Blood Pressure 140/63 134/67 130/69 O2 Sat by Pulse Oximetry O2 Sat by Pulse Oximetry [ Assessment] 04/13/19 04/13/19 04/13/19 15:45 16:00 16:15 Temperature Pulse Rate 86 84 86 Pulse Rate [ Anterior Bilateral Throughout] Pulse Rate [ Apical] Pulse Rate [ Posterior Bilateral Throughout] Respiratory Rate Respiratory Rate [Anterior Bilateral Throughout] Respiratory Rate [Posterior Bilateral Throughout] Blood Pressure 135/64 142/54 135/73 O2 Sat by Pulse Oximetry O2 Sat by Pulse Oximetry [ Assessment] 04/13/19 04/13/19 04/13/19 16:30 16:45 17:00 Temperature Pulse Rate 93 H 86 88 Pulse Rate [ Anterior Bilateral Throughout] Pulse Rate [ Apical] Pulse Rate [ Posterior Bilateral Throughout] Respiratory Rate Respiratory Rate [Anterior Bilateral Throughout] Respiratory Rate [Posterior Bilateral Throughout] Blood Pressure 129/70 122/53 135/68 O2 Sat by Pulse Oximetry O2 Sat by Pulse Oximetry [ Assessment] 04/13/19 04/13/19 04/13/19 17:15 17:30 18:00 Temperature 98.0 F Pulse Rate 82 78 79 Pulse Rate [ Anterior Bilateral Throughout] Pulse Rate [ Apical] Pulse Rate [ Posterior Bilateral Throughout] Respiratory 20 Rate Respiratory Rate [Anterior Bilateral Throughout] Respiratory Rate [Posterior Bilateral Throughout] Blood Pressure 141/63 133/68 133/62 O2 Sat by Pulse Oximetry O2 Sat by Pulse Oximetry [ Assessment] General appearance: Present: no acute distress, well-nourished - EENT Eyes: PERRL, EOM intact ENT: hearing intact, clear oral mucosa Ears: bilateral: normal - Neck Neck: supple, normal ROM - Respiratory Respiratory effort: normal Respiratory: bilateral: CTA - Breasts Breasts: normal - Cardiovascular Rhythm: regular Heart Sounds: Present: S1 & S2. Absent: gallop, rub Extremities: pulses intact, No edema, normal color, Full ROM - Gastrointestinal General gastrointestinal: Present: soft, non-tender, non-distended, normal bowel sounds - Genitourinary Male genitourinary: normal - Integumentary Integumentary: clear, warm, dry - Musculoskeletal Musculoskeletal: 1, strength equal bilaterally - Neurologic Neurologic: moves all extremities - Psychiatric Psychiatric: memory intact, appropriate mood/affect, intact judgment & insight - Labs CBC & Chem 7: 04/13/19 07:31 04/13/19 07:31 Labs: Abnormal lab results 04/13/19 04/13/19 04/13/19 Range/Units 06:59 07:31 07:31 RBC 3.34 L (3.65-5.03) M/mm3 Hgb 8.9 L (11.8-15.2) gm/dl Hct 28.6 L (35.5-45.6) % MCH 27 L (28-32) pg MCHC 31 L (32-34) % RDW 19.6 H (13.2-15.2) % Chloride 96.4 L (98-107) mmol/L Carbon Dioxide 33 H (22-30) mmol/L BUN 66 H (9-20) mg/dL Creatinine 4.5 H (0.8-1.5) mg/dL Glucose 103 H (75-100) mg/dL POC Glucose 107 H (70-105)
--- NOTE | 2019-04-13 19:06 | Progress Note ---
Assessment and Plan S/p Trach and Peg placement Acute respiratory failure on - Currently on trach placed on 03/03 Pulm consult appreciated Cont Neb treatments Acute pulmonary edema, fluid overload on CXR repeat xray intermittently Dialysis Dilated CMP Continue diuresis Acute encephalopathy, probably metabolic or toxic Near baseline ESRD on hemodialysis nephrology following Vascular eval. done re: LUE AV graft, see note Bilateral pleural effusions Permanent atrial fibrillation and flutter Not on anticoagulation because of anemia thrombocytopenia Change noted to BB agent to IV. Diabetes mellitus type 2 Fingerstick Q4h NSTEMI type 2 Cardiology following Schizophrenia Legally blind supportive care hypertension Monitor BP Hypokalemia repeat in am Cardiomyiopathy EF 35-40% Pulmonary hypertension Dysphagia s/p PEG tube Sacral decub ulcer Wound care Severe malnutrition /hypoalbuminemia with FTT: 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, funder following PEG placed on 01/02/19 decubitus ulcer at his post colostomy wound care consult History of sacral osteomyelitis and LE ulcers Completed Antibiotics Schizophrenia h/o Peripheral neuropathy: Continue gabapentin Pulm HTN Anemia of chronic disease -s/p total of 8 units PRBC, follow cbc- no occult GI bleed noted. -Pt is s/p x1 DDVAP RUL atelectasis, probably mucous plugging DVT prophylaxis Lovenox Full code status poor prognosis Awaiting LTAC placement/SNF placement Off vent can go to SNF Case management on board Subjective Date of service: 04/13/19 Principal diagnosis: Respiratory failure, acute on chronic systolic HF, ESRD Interval history: 63-year-old -[place] man from [facility] with a plethora of co- morbidities including blindness, CVA, CHF, PPM/ICD, loop recorder since 2012 that is MRI compatible, IDDM type 2, sepsis left foot ulcer, afib, ESRD with complications on HD TTS, hypertension, AOCD and GERD who presented to the ED with hypotensive after intubation in the emergency room. Still intubated, diagnosed with fluid overload, pleural effusion. Patient has had recurrent admission in the hospital for similar reason and was recently discharged from the hospital following treatment of Severe Sepsis due to Necrotizing Unstagable sacral decubitus ulcer with ostemomylitis. Now stable and alert but not oriented Near his baseline Objective - Exam Narrative Exam: Patient with Trach status - Constitutional Vitals: Vital Signs - 12hr 09/23/19 09/23/19 09/23/19 08:01 09:00 10:00 Temperature 98.2 F Pulse Rate 82 Pulse Rate [ 85 Anterior Bilateral Throughout] Pulse Rate [ 77 Apical] Pulse Rate [ 85 Posterior Bilateral Throughout] Respiratory 18 20 Rate Respiratory 20 Rate [Anterior Bilateral Throughout] Respiratory 20 Rate [Posterior Bilateral Throughout] Blood Pressure 136/57 O2 Sat by Pulse 99 99 98 Oximetry O2 Sat by Pulse 99 Oximetry [ Assessment] 04/13/19 04/13/19 04/13/19 13:11 13:55 14:00 Temperature 98.2 F Pulse Rate 82 80 Pulse Rate [ 78 Anterior Bilateral Throughout] Pulse Rate [ Apical] Pulse Rate [ Posterior Bilateral Throughout] Respiratory 20 Rate Respiratory 20 Rate [Anterior Bilateral Throughout] Respiratory Rate [Posterior Bilateral Throughout] Blood Pressure 149/63 151/69 O2 Sat by Pulse Oximetry O2 Sat by Pulse 100 Oximetry [ Assessment] 04/13/19 04/13/19 04/13/19 14:15 14:30 14:45 Temperature Pulse Rate 81 83 85 Pulse Rate [ Anterior Bilateral Throughout] Pulse Rate [ Apical] Pulse Rate [ Posterior Bilateral Throughout] Respiratory Rate Respiratory Rate [Anterior Bilateral Throughout] Respiratory Rate [Posterior Bilateral Throughout] Blood Pressure 144/67 135/67 139/62 O2 Sat by Pulse Oximetry O2 Sat by Pulse Oximetry [ Assessment] 04/13/19 04/13/19 04/13/19 15:00 15:15 15:30 Temperature Pulse Rate 88 86 85 Pulse Rate [ Anterior Bilateral Throughout] Pulse Rate [ Apical] Pulse Rate [ Posterior Bilateral Throughout] Respiratory Rate Respiratory Rate [Anterior Bilateral Throughout] Respiratory Rate [Posterior Bilateral Throughout] Blood Pressure 140/63 134/67 130/69 O2 Sat by Pulse Oximetry O2 Sat by Pulse Oximetry [ Assessment] 04/13/19 04/13/19 04/13/19 15:45 16:00 16:15 Temperature Pulse Rate 86 84 86 Pulse Rate [ Anterior Bilateral Throughout] Pulse Rate [ Apical] Pulse Rate [ Posterior Bilateral Throughout] Respiratory Rate Respiratory Rate [Anterior Bilateral Throughout] Respiratory Rate [Posterior Bilateral Throughout] Blood Pressure 135/64 142/54 135/73 O2 Sat by Pulse Oximetry O2 Sat by Pulse Oximetry [ Assessment] 04/13/19 04/13/19 04/13/19 16:30 16:45 17:00 Temperature Pulse Rate 93 H 86 88 Pulse Rate [ Anterior Bilateral Throughout] Pulse Rate [ Apical] Pulse Rate [ Posterior Bilateral Throughout] Respiratory Rate Respiratory Rate [Anterior Bilateral Throughout] Respiratory Rate [Posterior Bilateral Throughout] Blood Pressure 129/70 122/53 135/68 O2 Sat by Pulse Oximetry O2 Sat by Pulse Oximetry [ Assessment] 04/13/19 04/13/19 04/13/19 17:15 17:30 18:00 Temperature 98.0 F Pulse Rate 82 78 79 Pulse Rate [ Anterior Bilateral Throughout] Pulse Rate [ Apical] Pulse Rate [ Posterior Bilateral Throughout] Respiratory 20 Rate Respiratory Rate [Anterior Bilateral Throughout] Respiratory Rate [Posterior Bilateral Throughout] Blood Pressure 141/63 133/68 133/62 O2 Sat by Pulse Oximetry O2 Sat by Pulse Oximetry [ Assessment] General appearance: Present: no acute distress, well-nourished - EENT Eyes: PERRL, EOM intact ENT: hearing intact, clear oral mucosa Ears: bilateral: normal - Neck Neck: supple, normal ROM - Respiratory Respiratory effort: normal Respiratory: bilateral: CTA - Breasts Breasts: normal - Cardiovascular Heart rate: 88 Rhythm: regular Heart Sounds: Present: S1 & S2. Absent: gallop, rub Extremities: pulses intact, No edema, normal color, Full ROM, abnormal (Sacral decub ulcer) - Gastrointestinal General gastrointestinal: Present: soft, non-tender, non-distended, normal bowel sounds - Genitourinary Male genitourinary: normal - Integumentary Integumentary: clear, warm, dry - Musculoskeletal Musculoskeletal: generalized weakness - Neurologic Neurologic: moves all extremities - Psychiatric Psychiatric: depressed - Allied health notes Allied health notes reviewed: nursing, case management - Labs CBC & Chem 7: 04/13/19 07:31 04/13/19 07:31 Labs: Abnormal lab results 04/13/19 04/13/19 04/13/19 Range/Units 06:59 07:31 07:31 RBC 3.34 L (3.65-5.03) M/mm3 Hgb 8.9 L (11.8-15.2) gm/dl Hct 28.6 L (35.5-45.6) % MCH 27 L (28-32) pg MCHC 31 L (32-34) % RDW 19.6 H (13.2-15.2) % Chloride 96.4 L (98-107) mmol/L Carbon Dioxide 33 H (22-30) mmol/L BUN 66 H (9-20) mg/dL Creatinine 4.5 H (0.8-1.5) mg/dL Glucose 103 H (75-100) mg/dL POC Glucose 107 H (70-105)
[2019-04-14] MEDS: SODIUM HYPOCHLORITE, DAKIN'S 1/2 STRENGTH (0.25%) 473 ML TOPICAL SOLN TP SCH ×3 (01:16→22:33)
[2019-04-14] MEDS: INSULIN REGULAR, HUMAN 100 UNITS/1 ML SUB-Q SCH ×4 (05:14→18:30)
[2019-04-14] MEDS: IPRATROPIUM/ALBUTEROL SULFATE 3 ML AMPUL.NEB IH SCH ×3 (09:18→20:06)
[2019-04-14] MEDS: SERTRALINE 100 MG TAB PO SCH (10:07)
[2019-04-14] MEDS: risperiDONE 1 MG TAB PO SCH (10:07)
[2019-04-14] MEDS: FAMOTIDINE 20 MG TAB PO SCH (10:07)
--- NOTE | 2019-04-14 11:04 | Progress Note ---
Assessment and Plan Assessment: * End stage renal disease (outpatient TTS schedule) * Acute hypoxic respiratory failure s/p trach * KEON pneumonia --Sputum cx: MDR Acinetobacter * Cardiomyopathy - EF 35-40% * Atrial fibrillation * History of CVA * Anemia secondary to ESRD * Secondary hyperparathyroidism Plan * Continue HD MWF via [facility] * UF as tolerated * Nutrition per primary team * Dose medications for renal function * Epogen 20k TIW * AM labs ordered Subjective Date of service: 04/14/19 Principal diagnosis: Respiratory failure, acute on chronic systolic HF, ESRD Interval history: no acute issues noted overnight. tolerating HD sessions per HD nurses Objective - Exam Narrative Exam: General appearance: chronically ill, intubated, frail EENT: normocephalic Neck: trach collar in place Respiratory: coarse mechanical breath sounds bilaterally Cardiology: regular, S1S2, no edema Gastrointestinal: PEG and colostomy noted Integumentary: warm and dry Psychiatric: unable to assess - Vital Signs Vital signs: Vital Signs - 12hr 04/13/19 04/13/19 04/14/19 23:37 23:38 02:01 Temperature 98.4 F Pulse Rate 83 Pulse Rate [ Anterior Bilateral Throughout] Pulse Rate [ Posterior Bilateral Throughout] Respiratory 20 Rate Respiratory Rate [Anterior Bilateral Throughout] Respiratory Rate [Posterior Bilateral Throughout] Blood Pressure 135/61 O2 Sat by Pulse 100 Oximetry O2 Sat by Pulse 100 Oximetry [ Assessment] 04/14/19 04/14/19 04/14/19 05:44 05:45 07:42 Temperature 97.9 F 98.6 F Pulse Rate 81 83 Pulse Rate [ Anterior Bilateral Throughout] Pulse Rate [ Posterior Bilateral Throughout] Respiratory 18 16 Rate Respiratory Rate [Anterior Bilateral Throughout] Respiratory Rate [Posterior Bilateral Throughout] Blood Pressure 141/62 137/59 O2 Sat by Pulse 100 99 Oximetry O2 Sat by Pulse Oximetry [ Assessment] 04/14/19 04/14/19 04/14/19 09:11 09:19 09:28 Temperature Pulse Rate 79 Pulse Rate [ 88 Anterior Bilateral Throughout] Pulse Rate [ 79 Posterior Bilateral Throughout] Respiratory 18 Rate Respiratory 18 Rate [Anterior Bilateral Throughout] Respiratory 16 Rate [Posterior Bilateral Throughout] Blood Pressure O2 Sat by Pulse 97 Oximetry O2 Sat by Pulse 99 Oximetry [ Assessment] 04/14/19 09:30 Temperature Pulse Rate Pulse Rate [ Anterior Bilateral Throughout] Pulse Rate [ Posterior Bilateral Throughout] Respiratory Rate Respiratory Rate [Anterior Bilateral Throughout] Respiratory Rate [Posterior Bilateral Throughout] Blood Pressure O2 Sat by Pulse 99 Oximetry O2 Sat by Pulse Oximetry [ Assessment] - Lab 04/13/19 07:31 04/13/19 07:31 Most recent lab results ABG pH 7.424 pH Units (7.350-7.450) 03/19/19 04:23 ABG pCO2 48.0 mm Hg 03/19/19 04:23 ABG pO2 78.3 mm Hg (80.0-90.0) L 03/19/19 04:23 ABG HCO3 30.7 mmol/L (20.0-26.0) H 03/19/19 04:23 ABG O2 Saturation 97.0 % (95.0-99.0) 03/19/19 04:23 Calcium 9.8 mg/dL (8.4-10.2) 04/13/19 07:31 Phosphorus 4.30 mg/dL (2.5-4.5) D 03/31/19 10:26 Magnesium 2.70 mg/dL (1.7-2.3) H 03/30/19 10:13 Medications & Allergies - Medications Allergies/Adverse Reactions: Allergies haloperidol [From Haldol] Adverse Reaction (Verified 03/13/18 12:10) Unknown haloperidol lactate [From Haldol] Adverse Reaction (Verified 03/13/18 12:10) Unknown Home Medications: Home Medications Medication Instructions Recorded Confirmed Last Taken Type risperiDONE [RisperDAL] 1 mg PO QAM 03/13/18 02/21/19 Unknown History Sertraline [Zoloft] 100 mg PO QDAY 08/26/18 02/21/19 Unknown History Polyethylene Glycol 3350 [Miralax 17 gm PO QDAY #30 packet 11/05/18 02/21/19 Unknown Rx 3350] Aspirin EC [Halfprin EC] 81 mg PO DAILY #30 11/19/18 02/21/19 Unknown Rx Docusate Sodium [Colace CAP] 100 mg PO BID #60 11/19/18 02/21/19 Unknown Rx Folic Acid [Folvite] 1 mg PO DAILY #30 tab 11/19/18 02/21/19 Unknown Rx Famotidine [Pepcid] 20 mg PO DAILY tablet 12/08/18 02/21/19 Unknown Rx Gabapentin [Neurontin] 100 mg PO QHS capsule 12/08/18 02/21/19 Unknown Rx Metoprolol [Lopressor TAB] 50 mg PO BID 30 Days tablet 12/08/18 02/21/19 Unknown Rx Sevelamer Carbonate [Renvela] 800 mg PO TIDWM tablet 12/08/18 02/21/19 Unknown Rx hydrALAZINE [Apresoline TAB] 100 mg PO Q8HR #120 tablet 12/08/18 02/21/19 Unknown Rx Acetaminophen [Acetaminophen TAB] 650 mg PO Q12H PRN 12/15/18 02/21/19 Unknown History Glucagon,Human Recombinant 1 mg IJ Q15MIN PRN 12/15/18 02/21/19 Unknown History [Glucagon Emergency Kit] Insulin Aspart [NovoLOG 100 See Protocol SQ QWEEK 12/15/18 02/21/19 Unknown History UNITS/ML VIAL] Active Medications: Generic Name Dose Route Start Last Admin Trade Name Freq PRN Reason Stop Dose Admin Albuterol/Ipratropium 1 ampul 02/24/19 20:00 04/14/19 09:18 Duoneb *Not For Prn Use* IH 1 ampul TIDRT SANCHEZ Administration Lipase/Protease/Amylase 1 each 04/10/19 15:[address] 10,500 Unit FEEDTUBE PRN PRN For Clogged Feeding Tube Epoetin Solitario 20,000 unit 03/24/19 11:17 04/13/19 17:31 Procrit IV 20,000 unit UMA PRN Administration hemodialysis Famotidine 20 mg 02/23/19 10:00 04/14/19 10:07 Pepcid PO 20 mg DAILY SANCHEZ Administration Hydrophilic Ointment 1 applic 02/21/19 18:24 03/05/19 08:16 Vaseline Lip Therapy TP 1 applic Q2HR PRN Administration Dry Lips Sodium Chloride 100 mls @ 999 mls/hr 02/26/19 09:00 Nacl 0.9% IV UMA PRN Hypotension Insulin Human Regular 0 units 02/26/19 12:00 04/14/19 06:06 Humulin R SUB-Q Not Given Q6HR [facility] Protocol Metoprolol Tartrate 2.5 mg 02/28/19 12:06 03/15/19 05:15 Lopressor IV 2.5 mg Q4HR PRN Administration Tachycardia Multi-Ingred Cream/Lotion/Oil/Oint 1 applic 02/21/19 18:24 03/29/19 21:40 Artificial Tears Ophth Oint OU 1 applic Q4HR PRN Administration Dry Eye(s) Risperidone 1 mg 02/25/19 13:00 04/14/19 10:07 Risperdal PO 1 mg DAILY SANCHEZ Administration Sertraline HCl 100 mg 02/25/19 13:00 04/14/19 10:07 Zoloft PO 100 mg DAILY SANCHEZ Administration Simple Syrup 15 ml 04/10/19 15:16 Simple Syrup FEEDTUBE PRN PRN Hypoglycemia Simple Syrup 30 ml 04/10/19 15:16 Simple Syrup FEEDTUBE PRN PRN Hypoglycemia Sodium Bicarbonate 325 mg 04/10/19 15:16 Sodium Bicarbonate FEEDTUBE PRN PRN For Clogged Feeding Tube Sodium Hypochlorite 1 applic 04/01/19 13:00 04/14/19 10:07 Dakin's Half Strength TP 1 applicatio BID SANCHEZ Administration
--- NOTE | 2019-04-14 12:24 | Progress Note ---
Assessment and Plan 63 y/o male with multiple medical issues admitted with altered mental status, acute respiratory failure requiring mechanical ventilation No new recommendations for today. Please see below. 1. Finished therapy for Acinetobacter. 2. Continue T-piece 3. HD per renal 4. Awaiting placement. Subjective Date of service: 04/14/19 Principal diagnosis: Respiratory failure, acute on chronic systolic HF, ESRD Interval history: No acute events. Objective Vital Signs - 12hr 04/14/19 04/14/19 04/14/19 02:01 05:44 05:45 Temperature 97.9 F Pulse Rate 81 Pulse Rate [ Anterior Bilateral Throughout] Pulse Rate [ Posterior Bilateral Throughout] Respiratory 18 Rate Respiratory Rate [Anterior Bilateral Throughout] Respiratory Rate [Posterior Bilateral Throughout] Blood Pressure 141/62 O2 Sat by Pulse 100 Oximetry O2 Sat by Pulse 100 Oximetry [ Assessment] 04/14/19 04/14/19 04/14/19 07:42 09:11 09:19 Temperature 98.6 F Pulse Rate 83 79 Pulse Rate [ 88 Anterior Bilateral Throughout] Pulse Rate [ 79 Posterior Bilateral Throughout] Respiratory 16 18 Rate Respiratory 18 Rate [Anterior Bilateral Throughout] Respiratory 16 Rate [Posterior Bilateral Throughout] Blood Pressure 137/59 O2 Sat by Pulse 99 97 Oximetry O2 Sat by Pulse Oximetry [ Assessment] 04/14/19 04/14/19 09:28 09:30 Temperature Pulse Rate Pulse Rate [ Anterior Bilateral Throughout] Pulse Rate [ Posterior Bilateral Throughout] Respiratory Rate Respiratory Rate [Anterior Bilateral Throughout] Respiratory Rate [Posterior Bilateral Throughout] Blood Pressure O2 Sat by Pulse 99 Oximetry O2 Sat by Pulse 99 Oximetry [ Assessment] Constitutional: no acute distress, alert Eyes: non-icteric ENT: oropharynx moist Neck: supple Effort: normal Ascultation: Bilateral: diminished breath sounds, other (coarse BS bilaterally) Percussion: Bilateral: not dull Cardiovascular: other (tachy, RR; no mrg) Gastrointestinal: normoactive bowel sounds, soft, non-tender, non-distended, other (ostomy in place, brown stool) Extremities: no cyanosis, no edema, pink and warm Neurologic: other (mild weakness LUE, o/w nonfocal) Psychiatric: other (unable to assess) CBC and BMP: 04/13/19 07:31 04/13/19 07:31 ABG, PT/INR, D-dimer: ABG POC ABG pH 7.510 (7.35-7.45) H 03/18/19 06:38 ABG pH 7.424 pH Units (7.350-7.450) 03/19/19 04:23 POC ABG pCO2 38.9 (35-45) 03/18/19 06:38 ABG pCO2 48.0 mm Hg 03/19/19 04:23 POC ABG pO2 164 (80-105) H 03/18/19 06:38 ABG pO2 78.3 mm Hg (80.0-90.0) L 03/19/19 04:23 POC ABG HCO3 31.0 (22-26 mml/L) 03/18/19 06:38 POC ABG Total CO2 32 (23-27mmol/L) 03/18/19 06:38 POC ABG O2 Sat 100 03/18/19 06:38 ABG O2 Saturation 97.0 % (95.0-99.0) 03/19/19 04:23 PT/INR, D-dimer PT 16.3 Sec. (12.2-14.9) H 03/01/19 09:39 INR 1.35 (0.87-1.13) H 03/01/19 09:39 2987.82 ng/mlDDU (0-234) H 02/22/19 05:54 Abnormal lab findings: Abnormal Labs 02/21/19 02/21/19 02/21/19 18:30 18:30 18:30 WBC RBC 3.26 L Hgb 8.8 L Hct 29.0 L MCH 27 L MCHC 30 L RDW 19.1 H Lymph % (Auto) 6.1 L Davison % (Auto) Eos % (Auto) Lymph # 0.4 L Davison # Eos # Seg Neutrophils % 86.2 H Seg Neuts % (Manual) Lymphocytes % (Manual) Eosinophils % (Manual) Seg Neutrophils # Lymphocytes # (Manual) Eosinophils # (Manual) PT INR D-Dimer POC ABG pH POC ABG pCO2 POC ABG pO2 ABG pO2 ABG HCO3 ABG Base Excess ABG Hemoglobin Oxyhemoglobin Sodium 133 L Potassium 3.3 L Chloride 93.1 L Carbon Dioxide 33 H BUN Creatinine Glucose 161 H POC Glucose Calcium Phosphorus Magnesium ALT Alkaline Phosphatase 136 H Total Creatine Kinase 37 L CK-MB (CK-2) Rel Index Troponin T 0.192 H* Albumin 2.4 L LDL Cholesterol Direct 36 L PTH Intact Salicylates Acetaminophen Crossmatch 02/21/19 02/21/19 02/21/19 18:42 20:04 20:04 WBC RBC Hgb Hct MCH MCHC RDW Lymph % (Auto) Davison % (Auto) Eos % (Auto) Lymph # Davison # Eos # Seg Neutrophils % Seg Neuts % (Manual) Lymphocytes % (Manual) Eosinophils % (Manual) Seg Neutrophils # Lymphocytes # (Manual) Eosinophils # (Manual) PT INR D-Dimer POC ABG pH POC ABG pCO2 56.7 H POC ABG pO2 291 H ABG pO2 ABG HCO3 ABG Base Excess ABG Hemoglobin Oxyhemoglobin Sodium Potassium Chloride Carbon Dioxide BUN Creatinine Glucose POC Glucose Calcium Phosphorus Magnesium ALT Alkaline Phosphatase Total Creatine Kinase CK-MB (CK-2) Rel Index Troponin T Albumin LDL Cholesterol Direct PTH Intact Salicylates < 0.3 L Acetaminophen < 5.0 L Crossmatch 02/21/19 02/22/19 02/22/19 22:35 03:42 03:42 WBC RBC 3.20 L Hgb 8.8 L Hct 27.6 L MCH MCHC RDW 18.9 H Lymph % (Auto) 7.4 L Davison % (Auto) Eos % (Auto) Lymph # 0.7 L Davison # Eos # Seg Neutrophils % 84.7 H Seg Neuts % (Manual) Lymphocytes % (Manual) Eosinophils % (Manual) Seg Neutrophils # Lymphocytes # (Manual) Eosinophils # (Manual) PT INR D-Dimer POC ABG pH POC ABG pCO2 POC ABG pO2 ABG pO2 ABG HCO3 ABG Base Excess ABG Hemoglobin Oxyhemoglobin Sodium 134 L Potassium 2.6 L* D Chloride Carbon Dioxide BUN Creatinine Glucose POC Glucose Calcium Phosphorus Magnesium ALT Alkaline Phosphatase Total Creatine Kinase CK-MB (CK-2) Rel Index 5.2 H Troponin T 0.202 H* Albumin LDL Cholesterol Direct PTH Intact Salicylates Acetaminophen Crossmatch 02/22/19 02/22/19 02/22/19 03:42 05:54 09:04 WBC RBC Hgb Hct MCH MCHC RDW Lymph % (Auto) Dav[place] % (Auto) Eos % (Auto) Lymph # Davison # Eos # Seg Neutrophils % Seg Neuts % (Manual) Lymphocytes % (Manual) Eosinophils % (Manual) Seg Neutrophils # Lymphocytes # (Manual) Eosinophils # (Manual) PT INR D-Dimer 2987.82 H POC ABG pH 7.451 H POC ABG pCO2 POC ABG pO2 ABG pO2 ABG HCO3 ABG Base Excess ABG Hemoglobin Oxyhemoglobin Sodium Potassium Chloride Carbon Dioxide BUN Creatinine Glucose POC Glucose Calcium Phosphorus Magnesium ALT Alkaline Phosphatase Total Creatine Kinase CK-MB (CK-2) Rel Index 5.7 H Troponin T 0.193 H* Albumin LDL Cholesterol Direct PTH Intact Salicylates Acetaminophen Crossmatch 02/22/19 02/22/19 02/23/19 10:36 23:56 00:52 WBC RBC Hgb Hct MCH MCHC RDW Lymph % (Auto) Davison % (Auto) Eos % (Auto) Lymph # Davison # Eos # Seg Neutrophils % Seg Neuts % (Manual) Lymphocytes % (Manual) Eosinophils % (Manual) Seg Neutrophils # Lymphocytes # (Manual) Eosinophils # (Manual) PT INR D-Dimer POC ABG pH POC ABG pCO2 POC ABG pO2 ABG pO2 ABG HCO3 ABG Base Excess ABG Hemoglobin Oxyhemoglobin Sodium Potassium 3.1 L Chloride Carbon Dioxide BUN Creatinine Glucose POC Glucose 58 L 111 H Calcium Phosphorus Magnesium ALT Alkaline Phosphatase Total Creatine Kinase CK-MB (CK-2) Rel Index Troponin T Albumin LDL Cholesterol Direct PTH Intact Salicylates Acetaminophen Crossmatch 02/23/19 02/23/19 02/23/19 05:00 06:35 14:26 WBC RBC Hgb Hct MCH MCHC RDW Lymph % (Auto) Dav[place] % (Auto) Eos % (Auto) Lymph # Dav[place] # Eos # Seg Neutrophils % Seg Neuts % (Manual) Lymphocytes % (Manual) Eosinophils % (Manual) Seg Neutrophils # Lymphocytes # (Manual) Eosinophils # (Manual) PT INR D-Dimer POC ABG pH POC ABG pCO2 POC ABG pO2 ABG pO2 ABG HCO3 ABG Base Excess ABG Hemoglobin Oxyhemoglobin Sodium 135 L Potassium 3.1 L Chloride Carbon Dioxide BUN 21 H Creatinine 2.0 H Glucose 57 L POC Glucose 64 L 62 L Calcium Phosphorus Magnesium ALT Alkaline Phosphatase Total Creatine Kinase CK-MB (CK-2) Rel Index Troponin T Albumin LDL Cholesterol Direct PTH Intact Salicylates Acetaminophen Crossmatch 02/24/19 02/24/19 02/24/19 02:11 04:12 04:55 WBC RBC 2.84 L Hgb 7.8 L Hct 24.5 L MCH MCHC RDW 19.5 H Lymph % (Auto) Dav[place] % (Auto) Eos % (Auto) Lymph # Davison # Eos # Seg Neutrophils % Seg Neuts % (Manual) Lymphocytes % (Manual) Eosinophils % (Manual) Seg Neutrophils # Lymphocytes # (Manual) Eosinophils # (Manual) PT INR D-Dimer POC ABG pH 7.511 H POC ABG pCO2 33.9 L POC ABG pO2 62 L ABG pO2 ABG HCO3 ABG Base Excess ABG Hemoglobin Oxyhemoglobin Sodium Potassium Chloride Carbon Dioxide BUN Creatinine Glucose POC Glucose 69 L Calcium Phosphorus Magnesium ALT Alkaline Phosphatase Total Creatine Kinase CK-MB (CK-2) Rel Index Troponin T Albumin LDL Cholesterol Direct PTH Intact Salicylates Acetaminophen Crossmatch 02/24/19 02/24/19 02/25/19 04:55 05:41 04:45 WBC RBC Hgb Hct MCH MCHC RDW Lymph % (Auto) Davison % (Auto) Eos % (Auto) Lymph # Davison # Eos # Seg Neutrophils % Seg Neuts % (Manual) Lymphocytes % (Manual) Eosinophils % (Manual) Seg Neutrophils # Lymphocytes # (Manual) Eosinophils # (Manual) PT INR D-Dimer POC ABG pH 7.466 H POC ABG pCO2 POC ABG pO2 75 L ABG pO2 ABG HCO3 ABG Base Excess ABG Hemoglobin Oxyhemoglobin Sodium Potassium Chloride Carbon Dioxide BUN Creatinine 1.8 H Glucose 73 L POC Glucose 127 H Calcium Phosphorus Magnesium ALT Alkaline Phosphatase Total Creatine Kinase CK-MB (CK-2) Rel Index Troponin T Albumin LDL Cholesterol Direct PTH Intact Salicylates Acetaminophen Crossmatch 02/25/19 02/25/19 02/26/19 16:34 21:33 03:45 WBC RBC 2.96 L Hgb 8.0 L Hct 25.8 L MCH 27 L MCHC 31 L RDW 20.0 H Lymph % (Auto) Dav[place] % (Auto) Eos % (Auto) Lymph # Dav[place] # Eos # Seg Neutrophils % Seg Neuts % (Manual) Lymphocytes % (Manual) Eosinophils % (Manual) Seg Neutrophils # Lymphocytes # (Manual) Eosinophils # (Manual) PT INR D-Dimer POC ABG pH POC ABG pCO2 POC ABG pO2 ABG pO2 ABG HCO3 ABG Base Excess ABG Hemoglobin Oxyhemoglobin Sodium Potassium Chloride Carbon Dioxide BUN Creatinine Glucose POC Glucose 141 H 106 H Calcium Phosphorus Magnesium ALT Alkaline Phosphatase Total Creatine Kinase CK-MB (CK-2) Rel Index Troponin T Albumin LDL Cholesterol Direct PTH Intact Salicylates Acetaminophen Crossmatch 02/26/19 02/26/19 02/26/19 03:45 04:13 07:53 WBC RBC Hgb Hct MCH MCHC RDW Lymph % (Auto) Dav[place] % (Auto) Eos % (Auto) Lymph # Dav[place] # Eos # Seg Neutrophils % Seg Neuts % (Manual) Lymphocytes % (Manual) Eosinophils % (Manual) Seg Neutrophils # Lymphocytes # (Manual) Eosinophils # (Manual) PT INR D-Dimer POC ABG pH 7.470 H POC ABG pCO2 POC ABG pO2 ABG pO2 ABG HCO3 ABG Base Excess ABG Hemoglobin Oxyhemoglobin Sodium Potassium Chloride Carbon Dioxide BUN Creatinine 1.8 H Glucose POC Glucose 110 H Calcium Phosphorus Magnesium ALT Alkaline Phosphatase Total Creatine Kinase CK-MB (CK-2) Rel Index Troponin T Albumin LDL Cholesterol Direct PTH Intact Salicylates Acetaminophen Crossmatch 02/26/19 02/26/19 02/27/19 11:56 17:43 00:12 WBC RBC Hgb Hct MCH MCHC RDW Lymph % (Auto) Dav[place] % (Auto) Eos % (Auto) Lymph # Dav[place] # Eos # Seg Neutrophils % Seg Neuts % (Manual) Lymphocytes % (Manual) Eosinophils % (Manual) Seg Neutrophils # Lymphocytes # (Manual) Eosinophils # (Manual) PT INR D-Dimer POC ABG pH POC ABG pCO2 POC ABG pO2 ABG pO2 ABG HCO3 ABG Base Excess ABG Hemoglobin Oxyhemoglobin Sodium Potassium Chloride Carbon Dioxide BUN Creatinine Glucose POC Glucose 112 H 127 H 127 H Calcium Phosphorus Magnesium ALT Alkaline Phosphatase Total Creatine Kinase CK-MB (CK-2) Rel Index Troponin T Albumin LDL Cholesterol Direct PTH Intact Salicylates Acetaminophen Crossmatch 02/27/19 02/27/19 02/27/19 04:35 13:15 18:02 WBC RBC Hgb Hct MCH MCHC RDW Lymph % (Auto) Dav[place] % (Auto) Eos % (Auto) Lymph # Davison # Eos # Seg Neutrophils % Seg Neuts % (Manual) Lymphocytes % (Manual) Eosinophils % (Manual) Seg Neutrophils # Lymphocytes # (Manual) Eosinophils # (Manual) PT INR D-Dimer POC ABG pH 7.483 H POC ABG pCO2 POC ABG pO2 61 L ABG pO2 ABG HCO3 ABG Base Excess ABG Hemoglobin Oxyhemoglobin Sodium Potassium Chloride Carbon Dioxide BUN Creatinine Glucose POC Glucose 143 H 106 H Calcium Phosphorus Magnesium ALT Alkaline Phosphatase Total Creatine Kinase CK-MB (CK-2) Rel Index Troponin T Albumin LDL Cholesterol Direct PTH Intact Salicylates Acetaminophen Crossmatch 02/28/19 02/28/19 02/28/19 05:50 11:59 17:52 WBC RBC Hgb Hct MCH MCHC RDW Lymph % (Auto) Dav[place] % (Auto) Eos % (Auto) Lymph # Davison # Eos # Seg Neutrophils % Seg Neuts % (Manual) Lymphocytes % (Manual) Eosinophils % (Manual) Seg Neutrophils # Lymphocytes # (Manual) Eosinophils # (Manual) PT INR D-Dimer POC ABG pH POC ABG pCO2 POC ABG pO2 ABG pO2 ABG HCO3 ABG Base Excess ABG Hemoglobin Oxyhemoglobin Sodium Potassium Chloride Carbon Dioxide BUN Creatinine Glucose POC Glucose 134 H 128 H 142 H Calcium Phosphorus Magnesium ALT Alkaline Phosphatase Total Creatine Kinase CK-MB (CK-2) Rel Index Troponin T Albumin LDL Cholesterol Direct PTH Intact Salicylates Acetaminophen Crossmatch 02/28/19 03/01/19 03/01/19 23:13 05:40 09:39 WBC RBC Hgb Hct MCH MCHC RDW Lymph % (Auto) Davison % (Auto) Eos % (Auto) Lymph # Davison # Eos # Seg Neutrophils % Seg Neuts % (Manual) Lymphocytes % (Manual) Eosinophils % (Manual) Seg Neutrophils # Lymphocytes # (Manual) Eosinophils # (Manual) PT 16.3 H INR 1.35 H D-Dimer POC ABG pH POC ABG pCO2 POC ABG pO2 ABG pO2 ABG HCO3 ABG Base Excess ABG Hemoglobin Oxyhemoglobin Sodium Potassium Chloride Carbon Dioxide BUN Creatinine Glucose POC Glucose 112 H 111 H Calcium Phosphorus Magnesium ALT Alkaline Phosphatase Total Creatine Kinase CK-MB (CK-2) Rel Index Troponin T Albumin LDL Cholesterol Direct PTH Intact Salicylates Acetaminophen Crossmatch 03/01/19 03/01/19 03/01/19 11:56 13:54 17:59 WBC RBC Hgb Hct MCH MCHC RDW Lymph % (Auto) Davison % (Auto) Eos % (Auto) Lymph # Davison # Eos # Seg Neutrophils % Seg Neuts % (Manual) Lymphocytes % (Manual) Eosinophils % (Manual) Seg Neutrophils # Lymphocytes # (Manual) Eosinophils # (Manual) PT INR D-Dimer POC ABG pH POC ABG pCO2 POC ABG pO2 ABG pO2 ABG HCO3 ABG Base Excess ABG Hemoglobin Oxyhemoglobin Sodium Potassium Chloride Carbon Dioxide BUN 33 H Creatinine 2.8 H D Glucose 176 H POC Glucose 199 H 147 H Calcium Phosphorus Magnesium ALT Alkaline Phosphatase Total Creatine Kinase CK-MB (CK-2) Rel Index Troponin T Albumin LDL Cholesterol Direct PTH Intact Salicylates Acetaminophen Crossmatch 03/02/19 03/02/19 03/02/19 05:15 05:15 05:15 WBC RBC 2.73 L Hgb 7.4 L Hct 23.0 L MCH 27 L MCHC RDW 19.9 H Lymph % (Auto) Davison % (Auto) 7.9 H Eos % (Auto) 7.6 H Lymph # 1.0 L Davison # Eos # 0.5 H Seg Neutrophils % Seg Neuts % (Manual) Lymphocytes % (Manual) Eosinophils % (Manual) Seg Neutrophils # Lymphocytes # (Manual) Eosinophils # (Manual) PT INR D-Dimer POC ABG pH POC ABG pCO2 POC ABG pO2 ABG pO2 ABG HCO3 ABG Base Excess ABG Hemoglobin Oxyhemoglobin Sodium Potassium Chloride Carbon Dioxide BUN 43 H Creatinine 3.2 H Glucose POC Glucose Calcium Phosphorus 2.30 L Magnesium ALT Alkaline Phosphatase Total Creatine Kinase CK-MB (CK-2) Rel Index Troponin T Albumin LDL Cholesterol Direct PTH Intact 267.6 H Salicylates Acetaminophen Crossmatch 03/02/19 03/02/19 03/03/19 12:32 18:20 13:30 WBC RBC Hgb Hct MCH MCHC RDW Lymph % (Auto) Davison % (Auto) Eos % (Auto) Lymph # Davison # Eos # Seg Neutrophils % Seg Neuts % (Manual) Lymphocytes % (Manual) Eosinophils % (Manual) Seg Neutrophils # Lymphocytes # (Manual) Eosinophils # (Manual) PT INR D-Dimer POC ABG pH POC ABG pCO2 POC ABG pO2 ABG pO2 ABG HCO3 ABG Base Excess ABG Hemoglobin Oxyhemoglobin Sodium Potassium Chloride 97.3 L Carbon Dioxide BUN 26 H Creatinine 2.2 H Glucose 73 L POC Glucose 111 H 156 H Calcium Phosphorus Magnesium ALT Alkaline Phosphatase Total Creatine Kinase CK-MB (CK-2) Rel Index Troponin T Albumin LDL Cholesterol Direct PTH Intact Salicylates Acetaminophen Crossmatch 03/04/19 03/04/19 03/04/19 00:02 05:37 05:40 WBC RBC 2.63 L Hgb 7.2 L Hct 22.2 L MCH MCHC RDW 20.2 H Lymph % (Auto) 10.5 L Davison % (Auto) Eos % (Auto) 4.6 H Lymph # 0.7 L Davison # Eos # Seg Neutrophils % 76.9 H Seg Neuts % (Manual) Lymphocytes % (Manual) Eosinophils % (Manual) Seg Neutrophils # Lymphocytes # (Manual) Eosinophils # (Manual) PT INR D-Dimer POC ABG pH POC ABG pCO2 POC ABG pO2 ABG pO2 ABG HCO3 ABG Base Excess ABG Hemoglobin Oxyhemoglobin Sodium Potassium Chloride Carbon Dioxide BUN Creatinine Glucose POC Glucose 136 H 123 H Calcium Phosphorus Magnesium ALT Alkaline Phosphatase Total Creatine Kinase CK-MB (CK-2) Rel Index Troponin T Albumin LDL Cholesterol Direct PTH Intact Salicylates Acetaminophen Crossmatch 03/04/19 03/04/19 03/04/19 05:40 11:39 23:20 WBC RBC Hgb Hct MCH MCHC RDW Lymph % (Auto) Davison % (Auto) Eos % (Auto) Lymph # Davison # Eos # Seg Neutrophils % Seg Neuts % (Manual) Lymphocytes % (Manual) Eosinophils % (Manual) Seg Neutrophils # Lymphocytes # (Manual) Eosinophils # (Manual) PT INR D-Dimer POC ABG pH POC ABG pCO2 POC ABG pO2 ABG pO2 ABG HCO3 ABG Base Excess ABG Hemoglobin Oxyhemoglobin Sodium Potassium Chloride Carbon Dioxide BUN 34 H Creatinine 2.7 H Glucose 114 H POC Glucose 175 H 151 H Calcium Phosphorus Magnesium ALT Alkaline Phosphatase Total Creatine Kinase CK-MB (CK-2) Rel Index Troponin T Albumin LDL Cholesterol Direct PTH Intact Salicylates Acetaminophen Crossmatch 03/05/19 03/05/19 03/05/19 05:37 12:08 17:11 WBC RBC Hgb Hct MCH MCHC RDW Lymph % (Auto) Dav[place] % (Auto) Eos % (Auto) Lymph # Dav[place] # Eos # Seg Neutrophils % Seg Neuts % (Manual) Lymphocytes % (Manual) Eosinophils % (Manual) Seg Neutrophils # Lymphocytes # (Manual) Eosinophils # (Manual) PT INR D-Dimer POC ABG pH POC ABG pCO2 POC ABG pO2 ABG pO2 ABG HCO3 ABG Base Excess ABG Hemoglobin Oxyhemoglobin Sodium Potassium Chloride Carbon Dioxide BUN Creatinine Glucose POC Glucose 134 H 135 H 135 H Calcium Phosphorus Magnesium ALT Alkaline Phosphatase Total Creatine Kinase CK-MB (CK-2) Rel Index Troponin T Albumin LDL Cholesterol Direct PTH Intact Salicylates Acetaminophen Crossmatch 03/06/19 03/06/19 03/06/19 00:16 13:05 18:09 WBC RBC Hgb Hct MCH MCHC RDW Lymph % (Auto) Dav[place] % (Auto) Eos % (Auto) Lymph # Dav[place] # Eos # Seg Neutrophils % Seg Neuts % (Manual) Lymphocytes % (Manual) Eosinophils % (Manual) Seg Neutrophils # Lymphocytes # (Manual) Eosinophils # (Manual) PT INR D-Dimer POC ABG pH POC ABG pCO2 POC ABG pO2 ABG pO2 ABG HCO3 ABG Base Excess ABG Hemoglobin Oxyhemoglobin Sodium Potassium Chloride Carbon Dioxide BUN Creatinine Glucose POC Glucose 117 H 113 H 131 H Calcium Phosphorus Magnesium ALT Alkaline Phosphatase Total Creatine Kinase CK-MB (CK-2) Rel Index Troponin T Albumin LDL Cholesterol Direct PTH Intact Salicylates Acetaminophen Crossmatch 03/07/19 03/08/19 03/08/19 05:25 05:33 16:00 WBC RBC 2.44 L Hgb 6.6 L Hct 20.8 L MCH 27 L MCHC RDW 19.2 H Lymph % (Auto) Dav[place] % (Auto) Eos % (Auto) 8.6 H Lymph # 0.8 L Davison # Eos # 0.5 H Seg Neutrophils % 70.7 H Seg Neuts % (Manual) Lymphocytes % (Manual) Eosinophils % (Manual) Seg Neutrophils # Lymphocytes # (Manual) Eosinophils # (Manual) PT INR D-Dimer POC ABG pH POC ABG pCO2 POC ABG pO2 ABG pO2 ABG HCO3 ABG Base Excess ABG Hemoglobin Oxyhemoglobin Sodium Potassium Chloride Carbon Dioxide BUN Creatinine Glucose POC Glucose 106 H 108 H Calcium Phosphorus Magnesium ALT Alkaline Phosphatase Total Creatine Kinase CK-MB (CK-2) Rel Index Troponin T Albumin LDL Cholesterol Direct PTH Intact Salicylates Acetaminophen Crossmatch 03/08/19 03/08/19 03/08/19 16:00 18:38 Unknown WBC RBC Hgb Hct MCH MCHC RDW Lymph % (Auto) Dav[place] % (Auto) Eos % (Auto) Lymph # [place] # Eos # Seg Neutrophils % Seg Neuts % (Manual) Lymphocytes % (Manual) Eosinophils % (Manual) Seg Neutrophils # Lymphocytes # (Manual) Eosinophils # (Manual) PT INR D-Dimer POC ABG pH POC ABG pCO2 POC ABG pO2 ABG pO2 ABG HCO3 ABG Base Excess ABG Hemoglobin Oxyhemoglobin Sodium Potassium 5.4 H D Chloride Carbon Dioxide BUN 47 H Creatinine 2.6 H Glucose POC Glucose 123 H Calcium Phosphorus Magnesium ALT < 5 L Alkaline Phosphatase Total Creatine Kinase CK-MB (CK-2) Rel Index Troponin T Albumin 2.2 L LDL Cholesterol Direct PTH Intact Salicylates Acetaminophen Crossmatch See Detail 03/09/19 03/09/19 03/09/19 10:48 12:28 13:53 WBC RBC 2.85 L Hgb 7.7 L Hct 24.2 L MCH 27 L MCHC RDW 18.7 H Lymph % (Auto) [place] % (Auto) Eos % (Auto) Lymph # [place] # Eos # Seg Neutrophils % Seg Neuts % (Manual) Lymphocytes % (Manual) Eosinophils % (Manual) Seg Neutrophils # Lymphocytes # (Manual) Eosinophils # (Manual) PT INR D-Dimer POC ABG pH POC ABG pCO2 POC ABG pO2 ABG pO2 ABG HCO3 30.5 H ABG Base Excess 5.6 H ABG Hemoglobin 8.1 L Oxyhemoglobin 93.8 L Sodium Potassium Chloride Carbon Dioxide BUN Creatinine Glucose POC Glucose 114 H Calcium Phosphorus Magnesium ALT Alkaline Phosphatase Total Creatine Kinase CK-MB (CK-2) Rel Index Troponin T Albumin LDL Cholesterol Direct PTH Intact Salicylates Acetaminophen Crossmatch 03/09/19 03/09/19 03/10/19 17:58 23:53 12:01 WBC RBC Hgb Hct MCH MCHC RDW Lymph % (Auto) [place] % (Auto) Eos % (Auto) Lymph # [place] # Eos # Seg Neutrophils % Seg Neuts % (Manual) Lymphocytes % (Manual) Eosinophils % (Manual) Seg Neutrophils # Lymphocytes # (Manual) Eosinophils # (Manual) PT INR D-Dimer POC ABG pH POC ABG pCO2 POC ABG pO2 ABG pO2 ABG HCO3 ABG Base Excess ABG Hemoglobin Oxyhemoglobin Sodium Potassium Chloride Carbon Dioxide BUN Creatinine Glucose POC Glucose 108 H 128 H 144 H Calcium Phosphorus Magnesium ALT Alkaline Phosphatase Total Creatine Kinase CK-MB (CK-2) Rel Index Troponin T Albumin LDL Cholesterol Direct PTH Intact Salicylates Acetaminophen Crossmatch 03/10/19 03/11/19 03/11/19 16:50 00:24 05:02 WBC RBC Hgb Hct MCH MCHC RDW Lymph % (Auto) [place] % (Auto) Eos % (Auto) Lymph # [place] # Eos # Seg Neutrophils % Seg Neuts % (Manual) Lymphocytes % (Manual) Eosinophils % (Manual) Seg Neutrophils # Lymphocytes # (Manual) Eosinophils # (Manual) PT INR D-Dimer POC ABG pH POC ABG pCO2 POC ABG pO2 ABG pO2 ABG HCO3 ABG Base Excess ABG Hemoglobin Oxyhemoglobin Sodium Potassium Chloride Carbon Dioxide BUN Creatinine Glucose POC Glucose 147 H 123 H 120 H Calcium Phosphorus Magnesium ALT Alkaline Phosphatase Total Creatine Kinase CK-MB (CK-2) Rel Index Troponin T Albumin LDL Cholesterol Direct PTH Intact Salicylates Acetaminophen Crossmatch 03/11/19 03/11/19 03/11/19 11:56 12:20 18:37 WBC RBC Hgb Hct MCH MCHC RDW Lymph % (Auto) [place] % (Auto) Eos % (Auto) Lymph # [place] # Eos # Seg Neutrophils % Seg Neuts % (Manual) Lymphocytes % (Manual) Eosinophils % (Manual) Seg Neutrophils # Lymphocytes # (Manual) Eosinophils # (Manual) PT INR D-Dimer POC ABG pH POC ABG pCO2 POC ABG pO2 ABG pO2 ABG HCO3 ABG Base Excess ABG Hemoglobin Oxyhemoglobin Sodium Potassium 5.2 H Chloride Carbon Dioxide BUN Creatinine Glucose POC Glucose 123 H 125 H Calcium Phosphorus Magnesium ALT Alkaline Phosphatase Total Creatine Kinase CK-MB (CK-2) Rel Index Troponin T Albumin LDL Cholesterol Direct PTH Intact Salicylates Acetaminophen Crossmatch 03/11/19 03/12/19 03/12/19 22:52 12:04 18:25 WBC RBC Hgb Hct MCH MCHC RDW Lymph % (Auto) [place] % (Auto) Eos % (Auto) Lymph # [place] # Eos # Seg Neutrophils % Seg Neuts % (Manual) Lymphocytes % (Manual) Eosinophils % (Manual) Seg Neutrophils # Lymphocytes # (Manual) Eosinophils # (Manual) PT INR D-Dimer POC ABG pH POC ABG pCO2 POC ABG pO2 ABG pO2 ABG HCO3 ABG Base Excess ABG Hemoglobin Oxyhemoglobin Sodium Potassium Chloride Carbon Dioxide BUN Creatinine Glucose POC Glucose 110 H 106 H 118 H Calcium Phosphorus Magnesium ALT Alkaline Phosphatase Total Creatine Kinase CK-MB (CK-2) Rel Index Troponin T Albumin LDL Cholesterol Direct PTH Intact Salicylates Acetaminophen Crossmatch 03/12/19 03/13/19 03/13/19 23:36 04:38 04:38 WBC RBC 2.95 L Hgb 7.9 L Hct 24.9 L MCH 27 L MCHC RDW 19.9 H Lymph % (Auto) 11.1 L [place] % (Auto) 8.1 H Eos % (Auto) 4.4 H Lymph # 0.9 L Dav[place] # Eos # Seg Neutrophils % 75.4 H Seg Neuts % (Manual) Lymphocytes % (Manual) Eosinophils % (Manual) Seg Neutrophils # Lymphocytes # (Manual) Eosinophils # (Manual) PT INR D-Dimer POC ABG pH POC ABG pCO2 POC ABG pO2 ABG pO2 ABG HCO3 ABG Base Excess ABG Hemoglobin Oxyhemoglobin Sodium 136 L Potassium 5.1 H Chloride 93.8 L Carbon Dioxide BUN 48 H Creatinine 2.7 H Glucose 102 H POC Glucose 115 H Calcium Phosphorus Magnesium ALT < 5 L Alkaline Phosphatase 143 H Total Creatine Kinase CK-MB (CK-2) Rel Index Troponin T Albumin 2.5 L LDL Cholesterol Direct PTH Intact Salicylates Acetaminophen Crossmatch 03/13/19 03/13/19 03/13/19 05:33 13:37 18:03 WBC RBC Hgb Hct MCH MCHC RDW Lymph % (Auto) Davison % (Auto) Eos % (Auto) Lymph # Davison # Eos # Seg Neutrophils % Seg Neuts % (Manual) Lymphocytes % (Manual) Eosinophils % (Manual) Seg Neutrophils # Lymphocytes # (Manual) Eosinophils # (Manual) PT INR D-Dimer POC ABG pH POC ABG pCO2 POC ABG pO2 ABG pO2 ABG HCO3 ABG Base Excess ABG Hemoglobin Oxyhemoglobin Sodium Potassium Chloride Carbon Dioxide BUN Creatinine Glucose POC Glucose 140 H 150 H 158 H Calcium Phosphorus Magnesium ALT Alkaline Phosphatase Total Creatine Kinase CK-MB (CK-2) Rel Index Troponin T Albumin LDL Cholesterol Direct PTH Intact Salicylates Acetaminophen Crossmatch 03/13/19 03/14/19 03/14/19 23:32 05:24 12:20 WBC RBC Hgb Hct MCH MCHC RDW Lymph % (Auto) Dav[place] % (Auto) Eos % (Auto) Lymph # Davison # Eos # Seg Neutrophils % Seg Neuts % (Manual) Lymphocytes % (Manual) Eosinophils % (Manual) Seg Neutrophils # Lymphocytes # (Manual) Eosinophils # (Manual) PT INR D-Dimer POC ABG pH POC ABG pCO2 POC ABG pO2 ABG pO2 ABG HCO3 ABG Base Excess ABG Hemoglobin Oxyhemoglobin Sodium Potassium Chloride Carbon Dioxide BUN Creatinine Glucose POC Glucose 162 H 146 H 127 H Calcium Phosphorus Magnesium ALT Alkaline Phosphatase Total Creatine Kinase CK-MB (CK-2) Rel Index Troponin T Albumin LDL Cholesterol Direct PTH Intact Salicylates Acetaminophen Crossmatch 03/14/19 03/14/19 03/15/19 18:05 23:57 04:38 WBC 12.8 H RBC 3.11 L Hgb 8.1 L Hct 26.5 L MCH 26 L MCHC 31 L RDW 19.7 H Lymph % (Auto) 4.4 L Davison % (Auto) 7.4 H Eos % (Auto) Lymph # 0.6 L Davison # 0.9 H Eos # Seg Neutrophils % 87.3 H Seg Neuts % (Manual) Lymphocytes % (Manual) Eosinophils % (Manual) Seg Neutrophils # 11.2 H Lymphocytes # (Manual) Eosinophils # (Manual) PT INR D-Dimer POC ABG pH POC ABG pCO2 POC ABG pO2 ABG pO2 ABG HCO3 ABG Base Excess ABG Hemoglobin Oxyhemoglobin Sodium Potassium Chloride Carbon Dioxide BUN Creatinine Glucose POC Glucose 142 H 155 H Calcium Phosphorus Magnesium ALT Alkaline Phosphatase Total Creatine Kinase CK-MB (CK-2) Rel Index Troponin T Albumin LDL Cholesterol Direct PTH Intact Salicylates Acetaminophen Crossmatch 03/15/19 03/15/19 03/15/19 04:38 05:31 11:32 WBC RBC Hgb Hct MCH MCHC RDW Lymph % (Auto) [place] % (Auto) Eos % (Auto) Lymph # [place] # Eos # Seg Neutrophils % Seg Neuts % (Manual) Lymphocytes % (Manual) Eosinophils % (Manual) Seg Neutrophils # Lymphocytes # (Manual) Eosinophils # (Manual) PT INR D-Dimer POC ABG pH POC ABG pCO2 POC ABG pO2 ABG pO2 ABG HCO3 ABG Base Excess ABG Hemoglobin Oxyhemoglobin Sodium 135 L Potassium Chloride 91.9 L Carbon Dioxide BUN 54 H Creatinine 2.8 H Glucose 128 H POC Glucose 160 H 109 H Calcium 11.1 H Phosphorus Magnesium ALT Alkaline Phosphatase 161 H Total Creatine Kinase CK-MB (CK-2) Rel Index Troponin T Albumin 2.3 L LDL Cholesterol Direct PTH Intact Salicylates Acetaminophen Crossmatch 03/15/19 03/15/19 03/16/19 18:15 23:41 05:40 WBC RBC Hgb Hct MCH MCHC RDW Lymph % (Auto) [place] % (Auto) Eos % (Auto) Lymph # [place] # Eos # Seg Neutrophils % Seg Neuts % (Manual) Lymphocytes % (Manual) Eosinophils % (Manual) Seg Neutrophils # Lymphocytes # (Manual) Eosinophils # (Manual) PT INR D-Dimer POC ABG pH POC ABG pCO2 POC ABG pO2 ABG pO2 ABG HCO3 ABG Base Excess ABG Hemoglobin Oxyhemoglobin Sodium Potassium Chloride Carbon Dioxide BUN Creatinine Glucose POC Glucose 151 H 110 H 163 H Calcium Phosphorus Magnesium ALT Alkaline Phosphatase Total Creatine Kinase CK-MB (CK-2) Rel Index Troponin T Albumin LDL Cholesterol Direct PTH Intact Salicylates Acetaminophen Crossmatch 03/16/19 03/16/19 03/16/19 11:55 17:04 23:58 WBC RBC Hgb Hct MCH MCHC RDW Lymph % (Auto) [place] % (Auto) Eos % (Auto) Lymph # [place] # Eos # Seg Neutrophils % Seg Neuts % (Manual) Lymphocytes % (Manual) Eosinophils % (Manual) Seg Neutrophils # Lymphocytes # (Manual) Eosinophils # (Manual) PT INR D-Dimer POC ABG pH POC ABG pCO2 POC ABG pO2 ABG pO2 ABG HCO3 ABG Base Excess ABG Hemoglobin Oxyhemoglobin Sodium Potassium Chloride Carbon Dioxide BUN Creatinine Glucose POC Glucose 114 H 147 H 192 H Calcium Phosphorus Magnesium ALT Alkaline Phosphatase Total Creatine Kinase CK-MB (CK-2) Rel Index Troponin T Albumin LDL Cholesterol Direct PTH Intact Salicylates Acetaminophen Crossmatch 03/17/19 03/17/19 03/17/19 05:53 11:17 17:01 WBC RBC Hgb Hct MCH MCHC RDW Lymph % (Auto) [place] % (Auto) Eos % (Auto) Lymph # [place] # Eos # Seg Neutrophils % Seg Neuts % (Manual) Lymphocytes % (Manual) Eosinophils % (Manual) Seg Neutrophils # Lymphocytes # (Manual) Eosinophils # (Manual) PT INR D-Dimer POC ABG pH POC ABG pCO2 POC ABG pO2 ABG pO2 ABG HCO3 ABG Base Excess ABG Hemoglobin Oxyhemoglobin Sodium Potassium Chloride Carbon Dioxide BUN Creatinine Glucose POC Glucose 151 H 161 H 152 H Calcium Phosphorus Magnesium ALT Alkaline Phosphatase Total Creatine Kinase CK-MB (CK-2) Rel Index Troponin T Albumin LDL Cholesterol Direct PTH Intact Salicylates Acetaminophen Crossmatch 03/17/19 03/18/19 03/18/19 21:47 04:15 04:44 WBC RBC Hgb Hct MCH MCHC RDW Lymph % (Auto) [place] % (Auto) Eos % (Auto) Lymph # [place] # Eos # Seg Neutrophils % Seg Neuts % (Manual) Lymphocytes % (Manual) Eosinophils % (Manual) Seg Neutrophils # Lymphocytes # (Manual) Eosinophils # (Manual) PT INR D-Dimer POC ABG pH POC ABG pCO2 POC ABG pO2 ABG pO2 102.8 H ABG HCO3 28.3 H ABG Base Excess ABG Hemoglobin 10.4 L Oxyhemoglobin 94.5 L Sodium Potassium Chloride Carbon Dioxide BUN Creatinine Glucose POC Glucose 170 H 150 H Calcium Phosphorus Magnesium ALT Alkaline Phosphatase Total Creatine Kinase CK-MB (CK-2) Rel Index Troponin T Albumin LDL Cholesterol Direct PTH Intact Salicylates Acetaminophen Crossmatch 03/18/19 03/18/19 03/18/19 06:38 12:12 17:47 WBC RBC Hgb Hct MCH MCHC RDW Lymph % (Auto) [place] % (Auto) Eos % (Auto) Lymph # [place] # Eos # Seg Neutrophils % Seg Neuts % (Manual) Lymphocytes % (Manual) Eosinophils % (Manual) Seg Neutrophils # Lymphocytes # (Manual) Eosinophils # (Manual) PT INR D-Dimer POC ABG pH 7.510 H POC ABG pCO2 POC ABG pO2 164 H ABG pO2 ABG HCO3 ABG Base Excess ABG Hemoglobin Oxyhemoglobin Sodium Potassium Chloride Carbon Dioxide BUN Creatinine Glucose POC Glucose 145 H 149 H Calcium Phosphorus Magnesium ALT Alkaline Phosphatase Total Creatine Kinase CK-MB (CK-2) Rel Index Troponin T Albumin LDL Cholesterol Direct PTH Intact Salicylates Acetaminophen Crossmatch 03/18/19 03/19/19 03/19/19 23:25 01:11 04:23 WBC 15.6 H RBC 2.51 L Hgb 6.5 L Hct 21.6 L MCH 26 L MCHC 30 L RDW 19.8 H Lymph % (Auto) 6.0 L [place] % (Auto) Eos % (Auto) Lymph # 0.9 L Dav[place] # 1.0 H Eos # Seg Neutrophils % 85.5 H Seg Neuts % (Manual) Lymphocytes % (Manual) Eosinophils % (Manual) Seg Neutrophils # 13.4 H Lymphocytes # (Manual) Eosinophils # (Manual) PT INR D-Dimer POC ABG pH POC ABG pCO2 POC ABG pO2 ABG pO2 78.3 L ABG HCO3 30.7 H ABG Base Excess 5.8 H ABG Hemoglobin 5.8 L Oxyhemoglobin 94.6 L Sodium Potassium Chloride Carbon Dioxide BUN Creatinine Glucose POC Glucose 190 H Calcium Phosphorus Magnesium ALT Alkaline Phosphatase Total Creatine Kinase CK-MB (CK-2) Rel Index Troponin T Albumin LDL Cholesterol Direct PTH Intact Salicylates Acetaminophen Crossmatch 03/19/19 03/19/19 03/19/19 05:22 05:35 08:54 WBC RBC Hgb Hct MCH MCHC RDW Lymph % (Auto) [place] % (Auto) Eos % (Auto) Lymph # [place] # Eos # Seg Neutrophils % Seg Neuts % (Manual) Lymphocytes % (Manual) Eosinophils % (Manual) Seg Neutrophils # Lymphocytes # (Manual) Eosinophils # (Manual) PT INR D-Dimer POC ABG pH POC ABG pCO2 POC ABG pO2 ABG pO2 ABG HCO3 ABG Base Excess ABG Hemoglobin Oxyhemoglobin Sodium Potassium Chloride Carbon Dioxide BUN Creatinine Glucose POC Glucose 167 H Calcium Phosphorus Magnesium ALT Alkaline Phosphatase Total Creatine Kinase CK-MB (CK-2) Rel Index Troponin T Albumin LDL Cholesterol Direct PTH Intact Salicylates Acetaminophen Crossmatch See Detail See Detail 03/19/19 03/19/19 03/19/19 12:36 17:02 23:25 WBC RBC Hgb Hct MCH MCHC RDW Lymph % (Auto) [place] % (Auto) Eos % (Auto) Lymph # [place] # Eos # Seg Neutrophils % Seg Neuts % (Manual) Lymphocytes % (Manual) Eosinophils % (Manual) Seg Neutrophils # Lymphocytes # (Manual) Eosinophils # (Manual) PT INR D-Dimer POC ABG pH POC ABG pCO2 POC ABG pO2 ABG pO2 ABG HCO3 ABG Base Excess ABG Hemoglobin Oxyhemoglobin Sodium Potassium Chloride Carbon Dioxide BUN Creatinine Glucose POC Glucose 167 H 135 H 136 H Calcium Phosphorus Magnesium ALT Alkaline Phosphatase Total Creatine Kinase CK-MB (CK-2) Rel Index Troponin T Albumin LDL Cholesterol Direct PTH Intact Salicylates Acetaminophen Crossmatch 03/20/19 03/20/19 03/20/19 05:38 08:40 08:40 WBC RBC 2.61 L Hgb 7.1 L Hct 22.0 L MCH 27 L MCHC RDW 19.6 H Lymph % (Auto) 8.2 L [place] % (Auto) 8.3 H Eos % (Auto) 5.7 H Lymph # 0.8 L Davison # Eos # 0.5 H Seg Neutrophils % 77.3 H Seg Neuts % (Manual) Lymphocytes % (Manual) Eosinophils % (Manual) Seg Neutrophils # Lymphocytes # (Manual) Eosinophils # (Manual) PT INR D-Dimer POC ABG pH POC ABG pCO2 POC ABG pO2 ABG pO2 ABG HCO3 ABG Base Excess ABG Hemoglobin Oxyhemoglobin Sodium Potassium Chloride 95.9 L Carbon Dioxide BUN 69 H Creatinine 2.8 H Glucose 115 H POC Glucose 134 H Calcium 10.5 H Phosphorus Magnesium ALT Alkaline Phosphatase Total Creatine Kinase CK-MB (CK-2) Rel Index Troponin T Albumin LDL Cholesterol Direct PTH Intact Salicylates Acetaminophen Crossmatch 03/20/19 03/20/19 03/20/19 12:13 18:04 23:49 WBC RBC Hgb Hct MCH MCHC RDW Lymph % (Auto) [place] % (Auto) Eos % (Auto) Lymph # [place] # Eos # Seg Neutrophils % Seg Neuts % (Manual) Lymphocytes % (Manual) Eosinophils % (Manual) Seg Neutrophils # Lymphocytes # (Manual) Eosinophils # (Manual) PT INR D-Dimer POC ABG pH POC ABG pCO2 POC ABG pO2 ABG pO2 ABG HCO3 ABG Base Excess ABG Hemoglobin Oxyhemoglobin Sodium Potassium Chloride Carbon Dioxide BUN Creatinine Glucose POC Glucose 144 H 165 H 172 H Calcium Phosphorus Magnesium ALT Alkaline Phosphatase Total Creatine Kinase CK-MB (CK-2) Rel Index Troponin T Albumin LDL Cholesterol Direct PTH Intact Salicylates Acetaminophen Crossmatch 03/21/19 03/21/19 03/21/19 05:00 06:29 06:30 WBC RBC 2.72 L Hgb 7.4 L Hct 22.9 L MCH 27 L MCHC RDW 19.4 H Lymph % (Auto) [place] % (Auto) Eos % (Auto) Lymph # [place] # Eos # Seg Neutrophils % Seg Neuts % (Manual) 81.0 H Lymphocytes % (Manual) 8.0 L Eosinophils % (Manual) 8.0 H Seg Neutrophils # Lymphocytes # (Manual) 0.7 L Eosinophils # (Manual) 0.7 H PT INR D-Dimer POC ABG pH POC ABG pCO2 POC ABG pO2 ABG pO2 ABG HCO3 ABG Base Excess ABG Hemoglobin Oxyhemoglobin Sodium Potassium Chloride Carbon Dioxide 33 H BUN 43 H Creatinine 1.7 H Glucose 145 H POC Glucose 156 H Calcium Phosphorus Magnesium ALT Alkaline Phosphatase 212 H Total Creatine Kinase CK-MB (CK-2) Rel Index Troponin T Albumin 2.2 L LDL Cholesterol Direct PTH Intact Salicylates Acetaminophen Crossmatch 03/21/19 03/21/1903/22/19 12:02 18:07 00:21 WBC RBC Hgb Hct MCH MCHC RDW Lymph % (Auto) [place] % (Auto) Eos % (Auto) Lymph # [place] # Eos # Seg Neutrophils % Seg Neuts % (Manual) Lymphocytes % (Manual) Eosinophils % (Manual) Seg Neutrophils # Lymphocytes # (Manual) Eosinophils # (Manual) PT INR D-Dimer POC ABG pH POC ABG pCO2 POC ABG pO2 ABG pO2 ABG HCO3 ABG Base Excess ABG Hemoglobin Oxyhemoglobin Sodium Potassium Chloride Carbon Dioxide BUN Creatinine Glucose POC Glucose 163 H 144 H 153 H Calcium Phosphorus Magnesium ALT Alkaline Phosphatase Total Creatine Kinase CK-MB (CK-2) Rel Index Troponin T Albumin LDL Cholesterol Direct PTH Intact Salicylates Acetaminophen Crossmatch 03/22/19 03/22/19 03/22/19 05:23 05:23 05:31 WBC RBC 2.58 L Hgb 7.1 L Hct 21.8 L MCH 27 L MCHC RDW 19.2 H Lymph % (Auto) [place] % (Auto) Eos % (Auto) Lymph # [place] # Eos # Seg Neutrophils % Seg Neuts % (Manual) Lymphocytes % (Manual) Eosinophils % (Manual) Seg Neutrophils # Lymphocytes # (Manual) Eosinophils # (Manual) PT INR D-Dimer POC ABG pH POC ABG pCO2 POC ABG pO2 ABG pO2 ABG HCO3 ABG Base Excess ABG Hemoglobin Oxyhemoglobin Sodium 147 H Potassium Chloride Carbon Dioxide BUN 68 H Creatinine 2.5 H Glucose POC Glucose 116 H Calcium 10.3 H Phosphorus Magnesium ALT Alkaline Phosphatase Total Creatine Kinase CK-MB (CK-2) Rel Index Troponin T Albumin LDL Cholesterol Direct PTH Intact Salicylates Acetaminophen Crossmatch 03/22/19 03/22/19 03/22/19 08:48 12:37 17:35 WBC RBC Hgb Hct MCH MCHC RDW Lymph % (Auto) [place] % (Auto) Eos % (Auto) Lymph # [place] # Eos # Seg Neutrophils % Seg Neuts % (Manual) Lymphocytes % (Manual) Eosinophils % (Manual) Seg Neutrophils # Lymphocytes # (Manual) Eosinophils # (Manual) PT INR D-Dimer POC ABG pH POC ABG pCO2 POC ABG pO2 ABG pO2 ABG HCO3 ABG Base Excess ABG Hemoglobin Oxyhemoglobin Sodium Potassium Chloride Carbon Dioxide BUN Creatinine Glucose POC Glucose 143 H 155 H Calcium Phosphorus Magnesium ALT Alkaline Phosphatase Total Creatine Kinase CK-MB (CK-2) Rel Index Troponin T Albumin LDL Cholesterol Direct PTH Intact Salicylates Acetaminophen Crossmatch See Detail 03/23/19 03/23/19 03/23/19 00:07 04:00 04:00 WBC 11.2 H RBC 2.32 L Hgb 6.4 L Hct 19.7 L* MCH MCHC RDW 19.4 H Lymph % (Auto) [place] % (Auto) Eos % (Auto) Lymph # [place] # Eos # Seg Neutrophils % Seg Neuts % (Manual) Lymphocytes % (Manual) Eosinophils % (Manual) Seg Neutrophils # Lymphocytes # (Manual) Eosinophils # (Manual) PT INR D-Dimer POC ABG pH POC ABG pCO2 POC ABG pO2 ABG pO2 ABG HCO3 ABG Base Excess ABG Hemoglobin Oxyhemoglobin Sodium 147 H Potassium 5.2 H Chloride Carbon Dioxide BUN 86 H Creatinine 3.2 H Glucose 128 H POC Glucose 135 H Calcium 10.3 H Phosphorus Magnesium ALT Alkaline Phosphatase Total Creatine Kinase CK-MB (CK-2) Rel Index Troponin T Albumin LDL Cholesterol Direct PTH Intact Salicylates Acetaminophen Crossmatch 03/23/19 03/23/19 03/23/19 05:21 11:36 11:36 WBC RBC Hgb 7.9 L Hct 25.0 L MCH MCHC RDW Lymph % (Auto) [place] % (Auto) Eos % (Auto) Lymph # [place] # Eos # Seg Neutrophils % Seg Neuts % (Manual) Lymphocytes % (Manual) Eosinophils % (Manual) Seg Neutrophils # Lymphocytes # (Manual) Eosinophils # (Manual) PT INR D-Dimer POC ABG pH POC ABG pCO2 POC ABG pO2 ABG pO2 ABG HCO3 ABG Base Excess ABG Hemoglobin Oxyhemoglobin Sodium Potassium Chloride Carbon Dioxide BUN Creatinine Glucose POC Glucose 132 H 147 H Calcium Phosphorus Magnesium ALT Alkaline Phosphatase Total Creatine Kinase CK-MB (CK-2) Rel Index Troponin T Albumin LDL Cholesterol Direct PTH Intact Salicylates Acetaminophen Crossmatch 03/23/19 03/24/19 03/24/19 17:31 01:22 04:20 WBC 12.2 H RBC 3.05 L Hgb 8.3 L Hct 25.9 L MCH 27 L MCHC RDW 18.7 H Lymph % (Auto) [place] % (Auto) Eos % (Auto) Lymph # [place] # Eos # Seg Neutrophils % Seg Neuts % (Manual) Lymphocytes % (Manual) Eosinophils % (Manual) Seg Neutrophils # Lymphocytes # (Manual) Eosinophils # (Manual) PT INR D-Dimer POC ABG pH POC ABG pCO2 POC ABG pO2 ABG pO2 ABG HCO3 ABG Base Excess ABG Hemoglobin Oxyhemoglobin Sodium Potassium Chloride Carbon Dioxide BUN Creatinine Glucose POC Glucose 182 H 113 H Calcium Phosphorus Magnesium ALT Alkaline Phosphatase Total Creatine Kinase CK-MB (CK-2) Rel Index Troponin T Albumin LDL Cholesterol Direct PTH Intact Salicylates Acetaminophen Crossmatch 03/24/19 03/24/19 03/24/19 04:20 11:59 18:14 WBC RBC Hgb Hct MCH MCHC RDW Lymph % (Auto) [place] % (Auto) Eos % (Auto) Lymph # [place] # Eos # Seg Neutrophils % Seg Neuts % (Manual) Lymphocytes % (Manual) Eosinophils % (Manual) Seg Neutrophils # Lymphocytes # (Manual) Eosinophils # (Manual) PT INR D-Dimer POC ABG pH POC ABG pCO2 POC ABG pO2 ABG pO2 ABG HCO3 ABG Base Excess ABG Hemoglobin Oxyhemoglobin Sodium Potassium Chloride 94.8 L Carbon Dioxide 32 H BUN 53 H Creatinine 2.3 H Glucose POC Glucose 163 H 134 H Calcium Phosphorus Magnesium ALT Alkaline Phosphatase Total Creatine Kinase CK-MB (CK-2) Rel Index Troponin T Albumin LDL Cholesterol Direct PTH Intact Salicylates Acetaminophen Crossmatch 03/24/19 03/25/19 03/25/19 23:15 05:52 12:02 WBC RBC Hgb Hct MCH MCHC RDW Lymph % (Auto) [place] % (Auto) Eos % (Auto) Lymph # [place] # Eos # Seg Neutrophils % Seg Neuts % (Manual) Lymphocytes % (Manual) Eosinophils % (Manual) Seg Neutrophils # Lymphocytes # (Manual) Eosinophils # (Manual) PT INR D-Dimer POC ABG pH POC ABG pCO2 POC ABG pO2 ABG pO2 ABG HCO3 ABG Base Excess ABG Hemoglobin Oxyhemoglobin Sodium Potassium Chloride Carbon Dioxide BUN Creatinine Glucose POC Glucose 129 H 123 H 125 H Calcium Phosphorus Magnesium ALT Alkaline Phosphatase Total Creatine Kinase CK-MB (CK-2) Rel Index Troponin T Albumin LDL Cholesterol Direct PTH Intact Salicylates Acetaminophen Crossmatch 03/25/19 03/26/19 03/26/19 17:27 00:30 05:35 WBC RBC 3.01 L Hgb 8.1 L Hct 25.7 L MCH 27 L MCHC RDW 19.2 H Lymph % (Auto) 11.4 L [place] % (Auto) Eos % (Auto) 8.0 H Lymph # 1.0 L Davison # Eos # 0.7 H Seg Neutrophils % 73.9 H Seg Neuts % (Manual) Lymphocytes % (Manual) Eosinophils % (Manual) Seg Neutrophils # Lymphocytes # (Manual) Eosinophils # (Manual) PT INR D-Dimer POC ABG pH POC ABG pCO2 POC ABG pO2 ABG pO2 ABG HCO3 ABG Base Excess ABG Hemoglobin Oxyhemoglobin Sodium Potassium Chloride Carbon Dioxide BUN Creatinine Glucose POC Glucose 130 H 129 H Calcium Phosphorus Magnesium ALT Alkaline Phosphatase Total Creatine Kinase CK-MB (CK-2) Rel Index Troponin T Albumin LDL Cholesterol Direct PTH Intact Salicylates Acetaminophen Crossmatch 03/26/19 03/26/19 03/26/19 05:35 05:45 12:16 WBC RBC Hgb Hct MCH MCHC RDW Lymph % (Auto) [place] % (Auto) Eos % (Auto) Lymph # [place] # Eos # Seg Neutrophils % Seg Neuts % (Manual) Lymphocytes % (Manual) Eosinophils % (Manual) Seg Neutrophils # Lymphocytes # (Manual) Eosinophils # (Manual) PT INR D-Dimer POC ABG pH POC ABG pCO2 POC ABG pO2 ABG pO2 ABG HCO3 ABG Base Excess ABG Hemoglobin Oxyhemoglobin Sodium Potassium Chloride 94.9 L Carbon Dioxide 31 H BUN 44 H Creatinine 2.0 H Glucose POC Glucose 118 H 107 H Calcium Phosphorus Magnesium ALT Alkaline Phosphatase Total Creatine Kinase CK-MB (CK-2) Rel Index Troponin T Albumin LDL Cholesterol Direct PTH Intact Salicylates Acetaminophen Crossmatch 03/26/19 03/27/19 03/27/19 17:56 00:36 05:37 WBC RBC Hgb Hct MCH MCHC RDW Lymph % (Auto) [place] % (Auto) Eos % (Auto) Lymph # [place] # Eos # Seg Neutrophils % Seg Neuts % (Manual) Lymphocytes % (Manual) Eosinophils % (Manual) Seg Neutrophils # Lymphocytes # (Manual) Eosinophils # (Manual) PT INR D-Dimer POC ABG pH POC ABG pCO2 POC ABG pO2 ABG pO2 ABG HCO3 ABG Base Excess ABG Hemoglobin Oxyhemoglobin Sodium Potassium Chloride Carbon Dioxide BUN Creatinine Glucose POC Glucose 107 H 110 H 122 H Calcium Phosphorus Magnesium ALT Alkaline Phosphatase Total Creatine Kinase CK-MB (CK-2) Rel Index Troponin T Albumin LDL Cholesterol Direct PTH Intact Salicylates Acetaminophen Crossmatch 03/27/19 03/27/19 03/28/19 11:22 18:00 05:17 WBC RBC Hgb Hct MCH MCHC RDW Lymph % (Auto) [place] % (Auto) Eos % (Auto) Lymph # [place] # Eos # Seg Neutrophils % Seg Neuts % (Manual) Lymphocytes % (Manual) Eosinophils % (Manual) Seg Neutrophils # Lymphocytes # (Manual) Eosinophils # (Manual) PT INR D-Dimer POC ABG pH POC ABG pCO2 POC ABG pO2 ABG pO2 ABG HCO3 ABG Base Excess ABG Hemoglobin Oxyhemoglobin Sodium Potassium Chloride Carbon Dioxide BUN Creatinine Glucose POC Glucose 120 H 111 H 107 H Calcium Phosphorus Magnesium ALT Alkaline Phosphatase Total Creatine Kinase CK-MB (CK-2) Rel Index Troponin T Albumin LDL Cholesterol Direct PTH Intact Salicylates Acetaminophen Crossmatch 03/28/19 03/28/19 03/29/19 12:27 18:08 05:47 WBC RBC Hgb Hct MCH MCHC RDW Lymph % (Auto) [place] % (Auto) Eos % (Auto) Lymph # [place] # Eos # Seg Neutrophils % Seg Neuts % (Manual) Lymphocytes % (Manual) Eosinophils % (Manual) Seg Neutrophils # Lymphocytes # (Manual) Eosinophils # (Manual) PT INR D-Dimer POC ABG pH POC ABG pCO2 POC ABG pO2 ABG pO2 ABG HCO3 ABG Base Excess ABG Hemoglobin Oxyhemoglobin Sodium Potassium Chloride Carbon Dioxide BUN Creatinine Glucose POC Glucose 114 H 121 H 112 H Calcium Phosphorus Magnesium ALT Alkaline Phosphatase Total Creatine Kinase CK-MB (CK-2) Rel Index Troponin T Albumin LDL Cholesterol Direct PTH Intact Salicylates Acetaminophen Crossmatch 03/29/19 03/29/19 03/30/19 12:14 18:08 00:31 WBC RBC Hgb Hct MCH MCHC RDW Lymph % (Auto) [place] % (Auto) Eos % (Auto) Lymph # [place] # Eos # Seg Neutrophils % Seg Neuts % (Manual) Lymphocytes % (Manual) Eosinophils % (Manual) Seg Neutrophils # Lymphocytes # (Manual) Eosinophils # (Manual) PT INR D-Dimer POC ABG pH POC ABG pCO2 POC ABG pO2 ABG pO2 ABG HCO3 ABG Base Excess ABG Hemoglobin Oxyhemoglobin Sodium Potassium Chloride Carbon Dioxide BUN Creatinine Glucose POC Glucose 117 H 140 H 114 H Calcium Phosphorus Magnesium ALT Alkaline Phosphatase Total Creatine Kinase CK-MB (CK-2) Rel Index Troponin T Albumin LDL Cholesterol Direct PTH Intact Salicylates Acetaminophen Crossmatch 03/30/19 03/30/19 03/30/19 10:13 10:13 23:53 WBC RBC 2.81 L Hgb 7.7 L Hct 24.3 L MCH 27 L MCHC RDW 19.0 H Lymph % (Auto) 12.2 L [place] % (Auto) Eos % (Auto) 7.9 H Lymph # 1.0 L [place] # Eos # 0.6 H Seg Neutrophils % 72.3 H Seg Neuts % (Manual) Lymphocytes % (Manual) Eosinophils % (Manual) Seg Neutrophils # Lymphocytes # (Manual) Eosinophils # (Manual) PT INR D-Dimer POC ABG pH POC ABG pCO2 POC ABG pO2 ABG pO2 ABG HCO3 ABG Base Excess ABG Hemoglobin Oxyhemoglobin Sodium Potassium 5.1 H Chloride 96.5 L Carbon Dioxide BUN 73 H Creatinine 3.9 H D Glucose POC Glucose 114 H Calcium 10.3 H Phosphorus 6.30 H Magnesium 2.70 H ALT Alkaline Phosphatase 185 H Total Creatine Kinase CK-MB (CK-2) Rel Index Troponin T Albumin 2.6 L LDL Cholesterol Direct PTH Intact Salicylates Acetaminophen Crossmatch 03/31/19 03/31/19 03/31/19 05:45 10:26 10:26 WBC RBC 3.01 L Hgb 8.2 L Hct 26.4 L MCH 27 L MCHC 31 L RDW 20.3 H Lymph % (Auto) 13.3 L [place] % (Auto) Eos % (Auto) 7.2 H Lymph # 1.1 L [place] # Eos # 0.6 H Seg Neutrophils % 72.1 H Seg Neuts % (Manual) Lymphocytes % (Manual) Eosinophils % (Manual) Seg Neutrophils # Lymphocytes # (Manual) Eosinophils # (Manual) PT INR D-Dimer POC ABG pH POC ABG pCO2 POC ABG pO2 ABG pO2 ABG HCO3 ABG Base Excess ABG Hemoglobin Oxyhemoglobin Sodium Potassium Chloride 96.9 L Carbon Dioxide 33 H BUN 37 H Creatinine 2.4 H Glucose POC Glucose 108 H Calcium 10.3 H Phosphorus Magnesium ALT Alkaline Phosphatase Total Creatine Kinase CK-MB (CK-2) Rel Index Troponin T Albumin LDL Cholesterol Direct PTH Intact Salicylates Acetaminophen Crossmatch 03/31/19 04/01/19 04/01/19 12:38 05:48 12:06 WBC RBC Hgb Hct MCH MCHC RDW Lymph % (Auto) [place] % (Auto) Eos % (Auto) Lymph # [place] # Eos # Seg Neutrophils % Seg Neuts % (Manual) Lymphocytes % (Manual) Eosinophils % (Manual) Seg Neutrophils # Lymphocytes # (Manual) Eosinophils # (Manual) PT INR D-Dimer POC ABG pH POC ABG pCO2 POC ABG pO2 ABG pO2 ABG HCO3 ABG Base Excess ABG Hemoglobin Oxyhemoglobin Sodium Potassium Chloride Carbon Dioxide BUN Creatinine Glucose POC Glucose 108 H 114 H 111 H Calcium Phosphorus Magnesium ALT Alkaline Phosphatase Total Creatine Kinase CK-MB (CK-2) Rel Index Troponin T Albumin LDL Cholesterol Direct PTH Intact Salicylates Acetaminophen Crossmatch 04/01/19 04/02/19 04/04/19 18:24 00:36 23:55 WBC RBC Hgb Hct MCH MCHC RDW Lymph % (Auto) [place] % (Auto) Eos % (Auto) Lymph # [place] # Eos # Seg Neutrophils % Seg Neuts % (Manual) Lymphocytes % (Manual) Eosinophils % (Manual) Seg Neutrophils # Lymphocytes # (Manual) Eosinophils # (Manual) PT INR D-Dimer POC ABG pH POC ABG pCO2 POC ABG pO2 ABG pO2 ABG HCO3 ABG Base Excess ABG Hemoglobin Oxyhemoglobin Sodium Potassium Chloride Carbon Dioxide BUN Creatinine Glucose POC Glucose 113 H 117 H 109 H Calcium Phosphorus Magnesium ALT Alkaline Phosphatase Total Creatine Kinase CK-MB (CK-2) Rel Index Troponin T Albumin LDL Cholesterol Direct PTH Intact Salicylates Acetaminophen Crossmatch 04/06/19 04/06/19 04/06/19 00:11 06:02 23:30 WBC RBC Hgb Hct MCH MCHC RDW Lymph % (Auto) Davison % (Auto) Eos % (Auto) Lymph # Davison # Eos # Seg Neutrophils % Seg Neuts % (Manual) Lymphocytes % (Manual) Eosinophils % (Manual) Seg Neutrophils # Lymphocytes # (Manual) Eosinophils # (Manual) PT INR D-Dimer POC ABG pH POC ABG pCO2 POC ABG pO2 ABG pO2 ABG HCO3 ABG Base Excess ABG Hemoglobin Oxyhemoglobin Sodium Potassium Chloride Carbon Dioxide BUN Creatinine Glucose POC Glucose 116 H 112 H 112 H Calcium Phosphorus Magnesium ALT Alkaline Phosphatase Total Creatine Kinase CK-MB (CK-2) Rel Index Troponin T Albumin LDL Cholesterol Direct PTH Intact Salicylates Acetaminophen Crossmatch 04/08/19 04/08/19 04/08/19 02:23 06:19 13:01 WBC RBC Hgb Hct MCH MCHC RDW Lymph % (Auto) Davison % (Auto) Eos % (Auto) Lymph # Davison # Eos # Seg Neutrophils % Seg Neuts % (Manual) Lymphocytes % (Manual) Eosinophils % (Manual) Seg Neutrophils # Lymphocytes # (Manual) Eosinophils # (Manual) PT INR D-Dimer POC ABG pH POC ABG pCO2 POC ABG pO2 ABG pO2 ABG HCO3 ABG Base Excess ABG Hemoglobin Oxyhemoglobin Sodium Potassium Chloride Carbon Dioxide BUN Creatinine Glucose POC Glucose 144 H 126 H 118 H Calcium Phosphorus Magnesium ALT Alkaline Phosphatase Total Creatine Kinase CK-MB (CK-2) Rel Index Troponin T Albumin LDL Cholesterol Direct PTH Intact Salicylates Acetaminophen Crossmatch 04/08/19 04/09/19 04/10/19 23:28 05:52 06:34 WBC RBC Hgb Hct MCH MCHC RDW Lymph % (Auto) Davison % (Auto) Eos % (Auto) Lymph # Davison # Eos # Seg Neutrophils % Seg Neuts % (Manual) Lymphocytes % (Manual) Eosinophils % (Manual) Seg Neutrophils # Lymphocytes # (Manual) Eosinophils # (Manual) PT INR D-Dimer POC ABG pH POC ABG pCO2 POC ABG pO2 ABG pO2 ABG HCO3 ABG Base Excess ABG Hemoglobin Oxyhemoglobin Sodium Potassium Chloride Carbon Dioxide BUN Creatinine Glucose POC Glucose 119 H 116 H 114 H Calcium Phosphorus Magnesium ALT Alkaline Phosphatase Total Creatine Kinase CK-MB (CK-2) Rel Index Troponin T Albumin LDL Cholesterol Direct PTH Intact Salicylates Acetaminophen Crossmatch 04/10/19 04/10/19 04/11/19 12:34 18:59 00:36 WBC RBC Hgb Hct MCH MCHC RDW Lymph % (Auto) Davison % (Auto) Eos % (Auto) Lymph # Davison # Eos # Seg Neutrophils % Seg Neuts % (Manual) Lymphocytes % (Manual) Eosinophils % (Manual) Seg Neutrophils # Lymphocytes # (Manual) Eosinophils # (Manual) PT INR D-Dimer POC ABG pH POC ABG pCO2 POC ABG pO2 ABG pO2 ABG HCO3 ABG Base Excess ABG Hemoglobin Oxyhemoglobin Sodium Potassium Chloride Carbon Dioxide BUN Creatinine Glucose POC Glucose 112 H 109 H 124 H Calcium Phosphorus Magnesium ALT Alkaline Phosphatase Total Creatine Kinase CK-MB (CK-2) Rel Index Troponin T Albumin LDL Cholesterol Direct PTH Intact Salicylates Acetaminophen Crossmatch 04/11/19 04/11/19 04/12/19 08:01 17:25 02:18 WBC RBC Hgb Hct MCH MCHC RDW Lymph % (Auto) Davison % (Auto) Eos % (Auto) Lymph # Davison # Eos # Seg Neutrophils % Seg Neuts % (Manual) Lymphocytes % (Manual) Eosinophils % (Manual) Seg Neutrophils # Lymphocytes # (Manual) Eosinophils # (Manual) PT INR D-Dimer POC ABG pH POC ABG pCO2 POC ABG pO2 ABG pO2 ABG HCO3 ABG Base Excess ABG Hemoglobin Oxyhemoglobin Sodium Potassium Chloride Carbon Dioxide BUN Creatinine Glucose POC Glucose 118 H 106 H 125 H Calcium Phosphorus Magnesium ALT Alkaline Phosphatase Total Creatine Kinase CK-MB (CK-2) Rel Index Troponin T Albumin LDL Cholesterol Direct PTH Intact Salicylates Acetaminophen Crossmatch 04/12/19 04/12/19 04/12/19 06:24 12:22 17:13 WBC RBC Hgb Hct MCH MCHC RDW Lymph % (Auto) Davison % (Auto) Eos % (Auto) Lymph # Davison # Eos # Seg Neutrophils % Seg Neuts % (Manual) Lymphocytes % (Manual) Eosinophils % (Manual) Seg Neutrophils # Lymphocytes # (Manual) Eosinophils # (Manual) PT INR D-Dimer POC ABG pH POC ABG pCO2 POC ABG pO2 ABG pO2 ABG HCO3 ABG Base Excess ABG Hemoglobin Oxyhemoglobin Sodium Potassium Chloride Carbon Dioxide BUN Creatinine Glucose POC Glucose 128 H 114 H 110 H Calcium Phosphorus Magnesium ALT Alkaline Phosphatase Total Creatine Kinase CK-MB (CK-2) Rel Index Troponin T Albumin LDL Cholesterol Direct PTH Intact Salicylates Acetaminophen Crossmatch 04/13/19 04/13/19 04/13/19 06:59 07:31 07:31 WBC RBC 3.34 L Hgb 8.9 L Hct 28.6 L MCH 27 L MCHC 31 L RDW 19.6 H Lymph % (Auto) Davison % (Auto) Eos % (Auto) Lymph # Davison # Eos # Seg Neutrophils % Seg Neuts % (Manual) Lymphocytes % (Manual) Eosinophils % (Manual) Seg Neutrophils # Lymphocytes # (Manual) Eosinophils # (Manual) PT INR D-Dimer POC ABG pH POC ABG pCO2 POC ABG pO2 ABG pO2 ABG HCO3 ABG Base Excess ABG Hemoglobin Oxyhemoglobin Sodium Potassium Chloride 96.4 L Carbon Dioxide 33 H BUN 66 H Creatinine 4.5 H Glucose 103 H POC Glucose 107 H Calcium Phosphorus Magnesium ALT Alkaline Phosphatase Total Creatine Kinase CK-MB (CK-2) Rel Index Troponin T Albumin LDL Cholesterol Direct PTH Intact Salicylates Acetaminophen Crossmatch 04/13/19 04/14/19 23:43 05:50 WBC RBC Hgb Hct MCH MCHC RDW Lymph % (Auto) Davison % (Auto) Eos % (Auto) Lymph # Davison # Eos # Seg Neutrophils % Seg Neuts % (Manual) Lymphocytes % (Manual) Eosinophils % (Manual) Seg Neutrophils # Lymphocytes # (Manual) Eosinophils # (Manual) PT INR D-Dimer POC ABG pH POC ABG pCO2 POC ABG pO2 ABG pO2 ABG HCO3 ABG Base Excess ABG Hemoglobin Oxyhemoglobin Sodium Potassium Chloride Carbon Dioxide BUN Creatinine Glucose POC Glucose 119 H 112 H Calcium Phosphorus Magnesium ALT Alkaline Phosphatase Total Creatine Kinase CK-MB (CK-2) Rel Index Troponin T Albumin LDL Cholesterol Direct PTH Intact Salicylates Acetaminophen Crossmatch
--- NOTE | 2019-04-14 16:35 | Progress Note ---
Assessment and Plan Assessment and plan: Day 52, which is my first day caring for patient on this admission. Patient is a 63-year-old -[place] man from [facility] with a plethora of co-morbidities including blindness, CVA, CHF, PPM/ICD, loop recorder since 2012 that is MRI compatible, IDDM type 2, sepsis left foot ulcer, afib, ESRD with complications on HD TTS, hypertension, AOCD and GERD who presented to the ED with hypotensive after intubation in the emergency room. Still intubated, diagnosed with fluid overload, pleural effusion. Patient has had recurrent admission in the hospital for similar reason and was recently discharged from the hospital following treatment of Severe Sepsis due to Necrotizing Unstagable sacral decubitus ulcer with ostemomylitis, expected to complete abx on discharge till 02/16/19. Trach and peg done and LTAC transfer with anticipated longer weaning process and wound care management. HR control improved with change in BB. Acute respiratory failure on mechanical ventilator >96 hrs - Currently on trach placed on 03/03 Pulm consult appreciated weaning trial VAP BUNDLE ASPIRATION BUNDLE Continue T-piece Finished therapy for Acinetobacter Acute pulmonary edema, fluid overload on CXR repeat xray intermittently Dialysis Necrotizing Unstagable sacral decubitus ulcer with ostemomyelitis Wound care, Dilated CMP Cardiomyiopathy EF 35-40% Continue diuresis PPM/ICD Acute encephalopathy, probably metabolic or toxic Continues on Mechanical ventilator. ESRD on hemodialysis nephrology following Vascular eval. done re: LUE AV graft, see note Bilateral pleural effusions Anticipate improvement with Permanent atrial fibrillation and flutter Not on anticoagulation because of anemia thrombocytopenia Change noted to BB agent to IV. 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 -Pt is s/p x1 DDVAP RUL atelectasis, nebs as needed DVT prophylaxis Lovenox DNR poor prognosis Awaiting on placement History Interval history: Patient was seen and examined. Follow-up on current diagnosis. No overnight events reported to me. Patient is mainly nonverbal. Imaging, nursing note, chart, labs and old chart reviewed. Hospitalist Physical - Physical exam Narrative exam: Gen: severely disable, nad, awake alert x 1 HEENT: NCAT, EOMI, PERRL, OP Clear Neck: supple, trach CVS/Heart: irreg irregular, normal S1S2, pulses present bilaterally Chest/Lungs: diminished bs ymmetrical chest expansion, good air entry bilaterally GI/Abdomen:peg, colostomy present, good bowel sounds, no guarding or rebound /Bladder: no suprapubic tenderness, no CVA or paraspinal tenderness Extermity/Skin: no c/c/e, no obvious rash MSK: no FROM x 4 Neuro: CN 2-12 grossly intact except vision, no new focal deficits Psych: calm - Constitutional Vitals: Temp Pulse Resp BP Pulse Ox 97.9 F 88 18 127/56 100 04/14/19 12:58 04/14/19 14:08 04/14/19 14:08 04/14/19 12:58 04/14/19 14:10 General appearance: Present: no acute distress, well-nourished Results - Labs CBC & Chem 7: 04/13/19 07:31 04/13/19 07:31 Labs: Laboratory Last Values WBC 6.9 K/mm3 (4.5-11.0) 04/13/19 07:31 RBC 3.34 M/mm3 (3.65-5.03) L 04/13/19 07:31 Hgb 8.9 gm/dl (11.8-15.2) L 04/13/19 07:31 Hct 28.6 % (35.5-45.6) L 04/13/19 07:31 MCV 86 fl (84-94) 04/13/19 07:31 MCH 27 pg (28-32) L 04/13/19 07:31 MCHC 31 % (32-34) L 04/13/19 07:31 RDW 19.6 % (13.2-15.2) H 04/13/19 07:31 Plt Count 319 K/mm3 (140-440) 04/13/19 07:31 Lymph % (Auto) 13.3 % (13.4-35.0) L 03/31/19 10:26 Wilkin % (Auto) 6.5 % (0.0-7.3) 03/31/19 10: Eos % (Auto) 7.2 % (0.0-4.3) H 03/31/19 10: Baso % (Auto) 0.9 % (0.0-1.8) 03/31/19 10: Lymph # 1.1 K/mm3 (1.2-5.4) L 03/31/19 10: Wilkin # 0.5 K/mm3 (0.0-0.8) 03/31/19 10: Eos # 0.6 K/mm3 (0.0-0.4) H 03/31/19 10: Baso # 0.1 K/mm3 (0.0-0.1) 03/31/19 10:26 Add Manual Diff Complete 03/21/19 06:30 Total Counted 100 03/21/19 06:30 Seg Neutrophils % 72.1 % (40.0-70.0) H 03/31/19 10:26 Seg Neuts % (Manual) 81.0 % (40.0-70.0) H 03/21/19 06:30 0 % 03/21/19 06:30 8.0 % (13.4-35.0) L 03/21/19 06:30 Reactive Lymphs % (Man) 0 % 03/21/19 06:30 1.0 % (0.0-7.3) 03/21/19 06:30 8.0 % (0.0-4.3) H 03/21/19 06:30 1.0 % (0.0-1.8) 03/21/19 06:30 1.0 % 03/21/19 06:30 0 % 03/21/19 06:30 0 % 03/21/19 06:30 0 % 03/21/19 06:30 Nucleated RBC % Not Reportable 03/21/19 06:30 Seg Neutrophils # 6.0 K/mm3 (1.8-7.7) 03/31/19 10: Seg Neutrophils # Man 6.7 K/mm3 (1.8-7.7) 03/21/19 06:30 Band Neutrophils # 0.0 K/mm3 03/21/19 06:30 0.7 K/mm3 (1.2-5.4) L 03/21/19 06:30 Abs React Lymphs (Man) 0.0 K/mm3 03/21/19 06:30 0.1 K/mm3 (0.0-0.8) 03/21/19 06:30 0.7 K/mm3 (0.0-0.4) H 03/21/19 06:30 0.1 K/mm3 (0.0-0.1) 03/21/19 06:30 0.1 K/mm3 03/21/19 06:30 0.0 K/mm3 03/21/19 06:30 0.0 K/mm3 03/21/19 06:30 Blast Cells # 0.0 K/mm3 03/21/19 06:30 WBC Morphology Not Reportable 03/21/19 06:30 Hypersegmented Neuts Not Reportable 03/21/19 06:30 Hyposegmented Neuts Not Reportable 03/21/19 06:30 Hypogranular Neuts Not Reportable 03/21/19 06:30 Not Reportable 03/21/19 06:30 Not Reportable 03/21/19 06:30 Not Reportable 03/21/19 06:30 Not Reportable 03/21/19 06:30 Not Reportable 03/21/19 06:30 Not Reportable 03/21/19 06:30 Consistent w auto 03/21/19 06:30 Not Reportable 03/21/19 06:30 Plt Clumps, EDTA Not Reportable 03/21/19 06:30 Not Reportable 03/21/19 06:30 Not Reportable 03/21/19 06:30 Not Reportable 03/21/19 06:30 Plt Morphology Comment Not Reportable 03/21/19 06:30 RBC Morphology Not Reportable 03/21/19 06:30 Dimorphic RBCs Not Reportable 03/21/19 06:30 Not Reportable 03/21/19 06:30 Few 03/21/19 06:30 Few 03/21/19 06:30 Few 03/21/19 06:30 Not Reportable 03/21/19 06:30 Not Reportable 03/21/19 06:30 Not Reportable 03/21/19 06:30 Not Reportable 03/21/19 06:30 Not Reportable 03/21/19 06:30 1+ 03/21/19 06:30 Not Reportable 03/21/19 06:30 Few 03/21/19 06:30 Not Reportable 03/21/19 06:30 Not Reportable 03/21/19 06:30 Not Reportable 03/21/19 06:30 Not Reportable 03/21/19 06:30 Not Reportable 03/21/19 06:30 Not Reportable 03/21/19 06:30 Not Reportable 03/21/19 06:30 Acanthocytes (Spur) Not Reportable 03/21/19 06:30 Rouleaux Not Reportable 03/21/19 06:30 Not Reportable 03/21/19 06:30 Not Reportable 03/21/19 06:30 Not Reportable 03/21/19 06:30 Not Reportable 03/21/19 06:30 Hem Pathologist Commnt No 03/21/19 06:30 PT 16.3 Sec. (12.2-14.9) H 03/01/19 09:39 INR 1.35 (0.87-1.13) H 03/01/19 09:39 APTT 33.7 Sec. (24.2-36.6) 02/21/19 18:30 2987.82 ng/mlDDU (0-234) H 02/22/19 05:54 POC ABG pH 7.510 (7.35-7.45) H 03/18/19 06:38 ABG pH 7.424 pH Units (7.350-7.450) 03/19/19 04:23 POC ABG pCO2 38.9 (35-45) 03/18/19 06:38 ABG pCO2 48.0 mm Hg 03/19/19 04:23 POC ABG pO2 164 (80-105) H 03/18/19 06:38 ABG pO2 78.3 mm Hg (80.0-90.0) L 03/19/19 04:23 POC ABG HCO3 31.0 (22-26 mml/L) 03/18/19 06:38 ABG HCO3 30.7 mmol/L (20.0-26.0) H 03/19/19 04:23 POC ABG Total CO2 32 (23-27mmol/L) 03/18/19 06:38 POC ABG O2 Sat 100 03/18/19 06:38 ABG O2 Saturation 97.0 % (95.0-99.0) 03/19/19 04:23 ABG O2 Content 7.9 (0.0-44) 03/19/19 04:23 POC ABG Base Excess 8 ((-2) - (+3)mmol/L) 03/18/19 06:38 ABG Base Excess 5.8 mmol/L (-2.0-3.0) H 03/19/19 04:23 ABG Hemoglobin 5.8 gm/dl (14.0-18.0) L 03/19/19 04:23 ABG Carboxyhemoglobin 2.0 % (0.0-5.0) 03/19/19 04:23 ABG Methemoglobin 0.4 % (0.0-1.5) 03/19/19 04:23 94.6 % (95.0-99.0) L 03/19/19 04:23 35 % 03/19/19 04:23 Sodium 141 mmol/L (137-145) 04/13/19 07:31 Potassium 3.8 mmol/L (3.6-5.0) 04/13/19 07:31 Chloride 96.4 mmol/L (98-107) L 04/13/19 07:31 Carbon Dioxide 33 mmol/L (22-30) H 04/13/19 07:31 15 mmol/L 04/13/19 07:31 BUN 66 mg/dL (9-20) H 04/13/19 07:31 4.5 mg/dL (0.8-1.5) H 04/13/19 07:31 Estimated GFR 16 ml/min 04/13/19 07:31 15 % 04/13/19 07:31 Glucose 103 mg/dL (75-100) H 04/13/19 07:31 POC Glucose 112 (70-105) H 04/14/19 13:07 Lactic Acid 1.00 mmol/L (0.7-2.0) 02/21/19 20:58 Calcium 9.8 mg/dL (8.4-10.2) 04/13/19 07:31 Phosphorus 4.30 mg/dL (2.5-4.5) D 03/31/19 10:26 Magnesium 2.70 mg/dL (1.7-2.3) H 03/30/19 10:13 0.20 mg/dL (0.1-1.2) 03/30/19 10:13 AST 16 units/L (5-40) 03/30/19 10:13 ALT 11 units/L (7-56) 03/30/19 10:13 185 units/L (35-129) H 03/30/19 10:13 28.0 umol/L (25-60) 02/21/19 20:04 64 units/L (55-170) 02/22/19 03:42 CK-MB (CK-2) 3.7 ng/mL (0.0-4.0) 02/22/19 03:42 CK-MB (CK-2) Rel Index 5.7 (0-4) H 02/22/19 03:42 0.193 ng/mL (0.00-0.029) H* 02/22/19 03:42 6.9 g/dL (6.3-8.2) 03/30/19 10:13 2.6 g/dL (3.9-5) L 03/30/19 10:13 0.6 % 03/30/19 10:13 Triglycerides 51 mg/dL (2-149) 02/21/19 18:30 Cholesterol 82 mg/dL (50-199) 02/21/19 18:30 36 mg/dL (50-130) L 02/21/19 18:30 40 mg/dL (40-59) 02/21/19 18:30 2.05 % 02/21/19 18:30 TSH 2.760 mlU/mL (0.270-4.200) 02/21/19 20:04 PTH Intact 267.6 pg/mL (15-65) H 03/02/19 05:15 Salicylates < 0.3 mg/dL (2.8-20.0) L 02/21/19 20:04 Acetaminophen < 5.0 ug/mL (10.0-30.0) L 02/21/19 20:04 Hepatitis A IgM Ab Non-reactive (NonReactive) 03/31/19 22:56 Hep Bs Antigen Non-reactive (Negative) 03/31/19 22:56 Hep B Core IgM Ab Non-reactive (NonReactive) 03/31/19 22:56 Non-reactive (NonReactive) 03/31/19 22:56 Blood Type O POSITIVE 03/22/19 08:48 Antibody Screen Negative 03/22/19 08:48 Crossmatch See Detail 03/22/19 08:48 Active Medications - Current Medications Current Medications: Generic Name Dose Route Start Last Admin Trade Name Freq PRN Reason Stop Dose Admin Albuterol/Ipratropium 1 ampul 02/24/19 20:00 04/14/19 14:03 Duoneb *Not For Prn Use* IH 1 ampul TIDRT SANCHEZ Administration Lipase/Protease/Amylase 1 each 04/10/19 15:16 Pancreaze 10,500 Unit FEEDTUBE PRN PRN For Clogged Feeding Tube Epoetin Solitario 20,000 unit 03/24/19 11:17 04/13/19 17:31 Procrit IV 20,000 unit UMA PRN Administration hemodialysis Famotidine 20 mg 02/23/19 10:00 04/14/19 10:07 Pepcid PO 20 mg DAILY SANCHEZ Administration Hydrophilic Ointment 1 applic 02/21/19 18:24 03/05/19 08:16 Vaseline Lip Therapy TP 1 applic Q2HR PRN Administration Dry Lips Sodium Chloride 100 mls @ 999 mls/hr 02/26/19 09:00 Nacl 0.9% IV UMA PRN Hypotension Insulin Human Regular 0 units 02/26/19 12:00 04/14/19 06:06 Humulin R SUB-Q Not Given Q6HR [facility] Protocol Metoprolol Tartrate 2.5 mg 02/28/19 12:06 03/15/19 05:15 Lopressor IV 2.5 mg Q4HR PRN Administration Tachycardia Multi-Ingred Cream/Lotion/Oil/Oint 1 applic 02/21/19 18:24 03/29/19 21:40 Artificial Tears Ophth Oint OU 1 applic Q4HR PRN Administration Dry Eye(s) Risperidone 1 mg 02/25/19 13:00 04/14/19 10:07 Risperdal PO 1 mg DAILY SANCHEZ Administration Sertraline HCl 100 mg 02/25/19 13:00 04/14/19 10:07 Zoloft PO 100 mg DAILY SANCHEZ Administration Simple Syrup 15 ml 04/10/19 15:16 Simple Syrup FEEDTUBE PRN PRN Hypoglycemia Simple Syrup 30 ml 04/10/19 15:16 Simple Syrup FEEDTUBE PRN PRN Hypoglycemia Sodium Bicarbonate 325 mg 04/10/19 15:16 Sodium Bicarbonate FEEDTUBE PRN PRN For Clogged Feeding Tube Sodium Hypochlorite 1 applic 04/01/19 13:00 04/14/19 10:07 Dakin's Half Strength TP 1 applicatio BID SANCHEZ Administration Nutrition/Malnutrition Assess - Dietary Evaluation Nutrition/Malnutrition Findings: Nutrition Notes Start: 02/22/19 12:51 Freq: Status: Active Protocol: Document 04/13/19 14:54 RM (Rec: 04/13/19 14:59 RM [id number]) Nutrition Notes Initial or Follow up Reassessment Current Diagnosis Diabetes,Hypertension Other Pertinent Diagnosis Sacral PU, ESRD on HD (T/urs /Sat), Schizophrenia,Blind in L eye,S/P trach Current Diet Nepro at 50 ml/hr w/Abhilash BID Labs/Tests Reviewed Pertinent Medications Reviewed Height 5 ft 10 in Weight 78.2 kg [place] Body Weight (kg) 75.45 BMI 24.7 Subjective/Other Information Observed Nepro infusing at 50 ml/hr. Per nurse pt is tolerating TF but she does not know whether pt has been receiving Abhilash d/t it being her first day with this patient. [employer] explained what Abhilash is and that it can be administered via the PEG. Percent of energy/protein needs met: 91%/100% Burn Absent Trauma Absent Minimum of two criteria No #2 Nutrition Diagnosis Increased nutrient needs ( specify in comment below) Diagnosis Progress(for reassessment Continues documentation) #1 Nutrition Diagnosis Inadequate oral intake Diagnosis Progress(for reassessment Continues documentation) Is patient on ventilator? No Is Patient Ambulatory and/or Out of Bed No REE-([place]-confined to bed) 1898.108 Kcal/Kg value to use for calculation 30 Approximate Energy Requirements Using 2346 kcal/Kg Calculation Used for Recommendations Kcal/kg Additional Notes Protein Needs: 90-112g (1.2-1. 5g/kg) Fluid Needs: 1-1.5 L/day Nutrition Intervention Nutrition Support: Nepro with Carbsteady 1.8 at 50 ml/hr Flush 200 ml q4hr Kcal 2,160 Protein (gm) 97 Fluid (mL) 872 Add Supplement/Snack (indicate name/kcal Abhilash BID /protein ) Provides kCal: 190 Provides Protein (gm) 5 Goal #1 TF tolerance Goal #2 Continue to meet at least 75% of calorie and protein needs via TF Anticipated Discharge Needs: TF Follow-Up By: 04/15/19 Additional Comments Follow for TF tolerance, Pt receiving Abhilash
[2019-04-15] MEDS: INSULIN REGULAR, HUMAN 100 UNITS/1 ML SUB-Q SCH ×3 (01:50→12:00)
[2019-04-15] MEDS: IPRATROPIUM/ALBUTEROL SULFATE 3 ML AMPUL.NEB IH SCH ×3 (08:03→20:23)
[2019-04-15] MEDS: SERTRALINE 100 MG TAB PO SCH (10:07)
[2019-04-15] MEDS: risperiDONE 1 MG TAB PO SCH (10:07)
[2019-04-15] MEDS: FAMOTIDINE 20 MG TAB PO SCH (10:07)
[2019-04-15] MEDS: SODIUM HYPOCHLORITE, DAKIN'S 1/2 STRENGTH (0.25%) 473 ML TOPICAL SOLN TP SCH (10:08)
--- NOTE | 2019-04-15 10:30 | Progress Note ---
Assessment and Plan Assessment: * End stage renal disease (outpatient TTS schedule) * Acute hypoxic respiratory failure s/p trach * KEON pneumonia --Sputum cx: MDR Acinetobacter * Cardiomyopathy - EF 35-40% * Atrial fibrillation * History of CVA * Anemia secondary to ESRD * Secondary hyperparathyroidism Plan * Continue HD MWF via WILFRED AVG * UF as tolerated * Nutrition per primary team * Dose medications for renal function * Epogen 20k TIW * Weekly labs Subjective Date of service: 04/15/19 Principal diagnosis: Respiratory failure, acute on chronic systolic HF, ESRD Interval history: no acute issues noted overnight. tolerating HD sessions per HD nurses, due for HD later today Objective - Exam Narrative Exam: General appearance: chronically ill, intubated, frail EENT: normocephalic Neck: trach collar in place Respiratory: coarse mechanical breath sounds bilaterally Cardiology: regular, S1S2, no edema Gastrointestinal: PEG and colostomy noted Integumentary: warm and dry Psychiatric: unable to assess - Vital Signs Vital signs: Vital Signs - 12hr 04/14/19 04/15/19 04/15/19 23:30 00:00 04:00 Temperature 98.3 F 98.2 F Pulse Rate 78 Pulse Rate [ Posterior Bilateral Throughout] Respiratory 18 18 Rate Respiratory Rate [Posterior Bilateral Throughout] Blood Pressure 131/55 Blood Pressure 137/49 [Right] O2 Sat by Pulse 97 Oximetry O2 Sat by Pulse 100 Oximetry [ Assessment] 04/15/19 04/15/19 04/15/19 04:42 08:03 08:20 Temperature 98.2 F Pulse Rate Pulse Rate [ 76 Posterior Bilateral Throughout] Respiratory 18 Rate Respiratory 20 Rate [Posterior Bilateral Throughout] Blood Pressure 137/49 Blood Pressure [Right] O2 Sat by Pulse 94 Oximetry O2 Sat by Pulse Oximetry [ Assessment] 04/15/19 08:21 Temperature Pulse Rate Pulse Rate [ Posterior Bilateral Throughout] Respiratory Rate Respiratory Rate [Posterior Bilateral Throughout] Blood Pressure Blood Pressure [Right] O2 Sat by Pulse Oximetry O2 Sat by Pulse 96 Oximetry [ Assessment] - Lab 04/13/19 07:31 04/13/19 07:31 Most recent lab results ABG pH 7.424 pH Units (7.350-7.450) 03/19/19 04:23 ABG pCO2 48.0 mm Hg 03/19/19 04:23 ABG pO2 78.3 mm Hg (80.0-90.0) L 03/19/19 04:23 ABG HCO3 30.7 mmol/L (20.0-26.0) H 03/19/19 04:23 ABG O2 Saturation 97.0 % (95.0-99.0) 03/19/19 04:23 Calcium 9.8 mg/dL (8.4-10.2) 04/13/19 07:31 Phosphorus 4.30 mg/dL (2.5-4.5) D 03/31/19 10:26 Magnesium 2.70 mg/dL (1.7-2.3) H 03/30/19 10:13 Medications & Allergies - Medications Allergies/Adverse Reactions: Allergies haloperidol [From Haldol] Adverse Reaction (Verified 03/13/18 12:10) Unknown haloperidol lactate [From Haldol] Adverse Reaction (Verified 03/13/18 12:10) Unknown Home Medications: Home Medications Medication Instructions Recorded Confirmed Last Taken Type risperiDONE [RisperDAL] 1 mg PO QAM 03/13/18 02/21/19 Unknown History Sertraline [Zoloft] 100 mg PO QDAY 08/26/18 02/21/19 Unknown History Polyethylene Glycol 3350 [Miralax 17 gm PO QDAY #30 packet 11/05/18 02/21/19 Unknown Rx 3350] Aspirin EC [Halfprin EC] 81 mg PO DAILY #30 11/19/18 02/21/19 Unknown Rx Docusate Sodium [Colace CAP] 100 mg PO BID #60 11/19/18 02/21/19 Unknown Rx Folic Acid [Folvite] 1 mg PO DAILY #30 tab 11/19/18 02/21/19 Unknown Rx Famotidine [Pepcid] 20 mg PO DAILY tablet 12/08/18 02/21/19 Unknown Rx Gabapentin [Neurontin] 100 mg PO QHS capsule 12/08/18 02/21/19 Unknown Rx Metoprolol [Lopressor TAB] 50 mg PO BID 30 Days tablet 12/08/18 02/21/19 Unknown Rx Sevelamer Carbonate [Renvela] 800 mg PO TIDWM tablet 12/08/18 02/21/19 Unknown Rx hydrALAZINE [Apresoline TAB] 100 mg PO Q8HR #120 tablet 12/08/18 02/21/19 Unknown Rx Acetaminophen [Acetaminophen TAB] 650 mg PO Q12H PRN 12/15/18 02/21/19 Unknown History Glucagon,Human Recombinant 1 mg IJ Q15MIN PRN 12/15/18 02/21/19 Unknown History [Glucagon Emergency Kit] Insulin Aspart [NovoLOG 100 See Protocol SQ QWEEK 12/15/18 02/21/19 Unknown History UNITS/ML VIAL] Active Medications: Generic Name Dose Route Start Last Admin Trade Name Freq PRN Reason Stop Dose Admin Albuterol/Ipratropium 1 ampul 02/24/19 20:00 04/15/19 08:03 Duoneb *Not For Prn Use* IH 1 ampul TIDRT SANCHEZ Administration Lipase/Protease/Amylase 1 each 04/10/19 15:16 Pancreaze 10,500 Unit FEEDTUBE PRN PRN For Clogged Feeding Tube Epoetin Solitario 20,000 unit 03/24/19 11:17 04/13/19 17:31 Procrit IV 20,000 unit UMA PRN Administration hemodialysis Famotidine 20 mg 02/23/19 10:00 04/15/19 10:07 Pepcid PO 20 mg DAILY SANCHEZ Administration Hydrophilic Ointment 1 applic 02/21/19 18:24 03/05/19 08:16 Vaseline Lip Therapy TP 1 applic Q2HR PRN Administration Dry Lips Sodium Chloride 100 mls @ 999 mls/hr 02/26/19 09:00 Nacl 0.9% IV UMA PRN Hypotension Insulin Human Regular 0 units 02/26/19 12:00 04/15/19 07:42 Humulin R SUB-Q Not Given Q6HR [facility] Protocol Metoprolol Tartrate 2.5 mg 02/28/19 12:06 03/15/19 05:15 Lopressor IV 2.5 mg Q4HR PRN Administration Tachycardia Multi-Ingred Cream/Lotion/Oil/Oint 1 applic 02/21/19 18:24 03/29/19 21:40 Artificial Tears Ophth Oint OU 1 applic Q4HR PRN Administration Dry Eye(s) Risperidone 1 mg 02/25/19 13:00 04/15/19 10:07 Risperdal PO 1 mg DAILY SANCHEZ Administration Sertraline HCl 100 mg 02/25/19 13:00 04/15/19 10:07 Zoloft PO 100 mg DAILY SANCHEZ Administration Simple Syrup 15 ml 04/10/19 15:16 Simple Syrup FEEDTUBE PRN PRN Hypoglycemia Simple Syrup 30 ml 04/10/19 15:16 Simple Syrup FEEDTUBE PRN PRN Hypoglycemia Sodium Bicarbonate 325 mg 04/10/19 15:16 Sodium Bicarbonate FEEDTUBE PRN PRN For Clogged Feeding Tube Sodium Hypochlorite 1 applic 04/01/19 13:00 04/15/19 10:08 Dakin's Half Strength TP 1 applicatio BID SANCHEZ Administration
--- NOTE | 2019-04-15 13:23 | Progress Note ---
Assessment and Plan 63 y/o male with multiple medical issues admitted with altered mental status, acute respiratory failure requiring mechanical ventilation No new recommendations for today. Please see below. 1. Finished therapy for Acinetobacter. 2. Continue T-piece 3. HD per renal 4. Awaiting placement. Subjective Date of service: 04/15/19 Principal diagnosis: Respiratory failure, acute on chronic systolic HF, ESRD Interval history: No acute events. Objective Vital Signs - 12hr 04/15/19 04/15/19 04/15/19 04:00 04:42 08:03 Temperature 98.2 F 98.2 F Pulse Rate 78 Pulse Rate [ Posterior Bilateral Throughout] Respiratory 18 18 Rate Respiratory Rate [Posterior Bilateral Throughout] Blood Pressure 137/49 Blood Pressure 137/49 [Right] O2 Sat by Pulse 97 94 Oximetry O2 Sat by Pulse Oximetry [ Assessment] 04/15/19 04/15/19 04/15/19 08:20 08:21 10:00 Temperature Pulse Rate 73 Pulse Rate [ 76 Posterior Bilateral Throughout] Respiratory 18 Rate Respiratory 20 Rate [Posterior Bilateral Throughout] Blood Pressure Blood Pressure [Right] O2 Sat by Pulse 96 Oximetry O2 Sat by Pulse 96 Oximetry [ Assessment] 04/15/19 04/15/19 04/15/19 12:20 12:35 12:45 Temperature 98.2 F Pulse Rate 77 74 73 Pulse Rate [ Posterior Bilateral Throughout] Respiratory 18 Rate Respiratory Rate [Posterior Bilateral Throughout] Blood Pressure 130/71 133/75 140/70 Blood Pressure [Right] O2 Sat by Pulse Oximetry O2 Sat by Pulse Oximetry [ Assessment] 04/15/19 13:00 Temperature Pulse Rate 73 Pulse Rate [ Posterior Bilateral Throughout] Respiratory Rate Respiratory Rate [Posterior Bilateral Throughout] Blood Pressure 129/66 Blood Pressure [Right] O2 Sat by Pulse Oximetry O2 Sat by Pulse Oximetry [ Assessment] Constitutional: no acute distress, alert Eyes: non-icteric ENT: oropharynx moist Neck: supple Effort: normal Ascultation: Bilateral: diminished breath sounds, other (coarse BS bilaterally) Percussion: Bilateral: not dull Cardiovascular: other (tachy, RR; no mrg) Gastrointestinal: normoactive bowel sounds, soft, non-tender, non-distended, other (ostomy in place, brown stool) Extremities: no cyanosis, no edema, pink and warm Neurologic: other (mild weakness LUE, o/w nonfocal) Psychiatric: other (unable to assess) CBC and BMP: 04/13/19 07:31 04/13/19 07:31 ABG, PT/INR, D-dimer: ABG POC ABG pH 7.510 (7.35-7.45) H 03/18/19 06:38 ABG pH 7.424 pH Units (7.350-7.450) 03/19/19 04:23 POC ABG pCO2 38.9 (35-45) 03/18/19 06:38 ABG pCO2 48.0 mm Hg 03/19/19 04:23 POC ABG pO2 164 (80-105) H 03/18/19 06:38 ABG pO2 78.3 mm Hg (80.0-90.0) L 03/19/19 04:23 POC ABG HCO3 31.0 (22-26 mml/L) 03/18/19 06:38 POC ABG Total CO2 32 (23-27mmol/L) 03/18/19 06:38 POC ABG O2 Sat 100 03/18/19 06:38 ABG O2 Saturation 97.0 % (95.0-99.0) 03/19/19 04:23 PT/INR, D-dimer PT 16.3 Sec. (12.2-14.9) H 03/01/19 09:39 INR 1.35 (0.87-1.13) H 03/01/19 09:39 2987.82 ng/mlDDU (0-234) H 02/22/19 05:54 Abnormal lab findings: Abnormal Labs 02/21/19 02/21/19 02/21/19 18:30 18:30 18:30 WBC RBC 3.26 L Hgb 8.8 L Hct 29.0 L MCH 27 L MCHC 30 L RDW 19.1 H Lymph % (Auto) 6.1 L [place] % (Auto) Eos % (Auto) Lymph # 0.4 L [place] # Eos # Seg Neutrophils % 86.2 H Seg Neuts % (Manual) Lymphocytes % (Manual) Eosinophils % (Manual) Seg Neutrophils # Lymphocytes # (Manual) Eosinophils # (Manual) PT INR D-Dimer POC ABG pH POC ABG pCO2 POC ABG pO2 ABG pO2 ABG HCO3 ABG Base Excess ABG Hemoglobin Oxyhemoglobin Sodium 133 L Potassium 3.3 L Chloride 93.1 L Carbon Dioxide 33 H BUN Creatinine Glucose 161 H POC Glucose Calcium Phosphorus Magnesium ALT Alkaline Phosphatase 136 H Total Creatine Kinase 37 L CK-MB (CK-2) Rel Index Troponin T 0.192 H* Albumin 2.4 L LDL Cholesterol Direct 36 L PTH Intact Salicylates Acetaminophen Crossmatch 02/21/19 02/21/19 02/21/19 18:42 20:04 20:04 WBC RBC Hgb Hct MCH MCHC RDW Lymph % (Auto) [place] % (Auto) Eos % (Auto) Lymph # [place] # Eos # Seg Neutrophils % Seg Neuts % (Manual) Lymphocytes % (Manual) Eosinophils % (Manual) Seg Neutrophils # Lymphocytes # (Manual) Eosinophils # (Manual) PT INR D-Dimer POC ABG pH POC ABG pCO2 56.7 H POC ABG pO2 291 H ABG pO2 ABG HCO3 ABG Base Excess ABG Hemoglobin Oxyhemoglobin Sodium Potassium Chloride Carbon Dioxide BUN Creatinine Glucose POC Glucose Calcium Phosphorus Magnesium ALT Alkaline Phosphatase Total Creatine Kinase CK-MB (CK-2) Rel Index Troponin T Albumin LDL Cholesterol Direct PTH Intact Salicylates < 0.3 L Acetaminophen < 5.0 L Crossmatch 02/21/19 02/22/19 02/22/19 22:35 03:42 03:42 WBC RBC 3.20 L Hgb 8.8 L Hct 27.6 L MCH MCHC RDW 18.9 H Lymph % (Auto) 7.4 L [place] % (Auto) Eos % (Auto) Lymph # 0.7 L [place] # Eos # Seg Neutrophils % 84.7 H Seg Neuts % (Manual) Lymphocytes % (Manual) Eosinophils % (Manual) Seg Neutrophils # Lymphocytes # (Manual) Eosinophils # (Manual) PT INR D-Dimer POC ABG pH POC ABG pCO2 POC ABG pO2 ABG pO2 ABG HCO3 ABG Base Excess ABG Hemoglobin Oxyhemoglobin Sodium 134 L Potassium 2.6 L* D Chloride Carbon Dioxide BUN Creatinine Glucose POC Glucose Calcium Phosphorus Magnesium ALT Alkaline Phosphatase Total Creatine Kinase CK-MB (CK-2) Rel Index 5.2 H Troponin T 0.202 H* Albumin LDL Cholesterol Direct PTH Intact Salicylates Acetaminophen Crossmatch 02/22/19 02/22/19 02/22/19 03:42 05:54 09:04 WBC RBC Hgb Hct MCH MCHC RDW Lymph % (Auto) [place] % (Auto) Eos % (Auto) Lymph # [place] # Eos # Seg Neutrophils % Seg Neuts % (Manual) Lymphocytes % (Manual) Eosinophils % (Manual) Seg Neutrophils # Lymphocytes # (Manual) Eosinophils # (Manual) PT INR D-Dimer 2987.82 H POC ABG pH 7.451 H POC ABG pCO2 POC ABG pO2 ABG pO2 ABG HCO3 ABG Base Excess ABG Hemoglobin Oxyhemoglobin Sodium Potassium Chloride Carbon Dioxide BUN Creatinine Glucose POC Glucose Calcium Phosphorus Magnesium ALT Alkaline Phosphatase Total Creatine Kinase CK-MB (CK-2) Rel Index 5.7 H Troponin T 0.193 H* Albumin LDL Cholesterol Direct PTH Intact Salicylates Acetaminophen Crossmatch 02/22/19 02/22/19 02/23/19 10:36 23:56 00:52 WBC RBC Hgb Hct MCH MCHC RDW Lymph % (Auto) [place] % (Auto) Eos % (Auto) Lymph # [place] # Eos # Seg Neutrophils % Seg Neuts % (Manual) Lymphocytes % (Manual) Eosinophils % (Manual) Seg Neutrophils # Lymphocytes # (Manual) Eosinophils # (Manual) PT INR D-Dimer POC ABG pH POC ABG pCO2 POC ABG pO2 ABG pO2 ABG HCO3 ABG Base Excess ABG Hemoglobin Oxyhemoglobin Sodium Potassium 3.1 L Chloride Carbon Dioxide BUN Creatinine Glucose POC Glucose 58 L 111 H Calcium Phosphorus Magnesium ALT Alkaline Phosphatase Total Creatine Kinase CK-MB (CK-2) Rel Index Troponin T Albumin LDL Cholesterol Direct PTH Intact Salicylates Acetaminophen Crossmatch 02/23/19 02/23/19 02/23/19 05:00 06:35 14:26 WBC RBC Hgb Hct MCH MCHC RDW Lymph % (Auto) [place] % (Auto) Eos % (Auto) Lymph # [place] # Eos # Seg Neutrophils % Seg Neuts % (Manual) Lymphocytes % (Manual) Eosinophils % (Manual) Seg Neutrophils # Lymphocytes # (Manual) Eosinophils # (Manual) PT INR D-Dimer POC ABG pH POC ABG pCO2 POC ABG pO2 ABG pO2 ABG HCO3 ABG Base Excess ABG Hemoglobin Oxyhemoglobin Sodium 135 L Potassium 3.1 L Chloride Carbon Dioxide BUN 21 H Creatinine 2.0 H Glucose 57 L POC Glucose 64 L 62 L Calcium Phosphorus Magnesium ALT Alkaline Phosphatase Total Creatine Kinase CK-MB (CK-2) Rel Index Troponin T Albumin LDL Cholesterol Direct PTH Intact Salicylates Acetaminophen Crossmatch 0802/24/19 02/24/19 02:11 04:12 04:55 WBC RBC 2.84 L Hgb 7.8 L Hct 24.5 L MCH MCHC RDW 19.5 H Lymph % (Auto) [place] % (Auto) Eos % (Auto) Lymph # [place] # Eos # Seg Neutrophils % Seg Neuts % (Manual) Lymphocytes % (Manual) Eosinophils % (Manual) Seg Neutrophils # Lymphocytes # (Manual) Eosinophils # (Manual) PT INR D-Dimer POC ABG pH 7.511 H POC ABG pCO2 33.9 L POC ABG pO2 62 L ABG pO2 ABG HCO3 ABG Base Excess ABG Hemoglobin Oxyhemoglobin Sodium Potassium Chloride Carbon Dioxide BUN Creatinine Glucose POC Glucose 69 L Calcium Phosphorus Magnesium ALT Alkaline Phosphatase Total Creatine Kinase CK-MB (CK-2) Rel Index Troponin T Albumin LDL Cholesterol Direct PTH Intact Salicylates Acetaminophen Crossmatch 02/24/19 02/24/19 02/25/19 04:55 05:41 04:45 WBC RBC Hgb Hct MCH MCHC RDW Lymph % (Auto) [place] % (Auto) Eos % (Auto) Lymph # [place] # Eos # Seg Neutrophils % Seg Neuts % (Manual) Lymphocytes % (Manual) Eosinophils % (Manual) Seg Neutrophils # Lymphocytes # (Manual) Eosinophils # (Manual) PT INR D-Dimer POC ABG pH 7.466 H POC ABG pCO2 POC ABG pO2 75 L ABG pO2 ABG HCO3 ABG Base Excess ABG Hemoglobin Oxyhemoglobin Sodium Potassium Chloride Carbon Dioxide BUN Creatinine 1.8 H Glucose 73 L POC Glucose 127 H Calcium Phosphorus Magnesium ALT Alkaline Phosphatase Total Creatine Kinase CK-MB (CK-2) Rel Index Troponin T Albumin LDL Cholesterol Direct PTH Intact Salicylates Acetaminophen Crossmatch 02/25/19 02/25/19 02/26/19 16:34 21:33 03:45 WBC RBC 2.96 L Hgb 8.0 L Hct 25.8 L MCH 27 L MCHC 31 L RDW 20.0 H Lymph % (Auto) [place] % (Auto) Eos % (Auto) Lymph # [place] # Eos # Seg Neutrophils % Seg Neuts % (Manual) Lymphocytes % (Manual) Eosinophils % (Manual) Seg Neutrophils # Lymphocytes # (Manual) Eosinophils # (Manual) PT INR D-Dimer POC ABG pH POC ABG pCO2 POC ABG pO2 ABG pO2 ABG HCO3 ABG Base Excess ABG Hemoglobin Oxyhemoglobin Sodium Potassium Chloride Carbon Dioxide BUN Creatinine Glucose POC Glucose 141 H 106 H Calcium Phosphorus Magnesium ALT Alkaline Phosphatase Total Creatine Kinase CK-MB (CK-2) Rel Index Troponin T Albumin LDL Cholesterol Direct PTH Intact Salicylates Acetaminophen Crossmatch 02/26/19 02/26/19 02/26/19 03:45 04:13 07:53 WBC RBC Hgb Hct MCH MCHC RDW Lymph % (Auto) [place] % (Auto) Eos % (Auto) Lymph # [place] # Eos # Seg Neutrophils % Seg Neuts % (Manual) Lymphocytes % (Manual) Eosinophils % (Manual) Seg Neutrophils # Lymphocytes # (Manual) Eosinophils # (Manual) PT INR D-Dimer POC ABG pH 7.470 H POC ABG pCO2 POC ABG pO2 ABG pO2 ABG HCO3 ABG Base Excess ABG Hemoglobin Oxyhemoglobin Sodium Potassium Chloride Carbon Dioxide BUN Creatinine 1.8 H Glucose POC Glucose 110 H Calcium Phosphorus Magnesium ALT Alkaline Phosphatase Total Creatine Kinase CK-MB (CK-2) Rel Index Troponin T Albumin LDL Cholesterol Direct PTH Intact Salicylates Acetaminophen Crossmatch 02/26/19 02/26/19 02/27/19 11:56 17:43 00:12 WBC RBC Hgb Hct MCH MCHC RDW Lymph % (Auto) [place] % (Auto) Eos % (Auto) Lymph # [place] # Eos # Seg Neutrophils % Seg Neuts % (Manual) Lymphocytes % (Manual) Eosinophils % (Manual) Seg Neutrophils # Lymphocytes # (Manual) Eosinophils # (Manual) PT INR D-Dimer POC ABG pH POC ABG pCO2 POC ABG pO2 ABG pO2 ABG HCO3 ABG Base Excess ABG Hemoglobin Oxyhemoglobin Sodium Potassium Chloride Carbon Dioxide BUN Creatinine Glucose POC Glucose 112 H 127 H 127 H Calcium Phosphorus Magnesium ALT Alkaline Phosphatase Total Creatine Kinase CK-MB (CK-2) Rel Index Troponin T Albumin LDL Cholesterol Direct PTH Intact Salicylates Acetaminophen Crossmatch 02/27/19 02/27/19 02/27/19 04:35 13:15 18:02 WBC RBC Hgb Hct MCH MCHC RDW Lymph % (Auto) [place] % (Auto) Eos % (Auto) Lymph # [place] # Eos # Seg Neutrophils % Seg Neuts % (Manual) Lymphocytes % (Manual) Eosinophils % (Manual) Seg Neutrophils # Lymphocytes # (Manual) Eosinophils # (Manual) PT INR D-Dimer POC ABG pH 7.483 H POC ABG pCO2 POC ABG pO2 61 L ABG pO2 ABG HCO3 ABG Base Excess ABG Hemoglobin Oxyhemoglobin Sodium Potassium Chloride Carbon Dioxide BUN Creatinine Glucose POC Glucose 143 H 106 H Calcium Phosphorus Magnesium ALT Alkaline Phosphatase Total Creatine Kinase CK-MB (CK-2) Rel Index Troponin T Albumin LDL Cholesterol Direct PTH Intact Salicylates Acetaminophen Crossmatch 02/28/19 02/28/19 02/28/19 05:50 11:59 17:52 WBC RBC Hgb Hct MCH MCHC RDW Lymph % (Auto) [place] % (Auto) Eos % (Auto) Lymph # [place] # Eos # Seg Neutrophils % Seg Neuts % (Manual) Lymphocytes % (Manual) Eosinophils % (Manual) Seg Neutrophils # Lymphocytes # (Manual) Eosinophils # (Manual) PT INR D-Dimer POC ABG pH POC ABG pCO2 POC ABG pO2 ABG pO2 ABG HCO3 ABG Base Excess ABG Hemoglobin Oxyhemoglobin Sodium Potassium Chloride Carbon Dioxide BUN Creatinine Glucose POC Glucose 134 H 128 H 142 H Calcium Phosphorus Magnesium ALT Alkaline Phosphatase Total Creatine Kinase CK-MB (CK-2) Rel Index Troponin T Albumin LDL Cholesterol Direct PTH Intact Salicylates Acetaminophen Crossmatch 02/28/19 03/01/19 03/01/19 23:13 05:40 09:39 WBC RBC Hgb Hct MCH MCHC RDW Lymph % (Auto) [place] % (Auto) Eos % (Auto) Lymph # [place] # Eos # Seg Neutrophils % Seg Neuts % (Manual) Lymphocytes % (Manual) Eosinophils % (Manual) Seg Neutrophils # Lymphocytes # (Manual) Eosinophils # (Manual) PT 16.3 H INR 1.35 H D-Dimer POC ABG pH POC ABG pCO2 POC ABG pO2 ABG pO2 ABG HCO3 ABG Base Excess ABG Hemoglobin Oxyhemoglobin Sodium Potassium Chloride Carbon Dioxide BUN Creatinine Glucose POC Glucose 112 H 111 H Calcium Phosphorus Magnesium ALT Alkaline Phosphatase Total Creatine Kinase CK-MB (CK-2) Rel Index Troponin T Albumin LDL Cholesterol Direct PTH Intact Salicylates Acetaminophen Crossmatch 03/01/19 03/01/19 03/01/19 11:56 13:54 17:59 WBC RBC Hgb Hct MCH MCHC RDW Lymph % (Auto) [place] % (Auto) Eos % (Auto) Lymph # [place] # Eos # Seg Neutrophils % Seg Neuts % (Manual) Lymphocytes % (Manual) Eosinophils % (Manual) Seg Neutrophils # Lymphocytes # (Manual) Eosinophils # (Manual) PT INR D-Dimer POC ABG pH POC ABG pCO2 POC ABG pO2 ABG pO2 ABG HCO3 ABG Base Excess ABG Hemoglobin Oxyhemoglobin Sodium Potassium Chloride Carbon Dioxide BUN 33 H Creatinine 2.8 H D Glucose 176 H POC Glucose 199 H 147 H Calcium Phosphorus Magnesium ALT Alkaline Phosphatase Total Creatine Kinase CK-MB (CK-2) Rel Index Troponin T Albumin LDL Cholesterol Direct PTH Intact Salicylates Acetaminophen Crossmatch 03/02/19 03/02/19 03/02/19 05:15 05:15 05:15 WBC RBC 2.73 L Hgb 7.4 L Hct 23.0 L MCH 27 L MCHC RDW 19.9 H Lymph % (Auto) [place] % (Auto) 7.9 H Eos % (Auto) 7.6 H Lymph # 1.0 L [place] # Eos # 0.5 H Seg Neutrophils % Seg Neuts % (Manual) Lymphocytes % (Manual) Eosinophils % (Manual) Seg Neutrophils # Lymphocytes # (Manual) Eosinophils # (Manual) PT INR D-Dimer POC ABG pH POC ABG pCO2 POC ABG pO2 ABG pO2 ABG HCO3 ABG Base Excess ABG Hemoglobin Oxyhemoglobin Sodium Potassium Chloride Carbon Dioxide BUN 43 H Creatinine 3.2 H Glucose POC Glucose Calcium Phosphorus 2.30 L Magnesium ALT Alkaline Phosphatase Total Creatine Kinase CK-MB (CK-2) Rel Index Troponin T Albumin LDL Cholesterol Direct PTH Intact 267.6 H Salicylates Acetaminophen Crossmatch 03/02/19 03/02/19 03/03/19 12:32 18:20 13:30 WBC RBC Hgb Hct MCH MCHC RDW Lymph % (Auto) [place] % (Auto) Eos % (Auto) Lymph # [place] # Eos # Seg Neutrophils % Seg Neuts % (Manual) Lymphocytes % (Manual) Eosinophils % (Manual) Seg Neutrophils # Lymphocytes # (Manual) Eosinophils # (Manual) PT INR D-Dimer POC ABG pH POC ABG pCO2 POC ABG pO2 ABG pO2 ABG HCO3 ABG Base Excess ABG Hemoglobin Oxyhemoglobin Sodium Potassium Chloride 97.3 L Carbon Dioxide BUN 26 H Creatinine 2.2 H Glucose 73 L POC Glucose 111 H 156 H Calcium Phosphorus Magnesium ALT Alkaline Phosphatase Total Creatine Kinase CK-MB (CK-2) Rel Index Troponin T Albumin LDL Cholesterol Direct PTH Intact Salicylates Acetaminophen Crossmatch 03/04/19 03/04/19 03/04/19 00:02 05:37 05:40 WBC RBC 2.63 L Hgb 7.2 L Hct 22.2 L MCH MCHC RDW 20.2 H Lymph % (Auto) 10.5 L [place] % (Auto) Eos % (Auto) 4.6 H Lymph # 0.7 L [place] # Eos # Seg Neutrophils % 76.9 H Seg Neuts % (Manual) Lymphocytes % (Manual) Eosinophils % (Manual) Seg Neutrophils # Lymphocytes # (Manual) Eosinophils # (Manual) PT INR D-Dimer POC ABG pH POC ABG pCO2 POC ABG pO2 ABG pO2 ABG HCO3 ABG Base Excess ABG Hemoglobin Oxyhemoglobin Sodium Potassium Chloride Carbon Dioxide BUN Creatinine Glucose POC Glucose 136 H 123 H Calcium Phosphorus Magnesium ALT Alkaline Phosphatase Total Creatine Kinase CK-MB (CK-2) Rel Index Troponin T Albumin LDL Cholesterol Direct PTH Intact Salicylates Acetaminophen Crossmatch 03/04/19 03/04/19 03/04/19 05:40 11:39 23:20 WBC RBC Hgb Hct MCH MCHC RDW Lymph % (Auto) [place] % (Auto) Eos % (Auto) Lymph # [place] # Eos # Seg Neutrophils % Seg Neuts % (Manual) Lymphocytes % (Manual) Eosinophils % (Manual) Seg Neutrophils # Lymphocytes # (Manual) Eosinophils # (Manual) PT INR D-Dimer POC ABG pH POC ABG pCO2 POC ABG pO2 ABG pO2 ABG HCO3 ABG Base Excess ABG Hemoglobin Oxyhemoglobin Sodium Potassium Chloride Carbon Dioxide BUN 34 H Creatinine 2.7 H Glucose 114 H POC Glucose 175 H 151 H Calcium Phosphorus Magnesium ALT Alkaline Phosphatase Total Creatine Kinase CK-MB (CK-2) Rel Index Troponin T Albumin LDL Cholesterol Direct PTH Intact Salicylates Acetaminophen Crossmatch 03/05/19 03/05/19 03/05/19 05:37 12:08 17:11 WBC RBC Hgb Hct MCH MCHC RDW Lymph % (Auto) [place] % (Auto) Eos % (Auto) Lymph # [place] # Eos # Seg Neutrophils % Seg Neuts % (Manual) Lymphocytes % (Manual) Eosinophils % (Manual) Seg Neutrophils # Lymphocytes # (Manual) Eosinophils # (Manual) PT INR D-Dimer POC ABG pH POC ABG pCO2 POC ABG pO2 ABG pO2 ABG HCO3 ABG Base Excess ABG Hemoglobin Oxyhemoglobin Sodium Potassium Chloride Carbon Dioxide BUN Creatinine Glucose POC Glucose 134 H 135 H 135 H Calcium Phosphorus Magnesium ALT Alkaline Phosphatase Total Creatine Kinase CK-MB (CK-2) Rel Index Troponin T Albumin LDL Cholesterol Direct PTH Intact Salicylates Acetaminophen Crossmatch 03/06/19 03/06/19 03/06/19 00:16 13:05 18:09 WBC RBC Hgb Hct MCH MCHC RDW Lymph % (Auto) [place] % (Auto) Eos % (Auto) Lymph # [place] # Eos # Seg Neutrophils % Seg Neuts % (Manual) Lymphocytes % (Manual) Eosinophils % (Manual) Seg Neutrophils # Lymphocytes # (Manual) Eosinophils # (Manual) PT INR D-Dimer POC ABG pH POC ABG pCO2 POC ABG pO2 ABG pO2 ABG HCO3 ABG Base Excess ABG Hemoglobin Oxyhemoglobin Sodium Potassium Chloride Carbon Dioxide BUN Creatinine Glucose POC Glucose 117 H 113 H 131 H Calcium Phosphorus Magnesium ALT Alkaline Phosphatase Total Creatine Kinase CK-MB (CK-2) Rel Index Troponin T Albumin LDL Cholesterol Direct PTH Intact Salicylates Acetaminophen Crossmatch 03/07/19 03/08/19 03/08/19 05:25 05:33 16:00 WBC RBC 2.44 L Hgb 6.6 L Hct 20.8 L MCH 27 L MCHC RDW 19.2 H Lymph % (Auto) [place] % (Auto) Eos % (Auto) 8.6 H Lymph # 0.8 L [place] # Eos # 0.5 H Seg Neutrophils % 70.7 H Seg Neuts % (Manual) Lymphocytes % (Manual) Eosinophils % (Manual) Seg Neutrophils # Lymphocytes # (Manual) Eosinophils # (Manual) PT INR D-Dimer POC ABG pH POC ABG pCO2 POC ABG pO2 ABG pO2 ABG HCO3 ABG Base Excess ABG Hemoglobin Oxyhemoglobin Sodium Potassium Chloride Carbon Dioxide BUN Creatinine Glucose POC Glucose 106 H 108 H Calcium Phosphorus Magnesium ALT Alkaline Phosphatase Total Creatine Kinase CK-MB (CK-2) Rel Index Troponin T Albumin LDL Cholesterol Direct PTH Intact Salicylates Acetaminophen Crossmatch 03/08/19 03/08/19 03/08/19 16:00 18:38 Unknown WBC RBC Hgb Hct MCH MCHC RDW Lymph % (Auto) [place] % (Auto) Eos % (Auto) Lymph # [place] # Eos # Seg Neutrophils % Seg Neuts % (Manual) Lymphocytes % (Manual) Eosinophils % (Manual) Seg Neutrophils # Lymphocytes # (Manual) Eosinophils # (Manual) PT INR D-Dimer POC ABG pH POC ABG pCO2 POC ABG pO2 ABG pO2 ABG HCO3 ABG Base Excess ABG Hemoglobin Oxyhemoglobin Sodium Potassium 5.4 H D Chloride Carbon Dioxide BUN 47 H Creatinine 2.6 H Glucose POC Glucose 123 H Calcium Phosphorus Magnesium ALT < 5 L Alkaline Phosphatase Total Creatine Kinase CK-MB (CK-2) Rel Index Troponin T Albumin 2.2 L LDL Cholesterol Direct PTH Intact Salicylates Acetaminophen Crossmatch See Detail 03/09/19 03/09/19 03/09/19 10:48 12:28 13:53 WBC RBC 2.85 L Hgb 7.7 L Hct 24.2 L MCH 27 L MCHC RDW 18.7 H Lymph % (Auto) [place] % (Auto) Eos % (Auto) Lymph # [place] # Eos # Seg Neutrophils % Seg Neuts % (Manual) Lymphocytes % (Manual) Eosinophils % (Manual) Seg Neutrophils # Lymphocytes # (Manual) Eosinophils # (Manual) PT INR D-Dimer POC ABG pH POC ABG pCO2 POC ABG pO2 ABG pO2 ABG HCO3 30.5 H ABG Base Excess 5.6 H ABG Hemoglobin 8.1 L Oxyhemoglobin 93.8 L Sodium Potassium Chloride Carbon Dioxide BUN Creatinine Glucose POC Glucose 114 H Calcium Phosphorus Magnesium ALT Alkaline Phosphatase Total Creatine Kinase CK-MB (CK-2) Rel Index Troponin T Albumin LDL Cholesterol Direct PTH Intact Salicylates Acetaminophen Crossmatch 03/09/19 03/09/19 03/10/19 17:58 23:53 12:01 WBC RBC Hgb Hct MCH MCHC RDW Lymph % (Auto) [place] % (Auto) Eos % (Auto) Lymph # [place] # Eos # Seg Neutrophils % Seg Neuts % (Manual) Lymphocytes % (Manual) Eosinophils % (Manual) Seg Neutrophils # Lymphocytes # (Manual) Eosinophils # (Manual) PT INR D-Dimer POC ABG pH POC ABG pCO2 POC ABG pO2 ABG pO2 ABG HCO3 ABG Base Excess ABG Hemoglobin Oxyhemoglobin Sodium Potassium Chloride Carbon Dioxide BUN Creatinine Glucose POC Glucose 108 H 128 H 144 H Calcium Phosphorus Magnesium ALT Alkaline Phosphatase Total Creatine Kinase CK-MB (CK-2) Rel Index Troponin T Albumin LDL Cholesterol Direct PTH Intact Salicylates Acetaminophen Crossmatch 03/10/19 03/11/19 03/11/19 16:50 00:24 05:02 WBC RBC Hgb Hct MCH MCHC RDW Lymph % (Auto) [place] % (Auto) Eos % (Auto) Lymph # [place] # Eos # Seg Neutrophils % Seg Neuts % (Manual) Lymphocytes % (Manual) Eosinophils % (Manual) Seg Neutrophils # Lymphocytes # (Manual) Eosinophils # (Manual) PT INR D-Dimer POC ABG pH POC ABG pCO2 POC ABG pO2 ABG pO2 ABG HCO3 ABG Base Excess ABG Hemoglobin Oxyhemoglobin Sodium Potassium Chloride Carbon Dioxide BUN Creatinine Glucose POC Glucose 147 H 123 H 120 H Calcium Phosphorus Magnesium ALT Alkaline Phosphatase Total Creatine Kinase CK-MB (CK-2) Rel Index Troponin T Albumin LDL Cholesterol Direct PTH Intact Salicylates Acetaminophen Crossmatch 03/11/19 03/11/19 03/11/19 11:56 12:20 18:37 WBC RBC Hgb Hct MCH MCHC RDW Lymph % (Auto) [place] % (Auto) Eos % (Auto) Lymph # [place] # Eos # Seg Neutrophils % Seg Neuts % (Manual) Lymphocytes % (Manual) Eosinophils % (Manual) Seg Neutrophils # Lymphocytes # (Manual) Eosinophils # (Manual) PT INR D-Dimer POC ABG pH POC ABG pCO2 POC ABG pO2 ABG pO2 ABG HCO3 ABG Base Excess ABG Hemoglobin Oxyhemoglobin Sodium Potassium 5.2 H Chloride Carbon Dioxide BUN Creatinine Glucose POC Glucose 123 H 125 H Calcium Phosphorus Magnesium ALT Alkaline Phosphatase Total Creatine Kinase CK-MB (CK-2) Rel Index Troponin T Albumin LDL Cholesterol Direct PTH Intact Salicylates Acetaminophen Crossmatch 03/11/19 03/12/19 03/12/19 22:52 12:04 18:25 WBC RBC Hgb Hct MCH MCHC RDW Lymph % (Auto) [place] % (Auto) Eos % (Auto) Lymph # [place] # Eos # Seg Neutrophils % Seg Neuts % (Manual) Lymphocytes % (Manual) Eosinophils % (Manual) Seg Neutrophils # Lymphocytes # (Manual) Eosinophils # (Manual) PT INR D-Dimer POC ABG pH POC ABG pCO2 POC ABG pO2 ABG pO2 ABG HCO3 ABG Base Excess ABG Hemoglobin Oxyhemoglobin Sodium Potassium Chloride Carbon Dioxide BUN Creatinine Glucose POC Glucose 110 H 106 H 118 H Calcium Phosphorus Magnesium ALT Alkaline Phosphatase Total Creatine Kinase CK-MB (CK-2) Rel Index Troponin T Albumin LDL Cholesterol Direct PTH Intact Salicylates Acetaminophen Crossmatch 03/12/19 03/13/1919 23:36 04:38 04:38 WBC RBC 2.95 L Hgb 7.9 L Hct 24.9 L MCH 27 L MCHC RDW 19.9 H Lymph % (Auto) 11.1 L [place] % (Auto) 8.1 H Eos % (Auto) 4.4 H Lymph # 0.9 L [place] # Eos # Seg Neutrophils % 75.4 H Seg Neuts % (Manual) Lymphocytes % (Manual) Eosinophils % (Manual) Seg Neutrophils # Lymphocytes # (Manual) Eosinophils # (Manual) PT INR D-Dimer POC ABG pH POC ABG pCO2 POC ABG pO2 ABG pO2 ABG HCO3 ABG Base Excess ABG Hemoglobin Oxyhemoglobin Sodium 136 L Potassium 5.1 H Chloride 93.8 L Carbon Dioxide BUN 48 H Creatinine 2.7 H Glucose 102 H POC Glucose 115 H Calcium Phosphorus Magnesium ALT < 5 L Alkaline Phosphatase 143 H Total Creatine Kinase CK-MB (CK-2) Rel Index Troponin T Albumin 2.5 L LDL Cholesterol Direct PTH Intact Salicylates Acetaminophen Crossmatch 03/13/19 03/13/19 03/13/19 05:33 13:37 18:03 WBC RBC Hgb Hct MCH MCHC RDW Lymph % (Auto) [place] % (Auto) Eos % (Auto) Lymph # [place] # Eos # Seg Neutrophils % Seg Neuts % (Manual) Lymphocytes % (Manual) Eosinophils % (Manual) Seg Neutrophils # Lymphocytes # (Manual) Eosinophils # (Manual) PT INR D-Dimer POC ABG pH POC ABG pCO2 POC ABG pO2 ABG pO2 ABG HCO3 ABG Base Excess ABG Hemoglobin Oxyhemoglobin Sodium Potassium Chloride Carbon Dioxide BUN Creatinine Glucose POC Glucose 140 H 150 H 158 H Calcium Phosphorus Magnesium ALT Alkaline Phosphatase Total Creatine Kinase CK-MB (CK-2) Rel Index Troponin T Albumin LDL Cholesterol Direct PTH Intact Salicylates Acetaminophen Crossmatch 03/13/19 03/14/19 03/14/19 23:32 05:24 12:20 WBC RBC Hgb Hct MCH MCHC RDW Lymph % (Auto) [place] % (Auto) Eos % (Auto) Lymph # [place] # Eos # Seg Neutrophils % Seg Neuts % (Manual) Lymphocytes % (Manual) Eosinophils % (Manual) Seg Neutrophils # Lymphocytes # (Manual) Eosinophils # (Manual) PT INR D-Dimer POC ABG pH POC ABG pCO2 POC ABG pO2 ABG pO2 ABG HCO3 ABG Base Excess ABG Hemoglobin Oxyhemoglobin Sodium Potassium Chloride Carbon Dioxide BUN Creatinine Glucose POC Glucose 162 H 146 H 127 H Calcium Phosphorus Magnesium ALT Alkaline Phosphatase Total Creatine Kinase CK-MB (CK-2) Rel Index Troponin T Albumin LDL Cholesterol Direct PTH Intact Salicylates Acetaminophen Crossmatch 03/14/19 03/14/19 03/15/19 18:05 23:57 04:38 WBC 12.8 H RBC 3.11 L Hgb 8.1 L Hct 26.5 L MCH 26 L MCHC 31 L RDW 19.7 H Lymph % (Auto) 4.4 L [place] % (Auto) 7.4 H Eos % (Auto) Lymph # 0.6 L [place] # 0.9 H Eos # Seg Neutrophils % 87.3 H Seg Neuts % (Manual) Lymphocytes % (Manual) Eosinophils % (Manual) Seg Neutrophils # 11.2 H Lymphocytes # (Manual) Eosinophils # (Manual) PT INR D-Dimer POC ABG pH POC ABG pCO2 POC ABG pO2 ABG pO2 ABG HCO3 ABG Base Excess ABG Hemoglobin Oxyhemoglobin Sodium Potassium Chloride Carbon Dioxide BUN Creatinine Glucose POC Glucose 142 H 155 H Calcium Phosphorus Magnesium ALT Alkaline Phosphatase Total Creatine Kinase CK-MB (CK-2) Rel Index Troponin T Albumin LDL Cholesterol Direct PTH Intact Salicylates Acetaminophen Crossmatch 03/15/19 03/15/19 03/15/19 04:38 05:31 11:32 WBC RBC Hgb Hct MCH MCHC RDW Lymph % (Auto) [place] % (Auto) Eos % (Auto) Lymph # [place] # Eos # Seg Neutrophils % Seg Neuts % (Manual) Lymphocytes % (Manual) Eosinophils % (Manual) Seg Neutrophils # Lymphocytes # (Manual) Eosinophils # (Manual) PT INR D-Dimer POC ABG pH POC ABG pCO2 POC ABG pO2 ABG pO2 ABG HCO3 ABG Base Excess ABG Hemoglobin Oxyhemoglobin Sodium 135 L Potassium Chloride 91.9 L Carbon Dioxide BUN 54 H Creatinine 2.8 H Glucose 128 H POC Glucose 160 H 109 H Calcium 11.1 H Phosphorus Magnesium ALT Alkaline Phosphatase 161 H Total Creatine Kinase CK-MB (CK-2) Rel Index Troponin T Albumin 2.3 L LDL Cholesterol Direct PTH Intact Salicylates Acetaminophen Crossmatch 03/15/19 03/15/19 03/16/19 18:15 23:41 05:40 WBC RBC Hgb Hct MCH MCHC RDW Lymph % (Auto) [place] % (Auto) Eos % (Auto) Lymph # [place] # Eos # Seg Neutrophils % Seg Neuts % (Manual) Lymphocytes % (Manual) Eosinophils % (Manual) Seg Neutrophils # Lymphocytes # (Manual) Eosinophils # (Manual) PT INR D-Dimer POC ABG pH POC ABG pCO2 POC ABG pO2 ABG pO2 ABG HCO3 ABG Base Excess ABG Hemoglobin Oxyhemoglobin Sodium Potassium Chloride Carbon Dioxide BUN Creatinine Glucose POC Glucose 151 H 110 H 163 H Calcium Phosphorus Magnesium ALT Alkaline Phosphatase Total Creatine Kinase CK-MB (CK-2) Rel Index Troponin T Albumin LDL Cholesterol Direct PTH Intact Salicylates Acetaminophen Crossmatch 03/16/19 03/16/19 03/16/19 11:55 17:04 23:58 WBC RBC Hgb Hct MCH MCHC RDW Lymph % (Auto) [place] % (Auto) Eos % (Auto) Lymph # [place] # Eos # Seg Neutrophils % Seg Neuts % (Manual) Lymphocytes % (Manual) Eosinophils % (Manual) Seg Neutrophils # Lymphocytes # (Manual) Eosinophils # (Manual) PT INR D-Dimer POC ABG pH POC ABG pCO2 POC ABG pO2 ABG pO2 ABG HCO3 ABG Base Excess ABG Hemoglobin Oxyhemoglobin Sodium Potassium Chloride Carbon Dioxide BUN Creatinine Glucose POC Glucose 114 H 147 H 192 H Calcium Phosphorus Magnesium ALT Alkaline Phosphatase Total Creatine Kinase CK-MB (CK-2) Rel Index Troponin T Albumin LDL Cholesterol Direct PTH Intact Salicylates Acetaminophen Crossmatch 03/17/19 03/17/19 03/17/19 05:53 11:17 17:01 WBC RBC Hgb Hct MCH MCHC RDW Lymph % (Auto) [place] % (Auto) Eos % (Auto) Lymph # [place] # Eos # Seg Neutrophils % Seg Neuts % (Manual) Lymphocytes % (Manual) Eosinophils % (Manual) Seg Neutrophils # Lymphocytes # (Manual) Eosinophils # (Manual) PT INR D-Dimer POC ABG pH POC ABG pCO2 POC ABG pO2 ABG pO2 ABG HCO3 ABG Base Excess ABG Hemoglobin Oxyhemoglobin Sodium Potassium Chloride Carbon Dioxide BUN Creatinine Glucose POC Glucose 151 H 161 H 152 H Calcium Phosphorus Magnesium ALT Alkaline Phosphatase Total Creatine Kinase CK-MB (CK-2) Rel Index Troponin T Albumin LDL Cholesterol Direct PTH Intact Salicylates Acetaminophen Crossmatch 03/17/19 03/18/19 03/18/19 21:47 04:15 04:44 WBC RBC Hgb Hct MCH MCHC RDW Lymph % (Auto) [place] % (Auto) Eos % (Auto) Lymph # [place] # Eos # Seg Neutrophils % Seg Neuts % (Manual) Lymphocytes % (Manual) Eosinophils % (Manual) Seg Neutrophils # Lymphocytes # (Manual) Eosinophils # (Manual) PT INR D-Dimer POC ABG pH POC ABG pCO2 POC ABG pO2 ABG pO2 102.8 H ABG HCO3 28.3 H ABG Base Excess ABG Hemoglobin 10.4 L Oxyhemoglobin 94.5 L Sodium Potassium Chloride Carbon Dioxide BUN Creatinine Glucose POC Glucose 170 H 150 H Calcium Phosphorus Magnesium ALT Alkaline Phosphatase Total Creatine Kinase CK-MB (CK-2) Rel Index Troponin T Albumin LDL Cholesterol Direct PTH Intact Salicylates Acetaminophen Crossmatch 03/18/19 03/18/19 03/18/19 06:38 12:12 17:47 WBC RBC Hgb Hct MCH MCHC RDW Lymph % (Auto) [place] % (Auto) Eos % (Auto) Lymph # [place] # Eos # Seg Neutrophils % Seg Neuts % (Manual) Lymphocytes % (Manual) Eosinophils % (Manual) Seg Neutrophils # Lymphocytes # (Manual) Eosinophils # (Manual) PT INR D-Dimer POC ABG pH 7.510 H POC ABG pCO2 POC ABG pO2 164 H ABG pO2 ABG HCO3 ABG Base Excess ABG Hemoglobin Oxyhemoglobin Sodium Potassium Chloride Carbon Dioxide BUN Creatinine Glucose POC Glucose 145 H 149 H Calcium Phosphorus Magnesium ALT Alkaline Phosphatase Total Creatine Kinase CK-MB (CK-2) Rel Index Troponin T Albumin LDL Cholesterol Direct PTH Intact Salicylates Acetaminophen Crossmatch 03/18/19 03/19/19 03/19/19 23:25 01:11 04:23 WBC 15.6 H RBC 2.51 L Hgb 6.5 L Hct 21.6 L MCH 26 L MCHC 30 L RDW 19.8 H Lymph % (Auto) 6.0 L [place] % (Auto) Eos % (Auto) Lymph # 0.9 L [place] # 1.0 H Eos # Seg Neutrophils % 85.5 H Seg Neuts % (Manual) Lymphocytes % (Manual) Eosinophils % (Manual) Seg Neutrophils # 13.4 H Lymphocytes # (Manual) Eosinophils # (Manual) PT INR D-Dimer POC ABG pH POC ABG pCO2 POC ABG pO2 ABG pO2 78.3 L ABG HCO3 30.7 H ABG Base Excess 5.8 H ABG Hemoglobin 5.8 L Oxyhemoglobin 94.6 L Sodium Potassium Chloride Carbon Dioxide BUN Creatinine Glucose POC Glucose 190 H Calcium Phosphorus Magnesium ALT Alkaline Phosphatase Total Creatine Kinase CK-MB (CK-2) Rel Index Troponin T Albumin LDL Cholesterol Direct PTH Intact Salicylates Acetaminophen Crossmatch 03/19/19 03/19/19 03/19/19 05:22 05:35 08:54 WBC RBC Hgb Hct MCH MCHC RDW Lymph % (Auto) [place] % (Auto) Eos % (Auto) Lymph # [place] # Eos # Seg Neutrophils % Seg Neuts % (Manual) Lymphocytes % (Manual) Eosinophils % (Manual) Seg Neutrophils # Lymphocytes # (Manual) Eosinophils # (Manual) PT INR D-Dimer POC ABG pH POC ABG pCO2 POC ABG pO2 ABG pO2 ABG HCO3 ABG Base Excess ABG Hemoglobin Oxyhemoglobin Sodium Potassium Chloride Carbon Dioxide BUN Creatinine Glucose POC Glucose 167 H Calcium Phosphorus Magnesium ALT Alkaline Phosphatase Total Creatine Kinase CK-MB (CK-2) Rel Index Troponin T Albumin LDL Cholesterol Direct PTH Intact Salicylates Acetaminophen Crossmatch See Detail See Detail 03/19/19 03/19/19 03/19/19 12:36 17:02 23:25 WBC RBC Hgb Hct MCH MCHC RDW Lymph % (Auto) [place] % (Auto) Eos % (Auto) Lymph # [place] # Eos # Seg Neutrophils % Seg Neuts % (Manual) Lymphocytes % (Manual) Eosinophils % (Manual) Seg Neutrophils # Lymphocytes # (Manual) Eosinophils # (Manual) PT INR D-Dimer POC ABG pH POC ABG pCO2 POC ABG pO2 ABG pO2 ABG HCO3 ABG Base Excess ABG Hemoglobin Oxyhemoglobin Sodium Potassium Chloride Carbon Dioxide BUN Creatinine Glucose POC Glucose 167 H 135 H 136 H Calcium Phosphorus Magnesium ALT Alkaline Phosphatase Total Creatine Kinase CK-MB (CK-2) Rel Index Troponin T Albumin LDL Cholesterol Direct PTH Intact Salicylates Acetaminophen Crossmatch 03/20/19 03/20/19 03/20/19 05:38 08:40 08:40 WBC RBC 2.61 L Hgb 7.1 L Hct 22.0 L MCH 27 L MCHC RDW 19.6 H Lymph % (Auto) 8.2 L [place] % (Auto) 8.3 H Eos % (Auto) 5.7 H Lymph # 0.8 L [place] # Eos # 0.5 H Seg Neutrophils % 77.3 H Seg Neuts % (Manual) Lymphocytes % (Manual) Eosinophils % (Manual) Seg Neutrophils # Lymphocytes # (Manual) Eosinophils # (Manual) PT INR D-Dimer POC ABG pH POC ABG pCO2 POC ABG pO2 ABG pO2 ABG HCO3 ABG Base Excess ABG Hemoglobin Oxyhemoglobin Sodium Potassium Chloride 95.9 L Carbon Dioxide BUN 69 H Creatinine 2.8 H Glucose 115 H POC Glucose 134 H Calcium 10.5 H Phosphorus Magnesium ALT Alkaline Phosphatase Total Creatine Kinase CK-MB (CK-2) Rel Index Troponin T Albumin LDL Cholesterol Direct PTH Intact Salicylates Acetaminophen Crossmatch 03/20/19 03/20/19 03/20/19 12:13 18:04 23:49 WBC RBC Hgb Hct MCH MCHC RDW Lymph % (Auto) [place] % (Auto) Eos % (Auto) Lymph # [place] # Eos # Seg Neutrophils % Seg Neuts % (Manual) Lymphocytes % (Manual) Eosinophils % (Manual) Seg Neutrophils # Lymphocytes # (Manual) Eosinophils # (Manual) PT INR D-Dimer POC ABG pH POC ABG pCO2 POC ABG pO2 ABG pO2 ABG HCO3 ABG Base Excess ABG Hemoglobin Oxyhemoglobin Sodium Potassium Chloride Carbon Dioxide BUN Creatinine Glucose POC Glucose 144 H 165 H 172 H Calcium Phosphorus Magnesium ALT Alkaline Phosphatase Total Creatine Kinase CK-MB (CK-2) Rel Index Troponin T Albumin LDL Cholesterol Direct PTH Intact Salicylates Acetaminophen Crossmatch 03/21/19 03/21/19 03/21/19 05:00 06:29 06:30 WBC RBC 2.72 L Hgb 7.4 L Hct 22.9 L MCH 27 L MCHC RDW 19.4 H Lymph % (Auto) [place] % (Auto) Eos % (Auto) Lymph # [place] # Eos # Seg Neutrophils % Seg Neuts % (Manual) 81.0 H Lymphocytes % (Manual) 8.0 L Eosinophils % (Manual) 8.0 H Seg Neutrophils # Lymphocytes # (Manual) 0.7 L Eosinophils # (Manual) 0.7 H PT INR D-Dimer POC ABG pH POC ABG pCO2 POC ABG pO2 ABG pO2 ABG HCO3 ABG Base Excess ABG Hemoglobin Oxyhemoglobin Sodium Potassium Chloride Carbon Dioxide 33 H BUN 43 H Creatinine 1.7 H Glucose 145 H POC Glucose 156 H Calcium Phosphorus Magnesium ALT Alkaline Phosphatase 212 H Total Creatine Kinase CK-MB (CK-2) Rel Index Troponin T Albumin 2.2 L LDL Cholesterol Direct PTH Intact Salicylates Acetaminophen Crossmatch 03/21/19 03/21/19 03/22/19 12:02 18:07 00:21 WBC RBC Hgb Hct MCH MCHC RDW Lymph % (Auto) [place] % (Auto) Eos % (Auto) Lymph # [place] # Eos # Seg Neutrophils % Seg Neuts % (Manual) Lymphocytes % (Manual) Eosinophils % (Manual) Seg Neutrophils # Lymphocytes # (Manual) Eosinophils # (Manual) PT INR D-Dimer POC ABG pH POC ABG pCO2 POC ABG pO2 ABG pO2 ABG HCO3 ABG Base Excess ABG Hemoglobin Oxyhemoglobin Sodium Potassium Chloride Carbon Dioxide BUN Creatinine Glucose POC Glucose 163 H 144 H 153 H Calcium Phosphorus Magnesium ALT Alkaline Phosphatase Total Creatine Kinase CK-MB (CK-2) Rel Index Troponin T Albumin LDL Cholesterol Direct PTH Intact Salicylates Acetaminophen Crossmatch 03/22/19 03/22/19 03/22/19 05:23 05:23 05:31 WBC RBC 2.58 L Hgb 7.1 L Hct 21.8 L MCH 27 L MCHC RDW 19.2 H Lymph % (Auto) [place] % (Auto) Eos % (Auto) Lymph # [place] # Eos # Seg Neutrophils % Seg Neuts % (Manual) Lymphocytes % (Manual) Eosinophils % (Manual) Seg Neutrophils # Lymphocytes # (Manual) Eosinophils # (Manual) PT INR D-Dimer POC ABG pH POC ABG pCO2 POC ABG pO2 ABG pO2 ABG HCO3 ABG Base Excess ABG Hemoglobin Oxyhemoglobin Sodium 147 H Potassium Chloride Carbon Dioxide BUN 68 H Creatinine 2.5 H Glucose POC Glucose 116 H Calcium 10.3 H Phosphorus Magnesium ALT Alkaline Phosphatase Total Creatine Kinase CK-MB (CK-2) Rel Index Troponin T Albumin LDL Cholesterol Direct PTH Intact Salicylates Acetaminophen Crossmatch 03/22/19 03/22/19 03/22/19 08:48 12:37 17:35 WBC RBC Hgb Hct MCH MCHC RDW Lymph % (Auto) [place] % (Auto) Eos % (Auto) Lymph # [place] # Eos # Seg Neutrophils % Seg Neuts % (Manual) Lymphocytes % (Manual) Eosinophils % (Manual) Seg Neutrophils # Lymphocytes # (Manual) Eosinophils # (Manual) PT INR D-Dimer POC ABG pH POC ABG pCO2 POC ABG pO2 ABG pO2 ABG HCO3 ABG Base Excess ABG Hemoglobin Oxyhemoglobin Sodium Potassium Chloride Carbon Dioxide BUN Creatinine Glucose POC Glucose 143 H 155 H Calcium Phosphorus Magnesium ALT Alkaline Phosphatase Total Creatine Kinase CK-MB (CK-2) Rel Index Troponin T Albumin LDL Cholesterol Direct PTH Intact Salicylates Acetaminophen Crossmatch See Detail 03/23/19 03/23/19 03/23/19 00:07 04:00 04:00 WBC 11.2 H RBC 2.32 L Hgb 6.4 L Hct 19.7 L* MCH MCHC RDW 19.4 H Lymph % (Auto) [place] % (Auto) Eos % (Auto) Lymph # [place] # Eos # Seg Neutrophils % Seg Neuts % (Manual) Lymphocytes % (Manual) Eosinophils % (Manual) Seg Neutrophils # Lymphocytes # (Manual) Eosinophils # (Manual) PT INR D-Dimer POC ABG pH POC ABG pCO2 POC ABG pO2 ABG pO2 ABG HCO3 ABG Base Excess ABG Hemoglobin Oxyhemoglobin Sodium 147 H Potassium 5.2 H Chloride Carbon Dioxide BUN 86 H Creatinine 3.2 H Glucose 128 H POC Glucose 135 H Calcium 10.3 H Phosphorus Magnesium ALT Alkaline Phosphatase Total Creatine Kinase CK-MB (CK-2) Rel Index Troponin T Albumin LDL Cholesterol Direct PTH Intact Salicylates Acetaminophen Crossmatch 03/23/19 03/23/19 03/23/19 05:21 11:36 11:36 WBC RBC Hgb 7.9 L Hct 25.0 L MCH MCHC RDW Lymph % (Auto) [place] % (Auto) Eos % (Auto) Lymph # [place] # Eos # Seg Neutrophils % Seg Neuts % (Manual) Lymphocytes % (Manual) Eosinophils % (Manual) Seg Neutrophils # Lymphocytes # (Manual) Eosinophils # (Manual) PT INR D-Dimer POC ABG pH POC ABG pCO2 POC ABG pO2 ABG pO2 ABG HCO3 ABG Base Excess ABG Hemoglobin Oxyhemoglobin Sodium Potassium Chloride Carbon Dioxide BUN Creatinine Glucose POC Glucose 132 H 147 H Calcium Phosphorus Magnesium ALT Alkaline Phosphatase Total Creatine Kinase CK-MB (CK-2) Rel Index Troponin T Albumin LDL Cholesterol Direct PTH Intact Salicylates Acetaminophen Crossmatch 03/23/19 03/24/19 03/24/19 17:31 01:22 04:20 WBC 12.2 H RBC 3.05 L Hgb 8.3 L Hct 25.9 L MCH 27 L MCHC RDW 18.7 H Lymph % (Auto) [place] % (Auto) Eos % (Auto) Lymph # [place] # Eos # Seg Neutrophils % Seg Neuts % (Manual) Lymphocytes % (Manual) Eosinophils % (Manual) Seg Neutrophils # Lymphocytes # (Manual) Eosinophils # (Manual) PT INR D-Dimer POC ABG pH POC ABG pCO2 POC ABG pO2 ABG pO2 ABG HCO3 ABG Base Excess ABG Hemoglobin Oxyhemoglobin Sodium Potassium Chloride Carbon Dioxide BUN Creatinine Glucose POC Glucose 182 H 113 H Calcium Phosphorus Magnesium ALT Alkaline Phosphatase Total Creatine Kinase CK-MB (CK-2) Rel Index Troponin T Albumin LDL Cholesterol Direct PTH Intact Salicylates Acetaminophen Crossmatch 03/24/19 03/24/19 03/24/19 04:20 11:59 18:14 WBC RBC Hgb Hct MCH MCHC RDW Lymph % (Auto) [place] % (Auto) Eos % (Auto) Lymph # [place] # Eos # Seg Neutrophils % Seg Neuts % (Manual) Lymphocytes % (Manual) Eosinophils % (Manual) Seg Neutrophils # Lymphocytes # (Manual) Eosinophils # (Manual) PT INR D-Dimer POC ABG pH POC ABG pCO2 POC ABG pO2 ABG pO2 ABG HCO3 ABG Base Excess ABG Hemoglobin Oxyhemoglobin Sodium Potassium Chloride 94.8 L Carbon Dioxide 32 H BUN 53 H Creatinine 2.3 H Glucose POC Glucose 163 H 134 H Calcium Phosphorus Magnesium ALT Alkaline Phosphatase Total Creatine Kinase CK-MB (CK-2) Rel Index Troponin T Albumin LDL Cholesterol Direct PTH Intact Salicylates Acetaminophen Crossmatch 03/24/19 03/25/19 03/25/19 23:15 05:52 12:02 WBC RBC Hgb Hct MCH MCHC RDW Lymph % (Auto) [place] % (Auto) Eos % (Auto) Lymph # [place] # Eos # Seg Neutrophils % Seg Neuts % (Manual) Lymphocytes % (Manual) Eosinophils % (Manual) Seg Neutrophils # Lymphocytes # (Manual) Eosinophils # (Manual) PT INR D-Dimer POC ABG pH POC ABG pCO2 POC ABG pO2 ABG pO2 ABG HCO3 ABG Base Excess ABG Hemoglobin Oxyhemoglobin Sodium Potassium Chloride Carbon Dioxide BUN Creatinine Glucose POC Glucose 129 H 123 H 125 H Calcium Phosphorus Magnesium ALT Alkaline Phosphatase Total Creatine Kinase CK-MB (CK-2) Rel Index Troponin T Albumin LDL Cholesterol Direct PTH Intact Salicylates Acetaminophen Crossmatch 03/25/19 03/26/19 03/26/19 17:27 00:30 05:35 WBC RBC 3.01 L Hgb 8.1 L Hct 25.7 L MCH 27 L MCHC RDW 19.2 H Lymph % (Auto) 11.4 L [place] % (Auto) Eos % (Auto) 8.0 H Lymph # 1.0 L [place] # Eos # 0.7 H Seg Neutrophils % 73.9 H Seg Neuts % (Manual) Lymphocytes % (Manual) Eosinophils % (Manual) Seg Neutrophils # Lymphocytes # (Manual) Eosinophils # (Manual) PT INR D-Dimer POC ABG pH POC ABG pCO2 POC ABG pO2 ABG pO2 ABG HCO3 ABG Base Excess ABG Hemoglobin Oxyhemoglobin Sodium Potassium Chloride Carbon Dioxide BUN Creatinine Glucose POC Glucose 130 H 129 H Calcium Phosphorus Magnesium ALT Alkaline Phosphatase Total Creatine Kinase CK-MB (CK-2) Rel Index Troponin T Albumin LDL Cholesterol Direct PTH Intact Salicylates Acetaminophen Crossmatch 03/26/19 03/26/19 03/26/19 05:35 05:45 12:16 WBC RBC Hgb Hct MCH MCHC RDW Lymph % (Auto) [place] % (Auto) Eos % (Auto) Lymph # [place] # Eos # Seg Neutrophils % Seg Neuts % (Manual) Lymphocytes % (Manual) Eosinophils % (Manual) Seg Neutrophils # Lymphocytes # (Manual) Eosinophils # (Manual) PT INR D-Dimer POC ABG pH POC ABG pCO2 POC ABG pO2 ABG pO2 ABG HCO3 ABG Base Excess ABG Hemoglobin Oxyhemoglobin Sodium Potassium Chloride 94.9 L Carbon Dioxide 31 H BUN 44 H Creatinine 2.0 H Glucose POC Glucose 118 H 107 H Calcium Phosphorus Magnesium ALT Alkaline Phosphatase Total Creatine Kinase CK-MB (CK-2) Rel Index Troponin T Albumin LDL Cholesterol Direct PTH Intact Salicylates Acetaminophen Crossmatch 03/26/19 03/27/19 03/27/19 17:56 00:36 05:37 WBC RBC Hgb Hct MCH MCHC RDW Lymph % (Auto) [place] % (Auto) Eos % (Auto) Lymph # [place] # Eos # Seg Neutrophils % Seg Neuts % (Manual) Lymphocytes % (Manual) Eosinophils % (Manual) Seg Neutrophils # Lymphocytes # (Manual) Eosinophils # (Manual) PT INR D-Dimer POC ABG pH POC ABG pCO2 POC ABG pO2 ABG pO2 ABG HCO3 ABG Base Excess ABG Hemoglobin Oxyhemoglobin Sodium Potassium Chloride Carbon Dioxide BUN Creatinine Glucose POC Glucose 107 H 110 H 122 H Calcium Phosphorus Magnesium ALT Alkaline Phosphatase Total Creatine Kinase CK-MB (CK-2) Rel Index Troponin T Albumin LDL Cholesterol Direct PTH Intact Salicylates Acetaminophen Crossmatch 03/27/19 03/27/19 03/28/19 11:22 18:00 05:17 WBC RBC Hgb Hct MCH MCHC RDW Lymph % (Auto) [place] % (Auto) Eos % (Auto) Lymph # [place] # Eos # Seg Neutrophils % Seg Neuts % (Manual) Lymphocytes % (Manual) Eosinophils % (Manual) Seg Neutrophils # Lymphocytes # (Manual) Eosinophils # (Manual) PT INR D-Dimer POC ABG pH POC ABG pCO2 POC ABG pO2 ABG pO2 ABG HCO3 ABG Base Excess ABG Hemoglobin Oxyhemoglobin Sodium Potassium Chloride Carbon Dioxide BUN Creatinine Glucose POC Glucose 120 H 111 H 107 H Calcium Phosphorus Magnesium ALT Alkaline Phosphatase Total Creatine Kinase CK-MB (CK-2) Rel Index Troponin T Albumin LDL Cholesterol Direct PTH Intact Salicylates Acetaminophen Crossmatch 03/28/19 03/28/19 03/29/19 12:27 18:08 05:47 WBC RBC Hgb Hct MCH MCHC RDW Lymph % (Auto) [place] % (Auto) Eos % (Auto) Lymph # [place] # Eos # Seg Neutrophils % Seg Neuts % (Manual) Lymphocytes % (Manual) Eosinophils % (Manual) Seg Neutrophils # Lymphocytes # (Manual) Eosinophils # (Manual) PT INR D-Dimer POC ABG pH POC ABG pCO2 POC ABG pO2 ABG pO2 ABG HCO3 ABG Base Excess ABG Hemoglobin Oxyhemoglobin Sodium Potassium Chloride Carbon Dioxide BUN Creatinine Glucose POC Glucose 114 H 121 H 112 H Calcium Phosphorus Magnesium ALT Alkaline Phosphatase Total Creatine Kinase CK-MB (CK-2) Rel Index Troponin T Albumin LDL Cholesterol Direct PTH Intact Salicylates Acetaminophen Crossmatch 03/29/19 03/29/19 03/30/19 12:14 18:08 00:31 WBC RBC Hgb Hct MCH MCHC RDW Lymph % (Auto) [place] % (Auto) Eos % (Auto) Lymph # [place] # Eos # Seg Neutrophils % Seg Neuts % (Manual) Lymphocytes % (Manual) Eosinophils % (Manual) Seg Neutrophils # Lymphocytes # (Manual) Eosinophils # (Manual) PT INR D-Dimer POC ABG pH POC ABG pCO2 POC ABG pO2 ABG pO2 ABG HCO3 ABG Base Excess ABG Hemoglobin Oxyhemoglobin Sodium Potassium Chloride Carbon Dioxide BUN Creatinine Glucose POC Glucose 117 H 140 H 114 H Calcium Phosphorus Magnesium ALT Alkaline Phosphatase Total Creatine Kinase CK-MB (CK-2) Rel Index Troponin T Albumin LDL Cholesterol Direct PTH Intact Salicylates Acetaminophen Crossmatch 03/30/19 03/30/19 03/30/19 10:13 10:13 23:53 WBC RBC 2.81 L Hgb 7.7 L Hct 24.3 L MCH 27 L MCHC RDW 19.0 H Lymph % (Auto) 12.2 L [place] % (Auto) Eos % (Auto) 7.9 H Lymph # 1.0 L [place] # Eos # 0.6 H Seg Neutrophils % 72.3 H Seg Neuts % (Manual) Lymphocytes % (Manual) Eosinophils % (Manual) Seg Neutrophils # Lymphocytes # (Manual) Eosinophils # (Manual) PT INR D-Dimer POC ABG pH POC ABG pCO2 POC ABG pO2 ABG pO2 ABG HCO3 ABG Base Excess ABG Hemoglobin Oxyhemoglobin Sodium Potassium 5.1 H Chloride 96.5 L Carbon Dioxide BUN 73 H Creatinine 3.9 H D Glucose POC Glucose 114 H Calcium 10.3 H Phosphorus 6.30 H Magnesium 2.70 H ALT Alkaline Phosphatase 185 H Total Creatine Kinase CK-MB (CK-2) Rel Index Troponin T Albumin 2.6 L LDL Cholesterol Direct PTH Intact Salicylates Acetaminophen Crossmatch 03/31/19 03/31/19 03/31/19 05:45 10:26 10:26 WBC RBC 3.01 L Hgb 8.2 L Hct 26.4 L MCH 27 L MCHC 31 L RDW 20.3 H Lymph % (Auto) 13.3 L [place] % (Auto) Eos % (Auto) 7.2 H Lymph # 1.1 L [place] # Eos # 0.6 H Seg Neutrophils % 72.1 H Seg Neuts % (Manual) Lymphocytes % (Manual) Eosinophils % (Manual) Seg Neutrophils # Lymphocytes # (Manual) Eosinophils # (Manual) PT INR D-Dimer POC ABG pH POC ABG pCO2 POC ABG pO2 ABG pO2 ABG HCO3 ABG Base Excess ABG Hemoglobin Oxyhemoglobin Sodium Potassium Chloride 96.9 L Carbon Dioxide 33 H BUN 37 H Creatinine 2.4 H Glucose POC Glucose 108 H Calcium 10.3 H Phosphorus Magnesium ALT Alkaline Phosphatase Total Creatine Kinase CK-MB (CK-2) Rel Index Troponin T Albumin LDL Cholesterol Direct PTH Intact Salicylates Acetaminophen Crossmatch 03/31/19 04/01/19 04/01/19 12:38 05:48 12:06 WBC RBC Hgb Hct MCH MCHC RDW Lymph % (Auto) [place] % (Auto) Eos % (Auto) Lymph # [place] # Eos # Seg Neutrophils % Seg Neuts % (Manual) Lymphocytes % (Manual) Eosinophils % (Manual) Seg Neutrophils # Lymphocytes # (Manual) Eosinophils # (Manual) PT INR D-Dimer POC ABG pH POC ABG pCO2 POC ABG pO2 ABG pO2 ABG HCO3 ABG Base Excess ABG Hemoglobin Oxyhemoglobin Sodium Potassium Chloride Carbon Dioxide BUN Creatinine Glucose POC Glucose 108 H 114 H 111 H Calcium Phosphorus Magnesium ALT Alkaline Phosphatase Total Creatine Kinase CK-MB (CK-2) Rel Index Troponin T Albumin LDL Cholesterol Direct PTH Intact Salicylates Acetaminophen Crossmatch 04/01/19 04/02/19 04/04/19 18:24 00:36 23:55 WBC RBC Hgb Hct MCH MCHC RDW Lymph % (Auto) [place] % (Auto) Eos % (Auto) Lymph # [place] # Eos # Seg Neutrophils % Seg Neuts % (Manual) Lymphocytes % (Manual) Eosinophils % (Manual) Seg Neutrophils # Lymphocytes # (Manual) Eosinophils # (Manual) PT INR D-Dimer POC ABG pH POC ABG pCO2 POC ABG pO2 ABG pO2 ABG HCO3 ABG Base Excess ABG Hemoglobin Oxyhemoglobin Sodium Potassium Chloride Carbon Dioxide BUN Creatinine Glucose POC Glucose 113 H 117 H 109 H Calcium Phosphorus Magnesium ALT Alkaline Phosphatase Total Creatine Kinase CK-MB (CK-2) Rel Index Troponin T Albumin LDL Cholesterol Direct PTH Intact Salicylates Acetaminophen Crossmatch 04/06/19 04/06/19 04/06/19 00:11 06:02 23:30 WBC RBC Hgb Hct MCH MCHC RDW Lymph % (Auto) [place] % (Auto) Eos % (Auto) Lymph # [place] # Eos # Seg Neutrophils % Seg Neuts % (Manual) Lymphocytes % (Manual) Eosinophils % (Manual) Seg Neutrophils # Lymphocytes # (Manual) Eosinophils # (Manual) PT INR D-Dimer POC ABG pH POC ABG pCO2 POC ABG pO2 ABG pO2 ABG HCO3 ABG Base Excess ABG Hemoglobin Oxyhemoglobin Sodium Potassium Chloride Carbon Dioxide BUN Creatinine Glucose POC Glucose 116 H 112 H 112 H Calcium Phosphorus Magnesium ALT Alkaline Phosphatase Total Creatine Kinase CK-MB (CK-2) Rel Index Troponin T Albumin LDL Cholesterol Direct PTH Intact Salicylates Acetaminophen Crossmatch 04/08/19 04/08/19 04/08/19 02:23 06:19 13:01 WBC RBC Hgb Hct MCH MCHC RDW Lymph % (Auto) [place] % (Auto) Eos % (Auto) Lymph # [place] # Eos # Seg Neutrophils % Seg Neuts % (Manual) Lymphocytes % (Manual) Eosinophils % (Manual) Seg Neutrophils # Lymphocytes # (Manual) Eosinophils # (Manual) PT INR D-Dimer POC ABG pH POC ABG pCO2 POC ABG pO2 ABG pO2 ABG HCO3 ABG Base Excess ABG Hemoglobin Oxyhemoglobin Sodium Potassium Chloride Carbon Dioxide BUN Creatinine Glucose POC Glucose 144 H 126 H 118 H Calcium Phosphorus Magnesium ALT Alkaline Phosphatase Total Creatine Kinase CK-MB (CK-2) Rel Index Troponin T Albumin LDL Cholesterol Direct PTH Intact Salicylates Acetaminophen Crossmatch 04/08/19 04/09/19 04/10/19 23:28 05:52 06:34 WBC RBC Hgb Hct MCH MCHC RDW Lymph % (Auto) [place] % (Auto) Eos % (Auto) Lymph # [place] # Eos # Seg Neutrophils % Seg Neuts % (Manual) Lymphocytes % (Manual) Eosinophils % (Manual) Seg Neutrophils # Lymphocytes # (Manual) Eosinophils # (Manual) PT INR D-Dimer POC ABG pH POC ABG pCO2 POC ABG pO2 ABG pO2 ABG HCO3 ABG Base Excess ABG Hemoglobin Oxyhemoglobin Sodium Potassium Chloride Carbon Dioxide BUN Creatinine Glucose POC Glucose 119 H 116 H 114 H Calcium Phosphorus Magnesium ALT Alkaline Phosphatase Total Creatine Kinase CK-MB (CK-2) Rel Index Troponin T Albumin LDL Cholesterol Direct PTH Intact Salicylates Acetaminophen Crossmatch 04/10/19 04/10/19 04/11/19 12:34 18:59 00:36 WBC RBC Hgb Hct MCH MCHC RDW Lymph % (Auto) [place] % (Auto) Eos % (Auto) Lymph # [place] # Eos # Seg Neutrophils % Seg Neuts % (Manual) Lymphocytes % (Manual) Eosinophils % (Manual) Seg Neutrophils # Lymphocytes # (Manual) Eosinophils # (Manual) PT INR D-Dimer POC ABG pH POC ABG pCO2 POC ABG pO2 ABG pO2 ABG HCO3 ABG Base Excess ABG Hemoglobin Oxyhemoglobin Sodium Potassium Chloride Carbon Dioxide BUN Creatinine Glucose POC Glucose 112 H 109 H 124 H Calcium Phosphorus Magnesium ALT Alkaline Phosphatase Total Creatine Kinase CK-MB (CK-2) Rel Index Troponin T Albumin LDL Cholesterol Direct PTH Intact Salicylates Acetaminophen Crossmatch 04/11/19 04/11/19 04/12/19 08:01 17:25 02:18 WBC RBC Hgb Hct MCH MCHC RDW Lymph % (Auto) [place] % (Auto) Eos % (Auto) Lymph # [place] # Eos # Seg Neutrophils % Seg Neuts % (Manual) Lymphocytes % (Manual) Eosinophils % (Manual) Seg Neutrophils # Lymphocytes # (Manual) Eosinophils # (Manual) PT INR D-Dimer POC ABG pH POC ABG pCO2 POC ABG pO2 ABG pO2 ABG HCO3 ABG Base Excess ABG Hemoglobin Oxyhemoglobin Sodium Potassium Chloride Carbon Dioxide BUN Creatinine Glucose POC Glucose 118 H 106 H 125 H Calcium Phosphorus Magnesium ALT Alkaline Phosphatase Total Creatine Kinase CK-MB (CK-2) Rel Index Troponin T Albumin LDL Cholesterol Direct PTH Intact Salicylates Acetaminophen Crossmatch 04/12/19 04/12/19 04/12/19 06:24 12:22 17:13 WBC RBC Hgb Hct MCH MCHC RDW Lymph % (Auto) [place] % (Auto) Eos % (Auto) Lymph # [place] # Eos # Seg Neutrophils % Seg Neuts % (Manual) Lymphocytes % (Manual) Eosinophils % (Manual) Seg Neutrophils # Lymphocytes # (Manual) Eosinophils # (Manual) PT INR D-Dimer POC ABG pH POC ABG pCO2 POC ABG pO2 ABG pO2 ABG HCO3 ABG Base Excess ABG Hemoglobin Oxyhemoglobin Sodium Potassium Chloride Carbon Dioxide BUN Creatinine Glucose POC Glucose 128 H 114 H 110 H Calcium Phosphorus Magnesium ALT Alkaline Phosphatase Total Creatine Kinase CK-MB (CK-2) Rel Index Troponin T Albumin LDL Cholesterol Direct PTH Intact Salicylates Acetaminophen Crossmatch 04/13/19 04/13/19 04/13/19 06:59 07:31 07:31 WBC RBC 3.34 L Hgb 8.9 L Hct 28.6 L MCH 27 L MCHC 31 L RDW 19.6 H Lymph % (Auto) [place] % (Auto) Eos % (Auto) Lymph # [place] # Eos # Seg Neutrophils % Seg Neuts % (Manual) Lymphocytes % (Manual) Eosinophils % (Manual) Seg Neutrophils # Lymphocytes # (Manual) Eosinophils # (Manual) PT INR D-Dimer POC ABG pH POC ABG pCO2 POC ABG pO2 ABG pO2 ABG HCO3 ABG Base Excess ABG Hemoglobin Oxyhemoglobin Sodium Potassium Chloride 96.4 L Carbon Dioxide 33 H BUN 66 H Creatinine 4.5 H Glucose 103 H POC Glucose 107 H Calcium Phosphorus Magnesium ALT Alkaline Phosphatase Total Creatine Kinase CK-MB (CK-2) Rel Index Troponin T Albumin LDL Cholesterol Direct PTH Intact Salicylates Acetaminophen Crossmatch 04/13/19 04/14/19 04/14/19 23:43 05:50 13:07 WBC RBC Hgb Hct MCH MCHC RDW Lymph % (Auto) [place] % (Auto) Eos % (Auto) Lymph # [place] # Eos # Seg Neutrophils % Seg Neuts % (Manual) Lymphocytes % (Manual) Eosinophils % (Manual) Seg Neutrophils # Lymphocytes # (Manual) Eosinophils # (Manual) PT INR D-Dimer POC ABG pH POC ABG pCO2 POC ABG pO2 ABG pO2 ABG HCO3 ABG Base Excess ABG Hemoglobin Oxyhemoglobin Sodium Potassium Chloride Carbon Dioxide BUN Creatinine Glucose POC Glucose 119 H 112 H 112 H Calcium Phosphorus Magnesium ALT Alkaline Phosphatase Total Creatine Kinase CK-MB (CK-2) Rel Index Troponin T Albumin LDL Cholesterol Direct PTH Intact Salicylates Acetaminophen Crossmatch 04/14/19 04/15/19 04/15/19 18:35 01:18 05:17 WBC RBC Hgb Hct MCH MCHC RDW Lymph % (Auto) [place] % (Auto) Eos % (Auto) Lymph # [place] # Eos # Seg Neutrophils % Seg Neuts % (Manual) Lymphocytes % (Manual) Eosinophils % (Manual) Seg Neutrophils # Lymphocytes # (Manual) Eosinophils # (Manual) PT INR D-Dimer POC ABG pH POC ABG pCO2 POC ABG pO2 ABG pO2 ABG HCO3 ABG Base Excess ABG Hemoglobin Oxyhemoglobin Sodium Potassium Chloride Carbon Dioxide BUN Creatinine Glucose POC Glucose 114 H 114 H 114 H Calcium Phosphorus Magnesium ALT Alkaline Phosphatase Total Creatine Kinase CK-MB (CK-2) Rel Index Troponin T Albumin LDL Cholesterol Direct PTH Intact Salicylates Acetaminophen Crossmatch 04/15/19 11:50 WBC RBC Hgb Hct MCH MCHC RDW Lymph % (Auto) [place] % (Auto) Eos % (Auto) Lymph # [place] # Eos # Seg Neutrophils % Seg Neuts % (Manual) Lymphocytes % (Manual) Eosinophils % (Manual) Seg Neutrophils # Lymphocytes # (Manual) Eosinophils # (Manual) PT INR D-Dimer POC ABG pH POC ABG pCO2 POC ABG pO2 ABG pO2 ABG HCO3 ABG Base Excess ABG Hemoglobin Oxyhemoglobin Sodium Potassium Chloride Carbon Dioxide BUN Creatinine Glucose POC Glucose 109 H Calcium Phosphorus Magnesium ALT Alkaline Phosphatase Total Creatine Kinase CK-MB (CK-2) Rel Index Troponin T Albumin LDL Cholesterol Direct PTH Intact Salicylates Acetaminophen Crossmatch
[2019-04-15] MEDS: EPOETIN ALFA 20,000 UNIT/1 ML INJ IV PRN (15:59)
[2019-04-15] MEDS ORDERED: SODIUM CHLORIDE*PRIMING MACHINE ONLY FOR DIALYSIS MC ONE (16:39)
--- NOTE | 2019-04-15 16:46 | Progress Note ---
Assessment and Plan Assessment and plan: Day 52, which is my first day caring for patient on this admission. Patient is a 63-year-old -[place] man from [facility] with a plethora of co-morbidities including blindness, CVA, CHF, PPM/ICD, loop recorder since 2012 that is MRI compatible, IDDM type 2, sepsis left foot ulcer, afib, ESRD with complications on HD TTS, hypertension, AOCD and GERD who presented to the ED with hypotensive after intubation in the emergency room. Still intubated, diagnosed with fluid overload, pleural effusion. Patient has had recurrent admission in the hospital for similar reason and was recently discharged from the hospital following treatment of Severe Sepsis due to Necrotizing Unstagable sacral decubitus ulcer with ostemomylitis, expected to complete abx on discharge till 02/16/19. Trach and peg done and LTAC transfer with anticipated longer weaning process and wound care management. HR control improved with change in BB. Acute respiratory failure on mechanical ventilator >96 hrs - Currently on trach placed on 03/03 Pulm consult appreciated weaning trial VAP BUNDLE ASPIRATION BUNDLE Continue T-piece Finished therapy for Acinetobacter Acute pulmonary edema, fluid overload on CXR repeat xray intermittently Dialysis Necrotizing Unstagable sacral decubitus ulcer with ostemomyelitis Wound care, Dilated CMP Cardiomyiopathy EF 35-40% Continue diuresis PPM/ICD Acute encephalopathy, probably metabolic or toxic Continues on Mechanical ventilator. ESRD on hemodialysis nephrology following Vascular eval. done re: LUE AV graft, see note Bilateral pleural effusions Anticipate improvement with Permanent atrial fibrillation and flutter Not on anticoagulation because of anemia thrombocytopenia Change noted to BB agent to IV. 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 -Pt is s/p x1 DDVAP RUL atelectasis, nebs as needed DVT prophylaxis Lovenox DNR poor prognosis Awaiting on placement History Interval history: Patient was seen and examined. Follow-up on current diagnosis. No overnight events reported to me. Patient is mainly nonverbal. Imaging, nursing note, chart, labs and old chart reviewed. Hospitalist Physical - Physical exam Narrative exam: Gen: severely disable, nad, awake alert x 1 HEENT: NCAT, EOMI, PERRL, OP Clear Neck: supple, trach CVS/Heart: irreg irregular, normal S1S2, pulses present bilaterally Chest/Lungs: diminished bs ymmetrical chest expansion, good air entry bilaterally GI/Abdomen:peg, colostomy present, good bowel sounds, no guarding or rebound /Bladder: no suprapubic tenderness, no CVA or paraspinal tenderness Extermity/Skin: no c/c/e, no obvious rash MSK: no FROM x 4 Neuro: CN 2-12 grossly intact except vision, no new focal deficits Psych: calm - Constitutional Vitals: Temp Pulse Resp BP Pulse Ox 98.2 F 86 18 124/73 100 04/15/19 16:38 04/15/19 16:38 04/15/19 16:38 04/15/19 16:38 04/15/19 15:29 General appearance: Present: no acute distress, well-nourished Results - Labs CBC & Chem 7: 04/13/19 07:31 04/13/19 07:31 Labs: Laboratory Last Values WBC 6.9 K/mm3 (4.5-11.0) 04/13/19 07:31 RBC 3.34 M/mm3 (3.65-5.03) L 04/13/19 07:31 Hgb 8.9 gm/dl (11.8-15.2) L 04/13/19 07:31 Hct 28.6 % (35.5-45.6) L 04/13/19 07:31 MCV 86 fl (84-94) 04/13/19 07:31 MCH 27 pg (28-32) L 04/13/19 07:31 MCHC 31 % (32-34) L 04/13/19 07:31 RDW 19.6 % (13.2-15.2) H 04/13/19 07:31 Plt Count 319 K/mm3 (140-440) 04/13/19 07:31 Lymph % (Auto) 13.3 % (13.4-35.0) L 03/31/19 10:26 [place] % (Auto) 6.5 % (0.0-7.3) 03/31/19 10: Eos % (Auto) 7.2 % (0.0-4.3) H 03/31/19 10: Baso % (Auto) 0.9 % (0.0-1.8) 03/31/19 10: Lymph # 1.1 K/mm3 (1.2-5.4) L 03/31/19 10: [place] # 0.5 K/mm3 (0.0-0.8) 03/31/19 10: Eos # 0.6 K/mm3 (0.0-0.4) H 03/31/19 10: Baso # 0.1 K/mm3 (0.0-0.1) 03/31/19 10:26 Add Manual Diff Complete 03/21/19 06:30 Total Counted 100 03/21/19 06:30 Seg Neutrophils % 72.1 % (40.0-70.0) H 03/31/19 10:26 Seg Neuts % (Manual) 81.0 % (40.0-70.0) H 03/21/19 06:30 0 % 03/21/19 06:30 8.0 % (13.4-35.0) L 03/21/19 06:30 Reactive Lymphs % (Man) 0 % 03/21/19 06:30 1.0 % (0.0-7.3) 03/21/19 06:30 8.0 % (0.0-4.3) H 03/21/19 06:30 1.0 % (0.0-1.8) 03/21/19 06:30 1.0 % 03/21/19 06:30 0 % 03/21/19 06:30 0 % 03/21/19 06:30 0 % 03/21/19 06:30 Nucleated RBC % Not Reportable 03/21/19 06:30 Seg Neutrophils # 6.0 K/mm3 (1.8-7.7) 03/31/19 10: Seg Neutrophils # Man 6.7 K/mm3 (1.8-7.7) 03/21/19 06:30 Band Neutrophils # 0.0 K/mm3 03/21/19 06:30 0.7 K/mm3 (1.2-5.4) L 03/21/19 06:30 Abs React Lymphs (Man) 0.0 K/mm3 03/21/19 06:30 0.1 K/mm3 (0.0-0.8) 03/21/19 06:30 0.7 K/mm3 (0.0-0.4) H 03/21/19 06:30 0.1 K/mm3 (0.0-0.1) 03/21/19 06:30 0.1 K/mm3 03/21/19 06:30 0.0 K/mm3 03/21/19 06:30 0.0 K/mm3 03/21/19 06:30 Blast Cells # 0.0 K/mm3 03/21/19 06:30 WBC Morphology Not Reportable 03/21/19 06:30 Hypersegmented Neuts Not Reportable 03/21/19 06:30 Hyposegmented Neuts Not Reportable 03/21/19 06:30 Hypogranular Neuts Not Reportable 03/21/19 06:30 Not Reportable 03/21/19 06:30 Not Reportable 03/21/19 06:30 Not Reportable 03/21/19 06:30 Not Reportable 03/21/19 06:30 Not Reportable 03/21/19 06:30 Not Reportable 03/21/19 06:30 Consistent w auto 03/21/19 06:30 Not Reportable 03/21/19 06:30 Plt Clumps, EDTA Not Reportable 03/21/19 06:30 Not Reportable 03/21/19 06:30 Not Reportable 03/21/19 06:30 Not Reportable 03/21/19 06:30 Plt Morphology Comment Not Reportable 03/21/19 06:30 RBC Morphology Not Reportable 03/21/19 06:30 Dimorphic RBCs Not Reportable 03/21/19 06:30 Not Reportable 03/21/19 06:30 Few 03/21/19 06:30 Few 03/21/19 06:30 Few 03/21/19 06:30 Not Reportable 03/21/19 06:30 Not Reportable 03/21/19 06:30 Not Reportable 03/21/19 06:30 Not Reportable 03/21/19 06:30 Not Reportable 03/21/19 06:30 1+ 03/21/19 06:30 Not Reportable 03/21/19 06:30 Few 03/21/19 06:30 Not Reportable 03/21/19 06:30 Not Reportable 03/21/19 06:30 Not Reportable 03/21/19 06:30 Not Reportable 03/21/19 06:30 Not Reportable 03/21/19 06:30 Not Reportable 03/21/19 06:30 Not Reportable 03/21/19 06:30 Acanthocytes (Spur) Not Reportable 03/21/19 06:30 Rouleaux Not Reportable 03/21/19 06:30 Not Reportable 03/21/19 06:30 Not Reportable 03/21/19 06:30 Not Reportable 03/21/19 06:30 Not Reportable 03/21/19 06:30 Hem Pathologist Commnt No 03/21/19 06:30 PT 16.3 Sec. (12.2-14.9) H 03/01/19 09:39 INR 1.35 (0.87-1.13) H 03/01/19 09:39 APTT 33.7 Sec. (24.2-36.6) 02/21/19 18:30 2987.82 ng/mlDDU (0-234) H 02/22/19 05:54 POC ABG pH 7.510 (7.35-7.45) H 03/18/19 06:38 ABG pH 7.424 pH Units (7.350-7.450) 03/19/19 04:23 POC ABG pCO2 38.9 (35-45) 03/18/19 06:38 ABG pCO2 48.0 mm Hg 03/19/19 04:23 POC ABG pO2 164 (80-105) H 03/18/19 06:38 ABG pO2 78.3 mm Hg (80.0-90.0) L 03/19/19 04:23 POC ABG HCO3 31.0 (22-26 mml/L) 03/18/19 06:38 ABG HCO3 30.7 mmol/L (20.0-26.0) H 03/19/19 04:23 POC ABG Total CO2 32 (23-27mmol/L) 03/18/19 06:38 POC ABG O2 Sat 100 03/18/19 06:38 ABG O2 Saturation 97.0 % (95.0-99.0) 03/19/19 04:23 ABG O2 Content 7.9 (0.0-44) 03/19/19 04:23 POC ABG Base Excess 8 ((-2) - (+3)mmol/L) 03/18/19 06:38 ABG Base Excess 5.8 mmol/L (-2.0-3.0) H 03/19/19 04:23 ABG Hemoglobin 5.8 gm/dl (14.0-18.0) L 03/19/19 04:23 ABG Carboxyhemoglobin 2.0 % (0.0-5.0) 03/19/19 04:23 ABG Methemoglobin 0.4 % (0.0-1.5) 03/19/19 04:23 94.6 % (95.0-99.0) L 03/19/19 04:23 35 % 03/19/19 04:23 Sodium 141 mmol/L (137-145) 04/13/19 07:31 Potassium 3.8 mmol/L (3.6-5.0) 04/13/19 07:31 Chloride 96.4 mmol/L (98-107) L 04/13/19 07:31 Carbon Dioxide 33 mmol/L (22-30) H 04/13/19 07:31 15 mmol/L 04/13/19 07:31 BUN 66 mg/dL (9-20) H 04/13/19 07:31 4.5 mg/dL (0.8-1.5) H 04/13/19 07:31 Estimated GFR 16 ml/min 04/13/19 07:31 15 % 04/13/19 07:31 Glucose 103 mg/dL (75-100) H 04/13/19 07:31 POC Glucose 109 (70-105) H 04/15/19 11:50 Lactic Acid 1.00 mmol/L (0.7-2.0) 02/21/19 20:58 Calcium 9.8 mg/dL (8.4-10.2) 04/13/19 07:31 Phosphorus 4.30 mg/dL (2.5-4.5) D 03/31/19 10:26 Magnesium 2.70 mg/dL (1.7-2.3) H 03/30/19 10:13 0.20 mg/dL (0.1-1.2) 03/30/19 10:13 AST 16 units/L (5-40) 03/30/19 10:13 ALT 11 units/L (7-56) 03/30/19 10:13 185 units/L (35-129) H 03/30/19 10:13 28.0 umol/L (25-60) 02/21/19 20:04 64 units/L (55-170) 02/22/19 03:42 CK-MB (CK-2) 3.7 ng/mL (0.0-4.0) 02/22/19 03:42 CK-MB (CK-2) Rel Index 5.7 (0-4) H 02/22/19 03:42 0.193 ng/mL (0.00-0.029) H* 02/22/19 03:42 6.9 g/dL (6.3-8.2) 03/30/19 10:13 2.6 g/dL (3.9-5) L 03/30/19 10:13 0.6 % 03/30/19 10:13 Triglycerides 51 mg/dL (2-149) 02/21/19 18:30 Cholesterol 82 mg/dL (50-199) 02/21/19 18:30 36 mg/dL (50-130) L 02/21/19 18:30 40 mg/dL (40-59) 02/21/19 18:30 2.05 % 02/21/19 18:30 TSH 2.760 mlU/mL (0.270-4.200) 02/21/19 20:04 PTH Intact 267.6 pg/mL (15-65) H 03/02/19 05:15 Salicylates < 0.3 mg/dL (2.8-20.0) L 02/21/19 20:04 Acetaminophen < 5.0 ug/mL (10.0-30.0) L 02/21/19 20:04 Hepatitis A IgM Ab Non-reactive (NonReactive) 03/31/19 22:56 Hep Bs Antigen Non-reactive (Negative) 03/31/19 22:56 Hep B Core IgM Ab Non-reactive (NonReactive) 03/31/19 22:56 Non-reactive (NonReactive) 03/31/19 22:56 Blood Type O POSITIVE 03/22/19 08:48 Antibody Screen Negative 03/22/19 08:48 Crossmatch See Detail 03/22/19 08:48 Active Medications - Current Medications Current Medications: Generic Name Dose Route Start Last Admin Trade Name Freq PRN Reason Stop Dose Admin Albuterol/Ipratropium 1 ampul 02/24/19 20:00 04/15/19 13:49 Duoneb *Not For Prn Use* IH Not Given TIDRT [facility] Lipase/Protease/Amylase 1 each 04/10/19 15:16 Pancreaze 10,500 Unit FEEDTUBE PRN PRN For Clogged Feeding Tube Epoetin Solitario 20,000 unit 03/24/19 11:17 04/15/19 15:59 Procrit IV 20,000 unit UMA PRN Administration hemodialysis Famotidine 20 mg 02/23/19 10:00 04/15/19 10:07 Pepcid PO 20 mg DAILY SANCHEZ Administration Hydrophilic Ointment 1 applic 02/21/19 18:24 03/05/19 08:16 Vaseline Lip Therapy TP 1 applic Q2HR PRN Administration Dry Lips Sodium Chloride 100 mls @ 999 mls/hr 02/26/19 09:00 Nacl 0.9% IV UMA PRN Hypotension Insulin Human Regular 0 units 02/26/19 12:00 04/15/19 07:42 Humulin R SUB-Q Not Given Q6HR [facility] Protocol Metoprolol Tartrate 2.5 mg 02/28/19 12:06 03/15/19 05:15 Lopressor IV 2.5 mg Q4HR PRN Administration Tachycardia Multi-Ingred Cream/Lotion/Oil/Oint 1 applic 02/21/19 18:24 03/29/19 21:40 Artificial Tears Ophth Oint OU 1 applic Q4HR PRN Administration Dry Eye(s) Risperidone 1 mg 02/25/19 13:00 04/15/19 10:07 Risperdal PO 1 mg DAILY SANCHEZ Administration Sertraline HCl 100 mg 02/25/19 13:00 04/15/19 10:07 Zoloft PO 100 mg DAILY SANCHEZ Administration Simple Syrup 15 ml 04/10/19 15:16 Simple Syrup FEEDTUBE PRN PRN Hypoglycemia Simple Syrup 30 ml 04/10/19 15:16 Simple Syrup FEEDTUBE PRN PRN Hypoglycemia Sodium Bicarbonate 325 mg 04/10/19 15:16 Sodium Bicarbonate FEEDTUBE PRN PRN For Clogged Feeding Tube Sodium Hypochlorite 1 applic 04/01/19 13:00 04/15/19 10:08 Dakin's Half Strength TP 1 applicatio BID SANCHEZ Administration Nutrition/Malnutrition Assess - Dietary Evaluation Nutrition/Malnutrition Findings: Nutrition Notes Start: 02/22/19 12:51 Freq: Status: Active Protocol: Document 04/15/19 09:56 KS (Rec: 04/15/19 10:02 KS [id number]) Co-Sign 04/15/19 09:56 LM Nutrition Notes Initial or Follow up Reassessment Current Diagnosis Diabetes,Hypertension Other Pertinent Diagnosis Sacral PU, ESRD on HD (T/Thurs /Sat), Schizophrenia,Blind in L eye,S/P trach Current Diet Nepro at 50 ml/hr w/Abhilash BID Labs/Tests POC Glu - 114 Pertinent Medications Reviewed Height 5 ft 10 in Weight 78.2 kg [place] Body Weight (kg) 75.45 BMI 24.7 Subjective/Other Information Observed Nepro infusing at 50 ml/hr. RN unsure if pt received Abhilash BID yesterday. RN stated she will make sure it is given to pt BID. Percent of energy/protein needs met: 92%/100% Burn Absent Trauma Absent Minimum of two criteria No #2 Nutrition Diagnosis Increased nutrient needs ( specify in comment below) Diagnosis Progress(for reassessment Continues documentation) #1 Nutrition Diagnosis Inadequate oral intake Diagnosis Progress(for reassessment Continues documentation) Is patient on ventilator? No Is Patient Ambulatory and/or Out of Bed No REE-([facility]-confined to bed) 1898.108 Kcal/Kg value to use for calculation 30 Approximate Energy Requirements Using 2346 kcal/Kg Calculation Used for Recommendations Kcal/kg Additional Notes Protein Needs: 90-112g (1.2-1. 5g/kg) Fluid Needs: 1-1.5 L/day Nutrition Intervention Change Diet Order: Continue TF Nutrition Support: Nepro with Carbsteady 1.8 at 50 ml/hr Flush 200 ml q4hr Kcal 2,160 Protein (gm) 97 Fluid (mL) 872 Add Supplement/Snack (indicate name/kcal Abhilash BID /protein ) Provides kCal: 190 Provides Protein (gm) 5 Goal #1 TF tolerance Goal #2 Continue to meet at least 75% of calorie and protein needs via TF Anticipated Discharge Needs: TF Follow-Up By: 04/17/19 Additional Comments Follow for TF tolerance, Pt receiving Abhilash
[2019-04-16] MEDS: INSULIN REGULAR, HUMAN 100 UNITS/1 ML SUB-Q SCH ×3 (01:03→20:09)
[2019-04-16] MEDS: SODIUM HYPOCHLORITE, DAKIN'S 1/2 STRENGTH (0.25%) 473 ML TOPICAL SOLN TP SCH ×3 (01:10→22:11)
[2019-04-16] MEDS: IPRATROPIUM/ALBUTEROL SULFATE 3 ML AMPUL.NEB IH SCH ×3 (08:55→19:44)
[2019-04-16] MEDS: risperiDONE 1 MG TAB PO SCH (09:42)
[2019-04-16] MEDS: SERTRALINE 100 MG TAB PO SCH (09:42)
[2019-04-16] MEDS: FAMOTIDINE 20 MG TAB PO SCH (09:42)
--- NOTE | 2019-04-16 10:20 | Progress Note ---
Assessment and Plan Assessment: * End stage renal disease (outpatient TTS schedule) * Acute hypoxic respiratory failure s/p trach * KEON pneumonia --Sputum cx: MDR Acinetobacter * Cardiomyopathy - EF 35-40% * Atrial fibrillation * History of CVA * Anemia secondary to ESRD * Secondary hyperparathyroidism Plan * Continue HD MWF via LUE AVG * UF as tolerated * Nutrition per primary team * Dose medications for renal function * Epogen 20k TIW * Weekly labs We will continue to follow patient for renal related issues. Subjective Date of service: 04/16/19 Principal diagnosis: Respiratory failure, acute on chronic systolic HF, ESRD Interval history: no acute issues noted overnight. tolerating HD sessions per HD nurses, last had yesterday without complications. patient remains at baseline poor mental status Objective - Exam Narrative Exam: General appearance: chronically ill, intubated, frail EENT: normocephalic Neck: trach collar in place Respiratory: coarse mechanical breath sounds bilaterally Cardiology: regular, S1S2, no edema Gastrointestinal: PEG and colostomy noted Integumentary: warm and dry Psychiatric: unable to assess - Vital Signs Vital signs: Vital Signs - 12hr 04/15/19 04/16/19 04/16/19 23:29 04:00 08:57 Temperature 98.0 F Pulse Rate 88 Pulse Rate [ 72 Posterior Bilateral Throughout] Respiratory 18 Rate Respiratory 18 Rate [Posterior Bilateral Throughout] Blood Pressure 123/63 - Lab 04/13/19 07:31 04/13/19 07:31 Most recent lab results ABG pH 7.424 pH Units (7.350-7.450) 03/19/19 04:23 ABG pCO2 48.0 mm Hg 03/19/19 04:23 ABG pO2 78.3 mm Hg (80.0-90.0) L 03/19/19 04:23 ABG HCO3 30.7 mmol/L (20.0-26.0) H 03/19/19 04:23 ABG O2 Saturation 97.0 % (95.0-99.0) 03/19/19 04:23 Calcium 9.8 mg/dL (8.4-10.2) 04/13/19 07:31 Phosphorus 4.30 mg/dL (2.5-4.5) D 03/31/19 10:26 Magnesium 2.70 mg/dL (1.7-2.3) H 03/30/19 10:13 Medications & Allergies - Medications Allergies/Adverse Reactions: Allergies haloperidol [From Haldol] Adverse Reaction (Verified 03/13/18 12:10) Unknown haloperidol lactate [From Haldol] Adverse Reaction (Verified 03/13/18 12:10) Unknown Home Medications: Home Medications Medication Instructions Recorded Confirmed Last Taken Type risperiDONE [RisperDAL] 1 mg PO QAM 03/13/18 02/21/19 Unknown History Sertraline [Zoloft] 100 mg PO QDAY 08/26/18 02/21/19 Unknown History Polyethylene Glycol 3350 [Miralax 17 gm PO QDAY #30 packet 11/05/18 02/21/19 Unknown Rx 3350] Aspirin EC [Halfprin EC] 81 mg PO DAILY #30 11/19/18 02/21/19 Unknown Rx Docusate Sodium [Colace CAP] 100 mg PO BID #60 11/19/18 02/21/19 Unknown Rx Folic Acid [Folvite] 1 mg PO DAILY #30 tab 11/19/18 02/21/19 Unknown Rx Famotidine [Pepcid] 20 mg PO DAILY tablet 12/08/18 02/21/19 Unknown Rx Gabapentin [Neurontin] 100 mg PO QHS capsule 12/08/18 02/21/19 Unknown Rx Metoprolol [Lopressor TAB] 50 mg PO BID 30 Days tablet 12/08/18 02/21/19 Unknown Rx Sevelamer Carbonate [Renvela] 800 mg PO TIDWM tablet 12/08/18 02/21/19 Unknown Rx hydrALAZINE [Apresoline TAB] 100 mg PO Q8HR #120 tablet 12/08/18 02/21/19 Unknown Rx Acetaminophen [Acetaminophen TAB] 650 mg PO Q12H PRN 12/15/18 02/21/19 Unknown History Glucagon,Human Recombinant 1 mg IJ Q15MIN PRN 12/15/18 02/21/19 Unknown History [Glucagon Emergency Kit] Insulin Aspart [NovoLOG 100 See Protocol SQ QWEEK 12/15/18 02/21/19 Unknown History UNITS/ML VIAL] Active Medications: Generic Name Dose Route Start Last Admin Trade Name Freq PRN Reason Stop Dose Admin Albuterol/Ipratropium 1 ampul 02/24/19 20:00 04/16/19 08:55 Duoneb *Not For Prn Use* IH 1 ampul TIDRT SANCHEZ Administration Lipase/Protease/Amylase 1 each 04/10/19 15:16 Pancrejewel Barrientos 10,500 Unit FEEDTUBE PRN PRN For Clogged Feeding Tube Epoetin Solitario 20,000 unit 03/24/19 11:17 04/15/19 15:59 Procrit IV 20,000 unit UMA PRN Administration hemodialysis Famotidine 20 mg 02/23/19 10:00 04/16/19 09:42 Pepcid PO 20 mg DAILY SANCHEZ Administration Hydrophilic Ointment 1 applic 02/21/19 18:24 03/05/19 08:16 Vaseline Lip Therapy TP 1 applic Q2HR PRN Administration Dry Lips Sodium Chloride 100 mls @ 999 mls/hr 02/26/19 09:00 Nacl 0.9% IV UMA PRN Hypotension Insulin Human Regular 0 units 02/26/19 12:00 04/16/19 01:03 Humulin R SUB-Q Not Given Q6HR [facility] Protocol Metoprolol Tartrate 2.5 mg 02/28/19 12:06 03/15/19 05:15 Lopressor IV 2.5 mg Q4HR PRN Administration Tachycardia Multi-Ingred Cream/Lotion/Oil/Oint 1 applic 02/21/19 18:24 03/29/19 21:40 Artificial Tears Ophth Oint OU 1 applic Q4HR PRN Administration Dry Eye(s) Risperidone 1 mg 02/25/19 13:00 04/16/19 09:42 Risperdal PO 1 mg DAILY SANCHEZ Administration Sertraline HCl 100 mg 02/25/19 13:00 04/16/19 09:42 Zoloft PO 100 mg DAILY SANCHEZ Administration Simple Syrup 15 ml 04/10/19 15:16 Simple Syrup FEEDTUBE PRN PRN Hypoglycemia Simple Syrup 30 ml 04/10/19 15:16 Simple Syrup FEEDTUBE PRN PRN Hypoglycemia Sodium Bicarbonate 325 mg 04/10/19 15:16 Sodium Bicarbonate FEEDTUBE PRN PRN For Clogged Feeding Tube Sodium Hypochlorite 1 applic 04/01/19 13:00 04/16/19 09:41 Dakin's Half Strength TP 1 applicatio BID SANCHEZ Administration
[2019-04-16] MEDS: MINERAL OIL/PETROLATUM, WHITE OPHTH OINT 3.5 GM OU PRN (14:31)
--- NOTE | 2019-04-16 17:12 | Progress Note ---
Assessment and Plan Assessment and plan: Day 52, which is my first day caring for patient on this admission. Patient is a 63-year-old -[place] man from [facility] with a plethora of co-morbidities including blindness, CVA, CHF, PPM/ICD, loop recorder since 2012 that is MRI compatible, IDDM type 2, sepsis left foot ulcer, afib, ESRD with complications on HD TTS, hypertension, AOCD and GERD who presented to the ED with hypotensive after intubation in the emergency room. Still intubated, diagnosed with fluid overload, pleural effusion. Patient has had recurrent admission in the hospital for similar reason and was recently discharged from the hospital following treatment of Severe Sepsis due to Necrotizing Unstagable sacral decubitus ulcer with ostemomylitis, expected to complete abx on discharge till 02/16/19. Trach and peg done and LTAC transfer with anticipated longer weaning process and wound care management. HR control improved with change in BB. Acute respiratory failure on mechanical ventilator >96 hrs - Currently on trach placed on 03/03 Pulm consult appreciated weaning trial VAP BUNDLE ASPIRATION BUNDLE Continue T-piece Finished therapy for Acinetobacter Acute pulmonary edema, fluid overload on CXR repeat xray intermittently Dialysis Necrotizing Unstagable sacral decubitus ulcer with ostemomyelitis Wound care, Dilated CMP Cardiomyiopathy EF 35-40% Continue diuresis PPM/ICD Acute encephalopathy, probably metabolic or toxic Continues on Mechanical ventilator. ESRD on hemodialysis nephrology following Vascular eval. done re: LUE AV graft, see note Bilateral pleural effusions Anticipate improvement with Permanent atrial fibrillation and flutter Not on anticoagulation because of anemia thrombocytopenia Change noted to BB agent to IV. 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 -Pt is s/p x1 DDVAP RUL atelectasis, nebs as needed DVT prophylaxis Lovenox DNR poor prognosis Awaiting on placement History Interval history: Patient was seen and examined. Follow-up on current diagnosis. No overnight events reported to me. Patient is mainly nonverbal. Imaging, nursing note, chart, labs and old chart reviewed. Hospitalist Physical - Physical exam Narrative exam: Gen: severely disable, nad, awake alert x 1 HEENT: NCAT, EOMI, PERRL, OP Clear Neck: supple, trach CVS/Heart: irreg irregular, normal S1S2, pulses present bilaterally Chest/Lungs: diminished bs ymmetrical chest expansion, good air entry bilaterally GI/Abdomen:peg, colostomy present, good bowel sounds, no guarding or rebound /Bladder: no suprapubic tenderness, no CVA or paraspinal tenderness Extermity/Skin: no c/c/e, no obvious rash MSK: no FROM x 4 Neuro: CN 2-12 grossly intact except vision, no new focal deficits Psych: calm - Constitutional Vitals: Temp Pulse Resp BP Pulse Ox 99.8 F H 66 18 121/65 100 04/16/19 12:23 04/16/19 13:35 04/16/19 13:35 04/16/19 12:23 04/16/19 12:23 General appearance: Present: no acute distress, well-nourished Results - Labs CBC & Chem 7: 04/13/19 07:31 04/13/19 07:31 Labs: Laboratory Last Values WBC 6.9 K/mm3 (4.5-11.0) 04/13/19 07:31 RBC 3.34 M/mm3 (3.65-5.03) L 04/13/19 07:31 Hgb 8.9 gm/dl (11.8-15.2) L 04/13/19 07:31 Hct 28.6 % (35.5-45.6) L 04/13/19 07:31 MCV 86 fl (84-94) 04/13/19 07:31 MCH 27 pg (28-32) L 04/13/19 07:31 MCHC 31 % (32-34) L 04/13/19 07:31 RDW 19.6 % (13.2-15.2) H 04/13/19 07:31 Plt Count 319 K/mm3 (140-440) 04/13/19 07:31 Lymph % (Auto) 13.3 % (13.4-35.0) L 03/31/19 10:26 [place] % (Auto) 6.5 % (0.0-7.3) 03/31/19 10: Eos % (Auto) 7.2 % (0.0-4.3) H 03/31/19 10: Baso % (Auto) 0.9 % (0.0-1.8) 03/31/19 10: Lymph # 1.1 K/mm3 (1.2-5.4) L 03/31/19 10: [place] # 0.5 K/mm3 (0.0-0.8) 03/31/19 10: Eos # 0.6 K/mm3 (0.0-0.4) H 03/31/19 10: Baso # 0.1 K/mm3 (0.0-0.1) 03/31/19 10:26 Add Manual Diff Complete 03/21/19 06:30 Total Counted 100 03/21/19 06:30 Seg Neutrophils % 72.1 % (40.0-70.0) H 03/31/19 10:26 Seg Neuts % (Manual) 81.0 % (40.0-70.0) H 03/21/19 06:30 0 % 03/21/19 06:30 8.0 % (13.4-35.0) L 03/21/19 06:30 Reactive Lymphs % (Man) 0 % 03/21/19 06:30 1.0 % (0.0-7.3) 03/21/19 06:30 8.0 % (0.0-4.3) H 03/21/19 06:30 1.0 % (0.0-1.8) 03/21/19 06:30 1.0 % 03/21/19 06:30 0 % 03/21/19 06:30 0 % 03/21/19 06:30 0 % 03/21/19 06:30 Nucleated RBC % Not Reportable 03/21/19 06:30 Seg Neutrophils # 6.0 K/mm3 (1.8-7.7) 03/31/19 10: Seg Neutrophils # Man 6.7 K/mm3 (1.8-7.7) 03/21/19 06:30 Band Neutrophils # 0.0 K/mm3 03/21/19 06:30 0.7 K/mm3 (1.2-5.4) L 03/21/19 06:30 Abs React Lymphs (Man) 0.0 K/mm3 03/21/19 06:30 0.1 K/mm3 (0.0-0.8) 03/21/19 06:30 0.7 K/mm3 (0.0-0.4) H 03/21/19 06:30 0.1 K/mm3 (0.0-0.1) 03/21/19 06:30 0.1 K/mm3 03/21/19 06:30 0.0 K/mm3 03/21/19 06:30 0.0 K/mm3 03/21/19 06:30 Blast Cells # 0.0 K/mm3 03/21/19 06:30 WBC Morphology Not Reportable 03/21/19 06:30 Hypersegmented Neuts Not Reportable 03/21/19 06:30 Hyposegmented Neuts Not Reportable 03/21/19 06:30 Hypogranular Neuts Not Reportable 03/21/19 06:30 Not Reportable 03/21/19 06:30 Not Reportable 03/21/19 06:30 Not Reportable 03/21/19 06:30 Not Reportable 03/21/19 06:30 Not Reportable 03/21/19 06:30 Not Reportable 03/21/19 06:30 Consistent w auto 03/21/19 06:30 Not Reportable 03/21/19 06:30 Plt Clumps, EDTA Not Reportable 03/21/19 06:30 Not Reportable 03/21/19 06:30 Not Reportable 03/21/19 06:30 Not Reportable 03/21/19 06:30 Plt Morphology Comment Not Reportable 03/21/19 06:30 RBC Morphology Not Reportable 03/21/19 06:30 Dimorphic RBCs Not Reportable 03/21/19 06:30 Not Reportable 03/21/19 06:30 Few 03/21/19 06:30 Few 03/21/19 06:30 Few 03/21/19 06:30 Not Reportable 03/21/19 06:30 Not Reportable 03/21/19 06:30 Not Reportable 03/21/19 06:30 Not Reportable 03/21/19 06:30 Not Reportable 03/21/19 06:30 1+ 03/21/19 06:30 Not Reportable 03/21/19 06:30 Few 03/21/19 06:30 Not Reportable 03/21/19 06:30 Not Reportable 03/21/19 06:30 Not Reportable 03/21/19 06:30 Not Reportable 03/21/19 06:30 Not Reportable 03/21/19 06:30 Not Reportable 03/21/19 06:30 Not Reportable 03/21/19 06:30 Acanthocytes (Spur) Not Reportable 03/21/19 06:30 Rouleaux Not Reportable 03/21/19 06:30 Not Reportable 03/21/19 06:30 Not Reportable 03/21/19 06:30 Not Reportable 03/21/19 06:30 Not Reportable 03/21/19 06:30 Hem Pathologist Commnt No 03/21/19 06:30 PT 16.3 Sec. (12.2-14.9) H 03/01/19 09:39 INR 1.35 (0.87-1.13) H 03/01/19 09:39 APTT 33.7 Sec. (24.2-36.6) 02/21/19 18:30 2987.82 ng/mlDDU (0-234) H 02/22/19 05:54 POC ABG pH 7.510 (7.35-7.45) H 03/18/19 06:38 ABG pH 7.424 pH Units (7.350-7.450) 03/19/19 04:23 POC ABG pCO2 38.9 (35-45) 03/18/19 06:38 ABG pCO2 48.0 mm Hg 03/19/19 04:23 POC ABG pO2 164 (80-105) H 03/18/19 06:38 ABG pO2 78.3 mm Hg (80.0-90.0) L 03/19/19 04:23 POC ABG HCO3 31.0 (22-26 mml/L) 03/18/19 06:38 ABG HCO3 30.7 mmol/L (20.0-26.0) H 03/19/19 04:23 POC ABG Total CO2 32 (23-27mmol/L) 03/18/19 06:38 POC ABG O2 Sat 100 03/18/19 06:38 ABG O2 Saturation 97.0 % (95.0-99.0) 03/19/19 04:23 ABG O2 Content 7.9 (0.0-44) 03/19/19 04:23 POC ABG Base Excess 8 ((-2) - (+3)mmol/L) 03/18/19 06:38 ABG Base Excess 5.8 mmol/L (-2.0-3.0) H 03/19/19 04:23 ABG Hemoglobin 5.8 gm/dl (14.0-18.0) L 03/19/19 04:23 ABG Carboxyhemoglobin 2.0 % (0.0-5.0) 03/19/19 04:23 ABG Methemoglobin 0.4 % (0.0-1.5) 03/19/19 04:23 94.6 % (95.0-99.0) L 03/19/19 04:23 35 % 03/19/19 04:23 Sodium 141 mmol/L (137-145) 04/13/19 07:31 Potassium 3.8 mmol/L (3.6-5.0) 04/13/19 07:31 Chloride 96.4 mmol/L (98-107) L 04/13/19 07:31 Carbon Dioxide 33 mmol/L (22-30) H 04/13/19 07:31 15 mmol/L 04/13/19 07:31 BUN 66 mg/dL (9-20) H 04/13/19 07:31 4.5 mg/dL (0.8-1.5) H 04/13/19 07:31 Estimated GFR 16 ml/min 04/13/19 07:31 15 % 04/13/19 07:31 Glucose 103 mg/dL (75-100) H 04/13/19 07:31 POC Glucose 121 (70-105) H 04/16/19 12:53 Lactic Acid 1.00 mmol/L (0.7-2.0) 02/21/19 20:58 Calcium 9.8 mg/dL (8.4-10.2) 04/13/19 07:31 Phosphorus 4.30 mg/dL (2.5-4.5) D 03/31/19 10:26 Magnesium 2.70 mg/dL (1.7-2.3) H 03/30/19 10:13 0.20 mg/dL (0.1-1.2) 03/30/19 10:13 AST 16 units/L (5-40) 03/30/19 10:13 ALT 11 units/L (7-56) 03/30/19 10:13 185 units/L (35-129) H 03/30/19 10:13 28.0 umol/L (25-60) 02/21/19 20:04 64 units/L (55-170) 02/22/19 03:42 CK-MB (CK-2) 3.7 ng/mL (0.0-4.0) 02/22/19 03:42 CK-MB (CK-2) Rel Index 5.7 (0-4) H 02/22/19 03:42 0.193 ng/mL (0.00-0.029) H* 02/22/19 03:42 6.9 g/dL (6.3-8.2) 03/30/19 10:13 2.6 g/dL (3.9-5) L 03/30/19 10:13 0.6 % 03/30/19 10:13 Triglycerides 51 mg/dL (2-149) 02/21/19 18:30 Cholesterol 82 mg/dL (50-199) 02/21/19 18:30 36 mg/dL (50-130) L 02/21/19 18:30 40 mg/dL (40-59) 02/21/19 18:30 2.05 % 02/21/19 18:30 TSH 2.760 mlU/mL (0.270-4.200) 02/21/19 20:04 PTH Intact 267.6 pg/mL (15-65) H 03/02/19 05:15 Salicylates < 0.3 mg/dL (2.8-20.0) L 02/21/19 20:04 Acetaminophen < 5.0 ug/mL (10.0-30.0) L 02/21/19 20:04 Hepatitis A IgM Ab Non-reactive (NonReactive) 03/31/19 22:56 Hep Bs Antigen Non-reactive (Negative) 03/31/19 22:56 Hep B Core IgM Ab Non-reactive (NonReactive) 03/31/19 22:56 Non-reactive (NonReactive) 03/31/19 22:56 Blood Type O POSITIVE 03/22/19 08:48 Antibody Screen Negative 03/22/19 08:48 Crossmatch See Detail 03/22/19 08:48 Active Medications - Current Medications Current Medications: Generic Name Dose Route Start Last Admin Trade Name Freq PRN Reason Stop Dose Admin Albuterol/Ipratropium 1 ampul 02/24/19 20:00 04/16/19 13:37 Duoneb *Not For Prn Use* IH 1 ampul TIDRT SANCHEZ Administration Lipase/Protease/Amylase 1 each 04/10/19 15:[address] 10,500 Unit FEEDTUBE PRN PRN For Clogged Feeding Tube Epoetin Solitario 20,000 unit 03/24/19 11:17 04/15/19 15:59 Procrit IV 20,000 unit UMA PRN Administration hemodialysis Famotidine 20 mg 02/23/19 10:00 04/16/19 09:42 Pepcid PO 20 mg DAILY SANCHEZ Administration Hydrophilic Ointment 1 applic 02/21/19 18:24 03/05/19 08:16 Vaseline Lip Therapy TP 1 applic Q2HR PRN Administration Dry Lips Sodium Chloride 100 mls @ 999 mls/hr 02/26/19 09:00 Nacl 0.9% IV UMA PRN Hypotension Insulin Human Regular 0 units 02/26/19 12:00 04/16/19 01:03 Humulin R SUB-Q Not Given Q6HR [facility] Protocol Metoprolol Tartrate 2.5 mg 02/28/19 12:06 03/15/19 05:15 Lopressor IV 2.5 mg Q4HR PRN Administration Tachycardia Multi-Ingred Cream/Lotion/Oil/Oint 1 applic 02/21/19 18:24 04/16/19 14:31 Artificial Tears Ophth Oint OU 1 applic Q4HR PRN Administration Dry Eye(s) Risperidone 1 mg 02/25/19 13:00 04/16/19 09:42 Risperdal PO 1 mg DAILY SANCHEZ Administration Sertraline HCl 100 mg 02/25/19 13:00 04/16/19 09:42 Zoloft PO 100 mg DAILY SANCHEZ Administration Simple Syrup 15 ml 04/10/19 15:16 Simple Syrup FEEDTUBE PRN PRN Hypoglycemia Simple Syrup 30 ml 04/10/19 15:16 Simple Syrup FEEDTUBE PRN PRN Hypoglycemia Sodium Bicarbonate 325 mg 04/10/19 15:16 Sodium Bicarbonate FEEDTUBE PRN PRN For Clogged Feeding Tube Sodium Hypochlorite 1 applic 04/01/19 13:00 04/16/19 09:41 Dakin's Half Strength TP 1 applicatio BID SANCHEZ Administration Nutrition/Malnutrition Assess - Dietary Evaluation Nutrition/Malnutrition Findings: Nutrition Notes Start: 02/22/19 12:51 Freq: Status: Active Protocol: Document 04/15/19 09:56 KS (Rec: 04/15/19 10:02 KS [id number]) Co-Sign 04/15/19 09:56 LM Nutrition Notes Initial or Follow up Reassessment Current Diagnosis Diabetes,Hypertension Other Pertinent Diagnosis Sacral PU, ESRD on HD (T/Thurs /Sat), Schizophrenia,Blind in L eye,S/P trach Current Diet Nepro at 50 ml/hr w/Abhilash BID Labs/Tests POC Glu - 114 Pertinent Medications Reviewed Height 5 ft 10 in Weight 78.2 kg [place] Body Weight (kg) 75.45 BMI 24.7 Subjective/Other Information Observed Nepro infusing at 50 ml/hr. RN unsure if pt received Abhilash BID yesterday. RN stated she will make sure it is given to pt BID. Percent of energy/protein needs met: 92%/100% Burn Absent Trauma Absent Minimum of two criteria No #2 Nutrition Diagnosis Increased nutrient needs ( specify in comment below) Diagnosis Progress(for reassessment Continues documentation) #1 Nutrition Diagnosis Inadequate oral intake Diagnosis Progress(for reassessment Continues documentation) Is patient on ventilator? No Is Patient Ambulatory and/or Out of Bed No REE-([facility]-confined to bed) 1898.108 Kcal/Kg value to use for calculation 30 Approximate Energy Requirements Using 2346 kcal/Kg Calculation Used for Recommendations Kcal/kg Additional Notes Protein Needs: 90-112g (1.2-1. 5g/kg) Fluid Needs: 1-1.5 L/day Nutrition Intervention Change Diet Order: Continue TF Nutrition Support: Nepro with Carbsteady 1.8 at 50 ml/hr Flush 200 ml q4hr Kcal 2,160 Protein (gm) 97 Fluid (mL) 872 Add Supplement/Snack (indicate name/kcal Abhilash BID /protein ) Provides kCal: 190 Provides Protein (gm) 5 Goal #1 TF tolerance Goal #2 Continue to meet at least 75% of calorie and protein needs via TF Anticipated Discharge Needs: TF Follow-Up By: 04/17/19 Additional Comments Follow for TF tolerance, Pt receiving Abhilash
[2019-04-17] MEDS: IPRATROPIUM/ALBUTEROL SULFATE 3 ML AMPUL.NEB IH SCH ×3 (08:47→21:15)
[2019-04-17] MEDS: SERTRALINE 100 MG TAB PO SCH (09:48)
[2019-04-17] MEDS: SODIUM HYPOCHLORITE, DAKIN'S 1/2 STRENGTH (0.25%) 473 ML TOPICAL SOLN TP SCH ×2 (09:48→21:52)
[2019-04-17] MEDS: FAMOTIDINE 20 MG TAB PO SCH (09:48)
[2019-04-17] MEDS: risperiDONE 1 MG TAB PO SCH (09:48)
--- NOTE | 2019-04-17 10:07 | Progress Note ---
Assessment and Plan 63 y/o male with multiple medical issues admitted with altered mental status, acute respiratory failure requiring mechanical ventilation 1. Tolerating T-piece will continue. 2. Will ask RT about weaning the amount of flow 3. Consider speech consult for PMV trials. Patient had Peg tube long before trach but maybe, if he can tolerate PMV, maybe able to tolerate being capped. Currently has a number 8 cuffed trach. If Speech needs smaller cannula can ask RT to change out. 4. CM working on placement Subjective Date of service: 04/17/19 Principal diagnosis: Respiratory failure, acute on chronic systolic HF, ESRD Interval history: No acute events. Pulm status is stable. Objective Vital Signs - 12hr 04/16/19 04/17/19 04/17/19 23:47 03:41 08:00 Temperature 98.0 F 98.0 F 98.0 F Pulse Rate 110 H 93 H 86 Respiratory 18 20 18 Rate Blood Pressure 123/56 121/58 105/51 O2 Sat by Pulse 100 100 100 Oximetry Constitutional: no acute distress, alert Eyes: non-icteric ENT: oropharynx moist Neck: supple Effort: normal Ascultation: Bilateral: diminished breath sounds, other (coarse BS bilaterally) Percussion: Bilateral: not dull Cardiovascular: other (tachy, RR; no mrg) Gastrointestinal: normoactive bowel sounds, soft, non-tender, non-distended, other (ostomy in place, brown stool) Extremities: no cyanosis, no edema, pink and warm Neurologic: other (mild weakness LUE, o/w nonfocal) Psychiatric: other (unable to assess) CBC and BMP: 04/13/19 07:31 04/13/19 07:31 ABG, PT/INR, D-dimer: ABG POC ABG pH 7.510 (7.35-7.45) H 03/18/19 06:38 ABG pH 7.424 pH Units (7.350-7.450) 03/19/19 04:23 POC ABG pCO2 38.9 (35-45) 03/18/19 06:38 ABG pCO2 48.0 mm Hg 03/19/19 04:23 POC ABG pO2 164 (80-105) H 03/18/19 06:38 ABG pO2 78.3 mm Hg (80.0-90.0) L 03/19/19 04:23 POC ABG HCO3 31.0 (22-26 mml/L) 03/18/19 06:38 POC ABG Total CO2 32 (23-27mmol/L) 03/18/19 06:38 POC ABG O2 Sat 100 03/18/19 06:38 ABG O2 Saturation 97.0 % (95.0-99.0) 03/19/19 04:23 PT/INR, D-dimer PT 16.3 Sec. (12.2-14.9) H 03/01/19 09:39 INR 1.35 (0.87-1.13) H 03/01/19 09:39 2987.82 ng/mlDDU (0-234) H 02/22/19 05:54 Abnormal lab findings: Abnormal Labs 02/21/19 02/21/19 02/21/19 18:30 18:30 18:30 WBC RBC 3.26 L Hgb 8.8 L Hct 29.0 L MCH 27 L MCHC 30 L RDW 19.1 H Lymph % (Auto) 6.1 L [place] % (Auto) Eos % (Auto) Lymph # 0.4 L [place] # Eos # Seg Neutrophils % 86.2 H Seg Neuts % (Manual) Lymphocytes % (Manual) Eosinophils % (Manual) Seg Neutrophils # Lymphocytes # (Manual) Eosinophils # (Manual) PT INR D-Dimer POC ABG pH POC ABG pCO2 POC ABG pO2 ABG pO2 ABG HCO3 ABG Base Excess ABG Hemoglobin Oxyhemoglobin Sodium 133 L Potassium 3.3 L Chloride 93.1 L Carbon Dioxide 33 H BUN Creatinine Glucose 161 H POC Glucose Calcium Phosphorus Magnesium ALT Alkaline Phosphatase 136 H Total Creatine Kinase 37 L CK-MB (CK-2) Rel Index Troponin T 0.192 H* Albumin 2.4 L LDL Cholesterol Direct 36 L PTH Intact Salicylates Acetaminophen Crossmatch 02/21/19 02/21/19 02/21/19 18:42 20:04 20:04 WBC RBC Hgb Hct MCH MCHC RDW Lymph % (Auto) [place] % (Auto) Eos % (Auto) Lymph # [place] # Eos # Seg Neutrophils % Seg Neuts % (Manual) Lymphocytes % (Manual) Eosinophils % (Manual) Seg Neutrophils # Lymphocytes # (Manual) Eosinophils # (Manual) PT INR D-Dimer POC ABG pH POC ABG pCO2 56.7 H POC ABG pO2 291 H ABG pO2 ABG HCO3 ABG Base Excess ABG Hemoglobin Oxyhemoglobin Sodium Potassium Chloride Carbon Dioxide BUN Creatinine Glucose POC Glucose Calcium Phosphorus Magnesium ALT Alkaline Phosphatase Total Creatine Kinase CK-MB (CK-2) Rel Index Troponin T Albumin LDL Cholesterol Direct PTH Intact Salicylates < 0.3 L Acetaminophen < 5.0 L Crossmatch 02/21/19 02/22/19 02/22/19 22:35 03:42 03:42 WBC RBC 3.20 L Hgb 8.8 L Hct 27.6 L MCH MCHC RDW 18.9 H Lymph % (Auto) 7.4 L [place] % (Auto) Eos % (Auto) Lymph # 0.7 L [place] # Eos # Seg Neutrophils % 84.7 H Seg Neuts % (Manual) Lymphocytes % (Manual) Eosinophils % (Manual) Seg Neutrophils # Lymphocytes # (Manual) Eosinophils # (Manual) PT INR D-Dimer POC ABG pH POC ABG pCO2 POC ABG pO2 ABG pO2 ABG HCO3 ABG Base Excess ABG Hemoglobin Oxyhemoglobin Sodium 134 L Potassium 2.6 L* D Chloride Carbon Dioxide BUN Creatinine Glucose POC Glucose Calcium Phosphorus Magnesium ALT Alkaline Phosphatase Total Creatine Kinase CK-MB (CK-2) Rel Index 5.2 H Troponin T 0.202 H* Albumin LDL Cholesterol Direct PTH Intact Salicylates Acetaminophen Crossmatch 02/22/19 02/22/19 02/22/19 03:42 05:54 09:04 WBC RBC Hgb Hct MCH MCHC RDW Lymph % (Auto) [place] % (Auto) Eos % (Auto) Lymph # [place] # Eos # Seg Neutrophils % Seg Neuts % (Manual) Lymphocytes % (Manual) Eosinophils % (Manual) Seg Neutrophils # Lymphocytes # (Manual) Eosinophils # (Manual) PT INR D-Dimer 2987.82 H POC ABG pH 7.451 H POC ABG pCO2 POC ABG pO2 ABG pO2 ABG HCO3 ABG Base Excess ABG Hemoglobin Oxyhemoglobin Sodium Potassium Chloride Carbon Dioxide BUN Creatinine Glucose POC Glucose Calcium Phosphorus Magnesium ALT Alkaline Phosphatase Total Creatine Kinase CK-MB (CK-2) Rel Index 5.7 H Troponin T 0.193 H* Albumin LDL Cholesterol Direct PTH Intact Salicylates Acetaminophen Crossmatch 02/22/19 02/22/19 02/23/19 10:36 23:56 00:52 WBC RBC Hgb Hct MCH MCHC RDW Lymph % (Auto) [place] % (Auto) Eos % (Auto) Lymph # [place] # Eos # Seg Neutrophils % Seg Neuts % (Manual) Lymphocytes % (Manual) Eosinophils % (Manual) Seg Neutrophils # Lymphocytes # (Manual) Eosinophils # (Manual) PT INR D-Dimer POC ABG pH POC ABG pCO2 POC ABG pO2 ABG pO2 ABG HCO3 ABG Base Excess ABG Hemoglobin Oxyhemoglobin Sodium Potassium 3.1 L Chloride Carbon Dioxide BUN Creatinine Glucose POC Glucose 58 L 111 H Calcium Phosphorus Magnesium ALT Alkaline Phosphatase Total Creatine Kinase CK-MB (CK-2) Rel Index Troponin T Albumin LDL Cholesterol Direct PTH Intact Salicylates Acetaminophen Crossmatch 02/23/19 02/23/19 02/23/19 05:00 06:35 14:26 WBC RBC Hgb Hct MCH MCHC RDW Lymph % (Auto) [place] % (Auto) Eos % (Auto) Lymph # [place] # Eos # Seg Neutrophils % Seg Neuts % (Manual) Lymphocytes % (Manual) Eosinophils % (Manual) Seg Neutrophils # Lymphocytes # (Manual) Eosinophils # (Manual) PT INR D-Dimer POC ABG pH POC ABG pCO2 POC ABG pO2 ABG pO2 ABG HCO3 ABG Base Excess ABG Hemoglobin Oxyhemoglobin Sodium 135 L Potassium 3.1 L Chloride Carbon Dioxide BUN 21 H Creatinine 2.0 H Glucose 57 L POC Glucose 64 L 62 L Calcium Phosphorus Magnesium ALT Alkaline Phosphatase Total Creatine Kinase CK-MB (CK-2) Rel Index Troponin T Albumin LDL Cholesterol Direct PTH Intact Salicylates Acetaminophen Crossmatch 02/24/19 02/24/19 02/24/19 02:11 04:12 04:55 WBC RBC 2.84 L Hgb 7.8 L Hct 24.5 L MCH MCHC RDW 19.5 H Lymph % (Auto) [place] % (Auto) Eos % (Auto) Lymph # [place] # Eos # Seg Neutrophils % Seg Neuts % (Manual) Lymphocytes % (Manual) Eosinophils % (Manual) Seg Neutrophils # Lymphocytes # (Manual) Eosinophils # (Manual) PT INR D-Dimer POC ABG pH 7.511 H POC ABG pCO2 33.9 L POC ABG pO2 62 L ABG pO2 ABG HCO3 ABG Base Excess ABG Hemoglobin Oxyhemoglobin Sodium Potassium Chloride Carbon Dioxide BUN Creatinine Glucose POC Glucose 69 L Calcium Phosphorus Magnesium ALT Alkaline Phosphatase Total Creatine Kinase CK-MB (CK-2) Rel Index Troponin T Albumin LDL Cholesterol Direct PTH Intact Salicylates Acetaminophen Crossmatch 02/24/19 02/24/19 02/25/19 04:55 05:41 04:45 WBC RBC Hgb Hct MCH MCHC RDW Lymph % (Auto) [place] % (Auto) Eos % (Auto) Lymph # [place] # Eos # Seg Neutrophils % Seg Neuts % (Manual) Lymphocytes % (Manual) Eosinophils % (Manual) Seg Neutrophils # Lymphocytes # (Manual) Eosinophils # (Manual) PT INR D-Dimer POC ABG pH 7.466 H POC ABG pCO2 POC ABG pO2 75 L ABG pO2 ABG HCO3 ABG Base Excess ABG Hemoglobin Oxyhemoglobin Sodium Potassium Chloride Carbon Dioxide BUN Creatinine 1.8 H Glucose 73 L POC Glucose 127 H Calcium Phosphorus Magnesium ALT Alkaline Phosphatase Total Creatine Kinase CK-MB (CK-2) Rel Index Troponin T Albumin LDL Cholesterol Direct PTH Intact Salicylates Acetaminophen Crossmatch 02/25/19 02/25/19 02/26/19 16:34 21:33 03:45 WBC RBC 2.96 L Hgb 8.0 L Hct 25.8 L MCH 27 L MCHC 31 L RDW 20.0 H Lymph % (Auto) [place] % (Auto) Eos % (Auto) Lymph # [place] # Eos # Seg Neutrophils % Seg Neuts % (Manual) Lymphocytes % (Manual) Eosinophils % (Manual) Seg Neutrophils # Lymphocytes # (Manual) Eosinophils # (Manual) PT INR D-Dimer POC ABG pH POC ABG pCO2 POC ABG pO2 ABG pO2 ABG HCO3 ABG Base Excess ABG Hemoglobin Oxyhemoglobin Sodium Potassium Chloride Carbon Dioxide BUN Creatinine Glucose POC Glucose 141 H 106 H Calcium Phosphorus Magnesium ALT Alkaline Phosphatase Total Creatine Kinase CK-MB (CK-2) Rel Index Troponin T Albumin LDL Cholesterol Direct PTH Intact Salicylates Acetaminophen Crossmatch 02/26/19 02/26/19 02/26/19 03:45 04:13 07:53 WBC RBC Hgb Hct MCH MCHC RDW Lymph % (Auto) [place] % (Auto) Eos % (Auto) Lymph # [place] # Eos # Seg Neutrophils % Seg Neuts % (Manual) Lymphocytes % (Manual) Eosinophils % (Manual) Seg Neutrophils # Lymphocytes # (Manual) Eosinophils # (Manual) PT INR D-Dimer POC ABG pH 7.470 H POC ABG pCO2 POC ABG pO2 ABG pO2 ABG HCO3 ABG Base Excess ABG Hemoglobin Oxyhemoglobin Sodium Potassium Chloride Carbon Dioxide BUN Creatinine 1.8 H Glucose POC Glucose 110 H Calcium Phosphorus Magnesium ALT Alkaline Phosphatase Total Creatine Kinase CK-MB (CK-2) Rel Index Troponin T Albumin LDL Cholesterol Direct PTH Intact Salicylates Acetaminophen Crossmatch 02/26/19 02/26/19 02/27/19 11:56 17:43 00:12 WBC RBC Hgb Hct MCH MCHC RDW Lymph % (Auto) [place] % (Auto) Eos % (Auto) Lymph # [place] # Eos # Seg Neutrophils % Seg Neuts % (Manual) Lymphocytes % (Manual) Eosinophils % (Manual) Seg Neutrophils # Lymphocytes # (Manual) Eosinophils # (Manual) PT INR D-Dimer POC ABG pH POC ABG pCO2 POC ABG pO2 ABG pO2 ABG HCO3 ABG Base Excess ABG Hemoglobin Oxyhemoglobin Sodium Potassium Chloride Carbon Dioxide BUN Creatinine Glucose POC Glucose 112 H 127 H 127 H Calcium Phosphorus Magnesium ALT Alkaline Phosphatase Total Creatine Kinase CK-MB (CK-2) Rel Index Troponin T Albumin LDL Cholesterol Direct PTH Intact Salicylates Acetaminophen Crossmatch 02/27/19 02/27/19 02/27/19 04:35 13:15 18:02 WBC RBC Hgb Hct MCH MCHC RDW Lymph % (Auto) [place] % (Auto) Eos % (Auto) Lymph # [place] # Eos # Seg Neutrophils % Seg Neuts % (Manual) Lymphocytes % (Manual) Eosinophils % (Manual) Seg Neutrophils # Lymphocytes # (Manual) Eosinophils # (Manual) PT INR D-Dimer POC ABG pH 7.483 H POC ABG pCO2 POC ABG pO2 61 L ABG pO2 ABG HCO3 ABG Base Excess ABG Hemoglobin Oxyhemoglobin Sodium Potassium Chloride Carbon Dioxide BUN Creatinine Glucose POC Glucose 143 H 106 H Calcium Phosphorus Magnesium ALT Alkaline Phosphatase Total Creatine Kinase CK-MB (CK-2) Rel Index Troponin T Albumin LDL Cholesterol Direct PTH Intact Salicylates Acetaminophen Crossmatch 02/28/19 02/28/19 02/28/19 05:50 11:59 17:52 WBC RBC Hgb Hct MCH MCHC RDW Lymph % (Auto) [place] % (Auto) Eos % (Auto) Lymph # [place] # Eos # Seg Neutrophils % Seg Neuts % (Manual) Lymphocytes % (Manual) Eosinophils % (Manual) Seg Neutrophils # Lymphocytes # (Manual) Eosinophils # (Manual) PT INR D-Dimer POC ABG pH POC ABG pCO2 POC ABG pO2 ABG pO2 ABG HCO3 ABG Base Excess ABG Hemoglobin Oxyhemoglobin Sodium Potassium Chloride Carbon Dioxide BUN Creatinine Glucose POC Glucose 134 H 128 H 142 H Calcium Phosphorus Magnesium ALT Alkaline Phosphatase Total Creatine Kinase CK-MB (CK-2) Rel Index Troponin T Albumin LDL Cholesterol Direct PTH Intact Salicylates Acetaminophen Crossmatch 02/28/19 03/01/19 03/01/19 23:13 05:40 09:39 WBC RBC Hgb Hct MCH MCHC RDW Lymph % (Auto) [place] % (Auto) Eos % (Auto) Lymph # [place] # Eos # Seg Neutrophils % Seg Neuts % (Manual) Lymphocytes % (Manual) Eosinophils % (Manual) Seg Neutrophils # Lymphocytes # (Manual) Eosinophils # (Manual) PT 16.3 H INR 1.35 H D-Dimer POC ABG pH POC ABG pCO2 POC ABG pO2 ABG pO2 ABG HCO3 ABG Base Excess ABG Hemoglobin Oxyhemoglobin Sodium Potassium Chloride Carbon Dioxide BUN Creatinine Glucose POC Glucose 112 H 111 H Calcium Phosphorus Magnesium ALT Alkaline Phosphatase Total Creatine Kinase CK-MB (CK-2) Rel Index Troponin T Albumin LDL Cholesterol Direct PTH Intact Salicylates Acetaminophen Crossmatch 03/01/19 03/01/19 03/01/19 11:56 13:54 17:59 WBC RBC Hgb Hct MCH MCHC RDW Lymph % (Auto) [place] % (Auto) Eos % (Auto) Lymph # [place] # Eos # Seg Neutrophils % Seg Neuts % (Manual) Lymphocytes % (Manual) Eosinophils % (Manual) Seg Neutrophils # Lymphocytes # (Manual) Eosinophils # (Manual) PT INR D-Dimer POC ABG pH POC ABG pCO2 POC ABG pO2 ABG pO2 ABG HCO3 ABG Base Excess ABG Hemoglobin Oxyhemoglobin Sodium Potassium Chloride Carbon Dioxide BUN 33 H Creatinine 2.8 H D Glucose 176 H POC Glucose 199 H 147 H Calcium Phosphorus Magnesium ALT Alkaline Phosphatase Total Creatine Kinase CK-MB (CK-2) Rel Index Troponin T Albumin LDL Cholesterol Direct PTH Intact Salicylates Acetaminophen Crossmatch 03/02/19 03/02/19 03/02/19 05:15 05:15 05:15 WBC RBC 2.73 L Hgb 7.4 L Hct 23.0 L MCH 27 L MCHC RDW 19.9 H Lymph % (Auto) [place] % (Auto) 7.9 H Eos % (Auto) 7.6 H Lymph # 1.0 L [place] # Eos # 0.5 H Seg Neutrophils % Seg Neuts % (Manual) Lymphocytes % (Manual) Eosinophils % (Manual) Seg Neutrophils # Lymphocytes # (Manual) Eosinophils # (Manual) PT INR D-Dimer POC ABG pH POC ABG pCO2 POC ABG pO2 ABG pO2 ABG HCO3 ABG Base Excess ABG Hemoglobin Oxyhemoglobin Sodium Potassium Chloride Carbon Dioxide BUN 43 H Creatinine 3.2 H Glucose POC Glucose Calcium Phosphorus 2.30 L Magnesium ALT Alkaline Phosphatase Total Creatine Kinase CK-MB (CK-2) Rel Index Troponin T Albumin LDL Cholesterol Direct PTH Intact 267.6 H Salicylates Acetaminophen Crossmatch 03/02/19 03/02/19 03/03/19 12:32 18:20 13:30 WBC RBC Hgb Hct MCH MCHC RDW Lymph % (Auto) [place] % (Auto) Eos % (Auto) Lymph # [place] # Eos # Seg Neutrophils % Seg Neuts % (Manual) Lymphocytes % (Manual) Eosinophils % (Manual) Seg Neutrophils # Lymphocytes # (Manual) Eosinophils # (Manual) PT INR D-Dimer POC ABG pH POC ABG pCO2 POC ABG pO2 ABG pO2 ABG HCO3 ABG Base Excess ABG Hemoglobin Oxyhemoglobin Sodium Potassium Chloride 97.3 L Carbon Dioxide BUN 26 H Creatinine 2.2 H Glucose 73 L POC Glucose 111 H 156 H Calcium Phosphorus Magnesium ALT Alkaline Phosphatase Total Creatine Kinase CK-MB (CK-2) Rel Index Troponin T Albumin LDL Cholesterol Direct PTH Intact Salicylates Acetaminophen Crossmatch 03/04/19 03/04/19 03/04/19 00:02 05:37 05:40 WBC RBC 2.63 L Hgb 7.2 L Hct 22.2 L MCH MCHC RDW 20.2 H Lymph % (Auto) 10.5 L [place] % (Auto) Eos % (Auto) 4.6 H Lymph # 0.7 L [place] # Eos # Seg Neutrophils % 76.9 H Seg Neuts % (Manual) Lymphocytes % (Manual) Eosinophils % (Manual) Seg Neutrophils # Lymphocytes # (Manual) Eosinophils # (Manual) PT INR D-Dimer POC ABG pH POC ABG pCO2 POC ABG pO2 ABG pO2 ABG HCO3 ABG Base Excess ABG Hemoglobin Oxyhemoglobin Sodium Potassium Chloride Carbon Dioxide BUN Creatinine Glucose POC Glucose 136 H 123 H Calcium Phosphorus Magnesium ALT Alkaline Phosphatase Total Creatine Kinase CK-MB (CK-2) Rel Index Troponin T Albumin LDL Cholesterol Direct PTH Intact Salicylates Acetaminophen Crossmatch 03/04/19 03/04/19 03/04/19 05:40 11:39 23:20 WBC RBC Hgb Hct MCH MCHC RDW Lymph % (Auto) [place] % (Auto) Eos % (Auto) Lymph # [place] # Eos # Seg Neutrophils % Seg Neuts % (Manual) Lymphocytes % (Manual) Eosinophils % (Manual) Seg Neutrophils # Lymphocytes # (Manual) Eosinophils # (Manual) PT INR D-Dimer POC ABG pH POC ABG pCO2 POC ABG pO2 ABG pO2 ABG HCO3 ABG Base Excess ABG Hemoglobin Oxyhemoglobin Sodium Potassium Chloride Carbon Dioxide BUN 34 H Creatinine 2.7 H Glucose 114 H POC Glucose 175 H 151 H Calcium Phosphorus Magnesium ALT Alkaline Phosphatase Total Creatine Kinase CK-MB (CK-2) Rel Index Troponin T Albumin LDL Cholesterol Direct PTH Intact Salicylates Acetaminophen Crossmatch 03/05/19 03/05/19 03/05/19 05:37 12:08 17:11 WBC RBC Hgb Hct MCH MCHC RDW Lymph % (Auto) [place] % (Auto) Eos % (Auto) Lymph # [place] # Eos # Seg Neutrophils % Seg Neuts % (Manual) Lymphocytes % (Manual) Eosinophils % (Manual) Seg Neutrophils # Lymphocytes # (Manual) Eosinophils # (Manual) PT INR D-Dimer POC ABG pH POC ABG pCO2 POC ABG pO2 ABG pO2 ABG HCO3 ABG Base Excess ABG Hemoglobin Oxyhemoglobin Sodium Potassium Chloride Carbon Dioxide BUN Creatinine Glucose POC Glucose 134 H 135 H 135 H Calcium Phosphorus Magnesium ALT Alkaline Phosphatase Total Creatine Kinase CK-MB (CK-2) Rel Index Troponin T Albumin LDL Cholesterol Direct PTH Intact Salicylates Acetaminophen Crossmatch 03/06/19 03/06/19 03/06/19 00:16 13:05 18:09 WBC RBC Hgb Hct MCH MCHC RDW Lymph % (Auto) [place] % (Auto) Eos % (Auto) Lymph # [place] # Eos # Seg Neutrophils % Seg Neuts % (Manual) Lymphocytes % (Manual) Eosinophils % (Manual) Seg Neutrophils # Lymphocytes # (Manual) Eosinophils # (Manual) PT INR D-Dimer POC ABG pH POC ABG pCO2 POC ABG pO2 ABG pO2 ABG HCO3 ABG Base Excess ABG Hemoglobin Oxyhemoglobin Sodium Potassium Chloride Carbon Dioxide BUN Creatinine Glucose POC Glucose 117 H 113 H 131 H Calcium Phosphorus Magnesium ALT Alkaline Phosphatase Total Creatine Kinase CK-MB (CK-2) Rel Index Troponin T Albumin LDL Cholesterol Direct PTH Intact Salicylates Acetaminophen Crossmatch 03/07/19 03/08/19 03/08/19 05:25 05:33 16:00 WBC RBC 2.44 L Hgb 6.6 L Hct 20.8 L MCH 27 L MCHC RDW 19.2 H Lymph % (Auto) [place] % (Auto) Eos % (Auto) 8.6 H Lymph # 0.8 L [place] # Eos # 0.5 H Seg Neutrophils % 70.7 H Seg Neuts % (Manual) Lymphocytes % (Manual) Eosinophils % (Manual) Seg Neutrophils # Lymphocytes # (Manual) Eosinophils # (Manual) PT INR D-Dimer POC ABG pH POC ABG pCO2 POC ABG pO2 ABG pO2 ABG HCO3 ABG Base Excess ABG Hemoglobin Oxyhemoglobin Sodium Potassium Chloride Carbon Dioxide BUN Creatinine Glucose POC Glucose 106 H 108 H Calcium Phosphorus Magnesium ALT Alkaline Phosphatase Total Creatine Kinase CK-MB (CK-2) Rel Index Troponin T Albumin LDL Cholesterol Direct PTH Intact Salicylates Acetaminophen Crossmatch 03/08/19 03/08/19 03/08/19 16:00 18:38 Unknown WBC RBC Hgb Hct MCH MCHC RDW Lymph % (Auto) [place] % (Auto) Eos % (Auto) Lymph # [place] # Eos # Seg Neutrophils % Seg Neuts % (Manual) Lymphocytes % (Manual) Eosinophils % (Manual) Seg Neutrophils # Lymphocytes # (Manual) Eosinophils # (Manual) PT INR D-Dimer POC ABG pH POC ABG pCO2 POC ABG pO2 ABG pO2 ABG HCO3 ABG Base Excess ABG Hemoglobin Oxyhemoglobin Sodium Potassium 5.4 H D Chloride Carbon Dioxide BUN 47 H Creatinine 2.6 H Glucose POC Glucose 123 H Calcium Phosphorus Magnesium ALT < 5 L Alkaline Phosphatase Total Creatine Kinase CK-MB (CK-2) Rel Index Troponin T Albumin 2.2 L LDL Cholesterol Direct PTH Intact Salicylates Acetaminophen Crossmatch See Detail 03/09/19 03/09/19 03/09/19 10:48 12:28 13:53 WBC RBC 2.85 L Hgb 7.7 L Hct 24.2 L MCH 27 L MCHC RDW 18.7 H Lymph % (Auto) [place] % (Auto) Eos % (Auto) Lymph # [place] # Eos # Seg Neutrophils % Seg Neuts % (Manual) Lymphocytes % (Manual) Eosinophils % (Manual) Seg Neutrophils # Lymphocytes # (Manual) Eosinophils # (Manual) PT INR D-Dimer POC ABG pH POC ABG pCO2 POC ABG pO2 ABG pO2 ABG HCO3 30.5 H ABG Base Excess 5.6 H ABG Hemoglobin 8.1 L Oxyhemoglobin 93.8 L Sodium Potassium Chloride Carbon Dioxide BUN Creatinine Glucose POC Glucose 114 H Calcium Phosphorus Magnesium ALT Alkaline Phosphatase Total Creatine Kinase CK-MB (CK-2) Rel Index Troponin T Albumin LDL Cholesterol Direct PTH Intact Salicylates Acetaminophen Crossmatch 03/09/19 03/09/19 03/10/19 17:58 23:53 12:01 WBC RBC Hgb Hct MCH MCHC RDW Lymph % (Auto) [place] % (Auto) Eos % (Auto) Lymph # [place] # Eos # Seg Neutrophils % Seg Neuts % (Manual) Lymphocytes % (Manual) Eosinophils % (Manual) Seg Neutrophils # Lymphocytes # (Manual) Eosinophils # (Manual) PT INR D-Dimer POC ABG pH POC ABG pCO2 POC ABG pO2 ABG pO2 ABG HCO3 ABG Base Excess ABG Hemoglobin Oxyhemoglobin Sodium Potassium Chloride Carbon Dioxide BUN Creatinine Glucose POC Glucose 108 H 128 H 144 H Calcium Phosphorus Magnesium ALT Alkaline Phosphatase Total Creatine Kinase CK-MB (CK-2) Rel Index Troponin T Albumin LDL Cholesterol Direct PTH Intact Salicylates Acetaminophen Crossmatch 03/10/19 03/11/19 03/11/19 16:50 00:24 05:02 WBC RBC Hgb Hct MCH MCHC RDW Lymph % (Auto) [place] % (Auto) Eos % (Auto) Lymph # [place] # Eos # Seg Neutrophils % Seg Neuts % (Manual) Lymphocytes % (Manual) Eosinophils % (Manual) Seg Neutrophils # Lymphocytes # (Manual) Eosinophils # (Manual) PT INR D-Dimer POC ABG pH POC ABG pCO2 POC ABG pO2 ABG pO2 ABG HCO3 ABG Base Excess ABG Hemoglobin Oxyhemoglobin Sodium Potassium Chloride Carbon Dioxide BUN Creatinine Glucose POC Glucose 147 H 123 H 120 H Calcium Phosphorus Magnesium ALT Alkaline Phosphatase Total Creatine Kinase CK-MB (CK-2) Rel Index Troponin T Albumin LDL Cholesterol Direct PTH Intact Salicylates Acetaminophen Crossmatch 03/11/19 03/11/19 03/11/19 11:56 12:20 18:37 WBC RBC Hgb Hct MCH MCHC RDW Lymph % (Auto) [place] % (Auto) Eos % (Auto) Lymph # [place] # Eos # Seg Neutrophils % Seg Neuts % (Manual) Lymphocytes % (Manual) Eosinophils % (Manual) Seg Neutrophils # Lymphocytes # (Manual) Eosinophils # (Manual) PT INR D-Dimer POC ABG pH POC ABG pCO2 POC ABG pO2 ABG pO2 ABG HCO3 ABG Base Excess ABG Hemoglobin Oxyhemoglobin Sodium Potassium 5.2 H Chloride Carbon Dioxide BUN Creatinine Glucose POC Glucose 123 H 125 H Calcium Phosphorus Magnesium ALT Alkaline Phosphatase Total Creatine Kinase CK-MB (CK-2) Rel Index Troponin T Albumin LDL Cholesterol Direct PTH Intact Salicylates Acetaminophen Crossmatch 03/11/19 03/12/19 03/12/19 22:52 12:04 18:25 WBC RBC Hgb Hct MCH MCHC RDW Lymph % (Auto) [place] % (Auto) Eos % (Auto) Lymph # [place] # Eos # Seg Neutrophils % Seg Neuts % (Manual) Lymphocytes % (Manual) Eosinophils % (Manual) Seg Neutrophils # Lymphocytes # (Manual) Eosinophils # (Manual) PT INR D-Dimer POC ABG pH POC ABG pCO2 POC ABG pO2 ABG pO2 ABG HCO3 ABG Base Excess ABG Hemoglobin Oxyhemoglobin Sodium Potassium Chloride Carbon Dioxide BUN Creatinine Glucose POC Glucose 110 H 106 H 118 H Calcium Phosphorus Magnesium ALT Alkaline Phosphatase Total Creatine Kinase CK-MB (CK-2) Rel Index Troponin T Albumin LDL Cholesterol Direct PTH Intact Salicylates Acetaminophen Crossmatch 03/12/19 03/13/19 03/13/19 23:36 04:38 04:38 WBC RBC 2.95 L Hgb 7.9 L Hct 24.9 L MCH 27 L MCHC RDW 19.9 H Lymph % (Auto) 11.1 L [place] % (Auto) 8.1 H Eos % (Auto) 4.4 H Lymph # 0.9 L [place] # Eos # Seg Neutrophils % 75.4 H Seg Neuts % (Manual) Lymphocytes % (Manual) Eosinophils % (Manual) Seg Neutrophils # Lymphocytes # (Manual) Eosinophils # (Manual) PT INR D-Dimer POC ABG pH POC ABG pCO2 POC ABG pO2 ABG pO2 ABG HCO3 ABG Base Excess ABG Hemoglobin Oxyhemoglobin Sodium 136 L Potassium 5.1 H Chloride 93.8 L Carbon Dioxide BUN 48 H Creatinine 2.7 H Glucose 102 H POC Glucose 115 H Calcium Phosphorus Magnesium ALT < 5 L Alkaline Phosphatase 143 H Total Creatine Kinase CK-MB (CK-2) Rel Index Troponin T Albumin 2.5 L LDL Cholesterol Direct PTH Intact Salicylates Acetaminophen Crossmatch 03/13/19 03/13/19 03/13/19 05:33 13:37 18:03 WBC RBC Hgb Hct MCH MCHC RDW Lymph % (Auto) [place] % (Auto) Eos % (Auto) Lymph # [place] # Eos # Seg Neutrophils % Seg Neuts % (Manual) Lymphocytes % (Manual) Eosinophils % (Manual) Seg Neutrophils # Lymphocytes # (Manual) Eosinophils # (Manual) PT INR D-Dimer POC ABG pH POC ABG pCO2 POC ABG pO2 ABG pO2 ABG HCO3 ABG Base Excess ABG Hemoglobin Oxyhemoglobin Sodium Potassium Chloride Carbon Dioxide BUN Creatinine Glucose POC Glucose 140 H 150 H 158 H Calcium Phosphorus Magnesium ALT Alkaline Phosphatase Total Creatine Kinase CK-MB (CK-2) Rel Index Troponin T Albumin LDL Cholesterol Direct PTH Intact Salicylates Acetaminophen Crossmatch 03/13/19 03/14/19 03/14/19 23:32 05:24 12:20 WBC RBC Hgb Hct MCH MCHC RDW Lymph % (Auto) [place] % (Auto) Eos % (Auto) Lymph # [place] # Eos # Seg Neutrophils % Seg Neuts % (Manual) Lymphocytes % (Manual) Eosinophils % (Manual) Seg Neutrophils # Lymphocytes # (Manual) Eosinophils # (Manual) PT INR D-Dimer POC ABG pH POC ABG pCO2 POC ABG pO2 ABG pO2 ABG HCO3 ABG Base Excess ABG Hemoglobin Oxyhemoglobin Sodium Potassium Chloride Carbon Dioxide BUN Creatinine Glucose POC Glucose 162 H 146 H 127 H Calcium Phosphorus Magnesium ALT Alkaline Phosphatase Total Creatine Kinase CK-MB (CK-2) Rel Index Troponin T Albumin LDL Cholesterol Direct PTH Intact Salicylates Acetaminophen Crossmatch 03/14/19 03/14/19 03/15/19 18:05 23:57 04:38 WBC 12.8 H RBC 3.11 L Hgb 8.1 L Hct 26.5 L MCH 26 L MCHC 31 L RDW 19.7 H Lymph % (Auto) 4.4 L [place] % (Auto) 7.4 H Eos % (Auto) Lymph # 0.6 L [place] # 0.9 H Eos # Seg Neutrophils % 87.3 H Seg Neuts % (Manual) Lymphocytes % (Manual) Eosinophils % (Manual) Seg Neutrophils # 11.2 H Lymphocytes # (Manual) Eosinophils # (Manual) PT INR D-Dimer POC ABG pH POC ABG pCO2 POC ABG pO2 ABG pO2 ABG HCO3 ABG Base Excess ABG Hemoglobin Oxyhemoglobin Sodium Potassium Chloride Carbon Dioxide BUN Creatinine Glucose POC Glucose 142 H 155 H Calcium Phosphorus Magnesium ALT Alkaline Phosphatase Total Creatine Kinase CK-MB (CK-2) Rel Index Troponin T Albumin LDL Cholesterol Direct PTH Intact Salicylates Acetaminophen Crossmatch 03/15/19 03/15/19 03/15/19 04:38 05:31 11:32 WBC RBC Hgb Hct MCH MCHC RDW Lymph % (Auto) [place] % (Auto) Eos % (Auto) Lymph # [place] # Eos # Seg Neutrophils % Seg Neuts % (Manual) Lymphocytes % (Manual) Eosinophils % (Manual) Seg Neutrophils # Lymphocytes # (Manual) Eosinophils # (Manual) PT INR D-Dimer POC ABG pH POC ABG pCO2 POC ABG pO2 ABG pO2 ABG HCO3 ABG Base Excess ABG Hemoglobin Oxyhemoglobin Sodium 135 L Potassium Chloride 91.9 L Carbon Dioxide BUN 54 H Creatinine 2.8 H Glucose 128 H POC Glucose 160 H 109 H Calcium 11.1 H Phosphorus Magnesium ALT Alkaline Phosphatase 161 H Total Creatine Kinase CK-MB (CK-2) Rel Index Troponin T Albumin 2.3 L LDL Cholesterol Direct PTH Intact Salicylates Acetaminophen Crossmatch 03/15/19 03/15/19 03/16/19 18:15 23:41 05:40 WBC RBC Hgb Hct MCH MCHC RDW Lymph % (Auto) [place] % (Auto) Eos % (Auto) Lymph # [place] # Eos # Seg Neutrophils % Seg Neuts % (Manual) Lymphocytes % (Manual) Eosinophils % (Manual) Seg Neutrophils # Lymphocytes # (Manual) Eosinophils # (Manual) PT INR D-Dimer POC ABG pH POC ABG pCO2 POC ABG pO2 ABG pO2 ABG HCO3 ABG Base Excess ABG Hemoglobin Oxyhemoglobin Sodium Potassium Chloride Carbon Dioxide BUN Creatinine Glucose POC Glucose 151 H 110 H 163 H Calcium Phosphorus Magnesium ALT Alkaline Phosphatase Total Creatine Kinase CK-MB (CK-2) Rel Index Troponin T Albumin LDL Cholesterol Direct PTH Intact Salicylates Acetaminophen Crossmatch 03/16/19 03/16/19 03/16/19 11:55 17:04 23:58 WBC RBC Hgb Hct MCH MCHC RDW Lymph % (Auto) [place] % (Auto) Eos % (Auto) Lymph # [place] # Eos # Seg Neutrophils % Seg Neuts % (Manual) Lymphocytes % (Manual) Eosinophils % (Manual) Seg Neutrophils # Lymphocytes # (Manual) Eosinophils # (Manual) PT INR D-Dimer POC ABG pH POC ABG pCO2 POC ABG pO2 ABG pO2 ABG HCO3 ABG Base Excess ABG Hemoglobin Oxyhemoglobin Sodium Potassium Chloride Carbon Dioxide BUN Creatinine Glucose POC Glucose 114 H 147 H 192 H Calcium Phosphorus Magnesium ALT Alkaline Phosphatase Total Creatine Kinase CK-MB (CK-2) Rel Index Troponin T Albumin LDL Cholesterol Direct PTH Intact Salicylates Acetaminophen Crossmatch 03/17/19 03/17/19 03/17/19 05:53 11:17 17:01 WBC RBC Hgb Hct MCH MCHC RDW Lymph % (Auto) [place] % (Auto) Eos % (Auto) Lymph # [place] # Eos # Seg Neutrophils % Seg Neuts % (Manual) Lymphocytes % (Manual) Eosinophils % (Manual) Seg Neutrophils # Lymphocytes # (Manual) Eosinophils # (Manual) PT INR D-Dimer POC ABG pH POC ABG pCO2 POC ABG pO2 ABG pO2 ABG HCO3 ABG Base Excess ABG Hemoglobin Oxyhemoglobin Sodium Potassium Chloride Carbon Dioxide BUN Creatinine Glucose POC Glucose 151 H 161 H 152 H Calcium Phosphorus Magnesium ALT Alkaline Phosphatase Total Creatine Kinase CK-MB (CK-2) Rel Index Troponin T Albumin LDL Cholesterol Direct PTH Intact Salicylates Acetaminophen Crossmatch 03/17/19 03/18/19 03/18/19 21:47 04:15 04:44 WBC RBC Hgb Hct MCH MCHC RDW Lymph % (Auto) [place] % (Auto) Eos % (Auto) Lymph # [place] # Eos # Seg Neutrophils % Seg Neuts % (Manual) Lymphocytes % (Manual) Eosinophils % (Manual) Seg Neutrophils # Lymphocytes # (Manual) Eosinophils # (Manual) PT INR D-Dimer POC ABG pH POC ABG pCO2 POC ABG pO2 ABG pO2 102.8 H ABG HCO3 28.3 H ABG Base Excess ABG Hemoglobin 10.4 L Oxyhemoglobin 94.5 L Sodium Potassium Chloride Carbon Dioxide BUN Creatinine Glucose POC Glucose 170 H 150 H Calcium Phosphorus Magnesium ALT Alkaline Phosphatase Total Creatine Kinase CK-MB (CK-2) Rel Index Troponin T Albumin LDL Cholesterol Direct PTH Intact Salicylates Acetaminophen Crossmatch 03/18/19 03/18/19 03/18/19 06:38 12:12 17:47 WBC RBC Hgb Hct MCH MCHC RDW Lymph % (Auto) [place] % (Auto) Eos % (Auto) Lymph # [place] # Eos # Seg Neutrophils % Seg Neuts % (Manual) Lymphocytes % (Manual) Eosinophils % (Manual) Seg Neutrophils # Lymphocytes # (Manual) Eosinophils # (Manual) PT INR D-Dimer POC ABG pH 7.510 H POC ABG pCO2 POC ABG pO2 164 H ABG pO2 ABG HCO3 ABG Base Excess ABG Hemoglobin Oxyhemoglobin Sodium Potassium Chloride Carbon Dioxide BUN Creatinine Glucose POC Glucose 145 H 149 H Calcium Phosphorus Magnesium ALT Alkaline Phosphatase Total Creatine Kinase CK-MB (CK-2) Rel Index Troponin T Albumin LDL Cholesterol Direct PTH Intact Salicylates Acetaminophen Crossmatch 03/18/19 03/19/19 03/19/19 23:25 01:11 04:23 WBC 15.6 H RBC 2.51 L Hgb 6.5 L Hct 21.6 L MCH 26 L MCHC 30 L RDW 19.8 H Lymph % (Auto) 6.0 L [place] % (Auto) Eos % (Auto) Lymph # 0.9 L [place] # 1.0 H Eos # Seg Neutrophils % 85.5 H Seg Neuts % (Manual) Lymphocytes % (Manual) Eosinophils % (Manual) Seg Neutrophils # 13.4 H Lymphocytes # (Manual) Eosinophils # (Manual) PT INR D-Dimer POC ABG pH POC ABG pCO2 POC ABG pO2 ABG pO2 78.3 L ABG HCO3 30.7 H ABG Base Excess 5.8 H ABG Hemoglobin 5.8 L Oxyhemoglobin 94.6 L Sodium Potassium Chloride Carbon Dioxide BUN Creatinine Glucose POC Glucose 190 H Calcium Phosphorus Magnesium ALT Alkaline Phosphatase Total Creatine Kinase CK-MB (CK-2) Rel Index Troponin T Albumin LDL Cholesterol Direct PTH Intact Salicylates Acetaminophen Crossmatch 03/19/19 03/19/19 03/19/19 05:22 05:35 08:54 WBC RBC Hgb Hct MCH MCHC RDW Lymph % (Auto) [place] % (Auto) Eos % (Auto) Lymph # [place] # Eos # Seg Neutrophils % Seg Neuts % (Manual) Lymphocytes % (Manual) Eosinophils % (Manual) Seg Neutrophils # Lymphocytes # (Manual) Eosinophils # (Manual) PT INR D-Dimer POC ABG pH POC ABG pCO2 POC ABG pO2 ABG pO2 ABG HCO3 ABG Base Excess ABG Hemoglobin Oxyhemoglobin Sodium Potassium Chloride Carbon Dioxide BUN Creatinine Glucose POC Glucose 167 H Calcium Phosphorus Magnesium ALT Alkaline Phosphatase Total Creatine Kinase CK-MB (CK-2) Rel Index Troponin T Albumin LDL Cholesterol Direct PTH Intact Salicylates Acetaminophen Crossmatch See Detail See Detail 03/19/19 03/19/19 03/19/19 12:36 17:02 23:25 WBC RBC Hgb Hct MCH MCHC RDW Lymph % (Auto) [place] % (Auto) Eos % (Auto) Lymph # [place] # Eos # Seg Neutrophils % Seg Neuts % (Manual) Lymphocytes % (Manual) Eosinophils % (Manual) Seg Neutrophils # Lymphocytes # (Manual) Eosinophils # (Manual) PT INR D-Dimer POC ABG pH POC ABG pCO2 POC ABG pO2 ABG pO2 ABG HCO3 ABG Base Excess ABG Hemoglobin Oxyhemoglobin Sodium Potassium Chloride Carbon Dioxide BUN Creatinine Glucose POC Glucose 167 H 135 H 136 H Calcium Phosphorus Magnesium ALT Alkaline Phosphatase Total Creatine Kinase CK-MB (CK-2) Rel Index Troponin T Albumin LDL Cholesterol Direct PTH Intact Salicylates Acetaminophen Crossmatch 03/20/19 03/20/19 03/20/19 05:38 08:40 08:40 WBC RBC 2.61 L Hgb 7.1 L Hct 22.0 L MCH 27 L MCHC RDW 19.6 H Lymph % (Auto) 8.2 L [place] % (Auto) 8.3 H Eos % (Auto) 5.7 H Lymph # 0.8 L [place] # Eos # 0.5 H Seg Neutrophils % 77.3 H Seg Neuts % (Manual) Lymphocytes % (Manual) Eosinophils % (Manual) Seg Neutrophils # Lymphocytes # (Manual) Eosinophils # (Manual) PT INR D-Dimer POC ABG pH POC ABG pCO2 POC ABG pO2 ABG pO2 ABG HCO3 ABG Base Excess ABG Hemoglobin Oxyhemoglobin Sodium Potassium Chloride 95.9 L Carbon Dioxide BUN 69 H Creatinine 2.8 H Glucose 115 H POC Glucose 134 H Calcium 10.5 H Phosphorus Magnesium ALT Alkaline Phosphatase Total Creatine Kinase CK-MB (CK-2) Rel Index Troponin T Albumin LDL Cholesterol Direct PTH Intact Salicylates Acetaminophen Crossmatch 03/20/19 03/20/19 03/20/19 12:13 18:04 23:49 WBC RBC Hgb Hct MCH MCHC RDW Lymph % (Auto) [place] % (Auto) Eos % (Auto) Lymph # [place] # Eos # Seg Neutrophils % Seg Neuts % (Manual) Lymphocytes % (Manual) Eosinophils % (Manual) Seg Neutrophils # Lymphocytes # (Manual) Eosinophils # (Manual) PT INR D-Dimer POC ABG pH POC ABG pCO2 POC ABG pO2 ABG pO2 ABG HCO3 ABG Base Excess ABG Hemoglobin Oxyhemoglobin Sodium Potassium Chloride Carbon Dioxide BUN Creatinine Glucose POC Glucose 144 H 165 H 172 H Calcium Phosphorus Magnesium ALT Alkaline Phosphatase Total Creatine Kinase CK-MB (CK-2) Rel Index Troponin T Albumin LDL Cholesterol Direct PTH Intact Salicylates Acetaminophen Crossmatch 03/21/19 03/21/19 03/21/19 05:00 06:29 06:30 WBC RBC 2.72 L Hgb 7.4 L Hct 22.9 L MCH 27 L MCHC RDW 19.4 H Lymph % (Auto) [place] % (Auto) Eos % (Auto) Lymph # [place] # Eos # Seg Neutrophils % Seg Neuts % (Manual) 81.0 H Lymphocytes % (Manual) 8.0 L Eosinophils % (Manual) 8.0 H Seg Neutrophils # Lymphocytes # (Manual) 0.7 L Eosinophils # (Manual) 0.7 H PT INR D-Dimer POC ABG pH POC ABG pCO2 POC ABG pO2 ABG pO2 ABG HCO3 ABG Base Excess ABG Hemoglobin Oxyhemoglobin Sodium Potassium Chloride Carbon Dioxide 33 H BUN 43 H Creatinine 1.7 H Glucose 145 H POC Glucose 156 H Calcium Phosphorus Magnesium ALT Alkaline Phosphatase 212 H Total Creatine Kinase CK-MB (CK-2) Rel Index Troponin T Albumin 2.2 L LDL Cholesterol Direct PTH Intact Salicylates Acetaminophen Crossmatch 03/21/19 03/21/19 03/22/19 12:02 18:07 00:21 WBC RBC Hgb Hct MCH MCHC RDW Lymph % (Auto) [place] % (Auto) Eos % (Auto) Lymph # [place] # Eos # Seg Neutrophils % Seg Neuts % (Manual) Lymphocytes % (Manual) Eosinophils % (Manual) Seg Neutrophils # Lymphocytes # (Manual) Eosinophils # (Manual) PT INR D-Dimer POC ABG pH POC ABG pCO2 POC ABG pO2 ABG pO2 ABG HCO3 ABG Base Excess ABG Hemoglobin Oxyhemoglobin Sodium Potassium Chloride Carbon Dioxide BUN Creatinine Glucose POC Glucose 163 H 144 H 153 H Calcium Phosphorus Magnesium ALT Alkaline Phosphatase Total Creatine Kinase CK-MB (CK-2) Rel Index Troponin T Albumin LDL Cholesterol Direct PTH Intact Salicylates Acetaminophen Crossmatch 03/22/19 03/22/19 03/22/19 05:23 05:23 05:31 WBC RBC 2.58 L Hgb 7.1 L Hct 21.8 L MCH 27 L MCHC RDW 19.2 H Lymph % (Auto) [place] % (Auto) Eos % (Auto) Lymph # [place] # Eos # Seg Neutrophils % Seg Neuts % (Manual) Lymphocytes % (Manual) Eosinophils % (Manual) Seg Neutrophils # Lymphocytes # (Manual) Eosinophils # (Manual) PT INR D-Dimer POC ABG pH POC ABG pCO2 POC ABG pO2 ABG pO2 ABG HCO3 ABG Base Excess ABG Hemoglobin Oxyhemoglobin Sodium 147 H Potassium Chloride Carbon Dioxide BUN 68 H Creatinine 2.5 H Glucose POC Glucose 116 H Calcium 10.3 H Phosphorus Magnesium ALT Alkaline Phosphatase Total Creatine Kinase CK-MB (CK-2) Rel Index Troponin T Albumin LDL Cholesterol Direct PTH Intact Salicylates Acetaminophen Crossmatch 03/22/19 03/22/19 03/22/19 08:48 12:37 17:35 WBC RBC Hgb Hct MCH MCHC RDW Lymph % (Auto) [place] % (Auto) Eos % (Auto) Lymph # [place] # Eos # Seg Neutrophils % Seg Neuts % (Manual) Lymphocytes % (Manual) Eosinophils % (Manual) Seg Neutrophils # Lymphocytes # (Manual) Eosinophils # (Manual) PT INR D-Dimer POC ABG pH POC ABG pCO2 POC ABG pO2 ABG pO2 ABG HCO3 ABG Base Excess ABG Hemoglobin Oxyhemoglobin Sodium Potassium Chloride Carbon Dioxide BUN Creatinine Glucose POC Glucose 143 H 155 H Calcium Phosphorus Magnesium ALT Alkaline Phosphatase Total Creatine Kinase CK-MB (CK-2) Rel Index Troponin T Albumin LDL Cholesterol Direct PTH Intact Salicylates Acetaminophen Crossmatch See Detail 03/23/19 03/23/19 03/23/19 00:07 04:00 04:00 WBC 11.2 H RBC 2.32 L Hgb 6.4 L Hct 19.7 L* MCH MCHC RDW 19.4 H Lymph % (Auto) [place] % (Auto) Eos % (Auto) Lymph # [place] # Eos # Seg Neutrophils % Seg Neuts % (Manual) Lymphocytes % (Manual) Eosinophils % (Manual) Seg Neutrophils # Lymphocytes # (Manual) Eosinophils # (Manual) PT INR D-Dimer POC ABG pH POC ABG pCO2 POC ABG pO2 ABG pO2 ABG HCO3 ABG Base Excess ABG Hemoglobin Oxyhemoglobin Sodium 147 H Potassium 5.2 H Chloride Carbon Dioxide BUN 86 H Creatinine 3.2 H Glucose 128 H POC Glucose 135 H Calcium 10.3 H Phosphorus Magnesium ALT Alkaline Phosphatase Total Creatine Kinase CK-MB (CK-2) Rel Index Troponin T Albumin LDL Cholesterol Direct PTH Intact Salicylates Acetaminophen Crossmatch 03/23/19 03/23/19 03/23/19 05:21 11:36 11:36 WBC RBC Hgb 7.9 L Hct 25.0 L MCH MCHC RDW Lymph % (Auto) [place] % (Auto) Eos % (Auto) Lymph # [place] # Eos # Seg Neutrophils % Seg Neuts % (Manual) Lymphocytes % (Manual) Eosinophils % (Manual) Seg Neutrophils # Lymphocytes # (Manual) Eosinophils # (Manual) PT INR D-Dimer POC ABG pH POC ABG pCO2 POC ABG pO2 ABG pO2 ABG HCO3 ABG Base Excess ABG Hemoglobin Oxyhemoglobin Sodium Potassium Chloride Carbon Dioxide BUN Creatinine Glucose POC Glucose 132 H 147 H Calcium Phosphorus Magnesium ALT Alkaline Phosphatase Total Creatine Kinase CK-MB (CK-2) Rel Index Troponin T Albumin LDL Cholesterol Direct PTH Intact Salicylates Acetaminophen Crossmatch 03/23/19 03/24/19 03/24/19 17:31 01:22 04:20 WBC 12.2 H RBC 3.05 L Hgb 8.3 L Hct 25.9 L MCH 27 L MCHC RDW 18.7 H Lymph % (Auto) [place] % (Auto) Eos % (Auto) Lymph # [place] # Eos # Seg Neutrophils % Seg Neuts % (Manual) Lymphocytes % (Manual) Eosinophils % (Manual) Seg Neutrophils # Lymphocytes # (Manual) Eosinophils # (Manual) PT INR D-Dimer POC ABG pH POC ABG pCO2 POC ABG pO2 ABG pO2 ABG HCO3 ABG Base Excess ABG Hemoglobin Oxyhemoglobin Sodium Potassium Chloride Carbon Dioxide BUN Creatinine Glucose POC Glucose 182 H 113 H Calcium Phosphorus Magnesium ALT Alkaline Phosphatase Total Creatine Kinase CK-MB (CK-2) Rel Index Troponin T Albumin LDL Cholesterol Direct PTH Intact Salicylates Acetaminophen Crossmatch 03/24/19 03/24/19 03/24/19 04:20 11:59 18:14 WBC RBC Hgb Hct MCH MCHC RDW Lymph % (Auto) [place] % (Auto) Eos % (Auto) Lymph # [place] # Eos # Seg Neutrophils % Seg Neuts % (Manual) Lymphocytes % (Manual) Eosinophils % (Manual) Seg Neutrophils # Lymphocytes # (Manual) Eosinophils # (Manual) PT INR D-Dimer POC ABG pH POC ABG pCO2 POC ABG pO2 ABG pO2 ABG HCO3 ABG Base Excess ABG Hemoglobin Oxyhemoglobin Sodium Potassium Chloride 94.8 L Carbon Dioxide 32 H BUN 53 H Creatinine 2.3 H Glucose POC Glucose 163 H 134 H Calcium Phosphorus Magnesium ALT Alkaline Phosphatase Total Creatine Kinase CK-MB (CK-2) Rel Index Troponin T Albumin LDL Cholesterol Direct PTH Intact Salicylates Acetaminophen Crossmatch 03/24/19 03/25/19 03/25/19 23:15 05:52 12:02 WBC RBC Hgb Hct MCH MCHC RDW Lymph % (Auto) [place] % (Auto) Eos % (Auto) Lymph # [place] # Eos # Seg Neutrophils % Seg Neuts % (Manual) Lymphocytes % (Manual) Eosinophils % (Manual) Seg Neutrophils # Lymphocytes # (Manual) Eosinophils # (Manual) PT INR D-Dimer POC ABG pH POC ABG pCO2 POC ABG pO2 ABG pO2 ABG HCO3 ABG Base Excess ABG Hemoglobin Oxyhemoglobin Sodium Potassium Chloride Carbon Dioxide BUN Creatinine Glucose POC Glucose 129 H 123 H 125 H Calcium Phosphorus Magnesium ALT Alkaline Phosphatase Total Creatine Kinase CK-MB (CK-2) Rel Index Troponin T Albumin LDL Cholesterol Direct PTH Intact Salicylates Acetaminophen Crossmatch 03/25/19 03/26/19 03/26/19 17:27 00:30 05:35 WBC RBC 3.01 L Hgb 8.1 L Hct 25.7 L MCH 27 L MCHC RDW 19.2 H Lymph % (Auto) 11.4 L [place] % (Auto) Eos % (Auto) 8.0 H Lymph # 1.0 L [place] # Eos # 0.7 H Seg Neutrophils % 73.9 H Seg Neuts % (Manual) Lymphocytes % (Manual) Eosinophils % (Manual) Seg Neutrophils # Lymphocytes # (Manual) Eosinophils # (Manual) PT INR D-Dimer POC ABG pH POC ABG pCO2 POC ABG pO2 ABG pO2 ABG HCO3 ABG Base Excess ABG Hemoglobin Oxyhemoglobin Sodium Potassium Chloride Carbon Dioxide BUN Creatinine Glucose POC Glucose 130 H 129 H Calcium Phosphorus Magnesium ALT Alkaline Phosphatase Total Creatine Kinase CK-MB (CK-2) Rel Index Troponin T Albumin LDL Cholesterol Direct PTH Intact Salicylates Acetaminophen Crossmatch 03/26/19 03/26/19 03/26/19 05:35 05:45 12:16 WBC RBC Hgb Hct MCH MCHC RDW Lymph % (Auto) [place] % (Auto) Eos % (Auto) Lymph # [place] # Eos # Seg Neutrophils % Seg Neuts % (Manual) Lymphocytes % (Manual) Eosinophils % (Manual) Seg Neutrophils # Lymphocytes # (Manual) Eosinophils # (Manual) PT INR D-Dimer POC ABG pH POC ABG pCO2 POC ABG pO2 ABG pO2 ABG HCO3 ABG Base Excess ABG Hemoglobin Oxyhemoglobin Sodium Potassium Chloride 94.9 L Carbon Dioxide 31 H BUN 44 H Creatinine 2.0 H Glucose POC Glucose 118 H 107 H Calcium Phosphorus Magnesium ALT Alkaline Phosphatase Total Creatine Kinase CK-MB (CK-2) Rel Index Troponin T Albumin LDL Cholesterol Direct PTH Intact Salicylates Acetaminophen Crossmatch 03/26/19 03/27/19 03/27/19 17:56 00:36 05:37 WBC RBC Hgb Hct MCH MCHC RDW Lymph % (Auto) [place] % (Auto) Eos % (Auto) Lymph # [place] # Eos # Seg Neutrophils % Seg Neuts % (Manual) Lymphocytes % (Manual) Eosinophils % (Manual) Seg Neutrophils # Lymphocytes # (Manual) Eosinophils # (Manual) PT INR D-Dimer POC ABG pH POC ABG pCO2 POC ABG pO2 ABG pO2 ABG HCO3 ABG Base Excess ABG Hemoglobin Oxyhemoglobin Sodium Potassium Chloride Carbon Dioxide BUN Creatinine Glucose POC Glucose 107 H 110 H 122 H Calcium Phosphorus Magnesium ALT Alkaline Phosphatase Total Creatine Kinase CK-MB (CK-2) Rel Index Troponin T Albumin LDL Cholesterol Direct PTH Intact Salicylates Acetaminophen Crossmatch 03/27/19 03/27/19 03/28/19 11:22 18:00 05:17 WBC RBC Hgb Hct MCH MCHC RDW Lymph % (Auto) [place] % (Auto) Eos % (Auto) Lymph # [place] # Eos # Seg Neutrophils % Seg Neuts % (Manual) Lymphocytes % (Manual) Eosinophils % (Manual) Seg Neutrophils # Lymphocytes # (Manual) Eosinophils # (Manual) PT INR D-Dimer POC ABG pH POC ABG pCO2 POC ABG pO2 ABG pO2 ABG HCO3 ABG Base Excess ABG Hemoglobin Oxyhemoglobin Sodium Potassium Chloride Carbon Dioxide BUN Creatinine Glucose POC Glucose 120 H 111 H 107 H Calcium Phosphorus Magnesium ALT Alkaline Phosphatase Total Creatine Kinase CK-MB (CK-2) Rel Index Troponin T Albumin LDL Cholesterol Direct PTH Intact Salicylates Acetaminophen Crossmatch 03/28/19 03/28/19 03/29/19 12:27 18:08 05:47 WBC RBC Hgb Hct MCH MCHC RDW Lymph % (Auto) [place] % (Auto) Eos % (Auto) Lymph # [place] # Eos # Seg Neutrophils % Seg Neuts % (Manual) Lymphocytes % (Manual) Eosinophils % (Manual) Seg Neutrophils # Lymphocytes # (Manual) Eosinophils # (Manual) PT INR D-Dimer POC ABG pH POC ABG pCO2 POC ABG pO2 ABG pO2 ABG HCO3 ABG Base Excess ABG Hemoglobin Oxyhemoglobin Sodium Potassium Chloride Carbon Dioxide BUN Creatinine Glucose POC Glucose 114 H 121 H 112 H Calcium Phosphorus Magnesium ALT Alkaline Phosphatase Total Creatine Kinase CK-MB (CK-2) Rel Index Troponin T Albumin LDL Cholesterol Direct PTH Intact Salicylates Acetaminophen Crossmatch 03/29/19 03/29/19 03/30/19 12:14 18:08 00:31 WBC RBC Hgb Hct MCH MCHC RDW Lymph % (Auto) [place] % (Auto) Eos % (Auto) Lymph # [place] # Eos # Seg Neutrophils % Seg Neuts % (Manual) Lymphocytes % (Manual) Eosinophils % (Manual) Seg Neutrophils # Lymphocytes # (Manual) Eosinophils # (Manual) PT INR D-Dimer POC ABG pH POC ABG pCO2 POC ABG pO2 ABG pO2 ABG HCO3 ABG Base Excess ABG Hemoglobin Oxyhemoglobin Sodium Potassium Chloride Carbon Dioxide BUN Creatinine Glucose POC Glucose 117 H 140 H 114 H Calcium Phosphorus Magnesium ALT Alkaline Phosphatase Total Creatine Kinase CK-MB (CK-2) Rel Index Troponin T Albumin LDL Cholesterol Direct PTH Intact Salicylates Acetaminophen Crossmatch 03/30/19 03/30/19 03/30/19 10:13 10:13 23:53 WBC RBC 2.81 L Hgb 7.7 L Hct 24.3 L MCH 27 L MCHC RDW 19.0 H Lymph % (Auto) 12.2 L [place] % (Auto) Eos % (Auto) 7.9 H Lymph # 1.0 L [place] # Eos # 0.6 H Seg Neutrophils % 72.3 H Seg Neuts % (Manual) Lymphocytes % (Manual) Eosinophils % (Manual) Seg Neutrophils # Lymphocytes # (Manual) Eosinophils # (Manual) PT INR D-Dimer POC ABG pH POC ABG pCO2 POC ABG pO2 ABG pO2 ABG HCO3 ABG Base Excess ABG Hemoglobin Oxyhemoglobin Sodium Potassium 5.1 H Chloride 96.5 L Carbon Dioxide BUN 73 H Creatinine 3.9 H D Glucose POC Glucose 114 H Calcium 10.3 H Phosphorus 6.30 H Magnesium 2.70 H ALT Alkaline Phosphatase 185 H Total Creatine Kinase CK-MB (CK-2) Rel Index Troponin T Albumin 2.6 L LDL Cholesterol Direct PTH Intact Salicylates Acetaminophen Crossmatch 03/31/19 03/31/19 03/31/19 05:45 10:26 10:26 WBC RBC 3.01 L Hgb 8.2 L Hct 26.4 L MCH 27 L MCHC 31 L RDW 20.3 H Lymph % (Auto) 13.3 L [place] % (Auto) Eos % (Auto) 7.2 H Lymph # 1.1 L [place] # Eos # 0.6 H Seg Neutrophils % 72.1 H Seg Neuts % (Manual) Lymphocytes % (Manual) Eosinophils % (Manual) Seg Neutrophils # Lymphocytes # (Manual) Eosinophils # (Manual) PT INR D-Dimer POC ABG pH POC ABG pCO2 POC ABG pO2 ABG pO2 ABG HCO3 ABG Base Excess ABG Hemoglobin Oxyhemoglobin Sodium Potassium Chloride 96.9 L Carbon Dioxide 33 H BUN 37 H Creatinine 2.4 H Glucose POC Glucose 108 H Calcium 10.3 H Phosphorus Magnesium ALT Alkaline Phosphatase Total Creatine Kinase CK-MB (CK-2) Rel Index Troponin T Albumin LDL Cholesterol Direct PTH Intact Salicylates Acetaminophen Crossmatch 03/31/19 04/01/19 04/01/19 12:38 05:48 12:06 WBC RBC Hgb Hct MCH MCHC RDW Lymph % (Auto) [place] % (Auto) Eos % (Auto) Lymph # [place] # Eos # Seg Neutrophils % Seg Neuts % (Manual) Lymphocytes % (Manual) Eosinophils % (Manual) Seg Neutrophils # Lymphocytes # (Manual) Eosinophils # (Manual) PT INR D-Dimer POC ABG pH POC ABG pCO2 POC ABG pO2 ABG pO2 ABG HCO3 ABG Base Excess ABG Hemoglobin Oxyhemoglobin Sodium Potassium Chloride Carbon Dioxide BUN Creatinine Glucose POC Glucose 108 H 114 H 111 H Calcium Phosphorus Magnesium ALT Alkaline Phosphatase Total Creatine Kinase CK-MB (CK-2) Rel Index Troponin T Albumin LDL Cholesterol Direct PTH Intact Salicylates Acetaminophen Crossmatch 04/01/19 04/02/19 04/04/19 18:24 00:36 23:55 WBC RBC Hgb Hct MCH MCHC RDW Lymph % (Auto) [place] % (Auto) Eos % (Auto) Lymph # [place] # Eos # Seg Neutrophils % Seg Neuts % (Manual) Lymphocytes % (Manual) Eosinophils % (Manual) Seg Neutrophils # Lymphocytes # (Manual) Eosinophils # (Manual) PT INR D-Dimer POC ABG pH POC ABG pCO2 POC ABG pO2 ABG pO2 ABG HCO3 ABG Base Excess ABG Hemoglobin Oxyhemoglobin Sodium Potassium Chloride Carbon Dioxide BUN Creatinine Glucose POC Glucose 113 H 117 H 109 H Calcium Phosphorus Magnesium ALT Alkaline Phosphatase Total Creatine Kinase CK-MB (CK-2) Rel Index Troponin T Albumin LDL Cholesterol Direct PTH Intact Salicylates Acetaminophen Crossmatch 04/06/19 04/06/19 04/06/19 00:11 06:02 23:30 WBC RBC Hgb Hct MCH MCHC RDW Lymph % (Auto) [place] % (Auto) Eos % (Auto) Lymph # [place] # Eos # Seg Neutrophils % Seg Neuts % (Manual) Lymphocytes % (Manual) Eosinophils % (Manual) Seg Neutrophils # Lymphocytes # (Manual) Eosinophils # (Manual) PT INR D-Dimer POC ABG pH POC ABG pCO2 POC ABG pO2 ABG pO2 ABG HCO3 ABG Base Excess ABG Hemoglobin Oxyhemoglobin Sodium Potassium Chloride Carbon Dioxide BUN Creatinine Glucose POC Glucose 116 H 112 H 112 H Calcium Phosphorus Magnesium ALT Alkaline Phosphatase Total Creatine Kinase CK-MB (CK-2) Rel Index Troponin T Albumin LDL Cholesterol Direct PTH Intact Salicylates Acetaminophen Crossmatch 04/08/19 04/08/19 04/08/19 02:23 06:19 13:01 WBC RBC Hgb Hct MCH MCHC RDW Lymph % (Auto) [place] % (Auto) Eos % (Auto) Lymph # [place] # Eos # Seg Neutrophils % Seg Neuts % (Manual) Lymphocytes % (Manual) Eosinophils % (Manual) Seg Neutrophils # Lymphocytes # (Manual) Eosinophils # (Manual) PT INR D-Dimer POC ABG pH POC ABG pCO2 POC ABG pO2 ABG pO2 ABG HCO3 ABG Base Excess ABG Hemoglobin Oxyhemoglobin Sodium Potassium Chloride Carbon Dioxide BUN Creatinine Glucose POC Glucose 144 H 126 H 118 H Calcium Phosphorus Magnesium ALT Alkaline Phosphatase Total Creatine Kinase CK-MB (CK-2) Rel Index Troponin T Albumin LDL Cholesterol Direct PTH Intact Salicylates Acetaminophen Crossmatch 04/08/19 04/09/19 04/10/19 23:28 05:52 06:34 WBC RBC Hgb Hct MCH MCHC RDW Lymph % (Auto) [place] % (Auto) Eos % (Auto) Lymph # [place] # Eos # Seg Neutrophils % Seg Neuts % (Manual) Lymphocytes % (Manual) Eosinophils % (Manual) Seg Neutrophils # Lymphocytes # (Manual) Eosinophils # (Manual) PT INR D-Dimer POC ABG pH POC ABG pCO2 POC ABG pO2 ABG pO2 ABG HCO3 ABG Base Excess ABG Hemoglobin Oxyhemoglobin Sodium Potassium Chloride Carbon Dioxide BUN Creatinine Glucose POC Glucose 119 H 116 H 114 H Calcium Phosphorus Magnesium ALT Alkaline Phosphatase Total Creatine Kinase CK-MB (CK-2) Rel Index Troponin T Albumin LDL Cholesterol Direct PTH Intact Salicylates Acetaminophen Crossmatch 04/10/19 04/10/19 04/11/19 12:34 18:59 00:36 WBC RBC Hgb Hct MCH MCHC RDW Lymph % (Auto) [place] % (Auto) Eos % (Auto) Lymph # [place] # Eos # Seg Neutrophils % Seg Neuts % (Manual) Lymphocytes % (Manual) Eosinophils % (Manual) Seg Neutrophils # Lymphocytes # (Manual) Eosinophils # (Manual) PT INR D-Dimer POC ABG pH POC ABG pCO2 POC ABG pO2 ABG pO2 ABG HCO3 ABG Base Excess ABG Hemoglobin Oxyhemoglobin Sodium Potassium Chloride Carbon Dioxide BUN Creatinine Glucose POC Glucose 112 H 109 H 124 H Calcium Phosphorus Magnesium ALT Alkaline Phosphatase Total Creatine Kinase CK-MB (CK-2) Rel Index Troponin T Albumin LDL Cholesterol Direct PTH Intact Salicylates Acetaminophen Crossmatch 04/11/19 04/11/19 04/12/19 08:01 17:25 02:18 WBC RBC Hgb Hct MCH MCHC RDW Lymph % (Auto) [place] % (Auto) Eos % (Auto) Lymph # [place] # Eos # Seg Neutrophils % Seg Neuts % (Manual) Lymphocytes % (Manual) Eosinophils % (Manual) Seg Neutrophils # Lymphocytes # (Manual) Eosinophils # (Manual) PT INR D-Dimer POC ABG pH POC ABG pCO2 POC ABG pO2 ABG pO2 ABG HCO3 ABG Base Excess ABG Hemoglobin Oxyhemoglobin Sodium Potassium Chloride Carbon Dioxide BUN Creatinine Glucose POC Glucose 118 H 106 H 125 H Calcium Phosphorus Magnesium ALT Alkaline Phosphatase Total Creatine Kinase CK-MB (CK-2) Rel Index Troponin T Albumin LDL Cholesterol Direct PTH Intact Salicylates Acetaminophen Crossmatch 04/12/19 04/12/19 04/12/19 06:24 12:22 17:13 WBC RBC Hgb Hct MCH MCHC RDW Lymph % (Auto) [place] % (Auto) Eos % (Auto) Lymph # [place] # Eos # Seg Neutrophils % Seg Neuts % (Manual) Lymphocytes % (Manual) Eosinophils % (Manual) Seg Neutrophils # Lymphocytes # (Manual) Eosinophils # (Manual) PT INR D-Dimer POC ABG pH POC ABG pCO2 POC ABG pO2 ABG pO2 ABG HCO3 ABG Base Excess ABG Hemoglobin Oxyhemoglobin Sodium Potassium Chloride Carbon Dioxide BUN Creatinine Glucose POC Glucose 128 H 114 H 110 H Calcium Phosphorus Magnesium ALT Alkaline Phosphatase Total Creatine Kinase CK-MB (CK-2) Rel Index Troponin T Albumin LDL Cholesterol Direct PTH Intact Salicylates Acetaminophen Crossmatch 04/13/19 04/13/19 04/13/19 06:59 07:31 07:31 WBC RBC 3.34 L Hgb 8.9 L Hct 28.6 L MCH 27 L MCHC 31 L RDW 19.6 H Lymph % (Auto) [place] % (Auto) Eos % (Auto) Lymph # [place] # Eos # Seg Neutrophils % Seg Neuts % (Manual) Lymphocytes % (Manual) Eosinophils % (Manual) Seg Neutrophils # Lymphocytes # (Manual) Eosinophils # (Manual) PT INR D-Dimer POC ABG pH POC ABG pCO2 POC ABG pO2 ABG pO2 ABG HCO3 ABG Base Excess ABG Hemoglobin Oxyhemoglobin Sodium Potassium Chloride 96.4 L Carbon Dioxide 33 H BUN 66 H Creatinine 4.5 H Glucose 103 H POC Glucose 107 H Calcium Phosphorus Magnesium ALT Alkaline Phosphatase Total Creatine Kinase CK-MB (CK-2) Rel Index Troponin T Albumin LDL Cholesterol Direct PTH Intact Salicylates Acetaminophen Crossmatch 04/13/19 04/14/19 04/14/19 23:43 05:50 13:07 WBC RBC Hgb Hct MCH MCHC RDW Lymph % (Auto) [place] % (Auto) Eos % (Auto) Lymph # [place] # Eos # Seg Neutrophils % Seg Neuts % (Manual) Lymphocytes % (Manual) Eosinophils % (Manual) Seg Neutrophils # Lymphocytes # (Manual) Eosinophils # (Manual) PT INR D-Dimer POC ABG pH POC ABG pCO2 POC ABG pO2 ABG pO2 ABG HCO3 ABG Base Excess ABG Hemoglobin Oxyhemoglobin Sodium Potassium Chloride Carbon Dioxide BUN Creatinine Glucose POC Glucose 119 H 112 H 112 H Calcium Phosphorus Magnesium ALT Alkaline Phosphatase Total Creatine Kinase CK-MB (CK-2) Rel Index Troponin T Albumin LDL Cholesterol Direct PTH Intact Salicylates Acetaminophen Crossmatch 04/14/19 04/15/19 04/15/19 18:35 01:18 05:17 WBC RBC Hgb Hct MCH MCHC RDW Lymph % (Auto) [place] % (Auto) Eos % (Auto) Lymph # [place] # Eos # Seg Neutrophils % Seg Neuts % (Manual) Lymphocytes % (Manual) Eosinophils % (Manual) Seg Neutrophils # Lymphocytes # (Manual) Eosinophils # (Manual) PT INR D-Dimer POC ABG pH POC ABG pCO2 POC ABG pO2 ABG pO2 ABG HCO3 ABG Base Excess ABG Hemoglobin Oxyhemoglobin Sodium Potassium Chloride Carbon Dioxide BUN Creatinine Glucose POC Glucose 114 H 114 H 114 H Calcium Phosphorus Magnesium ALT Alkaline Phosphatase Total Creatine Kinase CK-MB (CK-2) Rel Index Troponin T Albumin LDL Cholesterol Direct PTH Intact Salicylates Acetaminophen Crossmatch 04/15/19 04/15/19 04/16/19 11:50 23:39 05:41 WBC RBC Hgb Hct MCH MCHC RDW Lymph % (Auto) [place] % (Auto) Eos % (Auto) Lymph # [place] # Eos # Seg Neutrophils % Seg Neuts % (Manual) Lymphocytes % (Manual) Eosinophils % (Manual) Seg Neutrophils # Lymphocytes # (Manual) Eosinophils # (Manual) PT INR D-Dimer POC ABG pH POC ABG pCO2 POC ABG pO2 ABG pO2 ABG HCO3 ABG Base Excess ABG Hemoglobin Oxyhemoglobin Sodium Potassium Chloride Carbon Dioxide BUN Creatinine Glucose POC Glucose 109 H 115 H 125 H Calcium Phosphorus Magnesium ALT Alkaline Phosphatase Total Creatine Kinase CK-MB (CK-2) Rel Index Troponin T Albumin LDL Cholesterol Direct PTH Intact Salicylates Acetaminophen Crossmatch 04/16/19 04/17/19 12:53 01:00 WBC RBC Hgb Hct MCH MCHC RDW Lymph % (Auto) [place] % (Auto) Eos % (Auto) Lymph # [place] # Eos # Seg Neutrophils % Seg Neuts % (Manual) Lymphocytes % (Manual) Eosinophils % (Manual) Seg Neutrophils # Lymphocytes # (Manual) Eosinophils # (Manual) PT INR D-Dimer POC ABG pH POC ABG pCO2 POC ABG pO2 ABG pO2 ABG HCO3 ABG Base Excess ABG Hemoglobin Oxyhemoglobin Sodium Potassium Chloride Carbon Dioxide BUN Creatinine Glucose POC Glucose 121 H 127 H Calcium Phosphorus Magnesium ALT Alkaline Phosphatase Total Creatine Kinase CK-MB (CK-2) Rel Index Troponin T Albumin LDL Cholesterol Direct PTH Intact Salicylates Acetaminophen Crossmatch
--- NOTE | 2019-04-17 11:21 | Progress Note ---
Assessment and Plan Assessment: * End stage renal disease (outpatient TTS schedule) * Acute hypoxic respiratory failure s/p trach * KEON pneumonia --Sputum cx: MDR Acinetobacter * Cardiomyopathy - EF 35-40% * Atrial fibrillation * History of CVA * Anemia secondary to ESRD * Secondary hyperparathyroidism Plan * Continue HD MWF via LUE AVG, due today * UF as tolerated * Nutrition per primary team * Dose medications for renal function * Epogen 20k TIW * Weekly labs We will continue to follow patient for renal related issues. Subjective Date of service: 04/17/19 Principal diagnosis: Respiratory failure, acute on chronic systolic HF, ESRD Interval history: no acute issues noted overnight. tolerating HD sessions per HD nurses, will have HD later today. patient remains at baseline poor mental status Objective - Exam Narrative Exam: General appearance: chronically ill, intubated, frail EENT: normocephalic Neck: trach collar in place Respiratory: coarse mechanical breath sounds bilaterally Cardiology: regular, S1S2, no edema Gastrointestinal: PEG and colostomy noted Integumentary: warm and dry Psychiatric: unable to assess - Vital Signs Vital signs: Vital Signs - 12hr 04/16/19 04/17/19 04/17/19 23:47 03:41 08:00 Temperature 98.0 F 98.0 F 98.0 F Pulse Rate 110 H 93 H 86 Pulse Rate [ Apical] Pulse Rate [ From Monitor] Respiratory 18 20 18 Rate Blood Pressure 123/56 121/58 105/51 O2 Sat by Pulse 100 100 100 Oximetry 04/17/19 10:00 Temperature Pulse Rate 89 Pulse Rate [ 80 Apical] Pulse Rate [ 89 From Monitor] Respiratory 18 Rate Blood Pressure O2 Sat by Pulse 97 Oximetry - Lab 04/13/19 07:31 04/13/19 07:31 Most recent lab results ABG pH 7.424 pH Units (7.350-7.450) 03/19/19 04:23 ABG pCO2 48.0 mm Hg 03/19/19 04:23 ABG pO2 78.3 mm Hg (80.0-90.0) L 03/19/19 04:23 ABG HCO3 30.7 mmol/L (20.0-26.0) H 03/19/19 04:23 ABG O2 Saturation 97.0 % (95.0-99.0) 03/19/19 04:23 Calcium 9.8 mg/dL (8.4-10.2) 04/13/19 07:31 Phosphorus 4.30 mg/dL (2.5-4.5) D 03/31/19 10:26 Magnesium 2.70 mg/dL (1.7-2.3) H 03/30/19 10:13 Medications & Allergies - Medications Allergies/Adverse Reactions: Allergies haloperidol [From Haldol] Adverse Reaction (Verified 03/13/18 12:10) Unknown haloperidol lactate [From Haldol] Adverse Reaction (Verified 03/13/18 12:10) Unknown Home Medications: Home Medications Medication Instructions Recorded Confirmed Last Taken Type risperiDONE [RisperDAL] 1 mg PO QAM 03/13/18 02/21/19 Unknown History Sertraline [Zoloft] 100 mg PO QDAY 08/26/18 02/21/19 Unknown History Polyethylene Glycol 3350 [Miralax 17 gm PO QDAY #30 packet 11/05/18 02/21/19 Unknown Rx 3350] Aspirin EC [Halfprin EC] 81 mg PO DAILY #30 11/19/18 02/21/19 Unknown Rx Docusate Sodium [Colace CAP] 100 mg PO BID #60 11/19/18 02/21/19 Unknown Rx Folic Acid [Folvite] 1 mg PO DAILY #30 tab 11/19/18 02/21/19 Unknown Rx Famotidine [Pepcid] 20 mg PO DAILY tablet 12/08/18 02/21/19 Unknown Rx Gabapentin [Neurontin] 100 mg PO QHS capsule 12/08/18 02/21/19 Unknown Rx Metoprolol [Lopressor TAB] 50 mg PO BID 30 Days tablet 12/08/18 02/21/19 Unknown Rx Sevelamer Carbonate [Renvela] 800 mg PO TIDWM tablet 12/08/18 02/21/19 Unknown Rx hydrALAZINE [Apresoline TAB] 100 mg PO Q8HR #120 tablet 12/08/18 02/21/19 Unknown Rx Acetaminophen [Acetaminophen TAB] 650 mg PO Q12H PRN 12/15/18 02/21/19 Unknown History Glucagon,Human Recombinant 1 mg IJ Q15MIN PRN 12/15/18 02/21/19 Unknown History [Glucagon Emergency Kit] Insulin Aspart [NovoLOG 100 See Protocol SQ QWEEK 12/15/18 02/21/19 Unknown History UNITS/ML VIAL] Active Medications: Generic Name Dose Route Start Last Admin Trade Name Freq PRN Reason Stop Dose Admin Albuterol/Ipratropium 1 ampul 02/24/19 20:00 04/17/19 08:47 Duoneb *Not For Prn Use* IH 1 ampul TIDRT SANCHEZ Administration Lipase/Protease/Amylase 1 each 04/10/19 15:16 Pancreazkaren Barrientos 10,500 Unit FEEDTUBE PRN PRN For Clogged Feeding Tube Epoetin Solitario 20,000 unit 03/24/19 11:17 04/15/19 15:59 Procrit IV 20,000 unit UMA PRN Administration hemodialysis Famotidine 20 mg 02/23/19 10:00 04/17/19 09:48 Pepcid PO 20 mg DAILY SANCHEZ Administration Hydrophilic Ointment 1 applic 02/21/19 18:24 03/05/19 08:16 Vaseline Lip Therapy TP 1 applic Q2HR PRN Administration Dry Lips Sodium Chloride 100 mls @ 999 mls/hr 02/26/19 09:00 Nacl 0.9% IV UMA PRN Hypotension Insulin Human Regular 0 units 02/26/19 12:00 04/16/19 20:09 Humulin R SUB-Q Not Given Q6HR [facility] Protocol Metoprolol Tartrate 2.5 mg 02/28/19 12:06 03/15/19 05:15 Lopressor IV 2.5 mg Q4HR PRN Administration Tachycardia Multi-Ingred Cream/Lotion/Oil/Oint 1 applic 02/21/19 18:24 04/16/19 14:31 Artificial Tears Ophth Oint OU 1 applic Q4HR PRN Administration Dry Eye(s) Risperidone 1 mg 02/25/19 13:00 04/17/19 09:48 Risperdal PO 1 mg DAILY SANCHEZ Administration Sertraline HCl 100 mg 02/25/19 13:00 04/17/19 09:48 Zoloft PO 100 mg DAILY SANCHEZ Administration Simple Syrup 15 ml 04/10/19 15:16 Simple Syrup FEEDTUBE PRN PRN Hypoglycemia Simple Syrup 30 ml 04/10/19 15:16 Simple Syrup FEEDTUBE PRN PRN Hypoglycemia Sodium Bicarbonate 325 mg 04/10/19 15:16 Sodium Bicarbonate FEEDTUBE PRN PRN For Clogged Feeding Tube Sodium Hypochlorite 1 applic 04/01/19 13:00 04/17/19 09:48 Dakin's Half Strength TP 1 applicatio BID SANCHEZ Administration
[2019-04-17] MEDS: INSULIN REGULAR, HUMAN 100 UNITS/1 ML SUB-Q SCH ×2 (12:40→18:43)
--- NOTE | 2019-04-17 13:13 | Progress Note ---
Assessment and Plan Assessment and plan: Day 52, which is my first day caring for patient on this admission. Patient is a 63-year-old -[place] man from [facility] with a plethora of co-morbidities including blindness, CVA, CHF, PPM/ICD, loop recorder since 2012 that is MRI compatible, IDDM type 2, sepsis left foot ulcer, afib, ESRD with complications on HD TTS, hypertension, AOCD and GERD who presented to the ED with hypotensive after intubation in the emergency room. Still intubated, diagnosed with fluid overload, pleural effusion. Patient has had recurrent admission in the hospital for similar reason and was recently discharged from the hospital following treatment of Severe Sepsis due to Necrotizing Unstagable sacral decubitus ulcer with ostemomylitis, expected to complete abx on discharge till 02/16/19. Trach and peg done and LTAC transfer with anticipated longer weaning process and wound care management. HR control improved with change in BB. Acute respiratory failure on mechanical ventilator >96 hrs - Currently on trach placed on 03/03 Pulm consult appreciated weaning trial VAP BUNDLE ASPIRATION BUNDLE Continue T-piece Finished therapy for Acinetobacter Acute pulmonary edema, fluid overload on CXR repeat xray intermittently Dialysis Necrotizing Unstagable sacral decubitus ulcer with ostemomyelitis Wound care, Dilated CMP Cardiomyiopathy EF 35-40% Continue diuresis PPM/ICD Acute encephalopathy, probably metabolic or toxic Continues on Mechanical ventilator. ESRD on hemodialysis nephrology following Vascular eval. done re: LUE AV graft, see note Bilateral pleural effusions Anticipate improvement with Permanent atrial fibrillation and flutter Not on anticoagulation because of anemia thrombocytopenia Change noted to BB agent to IV. 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 -Pt is s/p x1 DDVAP RUL atelectasis, nebs as needed DVT prophylaxis Lovenox DNR poor prognosis Awaiting on placement History Interval history: Patient was seen and examined. Follow-up on current diagnosis. No overnight events reported to me. Patient is mainly nonverbal. Imaging, nursing note, chart, labs and old chart reviewed. Hospitalist Physical - Physical exam Narrative exam: Gen: severely disable, nad, awake alert x 1 HEENT: NCAT, EOMI, PERRL, OP Clear Neck: supple, trach CVS/Heart: irreg irregular, normal S1S2, pulses present bilaterally Chest/Lungs: diminished bs ymmetrical chest expansion, good air entry bilaterally GI/Abdomen:peg, colostomy present, good bowel sounds, no guarding or rebound /Bladder: no suprapubic tenderness, no CVA or paraspinal tenderness Extermity/Skin: no c/c/e, no obvious rash MSK: no FROM x 4 Neuro: CN 2-12 grossly intact except vision, no new focal deficits Psych: calm - Constitutional Vitals: Temp Pulse Resp BP Pulse Ox 98.6 F 77 18 131/61 97 04/17/19 11:00 04/17/19 13:00 04/17/19 11:00 04/17/19 13:00 04/17/19 10:00 General appearance: Present: no acute distress, well-nourished Results - Labs CBC & Chem 7: 04/13/19 07:31 04/13/19 07:31 Labs: Laboratory Last Values WBC 6.9 K/mm3 (4.5-11.0) 04/13/19 07:31 RBC 3.34 M/mm3 (3.65-5.03) L 04/13/19 07:31 Hgb 8.9 gm/dl (11.8-15.2) L 04/13/19 07:31 Hct 28.6 % (35.5-45.6) L 04/13/19 07:31 MCV 86 fl (84-94) 04/13/19 07:31 MCH 27 pg (28-32) L 04/13/19 07:31 MCHC 31 % (32-34) L 04/13/19 07:31 RDW 19.6 % (13.2-15.2) H 04/13/19 07:31 Plt Count 319 K/mm3 (140-440) 04/13/19 07:31 Lymph % (Auto) 13.3 % (13.4-35.0) L 03/31/19 10:26 [place] % (Auto) 6.5 % (0.0-7.3) 03/31/19 10: Eos % (Auto) 7.2 % (0.0-4.3) H 03/31/19 10: Baso % (Auto) 0.9 % (0.0-1.8) 03/31/19 10: Lymph # 1.1 K/mm3 (1.2-5.4) L 03/31/19 10: [place] # 0.5 K/mm3 (0.0-0.8) 03/31/19 10: Eos # 0.6 K/mm3 (0.0-0.4) H 03/31/19 10: Baso # 0.1 K/mm3 (0.0-0.1) 03/31/19 10:26 Add Manual Diff Complete 03/21/19 06:30 Total Counted 100 03/21/19 06:30 Seg Neutrophils % 72.1 % (40.0-70.0) H 03/31/19 10:26 Seg Neuts % (Manual) 81.0 % (40.0-70.0) H 03/21/19 06:30 0 % 03/21/19 06:30 8.0 % (13.4-35.0) L 03/21/19 06:30 Reactive Lymphs % (Man) 0 % 03/21/19 06:30 1.0 % (0.0-7.3) 03/21/19 06:30 8.0 % (0.0-4.3) H 03/21/19 06:30 1.0 % (0.0-1.8) 03/21/19 06:30 1.0 % 03/21/19 06:30 0 % 03/21/19 06:30 0 % 03/21/19 06:30 0 % 03/21/19 06:30 Nucleated RBC % Not Reportable 03/21/19 06:30 Seg Neutrophils # 6.0 K/mm3 (1.8-7.7) 03/31/19 10: Seg Neutrophils # Man 6.7 K/mm3 (1.8-7.7) 03/21/19 06:30 Band Neutrophils # 0.0 K/mm3 03/21/19 06:30 0.7 K/mm3 (1.2-5.4) L 03/21/19 06:30 Abs React Lymphs (Man) 0.0 K/mm3 03/21/19 06:30 0.1 K/mm3 (0.0-0.8) 03/21/19 06:30 0.7 K/mm3 (0.0-0.4) H 03/21/19 06:30 0.1 K/mm3 (0.0-0.1) 03/21/19 06:30 0.1 K/mm3 03/21/19 06:30 0.0 K/mm3 03/21/19 06:30 0.0 K/mm3 03/21/19 06:30 Blast Cells # 0.0 K/mm3 03/21/19 06:30 WBC Morphology Not Reportable 03/21/19 06:30 Hypersegmented Neuts Not Reportable 03/21/19 06:30 Hyposegmented Neuts Not Reportable 03/21/19 06:30 Hypogranular Neuts Not Reportable 03/21/19 06:30 Not Reportable 03/21/19 06:30 Not Reportable 03/21/19 06:30 Not Reportable 03/21/19 06:30 Not Reportable 03/21/19 06:30 Not Reportable 03/21/19 06:30 Not Reportable 03/21/19 06:30 Consistent w auto 03/21/19 06:30 Not Reportable 03/21/19 06:30 Plt Clumps, EDTA Not Reportable 03/21/19 06:30 Not Reportable 03/21/19 06:30 Not Reportable 03/21/19 06:30 Not Reportable 03/21/19 06:30 Plt Morphology Comment Not Reportable 03/21/19 06:30 RBC Morphology Not Reportable 03/21/19 06:30 Dimorphic RBCs Not Reportable 03/21/19 06:30 Not Reportable 03/21/19 06:30 Few 03/21/19 06:30 Few 03/21/19 06:30 Few 03/21/19 06:30 Not Reportable 03/21/19 06:30 Not Reportable 03/21/19 06:30 Not Reportable 03/21/19 06:30 Not Reportable 03/21/19 06:30 Not Reportable 03/21/19 06:30 1+ 03/21/19 06:30 Not Reportable 03/21/19 06:30 Few 03/21/19 06:30 Not Reportable 03/21/19 06:30 Not Reportable 03/21/19 06:30 Not Reportable 03/21/19 06:30 Not Reportable 03/21/19 06:30 Not Reportable 03/21/19 06:30 Not Reportable 03/21/19 06:30 Not Reportable 03/21/19 06:30 Acanthocytes (Spur) Not Reportable 03/21/19 06:30 Rouleaux Not Reportable 03/21/19 06:30 Not Reportable 03/21/19 06:30 Not Reportable 03/21/19 06:30 Not Reportable 03/21/19 06:30 Not Reportable 03/21/19 06:30 Hem Pathologist Commnt No 03/21/19 06:30 PT 16.3 Sec. (12.2-14.9) H 03/01/19 09:39 INR 1.35 (0.87-1.13) H 03/01/19 09:39 APTT 33.7 Sec. (24.2-36.6) 02/21/19 18:30 2987.82 ng/mlDDU (0-234) H 02/22/19 05:54 POC ABG pH 7.510 (7.35-7.45) H 03/18/19 06:38 ABG pH 7.424 pH Units (7.350-7.450) 03/19/19 04:23 POC ABG pCO2 38.9 (35-45) 03/18/19 06:38 ABG pCO2 48.0 mm Hg 03/19/19 04:23 POC ABG pO2 164 (80-105) H 03/18/19 06:38 ABG pO2 78.3 mm Hg (80.0-90.0) L 03/19/19 04:23 POC ABG HCO3 31.0 (22-26 mml/L) 03/18/19 06:38 ABG HCO3 30.7 mmol/L (20.0-26.0) H 03/19/19 04:23 POC ABG Total CO2 32 (23-27mmol/L) 03/18/19 06:38 POC ABG O2 Sat 100 03/18/19 06:38 ABG O2 Saturation 97.0 % (95.0-99.0) 03/19/19 04:23 ABG O2 Content 7.9 (0.0-44) 03/19/19 04:23 POC ABG Base Excess 8 ((-2) - (+3)mmol/L) 03/18/19 06:38 ABG Base Excess 5.8 mmol/L (-2.0-3.0) H 03/19/19 04:23 ABG Hemoglobin 5.8 gm/dl (14.0-18.0) L 03/19/19 04:23 ABG Carboxyhemoglobin 2.0 % (0.0-5.0) 03/19/19 04:23 ABG Methemoglobin 0.4 % (0.0-1.5) 03/19/19 04:23 94.6 % (95.0-99.0) L 03/19/19 04:23 35 % 03/19/19 04:23 Sodium 141 mmol/L (137-145) 04/13/19 07:31 Potassium 3.8 mmol/L (3.6-5.0) 04/13/19 07:31 Chloride 96.4 mmol/L (98-107) L 04/13/19 07:31 Carbon Dioxide 33 mmol/L (22-30) H 04/13/19 07:31 15 mmol/L 04/13/19 07:31 BUN 66 mg/dL (9-20) H 04/13/19 07:31 4.5 mg/dL (0.8-1.5) H 04/13/19 07:31 Estimated GFR 16 ml/min 04/13/19 07:31 15 % 04/13/19 07:31 Glucose 103 mg/dL (75-100) H 04/13/19 07:31 POC Glucose 127 (70-105) H 04/17/19 01:00 Lactic Acid 1.00 mmol/L (0.7-2.0) 02/21/19 20:58 Calcium 9.8 mg/dL (8.4-10.2) 04/13/19 07:31 Phosphorus 4.30 mg/dL (2.5-4.5) D 03/31/19 10:26 Magnesium 2.70 mg/dL (1.7-2.3) H 03/30/19 10:13 0.20 mg/dL (0.1-1.2) 03/30/19 10:13 AST 16 units/L (5-40) 03/30/19 10:13 ALT 11 units/L (7-56) 03/30/19 10:13 185 units/L (35-129) H 03/30/19 10:13 28.0 umol/L (25-60) 02/21/19 20:04 64 units/L (55-170) 02/22/19 03:42 CK-MB (CK-2) 3.7 ng/mL (0.0-4.0) 02/22/19 03:42 CK-MB (CK-2) Rel Index 5.7 (0-4) H 02/22/19 03:42 0.193 ng/mL (0.00-0.029) H* 02/22/19 03:42 6.9 g/dL (6.3-8.2) 03/30/19 10:13 2.6 g/dL (3.9-5) L 03/30/19 10:13 0.6 % 03/30/19 10:13 Triglycerides 51 mg/dL (2-149) 02/21/19 18:30 Cholesterol 82 mg/dL (50-199) 02/21/19 18:30 36 mg/dL (50-130) L 02/21/19 18:30 40 mg/dL (40-59) 02/21/19 18:30 2.05 % 02/21/19 18:30 TSH 2.760 mlU/mL (0.270-4.200) 02/21/19 20:04 PTH Intact 267.6 pg/mL (15-65) H 03/02/19 05:15 Salicylates < 0.3 mg/dL (2.8-20.0) L 02/21/19 20:04 Acetaminophen < 5.0 ug/mL (10.0-30.0) L 02/21/19 20:04 Hepatitis A IgM Ab Non-reactive (NonReactive) 03/31/19 22:56 Hep Bs Antigen Non-reactive (Negative) 03/31/19 22:56 Hep B Core IgM Ab Non-reactive (NonReactive) 03/31/19 22:56 Non-reactive (NonReactive) 03/31/19 22:56 Blood Type O POSITIVE 03/22/19 08:48 Antibody Screen Negative 03/22/19 08:48 Crossmatch See Detail 03/22/19 08:48 Active Medications - Current Medications Current Medications: Generic Name Dose Route Start Last Admin Trade Name Freq PRN Reason Stop Dose Admin Albuterol/Ipratropium 1 ampul 02/24/19 20:00 04/17/19 08:47 Duoneb *Not For Prn Use* IH 1 ampul TIDRT SANCHEZ Administration Lipase/Protease/Amylase 1 each 04/10/19 15:16 Pancreaze 10,500 Unit FEEDTUBE PRN PRN For Clogged Feeding Tube Epoetin Solitario 20,000 unit 03/24/19 11:17 04/15/19 15:59 Procrit IV 20,000 unit UMA PRN Administration hemodialysis Famotidine 20 mg 02/23/19 10:00 04/17/19 09:48 Pepcid PO 20 mg DAILY SANCHEZ Administration Hydrophilic Ointment 1 applic 02/21/19 18:24 03/05/19 08:16 Vaseline Lip Therapy TP 1 applic Q2HR PRN Administration Dry Lips Sodium Chloride 100 mls @ 999 mls/hr 02/26/19 09:00 Nacl 0.9% IV UMA PRN Hypotension Insulin Human Regular 0 units 02/26/19 12:00 04/16/19 20:09 Humulin R SUB-Q Not Given Q6HR [facility] Protocol Metoprolol Tartrate 2.5 mg 02/28/19 12:06 03/15/19 05:15 Lopressor IV 2.5 mg Q4HR PRN Administration Tachycardia Multi-Ingred Cream/Lotion/Oil/Oint 1 applic 02/21/19 18:24 04/16/19 14:31 Artificial Tears Ophth Oint OU 1 applic Q4HR PRN Administration Dry Eye(s) Risperidone 1 mg 02/25/19 13:00 04/17/19 09:48 Risperdal PO 1 mg DAILY SANCHEZ Administration Sertraline HCl 100 mg 02/25/19 13:00 04/17/19 09:48 Zoloft PO 100 mg DAILY SANCHEZ Administration Simple Syrup 15 ml 04/10/19 15:16 Simple Syrup FEEDTUBE PRN PRN Hypoglycemia Simple Syrup 30 ml 04/10/19 15:16 Simple Syrup FEEDTUBE PRN PRN Hypoglycemia Sodium Bicarbonate 325 mg 04/10/19 15:16 Sodium Bicarbonate FEEDTUBE PRN PRN For Clogged Feeding Tube Sodium Hypochlorite 1 applic 04/01/19 13:00 04/17/19 09:48 Dakin's Half Strength TP 1 applicatio BID SANCHEZ Administration Nutrition/Malnutrition Assess - Dietary Evaluation Nutrition/Malnutrition Findings: Nutrition Notes Start: 02/22/19 12:51 Freq: Status: Active Protocol: Document 04/17/19 09:45 KS (Rec: 04/17/19 11:00 KS [id number]) Co-Sign 04/17/19 09:45 LM Nutrition Notes Initial or Follow up Reassessment Current Diagnosis Diabetes,Hypertension Other Pertinent Diagnosis Sacral PU, ESRD on HD (T/Thurs /Sat), Schizophrenia,Blind in L eye,S/P trach Current Diet Nepro at 50 ml/hr w/Abhilash BID Labs/Tests POC Glu - 127 Pertinent Medications Reviewed Height 5 ft 10 in Weight 78.2 kg [place] Body Weight (kg) 75.45 BMI 24.7 Subjective/Other Information Observed Nepro infusing at 50 ml/hr. RN states Abhilash not being given to pt. RN informed of reason for Abhilash. Percent of energy/protein needs met: 92%/100% Burn Absent Trauma Absent Minimum of two criteria No #2 Nutrition Diagnosis Increased nutrient needs ( specify in comment below) Diagnosis Progress(for reassessment Continues documentation) #1 Nutrition Diagnosis Inadequate oral intake Diagnosis Progress(for reassessment Continues documentation) Is patient on ventilator? No Is Patient Ambulatory and/or Out of Bed No REE-([facility]-confined to bed) 1898.108 Kcal/Kg value to use for calculation 30 Approximate Energy Requirements Using 2346 kcal/Kg Calculation Used for Recommendations Kcal/kg Additional Notes Protein Needs: 90-112g (1.2-1. 5g/kg) Fluid Needs: 1-1.5 L/day Nutrition Intervention Change Diet Order: Continue TF Nutrition Support: Nepro with Carbsteady 1.8 at 50 ml/hr Flush 200 ml q4hr Kcal 2,160 Protein (gm) 97 Fluid (mL) 872 Add Supplement/Snack (indicate name/kcal Abhilash BID /protein ) Provides kCal: 190 Provides Protein (gm) 5 Goal #1 TF tolerance Goal #2 Continue to meet at least 75% of calorie and protein needs via TF Anticipated Discharge Needs: TF Follow-Up By: 04/24/19 Additional Comments Follow for TF tolerance, Pt receiving Abhilash
[2019-04-18] MEDS: INSULIN REGULAR, HUMAN 100 UNITS/1 ML SUB-Q SCH ×4 (07:50→17:38)
[2019-04-18 08:17] LABS: Calcium 10.1 mg/dL (8.4-10.2)
[2019-04-18 08:26] LABS: Mean Corpuscular HGB Conc 30 % (32-34); Mean Corpuscular Volume 86 fl (84-94); Platelet Count 286 K/mm3 (140-440); Red Blood Count 3.49 M/mm3 (3.65-5.03)
[2019-04-18 08:40] LABS: Hematocrit 29.9 % (35.5-45.6)
[2019-04-18] MEDS: IPRATROPIUM/ALBUTEROL SULFATE 3 ML AMPUL.NEB IH SCH ×3 (08:46→19:34)
[2019-04-18] MEDS: FAMOTIDINE 20 MG TAB PO SCH (09:42)
[2019-04-18] MEDS: SODIUM HYPOCHLORITE, DAKIN'S 1/2 STRENGTH (0.25%) 473 ML TOPICAL SOLN TP SCH (09:42)
[2019-04-18] MEDS: SERTRALINE 100 MG TAB PO SCH (09:42)
[2019-04-18] MEDS: risperiDONE 1 MG TAB PO SCH (09:42)
--- NOTE | 2019-04-18 11:51 | Progress Note ---
Assessment and Plan Impression * End-stage renal disease on maintenance hemodialysis * Respiratory failure secondary to pneumonia +/- fluid overload. Status post trach * Hypokalemia * Sepsis * Schizophrenia * Chronic atrial fibrillation * Dementia * Sacral decubitus * Pleural effusion Recommendations * Continue dialysis on TTS schedule for now * Adjust diet and meds for ESRD state * His AV graft in his left upper arm seems to be functioning well for dialysis * No IV, BP of any puncture in his left upper arm * Procrit with dialysis * Avoid nephrotoxins * Monitor fluid status and electrolytes closely Subjective Date of service: 04/18/19 Principal diagnosis: Respiratory failure, acute on chronic systolic HF, ESRD Interval history: Patient is awake but nonverbal. Appears comfortable. Objective - Vital Signs Vital signs: Vital Signs - 12hr 04/17/19 04/18/19 04/18/19 23:50 04:31 08:00 Temperature 98.0 F 98.4 F Pulse Rate 85 Pulse Rate [ Anterior Bilateral Throughout] Respiratory 18 18 Rate Respiratory Rate [Anterior Bilateral Throughout] Blood Pressure 117/61 116/58 O2 Sat by Pulse 100 Oximetry O2 Sat by Pulse 99 Oximetry [ Assessment] 04/18/19 08:46 Temperature Pulse Rate Pulse Rate [ 89 Anterior Bilateral Throughout] Respiratory Rate Respiratory 20 Rate [Anterior Bilateral Throughout] Blood Pressure O2 Sat by Pulse 100 Oximetry O2 Sat by Pulse 100 Oximetry [ Assessment] - General Appearance General appearance: well-developed, well-nourished, appears stated age EENT: ATNC Neck: other (trach collar in place connected to T piece) Respiratory: Present: Clear to Ascultation Cardiology: regular, normal heart rate Gastrointestinal: other (PEG tube and colostomy bag in place) Integumentary: no rash, other (no edema. AV graft in his left upper arm. Good bruit and thrill.) - Lab 04/18/19 07:19 04/18/19 07:19 Most recent lab results ABG pH 7.424 pH Units (7.350-7.450) 03/19/19 04:23 ABG pCO2 48.0 mm Hg 03/19/19 04:23 ABG pO2 78.3 mm Hg (80.0-90.0) L 03/19/19 04:23 ABG HCO3 30.7 mmol/L (20.0-26.0) H 03/19/19 04:23 ABG O2 Saturation 97.0 % (95.0-99.0) 03/19/19 04:23 Calcium 10.1 mg/dL (8.4-10.2) 04/18/19 07:19 Phosphorus 4.30 mg/dL (2.5-4.5) D 03/31/19 10:26 Magnesium 2.70 mg/dL (1.7-2.3) H 03/30/19 10:13 Medications & Allergies - Medications Allergies/Adverse Reactions: Allergies haloperidol [From Haldol] Adverse Reaction (Verified 03/13/18 12:10) Unknown haloperidol lactate [From Haldol] Adverse Reaction (Verified 03/13/18 12:10) Unknown Home Medications: Home Medications Medication Instructions Recorded Confirmed Last Taken Type risperiDONE [RisperDAL] 1 mg PO QAM 03/13/18 02/21/19 Unknown History Sertraline [Zoloft] 100 mg PO QDAY 08/26/18 02/21/19 Unknown History Polyethylene Glycol 3350 [Miralax 17 gm PO QDAY #30 packet 11/05/18 02/21/19 Unknown Rx 3350] Aspirin EC [Halfprin EC] 81 mg PO DAILY #30 11/19/18 02/21/19 Unknown Rx Docusate Sodium [Colace CAP] 100 mg PO BID #60 11/19/18 02/21/19 Unknown Rx Folic Acid [Folvite] 1 mg PO DAILY #30 tab 11/19/18 02/21/19 Unknown Rx Famotidine [Pepcid] 20 mg PO DAILY tablet 12/08/18 02/21/19 Unknown Rx Gabapentin [Neurontin] 100 mg PO QHS capsule 12/08/18 02/21/19 Unknown Rx Metoprolol [Lopressor TAB] 50 mg PO BID 30 Days tablet 12/08/18 02/21/19 Unknown Rx Sevelamer Carbonate [Renvela] 800 mg PO TIDWM tablet 12/08/18 02/21/19 Unknown Rx hydrALAZINE [Apresoline TAB] 100 mg PO Q8HR #120 tablet 12/08/18 02/21/19 Unknown Rx Acetaminophen [Acetaminophen TAB] 650 mg PO Q12H PRN 12/15/18 02/21/19 Unknown History Glucagon,Human Recombinant 1 mg IJ Q15MIN PRN 12/15/18 02/21/19 Unknown History [Glucagon Emergency Kit] Insulin Aspart [NovoLOG 100 See Protocol SQ QWEEK 12/15/18 02/21/19 Unknown History UNITS/ML VIAL] Active Medications: Generic Name Dose Route Start Last Admin Trade Name Freq PRN Reason Stop Dose Admin Albuterol/Ipratropium 1 ampul 02/24/19 20:00 04/18/19 08:46 Duoneb *Not For Prn Use* IH 1 ampul TIDRT SANCHEZ Administration Lipase/Protease/Amylase 1 each 04/10/19 15:[address] 10,500 Unit FEEDTUBE PRN PRN For Clogged Feeding Tube Epoetin Solitario 20,000 unit 03/24/19 11:17 04/15/19 15:59 Procrit IV 20,000 unit UMA PRN Administration hemodialysis Famotidine 20 mg 02/23/19 10:00 04/18/19 09:42 Pepcid PO 20 mg DAILY SANCHEZ Administration Hydrophilic Ointment 1 applic 02/21/19 18:24 03/05/19 08:16 Vaseline Lip Therapy TP 1 applic Q2HR PRN Administration Dry Lips Sodium Chloride 100 mls @ 999 mls/hr 02/26/19 09:00 Nacl 0.9% IV UMA PRN Hypotension Insulin Human Regular 0 units 02/26/19 12:00 04/18/19 07:51 Humulin R SUB-Q Not Given Q6HR [facility] Protocol Metoprolol Tartrate 2.5 mg 02/28/19 12:06 03/15/19 05:15 Lopressor IV 2.5 mg Q4HR PRN Administration Tachycardia Multi-Ingred Cream/Lotion/Oil/Oint 1 applic 02/21/19 18:24 04/16/19 14:31 Artificial Tears Ophth Oint OU 1 applic Q4HR PRN Administration Dry Eye(s) Risperidone 1 mg 02/25/19 13:00 04/18/19 09:42 Risperdal PO 1 mg DAILY SANCHEZ Administration Sertraline HCl 100 mg 02/25/19 13:00 04/18/19 09:42 Zoloft PO 100 mg DAILY SANCHEZ Administration Simple Syrup 15 ml 04/10/19 15:16 Simple Syrup FEEDTUBE PRN PRN Hypoglycemia Simple Syrup 30 ml 04/10/19 15:16 Simple Syrup FEEDTUBE PRN PRN Hypoglycemia Sodium Bicarbonate 325 mg 04/10/19 15:16 Sodium Bicarbonate FEEDTUBE PRN PRN For Clogged Feeding Tube Sodium Hypochlorite 1 applic 04/01/19 13:00 04/18/19 09:42 Dakin's Half Strength TP 1 applicatio BID SANCHEZ Administration
--- NOTE | 2019-04-18 12:49 | Progress Note ---
Assessment and Plan Assessment and plan: Day 52, which is my first day caring for patient on this admission. Patient is a 63-year-old -[place] man from [facility] with a plethora of co-morbidities including blindness, CVA, CHF, PPM/ICD, loop recorder since 2012 that is MRI compatible, IDDM type 2, sepsis left foot ulcer, afib, ESRD with complications on HD TTS, hypertension, AOCD and GERD who presented to the ED with hypotensive after intubation in the emergency room. Still intubated, diagnosed with fluid overload, pleural effusion. Patient has had recurrent admission in the hospital for similar reason and was recently discharged from the hospital following treatment of Severe Sepsis due to Necrotizing Unstagable sacral decubitus ulcer with ostemomylitis, expected to complete abx on discharge till 02/16/19. Trach and peg done and LTAC transfer with anticipated longer weaning process and wound care management. HR control improved with change in BB. Acute respiratory failure on mechanical ventilator >96 hrs - Currently on trach placed on 03/03 Pulm consult appreciated weaning trial VAP BUNDLE ASPIRATION BUNDLE Continue T-piece Finished therapy for Acinetobacter Acute pulmonary edema, fluid overload on CXR repeat xray intermittently Dialysis Necrotizing Unstagable sacral decubitus ulcer with ostemomyelitis Wound care, Dilated CMP Cardiomyiopathy EF 35-40% Continue diuresis PPM/ICD Acute encephalopathy, probably metabolic or toxic Continues on Mechanical ventilator. ESRD on hemodialysis nephrology following Vascular eval. done re: LUE AV graft, see note Bilateral pleural effusions Anticipate improvement with Permanent atrial fibrillation and flutter Not on anticoagulation because of anemia thrombocytopenia Change noted to BB agent to IV. 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 -Pt is s/p x1 DDVAP RUL atelectasis, nebs as needed DVT prophylaxis Lovenox DNR poor prognosis Awaiting on placement History Interval history: Patient was seen and examined. Follow-up on current diagnosis. No overnight events reported to me. Patient is mainly nonverbal. Imaging, nursing note, chart, labs and old chart reviewed. Hospitalist Physical - Physical exam Narrative exam: Gen: severely disable, nad, awake alert x 1 HEENT: NCAT, EOMI, PERRL, OP Clear Neck: supple, trach CVS/Heart: irreg irregular, normal S1S2, pulses present bilaterally Chest/Lungs: diminished bs ymmetrical chest expansion, good air entry bilaterally GI/Abdomen:peg, colostomy present, good bowel sounds, no guarding or rebound /Bladder: no suprapubic tenderness, no CVA or paraspinal tenderness Extermity/Skin: no c/c/e, no obvious rash MSK: no FROM x 4 Neuro: CN 2-12 grossly intact except vision, no new focal deficits Psych: calm - Constitutional Vitals: Temp Pulse Resp BP Pulse Ox 97.2 F L 89 18 115/60 100 04/18/19 12:09 04/18/19 08:46 04/18/19 12:09 04/18/19 12:09 04/18/19 08:46 General appearance: Present: no acute distress, well-nourished Results - Labs CBC & Chem 7: 04/18/19 07:19 04/18/19 07:19 Labs: Laboratory Last Values WBC 9.6 K/mm3 (4.5-11.0) 04/18/19 07:19 RBC 3.49 M/mm3 (3.65-5.03) L 04/18/19 07:19 Hgb 9.0 gm/dl (11.8-15.2) L 04/18/19 07:19 Hct 29.9 % (35.5-45.6) L 04/18/19 07:19 MCV 86 fl (84-94) 04/18/19 07:19 MCH 26 pg (28-32) L 04/18/19 07:19 MCHC 30 % (32-34) L 04/18/19 07:19 RDW 20.0 % (13.2-15.2) H 04/18/19 07:19 Plt Count 286 K/mm3 (140-440) 04/18/19 07:19 Lymph % (Auto) 13.3 % (13.4-35.0) L 03/31/19 10:26 [place] % (Auto) 6.5 % (0.0-7.3) 03/31/19 10: Eos % (Auto) 7.2 % (0.0-4.3) H 03/31/19 10: Baso % (Auto) 0.9 % (0.0-1.8) 03/31/19 10: Lymph # 1.1 K/mm3 (1.2-5.4) L 03/31/19 10: [place] # 0.5 K/mm3 (0.0-0.8) 03/31/19 10: Eos # 0.6 K/mm3 (0.0-0.4) H 03/31/19 10: Baso # 0.1 K/mm3 (0.0-0.1) 03/31/19 10:26 Add Manual Diff Complete 03/21/19 06:30 Total Counted 100 03/21/19 06:30 Seg Neutrophils % 72.1 % (40.0-70.0) H 03/31/19 10: Seg Neuts % (Manual) 81.0 % (40.0-70.0) H 03/21/19 06:30 0 % 03/21/19 06:30 8.0 % (13.4-35.0) L 03/21/19 06:30 Reactive Lymphs % (Man) 0 % 03/21/19 06:30 1.0 % (0.0-7.3) 03/21/19 06:30 8.0 % (0.0-4.3) H 03/21/19 06:30 1.0 % (0.0-1.8) 03/21/19 06:30 1.0 % 03/21/19 06:30 0 % 03/21/19 06:30 0 % 03/21/19 06:30 0 % 03/21/19 06:30 Nucleated RBC % Not Reportable 03/21/19 06:30 Seg Neutrophils # 6.0 K/mm3 (1.8-7.7) 03/31/19 10: Seg Neutrophils # Man 6.7 K/mm3 (1.8-7.7) 03/21/19 06:30 Band Neutrophils # 0.0 K/mm3 03/21/19 06:30 0.7 K/mm3 (1.2-5.4) L 03/21/19 06:30 Abs React Lymphs (Man) 0.0 K/mm3 03/21/19 06:30 0.1 K/mm3 (0.0-0.8) 03/21/19 06:30 0.7 K/mm3 (0.0-0.4) H 03/21/19 06:30 0.1 K/mm3 (0.0-0.1) 03/21/19 06:30 0.1 K/mm3 03/21/19 06:30 0.0 K/mm3 03/21/19 06:30 0.0 K/mm3 03/21/19 06:30 Blast Cells # 0.0 K/mm3 03/21/19 06:30 WBC Morphology Not Reportable 03/21/19 06:30 Hypersegmented Neuts Not Reportable 03/21/19 06:30 Hyposegmented Neuts Not Reportable 03/21/19 06:30 Hypogranular Neuts Not Reportable 03/21/19 06:30 Not Reportable 03/21/19 06:30 Not Reportable 03/21/19 06:30 Not Reportable 03/21/19 06:30 Not Reportable 03/21/19 06:30 Not Reportable 03/21/19 06:30 Not Reportable 03/21/19 06:30 Consistent w auto 03/21/19 06:30 Not Reportable 03/21/19 06:30 Plt Clumps, EDTA Not Reportable 03/21/19 06:30 Not Reportable 03/21/19 06:30 Not Reportable 03/21/19 06:30 Not Reportable 03/21/19 06:30 Plt Morphology Comment Not Reportable 03/21/19 06:30 RBC Morphology Not Reportable 03/21/19 06:30 Dimorphic RBCs Not Reportable 03/21/19 06:30 Not Reportable 03/21/19 06:30 Few 03/21/19 06:30 Few 03/21/19 06:30 Few 03/21/19 06:30 Not Reportable 03/21/19 06:30 Not Reportable 03/21/19 06:30 Not Reportable 03/21/19 06:30 Not Reportable 03/21/19 06:30 Not Reportable 03/21/19 06:30 1+ 03/21/19 06:30 Not Reportable 03/21/19 06:30 Few 03/21/19 06:30 Not Reportable 03/21/19 06:30 Not Reportable 03/21/19 06:30 Not Reportable 03/21/19 06:30 Not Reportable 03/21/19 06:30 Not Reportable 03/21/19 06:30 Not Reportable 03/21/19 06:30 Not Reportable 03/21/19 06:30 Acanthocytes (Spur) Not Reportable 03/21/19 06:30 Rouleaux Not Reportable 03/21/19 06:30 Not Reportable 03/21/19 06:30 Not Reportable 03/21/19 06:30 Not Reportable 03/21/19 06:30 Not Reportable 03/21/19 06:30 Hem Pathologist Commnt No 03/21/19 06:30 PT 16.3 Sec. (12.2-14.9) H 03/01/19 09:39 INR 1.35 (0.87-1.13) H 03/01/19 09:39 APTT 33.7 Sec. (24.2-36.6) 02/21/19 18:30 2987.82 ng/mlDDU (0-234) H 02/22/19 05:54 POC ABG pH 7.510 (7.35-7.45) H 03/18/19 06:38 ABG pH 7.424 pH Units (7.350-7.450) 03/19/19 04:23 POC ABG pCO2 38.9 (35-45) 03/18/19 06:38 ABG pCO2 48.0 mm Hg 03/19/19 04:23 POC ABG pO2 164 (80-105) H 03/18/19 06:38 ABG pO2 78.3 mm Hg (80.0-90.0) L 03/19/19 04:23 POC ABG HCO3 31.0 (22-26 mml/L) 03/18/19 06:38 ABG HCO3 30.7 mmol/L (20.0-26.0) H 03/19/19 04:23 POC ABG Total CO2 32 (23-27mmol/L) 03/18/19 06:38 POC ABG O2 Sat 100 03/18/19 06:38 ABG O2 Saturation 97.0 % (95.0-99.0) 03/19/19 04:23 ABG O2 Content 7.9 (0.0-44) 03/19/19 04:23 POC ABG Base Excess 8 ((-2) - (+3)mmol/L) 03/18/19 06:38 ABG Base Excess 5.8 mmol/L (-2.0-3.0) H 03/19/19 04:23 ABG Hemoglobin 5.8 gm/dl (14.0-18.0) L 03/19/19 04:23 ABG Carboxyhemoglobin 2.0 % (0.0-5.0) 03/19/19 04:23 ABG Methemoglobin 0.4 % (0.0-1.5) 03/19/19 04:23 94.6 % (95.0-99.0) L 03/19/19 04:23 35 % 03/19/19 04:23 Sodium 145 mmol/L (137-145) 04/18/19 07:19 Potassium 3.6 mmol/L (3.6-5.0) 04/18/19 07:19 Chloride 99.1 mmol/L (98-107) 04/18/19 07:19 Carbon Dioxide 30 mmol/L (22-30) 04/18/19 07:19 20 mmol/L 04/18/19 07:19 BUN 41 mg/dL (9-20) H 04/18/19 07:19 2.9 mg/dL (0.8-1.5) H 04/18/19 07:19 Estimated GFR 27 ml/min 04/18/19 07:19 14 % 04/18/19 07:19 Glucose 122 mg/dL (75-100) H 04/18/19 07:19 POC Glucose 125 (70-105) H 04/18/19 12:16 Lactic Acid 1.00 mmol/L (0.7-2.0) 02/21/19 20:58 Calcium 10.1 mg/dL (8.4-10.2) 04/18/19 07:19 Phosphorus 4.30 mg/dL (2.5-4.5) D 03/31/19 10:26 Magnesium 2.70 mg/dL (1.7-2.3) H 03/30/19 10:13 0.20 mg/dL (0.1-1.2) 03/30/19 10:13 AST 16 units/L (5-40) 03/30/19 10:13 ALT 11 units/L (7-56) 03/30/19 10:13 185 units/L (35-129) H 03/30/19 10:13 28.0 umol/L (25-60) 02/21/19 20:04 64 units/L (55-170) 02/22/19 03:42 CK-MB (CK-2) 3.7 ng/mL (0.0-4.0) 02/22/19 03:42 CK-MB (CK-2) Rel Index 5.7 (0-4) H 02/22/19 03:42 0.193 ng/mL (0.00-0.029) H* 02/22/19 03:42 6.9 g/dL (6.3-8.2) 03/30/19 10:13 2.6 g/dL (3.9-5) L 03/30/19 10:13 0.6 % 03/30/19 10:13 Triglycerides 51 mg/dL (2-149) 02/21/19 18:30 Cholesterol 82 mg/dL (50-199) 02/21/19 18:30 36 mg/dL (50-130) L 02/21/19 18:30 40 mg/dL (40-59) 02/21/19 18:30 2.05 % 02/21/19 18:30 TSH 2.760 mlU/mL (0.270-4.200) 02/21/19 20:04 PTH Intact 267.6 pg/mL (15-65) H 03/02/19 05:15 Salicylates < 0.3 mg/dL (2.8-20.0) L 02/21/19 20:04 Acetaminophen < 5.0 ug/mL (10.0-30.0) L 02/21/19 20:04 Hepatitis A IgM Ab Non-reactive (NonReactive) 03/31/19 22:56 Hep Bs Antigen Non-reactive (Negative) 03/31/19 22:56 Hep B Core IgM Ab Non-reactive (NonReactive) 03/31/19 22:56 Non-reactive (NonReactive) 03/31/19 22:56 Blood Type O POSITIVE 03/22/19 08:48 Antibody Screen Negative 03/22/19 08:48 Crossmatch See Detail 03/22/19 08:48 Active Medications - Current Medications Current Medications: Generic Name Dose Route Start Last Admin Trade Name Freq PRN Reason Stop Dose Admin Albuterol/Ipratropium 1 ampul 02/24/19 20:00 04/18/19 08:46 Duoneb *Not For Prn Use* IH 1 ampul TIDRT SANCHEZ Administration Lipase/Protease/Amylase 1 each 04/10/19 15:16 Pancreaze 10,500 Unit FEEDTUBE PRN PRN For Clogged Feeding Tube Epoetin Solitario 20,000 unit 03/24/19 11:17 04/15/19 15:59 Procrit IV 20,000 unit UMA PRN Administration hemodialysis Famotidine 20 mg 02/23/19 10:00 04/18/19 09:42 Pepcid PO 20 mg DAILY SANCHEZ Administration Hydrophilic Ointment 1 applic 02/21/19 18:24 03/05/19 08:16 Vaseline Lip Therapy TP 1 applic Q2HR PRN Administration Dry Lips Sodium Chloride 100 mls @ 999 mls/hr 02/26/19 09:00 Nacl 0.9% IV UMA PRN Hypotension Insulin Human Regular 0 units 02/26/19 12:00 04/18/19 07:51 Humulin R SUB-Q Not Given Q6HR [facility] Protocol Metoprolol Tartrate 2.5 mg 02/28/19 12:06 03/15/19 05:15 Lopressor IV 2.5 mg Q4HR PRN Administration Tachycardia Multi-Ingred Cream/Lotion/Oil/Oint 1 applic 02/21/19 18:24 04/16/19 14:31 Artificial Tears Ophth Oint OU 1 applic Q4HR PRN Administration Dry Eye(s) Risperidone 1 mg 02/25/19 13:00 04/18/19 09:42 Risperdal PO 1 mg DAILY SANCHEZ Administration Sertraline HCl 100 mg 02/25/19 13:00 04/18/19 09:42 Zoloft PO 100 mg DAILY SANCHEZ Administration Simple Syrup 15 ml 04/10/19 15:16 Simple Syrup FEEDTUBE PRN PRN Hypoglycemia Simple Syrup 30 ml 04/10/19 15:16 Simple Syrup FEEDTUBE PRN PRN Hypoglycemia Sodium Bicarbonate 325 mg 04/10/19 15:16 Sodium Bicarbonate FEEDTUBE PRN PRN For Clogged Feeding Tube Sodium Hypochlorite 1 applic 04/01/19 13:00 04/18/19 09:42 Dakin's Half Strength TP 1 applicatio BID SANCHEZ Administration Nutrition/Malnutrition Assess - Dietary Evaluation Nutrition/Malnutrition Findings: Nutrition Notes Start: 02/22/19 12:51 Freq: Status: Active Protocol: Document 04/17/19 09:45 KS (Rec: 04/17/19 11:00 KS [id number]) Co-Sign 04/17/19 09:45 LM Nutrition Notes Initial or Follow up Reassessment Current Diagnosis Diabetes,Hypertension Other Pertinent Diagnosis Sacral PU, ESRD on HD (T/Thurs /Sat), Schizophrenia,Blind in L eye,S/P trach Current Diet Nepro at 50 ml/hr w/Abhilash BID Labs/Tests POC Glu - 127 Pertinent Medications Reviewed Height 5 ft 10 in Weight 78.2 kg [place] Body Weight (kg) 75.45 BMI 24.7 Subjective/Other Information Observed Nepro infusing at 50 ml/hr. RN states Abhilash not being given to pt. RN informed of reason for Abhilash. Percent of energy/protein needs met: 92%/100% Burn Absent Trauma Absent Minimum of two criteria No #2 Nutrition Diagnosis Increased nutrient needs ( specify in comment below) Diagnosis Progress(for reassessment Continues documentation) #1 Nutrition Diagnosis Inadequate oral intake Diagnosis Progress(for reassessment Continues documentation) Is patient on ventilator? No Is Patient Ambulatory and/or Out of Bed No REE-([facility]-confined to bed) 1898.108 Kcal/Kg value to use for calculation 30 Approximate Energy Requirements Using 2346 kcal/Kg Calculation Used for Recommendations Kcal/kg Additional Notes Protein Needs: 90-112g (1.2-1. 5g/kg) Fluid Needs: 1-1.5 L/day Nutrition Intervention Change Diet Order: Continue TF Nutrition Support: Nepro with Carbsteady 1.8 at 50 ml/hr Flush 200 ml q4hr Kcal 2,160 Protein (gm) 97 Fluid (mL) 872 Add Supplement/Snack (indicate name/kcal Abhilash BID /protein ) Provides kCal: 190 Provides Protein (gm) 5 Goal #1 TF tolerance Goal #2 Continue to meet at least 75% of calorie and protein needs via TF Anticipated Discharge Needs: TF Follow-Up By: 04/24/19 Additional Comments Follow for TF tolerance, Pt receiving Abhilash
--- NOTE | 2019-04-18 15:52 | Progress Note ---
Assessment and Plan 63 y/o male with multiple medical issues admitted with altered mental status, acute respiratory failure requiring mechanical ventilation No new recs, please see below. 1. Tolerating T-piece will continue. 2. Will ask RT about weaning the amount of flow 3. Consider speech consult for PMV trials. Patient had Peg tube long before trach but maybe, if he can tolerate PMV, maybe able to tolerate being capped. Currently has a number 8 cuffed trach. If Speech needs smaller cannula can ask RT to change out. 4. CM working on placement Subjective Date of service: 04/18/19 Principal diagnosis: Respiratory failure, acute on chronic systolic HF, ESRD Interval history: No acute events. Remains on T-piece. Clinically no change Objective Vital Signs - 12hr 04/18/19 04/18/19 04/18/19 04:31 08:00 08:46 Temperature 98.0 F 98.4 F Pulse Rate 85 Pulse Rate [ 89 Anterior Bilateral Throughout] Respiratory 18 18 Rate Respiratory 20 Rate [Anterior Bilateral Throughout] Blood Pressure 117/61 116/58 O2 Sat by Pulse 100 100 Oximetry O2 Sat by Pulse 100 Oximetry [ Assessment] 04/18/19 04/18/19 12:09 14:03 Temperature 97.2 F L Pulse Rate Pulse Rate [ 86 Anterior Bilateral Throughout] Respiratory 18 Rate Respiratory 20 Rate [Anterior Bilateral Throughout] Blood Pressure 115/60 O2 Sat by Pulse Oximetry O2 Sat by Pulse Oximetry [ Assessment] Constitutional: no acute distress, alert Eyes: non-icteric ENT: oropharynx moist Neck: supple Effort: normal Ascultation: Bilateral: diminished breath sounds, other (coarse BS bilaterally) Percussion: Bilateral: not dull Cardiovascular: other (tachy, RR; no mrg) Gastrointestinal: normoactive bowel sounds, soft, non-tender, non-distended, other (ostomy in place, brown stool) Extremities: no cyanosis, no edema, pink and warm Neurologic: other (mild weakness LUE, o/w nonfocal) Psychiatric: other (unable to assess) CBC and BMP: 04/18/19 07:19 04/18/19 07:19 ABG, PT/INR, D-dimer: ABG POC ABG pH 7.510 (7.35-7.45) H 03/18/19 06:38 ABG pH 7.424 pH Units (7.350-7.450) 03/19/19 04:23 POC ABG pCO2 38.9 (35-45) 03/18/19 06:38 ABG pCO2 48.0 mm Hg 03/19/19 04:23 POC ABG pO2 164 (80-105) H 03/18/19 06:38 ABG pO2 78.3 mm Hg (80.0-90.0) L 03/19/19 04:23 POC ABG HCO3 31.0 (22-26 mml/L) 03/18/19 06:38 POC ABG Total CO2 32 (23-27mmol/L) 03/18/19 06:38 POC ABG O2 Sat 100 03/18/19 06:38 ABG O2 Saturation 97.0 % (95.0-99.0) 03/19/19 04:23 PT/INR, D-dimer PT 16.3 Sec. (12.2-14.9) H 03/01/19 09:39 INR 1.35 (0.87-1.13) H 03/01/19 09:39 2987.82 ng/mlDDU (0-234) H 02/22/19 05:54 Abnormal lab findings: Abnormal Labs 02/21/19 02/21/19 02/21/19 18:30 18:30 18:30 WBC RBC 3.26 L Hgb 8.8 L Hct 29.0 L MCH 27 L MCHC 30 L RDW 19.1 H Lymph % (Auto) 6.1 L [place] % (Auto) Eos % (Auto) Lymph # 0.4 L [place] # Eos # Seg Neutrophils % 86.2 H Seg Neuts % (Manual) Lymphocytes % (Manual) Eosinophils % (Manual) Seg Neutrophils # Lymphocytes # (Manual) Eosinophils # (Manual) PT INR D-Dimer POC ABG pH POC ABG pCO2 POC ABG pO2 ABG pO2 ABG HCO3 ABG Base Excess ABG Hemoglobin Oxyhemoglobin Sodium 133 L Potassium 3.3 L Chloride 93.1 L Carbon Dioxide 33 H BUN Creatinine Glucose 161 H POC Glucose Calcium Phosphorus Magnesium ALT Alkaline Phosphatase 136 H Total Creatine Kinase 37 L CK-MB (CK-2) Rel Index Troponin T 0.192 H* Albumin 2.4 L LDL Cholesterol Direct 36 L PTH Intact Salicylates Acetaminophen Crossmatch 02/21/19 02/21/19 02/21/19 18:42 20:04 20:04 WBC RBC Hgb Hct MCH MCHC RDW Lymph % (Auto) [place] % (Auto) Eos % (Auto) Lymph # [place] # Eos # Seg Neutrophils % Seg Neuts % (Manual) Lymphocytes % (Manual) Eosinophils % (Manual) Seg Neutrophils # Lymphocytes # (Manual) Eosinophils # (Manual) PT INR D-Dimer POC ABG pH POC ABG pCO2 56.7 H POC ABG pO2 291 H ABG pO2 ABG HCO3 ABG Base Excess ABG Hemoglobin Oxyhemoglobin Sodium Potassium Chloride Carbon Dioxide BUN Creatinine Glucose POC Glucose Calcium Phosphorus Magnesium ALT Alkaline Phosphatase Total Creatine Kinase CK-MB (CK-2) Rel Index Troponin T Albumin LDL Cholesterol Direct PTH Intact Salicylates < 0.3 L Acetaminophen < 5.0 L Crossmatch 02/21/19 02/22/19 02/22/19 22:35 03:42 03:42 WBC RBC 3.20 L Hgb 8.8 L Hct 27.6 L MCH MCHC RDW 18.9 H Lymph % (Auto) 7.4 L [place] % (Auto) Eos % (Auto) Lymph # 0.7 L [place] # Eos # Seg Neutrophils % 84.7 H Seg Neuts % (Manual) Lymphocytes % (Manual) Eosinophils % (Manual) Seg Neutrophils # Lymphocytes # (Manual) Eosinophils # (Manual) PT INR D-Dimer POC ABG pH POC ABG pCO2 POC ABG pO2 ABG pO2 ABG HCO3 ABG Base Excess ABG Hemoglobin Oxyhemoglobin Sodium 134 L Potassium 2.6 L* D Chloride Carbon Dioxide BUN Creatinine Glucose POC Glucose Calcium Phosphorus Magnesium ALT Alkaline Phosphatase Total Creatine Kinase CK-MB (CK-2) Rel Index 5.2 H Troponin T 0.202 H* Albumin LDL Cholesterol Direct PTH Intact Salicylates Acetaminophen Crossmatch 02/22/19 02/22/19 02/22/19 03:42 05:54 09:04 WBC RBC Hgb Hct MCH MCHC RDW Lymph % (Auto) [place] % (Auto) Eos % (Auto) Lymph # [place] # Eos # Seg Neutrophils % Seg Neuts % (Manual) Lymphocytes % (Manual) Eosinophils % (Manual) Seg Neutrophils # Lymphocytes # (Manual) Eosinophils # (Manual) PT INR D-Dimer 2987.82 H POC ABG pH 7.451 H POC ABG pCO2 POC ABG pO2 ABG pO2 ABG HCO3 ABG Base Excess ABG Hemoglobin Oxyhemoglobin Sodium Potassium Chloride Carbon Dioxide BUN Creatinine Glucose POC Glucose Calcium Phosphorus Magnesium ALT Alkaline Phosphatase Total Creatine Kinase CK-MB (CK-2) Rel Index 5.7 H Troponin T 0.193 H* Albumin LDL Cholesterol Direct PTH Intact Salicylates Acetaminophen Crossmatch 02/22/19 02/22/19 02/23/19 10:36 23:56 00:52 WBC RBC Hgb Hct MCH MCHC RDW Lymph % (Auto) [place] % (Auto) Eos % (Auto) Lymph # [place] # Eos # Seg Neutrophils % Seg Neuts % (Manual) Lymphocytes % (Manual) Eosinophils % (Manual) Seg Neutrophils # Lymphocytes # (Manual) Eosinophils # (Manual) PT INR D-Dimer POC ABG pH POC ABG pCO2 POC ABG pO2 ABG pO2 ABG HCO3 ABG Base Excess ABG Hemoglobin Oxyhemoglobin Sodium Potassium 3.1 L Chloride Carbon Dioxide BUN Creatinine Glucose POC Glucose 58 L 111 H Calcium Phosphorus Magnesium ALT Alkaline Phosphatase Total Creatine Kinase CK-MB (CK-2) Rel Index Troponin T Albumin LDL Cholesterol Direct PTH Intact Salicylates Acetaminophen Crossmatch 02/23/19 02/23/19 02/23/19 05:00 06:35 14:26 WBC RBC Hgb Hct MCH MCHC RDW Lymph % (Auto) [place] % (Auto) Eos % (Auto) Lymph # [place] # Eos # Seg Neutrophils % Seg Neuts % (Manual) Lymphocytes % (Manual) Eosinophils % (Manual) Seg Neutrophils # Lymphocytes # (Manual) Eosinophils # (Manual) PT INR D-Dimer POC ABG pH POC ABG pCO2 POC ABG pO2 ABG pO2 ABG HCO3 ABG Base Excess ABG Hemoglobin Oxyhemoglobin Sodium 135 L Potassium 3.1 L Chloride Carbon Dioxide BUN 21 H Creatinine 2.0 H Glucose 57 L POC Glucose 64 L 62 L Calcium Phosphorus Magnesium ALT Alkaline Phosphatase Total Creatine Kinase CK-MB (CK-2) Rel Index Troponin T Albumin LDL Cholesterol Direct PTH Intact Salicylates Acetaminophen Crossmatch 02/24/19 02/24/19 02/24/19 02:11 04:12 04:55 WBC RBC 2.84 L Hgb 7.8 L Hct 24.5 L MCH MCHC RDW 19.5 H Lymph % (Auto) [place] % (Auto) Eos % (Auto) Lymph # [place] # Eos # Seg Neutrophils % Seg Neuts % (Manual) Lymphocytes % (Manual) Eosinophils % (Manual) Seg Neutrophils # Lymphocytes # (Manual) Eosinophils # (Manual) PT INR D-Dimer POC ABG pH 7.511 H POC ABG pCO2 33.9 L POC ABG pO2 62 L ABG pO2 ABG HCO3 ABG Base Excess ABG Hemoglobin Oxyhemoglobin Sodium Potassium Chloride Carbon Dioxide BUN Creatinine Glucose POC Glucose 69 L Calcium Phosphorus Magnesium ALT Alkaline Phosphatase Total Creatine Kinase CK-MB (CK-2) Rel Index Troponin T Albumin LDL Cholesterol Direct PTH Intact Salicylates Acetaminophen Crossmatch 02/24/19 02/24/19 02/25/19 04:55 05:41 04:45 WBC RBC Hgb Hct MCH MCHC RDW Lymph % (Auto) [place] % (Auto) Eos % (Auto) Lymph # [place] # Eos # Seg Neutrophils % Seg Neuts % (Manual) Lymphocytes % (Manual) Eosinophils % (Manual) Seg Neutrophils # Lymphocytes # (Manual) Eosinophils # (Manual) PT INR D-Dimer POC ABG pH 7.466 H POC ABG pCO2 POC ABG pO2 75 L ABG pO2 ABG HCO3 ABG Base Excess ABG Hemoglobin Oxyhemoglobin Sodium Potassium Chloride Carbon Dioxide BUN Creatinine 1.8 H Glucose 73 L POC Glucose 127 H Calcium Phosphorus Magnesium ALT Alkaline Phosphatase Total Creatine Kinase CK-MB (CK-2) Rel Index Troponin T Albumin LDL Cholesterol Direct PTH Intact Salicylates Acetaminophen Crossmatch 02/25/19 02/25/19 02/26/19 16:34 21:33 03:45 WBC RBC 2.96 L Hgb 8.0 L Hct 25.8 L MCH 27 L MCHC 31 L RDW 20.0 H Lymph % (Auto) [place] % (Auto) Eos % (Auto) Lymph # [place] # Eos # Seg Neutrophils % Seg Neuts % (Manual) Lymphocytes % (Manual) Eosinophils % (Manual) Seg Neutrophils # Lymphocytes # (Manual) Eosinophils # (Manual) PT INR D-Dimer POC ABG pH POC ABG pCO2 POC ABG pO2 ABG pO2 ABG HCO3 ABG Base Excess ABG Hemoglobin Oxyhemoglobin Sodium Potassium Chloride Carbon Dioxide BUN Creatinine Glucose POC Glucose 141 H 106 H Calcium Phosphorus Magnesium ALT Alkaline Phosphatase Total Creatine Kinase CK-MB (CK-2) Rel Index Troponin T Albumin LDL Cholesterol Direct PTH Intact Salicylates Acetaminophen Crossmatch 02/26/19 02/26/19 02/26/19 03:45 04:13 07:53 WBC RBC Hgb Hct MCH MCHC RDW Lymph % (Auto) [place] % (Auto) Eos % (Auto) Lymph # [place] # Eos # Seg Neutrophils % Seg Neuts % (Manual) Lymphocytes % (Manual) Eosinophils % (Manual) Seg Neutrophils # Lymphocytes # (Manual) Eosinophils # (Manual) PT INR D-Dimer POC ABG pH 7.470 H POC ABG pCO2 POC ABG pO2 ABG pO2 ABG HCO3 ABG Base Excess ABG Hemoglobin Oxyhemoglobin Sodium Potassium Chloride Carbon Dioxide BUN Creatinine 1.8 H Glucose POC Glucose 110 H Calcium Phosphorus Magnesium ALT Alkaline Phosphatase Total Creatine Kinase CK-MB (CK-2) Rel Index Troponin T Albumin LDL Cholesterol Direct PTH Intact Salicylates Acetaminophen Crossmatch 02/26/19 02/26/19 02/27/19 11:56 17:43 00:12 WBC RBC Hgb Hct MCH MCHC RDW Lymph % (Auto) [place] % (Auto) Eos % (Auto) Lymph # [place] # Eos # Seg Neutrophils % Seg Neuts % (Manual) Lymphocytes % (Manual) Eosinophils % (Manual) Seg Neutrophils # Lymphocytes # (Manual) Eosinophils # (Manual) PT INR D-Dimer POC ABG pH POC ABG pCO2 POC ABG pO2 ABG pO2 ABG HCO3 ABG Base Excess ABG Hemoglobin Oxyhemoglobin Sodium Potassium Chloride Carbon Dioxide BUN Creatinine Glucose POC Glucose 112 H 127 H 127 H Calcium Phosphorus Magnesium ALT Alkaline Phosphatase Total Creatine Kinase CK-MB (CK-2) Rel Index Troponin T Albumin LDL Cholesterol Direct PTH Intact Salicylates Acetaminophen Crossmatch 02/27/19 02/27/19 02/27/19 04:35 13:15 18:02 WBC RBC Hgb Hct MCH MCHC RDW Lymph % (Auto) [place] % (Auto) Eos % (Auto) Lymph # [place] # Eos # Seg Neutrophils % Seg Neuts % (Manual) Lymphocytes % (Manual) Eosinophils % (Manual) Seg Neutrophils # Lymphocytes # (Manual) Eosinophils # (Manual) PT INR D-Dimer POC ABG pH 7.483 H POC ABG pCO2 POC ABG pO2 61 L ABG pO2 ABG HCO3 ABG Base Excess ABG Hemoglobin Oxyhemoglobin Sodium Potassium Chloride Carbon Dioxide BUN Creatinine Glucose POC Glucose 143 H 106 H Calcium Phosphorus Magnesium ALT Alkaline Phosphatase Total Creatine Kinase CK-MB (CK-2) Rel Index Troponin T Albumin LDL Cholesterol Direct PTH Intact Salicylates Acetaminophen Crossmatch 02/28/19 02/28/19 02/28/19 05:50 11:59 17:52 WBC RBC Hgb Hct MCH MCHC RDW Lymph % (Auto) [place] % (Auto) Eos % (Auto) Lymph # [place] # Eos # Seg Neutrophils % Seg Neuts % (Manual) Lymphocytes % (Manual) Eosinophils % (Manual) Seg Neutrophils # Lymphocytes # (Manual) Eosinophils # (Manual) PT INR D-Dimer POC ABG pH POC ABG pCO2 POC ABG pO2 ABG pO2 ABG HCO3 ABG Base Excess ABG Hemoglobin Oxyhemoglobin Sodium Potassium Chloride Carbon Dioxide BUN Creatinine Glucose POC Glucose 134 H 128 H 142 H Calcium Phosphorus Magnesium ALT Alkaline Phosphatase Total Creatine Kinase CK-MB (CK-2) Rel Index Troponin T Albumin LDL Cholesterol Direct PTH Intact Salicylates Acetaminophen Crossmatch 02/28/19 03/01/19 03/01/19 23:13 05:40 09:39 WBC RBC Hgb Hct MCH MCHC RDW Lymph % (Auto) [place] % (Auto) Eos % (Auto) Lymph # [place] # Eos # Seg Neutrophils % Seg Neuts % (Manual) Lymphocytes % (Manual) Eosinophils % (Manual) Seg Neutrophils # Lymphocytes # (Manual) Eosinophils # (Manual) PT 16.3 H INR 1.35 H D-Dimer POC ABG pH POC ABG pCO2 POC ABG pO2 ABG pO2 ABG HCO3 ABG Base Excess ABG Hemoglobin Oxyhemoglobin Sodium Potassium Chloride Carbon Dioxide BUN Creatinine Glucose POC Glucose 112 H 111 H Calcium Phosphorus Magnesium ALT Alkaline Phosphatase Total Creatine Kinase CK-MB (CK-2) Rel Index Troponin T Albumin LDL Cholesterol Direct PTH Intact Salicylates Acetaminophen Crossmatch 03/01/19 03/01/19 03/01/19 11:56 13:54 17:59 WBC RBC Hgb Hct MCH MCHC RDW Lymph % (Auto) [place] % (Auto) Eos % (Auto) Lymph # [place] # Eos # Seg Neutrophils % Seg Neuts % (Manual) Lymphocytes % (Manual) Eosinophils % (Manual) Seg Neutrophils # Lymphocytes # (Manual) Eosinophils # (Manual) PT INR D-Dimer POC ABG pH POC ABG pCO2 POC ABG pO2 ABG pO2 ABG HCO3 ABG Base Excess ABG Hemoglobin Oxyhemoglobin Sodium Potassium Chloride Carbon Dioxide BUN 33 H Creatinine 2.8 H D Glucose 176 H POC Glucose 199 H 147 H Calcium Phosphorus Magnesium ALT Alkaline Phosphatase Total Creatine Kinase CK-MB (CK-2) Rel Index Troponin T Albumin LDL Cholesterol Direct PTH Intact Salicylates Acetaminophen Crossmatch 03/02/19 03/02/19 03/02/19 05:15 05:15 05:15 WBC RBC 2.73 L Hgb 7.4 L Hct 23.0 L MCH 27 L MCHC RDW 19.9 H Lymph % (Auto) [place] % (Auto) 7.9 H Eos % (Auto) 7.6 H Lymph # 1.0 L [place] # Eos # 0.5 H Seg Neutrophils % Seg Neuts % (Manual) Lymphocytes % (Manual) Eosinophils % (Manual) Seg Neutrophils # Lymphocytes # (Manual) Eosinophils # (Manual) PT INR D-Dimer POC ABG pH POC ABG pCO2 POC ABG pO2 ABG pO2 ABG HCO3 ABG Base Excess ABG Hemoglobin Oxyhemoglobin Sodium Potassium Chloride Carbon Dioxide BUN 43 H Creatinine 3.2 H Glucose POC Glucose Calcium Phosphorus 2.30 L Magnesium ALT Alkaline Phosphatase Total Creatine Kinase CK-MB (CK-2) Rel Index Troponin T Albumin LDL Cholesterol Direct PTH Intact 267.6 H Salicylates Acetaminophen Crossmatch 03/02/19 03/02/19 03/03/19 12:32 18:20 13:30 WBC RBC Hgb Hct MCH MCHC RDW Lymph % (Auto) [place] % (Auto) Eos % (Auto) Lymph # [place] # Eos # Seg Neutrophils % Seg Neuts % (Manual) Lymphocytes % (Manual) Eosinophils % (Manual) Seg Neutrophils # Lymphocytes # (Manual) Eosinophils # (Manual) PT INR D-Dimer POC ABG pH POC ABG pCO2 POC ABG pO2 ABG pO2 ABG HCO3 ABG Base Excess ABG Hemoglobin Oxyhemoglobin Sodium Potassium Chloride 97.3 L Carbon Dioxide BUN 26 H Creatinine 2.2 H Glucose 73 L POC Glucose 111 H 156 H Calcium Phosphorus Magnesium ALT Alkaline Phosphatase Total Creatine Kinase CK-MB (CK-2) Rel Index Troponin T Albumin LDL Cholesterol Direct PTH Intact Salicylates Acetaminophen Crossmatch 03/04/19 03/04/19 03/04/19 00:02 05:37 05:40 WBC RBC 2.63 L Hgb 7.2 L Hct 22.2 L MCH MCHC RDW 20.2 H Lymph % (Auto) 10.5 L [place] % (Auto) Eos % (Auto) 4.6 H Lymph # 0.7 L [place] # Eos # Seg Neutrophils % 76.9 H Seg Neuts % (Manual) Lymphocytes % (Manual) Eosinophils % (Manual) Seg Neutrophils # Lymphocytes # (Manual) Eosinophils # (Manual) PT INR D-Dimer POC ABG pH POC ABG pCO2 POC ABG pO2 ABG pO2 ABG HCO3 ABG Base Excess ABG Hemoglobin Oxyhemoglobin Sodium Potassium Chloride Carbon Dioxide BUN Creatinine Glucose POC Glucose 136 H 123 H Calcium Phosphorus Magnesium ALT Alkaline Phosphatase Total Creatine Kinase CK-MB (CK-2) Rel Index Troponin T Albumin LDL Cholesterol Direct PTH Intact Salicylates Acetaminophen Crossmatch 03/04/19 03/04/19 03/04/19 05:40 11:39 23:20 WBC RBC Hgb Hct MCH MCHC RDW Lymph % (Auto) [place] % (Auto) Eos % (Auto) Lymph # [place] # Eos # Seg Neutrophils % Seg Neuts % (Manual) Lymphocytes % (Manual) Eosinophils % (Manual) Seg Neutrophils # Lymphocytes # (Manual) Eosinophils # (Manual) PT INR D-Dimer POC ABG pH POC ABG pCO2 POC ABG pO2 ABG pO2 ABG HCO3 ABG Base Excess ABG Hemoglobin Oxyhemoglobin Sodium Potassium Chloride Carbon Dioxide BUN 34 H Creatinine 2.7 H Glucose 114 H POC Glucose 175 H 151 H Calcium Phosphorus Magnesium ALT Alkaline Phosphatase Total Creatine Kinase CK-MB (CK-2) Rel Index Troponin T Albumin LDL Cholesterol Direct PTH Intact Salicylates Acetaminophen Crossmatch 03/05/19 03/05/19 03/05/19 05:37 12:08 17:11 WBC RBC Hgb Hct MCH MCHC RDW Lymph % (Auto) [place] % (Auto) Eos % (Auto) Lymph # [place] # Eos # Seg Neutrophils % Seg Neuts % (Manual) Lymphocytes % (Manual) Eosinophils % (Manual) Seg Neutrophils # Lymphocytes # (Manual) Eosinophils # (Manual) PT INR D-Dimer POC ABG pH POC ABG pCO2 POC ABG pO2 ABG pO2 ABG HCO3 ABG Base Excess ABG Hemoglobin Oxyhemoglobin Sodium Potassium Chloride Carbon Dioxide BUN Creatinine Glucose POC Glucose 134 H 135 H 135 H Calcium Phosphorus Magnesium ALT Alkaline Phosphatase Total Creatine Kinase CK-MB (CK-2) Rel Index Troponin T Albumin LDL Cholesterol Direct PTH Intact Salicylates Acetaminophen Crossmatch 03/06/19 03/06/19 03/06/19 00:16 13:05 18:09 WBC RBC Hgb Hct MCH MCHC RDW Lymph % (Auto) [place] % (Auto) Eos % (Auto) Lymph # [place] # Eos # Seg Neutrophils % Seg Neuts % (Manual) Lymphocytes % (Manual) Eosinophils % (Manual) Seg Neutrophils # Lymphocytes # (Manual) Eosinophils # (Manual) PT INR D-Dimer POC ABG pH POC ABG pCO2 POC ABG pO2 ABG pO2 ABG HCO3 ABG Base Excess ABG Hemoglobin Oxyhemoglobin Sodium Potassium Chloride Carbon Dioxide BUN Creatinine Glucose POC Glucose 117 H 113 H 131 H Calcium Phosphorus Magnesium ALT Alkaline Phosphatase Total Creatine Kinase CK-MB (CK-2) Rel Index Troponin T Albumin LDL Cholesterol Direct PTH Intact Salicylates Acetaminophen Crossmatch 03/07/19 03/08/19 03/08/19 05:25 05:33 16:00 WBC RBC 2.44 L Hgb 6.6 L Hct 20.8 L MCH 27 L MCHC RDW 19.2 H Lymph % (Auto) [place] % (Auto) Eos % (Auto) 8.6 H Lymph # 0.8 L [place] # Eos # 0.5 H Seg Neutrophils % 70.7 H Seg Neuts % (Manual) Lymphocytes % (Manual) Eosinophils % (Manual) Seg Neutrophils # Lymphocytes # (Manual) Eosinophils # (Manual) PT INR D-Dimer POC ABG pH POC ABG pCO2 POC ABG pO2 ABG pO2 ABG HCO3 ABG Base Excess ABG Hemoglobin Oxyhemoglobin Sodium Potassium Chloride Carbon Dioxide BUN Creatinine Glucose POC Glucose 106 H 108 H Calcium Phosphorus Magnesium ALT Alkaline Phosphatase Total Creatine Kinase CK-MB (CK-2) Rel Index Troponin T Albumin LDL Cholesterol Direct PTH Intact Salicylates Acetaminophen Crossmatch 03/08/19 03/08/19 03/08/19 16:00 18:38 Unknown WBC RBC Hgb Hct MCH MCHC RDW Lymph % (Auto) [place] % (Auto) Eos % (Auto) Lymph # [place] # Eos # Seg Neutrophils % Seg Neuts % (Manual) Lymphocytes % (Manual) Eosinophils % (Manual) Seg Neutrophils # Lymphocytes # (Manual) Eosinophils # (Manual) PT INR D-Dimer POC ABG pH POC ABG pCO2 POC ABG pO2 ABG pO2 ABG HCO3 ABG Base Excess ABG Hemoglobin Oxyhemoglobin Sodium Potassium 5.4 H D Chloride Carbon Dioxide BUN 47 H Creatinine 2.6 H Glucose POC Glucose 123 H Calcium Phosphorus Magnesium ALT < 5 L Alkaline Phosphatase Total Creatine Kinase CK-MB (CK-2) Rel Index Troponin T Albumin 2.2 L LDL Cholesterol Direct PTH Intact Salicylates Acetaminophen Crossmatch See Detail 03/09/19 03/09/19 03/09/19 10:48 12:28 13:53 WBC RBC 2.85 L Hgb 7.7 L Hct 24.2 L MCH 27 L MCHC RDW 18.7 H Lymph % (Auto) [place] % (Auto) Eos % (Auto) Lymph # [place] # Eos # Seg Neutrophils % Seg Neuts % (Manual) Lymphocytes % (Manual) Eosinophils % (Manual) Seg Neutrophils # Lymphocytes # (Manual) Eosinophils # (Manual) PT INR D-Dimer POC ABG pH POC ABG pCO2 POC ABG pO2 ABG pO2 ABG HCO3 30.5 H ABG Base Excess 5.6 H ABG Hemoglobin 8.1 L Oxyhemoglobin 93.8 L Sodium Potassium Chloride Carbon Dioxide BUN Creatinine Glucose POC Glucose 114 H Calcium Phosphorus Magnesium ALT Alkaline Phosphatase Total Creatine Kinase CK-MB (CK-2) Rel Index Troponin T Albumin LDL Cholesterol Direct PTH Intact Salicylates Acetaminophen Crossmatch 03/09/19 03/09/19 03/10/19 17:58 23:53 12:01 WBC RBC Hgb Hct MCH MCHC RDW Lymph % (Auto) [place] % (Auto) Eos % (Auto) Lymph # [place] # Eos # Seg Neutrophils % Seg Neuts % (Manual) Lymphocytes % (Manual) Eosinophils % (Manual) Seg Neutrophils # Lymphocytes # (Manual) Eosinophils # (Manual) PT INR D-Dimer POC ABG pH POC ABG pCO2 POC ABG pO2 ABG pO2 ABG HCO3 ABG Base Excess ABG Hemoglobin Oxyhemoglobin Sodium Potassium Chloride Carbon Dioxide BUN Creatinine Glucose POC Glucose 108 H 128 H 144 H Calcium Phosphorus Magnesium ALT Alkaline Phosphatase Total Creatine Kinase CK-MB (CK-2) Rel Index Troponin T Albumin LDL Cholesterol Direct PTH Intact Salicylates Acetaminophen Crossmatch 03/10/19 03/11/19 03/11/19 16:50 00:24 05:02 WBC RBC Hgb Hct MCH MCHC RDW Lymph % (Auto) [place] % (Auto) Eos % (Auto) Lymph # [place] # Eos # Seg Neutrophils % Seg Neuts % (Manual) Lymphocytes % (Manual) Eosinophils % (Manual) Seg Neutrophils # Lymphocytes # (Manual) Eosinophils # (Manual) PT INR D-Dimer POC ABG pH POC ABG pCO2 POC ABG pO2 ABG pO2 ABG HCO3 ABG Base Excess ABG Hemoglobin Oxyhemoglobin Sodium Potassium Chloride Carbon Dioxide BUN Creatinine Glucose POC Glucose 147 H 123 H 120 H Calcium Phosphorus Magnesium ALT Alkaline Phosphatase Total Creatine Kinase CK-MB (CK-2) Rel Index Troponin T Albumin LDL Cholesterol Direct PTH Intact Salicylates Acetaminophen Crossmatch 03/11/19 03/11/19 03/11/19 11:56 12:20 18:37 WBC RBC Hgb Hct MCH MCHC RDW Lymph % (Auto) [place] % (Auto) Eos % (Auto) Lymph # [place] # Eos # Seg Neutrophils % Seg Neuts % (Manual) Lymphocytes % (Manual) Eosinophils % (Manual) Seg Neutrophils # Lymphocytes # (Manual) Eosinophils # (Manual) PT INR D-Dimer POC ABG pH POC ABG pCO2 POC ABG pO2 ABG pO2 ABG HCO3 ABG Base Excess ABG Hemoglobin Oxyhemoglobin Sodium Potassium 5.2 H Chloride Carbon Dioxide BUN Creatinine Glucose POC Glucose 123 H 125 H Calcium Phosphorus Magnesium ALT Alkaline Phosphatase Total Creatine Kinase CK-MB (CK-2) Rel Index Troponin T Albumin LDL Cholesterol Direct PTH Intact Salicylates Acetaminophen Crossmatch 03/11/19 03/12/19 03/12/19 22:52 12:04 18:25 WBC RBC Hgb Hct MCH MCHC RDW Lymph % (Auto) [place] % (Auto) Eos % (Auto) Lymph # [place] # Eos # Seg Neutrophils % Seg Neuts % (Manual) Lymphocytes % (Manual) Eosinophils % (Manual) Seg Neutrophils # Lymphocytes # (Manual) Eosinophils # (Manual) PT INR D-Dimer POC ABG pH POC ABG pCO2 POC ABG pO2 ABG pO2 ABG HCO3 ABG Base Excess ABG Hemoglobin Oxyhemoglobin Sodium Potassium Chloride Carbon Dioxide BUN Creatinine Glucose POC Glucose 110 H 106 H 118 H Calcium Phosphorus Magnesium ALT Alkaline Phosphatase Total Creatine Kinase CK-MB (CK-2) Rel Index Troponin T Albumin LDL Cholesterol Direct PTH Intact Salicylates Acetaminophen Crossmatch 03/12/19 03/13/19 03/13/19 23:36 04:38 04:38 WBC RBC 2.95 L Hgb 7.9 L Hct 24.9 L MCH 27 L MCHC RDW 19.9 H Lymph % (Auto) 11.1 L [place] % (Auto) 8.1 H Eos % (Auto) 4.4 H Lymph # 0.9 L [place] # Eos # Seg Neutrophils % 75.4 H Seg Neuts % (Manual) Lymphocytes % (Manual) Eosinophils % (Manual) Seg Neutrophils # Lymphocytes # (Manual) Eosinophils # (Manual) PT INR D-Dimer POC ABG pH POC ABG pCO2 POC ABG pO2 ABG pO2 ABG HCO3 ABG Base Excess ABG Hemoglobin Oxyhemoglobin Sodium 136 L Potassium 5.1 H Chloride 93.8 L Carbon Dioxide BUN 48 H Creatinine 2.7 H Glucose 102 H POC Glucose 115 H Calcium Phosphorus Magnesium ALT < 5 L Alkaline Phosphatase 143 H Total Creatine Kinase CK-MB (CK-2) Rel Index Troponin T Albumin 2.5 L LDL Cholesterol Direct PTH Intact Salicylates Acetaminophen Crossmatch 03/13/19 03/13/19 03/13/19 05:33 13:37 18:03 WBC RBC Hgb Hct MCH MCHC RDW Lymph % (Auto) [place] % (Auto) Eos % (Auto) Lymph # [place] # Eos # Seg Neutrophils % Seg Neuts % (Manual) Lymphocytes % (Manual) Eosinophils % (Manual) Seg Neutrophils # Lymphocytes # (Manual) Eosinophils # (Manual) PT INR D-Dimer POC ABG pH POC ABG pCO2 POC ABG pO2 ABG pO2 ABG HCO3 ABG Base Excess ABG Hemoglobin Oxyhemoglobin Sodium Potassium Chloride Carbon Dioxide BUN Creatinine Glucose POC Glucose 140 H 150 H 158 H Calcium Phosphorus Magnesium ALT Alkaline Phosphatase Total Creatine Kinase CK-MB (CK-2) Rel Index Troponin T Albumin LDL Cholesterol Direct PTH Intact Salicylates Acetaminophen Crossmatch 03/13/19 03/14/19 03/14/19 23:32 05:24 12:20 WBC RBC Hgb Hct MCH MCHC RDW Lymph % (Auto) [place] % (Auto) Eos % (Auto) Lymph # [place] # Eos # Seg Neutrophils % Seg Neuts % (Manual) Lymphocytes % (Manual) Eosinophils % (Manual) Seg Neutrophils # Lymphocytes # (Manual) Eosinophils # (Manual) PT INR D-Dimer POC ABG pH POC ABG pCO2 POC ABG pO2 ABG pO2 ABG HCO3 ABG Base Excess ABG Hemoglobin Oxyhemoglobin Sodium Potassium Chloride Carbon Dioxide BUN Creatinine Glucose POC Glucose 162 H 146 H 127 H Calcium Phosphorus Magnesium ALT Alkaline Phosphatase Total Creatine Kinase CK-MB (CK-2) Rel Index Troponin T Albumin LDL Cholesterol Direct PTH Intact Salicylates Acetaminophen Crossmatch 03/14/19 03/14/19 03/15/19 18:05 23:57 04:38 WBC 12.8 H RBC 3.11 L Hgb 8.1 L Hct 26.5 L MCH 26 L MCHC 31 L RDW 19.7 H Lymph % (Auto) 4.4 L [place] % (Auto) 7.4 H Eos % (Auto) Lymph # 0.6 L [place] # 0.9 H Eos # Seg Neutrophils % 87.3 H Seg Neuts % (Manual) Lymphocytes % (Manual) Eosinophils % (Manual) Seg Neutrophils # 11.2 H Lymphocytes # (Manual) Eosinophils # (Manual) PT INR D-Dimer POC ABG pH POC ABG pCO2 POC ABG pO2 ABG pO2 ABG HCO3 ABG Base Excess ABG Hemoglobin Oxyhemoglobin Sodium Potassium Chloride Carbon Dioxide BUN Creatinine Glucose POC Glucose 142 H 155 H Calcium Phosphorus Magnesium ALT Alkaline Phosphatase Total Creatine Kinase CK-MB (CK-2) Rel Index Troponin T Albumin LDL Cholesterol Direct PTH Intact Salicylates Acetaminophen Crossmatch 03/15/19 03/15/19 03/15/19 04:38 05:31 11:32 WBC RBC Hgb Hct MCH MCHC RDW Lymph % (Auto) [place] % (Auto) Eos % (Auto) Lymph # [place] # Eos # Seg Neutrophils % Seg Neuts % (Manual) Lymphocytes % (Manual) Eosinophils % (Manual) Seg Neutrophils # Lymphocytes # (Manual) Eosinophils # (Manual) PT INR D-Dimer POC ABG pH POC ABG pCO2 POC ABG pO2 ABG pO2 ABG HCO3 ABG Base Excess ABG Hemoglobin Oxyhemoglobin Sodium 135 L Potassium Chloride 91.9 L Carbon Dioxide BUN 54 H Creatinine 2.8 H Glucose 128 H POC Glucose 160 H 109 H Calcium 11.1 H Phosphorus Magnesium ALT Alkaline Phosphatase 161 H Total Creatine Kinase CK-MB (CK-2) Rel Index Troponin T Albumin 2.3 L LDL Cholesterol Direct PTH Intact Salicylates Acetaminophen Crossmatch 03/15/19 03/15/19 03/16/19 18:15 23:41 05:40 WBC RBC Hgb Hct MCH MCHC RDW Lymph % (Auto) [place] % (Auto) Eos % (Auto) Lymph # [place] # Eos # Seg Neutrophils % Seg Neuts % (Manual) Lymphocytes % (Manual) Eosinophils % (Manual) Seg Neutrophils # Lymphocytes # (Manual) Eosinophils # (Manual) PT INR D-Dimer POC ABG pH POC ABG pCO2 POC ABG pO2 ABG pO2 ABG HCO3 ABG Base Excess ABG Hemoglobin Oxyhemoglobin Sodium Potassium Chloride Carbon Dioxide BUN Creatinine Glucose POC Glucose 151 H 110 H 163 H Calcium Phosphorus Magnesium ALT Alkaline Phosphatase Total Creatine Kinase CK-MB (CK-2) Rel Index Troponin T Albumin LDL Cholesterol Direct PTH Intact Salicylates Acetaminophen Crossmatch 03/16/19 03/16/19 03/16/19 11:55 17:04 23:58 WBC RBC Hgb Hct MCH MCHC RDW Lymph % (Auto) [place] % (Auto) Eos % (Auto) Lymph # [place] # Eos # Seg Neutrophils % Seg Neuts % (Manual) Lymphocytes % (Manual) Eosinophils % (Manual) Seg Neutrophils # Lymphocytes # (Manual) Eosinophils # (Manual) PT INR D-Dimer POC ABG pH POC ABG pCO2 POC ABG pO2 ABG pO2 ABG HCO3 ABG Base Excess ABG Hemoglobin Oxyhemoglobin Sodium Potassium Chloride Carbon Dioxide BUN Creatinine Glucose POC Glucose 114 H 147 H 192 H Calcium Phosphorus Magnesium ALT Alkaline Phosphatase Total Creatine Kinase CK-MB (CK-2) Rel Index Troponin T Albumin LDL Cholesterol Direct PTH Intact Salicylates Acetaminophen Crossmatch 03/17/19 03/17/19 03/17/19 05:53 11:17 17:01 WBC RBC Hgb Hct MCH MCHC RDW Lymph % (Auto) [place] % (Auto) Eos % (Auto) Lymph # [place] # Eos # Seg Neutrophils % Seg Neuts % (Manual) Lymphocytes % (Manual) Eosinophils % (Manual) Seg Neutrophils # Lymphocytes # (Manual) Eosinophils # (Manual) PT INR D-Dimer POC ABG pH POC ABG pCO2 POC ABG pO2 ABG pO2 ABG HCO3 ABG Base Excess ABG Hemoglobin Oxyhemoglobin Sodium Potassium Chloride Carbon Dioxide BUN Creatinine Glucose POC Glucose 151 H 161 H 152 H Calcium Phosphorus Magnesium ALT Alkaline Phosphatase Total Creatine Kinase CK-MB (CK-2) Rel Index Troponin T Albumin LDL Cholesterol Direct PTH Intact Salicylates Acetaminophen Crossmatch 03/17/19 03/18/19 03/18/19 21:47 04:15 04:44 WBC RBC Hgb Hct MCH MCHC RDW Lymph % (Auto) [place] % (Auto) Eos % (Auto) Lymph # [place] # Eos # Seg Neutrophils % Seg Neuts % (Manual) Lymphocytes % (Manual) Eosinophils % (Manual) Seg Neutrophils # Lymphocytes # (Manual) Eosinophils # (Manual) PT INR D-Dimer POC ABG pH POC ABG pCO2 POC ABG pO2 ABG pO2 102.8 H ABG HCO3 28.3 H ABG Base Excess ABG Hemoglobin 10.4 L Oxyhemoglobin 94.5 L Sodium Potassium Chloride Carbon Dioxide BUN Creatinine Glucose POC Glucose 170 H 150 H Calcium Phosphorus Magnesium ALT Alkaline Phosphatase Total Creatine Kinase CK-MB (CK-2) Rel Index Troponin T Albumin LDL Cholesterol Direct PTH Intact Salicylates Acetaminophen Crossmatch 03/18/19 03/18/19 03/18/19 06:38 12:12 17:47 WBC RBC Hgb Hct MCH MCHC RDW Lymph % (Auto) [place] % (Auto) Eos % (Auto) Lymph # [place] # Eos # Seg Neutrophils % Seg Neuts % (Manual) Lymphocytes % (Manual) Eosinophils % (Manual) Seg Neutrophils # Lymphocytes # (Manual) Eosinophils # (Manual) PT INR D-Dimer POC ABG pH 7.510 H POC ABG pCO2 POC ABG pO2 164 H ABG pO2 ABG HCO3 ABG Base Excess ABG Hemoglobin Oxyhemoglobin Sodium Potassium Chloride Carbon Dioxide BUN Creatinine Glucose POC Glucose 145 H 149 H Calcium Phosphorus Magnesium ALT Alkaline Phosphatase Total Creatine Kinase CK-MB (CK-2) Rel Index Troponin T Albumin LDL Cholesterol Direct PTH Intact Salicylates Acetaminophen Crossmatch 03/18/19 03/19/19 03/19/19 23:25 01:11 04:23 WBC 15.6 H RBC 2.51 L Hgb 6.5 L Hct 21.6 L MCH 26 L MCHC 30 L RDW 19.8 H Lymph % (Auto) 6.0 L [place] % (Auto) Eos % (Auto) Lymph # 0.9 L [place] # 1.0 H Eos # Seg Neutrophils % 85.5 H Seg Neuts % (Manual) Lymphocytes % (Manual) Eosinophils % (Manual) Seg Neutrophils # 13.4 H Lymphocytes # (Manual) Eosinophils # (Manual) PT INR D-Dimer POC ABG pH POC ABG pCO2 POC ABG pO2 ABG pO2 78.3 L ABG HCO3 30.7 H ABG Base Excess 5.8 H ABG Hemoglobin 5.8 L Oxyhemoglobin 94.6 L Sodium Potassium Chloride Carbon Dioxide BUN Creatinine Glucose POC Glucose 190 H Calcium Phosphorus Magnesium ALT Alkaline Phosphatase Total Creatine Kinase CK-MB (CK-2) Rel Index Troponin T Albumin LDL Cholesterol Direct PTH Intact Salicylates Acetaminophen Crossmatch 03/19/19 03/19/19 03/19/19 05:22 05:35 08:54 WBC RBC Hgb Hct MCH MCHC RDW Lymph % (Auto) [place] % (Auto) Eos % (Auto) Lymph # [place] # Eos # Seg Neutrophils % Seg Neuts % (Manual) Lymphocytes % (Manual) Eosinophils % (Manual) Seg Neutrophils # Lymphocytes # (Manual) Eosinophils # (Manual) PT INR D-Dimer POC ABG pH POC ABG pCO2 POC ABG pO2 ABG pO2 ABG HCO3 ABG Base Excess ABG Hemoglobin Oxyhemoglobin Sodium Potassium Chloride Carbon Dioxide BUN Creatinine Glucose POC Glucose 167 H Calcium Phosphorus Magnesium ALT Alkaline Phosphatase Total Creatine Kinase CK-MB (CK-2) Rel Index Troponin T Albumin LDL Cholesterol Direct PTH Intact Salicylates Acetaminophen Crossmatch See Detail See Detail 03/19/19 03/19/19 03/19/19 12:36 17:02 23:25 WBC RBC Hgb Hct MCH MCHC RDW Lymph % (Auto) [place] % (Auto) Eos % (Auto) Lymph # [place] # Eos # Seg Neutrophils % Seg Neuts % (Manual) Lymphocytes % (Manual) Eosinophils % (Manual) Seg Neutrophils # Lymphocytes # (Manual) Eosinophils # (Manual) PT INR D-Dimer POC ABG pH POC ABG pCO2 POC ABG pO2 ABG pO2 ABG HCO3 ABG Base Excess ABG Hemoglobin Oxyhemoglobin Sodium Potassium Chloride Carbon Dioxide BUN Creatinine Glucose POC Glucose 167 H 135 H 136 H Calcium Phosphorus Magnesium ALT Alkaline Phosphatase Total Creatine Kinase CK-MB (CK-2) Rel Index Troponin T Albumin LDL Cholesterol Direct PTH Intact Salicylates Acetaminophen Crossmatch 03/20/19 03/20/19 03/20/19 05:38 08:40 08:40 WBC RBC 2.61 L Hgb 7.1 L Hct 22.0 L MCH 27 L MCHC RDW 19.6 H Lymph % (Auto) 8.2 L [place] % (Auto) 8.3 H Eos % (Auto) 5.7 H Lymph # 0.8 L [place] # Eos # 0.5 H Seg Neutrophils % 77.3 H Seg Neuts % (Manual) Lymphocytes % (Manual) Eosinophils % (Manual) Seg Neutrophils # Lymphocytes # (Manual) Eosinophils # (Manual) PT INR D-Dimer POC ABG pH POC ABG pCO2 POC ABG pO2 ABG pO2 ABG HCO3 ABG Base Excess ABG Hemoglobin Oxyhemoglobin Sodium Potassium Chloride 95.9 L Carbon Dioxide BUN 69 H Creatinine 2.8 H Glucose 115 H POC Glucose 134 H Calcium 10.5 H Phosphorus Magnesium ALT Alkaline Phosphatase Total Creatine Kinase CK-MB (CK-2) Rel Index Troponin T Albumin LDL Cholesterol Direct PTH Intact Salicylates Acetaminophen Crossmatch 03/20/19 03/20/19 03/20/19 12:13 18:04 23:49 WBC RBC Hgb Hct MCH MCHC RDW Lymph % (Auto) [place] % (Auto) Eos % (Auto) Lymph # [place] # Eos # Seg Neutrophils % Seg Neuts % (Manual) Lymphocytes % (Manual) Eosinophils % (Manual) Seg Neutrophils # Lymphocytes # (Manual) Eosinophils # (Manual) PT INR D-Dimer POC ABG pH POC ABG pCO2 POC ABG pO2 ABG pO2 ABG HCO3 ABG Base Excess ABG Hemoglobin Oxyhemoglobin Sodium Potassium Chloride Carbon Dioxide BUN Creatinine Glucose POC Glucose 144 H 165 H 172 H Calcium Phosphorus Magnesium ALT Alkaline Phosphatase Total Creatine Kinase CK-MB (CK-2) Rel Index Troponin T Albumin LDL Cholesterol Direct PTH Intact Salicylates Acetaminophen Crossmatch 03/21/19 03/21/19 03/21/19 05:00 06:29 06:30 WBC RBC 2.72 L Hgb 7.4 L Hct 22.9 L MCH 27 L MCHC RDW 19.4 H Lymph % (Auto) [place] % (Auto) Eos % (Auto) Lymph # [place] # Eos # Seg Neutrophils % Seg Neuts % (Manual) 81.0 H Lymphocytes % (Manual) 8.0 L Eosinophils % (Manual) 8.0 H Seg Neutrophils # Lymphocytes # (Manual) 0.7 L Eosinophils # (Manual) 0.7 H PT INR D-Dimer POC ABG pH POC ABG pCO2 POC ABG pO2 ABG pO2 ABG HCO3 ABG Base Excess ABG Hemoglobin Oxyhemoglobin Sodium Potassium Chloride Carbon Dioxide 33 H BUN 43 H Creatinine 1.7 H Glucose 145 H POC Glucose 156 H Calcium Phosphorus Magnesium ALT Alkaline Phosphatase 212 H Total Creatine Kinase CK-MB (CK-2) Rel Index Troponin T Albumin 2.2 L LDL Cholesterol Direct PTH Intact Salicylates Acetaminophen Crossmatch 03/21/19 03/21/19 03/22/19 12:02 18:07 00:21 WBC RBC Hgb Hct MCH MCHC RDW Lymph % (Auto) [place] % (Auto) Eos % (Auto) Lymph # [place] # Eos # Seg Neutrophils % Seg Neuts % (Manual) Lymphocytes % (Manual) Eosinophils % (Manual) Seg Neutrophils # Lymphocytes # (Manual) Eosinophils # (Manual) PT INR D-Dimer POC ABG pH POC ABG pCO2 POC ABG pO2 ABG pO2 ABG HCO3 ABG Base Excess ABG Hemoglobin Oxyhemoglobin Sodium Potassium Chloride Carbon Dioxide BUN Creatinine Glucose POC Glucose 163 H 144 H 153 H Calcium Phosphorus Magnesium ALT Alkaline Phosphatase Total Creatine Kinase CK-MB (CK-2) Rel Index Troponin T Albumin LDL Cholesterol Direct PTH Intact Salicylates Acetaminophen Crossmatch 03/22/19 03/22/19 03/22/19 05:23 05:23 05:31 WBC RBC 2.58 L Hgb 7.1 L Hct 21.8 L MCH 27 L MCHC RDW 19.2 H Lymph % (Auto) [place] % (Auto) Eos % (Auto) Lymph # [place] # Eos # Seg Neutrophils % Seg Neuts % (Manual) Lymphocytes % (Manual) Eosinophils % (Manual) Seg Neutrophils # Lymphocytes # (Manual) Eosinophils # (Manual) PT INR D-Dimer POC ABG pH POC ABG pCO2 POC ABG pO2 ABG pO2 ABG HCO3 ABG Base Excess ABG Hemoglobin Oxyhemoglobin Sodium 147 H Potassium Chloride Carbon Dioxide BUN 68 H Creatinine 2.5 H Glucose POC Glucose 116 H Calcium 10.3 H Phosphorus Magnesium ALT Alkaline Phosphatase Total Creatine Kinase CK-MB (CK-2) Rel Index Troponin T Albumin LDL Cholesterol Direct PTH Intact Salicylates Acetaminophen Crossmatch 03/22/19 03/22/19 03/22/19 08:48 12:37 17:35 WBC RBC Hgb Hct MCH MCHC RDW Lymph % (Auto) [place] % (Auto) Eos % (Auto) Lymph # [place] # Eos # Seg Neutrophils % Seg Neuts % (Manual) Lymphocytes % (Manual) Eosinophils % (Manual) Seg Neutrophils # Lymphocytes # (Manual) Eosinophils # (Manual) PT INR D-Dimer POC ABG pH POC ABG pCO2 POC ABG pO2 ABG pO2 ABG HCO3 ABG Base Excess ABG Hemoglobin Oxyhemoglobin Sodium Potassium Chloride Carbon Dioxide BUN Creatinine Glucose POC Glucose 143 H 155 H Calcium Phosphorus Magnesium ALT Alkaline Phosphatase Total Creatine Kinase CK-MB (CK-2) Rel Index Troponin T Albumin LDL Cholesterol Direct PTH Intact Salicylates Acetaminophen Crossmatch See Detail 03/23/19 03/23/19 03/23/19 00:07 04:00 04:00 WBC 11.2 H RBC 2.32 L Hgb 6.4 L Hct 19.7 L* MCH MCHC RDW 19.4 H Lymph % (Auto) [place] % (Auto) Eos % (Auto) Lymph # [place] # Eos # Seg Neutrophils % Seg Neuts % (Manual) Lymphocytes % (Manual) Eosinophils % (Manual) Seg Neutrophils # Lymphocytes # (Manual) Eosinophils # (Manual) PT INR D-Dimer POC ABG pH POC ABG pCO2 POC ABG pO2 ABG pO2 ABG HCO3 ABG Base Excess ABG Hemoglobin Oxyhemoglobin Sodium 147 H Potassium 5.2 H Chloride Carbon Dioxide BUN 86 H Creatinine 3.2 H Glucose 128 H POC Glucose 135 H Calcium 10.3 H Phosphorus Magnesium ALT Alkaline Phosphatase Total Creatine Kinase CK-MB (CK-2) Rel Index Troponin T Albumin LDL Cholesterol Direct PTH Intact Salicylates Acetaminophen Crossmatch 03/23/19 03/23/19 03/23/19 05:21 11:36 11:36 WBC RBC Hgb 7.9 L Hct 25.0 L MCH MCHC RDW Lymph % (Auto) [place] % (Auto) Eos % (Auto) Lymph # [place] # Eos # Seg Neutrophils % Seg Neuts % (Manual) Lymphocytes % (Manual) Eosinophils % (Manual) Seg Neutrophils # Lymphocytes # (Manual) Eosinophils # (Manual) PT INR D-Dimer POC ABG pH POC ABG pCO2 POC ABG pO2 ABG pO2 ABG HCO3 ABG Base Excess ABG Hemoglobin Oxyhemoglobin Sodium Potassium Chloride Carbon Dioxide BUN Creatinine Glucose POC Glucose 132 H 147 H Calcium Phosphorus Magnesium ALT Alkaline Phosphatase Total Creatine Kinase CK-MB (CK-2) Rel Index Troponin T Albumin LDL Cholesterol Direct PTH Intact Salicylates Acetaminophen Crossmatch 03/23/19 03/24/19 03/24/19 17:31 01:22 04:20 WBC 12.2 H RBC 3.05 L Hgb 8.3 L Hct 25.9 L MCH 27 L MCHC RDW 18.7 H Lymph % (Auto) [place] % (Auto) Eos % (Auto) Lymph # [place] # Eos # Seg Neutrophils % Seg Neuts % (Manual) Lymphocytes % (Manual) Eosinophils % (Manual) Seg Neutrophils # Lymphocytes # (Manual) Eosinophils # (Manual) PT INR D-Dimer POC ABG pH POC ABG pCO2 POC ABG pO2 ABG pO2 ABG HCO3 ABG Base Excess ABG Hemoglobin Oxyhemoglobin Sodium Potassium Chloride Carbon Dioxide BUN Creatinine Glucose POC Glucose 182 H 113 H Calcium Phosphorus Magnesium ALT Alkaline Phosphatase Total Creatine Kinase CK-MB (CK-2) Rel Index Troponin T Albumin LDL Cholesterol Direct PTH Intact Salicylates Acetaminophen Crossmatch 03/24/19 03/24/19 03/24/19 04:20 11:59 18:14 WBC RBC Hgb Hct MCH MCHC RDW Lymph % (Auto) [place] % (Auto) Eos % (Auto) Lymph # [place] # Eos # Seg Neutrophils % Seg Neuts % (Manual) Lymphocytes % (Manual) Eosinophils % (Manual) Seg Neutrophils # Lymphocytes # (Manual) Eosinophils # (Manual) PT INR D-Dimer POC ABG pH POC ABG pCO2 POC ABG pO2 ABG pO2 ABG HCO3 ABG Base Excess ABG Hemoglobin Oxyhemoglobin Sodium Potassium Chloride 94.8 L Carbon Dioxide 32 H BUN 53 H Creatinine 2.3 H Glucose POC Glucose 163 H 134 H Calcium Phosphorus Magnesium ALT Alkaline Phosphatase Total Creatine Kinase CK-MB (CK-2) Rel Index Troponin T Albumin LDL Cholesterol Direct PTH Intact Salicylates Acetaminophen Crossmatch 03/24/19 03/25/19 03/25/19 23:15 05:52 12:02 WBC RBC Hgb Hct MCH MCHC RDW Lymph % (Auto) [place] % (Auto) Eos % (Auto) Lymph # [place] # Eos # Seg Neutrophils % Seg Neuts % (Manual) Lymphocytes % (Manual) Eosinophils % (Manual) Seg Neutrophils # Lymphocytes # (Manual) Eosinophils # (Manual) PT INR D-Dimer POC ABG pH POC ABG pCO2 POC ABG pO2 ABG pO2 ABG HCO3 ABG Base Excess ABG Hemoglobin Oxyhemoglobin Sodium Potassium Chloride Carbon Dioxide BUN Creatinine Glucose POC Glucose 129 H 123 H 125 H Calcium Phosphorus Magnesium ALT Alkaline Phosphatase Total Creatine Kinase CK-MB (CK-2) Rel Index Troponin T Albumin LDL Cholesterol Direct PTH Intact Salicylates Acetaminophen Crossmatch 03/25/19 03/26/19 03/26/19 17:27 00:30 05:35 WBC RBC 3.01 L Hgb 8.1 L Hct 25.7 L MCH 27 L MCHC RDW 19.2 H Lymph % (Auto) 11.4 L [place] % (Auto) Eos % (Auto) 8.0 H Lymph # 1.0 L [place] # Eos # 0.7 H Seg Neutrophils % 73.9 H Seg Neuts % (Manual) Lymphocytes % (Manual) Eosinophils % (Manual) Seg Neutrophils # Lymphocytes # (Manual) Eosinophils # (Manual) PT INR D-Dimer POC ABG pH POC ABG pCO2 POC ABG pO2 ABG pO2 ABG HCO3 ABG Base Excess ABG Hemoglobin Oxyhemoglobin Sodium Potassium Chloride Carbon Dioxide BUN Creatinine Glucose POC Glucose 130 H 129 H Calcium Phosphorus Magnesium ALT Alkaline Phosphatase Total Creatine Kinase CK-MB (CK-2) Rel Index Troponin T Albumin LDL Cholesterol Direct PTH Intact Salicylates Acetaminophen Crossmatch 03/26/19 03/26/19 03/26/19 05:35 05:45 12:16 WBC RBC Hgb Hct MCH MCHC RDW Lymph % (Auto) [place] % (Auto) Eos % (Auto) Lymph # [place] # Eos # Seg Neutrophils % Seg Neuts % (Manual) Lymphocytes % (Manual) Eosinophils % (Manual) Seg Neutrophils # Lymphocytes # (Manual) Eosinophils # (Manual) PT INR D-Dimer POC ABG pH POC ABG pCO2 POC ABG pO2 ABG pO2 ABG HCO3 ABG Base Excess ABG Hemoglobin Oxyhemoglobin Sodium Potassium Chloride 94.9 L Carbon Dioxide 31 H BUN 44 H Creatinine 2.0 H Glucose POC Glucose 118 H 107 H Calcium Phosphorus Magnesium ALT Alkaline Phosphatase Total Creatine Kinase CK-MB (CK-2) Rel Index Troponin T Albumin LDL Cholesterol Direct PTH Intact Salicylates Acetaminophen Crossmatch 03/26/19 03/27/19 03/27/19 17:56 00:36 05:37 WBC RBC Hgb Hct MCH MCHC RDW Lymph % (Auto) [place] % (Auto) Eos % (Auto) Lymph # [place] # Eos # Seg Neutrophils % Seg Neuts % (Manual) Lymphocytes % (Manual) Eosinophils % (Manual) Seg Neutrophils # Lymphocytes # (Manual) Eosinophils # (Manual) PT INR D-Dimer POC ABG pH POC ABG pCO2 POC ABG pO2 ABG pO2 ABG HCO3 ABG Base Excess ABG Hemoglobin Oxyhemoglobin Sodium Potassium Chloride Carbon Dioxide BUN Creatinine Glucose POC Glucose 107 H 110 H 122 H Calcium Phosphorus Magnesium ALT Alkaline Phosphatase Total Creatine Kinase CK-MB (CK-2) Rel Index Troponin T Albumin LDL Cholesterol Direct PTH Intact Salicylates Acetaminophen Crossmatch 03/27/19 03/27/19 03/28/19 11:22 18:00 05:17 WBC RBC Hgb Hct MCH MCHC RDW Lymph % (Auto) [place] % (Auto) Eos % (Auto) Lymph # [place] # Eos # Seg Neutrophils % Seg Neuts % (Manual) Lymphocytes % (Manual) Eosinophils % (Manual) Seg Neutrophils # Lymphocytes # (Manual) Eosinophils # (Manual) PT INR D-Dimer POC ABG pH POC ABG pCO2 POC ABG pO2 ABG pO2 ABG HCO3 ABG Base Excess ABG Hemoglobin Oxyhemoglobin Sodium Potassium Chloride Carbon Dioxide BUN Creatinine Glucose POC Glucose 120 H 111 H 107 H Calcium Phosphorus Magnesium ALT Alkaline Phosphatase Total Creatine Kinase CK-MB (CK-2) Rel Index Troponin T Albumin LDL Cholesterol Direct PTH Intact Salicylates Acetaminophen Crossmatch 03/28/19 03/28/19 03/29/19 12:27 18:08 05:47 WBC RBC Hgb Hct MCH MCHC RDW Lymph % (Auto) [place] % (Auto) Eos % (Auto) Lymph # [place] # Eos # Seg Neutrophils % Seg Neuts % (Manual) Lymphocytes % (Manual) Eosinophils % (Manual) Seg Neutrophils # Lymphocytes # (Manual) Eosinophils # (Manual) PT INR D-Dimer POC ABG pH POC ABG pCO2 POC ABG pO2 ABG pO2 ABG HCO3 ABG Base Excess ABG Hemoglobin Oxyhemoglobin Sodium Potassium Chloride Carbon Dioxide BUN Creatinine Glucose POC Glucose 114 H 121 H 112 H Calcium Phosphorus Magnesium ALT Alkaline Phosphatase Total Creatine Kinase CK-MB (CK-2) Rel Index Troponin T Albumin LDL Cholesterol Direct PTH Intact Salicylates Acetaminophen Crossmatch 03/29/19 03/29/19 03/30/19 12:14 18:08 00:31 WBC RBC Hgb Hct MCH MCHC RDW Lymph % (Auto) [place] % (Auto) Eos % (Auto) Lymph # [place] # Eos # Seg Neutrophils % Seg Neuts % (Manual) Lymphocytes % (Manual) Eosinophils % (Manual) Seg Neutrophils # Lymphocytes # (Manual) Eosinophils # (Manual) PT INR D-Dimer POC ABG pH POC ABG pCO2 POC ABG pO2 ABG pO2 ABG HCO3 ABG Base Excess ABG Hemoglobin Oxyhemoglobin Sodium Potassium Chloride Carbon Dioxide BUN Creatinine Glucose POC Glucose 117 H 140 H 114 H Calcium Phosphorus Magnesium ALT Alkaline Phosphatase Total Creatine Kinase CK-MB (CK-2) Rel Index Troponin T Albumin LDL Cholesterol Direct PTH Intact Salicylates Acetaminophen Crossmatch 03/30/19 03/30/19 03/30/19 10:13 10:13 23:53 WBC RBC 2.81 L Hgb 7.7 L Hct 24.3 L MCH 27 L MCHC RDW 19.0 H Lymph % (Auto) 12.2 L [place] % (Auto) Eos % (Auto) 7.9 H Lymph # 1.0 L [place] # Eos # 0.6 H Seg Neutrophils % 72.3 H Seg Neuts % (Manual) Lymphocytes % (Manual) Eosinophils % (Manual) Seg Neutrophils # Lymphocytes # (Manual) Eosinophils # (Manual) PT INR D-Dimer POC ABG pH POC ABG pCO2 POC ABG pO2 ABG pO2 ABG HCO3 ABG Base Excess ABG Hemoglobin Oxyhemoglobin Sodium Potassium 5.1 H Chloride 96.5 L Carbon Dioxide BUN 73 H Creatinine 3.9 H D Glucose POC Glucose 114 H Calcium 10.3 H Phosphorus 6.30 H Magnesium 2.70 H ALT Alkaline Phosphatase 185 H Total Creatine Kinase CK-MB (CK-2) Rel Index Troponin T Albumin 2.6 L LDL Cholesterol Direct PTH Intact Salicylates Acetaminophen Crossmatch 03/31/19 03/31/19 03/31/19 05:45 10:26 10:26 WBC RBC 3.01 L Hgb 8.2 L Hct 26.4 L MCH 27 L MCHC 31 L RDW 20.3 H Lymph % (Auto) 13.3 L [place] % (Auto) Eos % (Auto) 7.2 H Lymph # 1.1 L [place] # Eos # 0.6 H Seg Neutrophils % 72.1 H Seg Neuts % (Manual) Lymphocytes % (Manual) Eosinophils % (Manual) Seg Neutrophils # Lymphocytes # (Manual) Eosinophils # (Manual) PT INR D-Dimer POC ABG pH POC ABG pCO2 POC ABG pO2 ABG pO2 ABG HCO3 ABG Base Excess ABG Hemoglobin Oxyhemoglobin Sodium Potassium Chloride 96.9 L Carbon Dioxide 33 H BUN 37 H Creatinine 2.4 H Glucose POC Glucose 108 H Calcium 10.3 H Phosphorus Magnesium ALT Alkaline Phosphatase Total Creatine Kinase CK-MB (CK-2) Rel Index Troponin T Albumin LDL Cholesterol Direct PTH Intact Salicylates Acetaminophen Crossmatch 03/31/19 04/01/19 04/01/19 12:38 05:48 12:06 WBC RBC Hgb Hct MCH MCHC RDW Lymph % (Auto) [place] % (Auto) Eos % (Auto) Lymph # [place] # Eos # Seg Neutrophils % Seg Neuts % (Manual) Lymphocytes % (Manual) Eosinophils % (Manual) Seg Neutrophils # Lymphocytes # (Manual) Eosinophils # (Manual) PT INR D-Dimer POC ABG pH POC ABG pCO2 POC ABG pO2 ABG pO2 ABG HCO3 ABG Base Excess ABG Hemoglobin Oxyhemoglobin Sodium Potassium Chloride Carbon Dioxide BUN Creatinine Glucose POC Glucose 108 H 114 H 111 H Calcium Phosphorus Magnesium ALT Alkaline Phosphatase Total Creatine Kinase CK-MB (CK-2) Rel Index Troponin T Albumin LDL Cholesterol Direct PTH Intact Salicylates Acetaminophen Crossmatch 04/01/19 04/02/19 04/04/19 18:24 00:36 23:55 WBC RBC Hgb Hct MCH MCHC RDW Lymph % (Auto) [place] % (Auto) Eos % (Auto) Lymph # [place] # Eos # Seg Neutrophils % Seg Neuts % (Manual) Lymphocytes % (Manual) Eosinophils % (Manual) Seg Neutrophils # Lymphocytes # (Manual) Eosinophils # (Manual) PT INR D-Dimer POC ABG pH POC ABG pCO2 POC ABG pO2 ABG pO2 ABG HCO3 ABG Base Excess ABG Hemoglobin Oxyhemoglobin Sodium Potassium Chloride Carbon Dioxide BUN Creatinine Glucose POC Glucose 113 H 117 H 109 H Calcium Phosphorus Magnesium ALT Alkaline Phosphatase Total Creatine Kinase CK-MB (CK-2) Rel Index Troponin T Albumin LDL Cholesterol Direct PTH Intact Salicylates Acetaminophen Crossmatch 04/06/19 04/06/19 04/06/19 00:11 06:02 23:30 WBC RBC Hgb Hct MCH MCHC RDW Lymph % (Auto) [place] % (Auto) Eos % (Auto) Lymph # [place] # Eos # Seg Neutrophils % Seg Neuts % (Manual) Lymphocytes % (Manual) Eosinophils % (Manual) Seg Neutrophils # Lymphocytes # (Manual) Eosinophils # (Manual) PT INR D-Dimer POC ABG pH POC ABG pCO2 POC ABG pO2 ABG pO2 ABG HCO3 ABG Base Excess ABG Hemoglobin Oxyhemoglobin Sodium Potassium Chloride Carbon Dioxide BUN Creatinine Glucose POC Glucose 116 H 112 H 112 H Calcium Phosphorus Magnesium ALT Alkaline Phosphatase Total Creatine Kinase CK-MB (CK-2) Rel Index Troponin T Albumin LDL Cholesterol Direct PTH Intact Salicylates Acetaminophen Crossmatch 04/08/19 04/08/19 04/08/19 02:23 06:19 13:01 WBC RBC Hgb Hct MCH MCHC RDW Lymph % (Auto) [place] % (Auto) Eos % (Auto) Lymph # [place] # Eos # Seg Neutrophils % Seg Neuts % (Manual) Lymphocytes % (Manual) Eosinophils % (Manual) Seg Neutrophils # Lymphocytes # (Manual) Eosinophils # (Manual) PT INR D-Dimer POC ABG pH POC ABG pCO2 POC ABG pO2 ABG pO2 ABG HCO3 ABG Base Excess ABG Hemoglobin Oxyhemoglobin Sodium Potassium Chloride Carbon Dioxide BUN Creatinine Glucose POC Glucose 144 H 126 H 118 H Calcium Phosphorus Magnesium ALT Alkaline Phosphatase Total Creatine Kinase CK-MB (CK-2) Rel Index Troponin T Albumin LDL Cholesterol Direct PTH Intact Salicylates Acetaminophen Crossmatch 04/08/19 04/09/19 04/10/19 23:28 05:52 06:34 WBC RBC Hgb Hct MCH MCHC RDW Lymph % (Auto) [place] % (Auto) Eos % (Auto) Lymph # [place] # Eos # Seg Neutrophils % Seg Neuts % (Manual) Lymphocytes % (Manual) Eosinophils % (Manual) Seg Neutrophils # Lymphocytes # (Manual) Eosinophils # (Manual) PT INR D-Dimer POC ABG pH POC ABG pCO2 POC ABG pO2 ABG pO2 ABG HCO3 ABG Base Excess ABG Hemoglobin Oxyhemoglobin Sodium Potassium Chloride Carbon Dioxide BUN Creatinine Glucose POC Glucose 119 H 116 H 114 H Calcium Phosphorus Magnesium ALT Alkaline Phosphatase Total Creatine Kinase CK-MB (CK-2) Rel Index Troponin T Albumin LDL Cholesterol Direct PTH Intact Salicylates Acetaminophen Crossmatch 04/10/19 04/10/19 04/11/19 12:34 18:59 00:36 WBC RBC Hgb Hct MCH MCHC RDW Lymph % (Auto) [place] % (Auto) Eos % (Auto) Lymph # [place] # Eos # Seg Neutrophils % Seg Neuts % (Manual) Lymphocytes % (Manual) Eosinophils % (Manual) Seg Neutrophils # Lymphocytes # (Manual) Eosinophils # (Manual) PT INR D-Dimer POC ABG pH POC ABG pCO2 POC ABG pO2 ABG pO2 ABG HCO3 ABG Base Excess ABG Hemoglobin Oxyhemoglobin Sodium Potassium Chloride Carbon Dioxide BUN Creatinine Glucose POC Glucose 112 H 109 H 124 H Calcium Phosphorus Magnesium ALT Alkaline Phosphatase Total Creatine Kinase CK-MB (CK-2) Rel Index Troponin T Albumin LDL Cholesterol Direct PTH Intact Salicylates Acetaminophen Crossmatch 04/11/19 04/11/19 04/12/19 08:01 17:25 02:18 WBC RBC Hgb Hct MCH MCHC RDW Lymph % (Auto) [place] % (Auto) Eos % (Auto) Lymph # [place] # Eos # Seg Neutrophils % Seg Neuts % (Manual) Lymphocytes % (Manual) Eosinophils % (Manual) Seg Neutrophils # Lymphocytes # (Manual) Eosinophils # (Manual) PT INR D-Dimer POC ABG pH POC ABG pCO2 POC ABG pO2 ABG pO2 ABG HCO3 ABG Base Excess ABG Hemoglobin Oxyhemoglobin Sodium Potassium Chloride Carbon Dioxide BUN Creatinine Glucose POC Glucose 118 H 106 H 125 H Calcium Phosphorus Magnesium ALT Alkaline Phosphatase Total Creatine Kinase CK-MB (CK-2) Rel Index Troponin T Albumin LDL Cholesterol Direct PTH Intact Salicylates Acetaminophen Crossmatch 04/12/19 04/12/19 04/12/19 06:24 12:22 17:13 WBC RBC Hgb Hct MCH MCHC RDW Lymph % (Auto) [place] % (Auto) Eos % (Auto) Lymph # [place] # Eos # Seg Neutrophils % Seg Neuts % (Manual) Lymphocytes % (Manual) Eosinophils % (Manual) Seg Neutrophils # Lymphocytes # (Manual) Eosinophils # (Manual) PT INR D-Dimer POC ABG pH POC ABG pCO2 POC ABG pO2 ABG pO2 ABG HCO3 ABG Base Excess ABG Hemoglobin Oxyhemoglobin Sodium Potassium Chloride Carbon Dioxide BUN Creatinine Glucose POC Glucose 128 H 114 H 110 H Calcium Phosphorus Magnesium ALT Alkaline Phosphatase Total Creatine Kinase CK-MB (CK-2) Rel Index Troponin T Albumin LDL Cholesterol Direct PTH Intact Salicylates Acetaminophen Crossmatch 04/13/19 04/13/19 04/13/19 06:59 07:31 07:31 WBC RBC 3.34 L Hgb 8.9 L Hct 28.6 L MCH 27 L MCHC 31 L RDW 19.6 H Lymph % (Auto) [place] % (Auto) Eos % (Auto) Lymph # [place] # Eos # Seg Neutrophils % Seg Neuts % (Manual) Lymphocytes % (Manual) Eosinophils % (Manual) Seg Neutrophils # Lymphocytes # (Manual) Eosinophils # (Manual) PT INR D-Dimer POC ABG pH POC ABG pCO2 POC ABG pO2 ABG pO2 ABG HCO3 ABG Base Excess ABG Hemoglobin Oxyhemoglobin Sodium Potassium Chloride 96.4 L Carbon Dioxide 33 H BUN 66 H Creatinine 4.5 H Glucose 103 H POC Glucose 107 H Calcium Phosphorus Magnesium ALT Alkaline Phosphatase Total Creatine Kinase CK-MB (CK-2) Rel Index Troponin T Albumin LDL Cholesterol Direct PTH Intact Salicylates Acetaminophen Crossmatch 04/13/19 04/14/19 04/14/19 23:43 05:50 13:07 WBC RBC Hgb Hct MCH MCHC RDW Lymph % (Auto) [place] % (Auto) Eos % (Auto) Lymph # [place] # Eos # Seg Neutrophils % Seg Neuts % (Manual) Lymphocytes % (Manual) Eosinophils % (Manual) Seg Neutrophils # Lymphocytes # (Manual) Eosinophils # (Manual) PT INR D-Dimer POC ABG pH POC ABG pCO2 POC ABG pO2 ABG pO2 ABG HCO3 ABG Base Excess ABG Hemoglobin Oxyhemoglobin Sodium Potassium Chloride Carbon Dioxide BUN Creatinine Glucose POC Glucose 119 H 112 H 112 H Calcium Phosphorus Magnesium ALT Alkaline Phosphatase Total Creatine Kinase CK-MB (CK-2) Rel Index Troponin T Albumin LDL Cholesterol Direct PTH Intact Salicylates Acetaminophen Crossmatch 04/14/19 04/15/19 04/15/19 18:35 01:18 05:17 WBC RBC Hgb Hct MCH MCHC RDW Lymph % (Auto) [place] % (Auto) Eos % (Auto) Lymph # [place] # Eos # Seg Neutrophils % Seg Neuts % (Manual) Lymphocytes % (Manual) Eosinophils % (Manual) Seg Neutrophils # Lymphocytes # (Manual) Eosinophils # (Manual) PT INR D-Dimer POC ABG pH POC ABG pCO2 POC ABG pO2 ABG pO2 ABG HCO3 ABG Base Excess ABG Hemoglobin Oxyhemoglobin Sodium Potassium Chloride Carbon Dioxide BUN Creatinine Glucose POC Glucose 114 H 114 H 114 H Calcium Phosphorus Magnesium ALT Alkaline Phosphatase Total Creatine Kinase CK-MB (CK-2) Rel Index Troponin T Albumin LDL Cholesterol Direct PTH Intact Salicylates Acetaminophen Crossmatch 04/15/19 04/15/19 04/16/19 11:50 23:39 05:41 WBC RBC Hgb Hct MCH MCHC RDW Lymph % (Auto) [place] % (Auto) Eos % (Auto) Lymph # [place] # Eos # Seg Neutrophils % Seg Neuts % (Manual) Lymphocytes % (Manual) Eosinophils % (Manual) Seg Neutrophils # Lymphocytes # (Manual) Eosinophils # (Manual) PT INR D-Dimer POC ABG pH POC ABG pCO2 POC ABG pO2 ABG pO2 ABG HCO3 ABG Base Excess ABG Hemoglobin Oxyhemoglobin Sodium Potassium Chloride Carbon Dioxide BUN Creatinine Glucose POC Glucose 109 H 115 H 125 H Calcium Phosphorus Magnesium ALT Alkaline Phosphatase Total Creatine Kinase CK-MB (CK-2) Rel Index Troponin T Albumin LDL Cholesterol Direct PTH Intact Salicylates Acetaminophen Crossmatch 04/16/19 04/17/19 04/17/19 12:53 01:00 12:38 WBC RBC Hgb Hct MCH MCHC RDW Lymph % (Auto) [place] % (Auto) Eos % (Auto) Lymph # [place] # Eos # Seg Neutrophils % Seg Neuts % (Manual) Lymphocytes % (Manual) Eosinophils % (Manual) Seg Neutrophils # Lymphocytes # (Manual) Eosinophils # (Manual) PT INR D-Dimer POC ABG pH POC ABG pCO2 POC ABG pO2 ABG pO2 ABG HCO3 ABG Base Excess ABG Hemoglobin Oxyhemoglobin Sodium Potassium Chloride Carbon Dioxide BUN Creatinine Glucose POC Glucose 121 H 127 H 159 H Calcium Phosphorus Magnesium ALT Alkaline Phosphatase Total Creatine Kinase CK-MB (CK-2) Rel Index Troponin T Albumin LDL Cholesterol Direct PTH Intact Salicylates Acetaminophen Crossmatch 04/17/19 04/17/19 04/18/19 18:27 23:36 07:19 WBC RBC 3.49 L Hgb 9.0 L Hct 29.9 L MCH 26 L MCHC 30 L RDW 20.0 H Lymph % (Auto) [place] % (Auto) Eos % (Auto) Lymph # [place] # Eos # Seg Neutrophils % Seg Neuts % (Manual) Lymphocytes % (Manual) Eosinophils % (Manual) Seg Neutrophils # Lymphocytes # (Manual) Eosinophils # (Manual) PT INR D-Dimer POC ABG pH POC ABG pCO2 POC ABG pO2 ABG pO2 ABG HCO3 ABG Base Excess ABG Hemoglobin Oxyhemoglobin Sodium Potassium Chloride Carbon Dioxide BUN Creatinine Glucose POC Glucose 109 H 134 H Calcium Phosphorus Magnesium ALT Alkaline Phosphatase Total Creatine Kinase CK-MB (CK-2) Rel Index Troponin T Albumin LDL Cholesterol Direct PTH Intact Salicylates Acetaminophen Crossmatch 04/18/19 04/18/19 07:19 12:16 WBC RBC Hgb Hct MCH MCHC RDW Lymph % (Auto) [place] % (Auto) Eos % (Auto) Lymph # [place] # Eos # Seg Neutrophils % Seg Neuts % (Manual) Lymphocytes % (Manual) Eosinophils % (Manual) Seg Neutrophils # Lymphocytes # (Manual) Eosinophils # (Manual) PT INR D-Dimer POC ABG pH POC ABG pCO2 POC ABG pO2 ABG pO2 ABG HCO3 ABG Base Excess ABG Hemoglobin Oxyhemoglobin Sodium Potassium Chloride Carbon Dioxide BUN 41 H Creatinine 2.9 H Glucose 122 H POC Glucose 125 H Calcium Phosphorus Magnesium ALT Alkaline Phosphatase Total Creatine Kinase CK-MB (CK-2) Rel Index Troponin T Albumin LDL Cholesterol Direct PTH Intact Salicylates Acetaminophen Crossmatch
[2019-04-19] MEDS: SODIUM HYPOCHLORITE, DAKIN'S 1/2 STRENGTH (0.25%) 473 ML TOPICAL SOLN TP SCH ×3 (06:08→23:00)
[2019-04-19] MEDS: INSULIN REGULAR, HUMAN 100 UNITS/1 ML SUB-Q SCH ×5 (06:10→17:19)
[2019-04-19] MEDS: IPRATROPIUM/ALBUTEROL SULFATE 3 ML AMPUL.NEB IH SCH ×3 (08:26→20:30)
--- NOTE | 2019-04-19 09:54 | Progress Note ---
Assessment and Plan Assessment and plan: Day 52, which is my first day caring for patient on this admission. Patient is a 63-year-old -[place] man from [facility] with a plethora of co-morbidities including blindness, CVA, CHF, PPM/ICD, loop recorder since 2012 that is MRI compatible, IDDM type 2, sepsis left foot ulcer, afib, ESRD with complications on HD TTS, hypertension, AOCD and GERD who presented to the ED with hypotensive after intubation in the emergency room. Still intubated, diagnosed with fluid overload, pleural effusion. Patient has had recurrent admission in the hospital for similar reason and was recently discharged from the hospital following treatment of Severe Sepsis due to Necrotizing Unstagable sacral decubitus ulcer with ostemomylitis, expected to complete abx on discharge till 02/16/19. Trach and peg done and LTAC transfer with anticipated longer weaning process and wound care management. HR control improved with change in BB. Acute respiratory failure on mechanical ventilator >96 hrs - Currently on trach placed on 03/03 Pulm consult appreciated weaning trial VAP BUNDLE ASPIRATION BUNDLE Continue T-piece Finished therapy for Acinetobacter Acute pulmonary edema, fluid overload on CXR repeat xray intermittently Dialysis Necrotizing Unstagable sacral decubitus ulcer with ostemomyelitis Wound care, Dilated CMP Cardiomyiopathy EF 35-40% Continue diuresis PPM/ICD Acute encephalopathy, probably metabolic or toxic Continues on Mechanical ventilator. ESRD on hemodialysis nephrology following Vascular eval. done re: LUE AV graft, see note Bilateral pleural effusions Anticipate improvement with Permanent atrial fibrillation and flutter Not on anticoagulation because of anemia thrombocytopenia Change noted to BB agent to IV. 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 -Pt is s/p x1 DDVAP RUL atelectasis, nebs as needed DVT prophylaxis Lovenox DNR poor prognosis Awaiting on placement History Interval history: Patient was seen and examined. Follow-up on current diagnosis. No overnight events reported to me. Patient is mainly nonverbal. Imaging, nursing note, chart, labs and old chart reviewed. Hospitalist Physical - Physical exam Narrative exam: Gen: severely disable, nad, awake alert x 1 HEENT: NCAT, EOMI, PERRL, OP Clear Neck: supple, trach CVS/Heart: irreg irregular, normal S1S2, pulses present bilaterally Chest/Lungs: diminished bs ymmetrical chest expansion, good air entry bilaterally GI/Abdomen:peg, colostomy present, good bowel sounds, no guarding or rebound /Bladder: no suprapubic tenderness, no CVA or paraspinal tenderness Extermity/Skin: no c/c/e, no obvious rash MSK: no FROM x 4 Neuro: CN 2-12 grossly intact except vision, no new focal deficits Psych: calm - Constitutional Vitals: Temp Pulse Resp BP Pulse Ox 98.4 F 109 H 22 105/50 99 04/18/19 23:46 04/18/19 23:46 04/19/19 07:41 04/18/19 23:46 04/19/19 03:51 General appearance: Present: no acute distress, well-nourished Results - Labs CBC & Chem 7: 04/18/19 07:19 04/18/19 07:19 Labs: Laboratory Last Values WBC 9.6 K/mm3 (4.5-11.0) 04/18/19 07:19 RBC 3.49 M/mm3 (3.65-5.03) L 04/18/19 07:19 Hgb 9.0 gm/dl (11.8-15.2) L 04/18/19 07:19 Hct 29.9 % (35.5-45.6) L 04/18/19 07:19 MCV 86 fl (84-94) 04/18/19 07:19 MCH 26 pg (28-32) L 04/18/19 07:19 MCHC 30 % (32-34) L 04/18/19 07:19 RDW 20.0 % (13.2-15.2) H 04/18/19 07:19 Plt Count 286 K/mm3 (140-440) 04/18/19 07:19 Lymph % (Auto) 13.3 % (13.4-35.0) L 03/31/19 10:26 [place] % (Auto) 6.5 % (0.0-7.3) 03/31/19 10: Eos % (Auto) 7.2 % (0.0-4.3) H 03/31/19 10: Baso % (Auto) 0.9 % (0.0-1.8) 03/31/19 10: Lymph # 1.1 K/mm3 (1.2-5.4) L 03/31/19 10: [place] # 0.5 K/mm3 (0.0-0.8) 03/31/19 10: Eos # 0.6 K/mm3 (0.0-0.4) H 03/31/19 10: Baso # 0.1 K/mm3 (0.0-0.1) 03/31/19 10:26 Add Manual Diff Complete 03/21/19 06:30 Total Counted 100 03/21/19 06:30 Seg Neutrophils % 72.1 % (40.0-70.0) H 03/31/19 10: Seg Neuts % (Manual) 81.0 % (40.0-70.0) H 03/21/19 06:30 0 % 03/21/19 06:30 8.0 % (13.4-35.0) L 03/21/19 06:30 Reactive Lymphs % (Man) 0 % 03/21/19 06:30 1.0 % (0.0-7.3) 03/21/19 06:30 8.0 % (0.0-4.3) H 03/21/19 06:30 1.0 % (0.0-1.8) 03/21/19 06:30 1.0 % 03/21/19 06:30 0 % 03/21/19 06:30 0 % 03/21/19 06:30 0 % 03/21/19 06:30 Nucleated RBC % Not Reportable 03/21/19 06:30 Seg Neutrophils # 6.0 K/mm3 (1.8-7.7) 03/31/19 10: Seg Neutrophils # Man 6.7 K/mm3 (1.8-7.7) 03/21/19 06:30 Band Neutrophils # 0.0 K/mm3 03/21/19 06:30 0.7 K/mm3 (1.2-5.4) L 03/21/19 06:30 Abs React Lymphs (Man) 0.0 K/mm3 03/21/19 06:30 0.1 K/mm3 (0.0-0.8) 03/21/19 06:30 0.7 K/mm3 (0.0-0.4) H 03/21/19 06:30 0.1 K/mm3 (0.0-0.1) 03/21/19 06:30 0.1 K/mm3 03/21/19 06:30 0.0 K/mm3 03/21/19 06:30 0.0 K/mm3 03/21/19 06:30 Blast Cells # 0.0 K/mm3 03/21/19 06:30 WBC Morphology Not Reportable 03/21/19 06:30 Hypersegmented Neuts Not Reportable 03/21/19 06:30 Hyposegmented Neuts Not Reportable 03/21/19 06:30 Hypogranular Neuts Not Reportable 03/21/19 06:30 Not Reportable 03/21/19 06:30 Not Reportable 03/21/19 06:30 Not Reportable 03/21/19 06:30 Not Reportable 03/21/19 06:30 Not Reportable 03/21/19 06:30 Not Reportable 03/21/19 06:30 Consistent w auto 03/21/19 06:30 Not Reportable 03/21/19 06:30 Plt Clumps, EDTA Not Reportable 03/21/19 06:30 Not Reportable 03/21/19 06:30 Not Reportable 03/21/19 06:30 Not Reportable 03/21/19 06:30 Plt Morphology Comment Not Reportable 03/21/19 06:30 RBC Morphology Not Reportable 03/21/19 06:30 Dimorphic RBCs Not Reportable 03/21/19 06:30 Not Reportable 03/21/19 06:30 Few 03/21/19 06:30 Few 03/21/19 06:30 Few 03/21/19 06:30 Not Reportable 03/21/19 06:30 Not Reportable 03/21/19 06:30 Not Reportable 03/21/19 06:30 Not Reportable 03/21/19 06:30 Not Reportable 03/21/19 06:30 1+ 03/21/19 06:30 Not Reportable 03/21/19 06:30 Few 03/21/19 06:30 Not Reportable 03/21/19 06:30 Not Reportable 03/21/19 06:30 Not Reportable 03/21/19 06:30 Not Reportable 03/21/19 06:30 Not Reportable 03/21/19 06:30 Not Reportable 03/21/19 06:30 Not Reportable 03/21/19 06:30 Acanthocytes (Spur) Not Reportable 03/21/19 06:30 Rouleaux Not Reportable 03/21/19 06:30 Not Reportable 03/21/19 06:30 Not Reportable 03/21/19 06:30 Not Reportable 03/21/19 06:30 Not Reportable 03/21/19 06:30 Hem Pathologist Commnt No 03/21/19 06:30 PT 16.3 Sec. (12.2-14.9) H 03/01/19 09:39 INR 1.35 (0.87-1.13) H 03/01/19 09:39 APTT 33.7 Sec. (24.2-36.6) 02/21/19 18:30 2987.82 ng/mlDDU (0-234) H 02/22/19 05:54 POC ABG pH 7.510 (7.35-7.45) H 03/18/19 06:38 ABG pH 7.424 pH Units (7.350-7.450) 03/19/19 04:23 POC ABG pCO2 38.9 (35-45) 03/18/19 06:38 ABG pCO2 48.0 mm Hg 03/19/19 04:23 POC ABG pO2 164 (80-105) H 03/18/19 06:38 ABG pO2 78.3 mm Hg (80.0-90.0) L 03/19/19 04:23 POC ABG HCO3 31.0 (22-26 mml/L) 03/18/19 06:38 ABG HCO3 30.7 mmol/L (20.0-26.0) H 03/19/19 04:23 POC ABG Total CO2 32 (23-27mmol/L) 03/18/19 06:38 POC ABG O2 Sat 100 03/18/19 06:38 ABG O2 Saturation 97.0 % (95.0-99.0) 03/19/19 04:23 ABG O2 Content 7.9 (0.0-44) 03/19/19 04:23 POC ABG Base Excess 8 ((-2) - (+3)mmol/L) 03/18/19 06:38 ABG Base Excess 5.8 mmol/L (-2.0-3.0) H 03/19/19 04:23 ABG Hemoglobin 5.8 gm/dl (14.0-18.0) L 03/19/19 04:23 ABG Carboxyhemoglobin 2.0 % (0.0-5.0) 03/19/19 04:23 ABG Methemoglobin 0.4 % (0.0-1.5) 03/19/19 04:23 94.6 % (95.0-99.0) L 03/19/19 04:23 35 % 03/19/19 04:23 Sodium 145 mmol/L (137-145) 04/18/19 07:19 Potassium 3.6 mmol/L (3.6-5.0) 04/18/19 07:19 Chloride 99.1 mmol/L (98-107) 04/18/19 07:19 Carbon Dioxide 30 mmol/L (22-30) 04/18/19 07:19 20 mmol/L 04/18/19 07:19 BUN 41 mg/dL (9-20) H 04/18/19 07:19 2.9 mg/dL (0.8-1.5) H 04/18/19 07:19 Estimated GFR 27 ml/min 04/18/19 07:19 14 % 04/18/19 07:19 Glucose 122 mg/dL (75-100) H 04/18/19 07:19 POC Glucose 144 (70-105) H 04/19/19 05:55 Lactic Acid 1.00 mmol/L (0.7-2.0) 02/21/19 20:58 Calcium 10.1 mg/dL (8.4-10.2) 04/18/19 07:19 Phosphorus 4.30 mg/dL (2.5-4.5) D 03/31/19 10:26 Magnesium 2.70 mg/dL (1.7-2.3) H 03/30/19 10:13 0.20 mg/dL (0.1-1.2) 03/30/19 10:13 AST 16 units/L (5-40) 03/30/19 10:13 ALT 11 units/L (7-56) 03/30/19 10:13 185 units/L (35-129) H 03/30/19 10:13 28.0 umol/L (25-60) 02/21/19 20:04 64 units/L (55-170) 02/22/19 03:42 CK-MB (CK-2) 3.7 ng/mL (0.0-4.0) 02/22/19 03:42 CK-MB (CK-2) Rel Index 5.7 (0-4) H 02/22/19 03:42 0.193 ng/mL (0.00-0.029) H* 02/22/19 03:42 6.9 g/dL (6.3-8.2) 03/30/19 10:13 2.6 g/dL (3.9-5) L 03/30/19 10:13 0.6 % 03/30/19 10:13 Triglycerides 51 mg/dL (2-149) 02/21/19 18:30 Cholesterol 82 mg/dL (50-199) 02/21/19 18:30 36 mg/dL (50-130) L 02/21/19 18:30 40 mg/dL (40-59) 02/21/19 18:30 2.05 % 02/21/19 18:30 TSH 2.760 mlU/mL (0.270-4.200) 02/21/19 20:04 PTH Intact 267.6 pg/mL (15-65) H 03/02/19 05:15 Salicylates < 0.3 mg/dL (2.8-20.0) L 02/21/19 20:04 Acetaminophen < 5.0 ug/mL (10.0-30.0) L 02/21/19 20:04 Hepatitis A IgM Ab Non-reactive (NonReactive) 03/31/19 22:56 Hep Bs Antigen Non-reactive (Negative) 03/31/19 22:56 Hep B Core IgM Ab Non-reactive (NonReactive) 03/31/19 22:56 Non-reactive (NonReactive) 03/31/19 22:56 Blood Type O POSITIVE 03/22/19 08:48 Antibody Screen Negative 03/22/19 08:48 Crossmatch See Detail 03/22/19 08:48 Active Medications - Current Medications Current Medications: Generic Name Dose Route Start Last Admin Trade Name Freq PRN Reason Stop Dose Admin Albuterol/Ipratropium 1 ampul 02/24/19 20:00 04/19/19 08:26 Duoneb *Not For Prn Use* IH 1 ampul TIDRT SANCHEZ Administration Lipase/Protease/Amylase 1 each 04/10/19 15:16 Pancreaze 10,500 Unit FEEDTUBE PRN PRN For Clogged Feeding Tube Epoetin Solitario 20,000 unit 03/24/19 11:17 04/15/19 15:59 Procrit IV 20,000 unit UMA PRN Administration hemodialysis Famotidine 20 mg 02/23/19 10:00 04/18/19 09:42 Pepcid PO 20 mg DAILY SANCHEZ Administration Hydrophilic Ointment 1 applic 02/21/19 18:24 03/05/19 08:16 Vaseline Lip Therapy TP 1 applic Q2HR PRN Administration Dry Lips Sodium Chloride 100 mls @ 999 mls/hr 02/26/19 09:00 Nacl 0.9% IV UMA PRN Hypotension Insulin Human Regular 0 units 02/26/19 12:00 04/19/19 06:15 Humulin R SUB-Q 1 units Q6HR SANCHEZ Administration Protocol Metoprolol Tartrate 2.5 mg 02/28/19 12:06 03/15/19 05:15 Lopressor IV 2.5 mg Q4HR PRN Administration Tachycardia Multi-Ingred Cream/Lotion/Oil/Oint 1 applic 02/21/19 18:24 04/16/19 14:31 Artificial Tears Ophth Oint OU 1 applic Q4HR PRN Administration Dry Eye(s) Risperidone 1 mg 02/25/19 13:00 04/18/19 09:42 Risperdal PO 1 mg DAILY SANCHEZ Administration Sertraline HCl 100 mg 02/25/19 13:00 04/18/19 09:42 Zoloft PO 100 mg DAILY SANCHEZ Administration Simple Syrup 15 ml 04/10/19 15:16 Simple Syrup FEEDTUBE PRN PRN Hypoglycemia Simple Syrup 30 ml 04/10/19 15:16 Simple Syrup FEEDTUBE PRN PRN Hypoglycemia Sodium Bicarbonate 325 mg 04/10/19 15:16 Sodium Bicarbonate FEEDTUBE PRN PRN For Clogged Feeding Tube Sodium Hypochlorite 1 applic 04/01/19 13:00 04/19/19 06:08 Dakin's Half Strength TP 1 applicatio BID SANCHEZ Administration Nutrition/Malnutrition Assess - Dietary Evaluation Nutrition/Malnutrition Findings: Nutrition Notes Start: 02/22/19 12:51 Freq: Status: Active Protocol: Document 04/17/19 09:45 KS (Rec: 04/17/19 11:00 KS [id number]) Co-Sign 04/17/19 09:45 LM Nutrition Notes Initial or Follow up Reassessment Current Diagnosis Diabetes,Hypertension Other Pertinent Diagnosis Sacral PU, ESRD on HD (T/Thurs /Sat), Schizophrenia,Blind in L eye,S/P trach Current Diet Nepro at 50 ml/hr w/Abhilash BID Labs/Tests POC Glu - 127 Pertinent Medications Reviewed Height 5 ft 10 in Weight 78.2 kg Soso Body Weight (kg) 75.45 BMI 24.7 Subjective/Other Information Observed Nepro infusing at 50 ml/hr. RN states Abhilash not being given to pt. RN informed of reason for Abhilash. Percent of energy/protein needs met: 92%/100% Burn Absent Trauma Absent Minimum of two criteria No #2 Nutrition Diagnosis Increased nutrient needs ( specify in comment below) Diagnosis Progress(for reassessment Continues documentation) #1 Nutrition Diagnosis Inadequate oral intake Diagnosis Progress(for reassessment Continues documentation) Is patient on ventilator? No Is Patient Ambulatory and/or Out of Bed No REE-([facility]-confined to bed) 1898.108 Kcal/Kg value to use for calculation 30 Approximate Energy Requirements Using 2346 kcal/Kg Calculation Used for Recommendations Kcal/kg Additional Notes Protein Needs: 90-112g (1.2-1. 5g/kg) Fluid Needs: 1-1.5 L/day Nutrition Intervention Change Diet Order: Continue TF Nutrition Support: Nepro with Carbsteady 1.8 at 50 ml/hr Flush 200 ml q4hr Kcal 2,160 Protein (gm) 97 Fluid (mL) 872 Add Supplement/Snack (indicate name/kcal Abhilash BID /protein ) Provides kCal: 190 Provides Protein (gm) 5 Goal #1 TF tolerance Goal #2 Continue to meet at least 75% of calorie and protein needs via TF Anticipated Discharge Needs: TF Follow-Up By: 04/24/19 Additional Comments Follow for TF tolerance, Pt receiving Abhilash
[2019-04-19] MEDS: FAMOTIDINE 20 MG TAB PO SCH (10:33)
[2019-04-19] MEDS: SERTRALINE 100 MG TAB PO SCH (10:33)
[2019-04-19] MEDS: risperiDONE 1 MG TAB PO SCH (10:33)
--- NOTE | 2019-04-19 11:57 | Progress Note ---
Assessment and Plan Impression * End-stage renal disease on maintenance hemodialysis * Respiratory failure secondary to pneumonia +/- fluid overload. Status post trach * Hypokalemia * Sepsis * Schizophrenia * Chronic atrial fibrillation * Dementia * Sacral decubitus * Pleural effusion Recommendations * Continue dialysis on MWF schedule for now * Adjust diet and meds for ESRD state * His AV graft in his left upper arm seems to be functioning well for dialysis * No IV, BP of any puncture in his left upper arm * Procrit with dialysis * Avoid nephrotoxins * Monitor fluid status and electrolytes closely Subjective Date of service: 04/19/19 Principal diagnosis: Respiratory failure, acute on chronic systolic HF, ESRD Interval history: Patient is awake but nonverbal. Appears comfortable. Objective - Vital Signs Vital signs: Vital Signs - 12hr 04/19/19 04/19/19 04/19/19 03:46 03:51 07:41 Temperature 98.3 F Pulse Rate 130 H Pulse Rate [ Anterior Bilateral Throughout] Respiratory 18 22 Rate Respiratory Rate [Anterior Bilateral Throughout] Blood Pressure 123/56 O2 Sat by Pulse 98 99 Oximetry O2 Sat by Pulse Oximetry [ Assessment] 04/19/19 04/19/19 04/19/19 08:24 08:26 10:46 Temperature 98.2 F Pulse Rate 107 H Pulse Rate [ 109 H Anterior Bilateral Throughout] Respiratory 19 Rate Respiratory 20 Rate [Anterior Bilateral Throughout] Blood Pressure 96/58 O2 Sat by Pulse 85 100 Oximetry O2 Sat by Pulse 100 Oximetry [ Assessment] - General Appearance General appearance: well-developed, well-nourished, appears stated age EENT: PERRL, mucous membranes moist Neck: other (tracheostomy tube in place. Connected to T piece) Respiratory: Present: Clear to Ascultation Cardiology: irregular, normal heart rate, S1S2, no murmurs Gastrointestinal: other (PEG tube and colostomy bag in place) Integumentary: other (AV graft in his left upper arm. Good bruit and thrill.) - Lab 04/18/19 07:19 04/18/19 07:19 Most recent lab results ABG pH 7.424 pH Units (7.350-7.450) 03/19/19 04:23 ABG pCO2 48.0 mm Hg 03/19/19 04:23 ABG pO2 78.3 mm Hg (80.0-90.0) L 03/19/19 04:23 ABG HCO3 30.7 mmol/L (20.0-26.0) H 03/19/19 04:23 ABG O2 Saturation 97.0 % (95.0-99.0) 03/19/19 04:23 Calcium 10.1 mg/dL (8.4-10.2) 04/18/19 07:19 Phosphorus 4.30 mg/dL (2.5-4.5) D 03/31/19 10:26 Magnesium 2.70 mg/dL (1.7-2.3) H 03/30/19 10:13 Medications & Allergies - Medications Allergies/Adverse Reactions: Allergies haloperidol [From Haldol] Adverse Reaction (Verified 03/13/18 12:10) Unknown haloperidol lactate [From Haldol] Adverse Reaction (Verified 03/13/18 12:10) Unknown Home Medications: Home Medications Medication Instructions Recorded Confirmed Last Taken Type risperiDONE [RisperDAL] 1 mg PO QAM 03/13/18 02/21/19 Unknown History Sertraline [Zoloft] 100 mg PO QDAY 08/26/18 02/21/19 Unknown History Polyethylene Glycol 3350 [Miralax 17 gm PO QDAY #30 packet 11/05/18 02/21/19 Unknown Rx 3350] Aspirin EC [Halfprin EC] 81 mg PO DAILY #30 11/19/18 02/21/19 Unknown Rx Docusate Sodium [Colace CAP] 100 mg PO BID #60 11/19/18 02/21/19 Unknown Rx Folic Acid [Folvite] 1 mg PO DAILY #30 tab 11/19/18 02/21/19 Unknown Rx Famotidine [Pepcid] 20 mg PO DAILY tablet 12/08/18 02/21/19 Unknown Rx Gabapentin [Neurontin] 100 mg PO QHS capsule 12/08/18 02/21/19 Unknown Rx Metoprolol [Lopressor TAB] 50 mg PO BID 30 Days tablet 12/08/18 02/21/19 Unknown Rx Sevelamer Carbonate [Renvela] 800 mg PO TIDWM tablet 12/08/18 02/21/19 Unknown Rx hydrALAZINE [Apresoline TAB] 100 mg PO Q8HR #120 tablet 12/08/18 02/21/19 Unknown Rx Acetaminophen [Acetaminophen TAB] 650 mg PO Q12H PRN 12/15/18 02/21/19 Unknown History Glucagon,Human Recombinant 1 mg IJ Q15MIN PRN 12/15/18 02/21/19 Unknown History [Glucagon Emergency Kit] Insulin Aspart [NovoLOG 100 See Protocol SQ QWEEK 12/15/18 02/21/19 Unknown History UNITS/ML VIAL] Active Medications: Generic Name Dose Route Start Last Admin Trade Name Freq PRN Reason Stop Dose Admin Albuterol/Ipratropium 1 ampul 02/24/19 20:00 04/19/19 08:26 Duoneb *Not For Prn Use* IH 1 ampul TIDRT SANCHEZ Administration Lipase/Protease/Amylase 1 each 04/10/19 15:16 Pancreaze 10,500 Unit FEEDTUBE PRN PRN For Clogged Feeding Tube Epoetin Solitario 20,000 unit 03/24/19 11:17 04/15/19 15:59 Procrit IV 20,000 unit UMA PRN Administration hemodialysis Famotidine 20 mg 02/23/19 10:00 04/19/19 10:33 Pepcid PO 20 mg DAILY SANCHEZ Administration Hydrophilic Ointment 1 applic 02/21/19 18:24 03/05/19 08:16 Vaseline Lip Therapy TP 1 applic Q2HR PRN Administration Dry Lips Sodium Chloride 100 mls @ 999 mls/hr 02/26/19 09:00 Nacl 0.9% IV UMA PRN Hypotension Insulin Human Regular 0 units 02/26/19 12:00 04/19/19 06:15 Humulin R SUB-Q 1 units Q6HR SANCHEZ Administration Protocol Metoprolol Tartrate 2.5 mg 02/28/19 12:06 03/15/19 05:15 Lopressor IV 2.5 mg Q4HR PRN Administration Tachycardia Multi-Ingred Cream/Lotion/Oil/Oint 1 applic 02/21/19 18:24 04/16/19 14:31 Artificial Tears Ophth Oint OU 1 applic Q4HR PRN Administration Dry Eye(s) Risperidone 1 mg 02/25/19 13:00 04/19/19 10:33 Risperdal PO 1 mg DAILY SANCHEZ Administration Sertraline HCl 100 mg 02/25/19 13:00 04/19/19 10:33 Zoloft PO 100 mg DAILY SANCHEZ Administration Simple Syrup 15 ml 04/10/19 15:16 Simple Syrup FEEDTUBE PRN PRN Hypoglycemia Simple Syrup 30 ml 04/10/19 15:16 Simple Syrup FEEDTUBE PRN PRN Hypoglycemia Sodium Bicarbonate 325 mg 04/10/19 15:16 Sodium Bicarbonate FEEDTUBE PRN PRN For Clogged Feeding Tube Sodium Hypochlorite 1 applic 04/01/19 13:00 04/19/19 10:32 Dakin's Half Strength TP 1 applicatio BID SANCHEZ Administration
--- NOTE | 2019-04-19 13:05 | Progress Note ---
Assessment and Plan 63 y/o male with multiple medical issues admitted with altered mental status, acute respiratory failure requiring mechanical ventilation No new recs, please see below. Nursing will check colostomy bag to make sure not leaking. 1. Tolerating T-piece will continue. 2. Will ask RT about weaning the amount of flow 3. Consider speech consult for PMV trials. Patient had Peg tube long before trach but maybe, if he can tolerate PMV, maybe able to tolerate being capped. Currently has a number 8 cuffed trach. If Speech needs smaller cannula can ask RT to change out. 4. CM working on placement Subjective Date of service: 04/19/19 Principal diagnosis: Respiratory failure, acute on chronic systolic HF, ESRD Interval history: No acute events. No family at bedside. Per nurse just changed dressing on wounds but patient has a foul odor. Objective Vital Signs - 12hr 04/19/19 04/19/19 04/19/19 03:46 03:51 07:41 Temperature 98.3 F Pulse Rate 130 H Pulse Rate [ Anterior Bilateral Throughout] Respiratory 18 22 Rate Respiratory Rate [Anterior Bilateral Throughout] Blood Pressure 123/56 O2 Sat by Pulse 98 99 Oximetry O2 Sat by Pulse Oximetry [ Assessment] 04/19/19 04/19/19 04/19/19 08:24 08:26 10:46 Temperature 98.2 F Pulse Rate 107 H Pulse Rate [ 109 H Anterior Bilateral Throughout] Respiratory 19 Rate Respiratory 20 Rate [Anterior Bilateral Throughout] Blood Pressure 96/58 O2 Sat by Pulse 85 100 Oximetry O2 Sat by Pulse 100 Oximetry [ Assessment] Constitutional: no acute distress, alert Eyes: non-icteric ENT: oropharynx moist Neck: supple Effort: normal Ascultation: Bilateral: diminished breath sounds, other (coarse BS bilaterally) Percussion: Bilateral: not dull Cardiovascular: other (tachy, RR; no mrg) Gastrointestinal: normoactive bowel sounds, soft, non-tender, non-distended, other (ostomy in place, brown stool) Extremities: no cyanosis, no edema, pink and warm Neurologic: other (mild weakness LUE, o/w nonfocal) Psychiatric: other (unable to assess) CBC and BMP: 04/18/19 07:19 04/18/19 07:19 ABG, PT/INR, D-dimer: ABG POC ABG pH 7.510 (7.35-7.45) H 03/18/19 06:38 ABG pH 7.424 pH Units (7.350-7.450) 03/19/19 04:23 POC ABG pCO2 38.9 (35-45) 03/18/19 06:38 ABG pCO2 48.0 mm Hg 03/19/19 04:23 POC ABG pO2 164 (80-105) H 03/18/19 06:38 ABG pO2 78.3 mm Hg (80.0-90.0) L 03/19/19 04:23 POC ABG HCO3 31.0 (22-26 mml/L) 03/18/19 06:38 POC ABG Total CO2 32 (23-27mmol/L) 03/18/19 06:38 POC ABG O2 Sat 100 03/18/19 06:38 ABG O2 Saturation 97.0 % (95.0-99.0) 03/19/19 04:23 PT/INR, D-dimer PT 16.3 Sec. (12.2-14.9) H 03/01/19 09:39 INR 1.35 (0.87-1.13) H 03/01/19 09:39 2987.82 ng/mlDDU (0-234) H 02/22/19 05:54 Abnormal lab findings: Abnormal Labs 02/21/19 02/21/19 02/21/19 18:30 18:30 18:30 WBC RBC 3.26 L Hgb 8.8 L Hct 29.0 L MCH 27 L MCHC 30 L RDW 19.1 H Lymph % (Auto) 6.1 L [place] % (Auto) Eos % (Auto) Lymph # 0.4 L [place] # Eos # Seg Neutrophils % 86.2 H Seg Neuts % (Manual) Lymphocytes % (Manual) Eosinophils % (Manual) Seg Neutrophils # Lymphocytes # (Manual) Eosinophils # (Manual) PT INR D-Dimer POC ABG pH POC ABG pCO2 POC ABG pO2 ABG pO2 ABG HCO3 ABG Base Excess ABG Hemoglobin Oxyhemoglobin Sodium 133 L Potassium 3.3 L Chloride 93.1 L Carbon Dioxide 33 H BUN Creatinine Glucose 161 H POC Glucose Calcium Phosphorus Magnesium ALT Alkaline Phosphatase 136 H Total Creatine Kinase 37 L CK-MB (CK-2) Rel Index Troponin T 0.192 H* Albumin 2.4 L LDL Cholesterol Direct 36 L PTH Intact Salicylates Acetaminophen Crossmatch 02/21/19 02/21/19 02/21/19 18:42 20:04 20:04 WBC RBC Hgb Hct MCH MCHC RDW Lymph % (Auto) [place] % (Auto) Eos % (Auto) Lymph # [place] # Eos # Seg Neutrophils % Seg Neuts % (Manual) Lymphocytes % (Manual) Eosinophils % (Manual) Seg Neutrophils # Lymphocytes # (Manual) Eosinophils # (Manual) PT INR D-Dimer POC ABG pH POC ABG pCO2 56.7 H POC ABG pO2 291 H ABG pO2 ABG HCO3 ABG Base Excess ABG Hemoglobin Oxyhemoglobin Sodium Potassium Chloride Carbon Dioxide BUN Creatinine Glucose POC Glucose Calcium Phosphorus Magnesium ALT Alkaline Phosphatase Total Creatine Kinase CK-MB (CK-2) Rel Index Troponin T Albumin LDL Cholesterol Direct PTH Intact Salicylates < 0.3 L Acetaminophen < 5.0 L Crossmatch 02/21/19 02/22/19 02/22/19 22:35 03:42 03:42 WBC RBC 3.20 L Hgb 8.8 L Hct 27.6 L MCH MCHC RDW 18.9 H Lymph % (Auto) 7.4 L [place] % (Auto) Eos % (Auto) Lymph # 0.7 L [place] # Eos # Seg Neutrophils % 84.7 H Seg Neuts % (Manual) Lymphocytes % (Manual) Eosinophils % (Manual) Seg Neutrophils # Lymphocytes # (Manual) Eosinophils # (Manual) PT INR D-Dimer POC ABG pH POC ABG pCO2 POC ABG pO2 ABG pO2 ABG HCO3 ABG Base Excess ABG Hemoglobin Oxyhemoglobin Sodium 134 L Potassium 2.6 L* D Chloride Carbon Dioxide BUN Creatinine Glucose POC Glucose Calcium Phosphorus Magnesium ALT Alkaline Phosphatase Total Creatine Kinase CK-MB (CK-2) Rel Index 5.2 H Troponin T 0.202 H* Albumin LDL Cholesterol Direct PTH Intact Salicylates Acetaminophen Crossmatch 02/22/19 02/22/19 02/22/19 03:42 05:54 09:04 WBC RBC Hgb Hct MCH MCHC RDW Lymph % (Auto) [place] % (Auto) Eos % (Auto) Lymph # [place] # Eos # Seg Neutrophils % Seg Neuts % (Manual) Lymphocytes % (Manual) Eosinophils % (Manual) Seg Neutrophils # Lymphocytes # (Manual) Eosinophils # (Manual) PT INR D-Dimer 2987.82 H POC ABG pH 7.451 H POC ABG pCO2 POC ABG pO2 ABG pO2 ABG HCO3 ABG Base Excess ABG Hemoglobin Oxyhemoglobin Sodium Potassium Chloride Carbon Dioxide BUN Creatinine Glucose POC Glucose Calcium Phosphorus Magnesium ALT Alkaline Phosphatase Total Creatine Kinase CK-MB (CK-2) Rel Index 5.7 H Troponin T 0.193 H* Albumin LDL Cholesterol Direct PTH Intact Salicylates Acetaminophen Crossmatch 02/22/19 02/22/19 02/23/19 10:36 23:56 00:52 WBC RBC Hgb Hct MCH MCHC RDW Lymph % (Auto) [place] % (Auto) Eos % (Auto) Lymph # [place] # Eos # Seg Neutrophils % Seg Neuts % (Manual) Lymphocytes % (Manual) Eosinophils % (Manual) Seg Neutrophils # Lymphocytes # (Manual) Eosinophils # (Manual) PT INR D-Dimer POC ABG pH POC ABG pCO2 POC ABG pO2 ABG pO2 ABG HCO3 ABG Base Excess ABG Hemoglobin Oxyhemoglobin Sodium Potassium 3.1 L Chloride Carbon Dioxide BUN Creatinine Glucose POC Glucose 58 L 111 H Calcium Phosphorus Magnesium ALT Alkaline Phosphatase Total Creatine Kinase CK-MB (CK-2) Rel Index Troponin T Albumin LDL Cholesterol Direct PTH Intact Salicylates Acetaminophen Crossmatch 02/23/19 02/23/19 02/23/19 05:00 06:35 14:26 WBC RBC Hgb Hct MCH MCHC RDW Lymph % (Auto) [place] % (Auto) Eos % (Auto) Lymph # [place] # Eos # Seg Neutrophils % Seg Neuts % (Manual) Lymphocytes % (Manual) Eosinophils % (Manual) Seg Neutrophils # Lymphocytes # (Manual) Eosinophils # (Manual) PT INR D-Dimer POC ABG pH POC ABG pCO2 POC ABG pO2 ABG pO2 ABG HCO3 ABG Base Excess ABG Hemoglobin Oxyhemoglobin Sodium 135 L Potassium 3.1 L Chloride Carbon Dioxide BUN 21 H Creatinine 2.0 H Glucose 57 L POC Glucose 64 L 62 L Calcium Phosphorus Magnesium ALT Alkaline Phosphatase Total Creatine Kinase CK-MB (CK-2) Rel Index Troponin T Albumin LDL Cholesterol Direct PTH Intact Salicylates Acetaminophen Crossmatch 02/24/19 02/24/19 02/24/19 02:11 04:12 04:55 WBC RBC 2.84 L Hgb 7.8 L Hct 24.5 L MCH MCHC RDW 19.5 H Lymph % (Auto) [place] % (Auto) Eos % (Auto) Lymph # [place] # Eos # Seg Neutrophils % Seg Neuts % (Manual) Lymphocytes % (Manual) Eosinophils % (Manual) Seg Neutrophils # Lymphocytes # (Manual) Eosinophils # (Manual) PT INR D-Dimer POC ABG pH 7.511 H POC ABG pCO2 33.9 L POC ABG pO2 62 L ABG pO2 ABG HCO3 ABG Base Excess ABG Hemoglobin Oxyhemoglobin Sodium Potassium Chloride Carbon Dioxide BUN Creatinine Glucose POC Glucose 69 L Calcium Phosphorus Magnesium ALT Alkaline Phosphatase Total Creatine Kinase CK-MB (CK-2) Rel Index Troponin T Albumin LDL Cholesterol Direct PTH Intact Salicylates Acetaminophen Crossmatch 02/24/19 02/24/19 02/25/19 04:55 05:41 04:45 WBC RBC Hgb Hct MCH MCHC RDW Lymph % (Auto) [place] % (Auto) Eos % (Auto) Lymph # [place] # Eos # Seg Neutrophils % Seg Neuts % (Manual) Lymphocytes % (Manual) Eosinophils % (Manual) Seg Neutrophils # Lymphocytes # (Manual) Eosinophils # (Manual) PT INR D-Dimer POC ABG pH 7.466 H POC ABG pCO2 POC ABG pO2 75 L ABG pO2 ABG HCO3 ABG Base Excess ABG Hemoglobin Oxyhemoglobin Sodium Potassium Chloride Carbon Dioxide BUN Creatinine 1.8 H Glucose 73 L POC Glucose 127 H Calcium Phosphorus Magnesium ALT Alkaline Phosphatase Total Creatine Kinase CK-MB (CK-2) Rel Index Troponin T Albumin LDL Cholesterol Direct PTH Intact Salicylates Acetaminophen Crossmatch 02/25/19 02/25/19 02/26/19 16:34 21:33 03:45 WBC RBC 2.96 L Hgb 8.0 L Hct 25.8 L MCH 27 L MCHC 31 L RDW 20.0 H Lymph % (Auto) [place] % (Auto) Eos % (Auto) Lymph # [place] # Eos # Seg Neutrophils % Seg Neuts % (Manual) Lymphocytes % (Manual) Eosinophils % (Manual) Seg Neutrophils # Lymphocytes # (Manual) Eosinophils # (Manual) PT INR D-Dimer POC ABG pH POC ABG pCO2 POC ABG pO2 ABG pO2 ABG HCO3 ABG Base Excess ABG Hemoglobin Oxyhemoglobin Sodium Potassium Chloride Carbon Dioxide BUN Creatinine Glucose POC Glucose 141 H 106 H Calcium Phosphorus Magnesium ALT Alkaline Phosphatase Total Creatine Kinase CK-MB (CK-2) Rel Index Troponin T Albumin LDL Cholesterol Direct PTH Intact Salicylates Acetaminophen Crossmatch 02/26/19 02/26/19 02/26/19 03:45 04:13 07:53 WBC RBC Hgb Hct MCH MCHC RDW Lymph % (Auto) [place] % (Auto) Eos % (Auto) Lymph # [place] # Eos # Seg Neutrophils % Seg Neuts % (Manual) Lymphocytes % (Manual) Eosinophils % (Manual) Seg Neutrophils # Lymphocytes # (Manual) Eosinophils # (Manual) PT INR D-Dimer POC ABG pH 7.470 H POC ABG pCO2 POC ABG pO2 ABG pO2 ABG HCO3 ABG Base Excess ABG Hemoglobin Oxyhemoglobin Sodium Potassium Chloride Carbon Dioxide BUN Creatinine 1.8 H Glucose POC Glucose 110 H Calcium Phosphorus Magnesium ALT Alkaline Phosphatase Total Creatine Kinase CK-MB (CK-2) Rel Index Troponin T Albumin LDL Cholesterol Direct PTH Intact Salicylates Acetaminophen Crossmatch 02/26/19 02/26/19 02/27/19 11:56 17:43 00:12 WBC RBC Hgb Hct MCH MCHC RDW Lymph % (Auto) [place] % (Auto) Eos % (Auto) Lymph # [place] # Eos # Seg Neutrophils % Seg Neuts % (Manual) Lymphocytes % (Manual) Eosinophils % (Manual) Seg Neutrophils # Lymphocytes # (Manual) Eosinophils # (Manual) PT INR D-Dimer POC ABG pH POC ABG pCO2 POC ABG pO2 ABG pO2 ABG HCO3 ABG Base Excess ABG Hemoglobin Oxyhemoglobin Sodium Potassium Chloride Carbon Dioxide BUN Creatinine Glucose POC Glucose 112 H 127 H 127 H Calcium Phosphorus Magnesium ALT Alkaline Phosphatase Total Creatine Kinase CK-MB (CK-2) Rel Index Troponin T Albumin LDL Cholesterol Direct PTH Intact Salicylates Acetaminophen Crossmatch 02/27/19 02/27/19 02/27/19 04:35 13:15 18:02 WBC RBC Hgb Hct MCH MCHC RDW Lymph % (Auto) [place] % (Auto) Eos % (Auto) Lymph # [place] # Eos # Seg Neutrophils % Seg Neuts % (Manual) Lymphocytes % (Manual) Eosinophils % (Manual) Seg Neutrophils # Lymphocytes # (Manual) Eosinophils # (Manual) PT INR D-Dimer POC ABG pH 7.483 H POC ABG pCO2 POC ABG pO2 61 L ABG pO2 ABG HCO3 ABG Base Excess ABG Hemoglobin Oxyhemoglobin Sodium Potassium Chloride Carbon Dioxide BUN Creatinine Glucose POC Glucose 143 H 106 H Calcium Phosphorus Magnesium ALT Alkaline Phosphatase Total Creatine Kinase CK-MB (CK-2) Rel Index Troponin T Albumin LDL Cholesterol Direct PTH Intact Salicylates Acetaminophen Crossmatch 02/28/19 02/28/19 02/28/19 05:50 11:59 17:52 WBC RBC Hgb Hct MCH MCHC RDW Lymph % (Auto) [place] % (Auto) Eos % (Auto) Lymph # [place] # Eos # Seg Neutrophils % Seg Neuts % (Manual) Lymphocytes % (Manual) Eosinophils % (Manual) Seg Neutrophils # Lymphocytes # (Manual) Eosinophils # (Manual) PT INR D-Dimer POC ABG pH POC ABG pCO2 POC ABG pO2 ABG pO2 ABG HCO3 ABG Base Excess ABG Hemoglobin Oxyhemoglobin Sodium Potassium Chloride Carbon Dioxide BUN Creatinine Glucose POC Glucose 134 H 128 H 142 H Calcium Phosphorus Magnesium ALT Alkaline Phosphatase Total Creatine Kinase CK-MB (CK-2) Rel Index Troponin T Albumin LDL Cholesterol Direct PTH Intact Salicylates Acetaminophen Crossmatch 02/28/19 03/01/19 03/01/19 23:13 05:40 09:39 WBC RBC Hgb Hct MCH MCHC RDW Lymph % (Auto) [place] % (Auto) Eos % (Auto) Lymph # [place] # Eos # Seg Neutrophils % Seg Neuts % (Manual) Lymphocytes % (Manual) Eosinophils % (Manual) Seg Neutrophils # Lymphocytes # (Manual) Eosinophils # (Manual) PT 16.3 H INR 1.35 H D-Dimer POC ABG pH POC ABG pCO2 POC ABG pO2 ABG pO2 ABG HCO3 ABG Base Excess ABG Hemoglobin Oxyhemoglobin Sodium Potassium Chloride Carbon Dioxide BUN Creatinine Glucose POC Glucose 112 H 111 H Calcium Phosphorus Magnesium ALT Alkaline Phosphatase Total Creatine Kinase CK-MB (CK-2) Rel Index Troponin T Albumin LDL Cholesterol Direct PTH Intact Salicylates Acetaminophen Crossmatch 03/01/19 03/01/19 03/01/19 11:56 13:54 17:59 WBC RBC Hgb Hct MCH MCHC RDW Lymph % (Auto) [place] % (Auto) Eos % (Auto) Lymph # [place] # Eos # Seg Neutrophils % Seg Neuts % (Manual) Lymphocytes % (Manual) Eosinophils % (Manual) Seg Neutrophils # Lymphocytes # (Manual) Eosinophils # (Manual) PT INR D-Dimer POC ABG pH POC ABG pCO2 POC ABG pO2 ABG pO2 ABG HCO3 ABG Base Excess ABG Hemoglobin Oxyhemoglobin Sodium Potassium Chloride Carbon Dioxide BUN 33 H Creatinine 2.8 H D Glucose 176 H POC Glucose 199 H 147 H Calcium Phosphorus Magnesium ALT Alkaline Phosphatase Total Creatine Kinase CK-MB (CK-2) Rel Index Troponin T Albumin LDL Cholesterol Direct PTH Intact Salicylates Acetaminophen Crossmatch 03/02/19 03/02/19 03/02/19 05:15 05:15 05:15 WBC RBC 2.73 L Hgb 7.4 L Hct 23.0 L MCH 27 L MCHC RDW 19.9 H Lymph % (Auto) [place] % (Auto) 7.9 H Eos % (Auto) 7.6 H Lymph # 1.0 L [place] # Eos # 0.5 H Seg Neutrophils % Seg Neuts % (Manual) Lymphocytes % (Manual) Eosinophils % (Manual) Seg Neutrophils # Lymphocytes # (Manual) Eosinophils # (Manual) PT INR D-Dimer POC ABG pH POC ABG pCO2 POC ABG pO2 ABG pO2 ABG HCO3 ABG Base Excess ABG Hemoglobin Oxyhemoglobin Sodium Potassium Chloride Carbon Dioxide BUN 43 H Creatinine 3.2 H Glucose POC Glucose Calcium Phosphorus 2.30 L Magnesium ALT Alkaline Phosphatase Total Creatine Kinase CK-MB (CK-2) Rel Index Troponin T Albumin LDL Cholesterol Direct PTH Intact 267.6 H Salicylates Acetaminophen Crossmatch 03/02/19 03/02/19 03/03/19 12:32 18:20 13:30 WBC RBC Hgb Hct MCH MCHC RDW Lymph % (Auto) [place] % (Auto) Eos % (Auto) Lymph # [place] # Eos # Seg Neutrophils % Seg Neuts % (Manual) Lymphocytes % (Manual) Eosinophils % (Manual) Seg Neutrophils # Lymphocytes # (Manual) Eosinophils # (Manual) PT INR D-Dimer POC ABG pH POC ABG pCO2 POC ABG pO2 ABG pO2 ABG HCO3 ABG Base Excess ABG Hemoglobin Oxyhemoglobin Sodium Potassium Chloride 97.3 L Carbon Dioxide BUN 26 H Creatinine 2.2 H Glucose 73 L POC Glucose 111 H 156 H Calcium Phosphorus Magnesium ALT Alkaline Phosphatase Total Creatine Kinase CK-MB (CK-2) Rel Index Troponin T Albumin LDL Cholesterol Direct PTH Intact Salicylates Acetaminophen Crossmatch 03/04/19 03/04/19 03/04/19 00:02 05:37 05:40 WBC RBC 2.63 L Hgb 7.2 L Hct 22.2 L MCH MCHC RDW 20.2 H Lymph % (Auto) 10.5 L [place] % (Auto) Eos % (Auto) 4.6 H Lymph # 0.7 L [place] # Eos # Seg Neutrophils % 76.9 H Seg Neuts % (Manual) Lymphocytes % (Manual) Eosinophils % (Manual) Seg Neutrophils # Lymphocytes # (Manual) Eosinophils # (Manual) PT INR D-Dimer POC ABG pH POC ABG pCO2 POC ABG pO2 ABG pO2 ABG HCO3 ABG Base Excess ABG Hemoglobin Oxyhemoglobin Sodium Potassium Chloride Carbon Dioxide BUN Creatinine Glucose POC Glucose 136 H 123 H Calcium Phosphorus Magnesium ALT Alkaline Phosphatase Total Creatine Kinase CK-MB (CK-2) Rel Index Troponin T Albumin LDL Cholesterol Direct PTH Intact Salicylates Acetaminophen Crossmatch 03/04/19 03/04/19 03/04/19 05:40 11:39 23:20 WBC RBC Hgb Hct MCH MCHC RDW Lymph % (Auto) [place] % (Auto) Eos % (Auto) Lymph # [place] # Eos # Seg Neutrophils % Seg Neuts % (Manual) Lymphocytes % (Manual) Eosinophils % (Manual) Seg Neutrophils # Lymphocytes # (Manual) Eosinophils # (Manual) PT INR D-Dimer POC ABG pH POC ABG pCO2 POC ABG pO2 ABG pO2 ABG HCO3 ABG Base Excess ABG Hemoglobin Oxyhemoglobin Sodium Potassium Chloride Carbon Dioxide BUN 34 H Creatinine 2.7 H Glucose 114 H POC Glucose 175 H 151 H Calcium Phosphorus Magnesium ALT Alkaline Phosphatase Total Creatine Kinase CK-MB (CK-2) Rel Index Troponin T Albumin LDL Cholesterol Direct PTH Intact Salicylates Acetaminophen Crossmatch 03/05/19 03/05/19 03/05/19 05:37 12:08 17:11 WBC RBC Hgb Hct MCH MCHC RDW Lymph % (Auto) [place] % (Auto) Eos % (Auto) Lymph # [place] # Eos # Seg Neutrophils % Seg Neuts % (Manual) Lymphocytes % (Manual) Eosinophils % (Manual) Seg Neutrophils # Lymphocytes # (Manual) Eosinophils # (Manual) PT INR D-Dimer POC ABG pH POC ABG pCO2 POC ABG pO2 ABG pO2 ABG HCO3 ABG Base Excess ABG Hemoglobin Oxyhemoglobin Sodium Potassium Chloride Carbon Dioxide BUN Creatinine Glucose POC Glucose 134 H 135 H 135 H Calcium Phosphorus Magnesium ALT Alkaline Phosphatase Total Creatine Kinase CK-MB (CK-2) Rel Index Troponin T Albumin LDL Cholesterol Direct PTH Intact Salicylates Acetaminophen Crossmatch 0803/06/19 03/06/19 00:16 13:05 18:09 WBC RBC Hgb Hct MCH MCHC RDW Lymph % (Auto) [place] % (Auto) Eos % (Auto) Lymph # [place] # Eos # Seg Neutrophils % Seg Neuts % (Manual) Lymphocytes % (Manual) Eosinophils % (Manual) Seg Neutrophils # Lymphocytes # (Manual) Eosinophils # (Manual) PT INR D-Dimer POC ABG pH POC ABG pCO2 POC ABG pO2 ABG pO2 ABG HCO3 ABG Base Excess ABG Hemoglobin Oxyhemoglobin Sodium Potassium Chloride Carbon Dioxide BUN Creatinine Glucose POC Glucose 117 H 113 H 131 H Calcium Phosphorus Magnesium ALT Alkaline Phosphatase Total Creatine Kinase CK-MB (CK-2) Rel Index Troponin T Albumin LDL Cholesterol Direct PTH Intact Salicylates Acetaminophen Crossmatch 03/07/19 03/08/19 03/08/19 05:25 05:33 16:00 WBC RBC 2.44 L Hgb 6.6 L Hct 20.8 L MCH 27 L MCHC RDW 19.2 H Lymph % (Auto) [place] % (Auto) Eos % (Auto) 8.6 H Lymph # 0.8 L [place] # Eos # 0.5 H Seg Neutrophils % 70.7 H Seg Neuts % (Manual) Lymphocytes % (Manual) Eosinophils % (Manual) Seg Neutrophils # Lymphocytes # (Manual) Eosinophils # (Manual) PT INR D-Dimer POC ABG pH POC ABG pCO2 POC ABG pO2 ABG pO2 ABG HCO3 ABG Base Excess ABG Hemoglobin Oxyhemoglobin Sodium Potassium Chloride Carbon Dioxide BUN Creatinine Glucose POC Glucose 106 H 108 H Calcium Phosphorus Magnesium ALT Alkaline Phosphatase Total Creatine Kinase CK-MB (CK-2) Rel Index Troponin T Albumin LDL Cholesterol Direct PTH Intact Salicylates Acetaminophen Crossmatch 03/08/19 03/08/19 03/08/19 16:00 18:38 Unknown WBC RBC Hgb Hct MCH MCHC RDW Lymph % (Auto) [place] % (Auto) Eos % (Auto) Lymph # [place] # Eos # Seg Neutrophils % Seg Neuts % (Manual) Lymphocytes % (Manual) Eosinophils % (Manual) Seg Neutrophils # Lymphocytes # (Manual) Eosinophils # (Manual) PT INR D-Dimer POC ABG pH POC ABG pCO2 POC ABG pO2 ABG pO2 ABG HCO3 ABG Base Excess ABG Hemoglobin Oxyhemoglobin Sodium Potassium 5.4 H D Chloride Carbon Dioxide BUN 47 H Creatinine 2.6 H Glucose POC Glucose 123 H Calcium Phosphorus Magnesium ALT < 5 L Alkaline Phosphatase Total Creatine Kinase CK-MB (CK-2) Rel Index Troponin T Albumin 2.2 L LDL Cholesterol Direct PTH Intact Salicylates Acetaminophen Crossmatch See Detail 03/09/19 03/09/19 03/09/19 10:48 12:28 13:53 WBC RBC 2.85 L Hgb 7.7 L Hct 24.2 L MCH 27 L MCHC RDW 18.7 H Lymph % (Auto) [place] % (Auto) Eos % (Auto) Lymph # [place] # Eos # Seg Neutrophils % Seg Neuts % (Manual) Lymphocytes % (Manual) Eosinophils % (Manual) Seg Neutrophils # Lymphocytes # (Manual) Eosinophils # (Manual) PT INR D-Dimer POC ABG pH POC ABG pCO2 POC ABG pO2 ABG pO2 ABG HCO3 30.5 H ABG Base Excess 5.6 H ABG Hemoglobin 8.1 L Oxyhemoglobin 93.8 L Sodium Potassium Chloride Carbon Dioxide BUN Creatinine Glucose POC Glucose 114 H Calcium Phosphorus Magnesium ALT Alkaline Phosphatase Total Creatine Kinase CK-MB (CK-2) Rel Index Troponin T Albumin LDL Cholesterol Direct PTH Intact Salicylates Acetaminophen Crossmatch 03/09/19 03/09/19 03/10/19 17:58 23:53 12:01 WBC RBC Hgb Hct MCH MCHC RDW Lymph % (Auto) [place] % (Auto) Eos % (Auto) Lymph # [place] # Eos # Seg Neutrophils % Seg Neuts % (Manual) Lymphocytes % (Manual) Eosinophils % (Manual) Seg Neutrophils # Lymphocytes # (Manual) Eosinophils # (Manual) PT INR D-Dimer POC ABG pH POC ABG pCO2 POC ABG pO2 ABG pO2 ABG HCO3 ABG Base Excess ABG Hemoglobin Oxyhemoglobin Sodium Potassium Chloride Carbon Dioxide BUN Creatinine Glucose POC Glucose 108 H 128 H 144 H Calcium Phosphorus Magnesium ALT Alkaline Phosphatase Total Creatine Kinase CK-MB (CK-2) Rel Index Troponin T Albumin LDL Cholesterol Direct PTH Intact Salicylates Acetaminophen Crossmatch 03/10/19 03/11/19 03/11/19 16:50 00:24 05:02 WBC RBC Hgb Hct MCH MCHC RDW Lymph % (Auto) [place] % (Auto) Eos % (Auto) Lymph # [place] # Eos # Seg Neutrophils % Seg Neuts % (Manual) Lymphocytes % (Manual) Eosinophils % (Manual) Seg Neutrophils # Lymphocytes # (Manual) Eosinophils # (Manual) PT INR D-Dimer POC ABG pH POC ABG pCO2 POC ABG pO2 ABG pO2 ABG HCO3 ABG Base Excess ABG Hemoglobin Oxyhemoglobin Sodium Potassium Chloride Carbon Dioxide BUN Creatinine Glucose POC Glucose 147 H 123 H 120 H Calcium Phosphorus Magnesium ALT Alkaline Phosphatase Total Creatine Kinase CK-MB (CK-2) Rel Index Troponin T Albumin LDL Cholesterol Direct PTH Intact Salicylates Acetaminophen Crossmatch 03/11/19 03/11/19 03/11/19 11:56 12:20 18:37 WBC RBC Hgb Hct MCH MCHC RDW Lymph % (Auto) [place] % (Auto) Eos % (Auto) Lymph # [place] # Eos # Seg Neutrophils % Seg Neuts % (Manual) Lymphocytes % (Manual) Eosinophils % (Manual) Seg Neutrophils # Lymphocytes # (Manual) Eosinophils # (Manual) PT INR D-Dimer POC ABG pH POC ABG pCO2 POC ABG pO2 ABG pO2 ABG HCO3 ABG Base Excess ABG Hemoglobin Oxyhemoglobin Sodium Potassium 5.2 H Chloride Carbon Dioxide BUN Creatinine Glucose POC Glucose 123 H 125 H Calcium Phosphorus Magnesium ALT Alkaline Phosphatase Total Creatine Kinase CK-MB (CK-2) Rel Index Troponin T Albumin LDL Cholesterol Direct PTH Intact Salicylates Acetaminophen Crossmatch 03/11/19 03/12/19 03/12/19 22:52 12:04 18:25 WBC RBC Hgb Hct MCH MCHC RDW Lymph % (Auto) [place] % (Auto) Eos % (Auto) Lymph # [place] # Eos # Seg Neutrophils % Seg Neuts % (Manual) Lymphocytes % (Manual) Eosinophils % (Manual) Seg Neutrophils # Lymphocytes # (Manual) Eosinophils # (Manual) PT INR D-Dimer POC ABG pH POC ABG pCO2 POC ABG pO2 ABG pO2 ABG HCO3 ABG Base Excess ABG Hemoglobin Oxyhemoglobin Sodium Potassium Chloride Carbon Dioxide BUN Creatinine Glucose POC Glucose 110 H 106 H 118 H Calcium Phosphorus Magnesium ALT Alkaline Phosphatase Total Creatine Kinase CK-MB (CK-2) Rel Index Troponin T Albumin LDL Cholesterol Direct PTH Intact Salicylates Acetaminophen Crossmatch 03/12/19 03/13/19 03/13/19 23:36 04:38 04:38 WBC RBC 2.95 L Hgb 7.9 L Hct 24.9 L MCH 27 L MCHC RDW 19.9 H Lymph % (Auto) 11.1 L [place] % (Auto) 8.1 H Eos % (Auto) 4.4 H Lymph # 0.9 L [place] # Eos # Seg Neutrophils % 75.4 H Seg Neuts % (Manual) Lymphocytes % (Manual) Eosinophils % (Manual) Seg Neutrophils # Lymphocytes # (Manual) Eosinophils # (Manual) PT INR D-Dimer POC ABG pH POC ABG pCO2 POC ABG pO2 ABG pO2 ABG HCO3 ABG Base Excess ABG Hemoglobin Oxyhemoglobin Sodium 136 L Potassium 5.1 H Chloride 93.8 L Carbon Dioxide BUN 48 H Creatinine 2.7 H Glucose 102 H POC Glucose 115 H Calcium Phosphorus Magnesium ALT < 5 L Alkaline Phosphatase 143 H Total Creatine Kinase CK-MB (CK-2) Rel Index Troponin T Albumin 2.5 L LDL Cholesterol Direct PTH Intact Salicylates Acetaminophen Crossmatch 03/13/19 03/13/19 03/13/19 05:33 13:37 18:03 WBC RBC Hgb Hct MCH MCHC RDW Lymph % (Auto) [place] % (Auto) Eos % (Auto) Lymph # [place] # Eos # Seg Neutrophils % Seg Neuts % (Manual) Lymphocytes % (Manual) Eosinophils % (Manual) Seg Neutrophils # Lymphocytes # (Manual) Eosinophils # (Manual) PT INR D-Dimer POC ABG pH POC ABG pCO2 POC ABG pO2 ABG pO2 ABG HCO3 ABG Base Excess ABG Hemoglobin Oxyhemoglobin Sodium Potassium Chloride Carbon Dioxide BUN Creatinine Glucose POC Glucose 140 H 150 H 158 H Calcium Phosphorus Magnesium ALT Alkaline Phosphatase Total Creatine Kinase CK-MB (CK-2) Rel Index Troponin T Albumin LDL Cholesterol Direct PTH Intact Salicylates Acetaminophen Crossmatch 03/13/19 03/14/19 03/14/19 23:32 05:24 12:20 WBC RBC Hgb Hct MCH MCHC RDW Lymph % (Auto) [place] % (Auto) Eos % (Auto) Lymph # [place] # Eos # Seg Neutrophils % Seg Neuts % (Manual) Lymphocytes % (Manual) Eosinophils % (Manual) Seg Neutrophils # Lymphocytes # (Manual) Eosinophils # (Manual) PT INR D-Dimer POC ABG pH POC ABG pCO2 POC ABG pO2 ABG pO2 ABG HCO3 ABG Base Excess ABG Hemoglobin Oxyhemoglobin Sodium Potassium Chloride Carbon Dioxide BUN Creatinine Glucose POC Glucose 162 H 146 H 127 H Calcium Phosphorus Magnesium ALT Alkaline Phosphatase Total Creatine Kinase CK-MB (CK-2) Rel Index Troponin T Albumin LDL Cholesterol Direct PTH Intact Salicylates Acetaminophen Crossmatch 03/14/19 03/14/19 03/15/19 18:05 23:57 04:38 WBC 12.8 H RBC 3.11 L Hgb 8.1 L Hct 26.5 L MCH 26 L MCHC 31 L RDW 19.7 H Lymph % (Auto) 4.4 L [place] % (Auto) 7.4 H Eos % (Auto) Lymph # 0.6 L [place] # 0.9 H Eos # Seg Neutrophils % 87.3 H Seg Neuts % (Manual) Lymphocytes % (Manual) Eosinophils % (Manual) Seg Neutrophils # 11.2 H Lymphocytes # (Manual) Eosinophils # (Manual) PT INR D-Dimer POC ABG pH POC ABG pCO2 POC ABG pO2 ABG pO2 ABG HCO3 ABG Base Excess ABG Hemoglobin Oxyhemoglobin Sodium Potassium Chloride Carbon Dioxide BUN Creatinine Glucose POC Glucose 142 H 155 H Calcium Phosphorus Magnesium ALT Alkaline Phosphatase Total Creatine Kinase CK-MB (CK-2) Rel Index Troponin T Albumin LDL Cholesterol Direct PTH Intact Salicylates Acetaminophen Crossmatch 03/15/19 03/15/19 03/15/19 04:38 05:31 11:32 WBC RBC Hgb Hct MCH MCHC RDW Lymph % (Auto) [place] % (Auto) Eos % (Auto) Lymph # [place] # Eos # Seg Neutrophils % Seg Neuts % (Manual) Lymphocytes % (Manual) Eosinophils % (Manual) Seg Neutrophils # Lymphocytes # (Manual) Eosinophils # (Manual) PT INR D-Dimer POC ABG pH POC ABG pCO2 POC ABG pO2 ABG pO2 ABG HCO3 ABG Base Excess ABG Hemoglobin Oxyhemoglobin Sodium 135 L Potassium Chloride 91.9 L Carbon Dioxide BUN 54 H Creatinine 2.8 H Glucose 128 H POC Glucose 160 H 109 H Calcium 11.1 H Phosphorus Magnesium ALT Alkaline Phosphatase 161 H Total Creatine Kinase CK-MB (CK-2) Rel Index Troponin T Albumin 2.3 L LDL Cholesterol Direct PTH Intact Salicylates Acetaminophen Crossmatch 03/15/19 03/15/19 03/16/19 18:15 23:41 05:40 WBC RBC Hgb Hct MCH MCHC RDW Lymph % (Auto) [place] % (Auto) Eos % (Auto) Lymph # [place] # Eos # Seg Neutrophils % Seg Neuts % (Manual) Lymphocytes % (Manual) Eosinophils % (Manual) Seg Neutrophils # Lymphocytes # (Manual) Eosinophils # (Manual) PT INR D-Dimer POC ABG pH POC ABG pCO2 POC ABG pO2 ABG pO2 ABG HCO3 ABG Base Excess ABG Hemoglobin Oxyhemoglobin Sodium Potassium Chloride Carbon Dioxide BUN Creatinine Glucose POC Glucose 151 H 110 H 163 H Calcium Phosphorus Magnesium ALT Alkaline Phosphatase Total Creatine Kinase CK-MB (CK-2) Rel Index Troponin T Albumin LDL Cholesterol Direct PTH Intact Salicylates Acetaminophen Crossmatch 03/16/19 03/16/19 03/16/19 11:55 17:04 23:58 WBC RBC Hgb Hct MCH MCHC RDW Lymph % (Auto) [place] % (Auto) Eos % (Auto) Lymph # [place] # Eos # Seg Neutrophils % Seg Neuts % (Manual) Lymphocytes % (Manual) Eosinophils % (Manual) Seg Neutrophils # Lymphocytes # (Manual) Eosinophils # (Manual) PT INR D-Dimer POC ABG pH POC ABG pCO2 POC ABG pO2 ABG pO2 ABG HCO3 ABG Base Excess ABG Hemoglobin Oxyhemoglobin Sodium Potassium Chloride Carbon Dioxide BUN Creatinine Glucose POC Glucose 114 H 147 H 192 H Calcium Phosphorus Magnesium ALT Alkaline Phosphatase Total Creatine Kinase CK-MB (CK-2) Rel Index Troponin T Albumin LDL Cholesterol Direct PTH Intact Salicylates Acetaminophen Crossmatch 03/17/19 03/17/19 03/17/19 05:53 11:17 17:01 WBC RBC Hgb Hct MCH MCHC RDW Lymph % (Auto) [place] % (Auto) Eos % (Auto) Lymph # [place] # Eos # Seg Neutrophils % Seg Neuts % (Manual) Lymphocytes % (Manual) Eosinophils % (Manual) Seg Neutrophils # Lymphocytes # (Manual) Eosinophils # (Manual) PT INR D-Dimer POC ABG pH POC ABG pCO2 POC ABG pO2 ABG pO2 ABG HCO3 ABG Base Excess ABG Hemoglobin Oxyhemoglobin Sodium Potassium Chloride Carbon Dioxide BUN Creatinine Glucose POC Glucose 151 H 161 H 152 H Calcium Phosphorus Magnesium ALT Alkaline Phosphatase Total Creatine Kinase CK-MB (CK-2) Rel Index Troponin T Albumin LDL Cholesterol Direct PTH Intact Salicylates Acetaminophen Crossmatch 03/17/19 03/18/19 03/18/19 21:47 04:15 04:44 WBC RBC Hgb Hct MCH MCHC RDW Lymph % (Auto) [place] % (Auto) Eos % (Auto) Lymph # [place] # Eos # Seg Neutrophils % Seg Neuts % (Manual) Lymphocytes % (Manual) Eosinophils % (Manual) Seg Neutrophils # Lymphocytes # (Manual) Eosinophils # (Manual) PT INR D-Dimer POC ABG pH POC ABG pCO2 POC ABG pO2 ABG pO2 102.8 H ABG HCO3 28.3 H ABG Base Excess ABG Hemoglobin 10.4 L Oxyhemoglobin 94.5 L Sodium Potassium Chloride Carbon Dioxide BUN Creatinine Glucose POC Glucose 170 H 150 H Calcium Phosphorus Magnesium ALT Alkaline Phosphatase Total Creatine Kinase CK-MB (CK-2) Rel Index Troponin T Albumin LDL Cholesterol Direct PTH Intact Salicylates Acetaminophen Crossmatch 03/18/19 03/18/19 03/18/19 06:38 12:12 17:47 WBC RBC Hgb Hct MCH MCHC RDW Lymph % (Auto) [place] % (Auto) Eos % (Auto) Lymph # [place] # Eos # Seg Neutrophils % Seg Neuts % (Manual) Lymphocytes % (Manual) Eosinophils % (Manual) Seg Neutrophils # Lymphocytes # (Manual) Eosinophils # (Manual) PT INR D-Dimer POC ABG pH 7.510 H POC ABG pCO2 POC ABG pO2 164 H ABG pO2 ABG HCO3 ABG Base Excess ABG Hemoglobin Oxyhemoglobin Sodium Potassium Chloride Carbon Dioxide BUN Creatinine Glucose POC Glucose 145 H 149 H Calcium Phosphorus Magnesium ALT Alkaline Phosphatase Total Creatine Kinase CK-MB (CK-2) Rel Index Troponin T Albumin LDL Cholesterol Direct PTH Intact Salicylates Acetaminophen Crossmatch 03/18/19 03/19/19 03/19/19 23:25 01:11 04:23 WBC 15.6 H RBC 2.51 L Hgb 6.5 L Hct 21.6 L MCH 26 L MCHC 30 L RDW 19.8 H Lymph % (Auto) 6.0 L [place] % (Auto) Eos % (Auto) Lymph # 0.9 L [place] # 1.0 H Eos # Seg Neutrophils % 85.5 H Seg Neuts % (Manual) Lymphocytes % (Manual) Eosinophils % (Manual) Seg Neutrophils # 13.4 H Lymphocytes # (Manual) Eosinophils # (Manual) PT INR D-Dimer POC ABG pH POC ABG pCO2 POC ABG pO2 ABG pO2 78.3 L ABG HCO3 30.7 H ABG Base Excess 5.8 H ABG Hemoglobin 5.8 L Oxyhemoglobin 94.6 L Sodium Potassium Chloride Carbon Dioxide BUN Creatinine Glucose POC Glucose 190 H Calcium Phosphorus Magnesium ALT Alkaline Phosphatase Total Creatine Kinase CK-MB (CK-2) Rel Index Troponin T Albumin LDL Cholesterol Direct PTH Intact Salicylates Acetaminophen Crossmatch 03/19/19 03/19/19 03/19/19 05:22 05:35 08:54 WBC RBC Hgb Hct MCH MCHC RDW Lymph % (Auto) [place] % (Auto) Eos % (Auto) Lymph # [place] # Eos # Seg Neutrophils % Seg Neuts % (Manual) Lymphocytes % (Manual) Eosinophils % (Manual) Seg Neutrophils # Lymphocytes # (Manual) Eosinophils # (Manual) PT INR D-Dimer POC ABG pH POC ABG pCO2 POC ABG pO2 ABG pO2 ABG HCO3 ABG Base Excess ABG Hemoglobin Oxyhemoglobin Sodium Potassium Chloride Carbon Dioxide BUN Creatinine Glucose POC Glucose 167 H Calcium Phosphorus Magnesium ALT Alkaline Phosphatase Total Creatine Kinase CK-MB (CK-2) Rel Index Troponin T Albumin LDL Cholesterol Direct PTH Intact Salicylates Acetaminophen Crossmatch See Detail See Detail 03/19/19 03/19/19 03/19/19 12:36 17:02 23:25 WBC RBC Hgb Hct MCH MCHC RDW Lymph % (Auto) [place] % (Auto) Eos % (Auto) Lymph # [place] # Eos # Seg Neutrophils % Seg Neuts % (Manual) Lymphocytes % (Manual) Eosinophils % (Manual) Seg Neutrophils # Lymphocytes # (Manual) Eosinophils # (Manual) PT INR D-Dimer POC ABG pH POC ABG pCO2 POC ABG pO2 ABG pO2 ABG HCO3 ABG Base Excess ABG Hemoglobin Oxyhemoglobin Sodium Potassium Chloride Carbon Dioxide BUN Creatinine Glucose POC Glucose 167 H 135 H 136 H Calcium Phosphorus Magnesium ALT Alkaline Phosphatase Total Creatine Kinase CK-MB (CK-2) Rel Index Troponin T Albumin LDL Cholesterol Direct PTH Intact Salicylates Acetaminophen Crossmatch 03/20/19 03/20/19 03/20/19 05:38 08:40 08:40 WBC RBC 2.61 L Hgb 7.1 L Hct 22.0 L MCH 27 L MCHC RDW 19.6 H Lymph % (Auto) 8.2 L [place] % (Auto) 8.3 H Eos % (Auto) 5.7 H Lymph # 0.8 L [place] # Eos # 0.5 H Seg Neutrophils % 77.3 H Seg Neuts % (Manual) Lymphocytes % (Manual) Eosinophils % (Manual) Seg Neutrophils # Lymphocytes # (Manual) Eosinophils # (Manual) PT INR D-Dimer POC ABG pH POC ABG pCO2 POC ABG pO2 ABG pO2 ABG HCO3 ABG Base Excess ABG Hemoglobin Oxyhemoglobin Sodium Potassium Chloride 95.9 L Carbon Dioxide BUN 69 H Creatinine 2.8 H Glucose 115 H POC Glucose 134 H Calcium 10.5 H Phosphorus Magnesium ALT Alkaline Phosphatase Total Creatine Kinase CK-MB (CK-2) Rel Index Troponin T Albumin LDL Cholesterol Direct PTH Intact Salicylates Acetaminophen Crossmatch 03/20/19 03/20/19 03/20/19 12:13 18:04 23:49 WBC RBC Hgb Hct MCH MCHC RDW Lymph % (Auto) [place] % (Auto) Eos % (Auto) Lymph # [place] # Eos # Seg Neutrophils % Seg Neuts % (Manual) Lymphocytes % (Manual) Eosinophils % (Manual) Seg Neutrophils # Lymphocytes # (Manual) Eosinophils # (Manual) PT INR D-Dimer POC ABG pH POC ABG pCO2 POC ABG pO2 ABG pO2 ABG HCO3 ABG Base Excess ABG Hemoglobin Oxyhemoglobin Sodium Potassium Chloride Carbon Dioxide BUN Creatinine Glucose POC Glucose 144 H 165 H 172 H Calcium Phosphorus Magnesium ALT Alkaline Phosphatase Total Creatine Kinase CK-MB (CK-2) Rel Index Troponin T Albumin LDL Cholesterol Direct PTH Intact Salicylates Acetaminophen Crossmatch 03/21/19 03/21/19 03/21/19 05:00 06:29 06:30 WBC RBC 2.72 L Hgb 7.4 L Hct 22.9 L MCH 27 L MCHC RDW 19.4 H Lymph % (Auto) [place] % (Auto) Eos % (Auto) Lymph # [place] # Eos # Seg Neutrophils % Seg Neuts % (Manual) 81.0 H Lymphocytes % (Manual) 8.0 L Eosinophils % (Manual) 8.0 H Seg Neutrophils # Lymphocytes # (Manual) 0.7 L Eosinophils # (Manual) 0.7 H PT INR D-Dimer POC ABG pH POC ABG pCO2 POC ABG pO2 ABG pO2 ABG HCO3 ABG Base Excess ABG Hemoglobin Oxyhemoglobin Sodium Potassium Chloride Carbon Dioxide 33 H BUN 43 H Creatinine 1.7 H Glucose 145 H POC Glucose 156 H Calcium Phosphorus Magnesium ALT Alkaline Phosphatase 212 H Total Creatine Kinase CK-MB (CK-2) Rel Index Troponin T Albumin 2.2 L LDL Cholesterol Direct PTH Intact Salicylates Acetaminophen Crossmatch 03/21/19 03/21/19 03/22/19 12:02 18:07 00:21 WBC RBC Hgb Hct MCH MCHC RDW Lymph % (Auto) [place] % (Auto) Eos % (Auto) Lymph # [place] # Eos # Seg Neutrophils % Seg Neuts % (Manual) Lymphocytes % (Manual) Eosinophils % (Manual) Seg Neutrophils # Lymphocytes # (Manual) Eosinophils # (Manual) PT INR D-Dimer POC ABG pH POC ABG pCO2 POC ABG pO2 ABG pO2 ABG HCO3 ABG Base Excess ABG Hemoglobin Oxyhemoglobin Sodium Potassium Chloride Carbon Dioxide BUN Creatinine Glucose POC Glucose 163 H 144 H 153 H Calcium Phosphorus Magnesium ALT Alkaline Phosphatase Total Creatine Kinase CK-MB (CK-2) Rel Index Troponin T Albumin LDL Cholesterol Direct PTH Intact Salicylates Acetaminophen Crossmatch 03/22/19 03/22/19 03/22/19 05:23 05:23 05:31 WBC RBC 2.58 L Hgb 7.1 L Hct 21.8 L MCH 27 L MCHC RDW 19.2 H Lymph % (Auto) [place] % (Auto) Eos % (Auto) Lymph # [place] # Eos # Seg Neutrophils % Seg Neuts % (Manual) Lymphocytes % (Manual) Eosinophils % (Manual) Seg Neutrophils # Lymphocytes # (Manual) Eosinophils # (Manual) PT INR D-Dimer POC ABG pH POC ABG pCO2 POC ABG pO2 ABG pO2 ABG HCO3 ABG Base Excess ABG Hemoglobin Oxyhemoglobin Sodium 147 H Potassium Chloride Carbon Dioxide BUN 68 H Creatinine 2.5 H Glucose POC Glucose 116 H Calcium 10.3 H Phosphorus Magnesium ALT Alkaline Phosphatase Total Creatine Kinase CK-MB (CK-2) Rel Index Troponin T Albumin LDL Cholesterol Direct PTH Intact Salicylates Acetaminophen Crossmatch 03/22/19 03/22/19 03/22/19 08:48 12:37 17:35 WBC RBC Hgb Hct MCH MCHC RDW Lymph % (Auto) [place] % (Auto) Eos % (Auto) Lymph # [place] # Eos # Seg Neutrophils % Seg Neuts % (Manual) Lymphocytes % (Manual) Eosinophils % (Manual) Seg Neutrophils # Lymphocytes # (Manual) Eosinophils # (Manual) PT INR D-Dimer POC ABG pH POC ABG pCO2 POC ABG pO2 ABG pO2 ABG HCO3 ABG Base Excess ABG Hemoglobin Oxyhemoglobin Sodium Potassium Chloride Carbon Dioxide BUN Creatinine Glucose POC Glucose 143 H 155 H Calcium Phosphorus Magnesium ALT Alkaline Phosphatase Total Creatine Kinase CK-MB (CK-2) Rel Index Troponin T Albumin LDL Cholesterol Direct PTH Intact Salicylates Acetaminophen Crossmatch See Detail 03/23/19 03/23/19 03/23/19 00:07 04:00 04:00 WBC 11.2 H RBC 2.32 L Hgb 6.4 L Hct 19.7 L* MCH MCHC RDW 19.4 H Lymph % (Auto) [place] % (Auto) Eos % (Auto) Lymph # [place] # Eos # Seg Neutrophils % Seg Neuts % (Manual) Lymphocytes % (Manual) Eosinophils % (Manual) Seg Neutrophils # Lymphocytes # (Manual) Eosinophils # (Manual) PT INR D-Dimer POC ABG pH POC ABG pCO2 POC ABG pO2 ABG pO2 ABG HCO3 ABG Base Excess ABG Hemoglobin Oxyhemoglobin Sodium 147 H Potassium 5.2 H Chloride Carbon Dioxide BUN 86 H Creatinine 3.2 H Glucose 128 H POC Glucose 135 H Calcium 10.3 H Phosphorus Magnesium ALT Alkaline Phosphatase Total Creatine Kinase CK-MB (CK-2) Rel Index Troponin T Albumin LDL Cholesterol Direct PTH Intact Salicylates Acetaminophen Crossmatch 03/23/19 03/23/19 03/23/19 05:21 11:36 11:36 WBC RBC Hgb 7.9 L Hct 25.0 L MCH MCHC RDW Lymph % (Auto) [place] % (Auto) Eos % (Auto) Lymph # [place] # Eos # Seg Neutrophils % Seg Neuts % (Manual) Lymphocytes % (Manual) Eosinophils % (Manual) Seg Neutrophils # Lymphocytes # (Manual) Eosinophils # (Manual) PT INR D-Dimer POC ABG pH POC ABG pCO2 POC ABG pO2 ABG pO2 ABG HCO3 ABG Base Excess ABG Hemoglobin Oxyhemoglobin Sodium Potassium Chloride Carbon Dioxide BUN Creatinine Glucose POC Glucose 132 H 147 H Calcium Phosphorus Magnesium ALT Alkaline Phosphatase Total Creatine Kinase CK-MB (CK-2) Rel Index Troponin T Albumin LDL Cholesterol Direct PTH Intact Salicylates Acetaminophen Crossmatch 03/23/19 03/24/19 03/24/19 17:31 01:22 04:20 WBC 12.2 H RBC 3.05 L Hgb 8.3 L Hct 25.9 L MCH 27 L MCHC RDW 18.7 H Lymph % (Auto) [place] % (Auto) Eos % (Auto) Lymph # [place] # Eos # Seg Neutrophils % Seg Neuts % (Manual) Lymphocytes % (Manual) Eosinophils % (Manual) Seg Neutrophils # Lymphocytes # (Manual) Eosinophils # (Manual) PT INR D-Dimer POC ABG pH POC ABG pCO2 POC ABG pO2 ABG pO2 ABG HCO3 ABG Base Excess ABG Hemoglobin Oxyhemoglobin Sodium Potassium Chloride Carbon Dioxide BUN Creatinine Glucose POC Glucose 182 H 113 H Calcium Phosphorus Magnesium ALT Alkaline Phosphatase Total Creatine Kinase CK-MB (CK-2) Rel Index Troponin T Albumin LDL Cholesterol Direct PTH Intact Salicylates Acetaminophen Crossmatch 03/24/19 03/24/19 03/24/19 04:20 11:59 18:14 WBC RBC Hgb Hct MCH MCHC RDW Lymph % (Auto) [place] % (Auto) Eos % (Auto) Lymph # [place] # Eos # Seg Neutrophils % Seg Neuts % (Manual) Lymphocytes % (Manual) Eosinophils % (Manual) Seg Neutrophils # Lymphocytes # (Manual) Eosinophils # (Manual) PT INR D-Dimer POC ABG pH POC ABG pCO2 POC ABG pO2 ABG pO2 ABG HCO3 ABG Base Excess ABG Hemoglobin Oxyhemoglobin Sodium Potassium Chloride 94.8 L Carbon Dioxide 32 H BUN 53 H Creatinine 2.3 H Glucose POC Glucose 163 H 134 H Calcium Phosphorus Magnesium ALT Alkaline Phosphatase Total Creatine Kinase CK-MB (CK-2) Rel Index Troponin T Albumin LDL Cholesterol Direct PTH Intact Salicylates Acetaminophen Crossmatch 03/24/19 03/25/19 03/25/19 23:15 05:52 12:02 WBC RBC Hgb Hct MCH MCHC RDW Lymph % (Auto) [place] % (Auto) Eos % (Auto) Lymph # [place] # Eos # Seg Neutrophils % Seg Neuts % (Manual) Lymphocytes % (Manual) Eosinophils % (Manual) Seg Neutrophils # Lymphocytes # (Manual) Eosinophils # (Manual) PT INR D-Dimer POC ABG pH POC ABG pCO2 POC ABG pO2 ABG pO2 ABG HCO3 ABG Base Excess ABG Hemoglobin Oxyhemoglobin Sodium Potassium Chloride Carbon Dioxide BUN Creatinine Glucose POC Glucose 129 H 123 H 125 H Calcium Phosphorus Magnesium ALT Alkaline Phosphatase Total Creatine Kinase CK-MB (CK-2) Rel Index Troponin T Albumin LDL Cholesterol Direct PTH Intact Salicylates Acetaminophen Crossmatch 03/25/19 03/26/19 03/26/19 17:27 00:30 05:35 WBC RBC 3.01 L Hgb 8.1 L Hct 25.7 L MCH 27 L MCHC RDW 19.2 H Lymph % (Auto) 11.4 L [place] % (Auto) Eos % (Auto) 8.0 H Lymph # 1.0 L [place] # Eos # 0.7 H Seg Neutrophils % 73.9 H Seg Neuts % (Manual) Lymphocytes % (Manual) Eosinophils % (Manual) Seg Neutrophils # Lymphocytes # (Manual) Eosinophils # (Manual) PT INR D-Dimer POC ABG pH POC ABG pCO2 POC ABG pO2 ABG pO2 ABG HCO3 ABG Base Excess ABG Hemoglobin Oxyhemoglobin Sodium Potassium Chloride Carbon Dioxide BUN Creatinine Glucose POC Glucose 130 H 129 H Calcium Phosphorus Magnesium ALT Alkaline Phosphatase Total Creatine Kinase CK-MB (CK-2) Rel Index Troponin T Albumin LDL Cholesterol Direct PTH Intact Salicylates Acetaminophen Crossmatch 03/26/19 03/26/19 03/26/19 05:35 05:45 12:16 WBC RBC Hgb Hct MCH MCHC RDW Lymph % (Auto) [place] % (Auto) Eos % (Auto) Lymph # [place] # Eos # Seg Neutrophils % Seg Neuts % (Manual) Lymphocytes % (Manual) Eosinophils % (Manual) Seg Neutrophils # Lymphocytes # (Manual) Eosinophils # (Manual) PT INR D-Dimer POC ABG pH POC ABG pCO2 POC ABG pO2 ABG pO2 ABG HCO3 ABG Base Excess ABG Hemoglobin Oxyhemoglobin Sodium Potassium Chloride 94.9 L Carbon Dioxide 31 H BUN 44 H Creatinine 2.0 H Glucose POC Glucose 118 H 107 H Calcium Phosphorus Magnesium ALT Alkaline Phosphatase Total Creatine Kinase CK-MB (CK-2) Rel Index Troponin T Albumin LDL Cholesterol Direct PTH Intact Salicylates Acetaminophen Crossmatch 03/26/19 03/27/19 03/27/19 17:56 00:36 05:37 WBC RBC Hgb Hct MCH MCHC RDW Lymph % (Auto) [place] % (Auto) Eos % (Auto) Lymph # [place] # Eos # Seg Neutrophils % Seg Neuts % (Manual) Lymphocytes % (Manual) Eosinophils % (Manual) Seg Neutrophils # Lymphocytes # (Manual) Eosinophils # (Manual) PT INR D-Dimer POC ABG pH POC ABG pCO2 POC ABG pO2 ABG pO2 ABG HCO3 ABG Base Excess ABG Hemoglobin Oxyhemoglobin Sodium Potassium Chloride Carbon Dioxide BUN Creatinine Glucose POC Glucose 107 H 110 H 122 H Calcium Phosphorus Magnesium ALT Alkaline Phosphatase Total Creatine Kinase CK-MB (CK-2) Rel Index Troponin T Albumin LDL Cholesterol Direct PTH Intact Salicylates Acetaminophen Crossmatch 03/27/19 03/27/19 03/28/19 11:22 18:00 05:17 WBC RBC Hgb Hct MCH MCHC RDW Lymph % (Auto) [place] % (Auto) Eos % (Auto) Lymph # [place] # Eos # Seg Neutrophils % Seg Neuts % (Manual) Lymphocytes % (Manual) Eosinophils % (Manual) Seg Neutrophils # Lymphocytes # (Manual) Eosinophils # (Manual) PT INR D-Dimer POC ABG pH POC ABG pCO2 POC ABG pO2 ABG pO2 ABG HCO3 ABG Base Excess ABG Hemoglobin Oxyhemoglobin Sodium Potassium Chloride Carbon Dioxide BUN Creatinine Glucose POC Glucose 120 H 111 H 107 H Calcium Phosphorus Magnesium ALT Alkaline Phosphatase Total Creatine Kinase CK-MB (CK-2) Rel Index Troponin T Albumin LDL Cholesterol Direct PTH Intact Salicylates Acetaminophen Crossmatch 03/28/19 03/28/19 03/29/19 12:27 18:08 05:47 WBC RBC Hgb Hct MCH MCHC RDW Lymph % (Auto) [place] % (Auto) Eos % (Auto) Lymph # [place] # Eos # Seg Neutrophils % Seg Neuts % (Manual) Lymphocytes % (Manual) Eosinophils % (Manual) Seg Neutrophils # Lymphocytes # (Manual) Eosinophils # (Manual) PT INR D-Dimer POC ABG pH POC ABG pCO2 POC ABG pO2 ABG pO2 ABG HCO3 ABG Base Excess ABG Hemoglobin Oxyhemoglobin Sodium Potassium Chloride Carbon Dioxide BUN Creatinine Glucose POC Glucose 114 H 121 H 112 H Calcium Phosphorus Magnesium ALT Alkaline Phosphatase Total Creatine Kinase CK-MB (CK-2) Rel Index Troponin T Albumin LDL Cholesterol Direct PTH Intact Salicylates Acetaminophen Crossmatch 03/29/19 03/29/19 03/30/19 12:14 18:08 00:31 WBC RBC Hgb Hct MCH MCHC RDW Lymph % (Auto) [place] % (Auto) Eos % (Auto) Lymph # [place] # Eos # Seg Neutrophils % Seg Neuts % (Manual) Lymphocytes % (Manual) Eosinophils % (Manual) Seg Neutrophils # Lymphocytes # (Manual) Eosinophils # (Manual) PT INR D-Dimer POC ABG pH POC ABG pCO2 POC ABG pO2 ABG pO2 ABG HCO3 ABG Base Excess ABG Hemoglobin Oxyhemoglobin Sodium Potassium Chloride Carbon Dioxide BUN Creatinine Glucose POC Glucose 117 H 140 H 114 H Calcium Phosphorus Magnesium ALT Alkaline Phosphatase Total Creatine Kinase CK-MB (CK-2) Rel Index Troponin T Albumin LDL Cholesterol Direct PTH Intact Salicylates Acetaminophen Crossmatch 03/30/19 03/30/19 03/30/19 10:13 10:13 23:53 WBC RBC 2.81 L Hgb 7.7 L Hct 24.3 L MCH 27 L MCHC RDW 19.0 H Lymph % (Auto) 12.2 L [place] % (Auto) Eos % (Auto) 7.9 H Lymph # 1.0 L [place] # Eos # 0.6 H Seg Neutrophils % 72.3 H Seg Neuts % (Manual) Lymphocytes % (Manual) Eosinophils % (Manual) Seg Neutrophils # Lymphocytes # (Manual) Eosinophils # (Manual) PT INR D-Dimer POC ABG pH POC ABG pCO2 POC ABG pO2 ABG pO2 ABG HCO3 ABG Base Excess ABG Hemoglobin Oxyhemoglobin Sodium Potassium 5.1 H Chloride 96.5 L Carbon Dioxide BUN 73 H Creatinine 3.9 H D Glucose POC Glucose 114 H Calcium 10.3 H Phosphorus 6.30 H Magnesium 2.70 H ALT Alkaline Phosphatase 185 H Total Creatine Kinase CK-MB (CK-2) Rel Index Troponin T Albumin 2.6 L LDL Cholesterol Direct PTH Intact Salicylates Acetaminophen Crossmatch 03/31/19 03/31/19 03/31/19 05:45 10:26 10:26 WBC RBC 3.01 L Hgb 8.2 L Hct 26.4 L MCH 27 L MCHC 31 L RDW 20.3 H Lymph % (Auto) 13.3 L [place] % (Auto) Eos % (Auto) 7.2 H Lymph # 1.1 L [place] # Eos # 0.6 H Seg Neutrophils % 72.1 H Seg Neuts % (Manual) Lymphocytes % (Manual) Eosinophils % (Manual) Seg Neutrophils # Lymphocytes # (Manual) Eosinophils # (Manual) PT INR D-Dimer POC ABG pH POC ABG pCO2 POC ABG pO2 ABG pO2 ABG HCO3 ABG Base Excess ABG Hemoglobin Oxyhemoglobin Sodium Potassium Chloride 96.9 L Carbon Dioxide 33 H BUN 37 H Creatinine 2.4 H Glucose POC Glucose 108 H Calcium 10.3 H Phosphorus Magnesium ALT Alkaline Phosphatase Total Creatine Kinase CK-MB (CK-2) Rel Index Troponin T Albumin LDL Cholesterol Direct PTH Intact Salicylates Acetaminophen Crossmatch 03/31/19 04/01/19 04/01/19 12:38 05:48 12:06 WBC RBC Hgb Hct MCH MCHC RDW Lymph % (Auto) [place] % (Auto) Eos % (Auto) Lymph # [place] # Eos # Seg Neutrophils % Seg Neuts % (Manual) Lymphocytes % (Manual) Eosinophils % (Manual) Seg Neutrophils # Lymphocytes # (Manual) Eosinophils # (Manual) PT INR D-Dimer POC ABG pH POC ABG pCO2 POC ABG pO2 ABG pO2 ABG HCO3 ABG Base Excess ABG Hemoglobin Oxyhemoglobin Sodium Potassium Chloride Carbon Dioxide BUN Creatinine Glucose POC Glucose 108 H 114 H 111 H Calcium Phosphorus Magnesium ALT Alkaline Phosphatase Total Creatine Kinase CK-MB (CK-2) Rel Index Troponin T Albumin LDL Cholesterol Direct PTH Intact Salicylates Acetaminophen Crossmatch 04/01/19 04/02/19 04/04/19 18:24 00:36 23:55 WBC RBC Hgb Hct MCH MCHC RDW Lymph % (Auto) [place] % (Auto) Eos % (Auto) Lymph # [place] # Eos # Seg Neutrophils % Seg Neuts % (Manual) Lymphocytes % (Manual) Eosinophils % (Manual) Seg Neutrophils # Lymphocytes # (Manual) Eosinophils # (Manual) PT INR D-Dimer POC ABG pH POC ABG pCO2 POC ABG pO2 ABG pO2 ABG HCO3 ABG Base Excess ABG Hemoglobin Oxyhemoglobin Sodium Potassium Chloride Carbon Dioxide BUN Creatinine Glucose POC Glucose 113 H 117 H 109 H Calcium Phosphorus Magnesium ALT Alkaline Phosphatase Total Creatine Kinase CK-MB (CK-2) Rel Index Troponin T Albumin LDL Cholesterol Direct PTH Intact Salicylates Acetaminophen Crossmatch 04/06/19 04/06/19 04/06/19 00:11 06:02 23:30 WBC RBC Hgb Hct MCH MCHC RDW Lymph % (Auto) [place] % (Auto) Eos % (Auto) Lymph # [place] # Eos # Seg Neutrophils % Seg Neuts % (Manual) Lymphocytes % (Manual) Eosinophils % (Manual) Seg Neutrophils # Lymphocytes # (Manual) Eosinophils # (Manual) PT INR D-Dimer POC ABG pH POC ABG pCO2 POC ABG pO2 ABG pO2 ABG HCO3 ABG Base Excess ABG Hemoglobin Oxyhemoglobin Sodium Potassium Chloride Carbon Dioxide BUN Creatinine Glucose POC Glucose 116 H 112 H 112 H Calcium Phosphorus Magnesium ALT Alkaline Phosphatase Total Creatine Kinase CK-MB (CK-2) Rel Index Troponin T Albumin LDL Cholesterol Direct PTH Intact Salicylates Acetaminophen Crossmatch 04/08/19 04/08/19 04/08/19 02:23 06:19 13:01 WBC RBC Hgb Hct MCH MCHC RDW Lymph % (Auto) [place] % (Auto) Eos % (Auto) Lymph # [place] # Eos # Seg Neutrophils % Seg Neuts % (Manual) Lymphocytes % (Manual) Eosinophils % (Manual) Seg Neutrophils # Lymphocytes # (Manual) Eosinophils # (Manual) PT INR D-Dimer POC ABG pH POC ABG pCO2 POC ABG pO2 ABG pO2 ABG HCO3 ABG Base Excess ABG Hemoglobin Oxyhemoglobin Sodium Potassium Chloride Carbon Dioxide BUN Creatinine Glucose POC Glucose 144 H 126 H 118 H Calcium Phosphorus Magnesium ALT Alkaline Phosphatase Total Creatine Kinase CK-MB (CK-2) Rel Index Troponin T Albumin LDL Cholesterol Direct PTH Intact Salicylates Acetaminophen Crossmatch 04/08/19 04/09/19 04/10/19 23:28 05:52 06:34 WBC RBC Hgb Hct MCH MCHC RDW Lymph % (Auto) [place] % (Auto) Eos % (Auto) Lymph # [place] # Eos # Seg Neutrophils % Seg Neuts % (Manual) Lymphocytes % (Manual) Eosinophils % (Manual) Seg Neutrophils # Lymphocytes # (Manual) Eosinophils # (Manual) PT INR D-Dimer POC ABG pH POC ABG pCO2 POC ABG pO2 ABG pO2 ABG HCO3 ABG Base Excess ABG Hemoglobin Oxyhemoglobin Sodium Potassium Chloride Carbon Dioxide BUN Creatinine Glucose POC Glucose 119 H 116 H 114 H Calcium Phosphorus Magnesium ALT Alkaline Phosphatase Total Creatine Kinase CK-MB (CK-2) Rel Index Troponin T Albumin LDL Cholesterol Direct PTH Intact Salicylates Acetaminophen Crossmatch 04/10/19 04/10/19 04/11/19 12:34 18:59 00:36 WBC RBC Hgb Hct MCH MCHC RDW Lymph % (Auto) [place] % (Auto) Eos % (Auto) Lymph # [place] # Eos # Seg Neutrophils % Seg Neuts % (Manual) Lymphocytes % (Manual) Eosinophils % (Manual) Seg Neutrophils # Lymphocytes # (Manual) Eosinophils # (Manual) PT INR D-Dimer POC ABG pH POC ABG pCO2 POC ABG pO2 ABG pO2 ABG HCO3 ABG Base Excess ABG Hemoglobin Oxyhemoglobin Sodium Potassium Chloride Carbon Dioxide BUN Creatinine Glucose POC Glucose 112 H 109 H 124 H Calcium Phosphorus Magnesium ALT Alkaline Phosphatase Total Creatine Kinase CK-MB (CK-2) Rel Index Troponin T Albumin LDL Cholesterol Direct PTH Intact Salicylates Acetaminophen Crossmatch 04/11/19 04/11/19 04/12/19 08:01 17:25 02:18 WBC RBC Hgb Hct MCH MCHC RDW Lymph % (Auto) [place] % (Auto) Eos % (Auto) Lymph # [place] # Eos # Seg Neutrophils % Seg Neuts % (Manual) Lymphocytes % (Manual) Eosinophils % (Manual) Seg Neutrophils # Lymphocytes # (Manual) Eosinophils # (Manual) PT INR D-Dimer POC ABG pH POC ABG pCO2 POC ABG pO2 ABG pO2 ABG HCO3 ABG Base Excess ABG Hemoglobin Oxyhemoglobin Sodium Potassium Chloride Carbon Dioxide BUN Creatinine Glucose POC Glucose 118 H 106 H 125 H Calcium Phosphorus Magnesium ALT Alkaline Phosphatase Total Creatine Kinase CK-MB (CK-2) Rel Index Troponin T Albumin LDL Cholesterol Direct PTH Intact Salicylates Acetaminophen Crossmatch 04/12/19 04/12/19 04/12/19 06:24 12:22 17:13 WBC RBC Hgb Hct MCH MCHC RDW Lymph % (Auto) [place] % (Auto) Eos % (Auto) Lymph # [place] # Eos # Seg Neutrophils % Seg Neuts % (Manual) Lymphocytes % (Manual) Eosinophils % (Manual) Seg Neutrophils # Lymphocytes # (Manual) Eosinophils # (Manual) PT INR D-Dimer POC ABG pH POC ABG pCO2 POC ABG pO2 ABG pO2 ABG HCO3 ABG Base Excess ABG Hemoglobin Oxyhemoglobin Sodium Potassium Chloride Carbon Dioxide BUN Creatinine Glucose POC Glucose 128 H 114 H 110 H Calcium Phosphorus Magnesium ALT Alkaline Phosphatase Total Creatine Kinase CK-MB (CK-2) Rel Index Troponin T Albumin LDL Cholesterol Direct PTH Intact Salicylates Acetaminophen Crossmatch 04/13/19 04/13/19 04/13/19 06:59 07:31 07:31 WBC RBC 3.34 L Hgb 8.9 L Hct 28.6 L MCH 27 L MCHC 31 L RDW 19.6 H Lymph % (Auto) [place] % (Auto) Eos % (Auto) Lymph # [place] # Eos # Seg Neutrophils % Seg Neuts % (Manual) Lymphocytes % (Manual) Eosinophils % (Manual) Seg Neutrophils # Lymphocytes # (Manual) Eosinophils # (Manual) PT INR D-Dimer POC ABG pH POC ABG pCO2 POC ABG pO2 ABG pO2 ABG HCO3 ABG Base Excess ABG Hemoglobin Oxyhemoglobin Sodium Potassium Chloride 96.4 L Carbon Dioxide 33 H BUN 66 H Creatinine 4.5 H Glucose 103 H POC Glucose 107 H Calcium Phosphorus Magnesium ALT Alkaline Phosphatase Total Creatine Kinase CK-MB (CK-2) Rel Index Troponin T Albumin LDL Cholesterol Direct PTH Intact Salicylates Acetaminophen Crossmatch 04/13/19 04/14/19 04/14/19 23:43 05:50 13:07 WBC RBC Hgb Hct MCH MCHC RDW Lymph % (Auto) [place] % (Auto) Eos % (Auto) Lymph # [place] # Eos # Seg Neutrophils % Seg Neuts % (Manual) Lymphocytes % (Manual) Eosinophils % (Manual) Seg Neutrophils # Lymphocytes # (Manual) Eosinophils # (Manual) PT INR D-Dimer POC ABG pH POC ABG pCO2 POC ABG pO2 ABG pO2 ABG HCO3 ABG Base Excess ABG Hemoglobin Oxyhemoglobin Sodium Potassium Chloride Carbon Dioxide BUN Creatinine Glucose POC Glucose 119 H 112 H 112 H Calcium Phosphorus Magnesium ALT Alkaline Phosphatase Total Creatine Kinase CK-MB (CK-2) Rel Index Troponin T Albumin LDL Cholesterol Direct PTH Intact Salicylates Acetaminophen Crossmatch 04/14/19 04/15/19 04/15/19 18:35 01:18 05:17 WBC RBC Hgb Hct MCH MCHC RDW Lymph % (Auto) [place] % (Auto) Eos % (Auto) Lymph # [place] # Eos # Seg Neutrophils % Seg Neuts % (Manual) Lymphocytes % (Manual) Eosinophils % (Manual) Seg Neutrophils # Lymphocytes # (Manual) Eosinophils # (Manual) PT INR D-Dimer POC ABG pH POC ABG pCO2 POC ABG pO2 ABG pO2 ABG HCO3 ABG Base Excess ABG Hemoglobin Oxyhemoglobin Sodium Potassium Chloride Carbon Dioxide BUN Creatinine Glucose POC Glucose 114 H 114 H 114 H Calcium Phosphorus Magnesium ALT Alkaline Phosphatase Total Creatine Kinase CK-MB (CK-2) Rel Index Troponin T Albumin LDL Cholesterol Direct PTH Intact Salicylates Acetaminophen Crossmatch 04/15/19 04/15/19 04/16/19 11:50 23:39 05:41 WBC RBC Hgb Hct MCH MCHC RDW Lymph % (Auto) [place] % (Auto) Eos % (Auto) Lymph # [place] # Eos # Seg Neutrophils % Seg Neuts % (Manual) Lymphocytes % (Manual) Eosinophils % (Manual) Seg Neutrophils # Lymphocytes # (Manual) Eosinophils # (Manual) PT INR D-Dimer POC ABG pH POC ABG pCO2 POC ABG pO2 ABG pO2 ABG HCO3 ABG Base Excess ABG Hemoglobin Oxyhemoglobin Sodium Potassium Chloride Carbon Dioxide BUN Creatinine Glucose POC Glucose 109 H 115 H 125 H Calcium Phosphorus Magnesium ALT Alkaline Phosphatase Total Creatine Kinase CK-MB (CK-2) Rel Index Troponin T Albumin LDL Cholesterol Direct PTH Intact Salicylates Acetaminophen Crossmatch 04/16/19 04/17/19 04/17/19 12:53 01:00 12:38 WBC RBC Hgb Hct MCH MCHC RDW Lymph % (Auto) [place] % (Auto) Eos % (Auto) Lymph # [place] # Eos # Seg Neutrophils % Seg Neuts % (Manual) Lymphocytes % (Manual) Eosinophils % (Manual) Seg Neutrophils # Lymphocytes # (Manual) Eosinophils # (Manual) PT INR D-Dimer POC ABG pH POC ABG pCO2 POC ABG pO2 ABG pO2 ABG HCO3 ABG Base Excess ABG Hemoglobin Oxyhemoglobin Sodium Potassium Chloride Carbon Dioxide BUN Creatinine Glucose POC Glucose 121 H 127 H 159 H Calcium Phosphorus Magnesium ALT Alkaline Phosphatase Total Creatine Kinase CK-MB (CK-2) Rel Index Troponin T Albumin LDL Cholesterol Direct PTH Intact Salicylates Acetaminophen Crossmatch 04/17/19 04/17/19 04/18/19 18:27 23:36 07:19 WBC RBC 3.49 L Hgb 9.0 L Hct 29.9 L MCH 26 L MCHC 30 L RDW 20.0 H Lymph % (Auto) [place] % (Auto) Eos % (Auto) Lymph # [place] # Eos # Seg Neutrophils % Seg Neuts % (Manual) Lymphocytes % (Manual) Eosinophils % (Manual) Seg Neutrophils # Lymphocytes # (Manual) Eosinophils # (Manual) PT INR D-Dimer POC ABG pH POC ABG pCO2 POC ABG pO2 ABG pO2 ABG HCO3 ABG Base Excess ABG Hemoglobin Oxyhemoglobin Sodium Potassium Chloride Carbon Dioxide BUN Creatinine Glucose POC Glucose 109 H 134 H Calcium Phosphorus Magnesium ALT Alkaline Phosphatase Total Creatine Kinase CK-MB (CK-2) Rel Index Troponin T Albumin LDL Cholesterol Direct PTH Intact Salicylates Acetaminophen Crossmatch 04/18/19 04/18/19 04/18/19 07:19 12:16 17:09 WBC RBC Hgb Hct MCH MCHC RDW Lymph % (Auto) [place] % (Auto) Eos % (Auto) Lymph # [place] # Eos # Seg Neutrophils % Seg Neuts % (Manual) Lymphocytes % (Manual) Eosinophils % (Manual) Seg Neutrophils # Lymphocytes # (Manual) Eosinophils # (Manual) PT INR D-Dimer POC ABG pH POC ABG pCO2 POC ABG pO2 ABG pO2 ABG HCO3 ABG Base Excess ABG Hemoglobin Oxyhemoglobin Sodium Potassium Chloride Carbon Dioxide BUN 41 H Creatinine 2.9 H Glucose 122 H POC Glucose 125 H 131 H Calcium Phosphorus Magnesium ALT Alkaline Phosphatase Total Creatine Kinase CK-MB (CK-2) Rel Index Troponin T Albumin LDL Cholesterol Direct PTH Intact Salicylates Acetaminophen Crossmatch 04/18/19 04/19/19 04/19/19 23:57 05:55 11:35 WBC RBC Hgb Hct MCH MCHC RDW Lymph % (Auto) [place] % (Auto) Eos % (Auto) Lymph # [place] # Eos # Seg Neutrophils % Seg Neuts % (Manual) Lymphocytes % (Manual) Eosinophils % (Manual) Seg Neutrophils # Lymphocytes # (Manual) Eosinophils # (Manual) PT INR D-Dimer POC ABG pH POC ABG pCO2 POC ABG pO2 ABG pO2 ABG HCO3 ABG Base Excess ABG Hemoglobin Oxyhemoglobin Sodium Potassium Chloride Carbon Dioxide BUN Creatinine Glucose POC Glucose 159 H 144 H 177 H Calcium Phosphorus Magnesium ALT Alkaline Phosphatase Total Creatine Kinase CK-MB (CK-2) Rel Index Troponin T Albumin LDL Cholesterol Direct PTH Intact Salicylates Acetaminophen Crossmatch
[2019-04-20] MEDS: INSULIN REGULAR, HUMAN 100 UNITS/1 ML SUB-Q SCH ×5 (02:10→23:57)
[2019-04-20] MEDS: IPRATROPIUM/ALBUTEROL SULFATE 3 ML AMPUL.NEB IH SCH ×3 (08:36→19:31)
--- NOTE | 2019-04-20 08:45 | Progress Note ---
Assessment and Plan Assessment and plan: Patient is a 63-year-old -Surinamese man from [facility] with a plethora of co-morbidities including blindness, CVA, CHF, PPM/ICD, loop recorder since 2012 that is MRI compatible, IDDM type 2, sepsis left foot ulcer, afib, ESRD with complications on HD TTS, hypertension, AOCD and GERD who presented to the ED with hypotensive after intubation in the emergency room. Still intubated, diagnosed with fluid overload, pleural effusion. Patient has had recurrent admission in the hospital for similar reason and was recently discharged from the hospital following treatment of Severe Sepsis due to Necrotizing Unstagable sacral decubitus ulcer with ostemomylitis, expected to complete abx on discharg e till 02/16/19. Trach and peg done HR control improved with change in BB. Acute respiratory failure on mechanical ventilator >96 hrs Trach placed on 03/03/19 Pulm consult appreciated weaning trial VAP BUNDLE ASPIRATION BUNDLE Continue T-piece Finished therapy for Acinetobacter Acute pulmonary edema, fluid overload on CXR repeat xray intermittently Dialysis Necrotizing Unstagable sacral decubitus ulcer with ostemomyelitis Wound care, Dilated CMP Cardiomyiopathy EF 35-40% Continue diuresis PPM/ICD Acute encephalopathy, probably metabolic or toxic Continues on Mechanical ventilator. ESRD on hemodialysis nephrology following Vascular eval. done re: LUE AV graft, see note Bilateral pleural effusions Anticipate improvement with Permanent atrial fibrillation and flutter Not on anticoagulation because of anemia thrombocytopenia Change noted to BB agent to IV. Diabetes mellitus type 2 Fingerstick Q4h NSTEMI type 2 Cardiology following Schizophrenia continue home meds Legally blind supportive care hypertension Monitor BP Hypokalemia resolved Pulmonary hypertension by history Dysphagia s/p PEG tube Severe malnutrition/hypoalbuminemia with FTT: 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, claims account specialist following PEG placed on 01/02/19 Decubitus ulcer s/;p colostomy wound care consult History of sacral osteomyelitis and LE ulcers Completed Antibiotics Place on contact isolation for ESBL Klebsiella pneumonia on wound culture 01/02/19 h/o Peripheral neuropathy: Continue gabapentin Anemia of chronic disease -s/p total of 8 units PRBC, follow cbc- no occult GI bleed noted. -Pt is s/p x1 DDVAP RUL atelectasis, nebs as needed DVT prophylaxis Lovenox DNR poor prognosis Disposition: Awaiting on placement History Interval history: Patient was seen and examined. Follow-up on current diagnosis. No overnight events reported to me. Patient is mainly nonverbal. Imaging, nursing note, chart, labs and old chart reviewed. Hospitalist Physical - Physical exam Narrative exam: Gen: severely disable, nad, awake alert x 1 HEENT: NCAT, EOMI, PERRL, OP Clear Neck: supple, trach CVS/Heart: irreg irregular, normal S1S2, pulses present bilaterally Chest/Lungs: diminished bs ymmetrical chest expansion, good air entry bilaterally GI/Abdomen:peg, colostomy present, good bowel sounds, no guarding or rebound /Bladder: no suprapubic tenderness, no CVA or paraspinal tenderness Extermity/Skin: no c/c/e, no obvious rash MSK: no FROM x 4 Neuro: CN 2-12 grossly intact except vision, no new focal deficits Psych: calm - Constitutional Vitals: Temp Pulse Resp BP Pulse Ox 98.1 F 85 19 116/59 99 04/19/19 23:13 04/20/19 08:00 04/20/19 08:00 04/19/19 23:13 04/20/19 08:37 General appearance: Present: no acute distress, well-nourished Results - Labs CBC & Chem 7: 04/18/19 07:19 04/18/19 07:19 Labs: Laboratory Last Values WBC 9.6 K/mm3 (4.5-11.0) 04/18/19 07:19 RBC 3.49 M/mm3 (3.65-5.03) L 04/18/19 07:19 Hgb 9.0 gm/dl (11.8-15.2) L 04/18/19 07:19 Hct 29.9 % (35.5-45.6) L 04/18/19 07:19 MCV 86 fl (84-94) 04/18/19 07:19 MCH 26 pg (28-32) L 04/18/19 07:19 MCHC 30 % (32-34) L 04/18/19 07:19 RDW 20.0 % (13.2-15.2) H 04/18/19 07:19 Plt Count 286 K/mm3 (140-440) 04/18/19 07:19 Lymph % (Auto) 13.3 % (13.4-35.0) L 03/31/19 10:26 [place] % (Auto) 6.5 % (0.0-7.3) 03/31/19 10: Eos % (Auto) 7.2 % (0.0-4.3) H 03/31/19 10:26 Baso % (Auto) 0.9 % (0.0-1.8) 03/31/19 10: Lymph # 1.1 K/mm3 (1.2-5.4) L 03/31/19 10: [place] # 0.5 K/mm3 (0.0-0.8) 03/31/19 10: Eos # 0.6 K/mm3 (0.0-0.4) H 03/31/19 10: Baso # 0.1 K/mm3 (0.0-0.1) 03/31/19 10: Add Manual Diff Complete 03/21/19 06:30 Total Counted 100 03/21/19 06:30 Seg Neutrophils % 72.1 % (40.0-70.0) H 03/31/19 10:26 Seg Neuts % (Manual) 81.0 % (40.0-70.0) H 03/21/19 06:30 Band Neutrophils % 0 % 03/21/19 06:30 Lymphocytes % (Manual) 8.0 % (13.4-35.0) L 03/21/19 06:30 Reactive Lymphs % (Man) 0 % 03/21/19 06:30 Monocytes % (Manual) 1.0 % (0.0-7.3) 03/21/19 06:30 Eosinophils % (Manual) 8.0 % (0.0-4.3) H 03/21/19 06:30 Basophils % (Manual) 1.0 % (0.0-1.8) 03/21/19 06:30 Metamyelocytes % 1.0 % 03/21/19 06:30 Myelocytes % 0 % 03/21/19 06:30 Promyelocytes % 0 % 03/21/19 06:30 Blast Cells % 0 % 03/21/19 06:30 Nucleated RBC % Not Reportable 03/21/19 06:30 Seg Neutrophils # 6.0 K/mm3 (1.8-7.7) 03/31/19 10:26 Seg Neutrophils # Man 6.7 K/mm3 (1.8-7.7) 03/21/19 06:30 Band Neutrophils # 0.0 K/mm3 03/21/19 06:30 Lymphocytes # (Manual) 0.7 K/mm3 (1.2-5.4) L 03/21/19 06:30 Abs React Lymphs (Man) 0.0 K/mm3 03/21/19 06:30 Monocytes # (Manual) 0.1 K/mm3 (0.0-0.8) 03/21/19 06:30 Eosinophils # (Manual) 0.7 K/mm3 (0.0-0.4) H 03/21/19 06:30 Basophils # (Manual) 0.1 K/mm3 (0.0-0.1) 03/21/19 06:30 Metamyelocytes # 0.1 K/mm3 03/21/19 06:30 Myelocytes # 0.0 K/mm3 03/21/19 06:30 Promyelocytes # 0.0 K/mm3 03/21/19 06:30 Blast Cells # 0.0 K/mm3 03/21/19 06:30 WBC Morphology Not Reportable 03/21/19 06:30 Hypersegmented Neuts Not Reportable 03/21/19 06:30 Hyposegmented Neuts Not Reportable 03/21/19 06:30 Hypogranular Neuts Not Reportable 03/21/19 06:30 Smudge Cells Not Reportable 03/21/19 06:30 Toxic Granulation Not Reportable 03/21/19 06:30 Toxic Vacuolation Not Reportable 03/21/19 06:30 Dohle Bodies Not Reportable 03/21/19 06:30 Pelger-Huet Anomaly Not Reportable 03/21/19 06:30 Tramaine Rods Not Reportable 03/21/19 06:30 Platelet Estimate Consistent w auto 03/21/19 06:30 Clumped Platelets Not Reportable 03/21/19 06:30 Plt Clumps, EDTA Not Reportable 03/21/19 06:30 Large Platelets Not Reportable 03/21/19 06:30 Giant Platelets Not Reportable 03/21/19 06:30 Platelet Satelliting Not Reportable 03/21/19 06:30 Plt Morphology Comment Not Reportable 03/21/19 06:30 RBC Morphology Not Reportable 03/21/19 06:30 Dimorphic RBCs Not Reportable 03/21/19 06:30 Polychromasia Not Reportable 03/21/19 06:30 Hypochromasia Few 03/21/19 06:30 Poikilocytosis Few 03/21/19 06:30 Anisocytosis Few 03/21/19 06:30 Microcytosis Not Reportable 03/21/19 06:30 Macrocytosis Not Reportable 03/21/19 06:30 Spherocytes Not Reportable 03/21/19 06:30 Pappenheimer Bodies Not Reportable 03/21/19 06:30 Sickle Cells Not Reportable 03/21/19 06:30 Target Cells 1+ 03/21/19 06:30 Tear Drop Cells Not Reportable 03/21/19 06:30 Ovalocytes Few 03/21/19 06:30 Helmet Cells Not Reportable 03/21/19 06:30 [place] Bodies Not Reportable 03/21/19 06:30 [place] Rings Not Reportable 03/21/19 06:30 [place] Cells Not Reportable 03/21/19 06:30 Bite Cells Not Reportable 03/21/19 06:30 Crenated Cell Not Reportable 03/21/19 06:30 Elliptocytes Not Reportable 03/21/19 06:30 Acanthocytes (Spur) Not Reportable 03/21/19 06:30 Rouleaux Not Reportable 03/21/19 06:30 Hemoglobin C Crystals Not Reportable 03/21/19 06:30 Schistocytes Not Reportable 03/21/19 06:30 Malaria parasites Not Reportable 03/21/19 06:30 Jose Juan Bodies Not Reportable 03/21/19 06:30 Hem Pathologist Commnt No 03/21/19 06:30 PT 16.3 Sec. (12.2-14.9) H 03/01/19 09:39 INR 1.35 (0.87-1.13) H 03/01/19 09:39 APTT 33.7 Sec. (24.2-36.6) 02/21/19 18:30 D-Dimer 2987.82 ng/mlDDU (0-234) H 02/22/19 05:54 POC ABG pH 7.510 (7.35-7.45) H 03/18/19 06:38 ABG pH 7.424 pH Units (7.350-7.450) 03/19/19 04:23 POC ABG pCO2 38.9 (35-45) 03/18/19 06:38 ABG pCO2 48.0 mm Hg 03/19/19 04:23 POC ABG pO2 164 (80-105) H 03/18/19 06:38 ABG pO2 78.3 mm Hg (80.0-90.0) L 03/19/19 04:23 POC ABG HCO3 31.0 (22-26 mml/L) 03/18/19 06:38 ABG HCO3 30.7 mmol/L (20.0-26.0) H 03/19/19 04:23 POC ABG Total CO2 32 (23-27mmol/L) 03/18/19 06:38 POC ABG O2 Sat 100 03/18/19 06:38 ABG O2 Saturation 97.0 % (95.0-99.0) 03/19/19 04:23 ABG O2 Content 7.9 (0.0-44) 03/19/19 04:23 POC ABG Base Excess 8 ((-2) - (+3)mmol/L) 03/18/19 06:38 ABG Base Excess 5.8 mmol/L (-2.0-3.0) H 03/19/19 04:23 ABG Hemoglobin 5.8 gm/dl (14.0-18.0) L 03/19/19 04:23 ABG Carboxyhemoglobin 2.0 % (0.0-5.0) 03/19/19 04:23 ABG Methemoglobin 0.4 % (0.0-1.5) 03/19/19 04:23 Oxyhemoglobin 94.6 % (95.0-99.0) L 03/19/19 04:23 FiO2 35 % 03/19/19 04:23 Sodium 145 mmol/L (137-145) 04/18/19 07:19 Potassium 3.6 mmol/L (3.6-5.0) 04/18/19 07:19 Chloride 99.1 mmol/L (98-107) 04/18/19 07:19 Carbon Dioxide 30 mmol/L (22-30) 04/18/19 07:19 Anion Gap 20 mmol/L 04/18/19 07:19 BUN 41 mg/dL (9-20) H 04/18/19 07:19 Creatinine 2.9 mg/dL (0.8-1.5) H 04/18/19 07:19 Estimated GFR 27 ml/min 04/18/19 07:19 BUN/Creatinine Ratio 14 % 04/18/19 07:19 Glucose 122 mg/dL (75-100) H 04/18/19 07:19 POC Glucose 132 (70-105) H 04/20/19 06:28 Lactic Acid 1.00 mmol/L (0.7-2.0) 02/21/19 20:58 Calcium 10.1 mg/dL (8.4-10.2) 04/18/19 07:19 Phosphorus 4.30 mg/dL (2.5-4.5) D 03/31/19 10:26 Magnesium 2.70 mg/dL (1.7-2.3) H 03/30/19 10:13 Total Bilirubin 0.20 mg/dL (0.1-1.2) 03/30/19 10:13 AST 16 units/L (5-40) 03/30/19 10:13 ALT 11 units/L (7-56) 03/30/19 10:13 Alkaline Phosphatase 185 units/L (35-129) H 03/30/19 10:13 Ammonia 28.0 umol/L (25-60) 02/21/19 20:04 Total Creatine Kinase 64 units/L (55-170) 02/22/19 03:42 CK-MB (CK-2) 3.7 ng/mL (0.0-4.0) 02/22/19 03:42 CK-MB (CK-2) Rel Index 5.7 (0-4) H 02/22/19 03:42 Troponin T 0.193 ng/mL (0.00-0.029) H* 02/22/19 03:42 Total Protein 6.9 g/dL (6.3-8.2) 03/30/19 10:13 Albumin 2.6 g/dL (3.9-5) L 03/30/19 10:13 Albumin/Globulin Ratio 0.6 % 03/30/19 10:13 Triglycerides 51 mg/dL (2-149) 02/21/19 18:30 Cholesterol 82 mg/dL (50-199) 02/21/19 18:30 LDL Cholesterol Direct 36 mg/dL (50-130) L 02/21/19 18:30 HDL Cholesterol 40 mg/dL (40-59) 02/21/19 18:30 Cholesterol/HDL Ratio 2.05 % 02/21/19 18:30 TSH 2.760 mlU/mL (0.270-4.200) 02/21/19 20:04 PTH Intact 267.6 pg/mL (15-65) H 03/02/19 05:15 Salicylates < 0.3 mg/dL (2.8-20.0) L 02/21/19 20:04 Acetaminophen < 5.0 ug/mL (10.0-30.0) L 02/21/19 20:04 Hepatitis A IgM Ab Non-reactive (NonReactive) 03/31/19 22:56 Hep Bs Antigen Non-reactive (Negative) 03/31/19 22:56 Hep B Core IgM Ab Non-reactive (NonReactive) 03/31/19 22:56 Hepatitis C Antibody Non-reactive (NonReactive) 03/31/19 22:56 Blood Type O POSITIVE 03/22/19 08:48 Antibody Screen Negative 03/22/19 08:48 Crossmatch See Detail 03/22/19 08:48 Active Medications - Current Medications Current Medications: Generic Name Dose Route Start Last Admin Trade Name Freq PRN Reason Stop Dose Admin Albuterol/Ipratropium 1 ampul 02/24/19 20:00 04/20/19 08:36 Duoneb *Not For Prn Use* IH 1 ampul TIDRT SANCHEZ Administration Lipase/Protease/Amylase 1 each 04/10/19 15:16 Pancreazkaren Barrientos 10,500 Unit FEEDTUBE PRN PRN For Clogged Feeding Tube Epoetin Solitario 20,000 unit 03/24/19 11:17 04/15/19 15:59 Procrit IV 20,000 unit UMA PRN Administration hemodialysis Famotidine 20 mg 02/23/19 10:00 04/19/19 10:33 Pepcid PO 20 mg DAILY SANCHEZ Administration Hydrophilic Ointment 1 applic 02/21/19 18:24 03/05/19 08:16 Vaseline Lip Therapy TP 1 applic Q2HR PRN Administration Dry Lips Sodium Chloride 100 mls @ 999 mls/hr 02/26/19 09:00 Nacl 0.9% IV UMA PRN Hypotension Insulin Human Regular 0 units 02/26/19 12:00 04/20/19 06:00 Humulin R SUB-Q Not Given Q6HR SANCHEZ Protocol Metoprolol Tartrate 2.5 mg 02/28/19 12:06 03/15/19 05:15 Lopressor IV 2.5 mg Q4HR PRN Administration Tachycardia Multi-Ingred Cream/Lotion/Oil/Oint 1 applic 02/21/19 18:24 04/16/19 14:31 Artificial Tears Ophth Oint OU 1 applic Q4HR PRN Administration Dry Eye(s) Risperidone 1 mg 02/25/19 13:00 04/19/19 10:33 Risperdal PO 1 mg DAILY SANCHEZ Administration Sertraline HCl 100 mg 02/25/19 13:00 04/19/19 10:33 Zoloft PO 100 mg DAILY SANCHEZ Administration Simple Syrup 15 ml 04/10/19 15:16 Simple Syrup FEEDTUBE PRN PRN Hypoglycemia Simple Syrup 30 ml 04/10/19 15:16 Simple Syrup FEEDTUBE PRN PRN Hypoglycemia Sodium Bicarbonate 325 mg 04/10/19 15:16 Sodium Bicarbonate FEEDTUBE PRN PRN For Clogged Feeding Tube Sodium Hypochlorite 1 applic 04/01/19 13:00 04/19/19 23:00 Dakin's Half Strength TP 0.25 applicatio BID SANCHEZ Administration Nutrition/Malnutrition Assess - Dietary Evaluation Nutrition/Malnutrition Findings: Nutrition Notes Start: 02/22/19 12:51 Freq: Status: Active Protocol: Document 04/17/19 09:45 KS (Rec: 04/17/19 11:00 KS [id number]) Co-Sign 04/17/19 09:45 LM Nutrition Notes Initial or Follow up Reassessment Current Diagnosis Diabetes,Hypertension Other Pertinent Diagnosis Sacral PU, ESRD on HD (T/Thurs /Sat), Schizophrenia,Blind in L eye,S/P trach Current Diet Nepro at 50 ml/hr w/Abhilash BID Labs/Tests POC Glu - 127 Pertinent Medications Reviewed Height 5 ft 10 in Weight 78.2 kg [place] Body Weight (kg) 75.45 BMI 24.7 Subjective/Other Information Observed Nepro infusing at 50 ml/hr. RN states Abhilash not being given to pt. RN informed of reason for Abhilash. Percent of energy/protein needs met: 92%/100% Burn Absent Trauma Absent Minimum of two criteria No #2 Nutrition Diagnosis Increased nutrient needs ( specify in comment below) Diagnosis Progress(for reassessment Continues documentation) #1 Nutrition Diagnosis Inadequate oral intake Diagnosis Progress(for reassessment Continues documentation) Is patient on ventilator? No Is Patient Ambulatory and/or Out of Bed No REE-([facility]-confined to bed) 1899.108 Kcal/Kg value to use for calculation 30 Approximate Energy Requirements Using 2346 kcal/Kg Calculation Used for Recommendations Kcal/kg Additional Notes Protein Needs: 90-112g (1.2-1. 5g/kg) Fluid Needs: 1-1.5 L/day Nutrition Intervention Change Diet Order: Continue TF Nutrition Support: Nepro with Carbsteady 1.8 at 50 ml/hr Flush 200 ml q4hr Kcal 2,160 Protein (gm) 97 Fluid (mL) 872 Add Supplement/Snack (indicate name/kcal Abhilash BID /protein ) Provides kCal: 190 Provides Protein (gm) 5 Goal #1 TF tolerance Goal #2 Continue to meet at least 75% of calorie and protein needs via TF Anticipated Discharge Needs: TF Follow-Up By: 04/24/19 Additional Comments Follow for TF tolerance, Pt receiving Abhilash
[2019-04-20] MEDS: SERTRALINE 100 MG TAB PO SCH (09:04)
[2019-04-20] MEDS: FAMOTIDINE 20 MG TAB PO SCH (09:04)
[2019-04-20] MEDS: risperiDONE 1 MG TAB PO SCH (09:04)
[2019-04-20] MEDS: SODIUM HYPOCHLORITE, DAKIN'S 1/2 STRENGTH (0.25%) 473 ML TOPICAL SOLN TP SCH ×2 (09:05→21:48)
--- NOTE | 2019-04-20 09:12 | Progress Note ---
Assessment and Plan - Patient Problems (1) ESRD (end stage renal disease) on dialysis Current Visit: Yes Status: Chronic Plan to address problem: End stage renal disease : - access: Left arm AVG Continue hemodialysis Saturday Will repeat HD today. (2) Diabetes mellitus, insulin dependent (IDDM), uncontrolled Current Visit: No Status: Acute Plan to address problem: DM type II uncontrolled Monitor Fingersticks (3) Anemia in chronic kidney disease, on chronic dialysis Current Visit: Yes Status: Acute Plan to address problem: Anemia of chronic kidney disease hemoglobin 9.0g/dl We'll give Epogen Monitor CBC (4) Hypertension Current Visit: Yes Status: Acute Qualifiers: Hypertension type: essential hypertension Qualified Code(s): I10 - Essential (primary) hypertension Plan to address problem: Hypertension controlled currently on Prn antihypertensives. Monitor blood pressure (5) Acute hypoxemic respiratory failure Current Visit: Yes Status: Acute Plan to address problem: Patient has tracheostomy with Tpiece in place. Chest x-ray reviewed with patchy opacities upper lung lynn Cultures obtained with Acinetobacter completed treatment with antibiotics. Ultrafiltration limited by hypotension repeat CXR today. Subjective Principal diagnosis: Respiratory failure, acute on chronic systolic HF, ESRD Interval history: 63 year old Gentleman with medical history significant for ESRD on hemodialysis at [facility] on Saturday, Saturday and Saturday. via a left arm AVG admitted with acute respiratory failure; and hypotension prolonged hospital course received antibiotics for acinetobacter infection and s/p prolonged need for ventilation requiring Tracheostomy with T piece attached. Objective - Vital Signs Vital signs: Vital Signs - 12hr 04/19/19 04/19/19 04/20/19 23:13 23:48 04:45 Temperature 98.1 F 98.0 F Pulse Rate 87 82 Pulse Rate [ Posterior Bilateral Throughout] Respiratory 18 18 Rate Respiratory Rate [Posterior Bilateral Throughout] Blood Pressure 116/59 98/57 O2 Sat by Pulse 86 94 Oximetry O2 Sat by Pulse 100 Oximetry [ Assessment] 04/20/19 04/20/19 04/20/19 08:00 08:37 08:42 Temperature 98.5 F Pulse Rate 85 Pulse Rate [ 85 Posterior Bilateral Throughout] Respiratory 18 Rate Respiratory 19 Rate [Posterior Bilateral Throughout] Blood Pressure 110/57 O2 Sat by Pulse 99 96 Oximetry O2 Sat by Pulse 99 Oximetry [ Assessment] - General Appearance General appearance: cachectic, chronically ill, frail EENT: mucous membranes dry, other (legally blind ) Neck: no JVD Respiratory: Present: Decreased Breath Sounds Cardiology: normal heart rate, S1S2 Gastrointestinal: normal, normoactive bowel sounds Integumentary: no rash Neurologic: alert and oriented x3, CN 3-12 intact Psychiatric: mood/affect appropriate - Lab 04/18/19 07:19 04/18/19 07:19 Most recent lab results ABG pH 7.424 pH Units (7.350-7.450) 03/19/19 04:23 ABG pCO2 48.0 mm Hg 03/19/19 04:23 ABG pO2 78.3 mm Hg (80.0-90.0) L 03/19/19 04:23 ABG HCO3 30.7 mmol/L (20.0-26.0) H 03/19/19 04:23 ABG O2 Saturation 97.0 % (95.0-99.0) 03/19/19 04:23 Calcium 10.1 mg/dL (8.4-10.2) 04/18/19 07:19 Phosphorus 4.30 mg/dL (2.5-4.5) D 03/31/19 10:26 Magnesium 2.70 mg/dL (1.7-2.3) H 03/30/19 10:13 - Imaging Chest x-ray: image reviewed (I reviewed CXR with hazy opacities noted bilateral lung lynn. ) Medications & Allergies - Medications Allergies/Adverse Reactions: Allergies haloperidol [From Haldol] Adverse Reaction (Verified 03/13/18 12:10) Unknown haloperidol lactate [From Haldol] Adverse Reaction (Verified 03/13/18 12:10) Unknown Home Medications: Home Medications Medication Instructions Recorded Confirmed Last Taken Type risperiDONE [RisperDAL] 1 mg PO QAM 03/13/18 02/21/19 Unknown History Sertraline [Zoloft] 100 mg PO QDAY 08/26/18 02/21/19 Unknown History Polyethylene Glycol 3350 [Miralax 17 gm PO QDAY #30 packet 11/05/18 02/21/19 Unknown Rx 3350] Aspirin EC [Halfprin EC] 81 mg PO DAILY #30 11/19/18 02/21/19 Unknown Rx Docusate Sodium [Colace CAP] 100 mg PO BID #60 11/19/18 02/21/19 Unknown Rx Folic Acid [Folvite] 1 mg PO DAILY #30 tab 11/19/18 02/21/19 Unknown Rx Famotidine [Pepcid] 20 mg PO DAILY tablet 12/08/18 02/21/19 Unknown Rx Gabapentin [Neurontin] 100 mg PO QHS capsule 12/08/18 02/21/19 Unknown Rx Metoprolol [Lopressor TAB] 50 mg PO BID 30 Days tablet 12/08/18 02/21/19 Unknown Rx Sevelamer Carbonate [Renvela] 800 mg PO TIDWM tablet 12/08/18 02/21/19 Unknown Rx hydrALAZINE [Apresoline TAB] 100 mg PO Q8HR #120 tablet 12/08/18 02/21/19 Unk nown Rx Acetaminophen [Acetaminophen TAB] 650 mg PO Q12H PRN 12/15/18 02/21/19 Unknown History Glucagon,Human Recombinant 1 mg IJ Q15MIN PRN 12/15/18 02/21/19 Unknown History [Glucagon Emergency Kit] Insulin Aspart [NovoLOG 100 See Protocol SQ QWEEK 12/15/18 02/21/19 Unknown History UNITS/ML VIAL] Active Medications: Generic Name Dose Route Start Last Admin Trade Name Freq PRN Reason Stop Dose Admin Albuterol/Ipratropium 1 ampul 02/24/19 20:00 04/20/19 08:36 Duoneb *Not For Prn Use* IH 1 ampul TIDRT SANCHEZ Administration Lipase/Protease/Amylase 1 each 04/10/19 15:16 Pancrejewel Barrientos 10,500 Unit FEEDTUBE PRN PRN For Clogged Feeding Tube Epoetin Solitario 20,000 unit 03/24/19 11:17 04/15/19 15:59 Procrit IV 20,000 unit UMA PRN Administration hemodialysis Famotidine 20 mg 02/23/19 10:00 04/20/19 09:04 Pepcid PO 20 mg DAILY SANCHEZ Administration Hydrophilic Ointment 1 applic 02/21/19 18:24 03/05/19 08:16 Vaseline Lip Therapy TP 1 applic Q2HR PRN Administration Dry Lips Sodium Chloride 100 mls @ 999 mls/hr 02/26/19 09:00 Nacl 0.9% IV UMA PRN Hypotension Insulin Human Regular 0 units 02/26/19 12:00 09/30/19 06:00 Humulin R SUB-Q Not Given Q6HR [facility] Protocol Metoprolol Tartrate 2.5 mg 02/28/19 12:06 03/15/19 05:15 Lopressor IV 2.5 mg Q4HR PRN Administration Tachycardia Multi-Ingred Cream/Lotion/Oil/Oint 1 applic 02/21/19 18:24 04/16/19 14:31 Artificial Tears Ophth Oint OU 1 applic Q4HR PRN Administration Dry Eye(s) Risperidone 1 mg 02/25/19 13:00 04/20/19 09:04 Risperdal PO 1 mg DAILY SANCHEZ Administration Sertraline HCl 100 mg 02/25/19 13:00 04/20/19 09:04 Zoloft PO 100 mg DAILY SANCHEZ Administration Simple Syrup 15 ml 04/10/19 15:16 Simple Syrup FEEDTUBE PRN PRN Hypoglycemia Simple Syrup 30 ml 04/10/19 15:16 Simple Syrup FEEDTUBE PRN PRN Hypoglycemia Sodium Bicarbonate 325 mg 04/10/19 15:16 Sodium Bicarbonate FEEDTUBE PRN PRN For Clogged Feeding Tube Sodium Hypochlorite 1 applic 04/01/19 13:00 04/20/19 09:05 Dakin's Half Strength TP 1 applicatio BID SANCHEZ Administration
--- NOTE | 2019-04-20 09:57 | XRay Report ---
CHEST 1 VIEW INDICATION: acute respiratory failure.. Follow up. COMPARISON: 03/25/2019 FINDINGS: Support devices: A tracheostomy tube is in satisfactory position. A left central venous catheter tip is at the cavoatrial junction and is unchanged. Heart: Stable cardiomegaly. Pulmonary vasculature: More distinct pulmonary vessels and decreased central vascular congestion. Lungs/Pleura: Interval improvement with decreased bilateral multilobar airspace disease. Minimal resi dual left upper lobe patchy opacity. Additional findings: None. IMPRESSION: Interval improvement with near complete resolution of multilobar airspace disease. Signer Name: Josse Dao MD Signed: 04/20/2019 9:52 AM Workstation Name: [id number]
[2019-04-20] MEDS: EPOETIN ALFA 20,000 UNIT/1 ML INJ IV PRN (14:00)
--- NOTE | 2019-04-20 16:15 | Progress Note ---
Assessment and Plan Imp: 1. Acute encephalopathy, probably metabolic or toxic, resolved 2. A/C systolic CHF 3. Dilated CMP 4. Pulm HTN 5. ESRD 6. RUL atelectasis, probably mucous plugging -> resolved 7. KEON pneumonia, resolved Rec: 1. Chest PT, Duonebs 2. Tolerating Tpiece; monitor; trach is permanent 3. Avoid sedatives; resumed psych meds 4. DVT and GI PPx 5. TFs per PEG 6. HD per renal 7. Agree w/ DNR as per family wishes Await placement No family present Subjective Date of service: 04/20/19 Principal diagnosis: Respiratory failure, acute on chronic systolic HF, ESRD Interval history: No events. Mentation near usual poor baseline. Does response to basic questions but cannot give hx. On 28% per Tpiece. On HD. Active Medications Albuterol/Ipratropium (Duoneb *Not For Prn Use*) 1 ampul IH TIDRT [facility] Last Admin: 04/20/19 13:36 Dose: 1 ampul Documented by: Lipase/Protease/Amylase ([place] 10,500 Unit) 1 each FEEDTUBE PRN PRN PRN Reason: For Clogged Feeding Tube Epoetin Solitario (Procrit) 20,000 unit IV UMA PRN PRN Reason: hemodialysis Last Admin: 04/15/19 15:59 Dose: 20,000 unit Documented by: Famotidine (Pepcid) 20 mg PO DAILY [facility] Last Admin: 04/20/19 09:04 Dose: 20 mg Documented by: Hydrophilic Ointment (Vaseline Lip Therapy) 1 applic TP Q2HR PRN PRN Reason: Dry Lips Last Admin: 03/05/19 08:16 Dose: 1 applic Documented by: Sodium Chloride (Nacl 0.9%) 100 mls @ 999 mls/hr IV UMA PRN PRN Reason: Hypotension Insulin Human Regular (Humulin R) 0 units SUB-Q Q6HR [facility]; Protocol Last Admin: 04/20/19 15:46 Dose: Not Given Documented by: Metoprolol Tartrate (Lopressor) 2.5 mg IV Q4HR PRN PRN Reason: Tachycardia Last Admin: 03/15/19 05:15 Dose: 2.5 mg Documented by: Multi-Ingred Cream/Lotion/Oil/Oint (Artificial Tears Ophth Oint) 1 applic OU Q4HR PRN PRN Reason: Dry Eye(s) Last Admin: 04/16/19 14:31 Dose: 1 applic Documented by: Risperidone (Risperdal) 1 mg PO DAILY [facility] Last Admin: 04/20/19 09:04 Dose: 1 mg Documented by: Sertraline HCl (Zoloft) 100 mg PO DAILY [facility] Last Admin: 04/20/19 09:04 Dose: 100 mg Documented by: Simple Syrup (Simple Syrup) 15 ml FEEDTUBE PRN PRN PRN Reason: Hypoglycemia Simple Syrup (Simple Syrup) 30 ml FEEDTUBE PRN PRN PRN Reason: Hypoglycemia Sodium Bicarbonate (Sodium Bicarbonate) 325 mg FEEDTUBE PRN PRN PRN Reason: For Clogged Feeding Tube Sodium Hypochlorite (Dakin's Half Strength) 1 applic TP BID [facility] Last Admin: 04/20/19 09:05 Dose: 1 applicatio Documented by: Objective Vital Signs - 12hr 04/20/19 04/20/19 04/20/19 04:45 08:00 08:37 Temperature 98.0 F Pulse Rate 82 Pulse Rate [ Apical] Pulse Rate [ Left Dorsalis Pedis] Pulse Rate [ Left Radial] Pulse Rate [ 85 Posterior Bilateral Throughout] Pulse Rate [ Right Dorsalis Pedis] Pulse Rate [ Right Radial] Respiratory 18 Rate Respiratory 19 Rate [Posterior Bilateral Throughout] Blood Pressure 98/57 O2 Sat by Pulse 94 99 Oximetry O2 Sat by Pulse 99 Oximetry [ Assessment] 04/20/19 04/20/19 04/20/19 08:42 10:00 10:30 Temperature 98.5 F 98.2 F Pulse Rate 85 84 86 Pulse Rate [ 95 H Apical] Pulse Rate [ 95 H Left Dorsalis Pedis] Pulse Rate [ 95 H Left Radial] Pulse Rate [ Posterior Bilateral Throughout] Pulse Rate [ 95 H Right Dorsalis Pedis] Pulse Rate [ 95 H Right Radial] Respiratory 18 21 20 Rate Respiratory Rate [Posterior Bilateral Throughout] Blood Pressure 110/57 137/70 O2 Sat by Pulse 96 98 Oximetry O2 Sat by Pulse Oximetry [ Assessment] 04/20/19 04/20/19 04/20/19 10:45 11:00 11:15 Temperature Pulse Rate 87 94 H 97 H Pulse Rate [ Apical] Pulse Rate [ Left Dorsalis Pedis] Pulse Rate [ Left Radial] Pulse Rate [ Posterior Bilateral Throughout] Pulse Rate [ Right Dorsalis Pedis] Pulse Rate [ Right Radial] Respiratory Rate Respiratory Rate [Posterior Bilateral Throughout] Blood Pressure 134/71 124/68 134/60 O2 Sat by Pulse Oximetry O2 Sat by Pulse Oximetry [ Assessment] 04/20/19 04/20/19 04/20/19 11:30 11:45 12:00 Temperature Pulse Rate 95 H 93 H 97 H Pulse Rate [ Apical] Pulse Rate [ Left Dorsalis Pedis] Pulse Rate [ Left Radial] Pulse Rate [ Posterior Bilateral Throughout] Pulse Rate [ Right Dorsalis Pedis] Pulse Rate [ Right Radial] Respiratory Rate Respiratory Rate [Posterior Bilateral Throughout] Blood Pressure 120/65 109/42 122/53 O2 Sat by Pulse Oximetry O2 Sat by Pulse Oximetry [ Assessment] 04/20/19 04/20/19 04/20/19 12:15 12:30 12:45 Temperature Pulse Rate 93 H 98 H 89 Pulse Rate [ Apical] Pulse Rate [ Left Dorsalis Pedis] Pulse Rate [ Left Radial] Pulse Rate [ Posterior Bilateral Throughout] Pulse Rate [ Right Dorsalis Pedis] Pulse Rate [ Right Radial] Respiratory Rate Respiratory Rate [Posterior Bilateral Throughout] Blood Pressure 126/55 117/55 125/54 O2 Sat by Pulse Oximetry O2 Sat by Pulse Oximetry [ Assessment] 04/20/19 04/20/19 04/20/19 13:00 13:36 14:00 Temperature Pulse Rate 77 98 H Pulse Rate [ Apical] Pulse Rate [ Left Dorsalis Pedis] Pulse Rate [ Left Radial] Pulse Rate [ 87 Posterior Bilateral Throughout] Pulse Rate [ Right Dorsalis Pedis] Pulse Rate [ Right Radial] Respiratory Rate Respiratory 20 Rate [Posterior Bilateral Throughout] Blood Pressure 112/55 114/58 O2 Sat by Pulse Oximetry O2 Sat by Pulse Oximetry [ Assessment] Constitutional: no acute distress, alert Eyes: non-icteric ENT: oropharynx moist Neck: supple Effort: normal Ascultation: Bilateral: diminished breath sounds Percussion: Bilateral: not dull Cardiovascular: regular rate and rhythm (no mrg) Gastrointestinal: normoactive bowel sounds, soft, non-tender, non-distended, other (ostomy in place, brown stool) Extremities: no cyanosis, no edema, pink and warm Neurologic: other (mild weakness LUE, o/w nonfocal) Psychiatric: other (unable to assess) CBC and BMP: 04/18/19 07:19 04/18/19 07:19 ABG, PT/INR, D-dimer: ABG POC ABG pH 7.510 (7.35-7.45) H 03/18/19 06:38 ABG pH 7.424 pH Units (7.350-7.450) 03/19/19 04:23 POC ABG pCO2 38.9 (35-45) 03/18/19 06:38 ABG pCO2 48.0 mm Hg 03/19/19 04:23 POC ABG pO2 164 (80-105) H 03/18/19 06:38 ABG pO2 78.3 mm Hg (80.0-90.0) L 03/19/19 04:23 POC ABG HCO3 31.0 (22-26 mml/L) 03/18/19 06:38 POC ABG Total CO2 32 (23-27mmol/L) 03/18/19 06:38 POC ABG O2 Sat 100 03/18/19 06:38 ABG O2 Saturation 97.0 % (95.0-99.0) 03/19/19 04:23 PT/INR, D-dimer PT 16.3 Sec. (12.2-14.9) H 03/01/19 09:39 INR 1.35 (0.87-1.13) H 03/01/19 09:39 D-Dimer 2987.82 ng/mlDDU (0-234) H 02/22/19 05:54 Abnormal lab findings: Abnormal Labs 02/21/19 02/21/19 02/21/19 18:30 18:30 18:30 WBC RBC 3.26 L Hgb 8.8 L Hct 29.0 L MCH 27 L MCHC 30 L RDW 19.1 H Lymph % (Auto) 6.1 L [place] % (Auto) Eos % (Auto) Lymph # 0.4 L [place] # Eos # Seg Neutrophils % 86.2 H Seg Neuts % (Manual) Lymphocytes % (Manual) Eosinophils % (Manual) Seg Neutrophils # Lymphocytes # (Manual) Eosinophils # (Manual) PT INR D-Dimer POC ABG pH POC ABG pCO2 POC ABG pO2 ABG pO2 ABG HCO3 ABG Base Excess ABG Hemoglobin Oxyhemoglobin Sodium 133 L Potassium 3.3 L Chloride 93.1 L Carbon Dioxide 33 H BUN Creatinine Glucose 161 H POC Glucose Calcium Phosphorus Magnesium ALT Alkaline Phosphatase 136 H Total Creatine Kinase 37 L CK-MB (CK-2) Rel Index Troponin T 0.192 H* Albumin 2.4 L LDL Cholesterol Direct 36 L PTH Intact Salicylates Acetaminophen Crossmatch 02/21/19 02/21/19 02/21/19 18:42 20:04 20:04 WBC RBC Hgb Hct MCH MCHC RDW Lymph % (Auto) [place] % (Auto) Eos % (Auto) Lymph # [place] # Eos # Seg Neutrophils % Seg Neuts % (Manual) Lymphocytes % (Manual) Eosinophils % (Manual) Seg Neutrophils # Lymphocytes # (Manual) Eosinophils # (Manual) PT INR D-Dimer POC ABG pH POC ABG pCO2 56.7 H POC ABG pO2 291 H ABG pO2 ABG HCO3 ABG Base Excess ABG Hemoglobin Oxyhemoglobin Sodium Potassium Chloride Carbon Dioxide BUN Creatinine Glucose POC Glucose Calcium Phosphorus Magnesium ALT Alkaline Phosphatase Total Creatine Kinase CK-MB (CK-2) Rel Index Troponin T Albumin LDL Cholesterol Direct PTH Intact Salicylates < 0.3 L Acetaminophen < 5.0 L Crossmatch 02/21/19 02/22/19 02/22/19 22:35 03:42 03:42 WBC RBC 3.20 L Hgb 8.8 L Hct 27.6 L MCH MCHC RDW 18.9 H Lymph % (Auto) 7.4 L [place] % (Auto) Eos % (Auto) Lymph # 0.7 L [place] # Eos # Seg Neutrophils % 84.7 H Seg Neuts % (Manual) Lymphocytes % (Manual) Eosinophils % (Manual) Seg Neutrophils # Lymphocytes # (Manual) Eosinophils # (Manual) PT INR D-Dimer POC ABG pH POC ABG pCO2 POC ABG pO2 ABG pO2 ABG HCO3 ABG Base Excess ABG Hemoglobin Oxyhemoglobin Sodium 134 L Potassium 2.6 L* D Chloride Carbon Dioxide BUN Creatinine Glucose POC Glucose Calcium Phosphorus Magnesium ALT Alkaline Phosphatase Total Creatine Kinase CK-MB (CK-2) Rel Index 5.2 H Troponin T 0.202 H* Albumin LDL Cholesterol Direct PTH Intact Salicylates Acetaminophen Crossmatch 02/22/19 02/22/19 02/22/19 03:42 05:54 09:04 WBC RBC Hgb Hct MCH MCHC RDW Lymph % (Auto) [place] % (Auto) Eos % (Auto) Lymph # [place] # Eos # Seg Neutrophils % Seg Neuts % (Manual) Lymphocytes % (Manual) Eosinophils % (Manual) Seg Neutrophils # Lymphocytes # (Manual) Eosinophils # (Manual) PT INR D-Dimer 2987.82 H POC ABG pH 7.451 H POC ABG pCO2 POC ABG pO2 ABG pO2 ABG HCO3 ABG Base Excess ABG Hemoglobin Oxyhemoglobin Sodium Potassium Chloride Carbon Dioxide BUN Creatinine Glucose POC Glucose Calcium Phosphorus Magnesium ALT Alkaline Phosphatase Total Creatine Kinase CK-MB (CK-2) Rel Index 5.7 H Troponin T 0.193 H* Albumin LDL Cholesterol Direct PTH Intact Salicylates Acetaminophen Crossmatch 02/22/19 02/22/19 02/23/19 10:36 23:56 00:52 WBC RBC Hgb Hct MCH MCHC RDW Lymph % (Auto) [place] % (Auto) Eos % (Auto) Lymph # [place] # Eos # Seg Neutrophils % Seg Neuts % (Manual) Lymphocytes % (Manual) Eosinophils % (Manual) Seg Neutrophils # Lymphocytes # (Manual) Eosinophils # (Manual) PT INR D-Dimer POC ABG pH POC ABG pCO2 POC ABG pO2 ABG pO2 ABG HCO3 ABG Base Excess ABG Hemoglobin Oxyhemoglobin Sodium Potassium 3.1 L Chloride Carbon Dioxide BUN Creatinine Glucose POC Glucose 58 L 111 H Calcium Phosphorus Magnesium ALT Alkaline Phosphatase Total Creatine Kinase CK-MB (CK-2) Rel Index Troponin T Albumin LDL Cholesterol Direct PTH Intact Salicylates Acetaminophen Crossmatch 02/23/19 02/23/19 02/23/19 05:00 06:35 14:26 WBC RBC Hgb Hct MCH MCHC RDW Lymph % (Auto) [place] % (Auto) Eos % (Auto) Lymph # [place] # Eos # Seg Neutrophils % Seg Neuts % (Manual) Lymphocytes % (Manual) Eosinophils % (Manual) Seg Neutrophils # Lymphocytes # (Manual) Eosinophils # (Manual) PT INR D-Dimer POC ABG pH POC ABG pCO2 POC ABG pO2 ABG pO2 ABG HCO3 ABG Base Excess ABG Hemoglobin Oxyhemoglobin Sodium 135 L Potassium 3.1 L Chloride Carbon Dioxide BUN 21 H Creatinine 2.0 H Glucose 57 L POC Glucose 64 L 62 L Calcium Phosphorus Magnesium ALT Alkaline Phosphatase Total Creatine Kinase CK-MB (CK-2) Rel Index Troponin T Albumin LDL Cholesterol Direct PTH Intact Salicylates Acetaminophen Crossmatch 08/01/0702/24/19 02/24/19 02:11 04:12 04:55 WBC RBC 2.84 L Hgb 7.8 L Hct 24.5 L MCH MCHC RDW 19.5 H Lymph % (Auto) [place] % (Auto) Eos % (Auto) Lymph # [place] # Eos # Seg Neutrophils % Seg Neuts % (Manual) Lymphocytes % (Manual) Eosinophils % (Manual) Seg Neutrophils # Lymphocytes # (Manual) Eosinophils # (Manual) PT INR D-Dimer POC ABG pH 7.511 H POC ABG pCO2 33.9 L POC ABG pO2 62 L ABG pO2 ABG HCO3 ABG Base Excess ABG Hemoglobin Oxyhemoglobin Sodium Potassium Chloride Carbon Dioxide BUN Creatinine Glucose POC Glucose 69 L Calcium Phosphorus Magnesium ALT Alkaline Phosphatase Total Creatine Kinase CK-MB (CK-2) Rel Index Troponin T Albumin LDL Cholesterol Direct PTH Intact Salicylates Acetaminophen Crossmatch 02/24/19 02/24/19 02/25/19 04:55 05:41 04:45 WBC RBC Hgb Hct MCH MCHC RDW Lymph % (Auto) [place] % (Auto) Eos % (Auto) Lymph # [place] # Eos # Seg Neutrophils % Seg Neuts % (Manual) Lymphocytes % (Manual) Eosinophils % (Manual) Seg Neutrophils # Lymphocytes # (Manual) Eosinophils # (Manual) PT INR D-Dimer POC ABG pH 7.466 H POC ABG pCO2 POC ABG pO2 75 L ABG pO2 ABG HCO3 ABG Base Excess ABG Hemoglobin Oxyhemoglobin Sodium Potassium Chloride Carbon Dioxide BUN Creatinine 1.8 H Glucose 73 L POC Glucose 127 H Calcium Phosphorus Magnesium ALT Alkaline Phosphatase Total Creatine Kinase CK-MB (CK-2) Rel Index Troponin T Albumin LDL Cholesterol Direct PTH Intact Salicylates Acetaminophen Crossmatch 02/25/19 02/25/19 02/26/19 16:34 21:33 03:45 WBC RBC 2.96 L Hgb 8.0 L Hct 25.8 L MCH 27 L MCHC 31 L RDW 20.0 H Lymph % (Auto) [place] % (Auto) Eos % (Auto) Lymph # [place] # Eos # Seg Neutrophils % Seg Neuts % (Manual) Lymphocytes % (Manual) Eosinophils % (Manual) Seg Neutrophils # Lymphocytes # (Manual) Eosinophils # (Manual) PT INR D-Dimer POC ABG pH POC ABG pCO2 POC ABG pO2 ABG pO2 ABG HCO3 ABG Base Excess ABG Hemoglobin Oxyhemoglobin Sodium Potassium Chloride Carbon Dioxide BUN Creatinine Glucose POC Glucose 141 H 106 H Calcium Phosphorus Magnesium ALT Alkaline Phosphatase Total Creatine Kinase CK-MB (CK-2) Rel Index Troponin T Albumin LDL Cholesterol Direct PTH Intact Salicylates Acetaminophen Crossmatch 02/26/19 02/26/19 02/26/19 03:45 04:13 07:53 WBC RBC Hgb Hct MCH MCHC RDW Lymph % (Auto) [place] % (Auto) Eos % (Auto) Lymph # [place] # Eos # Seg Neutrophils % Seg Neuts % (Manual) Lymphocytes % (Manual) Eosinophils % (Manual) Seg Neutrophils # Lymphocytes # (Manual) Eosinophils # (Manual) PT INR D-Dimer POC ABG pH 7.470 H POC ABG pCO2 POC ABG pO2 ABG pO2 ABG HCO3 ABG Base Excess ABG Hemoglobin Oxyhemoglobin Sodium Potassium Chloride Carbon Dioxide BUN Creatinine 1.8 H Glucose POC Glucose 110 H Calcium Phosphorus Magnesium ALT Alkaline Phosphatase Total Creatine Kinase CK-MB (CK-2) Rel Index Troponin T Albumin LDL Cholesterol Direct PTH Intact Salicylates Acetaminophen Crossmatch 02/26/19 02/26/19 02/27/19 11:56 17:43 00:12 WBC RBC Hgb Hct MCH MCHC RDW Lymph % (Auto) [place] % (Auto) Eos % (Auto) Lymph # [place] # Eos # Seg Neutrophils % Seg Neuts % (Manual) Lymphocytes % (Manual) Eosinophils % (Manual) Seg Neutrophils # Lymphocytes # (Manual) Eosinophils # (Manual) PT INR D-Dimer POC ABG pH POC ABG pCO2 POC ABG pO2 ABG pO2 ABG HCO3 ABG Base Excess ABG Hemoglobin Oxyhemoglobin Sodium Potassium Chloride Carbon Dioxide BUN Creatinine Glucose POC Glucose 112 H 127 H 127 H Calcium Phosphorus Magnesium ALT Alkaline Phosphatase Total Creatine Kinase CK-MB (CK-2) Rel Index Troponin T Albumin LDL Cholesterol Direct PTH Intact Salicylates Acetaminophen Crossmatch 02/27/19 02/27/19 02/27/19 04:35 13:15 18:02 WBC RBC Hgb Hct MCH MCHC RDW Lymph % (Auto) [place] % (Auto) Eos % (Auto) Lymph # [place] # Eos # Seg Neutrophils % Seg Neuts % (Manual) Lymphocytes % (Manual) Eosinophils % (Manual) Seg Neutrophils # Lymphocytes # (Manual) Eosinophils # (Manual) PT INR D-Dimer POC ABG pH 7.483 H POC ABG pCO2 POC ABG pO2 61 L ABG pO2 ABG HCO3 ABG Base Excess ABG Hemoglobin Oxyhemoglobin Sodium Potassium Chloride Carbon Dioxide BUN Creatinine Glucose POC Glucose 143 H 106 H Calcium Phosphorus Magnesium ALT Alkaline Phosphatase Total Creatine Kinase CK-MB (CK-2) Rel Index Troponin T Albumin LDL Cholesterol Direct PTH Intact Salicylates Acetaminophen Crossmatch 02/28/19 02/28/19 02/28/19 05:50 11:59 17:52 WBC RBC Hgb Hct MCH MCHC RDW Lymph % (Auto) [place] % (Auto) Eos % (Auto) Lymph # [place] # Eos # Seg Neutrophils % Seg Neuts % (Manual) Lymphocytes % (Manual) Eosinophils % (Manual) Seg Neutrophils # Lymphocytes # (Manual) Eosinophils # (Manual) PT INR D-Dimer POC ABG pH POC ABG pCO2 POC ABG pO2 ABG pO2 ABG HCO3 ABG Base Excess ABG Hemoglobin Oxyhemoglobin Sodium Potassium Chloride Carbon Dioxide BUN Creatinine Glucose POC Glucose 134 H 128 H 142 H Calcium Phosphorus Magnesium ALT Alkaline Phosphatase Total Creatine Kinase CK-MB (CK-2) Rel Index Troponin T Albumin LDL Cholesterol Direct PTH Intact Salicylates Acetaminophen Crossmatch 02/28/19 03/01/19 03/01/19 23:13 05:40 09:39 WBC RBC Hgb Hct MCH MCHC RDW Lymph % (Auto) [place] % (Auto) Eos % (Auto) Lymph # [place] # Eos # Seg Neutrophils % Seg Neuts % (Manual) Lymphocytes % (Manual) Eosinophils % (Manual) Seg Neutrophils # Lymphocytes # (Manual) Eosinophils # (Manual) PT 16.3 H INR 1.35 H D-Dimer POC ABG pH POC ABG pCO2 POC ABG pO2 ABG pO2 ABG HCO3 ABG Base Excess ABG Hemoglobin Oxyhemoglobin Sodium Potassium Chloride Carbon Dioxide BUN Creatinine Glucose POC Glucose 112 H 111 H Calcium Phosphorus Magnesium ALT Alkaline Phosphatase Total Creatine Kinase CK-MB (CK-2) Rel Index Troponin T Albumin LDL Cholesterol Direct PTH Intact Salicylates Acetaminophen Crossmatch 03/01/19 03/01/19 03/01/19 11:56 13:54 17:59 WBC RBC Hgb Hct MCH MCHC RDW Lymph % (Auto) [place] % (Auto) Eos % (Auto) Lymph # [place] # Eos # Seg Neutrophils % Seg Neuts % (Manual) Lymphocytes % (Manual) Eosinophils % (Manual) Seg Neutrophils # Lymphocytes # (Manual) Eosinophils # (Manual) PT INR D-Dimer POC ABG pH POC ABG pCO2 POC ABG pO2 ABG pO2 ABG HCO3 ABG Base Excess ABG Hemoglobin Oxyhemoglobin Sodium Potassium Chloride Carbon Dioxide BUN 33 H Creatinine 2.8 H D Glucose 176 H POC Glucose 199 H 147 H Calcium Phosphorus Magnesium ALT Alkaline Phosphatase Total Creatine Kinase CK-MB (CK-2) Rel Index Troponin T Albumin LDL Cholesterol Direct PTH Intact Salicylates Acetaminophen Crossmatch 03/02/19 03/02/19 03/02/19 05:15 05:15 05:15 WBC RBC 2.73 L Hgb 7.4 L Hct 23.0 L MCH 27 L MCHC RDW 19.9 H Lymph % (Auto) [place] % (Auto) 7.9 H Eos % (Auto) 7.6 H Lymph # 1.0 L [place] # Eos # 0.5 H Seg Neutrophils % Seg Neuts % (Manual) Lymphocytes % (Manual) Eosinophils % (Manual) Seg Neutrophils # Lymphocytes # (Manual) Eosinophils # (Manual) PT INR D-Dimer POC ABG pH POC ABG pCO2 POC ABG pO2 ABG pO2 ABG HCO3 ABG Base Excess ABG Hemoglobin Oxyhemoglobin Sodium Potassium Chloride Carbon Dioxide BUN 43 H Creatinine 3.2 H Glucose POC Glucose Calcium Phosphorus 2.30 L Magnesium ALT Alkaline Phosphatase Total Creatine Kinase CK-MB (CK-2) Rel Index Troponin T Albumin LDL Cholesterol Direct PTH Intact 267.6 H Salicylates Acetaminophen Crossmatch 03/02/19 03/02/19 03/03/19 12:32 18:20 13:30 WBC RBC Hgb Hct MCH MCHC RDW Lymph % (Auto) [place] % (Auto) Eos % (Auto) Lymph # [place] # Eos # Seg Neutrophils % Seg Neuts % (Manual) Lymphocytes % (Manual) Eosinophils % (Manual) Seg Neutrophils # Lymphocytes # (Manual) Eosinophils # (Manual) PT INR D-Dimer POC ABG pH POC ABG pCO2 POC ABG pO2 ABG pO2 ABG HCO3 ABG Base Excess ABG Hemoglobin Oxyhemoglobin Sodium Potassium Chloride 97.3 L Carbon Dioxide BUN 26 H Creatinine 2.2 H Glucose 73 L POC Glucose 111 H 156 H Calcium Phosphorus Magnesium ALT Alkaline Phosphatase Total Creatine Kinase CK-MB (CK-2) Rel Index Troponin T Albumin LDL Cholesterol Direct PTH Intact Salicylates Acetaminophen Crossmatch 03/04/19 03/04/19 03/04/19 00:02 05:37 05:40 WBC RBC 2.63 L Hgb 7.2 L Hct 22.2 L MCH MCHC RDW 20.2 H Lymph % (Auto) 10.5 L [place] % (Auto) Eos % (Auto) 4.6 H Lymph # 0.7 L [place] # Eos # Seg Neutrophils % 76.9 H Seg Neuts % (Manual) Lymphocytes % (Manual) Eosinophils % (Manual) Seg Neutrophils # Lymphocytes # (Manual) Eosinophils # (Manual) PT INR D-Dimer POC ABG pH POC ABG pCO2 POC ABG pO2 ABG pO2 ABG HCO3 ABG Base Excess ABG Hemoglobin Oxyhemoglobin Sodium Potassium Chloride Carbon Dioxide BUN Creatinine Glucose POC Glucose 136 H 123 H Calcium Phosphorus Magnesium ALT Alkaline Phosphatase Total Creatine Kinase CK-MB (CK-2) Rel Index Troponin T Albumin LDL Cholesterol Direct PTH Intact Salicylates Acetaminophen Crossmatch 03/04/19 03/04/19 03/04/19 05:40 11:39 23:20 WBC RBC Hgb Hct MCH MCHC RDW Lymph % (Auto) [place] % (Auto) Eos % (Auto) Lymph # [place] # Eos # Seg Neutrophils % Seg Neuts % (Manual) Lymphocytes % (Manual) Eosinophils % (Manual) Seg Neutrophils # Lymphocytes # (Manual) Eosinophils # (Manual) PT INR D-Dimer POC ABG pH POC ABG pCO2 POC ABG pO2 ABG pO2 ABG HCO3 ABG Base Excess ABG Hemoglobin Oxyhemoglobin Sodium Potassium Chloride Carbon Dioxide BUN 34 H Creatinine 2.7 H Glucose 114 H POC Glucose 175 H 151 H Calcium Phosphorus Magnesium ALT Alkaline Phosphatase Total Creatine Kinase CK-MB (CK-2) Rel Index Troponin T Albumin LDL Cholesterol Direct PTH Intact Salicylates Acetaminophen Crossmatch 03/05/19 03/05/19 03/05/19 05:37 12:08 17:11 WBC RBC Hgb Hct MCH MCHC RDW Lymph % (Auto) [place] % (Auto) Eos % (Auto) Lymph # [place] # Eos # Seg Neutrophils % Seg Neuts % (Manual) Lymphocytes % (Manual) Eosinophils % (Manual) Seg Neutrophils # Lymphocytes # (Manual) Eosinophils # (Manual) PT INR D-Dimer POC ABG pH POC ABG pCO2 POC ABG pO2 ABG pO2 ABG HCO3 ABG Base Excess ABG Hemoglobin Oxyhemoglobin Sodium Potassium Chloride Carbon Dioxide BUN Creatinine Glucose POC Glucose 134 H 135 H 135 H Calcium Phosphorus Magnesium ALT Alkaline Phosphatase Total Creatine Kinase CK-MB (CK-2) Rel Index Troponin T Albumin LDL Cholesterol Direct PTH Intact Salicylates Acetaminophen Crossmatch 03/06/19 03/06/19 03/06/19 00:16 13:05 18:09 WBC RBC Hgb Hct MCH MCHC RDW Lymph % (Auto) [place] % (Auto) Eos % (Auto) Lymph # [place] # Eos # Seg Neutrophils % Seg Neuts % (Manual) Lymphocytes % (Manual) Eosinophils % (Manual) Seg Neutrophils # Lymphocytes # (Manual) Eosinophils # (Manual) PT INR D-Dimer POC ABG pH POC ABG pCO2 POC ABG pO2 ABG pO2 ABG HCO3 ABG Base Excess ABG Hemoglobin Oxyhemoglobin Sodium Potassium Chloride Carbon Dioxide BUN Creatinine Glucose POC Glucose 117 H 113 H 131 H Calcium Phosphorus Magnesium ALT Alkaline Phosphatase Total Creatine Kinase CK-MB (CK-2) Rel Index Troponin T Albumin LDL Cholesterol Direct PTH Intact Salicylates Acetaminophen Crossmatch 03/07/19 03/08/19 03/08/19 05:25 05:33 16:00 WBC RBC 2.44 L Hgb 6.6 L Hct 20.8 L MCH 27 L MCHC RDW 19.2 H Lymph % (Auto) [place] % (Auto) Eos % (Auto) 8.6 H Lymph # 0.8 L [place] # Eos # 0.5 H Seg Neutrophils % 70.7 H Seg Neuts % (Manual) Lymphocytes % (Manual) Eosinophils % (Manual) Seg Neutrophils # Lymphocytes # (Manual) Eosinophils # (Manual) PT INR D-Dimer POC ABG pH POC ABG pCO2 POC ABG pO2 ABG pO2 ABG HCO3 ABG Base Excess ABG Hemoglobin Oxyhemoglobin Sodium Potassium Chloride Carbon Dioxide BUN Creatinine Glucose POC Glucose 106 H 108 H Calcium Phosphorus Magnesium ALT Alkaline Phosphatase Total Creatine Kinase CK-MB (CK-2) Rel Index Troponin T Albumin LDL Cholesterol Direct PTH Intact Salicylates Acetaminophen Crossmatch 03/08/19 03/08/19 03/08/19 16:00 18:38 Unknown WBC RBC Hgb Hct MCH MCHC RDW Lymph % (Auto) [place] % (Auto) Eos % (Auto) Lymph # [place] # Eos # Seg Neutrophils % Seg Neuts % (Manual) Lymphocytes % (Manual) Eosinophils % (Manual) Seg Neutrophils # Lymphocytes # (Manual) Eosinophils # (Manual) PT INR D-Dimer POC ABG pH POC ABG pCO2 POC ABG pO2 ABG pO2 ABG HCO3 ABG Base Excess ABG Hemoglobin Oxyhemoglobin Sodium Potassium 5.4 H D Chloride Carbon Dioxide BUN 47 H Creatinine 2.6 H Glucose POC Glucose 123 H Calcium Phosphorus Magnesium ALT < 5 L Alkaline Phosphatase Total Creatine Kinase CK-MB (CK-2) Rel Index Troponin T Albumin 2.2 L LDL Cholesterol Direct PTH Intact Salicylates Acetaminophen Crossmatch See Detail 03/09/19 03/09/19 03/09/19 10:48 12:28 13:53 WBC RBC 2.85 L Hgb 7.7 L Hct 24.2 L MCH 27 L MCHC RDW 18.7 H Lymph % (Auto) [place] % (Auto) Eos % (Auto) Lymph # [place] # Eos # Seg Neutrophils % Seg Neuts % (Manual) Lymphocytes % (Manual) Eosinophils % (Manual) Seg Neutrophils # Lymphocytes # (Manual) Eosinophils # (Manual) PT INR D-Dimer POC ABG pH POC ABG pCO2 POC ABG pO2 ABG pO2 ABG HCO3 30.5 H ABG Base Excess 5.6 H ABG Hemoglobin 8.1 L Oxyhemoglobin 93.8 L Sodium Potassium Chloride Carbon Dioxide BUN Creatinine Glucose POC Glucose 114 H Calcium Phosphorus Magnesium ALT Alkaline Phosphatase Total Creatine Kinase CK-MB (CK-2) Rel Index Troponin T Albumin LDL Cholesterol Direct PTH Intact Salicylates Acetaminophen Crossmatch 03/09/19 03/09/19 03/10/19 17:58 23:53 12:01 WBC RBC Hgb Hct MCH MCHC RDW Lymph % (Auto) [place] % (Auto) Eos % (Auto) Lymph # [place] # Eos # Seg Neutrophils % Seg Neuts % (Manual) Lymphocytes % (Manual) Eosinophils % (Manual) Seg Neutrophils # Lymphocytes # (Manual) Eosinophils # (Manual) PT INR D-Dimer POC ABG pH POC ABG pCO2 POC ABG pO2 ABG pO2 ABG HCO3 ABG Base Excess ABG Hemoglobin Oxyhemoglobin Sodium Potassium Chloride Carbon Dioxide BUN Creatinine Glucose POC Glucose 108 H 128 H 144 H Calcium Phosphorus Magnesium ALT Alkaline Phosphatase Total Creatine Kinase CK-MB (CK-2) Rel Index Troponin T Albumin LDL Cholesterol Direct PTH Intact Salicylates Acetaminophen Crossmatch 03/10/19 03/11/19 03/11/19 16:50 00:24 05:02 WBC RBC Hgb Hct MCH MCHC RDW Lymph % (Auto) [place] % (Auto) Eos % (Auto) Lymph # [place] # Eos # Seg Neutrophils % Seg Neuts % (Manual) Lymphocytes % (Manual) Eosinophils % (Manual) Seg Neutrophils # Lymphocytes # (Manual) Eosinophils # (Manual) PT INR D-Dimer POC ABG pH POC ABG pCO2 POC ABG pO2 ABG pO2 ABG HCO3 ABG Base Excess ABG Hemoglobin Oxyhemoglobin Sodium Potassium Chloride Carbon Dioxide BUN Creatinine Glucose POC Glucose 147 H 123 H 120 H Calcium Phosphorus Magnesium ALT Alkaline Phosphatase Total Creatine Kinase CK-MB (CK-2) Rel Index Troponin T Albumin LDL Cholesterol Direct PTH Intact Salicylates Acetaminophen Crossmatch 03/11/19 03/11/19 03/11/19 11:56 12:20 18:37 WBC RBC Hgb Hct MCH MCHC RDW Lymph % (Auto) [place] % (Auto) Eos % (Auto) Lymph # [place] # Eos # Seg Neutrophils % Seg Neuts % (Manual) Lymphocytes % (Manual) Eosinophils % (Manual) Seg Neutrophils # Lymphocytes # (Manual) Eosinophils # (Manual) PT INR D-Dimer POC ABG pH POC ABG pCO2 POC ABG pO2 ABG pO2 ABG HCO3 ABG Base Excess ABG Hemoglobin Oxyhemoglobin Sodium Potassium 5.2 H Chloride Carbon Dioxide BUN Creatinine Glucose POC Glucose 123 H 125 H Calcium Phosphorus Magnesium ALT Alkaline Phosphatase Total Creatine Kinase CK-MB (CK-2) Rel Index Troponin T Albumin LDL Cholesterol Direct PTH Intact Salicylates Acetaminophen Crossmatch 03/11/19 03/12/19 03/12/19 22:52 12:04 18:25 WBC RBC Hgb Hct MCH MCHC RDW Lymph % (Auto) [place] % (Auto) Eos % (Auto) Lymph # [place] # Eos # Seg Neutrophils % Seg Neuts % (Manual) Lymphocytes % (Manual) Eosinophils % (Manual) Seg Neutrophils # Lymphocytes # (Manual) Eosinophils # (Manual) PT INR D-Dimer POC ABG pH POC ABG pCO2 POC ABG pO2 ABG pO2 ABG HCO3 ABG Base Excess ABG Hemoglobin Oxyhemoglobin Sodium Potassium Chloride Carbon Dioxide BUN Creatinine Glucose POC Glucose 110 H 106 H 118 H Calcium Phosphorus Magnesium ALT Alkaline Phosphatase Total Creatine Kinase CK-MB (CK-2) Rel Index Troponin T Albumin LDL Cholesterol Direct PTH Intact Salicylates Acetaminophen Crossmatch 03/12/19 03/13/19 03/13/19 23:36 04:38 04:38 WBC RBC 2.95 L Hgb 7.9 L Hct 24.9 L MCH 27 L MCHC RDW 19.9 H Lymph % (Auto) 11.1 L [place] % (Auto) 8.1 H Eos % (Auto) 4.4 H Lymph # 0.9 L [place] # Eos # Seg Neutrophils % 75.4 H Seg Neuts % (Manual) Lymphocytes % (Manual) Eosinophils % (Manual) Seg Neutrophils # Lymphocytes # (Manual) Eosinophils # (Manual) PT INR D-Dimer POC ABG pH POC ABG pCO2 POC ABG pO2 ABG pO2 ABG HCO3 ABG Base Excess ABG Hemoglobin Oxyhemoglobin Sodium 136 L Potassium 5.1 H Chloride 93.8 L Carbon Dioxide BUN 48 H Creatinine 2.7 H Glucose 102 H POC Glucose 115 H Calcium Phosphorus Magnesium ALT < 5 L Alkaline Phosphatase 143 H Total Creatine Kinase CK-MB (CK-2) Rel Index Troponin T Albumin 2.5 L LDL Cholesterol Direct PTH Intact Salicylates Acetaminophen Crossmatch 03/13/19 03/13/19 03/13/19 05:33 13:37 18:03 WBC RBC Hgb Hct MCH MCHC RDW Lymph % (Auto) [place] % (Auto) Eos % (Auto) Lymph # [place] # Eos # Seg Neutrophils % Seg Neuts % (Manual) Lymphocytes % (Manual) Eosinophils % (Manual) Seg Neutrophils # Lymphocytes # (Manual) Eosinophils # (Manual) PT INR D-Dimer POC ABG pH POC ABG pCO2 POC ABG pO2 ABG pO2 ABG HCO3 ABG Base Excess ABG Hemoglobin Oxyhemoglobin Sodium Potassium Chloride Carbon Dioxide BUN Creatinine Glucose POC Glucose 140 H 150 H 158 H Calcium Phosphorus Magnesium ALT Alkaline Phosphatase Total Creatine Kinase CK-MB (CK-2) Rel Index Troponin T Albumin LDL Cholesterol Direct PTH Intact Salicylates Acetaminophen Crossmatch 03/13/19 03/14/19 03/14/19 23:32 05:24 12:20 WBC RBC Hgb Hct MCH MCHC RDW Lymph % (Auto) [place] % (Auto) Eos % (Auto) Lymph # [place] # Eos # Seg Neutrophils % Seg Neuts % (Manual) Lymphocytes % (Manual) Eosinophils % (Manual) Seg Neutrophils # Lymphocytes # (Manual) Eosinophils # (Manual) PT INR D-Dimer POC ABG pH POC ABG pCO2 POC ABG pO2 ABG pO2 ABG HCO3 ABG Base Excess ABG Hemoglobin Oxyhemoglobin Sodium Potassium Chloride Carbon Dioxide BUN Creatinine Glucose POC Glucose 162 H 146 H 127 H Calcium Phosphorus Magnesium ALT Alkaline Phosphatase Total Creatine Kinase CK-MB (CK-2) Rel Index Troponin T Albumin LDL Cholesterol Direct PTH Intact Salicylates Acetaminophen Crossmatch 03/14/19 03/14/19 03/15/19 18:05 23:57 04:38 WBC 12.8 H RBC 3.11 L Hgb 8.1 L Hct 26.5 L MCH 26 L MCHC 31 L RDW 19.7 H Lymph % (Auto) 4.4 L [place] % (Auto) 7.4 H Eos % (Auto) Lymph # 0.6 L [place] # 0.9 H Eos # Seg Neutrophils % 87.3 H Seg Neuts % (Manual) Lymphocytes % (Manual) Eosinophils % (Manual) Seg Neutrophils # 11.2 H Lymphocytes # (Manual) Eosinophils # (Manual) PT INR D-Dimer POC ABG pH POC ABG pCO2 POC ABG pO2 ABG pO2 ABG HCO3 ABG Base Excess ABG Hemoglobin Oxyhemoglobin Sodium Potassium Chloride Carbon Dioxide BUN Creatinine Glucose POC Glucose 142 H 155 H Calcium Phosphorus Magnesium ALT Alkaline Phosphatase Total Creatine Kinase CK-MB (CK-2) Rel Index Troponin T Albumin LDL Cholesterol Direct PTH Intact Salicylates Acetaminophen Crossmatch 03/15/19 03/15/19 03/15/19 04:38 05:31 11:32 WBC RBC Hgb Hct MCH MCHC RDW Lymph % (Auto) [place] % (Auto) Eos % (Auto) Lymph # [place] # Eos # Seg Neutrophils % Seg Neuts % (Manual) Lymphocytes % (Manual) Eosinophils % (Manual) Seg Neutrophils # Lymphocytes # (Manual) Eosinophils # (Manual) PT INR D-Dimer POC ABG pH POC ABG pCO2 POC ABG pO2 ABG pO2 ABG HCO3 ABG Base Excess ABG Hemoglobin Oxyhemoglobin Sodium 135 L Potassium Chloride 91.9 L Carbon Dioxide BUN 54 H Creatinine 2.8 H Glucose 128 H POC Glucose 160 H 109 H Calcium 11.1 H Phosphorus Magnesium ALT Alkaline Phosphatase 161 H Total Creatine Kinase CK-MB (CK-2) Rel Index Troponin T Albumin 2.3 L LDL Cholesterol Direct PTH Intact Salicylates Acetaminophen Crossmatch 03/15/19 03/15/19 03/16/19 18:15 23:41 05:40 WBC RBC Hgb Hct MCH MCHC RDW Lymph % (Auto) [place] % (Auto) Eos % (Auto) Lymph # [place] # Eos # Seg Neutrophils % Seg Neuts % (Manual) Lymphocytes % (Manual) Eosinophils % (Manual) Seg Neutrophils # Lymphocytes # (Manual) Eosinophils # (Manual) PT INR D-Dimer POC ABG pH POC ABG pCO2 POC ABG pO2 ABG pO2 ABG HCO3 ABG Base Excess ABG Hemoglobin Oxyhemoglobin Sodium Potassium Chloride Carbon Dioxide BUN Creatinine Glucose POC Glucose 151 H 110 H 163 H Calcium Phosphorus Magnesium ALT Alkaline Phosphatase Total Creatine Kinase CK-MB (CK-2) Rel Index Troponin T Albumin LDL Cholesterol Direct PTH Intact Salicylates Acetaminophen Crossmatch 03/16/19 03/16/19 03/16/19 11:55 17:04 23:58 WBC RBC Hgb Hct MCH MCHC RDW Lymph % (Auto) [place] % (Auto) Eos % (Auto) Lymph # [place] # Eos # Seg Neutrophils % Seg Neuts % (Manual) Lymphocytes % (Manual) Eosinophils % (Manual) Seg Neutrophils # Lymphocytes # (Manual) Eosinophils # (Manual) PT INR D-Dimer POC ABG pH POC ABG pCO2 POC ABG pO2 ABG pO2 ABG HCO3 ABG Base Excess ABG Hemoglobin Oxyhemoglobin Sodium Potassium Chloride Carbon Dioxide BUN Creatinine Glucose POC Glucose 114 H 147 H 192 H Calcium Phosphorus Magnesium ALT Alkaline Phosphatase Total Creatine Kinase CK-MB (CK-2) Rel Index Troponin T Albumin LDL Cholesterol Direct PTH Intact Salicylates Acetaminophen Crossmatch 03/17/19 03/17/19 03/17/19 05:53 11:17 17:01 WBC RBC Hgb Hct MCH MCHC RDW Lymph % (Auto) [place] % (Auto) Eos % (Auto) Lymph # [place] # Eos # Seg Neutrophils % Seg Neuts % (Manual) Lymphocytes % (Manual) Eosinophils % (Manual) Seg Neutrophils # Lymphocytes # (Manual) Eosinophils # (Manual) PT INR D-Dimer POC ABG pH POC ABG pCO2 POC ABG pO2 ABG pO2 ABG HCO3 ABG Base Excess ABG Hemoglobin Oxyhemoglobin Sodium Potassium Chloride Carbon Dioxide BUN Creatinine Glucose POC Glucose 151 H 161 H 152 H Calcium Phosphorus Magnesium ALT Alkaline Phosphatase Total Creatine Kinase CK-MB (CK-2) Rel Index Troponin T Albumin LDL Cholesterol Direct PTH Intact Salicylates Acetaminophen Crossmatch 03/17/19 03/18/19 03/18/19 21:47 04:15 04:44 WBC RBC Hgb Hct MCH MCHC RDW Lymph % (Auto) [place] % (Auto) Eos % (Auto) Lymph # [place] # Eos # Seg Neutrophils % Seg Neuts % (Manual) Lymphocytes % (Manual) Eosinophils % (Manual) Seg Neutrophils # Lymphocytes # (Manual) Eosinophils # (Manual) PT INR D-Dimer POC ABG pH POC ABG pCO2 POC ABG pO2 ABG pO2 102.8 H ABG HCO3 28.3 H ABG Base Excess ABG Hemoglobin 10.4 L Oxyhemoglobin 94.5 L Sodium Potassium Chloride Carbon Dioxide BUN Creatinine Glucose POC Glucose 170 H 150 H Calcium Phosphorus Magnesium ALT Alkaline Phosphatase Total Creatine Kinase CK-MB (CK-2) Rel Index Troponin T Albumin LDL Cholesterol Direct PTH Intact Salicylates Acetaminophen Crossmatch 03/18/19 03/18/19 03/18/19 06:38 12:12 17:47 WBC RBC Hgb Hct MCH MCHC RDW Lymph % (Auto) [place] % (Auto) Eos % (Auto) Lymph # [place] # Eos # Seg Neutrophils % Seg Neuts % (Manual) Lymphocytes % (Manual) Eosinophils % (Manual) Seg Neutrophils # Lymphocytes # (Manual) Eosinophils # (Manual) PT INR D-Dimer POC ABG pH 7.510 H POC ABG pCO2 POC ABG pO2 164 H ABG pO2 ABG HCO3 ABG Base Excess ABG Hemoglobin Oxyhemoglobin Sodium Potassium Chloride Carbon Dioxide BUN Creatinine Glucose POC Glucose 145 H 149 H Calcium Phosphorus Magnesium ALT Alkaline Phosphatase Total Creatine Kinase CK-MB (CK-2) Rel Index Troponin T Albumin LDL Cholesterol Direct PTH Intact Salicylates Acetaminophen Crossmatch 03/18/19 03/19/19 03/19/19 23:25 01:11 04:23 WBC 15.6 H RBC 2.51 L Hgb 6.5 L Hct 21.6 L MCH 26 L MCHC 30 L RDW 19.8 H Lymph % (Auto) 6.0 L [place] % (Auto) Eos % (Auto) Lymph # 0.9 L [place] # 1.0 H Eos # Seg Neutrophils % 85.5 H Seg Neuts % (Manual) Lymphocytes % (Manual) Eosinophils % (Manual) Seg Neutrophils # 13.4 H Lymphocytes # (Manual) Eosinophils # (Manual) PT INR D-Dimer POC ABG pH POC ABG pCO2 POC ABG pO2 ABG pO2 78.3 L ABG HCO3 30.7 H ABG Base Excess 5.8 H ABG Hemoglobin 5.8 L Oxyhemoglobin 94.6 L Sodium Potassium Chloride Carbon Dioxide BUN Creatinine Glucose POC Glucose 190 H Calcium Phosphorus Magnesium ALT Alkaline Phosphatase Total Creatine Kinase CK-MB (CK-2) Rel Index Troponin T Albumin LDL Cholesterol Direct PTH Intact Salicylates Acetaminophen Crossmatch 03/19/19 03/19/19 03/19/19 05:22 05:35 08:54 WBC RBC Hgb Hct MCH MCHC RDW Lymph % (Auto) [place] % (Auto) Eos % (Auto) Lymph # [place] # Eos # Seg Neutrophils % Seg Neuts % (Manual) Lymphocytes % (Manual) Eosinophils % (Manual) Seg Neutrophils # Lymphocytes # (Manual) Eosinophils # (Manual) PT INR D-Dimer POC ABG pH POC ABG pCO2 POC ABG pO2 ABG pO2 ABG HCO3 ABG Base Excess ABG Hemoglobin Oxyhemoglobin Sodium Potassium Chloride Carbon Dioxide BUN Creatinine Glucose POC Glucose 167 H Calcium Phosphorus Magnesium ALT Alkaline Phosphatase Total Creatine Kinase CK-MB (CK-2) Rel Index Troponin T Albumin LDL Cholesterol Direct PTH Intact Salicylates Acetaminophen Crossmatch See Detail See Detail 03/19/19 03/19/19 03/19/19 12:36 17:02 23:25 WBC RBC Hgb Hct MCH MCHC RDW Lymph % (Auto) [place] % (Auto) Eos % (Auto) Lymph # [place] # Eos # Seg Neutrophils % Seg Neuts % (Manual) Lymphocytes % (Manual) Eosinophils % (Manual) Seg Neutrophils # Lymphocytes # (Manual) Eosinophils # (Manual) PT INR D-Dimer POC ABG pH POC ABG pCO2 POC ABG pO2 ABG pO2 ABG HCO3 ABG Base Excess ABG Hemoglobin Oxyhemoglobin Sodium Potassium Chloride Carbon Dioxide BUN Creatinine Glucose POC Glucose 167 H 135 H 136 H Calcium Phosphorus Magnesium ALT Alkaline Phosphatase Total Creatine Kinase CK-MB (CK-2) Rel Index Troponin T Albumin LDL Cholesterol Direct PTH Intact Salicylates Acetaminophen Crossmatch 03/20/19 03/20/19 03/20/19 05:38 08:40 08:40 WBC RBC 2.61 L Hgb 7.1 L Hct 22.0 L MCH 27 L MCHC RDW 19.6 H Lymph % (Auto) 8.2 L [place] % (Auto) 8.3 H Eos % (Auto) 5.7 H Lymph # 0.8 L [place] # Eos # 0.5 H Seg Neutrophils % 77.3 H Seg Neuts % (Manual) Lymphocytes % (Manual) Eosinophils % (Manual) Seg Neutrophils # Lymphocytes # (Manual) Eosinophils # (Manual) PT INR D-Dimer POC ABG pH POC ABG pCO2 POC ABG pO2 ABG pO2 ABG HCO3 ABG Base Excess ABG Hemoglobin Oxyhemoglobin Sodium Potassium Chloride 95.9 L Carbon Dioxide BUN 69 H Creatinine 2.8 H Glucose 115 H POC Glucose 134 H Calcium 10.5 H Phosphorus Magnesium ALT Alkaline Phosphatase Total Creatine Kinase CK-MB (CK-2) Rel Index Troponin T Albumin LDL Cholesterol Direct PTH Intact Salicylates Acetaminophen Crossmatch 03/20/19 03/20/19 03/20/19 12:13 18:04 23:49 WBC RBC Hgb Hct MCH MCHC RDW Lymph % (Auto) [place] % (Auto) Eos % (Auto) Lymph # [place] # Eos # Seg Neutrophils % Seg Neuts % (Manual) Lymphocytes % (Manual) Eosinophils % (Manual) Seg Neutrophils # Lymphocytes # (Manual) Eosinophils # (Manual) PT INR D-Dimer POC ABG pH POC ABG pCO2 POC ABG pO2 ABG pO2 ABG HCO3 ABG Base Excess ABG Hemoglobin Oxyhemoglobin Sodium Potassium Chloride Carbon Dioxide BUN Creatinine Glucose POC Glucose 144 H 165 H 172 H Calcium Phosphorus Magnesium ALT Alkaline Phosphatase Total Creatine Kinase CK-MB (CK-2) Rel Index Troponin T Albumin LDL Cholesterol Direct PTH Intact Salicylates Acetaminophen Crossmatch 03/21/19 03/21/19 03/21/19 05:00 06:29 06:30 WBC RBC 2.72 L Hgb 7.4 L Hct 22.9 L MCH 27 L MCHC RDW 19.4 H Lymph % (Auto) [place] % (Auto) Eos % (Auto) Lymph # [place] # Eos # Seg Neutrophils % Seg Neuts % (Manual) 81.0 H Lymphocytes % (Manual) 8.0 L Eosinophils % (Manual) 8.0 H Seg Neutrophils # Lymphocytes # (Manual) 0.7 L Eosinophils # (Manual) 0.7 H PT INR D-Dimer POC ABG pH POC ABG pCO2 POC ABG pO2 ABG pO2 ABG HCO3 ABG Base Excess ABG Hemoglobin Oxyhemoglobin Sodium Potassium Chloride Carbon Dioxide 33 H BUN 43 H Creatinine 1.7 H Glucose 145 H POC Glucose 156 H Calcium Phosphorus Magnesium ALT Alkaline Phosphatase 212 H Total Creatine Kinase CK-MB (CK-2) Rel Index Troponin T Albumin 2.2 L LDL Cholesterol Direct PTH Intact Salicylates Acetaminophen Crossmatch 03/21/19 03/21/19 03/22/19 12:02 18:07 00:21 WBC RBC Hgb Hct MCH MCHC RDW Lymph % (Auto) [place] % (Auto) Eos % (Auto) Lymph # [place] # Eos # Seg Neutrophils % Seg Neuts % (Manual) Lymphocytes % (Manual) Eosinophils % (Manual) Seg Neutrophils # Lymphocytes # (Manual) Eosinophils # (Manual) PT INR D-Dimer POC ABG pH POC ABG pCO2 POC ABG pO2 ABG pO2 ABG HCO3 ABG Base Excess ABG Hemoglobin Oxyhemoglobin Sodium Potassium Chloride Carbon Dioxide BUN Creatinine Glucose POC Glucose 163 H 144 H 153 H Calcium Phosphorus Magnesium ALT Alkaline Phosphatase Total Creatine Kinase CK-MB (CK-2) Rel Index Troponin T Albumin LDL Cholesterol Direct PTH Intact Salicylates Acetaminophen Crossmatch 03/22/19 03/22/19 03/22/19 05:23 05:23 05:31 WBC RBC 2.58 L Hgb 7.1 L Hct 21.8 L MCH 27 L MCHC RDW 19.2 H Lymph % (Auto) [place] % (Auto) Eos % (Auto) Lymph # [place] # Eos # Seg Neutrophils % Seg Neuts % (Manual) Lymphocytes % (Manual) Eosinophils % (Manual) Seg Neutrophils # Lymphocytes # (Manual) Eosinophils # (Manual) PT INR D-Dimer POC ABG pH POC ABG pCO2 POC ABG pO2 ABG pO2 ABG HCO3 ABG Base Excess ABG Hemoglobin Oxyhemoglobin Sodium 147 H Potassium Chloride Carbon Dioxide BUN 68 H Creatinine 2.5 H Glucose POC Glucose 116 H Calcium 10.3 H Phosphorus Magnesium ALT Alkaline Phosphatase Total Creatine Kinase CK-MB (CK-2) Rel Index Troponin T Albumin LDL Cholesterol Direct PTH Intact Salicylates Acetaminophen Crossmatch 03/22/19 03/22/19 03/22/19 08:48 12:37 17:35 WBC RBC Hgb Hct MCH MCHC RDW Lymph % (Auto) [place] % (Auto) Eos % (Auto) Lymph # [place] # Eos # Seg Neutrophils % Seg Neuts % (Manual) Lymphocytes % (Manual) Eosinophils % (Manual) Seg Neutrophils # Lymphocytes # (Manual) Eosinophils # (Manual) PT INR D-Dimer POC ABG pH POC ABG pCO2 POC ABG pO2 ABG pO2 ABG HCO3 ABG Base Excess ABG Hemoglobin Oxyhemoglobin Sodium Potassium Chloride Carbon Dioxide BUN Creatinine Glucose POC Glucose 143 H 155 H Calcium Phosphorus Magnesium ALT Alkaline Phosphatase Total Creatine Kinase CK-MB (CK-2) Rel Index Troponin T Albumin LDL Cholesterol Direct PTH Intact Salicylates Acetaminophen Crossmatch See Detail 03/23/19 03/23/19 03/23/19 00:07 04:00 04:00 WBC 11.2 H RBC 2.32 L Hgb 6.4 L Hct 19.7 L* MCH MCHC RDW 19.4 H Lymph % (Auto) [place] % (Auto) Eos % (Auto) Lymph # [place] # Eos # Seg Neutrophils % Seg Neuts % (Manual) Lymphocytes % (Manual) Eosinophils % (Manual) Seg Neutrophils # Lymphocytes # (Manual) Eosinophils # (Manual) PT INR D-Dimer POC ABG pH POC ABG pCO2 POC ABG pO2 ABG pO2 ABG HCO3 ABG Base Excess ABG Hemoglobin Oxyhemoglobin Sodium 147 H Potassium 5.2 H Chloride Carbon Dioxide BUN 86 H Creatinine 3.2 H Glucose 128 H POC Glucose 135 H Calcium 10.3 H Phosphorus Magnesium ALT Alkaline Phosphatase Total Creatine Kinase CK-MB (CK-2) Rel Index Troponin T Albumin LDL Cholesterol Direct PTH Intact Salicylates Acetaminophen Crossmatch 03/23/19 03/23/19 03/23/19 05:21 11:36 11:36 WBC RBC Hgb 7.9 L Hct 25.0 L MCH MCHC RDW Lymph % (Auto) [place] % (Auto) Eos % (Auto) Lymph # [place] # Eos # Seg Neutrophils % Seg Neuts % (Manual) Lymphocytes % (Manual) Eosinophils % (Manual) Seg Neutrophils # Lymphocytes # (Manual) Eosinophils # (Manual) PT INR D-Dimer POC ABG pH POC ABG pCO2 POC ABG pO2 ABG pO2 ABG HCO3 ABG Base Excess ABG Hemoglobin Oxyhemoglobin Sodium Potassium Chloride Carbon Dioxide BUN Creatinine Glucose POC Glucose 132 H 147 H Calcium Phosphorus Magnesium ALT Alkaline Phosphatase Total Creatine Kinase CK-MB (CK-2) Rel Index Troponin T Albumin LDL Cholesterol Direct PTH Intact Salicylates Acetaminophen Crossmatch 03/23/19 03/24/19 03/24/19 17:31 01:22 04:20 WBC 12.2 H RBC 3.05 L Hgb 8.3 L Hct 25.9 L MCH 27 L MCHC RDW 18.7 H Lymph % (Auto) [place] % (Auto) Eos % (Auto) Lymph # [place] # Eos # Seg Neutrophils % Seg Neuts % (Manual) Lymphocytes % (Manual) Eosinophils % (Manual) Seg Neutrophils # Lymphocytes # (Manual) Eosinophils # (Manual) PT INR D-Dimer POC ABG pH POC ABG pCO2 POC ABG pO2 ABG pO2 ABG HCO3 ABG Base Excess ABG Hemoglobin Oxyhemoglobin Sodium Potassium Chloride Carbon Dioxide BUN Creatinine Glucose POC Glucose 182 H 113 H Calcium Phosphorus Magnesium ALT Alkaline Phosphatase Total Creatine Kinase CK-MB (CK-2) Rel Index Troponin T Albumin LDL Cholesterol Direct PTH Intact Salicylates Acetaminophen Crossmatch 03/24/19 03/24/19 03/24/19 04:20 11:59 18:14 WBC RBC Hgb Hct MCH MCHC RDW Lymph % (Auto) [place] % (Auto) Eos % (Auto) Lymph # [place] # Eos # Seg Neutrophils % Seg Neuts % (Manual) Lymphocytes % (Manual) Eosinophils % (Manual) Seg Neutrophils # Lymphocytes # (Manual) Eosinophils # (Manual) PT INR D-Dimer POC ABG pH POC ABG pCO2 POC ABG pO2 ABG pO2 ABG HCO3 ABG Base Excess ABG Hemoglobin Oxyhemoglobin Sodium Potassium Chloride 94.8 L Carbon Dioxide 32 H BUN 53 H Creatinine 2.3 H Glucose POC Glucose 163 H 134 H Calcium Phosphorus Magnesium ALT Alkaline Phosphatase Total Creatine Kinase CK-MB (CK-2) Rel Index Troponin T Albumin LDL Cholesterol Direct PTH Intact Salicylates Acetaminophen Crossmatch 03/24/19 03/25/19 03/25/19 23:15 05:52 12:02 WBC RBC Hgb Hct MCH MCHC RDW Lymph % (Auto) [place] % (Auto) Eos % (Auto) Lymph # [place] # Eos # Seg Neutrophils % Seg Neuts % (Manual) Lymphocytes % (Manual) Eosinophils % (Manual) Seg Neutrophils # Lymphocytes # (Manual) Eosinophils # (Manual) PT INR D-Dimer POC ABG pH POC ABG pCO2 POC ABG pO2 ABG pO2 ABG HCO3 ABG Base Excess ABG Hemoglobin Oxyhemoglobin Sodium Potassium Chloride Carbon Dioxide BUN Creatinine Glucose POC Glucose 129 H 123 H 125 H Calcium Phosphorus Magnesium ALT Alkaline Phosphatase Total Creatine Kinase CK-MB (CK-2) Rel Index Troponin T Albumin LDL Cholesterol Direct PTH Intact Salicylates Acetaminophen Crossmatch 03/25/19 03/26/19 03/26/19 17:27 00:30 05:35 WBC RBC 3.01 L Hgb 8.1 L Hct 25.7 L MCH 27 L MCHC RDW 19.2 H Lymph % (Auto) 11.4 L [place] % (Auto) Eos % (Auto) 8.0 H Lymph # 1.0 L [place] # Eos # 0.7 H Seg Neutrophils % 73.9 H Seg Neuts % (Manual) Lymphocytes % (Manual) Eosinophils % (Manual) Seg Neutrophils # Lymphocytes # (Manual) Eosinophils # (Manual) PT INR D-Dimer POC ABG pH POC ABG pCO2 POC ABG pO2 ABG pO2 ABG HCO3 ABG Base Excess ABG Hemoglobin Oxyhemoglobin Sodium Potassium Chloride Carbon Dioxide BUN Creatinine Glucose POC Glucose 130 H 129 H Calcium Phosphorus Magnesium ALT Alkaline Phosphatase Total Creatine Kinase CK-MB (CK-2) Rel Index Troponin T Albumin LDL Cholesterol Direct PTH Intact Salicylates Acetaminophen Crossmatch 03/26/19 03/26/19 03/26/19 05:35 05:45 12:16 WBC RBC Hgb Hct MCH MCHC RDW Lymph % (Auto) [place] % (Auto) Eos % (Auto) Lymph # [place] # Eos # Seg Neutrophils % Seg Neuts % (Manual) Lymphocytes % (Manual) Eosinophils % (Manual) Seg Neutrophils # Lymphocytes # (Manual) Eosinophils # (Manual) PT INR D-Dimer POC ABG pH POC ABG pCO2 POC ABG pO2 ABG pO2 ABG HCO3 ABG Base Excess ABG Hemoglobin Oxyhemoglobin Sodium Potassium Chloride 94.9 L Carbon Dioxide 31 H BUN 44 H Creatinine 2.0 H Glucose POC Glucose 118 H 107 H Calcium Phosphorus Magnesium ALT Alkaline Phosphatase Total Creatine Kinase CK-MB (CK-2) Rel Index Troponin T Albumin LDL Cholesterol Direct PTH Intact Salicylates Acetaminophen Crossmatch 03/26/19 03/27/19 03/27/19 17:56 00:36 05:37 WBC RBC Hgb Hct MCH MCHC RDW Lymph % (Auto) [place] % (Auto) Eos % (Auto) Lymph # [place] # Eos # Seg Neutrophils % Seg Neuts % (Manual) Lymphocytes % (Manual) Eosinophils % (Manual) Seg Neutrophils # Lymphocytes # (Manual) Eosinophils # (Manual) PT INR D-Dimer POC ABG pH POC ABG pCO2 POC ABG pO2 ABG pO2 ABG HCO3 ABG Base Excess ABG Hemoglobin Oxyhemoglobin Sodium Potassium Chloride Carbon Dioxide BUN Creatinine Glucose POC Glucose 107 H 110 H 122 H Calcium Phosphorus Magnesium ALT Alkaline Phosphatase Total Creatine Kinase CK-MB (CK-2) Rel Index Troponin T Albumin LDL Cholesterol Direct PTH Intact Salicylates Acetaminophen Crossmatch 03/27/19 03/27/19 03/28/19 11:22 18:00 05:17 WBC RBC Hgb Hct MCH MCHC RDW Lymph % (Auto) [place] % (Auto) Eos % (Auto) Lymph # [place] # Eos # Seg Neutrophils % Seg Neuts % (Manual) Lymphocytes % (Manual) Eosinophils % (Manual) Seg Neutrophils # Lymphocytes # (Manual) Eosinophils # (Manual) PT INR D-Dimer POC ABG pH POC ABG pCO2 POC ABG pO2 ABG pO2 ABG HCO3 ABG Base Excess ABG Hemoglobin Oxyhemoglobin Sodium Potassium Chloride Carbon Dioxide BUN Creatinine Glucose POC Glucose 120 H 111 H 107 H Calcium Phosphorus Magnesium ALT Alkaline Phosphatase Total Creatine Kinase CK-MB (CK-2) Rel Index Troponin T Albumin LDL Cholesterol Direct PTH Intact Salicylates Acetaminophen Crossmatch 03/28/19 03/28/19 03/29/19 12:27 18:08 05:47 WBC RBC Hgb Hct MCH MCHC RDW Lymph % (Auto) [place] % (Auto) Eos % (Auto) Lymph # [place] # Eos # Seg Neutrophils % Seg Neuts % (Manual) Lymphocytes % (Manual) Eosinophils % (Manual) Seg Neutrophils # Lymphocytes # (Manual) Eosinophils # (Manual) PT INR D-Dimer POC ABG pH POC ABG pCO2 POC ABG pO2 ABG pO2 ABG HCO3 ABG Base Excess ABG Hemoglobin Oxyhemoglobin Sodium Potassium Chloride Carbon Dioxide BUN Creatinine Glucose POC Glucose 114 H 121 H 112 H Calcium Phosphorus Magnesium ALT Alkaline Phosphatase Total Creatine Kinase CK-MB (CK-2) Rel Index Troponin T Albumin LDL Cholesterol Direct PTH Intact Salicylates Acetaminophen Crossmatch 03/29/19 03/29/19 03/30/19 12:14 18:08 00:31 WBC RBC Hgb Hct MCH MCHC RDW Lymph % (Auto) [place] % (Auto) Eos % (Auto) Lymph # [place] # Eos # Seg Neutrophils % Seg Neuts % (Manual) Lymphocytes % (Manual) Eosinophils % (Manual) Seg Neutrophils # Lymphocytes # (Manual) Eosinophils # (Manual) PT INR D-Dimer POC ABG pH POC ABG pCO2 POC ABG pO2 ABG pO2 ABG HCO3 ABG Base Excess ABG Hemoglobin Oxyhemoglobin Sodium Potassium Chloride Carbon Dioxide BUN Creatinine Glucose POC Glucose 117 H 140 H 114 H Calcium Phosphorus Magnesium ALT Alkaline Phosphatase Total Creatine Kinase CK-MB (CK-2) Rel Index Troponin T Albumin LDL Cholesterol Direct PTH Intact Salicylates Acetaminophen Crossmatch 03/30/19 03/30/19 03/30/19 10:13 10:13 23:53 WBC RBC 2.81 L Hgb 7.7 L Hct 24.3 L MCH 27 L MCHC RDW 19.0 H Lymph % (Auto) 12.2 L [place] % (Auto) Eos % (Auto) 7.9 H Lymph # 1.0 L [place] # Eos # 0.6 H Seg Neutrophils % 72.3 H Seg Neuts % (Manual) Lymphocytes % (Manual) Eosinophils % (Manual) Seg Neutrophils # Lymphocytes # (Manual) Eosinophils # (Manual) PT INR D-Dimer POC ABG pH POC ABG pCO2 POC ABG pO2 ABG pO2 ABG HCO3 ABG Base Excess ABG Hemoglobin Oxyhemoglobin Sodium Potassium 5.1 H Chloride 96.5 L Carbon Dioxide BUN 73 H Creatinine 3.9 H D Glucose POC Glucose 114 H Calcium 10.3 H Phosphorus 6.30 H Magnesium 2.70 H ALT Alkaline Phosphatase 185 H Total Creatine Kinase CK-MB (CK-2) Rel Index Troponin T Albumin 2.6 L LDL Cholesterol Direct PTH Intact Salicylates Acetaminophen Crossmatch 03/31/19 03/31/19 03/31/19 05:45 10:26 10:26 WBC RBC 3.01 L Hgb 8.2 L Hct 26.4 L MCH 27 L MCHC 31 L RDW 20.3 H Lymph % (Auto) 13.3 L [place] % (Auto) Eos % (Auto) 7.2 H Lymph # 1.1 L [place] # Eos # 0.6 H Seg Neutrophils % 72.1 H Seg Neuts % (Manual) Lymphocytes % (Manual) Eosinophils % (Manual) Seg Neutrophils # Lymphocytes # (Manual) Eosinophils # (Manual) PT INR D-Dimer POC ABG pH POC ABG pCO2 POC ABG pO2 ABG pO2 ABG HCO3 ABG Base Excess ABG Hemoglobin Oxyhemoglobin Sodium Potassium Chloride 96.9 L Carbon Dioxide 33 H BUN 37 H Creatinine 2.4 H Glucose POC Glucose 108 H Calcium 10.3 H Phosphorus Magnesium ALT Alkaline Phosphatase Total Creatine Kinase CK-MB (CK-2) Rel Index Troponin T Albumin LDL Cholesterol Direct PTH Intact Salicylates Acetaminophen Crossmatch 03/31/19 04/01/19 04/01/19 12:38 05:48 12:06 WBC RBC Hgb Hct MCH MCHC RDW Lymph % (Auto) [place] % (Auto) Eos % (Auto) Lymph # [place] # Eos # Seg Neutrophils % Seg Neuts % (Manual) Lymphocytes % (Manual) Eosinophils % (Manual) Seg Neutrophils # Lymphocytes # (Manual) Eosinophils # (Manual) PT INR D-Dimer POC ABG pH POC ABG pCO2 POC ABG pO2 ABG pO2 ABG HCO3 ABG Base Excess ABG Hemoglobin Oxyhemoglobin Sodium Potassium Chloride Carbon Dioxide BUN Creatinine Glucose POC Glucose 108 H 114 H 111 H Calcium Phosphorus Magnesium ALT Alkaline Phosphatase Total Creatine Kinase CK-MB (CK-2) Rel Index Troponin T Albumin LDL Cholesterol Direct PTH Intact Salicylates Acetaminophen Crossmatch 04/01/19 04/02/19 04/04/19 18:24 00:36 23:55 WBC RBC Hgb Hct MCH MCHC RDW Lymph % (Auto) [place] % (Auto) Eos % (Auto) Lymph # [place] # Eos # Seg Neutrophils % Seg Neuts % (Manual) Lymphocytes % (Manual) Eosinophils % (Manual) Seg Neutrophils # Lymphocytes # (Manual) Eosinophils # (Manual) PT INR D-Dimer POC ABG pH POC ABG pCO2 POC ABG pO2 ABG pO2 ABG HCO3 ABG Base Excess ABG Hemoglobin Oxyhemoglobin Sodium Potassium Chloride Carbon Dioxide BUN Creatinine Glucose POC Glucose 113 H 117 H 109 H Calcium Phosphorus Magnesium ALT Alkaline Phosphatase Total Creatine Kinase CK-MB (CK-2) Rel Index Troponin T Albumin LDL Cholesterol Direct PTH Intact Salicylates Acetaminophen Crossmatch 04/06/19 04/06/19 04/06/19 00:11 06:02 23:30 WBC RBC Hgb Hct MCH MCHC RDW Lymph % (Auto) [place] % (Auto) Eos % (Auto) Lymph # [place] # Eos # Seg Neutrophils % Seg Neuts % (Manual) Lymphocytes % (Manual) Eosinophils % (Manual) Seg Neutrophils # Lymphocytes # (Manual) Eosinophils # (Manual) PT INR D-Dimer POC ABG pH POC ABG pCO2 POC ABG pO2 ABG pO2 ABG HCO3 ABG Base Excess ABG Hemoglobin Oxyhemoglobin Sodium Potassium Chloride Carbon Dioxide BUN Creatinine Glucose POC Glucose 116 H 112 H 112 H Calcium Phosphorus Magnesium ALT Alkaline Phosphatase Total Creatine Kinase CK-MB (CK-2) Rel Index Troponin T Albumin LDL Cholesterol Direct PTH Intact Salicylates Acetaminophen Crossmatch 04/08/19 04/08/19 04/08/19 02:23 06:19 13:01 WBC RBC Hgb Hct MCH MCHC RDW Lymph % (Auto) [place] % (Auto) Eos % (Auto) Lymph # [place] # Eos # Seg Neutrophils % Seg Neuts % (Manual) Lymphocytes % (Manual) Eosinophils % (Manual) Seg Neutrophils # Lymphocytes # (Manual) Eosinophils # (Manual) PT INR D-Dimer POC ABG pH POC ABG pCO2 POC ABG pO2 ABG pO2 ABG HCO3 ABG Base Excess ABG Hemoglobin Oxyhemoglobin Sodium Potassium Chloride Carbon Dioxide BUN Creatinine Glucose POC Glucose 144 H 126 H 118 H Calcium Phosphorus Magnesium ALT Alkaline Phosphatase Total Creatine Kinase CK-MB (CK-2) Rel Index Troponin T Albumin LDL Cholesterol Direct PTH Intact Salicylates Acetaminophen Crossmatch 04/08/19 04/09/19 04/10/19 23:28 05:52 06:34 WBC RBC Hgb Hct MCH MCHC RDW Lymph % (Auto) [place] % (Auto) Eos % (Auto) Lymph # [place] # Eos # Seg Neutrophils % Seg Neuts % (Manual) Lymphocytes % (Manual) Eosinophils % (Manual) Seg Neutrophils # Lymphocytes # (Manual) Eosinophils # (Manual) PT INR D-Dimer POC ABG pH POC ABG pCO2 POC ABG pO2 ABG pO2 ABG HCO3 ABG Base Excess ABG Hemoglobin Oxyhemoglobin Sodium Potassium Chloride Carbon Dioxide BUN Creatinine Glucose POC Glucose 119 H 116 H 114 H Calcium Phosphorus Magnesium ALT Alkaline Phosphatase Total Creatine Kinase CK-MB (CK-2) Rel Index Troponin T Albumin LDL Cholesterol Direct PTH Intact Salicylates Acetaminophen Crossmatch 04/10/19 04/10/19 04/11/19 12:34 18:59 00:36 WBC RBC Hgb Hct MCH MCHC RDW Lymph % (Auto) [place] % (Auto) Eos % (Auto) Lymph # [place] # Eos # Seg Neutrophils % Seg Neuts % (Manual) Lymphocytes % (Manual) Eosinophils % (Manual) Seg Neutrophils # Lymphocytes # (Manual) Eosinophils # (Manual) PT INR D-Dimer POC ABG pH POC ABG pCO2 POC ABG pO2 ABG pO2 ABG HCO3 ABG Base Excess ABG Hemoglobin Oxyhemoglobin Sodium Potassium Chloride Carbon Dioxide BUN Creatinine Glucose POC Glucose 112 H 109 H 124 H Calcium Phosphorus Magnesium ALT Alkaline Phosphatase Total Creatine Kinase CK-MB (CK-2) Rel Index Troponin T Albumin LDL Cholesterol Direct PTH Intact Salicylates Acetaminophen Crossmatch 04/11/19 04/11/19 04/12/19 08:01 17:25 02:18 WBC RBC Hgb Hct MCH MCHC RDW Lymph % (Auto) [place] % (Auto) Eos % (Auto) Lymph # [place] # Eos # Seg Neutrophils % Seg Neuts % (Manual) Lymphocytes % (Manual) Eosinophils % (Manual) Seg Neutrophils # Lymphocytes # (Manual) Eosinophils # (Manual) PT INR D-Dimer POC ABG pH POC ABG pCO2 POC ABG pO2 ABG pO2 ABG HCO3 ABG Base Excess ABG Hemoglobin Oxyhemoglobin Sodium Potassium Chloride Carbon Dioxide BUN Creatinine Glucose POC Glucose 118 H 106 H 125 H Calcium Phosphorus Magnesium ALT Alkaline Phosphatase Total Creatine Kinase CK-MB (CK-2) Rel Index Troponin T Albumin LDL Cholesterol Direct PTH Intact Salicylates Acetaminophen Crossmatch 04/12/19 04/12/19 04/12/19 06:24 12:22 17:13 WBC RBC Hgb Hct MCH MCHC RDW Lymph % (Auto) [place] % (Auto) Eos % (Auto) Lymph # [place] # Eos # Seg Neutrophils % Seg Neuts % (Manual) Lymphocytes % (Manual) Eosinophils % (Manual) Seg Neutrophils # Lymphocytes # (Manual) Eosinophils # (Manual) PT INR D-Dimer POC ABG pH POC ABG pCO2 POC ABG pO2 ABG pO2 ABG HCO3 ABG Base Excess ABG Hemoglobin Oxyhemoglobin Sodium Potassium Chloride Carbon Dioxide BUN Creatinine Glucose POC Glucose 128 H 114 H 110 H Calcium Phosphorus Magnesium ALT Alkaline Phosphatase Total Creatine Kinase CK-MB (CK-2) Rel Index Troponin T Albumin LDL Cholesterol Direct PTH Intact Salicylates Acetaminophen Crossmatch 04/13/19 04/13/19 04/13/19 06:59 07:31 07:31 WBC RBC 3.34 L Hgb 8.9 L Hct 28.6 L MCH 27 L MCHC 31 L RDW 19.6 H Lymph % (Auto) [place] % (Auto) Eos % (Auto) Lymph # [place] # Eos # Seg Neutrophils % Seg Neuts % (Manual) Lymphocytes % (Manual) Eosinophils % (Manual) Seg Neutrophils # Lymphocytes # (Manual) Eosinophils # (Manual) PT INR D-Dimer POC ABG pH POC ABG pCO2 POC ABG pO2 ABG pO2 ABG HCO3 ABG Base Excess ABG Hemoglobin Oxyhemoglobin Sodium Potassium Chloride 96.4 L Carbon Dioxide 33 H BUN 66 H Creatinine 4.5 H Glucose 103 H POC Glucose 107 H Calcium Phosphorus Magnesium ALT Alkaline Phosphatase Total Creatine Kinase CK-MB (CK-2) Rel Index Troponin T Albumin LDL Cholesterol Direct PTH Intact Salicylates Acetaminophen Crossmatch 04/13/19 04/14/19 04/14/19 23:43 05:50 13:07 WBC RBC Hgb Hct MCH MCHC RDW Lymph % (Auto) [place] % (Auto) Eos % (Auto) Lymph # [place] # Eos # Seg Neutrophils % Seg Neuts % (Manual) Lymphocytes % (Manual) Eosinophils % (Manual) Seg Neutrophils # Lymphocytes # (Manual) Eosinophils # (Manual) PT INR D-Dimer POC ABG pH POC ABG pCO2 POC ABG pO2 ABG pO2 ABG HCO3 ABG Base Excess ABG Hemoglobin Oxyhemoglobin Sodium Potassium Chloride Carbon Dioxide BUN Creatinine Glucose POC Glucose 119 H 112 H 112 H Calcium Phosphorus Magnesium ALT Alkaline Phosphatase Total Creatine Kinase CK-MB (CK-2) Rel Index Troponin T Albumin LDL Cholesterol Direct PTH Intact Salicylates Acetaminophen Crossmatch 04/14/19 04/15/19 04/15/19 18:35 01:18 05:17 WBC RBC Hgb Hct MCH MCHC RDW Lymph % (Auto) [place] % (Auto) Eos % (Auto) Lymph # [place] # Eos # Seg Neutrophils % Seg Neuts % (Manual) Lymphocytes % (Manual) Eosinophils % (Manual) Seg Neutrophils # Lymphocytes # (Manual) Eosinophils # (Manual) PT INR D-Dimer POC ABG pH POC ABG pCO2 POC ABG pO2 ABG pO2 ABG HCO3 ABG Base Excess ABG Hemoglobin Oxyhemoglobin Sodium Potassium Chloride Carbon Dioxide BUN Creatinine Glucose POC Glucose 114 H 114 H 114 H Calcium Phosphorus Magnesium ALT Alkaline Phosphatase Total Creatine Kinase CK-MB (CK-2) Rel Index Troponin T Albumin LDL Cholesterol Direct PTH Intact Salicylates Acetaminophen Crossmatch 04/15/19 04/15/19 04/16/19 11:50 23:39 05:41 WBC RBC Hgb Hct MCH MCHC RDW Lymph % (Auto) [place] % (Auto) Eos % (Auto) Lymph # [place] # Eos # Seg Neutrophils % Seg Neuts % (Manual) Lymphocytes % (Manual) Eosinophils % (Manual) Seg Neutrophils # Lymphocytes # (Manual) Eosinophils # (Manual) PT INR D-Dimer POC ABG pH POC ABG pCO2 POC ABG pO2 ABG pO2 ABG HCO3 ABG Base Excess ABG Hemoglobin Oxyhemoglobin Sodium Potassium Chloride Carbon Dioxide BUN Creatinine Glucose POC Glucose 109 H 115 H 125 H Calcium Phosphorus Magnesium ALT Alkaline Phosphatase Total Creatine Kinase CK-MB (CK-2) Rel Index Troponin T Albumin LDL Cholesterol Direct PTH Intact Salicylates Acetaminophen Crossmatch 04/16/19 04/17/19 04/17/19 12:53 01:00 12:38 WBC RBC Hgb Hct MCH MCHC RDW Lymph % (Auto) [place] % (Auto) Eos % (Auto) Lymph # [place] # Eos # Seg Neutrophils % Seg Neuts % (Manual) Lymphocytes % (Manual) Eosinophils % (Manual) Seg Neutrophils # Lymphocytes # (Manual) Eosinophils # (Manual) PT INR D-Dimer POC ABG pH POC ABG pCO2 POC ABG pO2 ABG pO2 ABG HCO3 ABG Base Excess ABG Hemoglobin Oxyhemoglobin Sodium Potassium Chloride Carbon Dioxide BUN Creatinine Glucose POC Glucose 121 H 127 H 159 H Calcium Phosphorus Magnesium ALT Alkaline Phosphatase Total Creatine Kinase CK-MB (CK-2) Rel Index Troponin T Albumin LDL Cholesterol Direct PTH Intact Salicylates Acetaminophen Crossmatch 04/17/19 04/17/19 04/18/19 18:27 23:36 07:19 WBC RBC 3.49 L Hgb 9.0 L Hct 29.9 L MCH 26 L MCHC 30 L RDW 20.0 H Lymph % (Auto) [place] % (Auto) Eos % (Auto) Lymph # [place] # Eos # Seg Neutrophils % Seg Neuts % (Manual) Lymphocytes % (Manual) Eosinophils % (Manual) Seg Neutrophils # Lymphocytes # (Manual) Eosinophils # (Manual) PT INR D-Dimer POC ABG pH POC ABG pCO2 POC ABG pO2 ABG pO2 ABG HCO3 ABG Base Excess ABG Hemoglobin Oxyhemoglobin Sodium Potassium Chloride Carbon Dioxide BUN Creatinine Glucose POC Glucose 109 H 134 H Calcium Phosphorus Magnesium ALT Alkaline Phosphatase Total Creatine Kinase CK-MB (CK-2) Rel Index Troponin T Albumin LDL Cholesterol Direct PTH Intact Salicylates Acetaminophen Crossmatch 04/18/19 04/18/19 04/18/19 07:19 12:16 17:09 WBC RBC Hgb Hct MCH MCHC RDW Lymph % (Auto) [place] % (Auto) Eos % (Auto) Lymph # [place] # Eos # Seg Neutrophils % Seg Neuts % (Manual) Lymphocytes % (Manual) Eosinophils % (Manual) Seg Neutrophils # Lymphocytes # (Manual) Eosinophils # (Manual) PT INR D-Dimer POC ABG pH POC ABG pCO2 POC ABG pO2 ABG pO2 ABG HCO3 ABG Base Excess ABG Hemoglobin Oxyhemoglobin Sodium Potassium Chloride Carbon Dioxide BUN 41 H Creatinine 2.9 H Glucose 122 H POC Glucose 125 H 131 H Calcium Phosphorus Magnesium ALT Alkaline Phosphatase Total Creatine Kinase CK-MB (CK-2) Rel Index Troponin T Albumin LDL Cholesterol Direct PTH Intact Salicylates Acetaminophen Crossmatch 04/18/19 04/19/19 04/19/19 23:57 05:55 11:35 WBC RBC Hgb Hct MCH MCHC RDW Lymph % (Auto) [place] % (Auto) Eos % (Auto) Lymph # [place] # Eos # Seg Neutrophils % Seg Neuts % (Manual) Lymphocytes % (Manual) Eosinophils % (Manual) Seg Neutrophils # Lymphocytes # (Manual) Eosinophils # (Manual) PT INR D-Dimer POC ABG pH POC ABG pCO2 POC ABG pO2 ABG pO2 ABG HCO3 ABG Base Excess ABG Hemoglobin Oxyhemoglobin Sodium Potassium Chloride Carbon Dioxide BUN Creatinine Glucose POC Glucose 159 H 144 H 177 H Calcium Phosphorus Magnesium ALT Alkaline Phosphatase Total Creatine Kinase CK-MB (CK-2) Rel Index Troponin T Albumin LDL Cholesterol Direct PTH Intact Salicylates Acetaminophen Crossmatch 04/19/19 04/20/19 04/20/19 16:36 02:05 06:28 WBC RBC Hgb Hct MCH MCHC RDW Lymph % (Auto) [place] % (Auto) Eos % (Auto) Lymph # [place] # Eos # Seg Neutrophils % Seg Neuts % (Manual) Lymphocytes % (Manual) Eosinophils % (Manual) Seg Neutrophils # Lymphocytes # (Manual) Eosinophils # (Manual) PT INR D-Dimer POC ABG pH POC ABG pCO2 POC ABG pO2 ABG pO2 ABG HCO3 ABG Base Excess ABG Hemoglobin Oxyhemoglobin Sodium Potassium Chloride Carbon Dioxide BUN Creatinine Glucose POC Glucose 134 H 142 H 132 H Calcium Phosphorus Magnesium ALT Alkaline Phosphatase Total Creatine Kinase CK-MB (CK-2) Rel Index Troponin T Albumin LDL Cholesterol Direct PTH Intact Salicylates Acetaminophen Crossmatch 04/20/19 12:37 WBC RBC Hgb Hct MCH MCHC RDW Lymph % (Auto) [place] % (Auto) Eos % (Auto) Lymph # [place] # Eos # Seg Neutrophils % Seg Neuts % (Manual) Lymphocytes % (Manual) Eosinophils % (Manual) Seg Neutrophils # Lymphocytes # (Manual) Eosinophils # (Manual) PT INR D-Dimer POC ABG pH POC ABG pCO2 POC ABG pO2 ABG pO2 ABG HCO3 ABG Base Excess ABG Hemoglobin Oxyhemoglobin Sodium Potassium Chloride Carbon Dioxide BUN Creatinine Glucose POC Glucose 163 H Calcium Phosphorus Magnesium ALT Alkaline Phosphatase Total Creatine Kinase CK-MB (CK-2) Rel Index Troponin T Albumin LDL Cholesterol Direct PTH Intact Salicylates Acetaminophen Crossmatch Chest x-ray: report reviewed, image reviewed (near resolution of bilateral infiltrates, sue. improvement in KEON pneumonia)
[2019-04-21] MEDS: INSULIN REGULAR, HUMAN 100 UNITS/1 ML SUB-Q SCH ×3 (06:08→17:15)
[2019-04-21] MEDS: IPRATROPIUM/ALBUTEROL SULFATE 3 ML AMPUL.NEB IH SCH ×3 (08:10→19:21)
[2019-04-21] MEDS: SERTRALINE 100 MG TAB PO SCH (10:21)
[2019-04-21] MEDS: risperiDONE 1 MG TAB PO SCH (10:21)
[2019-04-21] MEDS: FAMOTIDINE 20 MG TAB PO SCH (10:21)
[2019-04-21] MEDS: SODIUM HYPOCHLORITE, DAKIN'S 1/2 STRENGTH (0.25%) 473 ML TOPICAL SOLN TP SCH ×2 (10:22→22:25)
--- NOTE | 2019-04-21 10:22 | Progress Note ---
Assessment and Plan - Patient Problems (1) ESRD (end stage renal disease) on dialysis Current Visit: Yes Status: Chronic Plan to address problem: End stage renal disease : - access: Left arm AVG Continue hemodialysis Saturday (2) Diabetes mellitus, insulin dependent (IDDM), uncontrolled Current Visit: No Status: Acute Plan to address problem: DM type II uncontrolled Monitor Fingersticks (3) Anemia in chronic kidney disease, on chronic dialysis Current Visit: Yes Status: Acute Plan to address problem: Anemia of chronic kidney disease hemoglobin 9.0g/dl We'll give Epogen Monitor CBC (4) Hypertension Current Visit: Yes Status: Acute Qualifiers: Hypertension type: essential hypertension Qualified Code(s): I10 - Essential (primary) hypertension Plan to address problem: Hypertension controlled currently on Prn antihypertensives. Monitor blood pressure (5) Acute hypoxemic respiratory failure Current Visit: Yes Status: Acute Plan to address problem: Patient has tracheostomy with Tpiece in place. Chest x-ray reviewed with patchy opacities upper lung lynn Cultures obtained with Acinetobacter completed treatment with antibiotics. Ultrafiltration limited by hypotension repeat CXR with improvement in lung aeration. Subjective Principal diagnosis: Respiratory failure, acute on chronic systolic HF, ESRD Interval history: 63 year old Gentleman with medical history significant for ESRD on hemodialysis at [facility] on Saturday, Saturday and Saturday. via a left arm AVG admitted with acute respiratory failure; and hypotension prolonged hospital course received antibiotics for acinetobacter infection and s/p prolonged need for ventilation requiring Tracheostomy with T piece attached. Patient seen today remains on a T piece apparatus tolerated HD on 04/20 with a 1L removed. Objective - Vital Signs Vital signs: Vital Signs - 12hr 04/20/19 04/21/19 04/21/19 23:10 00:09 04:09 Temperature 98.5 F 98.5 F Pulse Rate 102 H 95 H Pulse Rate [ Posterior Bilateral Throughout] Respiratory 18 19 Rate Respiratory Rate [Posterior Bilateral Throughout] Blood Pressure 119/57 134/54 O2 Sat by Pulse 97 100 100 Oximetry O2 Sat by Pulse Oximetry [ Assessment] 04/21/19 04/21/19 04/21/19 08:00 08:10 08:20 Temperature 97.5 F L Pulse Rate Pulse Rate [ 90 Posterior Bilateral Throughout] Respiratory 18 Rate Respiratory 17 Rate [Posterior Bilateral Throughout] Blood Pressure 114/43 O2 Sat by Pulse Oximetry O2 Sat by Pulse 97 Oximetry [ Assessment] 04/21/19 08:31 Temperature Pulse Rate Pulse Rate [ Posterior Bilateral Throughout] Respiratory Rate Respiratory Rate [Posterior Bilateral Throughout] Blood Pressure O2 Sat by Pulse 96 Oximetry O2 Sat by Pulse Oximetry [ Assessment] - General Appearance General appearance: well-developed, well-nourished EENT: ATNC, PERRL, mucous membranes moist Neck: no JVD Respiratory: Present: Clear to Ascultation Cardiology: regular, S1S2 Gastrointestinal: normal, normoactive bowel sounds Integumentary: no rash Neurologic: alert and oriented x3, CN 3-12 intact Musculoskeletal: deferred Psychiatric: mood/affect appropriate - Lab 04/18/19 07:19 04/18/19 07:19 Most recent lab results ABG pH 7.424 pH Units (7.350-7.450) 03/19/19 04:23 ABG pCO2 48.0 mm Hg 03/19/19 04:23 ABG pO2 78.3 mm Hg (80.0-90.0) L 03/19/19 04:23 ABG HCO3 30.7 mmol/L (20.0-26.0) H 03/19/19 04:23 ABG O2 Saturation 97.0 % (95.0-99.0) 03/19/19 04:23 Calcium 10.1 mg/dL (8.4-10.2) 04/18/19 07:19 Phosphorus 4.30 mg/dL (2.5-4.5) D 03/31/19 10:26 Magnesium 2.70 mg/dL (1.7-2.3) H 03/30/19 10:13 - Imaging Chest x-ray: image reviewed Medications & Allergies - Medications Allergies/Adverse Reactions: Allergies haloperidol [From Haldol] Adverse Reaction (Verified 03/13/18 12:10) Unknown haloperidol lactate [From Haldol] Adverse Reaction (Verified 03/13/18 12:10) Unknown Home Medications: Home Medications Medication Instructions Recorded Confirmed Last Taken Type risperiDONE [RisperDAL] 1 mg PO QAM 03/13/18 02/21/19 Unknown History Sertraline [Zoloft] 100 mg PO QDAY 08/26/18 02/21/19 Unknown History Polyethylene Glycol 3350 [Miralax 17 gm PO QDAY #30 packet 11/05/18 02/21/19 Unknown Rx 3350] Aspirin EC [Halfprin EC] 81 mg PO DAILY #30 11/19/18 02/21/19 Unknown Rx Docusate Sodium [Colace CAP] 100 mg PO BID #60 11/19/18 02/21/19 Unknown Rx Folic Acid [Folvite] 1 mg PO DAILY #30 tab 11/19/18 02/21/19 Unknown Rx Famotidine [Pepcid] 20 mg PO DAILY tablet 12/08/18 02/21/19 Unknown Rx Gabapentin [Neurontin] 100 mg PO QHS capsule 12/08/18 02/21/19 Unknown Rx Metoprolol [Lopressor TAB] 50 mg PO BID 30 Days tablet 12/08/18 02/21/19 Unknown Rx Sevelamer Carbonate [Renvela] 800 mg PO TIDWM tablet 12/08/18 02/21/19 Unknown Rx hydrALAZINE [Apresoline TAB] 100 mg PO Q8HR #120 tablet 12/08/18 02/21/19 Unknown Rx Acetaminophen [Acetaminophen TAB] 650 mg PO Q12H PRN 12/15/18 02/21/19 Unknown History Glucagon,Human Recombinant 1 mg IJ Q15MIN PRN 12/15/18 02/21/19 Unknown History [Glucagon Emergency Kit] Insulin Aspart [NovoLOG 100 See Protocol SQ QWEEK 12/15/18 02/21/19 Unknown History UNITS/ML VIAL] Active Medications: Generic Name Dose Route Start Last Admin Trade Name Freq PRN Reason Stop Dose Admin Albuterol/Ipratropium 1 ampul 02/24/19 20:00 04/21/19 08:10 Duoneb *Not For Prn Use* IH 1 ampul TIDRT SANCHEZ Administration Lipase/Protease/Amylase 1 each 04/10/19 15:16 Pancrejewel Barrientos 10,500 Unit FEEDTUBE PRN PRN For Clogged Feeding Tube Epoetin Solitario 20,000 unit 03/24/19 11:17 04/20/19 14:00 Procrit IV 20,000 unit UMA PRN Administration hemodialysis Famotidine 20 mg 02/23/19 10:00 04/20/19 09:04 Pepcid PO 20 mg DAILY SANCHEZ Administration Hydrophilic Ointment 1 applic 02/21/19 18:24 03/05/19 08:16 Vaseline Lip Therapy TP 1 applic Q2HR PRN Administration Dry Lips Sodium Chloride 100 mls @ 999 mls/hr 02/26/19 09:00 Nacl 0.9% IV UMA PRN Hypotension Insulin Human Regular 0 units 02/26/19 12:00 04/21/19 06:08 Humulin R SUB-Q Not Given Q6HR SANCHEZ Protocol Metoprolol Tartrate 2.5 mg 02/28/19 12:06 03/15/19 05:15 Lopressor IV 2.5 mg Q4HR PRN Administration Tachycardia Multi-Ingred Cream/Lotion/Oil/Oint 1 applic 02/21/19 18:24 04/16/19 14:31 Artificial Tears Ophth Oint OU 1 applic Q4HR PRN Administration Dry Eye(s) Risperidone 1 mg 02/25/19 13:00 04/20/19 09:04 Risperdal PO 1 mg DAILY SANCHEZ Administration Sertraline HCl 100 mg 02/25/19 13:00 04/20/19 09:04 Zoloft PO 100 mg DAILY SANCHEZ Administration Simple Syrup 15 ml 04/10/19 15:16 Simple Syrup FEEDTUBE PRN PRN Hypoglycemia Simple Syrup 30 ml 04/10/19 15:16 Simple Syrup FEEDTUBE PRN PRN Hypoglycemia Sodium Bicarbonate 325 mg 04/10/19 15:16 Sodium Bicarbonate FEEDTUBE PRN PRN For Clogged Feeding Tube Sodium Hypochlorite 1 applic 04/01/19 13:00 04/20/19 21:48 Dakin's Half Strength TP 0.25 applicatio BID SANCHEZ Administration
--- NOTE | 2019-04-21 13:49 | Progress Note ---
Assessment and Plan Imp: 1. Acute encephalopathy, probably metabolic or toxic, resolved 2. A/C systolic CHF 3. Dilated CMP 4. Pulm HTN 5. ESRD 6. RUL atelectasis, probably mucous plugging -> resolved 7. KEON pneumonia, resolved Rec: 1. Chest PT, Duonebs 2. Tolerating Tpiece; monitor; trach is permanent but will try downsizing him to a size 6 cuffed + begin PMV trials thereafter 3. Avoid sedatives; resumed psych meds 4. DVT and GI PPx 5. TFs per PEG 6. HD per renal 7. Agree w/ DNR as per family wishes although hospice is the most appropriate course for him Await placement No family present Subjective Date of service: 04/21/19 Principal diagnosis: Respiratory failure, acute on chronic systolic HF, ESRD Interval history: No events. Mentation near usual poor baseline. Does response to basic questions but cannot give hx. On 28% per Tpiece. Active Medications Albuterol/Ipratropium (Duoneb *Not For Prn Use*) 1 ampul IH TIDRT [facility] Last Admin: 04/21/19 08:10 Dose: 1 ampul Documented by: Lipase/Protease/Amylase (Pancrejewel Barrientos 10,500 Unit) 1 each FEEDTUBE PRN PRN PRN Reason: For Clogged Feeding Tube Epoetin Solitario (Procrit) 20,000 unit IV UMA PRN PRN Reason: hemodialysis Last Admin: 04/20/19 14:00 Dose: 20,000 unit Documented by: Famotidine (Pepcid) 20 mg PO DAILY [facility] Last Admin: 04/21/19 10:21 Dose: 20 mg Documented by: Hydrophilic Ointment (Vaseline Lip Therapy) 1 applic TP Q2HR PRN PRN Reason: Dry Lips Last Admin: 03/05/19 08:16 Dose: 1 applic Documented by: Sodium Chloride (Nacl 0.9%) 100 mls @ 999 mls/hr IV UMA PRN PRN Reason: Hypotension Insulin Human Regular (Humulin R) 0 units SUB-Q Q6HR [facility]; Protocol Last Admin: 04/21/19 12:19 Dose: Not Given Documented by: Metoprolol Tartrate (Lopressor) 2.5 mg IV Q4HR PRN PRN Reason: Tachycardia Last Admin: 03/15/19 05:15 Dose: 2.5 mg Documented by: Multi-Ingred Cream/Lotion/Oil/Oint (Artificial Tears Ophth Oint) 1 applic OU Q4HR PRN PRN Reason: Dry Eye(s) Last Admin: 04/16/19 14:31 Dose: 1 applic Documented by: Risperidone (Risperdal) 1 mg PO DAILY [facility] Last Admin: 04/21/19 10:21 Dose: 1 mg Documented by: Sertraline HCl (Zoloft) 100 mg PO DAILY [facility] Last Admin: 04/21/19 10:21 Dose: 100 mg Documented by: Simple Syrup (Simple Syrup) 15 ml FEEDTUBE PRN PRN PRN Reason: Hypoglycemia Simple Syrup (Simple Syrup) 30 ml FEEDTUBE PRN PRN PRN Reason: Hypoglycemia Sodium Bicarbonate (Sodium Bicarbonate) 325 mg FEEDTUBE PRN PRN PRN Reason: For Clogged Feeding Tube Sodium Hypochlorite (Dakin's Half Strength) 1 applic TP BID [facility] Last Admin: 04/21/19 10:22 Dose: 1 applicatio Documented by: Objective Vital Signs - 12hr 04/21/19 04/21/19 04/21/19 04:09 08:00 08:10 Temperature 98.5 F Pulse Rate 95 H Pulse Rate [ Apical] Pulse Rate [ Left Dorsalis Pedis] Pulse Rate [ Left Radial] Pulse Rate [ 90 Posterior Bilateral Throughout] Pulse Rate [ Right Dorsalis Pedis] Pulse Rate [ Right Radial] Respiratory 19 Rate Respiratory 17 Rate [Posterior Bilateral Throughout] Blood Pressure 134/54 O2 Sat by Pulse 100 Oximetry O2 Sat by Pulse 97 Oximetry [ Assessment] 04/21/19 04/21/19 04/21/19 08:20 08:31 10:00 Temperature 97.5 F L Pulse Rate 94 H Pulse Rate [ 97 H Apical] Pulse Rate [ 97 H Left Dorsalis Pedis] Pulse Rate [ 97 H Left Radial] Pulse Rate [ Posterior Bilateral Throughout] Pulse Rate [ 97 H Right Dorsalis Pedis] Pulse Rate [ 97 H Right Radial] Respiratory 18 22 Rate Respiratory Rate [Posterior Bilateral Throughout] Blood Pressure 114/43 O2 Sat by Pulse 96 98 Oximetry O2 Sat by Pulse Oximetry [ Assessment] Constitutional: no acute distress, alert Eyes: non-icteric ENT: oropharynx moist Neck: supple Effort: normal Ascultation: Bilateral: other (coarse BS bilaterally) Cardiovascular: regular rate and rhythm (no mrg) Gastrointestinal: normoactive bowel sounds, soft, non-tender, non-distended, oth er (ostomy in place, brown stool) Extremities: no cyanosis, no edema, pink and warm Neurologic: other (mild weakness LUE, o/w nonfocal) Psychiatric: other (unable to assess) CBC and BMP: 04/18/19 07:19 04/18/19 07:19 ABG, PT/INR, D-dimer: ABG POC ABG pH 7.510 (7.35-7.45) H 03/18/19 06:38 ABG pH 7.424 pH Units (7.350-7.450) 03/19/19 04:23 POC ABG pCO2 38.9 (35-45) 03/18/19 06:38 ABG pCO2 48.0 mm Hg 03/19/19 04:23 POC ABG pO2 164 (80-105) H 03/18/19 06:38 ABG pO2 78.3 mm Hg (80.0-90.0) L 03/19/19 04:23 POC ABG HCO3 31.0 (22-26 mml/L) 03/18/19 06:38 POC ABG Total CO2 32 (23-27mmol/L) 03/18/19 06:38 POC ABG O2 Sat 100 03/18/19 06:38 ABG O2 Saturation 97.0 % (95.0-99.0) 03/19/19 04:23 PT/INR, D-dimer PT 16.3 Sec. (12.2-14.9) H 03/01/19 09:39 INR 1.35 (0.87-1.13) H 03/01/19 09:39 D-Dimer 2987.82 ng/mlDDU (0-234) H 02/22/19 05:54 Abnormal lab findings: Abnormal Labs 02/21/19 02/21/19 02/21/19 18:30 18:30 18:30 WBC RBC 3.26 L Hgb 8.8 L Hct 29.0 L MCH 27 L MCHC 30 L RDW 19.1 H Lymph % (Auto) 6.1 L [place] % (Auto) Eos % (Auto) Lymph # 0.4 L [place] # Eos # Seg Neutrophils % 86.2 H Seg Neuts % (Manual) Lymphocytes % (Manual) Eosinophils % (Manual) Seg Neutrophils # Lymphocytes # (Manual) Eosinophils # (Manual) PT INR D-Dimer POC ABG pH POC ABG pCO2 POC ABG pO2 ABG pO2 ABG HCO3 ABG Base Excess ABG Hemoglobin Oxyhemoglobin Sodium 133 L Potassium 3.3 L Chloride 93.1 L Carbon Dioxide 33 H BUN Creatinine Glucose 161 H POC Glucose Calcium Phosphorus Magnesium ALT Alkaline Phosphatase 136 H Total Creatine Kinase 37 L CK-MB (CK-2) Rel Index Troponin T 0.192 H* Albumin 2.4 L LDL Cholesterol Direct 36 L PTH Intact Salicylates Acetaminophen Crossmatch 02/21/19 02/21/19 02/21/19 18:42 20:04 20:04 WBC RBC Hgb Hct MCH MCHC RDW Lymph % (Auto) [place] % (Auto) Eos % (Auto) Lymph # [place] # Eos # Seg Neutrophils % Seg Neuts % (Manual) Lymphocytes % (Manual) Eosinophils % (Manual) Seg Neutrophils # Lymphocytes # (Manual) Eosinophils # (Manual) PT INR D-Dimer POC ABG pH POC ABG pCO2 56.7 H POC ABG pO2 291 H ABG pO2 ABG HCO3 ABG Base Excess ABG Hemoglobin Oxyhemoglobin Sodium Potassium Chloride Carbon Dioxide BUN Creatinine Glucose POC Glucose Calcium Phosphorus Magnesium ALT Alkaline Phosphatase Total Creatine Kinase CK-MB (CK-2) Rel Index Troponin T Albumin LDL Cholesterol Direct PTH Intact Salicylates < 0.3 L Acetaminophen < 5.0 L Crossmatch 02/21/19 02/22/19 02/22/19 22:35 03:42 03:42 WBC RBC 3.20 L Hgb 8.8 L Hct 27.6 L MCH MCHC RDW 18.9 H Lymph % (Auto) 7.4 L [place] % (Auto) Eos % (Auto) Lymph # 0.7 L [place] # Eos # Seg Neutrophils % 84.7 H Seg Neuts % (Manual) Lymphocytes % (Manual) Eosinophils % (Manual) Seg Neutrophils # Lymphocytes # (Manual) Eosinophils # (Manual) PT INR D-Dimer POC ABG pH POC ABG pCO2 POC ABG pO2 ABG pO2 ABG HCO3 ABG Base Excess ABG Hemoglobin Oxyhemoglobin Sodium 134 L Potassium 2.6 L* D Chloride Carbon Dioxide BUN Creatinine Glucose POC Glucose Calcium Phosphorus Magnesium ALT Alkaline Phosphatase Total Creatine Kinase CK-MB (CK-2) Rel Index 5.2 H Troponin T 0.202 H* Albumin LDL Cholesterol Direct PTH Intact Salicylates Acetaminophen Crossmatch 02/22/19 02/22/19 02/22/19 03:42 05:54 09:04 WBC RBC Hgb Hct MCH MCHC RDW Lymph % (Auto) [place] % (Auto) Eos % (Auto) Lymph # [place] # Eos # Seg Neutrophils % Seg Neuts % (Manual) Lymphocytes % (Manual) Eosinophils % (Manual) Seg Neutrophils # Lymphocytes # (Manual) Eosinophils # (Manual) PT INR D-Dimer 2987.82 H POC ABG pH 7.451 H POC ABG pCO2 POC ABG pO2 ABG pO2 ABG HCO3 ABG Base Excess ABG Hemoglobin Oxyhemoglobin Sodium Potassium Chloride Carbon Dioxide BUN Creatinine Glucose POC Glucose Calcium Phosphorus Magnesium ALT Alkaline Phosphatase Total Creatine Kinase CK-MB (CK-2) Rel Index 5.7 H Troponin T 0.193 H* Albumin LDL Cholesterol Direct PTH Intact Salicylates Acetaminophen Crossmatch 02/22/19 02/22/19 02/23/19 10:36 23:56 00:52 WBC RBC Hgb Hct MCH MCHC RDW Lymph % (Auto) [place] % (Auto) Eos % (Auto) Lymph # [place] # Eos # Seg Neutrophils % Seg Neuts % (Manual) Lymphocytes % (Manual) Eosinophils % (Manual) Seg Neutrophils # Lymphocytes # (Manual) Eosinophils # (Manual) PT INR D-Dimer POC ABG pH POC ABG pCO2 POC ABG pO2 ABG pO2 ABG HCO3 ABG Base Excess ABG Hemoglobin Oxyhemoglobin Sodium Potassium 3.1 L Chloride Carbon Dioxide BUN Creatinine Glucose POC Glucose 58 L 111 H Calcium Phosphorus Magnesium ALT Alkaline Phosphatase Total Creatine Kinase CK-MB (CK-2) Rel Index Troponin T Albumin LDL Cholesterol Direct PTH Intact Salicylates Acetaminophen Crossmatch 02/23/19 02/23/19 02/23/19 05:00 06:35 14:26 WBC RBC Hgb Hct MCH MCHC RDW Lymph % (Auto) [place] % (Auto) Eos % (Auto) Lymph # [place] # Eos # Seg Neutrophils % Seg Neuts % (Manual) Lymphocytes % (Manual) Eosinophils % (Manual) Seg Neutrophils # Lymphocytes # (Manual) Eosinophils # (Manual) PT INR D-Dimer POC ABG pH POC ABG pCO2 POC ABG pO2 ABG pO2 ABG HCO3 ABG Base Excess ABG Hemoglobin Oxyhemoglobin Sodium 135 L Potassium 3.1 L Chloride Carbon Dioxide BUN 21 H Creatinine 2.0 H Glucose 57 L POC Glucose 64 L 62 L Calcium Phosphorus Magnesium ALT Alkaline Phosphatase Total Creatine Kinase CK-MB (CK-2) Rel Index Troponin T Albumin LDL Cholesterol Direct PTH Intact Salicylates Acetaminophen Crossmatch 02/24/19 02/24/19 02/24/19 02:11 04:12 04:55 WBC RBC 2.84 L Hgb 7.8 L Hct 24.5 L MCH MCHC RDW 19.5 H Lymph % (Auto) [place] % (Auto) Eos % (Auto) Lymph # [place] # Eos # Seg Neutrophils % Seg Neuts % (Manual) Lymphocytes % (Manual) Eosinophils % (Manual) Seg Neutrophils # Lymphocytes # (Manual) Eosinophils # (Manual) PT INR D-Dimer POC ABG pH 7.511 H POC ABG pCO2 33.9 L POC ABG pO2 62 L ABG pO2 ABG HCO3 ABG Base Excess ABG Hemoglobin Oxyhemoglobin Sodium Potassium Chloride Carbon Dioxide BUN Creatinine Glucose POC Glucose 69 L Calcium Phosphorus Magnesium ALT Alkaline Phosphatase Total Creatine Kinase CK-MB (CK-2) Rel Index Troponin T Albumin LDL Cholesterol Direct PTH Intact Salicylates Acetaminophen Crossmatch 02/24/19 02/24/19 02/25/19 04:55 05:41 04:45 WBC RBC Hgb Hct MCH MCHC RDW Lymph % (Auto) [place] % (Auto) Eos % (Auto) Lymph # [place] # Eos # Seg Neutrophils % Seg Neuts % (Manual) Lymphocytes % (Manual) Eosinophils % (Manual) Seg Neutrophils # Lymphocytes # (Manual) Eosinophils # (Manual) PT INR D-Dimer POC ABG pH 7.466 H POC ABG pCO2 POC ABG pO2 75 L ABG pO2 ABG HCO3 ABG Base Excess ABG Hemoglobin Oxyhemoglobin Sodium Potassium Chloride Carbon Dioxide BUN Creatinine 1.8 H Glucose 73 L POC Glucose 127 H Calcium Phosphorus Magnesium ALT Alkaline Phosphatase Total Creatine Kinase CK-MB (CK-2) Rel Index Troponin T Albumin LDL Cholesterol Direct PTH Intact Salicylates Acetaminophen Crossmatch 02/25/19 02/25/19 02/26/19 16:34 21:33 03:45 WBC RBC 2.96 L Hgb 8.0 L Hct 25.8 L MCH 27 L MCHC 31 L RDW 20.0 H Lymph % (Auto) [place] % (Auto) Eos % (Auto) Lymph # [place] # Eos # Seg Neutrophils % Seg Neuts % (Manual) Lymphocytes % (Manual) Eosinophils % (Manual) Seg Neutrophils # Lymphocytes # (Manual) Eosinophils # (Manual) PT INR D-Dimer POC ABG pH POC ABG pCO2 POC ABG pO2 ABG pO2 ABG HCO3 ABG Base Excess ABG Hemoglobin Oxyhemoglobin Sodium Potassium Chloride Carbon Dioxide BUN Creatinine Glucose POC Glucose 141 H 106 H Calcium Phosphorus Magnesium ALT Alkaline Phosphatase Total Creatine Kinase CK-MB (CK-2) Rel Index Troponin T Albumin LDL Cholesterol Direct PTH Intact Salicylates Acetaminophen Crossmatch 02/26/19 02/26/19 02/26/19 03:45 04:13 07:53 WBC RBC Hgb Hct MCH MCHC RDW Lymph % (Auto) [place] % (Auto) Eos % (Auto) Lymph # [place] # Eos # Seg Neutrophils % Seg Neuts % (Manual) Lymphocytes % (Manual) Eosinophils % (Manual) Seg Neutrophils # Lymphocytes # (Manual) Eosinophils # (Manual) PT INR D-Dimer POC ABG pH 7.470 H POC ABG pCO2 POC ABG pO2 ABG pO2 ABG HCO3 ABG Base Excess ABG Hemoglobin Oxyhemoglobin Sodium Potassium Chloride Carbon Dioxide BUN Creatinine 1.8 H Glucose POC Glucose 110 H Calcium Phosphorus Magnesium ALT Alkaline Phosphatase Total Creatine Kinase CK-MB (CK-2) Rel Index Troponin T Albumin LDL Cholesterol Direct PTH Intact Salicylates Acetaminophen Crossmatch 02/26/19 02/26/19 02/27/19 11:56 17:43 00:12 WBC RBC Hgb Hct MCH MCHC RDW Lymph % (Auto) [place] % (Auto) Eos % (Auto) Lymph # [place] # Eos # Seg Neutrophils % Seg Neuts % (Manual) Lymphocytes % (Manual) Eosinophils % (Manual) Seg Neutrophils # Lymphocytes # (Manual) Eosinophils # (Manual) PT INR D-Dimer POC ABG pH POC ABG pCO2 POC ABG pO2 ABG pO2 ABG HCO3 ABG Base Excess ABG Hemoglobin Oxyhemoglobin Sodium Potassium Chloride Carbon Dioxide BUN Creatinine Glucose POC Glucose 112 H 127 H 127 H Calcium Phosphorus Magnesium ALT Alkaline Phosphatase Total Creatine Kinase CK-MB (CK-2) Rel Index Troponin T Albumin LDL Cholesterol Direct PTH Intact Salicylates Acetaminophen Crossmatch 02/27/19 02/27/19 02/27/19 04:35 13:15 18:02 WBC RBC Hgb Hct MCH MCHC RDW Lymph % (Auto) [place] % (Auto) Eos % (Auto) Lymph # [place] # Eos # Seg Neutrophils % Seg Neuts % (Manual) Lymphocytes % (Manual) Eosinophils % (Manual) Seg Neutrophils # Lymphocytes # (Manual) Eosinophils # (Manual) PT INR D-Dimer POC ABG pH 7.483 H POC ABG pCO2 POC ABG pO2 61 L ABG pO2 ABG HCO3 ABG Base Excess ABG Hemoglobin Oxyhemoglobin Sodium Potassium Chloride Carbon Dioxide BUN Creatinine Glucose POC Glucose 143 H 106 H Calcium Phosphorus Magnesium ALT Alkaline Phosphatase Total Creatine Kinase CK-MB (CK-2) Rel Index Troponin T Albumin LDL Cholesterol Direct PTH Intact Salicylates Acetaminophen Crossmatch 02/28/19 02/28/19 02/28/19 05:50 11:59 17:52 WBC RBC Hgb Hct MCH MCHC RDW Lymph % (Auto) [place] % (Auto) Eos % (Auto) Lymph # [place] # Eos # Seg Neutrophils % Seg Neuts % (Manual) Lymphocytes % (Manual) Eosinophils % (Manual) Seg Neutrophils # Lymphocytes # (Manual) Eosinophils # (Manual) PT INR D-Dimer POC ABG pH POC ABG pCO2 POC ABG pO2 ABG pO2 ABG HCO3 ABG Base Excess ABG Hemoglobin Oxyhemoglobin Sodium Potassium Chloride Carbon Dioxide BUN Creatinine Glucose POC Glucose 134 H 128 H 142 H Calcium Phosphorus Magnesium ALT Alkaline Phosphatase Total Creatine Kinase CK-MB (CK-2) Rel Index Troponin T Albumin LDL Cholesterol Direct PTH Intact Salicylates Acetaminophen Crossmatch 02/28/19 03/01/19 03/01/19 23:13 05:40 09:39 WBC RBC Hgb Hct MCH MCHC RDW Lymph % (Auto) [place] % (Auto) Eos % (Auto) Lymph # [place] # Eos # Seg Neutrophils % Seg Neuts % (Manual) Lymphocytes % (Manual) Eosinophils % (Manual) Seg Neutrophils # Lymphocytes # (Manual) Eosinophils # (Manual) PT 16.3 H INR 1.35 H D-Dimer POC ABG pH POC ABG pCO2 POC ABG pO2 ABG pO2 ABG HCO3 ABG Base Excess ABG Hemoglobin Oxyhemoglobin Sodium Potassium Chloride Carbon Dioxide BUN Creatinine Glucose POC Glucose 112 H 111 H Calcium Phosphorus Magnesium ALT Alkaline Phosphatase Total Creatine Kinase CK-MB (CK-2) Rel Index Troponin T Albumin LDL Cholesterol Direct PTH Intact Salicylates Acetaminophen Crossmatch 03/01/19 03/01/19 03/01/19 11:56 13:54 17:59 WBC RBC Hgb Hct MCH MCHC RDW Lymph % (Auto) [place] % (Auto) Eos % (Auto) Lymph # [place] # Eos # Seg Neutrophils % Seg Neuts % (Manual) Lymphocytes % (Manual) Eosinophils % (Manual) Seg Neutrophils # Lymphocytes # (Manual) Eosinophils # (Manual) PT INR D-Dimer POC ABG pH POC ABG pCO2 POC ABG pO2 ABG pO2 ABG HCO3 ABG Base Excess ABG Hemoglobin Oxyhemoglobin Sodium Potassium Chloride Carbon Dioxide BUN 33 H Creatinine 2.8 H D Glucose 176 H POC Glucose 199 H 147 H Calcium Phosphorus Magnesium ALT Alkaline Phosphatase Total Creatine Kinase CK-MB (CK-2) Rel Index Troponin T Albumin LDL Cholesterol Direct PTH Intact Salicylates Acetaminophen Crossmatch 03/02/19 03/02/19 03/02/19 05:15 05:15 05:15 WBC RBC 2.73 L Hgb 7.4 L Hct 23.0 L MCH 27 L MCHC RDW 19.9 H Lymph % (Auto) [place] % (Auto) 7.9 H Eos % (Auto) 7.6 H Lymph # 1.0 L [place] # Eos # 0.5 H Seg Neutrophils % Seg Neuts % (Manual) Lymphocytes % (Manual) Eosinophils % (Manual) Seg Neutrophils # Lymphocytes # (Manual) Eosinophils # (Manual) PT INR D-Dimer POC ABG pH POC ABG pCO2 POC ABG pO2 ABG pO2 ABG HCO3 ABG Base Excess ABG Hemoglobin Oxyhemoglobin Sodium Potassium Chloride Carbon Dioxide BUN 43 H Creatinine 3.2 H Glucose POC Glucose Calcium Phosphorus 2.30 L Magnesium ALT Alkaline Phosphatase Total Creatine Kinase CK-MB (CK-2) Rel Index Troponin T Albumin LDL Cholesterol Direct PTH Intact 267.6 H Salicylates Acetaminophen Crossmatch 03/02/19 03/02/19 03/03/19 12:32 18:20 13:30 WBC RBC Hgb Hct MCH MCHC RDW Lymph % (Auto) [place] % (Auto) Eos % (Auto) Lymph # [place] # Eos # Seg Neutrophils % Seg Neuts % (Manual) Lymphocytes % (Manual) Eosinophils % (Manual) Seg Neutrophils # Lymphocytes # (Manual) Eosinophils # (Manual) PT INR D-Dimer POC ABG pH POC ABG pCO2 POC ABG pO2 ABG pO2 ABG HCO3 ABG Base Excess ABG Hemoglobin Oxyhemoglobin Sodium Potassium Chloride 97.3 L Carbon Dioxide BUN 26 H Creatinine 2.2 H Glucose 73 L POC Glucose 111 H 156 H Calcium Phosphorus Magnesium ALT Alkaline Phosphatase Total Creatine Kinase CK-MB (CK-2) Rel Index Troponin T Albumin LDL Cholesterol Direct PTH Intact Salicylates Acetaminophen Crossmatch 03/04/19 03/04/19 03/04/19 00:02 05:37 05:40 WBC RBC 2.63 L Hgb 7.2 L Hct 22.2 L MCH MCHC RDW 20.2 H Lymph % (Auto) 10.5 L [place] % (Auto) Eos % (Auto) 4.6 H Lymph # 0.7 L [place] # Eos # Seg Neutrophils % 76.9 H Seg Neuts % (Manual) Lymphocytes % (Manual) Eosinophils % (Manual) Seg Neutrophils # Lymphocytes # (Manual) Eosinophils # (Manual) PT INR D-Dimer POC ABG pH POC ABG pCO2 POC ABG pO2 ABG pO2 ABG HCO3 ABG Base Excess ABG Hemoglobin Oxyhemoglobin Sodium Potassium Chloride Carbon Dioxide BUN Creatinine Glucose POC Glucose 136 H 123 H Calcium Phosphorus Magnesium ALT Alkaline Phosphatase Total Creatine Kinase CK-MB (CK-2) Rel Index Troponin T Albumin LDL Cholesterol Direct PTH Intact Salicylates Acetaminophen Crossmatch 03/04/19 03/04/19 03/04/19 05:40 11:39 23:20 WBC RBC Hgb Hct MCH MCHC RDW Lymph % (Auto) [place] % (Auto) Eos % (Auto) Lymph # [place] # Eos # Seg Neutrophils % Seg Neuts % (Manual) Lymphocytes % (Manual) Eosinophils % (Manual) Seg Neutrophils # Lymphocytes # (Manual) Eosinophils # (Manual) PT INR D-Dimer POC ABG pH POC ABG pCO2 POC ABG pO2 ABG pO2 ABG HCO3 ABG Base Excess ABG Hemoglobin Oxyhemoglobin Sodium Potassium Chloride Carbon Dioxide BUN 34 H Creatinine 2.7 H Glucose 114 H POC Glucose 175 H 151 H Calcium Phosphorus Magnesium ALT Alkaline Phosphatase Total Creatine Kinase CK-MB (CK-2) Rel Index Troponin T Albumin LDL Cholesterol Direct PTH Intact Salicylates Acetaminophen Crossmatch 03/05/19 03/05/19 03/05/19 05:37 12:08 17:11 WBC RBC Hgb Hct MCH MCHC RDW Lymph % (Auto) [place] % (Auto) Eos % (Auto) Lymph # [place] # Eos # Seg Neutrophils % Seg Neuts % (Manual) Lymphocytes % (Manual) Eosinophils % (Manual) Seg Neutrophils # Lymphocytes # (Manual) Eosinophils # (Manual) PT INR D-Dimer POC ABG pH POC ABG pCO2 POC ABG pO2 ABG pO2 ABG HCO3 ABG Base Excess ABG Hemoglobin Oxyhemoglobin Sodium Potassium Chloride Carbon Dioxide BUN Creatinine Glucose POC Glucose 134 H 135 H 135 H Calcium Phosphorus Magnesium ALT Alkaline Phosphatase Total Creatine Kinase CK-MB (CK-2) Rel Index Troponin T Albumin LDL Cholesterol Direct PTH Intact Salicylates Acetaminophen Crossmatch 03/06/19 03/06/19 03/06/19 00:16 13:05 18:09 WBC RBC Hgb Hct MCH MCHC RDW Lymph % (Auto) [place] % (Auto) Eos % (Auto) Lymph # [place] # Eos # Seg Neutrophils % Seg Neuts % (Manual) Lymphocytes % (Manual) Eosinophils % (Manual) Seg Neutrophils # Lymphocytes # (Manual) Eosinophils # (Manual) PT INR D-Dimer POC ABG pH POC ABG pCO2 POC ABG pO2 ABG pO2 ABG HCO3 ABG Base Excess ABG Hemoglobin Oxyhemoglobin Sodium Potassium Chloride Carbon Dioxide BUN Creatinine Glucose POC Glucose 117 H 113 H 131 H Calcium Phosphorus Magnesium ALT Alkaline Phosphatase Total Creatine Kinase CK-MB (CK-2) Rel Index Troponin T Albumin LDL Cholesterol Direct PTH Intact Salicylates Acetaminophen Crossmatch 03/07/19 03/08/19 03/08/19 05:25 05:33 16:00 WBC RBC 2.44 L Hgb 6.6 L Hct 20.8 L MCH 27 L MCHC RDW 19.2 H Lymph % (Auto) [place] % (Auto) Eos % (Auto) 8.6 H Lymph # 0.8 L [place] # Eos # 0.5 H Seg Neutrophils % 70.7 H Seg Neuts % (Manual) Lymphocytes % (Manual) Eosinophils % (Manual) Seg Neutrophils # Lymphocytes # (Manual) Eosinophils # (Manual) PT INR D-Dimer POC ABG pH POC ABG pCO2 POC ABG pO2 ABG pO2 ABG HCO3 ABG Base Excess ABG Hemoglobin Oxyhemoglobin Sodium Potassium Chloride Carbon Dioxide BUN Creatinine Glucose POC Glucose 106 H 108 H Calcium Phosphorus Magnesium ALT Alkaline Phosphatase Total Creatine Kinase CK-MB (CK-2) Rel Index Troponin T Albumin LDL Cholesterol Direct PTH Intact Salicylates Acetaminophen Crossmatch 03/08/19 03/08/19 03/08/19 16:00 18:38 Unknown WBC RBC Hgb Hct MCH MCHC RDW Lymph % (Auto) [place] % (Auto) Eos % (Auto) Lymph # [place] # Eos # Seg Neutrophils % Seg Neuts % (Manual) Lymphocytes % (Manual) Eosinophils % (Manual) Seg Neutrophils # Lymphocytes # (Manual) Eosinophils # (Manual) PT INR D-Dimer POC ABG pH POC ABG pCO2 POC ABG pO2 ABG pO2 ABG HCO3 ABG Base Excess ABG Hemoglobin Oxyhemoglobin Sodium Potassium 5.4 H D Chloride Carbon Dioxide BUN 47 H Creatinine 2.6 H Glucose POC Glucose 123 H Calcium Phosphorus Magnesium ALT < 5 L Alkaline Phosphatase Total Creatine Kinase CK-MB (CK-2) Rel Index Troponin T Albumin 2.2 L LDL Cholesterol Direct PTH Intact Salicylates Acetaminophen Crossmatch See Detail 03/09/19 03/09/19 03/09/19 10:48 12:28 13:53 WBC RBC 2.85 L Hgb 7.7 L Hct 24.2 L MCH 27 L MCHC RDW 18.7 H Lymph % (Auto) [place] % (Auto) Eos % (Auto) Lymph # [place] # Eos # Seg Neutrophils % Seg Neuts % (Manual) Lymphocytes % (Manual) Eosinophils % (Manual) Seg Neutrophils # Lymphocytes # (Manual) Eosinophils # (Manual) PT INR D-Dimer POC ABG pH POC ABG pCO2 POC ABG pO2 ABG pO2 ABG HCO3 30.5 H ABG Base Excess 5.6 H ABG Hemoglobin 8.1 L Oxyhemoglobin 93.8 L Sodium Potassium Chloride Carbon Dioxide BUN Creatinine Glucose POC Glucose 114 H Calcium Phosphorus Magnesium ALT Alkaline Phosphatase Total Creatine Kinase CK-MB (CK-2) Rel Index Troponin T Albumin LDL Cholesterol Direct PTH Intact Salicylates Acetaminophen Crossmatch 03/09/19 03/09/19 03/10/19 17:58 23:53 12:01 WBC RBC Hgb Hct MCH MCHC RDW Lymph % (Auto) [place] % (Auto) Eos % (Auto) Lymph # [place] # Eos # Seg Neutrophils % Seg Neuts % (Manual) Lymphocytes % (Manual) Eosinophils % (Manual) Seg Neutrophils # Lymphocytes # (Manual) Eosinophils # (Manual) PT INR D-Dimer POC ABG pH POC ABG pCO2 POC ABG pO2 ABG pO2 ABG HCO3 ABG Base Excess ABG Hemoglobin Oxyhemoglobin Sodium Potassium Chloride Carbon Dioxide BUN Creatinine Glucose POC Glucose 108 H 128 H 144 H Calcium Phosphorus Magnesium ALT Alkaline Phosphatase Total Creatine Kinase CK-MB (CK-2) Rel Index Troponin T Albumin LDL Cholesterol Direct PTH Intact Salicylates Acetaminophen Crossmatch 03/10/19 03/11/19 03/11/19 16:50 00:24 05:02 WBC RBC Hgb Hct MCH MCHC RDW Lymph % (Auto) [place] % (Auto) Eos % (Auto) Lymph # [place] # Eos # Seg Neutrophils % Seg Neuts % (Manual) Lymphocytes % (Manual) Eosinophils % (Manual) Seg Neutrophils # Lymphocytes # (Manual) Eosinophils # (Manual) PT INR D-Dimer POC ABG pH POC ABG pCO2 POC ABG pO2 ABG pO2 ABG HCO3 ABG Base Excess ABG Hemoglobin Oxyhemoglobin Sodium Potassium Chloride Carbon Dioxide BUN Creatinine Glucose POC Glucose 147 H 123 H 120 H Calcium Phosphorus Magnesium ALT Alkaline Phosphatase Total Creatine Kinase CK-MB (CK-2) Rel Index Troponin T Albumin LDL Cholesterol Direct PTH Intact Salicylates Acetaminophen Crossmatch 03/11/19 03/11/19 03/11/19 11:56 12:20 18:37 WBC RBC Hgb Hct MCH MCHC RDW Lymph % (Auto) [place] % (Auto) Eos % (Auto) Lymph # [place] # Eos # Seg Neutrophils % Seg Neuts % (Manual) Lymphocytes % (Manual) Eosinophils % (Manual) Seg Neutrophils # Lymphocytes # (Manual) Eosinophils # (Manual) PT INR D-Dimer POC ABG pH POC ABG pCO2 POC ABG pO2 ABG pO2 ABG HCO3 ABG Base Excess ABG Hemoglobin Oxyhemoglobin Sodium Potassium 5.2 H Chloride Carbon Dioxide BUN Creatinine Glucose POC Glucose 123 H 125 H Calcium Phosphorus Magnesium ALT Alkaline Phosphatase Total Creatine Kinase CK-MB (CK-2) Rel Index Troponin T Albumin LDL Cholesterol Direct PTH Intact Salicylates Acetaminophen Crossmatch 03/11/19 03/12/19 03/12/19 22:52 12:04 18:25 WBC RBC Hgb Hct MCH MCHC RDW Lymph % (Auto) [place] % (Auto) Eos % (Auto) Lymph # [place] # Eos # Seg Neutrophils % Seg Neuts % (Manual) Lymphocytes % (Manual) Eosinophils % (Manual) Seg Neutrophils # Lymphocytes # (Manual) Eosinophils # (Manual) PT INR D-Dimer POC ABG pH POC ABG pCO2 POC ABG pO2 ABG pO2 ABG HCO3 ABG Base Excess ABG Hemoglobin Oxyhemoglobin Sodium Potassium Chloride Carbon Dioxide BUN Creatinine Glucose POC Glucose 110 H 106 H 118 H Calcium Phosphorus Magnesium ALT Alkaline Phosphatase Total Creatine Kinase CK-MB (CK-2) Rel Index Troponin T Albumin LDL Cholesterol Direct PTH Intact Salicylates Acetaminophen Crossmatch 03/12/19 03/13/19 03/13/19 23:36 04:38 04:38 WBC RBC 2.95 L Hgb 7.9 L Hct 24.9 L MCH 27 L MCHC RDW 19.9 H Lymph % (Auto) 11.1 L [place] % (Auto) 8.1 H Eos % (Auto) 4.4 H Lymph # 0.9 L [place] # Eos # Seg Neutrophils % 75.4 H Seg Neuts % (Manual) Lymphocytes % (Manual) Eosinophils % (Manual) Seg Neutrophils # Lymphocytes # (Manual) Eosinophils # (Manual) PT INR D-Dimer POC ABG pH POC ABG pCO2 POC ABG pO2 ABG pO2 ABG HCO3 ABG Base Excess ABG Hemoglobin Oxyhemoglobin Sodium 136 L Potassium 5.1 H Chloride 93.8 L Carbon Dioxide BUN 48 H Creatinine 2.7 H Glucose 102 H POC Glucose 115 H Calcium Phosphorus Magnesium ALT < 5 L Alkaline Phosphatase 143 H Total Creatine Kinase CK-MB (CK-2) Rel Index Troponin T Albumin 2.5 L LDL Cholesterol Direct PTH Intact Salicylates Acetaminophen Crossmatch 03/13/19 03/13/19 03/13/19 05:33 13:37 18:03 WBC RBC Hgb Hct MCH MCHC RDW Lymph % (Auto) [place] % (Auto) Eos % (Auto) Lymph # [place] # Eos # Seg Neutrophils % Seg Neuts % (Manual) Lymphocytes % (Manual) Eosinophils % (Manual) Seg Neutrophils # Lymphocytes # (Manual) Eosinophils # (Manual) PT INR D-Dimer POC ABG pH POC ABG pCO2 POC ABG pO2 ABG pO2 ABG HCO3 ABG Base Excess ABG Hemoglobin Oxyhemoglobin Sodium Potassium Chloride Carbon Dioxide BUN Creatinine Glucose POC Glucose 140 H 150 H 158 H Calcium Phosphorus Magnesium ALT Alkaline Phosphatase Total Creatine Kinase CK-MB (CK-2) Rel Index Troponin T Albumin LDL Cholesterol Direct PTH Intact Salicylates Acetaminophen Crossmatch 03/13/19 03/14/19 03/14/19 23:32 05:24 12:20 WBC RBC Hgb Hct MCH MCHC RDW Lymph % (Auto) [place] % (Auto) Eos % (Auto) Lymph # [place] # Eos # Seg Neutrophils % Seg Neuts % (Manual) Lymphocytes % (Manual) Eosinophils % (Manual) Seg Neutrophils # Lymphocytes # (Manual) Eosinophils # (Manual) PT INR D-Dimer POC ABG pH POC ABG pCO2 POC ABG pO2 ABG pO2 ABG HCO3 ABG Base Excess ABG Hemoglobin Oxyhemoglobin Sodium Potassium Chloride Carbon Dioxide BUN Creatinine Glucose POC Glucose 162 H 146 H 127 H Calcium Phosphorus Magnesium ALT Alkaline Phosphatase Total Creatine Kinase CK-MB (CK-2) Rel Index Troponin T Albumin LDL Cholesterol Direct PTH Intact Salicylates Acetaminophen Crossmatch 03/14/19 03/14/19 03/15/19 18:05 23:57 04:38 WBC 12.8 H RBC 3.11 L Hgb 8.1 L Hct 26.5 L MCH 26 L MCHC 31 L RDW 19.7 H Lymph % (Auto) 4.4 L [place] % (Auto) 7.4 H Eos % (Auto) Lymph # 0.6 L [place] # 0.9 H Eos # Seg Neutrophils % 87.3 H Seg Neuts % (Manual) Lymphocytes % (Manual) Eosinophils % (Manual) Seg Neutrophils # 11.2 H Lymphocytes # (Manual) Eosinophils # (Manual) PT INR D-Dimer POC ABG pH POC ABG pCO2 POC ABG pO2 ABG pO2 ABG HCO3 ABG Base Excess ABG Hemoglobin Oxyhemoglobin Sodium Potassium Chloride Carbon Dioxide BUN Creatinine Glucose POC Glucose 142 H 155 H Calcium Phosphorus Magnesium ALT Alkaline Phosphatase Total Creatine Kinase CK-MB (CK-2) Rel Index Troponin T Albumin LDL Cholesterol Direct PTH Intact Salicylates Acetaminophen Crossmatch 03/15/19 03/15/19 03/15/19 04:38 05:31 11:32 WBC RBC Hgb Hct MCH MCHC RDW Lymph % (Auto) [place] % (Auto) Eos % (Auto) Lymph # [place] # Eos # Seg Neutrophils % Seg Neuts % (Manual) Lymphocytes % (Manual) Eosinophils % (Manual) Seg Neutrophils # Lymphocytes # (Manual) Eosinophils # (Manual) PT INR D-Dimer POC ABG pH POC ABG pCO2 POC ABG pO2 ABG pO2 ABG HCO3 ABG Base Excess ABG Hemoglobin Oxyhemoglobin Sodium 135 L Potassium Chloride 91.9 L Carbon Dioxide BUN 54 H Creatinine 2.8 H Glucose 128 H POC Glucose 160 H 109 H Calcium 11.1 H Phosphorus Magnesium ALT Alkaline Phosphatase 161 H Total Creatine Kinase CK-MB (CK-2) Rel Index Troponin T Albumin 2.3 L LDL Cholesterol Direct PTH Intact Salicylates Acetaminophen Crossmatch 03/15/19 03/15/19 03/16/19 18:15 23:41 05:40 WBC RBC Hgb Hct MCH MCHC RDW Lymph % (Auto) [place] % (Auto) Eos % (Auto) Lymph # [place] # Eos # Seg Neutrophils % Seg Neuts % (Manual) Lymphocytes % (Manual) Eosinophils % (Manual) Seg Neutrophils # Lymphocytes # (Manual) Eosinophils # (Manual) PT INR D-Dimer POC ABG pH POC ABG pCO2 POC ABG pO2 ABG pO2 ABG HCO3 ABG Base Excess ABG Hemoglobin Oxyhemoglobin Sodium Potassium Chloride Carbon Dioxide BUN Creatinine Glucose POC Glucose 151 H 110 H 163 H Calcium Phosphorus Magnesium ALT Alkaline Phosphatase Total Creatine Kinase CK-MB (CK-2) Rel Index Troponin T Albumin LDL Cholesterol Direct PTH Intact Salicylates Acetaminophen Crossmatch 03/16/19 03/16/19 03/16/19 11:55 17:04 23:58 WBC RBC Hgb Hct MCH MCHC RDW Lymph % (Auto) [place] % (Auto) Eos % (Auto) Lymph # [place] # Eos # Seg Neutrophils % Seg Neuts % (Manual) Lymphocytes % (Manual) Eosinophils % (Manual) Seg Neutrophils # Lymphocytes # (Manual) Eosinophils # (Manual) PT INR D-Dimer POC ABG pH POC ABG pCO2 POC ABG pO2 ABG pO2 ABG HCO3 ABG Base Excess ABG Hemoglobin Oxyhemoglobin Sodium Potassium Chloride Carbon Dioxide BUN Creatinine Glucose POC Glucose 114 H 147 H 192 H Calcium Phosphorus Magnesium ALT Alkaline Phosphatase Total Creatine Kinase CK-MB (CK-2) Rel Index Troponin T Albumin LDL Cholesterol Direct PTH Intact Salicylates Acetaminophen Crossmatch 03/17/19 03/17/19 03/17/19 05:53 11:17 17:01 WBC RBC Hgb Hct MCH MCHC RDW Lymph % (Auto) [place] % (Auto) Eos % (Auto) Lymph # [place] # Eos # Seg Neutrophils % Seg Neuts % (Manual) Lymphocytes % (Manual) Eosinophils % (Manual) Seg Neutrophils # Lymphocytes # (Manual) Eosinophils # (Manual) PT INR D-Dimer POC ABG pH POC ABG pCO2 POC ABG pO2 ABG pO2 ABG HCO3 ABG Base Excess ABG Hemoglobin Oxyhemoglobin Sodium Potassium Chloride Carbon Dioxide BUN Creatinine Glucose POC Glucose 151 H 161 H 152 H Calcium Phosphorus Magnesium ALT Alkaline Phosphatase Total Creatine Kinase CK-MB (CK-2) Rel Index Troponin T Albumin LDL Cholesterol Direct PTH Intact Salicylates Acetaminophen Crossmatch 03/17/19 03/18/19 03/18/19 21:47 04:15 04:44 WBC RBC Hgb Hct MCH MCHC RDW Lymph % (Auto) [place] % (Auto) Eos % (Auto) Lymph # [place] # Eos # Seg Neutrophils % Seg Neuts % (Manual) Lymphocytes % (Manual) Eosinophils % (Manual) Seg Neutrophils # Lymphocytes # (Manual) Eosinophils # (Manual) PT INR D-Dimer POC ABG pH POC ABG pCO2 POC ABG pO2 ABG pO2 102.8 H ABG HCO3 28.3 H ABG Base Excess ABG Hemoglobin 10.4 L Oxyhemoglobin 94.5 L Sodium Potassium Chloride Carbon Dioxide BUN Creatinine Glucose POC Glucose 170 H 150 H Calcium Phosphorus Magnesium ALT Alkaline Phosphatase Total Creatine Kinase CK-MB (CK-2) Rel Index Troponin T Albumin LDL Cholesterol Direct PTH Intact Salicylates Acetaminophen Crossmatch 03/18/19 03/18/19 03/18/19 06:38 12:12 17:47 WBC RBC Hgb Hct MCH MCHC RDW Lymph % (Auto) [place] % (Auto) Eos % (Auto) Lymph # [place] # Eos # Seg Neutrophils % Seg Neuts % (Manual) Lymphocytes % (Manual) Eosinophils % (Manual) Seg Neutrophils # Lymphocytes # (Manual) Eosinophils # (Manual) PT INR D-Dimer POC ABG pH 7.510 H POC ABG pCO2 POC ABG pO2 164 H ABG pO2 ABG HCO3 ABG Base Excess ABG Hemoglobin Oxyhemoglobin Sodium Potassium Chloride Carbon Dioxide BUN Creatinine Glucose POC Glucose 145 H 149 H Calcium Phosphorus Magnesium ALT Alkaline Phosphatase Total Creatine Kinase CK-MB (CK-2) Rel Index Troponin T Albumin LDL Cholesterol Direct PTH Intact Salicylates Acetaminophen Crossmatch 03/18/19 03/19/19 03/19/19 23:25 01:11 04:23 WBC 15.6 H RBC 2.51 L Hgb 6.5 L Hct 21.6 L MCH 26 L MCHC 30 L RDW 19.8 H Lymph % (Auto) 6.0 L [place] % (Auto) Eos % (Auto) Lymph # 0.9 L [place] # 1.0 H Eos # Seg Neutrophils % 85.5 H Seg Neuts % (Manual) Lymphocytes % (Manual) Eosinophils % (Manual) Seg Neutrophils # 13.4 H Lymphocytes # (Manual) Eosinophils # (Manual) PT INR D-Dimer POC ABG pH POC ABG pCO2 POC ABG pO2 ABG pO2 78.3 L ABG HCO3 30.7 H ABG Base Excess 5.8 H ABG Hemoglobin 5.8 L Oxyhemoglobin 94.6 L Sodium Potassium Chloride Carbon Dioxide BUN Creatinine Glucose POC Glucose 190 H Calcium Phosphorus Magnesium ALT Alkaline Phosphatase Total Creatine Kinase CK-MB (CK-2) Rel Index Troponin T Albumin LDL Cholesterol Direct PTH Intact Salicylates Acetaminophen Crossmatch 03/19/19 03/19/19 03/19/19 05:22 05:35 08:54 WBC RBC Hgb Hct MCH MCHC RDW Lymph % (Auto) [place] % (Auto) Eos % (Auto) Lymph # [place] # Eos # Seg Neutrophils % Seg Neuts % (Manual) Lymphocytes % (Manual) Eosinophils % (Manual) Seg Neutrophils # Lymphocytes # (Manual) Eosinophils # (Manual) PT INR D-Dimer POC ABG pH POC ABG pCO2 POC ABG pO2 ABG pO2 ABG HCO3 ABG Base Excess ABG Hemoglobin Oxyhemoglobin Sodium Potassium Chloride Carbon Dioxide BUN Creatinine Glucose POC Glucose 167 H Calcium Phosphorus Magnesium ALT Alkaline Phosphatase Total Creatine Kinase CK-MB (CK-2) Rel Index Troponin T Albumin LDL Cholesterol Direct PTH Intact Salicylates Acetaminophen Crossmatch See Detail See Detail 03/19/19 03/19/19 03/19/19 12:36 17:02 23:25 WBC RBC Hgb Hct MCH MCHC RDW Lymph % (Auto) [place] % (Auto) Eos % (Auto) Lymph # [place] # Eos # Seg Neutrophils % Seg Neuts % (Manual) Lymphocytes % (Manual) Eosinophils % (Manual) Seg Neutrophils # Lymphocytes # (Manual) Eosinophils # (Manual) PT INR D-Dimer POC ABG pH POC ABG pCO2 POC ABG pO2 ABG pO2 ABG HCO3 ABG Base Excess ABG Hemoglobin Oxyhemoglobin Sodium Potassium Chloride Carbon Dioxide BUN Creatinine Glucose POC Glucose 167 H 135 H 136 H Calcium Phosphorus Magnesium ALT Alkaline Phosphatase Total Creatine Kinase CK-MB (CK-2) Rel Index Troponin T Albumin LDL Cholesterol Direct PTH Intact Salicylates Acetaminophen Crossmatch 03/20/19 03/20/19 03/20/19 05:38 08:40 08:40 WBC RBC 2.61 L Hgb 7.1 L Hct 22.0 L MCH 27 L MCHC RDW 19.6 H Lymph % (Auto) 8.2 L [place] % (Auto) 8.3 H Eos % (Auto) 5.7 H Lymph # 0.8 L [place] # Eos # 0.5 H Seg Neutrophils % 77.3 H Seg Neuts % (Manual) Lymphocytes % (Manual) Eosinophils % (Manual) Seg Neutrophils # Lymphocytes # (Manual) Eosinophils # (Manual) PT INR D-Dimer POC ABG pH POC ABG pCO2 POC ABG pO2 ABG pO2 ABG HCO3 ABG Base Excess ABG Hemoglobin Oxyhemoglobin Sodium Potassium Chloride 95.9 L Carbon Dioxide BUN 69 H Creatinine 2.8 H Glucose 115 H POC Glucose 134 H Calcium 10.5 H Phosphorus Magnesium ALT Alkaline Phosphatase Total Creatine Kinase CK-MB (CK-2) Rel Index Troponin T Albumin LDL Cholesterol Direct PTH Intact Salicylates Acetaminophen Crossmatch 03/20/19 03/20/19 03/20/19 12:13 18:04 23:49 WBC RBC Hgb Hct MCH MCHC RDW Lymph % (Auto) [place] % (Auto) Eos % (Auto) Lymph # [place] # Eos # Seg Neutrophils % Seg Neuts % (Manual) Lymphocytes % (Manual) Eosinophils % (Manual) Seg Neutrophils # Lymphocytes # (Manual) Eosinophils # (Manual) PT INR D-Dimer POC ABG pH POC ABG pCO2 POC ABG pO2 ABG pO2 ABG HCO3 ABG Base Excess ABG Hemoglobin Oxyhemoglobin Sodium Potassium Chloride Carbon Dioxide BUN Creatinine Glucose POC Glucose 144 H 165 H 172 H Calcium Phosphorus Magnesium ALT Alkaline Phosphatase Total Creatine Kinase CK-MB (CK-2) Rel Index Troponin T Albumin LDL Cholesterol Direct PTH Intact Salicylates Acetaminophen Crossmatch 03/21/19 03/21/19 03/21/19 05:00 06:29 06:30 WBC RBC 2.72 L Hgb 7.4 L Hct 22.9 L MCH 27 L MCHC RDW 19.4 H Lymph % (Auto) [place] % (Auto) Eos % (Auto) Lymph # [place] # Eos # Seg Neutrophils % Seg Neuts % (Manual) 81.0 H Lymphocytes % (Manual) 8.0 L Eosinophils % (Manual) 8.0 H Seg Neutrophils # Lymphocytes # (Manual) 0.7 L Eosinophils # (Manual) 0.7 H PT INR D-Dimer POC ABG pH POC ABG pCO2 POC ABG pO2 ABG pO2 ABG HCO3 ABG Base Excess ABG Hemoglobin Oxyhemoglobin Sodium Potassium Chloride Carbon Dioxide 33 H BUN 43 H Creatinine 1.7 H Glucose 145 H POC Glucose 156 H Calcium Phosphorus Magnesium ALT Alkaline Phosphatase 212 H Total Creatine Kinase CK-MB (CK-2) Rel Index Troponin T Albumin 2.2 L LDL Cholesterol Direct PTH Intact Salicylates Acetaminophen Crossmatch 03/21/19 03/21/19 03/22/19 12:02 18:07 00:21 WBC RBC Hgb Hct MCH MCHC RDW Lymph % (Auto) [place] % (Auto) Eos % (Auto) Lymph # [place] # Eos # Seg Neutrophils % Seg Neuts % (Manual) Lymphocytes % (Manual) Eosinophils % (Manual) Seg Neutrophils # Lymphocytes # (Manual) Eosinophils # (Manual) PT INR D-Dimer POC ABG pH POC ABG pCO2 POC ABG pO2 ABG pO2 ABG HCO3 ABG Base Excess ABG Hemoglobin Oxyhemoglobin Sodium Potassium Chloride Carbon Dioxide BUN Creatinine Glucose POC Glucose 163 H 144 H 153 H Calcium Phosphorus Magnesium ALT Alkaline Phosphatase Total Creatine Kinase CK-MB (CK-2) Rel Index Troponin T Albumin LDL Cholesterol Direct PTH Intact Salicylates Acetaminophen Crossmatch 03/22/19 03/22/19 03/22/19 05:23 05:23 05:31 WBC RBC 2.58 L Hgb 7.1 L Hct 21.8 L MCH 27 L MCHC RDW 19.2 H Lymph % (Auto) [place] % (Auto) Eos % (Auto) Lymph # [place] # Eos # Seg Neutrophils % Seg Neuts % (Manual) Lymphocytes % (Manual) Eosinophils % (Manual) Seg Neutrophils # Lymphocytes # (Manual) Eosinophils # (Manual) PT INR D-Dimer POC ABG pH POC ABG pCO2 POC ABG pO2 ABG pO2 ABG HCO3 ABG Base Excess ABG Hemoglobin Oxyhemoglobin Sodium 147 H Potassium Chloride Carbon Dioxide BUN 68 H Creatinine 2.5 H Glucose POC Glucose 116 H Calcium 10.3 H Phosphorus Magnesium ALT Alkaline Phosphatase Total Creatine Kinase CK-MB (CK-2) Rel Index Troponin T Albumin LDL Cholesterol Direct PTH Intact Salicylates Acetaminophen Crossmatch 03/22/19 03/22/19 03/22/19 08:48 12:37 17:35 WBC RBC Hgb Hct MCH MCHC RDW Lymph % (Auto) [place] % (Auto) Eos % (Auto) Lymph # [place] # Eos # Seg Neutrophils % Seg Neuts % (Manual) Lymphocytes % (Manual) Eosinophils % (Manual) Seg Neutrophils # Lymphocytes # (Manual) Eosinophils # (Manual) PT INR D-Dimer POC ABG pH POC ABG pCO2 POC ABG pO2 ABG pO2 ABG HCO3 ABG Base Excess ABG Hemoglobin Oxyhemoglobin Sodium Potassium Chloride Carbon Dioxide BUN Creatinine Glucose POC Glucose 143 H 155 H Calcium Phosphorus Magnesium ALT Alkaline Phosphatase Total Creatine Kinase CK-MB (CK-2) Rel Index Troponin T Albumin LDL Cholesterol Direct PTH Intact Salicylates Acetaminophen Crossmatch See Detail 03/23/19 03/23/19 03/23/19 00:07 04:00 04:00 WBC 11.2 H RBC 2.32 L Hgb 6.4 L Hct 19.7 L* MCH MCHC RDW 19.4 H Lymph % (Auto) [place] % (Auto) Eos % (Auto) Lymph # [place] # Eos # Seg Neutrophils % Seg Neuts % (Manual) Lymphocytes % (Manual) Eosinophils % (Manual) Seg Neutrophils # Lymphocytes # (Manual) Eosinophils # (Manual) PT INR D-Dimer POC ABG pH POC ABG pCO2 POC ABG pO2 ABG pO2 ABG HCO3 ABG Base Excess ABG Hemoglobin Oxyhemoglobin Sodium 147 H Potassium 5.2 H Chloride Carbon Dioxide BUN 86 H Creatinine 3.2 H Glucose 128 H POC Glucose 135 H Calcium 10.3 H Phosphorus Magnesium ALT Alkaline Phosphatase Total Creatine Kinase CK-MB (CK-2) Rel Index Troponin T Albumin LDL Cholesterol Direct PTH Intact Salicylates Acetaminophen Crossmatch 03/23/19 03/23/19 03/23/19 05:21 11:36 11:36 WBC RBC Hgb 7.9 L Hct 25.0 L MCH MCHC RDW Lymph % (Auto) [place] % (Auto) Eos % (Auto) Lymph # [place] # Eos # Seg Neutrophils % Seg Neuts % (Manual) Lymphocytes % (Manual) Eosinophils % (Manual) Seg Neutrophils # Lymphocytes # (Manual) Eosinophils # (Manual) PT INR D-Dimer POC ABG pH POC ABG pCO2 POC ABG pO2 ABG pO2 ABG HCO3 ABG Base Excess ABG Hemoglobin Oxyhemoglobin Sodium Potassium Chloride Carbon Dioxide BUN Creatinine Glucose POC Glucose 132 H 147 H Calcium Phosphorus Magnesium ALT Alkaline Phosphatase Total Creatine Kinase CK-MB (CK-2) Rel Index Troponin T Albumin LDL Cholesterol Direct PTH Intact Salicylates Acetaminophen Crossmatch 03/23/19 03/24/19 03/24/19 17:31 01:22 04:20 WBC 12.2 H RBC 3.05 L Hgb 8.3 L Hct 25.9 L MCH 27 L MCHC RDW 18.7 H Lymph % (Auto) [place] % (Auto) Eos % (Auto) Lymph # [place] # Eos # Seg Neutrophils % Seg Neuts % (Manual) Lymphocytes % (Manual) Eosinophils % (Manual) Seg Neutrophils # Lymphocytes # (Manual) Eosinophils # (Manual) PT INR D-Dimer POC ABG pH POC ABG pCO2 POC ABG pO2 ABG pO2 ABG HCO3 ABG Base Excess ABG Hemoglobin Oxyhemoglobin Sodium Potassium Chloride Carbon Dioxide BUN Creatinine Glucose POC Glucose 182 H 113 H Calcium Phosphorus Magnesium ALT Alkaline Phosphatase Total Creatine Kinase CK-MB (CK-2) Rel Index Troponin T Albumin LDL Cholesterol Direct PTH Intact Salicylates Acetaminophen Crossmatch 03/24/19 03/24/19 03/24/19 04:20 11:59 18:14 WBC RBC Hgb Hct MCH MCHC RDW Lymph % (Auto) [place] % (Auto) Eos % (Auto) Lymph # [place] # Eos # Seg Neutrophils % Seg Neuts % (Manual) Lymphocytes % (Manual) Eosinophils % (Manual) Seg Neutrophils # Lymphocytes # (Manual) Eosinophils # (Manual) PT INR D-Dimer POC ABG pH POC ABG pCO2 POC ABG pO2 ABG pO2 ABG HCO3 ABG Base Excess ABG Hemoglobin Oxyhemoglobin Sodium Potassium Chloride 94.8 L Carbon Dioxide 32 H BUN 53 H Creatinine 2.3 H Glucose POC Glucose 163 H 134 H Calcium Phosphorus Magnesium ALT Alkaline Phosphatase Total Creatine Kinase CK-MB (CK-2) Rel Index Troponin T Albumin LDL Cholesterol Direct PTH Intact Salicylates Acetaminophen Crossmatch 03/24/19 03/25/19 03/25/19 23:15 05:52 12:02 WBC RBC Hgb Hct MCH MCHC RDW Lymph % (Auto) [place] % (Auto) Eos % (Auto) Lymph # [place] # Eos # Seg Neutrophils % Seg Neuts % (Manual) Lymphocytes % (Manual) Eosinophils % (Manual) Seg Neutrophils # Lymphocytes # (Manual) Eosinophils # (Manual) PT INR D-Dimer POC ABG pH POC ABG pCO2 POC ABG pO2 ABG pO2 ABG HCO3 ABG Base Excess ABG Hemoglobin Oxyhemoglobin Sodium Potassium Chloride Carbon Dioxide BUN Creatinine Glucose POC Glucose 129 H 123 H 125 H Calcium Phosphorus Magnesium ALT Alkaline Phosphatase Total Creatine Kinase CK-MB (CK-2) Rel Index Troponin T Albumin LDL Cholesterol Direct PTH Intact Salicylates Acetaminophen Crossmatch 03/25/19 03/26/19 03/26/19 17:27 00:30 05:35 WBC RBC 3.01 L Hgb 8.1 L Hct 25.7 L MCH 27 L MCHC RDW 19.2 H Lymph % (Auto) 11.4 L [place] % (Auto) Eos % (Auto) 8.0 H Lymph # 1.0 L [place] # Eos # 0.7 H Seg Neutrophils % 73.9 H Seg Neuts % (Manual) Lymphocytes % (Manual) Eosinophils % (Manual) Seg Neutrophils # Lymphocytes # (Manual) Eosinophils # (Manual) PT INR D-Dimer POC ABG pH POC ABG pCO2 POC ABG pO2 ABG pO2 ABG HCO3 ABG Base Excess ABG Hemoglobin Oxyhemoglobin Sodium Potassium Chloride Carbon Dioxide BUN Creatinine Glucose POC Glucose 130 H 129 H Calcium Phosphorus Magnesium ALT Alkaline Phosphatase Total Creatine Kinase CK-MB (CK-2) Rel Index Troponin T Albumin LDL Cholesterol Direct PTH Intact Salicylates Acetaminophen Crossmatch 03/26/19 03/26/19 03/26/19 05:35 05:45 12:16 WBC RBC Hgb Hct MCH MCHC RDW Lymph % (Auto) [place] % (Auto) Eos % (Auto) Lymph # [place] # Eos # Seg Neutrophils % Seg Neuts % (Manual) Lymphocytes % (Manual) Eosinophils % (Manual) Seg Neutrophils # Lymphocytes # (Manual) Eosinophils # (Manual) PT INR D-Dimer POC ABG pH POC ABG pCO2 POC ABG pO2 ABG pO2 ABG HCO3 ABG Base Excess ABG Hemoglobin Oxyhemoglobin Sodium Potassium Chloride 94.9 L Carbon Dioxide 31 H BUN 44 H Creatinine 2.0 H Glucose POC Glucose 118 H 107 H Calcium Phosphorus Magnesium ALT Alkaline Phosphatase Total Creatine Kinase CK-MB (CK-2) Rel Index Troponin T Albumin LDL Cholesterol Direct PTH Intact Salicylates Acetaminophen Crossmatch 03/26/19 03/27/19 03/27/19 17:56 00:36 05:37 WBC RBC Hgb Hct MCH MCHC RDW Lymph % (Auto) [place] % (Auto) Eos % (Auto) Lymph # [place] # Eos # Seg Neutrophils % Seg Neuts % (Manual) Lymphocytes % (Manual) Eosinophils % (Manual) Seg Neutrophils # Lymphocytes # (Manual) Eosinophils # (Manual) PT INR D-Dimer POC ABG pH POC ABG pCO2 POC ABG pO2 ABG pO2 ABG HCO3 ABG Base Excess ABG Hemoglobin Oxyhemoglobin Sodium Potassium Chloride Carbon Dioxide BUN Creatinine Glucose POC Glucose 107 H 110 H 122 H Calcium Phosphorus Magnesium ALT Alkaline Phosphatase Total Creatine Kinase CK-MB (CK-2) Rel Index Troponin T Albumin LDL Cholesterol Direct PTH Intact Salicylates Acetaminophen Crossmatch 03/27/19 03/27/19 03/28/19 11:22 18:00 05:17 WBC RBC Hgb Hct MCH MCHC RDW Lymph % (Auto) [place] % (Auto) Eos % (Auto) Lymph # [place] # Eos # Seg Neutrophils % Seg Neuts % (Manual) Lymphocytes % (Manual) Eosinophils % (Manual) Seg Neutrophils # Lymphocytes # (Manual) Eosinophils # (Manual) PT INR D-Dimer POC ABG pH POC ABG pCO2 POC ABG pO2 ABG pO2 ABG HCO3 ABG Base Excess ABG Hemoglobin Oxyhemoglobin Sodium Potassium Chloride Carbon Dioxide BUN Creatinine Glucose POC Glucose 120 H 111 H 107 H Calcium Phosphorus Magnesium ALT Alkaline Phosphatase Total Creatine Kinase CK-MB (CK-2) Rel Index Troponin T Albumin LDL Cholesterol Direct PTH Intact Salicylates Acetaminophen Crossmatch 03/28/19 03/28/19 03/29/19 12:27 18:08 05:47 WBC RBC Hgb Hct MCH MCHC RDW Lymph % (Auto) [place] % (Auto) Eos % (Auto) Lymph # [place] # Eos # Seg Neutrophils % Seg Neuts % (Manual) Lymphocytes % (Manual) Eosinophils % (Manual) Seg Neutrophils # Lymphocytes # (Manual) Eosinophils # (Manual) PT INR D-Dimer POC ABG pH POC ABG pCO2 POC ABG pO2 ABG pO2 ABG HCO3 ABG Base Excess ABG Hemoglobin Oxyhemoglobin Sodium Potassium Chloride Carbon Dioxide BUN Creatinine Glucose POC Glucose 114 H 121 H 112 H Calcium Phosphorus Magnesium ALT Alkaline Phosphatase Total Creatine Kinase CK-MB (CK-2) Rel Index Troponin T Albumin LDL Cholesterol Direct PTH Intact Salicylates Acetaminophen Crossmatch 03/29/19 03/29/19 03/30/19 12:14 18:08 00:31 WBC RBC Hgb Hct MCH MCHC RDW Lymph % (Auto) [place] % (Auto) Eos % (Auto) Lymph # [place] # Eos # Seg Neutrophils % Seg Neuts % (Manual) Lymphocytes % (Manual) Eosinophils % (Manual) Seg Neutrophils # Lymphocytes # (Manual) Eosinophils # (Manual) PT INR D-Dimer POC ABG pH POC ABG pCO2 POC ABG pO2 ABG pO2 ABG HCO3 ABG Base Excess ABG Hemoglobin Oxyhemoglobin Sodium Potassium Chloride Carbon Dioxide BUN Creatinine Glucose POC Glucose 117 H 140 H 114 H Calcium Phosphorus Magnesium ALT Alkaline Phosphatase Total Creatine Kinase CK-MB (CK-2) Rel Index Troponin T Albumin LDL Cholesterol Direct PTH Intact Salicylates Acetaminophen Crossmatch 03/30/19 03/30/19 03/30/19 10:13 10:13 23:53 WBC RBC 2.81 L Hgb 7.7 L Hct 24.3 L MCH 27 L MCHC RDW 19.0 H Lymph % (Auto) 12.2 L [place] % (Auto) Eos % (Auto) 7.9 H Lymph # 1.0 L [place] # Eos # 0.6 H Seg Neutrophils % 72.3 H Seg Neuts % (Manual) Lymphocytes % (Manual) Eosinophils % (Manual) Seg Neutrophils # Lymphocytes # (Manual) Eosinophils # (Manual) PT INR D-Dimer POC ABG pH POC ABG pCO2 POC ABG pO2 ABG pO2 ABG HCO3 ABG Base Excess ABG Hemoglobin Oxyhemoglobin Sodium Potassium 5.1 H Chloride 96.5 L Carbon Dioxide BUN 73 H Creatinine 3.9 H D Glucose POC Glucose 114 H Calcium 10.3 H Phosphorus 6.30 H Magnesium 2.70 H ALT Alkaline Phosphatase 185 H Total Creatine Kinase CK-MB (CK-2) Rel Index Troponin T Albumin 2.6 L LDL Cholesterol Direct PTH Intact Salicylates Acetaminophen Crossmatch 03/31/19 03/31/19 03/31/19 05:45 10:26 10:26 WBC RBC 3.01 L Hgb 8.2 L Hct 26.4 L MCH 27 L MCHC 31 L RDW 20.3 H Lymph % (Auto) 13.3 L [place] % (Auto) Eos % (Auto) 7.2 H Lymph # 1.1 L [place] # Eos # 0.6 H Seg Neutrophils % 72.1 H Seg Neuts % (Manual) Lymphocytes % (Manual) Eosinophils % (Manual) Seg Neutrophils # Lymphocytes # (Manual) Eosinophils # (Manual) PT INR D-Dimer POC ABG pH POC ABG pCO2 POC ABG pO2 ABG pO2 ABG HCO3 ABG Base Excess ABG Hemoglobin Oxyhemoglobin Sodium Potassium Chloride 96.9 L Carbon Dioxide 33 H BUN 37 H Creatinine 2.4 H Glucose POC Glucose 108 H Calcium 10.3 H Phosphorus Magnesium ALT Alkaline Phosphatase Total Creatine Kinase CK-MB (CK-2) Rel Index Troponin T Albumin LDL Cholesterol Direct PTH Intact Salicylates Acetaminophen Crossmatch 03/31/19 04/01/19 04/01/19 12:38 05:48 12:06 WBC RBC Hgb Hct MCH MCHC RDW Lymph % (Auto) [place] % (Auto) Eos % (Auto) Lymph # [place] # Eos # Seg Neutrophils % Seg Neuts % (Manual) Lymphocytes % (Manual) Eosinophils % (Manual) Seg Neutrophils # Lymphocytes # (Manual) Eosinophils # (Manual) PT INR D-Dimer POC ABG pH POC ABG pCO2 POC ABG pO2 ABG pO2 ABG HCO3 ABG Base Excess ABG Hemoglobin Oxyhemoglobin Sodium Potassium Chloride Carbon Dioxide BUN Creatinine Glucose POC Glucose 108 H 114 H 111 H Calcium Phosphorus Magnesium ALT Alkaline Phosphatase Total Creatine Kinase CK-MB (CK-2) Rel Index Troponin T Albumin LDL Cholesterol Direct PTH Intact Salicylates Acetaminophen Crossmatch 04/01/19 04/02/19 04/04/19 18:24 00:36 23:55 WBC RBC Hgb Hct MCH MCHC RDW Lymph % (Auto) [place] % (Auto) Eos % (Auto) Lymph # [place] # Eos # Seg Neutrophils % Seg Neuts % (Manual) Lymphocytes % (Manual) Eosinophils % (Manual) Seg Neutrophils # Lymphocytes # (Manual) Eosinophils # (Manual) PT INR D-Dimer POC ABG pH POC ABG pCO2 POC ABG pO2 ABG pO2 ABG HCO3 ABG Base Excess ABG Hemoglobin Oxyhemoglobin Sodium Potassium Chloride Carbon Dioxide BUN Creatinine Glucose POC Glucose 113 H 117 H 109 H Calcium Phosphorus Magnesium ALT Alkaline Phosphatase Total Creatine Kinase CK-MB (CK-2) Rel Index Troponin T Albumin LDL Cholesterol Direct PTH Intact Salicylates Acetaminophen Crossmatch 04/06/19 04/06/19 04/06/19 00:11 06:02 23:30 WBC RBC Hgb Hct MCH MCHC RDW Lymph % (Auto) [place] % (Auto) Eos % (Auto) Lymph # [place] # Eos # Seg Neutrophils % Seg Neuts % (Manual) Lymphocytes % (Manual) Eosinophils % (Manual) Seg Neutrophils # Lymphocytes # (Manual) Eosinophils # (Manual) PT INR D-Dimer POC ABG pH POC ABG pCO2 POC ABG pO2 ABG pO2 ABG HCO3 ABG Base Excess ABG Hemoglobin Oxyhemoglobin Sodium Potassium Chloride Carbon Dioxide BUN Creatinine Glucose POC Glucose 116 H 112 H 112 H Calcium Phosphorus Magnesium ALT Alkaline Phosphatase Total Creatine Kinase CK-MB (CK-2) Rel Index Troponin T Albumin LDL Cholesterol Direct PTH Intact Salicylates Acetaminophen Crossmatch 04/08/19 04/08/19 04/08/19 02:23 06:19 13:01 WBC RBC Hgb Hct MCH MCHC RDW Lymph % (Auto) [place] % (Auto) Eos % (Auto) Lymph # [place] # Eos # Seg Neutrophils % Seg Neuts % (Manual) Lymphocytes % (Manual) Eosinophils % (Manual) Seg Neutrophils # Lymphocytes # (Manual) Eosinophils # (Manual) PT INR D-Dimer POC ABG pH POC ABG pCO2 POC ABG pO2 ABG pO2 ABG HCO3 ABG Base Excess ABG Hemoglobin Oxyhemoglobin Sodium Potassium Chloride Carbon Dioxide BUN Creatinine Glucose POC Glucose 144 H 126 H 118 H Calcium Phosphorus Magnesium ALT Alkaline Phosphatase Total Creatine Kinase CK-MB (CK-2) Rel Index Troponin T Albumin LDL Cholesterol Direct PTH Intact Salicylates Acetaminophen Crossmatch 04/08/19 04/09/19 04/10/19 23:28 05:52 06:34 WBC RBC Hgb Hct MCH MCHC RDW Lymph % (Auto) [place] % (Auto) Eos % (Auto) Lymph # [place] # Eos # Seg Neutrophils % Seg Neuts % (Manual) Lymphocytes % (Manual) Eosinophils % (Manual) Seg Neutrophils # Lymphocytes # (Manual) Eosinophils # (Manual) PT INR D-Dimer POC ABG pH POC ABG pCO2 POC ABG pO2 ABG pO2 ABG HCO3 ABG Base Excess ABG Hemoglobin Oxyhemoglobin Sodium Potassium Chloride Carbon Dioxide BUN Creatinine Glucose POC Glucose 119 H 116 H 114 H Calcium Phosphorus Magnesium ALT Alkaline Phosphatase Total Creatine Kinase CK-MB (CK-2) Rel Index Troponin T Albumin LDL Cholesterol Direct PTH Intact Salicylates Acetaminophen Crossmatch 04/10/19 04/10/19 04/11/19 12:34 18:59 00:36 WBC RBC Hgb Hct MCH MCHC RDW Lymph % (Auto) [place] % (Auto) Eos % (Auto) Lymph # [place] # Eos # Seg Neutrophils % Seg Neuts % (Manual) Lymphocytes % (Manual) Eosinophils % (Manual) Seg Neutrophils # Lymphocytes # (Manual) Eosinophils # (Manual) PT INR D-Dimer POC ABG pH POC ABG pCO2 POC ABG pO2 ABG pO2 ABG HCO3 ABG Base Excess ABG Hemoglobin Oxyhemoglobin Sodium Potassium Chloride Carbon Dioxide BUN Creatinine Glucose POC Glucose 112 H 109 H 124 H Calcium Phosphorus Magnesium ALT Alkaline Phosphatase Total Creatine Kinase CK-MB (CK-2) Rel Index Troponin T Albumin LDL Cholesterol Direct PTH Intact Salicylates Acetaminophen Crossmatch 04/11/19 04/11/19 04/12/19 08:01 17:25 02:18 WBC RBC Hgb Hct MCH MCHC RDW Lymph % (Auto) [place] % (Auto) Eos % (Auto) Lymph # [place] # Eos # Seg Neutrophils % Seg Neuts % (Manual) Lymphocytes % (Manual) Eosinophils % (Manual) Seg Neutrophils # Lymphocytes # (Manual) Eosinophils # (Manual) PT INR D-Dimer POC ABG pH POC ABG pCO2 POC ABG pO2 ABG pO2 ABG HCO3 ABG Base Excess ABG Hemoglobin Oxyhemoglobin Sodium Potassium Chloride Carbon Dioxide BUN Creatinine Glucose POC Glucose 118 H 106 H 125 H Calcium Phosphorus Magnesium ALT Alkaline Phosphatase Total Creatine Kinase CK-MB (CK-2) Rel Index Troponin T Albumin LDL Cholesterol Direct PTH Intact Salicylates Acetaminophen Crossmatch 04/12/19 04/12/19 04/12/19 06:24 12:22 17:13 WBC RBC Hgb Hct MCH MCHC RDW Lymph % (Auto) [place] % (Auto) Eos % (Auto) Lymph # [place] # Eos # Seg Neutrophils % Seg Neuts % (Manual) Lymphocytes % (Manual) Eosinophils % (Manual) Seg Neutrophils # Lymphocytes # (Manual) Eosinophils # (Manual) PT INR D-Dimer POC ABG pH POC ABG pCO2 POC ABG pO2 ABG pO2 ABG HCO3 ABG Base Excess ABG Hemoglobin Oxyhemoglobin Sodium Potassium Chloride Carbon Dioxide BUN Creatinine Glucose POC Glucose 128 H 114 H 110 H Calcium Phosphorus Magnesium ALT Alkaline Phosphatase Total Creatine Kinase CK-MB (CK-2) Rel Index Troponin T Albumin LDL Cholesterol Direct PTH Intact Salicylates Acetaminophen Crossmatch 09/23/19 09/23/19 09/23/19 06:59 07:31 07:31 WBC RBC 3.34 L Hgb 8.9 L Hct 28.6 L MCH 27 L MCHC 31 L RDW 19.6 H Lymph % (Auto) [place] % (Auto) Eos % (Auto) Lymph # [place] # Eos # Seg Neutrophils % Seg Neuts % (Manual) Lymphocytes % (Manual) Eosinophils % (Manual) Seg Neutrophils # Lymphocytes # (Manual) Eosinophils # (Manual) PT INR D-Dimer POC ABG pH POC ABG pCO2 POC ABG pO2 ABG pO2 ABG HCO3 ABG Base Excess ABG Hemoglobin Oxyhemoglobin Sodium Potassium Chloride 96.4 L Carbon Dioxide 33 H BUN 66 H Creatinine 4.5 H Glucose 103 H POC Glucose 107 H Calcium Phosphorus Magnesium ALT Alkaline Phosphatase Total Creatine Kinase CK-MB (CK-2) Rel Index Troponin T Albumin LDL Cholesterol Direct PTH Intact Salicylates Acetaminophen Crossmatch 04/13/19 04/14/19 04/14/19 23:43 05:50 13:07 WBC RBC Hgb Hct MCH MCHC RDW Lymph % (Auto) [place] % (Auto) Eos % (Auto) Lymph # [place] # Eos # Seg Neutrophils % Seg Neuts % (Manual) Lymphocytes % (Manual) Eosinophils % (Manual) Seg Neutrophils # Lymphocytes # (Manual) Eosinophils # (Manual) PT INR D-Dimer POC ABG pH POC ABG pCO2 POC ABG pO2 ABG pO2 ABG HCO3 ABG Base Excess ABG Hemoglobin Oxyhemoglobin Sodium Potassium Chloride Carbon Dioxide BUN Creatinine Glucose POC Glucose 119 H 112 H 112 H Calcium Phosphorus Magnesium ALT Alkaline Phosphatase Total Creatine Kinase CK-MB (CK-2) Rel Index Troponin T Albumin LDL Cholesterol Direct PTH Intact Salicylates Acetaminophen Crossmatch 04/14/19 04/15/19 04/15/19 18:35 01:18 05:17 WBC RBC Hgb Hct MCH MCHC RDW Lymph % (Auto) [place] % (Auto) Eos % (Auto) Lymph # [place] # Eos # Seg Neutrophils % Seg Neuts % (Manual) Lymphocytes % (Manual) Eosinophils % (Manual) Seg Neutrophils # Lymphocytes # (Manual) Eosinophils # (Manual) PT INR D-Dimer POC ABG pH POC ABG pCO2 POC ABG pO2 ABG pO2 ABG HCO3 ABG Base Excess ABG Hemoglobin Oxyhemoglobin Sodium Potassium Chloride Carbon Dioxide BUN Creatinine Glucose POC Glucose 114 H 114 H 114 H Calcium Phosphorus Magnesium ALT Alkaline Phosphatase Total Creatine Kinase CK-MB (CK-2) Rel Index Troponin T Albumin LDL Cholesterol Direct PTH Intact Salicylates Acetaminophen Crossmatch 04/15/19 04/15/19 04/16/19 11:50 23:39 05:41 WBC RBC Hgb Hct MCH MCHC RDW Lymph % (Auto) [place] % (Auto) Eos % (Auto) Lymph # [place] # Eos # Seg Neutrophils % Seg Neuts % (Manual) Lymphocytes % (Manual) Eosinophils % (Manual) Seg Neutrophils # Lymphocytes # (Manual) Eosinophils # (Manual) PT INR D-Dimer POC ABG pH POC ABG pCO2 POC ABG pO2 ABG pO2 ABG HCO3 ABG Base Excess ABG Hemoglobin Oxyhemoglobin Sodium Potassium Chloride Carbon Dioxide BUN Creatinine Glucose POC Glucose 109 H 115 H 125 H Calcium Phosphorus Magnesium ALT Alkaline Phosphatase Total Creatine Kinase CK-MB (CK-2) Rel Index Troponin T Albumin LDL Cholesterol Direct PTH Intact Salicylates Acetaminophen Crossmatch 04/16/19 04/17/19 04/17/19 12:53 01:00 12:38 WBC RBC Hgb Hct MCH MCHC RDW Lymph % (Auto) [place] % (Auto) Eos % (Auto) Lymph # [place] # Eos # Seg Neutrophils % Seg Neuts % (Manual) Lymphocytes % (Manual) Eosinophils % (Manual) Seg Neutrophils # Lymphocytes # (Manual) Eosinophils # (Manual) PT INR D-Dimer POC ABG pH POC ABG pCO2 POC ABG pO2 ABG pO2 ABG HCO3 ABG Base Excess ABG Hemoglobin Oxyhemoglobin Sodium Potassium Chloride Carbon Dioxide BUN Creatinine Glucose POC Glucose 121 H 127 H 159 H Calcium Phosphorus Magnesium ALT Alkaline Phosphatase Total Creatine Kinase CK-MB (CK-2) Rel Index Troponin T Albumin LDL Cholesterol Direct PTH Intact Salicylates Acetaminophen Crossmatch 04/17/19 04/17/19 04/18/19 18:27 23:36 07:19 WBC RBC 3.49 L Hgb 9.0 L Hct 29.9 L MCH 26 L MCHC 30 L RDW 20.0 H Lymph % (Auto) [place] % (Auto) Eos % (Auto) Lymph # [place] # Eos # Seg Neutrophils % Seg Neuts % (Manual) Lymphocytes % (Manual) Eosinophils % (Manual) Seg Neutrophils # Lymphocytes # (Manual) Eosinophils # (Manual) PT INR D-Dimer POC ABG pH POC ABG pCO2 POC ABG pO2 ABG pO2 ABG HCO3 ABG Base Excess ABG Hemoglobin Oxyhemoglobin Sodium Potassium Chloride Carbon Dioxide BUN Creatinine Glucose POC Glucose 109 H 134 H Calcium Phosphorus Magnesium ALT Alkaline Phosphatase Total Creatine Kinase CK-MB (CK-2) Rel Index Troponin T Albumin LDL Cholesterol Direct PTH Intact Salicylates Acetaminophen Crossmatch 04/18/19 04/18/19 04/18/19 07:19 12:16 17:09 WBC RBC Hgb Hct MCH MCHC RDW Lymph % (Auto) [place] % (Auto) Eos % (Auto) Lymph # [place] # Eos # Seg Neutrophils % Seg Neuts % (Manual) Lymphocytes % (Manual) Eosinophils % (Manual) Seg Neutrophils # Lymphocytes # (Manual) Eosinophils # (Manual) PT INR D-Dimer POC ABG pH POC ABG pCO2 POC ABG pO2 ABG pO2 ABG HCO3 ABG Base Excess ABG Hemoglobin Oxyhemoglobin Sodium Potassium Chloride Carbon Dioxide BUN 41 H Creatinine 2.9 H Glucose 122 H POC Glucose 125 H 131 H Calcium Phosphorus Magnesium ALT Alkaline Phosphatase Total Creatine Kinase CK-MB (CK-2) Rel Index Troponin T Albumin LDL Cholesterol Direct PTH Intact Salicylates Acetaminophen Crossmatch 04/18/19 04/19/19 04/19/19 23:57 05:55 11:35 WBC RBC Hgb Hct MCH MCHC RDW Lymph % (Auto) [place] % (Auto) Eos % (Auto) Lymph # [place] # Eos # Seg Neutrophils % Seg Neuts % (Manual) Lymphocytes % (Manual) Eosinophils % (Manual) Seg Neutrophils # Lymphocytes # (Manual) Eosinophils # (Manual) PT INR D-Dimer POC ABG pH POC ABG pCO2 POC ABG pO2 ABG pO2 ABG HCO3 ABG Base Excess ABG Hemoglobin Oxyhemoglobin Sodium Potassium Chloride Carbon Dioxide BUN Creatinine Glucose POC Glucose 159 H 144 H 177 H Calcium Phosphorus Magnesium ALT Alkaline Phosphatase Total Creatine Kinase CK-MB (CK-2) Rel Index Troponin T Albumin LDL Cholesterol Direct PTH Intact Salicylates Acetaminophen Crossmatch 04/19/19 04/20/19 04/20/19 16:36 02:05 06:28 WBC RBC Hgb Hct MCH MCHC RDW Lymph % (Auto) [place] % (Auto) Eos % (Auto) Lymph # [place] # Eos # Seg Neutrophils % Seg Neuts % (Manual) Lymphocytes % (Manual) Eosinophils % (Manual) Seg Neutrophils # Lymphocytes # (Manual) Eosinophils # (Manual) PT INR D-Dimer POC ABG pH POC ABG pCO2 POC ABG pO2 ABG pO2 ABG HCO3 ABG Base Excess ABG Hemoglobin Oxyhemoglobin Sodium Potassium Chloride Carbon Dioxide BUN Creatinine Glucose POC Glucose 134 H 142 H 132 H Calcium Phosphorus Magnesium ALT Alkaline Phosphatase Total Creatine Kinase CK-MB (CK-2) Rel Index Troponin T Albumin LDL Cholesterol Direct PTH Intact Salicylates Acetaminophen Crossmatch 04/20/19 04/20/19 04/21/19 12:37 23:34 05:59 WBC RBC Hgb Hct MCH MCHC RDW Lymph % (Auto) [place] % (Auto) Eos % (Auto) Lymph # [place] # Eos # Seg Neutrophils % Seg Neuts % (Manual) Lymphocytes % (Manual) Eosinophils % (Manual) Seg Neutrophils # Lymphocytes # (Manual) Eosinophils # (Manual) PT INR D-Dimer POC ABG pH POC ABG pCO2 POC ABG pO2 ABG pO2 ABG HCO3 ABG Base Excess ABG Hemoglobin Oxyhemoglobin Sodium Potassium Chloride Carbon Dioxide BUN Creatinine Glucose POC Glucose 163 H 166 H 140 H Calcium Phosphorus Magnesium ALT Alkaline Phosphatase Total Creatine Kinase CK-MB (CK-2) Rel Index Troponin T Albumin LDL Cholesterol Direct PTH Intact Salicylates Acetaminophen Crossmatch 04/21/19 12:07 WBC RBC Hgb Hct MCH MCHC RDW Lymph % (Auto) [place] % (Auto) Eos % (Auto) Lymph # [place] # Eos # Seg Neutrophils % Seg Neuts % (Manual) Lymphocytes % (Manual) Eosinophils % (Manual) Seg Neutrophils # Lymphocytes # (Manual) Eosinophils # (Manual) PT INR D-Dimer POC ABG pH POC ABG pCO2 POC ABG pO2 ABG pO2 ABG HCO3 ABG Base Excess ABG Hemoglobin Oxyhemoglobin Sodium Potassium Chloride Carbon Dioxide BUN Creatinine Glucose POC Glucose 135 H Calcium Phosphorus Magnesium ALT Alkaline Phosphatase Total Creatine Kinase CK-MB (CK-2) Rel Index Troponin T Albumin LDL Cholesterol Direct PTH Intact Salicylates Acetaminophen Crossmatch Chest x-ray: report reviewed, image reviewed
--- NOTE | 2019-04-21 14:56 | Progress Note ---
Subjective Date of service: 04/21/19 Principal diagnosis: Respiratory failure, acute on chronic systolic HF, ESRD Interval history: Assessment and plan: Patient is a 63-year-old -[place] man from [facility] with a plethora of co-morbidities including blindness, CVA, CHF, PPM/ICD, loop recorder since 2012 that is MRI compatible, IDDM type 2, sepsis left foot ulcer, afib, ESRD with complications on HD TTS, hypertension, AOCD and GERD who presented to the ED with hypotensive after intubation in the emergency room. Still intubated, diagnosed with fluid overload, pleural effusion. Patient has had recurrent admission in the hospital for similar reason and was recently discharged from the hospital following treatment of Severe Sepsis due to Necrotizing Unstagable sacral decubitus ulcer with ostemomylitis, expected to complete abx on discharge till 02/16/19. Trach and peg done Acute respiratory failure on mechanical ventilator >96 hrs Trach placed on 03/03/19 Pulm consult appreciated weaning trial VAP BUNDLE ASPIRATION BUNDLE Continue T-piece Finished therapy for Acinetobacter Acute pulmonary edema, fluid overload on CXR repeat xray intermittently Dialysis Necrotizing Unstagable sacral decubitus ulcer with ostemomyelitis Wound care, Dilated CMP Cardiomyiopathy EF 35-40% Continue diuresis PPM/ICD Acute encephalopathy, probably metabolic or toxic Continues on Mechanical ventilator. ESRD on hemodialysis nephrology following Vascular eval. 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 -Pt is s/p x1 DDVAP DVT prophylaxis Lovenox DNR poor prognosis Disposition: Awaiting on placement History Interval history: Patient was seen and examined. Follow-up on current diagnosis. No overnight events reported to me. Patient is mainly nonverbal. Hospitalist Physical - Physical exam Narrative exam: Gen: severely disabled, nad, awake alert x 1 HEENT: NC, EOMI, blind Neck: supple, trach + CVS/Heart: irreg irregular, normal S1S2 Chest/Lungs: diminished sounds GI/Abdomen:peg, colostomy present, good bowel sounds, no guarding or rebound Extermity/Skin: no c/c/e, no obvious rash Neuro: CN 2-12 grossly intact except vision, no new focal deficits Psych: calm Objective - Constitutional Vitals: Vital Signs - 12hr 04/21/19 04/21/19 04/21/19 04:09 08:00 08:10 Temperature 98.5 F Pulse Rate 95 H Pulse Rate [ Apical] Pulse Rate [ Left Dorsalis Pedis] Pulse Rate [ Left Radial] Pulse Rate [ 90 Posterior Bilateral Throughout] Pulse Rate [ Right Dorsalis Pedis] Pulse Rate [ Right Radial] Respiratory 19 Rate Respiratory 17 Rate [Posterior Bilateral Throughout] Blood Pressure 134/54 O2 Sat by Pulse 100 Oximetry O2 Sat by Pulse 97 Oximetry [ Assessment] 04/21/19 04/21/19 04/21/19 08:20 08:31 10:00 Temperature 97.5 F L Pulse Rate 94 H Pulse Rate [ 97 H Apical] Pulse Rate [ 97 H Left Dorsalis Pedis] Pulse Rate [ 97 H Left Radial] Pulse Rate [ Posterior Bilateral Throughout] Pulse Rate [ 97 H Right Dorsalis Pedis] Pulse Rate [ 97 H Right Radial] Respiratory 18 22 Rate Respiratory Rate [Posterior Bilateral Throughout] Blood Pressure 114/43 O2 Sat by Pulse 96 98 Oximetry O2 Sat by Pulse Oximetry [ Assessment] - Labs CBC & Chem 7: 04/18/19 07:19 04/18/19 07:19 Labs: Abnormal lab results 04/20/19 04/21/19 04/21/19 Range/Units 23:34 05:59 12:07 POC Glucose 166 H 140 H 135 H (70-105)
[2019-04-22] MEDS: INSULIN REGULAR, HUMAN 100 UNITS/1 ML SUB-Q SCH ×4 (00:33→18:20)
[2019-04-22] MEDS: IPRATROPIUM/ALBUTEROL SULFATE 3 ML AMPUL.NEB IH SCH ×3 (07:58→21:08)
[2019-04-22] MEDS: SERTRALINE 100 MG TAB PO SCH (10:53)
[2019-04-22] MEDS: risperiDONE 1 MG TAB PO SCH (10:53)
[2019-04-22] MEDS: SODIUM HYPOCHLORITE, DAKIN'S 1/2 STRENGTH (0.25%) 473 ML TOPICAL SOLN TP SCH ×2 (10:53→22:22)
[2019-04-22] MEDS: FAMOTIDINE 20 MG TAB PO SCH (10:53)
--- NOTE | 2019-04-22 11:30 | Progress Note ---
Assessment and Plan Assessment and plan: Acute respiratory failure on mechanical ventilator >96 hrs Trach placed on 03/03/19 Pulm consult appreciated weaning trial Aspiration precautions Continue T-piece Finished therapy for Acinetobacter Acute pulmonary edema, fluid overload on CXR repeat xray intermittently Dialysis Necrotizing Unstagable sacral decubitus ulcer with ostemomyelitis Wound care, Dilated CMP Cardiomyiopathy EF 35-40% Continue diuresis PPM/ICD Acute encephalopathy, probably metabolic or toxic Continues on Mechanical ventilator. ESRD on hemodialysis nephrology following Vascular eval. done re: LUE AV graft, see note Waiting for outpatient hemodialysis arrangements Permanent atrial fibrillation and flutter Not on anticoagulation because of anemia thrombocytopenia Diabetes mellitus type 2 Fingerstick Q4h Schizophrenia continue home meds Legally blind supportive care hypertension- fair Monitor BP Hypokalemia resolved Dysphagia s/p PEG tube Severe malnutrition/hypoalbuminemia with FTT: 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, finisher screwdown following PEG placed on 01/02/19 Decubitus ulcer s/p colostomy wound care History of sacral osteomyelitis and LE ulcers Completed Antibiotics Place on contact isolation for ESBL Klebsiella pneumonia on wound culture 01/02/19 Peripheral neuropathy: Continue gabapentin Anemia of chronic disease -s/p total of 8 units PRBC, follow cbc- no occult GI bleed noted. -Pt is s/p x1 DDVAP DVT prophylaxis Lovenox DNR poor prognosis Disposition: Awaiting on placement History Interval history: Patient is 63-year-old -[place] male patient from [facility] with multiple co-morbidities including blindness, CVA, CHF, PPM/ICD, loop recorder since 2012 that is MRI compatible, IDDM type 2, sepsis left foot ulcer, afib, ESRD with complications on HD TTS, hypertension, AOCD and GERD who presented to the ED with hypotensive after intubation in the emergency room. diagnosed with fluid overload, pleural effusion. Patient has had recurrent admission in the hospital for similar reason and was recently discharged from the hospital following treatment of Severe Sepsis due to Necrotizing Unstagable sacral decubitus ulcer with ostemomylitis, has received multiple courses of broad spectrum abx. Acute hypoxic respiratory failure, status post intubation and ventilatory support, now off vent, on T-piece Hospitalist Physical - Constitutional Vitals: Temp Pulse Resp BP Pulse Ox 98.2 F 80 18 114/59 98 04/22/19 07:31 04/22/19 07:59 04/22/19 07:59 10/02/19 07:31 04/22/19 07:59 General appearance: Present: no acute distress, well-nourished, other (T peace) - EENT Eyes: Present: PERRL, EOM intact ENT: hearing intact, clear oral mucosa, dentition normal - Neck Neck: Present: supple, normal ROM - Respiratory Respiratory effort: normal Respiratory: bilateral: CTA - Cardiovascular Rhythm: regular Heart Sounds: Present: S1 & S2. Absent: gallop, rub - Extremities Extremities: no ischemia, No edema, Full ROM - Abdominal General gastrointestinal: soft, non-tender, non-distended, normal bowel sounds - Integumentary Integumentary: Present: clear, warm, dry - Neurologic Neurologic: CNII-XII intact, moves all extremities Results - Labs CBC & Chem 7: 04/18/19 07:19 04/18/19 07:19 Labs: Laboratory Last Values WBC 9.6 K/mm3 (4.5-11.0) 04/18/19 07:19 RBC 3.49 M/mm3 (3.65-5.03) L 04/18/19 07:19 Hgb 9.0 gm/dl (11.8-15.2) L 04/18/19 07:19 Hct 29.9 % (35.5-45.6) L 04/18/19 07:19 MCV 86 fl (84-94) 04/18/19 07:19 MCH 26 pg (28-32) L 04/18/19 07:19 MCHC 30 % (32-34) L 04/18/19 07:19 RDW 20.0 % (13.2-15.2) H 04/18/19 07:19 Plt Count 286 K/mm3 (140-440) 04/18/19 07:19 Lymph % (Auto) 13.3 % (13.4-35.0) L 03/31/19 10:26 Stanton % (Auto) 6.5 % (0.0-7.3) 03/31/19 10:26 Eos % (Auto) 7.2 % (0.0-4.3) H 03/31/19 10:26 Baso % (Auto) 0.9 % (0.0-1.8) 03/31/19 10:26 Lymph # 1.1 K/mm3 (1.2-5.4) L 03/31/19 10:26 Stanton # 0.5 K/mm3 (0.0-0.8) 03/31/19 10: Eos # 0.6 K/mm3 (0.0-0.4) H 03/31/19 10: Baso # 0.1 K/mm3 (0.0-0.1) 03/31/19 10:26 Add Manual Diff Complete 03/21/19 06:30 Total Counted 100 03/21/19 06:30 Seg Neutrophils % 72.1 % (40.0-70.0) H 03/31/19 10:26 Seg Neuts % (Manual) 81.0 % (40.0-70.0) H 03/21/19 06:30 Band Neutrophils % 0 % 03/21/19 06:30 Lymphocytes % (Manual) 8.0 % (13.4-35.0) L 03/21/19 06:30 Reactive Lymphs % (Man) 0 % 03/21/19 06:30 Monocytes % (Manual) 1.0 % (0.0-7.3) 03/21/19 06:30 Eosinophils % (Manual) 8.0 % (0.0-4.3) H 03/21/19 06:30 Basophils % (Manual) 1.0 % (0.0-1.8) 03/21/19 06:30 Metamyelocytes % 1.0 % 03/21/19 06:30 Myelocytes % 0 % 03/21/19 06:30 Promyelocytes % 0 % 03/21/19 06:30 Blast Cells % 0 % 03/21/19 06:30 Nucleated RBC % Not Reportable 03/21/19 06:30 Seg Neutrophils # 6.0 K/mm3 (1.8-7.7) 03/31/19 10:26 Seg Neutrophils # Man 6.7 K/mm3 (1.8-7.7) 03/21/19 06:30 Band Neutrophils # 0.0 K/mm3 03/21/19 06:30 Lymphocytes # (Manual) 0.7 K/mm3 (1.2-5.4) L 03/21/19 06:30 Abs React Lymphs (Man) 0.0 K/mm3 03/21/19 06:30 Monocytes # (Manual) 0.1 K/mm3 (0.0-0.8) 03/21/19 06:30 Eosinophils # (Manual) 0.7 K/mm3 (0.0-0.4) H 03/21/19 06:30 Basophils # (Manual) 0.1 K/mm3 (0.0-0.1) 03/21/19 06:30 Metamyelocytes # 0.1 K/mm3 03/21/19 06:30 Myelocytes # 0.0 K/mm3 03/21/19 06:30 Promyelocytes # 0.0 K/mm3 03/21/19 06:30 Blast Cells # 0.0 K/mm3 03/21/19 06:30 WBC Morphology Not Reportable 03/21/19 06:30 Hypersegmented Neuts Not Reportable 03/21/19 06:30 Hyposegmented Neuts Not Reportable 03/21/19 06:30 Hypogranular Neuts Not Reportable 03/21/19 06:30 Smudge Cells Not Reportable 03/21/19 06:30 Toxic Granulation Not Reportable 03/21/19 06:30 Toxic Vacuolation Not Reportable 03/21/19 06:30 Dohle Bodies Not Reportable 03/21/19 06:30 Pelger-Huet Anomaly Not Reportable 03/21/19 06:30 Tramaine Rods Not Reportable 03/21/19 06:30 Platelet Estimate Consistent w auto 03/21/19 06:30 Clumped Platelets Not Reportable 03/21/19 06:30 Plt Clumps, EDTA Not Reportable 03/21/19 06:30 Large Platelets Not Reportable 03/21/19 06:30 Giant Platelets Not Reportable 03/21/19 06:30 Platelet Satelliting Not Reportable 03/21/19 06:30 Plt Morphology Comment Not Reportable 03/21/19 06:30 RBC Morphology Not Reportable 03/21/19 06:30 Dimorphic RBCs Not Reportable 03/21/19 06:30 Polychromasia Not Reportable 03/21/19 06:30 Hypochromasia Few 03/21/19 06:30 Poikilocytosis Few 03/21/19 06:30 Anisocytosis Few 03/21/19 06:30 Microcytosis Not Reportable 03/21/19 06:30 Macrocytosis Not Reportable 03/21/19 06:30 Spherocytes Not Reportable 03/21/19 06:30 Pappenheimer Bodies Not Reportable 03/21/19 06:30 Sickle Cells Not Reportable 03/21/19 06:30 Target Cells 1+ 03/21/19 06:30 Tear Drop Cells Not Reportable 03/21/19 06:30 Ovalocytes Few 03/21/19 06:30 Helmet Cells Not Reportable 03/21/19 06:30 Zhou-Ludlow Bodies Not Reportable 03/21/19 06:30 [place] Rings Not Reportable 03/21/19 06:30 Hebert Cells Not Reportable 03/21/19 06:30 Bite Cells Not Reportable 03/21/19 06:30 Crenated Cell Not Reportable 03/21/19 06:30 Elliptocytes Not Reportable 03/21/19 06:30 Acanthocytes (Spur) Not Reportable 03/21/19 06:30 Rouleaux Not Reportable 03/21/19 06:30 Hemoglobin C Crystals Not Reportable 03/21/19 06:30 Schistocytes Not Reportable 03/21/19 06:30 Malaria parasites Not Reportable 03/21/19 06:30 Jose Juan Bodies Not Reportable 03/21/19 06:30 Hem Pathologist Commnt No 03/21/19 06:30 PT 16.3 Sec. (12.2-14.9) H 03/01/19 09:39 INR 1.35 (0.87-1.13) H 03/01/19 09:39 APTT 33.7 Sec. (24.2-36.6) 02/21/19 18:30 D-Dimer 2987.82 ng/mlDDU (0-234) H 02/22/19 05:54 POC ABG pH 7.510 (7.35-7.45) H 03/18/19 06:38 ABG pH 7.424 pH Units (7.350-7.450) 03/19/19 04:23 POC ABG pCO2 38.9 (35-45) 03/18/19 06:38 ABG pCO2 48.0 mm Hg 03/19/19 04:23 POC ABG pO2 164 (80-105) H 03/18/19 06:38 ABG pO2 78.3 mm Hg (80.0-90.0) L 03/19/19 04:23 POC ABG HCO3 31.0 (22-26 mml/L) 03/18/19 06:38 ABG HCO3 30.7 mmol/L (20.0-26.0) H 03/19/19 04:23 POC ABG Total CO2 32 (23-27mmol/L) 03/18/19 06:38 POC ABG O2 Sat 100 03/18/19 06:38 ABG O2 Saturation 97.0 % (95.0-99.0) 03/19/19 04:23 ABG O2 Content 7.9 (0.0-44) 03/19/19 04:23 POC ABG Base Excess 8 ((-2) - (+3)mmol/L) 03/18/19 06:38 ABG Base Excess 5.8 mmol/L (-2.0-3.0) H 03/19/19 04:23 ABG Hemoglobin 5.8 gm/dl (14.0-18.0) L 03/19/19 04:23 ABG Carboxyhemoglobin 2.0 % (0.0-5.0) 03/19/19 04:23 ABG Methemoglobin 0.4 % (0.0-1.5) 03/19/19 04:23 Oxyhemoglobin 94.6 % (95.0-99.0) L 03/19/19 04:23 FiO2 35 % 03/19/19 04:23 Sodium 145 mmol/L (137-145) 04/18/19 07:19 Potassium 3.6 mmol/L (3.6-5.0) 04/18/19 07:19 Chloride 99.1 mmol/L (98-107) 04/18/19 07:19 Carbon Dioxide 30 mmol/L (22-30) 04/18/19 07:19 Anion Gap 20 mmol/L 04/18/19 07:19 BUN 41 mg/dL (9-20) H 04/18/19 07:19 Creatinine 2.9 mg/dL (0.8-1.5) H 04/18/19 07:19 Estimated GFR 27 ml/min 04/18/19 07:19 BUN/Creatinine Ratio 14 % 04/18/19 07:19 Glucose 122 mg/dL (75-100) H 04/18/19 07:19 POC Glucose 141 (70-105) H 04/22/19 05:12 Lactic Acid 1.00 mmol/L (0.7-2.0) 02/21/19 20:58 Calcium 10.1 mg/dL (8.4-10.2) 04/18/19 07:19 Phosphorus 4.30 mg/dL (2.5-4.5) D 03/31/19 10:26 Magnesium 2.70 mg/dL (1.7-2.3) H 03/30/19 10:13 Total Bilirubin 0.20 mg/dL (0.1-1.2) 03/30/19 10:13 AST 16 units/L (5-40) 03/30/19 10:13 ALT 11 units/L (7-56) 03/30/19 10:13 Alkaline Phosphatase 185 units/L (35-129) H 03/30/19 10:13 Ammonia 28.0 umol/L (25-60) 02/21/19 20:04 Total Creatine Kinase 64 units/L (55-170) 02/22/19 03:42 CK-MB (CK-2) 3.7 ng/mL (0.0-4.0) 02/22/19 03:42 CK-MB (CK-2) Rel Index 5.7 (0-4) H 02/22/19 03:42 Troponin T 0.193 ng/mL (0.00-0.029) H* 02/22/19 03:42 Total Protein 6.9 g/dL (6.3-8.2) 03/30/19 10:13 Albumin 2.6 g/dL (3.9-5) L 03/30/19 10:13 Albumin/Globulin Ratio 0.6 % 03/30/19 10:13 Triglycerides 51 mg/dL (2-149) 02/21/19 18:30 Cholesterol 82 mg/dL (50-199) 02/21/19 18:30 LDL Cholesterol Direct 36 mg/dL (50-130) L 02/21/19 18:30 HDL Cholesterol 40 mg/dL (40-59) 02/21/19 18:30 Cholesterol/HDL Ratio 2.05 % 02/21/19 18:30 TSH 2.760 mlU/mL (0.270-4.200) 02/21/19 20:04 PTH Intact 267.6 pg/mL (15-65) H 03/02/19 05:15 Salicylates < 0.3 mg/dL (2.8-20.0) L 02/21/19 20:04 Acetaminophen < 5.0 ug/mL (10.0-30.0) L 02/21/19 20:04 Hepatitis A IgM Ab Non-reactive (NonReactive) 03/31/19 22:56 Hep Bs Antigen Non-reactive (Negative) 03/31/19 22:56 Hep B Core IgM Ab Non-reactive (NonReactive) 03/31/19 22:56 Hepatitis C Antibody Non-reactive (NonReactive) 03/31/19 22:56 Blood Type O POSITIVE 03/22/19 08:48 Antibody Screen Negative 03/22/19 08:48 Crossmatch See Detail 03/22/19 08:48 Active Medications - Current Medications Current Medications: Generic Name Dose Route Start Last Admin Trade Name Freq PRN Reason Stop Dose Admin Albuterol/Ipratropium 1 ampul 02/24/19 20:00 04/22/19 07:58 Duoneb *Not For Prn Use* IH 1 ampul TIDRT SANCHEZ Administration Lipase/Protease/Amylase 1 each 04/10/19 15:16 Pancreaze 10,500 Unit FEEDTUBE PRN PRN For Clogged Feeding Tube Epoetin Solitario 20,000 unit 03/24/19 11:17 04/20/19 14:00 Procrit IV 20,000 unit UMA PRN Administration hemodialysis Famotidine 20 mg 02/23/19 10:00 04/22/19 10:53 Pepcid PO 20 mg DAILY SANCHEZ Administration Hydrophilic Ointment 1 applic 02/21/19 18:24 03/05/19 08:16 Vaseline Lip Therapy TP 1 applic Q2HR PRN Administration Dry Lips Sodium Chloride 100 mls @ 999 mls/hr 02/26/19 09:00 Nacl 0.9% IV UMA PRN Hypotension Insulin Human Regular 0 units 02/26/19 12:00 04/22/19 06:48 Humulin R SUB-Q Not Given Q6HR [facility] Protocol Metoprolol Tartrate 2.5 mg 02/28/19 12:06 03/15/19 05:15 Lopressor IV 2.5 mg Q4HR PRN Administration Tachycardia Multi-Ingred Cream/Lotion/Oil/Oint 1 applic 02/21/19 18:24 04/16/19 14:31 Artificial Tears Ophth Oint OU 1 applic Q4HR PRN Administration Dry Eye(s) Risperidone 1 mg 02/25/19 13:00 04/22/19 10:53 Risperdal PO 1 mg DAILY SANCHEZ Administration Sertraline HCl 100 mg 02/25/19 13:00 04/22/19 10:53 Zoloft PO 100 mg DAILY SANCHEZ Administration Simple Syrup 15 ml 04/10/19 15:16 Simple Syrup FEEDTUBE PRN PRN Hypoglycemia Simple Syrup 30 ml 04/10/19 15:16 Simple Syrup FEEDTUBE PRN PRN Hypoglycemia Sodium Bicarbonate 325 mg 04/10/19 15:16 Sodium Bicarbonate FEEDTUBE PRN PRN For Clogged Feeding Tube Sodium Hypochlorite 1 applic 04/01/19 13:00 04/22/19 10:53 Dakin's Half Strength TP 1 applicatio BID SANCHEZ Administration Nutrition/Malnutrition Assess - Dietary Evaluation Nutrition/Malnutrition Findings: Nutrition Notes Start: 02/22/19 12:51 Freq: Status: Active Protocol: Document 04/17/19 09:45 KS (Rec: 04/17/19 11:00 KS [id number]) Co-Sign 04/17/19 09:45 LM Nutrition Notes Initial or Follow up Reassessment Current Diagnosis Diabetes,Hypertension Other Pertinent Diagnosis Sacral PU, ESRD on HD (T/Thurs /Sat), Schizophrenia,Blind in L eye,S/P trach Current Diet Nepro at 50 ml/hr w/Abhilash BID Labs/Tests POC Glu - 127 Pertinent Medications Reviewed Height 5 ft 10 in Weight 78.2 kg [place] Body Weight (kg) 75.45 BMI 24.7 Subjective/Other Information Observed Nepro infusing at 50 ml/hr. RN states Abihlash not being given to pt. RN informed of reason for Abhilash. Percent of energy/protein needs met: 92%/100% Burn Absent Trauma Absent Minimum of two criteria No #2 Nutrition Diagnosis Increased nutrient needs ( specify in comment below) Diagnosis Progress(for reassessment Continues documentation) #1 Nutrition Diagnosis Inadequate oral intake Diagnosis Progress(for reassessment Continues documentation) Is patient on ventilator? No Is Patient Ambulatory and/or Out of Bed No REE-([place]-St. Jeor-confined to bed) 1899.108 Kcal/Kg value to use for calculation 30 Approximate Energy Requirements Using 2346 kcal/Kg Calculation Used for Recommendations Kcal/kg Additional Notes Protein Needs: 90-112g (1.2-1. 5g/kg) Fluid Needs: 1-1.5 L/day Nutrition Intervention Change Diet Order: Continue TF Nutrition Support: Nepro with Carbsteady 1.8 at 50 ml/hr Flush 200 ml q4hr Kcal 2,160 Protein (gm) 97 Fluid (mL) 872 Add Supplement/Snack (indicate name/kcal Abhilash BID /protein ) Provides kCal: 190 Provides Protein (gm) 5 Goal #1 TF tolerance Goal #2 Continue to meet at least 75% of calorie and protein needs via TF Anticipated Discharge Needs: TF Follow-Up By: 04/24/19 Additional Comments Follow for TF tolerance, Pt receiving Abhilash
--- NOTE | 2019-04-22 13:33 | Progress Note ---
Assessment and Plan Imp: 1. Acute encephalopathy, probably metabolic or toxic, resolved 2. A/C systolic CHF 3. Dilated CMP 4. Pulm HTN 5. ESRD 6. RUL atelectasis, probably mucous plugging -> resolved 7. KEON pneumonia, resolved Rec: 1. Chest PT, Duonebs 2. Tolerating Tpiece; monitor; medically I believe his trach should be permanent for airway management but will try downsizing him to a size 6 cuffed + begin PMV trials thereafter -> ordered 04/21/19, not done, so order re-sent today 3. Avoid sedatives; resumed psych meds 4. DVT and GI PPx 5. TFs per PEG 6. HD per renal 7. Agree w/ DNR as per family wishes although hospice is the most appropriate course for him Await placement No family present Subjective Date of service: 04/22/19 Principal diagnosis: Respiratory failure, acute on chronic systolic HF, ESRD Interval history: No events. Mentation near usual poor baseline. Does responsd to basic questions but cannot give hx. On 28% per Tpiece. On HD. Active Medications Albuterol/Ipratropium (Duoneb *Not For Prn Use*) 1 ampul IH TIDRT [facility] [place] Last Admin: 04/22/19 07:58 Dose: 1 ampul Documented by: Lipase/Protease/Amylase ([place] 10,500 Unit) 1 each FEEDTUBE PRN PRN PRN Reason: For Clogged Feeding Tube Epoetin Solitario (Procrit) 20,000 unit IV UMA PRN PRN Reason: hemodialysis Last Admin: 04/20/19 14:00 Dose: 20,000 unit Documented by: Famotidine (Pepcid) 20 mg PO DAILY [facility] [place] Last Admin: 04/22/19 10:53 Dose: 20 mg Documented by: Hydrophilic Ointment (Vaseline Lip Therapy) 1 applic TP Q2HR PRN PRN Reason: Dry Lips Last Admin: 03/05/19 08:16 Dose: 1 applic Documented by: Sodium Chloride (Nacl 0.9%) 100 mls @ 999 mls/hr IV UMA PRN PRN Reason: Hypotension Insulin Human Regular (Humulin R) 0 units SUB-Q Q6HR [facility] [place]; Protocol Last Admin: 04/22/19 13:12 Dose: Not Given Documented by: Metoprolol Tartrate (Lopressor) 2.5 mg IV Q4HR PRN PRN Reason: Tachycardia Last Admin: 03/15/19 05:15 Dose: 2.5 mg Documented by: Multi-Ingred Cream/Lotion/Oil/Oint (Artificial Tears Ophth Oint) 1 applic OU Q4HR PRN PRN Reason: Dry Eye(s) Last Admin: 04/16/19 14:31 Dose: 1 applic Documented by: Risperidone (Risperdal) 1 mg PO DAILY [facility] [place] Last Admin: 04/22/19 10:53 Dose: 1 mg Documented by: Sertraline HCl (Zoloft) 100 mg PO DAILY [facility] [place] Last Admin: 04/22/19 10:53 Dose: 100 mg Documented by: Simple Syrup (Simple Syrup) 15 ml FEEDTUBE PRN PRN PRN Reason: Hypoglycemia Simple Syrup (Simple Syrup) 30 ml FEEDTUBE PRN PRN PRN Reason: Hypoglycemia Sodium Bicarbonate (Sodium Bicarbonate) 325 mg FEEDTUBE PRN PRN PRN Reason: For Clogged Feeding Tube Sodium Hypochlorite (Dakin's Half Strength) 1 applic TP BID [facility] [place] Last Admin: 04/22/19 10:53 Dose: 1 applicatio Documented by: Objective Vital Signs - 12hr 04/22/19 04/22/19 04/22/19 03:00 03:26 07:31 Temperature 98.3 F 98.2 F Pulse Rate 93 H 89 Pulse Rate [ Posterior Bilateral Throughout] Respiratory 20 16 Rate Respiratory Rate [Posterior Bilateral Throughout] Blood Pressure 117/63 114/59 O2 Sat by Pulse 100 100 Oximetry O2 Sat by Pulse 100 Oximetry [ Assessment] 04/22/19 04/22/19 04/22/19 07:59 11:45 12:15 Temperature 98.1 F Pulse Rate 80 85 Pulse Rate [ 80 Posterior Bilateral Throughout] Respiratory 16 Rate Respiratory 18 Rate [Posterior Bilateral Throughout] Blood Pressure 112/80 108/53 O2 Sat by Pulse 98 Oximetry O2 Sat by Pulse 98 Oximetry [ Assessment] Constitutional: no acute distress, alert Eyes: non-icteric ENT: oropharynx moist Neck: supple Effort: normal Ascultation: Bilateral: other (coarse BS bilaterally) Percussion: Bilateral: not dull Cardiovascular: regular rate and rhythm (no mrg) Gastrointestinal: normoactive bowel sounds, soft, non-tender, non-distended, other (ostomy in place, brown stool) Extremities: no cyanosis, no edema, pink and warm Neurologic: other (mild weakness LUE, o/w nonfocal) Psychiatric: other (unable to assess) CBC and BMP: 04/18/19 07:19 04/18/19 07:19 ABG, PT/INR, D-dimer: ABG POC ABG pH 7.510 (7.35-7.45) H 03/18/19 06:38 ABG pH 7.424 pH Units (7.350-7.450) 03/19/19 04:23 POC ABG pCO2 38.9 (35-45) 03/18/19 06:38 ABG pCO2 48.0 mm Hg 03/19/19 04:23 POC ABG pO2 164 (80-105) H 03/18/19 06:38 ABG pO2 78.3 mm Hg (80.0-90.0) L 03/19/19 04:23 POC ABG HCO3 31.0 (22-26 mml/L) 03/18/19 06:38 POC ABG Total CO2 32 (23-27mmol/L) 03/18/19 06:38 POC ABG O2 Sat 100 03/18/19 06:38 ABG O2 Saturation 97.0 % (95.0-99.0) 03/19/19 04:23 PT/INR, D-dimer PT 16.3 Sec. (12.2-14.9) H 03/01/19 09:39 INR 1.35 (0.87-1.13) H 03/01/19 09:39 D-Dimer 2987.82 ng/mlDDU (0-234) H 02/22/19 05:54 Abnormal lab findings: Abnormal Labs 02/21/19 02/21/19 02/21/19 18:30 18:30 18:30 WBC RBC 3.26 L Hgb 8.8 L Hct 29.0 L MCH 27 L MCHC 30 L RDW 19.1 H Lymph % (Auto) 6.1 L Pierce % (Auto) Eos % (Auto) Lymph # 0.4 L Pierce # Eos # Seg Neutrophils % 86.2 H Seg Neuts % (Manual) Lymphocytes % (Manual) Eosinophils % (Manual) Seg Neutrophils # Lymphocytes # (Manual) Eosinophils # (Manual) PT INR D-Dimer POC ABG pH POC ABG pCO2 POC ABG pO2 ABG pO2 ABG HCO3 ABG Base Excess ABG Hemoglobin Oxyhemoglobin Sodium 133 L Potassium 3.3 L Chloride 93.1 L Carbon Dioxide 33 H BUN Creatinine Glucose 161 H POC Glucose Calcium Phosphorus Magnesium ALT Alkaline Phosphatase 136 H Total Creatine Kinase 37 L CK-MB (CK-2) Rel Index Troponin T 0.192 H* Albumin 2.4 L LDL Cholesterol Direct 36 L PTH Intact Salicylates Acetaminophen Crossmatch 02/21/19 02/21/19 02/21/19 18:42 20:04 20:04 WBC RBC Hgb Hct MCH MCHC RDW Lymph % (Auto) Pierce % (Auto) Eos % (Auto) Lymph # Pierce # Eos # Seg Neutrophils % Seg Neuts % (Manual) Lymphocytes % (Manual) Eosinophils % (Manual) Seg Neutrophils # Lymphocytes # (Manual) Eosinophils # (Manual) PT INR D-Dimer POC ABG pH POC ABG pCO2 56.7 H POC ABG pO2 291 H ABG pO2 ABG HCO3 ABG Base Excess ABG Hemoglobin Oxyhemoglobin Sodium Potassium Chloride Carbon Dioxide BUN Creatinine Glucose POC Glucose Calcium Phosphorus Magnesium ALT Alkaline Phosphatase Total Creatine Kinase CK-MB (CK-2) Rel Index Troponin T Albumin LDL Cholesterol Direct PTH Intact Salicylates < 0.3 L Acetaminophen < 5.0 L Crossmatch 02/21/19 02/22/19 02/22/19 22:35 03:42 03:42 WBC RBC 3.20 L Hgb 8.8 L Hct 27.6 L MCH MCHC RDW 18.9 H Lymph % (Auto) 7.4 L Pierce % (Auto) Eos % (Auto) Lymph # 0.7 L Pierce # Eos # Seg Neutrophils % 84.7 H Seg Neuts % (Manual) Lymphocytes % (Manual) Eosinophils % (Manual) Seg Neutrophils # Lymphocytes # (Manual) Eosinophils # (Manual) PT INR D-Dimer POC ABG pH POC ABG pCO2 POC ABG pO2 ABG pO2 ABG HCO3 ABG Base Excess ABG Hemoglobin Oxyhemoglobin Sodium 134 L Potassium 2.6 L* D Chloride Carbon Dioxide BUN Creatinine Glucose POC Glucose Calcium Phosphorus Magnesium ALT Alkaline Phosphatase Total Creatine Kinase CK-MB (CK-2) Rel Index 5.2 H Troponin T 0.202 H* Albumin LDL Cholesterol Direct PTH Intact Salicylates Acetaminophen Crossmatch 02/22/19 02/22/19 02/22/19 03:42 05:54 09:04 WBC RBC Hgb Hct MCH MCHC RDW Lymph % (Auto) Pierce % (Auto) Eos % (Auto) Lymph # Pierce # Eos # Seg Neutrophils % Seg Neuts % (Manual) Lymphocytes % (Manual) Eosinophils % (Manual) Seg Neutrophils # Lymphocytes # (Manual) Eosinophils # (Manual) PT INR D-Dimer 2987.82 H POC ABG pH 7.451 H POC ABG pCO2 POC ABG pO2 ABG pO2 ABG HCO3 ABG Base Excess ABG Hemoglobin Oxyhemoglobin Sodium Potassium Chloride Carbon Dioxide BUN Creatinine Glucose POC Glucose Calcium Phosphorus Magnesium ALT Alkaline Phosphatase Total Creatine Kinase CK-MB (CK-2) Rel Index 5.7 H Troponin T 0.193 H* Albumin LDL Cholesterol Direct PTH Intact Salicylates Acetaminophen Crossmatch 02/22/19 02/22/19 02/23/19 10:36 23:56 00:52 WBC RBC Hgb Hct MCH MCHC RDW Lymph % (Auto) Pierce % (Auto) Eos % (Auto) Lymph # Pierce # Eos # Seg Neutrophils % Seg Neuts % (Manual) Lymphocytes % (Manual) Eosinophils % (Manual) Seg Neutrophils # Lymphocytes # (Manual) Eosinophils # (Manual) PT INR D-Dimer POC ABG pH POC ABG pCO2 POC ABG pO2 ABG pO2 ABG HCO3 ABG Base Excess ABG Hemoglobin Oxyhemoglobin Sodium Potassium 3.1 L Chloride Carbon Dioxide BUN Creatinine Glucose POC Glucose 58 L 111 H Calcium Phosphorus Magnesium ALT Alkaline Phosphatase Total Creatine Kinase CK-MB (CK-2) Rel Index Troponin T Albumin LDL Cholesterol Direct PTH Intact Salicylates Acetaminophen Crossmatch 02/23/19 02/23/19 02/23/19 05:00 06:35 14:26 WBC RBC Hgb Hct MCH MCHC RDW Lymph % (Auto) Pierce % (Auto) Eos % (Auto) Lymph # Pierce # Eos # Seg Neutrophils % Seg Neuts % (Manual) Lymphocytes % (Manual) Eosinophils % (Manual) Seg Neutrophils # Lymphocytes # (Manual) Eosinophils # (Manual) PT INR D-Dimer POC ABG pH POC ABG pCO2 POC ABG pO2 ABG pO2 ABG HCO3 ABG Base Excess ABG Hemoglobin Oxyhemoglobin Sodium 135 L Potassium 3.1 L Chloride Carbon Dioxide BUN 21 H Creatinine 2.0 H Glucose 57 L POC Glucose 64 L 62 L Calcium Phosphorus Magnesium ALT Alkaline Phosphatase Total Creatine Kinase CK-MB (CK-2) Rel Index Troponin T Albumin LDL Cholesterol Direct PTH Intact Salicylates Acetaminophen Crossmatch 02/24/19 02/24/19 02/24/19 02:11 04:12 04:55 WBC RBC 2.84 L Hgb 7.8 L Hct 24.5 L MCH MCHC RDW 19.5 H Lymph % (Auto) Pierce % (Auto) Eos % (Auto) Lymph # Pierce # Eos # Seg Neutrophils % Seg Neuts % (Manual) Lymphocytes % (Manual) Eosinophils % (Manual) Seg Neutrophils # Lymphocytes # (Manual) Eosinophils # (Manual) PT INR D-Dimer POC ABG pH 7.511 H POC ABG pCO2 33.9 L POC ABG pO2 62 L ABG pO2 ABG HCO3 ABG Base Excess ABG Hemoglobin Oxyhemoglobin Sodium Potassium Chloride Carbon Dioxide BUN Creatinine Glucose POC Glucose 69 L Calcium Phosphorus Magnesium ALT Alkaline Phosphatase Total Creatine Kinase CK-MB (CK-2) Rel Index Troponin T Albumin LDL Cholesterol Direct PTH Intact Salicylates Acetaminophen Crossmatch 02/24/19 02/24/19 02/25/19 04:55 05:41 04:45 WBC RBC Hgb Hct MCH MCHC RDW Lymph % (Auto) Pierce % (Auto) Eos % (Auto) Lymph # Pierce # Eos # Seg Neutrophils % Seg Neuts % (Manual) Lymphocytes % (Manual) Eosinophils % (Manual) Seg Neutrophils # Lymphocytes # (Manual) Eosinophils # (Manual) PT INR D-Dimer POC ABG pH 7.466 H POC ABG pCO2 POC ABG pO2 75 L ABG pO2 ABG HCO3 ABG Base Excess ABG Hemoglobin Oxyhemoglobin Sodium Potassium Chloride Carbon Dioxide BUN Creatinine 1.8 H Glucose 73 L POC Glucose 127 H Calcium Phosphorus Magnesium ALT Alkaline Phosphatase Total Creatine Kinase CK-MB (CK-2) Rel Index Troponin T Albumin LDL Cholesterol Direct PTH Intact Salicylates Acetaminophen Crossmatch 02/25/19 02/25/19 02/26/19 16:34 21:33 03:45 WBC RBC 2.96 L Hgb 8.0 L Hct 25.8 L MCH 27 L MCHC 31 L RDW 20.0 H Lymph % (Auto) Pierce % (Auto) Eos % (Auto) Lymph # Pierce # Eos # Seg Neutrophils % Seg Neuts % (Manual) Lymphocytes % (Manual) Eosinophils % (Manual) Seg Neutrophils # Lymphocytes # (Manual) Eosinophils # (Manual) PT INR D-Dimer POC ABG pH POC ABG pCO2 POC ABG pO2 ABG pO2 ABG HCO3 ABG Base Excess ABG Hemoglobin Oxyhemoglobin Sodium Potassium Chloride Carbon Dioxide BUN Creatinine Glucose POC Glucose 141 H 106 H Calcium Phosphorus Magnesium ALT Alkaline Phosphatase Total Creatine Kinase CK-MB (CK-2) Rel Index Troponin T Albumin LDL Cholesterol Direct PTH Intact Salicylates Acetaminophen Crossmatch 02/26/19 02/26/19 02/26/19 03:45 04:13 07:53 WBC RBC Hgb Hct MCH MCHC RDW Lymph % (Auto) Pierce % (Auto) Eos % (Auto) Lymph # Pierce # Eos # Seg Neutrophils % Seg Neuts % (Manual) Lymphocytes % (Manual) Eosinophils % (Manual) Seg Neutrophils # Lymphocytes # (Manual) Eosinophils # (Manual) PT INR D-Dimer POC ABG pH 7.470 H POC ABG pCO2 POC ABG pO2 ABG pO2 ABG HCO3 ABG Base Excess ABG Hemoglobin Oxyhemoglobin Sodium Potassium Chloride Carbon Dioxide BUN Creatinine 1.8 H Glucose POC Glucose 110 H Calcium Phosphorus Magnesium ALT Alkaline Phosphatase Total Creatine Kinase CK-MB (CK-2) Rel Index Troponin T Albumin LDL Cholesterol Direct PTH Intact Salicylates Acetaminophen Crossmatch 02/26/19 02/26/19 02/27/19 11:56 17:43 00:12 WBC RBC Hgb Hct MCH MCHC RDW Lymph % (Auto) Pierce % (Auto) Eos % (Auto) Lymph # Pierce # Eos # Seg Neutrophils % Seg Neuts % (Manual) Lymphocytes % (Manual) Eosinophils % (Manual) Seg Neutrophils # Lymphocytes # (Manual) Eosinophils # (Manual) PT INR D-Dimer POC ABG pH POC ABG pCO2 POC ABG pO2 ABG pO2 ABG HCO3 ABG Base Excess ABG Hemoglobin Oxyhemoglobin Sodium Potassium Chloride Carbon Dioxide BUN Creatinine Glucose POC Glucose 112 H 127 H 127 H Calcium Phosphorus Magnesium ALT Alkaline Phosphatase Total Creatine Kinase CK-MB (CK-2) Rel Index Troponin T Albumin LDL Cholesterol Direct PTH Intact Salicylates Acetaminophen Crossmatch 02/27/19 02/27/19 02/27/19 04:35 13:15 18:02 WBC RBC Hgb Hct MCH MCHC RDW Lymph % (Auto) Pierce % (Auto) Eos % (Auto) Lymph # Pierce # Eos # Seg Neutrophils % Seg Neuts % (Manual) Lymphocytes % (Manual) Eosinophils % (Manual) Seg Neutrophils # Lymphocytes # (Manual) Eosinophils # (Manual) PT INR D-Dimer POC ABG pH 7.483 H POC ABG pCO2 POC ABG pO2 61 L ABG pO2 ABG HCO3 ABG Base Excess ABG Hemoglobin Oxyhemoglobin Sodium Potassium Chloride Carbon Dioxide BUN Creatinine Glucose POC Glucose 143 H 106 H Calcium Phosphorus Magnesium ALT Alkaline Phosphatase Total Creatine Kinase CK-MB (CK-2) Rel Index Troponin T Albumin LDL Cholesterol Direct PTH Intact Salicylates Acetaminophen Crossmatch 02/28/19 02/28/19 02/28/19 05:50 11:59 17:52 WBC RBC Hgb Hct MCH MCHC RDW Lymph % (Auto) Pierce % (Auto) Eos % (Auto) Lymph # Pierce # Eos # Seg Neutrophils % Seg Neuts % (Manual) Lymphocytes % (Manual) Eosinophils % (Manual) Seg Neutrophils # Lymphocytes # (Manual) Eosinophils # (Manual) PT INR D-Dimer POC ABG pH POC ABG pCO2 POC ABG pO2 ABG pO2 ABG HCO3 ABG Base Excess ABG Hemoglobin Oxyhemoglobin Sodium Potassium Chloride Carbon Dioxide BUN Creatinine Glucose POC Glucose 134 H 128 H 142 H Calcium Phosphorus Magnesium ALT Alkaline Phosphatase Total Creatine Kinase CK-MB (CK-2) Rel Index Troponin T Albumin LDL Cholesterol Direct PTH Intact Salicylates Acetaminophen Crossmatch 02/28/19 03/01/19 03/01/19 23:13 05:40 09:39 WBC RBC Hgb Hct MCH MCHC RDW Lymph % (Auto) Pierce % (Auto) Eos % (Auto) Lymph # Pierce # Eos # Seg Neutrophils % Seg Neuts % (Manual) Lymphocytes % (Manual) Eosinophils % (Manual) Seg Neutrophils # Lymphocytes # (Manual) Eosinophils # (Manual) PT 16.3 H INR 1.35 H D-Dimer POC ABG pH POC ABG pCO2 POC ABG pO2 ABG pO2 ABG HCO3 ABG Base Excess ABG Hemoglobin Oxyhemoglobin Sodium Potassium Chloride Carbon Dioxide BUN Creatinine Glucose POC Glucose 112 H 111 H Calcium Phosphorus Magnesium ALT Alkaline Phosphatase Total Creatine Kinase CK-MB (CK-2) Rel Index Troponin T Albumin LDL Cholesterol Direct PTH Intact Salicylates Acetaminophen Crossmatch 03/01/19 03/01/19 03/01/19 11:56 13:54 17:59 WBC RBC Hgb Hct MCH MCHC RDW Lymph % (Auto) Pierce % (Auto) Eos % (Auto) Lymph # Pierce # Eos # Seg Neutrophils % Seg Neuts % (Manual) Lymphocytes % (Manual) Eosinophils % (Manual) Seg Neutrophils # Lymphocytes # (Manual) Eosinophils # (Manual) PT INR D-Dimer POC ABG pH POC ABG pCO2 POC ABG pO2 ABG pO2 ABG HCO3 ABG Base Excess ABG Hemoglobin Oxyhemoglobin Sodium Potassium Chloride Carbon Dioxide BUN 33 H Creatinine 2.8 H D Glucose 176 H POC Glucose 199 H 147 H Calcium Phosphorus Magnesium ALT Alkaline Phosphatase Total Creatine Kinase CK-MB (CK-2) Rel Index Troponin T Albumin LDL Cholesterol Direct PTH Intact Salicylates Acetaminophen Crossmatch 03/02/19 03/02/19 03/02/19 05:15 05:15 05:15 WBC RBC 2.73 L Hgb 7.4 L Hct 23.0 L MCH 27 L MCHC RDW 19.9 H Lymph % (Auto) Pierce % (Auto) 7.9 H Eos % (Auto) 7.6 H Lymph # 1.0 L Pierce # Eos # 0.5 H Seg Neutrophils % Seg Neuts % (Manual) Lymphocytes % (Manual) Eosinophils % (Manual) Seg Neutrophils # Lymphocytes # (Manual) Eosinophils # (Manual) PT INR D-Dimer POC ABG pH POC ABG pCO2 POC ABG pO2 ABG pO2 ABG HCO3 ABG Base Excess ABG Hemoglobin Oxyhemoglobin Sodium Potassium Chloride Carbon Dioxide BUN 43 H Creatinine 3.2 H Glucose POC Glucose Calcium Phosphorus 2.30 L Magnesium ALT Alkaline Phosphatase Total Creatine Kinase CK-MB (CK-2) Rel Index Troponin T Albumin LDL Cholesterol Direct PTH Intact 267.6 H Salicylates Acetaminophen Crossmatch 03/02/19 03/02/19 03/03/19 12:32 18:20 13:30 WBC RBC Hgb Hct MCH MCHC RDW Lymph % (Auto) Pierce % (Auto) Eos % (Auto) Lymph # Pierce # Eos # Seg Neutrophils % Seg Neuts % (Manual) Lymphocytes % (Manual) Eosinophils % (Manual) Seg Neutrophils # Lymphocytes # (Manual) Eosinophils # (Manual) PT INR D-Dimer POC ABG pH POC ABG pCO2 POC ABG pO2 ABG pO2 ABG HCO3 ABG Base Excess ABG Hemoglobin Oxyhemoglobin Sodium Potassium Chloride 97.3 L Carbon Dioxide BUN 26 H Creatinine 2.2 H Glucose 73 L POC Glucose 111 H 156 H Calcium Phosphorus Magnesium ALT Alkaline Phosphatase Total Creatine Kinase CK-MB (CK-2) Rel Index Troponin T Albumin LDL Cholesterol Direct PTH Intact Salicylates Acetaminophen Crossmatch 03/04/19 03/04/19 03/04/19 00:02 05:37 05:40 WBC RBC 2.63 L Hgb 7.2 L Hct 22.2 L MCH MCHC RDW 20.2 H Lymph % (Auto) 10.5 L Pierce % (Auto) Eos % (Auto) 4.6 H Lymph # 0.7 L Pierce # Eos # Seg Neutrophils % 76.9 H Seg Neuts % (Manual) Lymphocytes % (Manual) Eosinophils % (Manual) Seg Neutrophils # Lymphocytes # (Manual) Eosinophils # (Manual) PT INR D-Dimer POC ABG pH POC ABG pCO2 POC ABG pO2 ABG pO2 ABG HCO3 ABG Base Excess ABG Hemoglobin Oxyhemoglobin Sodium Potassium Chloride Carbon Dioxide BUN Creatinine Glucose POC Glucose 136 H 123 H Calcium Phosphorus Magnesium ALT Alkaline Phosphatase Total Creatine Kinase CK-MB (CK-2) Rel Index Troponin T Albumin LDL Cholesterol Direct PTH Intact Salicylates Acetaminophen Crossmatch 03/04/19 03/04/19 03/04/19 05:40 11:39 23:20 WBC RBC Hgb Hct MCH MCHC RDW Lymph % (Auto) Pierce % (Auto) Eos % (Auto) Lymph # Pierce # Eos # Seg Neutrophils % Seg Neuts % (Manual) Lymphocytes % (Manual) Eosinophils % (Manual) Seg Neutrophils # Lymphocytes # (Manual) Eosinophils # (Manual) PT INR D-Dimer POC ABG pH POC ABG pCO2 POC ABG pO2 ABG pO2 ABG HCO3 ABG Base Excess ABG Hemoglobin Oxyhemoglobin Sodium Potassium Chloride Carbon Dioxide BUN 34 H Creatinine 2.7 H Glucose 114 H POC Glucose 175 H 151 H Calcium Phosphorus Magnesium ALT Alkaline Phosphatase Total Creatine Kinase CK-MB (CK-2) Rel Index Troponin T Albumin LDL Cholesterol Direct PTH Intact Salicylates Acetaminophen Crossmatch 03/05/19 03/05/19 03/05/19 05:37 12:08 17:11 WBC RBC Hgb Hct MCH MCHC RDW Lymph % (Auto) Pierce % (Auto) Eos % (Auto) Lymph # Pierce # Eos # Seg Neutrophils % Seg Neuts % (Manual) Lymphocytes % (Manual) Eosinophils % (Manual) Seg Neutrophils # Lymphocytes # (Manual) Eosinophils # (Manual) PT INR D-Dimer POC ABG pH POC ABG pCO2 POC ABG pO2 ABG pO2 ABG HCO3 ABG Base Excess ABG Hemoglobin Oxyhemoglobin Sodium Potassium Chloride Carbon Dioxide BUN Creatinine Glucose POC Glucose 134 H 135 H 135 H Calcium Phosphorus Magnesium ALT Alkaline Phosphatase Total Creatine Kinase CK-MB (CK-2) Rel Index Troponin T Albumin LDL Cholesterol Direct PTH Intact Salicylates Acetaminophen Crossmatch 03/06/19 03/06/19 03/06/19 00:16 13:05 18:09 WBC RBC Hgb Hct MCH MCHC RDW Lymph % (Auto) Pierce % (Auto) Eos % (Auto) Lymph # Pierce # Eos # Seg Neutrophils % Seg Neuts % (Manual) Lymphocytes % (Manual) Eosinophils % (Manual) Seg Neutrophils # Lymphocytes # (Manual) Eosinophils # (Manual) PT INR D-Dimer POC ABG pH POC ABG pCO2 POC ABG pO2 ABG pO2 ABG HCO3 ABG Base Excess ABG Hemoglobin Oxyhemoglobin Sodium Potassium Chloride Carbon Dioxide BUN Creatinine Glucose POC Glucose 117 H 113 H 131 H Calcium Phosphorus Magnesium ALT Alkaline Phosphatase Total Creatine Kinase CK-MB (CK-2) Rel Index Troponin T Albumin LDL Cholesterol Direct PTH Intact Salicylates Acetaminophen Crossmatch 03/07/19 03/08/19 03/08/19 05:25 05:33 16:00 WBC RBC 2.44 L Hgb 6.6 L Hct 20.8 L MCH 27 L MCHC RDW 19.2 H Lymph % (Auto) Pierce % (Auto) Eos % (Auto) 8.6 H Lymph # 0.8 L Pierce # Eos # 0.5 H Seg Neutrophils % 70.7 H Seg Neuts % (Manual) Lymphocytes % (Manual) Eosinophils % (Manual) Seg Neutrophils # Lymphocytes # (Manual) Eosinophils # (Manual) PT INR D-Dimer POC ABG pH POC ABG pCO2 POC ABG pO2 ABG pO2 ABG HCO3 ABG Base Excess ABG Hemoglobin Oxyhemoglobin Sodium Potassium Chloride Carbon Dioxide BUN Creatinine Glucose POC Glucose 106 H 108 H Calcium Phosphorus Magnesium ALT Alkaline Phosphatase Total Creatine Kinase CK-MB (CK-2) Rel Index Troponin T Albumin LDL Cholesterol Direct PTH Intact Salicylates Acetaminophen Crossmatch 03/08/19 03/08/19 03/08/19 16:00 18:38 Unknown WBC RBC Hgb Hct MCH MCHC RDW Lymph % (Auto) Pierce % (Auto) Eos % (Auto) Lymph # Pierce # Eos # Seg Neutrophils % Seg Neuts % (Manual) Lymphocytes % (Manual) Eosinophils % (Manual) Seg Neutrophils # Lymphocytes # (Manual) Eosinophils # (Manual) PT INR D-Dimer POC ABG pH POC ABG pCO2 POC ABG pO2 ABG pO2 ABG HCO3 ABG Base Excess ABG Hemoglobin Oxyhemoglobin Sodium Potassium 5.4 H D Chloride Carbon Dioxide BUN 47 H Creatinine 2.6 H Glucose POC Glucose 123 H Calcium Phosphorus Magnesium ALT < 5 L Alkaline Phosphatase Total Creatine Kinase CK-MB (CK-2) Rel Index Troponin T Albumin 2.2 L LDL Cholesterol Direct PTH Intact Salicylates Acetaminophen Crossmatch See Detail 03/09/19 03/09/19 03/09/19 10:48 12:28 13:53 WBC RBC 2.85 L Hgb 7.7 L Hct 24.2 L MCH 27 L MCHC RDW 18.7 H Lymph % (Auto) Pierce % (Auto) Eos % (Auto) Lymph # Pierce # Eos # Seg Neutrophils % Seg Neuts % (Manual) Lymphocytes % (Manual) Eosinophils % (Manual) Seg Neutrophils # Lymphocytes # (Manual) Eosinophils # (Manual) PT INR D-Dimer POC ABG pH POC ABG pCO2 POC ABG pO2 ABG pO2 ABG HCO3 30.5 H ABG Base Excess 5.6 H ABG Hemoglobin 8.1 L Oxyhemoglobin 93.8 L Sodium Potassium Chloride Carbon Dioxide BUN Creatinine Glucose POC Glucose 114 H Calcium Phosphorus Magnesium ALT Alkaline Phosphatase Total Creatine Kinase CK-MB (CK-2) Rel Index Troponin T Albumin LDL Cholesterol Direct PTH Intact Salicylates Acetaminophen Crossmatch 03/09/19 03/09/19 03/10/19 17:58 23:53 12:01 WBC RBC Hgb Hct MCH MCHC RDW Lymph % (Auto) Pierce % (Auto) Eos % (Auto) Lymph # Pierce # Eos # Seg Neutrophils % Seg Neuts % (Manual) Lymphocytes % (Manual) Eosinophils % (Manual) Seg Neutrophils # Lymphocytes # (Manual) Eosinophils # (Manual) PT INR D-Dimer POC ABG pH POC ABG pCO2 POC ABG pO2 ABG pO2 ABG HCO3 ABG Base Excess ABG Hemoglobin Oxyhemoglobin Sodium Potassium Chloride Carbon Dioxide BUN Creatinine Glucose POC Glucose 108 H 128 H 144 H Calcium Phosphorus Magnesium ALT Alkaline Phosphatase Total Creatine Kinase CK-MB (CK-2) Rel Index Troponin T Albumin LDL Cholesterol Direct PTH Intact Salicylates Acetaminophen Crossmatch 03/10/19 03/11/19 03/11/19 16:50 00:24 05:02 WBC RBC Hgb Hct MCH MCHC RDW Lymph % (Auto) Pierce % (Auto) Eos % (Auto) Lymph # Pierce # Eos # Seg Neutrophils % Seg Neuts % (Manual) Lymphocytes % (Manual) Eosinophils % (Manual) Seg Neutrophils # Lymphocytes # (Manual) Eosinophils # (Manual) PT INR D-Dimer POC ABG pH POC ABG pCO2 POC ABG pO2 ABG pO2 ABG HCO3 ABG Base Excess ABG Hemoglobin Oxyhemoglobin Sodium Potassium Chloride Carbon Dioxide BUN Creatinine Glucose POC Glucose 147 H 123 H 120 H Calcium Phosphorus Magnesium ALT Alkaline Phosphatase Total Creatine Kinase CK-MB (CK-2) Rel Index Troponin T Albumin LDL Cholesterol Direct PTH Intact Salicylates Acetaminophen Crossmatch 03/11/19 03/11/19 03/11/19 11:56 12:20 18:37 WBC RBC Hgb Hct MCH MCHC RDW Lymph % (Auto) Pierce % (Auto) Eos % (Auto) Lymph # Pierce # Eos # Seg Neutrophils % Seg Neuts % (Manual) Lymphocytes % (Manual) Eosinophils % (Manual) Seg Neutrophils # Lymphocytes # (Manual) Eosinophils # (Manual) PT INR D-Dimer POC ABG pH POC ABG pCO2 POC ABG pO2 ABG pO2 ABG HCO3 ABG Base Excess ABG Hemoglobin Oxyhemoglobin Sodium Potassium 5.2 H Chloride Carbon Dioxide BUN Creatinine Glucose POC Glucose 123 H 125 H Calcium Phosphorus Magnesium ALT Alkaline Phosphatase Total Creatine Kinase CK-MB (CK-2) Rel Index Troponin T Albumin LDL Cholesterol Direct PTH Intact Salicylates Acetaminophen Crossmatch 03/11/19 03/12/19 03/12/19 22:52 12:04 18:25 WBC RBC Hgb Hct MCH MCHC RDW Lymph % (Auto) Pierce % (Auto) Eos % (Auto) Lymph # [place] # Eos # Seg Neutrophils % Seg Neuts % (Manual) Lymphocytes % (Manual) Eosinophils % (Manual) Seg Neutrophils # Lymphocytes # (Manual) Eosinophils # (Manual) PT INR D-Dimer POC ABG pH POC ABG pCO2 POC ABG pO2 ABG pO2 ABG HCO3 ABG Base Excess ABG Hemoglobin Oxyhemoglobin Sodium Potassium Chloride Carbon Dioxide BUN Creatinine Glucose POC Glucose 110 H 106 H 118 H Calcium Phosphorus Magnesium ALT Alkaline Phosphatase Total Creatine Kinase CK-MB (CK-2) Rel Index Troponin T Albumin LDL Cholesterol Direct PTH Intact Salicylates Acetaminophen Crossmatch 03/12/19 03/13/19 03/13/19 23:36 04:38 04:38 WBC RBC 2.95 L Hgb 7.9 L Hct 24.9 L MCH 27 L MCHC RDW 19.9 H Lymph % (Auto) 11.1 L Pierce % (Auto) 8.1 H Eos % (Auto) 4.4 H Lymph # 0.9 L [place] # Eos # Seg Neutrophils % 75.4 H Seg Neuts % (Manual) Lymphocytes % (Manual) Eosinophils % (Manual) Seg Neutrophils # Lymphocytes # (Manual) Eosinophils # (Manual) PT INR D-Dimer POC ABG pH POC ABG pCO2 POC ABG pO2 ABG pO2 ABG HCO3 ABG Base Excess ABG Hemoglobin Oxyhemoglobin Sodium 136 L Potassium 5.1 H Chloride 93.8 L Carbon Dioxide BUN 48 H Creatinine 2.7 H Glucose 102 H POC Glucose 115 H Calcium Phosphorus Magnesium ALT < 5 L Alkaline Phosphatase 143 H Total Creatine Kinase CK-MB (CK-2) Rel Index Troponin T Albumin 2.5 L LDL Cholesterol Direct PTH Intact Salicylates Acetaminophen Crossmatch 03/13/19 03/13/19 03/13/19 05:33 13:37 18:03 WBC RBC Hgb Hct MCH MCHC RDW Lymph % (Auto) Pierce % (Auto) Eos % (Auto) Lymph # [place] # Eos # Seg Neutrophils % Seg Neuts % (Manual) Lymphocytes % (Manual) Eosinophils % (Manual) Seg Neutrophils # Lymphocytes # (Manual) Eosinophils # (Manual) PT INR D-Dimer POC ABG pH POC ABG pCO2 POC ABG pO2 ABG pO2 ABG HCO3 ABG Base Excess ABG Hemoglobin Oxyhemoglobin Sodium Potassium Chloride Carbon Dioxide BUN Creatinine Glucose POC Glucose 140 H 150 H 158 H Calcium Phosphorus Magnesium ALT Alkaline Phosphatase Total Creatine Kinase CK-MB (CK-2) Rel Index Troponin T Albumin LDL Cholesterol Direct PTH Intact Salicylates Acetaminophen Crossmatch 03/13/19 03/14/19 03/14/19 23:32 05:24 12:20 WBC RBC Hgb Hct MCH MCHC RDW Lymph % (Auto) Pierce % (Auto) Eos % (Auto) Lymph # [place] # Eos # Seg Neutrophils % Seg Neuts % (Manual) Lymphocytes % (Manual) Eosinophils % (Manual) Seg Neutrophils # Lymphocytes # (Manual) Eosinophils # (Manual) PT INR D-Dimer POC ABG pH POC ABG pCO2 POC ABG pO2 ABG pO2 ABG HCO3 ABG Base Excess ABG Hemoglobin Oxyhemoglobin Sodium Potassium Chloride Carbon Dioxide BUN Creatinine Glucose POC Glucose 162 H 146 H 127 H Calcium Phosphorus Magnesium ALT Alkaline Phosphatase Total Creatine Kinase CK-MB (CK-2) Rel Index Troponin T Albumin LDL Cholesterol Direct PTH Intact Salicylates Acetaminophen Crossmatch 03/14/19 03/14/19 03/15/19 18:05 23:57 04:38 WBC 12.8 H RBC 3.11 L Hgb 8.1 L Hct 26.5 L MCH 26 L MCHC 31 L RDW 19.7 H Lymph % (Auto) 4.4 L [place] % (Auto) 7.4 H Eos % (Auto) Lymph # 0.6 L [place] # 0.9 H Eos # Seg Neutrophils % 87.3 H Seg Neuts % (Manual) Lymphocytes % (Manual) Eosinophils % (Manual) Seg Neutrophils # 11.2 H Lymphocytes # (Manual) Eosinophils # (Manual) PT INR D-Dimer POC ABG pH POC ABG pCO2 POC ABG pO2 ABG pO2 ABG HCO3 ABG Base Excess ABG Hemoglobin Oxyhemoglobin Sodium Potassium Chloride Carbon Dioxide BUN Creatinine Glucose POC Glucose 142 H 155 H Calcium Phosphorus Magnesium ALT Alkaline Phosphatase Total Creatine Kinase CK-MB (CK-2) Rel Index Troponin T Albumin LDL Cholesterol Direct PTH Intact Salicylates Acetaminophen Crossmatch 03/15/19 03/15/19 03/15/19 04:38 05:31 11:32 WBC RBC Hgb Hct MCH MCHC RDW Lymph % (Auto) Pierce % (Auto) Eos % (Auto) Lymph # [place] # Eos # Seg Neutrophils % Seg Neuts % (Manual) Lymphocytes % (Manual) Eosinophils % (Manual) Seg Neutrophils # Lymphocytes # (Manual) Eosinophils # (Manual) PT INR D-Dimer POC ABG pH POC ABG pCO2 POC ABG pO2 ABG pO2 ABG HCO3 ABG Base Excess ABG Hemoglobin Oxyhemoglobin Sodium 135 L Potassium Chloride 91.9 L Carbon Dioxide BUN 54 H Creatinine 2.8 H Glucose 128 H POC Glucose 160 H 109 H Calcium 11.1 H Phosphorus Magnesium ALT Alkaline Phosphatase 161 H Total Creatine Kinase CK-MB (CK-2) Rel Index Troponin T Albumin 2.3 L LDL Cholesterol Direct PTH Intact Salicylates Acetaminophen Crossmatch 03/15/19 03/15/19 03/16/19 18:15 23:41 05:40 WBC RBC Hgb Hct MCH MCHC RDW Lymph % (Auto) Pierce % (Auto) Eos % (Auto) Lymph # [place] # Eos # Seg Neutrophils % Seg Neuts % (Manual) Lymphocytes % (Manual) Eosinophils % (Manual) Seg Neutrophils # Lymphocytes # (Manual) Eosinophils # (Manual) PT INR D-Dimer POC ABG pH POC ABG pCO2 POC ABG pO2 ABG pO2 ABG HCO3 ABG Base Excess ABG Hemoglobin Oxyhemoglobin Sodium Potassium Chloride Carbon Dioxide BUN Creatinine Glucose POC Glucose 151 H 110 H 163 H Calcium Phosphorus Magnesium ALT Alkaline Phosphatase Total Creatine Kinase CK-MB (CK-2) Rel Index Troponin T Albumin LDL Cholesterol Direct PTH Intact Salicylates Acetaminophen Crossmatch 03/16/19 03/16/19 03/16/19 11:55 17:04 23:58 WBC RBC Hgb Hct MCH MCHC RDW Lymph % (Auto) [place] % (Auto) Eos % (Auto) Lymph # [place] # Eos # Seg Neutrophils % Seg Neuts % (Manual) Lymphocytes % (Manual) Eosinophils % (Manual) Seg Neutrophils # Lymphocytes # (Manual) Eosinophils # (Manual) PT INR D-Dimer POC ABG pH POC ABG pCO2 POC ABG pO2 ABG pO2 ABG HCO3 ABG Base Excess ABG Hemoglobin Oxyhemoglobin Sodium Potassium Chloride Carbon Dioxide BUN Creatinine Glucose POC Glucose 114 H 147 H 192 H Calcium Phosphorus Magnesium ALT Alkaline Phosphatase Total Creatine Kinase CK-MB (CK-2) Rel Index Troponin T Albumin LDL Cholesterol Direct PTH Intact Salicylates Acetaminophen Crossmatch 03/17/19 03/17/19 03/17/19 05:53 11:17 17:01 WBC RBC Hgb Hct MCH MCHC RDW Lymph % (Auto) [place] % (Auto) Eos % (Auto) Lymph # [place] # Eos # Seg Neutrophils % Seg Neuts % (Manual) Lymphocytes % (Manual) Eosinophils % (Manual) Seg Neutrophils # Lymphocytes # (Manual) Eosinophils # (Manual) PT INR D-Dimer POC ABG pH POC ABG pCO2 POC ABG pO2 ABG pO2 ABG HCO3 ABG Base Excess ABG Hemoglobin Oxyhemoglobin Sodium Potassium Chloride Carbon Dioxide BUN Creatinine Glucose POC Glucose 151 H 161 H 152 H Calcium Phosphorus Magnesium ALT Alkaline Phosphatase Total Creatine Kinase CK-MB (CK-2) Rel Index Troponin T Albumin LDL Cholesterol Direct PTH Intact Salicylates Acetaminophen Crossmatch 03/17/19 03/18/19 03/18/19 21:47 04:15 04:44 WBC RBC Hgb Hct MCH MCHC RDW Lymph % (Auto) [place] % (Auto) Eos % (Auto) Lymph # [place] # Eos # Seg Neutrophils % Seg Neuts % (Manual) Lymphocytes % (Manual) Eosinophils % (Manual) Seg Neutrophils # Lymphocytes # (Manual) Eosinophils # (Manual) PT INR D-Dimer POC ABG pH POC ABG pCO2 POC ABG pO2 ABG pO2 102.8 H ABG HCO3 28.3 H ABG Base Excess ABG Hemoglobin 10.4 L Oxyhemoglobin 94.5 L Sodium Potassium Chloride Carbon Dioxide BUN Creatinine Glucose POC Glucose 170 H 150 H Calcium Phosphorus Magnesium ALT Alkaline Phosphatase Total Creatine Kinase CK-MB (CK-2) Rel Index Troponin T Albumin LDL Cholesterol Direct PTH Intact Salicylates Acetaminophen Crossmatch 03/18/19 03/18/19 03/18/19 06:38 12:12 17:47 WBC RBC Hgb Hct MCH MCHC RDW Lymph % (Auto) [place] % (Auto) Eos % (Auto) Lymph # [place] # Eos # Seg Neutrophils % Seg Neuts % (Manual) Lymphocytes % (Manual) Eosinophils % (Manual) Seg Neutrophils # Lymphocytes # (Manual) Eosinophils # (Manual) PT INR D-Dimer POC ABG pH 7.510 H POC ABG pCO2 POC ABG pO2 164 H ABG pO2 ABG HCO3 ABG Base Excess ABG Hemoglobin Oxyhemoglobin Sodium Potassium Chloride Carbon Dioxide BUN Creatinine Glucose POC Glucose 145 H 149 H Calcium Phosphorus Magnesium ALT Alkaline Phosphatase Total Creatine Kinase CK-MB (CK-2) Rel Index Troponin T Albumin LDL Cholesterol Direct PTH Intact Salicylates Acetaminophen Crossmatch 03/18/19 03/19/19 03/19/19 23:25 01:11 04:23 WBC 15.6 H RBC 2.51 L Hgb 6.5 L Hct 21.6 L MCH 26 L MCHC 30 L RDW 19.8 H Lymph % (Auto) 6.0 L [place] % (Auto) Eos % (Auto) Lymph # 0.9 L [place] # 1.0 H Eos # Seg Neutrophils % 85.5 H Seg Neuts % (Manual) Lymphocytes % (Manual) Eosinophils % (Manual) Seg Neutrophils # 13.4 H Lymphocytes # (Manual) Eosinophils # (Manual) PT INR D-Dimer POC ABG pH POC ABG pCO2 POC ABG pO2 ABG pO2 78.3 L ABG HCO3 30.7 H ABG Base Excess 5.8 H ABG Hemoglobin 5.8 L Oxyhemoglobin 94.6 L Sodium Potassium Chloride Carbon Dioxide BUN Creatinine Glucose POC Glucose 190 H Calcium Phosphorus Magnesium ALT Alkaline Phosphatase Total Creatine Kinase CK-MB (CK-2) Rel Index Troponin T Albumin LDL Cholesterol Direct PTH Intact Salicylates Acetaminophen Crossmatch 03/19/19 03/19/19 03/19/19 05:22 05:35 08:54 WBC RBC Hgb Hct MCH MCHC RDW Lymph % (Auto) [place] % (Auto) Eos % (Auto) Lymph # [place] # Eos # Seg Neutrophils % Seg Neuts % (Manual) Lymphocytes % (Manual) Eosinophils % (Manual) Seg Neutrophils # Lymphocytes # (Manual) Eosinophils # (Manual) PT INR D-Dimer POC ABG pH POC ABG pCO2 POC ABG pO2 ABG pO2 ABG HCO3 ABG Base Excess ABG Hemoglobin Oxyhemoglobin Sodium Potassium Chloride Carbon Dioxide BUN Creatinine Glucose POC Glucose 167 H Calcium Phosphorus Magnesium ALT Alkaline Phosphatase Total Creatine Kinase CK-MB (CK-2) Rel Index Troponin T Albumin LDL Cholesterol Direct PTH Intact Salicylates Acetaminophen Crossmatch See Detail See Detail 03/19/19 03/19/19 03/19/19 12:36 17:02 23:25 WBC RBC Hgb Hct MCH MCHC RDW Lymph % (Auto) [place] % (Auto) Eos % (Auto) Lymph # [place] # Eos # Seg Neutrophils % Seg Neuts % (Manual) Lymphocytes % (Manual) Eosinophils % (Manual) Seg Neutrophils # Lymphocytes # (Manual) Eosinophils # (Manual) PT INR D-Dimer POC ABG pH POC ABG pCO2 POC ABG pO2 ABG pO2 ABG HCO3 ABG Base Excess ABG Hemoglobin Oxyhemoglobin Sodium Potassium Chloride Carbon Dioxide BUN Creatinine Glucose POC Glucose 167 H 135 H 136 H Calcium Phosphorus Magnesium ALT Alkaline Phosphatase Total Creatine Kinase CK-MB (CK-2) Rel Index Troponin T Albumin LDL Cholesterol Direct PTH Intact Salicylates Acetaminophen Crossmatch 03/20/19 03/20/19 03/20/19 05:38 08:40 08:40 WBC RBC 2.61 L Hgb 7.1 L Hct 22.0 L MCH 27 L MCHC RDW 19.6 H Lymph % (Auto) 8.2 L [place] % (Auto) 8.3 H Eos % (Auto) 5.7 H Lymph # 0.8 L [place] # Eos # 0.5 H Seg Neutrophils % 77.3 H Seg Neuts % (Manual) Lymphocytes % (Manual) Eosinophils % (Manual) Seg Neutrophils # Lymphocytes # (Manual) Eosinophils # (Manual) PT INR D-Dimer POC ABG pH POC ABG pCO2 POC ABG pO2 ABG pO2 ABG HCO3 ABG Base Excess ABG Hemoglobin Oxyhemoglobin Sodium Potassium Chloride 95.9 L Carbon Dioxide BUN 69 H Creatinine 2.8 H Glucose 115 H POC Glucose 134 H Calcium 10.5 H Phosphorus Magnesium ALT Alkaline Phosphatase Total Creatine Kinase CK-MB (CK-2) Rel Index Troponin T Albumin LDL Cholesterol Direct PTH Intact Salicylates Acetaminophen Crossmatch 03/20/19 03/20/19 03/20/19 12:13 18:04 23:49 WBC RBC Hgb Hct MCH MCHC RDW Lymph % (Auto) [place] % (Auto) Eos % (Auto) Lymph # [place] # Eos # Seg Neutrophils % Seg Neuts % (Manual) Lymphocytes % (Manual) Eosinophils % (Manual) Seg Neutrophils # Lymphocytes # (Manual) Eosinophils # (Manual) PT INR D-Dimer POC ABG pH POC ABG pCO2 POC ABG pO2 ABG pO2 ABG HCO3 ABG Base Excess ABG Hemoglobin Oxyhemoglobin Sodium Potassium Chloride Carbon Dioxide BUN Creatinine Glucose POC Glucose 144 H 165 H 172 H Calcium Phosphorus Magnesium ALT Alkaline Phosphatase Total Creatine Kinase CK-MB (CK-2) Rel Index Troponin T Albumin LDL Cholesterol Direct PTH Intact Salicylates Acetaminophen Crossmatch 03/21/19 03/21/19 03/21/19 05:00 06:29 06:30 WBC RBC 2.72 L Hgb 7.4 L Hct 22.9 L MCH 27 L MCHC RDW 19.4 H Lymph % (Auto) [place] % (Auto) Eos % (Auto) Lymph # [place] # Eos # Seg Neutrophils % Seg Neuts % (Manual) 81.0 H Lymphocytes % (Manual) 8.0 L Eosinophils % (Manual) 8.0 H Seg Neutrophils # Lymphocytes # (Manual) 0.7 L Eosinophils # (Manual) 0.7 H PT INR D-Dimer POC ABG pH POC ABG pCO2 POC ABG pO2 ABG pO2 ABG HCO3 ABG Base Excess ABG Hemoglobin Oxyhemoglobin Sodium Potassium Chloride Carbon Dioxide 33 H BUN 43 H Creatinine 1.7 H Glucose 145 H POC Glucose 156 H Calcium Phosphorus Magnesium ALT Alkaline Phosphatase 212 H Total Creatine Kinase CK-MB (CK-2) Rel Index Troponin T Albumin 2.2 L LDL Cholesterol Direct PTH Intact Salicylates Acetaminophen Crossmatch 03/21/19 03/21/19 03/22/19 12:02 18:07 00:21 WBC RBC Hgb Hct MCH MCHC RDW Lymph % (Auto) [place] % (Auto) Eos % (Auto) Lymph # [place] # Eos # Seg Neutrophils % Seg Neuts % (Manual) Lymphocytes % (Manual) Eosinophils % (Manual) Seg Neutrophils # Lymphocytes # (Manual) Eosinophils # (Manual) PT INR D-Dimer POC ABG pH POC ABG pCO2 POC ABG pO2 ABG pO2 ABG HCO3 ABG Base Excess ABG Hemoglobin Oxyhemoglobin Sodium Potassium Chloride Carbon Dioxide BUN Creatinine Glucose POC Glucose 163 H 144 H 153 H Calcium Phosphorus Magnesium ALT Alkaline Phosphatase Total Creatine Kinase CK-MB (CK-2) Rel Index Troponin T Albumin LDL Cholesterol Direct PTH Intact Salicylates Acetaminophen Crossmatch 03/22/19 03/22/19 03/22/19 05:23 05:23 05:31 WBC RBC 2.58 L Hgb 7.1 L Hct 21.8 L MCH 27 L MCHC RDW 19.2 H Lymph % (Auto) [place] % (Auto) Eos % (Auto) Lymph # [place] # Eos # Seg Neutrophils % Seg Neuts % (Manual) Lymphocytes % (Manual) Eosinophils % (Manual) Seg Neutrophils # Lymphocytes # (Manual) Eosinophils # (Manual) PT INR D-Dimer POC ABG pH POC ABG pCO2 POC ABG pO2 ABG pO2 ABG HCO3 ABG Base Excess ABG Hemoglobin Oxyhemoglobin Sodium 147 H Potassium Chloride Carbon Dioxide BUN 68 H Creatinine 2.5 H Glucose POC Glucose 116 H Calcium 10.3 H Phosphorus Magnesium ALT Alkaline Phosphatase Total Creatine Kinase CK-MB (CK-2) Rel Index Troponin T Albumin LDL Cholesterol Direct PTH Intact Salicylates Acetaminophen Crossmatch 03/22/19 03/22/19 03/22/19 08:48 12:37 17:35 WBC RBC Hgb Hct MCH MCHC RDW Lymph % (Auto) [place] % (Auto) Eos % (Auto) Lymph # [place] # Eos # Seg Neutrophils % Seg Neuts % (Manual) Lymphocytes % (Manual) Eosinophils % (Manual) Seg Neutrophils # Lymphocytes # (Manual) Eosinophils # (Manual) PT INR D-Dimer POC ABG pH POC ABG pCO2 POC ABG pO2 ABG pO2 ABG HCO3 ABG Base Excess ABG Hemoglobin Oxyhemoglobin Sodium Potassium Chloride Carbon Dioxide BUN Creatinine Glucose POC Glucose 143 H 155 H Calcium Phosphorus Magnesium ALT Alkaline Phosphatase Total Creatine Kinase CK-MB (CK-2) Rel Index Troponin T Albumin LDL Cholesterol Direct PTH Intact Salicylates Acetaminophen Crossmatch See Detail 03/23/19 03/23/19 03/23/19 00:07 04:00 04:00 WBC 11.2 H RBC 2.32 L Hgb 6.4 L Hct 19.7 L* MCH MCHC RDW 19.4 H Lymph % (Auto) [place] % (Auto) Eos % (Auto) Lymph # [place] # Eos # Seg Neutrophils % Seg Neuts % (Manual) Lymphocytes % (Manual) Eosinophils % (Manual) Seg Neutrophils # Lymphocytes # (Manual) Eosinophils # (Manual) PT INR D-Dimer POC ABG pH POC ABG pCO2 POC ABG pO2 ABG pO2 ABG HCO3 ABG Base Excess ABG Hemoglobin Oxyhemoglobin Sodium 147 H Potassium 5.2 H Chloride Carbon Dioxide BUN 86 H Creatinine 3.2 H Glucose 128 H POC Glucose 135 H Calcium 10.3 H Phosphorus Magnesium ALT Alkaline Phosphatase Total Creatine Kinase CK-MB (CK-2) Rel Index Troponin T Albumin LDL Cholesterol Direct PTH Intact Salicylates Acetaminophen Crossmatch 03/23/19 03/23/19 03/23/19 05:21 11:36 11:36 WBC RBC Hgb 7.9 L Hct 25.0 L MCH MCHC RDW Lymph % (Auto) [place] % (Auto) Eos % (Auto) Lymph # [place] # Eos # Seg Neutrophils % Seg Neuts % (Manual) Lymphocytes % (Manual) Eosinophils % (Manual) Seg Neutrophils # Lymphocytes # (Manual) Eosinophils # (Manual) PT INR D-Dimer POC ABG pH POC ABG pCO2 POC ABG pO2 ABG pO2 ABG HCO3 ABG Base Excess ABG Hemoglobin Oxyhemoglobin Sodium Potassium Chloride Carbon Dioxide BUN Creatinine Glucose POC Glucose 132 H 147 H Calcium Phosphorus Magnesium ALT Alkaline Phosphatase Total Creatine Kinase CK-MB (CK-2) Rel Index Troponin T Albumin LDL Cholesterol Direct PTH Intact Salicylates Acetaminophen Crossmatch 03/23/19 03/24/19 03/24/19 17:31 01:22 04:20 WBC 12.2 H RBC 3.05 L Hgb 8.3 L Hct 25.9 L MCH 27 L MCHC RDW 18.7 H Lymph % (Auto) [place] % (Auto) Eos % (Auto) Lymph # [place] # Eos # Seg Neutrophils % Seg Neuts % (Manual) Lymphocytes % (Manual) Eosinophils % (Manual) Seg Neutrophils # Lymphocytes # (Manual) Eosinophils # (Manual) PT INR D-Dimer POC ABG pH POC ABG pCO2 POC ABG pO2 ABG pO2 ABG HCO3 ABG Base Excess ABG Hemoglobin Oxyhemoglobin Sodium Potassium Chloride Carbon Dioxide BUN Creatinine Glucose POC Glucose 182 H 113 H Calcium Phosphorus Magnesium ALT Alkaline Phosphatase Total Creatine Kinase CK-MB (CK-2) Rel Index Troponin T Albumin LDL Cholesterol Direct PTH Intact Salicylates Acetaminophen Crossmatch 03/24/19 03/24/19 03/24/19 04:20 11:59 18:14 WBC RBC Hgb Hct MCH MCHC RDW Lymph % (Auto) [place] % (Auto) Eos % (Auto) Lymph # [place] # Eos # Seg Neutrophils % Seg Neuts % (Manual) Lymphocytes % (Manual) Eosinophils % (Manual) Seg Neutrophils # Lymphocytes # (Manual) Eosinophils # (Manual) PT INR D-Dimer POC ABG pH POC ABG pCO2 POC ABG pO2 ABG pO2 ABG HCO3 ABG Base Excess ABG Hemoglobin Oxyhemoglobin Sodium Potassium Chloride 94.8 L Carbon Dioxide 32 H BUN 53 H Creatinine 2.3 H Glucose POC Glucose 163 H 134 H Calcium Phosphorus Magnesium ALT Alkaline Phosphatase Total Creatine Kinase CK-MB (CK-2) Rel Index Troponin T Albumin LDL Cholesterol Direct PTH Intact Salicylates Acetaminophen Crossmatch 03/24/19 03/25/19 03/25/19 23:15 05:52 12:02 WBC RBC Hgb Hct MCH MCHC RDW Lymph % (Auto) [place] % (Auto) Eos % (Auto) Lymph # [place] # Eos # Seg Neutrophils % Seg Neuts % (Manual) Lymphocytes % (Manual) Eosinophils % (Manual) Seg Neutrophils # Lymphocytes # (Manual) Eosinophils # (Manual) PT INR D-Dimer POC ABG pH POC ABG pCO2 POC ABG pO2 ABG pO2 ABG HCO3 ABG Base Excess ABG Hemoglobin Oxyhemoglobin Sodium Potassium Chloride Carbon Dioxide BUN Creatinine Glucose POC Glucose 129 H 123 H 125 H Calcium Phosphorus Magnesium ALT Alkaline Phosphatase Total Creatine Kinase CK-MB (CK-2) Rel Index Troponin T Albumin LDL Cholesterol Direct PTH Intact Salicylates Acetaminophen Crossmatch 03/25/19 03/26/19 03/26/19 17:27 00:30 05:35 WBC RBC 3.01 L Hgb 8.1 L Hct 25.7 L MCH 27 L MCHC RDW 19.2 H Lymph % (Auto) 11.4 L [place] % (Auto) Eos % (Auto) 8.0 H Lymph # 1.0 L [place] # Eos # 0.7 H Seg Neutrophils % 73.9 H Seg Neuts % (Manual) Lymphocytes % (Manual) Eosinophils % (Manual) Seg Neutrophils # Lymphocytes # (Manual) Eosinophils # (Manual) PT INR D-Dimer POC ABG pH POC ABG pCO2 POC ABG pO2 ABG pO2 ABG HCO3 ABG Base Excess ABG Hemoglobin Oxyhemoglobin Sodium Potassium Chloride Carbon Dioxide BUN Creatinine Glucose POC Glucose 130 H 129 H Calcium Phosphorus Magnesium ALT Alkaline Phosphatase Total Creatine Kinase CK-MB (CK-2) Rel Index Troponin T Albumin LDL Cholesterol Direct PTH Intact Salicylates Acetaminophen Crossmatch 03/26/19 03/26/19 03/26/19 05:35 05:45 12:16 WBC RBC Hgb Hct MCH MCHC RDW Lymph % (Auto) [place] % (Auto) Eos % (Auto) Lymph # [place] # Eos # Seg Neutrophils % Seg Neuts % (Manual) Lymphocytes % (Manual) Eosinophils % (Manual) Seg Neutrophils # Lymphocytes # (Manual) Eosinophils # (Manual) PT INR D-Dimer POC ABG pH POC ABG pCO2 POC ABG pO2 ABG pO2 ABG HCO3 ABG Base Excess ABG Hemoglobin Oxyhemoglobin Sodium Potassium Chloride 94.9 L Carbon Dioxide 31 H BUN 44 H Creatinine 2.0 H Glucose POC Glucose 118 H 107 H Calcium Phosphorus Magnesium ALT Alkaline Phosphatase Total Creatine Kinase CK-MB (CK-2) Rel Index Troponin T Albumin LDL Cholesterol Direct PTH Intact Salicylates Acetaminophen Crossmatch 03/26/19 03/27/19 03/27/19 17:56 00:36 05:37 WBC RBC Hgb Hct MCH MCHC RDW Lymph % (Auto) [place] % (Auto) Eos % (Auto) Lymph # [place] # Eos # Seg Neutrophils % Seg Neuts % (Manual) Lymphocytes % (Manual) Eosinophils % (Manual) Seg Neutrophils # Lymphocytes # (Manual) Eosinophils # (Manual) PT INR D-Dimer POC ABG pH POC ABG pCO2 POC ABG pO2 ABG pO2 ABG HCO3 ABG Base Excess ABG Hemoglobin Oxyhemoglobin Sodium Potassium Chloride Carbon Dioxide BUN Creatinine Glucose POC Glucose 107 H 110 H 122 H Calcium Phosphorus Magnesium ALT Alkaline Phosphatase Total Creatine Kinase CK-MB (CK-2) Rel Index Troponin T Albumin LDL Cholesterol Direct PTH Intact Salicylates Acetaminophen Crossmatch 03/27/19 03/27/19 03/28/19 11:22 18:00 05:17 WBC RBC Hgb Hct MCH MCHC RDW Lymph % (Auto) [place] % (Auto) Eos % (Auto) Lymph # [place] # Eos # Seg Neutrophils % Seg Neuts % (Manual) Lymphocytes % (Manual) Eosinophils % (Manual) Seg Neutrophils # Lymphocytes # (Manual) Eosinophils # (Manual) PT INR D-Dimer POC ABG pH POC ABG pCO2 POC ABG pO2 ABG pO2 ABG HCO3 ABG Base Excess ABG Hemoglobin Oxyhemoglobin Sodium Potassium Chloride Carbon Dioxide BUN Creatinine Glucose POC Glucose 120 H 111 H 107 H Calcium Phosphorus Magnesium ALT Alkaline Phosphatase Total Creatine Kinase CK-MB (CK-2) Rel Index Troponin T Albumin LDL Cholesterol Direct PTH Intact Salicylates Acetaminophen Crossmatch 03/28/19 03/28/19 03/29/19 12:27 18:08 05:47 WBC RBC Hgb Hct MCH MCHC RDW Lymph % (Auto) [place] % (Auto) Eos % (Auto) Lymph # [place] # Eos # Seg Neutrophils % Seg Neuts % (Manual) Lymphocytes % (Manual) Eosinophils % (Manual) Seg Neutrophils # Lymphocytes # (Manual) Eosinophils # (Manual) PT INR D-Dimer POC ABG pH POC ABG pCO2 POC ABG pO2 ABG pO2 ABG HCO3 ABG Base Excess ABG Hemoglobin Oxyhemoglobin Sodium Potassium Chloride Carbon Dioxide BUN Creatinine Glucose POC Glucose 114 H 121 H 112 H Calcium Phosphorus Magnesium ALT Alkaline Phosphatase Total Creatine Kinase CK-MB (CK-2) Rel Index Troponin T Albumin LDL Cholesterol Direct PTH Intact Salicylates Acetaminophen Crossmatch 03/29/19 03/29/19 03/30/19 12:14 18:08 00:31 WBC RBC Hgb Hct MCH MCHC RDW Lymph % (Auto) [place] % (Auto) Eos % (Auto) Lymph # [place] # Eos # Seg Neutrophils % Seg Neuts % (Manual) Lymphocytes % (Manual) Eosinophils % (Manual) Seg Neutrophils # Lymphocytes # (Manual) Eosinophils # (Manual) PT INR D-Dimer POC ABG pH POC ABG pCO2 POC ABG pO2 ABG pO2 ABG HCO3 ABG Base Excess ABG Hemoglobin Oxyhemoglobin Sodium Potassium Chloride Carbon Dioxide BUN Creatinine Glucose POC Glucose 117 H 140 H 114 H Calcium Phosphorus Magnesium ALT Alkaline Phosphatase Total Creatine Kinase CK-MB (CK-2) Rel Index Troponin T Albumin LDL Cholesterol Direct PTH Intact Salicylates Acetaminophen Crossmatch 03/30/19 03/30/19 03/30/19 10:13 10:13 23:53 WBC RBC 2.81 L Hgb 7.7 L Hct 24.3 L MCH 27 L MCHC RDW 19.0 H Lymph % (Auto) 12.2 L [place] % (Auto) Eos % (Auto) 7.9 H Lymph # 1.0 L [place] # Eos # 0.6 H Seg Neutrophils % 72.3 H Seg Neuts % (Manual) Lymphocytes % (Manual) Eosinophils % (Manual) Seg Neutrophils # Lymphocytes # (Manual) Eosinophils # (Manual) PT INR D-Dimer POC ABG pH POC ABG pCO2 POC ABG pO2 ABG pO2 ABG HCO3 ABG Base Excess ABG Hemoglobin Oxyhemoglobin Sodium Potassium 5.1 H Chloride 96.5 L Carbon Dioxide BUN 73 H Creatinine 3.9 H D Glucose POC Glucose 114 H Calcium 10.3 H Phosphorus 6.30 H Magnesium 2.70 H ALT Alkaline Phosphatase 185 H Total Creatine Kinase CK-MB (CK-2) Rel Index Troponin T Albumin 2.6 L LDL Cholesterol Direct PTH Intact Salicylates Acetaminophen Crossmatch 03/31/19 03/31/19 03/31/19 05:45 10:26 10:26 WBC RBC 3.01 L Hgb 8.2 L Hct 26.4 L MCH 27 L MCHC 31 L RDW 20.3 H Lymph % (Auto) 13.3 L Pierce % (Auto) Eos % (Auto) 7.2 H Lymph # 1.1 L Pierce # Eos # 0.6 H Seg Neutrophils % 72.1 H Seg Neuts % (Manual) Lymphocytes % (Manual) Eosinophils % (Manual) Seg Neutrophils # Lymphocytes # (Manual) Eosinophils # (Manual) PT INR D-Dimer POC ABG pH POC ABG pCO2 POC ABG pO2 ABG pO2 ABG HCO3 ABG Base Excess ABG Hemoglobin Oxyhemoglobin Sodium Potassium Chloride 96.9 L Carbon Dioxide 33 H BUN 37 H Creatinine 2.4 H Glucose POC Glucose 108 H Calcium 10.3 H Phosphorus Magnesium ALT Alkaline Phosphatase Total Creatine Kinase CK-MB (CK-2) Rel Index Troponin T Albumin LDL Cholesterol Direct PTH Intact Salicylates Acetaminophen Crossmatch 03/31/19 04/01/19 04/01/19 12:38 05:48 12:06 WBC RBC Hgb Hct MCH MCHC RDW Lymph % (Auto) Pierce % (Auto) Eos % (Auto) Lymph # Pierce # Eos # Seg Neutrophils % Seg Neuts % (Manual) Lymphocytes % (Manual) Eosinophils % (Manual) Seg Neutrophils # Lymphocytes # (Manual) Eosinophils # (Manual) PT INR D-Dimer POC ABG pH POC ABG pCO2 POC ABG pO2 ABG pO2 ABG HCO3 ABG Base Excess ABG Hemoglobin Oxyhemoglobin Sodium Potassium Chloride Carbon Dioxide BUN Creatinine Glucose POC Glucose 108 H 114 H 111 H Calcium Phosphorus Magnesium ALT Alkaline Phosphatase Total Creatine Kinase CK-MB (CK-2) Rel Index Troponin T Albumin LDL Cholesterol Direct PTH Intact Salicylates Acetaminophen Crossmatch 04/01/19 04/02/19 04/04/19 18:24 00:36 23:55 WBC RBC Hgb Hct MCH MCHC RDW Lymph % (Auto) Pierce % (Auto) Eos % (Auto) Lymph # Pierce # Eos # Seg Neutrophils % Seg Neuts % (Manual) Lymphocytes % (Manual) Eosinophils % (Manual) Seg Neutrophils # Lymphocytes # (Manual) Eosinophils # (Manual) PT INR D-Dimer POC ABG pH POC ABG pCO2 POC ABG pO2 ABG pO2 ABG HCO3 ABG Base Excess ABG Hemoglobin Oxyhemoglobin Sodium Potassium Chloride Carbon Dioxide BUN Creatinine Glucose POC Glucose 113 H 117 H 109 H Calcium Phosphorus Magnesium ALT Alkaline Phosphatase Total Creatine Kinase CK-MB (CK-2) Rel Index Troponin T Albumin LDL Cholesterol Direct PTH Intact Salicylates Acetaminophen Crossmatch 04/06/19 04/06/19 04/06/19 00:11 06:02 23:30 WBC RBC Hgb Hct MCH MCHC RDW Lymph % (Auto) Pierce % (Auto) Eos % (Auto) Lymph # Pierce # Eos # Seg Neutrophils % Seg Neuts % (Manual) Lymphocytes % (Manual) Eosinophils % (Manual) Seg Neutrophils # Lymphocytes # (Manual) Eosinophils # (Manual) PT INR D-Dimer POC ABG pH POC ABG pCO2 POC ABG pO2 ABG pO2 ABG HCO3 ABG Base Excess ABG Hemoglobin Oxyhemoglobin Sodium Potassium Chloride Carbon Dioxide BUN Creatinine Glucose POC Glucose 116 H 112 H 112 H Calcium Phosphorus Magnesium ALT Alkaline Phosphatase Total Creatine Kinase CK-MB (CK-2) Rel Index Troponin T Albumin LDL Cholesterol Direct PTH Intact Salicylates Acetaminophen Crossmatch 04/08/19 04/08/19 04/08/19 02:23 06:19 13:01 WBC RBC Hgb Hct MCH MCHC RDW Lymph % (Auto) Pierce % (Auto) Eos % (Auto) Lymph # Pierce # Eos # Seg Neutrophils % Seg Neuts % (Manual) Lymphocytes % (Manual) Eosinophils % (Manual) Seg Neutrophils # Lymphocytes # (Manual) Eosinophils # (Manual) PT INR D-Dimer POC ABG pH POC ABG pCO2 POC ABG pO2 ABG pO2 ABG HCO3 ABG Base Excess ABG Hemoglobin Oxyhemoglobin Sodium Potassium Chloride Carbon Dioxide BUN Creatinine Glucose POC Glucose 144 H 126 H 118 H Calcium Phosphorus Magnesium ALT Alkaline Phosphatase Total Creatine Kinase CK-MB (CK-2) Rel Index Troponin T Albumin LDL Cholesterol Direct PTH Intact Salicylates Acetaminophen Crossmatch 04/08/19 04/09/19 04/10/19 23:28 05:52 06:34 WBC RBC Hgb Hct MCH MCHC RDW Lymph % (Auto) Pierce % (Auto) Eos % (Auto) Lymph # Pierce # Eos # Seg Neutrophils % Seg Neuts % (Manual) Lymphocytes % (Manual) Eosinophils % (Manual) Seg Neutrophils # Lymphocytes # (Manual) Eosinophils # (Manual) PT INR D-Dimer POC ABG pH POC ABG pCO2 POC ABG pO2 ABG pO2 ABG HCO3 ABG Base Excess ABG Hemoglobin Oxyhemoglobin Sodium Potassium Chloride Carbon Dioxide BUN Creatinine Glucose POC Glucose 119 H 116 H 114 H Calcium Phosphorus Magnesium ALT Alkaline Phosphatase Total Creatine Kinase CK-MB (CK-2) Rel Index Troponin T Albumin LDL Cholesterol Direct PTH Intact Salicylates Acetaminophen Crossmatch 04/10/19 04/10/19 04/11/19 12:34 18:59 00:36 WBC RBC Hgb Hct MCH MCHC RDW Lymph % (Auto) Pierce % (Auto) Eos % (Auto) Lymph # Pierce # Eos # Seg Neutrophils % Seg Neuts % (Manual) Lymphocytes % (Manual) Eosinophils % (Manual) Seg Neutrophils # Lymphocytes # (Manual) Eosinophils # (Manual) PT INR D-Dimer POC ABG pH POC ABG pCO2 POC ABG pO2 ABG pO2 ABG HCO3 ABG Base Excess ABG Hemoglobin Oxyhemoglobin Sodium Potassium Chloride Carbon Dioxide BUN Creatinine Glucose POC Glucose 112 H 109 H 124 H Calcium Phosphorus Magnesium ALT Alkaline Phosphatase Total Creatine Kinase CK-MB (CK-2) Rel Index Troponin T Albumin LDL Cholesterol Direct PTH Intact Salicylates Acetaminophen Crossmatch 04/11/19 04/11/19 04/12/19 08:01 17:25 02:18 WBC RBC Hgb Hct MCH MCHC RDW Lymph % (Auto) Pierce % (Auto) Eos % (Auto) Lymph # Pierce # Eos # Seg Neutrophils % Seg Neuts % (Manual) Lymphocytes % (Manual) Eosinophils % (Manual) Seg Neutrophils # Lymphocytes # (Manual) Eosinophils # (Manual) PT INR D-Dimer POC ABG pH POC ABG pCO2 POC ABG pO2 ABG pO2 ABG HCO3 ABG Base Excess ABG Hemoglobin Oxyhemoglobin Sodium Potassium Chloride Carbon Dioxide BUN Creatinine Glucose POC Glucose 118 H 106 H 125 H Calcium Phosphorus Magnesium ALT Alkaline Phosphatase Total Creatine Kinase CK-MB (CK-2) Rel Index Troponin T Albumin LDL Cholesterol Direct PTH Intact Salicylates Acetaminophen Crossmatch 04/12/19 04/12/19 04/12/19 06:24 12:22 17:13 WBC RBC Hgb Hct MCH MCHC RDW Lymph % (Auto) Pierce % (Auto) Eos % (Auto) Lymph # Pierce # Eos # Seg Neutrophils % Seg Neuts % (Manual) Lymphocytes % (Manual) Eosinophils % (Manual) Seg Neutrophils # Lymphocytes # (Manual) Eosinophils # (Manual) PT INR D-Dimer POC ABG pH POC ABG pCO2 POC ABG pO2 ABG pO2 ABG HCO3 ABG Base Excess ABG Hemoglobin Oxyhemoglobin Sodium Potassium Chloride Carbon Dioxide BUN Creatinine Glucose POC Glucose 128 H 114 H 110 H Calcium Phosphorus Magnesium ALT Alkaline Phosphatase Total Creatine Kinase CK-MB (CK-2) Rel Index Troponin T Albumin LDL Cholesterol Direct PTH Intact Salicylates Acetaminophen Crossmatch 04/13/19 04/13/19 04/13/19 06:59 07:31 07:31 WBC RBC 3.34 L Hgb 8.9 L Hct 28.6 L MCH 27 L MCHC 31 L RDW 19.6 H Lymph % (Auto) Pierce % (Auto) Eos % (Auto) Lymph # Pierce # Eos # Seg Neutrophils % Seg Neuts % (Manual) Lymphocytes % (Manual) Eosinophils % (Manual) Seg Neutrophils # Lymphocytes # (Manual) Eosinophils # (Manual) PT INR D-Dimer POC ABG pH POC ABG pCO2 POC ABG pO2 ABG pO2 ABG HCO3 ABG Base Excess ABG Hemoglobin Oxyhemoglobin Sodium Potassium Chloride 96.4 L Carbon Dioxide 33 H BUN 66 H Creatinine 4.5 H Glucose 103 H POC Glucose 107 H Calcium Phosphorus Magnesium ALT Alkaline Phosphatase Total Creatine Kinase CK-MB (CK-2) Rel Index Troponin T Albumin LDL Cholesterol Direct PTH Intact Salicylates Acetaminophen Crossmatch 04/13/19 04/14/19 04/14/19 23:43 05:50 13:07 WBC RBC Hgb Hct MCH MCHC RDW Lymph % (Auto) Pierce % (Auto) Eos % (Auto) Lymph # Pierce # Eos # Seg Neutrophils % Seg Neuts % (Manual) Lymphocytes % (Manual) Eosinophils % (Manual) Seg Neutrophils # Lymphocytes # (Manual) Eosinophils # (Manual) PT INR D-Dimer POC ABG pH POC ABG pCO2 POC ABG pO2 ABG pO2 ABG HCO3 ABG Base Excess ABG Hemoglobin Oxyhemoglobin Sodium Potassium Chloride Carbon Dioxide BUN Creatinine Glucose POC Glucose 119 H 112 H 112 H Calcium Phosphorus Magnesium ALT Alkaline Phosphatase Total Creatine Kinase CK-MB (CK-2) Rel Index Troponin T Albumin LDL Cholesterol Direct PTH Intact Salicylates Acetaminophen Crossmatch 04/14/19 04/15/19 04/15/19 18:35 01:18 05:17 WBC RBC Hgb Hct MCH MCHC RDW Lymph % (Auto) Pierce % (Auto) Eos % (Auto) Lymph # Pierce # Eos # Seg Neutrophils % Seg Neuts % (Manual) Lymphocytes % (Manual) Eosinophils % (Manual) Seg Neutrophils # Lymphocytes # (Manual) Eosinophils # (Manual) PT INR D-Dimer POC ABG pH POC ABG pCO2 POC ABG pO2 ABG pO2 ABG HCO3 ABG Base Excess ABG Hemoglobin Oxyhemoglobin Sodium Potassium Chloride Carbon Dioxide BUN Creatinine Glucose POC Glucose 114 H 114 H 114 H Calcium Phosphorus Magnesium ALT Alkaline Phosphatase Total Creatine Kinase CK-MB (CK-2) Rel Index Troponin T Albumin LDL Cholesterol Direct PTH Intact Salicylates Acetaminophen Crossmatch 04/15/19 04/15/1904/16/19 11:50 23:39 05:41 WBC RBC Hgb Hct MCH MCHC RDW Lymph % (Auto) Pierce % (Auto) Eos % (Auto) Lymph # Pierce # Eos # Seg Neutrophils % Seg Neuts % (Manual) Lymphocytes % (Manual) Eosinophils % (Manual) Seg Neutrophils # Lymphocytes # (Manual) Eosinophils # (Manual) PT INR D-Dimer POC ABG pH POC ABG pCO2 POC ABG pO2 ABG pO2 ABG HCO3 ABG Base Excess ABG Hemoglobin Oxyhemoglobin Sodium Potassium Chloride Carbon Dioxide BUN Creatinine Glucose POC Glucose 109 H 115 H 125 H Calcium Phosphorus Magnesium ALT Alkaline Phosphatase Total Creatine Kinase CK-MB (CK-2) Rel Index Troponin T Albumin LDL Cholesterol Direct PTH Intact Salicylates Acetaminophen Crossmatch 04/16/19 04/17/19 04/17/19 12:53 01:00 12:38 WBC RBC Hgb Hct MCH MCHC RDW Lymph % (Auto) Pierce % (Auto) Eos % (Auto) Lymph # Pierce # Eos # Seg Neutrophils % Seg Neuts % (Manual) Lymphocytes % (Manual) Eosinophils % (Manual) Seg Neutrophils # Lymphocytes # (Manual) Eosinophils # (Manual) PT INR D-Dimer POC ABG pH POC ABG pCO2 POC ABG pO2 ABG pO2 ABG HCO3 ABG Base Excess ABG Hemoglobin Oxyhemoglobin Sodium Potassium Chloride Carbon Dioxide BUN Creatinine Glucose POC Glucose 121 H 127 H 159 H Calcium Phosphorus Magnesium ALT Alkaline Phosphatase Total Creatine Kinase CK-MB (CK-2) Rel Index Troponin T Albumin LDL Cholesterol Direct PTH Intact Salicylates Acetaminophen Crossmatch 04/17/19 04/17/19 04/18/19 18:27 23:36 07:19 WBC RBC 3.49 L Hgb 9.0 L Hct 29.9 L MCH 26 L MCHC 30 L RDW 20.0 H Lymph % (Auto) Pierce % (Auto) Eos % (Auto) Lymph # Pierce # Eos # Seg Neutrophils % Seg Neuts % (Manual) Lymphocytes % (Manual) Eosinophils % (Manual) Seg Neutrophils # Lymphocytes # (Manual) Eosinophils # (Manual) PT INR D-Dimer POC ABG pH POC ABG pCO2 POC ABG pO2 ABG pO2 ABG HCO3 ABG Base Excess ABG Hemoglobin Oxyhemoglobin Sodium Potassium Chloride Carbon Dioxide BUN Creatinine Glucose POC Glucose 109 H 134 H Calcium Phosphorus Magnesium ALT Alkaline Phosphatase Total Creatine Kinase CK-MB (CK-2) Rel Index Troponin T Albumin LDL Cholesterol Direct PTH Intact Salicylates Acetaminophen Crossmatch 04/18/19 04/18/19 04/18/19 07:19 12:16 17:09 WBC RBC Hgb Hct MCH MCHC RDW Lymph % (Auto) Pierce % (Auto) Eos % (Auto) Lymph # Pierce # Eos # Seg Neutrophils % Seg Neuts % (Manual) Lymphocytes % (Manual) Eosinophils % (Manual) Seg Neutrophils # Lymphocytes # (Manual) Eosinophils # (Manual) PT INR D-Dimer POC ABG pH POC ABG pCO2 POC ABG pO2 ABG pO2 ABG HCO3 ABG Base Excess ABG Hemoglobin Oxyhemoglobin Sodium Potassium Chloride Carbon Dioxide BUN 41 H Creatinine 2.9 H Glucose 122 H POC Glucose 125 H 131 H Calcium Phosphorus Magnesium ALT Alkaline Phosphatase Total Creatine Kinase CK-MB (CK-2) Rel Index Troponin T Albumin LDL Cholesterol Direct PTH Intact Salicylates Acetaminophen Crossmatch 04/18/19 04/19/19 04/19/19 23:57 05:55 11:35 WBC RBC Hgb Hct MCH MCHC RDW Lymph % (Auto) Pierce % (Auto) Eos % (Auto) Lymph # Pierce # Eos # Seg Neutrophils % Seg Neuts % (Manual) Lymphocytes % (Manual) Eosinophils % (Manual) Seg Neutrophils # Lymphocytes # (Manual) Eosinophils # (Manual) PT INR D-Dimer POC ABG pH POC ABG pCO2 POC ABG pO2 ABG pO2 ABG HCO3 ABG Base Excess ABG Hemoglobin Oxyhemoglobin Sodium Potassium Chloride Carbon Dioxide BUN Creatinine Glucose POC Glucose 159 H 144 H 177 H Calcium Phosphorus Magnesium ALT Alkaline Phosphatase Total Creatine Kinase CK-MB (CK-2) Rel Index Troponin T Albumin LDL Cholesterol Direct PTH Intact Salicylates Acetaminophen Crossmatch 04/19/19 04/20/19 04/20/19 16:36 02:05 06:28 WBC RBC Hgb Hct MCH MCHC RDW Lymph % (Auto) Pierce % (Auto) Eos % (Auto) Lymph # Pierce # Eos # Seg Neutrophils % Seg Neuts % (Manual) Lymphocytes % (Manual) Eosinophils % (Manual) Seg Neutrophils # Lymphocytes # (Manual) Eosinophils # (Manual) PT INR D-Dimer POC ABG pH POC ABG pCO2 POC ABG pO2 ABG pO2 ABG HCO3 ABG Base Excess ABG Hemoglobin Oxyhemoglobin Sodium Potassium Chloride Carbon Dioxide BUN Creatinine Glucose POC Glucose 134 H 142 H 132 H Calcium Phosphorus Magnesium ALT Alkaline Phosphatase Total Creatine Kinase CK-MB (CK-2) Rel Index Troponin T Albumin LDL Cholesterol Direct PTH Intact Salicylates Acetaminophen Crossmatch 04/20/19 04/20/19 04/21/19 12:37 23:34 05:59 WBC RBC Hgb Hct MCH MCHC RDW Lymph % (Auto) Pierce % (Auto) Eos % (Auto) Lymph # Pierce # Eos # Seg Neutrophils % Seg Neuts % (Manual) Lymphocytes % (Manual) Eosinophils % (Manual) Seg Neutrophils # Lymphocytes # (Manual) Eosinophils # (Manual) PT INR D-Dimer POC ABG pH POC ABG pCO2 POC ABG pO2 ABG pO2 ABG HCO3 ABG Base Excess ABG Hemoglobin Oxyhemoglobin Sodium Potassium Chloride Carbon Dioxide BUN Creatinine Glucose POC Glucose 163 H 166 H 140 H Calcium Phosphorus Magnesium ALT Alkaline Phosphatase Total Creatine Kinase CK-MB (CK-2) Rel Index Troponin T Albumin LDL Cholesterol Direct PTH Intact Salicylates Acetaminophen Crossmatch 04/21/19 04/21/19 04/21/19 12:07 17:22 23:43 WBC RBC Hgb Hct MCH MCHC RDW Lymph % (Auto) Pierce % (Auto) Eos % (Auto) Lymph # Pierce # Eos # Seg Neutrophils % Seg Neuts % (Manual) Lymphocytes % (Manual) Eosinophils % (Manual) Seg Neutrophils # Lymphocytes # (Manual) Eosinophils # (Manual) PT INR D-Dimer POC ABG pH POC ABG pCO2 POC ABG pO2 ABG pO2 ABG HCO3 ABG Base Excess ABG Hemoglobin Oxyhemoglobin Sodium Potassium Chloride Carbon Dioxide BUN Creatinine Glucose POC Glucose 135 H 141 H 138 H Calcium Phosphorus Magnesium ALT Alkaline Phosphatase Total Creatine Kinase CK-MB (CK-2) Rel Index Troponin T Albumin LDL Cholesterol Direct PTH Intact Salicylates Acetaminophen Crossmatch 04/22/19 05:12 WBC RBC Hgb Hct MCH MCHC RDW Lymph % (Auto) Pierce % (Auto) Eos % (Auto) Lymph # Pierce # Eos # Seg Neutrophils % Seg Neuts % (Manual) Lymphocytes % (Manual) Eosinophils % (Manual) Seg Neutrophils # Lymphocytes # (Manual) Eosinophils # (Manual) PT INR D-Dimer POC ABG pH POC ABG pCO2 POC ABG pO2 ABG pO2 ABG HCO3 ABG Base Excess ABG Hemoglobin Oxyhemoglobin Sodium Potassium Chloride Carbon Dioxide BUN Creatinine Glucose POC Glucose 141 H Calcium Phosphorus Magnesium ALT Alkaline Phosphatase Total Creatine Kinase CK-MB (CK-2) Rel Index Troponin T Albumin LDL Cholesterol Direct PTH Intact Salicylates Acetaminophen Crossmatch Chest x-ray: report reviewed, image reviewed
[2019-04-22] MEDS: EPOETIN ALFA 20,000 UNIT/1 ML INJ IV PRN (14:55)
--- NOTE | 2019-04-22 15:23 | Progress Note ---
Assessment and Plan - Patient Problems (1) ESRD (end stage renal disease) on dialysis Current Visit: Yes Status: Chronic Plan to address problem: End stage renal disease : - access: Left arm AVG Continue hemodialysis Saturday (2) Diabetes mellitus, insulin dependent (IDDM), uncontrolled Current Visit: No Status: Acute Plan to address problem: DM type II uncontrolled Monitor Fingersticks (3) Anemia in chronic kidney disease, on chronic dialysis Current Visit: Yes Status: Acute Plan to address problem: Anemia of chronic kidney disease hemoglobin 9.0g/dl We'll give Epogen Monitor CBC (4) Hypertension Current Visit: Yes Status: Acute Qualifiers: Hypertension type: essential hypertension Qualified Code(s): I10 - Essential (primary) hypertension Plan to address problem: Hypertension controlled currently on Prn antihypertensives. Monitor blood pressure (5) Acute hypoxemic respiratory failure Current Visit: Yes Status: Acute Plan to address problem: Patient has tracheostomy with Tpiece in place. Chest x-ray reviewed with patchy opacities upper lung lynn Cultures obtained with Acinetobacter completed treatment with antibiotics. Ultrafiltration limited by hypotension repeat CXR with improvement in lung aeration. Subjective Principal diagnosis: Respiratory failure, acute on chronic systolic HF, ESRD Interval history: 63 year old Gentleman with medical history significant for ESRD on hemodialysis at [facility] on Saturday, Saturday and Saturday. via a left arm AVG admitted with acute respiratory failure; and hypotension prolonged hospital course received antibiotics for acinetobacter infection and s/p prolonged need for ventilation requiring Tracheostomy with T piece attached. Patient seen today i attest i saw the patient on dialysis at 2:15pm . remains on a T piece apparatus BP: 84/64 Objective - Vital Signs Vital signs: Vital Signs - 12hr 04/22/19 04/22/19 04/22/19 03:26 07:31 07:59 Temperature 98.3 F 98.2 F Pulse Rate 93 H 89 Pulse Rate [ 80 Posterior Bilateral Throughout] Respiratory 20 16 Rate Respiratory 18 Rate [Posterior Bilateral Throughout] Blood Pressure 117/63 114/59 O2 Sat by Pulse 100 100 98 Oximetry O2 Sat by Pulse 98 Oximetry [ Assessment] 04/22/19 04/22/19 04/22/19 11:45 12:15 12:30 Temperature 98.1 F Pulse Rate 80 85 83 Pulse Rate [ Posterior Bilateral Throughout] Respiratory 16 Rate Respiratory Rate [Posterior Bilateral Throughout] Blood Pressure 112/80 108/53 105/61 O2 Sat by Pulse Oximetry O2 Sat by Pulse Oximetry [ Assessment] 04/22/19 04/22/19 04/22/19 12:45 13:00 13:15 Temperature Pulse Rate 86 91 H 92 H Pulse Rate [ Posterior Bilateral Throughout] Respiratory Rate Respiratory Rate [Posterior Bilateral Throughout] Blood Pressure 92/55 100/58 89/58 O2 Sat by Pulse Oximetry O2 Sat by Pulse Oximetry [ Assessment] 04/22/19 04/22/19 04/22/19 13:30 13:45 14:00 Temperature Pulse Rate 96 H 91 H 89 Pulse Rate [ Posterior Bilateral Throughout] Respiratory Rate Respiratory Rate [Posterior Bilateral Throughout] Blood Pressure 88/59 91/53 91/54 O2 Sat by Pulse Oximetry O2 Sat by Pulse Oximetry [ Assessment] 04/22/19 04/22/19 04/22/19 14:15 14:30 14:45 Temperature Pulse Rate 102 H 95 H 88 Pulse Rate [ Posterior Bilateral Throughout] Respiratory Rate Respiratory Rate [Posterior Bilateral Throughout] Blood Pressure 85/63 94/50 116/59 O2 Sat by Pulse Oximetry O2 Sat by Pulse Oximetry [ Assessment] 04/22/19 15:00 Temperature 98.1 F Pulse Rate 88 Pulse Rate [ Posterior Bilateral Throughout] Respiratory 16 Rate Respiratory Rate [Posterior Bilateral Throughout] Blood Pressure 116/59 O2 Sat by Pulse Oximetry O2 Sat by Pulse Oximetry [ Assessment] - General Appearance General appearance: well-developed, obese, chronically ill, frail EENT: ATNC, PERRL Neck: no JVD Respiratory: Present: Clear to Ascultation Cardiology: regular, S1S2 Gastrointestinal: normal, normoactive bowel sounds Integumentary: no rash Neurologic: other (awake , oriented to self. ) Psychiatric: depressed - Lab 04/18/19 07:19 04/18/19 07:19 Most recent lab results ABG pH 7.424 pH Units (7.350-7.450) 03/19/19 04:23 ABG pCO2 48.0 mm Hg 03/19/19 04:23 ABG pO2 78.3 mm Hg (80.0-90.0) L 03/19/19 04:23 ABG HCO3 30.7 mmol/L (20.0-26.0) H 03/19/19 04:23 ABG O2 Saturation 97.0 % (95.0-99.0) 03/19/19 04:23 Calcium 10.1 mg/dL (8.4-10.2) 04/18/19 07:19 Phosphorus 4.30 mg/dL (2.5-4.5) D 03/31/19 10:26 Magnesium 2.70 mg/dL (1.7-2.3) H 03/30/19 10:13 - Imaging Chest x-ray: image reviewed Medications & Allergies - Medications Allergies/Adverse Reactions: Allergies haloperidol [From Haldol] Adverse Reaction (Verified 03/13/18 12:10) Unknown haloperidol lactate [From Haldol] Adverse Reaction (Verified 03/13/18 12:10) Unknown Home Medications: Home Medications Medication Instructions Recorded Confirmed Last Taken Type risperiDONE [RisperDAL] 1 mg PO QAM 03/13/18 02/21/19 Unknown History Sertraline [Zoloft] 100 mg PO QDAY 08/26/18 02/21/19 Unknown History Polyethylene Glycol 3350 [Miralax 17 gm PO QDAY #30 packet 11/05/18 02/21/19 Unknown Rx 3350] Aspirin EC [Halfprin EC] 81 mg PO DAILY #30 11/19/18 02/21/19 Unknown Rx Docusate Sodium [Colace CAP] 100 mg PO BID #60 11/19/18 02/21/19 Unknown Rx Folic Acid [Folvite] 1 mg PO DAILY #30 tab 11/19/18 02/21/19 Unknown Rx Famotidine [Pepcid] 20 mg PO DAILY tablet 12/08/18 02/21/19 Unknown Rx Gabapentin [Neurontin] 100 mg PO QHS capsule 12/08/18 02/21/19 Unknown Rx Metoprolol [Lopressor TAB] 50 mg PO BID 30 Days tablet 12/08/18 02/21/19 Unknown Rx Sevelamer Carbonate [Renvela] 800 mg PO TIDWM tablet 12/08/18 02/21/19 Unknown Rx hydrALAZINE [Apresoline TAB] 100 mg PO Q8HR #120 tablet 12/08/18 02/21/19 Unknown Rx Acetaminophen [Acetaminophen TAB] 650 mg PO Q12H PRN 12/15/18 02/21/19 Unknown History Glucagon,Human Recombinant 1 mg IJ Q15MIN PRN 12/15/18 02/21/19 Unknown History [Glucagon Emergency Kit] Insulin Aspart [NovoLOG 100 See Protocol SQ QWEEK 12/15/18 02/21/19 Unknown History UNITS/ML VIAL] Active Medications: Generic Name Dose Route Start Last Admin Trade Name Freq PRN Reason Stop Dose Admin Albuterol/Ipratropium 1 ampul 02/24/19 20:00 04/22/19 07:58 Duoneb *Not For Prn Use* IH 1 ampul TIDRT SANCHEZ Administration Lipase/Protease/Amylase 1 each 04/10/19 15:[address] 10,500 Unit FEEDTUBE PRN PRN For Clogged Feeding Tube Epoetin Solitario 20,000 unit 03/24/19 11:17 04/22/19 14:55 Procrit IV 20,000 unit UMA PRN Administration hemodialysis Famotidine 20 mg 02/23/19 10:00 04/22/19 10:53 Pepcid PO 20 mg DAILY SANCHEZ Administration Hydrophilic Ointment 1 applic 02/21/19 18:24 03/05/19 08:16 Vaseline Lip Therapy TP 1 applic Q2HR PRN Administration Dry Lips Sodium Chloride 100 mls @ 999 mls/hr 02/26/19 09:00 Nacl 0.9% IV UMA PRN Hypotension Insulin Human Regular 0 units 02/26/19 12:00 04/22/19 13:12 Humulin R SUB-Q Not Given Q6HR [facility] Protocol Metoprolol Tartrate 2.5 mg 02/28/19 12:06 03/15/19 05:15 Lopressor IV 2.5 mg Q4HR PRN Administration Tachycardia Multi-Ingred Cream/Lotion/Oil/Oint 1 applic 02/21/19 18:24 04/16/19 14:31 Artificial Tears Ophth Oint OU 1 applic Q4HR PRN Administration Dry Eye(s) Risperidone 1 mg 02/25/19 13:00 04/22/19 10:53 Risperdal PO 1 mg DAILY SANCHEZ Administration Sertraline HCl 100 mg 02/25/19 13:00 04/22/19 10:53 Zoloft PO 100 mg DAILY SANCHEZ Administration Simple Syrup 15 ml 04/10/19 15:16 Simple Syrup FEEDTUBE PRN PRN Hypoglycemia Simple Syrup 30 ml 04/10/19 15:16 Simple Syrup FEEDTUBE PRN PRN Hypoglycemia Sodium Bicarbonate 325 mg 04/10/19 15:16 Sodium Bicarbonate FEEDTUBE PRN PRN For Clogged Feeding Tube Sodium Hypochlorite 1 applic 04/01/19 13:00 04/22/19 10:53 Dakin's Half Strength TP 1 applicatio BID SANCHEZ Administration
[2019-04-23] MEDS: INSULIN REGULAR, HUMAN 100 UNITS/1 ML SUB-Q SCH ×4 (00:09→19:00)
[2019-04-23] MEDS: IPRATROPIUM/ALBUTEROL SULFATE 3 ML AMPUL.NEB IH SCH ×3 (07:55→21:38)
--- NOTE | 2019-04-23 09:10 | Progress Note ---
Assessment and Plan - Patient Problems (1) ESRD (end stage renal disease) on dialysis Current Visit: Yes Status: Chronic Plan to address problem: End stage renal disease : - access: Left arm AVG Continue hemodialysis Saturday (2) Diabetes mellitus, insulin dependent (IDDM), uncontrolled Current Visit: No Status: Acute Plan to address problem: DM type II uncontrolled Monitor Fingersticks (3) Anemia in chronic kidney disease, on chronic dialysis Current Visit: Yes Status: Acute Plan to address problem: Anemia of chronic kidney disease hemoglobin 9.0g/dl We'll give Epogen Monitor CBC (4) Hypertension Current Visit: Yes Status: Acute Qualifiers: Hypertension type: essential hypertension Qualified Code(s): I10 - Essential (primary) hypertension Plan to address problem: Hypertension controlled currently on Prn antihypertensives. Monitor blood pressure (5) Acute hypoxemic respiratory failure Current Visit: Yes Status: Acute Plan to address problem: Patient has tracheostomy with Tpiece in place. Chest x-ray reviewed with patchy opacities upper lung lynn Cultures obtained with Acinetobacter completed treatment with antibiotics. Ultrafiltration limited by hypotension repeat CXR with improvement in lung aeration. Subjective Principal diagnosis: Respiratory failure, acute on chronic systolic HF, ESRD Interval history: 63 year old Gentleman with medical history significant for ESRD on hemodialysis at [facility] on Saturday, Saturday and Saturday. via a left arm AVG admitted with acute respiratory failure; and hypotension prolonged hospital course received antibiotics for acinetobacter infection and s/p prolonged need for ventilation requiring Tracheostomy with T piece attached. Patient seen today remains on a T piece apparatus has audible secretions respiratory therapy to suction patient. Objective - Vital Signs Vital signs: Vital Signs - 12hr 04/22/19 04/22/19 04/23/19 21:23 23:39 03:50 Temperature 98.3 F Pulse Rate 99 H Pulse Rate [ Anterior Bilateral Throughout] Pulse Rate [ Posterior Bilateral Throughout] Respiratory 18 Rate Respiratory Rate [Anterior Bilateral Throughout] Respiratory Rate [Posterior Bilateral Throughout] Blood Pressure 104/46 O2 Sat by Pulse 98 Oximetry O2 Sat by Pulse 98 98 Oximetry [ Assessment] 04/23/19 04/23/19 04/23/19 04:12 07:55 08:00 Temperature 98.1 F Pulse Rate 95 H Pulse Rate [ 89 Anterior Bilateral Throughout] Pulse Rate [ 80 Posterior Bilateral Throughout] Respiratory 18 Rate Respiratory 18 Rate [Anterior Bilateral Throughout] Respiratory 18 Rate [Posterior Bilateral Throughout] Blood Pressure 120/37 O2 Sat by Pulse 100 Oximetry O2 Sat by Pulse 97 Oximetry [ Assessment] 04/23/19 04/23/19 08:03 08:06 Temperature 99.7 F H Pulse Rate 96 H Pulse Rate [ Anterior Bilateral Throughout] Pulse Rate [ Posterior Bilateral Throughout] Respiratory 18 Rate Respiratory Rate [Anterior Bilateral Throughout] Respiratory Rate [Posterior Bilateral Throughout] Blood Pressure 116/63 O2 Sat by Pulse 99 96 Oximetry O2 Sat by Pulse Oximetry [ Assessment] - General Appearance General appearance: chronically ill, frail EENT: ATNC, mucous membranes dry Neck: no JVD Respiratory: Present: Ronchi, Decreased Breath Sounds Cardiology: regular, S1S2 Gastrointestinal: normal, normoactive bowel sounds Integumentary: no rash Neurologic: other (awake oriented to self) Psychiatric: depressed - Lab 04/18/19 07:19 04/18/19 07:19 Most recent lab results ABG pH 7.424 pH Units (7.350-7.450) 03/19/19 04:23 ABG pCO2 48.0 mm Hg 03/19/19 04:23 ABG pO2 78.3 mm Hg (80.0-90.0) L 03/19/19 04:23 ABG HCO3 30.7 mmol/L (20.0-26.0) H 03/19/19 04:23 ABG O2 Saturation 97.0 % (95.0-99.0) 03/19/19 04:23 Calcium 10.1 mg/dL (8.4-10.2) 04/18/19 07:19 Phosphorus 4.30 mg/dL (2.5-4.5) D 03/31/19 10:26 Magnesium 2.70 mg/dL (1.7-2.3) H 03/30/19 10:13 - Imaging Chest x-ray: image reviewed (i reviewed CXR with improvement in lung aeration. ) Medications & Allergies - Medications Allergies/Adverse Reactions: Allergies haloperidol [From Haldol] Adverse Reaction (Verified 03/13/18 12:10) Unknown haloperidol lactate [From Haldol] Adverse Reaction (Verified 03/13/18 12:10) Unknown Home Medications: Home Medications Medication Instructions Recorded Confirmed Last Taken Type risperiDONE [RisperDAL] 1 mg PO QAM 03/13/18 02/21/19 Unknown History Sertraline [Zoloft] 100 mg PO QDAY 08/26/18 02/21/19 Unknown History Polyethylene Glycol 3350 [Miralax 17 gm PO QDAY #30 packet 11/05/18 02/21/19 Unknown Rx 3350] Aspirin EC [Halfprin EC] 81 mg PO DAILY #30 11/19/18 02/21/19 Unknown Rx Docusate Sodium [Colace CAP] 100 mg PO BID #60 11/19/18 02/21/19 Unknown Rx Folic Acid [Folvite] 1 mg PO DAILY #30 tab 11/19/18 02/21/19 Unknown Rx Famotidine [Pepcid] 20 mg PO DAILY tablet 12/08/18 02/21/19 Unknown Rx Gabapentin [Neurontin] 100 mg PO QHS capsule 12/08/18 02/21/19 Unknown Rx Metoprolol [Lopressor TAB] 50 mg PO BID 30 Days tablet 12/08/18 02/21/19 Unknown Rx Sevelamer Carbonate [Renvela] 800 mg PO TIDWM tablet 12/08/18 02/21/19 Unknown Rx hydrALAZINE [Apresoline TAB] 100 mg PO Q8HR #120 tablet 12/08/18 02/21/19 Unknown Rx Acetaminophen [Acetaminophen TAB] 650 mg PO Q12H PRN 12/15/18 02/21/19 Unknown History Glucagon,Human Recombinant 1 mg IJ Q15MIN PRN 12/15/18 02/21/19 Unknown History [Glucagon Emergency Kit] Insulin Aspart [NovoLOG 100 See Protocol SQ QWEEK 12/15/18 02/21/19 Unknown History UNITS/ML VIAL] Active Medications: Generic Name Dose Route Start Last Admin Trade Name Freq PRN Reason Stop Dose Admin Albuterol/Ipratropium 1 ampul 02/24/19 20:00 04/23/19 07:55 Duoneb *Not For Prn Use* IH 1 ampul TIDRT SANCHEZ Administration Lipase/Protease/Amylase 1 each 04/10/19 15:16 Pancrejean carlose 10,500 Unit FEEDTUBE PRN PRN For Clogged Feeding Tube Epoetin Solitario 20,000 unit 03/24/19 11:17 04/22/19 14:55 Procrit IV 20,000 unit UMA PRN Administration hemodialysis Famotidine 20 mg 02/23/19 10:00 04/22/19 10:53 Pepcid PO 20 mg DAILY SANCHEZ Administration Sodium Chloride 100 mls @ 999 mls/hr 02/26/19 09:00 Nacl 0.9% IV UMA PRN Hypotension Insulin Human Regular 0 units 02/26/19 12:00 04/23/19 06:10 Humulin R SUB-Q Not Given Q6HR [facility] Protocol Metoprolol Tartrate 2.5 mg 02/28/19 12:06 03/15/19 05:15 Lopressor IV 2.5 mg Q4HR PRN Administration Tachycardia Risperidone 1 mg 02/25/19 13:00 04/22/19 10:53 Risperdal PO 1 mg DAILY SANCHEZ Administration Sertraline HCl 100 mg 02/25/19 13:00 04/22/19 10:53 Zoloft PO 100 mg DAILY SANCHEZ Administration Simple Syrup 15 ml 04/10/19 15:16 Simple Syrup FEEDTUBE PRN PRN Hypoglycemia Simple Syrup 30 ml 04/10/19 15:16 Simple Syrup FEEDTUBE PRN PRN Hypoglycemia Sodium Bicarbonate 325 mg 04/10/19 15:16 Sodium Bicarbonate FEEDTUBE PRN PRN For Clogged Feeding Tube Sodium Hypochlorite 1 applic 04/01/19 13:00 04/22/19 22:22 Dakin's Half Strength TP 1 applicatio BID SANCHEZ Administration
[2019-04-23] MEDS: FAMOTIDINE 20 MG TAB PO SCH (10:23)
[2019-04-23] MEDS: risperiDONE 1 MG TAB PO SCH (10:23)
[2019-04-23] MEDS: SERTRALINE 100 MG TAB PO SCH (10:23)
--- NOTE | 2019-04-23 10:40 | Progress Note ---
Assessment and Plan Assessment and plan: Acute respiratory failure on mechanical ventilator >96 hrs Trach placed on 03/03/19 Pulm consult appreciated weaning trial Aspiration precautions Continue T-piece Finished therapy for Acinetobacter Acute pulmonary edema, fluid overload on CXR repeat xray intermittently Dialysis Necrotizing Unstagable sacral decubitus ulcer with ostemomyelitis Wound care, Dilated CMP Cardiomyiopathy EF 35-40% Continue diuresis PPM/ICD Acute encephalopathy, probably metabolic or toxic Continues on Mechanical ventilator. ESRD on hemodialysis nephrology following Vascular eval. 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 -Pt is s/p x1 DDVAP DVT prophylaxis Lovenox DNR poor prognosis Disposition: Awaiting on placement History Interval history: Patient is 63-year-old -[place] male patient from [facility] with multiple co-morbidities including blindness, CVA, CHF, PPM/ICD, loop recorder since 2012 that is MRI compatible, IDDM type 2, sepsis left foot ulcer, afib, ESRD with complications on HD TTS, hypertension, AOCD and GERD who presented to the ED with hypotensive after intubation in the emergency room. diagnosed with fluid overload, pleural effusion. Patient has had recurrent admission in the hospital for similar reason and was recently discharged from the hospital following treatment of Severe Sepsis due to Necrotizing Unstagable sacral decubitus ulcer with ostemomylitis, has received multiple courses of broad spectrum abx. Acute hypoxic respiratory failure, status post intubation and ventilatory support, now off vent, on T-piece Hospitalist Physical - Constitutional Vitals: Temp Pulse Resp BP Pulse Ox 99.7 F H 96 H 18 116/63 96 04/23/19 08:03 04/23/19 08:03 04/23/19 08:03 04/23/19 08:03 04/23/19 08:06 General appearance: Present: no acute distress, well-nourished, other (T peace) - EENT Eyes: Present: PERRL, EOM intact ENT: hearing intact, clear oral mucosa, dentition normal - Neck Neck: Present: supple, normal ROM - Respiratory Respiratory effort: normal Respiratory: bilateral: CTA - Cardiovascular Rhythm: regular Heart Sounds: Present: S1 & S2. Absent: gallop, rub - Extremities Extremities: no ischemia, No edema, Full ROM - Abdominal General gastrointestinal: soft, non-tender, non-distended, normal bowel sounds - Integumentary Integumentary: Present: clear, warm, dry - Neurologic Neurologic: CNII-XII intact, moves all extremities Results - Labs CBC & Chem 7: 04/18/19 07:19 04/18/19 07:19 Labs: Laboratory Last Values WBC 9.6 K/mm3 (4.5-11.0) 04/18/19 07:19 RBC 3.49 M/mm3 (3.65-5.03) L 04/18/19 07:19 Hgb 9.0 gm/dl (11.8-15.2) L 04/18/19 07:19 Hct 29.9 % (35.5-45.6) L 04/18/19 07:19 MCV 86 fl (84-94) 04/18/19 07:19 MCH 26 pg (28-32) L 04/18/19 07:19 MCHC 30 % (32-34) L 04/18/19 07:19 RDW 20.0 % (13.2-15.2) H 04/18/19 07:19 Plt Count 286 K/mm3 (140-440) 04/18/19 07:19 Lymph % (Auto) 13.3 % (13.4-35.0) L 03/31/19 10:26 Mchenry % (Auto) 6.5 % (0.0-7.3) 03/31/19 10:26 Eos % (Auto) 7.2 % (0.0-4.3) H 03/31/19 10:26 Baso % (Auto) 0.9 % (0.0-1.8) 03/31/19 10:26 Lymph # 1.1 K/mm3 (1.2-5.4) L 03/31/19 10:26 Mchenry # 0.5 K/mm3 (0.0-0.8) 03/31/19 10: Eos # 0.6 K/mm3 (0.0-0.4) H 03/31/19 10: Baso # 0.1 K/mm3 (0.0-0.1) 03/31/19 10:26 Add Manual Diff Complete 03/21/19 06:30 Total Counted 100 03/21/19 06:30 Seg Neutrophils % 72.1 % (40.0-70.0) H 03/31/19 10:26 Seg Neuts % (Manual) 81.0 % (40.0-70.0) H 03/21/19 06:30 Band Neutrophils % 0 % 03/21/19 06:30 Lymphocytes % (Manual) 8.0 % (13.4-35.0) L 03/21/19 06:30 Reactive Lymphs % (Man) 0 % 03/21/19 06:30 Monocytes % (Manual) 1.0 % (0.0-7.3) 03/21/19 06:30 Eosinophils % (Manual) 8.0 % (0.0-4.3) H 03/21/19 06:30 Basophils % (Manual) 1.0 % (0.0-1.8) 03/21/19 06:30 Metamyelocytes % 1.0 % 03/21/19 06:30 Myelocytes % 0 % 03/21/19 06:30 Promyelocytes % 0 % 03/21/19 06:30 Blast Cells % 0 % 03/21/19 06:30 Nucleated RBC % Not Reportable 03/21/19 06:30 Seg Neutrophils # 6.0 K/mm3 (1.8-7.7) 03/31/19 10:26 Seg Neutrophils # Man 6.7 K/mm3 (1.8-7.7) 03/21/19 06:30 Band Neutrophils # 0.0 K/mm3 03/21/19 06:30 Lymphocytes # (Manual) 0.7 K/mm3 (1.2-5.4) L 03/21/19 06:30 Abs React Lymphs (Man) 0.0 K/mm3 03/21/19 06:30 Monocytes # (Manual) 0.1 K/mm3 (0.0-0.8) 03/21/19 06:30 Eosinophils # (Manual) 0.7 K/mm3 (0.0-0.4) H 03/21/19 06:30 Basophils # (Manual) 0.1 K/mm3 (0.0-0.1) 03/21/19 06:30 Metamyelocytes # 0.1 K/mm3 03/21/19 06:30 Myelocytes # 0.0 K/mm3 03/21/19 06:30 Promyelocytes # 0.0 K/mm3 03/21/19 06:30 Blast Cells # 0.0 K/mm3 03/21/19 06:30 WBC Morphology Not Reportable 03/21/19 06:30 Hypersegmented Neuts Not Reportable 03/21/19 06:30 Hyposegmented Neuts Not Reportable 03/21/19 06:30 Hypogranular Neuts Not Reportable 03/21/19 06:30 Smudge Cells Not Reportable 03/21/19 06:30 Toxic Granulation Not Reportable 03/21/19 06:30 Toxic Vacuolation Not Reportable 03/21/19 06:30 Dohle Bodies Not Reportable 03/21/19 06:30 Pelger-Huet Anomaly Not Reportable 03/21/19 06:30 Tramaine Rods Not Reportable 03/21/19 06:30 Platelet Estimate Consistent w auto 03/21/19 06:30 Clumped Platelets Not Reportable 03/21/19 06:30 Plt Clumps, EDTA Not Reportable 03/21/19 06:30 Large Platelets Not Reportable 03/21/19 06:30 Giant Platelets Not Reportable 03/21/19 06:30 Platelet Satelliting Not Reportable 03/21/19 06:30 Plt Morphology Comment Not Reportable 03/21/19 06:30 RBC Morphology Not Reportable 03/21/19 06:30 Dimorphic RBCs Not Reportable 03/21/19 06:30 Polychromasia Not Reportable 03/21/19 06:30 Hypochromasia Few 03/21/19 06:30 Poikilocytosis Few 03/21/19 06:30 Anisocytosis Few 03/21/19 06:30 Microcytosis Not Reportable 03/21/19 06:30 Macrocytosis Not Reportable 03/21/19 06:30 Spherocytes Not Reportable 03/21/19 06:30 Pappenheimer Bodies Not Reportable 03/21/19 06:30 Sickle Cells Not Reportable 03/21/19 06:30 Target Cells 1+ 03/21/19 06:30 Tear Drop Cells Not Reportable 03/21/19 06:30 Ovalocytes Few 03/21/19 06:30 Helmet Cells Not Reportable 03/21/19 06:30 [place] Bodies Not Reportable 03/21/19 06:30 [place] Rings Not Reportable 03/21/19 06:30 Hebert Cells Not Reportable 03/21/19 06:30 Bite Cells Not Reportable 03/21/19 06:30 Crenated Cell Not Reportable 03/21/19 06:30 Elliptocytes Not Reportable 03/21/19 06:30 Acanthocytes (Spur) Not Reportable 03/21/19 06:30 Rouleaux Not Reportable 03/21/19 06:30 Hemoglobin C Crystals Not Reportable 03/21/19 06:30 Schistocytes Not Reportable 03/21/19 06:30 Malaria parasites Not Reportable 03/21/19 06:30 Jose Juan Bodies Not Reportable 03/21/19 06:30 Hem Pathologist Commnt No 03/21/19 06:30 PT 16.3 Sec. (12.2-14.9) H 03/01/19 09:39 INR 1.35 (0.87-1.13) H 03/01/19 09:39 APTT 33.7 Sec. (24.2-36.6) 02/21/19 18:30 D-Dimer 2987.82 ng/mlDDU (0-234) H 02/22/19 05:54 POC ABG pH 7.510 (7.35-7.45) H 03/18/19 06:38 ABG pH 7.424 pH Units (7.350-7.450) 03/19/19 04:23 POC ABG pCO2 38.9 (35-45) 03/18/19 06:38 ABG pCO2 48.0 mm Hg 03/19/19 04:23 POC ABG pO2 164 (80-105) H 03/18/19 06:38 ABG pO2 78.3 mm Hg (80.0-90.0) L 03/19/19 04:23 POC ABG HCO3 31.0 (22-26 mml/L) 03/18/19 06:38 ABG HCO3 30.7 mmol/L (20.0-26.0) H 03/19/19 04:23 POC ABG Total CO2 32 (23-27mmol/L) 03/18/19 06:38 POC ABG O2 Sat 100 03/18/19 06:38 ABG O2 Saturation 97.0 % (95.0-99.0) 03/19/19 04:23 ABG O2 Content 7.9 (0.0-44) 03/19/19 04:23 POC ABG Base Excess 8 ((-2) - (+3)mmol/L) 03/18/19 06:38 ABG Base Excess 5.8 mmol/L (-2.0-3.0) H 03/19/19 04:23 ABG Hemoglobin 5.8 gm/dl (14.0-18.0) L 03/19/19 04:23 ABG Carboxyhemoglobin 2.0 % (0.0-5.0) 03/19/19 04:23 ABG Methemoglobin 0.4 % (0.0-1.5) 03/19/19 04:23 Oxyhemoglobin 94.6 % (95.0-99.0) L 03/19/19 04:23 FiO2 35 % 03/19/19 04:23 Sodium 145 mmol/L (137-145) 04/18/19 07:19 Potassium 3.6 mmol/L (3.6-5.0) 04/18/19 07:19 Chloride 99.1 mmol/L (98-107) 04/18/19 07:19 Carbon Dioxide 30 mmol/L (22-30) 04/18/19 07:19 Anion Gap 20 mmol/L 04/18/19 07:19 BUN 41 mg/dL (9-20) H 04/18/19 07:19 Creatinine 2.9 mg/dL (0.8-1.5) H 04/18/19 07:19 Estimated GFR 27 ml/min 04/18/19 07:19 BUN/Creatinine Ratio 14 % 04/18/19 07:19 Glucose 122 mg/dL (75-100) H 04/18/19 07:19 POC Glucose 154 (70-105) H 04/23/19 08:13 Lactic Acid 1.00 mmol/L (0.7-2.0) 02/21/19 20:58 Calcium 10.1 mg/dL (8.4-10.2) 04/18/19 07:19 Phosphorus 4.30 mg/dL (2.5-4.5) D 03/31/19 10:26 Magnesium 2.70 mg/dL (1.7-2.3) H 03/30/19 10:13 Total Bilirubin 0.20 mg/dL (0.1-1.2) 03/30/19 10:13 AST 16 units/L (5-40) 03/30/19 10:13 ALT 11 units/L (7-56) 03/30/19 10:13 Alkaline Phosphatase 185 units/L (35-129) H 03/30/19 10:13 Ammonia 28.0 umol/L (25-60) 02/21/19 20:04 Total Creatine Kinase 64 units/L (55-170) 02/22/19 03:42 CK-MB (CK-2) 3.7 ng/mL (0.0-4.0) 02/22/19 03:42 CK-MB (CK-2) Rel Index 5.7 (0-4) H 02/22/19 03:42 Troponin T 0.193 ng/mL (0.00-0.029) H* 02/22/19 03:42 Total Protein 6.9 g/dL (6.3-8.2) 03/30/19 10:13 Albumin 2.6 g/dL (3.9-5) L 03/30/19 10:13 Albumin/Globulin Ratio 0.6 % 03/30/19 10:13 Triglycerides 51 mg/dL (2-149) 02/21/19 18:30 Cholesterol 82 mg/dL (50-199) 02/21/19 18:30 LDL Cholesterol Direct 36 mg/dL (50-130) L 02/21/19 18:30 HDL Cholesterol 40 mg/dL (40-59) 02/21/19 18:30 Cholesterol/HDL Ratio 2.05 % 02/21/19 18:30 TSH 2.760 mlU/mL (0.270-4.200) 02/21/19 20:04 PTH Intact 267.6 pg/mL (15-65) H 03/02/19 05:15 Salicylates < 0.3 mg/dL (2.8-20.0) L 02/21/19 20:04 Acetaminophen < 5.0 ug/mL (10.0-30.0) L 02/21/19 20:04 Hepatitis A IgM Ab Non-reactive (NonReactive) 03/31/19 22:56 Hep Bs Antigen Non-reactive (Negative) 03/31/19 22:56 Hep B Core IgM Ab Non-reactive (NonReactive) 03/31/19 22:56 Hepatitis C Antibody Non-reactive (NonReactive) 03/31/19 22:56 Blood Type O POSITIVE 03/22/19 08:48 Antibody Screen Negative 03/22/19 08:48 Crossmatch See Detail 03/22/19 08:48 Active Medications - Current Medications Current Medications: Generic Name Dose Route Start Last Admin Trade Name Freq PRN Reason Stop Dose Admin Albuterol/Ipratropium 1 ampul 02/24/19 20:00 04/23/19 07:55 Duoneb *Not For Prn Use* IH 1 ampul TIDRT SANCHEZ Administration Lipase/Protease/Amylase 1 each 04/10/19 15:16 Pancreaze 10,500 Unit FEEDTUBE PRN PRN For Clogged Feeding Tube Epoetin Solitario 20,000 unit 03/24/19 11:17 04/22/19 14:55 Procrit IV 20,000 unit UMA PRN Administration hemodialysis Famotidine 20 mg 02/23/19 10:00 04/23/19 10:23 Pepcid PO 20 mg DAILY SANCHEZ Administration Sodium Chloride 100 mls @ 999 mls/hr 02/26/19 09:00 Nacl 0.9% IV UMA PRN Hypotension Insulin Human Regular 0 units 02/26/19 12:00 04/23/19 06:10 Humulin R SUB-Q Not Given Q6HR [facility] Protocol Metoprolol Tartrate 2.5 mg 02/28/19 12:06 03/15/19 05:15 Lopressor IV 2.5 mg Q4HR PRN Administration Tachycardia Risperidone 1 mg 02/25/19 13:00 04/23/19 10:23 Risperdal PO 1 mg DAILY SANCHEZ Administration Sertraline HCl 100 mg 02/25/19 13:00 04/23/19 10:23 Zoloft PO 100 mg DAILY SANCHEZ Administration Simple Syrup 15 ml 04/10/19 15:16 Simple Syrup FEEDTUBE PRN PRN Hypoglycemia Simple Syrup 30 ml 04/10/19 15:16 Simple Syrup FEEDTUBE PRN PRN Hypoglycemia Sodium Bicarbonate 325 mg 04/10/19 15:16 Sodium Bicarbonate FEEDTUBE PRN PRN For Clogged Feeding Tube Sodium Hypochlorite 1 applic 04/01/19 13:00 04/22/19 22:22 Dakin's Half Strength TP 1 applicatio BID SANCHEZ Administration Nutrition/Malnutrition Assess - Dietary Evaluation Nutrition/Malnutrition Findings: Nutrition Notes Start: 02/22/19 12:51 Freq: Status: Active Protocol: Document 04/17/19 09:45 KS (Rec: 04/17/19 11:00 KS [id number]) Co-Sign 04/17/19 09:45 LM Nutrition Notes Initial or Follow up Reassessment Current Diagnosis Diabetes,Hypertension Other Pertinent Diagnosis Sacral PU, ESRD on HD (T/Thurs /Sat), Schizophrenia,Blind in L eye,S/P trach Current Diet Nepro at 50 ml/hr w/Abhilash BID Labs/Tests POC Glu - 127 Pertinent Medications Reviewed Height 5 ft 10 in Weight 78.2 kg [place] Body Weight (kg) 75.45 BMI 24.7 Subjective/Other Information Observed Nepro infusing at 50 ml/hr. RN states Abhilash not being given to pt. RN informed of reason for Abhilash. Percent of energy/protein needs met: 92%/100% Burn Absent Trauma Absent Minimum of two criteria No #2 Nutrition Diagnosis Increased nutrient needs ( specify in comment below) Diagnosis Progress(for reassessment Continues documentation) #1 Nutrition Diagnosis Inadequate oral intake Diagnosis Progress(for reassessment Continues documentation) Is patient on ventilator? No Is Patient Ambulatory and/or Out of Bed No REE-([facility]-confined to bed) 1898.108 Kcal/Kg value to use for calculation 30 Approximate Energy Requirements Using 2346 kcal/Kg Calculation Used for Recommendations Kcal/kg Additional Notes Protein Needs: 90-112g (1.2-1. 5g/kg) Fluid Needs: 1-1.5 L/day Nutrition Intervention Change Diet Order: Continue TF Nutrition Support: Nepro with Carbsteady 1.8 at 50 ml/hr Flush 200 ml q4hr Kcal 2,160 Protein (gm) 97 Fluid (mL) 872 Add Supplement/Snack (indicate name/kcal Abhilash BID /protein ) Provides kCal: 190 Provides Protein (gm) 5 Goal #1 TF tolerance Goal #2 Continue to meet at least 75% of calorie and protein needs via TF Anticipated Discharge Needs: TF Follow-Up By: 04/24/19 Additional Comments Follow for TF tolerance, Pt receiving Abhilash
[2019-04-23] MEDS: SODIUM HYPOCHLORITE, DAKIN'S 1/2 STRENGTH (0.25%) 473 ML TOPICAL SOLN TP SCH ×2 (13:13→22:23)
--- NOTE | 2019-04-23 17:59 | Progress Note ---
Assessment and Plan Imp: 1. Acute encephalopathy, probably metabolic or toxic, resolved 2. A/C systolic CHF 3. Dilated CMP 4. Pulm HTN 5. ESRD 6. RUL atelectasis, probably mucous plugging -> resolved 7. KEON pneumonia, resolved Rec: 1. Chest PT, Duonebs 2. T-piece/PMV 3. Avoid sedatives 4. DVT and GI PPx 5. TFs per PEG 6. HD per renal 7. Agree w/ DNR as per family wishes although hospice is the most appropriate course for him Await placement No family present Subjective Date of service: 04/23/19 Principal diagnosis: Respiratory failure, acute on chronic systolic HF, ESRD Interval history: No events. Mentation near usual poor baseline. Does respond to basic questions but cannot give hx. On 28% per Tpiece. Objective Vital Signs - 12hr 04/23/19 04/23/19 04/23/19 07:55 08:00 08:03 Temperature 99.7 F H Pulse Rate 96 H Pulse Rate [ 89 Anterior Bilateral Throughout] Pulse Rate [ 80 Posterior Bilateral Throughout] Respiratory 18 Rate Respiratory 18 Rate [Anterior Bilateral Throughout] Respiratory 18 Rate [Posterior Bilateral Throughout] Blood Pressure 116/63 O2 Sat by Pulse 99 Oximetry O2 Sat by Pulse 97 Oximetry [ Assessment] 04/23/19 04/23/19 04/23/19 08:06 10:00 12:03 Temperature 99.4 F Pulse Rate 97 H 99 H Pulse Rate [ Anterior Bilateral Throughout] Pulse Rate [ Posterior Bilateral Throughout] Respiratory 18 18 Rate Respiratory Rate [Anterior Bilateral Throughout] Respiratory Rate [Posterior Bilateral Throughout] Blood Pressure 114/63 O2 Sat by Pulse 96 100 Oximetry O2 Sat by Pulse Oximetry [ Assessment] 04/23/19 04/23/19 13:48 16:22 Temperature 97.9 F Pulse Rate 101 H Pulse Rate [ 88 Anterior Bilateral Throughout] Pulse Rate [ 80 Posterior Bilateral Throughout] Respiratory 18 Rate Respiratory 18 Rate [Anterior Bilateral Throughout] Respiratory 18 Rate [Posterior Bilateral Throughout] Blood Pressure 138/63 O2 Sat by Pulse 100 Oximetry O2 Sat by Pulse Oximetry [ Assessment] Constitutional: no acute distress, alert Eyes: non-icteric ENT: oropharynx moist Neck: supple Effort: normal Ascultation: Bilateral: other (coarse BS bilaterally) Cardiovascular: regular rate and rhythm (no mrg) Gastrointestinal: normoactive bowel sounds, soft, non-tender, non-distended, other (ostomy in place, brown stool) Extremities: no cyanosis, no edema, pink and warm Neurologic: other (mild weakness LUE, o/w nonfocal) Psychiatric: other (unable to assess) CBC and BMP: 06/01/19 Unknown 06/01/19 Unknown ABG, PT/INR, D-dimer: ABG POC ABG pH 7.510 (7.35-7.45) H 03/18/19 06:38 ABG pH 7.424 pH Units (7.350-7.450) 03/19/19 04:23 POC ABG pCO2 38.9 (35-45) 03/18/19 06:38 ABG pCO2 48.0 mm Hg 03/19/19 04:23 POC ABG pO2 164 (80-105) H 03/18/19 06:38 ABG pO2 78.3 mm Hg (80.0-90.0) L 03/19/19 04:23 POC ABG HCO3 31.0 (22-26 mml/L) 03/18/19 06:38 POC ABG Total CO2 32 (23-27mmol/L) 03/18/19 06:38 POC ABG O2 Sat 100 03/18/19 06:38 ABG O2 Saturation 97.0 % (95.0-99.0) 03/19/19 04:23 PT/INR, D-dimer PT 16.3 Sec. (12.2-14.9) H 03/01/19 09:39 INR 1.35 (0.87-1.13) H 03/01/19 09:39 D-Dimer 2987.82 ng/mlDDU (0-234) H 02/22/19 05:54 Abnormal lab findings: Abnormal Labs 02/21/19 02/21/19 02/21/19 18:30 18:30 18:30 WBC RBC 3.26 L Hgb 8.8 L Hct 29.0 L MCH 27 L MCHC 30 L RDW 19.1 H Lymph % (Auto) 6.1 L [place] % (Auto) Eos % (Auto) Lymph # 0.4 L [place] # Eos # Seg Neutrophils % 86.2 H Seg Neuts % (Manual) Lymphocytes % (Manual) Eosinophils % (Manual) Seg Neutrophils # Lymphocytes # (Manual) Eosinophils # (Manual) PT INR D-Dimer POC ABG pH POC ABG pCO2 POC ABG pO2 ABG pO2 ABG HCO3 ABG Base Excess ABG Hemoglobin Oxyhemoglobin Sodium 133 L Potassium 3.3 L Chloride 93.1 L Carbon Dioxide 33 H BUN Creatinine Glucose 161 H POC Glucose Calcium Phosphorus Magnesium ALT Alkaline Phosphatase 136 H Total Creatine Kinase 37 L CK-MB (CK-2) Rel Index Troponin T 0.192 H* Albumin 2.4 L LDL Cholesterol Direct 36 L PTH Intact Salicylates Acetaminophen Crossmatch 02/21/19 02/21/19 02/21/19 18:42 20:04 20:04 WBC RBC Hgb Hct MCH MCHC RDW Lymph % (Auto) [place] % (Auto) Eos % (Auto) Lymph # [place] # Eos # Seg Neutrophils % Seg Neuts % (Manual) Lymphocytes % (Manual) Eosinophils % (Manual) Seg Neutrophils # Lymphocytes # (Manual) Eosinophils # (Manual) PT INR D-Dimer POC ABG pH POC ABG pCO2 56.7 H POC ABG pO2 291 H ABG pO2 ABG HCO3 ABG Base Excess ABG Hemoglobin Oxyhemoglobin Sodium Potassium Chloride Carbon Dioxide BUN Creatinine Glucose POC Glucose Calcium Phosphorus Magnesium ALT Alkaline Phosphatase Total Creatine Kinase CK-MB (CK-2) Rel Index Troponin T Albumin LDL Cholesterol Direct PTH Intact Salicylates < 0.3 L Acetaminophen < 5.0 L Crossmatch 02/21/19 02/22/19 02/22/19 22:35 03:42 03:42 WBC RBC 3.20 L Hgb 8.8 L Hct 27.6 L MCH MCHC RDW 18.9 H Lymph % (Auto) 7.4 L [place] % (Auto) Eos % (Auto) Lymph # 0.7 L [place] # Eos # Seg Neutrophils % 84.7 H Seg Neuts % (Manual) Lymphocytes % (Manual) Eosinophils % (Manual) Seg Neutrophils # Lymphocytes # (Manual) Eosinophils # (Manual) PT INR D-Dimer POC ABG pH POC ABG pCO2 POC ABG pO2 ABG pO2 ABG HCO3 ABG Base Excess ABG Hemoglobin Oxyhemoglobin Sodium 134 L Potassium 2.6 L* D Chloride Carbon Dioxide BUN Creatinine Glucose POC Glucose Calcium Phosphorus Magnesium ALT Alkaline Phosphatase Total Creatine Kinase CK-MB (CK-2) Rel Index 5.2 H Troponin T 0.202 H* Albumin LDL Cholesterol Direct PTH Intact Salicylates Acetaminophen Crossmatch 02/22/19 02/22/19 02/22/19 03:42 05:54 09:04 WBC RBC Hgb Hct MCH MCHC RDW Lymph % (Auto) [place] % (Auto) Eos % (Auto) Lymph # [place] # Eos # Seg Neutrophils % Seg Neuts % (Manual) Lymphocytes % (Manual) Eosinophils % (Manual) Seg Neutrophils # Lymphocytes # (Manual) Eosinophils # (Manual) PT INR D-Dimer 2987.82 H POC ABG pH 7.451 H POC ABG pCO2 POC ABG pO2 ABG pO2 ABG HCO3 ABG Base Excess ABG Hemoglobin Oxyhemoglobin Sodium Potassium Chloride Carbon Dioxide BUN Creatinine Glucose POC Glucose Calcium Phosphorus Magnesium ALT Alkaline Phosphatase Total Creatine Kinase CK-MB (CK-2) Rel Index 5.7 H Troponin T 0.193 H* Albumin LDL Cholesterol Direct PTH Intact Salicylates Acetaminophen Crossmatch 02/22/19 02/22/19 02/23/19 10:36 23:56 00:52 WBC RBC Hgb Hct MCH MCHC RDW Lymph % (Auto) [place] % (Auto) Eos % (Auto) Lymph # [place] # Eos # Seg Neutrophils % Seg Neuts % (Manual) Lymphocytes % (Manual) Eosinophils % (Manual) Seg Neutrophils # Lymphocytes # (Manual) Eosinophils # (Manual) PT INR D-Dimer POC ABG pH POC ABG pCO2 POC ABG pO2 ABG pO2 ABG HCO3 ABG Base Excess ABG Hemoglobin Oxyhemoglobin Sodium Potassium 3.1 L Chloride Carbon Dioxide BUN Creatinine Glucose POC Glucose 58 L 111 H Calcium Phosphorus Magnesium ALT Alkaline Phosphatase Total Creatine Kinase CK-MB (CK-2) Rel Index Troponin T Albumin LDL Cholesterol Direct PTH Intact Salicylates Acetaminophen Crossmatch 02/23/19 02/23/19 02/23/19 05:00 06:35 14:26 WBC RBC Hgb Hct MCH MCHC RDW Lymph % (Auto) [place] % (Auto) Eos % (Auto) Lymph # [place] # Eos # Seg Neutrophils % Seg Neuts % (Manual) Lymphocytes % (Manual) Eosinophils % (Manual) Seg Neutrophils # Lymphocytes # (Manual) Eosinophils # (Manual) PT INR D-Dimer POC ABG pH POC ABG pCO2 POC ABG pO2 ABG pO2 ABG HCO3 ABG Base Excess ABG Hemoglobin Oxyhemoglobin Sodium 135 L Potassium 3.1 L Chloride Carbon Dioxide BUN 21 H Creatinine 2.0 H Glucose 57 L POC Glucose 64 L 62 L Calcium Phosphorus Magnesium ALT Alkaline Phosphatase Total Creatine Kinase CK-MB (CK-2) Rel Index Troponin T Albumin LDL Cholesterol Direct PTH Intact Salicylates Acetaminophen Crossmatch 02/24/19 02/24/19 02/24/19 02:11 04:12 04:55 WBC RBC 2.84 L Hgb 7.8 L Hct 24.5 L MCH MCHC RDW 19.5 H Lymph % (Auto) [place] % (Auto) Eos % (Auto) Lymph # [place] # Eos # Seg Neutrophils % Seg Neuts % (Manual) Lymphocytes % (Manual) Eosinophils % (Manual) Seg Neutrophils # Lymphocytes # (Manual) Eosinophils # (Manual) PT INR D-Dimer POC ABG pH 7.511 H POC ABG pCO2 33.9 L POC ABG pO2 62 L ABG pO2 ABG HCO3 ABG Base Excess ABG Hemoglobin Oxyhemoglobin Sodium Potassium Chloride Carbon Dioxide BUN Creatinine Glucose POC Glucose 69 L Calcium Phosphorus Magnesium ALT Alkaline Phosphatase Total Creatine Kinase CK-MB (CK-2) Rel Index Troponin T Albumin LDL Cholesterol Direct PTH Intact Salicylates Acetaminophen Crossmatch 02/24/19 02/24/19 02/25/19 04:55 05:41 04:45 WBC RBC Hgb Hct MCH MCHC RDW Lymph % (Auto) [place] % (Auto) Eos % (Auto) Lymph # [place] # Eos # Seg Neutrophils % Seg Neuts % (Manual) Lymphocytes % (Manual) Eosinophils % (Manual) Seg Neutrophils # Lymphocytes # (Manual) Eosinophils # (Manual) PT INR D-Dimer POC ABG pH 7.466 H POC ABG pCO2 POC ABG pO2 75 L ABG pO2 ABG HCO3 ABG Base Excess ABG Hemoglobin Oxyhemoglobin Sodium Potassium Chloride Carbon Dioxide BUN Creatinine 1.8 H Glucose 73 L POC Glucose 127 H Calcium Phosphorus Magnesium ALT Alkaline Phosphatase Total Creatine Kinase CK-MB (CK-2) Rel Index Troponin T Albumin LDL Cholesterol Direct PTH Intact Salicylates Acetaminophen Crossmatch 02/25/19 02/25/19 02/26/19 16:34 21:33 03:45 WBC RBC 2.96 L Hgb 8.0 L Hct 25.8 L MCH 27 L MCHC 31 L RDW 20.0 H Lymph % (Auto) [place] % (Auto) Eos % (Auto) Lymph # [place] # Eos # Seg Neutrophils % Seg Neuts % (Manual) Lymphocytes % (Manual) Eosinophils % (Manual) Seg Neutrophils # Lymphocytes # (Manual) Eosinophils # (Manual) PT INR D-Dimer POC ABG pH POC ABG pCO2 POC ABG pO2 ABG pO2 ABG HCO3 ABG Base Excess ABG Hemoglobin Oxyhemoglobin Sodium Potassium Chloride Carbon Dioxide BUN Creatinine Glucose POC Glucose 141 H 106 H Calcium Phosphorus Magnesium ALT Alkaline Phosphatase Total Creatine Kinase CK-MB (CK-2) Rel Index Troponin T Albumin LDL Cholesterol Direct PTH Intact Salicylates Acetaminophen Crossmatch 02/26/19 02/26/19 02/26/19 03:45 04:13 07:53 WBC RBC Hgb Hct MCH MCHC RDW Lymph % (Auto) [place] % (Auto) Eos % (Auto) Lymph # [place] # Eos # Seg Neutrophils % Seg Neuts % (Manual) Lymphocytes % (Manual) Eosinophils % (Manual) Seg Neutrophils # Lymphocytes # (Manual) Eosinophils # (Manual) PT INR D-Dimer POC ABG pH 7.470 H POC ABG pCO2 POC ABG pO2 ABG pO2 ABG HCO3 ABG Base Excess ABG Hemoglobin Oxyhemoglobin Sodium Potassium Chloride Carbon Dioxide BUN Creatinine 1.8 H Glucose POC Glucose 110 H Calcium Phosphorus Magnesium ALT Alkaline Phosphatase Total Creatine Kinase CK-MB (CK-2) Rel Index Troponin T Albumin LDL Cholesterol Direct PTH Intact Salicylates Acetaminophen Crossmatch 02/26/19 02/26/19 02/27/19 11:56 17:43 00:12 WBC RBC Hgb Hct MCH MCHC RDW Lymph % (Auto) [place] % (Auto) Eos % (Auto) Lymph # [place] # Eos # Seg Neutrophils % Seg Neuts % (Manual) Lymphocytes % (Manual) Eosinophils % (Manual) Seg Neutrophils # Lymphocytes # (Manual) Eosinophils # (Manual) PT INR D-Dimer POC ABG pH POC ABG pCO2 POC ABG pO2 ABG pO2 ABG HCO3 ABG Base Excess ABG Hemoglobin Oxyhemoglobin Sodium Potassium Chloride Carbon Dioxide BUN Creatinine Glucose POC Glucose 112 H 127 H 127 H Calcium Phosphorus Magnesium ALT Alkaline Phosphatase Total Creatine Kinase CK-MB (CK-2) Rel Index Troponin T Albumin LDL Cholesterol Direct PTH Intact Salicylates Acetaminophen Crossmatch 02/27/19 02/27/19 02/27/19 04:35 13:15 18:02 WBC RBC Hgb Hct MCH MCHC RDW Lymph % (Auto) [place] % (Auto) Eos % (Auto) Lymph # [place] # Eos # Seg Neutrophils % Seg Neuts % (Manual) Lymphocytes % (Manual) Eosinophils % (Manual) Seg Neutrophils # Lymphocytes # (Manual) Eosinophils # (Manual) PT INR D-Dimer POC ABG pH 7.483 H POC ABG pCO2 POC ABG pO2 61 L ABG pO2 ABG HCO3 ABG Base Excess ABG Hemoglobin Oxyhemoglobin Sodium Potassium Chloride Carbon Dioxide BUN Creatinine Glucose POC Glucose 143 H 106 H Calcium Phosphorus Magnesium ALT Alkaline Phosphatase Total Creatine Kinase CK-MB (CK-2) Rel Index Troponin T Albumin LDL Cholesterol Direct PTH Intact Salicylates Acetaminophen Crossmatch 02/28/19 02/28/19 02/28/19 05:50 11:59 17:52 WBC RBC Hgb Hct MCH MCHC RDW Lymph % (Auto) [place] % (Auto) Eos % (Auto) Lymph # [place] # Eos # Seg Neutrophils % Seg Neuts % (Manual) Lymphocytes % (Manual) Eosinophils % (Manual) Seg Neutrophils # Lymphocytes # (Manual) Eosinophils # (Manual) PT INR D-Dimer POC ABG pH POC ABG pCO2 POC ABG pO2 ABG pO2 ABG HCO3 ABG Base Excess ABG Hemoglobin Oxyhemoglobin Sodium Potassium Chloride Carbon Dioxide BUN Creatinine Glucose POC Glucose 134 H 128 H 142 H Calcium Phosphorus Magnesium ALT Alkaline Phosphatase Total Creatine Kinase CK-MB (CK-2) Rel Index Troponin T Albumin LDL Cholesterol Direct PTH Intact Salicylates Acetaminophen Crossmatch 02/28/19 03/01/19 03/01/19 23:13 05:40 09:39 WBC RBC Hgb Hct MCH MCHC RDW Lymph % (Auto) [place] % (Auto) Eos % (Auto) Lymph # [place] # Eos # Seg Neutrophils % Seg Neuts % (Manual) Lymphocytes % (Manual) Eosinophils % (Manual) Seg Neutrophils # Lymphocytes # (Manual) Eosinophils # (Manual) PT 16.3 H INR 1.35 H D-Dimer POC ABG pH POC ABG pCO2 POC ABG pO2 ABG pO2 ABG HCO3 ABG Base Excess ABG Hemoglobin Oxyhemoglobin Sodium Potassium Chloride Carbon Dioxide BUN Creatinine Glucose POC Glucose 112 H 111 H Calcium Phosphorus Magnesium ALT Alkaline Phosphatase Total Creatine Kinase CK-MB (CK-2) Rel Index Troponin T Albumin LDL Cholesterol Direct PTH Intact Salicylates Acetaminophen Crossmatch 03/01/19 03/01/19 03/01/19 11:56 13:54 17:59 WBC RBC Hgb Hct MCH MCHC RDW Lymph % (Auto) [place] % (Auto) Eos % (Auto) Lymph # [place] # Eos # Seg Neutrophils % Seg Neuts % (Manual) Lymphocytes % (Manual) Eosinophils % (Manual) Seg Neutrophils # Lymphocytes # (Manual) Eosinophils # (Manual) PT INR D-Dimer POC ABG pH POC ABG pCO2 POC ABG pO2 ABG pO2 ABG HCO3 ABG Base Excess ABG Hemoglobin Oxyhemoglobin Sodium Potassium Chloride Carbon Dioxide BUN 33 H Creatinine 2.8 H D Glucose 176 H POC Glucose 199 H 147 H Calcium Phosphorus Magnesium ALT Alkaline Phosphatase Total Creatine Kinase CK-MB (CK-2) Rel Index Troponin T Albumin LDL Cholesterol Direct PTH Intact Salicylates Acetaminophen Crossmatch 03/02/19 03/02/19 03/02/19 05:15 05:15 05:15 WBC RBC 2.73 L Hgb 7.4 L Hct 23.0 L MCH 27 L MCHC RDW 19.9 H Lymph % (Auto) [place] % (Auto) 7.9 H Eos % (Auto) 7.6 H Lymph # 1.0 L [place] # Eos # 0.5 H Seg Neutrophils % Seg Neuts % (Manual) Lymphocytes % (Manual) Eosinophils % (Manual) Seg Neutrophils # Lymphocytes # (Manual) Eosinophils # (Manual) PT INR D-Dimer POC ABG pH POC ABG pCO2 POC ABG pO2 ABG pO2 ABG HCO3 ABG Base Excess ABG Hemoglobin Oxyhemoglobin Sodium Potassium Chloride Carbon Dioxide BUN 43 H Creatinine 3.2 H Glucose POC Glucose Calcium Phosphorus 2.30 L Magnesium ALT Alkaline Phosphatase Total Creatine Kinase CK-MB (CK-2) Rel Index Troponin T Albumin LDL Cholesterol Direct PTH Intact 267.6 H Salicylates Acetaminophen Crossmatch 03/02/19 03/02/19 03/03/19 12:32 18:20 13:30 WBC RBC Hgb Hct MCH MCHC RDW Lymph % (Auto) [place] % (Auto) Eos % (Auto) Lymph # [place] # Eos # Seg Neutrophils % Seg Neuts % (Manual) Lymphocytes % (Manual) Eosinophils % (Manual) Seg Neutrophils # Lymphocytes # (Manual) Eosinophils # (Manual) PT INR D-Dimer POC ABG pH POC ABG pCO2 POC ABG pO2 ABG pO2 ABG HCO3 ABG Base Excess ABG Hemoglobin Oxyhemoglobin Sodium Potassium Chloride 97.3 L Carbon Dioxide BUN 26 H Creatinine 2.2 H Glucose 73 L POC Glucose 111 H 156 H Calcium Phosphorus Magnesium ALT Alkaline Phosphatase Total Creatine Kinase CK-MB (CK-2) Rel Index Troponin T Albumin LDL Cholesterol Direct PTH Intact Salicylates Acetaminophen Crossmatch 03/04/19 03/04/19 03/04/19 00:02 05:37 05:40 WBC RBC 2.63 L Hgb 7.2 L Hct 22.2 L MCH MCHC RDW 20.2 H Lymph % (Auto) 10.5 L [place] % (Auto) Eos % (Auto) 4.6 H Lymph # 0.7 L [place] # Eos # Seg Neutrophils % 76.9 H Seg Neuts % (Manual) Lymphocytes % (Manual) Eosinophils % (Manual) Seg Neutrophils # Lymphocytes # (Manual) Eosinophils # (Manual) PT INR D-Dimer POC ABG pH POC ABG pCO2 POC ABG pO2 ABG pO2 ABG HCO3 ABG Base Excess ABG Hemoglobin Oxyhemoglobin Sodium Potassium Chloride Carbon Dioxide BUN Creatinine Glucose POC Glucose 136 H 123 H Calcium Phosphorus Magnesium ALT Alkaline Phosphatase Total Creatine Kinase CK-MB (CK-2) Rel Index Troponin T Albumin LDL Cholesterol Direct PTH Intact Salicylates Acetaminophen Crossmatch 03/04/19 03/04/19 03/04/19 05:40 11:39 23:20 WBC RBC Hgb Hct MCH MCHC RDW Lymph % (Auto) [place] % (Auto) Eos % (Auto) Lymph # [place] # Eos # Seg Neutrophils % Seg Neuts % (Manual) Lymphocytes % (Manual) Eosinophils % (Manual) Seg Neutrophils # Lymphocytes # (Manual) Eosinophils # (Manual) PT INR D-Dimer POC ABG pH POC ABG pCO2 POC ABG pO2 ABG pO2 ABG HCO3 ABG Base Excess ABG Hemoglobin Oxyhemoglobin Sodium Potassium Chloride Carbon Dioxide BUN 34 H Creatinine 2.7 H Glucose 114 H POC Glucose 175 H 151 H Calcium Phosphorus Magnesium ALT Alkaline Phosphatase Total Creatine Kinase CK-MB (CK-2) Rel Index Troponin T Albumin LDL Cholesterol Direct PTH Intact Salicylates Acetaminophen Crossmatch 03/05/19 03/05/19 03/05/19 05:37 12:08 17:11 WBC RBC Hgb Hct MCH MCHC RDW Lymph % (Auto) [place] % (Auto) Eos % (Auto) Lymph # [place] # Eos # Seg Neutrophils % Seg Neuts % (Manual) Lymphocytes % (Manual) Eosinophils % (Manual) Seg Neutrophils # Lymphocytes # (Manual) Eosinophils # (Manual) PT INR D-Dimer POC ABG pH POC ABG pCO2 POC ABG pO2 ABG pO2 ABG HCO3 ABG Base Excess ABG Hemoglobin Oxyhemoglobin Sodium Potassium Chloride Carbon Dioxide BUN Creatinine Glucose POC Glucose 134 H 135 H 135 H Calcium Phosphorus Magnesium ALT Alkaline Phosphatase Total Creatine Kinase CK-MB (CK-2) Rel Index Troponin T Albumin LDL Cholesterol Direct PTH Intact Salicylates Acetaminophen Crossmatch 03/06/19 03/06/19 03/06/19 00:16 13:05 18:09 WBC RBC Hgb Hct MCH MCHC RDW Lymph % (Auto) [place] % (Auto) Eos % (Auto) Lymph # [place] # Eos # Seg Neutrophils % Seg Neuts % (Manual) Lymphocytes % (Manual) Eosinophils % (Manual) Seg Neutrophils # Lymphocytes # (Manual) Eosinophils # (Manual) PT INR D-Dimer POC ABG pH POC ABG pCO2 POC ABG pO2 ABG pO2 ABG HCO3 ABG Base Excess ABG Hemoglobin Oxyhemoglobin Sodium Potassium Chloride Carbon Dioxide BUN Creatinine Glucose POC Glucose 117 H 113 H 131 H Calcium Phosphorus Magnesium ALT Alkaline Phosphatase Total Creatine Kinase CK-MB (CK-2) Rel Index Troponin T Albumin LDL Cholesterol Direct PTH Intact Salicylates Acetaminophen Crossmatch 03/07/19 03/08/19 03/08/19 05:25 05:33 16:00 WBC RBC 2.44 L Hgb 6.6 L Hct 20.8 L MCH 27 L MCHC RDW 19.2 H Lymph % (Auto) [place] % (Auto) Eos % (Auto) 8.6 H Lymph # 0.8 L [place] # Eos # 0.5 H Seg Neutrophils % 70.7 H Seg Neuts % (Manual) Lymphocytes % (Manual) Eosinophils % (Manual) Seg Neutrophils # Lymphocytes # (Manual) Eosinophils # (Manual) PT INR D-Dimer POC ABG pH POC ABG pCO2 POC ABG pO2 ABG pO2 ABG HCO3 ABG Base Excess ABG Hemoglobin Oxyhemoglobin Sodium Potassium Chloride Carbon Dioxide BUN Creatinine Glucose POC Glucose 106 H 108 H Calcium Phosphorus Magnesium ALT Alkaline Phosphatase Total Creatine Kinase CK-MB (CK-2) Rel Index Troponin T Albumin LDL Cholesterol Direct PTH Intact Salicylates Acetaminophen Crossmatch 03/08/19 03/08/19 03/08/19 16:00 18:38 Unknown WBC RBC Hgb Hct MCH MCHC RDW Lymph % (Auto) [place] % (Auto) Eos % (Auto) Lymph # [place] # Eos # Seg Neutrophils % Seg Neuts % (Manual) Lymphocytes % (Manual) Eosinophils % (Manual) Seg Neutrophils # Lymphocytes # (Manual) Eosinophils # (Manual) PT INR D-Dimer POC ABG pH POC ABG pCO2 POC ABG pO2 ABG pO2 ABG HCO3 ABG Base Excess ABG Hemoglobin Oxyhemoglobin Sodium Potassium 5.4 H D Chloride Carbon Dioxide BUN 47 H Creatinine 2.6 H Glucose POC Glucose 123 H Calcium Phosphorus Magnesium ALT < 5 L Alkaline Phosphatase Total Creatine Kinase CK-MB (CK-2) Rel Index Troponin T Albumin 2.2 L LDL Cholesterol Direct PTH Intact Salicylates Acetaminophen Crossmatch See Detail 03/09/19 03/09/19 03/09/19 10:48 12:28 13:53 WBC RBC 2.85 L Hgb 7.7 L Hct 24.2 L MCH 27 L MCHC RDW 18.7 H Lymph % (Auto) [place] % (Auto) Eos % (Auto) Lymph # [place] # Eos # Seg Neutrophils % Seg Neuts % (Manual) Lymphocytes % (Manual) Eosinophils % (Manual) Seg Neutrophils # Lymphocytes # (Manual) Eosinophils # (Manual) PT INR D-Dimer POC ABG pH POC ABG pCO2 POC ABG pO2 ABG pO2 ABG HCO3 30.5 H ABG Base Excess 5.6 H ABG Hemoglobin 8.1 L Oxyhemoglobin 93.8 L Sodium Potassium Chloride Carbon Dioxide BUN Creatinine Glucose POC Glucose 114 H Calcium Phosphorus Magnesium ALT Alkaline Phosphatase Total Creatine Kinase CK-MB (CK-2) Rel Index Troponin T Albumin LDL Cholesterol Direct PTH Intact Salicylates Acetaminophen Crossmatch 03/09/19 03/09/19 03/10/19 17:58 23:53 12:01 WBC RBC Hgb Hct MCH MCHC RDW Lymph % (Auto) [place] % (Auto) Eos % (Auto) Lymph # [place] # Eos # Seg Neutrophils % Seg Neuts % (Manual) Lymphocytes % (Manual) Eosinophils % (Manual) Seg Neutrophils # Lymphocytes # (Manual) Eosinophils # (Manual) PT INR D-Dimer POC ABG pH POC ABG pCO2 POC ABG pO2 ABG pO2 ABG HCO3 ABG Base Excess ABG Hemoglobin Oxyhemoglobin Sodium Potassium Chloride Carbon Dioxide BUN Creatinine Glucose POC Glucose 108 H 128 H 144 H Calcium Phosphorus Magnesium ALT Alkaline Phosphatase Total Creatine Kinase CK-MB (CK-2) Rel Index Troponin T Albumin LDL Cholesterol Direct PTH Intact Salicylates Acetaminophen Crossmatch 03/10/19 03/11/19 03/11/19 16:50 00:24 05:02 WBC RBC Hgb Hct MCH MCHC RDW Lymph % (Auto) [place] % (Auto) Eos % (Auto) Lymph # [place] # Eos # Seg Neutrophils % Seg Neuts % (Manual) Lymphocytes % (Manual) Eosinophils % (Manual) Seg Neutrophils # Lymphocytes # (Manual) Eosinophils # (Manual) PT INR D-Dimer POC ABG pH POC ABG pCO2 POC ABG pO2 ABG pO2 ABG HCO3 ABG Base Excess ABG Hemoglobin Oxyhemoglobin Sodium Potassium Chloride Carbon Dioxide BUN Creatinine Glucose POC Glucose 147 H 123 H 120 H Calcium Phosphorus Magnesium ALT Alkaline Phosphatase Total Creatine Kinase CK-MB (CK-2) Rel Index Troponin T Albumin LDL Cholesterol Direct PTH Intact Salicylates Acetaminophen Crossmatch 03/11/19 03/11/19 03/11/19 11:56 12:20 18:37 WBC RBC Hgb Hct MCH MCHC RDW Lymph % (Auto) [place] % (Auto) Eos % (Auto) Lymph # [place] # Eos # Seg Neutrophils % Seg Neuts % (Manual) Lymphocytes % (Manual) Eosinophils % (Manual) Seg Neutrophils # Lymphocytes # (Manual) Eosinophils # (Manual) PT INR D-Dimer POC ABG pH POC ABG pCO2 POC ABG pO2 ABG pO2 ABG HCO3 ABG Base Excess ABG Hemoglobin Oxyhemoglobin Sodium Potassium 5.2 H Chloride Carbon Dioxide BUN Creatinine Glucose POC Glucose 123 H 125 H Calcium Phosphorus Magnesium ALT Alkaline Phosphatase Total Creatine Kinase CK-MB (CK-2) Rel Index Troponin T Albumin LDL Cholesterol Direct PTH Intact Salicylates Acetaminophen Crossmatch 03/11/19 03/12/19 03/12/19 22:52 12:04 18:25 WBC RBC Hgb Hct MCH MCHC RDW Lymph % (Auto) [place] % (Auto) Eos % (Auto) Lymph # [place] # Eos # Seg Neutrophils % Seg Neuts % (Manual) Lymphocytes % (Manual) Eosinophils % (Manual) Seg Neutrophils # Lymphocytes # (Manual) Eosinophils # (Manual) PT INR D-Dimer POC ABG pH POC ABG pCO2 POC ABG pO2 ABG pO2 ABG HCO3 ABG Base Excess ABG Hemoglobin Oxyhemoglobin Sodium Potassium Chloride Carbon Dioxide BUN Creatinine Glucose POC Glucose 110 H 106 H 118 H Calcium Phosphorus Magnesium ALT Alkaline Phosphatase Total Creatine Kinase CK-MB (CK-2) Rel Index Troponin T Albumin LDL Cholesterol Direct PTH Intact Salicylates Acetaminophen Crossmatch 03/12/19 03/13/19 03/13/19 23:36 04:38 04:38 WBC RBC 2.95 L Hgb 7.9 L Hct 24.9 L MCH 27 L MCHC RDW 19.9 H Lymph % (Auto) 11.1 L [place] % (Auto) 8.1 H Eos % (Auto) 4.4 H Lymph # 0.9 L [place] # Eos # Seg Neutrophils % 75.4 H Seg Neuts % (Manual) Lymphocytes % (Manual) Eosinophils % (Manual) Seg Neutrophils # Lymphocytes # (Manual) Eosinophils # (Manual) PT INR D-Dimer POC ABG pH POC ABG pCO2 POC ABG pO2 ABG pO2 ABG HCO3 ABG Base Excess ABG Hemoglobin Oxyhemoglobin Sodium 136 L Potassium 5.1 H Chloride 93.8 L Carbon Dioxide BUN 48 H Creatinine 2.7 H Glucose 102 H POC Glucose 115 H Calcium Phosphorus Magnesium ALT < 5 L Alkaline Phosphatase 143 H Total Creatine Kinase CK-MB (CK-2) Rel Index Troponin T Albumin 2.5 L LDL Cholesterol Direct PTH Intact Salicylates Acetaminophen Crossmatch 03/13/19 03/13/19 03/13/19 05:33 13:37 18:03 WBC RBC Hgb Hct MCH MCHC RDW Lymph % (Auto) [place] % (Auto) Eos % (Auto) Lymph # [place] # Eos # Seg Neutrophils % Seg Neuts % (Manual) Lymphocytes % (Manual) Eosinophils % (Manual) Seg Neutrophils # Lymphocytes # (Manual) Eosinophils # (Manual) PT INR D-Dimer POC ABG pH POC ABG pCO2 POC ABG pO2 ABG pO2 ABG HCO3 ABG Base Excess ABG Hemoglobin Oxyhemoglobin Sodium Potassium Chloride Carbon Dioxide BUN Creatinine Glucose POC Glucose 140 H 150 H 158 H Calcium Phosphorus Magnesium ALT Alkaline Phosphatase Total Creatine Kinase CK-MB (CK-2) Rel Index Troponin T Albumin LDL Cholesterol Direct PTH Intact Salicylates Acetaminophen Crossmatch 03/13/19 03/14/19 03/14/19 23:32 05:24 12:20 WBC RBC Hgb Hct MCH MCHC RDW Lymph % (Auto) [place] % (Auto) Eos % (Auto) Lymph # [place] # Eos # Seg Neutrophils % Seg Neuts % (Manual) Lymphocytes % (Manual) Eosinophils % (Manual) Seg Neutrophils # Lymphocytes # (Manual) Eosinophils # (Manual) PT INR D-Dimer POC ABG pH POC ABG pCO2 POC ABG pO2 ABG pO2 ABG HCO3 ABG Base Excess ABG Hemoglobin Oxyhemoglobin Sodium Potassium Chloride Carbon Dioxide BUN Creatinine Glucose POC Glucose 162 H 146 H 127 H Calcium Phosphorus Magnesium ALT Alkaline Phosphatase Total Creatine Kinase CK-MB (CK-2) Rel Index Troponin T Albumin LDL Cholesterol Direct PTH Intact Salicylates Acetaminophen Crossmatch 03/14/19 03/14/19 03/15/19 18:05 23:57 04:38 WBC 12.8 H RBC 3.11 L Hgb 8.1 L Hct 26.5 L MCH 26 L MCHC 31 L RDW 19.7 H Lymph % (Auto) 4.4 L [place] % (Auto) 7.4 H Eos % (Auto) Lymph # 0.6 L [place] # 0.9 H Eos # Seg Neutrophils % 87.3 H Seg Neuts % (Manual) Lymphocytes % (Manual) Eosinophils % (Manual) Seg Neutrophils # 11.2 H Lymphocytes # (Manual) Eosinophils # (Manual) PT INR D-Dimer POC ABG pH POC ABG pCO2 POC ABG pO2 ABG pO2 ABG HCO3 ABG Base Excess ABG Hemoglobin Oxyhemoglobin Sodium Potassium Chloride Carbon Dioxide BUN Creatinine Glucose POC Glucose 142 H 155 H Calcium Phosphorus Magnesium ALT Alkaline Phosphatase Total Creatine Kinase CK-MB (CK-2) Rel Index Troponin T Albumin LDL Cholesterol Direct PTH Intact Salicylates Acetaminophen Crossmatch 03/15/19 03/15/19 03/15/19 04:38 05:31 11:32 WBC RBC Hgb Hct MCH MCHC RDW Lymph % (Auto) [place] % (Auto) Eos % (Auto) Lymph # [place] # Eos # Seg Neutrophils % Seg Neuts % (Manual) Lymphocytes % (Manual) Eosinophils % (Manual) Seg Neutrophils # Lymphocytes # (Manual) Eosinophils # (Manual) PT INR D-Dimer POC ABG pH POC ABG pCO2 POC ABG pO2 ABG pO2 ABG HCO3 ABG Base Excess ABG Hemoglobin Oxyhemoglobin Sodium 135 L Potassium Chloride 91.9 L Carbon Dioxide BUN 54 H Creatinine 2.8 H Glucose 128 H POC Glucose 160 H 109 H Calcium 11.1 H Phosphorus Magnesium ALT Alkaline Phosphatase 161 H Total Creatine Kinase CK-MB (CK-2) Rel Index Troponin T Albumin 2.3 L LDL Cholesterol Direct PTH Intact Salicylates Acetaminophen Crossmatch 03/15/19 03/15/19 03/16/19 18:15 23:41 05:40 WBC RBC Hgb Hct MCH MCHC RDW Lymph % (Auto) [place] % (Auto) Eos % (Auto) Lymph # [place] # Eos # Seg Neutrophils % Seg Neuts % (Manual) Lymphocytes % (Manual) Eosinophils % (Manual) Seg Neutrophils # Lymphocytes # (Manual) Eosinophils # (Manual) PT INR D-Dimer POC ABG pH POC ABG pCO2 POC ABG pO2 ABG pO2 ABG HCO3 ABG Base Excess ABG Hemoglobin Oxyhemoglobin Sodium Potassium Chloride Carbon Dioxide BUN Creatinine Glucose POC Glucose 151 H 110 H 163 H Calcium Phosphorus Magnesium ALT Alkaline Phosphatase Total Creatine Kinase CK-MB (CK-2) Rel Index Troponin T Albumin LDL Cholesterol Direct PTH Intact Salicylates Acetaminophen Crossmatch 03/16/19 03/16/19 03/16/19 11:55 17:04 23:58 WBC RBC Hgb Hct MCH MCHC RDW Lymph % (Auto) [place] % (Auto) Eos % (Auto) Lymph # [place] # Eos # Seg Neutrophils % Seg Neuts % (Manual) Lymphocytes % (Manual) Eosinophils % (Manual) Seg Neutrophils # Lymphocytes # (Manual) Eosinophils # (Manual) PT INR D-Dimer POC ABG pH POC ABG pCO2 POC ABG pO2 ABG pO2 ABG HCO3 ABG Base Excess ABG Hemoglobin Oxyhemoglobin Sodium Potassium Chloride Carbon Dioxide BUN Creatinine Glucose POC Glucose 114 H 147 H 192 H Calcium Phosphorus Magnesium ALT Alkaline Phosphatase Total Creatine Kinase CK-MB (CK-2) Rel Index Troponin T Albumin LDL Cholesterol Direct PTH Intact Salicylates Acetaminophen Crossmatch 03/17/19 03/17/19 03/17/19 05:53 11:17 17:01 WBC RBC Hgb Hct MCH MCHC RDW Lymph % (Auto) [place] % (Auto) Eos % (Auto) Lymph # [place] # Eos # Seg Neutrophils % Seg Neuts % (Manual) Lymphocytes % (Manual) Eosinophils % (Manual) Seg Neutrophils # Lymphocytes # (Manual) Eosinophils # (Manual) PT INR D-Dimer POC ABG pH POC ABG pCO2 POC ABG pO2 ABG pO2 ABG HCO3 ABG Base Excess ABG Hemoglobin Oxyhemoglobin Sodium Potassium Chloride Carbon Dioxide BUN Creatinine Glucose POC Glucose 151 H 161 H 152 H Calcium Phosphorus Magnesium ALT Alkaline Phosphatase Total Creatine Kinase CK-MB (CK-2) Rel Index Troponin T Albumin LDL Cholesterol Direct PTH Intact Salicylates Acetaminophen Crossmatch 03/17/19 03/18/19 03/18/19 21:47 04:15 04:44 WBC RBC Hgb Hct MCH MCHC RDW Lymph % (Auto) [place] % (Auto) Eos % (Auto) Lymph # [place] # Eos # Seg Neutrophils % Seg Neuts % (Manual) Lymphocytes % (Manual) Eosinophils % (Manual) Seg Neutrophils # Lymphocytes # (Manual) Eosinophils # (Manual) PT INR D-Dimer POC ABG pH POC ABG pCO2 POC ABG pO2 ABG pO2 102.8 H ABG HCO3 28.3 H ABG Base Excess ABG Hemoglobin 10.4 L Oxyhemoglobin 94.5 L Sodium Potassium Chloride Carbon Dioxide BUN Creatinine Glucose POC Glucose 170 H 150 H Calcium Phosphorus Magnesium ALT Alkaline Phosphatase Total Creatine Kinase CK-MB (CK-2) Rel Index Troponin T Albumin LDL Cholesterol Direct PTH Intact Salicylates Acetaminophen Crossmatch 03/18/19 03/18/19 03/18/19 06:38 12:12 17:47 WBC RBC Hgb Hct MCH MCHC RDW Lymph % (Auto) [place] % (Auto) Eos % (Auto) Lymph # [place] # Eos # Seg Neutrophils % Seg Neuts % (Manual) Lymphocytes % (Manual) Eosinophils % (Manual) Seg Neutrophils # Lymphocytes # (Manual) Eosinophils # (Manual) PT INR D-Dimer POC ABG pH 7.510 H POC ABG pCO2 POC ABG pO2 164 H ABG pO2 ABG HCO3 ABG Base Excess ABG Hemoglobin Oxyhemoglobin Sodium Potassium Chloride Carbon Dioxide BUN Creatinine Glucose POC Glucose 145 H 149 H Calcium Phosphorus Magnesium ALT Alkaline Phosphatase Total Creatine Kinase CK-MB (CK-2) Rel Index Troponin T Albumin LDL Cholesterol Direct PTH Intact Salicylates Acetaminophen Crossmatch 03/18/19 03/19/19 03/19/19 23:25 01:11 04:23 WBC 15.6 H RBC 2.51 L Hgb 6.5 L Hct 21.6 L MCH 26 L MCHC 30 L RDW 19.8 H Lymph % (Auto) 6.0 L [place] % (Auto) Eos % (Auto) Lymph # 0.9 L [place] # 1.0 H Eos # Seg Neutrophils % 85.5 H Seg Neuts % (Manual) Lymphocytes % (Manual) Eosinophils % (Manual) Seg Neutrophils # 13.4 H Lymphocytes # (Manual) Eosinophils # (Manual) PT INR D-Dimer POC ABG pH POC ABG pCO2 POC ABG pO2 ABG pO2 78.3 L ABG HCO3 30.7 H ABG Base Excess 5.8 H ABG Hemoglobin 5.8 L Oxyhemoglobin 94.6 L Sodium Potassium Chloride Carbon Dioxide BUN Creatinine Glucose POC Glucose 190 H Calcium Phosphorus Magnesium ALT Alkaline Phosphatase Total Creatine Kinase CK-MB (CK-2) Rel Index Troponin T Albumin LDL Cholesterol Direct PTH Intact Salicylates Acetaminophen Crossmatch 03/19/19 03/19/19 03/19/19 05:22 05:35 08:54 WBC RBC Hgb Hct MCH MCHC RDW Lymph % (Auto) [place] % (Auto) Eos % (Auto) Lymph # [place] # Eos # Seg Neutrophils % Seg Neuts % (Manual) Lymphocytes % (Manual) Eosinophils % (Manual) Seg Neutrophils # Lymphocytes # (Manual) Eosinophils # (Manual) PT INR D-Dimer POC ABG pH POC ABG pCO2 POC ABG pO2 ABG pO2 ABG HCO3 ABG Base Excess ABG Hemoglobin Oxyhemoglobin Sodium Potassium Chloride Carbon Dioxide BUN Creatinine Glucose POC Glucose 167 H Calcium Phosphorus Magnesium ALT Alkaline Phosphatase Total Creatine Kinase CK-MB (CK-2) Rel Index Troponin T Albumin LDL Cholesterol Direct PTH Intact Salicylates Acetaminophen Crossmatch See Detail See Detail 03/19/19 03/19/19 03/19/19 12:36 17:02 23:25 WBC RBC Hgb Hct MCH MCHC RDW Lymph % (Auto) [place] % (Auto) Eos % (Auto) Lymph # [place] # Eos # Seg Neutrophils % Seg Neuts % (Manual) Lymphocytes % (Manual) Eosinophils % (Manual) Seg Neutrophils # Lymphocytes # (Manual) Eosinophils # (Manual) PT INR D-Dimer POC ABG pH POC ABG pCO2 POC ABG pO2 ABG pO2 ABG HCO3 ABG Base Excess ABG Hemoglobin Oxyhemoglobin Sodium Potassium Chloride Carbon Dioxide BUN Creatinine Glucose POC Glucose 167 H 135 H 136 H Calcium Phosphorus Magnesium ALT Alkaline Phosphatase Total Creatine Kinase CK-MB (CK-2) Rel Index Troponin T Albumin LDL Cholesterol Direct PTH Intact Salicylates Acetaminophen Crossmatch 03/20/19 03/20/19 03/20/19 05:38 08:40 08:40 WBC RBC 2.61 L Hgb 7.1 L Hct 22.0 L MCH 27 L MCHC RDW 19.6 H Lymph % (Auto) 8.2 L [place] % (Auto) 8.3 H Eos % (Auto) 5.7 H Lymph # 0.8 L [place] # Eos # 0.5 H Seg Neutrophils % 77.3 H Seg Neuts % (Manual) Lymphocytes % (Manual) Eosinophils % (Manual) Seg Neutrophils # Lymphocytes # (Manual) Eosinophils # (Manual) PT INR D-Dimer POC ABG pH POC ABG pCO2 POC ABG pO2 ABG pO2 ABG HCO3 ABG Base Excess ABG Hemoglobin Oxyhemoglobin Sodium Potassium Chloride 95.9 L Carbon Dioxide BUN 69 H Creatinine 2.8 H Glucose 115 H POC Glucose 134 H Calcium 10.5 H Phosphorus Magnesium ALT Alkaline Phosphatase Total Creatine Kinase CK-MB (CK-2) Rel Index Troponin T Albumin LDL Cholesterol Direct PTH Intact Salicylates Acetaminophen Crossmatch 03/20/19 03/20/19 03/20/19 12:13 18:04 23:49 WBC RBC Hgb Hct MCH MCHC RDW Lymph % (Auto) [place] % (Auto) Eos % (Auto) Lymph # [place] # Eos # Seg Neutrophils % Seg Neuts % (Manual) Lymphocytes % (Manual) Eosinophils % (Manual) Seg Neutrophils # Lymphocytes # (Manual) Eosinophils # (Manual) PT INR D-Dimer POC ABG pH POC ABG pCO2 POC ABG pO2 ABG pO2 ABG HCO3 ABG Base Excess ABG Hemoglobin Oxyhemoglobin Sodium Potassium Chloride Carbon Dioxide BUN Creatinine Glucose POC Glucose 144 H 165 H 172 H Calcium Phosphorus Magnesium ALT Alkaline Phosphatase Total Creatine Kinase CK-MB (CK-2) Rel Index Troponin T Albumin LDL Cholesterol Direct PTH Intact Salicylates Acetaminophen Crossmatch 03/21/19 03/21/19 03/21/19 05:00 06:29 06:30 WBC RBC 2.72 L Hgb 7.4 L Hct 22.9 L MCH 27 L MCHC RDW 19.4 H Lymph % (Auto) [place] % (Auto) Eos % (Auto) Lymph # [place] # Eos # Seg Neutrophils % Seg Neuts % (Manual) 81.0 H Lymphocytes % (Manual) 8.0 L Eosinophils % (Manual) 8.0 H Seg Neutrophils # Lymphocytes # (Manual) 0.7 L Eosinophils # (Manual) 0.7 H PT INR D-Dimer POC ABG pH POC ABG pCO2 POC ABG pO2 ABG pO2 ABG HCO3 ABG Base Excess ABG Hemoglobin Oxyhemoglobin Sodium Potassium Chloride Carbon Dioxide 33 H BUN 43 H Creatinine 1.7 H Glucose 145 H POC Glucose 156 H Calcium Phosphorus Magnesium ALT Alkaline Phosphatase 212 H Total Creatine Kinase CK-MB (CK-2) Rel Index Troponin T Albumin 2.2 L LDL Cholesterol Direct PTH Intact Salicylates Acetaminophen Crossmatch 03/21/19 03/21/19 03/22/19 12:02 18:07 00:21 WBC RBC Hgb Hct MCH MCHC RDW Lymph % (Auto) [place] % (Auto) Eos % (Auto) Lymph # [place] # Eos # Seg Neutrophils % Seg Neuts % (Manual) Lymphocytes % (Manual) Eosinophils % (Manual) Seg Neutrophils # Lymphocytes # (Manual) Eosinophils # (Manual) PT INR D-Dimer POC ABG pH POC ABG pCO2 POC ABG pO2 ABG pO2 ABG HCO3 ABG Base Excess ABG Hemoglobin Oxyhemoglobin Sodium Potassium Chloride Carbon Dioxide BUN Creatinine Glucose POC Glucose 163 H 144 H 153 H Calcium Phosphorus Magnesium ALT Alkaline Phosphatase Total Creatine Kinase CK-MB (CK-2) Rel Index Troponin T Albumin LDL Cholesterol Direct PTH Intact Salicylates Acetaminophen Crossmatch 03/22/19 03/22/19 03/22/19 05:23 05:23 05:31 WBC RBC 2.58 L Hgb 7.1 L Hct 21.8 L MCH 27 L MCHC RDW 19.2 H Lymph % (Auto) [place] % (Auto) Eos % (Auto) Lymph # [place] # Eos # Seg Neutrophils % Seg Neuts % (Manual) Lymphocytes % (Manual) Eosinophils % (Manual) Seg Neutrophils # Lymphocytes # (Manual) Eosinophils # (Manual) PT INR D-Dimer POC ABG pH POC ABG pCO2 POC ABG pO2 ABG pO2 ABG HCO3 ABG Base Excess ABG Hemoglobin Oxyhemoglobin Sodium 147 H Potassium Chloride Carbon Dioxide BUN 68 H Creatinine 2.5 H Glucose POC Glucose 116 H Calcium 10.3 H Phosphorus Magnesium ALT Alkaline Phosphatase Total Creatine Kinase CK-MB (CK-2) Rel Index Troponin T Albumin LDL Cholesterol Direct PTH Intact Salicylates Acetaminophen Crossmatch 03/22/19 03/22/19 03/22/19 08:48 12:37 17:35 WBC RBC Hgb Hct MCH MCHC RDW Lymph % (Auto) [place] % (Auto) Eos % (Auto) Lymph # [place] # Eos # Seg Neutrophils % Seg Neuts % (Manual) Lymphocytes % (Manual) Eosinophils % (Manual) Seg Neutrophils # Lymphocytes # (Manual) Eosinophils # (Manual) PT INR D-Dimer POC ABG pH POC ABG pCO2 POC ABG pO2 ABG pO2 ABG HCO3 ABG Base Excess ABG Hemoglobin Oxyhemoglobin Sodium Potassium Chloride Carbon Dioxide BUN Creatinine Glucose POC Glucose 143 H 155 H Calcium Phosphorus Magnesium ALT Alkaline Phosphatase Total Creatine Kinase CK-MB (CK-2) Rel Index Troponin T Albumin LDL Cholesterol Direct PTH Intact Salicylates Acetaminophen Crossmatch See Detail 03/23/19 03/23/19 03/23/19 00:07 04:00 04:00 WBC 11.2 H RBC 2.32 L Hgb 6.4 L Hct 19.7 L* MCH MCHC RDW 19.4 H Lymph % (Auto) [place] % (Auto) Eos % (Auto) Lymph # [place] # Eos # Seg Neutrophils % Seg Neuts % (Manual) Lymphocytes % (Manual) Eosinophils % (Manual) Seg Neutrophils # Lymphocytes # (Manual) Eosinophils # (Manual) PT INR D-Dimer POC ABG pH POC ABG pCO2 POC ABG pO2 ABG pO2 ABG HCO3 ABG Base Excess ABG Hemoglobin Oxyhemoglobin Sodium 147 H Potassium 5.2 H Chloride Carbon Dioxide BUN 86 H Creatinine 3.2 H Glucose 128 H POC Glucose 135 H Calcium 10.3 H Phosphorus Magnesium ALT Alkaline Phosphatase Total Creatine Kinase CK-MB (CK-2) Rel Index Troponin T Albumin LDL Cholesterol Direct PTH Intact Salicylates Acetaminophen Crossmatch 03/23/19 03/23/19 03/23/19 05:21 11:36 11:36 WBC RBC Hgb 7.9 L Hct 25.0 L MCH MCHC RDW Lymph % (Auto) [place] % (Auto) Eos % (Auto) Lymph # [place] # Eos # Seg Neutrophils % Seg Neuts % (Manual) Lymphocytes % (Manual) Eosinophils % (Manual) Seg Neutrophils # Lymphocytes # (Manual) Eosinophils # (Manual) PT INR D-Dimer POC ABG pH POC ABG pCO2 POC ABG pO2 ABG pO2 ABG HCO3 ABG Base Excess ABG Hemoglobin Oxyhemoglobin Sodium Potassium Chloride Carbon Dioxide BUN Creatinine Glucose POC Glucose 132 H 147 H Calcium Phosphorus Magnesium ALT Alkaline Phosphatase Total Creatine Kinase CK-MB (CK-2) Rel Index Troponin T Albumin LDL Cholesterol Direct PTH Intact Salicylates Acetaminophen Crossmatch 03/23/19 03/24/19 03/24/19 17:31 01:22 04:20 WBC 12.2 H RBC 3.05 L Hgb 8.3 L Hct 25.9 L MCH 27 L MCHC RDW 18.7 H Lymph % (Auto) [place] % (Auto) Eos % (Auto) Lymph # [place] # Eos # Seg Neutrophils % Seg Neuts % (Manual) Lymphocytes % (Manual) Eosinophils % (Manual) Seg Neutrophils # Lymphocytes # (Manual) Eosinophils # (Manual) PT INR D-Dimer POC ABG pH POC ABG pCO2 POC ABG pO2 ABG pO2 ABG HCO3 ABG Base Excess ABG Hemoglobin Oxyhemoglobin Sodium Potassium Chloride Carbon Dioxide BUN Creatinine Glucose POC Glucose 182 H 113 H Calcium Phosphorus Magnesium ALT Alkaline Phosphatase Total Creatine Kinase CK-MB (CK-2) Rel Index Troponin T Albumin LDL Cholesterol Direct PTH Intact Salicylates Acetaminophen Crossmatch 03/24/19 03/24/19 03/24/19 04:20 11:59 18:14 WBC RBC Hgb Hct MCH MCHC RDW Lymph % (Auto) [place] % (Auto) Eos % (Auto) Lymph # [place] # Eos # Seg Neutrophils % Seg Neuts % (Manual) Lymphocytes % (Manual) Eosinophils % (Manual) Seg Neutrophils # Lymphocytes # (Manual) Eosinophils # (Manual) PT INR D-Dimer POC ABG pH POC ABG pCO2 POC ABG pO2 ABG pO2 ABG HCO3 ABG Base Excess ABG Hemoglobin Oxyhemoglobin Sodium Potassium Chloride 94.8 L Carbon Dioxide 32 H BUN 53 H Creatinine 2.3 H Glucose POC Glucose 163 H 134 H Calcium Phosphorus Magnesium ALT Alkaline Phosphatase Total Creatine Kinase CK-MB (CK-2) Rel Index Troponin T Albumin LDL Cholesterol Direct PTH Intact Salicylates Acetaminophen Crossmatch 03/24/19 03/25/19 03/25/19 23:15 05:52 12:02 WBC RBC Hgb Hct MCH MCHC RDW Lymph % (Auto) [place] % (Auto) Eos % (Auto) Lymph # [place] # Eos # Seg Neutrophils % Seg Neuts % (Manual) Lymphocytes % (Manual) Eosinophils % (Manual) Seg Neutrophils # Lymphocytes # (Manual) Eosinophils # (Manual) PT INR D-Dimer POC ABG pH POC ABG pCO2 POC ABG pO2 ABG pO2 ABG HCO3 ABG Base Excess ABG Hemoglobin Oxyhemoglobin Sodium Potassium Chloride Carbon Dioxide BUN Creatinine Glucose POC Glucose 129 H 123 H 125 H Calcium Phosphorus Magnesium ALT Alkaline Phosphatase Total Creatine Kinase CK-MB (CK-2) Rel Index Troponin T Albumin LDL Cholesterol Direct PTH Intact Salicylates Acetaminophen Crossmatch 03/25/19 03/26/19 03/26/19 17:27 00:30 05:35 WBC RBC 3.01 L Hgb 8.1 L Hct 25.7 L MCH 27 L MCHC RDW 19.2 H Lymph % (Auto) 11.4 L [place] % (Auto) Eos % (Auto) 8.0 H Lymph # 1.0 L [place] # Eos # 0.7 H Seg Neutrophils % 73.9 H Seg Neuts % (Manual) Lymphocytes % (Manual) Eosinophils % (Manual) Seg Neutrophils # Lymphocytes # (Manual) Eosinophils # (Manual) PT INR D-Dimer POC ABG pH POC ABG pCO2 POC ABG pO2 ABG pO2 ABG HCO3 ABG Base Excess ABG Hemoglobin Oxyhemoglobin Sodium Potassium Chloride Carbon Dioxide BUN Creatinine Glucose POC Glucose 130 H 129 H Calcium Phosphorus Magnesium ALT Alkaline Phosphatase Total Creatine Kinase CK-MB (CK-2) Rel Index Troponin T Albumin LDL Cholesterol Direct PTH Intact Salicylates Acetaminophen Crossmatch 03/26/19 03/26/19 03/26/19 05:35 05:45 12:16 WBC RBC Hgb Hct MCH MCHC RDW Lymph % (Auto) [place] % (Auto) Eos % (Auto) Lymph # [place] # Eos # Seg Neutrophils % Seg Neuts % (Manual) Lymphocytes % (Manual) Eosinophils % (Manual) Seg Neutrophils # Lymphocytes # (Manual) Eosinophils # (Manual) PT INR D-Dimer POC ABG pH POC ABG pCO2 POC ABG pO2 ABG pO2 ABG HCO3 ABG Base Excess ABG Hemoglobin Oxyhemoglobin Sodium Potassium Chloride 94.9 L Carbon Dioxide 31 H BUN 44 H Creatinine 2.0 H Glucose POC Glucose 118 H 107 H Calcium Phosphorus Magnesium ALT Alkaline Phosphatase Total Creatine Kinase CK-MB (CK-2) Rel Index Troponin T Albumin LDL Cholesterol Direct PTH Intact Salicylates Acetaminophen Crossmatch 03/26/19 03/27/19 03/27/19 17:56 00:36 05:37 WBC RBC Hgb Hct MCH MCHC RDW Lymph % (Auto) [place] % (Auto) Eos % (Auto) Lymph # [place] # Eos # Seg Neutrophils % Seg Neuts % (Manual) Lymphocytes % (Manual) Eosinophils % (Manual) Seg Neutrophils # Lymphocytes # (Manual) Eosinophils # (Manual) PT INR D-Dimer POC ABG pH POC ABG pCO2 POC ABG pO2 ABG pO2 ABG HCO3 ABG Base Excess ABG Hemoglobin Oxyhemoglobin Sodium Potassium Chloride Carbon Dioxide BUN Creatinine Glucose POC Glucose 107 H 110 H 122 H Calcium Phosphorus Magnesium ALT Alkaline Phosphatase Total Creatine Kinase CK-MB (CK-2) Rel Index Troponin T Albumin LDL Cholesterol Direct PTH Intact Salicylates Acetaminophen Crossmatch 03/27/19 03/27/19 03/28/19 11:22 18:00 05:17 WBC RBC Hgb Hct MCH MCHC RDW Lymph % (Auto) [place] % (Auto) Eos % (Auto) Lymph # [place] # Eos # Seg Neutrophils % Seg Neuts % (Manual) Lymphocytes % (Manual) Eosinophils % (Manual) Seg Neutrophils # Lymphocytes # (Manual) Eosinophils # (Manual) PT INR D-Dimer POC ABG pH POC ABG pCO2 POC ABG pO2 ABG pO2 ABG HCO3 ABG Base Excess ABG Hemoglobin Oxyhemoglobin Sodium Potassium Chloride Carbon Dioxide BUN Creatinine Glucose POC Glucose 120 H 111 H 107 H Calcium Phosphorus Magnesium ALT Alkaline Phosphatase Total Creatine Kinase CK-MB (CK-2) Rel Index Troponin T Albumin LDL Cholesterol Direct PTH Intact Salicylates Acetaminophen Crossmatch 03/28/19 03/28/19 03/29/19 12:27 18:08 05:47 WBC RBC Hgb Hct MCH MCHC RDW Lymph % (Auto) [place] % (Auto) Eos % (Auto) Lymph # [place] # Eos # Seg Neutrophils % Seg Neuts % (Manual) Lymphocytes % (Manual) Eosinophils % (Manual) Seg Neutrophils # Lymphocytes # (Manual) Eosinophils # (Manual) PT INR D-Dimer POC ABG pH POC ABG pCO2 POC ABG pO2 ABG pO2 ABG HCO3 ABG Base Excess ABG Hemoglobin Oxyhemoglobin Sodium Potassium Chloride Carbon Dioxide BUN Creatinine Glucose POC Glucose 114 H 121 H 112 H Calcium Phosphorus Magnesium ALT Alkaline Phosphatase Total Creatine Kinase CK-MB (CK-2) Rel Index Troponin T Albumin LDL Cholesterol Direct PTH Intact Salicylates Acetaminophen Crossmatch 03/29/19 03/29/19 03/30/19 12:14 18:08 00:31 WBC RBC Hgb Hct MCH MCHC RDW Lymph % (Auto) [place] % (Auto) Eos % (Auto) Lymph # [place] # Eos # Seg Neutrophils % Seg Neuts % (Manual) Lymphocytes % (Manual) Eosinophils % (Manual) Seg Neutrophils # Lymphocytes # (Manual) Eosinophils # (Manual) PT INR D-Dimer POC ABG pH POC ABG pCO2 POC ABG pO2 ABG pO2 ABG HCO3 ABG Base Excess ABG Hemoglobin Oxyhemoglobin Sodium Potassium Chloride Carbon Dioxide BUN Creatinine Glucose POC Glucose 117 H 140 H 114 H Calcium Phosphorus Magnesium ALT Alkaline Phosphatase Total Creatine Kinase CK-MB (CK-2) Rel Index Troponin T Albumin LDL Cholesterol Direct PTH Intact Salicylates Acetaminophen Crossmatch 03/30/19 03/30/19 03/30/19 10:13 10:13 23:53 WBC RBC 2.81 L Hgb 7.7 L Hct 24.3 L MCH 27 L MCHC RDW 19.0 H Lymph % (Auto) 12.2 L [place] % (Auto) Eos % (Auto) 7.9 H Lymph # 1.0 L [place] # Eos # 0.6 H Seg Neutrophils % 72.3 H Seg Neuts % (Manual) Lymphocytes % (Manual) Eosinophils % (Manual) Seg Neutrophils # Lymphocytes # (Manual) Eosinophils # (Manual) PT INR D-Dimer POC ABG pH POC ABG pCO2 POC ABG pO2 ABG pO2 ABG HCO3 ABG Base Excess ABG Hemoglobin Oxyhemoglobin Sodium Potassium 5.1 H Chloride 96.5 L Carbon Dioxide BUN 73 H Creatinine 3.9 H D Glucose POC Glucose 114 H Calcium 10.3 H Phosphorus 6.30 H Magnesium 2.70 H ALT Alkaline Phosphatase 185 H Total Creatine Kinase CK-MB (CK-2) Rel Index Troponin T Albumin 2.6 L LDL Cholesterol Direct PTH Intact Salicylates Acetaminophen Crossmatch 03/31/19 03/31/19 03/31/19 05:45 10:26 10:26 WBC RBC 3.01 L Hgb 8.2 L Hct 26.4 L MCH 27 L MCHC 31 L RDW 20.3 H Lymph % (Auto) 13.3 L [place] % (Auto) Eos % (Auto) 7.2 H Lymph # 1.1 L [place] # Eos # 0.6 H Seg Neutrophils % 72.1 H Seg Neuts % (Manual) Lymphocytes % (Manual) Eosinophils % (Manual) Seg Neutrophils # Lymphocytes # (Manual) Eosinophils # (Manual) PT INR D-Dimer POC ABG pH POC ABG pCO2 POC ABG pO2 ABG pO2 ABG HCO3 ABG Base Excess ABG Hemoglobin Oxyhemoglobin Sodium Potassium Chloride 96.9 L Carbon Dioxide 33 H BUN 37 H Creatinine 2.4 H Glucose POC Glucose 108 H Calcium 10.3 H Phosphorus Magnesium ALT Alkaline Phosphatase Total Creatine Kinase CK-MB (CK-2) Rel Index Troponin T Albumin LDL Cholesterol Direct PTH Intact Salicylates Acetaminophen Crossmatch 03/31/19 04/01/19 04/01/19 12:38 05:48 12:06 WBC RBC Hgb Hct MCH MCHC RDW Lymph % (Auto) [place] % (Auto) Eos % (Auto) Lymph # [place] # Eos # Seg Neutrophils % Seg Neuts % (Manual) Lymphocytes % (Manual) Eosinophils % (Manual) Seg Neutrophils # Lymphocytes # (Manual) Eosinophils # (Manual) PT INR D-Dimer POC ABG pH POC ABG pCO2 POC ABG pO2 ABG pO2 ABG HCO3 ABG Base Excess ABG Hemoglobin Oxyhemoglobin Sodium Potassium Chloride Carbon Dioxide BUN Creatinine Glucose POC Glucose 108 H 114 H 111 H Calcium Phosphorus Magnesium ALT Alkaline Phosphatase Total Creatine Kinase CK-MB (CK-2) Rel Index Troponin T Albumin LDL Cholesterol Direct PTH Intact Salicylates Acetaminophen Crossmatch 04/01/19 04/02/19 04/04/19 18:24 00:36 23:55 WBC RBC Hgb Hct MCH MCHC RDW Lymph % (Auto) [place] % (Auto) Eos % (Auto) Lymph # [place] # Eos # Seg Neutrophils % Seg Neuts % (Manual) Lymphocytes % (Manual) Eosinophils % (Manual) Seg Neutrophils # Lymphocytes # (Manual) Eosinophils # (Manual) PT INR D-Dimer POC ABG pH POC ABG pCO2 POC ABG pO2 ABG pO2 ABG HCO3 ABG Base Excess ABG Hemoglobin Oxyhemoglobin Sodium Potassium Chloride Carbon Dioxide BUN Creatinine Glucose POC Glucose 113 H 117 H 109 H Calcium Phosphorus Magnesium ALT Alkaline Phosphatase Total Creatine Kinase CK-MB (CK-2) Rel Index Troponin T Albumin LDL Cholesterol Direct PTH Intact Salicylates Acetaminophen Crossmatch 04/06/19 04/06/19 04/06/19 00:11 06:02 23:30 WBC RBC Hgb Hct MCH MCHC RDW Lymph % (Auto) [place] % (Auto) Eos % (Auto) Lymph # [place] # Eos # Seg Neutrophils % Seg Neuts % (Manual) Lymphocytes % (Manual) Eosinophils % (Manual) Seg Neutrophils # Lymphocytes # (Manual) Eosinophils # (Manual) PT INR D-Dimer POC ABG pH POC ABG pCO2 POC ABG pO2 ABG pO2 ABG HCO3 ABG Base Excess ABG Hemoglobin Oxyhemoglobin Sodium Potassium Chloride Carbon Dioxide BUN Creatinine Glucose POC Glucose 116 H 112 H 112 H Calcium Phosphorus Magnesium ALT Alkaline Phosphatase Total Creatine Kinase CK-MB (CK-2) Rel Index Troponin T Albumin LDL Cholesterol Direct PTH Intact Salicylates Acetaminophen Crossmatch 04/08/19 04/08/19 04/08/19 02:23 06:19 13:01 WBC RBC Hgb Hct MCH MCHC RDW Lymph % (Auto) [place] % (Auto) Eos % (Auto) Lymph # [place] # Eos # Seg Neutrophils % Seg Neuts % (Manual) Lymphocytes % (Manual) Eosinophils % (Manual) Seg Neutrophils # Lymphocytes # (Manual) Eosinophils # (Manual) PT INR D-Dimer POC ABG pH POC ABG pCO2 POC ABG pO2 ABG pO2 ABG HCO3 ABG Base Excess ABG Hemoglobin Oxyhemoglobin Sodium Potassium Chloride Carbon Dioxide BUN Creatinine Glucose POC Glucose 144 H 126 H 118 H Calcium Phosphorus Magnesium ALT Alkaline Phosphatase Total Creatine Kinase CK-MB (CK-2) Rel Index Troponin T Albumin LDL Cholesterol Direct PTH Intact Salicylates Acetaminophen Crossmatch 04/08/19 04/09/19 04/10/19 23:28 05:52 06:34 WBC RBC Hgb Hct MCH MCHC RDW Lymph % (Auto) [place] % (Auto) Eos % (Auto) Lymph # [place] # Eos # Seg Neutrophils % Seg Neuts % (Manual) Lymphocytes % (Manual) Eosinophils % (Manual) Seg Neutrophils # Lymphocytes # (Manual) Eosinophils # (Manual) PT INR D-Dimer POC ABG pH POC ABG pCO2 POC ABG pO2 ABG pO2 ABG HCO3 ABG Base Excess ABG Hemoglobin Oxyhemoglobin Sodium Potassium Chloride Carbon Dioxide BUN Creatinine Glucose POC Glucose 119 H 116 H 114 H Calcium Phosphorus Magnesium ALT Alkaline Phosphatase Total Creatine Kinase CK-MB (CK-2) Rel Index Troponin T Albumin LDL Cholesterol Direct PTH Intact Salicylates Acetaminophen Crossmatch 04/10/19 04/10/19 04/11/19 12:34 18:59 00:36 WBC RBC Hgb Hct MCH MCHC RDW Lymph % (Auto) [place] % (Auto) Eos % (Auto) Lymph # [place] # Eos # Seg Neutrophils % Seg Neuts % (Manual) Lymphocytes % (Manual) Eosinophils % (Manual) Seg Neutrophils # Lymphocytes # (Manual) Eosinophils # (Manual) PT INR D-Dimer POC ABG pH POC ABG pCO2 POC ABG pO2 ABG pO2 ABG HCO3 ABG Base Excess ABG Hemoglobin Oxyhemoglobin Sodium Potassium Chloride Carbon Dioxide BUN Creatinine Glucose POC Glucose 112 H 109 H 124 H Calcium Phosphorus Magnesium ALT Alkaline Phosphatase Total Creatine Kinase CK-MB (CK-2) Rel Index Troponin T Albumin LDL Cholesterol Direct PTH Intact Salicylates Acetaminophen Crossmatch 04/11/19 04/11/19 04/12/19 08:01 17:25 02:18 WBC RBC Hgb Hct MCH MCHC RDW Lymph % (Auto) [place] % (Auto) Eos % (Auto) Lymph # [place] # Eos # Seg Neutrophils % Seg Neuts % (Manual) Lymphocytes % (Manual) Eosinophils % (Manual) Seg Neutrophils # Lymphocytes # (Manual) Eosinophils # (Manual) PT INR D-Dimer POC ABG pH POC ABG pCO2 POC ABG pO2 ABG pO2 ABG HCO3 ABG Base Excess ABG Hemoglobin Oxyhemoglobin Sodium Potassium Chloride Carbon Dioxide BUN Creatinine Glucose POC Glucose 118 H 106 H 125 H Calcium Phosphorus Magnesium ALT Alkaline Phosphatase Total Creatine Kinase CK-MB (CK-2) Rel Index Troponin T Albumin LDL Cholesterol Direct PTH Intact Salicylates Acetaminophen Crossmatch 04/12/19 04/12/19 04/12/19 06:24 12:22 17:13 WBC RBC Hgb Hct MCH MCHC RDW Lymph % (Auto) [place] % (Auto) Eos % (Auto) Lymph # [place] # Eos # Seg Neutrophils % Seg Neuts % (Manual) Lymphocytes % (Manual) Eosinophils % (Manual) Seg Neutrophils # Lymphocytes # (Manual) Eosinophils # (Manual) PT INR D-Dimer POC ABG pH POC ABG pCO2 POC ABG pO2 ABG pO2 ABG HCO3 ABG Base Excess ABG Hemoglobin Oxyhemoglobin Sodium Potassium Chloride Carbon Dioxide BUN Creatinine Glucose POC Glucose 128 H 114 H 110 H Calcium Phosphorus Magnesium ALT Alkaline Phosphatase Total Creatine Kinase CK-MB (CK-2) Rel Index Troponin T Albumin LDL Cholesterol Direct PTH Intact Salicylates Acetaminophen Crossmatch 04/13/19 04/13/19 04/13/19 06:59 07:31 07:31 WBC RBC 3.34 L Hgb 8.9 L Hct 28.6 L MCH 27 L MCHC 31 L RDW 19.6 H Lymph % (Auto) [place] % (Auto) Eos % (Auto) Lymph # [place] # Eos # Seg Neutrophils % Seg Neuts % (Manual) Lymphocytes % (Manual) Eosinophils % (Manual) Seg Neutrophils # Lymphocytes # (Manual) Eosinophils # (Manual) PT INR D-Dimer POC ABG pH POC ABG pCO2 POC ABG pO2 ABG pO2 ABG HCO3 ABG Base Excess ABG Hemoglobin Oxyhemoglobin Sodium Potassium Chloride 96.4 L Carbon Dioxide 33 H BUN 66 H Creatinine 4.5 H Glucose 103 H POC Glucose 107 H Calcium Phosphorus Magnesium ALT Alkaline Phosphatase Total Creatine Kinase CK-MB (CK-2) Rel Index Troponin T Albumin LDL Cholesterol Direct PTH Intact Salicylates Acetaminophen Crossmatch 04/13/19 04/14/19 04/14/19 23:43 05:50 13:07 WBC RBC Hgb Hct MCH MCHC RDW Lymph % (Auto) [place] % (Auto) Eos % (Auto) Lymph # [place] # Eos # Seg Neutrophils % Seg Neuts % (Manual) Lymphocytes % (Manual) Eosinophils % (Manual) Seg Neutrophils # Lymphocytes # (Manual) Eosinophils # (Manual) PT INR D-Dimer POC ABG pH POC ABG pCO2 POC ABG pO2 ABG pO2 ABG HCO3 ABG Base Excess ABG Hemoglobin Oxyhemoglobin Sodium Potassium Chloride Carbon Dioxide BUN Creatinine Glucose POC Glucose 119 H 112 H 112 H Calcium Phosphorus Magnesium ALT Alkaline Phosphatase Total Creatine Kinase CK-MB (CK-2) Rel Index Troponin T Albumin LDL Cholesterol Direct PTH Intact Salicylates Acetaminophen Crossmatch 04/14/19 04/15/19 04/15/19 18:35 01:18 05:17 WBC RBC Hgb Hct MCH MCHC RDW Lymph % (Auto) [place] % (Auto) Eos % (Auto) Lymph # [place] # Eos # Seg Neutrophils % Seg Neuts % (Manual) Lymphocytes % (Manual) Eosinophils % (Manual) Seg Neutrophils # Lymphocytes # (Manual) Eosinophils # (Manual) PT INR D-Dimer POC ABG pH POC ABG pCO2 POC ABG pO2 ABG pO2 ABG HCO3 ABG Base Excess ABG Hemoglobin Oxyhemoglobin Sodium Potassium Chloride Carbon Dioxide BUN Creatinine Glucose POC Glucose 114 H 114 H 114 H Calcium Phosphorus Magnesium ALT Alkaline Phosphatase Total Creatine Kinase CK-MB (CK-2) Rel Index Troponin T Albumin LDL Cholesterol Direct PTH Intact Salicylates Acetaminophen Crossmatch 09/04/15/19 04/16/19 11:50 23:39 05:41 WBC RBC Hgb Hct MCH MCHC RDW Lymph % (Auto) [place] % (Auto) Eos % (Auto) Lymph # [place] # Eos # Seg Neutrophils % Seg Neuts % (Manual) Lymphocytes % (Manual) Eosinophils % (Manual) Seg Neutrophils # Lymphocytes # (Manual) Eosinophils # (Manual) PT INR D-Dimer POC ABG pH POC ABG pCO2 POC ABG pO2 ABG pO2 ABG HCO3 ABG Base Excess ABG Hemoglobin Oxyhemoglobin Sodium Potassium Chloride Carbon Dioxide BUN Creatinine Glucose POC Glucose 109 H 115 H 125 H Calcium Phosphorus Magnesium ALT Alkaline Phosphatase Total Creatine Kinase CK-MB (CK-2) Rel Index Troponin T Albumin LDL Cholesterol Direct PTH Intact Salicylates Acetaminophen Crossmatch 04/16/19 04/17/19 04/17/19 12:53 01:00 12:38 WBC RBC Hgb Hct MCH MCHC RDW Lymph % (Auto) [place] % (Auto) Eos % (Auto) Lymph # [place] # Eos # Seg Neutrophils % Seg Neuts % (Manual) Lymphocytes % (Manual) Eosinophils % (Manual) Seg Neutrophils # Lymphocytes # (Manual) Eosinophils # (Manual) PT INR D-Dimer POC ABG pH POC ABG pCO2 POC ABG pO2 ABG pO2 ABG HCO3 ABG Base Excess ABG Hemoglobin Oxyhemoglobin Sodium Potassium Chloride Carbon Dioxide BUN Creatinine Glucose POC Glucose 121 H 127 H 159 H Calcium Phosphorus Magnesium ALT Alkaline Phosphatase Total Creatine Kinase CK-MB (CK-2) Rel Index Troponin T Albumin LDL Cholesterol Direct PTH Intact Salicylates Acetaminophen Crossmatch 04/17/19 04/17/19 04/18/19 18:27 23:36 07:19 WBC RBC 3.49 L Hgb 9.0 L Hct 29.9 L MCH 26 L MCHC 30 L RDW 20.0 H Lymph % (Auto) [place] % (Auto) Eos % (Auto) Lymph # [place] # Eos # Seg Neutrophils % Seg Neuts % (Manual) Lymphocytes % (Manual) Eosinophils % (Manual) Seg Neutrophils # Lymphocytes # (Manual) Eosinophils # (Manual) PT INR D-Dimer POC ABG pH POC ABG pCO2 POC ABG pO2 ABG pO2 ABG HCO3 ABG Base Excess ABG Hemoglobin Oxyhemoglobin Sodium Potassium Chloride Carbon Dioxide BUN Creatinine Glucose POC Glucose 109 H 134 H Calcium Phosphorus Magnesium ALT Alkaline Phosphatase Total Creatine Kinase CK-MB (CK-2) Rel Index Troponin T Albumin LDL Cholesterol Direct PTH Intact Salicylates Acetaminophen Crossmatch 04/18/19 04/18/19 04/18/19 07:19 12:16 17:09 WBC RBC Hgb Hct MCH MCHC RDW Lymph % (Auto) [place] % (Auto) Eos % (Auto) Lymph # [place] # Eos # Seg Neutrophils % Seg Neuts % (Manual) Lymphocytes % (Manual) Eosinophils % (Manual) Seg Neutrophils # Lymphocytes # (Manual) Eosinophils # (Manual) PT INR D-Dimer POC ABG pH POC ABG pCO2 POC ABG pO2 ABG pO2 ABG HCO3 ABG Base Excess ABG Hemoglobin Oxyhemoglobin Sodium Potassium Chloride Carbon Dioxide BUN 41 H Creatinine 2.9 H Glucose 122 H POC Glucose 125 H 131 H Calcium Phosphorus Magnesium ALT Alkaline Phosphatase Total Creatine Kinase CK-MB (CK-2) Rel Index Troponin T Albumin LDL Cholesterol Direct PTH Intact Salicylates Acetaminophen Crossmatch 04/18/19 04/19/19 04/19/19 23:57 05:55 11:35 WBC RBC Hgb Hct MCH MCHC RDW Lymph % (Auto) [place] % (Auto) Eos % (Auto) Lymph # [place] # Eos # Seg Neutrophils % Seg Neuts % (Manual) Lymphocytes % (Manual) Eosinophils % (Manual) Seg Neutrophils # Lymphocytes # (Manual) Eosinophils # (Manual) PT INR D-Dimer POC ABG pH POC ABG pCO2 POC ABG pO2 ABG pO2 ABG HCO3 ABG Base Excess ABG Hemoglobin Oxyhemoglobin Sodium Potassium Chloride Carbon Dioxide BUN Creatinine Glucose POC Glucose 159 H 144 H 177 H Calcium Phosphorus Magnesium ALT Alkaline Phosphatase Total Creatine Kinase CK-MB (CK-2) Rel Index Troponin T Albumin LDL Cholesterol Direct PTH Intact Salicylates Acetaminophen Crossmatch 04/19/19 04/20/19 04/20/19 16:36 02:05 06:28 WBC RBC Hgb Hct MCH MCHC RDW Lymph % (Auto) [place] % (Auto) Eos % (Auto) Lymph # [place] # Eos # Seg Neutrophils % Seg Neuts % (Manual) Lymphocytes % (Manual) Eosinophils % (Manual) Seg Neutrophils # Lymphocytes # (Manual) Eosinophils # (Manual) PT INR D-Dimer POC ABG pH POC ABG pCO2 POC ABG pO2 ABG pO2 ABG HCO3 ABG Base Excess ABG Hemoglobin Oxyhemoglobin Sodium Potassium Chloride Carbon Dioxide BUN Creatinine Glucose POC Glucose 134 H 142 H 132 H Calcium Phosphorus Magnesium ALT Alkaline Phosphatase Total Creatine Kinase CK-MB (CK-2) Rel Index Troponin T Albumin LDL Cholesterol Direct PTH Intact Salicylates Acetaminophen Crossmatch 04/20/19 04/20/19 04/21/19 12:37 23:34 05:59 WBC RBC Hgb Hct MCH MCHC RDW Lymph % (Auto) [place] % (Auto) Eos % (Auto) Lymph # [place] # Eos # Seg Neutrophils % Seg Neuts % (Manual) Lymphocytes % (Manual) Eosinophils % (Manual) Seg Neutrophils # Lymphocytes # (Manual) Eosinophils # (Manual) PT INR D-Dimer POC ABG pH POC ABG pCO2 POC ABG pO2 ABG pO2 ABG HCO3 ABG Base Excess ABG Hemoglobin Oxyhemoglobin Sodium Potassium Chloride Carbon Dioxide BUN Creatinine Glucose POC Glucose 163 H 166 H 140 H Calcium Phosphorus Magnesium ALT Alkaline Phosphatase Total Creatine Kinase CK-MB (CK-2) Rel Index Troponin T Albumin LDL Cholesterol Direct PTH Intact Salicylates Acetaminophen Crossmatch 04/21/19 04/21/19 04/21/19 12:07 17:22 23:43 WBC RBC Hgb Hct MCH MCHC RDW Lymph % (Auto) [place] % (Auto) Eos % (Auto) Lymph # [place] # Eos # Seg Neutrophils % Seg Neuts % (Manual) Lymphocytes % (Manual) Eosinophils % (Manual) Seg Neutrophils # Lymphocytes # (Manual) Eosinophils # (Manual) PT INR D-Dimer POC ABG pH POC ABG pCO2 POC ABG pO2 ABG pO2 ABG HCO3 ABG Base Excess ABG Hemoglobin Oxyhemoglobin Sodium Potassium Chloride Carbon Dioxide BUN Creatinine Glucose POC Glucose 135 H 141 H 138 H Calcium Phosphorus Magnesium ALT Alkaline Phosphatase Total Creatine Kinase CK-MB (CK-2) Rel Index Troponin T Albumin LDL Cholesterol Direct PTH Intact Salicylates Acetaminophen Crossmatch 04/22/19 04/22/19 04/22/19 05:12 18:24 23:49 WBC RBC Hgb Hct MCH MCHC RDW Lymph % (Auto) [place] % (Auto) Eos % (Auto) Lymph # [place] # Eos # Seg Neutrophils % Seg Neuts % (Manual) Lymphocytes % (Manual) Eosinophils % (Manual) Seg Neutrophils # Lymphocytes # (Manual) Eosinophils # (Manual) PT INR D-Dimer POC ABG pH POC ABG pCO2 POC ABG pO2 ABG pO2 ABG HCO3 ABG Base Excess ABG Hemoglobin Oxyhemoglobin Sodium Potassium Chloride Carbon Dioxide BUN Creatinine Glucose POC Glucose 141 H 137 H 142 H Calcium Phosphorus Magnesium ALT Alkaline Phosphatase Total Creatine Kinase CK-MB (CK-2) Rel Index Troponin T Albumin LDL Cholesterol Direct PTH Intact Salicylates Acetaminophen Crossmatch 04/23/19 04/23/19 04/23/19 05:53 08:13 11:58 WBC RBC Hgb Hct MCH MCHC RDW Lymph % (Auto) [place] % (Auto) Eos % (Auto) Lymph # [place] # Eos # Seg Neutrophils % Seg Neuts % (Manual) Lymphocytes % (Manual) Eosinophils % (Manual) Seg Neutrophils # Lymphocytes # (Manual) Eosinophils # (Manual) PT INR D-Dimer POC ABG pH POC ABG pCO2 POC ABG pO2 ABG pO2 ABG HCO3 ABG Base Excess ABG Hemoglobin Oxyhemoglobin Sodium Potassium Chloride Carbon Dioxide BUN Creatinine Glucose POC Glucose 132 H 154 H 165 H Calcium Phosphorus Magnesium ALT Alkaline Phosphatase Total Creatine Kinase CK-MB (CK-2) Rel Index Troponin T Albumin LDL Cholesterol Direct PTH Intact Salicylates Acetaminophen Crossmatch 04/23/19 16:28 WBC RBC Hgb Hct MCH MCHC RDW Lymph % (Auto) [place] % (Auto) Eos % (Auto) Lymph # [place] # Eos # Seg Neutrophils % Seg Neuts % (Manual) Lymphocytes % (Manual) Eosinophils % (Manual) Seg Neutrophils # Lymphocytes # (Manual) Eosinophils # (Manual) PT INR D-Dimer POC ABG pH POC ABG pCO2 POC ABG pO2 ABG pO2 ABG HCO3 ABG Base Excess ABG Hemoglobin Oxyhemoglobin Sodium Potassium Chloride Carbon Dioxide BUN Creatinine Glucose POC Glucose 136 H Calcium Phosphorus Magnesium ALT Alkaline Phosphatase Total Creatine Kinase CK-MB (CK-2) Rel Index Troponin T Albumin LDL Cholesterol Direct PTH Intact Salicylates Acetaminophen Crossmatch
[2019-04-24] MEDS: INSULIN REGULAR, HUMAN 100 UNITS/1 ML SUB-Q SCH ×4 (01:44→19:34)
[2019-04-24] MEDS: IPRATROPIUM/ALBUTEROL SULFATE 3 ML AMPUL.NEB IH SCH ×3 (08:07→20:46)
[2019-04-24] MEDS: SERTRALINE 100 MG TAB PO SCH (09:09)
[2019-04-24] MEDS: risperiDONE 1 MG TAB PO SCH (09:09)
[2019-04-24] MEDS: SODIUM HYPOCHLORITE, DAKIN'S 1/2 STRENGTH (0.25%) 473 ML TOPICAL SOLN TP SCH ×2 (09:09→21:38)
[2019-04-24] MEDS: FAMOTIDINE 20 MG TAB PO SCH (09:09)
--- NOTE | 2019-04-24 10:44 | Progress Note ---
Assessment and Plan Assessment and plan: Acute respiratory failure on mechanical ventilator >96 hrs Trach placed on 03/03/19 Pulm consult appreciated weaning trial Aspiration precautions Continue T-piece Finished therapy for Acinetobacter Acute pulmonary edema, fluid overload on CXR repeat xray intermittently Dialysis Necrotizing Unstagable sacral decubitus ulcer with osteomyelitis Wound care, Dilated CMP Cardiomyiopathy EF 35-40% Continue diuresis PPM/ICD Acute encephalopathy, probably metabolic or toxic Continues on Mechanical ventilator. ESRD on hemodialysis nephrology following Vascular eval. done re: LUE AV graft, see note Waiting for outpatient hemodialysis arrangements Permanent atrial fibrillation and flutter Not on anticoagulation because of anemia thrombocytopenia Diabetes mellitus type 2 Fingerstick Q4h Schizophrenia continue home meds Legally blind supportive care hypertension- fair Monitor BP Hypokalemia resolved Dysphagia s/p PEG tube Severe malnutrition/hypoalbuminemia with FTT: 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, community education specialist following PEG placed on 01/02/19 Decubitus ulcer s/p colostomy wound care History of sacral osteomyelitis and LE ulcers Completed Antibiotics Place on contact isolation for ESBL Klebsiella pneumonia on wound culture 01/02/19 Peripheral neuropathy: Continue gabapentin Anemia of chronic disease -s/p total of 8 units PRBC, follow cbc- no occult GI bleed noted. -Pt is s/p x1 DDVAP DVT prophylaxis Lovenox DNR poor prognosis Disposition: Awaiting on placement History Interval history: Patient is 63-year-old -[place]in[place] male patient from [facility] with multiple co-morbidities including blindness, CVA, CHF, PPM/ICD, loop recorder since 2012 that is MRI compatible, IDDM type 2, sepsis left foot ulcer, afib, ESRD with complications on HD TTS, hypertension, AOCD and GERD who presented to the ED with hypotensive after intubation in the emergency room. diagnosed with fluid overload, pleural effusion. Patient has had recurrent admission in the hospital for similar reason and was recently discharged from the hospital following treatment of Severe Sepsis due to Necrotizing Unstagable sacral decubitus ulcer with ostemomylitis, has received multiple courses of broad spectrum abx. Acute hypoxic respiratory failure, status post intubation and ventilatory support, now off vent, on T-piece Hospitalist Physical - Constitutional Vitals: Temp Pulse Resp BP Pulse Ox 98.4 F 101 H 20 144/55 97 04/24/19 04:18 04/24/19 08:07 04/24/19 08:07 04/24/19 04:18 04/24/19 08:07 General appearance: Present: no acute distress, well-nourished, other (T peace) - EENT Eyes: Present: PERRL, EOM intact ENT: hearing intact, clear oral mucosa, dentition normal - Neck Neck: Present: supple, normal ROM - Respiratory Respiratory effort: normal Respiratory: bilateral: CTA - Cardiovascular Rhythm: regular Heart Sounds: Present: S1 & S2. Absent: gallop, rub - Extremities Extremities: no ischemia, No edema, Full ROM - Abdominal General gastrointestinal: soft, non-tender, non-distended, normal bowel sounds - Integumentary Integumentary: Present: clear, warm, dry - Neurologic Neurologic: CNII-XII intact, moves all extremities Results - Labs CBC & Chem 7: 04/18/19 07:19 04/18/19 07:19 Labs: Laboratory Last Values WBC 9.6 K/mm3 (4.5-11.0) 04/18/19 07:19 RBC 3.49 M/mm3 (3.65-5.03) L 04/18/19 07:19 Hgb 9.0 gm/dl (11.8-15.2) L 04/18/19 07:19 Hct 29.9 % (35.5-45.6) L 04/18/19 07:19 MCV 86 fl (84-94) 04/18/19 07:19 MCH 26 pg (28-32) L 04/18/19 07:19 MCHC 30 % (32-34) L 04/18/19 07:19 RDW 20.0 % (13.2-15.2) H 04/18/19 07:19 Plt Count 286 K/mm3 (140-440) 04/18/19 07:19 Lymph % (Auto) 13.3 % (13.4-35.0) L 03/31/19 10:26 [place] % (Auto) 6.5 % (0.0-7.3) 03/31/19 10:26 Eos % (Auto) 7.2 % (0.0-4.3) H 03/31/19 10:26 Baso % (Auto) 0.9 % (0.0-1.8) 03/31/19 10:26 Lymph # 1.1 K/mm3 (1.2-5.4) L 03/31/19 10:26 [place] # 0.5 K/mm3 (0.0-0.8) 03/31/19 10: Eos # 0.6 K/mm3 (0.0-0.4) H 03/31/19 10:26 Baso # 0.1 K/mm3 (0.0-0.1) 03/31/19 10:26 Add Manual Diff Complete 03/21/19 06:30 Total Counted 100 03/21/19 06:30 Seg Neutrophils % 72.1 % (40.0-70.0) H 03/31/19 10:26 Seg Neuts % (Manual) 81.0 % (40.0-70.0) H 03/21/19 06:30 Band Neutrophils % 0 % 03/21/19 06:30 Lymphocytes % (Manual) 8.0 % (13.4-35.0) L 03/21/19 06:30 Reactive Lymphs % (Man) 0 % 03/21/19 06:30 Monocytes % (Manual) 1.0 % (0.0-7.3) 03/21/19 06:30 Eosinophils % (Manual) 8.0 % (0.0-4.3) H 03/21/19 06:30 Basophils % (Manual) 1.0 % (0.0-1.8) 03/21/19 06:30 Metamyelocytes % 1.0 % 03/21/19 06:30 Myelocytes % 0 % 03/21/19 06:30 Promyelocytes % 0 % 03/21/19 06:30 Blast Cells % 0 % 03/21/19 06:30 Nucleated RBC % Not Reportable 03/21/19 06:30 Seg Neutrophils # 6.0 K/mm3 (1.8-7.7) 03/31/19 10:26 Seg Neutrophils # Man 6.7 K/mm3 (1.8-7.7) 03/21/19 06:30 Band Neutrophils # 0.0 K/mm3 03/21/19 06:30 Lymphocytes # (Manual) 0.7 K/mm3 (1.2-5.4) L 03/21/19 06:30 Abs React Lymphs (Man) 0.0 K/mm3 03/21/19 06:30 Monocytes # (Manual) 0.1 K/mm3 (0.0-0.8) 03/21/19 06:30 Eosinophils # (Manual) 0.7 K/mm3 (0.0-0.4) H 03/21/19 06:30 Basophils # (Manual) 0.1 K/mm3 (0.0-0.1) 03/21/19 06:30 Metamyelocytes # 0.1 K/mm3 03/21/19 06:30 Myelocytes # 0.0 K/mm3 03/21/19 06:30 Promyelocytes # 0.0 K/mm3 03/21/19 06:30 Blast Cells # 0.0 K/mm3 03/21/19 06:30 WBC Morphology Not Reportable 03/21/19 06:30 Hypersegmented Neuts Not Reportable 03/21/19 06:30 Hyposegmented Neuts Not Reportable 03/21/19 06:30 Hypogranular Neuts Not Reportable 03/21/19 06:30 Smudge Cells Not Reportable 03/21/19 06:30 Toxic Granulation Not Reportable 03/21/19 06:30 Toxic Vacuolation Not Reportable 03/21/19 06:30 Dohle Bodies Not Reportable 03/21/19 06:30 Pelger-Huet Anomaly Not Reportable 03/21/19 06:30 Tramaine Rods Not Reportable 03/21/19 06:30 Platelet Estimate Consistent w auto 03/21/19 06:30 Clumped Platelets Not Reportable 03/21/19 06:30 Plt Clumps, EDTA Not Reportable 03/21/19 06:30 Large Platelets Not Reportable 03/21/19 06:30 Giant Platelets Not Reportable 03/21/19 06:30 Platelet Satelliting Not Reportable 03/21/19 06:30 Plt Morphology Comment Not Reportable 03/21/19 06:30 RBC Morphology Not Reportable 03/21/19 06:30 Dimorphic RBCs Not Reportable 03/21/19 06:30 Polychromasia Not Reportable 03/21/19 06:30 Hypochromasia Few 03/21/19 06:30 Poikilocytosis Few 03/21/19 06:30 Anisocytosis Few 03/21/19 06:30 Microcytosis Not Reportable 03/21/19 06:30 Macrocytosis Not Reportable 03/21/19 06:30 Spherocytes Not Reportable 03/21/19 06:30 Pappenheimer Bodies Not Reportable 03/21/19 06:30 Sickle Cells Not Reportable 03/21/19 06:30 Target Cells 1+ 03/21/19 06:30 Tear Drop Cells Not Reportable 03/21/19 06:30 Ovalocytes Few 03/21/19 06:30 Helmet Cells Not Reportable 03/21/19 06:30 Zhou-Hurricane Bodies Not Reportable 03/21/19 06:30 [place] Rings Not Reportable 03/21/19 06:30 [place] Cells Not Reportable 03/21/19 06:30 Bite Cells Not Reportable 03/21/19 06:30 Crenated Cell Not Reportable 03/21/19 06:30 Elliptocytes Not Reportable 03/21/19 06:30 Acanthocytes (Spur) Not Reportable 03/21/19 06:30 Rouleaux Not Reportable 03/21/19 06:30 Hemoglobin C Crystals Not Reportable 03/21/19 06:30 Schistocytes Not Reportable 03/21/19 06:30 Malaria parasites Not Reportable 03/21/19 06:30 Jose Juan Bodies Not Reportable 03/21/19 06:30 Hem Pathologist Commnt No 03/21/19 06:30 PT 16.3 Sec. (12.2-14.9) H 03/01/19 09:39 INR 1.35 (0.87-1.13) H 03/01/19 09:39 APTT 33.7 Sec. (24.2-36.6) 02/21/19 18:30 D-Dimer 2987.82 ng/mlDDU (0-234) H 02/22/19 05:54 POC ABG pH 7.510 (7.35-7.45) H 03/18/19 06:38 ABG pH 7.424 pH Units (7.350-7.450) 03/19/19 04:23 POC ABG pCO2 38.9 (35-45) 03/18/19 06:38 ABG pCO2 48.0 mm Hg 03/19/19 04:23 POC ABG pO2 164 (80-105) H 03/18/19 06:38 ABG pO2 78.3 mm Hg (80.0-90.0) L 03/19/19 04:23 POC ABG HCO3 31.0 (22-26 mml/L) 03/18/19 06:38 ABG HCO3 30.7 mmol/L (20.0-26.0) H 03/19/19 04:23 POC ABG Total CO2 32 (23-27mmol/L) 03/18/19 06:38 POC ABG O2 Sat 100 03/18/19 06:38 ABG O2 Saturation 97.0 % (95.0-99.0) 03/19/19 04:23 ABG O2 Content 7.9 (0.0-44) 03/19/19 04:23 POC ABG Base Excess 8 ((-2) - (+3)mmol/L) 03/18/19 06:38 ABG Base Excess 5.8 mmol/L (-2.0-3.0) H 03/19/19 04:23 ABG Hemoglobin 5.8 gm/dl (14.0-18.0) L 03/19/19 04:23 ABG Carboxyhemoglobin 2.0 % (0.0-5.0) 03/19/19 04:23 ABG Methemoglobin 0.4 % (0.0-1.5) 03/19/19 04:23 Oxyhemoglobin 94.6 % (95.0-99.0) L 03/19/19 04:23 FiO2 35 % 03/19/19 04:23 Sodium 145 mmol/L (137-145) 04/18/19 07:19 Potassium 3.6 mmol/L (3.6-5.0) 04/18/19 07:19 Chloride 99.1 mmol/L (98-107) 04/18/19 07:19 Carbon Dioxide 30 mmol/L (22-30) 04/18/19 07:19 Anion Gap 20 mmol/L 04/18/19 07:19 BUN 41 mg/dL (9-20) H 04/18/19 07:19 Creatinine 2.9 mg/dL (0.8-1.5) H 04/18/19 07:19 Estimated GFR 27 ml/min 04/18/19 07:19 BUN/Creatinine Ratio 14 % 04/18/19 07:19 Glucose 122 mg/dL (75-100) H 04/18/19 07:19 POC Glucose 141 (70-105) H 04/24/19 07:00 Lactic Acid 1.00 mmol/L (0.7-2.0) 02/21/19 20:58 Calcium 10.1 mg/dL (8.4-10.2) 04/18/19 07:19 Phosphorus 4.30 mg/dL (2.5-4.5) D 03/31/19 10:26 Magnesium 2.70 mg/dL (1.7-2.3) H 03/30/19 10:13 Total Bilirubin 0.20 mg/dL (0.1-1.2) 03/30/19 10:13 AST 16 units/L (5-40) 03/30/19 10:13 ALT 11 units/L (7-56) 03/30/19 10:13 Alkaline Phosphatase 185 units/L (35-129) H 03/30/19 10:13 Ammonia 28.0 umol/L (25-60) 02/21/19 20:04 Total Creatine Kinase 64 units/L (55-170) 02/22/19 03:42 CK-MB (CK-2) 3.7 ng/mL (0.0-4.0) 02/22/19 03:42 CK-MB (CK-2) Rel Index 5.7 (0-4) H 02/22/19 03:42 Troponin T 0.193 ng/mL (0.00-0.029) H* 02/22/19 03:42 Total Protein 6.9 g/dL (6.3-8.2) 03/30/19 10:13 Albumin 2.6 g/dL (3.9-5) L 03/30/19 10:13 Albumin/Globulin Ratio 0.6 % 03/30/19 10:13 Triglycerides 51 mg/dL (2-149) 02/21/19 18:30 Cholesterol 82 mg/dL (50-199) 02/21/19 18:30 LDL Cholesterol Direct 36 mg/dL (50-130) L 02/21/19 18:30 HDL Cholesterol 40 mg/dL (40-59) 02/21/19 18:30 Cholesterol/HDL Ratio 2.05 % 02/21/19 18:30 TSH 2.760 mlU/mL (0.270-4.200) 02/21/19 20:04 PTH Intact 267.6 pg/mL (15-65) H 03/02/19 05:15 Salicylates < 0.3 mg/dL (2.8-20.0) L 02/21/19 20:04 Acetaminophen < 5.0 ug/mL (10.0-30.0) L 02/21/19 20:04 Hepatitis A IgM Ab Non-reactive (NonReactive) 03/31/19 22:56 Hep Bs Antigen Non-reactive (Negative) 03/31/19 22:56 Hep B Core IgM Ab Non-reactive (NonReactive) 03/31/19 22:56 Hepatitis C Antibody Non-reactive (NonReactive) 03/31/19 22:56 Blood Type O POSITIVE 03/22/19 08:48 Antibody Screen Negative 03/22/19 08:48 Crossmatch See Detail 03/22/19 08:48 Active Medications - Current Medications Current Medications: Generic Name Dose Route Start Last Admin Trade Name Freq PRN Reason Stop Dose Admin Albuterol/Ipratropium 1 ampul 02/24/19 20:00 04/24/19 08:07 Duoneb *Not For Prn Use* IH 1 ampul TIDRT SANCHEZ Administration Lipase/Protease/Amylase 1 each 04/10/19 15:16 Pancreaze 10,500 Unit FEEDTUBE PRN PRN For Clogged Feeding Tube Epoetin Solitario 20,000 unit 03/24/19 11:17 04/22/19 14:55 Procrit IV 20,000 unit UMA PRN Administration hemodialysis Famotidine 20 mg 02/23/19 10:00 04/24/19 09:09 Pepcid PO 20 mg DAILY SANCHEZ Administration Sodium Chloride 100 mls @ 999 mls/hr 02/26/19 09:00 Nacl 0.9% IV UMA PRN Hypotension Insulin Human Regular 0 units 02/26/19 12:00 04/24/19 06:55 Humulin R SUB-Q Not Given Q6HR [facility] Protocol Metoprolol Tartrate 2.5 mg 02/28/19 12:06 03/15/19 05:15 Lopressor IV 2.5 mg Q4HR PRN Administration Tachycardia Risperidone 1 mg 02/25/19 13:00 04/24/19 09:09 Risperdal PO 1 mg DAILY SANCHEZ Administration Sertraline HCl 100 mg 02/25/19 13:00 04/24/19 09:09 Zoloft PO 100 mg DAILY SANCHEZ Administration Simple Syrup 15 ml 04/10/19 15:16 Simple Syrup FEEDTUBE PRN PRN Hypoglycemia Simple Syrup 30 ml 04/10/19 15:16 Simple Syrup FEEDTUBE PRN PRN Hypoglycemia Sodium Bicarbonate 325 mg 04/10/19 15:16 Sodium Bicarbonate FEEDTUBE PRN PRN For Clogged Feeding Tube Sodium Hypochlorite 1 applic 04/01/19 13:00 04/24/19 09:09 Dakin's Half Strength TP 1 applicatio BID SANCHEZ Administration Nutrition/Malnutrition Assess - Dietary Evaluation Nutrition/Malnutrition Findings: Nutrition Notes Start: 02/22/19 12:51 Freq: Status: Active Protocol: Document 04/17/19 09:45 KS (Rec: 04/17/19 11:00 KS [id number]) Co-Sign 04/17/19 09:45 LM Nutrition Notes Initial or Follow up Reassessment Current Diagnosis Diabetes,Hypertension Other Pertinent Diagnosis Sacral PU, ESRD on HD (T/Thurs /Sat), Schizophrenia,Blind in L eye,S/P trach Current Diet Nepro at 50 ml/hr w/Abhilash BID Labs/Tests POC Glu - 127 Pertinent Medications Reviewed Height 5 ft 10 in Weight 78.2 kg [place] Body Weight (kg) 75.45 BMI 24.7 Subjective/Other Information Observed Nepro infusing at 50 ml/hr. RN states Abhilash not being given to pt. RN informed of reason for Abhilash. Percent of energy/protein needs met: 92%/100% Burn Absent Trauma Absent Minimum of two criteria No #2 Nutrition Diagnosis Increased nutrient needs ( specify in comment below) Diagnosis Progress(for reassessment Continues documentation) #1 Nutrition Diagnosis Inadequate oral intake Diagnosis Progress(for reassessment Continues documentation) Is patient on ventilator? No Is Patient Ambulatory and/or Out of Bed No REE-([facility]-confined to bed) 1898.108 Kcal/Kg value to use for calculation 30 Approximate Energy Requirements Using 2346 kcal/Kg Calculation Used for Recommendations Kcal/kg Additional Notes Protein Needs: 90-112g (1.2-1. 5g/kg) Fluid Needs: 1-1.5 L/day Nutrition Intervention Change Diet Order: Continue TF Nutrition Support: Nepro with Carbsteady 1.8 at 50 ml/hr Flush 200 ml q4hr Kcal 2,160 Protein (gm) 97 Fluid (mL) 872 Add Supplement/Snack (indicate name/kcal Abhilash BID /protein ) Provides kCal: 190 Provides Protein (gm) 5 Goal #1 TF tolerance Goal #2 Continue to meet at least 75% of calorie and protein needs via TF Anticipated Discharge Needs: TF Follow-Up By: 04/24/19 Additional Comments Follow for TF tolerance, Pt receiving Abhilash
--- NOTE | 2019-04-24 11:40 | Progress Note ---
Assessment and Plan 63 y/o male with multiple medical issues admitted with altered mental status, acute respiratory failure requiring mechanical ventilation 1. Change to Trach collar 2. Speech to attempt PMV today. Will document if tolerates. 3. HD per renal 4. CM working on placement Subjective Date of service: 04/24/19 Principal diagnosis: Respiratory failure, acute on chronic systolic HF, ESRD Interval history: No acute events. has a #6 cuffless trach in. Spoke with speech therapy and they will try PMV today. Spoke with CM as well regarding further plans Objective Vital Signs - 12hr 04/24/19 04/24/19 04/24/19 00:01 04:12 04:18 Temperature 98.3 F 98.4 F Pulse Rate 101 H 102 H Pulse Rate [ Anterior Bilateral Throughout] Respiratory 18 18 Rate Respiratory Rate [Anterior Bilateral Throughout] Blood Pressure 135/55 144/55 O2 Sat by Pulse 98 96 Oximetry O2 Sat by Pulse 98 Oximetry [ Assessment] 04/24/19 08:07 Temperature Pulse Rate Pulse Rate [ 101 H Anterior Bilateral Throughout] Respiratory Rate Respiratory 20 Rate [Anterior Bilateral Throughout] Blood Pressure O2 Sat by Pulse 97 Oximetry O2 Sat by Pulse 97 Oximetry [ Assessment] Constitutional: no acute distress, alert Eyes: non-icteric ENT: oropharynx moist Neck: supple Effort: normal Ascultation: Bilateral: diminished breath sounds, other (coarse BS bilaterally) Percussion: Bilateral: not dull Cardiovascular: regular rate and rhythm (no mrg) Gastrointestinal: normoactive bowel sounds, soft, non-tender, non-distended, other (ostomy in place, brown stool) Extremities: no cyanosis, no edema, pink and warm Neurologic: other (mild weakness LUE, o/w nonfocal) Psychiatric: other (unable to assess) CBC and BMP: 04/18/19 07:19 04/18/19 07:19 ABG, PT/INR, D-dimer: ABG POC ABG pH 7.510 (7.35-7.45) H 03/18/19 06:38 ABG pH 7.424 pH Units (7.350-7.450) 03/19/19 04:23 POC ABG pCO2 38.9 (35-45) 03/18/19 06:38 ABG pCO2 48.0 mm Hg 03/19/19 04:23 POC ABG pO2 164 (80-105) H 03/18/19 06:38 ABG pO2 78.3 mm Hg (80.0-90.0) L 03/19/19 04:23 POC ABG HCO3 31.0 (22-26 mml/L) 03/18/19 06:38 POC ABG Total CO2 32 (23-27mmol/L) 03/18/19 06:38 POC ABG O2 Sat 100 03/18/19 06:38 ABG O2 Saturation 97.0 % (95.0-99.0) 03/19/19 04:23 PT/INR, D-dimer PT 16.3 Sec. (12.2-14.9) H 03/01/19 09:39 INR 1.35 (0.87-1.13) H 03/01/19 09:39 D-Dimer 2987.82 ng/mlDDU (0-234) H 02/22/19 05:54 Abnormal lab findings: Abnormal Labs 02/21/19 02/21/19 02/21/19 18:30 18:30 18:30 WBC RBC 3.26 L Hgb 8.8 L Hct 29.0 L MCH 27 L MCHC 30 L RDW 19.1 H Lymph % (Auto) 6.1 L [place] % (Auto) Eos % (Auto) Lymph # 0.4 L [place] # Eos # Seg Neutrophils % 86.2 H Seg Neuts % (Manual) Lymphocytes % (Manual) Eosinophils % (Manual) Seg Neutrophils # Lymphocytes # (Manual) Eosinophils # (Manual) PT INR D-Dimer POC ABG pH POC ABG pCO2 POC ABG pO2 ABG pO2 ABG HCO3 ABG Base Excess ABG Hemoglobin Oxyhemoglobin Sodium 133 L Potassium 3.3 L Chloride 93.1 L Carbon Dioxide 33 H BUN Creatinine Glucose 161 H POC Glucose Calcium Phosphorus Magnesium ALT Alkaline Phosphatase 136 H Total Creatine Kinase 37 L CK-MB (CK-2) Rel Index Troponin T 0.192 H* Albumin 2.4 L LDL Cholesterol Direct 36 L PTH Intact Salicylates Acetaminophen Crossmatch 02/21/19 02/21/19 02/21/19 18:42 20:04 20:04 WBC RBC Hgb Hct MCH MCHC RDW Lymph % (Auto) [place] % (Auto) Eos % (Auto) Lymph # [place] # Eos # Seg Neutrophils % Seg Neuts % (Manual) Lymphocytes % (Manual) Eosinophils % (Manual) Seg Neutrophils # Lymphocytes # (Manual) Eosinophils # (Manual) PT INR D-Dimer POC ABG pH POC ABG pCO2 56.7 H POC ABG pO2 291 H ABG pO2 ABG HCO3 ABG Base Excess ABG Hemoglobin Oxyhemoglobin Sodium Potassium Chloride Carbon Dioxide BUN Creatinine Glucose POC Glucose Calcium Phosphorus Magnesium ALT Alkaline Phosphatase Total Creatine Kinase CK-MB (CK-2) Rel Index Troponin T Albumin LDL Cholesterol Direct PTH Intact Salicylates < 0.3 L Acetaminophen < 5.0 L Crossmatch 02/21/19 02/22/19 02/22/19 22:35 03:42 03:42 WBC RBC 3.20 L Hgb 8.8 L Hct 27.6 L MCH MCHC RDW 18.9 H Lymph % (Auto) 7.4 L [place] % (Auto) Eos % (Auto) Lymph # 0.7 L [place] # Eos # Seg Neutrophils % 84.7 H Seg Neuts % (Manual) Lymphocytes % (Manual) Eosinophils % (Manual) Seg Neutrophils # Lymphocytes # (Manual) Eosinophils # (Manual) PT INR D-Dimer POC ABG pH POC ABG pCO2 POC ABG pO2 ABG pO2 ABG HCO3 ABG Base Excess ABG Hemoglobin Oxyhemoglobin Sodium 134 L Potassium 2.6 L* D Chloride Carbon Dioxide BUN Creatinine Glucose POC Glucose Calcium Phosphorus Magnesium ALT Alkaline Phosphatase Total Creatine Kinase CK-MB (CK-2) Rel Index 5.2 H Troponin T 0.202 H* Albumin LDL Cholesterol Direct PTH Intact Salicylates Acetaminophen Crossmatch 02/22/19 02/22/19 02/22/19 03:42 05:54 09:04 WBC RBC Hgb Hct MCH MCHC RDW Lymph % (Auto) [place] % (Auto) Eos % (Auto) Lymph # [place] # Eos # Seg Neutrophils % Seg Neuts % (Manual) Lymphocytes % (Manual) Eosinophils % (Manual) Seg Neutrophils # Lymphocytes # (Manual) Eosinophils # (Manual) PT INR D-Dimer 2987.82 H POC ABG pH 7.451 H POC ABG pCO2 POC ABG pO2 ABG pO2 ABG HCO3 ABG Base Excess ABG Hemoglobin Oxyhemoglobin Sodium Potassium Chloride Carbon Dioxide BUN Creatinine Glucose POC Glucose Calcium Phosphorus Magnesium ALT Alkaline Phosphatase Total Creatine Kinase CK-MB (CK-2) Rel Index 5.7 H Troponin T 0.193 H* Albumin LDL Cholesterol Direct PTH Intact Salicylates Acetaminophen Crossmatch 02/22/19 02/22/19 02/23/19 10:36 23:56 00:52 WBC RBC Hgb Hct MCH MCHC RDW Lymph % (Auto) [place] % (Auto) Eos % (Auto) Lymph # [place] # Eos # Seg Neutrophils % Seg Neuts % (Manual) Lymphocytes % (Manual) Eosinophils % (Manual) Seg Neutrophils # Lymphocytes # (Manual) Eosinophils # (Manual) PT INR D-Dimer POC ABG pH POC ABG pCO2 POC ABG pO2 ABG pO2 ABG HCO3 ABG Base Excess ABG Hemoglobin Oxyhemoglobin Sodium Potassium 3.1 L Chloride Carbon Dioxide BUN Creatinine Glucose POC Glucose 58 L 111 H Calcium Phosphorus Magnesium ALT Alkaline Phosphatase Total Creatine Kinase CK-MB (CK-2) Rel Index Troponin T Albumin LDL Cholesterol Direct PTH Intact Salicylates Acetaminophen Crossmatch 02/23/19 02/23/19 02/23/19 05:00 06:35 14:26 WBC RBC Hgb Hct MCH MCHC RDW Lymph % (Auto) [place] % (Auto) Eos % (Auto) Lymph # [place] # Eos # Seg Neutrophils % Seg Neuts % (Manual) Lymphocytes % (Manual) Eosinophils % (Manual) Seg Neutrophils # Lymphocytes # (Manual) Eosinophils # (Manual) PT INR D-Dimer POC ABG pH POC ABG pCO2 POC ABG pO2 ABG pO2 ABG HCO3 ABG Base Excess ABG Hemoglobin Oxyhemoglobin Sodium 135 L Potassium 3.1 L Chloride Carbon Dioxide BUN 21 H Creatinine 2.0 H Glucose 57 L POC Glucose 64 L 62 L Calcium Phosphorus Magnesium ALT Alkaline Phosphatase Total Creatine Kinase CK-MB (CK-2) Rel Index Troponin T Albumin LDL Cholesterol Direct PTH Intact Salicylates Acetaminophen Crossmatch 02/24/19 02/24/19 02/24/19 02:11 04:12 04:55 WBC RBC 2.84 L Hgb 7.8 L Hct 24.5 L MCH MCHC RDW 19.5 H Lymph % (Auto) [place] % (Auto) Eos % (Auto) Lymph # [place] # Eos # Seg Neutrophils % Seg Neuts % (Manual) Lymphocytes % (Manual) Eosinophils % (Manual) Seg Neutrophils # Lymphocytes # (Manual) Eosinophils # (Manual) PT INR D-Dimer POC ABG pH 7.511 H POC ABG pCO2 33.9 L POC ABG pO2 62 L ABG pO2 ABG HCO3 ABG Base Excess ABG Hemoglobin Oxyhemoglobin Sodium Potassium Chloride Carbon Dioxide BUN Creatinine Glucose POC Glucose 69 L Calcium Phosphorus Magnesium ALT Alkaline Phosphatase Total Creatine Kinase CK-MB (CK-2) Rel Index Troponin T Albumin LDL Cholesterol Direct PTH Intact Salicylates Acetaminophen Crossmatch 02/24/19 02/24/19 02/25/19 04:55 05:41 04:45 WBC RBC Hgb Hct MCH MCHC RDW Lymph % (Auto) [place] % (Auto) Eos % (Auto) Lymph # [place] # Eos # Seg Neutrophils % Seg Neuts % (Manual) Lymphocytes % (Manual) Eosinophils % (Manual) Seg Neutrophils # Lymphocytes # (Manual) Eosinophils # (Manual) PT INR D-Dimer POC ABG pH 7.466 H POC ABG pCO2 POC ABG pO2 75 L ABG pO2 ABG HCO3 ABG Base Excess ABG Hemoglobin Oxyhemoglobin Sodium Potassium Chloride Carbon Dioxide BUN Creatinine 1.8 H Glucose 73 L POC Glucose 127 H Calcium Phosphorus Magnesium ALT Alkaline Phosphatase Total Creatine Kinase CK-MB (CK-2) Rel Index Troponin T Albumin LDL Cholesterol Direct PTH Intact Salicylates Acetaminophen Crossmatch 02/25/19 02/25/19 02/26/19 16:34 21:33 03:45 WBC RBC 2.96 L Hgb 8.0 L Hct 25.8 L MCH 27 L MCHC 31 L RDW 20.0 H Lymph % (Auto) [place] % (Auto) Eos % (Auto) Lymph # [place] # Eos # Seg Neutrophils % Seg Neuts % (Manual) Lymphocytes % (Manual) Eosinophils % (Manual) Seg Neutrophils # Lymphocytes # (Manual) Eosinophils # (Manual) PT INR D-Dimer POC ABG pH POC ABG pCO2 POC ABG pO2 ABG pO2 ABG HCO3 ABG Base Excess ABG Hemoglobin Oxyhemoglobin Sodium Potassium Chloride Carbon Dioxide BUN Creatinine Glucose POC Glucose 141 H 106 H Calcium Phosphorus Magnesium ALT Alkaline Phosphatase Total Creatine Kinase CK-MB (CK-2) Rel Index Troponin T Albumin LDL Cholesterol Direct PTH Intact Salicylates Acetaminophen Crossmatch 02/26/19 02/26/19 02/26/19 03:45 04:13 07:53 WBC RBC Hgb Hct MCH MCHC RDW Lymph % (Auto) [place] % (Auto) Eos % (Auto) Lymph # [place] # Eos # Seg Neutrophils % Seg Neuts % (Manual) Lymphocytes % (Manual) Eosinophils % (Manual) Seg Neutrophils # Lymphocytes # (Manual) Eosinophils # (Manual) PT INR D-Dimer POC ABG pH 7.470 H POC ABG pCO2 POC ABG pO2 ABG pO2 ABG HCO3 ABG Base Excess ABG Hemoglobin Oxyhemoglobin Sodium Potassium Chloride Carbon Dioxide BUN Creatinine 1.8 H Glucose POC Glucose 110 H Calcium Phosphorus Magnesium ALT Alkaline Phosphatase Total Creatine Kinase CK-MB (CK-2) Rel Index Troponin T Albumin LDL Cholesterol Direct PTH Intact Salicylates Acetaminophen Crossmatch 02/26/19 02/26/19 02/27/19 11:56 17:43 00:12 WBC RBC Hgb Hct MCH MCHC RDW Lymph % (Auto) [place] % (Auto) Eos % (Auto) Lymph # [place] # Eos # Seg Neutrophils % Seg Neuts % (Manual) Lymphocytes % (Manual) Eosinophils % (Manual) Seg Neutrophils # Lymphocytes # (Manual) Eosinophils # (Manual) PT INR D-Dimer POC ABG pH POC ABG pCO2 POC ABG pO2 ABG pO2 ABG HCO3 ABG Base Excess ABG Hemoglobin Oxyhemoglobin Sodium Potassium Chloride Carbon Dioxide BUN Creatinine Glucose POC Glucose 112 H 127 H 127 H Calcium Phosphorus Magnesium ALT Alkaline Phosphatase Total Creatine Kinase CK-MB (CK-2) Rel Index Troponin T Albumin LDL Cholesterol Direct PTH Intact Salicylates Acetaminophen Crossmatch 02/27/19 02/27/19 02/27/19 04:35 13:15 18:02 WBC RBC Hgb Hct MCH MCHC RDW Lymph % (Auto) [place] % (Auto) Eos % (Auto) Lymph # [place] # Eos # Seg Neutrophils % Seg Neuts % (Manual) Lymphocytes % (Manual) Eosinophils % (Manual) Seg Neutrophils # Lymphocytes # (Manual) Eosinophils # (Manual) PT INR D-Dimer POC ABG pH 7.483 H POC ABG pCO2 POC ABG pO2 61 L ABG pO2 ABG HCO3 ABG Base Excess ABG Hemoglobin Oxyhemoglobin Sodium Potassium Chloride Carbon Dioxide BUN Creatinine Glucose POC Glucose 143 H 106 H Calcium Phosphorus Magnesium ALT Alkaline Phosphatase Total Creatine Kinase CK-MB (CK-2) Rel Index Troponin T Albumin LDL Cholesterol Direct PTH Intact Salicylates Acetaminophen Crossmatch 02/28/19 02/28/19 02/28/19 05:50 11:59 17:52 WBC RBC Hgb Hct MCH MCHC RDW Lymph % (Auto) [place] % (Auto) Eos % (Auto) Lymph # [place] # Eos # Seg Neutrophils % Seg Neuts % (Manual) Lymphocytes % (Manual) Eosinophils % (Manual) Seg Neutrophils # Lymphocytes # (Manual) Eosinophils # (Manual) PT INR D-Dimer POC ABG pH POC ABG pCO2 POC ABG pO2 ABG pO2 ABG HCO3 ABG Base Excess ABG Hemoglobin Oxyhemoglobin Sodium Potassium Chloride Carbon Dioxide BUN Creatinine Glucose POC Glucose 134 H 128 H 142 H Calcium Phosphorus Magnesium ALT Alkaline Phosphatase Total Creatine Kinase CK-MB (CK-2) Rel Index Troponin T Albumin LDL Cholesterol Direct PTH Intact Salicylates Acetaminophen Crossmatch 02/28/19 03/01/19 03/01/19 23:13 05:40 09:39 WBC RBC Hgb Hct MCH MCHC RDW Lymph % (Auto) [place] % (Auto) Eos % (Auto) Lymph # [place] # Eos # Seg Neutrophils % Seg Neuts % (Manual) Lymphocytes % (Manual) Eosinophils % (Manual) Seg Neutrophils # Lymphocytes # (Manual) Eosinophils # (Manual) PT 16.3 H INR 1.35 H D-Dimer POC ABG pH POC ABG pCO2 POC ABG pO2 ABG pO2 ABG HCO3 ABG Base Excess ABG Hemoglobin Oxyhemoglobin Sodium Potassium Chloride Carbon Dioxide BUN Creatinine Glucose POC Glucose 112 H 111 H Calcium Phosphorus Magnesium ALT Alkaline Phosphatase Total Creatine Kinase CK-MB (CK-2) Rel Index Troponin T Albumin LDL Cholesterol Direct PTH Intact Salicylates Acetaminophen Crossmatch 03/01/19 03/01/19 03/01/19 11:56 13:54 17:59 WBC RBC Hgb Hct MCH MCHC RDW Lymph % (Auto) [place] % (Auto) Eos % (Auto) Lymph # [place] # Eos # Seg Neutrophils % Seg Neuts % (Manual) Lymphocytes % (Manual) Eosinophils % (Manual) Seg Neutrophils # Lymphocytes # (Manual) Eosinophils # (Manual) PT INR D-Dimer POC ABG pH POC ABG pCO2 POC ABG pO2 ABG pO2 ABG HCO3 ABG Base Excess ABG Hemoglobin Oxyhemoglobin Sodium Potassium Chloride Carbon Dioxide BUN 33 H Creatinine 2.8 H D Glucose 176 H POC Glucose 199 H 147 H Calcium Phosphorus Magnesium ALT Alkaline Phosphatase Total Creatine Kinase CK-MB (CK-2) Rel Index Troponin T Albumin LDL Cholesterol Direct PTH Intact Salicylates Acetaminophen Crossmatch 03/02/19 03/02/19 03/02/19 05:15 05:15 05:15 WBC RBC 2.73 L Hgb 7.4 L Hct 23.0 L MCH 27 L MCHC RDW 19.9 H Lymph % (Auto) [place] % (Auto) 7.9 H Eos % (Auto) 7.6 H Lymph # 1.0 L [place] # Eos # 0.5 H Seg Neutrophils % Seg Neuts % (Manual) Lymphocytes % (Manual) Eosinophils % (Manual) Seg Neutrophils # Lymphocytes # (Manual) Eosinophils # (Manual) PT INR D-Dimer POC ABG pH POC ABG pCO2 POC ABG pO2 ABG pO2 ABG HCO3 ABG Base Excess ABG Hemoglobin Oxyhemoglobin Sodium Potassium Chloride Carbon Dioxide BUN 43 H Creatinine 3.2 H Glucose POC Glucose Calcium Phosphorus 2.30 L Magnesium ALT Alkaline Phosphatase Total Creatine Kinase CK-MB (CK-2) Rel Index Troponin T Albumin LDL Cholesterol Direct PTH Intact 267.6 H Salicylates Acetaminophen Crossmatch 03/02/19 03/02/19 03/03/19 12:32 18:20 13:30 WBC RBC Hgb Hct MCH MCHC RDW Lymph % (Auto) [place] % (Auto) Eos % (Auto) Lymph # [place] # Eos # Seg Neutrophils % Seg Neuts % (Manual) Lymphocytes % (Manual) Eosinophils % (Manual) Seg Neutrophils # Lymphocytes # (Manual) Eosinophils # (Manual) PT INR D-Dimer POC ABG pH POC ABG pCO2 POC ABG pO2 ABG pO2 ABG HCO3 ABG Base Excess ABG Hemoglobin Oxyhemoglobin Sodium Potassium Chloride 97.3 L Carbon Dioxide BUN 26 H Creatinine 2.2 H Glucose 73 L POC Glucose 111 H 156 H Calcium Phosphorus Magnesium ALT Alkaline Phosphatase Total Creatine Kinase CK-MB (CK-2) Rel Index Troponin T Albumin LDL Cholesterol Direct PTH Intact Salicylates Acetaminophen Crossmatch 03/04/19 03/04/19 03/04/19 00:02 05:37 05:40 WBC RBC 2.63 L Hgb 7.2 L Hct 22.2 L MCH MCHC RDW 20.2 H Lymph % (Auto) 10.5 L [place] % (Auto) Eos % (Auto) 4.6 H Lymph # 0.7 L [place] # Eos # Seg Neutrophils % 76.9 H Seg Neuts % (Manual) Lymphocytes % (Manual) Eosinophils % (Manual) Seg Neutrophils # Lymphocytes # (Manual) Eosinophils # (Manual) PT INR D-Dimer POC ABG pH POC ABG pCO2 POC ABG pO2 ABG pO2 ABG HCO3 ABG Base Excess ABG Hemoglobin Oxyhemoglobin Sodium Potassium Chloride Carbon Dioxide BUN Creatinine Glucose POC Glucose 136 H 123 H Calcium Phosphorus Magnesium ALT Alkaline Phosphatase Total Creatine Kinase CK-MB (CK-2) Rel Index Troponin T Albumin LDL Cholesterol Direct PTH Intact Salicylates Acetaminophen Crossmatch 03/04/19 03/04/19 03/04/19 05:40 11:39 23:20 WBC RBC Hgb Hct MCH MCHC RDW Lymph % (Auto) [place] % (Auto) Eos % (Auto) Lymph # [place] # Eos # Seg Neutrophils % Seg Neuts % (Manual) Lymphocytes % (Manual) Eosinophils % (Manual) Seg Neutrophils # Lymphocytes # (Manual) Eosinophils # (Manual) PT INR D-Dimer POC ABG pH POC ABG pCO2 POC ABG pO2 ABG pO2 ABG HCO3 ABG Base Excess ABG Hemoglobin Oxyhemoglobin Sodium Potassium Chloride Carbon Dioxide BUN 34 H Creatinine 2.7 H Glucose 114 H POC Glucose 175 H 151 H Calcium Phosphorus Magnesium ALT Alkaline Phosphatase Total Creatine Kinase CK-MB (CK-2) Rel Index Troponin T Albumin LDL Cholesterol Direct PTH Intact Salicylates Acetaminophen Crossmatch 03/05/19 03/05/19 03/05/19 05:37 12:08 17:11 WBC RBC Hgb Hct MCH MCHC RDW Lymph % (Auto) [place] % (Auto) Eos % (Auto) Lymph # [place] # Eos # Seg Neutrophils % Seg Neuts % (Manual) Lymphocytes % (Manual) Eosinophils % (Manual) Seg Neutrophils # Lymphocytes # (Manual) Eosinophils # (Manual) PT INR D-Dimer POC ABG pH POC ABG pCO2 POC ABG pO2 ABG pO2 ABG HCO3 ABG Base Excess ABG Hemoglobin Oxyhemoglobin Sodium Potassium Chloride Carbon Dioxide BUN Creatinine Glucose POC Glucose 134 H 135 H 135 H Calcium Phosphorus Magnesium ALT Alkaline Phosphatase Total Creatine Kinase CK-MB (CK-2) Rel Index Troponin T Albumin LDL Cholesterol Direct PTH Intact Salicylates Acetaminophen Crossmatch 03/06/19 03/06/19 03/06/19 00:16 13:05 18:09 WBC RBC Hgb Hct MCH MCHC RDW Lymph % (Auto) [place] % (Auto) Eos % (Auto) Lymph # [place] # Eos # Seg Neutrophils % Seg Neuts % (Manual) Lymphocytes % (Manual) Eosinophils % (Manual) Seg Neutrophils # Lymphocytes # (Manual) Eosinophils # (Manual) PT INR D-Dimer POC ABG pH POC ABG pCO2 POC ABG pO2 ABG pO2 ABG HCO3 ABG Base Excess ABG Hemoglobin Oxyhemoglobin Sodium Potassium Chloride Carbon Dioxide BUN Creatinine Glucose POC Glucose 117 H 113 H 131 H Calcium Phosphorus Magnesium ALT Alkaline Phosphatase Total Creatine Kinase CK-MB (CK-2) Rel Index Troponin T Albumin LDL Cholesterol Direct PTH Intact Salicylates Acetaminophen Crossmatch 03/07/19 03/08/19 03/08/19 05:25 05:33 16:00 WBC RBC 2.44 L Hgb 6.6 L Hct 20.8 L MCH 27 L MCHC RDW 19.2 H Lymph % (Auto) [place] % (Auto) Eos % (Auto) 8.6 H Lymph # 0.8 L [place] # Eos # 0.5 H Seg Neutrophils % 70.7 H Seg Neuts % (Manual) Lymphocytes % (Manual) Eosinophils % (Manual) Seg Neutrophils # Lymphocytes # (Manual) Eosinophils # (Manual) PT INR D-Dimer POC ABG pH POC ABG pCO2 POC ABG pO2 ABG pO2 ABG HCO3 ABG Base Excess ABG Hemoglobin Oxyhemoglobin Sodium Potassium Chloride Carbon Dioxide BUN Creatinine Glucose POC Glucose 106 H 108 H Calcium Phosphorus Magnesium ALT Alkaline Phosphatase Total Creatine Kinase CK-MB (CK-2) Rel Index Troponin T Albumin LDL Cholesterol Direct PTH Intact Salicylates Acetaminophen Crossmatch 03/08/19 03/08/19 03/08/19 16:00 18:38 Unknown WBC RBC Hgb Hct MCH MCHC RDW Lymph % (Auto) [place] % (Auto) Eos % (Auto) Lymph # [place] # Eos # Seg Neutrophils % Seg Neuts % (Manual) Lymphocytes % (Manual) Eosinophils % (Manual) Seg Neutrophils # Lymphocytes # (Manual) Eosinophils # (Manual) PT INR D-Dimer POC ABG pH POC ABG pCO2 POC ABG pO2 ABG pO2 ABG HCO3 ABG Base Excess ABG Hemoglobin Oxyhemoglobin Sodium Potassium 5.4 H D Chloride Carbon Dioxide BUN 47 H Creatinine 2.6 H Glucose POC Glucose 123 H Calcium Phosphorus Magnesium ALT < 5 L Alkaline Phosphatase Total Creatine Kinase CK-MB (CK-2) Rel Index Troponin T Albumin 2.2 L LDL Cholesterol Direct PTH Intact Salicylates Acetaminophen Crossmatch See Detail 03/09/19 03/09/19 03/09/19 10:48 12:28 13:53 WBC RBC 2.85 L Hgb 7.7 L Hct 24.2 L MCH 27 L MCHC RDW 18.7 H Lymph % (Auto) [place] % (Auto) Eos % (Auto) Lymph # [place] # Eos # Seg Neutrophils % Seg Neuts % (Manual) Lymphocytes % (Manual) Eosinophils % (Manual) Seg Neutrophils # Lymphocytes # (Manual) Eosinophils # (Manual) PT INR D-Dimer POC ABG pH POC ABG pCO2 POC ABG pO2 ABG pO2 ABG HCO3 30.5 H ABG Base Excess 5.6 H ABG Hemoglobin 8.1 L Oxyhemoglobin 93.8 L Sodium Potassium Chloride Carbon Dioxide BUN Creatinine Glucose POC Glucose 114 H Calcium Phosphorus Magnesium ALT Alkaline Phosphatase Total Creatine Kinase CK-MB (CK-2) Rel Index Troponin T Albumin LDL Cholesterol Direct PTH Intact Salicylates Acetaminophen Crossmatch 03/09/19 03/09/19 03/10/19 17:58 23:53 12:01 WBC RBC Hgb Hct MCH MCHC RDW Lymph % (Auto) [place] % (Auto) Eos % (Auto) Lymph # [place] # Eos # Seg Neutrophils % Seg Neuts % (Manual) Lymphocytes % (Manual) Eosinophils % (Manual) Seg Neutrophils # Lymphocytes # (Manual) Eosinophils # (Manual) PT INR D-Dimer POC ABG pH POC ABG pCO2 POC ABG pO2 ABG pO2 ABG HCO3 ABG Base Excess ABG Hemoglobin Oxyhemoglobin Sodium Potassium Chloride Carbon Dioxide BUN Creatinine Glucose POC Glucose 108 H 128 H 144 H Calcium Phosphorus Magnesium ALT Alkaline Phosphatase Total Creatine Kinase CK-MB (CK-2) Rel Index Troponin T Albumin LDL Cholesterol Direct PTH Intact Salicylates Acetaminophen Crossmatch 03/10/19 03/11/19 03/11/19 16:50 00:24 05:02 WBC RBC Hgb Hct MCH MCHC RDW Lymph % (Auto) [place] % (Auto) Eos % (Auto) Lymph # [place] # Eos # Seg Neutrophils % Seg Neuts % (Manual) Lymphocytes % (Manual) Eosinophils % (Manual) Seg Neutrophils # Lymphocytes # (Manual) Eosinophils # (Manual) PT INR D-Dimer POC ABG pH POC ABG pCO2 POC ABG pO2 ABG pO2 ABG HCO3 ABG Base Excess ABG Hemoglobin Oxyhemoglobin Sodium Potassium Chloride Carbon Dioxide BUN Creatinine Glucose POC Glucose 147 H 123 H 120 H Calcium Phosphorus Magnesium ALT Alkaline Phosphatase Total Creatine Kinase CK-MB (CK-2) Rel Index Troponin T Albumin LDL Cholesterol Direct PTH Intact Salicylates Acetaminophen Crossmatch 03/11/19 03/11/19 03/11/19 11:56 12:20 18:37 WBC RBC Hgb Hct MCH MCHC RDW Lymph % (Auto) [place] % (Auto) Eos % (Auto) Lymph # [place] # Eos # Seg Neutrophils % Seg Neuts % (Manual) Lymphocytes % (Manual) Eosinophils % (Manual) Seg Neutrophils # Lymphocytes # (Manual) Eosinophils # (Manual) PT INR D-Dimer POC ABG pH POC ABG pCO2 POC ABG pO2 ABG pO2 ABG HCO3 ABG Base Excess ABG Hemoglobin Oxyhemoglobin Sodium Potassium 5.2 H Chloride Carbon Dioxide BUN Creatinine Glucose POC Glucose 123 H 125 H Calcium Phosphorus Magnesium ALT Alkaline Phosphatase Total Creatine Kinase CK-MB (CK-2) Rel Index Troponin T Albumin LDL Cholesterol Direct PTH Intact Salicylates Acetaminophen Crossmatch 03/11/19 03/12/19 03/12/19 22:52 12:04 18:25 WBC RBC Hgb Hct MCH MCHC RDW Lymph % (Auto) [place] % (Auto) Eos % (Auto) Lymph # [place] # Eos # Seg Neutrophils % Seg Neuts % (Manual) Lymphocytes % (Manual) Eosinophils % (Manual) Seg Neutrophils # Lymphocytes # (Manual) Eosinophils # (Manual) PT INR D-Dimer POC ABG pH POC ABG pCO2 POC ABG pO2 ABG pO2 ABG HCO3 ABG Base Excess ABG Hemoglobin Oxyhemoglobin Sodium Potassium Chloride Carbon Dioxide BUN Creatinine Glucose POC Glucose 110 H 106 H 118 H Calcium Phosphorus Magnesium ALT Alkaline Phosphatase Total Creatine Kinase CK-MB (CK-2) Rel Index Troponin T Albumin LDL Cholesterol Direct PTH Intact Salicylates Acetaminophen Crossmatch 03/12/19 03/13/19 03/13/19 23:36 04:38 04:38 WBC RBC 2.95 L Hgb 7.9 L Hct 24.9 L MCH 27 L MCHC RDW 19.9 H Lymph % (Auto) 11.1 L [place] % (Auto) 8.1 H Eos % (Auto) 4.4 H Lymph # 0.9 L [place] # Eos # Seg Neutrophils % 75.4 H Seg Neuts % (Manual) Lymphocytes % (Manual) Eosinophils % (Manual) Seg Neutrophils # Lymphocytes # (Manual) Eosinophils # (Manual) PT INR D-Dimer POC ABG pH POC ABG pCO2 POC ABG pO2 ABG pO2 ABG HCO3 ABG Base Excess ABG Hemoglobin Oxyhemoglobin Sodium 136 L Potassium 5.1 H Chloride 93.8 L Carbon Dioxide BUN 48 H Creatinine 2.7 H Glucose 102 H POC Glucose 115 H Calcium Phosphorus Magnesium ALT < 5 L Alkaline Phosphatase 143 H Total Creatine Kinase CK-MB (CK-2) Rel Index Troponin T Albumin 2.5 L LDL Cholesterol Direct PTH Intact Salicylates Acetaminophen Crossmatch 03/13/19 03/13/19 03/13/19 05:33 13:37 18:03 WBC RBC Hgb Hct MCH MCHC RDW Lymph % (Auto) [place] % (Auto) Eos % (Auto) Lymph # [place] # Eos # Seg Neutrophils % Seg Neuts % (Manual) Lymphocytes % (Manual) Eosinophils % (Manual) Seg Neutrophils # Lymphocytes # (Manual) Eosinophils # (Manual) PT INR D-Dimer POC ABG pH POC ABG pCO2 POC ABG pO2 ABG pO2 ABG HCO3 ABG Base Excess ABG Hemoglobin Oxyhemoglobin Sodium Potassium Chloride Carbon Dioxide BUN Creatinine Glucose POC Glucose 140 H 150 H 158 H Calcium Phosphorus Magnesium ALT Alkaline Phosphatase Total Creatine Kinase CK-MB (CK-2) Rel Index Troponin T Albumin LDL Cholesterol Direct PTH Intact Salicylates Acetaminophen Crossmatch 03/13/19 03/14/19 03/14/19 23:32 05:24 12:20 WBC RBC Hgb Hct MCH MCHC RDW Lymph % (Auto) [place] % (Auto) Eos % (Auto) Lymph # [place] # Eos # Seg Neutrophils % Seg Neuts % (Manual) Lymphocytes % (Manual) Eosinophils % (Manual) Seg Neutrophils # Lymphocytes # (Manual) Eosinophils # (Manual) PT INR D-Dimer POC ABG pH POC ABG pCO2 POC ABG pO2 ABG pO2 ABG HCO3 ABG Base Excess ABG Hemoglobin Oxyhemoglobin Sodium Potassium Chloride Carbon Dioxide BUN Creatinine Glucose POC Glucose 162 H 146 H 127 H Calcium Phosphorus Magnesium ALT Alkaline Phosphatase Total Creatine Kinase CK-MB (CK-2) Rel Index Troponin T Albumin LDL Cholesterol Direct PTH Intact Salicylates Acetaminophen Crossmatch 03/14/19 03/14/19 03/15/19 18:05 23:57 04:38 WBC 12.8 H RBC 3.11 L Hgb 8.1 L Hct 26.5 L MCH 26 L MCHC 31 L RDW 19.7 H Lymph % (Auto) 4.4 L [place] % (Auto) 7.4 H Eos % (Auto) Lymph # 0.6 L [place] # 0.9 H Eos # Seg Neutrophils % 87.3 H Seg Neuts % (Manual) Lymphocytes % (Manual) Eosinophils % (Manual) Seg Neutrophils # 11.2 H Lymphocytes # (Manual) Eosinophils # (Manual) PT INR D-Dimer POC ABG pH POC ABG pCO2 POC ABG pO2 ABG pO2 ABG HCO3 ABG Base Excess ABG Hemoglobin Oxyhemoglobin Sodium Potassium Chloride Carbon Dioxide BUN Creatinine Glucose POC Glucose 142 H 155 H Calcium Phosphorus Magnesium ALT Alkaline Phosphatase Total Creatine Kinase CK-MB (CK-2) Rel Index Troponin T Albumin LDL Cholesterol Direct PTH Intact Salicylates Acetaminophen Crossmatch 03/15/19 03/15/19 03/15/19 04:38 05:31 11:32 WBC RBC Hgb Hct MCH MCHC RDW Lymph % (Auto) [place] % (Auto) Eos % (Auto) Lymph # [place] # Eos # Seg Neutrophils % Seg Neuts % (Manual) Lymphocytes % (Manual) Eosinophils % (Manual) Seg Neutrophils # Lymphocytes # (Manual) Eosinophils # (Manual) PT INR D-Dimer POC ABG pH POC ABG pCO2 POC ABG pO2 ABG pO2 ABG HCO3 ABG Base Excess ABG Hemoglobin Oxyhemoglobin Sodium 135 L Potassium Chloride 91.9 L Carbon Dioxide BUN 54 H Creatinine 2.8 H Glucose 128 H POC Glucose 160 H 109 H Calcium 11.1 H Phosphorus Magnesium ALT Alkaline Phosphatase 161 H Total Creatine Kinase CK-MB (CK-2) Rel Index Troponin T Albumin 2.3 L LDL Cholesterol Direct PTH Intact Salicylates Acetaminophen Crossmatch 03/15/19 03/15/19 03/16/19 18:15 23:41 05:40 WBC RBC Hgb Hct MCH MCHC RDW Lymph % (Auto) [place] % (Auto) Eos % (Auto) Lymph # [place] # Eos # Seg Neutrophils % Seg Neuts % (Manual) Lymphocytes % (Manual) Eosinophils % (Manual) Seg Neutrophils # Lymphocytes # (Manual) Eosinophils # (Manual) PT INR D-Dimer POC ABG pH POC ABG pCO2 POC ABG pO2 ABG pO2 ABG HCO3 ABG Base Excess ABG Hemoglobin Oxyhemoglobin Sodium Potassium Chloride Carbon Dioxide BUN Creatinine Glucose POC Glucose 151 H 110 H 163 H Calcium Phosphorus Magnesium ALT Alkaline Phosphatase Total Creatine Kinase CK-MB (CK-2) Rel Index Troponin T Albumin LDL Cholesterol Direct PTH Intact Salicylates Acetaminophen Crossmatch 03/16/19 03/16/19 03/16/19 11:55 17:04 23:58 WBC RBC Hgb Hct MCH MCHC RDW Lymph % (Auto) [place] % (Auto) Eos % (Auto) Lymph # [place] # Eos # Seg Neutrophils % Seg Neuts % (Manual) Lymphocytes % (Manual) Eosinophils % (Manual) Seg Neutrophils # Lymphocytes # (Manual) Eosinophils # (Manual) PT INR D-Dimer POC ABG pH POC ABG pCO2 POC ABG pO2 ABG pO2 ABG HCO3 ABG Base Excess ABG Hemoglobin Oxyhemoglobin Sodium Potassium Chloride Carbon Dioxide BUN Creatinine Glucose POC Glucose 114 H 147 H 192 H Calcium Phosphorus Magnesium ALT Alkaline Phosphatase Total Creatine Kinase CK-MB (CK-2) Rel Index Troponin T Albumin LDL Cholesterol Direct PTH Intact Salicylates Acetaminophen Crossmatch 03/17/19 03/17/19 03/17/19 05:53 11:17 17:01 WBC RBC Hgb Hct MCH MCHC RDW Lymph % (Auto) [place] % (Auto) Eos % (Auto) Lymph # [place] # Eos # Seg Neutrophils % Seg Neuts % (Manual) Lymphocytes % (Manual) Eosinophils % (Manual) Seg Neutrophils # Lymphocytes # (Manual) Eosinophils # (Manual) PT INR D-Dimer POC ABG pH POC ABG pCO2 POC ABG pO2 ABG pO2 ABG HCO3 ABG Base Excess ABG Hemoglobin Oxyhemoglobin Sodium Potassium Chloride Carbon Dioxide BUN Creatinine Glucose POC Glucose 151 H 161 H 152 H Calcium Phosphorus Magnesium ALT Alkaline Phosphatase Total Creatine Kinase CK-MB (CK-2) Rel Index Troponin T Albumin LDL Cholesterol Direct PTH Intact Salicylates Acetaminophen Crossmatch 03/17/19 03/18/19 03/18/19 21:47 04:15 04:44 WBC RBC Hgb Hct MCH MCHC RDW Lymph % (Auto) [place] % (Auto) Eos % (Auto) Lymph # [place] # Eos # Seg Neutrophils % Seg Neuts % (Manual) Lymphocytes % (Manual) Eosinophils % (Manual) Seg Neutrophils # Lymphocytes # (Manual) Eosinophils # (Manual) PT INR D-Dimer POC ABG pH POC ABG pCO2 POC ABG pO2 ABG pO2 102.8 H ABG HCO3 28.3 H ABG Base Excess ABG Hemoglobin 10.4 L Oxyhemoglobin 94.5 L Sodium Potassium Chloride Carbon Dioxide BUN Creatinine Glucose POC Glucose 170 H 150 H Calcium Phosphorus Magnesium ALT Alkaline Phosphatase Total Creatine Kinase CK-MB (CK-2) Rel Index Troponin T Albumin LDL Cholesterol Direct PTH Intact Salicylates Acetaminophen Crossmatch 03/18/19 03/18/19 03/18/19 06:38 12:12 17:47 WBC RBC Hgb Hct MCH MCHC RDW Lymph % (Auto) [place] % (Auto) Eos % (Auto) Lymph # [place] # Eos # Seg Neutrophils % Seg Neuts % (Manual) Lymphocytes % (Manual) Eosinophils % (Manual) Seg Neutrophils # Lymphocytes # (Manual) Eosinophils # (Manual) PT INR D-Dimer POC ABG pH 7.510 H POC ABG pCO2 POC ABG pO2 164 H ABG pO2 ABG HCO3 ABG Base Excess ABG Hemoglobin Oxyhemoglobin Sodium Potassium Chloride Carbon Dioxide BUN Creatinine Glucose POC Glucose 145 H 149 H Calcium Phosphorus Magnesium ALT Alkaline Phosphatase Total Creatine Kinase CK-MB (CK-2) Rel Index Troponin T Albumin LDL Cholesterol Direct PTH Intact Salicylates Acetaminophen Crossmatch 03/18/19 03/19/19 03/19/19 23:25 01:11 04:23 WBC 15.6 H RBC 2.51 L Hgb 6.5 L Hct 21.6 L MCH 26 L MCHC 30 L RDW 19.8 H Lymph % (Auto) 6.0 L [place] % (Auto) Eos % (Auto) Lymph # 0.9 L [place] # 1.0 H Eos # Seg Neutrophils % 85.5 H Seg Neuts % (Manual) Lymphocytes % (Manual) Eosinophils % (Manual) Seg Neutrophils # 13.4 H Lymphocytes # (Manual) Eosinophils # (Manual) PT INR D-Dimer POC ABG pH POC ABG pCO2 POC ABG pO2 ABG pO2 78.3 L ABG HCO3 30.7 H ABG Base Excess 5.8 H ABG Hemoglobin 5.8 L Oxyhemoglobin 94.6 L Sodium Potassium Chloride Carbon Dioxide BUN Creatinine Glucose POC Glucose 190 H Calcium Phosphorus Magnesium ALT Alkaline Phosphatase Total Creatine Kinase CK-MB (CK-2) Rel Index Troponin T Albumin LDL Cholesterol Direct PTH Intact Salicylates Acetaminophen Crossmatch 03/19/19 03/19/19 03/19/19 05:22 05:35 08:54 WBC RBC Hgb Hct MCH MCHC RDW Lymph % (Auto) [place] % (Auto) Eos % (Auto) Lymph # [place] # Eos # Seg Neutrophils % Seg Neuts % (Manual) Lymphocytes % (Manual) Eosinophils % (Manual) Seg Neutrophils # Lymphocytes # (Manual) Eosinophils # (Manual) PT INR D-Dimer POC ABG pH POC ABG pCO2 POC ABG pO2 ABG pO2 ABG HCO3 ABG Base Excess ABG Hemoglobin Oxyhemoglobin Sodium Potassium Chloride Carbon Dioxide BUN Creatinine Glucose POC Glucose 167 H Calcium Phosphorus Magnesium ALT Alkaline Phosphatase Total Creatine Kinase CK-MB (CK-2) Rel Index Troponin T Albumin LDL Cholesterol Direct PTH Intact Salicylates Acetaminophen Crossmatch See Detail See Detail 03/19/19 03/19/19 03/19/19 12:36 17:02 23:25 WBC RBC Hgb Hct MCH MCHC RDW Lymph % (Auto) [place] % (Auto) Eos % (Auto) Lymph # [place] # Eos # Seg Neutrophils % Seg Neuts % (Manual) Lymphocytes % (Manual) Eosinophils % (Manual) Seg Neutrophils # Lymphocytes # (Manual) Eosinophils # (Manual) PT INR D-Dimer POC ABG pH POC ABG pCO2 POC ABG pO2 ABG pO2 ABG HCO3 ABG Base Excess ABG Hemoglobin Oxyhemoglobin Sodium Potassium Chloride Carbon Dioxide BUN Creatinine Glucose POC Glucose 167 H 135 H 136 H Calcium Phosphorus Magnesium ALT Alkaline Phosphatase Total Creatine Kinase CK-MB (CK-2) Rel Index Troponin T Albumin LDL Cholesterol Direct PTH Intact Salicylates Acetaminophen Crossmatch 03/20/19 03/20/19 03/20/19 05:38 08:40 08:40 WBC RBC 2.61 L Hgb 7.1 L Hct 22.0 L MCH 27 L MCHC RDW 19.6 H Lymph % (Auto) 8.2 L [place] % (Auto) 8.3 H Eos % (Auto) 5.7 H Lymph # 0.8 L [place] # Eos # 0.5 H Seg Neutrophils % 77.3 H Seg Neuts % (Manual) Lymphocytes % (Manual) Eosinophils % (Manual) Seg Neutrophils # Lymphocytes # (Manual) Eosinophils # (Manual) PT INR D-Dimer POC ABG pH POC ABG pCO2 POC ABG pO2 ABG pO2 ABG HCO3 ABG Base Excess ABG Hemoglobin Oxyhemoglobin Sodium Potassium Chloride 95.9 L Carbon Dioxide BUN 69 H Creatinine 2.8 H Glucose 115 H POC Glucose 134 H Calcium 10.5 H Phosphorus Magnesium ALT Alkaline Phosphatase Total Creatine Kinase CK-MB (CK-2) Rel Index Troponin T Albumin LDL Cholesterol Direct PTH Intact Salicylates Acetaminophen Crossmatch 03/20/19 03/20/19 03/20/19 12:13 18:04 23:49 WBC RBC Hgb Hct MCH MCHC RDW Lymph % (Auto) [place] % (Auto) Eos % (Auto) Lymph # [place] # Eos # Seg Neutrophils % Seg Neuts % (Manual) Lymphocytes % (Manual) Eosinophils % (Manual) Seg Neutrophils # Lymphocytes # (Manual) Eosinophils # (Manual) PT INR D-Dimer POC ABG pH POC ABG pCO2 POC ABG pO2 ABG pO2 ABG HCO3 ABG Base Excess ABG Hemoglobin Oxyhemoglobin Sodium Potassium Chloride Carbon Dioxide BUN Creatinine Glucose POC Glucose 144 H 165 H 172 H Calcium Phosphorus Magnesium ALT Alkaline Phosphatase Total Creatine Kinase CK-MB (CK-2) Rel Index Troponin T Albumin LDL Cholesterol Direct PTH Intact Salicylates Acetaminophen Crossmatch 03/21/19 03/21/19 03/21/19 05:00 06:29 06:30 WBC RBC 2.72 L Hgb 7.4 L Hct 22.9 L MCH 27 L MCHC RDW 19.4 H Lymph % (Auto) [place] % (Auto) Eos % (Auto) Lymph # [place] # Eos # Seg Neutrophils % Seg Neuts % (Manual) 81.0 H Lymphocytes % (Manual) 8.0 L Eosinophils % (Manual) 8.0 H Seg Neutrophils # Lymphocytes # (Manual) 0.7 L Eosinophils # (Manual) 0.7 H PT INR D-Dimer POC ABG pH POC ABG pCO2 POC ABG pO2 ABG pO2 ABG HCO3 ABG Base Excess ABG Hemoglobin Oxyhemoglobin Sodium Potassium Chloride Carbon Dioxide 33 H BUN 43 H Creatinine 1.7 H Glucose 145 H POC Glucose 156 H Calcium Phosphorus Magnesium ALT Alkaline Phosphatase 212 H Total Creatine Kinase CK-MB (CK-2) Rel Index Troponin T Albumin 2.2 L LDL Cholesterol Direct PTH Intact Salicylates Acetaminophen Crossmatch 03/21/19 03/21/19 03/22/19 12:02 18:07 00:21 WBC RBC Hgb Hct MCH MCHC RDW Lymph % (Auto) [place] % (Auto) Eos % (Auto) Lymph # [place] # Eos # Seg Neutrophils % Seg Neuts % (Manual) Lymphocytes % (Manual) Eosinophils % (Manual) Seg Neutrophils # Lymphocytes # (Manual) Eosinophils # (Manual) PT INR D-Dimer POC ABG pH POC ABG pCO2 POC ABG pO2 ABG pO2 ABG HCO3 ABG Base Excess ABG Hemoglobin Oxyhemoglobin Sodium Potassium Chloride Carbon Dioxide BUN Creatinine Glucose POC Glucose 163 H 144 H 153 H Calcium Phosphorus Magnesium ALT Alkaline Phosphatase Total Creatine Kinase CK-MB (CK-2) Rel Index Troponin T Albumin LDL Cholesterol Direct PTH Intact Salicylates Acetaminophen Crossmatch 03/22/19 03/22/19 03/22/19 05:23 05:23 05:31 WBC RBC 2.58 L Hgb 7.1 L Hct 21.8 L MCH 27 L MCHC RDW 19.2 H Lymph % (Auto) [place] % (Auto) Eos % (Auto) Lymph # [place] # Eos # Seg Neutrophils % Seg Neuts % (Manual) Lymphocytes % (Manual) Eosinophils % (Manual) Seg Neutrophils # Lymphocytes # (Manual) Eosinophils # (Manual) PT INR D-Dimer POC ABG pH POC ABG pCO2 POC ABG pO2 ABG pO2 ABG HCO3 ABG Base Excess ABG Hemoglobin Oxyhemoglobin Sodium 147 H Potassium Chloride Carbon Dioxide BUN 68 H Creatinine 2.5 H Glucose POC Glucose 116 H Calcium 10.3 H Phosphorus Magnesium ALT Alkaline Phosphatase Total Creatine Kinase CK-MB (CK-2) Rel Index Troponin T Albumin LDL Cholesterol Direct PTH Intact Salicylates Acetaminophen Crossmatch 03/22/19 03/22/19 03/22/19 08:48 12:37 17:35 WBC RBC Hgb Hct MCH MCHC RDW Lymph % (Auto) [place] % (Auto) Eos % (Auto) Lymph # [place] # Eos # Seg Neutrophils % Seg Neuts % (Manual) Lymphocytes % (Manual) Eosinophils % (Manual) Seg Neutrophils # Lymphocytes # (Manual) Eosinophils # (Manual) PT INR D-Dimer POC ABG pH POC ABG pCO2 POC ABG pO2 ABG pO2 ABG HCO3 ABG Base Excess ABG Hemoglobin Oxyhemoglobin Sodium Potassium Chloride Carbon Dioxide BUN Creatinine Glucose POC Glucose 143 H 155 H Calcium Phosphorus Magnesium ALT Alkaline Phosphatase Total Creatine Kinase CK-MB (CK-2) Rel Index Troponin T Albumin LDL Cholesterol Direct PTH Intact Salicylates Acetaminophen Crossmatch See Detail 03/23/19 03/23/19 03/23/19 00:07 04:00 04:00 WBC 11.2 H RBC 2.32 L Hgb 6.4 L Hct 19.7 L* MCH MCHC RDW 19.4 H Lymph % (Auto) [place] % (Auto) Eos % (Auto) Lymph # [place] # Eos # Seg Neutrophils % Seg Neuts % (Manual) Lymphocytes % (Manual) Eosinophils % (Manual) Seg Neutrophils # Lymphocytes # (Manual) Eosinophils # (Manual) PT INR D-Dimer POC ABG pH POC ABG pCO2 POC ABG pO2 ABG pO2 ABG HCO3 ABG Base Excess ABG Hemoglobin Oxyhemoglobin Sodium 147 H Potassium 5.2 H Chloride Carbon Dioxide BUN 86 H Creatinine 3.2 H Glucose 128 H POC Glucose 135 H Calcium 10.3 H Phosphorus Magnesium ALT Alkaline Phosphatase Total Creatine Kinase CK-MB (CK-2) Rel Index Troponin T Albumin LDL Cholesterol Direct PTH Intact Salicylates Acetaminophen Crossmatch 03/23/19 03/23/19 03/23/19 05:21 11:36 11:36 WBC RBC Hgb 7.9 L Hct 25.0 L MCH MCHC RDW Lymph % (Auto) [place] % (Auto) Eos % (Auto) Lymph # [place] # Eos # Seg Neutrophils % Seg Neuts % (Manual) Lymphocytes % (Manual) Eosinophils % (Manual) Seg Neutrophils # Lymphocytes # (Manual) Eosinophils # (Manual) PT INR D-Dimer POC ABG pH POC ABG pCO2 POC ABG pO2 ABG pO2 ABG HCO3 ABG Base Excess ABG Hemoglobin Oxyhemoglobin Sodium Potassium Chloride Carbon Dioxide BUN Creatinine Glucose POC Glucose 132 H 147 H Calcium Phosphorus Magnesium ALT Alkaline Phosphatase Total Creatine Kinase CK-MB (CK-2) Rel Index Troponin T Albumin LDL Cholesterol Direct PTH Intact Salicylates Acetaminophen Crossmatch 03/23/19 03/24/19 03/24/19 17:31 01:22 04:20 WBC 12.2 H RBC 3.05 L Hgb 8.3 L Hct 25.9 L MCH 27 L MCHC RDW 18.7 H Lymph % (Auto) [place] % (Auto) Eos % (Auto) Lymph # [place] # Eos # Seg Neutrophils % Seg Neuts % (Manual) Lymphocytes % (Manual) Eosinophils % (Manual) Seg Neutrophils # Lymphocytes # (Manual) Eosinophils # (Manual) PT INR D-Dimer POC ABG pH POC ABG pCO2 POC ABG pO2 ABG pO2 ABG HCO3 ABG Base Excess ABG Hemoglobin Oxyhemoglobin Sodium Potassium Chloride Carbon Dioxide BUN Creatinine Glucose POC Glucose 182 H 113 H Calcium Phosphorus Magnesium ALT Alkaline Phosphatase Total Creatine Kinase CK-MB (CK-2) Rel Index Troponin T Albumin LDL Cholesterol Direct PTH Intact Salicylates Acetaminophen Crossmatch 03/24/19 03/24/19 03/24/19 04:20 11:59 18:14 WBC RBC Hgb Hct MCH MCHC RDW Lymph % (Auto) [place] % (Auto) Eos % (Auto) Lymph # [place] # Eos # Seg Neutrophils % Seg Neuts % (Manual) Lymphocytes % (Manual) Eosinophils % (Manual) Seg Neutrophils # Lymphocytes # (Manual) Eosinophils # (Manual) PT INR D-Dimer POC ABG pH POC ABG pCO2 POC ABG pO2 ABG pO2 ABG HCO3 ABG Base Excess ABG Hemoglobin Oxyhemoglobin Sodium Potassium Chloride 94.8 L Carbon Dioxide 32 H BUN 53 H Creatinine 2.3 H Glucose POC Glucose 163 H 134 H Calcium Phosphorus Magnesium ALT Alkaline Phosphatase Total Creatine Kinase CK-MB (CK-2) Rel Index Troponin T Albumin LDL Cholesterol Direct PTH Intact Salicylates Acetaminophen Crossmatch 03/24/19 03/25/19 03/25/19 23:15 05:52 12:02 WBC RBC Hgb Hct MCH MCHC RDW Lymph % (Auto) [place] % (Auto) Eos % (Auto) Lymph # [place] # Eos # Seg Neutrophils % Seg Neuts % (Manual) Lymphocytes % (Manual) Eosinophils % (Manual) Seg Neutrophils # Lymphocytes # (Manual) Eosinophils # (Manual) PT INR D-Dimer POC ABG pH POC ABG pCO2 POC ABG pO2 ABG pO2 ABG HCO3 ABG Base Excess ABG Hemoglobin Oxyhemoglobin Sodium Potassium Chloride Carbon Dioxide BUN Creatinine Glucose POC Glucose 129 H 123 H 125 H Calcium Phosphorus Magnesium ALT Alkaline Phosphatase Total Creatine Kinase CK-MB (CK-2) Rel Index Troponin T Albumin LDL Cholesterol Direct PTH Intact Salicylates Acetaminophen Crossmatch 03/25/19 03/26/19 03/26/19 17:27 00:30 05:35 WBC RBC 3.01 L Hgb 8.1 L Hct 25.7 L MCH 27 L MCHC RDW 19.2 H Lymph % (Auto) 11.4 L [place] % (Auto) Eos % (Auto) 8.0 H Lymph # 1.0 L [place] # Eos # 0.7 H Seg Neutrophils % 73.9 H Seg Neuts % (Manual) Lymphocytes % (Manual) Eosinophils % (Manual) Seg Neutrophils # Lymphocytes # (Manual) Eosinophils # (Manual) PT INR D-Dimer POC ABG pH POC ABG pCO2 POC ABG pO2 ABG pO2 ABG HCO3 ABG Base Excess ABG Hemoglobin Oxyhemoglobin Sodium Potassium Chloride Carbon Dioxide BUN Creatinine Glucose POC Glucose 130 H 129 H Calcium Phosphorus Magnesium ALT Alkaline Phosphatase Total Creatine Kinase CK-MB (CK-2) Rel Index Troponin T Albumin LDL Cholesterol Direct PTH Intact Salicylates Acetaminophen Crossmatch 03/26/19 03/26/19 03/26/19 05:35 05:45 12:16 WBC RBC Hgb Hct MCH MCHC RDW Lymph % (Auto) [place] % (Auto) Eos % (Auto) Lymph # [place] # Eos # Seg Neutrophils % Seg Neuts % (Manual) Lymphocytes % (Manual) Eosinophils % (Manual) Seg Neutrophils # Lymphocytes # (Manual) Eosinophils # (Manual) PT INR D-Dimer POC ABG pH POC ABG pCO2 POC ABG pO2 ABG pO2 ABG HCO3 ABG Base Excess ABG Hemoglobin Oxyhemoglobin Sodium Potassium Chloride 94.9 L Carbon Dioxide 31 H BUN 44 H Creatinine 2.0 H Glucose POC Glucose 118 H 107 H Calcium Phosphorus Magnesium ALT Alkaline Phosphatase Total Creatine Kinase CK-MB (CK-2) Rel Index Troponin T Albumin LDL Cholesterol Direct PTH Intact Salicylates Acetaminophen Crossmatch 03/26/19 03/27/19 03/27/19 17:56 00:36 05:37 WBC RBC Hgb Hct MCH MCHC RDW Lymph % (Auto) [place] % (Auto) Eos % (Auto) Lymph # [place] # Eos # Seg Neutrophils % Seg Neuts % (Manual) Lymphocytes % (Manual) Eosinophils % (Manual) Seg Neutrophils # Lymphocytes # (Manual) Eosinophils # (Manual) PT INR D-Dimer POC ABG pH POC ABG pCO2 POC ABG pO2 ABG pO2 ABG HCO3 ABG Base Excess ABG Hemoglobin Oxyhemoglobin Sodium Potassium Chloride Carbon Dioxide BUN Creatinine Glucose POC Glucose 107 H 110 H 122 H Calcium Phosphorus Magnesium ALT Alkaline Phosphatase Total Creatine Kinase CK-MB (CK-2) Rel Index Troponin T Albumin LDL Cholesterol Direct PTH Intact Salicylates Acetaminophen Crossmatch 03/27/19 03/27/19 03/28/19 11:22 18:00 05:17 WBC RBC Hgb Hct MCH MCHC RDW Lymph % (Auto) [place] % (Auto) Eos % (Auto) Lymph # [place] # Eos # Seg Neutrophils % Seg Neuts % (Manual) Lymphocytes % (Manual) Eosinophils % (Manual) Seg Neutrophils # Lymphocytes # (Manual) Eosinophils # (Manual) PT INR D-Dimer POC ABG pH POC ABG pCO2 POC ABG pO2 ABG pO2 ABG HCO3 ABG Base Excess ABG Hemoglobin Oxyhemoglobin Sodium Potassium Chloride Carbon Dioxide BUN Creatinine Glucose POC Glucose 120 H 111 H 107 H Calcium Phosphorus Magnesium ALT Alkaline Phosphatase Total Creatine Kinase CK-MB (CK-2) Rel Index Troponin T Albumin LDL Cholesterol Direct PTH Intact Salicylates Acetaminophen Crossmatch 03/28/19 03/28/19 03/29/19 12:27 18:08 05:47 WBC RBC Hgb Hct MCH MCHC RDW Lymph % (Auto) [place] % (Auto) Eos % (Auto) Lymph # [place] # Eos # Seg Neutrophils % Seg Neuts % (Manual) Lymphocytes % (Manual) Eosinophils % (Manual) Seg Neutrophils # Lymphocytes # (Manual) Eosinophils # (Manual) PT INR D-Dimer POC ABG pH POC ABG pCO2 POC ABG pO2 ABG pO2 ABG HCO3 ABG Base Excess ABG Hemoglobin Oxyhemoglobin Sodium Potassium Chloride Carbon Dioxide BUN Creatinine Glucose POC Glucose 114 H 121 H 112 H Calcium Phosphorus Magnesium ALT Alkaline Phosphatase Total Creatine Kinase CK-MB (CK-2) Rel Index Troponin T Albumin LDL Cholesterol Direct PTH Intact Salicylates Acetaminophen Crossmatch 03/29/19 03/29/19 03/30/19 12:14 18:08 00:31 WBC RBC Hgb Hct MCH MCHC RDW Lymph % (Auto) [place] % (Auto) Eos % (Auto) Lymph # [place] # Eos # Seg Neutrophils % Seg Neuts % (Manual) Lymphocytes % (Manual) Eosinophils % (Manual) Seg Neutrophils # Lymphocytes # (Manual) Eosinophils # (Manual) PT INR D-Dimer POC ABG pH POC ABG pCO2 POC ABG pO2 ABG pO2 ABG HCO3 ABG Base Excess ABG Hemoglobin Oxyhemoglobin Sodium Potassium Chloride Carbon Dioxide BUN Creatinine Glucose POC Glucose 117 H 140 H 114 H Calcium Phosphorus Magnesium ALT Alkaline Phosphatase Total Creatine Kinase CK-MB (CK-2) Rel Index Troponin T Albumin LDL Cholesterol Direct PTH Intact Salicylates Acetaminophen Crossmatch 03/30/19 03/30/19 03/30/19 10:13 10:13 23:53 WBC RBC 2.81 L Hgb 7.7 L Hct 24.3 L MCH 27 L MCHC RDW 19.0 H Lymph % (Auto) 12.2 L [place] % (Auto) Eos % (Auto) 7.9 H Lymph # 1.0 L [place] # Eos # 0.6 H Seg Neutrophils % 72.3 H Seg Neuts % (Manual) Lymphocytes % (Manual) Eosinophils % (Manual) Seg Neutrophils # Lymphocytes # (Manual) Eosinophils # (Manual) PT INR D-Dimer POC ABG pH POC ABG pCO2 POC ABG pO2 ABG pO2 ABG HCO3 ABG Base Excess ABG Hemoglobin Oxyhemoglobin Sodium Potassium 5.1 H Chloride 96.5 L Carbon Dioxide BUN 73 H Creatinine 3.9 H D Glucose POC Glucose 114 H Calcium 10.3 H Phosphorus 6.30 H Magnesium 2.70 H ALT Alkaline Phosphatase 185 H Total Creatine Kinase CK-MB (CK-2) Rel Index Troponin T Albumin 2.6 L LDL Cholesterol Direct PTH Intact Salicylates Acetaminophen Crossmatch 03/31/19 03/31/19 03/31/19 05:45 10:26 10:26 WBC RBC 3.01 L Hgb 8.2 L Hct 26.4 L MCH 27 L MCHC 31 L RDW 20.3 H Lymph % (Auto) 13.3 L [place] % (Auto) Eos % (Auto) 7.2 H Lymph # 1.1 L [place] # Eos # 0.6 H Seg Neutrophils % 72.1 H Seg Neuts % (Manual) Lymphocytes % (Manual) Eosinophils % (Manual) Seg Neutrophils # Lymphocytes # (Manual) Eosinophils # (Manual) PT INR D-Dimer POC ABG pH POC ABG pCO2 POC ABG pO2 ABG pO2 ABG HCO3 ABG Base Excess ABG Hemoglobin Oxyhemoglobin Sodium Potassium Chloride 96.9 L Carbon Dioxide 33 H BUN 37 H Creatinine 2.4 H Glucose POC Glucose 108 H Calcium 10.3 H Phosphorus Magnesium ALT Alkaline Phosphatase Total Creatine Kinase CK-MB (CK-2) Rel Index Troponin T Albumin LDL Cholesterol Direct PTH Intact Salicylates Acetaminophen Crossmatch 03/31/19 04/01/19 04/01/19 12:38 05:48 12:06 WBC RBC Hgb Hct MCH MCHC RDW Lymph % (Auto) [place] % (Auto) Eos % (Auto) Lymph # [place] # Eos # Seg Neutrophils % Seg Neuts % (Manual) Lymphocytes % (Manual) Eosinophils % (Manual) Seg Neutrophils # Lymphocytes # (Manual) Eosinophils # (Manual) PT INR D-Dimer POC ABG pH POC ABG pCO2 POC ABG pO2 ABG pO2 ABG HCO3 ABG Base Excess ABG Hemoglobin Oxyhemoglobin Sodium Potassium Chloride Carbon Dioxide BUN Creatinine Glucose POC Glucose 108 H 114 H 111 H Calcium Phosphorus Magnesium ALT Alkaline Phosphatase Total Creatine Kinase CK-MB (CK-2) Rel Index Troponin T Albumin LDL Cholesterol Direct PTH Intact Salicylates Acetaminophen Crossmatch 04/01/19 04/02/19 04/04/19 18:24 00:36 23:55 WBC RBC Hgb Hct MCH MCHC RDW Lymph % (Auto) [place] % (Auto) Eos % (Auto) Lymph # [place] # Eos # Seg Neutrophils % Seg Neuts % (Manual) Lymphocytes % (Manual) Eosinophils % (Manual) Seg Neutrophils # Lymphocytes # (Manual) Eosinophils # (Manual) PT INR D-Dimer POC ABG pH POC ABG pCO2 POC ABG pO2 ABG pO2 ABG HCO3 ABG Base Excess ABG Hemoglobin Oxyhemoglobin Sodium Potassium Chloride Carbon Dioxide BUN Creatinine Glucose POC Glucose 113 H 117 H 109 H Calcium Phosphorus Magnesium ALT Alkaline Phosphatase Total Creatine Kinase CK-MB (CK-2) Rel Index Troponin T Albumin LDL Cholesterol Direct PTH Intact Salicylates Acetaminophen Crossmatch 04/06/19 04/06/19 04/06/19 00:11 06:02 23:30 WBC RBC Hgb Hct MCH MCHC RDW Lymph % (Auto) [place] % (Auto) Eos % (Auto) Lymph # [place] # Eos # Seg Neutrophils % Seg Neuts % (Manual) Lymphocytes % (Manual) Eosinophils % (Manual) Seg Neutrophils # Lymphocytes # (Manual) Eosinophils # (Manual) PT INR D-Dimer POC ABG pH POC ABG pCO2 POC ABG pO2 ABG pO2 ABG HCO3 ABG Base Excess ABG Hemoglobin Oxyhemoglobin Sodium Potassium Chloride Carbon Dioxide BUN Creatinine Glucose POC Glucose 116 H 112 H 112 H Calcium Phosphorus Magnesium ALT Alkaline Phosphatase Total Creatine Kinase CK-MB (CK-2) Rel Index Troponin T Albumin LDL Cholesterol Direct PTH Intact Salicylates Acetaminophen Crossmatch 04/08/19 04/08/19 04/08/19 02:23 06:19 13:01 WBC RBC Hgb Hct MCH MCHC RDW Lymph % (Auto) [place] % (Auto) Eos % (Auto) Lymph # [place] # Eos # Seg Neutrophils % Seg Neuts % (Manual) Lymphocytes % (Manual) Eosinophils % (Manual) Seg Neutrophils # Lymphocytes # (Manual) Eosinophils # (Manual) PT INR D-Dimer POC ABG pH POC ABG pCO2 POC ABG pO2 ABG pO2 ABG HCO3 ABG Base Excess ABG Hemoglobin Oxyhemoglobin Sodium Potassium Chloride Carbon Dioxide BUN Creatinine Glucose POC Glucose 144 H 126 H 118 H Calcium Phosphorus Magnesium ALT Alkaline Phosphatase Total Creatine Kinase CK-MB (CK-2) Rel Index Troponin T Albumin LDL Cholesterol Direct PTH Intact Salicylates Acetaminophen Crossmatch 04/08/19 04/09/19 04/10/19 23:28 05:52 06:34 WBC RBC Hgb Hct MCH MCHC RDW Lymph % (Auto) [place] % (Auto) Eos % (Auto) Lymph # [place] # Eos # Seg Neutrophils % Seg Neuts % (Manual) Lymphocytes % (Manual) Eosinophils % (Manual) Seg Neutrophils # Lymphocytes # (Manual) Eosinophils # (Manual) PT INR D-Dimer POC ABG pH POC ABG pCO2 POC ABG pO2 ABG pO2 ABG HCO3 ABG Base Excess ABG Hemoglobin Oxyhemoglobin Sodium Potassium Chloride Carbon Dioxide BUN Creatinine Glucose POC Glucose 119 H 116 H 114 H Calcium Phosphorus Magnesium ALT Alkaline Phosphatase Total Creatine Kinase CK-MB (CK-2) Rel Index Troponin T Albumin LDL Cholesterol Direct PTH Intact Salicylates Acetaminophen Crossmatch 04/10/19 04/10/19 04/11/19 12:34 18:59 00:36 WBC RBC Hgb Hct MCH MCHC RDW Lymph % (Auto) [place] % (Auto) Eos % (Auto) Lymph # [place] # Eos # Seg Neutrophils % Seg Neuts % (Manual) Lymphocytes % (Manual) Eosinophils % (Manual) Seg Neutrophils # Lymphocytes # (Manual) Eosinophils # (Manual) PT INR D-Dimer POC ABG pH POC ABG pCO2 POC ABG pO2 ABG pO2 ABG HCO3 ABG Base Excess ABG Hemoglobin Oxyhemoglobin Sodium Potassium Chloride Carbon Dioxide BUN Creatinine Glucose POC Glucose 112 H 109 H 124 H Calcium Phosphorus Magnesium ALT Alkaline Phosphatase Total Creatine Kinase CK-MB (CK-2) Rel Index Troponin T Albumin LDL Cholesterol Direct PTH Intact Salicylates Acetaminophen Crossmatch 04/11/19 04/11/19 04/12/19 08:01 17:25 02:18 WBC RBC Hgb Hct MCH MCHC RDW Lymph % (Auto) [place] % (Auto) Eos % (Auto) Lymph # [place] # Eos # Seg Neutrophils % Seg Neuts % (Manual) Lymphocytes % (Manual) Eosinophils % (Manual) Seg Neutrophils # Lymphocytes # (Manual) Eosinophils # (Manual) PT INR D-Dimer POC ABG pH POC ABG pCO2 POC ABG pO2 ABG pO2 ABG HCO3 ABG Base Excess ABG Hemoglobin Oxyhemoglobin Sodium Potassium Chloride Carbon Dioxide BUN Creatinine Glucose POC Glucose 118 H 106 H 125 H Calcium Phosphorus Magnesium ALT Alkaline Phosphatase Total Creatine Kinase CK-MB (CK-2) Rel Index Troponin T Albumin LDL Cholesterol Direct PTH Intact Salicylates Acetaminophen Crossmatch 04/12/19 04/12/19 04/12/19 06:24 12:22 17:13 WBC RBC Hgb Hct MCH MCHC RDW Lymph % (Auto) [place] % (Auto) Eos % (Auto) Lymph # [place] # Eos # Seg Neutrophils % Seg Neuts % (Manual) Lymphocytes % (Manual) Eosinophils % (Manual) Seg Neutrophils # Lymphocytes # (Manual) Eosinophils # (Manual) PT INR D-Dimer POC ABG pH POC ABG pCO2 POC ABG pO2 ABG pO2 ABG HCO3 ABG Base Excess ABG Hemoglobin Oxyhemoglobin Sodium Potassium Chloride Carbon Dioxide BUN Creatinine Glucose POC Glucose 128 H 114 H 110 H Calcium Phosphorus Magnesium ALT Alkaline Phosphatase Total Creatine Kinase CK-MB (CK-2) Rel Index Troponin T Albumin LDL Cholesterol Direct PTH Intact Salicylates Acetaminophen Crossmatch 04/13/19 04/13/19 04/13/19 06:59 07:31 07:31 WBC RBC 3.34 L Hgb 8.9 L Hct 28.6 L MCH 27 L MCHC 31 L RDW 19.6 H Lymph % (Auto) [place] % (Auto) Eos % (Auto) Lymph # [place] # Eos # Seg Neutrophils % Seg Neuts % (Manual) Lymphocytes % (Manual) Eosinophils % (Manual) Seg Neutrophils # Lymphocytes # (Manual) Eosinophils # (Manual) PT INR D-Dimer POC ABG pH POC ABG pCO2 POC ABG pO2 ABG pO2 ABG HCO3 ABG Base Excess ABG Hemoglobin Oxyhemoglobin Sodium Potassium Chloride 96.4 L Carbon Dioxide 33 H BUN 66 H Creatinine 4.5 H Glucose 103 H POC Glucose 107 H Calcium Phosphorus Magnesium ALT Alkaline Phosphatase Total Creatine Kinase CK-MB (CK-2) Rel Index Troponin T Albumin LDL Cholesterol Direct PTH Intact Salicylates Acetaminophen Crossmatch 04/13/19 04/14/19 04/14/19 23:43 05:50 13:07 WBC RBC Hgb Hct MCH MCHC RDW Lymph % (Auto) [place] % (Auto) Eos % (Auto) Lymph # [place] # Eos # Seg Neutrophils % Seg Neuts % (Manual) Lymphocytes % (Manual) Eosinophils % (Manual) Seg Neutrophils # Lymphocytes # (Manual) Eosinophils # (Manual) PT INR D-Dimer POC ABG pH POC ABG pCO2 POC ABG pO2 ABG pO2 ABG HCO3 ABG Base Excess ABG Hemoglobin Oxyhemoglobin Sodium Potassium Chloride Carbon Dioxide BUN Creatinine Glucose POC Glucose 119 H 112 H 112 H Calcium Phosphorus Magnesium ALT Alkaline Phosphatase Total Creatine Kinase CK-MB (CK-2) Rel Index Troponin T Albumin LDL Cholesterol Direct PTH Intact Salicylates Acetaminophen Crossmatch 04/14/19 04/15/19 04/15/19 18:35 01:18 05:17 WBC RBC Hgb Hct MCH MCHC RDW Lymph % (Auto) [place] % (Auto) Eos % (Auto) Lymph # [place] # Eos # Seg Neutrophils % Seg Neuts % (Manual) Lymphocytes % (Manual) Eosinophils % (Manual) Seg Neutrophils # Lymphocytes # (Manual) Eosinophils # (Manual) PT INR D-Dimer POC ABG pH POC ABG pCO2 POC ABG pO2 ABG pO2 ABG HCO3 ABG Base Excess ABG Hemoglobin Oxyhemoglobin Sodium Potassium Chloride Carbon Dioxide BUN Creatinine Glucose POC Glucose 114 H 114 H 114 H Calcium Phosphorus Magnesium ALT Alkaline Phosphatase Total Creatine Kinase CK-MB (CK-2) Rel Index Troponin T Albumin LDL Cholesterol Direct PTH Intact Salicylates Acetaminophen Crossmatch 04/15/19 04/15/19 04/16/19 11:50 23:39 05:41 WBC RBC Hgb Hct MCH MCHC RDW Lymph % (Auto) [place] % (Auto) Eos % (Auto) Lymph # [place] # Eos # Seg Neutrophils % Seg Neuts % (Manual) Lymphocytes % (Manual) Eosinophils % (Manual) Seg Neutrophils # Lymphocytes # (Manual) Eosinophils # (Manual) PT INR D-Dimer POC ABG pH POC ABG pCO2 POC ABG pO2 ABG pO2 ABG HCO3 ABG Base Excess ABG Hemoglobin Oxyhemoglobin Sodium Potassium Chloride Carbon Dioxide BUN Creatinine Glucose POC Glucose 109 H 115 H 125 H Calcium Phosphorus Magnesium ALT Alkaline Phosphatase Total Creatine Kinase CK-MB (CK-2) Rel Index Troponin T Albumin LDL Cholesterol Direct PTH Intact Salicylates Acetaminophen Crossmatch 04/16/19 04/17/19 04/17/19 12:53 01:00 12:38 WBC RBC Hgb Hct MCH MCHC RDW Lymph % (Auto) [place] % (Auto) Eos % (Auto) Lymph # [place] # Eos # Seg Neutrophils % Seg Neuts % (Manual) Lymphocytes % (Manual) Eosinophils % (Manual) Seg Neutrophils # Lymphocytes # (Manual) Eosinophils # (Manual) PT INR D-Dimer POC ABG pH POC ABG pCO2 POC ABG pO2 ABG pO2 ABG HCO3 ABG Base Excess ABG Hemoglobin Oxyhemoglobin Sodium Potassium Chloride Carbon Dioxide BUN Creatinine Glucose POC Glucose 121 H 127 H 159 H Calcium Phosphorus Magnesium ALT Alkaline Phosphatase Total Creatine Kinase CK-MB (CK-2) Rel Index Troponin T Albumin LDL Cholesterol Direct PTH Intact Salicylates Acetaminophen Crossmatch 04/17/19 04/17/19 04/18/19 18:27 23:36 07:19 WBC RBC 3.49 L Hgb 9.0 L Hct 29.9 L MCH 26 L MCHC 30 L RDW 20.0 H Lymph % (Auto) [place] % (Auto) Eos % (Auto) Lymph # [place] # Eos # Seg Neutrophils % Seg Neuts % (Manual) Lymphocytes % (Manual) Eosinophils % (Manual) Seg Neutrophils # Lymphocytes # (Manual) Eosinophils # (Manual) PT INR D-Dimer POC ABG pH POC ABG pCO2 POC ABG pO2 ABG pO2 ABG HCO3 ABG Base Excess ABG Hemoglobin Oxyhemoglobin Sodium Potassium Chloride Carbon Dioxide BUN Creatinine Glucose POC Glucose 109 H 134 H Calcium Phosphorus Magnesium ALT Alkaline Phosphatase Total Creatine Kinase CK-MB (CK-2) Rel Index Troponin T Albumin LDL Cholesterol Direct PTH Intact Salicylates Acetaminophen Crossmatch 04/18/19 04/18/19 04/18/19 07:19 12:16 17:09 WBC RBC Hgb Hct MCH MCHC RDW Lymph % (Auto) [place] % (Auto) Eos % (Auto) Lymph # [place] # Eos # Seg Neutrophils % Seg Neuts % (Manual) Lymphocytes % (Manual) Eosinophils % (Manual) Seg Neutrophils # Lymphocytes # (Manual) Eosinophils # (Manual) PT INR D-Dimer POC ABG pH POC ABG pCO2 POC ABG pO2 ABG pO2 ABG HCO3 ABG Base Excess ABG Hemoglobin Oxyhemoglobin Sodium Potassium Chloride Carbon Dioxide BUN 41 H Creatinine 2.9 H Glucose 122 H POC Glucose 125 H 131 H Calcium Phosphorus Magnesium ALT Alkaline Phosphatase Total Creatine Kinase CK-MB (CK-2) Rel Index Troponin T Albumin LDL Cholesterol Direct PTH Intact Salicylates Acetaminophen Crossmatch 04/18/19 04/19/19 04/19/19 23:57 05:55 11:35 WBC RBC Hgb Hct MCH MCHC RDW Lymph % (Auto) [place] % (Auto) Eos % (Auto) Lymph # [place] # Eos # Seg Neutrophils % Seg Neuts % (Manual) Lymphocytes % (Manual) Eosinophils % (Manual) Seg Neutrophils # Lymphocytes # (Manual) Eosinophils # (Manual) PT INR D-Dimer POC ABG pH POC ABG pCO2 POC ABG pO2 ABG pO2 ABG HCO3 ABG Base Excess ABG Hemoglobin Oxyhemoglobin Sodium Potassium Chloride Carbon Dioxide BUN Creatinine Glucose POC Glucose 159 H 144 H 177 H Calcium Phosphorus Magnesium ALT Alkaline Phosphatase Total Creatine Kinase CK-MB (CK-2) Rel Index Troponin T Albumin LDL Cholesterol Direct PTH Intact Salicylates Acetaminophen Crossmatch 04/19/19 04/20/19 04/20/19 16:36 02:05 06:28 WBC RBC Hgb Hct MCH MCHC RDW Lymph % (Auto) [place] % (Auto) Eos % (Auto) Lymph # [place] # Eos # Seg Neutrophils % Seg Neuts % (Manual) Lymphocytes % (Manual) Eosinophils % (Manual) Seg Neutrophils # Lymphocytes # (Manual) Eosinophils # (Manual) PT INR D-Dimer POC ABG pH POC ABG pCO2 POC ABG pO2 ABG pO2 ABG HCO3 ABG Base Excess ABG Hemoglobin Oxyhemoglobin Sodium Potassium Chloride Carbon Dioxide BUN Creatinine Glucose POC Glucose 134 H 142 H 132 H Calcium Phosphorus Magnesium ALT Alkaline Phosphatase Total Creatine Kinase CK-MB (CK-2) Rel Index Troponin T Albumin LDL Cholesterol Direct PTH Intact Salicylates Acetaminophen Crossmatch 04/20/19 04/20/19 04/21/19 12:37 23:34 05:59 WBC RBC Hgb Hct MCH MCHC RDW Lymph % (Auto) [place] % (Auto) Eos % (Auto) Lymph # [place] # Eos # Seg Neutrophils % Seg Neuts % (Manual) Lymphocytes % (Manual) Eosinophils % (Manual) Seg Neutrophils # Lymphocytes # (Manual) Eosinophils # (Manual) PT INR D-Dimer POC ABG pH POC ABG pCO2 POC ABG pO2 ABG pO2 ABG HCO3 ABG Base Excess ABG Hemoglobin Oxyhemoglobin Sodium Potassium Chloride Carbon Dioxide BUN Creatinine Glucose POC Glucose 163 H 166 H 140 H Calcium Phosphorus Magnesium ALT Alkaline Phosphatase Total Creatine Kinase CK-MB (CK-2) Rel Index Troponin T Albumin LDL Cholesterol Direct PTH Intact Salicylates Acetaminophen Crossmatch 04/21/19 04/21/19 04/21/19 12:07 17:22 23:43 WBC RBC Hgb Hct MCH MCHC RDW Lymph % (Auto) [place] % (Auto) Eos % (Auto) Lymph # [place] # Eos # Seg Neutrophils % Seg Neuts % (Manual) Lymphocytes % (Manual) Eosinophils % (Manual) Seg Neutrophils # Lymphocytes # (Manual) Eosinophils # (Manual) PT INR D-Dimer POC ABG pH POC ABG pCO2 POC ABG pO2 ABG pO2 ABG HCO3 ABG Base Excess ABG Hemoglobin Oxyhemoglobin Sodium Potassium Chloride Carbon Dioxide BUN Creatinine Glucose POC Glucose 135 H 141 H 138 H Calcium Phosphorus Magnesium ALT Alkaline Phosphatase Total Creatine Kinase CK-MB (CK-2) Rel Index Troponin T Albumin LDL Cholesterol Direct PTH Intact Salicylates Acetaminophen Crossmatch 04/22/19 04/22/19 04/22/19 05:12 18:24 23:49 WBC RBC Hgb Hct MCH MCHC RDW Lymph % (Auto) [place] % (Auto) Eos % (Auto) Lymph # [place] # Eos # Seg Neutrophils % Seg Neuts % (Manual) Lymphocytes % (Manual) Eosinophils % (Manual) Seg Neutrophils # Lymphocytes # (Manual) Eosinophils # (Manual) PT INR D-Dimer POC ABG pH POC ABG pCO2 POC ABG pO2 ABG pO2 ABG HCO3 ABG Base Excess ABG Hemoglobin Oxyhemoglobin Sodium Potassium Chloride Carbon Dioxide BUN Creatinine Glucose POC Glucose 141 H 137 H 142 H Calcium Phosphorus Magnesium ALT Alkaline Phosphatase Total Creatine Kinase CK-MB (CK-2) Rel Index Troponin T Albumin LDL Cholesterol Direct PTH Intact Salicylates Acetaminophen Crossmatch 04/23/19 04/23/19 04/23/19 05:53 08:13 11:58 WBC RBC Hgb Hct MCH MCHC RDW Lymph % (Auto) [place] % (Auto) Eos % (Auto) Lymph # [place] # Eos # Seg Neutrophils % Seg Neuts % (Manual) Lymphocytes % (Manual) Eosinophils % (Manual) Seg Neutrophils # Lymphocytes # (Manual) Eosinophils # (Manual) PT INR D-Dimer POC ABG pH POC ABG pCO2 POC ABG pO2 ABG pO2 ABG HCO3 ABG Base Excess ABG Hemoglobin Oxyhemoglobin Sodium Potassium Chloride Carbon Dioxide BUN Creatinine Glucose POC Glucose 132 H 154 H 165 H Calcium Phosphorus Magnesium ALT Alkaline Phosphatase Total Creatine Kinase CK-MB (CK-2) Rel Index Troponin T Albumin LDL Cholesterol Direct PTH Intact Salicylates Acetaminophen Crossmatch 04/23/19 04/24/19 04/24/19 16:28 00:28 07:00 WBC RBC Hgb Hct MCH MCHC RDW Lymph % (Auto) [place] % (Auto) Eos % (Auto) Lymph # [place] # Eos # Seg Neutrophils % Seg Neuts % (Manual) Lymphocytes % (Manual) Eosinophils % (Manual) Seg Neutrophils # Lymphocytes # (Manual) Eosinophils # (Manual) PT INR D-Dimer POC ABG pH POC ABG pCO2 POC ABG pO2 ABG pO2 ABG HCO3 ABG Base Excess ABG Hemoglobin Oxyhemoglobin Sodium Potassium Chloride Carbon Dioxide BUN Creatinine Glucose POC Glucose 136 H 140 H 141 H Calcium Phosphorus Magnesium ALT Alkaline Phosphatase Total Creatine Kinase CK-MB (CK-2) Rel Index Troponin T Albumin LDL Cholesterol Direct PTH Intact Salicylates Acetaminophen Crossmatch
[2019-04-24] MEDS: EPOETIN ALFA 20,000 UNIT/1 ML INJ IV PRN (15:34)
--- NOTE | 2019-04-24 15:53 | Progress Note ---
Assessment and Plan - Patient Problems (1) ESRD (end stage renal disease) on dialysis Current Visit: Yes Status: Chronic Plan to address problem: End stage renal disease : - access: Left arm AVG Continue hemodialysis Saturday (2) Diabetes mellitus, insulin dependent (IDDM), uncontrolled Current Visit: No Status: Acute Plan to address problem: DM type II uncontrolled Monitor Fingersticks (3) Anemia in chronic kidney disease, on chronic dialysis Current Visit: Yes Status: Acute Plan to address problem: Anemia of chronic kidney disease hemoglobin 9.0g/dl We'll give Epogen Monitor CBC (4) Hypertension Current Visit: Yes Status: Acute Qualifiers: Hypertension type: essential hypertension Qualified Code(s): I10 - Essential (primary) hypertension Plan to address problem: Hypertension controlled currently on Prn antihypertensives. Monitor blood pressure (5) Acute hypoxemic respiratory failure Current Visit: Yes Status: Acute Plan to address problem: Patient has tracheostomy with Tpiece in place. Chest x-ray reviewed with patchy opacities upper lung lynn Cultures obtained with Acinetobacter completed treatment with antibiotics. Ultrafiltration limited by hypotension repeat CXR with improvement in lung aeration. Subjective Principal diagnosis: Respiratory failure, acute on chronic systolic HF, ESRD Interval history: 63 year old Gentleman with medical history significant for ESRD on hemodialysis at [facility] on Saturday, Saturday and Saturday. via a left arm AVG admitted with acute respiratory failure; and hypotension prolonged hospital course received antibiotics for acinetobacter infection and s/p prolonged need for ventilation requiring Tracheostomy with T piece attached. Patient seen today remains on a T piece apparatus has audible secretions respiratory therapy to suction patient. I ATTEST I SAW the patient on HD Objective - Vital Signs Vital signs: Vital Signs - 12hr 04/24/19 04/24/19 04/24/19 04:12 04:18 08:07 Temperature 98.4 F Pulse Rate 102 H Pulse Rate [ 101 H Anterior Bilateral Throughout] Respiratory 18 Rate Respiratory 20 Rate [Anterior Bilateral Throughout] Blood Pressure 144/55 O2 Sat by Pulse 96 97 Oximetry O2 Sat by Pulse 98 97 Oximetry [ Assessment] 04/24/19 04/24/19 04/24/19 10:00 12:30 12:33 Temperature 98.4 F Pulse Rate 101 H 100 H 101 H Pulse Rate [ Anterior Bilateral Throughout] Respiratory 18 Rate Respiratory Rate [Anterior Bilateral Throughout] Blood Pressure 129/68 122/65 O2 Sat by Pulse Oximetry O2 Sat by Pulse Oximetry [ Assessment] 04/24/19 04/24/19 04/24/19 12:45 13:00 13:15 Temperature Pulse Rate 107 H 81 100 H Pulse Rate [ Anterior Bilateral Throughout] Respiratory Rate Respiratory Rate [Anterior Bilateral Throughout] Blood Pressure 122/65 115/68 138/69 O2 Sat by Pulse Oximetry O2 Sat by Pulse Oximetry [ Assessment] 04/24/19 04/24/19 04/24/19 13:30 13:45 14:00 Temperature Pulse Rate 68 95 H 95 H Pulse Rate [ Anterior Bilateral Throughout] Respiratory Rate Respiratory Rate [Anterior Bilateral Throughout] Blood Pressure 119/73 106/42 137/62 O2 Sat by Pulse Oximetry O2 Sat by Pulse Oximetry [ Assessment] 04/24/19 04/24/19 04/24/19 14:15 14:30 14:45 Temperature Pulse Rate 85 104 H 94 H Pulse Rate [ Anterior Bilateral Throughout] Respiratory Rate Respiratory Rate [Anterior Bilateral Throughout] Blood Pressure 93/29 125/62 124/66 O2 Sat by Pulse Oximetry O2 Sat by Pulse Oximetry [ Assessment] 04/24/19 04/24/19 04/24/19 15:00 15:15 15:30 Temperature Pulse Rate 98 H 55 L 80 Pulse Rate [ Anterior Bilateral Throughout] Respiratory Rate Respiratory Rate [Anterior Bilateral Throughout] Blood Pressure 103/67 99/49 121/62 O2 Sat by Pulse Oximetry O2 Sat by Pulse Oximetry [ Assessment] 04/24/19 15:40 Temperature 98.4 F Pulse Rate 105 H Pulse Rate [ Anterior Bilateral Throughout] Respiratory 18 Rate Respiratory Rate [Anterior Bilateral Throughout] Blood Pressure 143/62 O2 Sat by Pulse Oximetry O2 Sat by Pulse Oximetry [ Assessment] - General Appearance General appearance: well-developed, well-nourished EENT: ATNC, PERRL, mucous membranes moist Neck: no JVD Respiratory: Present: Clear to Ascultation Cardiology: regular, S1S2 Gastrointestinal: normal, normoactive bowel sounds Integumentary: no rash Neurologic: alert and oriented x3, CN 3-12 intact Psychiatric: mood/affect appropriate - Lab 04/18/19 07:19 04/18/19 07:19 Most recent lab results ABG pH 7.424 pH Units (7.350-7.450) 03/19/19 04:23 ABG pCO2 48.0 mm Hg 03/19/19 04:23 ABG pO2 78.3 mm Hg (80.0-90.0) L 03/19/19 04:23 ABG HCO3 30.7 mmol/L (20.0-26.0) H 03/19/19 04:23 ABG O2 Saturation 97.0 % (95.0-99.0) 03/19/19 04:23 Calcium 10.1 mg/dL (8.4-10.2) 04/18/19 07:19 Phosphorus 4.30 mg/dL (2.5-4.5) D 03/31/19 10:26 Magnesium 2.70 mg/dL (1.7-2.3) H 03/30/19 10:13 - Imaging Chest x-ray: image reviewed (I reviewed chest x-ray with improvement in lung ae ration) Medications & Allergies - Medications Allergies/Adverse Reactions: Allergies haloperidol [From Haldol] Adverse Reaction (Verified 03/13/18 12:10) Unknown haloperidol lactate [From Haldol] Adverse Reaction (Verified 03/13/18 12:10) Unknown Home Medications: Home Medications Medication Instructions Recorded Confirmed Last Taken Type risperiDONE [RisperDAL] 1 mg PO QAM 03/13/18 02/21/19 Unknown History Sertraline [Zoloft] 100 mg PO QDAY 08/26/18 02/21/19 Unknown History Polyethylene Glycol 3350 [Miralax 17 gm PO QDAY #30 packet 11/05/18 02/21/19 Unknown Rx 3350] Aspirin EC [Halfprin EC] 81 mg PO DAILY #30 11/19/18 02/21/19 Unknown Rx Docusate Sodium [Colace CAP] 100 mg PO BID #60 11/19/18 02/21/19 Unknown Rx Folic Acid [Folvite] 1 mg PO DAILY #30 tab 11/19/18 02/21/19 Unknown Rx Famotidine [Pepcid] 20 mg PO DAILY tablet 12/08/18 02/21/19 Unknown Rx Gabapentin [Neurontin] 100 mg PO QHS capsule 12/08/18 02/21/19 Unknown Rx Metoprolol [Lopressor TAB] 50 mg PO BID 30 Days tablet 12/08/18 02/21/19 Unknown Rx Sevelamer Carbonate [Renvela] 800 mg PO TIDWM tablet 12/08/18 02/21/19 Unknown Rx hydrALAZINE [Apresoline TAB] 100 mg PO Q8HR #120 tablet 12/08/18 02/21/19 Unknown Rx Acetaminophen [Acetaminophen TAB] 650 mg PO Q12H PRN 12/15/18 02/21/19 Unknown History Glucagon,Human Recombinant 1 mg IJ Q15MIN PRN 12/15/18 02/21/19 Unknown History [Glucagon Emergency Kit] Insulin Aspart [NovoLOG 100 See Protocol SQ QWEEK 12/15/18 02/21/19 Unknown History UNITS/ML VIAL] Active Medications: Generic Name Dose Route Start Last Admin Trade Name Freq PRN Reason Stop Dose Admin Albuterol/Ipratropium 1 ampul 02/24/19 20:00 04/24/19 14:48 Duoneb *Not For Prn Use* IH Not Given TIDRT SANCHEZ Lipase/Protease/Amylase 1 each 04/10/19 15:[address] 10,500 Unit FEEDTUBE PRN PRN For Clogged Feeding Tube Epoetin Solitario 20,000 unit 03/24/19 11:17 04/24/19 15:34 Procrit IV 20,000 unit UMA PRN Administration hemodialysis Famotidine 20 mg 02/23/19 10:00 04/24/19 09:09 Pepcid PO 20 mg DAILY SANCHEZ Administration Sodium Chloride 100 mls @ 999 mls/hr 02/26/19 09:00 Nacl 0.9% IV UMA PRN Hypotension Insulin Human Regular 0 units 02/26/19 12:00 04/24/19 12:46 Humulin R SUB-Q 1 units Q6HR SANCHEZ Administration Protocol Metoprolol Tartrate 2.5 mg 02/28/19 12:06 03/15/19 05:15 Lopressor IV 2.5 mg Q4HR PRN Administration Tachycardia Risperidone 1 mg 02/25/19 13:00 04/24/19 09:09 Risperdal PO 1 mg DAILY SANCHEZ Administration Sertraline HCl 100 mg 02/25/19 13:00 04/24/19 09:09 Zoloft PO 100 mg DAILY SANCHEZ Administration Simple Syrup 15 ml 04/10/19 15:16 Simple Syrup FEEDTUBE PRN PRN Hypoglycemia Simple Syrup 30 ml 04/10/19 15:16 Simple Syrup FEEDTUBE PRN PRN Hypoglycemia Sodium Bicarbonate 325 mg 04/10/19 15:16 Sodium Bicarbonate FEEDTUBE PRN PRN For Clogged Feeding Tube Sodium Hypochlorite 1 applic 04/01/19 13:00 04/24/19 09:09 Dakin's Half Strength TP 1 applicatio BID SANCHEZ Administration
[2019-04-24] MEDS ORDERED: EPOETIN ALFA 20,000 UNIT/1 ML INJ IV PRN (16:30)
[2019-04-25] MEDS: INSULIN REGULAR, HUMAN 100 UNITS/1 ML SUB-Q SCH ×4 (00:30→18:33)
[2019-04-25] MEDS: IPRATROPIUM/ALBUTEROL SULFATE 3 ML AMPUL.NEB IH SCH ×3 (08:04→20:43)
--- NOTE | 2019-04-25 09:13 | Progress Note ---
Assessment and Plan Assessment and plan: Acute respiratory failure Trach placed on 03/03/19 Trach collar per pulmonary if tolerated. Also PMV attempted yesterday. Pulm following. Aspiration precautions Acute pulmonary edema, resolved Continue with Dialysis Necrotizing Unstagable sacral decubitus ulcer with osteomyelitis Wound care Dilated CMP Cardiomyiopathy EF 35-40% Continue hemodialysis PPM/ICD Acute encephalopathy, probably metabolic or toxic Continues on Mechanical ventilator. ESRD on hemodialysis nephrology following Vascular eval. 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 -Pt is s/p x1 DDVAP DVT prophylaxis Lovenox DNR poor prognosis Disposition: Awaiting on placement History Interval history: Patient is 63-year-old -[place] male patient from [facility] with multiple co-morbidities including blindness, CVA, CHF, PPM/ICD, loop recorder since 2012 that is MRI compatible, IDDM type 2, sepsis left foot ulcer, afib, ESRD with complications on HD TTS, hypertension, AOCD and GERD who presented to the ED with hypotensive after intubation in the emergency room. diagnosed with fluid overload, pleural effusion. Patient has had recurrent admission in the hospital for similar reason and was recently discharged from the hospital following treatment of Severe Sepsis due to Necrotizing Unstagable sacral decubitus ulcer with ostemomylitis, has received multiple courses of broad spectrum abx. Acute hypoxic respiratory failure, status post intubation and ventilatory villegas pport, now off vent, on T-piece Hospitalist Physical - Constitutional Vitals: Temp Pulse Resp BP Pulse Ox 97.7 F 105 H 18 101/53 95 04/25/19 09:04 04/25/19 09:04 04/25/19 09:04 04/25/19 09:04 04/25/19 09:04 General appearance: Present: no acute distress, well-nourished, other (T peace) - EENT Eyes: Present: PERRL, EOM intact ENT: hearing intact, clear oral mucosa, dentition normal - Neck Neck: Present: supple, normal ROM - Respiratory Respiratory effort: normal Respiratory: bilateral: CTA - Cardiovascular Rhythm: regular Heart Sounds: Present: S1 & S2. Absent: gallop, rub - Extremities Extremities: no ischemia, No edema, Full ROM - Abdominal General gastrointestinal: soft, non-tender, non-distended, normal bowel sounds - Integumentary Integumentary: Present: clear, warm, dry - Neurologic Neurologic: CNII-XII intact, moves all extremities Results - Labs CBC & Chem 7: 04/18/19 07:19 04/18/19 07:19 Labs: Laboratory Last Values WBC 9.6 K/mm3 (4.5-11.0) 04/18/19 07:19 RBC 3.49 M/mm3 (3.65-5.03) L 04/18/19 07:19 Hgb 9.0 gm/dl (11.8-15.2) L 04/18/19 07:19 Hct 29.9 % (35.5-45.6) L 04/18/19 07:19 MCV 86 fl (84-94) 04/18/19 07:19 MCH 26 pg (28-32) L 04/18/19 07:19 MCHC 30 % (32-34) L 04/18/19 07:19 RDW 20.0 % (13.2-15.2) H 04/18/19 07:19 Plt Count 286 K/mm3 (140-440) 04/18/19 07:19 Lymph % (Auto) 13.3 % (13.4-35.0) L 03/31/19 10:26 [place] % (Auto) 6.5 % (0.0-7.3) 03/31/19 10:26 Eos % (Auto) 7.2 % (0.0-4.3) H 03/31/19 10:26 Baso % (Auto) 0.9 % (0.0-1.8) 03/31/19 10:26 Lymph # 1.1 K/mm3 (1.2-5.4) L 03/31/19 10:26 [place] # 0.5 K/mm3 (0.0-0.8) 03/31/19 10:26 Eos # 0.6 K/mm3 (0.0-0.4) H 03/31/19 10:26 Baso # 0.1 K/mm3 (0.0-0.1) 03/31/19 10:26 Add Manual Diff Complete 03/21/19 06:30 Total Counted 100 03/21/19 06:30 Seg Neutrophils % 72.1 % (40.0-70.0) H 03/31/19 10:26 Seg Neuts % (Manual) 81.0 % (40.0-70.0) H 03/21/19 06:30 Band Neutrophils % 0 % 03/21/19 06:30 Lymphocytes % (Manual) 8.0 % (13.4-35.0) L 03/21/19 06:30 Reactive Lymphs % (Man) 0 % 03/21/19 06:30 Monocytes % (Manual) 1.0 % (0.0-7.3) 03/21/19 06:30 Eosinophils % (Manual) 8.0 % (0.0-4.3) H 03/21/19 06:30 Basophils % (Manual) 1.0 % (0.0-1.8) 03/21/19 06:30 Metamyelocytes % 1.0 % 03/21/19 06:30 Myelocytes % 0 % 03/21/19 06:30 Promyelocytes % 0 % 03/21/19 06:30 Blast Cells % 0 % 03/21/19 06:30 Nucleated RBC % Not Reportable 03/21/19 06:30 Seg Neutrophils # 6.0 K/mm3 (1.8-7.7) 03/31/19 10:26 Seg Neutrophils # Man 6.7 K/mm3 (1.8-7.7) 03/21/19 06:30 Band Neutrophils # 0.0 K/mm3 03/21/19 06:30 Lymphocytes # (Manual) 0.7 K/mm3 (1.2-5.4) L 03/21/19 06:30 Abs React Lymphs (Man) 0.0 K/mm3 03/21/19 06:30 Monocytes # (Manual) 0.1 K/mm3 (0.0-0.8) 03/21/19 06:30 Eosinophils # (Manual) 0.7 K/mm3 (0.0-0.4) H 03/21/19 06:30 Basophils # (Manual) 0.1 K/mm3 (0.0-0.1) 03/21/19 06:30 Metamyelocytes # 0.1 K/mm3 03/21/19 06:30 Myelocytes # 0.0 K/mm3 03/21/19 06:30 Promyelocytes # 0.0 K/mm3 03/21/19 06:30 Blast Cells # 0.0 K/mm3 03/21/19 06:30 WBC Morphology Not Reportable 03/21/19 06:30 Hypersegmented Neuts Not Reportable 03/21/19 06:30 Hyposegmented Neuts Not Reportable 03/21/19 06:30 Hypogranular Neuts Not Reportable 03/21/19 06:30 Smudge Cells Not Reportable 03/21/19 06:30 Toxic Granulation Not Reportable 03/21/19 06:30 Toxic Vacuolation Not Reportable 03/21/19 06:30 Dohle Bodies Not Reportable 03/21/19 06:30 Pelger-Huet Anomaly Not Reportable 03/21/19 06:30 Tramaine Rods Not Reportable 03/21/19 06:30 Platelet Estimate Consistent w auto 03/21/19 06:30 Clumped Platelets Not Reportable 03/21/19 06:30 Plt Clumps, EDTA Not Reportable 03/21/19 06:30 Large Platelets Not Reportable 03/21/19 06:30 Giant Platelets Not Reportable 03/21/19 06:30 Platelet Satelliting Not Reportable 03/21/19 06:30 Plt Morphology Comment Not Reportable 03/21/19 06:30 RBC Morphology Not Reportable 03/21/19 06:30 Dimorphic RBCs Not Reportable 03/21/19 06:30 Polychromasia Not Reportable 03/21/19 06:30 Hypochromasia Few 03/21/19 06:30 Poikilocytosis Few 03/21/19 06:30 Anisocytosis Few 03/21/19 06:30 Microcytosis Not Reportable 03/21/19 06:30 Macrocytosis Not Reportable 03/21/19 06:30 Spherocytes Not Reportable 03/21/19 06:30 Pappenheimer Bodies Not Reportable 03/21/19 06:30 Sickle Cells Not Reportable 03/21/19 06:30 Target Cells 1+ 03/21/19 06:30 Tear Drop Cells Not Reportable 03/21/19 06:30 Ovalocytes Few 03/21/19 06:30 Helmet Cells Not Reportable 03/21/19 06:30 Zhou-[place] Bodies Not Reportable 03/21/19 06:30 [place] Rings Not Reportable 03/21/19 06:30 Hebert Cells Not Reportable 03/21/19 06:30 Bite Cells Not Reportable 03/21/19 06:30 Crenated Cell Not Reportable 03/21/19 06:30 Elliptocytes Not Reportable 03/21/19 06:30 Acanthocytes (Spur) Not Reportable 03/21/19 06:30 Rouleaux Not Reportable 03/21/19 06:30 Hemoglobin C Crystals Not Reportable 03/21/19 06:30 Schistocytes Not Reportable 03/21/19 06:30 Malaria parasites Not Reportable 03/21/19 06:30 Jose Juan Bodies Not Reportable 03/21/19 06:30 Hem Pathologist Commnt No 03/21/19 06:30 PT 16.3 Sec. (12.2-14.9) H 03/01/19 09:39 INR 1.35 (0.87-1.13) H 03/01/19 09:39 APTT 33.7 Sec. (24.2-36.6) 02/21/19 18:30 D-Dimer 2987.82 ng/mlDDU (0-234) H 02/22/19 05:54 POC ABG pH 7.510 (7.35-7.45) H 03/18/19 06:38 ABG pH 7.424 pH Units (7.350-7.450) 03/19/19 04:23 POC ABG pCO2 38.9 (35-45) 03/18/19 06:38 ABG pCO2 48.0 mm Hg 03/19/19 04:23 POC ABG pO2 164 (80-105) H 03/18/19 06:38 ABG pO2 78.3 mm Hg (80.0-90.0) L 03/19/19 04:23 POC ABG HCO3 31.0 (22-26 mml/L) 03/18/19 06:38 ABG HCO3 30.7 mmol/L (20.0-26.0) H 03/19/19 04:23 POC ABG Total CO2 32 (23-27mmol/L) 03/18/19 06:38 POC ABG O2 Sat 100 03/18/19 06:38 ABG O2 Saturation 97.0 % (95.0-99.0) 03/19/19 04:23 ABG O2 Content 7.9 (0.0-44) 03/19/19 04:23 POC ABG Base Excess 8 ((-2) - (+3)mmol/L) 03/18/19 06:38 ABG Base Excess 5.8 mmol/L (-2.0-3.0) H 03/19/19 04:23 ABG Hemoglobin 5.8 gm/dl (14.0-18.0) L 03/19/19 04:23 ABG Carboxyhemoglobin 2.0 % (0.0-5.0) 03/19/19 04:23 ABG Methemoglobin 0.4 % (0.0-1.5) 03/19/19 04:23 Oxyhemoglobin 94.6 % (95.0-99.0) L 03/19/19 04:23 FiO2 35 % 03/19/19 04:23 Sodium 145 mmol/L (137-145) 04/18/19 07:19 Potassium 3.6 mmol/L (3.6-5.0) 04/18/19 07:19 Chloride 99.1 mmol/L (98-107) 04/18/19 07:19 Carbon Dioxide 30 mmol/L (22-30) 04/18/19 07:19 Anion Gap 20 mmol/L 04/18/19 07:19 BUN 41 mg/dL (9-20) H 04/18/19 07:19 Creatinine 2.9 mg/dL (0.8-1.5) H 04/18/19 07:19 Estimated GFR 27 ml/min 04/18/19 07:19 BUN/Creatinine Ratio 14 % 04/18/19 07:19 Glucose 122 mg/dL (75-100) H 04/18/19 07:19 POC Glucose 153 (70-105) H 04/25/19 05:44 Lactic Acid 1.00 mmol/L (0.7-2.0) 02/21/19 20:58 Calcium 10.1 mg/dL (8.4-10.2) 04/18/19 07:19 Phosphorus 4.30 mg/dL (2.5-4.5) D 03/31/19 10:26 Magnesium 2.70 mg/dL (1.7-2.3) H 03/30/19 10:13 Total Bilirubin 0.20 mg/dL (0.1-1.2) 03/30/19 10:13 AST 16 units/L (5-40) 03/30/19 10:13 ALT 11 units/L (7-56) 03/30/19 10:13 Alkaline Phosphatase 185 units/L (35-129) H 03/30/19 10:13 Ammonia 28.0 umol/L (25-60) 02/21/19 20:04 Total Creatine Kinase 64 units/L (55-170) 02/22/19 03:42 CK-MB (CK-2) 3.7 ng/mL (0.0-4.0) 02/22/19 03:42 CK-MB (CK-2) Rel Index 5.7 (0-4) H 02/22/19 03:42 Troponin T 0.193 ng/mL (0.00-0.029) H* 02/22/19 03:42 Total Protein 6.9 g/dL (6.3-8.2) 03/30/19 10:13 Albumin 2.6 g/dL (3.9-5) L 03/30/19 10:13 Albumin/Globulin Ratio 0.6 % 03/30/19 10:13 Triglycerides 51 mg/dL (2-149) 02/21/19 18:30 Cholesterol 82 mg/dL (50-199) 02/21/19 18:30 LDL Cholesterol Direct 36 mg/dL (50-130) L 02/21/19 18:30 HDL Cholesterol 40 mg/dL (40-59) 02/21/19 18:30 Cholesterol/HDL Ratio 2.05 % 02/21/19 18:30 TSH 2.760 mlU/mL (0.270-4.200) 02/21/19 20:04 PTH Intact 267.6 pg/mL (15-65) H 03/02/19 05:15 Salicylates < 0.3 mg/dL (2.8-20.0) L 02/21/19 20:04 Acetaminophen < 5.0 ug/mL (10.0-30.0) L 02/21/19 20:04 Hepatitis A IgM Ab Non-reactive (NonReactive) 03/31/19 22:56 Hep Bs Antigen Non-reactive (Negative) 03/31/19 22:56 Hep B Core IgM Ab Non-reactive (NonReactive) 03/31/19 22:56 Hepatitis C Antibody Non-reactive (NonReactive) 03/31/19 22:56 Blood Type O POSITIVE 03/22/19 08:48 Antibody Screen Negative 03/22/19 08:48 Crossmatch See Detail 03/22/19 08:48 Active Medications - Current Medications Current Medications: Generic Name Dose Route Start Last Admin Trade Name Freq PRN Reason Stop Dose Admin Albuterol/Ipratropium 1 ampul 02/24/19 20:00 04/25/19 08:04 Duoneb *Not For Prn Use* IH 1 ampul TIDRT SANCHEZ Administration Lipase/Protease/Amylase 1 each 04/10/19 15:16 Pancreaze 10,500 Unit FEEDTUBE PRN PRN For Clogged Feeding Tube Epoetin Solitario 20,000 unit 03/24/19 11:17 04/24/19 15:34 Procrit IV 20,000 unit UMA PRN Administration hemodialysis Famotidine 20 mg 02/23/19 10:00 04/24/19 09:09 Pepcid PO 20 mg DAILY SANCHEZ Administration Sodium Chloride 100 mls @ 999 mls/hr 02/26/19 09:00 Nacl 0.9% IV UMA PRN Hypotension Insulin Human Regular 0 units 02/26/19 12:00 04/25/19 06:06 Humulin R SUB-Q 1 units Q6HR SANCHEZ Administration Protocol Metoprolol Tartrate 2.5 mg 02/28/19 12:06 03/15/19 05:15 Lopressor IV 2.5 mg Q4HR PRN Administration Tachycardia Risperidone 1 mg 02/25/19 13:00 04/24/19 09:09 Risperdal PO 1 mg DAILY SANCHEZ Administration Sertraline HCl 100 mg 02/25/19 13:00 04/24/19 09:09 Zoloft PO 100 mg DAILY SANCHEZ Administration Simple Syrup 15 ml 04/10/19 15:16 Simple Syrup FEEDTUBE PRN PRN Hypoglycemia Simple Syrup 30 ml 04/10/19 15:16 Simple Syrup FEEDTUBE PRN PRN Hypoglycemia Sodium Bicarbonate 325 mg 04/10/19 15:16 Sodium Bicarbonate FEEDTUBE PRN PRN For Clogged Feeding Tube Sodium Hypochlorite 1 applic 04/01/19 13:00 04/24/19 21:38 Dakin's Half Strength TP 1 applicatio BID SANCHEZ Administration Nutrition/Malnutrition Assess - Dietary Evaluation Nutrition/Malnutrition Findings: Nutrition Notes Start: 02/22/19 12:51 Freq: Status: Active Protocol: Document 04/24/19 11:11 PS (Rec: 04/24/19 12:23 PS [id number]) Co-Sign 04/24/19 11:11 LP Nutrition Notes Initial or Follow up Reassessment Current Diagnosis Diabetes,Hypertension Other Pertinent Diagnosis Sacral PU, ESRD on HD (T/Thurs /Sat), Schizophrenia,Blind in L eye,S/P trach Current Diet Nepro at 50 ml/hr w/Abhilash BID Labs/Tests POC Glu 141 Pertinent Medications Reviewed Height 5 ft 10 in Weight 65.7 kg [place] Body Weight (kg) 75.45 BMI 20.7 Weight change and time frame wt. change noted. Subjective/Other Information Observed Nepro infusing at 50 ml/hr. RN had Abhilash and was going to give it to him BID. Percent of energy/protein needs met: 100%/100% Burn Absent Trauma Absent Minimum of two criteria No #2 Nutrition Diagnosis Increased nutrient needs ( specify in comment below) Diagnosis Progress(for reassessment Continues documentation) #1 Nutrition Diagnosis Inadequate oral intake Diagnosis Progress(for reassessment Continues documentation) Is patient on ventilator? No Is Patient Ambulatory and/or Out of Bed No REE-([facility]-confined to bed) 1749.252 Kcal/Kg value to use for calculation 35 Approximate Energy Requirements Using 2300 kcal/Kg Calculation Used for Recommendations Kcal/kg Additional Notes Protein Needs: 79 - 98 g (1.2- 1.5 g/kg) Fluid Needs: 1-1.5 L/day Nutrition Intervention Change Diet Order: Continue TF Nutrition Support: Nepro with Carbsteady 1.8 at 50 ml/hr Flush 200 ml q4hr Kcal 2,160 Protein (gm) 97 Fluid (mL) 872 Add Supplement/Snack (indicate name/kcal Abhilash BID /protein ) Provides kCal: 190 Provides Protein (gm) 5 Goal #1 TF tolerance Goal #2 Continue to meet at least 75% of calorie and protein needs via TF Anticipated Discharge Needs: TF Follow-Up By: 05/01/19 Additional Comments Follow for TF/ONS tolerance
[2019-04-25] MEDS: FAMOTIDINE 20 MG TAB PO SCH (09:23)
[2019-04-25] MEDS: SODIUM HYPOCHLORITE, DAKIN'S 1/2 STRENGTH (0.25%) 473 ML TOPICAL SOLN TP SCH ×2 (09:23→22:11)
[2019-04-25] MEDS: risperiDONE 1 MG TAB PO SCH (09:23)
[2019-04-25] MEDS: SERTRALINE 100 MG TAB PO SCH (09:23)
--- NOTE | 2019-04-25 10:58 | Progress Note ---
Assessment and Plan 63 y/o male with multiple medical issues admitted with altered mental status, acute respiratory failure requiring mechanical ventilation 1. Daily PMV trials. Hopefully will lead to capping and nasal cannula at some point. then could consider decannulation. 2. HD per renal 3. PT/OT if possible 4. CM working on placement Subjective Date of service: 04/25/19 Principal diagnosis: Respiratory failure, acute on chronic systolic HF, ESRD Interval history: Did PMV for about 3-4 hours on yesterday. No distress noted. Currently back on T-piece. Not as alert this am. No family present. Objective Vital Signs - 12hr 04/24/19 04/25/19 04/25/19 23:54 00:15 04:32 Temperature 98.0 F 98.0 F Pulse Rate 107 H Pulse Rate [ Anterior Bilateral Throughout] Respiratory 20 18 Rate Respiratory Rate [Anterior Bilateral Throughout] Blood Pressure 139/67 129/62 O2 Sat by Pulse 99 Oximetry O2 Sat by Pulse 100 Oximetry [ Assessment] 04/25/19 04/25/19 08:04 09:04 Temperature 97.7 F Pulse Rate 105 H Pulse Rate [ 114 H Anterior Bilateral Throughout] Respiratory 18 Rate Respiratory 20 Rate [Anterior Bilateral Throughout] Blood Pressure 101/53 O2 Sat by Pulse 95 Oximetry O2 Sat by Pulse 97 Oximetry [ Assessment] Constitutional: no acute distress, alert Eyes: non-icteric ENT: oropharynx moist Neck: supple Effort: normal Ascultation: Bilateral: diminished breath sounds, other (coarse BS bilaterally) Percussion: Bilateral: not dull Cardiovascular: regular rate and rhythm (no mrg) Gastrointestinal: normoactive bowel sounds, soft, non-tender, non-distended, other (ostomy in place, brown stool) Extremities: no cyanosis, no edema, pink and warm Neurologic: other (mild weakness LUE, o/w nonfocal) Psychiatric: other (unable to assess) CBC and BMP: 04/18/19 07:19 04/18/19 07:19 ABG, PT/INR, D-dimer: ABG POC ABG pH 7.510 (7.35-7.45) H 03/18/19 06:38 ABG pH 7.424 pH Units (7.350-7.450) 03/19/19 04:23 POC ABG pCO2 38.9 (35-45) 03/18/19 06:38 ABG pCO2 48.0 mm Hg 03/19/19 04:23 POC ABG pO2 164 (80-105) H 03/18/19 06:38 ABG pO2 78.3 mm Hg (80.0-90.0) L 03/19/19 04:23 POC ABG HCO3 31.0 (22-26 mml/L) 03/18/19 06:38 POC ABG Total CO2 32 (23-27mmol/L) 03/18/19 06:38 POC ABG O2 Sat 100 03/18/19 06:38 ABG O2 Saturation 97.0 % (95.0-99.0) 03/19/19 04:23 PT/INR, D-dimer PT 16.3 Sec. (12.2-14.9) H 03/01/19 09:39 INR 1.35 (0.87-1.13) H 03/01/19 09:39 D-Dimer 2987.82 ng/mlDDU (0-234) H 02/22/19 05:54 Abnormal lab findings: Abnormal Labs 02/21/19 02/21/19 02/21/19 18:30 18:30 18:30 WBC RBC 3.26 L Hgb 8.8 L Hct 29.0 L MCH 27 L MCHC 30 L RDW 19.1 H Lymph % (Auto) 6.1 L Park % (Auto) Eos % (Auto) Lymph # 0.4 L Park # Eos # Seg Neutrophils % 86.2 H Seg Neuts % (Manual) Lymphocytes % (Manual) Eosinophils % (Manual) Seg Neutrophils # Lymphocytes # (Manual) Eosinophils # (Manual) PT INR D-Dimer POC ABG pH POC ABG pCO2 POC ABG pO2 ABG pO2 ABG HCO3 ABG Base Excess ABG Hemoglobin Oxyhemoglobin Sodium 133 L Potassium 3.3 L Chloride 93.1 L Carbon Dioxide 33 H BUN Creatinine Glucose 161 H POC Glucose Calcium Phosphorus Magnesium ALT Alkaline Phosphatase 136 H Total Creatine Kinase 37 L CK-MB (CK-2) Rel Index Troponin T 0.192 H* Albumin 2.4 L LDL Cholesterol Direct 36 L PTH Intact Salicylates Acetaminophen Crossmatch 02/21/19 02/21/19 02/21/19 18:42 20:04 20:04 WBC RBC Hgb Hct MCH MCHC RDW Lymph % (Auto) Park % (Auto) Eos % (Auto) Lymph # Park # Eos # Seg Neutrophils % Seg Neuts % (Manual) Lymphocytes % (Manual) Eosinophils % (Manual) Seg Neutrophils # Lymphocytes # (Manual) Eosinophils # (Manual) PT INR D-Dimer POC ABG pH POC ABG pCO2 56.7 H POC ABG pO2 291 H ABG pO2 ABG HCO3 ABG Base Excess ABG Hemoglobin Oxyhemoglobin Sodium Potassium Chloride Carbon Dioxide BUN Creatinine Glucose POC Glucose Calcium Phosphorus Magnesium ALT Alkaline Phosphatase Total Creatine Kinase CK-MB (CK-2) Rel Index Troponin T Albumin LDL Cholesterol Direct PTH Intact Salicylates < 0.3 L Acetaminophen < 5.0 L Crossmatch 02/21/19 02/22/19 02/22/19 22:35 03:42 03:42 WBC RBC 3.20 L Hgb 8.8 L Hct 27.6 L MCH MCHC RDW 18.9 H Lymph % (Auto) 7.4 L Park % (Auto) Eos % (Auto) Lymph # 0.7 L Park # Eos # Seg Neutrophils % 84.7 H Seg Neuts % (Manual) Lymphocytes % (Manual) Eosinophils % (Manual) Seg Neutrophils # Lymphocytes # (Manual) Eosinophils # (Manual) PT INR D-Dimer POC ABG pH POC ABG pCO2 POC ABG pO2 ABG pO2 ABG HCO3 ABG Base Excess ABG Hemoglobin Oxyhemoglobin Sodium 134 L Potassium 2.6 L* D Chloride Carbon Dioxide BUN Creatinine Glucose POC Glucose Calcium Phosphorus Magnesium ALT Alkaline Phosphatase Total Creatine Kinase CK-MB (CK-2) Rel Index 5.2 H Troponin T 0.202 H* Albumin LDL Cholesterol Direct PTH Intact Salicylates Acetaminophen Crossmatch 02/22/19 02/22/19 02/22/19 03:42 05:54 09:04 WBC RBC Hgb Hct MCH MCHC RDW Lymph % (Auto) Park % (Auto) Eos % (Auto) Lymph # Park # Eos # Seg Neutrophils % Seg Neuts % (Manual) Lymphocytes % (Manual) Eosinophils % (Manual) Seg Neutrophils # Lymphocytes # (Manual) Eosinophils # (Manual) PT INR D-Dimer 2987.82 H POC ABG pH 7.451 H POC ABG pCO2 POC ABG pO2 ABG pO2 ABG HCO3 ABG Base Excess ABG Hemoglobin Oxyhemoglobin Sodium Potassium Chloride Carbon Dioxide BUN Creatinine Glucose POC Glucose Calcium Phosphorus Magnesium ALT Alkaline Phosphatase Total Creatine Kinase CK-MB (CK-2) Rel Index 5.7 H Troponin T 0.193 H* Albumin LDL Cholesterol Direct PTH Intact Salicylates Acetaminophen Crossmatch 02/22/19 02/22/19 02/23/19 10:36 23:56 00:52 WBC RBC Hgb Hct MCH MCHC RDW Lymph % (Auto) Park % (Auto) Eos % (Auto) Lymph # Park # Eos # Seg Neutrophils % Seg Neuts % (Manual) Lymphocytes % (Manual) Eosinophils % (Manual) Seg Neutrophils # Lymphocytes # (Manual) Eosinophils # (Manual) PT INR D-Dimer POC ABG pH POC ABG pCO2 POC ABG pO2 ABG pO2 ABG HCO3 ABG Base Excess ABG Hemoglobin Oxyhemoglobin Sodium Potassium 3.1 L Chloride Carbon Dioxide BUN Creatinine Glucose POC Glucose 58 L 111 H Calcium Phosphorus Magnesium ALT Alkaline Phosphatase Total Creatine Kinase CK-MB (CK-2) Rel Index Troponin T Albumin LDL Cholesterol Direct PTH Intact Salicylates Acetaminophen Crossmatch 02/23/19 02/23/19 02/23/19 05:00 06:35 14:26 WBC RBC Hgb Hct MCH MCHC RDW Lymph % (Auto) Park % (Auto) Eos % (Auto) Lymph # Park # Eos # Seg Neutrophils % Seg Neuts % (Manual) Lymphocytes % (Manual) Eosinophils % (Manual) Seg Neutrophils # Lymphocytes # (Manual) Eosinophils # (Manual) PT INR D-Dimer POC ABG pH POC ABG pCO2 POC ABG pO2 ABG pO2 ABG HCO3 ABG Base Excess ABG Hemoglobin Oxyhemoglobin Sodium 135 L Potassium 3.1 L Chloride Carbon Dioxide BUN 21 H Creatinine 2.0 H Glucose 57 L POC Glucose 64 L 62 L Calcium Phosphorus Magnesium ALT Alkaline Phosphatase Total Creatine Kinase CK-MB (CK-2) Rel Index Troponin T Albumin LDL Cholesterol Direct PTH Intact Salicylates Acetaminophen Crossmatch 02/24/19 02/24/19 02/24/19 02:11 04:12 04:55 WBC RBC 2.84 L Hgb 7.8 L Hct 24.5 L MCH MCHC RDW 19.5 H Lymph % (Auto) Park % (Auto) Eos % (Auto) Lymph # Park # Eos # Seg Neutrophils % Seg Neuts % (Manual) Lymphocytes % (Manual) Eosinophils % (Manual) Seg Neutrophils # Lymphocytes # (Manual) Eosinophils # (Manual) PT INR D-Dimer POC ABG pH 7.511 H POC ABG pCO2 33.9 L POC ABG pO2 62 L ABG pO2 ABG HCO3 ABG Base Excess ABG Hemoglobin Oxyhemoglobin Sodium Potassium Chloride Carbon Dioxide BUN Creatinine Glucose POC Glucose 69 L Calcium Phosphorus Magnesium ALT Alkaline Phosphatase Total Creatine Kinase CK-MB (CK-2) Rel Index Troponin T Albumin LDL Cholesterol Direct PTH Intact Salicylates Acetaminophen Crossmatch 02/24/19 02/24/19 02/25/19 04:55 05:41 04:45 WBC RBC Hgb Hct MCH MCHC RDW Lymph % (Auto) Park % (Auto) Eos % (Auto) Lymph # Park # Eos # Seg Neutrophils % Seg Neuts % (Manual) Lymphocytes % (Manual) Eosinophils % (Manual) Seg Neutrophils # Lymphocytes # (Manual) Eosinophils # (Manual) PT INR D-Dimer POC ABG pH 7.466 H POC ABG pCO2 POC ABG pO2 75 L ABG pO2 ABG HCO3 ABG Base Excess ABG Hemoglobin Oxyhemoglobin Sodium Potassium Chloride Carbon Dioxide BUN Creatinine 1.8 H Glucose 73 L POC Glucose 127 H Calcium Phosphorus Magnesium ALT Alkaline Phosphatase Total Creatine Kinase CK-MB (CK-2) Rel Index Troponin T Albumin LDL Cholesterol Direct PTH Intact Salicylates Acetaminophen Crossmatch 02/25/19 02/25/19 02/26/19 16:34 21:33 03:45 WBC RBC 2.96 L Hgb 8.0 L Hct 25.8 L MCH 27 L MCHC 31 L RDW 20.0 H Lymph % (Auto) Park % (Auto) Eos % (Auto) Lymph # Park # Eos # Seg Neutrophils % Seg Neuts % (Manual) Lymphocytes % (Manual) Eosinophils % (Manual) Seg Neutrophils # Lymphocytes # (Manual) Eosinophils # (Manual) PT INR D-Dimer POC ABG pH POC ABG pCO2 POC ABG pO2 ABG pO2 ABG HCO3 ABG Base Excess ABG Hemoglobin Oxyhemoglobin Sodium Potassium Chloride Carbon Dioxide BUN Creatinine Glucose POC Glucose 141 H 106 H Calcium Phosphorus Magnesium ALT Alkaline Phosphatase Total Creatine Kinase CK-MB (CK-2) Rel Index Troponin T Albumin LDL Cholesterol Direct PTH Intact Salicylates Acetaminophen Crossmatch 02/26/19 02/26/19 02/26/19 03:45 04:13 07:53 WBC RBC Hgb Hct MCH MCHC RDW Lymph % (Auto) Park % (Auto) Eos % (Auto) Lymph # Park # Eos # Seg Neutrophils % Seg Neuts % (Manual) Lymphocytes % (Manual) Eosinophils % (Manual) Seg Neutrophils # Lymphocytes # (Manual) Eosinophils # (Manual) PT INR D-Dimer POC ABG pH 7.470 H POC ABG pCO2 POC ABG pO2 ABG pO2 ABG HCO3 ABG Base Excess ABG Hemoglobin Oxyhemoglobin Sodium Potassium Chloride Carbon Dioxide BUN Creatinine 1.8 H Glucose POC Glucose 110 H Calcium Phosphorus Magnesium ALT Alkaline Phosphatase Total Creatine Kinase CK-MB (CK-2) Rel Index Troponin T Albumin LDL Cholesterol Direct PTH Intact Salicylates Acetaminophen Crossmatch 02/26/19 02/26/19 02/27/19 11:56 17:43 00:12 WBC RBC Hgb Hct MCH MCHC RDW Lymph % (Auto) Park % (Auto) Eos % (Auto) Lymph # Park # Eos # Seg Neutrophils % Seg Neuts % (Manual) Lymphocytes % (Manual) Eosinophils % (Manual) Seg Neutrophils # Lymphocytes # (Manual) Eosinophils # (Manual) PT INR D-Dimer POC ABG pH POC ABG pCO2 POC ABG pO2 ABG pO2 ABG HCO3 ABG Base Excess ABG Hemoglobin Oxyhemoglobin Sodium Potassium Chloride Carbon Dioxide BUN Creatinine Glucose POC Glucose 112 H 127 H 127 H Calcium Phosphorus Magnesium ALT Alkaline Phosphatase Total Creatine Kinase CK-MB (CK-2) Rel Index Troponin T Albumin LDL Cholesterol Direct PTH Intact Salicylates Acetaminophen Crossmatch 02/27/19 02/27/19 02/27/19 04:35 13:15 18:02 WBC RBC Hgb Hct MCH MCHC RDW Lymph % (Auto) Park % (Auto) Eos % (Auto) Lymph # Park # Eos # Seg Neutrophils % Seg Neuts % (Manual) Lymphocytes % (Manual) Eosinophils % (Manual) Seg Neutrophils # Lymphocytes # (Manual) Eosinophils # (Manual) PT INR D-Dimer POC ABG pH 7.483 H POC ABG pCO2 POC ABG pO2 61 L ABG pO2 ABG HCO3 ABG Base Excess ABG Hemoglobin Oxyhemoglobin Sodium Potassium Chloride Carbon Dioxide BUN Creatinine Glucose POC Glucose 143 H 106 H Calcium Phosphorus Magnesium ALT Alkaline Phosphatase Total Creatine Kinase CK-MB (CK-2) Rel Index Troponin T Albumin LDL Cholesterol Direct PTH Intact Salicylates Acetaminophen Crossmatch 02/28/19 02/28/19 02/28/19 05:50 11:59 17:52 WBC RBC Hgb Hct MCH MCHC RDW Lymph % (Auto) Park % (Auto) Eos % (Auto) Lymph # Park # Eos # Seg Neutrophils % Seg Neuts % (Manual) Lymphocytes % (Manual) Eosinophils % (Manual) Seg Neutrophils # Lymphocytes # (Manual) Eosinophils # (Manual) PT INR D-Dimer POC ABG pH POC ABG pCO2 POC ABG pO2 ABG pO2 ABG HCO3 ABG Base Excess ABG Hemoglobin Oxyhemoglobin Sodium Potassium Chloride Carbon Dioxide BUN Creatinine Glucose POC Glucose 134 H 128 H 142 H Calcium Phosphorus Magnesium ALT Alkaline Phosphatase Total Creatine Kinase CK-MB (CK-2) Rel Index Troponin T Albumin LDL Cholesterol Direct PTH Intact Salicylates Acetaminophen Crossmatch 02/28/19 03/01/19 03/01/19 23:13 05:40 09:39 WBC RBC Hgb Hct MCH MCHC RDW Lymph % (Auto) Park % (Auto) Eos % (Auto) Lymph # Park # Eos # Seg Neutrophils % Seg Neuts % (Manual) Lymphocytes % (Manual) Eosinophils % (Manual) Seg Neutrophils # Lymphocytes # (Manual) Eosinophils # (Manual) PT 16.3 H INR 1.35 H D-Dimer POC ABG pH POC ABG pCO2 POC ABG pO2 ABG pO2 ABG HCO3 ABG Base Excess ABG Hemoglobin Oxyhemoglobin Sodium Potassium Chloride Carbon Dioxide BUN Creatinine Glucose POC Glucose 112 H 111 H Calcium Phosphorus Magnesium ALT Alkaline Phosphatase Total Creatine Kinase CK-MB (CK-2) Rel Index Troponin T Albumin LDL Cholesterol Direct PTH Intact Salicylates Acetaminophen Crossmatch 03/01/19 03/01/19 03/01/19 11:56 13:54 17:59 WBC RBC Hgb Hct MCH MCHC RDW Lymph % (Auto) Park % (Auto) Eos % (Auto) Lymph # Park # Eos # Seg Neutrophils % Seg Neuts % (Manual) Lymphocytes % (Manual) Eosinophils % (Manual) Seg Neutrophils # Lymphocytes # (Manual) Eosinophils # (Manual) PT INR D-Dimer POC ABG pH POC ABG pCO2 POC ABG pO2 ABG pO2 ABG HCO3 ABG Base Excess ABG Hemoglobin Oxyhemoglobin Sodium Potassium Chloride Carbon Dioxide BUN 33 H Creatinine 2.8 H D Glucose 176 H POC Glucose 199 H 147 H Calcium Phosphorus Magnesium ALT Alkaline Phosphatase Total Creatine Kinase CK-MB (CK-2) Rel Index Troponin T Albumin LDL Cholesterol Direct PTH Intact Salicylates Acetaminophen Crossmatch 03/02/19 03/02/19 03/02/19 05:15 05:15 05:15 WBC RBC 2.73 L Hgb 7.4 L Hct 23.0 L MCH 27 L MCHC RDW 19.9 H Lymph % (Auto) Park % (Auto) 7.9 H Eos % (Auto) 7.6 H Lymph # 1.0 L Park # Eos # 0.5 H Seg Neutrophils % Seg Neuts % (Manual) Lymphocytes % (Manual) Eosinophils % (Manual) Seg Neutrophils # Lymphocytes # (Manual) Eosinophils # (Manual) PT INR D-Dimer POC ABG pH POC ABG pCO2 POC ABG pO2 ABG pO2 ABG HCO3 ABG Base Excess ABG Hemoglobin Oxyhemoglobin Sodium Potassium Chloride Carbon Dioxide BUN 43 H Creatinine 3.2 H Glucose POC Glucose Calcium Phosphorus 2.30 L Magnesium ALT Alkaline Phosphatase Total Creatine Kinase CK-MB (CK-2) Rel Index Troponin T Albumin LDL Cholesterol Direct PTH Intact 267.6 H Salicylates Acetaminophen Crossmatch 03/02/19 03/02/19 03/03/19 12:32 18:20 13:30 WBC RBC Hgb Hct MCH MCHC RDW Lymph % (Auto) Park % (Auto) Eos % (Auto) Lymph # Park # Eos # Seg Neutrophils % Seg Neuts % (Manual) Lymphocytes % (Manual) Eosinophils % (Manual) Seg Neutrophils # Lymphocytes # (Manual) Eosinophils # (Manual) PT INR D-Dimer POC ABG pH POC ABG pCO2 POC ABG pO2 ABG pO2 ABG HCO3 ABG Base Excess ABG Hemoglobin Oxyhemoglobin Sodium Potassium Chloride 97.3 L Carbon Dioxide BUN 26 H Creatinine 2.2 H Glucose 73 L POC Glucose 111 H 156 H Calcium Phosphorus Magnesium ALT Alkaline Phosphatase Total Creatine Kinase CK-MB (CK-2) Rel Index Troponin T Albumin LDL Cholesterol Direct PTH Intact Salicylates Acetaminophen Crossmatch 03/04/19 03/04/19 03/04/19 00:02 05:37 05:40 WBC RBC 2.63 L Hgb 7.2 L Hct 22.2 L MCH MCHC RDW 20.2 H Lymph % (Auto) 10.5 L Park % (Auto) Eos % (Auto) 4.6 H Lymph # 0.7 L Park # Eos # Seg Neutrophils % 76.9 H Seg Neuts % (Manual) Lymphocytes % (Manual) Eosinophils % (Manual) Seg Neutrophils # Lymphocytes # (Manual) Eosinophils # (Manual) PT INR D-Dimer POC ABG pH POC ABG pCO2 POC ABG pO2 ABG pO2 ABG HCO3 ABG Base Excess ABG Hemoglobin Oxyhemoglobin Sodium Potassium Chloride Carbon Dioxide BUN Creatinine Glucose POC Glucose 136 H 123 H Calcium Phosphorus Magnesium ALT Alkaline Phosphatase Total Creatine Kinase CK-MB (CK-2) Rel Index Troponin T Albumin LDL Cholesterol Direct PTH Intact Salicylates Acetaminophen Crossmatch 03/04/19 03/04/19 03/04/19 05:40 11:39 23:20 WBC RBC Hgb Hct MCH MCHC RDW Lymph % (Auto) Park % (Auto) Eos % (Auto) Lymph # Park # Eos # Seg Neutrophils % Seg Neuts % (Manual) Lymphocytes % (Manual) Eosinophils % (Manual) Seg Neutrophils # Lymphocytes # (Manual) Eosinophils # (Manual) PT INR D-Dimer POC ABG pH POC ABG pCO2 POC ABG pO2 ABG pO2 ABG HCO3 ABG Base Excess ABG Hemoglobin Oxyhemoglobin Sodium Potassium Chloride Carbon Dioxide BUN 34 H Creatinine 2.7 H Glucose 114 H POC Glucose 175 H 151 H Calcium Phosphorus Magnesium ALT Alkaline Phosphatase Total Creatine Kinase CK-MB (CK-2) Rel Index Troponin T Albumin LDL Cholesterol Direct PTH Intact Salicylates Acetaminophen Crossmatch 03/05/19 03/05/19 03/05/19 05:37 12:08 17:11 WBC RBC Hgb Hct MCH MCHC RDW Lymph % (Auto) Park % (Auto) Eos % (Auto) Lymph # Park # Eos # Seg Neutrophils % Seg Neuts % (Manual) Lymphocytes % (Manual) Eosinophils % (Manual) Seg Neutrophils # Lymphocytes # (Manual) Eosinophils # (Manual) PT INR D-Dimer POC ABG pH POC ABG pCO2 POC ABG pO2 ABG pO2 ABG HCO3 ABG Base Excess ABG Hemoglobin Oxyhemoglobin Sodium Potassium Chloride Carbon Dioxide BUN Creatinine Glucose POC Glucose 134 H 135 H 135 H Calcium Phosphorus Magnesium ALT Alkaline Phosphatase Total Creatine Kinase CK-MB (CK-2) Rel Index Troponin T Albumin LDL Cholesterol Direct PTH Intact Salicylates Acetaminophen Crossmatch 03/06/19 03/06/19 03/06/19 00:16 13:05 18:09 WBC RBC Hgb Hct MCH MCHC RDW Lymph % (Auto) Park % (Auto) Eos % (Auto) Lymph # Park # Eos # Seg Neutrophils % Seg Neuts % (Manual) Lymphocytes % (Manual) Eosinophils % (Manual) Seg Neutrophils # Lymphocytes # (Manual) Eosinophils # (Manual) PT INR D-Dimer POC ABG pH POC ABG pCO2 POC ABG pO2 ABG pO2 ABG HCO3 ABG Base Excess ABG Hemoglobin Oxyhemoglobin Sodium Potassium Chloride Carbon Dioxide BUN Creatinine Glucose POC Glucose 117 H 113 H 131 H Calcium Phosphorus Magnesium ALT Alkaline Phosphatase Total Creatine Kinase CK-MB (CK-2) Rel Index Troponin T Albumin LDL Cholesterol Direct PTH Intact Salicylates Acetaminophen Crossmatch 03/07/19 03/08/19 03/08/19 05:25 05:33 16:00 WBC RBC 2.44 L Hgb 6.6 L Hct 20.8 L MCH 27 L MCHC RDW 19.2 H Lymph % (Auto) Park % (Auto) Eos % (Auto) 8.6 H Lymph # 0.8 L Park # Eos # 0.5 H Seg Neutrophils % 70.7 H Seg Neuts % (Manual) Lymphocytes % (Manual) Eosinophils % (Manual) Seg Neutrophils # Lymphocytes # (Manual) Eosinophils # (Manual) PT INR D-Dimer POC ABG pH POC ABG pCO2 POC ABG pO2 ABG pO2 ABG HCO3 ABG Base Excess ABG Hemoglobin Oxyhemoglobin Sodium Potassium Chloride Carbon Dioxide BUN Creatinine Glucose POC Glucose 106 H 108 H Calcium Phosphorus Magnesium ALT Alkaline Phosphatase Total Creatine Kinase CK-MB (CK-2) Rel Index Troponin T Albumin LDL Cholesterol Direct PTH Intact Salicylates Acetaminophen Crossmatch 03/08/19 03/08/19 03/08/19 16:00 18:38 Unknown WBC RBC Hgb Hct MCH MCHC RDW Lymph % (Auto) Park % (Auto) Eos % (Auto) Lymph # Park # Eos # Seg Neutrophils % Seg Neuts % (Manual) Lymphocytes % (Manual) Eosinophils % (Manual) Seg Neutrophils # Lymphocytes # (Manual) Eosinophils # (Manual) PT INR D-Dimer POC ABG pH POC ABG pCO2 POC ABG pO2 ABG pO2 ABG HCO3 ABG Base Excess ABG Hemoglobin Oxyhemoglobin Sodium Potassium 5.4 H D Chloride Carbon Dioxide BUN 47 H Creatinine 2.6 H Glucose POC Glucose 123 H Calcium Phosphorus Magnesium ALT < 5 L Alkaline Phosphatase Total Creatine Kinase CK-MB (CK-2) Rel Index Troponin T Albumin 2.2 L LDL Cholesterol Direct PTH Intact Salicylates Acetaminophen Crossmatch See Detail 03/09/19 03/09/19 03/09/19 10:48 12:28 13:53 WBC RBC 2.85 L Hgb 7.7 L Hct 24.2 L MCH 27 L MCHC RDW 18.7 H Lymph % (Auto) Park % (Auto) Eos % (Auto) Lymph # Park # Eos # Seg Neutrophils % Seg Neuts % (Manual) Lymphocytes % (Manual) Eosinophils % (Manual) Seg Neutrophils # Lymphocytes # (Manual) Eosinophils # (Manual) PT INR D-Dimer POC ABG pH POC ABG pCO2 POC ABG pO2 ABG pO2 ABG HCO3 30.5 H ABG Base Excess 5.6 H ABG Hemoglobin 8.1 L Oxyhemoglobin 93.8 L Sodium Potassium Chloride Carbon Dioxide BUN Creatinine Glucose POC Glucose 114 H Calcium Phosphorus Magnesium ALT Alkaline Phosphatase Total Creatine Kinase CK-MB (CK-2) Rel Index Troponin T Albumin LDL Cholesterol Direct PTH Intact Salicylates Acetaminophen Crossmatch 03/09/19 03/09/19 03/10/19 17:58 23:53 12:01 WBC RBC Hgb Hct MCH MCHC RDW Lymph % (Auto) Park % (Auto) Eos % (Auto) Lymph # Park # Eos # Seg Neutrophils % Seg Neuts % (Manual) Lymphocytes % (Manual) Eosinophils % (Manual) Seg Neutrophils # Lymphocytes # (Manual) Eosinophils # (Manual) PT INR D-Dimer POC ABG pH POC ABG pCO2 POC ABG pO2 ABG pO2 ABG HCO3 ABG Base Excess ABG Hemoglobin Oxyhemoglobin Sodium Potassium Chloride Carbon Dioxide BUN Creatinine Glucose POC Glucose 108 H 128 H 144 H Calcium Phosphorus Magnesium ALT Alkaline Phosphatase Total Creatine Kinase CK-MB (CK-2) Rel Index Troponin T Albumin LDL Cholesterol Direct PTH Intact Salicylates Acetaminophen Crossmatch 03/10/19 03/11/19 03/11/19 16:50 00:24 05:02 WBC RBC Hgb Hct MCH MCHC RDW Lymph % (Auto) Park % (Auto) Eos % (Auto) Lymph # Park # Eos # Seg Neutrophils % Seg Neuts % (Manual) Lymphocytes % (Manual) Eosinophils % (Manual) Seg Neutrophils # Lymphocytes # (Manual) Eosinophils # (Manual) PT INR D-Dimer POC ABG pH POC ABG pCO2 POC ABG pO2 ABG pO2 ABG HCO3 ABG Base Excess ABG Hemoglobin Oxyhemoglobin Sodium Potassium Chloride Carbon Dioxide BUN Creatinine Glucose POC Glucose 147 H 123 H 120 H Calcium Phosphorus Magnesium ALT Alkaline Phosphatase Total Creatine Kinase CK-MB (CK-2) Rel Index Troponin T Albumin LDL Cholesterol Direct PTH Intact Salicylates Acetaminophen Crossmatch 03/11/19 03/11/19 03/11/19 11:56 12:20 18:37 WBC RBC Hgb Hct MCH MCHC RDW Lymph % (Auto) Park % (Auto) Eos % (Auto) Lymph # Park # Eos # Seg Neutrophils % Seg Neuts % (Manual) Lymphocytes % (Manual) Eosinophils % (Manual) Seg Neutrophils # Lymphocytes # (Manual) Eosinophils # (Manual) PT INR D-Dimer POC ABG pH POC ABG pCO2 POC ABG pO2 ABG pO2 ABG HCO3 ABG Base Excess ABG Hemoglobin Oxyhemoglobin Sodium Potassium 5.2 H Chloride Carbon Dioxide BUN Creatinine Glucose POC Glucose 123 H 125 H Calcium Phosphorus Magnesium ALT Alkaline Phosphatase Total Creatine Kinase CK-MB (CK-2) Rel Index Troponin T Albumin LDL Cholesterol Direct PTH Intact Salicylates Acetaminophen Crossmatch 03/11/19 03/12/19 03/12/19 22:52 12:04 18:25 WBC RBC Hgb Hct MCH MCHC RDW Lymph % (Auto) Park % (Auto) Eos % (Auto) Lymph # Park # Eos # Seg Neutrophils % Seg Neuts % (Manual) Lymphocytes % (Manual) Eosinophils % (Manual) Seg Neutrophils # Lymphocytes # (Manual) Eosinophils # (Manual) PT INR D-Dimer POC ABG pH POC ABG pCO2 POC ABG pO2 ABG pO2 ABG HCO3 ABG Base Excess ABG Hemoglobin Oxyhemoglobin Sodium Potassium Chloride Carbon Dioxide BUN Creatinine Glucose POC Glucose 110 H 106 H 118 H Calcium Phosphorus Magnesium ALT Alkaline Phosphatase Total Creatine Kinase CK-MB (CK-2) Rel Index Troponin T Albumin LDL Cholesterol Direct PTH Intact Salicylates Acetaminophen Crossmatch 03/12/19 03/13/19 03/13/19 23:36 04:38 04:38 WBC RBC 2.95 L Hgb 7.9 L Hct 24.9 L MCH 27 L MCHC RDW 19.9 H Lymph % (Auto) 11.1 L Park % (Auto) 8.1 H Eos % (Auto) 4.4 H Lymph # 0.9 L Park # Eos # Seg Neutrophils % 75.4 H Seg Neuts % (Manual) Lymphocytes % (Manual) Eosinophils % (Manual) Seg Neutrophils # Lymphocytes # (Manual) Eosinophils # (Manual) PT INR D-Dimer POC ABG pH POC ABG pCO2 POC ABG pO2 ABG pO2 ABG HCO3 ABG Base Excess ABG Hemoglobin Oxyhemoglobin Sodium 136 L Potassium 5.1 H Chloride 93.8 L Carbon Dioxide BUN 48 H Creatinine 2.7 H Glucose 102 H POC Glucose 115 H Calcium Phosphorus Magnesium ALT < 5 L Alkaline Phosphatase 143 H Total Creatine Kinase CK-MB (CK-2) Rel Index Troponin T Albumin 2.5 L LDL Cholesterol Direct PTH Intact Salicylates Acetaminophen Crossmatch 03/13/19 03/13/19 03/13/19 05:33 13:37 18:03 WBC RBC Hgb Hct MCH MCHC RDW Lymph % (Auto) Park % (Auto) Eos % (Auto) Lymph # Park # Eos # Seg Neutrophils % Seg Neuts % (Manual) Lymphocytes % (Manual) Eosinophils % (Manual) Seg Neutrophils # Lymphocytes # (Manual) Eosinophils # (Manual) PT INR D-Dimer POC ABG pH POC ABG pCO2 POC ABG pO2 ABG pO2 ABG HCO3 ABG Base Excess ABG Hemoglobin Oxyhemoglobin Sodium Potassium Chloride Carbon Dioxide BUN Creatinine Glucose POC Glucose 140 H 150 H 158 H Calcium Phosphorus Magnesium ALT Alkaline Phosphatase Total Creatine Kinase CK-MB (CK-2) Rel Index Troponin T Albumin LDL Cholesterol Direct PTH Intact Salicylates Acetaminophen Crossmatch 03/13/19 03/14/19 03/14/19 23:32 05:24 12:20 WBC RBC Hgb Hct MCH MCHC RDW Lymph % (Auto) Park % (Auto) Eos % (Auto) Lymph # Park # Eos # Seg Neutrophils % Seg Neuts % (Manual) Lymphocytes % (Manual) Eosinophils % (Manual) Seg Neutrophils # Lymphocytes # (Manual) Eosinophils # (Manual) PT INR D-Dimer POC ABG pH POC ABG pCO2 POC ABG pO2 ABG pO2 ABG HCO3 ABG Base Excess ABG Hemoglobin Oxyhemoglobin Sodium Potassium Chloride Carbon Dioxide BUN Creatinine Glucose POC Glucose 162 H 146 H 127 H Calcium Phosphorus Magnesium ALT Alkaline Phosphatase Total Creatine Kinase CK-MB (CK-2) Rel Index Troponin T Albumin LDL Cholesterol Direct PTH Intact Salicylates Acetaminophen Crossmatch 03/14/19 03/14/19 03/15/19 18:05 23:57 04:38 WBC 12.8 H RBC 3.11 L Hgb 8.1 L Hct 26.5 L MCH 26 L MCHC 31 L RDW 19.7 H Lymph % (Auto) 4.4 L Park % (Auto) 7.4 H Eos % (Auto) Lymph # 0.6 L Park # 0.9 H Eos # Seg Neutrophils % 87.3 H Seg Neuts % (Manual) Lymphocytes % (Manual) Eosinophils % (Manual) Seg Neutrophils # 11.2 H Lymphocytes # (Manual) Eosinophils # (Manual) PT INR D-Dimer POC ABG pH POC ABG pCO2 POC ABG pO2 ABG pO2 ABG HCO3 ABG Base Excess ABG Hemoglobin Oxyhemoglobin Sodium Potassium Chloride Carbon Dioxide BUN Creatinine Glucose POC Glucose 142 H 155 H Calcium Phosphorus Magnesium ALT Alkaline Phosphatase Total Creatine Kinase CK-MB (CK-2) Rel Index Troponin T Albumin LDL Cholesterol Direct PTH Intact Salicylates Acetaminophen Crossmatch 03/15/19 03/15/19 03/15/19 04:38 05:31 11:32 WBC RBC Hgb Hct MCH MCHC RDW Lymph % (Auto) Park % (Auto) Eos % (Auto) Lymph # Park # Eos # Seg Neutrophils % Seg Neuts % (Manual) Lymphocytes % (Manual) Eosinophils % (Manual) Seg Neutrophils # Lymphocytes # (Manual) Eosinophils # (Manual) PT INR D-Dimer POC ABG pH POC ABG pCO2 POC ABG pO2 ABG pO2 ABG HCO3 ABG Base Excess ABG Hemoglobin Oxyhemoglobin Sodium 135 L Potassium Chloride 91.9 L Carbon Dioxide BUN 54 H Creatinine 2.8 H Glucose 128 H POC Glucose 160 H 109 H Calcium 11.1 H Phosphorus Magnesium ALT Alkaline Phosphatase 161 H Total Creatine Kinase CK-MB (CK-2) Rel Index Troponin T Albumin 2.3 L LDL Cholesterol Direct PTH Intact Salicylates Acetaminophen Crossmatch 03/15/19 03/15/19 03/16/19 18:15 23:41 05:40 WBC RBC Hgb Hct MCH MCHC RDW Lymph % (Auto) Park % (Auto) Eos % (Auto) Lymph # Park # Eos # Seg Neutrophils % Seg Neuts % (Manual) Lymphocytes % (Manual) Eosinophils % (Manual) Seg Neutrophils # Lymphocytes # (Manual) Eosinophils # (Manual) PT INR D-Dimer POC ABG pH POC ABG pCO2 POC ABG pO2 ABG pO2 ABG HCO3 ABG Base Excess ABG Hemoglobin Oxyhemoglobin Sodium Potassium Chloride Carbon Dioxide BUN Creatinine Glucose POC Glucose 151 H 110 H 163 H Calcium Phosphorus Magnesium ALT Alkaline Phosphatase Total Creatine Kinase CK-MB (CK-2) Rel Index Troponin T Albumin LDL Cholesterol Direct PTH Intact Salicylates Acetaminophen Crossmatch 03/16/19 03/16/19 03/16/19 11:55 17:04 23:58 WBC RBC Hgb Hct MCH MCHC RDW Lymph % (Auto) Park % (Auto) Eos % (Auto) Lymph # Park # Eos # Seg Neutrophils % Seg Neuts % (Manual) Lymphocytes % (Manual) Eosinophils % (Manual) Seg Neutrophils # Lymphocytes # (Manual) Eosinophils # (Manual) PT INR D-Dimer POC ABG pH POC ABG pCO2 POC ABG pO2 ABG pO2 ABG HCO3 ABG Base Excess ABG Hemoglobin Oxyhemoglobin Sodium Potassium Chloride Carbon Dioxide BUN Creatinine Glucose POC Glucose 114 H 147 H 192 H Calcium Phosphorus Magnesium ALT Alkaline Phosphatase Total Creatine Kinase CK-MB (CK-2) Rel Index Troponin T Albumin LDL Cholesterol Direct PTH Intact Salicylates Acetaminophen Crossmatch 03/17/19 03/17/19 03/17/19 05:53 11:17 17:01 WBC RBC Hgb Hct MCH MCHC RDW Lymph % (Auto) Park % (Auto) Eos % (Auto) Lymph # Park # Eos # Seg Neutrophils % Seg Neuts % (Manual) Lymphocytes % (Manual) Eosinophils % (Manual) Seg Neutrophils # Lymphocytes # (Manual) Eosinophils # (Manual) PT INR D-Dimer POC ABG pH POC ABG pCO2 POC ABG pO2 ABG pO2 ABG HCO3 ABG Base Excess ABG Hemoglobin Oxyhemoglobin Sodium Potassium Chloride Carbon Dioxide BUN Creatinine Glucose POC Glucose 151 H 161 H 152 H Calcium Phosphorus Magnesium ALT Alkaline Phosphatase Total Creatine Kinase CK-MB (CK-2) Rel Index Troponin T Albumin LDL Cholesterol Direct PTH Intact Salicylates Acetaminophen Crossmatch 03/17/19 03/18/19 03/18/19 21:47 04:15 04:44 WBC RBC Hgb Hct MCH MCHC RDW Lymph % (Auto) Park % (Auto) Eos % (Auto) Lymph # Park # Eos # Seg Neutrophils % Seg Neuts % (Manual) Lymphocytes % (Manual) Eosinophils % (Manual) Seg Neutrophils # Lymphocytes # (Manual) Eosinophils # (Manual) PT INR D-Dimer POC ABG pH POC ABG pCO2 POC ABG pO2 ABG pO2 102.8 H ABG HCO3 28.3 H ABG Base Excess ABG Hemoglobin 10.4 L Oxyhemoglobin 94.5 L Sodium Potassium Chloride Carbon Dioxide BUN Creatinine Glucose POC Glucose 170 H 150 H Calcium Phosphorus Magnesium ALT Alkaline Phosphatase Total Creatine Kinase CK-MB (CK-2) Rel Index Troponin T Albumin LDL Cholesterol Direct PTH Intact Salicylates Acetaminophen Crossmatch 03/18/19 03/18/19 03/18/19 06:38 12:12 17:47 WBC RBC Hgb Hct MCH MCHC RDW Lymph % (Auto) Park % (Auto) Eos % (Auto) Lymph # Park # Eos # Seg Neutrophils % Seg Neuts % (Manual) Lymphocytes % (Manual) Eosinophils % (Manual) Seg Neutrophils # Lymphocytes # (Manual) Eosinophils # (Manual) PT INR D-Dimer POC ABG pH 7.510 H POC ABG pCO2 POC ABG pO2 164 H ABG pO2 ABG HCO3 ABG Base Excess ABG Hemoglobin Oxyhemoglobin Sodium Potassium Chloride Carbon Dioxide BUN Creatinine Glucose POC Glucose 145 H 149 H Calcium Phosphorus Magnesium ALT Alkaline Phosphatase Total Creatine Kinase CK-MB (CK-2) Rel Index Troponin T Albumin LDL Cholesterol Direct PTH Intact Salicylates Acetaminophen Crossmatch 03/18/19 03/19/19 03/19/19 23:25 01:11 04:23 WBC 15.6 H RBC 2.51 L Hgb 6.5 L Hct 21.6 L MCH 26 L MCHC 30 L RDW 19.8 H Lymph % (Auto) 6.0 L Park % (Auto) Eos % (Auto) Lymph # 0.9 L Park # 1.0 H Eos # Seg Neutrophils % 85.5 H Seg Neuts % (Manual) Lymphocytes % (Manual) Eosinophils % (Manual) Seg Neutrophils # 13.4 H Lymphocytes # (Manual) Eosinophils # (Manual) PT INR D-Dimer POC ABG pH POC ABG pCO2 POC ABG pO2 ABG pO2 78.3 L ABG HCO3 30.7 H ABG Base Excess 5.8 H ABG Hemoglobin 5.8 L Oxyhemoglobin 94.6 L Sodium Potassium Chloride Carbon Dioxide BUN Creatinine Glucose POC Glucose 190 H Calcium Phosphorus Magnesium ALT Alkaline Phosphatase Total Creatine Kinase CK-MB (CK-2) Rel Index Troponin T Albumin LDL Cholesterol Direct PTH Intact Salicylates Acetaminophen Crossmatch 03/19/19 03/19/19 03/19/19 05:22 05:35 08:54 WBC RBC Hgb Hct MCH MCHC RDW Lymph % (Auto) Park % (Auto) Eos % (Auto) Lymph # Park # Eos # Seg Neutrophils % Seg Neuts % (Manual) Lymphocytes % (Manual) Eosinophils % (Manual) Seg Neutrophils # Lymphocytes # (Manual) Eosinophils # (Manual) PT INR D-Dimer POC ABG pH POC ABG pCO2 POC ABG pO2 ABG pO2 ABG HCO3 ABG Base Excess ABG Hemoglobin Oxyhemoglobin Sodium Potassium Chloride Carbon Dioxide BUN Creatinine Glucose POC Glucose 167 H Calcium Phosphorus Magnesium ALT Alkaline Phosphatase Total Creatine Kinase CK-MB (CK-2) Rel Index Troponin T Albumin LDL Cholesterol Direct PTH Intact Salicylates Acetaminophen Crossmatch See Detail See Detail 03/19/19 03/19/19 03/19/19 12:36 17:02 23:25 WBC RBC Hgb Hct MCH MCHC RDW Lymph % (Auto) Park % (Auto) Eos % (Auto) Lymph # Park # Eos # Seg Neutrophils % Seg Neuts % (Manual) Lymphocytes % (Manual) Eosinophils % (Manual) Seg Neutrophils # Lymphocytes # (Manual) Eosinophils # (Manual) PT INR D-Dimer POC ABG pH POC ABG pCO2 POC ABG pO2 ABG pO2 ABG HCO3 ABG Base Excess ABG Hemoglobin Oxyhemoglobin Sodium Potassium Chloride Carbon Dioxide BUN Creatinine Glucose POC Glucose 167 H 135 H 136 H Calcium Phosphorus Magnesium ALT Alkaline Phosphatase Total Creatine Kinase CK-MB (CK-2) Rel Index Troponin T Albumin LDL Cholesterol Direct PTH Intact Salicylates Acetaminophen Crossmatch 03/20/19 03/20/19 03/20/19 05:38 08:40 08:40 WBC RBC 2.61 L Hgb 7.1 L Hct 22.0 L MCH 27 L MCHC RDW 19.6 H Lymph % (Auto) 8.2 L Park % (Auto) 8.3 H Eos % (Auto) 5.7 H Lymph # 0.8 L Park # Eos # 0.5 H Seg Neutrophils % 77.3 H Seg Neuts % (Manual) Lymphocytes % (Manual) Eosinophils % (Manual) Seg Neutrophils # Lymphocytes # (Manual) Eosinophils # (Manual) PT INR D-Dimer POC ABG pH POC ABG pCO2 POC ABG pO2 ABG pO2 ABG HCO3 ABG Base Excess ABG Hemoglobin Oxyhemoglobin Sodium Potassium Chloride 95.9 L Carbon Dioxide BUN 69 H Creatinine 2.8 H Glucose 115 H POC Glucose 134 H Calcium 10.5 H Phosphorus Magnesium ALT Alkaline Phosphatase Total Creatine Kinase CK-MB (CK-2) Rel Index Troponin T Albumin LDL Cholesterol Direct PTH Intact Salicylates Acetaminophen Crossmatch 03/20/19 03/20/19 03/20/19 12:13 18:04 23:49 WBC RBC Hgb Hct MCH MCHC RDW Lymph % (Auto) Park % (Auto) Eos % (Auto) Lymph # Park # Eos # Seg Neutrophils % Seg Neuts % (Manual) Lymphocytes % (Manual) Eosinophils % (Manual) Seg Neutrophils # Lymphocytes # (Manual) Eosinophils # (Manual) PT INR D-Dimer POC ABG pH POC ABG pCO2 POC ABG pO2 ABG pO2 ABG HCO3 ABG Base Excess ABG Hemoglobin Oxyhemoglobin Sodium Potassium Chloride Carbon Dioxide BUN Creatinine Glucose POC Glucose 144 H 165 H 172 H Calcium Phosphorus Magnesium ALT Alkaline Phosphatase Total Creatine Kinase CK-MB (CK-2) Rel Index Troponin T Albumin LDL Cholesterol Direct PTH Intact Salicylates Acetaminophen Crossmatch 03/21/19 03/21/19 03/21/19 05:00 06:29 06:30 WBC RBC 2.72 L Hgb 7.4 L Hct 22.9 L MCH 27 L MCHC RDW 19.4 H Lymph % (Auto) Park % (Auto) Eos % (Auto) Lymph # Park # Eos # Seg Neutrophils % Seg Neuts % (Manual) 81.0 H Lymphocytes % (Manual) 8.0 L Eosinophils % (Manual) 8.0 H Seg Neutrophils # Lymphocytes # (Manual) 0.7 L Eosinophils # (Manual) 0.7 H PT INR D-Dimer POC ABG pH POC ABG pCO2 POC ABG pO2 ABG pO2 ABG HCO3 ABG Base Excess ABG Hemoglobin Oxyhemoglobin Sodium Potassium Chloride Carbon Dioxide 33 H BUN 43 H Creatinine 1.7 H Glucose 145 H POC Glucose 156 H Calcium Phosphorus Magnesium ALT Alkaline Phosphatase 212 H Total Creatine Kinase CK-MB (CK-2) Rel Index Troponin T Albumin 2.2 L LDL Cholesterol Direct PTH Intact Salicylates Acetaminophen Crossmatch 03/21/19 03/21/19 03/22/19 12:02 18:07 00:21 WBC RBC Hgb Hct MCH MCHC RDW Lymph % (Auto) Park % (Auto) Eos % (Auto) Lymph # Park # Eos # Seg Neutrophils % Seg Neuts % (Manual) Lymphocytes % (Manual) Eosinophils % (Manual) Seg Neutrophils # Lymphocytes # (Manual) Eosinophils # (Manual) PT INR D-Dimer POC ABG pH POC ABG pCO2 POC ABG pO2 ABG pO2 ABG HCO3 ABG Base Excess ABG Hemoglobin Oxyhemoglobin Sodium Potassium Chloride Carbon Dioxide BUN Creatinine Glucose POC Glucose 163 H 144 H 153 H Calcium Phosphorus Magnesium ALT Alkaline Phosphatase Total Creatine Kinase CK-MB (CK-2) Rel Index Troponin T Albumin LDL Cholesterol Direct PTH Intact Salicylates Acetaminophen Crossmatch 03/22/19 03/22/19 03/22/19 05:23 05:23 05:31 WBC RBC 2.58 L Hgb 7.1 L Hct 21.8 L MCH 27 L MCHC RDW 19.2 H Lymph % (Auto) Park % (Auto) Eos % (Auto) Lymph # Park # Eos # Seg Neutrophils % Seg Neuts % (Manual) Lymphocytes % (Manual) Eosinophils % (Manual) Seg Neutrophils # Lymphocytes # (Manual) Eosinophils # (Manual) PT INR D-Dimer POC ABG pH POC ABG pCO2 POC ABG pO2 ABG pO2 ABG HCO3 ABG Base Excess ABG Hemoglobin Oxyhemoglobin Sodium 147 H Potassium Chloride Carbon Dioxide BUN 68 H Creatinine 2.5 H Glucose POC Glucose 116 H Calcium 10.3 H Phosphorus Magnesium ALT Alkaline Phosphatase Total Creatine Kinase CK-MB (CK-2) Rel Index Troponin T Albumin LDL Cholesterol Direct PTH Intact Salicylates Acetaminophen Crossmatch 03/22/19 03/22/19 03/22/19 08:48 12:37 17:35 WBC RBC Hgb Hct MCH MCHC RDW Lymph % (Auto) Park % (Auto) Eos % (Auto) Lymph # Park # Eos # Seg Neutrophils % Seg Neuts % (Manual) Lymphocytes % (Manual) Eosinophils % (Manual) Seg Neutrophils # Lymphocytes # (Manual) Eosinophils # (Manual) PT INR D-Dimer POC ABG pH POC ABG pCO2 POC ABG pO2 ABG pO2 ABG HCO3 ABG Base Excess ABG Hemoglobin Oxyhemoglobin Sodium Potassium Chloride Carbon Dioxide BUN Creatinine Glucose POC Glucose 143 H 155 H Calcium Phosphorus Magnesium ALT Alkaline Phosphatase Total Creatine Kinase CK-MB (CK-2) Rel Index Troponin T Albumin LDL Cholesterol Direct PTH Intact Salicylates Acetaminophen Crossmatch See Detail 03/23/19 03/23/19 03/23/19 00:07 04:00 04:00 WBC 11.2 H RBC 2.32 L Hgb 6.4 L Hct 19.7 L* MCH MCHC RDW 19.4 H Lymph % (Auto) Park % (Auto) Eos % (Auto) Lymph # Park # Eos # Seg Neutrophils % Seg Neuts % (Manual) Lymphocytes % (Manual) Eosinophils % (Manual) Seg Neutrophils # Lymphocytes # (Manual) Eosinophils # (Manual) PT INR D-Dimer POC ABG pH POC ABG pCO2 POC ABG pO2 ABG pO2 ABG HCO3 ABG Base Excess ABG Hemoglobin Oxyhemoglobin Sodium 147 H Potassium 5.2 H Chloride Carbon Dioxide BUN 86 H Creatinine 3.2 H Glucose 128 H POC Glucose 135 H Calcium 10.3 H Phosphorus Magnesium ALT Alkaline Phosphatase Total Creatine Kinase CK-MB (CK-2) Rel Index Troponin T Albumin LDL Cholesterol Direct PTH Intact Salicylates Acetaminophen Crossmatch 03/23/19 03/23/19 03/23/19 05:21 11:36 11:36 WBC RBC Hgb 7.9 L Hct 25.0 L MCH MCHC RDW Lymph % (Auto) Park % (Auto) Eos % (Auto) Lymph # Park # Eos # Seg Neutrophils % Seg Neuts % (Manual) Lymphocytes % (Manual) Eosinophils % (Manual) Seg Neutrophils # Lymphocytes # (Manual) Eosinophils # (Manual) PT INR D-Dimer POC ABG pH POC ABG pCO2 POC ABG pO2 ABG pO2 ABG HCO3 ABG Base Excess ABG Hemoglobin Oxyhemoglobin Sodium Potassium Chloride Carbon Dioxide BUN Creatinine Glucose POC Glucose 132 H 147 H Calcium Phosphorus Magnesium ALT Alkaline Phosphatase Total Creatine Kinase CK-MB (CK-2) Rel Index Troponin T Albumin LDL Cholesterol Direct PTH Intact Salicylates Acetaminophen Crossmatch 03/23/19 03/24/19 03/24/19 17:31 01:22 04:20 WBC 12.2 H RBC 3.05 L Hgb 8.3 L Hct 25.9 L MCH 27 L MCHC RDW 18.7 H Lymph % (Auto) Park % (Auto) Eos % (Auto) Lymph # Park # Eos # Seg Neutrophils % Seg Neuts % (Manual) Lymphocytes % (Manual) Eosinophils % (Manual) Seg Neutrophils # Lymphocytes # (Manual) Eosinophils # (Manual) PT INR D-Dimer POC ABG pH POC ABG pCO2 POC ABG pO2 ABG pO2 ABG HCO3 ABG Base Excess ABG Hemoglobin Oxyhemoglobin Sodium Potassium Chloride Carbon Dioxide BUN Creatinine Glucose POC Glucose 182 H 113 H Calcium Phosphorus Magnesium ALT Alkaline Phosphatase Total Creatine Kinase CK-MB (CK-2) Rel Index Troponin T Albumin LDL Cholesterol Direct PTH Intact Salicylates Acetaminophen Crossmatch 03/24/19 03/24/19 03/24/19 04:20 11:59 18:14 WBC RBC Hgb Hct MCH MCHC RDW Lymph % (Auto) Park % (Auto) Eos % (Auto) Lymph # Park # Eos # Seg Neutrophils % Seg Neuts % (Manual) Lymphocytes % (Manual) Eosinophils % (Manual) Seg Neutrophils # Lymphocytes # (Manual) Eosinophils # (Manual) PT INR D-Dimer POC ABG pH POC ABG pCO2 POC ABG pO2 ABG pO2 ABG HCO3 ABG Base Excess ABG Hemoglobin Oxyhemoglobin Sodium Potassium Chloride 94.8 L Carbon Dioxide 32 H BUN 53 H Creatinine 2.3 H Glucose POC Glucose 163 H 134 H Calcium Phosphorus Magnesium ALT Alkaline Phosphatase Total Creatine Kinase CK-MB (CK-2) Rel Index Troponin T Albumin LDL Cholesterol Direct PTH Intact Salicylates Acetaminophen Crossmatch 03/24/19 03/25/19 03/25/19 23:15 05:52 12:02 WBC RBC Hgb Hct MCH MCHC RDW Lymph % (Auto) Park % (Auto) Eos % (Auto) Lymph # Park # Eos # Seg Neutrophils % Seg Neuts % (Manual) Lymphocytes % (Manual) Eosinophils % (Manual) Seg Neutrophils # Lymphocytes # (Manual) Eosinophils # (Manual) PT INR D-Dimer POC ABG pH POC ABG pCO2 POC ABG pO2 ABG pO2 ABG HCO3 ABG Base Excess ABG Hemoglobin Oxyhemoglobin Sodium Potassium Chloride Carbon Dioxide BUN Creatinine Glucose POC Glucose 129 H 123 H 125 H Calcium Phosphorus Magnesium ALT Alkaline Phosphatase Total Creatine Kinase CK-MB (CK-2) Rel Index Troponin T Albumin LDL Cholesterol Direct PTH Intact Salicylates Acetaminophen Crossmatch 03/25/19 03/26/19 03/26/19 17:27 00:30 05:35 WBC RBC 3.01 L Hgb 8.1 L Hct 25.7 L MCH 27 L MCHC RDW 19.2 H Lymph % (Auto) 11.4 L Park % (Auto) Eos % (Auto) 8.0 H Lymph # 1.0 L Park # Eos # 0.7 H Seg Neutrophils % 73.9 H Seg Neuts % (Manual) Lymphocytes % (Manual) Eosinophils % (Manual) Seg Neutrophils # Lymphocytes # (Manual) Eosinophils # (Manual) PT INR D-Dimer POC ABG pH POC ABG pCO2 POC ABG pO2 ABG pO2 ABG HCO3 ABG Base Excess ABG Hemoglobin Oxyhemoglobin Sodium Potassium Chloride Carbon Dioxide BUN Creatinine Glucose POC Glucose 130 H 129 H Calcium Phosphorus Magnesium ALT Alkaline Phosphatase Total Creatine Kinase CK-MB (CK-2) Rel Index Troponin T Albumin LDL Cholesterol Direct PTH Intact Salicylates Acetaminophen Crossmatch 03/26/19 03/26/19 03/26/19 05:35 05:45 12:16 WBC RBC Hgb Hct MCH MCHC RDW Lymph % (Auto) Park % (Auto) Eos % (Auto) Lymph # Park # Eos # Seg Neutrophils % Seg Neuts % (Manual) Lymphocytes % (Manual) Eosinophils % (Manual) Seg Neutrophils # Lymphocytes # (Manual) Eosinophils # (Manual) PT INR D-Dimer POC ABG pH POC ABG pCO2 POC ABG pO2 ABG pO2 ABG HCO3 ABG Base Excess ABG Hemoglobin Oxyhemoglobin Sodium Potassium Chloride 94.9 L Carbon Dioxide 31 H BUN 44 H Creatinine 2.0 H Glucose POC Glucose 118 H 107 H Calcium Phosphorus Magnesium ALT Alkaline Phosphatase Total Creatine Kinase CK-MB (CK-2) Rel Index Troponin T Albumin LDL Cholesterol Direct PTH Intact Salicylates Acetaminophen Crossmatch 03/26/19 03/27/19 03/27/19 17:56 00:36 05:37 WBC RBC Hgb Hct MCH MCHC RDW Lymph % (Auto) Park % (Auto) Eos % (Auto) Lymph # Park # Eos # Seg Neutrophils % Seg Neuts % (Manual) Lymphocytes % (Manual) Eosinophils % (Manual) Seg Neutrophils # Lymphocytes # (Manual) Eosinophils # (Manual) PT INR D-Dimer POC ABG pH POC ABG pCO2 POC ABG pO2 ABG pO2 ABG HCO3 ABG Base Excess ABG Hemoglobin Oxyhemoglobin Sodium Potassium Chloride Carbon Dioxide BUN Creatinine Glucose POC Glucose 107 H 110 H 122 H Calcium Phosphorus Magnesium ALT Alkaline Phosphatase Total Creatine Kinase CK-MB (CK-2) Rel Index Troponin T Albumin LDL Cholesterol Direct PTH Intact Salicylates Acetaminophen Crossmatch 03/27/19 03/27/19 03/28/19 11:22 18:00 05:17 WBC RBC Hgb Hct MCH MCHC RDW Lymph % (Auto) Park % (Auto) Eos % (Auto) Lymph # Park # Eos # Seg Neutrophils % Seg Neuts % (Manual) Lymphocytes % (Manual) Eosinophils % (Manual) Seg Neutrophils # Lymphocytes # (Manual) Eosinophils # (Manual) PT INR D-Dimer POC ABG pH POC ABG pCO2 POC ABG pO2 ABG pO2 ABG HCO3 ABG Base Excess ABG Hemoglobin Oxyhemoglobin Sodium Potassium Chloride Carbon Dioxide BUN Creatinine Glucose POC Glucose 120 H 111 H 107 H Calcium Phosphorus Magnesium ALT Alkaline Phosphatase Total Creatine Kinase CK-MB (CK-2) Rel Index Troponin T Albumin LDL Cholesterol Direct PTH Intact Salicylates Acetaminophen Crossmatch 03/28/19 03/28/19 03/29/19 12:27 18:08 05:47 WBC RBC Hgb Hct MCH MCHC RDW Lymph % (Auto) Park % (Auto) Eos % (Auto) Lymph # Park # Eos # Seg Neutrophils % Seg Neuts % (Manual) Lymphocytes % (Manual) Eosinophils % (Manual) Seg Neutrophils # Lymphocytes # (Manual) Eosinophils # (Manual) PT INR D-Dimer POC ABG pH POC ABG pCO2 POC ABG pO2 ABG pO2 ABG HCO3 ABG Base Excess ABG Hemoglobin Oxyhemoglobin Sodium Potassium Chloride Carbon Dioxide BUN Creatinine Glucose POC Glucose 114 H 121 H 112 H Calcium Phosphorus Magnesium ALT Alkaline Phosphatase Total Creatine Kinase CK-MB (CK-2) Rel Index Troponin T Albumin LDL Cholesterol Direct PTH Intact Salicylates Acetaminophen Crossmatch 03/29/19 03/29/19 03/30/19 12:14 18:08 00:31 WBC RBC Hgb Hct MCH MCHC RDW Lymph % (Auto) Park % (Auto) Eos % (Auto) Lymph # Park # Eos # Seg Neutrophils % Seg Neuts % (Manual) Lymphocytes % (Manual) Eosinophils % (Manual) Seg Neutrophils # Lymphocytes # (Manual) Eosinophils # (Manual) PT INR D-Dimer POC ABG pH POC ABG pCO2 POC ABG pO2 ABG pO2 ABG HCO3 ABG Base Excess ABG Hemoglobin Oxyhemoglobin Sodium Potassium Chloride Carbon Dioxide BUN Creatinine Glucose POC Glucose 117 H 140 H 114 H Calcium Phosphorus Magnesium ALT Alkaline Phosphatase Total Creatine Kinase CK-MB (CK-2) Rel Index Troponin T Albumin LDL Cholesterol Direct PTH Intact Salicylates Acetaminophen Crossmatch 03/30/19 03/30/19 03/30/19 10:13 10:13 23:53 WBC RBC 2.81 L Hgb 7.7 L Hct 24.3 L MCH 27 L MCHC RDW 19.0 H Lymph % (Auto) 12.2 L Park % (Auto) Eos % (Auto) 7.9 H Lymph # 1.0 L Park # Eos # 0.6 H Seg Neutrophils % 72.3 H Seg Neuts % (Manual) Lymphocytes % (Manual) Eosinophils % (Manual) Seg Neutrophils # Lymphocytes # (Manual) Eosinophils # (Manual) PT INR D-Dimer POC ABG pH POC ABG pCO2 POC ABG pO2 ABG pO2 ABG HCO3 ABG Base Excess ABG Hemoglobin Oxyhemoglobin Sodium Potassium 5.1 H Chloride 96.5 L Carbon Dioxide BUN 73 H Creatinine 3.9 H D Glucose POC Glucose 114 H Calcium 10.3 H Phosphorus 6.30 H Magnesium 2.70 H ALT Alkaline Phosphatase 185 H Total Creatine Kinase CK-MB (CK-2) Rel Index Troponin T Albumin 2.6 L LDL Cholesterol Direct PTH Intact Salicylates Acetaminophen Crossmatch 03/31/19 03/31/19 03/31/19 05:45 10:26 10:26 WBC RBC 3.01 L Hgb 8.2 L Hct 26.4 L MCH 27 L MCHC 31 L RDW 20.3 H Lymph % (Auto) 13.3 L Park % (Auto) Eos % (Auto) 7.2 H Lymph # 1.1 L Park # Eos # 0.6 H Seg Neutrophils % 72.1 H Seg Neuts % (Manual) Lymphocytes % (Manual) Eosinophils % (Manual) Seg Neutrophils # Lymphocytes # (Manual) Eosinophils # (Manual) PT INR D-Dimer POC ABG pH POC ABG pCO2 POC ABG pO2 ABG pO2 ABG HCO3 ABG Base Excess ABG Hemoglobin Oxyhemoglobin Sodium Potassium Chloride 96.9 L Carbon Dioxide 33 H BUN 37 H Creatinine 2.4 H Glucose POC Glucose 108 H Calcium 10.3 H Phosphorus Magnesium ALT Alkaline Phosphatase Total Creatine Kinase CK-MB (CK-2) Rel Index Troponin T Albumin LDL Cholesterol Direct PTH Intact Salicylates Acetaminophen Crossmatch 03/31/19 04/01/19 04/01/19 12:38 05:48 12:06 WBC RBC Hgb Hct MCH MCHC RDW Lymph % (Auto) Park % (Auto) Eos % (Auto) Lymph # Park # Eos # Seg Neutrophils % Seg Neuts % (Manual) Lymphocytes % (Manual) Eosinophils % (Manual) Seg Neutrophils # Lymphocytes # (Manual) Eosinophils # (Manual) PT INR D-Dimer POC ABG pH POC ABG pCO2 POC ABG pO2 ABG pO2 ABG HCO3 ABG Base Excess ABG Hemoglobin Oxyhemoglobin Sodium Potassium Chloride Carbon Dioxide BUN Creatinine Glucose POC Glucose 108 H 114 H 111 H Calcium Phosphorus Magnesium ALT Alkaline Phosphatase Total Creatine Kinase CK-MB (CK-2) Rel Index Troponin T Albumin LDL Cholesterol Direct PTH Intact Salicylates Acetaminophen Crossmatch 04/01/19 04/02/19 04/04/19 18:24 00:36 23:55 WBC RBC Hgb Hct MCH MCHC RDW Lymph % (Auto) Park % (Auto) Eos % (Auto) Lymph # Park # Eos # Seg Neutrophils % Seg Neuts % (Manual) Lymphocytes % (Manual) Eosinophils % (Manual) Seg Neutrophils # Lymphocytes # (Manual) Eosinophils # (Manual) PT INR D-Dimer POC ABG pH POC ABG pCO2 POC ABG pO2 ABG pO2 ABG HCO3 ABG Base Excess ABG Hemoglobin Oxyhemoglobin Sodium Potassium Chloride Carbon Dioxide BUN Creatinine Glucose POC Glucose 113 H 117 H 109 H Calcium Phosphorus Magnesium ALT Alkaline Phosphatase Total Creatine Kinase CK-MB (CK-2) Rel Index Troponin T Albumin LDL Cholesterol Direct PTH Intact Salicylates Acetaminophen Crossmatch 04/06/19 04/06/19 04/06/19 00:11 06:02 23:30 WBC RBC Hgb Hct MCH MCHC RDW Lymph % (Auto) Park % (Auto) Eos % (Auto) Lymph # Park # Eos # Seg Neutrophils % Seg Neuts % (Manual) Lymphocytes % (Manual) Eosinophils % (Manual) Seg Neutrophils # Lymphocytes # (Manual) Eosinophils # (Manual) PT INR D-Dimer POC ABG pH POC ABG pCO2 POC ABG pO2 ABG pO2 ABG HCO3 ABG Base Excess ABG Hemoglobin Oxyhemoglobin Sodium Potassium Chloride Carbon Dioxide BUN Creatinine Glucose POC Glucose 116 H 112 H 112 H Calcium Phosphorus Magnesium ALT Alkaline Phosphatase Total Creatine Kinase CK-MB (CK-2) Rel Index Troponin T Albumin LDL Cholesterol Direct PTH Intact Salicylates Acetaminophen Crossmatch 04/08/19 04/08/19 04/08/19 02:23 06:19 13:01 WBC RBC Hgb Hct MCH MCHC RDW Lymph % (Auto) Park % (Auto) Eos % (Auto) Lymph # Park # Eos # Seg Neutrophils % Seg Neuts % (Manual) Lymphocytes % (Manual) Eosinophils % (Manual) Seg Neutrophils # Lymphocytes # (Manual) Eosinophils # (Manual) PT INR D-Dimer POC ABG pH POC ABG pCO2 POC ABG pO2 ABG pO2 ABG HCO3 ABG Base Excess ABG Hemoglobin Oxyhemoglobin Sodium Potassium Chloride Carbon Dioxide BUN Creatinine Glucose POC Glucose 144 H 126 H 118 H Calcium Phosphorus Magnesium ALT Alkaline Phosphatase Total Creatine Kinase CK-MB (CK-2) Rel Index Troponin T Albumin LDL Cholesterol Direct PTH Intact Salicylates Acetaminophen Crossmatch 04/08/19 04/09/19 04/10/19 23:28 05:52 06:34 WBC RBC Hgb Hct MCH MCHC RDW Lymph % (Auto) Park % (Auto) Eos % (Auto) Lymph # Park # Eos # Seg Neutrophils % Seg Neuts % (Manual) Lymphocytes % (Manual) Eosinophils % (Manual) Seg Neutrophils # Lymphocytes # (Manual) Eosinophils # (Manual) PT INR D-Dimer POC ABG pH POC ABG pCO2 POC ABG pO2 ABG pO2 ABG HCO3 ABG Base Excess ABG Hemoglobin Oxyhemoglobin Sodium Potassium Chloride Carbon Dioxide BUN Creatinine Glucose POC Glucose 119 H 116 H 114 H Calcium Phosphorus Magnesium ALT Alkaline Phosphatase Total Creatine Kinase CK-MB (CK-2) Rel Index Troponin T Albumin LDL Cholesterol Direct PTH Intact Salicylates Acetaminophen Crossmatch 04/10/19 04/10/19 04/11/19 12:34 18:59 00:36 WBC RBC Hgb Hct MCH MCHC RDW Lymph % (Auto) Park % (Auto) Eos % (Auto) Lymph # Park # Eos # Seg Neutrophils % Seg Neuts % (Manual) Lymphocytes % (Manual) Eosinophils % (Manual) Seg Neutrophils # Lymphocytes # (Manual) Eosinophils # (Manual) PT INR D-Dimer POC ABG pH POC ABG pCO2 POC ABG pO2 ABG pO2 ABG HCO3 ABG Base Excess ABG Hemoglobin Oxyhemoglobin Sodium Potassium Chloride Carbon Dioxide BUN Creatinine Glucose POC Glucose 112 H 109 H 124 H Calcium Phosphorus Magnesium ALT Alkaline Phosphatase Total Creatine Kinase CK-MB (CK-2) Rel Index Troponin T Albumin LDL Cholesterol Direct PTH Intact Salicylates Acetaminophen Crossmatch 04/11/19 04/11/19 04/12/19 08:01 17:25 02:18 WBC RBC Hgb Hct MCH MCHC RDW Lymph % (Auto) Park % (Auto) Eos % (Auto) Lymph # Park # Eos # Seg Neutrophils % Seg Neuts % (Manual) Lymphocytes % (Manual) Eosinophils % (Manual) Seg Neutrophils # Lymphocytes # (Manual) Eosinophils # (Manual) PT INR D-Dimer POC ABG pH POC ABG pCO2 POC ABG pO2 ABG pO2 ABG HCO3 ABG Base Excess ABG Hemoglobin Oxyhemoglobin Sodium Potassium Chloride Carbon Dioxide BUN Creatinine Glucose POC Glucose 118 H 106 H 125 H Calcium Phosphorus Magnesium ALT Alkaline Phosphatase Total Creatine Kinase CK-MB (CK-2) Rel Index Troponin T Albumin LDL Cholesterol Direct PTH Intact Salicylates Acetaminophen Crossmatch 04/12/19 04/12/19 04/12/19 06:24 12:22 17:13 WBC RBC Hgb Hct MCH MCHC RDW Lymph % (Auto) Park % (Auto) Eos % (Auto) Lymph # Park # Eos # Seg Neutrophils % Seg Neuts % (Manual) Lymphocytes % (Manual) Eosinophils % (Manual) Seg Neutrophils # Lymphocytes # (Manual) Eosinophils # (Manual) PT INR D-Dimer POC ABG pH POC ABG pCO2 POC ABG pO2 ABG pO2 ABG HCO3 ABG Base Excess ABG Hemoglobin Oxyhemoglobin Sodium Potassium Chloride Carbon Dioxide BUN Creatinine Glucose POC Glucose 128 H 114 H 110 H Calcium Phosphorus Magnesium ALT Alkaline Phosphatase Total Creatine Kinase CK-MB (CK-2) Rel Index Troponin T Albumin LDL Cholesterol Direct PTH Intact Salicylates Acetaminophen Crossmatch 04/13/19 04/13/19 04/13/19 06:59 07:31 07:31 WBC RBC 3.34 L Hgb 8.9 L Hct 28.6 L MCH 27 L MCHC 31 L RDW 19.6 H Lymph % (Auto) Park % (Auto) Eos % (Auto) Lymph # Park # Eos # Seg Neutrophils % Seg Neuts % (Manual) Lymphocytes % (Manual) Eosinophils % (Manual) Seg Neutrophils # Lymphocytes # (Manual) Eosinophils # (Manual) PT INR D-Dimer POC ABG pH POC ABG pCO2 POC ABG pO2 ABG pO2 ABG HCO3 ABG Base Excess ABG Hemoglobin Oxyhemoglobin Sodium Potassium Chloride 96.4 L Carbon Dioxide 33 H BUN 66 H Creatinine 4.5 H Glucose 103 H POC Glucose 107 H Calcium Phosphorus Magnesium ALT Alkaline Phosphatase Total Creatine Kinase CK-MB (CK-2) Rel Index Troponin T Albumin LDL Cholesterol Direct PTH Intact Salicylates Acetaminophen Crossmatch 04/13/19 04/14/19 04/14/19 23:43 05:50 13:07 WBC RBC Hgb Hct MCH MCHC RDW Lymph % (Auto) Park % (Auto) Eos % (Auto) Lymph # Park # Eos # Seg Neutrophils % Seg Neuts % (Manual) Lymphocytes % (Manual) Eosinophils % (Manual) Seg Neutrophils # Lymphocytes # (Manual) Eosinophils # (Manual) PT INR D-Dimer POC ABG pH POC ABG pCO2 POC ABG pO2 ABG pO2 ABG HCO3 ABG Base Excess ABG Hemoglobin Oxyhemoglobin Sodium Potassium Chloride Carbon Dioxide BUN Creatinine Glucose POC Glucose 119 H 112 H 112 H Calcium Phosphorus Magnesium ALT Alkaline Phosphatase Total Creatine Kinase CK-MB (CK-2) Rel Index Troponin T Albumin LDL Cholesterol Direct PTH Intact Salicylates Acetaminophen Crossmatch 04/14/19 04/15/19 04/15/19 18:35 01:18 05:17 WBC RBC Hgb Hct MCH MCHC RDW Lymph % (Auto) Park % (Auto) Eos % (Auto) Lymph # Park # Eos # Seg Neutrophils % Seg Neuts % (Manual) Lymphocytes % (Manual) Eosinophils % (Manual) Seg Neutrophils # Lymphocytes # (Manual) Eosinophils # (Manual) PT INR D-Dimer POC ABG pH POC ABG pCO2 POC ABG pO2 ABG pO2 ABG HCO3 ABG Base Excess ABG Hemoglobin Oxyhemoglobin Sodium Potassium Chloride Carbon Dioxide BUN Creatinine Glucose POC Glucose 114 H 114 H 114 H Calcium Phosphorus Magnesium ALT Alkaline Phosphatase Total Creatine Kinase CK-MB (CK-2) Rel Index Troponin T Albumin LDL Cholesterol Direct PTH Intact Salicylates Acetaminophen Crossmatch 04/15/19 04/15/19 04/16/19 11:50 23:39 05:41 WBC RBC Hgb Hct MCH MCHC RDW Lymph % (Auto) Park % (Auto) Eos % (Auto) Lymph # Park # Eos # Seg Neutrophils % Seg Neuts % (Manual) Lymphocytes % (Manual) Eosinophils % (Manual) Seg Neutrophils # Lymphocytes # (Manual) Eosinophils # (Manual) PT INR D-Dimer POC ABG pH POC ABG pCO2 POC ABG pO2 ABG pO2 ABG HCO3 ABG Base Excess ABG Hemoglobin Oxyhemoglobin Sodium Potassium Chloride Carbon Dioxide BUN Creatinine Glucose POC Glucose 109 H 115 H 125 H Calcium Phosphorus Magnesium ALT Alkaline Phosphatase Total Creatine Kinase CK-MB (CK-2) Rel Index Troponin T Albumin LDL Cholesterol Direct PTH Intact Salicylates Acetaminophen Crossmatch 04/16/19 04/17/19 04/17/19 12:53 01:00 12:38 WBC RBC Hgb Hct MCH MCHC RDW Lymph % (Auto) Park % (Auto) Eos % (Auto) Lymph # Park # Eos # Seg Neutrophils % Seg Neuts % (Manual) Lymphocytes % (Manual) Eosinophils % (Manual) Seg Neutrophils # Lymphocytes # (Manual) Eosinophils # (Manual) PT INR D-Dimer POC ABG pH POC ABG pCO2 POC ABG pO2 ABG pO2 ABG HCO3 ABG Base Excess ABG Hemoglobin Oxyhemoglobin Sodium Potassium Chloride Carbon Dioxide BUN Creatinine Glucose POC Glucose 121 H 127 H 159 H Calcium Phosphorus Magnesium ALT Alkaline Phosphatase Total Creatine Kinase CK-MB (CK-2) Rel Index Troponin T Albumin LDL Cholesterol Direct PTH Intact Salicylates Acetaminophen Crossmatch 04/17/19 04/17/19 04/18/19 18:27 23:36 07:19 WBC RBC 3.49 L Hgb 9.0 L Hct 29.9 L MCH 26 L MCHC 30 L RDW 20.0 H Lymph % (Auto) Park % (Auto) Eos % (Auto) Lymph # Park # Eos # Seg Neutrophils % Seg Neuts % (Manual) Lymphocytes % (Manual) Eosinophils % (Manual) Seg Neutrophils # Lymphocytes # (Manual) Eosinophils # (Manual) PT INR D-Dimer POC ABG pH POC ABG pCO2 POC ABG pO2 ABG pO2 ABG HCO3 ABG Base Excess ABG Hemoglobin Oxyhemoglobin Sodium Potassium Chloride Carbon Dioxide BUN Creatinine Glucose POC Glucose 109 H 134 H Calcium Phosphorus Magnesium ALT Alkaline Phosphatase Total Creatine Kinase CK-MB (CK-2) Rel Index Troponin T Albumin LDL Cholesterol Direct PTH Intact Salicylates Acetaminophen Crossmatch 04/18/19 04/18/19 04/18/19 07:19 12:16 17:09 WBC RBC Hgb Hct MCH MCHC RDW Lymph % (Auto) Park % (Auto) Eos % (Auto) Lymph # Park # Eos # Seg Neutrophils % Seg Neuts % (Manual) Lymphocytes % (Manual) Eosinophils % (Manual) Seg Neutrophils # Lymphocytes # (Manual) Eosinophils # (Manual) PT INR D-Dimer POC ABG pH POC ABG pCO2 POC ABG pO2 ABG pO2 ABG HCO3 ABG Base Excess ABG Hemoglobin Oxyhemoglobin Sodium Potassium Chloride Carbon Dioxide BUN 41 H Creatinine 2.9 H Glucose 122 H POC Glucose 125 H 131 H Calcium Phosphorus Magnesium ALT Alkaline Phosphatase Total Creatine Kinase CK-MB (CK-2) Rel Index Troponin T Albumin LDL Cholesterol Direct PTH Intact Salicylates Acetaminophen Crossmatch 04/18/19 04/19/19 04/19/19 23:57 05:55 11:35 WBC RBC Hgb Hct MCH MCHC RDW Lymph % (Auto) Park % (Auto) Eos % (Auto) Lymph # Park # Eos # Seg Neutrophils % Seg Neuts % (Manual) Lymphocytes % (Manual) Eosinophils % (Manual) Seg Neutrophils # Lymphocytes # (Manual) Eosinophils # (Manual) PT INR D-Dimer POC ABG pH POC ABG pCO2 POC ABG pO2 ABG pO2 ABG HCO3 ABG Base Excess ABG Hemoglobin Oxyhemoglobin Sodium Potassium Chloride Carbon Dioxide BUN Creatinine Glucose POC Glucose 159 H 144 H 177 H Calcium Phosphorus Magnesium ALT Alkaline Phosphatase Total Creatine Kinase CK-MB (CK-2) Rel Index Troponin T Albumin LDL Cholesterol Direct PTH Intact Salicylates Acetaminophen Crossmatch 04/19/19 04/20/19 04/20/19 16:36 02:05 06:28 WBC RBC Hgb Hct MCH MCHC RDW Lymph % (Auto) Park % (Auto) Eos % (Auto) Lymph # Park # Eos # Seg Neutrophils % Seg Neuts % (Manual) Lymphocytes % (Manual) Eosinophils % (Manual) Seg Neutrophils # Lymphocytes # (Manual) Eosinophils # (Manual) PT INR D-Dimer POC ABG pH POC ABG pCO2 POC ABG pO2 ABG pO2 ABG HCO3 ABG Base Excess ABG Hemoglobin Oxyhemoglobin Sodium Potassium Chloride Carbon Dioxide BUN Creatinine Glucose POC Glucose 134 H 142 H 132 H Calcium Phosphorus Magnesium ALT Alkaline Phosphatase Total Creatine Kinase CK-MB (CK-2) Rel Index Troponin T Albumin LDL Cholesterol Direct PTH Intact Salicylates Acetaminophen Crossmatch 04/20/19 04/20/19 04/21/19 12:37 23:34 05:59 WBC RBC Hgb Hct MCH MCHC RDW Lymph % (Auto) Park % (Auto) Eos % (Auto) Lymph # Park # Eos # Seg Neutrophils % Seg Neuts % (Manual) Lymphocytes % (Manual) Eosinophils % (Manual) Seg Neutrophils # Lymphocytes # (Manual) Eosinophils # (Manual) PT INR D-Dimer POC ABG pH POC ABG pCO2 POC ABG pO2 ABG pO2 ABG HCO3 ABG Base Excess ABG Hemoglobin Oxyhemoglobin Sodium Potassium Chloride Carbon Dioxide BUN Creatinine Glucose POC Glucose 163 H 166 H 140 H Calcium Phosphorus Magnesium ALT Alkaline Phosphatase Total Creatine Kinase CK-MB (CK-2) Rel Index Troponin T Albumin LDL Cholesterol Direct PTH Intact Salicylates Acetaminophen Crossmatch 04/21/19 04/21/19 04/21/19 12:07 17:22 23:43 WBC RBC Hgb Hct MCH MCHC RDW Lymph % (Auto) Park % (Auto) Eos % (Auto) Lymph # Park # Eos # Seg Neutrophils % Seg Neuts % (Manual) Lymphocytes % (Manual) Eosinophils % (Manual) Seg Neutrophils # Lymphocytes # (Manual) Eosinophils # (Manual) PT INR D-Dimer POC ABG pH POC ABG pCO2 POC ABG pO2 ABG pO2 ABG HCO3 ABG Base Excess ABG Hemoglobin Oxyhemoglobin Sodium Potassium Chloride Carbon Dioxide BUN Creatinine Glucose POC Glucose 135 H 141 H 138 H Calcium Phosphorus Magnesium ALT Alkaline Phosphatase Total Creatine Kinase CK-MB (CK-2) Rel Index Troponin T Albumin LDL Cholesterol Direct PTH Intact Salicylates Acetaminophen Crossmatch 04/22/19 04/22/19 04/22/19 05:12 18:24 23:49 WBC RBC Hgb Hct MCH MCHC RDW Lymph % (Auto) Park % (Auto) Eos % (Auto) Lymph # Park # Eos # Seg Neutrophils % Seg Neuts % (Manual) Lymphocytes % (Manual) Eosinophils % (Manual) Seg Neutrophils # Lymphocytes # (Manual) Eosinophils # (Manual) PT INR D-Dimer POC ABG pH POC ABG pCO2 POC ABG pO2 ABG pO2 ABG HCO3 ABG Base Excess ABG Hemoglobin Oxyhemoglobin Sodium Potassium Chloride Carbon Dioxide BUN Creatinine Glucose POC Glucose 141 H 137 H 142 H Calcium Phosphorus Magnesium ALT Alkaline Phosphatase Total Creatine Kinase CK-MB (CK-2) Rel Index Troponin T Albumin LDL Cholesterol Direct PTH Intact Salicylates Acetaminophen Crossmatch 04/23/19 04/23/19 04/23/19 05:53 08:13 11:58 WBC RBC Hgb Hct MCH MCHC RDW Lymph % (Auto) Park % (Auto) Eos % (Auto) Lymph # Park # Eos # Seg Neutrophils % Seg Neuts % (Manual) Lymphocytes % (Manual) Eosinophils % (Manual) Seg Neutrophils # Lymphocytes # (Manual) Eosinophils # (Manual) PT INR D-Dimer POC ABG pH POC ABG pCO2 POC ABG pO2 ABG pO2 ABG HCO3 ABG Base Excess ABG Hemoglobin Oxyhemoglobin Sodium Potassium Chloride Carbon Dioxide BUN Creatinine Glucose POC Glucose 132 H 154 H 165 H Calcium Phosphorus Magnesium ALT Alkaline Phosphatase Total Creatine Kinase CK-MB (CK-2) Rel Index Troponin T Albumin LDL Cholesterol Direct PTH Intact Salicylates Acetaminophen Crossmatch 04/23/19 04/24/19 04/24/19 16:28 00:28 07:00 WBC RBC Hgb Hct MCH MCHC RDW Lymph % (Auto) Park % (Auto) Eos % (Auto) Lymph # Park # Eos # Seg Neutrophils % Seg Neuts % (Manual) Lymphocytes % (Manual) Eosinophils % (Manual) Seg Neutrophils # Lymphocytes # (Manual) Eosinophils # (Manual) PT INR D-Dimer POC ABG pH POC ABG pCO2 POC ABG pO2 ABG pO2 ABG HCO3 ABG Base Excess ABG Hemoglobin Oxyhemoglobin Sodium Potassium Chloride Carbon Dioxide BUN Creatinine Glucose POC Glucose 136 H 140 H 141 H Calcium Phosphorus Magnesium ALT Alkaline Phosphatase Total Creatine Kinase CK-MB (CK-2) Rel Index Troponin T Albumin LDL Cholesterol Direct PTH Intact Salicylates Acetaminophen Crossmatch 04/24/19 04/24/19 04/25/19 12:38 18:57 00:38 WBC RBC Hgb Hct MCH MCHC RDW Lymph % (Auto) Park % (Auto) Eos % (Auto) Lymph # Park # Eos # Seg Neutrophils % Seg Neuts % (Manual) Lymphocytes % (Manual) Eosinophils % (Manual) Seg Neutrophils # Lymphocytes # (Manual) Eosinophils # (Manual) PT INR D-Dimer POC ABG pH POC ABG pCO2 POC ABG pO2 ABG pO2 ABG HCO3 ABG Base Excess ABG Hemoglobin Oxyhemoglobin Sodium Potassium Chloride Carbon Dioxide BUN Creatinine Glucose POC Glucose 152 H 166 H 128 H Calcium Phosphorus Magnesium ALT Alkaline Phosphatase Total Creatine Kinase CK-MB (CK-2) Rel Index Troponin T Albumin LDL Cholesterol Direct PTH Intact Salicylates Acetaminophen Crossmatch 04/25/19 05:44 WBC RBC Hgb Hct MCH MCHC RDW Lymph % (Auto) Park % (Auto) Eos % (Auto) Lymph # Park # Eos # Seg Neutrophils % Seg Neuts % (Manual) Lymphocytes % (Manual) Eosinophils % (Manual) Seg Neutrophils # Lymphocytes # (Manual) Eosinophils # (Manual) PT INR D-Dimer POC ABG pH POC ABG pCO2 POC ABG pO2 ABG pO2 ABG HCO3 ABG Base Excess ABG Hemoglobin Oxyhemoglobin Sodium Potassium Chloride Carbon Dioxide BUN Creatinine Glucose POC Glucose 153 H Calcium Phosphorus Magnesium ALT Alkaline Phosphatase Total Creatine Kinase CK-MB (CK-2) Rel Index Troponin T Albumin LDL Cholesterol Direct PTH Intact Salicylates Acetaminophen Crossmatch
--- NOTE | 2019-04-25 16:34 | Progress Note ---
Assessment and Plan - Patient Problems (1) ESRD (end stage renal disease) on dialysis Current Visit: Yes Status: Chronic Plan to address problem: End stage renal disease : - access: Left arm AVG Continue hemodialysis Saturday (2) Diabetes mellitus, insulin dependent (IDDM), uncontrolled Current Visit: No Status: Acute Plan to address problem: DM type II uncontrolled Monitor Fingersticks (3) Anemia in chronic kidney disease, on chronic dialysis Current Visit: Yes Status: Acute Plan to address problem: Anemia of chronic kidney disease hemoglobin 9.0g/dl We'll give Epogen Monitor CBC (4) Hypertension Current Visit: Yes Status: Acute Qualifiers: Hypertension type: essential hypertension Qualified Code(s): I10 - Essential (primary) hypertension Plan to address problem: Hypertension controlled currently on Prn antihypertensives. Monitor blood pressure (5) Acute hypoxemic respiratory failure Current Visit: Yes Status: Acute Plan to address problem: Patient has tracheostomy with Tpiece in place. Chest x-ray reviewed with patchy opacities upper lung lynn Cultures obtained with Acinetobacter completed treatment with antibiotics. Ultrafiltration limited by hypotension repeat CXR with improvement in lung aeration. Subjective Principal diagnosis: Respiratory failure, acute on chronic systolic HF, ESRD Interval history: 63 year old Gentleman with medical history significant for ESRD on hemodialysis at [facility] on Saturday, Saturday and Saturday. via a left arm AVG admitted with acute respiratory failure; and hypotension prolonged hospital course received antibiotics for acinetobacter infection and s/p prolonged need for ventilation requiring Tracheostomy with T piece attached. Patient seen today remains on a T piece apparatus no lower extremity edema. Objective - Vital Signs Vital signs: Vital Signs - 12hr 04/25/19 04/25/19 04/25/19 08:04 09:04 10:00 Temperature 97.7 F Pulse Rate 105 H 105 H Pulse Rate [ 114 H Anterior Bilateral Throughout] Respiratory 18 Rate Respiratory 20 Rate [Anterior Bilateral Throughout] Blood Pressure 101/53 O2 Sat by Pulse 97 95 Oximetry O2 Sat by Pulse 97 Oximetry [ Assessment] 04/25/19 04/25/19 12:47 13:13 Temperature 99.6 F Pulse Rate 114 H Pulse Rate [ 114 H Anterior Bilateral Throughout] Respiratory 18 Rate Respiratory 20 Rate [Anterior Bilateral Throughout] Blood Pressure 110/52 O2 Sat by Pulse 93 Oximetry O2 Sat by Pulse Oximetry [ Assessment] - General Appearance General appearance: well-developed, well-nourished EENT: ATNC, PERRL Neck: no JVD Respiratory: Present: Clear to Ascultation Cardiology: regular, S1S2 Gastrointestinal: normal, normoactive bowel sounds Integumentary: no rash Neurologic: CN 3-12 intact Psychiatric: mood/affect appropriate - Lab 04/18/19 07:19 04/18/19 07:19 Most recent lab results ABG pH 7.424 pH Units (7.350-7.450) 03/19/19 04:23 ABG pCO2 48.0 mm Hg 03/19/19 04:23 ABG pO2 78.3 mm Hg (80.0-90.0) L 03/19/19 04:23 ABG HCO3 30.7 mmol/L (20.0-26.0) H 03/19/19 04:23 ABG O2 Saturation 97.0 % (95.0-99.0) 03/19/19 04:23 Calcium 10.1 mg/dL (8.4-10.2) 04/18/19 07:19 Phosphorus 4.30 mg/dL (2.5-4.5) D 03/31/19 10:26 Magnesium 2.70 mg/dL (1.7-2.3) H 03/30/19 10:13 - Imaging Chest x-ray: image reviewed (I reviewed CXR with improvement in edema. ) Medications & Allergies - Medications Allergies/Adverse Reactions: Allergies haloperidol [From Haldol] Adverse Reaction (Verified 03/13/18 12:10) Unknown haloperidol lactate [From Haldol] Adverse Reaction (Verified 03/13/18 12:10) Unknown Home Medications: Home Medications Medication Instructions Recorded Confirmed Last Taken Type risperiDONE [RisperDAL] 1 mg PO QAM 03/13/18 02/21/19 Unknown History Sertraline [Zoloft] 100 mg PO QDAY 08/26/18 02/21/19 Unknown History Polyethylene Glycol 3350 [Miralax 17 gm PO QDAY #30 packet 11/05/18 02/21/19 Unknown Rx 3350] Aspirin EC [Halfprin EC] 81 mg PO DAILY #30 11/19/18 02/21/19 Unknown Rx Docusate Sodium [Colace CAP] 100 mg PO BID #60 11/19/18 02/21/19 Unknown Rx Folic Acid [Folvite] 1 mg PO DAILY #30 tab 11/19/18 02/21/19 Unknown Rx Famotidine [Pepcid] 20 mg PO DAILY tablet 12/08/18 02/21/19 Unknown Rx Gabapentin [Neurontin] 100 mg PO QHS capsule 12/08/18 02/21/19 Unknown Rx Metoprolol [Lopressor TAB] 50 mg PO BID 30 Days tablet 12/08/18 02/21/19 Unknown Rx Sevelamer Carbonate [Renvela] 800 mg PO TIDWM tablet 12/08/18 02/21/19 Unknown Rx hydrALAZINE [Apresoline TAB] 100 mg PO Q8HR #120 tablet 12/08/18 02/21/19 Unknown Rx Acetaminophen [Acetaminophen TAB] 650 mg PO Q12H PRN 12/15/18 02/21/19 Unknown History Glucagon,Human Recombinant 1 mg IJ Q15MIN PRN 12/15/18 02/21/19 Unknown History [Glucagon Emergency Kit] Insulin Aspart [NovoLOG 100 See Protocol SQ QWEEK 12/15/18 02/21/19 Unknown History UNITS/ML VIAL] Active Medications: Generic Name Dose Route Start Last Admin Trade Name Freq PRN Reason Stop Dose Admin Albuterol/Ipratropium 1 ampul 02/24/19 20:00 04/25/19 13:13 Duoneb *Not For Prn Use* IH 1 ampul TIDRT SANCHEZ Administration Lipase/Protease/Amylase 1 each 04/10/19 15:16 Pancreaze 10,500 Unit FEEDTUBE PRN PRN For Clogged Feeding Tube Epoetin Solitario 20,000 unit 03/24/19 11:17 04/24/19 15:34 Procrit IV 20,000 unit UMA PRN Administration hemodialysis Famotidine 20 mg 02/23/19 10:00 04/25/19 09:23 Pepcid PO 20 mg DAILY SANCHEZ Administration Sodium Chloride 100 mls @ 999 mls/hr 02/26/19 09:00 Nacl 0.9% IV UMA PRN Hypotension Insulin Human Regular 0 units 02/26/19 12:00 04/25/19 13:49 Humulin R SUB-Q 1 units Q6HR SANCHEZ Administration Protocol Metoprolol Tartrate 2.5 mg 02/28/19 12:06 03/15/19 05:15 Lopressor IV 2.5 mg Q4HR PRN Administration Tachycardia Risperidone 1 mg 02/25/19 13:00 04/25/19 09:23 Risperdal PO 1 mg DAILY SANCHEZ Administration Sertraline HCl 100 mg 02/25/19 13:00 04/25/19 09:23 Zoloft PO 100 mg DAILY SANCHEZ Administration Simple Syrup 15 ml 04/10/19 15:16 Simple Syrup FEEDTUBE PRN PRN Hypoglycemia Simple Syrup 30 ml 04/10/19 15:16 Simple Syrup FEEDTUBE PRN PRN Hypoglycemia Sodium Bicarbonate 325 mg 04/10/19 15:16 Sodium Bicarbonate FEEDTUBE PRN PRN For Clogged Feeding Tube Sodium Hypochlorite 1 applic 04/01/19 13:00 04/25/19 09:23 Dakin's Half Strength TP 1 applicatio BID SANCHEZ Administration
[2019-04-26] MEDS: INSULIN REGULAR, HUMAN 100 UNITS/1 ML SUB-Q SCH ×4 (01:18→18:54)
[2019-04-26] MEDS: IPRATROPIUM/ALBUTEROL SULFATE 3 ML AMPUL.NEB IH SCH ×3 (07:57→19:47)
--- NOTE | 2019-04-26 09:52 | Progress Note ---
Assessment and Plan Assessment and plan: Acute respiratory failure Trach placed on 03/03/19 Trach collar per pulmonary if tolerated. Also PMV attempted yesterday. Pulm following. Aspiration precautions Acute pulmonary edema, resolved Continue with Dialysis Necrotizing Unstagable sacral decubitus ulcer with osteomyelitis Wound care Dilated CMP Cardiomyiopathy EF 35-40% Continue hemodialysis PPM/ICD Acute encephalopathy, probably metabolic or toxic Continues on Mechanical ventilator. ESRD on hemodialysis nephrology following Vascular eval. 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 -Pt is s/p x1 DDVAP DVT prophylaxis Lovenox DNR poor prognosis Disposition: Awaiting on placement History Interval history: Patient is 63-year-old -Indian male patient from [facility] with multiple co-morbidities including blindness, CVA, CHF, PPM/ICD, loop recorder since 2012 that is MRI compatible, IDDM type 2, sepsis left foot ulcer, afib, ESRD with complications on HD TTS, hypertension, AOCD and GERD who presented to the ED with hypotensive after intubation in the emergency room. diagnosed with fluid overload, pleural effusion. Patient has had recurrent admission in the hospital for similar reason and was recently discharged from the hospital following treatment of Severe Sepsis due to Necrotizing Unstagable sacral decubitus ulcer with ostemomylitis, has received multiple courses of broad spectrum abx. Acute hypoxic respiratory failure, status post intubation and ventilatory villegas pport, now off vent, on T-piece Hospitalist Physical - Constitutional Vitals: Temp Pulse Resp BP Pulse Ox 98.3 F 98 H 18 131/57 98 04/26/19 07:58 04/26/19 08:21 04/26/19 07:58 04/26/19 07:58 04/26/19 07:58 General appearance: Present: no acute distress, well-nourished, other (T peace) - EENT Eyes: Present: PERRL, EOM intact ENT: hearing intact, clear oral mucosa, dentition normal - Neck Neck: Present: supple, normal ROM - Respiratory Respiratory effort: normal Respiratory: bilateral: CTA - Cardiovascular Rhythm: regular Heart Sounds: Present: S1 & S2. Absent: gallop, rub - Extremities Extremities: no ischemia, No edema, Full ROM - Abdominal General gastrointestinal: soft, non-tender, non-distended, normal bowel sounds - Integumentary Integumentary: Present: clear, warm, dry - Neurologic Neurologic: CNII-XII intact, moves all extremities Results - Labs CBC & Chem 7: 04/18/19 07:19 04/18/19 07:19 Labs: Laboratory Last Values WBC 9.6 K/mm3 (4.5-11.0) 04/18/19 07:19 RBC 3.49 M/mm3 (3.65-5.03) L 04/18/19 07:19 Hgb 9.0 gm/dl (11.8-15.2) L 04/18/19 07:19 Hct 29.9 % (35.5-45.6) L 04/18/19 07:19 MCV 86 fl (84-94) 04/18/19 07:19 MCH 26 pg (28-32) L 04/18/19 07:19 MCHC 30 % (32-34) L 04/18/19 07:19 RDW 20.0 % (13.2-15.2) H 04/18/19 07:19 Plt Count 286 K/mm3 (140-440) 04/18/19 07:19 Lymph % (Auto) 13.3 % (13.4-35.0) L 03/31/19 10:26 Kendall % (Auto) 6.5 % (0.0-7.3) 03/31/19 10:26 Eos % (Auto) 7.2 % (0.0-4.3) H 03/31/19 10:26 Baso % (Auto) 0.9 % (0.0-1.8) 03/31/19 10:26 Lymph # 1.1 K/mm3 (1.2-5.4) L 03/31/19 10:26 Kendall # 0.5 K/mm3 (0.0-0.8) 03/31/19 10:26 Eos # 0.6 K/mm3 (0.0-0.4) H 03/31/19 10:26 Baso # 0.1 K/mm3 (0.0-0.1) 03/31/19 10:26 Add Manual Diff Complete 03/21/19 06:30 Total Counted 100 03/21/19 06:30 Seg Neutrophils % 72.1 % (40.0-70.0) H 03/31/19 10:26 Seg Neuts % (Manual) 81.0 % (40.0-70.0) H 03/21/19 06:30 Band Neutrophils % 0 % 03/21/19 06:30 Lymphocytes % (Manual) 8.0 % (13.4-35.0) L 03/21/19 06:30 Reactive Lymphs % (Man) 0 % 03/21/19 06:30 Monocytes % (Manual) 1.0 % (0.0-7.3) 03/21/19 06:30 Eosinophils % (Manual) 8.0 % (0.0-4.3) H 03/21/19 06:30 Basophils % (Manual) 1.0 % (0.0-1.8) 03/21/19 06:30 Metamyelocytes % 1.0 % 03/21/19 06:30 Myelocytes % 0 % 03/21/19 06:30 Promyelocytes % 0 % 03/21/19 06:30 Blast Cells % 0 % 03/21/19 06:30 Nucleated RBC % Not Reportable 03/21/19 06:30 Seg Neutrophils # 6.0 K/mm3 (1.8-7.7) 03/31/19 10:26 Seg Neutrophils # Man 6.7 K/mm3 (1.8-7.7) 03/21/19 06:30 Band Neutrophils # 0.0 K/mm3 03/21/19 06:30 Lymphocytes # (Manual) 0.7 K/mm3 (1.2-5.4) L 03/21/19 06:30 Abs React Lymphs (Man) 0.0 K/mm3 03/21/19 06:30 Monocytes # (Manual) 0.1 K/mm3 (0.0-0.8) 03/21/19 06:30 Eosinophils # (Manual) 0.7 K/mm3 (0.0-0.4) H 03/21/19 06:30 Basophils # (Manual) 0.1 K/mm3 (0.0-0.1) 03/21/19 06:30 Metamyelocytes # 0.1 K/mm3 03/21/19 06:30 Myelocytes # 0.0 K/mm3 03/21/19 06:30 Promyelocytes # 0.0 K/mm3 03/21/19 06:30 Blast Cells # 0.0 K/mm3 03/21/19 06:30 WBC Morphology Not Reportable 03/21/19 06:30 Hypersegmented Neuts Not Reportable 03/21/19 06:30 Hyposegmented Neuts Not Reportable 03/21/19 06:30 Hypogranular Neuts Not Reportable 03/21/19 06:30 Smudge Cells Not Reportable 03/21/19 06:30 Toxic Granulation Not Reportable 03/21/19 06:30 Toxic Vacuolation Not Reportable 03/21/19 06:30 Dohle Bodies Not Reportable 03/21/19 06:30 Pelger-Huet Anomaly Not Reportable 03/21/19 06:30 Tramaine Rods Not Reportable 03/21/19 06:30 Platelet Estimate Consistent w auto 03/21/19 06:30 Clumped Platelets Not Reportable 03/21/19 06:30 Plt Clumps, EDTA Not Reportable 03/21/19 06:30 Large Platelets Not Reportable 03/21/19 06:30 Giant Platelets Not Reportable 03/21/19 06:30 Platelet Satelliting Not Reportable 03/21/19 06:30 Plt Morphology Comment Not Reportable 03/21/19 06:30 RBC Morphology Not Reportable 03/21/19 06:30 Dimorphic RBCs Not Reportable 03/21/19 06:30 Polychromasia Not Reportable 03/21/19 06:30 Hypochromasia Few 03/21/19 06:30 Poikilocytosis Few 03/21/19 06:30 Anisocytosis Few 03/21/19 06:30 Microcytosis Not Reportable 03/21/19 06:30 Macrocytosis Not Reportable 03/21/19 06:30 Spherocytes Not Reportable 03/21/19 06:30 Pappenheimer Bodies Not Reportable 03/21/19 06:30 Sickle Cells Not Reportable 03/21/19 06:30 Target Cells 1+ 03/21/19 06:30 Tear Drop Cells Not Reportable 03/21/19 06:30 Ovalocytes Few 03/21/19 06:30 Helmet Cells Not Reportable 03/21/19 06:30 [place] Bodies Not Reportable 03/21/19 06:30 [place] Rings Not Reportable 03/21/19 06:30 Hebert Cells Not Reportable 03/21/19 06:30 Bite Cells Not Reportable 03/21/19 06:30 Crenated Cell Not Reportable 03/21/19 06:30 Elliptocytes Not Reportable 03/21/19 06:30 Acanthocytes (Spur) Not Reportable 03/21/19 06:30 Rouleaux Not Reportable 03/21/19 06:30 Hemoglobin C Crystals Not Reportable 03/21/19 06:30 Schistocytes Not Reportable 03/21/19 06:30 Malaria parasites Not Reportable 03/21/19 06:30 Jose Juan Bodies Not Reportable 03/21/19 06:30 Hem Pathologist Commnt No 03/21/19 06:30 PT 16.3 Sec. (12.2-14.9) H 03/01/19 09:39 INR 1.35 (0.87-1.13) H 03/01/19 09:39 APTT 33.7 Sec. (24.2-36.6) 02/21/19 18:30 D-Dimer 2987.82 ng/mlDDU (0-234) H 02/22/19 05:54 POC ABG pH 7.510 (7.35-7.45) H 03/18/19 06:38 ABG pH 7.424 pH Units (7.350-7.450) 03/19/19 04:23 POC ABG pCO2 38.9 (35-45) 03/18/19 06:38 ABG pCO2 48.0 mm Hg 03/19/19 04:23 POC ABG pO2 164 (80-105) H 03/18/19 06:38 ABG pO2 78.3 mm Hg (80.0-90.0) L 03/19/19 04:23 POC ABG HCO3 31.0 (22-26 mml/L) 03/18/19 06:38 ABG HCO3 30.7 mmol/L (20.0-26.0) H 03/19/19 04:23 POC ABG Total CO2 32 (23-27mmol/L) 03/18/19 06:38 POC ABG O2 Sat 100 03/18/19 06:38 ABG O2 Saturation 97.0 % (95.0-99.0) 03/19/19 04:23 ABG O2 Content 7.9 (0.0-44) 03/19/19 04:23 POC ABG Base Excess 8 ((-2) - (+3)mmol/L) 03/18/19 06:38 ABG Base Excess 5.8 mmol/L (-2.0-3.0) H 03/19/19 04:23 ABG Hemoglobin 5.8 gm/dl (14.0-18.0) L 03/19/19 04:23 ABG Carboxyhemoglobin 2.0 % (0.0-5.0) 03/19/19 04:23 ABG Methemoglobin 0.4 % (0.0-1.5) 03/19/19 04:23 Oxyhemoglobin 94.6 % (95.0-99.0) L 03/19/19 04:23 FiO2 35 % 03/19/19 04:23 Sodium 145 mmol/L (137-145) 04/18/19 07:19 Potassium 3.6 mmol/L (3.6-5.0) 04/18/19 07:19 Chloride 99.1 mmol/L (98-107) 04/18/19 07:19 Carbon Dioxide 30 mmol/L (22-30) 04/18/19 07:19 Anion Gap 20 mmol/L 04/18/19 07:19 BUN 41 mg/dL (9-20) H 04/18/19 07:19 Creatinine 2.9 mg/dL (0.8-1.5) H 04/18/19 07:19 Estimated GFR 27 ml/min 04/18/19 07:19 BUN/Creatinine Ratio 14 % 04/18/19 07:19 Glucose 122 mg/dL (75-100) H 04/18/19 07:19 POC Glucose 146 (70-105) H 04/26/19 05:52 Lactic Acid 1.00 mmol/L (0.7-2.0) 02/21/19 20:58 Calcium 10.1 mg/dL (8.4-10.2) 04/18/19 07:19 Phosphorus 4.30 mg/dL (2.5-4.5) D 03/31/19 10:26 Magnesium 2.70 mg/dL (1.7-2.3) H 03/30/19 10:13 Total Bilirubin 0.20 mg/dL (0.1-1.2) 03/30/19 10:13 AST 16 units/L (5-40) 03/30/19 10:13 ALT 11 units/L (7-56) 03/30/19 10:13 Alkaline Phosphatase 185 units/L (35-129) H 03/30/19 10:13 Ammonia 28.0 umol/L (25-60) 02/21/19 20:04 Total Creatine Kinase 64 units/L (55-170) 02/22/19 03:42 CK-MB (CK-2) 3.7 ng/mL (0.0-4.0) 02/22/19 03:42 CK-MB (CK-2) Rel Index 5.7 (0-4) H 02/22/19 03:42 Troponin T 0.193 ng/mL (0.00-0.029) H* 02/22/19 03:42 Total Protein 6.9 g/dL (6.3-8.2) 03/30/19 10:13 Albumin 2.6 g/dL (3.9-5) L 03/30/19 10:13 Albumin/Globulin Ratio 0.6 % 03/30/19 10:13 Triglycerides 51 mg/dL (2-149) 02/21/19 18:30 Cholesterol 82 mg/dL (50-199) 02/21/19 18:30 LDL Cholesterol Direct 36 mg/dL (50-130) L 02/21/19 18:30 HDL Cholesterol 40 mg/dL (40-59) 02/21/19 18:30 Cholesterol/HDL Ratio 2.05 % 02/21/19 18:30 TSH 2.760 mlU/mL (0.270-4.200) 02/21/19 20:04 PTH Intact 267.6 pg/mL (15-65) H 03/02/19 05:15 Salicylates < 0.3 mg/dL (2.8-20.0) L 02/21/19 20:04 Acetaminophen < 5.0 ug/mL (10.0-30.0) L 02/21/19 20:04 Hepatitis A IgM Ab Non-reactive (NonReactive) 03/31/19 22:56 Hep Bs Antigen Non-reactive (Negative) 03/31/19 22:56 Hep B Core IgM Ab Non-reactive (NonReactive) 03/31/19 22:56 Hepatitis C Antibody Non-reactive (NonReactive) 03/31/19 22:56 Blood Type O POSITIVE 03/22/19 08:48 Antibody Screen Negative 03/22/19 08:48 Crossmatch See Detail 03/22/19 08:48 Active Medications - Current Medications Current Medications: Generic Name Dose Route Start Last Admin Trade Name Freq PRN Reason Stop Dose Admin Albuterol/Ipratropium 1 ampul 02/24/19 20:00 04/26/19 07:57 Duoneb *Not For Prn Use* IH 1 ampul TIDRT SANCHEZ Administration Lipase/Protease/Amylase 1 each 04/10/19 15:16 Pancreaze 10,500 Unit FEEDTUBE PRN PRN For Clogged Feeding Tube Epoetin Solitario 20,000 unit 03/24/19 11:17 04/24/19 15:34 Procrit IV 20,000 unit UMA PRN Administration hemodialysis Famotidine 20 mg 02/23/19 10:00 04/25/19 09:23 Pepcid PO 20 mg DAILY SANCHEZ Administration Sodium Chloride 100 mls @ 999 mls/hr 02/26/19 09:00 Nacl 0.9% IV UMA PRN Hypotension Insulin Human Regular 0 units 02/26/19 12:00 04/26/19 06:00 Humulin R SUB-Q Not Given Q6HR COUNT INCLUDES THE [facility] Protocol Metoprolol Tartrate 2.5 mg 02/28/19 12:06 03/15/19 05:15 Lopressor IV 2.5 mg Q4HR PRN Administration Tachycardia Risperidone 1 mg 02/25/19 13:00 04/25/19 09:23 Risperdal PO 1 mg DAILY SANCHEZ Administration Sertraline HCl 100 mg 02/25/19 13:00 04/25/19 09:23 Zoloft PO 100 mg DAILY SANCHEZ Administration Simple Syrup 15 ml 04/10/19 15:16 Simple Syrup FEEDTUBE PRN PRN Hypoglycemia Simple Syrup 30 ml 04/10/19 15:16 Simple Syrup FEEDTUBE PRN PRN Hypoglycemia Sodium Bicarbonate 325 mg 04/10/19 15:16 Sodium Bicarbonate FEEDTUBE PRN PRN For Clogged Feeding Tube Sodium Hypochlorite 1 applic 04/01/19 13:00 04/25/19 22:11 Dakin's Half Strength TP 1 applicatio BID SANCHEZ Administration Nutrition/Malnutrition Assess - Dietary Evaluation Nutrition/Malnutrition Findings: Nutrition Notes Start: 02/22/19 12:51 Freq: Status: Active Protocol: Document 04/24/19 11:11 PS (Rec: 04/24/19 12:23 PS [id number]) Co-Sign 04/24/19 11:11 LP Nutrition Notes Initial or Follow up Reassessment Current Diagnosis Diabetes,Hypertension Other Pertinent Diagnosis Sacral PU, ESRD on HD (T/Thurs /Sat), Schizophrenia,Blind in L eye,S/P trach Current Diet Nepro at 50 ml/hr w/Abhilash BID Labs/Tests POC Glu 141 Pertinent Medications Reviewed Height 5 ft 10 in Weight 65.7 kg [place] Body Weight (kg) 75.45 BMI 20.7 Weight change and time frame wt. change noted. Subjective/Other Information Observed Nepro infusing at 50 ml/hr. RN had Abhilash and was going to give it to him BID. Percent of energy/protein needs met: 100%/100% Burn Absent Trauma Absent Minimum of two criteria No #2 Nutrition Diagnosis Increased nutrient needs ( specify in comment below) Diagnosis Progress(for reassessment Continues documentation) #1 Nutrition Diagnosis Inadequate oral intake Diagnosis Progress(for reassessment Continues documentation) Is patient on ventilator? No Is Patient Ambulatory and/or Out of Bed No REE-([facility]-confined to bed) 1749.252 Kcal/Kg value to use for calculation 35 Approximate Energy Requirements Using 2300 kcal/Kg Calculation Used for Recommendations Kcal/kg Additional Notes Protein Needs: 79 - 98 g (1.2- 1.5 g/kg) Fluid Needs: 1-1.5 L/day Nutrition Intervention Change Diet Order: Continue TF Nutrition Support: Nepro with Carbsteady 1.8 at 50 ml/hr Flush 200 ml q4hr Kcal 2,160 Protein (gm) 97 Fluid (mL) 872 Add Supplement/Snack (indicate name/kcal Abhilash BID /protein ) Provides kCal: 190 Provides Protein (gm) 5 Goal #1 TF tolerance Goal #2 Continue to meet at least 75% of calorie and protein needs via TF Anticipated Discharge Needs: TF Follow-Up By: 05/01/19 Additional Comments Follow for TF/ONS tolerance
[2019-04-26] MEDS: risperiDONE 1 MG TAB PO SCH (10:08)
[2019-04-26] MEDS: SERTRALINE 100 MG TAB PO SCH (10:08)
[2019-04-26] MEDS: FAMOTIDINE 20 MG TAB PO SCH (10:08)
[2019-04-26] MEDS: SODIUM HYPOCHLORITE, DAKIN'S 1/2 STRENGTH (0.25%) 473 ML TOPICAL SOLN TP SCH ×2 (10:09→21:24)
[2019-04-26 10:29] LABS: Basophils # (Auto) 0.1 K/mm3 (0.0-0.1); Basophils % (Auto) 0.5 % (0.0-1.8); Eosinophils # (Auto) 0.6 K/mm3 (0.0-0.4); Eosinophils % (Auto) 5.3 % (0.0-4.3); Hematocrit 23.3 % (35.5-45.6); Hemoglobin 7.4 gm/dl (11.8-15.2); Lymphocytes # (Auto) 0.9 K/mm3 (1.2-5.4); Lymphocytes % (Auto) 7.5 % (13.4-35.0); Mean Corpuscular HGB Conc 32 % (32-34); Mean Corpuscular Volume 82 fl (84-94); Monocytes # (Auto) 0.9 K/mm3 (0.0-0.8); Monocytes % (Auto) 7.5 % (0.0-7.3); Platelet Count 350 K/mm3 (140-440); Red Blood Count 2.84 M/mm3 (3.65-5.03)
[2019-04-26 10:33] LABS: Red Cell Distribution Width 20.3 % (13.2-15.2)
--- NOTE | 2019-04-26 11:24 | Progress Note ---
Assessment and Plan 63 y/o male with multiple medical issues admitted with altered mental status, acute respiratory failure requiring mechanical ventilation 1. Daily PMV trials. Hopefully will lead to capping and nasal cannula at some point. then could consider decannulation. 2. HD per renal 3. PT/OT if possible 4. CM working on placement Subjective Date of service: 04/26/19 Principal diagnosis: Respiratory failure, acute on chronic systolic HF, ESRD Interval history: No acute events. Clinical status is the same. Objective Vital Signs - 12hr 04/25/19 04/26/19 04/26/19 23:43 03:49 03:53 Temperature 98.5 F 98.6 F Pulse Rate 109 H 106 H Pulse Rate [ Anterior Bilateral Throughout] Respiratory 20 19 Rate Respiratory Rate [Anterior Bilateral Throughout] Blood Pressure 127/67 115/59 O2 Sat by Pulse 91 Oximetry O2 Sat by Pulse Oximetry [ Assessment] 04/26/19 04/26/19 04/26/19 04:36 07:57 07:58 Temperature 98.3 F Pulse Rate 110 H 97 H Pulse Rate [ 102 H Anterior Bilateral Throughout] Respiratory 18 Rate Respiratory 20 Rate [Anterior Bilateral Throughout] Blood Pressure 131/57 O2 Sat by Pulse 94 98 Oximetry O2 Sat by Pulse 98 Oximetry [ Assessment] 04/26/19 08:21 Temperature Pulse Rate 98 H Pulse Rate [ Anterior Bilateral Throughout] Respiratory Rate Respiratory Rate [Anterior Bilateral Throughout] Blood Pressure O2 Sat by Pulse Oximetry O2 Sat by Pulse Oximetry [ Assessment] Constitutional: no acute distress, alert Eyes: non-icteric ENT: oropharynx moist Neck: supple Effort: normal Ascultation: Bilateral: diminished breath sounds, other (coarse BS bilaterally) Percussion: Bilateral: not dull Cardiovascular: regular rate and rhythm (no mrg) Gastrointestinal: normoactive bowel sounds, soft, non-tender, non-distended, other (ostomy in place, brown stool) Extremities: no cyanosis, no edema, pink and warm Neurologic: other (mild weakness LUE, o/w nonfocal) Psychiatric: other (unable to assess) CBC and BMP: 04/26/19 10:12 04/26/19 10:12 ABG, PT/INR, D-dimer: ABG POC ABG pH 7.510 (7.35-7.45) H 03/18/19 06:38 ABG pH 7.424 pH Units (7.350-7.450) 03/19/19 04:23 POC ABG pCO2 38.9 (35-45) 03/18/19 06:38 ABG pCO2 48.0 mm Hg 03/19/19 04:23 POC ABG pO2 164 (80-105) H 03/18/19 06:38 ABG pO2 78.3 mm Hg (80.0-90.0) L 03/19/19 04:23 POC ABG HCO3 31.0 (22-26 mml/L) 03/18/19 06:38 POC ABG Total CO2 32 (23-27mmol/L) 03/18/19 06:38 POC ABG O2 Sat 100 03/18/19 06:38 ABG O2 Saturation 97.0 % (95.0-99.0) 03/19/19 04:23 PT/INR, D-dimer PT 16.3 Sec. (12.2-14.9) H 03/01/19 09:39 INR 1.35 (0.87-1.13) H 03/01/19 09:39 D-Dimer 2987.82 ng/mlDDU (0-234) H 02/22/19 05:54 Abnormal lab findings: Abnormal Labs 02/21/19 02/21/19 02/21/19 18:30 18:30 18:30 WBC RBC 3.26 L Hgb 8.8 L Hct 29.0 L MCV MCH 27 L MCHC 30 L RDW 19.1 H Lymph % (Auto) 6.1 L [place] % (Auto) Eos % (Auto) Lymph # 0.4 L [place] # Eos # Seg Neutrophils % 86.2 H Seg Neuts % (Manual) Lymphocytes % (Manual) Eosinophils % (Manual) Seg Neutrophils # Lymphocytes # (Manual) Eosinophils # (Manual) PT INR D-Dimer POC ABG pH POC ABG pCO2 POC ABG pO2 ABG pO2 ABG HCO3 ABG Base Excess ABG Hemoglobin Oxyhemoglobin Sodium 133 L Potassium 3.3 L Chloride 93.1 L Carbon Dioxide 33 H BUN Creatinine Glucose 161 H POC Glucose Calcium Phosphorus Magnesium ALT Alkaline Phosphatase 136 H Total Creatine Kinase 37 L CK-MB (CK-2) Rel Index Troponin T 0.192 H* Albumin 2.4 L LDL Cholesterol Direct 36 L PTH Intact Salicylates Acetaminophen Crossmatch 02/21/19 02/21/19 02/21/19 18:42 20:04 20:04 WBC RBC Hgb Hct MCV MCH MCHC RDW Lymph % (Auto) [place] % (Auto) Eos % (Auto) Lymph # [place] # Eos # Seg Neutrophils % Seg Neuts % (Manual) Lymphocytes % (Manual) Eosinophils % (Manual) Seg Neutrophils # Lymphocytes # (Manual) Eosinophils # (Manual) PT INR D-Dimer POC ABG pH POC ABG pCO2 56.7 H POC ABG pO2 291 H ABG pO2 ABG HCO3 ABG Base Excess ABG Hemoglobin Oxyhemoglobin Sodium Potassium Chloride Carbon Dioxide BUN Creatinine Glucose POC Glucose Calcium Phosphorus Magnesium ALT Alkaline Phosphatase Total Creatine Kinase CK-MB (CK-2) Rel Index Troponin T Albumin LDL Cholesterol Direct PTH Intact Salicylates < 0.3 L Acetaminophen < 5.0 L Crossmatch 02/21/19 02/22/19 02/22/19 22:35 03:42 03:42 WBC RBC 3.20 L Hgb 8.8 L Hct 27.6 L MCV MCH MCHC RDW 18.9 H Lymph % (Auto) 7.4 L [place] % (Auto) Eos % (Auto) Lymph # 0.7 L [place] # Eos # Seg Neutrophils % 84.7 H Seg Neuts % (Manual) Lymphocytes % (Manual) Eosinophils % (Manual) Seg Neutrophils # Lymphocytes # (Manual) Eosinophils # (Manual) PT INR D-Dimer POC ABG pH POC ABG pCO2 POC ABG pO2 ABG pO2 ABG HCO3 ABG Base Excess ABG Hemoglobin Oxyhemoglobin Sodium 134 L Potassium 2.6 L* D Chloride Carbon Dioxide BUN Creatinine Glucose POC Glucose Calcium Phosphorus Magnesium ALT Alkaline Phosphatase Total Creatine Kinase CK-MB (CK-2) Rel Index 5.2 H Troponin T 0.202 H* Albumin LDL Cholesterol Direct PTH Intact Salicylates Acetaminophen Crossmatch 02/22/19 02/22/19 02/22/19 03:42 05:54 09:04 WBC RBC Hgb Hct MCV MCH MCHC RDW Lymph % (Auto) [place] % (Auto) Eos % (Auto) Lymph # [place] # Eos # Seg Neutrophils % Seg Neuts % (Manual) Lymphocytes % (Manual) Eosinophils % (Manual) Seg Neutrophils # Lymphocytes # (Manual) Eosinophils # (Manual) PT INR D-Dimer 2987.82 H POC ABG pH 7.451 H POC ABG pCO2 POC ABG pO2 ABG pO2 ABG HCO3 ABG Base Excess ABG Hemoglobin Oxyhemoglobin Sodium Potassium Chloride Carbon Dioxide BUN Creatinine Glucose POC Glucose Calcium Phosphorus Magnesium ALT Alkaline Phosphatase Total Creatine Kinase CK-MB (CK-2) Rel Index 5.7 H Troponin T 0.193 H* Albumin LDL Cholesterol Direct PTH Intact Salicylates Acetaminophen Crossmatch 02/22/19 02/22/19 02/23/19 10:36 23:56 00:52 WBC RBC Hgb Hct MCV MCH MCHC RDW Lymph % (Auto) [place] % (Auto) Eos % (Auto) Lymph # [place] # Eos # Seg Neutrophils % Seg Neuts % (Manual) Lymphocytes % (Manual) Eosinophils % (Manual) Seg Neutrophils # Lymphocytes # (Manual) Eosinophils # (Manual) PT INR D-Dimer POC ABG pH POC ABG pCO2 POC ABG pO2 ABG pO2 ABG HCO3 ABG Base Excess ABG Hemoglobin Oxyhemoglobin Sodium Potassium 3.1 L Chloride Carbon Dioxide BUN Creatinine Glucose POC Glucose 58 L 111 H Calcium Phosphorus Magnesium ALT Alkaline Phosphatase Total Creatine Kinase CK-MB (CK-2) Rel Index Troponin T Albumin LDL Cholesterol Direct PTH Intact Salicylates Acetaminophen Crossmatch 02/23/19 02/23/19 02/23/19 05:00 06:35 14:26 WBC RBC Hgb Hct MCV MCH MCHC RDW Lymph % (Auto) [place] % (Auto) Eos % (Auto) Lymph # [place] # Eos # Seg Neutrophils % Seg Neuts % (Manual) Lymphocytes % (Manual) Eosinophils % (Manual) Seg Neutrophils # Lymphocytes # (Manual) Eosinophils # (Manual) PT INR D-Dimer POC ABG pH POC ABG pCO2 POC ABG pO2 ABG pO2 ABG HCO3 ABG Base Excess ABG Hemoglobin Oxyhemoglobin Sodium 135 L Potassium 3.1 L Chloride Carbon Dioxide BUN 21 H Creatinine 2.0 H Glucose 57 L POC Glucose 64 L 62 L Calcium Phosphorus Magnesium ALT Alkaline Phosphatase Total Creatine Kinase CK-MB (CK-2) Rel Index Troponin T Albumin LDL Cholesterol Direct PTH Intact Salicylates Acetaminophen Crossmatch 02/24/19 02/24/19 02/24/19 02:11 04:12 04:55 WBC RBC 2.84 L Hgb 7.8 L Hct 24.5 L MCV MCH MCHC RDW 19.5 H Lymph % (Auto) [place] % (Auto) Eos % (Auto) Lymph # [place] # Eos # Seg Neutrophils % Seg Neuts % (Manual) Lymphocytes % (Manual) Eosinophils % (Manual) Seg Neutrophils # Lymphocytes # (Manual) Eosinophils # (Manual) PT INR D-Dimer POC ABG pH 7.511 H POC ABG pCO2 33.9 L POC ABG pO2 62 L ABG pO2 ABG HCO3 ABG Base Excess ABG Hemoglobin Oxyhemoglobin Sodium Potassium Chloride Carbon Dioxide BUN Creatinine Glucose POC Glucose 69 L Calcium Phosphorus Magnesium ALT Alkaline Phosphatase Total Creatine Kinase CK-MB (CK-2) Rel Index Troponin T Albumin LDL Cholesterol Direct PTH Intact Salicylates Acetaminophen Crossmatch 02/24/19 02/24/19 02/25/19 04:55 05:41 04:45 WBC RBC Hgb Hct MCV MCH MCHC RDW Lymph % (Auto) [place] % (Auto) Eos % (Auto) Lymph # [place] # Eos # Seg Neutrophils % Seg Neuts % (Manual) Lymphocytes % (Manual) Eosinophils % (Manual) Seg Neutrophils # Lymphocytes # (Manual) Eosinophils # (Manual) PT INR D-Dimer POC ABG pH 7.466 H POC ABG pCO2 POC ABG pO2 75 L ABG pO2 ABG HCO3 ABG Base Excess ABG Hemoglobin Oxyhemoglobin Sodium Potassium Chloride Carbon Dioxide BUN Creatinine 1.8 H Glucose 73 L POC Glucose 127 H Calcium Phosphorus Magnesium ALT Alkaline Phosphatase Total Creatine Kinase CK-MB (CK-2) Rel Index Troponin T Albumin LDL Cholesterol Direct PTH Intact Salicylates Acetaminophen Crossmatch 02/25/19 02/25/19 02/26/19 16:34 21:33 03:45 WBC RBC 2.96 L Hgb 8.0 L Hct 25.8 L MCV MCH 27 L MCHC 31 L RDW 20.0 H Lymph % (Auto) [place] % (Auto) Eos % (Auto) Lymph # [place] # Eos # Seg Neutrophils % Seg Neuts % (Manual) Lymphocytes % (Manual) Eosinophils % (Manual) Seg Neutrophils # Lymphocytes # (Manual) Eosinophils # (Manual) PT INR D-Dimer POC ABG pH POC ABG pCO2 POC ABG pO2 ABG pO2 ABG HCO3 ABG Base Excess ABG Hemoglobin Oxyhemoglobin Sodium Potassium Chloride Carbon Dioxide BUN Creatinine Glucose POC Glucose 141 H 106 H Calcium Phosphorus Magnesium ALT Alkaline Phosphatase Total Creatine Kinase CK-MB (CK-2) Rel Index Troponin T Albumin LDL Cholesterol Direct PTH Intact Salicylates Acetaminophen Crossmatch 02/26/19 02/26/19 02/26/19 03:45 04:13 07:53 WBC RBC Hgb Hct MCV MCH MCHC RDW Lymph % (Auto) [place] % (Auto) Eos % (Auto) Lymph # [place] # Eos # Seg Neutrophils % Seg Neuts % (Manual) Lymphocytes % (Manual) Eosinophils % (Manual) Seg Neutrophils # Lymphocytes # (Manual) Eosinophils # (Manual) PT INR D-Dimer POC ABG pH 7.470 H POC ABG pCO2 POC ABG pO2 ABG pO2 ABG HCO3 ABG Base Excess ABG Hemoglobin Oxyhemoglobin Sodium Potassium Chloride Carbon Dioxide BUN Creatinine 1.8 H Glucose POC Glucose 110 H Calcium Phosphorus Magnesium ALT Alkaline Phosphatase Total Creatine Kinase CK-MB (CK-2) Rel Index Troponin T Albumin LDL Cholesterol Direct PTH Intact Salicylates Acetaminophen Crossmatch 02/26/19 02/26/19 02/27/19 11:56 17:43 00:12 WBC RBC Hgb Hct MCV MCH MCHC RDW Lymph % (Auto) [place] % (Auto) Eos % (Auto) Lymph # [place] # Eos # Seg Neutrophils % Seg Neuts % (Manual) Lymphocytes % (Manual) Eosinophils % (Manual) Seg Neutrophils # Lymphocytes # (Manual) Eosinophils # (Manual) PT INR D-Dimer POC ABG pH POC ABG pCO2 POC ABG pO2 ABG pO2 ABG HCO3 ABG Base Excess ABG Hemoglobin Oxyhemoglobin Sodium Potassium Chloride Carbon Dioxide BUN Creatinine Glucose POC Glucose 112 H 127 H 127 H Calcium Phosphorus Magnesium ALT Alkaline Phosphatase Total Creatine Kinase CK-MB (CK-2) Rel Index Troponin T Albumin LDL Cholesterol Direct PTH Intact Salicylates Acetaminophen Crossmatch 02/27/19 02/27/19 02/27/19 04:35 13:15 18:02 WBC RBC Hgb Hct MCV MCH MCHC RDW Lymph % (Auto) [place] % (Auto) Eos % (Auto) Lymph # [place] # Eos # Seg Neutrophils % Seg Neuts % (Manual) Lymphocytes % (Manual) Eosinophils % (Manual) Seg Neutrophils # Lymphocytes # (Manual) Eosinophils # (Manual) PT INR D-Dimer POC ABG pH 7.483 H POC ABG pCO2 POC ABG pO2 61 L ABG pO2 ABG HCO3 ABG Base Excess ABG Hemoglobin Oxyhemoglobin Sodium Potassium Chloride Carbon Dioxide BUN Creatinine Glucose POC Glucose 143 H 106 H Calcium Phosphorus Magnesium ALT Alkaline Phosphatase Total Creatine Kinase CK-MB (CK-2) Rel Index Troponin T Albumin LDL Cholesterol Direct PTH Intact Salicylates Acetaminophen Crossmatch 02/28/19 02/28/19 02/28/19 05:50 11:59 17:52 WBC RBC Hgb Hct MCV MCH MCHC RDW Lymph % (Auto) [place] % (Auto) Eos % (Auto) Lymph # [place] # Eos # Seg Neutrophils % Seg Neuts % (Manual) Lymphocytes % (Manual) Eosinophils % (Manual) Seg Neutrophils # Lymphocytes # (Manual) Eosinophils # (Manual) PT INR D-Dimer POC ABG pH POC ABG pCO2 POC ABG pO2 ABG pO2 ABG HCO3 ABG Base Excess ABG Hemoglobin Oxyhemoglobin Sodium Potassium Chloride Carbon Dioxide BUN Creatinine Glucose POC Glucose 134 H 128 H 142 H Calcium Phosphorus Magnesium ALT Alkaline Phosphatase Total Creatine Kinase CK-MB (CK-2) Rel Index Troponin T Albumin LDL Cholesterol Direct PTH Intact Salicylates Acetaminophen Crossmatch 02/28/19 03/01/19 03/01/19 23:13 05:40 09:39 WBC RBC Hgb Hct MCV MCH MCHC RDW Lymph % (Auto) [place] % (Auto) Eos % (Auto) Lymph # [place] # Eos # Seg Neutrophils % Seg Neuts % (Manual) Lymphocytes % (Manual) Eosinophils % (Manual) Seg Neutrophils # Lymphocytes # (Manual) Eosinophils # (Manual) PT 16.3 H INR 1.35 H D-Dimer POC ABG pH POC ABG pCO2 POC ABG pO2 ABG pO2 ABG HCO3 ABG Base Excess ABG Hemoglobin Oxyhemoglobin Sodium Potassium Chloride Carbon Dioxide BUN Creatinine Glucose POC Glucose 112 H 111 H Calcium Phosphorus Magnesium ALT Alkaline Phosphatase Total Creatine Kinase CK-MB (CK-2) Rel Index Troponin T Albumin LDL Cholesterol Direct PTH Intact Salicylates Acetaminophen Crossmatch 03/01/19 03/01/19 03/01/19 11:56 13:54 17:59 WBC RBC Hgb Hct MCV MCH MCHC RDW Lymph % (Auto) [place] % (Auto) Eos % (Auto) Lymph # [place] # Eos # Seg Neutrophils % Seg Neuts % (Manual) Lymphocytes % (Manual) Eosinophils % (Manual) Seg Neutrophils # Lymphocytes # (Manual) Eosinophils # (Manual) PT INR D-Dimer POC ABG pH POC ABG pCO2 POC ABG pO2 ABG pO2 ABG HCO3 ABG Base Excess ABG Hemoglobin Oxyhemoglobin Sodium Potassium Chloride Carbon Dioxide BUN 33 H Creatinine 2.8 H D Glucose 176 H POC Glucose 199 H 147 H Calcium Phosphorus Magnesium ALT Alkaline Phosphatase Total Creatine Kinase CK-MB (CK-2) Rel Index Troponin T Albumin LDL Cholesterol Direct PTH Intact Salicylates Acetaminophen Crossmatch 03/02/19 03/02/19 03/02/19 05:15 05:15 05:15 WBC RBC 2.73 L Hgb 7.4 L Hct 23.0 L MCV MCH 27 L MCHC RDW 19.9 H Lymph % (Auto) [place] % (Auto) 7.9 H Eos % (Auto) 7.6 H Lymph # 1.0 L [place] # Eos # 0.5 H Seg Neutrophils % Seg Neuts % (Manual) Lymphocytes % (Manual) Eosinophils % (Manual) Seg Neutrophils # Lymphocytes # (Manual) Eosinophils # (Manual) PT INR D-Dimer POC ABG pH POC ABG pCO2 POC ABG pO2 ABG pO2 ABG HCO3 ABG Base Excess ABG Hemoglobin Oxyhemoglobin Sodium Potassium Chloride Carbon Dioxide BUN 43 H Creatinine 3.2 H Glucose POC Glucose Calcium Phosphorus 2.30 L Magnesium ALT Alkaline Phosphatase Total Creatine Kinase CK-MB (CK-2) Rel Index Troponin T Albumin LDL Cholesterol Direct PTH Intact 267.6 H Salicylates Acetaminophen Crossmatch 03/02/19 03/02/19 03/03/19 12:32 18:20 13:30 WBC RBC Hgb Hct MCV MCH MCHC RDW Lymph % (Auto) [place] % (Auto) Eos % (Auto) Lymph # [place] # Eos # Seg Neutrophils % Seg Neuts % (Manual) Lymphocytes % (Manual) Eosinophils % (Manual) Seg Neutrophils # Lymphocytes # (Manual) Eosinophils # (Manual) PT INR D-Dimer POC ABG pH POC ABG pCO2 POC ABG pO2 ABG pO2 ABG HCO3 ABG Base Excess ABG Hemoglobin Oxyhemoglobin Sodium Potassium Chloride 97.3 L Carbon Dioxide BUN 26 H Creatinine 2.2 H Glucose 73 L POC Glucose 111 H 156 H Calcium Phosphorus Magnesium ALT Alkaline Phosphatase Total Creatine Kinase CK-MB (CK-2) Rel Index Troponin T Albumin LDL Cholesterol Direct PTH Intact Salicylates Acetaminophen Crossmatch 03/04/19 03/04/19 03/04/19 00:02 05:37 05:40 WBC RBC 2.63 L Hgb 7.2 L Hct 22.2 L MCV MCH MCHC RDW 20.2 H Lymph % (Auto) 10.5 L [place] % (Auto) Eos % (Auto) 4.6 H Lymph # 0.7 L [place] # Eos # Seg Neutrophils % 76.9 H Seg Neuts % (Manual) Lymphocytes % (Manual) Eosinophils % (Manual) Seg Neutrophils # Lymphocytes # (Manual) Eosinophils # (Manual) PT INR D-Dimer POC ABG pH POC ABG pCO2 POC ABG pO2 ABG pO2 ABG HCO3 ABG Base Excess ABG Hemoglobin Oxyhemoglobin Sodium Potassium Chloride Carbon Dioxide BUN Creatinine Glucose POC Glucose 136 H 123 H Calcium Phosphorus Magnesium ALT Alkaline Phosphatase Total Creatine Kinase CK-MB (CK-2) Rel Index Troponin T Albumin LDL Cholesterol Direct PTH Intact Salicylates Acetaminophen Crossmatch 03/04/19 03/04/19 03/04/19 05:40 11:39 23:20 WBC RBC Hgb Hct MCV MCH MCHC RDW Lymph % (Auto) [place] % (Auto) Eos % (Auto) Lymph # [place] # Eos # Seg Neutrophils % Seg Neuts % (Manual) Lymphocytes % (Manual) Eosinophils % (Manual) Seg Neutrophils # Lymphocytes # (Manual) Eosinophils # (Manual) PT INR D-Dimer POC ABG pH POC ABG pCO2 POC ABG pO2 ABG pO2 ABG HCO3 ABG Base Excess ABG Hemoglobin Oxyhemoglobin Sodium Potassium Chloride Carbon Dioxide BUN 34 H Creatinine 2.7 H Glucose 114 H POC Glucose 175 H 151 H Calcium Phosphorus Magnesium ALT Alkaline Phosphatase Total Creatine Kinase CK-MB (CK-2) Rel Index Troponin T Albumin LDL Cholesterol Direct PTH Intact Salicylates Acetaminophen Crossmatch 03/05/19 03/05/19 03/05/19 05:37 12:08 17:11 WBC RBC Hgb Hct MCV MCH MCHC RDW Lymph % (Auto) [place] % (Auto) Eos % (Auto) Lymph # [place] # Eos # Seg Neutrophils % Seg Neuts % (Manual) Lymphocytes % (Manual) Eosinophils % (Manual) Seg Neutrophils # Lymphocytes # (Manual) Eosinophils # (Manual) PT INR D-Dimer POC ABG pH POC ABG pCO2 POC ABG pO2 ABG pO2 ABG HCO3 ABG Base Excess ABG Hemoglobin Oxyhemoglobin Sodium Potassium Chloride Carbon Dioxide BUN Creatinine Glucose POC Glucose 134 H 135 H 135 H Calcium Phosphorus Magnesium ALT Alkaline Phosphatase Total Creatine Kinase CK-MB (CK-2) Rel Index Troponin T Albumin LDL Cholesterol Direct PTH Intact Salicylates Acetaminophen Crossmatch 03/06/19 03/06/19 03/06/19 00:16 13:05 18:09 WBC RBC Hgb Hct MCV MCH MCHC RDW Lymph % (Auto) [place] % (Auto) Eos % (Auto) Lymph # [place] # Eos # Seg Neutrophils % Seg Neuts % (Manual) Lymphocytes % (Manual) Eosinophils % (Manual) Seg Neutrophils # Lymphocytes # (Manual) Eosinophils # (Manual) PT INR D-Dimer POC ABG pH POC ABG pCO2 POC ABG pO2 ABG pO2 ABG HCO3 ABG Base Excess ABG Hemoglobin Oxyhemoglobin Sodium Potassium Chloride Carbon Dioxide BUN Creatinine Glucose POC Glucose 117 H 113 H 131 H Calcium Phosphorus Magnesium ALT Alkaline Phosphatase Total Creatine Kinase CK-MB (CK-2) Rel Index Troponin T Albumin LDL Cholesterol Direct PTH Intact Salicylates Acetaminophen Crossmatch 03/07/19 03/08/19 03/08/19 05:25 05:33 16:00 WBC RBC 2.44 L Hgb 6.6 L Hct 20.8 L MCV MCH 27 L MCHC RDW 19.2 H Lymph % (Auto) [place] % (Auto) Eos % (Auto) 8.6 H Lymph # 0.8 L [place] # Eos # 0.5 H Seg Neutrophils % 70.7 H Seg Neuts % (Manual) Lymphocytes % (Manual) Eosinophils % (Manual) Seg Neutrophils # Lymphocytes # (Manual) Eosinophils # (Manual) PT INR D-Dimer POC ABG pH POC ABG pCO2 POC ABG pO2 ABG pO2 ABG HCO3 ABG Base Excess ABG Hemoglobin Oxyhemoglobin Sodium Potassium Chloride Carbon Dioxide BUN Creatinine Glucose POC Glucose 106 H 108 H Calcium Phosphorus Magnesium ALT Alkaline Phosphatase Total Creatine Kinase CK-MB (CK-2) Rel Index Troponin T Albumin LDL Cholesterol Direct PTH Intact Salicylates Acetaminophen Crossmatch 03/08/19 03/08/19 03/08/19 16:00 18:38 Unknown WBC RBC Hgb Hct MCV MCH MCHC RDW Lymph % (Auto) [place] % (Auto) Eos % (Auto) Lymph # [place] # Eos # Seg Neutrophils % Seg Neuts % (Manual) Lymphocytes % (Manual) Eosinophils % (Manual) Seg Neutrophils # Lymphocytes # (Manual) Eosinophils # (Manual) PT INR D-Dimer POC ABG pH POC ABG pCO2 POC ABG pO2 ABG pO2 ABG HCO3 ABG Base Excess ABG Hemoglobin Oxyhemoglobin Sodium Potassium 5.4 H D Chloride Carbon Dioxide BUN 47 H Creatinine 2.6 H Glucose POC Glucose 123 H Calcium Phosphorus Magnesium ALT < 5 L Alkaline Phosphatase Total Creatine Kinase CK-MB (CK-2) Rel Index Troponin T Albumin 2.2 L LDL Cholesterol Direct PTH Intact Salicylates Acetaminophen Crossmatch See Detail 03/09/19 03/09/19 03/09/19 10:48 12:28 13:53 WBC RBC 2.85 L Hgb 7.7 L Hct 24.2 L MCV MCH 27 L MCHC RDW 18.7 H Lymph % (Auto) [place] % (Auto) Eos % (Auto) Lymph # [place] # Eos # Seg Neutrophils % Seg Neuts % (Manual) Lymphocytes % (Manual) Eosinophils % (Manual) Seg Neutrophils # Lymphocytes # (Manual) Eosinophils # (Manual) PT INR D-Dimer POC ABG pH POC ABG pCO2 POC ABG pO2 ABG pO2 ABG HCO3 30.5 H ABG Base Excess 5.6 H ABG Hemoglobin 8.1 L Oxyhemoglobin 93.8 L Sodium Potassium Chloride Carbon Dioxide BUN Creatinine Glucose POC Glucose 114 H Calcium Phosphorus Magnesium ALT Alkaline Phosphatase Total Creatine Kinase CK-MB (CK-2) Rel Index Troponin T Albumin LDL Cholesterol Direct PTH Intact Salicylates Acetaminophen Crossmatch 03/09/19 03/09/19 03/10/19 17:58 23:53 12:01 WBC RBC Hgb Hct MCV MCH MCHC RDW Lymph % (Auto) [place] % (Auto) Eos % (Auto) Lymph # [place] # Eos # Seg Neutrophils % Seg Neuts % (Manual) Lymphocytes % (Manual) Eosinophils % (Manual) Seg Neutrophils # Lymphocytes # (Manual) Eosinophils # (Manual) PT INR D-Dimer POC ABG pH POC ABG pCO2 POC ABG pO2 ABG pO2 ABG HCO3 ABG Base Excess ABG Hemoglobin Oxyhemoglobin Sodium Potassium Chloride Carbon Dioxide BUN Creatinine Glucose POC Glucose 108 H 128 H 144 H Calcium Phosphorus Magnesium ALT Alkaline Phosphatase Total Creatine Kinase CK-MB (CK-2) Rel Index Troponin T Albumin LDL Cholesterol Direct PTH Intact Salicylates Acetaminophen Crossmatch 03/10/19 03/11/19 03/11/19 16:50 00:24 05:02 WBC RBC Hgb Hct MCV MCH MCHC RDW Lymph % (Auto) [place] % (Auto) Eos % (Auto) Lymph # [place] # Eos # Seg Neutrophils % Seg Neuts % (Manual) Lymphocytes % (Manual) Eosinophils % (Manual) Seg Neutrophils # Lymphocytes # (Manual) Eosinophils # (Manual) PT INR D-Dimer POC ABG pH POC ABG pCO2 POC ABG pO2 ABG pO2 ABG HCO3 ABG Base Excess ABG Hemoglobin Oxyhemoglobin Sodium Potassium Chloride Carbon Dioxide BUN Creatinine Glucose POC Glucose 147 H 123 H 120 H Calcium Phosphorus Magnesium ALT Alkaline Phosphatase Total Creatine Kinase CK-MB (CK-2) Rel Index Troponin T Albumin LDL Cholesterol Direct PTH Intact Salicylates Acetaminophen Crossmatch 03/11/19 03/11/19 03/11/19 11:56 12:20 18:37 WBC RBC Hgb Hct MCV MCH MCHC RDW Lymph % (Auto) [place] % (Auto) Eos % (Auto) Lymph # [place] # Eos # Seg Neutrophils % Seg Neuts % (Manual) Lymphocytes % (Manual) Eosinophils % (Manual) Seg Neutrophils # Lymphocytes # (Manual) Eosinophils # (Manual) PT INR D-Dimer POC ABG pH POC ABG pCO2 POC ABG pO2 ABG pO2 ABG HCO3 ABG Base Excess ABG Hemoglobin Oxyhemoglobin Sodium Potassium 5.2 H Chloride Carbon Dioxide BUN Creatinine Glucose POC Glucose 123 H 125 H Calcium Phosphorus Magnesium ALT Alkaline Phosphatase Total Creatine Kinase CK-MB (CK-2) Rel Index Troponin T Albumin LDL Cholesterol Direct PTH Intact Salicylates Acetaminophen Crossmatch 03/11/19 03/12/19 03/12/19 22:52 12:04 18:25 WBC RBC Hgb Hct MCV MCH MCHC RDW Lymph % (Auto) [place] % (Auto) Eos % (Auto) Lymph # [place] # Eos # Seg Neutrophils % Seg Neuts % (Manual) Lymphocytes % (Manual) Eosinophils % (Manual) Seg Neutrophils # Lymphocytes # (Manual) Eosinophils # (Manual) PT INR D-Dimer POC ABG pH POC ABG pCO2 POC ABG pO2 ABG pO2 ABG HCO3 ABG Base Excess ABG Hemoglobin Oxyhemoglobin Sodium Potassium Chloride Carbon Dioxide BUN Creatinine Glucose POC Glucose 110 H 106 H 118 H Calcium Phosphorus Magnesium ALT Alkaline Phosphatase Total Creatine Kinase CK-MB (CK-2) Rel Index Troponin T Albumin LDL Cholesterol Direct PTH Intact Salicylates Acetaminophen Crossmatch 03/12/19 03/13/19 03/13/19 23:36 04:38 04:38 WBC RBC 2.95 L Hgb 7.9 L Hct 24.9 L MCV MCH 27 L MCHC RDW 19.9 H Lymph % (Auto) 11.1 L [place] % (Auto) 8.1 H Eos % (Auto) 4.4 H Lymph # 0.9 L [place] # Eos # Seg Neutrophils % 75.4 H Seg Neuts % (Manual) Lymphocytes % (Manual) Eosinophils % (Manual) Seg Neutrophils # Lymphocytes # (Manual) Eosinophils # (Manual) PT INR D-Dimer POC ABG pH POC ABG pCO2 POC ABG pO2 ABG pO2 ABG HCO3 ABG Base Excess ABG Hemoglobin Oxyhemoglobin Sodium 136 L Potassium 5.1 H Chloride 93.8 L Carbon Dioxide BUN 48 H Creatinine 2.7 H Glucose 102 H POC Glucose 115 H Calcium Phosphorus Magnesium ALT < 5 L Alkaline Phosphatase 143 H Total Creatine Kinase CK-MB (CK-2) Rel Index Troponin T Albumin 2.5 L LDL Cholesterol Direct PTH Intact Salicylates Acetaminophen Crossmatch 03/13/19 03/13/19 03/13/19 05:33 13:37 18:03 WBC RBC Hgb Hct MCV MCH MCHC RDW Lymph % (Auto) [place] % (Auto) Eos % (Auto) Lymph # [place] # Eos # Seg Neutrophils % Seg Neuts % (Manual) Lymphocytes % (Manual) Eosinophils % (Manual) Seg Neutrophils # Lymphocytes # (Manual) Eosinophils # (Manual) PT INR D-Dimer POC ABG pH POC ABG pCO2 POC ABG pO2 ABG pO2 ABG HCO3 ABG Base Excess ABG Hemoglobin Oxyhemoglobin Sodium Potassium Chloride Carbon Dioxide BUN Creatinine Glucose POC Glucose 140 H 150 H 158 H Calcium Phosphorus Magnesium ALT Alkaline Phosphatase Total Creatine Kinase CK-MB (CK-2) Rel Index Troponin T Albumin LDL Cholesterol Direct PTH Intact Salicylates Acetaminophen Crossmatch 03/13/19 03/14/19 03/14/19 23:32 05:24 12:20 WBC RBC Hgb Hct MCV MCH MCHC RDW Lymph % (Auto) [place] % (Auto) Eos % (Auto) Lymph # [place] # Eos # Seg Neutrophils % Seg Neuts % (Manual) Lymphocytes % (Manual) Eosinophils % (Manual) Seg Neutrophils # Lymphocytes # (Manual) Eosinophils # (Manual) PT INR D-Dimer POC ABG pH POC ABG pCO2 POC ABG pO2 ABG pO2 ABG HCO3 ABG Base Excess ABG Hemoglobin Oxyhemoglobin Sodium Potassium Chloride Carbon Dioxide BUN Creatinine Glucose POC Glucose 162 H 146 H 127 H Calcium Phosphorus Magnesium ALT Alkaline Phosphatase Total Creatine Kinase CK-MB (CK-2) Rel Index Troponin T Albumin LDL Cholesterol Direct PTH Intact Salicylates Acetaminophen Crossmatch 03/14/19 03/14/19 03/15/19 18:05 23:57 04:38 WBC 12.8 H RBC 3.11 L Hgb 8.1 L Hct 26.5 L MCV MCH 26 L MCHC 31 L RDW 19.7 H Lymph % (Auto) 4.4 L [place] % (Auto) 7.4 H Eos % (Auto) Lymph # 0.6 L [place] # 0.9 H Eos # Seg Neutrophils % 87.3 H Seg Neuts % (Manual) Lymphocytes % (Manual) Eosinophils % (Manual) Seg Neutrophils # 11.2 H Lymphocytes # (Manual) Eosinophils # (Manual) PT INR D-Dimer POC ABG pH POC ABG pCO2 POC ABG pO2 ABG pO2 ABG HCO3 ABG Base Excess ABG Hemoglobin Oxyhemoglobin Sodium Potassium Chloride Carbon Dioxide BUN Creatinine Glucose POC Glucose 142 H 155 H Calcium Phosphorus Magnesium ALT Alkaline Phosphatase Total Creatine Kinase CK-MB (CK-2) Rel Index Troponin T Albumin LDL Cholesterol Direct PTH Intact Salicylates Acetaminophen Crossmatch 03/15/19 03/15/19 03/15/19 04:38 05:31 11:32 WBC RBC Hgb Hct MCV MCH MCHC RDW Lymph % (Auto) [place] % (Auto) Eos % (Auto) Lymph # [place] # Eos # Seg Neutrophils % Seg Neuts % (Manual) Lymphocytes % (Manual) Eosinophils % (Manual) Seg Neutrophils # Lymphocytes # (Manual) Eosinophils # (Manual) PT INR D-Dimer POC ABG pH POC ABG pCO2 POC ABG pO2 ABG pO2 ABG HCO3 ABG Base Excess ABG Hemoglobin Oxyhemoglobin Sodium 135 L Potassium Chloride 91.9 L Carbon Dioxide BUN 54 H Creatinine 2.8 H Glucose 128 H POC Glucose 160 H 109 H Calcium 11.1 H Phosphorus Magnesium ALT Alkaline Phosphatase 161 H Total Creatine Kinase CK-MB (CK-2) Rel Index Troponin T Albumin 2.3 L LDL Cholesterol Direct PTH Intact Salicylates Acetaminophen Crossmatch 03/15/19 03/15/19 03/16/19 18:15 23:41 05:40 WBC RBC Hgb Hct MCV MCH MCHC RDW Lymph % (Auto) [place] % (Auto) Eos % (Auto) Lymph # [place] # Eos # Seg Neutrophils % Seg Neuts % (Manual) Lymphocytes % (Manual) Eosinophils % (Manual) Seg Neutrophils # Lymphocytes # (Manual) Eosinophils # (Manual) PT INR D-Dimer POC ABG pH POC ABG pCO2 POC ABG pO2 ABG pO2 ABG HCO3 ABG Base Excess ABG Hemoglobin Oxyhemoglobin Sodium Potassium Chloride Carbon Dioxide BUN Creatinine Glucose POC Glucose 151 H 110 H 163 H Calcium Phosphorus Magnesium ALT Alkaline Phosphatase Total Creatine Kinase CK-MB (CK-2) Rel Index Troponin T Albumin LDL Cholesterol Direct PTH Intact Salicylates Acetaminophen Crossmatch 03/16/19 03/16/19 03/16/19 11:55 17:04 23:58 WBC RBC Hgb Hct MCV MCH MCHC RDW Lymph % (Auto) [place] % (Auto) Eos % (Auto) Lymph # [place] # Eos # Seg Neutrophils % Seg Neuts % (Manual) Lymphocytes % (Manual) Eosinophils % (Manual) Seg Neutrophils # Lymphocytes # (Manual) Eosinophils # (Manual) PT INR D-Dimer POC ABG pH POC ABG pCO2 POC ABG pO2 ABG pO2 ABG HCO3 ABG Base Excess ABG Hemoglobin Oxyhemoglobin Sodium Potassium Chloride Carbon Dioxide BUN Creatinine Glucose POC Glucose 114 H 147 H 192 H Calcium Phosphorus Magnesium ALT Alkaline Phosphatase Total Creatine Kinase CK-MB (CK-2) Rel Index Troponin T Albumin LDL Cholesterol Direct PTH Intact Salicylates Acetaminophen Crossmatch 03/17/19 03/17/19 03/17/19 05:53 11:17 17:01 WBC RBC Hgb Hct MCV MCH MCHC RDW Lymph % (Auto) [place] % (Auto) Eos % (Auto) Lymph # [place] # Eos # Seg Neutrophils % Seg Neuts % (Manual) Lymphocytes % (Manual) Eosinophils % (Manual) Seg Neutrophils # Lymphocytes # (Manual) Eosinophils # (Manual) PT INR D-Dimer POC ABG pH POC ABG pCO2 POC ABG pO2 ABG pO2 ABG HCO3 ABG Base Excess ABG Hemoglobin Oxyhemoglobin Sodium Potassium Chloride Carbon Dioxide BUN Creatinine Glucose POC Glucose 151 H 161 H 152 H Calcium Phosphorus Magnesium ALT Alkaline Phosphatase Total Creatine Kinase CK-MB (CK-2) Rel Index Troponin T Albumin LDL Cholesterol Direct PTH Intact Salicylates Acetaminophen Crossmatch 03/17/19 03/18/19 03/18/19 21:47 04:15 04:44 WBC RBC Hgb Hct MCV MCH MCHC RDW Lymph % (Auto) [place] % (Auto) Eos % (Auto) Lymph # [place] # Eos # Seg Neutrophils % Seg Neuts % (Manual) Lymphocytes % (Manual) Eosinophils % (Manual) Seg Neutrophils # Lymphocytes # (Manual) Eosinophils # (Manual) PT INR D-Dimer POC ABG pH POC ABG pCO2 POC ABG pO2 ABG pO2 102.8 H ABG HCO3 28.3 H ABG Base Excess ABG Hemoglobin 10.4 L Oxyhemoglobin 94.5 L Sodium Potassium Chloride Carbon Dioxide BUN Creatinine Glucose POC Glucose 170 H 150 H Calcium Phosphorus Magnesium ALT Alkaline Phosphatase Total Creatine Kinase CK-MB (CK-2) Rel Index Troponin T Albumin LDL Cholesterol Direct PTH Intact Salicylates Acetaminophen Crossmatch 03/18/19 03/18/19 03/18/19 06:38 12:12 17:47 WBC RBC Hgb Hct MCV MCH MCHC RDW Lymph % (Auto) [place] % (Auto) Eos % (Auto) Lymph # [place] # Eos # Seg Neutrophils % Seg Neuts % (Manual) Lymphocytes % (Manual) Eosinophils % (Manual) Seg Neutrophils # Lymphocytes # (Manual) Eosinophils # (Manual) PT INR D-Dimer POC ABG pH 7.510 H POC ABG pCO2 POC ABG pO2 164 H ABG pO2 ABG HCO3 ABG Base Excess ABG Hemoglobin Oxyhemoglobin Sodium Potassium Chloride Carbon Dioxide BUN Creatinine Glucose POC Glucose 145 H 149 H Calcium Phosphorus Magnesium ALT Alkaline Phosphatase Total Creatine Kinase CK-MB (CK-2) Rel Index Troponin T Albumin LDL Cholesterol Direct PTH Intact Salicylates Acetaminophen Crossmatch 03/18/19 03/19/19 03/19/19 23:25 01:11 04:23 WBC 15.6 H RBC 2.51 L Hgb 6.5 L Hct 21.6 L MCV MCH 26 L MCHC 30 L RDW 19.8 H Lymph % (Auto) 6.0 L [place] % (Auto) Eos % (Auto) Lymph # 0.9 L [place] # 1.0 H Eos # Seg Neutrophils % 85.5 H Seg Neuts % (Manual) Lymphocytes % (Manual) Eosinophils % (Manual) Seg Neutrophils # 13.4 H Lymphocytes # (Manual) Eosinophils # (Manual) PT INR D-Dimer POC ABG pH POC ABG pCO2 POC ABG pO2 ABG pO2 78.3 L ABG HCO3 30.7 H ABG Base Excess 5.8 H ABG Hemoglobin 5.8 L Oxyhemoglobin 94.6 L Sodium Potassium Chloride Carbon Dioxide BUN Creatinine Glucose POC Glucose 190 H Calcium Phosphorus Magnesium ALT Alkaline Phosphatase Total Creatine Kinase CK-MB (CK-2) Rel Index Troponin T Albumin LDL Cholesterol Direct PTH Intact Salicylates Acetaminophen Crossmatch 03/19/19 03/19/19 03/19/19 05:22 05:35 08:54 WBC RBC Hgb Hct MCV MCH MCHC RDW Lymph % (Auto) [place] % (Auto) Eos % (Auto) Lymph # [place] # Eos # Seg Neutrophils % Seg Neuts % (Manual) Lymphocytes % (Manual) Eosinophils % (Manual) Seg Neutrophils # Lymphocytes # (Manual) Eosinophils # (Manual) PT INR D-Dimer POC ABG pH POC ABG pCO2 POC ABG pO2 ABG pO2 ABG HCO3 ABG Base Excess ABG Hemoglobin Oxyhemoglobin Sodium Potassium Chloride Carbon Dioxide BUN Creatinine Glucose POC Glucose 167 H Calcium Phosphorus Magnesium ALT Alkaline Phosphatase Total Creatine Kinase CK-MB (CK-2) Rel Index Troponin T Albumin LDL Cholesterol Direct PTH Intact Salicylates Acetaminophen Crossmatch See Detail See Detail 03/19/19 03/19/19 03/19/19 12:36 17:02 23:25 WBC RBC Hgb Hct MCV MCH MCHC RDW Lymph % (Auto) [place] % (Auto) Eos % (Auto) Lymph # [place] # Eos # Seg Neutrophils % Seg Neuts % (Manual) Lymphocytes % (Manual) Eosinophils % (Manual) Seg Neutrophils # Lymphocytes # (Manual) Eosinophils # (Manual) PT INR D-Dimer POC ABG pH POC ABG pCO2 POC ABG pO2 ABG pO2 ABG HCO3 ABG Base Excess ABG Hemoglobin Oxyhemoglobin Sodium Potassium Chloride Carbon Dioxide BUN Creatinine Glucose POC Glucose 167 H 135 H 136 H Calcium Phosphorus Magnesium ALT Alkaline Phosphatase Total Creatine Kinase CK-MB (CK-2) Rel Index Troponin T Albumin LDL Cholesterol Direct PTH Intact Salicylates Acetaminophen Crossmatch 03/20/19 03/20/19 03/20/19 05:38 08:40 08:40 WBC RBC 2.61 L Hgb 7.1 L Hct 22.0 L MCV MCH 27 L MCHC RDW 19.6 H Lymph % (Auto) 8.2 L [place] % (Auto) 8.3 H Eos % (Auto) 5.7 H Lymph # 0.8 L [place] # Eos # 0.5 H Seg Neutrophils % 77.3 H Seg Neuts % (Manual) Lymphocytes % (Manual) Eosinophils % (Manual) Seg Neutrophils # Lymphocytes # (Manual) Eosinophils # (Manual) PT INR D-Dimer POC ABG pH POC ABG pCO2 POC ABG pO2 ABG pO2 ABG HCO3 ABG Base Excess ABG Hemoglobin Oxyhemoglobin Sodium Potassium Chloride 95.9 L Carbon Dioxide BUN 69 H Creatinine 2.8 H Glucose 115 H POC Glucose 134 H Calcium 10.5 H Phosphorus Magnesium ALT Alkaline Phosphatase Total Creatine Kinase CK-MB (CK-2) Rel Index Troponin T Albumin LDL Cholesterol Direct PTH Intact Salicylates Acetaminophen Crossmatch 03/20/19 03/20/19 03/20/19 12:13 18:04 23:49 WBC RBC Hgb Hct MCV MCH MCHC RDW Lymph % (Auto) [place] % (Auto) Eos % (Auto) Lymph # [place] # Eos # Seg Neutrophils % Seg Neuts % (Manual) Lymphocytes % (Manual) Eosinophils % (Manual) Seg Neutrophils # Lymphocytes # (Manual) Eosinophils # (Manual) PT INR D-Dimer POC ABG pH POC ABG pCO2 POC ABG pO2 ABG pO2 ABG HCO3 ABG Base Excess ABG Hemoglobin Oxyhemoglobin Sodium Potassium Chloride Carbon Dioxide BUN Creatinine Glucose POC Glucose 144 H 165 H 172 H Calcium Phosphorus Magnesium ALT Alkaline Phosphatase Total Creatine Kinase CK-MB (CK-2) Rel Index Troponin T Albumin LDL Cholesterol Direct PTH Intact Salicylates Acetaminophen Crossmatch 03/21/19 03/21/19 03/21/19 05:00 06:29 06:30 WBC RBC 2.72 L Hgb 7.4 L Hct 22.9 L MCV MCH 27 L MCHC RDW 19.4 H Lymph % (Auto) [place] % (Auto) Eos % (Auto) Lymph # [place] # Eos # Seg Neutrophils % Seg Neuts % (Manual) 81.0 H Lymphocytes % (Manual) 8.0 L Eosinophils % (Manual) 8.0 H Seg Neutrophils # Lymphocytes # (Manual) 0.7 L Eosinophils # (Manual) 0.7 H PT INR D-Dimer POC ABG pH POC ABG pCO2 POC ABG pO2 ABG pO2 ABG HCO3 ABG Base Excess ABG Hemoglobin Oxyhemoglobin Sodium Potassium Chloride Carbon Dioxide 33 H BUN 43 H Creatinine 1.7 H Glucose 145 H POC Glucose 156 H Calcium Phosphorus Magnesium ALT Alkaline Phosphatase 212 H Total Creatine Kinase CK-MB (CK-2) Rel Index Troponin T Albumin 2.2 L LDL Cholesterol Direct PTH Intact Salicylates Acetaminophen Crossmatch 03/21/19 03/21/19 03/22/19 12:02 18:07 00:21 WBC RBC Hgb Hct MCV MCH MCHC RDW Lymph % (Auto) [place] % (Auto) Eos % (Auto) Lymph # [place] # Eos # Seg Neutrophils % Seg Neuts % (Manual) Lymphocytes % (Manual) Eosinophils % (Manual) Seg Neutrophils # Lymphocytes # (Manual) Eosinophils # (Manual) PT INR D-Dimer POC ABG pH POC ABG pCO2 POC ABG pO2 ABG pO2 ABG HCO3 ABG Base Excess ABG Hemoglobin Oxyhemoglobin Sodium Potassium Chloride Carbon Dioxide BUN Creatinine Glucose POC Glucose 163 H 144 H 153 H Calcium Phosphorus Magnesium ALT Alkaline Phosphatase Total Creatine Kinase CK-MB (CK-2) Rel Index Troponin T Albumin LDL Cholesterol Direct PTH Intact Salicylates Acetaminophen Crossmatch 03/22/19 03/22/19 03/22/19 05:23 05:23 05:31 WBC RBC 2.58 L Hgb 7.1 L Hct 21.8 L MCV MCH 27 L MCHC RDW 19.2 H Lymph % (Auto) [place] % (Auto) Eos % (Auto) Lymph # [place] # Eos # Seg Neutrophils % Seg Neuts % (Manual) Lymphocytes % (Manual) Eosinophils % (Manual) Seg Neutrophils # Lymphocytes # (Manual) Eosinophils # (Manual) PT INR D-Dimer POC ABG pH POC ABG pCO2 POC ABG pO2 ABG pO2 ABG HCO3 ABG Base Excess ABG Hemoglobin Oxyhemoglobin Sodium 147 H Potassium Chloride Carbon Dioxide BUN 68 H Creatinine 2.5 H Glucose POC Glucose 116 H Calcium 10.3 H Phosphorus Magnesium ALT Alkaline Phosphatase Total Creatine Kinase CK-MB (CK-2) Rel Index Troponin T Albumin LDL Cholesterol Direct PTH Intact Salicylates Acetaminophen Crossmatch 03/22/19 03/22/19 03/22/19 08:48 12:37 17:35 WBC RBC Hgb Hct MCV MCH MCHC RDW Lymph % (Auto) [place] % (Auto) Eos % (Auto) Lymph # [place] # Eos # Seg Neutrophils % Seg Neuts % (Manual) Lymphocytes % (Manual) Eosinophils % (Manual) Seg Neutrophils # Lymphocytes # (Manual) Eosinophils # (Manual) PT INR D-Dimer POC ABG pH POC ABG pCO2 POC ABG pO2 ABG pO2 ABG HCO3 ABG Base Excess ABG Hemoglobin Oxyhemoglobin Sodium Potassium Chloride Carbon Dioxide BUN Creatinine Glucose POC Glucose 143 H 155 H Calcium Phosphorus Magnesium ALT Alkaline Phosphatase Total Creatine Kinase CK-MB (CK-2) Rel Index Troponin T Albumin LDL Cholesterol Direct PTH Intact Salicylates Acetaminophen Crossmatch See Detail 03/23/19 03/23/19 03/23/19 00:07 04:00 04:00 WBC 11.2 H RBC 2.32 L Hgb 6.4 L Hct 19.7 L* MCV MCH MCHC RDW 19.4 H Lymph % (Auto) [place] % (Auto) Eos % (Auto) Lymph # [place] # Eos # Seg Neutrophils % Seg Neuts % (Manual) Lymphocytes % (Manual) Eosinophils % (Manual) Seg Neutrophils # Lymphocytes # (Manual) Eosinophils # (Manual) PT INR D-Dimer POC ABG pH POC ABG pCO2 POC ABG pO2 ABG pO2 ABG HCO3 ABG Base Excess ABG Hemoglobin Oxyhemoglobin Sodium 147 H Potassium 5.2 H Chloride Carbon Dioxide BUN 86 H Creatinine 3.2 H Glucose 128 H POC Glucose 135 H Calcium 10.3 H Phosphorus Magnesium ALT Alkaline Phosphatase Total Creatine Kinase CK-MB (CK-2) Rel Index Troponin T Albumin LDL Cholesterol Direct PTH Intact Salicylates Acetaminophen Crossmatch 03/23/19 03/23/19 03/23/19 05:21 11:36 11:36 WBC RBC Hgb 7.9 L Hct 25.0 L MCV MCH MCHC RDW Lymph % (Auto) [place] % (Auto) Eos % (Auto) Lymph # [place] # Eos # Seg Neutrophils % Seg Neuts % (Manual) Lymphocytes % (Manual) Eosinophils % (Manual) Seg Neutrophils # Lymphocytes # (Manual) Eosinophils # (Manual) PT INR D-Dimer POC ABG pH POC ABG pCO2 POC ABG pO2 ABG pO2 ABG HCO3 ABG Base Excess ABG Hemoglobin Oxyhemoglobin Sodium Potassium Chloride Carbon Dioxide BUN Creatinine Glucose POC Glucose 132 H 147 H Calcium Phosphorus Magnesium ALT Alkaline Phosphatase Total Creatine Kinase CK-MB (CK-2) Rel Index Troponin T Albumin LDL Cholesterol Direct PTH Intact Salicylates Acetaminophen Crossmatch 03/23/19 03/24/19 03/24/19 17:31 01:22 04:20 WBC 12.2 H RBC 3.05 L Hgb 8.3 L Hct 25.9 L MCV MCH 27 L MCHC RDW 18.7 H Lymph % (Auto) [place] % (Auto) Eos % (Auto) Lymph # [place] # Eos # Seg Neutrophils % Seg Neuts % (Manual) Lymphocytes % (Manual) Eosinophils % (Manual) Seg Neutrophils # Lymphocytes # (Manual) Eosinophils # (Manual) PT INR D-Dimer POC ABG pH POC ABG pCO2 POC ABG pO2 ABG pO2 ABG HCO3 ABG Base Excess ABG Hemoglobin Oxyhemoglobin Sodium Potassium Chloride Carbon Dioxide BUN Creatinine Glucose POC Glucose 182 H 113 H Calcium Phosphorus Magnesium ALT Alkaline Phosphatase Total Creatine Kinase CK-MB (CK-2) Rel Index Troponin T Albumin LDL Cholesterol Direct PTH Intact Salicylates Acetaminophen Crossmatch 03/24/19 03/24/19 03/24/19 04:20 11:59 18:14 WBC RBC Hgb Hct MCV MCH MCHC RDW Lymph % (Auto) [place] % (Auto) Eos % (Auto) Lymph # [place] # Eos # Seg Neutrophils % Seg Neuts % (Manual) Lymphocytes % (Manual) Eosinophils % (Manual) Seg Neutrophils # Lymphocytes # (Manual) Eosinophils # (Manual) PT INR D-Dimer POC ABG pH POC ABG pCO2 POC ABG pO2 ABG pO2 ABG HCO3 ABG Base Excess ABG Hemoglobin Oxyhemoglobin Sodium Potassium Chloride 94.8 L Carbon Dioxide 32 H BUN 53 H Creatinine 2.3 H Glucose POC Glucose 163 H 134 H Calcium Phosphorus Magnesium ALT Alkaline Phosphatase Total Creatine Kinase CK-MB (CK-2) Rel Index Troponin T Albumin LDL Cholesterol Direct PTH Intact Salicylates Acetaminophen Crossmatch 03/24/19 03/25/19 03/25/19 23:15 05:52 12:02 WBC RBC Hgb Hct MCV MCH MCHC RDW Lymph % (Auto) [place] % (Auto) Eos % (Auto) Lymph # [place] # Eos # Seg Neutrophils % Seg Neuts % (Manual) Lymphocytes % (Manual) Eosinophils % (Manual) Seg Neutrophils # Lymphocytes # (Manual) Eosinophils # (Manual) PT INR D-Dimer POC ABG pH POC ABG pCO2 POC ABG pO2 ABG pO2 ABG HCO3 ABG Base Excess ABG Hemoglobin Oxyhemoglobin Sodium Potassium Chloride Carbon Dioxide BUN Creatinine Glucose POC Glucose 129 H 123 H 125 H Calcium Phosphorus Magnesium ALT Alkaline Phosphatase Total Creatine Kinase CK-MB (CK-2) Rel Index Troponin T Albumin LDL Cholesterol Direct PTH Intact Salicylates Acetaminophen Crossmatch 03/25/19 03/26/19 03/26/19 17:27 00:30 05:35 WBC RBC 3.01 L Hgb 8.1 L Hct 25.7 L MCV MCH 27 L MCHC RDW 19.2 H Lymph % (Auto) 11.4 L [place] % (Auto) Eos % (Auto) 8.0 H Lymph # 1.0 L [place] # Eos # 0.7 H Seg Neutrophils % 73.9 H Seg Neuts % (Manual) Lymphocytes % (Manual) Eosinophils % (Manual) Seg Neutrophils # Lymphocytes # (Manual) Eosinophils # (Manual) PT INR D-Dimer POC ABG pH POC ABG pCO2 POC ABG pO2 ABG pO2 ABG HCO3 ABG Base Excess ABG Hemoglobin Oxyhemoglobin Sodium Potassium Chloride Carbon Dioxide BUN Creatinine Glucose POC Glucose 130 H 129 H Calcium Phosphorus Magnesium ALT Alkaline Phosphatase Total Creatine Kinase CK-MB (CK-2) Rel Index Troponin T Albumin LDL Cholesterol Direct PTH Intact Salicylates Acetaminophen Crossmatch 03/26/19 03/26/19 03/26/19 05:35 05:45 12:16 WBC RBC Hgb Hct MCV MCH MCHC RDW Lymph % (Auto) [place] % (Auto) Eos % (Auto) Lymph # [place] # Eos # Seg Neutrophils % Seg Neuts % (Manual) Lymphocytes % (Manual) Eosinophils % (Manual) Seg Neutrophils # Lymphocytes # (Manual) Eosinophils # (Manual) PT INR D-Dimer POC ABG pH POC ABG pCO2 POC ABG pO2 ABG pO2 ABG HCO3 ABG Base Excess ABG Hemoglobin Oxyhemoglobin Sodium Potassium Chloride 94.9 L Carbon Dioxide 31 H BUN 44 H Creatinine 2.0 H Glucose POC Glucose 118 H 107 H Calcium Phosphorus Magnesium ALT Alkaline Phosphatase Total Creatine Kinase CK-MB (CK-2) Rel Index Troponin T Albumin LDL Cholesterol Direct PTH Intact Salicylates Acetaminophen Crossmatch 03/26/19 03/27/19 03/27/19 17:56 00:36 05:37 WBC RBC Hgb Hct MCV MCH MCHC RDW Lymph % (Auto) [place] % (Auto) Eos % (Auto) Lymph # [place] # Eos # Seg Neutrophils % Seg Neuts % (Manual) Lymphocytes % (Manual) Eosinophils % (Manual) Seg Neutrophils # Lymphocytes # (Manual) Eosinophils # (Manual) PT INR D-Dimer POC ABG pH POC ABG pCO2 POC ABG pO2 ABG pO2 ABG HCO3 ABG Base Excess ABG Hemoglobin Oxyhemoglobin Sodium Potassium Chloride Carbon Dioxide BUN Creatinine Glucose POC Glucose 107 H 110 H 122 H Calcium Phosphorus Magnesium ALT Alkaline Phosphatase Total Creatine Kinase CK-MB (CK-2) Rel Index Troponin T Albumin LDL Cholesterol Direct PTH Intact Salicylates Acetaminophen Crossmatch 03/27/19 03/27/19 03/28/19 11:22 18:00 05:17 WBC RBC Hgb Hct MCV MCH MCHC RDW Lymph % (Auto) [place] % (Auto) Eos % (Auto) Lymph # [place] # Eos # Seg Neutrophils % Seg Neuts % (Manual) Lymphocytes % (Manual) Eosinophils % (Manual) Seg Neutrophils # Lymphocytes # (Manual) Eosinophils # (Manual) PT INR D-Dimer POC ABG pH POC ABG pCO2 POC ABG pO2 ABG pO2 ABG HCO3 ABG Base Excess ABG Hemoglobin Oxyhemoglobin Sodium Potassium Chloride Carbon Dioxide BUN Creatinine Glucose POC Glucose 120 H 111 H 107 H Calcium Phosphorus Magnesium ALT Alkaline Phosphatase Total Creatine Kinase CK-MB (CK-2) Rel Index Troponin T Albumin LDL Cholesterol Direct PTH Intact Salicylates Acetaminophen Crossmatch 03/28/19 03/28/19 03/29/19 12:27 18:08 05:47 WBC RBC Hgb Hct MCV MCH MCHC RDW Lymph % (Auto) [place] % (Auto) Eos % (Auto) Lymph # [place] # Eos # Seg Neutrophils % Seg Neuts % (Manual) Lymphocytes % (Manual) Eosinophils % (Manual) Seg Neutrophils # Lymphocytes # (Manual) Eosinophils # (Manual) PT INR D-Dimer POC ABG pH POC ABG pCO2 POC ABG pO2 ABG pO2 ABG HCO3 ABG Base Excess ABG Hemoglobin Oxyhemoglobin Sodium Potassium Chloride Carbon Dioxide BUN Creatinine Glucose POC Glucose 114 H 121 H 112 H Calcium Phosphorus Magnesium ALT Alkaline Phosphatase Total Creatine Kinase CK-MB (CK-2) Rel Index Troponin T Albumin LDL Cholesterol Direct PTH Intact Salicylates Acetaminophen Crossmatch 03/29/19 03/29/19 03/30/19 12:14 18:08 00:31 WBC RBC Hgb Hct MCV MCH MCHC RDW Lymph % (Auto) [place] % (Auto) Eos % (Auto) Lymph # [place] # Eos # Seg Neutrophils % Seg Neuts % (Manual) Lymphocytes % (Manual) Eosinophils % (Manual) Seg Neutrophils # Lymphocytes # (Manual) Eosinophils # (Manual) PT INR D-Dimer POC ABG pH POC ABG pCO2 POC ABG pO2 ABG pO2 ABG HCO3 ABG Base Excess ABG Hemoglobin Oxyhemoglobin Sodium Potassium Chloride Carbon Dioxide BUN Creatinine Glucose POC Glucose 117 H 140 H 114 H Calcium Phosphorus Magnesium ALT Alkaline Phosphatase Total Creatine Kinase CK-MB (CK-2) Rel Index Troponin T Albumin LDL Cholesterol Direct PTH Intact Salicylates Acetaminophen Crossmatch 03/30/19 03/30/19 03/30/19 10:13 10:13 23:53 WBC RBC 2.81 L Hgb 7.7 L Hct 24.3 L MCV MCH 27 L MCHC RDW 19.0 H Lymph % (Auto) 12.2 L [place] % (Auto) Eos % (Auto) 7.9 H Lymph # 1.0 L [place] # Eos # 0.6 H Seg Neutrophils % 72.3 H Seg Neuts % (Manual) Lymphocytes % (Manual) Eosinophils % (Manual) Seg Neutrophils # Lymphocytes # (Manual) Eosinophils # (Manual) PT INR D-Dimer POC ABG pH POC ABG pCO2 POC ABG pO2 ABG pO2 ABG HCO3 ABG Base Excess ABG Hemoglobin Oxyhemoglobin Sodium Potassium 5.1 H Chloride 96.5 L Carbon Dioxide BUN 73 H Creatinine 3.9 H D Glucose POC Glucose 114 H Calcium 10.3 H Phosphorus 6.30 H Magnesium 2.70 H ALT Alkaline Phosphatase 185 H Total Creatine Kinase CK-MB (CK-2) Rel Index Troponin T Albumin 2.6 L LDL Cholesterol Direct PTH Intact Salicylates Acetaminophen Crossmatch 03/31/19 03/31/19 03/31/19 05:45 10:26 10:26 WBC RBC 3.01 L Hgb 8.2 L Hct 26.4 L MCV MCH 27 L MCHC 31 L RDW 20.3 H Lymph % (Auto) 13.3 L [place] % (Auto) Eos % (Auto) 7.2 H Lymph # 1.1 L [place] # Eos # 0.6 H Seg Neutrophils % 72.1 H Seg Neuts % (Manual) Lymphocytes % (Manual) Eosinophils % (Manual) Seg Neutrophils # Lymphocytes # (Manual) Eosinophils # (Manual) PT INR D-Dimer POC ABG pH POC ABG pCO2 POC ABG pO2 ABG pO2 ABG HCO3 ABG Base Excess ABG Hemoglobin Oxyhemoglobin Sodium Potassium Chloride 96.9 L Carbon Dioxide 33 H BUN 37 H Creatinine 2.4 H Glucose POC Glucose 108 H Calcium 10.3 H Phosphorus Magnesium ALT Alkaline Phosphatase Total Creatine Kinase CK-MB (CK-2) Rel Index Troponin T Albumin LDL Cholesterol Direct PTH Intact Salicylates Acetaminophen Crossmatch 03/31/19 04/01/19 04/01/19 12:38 05:48 12:06 WBC RBC Hgb Hct MCV MCH MCHC RDW Lymph % (Auto) [place] % (Auto) Eos % (Auto) Lymph # [place] # Eos # Seg Neutrophils % Seg Neuts % (Manual) Lymphocytes % (Manual) Eosinophils % (Manual) Seg Neutrophils # Lymphocytes # (Manual) Eosinophils # (Manual) PT INR D-Dimer POC ABG pH POC ABG pCO2 POC ABG pO2 ABG pO2 ABG HCO3 ABG Base Excess ABG Hemoglobin Oxyhemoglobin Sodium Potassium Chloride Carbon Dioxide BUN Creatinine Glucose POC Glucose 108 H 114 H 111 H Calcium Phosphorus Magnesium ALT Alkaline Phosphatase Total Creatine Kinase CK-MB (CK-2) Rel Index Troponin T Albumin LDL Cholesterol Direct PTH Intact Salicylates Acetaminophen Crossmatch 04/01/19 04/02/19 04/04/19 18:24 00:36 23:55 WBC RBC Hgb Hct MCV MCH MCHC RDW Lymph % (Auto) [place] % (Auto) Eos % (Auto) Lymph # [place] # Eos # Seg Neutrophils % Seg Neuts % (Manual) Lymphocytes % (Manual) Eosinophils % (Manual) Seg Neutrophils # Lymphocytes # (Manual) Eosinophils # (Manual) PT INR D-Dimer POC ABG pH POC ABG pCO2 POC ABG pO2 ABG pO2 ABG HCO3 ABG Base Excess ABG Hemoglobin Oxyhemoglobin Sodium Potassium Chloride Carbon Dioxide BUN Creatinine Glucose POC Glucose 113 H 117 H 109 H Calcium Phosphorus Magnesium ALT Alkaline Phosphatase Total Creatine Kinase CK-MB (CK-2) Rel Index Troponin T Albumin LDL Cholesterol Direct PTH Intact Salicylates Acetaminophen Crossmatch 04/06/19 04/06/19 04/06/19 00:11 06:02 23:30 WBC RBC Hgb Hct MCV MCH MCHC RDW Lymph % (Auto) [place] % (Auto) Eos % (Auto) Lymph # [place] # Eos # Seg Neutrophils % Seg Neuts % (Manual) Lymphocytes % (Manual) Eosinophils % (Manual) Seg Neutrophils # Lymphocytes # (Manual) Eosinophils # (Manual) PT INR D-Dimer POC ABG pH POC ABG pCO2 POC ABG pO2 ABG pO2 ABG HCO3 ABG Base Excess ABG Hemoglobin Oxyhemoglobin Sodium Potassium Chloride Carbon Dioxide BUN Creatinine Glucose POC Glucose 116 H 112 H 112 H Calcium Phosphorus Magnesium ALT Alkaline Phosphatase Total Creatine Kinase CK-MB (CK-2) Rel Index Troponin T Albumin LDL Cholesterol Direct PTH Intact Salicylates Acetaminophen Crossmatch 04/08/19 04/08/19 04/08/19 02:23 06:19 13:01 WBC RBC Hgb Hct MCV MCH MCHC RDW Lymph % (Auto) [place] % (Auto) Eos % (Auto) Lymph # [place] # Eos # Seg Neutrophils % Seg Neuts % (Manual) Lymphocytes % (Manual) Eosinophils % (Manual) Seg Neutrophils # Lymphocytes # (Manual) Eosinophils # (Manual) PT INR D-Dimer POC ABG pH POC ABG pCO2 POC ABG pO2 ABG pO2 ABG HCO3 ABG Base Excess ABG Hemoglobin Oxyhemoglobin Sodium Potassium Chloride Carbon Dioxide BUN Creatinine Glucose POC Glucose 144 H 126 H 118 H Calcium Phosphorus Magnesium ALT Alkaline Phosphatase Total Creatine Kinase CK-MB (CK-2) Rel Index Troponin T Albumin LDL Cholesterol Direct PTH Intact Salicylates Acetaminophen Crossmatch 04/08/19 04/09/19 04/10/19 23:28 05:52 06:34 WBC RBC Hgb Hct MCV MCH MCHC RDW Lymph % (Auto) [place] % (Auto) Eos % (Auto) Lymph # [place] # Eos # Seg Neutrophils % Seg Neuts % (Manual) Lymphocytes % (Manual) Eosinophils % (Manual) Seg Neutrophils # Lymphocytes # (Manual) Eosinophils # (Manual) PT INR D-Dimer POC ABG pH POC ABG pCO2 POC ABG pO2 ABG pO2 ABG HCO3 ABG Base Excess ABG Hemoglobin Oxyhemoglobin Sodium Potassium Chloride Carbon Dioxide BUN Creatinine Glucose POC Glucose 119 H 116 H 114 H Calcium Phosphorus Magnesium ALT Alkaline Phosphatase Total Creatine Kinase CK-MB (CK-2) Rel Index Troponin T Albumin LDL Cholesterol Direct PTH Intact Salicylates Acetaminophen Crossmatch 04/10/19 04/10/19 04/11/19 12:34 18:59 00:36 WBC RBC Hgb Hct MCV MCH MCHC RDW Lymph % (Auto) [place] % (Auto) Eos % (Auto) Lymph # [place] # Eos # Seg Neutrophils % Seg Neuts % (Manual) Lymphocytes % (Manual) Eosinophils % (Manual) Seg Neutrophils # Lymphocytes # (Manual) Eosinophils # (Manual) PT INR D-Dimer POC ABG pH POC ABG pCO2 POC ABG pO2 ABG pO2 ABG HCO3 ABG Base Excess ABG Hemoglobin Oxyhemoglobin Sodium Potassium Chloride Carbon Dioxide BUN Creatinine Glucose POC Glucose 112 H 109 H 124 H Calcium Phosphorus Magnesium ALT Alkaline Phosphatase Total Creatine Kinase CK-MB (CK-2) Rel Index Troponin T Albumin LDL Cholesterol Direct PTH Intact Salicylates Acetaminophen Crossmatch 04/11/19 04/11/19 04/12/19 08:01 17:25 02:18 WBC RBC Hgb Hct MCV MCH MCHC RDW Lymph % (Auto) [place] % (Auto) Eos % (Auto) Lymph # [place] # Eos # Seg Neutrophils % Seg Neuts % (Manual) Lymphocytes % (Manual) Eosinophils % (Manual) Seg Neutrophils # Lymphocytes # (Manual) Eosinophils # (Manual) PT INR D-Dimer POC ABG pH POC ABG pCO2 POC ABG pO2 ABG pO2 ABG HCO3 ABG Base Excess ABG Hemoglobin Oxyhemoglobin Sodium Potassium Chloride Carbon Dioxide BUN Creatinine Glucose POC Glucose 118 H 106 H 125 H Calcium Phosphorus Magnesium ALT Alkaline Phosphatase Total Creatine Kinase CK-MB (CK-2) Rel Index Troponin T Albumin LDL Cholesterol Direct PTH Intact Salicylates Acetaminophen Crossmatch 04/12/19 04/12/19 04/12/19 06:24 12:22 17:13 WBC RBC Hgb Hct MCV MCH MCHC RDW Lymph % (Auto) [place] % (Auto) Eos % (Auto) Lymph # [place] # Eos # Seg Neutrophils % Seg Neuts % (Manual) Lymphocytes % (Manual) Eosinophils % (Manual) Seg Neutrophils # Lymphocytes # (Manual) Eosinophils # (Manual) PT INR D-Dimer POC ABG pH POC ABG pCO2 POC ABG pO2 ABG pO2 ABG HCO3 ABG Base Excess ABG Hemoglobin Oxyhemoglobin Sodium Potassium Chloride Carbon Dioxide BUN Creatinine Glucose POC Glucose 128 H 114 H 110 H Calcium Phosphorus Magnesium ALT Alkaline Phosphatase Total Creatine Kinase CK-MB (CK-2) Rel Index Troponin T Albumin LDL Cholesterol Direct PTH Intact Salicylates Acetaminophen Crossmatch 04/13/19 04/13/19 04/13/19 06:59 07:31 07:31 WBC RBC 3.34 L Hgb 8.9 L Hct 28.6 L MCV MCH 27 L MCHC 31 L RDW 19.6 H Lymph % (Auto) [place] % (Auto) Eos % (Auto) Lymph # [place] # Eos # Seg Neutrophils % Seg Neuts % (Manual) Lymphocytes % (Manual) Eosinophils % (Manual) Seg Neutrophils # Lymphocytes # (Manual) Eosinophils # (Manual) PT INR D-Dimer POC ABG pH POC ABG pCO2 POC ABG pO2 ABG pO2 ABG HCO3 ABG Base Excess ABG Hemoglobin Oxyhemoglobin Sodium Potassium Chloride 96.4 L Carbon Dioxide 33 H BUN 66 H Creatinine 4.5 H Glucose 103 H POC Glucose 107 H Calcium Phosphorus Magnesium ALT Alkaline Phosphatase Total Creatine Kinase CK-MB (CK-2) Rel Index Troponin T Albumin LDL Cholesterol Direct PTH Intact Salicylates Acetaminophen Crossmatch 04/13/19 04/14/19 04/14/19 23:43 05:50 13:07 WBC RBC Hgb Hct MCV MCH MCHC RDW Lymph % (Auto) [place] % (Auto) Eos % (Auto) Lymph # [place] # Eos # Seg Neutrophils % Seg Neuts % (Manual) Lymphocytes % (Manual) Eosinophils % (Manual) Seg Neutrophils # Lymphocytes # (Manual) Eosinophils # (Manual) PT INR D-Dimer POC ABG pH POC ABG pCO2 POC ABG pO2 ABG pO2 ABG HCO3 ABG Base Excess ABG Hemoglobin Oxyhemoglobin Sodium Potassium Chloride Carbon Dioxide BUN Creatinine Glucose POC Glucose 119 H 112 H 112 H Calcium Phosphorus Magnesium ALT Alkaline Phosphatase Total Creatine Kinase CK-MB (CK-2) Rel Index Troponin T Albumin LDL Cholesterol Direct PTH Intact Salicylates Acetaminophen Crossmatch 04/14/19 04/15/19 04/15/19 18:35 01:18 05:17 WBC RBC Hgb Hct MCV MCH MCHC RDW Lymph % (Auto) [place] % (Auto) Eos % (Auto) Lymph # [place] # Eos # Seg Neutrophils % Seg Neuts % (Manual) Lymphocytes % (Manual) Eosinophils % (Manual) Seg Neutrophils # Lymphocytes # (Manual) Eosinophils # (Manual) PT INR D-Dimer POC ABG pH POC ABG pCO2 POC ABG pO2 ABG pO2 ABG HCO3 ABG Base Excess ABG Hemoglobin Oxyhemoglobin Sodium Potassium Chloride Carbon Dioxide BUN Creatinine Glucose POC Glucose 114 H 114 H 114 H Calcium Phosphorus Magnesium ALT Alkaline Phosphatase Total Creatine Kinase CK-MB (CK-2) Rel Index Troponin T Albumin LDL Cholesterol Direct PTH Intact Salicylates Acetaminophen Crossmatch 04/15/19 04/15/19 04/16/19 11:50 23:39 05:41 WBC RBC Hgb Hct MCV MCH MCHC RDW Lymph % (Auto) [place] % (Auto) Eos % (Auto) Lymph # [place] # Eos # Seg Neutrophils % Seg Neuts % (Manual) Lymphocytes % (Manual) Eosinophils % (Manual) Seg Neutrophils # Lymphocytes # (Manual) Eosinophils # (Manual) PT INR D-Dimer POC ABG pH POC ABG pCO2 POC ABG pO2 ABG pO2 ABG HCO3 ABG Base Excess ABG Hemoglobin Oxyhemoglobin Sodium Potassium Chloride Carbon Dioxide BUN Creatinine Glucose POC Glucose 109 H 115 H 125 H Calcium Phosphorus Magnesium ALT Alkaline Phosphatase Total Creatine Kinase CK-MB (CK-2) Rel Index Troponin T Albumin LDL Cholesterol Direct PTH Intact Salicylates Acetaminophen Crossmatch 04/16/19 04/17/19 04/17/19 12:53 01:00 12:38 WBC RBC Hgb Hct MCV MCH MCHC RDW Lymph % (Auto) [place] % (Auto) Eos % (Auto) Lymph # [place] # Eos # Seg Neutrophils % Seg Neuts % (Manual) Lymphocytes % (Manual) Eosinophils % (Manual) Seg Neutrophils # Lymphocytes # (Manual) Eosinophils # (Manual) PT INR D-Dimer POC ABG pH POC ABG pCO2 POC ABG pO2 ABG pO2 ABG HCO3 ABG Base Excess ABG Hemoglobin Oxyhemoglobin Sodium Potassium Chloride Carbon Dioxide BUN Creatinine Glucose POC Glucose 121 H 127 H 159 H Calcium Phosphorus Magnesium ALT Alkaline Phosphatase Total Creatine Kinase CK-MB (CK-2) Rel Index Troponin T Albumin LDL Cholesterol Direct PTH Intact Salicylates Acetaminophen Crossmatch 04/17/19 04/17/19 04/18/19 18:27 23:36 07:19 WBC RBC 3.49 L Hgb 9.0 L Hct 29.9 L MCV MCH 26 L MCHC 30 L RDW 20.0 H Lymph % (Auto) [place] % (Auto) Eos % (Auto) Lymph # [place] # Eos # Seg Neutrophils % Seg Neuts % (Manual) Lymphocytes % (Manual) Eosinophils % (Manual) Seg Neutrophils # Lymphocytes # (Manual) Eosinophils # (Manual) PT INR D-Dimer POC ABG pH POC ABG pCO2 POC ABG pO2 ABG pO2 ABG HCO3 ABG Base Excess ABG Hemoglobin Oxyhemoglobin Sodium Potassium Chloride Carbon Dioxide BUN Creatinine Glucose POC Glucose 109 H 134 H Calcium Phosphorus Magnesium ALT Alkaline Phosphatase Total Creatine Kinase CK-MB (CK-2) Rel Index Troponin T Albumin LDL Cholesterol Direct PTH Intact Salicylates Acetaminophen Crossmatch 04/18/19 04/18/19 04/18/19 07:19 12:16 17:09 WBC RBC Hgb Hct MCV MCH MCHC RDW Lymph % (Auto) [place] % (Auto) Eos % (Auto) Lymph # [place] # Eos # Seg Neutrophils % Seg Neuts % (Manual) Lymphocytes % (Manual) Eosinophils % (Manual) Seg Neutrophils # Lymphocytes # (Manual) Eosinophils # (Manual) PT INR D-Dimer POC ABG pH POC ABG pCO2 POC ABG pO2 ABG pO2 ABG HCO3 ABG Base Excess ABG Hemoglobin Oxyhemoglobin Sodium Potassium Chloride Carbon Dioxide BUN 41 H Creatinine 2.9 H Glucose 122 H POC Glucose 125 H 131 H Calcium Phosphorus Magnesium ALT Alkaline Phosphatase Total Creatine Kinase CK-MB (CK-2) Rel Index Troponin T Albumin LDL Cholesterol Direct PTH Intact Salicylates Acetaminophen Crossmatch 04/18/19 04/19/19 04/19/19 23:57 05:55 11:35 WBC RBC Hgb Hct MCV MCH MCHC RDW Lymph % (Auto) [place] % (Auto) Eos % (Auto) Lymph # [place] # Eos # Seg Neutrophils % Seg Neuts % (Manual) Lymphocytes % (Manual) Eosinophils % (Manual) Seg Neutrophils # Lymphocytes # (Manual) Eosinophils # (Manual) PT INR D-Dimer POC ABG pH POC ABG pCO2 POC ABG pO2 ABG pO2 ABG HCO3 ABG Base Excess ABG Hemoglobin Oxyhemoglobin Sodium Potassium Chloride Carbon Dioxide BUN Creatinine Glucose POC Glucose 159 H 144 H 177 H Calcium Phosphorus Magnesium ALT Alkaline Phosphatase Total Creatine Kinase CK-MB (CK-2) Rel Index Troponin T Albumin LDL Cholesterol Direct PTH Intact Salicylates Acetaminophen Crossmatch 04/19/19 04/20/19 04/20/19 16:36 02:05 06:28 WBC RBC Hgb Hct MCV MCH MCHC RDW Lymph % (Auto) [place] % (Auto) Eos % (Auto) Lymph # [place] # Eos # Seg Neutrophils % Seg Neuts % (Manual) Lymphocytes % (Manual) Eosinophils % (Manual) Seg Neutrophils # Lymphocytes # (Manual) Eosinophils # (Manual) PT INR D-Dimer POC ABG pH POC ABG pCO2 POC ABG pO2 ABG pO2 ABG HCO3 ABG Base Excess ABG Hemoglobin Oxyhemoglobin Sodium Potassium Chloride Carbon Dioxide BUN Creatinine Glucose POC Glucose 134 H 142 H 132 H Calcium Phosphorus Magnesium ALT Alkaline Phosphatase Total Creatine Kinase CK-MB (CK-2) Rel Index Troponin T Albumin LDL Cholesterol Direct PTH Intact Salicylates Acetaminophen Crossmatch 04/20/19 04/20/19 04/21/19 12:37 23:34 05:59 WBC RBC Hgb Hct MCV MCH MCHC RDW Lymph % (Auto) [place] % (Auto) Eos % (Auto) Lymph # [place] # Eos # Seg Neutrophils % Seg Neuts % (Manual) Lymphocytes % (Manual) Eosinophils % (Manual) Seg Neutrophils # Lymphocytes # (Manual) Eosinophils # (Manual) PT INR D-Dimer POC ABG pH POC ABG pCO2 POC ABG pO2 ABG pO2 ABG HCO3 ABG Base Excess ABG Hemoglobin Oxyhemoglobin Sodium Potassium Chloride Carbon Dioxide BUN Creatinine Glucose POC Glucose 163 H 166 H 140 H Calcium Phosphorus Magnesium ALT Alkaline Phosphatase Total Creatine Kinase CK-MB (CK-2) Rel Index Troponin T Albumin LDL Cholesterol Direct PTH Intact Salicylates Acetaminophen Crossmatch 04/21/19 04/21/19 04/21/19 12:07 17:22 23:43 WBC RBC Hgb Hct MCV MCH MCHC RDW Lymph % (Auto) [place] % (Auto) Eos % (Auto) Lymph # [place] # Eos # Seg Neutrophils % Seg Neuts % (Manual) Lymphocytes % (Manual) Eosinophils % (Manual) Seg Neutrophils # Lymphocytes # (Manual) Eosinophils # (Manual) PT INR D-Dimer POC ABG pH POC ABG pCO2 POC ABG pO2 ABG pO2 ABG HCO3 ABG Base Excess ABG Hemoglobin Oxyhemoglobin Sodium Potassium Chloride Carbon Dioxide BUN Creatinine Glucose POC Glucose 135 H 141 H 138 H Calcium Phosphorus Magnesium ALT Alkaline Phosphatase Total Creatine Kinase CK-MB (CK-2) Rel Index Troponin T Albumin LDL Cholesterol Direct PTH Intact Salicylates Acetaminophen Crossmatch 04/22/19 04/22/19 04/22/19 05:12 18:24 23:49 WBC RBC Hgb Hct MCV MCH MCHC RDW Lymph % (Auto) [place] % (Auto) Eos % (Auto) Lymph # [place] # Eos # Seg Neutrophils % Seg Neuts % (Manual) Lymphocytes % (Manual) Eosinophils % (Manual) Seg Neutrophils # Lymphocytes # (Manual) Eosinophils # (Manual) PT INR D-Dimer POC ABG pH POC ABG pCO2 POC ABG pO2 ABG pO2 ABG HCO3 ABG Base Excess ABG Hemoglobin Oxyhemoglobin Sodium Potassium Chloride Carbon Dioxide BUN Creatinine Glucose POC Glucose 141 H 137 H 142 H Calcium Phosphorus Magnesium ALT Alkaline Phosphatase Total Creatine Kinase CK-MB (CK-2) Rel Index Troponin T Albumin LDL Cholesterol Direct PTH Intact Salicylates Acetaminophen Crossmatch 04/23/19 04/23/19 04/23/19 05:53 08:13 11:58 WBC RBC Hgb Hct MCV MCH MCHC RDW Lymph % (Auto) [place] % (Auto) Eos % (Auto) Lymph # [place] # Eos # Seg Neutrophils % Seg Neuts % (Manual) Lymphocytes % (Manual) Eosinophils % (Manual) Seg Neutrophils # Lymphocytes # (Manual) Eosinophils # (Manual) PT INR D-Dimer POC ABG pH POC ABG pCO2 POC ABG pO2 ABG pO2 ABG HCO3 ABG Base Excess ABG Hemoglobin Oxyhemoglobin Sodium Potassium Chloride Carbon Dioxide BUN Creatinine Glucose POC Glucose 132 H 154 H 165 H Calcium Phosphorus Magnesium ALT Alkaline Phosphatase Total Creatine Kinase CK-MB (CK-2) Rel Index Troponin T Albumin LDL Cholesterol Direct PTH Intact Salicylates Acetaminophen Crossmatch 04/23/19 04/24/19 04/24/19 16:28 00:28 07:00 WBC RBC Hgb Hct MCV MCH MCHC RDW Lymph % (Auto) [place] % (Auto) Eos % (Auto) Lymph # [place] # Eos # Seg Neutrophils % Seg Neuts % (Manual) Lymphocytes % (Manual) Eosinophils % (Manual) Seg Neutrophils # Lymphocytes # (Manual) Eosinophils # (Manual) PT INR D-Dimer POC ABG pH POC ABG pCO2 POC ABG pO2 ABG pO2 ABG HCO3 ABG Base Excess ABG Hemoglobin Oxyhemoglobin Sodium Potassium Chloride Carbon Dioxide BUN Creatinine Glucose POC Glucose 136 H 140 H 141 H Calcium Phosphorus Magnesium ALT Alkaline Phosphatase Total Creatine Kinase CK-MB (CK-2) Rel Index Troponin T Albumin LDL Cholesterol Direct PTH Intact Salicylates Acetaminophen Crossmatch 04/24/19 04/24/19 04/25/19 12:38 18:57 00:38 WBC RBC Hgb Hct MCV MCH MCHC RDW Lymph % (Auto) [place] % (Auto) Eos % (Auto) Lymph # [place] # Eos # Seg Neutrophils % Seg Neuts % (Manual) Lymphocytes % (Manual) Eosinophils % (Manual) Seg Neutrophils # Lymphocytes # (Manual) Eosinophils # (Manual) PT INR D-Dimer POC ABG pH POC ABG pCO2 POC ABG pO2 ABG pO2 ABG HCO3 ABG Base Excess ABG Hemoglobin Oxyhemoglobin Sodium Potassium Chloride Carbon Dioxide BUN Creatinine Glucose POC Glucose 152 H 166 H 128 H Calcium Phosphorus Magnesium ALT Alkaline Phosphatase Total Creatine Kinase CK-MB (CK-2) Rel Index Troponin T Albumin LDL Cholesterol Direct PTH Intact Salicylates Acetaminophen Crossmatch 04/25/19 04/25/19 04/25/19 05:44 13:43 18:34 WBC RBC Hgb Hct MCV MCH MCHC RDW Lymph % (Auto) [place] % (Auto) Eos % (Auto) Lymph # [place] # Eos # Seg Neutrophils % Seg Neuts % (Manual) Lymphocytes % (Manual) Eosinophils % (Manual) Seg Neutrophils # Lymphocytes # (Manual) Eosinophils # (Manual) PT INR D-Dimer POC ABG pH POC ABG pCO2 POC ABG pO2 ABG pO2 ABG HCO3 ABG Base Excess ABG Hemoglobin Oxyhemoglobin Sodium Potassium Chloride Carbon Dioxide BUN Creatinine Glucose POC Glucose 153 H 186 H 124 H Calcium Phosphorus Magnesium ALT Alkaline Phosphatase Total Creatine Kinase CK-MB (CK-2) Rel Index Troponin T Albumin LDL Cholesterol Direct PTH Intact Salicylates Acetaminophen Crossmatch 04/26/19 04/26/19 04/26/19 00:59 05:52 10:12 WBC 11.5 H RBC 2.84 L Hgb 7.4 L Hct 23.3 L MCV 82 L MCH 26 L MCHC RDW 20.3 H Lymph % (Auto) 7.5 L [place] % (Auto) 7.5 H Eos % (Auto) 5.3 H Lymph # 0.9 L [place] # 0.9 H Eos # 0.6 H Seg Neutrophils % 79.2 H Seg Neuts % (Manual) Lymphocytes % (Manual) Eosinophils % (Manual) Seg Neutrophils # 9.1 H Lymphocytes # (Manual) Eosinophils # (Manual) PT INR D-Dimer POC ABG pH POC ABG pCO2 POC ABG pO2 ABG pO2 ABG HCO3 ABG Base Excess ABG Hemoglobin Oxyhemoglobin Sodium Potassium Chloride Carbon Dioxide BUN Creatinine Glucose POC Glucose 163 H 146 H Calcium Phosphorus Magnesium ALT Alkaline Phosphatase Total Creatine Kinase CK-MB (CK-2) Rel Index Troponin T Albumin LDL Cholesterol Direct PTH Intact Salicylates Acetaminophen Crossmatch 04/26/19 10:12 WBC RBC Hgb Hct MCV MCH MCHC RDW Lymph % (Auto) [place] % (Auto) Eos % (Auto) Lymph # [place] # Eos # Seg Neutrophils % Seg Neuts % (Manual) Lymphocytes % (Manual) Eosinophils % (Manual) Seg Neutrophils # Lymphocytes # (Manual) Eosinophils # (Manual) PT INR D-Dimer POC ABG pH POC ABG pCO2 POC ABG pO2 ABG pO2 ABG HCO3 ABG Base Excess ABG Hemoglobin Oxyhemoglobin Sodium 130 L Potassium Chloride 87.4 L Carbon Dioxide BUN 93 H Creatinine 4.2 H Glucose 140 H POC Glucose Calcium Phosphorus Magnesium ALT Alkaline Phosphatase Total Creatine Kinase CK-MB (CK-2) Rel Index Troponin T Albumin LDL Cholesterol Direct PTH Intact Salicylates Acetaminophen Crossmatch
--- NOTE | 2019-04-26 15:08 | Progress Note ---
Assessment and Plan - Patient Problems (1) ESRD (end stage renal disease) on dialysis Current Visit: Yes Status: Chronic Plan to address problem: End stage renal disease : - access: Left arm AVG Continue hemodialysis Saturday (2) Diabetes mellitus, insulin dependent (IDDM), uncontrolled Current Visit: No Status: Acute Plan to address problem: DM type II uncontrolled Monitor Fingersticks (3) Anemia in chronic kidney disease, on chronic dialysis Current Visit: Yes Status: Acute Plan to address problem: Anemia of chronic kidney disease hemoglobin 9.0g/dl We'll give Epogen Monitor CBC (4) Hypertension Current Visit: Yes Status: Acute Qualifiers: Hypertension type: essential hypertension Qualified Code(s): I10 - Essential (primary) hypertension Plan to address problem: Hypertension controlled currently on Prn antihypertensives. Monitor blood pressure (5) Acute hypoxemic respiratory failure Current Visit: Yes Status: Acute Plan to address problem: Patient has tracheostomy with Tpiece in place. Chest x-ray reviewed with patchy opacities upper lung lynn Cultures obtained with Acinetobacter completed treatment with antibiotics. Ultrafiltration limited by hypotension repeat CXR with improvement in lung aeration. Subjective Principal diagnosis: Respiratory failure, acute on chronic systolic HF, ESRD Interval history: 63 year old Gentleman with medical history significant for ESRD on hemodialysis at [facility] on Saturday, Saturday and Saturday. via a left arm AVG admitted with acute respiratory failure; and hypotension prolonged hospital course received antibiotics for acinetobacter infection and s/p prolonged need for ventilation requiring Tracheostomy with T piece attached. Patient seen today remains on a T piece apparatus no lower extremity edema. Will plan for hD in am. Objective - Vital Signs Vital signs: Vital Signs - 12hr 04/26/19 04/26/19 04/26/19 03:49 03:53 04:36 Temperature 98.6 F Pulse Rate 106 H 110 H Pulse Rate [ Anterior Bilateral Throughout] Respiratory 19 Rate Respiratory Rate [Anterior Bilateral Throughout] Blood Pressure 115/59 O2 Sat by Pulse 94 Oximetry O2 Sat by Pulse Oximetry [ Assessment] 04/26/19 04/26/19 04/26/19 07:57 07:58 08:21 Temperature 98.3 F Pulse Rate 97 H 98 H Pulse Rate [ 102 H Anterior Bilateral Throughout] Respiratory 18 Rate Respiratory 20 Rate [Anterior Bilateral Throughout] Blood Pressure 131/57 O2 Sat by Pulse 98 98 Oximetry O2 Sat by Pulse 98 Oximetry [ Assessment] 04/26/19 04/26/19 12:27 13:23 Temperature 97.1 F L Pulse Rate 96 H Pulse Rate [ 100 H Anterior Bilateral Throughout] Respiratory 18 Rate Respiratory 20 Rate [Anterior Bilateral Throughout] Blood Pressure 124/58 O2 Sat by Pulse 96 Oximetry O2 Sat by Pulse Oximetry [ Assessment] - General Appearance General appearance: well-developed, well-nourished EENT: ATNC, PERRL, mucous membranes moist Neck: no JVD, JVD Respiratory: Present: Clear to Ascultation Cardiology: regular, S1S2 Gastrointestinal: normal, normoactive bowel sounds Integumentary: no rash Neurologic: alert and oriented x3, CN 3-12 intact Musculoskeletal: deferred Psychiatric: mood/affect appropriate - Lab 04/26/19 10:12 04/26/19 10:12 Most recent lab results ABG pH 7.424 pH Units (7.350-7.450) 03/19/19 04:23 ABG pCO2 48.0 mm Hg 03/19/19 04:23 ABG pO2 78.3 mm Hg (80.0-90.0) L 03/19/19 04:23 ABG HCO3 30.7 mmol/L (20.0-26.0) H 03/19/19 04:23 ABG O2 Saturation 97.0 % (95.0-99.0) 03/19/19 04:23 Calcium 10.0 mg/dL (8.4-10.2) 04/26/19 10:12 Phosphorus 4.30 mg/dL (2.5-4.5) D 03/31/19 10:26 Magnesium 2.70 mg/dL (1.7-2.3) H 03/30/19 10:13 - Imaging Chest x-ray: image reviewed (I reviewed CXR with improvement in lung aeration. ) Medications & Allergies - Medications Allergies/Adverse Reactions: Allergies haloperidol [From Haldol] Adverse Reaction (Verified 03/13/18 12:10) Unknown haloperidol lactate [From Haldol] Adverse Reaction (Verified 03/13/18 12:10) Unknown Home Medications: Home Medications Medication Instructions Recorded Confirmed Last Taken Type risperiDONE [RisperDAL] 1 mg PO QAM 03/13/18 02/21/19 Unknown History Sertraline [Zoloft] 100 mg PO QDAY 08/26/18 02/21/19 Unknown History Polyethylene Glycol 3350 [Miralax 17 gm PO QDAY #30 packet 11/05/18 02/21/19 Unknown Rx 3350] Aspirin EC [Halfprin EC] 81 mg PO DAILY #30 11/19/18 02/21/19 Unknown Rx Docusate Sodium [Colace CAP] 100 mg PO BID #60 11/19/18 02/21/19 Unknown Rx Folic Acid [Folvite] 1 mg PO DAILY #30 tab 11/19/18 02/21/19 Unknown Rx Famotidine [Pepcid] 20 mg PO DAILY tablet 12/08/18 02/21/19 Unknown Rx Gabapentin [Neurontin] 100 mg PO QHS capsule 12/08/18 02/21/19 Unknown Rx Metoprolol [Lopressor TAB] 50 mg PO BID 30 Days tablet 12/08/18 02/21/19 Unknown Rx Sevelamer Carbonate [Renvela] 800 mg PO TIDWM tablet 12/08/18 02/21/19 Unknown Rx hydrALAZINE [Apresoline TAB] 100 mg PO Q8HR #120 tablet 12/08/18 02/21/19 Unknown Rx Acetaminophen [Acetaminophen TAB] 650 mg PO Q12H PRN 12/15/18 02/21/19 Unknown History Glucagon,Human Recombinant 1 mg IJ Q15MIN PRN 12/15/18 02/21/19 Unknown History [Glucagon Emergency Kit] Insulin Aspart [NovoLOG 100 See Protocol SQ QWEEK 12/15/18 02/21/19 Unknown History UNITS/ML VIAL] Active Medications: Generic Name Dose Route Start Last Admin Trade Name Freq PRN Reason Stop Dose Admin Albuterol/Ipratropium 1 ampul 02/24/19 20:00 04/26/19 13:23 Duoneb *Not For Prn Use* IH 1 ampul TIDRT SANCHEZ Administration Lipase/Protease/Amylase 1 each 04/10/19 15:16 Pancrejewel Barrientos 10,500 Unit FEEDTUBE PRN PRN For Clogged Feeding Tube Epoetin Solitario 20,000 unit 03/24/19 11:17 04/24/19 15:34 Procrit IV 20,000 unit UMA PRN Administration hemodialysis Famotidine 20 mg 02/23/19 10:00 04/26/19 10:08 Pepcid PO 20 mg DAILY SANCHEZ Administration Sodium Chloride 100 mls @ 999 mls/hr 02/26/19 09:00 Nacl 0.9% IV UMA PRN Hypotension Insulin Human Regular 0 units 02/26/19 12:00 04/26/19 13:02 Humulin R SUB-Q 1 units Q6HR SANCHEZ Administration Protocol Metoprolol Tartrate 2.5 mg 02/28/19 12:06 03/15/19 05:15 Lopressor IV 2.5 mg Q4HR PRN Administration Tachycardia Risperidone 1 mg 02/25/19 13:00 04/26/19 10:08 Risperdal PO 1 mg DAILY SANCHEZ Administration Sertraline HCl 100 mg 02/25/19 13:00 04/26/19 10:08 Zoloft PO 100 mg DAILY SANCHEZ Administration Simple Syrup 15 ml 04/10/19 15:16 Simple Syrup FEEDTUBE PRN PRN Hypoglycemia Simple Syrup 30 ml 04/10/19 15:16 Simple Syrup FEEDTUBE PRN PRN Hypoglycemia Sodium Bicarbonate 325 mg 04/10/19 15:16 Sodium Bicarbonate FEEDTUBE PRN PRN For Clogged Feeding Tube Sodium Hypochlorite 1 applic 04/01/19 13:00 04/26/19 10:09 Dakin's Half Strength TP 1 applicatio BID SANCHEZ Administration
[2019-04-27] MEDS: INSULIN REGULAR, HUMAN 100 UNITS/1 ML SUB-Q SCH ×3 (00:57→14:52)
[2019-04-27] MEDS: IPRATROPIUM/ALBUTEROL SULFATE 3 ML AMPUL.NEB IH SCH ×3 (07:48→21:24)
[2019-04-27] MEDS: SERTRALINE 100 MG TAB PO SCH (09:42)
[2019-04-27] MEDS: FAMOTIDINE 20 MG TAB PO SCH (09:42)
[2019-04-27] MEDS: risperiDONE 1 MG TAB PO SCH (09:42)
[2019-04-27] MEDS ORDERED: SODIUM CHLORIDE*PRIMING MACHINE ONLY FOR DIALYSIS MC ONE ×2 (10:55→17:31)
--- NOTE | 2019-04-27 11:05 | Progress Note ---
Assessment and Plan Assessment and plan: Acute respiratory failure Trach placed on 03/03/19 Trach collar per pulmonary if tolerated. Also PMV attempted yesterday. Pulm following. Aspiration precautions Acute pulmonary edema, resolved Continue with Dialysis Necrotizing Unstagable sacral decubitus ulcer with osteomyelitis Wound care Dilated CMP Cardiomyiopathy EF 35-40% Continue hemodialysis PPM/ICD Acute encephalopathy, probably metabolic or toxic Continues on Mechanical ventilator. ESRD on hemodialysis nephrology following Vascular eval. done re: LUE AV graft, see note Waiting for outpatient hemodialysis arrangements Permanent atrial fibrillation and flutter Not on anticoagulation because of anemia thrombocytopenia Diabetes mellitus type 2 Fingerstick Q4h Schizophrenia continue home meds Legally blind supportive care hypertension- fair Monitor BP Hypokalemia resolved Dysphagia s/p PEG tube Severe malnutrition/hypoalbuminemia with FTT: 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, machine stitcher following PEG placed on 01/02/19 Decubitus ulcer s/p colostomy wound care History of sacral osteomyelitis and LE ulcers Completed Antibiotics Place on contact isolation for ESBL Klebsiella pneumonia on wound culture 01/02/19 Peripheral neuropathy: Continue gabapentin Anemia of chronic disease -s/p total of 8 units PRBC, follow cbc- no occult GI bleed noted. -Pt is s/p x1 DDVAP DVT prophylaxis Lovenox DNR poor prognosis Disposition: Awaiting on placement History Interval history: Patient is 63-year-old -[place] male patient from [facility] with multiple co-morbidities including blindness, CVA, CHF, PPM/ICD, loop recorder since 2012 that is MRI compatible, IDDM type 2, sepsis left foot ulcer, afib, ESRD with complications on HD TTS, hypertension, AOCD and GERD who presented to the ED with hypotensive after intubation in the emergency room. diagnosed with fluid overload, pleural effusion. Patient has had recurrent admission in the hospital for similar reason and was recently discharged from the hospital following treatment of Severe Sepsis due to Necrotizing Unstagable sacral decubitus ulcer with ostemomylitis, has received multiple courses of broad spectrum abx. Acute hypoxic respiratory failure, status post intubation and ventilatory support, now off vent, on T-piece Hospitalist Physical - Constitutional Vitals: Temp Pulse Resp BP Pulse Ox 98.1 F 86 20 95/59 100 04/27/19 09:52 04/27/19 10:45 04/27/19 09:52 04/27/19 10:45 04/27/19 09:52 General appearance: Present: no acute distress, well-nourished, other (T peace) - EENT Eyes: Present: PERRL, EOM intact ENT: hearing intact, clear oral mucosa, dentition normal - Neck Neck: Present: supple, normal ROM - Respiratory Respiratory effort: normal Respiratory: bilateral: CTA - Cardiovascular Rhythm: regular Heart Sounds: Present: S1 & S2. Absent: gallop, rub - Extremities Extremities: no ischemia, No edema, Full ROM - Abdominal General gastrointestinal: soft, non-tender, non-distended, normal bowel sounds - Integumentary Integumentary: Present: clear, warm, dry - Neurologic Neurologic: CNII-XII intact, moves all extremities Results - Labs CBC & Chem 7: 04/26/19 10:12 04/26/19 10:12 Labs: Laboratory Last Values WBC 11.5 K/mm3 (4.5-11.0) H 04/26/19 10:12 RBC 2.84 M/mm3 (3.65-5.03) L 04/26/19 10:12 Hgb 7.4 gm/dl (11.8-15.2) L 04/26/19 10:12 Hct 23.3 % (35.5-45.6) L 04/26/19 10:12 MCV 82 fl (84-94) L 04/26/19 10:12 MCH 26 pg (28-32) L 04/26/19 10:12 MCHC 32 % (32-34) 04/26/19 10:12 RDW 20.3 % (13.2-15.2) H 04/26/19 10:12 Plt Count 350 K/mm3 (140-440) 04/26/19 10:12 Lymph % (Auto) 7.5 % (13.4-35.0) L 04/26/19 10:12 [place] % (Auto) 7.5 % (0.0-7.3) H 04/26/19 10:12 Eos % (Auto) 5.3 % (0.0-4.3) H 04/26/19 10:12 Baso % (Auto) 0.5 % (0.0-1.8) 04/26/19 10:12 Lymph # 0.9 K/mm3 (1.2-5.4) L 04/26/19 10:12 [place] # 0.9 K/mm3 (0.0-0.8) H 04/26/19 10:12 Eos # 0.6 K/mm3 (0.0-0.4) H 04/26/19 10:12 Baso # 0.1 K/mm3 (0.0-0.1) 04/26/19 10:12 Add Manual Diff Complete 03/21/19 06:30 Total Counted 100 03/21/19 06:30 Seg Neutrophils % 79.2 % (40.0-70.0) H 04/26/19 10:12 Seg Neuts % (Manual) 81.0 % (40.0-70.0) H 03/21/19 06:30 Band Neutrophils % 0 % 03/21/19 06:30 Lymphocytes % (Manual) 8.0 % (13.4-35.0) L 03/21/19 06:30 Reactive Lymphs % (Man) 0 % 03/21/19 06:30 Monocytes % (Manual) 1.0 % (0.0-7.3) 03/21/19 06:30 Eosinophils % (Manual) 8.0 % (0.0-4.3) H 03/21/19 06:30 Basophils % (Manual) 1.0 % (0.0-1.8) 03/21/19 06:30 Metamyelocytes % 1.0 % 03/21/19 06:30 Myelocytes % 0 % 03/21/19 06:30 Promyelocytes % 0 % 03/21/19 06:30 Blast Cells % 0 % 03/21/19 06:30 Nucleated RBC % Not Reportable 03/21/19 06:30 Seg Neutrophils # 9.1 K/mm3 (1.8-7.7) H 04/26/19 10:12 Seg Neutrophils # Man 6.7 K/mm3 (1.8-7.7) 03/21/19 06:30 Band Neutrophils # 0.0 K/mm3 03/21/19 06:30 Lymphocytes # (Manual) 0.7 K/mm3 (1.2-5.4) L 03/21/19 06:30 Abs React Lymphs (Man) 0.0 K/mm3 03/21/19 06:30 Monocytes # (Manual) 0.1 K/mm3 (0.0-0.8) 03/21/19 06:30 Eosinophils # (Manual) 0.7 K/mm3 (0.0-0.4) H 03/21/19 06:30 Basophils # (Manual) 0.1 K/mm3 (0.0-0.1) 03/21/19 06:30 Metamyelocytes # 0.1 K/mm3 03/21/19 06:30 Myelocytes # 0.0 K/mm3 03/21/19 06:30 Promyelocytes # 0.0 K/mm3 03/21/19 06:30 Blast Cells # 0.0 K/mm3 03/21/19 06:30 WBC Morphology Not Reportable 03/21/19 06:30 Hypersegmented Neuts Not Reportable 03/21/19 06:30 Hyposegmented Neuts Not Reportable 03/21/19 06:30 Hypogranular Neuts Not Reportable 03/21/19 06:30 Smudge Cells Not Reportable 03/21/19 06:30 Toxic Granulation Not Reportable 03/21/19 06:30 Toxic Vacuolation Not Reportable 03/21/19 06:30 Dohle Bodies Not Reportable 03/21/19 06:30 Pelger-Huet Anomaly Not Reportable 03/21/19 06:30 Tramaine Rods Not Reportable 03/21/19 06:30 Platelet Estimate Consistent w auto 03/21/19 06:30 Clumped Platelets Not Reportable 03/21/19 06:30 Plt Clumps, EDTA Not Reportable 03/21/19 06:30 Large Platelets Not Reportable 03/21/19 06:30 Giant Platelets Not Reportable 03/21/19 06:30 Platelet Satelliting Not Reportable 03/21/19 06:30 Plt Morphology Comment Not Reportable 03/21/19 06:30 RBC Morphology Not Reportable 03/21/19 06:30 Dimorphic RBCs Not Reportable 03/21/19 06:30 Polychromasia Not Reportable 03/21/19 06:30 Hypochromasia Few 03/21/19 06:30 Poikilocytosis Few 03/21/19 06:30 Anisocytosis Few 03/21/19 06:30 Microcytosis Not Reportable 03/21/19 06:30 Macrocytosis Not Reportable 03/21/19 06:30 Spherocytes Not Reportable 03/21/19 06:30 Pappenheimer Bodies Not Reportable 03/21/19 06:30 Sickle Cells Not Reportable 03/21/19 06:30 Target Cells 1+ 03/21/19 06:30 Tear Drop Cells Not Reportable 03/21/19 06:30 Ovalocytes Few 03/21/19 06:30 Helmet Cells Not Reportable 03/21/19 06:30 [place] Bodies Not Reportable 03/21/19 06:30 Deweese Rings Not Reportable 03/21/19 06:30 [place] Cells Not Reportable 03/21/19 06:30 Bite Cells Not Reportable 03/21/19 06:30 Crenated Cell Not Reportable 03/21/19 06:30 Elliptocytes Not Reportable 03/21/19 06:30 Acanthocytes (Spur) Not Reportable 03/21/19 06:30 Rouleaux Not Reportable 03/21/19 06:30 Hemoglobin C Crystals Not Reportable 03/21/19 06:30 Schistocytes Not Reportable 03/21/19 06:30 Malaria parasites Not Reportable 03/21/19 06:30 Jose Juan Bodies Not Reportable 03/21/19 06:30 Hem Pathologist Commnt No 03/21/19 06:30 PT 16.3 Sec. (12.2-14.9) H 03/01/19 09:39 INR 1.35 (0.87-1.13) H 03/01/19 09:39 APTT 33.7 Sec. (24.2-36.6) 02/21/19 18:30 D-Dimer 2987.82 ng/mlDDU (0-234) H 02/22/19 05:54 POC ABG pH 7.510 (7.35-7.45) H 03/18/19 06:38 ABG pH 7.424 pH Units (7.350-7.450) 03/19/19 04:23 POC ABG pCO2 38.9 (35-45) 03/18/19 06:38 ABG pCO2 48.0 mm Hg 03/19/19 04:23 POC ABG pO2 164 (80-105) H 03/18/19 06:38 ABG pO2 78.3 mm Hg (80.0-90.0) L 03/19/19 04:23 POC ABG HCO3 31.0 (22-26 mml/L) 03/18/19 06:38 ABG HCO3 30.7 mmol/L (20.0-26.0) H 03/19/19 04:23 POC ABG Total CO2 32 (23-27mmol/L) 03/18/19 06:38 POC ABG O2 Sat 100 03/18/19 06:38 ABG O2 Saturation 97.0 % (95.0-99.0) 03/19/19 04:23 ABG O2 Content 7.9 (0.0-44) 03/19/19 04:23 POC ABG Base Excess 8 ((-2) - (+3)mmol/L) 03/18/19 06:38 ABG Base Excess 5.8 mmol/L (-2.0-3.0) H 03/19/19 04:23 ABG Hemoglobin 5.8 gm/dl (14.0-18.0) L 03/19/19 04:23 ABG Carboxyhemoglobin 2.0 % (0.0-5.0) 03/19/19 04:23 ABG Methemoglobin 0.4 % (0.0-1.5) 03/19/19 04:23 Oxyhemoglobin 94.6 % (95.0-99.0) L 03/19/19 04:23 FiO2 35 % 03/19/19 04:23 Sodium 130 mmol/L (137-145) L 04/26/19 10:12 Potassium 4.2 mmol/L (3.6-5.0) 04/26/19 10:12 Chloride 87.4 mmol/L (98-107) L 04/26/19 10:12 Carbon Dioxide 28 mmol/L (22-30) 04/26/19 10:12 Anion Gap 19 mmol/L 04/26/19 10:12 BUN 93 mg/dL (9-20) H 04/26/19 10:12 Creatinine 4.2 mg/dL (0.8-1.5) H 04/26/19 10:12 Estimated GFR 17 ml/min 04/26/19 10:12 BUN/Creatinine Ratio 22 % 04/26/19 10:12 Glucose 140 mg/dL (75-100) H 04/26/19 10:12 POC Glucose 140 (70-105) H 04/27/19 06:34 Lactic Acid 1.00 mmol/L (0.7-2.0) 02/21/19 20:58 Calcium 10.0 mg/dL (8.4-10.2) 04/26/19 10:12 Phosphorus 4.30 mg/dL (2.5-4.5) D 03/31/19 10:26 Magnesium 2.70 mg/dL (1.7-2.3) H 03/30/19 10:13 Total Bilirubin 0.20 mg/dL (0.1-1.2) 03/30/19 10:13 AST 16 units/L (5-40) 03/30/19 10:13 ALT 11 units/L (7-56) 03/30/19 10:13 Alkaline Phosphatase 185 units/L (35-129) H 03/30/19 10:13 Ammonia 28.0 umol/L (25-60) 02/21/19 20:04 Total Creatine Kinase 64 units/L (55-170) 02/22/19 03:42 CK-MB (CK-2) 3.7 ng/mL (0.0-4.0) 02/22/19 03:42 CK-MB (CK-2) Rel Index 5.7 (0-4) H 02/22/19 03:42 Troponin T 0.193 ng/mL (0.00-0.029) H* 02/22/19 03:42 Total Protein 6.9 g/dL (6.3-8.2) 03/30/19 10:13 Albumin 2.6 g/dL (3.9-5) L 03/30/19 10:13 Albumin/Globulin Ratio 0.6 % 03/30/19 10:13 Triglycerides 51 mg/dL (2-149) 02/21/19 18:30 Cholesterol 82 mg/dL (50-199) 02/21/19 18:30 LDL Cholesterol Direct 36 mg/dL (50-130) L 02/21/19 18:30 HDL Cholesterol 40 mg/dL (40-59) 02/21/19 18:30 Cholesterol/HDL Ratio 2.05 % 02/21/19 18:30 TSH 2.760 mlU/mL (0.270-4.200) 02/21/19 20:04 PTH Intact 267.6 pg/mL (15-65) H 03/02/19 05:15 Salicylates < 0.3 mg/dL (2.8-20.0) L 02/21/19 20:04 Acetaminophen < 5.0 ug/mL (10.0-30.0) L 02/21/19 20:04 Hepatitis A IgM Ab Non-reactive (NonReactive) 03/31/19 22:56 Hep Bs Antigen Non-reactive (Negative) 03/31/19 22:56 Hep B Core IgM Ab Non-reactive (NonReactive) 03/31/19 22:56 Hepatitis C Antibody Non-reactive (NonReactive) 03/31/19 22:56 Blood Type O POSITIVE 03/22/19 08:48 Antibody Screen Negative 03/22/19 08:48 Crossmatch See Detail 03/22/19 08:48 Active Medications - Current Medications Current Medications: Generic Name Dose Route Start Last Admin Trade Name Freq PRN Reason Stop Dose Admin Albuterol/Ipratropium 1 ampul 02/24/19 20:00 04/27/19 07:48 Duoneb *Not For Prn Use* IH 1 ampul TIDRT SANCHEZ Administration Lipase/Protease/Amylase 1 each 04/10/19 15:16 Pancreaze 10,500 Unit FEEDTUBE PRN PRN For Clogged Feeding Tube Epoetin Solitario 20,000 unit 03/24/19 11:17 04/24/19 15:34 Procrit IV 20,000 unit UMA PRN Administration hemodialysis Famotidine 20 mg 02/23/19 10:00 04/27/19 09:42 Pepcid PO Not Given DAILY [facility] Insulin Human Regular 0 units 02/26/19 12:00 04/27/19 06:38 Humulin R SUB-Q Not Given Q6HR [facility] Protocol Metoprolol Tartrate 2.5 mg 02/28/19 12:06 03/15/19 05:15 Lopressor IV 2.5 mg Q4HR PRN Administration Tachycardia Risperidone 1 mg 02/25/19 13:00 04/27/19 09:42 Risperdal PO Not Given DAILY [facility] Sertraline HCl 100 mg 02/25/19 13:00 04/27/19 09:42 Zoloft PO Not Given DAILY SANCHEZ Simple Syrup 15 ml 04/10/19 15:16 Simple Syrup FEEDTUBE PRN PRN Hypoglycemia Simple Syrup 30 ml 04/10/19 15:16 Simple Syrup FEEDTUBE PRN PRN Hypoglycemia Sodium Bicarbonate 325 mg 04/10/19 15:16 Sodium Bicarbonate FEEDTUBE PRN PRN For Clogged Feeding Tube Sodium Hypochlorite 1 applic 04/01/19 13:00 04/26/19 21:24 Dakin's Half Strength TP 1 applicatio BID SANCHEZ Administration Nutrition/Malnutrition Assess - Dietary Evaluation Nutrition/Malnutrition Findings: Nutrition Notes Start: 02/22/19 12:51 Freq: Status: Active Protocol: Document 04/24/19 11:11 PS (Rec: 04/24/19 12:23 PS [id number]) Co-Sign 04/24/19 11:11 LP Nutrition Notes Initial or Follow up Reassessment Current Diagnosis Diabetes,Hypertension Other Pertinent Diagnosis Sacral PU, ESRD on HD (T/Thurs /Sat), Schizophrenia,Blind in L eye,S/P trach Current Diet Nepro at 50 ml/hr w/Abhilash BID Labs/Tests POC Glu 141 Pertinent Medications Reviewed Height 5 ft 10 in Weight 65.7 kg [place] Body Weight (kg) 75.45 BMI 20.7 Weight change and time frame wt. change noted. Subjective/Other Information Observed Nepro infusing at 50 ml/hr. RN had Abhilash and was going to give it to him BID. Percent of energy/protein needs met: 100%/100% Burn Absent Trauma Absent Minimum of two criteria No #2 Nutrition Diagnosis Increased nutrient needs ( specify in comment below) Diagnosis Progress(for reassessment Continues documentation) #1 Nutrition Diagnosis Inadequate oral intake Diagnosis Progress(for reassessment Continues documentation) Is patient on ventilator? No Is Patient Ambulatory and/or Out of Bed No REE-([facility]-confined to bed) 1749.252 Kcal/Kg value to use for calculation 35 Approximate Energy Requirements Using 2300 kcal/Kg Calculation Used for Recommendations Kcal/kg Additional Notes Protein Needs: 79 - 98 g (1.2- 1.5 g/kg) Fluid Needs: 1-1.5 L/day Nutrition Intervention Change Diet Order: Continue TF Nutrition Support: Nepro with Carbsteady 1.8 at 50 ml/hr Flush 200 ml q4hr Kcal 2,160 Protein (gm) 97 Fluid (mL) 872 Add Supplement/Snack (indicate name/kcal Abhilash BID /protein ) Provides kCal: 190 Provides Protein (gm) 5 Goal #1 TF tolerance Goal #2 Continue to meet at least 75% of calorie and protein needs via TF Anticipated Discharge Needs: TF Follow-Up By: 05/01/19 Additional Comments Follow for TF/ONS tolerance
--- NOTE | 2019-04-27 11:19 | Progress Note ---
Assessment and Plan 63 y/o male with multiple medical issues admitted with altered mental status, acute respiratory failure requiring mechanical ventilation 1. Daily PMV trials. Hopefully will lead to capping and nasal cannula at some point. then could consider decannulation. 2. HD per renal 3. PT/OT if possible 4. CM working on placement Subjective Date of service: 04/27/19 Principal diagnosis: Respiratory failure, acute on chronic systolic HF, ESRD Interval history: No acute events. Pulm status is stable. Objective Vital Signs - 12hr 04/26/19 04/26/19 04/27/19 23:20 23:40 03:42 Temperature 98.5 F 98.6 F Pulse Rate 103 H 101 H Pulse Rate [ Posterior Bilateral Throughout] Respiratory 19 18 Rate Respiratory Rate [Posterior Bilateral Throughout] Blood Pressure 113/65 127/62 O2 Sat by Pulse 100 100 Oximetry O2 Sat by Pulse Oximetry [ Anterior Bilateral Throughout] O2 Sat by Pulse 100 Oximetry [ Assessment] 04/27/19 04/27/19 04/27/19 03:49 07:31 07:48 Temperature 98.6 F Pulse Rate 96 H 91 H Pulse Rate [ 84 Posterior Bilateral Throughout] Respiratory 18 Rate Respiratory 18 Rate [Posterior Bilateral Throughout] Blood Pressure 121/58 O2 Sat by Pulse 98 Oximetry O2 Sat by Pulse Oximetry [ Anterior Bilateral Throughout] O2 Sat by Pulse Oximetry [ Assessment] 04/27/19 04/27/19 04/27/19 07:49 09:52 10:00 Temperature 98.1 F Pulse Rate 86 88 Pulse Rate [ Posterior Bilateral Throughout] Respiratory 20 Rate Respiratory Rate [Posterior Bilateral Throughout] Blood Pressure 103/59 115/59 O2 Sat by Pulse 95 Oximetry O2 Sat by Pulse 100 Oximetry [ Anterior Bilateral Throughout] O2 Sat by Pulse 96 Oximetry [ Assessment] 04/27/19 04/27/19 04/27/19 10:15 10:30 10:45 Temperature Pulse Rate 84 83 86 Pulse Rate [ Posterior Bilateral Throughout] Respiratory Rate Respiratory Rate [Posterior Bilateral Throughout] Blood Pressure 102/57 105/59 95/59 O2 Sat by Pulse Oximetry O2 Sat by Pulse Oximetry [ Anterior Bilateral Throughout] O2 Sat by Pulse Oximetry [ Assessment] Constitutional: no acute distress, alert Eyes: non-icteric ENT: oropharynx moist Neck: supple Effort: normal Ascultation: Bilateral: diminished breath sounds, other (coarse BS bilaterally) Percussion: Bilateral: not dull Cardiovascular: regular rate and rhythm (no mrg) Gastrointestinal: normoactive bowel sounds, soft, non-tender, non-distended, other (ostomy in place, brown stool) Extremities: no cyanosis, no edema, pink and warm Neurologic: other (mild weakness LUE, o/w nonfocal) Psychiatric: other (unable to assess) CBC and BMP: 04/26/19 10:12 04/26/19 10:12 ABG, PT/INR, D-dimer: ABG POC ABG pH 7.510 (7.35-7.45) H 03/18/19 06:38 ABG pH 7.424 pH Units (7.350-7.450) 03/19/19 04:23 POC ABG pCO2 38.9 (35-45) 03/18/19 06:38 ABG pCO2 48.0 mm Hg 03/19/19 04:23 POC ABG pO2 164 (80-105) H 03/18/19 06:38 ABG pO2 78.3 mm Hg (80.0-90.0) L 03/19/19 04:23 POC ABG HCO3 31.0 (22-26 mml/L) 03/18/19 06:38 POC ABG Total CO2 32 (23-27mmol/L) 03/18/19 06:38 POC ABG O2 Sat 100 03/18/19 06:38 ABG O2 Saturation 97.0 % (95.0-99.0) 03/19/19 04:23 PT/INR, D-dimer PT 16.3 Sec. (12.2-14.9) H 03/01/19 09:39 INR 1.35 (0.87-1.13) H 03/01/19 09:39 D-Dimer 2987.82 ng/mlDDU (0-234) H 02/22/19 05:54 Abnormal lab findings: Abnormal Labs 02/21/19 02/21/19 02/21/19 18:30 18:30 18:30 WBC RBC 3.26 L Hgb 8.8 L Hct 29.0 L MCV MCH 27 L MCHC 30 L RDW 19.1 H Lymph % (Auto) 6.1 L [place] % (Auto) Eos % (Auto) Lymph # 0.4 L [place] # Eos # Seg Neutrophils % 86.2 H Seg Neuts % (Manual) Lymphocytes % (Manual) Eosinophils % (Manual) Seg Neutrophils # Lymphocytes # (Manual) Eosinophils # (Manual) PT INR D-Dimer POC ABG pH POC ABG pCO2 POC ABG pO2 ABG pO2 ABG HCO3 ABG Base Excess ABG Hemoglobin Oxyhemoglobin Sodium 133 L Potassium 3.3 L Chloride 93.1 L Carbon Dioxide 33 H BUN Creatinine Glucose 161 H POC Glucose Calcium Phosphorus Magnesium ALT Alkaline Phosphatase 136 H Total Creatine Kinase 37 L CK-MB (CK-2) Rel Index Troponin T 0.192 H* Albumin 2.4 L LDL Cholesterol Direct 36 L PTH Intact Salicylates Acetaminophen Crossmatch 02/21/19 02/21/19 02/21/19 18:42 20:04 20:04 WBC RBC Hgb Hct MCV MCH MCHC RDW Lymph % (Auto) [place] % (Auto) Eos % (Auto) Lymph # [place] # Eos # Seg Neutrophils % Seg Neuts % (Manual) Lymphocytes % (Manual) Eosinophils % (Manual) Seg Neutrophils # Lymphocytes # (Manual) Eosinophils # (Manual) PT INR D-Dimer POC ABG pH POC ABG pCO2 56.7 H POC ABG pO2 291 H ABG pO2 ABG HCO3 ABG Base Excess ABG Hemoglobin Oxyhemoglobin Sodium Potassium Chloride Carbon Dioxide BUN Creatinine Glucose POC Glucose Calcium Phosphorus Magnesium ALT Alkaline Phosphatase Total Creatine Kinase CK-MB (CK-2) Rel Index Troponin T Albumin LDL Cholesterol Direct PTH Intact Salicylates < 0.3 L Acetaminophen < 5.0 L Crossmatch 02/21/19 02/22/19 02/22/19 22:35 03:42 03:42 WBC RBC 3.20 L Hgb 8.8 L Hct 27.6 L MCV MCH MCHC RDW 18.9 H Lymph % (Auto) 7.4 L [place] % (Auto) Eos % (Auto) Lymph # 0.7 L [place] # Eos # Seg Neutrophils % 84.7 H Seg Neuts % (Manual) Lymphocytes % (Manual) Eosinophils % (Manual) Seg Neutrophils # Lymphocytes # (Manual) Eosinophils # (Manual) PT INR D-Dimer POC ABG pH POC ABG pCO2 POC ABG pO2 ABG pO2 ABG HCO3 ABG Base Excess ABG Hemoglobin Oxyhemoglobin Sodium 134 L Potassium 2.6 L* D Chloride Carbon Dioxide BUN Creatinine Glucose POC Glucose Calcium Phosphorus Magnesium ALT Alkaline Phosphatase Total Creatine Kinase CK-MB (CK-2) Rel Index 5.2 H Troponin T 0.202 H* Albumin LDL Cholesterol Direct PTH Intact Salicylates Acetaminophen Crossmatch 02/22/19 02/22/19 02/22/19 03:42 05:54 09:04 WBC RBC Hgb Hct MCV MCH MCHC RDW Lymph % (Auto) [place] % (Auto) Eos % (Auto) Lymph # [place] # Eos # Seg Neutrophils % Seg Neuts % (Manual) Lymphocytes % (Manual) Eosinophils % (Manual) Seg Neutrophils # Lymphocytes # (Manual) Eosinophils # (Manual) PT INR D-Dimer 2987.82 H POC ABG pH 7.451 H POC ABG pCO2 POC ABG pO2 ABG pO2 ABG HCO3 ABG Base Excess ABG Hemoglobin Oxyhemoglobin Sodium Potassium Chloride Carbon Dioxide BUN Creatinine Glucose POC Glucose Calcium Phosphorus Magnesium ALT Alkaline Phosphatase Total Creatine Kinase CK-MB (CK-2) Rel Index 5.7 H Troponin T 0.193 H* Albumin LDL Cholesterol Direct PTH Intact Salicylates Acetaminophen Crossmatch 02/22/19 02/22/19 02/23/19 10:36 23:56 00:52 WBC RBC Hgb Hct MCV MCH MCHC RDW Lymph % (Auto) [place] % (Auto) Eos % (Auto) Lymph # [place] # Eos # Seg Neutrophils % Seg Neuts % (Manual) Lymphocytes % (Manual) Eosinophils % (Manual) Seg Neutrophils # Lymphocytes # (Manual) Eosinophils # (Manual) PT INR D-Dimer POC ABG pH POC ABG pCO2 POC ABG pO2 ABG pO2 ABG HCO3 ABG Base Excess ABG Hemoglobin Oxyhemoglobin Sodium Potassium 3.1 L Chloride Carbon Dioxide BUN Creatinine Glucose POC Glucose 58 L 111 H Calcium Phosphorus Magnesium ALT Alkaline Phosphatase Total Creatine Kinase CK-MB (CK-2) Rel Index Troponin T Albumin LDL Cholesterol Direct PTH Intact Salicylates Acetaminophen Crossmatch 02/23/19 02/23/19 02/23/19 05:00 06:35 14:26 WBC RBC Hgb Hct MCV MCH MCHC RDW Lymph % (Auto) [place] % (Auto) Eos % (Auto) Lymph # [place] # Eos # Seg Neutrophils % Seg Neuts % (Manual) Lymphocytes % (Manual) Eosinophils % (Manual) Seg Neutrophils # Lymphocytes # (Manual) Eosinophils # (Manual) PT INR D-Dimer POC ABG pH POC ABG pCO2 POC ABG pO2 ABG pO2 ABG HCO3 ABG Base Excess ABG Hemoglobin Oxyhemoglobin Sodium 135 L Potassium 3.1 L Chloride Carbon Dioxide BUN 21 H Creatinine 2.0 H Glucose 57 L POC Glucose 64 L 62 L Calcium Phosphorus Magnesium ALT Alkaline Phosphatase Total Creatine Kinase CK-MB (CK-2) Rel Index Troponin T Albumin LDL Cholesterol Direct PTH Intact Salicylates Acetaminophen Crossmatch 02/24/19 02/24/19 02/24/19 02:11 04:12 04:55 WBC RBC 2.84 L Hgb 7.8 L Hct 24.5 L MCV MCH MCHC RDW 19.5 H Lymph % (Auto) [place] % (Auto) Eos % (Auto) Lymph # [place] # Eos # Seg Neutrophils % Seg Neuts % (Manual) Lymphocytes % (Manual) Eosinophils % (Manual) Seg Neutrophils # Lymphocytes # (Manual) Eosinophils # (Manual) PT INR D-Dimer POC ABG pH 7.511 H POC ABG pCO2 33.9 L POC ABG pO2 62 L ABG pO2 ABG HCO3 ABG Base Excess ABG Hemoglobin Oxyhemoglobin Sodium Potassium Chloride Carbon Dioxide BUN Creatinine Glucose POC Glucose 69 L Calcium Phosphorus Magnesium ALT Alkaline Phosphatase Total Creatine Kinase CK-MB (CK-2) Rel Index Troponin T Albumin LDL Cholesterol Direct PTH Intact Salicylates Acetaminophen Crossmatch 02/24/19 02/24/19 02/25/19 04:55 05:41 04:45 WBC RBC Hgb Hct MCV MCH MCHC RDW Lymph % (Auto) [place] % (Auto) Eos % (Auto) Lymph # [place] # Eos # Seg Neutrophils % Seg Neuts % (Manual) Lymphocytes % (Manual) Eosinophils % (Manual) Seg Neutrophils # Lymphocytes # (Manual) Eosinophils # (Manual) PT INR D-Dimer POC ABG pH 7.466 H POC ABG pCO2 POC ABG pO2 75 L ABG pO2 ABG HCO3 ABG Base Excess ABG Hemoglobin Oxyhemoglobin Sodium Potassium Chloride Carbon Dioxide BUN Creatinine 1.8 H Glucose 73 L POC Glucose 127 H Calcium Phosphorus Magnesium ALT Alkaline Phosphatase Total Creatine Kinase CK-MB (CK-2) Rel Index Troponin T Albumin LDL Cholesterol Direct PTH Intact Salicylates Acetaminophen Crossmatch 02/25/19 02/25/19 02/26/19 16:34 21:33 03:45 WBC RBC 2.96 L Hgb 8.0 L Hct 25.8 L MCV MCH 27 L MCHC 31 L RDW 20.0 H Lymph % (Auto) [place] % (Auto) Eos % (Auto) Lymph # [place] # Eos # Seg Neutrophils % Seg Neuts % (Manual) Lymphocytes % (Manual) Eosinophils % (Manual) Seg Neutrophils # Lymphocytes # (Manual) Eosinophils # (Manual) PT INR D-Dimer POC ABG pH POC ABG pCO2 POC ABG pO2 ABG pO2 ABG HCO3 ABG Base Excess ABG Hemoglobin Oxyhemoglobin Sodium Potassium Chloride Carbon Dioxide BUN Creatinine Glucose POC Glucose 141 H 106 H Calcium Phosphorus Magnesium ALT Alkaline Phosphatase Total Creatine Kinase CK-MB (CK-2) Rel Index Troponin T Albumin LDL Cholesterol Direct PTH Intact Salicylates Acetaminophen Crossmatch 02/26/19 02/26/19 02/26/19 03:45 04:13 07:53 WBC RBC Hgb Hct MCV MCH MCHC RDW Lymph % (Auto) [place] % (Auto) Eos % (Auto) Lymph # [place] # Eos # Seg Neutrophils % Seg Neuts % (Manual) Lymphocytes % (Manual) Eosinophils % (Manual) Seg Neutrophils # Lymphocytes # (Manual) Eosinophils # (Manual) PT INR D-Dimer POC ABG pH 7.470 H POC ABG pCO2 POC ABG pO2 ABG pO2 ABG HCO3 ABG Base Excess ABG Hemoglobin Oxyhemoglobin Sodium Potassium Chloride Carbon Dioxide BUN Creatinine 1.8 H Glucose POC Glucose 110 H Calcium Phosphorus Magnesium ALT Alkaline Phosphatase Total Creatine Kinase CK-MB (CK-2) Rel Index Troponin T Albumin LDL Cholesterol Direct PTH Intact Salicylates Acetaminophen Crossmatch 02/26/19 02/26/19 02/27/19 11:56 17:43 00:12 WBC RBC Hgb Hct MCV MCH MCHC RDW Lymph % (Auto) [place] % (Auto) Eos % (Auto) Lymph # [place] # Eos # Seg Neutrophils % Seg Neuts % (Manual) Lymphocytes % (Manual) Eosinophils % (Manual) Seg Neutrophils # Lymphocytes # (Manual) Eosinophils # (Manual) PT INR D-Dimer POC ABG pH POC ABG pCO2 POC ABG pO2 ABG pO2 ABG HCO3 ABG Base Excess ABG Hemoglobin Oxyhemoglobin Sodium Potassium Chloride Carbon Dioxide BUN Creatinine Glucose POC Glucose 112 H 127 H 127 H Calcium Phosphorus Magnesium ALT Alkaline Phosphatase Total Creatine Kinase CK-MB (CK-2) Rel Index Troponin T Albumin LDL Cholesterol Direct PTH Intact Salicylates Acetaminophen Crossmatch 02/27/19 02/27/19 02/27/19 04:35 13:15 18:02 WBC RBC Hgb Hct MCV MCH MCHC RDW Lymph % (Auto) [place] % (Auto) Eos % (Auto) Lymph # [place] # Eos # Seg Neutrophils % Seg Neuts % (Manual) Lymphocytes % (Manual) Eosinophils % (Manual) Seg Neutrophils # Lymphocytes # (Manual) Eosinophils # (Manual) PT INR D-Dimer POC ABG pH 7.483 H POC ABG pCO2 POC ABG pO2 61 L ABG pO2 ABG HCO3 ABG Base Excess ABG Hemoglobin Oxyhemoglobin Sodium Potassium Chloride Carbon Dioxide BUN Creatinine Glucose POC Glucose 143 H 106 H Calcium Phosphorus Magnesium ALT Alkaline Phosphatase Total Creatine Kinase CK-MB (CK-2) Rel Index Troponin T Albumin LDL Cholesterol Direct PTH Intact Salicylates Acetaminophen Crossmatch 02/28/19 02/28/19 02/28/19 05:50 11:59 17:52 WBC RBC Hgb Hct MCV MCH MCHC RDW Lymph % (Auto) [place] % (Auto) Eos % (Auto) Lymph # [place] # Eos # Seg Neutrophils % Seg Neuts % (Manual) Lymphocytes % (Manual) Eosinophils % (Manual) Seg Neutrophils # Lymphocytes # (Manual) Eosinophils # (Manual) PT INR D-Dimer POC ABG pH POC ABG pCO2 POC ABG pO2 ABG pO2 ABG HCO3 ABG Base Excess ABG Hemoglobin Oxyhemoglobin Sodium Potassium Chloride Carbon Dioxide BUN Creatinine Glucose POC Glucose 134 H 128 H 142 H Calcium Phosphorus Magnesium ALT Alkaline Phosphatase Total Creatine Kinase CK-MB (CK-2) Rel Index Troponin T Albumin LDL Cholesterol Direct PTH Intact Salicylates Acetaminophen Crossmatch 02/28/19 03/01/19 03/01/19 23:13 05:40 09:39 WBC RBC Hgb Hct MCV MCH MCHC RDW Lymph % (Auto) [place] % (Auto) Eos % (Auto) Lymph # [place] # Eos # Seg Neutrophils % Seg Neuts % (Manual) Lymphocytes % (Manual) Eosinophils % (Manual) Seg Neutrophils # Lymphocytes # (Manual) Eosinophils # (Manual) PT 16.3 H INR 1.35 H D-Dimer POC ABG pH POC ABG pCO2 POC ABG pO2 ABG pO2 ABG HCO3 ABG Base Excess ABG Hemoglobin Oxyhemoglobin Sodium Potassium Chloride Carbon Dioxide BUN Creatinine Glucose POC Glucose 112 H 111 H Calcium Phosphorus Magnesium ALT Alkaline Phosphatase Total Creatine Kinase CK-MB (CK-2) Rel Index Troponin T Albumin LDL Cholesterol Direct PTH Intact Salicylates Acetaminophen Crossmatch 03/01/19 03/01/19 03/01/19 11:56 13:54 17:59 WBC RBC Hgb Hct MCV MCH MCHC RDW Lymph % (Auto) [place] % (Auto) Eos % (Auto) Lymph # [place] # Eos # Seg Neutrophils % Seg Neuts % (Manual) Lymphocytes % (Manual) Eosinophils % (Manual) Seg Neutrophils # Lymphocytes # (Manual) Eosinophils # (Manual) PT INR D-Dimer POC ABG pH POC ABG pCO2 POC ABG pO2 ABG pO2 ABG HCO3 ABG Base Excess ABG Hemoglobin Oxyhemoglobin Sodium Potassium Chloride Carbon Dioxide BUN 33 H Creatinine 2.8 H D Glucose 176 H POC Glucose 199 H 147 H Calcium Phosphorus Magnesium ALT Alkaline Phosphatase Total Creatine Kinase CK-MB (CK-2) Rel Index Troponin T Albumin LDL Cholesterol Direct PTH Intact Salicylates Acetaminophen Crossmatch 03/02/19 03/02/19 03/02/19 05:15 05:15 05:15 WBC RBC 2.73 L Hgb 7.4 L Hct 23.0 L MCV MCH 27 L MCHC RDW 19.9 H Lymph % (Auto) [place] % (Auto) 7.9 H Eos % (Auto) 7.6 H Lymph # 1.0 L [place] # Eos # 0.5 H Seg Neutrophils % Seg Neuts % (Manual) Lymphocytes % (Manual) Eosinophils % (Manual) Seg Neutrophils # Lymphocytes # (Manual) Eosinophils # (Manual) PT INR D-Dimer POC ABG pH POC ABG pCO2 POC ABG pO2 ABG pO2 ABG HCO3 ABG Base Excess ABG Hemoglobin Oxyhemoglobin Sodium Potassium Chloride Carbon Dioxide BUN 43 H Creatinine 3.2 H Glucose POC Glucose Calcium Phosphorus 2.30 L Magnesium ALT Alkaline Phosphatase Total Creatine Kinase CK-MB (CK-2) Rel Index Troponin T Albumin LDL Cholesterol Direct PTH Intact 267.6 H Salicylates Acetaminophen Crossmatch 03/02/19 03/02/19 03/03/19 12:32 18:20 13:30 WBC RBC Hgb Hct MCV MCH MCHC RDW Lymph % (Auto) [place] % (Auto) Eos % (Auto) Lymph # [place] # Eos # Seg Neutrophils % Seg Neuts % (Manual) Lymphocytes % (Manual) Eosinophils % (Manual) Seg Neutrophils # Lymphocytes # (Manual) Eosinophils # (Manual) PT INR D-Dimer POC ABG pH POC ABG pCO2 POC ABG pO2 ABG pO2 ABG HCO3 ABG Base Excess ABG Hemoglobin Oxyhemoglobin Sodium Potassium Chloride 97.3 L Carbon Dioxide BUN 26 H Creatinine 2.2 H Glucose 73 L POC Glucose 111 H 156 H Calcium Phosphorus Magnesium ALT Alkaline Phosphatase Total Creatine Kinase CK-MB (CK-2) Rel Index Troponin T Albumin LDL Cholesterol Direct PTH Intact Salicylates Acetaminophen Crossmatch 03/04/19 03/04/19 03/04/19 00:02 05:37 05:40 WBC RBC 2.63 L Hgb 7.2 L Hct 22.2 L MCV MCH MCHC RDW 20.2 H Lymph % (Auto) 10.5 L [place] % (Auto) Eos % (Auto) 4.6 H Lymph # 0.7 L [place] # Eos # Seg Neutrophils % 76.9 H Seg Neuts % (Manual) Lymphocytes % (Manual) Eosinophils % (Manual) Seg Neutrophils # Lymphocytes # (Manual) Eosinophils # (Manual) PT INR D-Dimer POC ABG pH POC ABG pCO2 POC ABG pO2 ABG pO2 ABG HCO3 ABG Base Excess ABG Hemoglobin Oxyhemoglobin Sodium Potassium Chloride Carbon Dioxide BUN Creatinine Glucose POC Glucose 136 H 123 H Calcium Phosphorus Magnesium ALT Alkaline Phosphatase Total Creatine Kinase CK-MB (CK-2) Rel Index Troponin T Albumin LDL Cholesterol Direct PTH Intact Salicylates Acetaminophen Crossmatch 03/04/19 03/04/19 03/04/19 05:40 11:39 23:20 WBC RBC Hgb Hct MCV MCH MCHC RDW Lymph % (Auto) [place] % (Auto) Eos % (Auto) Lymph # [place] # Eos # Seg Neutrophils % Seg Neuts % (Manual) Lymphocytes % (Manual) Eosinophils % (Manual) Seg Neutrophils # Lymphocytes # (Manual) Eosinophils # (Manual) PT INR D-Dimer POC ABG pH POC ABG pCO2 POC ABG pO2 ABG pO2 ABG HCO3 ABG Base Excess ABG Hemoglobin Oxyhemoglobin Sodium Potassium Chloride Carbon Dioxide BUN 34 H Creatinine 2.7 H Glucose 114 H POC Glucose 175 H 151 H Calcium Phosphorus Magnesium ALT Alkaline Phosphatase Total Creatine Kinase CK-MB (CK-2) Rel Index Troponin T Albumin LDL Cholesterol Direct PTH Intact Salicylates Acetaminophen Crossmatch 03/05/19 03/05/19 03/05/19 05:37 12:08 17:11 WBC RBC Hgb Hct MCV MCH MCHC RDW Lymph % (Auto) [place] % (Auto) Eos % (Auto) Lymph # [place] # Eos # Seg Neutrophils % Seg Neuts % (Manual) Lymphocytes % (Manual) Eosinophils % (Manual) Seg Neutrophils # Lymphocytes # (Manual) Eosinophils # (Manual) PT INR D-Dimer POC ABG pH POC ABG pCO2 POC ABG pO2 ABG pO2 ABG HCO3 ABG Base Excess ABG Hemoglobin Oxyhemoglobin Sodium Potassium Chloride Carbon Dioxide BUN Creatinine Glucose POC Glucose 134 H 135 H 135 H Calcium Phosphorus Magnesium ALT Alkaline Phosphatase Total Creatine Kinase CK-MB (CK-2) Rel Index Troponin T Albumin LDL Cholesterol Direct PTH Intact Salicylates Acetaminophen Crossmatch 03/06/19 03/06/19 03/06/19 00:16 13:05 18:09 WBC RBC Hgb Hct MCV MCH MCHC RDW Lymph % (Auto) [place] % (Auto) Eos % (Auto) Lymph # [place] # Eos # Seg Neutrophils % Seg Neuts % (Manual) Lymphocytes % (Manual) Eosinophils % (Manual) Seg Neutrophils # Lymphocytes # (Manual) Eosinophils # (Manual) PT INR D-Dimer POC ABG pH POC ABG pCO2 POC ABG pO2 ABG pO2 ABG HCO3 ABG Base Excess ABG Hemoglobin Oxyhemoglobin Sodium Potassium Chloride Carbon Dioxide BUN Creatinine Glucose POC Glucose 117 H 113 H 131 H Calcium Phosphorus Magnesium ALT Alkaline Phosphatase Total Creatine Kinase CK-MB (CK-2) Rel Index Troponin T Albumin LDL Cholesterol Direct PTH Intact Salicylates Acetaminophen Crossmatch 03/07/19 03/08/19 03/08/19 05:25 05:33 16:00 WBC RBC 2.44 L Hgb 6.6 L Hct 20.8 L MCV MCH 27 L MCHC RDW 19.2 H Lymph % (Auto) [place] % (Auto) Eos % (Auto) 8.6 H Lymph # 0.8 L [place] # Eos # 0.5 H Seg Neutrophils % 70.7 H Seg Neuts % (Manual) Lymphocytes % (Manual) Eosinophils % (Manual) Seg Neutrophils # Lymphocytes # (Manual) Eosinophils # (Manual) PT INR D-Dimer POC ABG pH POC ABG pCO2 POC ABG pO2 ABG pO2 ABG HCO3 ABG Base Excess ABG Hemoglobin Oxyhemoglobin Sodium Potassium Chloride Carbon Dioxide BUN Creatinine Glucose POC Glucose 106 H 108 H Calcium Phosphorus Magnesium ALT Alkaline Phosphatase Total Creatine Kinase CK-MB (CK-2) Rel Index Troponin T Albumin LDL Cholesterol Direct PTH Intact Salicylates Acetaminophen Crossmatch 03/08/19 03/08/19 03/08/19 16:00 18:38 Unknown WBC RBC Hgb Hct MCV MCH MCHC RDW Lymph % (Auto) [place] % (Auto) Eos % (Auto) Lymph # [place] # Eos # Seg Neutrophils % Seg Neuts % (Manual) Lymphocytes % (Manual) Eosinophils % (Manual) Seg Neutrophils # Lymphocytes # (Manual) Eosinophils # (Manual) PT INR D-Dimer POC ABG pH POC ABG pCO2 POC ABG pO2 ABG pO2 ABG HCO3 ABG Base Excess ABG Hemoglobin Oxyhemoglobin Sodium Potassium 5.4 H D Chloride Carbon Dioxide BUN 47 H Creatinine 2.6 H Glucose POC Glucose 123 H Calcium Phosphorus Magnesium ALT < 5 L Alkaline Phosphatase Total Creatine Kinase CK-MB (CK-2) Rel Index Troponin T Albumin 2.2 L LDL Cholesterol Direct PTH Intact Salicylates Acetaminophen Crossmatch See Detail 03/09/19 03/09/19 03/09/19 10:48 12:28 13:53 WBC RBC 2.85 L Hgb 7.7 L Hct 24.2 L MCV MCH 27 L MCHC RDW 18.7 H Lymph % (Auto) [place] % (Auto) Eos % (Auto) Lymph # [place] # Eos # Seg Neutrophils % Seg Neuts % (Manual) Lymphocytes % (Manual) Eosinophils % (Manual) Seg Neutrophils # Lymphocytes # (Manual) Eosinophils # (Manual) PT INR D-Dimer POC ABG pH POC ABG pCO2 POC ABG pO2 ABG pO2 ABG HCO3 30.5 H ABG Base Excess 5.6 H ABG Hemoglobin 8.1 L Oxyhemoglobin 93.8 L Sodium Potassium Chloride Carbon Dioxide BUN Creatinine Glucose POC Glucose 114 H Calcium Phosphorus Magnesium ALT Alkaline Phosphatase Total Creatine Kinase CK-MB (CK-2) Rel Index Troponin T Albumin LDL Cholesterol Direct PTH Intact Salicylates Acetaminophen Crossmatch 03/09/19 03/09/19 03/10/19 17:58 23:53 12:01 WBC RBC Hgb Hct MCV MCH MCHC RDW Lymph % (Auto) [place] % (Auto) Eos % (Auto) Lymph # [place] # Eos # Seg Neutrophils % Seg Neuts % (Manual) Lymphocytes % (Manual) Eosinophils % (Manual) Seg Neutrophils # Lymphocytes # (Manual) Eosinophils # (Manual) PT INR D-Dimer POC ABG pH POC ABG pCO2 POC ABG pO2 ABG pO2 ABG HCO3 ABG Base Excess ABG Hemoglobin Oxyhemoglobin Sodium Potassium Chloride Carbon Dioxide BUN Creatinine Glucose POC Glucose 108 H 128 H 144 H Calcium Phosphorus Magnesium ALT Alkaline Phosphatase Total Creatine Kinase CK-MB (CK-2) Rel Index Troponin T Albumin LDL Cholesterol Direct PTH Intact Salicylates Acetaminophen Crossmatch 03/10/19 03/11/19 03/11/19 16:50 00:24 05:02 WBC RBC Hgb Hct MCV MCH MCHC RDW Lymph % (Auto) [place] % (Auto) Eos % (Auto) Lymph # [place] # Eos # Seg Neutrophils % Seg Neuts % (Manual) Lymphocytes % (Manual) Eosinophils % (Manual) Seg Neutrophils # Lymphocytes # (Manual) Eosinophils # (Manual) PT INR D-Dimer POC ABG pH POC ABG pCO2 POC ABG pO2 ABG pO2 ABG HCO3 ABG Base Excess ABG Hemoglobin Oxyhemoglobin Sodium Potassium Chloride Carbon Dioxide BUN Creatinine Glucose POC Glucose 147 H 123 H 120 H Calcium Phosphorus Magnesium ALT Alkaline Phosphatase Total Creatine Kinase CK-MB (CK-2) Rel Index Troponin T Albumin LDL Cholesterol Direct PTH Intact Salicylates Acetaminophen Crossmatch 03/11/19 03/11/19 03/11/19 11:56 12:20 18:37 WBC RBC Hgb Hct MCV MCH MCHC RDW Lymph % (Auto) [place] % (Auto) Eos % (Auto) Lymph # [place] # Eos # Seg Neutrophils % Seg Neuts % (Manual) Lymphocytes % (Manual) Eosinophils % (Manual) Seg Neutrophils # Lymphocytes # (Manual) Eosinophils # (Manual) PT INR D-Dimer POC ABG pH POC ABG pCO2 POC ABG pO2 ABG pO2 ABG HCO3 ABG Base Excess ABG Hemoglobin Oxyhemoglobin Sodium Potassium 5.2 H Chloride Carbon Dioxide BUN Creatinine Glucose POC Glucose 123 H 125 H Calcium Phosphorus Magnesium ALT Alkaline Phosphatase Total Creatine Kinase CK-MB (CK-2) Rel Index Troponin T Albumin LDL Cholesterol Direct PTH Intact Salicylates Acetaminophen Crossmatch 03/11/19 03/12/19 03/12/19 22:52 12:04 18:25 WBC RBC Hgb Hct MCV MCH MCHC RDW Lymph % (Auto) [place] % (Auto) Eos % (Auto) Lymph # [place] # Eos # Seg Neutrophils % Seg Neuts % (Manual) Lymphocytes % (Manual) Eosinophils % (Manual) Seg Neutrophils # Lymphocytes # (Manual) Eosinophils # (Manual) PT INR D-Dimer POC ABG pH POC ABG pCO2 POC ABG pO2 ABG pO2 ABG HCO3 ABG Base Excess ABG Hemoglobin Oxyhemoglobin Sodium Potassium Chloride Carbon Dioxide BUN Creatinine Glucose POC Glucose 110 H 106 H 118 H Calcium Phosphorus Magnesium ALT Alkaline Phosphatase Total Creatine Kinase CK-MB (CK-2) Rel Index Troponin T Albumin LDL Cholesterol Direct PTH Intact Salicylates Acetaminophen Crossmatch 03/12/19 03/13/19 03/13/19 23:36 04:38 04:38 WBC RBC 2.95 L Hgb 7.9 L Hct 24.9 L MCV MCH 27 L MCHC RDW 19.9 H Lymph % (Auto) 11.1 L [place] % (Auto) 8.1 H Eos % (Auto) 4.4 H Lymph # 0.9 L [place] # Eos # Seg Neutrophils % 75.4 H Seg Neuts % (Manual) Lymphocytes % (Manual) Eosinophils % (Manual) Seg Neutrophils # Lymphocytes # (Manual) Eosinophils # (Manual) PT INR D-Dimer POC ABG pH POC ABG pCO2 POC ABG pO2 ABG pO2 ABG HCO3 ABG Base Excess ABG Hemoglobin Oxyhemoglobin Sodium 136 L Potassium 5.1 H Chloride 93.8 L Carbon Dioxide BUN 48 H Creatinine 2.7 H Glucose 102 H POC Glucose 115 H Calcium Phosphorus Magnesium ALT < 5 L Alkaline Phosphatase 143 H Total Creatine Kinase CK-MB (CK-2) Rel Index Troponin T Albumin 2.5 L LDL Cholesterol Direct PTH Intact Salicylates Acetaminophen Crossmatch 03/13/19 03/13/19 03/13/19 05:33 13:37 18:03 WBC RBC Hgb Hct MCV MCH MCHC RDW Lymph % (Auto) [place] % (Auto) Eos % (Auto) Lymph # [place] # Eos # Seg Neutrophils % Seg Neuts % (Manual) Lymphocytes % (Manual) Eosinophils % (Manual) Seg Neutrophils # Lymphocytes # (Manual) Eosinophils # (Manual) PT INR D-Dimer POC ABG pH POC ABG pCO2 POC ABG pO2 ABG pO2 ABG HCO3 ABG Base Excess ABG Hemoglobin Oxyhemoglobin Sodium Potassium Chloride Carbon Dioxide BUN Creatinine Glucose POC Glucose 140 H 150 H 158 H Calcium Phosphorus Magnesium ALT Alkaline Phosphatase Total Creatine Kinase CK-MB (CK-2) Rel Index Troponin T Albumin LDL Cholesterol Direct PTH Intact Salicylates Acetaminophen Crossmatch 03/13/19 03/14/19 03/14/19 23:32 05:24 12:20 WBC RBC Hgb Hct MCV MCH MCHC RDW Lymph % (Auto) [place] % (Auto) Eos % (Auto) Lymph # [place] # Eos # Seg Neutrophils % Seg Neuts % (Manual) Lymphocytes % (Manual) Eosinophils % (Manual) Seg Neutrophils # Lymphocytes # (Manual) Eosinophils # (Manual) PT INR D-Dimer POC ABG pH POC ABG pCO2 POC ABG pO2 ABG pO2 ABG HCO3 ABG Base Excess ABG Hemoglobin Oxyhemoglobin Sodium Potassium Chloride Carbon Dioxide BUN Creatinine Glucose POC Glucose 162 H 146 H 127 H Calcium Phosphorus Magnesium ALT Alkaline Phosphatase Total Creatine Kinase CK-MB (CK-2) Rel Index Troponin T Albumin LDL Cholesterol Direct PTH Intact Salicylates Acetaminophen Crossmatch 03/14/19 03/14/19 03/15/19 18:05 23:57 04:38 WBC 12.8 H RBC 3.11 L Hgb 8.1 L Hct 26.5 L MCV MCH 26 L MCHC 31 L RDW 19.7 H Lymph % (Auto) 4.4 L [place] % (Auto) 7.4 H Eos % (Auto) Lymph # 0.6 L [place] # 0.9 H Eos # Seg Neutrophils % 87.3 H Seg Neuts % (Manual) Lymphocytes % (Manual) Eosinophils % (Manual) Seg Neutrophils # 11.2 H Lymphocytes # (Manual) Eosinophils # (Manual) PT INR D-Dimer POC ABG pH POC ABG pCO2 POC ABG pO2 ABG pO2 ABG HCO3 ABG Base Excess ABG Hemoglobin Oxyhemoglobin Sodium Potassium Chloride Carbon Dioxide BUN Creatinine Glucose POC Glucose 142 H 155 H Calcium Phosphorus Magnesium ALT Alkaline Phosphatase Total Creatine Kinase CK-MB (CK-2) Rel Index Troponin T Albumin LDL Cholesterol Direct PTH Intact Salicylates Acetaminophen Crossmatch 03/15/19 03/15/19 03/15/19 04:38 05:31 11:32 WBC RBC Hgb Hct MCV MCH MCHC RDW Lymph % (Auto) [place] % (Auto) Eos % (Auto) Lymph # [place] # Eos # Seg Neutrophils % Seg Neuts % (Manual) Lymphocytes % (Manual) Eosinophils % (Manual) Seg Neutrophils # Lymphocytes # (Manual) Eosinophils # (Manual) PT INR D-Dimer POC ABG pH POC ABG pCO2 POC ABG pO2 ABG pO2 ABG HCO3 ABG Base Excess ABG Hemoglobin Oxyhemoglobin Sodium 135 L Potassium Chloride 91.9 L Carbon Dioxide BUN 54 H Creatinine 2.8 H Glucose 128 H POC Glucose 160 H 109 H Calcium 11.1 H Phosphorus Magnesium ALT Alkaline Phosphatase 161 H Total Creatine Kinase CK-MB (CK-2) Rel Index Troponin T Albumin 2.3 L LDL Cholesterol Direct PTH Intact Salicylates Acetaminophen Crossmatch 03/15/19 03/15/19 03/16/19 18:15 23:41 05:40 WBC RBC Hgb Hct MCV MCH MCHC RDW Lymph % (Auto) [place] % (Auto) Eos % (Auto) Lymph # [place] # Eos # Seg Neutrophils % Seg Neuts % (Manual) Lymphocytes % (Manual) Eosinophils % (Manual) Seg Neutrophils # Lymphocytes # (Manual) Eosinophils # (Manual) PT INR D-Dimer POC ABG pH POC ABG pCO2 POC ABG pO2 ABG pO2 ABG HCO3 ABG Base Excess ABG Hemoglobin Oxyhemoglobin Sodium Potassium Chloride Carbon Dioxide BUN Creatinine Glucose POC Glucose 151 H 110 H 163 H Calcium Phosphorus Magnesium ALT Alkaline Phosphatase Total Creatine Kinase CK-MB (CK-2) Rel Index Troponin T Albumin LDL Cholesterol Direct PTH Intact Salicylates Acetaminophen Crossmatch 03/16/19 03/16/19 03/16/19 11:55 17:04 23:58 WBC RBC Hgb Hct MCV MCH MCHC RDW Lymph % (Auto) [place] % (Auto) Eos % (Auto) Lymph # [place] # Eos # Seg Neutrophils % Seg Neuts % (Manual) Lymphocytes % (Manual) Eosinophils % (Manual) Seg Neutrophils # Lymphocytes # (Manual) Eosinophils # (Manual) PT INR D-Dimer POC ABG pH POC ABG pCO2 POC ABG pO2 ABG pO2 ABG HCO3 ABG Base Excess ABG Hemoglobin Oxyhemoglobin Sodium Potassium Chloride Carbon Dioxide BUN Creatinine Glucose POC Glucose 114 H 147 H 192 H Calcium Phosphorus Magnesium ALT Alkaline Phosphatase Total Creatine Kinase CK-MB (CK-2) Rel Index Troponin T Albumin LDL Cholesterol Direct PTH Intact Salicylates Acetaminophen Crossmatch 03/17/19 03/17/19 03/17/19 05:53 11:17 17:01 WBC RBC Hgb Hct MCV MCH MCHC RDW Lymph % (Auto) [place] % (Auto) Eos % (Auto) Lymph # [place] # Eos # Seg Neutrophils % Seg Neuts % (Manual) Lymphocytes % (Manual) Eosinophils % (Manual) Seg Neutrophils # Lymphocytes # (Manual) Eosinophils # (Manual) PT INR D-Dimer POC ABG pH POC ABG pCO2 POC ABG pO2 ABG pO2 ABG HCO3 ABG Base Excess ABG Hemoglobin Oxyhemoglobin Sodium Potassium Chloride Carbon Dioxide BUN Creatinine Glucose POC Glucose 151 H 161 H 152 H Calcium Phosphorus Magnesium ALT Alkaline Phosphatase Total Creatine Kinase CK-MB (CK-2) Rel Index Troponin T Albumin LDL Cholesterol Direct PTH Intact Salicylates Acetaminophen Crossmatch 03/17/19 03/18/19 03/18/19 21:47 04:15 04:44 WBC RBC Hgb Hct MCV MCH MCHC RDW Lymph % (Auto) [place] % (Auto) Eos % (Auto) Lymph # [place] # Eos # Seg Neutrophils % Seg Neuts % (Manual) Lymphocytes % (Manual) Eosinophils % (Manual) Seg Neutrophils # Lymphocytes # (Manual) Eosinophils # (Manual) PT INR D-Dimer POC ABG pH POC ABG pCO2 POC ABG pO2 ABG pO2 102.8 H ABG HCO3 28.3 H ABG Base Excess ABG Hemoglobin 10.4 L Oxyhemoglobin 94.5 L Sodium Potassium Chloride Carbon Dioxide BUN Creatinine Glucose POC Glucose 170 H 150 H Calcium Phosphorus Magnesium ALT Alkaline Phosphatase Total Creatine Kinase CK-MB (CK-2) Rel Index Troponin T Albumin LDL Cholesterol Direct PTH Intact Salicylates Acetaminophen Crossmatch 03/18/19 03/18/19 03/18/19 06:38 12:12 17:47 WBC RBC Hgb Hct MCV MCH MCHC RDW Lymph % (Auto) [place] % (Auto) Eos % (Auto) Lymph # [place] # Eos # Seg Neutrophils % Seg Neuts % (Manual) Lymphocytes % (Manual) Eosinophils % (Manual) Seg Neutrophils # Lymphocytes # (Manual) Eosinophils # (Manual) PT INR D-Dimer POC ABG pH 7.510 H POC ABG pCO2 POC ABG pO2 164 H ABG pO2 ABG HCO3 ABG Base Excess ABG Hemoglobin Oxyhemoglobin Sodium Potassium Chloride Carbon Dioxide BUN Creatinine Glucose POC Glucose 145 H 149 H Calcium Phosphorus Magnesium ALT Alkaline Phosphatase Total Creatine Kinase CK-MB (CK-2) Rel Index Troponin T Albumin LDL Cholesterol Direct PTH Intact Salicylates Acetaminophen Crossmatch 03/18/19 03/19/19 03/19/19 23:25 01:11 04:23 WBC 15.6 H RBC 2.51 L Hgb 6.5 L Hct 21.6 L MCV MCH 26 L MCHC 30 L RDW 19.8 H Lymph % (Auto) 6.0 L [place] % (Auto) Eos % (Auto) Lymph # 0.9 L [place] # 1.0 H Eos # Seg Neutrophils % 85.5 H Seg Neuts % (Manual) Lymphocytes % (Manual) Eosinophils % (Manual) Seg Neutrophils # 13.4 H Lymphocytes # (Manual) Eosinophils # (Manual) PT INR D-Dimer POC ABG pH POC ABG pCO2 POC ABG pO2 ABG pO2 78.3 L ABG HCO3 30.7 H ABG Base Excess 5.8 H ABG Hemoglobin 5.8 L Oxyhemoglobin 94.6 L Sodium Potassium Chloride Carbon Dioxide BUN Creatinine Glucose POC Glucose 190 H Calcium Phosphorus Magnesium ALT Alkaline Phosphatase Total Creatine Kinase CK-MB (CK-2) Rel Index Troponin T Albumin LDL Cholesterol Direct PTH Intact Salicylates Acetaminophen Crossmatch 03/19/19 03/19/19 03/19/19 05:22 05:35 08:54 WBC RBC Hgb Hct MCV MCH MCHC RDW Lymph % (Auto) [place] % (Auto) Eos % (Auto) Lymph # [place] # Eos # Seg Neutrophils % Seg Neuts % (Manual) Lymphocytes % (Manual) Eosinophils % (Manual) Seg Neutrophils # Lymphocytes # (Manual) Eosinophils # (Manual) PT INR D-Dimer POC ABG pH POC ABG pCO2 POC ABG pO2 ABG pO2 ABG HCO3 ABG Base Excess ABG Hemoglobin Oxyhemoglobin Sodium Potassium Chloride Carbon Dioxide BUN Creatinine Glucose POC Glucose 167 H Calcium Phosphorus Magnesium ALT Alkaline Phosphatase Total Creatine Kinase CK-MB (CK-2) Rel Index Troponin T Albumin LDL Cholesterol Direct PTH Intact Salicylates Acetaminophen Crossmatch See Detail See Detail 03/19/19 03/19/19 03/19/19 12:36 17:02 23:25 WBC RBC Hgb Hct MCV MCH MCHC RDW Lymph % (Auto) [place] % (Auto) Eos % (Auto) Lymph # [place] # Eos # Seg Neutrophils % Seg Neuts % (Manual) Lymphocytes % (Manual) Eosinophils % (Manual) Seg Neutrophils # Lymphocytes # (Manual) Eosinophils # (Manual) PT INR D-Dimer POC ABG pH POC ABG pCO2 POC ABG pO2 ABG pO2 ABG HCO3 ABG Base Excess ABG Hemoglobin Oxyhemoglobin Sodium Potassium Chloride Carbon Dioxide BUN Creatinine Glucose POC Glucose 167 H 135 H 136 H Calcium Phosphorus Magnesium ALT Alkaline Phosphatase Total Creatine Kinase CK-MB (CK-2) Rel Index Troponin T Albumin LDL Cholesterol Direct PTH Intact Salicylates Acetaminophen Crossmatch 03/20/19 03/20/19 03/20/19 05:38 08:40 08:40 WBC RBC 2.61 L Hgb 7.1 L Hct 22.0 L MCV MCH 27 L MCHC RDW 19.6 H Lymph % (Auto) 8.2 L [place] % (Auto) 8.3 H Eos % (Auto) 5.7 H Lymph # 0.8 L [place] # Eos # 0.5 H Seg Neutrophils % 77.3 H Seg Neuts % (Manual) Lymphocytes % (Manual) Eosinophils % (Manual) Seg Neutrophils # Lymphocytes # (Manual) Eosinophils # (Manual) PT INR D-Dimer POC ABG pH POC ABG pCO2 POC ABG pO2 ABG pO2 ABG HCO3 ABG Base Excess ABG Hemoglobin Oxyhemoglobin Sodium Potassium Chloride 95.9 L Carbon Dioxide BUN 69 H Creatinine 2.8 H Glucose 115 H POC Glucose 134 H Calcium 10.5 H Phosphorus Magnesium ALT Alkaline Phosphatase Total Creatine Kinase CK-MB (CK-2) Rel Index Troponin T Albumin LDL Cholesterol Direct PTH Intact Salicylates Acetaminophen Crossmatch 03/20/19 03/20/19 03/20/19 12:13 18:04 23:49 WBC RBC Hgb Hct MCV MCH MCHC RDW Lymph % (Auto) [place] % (Auto) Eos % (Auto) Lymph # [place] # Eos # Seg Neutrophils % Seg Neuts % (Manual) Lymphocytes % (Manual) Eosinophils % (Manual) Seg Neutrophils # Lymphocytes # (Manual) Eosinophils # (Manual) PT INR D-Dimer POC ABG pH POC ABG pCO2 POC ABG pO2 ABG pO2 ABG HCO3 ABG Base Excess ABG Hemoglobin Oxyhemoglobin Sodium Potassium Chloride Carbon Dioxide BUN Creatinine Glucose POC Glucose 144 H 165 H 172 H Calcium Phosphorus Magnesium ALT Alkaline Phosphatase Total Creatine Kinase CK-MB (CK-2) Rel Index Troponin T Albumin LDL Cholesterol Direct PTH Intact Salicylates Acetaminophen Crossmatch 03/21/19 03/21/19 03/21/19 05:00 06:29 06:30 WBC RBC 2.72 L Hgb 7.4 L Hct 22.9 L MCV MCH 27 L MCHC RDW 19.4 H Lymph % (Auto) [place] % (Auto) Eos % (Auto) Lymph # [place] # Eos # Seg Neutrophils % Seg Neuts % (Manual) 81.0 H Lymphocytes % (Manual) 8.0 L Eosinophils % (Manual) 8.0 H Seg Neutrophils # Lymphocytes # (Manual) 0.7 L Eosinophils # (Manual) 0.7 H PT INR D-Dimer POC ABG pH POC ABG pCO2 POC ABG pO2 ABG pO2 ABG HCO3 ABG Base Excess ABG Hemoglobin Oxyhemoglobin Sodium Potassium Chloride Carbon Dioxide 33 H BUN 43 H Creatinine 1.7 H Glucose 145 H POC Glucose 156 H Calcium Phosphorus Magnesium ALT Alkaline Phosphatase 212 H Total Creatine Kinase CK-MB (CK-2) Rel Index Troponin T Albumin 2.2 L LDL Cholesterol Direct PTH Intact Salicylates Acetaminophen Crossmatch 03/21/19 03/21/19 03/22/19 12:02 18:07 00:21 WBC RBC Hgb Hct MCV MCH MCHC RDW Lymph % (Auto) [place] % (Auto) Eos % (Auto) Lymph # [place] # Eos # Seg Neutrophils % Seg Neuts % (Manual) Lymphocytes % (Manual) Eosinophils % (Manual) Seg Neutrophils # Lymphocytes # (Manual) Eosinophils # (Manual) PT INR D-Dimer POC ABG pH POC ABG pCO2 POC ABG pO2 ABG pO2 ABG HCO3 ABG Base Excess ABG Hemoglobin Oxyhemoglobin Sodium Potassium Chloride Carbon Dioxide BUN Creatinine Glucose POC Glucose 163 H 144 H 153 H Calcium Phosphorus Magnesium ALT Alkaline Phosphatase Total Creatine Kinase CK-MB (CK-2) Rel Index Troponin T Albumin LDL Cholesterol Direct PTH Intact Salicylates Acetaminophen Crossmatch 03/22/19 03/22/19 03/22/19 05:23 05:23 05:31 WBC RBC 2.58 L Hgb 7.1 L Hct 21.8 L MCV MCH 27 L MCHC RDW 19.2 H Lymph % (Auto) [place] % (Auto) Eos % (Auto) Lymph # [place] # Eos # Seg Neutrophils % Seg Neuts % (Manual) Lymphocytes % (Manual) Eosinophils % (Manual) Seg Neutrophils # Lymphocytes # (Manual) Eosinophils # (Manual) PT INR D-Dimer POC ABG pH POC ABG pCO2 POC ABG pO2 ABG pO2 ABG HCO3 ABG Base Excess ABG Hemoglobin Oxyhemoglobin Sodium 147 H Potassium Chloride Carbon Dioxide BUN 68 H Creatinine 2.5 H Glucose POC Glucose 116 H Calcium 10.3 H Phosphorus Magnesium ALT Alkaline Phosphatase Total Creatine Kinase CK-MB (CK-2) Rel Index Troponin T Albumin LDL Cholesterol Direct PTH Intact Salicylates Acetaminophen Crossmatch 03/22/19 03/22/19 03/22/19 08:48 12:37 17:35 WBC RBC Hgb Hct MCV MCH MCHC RDW Lymph % (Auto) [place] % (Auto) Eos % (Auto) Lymph # [place] # Eos # Seg Neutrophils % Seg Neuts % (Manual) Lymphocytes % (Manual) Eosinophils % (Manual) Seg Neutrophils # Lymphocytes # (Manual) Eosinophils # (Manual) PT INR D-Dimer POC ABG pH POC ABG pCO2 POC ABG pO2 ABG pO2 ABG HCO3 ABG Base Excess ABG Hemoglobin Oxyhemoglobin Sodium Potassium Chloride Carbon Dioxide BUN Creatinine Glucose POC Glucose 143 H 155 H Calcium Phosphorus Magnesium ALT Alkaline Phosphatase Total Creatine Kinase CK-MB (CK-2) Rel Index Troponin T Albumin LDL Cholesterol Direct PTH Intact Salicylates Acetaminophen Crossmatch See Detail 03/23/19 03/23/19 03/23/19 00:07 04:00 04:00 WBC 11.2 H RBC 2.32 L Hgb 6.4 L Hct 19.7 L* MCV MCH MCHC RDW 19.4 H Lymph % (Auto) [place] % (Auto) Eos % (Auto) Lymph # [place] # Eos # Seg Neutrophils % Seg Neuts % (Manual) Lymphocytes % (Manual) Eosinophils % (Manual) Seg Neutrophils # Lymphocytes # (Manual) Eosinophils # (Manual) PT INR D-Dimer POC ABG pH POC ABG pCO2 POC ABG pO2 ABG pO2 ABG HCO3 ABG Base Excess ABG Hemoglobin Oxyhemoglobin Sodium 147 H Potassium 5.2 H Chloride Carbon Dioxide BUN 86 H Creatinine 3.2 H Glucose 128 H POC Glucose 135 H Calcium 10.3 H Phosphorus Magnesium ALT Alkaline Phosphatase Total Creatine Kinase CK-MB (CK-2) Rel Index Troponin T Albumin LDL Cholesterol Direct PTH Intact Salicylates Acetaminophen Crossmatch 03/23/19 03/23/19 03/23/19 05:21 11:36 11:36 WBC RBC Hgb 7.9 L Hct 25.0 L MCV MCH MCHC RDW Lymph % (Auto) [place] % (Auto) Eos % (Auto) Lymph # [place] # Eos # Seg Neutrophils % Seg Neuts % (Manual) Lymphocytes % (Manual) Eosinophils % (Manual) Seg Neutrophils # Lymphocytes # (Manual) Eosinophils # (Manual) PT INR D-Dimer POC ABG pH POC ABG pCO2 POC ABG pO2 ABG pO2 ABG HCO3 ABG Base Excess ABG Hemoglobin Oxyhemoglobin Sodium Potassium Chloride Carbon Dioxide BUN Creatinine Glucose POC Glucose 132 H 147 H Calcium Phosphorus Magnesium ALT Alkaline Phosphatase Total Creatine Kinase CK-MB (CK-2) Rel Index Troponin T Albumin LDL Cholesterol Direct PTH Intact Salicylates Acetaminophen Crossmatch 03/23/19 03/24/19 03/24/19 17:31 01:22 04:20 WBC 12.2 H RBC 3.05 L Hgb 8.3 L Hct 25.9 L MCV MCH 27 L MCHC RDW 18.7 H Lymph % (Auto) [place] % (Auto) Eos % (Auto) Lymph # [place] # Eos # Seg Neutrophils % Seg Neuts % (Manual) Lymphocytes % (Manual) Eosinophils % (Manual) Seg Neutrophils # Lymphocytes # (Manual) Eosinophils # (Manual) PT INR D-Dimer POC ABG pH POC ABG pCO2 POC ABG pO2 ABG pO2 ABG HCO3 ABG Base Excess ABG Hemoglobin Oxyhemoglobin Sodium Potassium Chloride Carbon Dioxide BUN Creatinine Glucose POC Glucose 182 H 113 H Calcium Phosphorus Magnesium ALT Alkaline Phosphatase Total Creatine Kinase CK-MB (CK-2) Rel Index Troponin T Albumin LDL Cholesterol Direct PTH Intact Salicylates Acetaminophen Crossmatch 03/24/19 03/24/19 03/24/19 04:20 11:59 18:14 WBC RBC Hgb Hct MCV MCH MCHC RDW Lymph % (Auto) [place] % (Auto) Eos % (Auto) Lymph # [place] # Eos # Seg Neutrophils % Seg Neuts % (Manual) Lymphocytes % (Manual) Eosinophils % (Manual) Seg Neutrophils # Lymphocytes # (Manual) Eosinophils # (Manual) PT INR D-Dimer POC ABG pH POC ABG pCO2 POC ABG pO2 ABG pO2 ABG HCO3 ABG Base Excess ABG Hemoglobin Oxyhemoglobin Sodium Potassium Chloride 94.8 L Carbon Dioxide 32 H BUN 53 H Creatinine 2.3 H Glucose POC Glucose 163 H 134 H Calcium Phosphorus Magnesium ALT Alkaline Phosphatase Total Creatine Kinase CK-MB (CK-2) Rel Index Troponin T Albumin LDL Cholesterol Direct PTH Intact Salicylates Acetaminophen Crossmatch 03/24/19 03/25/19 03/25/19 23:15 05:52 12:02 WBC RBC Hgb Hct MCV MCH MCHC RDW Lymph % (Auto) [place] % (Auto) Eos % (Auto) Lymph # [place] # Eos # Seg Neutrophils % Seg Neuts % (Manual) Lymphocytes % (Manual) Eosinophils % (Manual) Seg Neutrophils # Lymphocytes # (Manual) Eosinophils # (Manual) PT INR D-Dimer POC ABG pH POC ABG pCO2 POC ABG pO2 ABG pO2 ABG HCO3 ABG Base Excess ABG Hemoglobin Oxyhemoglobin Sodium Potassium Chloride Carbon Dioxide BUN Creatinine Glucose POC Glucose 129 H 123 H 125 H Calcium Phosphorus Magnesium ALT Alkaline Phosphatase Total Creatine Kinase CK-MB (CK-2) Rel Index Troponin T Albumin LDL Cholesterol Direct PTH Intact Salicylates Acetaminophen Crossmatch 03/25/19 03/26/19 03/26/19 17:27 00:30 05:35 WBC RBC 3.01 L Hgb 8.1 L Hct 25.7 L MCV MCH 27 L MCHC RDW 19.2 H Lymph % (Auto) 11.4 L [place] % (Auto) Eos % (Auto) 8.0 H Lymph # 1.0 L [place] # Eos # 0.7 H Seg Neutrophils % 73.9 H Seg Neuts % (Manual) Lymphocytes % (Manual) Eosinophils % (Manual) Seg Neutrophils # Lymphocytes # (Manual) Eosinophils # (Manual) PT INR D-Dimer POC ABG pH POC ABG pCO2 POC ABG pO2 ABG pO2 ABG HCO3 ABG Base Excess ABG Hemoglobin Oxyhemoglobin Sodium Potassium Chloride Carbon Dioxide BUN Creatinine Glucose POC Glucose 130 H 129 H Calcium Phosphorus Magnesium ALT Alkaline Phosphatase Total Creatine Kinase CK-MB (CK-2) Rel Index Troponin T Albumin LDL Cholesterol Direct PTH Intact Salicylates Acetaminophen Crossmatch 03/26/19 03/26/19 03/26/19 05:35 05:45 12:16 WBC RBC Hgb Hct MCV MCH MCHC RDW Lymph % (Auto) [place] % (Auto) Eos % (Auto) Lymph # [place] # Eos # Seg Neutrophils % Seg Neuts % (Manual) Lymphocytes % (Manual) Eosinophils % (Manual) Seg Neutrophils # Lymphocytes # (Manual) Eosinophils # (Manual) PT INR D-Dimer POC ABG pH POC ABG pCO2 POC ABG pO2 ABG pO2 ABG HCO3 ABG Base Excess ABG Hemoglobin Oxyhemoglobin Sodium Potassium Chloride 94.9 L Carbon Dioxide 31 H BUN 44 H Creatinine 2.0 H Glucose POC Glucose 118 H 107 H Calcium Phosphorus Magnesium ALT Alkaline Phosphatase Total Creatine Kinase CK-MB (CK-2) Rel Index Troponin T Albumin LDL Cholesterol Direct PTH Intact Salicylates Acetaminophen Crossmatch 03/26/19 03/27/19 03/27/19 17:56 00:36 05:37 WBC RBC Hgb Hct MCV MCH MCHC RDW Lymph % (Auto) [place] % (Auto) Eos % (Auto) Lymph # [place] # Eos # Seg Neutrophils % Seg Neuts % (Manual) Lymphocytes % (Manual) Eosinophils % (Manual) Seg Neutrophils # Lymphocytes # (Manual) Eosinophils # (Manual) PT INR D-Dimer POC ABG pH POC ABG pCO2 POC ABG pO2 ABG pO2 ABG HCO3 ABG Base Excess ABG Hemoglobin Oxyhemoglobin Sodium Potassium Chloride Carbon Dioxide BUN Creatinine Glucose POC Glucose 107 H 110 H 122 H Calcium Phosphorus Magnesium ALT Alkaline Phosphatase Total Creatine Kinase CK-MB (CK-2) Rel Index Troponin T Albumin LDL Cholesterol Direct PTH Intact Salicylates Acetaminophen Crossmatch 03/27/19 03/27/19 03/28/19 11:22 18:00 05:17 WBC RBC Hgb Hct MCV MCH MCHC RDW Lymph % (Auto) [place] % (Auto) Eos % (Auto) Lymph # [place] # Eos # Seg Neutrophils % Seg Neuts % (Manual) Lymphocytes % (Manual) Eosinophils % (Manual) Seg Neutrophils # Lymphocytes # (Manual) Eosinophils # (Manual) PT INR D-Dimer POC ABG pH POC ABG pCO2 POC ABG pO2 ABG pO2 ABG HCO3 ABG Base Excess ABG Hemoglobin Oxyhemoglobin Sodium Potassium Chloride Carbon Dioxide BUN Creatinine Glucose POC Glucose 120 H 111 H 107 H Calcium Phosphorus Magnesium ALT Alkaline Phosphatase Total Creatine Kinase CK-MB (CK-2) Rel Index Troponin T Albumin LDL Cholesterol Direct PTH Intact Salicylates Acetaminophen Crossmatch 03/28/19 03/28/19 03/29/19 12:27 18:08 05:47 WBC RBC Hgb Hct MCV MCH MCHC RDW Lymph % (Auto) [place] % (Auto) Eos % (Auto) Lymph # [place] # Eos # Seg Neutrophils % Seg Neuts % (Manual) Lymphocytes % (Manual) Eosinophils % (Manual) Seg Neutrophils # Lymphocytes # (Manual) Eosinophils # (Manual) PT INR D-Dimer POC ABG pH POC ABG pCO2 POC ABG pO2 ABG pO2 ABG HCO3 ABG Base Excess ABG Hemoglobin Oxyhemoglobin Sodium Potassium Chloride Carbon Dioxide BUN Creatinine Glucose POC Glucose 114 H 121 H 112 H Calcium Phosphorus Magnesium ALT Alkaline Phosphatase Total Creatine Kinase CK-MB (CK-2) Rel Index Troponin T Albumin LDL Cholesterol Direct PTH Intact Salicylates Acetaminophen Crossmatch 03/29/19 03/29/19 03/30/19 12:14 18:08 00:31 WBC RBC Hgb Hct MCV MCH MCHC RDW Lymph % (Auto) [place] % (Auto) Eos % (Auto) Lymph # [place] # Eos # Seg Neutrophils % Seg Neuts % (Manual) Lymphocytes % (Manual) Eosinophils % (Manual) Seg Neutrophils # Lymphocytes # (Manual) Eosinophils # (Manual) PT INR D-Dimer POC ABG pH POC ABG pCO2 POC ABG pO2 ABG pO2 ABG HCO3 ABG Base Excess ABG Hemoglobin Oxyhemoglobin Sodium Potassium Chloride Carbon Dioxide BUN Creatinine Glucose POC Glucose 117 H 140 H 114 H Calcium Phosphorus Magnesium ALT Alkaline Phosphatase Total Creatine Kinase CK-MB (CK-2) Rel Index Troponin T Albumin LDL Cholesterol Direct PTH Intact Salicylates Acetaminophen Crossmatch 03/30/19 03/30/19 03/30/19 10:13 10:13 23:53 WBC RBC 2.81 L Hgb 7.7 L Hct 24.3 L MCV MCH 27 L MCHC RDW 19.0 H Lymph % (Auto) 12.2 L [place] % (Auto) Eos % (Auto) 7.9 H Lymph # 1.0 L [place] # Eos # 0.6 H Seg Neutrophils % 72.3 H Seg Neuts % (Manual) Lymphocytes % (Manual) Eosinophils % (Manual) Seg Neutrophils # Lymphocytes # (Manual) Eosinophils # (Manual) PT INR D-Dimer POC ABG pH POC ABG pCO2 POC ABG pO2 ABG pO2 ABG HCO3 ABG Base Excess ABG Hemoglobin Oxyhemoglobin Sodium Potassium 5.1 H Chloride 96.5 L Carbon Dioxide BUN 73 H Creatinine 3.9 H D Glucose POC Glucose 114 H Calcium 10.3 H Phosphorus 6.30 H Magnesium 2.70 H ALT Alkaline Phosphatase 185 H Total Creatine Kinase CK-MB (CK-2) Rel Index Troponin T Albumin 2.6 L LDL Cholesterol Direct PTH Intact Salicylates Acetaminophen Crossmatch 03/31/19 03/31/19 03/31/19 05:45 10:26 10:26 WBC RBC 3.01 L Hgb 8.2 L Hct 26.4 L MCV MCH 27 L MCHC 31 L RDW 20.3 H Lymph % (Auto) 13.3 L [place] % (Auto) Eos % (Auto) 7.2 H Lymph # 1.1 L [place] # Eos # 0.6 H Seg Neutrophils % 72.1 H Seg Neuts % (Manual) Lymphocytes % (Manual) Eosinophils % (Manual) Seg Neutrophils # Lymphocytes # (Manual) Eosinophils # (Manual) PT INR D-Dimer POC ABG pH POC ABG pCO2 POC ABG pO2 ABG pO2 ABG HCO3 ABG Base Excess ABG Hemoglobin Oxyhemoglobin Sodium Potassium Chloride 96.9 L Carbon Dioxide 33 H BUN 37 H Creatinine 2.4 H Glucose POC Glucose 108 H Calcium 10.3 H Phosphorus Magnesium ALT Alkaline Phosphatase Total Creatine Kinase CK-MB (CK-2) Rel Index Troponin T Albumin LDL Cholesterol Direct PTH Intact Salicylates Acetaminophen Crossmatch 03/31/19 04/01/19 04/01/19 12:38 05:48 12:06 WBC RBC Hgb Hct MCV MCH MCHC RDW Lymph % (Auto) [place] % (Auto) Eos % (Auto) Lymph # [place] # Eos # Seg Neutrophils % Seg Neuts % (Manual) Lymphocytes % (Manual) Eosinophils % (Manual) Seg Neutrophils # Lymphocytes # (Manual) Eosinophils # (Manual) PT INR D-Dimer POC ABG pH POC ABG pCO2 POC ABG pO2 ABG pO2 ABG HCO3 ABG Base Excess ABG Hemoglobin Oxyhemoglobin Sodium Potassium Chloride Carbon Dioxide BUN Creatinine Glucose POC Glucose 108 H 114 H 111 H Calcium Phosphorus Magnesium ALT Alkaline Phosphatase Total Creatine Kinase CK-MB (CK-2) Rel Index Troponin T Albumin LDL Cholesterol Direct PTH Intact Salicylates Acetaminophen Crossmatch 04/01/19 04/02/19 04/04/19 18:24 00:36 23:55 WBC RBC Hgb Hct MCV MCH MCHC RDW Lymph % (Auto) [place] % (Auto) Eos % (Auto) Lymph # [place] # Eos # Seg Neutrophils % Seg Neuts % (Manual) Lymphocytes % (Manual) Eosinophils % (Manual) Seg Neutrophils # Lymphocytes # (Manual) Eosinophils # (Manual) PT INR D-Dimer POC ABG pH POC ABG pCO2 POC ABG pO2 ABG pO2 ABG HCO3 ABG Base Excess ABG Hemoglobin Oxyhemoglobin Sodium Potassium Chloride Carbon Dioxide BUN Creatinine Glucose POC Glucose 113 H 117 H 109 H Calcium Phosphorus Magnesium ALT Alkaline Phosphatase Total Creatine Kinase CK-MB (CK-2) Rel Index Troponin T Albumin LDL Cholesterol Direct PTH Intact Salicylates Acetaminophen Crossmatch 04/06/19 04/06/19 04/06/19 00:11 06:02 23:30 WBC RBC Hgb Hct MCV MCH MCHC RDW Lymph % (Auto) [place] % (Auto) Eos % (Auto) Lymph # [place] # Eos # Seg Neutrophils % Seg Neuts % (Manual) Lymphocytes % (Manual) Eosinophils % (Manual) Seg Neutrophils # Lymphocytes # (Manual) Eosinophils # (Manual) PT INR D-Dimer POC ABG pH POC ABG pCO2 POC ABG pO2 ABG pO2 ABG HCO3 ABG Base Excess ABG Hemoglobin Oxyhemoglobin Sodium Potassium Chloride Carbon Dioxide BUN Creatinine Glucose POC Glucose 116 H 112 H 112 H Calcium Phosphorus Magnesium ALT Alkaline Phosphatase Total Creatine Kinase CK-MB (CK-2) Rel Index Troponin T Albumin LDL Cholesterol Direct PTH Intact Salicylates Acetaminophen Crossmatch 04/08/19 04/08/19 04/08/19 02:23 06:19 13:01 WBC RBC Hgb Hct MCV MCH MCHC RDW Lymph % (Auto) [place] % (Auto) Eos % (Auto) Lymph # [place] # Eos # Seg Neutrophils % Seg Neuts % (Manual) Lymphocytes % (Manual) Eosinophils % (Manual) Seg Neutrophils # Lymphocytes # (Manual) Eosinophils # (Manual) PT INR D-Dimer POC ABG pH POC ABG pCO2 POC ABG pO2 ABG pO2 ABG HCO3 ABG Base Excess ABG Hemoglobin Oxyhemoglobin Sodium Potassium Chloride Carbon Dioxide BUN Creatinine Glucose POC Glucose 144 H 126 H 118 H Calcium Phosphorus Magnesium ALT Alkaline Phosphatase Total Creatine Kinase CK-MB (CK-2) Rel Index Troponin T Albumin LDL Cholesterol Direct PTH Intact Salicylates Acetaminophen Crossmatch 04/08/19 04/09/19 04/10/19 23:28 05:52 06:34 WBC RBC Hgb Hct MCV MCH MCHC RDW Lymph % (Auto) [place] % (Auto) Eos % (Auto) Lymph # [place] # Eos # Seg Neutrophils % Seg Neuts % (Manual) Lymphocytes % (Manual) Eosinophils % (Manual) Seg Neutrophils # Lymphocytes # (Manual) Eosinophils # (Manual) PT INR D-Dimer POC ABG pH POC ABG pCO2 POC ABG pO2 ABG pO2 ABG HCO3 ABG Base Excess ABG Hemoglobin Oxyhemoglobin Sodium Potassium Chloride Carbon Dioxide BUN Creatinine Glucose POC Glucose 119 H 116 H 114 H Calcium Phosphorus Magnesium ALT Alkaline Phosphatase Total Creatine Kinase CK-MB (CK-2) Rel Index Troponin T Albumin LDL Cholesterol Direct PTH Intact Salicylates Acetaminophen Crossmatch 04/10/19 04/10/19 04/11/19 12:34 18:59 00:36 WBC RBC Hgb Hct MCV MCH MCHC RDW Lymph % (Auto) [place] % (Auto) Eos % (Auto) Lymph # [place] # Eos # Seg Neutrophils % Seg Neuts % (Manual) Lymphocytes % (Manual) Eosinophils % (Manual) Seg Neutrophils # Lymphocytes # (Manual) Eosinophils # (Manual) PT INR D-Dimer POC ABG pH POC ABG pCO2 POC ABG pO2 ABG pO2 ABG HCO3 ABG Base Excess ABG Hemoglobin Oxyhemoglobin Sodium Potassium Chloride Carbon Dioxide BUN Creatinine Glucose POC Glucose 112 H 109 H 124 H Calcium Phosphorus Magnesium ALT Alkaline Phosphatase Total Creatine Kinase CK-MB (CK-2) Rel Index Troponin T Albumin LDL Cholesterol Direct PTH Intact Salicylates Acetaminophen Crossmatch 04/11/19 04/11/19 04/12/19 08:01 17:25 02:18 WBC RBC Hgb Hct MCV MCH MCHC RDW Lymph % (Auto) [place] % (Auto) Eos % (Auto) Lymph # [place] # Eos # Seg Neutrophils % Seg Neuts % (Manual) Lymphocytes % (Manual) Eosinophils % (Manual) Seg Neutrophils # Lymphocytes # (Manual) Eosinophils # (Manual) PT INR D-Dimer POC ABG pH POC ABG pCO2 POC ABG pO2 ABG pO2 ABG HCO3 ABG Base Excess ABG Hemoglobin Oxyhemoglobin Sodium Potassium Chloride Carbon Dioxide BUN Creatinine Glucose POC Glucose 118 H 106 H 125 H Calcium Phosphorus Magnesium ALT Alkaline Phosphatase Total Creatine Kinase CK-MB (CK-2) Rel Index Troponin T Albumin LDL Cholesterol Direct PTH Intact Salicylates Acetaminophen Crossmatch 04/12/19 04/12/19 04/12/19 06:24 12:22 17:13 WBC RBC Hgb Hct MCV MCH MCHC RDW Lymph % (Auto) [place] % (Auto) Eos % (Auto) Lymph # [place] # Eos # Seg Neutrophils % Seg Neuts % (Manual) Lymphocytes % (Manual) Eosinophils % (Manual) Seg Neutrophils # Lymphocytes # (Manual) Eosinophils # (Manual) PT INR D-Dimer POC ABG pH POC ABG pCO2 POC ABG pO2 ABG pO2 ABG HCO3 ABG Base Excess ABG Hemoglobin Oxyhemoglobin Sodium Potassium Chloride Carbon Dioxide BUN Creatinine Glucose POC Glucose 128 H 114 H 110 H Calcium Phosphorus Magnesium ALT Alkaline Phosphatase Total Creatine Kinase CK-MB (CK-2) Rel Index Troponin T Albumin LDL Cholesterol Direct PTH Intact Salicylates Acetaminophen Crossmatch 04/13/19 04/13/19 04/13/19 06:59 07:31 07:31 WBC RBC 3.34 L Hgb 8.9 L Hct 28.6 L MCV MCH 27 L MCHC 31 L RDW 19.6 H Lymph % (Auto) [place] % (Auto) Eos % (Auto) Lymph # [place] # Eos # Seg Neutrophils % Seg Neuts % (Manual) Lymphocytes % (Manual) Eosinophils % (Manual) Seg Neutrophils # Lymphocytes # (Manual) Eosinophils # (Manual) PT INR D-Dimer POC ABG pH POC ABG pCO2 POC ABG pO2 ABG pO2 ABG HCO3 ABG Base Excess ABG Hemoglobin Oxyhemoglobin Sodium Potassium Chloride 96.4 L Carbon Dioxide 33 H BUN 66 H Creatinine 4.5 H Glucose 103 H POC Glucose 107 H Calcium Phosphorus Magnesium ALT Alkaline Phosphatase Total Creatine Kinase CK-MB (CK-2) Rel Index Troponin T Albumin LDL Cholesterol Direct PTH Intact Salicylates Acetaminophen Crossmatch 04/13/19 04/14/19 04/14/19 23:43 05:50 13:07 WBC RBC Hgb Hct MCV MCH MCHC RDW Lymph % (Auto) [place] % (Auto) Eos % (Auto) Lymph # [place] # Eos # Seg Neutrophils % Seg Neuts % (Manual) Lymphocytes % (Manual) Eosinophils % (Manual) Seg Neutrophils # Lymphocytes # (Manual) Eosinophils # (Manual) PT INR D-Dimer POC ABG pH POC ABG pCO2 POC ABG pO2 ABG pO2 ABG HCO3 ABG Base Excess ABG Hemoglobin Oxyhemoglobin Sodium Potassium Chloride Carbon Dioxide BUN Creatinine Glucose POC Glucose 119 H 112 H 112 H Calcium Phosphorus Magnesium ALT Alkaline Phosphatase Total Creatine Kinase CK-MB (CK-2) Rel Index Troponin T Albumin LDL Cholesterol Direct PTH Intact Salicylates Acetaminophen Crossmatch 04/14/19 04/15/19 04/15/19 18:35 01:18 05:17 WBC RBC Hgb Hct MCV MCH MCHC RDW Lymph % (Auto) [place] % (Auto) Eos % (Auto) Lymph # [place] # Eos # Seg Neutrophils % Seg Neuts % (Manual) Lymphocytes % (Manual) Eosinophils % (Manual) Seg Neutrophils # Lymphocytes # (Manual) Eosinophils # (Manual) PT INR D-Dimer POC ABG pH POC ABG pCO2 POC ABG pO2 ABG pO2 ABG HCO3 ABG Base Excess ABG Hemoglobin Oxyhemoglobin Sodium Potassium Chloride Carbon Dioxide BUN Creatinine Glucose POC Glucose 114 H 114 H 114 H Calcium Phosphorus Magnesium ALT Alkaline Phosphatase Total Creatine Kinase CK-MB (CK-2) Rel Index Troponin T Albumin LDL Cholesterol Direct PTH Intact Salicylates Acetaminophen Crossmatch 04/15/19 04/15/19 04/16/19 11:50 23:39 05:41 WBC RBC Hgb Hct MCV MCH MCHC RDW Lymph % (Auto) [place] % (Auto) Eos % (Auto) Lymph # [place] # Eos # Seg Neutrophils % Seg Neuts % (Manual) Lymphocytes % (Manual) Eosinophils % (Manual) Seg Neutrophils # Lymphocytes # (Manual) Eosinophils # (Manual) PT INR D-Dimer POC ABG pH POC ABG pCO2 POC ABG pO2 ABG pO2 ABG HCO3 ABG Base Excess ABG Hemoglobin Oxyhemoglobin Sodium Potassium Chloride Carbon Dioxide BUN Creatinine Glucose POC Glucose 109 H 115 H 125 H Calcium Phosphorus Magnesium ALT Alkaline Phosphatase Total Creatine Kinase CK-MB (CK-2) Rel Index Troponin T Albumin LDL Cholesterol Direct PTH Intact Salicylates Acetaminophen Crossmatch 04/16/19 04/17/19 04/17/19 12:53 01:00 12:38 WBC RBC Hgb Hct MCV MCH MCHC RDW Lymph % (Auto) [place] % (Auto) Eos % (Auto) Lymph # [place] # Eos # Seg Neutrophils % Seg Neuts % (Manual) Lymphocytes % (Manual) Eosinophils % (Manual) Seg Neutrophils # Lymphocytes # (Manual) Eosinophils # (Manual) PT INR D-Dimer POC ABG pH POC ABG pCO2 POC ABG pO2 ABG pO2 ABG HCO3 ABG Base Excess ABG Hemoglobin Oxyhemoglobin Sodium Potassium Chloride Carbon Dioxide BUN Creatinine Glucose POC Glucose 121 H 127 H 159 H Calcium Phosphorus Magnesium ALT Alkaline Phosphatase Total Creatine Kinase CK-MB (CK-2) Rel Index Troponin T Albumin LDL Cholesterol Direct PTH Intact Salicylates Acetaminophen Crossmatch 04/17/19 04/17/19 04/18/19 18:27 23:36 07:19 WBC RBC 3.49 L Hgb 9.0 L Hct 29.9 L MCV MCH 26 L MCHC 30 L RDW 20.0 H Lymph % (Auto) [place] % (Auto) Eos % (Auto) Lymph # [place] # Eos # Seg Neutrophils % Seg Neuts % (Manual) Lymphocytes % (Manual) Eosinophils % (Manual) Seg Neutrophils # Lymphocytes # (Manual) Eosinophils # (Manual) PT INR D-Dimer POC ABG pH POC ABG pCO2 POC ABG pO2 ABG pO2 ABG HCO3 ABG Base Excess ABG Hemoglobin Oxyhemoglobin Sodium Potassium Chloride Carbon Dioxide BUN Creatinine Glucose POC Glucose 109 H 134 H Calcium Phosphorus Magnesium ALT Alkaline Phosphatase Total Creatine Kinase CK-MB (CK-2) Rel Index Troponin T Albumin LDL Cholesterol Direct PTH Intact Salicylates Acetaminophen Crossmatch 04/18/19 04/18/19 04/18/19 07:19 12:16 17:09 WBC RBC Hgb Hct MCV MCH MCHC RDW Lymph % (Auto) [place] % (Auto) Eos % (Auto) Lymph # [place] # Eos # Seg Neutrophils % Seg Neuts % (Manual) Lymphocytes % (Manual) Eosinophils % (Manual) Seg Neutrophils # Lymphocytes # (Manual) Eosinophils # (Manual) PT INR D-Dimer POC ABG pH POC ABG pCO2 POC ABG pO2 ABG pO2 ABG HCO3 ABG Base Excess ABG Hemoglobin Oxyhemoglobin Sodium Potassium Chloride Carbon Dioxide BUN 41 H Creatinine 2.9 H Glucose 122 H POC Glucose 125 H 131 H Calcium Phosphorus Magnesium ALT Alkaline Phosphatase Total Creatine Kinase CK-MB (CK-2) Rel Index Troponin T Albumin LDL Cholesterol Direct PTH Intact Salicylates Acetaminophen Crossmatch 04/18/19 04/19/19 04/19/19 23:57 05:55 11:35 WBC RBC Hgb Hct MCV MCH MCHC RDW Lymph % (Auto) [place] % (Auto) Eos % (Auto) Lymph # [place] # Eos # Seg Neutrophils % Seg Neuts % (Manual) Lymphocytes % (Manual) Eosinophils % (Manual) Seg Neutrophils # Lymphocytes # (Manual) Eosinophils # (Manual) PT INR D-Dimer POC ABG pH POC ABG pCO2 POC ABG pO2 ABG pO2 ABG HCO3 ABG Base Excess ABG Hemoglobin Oxyhemoglobin Sodium Potassium Chloride Carbon Dioxide BUN Creatinine Glucose POC Glucose 159 H 144 H 177 H Calcium Phosphorus Magnesium ALT Alkaline Phosphatase Total Creatine Kinase CK-MB (CK-2) Rel Index Troponin T Albumin LDL Cholesterol Direct PTH Intact Salicylates Acetaminophen Crossmatch 04/19/19 04/20/19 04/20/19 16:36 02:05 06:28 WBC RBC Hgb Hct MCV MCH MCHC RDW Lymph % (Auto) [place] % (Auto) Eos % (Auto) Lymph # [place] # Eos # Seg Neutrophils % Seg Neuts % (Manual) Lymphocytes % (Manual) Eosinophils % (Manual) Seg Neutrophils # Lymphocytes # (Manual) Eosinophils # (Manual) PT INR D-Dimer POC ABG pH POC ABG pCO2 POC ABG pO2 ABG pO2 ABG HCO3 ABG Base Excess ABG Hemoglobin Oxyhemoglobin Sodium Potassium Chloride Carbon Dioxide BUN Creatinine Glucose POC Glucose 134 H 142 H 132 H Calcium Phosphorus Magnesium ALT Alkaline Phosphatase Total Creatine Kinase CK-MB (CK-2) Rel Index Troponin T Albumin LDL Cholesterol Direct PTH Intact Salicylates Acetaminophen Crossmatch 04/20/19 04/20/19 04/21/19 12:37 23:34 05:59 WBC RBC Hgb Hct MCV MCH MCHC RDW Lymph % (Auto) [place] % (Auto) Eos % (Auto) Lymph # [place] # Eos # Seg Neutrophils % Seg Neuts % (Manual) Lymphocytes % (Manual) Eosinophils % (Manual) Seg Neutrophils # Lymphocytes # (Manual) Eosinophils # (Manual) PT INR D-Dimer POC ABG pH POC ABG pCO2 POC ABG pO2 ABG pO2 ABG HCO3 ABG Base Excess ABG Hemoglobin Oxyhemoglobin Sodium Potassium Chloride Carbon Dioxide BUN Creatinine Glucose POC Glucose 163 H 166 H 140 H Calcium Phosphorus Magnesium ALT Alkaline Phosphatase Total Creatine Kinase CK-MB (CK-2) Rel Index Troponin T Albumin LDL Cholesterol Direct PTH Intact Salicylates Acetaminophen Crossmatch 04/21/19 04/21/19 04/21/19 12:07 17:22 23:43 WBC RBC Hgb Hct MCV MCH MCHC RDW Lymph % (Auto) [place] % (Auto) Eos % (Auto) Lymph # [place] # Eos # Seg Neutrophils % Seg Neuts % (Manual) Lymphocytes % (Manual) Eosinophils % (Manual) Seg Neutrophils # Lymphocytes # (Manual) Eosinophils # (Manual) PT INR D-Dimer POC ABG pH POC ABG pCO2 POC ABG pO2 ABG pO2 ABG HCO3 ABG Base Excess ABG Hemoglobin Oxyhemoglobin Sodium Potassium Chloride Carbon Dioxide BUN Creatinine Glucose POC Glucose 135 H 141 H 138 H Calcium Phosphorus Magnesium ALT Alkaline Phosphatase Total Creatine Kinase CK-MB (CK-2) Rel Index Troponin T Albumin LDL Cholesterol Direct PTH Intact Salicylates Acetaminophen Crossmatch 04/22/19 04/22/19 04/22/19 05:12 18:24 23:49 WBC RBC Hgb Hct MCV MCH MCHC RDW Lymph % (Auto) [place] % (Auto) Eos % (Auto) Lymph # [place] # Eos # Seg Neutrophils % Seg Neuts % (Manual) Lymphocytes % (Manual) Eosinophils % (Manual) Seg Neutrophils # Lymphocytes # (Manual) Eosinophils # (Manual) PT INR D-Dimer POC ABG pH POC ABG pCO2 POC ABG pO2 ABG pO2 ABG HCO3 ABG Base Excess ABG Hemoglobin Oxyhemoglobin Sodium Potassium Chloride Carbon Dioxide BUN Creatinine Glucose POC Glucose 141 H 137 H 142 H Calcium Phosphorus Magnesium ALT Alkaline Phosphatase Total Creatine Kinase CK-MB (CK-2) Rel Index Troponin T Albumin LDL Cholesterol Direct PTH Intact Salicylates Acetaminophen Crossmatch 04/23/19 04/23/19 04/23/19 05:53 08:13 11:58 WBC RBC Hgb Hct MCV MCH MCHC RDW Lymph % (Auto) [place] % (Auto) Eos % (Auto) Lymph # [place] # Eos # Seg Neutrophils % Seg Neuts % (Manual) Lymphocytes % (Manual) Eosinophils % (Manual) Seg Neutrophils # Lymphocytes # (Manual) Eosinophils # (Manual) PT INR D-Dimer POC ABG pH POC ABG pCO2 POC ABG pO2 ABG pO2 ABG HCO3 ABG Base Excess ABG Hemoglobin Oxyhemoglobin Sodium Potassium Chloride Carbon Dioxide BUN Creatinine Glucose POC Glucose 132 H 154 H 165 H Calcium Phosphorus Magnesium ALT Alkaline Phosphatase Total Creatine Kinase CK-MB (CK-2) Rel Index Troponin T Albumin LDL Cholesterol Direct PTH Intact Salicylates Acetaminophen Crossmatch 04/23/19 04/24/19 04/24/19 16:28 00:28 07:00 WBC RBC Hgb Hct MCV MCH MCHC RDW Lymph % (Auto) [place] % (Auto) Eos % (Auto) Lymph # [place] # Eos # Seg Neutrophils % Seg Neuts % (Manual) Lymphocytes % (Manual) Eosinophils % (Manual) Seg Neutrophils # Lymphocytes # (Manual) Eosinophils # (Manual) PT INR D-Dimer POC ABG pH POC ABG pCO2 POC ABG pO2 ABG pO2 ABG HCO3 ABG Base Excess ABG Hemoglobin Oxyhemoglobin Sodium Potassium Chloride Carbon Dioxide BUN Creatinine Glucose POC Glucose 136 H 140 H 141 H Calcium Phosphorus Magnesium ALT Alkaline Phosphatase Total Creatine Kinase CK-MB (CK-2) Rel Index Troponin T Albumin LDL Cholesterol Direct PTH Intact Salicylates Acetaminophen Crossmatch 04/24/19 04/24/19 04/25/19 12:38 18:57 00:38 WBC RBC Hgb Hct MCV MCH MCHC RDW Lymph % (Auto) [place] % (Auto) Eos % (Auto) Lymph # [place] # Eos # Seg Neutrophils % Seg Neuts % (Manual) Lymphocytes % (Manual) Eosinophils % (Manual) Seg Neutrophils # Lymphocytes # (Manual) Eosinophils # (Manual) PT INR D-Dimer POC ABG pH POC ABG pCO2 POC ABG pO2 ABG pO2 ABG HCO3 ABG Base Excess ABG Hemoglobin Oxyhemoglobin Sodium Potassium Chloride Carbon Dioxide BUN Creatinine Glucose POC Glucose 152 H 166 H 128 H Calcium Phosphorus Magnesium ALT Alkaline Phosphatase Total Creatine Kinase CK-MB (CK-2) Rel Index Troponin T Albumin LDL Cholesterol Direct PTH Intact Salicylates Acetaminophen Crossmatch 04/25/19 04/25/19 04/25/19 05:44 13:43 18:34 WBC RBC Hgb Hct MCV MCH MCHC RDW Lymph % (Auto) [place] % (Auto) Eos % (Auto) Lymph # [place] # Eos # Seg Neutrophils % Seg Neuts % (Manual) Lymphocytes % (Manual) Eosinophils % (Manual) Seg Neutrophils # Lymphocytes # (Manual) Eosinophils # (Manual) PT INR D-Dimer POC ABG pH POC ABG pCO2 POC ABG pO2 ABG pO2 ABG HCO3 ABG Base Excess ABG Hemoglobin Oxyhemoglobin Sodium Potassium Chloride Carbon Dioxide BUN Creatinine Glucose POC Glucose 153 H 186 H 124 H Calcium Phosphorus Magnesium ALT Alkaline Phosphatase Total Creatine Kinase CK-MB (CK-2) Rel Index Troponin T Albumin LDL Cholesterol Direct PTH Intact Salicylates Acetaminophen Crossmatch 04/26/19 04/26/19 04/26/19 00:59 05:52 10:12 WBC 11.5 H RBC 2.84 L Hgb 7.4 L Hct 23.3 L MCV 82 L MCH 26 L MCHC RDW 20.3 H Lymph % (Auto) 7.5 L [place] % (Auto) 7.5 H Eos % (Auto) 5.3 H Lymph # 0.9 L [place] # 0.9 H Eos # 0.6 H Seg Neutrophils % 79.2 H Seg Neuts % (Manual) Lymphocytes % (Manual) Eosinophils % (Manual) Seg Neutrophils # 9.1 H Lymphocytes # (Manual) Eosinophils # (Manual) PT INR D-Dimer POC ABG pH POC ABG pCO2 POC ABG pO2 ABG pO2 ABG HCO3 ABG Base Excess ABG Hemoglobin Oxyhemoglobin Sodium Potassium Chloride Carbon Dioxide BUN Creatinine Glucose POC Glucose 163 H 146 H Calcium Phosphorus Magnesium ALT Alkaline Phosphatase Total Creatine Kinase CK-MB (CK-2) Rel Index Troponin T Albumin LDL Cholesterol Direct PTH Intact Salicylates Acetaminophen Crossmatch 04/26/19 04/26/19 04/26/19 10:12 12:15 19:00 WBC RBC Hgb Hct MCV MCH MCHC RDW Lymph % (Auto) [place] % (Auto) Eos % (Auto) Lymph # [place] # Eos # Seg Neutrophils % Seg Neuts % (Manual) Lymphocytes % (Manual) Eosinophils % (Manual) Seg Neutrophils # Lymphocytes # (Manual) Eosinophils # (Manual) PT INR D-Dimer POC ABG pH POC ABG pCO2 POC ABG pO2 ABG pO2 ABG HCO3 ABG Base Excess ABG Hemoglobin Oxyhemoglobin Sodium 130 L Potassium Chloride 87.4 L Carbon Dioxide BUN 93 H Creatinine 4.2 H Glucose 140 H POC Glucose 155 H 179 H Calcium Phosphorus Magnesium ALT Alkaline Phosphatase Total Creatine Kinase CK-MB (CK-2) Rel Index Troponin T Albumin LDL Cholesterol Direct PTH Intact Salicylates Acetaminophen Crossmatch 04/27/19 04/27/19 00:23 06:34 WBC RBC Hgb Hct MCV MCH MCHC RDW Lymph % (Auto) [place] % (Auto) Eos % (Auto) Lymph # [place] # Eos # Seg Neutrophils % Seg Neuts % (Manual) Lymphocytes % (Manual) Eosinophils % (Manual) Seg Neutrophils # Lymphocytes # (Manual) Eosinophils # (Manual) PT INR D-Dimer POC ABG pH POC ABG pCO2 POC ABG pO2 ABG pO2 ABG HCO3 ABG Base Excess ABG Hemoglobin Oxyhemoglobin Sodium Potassium Chloride Carbon Dioxide BUN Creatinine Glucose POC Glucose 158 H 140 H Calcium Phosphorus Magnesium ALT Alkaline Phosphatase Total Creatine Kinase CK-MB (CK-2) Rel Index Troponin T Albumin LDL Cholesterol Direct PTH Intact Salicylates Acetaminophen Crossmatch
--- NOTE | 2019-04-27 12:00 | Progress Note ---
Assessment and Plan Assessment: * End stage renal disease (outpatient TTS schedule) * Acute hypoxic respiratory failure on mechanical ventilation * Atrial fibrillation * History of CVA * Anemia secondary to ESRD * Secondary hyperparathyroidism Plan * Continue HD MWF schedule for now while inpatient * UF as tolerated; reviewed pulmonary notes and CXR * AVG in use. A * Empiric abx per ID/primary team * Nutrition per primary team * Dose medications for renal function * Epogen TID Overall prognosis remains poor; will continue to follow for ESRD needs while inpatient. Subjective Date of service: 04/27/19 Principal diagnosis: Respiratory failure, acute on chronic systolic HF, ESRD Interval history: no acute events Objective - Exam Narrative Exam: General appearance: chronically ill, intubated, frail EENT: normocephalic Neck: ETT in place Respiratory: coarse mechanical breath sounds bilaterally Cardiology: regular, S1S2, no edema Gastrointestinal: PEG and colostomy noted Integumentary: warm and dry Psychiatric: unable to assess - Vital Signs Vital signs: Vital Signs - 12hr 04/27/19 04/27/19 04/27/19 03:42 03:49 07:31 Temperature 98.6 F 98.6 F Pulse Rate 101 H 96 H 91 H Pulse Rate [ Posterior Bilateral Throughout] Respiratory 18 18 Rate Respiratory Rate [Posterior Bilateral Throughout] Blood Pressure 127/62 121/58 O2 Sat by Pulse 100 98 Oximetry O2 Sat by Pulse Oximetry [ Anterior Bilateral Throughout] O2 Sat by Pulse Oximetry [ Assessment] 04/27/19 04/27/19 04/27/19 07:48 07:49 09:52 Temperature 98.1 F Pulse Rate 86 Pulse Rate [ 84 Posterior Bilateral Throughout] Respiratory 20 Rate Respiratory 18 Rate [Posterior Bilateral Throughout] Blood Pressure 103/59 O2 Sat by Pulse 95 Oximetry O2 Sat by Pulse 100 Oximetry [ Anterior Bilateral Throughout] O2 Sat by Pulse 96 Oximetry [ Assessment] 04/27/19 04/27/19 04/27/19 10:00 10:15 10:30 Temperature Pulse Rate 88 84 83 Pulse Rate [ Posterior Bilateral Throughout] Respiratory Rate Respiratory Rate [Posterior Bilateral Throughout] Blood Pressure 115/59 102/57 105/59 O2 Sat by Pulse Oximetry O2 Sat by Pulse Oximetry [ Anterior Bilateral Throughout] O2 Sat by Pulse Oximetry [ Assessment] 04/27/19 04/27/19 04/27/19 10:45 11:00 11:15 Temperature Pulse Rate 86 86 83 Pulse Rate [ Posterior Bilateral Throughout] Respiratory Rate Respiratory Rate [Posterior Bilateral Throughout] Blood Pressure 95/59 123/66 116/66 O2 Sat by Pulse Oximetry O2 Sat by Pulse Oximetry [ Anterior Bilateral Throughout] O2 Sat by Pulse Oximetry [ Assessment] 04/27/19 11:30 Temperature Pulse Rate 82 Pulse Rate [ Posterior Bilateral Throughout] Respiratory Rate Respiratory Rate [Posterior Bilateral Throughout] Blood Pressure 111/62 O2 Sat by Pulse Oximetry O2 Sat by Pulse Oximetry [ Anterior Bilateral Throughout] O2 Sat by Pulse Oximetry [ Assessment] - Lab 04/26/19 10:12 04/26/19 10:12 Most recent lab results ABG pH 7.424 pH Units (7.350-7.450) 03/19/19 04:23 ABG pCO2 48.0 mm Hg 03/19/19 04:23 ABG pO2 78.3 mm Hg (80.0-90.0) L 03/19/19 04:23 ABG HCO3 30.7 mmol/L (20.0-26.0) H 03/19/19 04:23 ABG O2 Saturation 97.0 % (95.0-99.0) 03/19/19 04:23 Calcium 10.0 mg/dL (8.4-10.2) 04/26/19 10:12 Phosphorus 4.30 mg/dL (2.5-4.5) D 03/31/19 10:26 Magnesium 2.70 mg/dL (1.7-2.3) H 03/30/19 10:13 Medications & Allergies - Medications Allergies/Adverse Reactions: Allergies haloperidol [From Haldol] Adverse Reaction (Verified 03/13/18 12:10) Unknown haloperidol lactate [From Haldol] Adverse Reaction (Verified 03/13/18 12:10) Unknown Home Medications: Home Medications Medication Instructions Recorded Confirmed Last Taken Type risperiDONE [RisperDAL] 1 mg PO QAM 03/13/18 02/21/19 Unknown History Sertraline [Zoloft] 100 mg PO QDAY 08/26/18 02/21/19 Unknown History Polyethylene Glycol 3350 [Miralax 17 gm PO QDAY #30 packet 11/05/18 02/21/19 Unknown Rx 3350] Aspirin EC [Halfprin EC] 81 mg PO DAILY #30 11/19/18 02/21/19 Unknown Rx Docusate Sodium [Colace CAP] 100 mg PO BID #60 11/19/18 02/21/19 Unknown Rx Folic Acid [Folvite] 1 mg PO DAILY #30 tab 11/19/18 02/21/19 Unknown Rx Famotidine [Pepcid] 20 mg PO DAILY tablet 12/08/18 02/21/19 Unknown Rx Gabapentin [Neurontin] 100 mg PO QHS capsule 12/08/18 02/21/19 Unknown Rx Metoprolol [Lopressor TAB] 50 mg PO BID 30 Days tablet 12/08/18 02/21/19 Un known Rx Sevelamer Carbonate [Renvela] 800 mg PO TIDWM tablet 12/08/18 02/21/19 Unknown Rx hydrALAZINE [Apresoline TAB] 100 mg PO Q8HR #120 tablet 12/08/18 02/21/19 Unknown Rx Acetaminophen [Acetaminophen TAB] 650 mg PO Q12H PRN 12/15/18 02/21/19 Unknown History Glucagon,Human Recombinant 1 mg IJ Q15MIN PRN 12/15/18 02/21/19 Unknown History [Glucagon Emergency Kit] Insulin Aspart [NovoLOG 100 See Protocol SQ QWEEK 12/15/18 02/21/19 Unknown History UNITS/ML VIAL] Active Medications: Generic Name Dose Route Start Last Admin Trade Name Freq PRN Reason Stop Dose Admin Albuterol/Ipratropium 1 ampul 02/24/19 20:00 04/27/19 07:48 Duoneb *Not For Prn Use* IH 1 ampul TIDRT SANCHEZ Administration Lipase/Protease/Amylase 1 each 04/10/19 15:16 Pancrejewel Barrientos 10,500 Unit FEEDTUBE PRN PRN For Clogged Feeding Tube Epoetin Solitario 20,000 unit 03/24/19 11:17 04/24/19 15:34 Procrit IV 20,000 unit UMA PRN Administration hemodialysis Famotidine 20 mg 02/23/19 10:00 04/27/19 09:42 Pepcid PO Not Given DAILY [facility] Insulin Human Regular 0 units 02/26/19 12:00 04/27/19 06:38 Humulin R SUB-Q Not Given Q6HR [facility] Protocol Metoprolol Tartrate 2.5 mg 02/28/19 12:06 03/15/19 05:15 Lopressor IV 2.5 mg Q4HR PRN Administration Tachycardia Risperidone 1 mg 02/25/19 13:00 04/27/19 09:42 Risperdal PO Not Given DAILY SANCHEZ Sertraline HCl 100 mg 02/25/19 13:00 04/27/19 09:42 Zoloft PO Not Given DAILY SANCHEZ Simple Syrup 15 ml 04/10/19 15:16 Simple Syrup FEEDTUBE PRN PRN Hypoglycemia Simple Syrup 30 ml 04/10/19 15:16 Simple Syrup FEEDTUBE PRN PRN Hypoglycemia Sodium Bicarbonate 325 mg 04/10/19 15:16 Sodium Bicarbonate FEEDTUBE PRN PRN For Clogged Feeding Tube Sodium Hypochlorite 1 applic 04/01/19 13:00 04/26/19 21:24 Dakin's Half Strength TP 1 applicatio BID SANCHEZ Administration
[2019-04-27] MEDS: EPOETIN ALFA 20,000 UNIT/1 ML INJ IV PRN (12:56)
[2019-04-27] MEDS: SODIUM HYPOCHLORITE, DAKIN'S 1/2 STRENGTH (0.25%) 473 ML TOPICAL SOLN TP SCH ×2 (14:52→22:00)
[2019-04-28] MEDS: INSULIN REGULAR, HUMAN 100 UNITS/1 ML SUB-Q SCH ×5 (00:19→18:35)
[2019-04-28] MEDS: IPRATROPIUM/ALBUTEROL SULFATE 3 ML AMPUL.NEB IH SCH ×3 (08:28→20:40)
[2019-04-28] MEDS: SODIUM HYPOCHLORITE, DAKIN'S 1/2 STRENGTH (0.25%) 473 ML TOPICAL SOLN TP SCH (11:11)
--- NOTE | 2019-04-28 11:40 | Progress Note ---
Assessment and Plan 63 y/o male with multiple medical issues admitted with altered mental status, acute respiratory failure requiring mechanical ventilation 1. Daily PMV trials. Hopefully will lead to capping and nasal cannula at some point. then could consider decannulation. 2. HD per renal 3. PT/OT if possible 4. CM working on placement Subjective Date of service: 04/28/19 Principal diagnosis: Respiratory failure, acute on chronic systolic HF, ESRD Interval history: No acute events. Pulm status is the same. Objective Vital Signs - 12hr 04/27/19 04/27/19 04/28/19 23:45 23:48 05:03 Temperature 98.7 F Pulse Rate 98 H 96 H 98 H Pulse Rate [ Anterior Bilateral Throughout] Pulse Rate [ Posterior Bilateral Throughout] Respiratory 18 18 Rate Respiratory Rate [Anterior Bilateral Throughout] Respiratory Rate [Posterior Bilateral Throughout] Blood Pressure 84/62 118/53 Blood Pressure 126/63 [Right] O2 Sat by Pulse 99 100 98 Oximetry O2 Sat by Pulse Oximetry [ Assessment] 04/28/19 04/28/19 04/28/19 05:04 06:02 07:41 Temperature 97.7 F 98.3 F Pulse Rate Pulse Rate [ Anterior Bilateral Throughout] Pulse Rate [ Posterior Bilateral Throughout] Respiratory 18 Rate Respiratory Rate [Anterior Bilateral Throughout] Respiratory Rate [Posterior Bilateral Throughout] Blood Pressure 114/59 Blood Pressure [Right] O2 Sat by Pulse 96 Oximetry O2 Sat by Pulse 96 Oximetry [ Assessment] 04/28/19 04/28/19 04/28/19 08:32 08:34 08:44 Temperature Pulse Rate Pulse Rate [ 99 H Anterior Bilateral Throughout] Pulse Rate [ 97 H Posterior Bilateral Throughout] Respiratory Rate Respiratory 18 Rate [Anterior Bilateral Throughout] Respiratory 20 Rate [Posterior Bilateral Throughout] Blood Pressure Blood Pressure [Right] O2 Sat by Pulse 98 Oximetry O2 Sat by Pulse 98 Oximetry [ Assessment] 04/28/19 11:27 Temperature Pulse Rate 98 H Pulse Rate [ Anterior Bilateral Throughout] Pulse Rate [ Posterior Bilateral Throughout] Respiratory Rate Respiratory Rate [Anterior Bilateral Throughout] Respiratory Rate [Posterior Bilateral Throughout] Blood Pressure 116/57 Blood Pressure [Right] O2 Sat by Pulse 97 Oximetry O2 Sat by Pulse Oximetry [ Assessment] Constitutional: no acute distress, alert Eyes: non-icteric ENT: oropharynx moist Neck: supple Effort: normal Ascultation: Bilateral: diminished breath sounds, other (coarse BS bilaterally) Percussion: Bilateral: not dull Cardiovascular: regular rate and rhythm (no mrg) Gastrointestinal: normoactive bowel sounds, soft, non-tender, non-distended, other (ostomy in place, brown stool) Extremities: no cyanosis, no edema, pink and warm Neurologic: other (mild weakness LUE, o/w nonfocal) Psychiatric: other (unable to assess) CBC and BMP: 04/26/19 10:12 04/26/19 10:12 ABG, PT/INR, D-dimer: ABG POC ABG pH 7.510 (7.35-7.45) H 03/18/19 06:38 ABG pH 7.424 pH Units (7.350-7.450) 03/19/19 04:23 POC ABG pCO2 38.9 (35-45) 03/18/19 06:38 ABG pCO2 48.0 mm Hg 03/19/19 04:23 POC ABG pO2 164 (80-105) H 03/18/19 06:38 ABG pO2 78.3 mm Hg (80.0-90.0) L 03/19/19 04:23 POC ABG HCO3 31.0 (22-26 mml/L) 03/18/19 06:38 POC ABG Total CO2 32 (23-27mmol/L) 03/18/19 06:38 POC ABG O2 Sat 100 03/18/19 06:38 ABG O2 Saturation 97.0 % (95.0-99.0) 03/19/19 04:23 PT/INR, D-dimer PT 16.3 Sec. (12.2-14.9) H 03/01/19 09:39 INR 1.35 (0.87-1.13) H 03/01/19 09:39 D-Dimer 2987.82 ng/mlDDU (0-234) H 02/22/19 05:54 Abnormal lab findings: Abnormal Labs 02/21/19 02/21/19 02/21/19 18:30 18:30 18:30 WBC RBC 3.26 L Hgb 8.8 L Hct 29.0 L MCV MCH 27 L MCHC 30 L RDW 19.1 H Lymph % (Auto) 6.1 L Riley % (Auto) Eos % (Auto) Lymph # 0.4 L Riley # Eos # Seg Neutrophils % 86.2 H Seg Neuts % (Manual) Lymphocytes % (Manual) Eosinophils % (Manual) Seg Neutrophils # Lymphocytes # (Manual) Eosinophils # (Manual) PT INR D-Dimer POC ABG pH POC ABG pCO2 POC ABG pO2 ABG pO2 ABG HCO3 ABG Base Excess ABG Hemoglobin Oxyhemoglobin Sodium 133 L Potassium 3.3 L Chloride 93.1 L Carbon Dioxide 33 H BUN Creatinine Glucose 161 H POC Glucose Calcium Phosphorus Magnesium ALT Alkaline Phosphatase 136 H Total Creatine Kinase 37 L CK-MB (CK-2) Rel Index Troponin T 0.192 H* Albumin 2.4 L LDL Cholesterol Direct 36 L PTH Intact Salicylates Acetaminophen Crossmatch 02/21/19 02/21/19 02/21/19 18:42 20:04 20:04 WBC RBC Hgb Hct MCV MCH MCHC RDW Lymph % (Auto) Riley % (Auto) Eos % (Auto) Lymph # Riley # Eos # Seg Neutrophils % Seg Neuts % (Manual) Lymphocytes % (Manual) Eosinophils % (Manual) Seg Neutrophils # Lymphocytes # (Manual) Eosinophils # (Manual) PT INR D-Dimer POC ABG pH POC ABG pCO2 56.7 H POC ABG pO2 291 H ABG pO2 ABG HCO3 ABG Base Excess ABG Hemoglobin Oxyhemoglobin Sodium Potassium Chloride Carbon Dioxide BUN Creatinine Glucose POC Glucose Calcium Phosphorus Magnesium ALT Alkaline Phosphatase Total Creatine Kinase CK-MB (CK-2) Rel Index Troponin T Albumin LDL Cholesterol Direct PTH Intact Salicylates < 0.3 L Acetaminophen < 5.0 L Crossmatch 02/21/19 02/22/19 02/22/19 22:35 03:42 03:42 WBC RBC 3.20 L Hgb 8.8 L Hct 27.6 L MCV MCH MCHC RDW 18.9 H Lymph % (Auto) 7.4 L Riley % (Auto) Eos % (Auto) Lymph # 0.7 L Riley # Eos # Seg Neutrophils % 84.7 H Seg Neuts % (Manual) Lymphocytes % (Manual) Eosinophils % (Manual) Seg Neutrophils # Lymphocytes # (Manual) Eosinophils # (Manual) PT INR D-Dimer POC ABG pH POC ABG pCO2 POC ABG pO2 ABG pO2 ABG HCO3 ABG Base Excess ABG Hemoglobin Oxyhemoglobin Sodium 134 L Potassium 2.6 L* D Chloride Carbon Dioxide BUN Creatinine Glucose POC Glucose Calcium Phosphorus Magnesium ALT Alkaline Phosphatase Total Creatine Kinase CK-MB (CK-2) Rel Index 5.2 H Troponin T 0.202 H* Albumin LDL Cholesterol Direct PTH Intact Salicylates Acetaminophen Crossmatch 02/22/19 02/22/19 02/22/19 03:42 05:54 09:04 WBC RBC Hgb Hct MCV MCH MCHC RDW Lymph % (Auto) Riley % (Auto) Eos % (Auto) Lymph # Riley # Eos # Seg Neutrophils % Seg Neuts % (Manual) Lymphocytes % (Manual) Eosinophils % (Manual) Seg Neutrophils # Lymphocytes # (Manual) Eosinophils # (Manual) PT INR D-Dimer 2987.82 H POC ABG pH 7.451 H POC ABG pCO2 POC ABG pO2 ABG pO2 ABG HCO3 ABG Base Excess ABG Hemoglobin Oxyhemoglobin Sodium Potassium Chloride Carbon Dioxide BUN Creatinine Glucose POC Glucose Calcium Phosphorus Magnesium ALT Alkaline Phosphatase Total Creatine Kinase CK-MB (CK-2) Rel Index 5.7 H Troponin T 0.193 H* Albumin LDL Cholesterol Direct PTH Intact Salicylates Acetaminophen Crossmatch 02/22/19 02/22/19 02/23/19 10:36 23:56 00:52 WBC RBC Hgb Hct MCV MCH MCHC RDW Lymph % (Auto) Riley % (Auto) Eos % (Auto) Lymph # Riley # Eos # Seg Neutrophils % Seg Neuts % (Manual) Lymphocytes % (Manual) Eosinophils % (Manual) Seg Neutrophils # Lymphocytes # (Manual) Eosinophils # (Manual) PT INR D-Dimer POC ABG pH POC ABG pCO2 POC ABG pO2 ABG pO2 ABG HCO3 ABG Base Excess ABG Hemoglobin Oxyhemoglobin Sodium Potassium 3.1 L Chloride Carbon Dioxide BUN Creatinine Glucose POC Glucose 58 L 111 H Calcium Phosphorus Magnesium ALT Alkaline Phosphatase Total Creatine Kinase CK-MB (CK-2) Rel Index Troponin T Albumin LDL Cholesterol Direct PTH Intact Salicylates Acetaminophen Crossmatch 02/23/19 02/23/19 02/23/19 05:00 06:35 14:26 WBC RBC Hgb Hct MCV MCH MCHC RDW Lymph % (Auto) Riley % (Auto) Eos % (Auto) Lymph # Riley # Eos # Seg Neutrophils % Seg Neuts % (Manual) Lymphocytes % (Manual) Eosinophils % (Manual) Seg Neutrophils # Lymphocytes # (Manual) Eosinophils # (Manual) PT INR D-Dimer POC ABG pH POC ABG pCO2 POC ABG pO2 ABG pO2 ABG HCO3 ABG Base Excess ABG Hemoglobin Oxyhemoglobin Sodium 135 L Potassium 3.1 L Chloride Carbon Dioxide BUN 21 H Creatinine 2.0 H Glucose 57 L POC Glucose 64 L 62 L Calcium Phosphorus Magnesium ALT Alkaline Phosphatase Total Creatine Kinase CK-MB (CK-2) Rel Index Troponin T Albumin LDL Cholesterol Direct PTH Intact Salicylates Acetaminophen Crossmatch 02/24/19 02/24/19 02/24/19 02:11 04:12 04:55 WBC RBC 2.84 L Hgb 7.8 L Hct 24.5 L MCV MCH MCHC RDW 19.5 H Lymph % (Auto) Riley % (Auto) Eos % (Auto) Lymph # Riley # Eos # Seg Neutrophils % Seg Neuts % (Manual) Lymphocytes % (Manual) Eosinophils % (Manual) Seg Neutrophils # Lymphocytes # (Manual) Eosinophils # (Manual) PT INR D-Dimer POC ABG pH 7.511 H POC ABG pCO2 33.9 L POC ABG pO2 62 L ABG pO2 ABG HCO3 ABG Base Excess ABG Hemoglobin Oxyhemoglobin Sodium Potassium Chloride Carbon Dioxide BUN Creatinine Glucose POC Glucose 69 L Calcium Phosphorus Magnesium ALT Alkaline Phosphatase Total Creatine Kinase CK-MB (CK-2) Rel Index Troponin T Albumin LDL Cholesterol Direct PTH Intact Salicylates Acetaminophen Crossmatch 02/24/19 02/24/19 02/25/19 04:55 05:41 04:45 WBC RBC Hgb Hct MCV MCH MCHC RDW Lymph % (Auto) Riley % (Auto) Eos % (Auto) Lymph # Riley # Eos # Seg Neutrophils % Seg Neuts % (Manual) Lymphocytes % (Manual) Eosinophils % (Manual) Seg Neutrophils # Lymphocytes # (Manual) Eosinophils # (Manual) PT INR D-Dimer POC ABG pH 7.466 H POC ABG pCO2 POC ABG pO2 75 L ABG pO2 ABG HCO3 ABG Base Excess ABG Hemoglobin Oxyhemoglobin Sodium Potassium Chloride Carbon Dioxide BUN Creatinine 1.8 H Glucose 73 L POC Glucose 127 H Calcium Phosphorus Magnesium ALT Alkaline Phosphatase Total Creatine Kinase CK-MB (CK-2) Rel Index Troponin T Albumin LDL Cholesterol Direct PTH Intact Salicylates Acetaminophen Crossmatch 02/25/19 02/25/19 02/26/19 16:34 21:33 03:45 WBC RBC 2.96 L Hgb 8.0 L Hct 25.8 L MCV MCH 27 L MCHC 31 L RDW 20.0 H Lymph % (Auto) Riley % (Auto) Eos % (Auto) Lymph # Riley # Eos # Seg Neutrophils % Seg Neuts % (Manual) Lymphocytes % (Manual) Eosinophils % (Manual) Seg Neutrophils # Lymphocytes # (Manual) Eosinophils # (Manual) PT INR D-Dimer POC ABG pH POC ABG pCO2 POC ABG pO2 ABG pO2 ABG HCO3 ABG Base Excess ABG Hemoglobin Oxyhemoglobin Sodium Potassium Chloride Carbon Dioxide BUN Creatinine Glucose POC Glucose 141 H 106 H Calcium Phosphorus Magnesium ALT Alkaline Phosphatase Total Creatine Kinase CK-MB (CK-2) Rel Index Troponin T Albumin LDL Cholesterol Direct PTH Intact Salicylates Acetaminophen Crossmatch 02/26/19 02/26/19 02/26/19 03:45 04:13 07:53 WBC RBC Hgb Hct MCV MCH MCHC RDW Lymph % (Auto) Riley % (Auto) Eos % (Auto) Lymph # Riley # Eos # Seg Neutrophils % Seg Neuts % (Manual) Lymphocytes % (Manual) Eosinophils % (Manual) Seg Neutrophils # Lymphocytes # (Manual) Eosinophils # (Manual) PT INR D-Dimer POC ABG pH 7.470 H POC ABG pCO2 POC ABG pO2 ABG pO2 ABG HCO3 ABG Base Excess ABG Hemoglobin Oxyhemoglobin Sodium Potassium Chloride Carbon Dioxide BUN Creatinine 1.8 H Glucose POC Glucose 110 H Calcium Phosphorus Magnesium ALT Alkaline Phosphatase Total Creatine Kinase CK-MB (CK-2) Rel Index Troponin T Albumin LDL Cholesterol Direct PTH Intact Salicylates Acetaminophen Crossmatch 02/26/19 02/26/19 02/27/19 11:56 17:43 00:12 WBC RBC Hgb Hct MCV MCH MCHC RDW Lymph % (Auto) Riley % (Auto) Eos % (Auto) Lymph # Riley # Eos # Seg Neutrophils % Seg Neuts % (Manual) Lymphocytes % (Manual) Eosinophils % (Manual) Seg Neutrophils # Lymphocytes # (Manual) Eosinophils # (Manual) PT INR D-Dimer POC ABG pH POC ABG pCO2 POC ABG pO2 ABG pO2 ABG HCO3 ABG Base Excess ABG Hemoglobin Oxyhemoglobin Sodium Potassium Chloride Carbon Dioxide BUN Creatinine Glucose POC Glucose 112 H 127 H 127 H Calcium Phosphorus Magnesium ALT Alkaline Phosphatase Total Creatine Kinase CK-MB (CK-2) Rel Index Troponin T Albumin LDL Cholesterol Direct PTH Intact Salicylates Acetaminophen Crossmatch 08/04/0902/27/19 02/27/19 04:35 13:15 18:02 WBC RBC Hgb Hct MCV MCH MCHC RDW Lymph % (Auto) Riley % (Auto) Eos % (Auto) Lymph # Riley # Eos # Seg Neutrophils % Seg Neuts % (Manual) Lymphocytes % (Manual) Eosinophils % (Manual) Seg Neutrophils # Lymphocytes # (Manual) Eosinophils # (Manual) PT INR D-Dimer POC ABG pH 7.483 H POC ABG pCO2 POC ABG pO2 61 L ABG pO2 ABG HCO3 ABG Base Excess ABG Hemoglobin Oxyhemoglobin Sodium Potassium Chloride Carbon Dioxide BUN Creatinine Glucose POC Glucose 143 H 106 H Calcium Phosphorus Magnesium ALT Alkaline Phosphatase Total Creatine Kinase CK-MB (CK-2) Rel Index Troponin T Albumin LDL Cholesterol Direct PTH Intact Salicylates Acetaminophen Crossmatch 02/28/19 02/28/19 02/28/19 05:50 11:59 17:52 WBC RBC Hgb Hct MCV MCH MCHC RDW Lymph % (Auto) Riley % (Auto) Eos % (Auto) Lymph # Riley # Eos # Seg Neutrophils % Seg Neuts % (Manual) Lymphocytes % (Manual) Eosinophils % (Manual) Seg Neutrophils # Lymphocytes # (Manual) Eosinophils # (Manual) PT INR D-Dimer POC ABG pH POC ABG pCO2 POC ABG pO2 ABG pO2 ABG HCO3 ABG Base Excess ABG Hemoglobin Oxyhemoglobin Sodium Potassium Chloride Carbon Dioxide BUN Creatinine Glucose POC Glucose 134 H 128 H 142 H Calcium Phosphorus Magnesium ALT Alkaline Phosphatase Total Creatine Kinase CK-MB (CK-2) Rel Index Troponin T Albumin LDL Cholesterol Direct PTH Intact Salicylates Acetaminophen Crossmatch 02/28/19 03/01/19 03/01/19 23:13 05:40 09:39 WBC RBC Hgb Hct MCV MCH MCHC RDW Lymph % (Auto) Riley % (Auto) Eos % (Auto) Lymph # Riley # Eos # Seg Neutrophils % Seg Neuts % (Manual) Lymphocytes % (Manual) Eosinophils % (Manual) Seg Neutrophils # Lymphocytes # (Manual) Eosinophils # (Manual) PT 16.3 H INR 1.35 H D-Dimer POC ABG pH POC ABG pCO2 POC ABG pO2 ABG pO2 ABG HCO3 ABG Base Excess ABG Hemoglobin Oxyhemoglobin Sodium Potassium Chloride Carbon Dioxide BUN Creatinine Glucose POC Glucose 112 H 111 H Calcium Phosphorus Magnesium ALT Alkaline Phosphatase Total Creatine Kinase CK-MB (CK-2) Rel Index Troponin T Albumin LDL Cholesterol Direct PTH Intact Salicylates Acetaminophen Crossmatch 03/01/19 03/01/19 03/01/19 11:56 13:54 17:59 WBC RBC Hgb Hct MCV MCH MCHC RDW Lymph % (Auto) Riley % (Auto) Eos % (Auto) Lymph # Riley # Eos # Seg Neutrophils % Seg Neuts % (Manual) Lymphocytes % (Manual) Eosinophils % (Manual) Seg Neutrophils # Lymphocytes # (Manual) Eosinophils # (Manual) PT INR D-Dimer POC ABG pH POC ABG pCO2 POC ABG pO2 ABG pO2 ABG HCO3 ABG Base Excess ABG Hemoglobin Oxyhemoglobin Sodium Potassium Chloride Carbon Dioxide BUN 33 H Creatinine 2.8 H D Glucose 176 H POC Glucose 199 H 147 H Calcium Phosphorus Magnesium ALT Alkaline Phosphatase Total Creatine Kinase CK-MB (CK-2) Rel Index Troponin T Albumin LDL Cholesterol Direct PTH Intact Salicylates Acetaminophen Crossmatch 03/02/19 03/02/19 03/02/19 05:15 05:15 05:15 WBC RBC 2.73 L Hgb 7.4 L Hct 23.0 L MCV MCH 27 L MCHC RDW 19.9 H Lymph % (Auto) Riley % (Auto) 7.9 H Eos % (Auto) 7.6 H Lymph # 1.0 L Riley # Eos # 0.5 H Seg Neutrophils % Seg Neuts % (Manual) Lymphocytes % (Manual) Eosinophils % (Manual) Seg Neutrophils # Lymphocytes # (Manual) Eosinophils # (Manual) PT INR D-Dimer POC ABG pH POC ABG pCO2 POC ABG pO2 ABG pO2 ABG HCO3 ABG Base Excess ABG Hemoglobin Oxyhemoglobin Sodium Potassium Chloride Carbon Dioxide BUN 43 H Creatinine 3.2 H Glucose POC Glucose Calcium Phosphorus 2.30 L Magnesium ALT Alkaline Phosphatase Total Creatine Kinase CK-MB (CK-2) Rel Index Troponin T Albumin LDL Cholesterol Direct PTH Intact 267.6 H Salicylates Acetaminophen Crossmatch 03/02/19 03/02/19 03/03/19 12:32 18:20 13:30 WBC RBC Hgb Hct MCV MCH MCHC RDW Lymph % (Auto) Riley % (Auto) Eos % (Auto) Lymph # Riley # Eos # Seg Neutrophils % Seg Neuts % (Manual) Lymphocytes % (Manual) Eosinophils % (Manual) Seg Neutrophils # Lymphocytes # (Manual) Eosinophils # (Manual) PT INR D-Dimer POC ABG pH POC ABG pCO2 POC ABG pO2 ABG pO2 ABG HCO3 ABG Base Excess ABG Hemoglobin Oxyhemoglobin Sodium Potassium Chloride 97.3 L Carbon Dioxide BUN 26 H Creatinine 2.2 H Glucose 73 L POC Glucose 111 H 156 H Calcium Phosphorus Magnesium ALT Alkaline Phosphatase Total Creatine Kinase CK-MB (CK-2) Rel Index Troponin T Albumin LDL Cholesterol Direct PTH Intact Salicylates Acetaminophen Crossmatch 03/04/19 03/04/19 03/04/19 00:02 05:37 05:40 WBC RBC 2.63 L Hgb 7.2 L Hct 22.2 L MCV MCH MCHC RDW 20.2 H Lymph % (Auto) 10.5 L Riley % (Auto) Eos % (Auto) 4.6 H Lymph # 0.7 L Riley # Eos # Seg Neutrophils % 76.9 H Seg Neuts % (Manual) Lymphocytes % (Manual) Eosinophils % (Manual) Seg Neutrophils # Lymphocytes # (Manual) Eosinophils # (Manual) PT INR D-Dimer POC ABG pH POC ABG pCO2 POC ABG pO2 ABG pO2 ABG HCO3 ABG Base Excess ABG Hemoglobin Oxyhemoglobin Sodium Potassium Chloride Carbon Dioxide BUN Creatinine Glucose POC Glucose 136 H 123 H Calcium Phosphorus Magnesium ALT Alkaline Phosphatase Total Creatine Kinase CK-MB (CK-2) Rel Index Troponin T Albumin LDL Cholesterol Direct PTH Intact Salicylates Acetaminophen Crossmatch 03/04/19 03/04/19 03/04/19 05:40 11:39 23:20 WBC RBC Hgb Hct MCV MCH MCHC RDW Lymph % (Auto) Riley % (Auto) Eos % (Auto) Lymph # Riley # Eos # Seg Neutrophils % Seg Neuts % (Manual) Lymphocytes % (Manual) Eosinophils % (Manual) Seg Neutrophils # Lymphocytes # (Manual) Eosinophils # (Manual) PT INR D-Dimer POC ABG pH POC ABG pCO2 POC ABG pO2 ABG pO2 ABG HCO3 ABG Base Excess ABG Hemoglobin Oxyhemoglobin Sodium Potassium Chloride Carbon Dioxide BUN 34 H Creatinine 2.7 H Glucose 114 H POC Glucose 175 H 151 H Calcium Phosphorus Magnesium ALT Alkaline Phosphatase Total Creatine Kinase CK-MB (CK-2) Rel Index Troponin T Albumin LDL Cholesterol Direct PTH Intact Salicylates Acetaminophen Crossmatch 03/05/19 03/05/19 03/05/19 05:37 12:08 17:11 WBC RBC Hgb Hct MCV MCH MCHC RDW Lymph % (Auto) Riley % (Auto) Eos % (Auto) Lymph # Riley # Eos # Seg Neutrophils % Seg Neuts % (Manual) Lymphocytes % (Manual) Eosinophils % (Manual) Seg Neutrophils # Lymphocytes # (Manual) Eosinophils # (Manual) PT INR D-Dimer POC ABG pH POC ABG pCO2 POC ABG pO2 ABG pO2 ABG HCO3 ABG Base Excess ABG Hemoglobin Oxyhemoglobin Sodium Potassium Chloride Carbon Dioxide BUN Creatinine Glucose POC Glucose 134 H 135 H 135 H Calcium Phosphorus Magnesium ALT Alkaline Phosphatase Total Creatine Kinase CK-MB (CK-2) Rel Index Troponin T Albumin LDL Cholesterol Direct PTH Intact Salicylates Acetaminophen Crossmatch 03/06/19 03/06/19 03/06/19 00:16 13:05 18:09 WBC RBC Hgb Hct MCV MCH MCHC RDW Lymph % (Auto) Riley % (Auto) Eos % (Auto) Lymph # Riley # Eos # Seg Neutrophils % Seg Neuts % (Manual) Lymphocytes % (Manual) Eosinophils % (Manual) Seg Neutrophils # Lymphocytes # (Manual) Eosinophils # (Manual) PT INR D-Dimer POC ABG pH POC ABG pCO2 POC ABG pO2 ABG pO2 ABG HCO3 ABG Base Excess ABG Hemoglobin Oxyhemoglobin Sodium Potassium Chloride Carbon Dioxide BUN Creatinine Glucose POC Glucose 117 H 113 H 131 H Calcium Phosphorus Magnesium ALT Alkaline Phosphatase Total Creatine Kinase CK-MB (CK-2) Rel Index Troponin T Albumin LDL Cholesterol Direct PTH Intact Salicylates Acetaminophen Crossmatch 03/07/19 03/08/19 03/08/19 05:25 05:33 16:00 WBC RBC 2.44 L Hgb 6.6 L Hct 20.8 L MCV MCH 27 L MCHC RDW 19.2 H Lymph % (Auto) Riley % (Auto) Eos % (Auto) 8.6 H Lymph # 0.8 L Riley # Eos # 0.5 H Seg Neutrophils % 70.7 H Seg Neuts % (Manual) Lymphocytes % (Manual) Eosinophils % (Manual) Seg Neutrophils # Lymphocytes # (Manual) Eosinophils # (Manual) PT INR D-Dimer POC ABG pH POC ABG pCO2 POC ABG pO2 ABG pO2 ABG HCO3 ABG Base Excess ABG Hemoglobin Oxyhemoglobin Sodium Potassium Chloride Carbon Dioxide BUN Creatinine Glucose POC Glucose 106 H 108 H Calcium Phosphorus Magnesium ALT Alkaline Phosphatase Total Creatine Kinase CK-MB (CK-2) Rel Index Troponin T Albumin LDL Cholesterol Direct PTH Intact Salicylates Acetaminophen Crossmatch 03/08/19 03/08/19 03/08/19 16:00 18:38 Unknown WBC RBC Hgb Hct MCV MCH MCHC RDW Lymph % (Auto) Riley % (Auto) Eos % (Auto) Lymph # Riley # Eos # Seg Neutrophils % Seg Neuts % (Manual) Lymphocytes % (Manual) Eosinophils % (Manual) Seg Neutrophils # Lymphocytes # (Manual) Eosinophils # (Manual) PT INR D-Dimer POC ABG pH POC ABG pCO2 POC ABG pO2 ABG pO2 ABG HCO3 ABG Base Excess ABG Hemoglobin Oxyhemoglobin Sodium Potassium 5.4 H D Chloride Carbon Dioxide BUN 47 H Creatinine 2.6 H Glucose POC Glucose 123 H Calcium Phosphorus Magnesium ALT < 5 L Alkaline Phosphatase Total Creatine Kinase CK-MB (CK-2) Rel Index Troponin T Albumin 2.2 L LDL Cholesterol Direct PTH Intact Salicylates Acetaminophen Crossmatch See Detail 03/09/19 03/09/19 03/09/19 10:48 12:28 13:53 WBC RBC 2.85 L Hgb 7.7 L Hct 24.2 L MCV MCH 27 L MCHC RDW 18.7 H Lymph % (Auto) Riley % (Auto) Eos % (Auto) Lymph # Riley # Eos # Seg Neutrophils % Seg Neuts % (Manual) Lymphocytes % (Manual) Eosinophils % (Manual) Seg Neutrophils # Lymphocytes # (Manual) Eosinophils # (Manual) PT INR D-Dimer POC ABG pH POC ABG pCO2 POC ABG pO2 ABG pO2 ABG HCO3 30.5 H ABG Base Excess 5.6 H ABG Hemoglobin 8.1 L Oxyhemoglobin 93.8 L Sodium Potassium Chloride Carbon Dioxide BUN Creatinine Glucose POC Glucose 114 H Calcium Phosphorus Magnesium ALT Alkaline Phosphatase Total Creatine Kinase CK-MB (CK-2) Rel Index Troponin T Albumin LDL Cholesterol Direct PTH Intact Salicylates Acetaminophen Crossmatch 03/09/19 03/09/19 03/10/19 17:58 23:53 12:01 WBC RBC Hgb Hct MCV MCH MCHC RDW Lymph % (Auto) Riley % (Auto) Eos % (Auto) Lymph # Riley # Eos # Seg Neutrophils % Seg Neuts % (Manual) Lymphocytes % (Manual) Eosinophils % (Manual) Seg Neutrophils # Lymphocytes # (Manual) Eosinophils # (Manual) PT INR D-Dimer POC ABG pH POC ABG pCO2 POC ABG pO2 ABG pO2 ABG HCO3 ABG Base Excess ABG Hemoglobin Oxyhemoglobin Sodium Potassium Chloride Carbon Dioxide BUN Creatinine Glucose POC Glucose 108 H 128 H 144 H Calcium Phosphorus Magnesium ALT Alkaline Phosphatase Total Creatine Kinase CK-MB (CK-2) Rel Index Troponin T Albumin LDL Cholesterol Direct PTH Intact Salicylates Acetaminophen Crossmatch 03/10/19 03/11/19 03/11/19 16:50 00:24 05:02 WBC RBC Hgb Hct MCV MCH MCHC RDW Lymph % (Auto) Riley % (Auto) Eos % (Auto) Lymph # Riley # Eos # Seg Neutrophils % Seg Neuts % (Manual) Lymphocytes % (Manual) Eosinophils % (Manual) Seg Neutrophils # Lymphocytes # (Manual) Eosinophils # (Manual) PT INR D-Dimer POC ABG pH POC ABG pCO2 POC ABG pO2 ABG pO2 ABG HCO3 ABG Base Excess ABG Hemoglobin Oxyhemoglobin Sodium Potassium Chloride Carbon Dioxide BUN Creatinine Glucose POC Glucose 147 H 123 H 120 H Calcium Phosphorus Magnesium ALT Alkaline Phosphatase Total Creatine Kinase CK-MB (CK-2) Rel Index Troponin T Albumin LDL Cholesterol Direct PTH Intact Salicylates Acetaminophen Crossmatch 03/11/19 03/11/19 03/11/19 11:56 12:20 18:37 WBC RBC Hgb Hct MCV MCH MCHC RDW Lymph % (Auto) Riley % (Auto) Eos % (Auto) Lymph # Riley # Eos # Seg Neutrophils % Seg Neuts % (Manual) Lymphocytes % (Manual) Eosinophils % (Manual) Seg Neutrophils # Lymphocytes # (Manual) Eosinophils # (Manual) PT INR D-Dimer POC ABG pH POC ABG pCO2 POC ABG pO2 ABG pO2 ABG HCO3 ABG Base Excess ABG Hemoglobin Oxyhemoglobin Sodium Potassium 5.2 H Chloride Carbon Dioxide BUN Creatinine Glucose POC Glucose 123 H 125 H Calcium Phosphorus Magnesium ALT Alkaline Phosphatase Total Creatine Kinase CK-MB (CK-2) Rel Index Troponin T Albumin LDL Cholesterol Direct PTH Intact Salicylates Acetaminophen Crossmatch 03/11/19 03/12/19 03/12/19 22:52 12:04 18:25 WBC RBC Hgb Hct MCV MCH MCHC RDW Lymph % (Auto) Riley % (Auto) Eos % (Auto) Lymph # Riley # Eos # Seg Neutrophils % Seg Neuts % (Manual) Lymphocytes % (Manual) Eosinophils % (Manual) Seg Neutrophils # Lymphocytes # (Manual) Eosinophils # (Manual) PT INR D-Dimer POC ABG pH POC ABG pCO2 POC ABG pO2 ABG pO2 ABG HCO3 ABG Base Excess ABG Hemoglobin Oxyhemoglobin Sodium Potassium Chloride Carbon Dioxide BUN Creatinine Glucose POC Glucose 110 H 106 H 118 H Calcium Phosphorus Magnesium ALT Alkaline Phosphatase Total Creatine Kinase CK-MB (CK-2) Rel Index Troponin T Albumin LDL Cholesterol Direct PTH Intact Salicylates Acetaminophen Crossmatch 03/12/19 03/13/19 03/13/19 23:36 04:38 04:38 WBC RBC 2.95 L Hgb 7.9 L Hct 24.9 L MCV MCH 27 L MCHC RDW 19.9 H Lymph % (Auto) 11.1 L Riley % (Auto) 8.1 H Eos % (Auto) 4.4 H Lymph # 0.9 L Riley # Eos # Seg Neutrophils % 75.4 H Seg Neuts % (Manual) Lymphocytes % (Manual) Eosinophils % (Manual) Seg Neutrophils # Lymphocytes # (Manual) Eosinophils # (Manual) PT INR D-Dimer POC ABG pH POC ABG pCO2 POC ABG pO2 ABG pO2 ABG HCO3 ABG Base Excess ABG Hemoglobin Oxyhemoglobin Sodium 136 L Potassium 5.1 H Chloride 93.8 L Carbon Dioxide BUN 48 H Creatinine 2.7 H Glucose 102 H POC Glucose 115 H Calcium Phosphorus Magnesium ALT < 5 L Alkaline Phosphatase 143 H Total Creatine Kinase CK-MB (CK-2) Rel Index Troponin T Albumin 2.5 L LDL Cholesterol Direct PTH Intact Salicylates Acetaminophen Crossmatch 03/13/19 03/13/19 03/13/19 05:33 13:37 18:03 WBC RBC Hgb Hct MCV MCH MCHC RDW Lymph % (Auto) Riley % (Auto) Eos % (Auto) Lymph # Riley # Eos # Seg Neutrophils % Seg Neuts % (Manual) Lymphocytes % (Manual) Eosinophils % (Manual) Seg Neutrophils # Lymphocytes # (Manual) Eosinophils # (Manual) PT INR D-Dimer POC ABG pH POC ABG pCO2 POC ABG pO2 ABG pO2 ABG HCO3 ABG Base Excess ABG Hemoglobin Oxyhemoglobin Sodium Potassium Chloride Carbon Dioxide BUN Creatinine Glucose POC Glucose 140 H 150 H 158 H Calcium Phosphorus Magnesium ALT Alkaline Phosphatase Total Creatine Kinase CK-MB (CK-2) Rel Index Troponin T Albumin LDL Cholesterol Direct PTH Intact Salicylates Acetaminophen Crossmatch 03/13/19 03/14/19 03/14/19 23:32 05:24 12:20 WBC RBC Hgb Hct MCV MCH MCHC RDW Lymph % (Auto) Riley % (Auto) Eos % (Auto) Lymph # Riley # Eos # Seg Neutrophils % Seg Neuts % (Manual) Lymphocytes % (Manual) Eosinophils % (Manual) Seg Neutrophils # Lymphocytes # (Manual) Eosinophils # (Manual) PT INR D-Dimer POC ABG pH POC ABG pCO2 POC ABG pO2 ABG pO2 ABG HCO3 ABG Base Excess ABG Hemoglobin Oxyhemoglobin Sodium Potassium Chloride Carbon Dioxide BUN Creatinine Glucose POC Glucose 162 H 146 H 127 H Calcium Phosphorus Magnesium ALT Alkaline Phosphatase Total Creatine Kinase CK-MB (CK-2) Rel Index Troponin T Albumin LDL Cholesterol Direct PTH Intact Salicylates Acetaminophen Crossmatch 03/14/19 03/14/19 03/15/19 18:05 23:57 04:38 WBC 12.8 H RBC 3.11 L Hgb 8.1 L Hct 26.5 L MCV MCH 26 L MCHC 31 L RDW 19.7 H Lymph % (Auto) 4.4 L Riley % (Auto) 7.4 H Eos % (Auto) Lymph # 0.6 L Riley # 0.9 H Eos # Seg Neutrophils % 87.3 H Seg Neuts % (Manual) Lymphocytes % (Manual) Eosinophils % (Manual) Seg Neutrophils # 11.2 H Lymphocytes # (Manual) Eosinophils # (Manual) PT INR D-Dimer POC ABG pH POC ABG pCO2 POC ABG pO2 ABG pO2 ABG HCO3 ABG Base Excess ABG Hemoglobin Oxyhemoglobin Sodium Potassium Chloride Carbon Dioxide BUN Creatinine Glucose POC Glucose 142 H 155 H Calcium Phosphorus Magnesium ALT Alkaline Phosphatase Total Creatine Kinase CK-MB (CK-2) Rel Index Troponin T Albumin LDL Cholesterol Direct PTH Intact Salicylates Acetaminophen Crossmatch 03/15/19 03/15/19 03/15/19 04:38 05:31 11:32 WBC RBC Hgb Hct MCV MCH MCHC RDW Lymph % (Auto) Riley % (Auto) Eos % (Auto) Lymph # Riley # Eos # Seg Neutrophils % Seg Neuts % (Manual) Lymphocytes % (Manual) Eosinophils % (Manual) Seg Neutrophils # Lymphocytes # (Manual) Eosinophils # (Manual) PT INR D-Dimer POC ABG pH POC ABG pCO2 POC ABG pO2 ABG pO2 ABG HCO3 ABG Base Excess ABG Hemoglobin Oxyhemoglobin Sodium 135 L Potassium Chloride 91.9 L Carbon Dioxide BUN 54 H Creatinine 2.8 H Glucose 128 H POC Glucose 160 H 109 H Calcium 11.1 H Phosphorus Magnesium ALT Alkaline Phosphatase 161 H Total Creatine Kinase CK-MB (CK-2) Rel Index Troponin T Albumin 2.3 L LDL Cholesterol Direct PTH Intact Salicylates Acetaminophen Crossmatch 03/15/19 03/15/19 03/16/19 18:15 23:41 05:40 WBC RBC Hgb Hct MCV MCH MCHC RDW Lymph % (Auto) Riley % (Auto) Eos % (Auto) Lymph # Riley # Eos # Seg Neutrophils % Seg Neuts % (Manual) Lymphocytes % (Manual) Eosinophils % (Manual) Seg Neutrophils # Lymphocytes # (Manual) Eosinophils # (Manual) PT INR D-Dimer POC ABG pH POC ABG pCO2 POC ABG pO2 ABG pO2 ABG HCO3 ABG Base Excess ABG Hemoglobin Oxyhemoglobin Sodium Potassium Chloride Carbon Dioxide BUN Creatinine Glucose POC Glucose 151 H 110 H 163 H Calcium Phosphorus Magnesium ALT Alkaline Phosphatase Total Creatine Kinase CK-MB (CK-2) Rel Index Troponin T Albumin LDL Cholesterol Direct PTH Intact Salicylates Acetaminophen Crossmatch 03/16/19 03/16/19 03/16/19 11:55 17:04 23:58 WBC RBC Hgb Hct MCV MCH MCHC RDW Lymph % (Auto) Riley % (Auto) Eos % (Auto) Lymph # Riley # Eos # Seg Neutrophils % Seg Neuts % (Manual) Lymphocytes % (Manual) Eosinophils % (Manual) Seg Neutrophils # Lymphocytes # (Manual) Eosinophils # (Manual) PT INR D-Dimer POC ABG pH POC ABG pCO2 POC ABG pO2 ABG pO2 ABG HCO3 ABG Base Excess ABG Hemoglobin Oxyhemoglobin Sodium Potassium Chloride Carbon Dioxide BUN Creatinine Glucose POC Glucose 114 H 147 H 192 H Calcium Phosphorus Magnesium ALT Alkaline Phosphatase Total Creatine Kinase CK-MB (CK-2) Rel Index Troponin T Albumin LDL Cholesterol Direct PTH Intact Salicylates Acetaminophen Crossmatch 03/17/19 03/17/19 03/17/19 05:53 11:17 17:01 WBC RBC Hgb Hct MCV MCH MCHC RDW Lymph % (Auto) Riley % (Auto) Eos % (Auto) Lymph # Riley # Eos # Seg Neutrophils % Seg Neuts % (Manual) Lymphocytes % (Manual) Eosinophils % (Manual) Seg Neutrophils # Lymphocytes # (Manual) Eosinophils # (Manual) PT INR D-Dimer POC ABG pH POC ABG pCO2 POC ABG pO2 ABG pO2 ABG HCO3 ABG Base Excess ABG Hemoglobin Oxyhemoglobin Sodium Potassium Chloride Carbon Dioxide BUN Creatinine Glucose POC Glucose 151 H 161 H 152 H Calcium Phosphorus Magnesium ALT Alkaline Phosphatase Total Creatine Kinase CK-MB (CK-2) Rel Index Troponin T Albumin LDL Cholesterol Direct PTH Intact Salicylates Acetaminophen Crossmatch 03/17/19 03/18/19 03/18/19 21:47 04:15 04:44 WBC RBC Hgb Hct MCV MCH MCHC RDW Lymph % (Auto) Riley % (Auto) Eos % (Auto) Lymph # Riley # Eos # Seg Neutrophils % Seg Neuts % (Manual) Lymphocytes % (Manual) Eosinophils % (Manual) Seg Neutrophils # Lymphocytes # (Manual) Eosinophils # (Manual) PT INR D-Dimer POC ABG pH POC ABG pCO2 POC ABG pO2 ABG pO2 102.8 H ABG HCO3 28.3 H ABG Base Excess ABG Hemoglobin 10.4 L Oxyhemoglobin 94.5 L Sodium Potassium Chloride Carbon Dioxide BUN Creatinine Glucose POC Glucose 170 H 150 H Calcium Phosphorus Magnesium ALT Alkaline Phosphatase Total Creatine Kinase CK-MB (CK-2) Rel Index Troponin T Albumin LDL Cholesterol Direct PTH Intact Salicylates Acetaminophen Crossmatch 03/18/19 03/18/19 03/18/19 06:38 12:12 17:47 WBC RBC Hgb Hct MCV MCH MCHC RDW Lymph % (Auto) Riley % (Auto) Eos % (Auto) Lymph # Riley # Eos # Seg Neutrophils % Seg Neuts % (Manual) Lymphocytes % (Manual) Eosinophils % (Manual) Seg Neutrophils # Lymphocytes # (Manual) Eosinophils # (Manual) PT INR D-Dimer POC ABG pH 7.510 H POC ABG pCO2 POC ABG pO2 164 H ABG pO2 ABG HCO3 ABG Base Excess ABG Hemoglobin Oxyhemoglobin Sodium Potassium Chloride Carbon Dioxide BUN Creatinine Glucose POC Glucose 145 H 149 H Calcium Phosphorus Magnesium ALT Alkaline Phosphatase Total Creatine Kinase CK-MB (CK-2) Rel Index Troponin T Albumin LDL Cholesterol Direct PTH Intact Salicylates Acetaminophen Crossmatch 03/18/19 03/19/19 03/19/19 23:25 01:11 04:23 WBC 15.6 H RBC 2.51 L Hgb 6.5 L Hct 21.6 L MCV MCH 26 L MCHC 30 L RDW 19.8 H Lymph % (Auto) 6.0 L Riley % (Auto) Eos % (Auto) Lymph # 0.9 L Riley # 1.0 H Eos # Seg Neutrophils % 85.5 H Seg Neuts % (Manual) Lymphocytes % (Manual) Eosinophils % (Manual) Seg Neutrophils # 13.4 H Lymphocytes # (Manual) Eosinophils # (Manual) PT INR D-Dimer POC ABG pH POC ABG pCO2 POC ABG pO2 ABG pO2 78.3 L ABG HCO3 30.7 H ABG Base Excess 5.8 H ABG Hemoglobin 5.8 L Oxyhemoglobin 94.6 L Sodium Potassium Chloride Carbon Dioxide BUN Creatinine Glucose POC Glucose 190 H Calcium Phosphorus Magnesium ALT Alkaline Phosphatase Total Creatine Kinase CK-MB (CK-2) Rel Index Troponin T Albumin LDL Cholesterol Direct PTH Intact Salicylates Acetaminophen Crossmatch 03/19/19 03/19/19 03/19/19 05:22 05:35 08:54 WBC RBC Hgb Hct MCV MCH MCHC RDW Lymph % (Auto) Riley % (Auto) Eos % (Auto) Lymph # Riley # Eos # Seg Neutrophils % Seg Neuts % (Manual) Lymphocytes % (Manual) Eosinophils % (Manual) Seg Neutrophils # Lymphocytes # (Manual) Eosinophils # (Manual) PT INR D-Dimer POC ABG pH POC ABG pCO2 POC ABG pO2 ABG pO2 ABG HCO3 ABG Base Excess ABG Hemoglobin Oxyhemoglobin Sodium Potassium Chloride Carbon Dioxide BUN Creatinine Glucose POC Glucose 167 H Calcium Phosphorus Magnesium ALT Alkaline Phosphatase Total Creatine Kinase CK-MB (CK-2) Rel Index Troponin T Albumin LDL Cholesterol Direct PTH Intact Salicylates Acetaminophen Crossmatch See Detail See Detail 03/19/19 03/19/19 03/19/19 12:36 17:02 23:25 WBC RBC Hgb Hct MCV MCH MCHC RDW Lymph % (Auto) Riley % (Auto) Eos % (Auto) Lymph # Riley # Eos # Seg Neutrophils % Seg Neuts % (Manual) Lymphocytes % (Manual) Eosinophils % (Manual) Seg Neutrophils # Lymphocytes # (Manual) Eosinophils # (Manual) PT INR D-Dimer POC ABG pH POC ABG pCO2 POC ABG pO2 ABG pO2 ABG HCO3 ABG Base Excess ABG Hemoglobin Oxyhemoglobin Sodium Potassium Chloride Carbon Dioxide BUN Creatinine Glucose POC Glucose 167 H 135 H 136 H Calcium Phosphorus Magnesium ALT Alkaline Phosphatase Total Creatine Kinase CK-MB (CK-2) Rel Index Troponin T Albumin LDL Cholesterol Direct PTH Intact Salicylates Acetaminophen Crossmatch 03/20/19 03/20/19 03/20/19 05:38 08:40 08:40 WBC RBC 2.61 L Hgb 7.1 L Hct 22.0 L MCV MCH 27 L MCHC RDW 19.6 H Lymph % (Auto) 8.2 L Riley % (Auto) 8.3 H Eos % (Auto) 5.7 H Lymph # 0.8 L Riley # Eos # 0.5 H Seg Neutrophils % 77.3 H Seg Neuts % (Manual) Lymphocytes % (Manual) Eosinophils % (Manual) Seg Neutrophils # Lymphocytes # (Manual) Eosinophils # (Manual) PT INR D-Dimer POC ABG pH POC ABG pCO2 POC ABG pO2 ABG pO2 ABG HCO3 ABG Base Excess ABG Hemoglobin Oxyhemoglobin Sodium Potassium Chloride 95.9 L Carbon Dioxide BUN 69 H Creatinine 2.8 H Glucose 115 H POC Glucose 134 H Calcium 10.5 H Phosphorus Magnesium ALT Alkaline Phosphatase Total Creatine Kinase CK-MB (CK-2) Rel Index Troponin T Albumin LDL Cholesterol Direct PTH Intact Salicylates Acetaminophen Crossmatch 03/20/19 03/20/19 03/20/19 12:13 18:04 23:49 WBC RBC Hgb Hct MCV MCH MCHC RDW Lymph % (Auto) Riley % (Auto) Eos % (Auto) Lymph # Riley # Eos # Seg Neutrophils % Seg Neuts % (Manual) Lymphocytes % (Manual) Eosinophils % (Manual) Seg Neutrophils # Lymphocytes # (Manual) Eosinophils # (Manual) PT INR D-Dimer POC ABG pH POC ABG pCO2 POC ABG pO2 ABG pO2 ABG HCO3 ABG Base Excess ABG Hemoglobin Oxyhemoglobin Sodium Potassium Chloride Carbon Dioxide BUN Creatinine Glucose POC Glucose 144 H 165 H 172 H Calcium Phosphorus Magnesium ALT Alkaline Phosphatase Total Creatine Kinase CK-MB (CK-2) Rel Index Troponin T Albumin LDL Cholesterol Direct PTH Intact Salicylates Acetaminophen Crossmatch 03/21/19 03/21/19 03/21/19 05:00 06:29 06:30 WBC RBC 2.72 L Hgb 7.4 L Hct 22.9 L MCV MCH 27 L MCHC RDW 19.4 H Lymph % (Auto) Riley % (Auto) Eos % (Auto) Lymph # Riley # Eos # Seg Neutrophils % Seg Neuts % (Manual) 81.0 H Lymphocytes % (Manual) 8.0 L Eosinophils % (Manual) 8.0 H Seg Neutrophils # Lymphocytes # (Manual) 0.7 L Eosinophils # (Manual) 0.7 H PT INR D-Dimer POC ABG pH POC ABG pCO2 POC ABG pO2 ABG pO2 ABG HCO3 ABG Base Excess ABG Hemoglobin Oxyhemoglobin Sodium Potassium Chloride Carbon Dioxide 33 H BUN 43 H Creatinine 1.7 H Glucose 145 H POC Glucose 156 H Calcium Phosphorus Magnesium ALT Alkaline Phosphatase 212 H Total Creatine Kinase CK-MB (CK-2) Rel Index Troponin T Albumin 2.2 L LDL Cholesterol Direct PTH Intact Salicylates Acetaminophen Crossmatch 03/21/19 03/21/19 03/22/19 12:02 18:07 00:21 WBC RBC Hgb Hct MCV MCH MCHC RDW Lymph % (Auto) Riley % (Auto) Eos % (Auto) Lymph # Riley # Eos # Seg Neutrophils % Seg Neuts % (Manual) Lymphocytes % (Manual) Eosinophils % (Manual) Seg Neutrophils # Lymphocytes # (Manual) Eosinophils # (Manual) PT INR D-Dimer POC ABG pH POC ABG pCO2 POC ABG pO2 ABG pO2 ABG HCO3 ABG Base Excess ABG Hemoglobin Oxyhemoglobin Sodium Potassium Chloride Carbon Dioxide BUN Creatinine Glucose POC Glucose 163 H 144 H 153 H Calcium Phosphorus Magnesium ALT Alkaline Phosphatase Total Creatine Kinase CK-MB (CK-2) Rel Index Troponin T Albumin LDL Cholesterol Direct PTH Intact Salicylates Acetaminophen Crossmatch 03/22/19 03/22/19 03/22/19 05:23 05:23 05:31 WBC RBC 2.58 L Hgb 7.1 L Hct 21.8 L MCV MCH 27 L MCHC RDW 19.2 H Lymph % (Auto) Riley % (Auto) Eos % (Auto) Lymph # Riley # Eos # Seg Neutrophils % Seg Neuts % (Manual) Lymphocytes % (Manual) Eosinophils % (Manual) Seg Neutrophils # Lymphocytes # (Manual) Eosinophils # (Manual) PT INR D-Dimer POC ABG pH POC ABG pCO2 POC ABG pO2 ABG pO2 ABG HCO3 ABG Base Excess ABG Hemoglobin Oxyhemoglobin Sodium 147 H Potassium Chloride Carbon Dioxide BUN 68 H Creatinine 2.5 H Glucose POC Glucose 116 H Calcium 10.3 H Phosphorus Magnesium ALT Alkaline Phosphatase Total Creatine Kinase CK-MB (CK-2) Rel Index Troponin T Albumin LDL Cholesterol Direct PTH Intact Salicylates Acetaminophen Crossmatch 03/22/19 03/22/19 03/22/19 08:48 12:37 17:35 WBC RBC Hgb Hct MCV MCH MCHC RDW Lymph % (Auto) Riley % (Auto) Eos % (Auto) Lymph # Riley # Eos # Seg Neutrophils % Seg Neuts % (Manual) Lymphocytes % (Manual) Eosinophils % (Manual) Seg Neutrophils # Lymphocytes # (Manual) Eosinophils # (Manual) PT INR D-Dimer POC ABG pH POC ABG pCO2 POC ABG pO2 ABG pO2 ABG HCO3 ABG Base Excess ABG Hemoglobin Oxyhemoglobin Sodium Potassium Chloride Carbon Dioxide BUN Creatinine Glucose POC Glucose 143 H 155 H Calcium Phosphorus Magnesium ALT Alkaline Phosphatase Total Creatine Kinase CK-MB (CK-2) Rel Index Troponin T Albumin LDL Cholesterol Direct PTH Intact Salicylates Acetaminophen Crossmatch See Detail 03/23/19 03/23/19 03/23/19 00:07 04:00 04:00 WBC 11.2 H RBC 2.32 L Hgb 6.4 L Hct 19.7 L* MCV MCH MCHC RDW 19.4 H Lymph % (Auto) Riley % (Auto) Eos % (Auto) Lymph # Riley # Eos # Seg Neutrophils % Seg Neuts % (Manual) Lymphocytes % (Manual) Eosinophils % (Manual) Seg Neutrophils # Lymphocytes # (Manual) Eosinophils # (Manual) PT INR D-Dimer POC ABG pH POC ABG pCO2 POC ABG pO2 ABG pO2 ABG HCO3 ABG Base Excess ABG Hemoglobin Oxyhemoglobin Sodium 147 H Potassium 5.2 H Chloride Carbon Dioxide BUN 86 H Creatinine 3.2 H Glucose 128 H POC Glucose 135 H Calcium 10.3 H Phosphorus Magnesium ALT Alkaline Phosphatase Total Creatine Kinase CK-MB (CK-2) Rel Index Troponin T Albumin LDL Cholesterol Direct PTH Intact Salicylates Acetaminophen Crossmatch 03/23/19 03/23/19 03/23/19 05:21 11:36 11:36 WBC RBC Hgb 7.9 L Hct 25.0 L MCV MCH MCHC RDW Lymph % (Auto) Riley % (Auto) Eos % (Auto) Lymph # Riley # Eos # Seg Neutrophils % Seg Neuts % (Manual) Lymphocytes % (Manual) Eosinophils % (Manual) Seg Neutrophils # Lymphocytes # (Manual) Eosinophils # (Manual) PT INR D-Dimer POC ABG pH POC ABG pCO2 POC ABG pO2 ABG pO2 ABG HCO3 ABG Base Excess ABG Hemoglobin Oxyhemoglobin Sodium Potassium Chloride Carbon Dioxide BUN Creatinine Glucose POC Glucose 132 H 147 H Calcium Phosphorus Magnesium ALT Alkaline Phosphatase Total Creatine Kinase CK-MB (CK-2) Rel Index Troponin T Albumin LDL Cholesterol Direct PTH Intact Salicylates Acetaminophen Crossmatch 03/23/19 03/24/19 03/24/19 17:31 01:22 04:20 WBC 12.2 H RBC 3.05 L Hgb 8.3 L Hct 25.9 L MCV MCH 27 L MCHC RDW 18.7 H Lymph % (Auto) Riley % (Auto) Eos % (Auto) Lymph # Riley # Eos # Seg Neutrophils % Seg Neuts % (Manual) Lymphocytes % (Manual) Eosinophils % (Manual) Seg Neutrophils # Lymphocytes # (Manual) Eosinophils # (Manual) PT INR D-Dimer POC ABG pH POC ABG pCO2 POC ABG pO2 ABG pO2 ABG HCO3 ABG Base Excess ABG Hemoglobin Oxyhemoglobin Sodium Potassium Chloride Carbon Dioxide BUN Creatinine Glucose POC Glucose 182 H 113 H Calcium Phosphorus Magnesium ALT Alkaline Phosphatase Total Creatine Kinase CK-MB (CK-2) Rel Index Troponin T Albumin LDL Cholesterol Direct PTH Intact Salicylates Acetaminophen Crossmatch 03/24/19 03/24/19 03/24/19 04:20 11:59 18:14 WBC RBC Hgb Hct MCV MCH MCHC RDW Lymph % (Auto) Riley % (Auto) Eos % (Auto) Lymph # Riley # Eos # Seg Neutrophils % Seg Neuts % (Manual) Lymphocytes % (Manual) Eosinophils % (Manual) Seg Neutrophils # Lymphocytes # (Manual) Eosinophils # (Manual) PT INR D-Dimer POC ABG pH POC ABG pCO2 POC ABG pO2 ABG pO2 ABG HCO3 ABG Base Excess ABG Hemoglobin Oxyhemoglobin Sodium Potassium Chloride 94.8 L Carbon Dioxide 32 H BUN 53 H Creatinine 2.3 H Glucose POC Glucose 163 H 134 H Calcium Phosphorus Magnesium ALT Alkaline Phosphatase Total Creatine Kinase CK-MB (CK-2) Rel Index Troponin T Albumin LDL Cholesterol Direct PTH Intact Salicylates Acetaminophen Crossmatch 03/24/19 03/25/19 03/25/19 23:15 05:52 12:02 WBC RBC Hgb Hct MCV MCH MCHC RDW Lymph % (Auto) Riley % (Auto) Eos % (Auto) Lymph # Riley # Eos # Seg Neutrophils % Seg Neuts % (Manual) Lymphocytes % (Manual) Eosinophils % (Manual) Seg Neutrophils # Lymphocytes # (Manual) Eosinophils # (Manual) PT INR D-Dimer POC ABG pH POC ABG pCO2 POC ABG pO2 ABG pO2 ABG HCO3 ABG Base Excess ABG Hemoglobin Oxyhemoglobin Sodium Potassium Chloride Carbon Dioxide BUN Creatinine Glucose POC Glucose 129 H 123 H 125 H Calcium Phosphorus Magnesium ALT Alkaline Phosphatase Total Creatine Kinase CK-MB (CK-2) Rel Index Troponin T Albumin LDL Cholesterol Direct PTH Intact Salicylates Acetaminophen Crossmatch 03/25/19 03/26/19 03/26/19 17:27 00:30 05:35 WBC RBC 3.01 L Hgb 8.1 L Hct 25.7 L MCV MCH 27 L MCHC RDW 19.2 H Lymph % (Auto) 11.4 L Riley % (Auto) Eos % (Auto) 8.0 H Lymph # 1.0 L Riley # Eos # 0.7 H Seg Neutrophils % 73.9 H Seg Neuts % (Manual) Lymphocytes % (Manual) Eosinophils % (Manual) Seg Neutrophils # Lymphocytes # (Manual) Eosinophils # (Manual) PT INR D-Dimer POC ABG pH POC ABG pCO2 POC ABG pO2 ABG pO2 ABG HCO3 ABG Base Excess ABG Hemoglobin Oxyhemoglobin Sodium Potassium Chloride Carbon Dioxide BUN Creatinine Glucose POC Glucose 130 H 129 H Calcium Phosphorus Magnesium ALT Alkaline Phosphatase Total Creatine Kinase CK-MB (CK-2) Rel Index Troponin T Albumin LDL Cholesterol Direct PTH Intact Salicylates Acetaminophen Crossmatch 03/26/19 03/26/19 03/26/19 05:35 05:45 12:16 WBC RBC Hgb Hct MCV MCH MCHC RDW Lymph % (Auto) Riley % (Auto) Eos % (Auto) Lymph # Riley # Eos # Seg Neutrophils % Seg Neuts % (Manual) Lymphocytes % (Manual) Eosinophils % (Manual) Seg Neutrophils # Lymphocytes # (Manual) Eosinophils # (Manual) PT INR D-Dimer POC ABG pH POC ABG pCO2 POC ABG pO2 ABG pO2 ABG HCO3 ABG Base Excess ABG Hemoglobin Oxyhemoglobin Sodium Potassium Chloride 94.9 L Carbon Dioxide 31 H BUN 44 H Creatinine 2.0 H Glucose POC Glucose 118 H 107 H Calcium Phosphorus Magnesium ALT Alkaline Phosphatase Total Creatine Kinase CK-MB (CK-2) Rel Index Troponin T Albumin LDL Cholesterol Direct PTH Intact Salicylates Acetaminophen Crossmatch 03/26/19 03/27/19 03/27/19 17:56 00:36 05:37 WBC RBC Hgb Hct MCV MCH MCHC RDW Lymph % (Auto) Riley % (Auto) Eos % (Auto) Lymph # Riley # Eos # Seg Neutrophils % Seg Neuts % (Manual) Lymphocytes % (Manual) Eosinophils % (Manual) Seg Neutrophils # Lymphocytes # (Manual) Eosinophils # (Manual) PT INR D-Dimer POC ABG pH POC ABG pCO2 POC ABG pO2 ABG pO2 ABG HCO3 ABG Base Excess ABG Hemoglobin Oxyhemoglobin Sodium Potassium Chloride Carbon Dioxide BUN Creatinine Glucose POC Glucose 107 H 110 H 122 H Calcium Phosphorus Magnesium ALT Alkaline Phosphatase Total Creatine Kinase CK-MB (CK-2) Rel Index Troponin T Albumin LDL Cholesterol Direct PTH Intact Salicylates Acetaminophen Crossmatch 03/27/19 03/27/19 03/28/19 11:22 18:00 05:17 WBC RBC Hgb Hct MCV MCH MCHC RDW Lymph % (Auto) Riley % (Auto) Eos % (Auto) Lymph # Riley # Eos # Seg Neutrophils % Seg Neuts % (Manual) Lymphocytes % (Manual) Eosinophils % (Manual) Seg Neutrophils # Lymphocytes # (Manual) Eosinophils # (Manual) PT INR D-Dimer POC ABG pH POC ABG pCO2 POC ABG pO2 ABG pO2 ABG HCO3 ABG Base Excess ABG Hemoglobin Oxyhemoglobin Sodium Potassium Chloride Carbon Dioxide BUN Creatinine Glucose POC Glucose 120 H 111 H 107 H Calcium Phosphorus Magnesium ALT Alkaline Phosphatase Total Creatine Kinase CK-MB (CK-2) Rel Index Troponin T Albumin LDL Cholesterol Direct PTH Intact Salicylates Acetaminophen Crossmatch 03/28/19 03/28/19 03/29/19 12:27 18:08 05:47 WBC RBC Hgb Hct MCV MCH MCHC RDW Lymph % (Auto) Riley % (Auto) Eos % (Auto) Lymph # Riley # Eos # Seg Neutrophils % Seg Neuts % (Manual) Lymphocytes % (Manual) Eosinophils % (Manual) Seg Neutrophils # Lymphocytes # (Manual) Eosinophils # (Manual) PT INR D-Dimer POC ABG pH POC ABG pCO2 POC ABG pO2 ABG pO2 ABG HCO3 ABG Base Excess ABG Hemoglobin Oxyhemoglobin Sodium Potassium Chloride Carbon Dioxide BUN Creatinine Glucose POC Glucose 114 H 121 H 112 H Calcium Phosphorus Magnesium ALT Alkaline Phosphatase Total Creatine Kinase CK-MB (CK-2) Rel Index Troponin T Albumin LDL Cholesterol Direct PTH Intact Salicylates Acetaminophen Crossmatch 03/29/19 03/29/19 03/30/19 12:14 18:08 00:31 WBC RBC Hgb Hct MCV MCH MCHC RDW Lymph % (Auto) Riley % (Auto) Eos % (Auto) Lymph # Riley # Eos # Seg Neutrophils % Seg Neuts % (Manual) Lymphocytes % (Manual) Eosinophils % (Manual) Seg Neutrophils # Lymphocytes # (Manual) Eosinophils # (Manual) PT INR D-Dimer POC ABG pH POC ABG pCO2 POC ABG pO2 ABG pO2 ABG HCO3 ABG Base Excess ABG Hemoglobin Oxyhemoglobin Sodium Potassium Chloride Carbon Dioxide BUN Creatinine Glucose POC Glucose 117 H 140 H 114 H Calcium Phosphorus Magnesium ALT Alkaline Phosphatase Total Creatine Kinase CK-MB (CK-2) Rel Index Troponin T Albumin LDL Cholesterol Direct PTH Intact Salicylates Acetaminophen Crossmatch 03/30/19 03/30/19 03/30/19 10:13 10:13 23:53 WBC RBC 2.81 L Hgb 7.7 L Hct 24.3 L MCV MCH 27 L MCHC RDW 19.0 H Lymph % (Auto) 12.2 L Riley % (Auto) Eos % (Auto) 7.9 H Lymph # 1.0 L Riley # Eos # 0.6 H Seg Neutrophils % 72.3 H Seg Neuts % (Manual) Lymphocytes % (Manual) Eosinophils % (Manual) Seg Neutrophils # Lymphocytes # (Manual) Eosinophils # (Manual) PT INR D-Dimer POC ABG pH POC ABG pCO2 POC ABG pO2 ABG pO2 ABG HCO3 ABG Base Excess ABG Hemoglobin Oxyhemoglobin Sodium Potassium 5.1 H Chloride 96.5 L Carbon Dioxide BUN 73 H Creatinine 3.9 H D Glucose POC Glucose 114 H Calcium 10.3 H Phosphorus 6.30 H Magnesium 2.70 H ALT Alkaline Phosphatase 185 H Total Creatine Kinase CK-MB (CK-2) Rel Index Troponin T Albumin 2.6 L LDL Cholesterol Direct PTH Intact Salicylates Acetaminophen Crossmatch 03/31/19 03/31/19 03/31/19 05:45 10:26 10:26 WBC RBC 3.01 L Hgb 8.2 L Hct 26.4 L MCV MCH 27 L MCHC 31 L RDW 20.3 H Lymph % (Auto) 13.3 L Riley % (Auto) Eos % (Auto) 7.2 H Lymph # 1.1 L Riley # Eos # 0.6 H Seg Neutrophils % 72.1 H Seg Neuts % (Manual) Lymphocytes % (Manual) Eosinophils % (Manual) Seg Neutrophils # Lymphocytes # (Manual) Eosinophils # (Manual) PT INR D-Dimer POC ABG pH POC ABG pCO2 POC ABG pO2 ABG pO2 ABG HCO3 ABG Base Excess ABG Hemoglobin Oxyhemoglobin Sodium Potassium Chloride 96.9 L Carbon Dioxide 33 H BUN 37 H Creatinine 2.4 H Glucose POC Glucose 108 H Calcium 10.3 H Phosphorus Magnesium ALT Alkaline Phosphatase Total Creatine Kinase CK-MB (CK-2) Rel Index Troponin T Albumin LDL Cholesterol Direct PTH Intact Salicylates Acetaminophen Crossmatch 03/31/19 04/01/19 04/01/19 12:38 05:48 12:06 WBC RBC Hgb Hct MCV MCH MCHC RDW Lymph % (Auto) Riley % (Auto) Eos % (Auto) Lymph # Riley # Eos # Seg Neutrophils % Seg Neuts % (Manual) Lymphocytes % (Manual) Eosinophils % (Manual) Seg Neutrophils # Lymphocytes # (Manual) Eosinophils # (Manual) PT INR D-Dimer POC ABG pH POC ABG pCO2 POC ABG pO2 ABG pO2 ABG HCO3 ABG Base Excess ABG Hemoglobin Oxyhemoglobin Sodium Potassium Chloride Carbon Dioxide BUN Creatinine Glucose POC Glucose 108 H 114 H 111 H Calcium Phosphorus Magnesium ALT Alkaline Phosphatase Total Creatine Kinase CK-MB (CK-2) Rel Index Troponin T Albumin LDL Cholesterol Direct PTH Intact Salicylates Acetaminophen Crossmatch 04/01/19 04/02/19 04/04/19 18:24 00:36 23:55 WBC RBC Hgb Hct MCV MCH MCHC RDW Lymph % (Auto) Riley % (Auto) Eos % (Auto) Lymph # Riley # Eos # Seg Neutrophils % Seg Neuts % (Manual) Lymphocytes % (Manual) Eosinophils % (Manual) Seg Neutrophils # Lymphocytes # (Manual) Eosinophils # (Manual) PT INR D-Dimer POC ABG pH POC ABG pCO2 POC ABG pO2 ABG pO2 ABG HCO3 ABG Base Excess ABG Hemoglobin Oxyhemoglobin Sodium Potassium Chloride Carbon Dioxide BUN Creatinine Glucose POC Glucose 113 H 117 H 109 H Calcium Phosphorus Magnesium ALT Alkaline Phosphatase Total Creatine Kinase CK-MB (CK-2) Rel Index Troponin T Albumin LDL Cholesterol Direct PTH Intact Salicylates Acetaminophen Crossmatch 04/06/19 04/06/19 04/06/19 00:11 06:02 23:30 WBC RBC Hgb Hct MCV MCH MCHC RDW Lymph % (Auto) Riley % (Auto) Eos % (Auto) Lymph # Riley # Eos # Seg Neutrophils % Seg Neuts % (Manual) Lymphocytes % (Manual) Eosinophils % (Manual) Seg Neutrophils # Lymphocytes # (Manual) Eosinophils # (Manual) PT INR D-Dimer POC ABG pH POC ABG pCO2 POC ABG pO2 ABG pO2 ABG HCO3 ABG Base Excess ABG Hemoglobin Oxyhemoglobin Sodium Potassium Chloride Carbon Dioxide BUN Creatinine Glucose POC Glucose 116 H 112 H 112 H Calcium Phosphorus Magnesium ALT Alkaline Phosphatase Total Creatine Kinase CK-MB (CK-2) Rel Index Troponin T Albumin LDL Cholesterol Direct PTH Intact Salicylates Acetaminophen Crossmatch 04/08/19 04/08/19 04/08/19 02:23 06:19 13:01 WBC RBC Hgb Hct MCV MCH MCHC RDW Lymph % (Auto) Riley % (Auto) Eos % (Auto) Lymph # Riley # Eos # Seg Neutrophils % Seg Neuts % (Manual) Lymphocytes % (Manual) Eosinophils % (Manual) Seg Neutrophils # Lymphocytes # (Manual) Eosinophils # (Manual) PT INR D-Dimer POC ABG pH POC ABG pCO2 POC ABG pO2 ABG pO2 ABG HCO3 ABG Base Excess ABG Hemoglobin Oxyhemoglobin Sodium Potassium Chloride Carbon Dioxide BUN Creatinine Glucose POC Glucose 144 H 126 H 118 H Calcium Phosphorus Magnesium ALT Alkaline Phosphatase Total Creatine Kinase CK-MB (CK-2) Rel Index Troponin T Albumin LDL Cholesterol Direct PTH Intact Salicylates Acetaminophen Crossmatch 04/08/19 04/09/19 04/10/19 23:28 05:52 06:34 WBC RBC Hgb Hct MCV MCH MCHC RDW Lymph % (Auto) Riley % (Auto) Eos % (Auto) Lymph # Riley # Eos # Seg Neutrophils % Seg Neuts % (Manual) Lymphocytes % (Manual) Eosinophils % (Manual) Seg Neutrophils # Lymphocytes # (Manual) Eosinophils # (Manual) PT INR D-Dimer POC ABG pH POC ABG pCO2 POC ABG pO2 ABG pO2 ABG HCO3 ABG Base Excess ABG Hemoglobin Oxyhemoglobin Sodium Potassium Chloride Carbon Dioxide BUN Creatinine Glucose POC Glucose 119 H 116 H 114 H Calcium Phosphorus Magnesium ALT Alkaline Phosphatase Total Creatine Kinase CK-MB (CK-2) Rel Index Troponin T Albumin LDL Cholesterol Direct PTH Intact Salicylates Acetaminophen Crossmatch 04/10/19 04/10/19 04/11/19 12:34 18:59 00:36 WBC RBC Hgb Hct MCV MCH MCHC RDW Lymph % (Auto) Riley % (Auto) Eos % (Auto) Lymph # Riley # Eos # Seg Neutrophils % Seg Neuts % (Manual) Lymphocytes % (Manual) Eosinophils % (Manual) Seg Neutrophils # Lymphocytes # (Manual) Eosinophils # (Manual) PT INR D-Dimer POC ABG pH POC ABG pCO2 POC ABG pO2 ABG pO2 ABG HCO3 ABG Base Excess ABG Hemoglobin Oxyhemoglobin Sodium Potassium Chloride Carbon Dioxide BUN Creatinine Glucose POC Glucose 112 H 109 H 124 H Calcium Phosphorus Magnesium ALT Alkaline Phosphatase Total Creatine Kinase CK-MB (CK-2) Rel Index Troponin T Albumin LDL Cholesterol Direct PTH Intact Salicylates Acetaminophen Crossmatch 04/11/19 04/11/19 04/12/19 08:01 17:25 02:18 WBC RBC Hgb Hct MCV MCH MCHC RDW Lymph % (Auto) Riley % (Auto) Eos % (Auto) Lymph # Riley # Eos # Seg Neutrophils % Seg Neuts % (Manual) Lymphocytes % (Manual) Eosinophils % (Manual) Seg Neutrophils # Lymphocytes # (Manual) Eosinophils # (Manual) PT INR D-Dimer POC ABG pH POC ABG pCO2 POC ABG pO2 ABG pO2 ABG HCO3 ABG Base Excess ABG Hemoglobin Oxyhemoglobin Sodium Potassium Chloride Carbon Dioxide BUN Creatinine Glucose POC Glucose 118 H 106 H 125 H Calcium Phosphorus Magnesium ALT Alkaline Phosphatase Total Creatine Kinase CK-MB (CK-2) Rel Index Troponin T Albumin LDL Cholesterol Direct PTH Intact Salicylates Acetaminophen Crossmatch 04/12/19 04/12/19 04/12/19 06:24 12:22 17:13 WBC RBC Hgb Hct MCV MCH MCHC RDW Lymph % (Auto) Riley % (Auto) Eos % (Auto) Lymph # Riley # Eos # Seg Neutrophils % Seg Neuts % (Manual) Lymphocytes % (Manual) Eosinophils % (Manual) Seg Neutrophils # Lymphocytes # (Manual) Eosinophils # (Manual) PT INR D-Dimer POC ABG pH POC ABG pCO2 POC ABG pO2 ABG pO2 ABG HCO3 ABG Base Excess ABG Hemoglobin Oxyhemoglobin Sodium Potassium Chloride Carbon Dioxide BUN Creatinine Glucose POC Glucose 128 H 114 H 110 H Calcium Phosphorus Magnesium ALT Alkaline Phosphatase Total Creatine Kinase CK-MB (CK-2) Rel Index Troponin T Albumin LDL Cholesterol Direct PTH Intact Salicylates Acetaminophen Crossmatch 04/13/19 04/13/19 04/13/19 06:59 07:31 07:31 WBC RBC 3.34 L Hgb 8.9 L Hct 28.6 L MCV MCH 27 L MCHC 31 L RDW 19.6 H Lymph % (Auto) Riley % (Auto) Eos % (Auto) Lymph # Riley # Eos # Seg Neutrophils % Seg Neuts % (Manual) Lymphocytes % (Manual) Eosinophils % (Manual) Seg Neutrophils # Lymphocytes # (Manual) Eosinophils # (Manual) PT INR D-Dimer POC ABG pH POC ABG pCO2 POC ABG pO2 ABG pO2 ABG HCO3 ABG Base Excess ABG Hemoglobin Oxyhemoglobin Sodium Potassium Chloride 96.4 L Carbon Dioxide 33 H BUN 66 H Creatinine 4.5 H Glucose 103 H POC Glucose 107 H Calcium Phosphorus Magnesium ALT Alkaline Phosphatase Total Creatine Kinase CK-MB (CK-2) Rel Index Troponin T Albumin LDL Cholesterol Direct PTH Intact Salicylates Acetaminophen Crossmatch 04/13/19 04/14/19 04/14/19 23:43 05:50 13:07 WBC RBC Hgb Hct MCV MCH MCHC RDW Lymph % (Auto) Riley % (Auto) Eos % (Auto) Lymph # Riley # Eos # Seg Neutrophils % Seg Neuts % (Manual) Lymphocytes % (Manual) Eosinophils % (Manual) Seg Neutrophils # Lymphocytes # (Manual) Eosinophils # (Manual) PT INR D-Dimer POC ABG pH POC ABG pCO2 POC ABG pO2 ABG pO2 ABG HCO3 ABG Base Excess ABG Hemoglobin Oxyhemoglobin Sodium Potassium Chloride Carbon Dioxide BUN Creatinine Glucose POC Glucose 119 H 112 H 112 H Calcium Phosphorus Magnesium ALT Alkaline Phosphatase Total Creatine Kinase CK-MB (CK-2) Rel Index Troponin T Albumin LDL Cholesterol Direct PTH Intact Salicylates Acetaminophen Crossmatch 04/14/19 04/15/19 04/15/19 18:35 01:18 05:17 WBC RBC Hgb Hct MCV MCH MCHC RDW Lymph % (Auto) Riley % (Auto) Eos % (Auto) Lymph # Riley # Eos # Seg Neutrophils % Seg Neuts % (Manual) Lymphocytes % (Manual) Eosinophils % (Manual) Seg Neutrophils # Lymphocytes # (Manual) Eosinophils # (Manual) PT INR D-Dimer POC ABG pH POC ABG pCO2 POC ABG pO2 ABG pO2 ABG HCO3 ABG Base Excess ABG Hemoglobin Oxyhemoglobin Sodium Potassium Chloride Carbon Dioxide BUN Creatinine Glucose POC Glucose 114 H 114 H 114 H Calcium Phosphorus Magnesium ALT Alkaline Phosphatase Total Creatine Kinase CK-MB (CK-2) Rel Index Troponin T Albumin LDL Cholesterol Direct PTH Intact Salicylates Acetaminophen Crossmatch 04/15/19 04/15/19 04/16/19 11:50 23:39 05:41 WBC RBC Hgb Hct MCV MCH MCHC RDW Lymph % (Auto) Riley % (Auto) Eos % (Auto) Lymph # Riley # Eos # Seg Neutrophils % Seg Neuts % (Manual) Lymphocytes % (Manual) Eosinophils % (Manual) Seg Neutrophils # Lymphocytes # (Manual) Eosinophils # (Manual) PT INR D-Dimer POC ABG pH POC ABG pCO2 POC ABG pO2 ABG pO2 ABG HCO3 ABG Base Excess ABG Hemoglobin Oxyhemoglobin Sodium Potassium Chloride Carbon Dioxide BUN Creatinine Glucose POC Glucose 109 H 115 H 125 H Calcium Phosphorus Magnesium ALT Alkaline Phosphatase Total Creatine Kinase CK-MB (CK-2) Rel Index Troponin T Albumin LDL Cholesterol Direct PTH Intact Salicylates Acetaminophen Crossmatch 04/16/19 04/17/19 04/17/19 12:53 01:00 12:38 WBC RBC Hgb Hct MCV MCH MCHC RDW Lymph % (Auto) Riley % (Auto) Eos % (Auto) Lymph # Riley # Eos # Seg Neutrophils % Seg Neuts % (Manual) Lymphocytes % (Manual) Eosinophils % (Manual) Seg Neutrophils # Lymphocytes # (Manual) Eosinophils # (Manual) PT INR D-Dimer POC ABG pH POC ABG pCO2 POC ABG pO2 ABG pO2 ABG HCO3 ABG Base Excess ABG Hemoglobin Oxyhemoglobin Sodium Potassium Chloride Carbon Dioxide BUN Creatinine Glucose POC Glucose 121 H 127 H 159 H Calcium Phosphorus Magnesium ALT Alkaline Phosphatase Total Creatine Kinase CK-MB (CK-2) Rel Index Troponin T Albumin LDL Cholesterol Direct PTH Intact Salicylates Acetaminophen Crossmatch 04/17/19 04/17/19 04/18/19 18:27 23:36 07:19 WBC RBC 3.49 L Hgb 9.0 L Hct 29.9 L MCV MCH 26 L MCHC 30 L RDW 20.0 H Lymph % (Auto) Riley % (Auto) Eos % (Auto) Lymph # Riley # Eos # Seg Neutrophils % Seg Neuts % (Manual) Lymphocytes % (Manual) Eosinophils % (Manual) Seg Neutrophils # Lymphocytes # (Manual) Eosinophils # (Manual) PT INR D-Dimer POC ABG pH POC ABG pCO2 POC ABG pO2 ABG pO2 ABG HCO3 ABG Base Excess ABG Hemoglobin Oxyhemoglobin Sodium Potassium Chloride Carbon Dioxide BUN Creatinine Glucose POC Glucose 109 H 134 H Calcium Phosphorus Magnesium ALT Alkaline Phosphatase Total Creatine Kinase CK-MB (CK-2) Rel Index Troponin T Albumin LDL Cholesterol Direct PTH Intact Salicylates Acetaminophen Crossmatch 04/18/19 04/18/19 04/18/19 07:19 12:16 17:09 WBC RBC Hgb Hct MCV MCH MCHC RDW Lymph % (Auto) Riley % (Auto) Eos % (Auto) Lymph # Riley # Eos # Seg Neutrophils % Seg Neuts % (Manual) Lymphocytes % (Manual) Eosinophils % (Manual) Seg Neutrophils # Lymphocytes # (Manual) Eosinophils # (Manual) PT INR D-Dimer POC ABG pH POC ABG pCO2 POC ABG pO2 ABG pO2 ABG HCO3 ABG Base Excess ABG Hemoglobin Oxyhemoglobin Sodium Potassium Chloride Carbon Dioxide BUN 41 H Creatinine 2.9 H Glucose 122 H POC Glucose 125 H 131 H Calcium Phosphorus Magnesium ALT Alkaline Phosphatase Total Creatine Kinase CK-MB (CK-2) Rel Index Troponin T Albumin LDL Cholesterol Direct PTH Intact Salicylates Acetaminophen Crossmatch 04/18/19 04/19/19 04/19/19 23:57 05:55 11:35 WBC RBC Hgb Hct MCV MCH MCHC RDW Lymph % (Auto) Riley % (Auto) Eos % (Auto) Lymph # Riley # Eos # Seg Neutrophils % Seg Neuts % (Manual) Lymphocytes % (Manual) Eosinophils % (Manual) Seg Neutrophils # Lymphocytes # (Manual) Eosinophils # (Manual) PT INR D-Dimer POC ABG pH POC ABG pCO2 POC ABG pO2 ABG pO2 ABG HCO3 ABG Base Excess ABG Hemoglobin Oxyhemoglobin Sodium Potassium Chloride Carbon Dioxide BUN Creatinine Glucose POC Glucose 159 H 144 H 177 H Calcium Phosphorus Magnesium ALT Alkaline Phosphatase Total Creatine Kinase CK-MB (CK-2) Rel Index Troponin T Albumin LDL Cholesterol Direct PTH Intact Salicylates Acetaminophen Crossmatch 04/19/19 04/20/19 04/20/19 16:36 02:05 06:28 WBC RBC Hgb Hct MCV MCH MCHC RDW Lymph % (Auto) Riley % (Auto) Eos % (Auto) Lymph # Riley # Eos # Seg Neutrophils % Seg Neuts % (Manual) Lymphocytes % (Manual) Eosinophils % (Manual) Seg Neutrophils # Lymphocytes # (Manual) Eosinophils # (Manual) PT INR D-Dimer POC ABG pH POC ABG pCO2 POC ABG pO2 ABG pO2 ABG HCO3 ABG Base Excess ABG Hemoglobin Oxyhemoglobin Sodium Potassium Chloride Carbon Dioxide BUN Creatinine Glucose POC Glucose 134 H 142 H 132 H Calcium Phosphorus Magnesium ALT Alkaline Phosphatase Total Creatine Kinase CK-MB (CK-2) Rel Index Troponin T Albumin LDL Cholesterol Direct PTH Intact Salicylates Acetaminophen Crossmatch 04/20/19 04/20/19 04/21/19 12:37 23:34 05:59 WBC RBC Hgb Hct MCV MCH MCHC RDW Lymph % (Auto) Riley % (Auto) Eos % (Auto) Lymph # Riley # Eos # Seg Neutrophils % Seg Neuts % (Manual) Lymphocytes % (Manual) Eosinophils % (Manual) Seg Neutrophils # Lymphocytes # (Manual) Eosinophils # (Manual) PT INR D-Dimer POC ABG pH POC ABG pCO2 POC ABG pO2 ABG pO2 ABG HCO3 ABG Base Excess ABG Hemoglobin Oxyhemoglobin Sodium Potassium Chloride Carbon Dioxide BUN Creatinine Glucose POC Glucose 163 H 166 H 140 H Calcium Phosphorus Magnesium ALT Alkaline Phosphatase Total Creatine Kinase CK-MB (CK-2) Rel Index Troponin T Albumin LDL Cholesterol Direct PTH Intact Salicylates Acetaminophen Crossmatch 04/21/19 04/21/19 04/21/19 12:07 17:22 23:43 WBC RBC Hgb Hct MCV MCH MCHC RDW Lymph % (Auto) Riley % (Auto) Eos % (Auto) Lymph # Riley # Eos # Seg Neutrophils % Seg Neuts % (Manual) Lymphocytes % (Manual) Eosinophils % (Manual) Seg Neutrophils # Lymphocytes # (Manual) Eosinophils # (Manual) PT INR D-Dimer POC ABG pH POC ABG pCO2 POC ABG pO2 ABG pO2 ABG HCO3 ABG Base Excess ABG Hemoglobin Oxyhemoglobin Sodium Potassium Chloride Carbon Dioxide BUN Creatinine Glucose POC Glucose 135 H 141 H 138 H Calcium Phosphorus Magnesium ALT Alkaline Phosphatase Total Creatine Kinase CK-MB (CK-2) Rel Index Troponin T Albumin LDL Cholesterol Direct PTH Intact Salicylates Acetaminophen Crossmatch 04/22/19 04/22/19 04/22/19 05:12 18:24 23:49 WBC RBC Hgb Hct MCV MCH MCHC RDW Lymph % (Auto) Riley % (Auto) Eos % (Auto) Lymph # Riley # Eos # Seg Neutrophils % Seg Neuts % (Manual) Lymphocytes % (Manual) Eosinophils % (Manual) Seg Neutrophils # Lymphocytes # (Manual) Eosinophils # (Manual) PT INR D-Dimer POC ABG pH POC ABG pCO2 POC ABG pO2 ABG pO2 ABG HCO3 ABG Base Excess ABG Hemoglobin Oxyhemoglobin Sodium Potassium Chloride Carbon Dioxide BUN Creatinine Glucose POC Glucose 141 H 137 H 142 H Calcium Phosphorus Magnesium ALT Alkaline Phosphatase Total Creatine Kinase CK-MB (CK-2) Rel Index Troponin T Albumin LDL Cholesterol Direct PTH Intact Salicylates Acetaminophen Crossmatch 04/23/19 04/23/19 04/23/19 05:53 08:13 11:58 WBC RBC Hgb Hct MCV MCH MCHC RDW Lymph % (Auto) Riley % (Auto) Eos % (Auto) Lymph # Riley # Eos # Seg Neutrophils % Seg Neuts % (Manual) Lymphocytes % (Manual) Eosinophils % (Manual) Seg Neutrophils # Lymphocytes # (Manual) Eosinophils # (Manual) PT INR D-Dimer POC ABG pH POC ABG pCO2 POC ABG pO2 ABG pO2 ABG HCO3 ABG Base Excess ABG Hemoglobin Oxyhemoglobin Sodium Potassium Chloride Carbon Dioxide BUN Creatinine Glucose POC Glucose 132 H 154 H 165 H Calcium Phosphorus Magnesium ALT Alkaline Phosphatase Total Creatine Kinase CK-MB (CK-2) Rel Index Troponin T Albumin LDL Cholesterol Direct PTH Intact Salicylates Acetaminophen Crossmatch 04/23/19 04/24/19 04/24/19 16:28 00:28 07:00 WBC RBC Hgb Hct MCV MCH MCHC RDW Lymph % (Auto) Riley % (Auto) Eos % (Auto) Lymph # Riley # Eos # Seg Neutrophils % Seg Neuts % (Manual) Lymphocytes % (Manual) Eosinophils % (Manual) Seg Neutrophils # Lymphocytes # (Manual) Eosinophils # (Manual) PT INR D-Dimer POC ABG pH POC ABG pCO2 POC ABG pO2 ABG pO2 ABG HCO3 ABG Base Excess ABG Hemoglobin Oxyhemoglobin Sodium Potassium Chloride Carbon Dioxide BUN Creatinine Glucose POC Glucose 136 H 140 H 141 H Calcium Phosphorus Magnesium ALT Alkaline Phosphatase Total Creatine Kinase CK-MB (CK-2) Rel Index Troponin T Albumin LDL Cholesterol Direct PTH Intact Salicylates Acetaminophen Crossmatch 04/24/19 04/24/19 04/25/19 12:38 18:57 00:38 WBC RBC Hgb Hct MCV MCH MCHC RDW Lymph % (Auto) Riley % (Auto) Eos % (Auto) Lymph # Riley # Eos # Seg Neutrophils % Seg Neuts % (Manual) Lymphocytes % (Manual) Eosinophils % (Manual) Seg Neutrophils # Lymphocytes # (Manual) Eosinophils # (Manual) PT INR D-Dimer POC ABG pH POC ABG pCO2 POC ABG pO2 ABG pO2 ABG HCO3 ABG Base Excess ABG Hemoglobin Oxyhemoglobin Sodium Potassium Chloride Carbon Dioxide BUN Creatinine Glucose POC Glucose 152 H 166 H 128 H Calcium Phosphorus Magnesium ALT Alkaline Phosphatase Total Creatine Kinase CK-MB (CK-2) Rel Index Troponin T Albumin LDL Cholesterol Direct PTH Intact Salicylates Acetaminophen Crossmatch 04/25/19 04/25/19 04/25/19 05:44 13:43 18:34 WBC RBC Hgb Hct MCV MCH MCHC RDW Lymph % (Auto) Riley % (Auto) Eos % (Auto) Lymph # Riley # Eos # Seg Neutrophils % Seg Neuts % (Manual) Lymphocytes % (Manual) Eosinophils % (Manual) Seg Neutrophils # Lymphocytes # (Manual) Eosinophils # (Manual) PT INR D-Dimer POC ABG pH POC ABG pCO2 POC ABG pO2 ABG pO2 ABG HCO3 ABG Base Excess ABG Hemoglobin Oxyhemoglobin Sodium Potassium Chloride Carbon Dioxide BUN Creatinine Glucose POC Glucose 153 H 186 H 124 H Calcium Phosphorus Magnesium ALT Alkaline Phosphatase Total Creatine Kinase CK-MB (CK-2) Rel Index Troponin T Albumin LDL Cholesterol Direct PTH Intact Salicylates Acetaminophen Crossmatch 04/26/19 04/26/19 04/26/19 00:59 05:52 10:12 WBC 11.5 H RBC 2.84 L Hgb 7.4 L Hct 23.3 L MCV 82 L MCH 26 L MCHC RDW 20.3 H Lymph % (Auto) 7.5 L Riley % (Auto) 7.5 H Eos % (Auto) 5.3 H Lymph # 0.9 L Riley # 0.9 H Eos # 0.6 H Seg Neutrophils % 79.2 H Seg Neuts % (Manual) Lymphocytes % (Manual) Eosinophils % (Manual) Seg Neutrophils # 9.1 H Lymphocytes # (Manual) Eosinophils # (Manual) PT INR D-Dimer POC ABG pH POC ABG pCO2 POC ABG pO2 ABG pO2 ABG HCO3 ABG Base Excess ABG Hemoglobin Oxyhemoglobin Sodium Potassium Chloride Carbon Dioxide BUN Creatinine Glucose POC Glucose 163 H 146 H Calcium Phosphorus Magnesium ALT Alkaline Phosphatase Total Creatine Kinase CK-MB (CK-2) Rel Index Troponin T Albumin LDL Cholesterol Direct PTH Intact Salicylates Acetaminophen Crossmatch 04/26/19 04/26/19 04/26/19 10:12 12:15 19:00 WBC RBC Hgb Hct MCV MCH MCHC RDW Lymph % (Auto) Riley % (Auto) Eos % (Auto) Lymph # Riley # Eos # Seg Neutrophils % Seg Neuts % (Manual) Lymphocytes % (Manual) Eosinophils % (Manual) Seg Neutrophils # Lymphocytes # (Manual) Eosinophils # (Manual) PT INR D-Dimer POC ABG pH POC ABG pCO2 POC ABG pO2 ABG pO2 ABG HCO3 ABG Base Excess ABG Hemoglobin Oxyhemoglobin Sodium 130 L Potassium Chloride 87.4 L Carbon Dioxide BUN 93 H Creatinine 4.2 H Glucose 140 H POC Glucose 155 H 179 H Calcium Phosphorus Magnesium ALT Alkaline Phosphatase Total Creatine Kinase CK-MB (CK-2) Rel Index Troponin T Albumin LDL Cholesterol Direct PTH Intact Salicylates Acetaminophen Crossmatch 04/27/19 04/27/19 04/27/19 00:23 06:34 17:13 WBC RBC Hgb Hct MCV MCH MCHC RDW Lymph % (Auto) Riley % (Auto) Eos % (Auto) Lymph # Riley # Eos # Seg Neutrophils % Seg Neuts % (Manual) Lymphocytes % (Manual) Eosinophils % (Manual) Seg Neutrophils # Lymphocytes # (Manual) Eosinophils # (Manual) PT INR D-Dimer POC ABG pH POC ABG pCO2 POC ABG pO2 ABG pO2 ABG HCO3 ABG Base Excess ABG Hemoglobin Oxyhemoglobin Sodium Potassium Chloride Carbon Dioxide BUN Creatinine Glucose POC Glucose 158 H 140 H 152 H Calcium Phosphorus Magnesium ALT Alkaline Phosphatase Total Creatine Kinase CK-MB (CK-2) Rel Index Troponin T Albumin LDL Cholesterol Direct PTH Intact Salicylates Acetaminophen Crossmatch 04/27/19 04/28/19 23:50 05:18 WBC RBC Hgb Hct MCV MCH MCHC RDW Lymph % (Auto) Riley % (Auto) Eos % (Auto) Lymph # Riley # Eos # Seg Neutrophils % Seg Neuts % (Manual) Lymphocytes % (Manual) Eosinophils % (Manual) Seg Neutrophils # Lymphocytes # (Manual) Eosinophils # (Manual) PT INR D-Dimer POC ABG pH POC ABG pCO2 POC ABG pO2 ABG pO2 ABG HCO3 ABG Base Excess ABG Hemoglobin Oxyhemoglobin Sodium Potassium Chloride Carbon Dioxide BUN Creatinine Glucose POC Glucose 160 H 145 H Calcium Phosphorus Magnesium ALT Alkaline Phosphatase Total Creatine Kinase CK-MB (CK-2) Rel Index Troponin T Albumin LDL Cholesterol Direct PTH Intact Salicylates Acetaminophen Crossmatch
[2019-04-28] MEDS: FAMOTIDINE 20 MG TAB PO SCH (11:59)
[2019-04-28] MEDS: SERTRALINE 100 MG TAB PO SCH (11:59)
[2019-04-28] MEDS: risperiDONE 1 MG TAB PO SCH (12:00)
--- NOTE | 2019-04-28 12:28 | Progress Note ---
Assessment and Plan Assessment: * End stage renal disease (outpatient TTS schedule) * Acute hypoxic respiratory failure on mechanical ventilation * Atrial fibrillation * History of CVA * Anemia secondary to ESRD * Secondary hyperparathyroidism Plan * Continue HD MWF schedule for now while inpatient * UF as tolerated; reviewed pulmonary notes and CXR * AVG in use. A * Empiric abx per ID/primary team * Nutrition per primary team * Dose medications for renal function * Epogen TID Overall prognosis remains poor; will continue to follow for ESRD needs while inpatient. Subjective Date of service: 04/28/19 Principal diagnosis: Respiratory failure, acute on chronic systolic HF, ESRD Interval history: no acute events Objective - Exam Narrative Exam: General appearance: chronically ill, intubated, frail EENT: normocephalic Neck: ETT in place Respiratory: coarse mechanical breath sounds bilaterally Cardiology: regular, S1S2, no edema Gastrointestinal: PEG and colostomy noted Integumentary: warm and dry Psychiatric: unable to assess - Vital Signs Vital signs: Vital Signs - 12hr 04/28/19 04/28/19 04/28/19 05:03 05:04 06:02 Temperature 97.7 F Pulse Rate 98 H Pulse Rate [ Anterior Bilateral Throughout] Pulse Rate [ Posterior Bilateral Throughout] Respiratory 18 Rate Respiratory Rate [Anterior Bilateral Throughout] Respiratory Rate [Posterior Bilateral Throughout] Blood Pressure 118/53 O2 Sat by Pulse 98 96 Oximetry O2 Sat by Pulse 96 Oximetry [ Assessment] 04/28/19 04/28/19 04/28/19 07:41 08:32 08:34 Temperature 98.3 F Pulse Rate Pulse Rate [ 99 H Anterior Bilateral Throughout] Pulse Rate [ 97 H Posterior Bilateral Throughout] Respiratory 18 Rate Respiratory 18 Rate [Anterior Bilateral Throughout] Respiratory 20 Rate [Posterior Bilateral Throughout] Blood Pressure 114/59 O2 Sat by Pulse Oximetry O2 Sat by Pulse 98 Oximetry [ Assessment] 04/28/19 04/28/19 08:44 11:27 Temperature Pulse Rate 98 H Pulse Rate [ Anterior Bilateral Throughout] Pulse Rate [ Posterior Bilateral Throughout] Respiratory Rate Respiratory Rate [Anterior Bilateral Throughout] Respiratory Rate [Posterior Bilateral Throughout] Blood Pressure 116/57 O2 Sat by Pulse 98 97 Oximetry O2 Sat by Pulse Oximetry [ Assessment] - Lab 04/26/19 10:12 04/26/19 10:12 Most recent lab results ABG pH 7.424 pH Units (7.350-7.450) 03/19/19 04:23 ABG pCO2 48.0 mm Hg 03/19/19 04:23 ABG pO2 78.3 mm Hg (80.0-90.0) L 03/19/19 04:23 ABG HCO3 30.7 mmol/L (20.0-26.0) H 03/19/19 04:23 ABG O2 Saturation 97.0 % (95.0-99.0) 03/19/19 04:23 Calcium 10.0 mg/dL (8.4-10.2) 04/26/19 10:12 Phosphorus 4.30 mg/dL (2.5-4.5) D 03/31/19 10:26 Magnesium 2.70 mg/dL (1.7-2.3) H 03/30/19 10:13 Medications & Allergies - Medications Allergies/Adverse Reactions: Allergies haloperidol [From Haldol] Adverse Reaction (Verified 03/13/18 12:10) Unknown haloperidol lactate [From Haldol] Adverse Reaction (Verified 03/13/18 12:10) Unknown Home Medications: Home Medications Medication Instructions Recorded Confirmed Last Taken Type risperiDONE [RisperDAL] 1 mg PO QAM 03/13/18 02/21/19 Unknown History Sertraline [Zoloft] 100 mg PO QDAY 08/26/18 02/21/19 Unknown History Polyethylene Glycol 3350 [Miralax 17 gm PO QDAY #30 packet 11/05/18 02/21/19 Unknown Rx 3350] Aspirin EC [Halfprin EC] 81 mg PO DAILY #30 11/19/18 02/21/19 Unknown Rx Docusate Sodium [Colace CAP] 100 mg PO BID #60 11/19/18 02/21/19 Unknown Rx Folic Acid [Folvite] 1 mg PO DAILY #30 tab 11/19/18 02/21/19 Unknown Rx Famotidine [Pepcid] 20 mg PO DAILY tablet 12/08/18 02/21/19 Unknown Rx Gabapentin [Neurontin] 100 mg PO QHS capsule 12/08/18 02/21/19 Unknown Rx Metoprolol [Lopressor TAB] 50 mg PO BID 30 Days tablet 12/08/18 02/21/19 Unknown Rx Sevelamer Carbonate [Renvela] 800 mg PO TIDWM tablet 12/08/18 02/21/19 Unknown Rx hydrALAZINE [Apresoline TAB] 100 mg PO Q8HR #120 tablet 12/08/18 02/21/19 Unknown Rx Acetaminophen [Acetaminophen TAB] 650 mg PO Q12H PRN 12/15/18 02/21/19 Unknown History Glucagon,Human Recombinant 1 mg IJ Q15MIN PRN 12/15/18 02/21/19 Unknown History [Glucagon Emergency Kit] Insulin Aspart [NovoLOG 100 See Protocol SQ QWEEK 12/15/18 02/21/19 Unknown History UNITS/ML VIAL] Active Medications: Generic Name Dose Route Start Last Admin Trade Name Freq PRN Reason Stop Dose Admin Albuterol/Ipratropium 1 ampul 02/24/19 20:00 04/28/19 08:28 Duoneb *Not For Prn Use* IH 1 ampul TIDRT SANCHEZ Administration Lipase/Protease/Amylase 1 each 04/10/19 15:16 Pancreaze 10,500 Unit FEEDTUBE PRN PRN For Clogged Feeding Tube Epoetin Solitario 20,000 unit 03/24/19 11:17 04/27/19 12:56 Procrit IV 20,000 unit UMA PRN Administration hemodialysis Famotidine 20 mg 02/23/19 10:00 04/28/19 11:59 Pepcid PO 20 mg DAILY SANCHEZ Administration Insulin Human Regular 0 units 02/26/19 12:00 04/28/19 12:00 Humulin R SUB-Q 1 units Q6HR SANCHEZ Administration Protocol Metoprolol Tartrate 2.5 mg 02/28/19 12:06 03/15/19 05:15 Lopressor IV 2.5 mg Q4HR PRN Administration Tachycardia Risperidone 1 mg 02/25/19 13:00 04/28/19 12:00 Risperdal PO 1 mg DAILY SANCHEZ Administration Sertraline HCl 100 mg 02/25/19 13:00 04/28/19 11:59 Zoloft PO 100 mg DAILY SANCHEZ Administration Simple Syrup 15 ml 04/10/19 15:16 Simple Syrup FEEDTUBE PRN PRN Hypoglycemia Simple Syrup 30 ml 04/10/19 15:16 Simple Syrup FEEDTUBE PRN PRN Hypoglycemia Sodium Bicarbonate 325 mg 04/10/19 15:16 Sodium Bicarbonate FEEDTUBE PRN PRN For Clogged Feeding Tube Sodium Hypochlorite 1 applic 04/01/19 13:00 04/28/19 11:11 Dakin's Half Strength TP Not Given BID SANCHEZ
--- NOTE | 2019-04-28 15:48 | Progress Note ---
Assessment and Plan Assessment and plan: Patient is 63-year-old -German male patient from [facility] with multiple co-morbidities including blindness, CVA, CHF, PPM/ICD, loop recorder since 2012 that is MRI compatible, IDDM type 2, sepsis left foot ulcer, afib, ESRD with complications on HD TTS, hypertension, AOCD and GERD who presented to the ED with hypotensive after intubation in the emergency room. diagnosed with fluid overload, pleural effusion. Patient has had recurrent admission in the hospital for similar reason and was recently discharged from the hospital following treatment of Severe Sepsis due to Necrotizing Unstagable sacral decubitus ulcer with ostemomylitis, has received multiple courses of broad spectrum abx. Acute hypoxic respiratory failure, status post intubation and ventilatory support, now off vent, on T-piece Acute respiratory failure on mechanical ventilator >96 hrs Extubated ; history of tracheostomy on T piece Current management , nebulizers, Currently on trach/peg placed on 03/03. Now off vent, cont oxygen supplement, improving, on t piece, nebulizers, pulmonary critical following acute on chronic systolic CHF/ Acute pulmonary edema, HD per schedule Dilated CMP, EF 35-40% Continue diuresis, supportive care Acute metabolic encephalopathy, resolved, has baseline Dementia. --ESRD on hemodialysis per schedule nephrology following --Bilateral pleural effusions improved with HD --Permanent atrial fibrillation and flutter and hypercoaguable state Not on anticoagulation because of anemia thrombocytopenia rate control meds optimized --Diabetes mellitus type 2 Accu-Chek sliding scale coverage Insulin as needed --NSTEMI type 2 , Cardiology following --Schizophrenia:stable --Legally blind, supportive care --hypertension, Monitor BP,'s adjust medications as needed --Hypokalemia; corrected --Pulmonary hypertension; continue current management --Dysphagia s/p PEG tube; PEG tubes per protocol --Sacral decub ulcer; Wound care --Severe malnutrition /hypoalbuminemia with FTT: 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, 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 History Interval history: Patient was seen and evaluated this morning, Patient is on PEG and trach. Hospitalist Physical - Physical exam Narrative exam: Patient is on trach and PEG The patient appeared well nourished and normally developed. Vital signs as documented. Head exam is unremarkable. No scleral icterus . Neck is without jugular venous distension, thyromegaly, or carotid bruits. Lungs are clear to auscultation. Cardiac exam reveals regular rate and Rhythm. First and second heart sounds normal. No murmurs, rubs or gallops. Abdominal exam reveals PEG tube in place, colostomy bag in place. Extremities are nonedematous and both femoral and pedal pulses are normal. 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 - Constitutional Vitals: Temp Pulse Resp BP Pulse Ox 98.3 F 100 H 18 116/57 99 04/28/19 07:41 04/28/19 13:49 04/28/19 13:49 04/28/19 11:27 04/28/19 13:53 General appearance: Present: no acute distress, well-nourished, other (T peace) Results - Labs CBC & Chem 7: 04/26/19 10:12 04/26/19 10:12 Labs: Laboratory Last Values WBC 11.5 K/mm3 (4.5-11.0) H 04/26/19 10:12 RBC 2.84 M/mm3 (3.65-5.03) L 04/26/19 10:12 Hgb 7.4 gm/dl (11.8-15.2) L 04/26/19 10:12 Hct 23.3 % (35.5-45.6) L 04/26/19 10:12 MCV 82 fl (84-94) L 04/26/19 10:12 MCH 26 pg (28-32) L 04/26/19 10:12 MCHC 32 % (32-34) 04/26/19 10:12 RDW 20.3 % (13.2-15.2) H 04/26/19 10:12 Plt Count 350 K/mm3 (140-440) 04/26/19 10:12 Lymph % (Auto) 7.5 % (13.4-35.0) L 04/26/19 10:12 Ogle % (Auto) 7.5 % (0.0-7.3) H 04/26/19 10:12 Eos % (Auto) 5.3 % (0.0-4.3) H 04/26/19 10:12 Baso % (Auto) 0.5 % (0.0-1.8) 04/26/19 10:12 Lymph # 0.9 K/mm3 (1.2-5.4) L 04/26/19 10:12 Ogle # 0.9 K/mm3 (0.0-0.8) H 04/26/19 10:12 Eos # 0.6 K/mm3 (0.0-0.4) H 04/26/19 10:12 Baso # 0.1 K/mm3 (0.0-0.1) 04/26/19 10:12 Add Manual Diff Complete 03/21/19 06:30 Total Counted 100 03/21/19 06:30 Seg Neutrophils % 79.2 % (40.0-70.0) H 04/26/19 10:12 Seg Neuts % (Manual) 81.0 % (40.0-70.0) H 03/21/19 06:30 Band Neutrophils % 0 % 03/21/19 06:30 Lymphocytes % (Manual) 8.0 % (13.4-35.0) L 03/21/19 06:30 Reactive Lymphs % (Man) 0 % 03/21/19 06:30 Monocytes % (Manual) 1.0 % (0.0-7.3) 03/21/19 06:30 Eosinophils % (Manual) 8.0 % (0.0-4.3) H 03/21/19 06:30 Basophils % (Manual) 1.0 % (0.0-1.8) 03/21/19 06:30 Metamyelocytes % 1.0 % 03/21/19 06:30 Myelocytes % 0 % 03/21/19 06:30 Promyelocytes % 0 % 03/21/19 06:30 Blast Cells % 0 % 03/21/19 06:30 Nucleated RBC % Not Reportable 03/21/19 06:30 Seg Neutrophils # 9.1 K/mm3 (1.8-7.7) H 04/26/19 10:12 Seg Neutrophils # Man 6.7 K/mm3 (1.8-7.7) 03/21/19 06:30 Band Neutrophils # 0.0 K/mm3 03/21/19 06:30 Lymphocytes # (Manual) 0.7 K/mm3 (1.2-5.4) L 03/21/19 06:30 Abs React Lymphs (Man) 0.0 K/mm3 03/21/19 06:30 Monocytes # (Manual) 0.1 K/mm3 (0.0-0.8) 03/21/19 06:30 Eosinophils # (Manual) 0.7 K/mm3 (0.0-0.4) H 03/21/19 06:30 Basophils # (Manual) 0.1 K/mm3 (0.0-0.1) 03/21/19 06:30 Metamyelocytes # 0.1 K/mm3 03/21/19 06:30 Myelocytes # 0.0 K/mm3 03/21/19 06:30 Promyelocytes # 0.0 K/mm3 03/21/19 06:30 Blast Cells # 0.0 K/mm3 03/21/19 06:30 WBC Morphology Not Reportable 03/21/19 06:30 Hypersegmented Neuts Not Reportable 03/21/19 06:30 Hyposegmented Neuts Not Reportable 03/21/19 06:30 Hypogranular Neuts Not Reportable 03/21/19 06:30 Smudge Cells Not Reportable 03/21/19 06:30 Toxic Granulation Not Reportable 03/21/19 06:30 Toxic Vacuolation Not Reportable 03/21/19 06:30 Dohle Bodies Not Reportable 03/21/19 06:30 Pelger-Huet Anomaly Not Reportable 03/21/19 06:30 Tramaine Rods Not Reportable 03/21/19 06:30 Platelet Estimate Consistent w auto 03/21/19 06:30 Clumped Platelets Not Reportable 03/21/19 06:30 Plt Clumps, EDTA Not Reportable 03/21/19 06:30 Large Platelets Not Reportable 03/21/19 06:30 Giant Platelets Not Reportable 03/21/19 06:30 Platelet Satelliting Not Reportable 03/21/19 06:30 Plt Morphology Comment Not Reportable 03/21/19 06:30 RBC Morphology Not Reportable 03/21/19 06:30 Dimorphic RBCs Not Reportable 03/21/19 06:30 Polychromasia Not Reportable 03/21/19 06:30 Hypochromasia Few 03/21/19 06:30 Poikilocytosis Few 03/21/19 06:30 Anisocytosis Few 03/21/19 06:30 Microcytosis Not Reportable 03/21/19 06:30 Macrocytosis Not Reportable 03/21/19 06:30 Spherocytes Not Reportable 03/21/19 06:30 Pappenheimer Bodies Not Reportable 03/21/19 06:30 Sickle Cells Not Reportable 03/21/19 06:30 Target Cells 1+ 03/21/19 06:30 Tear Drop Cells Not Reportable 03/21/19 06:30 Ovalocytes Few 03/21/19 06:30 Helmet Cells Not Reportable 03/21/19 06:30 [place] Bodies Not Reportable 03/21/19 06:30 [place] Rings Not Reportable 03/21/19 06:30 [place] Cells Not Reportable 03/21/19 06:30 Bite Cells Not Reportable 03/21/19 06:30 Crenated Cell Not Reportable 03/21/19 06:30 Elliptocytes Not Reportable 03/21/19 06:30 Acanthocytes (Spur) Not Reportable 03/21/19 06:30 Rouleaux Not Reportable 03/21/19 06:30 Hemoglobin C Crystals Not Reportable 03/21/19 06:30 Schistocytes Not Reportable 03/21/19 06:30 Malaria parasites Not Reportable 03/21/19 06:30 Jose Juan Bodies Not Reportable 03/21/19 06:30 Hem Pathologist Commnt No 03/21/19 06:30 PT 16.3 Sec. (12.2-14.9) H 03/01/19 09:39 INR 1.35 (0.87-1.13) H 03/01/19 09:39 APTT 33.7 Sec. (24.2-36.6) 02/21/19 18:30 D-Dimer 2987.82 ng/mlDDU (0-234) H 02/22/19 05:54 POC ABG pH 7.510 (7.35-7.45) H 03/18/19 06:38 ABG pH 7.424 pH Units (7.350-7.450) 03/19/19 04:23 POC ABG pCO2 38.9 (35-45) 03/18/19 06:38 ABG pCO2 48.0 mm Hg 03/19/19 04:23 POC ABG pO2 164 (80-105) H 03/18/19 06:38 ABG pO2 78.3 mm Hg (80.0-90.0) L 03/19/19 04:23 POC ABG HCO3 31.0 (22-26 mml/L) 03/18/19 06:38 ABG HCO3 30.7 mmol/L (20.0-26.0) H 03/19/19 04:23 POC ABG Total CO2 32 (23-27mmol/L) 03/18/19 06:38 POC ABG O2 Sat 100 03/18/19 06:38 ABG O2 Saturation 97.0 % (95.0-99.0) 03/19/19 04:23 ABG O2 Content 7.9 (0.0-44) 03/19/19 04:23 POC ABG Base Excess 8 ((-2) - (+3)mmol/L) 03/18/19 06:38 ABG Base Excess 5.8 mmol/L (-2.0-3.0) H 03/19/19 04:23 ABG Hemoglobin 5.8 gm/dl (14.0-18.0) L 03/19/19 04:23 ABG Carboxyhemoglobin 2.0 % (0.0-5.0) 03/19/19 04:23 ABG Methemoglobin 0.4 % (0.0-1.5) 03/19/19 04:23 Oxyhemoglobin 94.6 % (95.0-99.0) L 03/19/19 04:23 FiO2 35 % 03/19/19 04:23 Sodium 130 mmol/L (137-145) L 04/26/19 10:12 Potassium 4.2 mmol/L (3.6-5.0) 04/26/19 10:12 Chloride 87.4 mmol/L (98-107) L 04/26/19 10:12 Carbon Dioxide 28 mmol/L (22-30) 04/26/19 10:12 Anion Gap 19 mmol/L 04/26/19 10:12 BUN 93 mg/dL (9-20) H 04/26/19 10:12 Creatinine 4.2 mg/dL (0.8-1.5) H 04/26/19 10:12 Estimated GFR 17 ml/min 04/26/19 10:12 BUN/Creatinine Ratio 22 % 04/26/19 10:12 Glucose 140 mg/dL (75-100) H 04/26/19 10:12 POC Glucose 177 (70-105) H 04/28/19 11:37 Lactic Acid 1.00 mmol/L (0.7-2.0) 02/21/19 20:58 Calcium 10.0 mg/dL (8.4-10.2) 04/26/19 10:12 Phosphorus 4.30 mg/dL (2.5-4.5) D 03/31/19 10:26 Magnesium 2.70 mg/dL (1.7-2.3) H 03/30/19 10:13 Total Bilirubin 0.20 mg/dL (0.1-1.2) 03/30/19 10:13 AST 16 units/L (5-40) 03/30/19 10:13 ALT 11 units/L (7-56) 03/30/19 10:13 Alkaline Phosphatase 185 units/L (35-129) H 03/30/19 10:13 Ammonia 28.0 umol/L (25-60) 02/21/19 20:04 Total Creatine Kinase 64 units/L (55-170) 02/22/19 03:42 CK-MB (CK-2) 3.7 ng/mL (0.0-4.0) 02/22/19 03:42 CK-MB (CK-2) Rel Index 5.7 (0-4) H 02/22/19 03:42 Troponin T 0.193 ng/mL (0.00-0.029) H* 02/22/19 03:42 Total Protein 6.9 g/dL (6.3-8.2) 03/30/19 10:13 Albumin 2.6 g/dL (3.9-5) L 03/30/19 10:13 Albumin/Globulin Ratio 0.6 % 03/30/19 10:13 Triglycerides 51 mg/dL (2-149) 02/21/19 18:30 Cholesterol 82 mg/dL (50-199) 02/21/19 18:30 LDL Cholesterol Direct 36 mg/dL (50-130) L 02/21/19 18:30 HDL Cholesterol 40 mg/dL (40-59) 02/21/19 18:30 Cholesterol/HDL Ratio 2.05 % 02/21/19 18:30 TSH 2.760 mlU/mL (0.270-4.200) 02/21/19 20:04 PTH Intact 267.6 pg/mL (15-65) H 03/02/19 05:15 Salicylates < 0.3 mg/dL (2.8-20.0) L 02/21/19 20:04 Acetaminophen < 5.0 ug/mL (10.0-30.0) L 02/21/19 20:04 Hepatitis A IgM Ab Non-reactive (NonReactive) 03/31/19 22:56 Hep Bs Antigen Non-reactive (Negative) 03/31/19 22:56 Hep B Core IgM Ab Non-reactive (NonReactive) 03/31/19 22:56 Hepatitis C Antibody Non-reactive (NonReactive) 03/31/19 22:56 Blood Type O POSITIVE 03/22/19 08:48 Antibody Screen Negative 03/22/19 08:48 Crossmatch See Detail 03/22/19 08:48 Active Medications - Current Medications Current Medications: Generic Name Dose Route Start Last Admin Trade Name Freq PRN Reason Stop Dose Admin Albuterol/Ipratropium 1 ampul 02/24/19 20:00 04/28/19 13:47 Duoneb *Not For Prn Use* IH 1 ampul TIDRT SANCHEZ Administration Lipase/Protease/Amylase 1 each 04/10/19 15:16 Pancrejewel Barrientos 10,500 Unit FEEDTUBE PRN PRN For Clogged Feeding Tube Epoetin Solitario 20,000 unit 03/24/19 11:17 04/27/19 12:56 Procrit IV 20,000 unit UMA PRN Administration hemodialysis Famotidine 20 mg 02/23/19 10:00 04/28/19 11:59 Pepcid PO 20 mg DAILY SANCHEZ Administration Insulin Human Regular 0 units 02/26/19 12:00 04/28/19 12:00 Humulin R SUB-Q 1 units Q6HR SANCHEZ Administration Protocol Metoprolol Tartrate 2.5 mg 02/28/19 12:06 03/15/19 05:15 Lopressor IV 2.5 mg Q4HR PRN Administration Tachycardia Risperidone 1 mg 02/25/19 13:00 04/28/19 12:00 Risperdal PO 1 mg DAILY SANCHEZ Administration Sertraline HCl 100 mg 02/25/19 13:00 04/28/19 11:59 Zoloft PO 100 mg DAILY SANCHEZ Administration Simple Syrup 15 ml 04/10/19 15:16 Simple Syrup FEEDTUBE PRN PRN Hypoglycemia Simple Syrup 30 ml 04/10/19 15:16 Simple Syrup FEEDTUBE PRN PRN Hypoglycemia Sodium Bicarbonate 325 mg 04/10/19 15:16 Sodium Bicarbonate FEEDTUBE PRN PRN For Clogged Feeding Tube Sodium Hypochlorite 1 applic 04/01/19 13:00 04/28/19 11:11 Dakin's Half Strength TP Not Given BID SANCHEZ Nutrition/Malnutrition Assess - Dietary Evaluation Nutrition/Malnutrition Findings: Nutrition Notes Start: 02/22/19 12:51 Freq: Status: Active Protocol: Document 04/24/19 11:11 PS (Rec: 04/24/19 12:23 PS [id number]) Co-Sign 04/24/19 11:11 LP Nutrition Notes Initial or Follow up Reassessment Current Diagnosis Diabetes,Hypertension Other Pertinent Diagnosis Sacral PU, ESRD on HD (T/Thurs /Sat), Schizophrenia,Blind in L eye,S/P trach Current Diet Nepro at 50 ml/hr w/Abhilash BID Labs/Tests POC Glu 141 Pertinent Medications Reviewed Height 5 ft 10 in Weight 65.7 kg [place] Body Weight (kg) 75.45 BMI 20.7 Weight change and time frame wt. change noted. Subjective/Other Information Observed Nepro infusing at 50 ml/hr. RN had Abhilash and was going to give it to him BID. Percent of energy/protein needs met: 100%/100% Burn Absent Trauma Absent Minimum of two criteria No #2 Nutrition Diagnosis Increased nutrient needs ( specify in comment below) Diagnosis Progress(for reassessment Continues documentation) #1 Nutrition Diagnosis Inadequate oral intake Diagnosis Progress(for reassessment Continues documentation) Is patient on ventilator? No Is Patient Ambulatory and/or Out of Bed No REE-([place]-confined to bed) 1749.252 Kcal/Kg value to use for calculation 35 Approximate Energy Requirements Using 2300 kcal/Kg Calculation Used for Recommendations Kcal/kg Additional Notes Protein Needs: 79 - 98 g (1.2- 1.5 g/kg) Fluid Needs: 1-1.5 L/day Nutrition Intervention Change Diet Order: Continue TF Nutrition Support: Nepro with Carbsteady 1.8 at 50 ml/hr Flush 200 ml q4hr Kcal 2,160 Protein (gm) 97 Fluid (mL) 872 Add Supplement/Snack (indicate name/kcal Abhilash BID /protein ) Provides kCal: 190 Provides Protein (gm) 5 Goal #1 TF tolerance Goal #2 Continue to meet at least 75% of calorie and protein needs via TF Anticipated Discharge Needs: TF Follow-Up By: 05/01/19 Additional Comments Follow for TF/ONS tolerance
[2019-04-29] MEDS: INSULIN REGULAR, HUMAN 100 UNITS/1 ML SUB-Q SCH ×4 (00:31→17:06)
[2019-04-29] MEDS: SODIUM HYPOCHLORITE, DAKIN'S 1/2 STRENGTH (0.25%) 473 ML TOPICAL SOLN TP SCH ×2 (03:00→14:44)
[2019-04-29] MEDS: IPRATROPIUM/ALBUTEROL SULFATE 3 ML AMPUL.NEB IH SCH ×4 (08:28→19:05)
--- NOTE | 2019-04-29 10:28 | Progress Note ---
Assessment and Plan Assessment: * End stage renal disease (outpatient TTS schedule) * Acute hypoxic respiratory failure on mechanical ventilation * Atrial fibrillation * History of CVA * Anemia secondary to ESRD * Secondary hyperparathyroidism Plan * Continue HD MWF schedule for now while inpatient * UF as tolerated; reviewed pulmonary notes and CXR * AVG in use. A * Empiric abx per ID/primary team * Nutrition per primary team * Dose medications for renal function * Epogen TID Overall prognosis remains poor; will continue to follow for ESRD needs while inpatient. Subjective Date of service: 04/29/19 Principal diagnosis: Respiratory failure, acute on chronic systolic HF, ESRD Interval history: no acute events Objective - Exam Narrative Exam: General appearance: chronically ill, intubated, frail EENT: normocephalic Neck: ETT in place Respiratory: coarse mechanical breath sounds bilaterally Cardiology: regular, S1S2, no edema Gastrointestinal: PEG and colostomy noted Integumentary: warm and dry Psychiatric: unable to assess - Vital Signs Vital signs: Vital Signs - 12hr 04/28/19 04/29/19 04/29/19 23:40 00:45 00:46 Temperature 98.3 F Pulse Rate 110 H 115 H Pulse Rate [ Anterior Bilateral Throughout] Pulse Rate [ Posterior Bilateral Throughout] Respiratory 18 20 Rate Respiratory Rate [Anterior Bilateral Throughout] Respiratory Rate [Posterior Bilateral Throughout] Blood Pressure 192/99 132/65 Blood Pressure 130/66 [Right] O2 Sat by Pulse 94 100 Oximetry O2 Sat by Pulse Oximetry [ Assessment] 04/29/19 04/29/19 04/29/19 00:50 03:44 04:23 Temperature 97.8 F Pulse Rate 115 H 120 H Pulse Rate [ Anterior Bilateral Throughout] Pulse Rate [ Posterior Bilateral Throughout] Respiratory 18 18 Rate Respiratory Rate [Anterior Bilateral Throughout] Respiratory Rate [Posterior Bilateral Throughout] Blood Pressure 130/64 Blood Pressure 132/65 [Right] O2 Sat by Pulse 99 97 100 Oximetry O2 Sat by Pulse Oximetry [ Assessment] 04/29/19 04/29/19 04/29/19 08:00 08:11 08:46 Temperature 97.7 F Pulse Rate 64 Pulse Rate [ 101 H Anterior Bilateral Throughout] Pulse Rate [ 100 H Posterior Bilateral Throughout] Respiratory 18 22 Rate Respiratory 16 Rate [Anterior Bilateral Throughout] Respiratory 16 Rate [Posterior Bilateral Throughout] Blood Pressure 108/53 Blood Pressure [Right] O2 Sat by Pulse 84 100 Oximetry O2 Sat by Pulse 100 Oximetry [ Assessment] 04/29/19 10:00 Temperature Pulse Rate 100 H Pulse Rate [ Anterior Bilateral Throughout] Pulse Rate [ Posterior Bilateral Throughout] Respiratory Rate Respiratory Rate [Anterior Bilateral Throughout] Respiratory Rate [Posterior Bilateral Throughout] Blood Pressure Blood Pressure [Right] O2 Sat by Pulse Oximetry O2 Sat by Pulse Oximetry [ Assessment] - Lab 04/26/19 10:12 04/26/19 10:12 Most recent lab results ABG pH 7.424 pH Units (7.350-7.450) 03/19/19 04:23 ABG pCO2 48.0 mm Hg 03/19/19 04:23 ABG pO2 78.3 mm Hg (80.0-90.0) L 03/19/19 04:23 ABG HCO3 30.7 mmol/L (20.0-26.0) H 03/19/19 04:23 ABG O2 Saturation 97.0 % (95.0-99.0) 03/19/19 04:23 Calcium 10.0 mg/dL (8.4-10.2) 04/26/19 10:12 Phosphorus 4.30 mg/dL (2.5-4.5) D 03/31/19 10:26 Magnesium 2.70 mg/dL (1.7-2.3) H 03/30/19 10:13 Medications & Allergies - Medications Allergies/Adverse Reactions: Allergies haloperidol [From Haldol] Adverse Reaction (Verified 03/13/18 12:10) Unknown haloperidol lactate [From Haldol] Adverse Reaction (Verified 03/13/18 12:10) Unknown Home Medications: Home Medications Medication Instructions Recorded Confirmed Last Taken Type risperiDONE [RisperDAL] 1 mg PO QAM 03/13/18 02/21/19 Unknown History Sertraline [Zoloft] 100 mg PO QDAY 08/26/18 02/21/19 Unknown History Polyethylene Glycol 3350 [Miralax 17 gm PO QDAY #30 packet 11/05/18 02/21/19 Unknown Rx 3350] Aspirin EC [Halfprin EC] 81 mg PO DAILY #30 11/19/18 02/21/19 Unknown Rx Docusate Sodium [Colace CAP] 100 mg PO BID #60 11/19/18 02/21/19 Unknown Rx Folic Acid [Folvite] 1 mg PO DAILY #30 tab 11/19/18 02/21/19 Unknown Rx Famotidine [Pepcid] 20 mg PO DAILY tablet 12/08/18 02/21/19 Unknown Rx Gabapentin [Neurontin] 100 mg PO QHS capsule 12/08/18 02/21/19 Unknown Rx Metoprolol [Lopressor TAB] 50 mg PO BID 30 Days tablet 12/08/18 02/21/19 Unknown Rx Sevelamer Carbonate [Renvela] 800 mg PO TIDWM tablet 12/08/18 02/21/19 Unknown Rx hydrALAZINE [Apresoline TAB] 100 mg PO Q8HR #120 tablet 12/08/18 02/21/19 Unknown Rx Acetaminophen [Acetaminophen TAB] 650 mg PO Q12H PRN 12/15/18 02/21/19 Unknown History Glucagon,Human Recombinant 1 mg IJ Q15MIN PRN 12/15/18 02/21/19 Unknown History [Glucagon Emergency Kit] Insulin Aspart [NovoLOG 100 See Protocol SQ QWEEK 12/15/18 02/21/19 Unknown History UNITS/ML VIAL] Active Medications: Generic Name Dose Route Start Last Admin Trade Name Freq PRN Reason Stop Dose Admin Albuterol/Ipratropium 1 ampul 02/24/19 20:00 04/29/19 08:28 Duoneb *Not For Prn Use* IH 1 ampul TIDRT SANCHEZ Administration Lipase/Protease/Amylase 1 each 04/10/19 15:16 Pancreaze 10,500 Unit FEEDTUBE PRN PRN For Clogged Feeding Tube Epoetin Solitario 20,000 unit 03/24/19 11:17 04/27/19 12:56 Procrit IV 20,000 unit UMA PRN Administration hemodialysis Famotidine 20 mg 02/23/19 10:00 04/28/19 11:59 Pepcid PO 20 mg DAILY SANCHEZ Administration Insulin Human Regular 0 units 02/26/19 12:00 04/29/19 06:04 Humulin R SUB-Q 1 units Q6HR SANCHEZ Administration Protocol Metoprolol Tartrate 2.5 mg 02/28/19 12:06 03/15/19 05:15 Lopressor IV 2.5 mg Q4HR PRN Administration Tachycardia Risperidone 1 mg 02/25/19 13:00 04/28/19 12:00 Risperdal PO 1 mg DAILY SANCHEZ Administration Sertraline HCl 100 mg 02/25/19 13:00 04/28/19 11:59 Zoloft PO 100 mg DAILY SANCHEZ Administration Simple Syrup 15 ml 04/10/19 15:16 Simple Syrup FEEDTUBE PRN PRN Hypoglycemia Simple Syrup 30 ml 04/10/19 15:16 Simple Syrup FEEDTUBE PRN PRN Hypoglycemia Sodium Bicarbonate 325 mg 04/10/19 15:16 Sodium Bicarbonate FEEDTUBE PRN PRN For Clogged Feeding Tube Sodium Hypochlorite 1 applic 04/01/19 13:00 04/29/19 03:00 Dakin's Half Strength TP 1 applicatio BID SANCHEZ Administration
--- NOTE | 2019-04-29 10:51 | Progress Note ---
Assessment and Plan Assessment and plan: Patient is 63-year-old -[place] male patient from [facility] with multiple co-morbidities including blindness, CVA, CHF, PPM/ICD, loop recorder since 2012 that is MRI compatible, IDDM type 2, sepsis left foot ulcer, afib, ESRD with complications on HD TTS, hypertension, AOCD and GERD who presented to the ED with hypotensive after intubation in the emergency room. diagnosed with fluid overload, pleural effusion. Patient has had recurrent admission in the hospital for similar reason and was recently discharged from the hospital following treatment of Severe Sepsis due to Necrotizing Unstagable sacral decubitus ulcer with ostemomylitis, has received multiple courses of broad spectrum abx. Acute hypoxic respiratory failure, status post intubation and ventilatory support, now off vent, on T-piece Acute respiratory failure on mechanical ventilator >96 hrs Extubated ; history of tracheostomy on T piece Current management , nebulizers, Currently on trach/peg placed on 03/03. Now off vent, cont oxygen supplement, improving, on t piece, nebulizers, pulmonary critical following acute on chronic systolic CHF/ Acute pulmonary edema, HD per schedule Dilated CMP, EF 35-40% Continue diuresis, supportive care Acute metabolic encephalopathy, resolved, has baseline Dementia. --ESRD on hemodialysis per schedule nephrology following --Bilateral pleural effusions improved with HD --Permanent atrial fibrillation and flutter and hypercoaguable state Not on anticoagulation because of anemia thrombocytopenia rate control meds optimized --Diabetes mellitus type 2 Accu-Chek sliding scale coverage Insulin as needed --NSTEMI type 2 , Cardiology following --Schizophrenia:stable --Legally blind, supportive care --hypertension, Monitor BP,'s adjust medications as needed --Hypokalemia; corrected --Pulmonary hypertension; continue current management --Dysphagia s/p PEG tube; PEG tubes per protocol --Sacral decub ulcer; Wound care --Severe malnutrition /hypoalbuminemia with FTT: 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, 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 History Interval history: Patient was seen and evaluated this morning, Patient is on PEG and trach. Had low grade temp this morning. Hospitalist Physical - Physical exam Narrative exam: Patient is on trach and PEG, ON 5L The patient appeared well nourished and normally developed. Vital signs as documented. Head exam is unremarkable. No scleral icterus . Neck is without jugular venous distension, thyromegaly, or carotid bruits. Lungs are clear to auscultation. Cardiac exam reveals regular rate and Rhythm. First and second heart sounds normal. No murmurs, rubs or gallops. Abdominal exam reveals PEG tube in place, colostomy bag in place. Extremities are nonedematous and both femoral and pedal pulses are normal. 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 - Constitutional Vitals: Temp Pulse Resp BP Pulse Ox 100.1 F H 98 H 15 103/63 100 04/29/19 09:48 04/29/19 10:45 04/29/19 09:48 04/29/19 10:45 04/29/19 10:27 General appearance: Present: no acute distress, well-nourished, other (T peace) Results - Labs CBC & Chem 7: 04/26/19 10:12 04/26/19 10:12 Labs: Laboratory Last Values WBC 11.5 K/mm3 (4.5-11.0) H 04/26/19 10:12 RBC 2.84 M/mm3 (3.65-5.03) L 04/26/19 10:12 Hgb 7.4 gm/dl (11.8-15.2) L 04/26/19 10:12 Hct 23.3 % (35.5-45.6) L 04/26/19 10:12 MCV 82 fl (84-94) L 04/26/19 10:12 MCH 26 pg (28-32) L 04/26/19 10:12 MCHC 32 % (32-34) 04/26/19 10:12 RDW 20.3 % (13.2-15.2) H 04/26/19 10:12 Plt Count 350 K/mm3 (140-440) 04/26/19 10:12 Lymph % (Auto) 7.5 % (13.4-35.0) L 04/26/19 10:12 Mathews % (Auto) 7.5 % (0.0-7.3) H 04/26/19 10:12 Eos % (Auto) 5.3 % (0.0-4.3) H 04/26/19 10:12 Baso % (Auto) 0.5 % (0.0-1.8) 04/26/19 10:12 Lymph # 0.9 K/mm3 (1.2-5.4) L 04/26/19 10:12 Mathews # 0.9 K/mm3 (0.0-0.8) H 04/26/19 10:12 Eos # 0.6 K/mm3 (0.0-0.4) H 04/26/19 10:12 Baso # 0.1 K/mm3 (0.0-0.1) 04/26/19 10:12 Add Manual Diff Complete 03/21/19 06:30 Total Counted 100 03/21/19 06:30 Seg Neutrophils % 79.2 % (40.0-70.0) H 04/26/19 10:12 Seg Neuts % (Manual) 81.0 % (40.0-70.0) H 03/21/19 06:30 Band Neutrophils % 0 % 03/21/19 06:30 Lymphocytes % (Manual) 8.0 % (13.4-35.0) L 03/21/19 06:30 Reactive Lymphs % (Man) 0 % 03/21/19 06:30 Monocytes % (Manual) 1.0 % (0.0-7.3) 03/21/19 06:30 Eosinophils % (Manual) 8.0 % (0.0-4.3) H 03/21/19 06:30 Basophils % (Manual) 1.0 % (0.0-1.8) 03/21/19 06:30 Metamyelocytes % 1.0 % 03/21/19 06:30 Myelocytes % 0 % 03/21/19 06:30 Promyelocytes % 0 % 03/21/19 06:30 Blast Cells % 0 % 03/21/19 06:30 Nucleated RBC % Not Reportable 03/21/19 06:30 Seg Neutrophils # 9.1 K/mm3 (1.8-7.7) H 04/26/19 10:12 Seg Neutrophils # Man 6.7 K/mm3 (1.8-7.7) 03/21/19 06:30 Band Neutrophils # 0.0 K/mm3 03/21/19 06:30 Lymphocytes # (Manual) 0.7 K/mm3 (1.2-5.4) L 03/21/19 06:30 Abs React Lymphs (Man) 0.0 K/mm3 03/21/19 06:30 Monocytes # (Manual) 0.1 K/mm3 (0.0-0.8) 03/21/19 06:30 Eosinophils # (Manual) 0.7 K/mm3 (0.0-0.4) H 03/21/19 06:30 Basophils # (Manual) 0.1 K/mm3 (0.0-0.1) 03/21/19 06:30 Metamyelocytes # 0.1 K/mm3 03/21/19 06:30 Myelocytes # 0.0 K/mm3 03/21/19 06:30 Promyelocytes # 0.0 K/mm3 03/21/19 06:30 Blast Cells # 0.0 K/mm3 03/21/19 06:30 WBC Morphology Not Reportable 03/21/19 06:30 Hypersegmented Neuts Not Reportable 03/21/19 06:30 Hyposegmented Neuts Not Reportable 03/21/19 06:30 Hypogranular Neuts Not Reportable 03/21/19 06:30 Smudge Cells Not Reportable 03/21/19 06:30 Toxic Granulation Not Reportable 03/21/19 06:30 Toxic Vacuolation Not Reportable 03/21/19 06:30 Dohle Bodies Not Reportable 03/21/19 06:30 Pelger-Huet Anomaly Not Reportable 03/21/19 06:30 Tramaine Rods Not Reportable 03/21/19 06:30 Platelet Estimate Consistent w auto 03/21/19 06:30 Clumped Platelets Not Reportable 03/21/19 06:30 Plt Clumps, EDTA Not Reportable 03/21/19 06:30 Large Platelets Not Reportable 03/21/19 06:30 Giant Platelets Not Reportable 03/21/19 06:30 Platelet Satelliting Not Reportable 03/21/19 06:30 Plt Morphology Comment Not Reportable 03/21/19 06:30 RBC Morphology Not Reportable 03/21/19 06:30 Dimorphic RBCs Not Reportable 03/21/19 06:30 Polychromasia Not Reportable 03/21/19 06:30 Hypochromasia Few 03/21/19 06:30 Poikilocytosis Few 03/21/19 06:30 Anisocytosis Few 03/21/19 06:30 Microcytosis Not Reportable 03/21/19 06:30 Macrocytosis Not Reportable 03/21/19 06:30 Spherocytes Not Reportable 03/21/19 06:30 Pappenheimer Bodies Not Reportable 03/21/19 06:30 Sickle Cells Not Reportable 03/21/19 06:30 Target Cells 1+ 03/21/19 06:30 Tear Drop Cells Not Reportable 03/21/19 06:30 Ovalocytes Few 03/21/19 06:30 Helmet Cells Not Reportable 03/21/19 06:30 [place] Bodies Not Reportable 03/21/19 06:30 [place] Rings Not Reportable 03/21/19 06:30 [place] Cells Not Reportable 03/21/19 06:30 Bite Cells Not Reportable 03/21/19 06:30 Crenated Cell Not Reportable 03/21/19 06:30 Elliptocytes Not Reportable 03/21/19 06:30 Acanthocytes (Spur) Not Reportable 03/21/19 06:30 Rouleaux Not Reportable 03/21/19 06:30 Hemoglobin C Crystals Not Reportable 03/21/19 06:30 Schistocytes Not Reportable 03/21/19 06:30 Malaria parasites Not Reportable 03/21/19 06:30 Jose Juan Bodies Not Reportable 03/21/19 06:30 Hem Pathologist Commnt No 03/21/19 06:30 PT 16.3 Sec. (12.2-14.9) H 03/01/19 09:39 INR 1.35 (0.87-1.13) H 03/01/19 09:39 APTT 33.7 Sec. (24.2-36.6) 02/21/19 18:30 D-Dimer 2987.82 ng/mlDDU (0-234) H 02/22/19 05:54 POC ABG pH 7.510 (7.35-7.45) H 03/18/19 06:38 ABG pH 7.424 pH Units (7.350-7.450) 03/19/19 04:23 POC ABG pCO2 38.9 (35-45) 03/18/19 06:38 ABG pCO2 48.0 mm Hg 03/19/19 04:23 POC ABG pO2 164 (80-105) H 03/18/19 06:38 ABG pO2 78.3 mm Hg (80.0-90.0) L 03/19/19 04:23 POC ABG HCO3 31.0 (22-26 mml/L) 03/18/19 06:38 ABG HCO3 30.7 mmol/L (20.0-26.0) H 03/19/19 04:23 POC ABG Total CO2 32 (23-27mmol/L) 03/18/19 06:38 POC ABG O2 Sat 100 03/18/19 06:38 ABG O2 Saturation 97.0 % (95.0-99.0) 03/19/19 04:23 ABG O2 Content 7.9 (0.0-44) 03/19/19 04:23 POC ABG Base Excess 8 ((-2) - (+3)mmol/L) 03/18/19 06:38 ABG Base Excess 5.8 mmol/L (-2.0-3.0) H 03/19/19 04:23 ABG Hemoglobin 5.8 gm/dl (14.0-18.0) L 03/19/19 04:23 ABG Carboxyhemoglobin 2.0 % (0.0-5.0) 03/19/19 04:23 ABG Methemoglobin 0.4 % (0.0-1.5) 03/19/19 04:23 Oxyhemoglobin 94.6 % (95.0-99.0) L 03/19/19 04:23 FiO2 35 % 03/19/19 04:23 Sodium 130 mmol/L (137-145) L 04/26/19 10:12 Potassium 4.2 mmol/L (3.6-5.0) 04/26/19 10:12 Chloride 87.4 mmol/L (98-107) L 04/26/19 10:12 Carbon Dioxide 28 mmol/L (22-30) 04/26/19 10:12 Anion Gap 19 mmol/L 04/26/19 10:12 BUN 93 mg/dL (9-20) H 04/26/19 10:12 Creatinine 4.2 mg/dL (0.8-1.5) H 04/26/19 10:12 Estimated GFR 17 ml/min 04/26/19 10:12 BUN/Creatinine Ratio 22 % 04/26/19 10:12 Glucose 140 mg/dL (75-100) H 04/26/19 10:12 POC Glucose 177 (70-105) H 04/29/19 05:50 Lactic Acid 1.00 mmol/L (0.7-2.0) 02/21/19 20:58 Calcium 10.0 mg/dL (8.4-10.2) 04/26/19 10:12 Phosphorus 4.30 mg/dL (2.5-4.5) D 03/31/19 10:26 Magnesium 2.70 mg/dL (1.7-2.3) H 03/30/19 10:13 Total Bilirubin 0.20 mg/dL (0.1-1.2) 03/30/19 10:13 AST 16 units/L (5-40) 03/30/19 10:13 ALT 11 units/L (7-56) 03/30/19 10:13 Alkaline Phosphatase 185 units/L (35-129) H 03/30/19 10:13 Ammonia 28.0 umol/L (25-60) 02/21/19 20:04 Total Creatine Kinase 64 units/L (55-170) 02/22/19 03:42 CK-MB (CK-2) 3.7 ng/mL (0.0-4.0) 02/22/19 03:42 CK-MB (CK-2) Rel Index 5.7 (0-4) H 02/22/19 03:42 Troponin T 0.193 ng/mL (0.00-0.029) H* 02/22/19 03:42 Total Protein 6.9 g/dL (6.3-8.2) 03/30/19 10:13 Albumin 2.6 g/dL (3.9-5) L 03/30/19 10:13 Albumin/Globulin Ratio 0.6 % 03/30/19 10:13 Triglycerides 51 mg/dL (2-149) 02/21/19 18:30 Cholesterol 82 mg/dL (50-199) 02/21/19 18:30 LDL Cholesterol Direct 36 mg/dL (50-130) L 02/21/19 18:30 HDL Cholesterol 40 mg/dL (40-59) 02/21/19 18:30 Cholesterol/HDL Ratio 2.05 % 02/21/19 18:30 TSH 2.760 mlU/mL (0.270-4.200) 02/21/19 20:04 PTH Intact 267.6 pg/mL (15-65) H 03/02/19 05:15 Salicylates < 0.3 mg/dL (2.8-20.0) L 02/21/19 20:04 Acetaminophen < 5.0 ug/mL (10.0-30.0) L 02/21/19 20:04 Hepatitis A IgM Ab Non-reactive (NonReactive) 03/31/19 22:56 Hep Bs Antigen Non-reactive (Negative) 03/31/19 22:56 Hep B Core IgM Ab Non-reactive (NonReactive) 03/31/19 22:56 Hepatitis C Antibody Non-reactive (NonReactive) 03/31/19 22:56 Blood Type O POSITIVE 03/22/19 08:48 Antibody Screen Negative 03/22/19 08:48 Crossmatch See Detail 03/22/19 08:48 Active Medications - Current Medications Current Medications: Generic Name Dose Route Start Last Admin Trade Name Freq PRN Reason Stop Dose Admin Albuterol/Ipratropium 1 ampul 02/24/19 20:00 04/29/19 08:28 Duoneb *Not For Prn Use* IH 1 ampul TIDRT SANCHEZ Administration Lipase/Protease/Amylase 1 each 04/10/19 15:16 Pancreaze 10,500 Unit FEEDTUBE PRN PRN For Clogged Feeding Tube Epoetin Solitario 20,000 unit 03/24/19 11:17 04/27/19 12:56 Procrit IV 20,000 unit UMA PRN Administration hemodialysis Famotidine 20 mg 02/23/19 10:00 04/28/19 11:59 Pepcid PO 20 mg DAILY SANCHEZ Administration Insulin Human Regular 0 units 02/26/19 12:00 04/29/19 06:04 Humulin R SUB-Q 1 units Q6HR SANCHEZ Administration Protocol Metoprolol Tartrate 2.5 mg 02/28/19 12:06 03/15/19 05:15 Lopressor IV 2.5 mg Q4HR PRN Administration Tachycardia Risperidone 1 mg 02/25/19 13:00 04/28/19 12:00 Risperdal PO 1 mg DAILY SANCHEZ Administration Sertraline HCl 100 mg 02/25/19 13:00 04/28/19 11:59 Zoloft PO 100 mg DAILY SANCHEZ Administration Simple Syrup 15 ml 04/10/19 15:16 Simple Syrup FEEDTUBE PRN PRN Hypoglycemia Simple Syrup 30 ml 04/10/19 15:16 Simple Syrup FEEDTUBE PRN PRN Hypoglycemia Sodium Bicarbonate 325 mg 04/10/19 15:16 Sodium Bicarbonate FEEDTUBE PRN PRN For Clogged Feeding Tube Sodium Hypochlorite 1 applic 04/01/19 13:00 04/29/19 03:00 Dakin's Half Strength TP 1 applicatio BID SANCHEZ Administration Nutrition/Malnutrition Assess - Dietary Evaluation Nutrition/Malnutrition Findings: Nutrition Notes Start: 02/22/19 12:51 Freq: Status: Active Protocol: Document 04/24/19 11:11 PS (Rec: 04/24/19 12:23 PS [id number]) Co-Sign 04/24/19 11:11 LP Nutrition Notes Initial or Follow up Reassessment Current Diagnosis Diabetes,Hypertension Other Pertinent Diagnosis Sacral PU, ESRD on HD (T/Thurs /Sat), Schizophrenia,Blind in L eye,S/P trach Current Diet Nepro at 50 ml/hr w/Abhilash BID Labs/Tests POC Glu 141 Pertinent Medications Reviewed Height 5 ft 10 in Weight 65.7 kg [place] Body Weight (kg) 75.45 BMI 20.7 Weight change and time frame wt. change noted. Subjective/Other Information Observed Nepro infusing at 50 ml/hr. RN had Abhilash and was going to give it to him BID. Percent of energy/protein needs met: 100%/100% Burn Absent Trauma Absent Minimum of two criteria No #2 Nutrition Diagnosis Increased nutrient needs ( specify in comment below) Diagnosis Progress(for reassessment Continues documentation) #1 Nutrition Diagnosis Inadequate oral intake Diagnosis Progress(for reassessment Continues documentation) Is patient on ventilator? No Is Patient Ambulatory and/or Out of Bed No REE-(Gila-St. Jeor-confined to bed) 1749.252 Kcal/Kg value to use for calculation 35 Approximate Energy Requirements Using 2300 kcal/Kg Calculation Used for Recommendations Kcal/kg Additional Notes Protein Needs: 79 - 98 g (1.2- 1.5 g/kg) Fluid Needs: 1-1.5 L/day Nutrition Intervention Change Diet Order: Continue TF Nutrition Support: Nepro with Carbsteady 1.8 at 50 ml/hr Flush 200 ml q4hr Kcal 2,160 Protein (gm) 97 Fluid (mL) 872 Add Supplement/Snack (indicate name/kcal Abhilash BID /protein ) Provides kCal: 190 Provides Protein (gm) 5 Goal #1 TF tolerance Goal #2 Continue to meet at least 75% of calorie and protein needs via TF Anticipated Discharge Needs: TF Follow-Up By: 05/01/19 Additional Comments Follow for TF/ONS tolerance
[2019-04-29] MEDS ORDERED: SODIUM CHLORIDE*PRIMING MACHINE ONLY FOR DIALYSIS MC ONE (11:23)
--- NOTE | 2019-04-29 12:35 | Progress Note ---
Assessment and Plan 63 y/o male with multiple medical issues admitted with altered mental status, acute respiratory failure requiring mechanical ventilation 1. Daily PMV trials. Hopefully will lead to capping and nasal cannula at some point. then could consider decannulation. 2. HD per renal 3. PT/OT if possible 4. CM working on placement Subjective Date of service: 04/29/19 Principal diagnosis: Respiratory failure, acute on chronic systolic HF, ESRD Interval history: No acute events. stable pulm status Objective Vital Signs - 12hr 04/29/19 04/29/19 04/29/19 00:45 00:46 00:50 Temperature Pulse Rate 115 H 115 H Pulse Rate [ Anterior Bilateral Throughout] Pulse Rate [ Posterior Bilateral Throughout] Respiratory 20 18 Rate Respiratory Rate [Anterior Bilateral Throughout] Respiratory Rate [Posterior Bilateral Throughout] Blood Pressure 132/65 Blood Pressure 130/66 132/65 [Right] O2 Sat by Pulse 100 99 Oximetry O2 Sat by Pulse Oximetry [ Anterior Bilateral Throughout] O2 Sat by Pulse Oximetry [ Assessment] 04/29/19 04/29/19 04/29/19 03:44 04:23 08:00 Temperature 97.8 F 97.7 F Pulse Rate 120 H 64 Pulse Rate [ 101 H Anterior Bilateral Throughout] Pulse Rate [ 100 H Posterior Bilateral Throughout] Respiratory 18 18 Rate Respiratory 16 Rate [Anterior Bilateral Throughout] Respiratory 16 Rate [Posterior Bilateral Throughout] Blood Pressure 130/64 108/53 Blood Pressure [Right] O2 Sat by Pulse 97 100 84 Oximetry O2 Sat by Pulse Oximetry [ Anterior Bilateral Throughout] O2 Sat by Pulse 100 Oximetry [ Assessment] 04/29/19 04/29/19 04/29/19 08:11 08:46 09:48 Temperature 100.1 F H Pulse Rate 93 H Pulse Rate [ Anterior Bilateral Throughout] Pulse Rate [ Posterior Bilateral Throughout] Respiratory 22 15 Rate Respiratory Rate [Anterior Bilateral Throughout] Respiratory Rate [Posterior Bilateral Throughout] Blood Pressure 115/62 Blood Pressure [Right] O2 Sat by Pulse 100 Oximetry O2 Sat by Pulse 100 Oximetry [ Anterior Bilateral Throughout] O2 Sat by Pulse Oximetry [ Assessment] 04/29/19 04/29/19 04/29/19 10:00 10:15 10:27 Temperature Pulse Rate 94 H 91 H Pulse Rate [ Anterior Bilateral Throughout] Pulse Rate [ Posterior Bilateral Throughout] Respiratory Rate Respiratory Rate [Anterior Bilateral Throughout] Respiratory Rate [Posterior Bilateral Throughout] Blood Pressure 108/62 104/59 Blood Pressure [Right] O2 Sat by Pulse 100 Oximetry O2 Sat by Pulse Oximetry [ Anterior Bilateral Throughout] O2 Sat by Pulse Oximetry [ Assessment] 04/29/19 04/29/19 04/29/19 10:30 10:45 11:00 Temperature Pulse Rate 94 H 98 H 104 H Pulse Rate [ Anterior Bilateral Throughout] Pulse Rate [ Posterior Bilateral Throughout] Respiratory Rate Respiratory Rate [Anterior Bilateral Throughout] Respiratory Rate [Posterior Bilateral Throughout] Blood Pressure 109/63 103/63 102/64 Blood Pressure [Right] O2 Sat by Pulse Oximetry O2 Sat by Pulse Oximetry [ Anterior Bilateral Throughout] O2 Sat by Pulse Oximetry [ Assessment] 04/29/19 04/29/19 04/29/19 11:15 11:30 11:45 Temperature Pulse Rate 100 H 102 H 99 H Pulse Rate [ Anterior Bilateral Throughout] Pulse Rate [ Posterior Bilateral Throughout] Respiratory Rate Respiratory Rate [Anterior Bilateral Throughout] Respiratory Rate [Posterior Bilateral Throughout] Blood Pressure 105/58 101/58 104/59 Blood Pressure [Right] O2 Sat by Pulse Oximetry O2 Sat by Pulse Oximetry [ Anterior Bilateral Throughout] O2 Sat by Pulse Oximetry [ Assessment] 04/29/19 04/29/19 04/29/19 12:00 12:15 12:30 Temperature Pulse Rate 96 H 93 H 95 H Pulse Rate [ Anterior Bilateral Throughout] Pulse Rate [ Posterior Bilateral Throughout] Respiratory Rate Respiratory Rate [Anterior Bilateral Throughout] Respiratory Rate [Posterior Bilateral Throughout] Blood Pressure 95/66 100/57 96/57 Blood Pressure [Right] O2 Sat by Pulse Oximetry O2 Sat by Pulse Oximetry [ Anterior Bilateral Throughout] O2 Sat by Pulse Oximetry [ Assessment] Constitutional: no acute distress, alert Eyes: non-icteric ENT: oropharynx moist Neck: supple Effort: normal Ascultation: Bilateral: diminished breath sounds, other (coarse BS bilaterally) Percussion: Bilateral: not dull Cardiovascular: regular rate and rhythm (no mrg) Gastrointestinal: normoactive bowel sounds, soft, non-tender, non-distended, other (ostomy in place, brown stool) Extremities: no cyanosis, no edema, pink and warm Neurologic: other (mild weakness LUE, o/w nonfocal) Psychiatric: other (unable to assess) CBC and BMP: 04/26/19 10:12 04/26/19 10:12 ABG, PT/INR, D-dimer: ABG POC ABG pH 7.510 (7.35-7.45) H 03/18/19 06:38 ABG pH 7.424 pH Units (7.350-7.450) 03/19/19 04:23 POC ABG pCO2 38.9 (35-45) 03/18/19 06:38 ABG pCO2 48.0 mm Hg 03/19/19 04:23 POC ABG pO2 164 (80-105) H 03/18/19 06:38 ABG pO2 78.3 mm Hg (80.0-90.0) L 03/19/19 04:23 POC ABG HCO3 31.0 (22-26 mml/L) 03/18/19 06:38 POC ABG Total CO2 32 (23-27mmol/L) 03/18/19 06:38 POC ABG O2 Sat 100 03/18/19 06:38 ABG O2 Saturation 97.0 % (95.0-99.0) 03/19/19 04:23 PT/INR, D-dimer PT 16.3 Sec. (12.2-14.9) H 03/01/19 09:39 INR 1.35 (0.87-1.13) H 03/01/19 09:39 D-Dimer 2987.82 ng/mlDDU (0-234) H 02/22/19 05:54 Abnormal lab findings: Abnormal Labs 02/21/19 02/21/19 02/21/19 18:30 18:30 18:30 WBC RBC 3.26 L Hgb 8.8 L Hct 29.0 L MCV MCH 27 L MCHC 30 L RDW 19.1 H Lymph % (Auto) 6.1 L [place] % (Auto) Eos % (Auto) Lymph # 0.4 L [place] # Eos # Seg Neutrophils % 86.2 H Seg Neuts % (Manual) Lymphocytes % (Manual) Eosinophils % (Manual) Seg Neutrophils # Lymphocytes # (Manual) Eosinophils # (Manual) PT INR D-Dimer POC ABG pH POC ABG pCO2 POC ABG pO2 ABG pO2 ABG HCO3 ABG Base Excess ABG Hemoglobin Oxyhemoglobin Sodium 133 L Potassium 3.3 L Chloride 93.1 L Carbon Dioxide 33 H BUN Creatinine Glucose 161 H POC Glucose Calcium Phosphorus Magnesium ALT Alkaline Phosphatase 136 H Total Creatine Kinase 37 L CK-MB (CK-2) Rel Index Troponin T 0.192 H* Albumin 2.4 L LDL Cholesterol Direct 36 L PTH Intact Salicylates Acetaminophen Crossmatch 02/21/19 02/21/19 02/21/19 18:42 20:04 20:04 WBC RBC Hgb Hct MCV MCH MCHC RDW Lymph % (Auto) [place] % (Auto) Eos % (Auto) Lymph # [place] # Eos # Seg Neutrophils % Seg Neuts % (Manual) Lymphocytes % (Manual) Eosinophils % (Manual) Seg Neutrophils # Lymphocytes # (Manual) Eosinophils # (Manual) PT INR D-Dimer POC ABG pH POC ABG pCO2 56.7 H POC ABG pO2 291 H ABG pO2 ABG HCO3 ABG Base Excess ABG Hemoglobin Oxyhemoglobin Sodium Potassium Chloride Carbon Dioxide BUN Creatinine Glucose POC Glucose Calcium Phosphorus Magnesium ALT Alkaline Phosphatase Total Creatine Kinase CK-MB (CK-2) Rel Index Troponin T Albumin LDL Cholesterol Direct PTH Intact Salicylates < 0.3 L Acetaminophen < 5.0 L Crossmatch 02/21/19 02/22/19 02/22/19 22:35 03:42 03:42 WBC RBC 3.20 L Hgb 8.8 L Hct 27.6 L MCV MCH MCHC RDW 18.9 H Lymph % (Auto) 7.4 L [place] % (Auto) Eos % (Auto) Lymph # 0.7 L [place] # Eos # Seg Neutrophils % 84.7 H Seg Neuts % (Manual) Lymphocytes % (Manual) Eosinophils % (Manual) Seg Neutrophils # Lymphocytes # (Manual) Eosinophils # (Manual) PT INR D-Dimer POC ABG pH POC ABG pCO2 POC ABG pO2 ABG pO2 ABG HCO3 ABG Base Excess ABG Hemoglobin Oxyhemoglobin Sodium 134 L Potassium 2.6 L* D Chloride Carbon Dioxide BUN Creatinine Glucose POC Glucose Calcium Phosphorus Magnesium ALT Alkaline Phosphatase Total Creatine Kinase CK-MB (CK-2) Rel Index 5.2 H Troponin T 0.202 H* Albumin LDL Cholesterol Direct PTH Intact Salicylates Acetaminophen Crossmatch 02/22/19 02/22/19 02/22/19 03:42 05:54 09:04 WBC RBC Hgb Hct MCV MCH MCHC RDW Lymph % (Auto) [place] % (Auto) Eos % (Auto) Lymph # [place] # Eos # Seg Neutrophils % Seg Neuts % (Manual) Lymphocytes % (Manual) Eosinophils % (Manual) Seg Neutrophils # Lymphocytes # (Manual) Eosinophils # (Manual) PT INR D-Dimer 2987.82 H POC ABG pH 7.451 H POC ABG pCO2 POC ABG pO2 ABG pO2 ABG HCO3 ABG Base Excess ABG Hemoglobin Oxyhemoglobin Sodium Potassium Chloride Carbon Dioxide BUN Creatinine Glucose POC Glucose Calcium Phosphorus Magnesium ALT Alkaline Phosphatase Total Creatine Kinase CK-MB (CK-2) Rel Index 5.7 H Troponin T 0.193 H* Albumin LDL Cholesterol Direct PTH Intact Salicylates Acetaminophen Crossmatch 02/22/19 02/22/19 02/23/19 10:36 23:56 00:52 WBC RBC Hgb Hct MCV MCH MCHC RDW Lymph % (Auto) [place] % (Auto) Eos % (Auto) Lymph # [place] # Eos # Seg Neutrophils % Seg Neuts % (Manual) Lymphocytes % (Manual) Eosinophils % (Manual) Seg Neutrophils # Lymphocytes # (Manual) Eosinophils # (Manual) PT INR D-Dimer POC ABG pH POC ABG pCO2 POC ABG pO2 ABG pO2 ABG HCO3 ABG Base Excess ABG Hemoglobin Oxyhemoglobin Sodium Potassium 3.1 L Chloride Carbon Dioxide BUN Creatinine Glucose POC Glucose 58 L 111 H Calcium Phosphorus Magnesium ALT Alkaline Phosphatase Total Creatine Kinase CK-MB (CK-2) Rel Index Troponin T Albumin LDL Cholesterol Direct PTH Intact Salicylates Acetaminophen Crossmatch 02/23/19 02/23/19 02/23/19 05:00 06:35 14:26 WBC RBC Hgb Hct MCV MCH MCHC RDW Lymph % (Auto) [place] % (Auto) Eos % (Auto) Lymph # [place] # Eos # Seg Neutrophils % Seg Neuts % (Manual) Lymphocytes % (Manual) Eosinophils % (Manual) Seg Neutrophils # Lymphocytes # (Manual) Eosinophils # (Manual) PT INR D-Dimer POC ABG pH POC ABG pCO2 POC ABG pO2 ABG pO2 ABG HCO3 ABG Base Excess ABG Hemoglobin Oxyhemoglobin Sodium 135 L Potassium 3.1 L Chloride Carbon Dioxide BUN 21 H Creatinine 2.0 H Glucose 57 L POC Glucose 64 L 62 L Calcium Phosphorus Magnesium ALT Alkaline Phosphatase Total Creatine Kinase CK-MB (CK-2) Rel Index Troponin T Albumin LDL Cholesterol Direct PTH Intact Salicylates Acetaminophen Crossmatch 02/24/19 02/24/19 02/24/19 02:11 04:12 04:55 WBC RBC 2.84 L Hgb 7.8 L Hct 24.5 L MCV MCH MCHC RDW 19.5 H Lymph % (Auto) [place] % (Auto) Eos % (Auto) Lymph # [place] # Eos # Seg Neutrophils % Seg Neuts % (Manual) Lymphocytes % (Manual) Eosinophils % (Manual) Seg Neutrophils # Lymphocytes # (Manual) Eosinophils # (Manual) PT INR D-Dimer POC ABG pH 7.511 H POC ABG pCO2 33.9 L POC ABG pO2 62 L ABG pO2 ABG HCO3 ABG Base Excess ABG Hemoglobin Oxyhemoglobin Sodium Potassium Chloride Carbon Dioxide BUN Creatinine Glucose POC Glucose 69 L Calcium Phosphorus Magnesium ALT Alkaline Phosphatase Total Creatine Kinase CK-MB (CK-2) Rel Index Troponin T Albumin LDL Cholesterol Direct PTH Intact Salicylates Acetaminophen Crossmatch 02/24/19 02/24/19 02/25/19 04:55 05:41 04:45 WBC RBC Hgb Hct MCV MCH MCHC RDW Lymph % (Auto) [place] % (Auto) Eos % (Auto) Lymph # [place] # Eos # Seg Neutrophils % Seg Neuts % (Manual) Lymphocytes % (Manual) Eosinophils % (Manual) Seg Neutrophils # Lymphocytes # (Manual) Eosinophils # (Manual) PT INR D-Dimer POC ABG pH 7.466 H POC ABG pCO2 POC ABG pO2 75 L ABG pO2 ABG HCO3 ABG Base Excess ABG Hemoglobin Oxyhemoglobin Sodium Potassium Chloride Carbon Dioxide BUN Creatinine 1.8 H Glucose 73 L POC Glucose 127 H Calcium Phosphorus Magnesium ALT Alkaline Phosphatase Total Creatine Kinase CK-MB (CK-2) Rel Index Troponin T Albumin LDL Cholesterol Direct PTH Intact Salicylates Acetaminophen Crossmatch 02/25/19 02/25/19 02/26/19 16:34 21:33 03:45 WBC RBC 2.96 L Hgb 8.0 L Hct 25.8 L MCV MCH 27 L MCHC 31 L RDW 20.0 H Lymph % (Auto) [place] % (Auto) Eos % (Auto) Lymph # [place] # Eos # Seg Neutrophils % Seg Neuts % (Manual) Lymphocytes % (Manual) Eosinophils % (Manual) Seg Neutrophils # Lymphocytes # (Manual) Eosinophils # (Manual) PT INR D-Dimer POC ABG pH POC ABG pCO2 POC ABG pO2 ABG pO2 ABG HCO3 ABG Base Excess ABG Hemoglobin Oxyhemoglobin Sodium Potassium Chloride Carbon Dioxide BUN Creatinine Glucose POC Glucose 141 H 106 H Calcium Phosphorus Magnesium ALT Alkaline Phosphatase Total Creatine Kinase CK-MB (CK-2) Rel Index Troponin T Albumin LDL Cholesterol Direct PTH Intact Salicylates Acetaminophen Crossmatch 02/26/19 02/26/19 02/26/19 03:45 04:13 07:53 WBC RBC Hgb Hct MCV MCH MCHC RDW Lymph % (Auto) [place] % (Auto) Eos % (Auto) Lymph # [place] # Eos # Seg Neutrophils % Seg Neuts % (Manual) Lymphocytes % (Manual) Eosinophils % (Manual) Seg Neutrophils # Lymphocytes # (Manual) Eosinophils # (Manual) PT INR D-Dimer POC ABG pH 7.470 H POC ABG pCO2 POC ABG pO2 ABG pO2 ABG HCO3 ABG Base Excess ABG Hemoglobin Oxyhemoglobin Sodium Potassium Chloride Carbon Dioxide BUN Creatinine 1.8 H Glucose POC Glucose 110 H Calcium Phosphorus Magnesium ALT Alkaline Phosphatase Total Creatine Kinase CK-MB (CK-2) Rel Index Troponin T Albumin LDL Cholesterol Direct PTH Intact Salicylates Acetaminophen Crossmatch 02/26/19 02/26/19 02/27/19 11:56 17:43 00:12 WBC RBC Hgb Hct MCV MCH MCHC RDW Lymph % (Auto) [place] % (Auto) Eos % (Auto) Lymph # [place] # Eos # Seg Neutrophils % Seg Neuts % (Manual) Lymphocytes % (Manual) Eosinophils % (Manual) Seg Neutrophils # Lymphocytes # (Manual) Eosinophils # (Manual) PT INR D-Dimer POC ABG pH POC ABG pCO2 POC ABG pO2 ABG pO2 ABG HCO3 ABG Base Excess ABG Hemoglobin Oxyhemoglobin Sodium Potassium Chloride Carbon Dioxide BUN Creatinine Glucose POC Glucose 112 H 127 H 127 H Calcium Phosphorus Magnesium ALT Alkaline Phosphatase Total Creatine Kinase CK-MB (CK-2) Rel Index Troponin T Albumin LDL Cholesterol Direct PTH Intact Salicylates Acetaminophen Crossmatch 02/27/19 02/27/19 02/27/19 04:35 13:15 18:02 WBC RBC Hgb Hct MCV MCH MCHC RDW Lymph % (Auto) [place] % (Auto) Eos % (Auto) Lymph # [place] # Eos # Seg Neutrophils % Seg Neuts % (Manual) Lymphocytes % (Manual) Eosinophils % (Manual) Seg Neutrophils # Lymphocytes # (Manual) Eosinophils # (Manual) PT INR D-Dimer POC ABG pH 7.483 H POC ABG pCO2 POC ABG pO2 61 L ABG pO2 ABG HCO3 ABG Base Excess ABG Hemoglobin Oxyhemoglobin Sodium Potassium Chloride Carbon Dioxide BUN Creatinine Glucose POC Glucose 143 H 106 H Calcium Phosphorus Magnesium ALT Alkaline Phosphatase Total Creatine Kinase CK-MB (CK-2) Rel Index Troponin T Albumin LDL Cholesterol Direct PTH Intact Salicylates Acetaminophen Crossmatch 02/28/19 02/28/19 02/28/19 05:50 11:59 17:52 WBC RBC Hgb Hct MCV MCH MCHC RDW Lymph % (Auto) [place] % (Auto) Eos % (Auto) Lymph # [place] # Eos # Seg Neutrophils % Seg Neuts % (Manual) Lymphocytes % (Manual) Eosinophils % (Manual) Seg Neutrophils # Lymphocytes # (Manual) Eosinophils # (Manual) PT INR D-Dimer POC ABG pH POC ABG pCO2 POC ABG pO2 ABG pO2 ABG HCO3 ABG Base Excess ABG Hemoglobin Oxyhemoglobin Sodium Potassium Chloride Carbon Dioxide BUN Creatinine Glucose POC Glucose 134 H 128 H 142 H Calcium Phosphorus Magnesium ALT Alkaline Phosphatase Total Creatine Kinase CK-MB (CK-2) Rel Index Troponin T Albumin LDL Cholesterol Direct PTH Intact Salicylates Acetaminophen Crossmatch 02/28/19 03/01/19 03/01/19 23:13 05:40 09:39 WBC RBC Hgb Hct MCV MCH MCHC RDW Lymph % (Auto) [place] % (Auto) Eos % (Auto) Lymph # [place] # Eos # Seg Neutrophils % Seg Neuts % (Manual) Lymphocytes % (Manual) Eosinophils % (Manual) Seg Neutrophils # Lymphocytes # (Manual) Eosinophils # (Manual) PT 16.3 H INR 1.35 H D-Dimer POC ABG pH POC ABG pCO2 POC ABG pO2 ABG pO2 ABG HCO3 ABG Base Excess ABG Hemoglobin Oxyhemoglobin Sodium Potassium Chloride Carbon Dioxide BUN Creatinine Glucose POC Glucose 112 H 111 H Calcium Phosphorus Magnesium ALT Alkaline Phosphatase Total Creatine Kinase CK-MB (CK-2) Rel Index Troponin T Albumin LDL Cholesterol Direct PTH Intact Salicylates Acetaminophen Crossmatch 03/01/19 03/01/19 03/01/19 11:56 13:54 17:59 WBC RBC Hgb Hct MCV MCH MCHC RDW Lymph % (Auto) [place] % (Auto) Eos % (Auto) Lymph # [place] # Eos # Seg Neutrophils % Seg Neuts % (Manual) Lymphocytes % (Manual) Eosinophils % (Manual) Seg Neutrophils # Lymphocytes # (Manual) Eosinophils # (Manual) PT INR D-Dimer POC ABG pH POC ABG pCO2 POC ABG pO2 ABG pO2 ABG HCO3 ABG Base Excess ABG Hemoglobin Oxyhemoglobin Sodium Potassium Chloride Carbon Dioxide BUN 33 H Creatinine 2.8 H D Glucose 176 H POC Glucose 199 H 147 H Calcium Phosphorus Magnesium ALT Alkaline Phosphatase Total Creatine Kinase CK-MB (CK-2) Rel Index Troponin T Albumin LDL Cholesterol Direct PTH Intact Salicylates Acetaminophen Crossmatch 03/02/19 03/02/19 03/02/19 05:15 05:15 05:15 WBC RBC 2.73 L Hgb 7.4 L Hct 23.0 L MCV MCH 27 L MCHC RDW 19.9 H Lymph % (Auto) [place] % (Auto) 7.9 H Eos % (Auto) 7.6 H Lymph # 1.0 L [place] # Eos # 0.5 H Seg Neutrophils % Seg Neuts % (Manual) Lymphocytes % (Manual) Eosinophils % (Manual) Seg Neutrophils # Lymphocytes # (Manual) Eosinophils # (Manual) PT INR D-Dimer POC ABG pH POC ABG pCO2 POC ABG pO2 ABG pO2 ABG HCO3 ABG Base Excess ABG Hemoglobin Oxyhemoglobin Sodium Potassium Chloride Carbon Dioxide BUN 43 H Creatinine 3.2 H Glucose POC Glucose Calcium Phosphorus 2.30 L Magnesium ALT Alkaline Phosphatase Total Creatine Kinase CK-MB (CK-2) Rel Index Troponin T Albumin LDL Cholesterol Direct PTH Intact 267.6 H Salicylates Acetaminophen Crossmatch 03/02/19 03/02/19 03/03/19 12:32 18:20 13:30 WBC RBC Hgb Hct MCV MCH MCHC RDW Lymph % (Auto) [place] % (Auto) Eos % (Auto) Lymph # [place] # Eos # Seg Neutrophils % Seg Neuts % (Manual) Lymphocytes % (Manual) Eosinophils % (Manual) Seg Neutrophils # Lymphocytes # (Manual) Eosinophils # (Manual) PT INR D-Dimer POC ABG pH POC ABG pCO2 POC ABG pO2 ABG pO2 ABG HCO3 ABG Base Excess ABG Hemoglobin Oxyhemoglobin Sodium Potassium Chloride 97.3 L Carbon Dioxide BUN 26 H Creatinine 2.2 H Glucose 73 L POC Glucose 111 H 156 H Calcium Phosphorus Magnesium ALT Alkaline Phosphatase Total Creatine Kinase CK-MB (CK-2) Rel Index Troponin T Albumin LDL Cholesterol Direct PTH Intact Salicylates Acetaminophen Crossmatch 03/04/19 03/04/19 03/04/19 00:02 05:37 05:40 WBC RBC 2.63 L Hgb 7.2 L Hct 22.2 L MCV MCH MCHC RDW 20.2 H Lymph % (Auto) 10.5 L [place] % (Auto) Eos % (Auto) 4.6 H Lymph # 0.7 L [place] # Eos # Seg Neutrophils % 76.9 H Seg Neuts % (Manual) Lymphocytes % (Manual) Eosinophils % (Manual) Seg Neutrophils # Lymphocytes # (Manual) Eosinophils # (Manual) PT INR D-Dimer POC ABG pH POC ABG pCO2 POC ABG pO2 ABG pO2 ABG HCO3 ABG Base Excess ABG Hemoglobin Oxyhemoglobin Sodium Potassium Chloride Carbon Dioxide BUN Creatinine Glucose POC Glucose 136 H 123 H Calcium Phosphorus Magnesium ALT Alkaline Phosphatase Total Creatine Kinase CK-MB (CK-2) Rel Index Troponin T Albumin LDL Cholesterol Direct PTH Intact Salicylates Acetaminophen Crossmatch 03/04/19 03/04/19 03/04/19 05:40 11:39 23:20 WBC RBC Hgb Hct MCV MCH MCHC RDW Lymph % (Auto) [place] % (Auto) Eos % (Auto) Lymph # [place] # Eos # Seg Neutrophils % Seg Neuts % (Manual) Lymphocytes % (Manual) Eosinophils % (Manual) Seg Neutrophils # Lymphocytes # (Manual) Eosinophils # (Manual) PT INR D-Dimer POC ABG pH POC ABG pCO2 POC ABG pO2 ABG pO2 ABG HCO3 ABG Base Excess ABG Hemoglobin Oxyhemoglobin Sodium Potassium Chloride Carbon Dioxide BUN 34 H Creatinine 2.7 H Glucose 114 H POC Glucose 175 H 151 H Calcium Phosphorus Magnesium ALT Alkaline Phosphatase Total Creatine Kinase CK-MB (CK-2) Rel Index Troponin T Albumin LDL Cholesterol Direct PTH Intact Salicylates Acetaminophen Crossmatch 03/05/19 03/05/19 03/05/19 05:37 12:08 17:11 WBC RBC Hgb Hct MCV MCH MCHC RDW Lymph % (Auto) [place] % (Auto) Eos % (Auto) Lymph # [place] # Eos # Seg Neutrophils % Seg Neuts % (Manual) Lymphocytes % (Manual) Eosinophils % (Manual) Seg Neutrophils # Lymphocytes # (Manual) Eosinophils # (Manual) PT INR D-Dimer POC ABG pH POC ABG pCO2 POC ABG pO2 ABG pO2 ABG HCO3 ABG Base Excess ABG Hemoglobin Oxyhemoglobin Sodium Potassium Chloride Carbon Dioxide BUN Creatinine Glucose POC Glucose 134 H 135 H 135 H Calcium Phosphorus Magnesium ALT Alkaline Phosphatase Total Creatine Kinase CK-MB (CK-2) Rel Index Troponin T Albumin LDL Cholesterol Direct PTH Intact Salicylates Acetaminophen Crossmatch 03/06/19 03/06/19 03/06/19 00:16 13:05 18:09 WBC RBC Hgb Hct MCV MCH MCHC RDW Lymph % (Auto) [place] % (Auto) Eos % (Auto) Lymph # [place] # Eos # Seg Neutrophils % Seg Neuts % (Manual) Lymphocytes % (Manual) Eosinophils % (Manual) Seg Neutrophils # Lymphocytes # (Manual) Eosinophils # (Manual) PT INR D-Dimer POC ABG pH POC ABG pCO2 POC ABG pO2 ABG pO2 ABG HCO3 ABG Base Excess ABG Hemoglobin Oxyhemoglobin Sodium Potassium Chloride Carbon Dioxide BUN Creatinine Glucose POC Glucose 117 H 113 H 131 H Calcium Phosphorus Magnesium ALT Alkaline Phosphatase Total Creatine Kinase CK-MB (CK-2) Rel Index Troponin T Albumin LDL Cholesterol Direct PTH Intact Salicylates Acetaminophen Crossmatch 03/07/19 03/08/19 03/08/19 05:25 05:33 16:00 WBC RBC 2.44 L Hgb 6.6 L Hct 20.8 L MCV MCH 27 L MCHC RDW 19.2 H Lymph % (Auto) [place] % (Auto) Eos % (Auto) 8.6 H Lymph # 0.8 L [place] # Eos # 0.5 H Seg Neutrophils % 70.7 H Seg Neuts % (Manual) Lymphocytes % (Manual) Eosinophils % (Manual) Seg Neutrophils # Lymphocytes # (Manual) Eosinophils # (Manual) PT INR D-Dimer POC ABG pH POC ABG pCO2 POC ABG pO2 ABG pO2 ABG HCO3 ABG Base Excess ABG Hemoglobin Oxyhemoglobin Sodium Potassium Chloride Carbon Dioxide BUN Creatinine Glucose POC Glucose 106 H 108 H Calcium Phosphorus Magnesium ALT Alkaline Phosphatase Total Creatine Kinase CK-MB (CK-2) Rel Index Troponin T Albumin LDL Cholesterol Direct PTH Intact Salicylates Acetaminophen Crossmatch 03/08/19 03/08/19 03/08/19 16:00 18:38 Unknown WBC RBC Hgb Hct MCV MCH MCHC RDW Lymph % (Auto) [place] % (Auto) Eos % (Auto) Lymph # [place] # Eos # Seg Neutrophils % Seg Neuts % (Manual) Lymphocytes % (Manual) Eosinophils % (Manual) Seg Neutrophils # Lymphocytes # (Manual) Eosinophils # (Manual) PT INR D-Dimer POC ABG pH POC ABG pCO2 POC ABG pO2 ABG pO2 ABG HCO3 ABG Base Excess ABG Hemoglobin Oxyhemoglobin Sodium Potassium 5.4 H D Chloride Carbon Dioxide BUN 47 H Creatinine 2.6 H Glucose POC Glucose 123 H Calcium Phosphorus Magnesium ALT < 5 L Alkaline Phosphatase Total Creatine Kinase CK-MB (CK-2) Rel Index Troponin T Albumin 2.2 L LDL Cholesterol Direct PTH Intact Salicylates Acetaminophen Crossmatch See Detail 03/09/19 03/09/19 03/09/19 10:48 12:28 13:53 WBC RBC 2.85 L Hgb 7.7 L Hct 24.2 L MCV MCH 27 L MCHC RDW 18.7 H Lymph % (Auto) [place] % (Auto) Eos % (Auto) Lymph # [place] # Eos # Seg Neutrophils % Seg Neuts % (Manual) Lymphocytes % (Manual) Eosinophils % (Manual) Seg Neutrophils # Lymphocytes # (Manual) Eosinophils # (Manual) PT INR D-Dimer POC ABG pH POC ABG pCO2 POC ABG pO2 ABG pO2 ABG HCO3 30.5 H ABG Base Excess 5.6 H ABG Hemoglobin 8.1 L Oxyhemoglobin 93.8 L Sodium Potassium Chloride Carbon Dioxide BUN Creatinine Glucose POC Glucose 114 H Calcium Phosphorus Magnesium ALT Alkaline Phosphatase Total Creatine Kinase CK-MB (CK-2) Rel Index Troponin T Albumin LDL Cholesterol Direct PTH Intact Salicylates Acetaminophen Crossmatch 03/09/19 03/09/19 03/10/19 17:58 23:53 12:01 WBC RBC Hgb Hct MCV MCH MCHC RDW Lymph % (Auto) [place] % (Auto) Eos % (Auto) Lymph # [place] # Eos # Seg Neutrophils % Seg Neuts % (Manual) Lymphocytes % (Manual) Eosinophils % (Manual) Seg Neutrophils # Lymphocytes # (Manual) Eosinophils # (Manual) PT INR D-Dimer POC ABG pH POC ABG pCO2 POC ABG pO2 ABG pO2 ABG HCO3 ABG Base Excess ABG Hemoglobin Oxyhemoglobin Sodium Potassium Chloride Carbon Dioxide BUN Creatinine Glucose POC Glucose 108 H 128 H 144 H Calcium Phosphorus Magnesium ALT Alkaline Phosphatase Total Creatine Kinase CK-MB (CK-2) Rel Index Troponin T Albumin LDL Cholesterol Direct PTH Intact Salicylates Acetaminophen Crossmatch 03/10/19 03/11/19 03/11/19 16:50 00:24 05:02 WBC RBC Hgb Hct MCV MCH MCHC RDW Lymph % (Auto) [place] % (Auto) Eos % (Auto) Lymph # [place] # Eos # Seg Neutrophils % Seg Neuts % (Manual) Lymphocytes % (Manual) Eosinophils % (Manual) Seg Neutrophils # Lymphocytes # (Manual) Eosinophils # (Manual) PT INR D-Dimer POC ABG pH POC ABG pCO2 POC ABG pO2 ABG pO2 ABG HCO3 ABG Base Excess ABG Hemoglobin Oxyhemoglobin Sodium Potassium Chloride Carbon Dioxide BUN Creatinine Glucose POC Glucose 147 H 123 H 120 H Calcium Phosphorus Magnesium ALT Alkaline Phosphatase Total Creatine Kinase CK-MB (CK-2) Rel Index Troponin T Albumin LDL Cholesterol Direct PTH Intact Salicylates Acetaminophen Crossmatch 03/11/19 03/11/19 03/11/19 11:56 12:20 18:37 WBC RBC Hgb Hct MCV MCH MCHC RDW Lymph % (Auto) [place] % (Auto) Eos % (Auto) Lymph # [place] # Eos # Seg Neutrophils % Seg Neuts % (Manual) Lymphocytes % (Manual) Eosinophils % (Manual) Seg Neutrophils # Lymphocytes # (Manual) Eosinophils # (Manual) PT INR D-Dimer POC ABG pH POC ABG pCO2 POC ABG pO2 ABG pO2 ABG HCO3 ABG Base Excess ABG Hemoglobin Oxyhemoglobin Sodium Potassium 5.2 H Chloride Carbon Dioxide BUN Creatinine Glucose POC Glucose 123 H 125 H Calcium Phosphorus Magnesium ALT Alkaline Phosphatase Total Creatine Kinase CK-MB (CK-2) Rel Index Troponin T Albumin LDL Cholesterol Direct PTH Intact Salicylates Acetaminophen Crossmatch 03/11/19 03/12/19 03/12/19 22:52 12:04 18:25 WBC RBC Hgb Hct MCV MCH MCHC RDW Lymph % (Auto) [place] % (Auto) Eos % (Auto) Lymph # [place] # Eos # Seg Neutrophils % Seg Neuts % (Manual) Lymphocytes % (Manual) Eosinophils % (Manual) Seg Neutrophils # Lymphocytes # (Manual) Eosinophils # (Manual) PT INR D-Dimer POC ABG pH POC ABG pCO2 POC ABG pO2 ABG pO2 ABG HCO3 ABG Base Excess ABG Hemoglobin Oxyhemoglobin Sodium Potassium Chloride Carbon Dioxide BUN Creatinine Glucose POC Glucose 110 H 106 H 118 H Calcium Phosphorus Magnesium ALT Alkaline Phosphatase Total Creatine Kinase CK-MB (CK-2) Rel Index Troponin T Albumin LDL Cholesterol Direct PTH Intact Salicylates Acetaminophen Crossmatch 03/12/19 03/13/1919 23:36 04:38 04:38 WBC RBC 2.95 L Hgb 7.9 L Hct 24.9 L MCV MCH 27 L MCHC RDW 19.9 H Lymph % (Auto) 11.1 L [place] % (Auto) 8.1 H Eos % (Auto) 4.4 H Lymph # 0.9 L [place] # Eos # Seg Neutrophils % 75.4 H Seg Neuts % (Manual) Lymphocytes % (Manual) Eosinophils % (Manual) Seg Neutrophils # Lymphocytes # (Manual) Eosinophils # (Manual) PT INR D-Dimer POC ABG pH POC ABG pCO2 POC ABG pO2 ABG pO2 ABG HCO3 ABG Base Excess ABG Hemoglobin Oxyhemoglobin Sodium 136 L Potassium 5.1 H Chloride 93.8 L Carbon Dioxide BUN 48 H Creatinine 2.7 H Glucose 102 H POC Glucose 115 H Calcium Phosphorus Magnesium ALT < 5 L Alkaline Phosphatase 143 H Total Creatine Kinase CK-MB (CK-2) Rel Index Troponin T Albumin 2.5 L LDL Cholesterol Direct PTH Intact Salicylates Acetaminophen Crossmatch 03/13/19 03/13/19 03/13/19 05:33 13:37 18:03 WBC RBC Hgb Hct MCV MCH MCHC RDW Lymph % (Auto) [place] % (Auto) Eos % (Auto) Lymph # [place] # Eos # Seg Neutrophils % Seg Neuts % (Manual) Lymphocytes % (Manual) Eosinophils % (Manual) Seg Neutrophils # Lymphocytes # (Manual) Eosinophils # (Manual) PT INR D-Dimer POC ABG pH POC ABG pCO2 POC ABG pO2 ABG pO2 ABG HCO3 ABG Base Excess ABG Hemoglobin Oxyhemoglobin Sodium Potassium Chloride Carbon Dioxide BUN Creatinine Glucose POC Glucose 140 H 150 H 158 H Calcium Phosphorus Magnesium ALT Alkaline Phosphatase Total Creatine Kinase CK-MB (CK-2) Rel Index Troponin T Albumin LDL Cholesterol Direct PTH Intact Salicylates Acetaminophen Crossmatch 03/13/19 03/14/19 03/14/19 23:32 05:24 12:20 WBC RBC Hgb Hct MCV MCH MCHC RDW Lymph % (Auto) [place] % (Auto) Eos % (Auto) Lymph # [place] # Eos # Seg Neutrophils % Seg Neuts % (Manual) Lymphocytes % (Manual) Eosinophils % (Manual) Seg Neutrophils # Lymphocytes # (Manual) Eosinophils # (Manual) PT INR D-Dimer POC ABG pH POC ABG pCO2 POC ABG pO2 ABG pO2 ABG HCO3 ABG Base Excess ABG Hemoglobin Oxyhemoglobin Sodium Potassium Chloride Carbon Dioxide BUN Creatinine Glucose POC Glucose 162 H 146 H 127 H Calcium Phosphorus Magnesium ALT Alkaline Phosphatase Total Creatine Kinase CK-MB (CK-2) Rel Index Troponin T Albumin LDL Cholesterol Direct PTH Intact Salicylates Acetaminophen Crossmatch 03/14/19 03/14/19 03/15/19 18:05 23:57 04:38 WBC 12.8 H RBC 3.11 L Hgb 8.1 L Hct 26.5 L MCV MCH 26 L MCHC 31 L RDW 19.7 H Lymph % (Auto) 4.4 L [place] % (Auto) 7.4 H Eos % (Auto) Lymph # 0.6 L [place] # 0.9 H Eos # Seg Neutrophils % 87.3 H Seg Neuts % (Manual) Lymphocytes % (Manual) Eosinophils % (Manual) Seg Neutrophils # 11.2 H Lymphocytes # (Manual) Eosinophils # (Manual) PT INR D-Dimer POC ABG pH POC ABG pCO2 POC ABG pO2 ABG pO2 ABG HCO3 ABG Base Excess ABG Hemoglobin Oxyhemoglobin Sodium Potassium Chloride Carbon Dioxide BUN Creatinine Glucose POC Glucose 142 H 155 H Calcium Phosphorus Magnesium ALT Alkaline Phosphatase Total Creatine Kinase CK-MB (CK-2) Rel Index Troponin T Albumin LDL Cholesterol Direct PTH Intact Salicylates Acetaminophen Crossmatch 03/15/19 03/15/19 03/15/19 04:38 05:31 11:32 WBC RBC Hgb Hct MCV MCH MCHC RDW Lymph % (Auto) [place] % (Auto) Eos % (Auto) Lymph # [place] # Eos # Seg Neutrophils % Seg Neuts % (Manual) Lymphocytes % (Manual) Eosinophils % (Manual) Seg Neutrophils # Lymphocytes # (Manual) Eosinophils # (Manual) PT INR D-Dimer POC ABG pH POC ABG pCO2 POC ABG pO2 ABG pO2 ABG HCO3 ABG Base Excess ABG Hemoglobin Oxyhemoglobin Sodium 135 L Potassium Chloride 91.9 L Carbon Dioxide BUN 54 H Creatinine 2.8 H Glucose 128 H POC Glucose 160 H 109 H Calcium 11.1 H Phosphorus Magnesium ALT Alkaline Phosphatase 161 H Total Creatine Kinase CK-MB (CK-2) Rel Index Troponin T Albumin 2.3 L LDL Cholesterol Direct PTH Intact Salicylates Acetaminophen Crossmatch 03/15/19 03/15/19 03/16/19 18:15 23:41 05:40 WBC RBC Hgb Hct MCV MCH MCHC RDW Lymph % (Auto) [place] % (Auto) Eos % (Auto) Lymph # [place] # Eos # Seg Neutrophils % Seg Neuts % (Manual) Lymphocytes % (Manual) Eosinophils % (Manual) Seg Neutrophils # Lymphocytes # (Manual) Eosinophils # (Manual) PT INR D-Dimer POC ABG pH POC ABG pCO2 POC ABG pO2 ABG pO2 ABG HCO3 ABG Base Excess ABG Hemoglobin Oxyhemoglobin Sodium Potassium Chloride Carbon Dioxide BUN Creatinine Glucose POC Glucose 151 H 110 H 163 H Calcium Phosphorus Magnesium ALT Alkaline Phosphatase Total Creatine Kinase CK-MB (CK-2) Rel Index Troponin T Albumin LDL Cholesterol Direct PTH Intact Salicylates Acetaminophen Crossmatch 03/16/19 03/16/19 03/16/19 11:55 17:04 23:58 WBC RBC Hgb Hct MCV MCH MCHC RDW Lymph % (Auto) [place] % (Auto) Eos % (Auto) Lymph # [place] # Eos # Seg Neutrophils % Seg Neuts % (Manual) Lymphocytes % (Manual) Eosinophils % (Manual) Seg Neutrophils # Lymphocytes # (Manual) Eosinophils # (Manual) PT INR D-Dimer POC ABG pH POC ABG pCO2 POC ABG pO2 ABG pO2 ABG HCO3 ABG Base Excess ABG Hemoglobin Oxyhemoglobin Sodium Potassium Chloride Carbon Dioxide BUN Creatinine Glucose POC Glucose 114 H 147 H 192 H Calcium Phosphorus Magnesium ALT Alkaline Phosphatase Total Creatine Kinase CK-MB (CK-2) Rel Index Troponin T Albumin LDL Cholesterol Direct PTH Intact Salicylates Acetaminophen Crossmatch 03/17/19 03/17/19 03/17/19 05:53 11:17 17:01 WBC RBC Hgb Hct MCV MCH MCHC RDW Lymph % (Auto) [place] % (Auto) Eos % (Auto) Lymph # [place] # Eos # Seg Neutrophils % Seg Neuts % (Manual) Lymphocytes % (Manual) Eosinophils % (Manual) Seg Neutrophils # Lymphocytes # (Manual) Eosinophils # (Manual) PT INR D-Dimer POC ABG pH POC ABG pCO2 POC ABG pO2 ABG pO2 ABG HCO3 ABG Base Excess ABG Hemoglobin Oxyhemoglobin Sodium Potassium Chloride Carbon Dioxide BUN Creatinine Glucose POC Glucose 151 H 161 H 152 H Calcium Phosphorus Magnesium ALT Alkaline Phosphatase Total Creatine Kinase CK-MB (CK-2) Rel Index Troponin T Albumin LDL Cholesterol Direct PTH Intact Salicylates Acetaminophen Crossmatch 03/17/19 03/18/19 03/18/19 21:47 04:15 04:44 WBC RBC Hgb Hct MCV MCH MCHC RDW Lymph % (Auto) [place] % (Auto) Eos % (Auto) Lymph # [place] # Eos # Seg Neutrophils % Seg Neuts % (Manual) Lymphocytes % (Manual) Eosinophils % (Manual) Seg Neutrophils # Lymphocytes # (Manual) Eosinophils # (Manual) PT INR D-Dimer POC ABG pH POC ABG pCO2 POC ABG pO2 ABG pO2 102.8 H ABG HCO3 28.3 H ABG Base Excess ABG Hemoglobin 10.4 L Oxyhemoglobin 94.5 L Sodium Potassium Chloride Carbon Dioxide BUN Creatinine Glucose POC Glucose 170 H 150 H Calcium Phosphorus Magnesium ALT Alkaline Phosphatase Total Creatine Kinase CK-MB (CK-2) Rel Index Troponin T Albumin LDL Cholesterol Direct PTH Intact Salicylates Acetaminophen Crossmatch 03/18/19 03/18/19 03/18/19 06:38 12:12 17:47 WBC RBC Hgb Hct MCV MCH MCHC RDW Lymph % (Auto) [place] % (Auto) Eos % (Auto) Lymph # [place] # Eos # Seg Neutrophils % Seg Neuts % (Manual) Lymphocytes % (Manual) Eosinophils % (Manual) Seg Neutrophils # Lymphocytes # (Manual) Eosinophils # (Manual) PT INR D-Dimer POC ABG pH 7.510 H POC ABG pCO2 POC ABG pO2 164 H ABG pO2 ABG HCO3 ABG Base Excess ABG Hemoglobin Oxyhemoglobin Sodium Potassium Chloride Carbon Dioxide BUN Creatinine Glucose POC Glucose 145 H 149 H Calcium Phosphorus Magnesium ALT Alkaline Phosphatase Total Creatine Kinase CK-MB (CK-2) Rel Index Troponin T Albumin LDL Cholesterol Direct PTH Intact Salicylates Acetaminophen Crossmatch 03/18/19 03/19/19 03/19/19 23:25 01:11 04:23 WBC 15.6 H RBC 2.51 L Hgb 6.5 L Hct 21.6 L MCV MCH 26 L MCHC 30 L RDW 19.8 H Lymph % (Auto) 6.0 L [place] % (Auto) Eos % (Auto) Lymph # 0.9 L [place] # 1.0 H Eos # Seg Neutrophils % 85.5 H Seg Neuts % (Manual) Lymphocytes % (Manual) Eosinophils % (Manual) Seg Neutrophils # 13.4 H Lymphocytes # (Manual) Eosinophils # (Manual) PT INR D-Dimer POC ABG pH POC ABG pCO2 POC ABG pO2 ABG pO2 78.3 L ABG HCO3 30.7 H ABG Base Excess 5.8 H ABG Hemoglobin 5.8 L Oxyhemoglobin 94.6 L Sodium Potassium Chloride Carbon Dioxide BUN Creatinine Glucose POC Glucose 190 H Calcium Phosphorus Magnesium ALT Alkaline Phosphatase Total Creatine Kinase CK-MB (CK-2) Rel Index Troponin T Albumin LDL Cholesterol Direct PTH Intact Salicylates Acetaminophen Crossmatch 03/19/19 03/19/19 03/19/19 05:22 05:35 08:54 WBC RBC Hgb Hct MCV MCH MCHC RDW Lymph % (Auto) [place] % (Auto) Eos % (Auto) Lymph # [place] # Eos # Seg Neutrophils % Seg Neuts % (Manual) Lymphocytes % (Manual) Eosinophils % (Manual) Seg Neutrophils # Lymphocytes # (Manual) Eosinophils # (Manual) PT INR D-Dimer POC ABG pH POC ABG pCO2 POC ABG pO2 ABG pO2 ABG HCO3 ABG Base Excess ABG Hemoglobin Oxyhemoglobin Sodium Potassium Chloride Carbon Dioxide BUN Creatinine Glucose POC Glucose 167 H Calcium Phosphorus Magnesium ALT Alkaline Phosphatase Total Creatine Kinase CK-MB (CK-2) Rel Index Troponin T Albumin LDL Cholesterol Direct PTH Intact Salicylates Acetaminophen Crossmatch See Detail See Detail 03/19/19 03/19/19 03/19/19 12:36 17:02 23:25 WBC RBC Hgb Hct MCV MCH MCHC RDW Lymph % (Auto) [place] % (Auto) Eos % (Auto) Lymph # [place] # Eos # Seg Neutrophils % Seg Neuts % (Manual) Lymphocytes % (Manual) Eosinophils % (Manual) Seg Neutrophils # Lymphocytes # (Manual) Eosinophils # (Manual) PT INR D-Dimer POC ABG pH POC ABG pCO2 POC ABG pO2 ABG pO2 ABG HCO3 ABG Base Excess ABG Hemoglobin Oxyhemoglobin Sodium Potassium Chloride Carbon Dioxide BUN Creatinine Glucose POC Glucose 167 H 135 H 136 H Calcium Phosphorus Magnesium ALT Alkaline Phosphatase Total Creatine Kinase CK-MB (CK-2) Rel Index Troponin T Albumin LDL Cholesterol Direct PTH Intact Salicylates Acetaminophen Crossmatch 03/20/19 03/20/19 03/20/19 05:38 08:40 08:40 WBC RBC 2.61 L Hgb 7.1 L Hct 22.0 L MCV MCH 27 L MCHC RDW 19.6 H Lymph % (Auto) 8.2 L [place] % (Auto) 8.3 H Eos % (Auto) 5.7 H Lymph # 0.8 L [place] # Eos # 0.5 H Seg Neutrophils % 77.3 H Seg Neuts % (Manual) Lymphocytes % (Manual) Eosinophils % (Manual) Seg Neutrophils # Lymphocytes # (Manual) Eosinophils # (Manual) PT INR D-Dimer POC ABG pH POC ABG pCO2 POC ABG pO2 ABG pO2 ABG HCO3 ABG Base Excess ABG Hemoglobin Oxyhemoglobin Sodium Potassium Chloride 95.9 L Carbon Dioxide BUN 69 H Creatinine 2.8 H Glucose 115 H POC Glucose 134 H Calcium 10.5 H Phosphorus Magnesium ALT Alkaline Phosphatase Total Creatine Kinase CK-MB (CK-2) Rel Index Troponin T Albumin LDL Cholesterol Direct PTH Intact Salicylates Acetaminophen Crossmatch 03/20/19 03/20/19 03/20/19 12:13 18:04 23:49 WBC RBC Hgb Hct MCV MCH MCHC RDW Lymph % (Auto) [place] % (Auto) Eos % (Auto) Lymph # [place] # Eos # Seg Neutrophils % Seg Neuts % (Manual) Lymphocytes % (Manual) Eosinophils % (Manual) Seg Neutrophils # Lymphocytes # (Manual) Eosinophils # (Manual) PT INR D-Dimer POC ABG pH POC ABG pCO2 POC ABG pO2 ABG pO2 ABG HCO3 ABG Base Excess ABG Hemoglobin Oxyhemoglobin Sodium Potassium Chloride Carbon Dioxide BUN Creatinine Glucose POC Glucose 144 H 165 H 172 H Calcium Phosphorus Magnesium ALT Alkaline Phosphatase Total Creatine Kinase CK-MB (CK-2) Rel Index Troponin T Albumin LDL Cholesterol Direct PTH Intact Salicylates Acetaminophen Crossmatch 03/21/19 03/21/19 03/21/19 05:00 06:29 06:30 WBC RBC 2.72 L Hgb 7.4 L Hct 22.9 L MCV MCH 27 L MCHC RDW 19.4 H Lymph % (Auto) [place] % (Auto) Eos % (Auto) Lymph # [place] # Eos # Seg Neutrophils % Seg Neuts % (Manual) 81.0 H Lymphocytes % (Manual) 8.0 L Eosinophils % (Manual) 8.0 H Seg Neutrophils # Lymphocytes # (Manual) 0.7 L Eosinophils # (Manual) 0.7 H PT INR D-Dimer POC ABG pH POC ABG pCO2 POC ABG pO2 ABG pO2 ABG HCO3 ABG Base Excess ABG Hemoglobin Oxyhemoglobin Sodium Potassium Chloride Carbon Dioxide 33 H BUN 43 H Creatinine 1.7 H Glucose 145 H POC Glucose 156 H Calcium Phosphorus Magnesium ALT Alkaline Phosphatase 212 H Total Creatine Kinase CK-MB (CK-2) Rel Index Troponin T Albumin 2.2 L LDL Cholesterol Direct PTH Intact Salicylates Acetaminophen Crossmatch 03/21/19 03/21/19 03/22/19 12:02 18:07 00:21 WBC RBC Hgb Hct MCV MCH MCHC RDW Lymph % (Auto) [place] % (Auto) Eos % (Auto) Lymph # [place] # Eos # Seg Neutrophils % Seg Neuts % (Manual) Lymphocytes % (Manual) Eosinophils % (Manual) Seg Neutrophils # Lymphocytes # (Manual) Eosinophils # (Manual) PT INR D-Dimer POC ABG pH POC ABG pCO2 POC ABG pO2 ABG pO2 ABG HCO3 ABG Base Excess ABG Hemoglobin Oxyhemoglobin Sodium Potassium Chloride Carbon Dioxide BUN Creatinine Glucose POC Glucose 163 H 144 H 153 H Calcium Phosphorus Magnesium ALT Alkaline Phosphatase Total Creatine Kinase CK-MB (CK-2) Rel Index Troponin T Albumin LDL Cholesterol Direct PTH Intact Salicylates Acetaminophen Crossmatch 03/22/19 03/22/19 03/22/19 05:23 05:23 05:31 WBC RBC 2.58 L Hgb 7.1 L Hct 21.8 L MCV MCH 27 L MCHC RDW 19.2 H Lymph % (Auto) [place] % (Auto) Eos % (Auto) Lymph # [place] # Eos # Seg Neutrophils % Seg Neuts % (Manual) Lymphocytes % (Manual) Eosinophils % (Manual) Seg Neutrophils # Lymphocytes # (Manual) Eosinophils # (Manual) PT INR D-Dimer POC ABG pH POC ABG pCO2 POC ABG pO2 ABG pO2 ABG HCO3 ABG Base Excess ABG Hemoglobin Oxyhemoglobin Sodium 147 H Potassium Chloride Carbon Dioxide BUN 68 H Creatinine 2.5 H Glucose POC Glucose 116 H Calcium 10.3 H Phosphorus Magnesium ALT Alkaline Phosphatase Total Creatine Kinase CK-MB (CK-2) Rel Index Troponin T Albumin LDL Cholesterol Direct PTH Intact Salicylates Acetaminophen Crossmatch 03/22/19 03/22/19 03/22/19 08:48 12:37 17:35 WBC RBC Hgb Hct MCV MCH MCHC RDW Lymph % (Auto) [place] % (Auto) Eos % (Auto) Lymph # [place] # Eos # Seg Neutrophils % Seg Neuts % (Manual) Lymphocytes % (Manual) Eosinophils % (Manual) Seg Neutrophils # Lymphocytes # (Manual) Eosinophils # (Manual) PT INR D-Dimer POC ABG pH POC ABG pCO2 POC ABG pO2 ABG pO2 ABG HCO3 ABG Base Excess ABG Hemoglobin Oxyhemoglobin Sodium Potassium Chloride Carbon Dioxide BUN Creatinine Glucose POC Glucose 143 H 155 H Calcium Phosphorus Magnesium ALT Alkaline Phosphatase Total Creatine Kinase CK-MB (CK-2) Rel Index Troponin T Albumin LDL Cholesterol Direct PTH Intact Salicylates Acetaminophen Crossmatch See Detail 03/23/19 03/23/19 03/23/19 00:07 04:00 04:00 WBC 11.2 H RBC 2.32 L Hgb 6.4 L Hct 19.7 L* MCV MCH MCHC RDW 19.4 H Lymph % (Auto) [place] % (Auto) Eos % (Auto) Lymph # [place] # Eos # Seg Neutrophils % Seg Neuts % (Manual) Lymphocytes % (Manual) Eosinophils % (Manual) Seg Neutrophils # Lymphocytes # (Manual) Eosinophils # (Manual) PT INR D-Dimer POC ABG pH POC ABG pCO2 POC ABG pO2 ABG pO2 ABG HCO3 ABG Base Excess ABG Hemoglobin Oxyhemoglobin Sodium 147 H Potassium 5.2 H Chloride Carbon Dioxide BUN 86 H Creatinine 3.2 H Glucose 128 H POC Glucose 135 H Calcium 10.3 H Phosphorus Magnesium ALT Alkaline Phosphatase Total Creatine Kinase CK-MB (CK-2) Rel Index Troponin T Albumin LDL Cholesterol Direct PTH Intact Salicylates Acetaminophen Crossmatch 03/23/19 03/23/19 03/23/19 05:21 11:36 11:36 WBC RBC Hgb 7.9 L Hct 25.0 L MCV MCH MCHC RDW Lymph % (Auto) [place] % (Auto) Eos % (Auto) Lymph # [place] # Eos # Seg Neutrophils % Seg Neuts % (Manual) Lymphocytes % (Manual) Eosinophils % (Manual) Seg Neutrophils # Lymphocytes # (Manual) Eosinophils # (Manual) PT INR D-Dimer POC ABG pH POC ABG pCO2 POC ABG pO2 ABG pO2 ABG HCO3 ABG Base Excess ABG Hemoglobin Oxyhemoglobin Sodium Potassium Chloride Carbon Dioxide BUN Creatinine Glucose POC Glucose 132 H 147 H Calcium Phosphorus Magnesium ALT Alkaline Phosphatase Total Creatine Kinase CK-MB (CK-2) Rel Index Troponin T Albumin LDL Cholesterol Direct PTH Intact Salicylates Acetaminophen Crossmatch 09/02/19 09/03/19 09/03/19 17:31 01:22 04:20 WBC 12.2 H RBC 3.05 L Hgb 8.3 L Hct 25.9 L MCV MCH 27 L MCHC RDW 18.7 H Lymph % (Auto) [place] % (Auto) Eos % (Auto) Lymph # [place] # Eos # Seg Neutrophils % Seg Neuts % (Manual) Lymphocytes % (Manual) Eosinophils % (Manual) Seg Neutrophils # Lymphocytes # (Manual) Eosinophils # (Manual) PT INR D-Dimer POC ABG pH POC ABG pCO2 POC ABG pO2 ABG pO2 ABG HCO3 ABG Base Excess ABG Hemoglobin Oxyhemoglobin Sodium Potassium Chloride Carbon Dioxide BUN Creatinine Glucose POC Glucose 182 H 113 H Calcium Phosphorus Magnesium ALT Alkaline Phosphatase Total Creatine Kinase CK-MB (CK-2) Rel Index Troponin T Albumin LDL Cholesterol Direct PTH Intact Salicylates Acetaminophen Crossmatch 03/24/19 03/24/19 03/24/19 04:20 11:59 18:14 WBC RBC Hgb Hct MCV MCH MCHC RDW Lymph % (Auto) [place] % (Auto) Eos % (Auto) Lymph # [place] # Eos # Seg Neutrophils % Seg Neuts % (Manual) Lymphocytes % (Manual) Eosinophils % (Manual) Seg Neutrophils # Lymphocytes # (Manual) Eosinophils # (Manual) PT INR D-Dimer POC ABG pH POC ABG pCO2 POC ABG pO2 ABG pO2 ABG HCO3 ABG Base Excess ABG Hemoglobin Oxyhemoglobin Sodium Potassium Chloride 94.8 L Carbon Dioxide 32 H BUN 53 H Creatinine 2.3 H Glucose POC Glucose 163 H 134 H Calcium Phosphorus Magnesium ALT Alkaline Phosphatase Total Creatine Kinase CK-MB (CK-2) Rel Index Troponin T Albumin LDL Cholesterol Direct PTH Intact Salicylates Acetaminophen Crossmatch 03/24/19 03/25/19 03/25/19 23:15 05:52 12:02 WBC RBC Hgb Hct MCV MCH MCHC RDW Lymph % (Auto) [place] % (Auto) Eos % (Auto) Lymph # [place] # Eos # Seg Neutrophils % Seg Neuts % (Manual) Lymphocytes % (Manual) Eosinophils % (Manual) Seg Neutrophils # Lymphocytes # (Manual) Eosinophils # (Manual) PT INR D-Dimer POC ABG pH POC ABG pCO2 POC ABG pO2 ABG pO2 ABG HCO3 ABG Base Excess ABG Hemoglobin Oxyhemoglobin Sodium Potassium Chloride Carbon Dioxide BUN Creatinine Glucose POC Glucose 129 H 123 H 125 H Calcium Phosphorus Magnesium ALT Alkaline Phosphatase Total Creatine Kinase CK-MB (CK-2) Rel Index Troponin T Albumin LDL Cholesterol Direct PTH Intact Salicylates Acetaminophen Crossmatch 03/25/19 03/26/19 03/26/19 17:27 00:30 05:35 WBC RBC 3.01 L Hgb 8.1 L Hct 25.7 L MCV MCH 27 L MCHC RDW 19.2 H Lymph % (Auto) 11.4 L [place] % (Auto) Eos % (Auto) 8.0 H Lymph # 1.0 L [place] # Eos # 0.7 H Seg Neutrophils % 73.9 H Seg Neuts % (Manual) Lymphocytes % (Manual) Eosinophils % (Manual) Seg Neutrophils # Lymphocytes # (Manual) Eosinophils # (Manual) PT INR D-Dimer POC ABG pH POC ABG pCO2 POC ABG pO2 ABG pO2 ABG HCO3 ABG Base Excess ABG Hemoglobin Oxyhemoglobin Sodium Potassium Chloride Carbon Dioxide BUN Creatinine Glucose POC Glucose 130 H 129 H Calcium Phosphorus Magnesium ALT Alkaline Phosphatase Total Creatine Kinase CK-MB (CK-2) Rel Index Troponin T Albumin LDL Cholesterol Direct PTH Intact Salicylates Acetaminophen Crossmatch 03/26/19 03/26/19 03/26/19 05:35 05:45 12:16 WBC RBC Hgb Hct MCV MCH MCHC RDW Lymph % (Auto) [place] % (Auto) Eos % (Auto) Lymph # [place] # Eos # Seg Neutrophils % Seg Neuts % (Manual) Lymphocytes % (Manual) Eosinophils % (Manual) Seg Neutrophils # Lymphocytes # (Manual) Eosinophils # (Manual) PT INR D-Dimer POC ABG pH POC ABG pCO2 POC ABG pO2 ABG pO2 ABG HCO3 ABG Base Excess ABG Hemoglobin Oxyhemoglobin Sodium Potassium Chloride 94.9 L Carbon Dioxide 31 H BUN 44 H Creatinine 2.0 H Glucose POC Glucose 118 H 107 H Calcium Phosphorus Magnesium ALT Alkaline Phosphatase Total Creatine Kinase CK-MB (CK-2) Rel Index Troponin T Albumin LDL Cholesterol Direct PTH Intact Salicylates Acetaminophen Crossmatch 03/26/19 03/27/19 03/27/19 17:56 00:36 05:37 WBC RBC Hgb Hct MCV MCH MCHC RDW Lymph % (Auto) [place] % (Auto) Eos % (Auto) Lymph # [place] # Eos # Seg Neutrophils % Seg Neuts % (Manual) Lymphocytes % (Manual) Eosinophils % (Manual) Seg Neutrophils # Lymphocytes # (Manual) Eosinophils # (Manual) PT INR D-Dimer POC ABG pH POC ABG pCO2 POC ABG pO2 ABG pO2 ABG HCO3 ABG Base Excess ABG Hemoglobin Oxyhemoglobin Sodium Potassium Chloride Carbon Dioxide BUN Creatinine Glucose POC Glucose 107 H 110 H 122 H Calcium Phosphorus Magnesium ALT Alkaline Phosphatase Total Creatine Kinase CK-MB (CK-2) Rel Index Troponin T Albumin LDL Cholesterol Direct PTH Intact Salicylates Acetaminophen Crossmatch 03/27/19 03/27/19 03/28/19 11:22 18:00 05:17 WBC RBC Hgb Hct MCV MCH MCHC RDW Lymph % (Auto) [place] % (Auto) Eos % (Auto) Lymph # [place] # Eos # Seg Neutrophils % Seg Neuts % (Manual) Lymphocytes % (Manual) Eosinophils % (Manual) Seg Neutrophils # Lymphocytes # (Manual) Eosinophils # (Manual) PT INR D-Dimer POC ABG pH POC ABG pCO2 POC ABG pO2 ABG pO2 ABG HCO3 ABG Base Excess ABG Hemoglobin Oxyhemoglobin Sodium Potassium Chloride Carbon Dioxide BUN Creatinine Glucose POC Glucose 120 H 111 H 107 H Calcium Phosphorus Magnesium ALT Alkaline Phosphatase Total Creatine Kinase CK-MB (CK-2) Rel Index Troponin T Albumin LDL Cholesterol Direct PTH Intact Salicylates Acetaminophen Crossmatch 03/28/19 03/28/19 03/29/19 12:27 18:08 05:47 WBC RBC Hgb Hct MCV MCH MCHC RDW Lymph % (Auto) [place] % (Auto) Eos % (Auto) Lymph # [place] # Eos # Seg Neutrophils % Seg Neuts % (Manual) Lymphocytes % (Manual) Eosinophils % (Manual) Seg Neutrophils # Lymphocytes # (Manual) Eosinophils # (Manual) PT INR D-Dimer POC ABG pH POC ABG pCO2 POC ABG pO2 ABG pO2 ABG HCO3 ABG Base Excess ABG Hemoglobin Oxyhemoglobin Sodium Potassium Chloride Carbon Dioxide BUN Creatinine Glucose POC Glucose 114 H 121 H 112 H Calcium Phosphorus Magnesium ALT Alkaline Phosphatase Total Creatine Kinase CK-MB (CK-2) Rel Index Troponin T Albumin LDL Cholesterol Direct PTH Intact Salicylates Acetaminophen Crossmatch 03/29/19 03/29/19 03/30/19 12:14 18:08 00:31 WBC RBC Hgb Hct MCV MCH MCHC RDW Lymph % (Auto) [place] % (Auto) Eos % (Auto) Lymph # [place] # Eos # Seg Neutrophils % Seg Neuts % (Manual) Lymphocytes % (Manual) Eosinophils % (Manual) Seg Neutrophils # Lymphocytes # (Manual) Eosinophils # (Manual) PT INR D-Dimer POC ABG pH POC ABG pCO2 POC ABG pO2 ABG pO2 ABG HCO3 ABG Base Excess ABG Hemoglobin Oxyhemoglobin Sodium Potassium Chloride Carbon Dioxide BUN Creatinine Glucose POC Glucose 117 H 140 H 114 H Calcium Phosphorus Magnesium ALT Alkaline Phosphatase Total Creatine Kinase CK-MB (CK-2) Rel Index Troponin T Albumin LDL Cholesterol Direct PTH Intact Salicylates Acetaminophen Crossmatch 03/30/19 03/30/19 03/30/19 10:13 10:13 23:53 WBC RBC 2.81 L Hgb 7.7 L Hct 24.3 L MCV MCH 27 L MCHC RDW 19.0 H Lymph % (Auto) 12.2 L [place] % (Auto) Eos % (Auto) 7.9 H Lymph # 1.0 L [place] # Eos # 0.6 H Seg Neutrophils % 72.3 H Seg Neuts % (Manual) Lymphocytes % (Manual) Eosinophils % (Manual) Seg Neutrophils # Lymphocytes # (Manual) Eosinophils # (Manual) PT INR D-Dimer POC ABG pH POC ABG pCO2 POC ABG pO2 ABG pO2 ABG HCO3 ABG Base Excess ABG Hemoglobin Oxyhemoglobin Sodium Potassium 5.1 H Chloride 96.5 L Carbon Dioxide BUN 73 H Creatinine 3.9 H D Glucose POC Glucose 114 H Calcium 10.3 H Phosphorus 6.30 H Magnesium 2.70 H ALT Alkaline Phosphatase 185 H Total Creatine Kinase CK-MB (CK-2) Rel Index Troponin T Albumin 2.6 L LDL Cholesterol Direct PTH Intact Salicylates Acetaminophen Crossmatch 03/31/19 03/31/19 03/31/19 05:45 10:26 10:26 WBC RBC 3.01 L Hgb 8.2 L Hct 26.4 L MCV MCH 27 L MCHC 31 L RDW 20.3 H Lymph % (Auto) 13.3 L Hudson % (Auto) Eos % (Auto) 7.2 H Lymph # 1.1 L Hudson # Eos # 0.6 H Seg Neutrophils % 72.1 H Seg Neuts % (Manual) Lymphocytes % (Manual) Eosinophils % (Manual) Seg Neutrophils # Lymphocytes # (Manual) Eosinophils # (Manual) PT INR D-Dimer POC ABG pH POC ABG pCO2 POC ABG pO2 ABG pO2 ABG HCO3 ABG Base Excess ABG Hemoglobin Oxyhemoglobin Sodium Potassium Chloride 96.9 L Carbon Dioxide 33 H BUN 37 H Creatinine 2.4 H Glucose POC Glucose 108 H Calcium 10.3 H Phosphorus Magnesium ALT Alkaline Phosphatase Total Creatine Kinase CK-MB (CK-2) Rel Index Troponin T Albumin LDL Cholesterol Direct PTH Intact Salicylates Acetaminophen Crossmatch 03/31/19 04/01/19 04/01/19 12:38 05:48 12:06 WBC RBC Hgb Hct MCV MCH MCHC RDW Lymph % (Auto) [place] % (Auto) Eos % (Auto) Lymph # [place] # Eos # Seg Neutrophils % Seg Neuts % (Manual) Lymphocytes % (Manual) Eosinophils % (Manual) Seg Neutrophils # Lymphocytes # (Manual) Eosinophils # (Manual) PT INR D-Dimer POC ABG pH POC ABG pCO2 POC ABG pO2 ABG pO2 ABG HCO3 ABG Base Excess ABG Hemoglobin Oxyhemoglobin Sodium Potassium Chloride Carbon Dioxide BUN Creatinine Glucose POC Glucose 108 H 114 H 111 H Calcium Phosphorus Magnesium ALT Alkaline Phosphatase Total Creatine Kinase CK-MB (CK-2) Rel Index Troponin T Albumin LDL Cholesterol Direct PTH Intact Salicylates Acetaminophen Crossmatch 04/01/19 04/02/19 04/04/19 18:24 00:36 23:55 WBC RBC Hgb Hct MCV MCH MCHC RDW Lymph % (Auto) [place] % (Auto) Eos % (Auto) Lymph # [place] # Eos # Seg Neutrophils % Seg Neuts % (Manual) Lymphocytes % (Manual) Eosinophils % (Manual) Seg Neutrophils # Lymphocytes # (Manual) Eosinophils # (Manual) PT INR D-Dimer POC ABG pH POC ABG pCO2 POC ABG pO2 ABG pO2 ABG HCO3 ABG Base Excess ABG Hemoglobin Oxyhemoglobin Sodium Potassium Chloride Carbon Dioxide BUN Creatinine Glucose POC Glucose 113 H 117 H 109 H Calcium Phosphorus Magnesium ALT Alkaline Phosphatase Total Creatine Kinase CK-MB (CK-2) Rel Index Troponin T Albumin LDL Cholesterol Direct PTH Intact Salicylates Acetaminophen Crossmatch 04/06/19 04/06/19 04/06/19 00:11 06:02 23:30 WBC RBC Hgb Hct MCV MCH MCHC RDW Lymph % (Auto) [place] % (Auto) Eos % (Auto) Lymph # [place] # Eos # Seg Neutrophils % Seg Neuts % (Manual) Lymphocytes % (Manual) Eosinophils % (Manual) Seg Neutrophils # Lymphocytes # (Manual) Eosinophils # (Manual) PT INR D-Dimer POC ABG pH POC ABG pCO2 POC ABG pO2 ABG pO2 ABG HCO3 ABG Base Excess ABG Hemoglobin Oxyhemoglobin Sodium Potassium Chloride Carbon Dioxide BUN Creatinine Glucose POC Glucose 116 H 112 H 112 H Calcium Phosphorus Magnesium ALT Alkaline Phosphatase Total Creatine Kinase CK-MB (CK-2) Rel Index Troponin T Albumin LDL Cholesterol Direct PTH Intact Salicylates Acetaminophen Crossmatch 04/08/19 04/08/19 04/08/19 02:23 06:19 13:01 WBC RBC Hgb Hct MCV MCH MCHC RDW Lymph % (Auto) [place] % (Auto) Eos % (Auto) Lymph # [place] # Eos # Seg Neutrophils % Seg Neuts % (Manual) Lymphocytes % (Manual) Eosinophils % (Manual) Seg Neutrophils # Lymphocytes # (Manual) Eosinophils # (Manual) PT INR D-Dimer POC ABG pH POC ABG pCO2 POC ABG pO2 ABG pO2 ABG HCO3 ABG Base Excess ABG Hemoglobin Oxyhemoglobin Sodium Potassium Chloride Carbon Dioxide BUN Creatinine Glucose POC Glucose 144 H 126 H 118 H Calcium Phosphorus Magnesium ALT Alkaline Phosphatase Total Creatine Kinase CK-MB (CK-2) Rel Index Troponin T Albumin LDL Cholesterol Direct PTH Intact Salicylates Acetaminophen Crossmatch 04/08/19 04/09/19 04/10/19 23:28 05:52 06:34 WBC RBC Hgb Hct MCV MCH MCHC RDW Lymph % (Auto) [place] % (Auto) Eos % (Auto) Lymph # [place] # Eos # Seg Neutrophils % Seg Neuts % (Manual) Lymphocytes % (Manual) Eosinophils % (Manual) Seg Neutrophils # Lymphocytes # (Manual) Eosinophils # (Manual) PT INR D-Dimer POC ABG pH POC ABG pCO2 POC ABG pO2 ABG pO2 ABG HCO3 ABG Base Excess ABG Hemoglobin Oxyhemoglobin Sodium Potassium Chloride Carbon Dioxide BUN Creatinine Glucose POC Glucose 119 H 116 H 114 H Calcium Phosphorus Magnesium ALT Alkaline Phosphatase Total Creatine Kinase CK-MB (CK-2) Rel Index Troponin T Albumin LDL Cholesterol Direct PTH Intact Salicylates Acetaminophen Crossmatch 04/10/19 04/10/19 04/11/19 12:34 18:59 00:36 WBC RBC Hgb Hct MCV MCH MCHC RDW Lymph % (Auto) [place] % (Auto) Eos % (Auto) Lymph # [place] # Eos # Seg Neutrophils % Seg Neuts % (Manual) Lymphocytes % (Manual) Eosinophils % (Manual) Seg Neutrophils # Lymphocytes # (Manual) Eosinophils # (Manual) PT INR D-Dimer POC ABG pH POC ABG pCO2 POC ABG pO2 ABG pO2 ABG HCO3 ABG Base Excess ABG Hemoglobin Oxyhemoglobin Sodium Potassium Chloride Carbon Dioxide BUN Creatinine Glucose POC Glucose 112 H 109 H 124 H Calcium Phosphorus Magnesium ALT Alkaline Phosphatase Total Creatine Kinase CK-MB (CK-2) Rel Index Troponin T Albumin LDL Cholesterol Direct PTH Intact Salicylates Acetaminophen Crossmatch 04/11/19 04/11/19 04/12/19 08:01 17:25 02:18 WBC RBC Hgb Hct MCV MCH MCHC RDW Lymph % (Auto) [place] % (Auto) Eos % (Auto) Lymph # [place] # Eos # Seg Neutrophils % Seg Neuts % (Manual) Lymphocytes % (Manual) Eosinophils % (Manual) Seg Neutrophils # Lymphocytes # (Manual) Eosinophils # (Manual) PT INR D-Dimer POC ABG pH POC ABG pCO2 POC ABG pO2 ABG pO2 ABG HCO3 ABG Base Excess ABG Hemoglobin Oxyhemoglobin Sodium Potassium Chloride Carbon Dioxide BUN Creatinine Glucose POC Glucose 118 H 106 H 125 H Calcium Phosphorus Magnesium ALT Alkaline Phosphatase Total Creatine Kinase CK-MB (CK-2) Rel Index Troponin T Albumin LDL Cholesterol Direct PTH Intact Salicylates Acetaminophen Crossmatch 04/12/19 04/12/19 04/12/19 06:24 12:22 17:13 WBC RBC Hgb Hct MCV MCH MCHC RDW Lymph % (Auto) [place] % (Auto) Eos % (Auto) Lymph # [place] # Eos # Seg Neutrophils % Seg Neuts % (Manual) Lymphocytes % (Manual) Eosinophils % (Manual) Seg Neutrophils # Lymphocytes # (Manual) Eosinophils # (Manual) PT INR D-Dimer POC ABG pH POC ABG pCO2 POC ABG pO2 ABG pO2 ABG HCO3 ABG Base Excess ABG Hemoglobin Oxyhemoglobin Sodium Potassium Chloride Carbon Dioxide BUN Creatinine Glucose POC Glucose 128 H 114 H 110 H Calcium Phosphorus Magnesium ALT Alkaline Phosphatase Total Creatine Kinase CK-MB (CK-2) Rel Index Troponin T Albumin LDL Cholesterol Direct PTH Intact Salicylates Acetaminophen Crossmatch 04/13/19 04/13/19 04/13/19 06:59 07:31 07:31 WBC RBC 3.34 L Hgb 8.9 L Hct 28.6 L MCV MCH 27 L MCHC 31 L RDW 19.6 H Lymph % (Auto) [place] % (Auto) Eos % (Auto) Lymph # [place] # Eos # Seg Neutrophils % Seg Neuts % (Manual) Lymphocytes % (Manual) Eosinophils % (Manual) Seg Neutrophils # Lymphocytes # (Manual) Eosinophils # (Manual) PT INR D-Dimer POC ABG pH POC ABG pCO2 POC ABG pO2 ABG pO2 ABG HCO3 ABG Base Excess ABG Hemoglobin Oxyhemoglobin Sodium Potassium Chloride 96.4 L Carbon Dioxide 33 H BUN 66 H Creatinine 4.5 H Glucose 103 H POC Glucose 107 H Calcium Phosphorus Magnesium ALT Alkaline Phosphatase Total Creatine Kinase CK-MB (CK-2) Rel Index Troponin T Albumin LDL Cholesterol Direct PTH Intact Salicylates Acetaminophen Crossmatch 04/13/19 04/14/19 04/14/19 23:43 05:50 13:07 WBC RBC Hgb Hct MCV MCH MCHC RDW Lymph % (Auto) [place] % (Auto) Eos % (Auto) Lymph # [place] # Eos # Seg Neutrophils % Seg Neuts % (Manual) Lymphocytes % (Manual) Eosinophils % (Manual) Seg Neutrophils # Lymphocytes # (Manual) Eosinophils # (Manual) PT INR D-Dimer POC ABG pH POC ABG pCO2 POC ABG pO2 ABG pO2 ABG HCO3 ABG Base Excess ABG Hemoglobin Oxyhemoglobin Sodium Potassium Chloride Carbon Dioxide BUN Creatinine Glucose POC Glucose 119 H 112 H 112 H Calcium Phosphorus Magnesium ALT Alkaline Phosphatase Total Creatine Kinase CK-MB (CK-2) Rel Index Troponin T Albumin LDL Cholesterol Direct PTH Intact Salicylates Acetaminophen Crossmatch 04/14/19 04/15/19 04/15/19 18:35 01:18 05:17 WBC RBC Hgb Hct MCV MCH MCHC RDW Lymph % (Auto) [place] % (Auto) Eos % (Auto) Lymph # [place] # Eos # Seg Neutrophils % Seg Neuts % (Manual) Lymphocytes % (Manual) Eosinophils % (Manual) Seg Neutrophils # Lymphocytes # (Manual) Eosinophils # (Manual) PT INR D-Dimer POC ABG pH POC ABG pCO2 POC ABG pO2 ABG pO2 ABG HCO3 ABG Base Excess ABG Hemoglobin Oxyhemoglobin Sodium Potassium Chloride Carbon Dioxide BUN Creatinine Glucose POC Glucose 114 H 114 H 114 H Calcium Phosphorus Magnesium ALT Alkaline Phosphatase Total Creatine Kinase CK-MB (CK-2) Rel Index Troponin T Albumin LDL Cholesterol Direct PTH Intact Salicylates Acetaminophen Crossmatch 04/15/19 04/15/19 04/16/19 11:50 23:39 05:41 WBC RBC Hgb Hct MCV MCH MCHC RDW Lymph % (Auto) [place] % (Auto) Eos % (Auto) Lymph # [place] # Eos # Seg Neutrophils % Seg Neuts % (Manual) Lymphocytes % (Manual) Eosinophils % (Manual) Seg Neutrophils # Lymphocytes # (Manual) Eosinophils # (Manual) PT INR D-Dimer POC ABG pH POC ABG pCO2 POC ABG pO2 ABG pO2 ABG HCO3 ABG Base Excess ABG Hemoglobin Oxyhemoglobin Sodium Potassium Chloride Carbon Dioxide BUN Creatinine Glucose POC Glucose 109 H 115 H 125 H Calcium Phosphorus Magnesium ALT Alkaline Phosphatase Total Creatine Kinase CK-MB (CK-2) Rel Index Troponin T Albumin LDL Cholesterol Direct PTH Intact Salicylates Acetaminophen Crossmatch 04/16/19 04/17/19 04/17/19 12:53 01:00 12:38 WBC RBC Hgb Hct MCV MCH MCHC RDW Lymph % (Auto) [place] % (Auto) Eos % (Auto) Lymph # [place] # Eos # Seg Neutrophils % Seg Neuts % (Manual) Lymphocytes % (Manual) Eosinophils % (Manual) Seg Neutrophils # Lymphocytes # (Manual) Eosinophils # (Manual) PT INR D-Dimer POC ABG pH POC ABG pCO2 POC ABG pO2 ABG pO2 ABG HCO3 ABG Base Excess ABG Hemoglobin Oxyhemoglobin Sodium Potassium Chloride Carbon Dioxide BUN Creatinine Glucose POC Glucose 121 H 127 H 159 H Calcium Phosphorus Magnesium ALT Alkaline Phosphatase Total Creatine Kinase CK-MB (CK-2) Rel Index Troponin T Albumin LDL Cholesterol Direct PTH Intact Salicylates Acetaminophen Crossmatch 04/17/19 04/17/19 04/18/19 18:27 23:36 07:19 WBC RBC 3.49 L Hgb 9.0 L Hct 29.9 L MCV MCH 26 L MCHC 30 L RDW 20.0 H Lymph % (Auto) [place] % (Auto) Eos % (Auto) Lymph # [place] # Eos # Seg Neutrophils % Seg Neuts % (Manual) Lymphocytes % (Manual) Eosinophils % (Manual) Seg Neutrophils # Lymphocytes # (Manual) Eosinophils # (Manual) PT INR D-Dimer POC ABG pH POC ABG pCO2 POC ABG pO2 ABG pO2 ABG HCO3 ABG Base Excess ABG Hemoglobin Oxyhemoglobin Sodium Potassium Chloride Carbon Dioxide BUN Creatinine Glucose POC Glucose 109 H 134 H Calcium Phosphorus Magnesium ALT Alkaline Phosphatase Total Creatine Kinase CK-MB (CK-2) Rel Index Troponin T Albumin LDL Cholesterol Direct PTH Intact Salicylates Acetaminophen Crossmatch 04/18/19 04/18/19 04/18/19 07:19 12:16 17:09 WBC RBC Hgb Hct MCV MCH MCHC RDW Lymph % (Auto) [place] % (Auto) Eos % (Auto) Lymph # [place] # Eos # Seg Neutrophils % Seg Neuts % (Manual) Lymphocytes % (Manual) Eosinophils % (Manual) Seg Neutrophils # Lymphocytes # (Manual) Eosinophils # (Manual) PT INR D-Dimer POC ABG pH POC ABG pCO2 POC ABG pO2 ABG pO2 ABG HCO3 ABG Base Excess ABG Hemoglobin Oxyhemoglobin Sodium Potassium Chloride Carbon Dioxide BUN 41 H Creatinine 2.9 H Glucose 122 H POC Glucose 125 H 131 H Calcium Phosphorus Magnesium ALT Alkaline Phosphatase Total Creatine Kinase CK-MB (CK-2) Rel Index Troponin T Albumin LDL Cholesterol Direct PTH Intact Salicylates Acetaminophen Crossmatch 04/18/19 04/19/19 04/19/19 23:57 05:55 11:35 WBC RBC Hgb Hct MCV MCH MCHC RDW Lymph % (Auto) [place] % (Auto) Eos % (Auto) Lymph # [place] # Eos # Seg Neutrophils % Seg Neuts % (Manual) Lymphocytes % (Manual) Eosinophils % (Manual) Seg Neutrophils # Lymphocytes # (Manual) Eosinophils # (Manual) PT INR D-Dimer POC ABG pH POC ABG pCO2 POC ABG pO2 ABG pO2 ABG HCO3 ABG Base Excess ABG Hemoglobin Oxyhemoglobin Sodium Potassium Chloride Carbon Dioxide BUN Creatinine Glucose POC Glucose 159 H 144 H 177 H Calcium Phosphorus Magnesium ALT Alkaline Phosphatase Total Creatine Kinase CK-MB (CK-2) Rel Index Troponin T Albumin LDL Cholesterol Direct PTH Intact Salicylates Acetaminophen Crossmatch 04/19/19 04/20/19 04/20/19 16:36 02:05 06:28 WBC RBC Hgb Hct MCV MCH MCHC RDW Lymph % (Auto) [place] % (Auto) Eos % (Auto) Lymph # [place] # Eos # Seg Neutrophils % Seg Neuts % (Manual) Lymphocytes % (Manual) Eosinophils % (Manual) Seg Neutrophils # Lymphocytes # (Manual) Eosinophils # (Manual) PT INR D-Dimer POC ABG pH POC ABG pCO2 POC ABG pO2 ABG pO2 ABG HCO3 ABG Base Excess ABG Hemoglobin Oxyhemoglobin Sodium Potassium Chloride Carbon Dioxide BUN Creatinine Glucose POC Glucose 134 H 142 H 132 H Calcium Phosphorus Magnesium ALT Alkaline Phosphatase Total Creatine Kinase CK-MB (CK-2) Rel Index Troponin T Albumin LDL Cholesterol Direct PTH Intact Salicylates Acetaminophen Crossmatch 04/20/19 04/20/19 04/21/19 12:37 23:34 05:59 WBC RBC Hgb Hct MCV MCH MCHC RDW Lymph % (Auto) [place] % (Auto) Eos % (Auto) Lymph # [place] # Eos # Seg Neutrophils % Seg Neuts % (Manual) Lymphocytes % (Manual) Eosinophils % (Manual) Seg Neutrophils # Lymphocytes # (Manual) Eosinophils # (Manual) PT INR D-Dimer POC ABG pH POC ABG pCO2 POC ABG pO2 ABG pO2 ABG HCO3 ABG Base Excess ABG Hemoglobin Oxyhemoglobin Sodium Potassium Chloride Carbon Dioxide BUN Creatinine Glucose POC Glucose 163 H 166 H 140 H Calcium Phosphorus Magnesium ALT Alkaline Phosphatase Total Creatine Kinase CK-MB (CK-2) Rel Index Troponin T Albumin LDL Cholesterol Direct PTH Intact Salicylates Acetaminophen Crossmatch 04/21/19 04/21/19 04/21/19 12:07 17:22 23:43 WBC RBC Hgb Hct MCV MCH MCHC RDW Lymph % (Auto) [place] % (Auto) Eos % (Auto) Lymph # [place] # Eos # Seg Neutrophils % Seg Neuts % (Manual) Lymphocytes % (Manual) Eosinophils % (Manual) Seg Neutrophils # Lymphocytes # (Manual) Eosinophils # (Manual) PT INR D-Dimer POC ABG pH POC ABG pCO2 POC ABG pO2 ABG pO2 ABG HCO3 ABG Base Excess ABG Hemoglobin Oxyhemoglobin Sodium Potassium Chloride Carbon Dioxide BUN Creatinine Glucose POC Glucose 135 H 141 H 138 H Calcium Phosphorus Magnesium ALT Alkaline Phosphatase Total Creatine Kinase CK-MB (CK-2) Rel Index Troponin T Albumin LDL Cholesterol Direct PTH Intact Salicylates Acetaminophen Crossmatch 04/22/19 04/22/19 04/22/19 05:12 18:24 23:49 WBC RBC Hgb Hct MCV MCH MCHC RDW Lymph % (Auto) [place] % (Auto) Eos % (Auto) Lymph # [place] # Eos # Seg Neutrophils % Seg Neuts % (Manual) Lymphocytes % (Manual) Eosinophils % (Manual) Seg Neutrophils # Lymphocytes # (Manual) Eosinophils # (Manual) PT INR D-Dimer POC ABG pH POC ABG pCO2 POC ABG pO2 ABG pO2 ABG HCO3 ABG Base Excess ABG Hemoglobin Oxyhemoglobin Sodium Potassium Chloride Carbon Dioxide BUN Creatinine Glucose POC Glucose 141 H 137 H 142 H Calcium Phosphorus Magnesium ALT Alkaline Phosphatase Total Creatine Kinase CK-MB (CK-2) Rel Index Troponin T Albumin LDL Cholesterol Direct PTH Intact Salicylates Acetaminophen Crossmatch 04/23/19 04/23/19 04/23/19 05:53 08:13 11:58 WBC RBC Hgb Hct MCV MCH MCHC RDW Lymph % (Auto) [place] % (Auto) Eos % (Auto) Lymph # [place] # Eos # Seg Neutrophils % Seg Neuts % (Manual) Lymphocytes % (Manual) Eosinophils % (Manual) Seg Neutrophils # Lymphocytes # (Manual) Eosinophils # (Manual) PT INR D-Dimer POC ABG pH POC ABG pCO2 POC ABG pO2 ABG pO2 ABG HCO3 ABG Base Excess ABG Hemoglobin Oxyhemoglobin Sodium Potassium Chloride Carbon Dioxide BUN Creatinine Glucose POC Glucose 132 H 154 H 165 H Calcium Phosphorus Magnesium ALT Alkaline Phosphatase Total Creatine Kinase CK-MB (CK-2) Rel Index Troponin T Albumin LDL Cholesterol Direct PTH Intact Salicylates Acetaminophen Crossmatch 04/23/19 04/24/19 04/24/19 16:28 00:28 07:00 WBC RBC Hgb Hct MCV MCH MCHC RDW Lymph % (Auto) [place] % (Auto) Eos % (Auto) Lymph # [place] # Eos # Seg Neutrophils % Seg Neuts % (Manual) Lymphocytes % (Manual) Eosinophils % (Manual) Seg Neutrophils # Lymphocytes # (Manual) Eosinophils # (Manual) PT INR D-Dimer POC ABG pH POC ABG pCO2 POC ABG pO2 ABG pO2 ABG HCO3 ABG Base Excess ABG Hemoglobin Oxyhemoglobin Sodium Potassium Chloride Carbon Dioxide BUN Creatinine Glucose POC Glucose 136 H 140 H 141 H Calcium Phosphorus Magnesium ALT Alkaline Phosphatase Total Creatine Kinase CK-MB (CK-2) Rel Index Troponin T Albumin LDL Cholesterol Direct PTH Intact Salicylates Acetaminophen Crossmatch 04/24/19 04/24/19 04/25/19 12:38 18:57 00:38 WBC RBC Hgb Hct MCV MCH MCHC RDW Lymph % (Auto) [place] % (Auto) Eos % (Auto) Lymph # [place] # Eos # Seg Neutrophils % Seg Neuts % (Manual) Lymphocytes % (Manual) Eosinophils % (Manual) Seg Neutrophils # Lymphocytes # (Manual) Eosinophils # (Manual) PT INR D-Dimer POC ABG pH POC ABG pCO2 POC ABG pO2 ABG pO2 ABG HCO3 ABG Base Excess ABG Hemoglobin Oxyhemoglobin Sodium Potassium Chloride Carbon Dioxide BUN Creatinine Glucose POC Glucose 152 H 166 H 128 H Calcium Phosphorus Magnesium ALT Alkaline Phosphatase Total Creatine Kinase CK-MB (CK-2) Rel Index Troponin T Albumin LDL Cholesterol Direct PTH Intact Salicylates Acetaminophen Crossmatch 04/25/19 04/25/19 04/25/19 05:44 13:43 18:34 WBC RBC Hgb Hct MCV MCH MCHC RDW Lymph % (Auto) [place] % (Auto) Eos % (Auto) Lymph # [place] # Eos # Seg Neutrophils % Seg Neuts % (Manual) Lymphocytes % (Manual) Eosinophils % (Manual) Seg Neutrophils # Lymphocytes # (Manual) Eosinophils # (Manual) PT INR D-Dimer POC ABG pH POC ABG pCO2 POC ABG pO2 ABG pO2 ABG HCO3 ABG Base Excess ABG Hemoglobin Oxyhemoglobin Sodium Potassium Chloride Carbon Dioxide BUN Creatinine Glucose POC Glucose 153 H 186 H 124 H Calcium Phosphorus Magnesium ALT Alkaline Phosphatase Total Creatine Kinase CK-MB (CK-2) Rel Index Troponin T Albumin LDL Cholesterol Direct PTH Intact Salicylates Acetaminophen Crossmatch 04/26/19 04/26/19 04/26/19 00:59 05:52 10:12 WBC 11.5 H RBC 2.84 L Hgb 7.4 L Hct 23.3 L MCV 82 L MCH 26 L MCHC RDW 20.3 H Lymph % (Auto) 7.5 L [place] % (Auto) 7.5 H Eos % (Auto) 5.3 H Lymph # 0.9 L [place] # 0.9 H Eos # 0.6 H Seg Neutrophils % 79.2 H Seg Neuts % (Manual) Lymphocytes % (Manual) Eosinophils % (Manual) Seg Neutrophils # 9.1 H Lymphocytes # (Manual) Eosinophils # (Manual) PT INR D-Dimer POC ABG pH POC ABG pCO2 POC ABG pO2 ABG pO2 ABG HCO3 ABG Base Excess ABG Hemoglobin Oxyhemoglobin Sodium Potassium Chloride Carbon Dioxide BUN Creatinine Glucose POC Glucose 163 H 146 H Calcium Phosphorus Magnesium ALT Alkaline Phosphatase Total Creatine Kinase CK-MB (CK-2) Rel Index Troponin T Albumin LDL Cholesterol Direct PTH Intact Salicylates Acetaminophen Crossmatch 04/26/19 04/26/19 04/26/19 10:12 12:15 19:00 WBC RBC Hgb Hct MCV MCH MCHC RDW Lymph % (Auto) [place] % (Auto) Eos % (Auto) Lymph # [place] # Eos # Seg Neutrophils % Seg Neuts % (Manual) Lymphocytes % (Manual) Eosinophils % (Manual) Seg Neutrophils # Lymphocytes # (Manual) Eosinophils # (Manual) PT INR D-Dimer POC ABG pH POC ABG pCO2 POC ABG pO2 ABG pO2 ABG HCO3 ABG Base Excess ABG Hemoglobin Oxyhemoglobin Sodium 130 L Potassium Chloride 87.4 L Carbon Dioxide BUN 93 H Creatinine 4.2 H Glucose 140 H POC Glucose 155 H 179 H Calcium Phosphorus Magnesium ALT Alkaline Phosphatase Total Creatine Kinase CK-MB (CK-2) Rel Index Troponin T Albumin LDL Cholesterol Direct PTH Intact Salicylates Acetaminophen Crossmatch 04/27/19 04/27/19 04/27/19 00:23 06:34 17:13 WBC RBC Hgb Hct MCV MCH MCHC RDW Lymph % (Auto) [place] % (Auto) Eos % (Auto) Lymph # [place] # Eos # Seg Neutrophils % Seg Neuts % (Manual) Lymphocytes % (Manual) Eosinophils % (Manual) Seg Neutrophils # Lymphocytes # (Manual) Eosinophils # (Manual) PT INR D-Dimer POC ABG pH POC ABG pCO2 POC ABG pO2 ABG pO2 ABG HCO3 ABG Base Excess ABG Hemoglobin Oxyhemoglobin Sodium Potassium Chloride Carbon Dioxide BUN Creatinine Glucose POC Glucose 158 H 140 H 152 H Calcium Phosphorus Magnesium ALT Alkaline Phosphatase Total Creatine Kinase CK-MB (CK-2) Rel Index Troponin T Albumin LDL Cholesterol Direct PTH Intact Salicylates Acetaminophen Crossmatch 04/27/19 04/28/19 04/28/19 23:50 05:18 11:37 WBC RBC Hgb Hct MCV MCH MCHC RDW Lymph % (Auto) [place] % (Auto) Eos % (Auto) Lymph # [place] # Eos # Seg Neutrophils % Seg Neuts % (Manual) Lymphocytes % (Manual) Eosinophils % (Manual) Seg Neutrophils # Lymphocytes # (Manual) Eosinophils # (Manual) PT INR D-Dimer POC ABG pH POC ABG pCO2 POC ABG pO2 ABG pO2 ABG HCO3 ABG Base Excess ABG Hemoglobin Oxyhemoglobin Sodium Potassium Chloride Carbon Dioxide BUN Creatinine Glucose POC Glucose 160 H 145 H 177 H Calcium Phosphorus Magnesium ALT Alkaline Phosphatase Total Creatine Kinase CK-MB (CK-2) Rel Index Troponin T Albumin LDL Cholesterol Direct PTH Intact Salicylates Acetaminophen Crossmatch 04/28/19 04/28/19 04/29/19 18:31 23:47 05:50 WBC RBC Hgb Hct MCV MCH MCHC RDW Lymph % (Auto) [place] % (Auto) Eos % (Auto) Lymph # [place] # Eos # Seg Neutrophils % Seg Neuts % (Manual) Lymphocytes % (Manual) Eosinophils % (Manual) Seg Neutrophils # Lymphocytes # (Manual) Eosinophils # (Manual) PT INR D-Dimer POC ABG pH POC ABG pCO2 POC ABG pO2 ABG pO2 ABG HCO3 ABG Base Excess ABG Hemoglobin Oxyhemoglobin Sodium Potassium Chloride Carbon Dioxide BUN Creatinine Glucose POC Glucose 153 H 117 H 177 H Calcium Phosphorus Magnesium ALT Alkaline Phosphatase Total Creatine Kinase CK-MB (CK-2) Rel Index Troponin T Albumin LDL Cholesterol Direct PTH Intact Salicylates Acetaminophen Crossmatch
[2019-04-29] MEDS: EPOETIN ALFA 20,000 UNIT/1 ML INJ IV PRN (13:17)
[2019-04-29] MEDS: SERTRALINE 100 MG TAB PO SCH (14:44)
[2019-04-29] MEDS: FAMOTIDINE 20 MG TAB PO SCH (14:44)
[2019-04-29] MEDS: risperiDONE 1 MG TAB PO SCH (14:44)
[2019-04-30] MEDS: INSULIN REGULAR, HUMAN 100 UNITS/1 ML SUB-Q SCH ×4 (01:03→20:12)
[2019-04-30] MEDS: SODIUM HYPOCHLORITE, DAKIN'S 1/2 STRENGTH (0.25%) 473 ML TOPICAL SOLN TP SCH ×3 (05:10→23:50)
[2019-04-30] MEDS: IPRATROPIUM/ALBUTEROL SULFATE 3 ML AMPUL.NEB IH SCH ×3 (08:03→19:43)
[2019-04-30] MEDS: FAMOTIDINE 20 MG TAB PO SCH (09:48)
[2019-04-30] MEDS: SERTRALINE 100 MG TAB PO SCH (09:48)
[2019-04-30] MEDS: risperiDONE 1 MG TAB PO SCH (09:48)
--- NOTE | 2019-04-30 10:16 | Progress Note ---
Assessment and Plan Assessment: * End stage renal disease (outpatient TTS schedule) * Acute hypoxic respiratory failure on mechanical ventilation * Atrial fibrillation * History of CVA * Anemia secondary to ESRD * Secondary hyperparathyroidism Plan * Continue HD MWF schedule for now while inpatient * UF as tolerated; reviewed pulmonary notes and CXR * AVG in use. A * Empiric abx per ID/primary team * Nutrition per primary team * Dose medications for renal function * Epogen TID Overall prognosis remains poor; will continue to follow for ESRD needs while inpatient. Subjective Date of service: 04/30/19 Principal diagnosis: Respiratory failure, acute on chronic systolic HF, ESRD Interval history: no acute events Objective - Exam Narrative Exam: General appearance: chronically ill, intubated, frail EENT: normocephalic Neck: ETT in place Respiratory: coarse mechanical breath sounds bilaterally Cardiology: regular, S1S2, no edema Gastrointestinal: PEG and colostomy noted Integumentary: warm and dry Psychiatric: unable to assess - Vital Signs Vital signs: Vital Signs - 12hr 04/29/19 04/30/19 04/30/19 23:29 03:50 07:41 Temperature 98.0 F 98.0 F 98.1 F Pulse Rate 111 H 93 H 102 H Pulse Rate [ Posterior Bilateral Throughout] Respiratory 18 18 18 Rate Respiratory Rate [Posterior Bilateral Throughout] Blood Pressure 119/68 115/57 117/62 O2 Sat by Pulse 91 97 99 Oximetry O2 Sat by Pulse Oximetry [ Assessment] 04/30/19 04/30/19 08:00 08:04 Temperature Pulse Rate Pulse Rate [ 89 Posterior Bilateral Throughout] Respiratory Rate Respiratory 18 Rate [Posterior Bilateral Throughout] Blood Pressure O2 Sat by Pulse 96 Oximetry O2 Sat by Pulse 96 Oximetry [ Assessment] - Lab 04/26/19 10:12 04/26/19 10:12 Most recent lab results ABG pH 7.424 pH Units (7.350-7.450) 03/19/19 04:23 ABG pCO2 48.0 mm Hg 03/19/19 04:23 ABG pO2 78.3 mm Hg (80.0-90.0) L 03/19/19 04:23 ABG HCO3 30.7 mmol/L (20.0-26.0) H 03/19/19 04:23 ABG O2 Saturation 97.0 % (95.0-99.0) 03/19/19 04:23 Calcium 10.0 mg/dL (8.4-10.2) 04/26/19 10:12 Phosphorus 4.30 mg/dL (2.5-4.5) D 03/31/19 10:26 Magnesium 2.70 mg/dL (1.7-2.3) H 03/30/19 10:13 Medications & Allergies - Medications Allergies/Adverse Reactions: Allergies haloperidol [From Haldol] Adverse Reaction (Verified 03/13/18 12:10) Unknown haloperidol lactate [From Haldol] Adverse Reaction (Verified 03/13/18 12:10) Unknown Home Medications: Home Medications Medication Instructions Recorded Confirmed Last Taken Type risperiDONE [RisperDAL] 1 mg PO QAM 03/13/18 02/21/19 Unknown History Sertraline [Zoloft] 100 mg PO QDAY 08/26/18 02/21/19 Unknown History Polyethylene Glycol 3350 [Miralax 17 gm PO QDAY #30 packet 11/05/18 02/21/19 Unknown Rx 3350] Aspirin EC [Halfprin EC] 81 mg PO DAILY #30 11/19/18 02/21/19 Unknown Rx Docusate Sodium [Colace CAP] 100 mg PO BID #60 11/19/18 02/21/19 Unknown Rx Folic Acid [Folvite] 1 mg PO DAILY #30 tab 11/19/18 02/21/19 Unknown Rx Famotidine [Pepcid] 20 mg PO DAILY tablet 12/08/18 02/21/19 Unknown Rx Gabapentin [Neurontin] 100 mg PO QHS capsule 12/08/18 02/21/19 Unknown Rx Metoprolol [Lopressor TAB] 50 mg PO BID 30 Days tablet 12/08/18 02/21/19 Unknown Rx Sevelamer Carbonate [Renvela] 800 mg PO TIDWM tablet 12/08/18 02/21/19 Unknown Rx hydrALAZINE [Apresoline TAB] 100 mg PO Q8HR #120 tablet 12/08/18 02/21/19 Unknown Rx Acetaminophen [Acetaminophen TAB] 650 mg PO Q12H PRN 12/15/18 02/21/19 Unknown History Glucagon,Human Recombinant 1 mg IJ Q15MIN PRN 12/15/18 02/21/19 Unknown History [Glucagon Emergency Kit] Insulin Aspart [NovoLOG 100 See Protocol SQ QWEEK 12/15/18 02/21/19 Unknown History UNITS/ML VIAL] Active Medications: Generic Name Dose Route Start Last Admin Trade Name Freq PRN Reason Stop Dose Admin Albuterol/Ipratropium 1 ampul 02/24/19 20:00 04/30/19 08:03 Duoneb *Not For Prn Use* IH 1 ampul TIDRT SANCHEZ Administration Lipase/Protease/Amylase 1 each 04/10/19 15:[address] 10,500 Unit FEEDTUBE PRN PRN For Clogged Feeding Tube Epoetin Solitario 20,000 unit 03/24/19 11:17 04/29/19 13:17 Procrit IV 20,000 unit UMA PRN Administration hemodialysis Famotidine 20 mg 02/23/19 10:00 04/30/19 09:48 Pepcid PO 20 mg DAILY SANCHEZ Administration Insulin Human Regular 0 units 02/26/19 12:00 04/30/19 01:03 Humulin R SUB-Q Not Given Q6HR [facility] Protocol Metoprolol Tartrate 2.5 mg 02/28/19 12:06 03/15/19 05:15 Lopressor IV 2.5 mg Q4HR PRN Administration Tachycardia Risperidone 1 mg 02/25/19 13:00 04/30/19 09:48 Risperdal PO 1 mg DAILY SANCHEZ Administration Sertraline HCl 100 mg 02/25/19 13:00 04/30/19 09:48 Zoloft PO 100 mg DAILY SANCHEZ Administration Simple Syrup 15 ml 04/10/19 15:16 Simple Syrup FEEDTUBE PRN PRN Hypoglycemia Simple Syrup 30 ml 04/10/19 15:16 Simple Syrup FEEDTUBE PRN PRN Hypoglycemia Sodium Bicarbonate 325 mg 04/10/19 15:16 Sodium Bicarbonate FEEDTUBE PRN PRN For Clogged Feeding Tube Sodium Hypochlorite 1 applic 04/01/19 13:00 04/30/19 09:49 Dakin's Half Strength TP 1 applicatio BID SANCHEZ Administration
--- NOTE | 2019-04-30 10:22 | Progress Note ---
Assessment and Plan 63 y/o male with multiple medical issues admitted with altered mental status, acute respiratory failure requiring mechanical ventilation 1. Daily PMV trials. Hopefully will lead to capping and nasal cannula at some point. then could consider decannulation. Will ask RT to keep patient on trach collar so that it is easier for speech to trial him. 2. HD per renal 3. PT/OT if possible 4. CM working on placement Subjective Date of service: 04/30/19 Principal diagnosis: Respiratory failure, acute on chronic systolic HF, ESRD Interval history: No acute events. Nods when asked questions. No family at bedside. Currently on T-piece. Objective Vital Signs - 12hr 04/29/19 04/30/19 04/30/19 23:29 03:50 07:41 Temperature 98.0 F 98.0 F 98.1 F Pulse Rate 111 H 93 H 102 H Pulse Rate [ Posterior Bilateral Throughout] Respiratory 18 18 18 Rate Respiratory Rate [Posterior Bilateral Throughout] Blood Pressure 119/68 115/57 117/62 O2 Sat by Pulse 91 97 99 Oximetry O2 Sat by Pulse Oximetry [ Assessment] 04/30/19 04/30/19 08:00 08:04 Temperature Pulse Rate Pulse Rate [ 89 Posterior Bilateral Throughout] Respiratory Rate Respiratory 18 Rate [Posterior Bilateral Throughout] Blood Pressure O2 Sat by Pulse 96 Oximetry O2 Sat by Pulse 96 Oximetry [ Assessment] Constitutional: no acute distress, alert Eyes: non-icteric ENT: oropharynx moist Neck: supple Effort: normal Ascultation: Bilateral: diminished breath sounds, other (coarse BS bilaterally) Percussion: Bilateral: not dull Cardiovascular: regular rate and rhythm (no mrg) Gastrointestinal: normoactive bowel sounds, soft, non-tender, non-distended, o ther (ostomy in place, brown stool) Extremities: no cyanosis, no edema, pink and warm Neurologic: other (mild weakness LUE, o/w nonfocal) Psychiatric: other (unable to assess) CBC and BMP: 04/26/19 10:12 04/26/19 10:12 ABG, PT/INR, D-dimer: ABG POC ABG pH 7.510 (7.35-7.45) H 03/18/19 06:38 ABG pH 7.424 pH Units (7.350-7.450) 03/19/19 04:23 POC ABG pCO2 38.9 (35-45) 03/18/19 06:38 ABG pCO2 48.0 mm Hg 03/19/19 04:23 POC ABG pO2 164 (80-105) H 03/18/19 06:38 ABG pO2 78.3 mm Hg (80.0-90.0) L 03/19/19 04:23 POC ABG HCO3 31.0 (22-26 mml/L) 03/18/19 06:38 POC ABG Total CO2 32 (23-27mmol/L) 03/18/19 06:38 POC ABG O2 Sat 100 03/18/19 06:38 ABG O2 Saturation 97.0 % (95.0-99.0) 03/19/19 04:23 PT/INR, D-dimer PT 16.3 Sec. (12.2-14.9) H 03/01/19 09:39 INR 1.35 (0.87-1.13) H 03/01/19 09:39 D-Dimer 2987.82 ng/mlDDU (0-234) H 02/22/19 05:54 Abnormal lab findings: Abnormal Labs 02/21/19 02/21/19 02/21/19 18:30 18:30 18:30 WBC RBC 3.26 L Hgb 8.8 L Hct 29.0 L MCV MCH 27 L MCHC 30 L RDW 19.1 H Lymph % (Auto) 6.1 L [place] % (Auto) Eos % (Auto) Lymph # 0.4 L [place] # Eos # Seg Neutrophils % 86.2 H Seg Neuts % (Manual) Lymphocytes % (Manual) Eosinophils % (Manual) Seg Neutrophils # Lymphocytes # (Manual) Eosinophils # (Manual) PT INR D-Dimer POC ABG pH POC ABG pCO2 POC ABG pO2 ABG pO2 ABG HCO3 ABG Base Excess ABG Hemoglobin Oxyhemoglobin Sodium 133 L Potassium 3.3 L Chloride 93.1 L Carbon Dioxide 33 H BUN Creatinine Glucose 161 H POC Glucose Calcium Phosphorus Magnesium ALT Alkaline Phosphatase 136 H Total Creatine Kinase 37 L CK-MB (CK-2) Rel Index Troponin T 0.192 H* Albumin 2.4 L LDL Cholesterol Direct 36 L PTH Intact Salicylates Acetaminophen Crossmatch 02/21/19 02/21/19 02/21/19 18:42 20:04 20:04 WBC RBC Hgb Hct MCV MCH MCHC RDW Lymph % (Auto) [place] % (Auto) Eos % (Auto) Lymph # [place] # Eos # Seg Neutrophils % Seg Neuts % (Manual) Lymphocytes % (Manual) Eosinophils % (Manual) Seg Neutrophils # Lymphocytes # (Manual) Eosinophils # (Manual) PT INR D-Dimer POC ABG pH POC ABG pCO2 56.7 H POC ABG pO2 291 H ABG pO2 ABG HCO3 ABG Base Excess ABG Hemoglobin Oxyhemoglobin Sodium Potassium Chloride Carbon Dioxide BUN Creatinine Glucose POC Glucose Calcium Phosphorus Magnesium ALT Alkaline Phosphatase Total Creatine Kinase CK-MB (CK-2) Rel Index Troponin T Albumin LDL Cholesterol Direct PTH Intact Salicylates < 0.3 L Acetaminophen < 5.0 L Crossmatch 02/21/19 02/22/19 02/22/19 22:35 03:42 03:42 WBC RBC 3.20 L Hgb 8.8 L Hct 27.6 L MCV MCH MCHC RDW 18.9 H Lymph % (Auto) 7.4 L [place] % (Auto) Eos % (Auto) Lymph # 0.7 L [place] # Eos # Seg Neutrophils % 84.7 H Seg Neuts % (Manual) Lymphocytes % (Manual) Eosinophils % (Manual) Seg Neutrophils # Lymphocytes # (Manual) Eosinophils # (Manual) PT INR D-Dimer POC ABG pH POC ABG pCO2 POC ABG pO2 ABG pO2 ABG HCO3 ABG Base Excess ABG Hemoglobin Oxyhemoglobin Sodium 134 L Potassium 2.6 L* D Chloride Carbon Dioxide BUN Creatinine Glucose POC Glucose Calcium Phosphorus Magnesium ALT Alkaline Phosphatase Total Creatine Kinase CK-MB (CK-2) Rel Index 5.2 H Troponin T 0.202 H* Albumin LDL Cholesterol Direct PTH Intact Salicylates Acetaminophen Crossmatch 02/22/19 02/22/19 02/22/19 03:42 05:54 09:04 WBC RBC Hgb Hct MCV MCH MCHC RDW Lymph % (Auto) [place] % (Auto) Eos % (Auto) Lymph # [place] # Eos # Seg Neutrophils % Seg Neuts % (Manual) Lymphocytes % (Manual) Eosinophils % (Manual) Seg Neutrophils # Lymphocytes # (Manual) Eosinophils # (Manual) PT INR D-Dimer 2987.82 H POC ABG pH 7.451 H POC ABG pCO2 POC ABG pO2 ABG pO2 ABG HCO3 ABG Base Excess ABG Hemoglobin Oxyhemoglobin Sodium Potassium Chloride Carbon Dioxide BUN Creatinine Glucose POC Glucose Calcium Phosphorus Magnesium ALT Alkaline Phosphatase Total Creatine Kinase CK-MB (CK-2) Rel Index 5.7 H Troponin T 0.193 H* Albumin LDL Cholesterol Direct PTH Intact Salicylates Acetaminophen Crossmatch 02/22/19 02/22/19 02/23/19 10:36 23:56 00:52 WBC RBC Hgb Hct MCV MCH MCHC RDW Lymph % (Auto) [place] % (Auto) Eos % (Auto) Lymph # [place] # Eos # Seg Neutrophils % Seg Neuts % (Manual) Lymphocytes % (Manual) Eosinophils % (Manual) Seg Neutrophils # Lymphocytes # (Manual) Eosinophils # (Manual) PT INR D-Dimer POC ABG pH POC ABG pCO2 POC ABG pO2 ABG pO2 ABG HCO3 ABG Base Excess ABG Hemoglobin Oxyhemoglobin Sodium Potassium 3.1 L Chloride Carbon Dioxide BUN Creatinine Glucose POC Glucose 58 L 111 H Calcium Phosphorus Magnesium ALT Alkaline Phosphatase Total Creatine Kinase CK-MB (CK-2) Rel Index Troponin T Albumin LDL Cholesterol Direct PTH Intact Salicylates Acetaminophen Crossmatch 02/23/19 02/23/19 02/23/19 05:00 06:35 14:26 WBC RBC Hgb Hct MCV MCH MCHC RDW Lymph % (Auto) [place] % (Auto) Eos % (Auto) Lymph # [place] # Eos # Seg Neutrophils % Seg Neuts % (Manual) Lymphocytes % (Manual) Eosinophils % (Manual) Seg Neutrophils # Lymphocytes # (Manual) Eosinophils # (Manual) PT INR D-Dimer POC ABG pH POC ABG pCO2 POC ABG pO2 ABG pO2 ABG HCO3 ABG Base Excess ABG Hemoglobin Oxyhemoglobin Sodium 135 L Potassium 3.1 L Chloride Carbon Dioxide BUN 21 H Creatinine 2.0 H Glucose 57 L POC Glucose 64 L 62 L Calcium Phosphorus Magnesium ALT Alkaline Phosphatase Total Creatine Kinase CK-MB (CK-2) Rel Index Troponin T Albumin LDL Cholesterol Direct PTH Intact Salicylates Acetaminophen Crossmatch 02/24/19 02/24/19 02/24/19 02:11 04:12 04:55 WBC RBC 2.84 L Hgb 7.8 L Hct 24.5 L MCV MCH MCHC RDW 19.5 H Lymph % (Auto) [place] % (Auto) Eos % (Auto) Lymph # [place] # Eos # Seg Neutrophils % Seg Neuts % (Manual) Lymphocytes % (Manual) Eosinophils % (Manual) Seg Neutrophils # Lymphocytes # (Manual) Eosinophils # (Manual) PT INR D-Dimer POC ABG pH 7.511 H POC ABG pCO2 33.9 L POC ABG pO2 62 L ABG pO2 ABG HCO3 ABG Base Excess ABG Hemoglobin Oxyhemoglobin Sodium Potassium Chloride Carbon Dioxide BUN Creatinine Glucose POC Glucose 69 L Calcium Phosphorus Magnesium ALT Alkaline Phosphatase Total Creatine Kinase CK-MB (CK-2) Rel Index Troponin T Albumin LDL Cholesterol Direct PTH Intact Salicylates Acetaminophen Crossmatch 02/24/19 02/24/19 02/25/19 04:55 05:41 04:45 WBC RBC Hgb Hct MCV MCH MCHC RDW Lymph % (Auto) [place] % (Auto) Eos % (Auto) Lymph # [place] # Eos # Seg Neutrophils % Seg Neuts % (Manual) Lymphocytes % (Manual) Eosinophils % (Manual) Seg Neutrophils # Lymphocytes # (Manual) Eosinophils # (Manual) PT INR D-Dimer POC ABG pH 7.466 H POC ABG pCO2 POC ABG pO2 75 L ABG pO2 ABG HCO3 ABG Base Excess ABG Hemoglobin Oxyhemoglobin Sodium Potassium Chloride Carbon Dioxide BUN Creatinine 1.8 H Glucose 73 L POC Glucose 127 H Calcium Phosphorus Magnesium ALT Alkaline Phosphatase Total Creatine Kinase CK-MB (CK-2) Rel Index Troponin T Albumin LDL Cholesterol Direct PTH Intact Salicylates Acetaminophen Crossmatch 02/25/19 02/25/19 02/26/19 16:34 21:33 03:45 WBC RBC 2.96 L Hgb 8.0 L Hct 25.8 L MCV MCH 27 L MCHC 31 L RDW 20.0 H Lymph % (Auto) [place] % (Auto) Eos % (Auto) Lymph # [place] # Eos # Seg Neutrophils % Seg Neuts % (Manual) Lymphocytes % (Manual) Eosinophils % (Manual) Seg Neutrophils # Lymphocytes # (Manual) Eosinophils # (Manual) PT INR D-Dimer POC ABG pH POC ABG pCO2 POC ABG pO2 ABG pO2 ABG HCO3 ABG Base Excess ABG Hemoglobin Oxyhemoglobin Sodium Potassium Chloride Carbon Dioxide BUN Creatinine Glucose POC Glucose 141 H 106 H Calcium Phosphorus Magnesium ALT Alkaline Phosphatase Total Creatine Kinase CK-MB (CK-2) Rel Index Troponin T Albumin LDL Cholesterol Direct PTH Intact Salicylates Acetaminophen Crossmatch 02/26/19 02/26/19 02/26/19 03:45 04:13 07:53 WBC RBC Hgb Hct MCV MCH MCHC RDW Lymph % (Auto) [place] % (Auto) Eos % (Auto) Lymph # [place] # Eos # Seg Neutrophils % Seg Neuts % (Manual) Lymphocytes % (Manual) Eosinophils % (Manual) Seg Neutrophils # Lymphocytes # (Manual) Eosinophils # (Manual) PT INR D-Dimer POC ABG pH 7.470 H POC ABG pCO2 POC ABG pO2 ABG pO2 ABG HCO3 ABG Base Excess ABG Hemoglobin Oxyhemoglobin Sodium Potassium Chloride Carbon Dioxide BUN Creatinine 1.8 H Glucose POC Glucose 110 H Calcium Phosphorus Magnesium ALT Alkaline Phosphatase Total Creatine Kinase CK-MB (CK-2) Rel Index Troponin T Albumin LDL Cholesterol Direct PTH Intact Salicylates Acetaminophen Crossmatch 02/26/19 02/26/19 02/27/19 11:56 17:43 00:12 WBC RBC Hgb Hct MCV MCH MCHC RDW Lymph % (Auto) [place] % (Auto) Eos % (Auto) Lymph # [place] # Eos # Seg Neutrophils % Seg Neuts % (Manual) Lymphocytes % (Manual) Eosinophils % (Manual) Seg Neutrophils # Lymphocytes # (Manual) Eosinophils # (Manual) PT INR D-Dimer POC ABG pH POC ABG pCO2 POC ABG pO2 ABG pO2 ABG HCO3 ABG Base Excess ABG Hemoglobin Oxyhemoglobin Sodium Potassium Chloride Carbon Dioxide BUN Creatinine Glucose POC Glucose 112 H 127 H 127 H Calcium Phosphorus Magnesium ALT Alkaline Phosphatase Total Creatine Kinase CK-MB (CK-2) Rel Index Troponin T Albumin LDL Cholesterol Direct PTH Intact Salicylates Acetaminophen Crossmatch 02/27/19 02/27/19 02/27/19 04:35 13:15 18:02 WBC RBC Hgb Hct MCV MCH MCHC RDW Lymph % (Auto) [place] % (Auto) Eos % (Auto) Lymph # [place] # Eos # Seg Neutrophils % Seg Neuts % (Manual) Lymphocytes % (Manual) Eosinophils % (Manual) Seg Neutrophils # Lymphocytes # (Manual) Eosinophils # (Manual) PT INR D-Dimer POC ABG pH 7.483 H POC ABG pCO2 POC ABG pO2 61 L ABG pO2 ABG HCO3 ABG Base Excess ABG Hemoglobin Oxyhemoglobin Sodium Potassium Chloride Carbon Dioxide BUN Creatinine Glucose POC Glucose 143 H 106 H Calcium Phosphorus Magnesium ALT Alkaline Phosphatase Total Creatine Kinase CK-MB (CK-2) Rel Index Troponin T Albumin LDL Cholesterol Direct PTH Intact Salicylates Acetaminophen Crossmatch 02/28/19 02/28/19 02/28/19 05:50 11:59 17:52 WBC RBC Hgb Hct MCV MCH MCHC RDW Lymph % (Auto) [place] % (Auto) Eos % (Auto) Lymph # [place] # Eos # Seg Neutrophils % Seg Neuts % (Manual) Lymphocytes % (Manual) Eosinophils % (Manual) Seg Neutrophils # Lymphocytes # (Manual) Eosinophils # (Manual) PT INR D-Dimer POC ABG pH POC ABG pCO2 POC ABG pO2 ABG pO2 ABG HCO3 ABG Base Excess ABG Hemoglobin Oxyhemoglobin Sodium Potassium Chloride Carbon Dioxide BUN Creatinine Glucose POC Glucose 134 H 128 H 142 H Calcium Phosphorus Magnesium ALT Alkaline Phosphatase Total Creatine Kinase CK-MB (CK-2) Rel Index Troponin T Albumin LDL Cholesterol Direct PTH Intact Salicylates Acetaminophen Crossmatch 02/28/19 03/01/19 03/01/19 23:13 05:40 09:39 WBC RBC Hgb Hct MCV MCH MCHC RDW Lymph % (Auto) [place] % (Auto) Eos % (Auto) Lymph # [place] # Eos # Seg Neutrophils % Seg Neuts % (Manual) Lymphocytes % (Manual) Eosinophils % (Manual) Seg Neutrophils # Lymphocytes # (Manual) Eosinophils # (Manual) PT 16.3 H INR 1.35 H D-Dimer POC ABG pH POC ABG pCO2 POC ABG pO2 ABG pO2 ABG HCO3 ABG Base Excess ABG Hemoglobin Oxyhemoglobin Sodium Potassium Chloride Carbon Dioxide BUN Creatinine Glucose POC Glucose 112 H 111 H Calcium Phosphorus Magnesium ALT Alkaline Phosphatase Total Creatine Kinase CK-MB (CK-2) Rel Index Troponin T Albumin LDL Cholesterol Direct PTH Intact Salicylates Acetaminophen Crossmatch 03/01/19 03/01/19 03/01/19 11:56 13:54 17:59 WBC RBC Hgb Hct MCV MCH MCHC RDW Lymph % (Auto) [place] % (Auto) Eos % (Auto) Lymph # [place] # Eos # Seg Neutrophils % Seg Neuts % (Manual) Lymphocytes % (Manual) Eosinophils % (Manual) Seg Neutrophils # Lymphocytes # (Manual) Eosinophils # (Manual) PT INR D-Dimer POC ABG pH POC ABG pCO2 POC ABG pO2 ABG pO2 ABG HCO3 ABG Base Excess ABG Hemoglobin Oxyhemoglobin Sodium Potassium Chloride Carbon Dioxide BUN 33 H Creatinine 2.8 H D Glucose 176 H POC Glucose 199 H 147 H Calcium Phosphorus Magnesium ALT Alkaline Phosphatase Total Creatine Kinase CK-MB (CK-2) Rel Index Troponin T Albumin LDL Cholesterol Direct PTH Intact Salicylates Acetaminophen Crossmatch 03/02/19 03/02/19 03/02/19 05:15 05:15 05:15 WBC RBC 2.73 L Hgb 7.4 L Hct 23.0 L MCV MCH 27 L MCHC RDW 19.9 H Lymph % (Auto) [place] % (Auto) 7.9 H Eos % (Auto) 7.6 H Lymph # 1.0 L [place] # Eos # 0.5 H Seg Neutrophils % Seg Neuts % (Manual) Lymphocytes % (Manual) Eosinophils % (Manual) Seg Neutrophils # Lymphocytes # (Manual) Eosinophils # (Manual) PT INR D-Dimer POC ABG pH POC ABG pCO2 POC ABG pO2 ABG pO2 ABG HCO3 ABG Base Excess ABG Hemoglobin Oxyhemoglobin Sodium Potassium Chloride Carbon Dioxide BUN 43 H Creatinine 3.2 H Glucose POC Glucose Calcium Phosphorus 2.30 L Magnesium ALT Alkaline Phosphatase Total Creatine Kinase CK-MB (CK-2) Rel Index Troponin T Albumin LDL Cholesterol Direct PTH Intact 267.6 H Salicylates Acetaminophen Crossmatch 03/02/19 03/02/19 03/03/19 12:32 18:20 13:30 WBC RBC Hgb Hct MCV MCH MCHC RDW Lymph % (Auto) [place] % (Auto) Eos % (Auto) Lymph # [place] # Eos # Seg Neutrophils % Seg Neuts % (Manual) Lymphocytes % (Manual) Eosinophils % (Manual) Seg Neutrophils # Lymphocytes # (Manual) Eosinophils # (Manual) PT INR D-Dimer POC ABG pH POC ABG pCO2 POC ABG pO2 ABG pO2 ABG HCO3 ABG Base Excess ABG Hemoglobin Oxyhemoglobin Sodium Potassium Chloride 97.3 L Carbon Dioxide BUN 26 H Creatinine 2.2 H Glucose 73 L POC Glucose 111 H 156 H Calcium Phosphorus Magnesium ALT Alkaline Phosphatase Total Creatine Kinase CK-MB (CK-2) Rel Index Troponin T Albumin LDL Cholesterol Direct PTH Intact Salicylates Acetaminophen Crossmatch 03/04/19 03/04/19 03/04/19 00:02 05:37 05:40 WBC RBC 2.63 L Hgb 7.2 L Hct 22.2 L MCV MCH MCHC RDW 20.2 H Lymph % (Auto) 10.5 L [place] % (Auto) Eos % (Auto) 4.6 H Lymph # 0.7 L [place] # Eos # Seg Neutrophils % 76.9 H Seg Neuts % (Manual) Lymphocytes % (Manual) Eosinophils % (Manual) Seg Neutrophils # Lymphocytes # (Manual) Eosinophils # (Manual) PT INR D-Dimer POC ABG pH POC ABG pCO2 POC ABG pO2 ABG pO2 ABG HCO3 ABG Base Excess ABG Hemoglobin Oxyhemoglobin Sodium Potassium Chloride Carbon Dioxide BUN Creatinine Glucose POC Glucose 136 H 123 H Calcium Phosphorus Magnesium ALT Alkaline Phosphatase Total Creatine Kinase CK-MB (CK-2) Rel Index Troponin T Albumin LDL Cholesterol Direct PTH Intact Salicylates Acetaminophen Crossmatch 03/04/19 03/04/19 03/04/19 05:40 11:39 23:20 WBC RBC Hgb Hct MCV MCH MCHC RDW Lymph % (Auto) [place] % (Auto) Eos % (Auto) Lymph # [place] # Eos # Seg Neutrophils % Seg Neuts % (Manual) Lymphocytes % (Manual) Eosinophils % (Manual) Seg Neutrophils # Lymphocytes # (Manual) Eosinophils # (Manual) PT INR D-Dimer POC ABG pH POC ABG pCO2 POC ABG pO2 ABG pO2 ABG HCO3 ABG Base Excess ABG Hemoglobin Oxyhemoglobin Sodium Potassium Chloride Carbon Dioxide BUN 34 H Creatinine 2.7 H Glucose 114 H POC Glucose 175 H 151 H Calcium Phosphorus Magnesium ALT Alkaline Phosphatase Total Creatine Kinase CK-MB (CK-2) Rel Index Troponin T Albumin LDL Cholesterol Direct PTH Intact Salicylates Acetaminophen Crossmatch 03/05/19 03/05/19 03/05/19 05:37 12:08 17:11 WBC RBC Hgb Hct MCV MCH MCHC RDW Lymph % (Auto) [place] % (Auto) Eos % (Auto) Lymph # [place] # Eos # Seg Neutrophils % Seg Neuts % (Manual) Lymphocytes % (Manual) Eosinophils % (Manual) Seg Neutrophils # Lymphocytes # (Manual) Eosinophils # (Manual) PT INR D-Dimer POC ABG pH POC ABG pCO2 POC ABG pO2 ABG pO2 ABG HCO3 ABG Base Excess ABG Hemoglobin Oxyhemoglobin Sodium Potassium Chloride Carbon Dioxide BUN Creatinine Glucose POC Glucose 134 H 135 H 135 H Calcium Phosphorus Magnesium ALT Alkaline Phosphatase Total Creatine Kinase CK-MB (CK-2) Rel Index Troponin T Albumin LDL Cholesterol Direct PTH Intact Salicylates Acetaminophen Crossmatch 03/06/19 03/06/19 03/06/19 00:16 13:05 18:09 WBC RBC Hgb Hct MCV MCH MCHC RDW Lymph % (Auto) [place] % (Auto) Eos % (Auto) Lymph # [place] # Eos # Seg Neutrophils % Seg Neuts % (Manual) Lymphocytes % (Manual) Eosinophils % (Manual) Seg Neutrophils # Lymphocytes # (Manual) Eosinophils # (Manual) PT INR D-Dimer POC ABG pH POC ABG pCO2 POC ABG pO2 ABG pO2 ABG HCO3 ABG Base Excess ABG Hemoglobin Oxyhemoglobin Sodium Potassium Chloride Carbon Dioxide BUN Creatinine Glucose POC Glucose 117 H 113 H 131 H Calcium Phosphorus Magnesium ALT Alkaline Phosphatase Total Creatine Kinase CK-MB (CK-2) Rel Index Troponin T Albumin LDL Cholesterol Direct PTH Intact Salicylates Acetaminophen Crossmatch 03/07/19 03/08/19 03/08/19 05:25 05:33 16:00 WBC RBC 2.44 L Hgb 6.6 L Hct 20.8 L MCV MCH 27 L MCHC RDW 19.2 H Lymph % (Auto) [place] % (Auto) Eos % (Auto) 8.6 H Lymph # 0.8 L [place] # Eos # 0.5 H Seg Neutrophils % 70.7 H Seg Neuts % (Manual) Lymphocytes % (Manual) Eosinophils % (Manual) Seg Neutrophils # Lymphocytes # (Manual) Eosinophils # (Manual) PT INR D-Dimer POC ABG pH POC ABG pCO2 POC ABG pO2 ABG pO2 ABG HCO3 ABG Base Excess ABG Hemoglobin Oxyhemoglobin Sodium Potassium Chloride Carbon Dioxide BUN Creatinine Glucose POC Glucose 106 H 108 H Calcium Phosphorus Magnesium ALT Alkaline Phosphatase Total Creatine Kinase CK-MB (CK-2) Rel Index Troponin T Albumin LDL Cholesterol Direct PTH Intact Salicylates Acetaminophen Crossmatch 03/08/19 03/08/19 03/08/19 16:00 18:38 Unknown WBC RBC Hgb Hct MCV MCH MCHC RDW Lymph % (Auto) [place] % (Auto) Eos % (Auto) Lymph # [place] # Eos # Seg Neutrophils % Seg Neuts % (Manual) Lymphocytes % (Manual) Eosinophils % (Manual) Seg Neutrophils # Lymphocytes # (Manual) Eosinophils # (Manual) PT INR D-Dimer POC ABG pH POC ABG pCO2 POC ABG pO2 ABG pO2 ABG HCO3 ABG Base Excess ABG Hemoglobin Oxyhemoglobin Sodium Potassium 5.4 H D Chloride Carbon Dioxide BUN 47 H Creatinine 2.6 H Glucose POC Glucose 123 H Calcium Phosphorus Magnesium ALT < 5 L Alkaline Phosphatase Total Creatine Kinase CK-MB (CK-2) Rel Index Troponin T Albumin 2.2 L LDL Cholesterol Direct PTH Intact Salicylates Acetaminophen Crossmatch See Detail 03/09/19 03/09/19 03/09/19 10:48 12:28 13:53 WBC RBC 2.85 L Hgb 7.7 L Hct 24.2 L MCV MCH 27 L MCHC RDW 18.7 H Lymph % (Auto) [place] % (Auto) Eos % (Auto) Lymph # [place] # Eos # Seg Neutrophils % Seg Neuts % (Manual) Lymphocytes % (Manual) Eosinophils % (Manual) Seg Neutrophils # Lymphocytes # (Manual) Eosinophils # (Manual) PT INR D-Dimer POC ABG pH POC ABG pCO2 POC ABG pO2 ABG pO2 ABG HCO3 30.5 H ABG Base Excess 5.6 H ABG Hemoglobin 8.1 L Oxyhemoglobin 93.8 L Sodium Potassium Chloride Carbon Dioxide BUN Creatinine Glucose POC Glucose 114 H Calcium Phosphorus Magnesium ALT Alkaline Phosphatase Total Creatine Kinase CK-MB (CK-2) Rel Index Troponin T Albumin LDL Cholesterol Direct PTH Intact Salicylates Acetaminophen Crossmatch 03/09/19 03/09/19 03/10/19 17:58 23:53 12:01 WBC RBC Hgb Hct MCV MCH MCHC RDW Lymph % (Auto) [place] % (Auto) Eos % (Auto) Lymph # [place] # Eos # Seg Neutrophils % Seg Neuts % (Manual) Lymphocytes % (Manual) Eosinophils % (Manual) Seg Neutrophils # Lymphocytes # (Manual) Eosinophils # (Manual) PT INR D-Dimer POC ABG pH POC ABG pCO2 POC ABG pO2 ABG pO2 ABG HCO3 ABG Base Excess ABG Hemoglobin Oxyhemoglobin Sodium Potassium Chloride Carbon Dioxide BUN Creatinine Glucose POC Glucose 108 H 128 H 144 H Calcium Phosphorus Magnesium ALT Alkaline Phosphatase Total Creatine Kinase CK-MB (CK-2) Rel Index Troponin T Albumin LDL Cholesterol Direct PTH Intact Salicylates Acetaminophen Crossmatch 03/10/19 03/11/19 03/11/19 16:50 00:24 05:02 WBC RBC Hgb Hct MCV MCH MCHC RDW Lymph % (Auto) [place] % (Auto) Eos % (Auto) Lymph # [place] # Eos # Seg Neutrophils % Seg Neuts % (Manual) Lymphocytes % (Manual) Eosinophils % (Manual) Seg Neutrophils # Lymphocytes # (Manual) Eosinophils # (Manual) PT INR D-Dimer POC ABG pH POC ABG pCO2 POC ABG pO2 ABG pO2 ABG HCO3 ABG Base Excess ABG Hemoglobin Oxyhemoglobin Sodium Potassium Chloride Carbon Dioxide BUN Creatinine Glucose POC Glucose 147 H 123 H 120 H Calcium Phosphorus Magnesium ALT Alkaline Phosphatase Total Creatine Kinase CK-MB (CK-2) Rel Index Troponin T Albumin LDL Cholesterol Direct PTH Intact Salicylates Acetaminophen Crossmatch 03/11/19 03/11/19 03/11/19 11:56 12:20 18:37 WBC RBC Hgb Hct MCV MCH MCHC RDW Lymph % (Auto) [place] % (Auto) Eos % (Auto) Lymph # [place] # Eos # Seg Neutrophils % Seg Neuts % (Manual) Lymphocytes % (Manual) Eosinophils % (Manual) Seg Neutrophils # Lymphocytes # (Manual) Eosinophils # (Manual) PT INR D-Dimer POC ABG pH POC ABG pCO2 POC ABG pO2 ABG pO2 ABG HCO3 ABG Base Excess ABG Hemoglobin Oxyhemoglobin Sodium Potassium 5.2 H Chloride Carbon Dioxide BUN Creatinine Glucose POC Glucose 123 H 125 H Calcium Phosphorus Magnesium ALT Alkaline Phosphatase Total Creatine Kinase CK-MB (CK-2) Rel Index Troponin T Albumin LDL Cholesterol Direct PTH Intact Salicylates Acetaminophen Crossmatch 03/11/19 03/12/19 03/12/19 22:52 12:04 18:25 WBC RBC Hgb Hct MCV MCH MCHC RDW Lymph % (Auto) [place] % (Auto) Eos % (Auto) Lymph # [place] # Eos # Seg Neutrophils % Seg Neuts % (Manual) Lymphocytes % (Manual) Eosinophils % (Manual) Seg Neutrophils # Lymphocytes # (Manual) Eosinophils # (Manual) PT INR D-Dimer POC ABG pH POC ABG pCO2 POC ABG pO2 ABG pO2 ABG HCO3 ABG Base Excess ABG Hemoglobin Oxyhemoglobin Sodium Potassium Chloride Carbon Dioxide BUN Creatinine Glucose POC Glucose 110 H 106 H 118 H Calcium Phosphorus Magnesium ALT Alkaline Phosphatase Total Creatine Kinase CK-MB (CK-2) Rel Index Troponin T Albumin LDL Cholesterol Direct PTH Intact Salicylates Acetaminophen Crossmatch 03/12/19 03/13/19 03/13/19 23:36 04:38 04:38 WBC RBC 2.95 L Hgb 7.9 L Hct 24.9 L MCV MCH 27 L MCHC RDW 19.9 H Lymph % (Auto) 11.1 L [place] % (Auto) 8.1 H Eos % (Auto) 4.4 H Lymph # 0.9 L [place] # Eos # Seg Neutrophils % 75.4 H Seg Neuts % (Manual) Lymphocytes % (Manual) Eosinophils % (Manual) Seg Neutrophils # Lymphocytes # (Manual) Eosinophils # (Manual) PT INR D-Dimer POC ABG pH POC ABG pCO2 POC ABG pO2 ABG pO2 ABG HCO3 ABG Base Excess ABG Hemoglobin Oxyhemoglobin Sodium 136 L Potassium 5.1 H Chloride 93.8 L Carbon Dioxide BUN 48 H Creatinine 2.7 H Glucose 102 H POC Glucose 115 H Calcium Phosphorus Magnesium ALT < 5 L Alkaline Phosphatase 143 H Total Creatine Kinase CK-MB (CK-2) Rel Index Troponin T Albumin 2.5 L LDL Cholesterol Direct PTH Intact Salicylates Acetaminophen Crossmatch 03/13/19 03/13/19 03/13/19 05:33 13:37 18:03 WBC RBC Hgb Hct MCV MCH MCHC RDW Lymph % (Auto) [place] % (Auto) Eos % (Auto) Lymph # [place] # Eos # Seg Neutrophils % Seg Neuts % (Manual) Lymphocytes % (Manual) Eosinophils % (Manual) Seg Neutrophils # Lymphocytes # (Manual) Eosinophils # (Manual) PT INR D-Dimer POC ABG pH POC ABG pCO2 POC ABG pO2 ABG pO2 ABG HCO3 ABG Base Excess ABG Hemoglobin Oxyhemoglobin Sodium Potassium Chloride Carbon Dioxide BUN Creatinine Glucose POC Glucose 140 H 150 H 158 H Calcium Phosphorus Magnesium ALT Alkaline Phosphatase Total Creatine Kinase CK-MB (CK-2) Rel Index Troponin T Albumin LDL Cholesterol Direct PTH Intact Salicylates Acetaminophen Crossmatch 03/13/19 03/14/19 03/14/19 23:32 05:24 12:20 WBC RBC Hgb Hct MCV MCH MCHC RDW Lymph % (Auto) [place] % (Auto) Eos % (Auto) Lymph # [place] # Eos # Seg Neutrophils % Seg Neuts % (Manual) Lymphocytes % (Manual) Eosinophils % (Manual) Seg Neutrophils # Lymphocytes # (Manual) Eosinophils # (Manual) PT INR D-Dimer POC ABG pH POC ABG pCO2 POC ABG pO2 ABG pO2 ABG HCO3 ABG Base Excess ABG Hemoglobin Oxyhemoglobin Sodium Potassium Chloride Carbon Dioxide BUN Creatinine Glucose POC Glucose 162 H 146 H 127 H Calcium Phosphorus Magnesium ALT Alkaline Phosphatase Total Creatine Kinase CK-MB (CK-2) Rel Index Troponin T Albumin LDL Cholesterol Direct PTH Intact Salicylates Acetaminophen Crossmatch 03/14/19 03/14/19 03/15/19 18:05 23:57 04:38 WBC 12.8 H RBC 3.11 L Hgb 8.1 L Hct 26.5 L MCV MCH 26 L MCHC 31 L RDW 19.7 H Lymph % (Auto) 4.4 L [place] % (Auto) 7.4 H Eos % (Auto) Lymph # 0.6 L [place] # 0.9 H Eos # Seg Neutrophils % 87.3 H Seg Neuts % (Manual) Lymphocytes % (Manual) Eosinophils % (Manual) Seg Neutrophils # 11.2 H Lymphocytes # (Manual) Eosinophils # (Manual) PT INR D-Dimer POC ABG pH POC ABG pCO2 POC ABG pO2 ABG pO2 ABG HCO3 ABG Base Excess ABG Hemoglobin Oxyhemoglobin Sodium Potassium Chloride Carbon Dioxide BUN Creatinine Glucose POC Glucose 142 H 155 H Calcium Phosphorus Magnesium ALT Alkaline Phosphatase Total Creatine Kinase CK-MB (CK-2) Rel Index Troponin T Albumin LDL Cholesterol Direct PTH Intact Salicylates Acetaminophen Crossmatch 03/15/19 03/15/19 03/15/19 04:38 05:31 11:32 WBC RBC Hgb Hct MCV MCH MCHC RDW Lymph % (Auto) [place] % (Auto) Eos % (Auto) Lymph # [place] # Eos # Seg Neutrophils % Seg Neuts % (Manual) Lymphocytes % (Manual) Eosinophils % (Manual) Seg Neutrophils # Lymphocytes # (Manual) Eosinophils # (Manual) PT INR D-Dimer POC ABG pH POC ABG pCO2 POC ABG pO2 ABG pO2 ABG HCO3 ABG Base Excess ABG Hemoglobin Oxyhemoglobin Sodium 135 L Potassium Chloride 91.9 L Carbon Dioxide BUN 54 H Creatinine 2.8 H Glucose 128 H POC Glucose 160 H 109 H Calcium 11.1 H Phosphorus Magnesium ALT Alkaline Phosphatase 161 H Total Creatine Kinase CK-MB (CK-2) Rel Index Troponin T Albumin 2.3 L LDL Cholesterol Direct PTH Intact Salicylates Acetaminophen Crossmatch 03/15/19 03/15/19 03/16/19 18:15 23:41 05:40 WBC RBC Hgb Hct MCV MCH MCHC RDW Lymph % (Auto) [place] % (Auto) Eos % (Auto) Lymph # [place] # Eos # Seg Neutrophils % Seg Neuts % (Manual) Lymphocytes % (Manual) Eosinophils % (Manual) Seg Neutrophils # Lymphocytes # (Manual) Eosinophils # (Manual) PT INR D-Dimer POC ABG pH POC ABG pCO2 POC ABG pO2 ABG pO2 ABG HCO3 ABG Base Excess ABG Hemoglobin Oxyhemoglobin Sodium Potassium Chloride Carbon Dioxide BUN Creatinine Glucose POC Glucose 151 H 110 H 163 H Calcium Phosphorus Magnesium ALT Alkaline Phosphatase Total Creatine Kinase CK-MB (CK-2) Rel Index Troponin T Albumin LDL Cholesterol Direct PTH Intact Salicylates Acetaminophen Crossmatch 03/16/19 03/16/19 03/16/19 11:55 17:04 23:58 WBC RBC Hgb Hct MCV MCH MCHC RDW Lymph % (Auto) [place] % (Auto) Eos % (Auto) Lymph # [place] # Eos # Seg Neutrophils % Seg Neuts % (Manual) Lymphocytes % (Manual) Eosinophils % (Manual) Seg Neutrophils # Lymphocytes # (Manual) Eosinophils # (Manual) PT INR D-Dimer POC ABG pH POC ABG pCO2 POC ABG pO2 ABG pO2 ABG HCO3 ABG Base Excess ABG Hemoglobin Oxyhemoglobin Sodium Potassium Chloride Carbon Dioxide BUN Creatinine Glucose POC Glucose 114 H 147 H 192 H Calcium Phosphorus Magnesium ALT Alkaline Phosphatase Total Creatine Kinase CK-MB (CK-2) Rel Index Troponin T Albumin LDL Cholesterol Direct PTH Intact Salicylates Acetaminophen Crossmatch 03/17/19 03/17/19 03/17/19 05:53 11:17 17:01 WBC RBC Hgb Hct MCV MCH MCHC RDW Lymph % (Auto) [place] % (Auto) Eos % (Auto) Lymph # [place] # Eos # Seg Neutrophils % Seg Neuts % (Manual) Lymphocytes % (Manual) Eosinophils % (Manual) Seg Neutrophils # Lymphocytes # (Manual) Eosinophils # (Manual) PT INR D-Dimer POC ABG pH POC ABG pCO2 POC ABG pO2 ABG pO2 ABG HCO3 ABG Base Excess ABG Hemoglobin Oxyhemoglobin Sodium Potassium Chloride Carbon Dioxide BUN Creatinine Glucose POC Glucose 151 H 161 H 152 H Calcium Phosphorus Magnesium ALT Alkaline Phosphatase Total Creatine Kinase CK-MB (CK-2) Rel Index Troponin T Albumin LDL Cholesterol Direct PTH Intact Salicylates Acetaminophen Crossmatch 03/17/19 03/18/19 03/18/19 21:47 04:15 04:44 WBC RBC Hgb Hct MCV MCH MCHC RDW Lymph % (Auto) [place] % (Auto) Eos % (Auto) Lymph # [place] # Eos # Seg Neutrophils % Seg Neuts % (Manual) Lymphocytes % (Manual) Eosinophils % (Manual) Seg Neutrophils # Lymphocytes # (Manual) Eosinophils # (Manual) PT INR D-Dimer POC ABG pH POC ABG pCO2 POC ABG pO2 ABG pO2 102.8 H ABG HCO3 28.3 H ABG Base Excess ABG Hemoglobin 10.4 L Oxyhemoglobin 94.5 L Sodium Potassium Chloride Carbon Dioxide BUN Creatinine Glucose POC Glucose 170 H 150 H Calcium Phosphorus Magnesium ALT Alkaline Phosphatase Total Creatine Kinase CK-MB (CK-2) Rel Index Troponin T Albumin LDL Cholesterol Direct PTH Intact Salicylates Acetaminophen Crossmatch 03/18/19 03/18/19 03/18/19 06:38 12:12 17:47 WBC RBC Hgb Hct MCV MCH MCHC RDW Lymph % (Auto) [place] % (Auto) Eos % (Auto) Lymph # [place] # Eos # Seg Neutrophils % Seg Neuts % (Manual) Lymphocytes % (Manual) Eosinophils % (Manual) Seg Neutrophils # Lymphocytes # (Manual) Eosinophils # (Manual) PT INR D-Dimer POC ABG pH 7.510 H POC ABG pCO2 POC ABG pO2 164 H ABG pO2 ABG HCO3 ABG Base Excess ABG Hemoglobin Oxyhemoglobin Sodium Potassium Chloride Carbon Dioxide BUN Creatinine Glucose POC Glucose 145 H 149 H Calcium Phosphorus Magnesium ALT Alkaline Phosphatase Total Creatine Kinase CK-MB (CK-2) Rel Index Troponin T Albumin LDL Cholesterol Direct PTH Intact Salicylates Acetaminophen Crossmatch 03/18/19 03/19/19 03/19/19 23:25 01:11 04:23 WBC 15.6 H RBC 2.51 L Hgb 6.5 L Hct 21.6 L MCV MCH 26 L MCHC 30 L RDW 19.8 H Lymph % (Auto) 6.0 L [place] % (Auto) Eos % (Auto) Lymph # 0.9 L [place] # 1.0 H Eos # Seg Neutrophils % 85.5 H Seg Neuts % (Manual) Lymphocytes % (Manual) Eosinophils % (Manual) Seg Neutrophils # 13.4 H Lymphocytes # (Manual) Eosinophils # (Manual) PT INR D-Dimer POC ABG pH POC ABG pCO2 POC ABG pO2 ABG pO2 78.3 L ABG HCO3 30.7 H ABG Base Excess 5.8 H ABG Hemoglobin 5.8 L Oxyhemoglobin 94.6 L Sodium Potassium Chloride Carbon Dioxide BUN Creatinine Glucose POC Glucose 190 H Calcium Phosphorus Magnesium ALT Alkaline Phosphatase Total Creatine Kinase CK-MB (CK-2) Rel Index Troponin T Albumin LDL Cholesterol Direct PTH Intact Salicylates Acetaminophen Crossmatch 03/19/19 03/19/19 03/19/19 05:22 05:35 08:54 WBC RBC Hgb Hct MCV MCH MCHC RDW Lymph % (Auto) [place] % (Auto) Eos % (Auto) Lymph # [place] # Eos # Seg Neutrophils % Seg Neuts % (Manual) Lymphocytes % (Manual) Eosinophils % (Manual) Seg Neutrophils # Lymphocytes # (Manual) Eosinophils # (Manual) PT INR D-Dimer POC ABG pH POC ABG pCO2 POC ABG pO2 ABG pO2 ABG HCO3 ABG Base Excess ABG Hemoglobin Oxyhemoglobin Sodium Potassium Chloride Carbon Dioxide BUN Creatinine Glucose POC Glucose 167 H Calcium Phosphorus Magnesium ALT Alkaline Phosphatase Total Creatine Kinase CK-MB (CK-2) Rel Index Troponin T Albumin LDL Cholesterol Direct PTH Intact Salicylates Acetaminophen Crossmatch See Detail See Detail 03/19/19 03/19/19 03/19/19 12:36 17:02 23:25 WBC RBC Hgb Hct MCV MCH MCHC RDW Lymph % (Auto) [place] % (Auto) Eos % (Auto) Lymph # [place] # Eos # Seg Neutrophils % Seg Neuts % (Manual) Lymphocytes % (Manual) Eosinophils % (Manual) Seg Neutrophils # Lymphocytes # (Manual) Eosinophils # (Manual) PT INR D-Dimer POC ABG pH POC ABG pCO2 POC ABG pO2 ABG pO2 ABG HCO3 ABG Base Excess ABG Hemoglobin Oxyhemoglobin Sodium Potassium Chloride Carbon Dioxide BUN Creatinine Glucose POC Glucose 167 H 135 H 136 H Calcium Phosphorus Magnesium ALT Alkaline Phosphatase Total Creatine Kinase CK-MB (CK-2) Rel Index Troponin T Albumin LDL Cholesterol Direct PTH Intact Salicylates Acetaminophen Crossmatch 03/20/19 03/20/19 03/20/19 05:38 08:40 08:40 WBC RBC 2.61 L Hgb 7.1 L Hct 22.0 L MCV MCH 27 L MCHC RDW 19.6 H Lymph % (Auto) 8.2 L [place] % (Auto) 8.3 H Eos % (Auto) 5.7 H Lymph # 0.8 L [place] # Eos # 0.5 H Seg Neutrophils % 77.3 H Seg Neuts % (Manual) Lymphocytes % (Manual) Eosinophils % (Manual) Seg Neutrophils # Lymphocytes # (Manual) Eosinophils # (Manual) PT INR D-Dimer POC ABG pH POC ABG pCO2 POC ABG pO2 ABG pO2 ABG HCO3 ABG Base Excess ABG Hemoglobin Oxyhemoglobin Sodium Potassium Chloride 95.9 L Carbon Dioxide BUN 69 H Creatinine 2.8 H Glucose 115 H POC Glucose 134 H Calcium 10.5 H Phosphorus Magnesium ALT Alkaline Phosphatase Total Creatine Kinase CK-MB (CK-2) Rel Index Troponin T Albumin LDL Cholesterol Direct PTH Intact Salicylates Acetaminophen Crossmatch 03/20/19 03/20/19 03/20/19 12:13 18:04 23:49 WBC RBC Hgb Hct MCV MCH MCHC RDW Lymph % (Auto) [place] % (Auto) Eos % (Auto) Lymph # [place] # Eos # Seg Neutrophils % Seg Neuts % (Manual) Lymphocytes % (Manual) Eosinophils % (Manual) Seg Neutrophils # Lymphocytes # (Manual) Eosinophils # (Manual) PT INR D-Dimer POC ABG pH POC ABG pCO2 POC ABG pO2 ABG pO2 ABG HCO3 ABG Base Excess ABG Hemoglobin Oxyhemoglobin Sodium Potassium Chloride Carbon Dioxide BUN Creatinine Glucose POC Glucose 144 H 165 H 172 H Calcium Phosphorus Magnesium ALT Alkaline Phosphatase Total Creatine Kinase CK-MB (CK-2) Rel Index Troponin T Albumin LDL Cholesterol Direct PTH Intact Salicylates Acetaminophen Crossmatch 03/21/19 03/21/19 03/21/19 05:00 06:29 06:30 WBC RBC 2.72 L Hgb 7.4 L Hct 22.9 L MCV MCH 27 L MCHC RDW 19.4 H Lymph % (Auto) [place] % (Auto) Eos % (Auto) Lymph # [place] # Eos # Seg Neutrophils % Seg Neuts % (Manual) 81.0 H Lymphocytes % (Manual) 8.0 L Eosinophils % (Manual) 8.0 H Seg Neutrophils # Lymphocytes # (Manual) 0.7 L Eosinophils # (Manual) 0.7 H PT INR D-Dimer POC ABG pH POC ABG pCO2 POC ABG pO2 ABG pO2 ABG HCO3 ABG Base Excess ABG Hemoglobin Oxyhemoglobin Sodium Potassium Chloride Carbon Dioxide 33 H BUN 43 H Creatinine 1.7 H Glucose 145 H POC Glucose 156 H Calcium Phosphorus Magnesium ALT Alkaline Phosphatase 212 H Total Creatine Kinase CK-MB (CK-2) Rel Index Troponin T Albumin 2.2 L LDL Cholesterol Direct PTH Intact Salicylates Acetaminophen Crossmatch 03/21/19 03/21/1919 12:02 18:07 00:21 WBC RBC Hgb Hct MCV MCH MCHC RDW Lymph % (Auto) [place] % (Auto) Eos % (Auto) Lymph # [place] # Eos # Seg Neutrophils % Seg Neuts % (Manual) Lymphocytes % (Manual) Eosinophils % (Manual) Seg Neutrophils # Lymphocytes # (Manual) Eosinophils # (Manual) PT INR D-Dimer POC ABG pH POC ABG pCO2 POC ABG pO2 ABG pO2 ABG HCO3 ABG Base Excess ABG Hemoglobin Oxyhemoglobin Sodium Potassium Chloride Carbon Dioxide BUN Creatinine Glucose POC Glucose 163 H 144 H 153 H Calcium Phosphorus Magnesium ALT Alkaline Phosphatase Total Creatine Kinase CK-MB (CK-2) Rel Index Troponin T Albumin LDL Cholesterol Direct PTH Intact Salicylates Acetaminophen Crossmatch 03/22/19 03/22/19 03/22/19 05:23 05:23 05:31 WBC RBC 2.58 L Hgb 7.1 L Hct 21.8 L MCV MCH 27 L MCHC RDW 19.2 H Lymph % (Auto) [place] % (Auto) Eos % (Auto) Lymph # [place] # Eos # Seg Neutrophils % Seg Neuts % (Manual) Lymphocytes % (Manual) Eosinophils % (Manual) Seg Neutrophils # Lymphocytes # (Manual) Eosinophils # (Manual) PT INR D-Dimer POC ABG pH POC ABG pCO2 POC ABG pO2 ABG pO2 ABG HCO3 ABG Base Excess ABG Hemoglobin Oxyhemoglobin Sodium 147 H Potassium Chloride Carbon Dioxide BUN 68 H Creatinine 2.5 H Glucose POC Glucose 116 H Calcium 10.3 H Phosphorus Magnesium ALT Alkaline Phosphatase Total Creatine Kinase CK-MB (CK-2) Rel Index Troponin T Albumin LDL Cholesterol Direct PTH Intact Salicylates Acetaminophen Crossmatch 03/22/19 03/22/19 03/22/19 08:48 12:37 17:35 WBC RBC Hgb Hct MCV MCH MCHC RDW Lymph % (Auto) [place] % (Auto) Eos % (Auto) Lymph # [place] # Eos # Seg Neutrophils % Seg Neuts % (Manual) Lymphocytes % (Manual) Eosinophils % (Manual) Seg Neutrophils # Lymphocytes # (Manual) Eosinophils # (Manual) PT INR D-Dimer POC ABG pH POC ABG pCO2 POC ABG pO2 ABG pO2 ABG HCO3 ABG Base Excess ABG Hemoglobin Oxyhemoglobin Sodium Potassium Chloride Carbon Dioxide BUN Creatinine Glucose POC Glucose 143 H 155 H Calcium Phosphorus Magnesium ALT Alkaline Phosphatase Total Creatine Kinase CK-MB (CK-2) Rel Index Troponin T Albumin LDL Cholesterol Direct PTH Intact Salicylates Acetaminophen Crossmatch See Detail 03/23/19 03/23/19 03/23/19 00:07 04:00 04:00 WBC 11.2 H RBC 2.32 L Hgb 6.4 L Hct 19.7 L* MCV MCH MCHC RDW 19.4 H Lymph % (Auto) [place] % (Auto) Eos % (Auto) Lymph # [place] # Eos # Seg Neutrophils % Seg Neuts % (Manual) Lymphocytes % (Manual) Eosinophils % (Manual) Seg Neutrophils # Lymphocytes # (Manual) Eosinophils # (Manual) PT INR D-Dimer POC ABG pH POC ABG pCO2 POC ABG pO2 ABG pO2 ABG HCO3 ABG Base Excess ABG Hemoglobin Oxyhemoglobin Sodium 147 H Potassium 5.2 H Chloride Carbon Dioxide BUN 86 H Creatinine 3.2 H Glucose 128 H POC Glucose 135 H Calcium 10.3 H Phosphorus Magnesium ALT Alkaline Phosphatase Total Creatine Kinase CK-MB (CK-2) Rel Index Troponin T Albumin LDL Cholesterol Direct PTH Intact Salicylates Acetaminophen Crossmatch 03/23/19 03/23/19 03/23/19 05:21 11:36 11:36 WBC RBC Hgb 7.9 L Hct 25.0 L MCV MCH MCHC RDW Lymph % (Auto) [place] % (Auto) Eos % (Auto) Lymph # [place] # Eos # Seg Neutrophils % Seg Neuts % (Manual) Lymphocytes % (Manual) Eosinophils % (Manual) Seg Neutrophils # Lymphocytes # (Manual) Eosinophils # (Manual) PT INR D-Dimer POC ABG pH POC ABG pCO2 POC ABG pO2 ABG pO2 ABG HCO3 ABG Base Excess ABG Hemoglobin Oxyhemoglobin Sodium Potassium Chloride Carbon Dioxide BUN Creatinine Glucose POC Glucose 132 H 147 H Calcium Phosphorus Magnesium ALT Alkaline Phosphatase Total Creatine Kinase CK-MB (CK-2) Rel Index Troponin T Albumin LDL Cholesterol Direct PTH Intact Salicylates Acetaminophen Crossmatch 03/23/19 03/24/19 03/24/19 17:31 01:22 04:20 WBC 12.2 H RBC 3.05 L Hgb 8.3 L Hct 25.9 L MCV MCH 27 L MCHC RDW 18.7 H Lymph % (Auto) [place] % (Auto) Eos % (Auto) Lymph # [place] # Eos # Seg Neutrophils % Seg Neuts % (Manual) Lymphocytes % (Manual) Eosinophils % (Manual) Seg Neutrophils # Lymphocytes # (Manual) Eosinophils # (Manual) PT INR D-Dimer POC ABG pH POC ABG pCO2 POC ABG pO2 ABG pO2 ABG HCO3 ABG Base Excess ABG Hemoglobin Oxyhemoglobin Sodium Potassium Chloride Carbon Dioxide BUN Creatinine Glucose POC Glucose 182 H 113 H Calcium Phosphorus Magnesium ALT Alkaline Phosphatase Total Creatine Kinase CK-MB (CK-2) Rel Index Troponin T Albumin LDL Cholesterol Direct PTH Intact Salicylates Acetaminophen Crossmatch 03/24/19 03/24/19 03/24/19 04:20 11:59 18:14 WBC RBC Hgb Hct MCV MCH MCHC RDW Lymph % (Auto) [place] % (Auto) Eos % (Auto) Lymph # [place] # Eos # Seg Neutrophils % Seg Neuts % (Manual) Lymphocytes % (Manual) Eosinophils % (Manual) Seg Neutrophils # Lymphocytes # (Manual) Eosinophils # (Manual) PT INR D-Dimer POC ABG pH POC ABG pCO2 POC ABG pO2 ABG pO2 ABG HCO3 ABG Base Excess ABG Hemoglobin Oxyhemoglobin Sodium Potassium Chloride 94.8 L Carbon Dioxide 32 H BUN 53 H Creatinine 2.3 H Glucose POC Glucose 163 H 134 H Calcium Phosphorus Magnesium ALT Alkaline Phosphatase Total Creatine Kinase CK-MB (CK-2) Rel Index Troponin T Albumin LDL Cholesterol Direct PTH Intact Salicylates Acetaminophen Crossmatch 03/24/19 03/25/19 03/25/19 23:15 05:52 12:02 WBC RBC Hgb Hct MCV MCH MCHC RDW Lymph % (Auto) [place] % (Auto) Eos % (Auto) Lymph # [place] # Eos # Seg Neutrophils % Seg Neuts % (Manual) Lymphocytes % (Manual) Eosinophils % (Manual) Seg Neutrophils # Lymphocytes # (Manual) Eosinophils # (Manual) PT INR D-Dimer POC ABG pH POC ABG pCO2 POC ABG pO2 ABG pO2 ABG HCO3 ABG Base Excess ABG Hemoglobin Oxyhemoglobin Sodium Potassium Chloride Carbon Dioxide BUN Creatinine Glucose POC Glucose 129 H 123 H 125 H Calcium Phosphorus Magnesium ALT Alkaline Phosphatase Total Creatine Kinase CK-MB (CK-2) Rel Index Troponin T Albumin LDL Cholesterol Direct PTH Intact Salicylates Acetaminophen Crossmatch 03/25/19 03/26/19 03/26/19 17:27 00:30 05:35 WBC RBC 3.01 L Hgb 8.1 L Hct 25.7 L MCV MCH 27 L MCHC RDW 19.2 H Lymph % (Auto) 11.4 L [place] % (Auto) Eos % (Auto) 8.0 H Lymph # 1.0 L [place] # Eos # 0.7 H Seg Neutrophils % 73.9 H Seg Neuts % (Manual) Lymphocytes % (Manual) Eosinophils % (Manual) Seg Neutrophils # Lymphocytes # (Manual) Eosinophils # (Manual) PT INR D-Dimer POC ABG pH POC ABG pCO2 POC ABG pO2 ABG pO2 ABG HCO3 ABG Base Excess ABG Hemoglobin Oxyhemoglobin Sodium Potassium Chloride Carbon Dioxide BUN Creatinine Glucose POC Glucose 130 H 129 H Calcium Phosphorus Magnesium ALT Alkaline Phosphatase Total Creatine Kinase CK-MB (CK-2) Rel Index Troponin T Albumin LDL Cholesterol Direct PTH Intact Salicylates Acetaminophen Crossmatch 03/26/19 03/26/19 03/26/19 05:35 05:45 12:16 WBC RBC Hgb Hct MCV MCH MCHC RDW Lymph % (Auto) [place] % (Auto) Eos % (Auto) Lymph # [place] # Eos # Seg Neutrophils % Seg Neuts % (Manual) Lymphocytes % (Manual) Eosinophils % (Manual) Seg Neutrophils # Lymphocytes # (Manual) Eosinophils # (Manual) PT INR D-Dimer POC ABG pH POC ABG pCO2 POC ABG pO2 ABG pO2 ABG HCO3 ABG Base Excess ABG Hemoglobin Oxyhemoglobin Sodium Potassium Chloride 94.9 L Carbon Dioxide 31 H BUN 44 H Creatinine 2.0 H Glucose POC Glucose 118 H 107 H Calcium Phosphorus Magnesium ALT Alkaline Phosphatase Total Creatine Kinase CK-MB (CK-2) Rel Index Troponin T Albumin LDL Cholesterol Direct PTH Intact Salicylates Acetaminophen Crossmatch 03/26/19 03/27/19 03/27/19 17:56 00:36 05:37 WBC RBC Hgb Hct MCV MCH MCHC RDW Lymph % (Auto) [place] % (Auto) Eos % (Auto) Lymph # [place] # Eos # Seg Neutrophils % Seg Neuts % (Manual) Lymphocytes % (Manual) Eosinophils % (Manual) Seg Neutrophils # Lymphocytes # (Manual) Eosinophils # (Manual) PT INR D-Dimer POC ABG pH POC ABG pCO2 POC ABG pO2 ABG pO2 ABG HCO3 ABG Base Excess ABG Hemoglobin Oxyhemoglobin Sodium Potassium Chloride Carbon Dioxide BUN Creatinine Glucose POC Glucose 107 H 110 H 122 H Calcium Phosphorus Magnesium ALT Alkaline Phosphatase Total Creatine Kinase CK-MB (CK-2) Rel Index Troponin T Albumin LDL Cholesterol Direct PTH Intact Salicylates Acetaminophen Crossmatch 03/27/19 03/27/19 03/28/19 11:22 18:00 05:17 WBC RBC Hgb Hct MCV MCH MCHC RDW Lymph % (Auto) [place] % (Auto) Eos % (Auto) Lymph # [place] # Eos # Seg Neutrophils % Seg Neuts % (Manual) Lymphocytes % (Manual) Eosinophils % (Manual) Seg Neutrophils # Lymphocytes # (Manual) Eosinophils # (Manual) PT INR D-Dimer POC ABG pH POC ABG pCO2 POC ABG pO2 ABG pO2 ABG HCO3 ABG Base Excess ABG Hemoglobin Oxyhemoglobin Sodium Potassium Chloride Carbon Dioxide BUN Creatinine Glucose POC Glucose 120 H 111 H 107 H Calcium Phosphorus Magnesium ALT Alkaline Phosphatase Total Creatine Kinase CK-MB (CK-2) Rel Index Troponin T Albumin LDL Cholesterol Direct PTH Intact Salicylates Acetaminophen Crossmatch 03/28/19 03/28/19 03/29/19 12:27 18:08 05:47 WBC RBC Hgb Hct MCV MCH MCHC RDW Lymph % (Auto) [place] % (Auto) Eos % (Auto) Lymph # [place] # Eos # Seg Neutrophils % Seg Neuts % (Manual) Lymphocytes % (Manual) Eosinophils % (Manual) Seg Neutrophils # Lymphocytes # (Manual) Eosinophils # (Manual) PT INR D-Dimer POC ABG pH POC ABG pCO2 POC ABG pO2 ABG pO2 ABG HCO3 ABG Base Excess ABG Hemoglobin Oxyhemoglobin Sodium Potassium Chloride Carbon Dioxide BUN Creatinine Glucose POC Glucose 114 H 121 H 112 H Calcium Phosphorus Magnesium ALT Alkaline Phosphatase Total Creatine Kinase CK-MB (CK-2) Rel Index Troponin T Albumin LDL Cholesterol Direct PTH Intact Salicylates Acetaminophen Crossmatch 03/29/19 03/29/19 03/30/19 12:14 18:08 00:31 WBC RBC Hgb Hct MCV MCH MCHC RDW Lymph % (Auto) [place] % (Auto) Eos % (Auto) Lymph # [place] # Eos # Seg Neutrophils % Seg Neuts % (Manual) Lymphocytes % (Manual) Eosinophils % (Manual) Seg Neutrophils # Lymphocytes # (Manual) Eosinophils # (Manual) PT INR D-Dimer POC ABG pH POC ABG pCO2 POC ABG pO2 ABG pO2 ABG HCO3 ABG Base Excess ABG Hemoglobin Oxyhemoglobin Sodium Potassium Chloride Carbon Dioxide BUN Creatinine Glucose POC Glucose 117 H 140 H 114 H Calcium Phosphorus Magnesium ALT Alkaline Phosphatase Total Creatine Kinase CK-MB (CK-2) Rel Index Troponin T Albumin LDL Cholesterol Direct PTH Intact Salicylates Acetaminophen Crossmatch 03/30/19 03/30/19 03/30/19 10:13 10:13 23:53 WBC RBC 2.81 L Hgb 7.7 L Hct 24.3 L MCV MCH 27 L MCHC RDW 19.0 H Lymph % (Auto) 12.2 L [place] % (Auto) Eos % (Auto) 7.9 H Lymph # 1.0 L [place] # Eos # 0.6 H Seg Neutrophils % 72.3 H Seg Neuts % (Manual) Lymphocytes % (Manual) Eosinophils % (Manual) Seg Neutrophils # Lymphocytes # (Manual) Eosinophils # (Manual) PT INR D-Dimer POC ABG pH POC ABG pCO2 POC ABG pO2 ABG pO2 ABG HCO3 ABG Base Excess ABG Hemoglobin Oxyhemoglobin Sodium Potassium 5.1 H Chloride 96.5 L Carbon Dioxide BUN 73 H Creatinine 3.9 H D Glucose POC Glucose 114 H Calcium 10.3 H Phosphorus 6.30 H Magnesium 2.70 H ALT Alkaline Phosphatase 185 H Total Creatine Kinase CK-MB (CK-2) Rel Index Troponin T Albumin 2.6 L LDL Cholesterol Direct PTH Intact Salicylates Acetaminophen Crossmatch 03/31/19 03/31/19 03/31/19 05:45 10:26 10:26 WBC RBC 3.01 L Hgb 8.2 L Hct 26.4 L MCV MCH 27 L MCHC 31 L RDW 20.3 H Lymph % (Auto) 13.3 L [place] % (Auto) Eos % (Auto) 7.2 H Lymph # 1.1 L [place] # Eos # 0.6 H Seg Neutrophils % 72.1 H Seg Neuts % (Manual) Lymphocytes % (Manual) Eosinophils % (Manual) Seg Neutrophils # Lymphocytes # (Manual) Eosinophils # (Manual) PT INR D-Dimer POC ABG pH POC ABG pCO2 POC ABG pO2 ABG pO2 ABG HCO3 ABG Base Excess ABG Hemoglobin Oxyhemoglobin Sodium Potassium Chloride 96.9 L Carbon Dioxide 33 H BUN 37 H Creatinine 2.4 H Glucose POC Glucose 108 H Calcium 10.3 H Phosphorus Magnesium ALT Alkaline Phosphatase Total Creatine Kinase CK-MB (CK-2) Rel Index Troponin T Albumin LDL Cholesterol Direct PTH Intact Salicylates Acetaminophen Crossmatch 03/31/19 04/01/19 04/01/19 12:38 05:48 12:06 WBC RBC Hgb Hct MCV MCH MCHC RDW Lymph % (Auto) [place] % (Auto) Eos % (Auto) Lymph # [place] # Eos # Seg Neutrophils % Seg Neuts % (Manual) Lymphocytes % (Manual) Eosinophils % (Manual) Seg Neutrophils # Lymphocytes # (Manual) Eosinophils # (Manual) PT INR D-Dimer POC ABG pH POC ABG pCO2 POC ABG pO2 ABG pO2 ABG HCO3 ABG Base Excess ABG Hemoglobin Oxyhemoglobin Sodium Potassium Chloride Carbon Dioxide BUN Creatinine Glucose POC Glucose 108 H 114 H 111 H Calcium Phosphorus Magnesium ALT Alkaline Phosphatase Total Creatine Kinase CK-MB (CK-2) Rel Index Troponin T Albumin LDL Cholesterol Direct PTH Intact Salicylates Acetaminophen Crossmatch 04/01/19 04/02/19 04/04/19 18:24 00:36 23:55 WBC RBC Hgb Hct MCV MCH MCHC RDW Lymph % (Auto) [place] % (Auto) Eos % (Auto) Lymph # [place] # Eos # Seg Neutrophils % Seg Neuts % (Manual) Lymphocytes % (Manual) Eosinophils % (Manual) Seg Neutrophils # Lymphocytes # (Manual) Eosinophils # (Manual) PT INR D-Dimer POC ABG pH POC ABG pCO2 POC ABG pO2 ABG pO2 ABG HCO3 ABG Base Excess ABG Hemoglobin Oxyhemoglobin Sodium Potassium Chloride Carbon Dioxide BUN Creatinine Glucose POC Glucose 113 H 117 H 109 H Calcium Phosphorus Magnesium ALT Alkaline Phosphatase Total Creatine Kinase CK-MB (CK-2) Rel Index Troponin T Albumin LDL Cholesterol Direct PTH Intact Salicylates Acetaminophen Crossmatch 04/06/19 04/06/19 04/06/19 00:11 06:02 23:30 WBC RBC Hgb Hct MCV MCH MCHC RDW Lymph % (Auto) [place] % (Auto) Eos % (Auto) Lymph # [place] # Eos # Seg Neutrophils % Seg Neuts % (Manual) Lymphocytes % (Manual) Eosinophils % (Manual) Seg Neutrophils # Lymphocytes # (Manual) Eosinophils # (Manual) PT INR D-Dimer POC ABG pH POC ABG pCO2 POC ABG pO2 ABG pO2 ABG HCO3 ABG Base Excess ABG Hemoglobin Oxyhemoglobin Sodium Potassium Chloride Carbon Dioxide BUN Creatinine Glucose POC Glucose 116 H 112 H 112 H Calcium Phosphorus Magnesium ALT Alkaline Phosphatase Total Creatine Kinase CK-MB (CK-2) Rel Index Troponin T Albumin LDL Cholesterol Direct PTH Intact Salicylates Acetaminophen Crossmatch 04/08/19 04/08/19 04/08/19 02:23 06:19 13:01 WBC RBC Hgb Hct MCV MCH MCHC RDW Lymph % (Auto) [place] % (Auto) Eos % (Auto) Lymph # [place] # Eos # Seg Neutrophils % Seg Neuts % (Manual) Lymphocytes % (Manual) Eosinophils % (Manual) Seg Neutrophils # Lymphocytes # (Manual) Eosinophils # (Manual) PT INR D-Dimer POC ABG pH POC ABG pCO2 POC ABG pO2 ABG pO2 ABG HCO3 ABG Base Excess ABG Hemoglobin Oxyhemoglobin Sodium Potassium Chloride Carbon Dioxide BUN Creatinine Glucose POC Glucose 144 H 126 H 118 H Calcium Phosphorus Magnesium ALT Alkaline Phosphatase Total Creatine Kinase CK-MB (CK-2) Rel Index Troponin T Albumin LDL Cholesterol Direct PTH Intact Salicylates Acetaminophen Crossmatch 04/08/19 04/09/19 04/10/19 23:28 05:52 06:34 WBC RBC Hgb Hct MCV MCH MCHC RDW Lymph % (Auto) [place] % (Auto) Eos % (Auto) Lymph # [place] # Eos # Seg Neutrophils % Seg Neuts % (Manual) Lymphocytes % (Manual) Eosinophils % (Manual) Seg Neutrophils # Lymphocytes # (Manual) Eosinophils # (Manual) PT INR D-Dimer POC ABG pH POC ABG pCO2 POC ABG pO2 ABG pO2 ABG HCO3 ABG Base Excess ABG Hemoglobin Oxyhemoglobin Sodium Potassium Chloride Carbon Dioxide BUN Creatinine Glucose POC Glucose 119 H 116 H 114 H Calcium Phosphorus Magnesium ALT Alkaline Phosphatase Total Creatine Kinase CK-MB (CK-2) Rel Index Troponin T Albumin LDL Cholesterol Direct PTH Intact Salicylates Acetaminophen Crossmatch 04/10/19 04/10/19 04/11/19 12:34 18:59 00:36 WBC RBC Hgb Hct MCV MCH MCHC RDW Lymph % (Auto) [place] % (Auto) Eos % (Auto) Lymph # [place] # Eos # Seg Neutrophils % Seg Neuts % (Manual) Lymphocytes % (Manual) Eosinophils % (Manual) Seg Neutrophils # Lymphocytes # (Manual) Eosinophils # (Manual) PT INR D-Dimer POC ABG pH POC ABG pCO2 POC ABG pO2 ABG pO2 ABG HCO3 ABG Base Excess ABG Hemoglobin Oxyhemoglobin Sodium Potassium Chloride Carbon Dioxide BUN Creatinine Glucose POC Glucose 112 H 109 H 124 H Calcium Phosphorus Magnesium ALT Alkaline Phosphatase Total Creatine Kinase CK-MB (CK-2) Rel Index Troponin T Albumin LDL Cholesterol Direct PTH Intact Salicylates Acetaminophen Crossmatch 04/11/19 04/11/19 04/12/19 08:01 17:25 02:18 WBC RBC Hgb Hct MCV MCH MCHC RDW Lymph % (Auto) [place] % (Auto) Eos % (Auto) Lymph # [place] # Eos # Seg Neutrophils % Seg Neuts % (Manual) Lymphocytes % (Manual) Eosinophils % (Manual) Seg Neutrophils # Lymphocytes # (Manual) Eosinophils # (Manual) PT INR D-Dimer POC ABG pH POC ABG pCO2 POC ABG pO2 ABG pO2 ABG HCO3 ABG Base Excess ABG Hemoglobin Oxyhemoglobin Sodium Potassium Chloride Carbon Dioxide BUN Creatinine Glucose POC Glucose 118 H 106 H 125 H Calcium Phosphorus Magnesium ALT Alkaline Phosphatase Total Creatine Kinase CK-MB (CK-2) Rel Index Troponin T Albumin LDL Cholesterol Direct PTH Intact Salicylates Acetaminophen Crossmatch 04/12/19 04/12/19 04/12/19 06:24 12:22 17:13 WBC RBC Hgb Hct MCV MCH MCHC RDW Lymph % (Auto) [place] % (Auto) Eos % (Auto) Lymph # [place] # Eos # Seg Neutrophils % Seg Neuts % (Manual) Lymphocytes % (Manual) Eosinophils % (Manual) Seg Neutrophils # Lymphocytes # (Manual) Eosinophils # (Manual) PT INR D-Dimer POC ABG pH POC ABG pCO2 POC ABG pO2 ABG pO2 ABG HCO3 ABG Base Excess ABG Hemoglobin Oxyhemoglobin Sodium Potassium Chloride Carbon Dioxide BUN Creatinine Glucose POC Glucose 128 H 114 H 110 H Calcium Phosphorus Magnesium ALT Alkaline Phosphatase Total Creatine Kinase CK-MB (CK-2) Rel Index Troponin T Albumin LDL Cholesterol Direct PTH Intact Salicylates Acetaminophen Crossmatch 04/13/19 04/13/19 04/13/19 06:59 07:31 07:31 WBC RBC 3.34 L Hgb 8.9 L Hct 28.6 L MCV MCH 27 L MCHC 31 L RDW 19.6 H Lymph % (Auto) [place] % (Auto) Eos % (Auto) Lymph # [place] # Eos # Seg Neutrophils % Seg Neuts % (Manual) Lymphocytes % (Manual) Eosinophils % (Manual) Seg Neutrophils # Lymphocytes # (Manual) Eosinophils # (Manual) PT INR D-Dimer POC ABG pH POC ABG pCO2 POC ABG pO2 ABG pO2 ABG HCO3 ABG Base Excess ABG Hemoglobin Oxyhemoglobin Sodium Potassium Chloride 96.4 L Carbon Dioxide 33 H BUN 66 H Creatinine 4.5 H Glucose 103 H POC Glucose 107 H Calcium Phosphorus Magnesium ALT Alkaline Phosphatase Total Creatine Kinase CK-MB (CK-2) Rel Index Troponin T Albumin LDL Cholesterol Direct PTH Intact Salicylates Acetaminophen Crossmatch 04/13/19 04/14/19 04/14/19 23:43 05:50 13:07 WBC RBC Hgb Hct MCV MCH MCHC RDW Lymph % (Auto) [place] % (Auto) Eos % (Auto) Lymph # [place] # Eos # Seg Neutrophils % Seg Neuts % (Manual) Lymphocytes % (Manual) Eosinophils % (Manual) Seg Neutrophils # Lymphocytes # (Manual) Eosinophils # (Manual) PT INR D-Dimer POC ABG pH POC ABG pCO2 POC ABG pO2 ABG pO2 ABG HCO3 ABG Base Excess ABG Hemoglobin Oxyhemoglobin Sodium Potassium Chloride Carbon Dioxide BUN Creatinine Glucose POC Glucose 119 H 112 H 112 H Calcium Phosphorus Magnesium ALT Alkaline Phosphatase Total Creatine Kinase CK-MB (CK-2) Rel Index Troponin T Albumin LDL Cholesterol Direct PTH Intact Salicylates Acetaminophen Crossmatch 04/14/19 04/15/19 04/15/19 18:35 01:18 05:17 WBC RBC Hgb Hct MCV MCH MCHC RDW Lymph % (Auto) [place] % (Auto) Eos % (Auto) Lymph # [place] # Eos # Seg Neutrophils % Seg Neuts % (Manual) Lymphocytes % (Manual) Eosinophils % (Manual) Seg Neutrophils # Lymphocytes # (Manual) Eosinophils # (Manual) PT INR D-Dimer POC ABG pH POC ABG pCO2 POC ABG pO2 ABG pO2 ABG HCO3 ABG Base Excess ABG Hemoglobin Oxyhemoglobin Sodium Potassium Chloride Carbon Dioxide BUN Creatinine Glucose POC Glucose 114 H 114 H 114 H Calcium Phosphorus Magnesium ALT Alkaline Phosphatase Total Creatine Kinase CK-MB (CK-2) Rel Index Troponin T Albumin LDL Cholesterol Direct PTH Intact Salicylates Acetaminophen Crossmatch 04/15/19 04/15/19 04/16/19 11:50 23:39 05:41 WBC RBC Hgb Hct MCV MCH MCHC RDW Lymph % (Auto) [place] % (Auto) Eos % (Auto) Lymph # [place] # Eos # Seg Neutrophils % Seg Neuts % (Manual) Lymphocytes % (Manual) Eosinophils % (Manual) Seg Neutrophils # Lymphocytes # (Manual) Eosinophils # (Manual) PT INR D-Dimer POC ABG pH POC ABG pCO2 POC ABG pO2 ABG pO2 ABG HCO3 ABG Base Excess ABG Hemoglobin Oxyhemoglobin Sodium Potassium Chloride Carbon Dioxide BUN Creatinine Glucose POC Glucose 109 H 115 H 125 H Calcium Phosphorus Magnesium ALT Alkaline Phosphatase Total Creatine Kinase CK-MB (CK-2) Rel Index Troponin T Albumin LDL Cholesterol Direct PTH Intact Salicylates Acetaminophen Crossmatch 04/16/19 04/17/19 04/17/19 12:53 01:00 12:38 WBC RBC Hgb Hct MCV MCH MCHC RDW Lymph % (Auto) [place] % (Auto) Eos % (Auto) Lymph # [place] # Eos # Seg Neutrophils % Seg Neuts % (Manual) Lymphocytes % (Manual) Eosinophils % (Manual) Seg Neutrophils # Lymphocytes # (Manual) Eosinophils # (Manual) PT INR D-Dimer POC ABG pH POC ABG pCO2 POC ABG pO2 ABG pO2 ABG HCO3 ABG Base Excess ABG Hemoglobin Oxyhemoglobin Sodium Potassium Chloride Carbon Dioxide BUN Creatinine Glucose POC Glucose 121 H 127 H 159 H Calcium Phosphorus Magnesium ALT Alkaline Phosphatase Total Creatine Kinase CK-MB (CK-2) Rel Index Troponin T Albumin LDL Cholesterol Direct PTH Intact Salicylates Acetaminophen Crossmatch 04/17/19 04/17/19 04/18/19 18:27 23:36 07:19 WBC RBC 3.49 L Hgb 9.0 L Hct 29.9 L MCV MCH 26 L MCHC 30 L RDW 20.0 H Lymph % (Auto) [place] % (Auto) Eos % (Auto) Lymph # [place] # Eos # Seg Neutrophils % Seg Neuts % (Manual) Lymphocytes % (Manual) Eosinophils % (Manual) Seg Neutrophils # Lymphocytes # (Manual) Eosinophils # (Manual) PT INR D-Dimer POC ABG pH POC ABG pCO2 POC ABG pO2 ABG pO2 ABG HCO3 ABG Base Excess ABG Hemoglobin Oxyhemoglobin Sodium Potassium Chloride Carbon Dioxide BUN Creatinine Glucose POC Glucose 109 H 134 H Calcium Phosphorus Magnesium ALT Alkaline Phosphatase Total Creatine Kinase CK-MB (CK-2) Rel Index Troponin T Albumin LDL Cholesterol Direct PTH Intact Salicylates Acetaminophen Crossmatch 04/18/19 04/18/19 04/18/19 07:19 12:16 17:09 WBC RBC Hgb Hct MCV MCH MCHC RDW Lymph % (Auto) [place] % (Auto) Eos % (Auto) Lymph # [place] # Eos # Seg Neutrophils % Seg Neuts % (Manual) Lymphocytes % (Manual) Eosinophils % (Manual) Seg Neutrophils # Lymphocytes # (Manual) Eosinophils # (Manual) PT INR D-Dimer POC ABG pH POC ABG pCO2 POC ABG pO2 ABG pO2 ABG HCO3 ABG Base Excess ABG Hemoglobin Oxyhemoglobin Sodium Potassium Chloride Carbon Dioxide BUN 41 H Creatinine 2.9 H Glucose 122 H POC Glucose 125 H 131 H Calcium Phosphorus Magnesium ALT Alkaline Phosphatase Total Creatine Kinase CK-MB (CK-2) Rel Index Troponin T Albumin LDL Cholesterol Direct PTH Intact Salicylates Acetaminophen Crossmatch 04/18/19 04/19/19 04/19/19 23:57 05:55 11:35 WBC RBC Hgb Hct MCV MCH MCHC RDW Lymph % (Auto) [place] % (Auto) Eos % (Auto) Lymph # [place] # Eos # Seg Neutrophils % Seg Neuts % (Manual) Lymphocytes % (Manual) Eosinophils % (Manual) Seg Neutrophils # Lymphocytes # (Manual) Eosinophils # (Manual) PT INR D-Dimer POC ABG pH POC ABG pCO2 POC ABG pO2 ABG pO2 ABG HCO3 ABG Base Excess ABG Hemoglobin Oxyhemoglobin Sodium Potassium Chloride Carbon Dioxide BUN Creatinine Glucose POC Glucose 159 H 144 H 177 H Calcium Phosphorus Magnesium ALT Alkaline Phosphatase Total Creatine Kinase CK-MB (CK-2) Rel Index Troponin T Albumin LDL Cholesterol Direct PTH Intact Salicylates Acetaminophen Crossmatch 04/19/19 04/20/19 04/20/19 16:36 02:05 06:28 WBC RBC Hgb Hct MCV MCH MCHC RDW Lymph % (Auto) [place] % (Auto) Eos % (Auto) Lymph # [place] # Eos # Seg Neutrophils % Seg Neuts % (Manual) Lymphocytes % (Manual) Eosinophils % (Manual) Seg Neutrophils # Lymphocytes # (Manual) Eosinophils # (Manual) PT INR D-Dimer POC ABG pH POC ABG pCO2 POC ABG pO2 ABG pO2 ABG HCO3 ABG Base Excess ABG Hemoglobin Oxyhemoglobin Sodium Potassium Chloride Carbon Dioxide BUN Creatinine Glucose POC Glucose 134 H 142 H 132 H Calcium Phosphorus Magnesium ALT Alkaline Phosphatase Total Creatine Kinase CK-MB (CK-2) Rel Index Troponin T Albumin LDL Cholesterol Direct PTH Intact Salicylates Acetaminophen Crossmatch 04/20/19 04/20/19 04/21/19 12:37 23:34 05:59 WBC RBC Hgb Hct MCV MCH MCHC RDW Lymph % (Auto) [place] % (Auto) Eos % (Auto) Lymph # [place] # Eos # Seg Neutrophils % Seg Neuts % (Manual) Lymphocytes % (Manual) Eosinophils % (Manual) Seg Neutrophils # Lymphocytes # (Manual) Eosinophils # (Manual) PT INR D-Dimer POC ABG pH POC ABG pCO2 POC ABG pO2 ABG pO2 ABG HCO3 ABG Base Excess ABG Hemoglobin Oxyhemoglobin Sodium Potassium Chloride Carbon Dioxide BUN Creatinine Glucose POC Glucose 163 H 166 H 140 H Calcium Phosphorus Magnesium ALT Alkaline Phosphatase Total Creatine Kinase CK-MB (CK-2) Rel Index Troponin T Albumin LDL Cholesterol Direct PTH Intact Salicylates Acetaminophen Crossmatch 04/21/19 04/21/19 04/21/19 12:07 17:22 23:43 WBC RBC Hgb Hct MCV MCH MCHC RDW Lymph % (Auto) [place] % (Auto) Eos % (Auto) Lymph # [place] # Eos # Seg Neutrophils % Seg Neuts % (Manual) Lymphocytes % (Manual) Eosinophils % (Manual) Seg Neutrophils # Lymphocytes # (Manual) Eosinophils # (Manual) PT INR D-Dimer POC ABG pH POC ABG pCO2 POC ABG pO2 ABG pO2 ABG HCO3 ABG Base Excess ABG Hemoglobin Oxyhemoglobin Sodium Potassium Chloride Carbon Dioxide BUN Creatinine Glucose POC Glucose 135 H 141 H 138 H Calcium Phosphorus Magnesium ALT Alkaline Phosphatase Total Creatine Kinase CK-MB (CK-2) Rel Index Troponin T Albumin LDL Cholesterol Direct PTH Intact Salicylates Acetaminophen Crossmatch 04/22/19 04/22/19 04/22/19 05:12 18:24 23:49 WBC RBC Hgb Hct MCV MCH MCHC RDW Lymph % (Auto) [place] % (Auto) Eos % (Auto) Lymph # [place] # Eos # Seg Neutrophils % Seg Neuts % (Manual) Lymphocytes % (Manual) Eosinophils % (Manual) Seg Neutrophils # Lymphocytes # (Manual) Eosinophils # (Manual) PT INR D-Dimer POC ABG pH POC ABG pCO2 POC ABG pO2 ABG pO2 ABG HCO3 ABG Base Excess ABG Hemoglobin Oxyhemoglobin Sodium Potassium Chloride Carbon Dioxide BUN Creatinine Glucose POC Glucose 141 H 137 H 142 H Calcium Phosphorus Magnesium ALT Alkaline Phosphatase Total Creatine Kinase CK-MB (CK-2) Rel Index Troponin T Albumin LDL Cholesterol Direct PTH Intact Salicylates Acetaminophen Crossmatch 04/23/19 04/23/19 04/23/19 05:53 08:13 11:58 WBC RBC Hgb Hct MCV MCH MCHC RDW Lymph % (Auto) [place] % (Auto) Eos % (Auto) Lymph # [place] # Eos # Seg Neutrophils % Seg Neuts % (Manual) Lymphocytes % (Manual) Eosinophils % (Manual) Seg Neutrophils # Lymphocytes # (Manual) Eosinophils # (Manual) PT INR D-Dimer POC ABG pH POC ABG pCO2 POC ABG pO2 ABG pO2 ABG HCO3 ABG Base Excess ABG Hemoglobin Oxyhemoglobin Sodium Potassium Chloride Carbon Dioxide BUN Creatinine Glucose POC Glucose 132 H 154 H 165 H Calcium Phosphorus Magnesium ALT Alkaline Phosphatase Total Creatine Kinase CK-MB (CK-2) Rel Index Troponin T Albumin LDL Cholesterol Direct PTH Intact Salicylates Acetaminophen Crossmatch 04/23/19 04/24/19 04/24/19 16:28 00:28 07:00 WBC RBC Hgb Hct MCV MCH MCHC RDW Lymph % (Auto) [place] % (Auto) Eos % (Auto) Lymph # [place] # Eos # Seg Neutrophils % Seg Neuts % (Manual) Lymphocytes % (Manual) Eosinophils % (Manual) Seg Neutrophils # Lymphocytes # (Manual) Eosinophils # (Manual) PT INR D-Dimer POC ABG pH POC ABG pCO2 POC ABG pO2 ABG pO2 ABG HCO3 ABG Base Excess ABG Hemoglobin Oxyhemoglobin Sodium Potassium Chloride Carbon Dioxide BUN Creatinine Glucose POC Glucose 136 H 140 H 141 H Calcium Phosphorus Magnesium ALT Alkaline Phosphatase Total Creatine Kinase CK-MB (CK-2) Rel Index Troponin T Albumin LDL Cholesterol Direct PTH Intact Salicylates Acetaminophen Crossmatch 04/24/19 04/24/19 04/25/19 12:38 18:57 00:38 WBC RBC Hgb Hct MCV MCH MCHC RDW Lymph % (Auto) [place] % (Auto) Eos % (Auto) Lymph # [place] # Eos # Seg Neutrophils % Seg Neuts % (Manual) Lymphocytes % (Manual) Eosinophils % (Manual) Seg Neutrophils # Lymphocytes # (Manual) Eosinophils # (Manual) PT INR D-Dimer POC ABG pH POC ABG pCO2 POC ABG pO2 ABG pO2 ABG HCO3 ABG Base Excess ABG Hemoglobin Oxyhemoglobin Sodium Potassium Chloride Carbon Dioxide BUN Creatinine Glucose POC Glucose 152 H 166 H 128 H Calcium Phosphorus Magnesium ALT Alkaline Phosphatase Total Creatine Kinase CK-MB (CK-2) Rel Index Troponin T Albumin LDL Cholesterol Direct PTH Intact Salicylates Acetaminophen Crossmatch 04/25/19 04/25/19 04/25/19 05:44 13:43 18:34 WBC RBC Hgb Hct MCV MCH MCHC RDW Lymph % (Auto) [place] % (Auto) Eos % (Auto) Lymph # [place] # Eos # Seg Neutrophils % Seg Neuts % (Manual) Lymphocytes % (Manual) Eosinophils % (Manual) Seg Neutrophils # Lymphocytes # (Manual) Eosinophils # (Manual) PT INR D-Dimer POC ABG pH POC ABG pCO2 POC ABG pO2 ABG pO2 ABG HCO3 ABG Base Excess ABG Hemoglobin Oxyhemoglobin Sodium Potassium Chloride Carbon Dioxide BUN Creatinine Glucose POC Glucose 153 H 186 H 124 H Calcium Phosphorus Magnesium ALT Alkaline Phosphatase Total Creatine Kinase CK-MB (CK-2) Rel Index Troponin T Albumin LDL Cholesterol Direct PTH Intact Salicylates Acetaminophen Crossmatch 04/26/19 04/26/19 04/26/19 00:59 05:52 10:12 WBC 11.5 H RBC 2.84 L Hgb 7.4 L Hct 23.3 L MCV 82 L MCH 26 L MCHC RDW 20.3 H Lymph % (Auto) 7.5 L [place] % (Auto) 7.5 H Eos % (Auto) 5.3 H Lymph # 0.9 L [place] # 0.9 H Eos # 0.6 H Seg Neutrophils % 79.2 H Seg Neuts % (Manual) Lymphocytes % (Manual) Eosinophils % (Manual) Seg Neutrophils # 9.1 H Lymphocytes # (Manual) Eosinophils # (Manual) PT INR D-Dimer POC ABG pH POC ABG pCO2 POC ABG pO2 ABG pO2 ABG HCO3 ABG Base Excess ABG Hemoglobin Oxyhemoglobin Sodium Potassium Chloride Carbon Dioxide BUN Creatinine Glucose POC Glucose 163 H 146 H Calcium Phosphorus Magnesium ALT Alkaline Phosphatase Total Creatine Kinase CK-MB (CK-2) Rel Index Troponin T Albumin LDL Cholesterol Direct PTH Intact Salicylates Acetaminophen Crossmatch 04/26/19 04/26/19 04/26/19 10:12 12:15 19:00 WBC RBC Hgb Hct MCV MCH MCHC RDW Lymph % (Auto) [place] % (Auto) Eos % (Auto) Lymph # [place] # Eos # Seg Neutrophils % Seg Neuts % (Manual) Lymphocytes % (Manual) Eosinophils % (Manual) Seg Neutrophils # Lymphocytes # (Manual) Eosinophils # (Manual) PT INR D-Dimer POC ABG pH POC ABG pCO2 POC ABG pO2 ABG pO2 ABG HCO3 ABG Base Excess ABG Hemoglobin Oxyhemoglobin Sodium 130 L Potassium Chloride 87.4 L Carbon Dioxide BUN 93 H Creatinine 4.2 H Glucose 140 H POC Glucose 155 H 179 H Calcium Phosphorus Magnesium ALT Alkaline Phosphatase Total Creatine Kinase CK-MB (CK-2) Rel Index Troponin T Albumin LDL Cholesterol Direct PTH Intact Salicylates Acetaminophen Crossmatch 04/27/19 04/27/19 04/27/19 00:23 06:34 17:13 WBC RBC Hgb Hct MCV MCH MCHC RDW Lymph % (Auto) [place] % (Auto) Eos % (Auto) Lymph # [place] # Eos # Seg Neutrophils % Seg Neuts % (Manual) Lymphocytes % (Manual) Eosinophils % (Manual) Seg Neutrophils # Lymphocytes # (Manual) Eosinophils # (Manual) PT INR D-Dimer POC ABG pH POC ABG pCO2 POC ABG pO2 ABG pO2 ABG HCO3 ABG Base Excess ABG Hemoglobin Oxyhemoglobin Sodium Potassium Chloride Carbon Dioxide BUN Creatinine Glucose POC Glucose 158 H 140 H 152 H Calcium Phosphorus Magnesium ALT Alkaline Phosphatase Total Creatine Kinase CK-MB (CK-2) Rel Index Troponin T Albumin LDL Cholesterol Direct PTH Intact Salicylates Acetaminophen Crossmatch 04/27/19 04/28/19 04/28/19 23:50 05:18 11:37 WBC RBC Hgb Hct MCV MCH MCHC RDW Lymph % (Auto) [place] % (Auto) Eos % (Auto) Lymph # [place] # Eos # Seg Neutrophils % Seg Neuts % (Manual) Lymphocytes % (Manual) Eosinophils % (Manual) Seg Neutrophils # Lymphocytes # (Manual) Eosinophils # (Manual) PT INR D-Dimer POC ABG pH POC ABG pCO2 POC ABG pO2 ABG pO2 ABG HCO3 ABG Base Excess ABG Hemoglobin Oxyhemoglobin Sodium Potassium Chloride Carbon Dioxide BUN Creatinine Glucose POC Glucose 160 H 145 H 177 H Calcium Phosphorus Magnesium ALT Alkaline Phosphatase Total Creatine Kinase CK-MB (CK-2) Rel Index Troponin T Albumin LDL Cholesterol Direct PTH Intact Salicylates Acetaminophen Crossmatch 04/28/19 04/28/19 04/29/19 18:31 23:47 05:50 WBC RBC Hgb Hct MCV MCH MCHC RDW Lymph % (Auto) [place] % (Auto) Eos % (Auto) Lymph # [place] # Eos # Seg Neutrophils % Seg Neuts % (Manual) Lymphocytes % (Manual) Eosinophils % (Manual) Seg Neutrophils # Lymphocytes # (Manual) Eosinophils # (Manual) PT INR D-Dimer POC ABG pH POC ABG pCO2 POC ABG pO2 ABG pO2 ABG HCO3 ABG Base Excess ABG Hemoglobin Oxyhemoglobin Sodium Potassium Chloride Carbon Dioxide BUN Creatinine Glucose POC Glucose 153 H 117 H 177 H Calcium Phosphorus Magnesium ALT Alkaline Phosphatase Total Creatine Kinase CK-MB (CK-2) Rel Index Troponin T Albumin LDL Cholesterol Direct PTH Intact Salicylates Acetaminophen Crossmatch 04/29/19 04/30/19 04/30/19 17:04 01:02 06:42 WBC RBC Hgb Hct MCV MCH MCHC RDW Lymph % (Auto) [place] % (Auto) Eos % (Auto) Lymph # [place] # Eos # Seg Neutrophils % Seg Neuts % (Manual) Lymphocytes % (Manual) Eosinophils % (Manual) Seg Neutrophils # Lymphocytes # (Manual) Eosinophils # (Manual) PT INR D-Dimer POC ABG pH POC ABG pCO2 POC ABG pO2 ABG pO2 ABG HCO3 ABG Base Excess ABG Hemoglobin Oxyhemoglobin Sodium Potassium Chloride Carbon Dioxide BUN Creatinine Glucose POC Glucose 205 H 143 H 145 H Calcium Phosphorus Magnesium ALT Alkaline Phosphatase Total Creatine Kinase CK-MB (CK-2) Rel Index Troponin T Albumin LDL Cholesterol Direct PTH Intact Salicylates Acetaminophen Crossmatch
--- NOTE | 2019-04-30 13:54 | Progress Note ---
Assessment and Plan Assessment and plan: Patient is 63-year-old -Russian male patient from [facility] with multiple co-morbidities including blindness, CVA, CHF, PPM/ICD, loop recorder since 2012 that is MRI compatible, IDDM type 2, sepsis left foot ulcer, afib, ESRD with complications on HD TTS, hypertension, AOCD and GERD who presented to the ED with hypotensive after intubation in the emergency room. diagnosed with fluid overload, pleural effusion. Patient has had recurrent admission in the hospital for similar reason and was recently discharged from the hospital following treatment of Severe Sepsis due to Necrotizing Unstagable sacral decubitus ulcer with ostemomylitis, has received multiple courses of broad spectrum abx. Acute hypoxic respiratory failure, status post intubation and ventilatory support, now off vent, on T-piece Acute respiratory failure on mechanical ventilator >96 hrs Extubated ; history of tracheostomy on T piece Current management , nebulizers, Currently on trach/peg placed on 03/03. Now off vent, cont oxygen supplement, improving, on t piece, nebulizers, pulmonary critical following acute on chronic systolic CHF/ Acute pulmonary edema, HD per schedule Dilated CMP, EF 35-40% Continue diuresis, supportive care Acute metabolic encephalopathy, resolved, has baseline Dementia. --ESRD on hemodialysis per schedule nephrology following --Bilateral pleural effusions improved with HD --Permanent atrial fibrillation and flutter and hypercoaguable state Not on anticoagulation because of anemia thrombocytopenia rate control meds optimized --Diabetes mellitus type 2 Accu-Chek sliding scale coverage Insulin as needed --NSTEMI type 2 , Cardiology following --Schizophrenia:stable --Legally blind, supportive care --hypertension, Monitor BP,'s adjust medications as needed --Hypokalemia; corrected --Pulmonary hypertension; continue current management --Dysphagia s/p PEG tube; PEG tubes per protocol --Sacral decub ulcer; Wound care --Severe malnutrition /hypoalbuminemia with FTT: 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, insole doubler following PEG placed on 01/02/19 --Multiple decubiti, different stages , s/ p colostomy Left 5th finger, stage 4 pressure ulcer Left heel, deep tissue injury Sacrum, stage 4 pressure ulcer POA Continue wound care --History of sacral osteomyelitis and LE ulcers Completed Antibiotics, contact isolation for ESBL Klebsiella pneumonia on wound culture 01/02/19 --Anemia of chronic disease s/p 1 unit of prbc , stable --RUL atelectasis, probably mucous plugging --DVT prophylaxis; Lovenox - COD status; DNR --Very poor prognosis Dispo; Awaiting SNF placement , difficult to place ,unable to find any NH to take patient. History Interval history: Patient was seen and evaluated this morning, Patient is on PEG and trach. No acute events overnight. Hospitalist Physical - Physical exam Narrative exam: Patient is on trach and PEG, ON 5L The patient appeared well nourished and normally developed. Vital signs as documented. Head exam is unremarkable. No scleral icterus . Neck is without jugular venous distension, thyromegaly, or carotid bruits. Lungs are clear to auscultation. Cardiac exam reveals regular rate and Rhythm. First and second heart sounds normal. No murmurs, rubs or gallops. Abdominal exam reveals PEG tube in place, colostomy bag in place. Extremities are nonedematous and both femoral and pedal pulses are normal. 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3 % (13.2-15.2) H 04/26/19 10:12 Plt Count 350 K/mm3 (140-440) 04/26/19 10:12 Lymph % (Auto) 7.5 % (13.4-35.0) L 04/26/19 10:12 Carroll % (Auto) 7.5 % (0.0-7.3) H 04/26/19 10:12 Eos % (Auto) 5.3 % (0.0-4.3) H 04/26/19 10:12 Baso % (Auto) 0.5 % (0.0-1.8) 04/26/19 10:12 Lymph # 0.9 K/mm3 (1.2-5.4) L 04/26/19 10:12 Carroll # 0.9 K/mm3 (0.0-0.8) H 04/26/19 10:12 Eos # 0.6 K/mm3 (0.0-0.4) H 04/26/19 10:12 Baso # 0.1 K/mm3 (0.0-0.1) 04/26/19 10:12 Add Manual Diff Complete 03/21/19 06:30 Total Counted 100 03/21/19 06:30 Seg Neutrophils % 79.2 % (40.0-70.0) H 04/26/19 10:12 Seg Neuts % (Manual) 81.0 % (40.0-70.0) H 03/21/19 06:30 Band Neutrophils % 0 % 03/21/19 06:30 Lymphocytes % (Manual) 8.0 % (13.4-35.0) L 03/21/19 06:30 Reactive Lymphs % (Man) 0 % 03/21/19 06:30 Monocytes % (Manual) 1.0 % (0.0-7.3) 03/21/19 06:30 Eosinophils % (Manual) 8.0 % (0.0-4.3) H 03/21/19 06:30 Basophils % (Manual) 1.0 % (0.0-1.8) 03/21/19 06:30 Metamyelocytes % 1.0 % 03/21/19 06:30 Myelocytes % 0 % 03/21/19 06:30 Promyelocytes % 0 % 03/21/19 06:30 Blast Cells % 0 % 03/21/19 06:30 Nucleated RBC % Not Reportable 03/21/19 06:30 Seg Neutrophils # 9.1 K/mm3 (1.8-7.7) H 04/26/19 10:12 Seg Neutrophils # Man 6.7 K/mm3 (1.8-7.7) 03/21/19 06:30 Band Neutrophils # 0.0 K/mm3 03/21/19 06:30 Lymphocytes # (Manual) 0.7 K/mm3 (1.2-5.4) L 03/21/19 06:30 Abs React Lymphs (Man) 0.0 K/mm3 03/21/19 06:30 Monocytes # (Manual) 0.1 K/mm3 (0.0-0.8) 03/21/19 06:30 Eosinophils # (Manual) 0.7 K/mm3 (0.0-0.4) H 03/21/19 06:30 Basophils # (Manual) 0.1 K/mm3 (0.0-0.1) 03/21/19 06:30 Metamyelocytes # 0.1 K/mm3 03/21/19 06:30 Myelocytes # 0.0 K/mm3 03/21/19 06:30 Promyelocytes # 0.0 K/mm3 03/21/19 06:30 Blast Cells # 0.0 K/mm3 03/21/19 06:30 WBC Morphology Not Reportable 03/21/19 06:30 Hypersegmented Neuts Not Reportable 03/21/19 06:30 Hyposegmented Neuts Not Reportable 03/21/19 06:30 Hypogranular Neuts Not Reportable 03/21/19 06:30 Smudge Cells Not Reportable 03/21/19 06:30 Toxic Granulation Not Reportable 03/21/19 06:30 Toxic Vacuolation Not Reportable 03/21/19 06:30 Dohle Bodies Not Reportable 03/21/19 06:30 Pelger-Huet Anomaly Not Reportable 03/21/19 06:30 Tramaine Rods Not Reportable 03/21/19 06:30 Platelet Estimate Consistent w auto 03/21/19 06:30 Clumped Platelets Not Reportable 03/21/19 06:30 Plt Clumps, EDTA Not Reportable 03/21/19 06:30 Large Platelets Not Reportable 03/21/19 06:30 Giant Platelets Not Reportable 03/21/19 06:30 Platelet Satelliting Not Reportable 03/21/19 06:30 Plt Morphology Comment Not Reportable 03/21/19 06:30 RBC Morphology Not Reportable 03/21/19 06:30 Dimorphic RBCs Not Reportable 03/21/19 06:30 Polychromasia Not Reportable 03/21/19 06:30 Hypochromasia Few 03/21/19 06:30 Poikilocytosis Few 03/21/19 06:30 Anisocytosis Few 03/21/19 06:30 Microcytosis Not Reportable 03/21/19 06:30 Macrocytosis Not Reportable 03/21/19 06:30 Spherocytes Not Reportable 03/21/19 06:30 Pappenheimer Bodies Not Reportable 03/21/19 06:30 Sickle Cells Not Reportable 03/21/19 06:30 Target Cells 1+ 03/21/19 06:30 Tear Drop Cells Not Reportable 03/21/19 06:30 Ovalocytes Few 03/21/19 06:30 Helmet Cells Not Reportable 03/21/19 06:30 Zhou-Zarate Bodies Not Reportable 03/21/19 06:30 [place] Rings Not Reportable 03/21/19 06:30 Hebert Cells Not Reportable 03/21/19 06:30 Bite Cells Not Reportable 03/21/19 06:30 Crenated Cell Not Reportable 03/21/19 06:30 Elliptocytes Not Reportable 03/21/19 06:30 Acanthocytes (Spur) Not Reportable 03/21/19 06:30 Rouleaux Not Reportable 03/21/19 06:30 Hemoglobin C Crystals Not Reportable 03/21/19 06:30 Schistocytes Not Reportable 03/21/19 06:30 Malaria parasites Not Reportable 03/21/19 06:30 Jose Juan Bodies Not Reportable 03/21/19 06:30 Hem Pathologist Commnt No 03/21/19 06:30 PT 16.3 Sec. (12.2-14.9) H 03/01/19 09:39 INR 1.35 (0.87-1.13) H 03/01/19 09:39 APTT 33.7 Sec. (24.2-36.6) 02/21/19 18:30 D-Dimer 2987.82 ng/mlDDU (0-234) H 02/22/19 05:54 POC ABG pH 7.510 (7.35-7.45) H 03/18/19 06:38 ABG pH 7.424 pH Units (7.350-7.450) 03/19/19 04:23 POC ABG pCO2 38.9 (35-45) 03/18/19 06:38 ABG pCO2 48.0 mm Hg 03/19/19 04:23 POC ABG pO2 164 (80-105) H 03/18/19 06:38 ABG pO2 78.3 mm Hg (80.0-90.0) L 03/19/19 04:23 POC ABG HCO3 31.0 (22-26 mml/L) 03/18/19 06:38 ABG HCO3 30.7 mmol/L (20.0-26.0) H 03/19/19 04:23 POC ABG Total CO2 32 (23-27mmol/L) 03/18/19 06:38 POC ABG O2 Sat 100 03/18/19 06:38 ABG O2 Saturation 97.0 % (95.0-99.0) 03/19/19 04:23 ABG O2 Content 7.9 (0.0-44) 03/19/19 04:23 POC ABG Base Excess 8 ((-2) - (+3)mmol/L) 03/18/19 06:38 ABG Base Excess 5.8 mmol/L (-2.0-3.0) H 03/19/19 04:23 ABG Hemoglobin 5.8 gm/dl (14.0-18.0) L 03/19/19 04:23 ABG Carboxyhemoglobin 2.0 % (0.0-5.0) 03/19/19 04:23 ABG Methemoglobin 0.4 % (0.0-1.5) 03/19/19 04:23 Oxyhemoglobin 94.6 % (95.0-99.0) L 03/19/19 04:23 FiO2 35 % 03/19/19 04:23 Sodium 130 mmol/L (137-145) L 04/26/19 10:12 Potassium 4.2 mmol/L (3.6-5.0) 04/26/19 10:12 Chloride 87.4 mmol/L (98-107) L 04/26/19 10:12 Carbon Dioxide 28 mmol/L (22-30) 04/26/19 10:12 Anion Gap 19 mmol/L 04/26/19 10:12 BUN 93 mg/dL (9-20) H 04/26/19 10:12 Creatinine 4.2 mg/dL (0.8-1.5) H 04/26/19 10:12 Estimated GFR 17 ml/min 04/26/19 10:12 BUN/Creatinine Ratio 22 % 04/26/19 10:12 Glucose 140 mg/dL (75-100) H 04/26/19 10:12 POC Glucose 162 (70-105) H 04/30/19 11:31 Lactic Acid 1.00 mmol/L (0.7-2.0) 02/21/19 20:58 Calcium 10.0 mg/dL (8.4-10.2) 04/26/19 10:12 Phosphorus 4.30 mg/dL (2.5-4.5) D 03/31/19 10:26 Magnesium 2.70 mg/dL (1.7-2.3) H 03/30/19 10:13 Total Bilirubin 0.20 mg/dL (0.1-1.2) 03/30/19 10:13 AST 16 units/L (5-40) 03/30/19 10:13 ALT 11 units/L (7-56) 03/30/19 10:13 Alkaline Phosphatase 185 units/L (35-129) H 03/30/19 10:13 Ammonia 28.0 umol/L (25-60) 02/21/19 20:04 Total Creatine Kinase 64 units/L (55-170) 02/22/19 03:42 CK-MB (CK-2) 3.7 ng/mL (0.0-4.0) 02/22/19 03:42 CK-MB (CK-2) Rel Index 5.7 (0-4) H 02/22/19 03:42 Troponin T 0.193 ng/mL (0.00-0.029) H* 02/22/19 03:42 Total Protein 6.9 g/dL (6.3-8.2) 03/30/19 10:13 Albumin 2.6 g/dL (3.9-5) L 03/30/19 10:13 Albumin/Globulin Ratio 0.6 % 03/30/19 10:13 Triglycerides 51 mg/dL (2-149) 02/21/19 18:30 Cholesterol 82 mg/dL (50-199) 02/21/19 18:30 LDL Cholesterol Direct 36 mg/dL (50-130) L 02/21/19 18:30 HDL Cholesterol 40 mg/dL (40-59) 02/21/19 18:30 Cholesterol/HDL Ratio 2.05 % 02/21/19 18:30 TSH 2.760 mlU/mL (0.270-4.200) 02/21/19 20:04 PTH Intact 267.6 pg/mL (15-65) H 03/02/19 05:15 Salicylates < 0.3 mg/dL (2.8-20.0) L 02/21/19 20:04 Acetaminophen < 5.0 ug/mL (10.0-30.0) L 02/21/19 20:04 Hepatitis A IgM Ab Non-reactive (NonReactive) 03/31/19 22:56 Hep Bs Antigen Non-reactive (Negative) 03/31/19 22:56 Hep B Core IgM Ab Non-reactive (NonReactive) 03/31/19 22:56 Hepatitis C Antibody Non-reactive (NonReactive) 03/31/19 22:56 Blood Type O POSITIVE 03/22/19 08:48 Antibody Screen Negative 03/22/19 08:48 Crossmatch See Detail 03/22/19 08:48 Active Medications - Current Medications Current Medications: Generic Name Dose Route Start Last Admin Trade Name Freq PRN Reason Stop Dose Admin Albuterol/Ipratropium 1 ampul 02/24/19 20:00 04/30/19 13:00 Duoneb *Not For Prn Use* IH 1 ampul TIDRT SANCHEZ Administration Lipase/Protease/Amylase 1 each 04/10/19 15:16 Pancrejewel Barrientos 10,500 Unit FEEDTUBE PRN PRN For Clogged Feeding Tube Epoetin Solitario 20,000 unit 03/24/19 11:17 04/29/19 13:17 Procrit IV 20,000 unit UMA PRN Administration hemodialysis Famotidine 20 mg 02/23/19 10:00 04/30/19 09:48 Pepcid PO 20 mg DAILY SANCHEZ Administration Insulin Human Regular 0 units 02/26/19 12:00 04/30/19 13:21 Humulin R SUB-Q 1 units Q6HR SANCHEZ Administration Protocol Metoprolol Tartrate 2.5 mg 02/28/19 12:06 03/15/19 05:15 Lopressor IV 2.5 mg Q4HR PRN Administration Tachycardia Risperidone 1 mg 02/25/19 13:00 04/30/19 09:48 Risperdal PO 1 mg DAILY SANCHEZ Administration Sertraline HCl 100 mg 02/25/19 13:00 04/30/19 09:48 Zoloft PO 100 mg DAILY SANCHEZ Administration Simple Syrup 15 ml 04/10/19 15:16 Simple Syrup FEEDTUBE PRN PRN Hypoglycemia Simple Syrup 30 ml 04/10/19 15:16 Simple Syrup FEEDTUBE PRN PRN Hypoglycemia Sodium Bicarbonate 325 mg 04/10/19 15:16 Sodium Bicarbonate FEEDTUBE PRN PRN For Clogged Feeding Tube Sodium Hypochlorite 1 applic 04/01/19 13:00 04/30/19 09:49 Dakin's Half Strength TP 1 applicatio BID SANCHEZ Administration Nutrition/Malnutrition Assess - Dietary Evaluation Nutrition/Malnutrition Findings: Nutrition Notes Start: 02/22/19 12:51 Freq: Status: Active Protocol: Document 04/24/19 11:11 PS (Rec: 04/24/19 12:23 PS [id number]) Co-Sign 04/24/19 11:11 LP Nutrition Notes Initial or Follow up Reassessment Current Diagnosis Diabetes,Hypertension Other Pertinent Diagnosis Sacral PU, ESRD on HD (T/Thurs /Sat), Schizophrenia,Blind in L eye,S/P trach Current Diet Nepro at 50 ml/hr w/Abhilash BID Labs/Tests POC Glu 141 Pertinent Medications Reviewed Height 5 ft 10 in Weight 65.7 kg [place] Body Weight (kg) 75.45 BMI 20.7 Weight change and time frame wt. change noted. Subjective/Other Information Observed Nepro infusing at 50 ml/hr. RN had Abhilash and was going to give it to him BID. Percent of energy/protein needs met: 100%/100% Burn Absent Trauma Absent Minimum of two criteria N #2 Nutrition Diagnosis Increased nutrient needs ( specify in comment below) Diagnosis Progress(for reassessment Continues documentation) #1 Nutrition Diagnosis Inadequate oral intake Diagnosis Progress(for reassessment Continues documentation) Is patient on ventilator? No Is Patient Ambulatory and/or Out of Bed No REE-([facility]-confined to bed) 1749.252 Kcal/Kg value to use for calculation 35 Approximate Energy Requirements Using 2300 kcal/Kg Calculation Used for Recommendations Kcal/kg Additional Notes Protein Needs: 79 - 98 g (1.2- 1.5 g/kg) Fluid Needs: 1-1.5 L/day Nutrition Intervention Change Diet Order: Continue TF Nutrition Support: Nepro with Carbsteady 1.8 at 50 ml/hr Flush 200 ml q4hr Kcal 2,160 Protein (gm) 97 Fluid (mL) 872 Add Supplement/Snack (indicate name/kcal Abhilash BID /protein ) Provides kCal: 190 Provides Protein (gm) 5 Goal #1 TF tolerance Goal #2 Continue to meet at least 75% of calorie and protein needs via TF Anticipated Discharge Needs: TF Follow-Up By: 05/01/19 Additional Comments Follow for TF/ONS tolerance
[2019-04-30 15:15] LABS: Hepatitis B Surface Antigen Non-Reactive (Negative); Hepatitis C Virus Antibody Non-Reactive (NonReactive)
[2019-05-01] MEDS: INSULIN REGULAR, HUMAN 100 UNITS/1 ML SUB-Q SCH ×4 (01:40→18:00)
[2019-05-01] MEDS: IPRATROPIUM/ALBUTEROL SULFATE 3 ML AMPUL.NEB IH SCH ×3 (07:34→20:03)
--- NOTE | 2019-05-01 10:07 | Progress Note ---
Assessment and Plan Assessment: * End stage renal disease (outpatient TTS schedule) * Acute hypoxic respiratory failure on mechanical ventilation * Atrial fibrillation * History of CVA * Anemia secondary to ESRD * Secondary hyperparathyroidism Plan * Continue HD MWF schedule for now while inpatient * UF as tolerated * AVG in use. * Nutrition per primary team * Dose medications for renal function * Epogen TID Overall prognosis remains poor; will continue to follow for ESRD needs while inpatient. Subjective Date of service: 05/01/19 Principal diagnosis: Respiratory failure, acute on chronic systolic HF, ESRD Interval history: no acute events Objective - Exam Narrative Exam: General appearance: chronically ill, intubated, frail EENT: normocephalic Neck: ETT in place Respiratory: coarse mechanical breath sounds bilaterally Cardiology: regular, S1S2, no edema Gastrointestinal: PEG and colostomy noted Integumentary: warm and dry Psychiatric: unable to assess - Vital Signs Vital signs: Vital Signs - 12hr 04/30/19 05/01/19 05/01/19 23:00 00:00 04:21 Temperature 98 F 97.7 F Pulse Rate 78 93 H Respiratory 20 18 Rate Blood Pressure 118/48 Blood Pressure 110/68 [Right] O2 Sat by Pulse 99 Oximetry O2 Sat by Pulse 97 Oximetry [ Assessment] 05/01/19 05/01/19 05/01/19 08:40 08:42 08:50 Temperature Pulse Rate 103 H Respiratory Rate Blood Pressure 135/65 Blood Pressure [Right] O2 Sat by Pulse 100 95 Oximetry O2 Sat by Pulse 100 Oximetry [ Assessment] - Lab 04/26/19 10:12 04/26/19 10:12 Most recent lab results ABG pH 7.424 pH Units (7.350-7.450) 03/19/19 04:23 ABG pCO2 48.0 mm Hg 03/19/19 04:23 ABG pO2 78.3 mm Hg (80.0-90.0) L 03/19/19 04:23 ABG HCO3 30.7 mmol/L (20.0-26.0) H 03/19/19 04:23 ABG O2 Saturation 97.0 % (95.0-99.0) 03/19/19 04:23 Calcium 10.0 mg/dL (8.4-10.2) 04/26/19 10:12 Phosphorus 4.30 mg/dL (2.5-4.5) D 03/31/19 10:26 Magnesium 2.70 mg/dL (1.7-2.3) H 03/30/19 10:13 Medications & Allergies - Medications Allergies/Adverse Reactions: Allergies haloperidol [From Haldol] Adverse Reaction (Verified 03/13/18 12:10) Unknown haloperidol lactate [From Haldol] Adverse Reaction (Verified 03/13/18 12:10) Unknown Home Medications: Home Medications Medication Instructions Recorded Confirmed Last Taken Type risperiDONE [RisperDAL] 1 mg PO QAM 03/13/18 02/21/19 Unknown History Sertraline [Zoloft] 100 mg PO QDAY 08/26/18 02/21/19 Unknown History Polyethylene Glycol 3350 [Miralax 17 gm PO QDAY #30 packet 11/05/18 02/21/19 Unknown Rx 3350] Aspirin EC [Halfprin EC] 81 mg PO DAILY #30 11/19/18 02/21/19 Unknown Rx Docusate Sodium [Colace CAP] 100 mg PO BID #60 11/19/18 02/21/19 Unknown Rx Folic Acid [Folvite] 1 mg PO DAILY #30 tab 11/19/18 02/21/19 Unknown Rx Famotidine [Pepcid] 20 mg PO DAILY tablet 12/08/18 02/21/19 Unknown Rx Gabapentin [Neurontin] 100 mg PO QHS capsule 12/08/18 02/21/19 Unknown Rx Metoprolol [Lopressor TAB] 50 mg PO BID 30 Days tablet 12/08/18 02/21/19 Unknown Rx Sevelamer Carbonate [Renvela] 800 mg PO TIDWM tablet 12/08/18 02/21/19 Unknown Rx hydrALAZINE [Apresoline TAB] 100 mg PO Q8HR #120 tablet 12/08/18 02/21/19 Unknown Rx Acetaminophen [Acetaminophen TAB] 650 mg PO Q12H PRN 12/15/18 02/21/19 Unknown History Glucagon,Human Recombinant 1 mg IJ Q15MIN PRN 12/15/18 02/21/19 Unknown History [Glucagon Emergency Kit] Insulin Aspart [NovoLOG 100 See Protocol SQ QWEEK 12/15/18 02/21/19 Unknown History UNITS/ML VIAL] Active Medications: Generic Name Dose Route Start Last Admin Trade Name Freq PRN Reason Stop Dose Admin Albuterol/Ipratropium 1 ampul 02/24/19 20:00 05/01/19 07:34 Duoneb *Not For Prn Use* IH 1 ampul TIDRT SANCHEZ Administration Lipase/Protease/Amylase 1 each 04/10/19 15:16 Pancreaze 10,500 Unit FEEDTUBE PRN PRN For Clogged Feeding Tube Epoetin Solitario 20,000 unit 03/24/19 11:17 04/29/19 13:17 Procrit IV 20,000 unit UMA PRN Administration hemodialysis Famotidine 20 mg 02/23/19 10:00 04/30/19 09:48 Pepcid PO 20 mg DAILY SANCHEZ Administration Insulin Human Regular 0 units 02/26/19 12:00 05/01/19 05:59 Humulin R SUB-Q Not Given Q6HR ON LICENSE OF [facility] Protocol Metoprolol Tartrate 2.5 mg 02/28/19 12:06 03/15/19 05:15 Lopressor IV 2.5 mg Q4HR PRN Administration Tachycardia Risperidone 1 mg 02/25/19 13:00 04/30/19 09:48 Risperdal PO 1 mg DAILY SANCHEZ Administration Sertraline HCl 100 mg 02/25/19 13:00 04/30/19 09:48 Zoloft PO 100 mg DAILY SANCHEZ Administration Simple Syrup 15 ml 04/10/19 15:16 Simple Syrup FEEDTUBE PRN PRN Hypoglycemia Simple Syrup 30 ml 04/10/19 15:16 Simple Syrup FEEDTUBE PRN PRN Hypoglycemia Sodium Bicarbonate 325 mg 04/10/19 15:16 Sodium Bicarbonate FEEDTUBE PRN PRN For Clogged Feeding Tube Sodium Hypochlorite 1 applic 04/01/19 13:00 04/30/19 23:50 Dakin's Half Strength TP 1 applicatio BID SANCHEZ Administration
[2019-05-01] MEDS: SODIUM HYPOCHLORITE, DAKIN'S 1/2 STRENGTH (0.25%) 473 ML TOPICAL SOLN TP SCH ×2 (11:03→23:13)
[2019-05-01] MEDS: FAMOTIDINE 20 MG TAB PO SCH (11:04)
[2019-05-01] MEDS: SERTRALINE 100 MG TAB PO SCH (11:05)
[2019-05-01] MEDS: risperiDONE 1 MG TAB PO SCH (11:05)
--- NOTE | 2019-05-01 11:18 | Progress Note ---
Assessment and Plan Assessment and plan: Patient is 63-year-old -[place] male patient from [facility] with multiple co-morbidities including blindness, CVA, CHF, PPM/ICD, loop recorder since 2012 that is MRI compatible, IDDM type 2, sepsis left foot ulcer, afib, ESRD with complications on HD TTS, hypertension, AOCD and GERD who presented to the ED with hypotensive after intubation in the emergency room. diagnosed with fluid overload, pleural effusion. Patient has had recurrent admission in the hospital for similar reason and was recently discharged from the hospital following treatment of Severe Sepsis due to Necrotizing Unstagable sacral decubitus ulcer with ostemomylitis, has received multiple courses of broad spectrum abx. Acute hypoxic respiratory failure, status post intubation and ventilatory support, now off vent, on T-piece Acute respiratory failure on mechanical ventilator >96 hrs Extubated ; history of tracheostomy on T piece Current management , nebulizers, Currently on trach/peg placed on 03/03. Now off vent, cont oxygen supplement, improving, on t piece, nebulizers, pulmonary critical following acute on chronic systolic CHF/ Acute pulmonary edema, HD per schedule Dilated CMP, EF 35-40% Continue diuresis, supportive care Acute metabolic encephalopathy, resolved, has baseline Dementia. --ESRD on hemodialysis per schedule nephrology following --Bilateral pleural effusions improved with HD --Permanent atrial fibrillation and flutter and hypercoaguable state Not on anticoagulation because of anemia thrombocytopenia rate control meds optimized --Diabetes mellitus type 2 Accu-Chek sliding scale coverage Insulin as needed --NSTEMI type 2 , Cardiology following --Schizophrenia:stable --Legally blind, supportive care --hypertension, Monitor BP,'s adjust medications as needed --Hypokalemia; corrected --Pulmonary hypertension; continue current management --Dysphagia s/p PEG tube; PEG tubes per protocol --Sacral decub ulcer; Wound care --Severe malnutrition /hypoalbuminemia with FTT: 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, 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 History Interval history: Patient was seen and evaluated this morning, Patient is on PEG and trach. No acute events overnight. Hospitalist Physical - Physical exam Narrative exam: Patient is on trach and PEG, ON 5L The patient appeared well nourished and normally developed. Vital signs as documented. Head exam is unremarkable. No scleral icterus . Neck is without jugular venous distension, thyromegaly, or carotid bruits. Lungs are clear to auscultation. Cardiac exam reveals regular rate and Rhythm. First and second heart sounds normal. No murmurs, rubs or gallops. Abdominal exam reveals PEG tube in place, colostomy bag in place. Extremities are nonedematous and both femoral and pedal pulses are normal. IMPORT MANAGER: patient doesn't follow commands - Constitutional Vitals: Temp Pulse Resp BP Pulse Ox 97.7 F 103 H 18 135/65 95 05/01/19 04:21 05/01/19 08:50 05/01/19 04:21 05/01/19 08:50 05/01/19 08:50 General appearance: Present: no acute distress, well-nourished, other (T peace) Results - Labs CBC & Chem 7: 04/26/19 10:12 04/26/19 10:12 Labs: Laboratory Last Values WBC 11.5 K/mm3 (4.5-11.0) H 04/26/19 10:12 RBC 2.84 M/mm3 (3.65-5.03) L 04/26/19 10:12 Hgb 7.4 gm/dl (11.8-15.2) L 04/26/19 10:12 Hct 23.3 % (35.5-45.6) L 04/26/19 10:12 MCV 82 fl (84-94) L 04/26/19 10:12 MCH 26 pg (28-32) L 04/26/19 10:12 MCHC 32 % (32-34) 04/26/19 10:12 RDW 20.3 % (13.2-15.2) H 04/26/19 10:12 Plt Count 350 K/mm3 (140-440) 04/26/19 10:12 Lymph % (Auto) 7.5 % (13.4-35.0) L 04/26/19 10:12 [place] % (Auto) 7.5 % (0.0-7.3) H 04/26/19 10:12 Eos % (Auto) 5.3 % (0.0-4.3) H 04/26/19 10:12 Baso % (Auto) 0.5 % (0.0-1.8) 04/26/19 10:12 Lymph # 0.9 K/mm3 (1.2-5.4) L 04/26/19 10:12 [place] # 0.9 K/mm3 (0.0-0.8) H 04/26/19 10:12 Eos # 0.6 K/mm3 (0.0-0.4) H 04/26/19 10:12 Baso # 0.1 K/mm3 (0.0-0.1) 04/26/19 10:12 Add Manual Diff Complete 03/21/19 06:30 Total Counted 100 03/21/19 06:30 Seg Neutrophils % 79.2 % (40.0-70.0) H 04/26/19 10:12 Seg Neuts % (Manual) 81.0 % (40.0-70.0) H 03/21/19 06:30 Band Neutrophils % 0 % 03/21/19 06:30 Lymphocytes % (Manual) 8.0 % (13.4-35.0) L 03/21/19 06:30 Reactive Lymphs % (Man) 0 % 03/21/19 06:30 Monocytes % (Manual) 1.0 % (0.0-7.3) 03/21/19 06:30 Eosinophils % (Manual) 8.0 % (0.0-4.3) H 03/21/19 06:30 Basophils % (Manual) 1.0 % (0.0-1.8) 03/21/19 06:30 Metamyelocytes % 1.0 % 03/21/19 06:30 Myelocytes % 0 % 03/21/19 06:30 Promyelocytes % 0 % 03/21/19 06:30 Blast Cells % 0 % 03/21/19 06:30 Nucleated RBC % Not Reportable 03/21/19 06:30 Seg Neutrophils # 9.1 K/mm3 (1.8-7.7) H 04/26/19 10:12 Seg Neutrophils # Man 6.7 K/mm3 (1.8-7.7) 03/21/19 06:30 Band Neutrophils # 0.0 K/mm3 03/21/19 06:30 Lymphocytes # (Manual) 0.7 K/mm3 (1.2-5.4) L 03/21/19 06:30 Abs React Lymphs (Man) 0.0 K/mm3 03/21/19 06:30 Monocytes # (Manual) 0.1 K/mm3 (0.0-0.8) 03/21/19 06:30 Eosinophils # (Manual) 0.7 K/mm3 (0.0-0.4) H 03/21/19 06:30 Basophils # (Manual) 0.1 K/mm3 (0.0-0.1) 03/21/19 06:30 Metamyelocytes # 0.1 K/mm3 03/21/19 06:30 Myelocytes # 0.0 K/mm3 03/21/19 06:30 Promyelocytes # 0.0 K/mm3 03/21/19 06:30 Blast Cells # 0.0 K/mm3 03/21/19 06:30 WBC Morphology Not Reportable 03/21/19 06:30 Hypersegmented Neuts Not Reportable 03/21/19 06:30 Hyposegmented Neuts Not Reportable 03/21/19 06:30 Hypogranular Neuts Not Reportable 03/21/19 06:30 Smudge Cells Not Reportable 03/21/19 06:30 Toxic Granulation Not Reportable 03/21/19 06:30 Toxic Vacuolation Not Reportable 03/21/19 06:30 Dohle Bodies Not Reportable 03/21/19 06:30 Pelger-Huet Anomaly Not Reportable 03/21/19 06:30 Tramaine Rods Not Reportable 03/21/19 06:30 Platelet Estimate Consistent w auto 03/21/19 06:30 Clumped Platelets Not Reportable 03/21/19 06:30 Plt Clumps, EDTA Not Reportable 03/21/19 06:30 Large Platelets Not Reportable 03/21/19 06:30 Giant Platelets Not Reportable 03/21/19 06:30 Platelet Satelliting Not Reportable 03/21/19 06:30 Plt Morphology Comment Not Reportable 03/21/19 06:30 RBC Morphology Not Reportable 03/21/19 06:30 Dimorphic RBCs Not Reportable 03/21/19 06:30 Polychromasia Not Reportable 03/21/19 06:30 Hypochromasia Few 03/21/19 06:30 Poikilocytosis Few 03/21/19 06:30 Anisocytosis Few 03/21/19 06:30 Microcytosis Not Reportable 03/21/19 06:30 Macrocytosis Not Reportable 03/21/19 06:30 Spherocytes Not Reportable 03/21/19 06:30 Pappenheimer Bodies Not Reportable 03/21/19 06:30 Sickle Cells Not Reportable 03/21/19 06:30 Target Cells 1+ 03/21/19 06:30 Tear Drop Cells Not Reportable 03/21/19 06:30 Ovalocytes Few 03/21/19 06:30 Helmet Cells Not Reportable 03/21/19 06:30 [place] Bodies Not Reportable 03/21/19 06:30 Forgan Rings Not Reportable 03/21/19 06:30 [place] Cells Not Reportable 03/21/19 06:30 Bite Cells Not Reportable 03/21/19 06:30 Crenated Cell Not Reportable 03/21/19 06:30 Elliptocytes Not Reportable 03/21/19 06:30 Acanthocytes (Spur) Not Reportable 03/21/19 06:30 Rouleaux Not Reportable 03/21/19 06:30 Hemoglobin C Crystals Not Reportable 03/21/19 06:30 Schistocytes Not Reportable 03/21/19 06:30 Malaria parasites Not Reportable 03/21/19 06:30 Jose Juan Bodies Not Reportable 03/21/19 06:30 Hem Pathologist Commnt No 03/21/19 06:30 PT 16.3 Sec. (12.2-14.9) H 03/01/19 09:39 INR 1.35 (0.87-1.13) H 03/01/19 09:39 APTT 33.7 Sec. (24.2-36.6) 02/21/19 18:30 D-Dimer 2987.82 ng/mlDDU (0-234) H 02/22/19 05:54 POC ABG pH 7.510 (7.35-7.45) H 03/18/19 06:38 ABG pH 7.424 pH Units (7.350-7.450) 03/19/19 04:23 POC ABG pCO2 38.9 (35-45) 03/18/19 06:38 ABG pCO2 48.0 mm Hg 03/19/19 04:23 POC ABG pO2 164 (80-105) H 03/18/19 06:38 ABG pO2 78.3 mm Hg (80.0-90.0) L 03/19/19 04:23 POC ABG HCO3 31.0 (22-26 mml/L) 03/18/19 06:38 ABG HCO3 30.7 mmol/L (20.0-26.0) H 03/19/19 04:23 POC ABG Total CO2 32 (23-27mmol/L) 03/18/19 06:38 POC ABG O2 Sat 100 03/18/19 06:38 ABG O2 Saturation 97.0 % (95.0-99.0) 03/19/19 04:23 ABG O2 Content 7.9 (0.0-44) 03/19/19 04:23 POC ABG Base Excess 8 ((-2) - (+3)mmol/L) 03/18/19 06:38 ABG Base Excess 5.8 mmol/L (-2.0-3.0) H 03/19/19 04:23 ABG Hemoglobin 5.8 gm/dl (14.0-18.0) L 03/19/19 04:23 ABG Carboxyhemoglobin 2.0 % (0.0-5.0) 03/19/19 04:23 ABG Methemoglobin 0.4 % (0.0-1.5) 03/19/19 04:23 Oxyhemoglobin 94.6 % (95.0-99.0) L 03/19/19 04:23 FiO2 35 % 03/19/19 04:23 Sodium 130 mmol/L (137-145) L 04/26/19 10:12 Potassium 4.2 mmol/L (3.6-5.0) 04/26/19 10:12 Chloride 87.4 mmol/L (98-107) L 04/26/19 10:12 Carbon Dioxide 28 mmol/L (22-30) 04/26/19 10:12 Anion Gap 19 mmol/L 04/26/19 10:12 BUN 93 mg/dL (9-20) H 04/26/19 10:12 Creatinine 4.2 mg/dL (0.8-1.5) H 04/26/19 10:12 Estimated GFR 17 ml/min 04/26/19 10:12 BUN/Creatinine Ratio 22 % 04/26/19 10:12 Glucose 140 mg/dL (75-100) H 04/26/19 10:12 POC Glucose 150 (70-105) H 05/01/19 06:06 Lactic Acid 1.00 mmol/L (0.7-2.0) 02/21/19 20:58 Calcium 10.0 mg/dL (8.4-10.2) 04/26/19 10:12 Phosphorus 4.30 mg/dL (2.5-4.5) D 03/31/19 10:26 Magnesium 2.70 mg/dL (1.7-2.3) H 03/30/19 10:13 Total Bilirubin 0.20 mg/dL (0.1-1.2) 03/30/19 10:13 AST 16 units/L (5-40) 03/30/19 10:13 ALT 11 units/L (7-56) 03/30/19 10:13 Alkaline Phosphatase 185 units/L (35-129) H 03/30/19 10:13 Ammonia 28.0 umol/L (25-60) 02/21/19 20:04 Total Creatine Kinase 64 units/L (55-170) 02/22/19 03:42 CK-MB (CK-2) 3.7 ng/mL (0.0-4.0) 02/22/19 03:42 CK-MB (CK-2) Rel Index 5.7 (0-4) H 02/22/19 03:42 Troponin T 0.193 ng/mL (0.00-0.029) H* 02/22/19 03:42 Total Protein 6.9 g/dL (6.3-8.2) 03/30/19 10:13 Albumin 2.6 g/dL (3.9-5) L 03/30/19 10:13 Albumin/Globulin Ratio 0.6 % 03/30/19 10:13 Triglycerides 51 mg/dL (2-149) 02/21/19 18:30 Cholesterol 82 mg/dL (50-199) 02/21/19 18:30 LDL Cholesterol Direct 36 mg/dL (50-130) L 02/21/19 18:30 HDL Cholesterol 40 mg/dL (40-59) 02/21/19 18:30 Cholesterol/HDL Ratio 2.05 % 02/21/19 18:30 TSH 2.760 mlU/mL (0.270-4.200) 02/21/19 20:04 PTH Intact 267.6 pg/mL (15-65) H 03/02/19 05:15 Salicylates < 0.3 mg/dL (2.8-20.0) L 02/21/19 20:04 Acetaminophen < 5.0 ug/mL (10.0-30.0) L 02/21/19 20:04 Hepatitis A IgM Ab Non-reactive (NonReactive) 04/30/19 14:11 Hep Bs Antigen Non-reactive (Negative) 04/30/19 14:11 Hep B Core IgM Ab Non-reactive (NonReactive) 04/30/19 14:11 Hepatitis C Antibody Non-reactive (NonReactive) 04/30/19 14:11 Blood Type O POSITIVE 03/22/19 08:48 Antibody Screen Negative 03/22/19 08:48 Crossmatch See Detail 03/22/19 08:48 Active Medications - Current Medications Current Medications: Generic Name Dose Route Start Last Admin Trade Name Freq PRN Reason Stop Dose Admin Albuterol/Ipratropium 1 ampul 02/24/19 20:00 05/01/19 07:34 Duoneb *Not For Prn Use* IH 1 ampul TIDRT SANCHEZ Administration Lipase/Protease/Amylase 1 each 04/10/19 15:16 Pancrejewel Barrientos 10,500 Unit FEEDTUBE PRN PRN For Clogged Feeding Tube Epoetin Solitario 20,000 unit 03/24/19 11:17 04/29/19 13:17 Procrit IV 20,000 unit UMA PRN Administration hemodialysis Famotidine 20 mg 02/23/19 10:00 05/01/19 11:04 Pepcid PO 20 mg DAILY SANCHEZ Administration Insulin Human Regular 0 units 02/26/19 12:00 05/01/19 05:59 Humulin R SUB-Q Not Given Q6HR [facility] Protocol Metoprolol Tartrate 2.5 mg 02/28/19 12:06 03/15/19 05:15 Lopressor IV 2.5 mg Q4HR PRN Administration Tachycardia Risperidone 1 mg 02/25/19 13:00 05/01/19 11:05 Risperdal PO 1 mg DAILY SANCHEZ Administration Sertraline HCl 100 mg 02/25/19 13:00 05/01/19 11:05 Zoloft PO 100 mg DAILY SANCHEZ Administration Simple Syrup 15 ml 04/10/19 15:16 Simple Syrup FEEDTUBE PRN PRN Hypoglycemia Simple Syrup 30 ml 04/10/19 15:16 Simple Syrup FEEDTUBE PRN PRN Hypoglycemia Sodium Bicarbonate 325 mg 04/10/19 15:16 Sodium Bicarbonate FEEDTUBE PRN PRN For Clogged Feeding Tube Sodium Hypochlorite 1 applic 04/01/19 13:00 05/01/19 11:03 Dakin's Half Strength TP 1 applicatio BID SANCHEZ Administration Nutrition/Malnutrition Assess - Dietary Evaluation Nutrition/Malnutrition Findings: Nutrition Notes Start: 02/22/19 12:51 Freq: Status: Active Protocol: Document 05/01/19 10:01 PS (Rec: 05/01/19 10:22 PS [id number]) Co-Sign 05/01/19 10:01 LM Nutrition Notes Initial or Follow up Reassessment Current Diagnosis Diabetes,Hypertension Other Pertinent Diagnosis Sacral PU, ESRD on HD (T/Thurs /Sat), Schizophrenia,Blind in L eye,S/P trach Current Diet Nepro at 50 ml/hr w/Abhilash BID Labs/Tests POC Glu 150 Pertinent Medications Reviewed Height 5 ft 10 in Weight 75 kg [place] Body Weight (kg) 75.45 BMI 23.7 Weight change and time frame wt. change noted. Subjective/Other Information Observed Nepro infusing at 50 ml/hr. RN had Abhilash and was going to give it to him BID. Percent of energy/protein needs met: 100%/100% Burn Absent Trauma Absent Minimum of two criteria No #2 Nutrition Diagnosis Increased nutrient needs ( specify in comment below) Diagnosis Progress(for reassessment Continues documentation) #1 Nutrition Diagnosis Inadequate oral intake Diagnosis Progress(for reassessment Continues documentation) Is patient on ventilator? No Is Patient Ambulatory and/or Out of Bed No REE-([facility]-confined to bed) 1860.744 Kcal/Kg value to use for calculation 31 Approximate Energy Requirements Using 2325 kcal/Kg Calculation Used for Recommendations [facility] Additional Notes Protein Needs:90 - 112 g (1.2- 1.5 g/kg) Fluid Needs: 1-1.5 L/day Nutrition Intervention Change Diet Order: Continue TF Nutrition Support: Nepro with Carbsteady 1.8 at 50 ml/hr Flush 200 ml q4hr Kcal 2,160 Protein (gm) 97 Fluid (mL) 872 Add Supplement/Snack (indicate name/kcal Abhilash BID /protein ) Provides kCal: 190 Provides Protein (gm) 5 Goal #1 TF tolerance Goal #2 Continue to meet at least 75% of calorie and protein needs via TF Anticipated Discharge Needs: TF Follow-Up By: 05/08/19 Additional Comments Follow for TF/ONS tolerance
--- NOTE | 2019-05-01 20:43 | Progress Note ---
Assessment and Plan Imp: 1. Acute encephalopathy, probably metabolic or toxic, resolved 2. A/C systolic CHF 3. Dilated CMP 4. Pulm HTN 5. ESRD 6. RUL atelectasis, probably mucous plugging -> resolved 7. KEON pneumonia, resolved Rec: 1. Chest PT, Duonebs 2. Tolerating Tpiece; monitor; medically I believe his trach should be permanent for airway management but he may require decannulation for placement in a SNF; he is tolerating PMV and goal will be to increase amount of time with PMV in place, then possibly cap or downsize to 4 cuffless trach first; cuffed trach is noted to be at the bedside for emergency purposes 3. Avoid sedatives; resumed psych meds 4. DVT and GI PPx 5. TFs per PEG 6. HD per renal 7. Agree w/ DNR as per family wishes although hospice is the most appropriate course for him Await placement No family present Subjective Date of service: 05/01/19 Principal diagnosis: Respiratory failure, acute on chronic systolic HF, ESRD Interval history: No events. Mentation near usual poor baseline. Does respond to basic questions but cannot give hx. On 28% per Tpiece. On HD. Tolerating PSV well per ST notes. Active Medications Albuterol/Ipratropium (Duoneb *Not For Prn Use*) 1 ampul IH TIDRT [facility] Last Admin: 05/01/19 20:03 Dose: 1 ampul Documented by: Lipase/Protease/Amylase (Pancrejewel Barrientos 10,500 Unit) 1 each FEEDTUBE PRN PRN PRN Reason: For Clogged Feeding Tube Epoetin Solitario (Procrit) 20,000 unit IV UMA PRN PRN Reason: hemodialysis Last Admin: 04/29/19 13:17 Dose: 20,000 unit Documented by: Famotidine (Pepcid) 20 mg PO DAILY [facility] Last Admin: 05/01/19 11:04 Dose: 20 mg Documented by: Insulin Human Regular (Humulin R) 0 units SUB-Q Q6HR [facility]; Protocol Last Admin: 05/01/19 18:00 Dose: Not Given Documented by: Metoprolol Tartrate (Lopressor) 2.5 mg IV Q4HR PRN PRN Reason: Tachycardia Last Admin: 03/15/19 05:15 Dose: 2.5 mg Documented by: Risperidone (Risperdal) 1 mg PO DAILY [facility] Last Admin: 05/01/19 11:05 Dose: 1 mg Documented by: Sertraline HCl (Zoloft) 100 mg PO DAILY [facility] Last Admin: 05/01/19 11:05 Dose: 100 mg Documented by: Simple Syrup (Simple Syrup) 15 ml FEEDTUBE PRN PRN PRN Reason: Hypoglycemia Simple Syrup (Simple Syrup) 30 ml FEEDTUBE PRN PRN PRN Reason: Hypoglycemia Sodium Bicarbonate (Sodium Bicarbonate) 325 mg FEEDTUBE PRN PRN PRN Reason: For Clogged Feeding Tube Sodium Hypochlorite (Dakin's Half Strength) 1 applic TP BID [facility] Last Admin: 05/01/19 11:03 Dose: 1 applicatio Documented by: Objective Vital Signs - 12hr 05/01/19 05/01/19 05/01/19 08:42 08:50 10:00 Temperature Pulse Rate 103 H 94 H Pulse Rate [ Anterior Bilateral Throughout] Pulse Rate [ 76 Apical] Pulse Rate [ Posterior Bilateral Throughout] Respiratory 18 Rate Respiratory Rate [Anterior Bilateral Throughout] Respiratory Rate [Posterior Bilateral Throughout] Blood Pressure 135/65 O2 Sat by Pulse 100 95 Oximetry 05/01/19 05/01/19 05/01/19 11:44 13:20 15:15 Temperature 96.7 F L Pulse Rate 91 H 94 H Pulse Rate [ Anterior Bilateral Throughout] Pulse Rate [ Apical] Pulse Rate [ 98 H Posterior Bilateral Throughout] Respiratory 19 Rate Respiratory Rate [Anterior Bilateral Throughout] Respiratory 18 Rate [Posterior Bilateral Throughout] Blood Pressure 119/61 131/69 O2 Sat by Pulse 99 Oximetry 05/01/19 05/01/19 05/01/19 15:30 15:45 16:00 Temperature Pulse Rate 92 H 92 H 100 H Pulse Rate [ Anterior Bilateral Throughout] Pulse Rate [ Apical] Pulse Rate [ Posterior Bilateral Throughout] Respiratory Rate Respiratory Rate [Anterior Bilateral Throughout] Respiratory Rate [Posterior Bilateral Throughout] Blood Pressure 119/66 117/64 105/68 O2 Sat by Pulse Oximetry 05/01/19 05/01/19 05/01/19 16:15 16:30 19:51 Temperature 97.8 F Pulse Rate 92 H 96 H 95 H Pulse Rate [ Anterior Bilateral Throughout] Pulse Rate [ Apical] Pulse Rate [ Posterior Bilateral Throughout] Respiratory 18 Rate Respiratory Rate [Anterior Bilateral Throughout] Respiratory Rate [Posterior Bilateral Throughout] Blood Pressure 118/66 120/63 104/62 O2 Sat by Pulse 99 Oximetry 05/01/19 05/01/19 20:05 20:06 Temperature Pulse Rate Pulse Rate [ 92 H Anterior Bilateral Throughout] Pulse Rate [ Apical] Pulse Rate [ 99 H Posterior Bilateral Throughout] Respiratory Rate Respiratory 20 Rate [Anterior Bilateral Throughout] Respiratory 18 Rate [Posterior Bilateral Throughout] Blood Pressure O2 Sat by Pulse 98 Oximetry Constitutional: no acute distress, alert Eyes: non-icteric ENT: oropharynx moist Neck: supple Effort: normal Ascultation: Bilateral: other (coarse BS bilaterally) Cardiovascular: regular rate and rhythm (no mrg) Gastrointestinal: normoactive bowel sounds, soft, non-tender, non-distended, other (ostomy in place, brown stool) Extremities: no cyanosis, no edema, pink and warm Neurologic: other (mild weakness LUE, o/w nonfocal) Psychiatric: other (unable to assess) CBC and BMP: 04/26/19 10:12 04/26/19 10:12 ABG, PT/INR, D-dimer: ABG POC ABG pH 7.510 (7.35-7.45) H 03/18/19 06:38 ABG pH 7.424 pH Units (7.350-7.450) 03/19/19 04:23 POC ABG pCO2 38.9 (35-45) 03/18/19 06:38 ABG pCO2 48.0 mm Hg 03/19/19 04:23 POC ABG pO2 164 (80-105) H 03/18/19 06:38 ABG pO2 78.3 mm Hg (80.0-90.0) L 03/19/19 04:23 POC ABG HCO3 31.0 (22-26 mml/L) 03/18/19 06:38 POC ABG Total CO2 32 (23-27mmol/L) 03/18/19 06:38 POC ABG O2 Sat 100 03/18/19 06:38 ABG O2 Saturation 97.0 % (95.0-99.0) 03/19/19 04:23 PT/INR, D-dimer PT 16.3 Sec. (12.2-14.9) H 03/01/19 09:39 INR 1.35 (0.87-1.13) H 03/01/19 09:39 D-Dimer 2987.82 ng/mlDDU (0-234) H 02/22/19 05:54 Abnormal lab findings: Abnormal Labs 02/21/19 02/21/19 02/21/19 18:30 18:30 18:30 WBC RBC 3.26 L Hgb 8.8 L Hct 29.0 L MCV MCH 27 L MCHC 30 L RDW 19.1 H Lymph % (Auto) 6.1 L Webb % (Auto) Eos % (Auto) Lymph # 0.4 L Webb # Eos # Seg Neutrophils % 86.2 H Seg Neuts % (Manual) Lymphocytes % (Manual) Eosinophils % (Manual) Seg Neutrophils # Lymphocytes # (Manual) Eosinophils # (Manual) PT INR D-Dimer POC ABG pH POC ABG pCO2 POC ABG pO2 ABG pO2 ABG HCO3 ABG Base Excess ABG Hemoglobin Oxyhemoglobin Sodium 133 L Potassium 3.3 L Chloride 93.1 L Carbon Dioxide 33 H BUN Creatinine Glucose 161 H POC Glucose Calcium Phosphorus Magnesium ALT Alkaline Phosphatase 136 H Total Creatine Kinase 37 L CK-MB (CK-2) Rel Index Troponin T 0.192 H* Albumin 2.4 L LDL Cholesterol Direct 36 L PTH Intact Salicylates Acetaminophen Crossmatch 02/21/19 02/21/19 02/21/19 18:42 20:04 20:04 WBC RBC Hgb Hct MCV MCH MCHC RDW Lymph % (Auto) Webb % (Auto) Eos % (Auto) Lymph # Webb # Eos # Seg Neutrophils % Seg Neuts % (Manual) Lymphocytes % (Manual) Eosinophils % (Manual) Seg Neutrophils # Lymphocytes # (Manual) Eosinophils # (Manual) PT INR D-Dimer POC ABG pH POC ABG pCO2 56.7 H POC ABG pO2 291 H ABG pO2 ABG HCO3 ABG Base Excess ABG Hemoglobin Oxyhemoglobin Sodium Potassium Chloride Carbon Dioxide BUN Creatinine Glucose POC Glucose Calcium Phosphorus Magnesium ALT Alkaline Phosphatase Total Creatine Kinase CK-MB (CK-2) Rel Index Troponin T Albumin LDL Cholesterol Direct PTH Intact Salicylates < 0.3 L Acetaminophen < 5.0 L Crossmatch 02/21/19 02/22/19 02/22/19 22:35 03:42 03:42 WBC RBC 3.20 L Hgb 8.8 L Hct 27.6 L MCV MCH MCHC RDW 18.9 H Lymph % (Auto) 7.4 L Webb % (Auto) Eos % (Auto) Lymph # 0.7 L Webb # Eos # Seg Neutrophils % 84.7 H Seg Neuts % (Manual) Lymphocytes % (Manual) Eosinophils % (Manual) Seg Neutrophils # Lymphocytes # (Manual) Eosinophils # (Manual) PT INR D-Dimer POC ABG pH POC ABG pCO2 POC ABG pO2 ABG pO2 ABG HCO3 ABG Base Excess ABG Hemoglobin Oxyhemoglobin Sodium 134 L Potassium 2.6 L* D Chloride Carbon Dioxide BUN Creatinine Glucose POC Glucose Calcium Phosphorus Magnesium ALT Alkaline Phosphatase Total Creatine Kinase CK-MB (CK-2) Rel Index 5.2 H Troponin T 0.202 H* Albumin LDL Cholesterol Direct PTH Intact Salicylates Acetaminophen Crossmatch 02/22/19 02/22/19 02/22/19 03:42 05:54 09:04 WBC RBC Hgb Hct MCV MCH MCHC RDW Lymph % (Auto) Webb % (Auto) Eos % (Auto) Lymph # Webb # Eos # Seg Neutrophils % Seg Neuts % (Manual) Lymphocytes % (Manual) Eosinophils % (Manual) Seg Neutrophils # Lymphocytes # (Manual) Eosinophils # (Manual) PT INR D-Dimer 2987.82 H POC ABG pH 7.451 H POC ABG pCO2 POC ABG pO2 ABG pO2 ABG HCO3 ABG Base Excess ABG Hemoglobin Oxyhemoglobin Sodium Potassium Chloride Carbon Dioxide BUN Creatinine Glucose POC Glucose Calcium Phosphorus Magnesium ALT Alkaline Phosphatase Total Creatine Kinase CK-MB (CK-2) Rel Index 5.7 H Troponin T 0.193 H* Albumin LDL Cholesterol Direct PTH Intact Salicylates Acetaminophen Crossmatch 02/22/19 02/22/19 02/23/19 10:36 23:56 00:52 WBC RBC Hgb Hct MCV MCH MCHC RDW Lymph % (Auto) Webb % (Auto) Eos % (Auto) Lymph # Webb # Eos # Seg Neutrophils % Seg Neuts % (Manual) Lymphocytes % (Manual) Eosinophils % (Manual) Seg Neutrophils # Lymphocytes # (Manual) Eosinophils # (Manual) PT INR D-Dimer POC ABG pH POC ABG pCO2 POC ABG pO2 ABG pO2 ABG HCO3 ABG Base Excess ABG Hemoglobin Oxyhemoglobin Sodium Potassium 3.1 L Chloride Carbon Dioxide BUN Creatinine Glucose POC Glucose 58 L 111 H Calcium Phosphorus Magnesium ALT Alkaline Phosphatase Total Creatine Kinase CK-MB (CK-2) Rel Index Troponin T Albumin LDL Cholesterol Direct PTH Intact Salicylates Acetaminophen Crossmatch 02/23/19 02/23/19 02/23/19 05:00 06:35 14:26 WBC RBC Hgb Hct MCV MCH MCHC RDW Lymph % (Auto) Webb % (Auto) Eos % (Auto) Lymph # Webb # Eos # Seg Neutrophils % Seg Neuts % (Manual) Lymphocytes % (Manual) Eosinophils % (Manual) Seg Neutrophils # Lymphocytes # (Manual) Eosinophils # (Manual) PT INR D-Dimer POC ABG pH POC ABG pCO2 POC ABG pO2 ABG pO2 ABG HCO3 ABG Base Excess ABG Hemoglobin Oxyhemoglobin Sodium 135 L Potassium 3.1 L Chloride Carbon Dioxide BUN 21 H Creatinine 2.0 H Glucose 57 L POC Glucose 64 L 62 L Calcium Phosphorus Magnesium ALT Alkaline Phosphatase Total Creatine Kinase CK-MB (CK-2) Rel Index Troponin T Albumin LDL Cholesterol Direct PTH Intact Salicylates Acetaminophen Crossmatch 02/24/19 02/24/19 02/24/19 02:11 04:12 04:55 WBC RBC 2.84 L Hgb 7.8 L Hct 24.5 L MCV MCH MCHC RDW 19.5 H Lymph % (Auto) Webb % (Auto) Eos % (Auto) Lymph # Webb # Eos # Seg Neutrophils % Seg Neuts % (Manual) Lymphocytes % (Manual) Eosinophils % (Manual) Seg Neutrophils # Lymphocytes # (Manual) Eosinophils # (Manual) PT INR D-Dimer POC ABG pH 7.511 H POC ABG pCO2 33.9 L POC ABG pO2 62 L ABG pO2 ABG HCO3 ABG Base Excess ABG Hemoglobin Oxyhemoglobin Sodium Potassium Chloride Carbon Dioxide BUN Creatinine Glucose POC Glucose 69 L Calcium Phosphorus Magnesium ALT Alkaline Phosphatase Total Creatine Kinase CK-MB (CK-2) Rel Index Troponin T Albumin LDL Cholesterol Direct PTH Intact Salicylates Acetaminophen Crossmatch 02/24/19 02/24/19 02/25/19 04:55 05:41 04:45 WBC RBC Hgb Hct MCV MCH MCHC RDW Lymph % (Auto) Webb % (Auto) Eos % (Auto) Lymph # Webb # Eos # Seg Neutrophils % Seg Neuts % (Manual) Lymphocytes % (Manual) Eosinophils % (Manual) Seg Neutrophils # Lymphocytes # (Manual) Eosinophils # (Manual) PT INR D-Dimer POC ABG pH 7.466 H POC ABG pCO2 POC ABG pO2 75 L ABG pO2 ABG HCO3 ABG Base Excess ABG Hemoglobin Oxyhemoglobin Sodium Potassium Chloride Carbon Dioxide BUN Creatinine 1.8 H Glucose 73 L POC Glucose 127 H Calcium Phosphorus Magnesium ALT Alkaline Phosphatase Total Creatine Kinase CK-MB (CK-2) Rel Index Troponin T Albumin LDL Cholesterol Direct PTH Intact Salicylates Acetaminophen Crossmatch 02/25/19 02/25/19 02/26/19 16:34 21:33 03:45 WBC RBC 2.96 L Hgb 8.0 L Hct 25.8 L MCV MCH 27 L MCHC 31 L RDW 20.0 H Lymph % (Auto) Webb % (Auto) Eos % (Auto) Lymph # Webb # Eos # Seg Neutrophils % Seg Neuts % (Manual) Lymphocytes % (Manual) Eosinophils % (Manual) Seg Neutrophils # Lymphocytes # (Manual) Eosinophils # (Manual) PT INR D-Dimer POC ABG pH POC ABG pCO2 POC ABG pO2 ABG pO2 ABG HCO3 ABG Base Excess ABG Hemoglobin Oxyhemoglobin Sodium Potassium Chloride Carbon Dioxide BUN Creatinine Glucose POC Glucose 141 H 106 H Calcium Phosphorus Magnesium ALT Alkaline Phosphatase Total Creatine Kinase CK-MB (CK-2) Rel Index Troponin T Albumin LDL Cholesterol Direct PTH Intact Salicylates Acetaminophen Crossmatch 02/26/19 02/26/19 02/26/19 03:45 04:13 07:53 WBC RBC Hgb Hct MCV MCH MCHC RDW Lymph % (Auto) Webb % (Auto) Eos % (Auto) Lymph # Webb # Eos # Seg Neutrophils % Seg Neuts % (Manual) Lymphocytes % (Manual) Eosinophils % (Manual) Seg Neutrophils # Lymphocytes # (Manual) Eosinophils # (Manual) PT INR D-Dimer POC ABG pH 7.470 H POC ABG pCO2 POC ABG pO2 ABG pO2 ABG HCO3 ABG Base Excess ABG Hemoglobin Oxyhemoglobin Sodium Potassium Chloride Carbon Dioxide BUN Creatinine 1.8 H Glucose POC Glucose 110 H Calcium Phosphorus Magnesium ALT Alkaline Phosphatase Total Creatine Kinase CK-MB (CK-2) Rel Index Troponin T Albumin LDL Cholesterol Direct PTH Intact Salicylates Acetaminophen Crossmatch 02/26/19 02/26/19 02/27/19 11:56 17:43 00:12 WBC RBC Hgb Hct MCV MCH MCHC RDW Lymph % (Auto) Webb % (Auto) Eos % (Auto) Lymph # Webb # Eos # Seg Neutrophils % Seg Neuts % (Manual) Lymphocytes % (Manual) Eosinophils % (Manual) Seg Neutrophils # Lymphocytes # (Manual) Eosinophils # (Manual) PT INR D-Dimer POC ABG pH POC ABG pCO2 POC ABG pO2 ABG pO2 ABG HCO3 ABG Base Excess ABG Hemoglobin Oxyhemoglobin Sodium Potassium Chloride Carbon Dioxide BUN Creatinine Glucose POC Glucose 112 H 127 H 127 H Calcium Phosphorus Magnesium ALT Alkaline Phosphatase Total Creatine Kinase CK-MB (CK-2) Rel Index Troponin T Albumin LDL Cholesterol Direct PTH Intact Salicylates Acetaminophen Crossmatch 02/27/19 02/27/19 02/27/19 04:35 13:15 18:02 WBC RBC Hgb Hct MCV MCH MCHC RDW Lymph % (Auto) Webb % (Auto) Eos % (Auto) Lymph # Webb # Eos # Seg Neutrophils % Seg Neuts % (Manual) Lymphocytes % (Manual) Eosinophils % (Manual) Seg Neutrophils # Lymphocytes # (Manual) Eosinophils # (Manual) PT INR D-Dimer POC ABG pH 7.483 H POC ABG pCO2 POC ABG pO2 61 L ABG pO2 ABG HCO3 ABG Base Excess ABG Hemoglobin Oxyhemoglobin Sodium Potassium Chloride Carbon Dioxide BUN Creatinine Glucose POC Glucose 143 H 106 H Calcium Phosphorus Magnesium ALT Alkaline Phosphatase Total Creatine Kinase CK-MB (CK-2) Rel Index Troponin T Albumin LDL Cholesterol Direct PTH Intact Salicylates Acetaminophen Crossmatch 02/28/19 02/28/19 02/28/19 05:50 11:59 17:52 WBC RBC Hgb Hct MCV MCH MCHC RDW Lymph % (Auto) Webb % (Auto) Eos % (Auto) Lymph # Webb # Eos # Seg Neutrophils % Seg Neuts % (Manual) Lymphocytes % (Manual) Eosinophils % (Manual) Seg Neutrophils # Lymphocytes # (Manual) Eosinophils # (Manual) PT INR D-Dimer POC ABG pH POC ABG pCO2 POC ABG pO2 ABG pO2 ABG HCO3 ABG Base Excess ABG Hemoglobin Oxyhemoglobin Sodium Potassium Chloride Carbon Dioxide BUN Creatinine Glucose POC Glucose 134 H 128 H 142 H Calcium Phosphorus Magnesium ALT Alkaline Phosphatase Total Creatine Kinase CK-MB (CK-2) Rel Index Troponin T Albumin LDL Cholesterol Direct PTH Intact Salicylates Acetaminophen Crossmatch 02/28/19 03/01/19 03/01/19 23:13 05:40 09:39 WBC RBC Hgb Hct MCV MCH MCHC RDW Lymph % (Auto) Webb % (Auto) Eos % (Auto) Lymph # Webb # Eos # Seg Neutrophils % Seg Neuts % (Manual) Lymphocytes % (Manual) Eosinophils % (Manual) Seg Neutrophils # Lymphocytes # (Manual) Eosinophils # (Manual) PT 16.3 H INR 1.35 H D-Dimer POC ABG pH POC ABG pCO2 POC ABG pO2 ABG pO2 ABG HCO3 ABG Base Excess ABG Hemoglobin Oxyhemoglobin Sodium Potassium Chloride Carbon Dioxide BUN Creatinine Glucose POC Glucose 112 H 111 H Calcium Phosphorus Magnesium ALT Alkaline Phosphatase Total Creatine Kinase CK-MB (CK-2) Rel Index Troponin T Albumin LDL Cholesterol Direct PTH Intact Salicylates Acetaminophen Crossmatch 03/01/19 03/01/19 03/01/19 11:56 13:54 17:59 WBC RBC Hgb Hct MCV MCH MCHC RDW Lymph % (Auto) Webb % (Auto) Eos % (Auto) Lymph # Webb # Eos # Seg Neutrophils % Seg Neuts % (Manual) Lymphocytes % (Manual) Eosinophils % (Manual) Seg Neutrophils # Lymphocytes # (Manual) Eosinophils # (Manual) PT INR D-Dimer POC ABG pH POC ABG pCO2 POC ABG pO2 ABG pO2 ABG HCO3 ABG Base Excess ABG Hemoglobin Oxyhemoglobin Sodium Potassium Chloride Carbon Dioxide BUN 33 H Creatinine 2.8 H D Glucose 176 H POC Glucose 199 H 147 H Calcium Phosphorus Magnesium ALT Alkaline Phosphatase Total Creatine Kinase CK-MB (CK-2) Rel Index Troponin T Albumin LDL Cholesterol Direct PTH Intact Salicylates Acetaminophen Crossmatch 03/02/19 03/02/19 03/02/19 05:15 05:15 05:15 WBC RBC 2.73 L Hgb 7.4 L Hct 23.0 L MCV MCH 27 L MCHC RDW 19.9 H Lymph % (Auto) Webb % (Auto) 7.9 H Eos % (Auto) 7.6 H Lymph # 1.0 L Webb # Eos # 0.5 H Seg Neutrophils % Seg Neuts % (Manual) Lymphocytes % (Manual) Eosinophils % (Manual) Seg Neutrophils # Lymphocytes # (Manual) Eosinophils # (Manual) PT INR D-Dimer POC ABG pH POC ABG pCO2 POC ABG pO2 ABG pO2 ABG HCO3 ABG Base Excess ABG Hemoglobin Oxyhemoglobin Sodium Potassium Chloride Carbon Dioxide BUN 43 H Creatinine 3.2 H Glucose POC Glucose Calcium Phosphorus 2.30 L Magnesium ALT Alkaline Phosphatase Total Creatine Kinase CK-MB (CK-2) Rel Index Troponin T Albumin LDL Cholesterol Direct PTH Intact 267.6 H Salicylates Acetaminophen Crossmatch 03/02/19 03/02/19 03/03/19 12:32 18:20 13:30 WBC RBC Hgb Hct MCV MCH MCHC RDW Lymph % (Auto) Webb % (Auto) Eos % (Auto) Lymph # Webb # Eos # Seg Neutrophils % Seg Neuts % (Manual) Lymphocytes % (Manual) Eosinophils % (Manual) Seg Neutrophils # Lymphocytes # (Manual) Eosinophils # (Manual) PT INR D-Dimer POC ABG pH POC ABG pCO2 POC ABG pO2 ABG pO2 ABG HCO3 ABG Base Excess ABG Hemoglobin Oxyhemoglobin Sodium Potassium Chloride 97.3 L Carbon Dioxide BUN 26 H Creatinine 2.2 H Glucose 73 L POC Glucose 111 H 156 H Calcium Phosphorus Magnesium ALT Alkaline Phosphatase Total Creatine Kinase CK-MB (CK-2) Rel Index Troponin T Albumin LDL Cholesterol Direct PTH Intact Salicylates Acetaminophen Crossmatch 03/04/19 03/04/19 03/04/19 00:02 05:37 05:40 WBC RBC 2.63 L Hgb 7.2 L Hct 22.2 L MCV MCH MCHC RDW 20.2 H Lymph % (Auto) 10.5 L Webb % (Auto) Eos % (Auto) 4.6 H Lymph # 0.7 L Webb # Eos # Seg Neutrophils % 76.9 H Seg Neuts % (Manual) Lymphocytes % (Manual) Eosinophils % (Manual) Seg Neutrophils # Lymphocytes # (Manual) Eosinophils # (Manual) PT INR D-Dimer POC ABG pH POC ABG pCO2 POC ABG pO2 ABG pO2 ABG HCO3 ABG Base Excess ABG Hemoglobin Oxyhemoglobin Sodium Potassium Chloride Carbon Dioxide BUN Creatinine Glucose POC Glucose 136 H 123 H Calcium Phosphorus Magnesium ALT Alkaline Phosphatase Total Creatine Kinase CK-MB (CK-2) Rel Index Troponin T Albumin LDL Cholesterol Direct PTH Intact Salicylates Acetaminophen Crossmatch 03/04/19 03/04/19 03/04/19 05:40 11:39 23:20 WBC RBC Hgb Hct MCV MCH MCHC RDW Lymph % (Auto) Webb % (Auto) Eos % (Auto) Lymph # Webb # Eos # Seg Neutrophils % Seg Neuts % (Manual) Lymphocytes % (Manual) Eosinophils % (Manual) Seg Neutrophils # Lymphocytes # (Manual) Eosinophils # (Manual) PT INR D-Dimer POC ABG pH POC ABG pCO2 POC ABG pO2 ABG pO2 ABG HCO3 ABG Base Excess ABG Hemoglobin Oxyhemoglobin Sodium Potassium Chloride Carbon Dioxide BUN 34 H Creatinine 2.7 H Glucose 114 H POC Glucose 175 H 151 H Calcium Phosphorus Magnesium ALT Alkaline Phosphatase Total Creatine Kinase CK-MB (CK-2) Rel Index Troponin T Albumin LDL Cholesterol Direct PTH Intact Salicylates Acetaminophen Crossmatch 03/05/19 03/05/19 03/05/19 05:37 12:08 17:11 WBC RBC Hgb Hct MCV MCH MCHC RDW Lymph % (Auto) Webb % (Auto) Eos % (Auto) Lymph # Webb # Eos # Seg Neutrophils % Seg Neuts % (Manual) Lymphocytes % (Manual) Eosinophils % (Manual) Seg Neutrophils # Lymphocytes # (Manual) Eosinophils # (Manual) PT INR D-Dimer POC ABG pH POC ABG pCO2 POC ABG pO2 ABG pO2 ABG HCO3 ABG Base Excess ABG Hemoglobin Oxyhemoglobin Sodium Potassium Chloride Carbon Dioxide BUN Creatinine Glucose POC Glucose 134 H 135 H 135 H Calcium Phosphorus Magnesium ALT Alkaline Phosphatase Total Creatine Kinase CK-MB (CK-2) Rel Index Troponin T Albumin LDL Cholesterol Direct PTH Intact Salicylates Acetaminophen Crossmatch 03/06/19 03/06/19 03/06/19 00:16 13:05 18:09 WBC RBC Hgb Hct MCV MCH MCHC RDW Lymph % (Auto) Webb % (Auto) Eos % (Auto) Lymph # Webb # Eos # Seg Neutrophils % Seg Neuts % (Manual) Lymphocytes % (Manual) Eosinophils % (Manual) Seg Neutrophils # Lymphocytes # (Manual) Eosinophils # (Manual) PT INR D-Dimer POC ABG pH POC ABG pCO2 POC ABG pO2 ABG pO2 ABG HCO3 ABG Base Excess ABG Hemoglobin Oxyhemoglobin Sodium Potassium Chloride Carbon Dioxide BUN Creatinine Glucose POC Glucose 117 H 113 H 131 H Calcium Phosphorus Magnesium ALT Alkaline Phosphatase Total Creatine Kinase CK-MB (CK-2) Rel Index Troponin T Albumin LDL Cholesterol Direct PTH Intact Salicylates Acetaminophen Crossmatch 03/07/19 03/08/19 03/08/19 05:25 05:33 16:00 WBC RBC 2.44 L Hgb 6.6 L Hct 20.8 L MCV MCH 27 L MCHC RDW 19.2 H Lymph % (Auto) Webb % (Auto) Eos % (Auto) 8.6 H Lymph # 0.8 L Webb # Eos # 0.5 H Seg Neutrophils % 70.7 H Seg Neuts % (Manual) Lymphocytes % (Manual) Eosinophils % (Manual) Seg Neutrophils # Lymphocytes # (Manual) Eosinophils # (Manual) PT INR D-Dimer POC ABG pH POC ABG pCO2 POC ABG pO2 ABG pO2 ABG HCO3 ABG Base Excess ABG Hemoglobin Oxyhemoglobin Sodium Potassium Chloride Carbon Dioxide BUN Creatinine Glucose POC Glucose 106 H 108 H Calcium Phosphorus Magnesium ALT Alkaline Phosphatase Total Creatine Kinase CK-MB (CK-2) Rel Index Troponin T Albumin LDL Cholesterol Direct PTH Intact Salicylates Acetaminophen Crossmatch 03/08/19 03/08/19 03/08/19 16:00 18:38 Unknown WBC RBC Hgb Hct MCV MCH MCHC RDW Lymph % (Auto) Webb % (Auto) Eos % (Auto) Lymph # Webb # Eos # Seg Neutrophils % Seg Neuts % (Manual) Lymphocytes % (Manual) Eosinophils % (Manual) Seg Neutrophils # Lymphocytes # (Manual) Eosinophils # (Manual) PT INR D-Dimer POC ABG pH POC ABG pCO2 POC ABG pO2 ABG pO2 ABG HCO3 ABG Base Excess ABG Hemoglobin Oxyhemoglobin Sodium Potassium 5.4 H D Chloride Carbon Dioxide BUN 47 H Creatinine 2.6 H Glucose POC Glucose 123 H Calcium Phosphorus Magnesium ALT < 5 L Alkaline Phosphatase Total Creatine Kinase CK-MB (CK-2) Rel Index Troponin T Albumin 2.2 L LDL Cholesterol Direct PTH Intact Salicylates Acetaminophen Crossmatch See Detail 03/09/19 03/09/19 03/09/19 10:48 12:28 13:53 WBC RBC 2.85 L Hgb 7.7 L Hct 24.2 L MCV MCH 27 L MCHC RDW 18.7 H Lymph % (Auto) Webb % (Auto) Eos % (Auto) Lymph # Webb # Eos # Seg Neutrophils % Seg Neuts % (Manual) Lymphocytes % (Manual) Eosinophils % (Manual) Seg Neutrophils # Lymphocytes # (Manual) Eosinophils # (Manual) PT INR D-Dimer POC ABG pH POC ABG pCO2 POC ABG pO2 ABG pO2 ABG HCO3 30.5 H ABG Base Excess 5.6 H ABG Hemoglobin 8.1 L Oxyhemoglobin 93.8 L Sodium Potassium Chloride Carbon Dioxide BUN Creatinine Glucose POC Glucose 114 H Calcium Phosphorus Magnesium ALT Alkaline Phosphatase Total Creatine Kinase CK-MB (CK-2) Rel Index Troponin T Albumin LDL Cholesterol Direct PTH Intact Salicylates Acetaminophen Crossmatch 03/09/19 03/09/19 03/10/19 17:58 23:53 12:01 WBC RBC Hgb Hct MCV MCH MCHC RDW Lymph % (Auto) Webb % (Auto) Eos % (Auto) Lymph # Webb # Eos # Seg Neutrophils % Seg Neuts % (Manual) Lymphocytes % (Manual) Eosinophils % (Manual) Seg Neutrophils # Lymphocytes # (Manual) Eosinophils # (Manual) PT INR D-Dimer POC ABG pH POC ABG pCO2 POC ABG pO2 ABG pO2 ABG HCO3 ABG Base Excess ABG Hemoglobin Oxyhemoglobin Sodium Potassium Chloride Carbon Dioxide BUN Creatinine Glucose POC Glucose 108 H 128 H 144 H Calcium Phosphorus Magnesium ALT Alkaline Phosphatase Total Creatine Kinase CK-MB (CK-2) Rel Index Troponin T Albumin LDL Cholesterol Direct PTH Intact Salicylates Acetaminophen Crossmatch 03/10/19 03/11/19 03/11/19 16:50 00:24 05:02 WBC RBC Hgb Hct MCV MCH MCHC RDW Lymph % (Auto) Webb % (Auto) Eos % (Auto) Lymph # Webb # Eos # Seg Neutrophils % Seg Neuts % (Manual) Lymphocytes % (Manual) Eosinophils % (Manual) Seg Neutrophils # Lymphocytes # (Manual) Eosinophils # (Manual) PT INR D-Dimer POC ABG pH POC ABG pCO2 POC ABG pO2 ABG pO2 ABG HCO3 ABG Base Excess ABG Hemoglobin Oxyhemoglobin Sodium Potassium Chloride Carbon Dioxide BUN Creatinine Glucose POC Glucose 147 H 123 H 120 H Calcium Phosphorus Magnesium ALT Alkaline Phosphatase Total Creatine Kinase CK-MB (CK-2) Rel Index Troponin T Albumin LDL Cholesterol Direct PTH Intact Salicylates Acetaminophen Crossmatch 03/11/19 03/11/19 03/11/19 11:56 12:20 18:37 WBC RBC Hgb Hct MCV MCH MCHC RDW Lymph % (Auto) Webb % (Auto) Eos % (Auto) Lymph # Webb # Eos # Seg Neutrophils % Seg Neuts % (Manual) Lymphocytes % (Manual) Eosinophils % (Manual) Seg Neutrophils # Lymphocytes # (Manual) Eosinophils # (Manual) PT INR D-Dimer POC ABG pH POC ABG pCO2 POC ABG pO2 ABG pO2 ABG HCO3 ABG Base Excess ABG Hemoglobin Oxyhemoglobin Sodium Potassium 5.2 H Chloride Carbon Dioxide BUN Creatinine Glucose POC Glucose 123 H 125 H Calcium Phosphorus Magnesium ALT Alkaline Phosphatase Total Creatine Kinase CK-MB (CK-2) Rel Index Troponin T Albumin LDL Cholesterol Direct PTH Intact Salicylates Acetaminophen Crossmatch 03/11/19 03/12/19 03/12/19 22:52 12:04 18:25 WBC RBC Hgb Hct MCV MCH MCHC RDW Lymph % (Auto) Webb % (Auto) Eos % (Auto) Lymph # Webb # Eos # Seg Neutrophils % Seg Neuts % (Manual) Lymphocytes % (Manual) Eosinophils % (Manual) Seg Neutrophils # Lymphocytes # (Manual) Eosinophils # (Manual) PT INR D-Dimer POC ABG pH POC ABG pCO2 POC ABG pO2 ABG pO2 ABG HCO3 ABG Base Excess ABG Hemoglobin Oxyhemoglobin Sodium Potassium Chloride Carbon Dioxide BUN Creatinine Glucose POC Glucose 110 H 106 H 118 H Calcium Phosphorus Magnesium ALT Alkaline Phosphatase Total Creatine Kinase CK-MB (CK-2) Rel Index Troponin T Albumin LDL Cholesterol Direct PTH Intact Salicylates Acetaminophen Crossmatch 03/12/19 03/13/19 03/13/19 23:36 04:38 04:38 WBC RBC 2.95 L Hgb 7.9 L Hct 24.9 L MCV MCH 27 L MCHC RDW 19.9 H Lymph % (Auto) 11.1 L Webb % (Auto) 8.1 H Eos % (Auto) 4.4 H Lymph # 0.9 L Webb # Eos # Seg Neutrophils % 75.4 H Seg Neuts % (Manual) Lymphocytes % (Manual) Eosinophils % (Manual) Seg Neutrophils # Lymphocytes # (Manual) Eosinophils # (Manual) PT INR D-Dimer POC ABG pH POC ABG pCO2 POC ABG pO2 ABG pO2 ABG HCO3 ABG Base Excess ABG Hemoglobin Oxyhemoglobin Sodium 136 L Potassium 5.1 H Chloride 93.8 L Carbon Dioxide BUN 48 H Creatinine 2.7 H Glucose 102 H POC Glucose 115 H Calcium Phosphorus Magnesium ALT < 5 L Alkaline Phosphatase 143 H Total Creatine Kinase CK-MB (CK-2) Rel Index Troponin T Albumin 2.5 L LDL Cholesterol Direct PTH Intact Salicylates Acetaminophen Crossmatch 03/13/19 03/13/19 03/13/19 05:33 13:37 18:03 WBC RBC Hgb Hct MCV MCH MCHC RDW Lymph % (Auto) Webb % (Auto) Eos % (Auto) Lymph # Webb # Eos # Seg Neutrophils % Seg Neuts % (Manual) Lymphocytes % (Manual) Eosinophils % (Manual) Seg Neutrophils # Lymphocytes # (Manual) Eosinophils # (Manual) PT INR D-Dimer POC ABG pH POC ABG pCO2 POC ABG pO2 ABG pO2 ABG HCO3 ABG Base Excess ABG Hemoglobin Oxyhemoglobin Sodium Potassium Chloride Carbon Dioxide BUN Creatinine Glucose POC Glucose 140 H 150 H 158 H Calcium Phosphorus Magnesium ALT Alkaline Phosphatase Total Creatine Kinase CK-MB (CK-2) Rel Index Troponin T Albumin LDL Cholesterol Direct PTH Intact Salicylates Acetaminophen Crossmatch 03/13/19 03/14/19 03/14/19 23:32 05:24 12:20 WBC RBC Hgb Hct MCV MCH MCHC RDW Lymph % (Auto) Webb % (Auto) Eos % (Auto) Lymph # Webb # Eos # Seg Neutrophils % Seg Neuts % (Manual) Lymphocytes % (Manual) Eosinophils % (Manual) Seg Neutrophils # Lymphocytes # (Manual) Eosinophils # (Manual) PT INR D-Dimer POC ABG pH POC ABG pCO2 POC ABG pO2 ABG pO2 ABG HCO3 ABG Base Excess ABG Hemoglobin Oxyhemoglobin Sodium Potassium Chloride Carbon Dioxide BUN Creatinine Glucose POC Glucose 162 H 146 H 127 H Calcium Phosphorus Magnesium ALT Alkaline Phosphatase Total Creatine Kinase CK-MB (CK-2) Rel Index Troponin T Albumin LDL Cholesterol Direct PTH Intact Salicylates Acetaminophen Crossmatch 03/14/19 03/14/19 03/15/19 18:05 23:57 04:38 WBC 12.8 H RBC 3.11 L Hgb 8.1 L Hct 26.5 L MCV MCH 26 L MCHC 31 L RDW 19.7 H Lymph % (Auto) 4.4 L Webb % (Auto) 7.4 H Eos % (Auto) Lymph # 0.6 L Webb # 0.9 H Eos # Seg Neutrophils % 87.3 H Seg Neuts % (Manual) Lymphocytes % (Manual) Eosinophils % (Manual) Seg Neutrophils # 11.2 H Lymphocytes # (Manual) Eosinophils # (Manual) PT INR D-Dimer POC ABG pH POC ABG pCO2 POC ABG pO2 ABG pO2 ABG HCO3 ABG Base Excess ABG Hemoglobin Oxyhemoglobin Sodium Potassium Chloride Carbon Dioxide BUN Creatinine Glucose POC Glucose 142 H 155 H Calcium Phosphorus Magnesium ALT Alkaline Phosphatase Total Creatine Kinase CK-MB (CK-2) Rel Index Troponin T Albumin LDL Cholesterol Direct PTH Intact Salicylates Acetaminophen Crossmatch 03/15/19 03/15/19 03/15/19 04:38 05:31 11:32 WBC RBC Hgb Hct MCV MCH MCHC RDW Lymph % (Auto) Webb % (Auto) Eos % (Auto) Lymph # Webb # Eos # Seg Neutrophils % Seg Neuts % (Manual) Lymphocytes % (Manual) Eosinophils % (Manual) Seg Neutrophils # Lymphocytes # (Manual) Eosinophils # (Manual) PT INR D-Dimer POC ABG pH POC ABG pCO2 POC ABG pO2 ABG pO2 ABG HCO3 ABG Base Excess ABG Hemoglobin Oxyhemoglobin Sodium 135 L Potassium Chloride 91.9 L Carbon Dioxide BUN 54 H Creatinine 2.8 H Glucose 128 H POC Glucose 160 H 109 H Calcium 11.1 H Phosphorus Magnesium ALT Alkaline Phosphatase 161 H Total Creatine Kinase CK-MB (CK-2) Rel Index Troponin T Albumin 2.3 L LDL Cholesterol Direct PTH Intact Salicylates Acetaminophen Crossmatch 03/15/19 03/15/19 03/16/19 18:15 23:41 05:40 WBC RBC Hgb Hct MCV MCH MCHC RDW Lymph % (Auto) Webb % (Auto) Eos % (Auto) Lymph # Webb # Eos # Seg Neutrophils % Seg Neuts % (Manual) Lymphocytes % (Manual) Eosinophils % (Manual) Seg Neutrophils # Lymphocytes # (Manual) Eosinophils # (Manual) PT INR D-Dimer POC ABG pH POC ABG pCO2 POC ABG pO2 ABG pO2 ABG HCO3 ABG Base Excess ABG Hemoglobin Oxyhemoglobin Sodium Potassium Chloride Carbon Dioxide BUN Creatinine Glucose POC Glucose 151 H 110 H 163 H Calcium Phosphorus Magnesium ALT Alkaline Phosphatase Total Creatine Kinase CK-MB (CK-2) Rel Index Troponin T Albumin LDL Cholesterol Direct PTH Intact Salicylates Acetaminophen Crossmatch 03/16/19 03/16/19 03/16/19 11:55 17:04 23:58 WBC RBC Hgb Hct MCV MCH MCHC RDW Lymph % (Auto) Webb % (Auto) Eos % (Auto) Lymph # Webb # Eos # Seg Neutrophils % Seg Neuts % (Manual) Lymphocytes % (Manual) Eosinophils % (Manual) Seg Neutrophils # Lymphocytes # (Manual) Eosinophils # (Manual) PT INR D-Dimer POC ABG pH POC ABG pCO2 POC ABG pO2 ABG pO2 ABG HCO3 ABG Base Excess ABG Hemoglobin Oxyhemoglobin Sodium Potassium Chloride Carbon Dioxide BUN Creatinine Glucose POC Glucose 114 H 147 H 192 H Calcium Phosphorus Magnesium ALT Alkaline Phosphatase Total Creatine Kinase CK-MB (CK-2) Rel Index Troponin T Albumin LDL Cholesterol Direct PTH Intact Salicylates Acetaminophen Crossmatch 03/17/19 03/17/19 03/17/19 05:53 11:17 17:01 WBC RBC Hgb Hct MCV MCH MCHC RDW Lymph % (Auto) Webb % (Auto) Eos % (Auto) Lymph # Webb # Eos # Seg Neutrophils % Seg Neuts % (Manual) Lymphocytes % (Manual) Eosinophils % (Manual) Seg Neutrophils # Lymphocytes # (Manual) Eosinophils # (Manual) PT INR D-Dimer POC ABG pH POC ABG pCO2 POC ABG pO2 ABG pO2 ABG HCO3 ABG Base Excess ABG Hemoglobin Oxyhemoglobin Sodium Potassium Chloride Carbon Dioxide BUN Creatinine Glucose POC Glucose 151 H 161 H 152 H Calcium Phosphorus Magnesium ALT Alkaline Phosphatase Total Creatine Kinase CK-MB (CK-2) Rel Index Troponin T Albumin LDL Cholesterol Direct PTH Intact Salicylates Acetaminophen Crossmatch 03/17/19 03/18/19 03/18/19 21:47 04:15 04:44 WBC RBC Hgb Hct MCV MCH MCHC RDW Lymph % (Auto) Webb % (Auto) Eos % (Auto) Lymph # Webb # Eos # Seg Neutrophils % Seg Neuts % (Manual) Lymphocytes % (Manual) Eosinophils % (Manual) Seg Neutrophils # Lymphocytes # (Manual) Eosinophils # (Manual) PT INR D-Dimer POC ABG pH POC ABG pCO2 POC ABG pO2 ABG pO2 102.8 H ABG HCO3 28.3 H ABG Base Excess ABG Hemoglobin 10.4 L Oxyhemoglobin 94.5 L Sodium Potassium Chloride Carbon Dioxide BUN Creatinine Glucose POC Glucose 170 H 150 H Calcium Phosphorus Magnesium ALT Alkaline Phosphatase Total Creatine Kinase CK-MB (CK-2) Rel Index Troponin T Albumin LDL Cholesterol Direct PTH Intact Salicylates Acetaminophen Crossmatch 03/18/19 03/18/19 03/18/19 06:38 12:12 17:47 WBC RBC Hgb Hct MCV MCH MCHC RDW Lymph % (Auto) Webb % (Auto) Eos % (Auto) Lymph # Webb # Eos # Seg Neutrophils % Seg Neuts % (Manual) Lymphocytes % (Manual) Eosinophils % (Manual) Seg Neutrophils # Lymphocytes # (Manual) Eosinophils # (Manual) PT INR D-Dimer POC ABG pH 7.510 H POC ABG pCO2 POC ABG pO2 164 H ABG pO2 ABG HCO3 ABG Base Excess ABG Hemoglobin Oxyhemoglobin Sodium Potassium Chloride Carbon Dioxide BUN Creatinine Glucose POC Glucose 145 H 149 H Calcium Phosphorus Magnesium ALT Alkaline Phosphatase Total Creatine Kinase CK-MB (CK-2) Rel Index Troponin T Albumin LDL Cholesterol Direct PTH Intact Salicylates Acetaminophen Crossmatch 03/18/19 03/19/19 03/19/19 23:25 01:11 04:23 WBC 15.6 H RBC 2.51 L Hgb 6.5 L Hct 21.6 L MCV MCH 26 L MCHC 30 L RDW 19.8 H Lymph % (Auto) 6.0 L Webb % (Auto) Eos % (Auto) Lymph # 0.9 L Webb # 1.0 H Eos # Seg Neutrophils % 85.5 H Seg Neuts % (Manual) Lymphocytes % (Manual) Eosinophils % (Manual) Seg Neutrophils # 13.4 H Lymphocytes # (Manual) Eosinophils # (Manual) PT INR D-Dimer POC ABG pH POC ABG pCO2 POC ABG pO2 ABG pO2 78.3 L ABG HCO3 30.7 H ABG Base Excess 5.8 H ABG Hemoglobin 5.8 L Oxyhemoglobin 94.6 L Sodium Potassium Chloride Carbon Dioxide BUN Creatinine Glucose POC Glucose 190 H Calcium Phosphorus Magnesium ALT Alkaline Phosphatase Total Creatine Kinase CK-MB (CK-2) Rel Index Troponin T Albumin LDL Cholesterol Direct PTH Intact Salicylates Acetaminophen Crossmatch 03/19/19 03/19/19 03/19/19 05:22 05:35 08:54 WBC RBC Hgb Hct MCV MCH MCHC RDW Lymph % (Auto) Webb % (Auto) Eos % (Auto) Lymph # Webb # Eos # Seg Neutrophils % Seg Neuts % (Manual) Lymphocytes % (Manual) Eosinophils % (Manual) Seg Neutrophils # Lymphocytes # (Manual) Eosinophils # (Manual) PT INR D-Dimer POC ABG pH POC ABG pCO2 POC ABG pO2 ABG pO2 ABG HCO3 ABG Base Excess ABG Hemoglobin Oxyhemoglobin Sodium Potassium Chloride Carbon Dioxide BUN Creatinine Glucose POC Glucose 167 H Calcium Phosphorus Magnesium ALT Alkaline Phosphatase Total Creatine Kinase CK-MB (CK-2) Rel Index Troponin T Albumin LDL Cholesterol Direct PTH Intact Salicylates Acetaminophen Crossmatch See Detail See Detail 03/19/19 03/19/1903/19/19 12:36 17:02 23:25 WBC RBC Hgb Hct MCV MCH MCHC RDW Lymph % (Auto) Webb % (Auto) Eos % (Auto) Lymph # Webb # Eos # Seg Neutrophils % Seg Neuts % (Manual) Lymphocytes % (Manual) Eosinophils % (Manual) Seg Neutrophils # Lymphocytes # (Manual) Eosinophils # (Manual) PT INR D-Dimer POC ABG pH POC ABG pCO2 POC ABG pO2 ABG pO2 ABG HCO3 ABG Base Excess ABG Hemoglobin Oxyhemoglobin Sodium Potassium Chloride Carbon Dioxide BUN Creatinine Glucose POC Glucose 167 H 135 H 136 H Calcium Phosphorus Magnesium ALT Alkaline Phosphatase Total Creatine Kinase CK-MB (CK-2) Rel Index Troponin T Albumin LDL Cholesterol Direct PTH Intact Salicylates Acetaminophen Crossmatch 03/20/19 03/20/19 03/20/19 05:38 08:40 08:40 WBC RBC 2.61 L Hgb 7.1 L Hct 22.0 L MCV MCH 27 L MCHC RDW 19.6 H Lymph % (Auto) 8.2 L Webb % (Auto) 8.3 H Eos % (Auto) 5.7 H Lymph # 0.8 L Webb # Eos # 0.5 H Seg Neutrophils % 77.3 H Seg Neuts % (Manual) Lymphocytes % (Manual) Eosinophils % (Manual) Seg Neutrophils # Lymphocytes # (Manual) Eosinophils # (Manual) PT INR D-Dimer POC ABG pH POC ABG pCO2 POC ABG pO2 ABG pO2 ABG HCO3 ABG Base Excess ABG Hemoglobin Oxyhemoglobin Sodium Potassium Chloride 95.9 L Carbon Dioxide BUN 69 H Creatinine 2.8 H Glucose 115 H POC Glucose 134 H Calcium 10.5 H Phosphorus Magnesium ALT Alkaline Phosphatase Total Creatine Kinase CK-MB (CK-2) Rel Index Troponin T Albumin LDL Cholesterol Direct PTH Intact Salicylates Acetaminophen Crossmatch 03/20/19 03/20/19 03/20/19 12:13 18:04 23:49 WBC RBC Hgb Hct MCV MCH MCHC RDW Lymph % (Auto) Webb % (Auto) Eos % (Auto) Lymph # Webb # Eos # Seg Neutrophils % Seg Neuts % (Manual) Lymphocytes % (Manual) Eosinophils % (Manual) Seg Neutrophils # Lymphocytes # (Manual) Eosinophils # (Manual) PT INR D-Dimer POC ABG pH POC ABG pCO2 POC ABG pO2 ABG pO2 ABG HCO3 ABG Base Excess ABG Hemoglobin Oxyhemoglobin Sodium Potassium Chloride Carbon Dioxide BUN Creatinine Glucose POC Glucose 144 H 165 H 172 H Calcium Phosphorus Magnesium ALT Alkaline Phosphatase Total Creatine Kinase CK-MB (CK-2) Rel Index Troponin T Albumin LDL Cholesterol Direct PTH Intact Salicylates Acetaminophen Crossmatch 03/21/19 03/21/19 03/21/19 05:00 06:29 06:30 WBC RBC 2.72 L Hgb 7.4 L Hct 22.9 L MCV MCH 27 L MCHC RDW 19.4 H Lymph % (Auto) Webb % (Auto) Eos % (Auto) Lymph # Webb # Eos # Seg Neutrophils % Seg Neuts % (Manual) 81.0 H Lymphocytes % (Manual) 8.0 L Eosinophils % (Manual) 8.0 H Seg Neutrophils # Lymphocytes # (Manual) 0.7 L Eosinophils # (Manual) 0.7 H PT INR D-Dimer POC ABG pH POC ABG pCO2 POC ABG pO2 ABG pO2 ABG HCO3 ABG Base Excess ABG Hemoglobin Oxyhemoglobin Sodium Potassium Chloride Carbon Dioxide 33 H BUN 43 H Creatinine 1.7 H Glucose 145 H POC Glucose 156 H Calcium Phosphorus Magnesium ALT Alkaline Phosphatase 212 H Total Creatine Kinase CK-MB (CK-2) Rel Index Troponin T Albumin 2.2 L LDL Cholesterol Direct PTH Intact Salicylates Acetaminophen Crossmatch 03/21/19 03/21/19 03/22/19 12:02 18:07 00:21 WBC RBC Hgb Hct MCV MCH MCHC RDW Lymph % (Auto) Webb % (Auto) Eos % (Auto) Lymph # Webb # Eos # Seg Neutrophils % Seg Neuts % (Manual) Lymphocytes % (Manual) Eosinophils % (Manual) Seg Neutrophils # Lymphocytes # (Manual) Eosinophils # (Manual) PT INR D-Dimer POC ABG pH POC ABG pCO2 POC ABG pO2 ABG pO2 ABG HCO3 ABG Base Excess ABG Hemoglobin Oxyhemoglobin Sodium Potassium Chloride Carbon Dioxide BUN Creatinine Glucose POC Glucose 163 H 144 H 153 H Calcium Phosphorus Magnesium ALT Alkaline Phosphatase Total Creatine Kinase CK-MB (CK-2) Rel Index Troponin T Albumin LDL Cholesterol Direct PTH Intact Salicylates Acetaminophen Crossmatch 03/22/19 03/22/19 03/22/19 05:23 05:23 05:31 WBC RBC 2.58 L Hgb 7.1 L Hct 21.8 L MCV MCH 27 L MCHC RDW 19.2 H Lymph % (Auto) Webb % (Auto) Eos % (Auto) Lymph # Webb # Eos # Seg Neutrophils % Seg Neuts % (Manual) Lymphocytes % (Manual) Eosinophils % (Manual) Seg Neutrophils # Lymphocytes # (Manual) Eosinophils # (Manual) PT INR D-Dimer POC ABG pH POC ABG pCO2 POC ABG pO2 ABG pO2 ABG HCO3 ABG Base Excess ABG Hemoglobin Oxyhemoglobin Sodium 147 H Potassium Chloride Carbon Dioxide BUN 68 H Creatinine 2.5 H Glucose POC Glucose 116 H Calcium 10.3 H Phosphorus Magnesium ALT Alkaline Phosphatase Total Creatine Kinase CK-MB (CK-2) Rel Index Troponin T Albumin LDL Cholesterol Direct PTH Intact Salicylates Acetaminophen Crossmatch 03/22/19 03/22/19 03/22/19 08:48 12:37 17:35 WBC RBC Hgb Hct MCV MCH MCHC RDW Lymph % (Auto) Webb % (Auto) Eos % (Auto) Lymph # Webb # Eos # Seg Neutrophils % Seg Neuts % (Manual) Lymphocytes % (Manual) Eosinophils % (Manual) Seg Neutrophils # Lymphocytes # (Manual) Eosinophils # (Manual) PT INR D-Dimer POC ABG pH POC ABG pCO2 POC ABG pO2 ABG pO2 ABG HCO3 ABG Base Excess ABG Hemoglobin Oxyhemoglobin Sodium Potassium Chloride Carbon Dioxide BUN Creatinine Glucose POC Glucose 143 H 155 H Calcium Phosphorus Magnesium ALT Alkaline Phosphatase Total Creatine Kinase CK-MB (CK-2) Rel Index Troponin T Albumin LDL Cholesterol Direct PTH Intact Salicylates Acetaminophen Crossmatch See Detail 03/23/19 03/23/19 03/23/19 00:07 04:00 04:00 WBC 11.2 H RBC 2.32 L Hgb 6.4 L Hct 19.7 L* MCV MCH MCHC RDW 19.4 H Lymph % (Auto) Webb % (Auto) Eos % (Auto) Lymph # Webb # Eos # Seg Neutrophils % Seg Neuts % (Manual) Lymphocytes % (Manual) Eosinophils % (Manual) Seg Neutrophils # Lymphocytes # (Manual) Eosinophils # (Manual) PT INR D-Dimer POC ABG pH POC ABG pCO2 POC ABG pO2 ABG pO2 ABG HCO3 ABG Base Excess ABG Hemoglobin Oxyhemoglobin Sodium 147 H Potassium 5.2 H Chloride Carbon Dioxide BUN 86 H Creatinine 3.2 H Glucose 128 H POC Glucose 135 H Calcium 10.3 H Phosphorus Magnesium ALT Alkaline Phosphatase Total Creatine Kinase CK-MB (CK-2) Rel Index Troponin T Albumin LDL Cholesterol Direct PTH Intact Salicylates Acetaminophen Crossmatch 03/23/19 03/23/19 03/23/19 05:21 11:36 11:36 WBC RBC Hgb 7.9 L Hct 25.0 L MCV MCH MCHC RDW Lymph % (Auto) Webb % (Auto) Eos % (Auto) Lymph # Webb # Eos # Seg Neutrophils % Seg Neuts % (Manual) Lymphocytes % (Manual) Eosinophils % (Manual) Seg Neutrophils # Lymphocytes # (Manual) Eosinophils # (Manual) PT INR D-Dimer POC ABG pH POC ABG pCO2 POC ABG pO2 ABG pO2 ABG HCO3 ABG Base Excess ABG Hemoglobin Oxyhemoglobin Sodium Potassium Chloride Carbon Dioxide BUN Creatinine Glucose POC Glucose 132 H 147 H Calcium Phosphorus Magnesium ALT Alkaline Phosphatase Total Creatine Kinase CK-MB (CK-2) Rel Index Troponin T Albumin LDL Cholesterol Direct PTH Intact Salicylates Acetaminophen Crossmatch 03/23/19 03/24/19 03/24/19 17:31 01:22 04:20 WBC 12.2 H RBC 3.05 L Hgb 8.3 L Hct 25.9 L MCV MCH 27 L MCHC RDW 18.7 H Lymph % (Auto) Webb % (Auto) Eos % (Auto) Lymph # Webb # Eos # Seg Neutrophils % Seg Neuts % (Manual) Lymphocytes % (Manual) Eosinophils % (Manual) Seg Neutrophils # Lymphocytes # (Manual) Eosinophils # (Manual) PT INR D-Dimer POC ABG pH POC ABG pCO2 POC ABG pO2 ABG pO2 ABG HCO3 ABG Base Excess ABG Hemoglobin Oxyhemoglobin Sodium Potassium Chloride Carbon Dioxide BUN Creatinine Glucose POC Glucose 182 H 113 H Calcium Phosphorus Magnesium ALT Alkaline Phosphatase Total Creatine Kinase CK-MB (CK-2) Rel Index Troponin T Albumin LDL Cholesterol Direct PTH Intact Salicylates Acetaminophen Crossmatch 03/24/19 03/24/19 03/24/19 04:20 11:59 18:14 WBC RBC Hgb Hct MCV MCH MCHC RDW Lymph % (Auto) Webb % (Auto) Eos % (Auto) Lymph # Webb # Eos # Seg Neutrophils % Seg Neuts % (Manual) Lymphocytes % (Manual) Eosinophils % (Manual) Seg Neutrophils # Lymphocytes # (Manual) Eosinophils # (Manual) PT INR D-Dimer POC ABG pH POC ABG pCO2 POC ABG pO2 ABG pO2 ABG HCO3 ABG Base Excess ABG Hemoglobin Oxyhemoglobin Sodium Potassium Chloride 94.8 L Carbon Dioxide 32 H BUN 53 H Creatinine 2.3 H Glucose POC Glucose 163 H 134 H Calcium Phosphorus Magnesium ALT Alkaline Phosphatase Total Creatine Kinase CK-MB (CK-2) Rel Index Troponin T Albumin LDL Cholesterol Direct PTH Intact Salicylates Acetaminophen Crossmatch 03/24/19 03/25/19 03/25/19 23:15 05:52 12:02 WBC RBC Hgb Hct MCV MCH MCHC RDW Lymph % (Auto) Webb % (Auto) Eos % (Auto) Lymph # Webb # Eos # Seg Neutrophils % Seg Neuts % (Manual) Lymphocytes % (Manual) Eosinophils % (Manual) Seg Neutrophils # Lymphocytes # (Manual) Eosinophils # (Manual) PT INR D-Dimer POC ABG pH POC ABG pCO2 POC ABG pO2 ABG pO2 ABG HCO3 ABG Base Excess ABG Hemoglobin Oxyhemoglobin Sodium Potassium Chloride Carbon Dioxide BUN Creatinine Glucose POC Glucose 129 H 123 H 125 H Calcium Phosphorus Magnesium ALT Alkaline Phosphatase Total Creatine Kinase CK-MB (CK-2) Rel Index Troponin T Albumin LDL Cholesterol Direct PTH Intact Salicylates Acetaminophen Crossmatch 03/25/19 03/26/19 03/26/19 17:27 00:30 05:35 WBC RBC 3.01 L Hgb 8.1 L Hct 25.7 L MCV MCH 27 L MCHC RDW 19.2 H Lymph % (Auto) 11.4 L Webb % (Auto) Eos % (Auto) 8.0 H Lymph # 1.0 L Webb # Eos # 0.7 H Seg Neutrophils % 73.9 H Seg Neuts % (Manual) Lymphocytes % (Manual) Eosinophils % (Manual) Seg Neutrophils # Lymphocytes # (Manual) Eosinophils # (Manual) PT INR D-Dimer POC ABG pH POC ABG pCO2 POC ABG pO2 ABG pO2 ABG HCO3 ABG Base Excess ABG Hemoglobin Oxyhemoglobin Sodium Potassium Chloride Carbon Dioxide BUN Creatinine Glucose POC Glucose 130 H 129 H Calcium Phosphorus Magnesium ALT Alkaline Phosphatase Total Creatine Kinase CK-MB (CK-2) Rel Index Troponin T Albumin LDL Cholesterol Direct PTH Intact Salicylates Acetaminophen Crossmatch 03/26/19 03/26/19 03/26/19 05:35 05:45 12:16 WBC RBC Hgb Hct MCV MCH MCHC RDW Lymph % (Auto) Webb % (Auto) Eos % (Auto) Lymph # Webb # Eos # Seg Neutrophils % Seg Neuts % (Manual) Lymphocytes % (Manual) Eosinophils % (Manual) Seg Neutrophils # Lymphocytes # (Manual) Eosinophils # (Manual) PT INR D-Dimer POC ABG pH POC ABG pCO2 POC ABG pO2 ABG pO2 ABG HCO3 ABG Base Excess ABG Hemoglobin Oxyhemoglobin Sodium Potassium Chloride 94.9 L Carbon Dioxide 31 H BUN 44 H Creatinine 2.0 H Glucose POC Glucose 118 H 107 H Calcium Phosphorus Magnesium ALT Alkaline Phosphatase Total Creatine Kinase CK-MB (CK-2) Rel Index Troponin T Albumin LDL Cholesterol Direct PTH Intact Salicylates Acetaminophen Crossmatch 03/26/19 03/27/19 03/27/19 17:56 00:36 05:37 WBC RBC Hgb Hct MCV MCH MCHC RDW Lymph % (Auto) Webb % (Auto) Eos % (Auto) Lymph # Webb # Eos # Seg Neutrophils % Seg Neuts % (Manual) Lymphocytes % (Manual) Eosinophils % (Manual) Seg Neutrophils # Lymphocytes # (Manual) Eosinophils # (Manual) PT INR D-Dimer POC ABG pH POC ABG pCO2 POC ABG pO2 ABG pO2 ABG HCO3 ABG Base Excess ABG Hemoglobin Oxyhemoglobin Sodium Potassium Chloride Carbon Dioxide BUN Creatinine Glucose POC Glucose 107 H 110 H 122 H Calcium Phosphorus Magnesium ALT Alkaline Phosphatase Total Creatine Kinase CK-MB (CK-2) Rel Index Troponin T Albumin LDL Cholesterol Direct PTH Intact Salicylates Acetaminophen Crossmatch 03/27/19 03/27/19 03/28/19 11:22 18:00 05:17 WBC RBC Hgb Hct MCV MCH MCHC RDW Lymph % (Auto) Webb % (Auto) Eos % (Auto) Lymph # Webb # Eos # Seg Neutrophils % Seg Neuts % (Manual) Lymphocytes % (Manual) Eosinophils % (Manual) Seg Neutrophils # Lymphocytes # (Manual) Eosinophils # (Manual) PT INR D-Dimer POC ABG pH POC ABG pCO2 POC ABG pO2 ABG pO2 ABG HCO3 ABG Base Excess ABG Hemoglobin Oxyhemoglobin Sodium Potassium Chloride Carbon Dioxide BUN Creatinine Glucose POC Glucose 120 H 111 H 107 H Calcium Phosphorus Magnesium ALT Alkaline Phosphatase Total Creatine Kinase CK-MB (CK-2) Rel Index Troponin T Albumin LDL Cholesterol Direct PTH Intact Salicylates Acetaminophen Crossmatch 03/28/19 03/28/1919 12:27 18:08 05:47 WBC RBC Hgb Hct MCV MCH MCHC RDW Lymph % (Auto) Webb % (Auto) Eos % (Auto) Lymph # Webb # Eos # Seg Neutrophils % Seg Neuts % (Manual) Lymphocytes % (Manual) Eosinophils % (Manual) Seg Neutrophils # Lymphocytes # (Manual) Eosinophils # (Manual) PT INR D-Dimer POC ABG pH POC ABG pCO2 POC ABG pO2 ABG pO2 ABG HCO3 ABG Base Excess ABG Hemoglobin Oxyhemoglobin Sodium Potassium Chloride Carbon Dioxide BUN Creatinine Glucose POC Glucose 114 H 121 H 112 H Calcium Phosphorus Magnesium ALT Alkaline Phosphatase Total Creatine Kinase CK-MB (CK-2) Rel Index Troponin T Albumin LDL Cholesterol Direct PTH Intact Salicylates Acetaminophen Crossmatch 03/29/19 03/29/19 03/30/19 12:14 18:08 00:31 WBC RBC Hgb Hct MCV MCH MCHC RDW Lymph % (Auto) Webb % (Auto) Eos % (Auto) Lymph # Webb # Eos # Seg Neutrophils % Seg Neuts % (Manual) Lymphocytes % (Manual) Eosinophils % (Manual) Seg Neutrophils # Lymphocytes # (Manual) Eosinophils # (Manual) PT INR D-Dimer POC ABG pH POC ABG pCO2 POC ABG pO2 ABG pO2 ABG HCO3 ABG Base Excess ABG Hemoglobin Oxyhemoglobin Sodium Potassium Chloride Carbon Dioxide BUN Creatinine Glucose POC Glucose 117 H 140 H 114 H Calcium Phosphorus Magnesium ALT Alkaline Phosphatase Total Creatine Kinase CK-MB (CK-2) Rel Index Troponin T Albumin LDL Cholesterol Direct PTH Intact Salicylates Acetaminophen Crossmatch 03/30/19 03/30/19 03/30/19 10:13 10:13 23:53 WBC RBC 2.81 L Hgb 7.7 L Hct 24.3 L MCV MCH 27 L MCHC RDW 19.0 H Lymph % (Auto) 12.2 L Webb % (Auto) Eos % (Auto) 7.9 H Lymph # 1.0 L Webb # Eos # 0.6 H Seg Neutrophils % 72.3 H Seg Neuts % (Manual) Lymphocytes % (Manual) Eosinophils % (Manual) Seg Neutrophils # Lymphocytes # (Manual) Eosinophils # (Manual) PT INR D-Dimer POC ABG pH POC ABG pCO2 POC ABG pO2 ABG pO2 ABG HCO3 ABG Base Excess ABG Hemoglobin Oxyhemoglobin Sodium Potassium 5.1 H Chloride 96.5 L Carbon Dioxide BUN 73 H Creatinine 3.9 H D Glucose POC Glucose 114 H Calcium 10.3 H Phosphorus 6.30 H Magnesium 2.70 H ALT Alkaline Phosphatase 185 H Total Creatine Kinase CK-MB (CK-2) Rel Index Troponin T Albumin 2.6 L LDL Cholesterol Direct PTH Intact Salicylates Acetaminophen Crossmatch 03/31/19 03/31/19 03/31/19 05:45 10:26 10:26 WBC RBC 3.01 L Hgb 8.2 L Hct 26.4 L MCV MCH 27 L MCHC 31 L RDW 20.3 H Lymph % (Auto) 13.3 L Webb % (Auto) Eos % (Auto) 7.2 H Lymph # 1.1 L Webb # Eos # 0.6 H Seg Neutrophils % 72.1 H Seg Neuts % (Manual) Lymphocytes % (Manual) Eosinophils % (Manual) Seg Neutrophils # Lymphocytes # (Manual) Eosinophils # (Manual) PT INR D-Dimer POC ABG pH POC ABG pCO2 POC ABG pO2 ABG pO2 ABG HCO3 ABG Base Excess ABG Hemoglobin Oxyhemoglobin Sodium Potassium Chloride 96.9 L Carbon Dioxide 33 H BUN 37 H Creatinine 2.4 H Glucose POC Glucose 108 H Calcium 10.3 H Phosphorus Magnesium ALT Alkaline Phosphatase Total Creatine Kinase CK-MB (CK-2) Rel Index Troponin T Albumin LDL Cholesterol Direct PTH Intact Salicylates Acetaminophen Crossmatch 03/31/19 04/01/19 04/01/19 12:38 05:48 12:06 WBC RBC Hgb Hct MCV MCH MCHC RDW Lymph % (Auto) Webb % (Auto) Eos % (Auto) Lymph # Webb # Eos # Seg Neutrophils % Seg Neuts % (Manual) Lymphocytes % (Manual) Eosinophils % (Manual) Seg Neutrophils # Lymphocytes # (Manual) Eosinophils # (Manual) PT INR D-Dimer POC ABG pH POC ABG pCO2 POC ABG pO2 ABG pO2 ABG HCO3 ABG Base Excess ABG Hemoglobin Oxyhemoglobin Sodium Potassium Chloride Carbon Dioxide BUN Creatinine Glucose POC Glucose 108 H 114 H 111 H Calcium Phosphorus Magnesium ALT Alkaline Phosphatase Total Creatine Kinase CK-MB (CK-2) Rel Index Troponin T Albumin LDL Cholesterol Direct PTH Intact Salicylates Acetaminophen Crossmatch 04/01/19 04/02/19 04/04/19 18:24 00:36 23:55 WBC RBC Hgb Hct MCV MCH MCHC RDW Lymph % (Auto) Webb % (Auto) Eos % (Auto) Lymph # Webb # Eos # Seg Neutrophils % Seg Neuts % (Manual) Lymphocytes % (Manual) Eosinophils % (Manual) Seg Neutrophils # Lymphocytes # (Manual) Eosinophils # (Manual) PT INR D-Dimer POC ABG pH POC ABG pCO2 POC ABG pO2 ABG pO2 ABG HCO3 ABG Base Excess ABG Hemoglobin Oxyhemoglobin Sodium Potassium Chloride Carbon Dioxide BUN Creatinine Glucose POC Glucose 113 H 117 H 109 H Calcium Phosphorus Magnesium ALT Alkaline Phosphatase Total Creatine Kinase CK-MB (CK-2) Rel Index Troponin T Albumin LDL Cholesterol Direct PTH Intact Salicylates Acetaminophen Crossmatch 04/06/19 04/06/19 04/06/19 00:11 06:02 23:30 WBC RBC Hgb Hct MCV MCH MCHC RDW Lymph % (Auto) Webb % (Auto) Eos % (Auto) Lymph # Webb # Eos # Seg Neutrophils % Seg Neuts % (Manual) Lymphocytes % (Manual) Eosinophils % (Manual) Seg Neutrophils # Lymphocytes # (Manual) Eosinophils # (Manual) PT INR D-Dimer POC ABG pH POC ABG pCO2 POC ABG pO2 ABG pO2 ABG HCO3 ABG Base Excess ABG Hemoglobin Oxyhemoglobin Sodium Potassium Chloride Carbon Dioxide BUN Creatinine Glucose POC Glucose 116 H 112 H 112 H Calcium Phosphorus Magnesium ALT Alkaline Phosphatase Total Creatine Kinase CK-MB (CK-2) Rel Index Troponin T Albumin LDL Cholesterol Direct PTH Intact Salicylates Acetaminophen Crossmatch 04/08/19 04/08/19 04/08/19 02:23 06:19 13:01 WBC RBC Hgb Hct MCV MCH MCHC RDW Lymph % (Auto) Webb % (Auto) Eos % (Auto) Lymph # Webb # Eos # Seg Neutrophils % Seg Neuts % (Manual) Lymphocytes % (Manual) Eosinophils % (Manual) Seg Neutrophils # Lymphocytes # (Manual) Eosinophils # (Manual) PT INR D-Dimer POC ABG pH POC ABG pCO2 POC ABG pO2 ABG pO2 ABG HCO3 ABG Base Excess ABG Hemoglobin Oxyhemoglobin Sodium Potassium Chloride Carbon Dioxide BUN Creatinine Glucose POC Glucose 144 H 126 H 118 H Calcium Phosphorus Magnesium ALT Alkaline Phosphatase Total Creatine Kinase CK-MB (CK-2) Rel Index Troponin T Albumin LDL Cholesterol Direct PTH Intact Salicylates Acetaminophen Crossmatch 04/08/19 04/09/19 04/10/19 23:28 05:52 06:34 WBC RBC Hgb Hct MCV MCH MCHC RDW Lymph % (Auto) Webb % (Auto) Eos % (Auto) Lymph # Webb # Eos # Seg Neutrophils % Seg Neuts % (Manual) Lymphocytes % (Manual) Eosinophils % (Manual) Seg Neutrophils # Lymphocytes # (Manual) Eosinophils # (Manual) PT INR D-Dimer POC ABG pH POC ABG pCO2 POC ABG pO2 ABG pO2 ABG HCO3 ABG Base Excess ABG Hemoglobin Oxyhemoglobin Sodium Potassium Chloride Carbon Dioxide BUN Creatinine Glucose POC Glucose 119 H 116 H 114 H Calcium Phosphorus Magnesium ALT Alkaline Phosphatase Total Creatine Kinase CK-MB (CK-2) Rel Index Troponin T Albumin LDL Cholesterol Direct PTH Intact Salicylates Acetaminophen Crossmatch 04/10/19 04/10/19 04/11/19 12:34 18:59 00:36 WBC RBC Hgb Hct MCV MCH MCHC RDW Lymph % (Auto) Webb % (Auto) Eos % (Auto) Lymph # Webb # Eos # Seg Neutrophils % Seg Neuts % (Manual) Lymphocytes % (Manual) Eosinophils % (Manual) Seg Neutrophils # Lymphocytes # (Manual) Eosinophils # (Manual) PT INR D-Dimer POC ABG pH POC ABG pCO2 POC ABG pO2 ABG pO2 ABG HCO3 ABG Base Excess ABG Hemoglobin Oxyhemoglobin Sodium Potassium Chloride Carbon Dioxide BUN Creatinine Glucose POC Glucose 112 H 109 H 124 H Calcium Phosphorus Magnesium ALT Alkaline Phosphatase Total Creatine Kinase CK-MB (CK-2) Rel Index Troponin T Albumin LDL Cholesterol Direct PTH Intact Salicylates Acetaminophen Crossmatch 04/11/19 04/11/19 04/12/19 08:01 17:25 02:18 WBC RBC Hgb Hct MCV MCH MCHC RDW Lymph % (Auto) Webb % (Auto) Eos % (Auto) Lymph # Webb # Eos # Seg Neutrophils % Seg Neuts % (Manual) Lymphocytes % (Manual) Eosinophils % (Manual) Seg Neutrophils # Lymphocytes # (Manual) Eosinophils # (Manual) PT INR D-Dimer POC ABG pH POC ABG pCO2 POC ABG pO2 ABG pO2 ABG HCO3 ABG Base Excess ABG Hemoglobin Oxyhemoglobin Sodium Potassium Chloride Carbon Dioxide BUN Creatinine Glucose POC Glucose 118 H 106 H 125 H Calcium Phosphorus Magnesium ALT Alkaline Phosphatase Total Creatine Kinase CK-MB (CK-2) Rel Index Troponin T Albumin LDL Cholesterol Direct PTH Intact Salicylates Acetaminophen Crossmatch 04/12/19 04/12/19 04/12/19 06:24 12:22 17:13 WBC RBC Hgb Hct MCV MCH MCHC RDW Lymph % (Auto) Webb % (Auto) Eos % (Auto) Lymph # Webb # Eos # Seg Neutrophils % Seg Neuts % (Manual) Lymphocytes % (Manual) Eosinophils % (Manual) Seg Neutrophils # Lymphocytes # (Manual) Eosinophils # (Manual) PT INR D-Dimer POC ABG pH POC ABG pCO2 POC ABG pO2 ABG pO2 ABG HCO3 ABG Base Excess ABG Hemoglobin Oxyhemoglobin Sodium Potassium Chloride Carbon Dioxide BUN Creatinine Glucose POC Glucose 128 H 114 H 110 H Calcium Phosphorus Magnesium ALT Alkaline Phosphatase Total Creatine Kinase CK-MB (CK-2) Rel Index Troponin T Albumin LDL Cholesterol Direct PTH Intact Salicylates Acetaminophen Crossmatch 04/13/19 04/13/19 04/13/19 06:59 07:31 07:31 WBC RBC 3.34 L Hgb 8.9 L Hct 28.6 L MCV MCH 27 L MCHC 31 L RDW 19.6 H Lymph % (Auto) Webb % (Auto) Eos % (Auto) Lymph # Webb # Eos # Seg Neutrophils % Seg Neuts % (Manual) Lymphocytes % (Manual) Eosinophils % (Manual) Seg Neutrophils # Lymphocytes # (Manual) Eosinophils # (Manual) PT INR D-Dimer POC ABG pH POC ABG pCO2 POC ABG pO2 ABG pO2 ABG HCO3 ABG Base Excess ABG Hemoglobin Oxyhemoglobin Sodium Potassium Chloride 96.4 L Carbon Dioxide 33 H BUN 66 H Creatinine 4.5 H Glucose 103 H POC Glucose 107 H Calcium Phosphorus Magnesium ALT Alkaline Phosphatase Total Creatine Kinase CK-MB (CK-2) Rel Index Troponin T Albumin LDL Cholesterol Direct PTH Intact Salicylates Acetaminophen Crossmatch 04/13/19 04/14/19 04/14/19 23:43 05:50 13:07 WBC RBC Hgb Hct MCV MCH MCHC RDW Lymph % (Auto) Webb % (Auto) Eos % (Auto) Lymph # Webb # Eos # Seg Neutrophils % Seg Neuts % (Manual) Lymphocytes % (Manual) Eosinophils % (Manual) Seg Neutrophils # Lymphocytes # (Manual) Eosinophils # (Manual) PT INR D-Dimer POC ABG pH POC ABG pCO2 POC ABG pO2 ABG pO2 ABG HCO3 ABG Base Excess ABG Hemoglobin Oxyhemoglobin Sodium Potassium Chloride Carbon Dioxide BUN Creatinine Glucose POC Glucose 119 H 112 H 112 H Calcium Phosphorus Magnesium ALT Alkaline Phosphatase Total Creatine Kinase CK-MB (CK-2) Rel Index Troponin T Albumin LDL Cholesterol Direct PTH Intact Salicylates Acetaminophen Crossmatch 04/14/19 04/15/19 04/15/19 18:35 01:18 05:17 WBC RBC Hgb Hct MCV MCH MCHC RDW Lymph % (Auto) Webb % (Auto) Eos % (Auto) Lymph # Webb # Eos # Seg Neutrophils % Seg Neuts % (Manual) Lymphocytes % (Manual) Eosinophils % (Manual) Seg Neutrophils # Lymphocytes # (Manual) Eosinophils # (Manual) PT INR D-Dimer POC ABG pH POC ABG pCO2 POC ABG pO2 ABG pO2 ABG HCO3 ABG Base Excess ABG Hemoglobin Oxyhemoglobin Sodium Potassium Chloride Carbon Dioxide BUN Creatinine Glucose POC Glucose 114 H 114 H 114 H Calcium Phosphorus Magnesium ALT Alkaline Phosphatase Total Creatine Kinase CK-MB (CK-2) Rel Index Troponin T Albumin LDL Cholesterol Direct PTH Intact Salicylates Acetaminophen Crossmatch 04/15/19 04/15/19 04/16/19 11:50 23:39 05:41 WBC RBC Hgb Hct MCV MCH MCHC RDW Lymph % (Auto) Webb % (Auto) Eos % (Auto) Lymph # Webb # Eos # Seg Neutrophils % Seg Neuts % (Manual) Lymphocytes % (Manual) Eosinophils % (Manual) Seg Neutrophils # Lymphocytes # (Manual) Eosinophils # (Manual) PT INR D-Dimer POC ABG pH POC ABG pCO2 POC ABG pO2 ABG pO2 ABG HCO3 ABG Base Excess ABG Hemoglobin Oxyhemoglobin Sodium Potassium Chloride Carbon Dioxide BUN Creatinine Glucose POC Glucose 109 H 115 H 125 H Calcium Phosphorus Magnesium ALT Alkaline Phosphatase Total Creatine Kinase CK-MB (CK-2) Rel Index Troponin T Albumin LDL Cholesterol Direct PTH Intact Salicylates Acetaminophen Crossmatch 04/16/19 04/17/19 04/17/19 12:53 01:00 12:38 WBC RBC Hgb Hct MCV MCH MCHC RDW Lymph % (Auto) Webb % (Auto) Eos % (Auto) Lymph # Webb # Eos # Seg Neutrophils % Seg Neuts % (Manual) Lymphocytes % (Manual) Eosinophils % (Manual) Seg Neutrophils # Lymphocytes # (Manual) Eosinophils # (Manual) PT INR D-Dimer POC ABG pH POC ABG pCO2 POC ABG pO2 ABG pO2 ABG HCO3 ABG Base Excess ABG Hemoglobin Oxyhemoglobin Sodium Potassium Chloride Carbon Dioxide BUN Creatinine Glucose POC Glucose 121 H 127 H 159 H Calcium Phosphorus Magnesium ALT Alkaline Phosphatase Total Creatine Kinase CK-MB (CK-2) Rel Index Troponin T Albumin LDL Cholesterol Direct PTH Intact Salicylates Acetaminophen Crossmatch 04/17/19 04/17/19 04/18/19 18:27 23:36 07:19 WBC RBC 3.49 L Hgb 9.0 L Hct 29.9 L MCV MCH 26 L MCHC 30 L RDW 20.0 H Lymph % (Auto) Webb % (Auto) Eos % (Auto) Lymph # Webb # Eos # Seg Neutrophils % Seg Neuts % (Manual) Lymphocytes % (Manual) Eosinophils % (Manual) Seg Neutrophils # Lymphocytes # (Manual) Eosinophils # (Manual) PT INR D-Dimer POC ABG pH POC ABG pCO2 POC ABG pO2 ABG pO2 ABG HCO3 ABG Base Excess ABG Hemoglobin Oxyhemoglobin Sodium Potassium Chloride Carbon Dioxide BUN Creatinine Glucose POC Glucose 109 H 134 H Calcium Phosphorus Magnesium ALT Alkaline Phosphatase Total Creatine Kinase CK-MB (CK-2) Rel Index Troponin T Albumin LDL Cholesterol Direct PTH Intact Salicylates Acetaminophen Crossmatch 04/18/19 04/18/19 04/18/19 07:19 12:16 17:09 WBC RBC Hgb Hct MCV MCH MCHC RDW Lymph % (Auto) Webb % (Auto) Eos % (Auto) Lymph # Webb # Eos # Seg Neutrophils % Seg Neuts % (Manual) Lymphocytes % (Manual) Eosinophils % (Manual) Seg Neutrophils # Lymphocytes # (Manual) Eosinophils # (Manual) PT INR D-Dimer POC ABG pH POC ABG pCO2 POC ABG pO2 ABG pO2 ABG HCO3 ABG Base Excess ABG Hemoglobin Oxyhemoglobin Sodium Potassium Chloride Carbon Dioxide BUN 41 H Creatinine 2.9 H Glucose 122 H POC Glucose 125 H 131 H Calcium Phosphorus Magnesium ALT Alkaline Phosphatase Total Creatine Kinase CK-MB (CK-2) Rel Index Troponin T Albumin LDL Cholesterol Direct PTH Intact Salicylates Acetaminophen Crossmatch 04/18/19 04/19/19 04/19/19 23:57 05:55 11:35 WBC RBC Hgb Hct MCV MCH MCHC RDW Lymph % (Auto) Webb % (Auto) Eos % (Auto) Lymph # Webb # Eos # Seg Neutrophils % Seg Neuts % (Manual) Lymphocytes % (Manual) Eosinophils % (Manual) Seg Neutrophils # Lymphocytes # (Manual) Eosinophils # (Manual) PT INR D-Dimer POC ABG pH POC ABG pCO2 POC ABG pO2 ABG pO2 ABG HCO3 ABG Base Excess ABG Hemoglobin Oxyhemoglobin Sodium Potassium Chloride Carbon Dioxide BUN Creatinine Glucose POC Glucose 159 H 144 H 177 H Calcium Phosphorus Magnesium ALT Alkaline Phosphatase Total Creatine Kinase CK-MB (CK-2) Rel Index Troponin T Albumin LDL Cholesterol Direct PTH Intact Salicylates Acetaminophen Crossmatch 04/19/19 04/20/19 04/20/19 16:36 02:05 06:28 WBC RBC Hgb Hct MCV MCH MCHC RDW Lymph % (Auto) Webb % (Auto) Eos % (Auto) Lymph # Webb # Eos # Seg Neutrophils % Seg Neuts % (Manual) Lymphocytes % (Manual) Eosinophils % (Manual) Seg Neutrophils # Lymphocytes # (Manual) Eosinophils # (Manual) PT INR D-Dimer POC ABG pH POC ABG pCO2 POC ABG pO2 ABG pO2 ABG HCO3 ABG Base Excess ABG Hemoglobin Oxyhemoglobin Sodium Potassium Chloride Carbon Dioxide BUN Creatinine Glucose POC Glucose 134 H 142 H 132 H Calcium Phosphorus Magnesium ALT Alkaline Phosphatase Total Creatine Kinase CK-MB (CK-2) Rel Index Troponin T Albumin LDL Cholesterol Direct PTH Intact Salicylates Acetaminophen Crossmatch 04/20/19 04/20/19 04/21/19 12:37 23:34 05:59 WBC RBC Hgb Hct MCV MCH MCHC RDW Lymph % (Auto) Webb % (Auto) Eos % (Auto) Lymph # Webb # Eos # Seg Neutrophils % Seg Neuts % (Manual) Lymphocytes % (Manual) Eosinophils % (Manual) Seg Neutrophils # Lymphocytes # (Manual) Eosinophils # (Manual) PT INR D-Dimer POC ABG pH POC ABG pCO2 POC ABG pO2 ABG pO2 ABG HCO3 ABG Base Excess ABG Hemoglobin Oxyhemoglobin Sodium Potassium Chloride Carbon Dioxide BUN Creatinine Glucose POC Glucose 163 H 166 H 140 H Calcium Phosphorus Magnesium ALT Alkaline Phosphatase Total Creatine Kinase CK-MB (CK-2) Rel Index Troponin T Albumin LDL Cholesterol Direct PTH Intact Salicylates Acetaminophen Crossmatch 04/21/19 04/21/19 04/21/19 12:07 17:22 23:43 WBC RBC Hgb Hct MCV MCH MCHC RDW Lymph % (Auto) Webb % (Auto) Eos % (Auto) Lymph # Webb # Eos # Seg Neutrophils % Seg Neuts % (Manual) Lymphocytes % (Manual) Eosinophils % (Manual) Seg Neutrophils # Lymphocytes # (Manual) Eosinophils # (Manual) PT INR D-Dimer POC ABG pH POC ABG pCO2 POC ABG pO2 ABG pO2 ABG HCO3 ABG Base Excess ABG Hemoglobin Oxyhemoglobin Sodium Potassium Chloride Carbon Dioxide BUN Creatinine Glucose POC Glucose 135 H 141 H 138 H Calcium Phosphorus Magnesium ALT Alkaline Phosphatase Total Creatine Kinase CK-MB (CK-2) Rel Index Troponin T Albumin LDL Cholesterol Direct PTH Intact Salicylates Acetaminophen Crossmatch 04/22/19 04/22/19 04/22/19 05:12 18:24 23:49 WBC RBC Hgb Hct MCV MCH MCHC RDW Lymph % (Auto) Webb % (Auto) Eos % (Auto) Lymph # Webb # Eos # Seg Neutrophils % Seg Neuts % (Manual) Lymphocytes % (Manual) Eosinophils % (Manual) Seg Neutrophils # Lymphocytes # (Manual) Eosinophils # (Manual) PT INR D-Dimer POC ABG pH POC ABG pCO2 POC ABG pO2 ABG pO2 ABG HCO3 ABG Base Excess ABG Hemoglobin Oxyhemoglobin Sodium Potassium Chloride Carbon Dioxide BUN Creatinine Glucose POC Glucose 141 H 137 H 142 H Calcium Phosphorus Magnesium ALT Alkaline Phosphatase Total Creatine Kinase CK-MB (CK-2) Rel Index Troponin T Albumin LDL Cholesterol Direct PTH Intact Salicylates Acetaminophen Crossmatch 04/23/19 04/23/19 04/23/19 05:53 08:13 11:58 WBC RBC Hgb Hct MCV MCH MCHC RDW Lymph % (Auto) Webb % (Auto) Eos % (Auto) Lymph # Webb # Eos # Seg Neutrophils % Seg Neuts % (Manual) Lymphocytes % (Manual) Eosinophils % (Manual) Seg Neutrophils # Lymphocytes # (Manual) Eosinophils # (Manual) PT INR D-Dimer POC ABG pH POC ABG pCO2 POC ABG pO2 ABG pO2 ABG HCO3 ABG Base Excess ABG Hemoglobin Oxyhemoglobin Sodium Potassium Chloride Carbon Dioxide BUN Creatinine Glucose POC Glucose 132 H 154 H 165 H Calcium Phosphorus Magnesium ALT Alkaline Phosphatase Total Creatine Kinase CK-MB (CK-2) Rel Index Troponin T Albumin LDL Cholesterol Direct PTH Intact Salicylates Acetaminophen Crossmatch 04/23/19 04/24/19 04/24/19 16:28 00:28 07:00 WBC RBC Hgb Hct MCV MCH MCHC RDW Lymph % (Auto) Webb % (Auto) Eos % (Auto) Lymph # Webb # Eos # Seg Neutrophils % Seg Neuts % (Manual) Lymphocytes % (Manual) Eosinophils % (Manual) Seg Neutrophils # Lymphocytes # (Manual) Eosinophils # (Manual) PT INR D-Dimer POC ABG pH POC ABG pCO2 POC ABG pO2 ABG pO2 ABG HCO3 ABG Base Excess ABG Hemoglobin Oxyhemoglobin Sodium Potassium Chloride Carbon Dioxide BUN Creatinine Glucose POC Glucose 136 H 140 H 141 H Calcium Phosphorus Magnesium ALT Alkaline Phosphatase Total Creatine Kinase CK-MB (CK-2) Rel Index Troponin T Albumin LDL Cholesterol Direct PTH Intact Salicylates Acetaminophen Crossmatch 04/24/19 04/24/19 04/25/19 12:38 18:57 00:38 WBC RBC Hgb Hct MCV MCH MCHC RDW Lymph % (Auto) Webb % (Auto) Eos % (Auto) Lymph # Webb # Eos # Seg Neutrophils % Seg Neuts % (Manual) Lymphocytes % (Manual) Eosinophils % (Manual) Seg Neutrophils # Lymphocytes # (Manual) Eosinophils # (Manual) PT INR D-Dimer POC ABG pH POC ABG pCO2 POC ABG pO2 ABG pO2 ABG HCO3 ABG Base Excess ABG Hemoglobin Oxyhemoglobin Sodium Potassium Chloride Carbon Dioxide BUN Creatinine Glucose POC Glucose 152 H 166 H 128 H Calcium Phosphorus Magnesium ALT Alkaline Phosphatase Total Creatine Kinase CK-MB (CK-2) Rel Index Troponin T Albumin LDL Cholesterol Direct PTH Intact Salicylates Acetaminophen Crossmatch 04/25/19 04/25/19 04/25/19 05:44 13:43 18:34 WBC RBC Hgb Hct MCV MCH MCHC RDW Lymph % (Auto) Webb % (Auto) Eos % (Auto) Lymph # Webb # Eos # Seg Neutrophils % Seg Neuts % (Manual) Lymphocytes % (Manual) Eosinophils % (Manual) Seg Neutrophils # Lymphocytes # (Manual) Eosinophils # (Manual) PT INR D-Dimer POC ABG pH POC ABG pCO2 POC ABG pO2 ABG pO2 ABG HCO3 ABG Base Excess ABG Hemoglobin Oxyhemoglobin Sodium Potassium Chloride Carbon Dioxide BUN Creatinine Glucose POC Glucose 153 H 186 H 124 H Calcium Phosphorus Magnesium ALT Alkaline Phosphatase Total Creatine Kinase CK-MB (CK-2) Rel Index Troponin T Albumin LDL Cholesterol Direct PTH Intact Salicylates Acetaminophen Crossmatch 04/26/19 04/26/19 04/26/19 00:59 05:52 10:12 WBC 11.5 H RBC 2.84 L Hgb 7.4 L Hct 23.3 L MCV 82 L MCH 26 L MCHC RDW 20.3 H Lymph % (Auto) 7.5 L Webb % (Auto) 7.5 H Eos % (Auto) 5.3 H Lymph # 0.9 L Webb # 0.9 H Eos # 0.6 H Seg Neutrophils % 79.2 H Seg Neuts % (Manual) Lymphocytes % (Manual) Eosinophils % (Manual) Seg Neutrophils # 9.1 H Lymphocytes # (Manual) Eosinophils # (Manual) PT INR D-Dimer POC ABG pH POC ABG pCO2 POC ABG pO2 ABG pO2 ABG HCO3 ABG Base Excess ABG Hemoglobin Oxyhemoglobin Sodium Potassium Chloride Carbon Dioxide BUN Creatinine Glucose POC Glucose 163 H 146 H Calcium Phosphorus Magnesium ALT Alkaline Phosphatase Total Creatine Kinase CK-MB (CK-2) Rel Index Troponin T Albumin LDL Cholesterol Direct PTH Intact Salicylates Acetaminophen Crossmatch 04/26/19 04/26/19 04/26/19 10:12 12:15 19:00 WBC RBC Hgb Hct MCV MCH MCHC RDW Lymph % (Auto) Webb % (Auto) Eos % (Auto) Lymph # Webb # Eos # Seg Neutrophils % Seg Neuts % (Manual) Lymphocytes % (Manual) Eosinophils % (Manual) Seg Neutrophils # Lymphocytes # (Manual) Eosinophils # (Manual) PT INR D-Dimer POC ABG pH POC ABG pCO2 POC ABG pO2 ABG pO2 ABG HCO3 ABG Base Excess ABG Hemoglobin Oxyhemoglobin Sodium 130 L Potassium Chloride 87.4 L Carbon Dioxide BUN 93 H Creatinine 4.2 H Glucose 140 H POC Glucose 155 H 179 H Calcium Phosphorus Magnesium ALT Alkaline Phosphatase Total Creatine Kinase CK-MB (CK-2) Rel Index Troponin T Albumin LDL Cholesterol Direct PTH Intact Salicylates Acetaminophen Crossmatch 04/27/19 04/27/19 04/27/19 00:23 06:34 17:13 WBC RBC Hgb Hct MCV MCH MCHC RDW Lymph % (Auto) Webb % (Auto) Eos % (Auto) Lymph # Webb # Eos # Seg Neutrophils % Seg Neuts % (Manual) Lymphocytes % (Manual) Eosinophils % (Manual) Seg Neutrophils # Lymphocytes # (Manual) Eosinophils # (Manual) PT INR D-Dimer POC ABG pH POC ABG pCO2 POC ABG pO2 ABG pO2 ABG HCO3 ABG Base Excess ABG Hemoglobin Oxyhemoglobin Sodium Potassium Chloride Carbon Dioxide BUN Creatinine Glucose POC Glucose 158 H 140 H 152 H Calcium Phosphorus Magnesium ALT Alkaline Phosphatase Total Creatine Kinase CK-MB (CK-2) Rel Index Troponin T Albumin LDL Cholesterol Direct PTH Intact Salicylates Acetaminophen Crossmatch 04/27/19 04/28/19 04/28/19 23:50 05:18 11:37 WBC RBC Hgb Hct MCV MCH MCHC RDW Lymph % (Auto) Webb % (Auto) Eos % (Auto) Lymph # Webb # Eos # Seg Neutrophils % Seg Neuts % (Manual) Lymphocytes % (Manual) Eosinophils % (Manual) Seg Neutrophils # Lymphocytes # (Manual) Eosinophils # (Manual) PT INR D-Dimer POC ABG pH POC ABG pCO2 POC ABG pO2 ABG pO2 ABG HCO3 ABG Base Excess ABG Hemoglobin Oxyhemoglobin Sodium Potassium Chloride Carbon Dioxide BUN Creatinine Glucose POC Glucose 160 H 145 H 177 H Calcium Phosphorus Magnesium ALT Alkaline Phosphatase Total Creatine Kinase CK-MB (CK-2) Rel Index Troponin T Albumin LDL Cholesterol Direct PTH Intact Salicylates Acetaminophen Crossmatch 04/28/19 04/28/19 04/29/19 18:31 23:47 05:50 WBC RBC Hgb Hct MCV MCH MCHC RDW Lymph % (Auto) Webb % (Auto) Eos % (Auto) Lymph # Webb # Eos # Seg Neutrophils % Seg Neuts % (Manual) Lymphocytes % (Manual) Eosinophils % (Manual) Seg Neutrophils # Lymphocytes # (Manual) Eosinophils # (Manual) PT INR D-Dimer POC ABG pH POC ABG pCO2 POC ABG pO2 ABG pO2 ABG HCO3 ABG Base Excess ABG Hemoglobin Oxyhemoglobin Sodium Potassium Chloride Carbon Dioxide BUN Creatinine Glucose POC Glucose 153 H 117 H 177 H Calcium Phosphorus Magnesium ALT Alkaline Phosphatase Total Creatine Kinase CK-MB (CK-2) Rel Index Troponin T Albumin LDL Cholesterol Direct PTH Intact Salicylates Acetaminophen Crossmatch 04/29/19 04/30/19 04/30/19 17:04 01:02 06:42 WBC RBC Hgb Hct MCV MCH MCHC RDW Lymph % (Auto) Webb % (Auto) Eos % (Auto) Lymph # Webb # Eos # Seg Neutrophils % Seg Neuts % (Manual) Lymphocytes % (Manual) Eosinophils % (Manual) Seg Neutrophils # Lymphocytes # (Manual) Eosinophils # (Manual) PT INR D-Dimer POC ABG pH POC ABG pCO2 POC ABG pO2 ABG pO2 ABG HCO3 ABG Base Excess ABG Hemoglobin Oxyhemoglobin Sodium Potassium Chloride Carbon Dioxide BUN Creatinine Glucose POC Glucose 205 H 143 H 145 H Calcium Phosphorus Magnesium ALT Alkaline Phosphatase Total Creatine Kinase CK-MB (CK-2) Rel Index Troponin T Albumin LDL Cholesterol Direct PTH Intact Salicylates Acetaminophen Crossmatch 04/30/19 04/30/19 04/30/19 11:31 18:12 23:38 WBC RBC Hgb Hct MCV MCH MCHC RDW Lymph % (Auto) Webb % (Auto) Eos % (Auto) Lymph # Webb # Eos # Seg Neutrophils % Seg Neuts % (Manual) Lymphocytes % (Manual) Eosinophils % (Manual) Seg Neutrophils # Lymphocytes # (Manual) Eosinophils # (Manual) PT INR D-Dimer POC ABG pH POC ABG pCO2 POC ABG pO2 ABG pO2 ABG HCO3 ABG Base Excess ABG Hemoglobin Oxyhemoglobin Sodium Potassium Chloride Carbon Dioxide BUN Creatinine Glucose POC Glucose 162 H 117 H 139 H Calcium Phosphorus Magnesium ALT Alkaline Phosphatase Total Creatine Kinase CK-MB (CK-2) Rel Index Troponin T Albumin LDL Cholesterol Direct PTH Intact Salicylates Acetaminophen Crossmatch 05/01/19 06:06 WBC RBC Hgb Hct MCV MCH MCHC RDW Lymph % (Auto) Webb % (Auto) Eos % (Auto) Lymph # Webb # Eos # Seg Neutrophils % Seg Neuts % (Manual) Lymphocytes % (Manual) Eosinophils % (Manual) Seg Neutrophils # Lymphocytes # (Manual) Eosinophils # (Manual) PT INR D-Dimer POC ABG pH POC ABG pCO2 POC ABG pO2 ABG pO2 ABG HCO3 ABG Base Excess ABG Hemoglobin Oxyhemoglobin Sodium Potassium Chloride Carbon Dioxide BUN Creatinine Glucose POC Glucose 150 H Calcium Phosphorus Magnesium ALT Alkaline Phosphatase Total Creatine Kinase CK-MB (CK-2) Rel Index Troponin T Albumin LDL Cholesterol Direct PTH Intact Salicylates Acetaminophen Crossmatch Chest x-ray: report reviewed, image reviewed
[2019-05-02] MEDS: INSULIN REGULAR, HUMAN 100 UNITS/1 ML SUB-Q SCH ×4 (00:51→18:12)
--- NOTE | 2019-05-02 08:43 | Progress Note ---
Assessment and Plan Assessment: * End stage renal disease (outpatient TTS schedule) * Acute hypoxic respiratory failure on mechanical ventilation * Atrial fibrillation * History of CVA * Anemia secondary to ESRD * Secondary hyperparathyroidism Plan * Continue HD MWF schedule for now while inpatient * UF as tolerated * AVG in use. * Nutrition per primary team * Dose medications for renal function * Epogen TID Overall prognosis remains poor; will continue to follow for ESRD needs while inpatient. Subjective Date of service: 05/02/19 Principal diagnosis: Respiratory failure, acute on chronic systolic HF, ESRD Interval history: no acute events Objective - Exam Narrative Exam: General appearance: chronically ill, intubated, frail EENT: normocephalic Neck: ETT in place Respiratory: coarse mechanical breath sounds bilaterally Cardiology: regular, S1S2, no edema Gastrointestinal: PEG and colostomy noted Integumentary: warm and dry Psychiatric: unable to assess - Vital Signs Vital signs: Vital Signs - 12hr 05/01/19 05/01/19 05/02/19 22:00 23:58 00:00 Temperature 98.1 F Pulse Rate 94 H 95 H Respiratory 20 18 Rate Blood Pressure Blood Pressure 124/65 [Right] O2 Sat by Pulse 100 Oximetry O2 Sat by Pulse 99 Oximetry [ Assessment] 05/02/19 05/02/19 04:24 07:44 Temperature 98.2 F 98.5 F Pulse Rate 98 H 99 H Respiratory 18 18 Rate Blood Pressure 125/65 110/60 Blood Pressure [Right] O2 Sat by Pulse 99 100 Oximetry O2 Sat by Pulse Oximetry [ Assessment] - Lab 04/26/19 10:12 04/26/19 10:12 Most recent lab results ABG pH 7.424 pH Units (7.350-7.450) 03/19/19 04:23 ABG pCO2 48.0 mm Hg 03/19/19 04:23 ABG pO2 78.3 mm Hg (80.0-90.0) L 03/19/19 04:23 ABG HCO3 30.7 mmol/L (20.0-26.0) H 03/19/19 04:23 ABG O2 Saturation 97.0 % (95.0-99.0) 03/19/19 04:23 Calcium 10.0 mg/dL (8.4-10.2) 04/26/19 10:12 Phosphorus 4.30 mg/dL (2.5-4.5) D 03/31/19 10:26 Magnesium 2.70 mg/dL (1.7-2.3) H 03/30/19 10:13 Medications & Allergies - Medications Allergies/Adverse Reactions: Allergies haloperidol [From Haldol] Adverse Reaction (Verified 03/13/18 12:10) Unknown haloperidol lactate [From Haldol] Adverse Reaction (Verified 03/13/18 12:10) Unknown Home Medications: Home Medications Medication Instructions Recorded Confirmed Last Taken Type risperiDONE [RisperDAL] 1 mg PO QAM 03/13/18 02/21/19 Unknown History Sertraline [Zoloft] 100 mg PO QDAY 08/26/18 02/21/19 Unknown History Polyethylene Glycol 3350 [Miralax 17 gm PO QDAY #30 packet 11/05/18 02/21/19 Unknown Rx 3350] Aspirin EC [Halfprin EC] 81 mg PO DAILY #30 11/19/18 02/21/19 Unknown Rx Docusate Sodium [Colace CAP] 100 mg PO BID #60 11/19/18 02/21/19 Unknown Rx Folic Acid [Folvite] 1 mg PO DAILY #30 tab 11/19/18 02/21/19 Unknown Rx Famotidine [Pepcid] 20 mg PO DAILY tablet 12/08/18 02/21/19 Unknown Rx Gabapentin [Neurontin] 100 mg PO QHS capsule 12/08/18 02/21/19 Unknown Rx Metoprolol [Lopressor TAB] 50 mg PO BID 30 Days tablet 12/08/18 02/21/19 Unknown Rx Sevelamer Carbonate [Renvela] 800 mg PO TIDWM tablet 12/08/18 02/21/19 Unknown Rx hydrALAZINE [Apresoline TAB] 100 mg PO Q8HR #120 tablet 12/08/18 02/21/19 Unknown Rx Acetaminophen [Acetaminophen TAB] 650 mg PO Q12H PRN 12/15/18 02/21/19 Unknown History Glucagon,Human Recombinant 1 mg IJ Q15MIN PRN 12/15/18 02/21/19 Unknown History [Glucagon Emergency Kit] Insulin Aspart [NovoLOG 100 See Protocol SQ QWEEK 12/15/18 02/21/19 Unknown History UNITS/ML VIAL] Active Medications: Generic Name Dose Route Start Last Admin Trade Name Freq PRN Reason Stop Dose Admin Albuterol/Ipratropium 1 ampul 02/24/19 20:00 05/01/19 20:03 Duoneb *Not For Prn Use* IH 1 ampul TIDRT SANCHEZ Administration Lipase/Protease/Amylase 1 each 04/10/19 15:16 Pancreaze 10,500 Unit FEEDTUBE PRN PRN For Clogged Feeding Tube Epoetin Solitario 20,000 unit 03/24/19 11:17 04/29/19 13:17 Procrit IV 20,000 unit UMA PRN Administration hemodialysis Famotidine 20 mg 02/23/19 10:00 05/01/19 11:04 Pepcid PO 20 mg DAILY SANCHEZ Administration Insulin Human Regular 0 units 02/26/19 12:00 05/02/19 06:29 Humulin R SUB-Q Not Given Q6HR [facility] Protocol Metoprolol Tartrate 2.5 mg 02/28/19 12:06 03/15/19 05:15 Lopressor IV 2.5 mg Q4HR PRN Administration Tachycardia Risperidone 1 mg 02/25/19 13:00 05/01/19 11:05 Risperdal PO 1 mg DAILY SANCHEZ Administration Sertraline HCl 100 mg 02/25/19 13:00 05/01/19 11:05 Zoloft PO 100 mg DAILY SANCHEZ Administration Simple Syrup 15 ml 04/10/19 15:16 Simple Syrup FEEDTUBE PRN PRN Hypoglycemia Simple Syrup 30 ml 04/10/19 15:16 Simple Syrup FEEDTUBE PRN PRN Hypoglycemia Sodium Bicarbonate 325 mg 04/10/19 15:16 Sodium Bicarbonate FEEDTUBE PRN PRN For Clogged Feeding Tube Sodium Hypochlorite 1 applic 04/01/19 13:00 05/01/19 23:13 Dakin's Half Strength TP 1 applicatio BID SANCHEZ Administration
[2019-05-02] MEDS: IPRATROPIUM/ALBUTEROL SULFATE 3 ML AMPUL.NEB IH SCH ×3 (08:52→20:15)
--- NOTE | 2019-05-02 10:03 | Progress Note ---
Assessment and Plan Assessment and plan: Patient is 63-year-old -[place] male patient from [facility] with multiple co-morbidities including blindness, CVA, CHF, PPM/ICD, loop recorder since 2012 that is MRI compatible, IDDM type 2, sepsis left foot ulcer, afib, ESRD with complications on HD TTS, hypertension, AOCD and GERD who presented to the ED with hypotensive after intubation in the emergency room. diagnosed with fluid overload, pleural effusion. Patient has had recurrent admission in the hospital for similar reason and was recently discharged from the hospital following treatment of Severe Sepsis due to Necrotizing Unstagable sacral decubitus ulcer with ostemomylitis, has received multiple courses of broad spectrum abx. Acute hypoxic respiratory failure, status post intubation and ventilatory support, now off vent, on T-piece Acute respiratory failure on mechanical ventilator >96 hrs Extubated ; history of tracheostomy on T piece Current management , nebulizers, Currently on trach/peg placed on 03/03. Now off vent, cont oxygen supplement, improving, on t piece, nebulizers, pulmonary critical following acute on chronic systolic CHF/ Acute pulmonary edema, HD per schedule Dilated CMP, EF 35-40% Continue diuresis, supportive care Acute metabolic encephalopathy, resolved, has baseline Dementia. --ESRD on hemodialysis per schedule nephrology following --Bilateral pleural effusions improved with HD --Permanent atrial fibrillation and flutter and hypercoaguable state Not on anticoagulation because of anemia thrombocytopenia rate control meds optimized --Diabetes mellitus type 2 Accu-Chek sliding scale coverage Insulin as needed --NSTEMI type 2 , Cardiology following --Schizophrenia:stable --Legally blind, supportive care --hypertension, Monitor BP,'s adjust medications as needed --Hypokalemia; corrected --Pulmonary hypertension; continue current management --Dysphagia s/p PEG tube; PEG tubes per protocol --Sacral decub ulcer; Wound care --Severe malnutrition /hypoalbuminemia with FTT: 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, 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 following PEG placed on 01/02/19 --Multiple decubiti, different stages , s/ p colostomy Left 5th finger, stage 4 pressure ulcer Left heel, deep tissue injury Sacrum, stage 4 pressure ulcer POA Continue wound care --History of sacral osteomyelitis and LE ulcers Completed Antibiotics, contact isolation for ESBL Klebsiella pneumonia on wound culture 01/02/19 --Anemia of chronic disease s/p 1 unit of prbc , stable --RUL atelectasis, probably mucous plugging --DVT prophylaxis; Lovenox - COD status; DNR --Very poor prognosis Dispo; Awaiting SNF placement , difficult to place ,unable to find any NH to take patient. History Interval history: Patient was seen and evaluated this morning, Patient is on PEG and trach. No acute events overnight. Hospitalist Physical - Physical exam Narrative exam: Patient is on trach and PEG, ON 5L The patient appeared well nourished and normally developed. Vital signs as documented. Head exam is unremarkable. No scleral icterus . Neck is without jugular venous distension, thyromegaly, or carotid bruits. Lungs are clear to auscultation. Cardiac exam reveals regular rate and Rhythm. First and second heart sounds normal. No murmurs, rubs or gallops. Abdominal exam reveals PEG tube in place, colostomy bag in place. Extremities are nonedematous and both femoral and pedal pulses are normal. 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 - Constitutional Vitals: Temp Pulse Resp BP Pulse Ox 98.5 F 99 H 18 110/60 100 05/02/19 07:44 05/02/19 07:44 05/02/19 07:44 05/02/19 07:44 05/02/19 07:44 General appearance: Present: no acute distress, well-nourished, other (T peace) Results - Labs CBC & Chem 7: 04/26/19 10:12 04/26/19 10:12 Labs: Laboratory Last Values WBC 11.5 K/mm3 (4.5-11.0) H 04/26/19 10:12 RBC 2.84 M/mm3 (3.65-5.03) L 04/26/19 10:12 Hgb 7.4 gm/dl (11.8-15.2) L 04/26/19 10:12 Hct 23.3 % (35.5-45.6) L 04/26/19 10:12 MCV 82 fl (84-94) L 04/26/19 10:12 MCH 26 pg (28-32) L 04/26/19 10:12 MCHC 32 % (32-34) 04/26/19 10:12 RDW 20.3 % (13.2-15.2) H 04/26/19 10:12 Plt Count 350 K/mm3 (140-440) 04/26/19 10:12 Lymph % (Auto) 7.5 % (13.4-35.0) L 04/26/19 10:12 [place] % (Auto) 7.5 % (0.0-7.3) H 04/26/19 10:12 Eos % (Auto) 5.3 % (0.0-4.3) H 04/26/19 10:12 Baso % (Auto) 0.5 % (0.0-1.8) 04/26/19 10:12 Lymph # 0.9 K/mm3 (1.2-5.4) L 04/26/19 10:12 [place] # 0.9 K/mm3 (0.0-0.8) H 04/26/19 10:12 Eos # 0.6 K/mm3 (0.0-0.4) H 04/26/19 10:12 Baso # 0.1 K/mm3 (0.0-0.1) 04/26/19 10:12 Add Manual Diff Complete 03/21/19 06:30 Total Counted 100 03/21/19 06:30 Seg Neutrophils % 79.2 % (40.0-70.0) H 04/26/19 10:12 Seg Neuts % (Manual) 81.0 % (40.0-70.0) H 03/21/19 06:30 Band Neutrophils % 0 % 03/21/19 06:30 Lymphocytes % (Manual) 8.0 % (13.4-35.0) L 03/21/19 06:30 Reactive Lymphs % (Man) 0 % 03/21/19 06:30 Monocytes % (Manual) 1.0 % (0.0-7.3) 03/21/19 06:30 Eosinophils % (Manual) 8.0 % (0.0-4.3) H 03/21/19 06:30 Basophils % (Manual) 1.0 % (0.0-1.8) 03/21/19 06:30 Metamyelocytes % 1.0 % 03/21/19 06:30 Myelocytes % 0 % 03/21/19 06:30 Promyelocytes % 0 % 03/21/19 06:30 Blast Cells % 0 % 03/21/19 06:30 Nucleated RBC % Not Reportable 03/21/19 06:30 Seg Neutrophils # 9.1 K/mm3 (1.8-7.7) H 04/26/19 10:12 Seg Neutrophils # Man 6.7 K/mm3 (1.8-7.7) 03/21/19 06:30 Band Neutrophils # 0.0 K/mm3 03/21/19 06:30 Lymphocytes # (Manual) 0.7 K/mm3 (1.2-5.4) L 03/21/19 06:30 Abs React Lymphs (Man) 0.0 K/mm3 03/21/19 06:30 Monocytes # (Manual) 0.1 K/mm3 (0.0-0.8) 03/21/19 06:30 Eosinophils # (Manual) 0.7 K/mm3 (0.0-0.4) H 03/21/19 06:30 Basophils # (Manual) 0.1 K/mm3 (0.0-0.1) 03/21/19 06:30 Metamyelocytes # 0.1 K/mm3 03/21/19 06:30 Myelocytes # 0.0 K/mm3 03/21/19 06:30 Promyelocytes # 0.0 K/mm3 03/21/19 06:30 Blast Cells # 0.0 K/mm3 03/21/19 06:30 WBC Morphology Not Reportable 03/21/19 06:30 Hypersegmented Neuts Not Reportable 03/21/19 06:30 Hyposegmented Neuts Not Reportable 03/21/19 06:30 Hypogranular Neuts Not Reportable 03/21/19 06:30 Smudge Cells Not Reportable 03/21/19 06:30 Toxic Granulation Not Reportable 03/21/19 06:30 Toxic Vacuolation Not Reportable 03/21/19 06:30 Dohle Bodies Not Reportable 03/21/19 06:30 Pelger-Huet Anomaly Not Reportable 03/21/19 06:30 Tramaine Rods Not Reportable 03/21/19 06:30 Platelet Estimate Consistent w auto 03/21/19 06:30 Clumped Platelets Not Reportable 03/21/19 06:30 Plt Clumps, EDTA Not Reportable 03/21/19 06:30 Large Platelets Not Reportable 03/21/19 06:30 Giant Platelets Not Reportable 03/21/19 06:30 Platelet Satelliting Not Reportable 03/21/19 06:30 Plt Morphology Comment Not Reportable 03/21/19 06:30 RBC Morphology Not Reportable 03/21/19 06:30 Dimorphic RBCs Not Reportable 03/21/19 06:30 Polychromasia Not Reportable 03/21/19 06:30 Hypochromasia Few 03/21/19 06:30 Poikilocytosis Few 03/21/19 06:30 Anisocytosis Few 03/21/19 06:30 Microcytosis Not Reportable 03/21/19 06:30 Macrocytosis Not Reportable 03/21/19 06:30 Spherocytes Not Reportable 03/21/19 06:30 Pappenheimer Bodies Not Reportable 03/21/19 06:30 Sickle Cells Not Reportable 03/21/19 06:30 Target Cells 1+ 03/21/19 06:30 Tear Drop Cells Not Reportable 03/21/19 06:30 Ovalocytes Few 03/21/19 06:30 Helmet Cells Not Reportable 03/21/19 06:30 [place] Bodies Not Reportable 03/21/19 06:30 [place] Rings Not Reportable 03/21/19 06:30 [place] Cells Not Reportable 03/21/19 06:30 Bite Cells Not Reportable 03/21/19 06:30 Crenated Cell Not Reportable 03/21/19 06:30 Elliptocytes Not Reportable 03/21/19 06:30 Acanthocytes (Spur) Not Reportable 03/21/19 06:30 Rouleaux Not Reportable 03/21/19 06:30 Hemoglobin C Crystals Not Reportable 03/21/19 06:30 Schistocytes Not Reportable 03/21/19 06:30 Malaria parasites Not Reportable 03/21/19 06:30 Jose Juan Bodies Not Reportable 03/21/19 06:30 Hem Pathologist Commnt No 03/21/19 06:30 PT 16.3 Sec. (12.2-14.9) H 03/01/19 09:39 INR 1.35 (0.87-1.13) H 03/01/19 09:39 APTT 33.7 Sec. (24.2-36.6) 02/21/19 18:30 D-Dimer 2987.82 ng/mlDDU (0-234) H 02/22/19 05:54 POC ABG pH 7.510 (7.35-7.45) H 03/18/19 06:38 ABG pH 7.424 pH Units (7.350-7.450) 03/19/19 04:23 POC ABG pCO2 38.9 (35-45) 03/18/19 06:38 ABG pCO2 48.0 mm Hg 03/19/19 04:23 POC ABG pO2 164 (80-105) H 03/18/19 06:38 ABG pO2 78.3 mm Hg (80.0-90.0) L 03/19/19 04:23 POC ABG HCO3 31.0 (22-26 mml/L) 03/18/19 06:38 ABG HCO3 30.7 mmol/L (20.0-26.0) H 03/19/19 04:23 POC ABG Total CO2 32 (23-27mmol/L) 03/18/19 06:38 POC ABG O2 Sat 100 03/18/19 06:38 ABG O2 Saturation 97.0 % (95.0-99.0) 03/19/19 04:23 ABG O2 Content 7.9 (0.0-44) 03/19/19 04:23 POC ABG Base Excess 8 ((-2) - (+3)mmol/L) 03/18/19 06:38 ABG Base Excess 5.8 mmol/L (-2.0-3.0) H 03/19/19 04:23 ABG Hemoglobin 5.8 gm/dl (14.0-18.0) L 03/19/19 04:23 ABG Carboxyhemoglobin 2.0 % (0.0-5.0) 03/19/19 04:23 ABG Methemoglobin 0.4 % (0.0-1.5) 03/19/19 04:23 Oxyhemoglobin 94.6 % (95.0-99.0) L 03/19/19 04:23 FiO2 35 % 03/19/19 04:23 Sodium 130 mmol/L (137-145) L 04/26/19 10:12 Potassium 4.2 mmol/L (3.6-5.0) 04/26/19 10:12 Chloride 87.4 mmol/L (98-107) L 04/26/19 10:12 Carbon Dioxide 28 mmol/L (22-30) 04/26/19 10:12 Anion Gap 19 mmol/L 04/26/19 10:12 BUN 93 mg/dL (9-20) H 04/26/19 10:12 Creatinine 4.2 mg/dL (0.8-1.5) H 04/26/19 10:12 Estimated GFR 17 ml/min 04/26/19 10:12 BUN/Creatinine Ratio 22 % 04/26/19 10:12 Glucose 140 mg/dL (75-100) H 04/26/19 10:12 POC Glucose 130 (70-105) H 05/02/19 05:59 Lactic Acid 1.00 mmol/L (0.7-2.0) 02/21/19 20:58 Calcium 10.0 mg/dL (8.4-10.2) 04/26/19 10:12 Phosphorus 4.30 mg/dL (2.5-4.5) D 03/31/19 10:26 Magnesium 2.70 mg/dL (1.7-2.3) H 03/30/19 10:13 Total Bilirubin 0.20 mg/dL (0.1-1.2) 03/30/19 10:13 AST 16 units/L (5-40) 03/30/19 10:13 ALT 11 units/L (7-56) 03/30/19 10:13 Alkaline Phosphatase 185 units/L (35-129) H 03/30/19 10:13 Ammonia 28.0 umol/L (25-60) 02/21/19 20:04 Total Creatine Kinase 64 units/L (55-170) 02/22/19 03:42 CK-MB (CK-2) 3.7 ng/mL (0.0-4.0) 02/22/19 03:42 CK-MB (CK-2) Rel Index 5.7 (0-4) H 02/22/19 03:42 Troponin T 0.193 ng/mL (0.00-0.029) H* 02/22/19 03:42 Total Protein 6.9 g/dL (6.3-8.2) 03/30/19 10:13 Albumin 2.6 g/dL (3.9-5) L 03/30/19 10:13 Albumin/Globulin Ratio 0.6 % 03/30/19 10:13 Triglycerides 51 mg/dL (2-149) 02/21/19 18:30 Cholesterol 82 mg/dL (50-199) 02/21/19 18:30 LDL Cholesterol Direct 36 mg/dL (50-130) L 02/21/19 18:30 HDL Cholesterol 40 mg/dL (40-59) 02/21/19 18:30 Cholesterol/HDL Ratio 2.05 % 02/21/19 18:30 TSH 2.760 mlU/mL (0.270-4.200) 02/21/19 20:04 PTH Intact 267.6 pg/mL (15-65) H 03/02/19 05:15 Salicylates < 0.3 mg/dL (2.8-20.0) L 02/21/19 20:04 Acetaminophen < 5.0 ug/mL (10.0-30.0) L 02/21/19 20:04 Hepatitis A IgM Ab Non-reactive (NonReactive) 04/30/19 14:11 Hep Bs Antigen Non-reactive (Negative) 04/30/19 14:11 Hep B Core IgM Ab Non-reactive (NonReactive) 04/30/19 14:11 Hepatitis C Antibody Non-reactive (NonReactive) 04/30/19 14:11 Blood Type O POSITIVE 03/22/19 08:48 Antibody Screen Negative 03/22/19 08:48 Crossmatch See Detail 03/22/19 08:48 Active Medications - Current Medications Current Medications: Generic Name Dose Route Start Last Admin Trade Name Freq PRN Reason Stop Dose Admin Albuterol/Ipratropium 1 ampul 02/24/19 20:00 05/02/19 08:52 Duoneb *Not For Prn Use* IH 1 ampul TIDRT SANCHEZ Administration Lipase/Protease/Amylase 1 each 04/10/19 15:16 Pancrejewel Barrientos 10,500 Unit FEEDTUBE PRN PRN For Clogged Feeding Tube Epoetin Solitario 20,000 unit 03/24/19 11:17 04/29/19 13:17 Procrit IV 20,000 unit UMA PRN Administration hemodialysis Famotidine 20 mg 02/23/19 10:00 05/01/19 11:04 Pepcid PO 20 mg DAILY SANCHEZ Administration Insulin Human Regular 0 units 02/26/19 12:00 05/02/19 06:29 Humulin R SUB-Q Not Given Q6HR [facility] Protocol Metoprolol Tartrate 2.5 mg 02/28/19 12:06 03/15/19 05:15 Lopressor IV 2.5 mg Q4HR PRN Administration Tachycardia Risperidone 1 mg 02/25/19 13:00 05/01/19 11:05 Risperdal PO 1 mg DAILY SANCHEZ Administration Sertraline HCl 100 mg 02/25/19 13:00 05/01/19 11:05 Zoloft PO 100 mg DAILY SANCHEZ Administration Simple Syrup 15 ml 04/10/19 15:16 Simple Syrup FEEDTUBE PRN PRN Hypoglycemia Simple Syrup 30 ml 04/10/19 15:16 Simple Syrup FEEDTUBE PRN PRN Hypoglycemia Sodium Bicarbonate 325 mg 04/10/19 15:16 Sodium Bicarbonate FEEDTUBE PRN PRN For Clogged Feeding Tube Sodium Hypochlorite 1 applic 04/01/19 13:00 05/01/19 23:13 Dakin's Half Strength TP 1 applicatio BID SANCHEZ Administration Nutrition/Malnutrition Assess - Dietary Evaluation Nutrition/Malnutrition Findings: Nutrition Notes Start: 02/22/19 12:51 Freq: Status: Active Protocol: Document 05/01/19 10:01 PS (Rec: 05/01/19 10:22 PS [id number]) Co-Sign 05/01/19 10:01 LM Nutrition Notes Initial or Follow up Reassessment Current Diagnosis Diabetes,Hypertension Other Pertinent Diagnosis Sacral PU, ESRD on HD (T/Thurs /Sat), Schizophrenia,Blind in L eye,S/P trach Current Diet Nepro at 50 ml/hr w/Abhilash BID Labs/Tests POC Glu 150 Pertinent Medications Reviewed Height 5 ft 10 in Weight 75 kg [place] Body Weight (kg) 75.45 BMI 23.7 Weight change and time frame wt. change noted. Subjective/Other Information Observed Nepro infusing at 50 ml/hr. RN had Abhilash and was going to give it to him BID. Percent of energy/protein needs met: 100%/100% Burn Absent Trauma Absent Minimum of two criteria No #2 Nutrition Diagnosis Increased nutrient needs ( specify in comment below) Diagnosis Progress(for reassessment Continues documentation) #1 Nutrition Diagnosis Inadequate oral intake Diagnosis Progress(for reassessment Continues documentation) Is patient on ventilator? No Is Patient Ambulatory and/or Out of Bed No REE-([facility]-confined to bed) 1860.744 Kcal/Kg value to use for calculation 31 Approximate Energy Requirements Using 2325 kcal/Kg Calculation Used for Recommendations [facility] Additional Notes Protein Needs:90 - 112 g (1.2- 1.5 g/kg) Fluid Needs: 1-1.5 L/day Nutrition Intervention Change Diet Order: Continue TF Nutrition Support: Nepro with Carbsteady 1.8 at 50 ml/hr Flush 200 ml q4hr Kcal 2,160 Protein (gm) 97 Fluid (mL) 872 Add Supplement/Snack (indicate name/kcal Abhilash BID /protein ) Provides kCal: 190 Provides Protein (gm) 5 Goal #1 TF tolerance Goal #2 Continue to meet at least 75% of calorie and protein needs via TF Anticipated Discharge Needs: TF Follow-Up By: 05/08/19 Additional Comments Follow for TF/ONS tolerance
[2019-05-02] MEDS: risperiDONE 1 MG TAB PO SCH (10:27)
[2019-05-02] MEDS: SODIUM HYPOCHLORITE, DAKIN'S 1/2 STRENGTH (0.25%) 473 ML TOPICAL SOLN TP SCH ×2 (10:27→23:08)
[2019-05-02] MEDS: SERTRALINE 100 MG TAB PO SCH (10:27)
[2019-05-02] MEDS: FAMOTIDINE 20 MG TAB PO SCH (10:27)
--- NOTE | 2019-05-02 23:21 | Progress Note ---
Assessment and Plan Imp: 1. Acute encephalopathy, probably metabolic or toxic, resolved 2. A/C systolic CHF 3. Dilated CMP 4. Pulm HTN 5. ESRD 6. RUL atelectasis, probably mucous plugging -> resolved 7. KEON pneumonia, resolved Rec: 1. Chest PT, Duonebs 2. Tolerating Tpiece; monitor; medically I believe his trach should be permanent for airway management but he may require decannulation for placement in a SNF; he is tolerating PMV and goal will be to increase amount of time with PMV in place, then possibly cap or downsize to 4 cuffless trach first; cuffed trach is noted to be at the bedside for emergency purposes 3. Avoid sedatives; resumed psych meds 4. DVT and GI PPx 5. TFs per PEG 6. HD per renal 7. Agree w/ DNR as per family wishes although hospice is the most appropriate course for him Await placement No family present Subjective Date of service: 05/02/19 Principal diagnosis: Respiratory failure, acute on chronic systolic HF, ESRD Interval history: No events. Mentation near usual poor baseline. Does respond to basic questions but cannot give hx. On 28% per Tpiece. On HD. Tolerating PSV well per ST notes. Active Medications Albuterol/Ipratropium (Duoneb *Not For Prn Use*) 1 ampul IH TIDRT [facility] Last Admin: 05/02/19 20:15 Dose: 1 ampul Documented by: Lipase/Protease/Amylase (Pancrejewel Barrientos 10,500 Unit) 1 each FEEDTUBE PRN PRN PRN Reason: For Clogged Feeding Tube Epoetin Solitario (Procrit) 20,000 unit IV UMA PRN PRN Reason: hemodialysis Last Admin: 04/29/19 13:17 Dose: 20,000 unit Documented by: Famotidine (Pepcid) 20 mg PO DAILY [facility] Last Admin: 05/02/19 10:27 Dose: 20 mg Documented by: Insulin Human Regular (Humulin R) 0 units SUB-Q Q6HR [facility]; Protocol Last Admin: 05/02/19 18:12 Dose: Not Given Documented by: Metoprolol Tartrate (Lopressor) 2.5 mg IV Q4HR PRN PRN Reason: Tachycardia Last Admin: 03/15/19 05:15 Dose: 2.5 mg Documented by: Risperidone (Risperdal) 1 mg PO DAILY [facility] Last Admin: 05/02/19 10:27 Dose: 1 mg Documented by: Sertraline HCl (Zoloft) 100 mg PO DAILY [facility] Last Admin: 05/02/19 10:27 Dose: 100 mg Documented by: Simple Syrup (Simple Syrup) 15 ml FEEDTUBE PRN PRN PRN Reason: Hypoglycemia Simple Syrup (Simple Syrup) 30 ml FEEDTUBE PRN PRN PRN Reason: Hypoglycemia Sodium Bicarbonate (Sodium Bicarbonate) 325 mg FEEDTUBE PRN PRN PRN Reason: For Clogged Feeding Tube Sodium Hypochlorite (Dakin's Half Strength) 1 applic TP BID [facility] Last Admin: 05/02/19 23:08 Dose: 1 applicatio Documented by: Objective Vital Signs - 12hr 05/02/19 05/02/19 05/02/19 11:49 15:00 16:25 Temperature 98.0 F Pulse Rate 95 H Pulse Rate [ 94 H Anterior Bilateral Throughout] Pulse Rate [ 96 H Posterior Bilateral Throughout] Respiratory 16 Rate Respiratory 18 Rate [Anterior Bilateral Throughout] Respiratory 18 Rate [Posterior Bilateral Throughout] Blood Pressure 120/58 Blood Pressure [Right] O2 Sat by Pulse 100 Oximetry O2 Sat by Pulse 97 Oximetry [ Assessment] 05/02/19 05/02/19 05/02/19 18:00 20:20 20:23 Temperature 98.2 F 97.6 F Pulse Rate 91 H 91 H Pulse Rate [ 101 H Anterior Bilateral Throughout] Pulse Rate [ 99 H Posterior Bilateral Throughout] Respiratory 16 18 Rate Respiratory 20 Rate [Anterior Bilateral Throughout] Respiratory 20 Rate [Posterior Bilateral Throughout] Blood Pressure 126/65 Blood Pressure 131/64 [Right] O2 Sat by Pulse 96 95 100 Oximetry O2 Sat by Pulse Oximetry [ Assessment] Constitutional: no acute distress, alert Eyes: non-icteric ENT: oropharynx moist Neck: supple Effort: normal Ascultation: Bilateral: other (coarse BS bilaterally) Percussion: Bilateral: not dull Cardiovascular: regular rate and rhythm (no mrg) Gastrointestinal: normoactive bowel sounds, soft, non-tender, non-distended, other (ostomy in place, brown stool) Extremities: no cyanosis, no edema, pink and warm Neurologic: other (mild weakness LUE, o/w nonfocal) Psychiatric: other (unable to assess) CBC and BMP: 04/26/19 10:12 04/26/19 10:12 ABG, PT/INR, D-dimer: ABG POC ABG pH 7.510 (7.35-7.45) H 03/18/19 06:38 ABG pH 7.424 pH Units (7.350-7.450) 03/19/19 04:23 POC ABG pCO2 38.9 (35-45) 03/18/19 06:38 ABG pCO2 48.0 mm Hg 03/19/19 04:23 POC ABG pO2 164 (80-105) H 03/18/19 06:38 ABG pO2 78.3 mm Hg (80.0-90.0) L 03/19/19 04:23 POC ABG HCO3 31.0 (22-26 mml/L) 03/18/19 06:38 POC ABG Total CO2 32 (23-27mmol/L) 03/18/19 06:38 POC ABG O2 Sat 100 03/18/19 06:38 ABG O2 Saturation 97.0 % (95.0-99.0) 03/19/19 04:23 PT/INR, D-dimer PT 16.3 Sec. (12.2-14.9) H 03/01/19 09:39 INR 1.35 (0.87-1.13) H 03/01/19 09:39 D-Dimer 2987.82 ng/mlDDU (0-234) H 02/22/19 05:54 Abnormal lab findings: Abnormal Labs 02/21/19 02/21/19 02/21/19 18:30 18:30 18:30 WBC RBC 3.26 L Hgb 8.8 L Hct 29.0 L MCV MCH 27 L MCHC 30 L RDW 19.1 H Lymph % (Auto) 6.1 L [place] % (Auto) Eos % (Auto) Lymph # 0.4 L [place] # Eos # Seg Neutrophils % 86.2 H Seg Neuts % (Manual) Lymphocytes % (Manual) Eosinophils % (Manual) Seg Neutrophils # Lymphocytes # (Manual) Eosinophils # (Manual) PT INR D-Dimer POC ABG pH POC ABG pCO2 POC ABG pO2 ABG pO2 ABG HCO3 ABG Base Excess ABG Hemoglobin Oxyhemoglobin Sodium 133 L Potassium 3.3 L Chloride 93.1 L Carbon Dioxide 33 H BUN Creatinine Glucose 161 H POC Glucose Calcium Phosphorus Magnesium ALT Alkaline Phosphatase 136 H Total Creatine Kinase 37 L CK-MB (CK-2) Rel Index Troponin T 0.192 H* Albumin 2.4 L LDL Cholesterol Direct 36 L PTH Intact Salicylates Acetaminophen Crossmatch 02/21/19 02/21/19 02/21/19 18:42 20:04 20:04 WBC RBC Hgb Hct MCV MCH MCHC RDW Lymph % (Auto) [place] % (Auto) Eos % (Auto) Lymph # [place] # Eos # Seg Neutrophils % Seg Neuts % (Manual) Lymphocytes % (Manual) Eosinophils % (Manual) Seg Neutrophils # Lymphocytes # (Manual) Eosinophils # (Manual) PT INR D-Dimer POC ABG pH POC ABG pCO2 56.7 H POC ABG pO2 291 H ABG pO2 ABG HCO3 ABG Base Excess ABG Hemoglobin Oxyhemoglobin Sodium Potassium Chloride Carbon Dioxide BUN Creatinine Glucose POC Glucose Calcium Phosphorus Magnesium ALT Alkaline Phosphatase Total Creatine Kinase CK-MB (CK-2) Rel Index Troponin T Albumin LDL Cholesterol Direct PTH Intact Salicylates < 0.3 L Acetaminophen < 5.0 L Crossmatch 02/21/19 02/22/19 02/22/19 22:35 03:42 03:42 WBC RBC 3.20 L Hgb 8.8 L Hct 27.6 L MCV MCH MCHC RDW 18.9 H Lymph % (Auto) 7.4 L [place] % (Auto) Eos % (Auto) Lymph # 0.7 L [place] # Eos # Seg Neutrophils % 84.7 H Seg Neuts % (Manual) Lymphocytes % (Manual) Eosinophils % (Manual) Seg Neutrophils # Lymphocytes # (Manual) Eosinophils # (Manual) PT INR D-Dimer POC ABG pH POC ABG pCO2 POC ABG pO2 ABG pO2 ABG HCO3 ABG Base Excess ABG Hemoglobin Oxyhemoglobin Sodium 134 L Potassium 2.6 L* D Chloride Carbon Dioxide BUN Creatinine Glucose POC Glucose Calcium Phosphorus Magnesium ALT Alkaline Phosphatase Total Creatine Kinase CK-MB (CK-2) Rel Index 5.2 H Troponin T 0.202 H* Albumin LDL Cholesterol Direct PTH Intact Salicylates Acetaminophen Crossmatch 02/22/19 02/22/19 02/22/19 03:42 05:54 09:04 WBC RBC Hgb Hct MCV MCH MCHC RDW Lymph % (Auto) [place] % (Auto) Eos % (Auto) Lymph # [place] # Eos # Seg Neutrophils % Seg Neuts % (Manual) Lymphocytes % (Manual) Eosinophils % (Manual) Seg Neutrophils # Lymphocytes # (Manual) Eosinophils # (Manual) PT INR D-Dimer 2987.82 H POC ABG pH 7.451 H POC ABG pCO2 POC ABG pO2 ABG pO2 ABG HCO3 ABG Base Excess ABG Hemoglobin Oxyhemoglobin Sodium Potassium Chloride Carbon Dioxide BUN Creatinine Glucose POC Glucose Calcium Phosphorus Magnesium ALT Alkaline Phosphatase Total Creatine Kinase CK-MB (CK-2) Rel Index 5.7 H Troponin T 0.193 H* Albumin LDL Cholesterol Direct PTH Intact Salicylates Acetaminophen Crossmatch 02/22/19 02/22/19 02/23/19 10:36 23:56 00:52 WBC RBC Hgb Hct MCV MCH MCHC RDW Lymph % (Auto) [place] % (Auto) Eos % (Auto) Lymph # [place] # Eos # Seg Neutrophils % Seg Neuts % (Manual) Lymphocytes % (Manual) Eosinophils % (Manual) Seg Neutrophils # Lymphocytes # (Manual) Eosinophils # (Manual) PT INR D-Dimer POC ABG pH POC ABG pCO2 POC ABG pO2 ABG pO2 ABG HCO3 ABG Base Excess ABG Hemoglobin Oxyhemoglobin Sodium Potassium 3.1 L Chloride Carbon Dioxide BUN Creatinine Glucose POC Glucose 58 L 111 H Calcium Phosphorus Magnesium ALT Alkaline Phosphatase Total Creatine Kinase CK-MB (CK-2) Rel Index Troponin T Albumin LDL Cholesterol Direct PTH Intact Salicylates Acetaminophen Crossmatch 02/23/19 02/23/19 02/23/19 05:00 06:35 14:26 WBC RBC Hgb Hct MCV MCH MCHC RDW Lymph % (Auto) [place] % (Auto) Eos % (Auto) Lymph # [place] # Eos # Seg Neutrophils % Seg Neuts % (Manual) Lymphocytes % (Manual) Eosinophils % (Manual) Seg Neutrophils # Lymphocytes # (Manual) Eosinophils # (Manual) PT INR D-Dimer POC ABG pH POC ABG pCO2 POC ABG pO2 ABG pO2 ABG HCO3 ABG Base Excess ABG Hemoglobin Oxyhemoglobin Sodium 135 L Potassium 3.1 L Chloride Carbon Dioxide BUN 21 H Creatinine 2.0 H Glucose 57 L POC Glucose 64 L 62 L Calcium Phosphorus Magnesium ALT Alkaline Phosphatase Total Creatine Kinase CK-MB (CK-2) Rel Index Troponin T Albumin LDL Cholesterol Direct PTH Intact Salicylates Acetaminophen Crossmatch 02/24/19 02/24/19 02/24/19 02:11 04:12 04:55 WBC RBC 2.84 L Hgb 7.8 L Hct 24.5 L MCV MCH MCHC RDW 19.5 H Lymph % (Auto) [place] % (Auto) Eos % (Auto) Lymph # [place] # Eos # Seg Neutrophils % Seg Neuts % (Manual) Lymphocytes % (Manual) Eosinophils % (Manual) Seg Neutrophils # Lymphocytes # (Manual) Eosinophils # (Manual) PT INR D-Dimer POC ABG pH 7.511 H POC ABG pCO2 33.9 L POC ABG pO2 62 L ABG pO2 ABG HCO3 ABG Base Excess ABG Hemoglobin Oxyhemoglobin Sodium Potassium Chloride Carbon Dioxide BUN Creatinine Glucose POC Glucose 69 L Calcium Phosphorus Magnesium ALT Alkaline Phosphatase Total Creatine Kinase CK-MB (CK-2) Rel Index Troponin T Albumin LDL Cholesterol Direct PTH Intact Salicylates Acetaminophen Crossmatch 02/24/19 02/24/19 02/25/19 04:55 05:41 04:45 WBC RBC Hgb Hct MCV MCH MCHC RDW Lymph % (Auto) [place] % (Auto) Eos % (Auto) Lymph # [place] # Eos # Seg Neutrophils % Seg Neuts % (Manual) Lymphocytes % (Manual) Eosinophils % (Manual) Seg Neutrophils # Lymphocytes # (Manual) Eosinophils # (Manual) PT INR D-Dimer POC ABG pH 7.466 H POC ABG pCO2 POC ABG pO2 75 L ABG pO2 ABG HCO3 ABG Base Excess ABG Hemoglobin Oxyhemoglobin Sodium Potassium Chloride Carbon Dioxide BUN Creatinine 1.8 H Glucose 73 L POC Glucose 127 H Calcium Phosphorus Magnesium ALT Alkaline Phosphatase Total Creatine Kinase CK-MB (CK-2) Rel Index Troponin T Albumin LDL Cholesterol Direct PTH Intact Salicylates Acetaminophen Crossmatch 02/25/19 02/25/19 02/26/19 16:34 21:33 03:45 WBC RBC 2.96 L Hgb 8.0 L Hct 25.8 L MCV MCH 27 L MCHC 31 L RDW 20.0 H Lymph % (Auto) [place] % (Auto) Eos % (Auto) Lymph # [place] # Eos # Seg Neutrophils % Seg Neuts % (Manual) Lymphocytes % (Manual) Eosinophils % (Manual) Seg Neutrophils # Lymphocytes # (Manual) Eosinophils # (Manual) PT INR D-Dimer POC ABG pH POC ABG pCO2 POC ABG pO2 ABG pO2 ABG HCO3 ABG Base Excess ABG Hemoglobin Oxyhemoglobin Sodium Potassium Chloride Carbon Dioxide BUN Creatinine Glucose POC Glucose 141 H 106 H Calcium Phosphorus Magnesium ALT Alkaline Phosphatase Total Creatine Kinase CK-MB (CK-2) Rel Index Troponin T Albumin LDL Cholesterol Direct PTH Intact Salicylates Acetaminophen Crossmatch 02/26/19 02/26/19 02/26/19 03:45 04:13 07:53 WBC RBC Hgb Hct MCV MCH MCHC RDW Lymph % (Auto) [place] % (Auto) Eos % (Auto) Lymph # [place] # Eos # Seg Neutrophils % Seg Neuts % (Manual) Lymphocytes % (Manual) Eosinophils % (Manual) Seg Neutrophils # Lymphocytes # (Manual) Eosinophils # (Manual) PT INR D-Dimer POC ABG pH 7.470 H POC ABG pCO2 POC ABG pO2 ABG pO2 ABG HCO3 ABG Base Excess ABG Hemoglobin Oxyhemoglobin Sodium Potassium Chloride Carbon Dioxide BUN Creatinine 1.8 H Glucose POC Glucose 110 H Calcium Phosphorus Magnesium ALT Alkaline Phosphatase Total Creatine Kinase CK-MB (CK-2) Rel Index Troponin T Albumin LDL Cholesterol Direct PTH Intact Salicylates Acetaminophen Crossmatch 02/26/19 02/26/19 02/27/19 11:56 17:43 00:12 WBC RBC Hgb Hct MCV MCH MCHC RDW Lymph % (Auto) [place] % (Auto) Eos % (Auto) Lymph # [place] # Eos # Seg Neutrophils % Seg Neuts % (Manual) Lymphocytes % (Manual) Eosinophils % (Manual) Seg Neutrophils # Lymphocytes # (Manual) Eosinophils # (Manual) PT INR D-Dimer POC ABG pH POC ABG pCO2 POC ABG pO2 ABG pO2 ABG HCO3 ABG Base Excess ABG Hemoglobin Oxyhemoglobin Sodium Potassium Chloride Carbon Dioxide BUN Creatinine Glucose POC Glucose 112 H 127 H 127 H Calcium Phosphorus Magnesium ALT Alkaline Phosphatase Total Creatine Kinase CK-MB (CK-2) Rel Index Troponin T Albumin LDL Cholesterol Direct PTH Intact Salicylates Acetaminophen Crossmatch 02/27/19 02/27/19 02/27/19 04:35 13:15 18:02 WBC RBC Hgb Hct MCV MCH MCHC RDW Lymph % (Auto) [place] % (Auto) Eos % (Auto) Lymph # [place] # Eos # Seg Neutrophils % Seg Neuts % (Manual) Lymphocytes % (Manual) Eosinophils % (Manual) Seg Neutrophils # Lymphocytes # (Manual) Eosinophils # (Manual) PT INR D-Dimer POC ABG pH 7.483 H POC ABG pCO2 POC ABG pO2 61 L ABG pO2 ABG HCO3 ABG Base Excess ABG Hemoglobin Oxyhemoglobin Sodium Potassium Chloride Carbon Dioxide BUN Creatinine Glucose POC Glucose 143 H 106 H Calcium Phosphorus Magnesium ALT Alkaline Phosphatase Total Creatine Kinase CK-MB (CK-2) Rel Index Troponin T Albumin LDL Cholesterol Direct PTH Intact Salicylates Acetaminophen Crossmatch 02/28/19 02/28/19 02/28/19 05:50 11:59 17:52 WBC RBC Hgb Hct MCV MCH MCHC RDW Lymph % (Auto) [place] % (Auto) Eos % (Auto) Lymph # [place] # Eos # Seg Neutrophils % Seg Neuts % (Manual) Lymphocytes % (Manual) Eosinophils % (Manual) Seg Neutrophils # Lymphocytes # (Manual) Eosinophils # (Manual) PT INR D-Dimer POC ABG pH POC ABG pCO2 POC ABG pO2 ABG pO2 ABG HCO3 ABG Base Excess ABG Hemoglobin Oxyhemoglobin Sodium Potassium Chloride Carbon Dioxide BUN Creatinine Glucose POC Glucose 134 H 128 H 142 H Calcium Phosphorus Magnesium ALT Alkaline Phosphatase Total Creatine Kinase CK-MB (CK-2) Rel Index Troponin T Albumin LDL Cholesterol Direct PTH Intact Salicylates Acetaminophen Crossmatch 02/28/19 03/01/19 03/01/19 23:13 05:40 09:39 WBC RBC Hgb Hct MCV MCH MCHC RDW Lymph % (Auto) [place] % (Auto) Eos % (Auto) Lymph # [place] # Eos # Seg Neutrophils % Seg Neuts % (Manual) Lymphocytes % (Manual) Eosinophils % (Manual) Seg Neutrophils # Lymphocytes # (Manual) Eosinophils # (Manual) PT 16.3 H INR 1.35 H D-Dimer POC ABG pH POC ABG pCO2 POC ABG pO2 ABG pO2 ABG HCO3 ABG Base Excess ABG Hemoglobin Oxyhemoglobin Sodium Potassium Chloride Carbon Dioxide BUN Creatinine Glucose POC Glucose 112 H 111 H Calcium Phosphorus Magnesium ALT Alkaline Phosphatase Total Creatine Kinase CK-MB (CK-2) Rel Index Troponin T Albumin LDL Cholesterol Direct PTH Intact Salicylates Acetaminophen Crossmatch 03/01/19 03/01/19 03/01/19 11:56 13:54 17:59 WBC RBC Hgb Hct MCV MCH MCHC RDW Lymph % (Auto) [place] % (Auto) Eos % (Auto) Lymph # [place] # Eos # Seg Neutrophils % Seg Neuts % (Manual) Lymphocytes % (Manual) Eosinophils % (Manual) Seg Neutrophils # Lymphocytes # (Manual) Eosinophils # (Manual) PT INR D-Dimer POC ABG pH POC ABG pCO2 POC ABG pO2 ABG pO2 ABG HCO3 ABG Base Excess ABG Hemoglobin Oxyhemoglobin Sodium Potassium Chloride Carbon Dioxide BUN 33 H Creatinine 2.8 H D Glucose 176 H POC Glucose 199 H 147 H Calcium Phosphorus Magnesium ALT Alkaline Phosphatase Total Creatine Kinase CK-MB (CK-2) Rel Index Troponin T Albumin LDL Cholesterol Direct PTH Intact Salicylates Acetaminophen Crossmatch 03/02/19 03/02/19 03/02/19 05:15 05:15 05:15 WBC RBC 2.73 L Hgb 7.4 L Hct 23.0 L MCV MCH 27 L MCHC RDW 19.9 H Lymph % (Auto) [place] % (Auto) 7.9 H Eos % (Auto) 7.6 H Lymph # 1.0 L [place] # Eos # 0.5 H Seg Neutrophils % Seg Neuts % (Manual) Lymphocytes % (Manual) Eosinophils % (Manual) Seg Neutrophils # Lymphocytes # (Manual) Eosinophils # (Manual) PT INR D-Dimer POC ABG pH POC ABG pCO2 POC ABG pO2 ABG pO2 ABG HCO3 ABG Base Excess ABG Hemoglobin Oxyhemoglobin Sodium Potassium Chloride Carbon Dioxide BUN 43 H Creatinine 3.2 H Glucose POC Glucose Calcium Phosphorus 2.30 L Magnesium ALT Alkaline Phosphatase Total Creatine Kinase CK-MB (CK-2) Rel Index Troponin T Albumin LDL Cholesterol Direct PTH Intact 267.6 H Salicylates Acetaminophen Crossmatch 03/02/19 03/02/19 03/03/19 12:32 18:20 13:30 WBC RBC Hgb Hct MCV MCH MCHC RDW Lymph % (Auto) [place] % (Auto) Eos % (Auto) Lymph # [place] # Eos # Seg Neutrophils % Seg Neuts % (Manual) Lymphocytes % (Manual) Eosinophils % (Manual) Seg Neutrophils # Lymphocytes # (Manual) Eosinophils # (Manual) PT INR D-Dimer POC ABG pH POC ABG pCO2 POC ABG pO2 ABG pO2 ABG HCO3 ABG Base Excess ABG Hemoglobin Oxyhemoglobin Sodium Potassium Chloride 97.3 L Carbon Dioxide BUN 26 H Creatinine 2.2 H Glucose 73 L POC Glucose 111 H 156 H Calcium Phosphorus Magnesium ALT Alkaline Phosphatase Total Creatine Kinase CK-MB (CK-2) Rel Index Troponin T Albumin LDL Cholesterol Direct PTH Intact Salicylates Acetaminophen Crossmatch 03/04/19 03/04/19 03/04/19 00:02 05:37 05:40 WBC RBC 2.63 L Hgb 7.2 L Hct 22.2 L MCV MCH MCHC RDW 20.2 H Lymph % (Auto) 10.5 L [place] % (Auto) Eos % (Auto) 4.6 H Lymph # 0.7 L [place] # Eos # Seg Neutrophils % 76.9 H Seg Neuts % (Manual) Lymphocytes % (Manual) Eosinophils % (Manual) Seg Neutrophils # Lymphocytes # (Manual) Eosinophils # (Manual) PT INR D-Dimer POC ABG pH POC ABG pCO2 POC ABG pO2 ABG pO2 ABG HCO3 ABG Base Excess ABG Hemoglobin Oxyhemoglobin Sodium Potassium Chloride Carbon Dioxide BUN Creatinine Glucose POC Glucose 136 H 123 H Calcium Phosphorus Magnesium ALT Alkaline Phosphatase Total Creatine Kinase CK-MB (CK-2) Rel Index Troponin T Albumin LDL Cholesterol Direct PTH Intact Salicylates Acetaminophen Crossmatch 03/04/19 03/04/19 03/04/19 05:40 11:39 23:20 WBC RBC Hgb Hct MCV MCH MCHC RDW Lymph % (Auto) [place] % (Auto) Eos % (Auto) Lymph # [place] # Eos # Seg Neutrophils % Seg Neuts % (Manual) Lymphocytes % (Manual) Eosinophils % (Manual) Seg Neutrophils # Lymphocytes # (Manual) Eosinophils # (Manual) PT INR D-Dimer POC ABG pH POC ABG pCO2 POC ABG pO2 ABG pO2 ABG HCO3 ABG Base Excess ABG Hemoglobin Oxyhemoglobin Sodium Potassium Chloride Carbon Dioxide BUN 34 H Creatinine 2.7 H Glucose 114 H POC Glucose 175 H 151 H Calcium Phosphorus Magnesium ALT Alkaline Phosphatase Total Creatine Kinase CK-MB (CK-2) Rel Index Troponin T Albumin LDL Cholesterol Direct PTH Intact Salicylates Acetaminophen Crossmatch 03/05/19 03/05/19 03/05/19 05:37 12:08 17:11 WBC RBC Hgb Hct MCV MCH MCHC RDW Lymph % (Auto) [place] % (Auto) Eos % (Auto) Lymph # [place] # Eos # Seg Neutrophils % Seg Neuts % (Manual) Lymphocytes % (Manual) Eosinophils % (Manual) Seg Neutrophils # Lymphocytes # (Manual) Eosinophils # (Manual) PT INR D-Dimer POC ABG pH POC ABG pCO2 POC ABG pO2 ABG pO2 ABG HCO3 ABG Base Excess ABG Hemoglobin Oxyhemoglobin Sodium Potassium Chloride Carbon Dioxide BUN Creatinine Glucose POC Glucose 134 H 135 H 135 H Calcium Phosphorus Magnesium ALT Alkaline Phosphatase Total Creatine Kinase CK-MB (CK-2) Rel Index Troponin T Albumin LDL Cholesterol Direct PTH Intact Salicylates Acetaminophen Crossmatch 03/06/19 03/06/19 03/06/19 00:16 13:05 18:09 WBC RBC Hgb Hct MCV MCH MCHC RDW Lymph % (Auto) [place] % (Auto) Eos % (Auto) Lymph # [place] # Eos # Seg Neutrophils % Seg Neuts % (Manual) Lymphocytes % (Manual) Eosinophils % (Manual) Seg Neutrophils # Lymphocytes # (Manual) Eosinophils # (Manual) PT INR D-Dimer POC ABG pH POC ABG pCO2 POC ABG pO2 ABG pO2 ABG HCO3 ABG Base Excess ABG Hemoglobin Oxyhemoglobin Sodium Potassium Chloride Carbon Dioxide BUN Creatinine Glucose POC Glucose 117 H 113 H 131 H Calcium Phosphorus Magnesium ALT Alkaline Phosphatase Total Creatine Kinase CK-MB (CK-2) Rel Index Troponin T Albumin LDL Cholesterol Direct PTH Intact Salicylates Acetaminophen Crossmatch 03/07/19 03/08/19 03/08/19 05:25 05:33 16:00 WBC RBC 2.44 L Hgb 6.6 L Hct 20.8 L MCV MCH 27 L MCHC RDW 19.2 H Lymph % (Auto) [place] % (Auto) Eos % (Auto) 8.6 H Lymph # 0.8 L [place] # Eos # 0.5 H Seg Neutrophils % 70.7 H Seg Neuts % (Manual) Lymphocytes % (Manual) Eosinophils % (Manual) Seg Neutrophils # Lymphocytes # (Manual) Eosinophils # (Manual) PT INR D-Dimer POC ABG pH POC ABG pCO2 POC ABG pO2 ABG pO2 ABG HCO3 ABG Base Excess ABG Hemoglobin Oxyhemoglobin Sodium Potassium Chloride Carbon Dioxide BUN Creatinine Glucose POC Glucose 106 H 108 H Calcium Phosphorus Magnesium ALT Alkaline Phosphatase Total Creatine Kinase CK-MB (CK-2) Rel Index Troponin T Albumin LDL Cholesterol Direct PTH Intact Salicylates Acetaminophen Crossmatch 03/08/19 03/08/19 03/08/19 16:00 18:38 Unknown WBC RBC Hgb Hct MCV MCH MCHC RDW Lymph % (Auto) [place] % (Auto) Eos % (Auto) Lymph # [place] # Eos # Seg Neutrophils % Seg Neuts % (Manual) Lymphocytes % (Manual) Eosinophils % (Manual) Seg Neutrophils # Lymphocytes # (Manual) Eosinophils # (Manual) PT INR D-Dimer POC ABG pH POC ABG pCO2 POC ABG pO2 ABG pO2 ABG HCO3 ABG Base Excess ABG Hemoglobin Oxyhemoglobin Sodium Potassium 5.4 H D Chloride Carbon Dioxide BUN 47 H Creatinine 2.6 H Glucose POC Glucose 123 H Calcium Phosphorus Magnesium ALT < 5 L Alkaline Phosphatase Total Creatine Kinase CK-MB (CK-2) Rel Index Troponin T Albumin 2.2 L LDL Cholesterol Direct PTH Intact Salicylates Acetaminophen Crossmatch See Detail 03/09/19 03/09/19 03/09/19 10:48 12:28 13:53 WBC RBC 2.85 L Hgb 7.7 L Hct 24.2 L MCV MCH 27 L MCHC RDW 18.7 H Lymph % (Auto) [place] % (Auto) Eos % (Auto) Lymph # [place] # Eos # Seg Neutrophils % Seg Neuts % (Manual) Lymphocytes % (Manual) Eosinophils % (Manual) Seg Neutrophils # Lymphocytes # (Manual) Eosinophils # (Manual) PT INR D-Dimer POC ABG pH POC ABG pCO2 POC ABG pO2 ABG pO2 ABG HCO3 30.5 H ABG Base Excess 5.6 H ABG Hemoglobin 8.1 L Oxyhemoglobin 93.8 L Sodium Potassium Chloride Carbon Dioxide BUN Creatinine Glucose POC Glucose 114 H Calcium Phosphorus Magnesium ALT Alkaline Phosphatase Total Creatine Kinase CK-MB (CK-2) Rel Index Troponin T Albumin LDL Cholesterol Direct PTH Intact Salicylates Acetaminophen Crossmatch 03/09/19 03/09/19 03/10/19 17:58 23:53 12:01 WBC RBC Hgb Hct MCV MCH MCHC RDW Lymph % (Auto) [place] % (Auto) Eos % (Auto) Lymph # [place] # Eos # Seg Neutrophils % Seg Neuts % (Manual) Lymphocytes % (Manual) Eosinophils % (Manual) Seg Neutrophils # Lymphocytes # (Manual) Eosinophils # (Manual) PT INR D-Dimer POC ABG pH POC ABG pCO2 POC ABG pO2 ABG pO2 ABG HCO3 ABG Base Excess ABG Hemoglobin Oxyhemoglobin Sodium Potassium Chloride Carbon Dioxide BUN Creatinine Glucose POC Glucose 108 H 128 H 144 H Calcium Phosphorus Magnesium ALT Alkaline Phosphatase Total Creatine Kinase CK-MB (CK-2) Rel Index Troponin T Albumin LDL Cholesterol Direct PTH Intact Salicylates Acetaminophen Crossmatch 03/10/19 03/11/19 03/11/19 16:50 00:24 05:02 WBC RBC Hgb Hct MCV MCH MCHC RDW Lymph % (Auto) [place] % (Auto) Eos % (Auto) Lymph # [place] # Eos # Seg Neutrophils % Seg Neuts % (Manual) Lymphocytes % (Manual) Eosinophils % (Manual) Seg Neutrophils # Lymphocytes # (Manual) Eosinophils # (Manual) PT INR D-Dimer POC ABG pH POC ABG pCO2 POC ABG pO2 ABG pO2 ABG HCO3 ABG Base Excess ABG Hemoglobin Oxyhemoglobin Sodium Potassium Chloride Carbon Dioxide BUN Creatinine Glucose POC Glucose 147 H 123 H 120 H Calcium Phosphorus Magnesium ALT Alkaline Phosphatase Total Creatine Kinase CK-MB (CK-2) Rel Index Troponin T Albumin LDL Cholesterol Direct PTH Intact Salicylates Acetaminophen Crossmatch 03/11/19 03/11/19 03/11/19 11:56 12:20 18:37 WBC RBC Hgb Hct MCV MCH MCHC RDW Lymph % (Auto) [place] % (Auto) Eos % (Auto) Lymph # [place] # Eos # Seg Neutrophils % Seg Neuts % (Manual) Lymphocytes % (Manual) Eosinophils % (Manual) Seg Neutrophils # Lymphocytes # (Manual) Eosinophils # (Manual) PT INR D-Dimer POC ABG pH POC ABG pCO2 POC ABG pO2 ABG pO2 ABG HCO3 ABG Base Excess ABG Hemoglobin Oxyhemoglobin Sodium Potassium 5.2 H Chloride Carbon Dioxide BUN Creatinine Glucose POC Glucose 123 H 125 H Calcium Phosphorus Magnesium ALT Alkaline Phosphatase Total Creatine Kinase CK-MB (CK-2) Rel Index Troponin T Albumin LDL Cholesterol Direct PTH Intact Salicylates Acetaminophen Crossmatch 03/11/19 03/12/19 03/12/19 22:52 12:04 18:25 WBC RBC Hgb Hct MCV MCH MCHC RDW Lymph % (Auto) [place] % (Auto) Eos % (Auto) Lymph # [place] # Eos # Seg Neutrophils % Seg Neuts % (Manual) Lymphocytes % (Manual) Eosinophils % (Manual) Seg Neutrophils # Lymphocytes # (Manual) Eosinophils # (Manual) PT INR D-Dimer POC ABG pH POC ABG pCO2 POC ABG pO2 ABG pO2 ABG HCO3 ABG Base Excess ABG Hemoglobin Oxyhemoglobin Sodium Potassium Chloride Carbon Dioxide BUN Creatinine Glucose POC Glucose 110 H 106 H 118 H Calcium Phosphorus Magnesium ALT Alkaline Phosphatase Total Creatine Kinase CK-MB (CK-2) Rel Index Troponin T Albumin LDL Cholesterol Direct PTH Intact Salicylates Acetaminophen Crossmatch 03/12/19 03/13/19 03/13/19 23:36 04:38 04:38 WBC RBC 2.95 L Hgb 7.9 L Hct 24.9 L MCV MCH 27 L MCHC RDW 19.9 H Lymph % (Auto) 11.1 L [place] % (Auto) 8.1 H Eos % (Auto) 4.4 H Lymph # 0.9 L [place] # Eos # Seg Neutrophils % 75.4 H Seg Neuts % (Manual) Lymphocytes % (Manual) Eosinophils % (Manual) Seg Neutrophils # Lymphocytes # (Manual) Eosinophils # (Manual) PT INR D-Dimer POC ABG pH POC ABG pCO2 POC ABG pO2 ABG pO2 ABG HCO3 ABG Base Excess ABG Hemoglobin Oxyhemoglobin Sodium 136 L Potassium 5.1 H Chloride 93.8 L Carbon Dioxide BUN 48 H Creatinine 2.7 H Glucose 102 H POC Glucose 115 H Calcium Phosphorus Magnesium ALT < 5 L Alkaline Phosphatase 143 H Total Creatine Kinase CK-MB (CK-2) Rel Index Troponin T Albumin 2.5 L LDL Cholesterol Direct PTH Intact Salicylates Acetaminophen Crossmatch 03/13/19 03/13/19 03/13/19 05:33 13:37 18:03 WBC RBC Hgb Hct MCV MCH MCHC RDW Lymph % (Auto) [place] % (Auto) Eos % (Auto) Lymph # [place] # Eos # Seg Neutrophils % Seg Neuts % (Manual) Lymphocytes % (Manual) Eosinophils % (Manual) Seg Neutrophils # Lymphocytes # (Manual) Eosinophils # (Manual) PT INR D-Dimer POC ABG pH POC ABG pCO2 POC ABG pO2 ABG pO2 ABG HCO3 ABG Base Excess ABG Hemoglobin Oxyhemoglobin Sodium Potassium Chloride Carbon Dioxide BUN Creatinine Glucose POC Glucose 140 H 150 H 158 H Calcium Phosphorus Magnesium ALT Alkaline Phosphatase Total Creatine Kinase CK-MB (CK-2) Rel Index Troponin T Albumin LDL Cholesterol Direct PTH Intact Salicylates Acetaminophen Crossmatch 03/13/19 03/14/19 03/14/19 23:32 05:24 12:20 WBC RBC Hgb Hct MCV MCH MCHC RDW Lymph % (Auto) [place] % (Auto) Eos % (Auto) Lymph # [place] # Eos # Seg Neutrophils % Seg Neuts % (Manual) Lymphocytes % (Manual) Eosinophils % (Manual) Seg Neutrophils # Lymphocytes # (Manual) Eosinophils # (Manual) PT INR D-Dimer POC ABG pH POC ABG pCO2 POC ABG pO2 ABG pO2 ABG HCO3 ABG Base Excess ABG Hemoglobin Oxyhemoglobin Sodium Potassium Chloride Carbon Dioxide BUN Creatinine Glucose POC Glucose 162 H 146 H 127 H Calcium Phosphorus Magnesium ALT Alkaline Phosphatase Total Creatine Kinase CK-MB (CK-2) Rel Index Troponin T Albumin LDL Cholesterol Direct PTH Intact Salicylates Acetaminophen Crossmatch 03/14/19 03/14/19 03/15/19 18:05 23:57 04:38 WBC 12.8 H RBC 3.11 L Hgb 8.1 L Hct 26.5 L MCV MCH 26 L MCHC 31 L RDW 19.7 H Lymph % (Auto) 4.4 L [place] % (Auto) 7.4 H Eos % (Auto) Lymph # 0.6 L [place] # 0.9 H Eos # Seg Neutrophils % 87.3 H Seg Neuts % (Manual) Lymphocytes % (Manual) Eosinophils % (Manual) Seg Neutrophils # 11.2 H Lymphocytes # (Manual) Eosinophils # (Manual) PT INR D-Dimer POC ABG pH POC ABG pCO2 POC ABG pO2 ABG pO2 ABG HCO3 ABG Base Excess ABG Hemoglobin Oxyhemoglobin Sodium Potassium Chloride Carbon Dioxide BUN Creatinine Glucose POC Glucose 142 H 155 H Calcium Phosphorus Magnesium ALT Alkaline Phosphatase Total Creatine Kinase CK-MB (CK-2) Rel Index Troponin T Albumin LDL Cholesterol Direct PTH Intact Salicylates Acetaminophen Crossmatch 03/15/19 03/15/19 03/15/19 04:38 05:31 11:32 WBC RBC Hgb Hct MCV MCH MCHC RDW Lymph % (Auto) [place] % (Auto) Eos % (Auto) Lymph # [place] # Eos # Seg Neutrophils % Seg Neuts % (Manual) Lymphocytes % (Manual) Eosinophils % (Manual) Seg Neutrophils # Lymphocytes # (Manual) Eosinophils # (Manual) PT INR D-Dimer POC ABG pH POC ABG pCO2 POC ABG pO2 ABG pO2 ABG HCO3 ABG Base Excess ABG Hemoglobin Oxyhemoglobin Sodium 135 L Potassium Chloride 91.9 L Carbon Dioxide BUN 54 H Creatinine 2.8 H Glucose 128 H POC Glucose 160 H 109 H Calcium 11.1 H Phosphorus Magnesium ALT Alkaline Phosphatase 161 H Total Creatine Kinase CK-MB (CK-2) Rel Index Troponin T Albumin 2.3 L LDL Cholesterol Direct PTH Intact Salicylates Acetaminophen Crossmatch 03/15/19 03/15/19 03/16/19 18:15 23:41 05:40 WBC RBC Hgb Hct MCV MCH MCHC RDW Lymph % (Auto) [place] % (Auto) Eos % (Auto) Lymph # [place] # Eos # Seg Neutrophils % Seg Neuts % (Manual) Lymphocytes % (Manual) Eosinophils % (Manual) Seg Neutrophils # Lymphocytes # (Manual) Eosinophils # (Manual) PT INR D-Dimer POC ABG pH POC ABG pCO2 POC ABG pO2 ABG pO2 ABG HCO3 ABG Base Excess ABG Hemoglobin Oxyhemoglobin Sodium Potassium Chloride Carbon Dioxide BUN Creatinine Glucose POC Glucose 151 H 110 H 163 H Calcium Phosphorus Magnesium ALT Alkaline Phosphatase Total Creatine Kinase CK-MB (CK-2) Rel Index Troponin T Albumin LDL Cholesterol Direct PTH Intact Salicylates Acetaminophen Crossmatch 03/16/19 03/16/19 03/16/19 11:55 17:04 23:58 WBC RBC Hgb Hct MCV MCH MCHC RDW Lymph % (Auto) [place] % (Auto) Eos % (Auto) Lymph # [place] # Eos # Seg Neutrophils % Seg Neuts % (Manual) Lymphocytes % (Manual) Eosinophils % (Manual) Seg Neutrophils # Lymphocytes # (Manual) Eosinophils # (Manual) PT INR D-Dimer POC ABG pH POC ABG pCO2 POC ABG pO2 ABG pO2 ABG HCO3 ABG Base Excess ABG Hemoglobin Oxyhemoglobin Sodium Potassium Chloride Carbon Dioxide BUN Creatinine Glucose POC Glucose 114 H 147 H 192 H Calcium Phosphorus Magnesium ALT Alkaline Phosphatase Total Creatine Kinase CK-MB (CK-2) Rel Index Troponin T Albumin LDL Cholesterol Direct PTH Intact Salicylates Acetaminophen Crossmatch 03/17/19 03/17/19 03/17/19 05:53 11:17 17:01 WBC RBC Hgb Hct MCV MCH MCHC RDW Lymph % (Auto) [place] % (Auto) Eos % (Auto) Lymph # [place] # Eos # Seg Neutrophils % Seg Neuts % (Manual) Lymphocytes % (Manual) Eosinophils % (Manual) Seg Neutrophils # Lymphocytes # (Manual) Eosinophils # (Manual) PT INR D-Dimer POC ABG pH POC ABG pCO2 POC ABG pO2 ABG pO2 ABG HCO3 ABG Base Excess ABG Hemoglobin Oxyhemoglobin Sodium Potassium Chloride Carbon Dioxide BUN Creatinine Glucose POC Glucose 151 H 161 H 152 H Calcium Phosphorus Magnesium ALT Alkaline Phosphatase Total Creatine Kinase CK-MB (CK-2) Rel Index Troponin T Albumin LDL Cholesterol Direct PTH Intact Salicylates Acetaminophen Crossmatch 03/17/19 03/18/19 03/18/19 21:47 04:15 04:44 WBC RBC Hgb Hct MCV MCH MCHC RDW Lymph % (Auto) [place] % (Auto) Eos % (Auto) Lymph # [place] # Eos # Seg Neutrophils % Seg Neuts % (Manual) Lymphocytes % (Manual) Eosinophils % (Manual) Seg Neutrophils # Lymphocytes # (Manual) Eosinophils # (Manual) PT INR D-Dimer POC ABG pH POC ABG pCO2 POC ABG pO2 ABG pO2 102.8 H ABG HCO3 28.3 H ABG Base Excess ABG Hemoglobin 10.4 L Oxyhemoglobin 94.5 L Sodium Potassium Chloride Carbon Dioxide BUN Creatinine Glucose POC Glucose 170 H 150 H Calcium Phosphorus Magnesium ALT Alkaline Phosphatase Total Creatine Kinase CK-MB (CK-2) Rel Index Troponin T Albumin LDL Cholesterol Direct PTH Intact Salicylates Acetaminophen Crossmatch 03/18/19 03/18/19 03/18/19 06:38 12:12 17:47 WBC RBC Hgb Hct MCV MCH MCHC RDW Lymph % (Auto) [place] % (Auto) Eos % (Auto) Lymph # [place] # Eos # Seg Neutrophils % Seg Neuts % (Manual) Lymphocytes % (Manual) Eosinophils % (Manual) Seg Neutrophils # Lymphocytes # (Manual) Eosinophils # (Manual) PT INR D-Dimer POC ABG pH 7.510 H POC ABG pCO2 POC ABG pO2 164 H ABG pO2 ABG HCO3 ABG Base Excess ABG Hemoglobin Oxyhemoglobin Sodium Potassium Chloride Carbon Dioxide BUN Creatinine Glucose POC Glucose 145 H 149 H Calcium Phosphorus Magnesium ALT Alkaline Phosphatase Total Creatine Kinase CK-MB (CK-2) Rel Index Troponin T Albumin LDL Cholesterol Direct PTH Intact Salicylates Acetaminophen Crossmatch 03/18/19 03/19/19 03/19/19 23:25 01:11 04:23 WBC 15.6 H RBC 2.51 L Hgb 6.5 L Hct 21.6 L MCV MCH 26 L MCHC 30 L RDW 19.8 H Lymph % (Auto) 6.0 L [place] % (Auto) Eos % (Auto) Lymph # 0.9 L [place] # 1.0 H Eos # Seg Neutrophils % 85.5 H Seg Neuts % (Manual) Lymphocytes % (Manual) Eosinophils % (Manual) Seg Neutrophils # 13.4 H Lymphocytes # (Manual) Eosinophils # (Manual) PT INR D-Dimer POC ABG pH POC ABG pCO2 POC ABG pO2 ABG pO2 78.3 L ABG HCO3 30.7 H ABG Base Excess 5.8 H ABG Hemoglobin 5.8 L Oxyhemoglobin 94.6 L Sodium Potassium Chloride Carbon Dioxide BUN Creatinine Glucose POC Glucose 190 H Calcium Phosphorus Magnesium ALT Alkaline Phosphatase Total Creatine Kinase CK-MB (CK-2) Rel Index Troponin T Albumin LDL Cholesterol Direct PTH Intact Salicylates Acetaminophen Crossmatch 03/19/19 03/19/19 03/19/19 05:22 05:35 08:54 WBC RBC Hgb Hct MCV MCH MCHC RDW Lymph % (Auto) [place] % (Auto) Eos % (Auto) Lymph # [place] # Eos # Seg Neutrophils % Seg Neuts % (Manual) Lymphocytes % (Manual) Eosinophils % (Manual) Seg Neutrophils # Lymphocytes # (Manual) Eosinophils # (Manual) PT INR D-Dimer POC ABG pH POC ABG pCO2 POC ABG pO2 ABG pO2 ABG HCO3 ABG Base Excess ABG Hemoglobin Oxyhemoglobin Sodium Potassium Chloride Carbon Dioxide BUN Creatinine Glucose POC Glucose 167 H Calcium Phosphorus Magnesium ALT Alkaline Phosphatase Total Creatine Kinase CK-MB (CK-2) Rel Index Troponin T Albumin LDL Cholesterol Direct PTH Intact Salicylates Acetaminophen Crossmatch See Detail See Detail 03/19/19 03/19/19 03/19/19 12:36 17:02 23:25 WBC RBC Hgb Hct MCV MCH MCHC RDW Lymph % (Auto) [place] % (Auto) Eos % (Auto) Lymph # [place] # Eos # Seg Neutrophils % Seg Neuts % (Manual) Lymphocytes % (Manual) Eosinophils % (Manual) Seg Neutrophils # Lymphocytes # (Manual) Eosinophils # (Manual) PT INR D-Dimer POC ABG pH POC ABG pCO2 POC ABG pO2 ABG pO2 ABG HCO3 ABG Base Excess ABG Hemoglobin Oxyhemoglobin Sodium Potassium Chloride Carbon Dioxide BUN Creatinine Glucose POC Glucose 167 H 135 H 136 H Calcium Phosphorus Magnesium ALT Alkaline Phosphatase Total Creatine Kinase CK-MB (CK-2) Rel Index Troponin T Albumin LDL Cholesterol Direct PTH Intact Salicylates Acetaminophen Crossmatch 03/20/19 03/20/19 03/20/19 05:38 08:40 08:40 WBC RBC 2.61 L Hgb 7.1 L Hct 22.0 L MCV MCH 27 L MCHC RDW 19.6 H Lymph % (Auto) 8.2 L [place] % (Auto) 8.3 H Eos % (Auto) 5.7 H Lymph # 0.8 L [place] # Eos # 0.5 H Seg Neutrophils % 77.3 H Seg Neuts % (Manual) Lymphocytes % (Manual) Eosinophils % (Manual) Seg Neutrophils # Lymphocytes # (Manual) Eosinophils # (Manual) PT INR D-Dimer POC ABG pH POC ABG pCO2 POC ABG pO2 ABG pO2 ABG HCO3 ABG Base Excess ABG Hemoglobin Oxyhemoglobin Sodium Potassium Chloride 95.9 L Carbon Dioxide BUN 69 H Creatinine 2.8 H Glucose 115 H POC Glucose 134 H Calcium 10.5 H Phosphorus Magnesium ALT Alkaline Phosphatase Total Creatine Kinase CK-MB (CK-2) Rel Index Troponin T Albumin LDL Cholesterol Direct PTH Intact Salicylates Acetaminophen Crossmatch 03/20/19 03/20/19 03/20/19 12:13 18:04 23:49 WBC RBC Hgb Hct MCV MCH MCHC RDW Lymph % (Auto) [place] % (Auto) Eos % (Auto) Lymph # [place] # Eos # Seg Neutrophils % Seg Neuts % (Manual) Lymphocytes % (Manual) Eosinophils % (Manual) Seg Neutrophils # Lymphocytes # (Manual) Eosinophils # (Manual) PT INR D-Dimer POC ABG pH POC ABG pCO2 POC ABG pO2 ABG pO2 ABG HCO3 ABG Base Excess ABG Hemoglobin Oxyhemoglobin Sodium Potassium Chloride Carbon Dioxide BUN Creatinine Glucose POC Glucose 144 H 165 H 172 H Calcium Phosphorus Magnesium ALT Alkaline Phosphatase Total Creatine Kinase CK-MB (CK-2) Rel Index Troponin T Albumin LDL Cholesterol Direct PTH Intact Salicylates Acetaminophen Crossmatch 03/21/19 03/21/19 03/21/19 05:00 06:29 06:30 WBC RBC 2.72 L Hgb 7.4 L Hct 22.9 L MCV MCH 27 L MCHC RDW 19.4 H Lymph % (Auto) [place] % (Auto) Eos % (Auto) Lymph # [place] # Eos # Seg Neutrophils % Seg Neuts % (Manual) 81.0 H Lymphocytes % (Manual) 8.0 L Eosinophils % (Manual) 8.0 H Seg Neutrophils # Lymphocytes # (Manual) 0.7 L Eosinophils # (Manual) 0.7 H PT INR D-Dimer POC ABG pH POC ABG pCO2 POC ABG pO2 ABG pO2 ABG HCO3 ABG Base Excess ABG Hemoglobin Oxyhemoglobin Sodium Potassium Chloride Carbon Dioxide 33 H BUN 43 H Creatinine 1.7 H Glucose 145 H POC Glucose 156 H Calcium Phosphorus Magnesium ALT Alkaline Phosphatase 212 H Total Creatine Kinase CK-MB (CK-2) Rel Index Troponin T Albumin 2.2 L LDL Cholesterol Direct PTH Intact Salicylates Acetaminophen Crossmatch 03/21/19 03/21/19 03/22/19 12:02 18:07 00:21 WBC RBC Hgb Hct MCV MCH MCHC RDW Lymph % (Auto) [place] % (Auto) Eos % (Auto) Lymph # [place] # Eos # Seg Neutrophils % Seg Neuts % (Manual) Lymphocytes % (Manual) Eosinophils % (Manual) Seg Neutrophils # Lymphocytes # (Manual) Eosinophils # (Manual) PT INR D-Dimer POC ABG pH POC ABG pCO2 POC ABG pO2 ABG pO2 ABG HCO3 ABG Base Excess ABG Hemoglobin Oxyhemoglobin Sodium Potassium Chloride Carbon Dioxide BUN Creatinine Glucose POC Glucose 163 H 144 H 153 H Calcium Phosphorus Magnesium ALT Alkaline Phosphatase Total Creatine Kinase CK-MB (CK-2) Rel Index Troponin T Albumin LDL Cholesterol Direct PTH Intact Salicylates Acetaminophen Crossmatch 03/22/19 03/22/19 03/22/19 05:23 05:23 05:31 WBC RBC 2.58 L Hgb 7.1 L Hct 21.8 L MCV MCH 27 L MCHC RDW 19.2 H Lymph % (Auto) [place] % (Auto) Eos % (Auto) Lymph # [place] # Eos # Seg Neutrophils % Seg Neuts % (Manual) Lymphocytes % (Manual) Eosinophils % (Manual) Seg Neutrophils # Lymphocytes # (Manual) Eosinophils # (Manual) PT INR D-Dimer POC ABG pH POC ABG pCO2 POC ABG pO2 ABG pO2 ABG HCO3 ABG Base Excess ABG Hemoglobin Oxyhemoglobin Sodium 147 H Potassium Chloride Carbon Dioxide BUN 68 H Creatinine 2.5 H Glucose POC Glucose 116 H Calcium 10.3 H Phosphorus Magnesium ALT Alkaline Phosphatase Total Creatine Kinase CK-MB (CK-2) Rel Index Troponin T Albumin LDL Cholesterol Direct PTH Intact Salicylates Acetaminophen Crossmatch 03/22/19 03/22/19 03/22/19 08:48 12:37 17:35 WBC RBC Hgb Hct MCV MCH MCHC RDW Lymph % (Auto) [place] % (Auto) Eos % (Auto) Lymph # [place] # Eos # Seg Neutrophils % Seg Neuts % (Manual) Lymphocytes % (Manual) Eosinophils % (Manual) Seg Neutrophils # Lymphocytes # (Manual) Eosinophils # (Manual) PT INR D-Dimer POC ABG pH POC ABG pCO2 POC ABG pO2 ABG pO2 ABG HCO3 ABG Base Excess ABG Hemoglobin Oxyhemoglobin Sodium Potassium Chloride Carbon Dioxide BUN Creatinine Glucose POC Glucose 143 H 155 H Calcium Phosphorus Magnesium ALT Alkaline Phosphatase Total Creatine Kinase CK-MB (CK-2) Rel Index Troponin T Albumin LDL Cholesterol Direct PTH Intact Salicylates Acetaminophen Crossmatch See Detail 03/23/19 03/23/19 03/23/19 00:07 04:00 04:00 WBC 11.2 H RBC 2.32 L Hgb 6.4 L Hct 19.7 L* MCV MCH MCHC RDW 19.4 H Lymph % (Auto) [place] % (Auto) Eos % (Auto) Lymph # [place] # Eos # Seg Neutrophils % Seg Neuts % (Manual) Lymphocytes % (Manual) Eosinophils % (Manual) Seg Neutrophils # Lymphocytes # (Manual) Eosinophils # (Manual) PT INR D-Dimer POC ABG pH POC ABG pCO2 POC ABG pO2 ABG pO2 ABG HCO3 ABG Base Excess ABG Hemoglobin Oxyhemoglobin Sodium 147 H Potassium 5.2 H Chloride Carbon Dioxide BUN 86 H Creatinine 3.2 H Glucose 128 H POC Glucose 135 H Calcium 10.3 H Phosphorus Magnesium ALT Alkaline Phosphatase Total Creatine Kinase CK-MB (CK-2) Rel Index Troponin T Albumin LDL Cholesterol Direct PTH Intact Salicylates Acetaminophen Crossmatch 03/23/19 03/23/19 03/23/19 05:21 11:36 11:36 WBC RBC Hgb 7.9 L Hct 25.0 L MCV MCH MCHC RDW Lymph % (Auto) [place] % (Auto) Eos % (Auto) Lymph # [place] # Eos # Seg Neutrophils % Seg Neuts % (Manual) Lymphocytes % (Manual) Eosinophils % (Manual) Seg Neutrophils # Lymphocytes # (Manual) Eosinophils # (Manual) PT INR D-Dimer POC ABG pH POC ABG pCO2 POC ABG pO2 ABG pO2 ABG HCO3 ABG Base Excess ABG Hemoglobin Oxyhemoglobin Sodium Potassium Chloride Carbon Dioxide BUN Creatinine Glucose POC Glucose 132 H 147 H Calcium Phosphorus Magnesium ALT Alkaline Phosphatase Total Creatine Kinase CK-MB (CK-2) Rel Index Troponin T Albumin LDL Cholesterol Direct PTH Intact Salicylates Acetaminophen Crossmatch 03/23/19 03/24/19 03/24/19 17:31 01:22 04:20 WBC 12.2 H RBC 3.05 L Hgb 8.3 L Hct 25.9 L MCV MCH 27 L MCHC RDW 18.7 H Lymph % (Auto) [place] % (Auto) Eos % (Auto) Lymph # [place] # Eos # Seg Neutrophils % Seg Neuts % (Manual) Lymphocytes % (Manual) Eosinophils % (Manual) Seg Neutrophils # Lymphocytes # (Manual) Eosinophils # (Manual) PT INR D-Dimer POC ABG pH POC ABG pCO2 POC ABG pO2 ABG pO2 ABG HCO3 ABG Base Excess ABG Hemoglobin Oxyhemoglobin Sodium Potassium Chloride Carbon Dioxide BUN Creatinine Glucose POC Glucose 182 H 113 H Calcium Phosphorus Magnesium ALT Alkaline Phosphatase Total Creatine Kinase CK-MB (CK-2) Rel Index Troponin T Albumin LDL Cholesterol Direct PTH Intact Salicylates Acetaminophen Crossmatch 03/24/19 03/24/19 03/24/19 04:20 11:59 18:14 WBC RBC Hgb Hct MCV MCH MCHC RDW Lymph % (Auto) [place] % (Auto) Eos % (Auto) Lymph # [place] # Eos # Seg Neutrophils % Seg Neuts % (Manual) Lymphocytes % (Manual) Eosinophils % (Manual) Seg Neutrophils # Lymphocytes # (Manual) Eosinophils # (Manual) PT INR D-Dimer POC ABG pH POC ABG pCO2 POC ABG pO2 ABG pO2 ABG HCO3 ABG Base Excess ABG Hemoglobin Oxyhemoglobin Sodium Potassium Chloride 94.8 L Carbon Dioxide 32 H BUN 53 H Creatinine 2.3 H Glucose POC Glucose 163 H 134 H Calcium Phosphorus Magnesium ALT Alkaline Phosphatase Total Creatine Kinase CK-MB (CK-2) Rel Index Troponin T Albumin LDL Cholesterol Direct PTH Intact Salicylates Acetaminophen Crossmatch 03/24/19 03/25/19 03/25/19 23:15 05:52 12:02 WBC RBC Hgb Hct MCV MCH MCHC RDW Lymph % (Auto) [place] % (Auto) Eos % (Auto) Lymph # [place] # Eos # Seg Neutrophils % Seg Neuts % (Manual) Lymphocytes % (Manual) Eosinophils % (Manual) Seg Neutrophils # Lymphocytes # (Manual) Eosinophils # (Manual) PT INR D-Dimer POC ABG pH POC ABG pCO2 POC ABG pO2 ABG pO2 ABG HCO3 ABG Base Excess ABG Hemoglobin Oxyhemoglobin Sodium Potassium Chloride Carbon Dioxide BUN Creatinine Glucose POC Glucose 129 H 123 H 125 H Calcium Phosphorus Magnesium ALT Alkaline Phosphatase Total Creatine Kinase CK-MB (CK-2) Rel Index Troponin T Albumin LDL Cholesterol Direct PTH Intact Salicylates Acetaminophen Crossmatch 03/25/19 03/26/19 03/26/19 17:27 00:30 05:35 WBC RBC 3.01 L Hgb 8.1 L Hct 25.7 L MCV MCH 27 L MCHC RDW 19.2 H Lymph % (Auto) 11.4 L [place] % (Auto) Eos % (Auto) 8.0 H Lymph # 1.0 L [place] # Eos # 0.7 H Seg Neutrophils % 73.9 H Seg Neuts % (Manual) Lymphocytes % (Manual) Eosinophils % (Manual) Seg Neutrophils # Lymphocytes # (Manual) Eosinophils # (Manual) PT INR D-Dimer POC ABG pH POC ABG pCO2 POC ABG pO2 ABG pO2 ABG HCO3 ABG Base Excess ABG Hemoglobin Oxyhemoglobin Sodium Potassium Chloride Carbon Dioxide BUN Creatinine Glucose POC Glucose 130 H 129 H Calcium Phosphorus Magnesium ALT Alkaline Phosphatase Total Creatine Kinase CK-MB (CK-2) Rel Index Troponin T Albumin LDL Cholesterol Direct PTH Intact Salicylates Acetaminophen Crossmatch 03/26/19 03/26/19 03/26/19 05:35 05:45 12:16 WBC RBC Hgb Hct MCV MCH MCHC RDW Lymph % (Auto) [place] % (Auto) Eos % (Auto) Lymph # [place] # Eos # Seg Neutrophils % Seg Neuts % (Manual) Lymphocytes % (Manual) Eosinophils % (Manual) Seg Neutrophils # Lymphocytes # (Manual) Eosinophils # (Manual) PT INR D-Dimer POC ABG pH POC ABG pCO2 POC ABG pO2 ABG pO2 ABG HCO3 ABG Base Excess ABG Hemoglobin Oxyhemoglobin Sodium Potassium Chloride 94.9 L Carbon Dioxide 31 H BUN 44 H Creatinine 2.0 H Glucose POC Glucose 118 H 107 H Calcium Phosphorus Magnesium ALT Alkaline Phosphatase Total Creatine Kinase CK-MB (CK-2) Rel Index Troponin T Albumin LDL Cholesterol Direct PTH Intact Salicylates Acetaminophen Crossmatch 03/26/19 03/27/19 03/27/19 17:56 00:36 05:37 WBC RBC Hgb Hct MCV MCH MCHC RDW Lymph % (Auto) [place] % (Auto) Eos % (Auto) Lymph # [place] # Eos # Seg Neutrophils % Seg Neuts % (Manual) Lymphocytes % (Manual) Eosinophils % (Manual) Seg Neutrophils # Lymphocytes # (Manual) Eosinophils # (Manual) PT INR D-Dimer POC ABG pH POC ABG pCO2 POC ABG pO2 ABG pO2 ABG HCO3 ABG Base Excess ABG Hemoglobin Oxyhemoglobin Sodium Potassium Chloride Carbon Dioxide BUN Creatinine Glucose POC Glucose 107 H 110 H 122 H Calcium Phosphorus Magnesium ALT Alkaline Phosphatase Total Creatine Kinase CK-MB (CK-2) Rel Index Troponin T Albumin LDL Cholesterol Direct PTH Intact Salicylates Acetaminophen Crossmatch 03/27/19 03/27/19 03/28/19 11:22 18:00 05:17 WBC RBC Hgb Hct MCV MCH MCHC RDW Lymph % (Auto) [place] % (Auto) Eos % (Auto) Lymph # [place] # Eos # Seg Neutrophils % Seg Neuts % (Manual) Lymphocytes % (Manual) Eosinophils % (Manual) Seg Neutrophils # Lymphocytes # (Manual) Eosinophils # (Manual) PT INR D-Dimer POC ABG pH POC ABG pCO2 POC ABG pO2 ABG pO2 ABG HCO3 ABG Base Excess ABG Hemoglobin Oxyhemoglobin Sodium Potassium Chloride Carbon Dioxide BUN Creatinine Glucose POC Glucose 120 H 111 H 107 H Calcium Phosphorus Magnesium ALT Alkaline Phosphatase Total Creatine Kinase CK-MB (CK-2) Rel Index Troponin T Albumin LDL Cholesterol Direct PTH Intact Salicylates Acetaminophen Crossmatch 03/28/19 03/28/19 03/29/19 12:27 18:08 05:47 WBC RBC Hgb Hct MCV MCH MCHC RDW Lymph % (Auto) [place] % (Auto) Eos % (Auto) Lymph # [place] # Eos # Seg Neutrophils % Seg Neuts % (Manual) Lymphocytes % (Manual) Eosinophils % (Manual) Seg Neutrophils # Lymphocytes # (Manual) Eosinophils # (Manual) PT INR D-Dimer POC ABG pH POC ABG pCO2 POC ABG pO2 ABG pO2 ABG HCO3 ABG Base Excess ABG Hemoglobin Oxyhemoglobin Sodium Potassium Chloride Carbon Dioxide BUN Creatinine Glucose POC Glucose 114 H 121 H 112 H Calcium Phosphorus Magnesium ALT Alkaline Phosphatase Total Creatine Kinase CK-MB (CK-2) Rel Index Troponin T Albumin LDL Cholesterol Direct PTH Intact Salicylates Acetaminophen Crossmatch 03/29/19 03/29/19 03/30/19 12:14 18:08 00:31 WBC RBC Hgb Hct MCV MCH MCHC RDW Lymph % (Auto) [place] % (Auto) Eos % (Auto) Lymph # [place] # Eos # Seg Neutrophils % Seg Neuts % (Manual) Lymphocytes % (Manual) Eosinophils % (Manual) Seg Neutrophils # Lymphocytes # (Manual) Eosinophils # (Manual) PT INR D-Dimer POC ABG pH POC ABG pCO2 POC ABG pO2 ABG pO2 ABG HCO3 ABG Base Excess ABG Hemoglobin Oxyhemoglobin Sodium Potassium Chloride Carbon Dioxide BUN Creatinine Glucose POC Glucose 117 H 140 H 114 H Calcium Phosphorus Magnesium ALT Alkaline Phosphatase Total Creatine Kinase CK-MB (CK-2) Rel Index Troponin T Albumin LDL Cholesterol Direct PTH Intact Salicylates Acetaminophen Crossmatch 03/30/19 03/30/19 03/30/19 10:13 10:13 23:53 WBC RBC 2.81 L Hgb 7.7 L Hct 24.3 L MCV MCH 27 L MCHC RDW 19.0 H Lymph % (Auto) 12.2 L [place] % (Auto) Eos % (Auto) 7.9 H Lymph # 1.0 L [place] # Eos # 0.6 H Seg Neutrophils % 72.3 H Seg Neuts % (Manual) Lymphocytes % (Manual) Eosinophils % (Manual) Seg Neutrophils # Lymphocytes # (Manual) Eosinophils # (Manual) PT INR D-Dimer POC ABG pH POC ABG pCO2 POC ABG pO2 ABG pO2 ABG HCO3 ABG Base Excess ABG Hemoglobin Oxyhemoglobin Sodium Potassium 5.1 H Chloride 96.5 L Carbon Dioxide BUN 73 H Creatinine 3.9 H D Glucose POC Glucose 114 H Calcium 10.3 H Phosphorus 6.30 H Magnesium 2.70 H ALT Alkaline Phosphatase 185 H Total Creatine Kinase CK-MB (CK-2) Rel Index Troponin T Albumin 2.6 L LDL Cholesterol Direct PTH Intact Salicylates Acetaminophen Crossmatch 03/31/19 03/31/19 03/31/19 05:45 10:26 10:26 WBC RBC 3.01 L Hgb 8.2 L Hct 26.4 L MCV MCH 27 L MCHC 31 L RDW 20.3 H Lymph % (Auto) 13.3 L [place] % (Auto) Eos % (Auto) 7.2 H Lymph # 1.1 L [place] # Eos # 0.6 H Seg Neutrophils % 72.1 H Seg Neuts % (Manual) Lymphocytes % (Manual) Eosinophils % (Manual) Seg Neutrophils # Lymphocytes # (Manual) Eosinophils # (Manual) PT INR D-Dimer POC ABG pH POC ABG pCO2 POC ABG pO2 ABG pO2 ABG HCO3 ABG Base Excess ABG Hemoglobin Oxyhemoglobin Sodium Potassium Chloride 96.9 L Carbon Dioxide 33 H BUN 37 H Creatinine 2.4 H Glucose POC Glucose 108 H Calcium 10.3 H Phosphorus Magnesium ALT Alkaline Phosphatase Total Creatine Kinase CK-MB (CK-2) Rel Index Troponin T Albumin LDL Cholesterol Direct PTH Intact Salicylates Acetaminophen Crossmatch 03/31/19 04/01/19 04/01/19 12:38 05:48 12:06 WBC RBC Hgb Hct MCV MCH MCHC RDW Lymph % (Auto) [place] % (Auto) Eos % (Auto) Lymph # [place] # Eos # Seg Neutrophils % Seg Neuts % (Manual) Lymphocytes % (Manual) Eosinophils % (Manual) Seg Neutrophils # Lymphocytes # (Manual) Eosinophils # (Manual) PT INR D-Dimer POC ABG pH POC ABG pCO2 POC ABG pO2 ABG pO2 ABG HCO3 ABG Base Excess ABG Hemoglobin Oxyhemoglobin Sodium Potassium Chloride Carbon Dioxide BUN Creatinine Glucose POC Glucose 108 H 114 H 111 H Calcium Phosphorus Magnesium ALT Alkaline Phosphatase Total Creatine Kinase CK-MB (CK-2) Rel Index Troponin T Albumin LDL Cholesterol Direct PTH Intact Salicylates Acetaminophen Crossmatch 04/01/19 04/02/19 04/04/19 18:24 00:36 23:55 WBC RBC Hgb Hct MCV MCH MCHC RDW Lymph % (Auto) [place] % (Auto) Eos % (Auto) Lymph # [place] # Eos # Seg Neutrophils % Seg Neuts % (Manual) Lymphocytes % (Manual) Eosinophils % (Manual) Seg Neutrophils # Lymphocytes # (Manual) Eosinophils # (Manual) PT INR D-Dimer POC ABG pH POC ABG pCO2 POC ABG pO2 ABG pO2 ABG HCO3 ABG Base Excess ABG Hemoglobin Oxyhemoglobin Sodium Potassium Chloride Carbon Dioxide BUN Creatinine Glucose POC Glucose 113 H 117 H 109 H Calcium Phosphorus Magnesium ALT Alkaline Phosphatase Total Creatine Kinase CK-MB (CK-2) Rel Index Troponin T Albumin LDL Cholesterol Direct PTH Intact Salicylates Acetaminophen Crossmatch 04/06/19 04/06/19 04/06/19 00:11 06:02 23:30 WBC RBC Hgb Hct MCV MCH MCHC RDW Lymph % (Auto) [place] % (Auto) Eos % (Auto) Lymph # [place] # Eos # Seg Neutrophils % Seg Neuts % (Manual) Lymphocytes % (Manual) Eosinophils % (Manual) Seg Neutrophils # Lymphocytes # (Manual) Eosinophils # (Manual) PT INR D-Dimer POC ABG pH POC ABG pCO2 POC ABG pO2 ABG pO2 ABG HCO3 ABG Base Excess ABG Hemoglobin Oxyhemoglobin Sodium Potassium Chloride Carbon Dioxide BUN Creatinine Glucose POC Glucose 116 H 112 H 112 H Calcium Phosphorus Magnesium ALT Alkaline Phosphatase Total Creatine Kinase CK-MB (CK-2) Rel Index Troponin T Albumin LDL Cholesterol Direct PTH Intact Salicylates Acetaminophen Crossmatch 04/08/19 04/08/19 04/08/19 02:23 06:19 13:01 WBC RBC Hgb Hct MCV MCH MCHC RDW Lymph % (Auto) [place] % (Auto) Eos % (Auto) Lymph # [place] # Eos # Seg Neutrophils % Seg Neuts % (Manual) Lymphocytes % (Manual) Eosinophils % (Manual) Seg Neutrophils # Lymphocytes # (Manual) Eosinophils # (Manual) PT INR D-Dimer POC ABG pH POC ABG pCO2 POC ABG pO2 ABG pO2 ABG HCO3 ABG Base Excess ABG Hemoglobin Oxyhemoglobin Sodium Potassium Chloride Carbon Dioxide BUN Creatinine Glucose POC Glucose 144 H 126 H 118 H Calcium Phosphorus Magnesium ALT Alkaline Phosphatase Total Creatine Kinase CK-MB (CK-2) Rel Index Troponin T Albumin LDL Cholesterol Direct PTH Intact Salicylates Acetaminophen Crossmatch 04/08/19 04/09/19 04/10/19 23:28 05:52 06:34 WBC RBC Hgb Hct MCV MCH MCHC RDW Lymph % (Auto) [place] % (Auto) Eos % (Auto) Lymph # [place] # Eos # Seg Neutrophils % Seg Neuts % (Manual) Lymphocytes % (Manual) Eosinophils % (Manual) Seg Neutrophils # Lymphocytes # (Manual) Eosinophils # (Manual) PT INR D-Dimer POC ABG pH POC ABG pCO2 POC ABG pO2 ABG pO2 ABG HCO3 ABG Base Excess ABG Hemoglobin Oxyhemoglobin Sodium Potassium Chloride Carbon Dioxide BUN Creatinine Glucose POC Glucose 119 H 116 H 114 H Calcium Phosphorus Magnesium ALT Alkaline Phosphatase Total Creatine Kinase CK-MB (CK-2) Rel Index Troponin T Albumin LDL Cholesterol Direct PTH Intact Salicylates Acetaminophen Crossmatch 04/10/19 04/10/19 04/11/19 12:34 18:59 00:36 WBC RBC Hgb Hct MCV MCH MCHC RDW Lymph % (Auto) [place] % (Auto) Eos % (Auto) Lymph # [place] # Eos # Seg Neutrophils % Seg Neuts % (Manual) Lymphocytes % (Manual) Eosinophils % (Manual) Seg Neutrophils # Lymphocytes # (Manual) Eosinophils # (Manual) PT INR D-Dimer POC ABG pH POC ABG pCO2 POC ABG pO2 ABG pO2 ABG HCO3 ABG Base Excess ABG Hemoglobin Oxyhemoglobin Sodium Potassium Chloride Carbon Dioxide BUN Creatinine Glucose POC Glucose 112 H 109 H 124 H Calcium Phosphorus Magnesium ALT Alkaline Phosphatase Total Creatine Kinase CK-MB (CK-2) Rel Index Troponin T Albumin LDL Cholesterol Direct PTH Intact Salicylates Acetaminophen Crossmatch 04/11/19 04/11/19 04/12/19 08:01 17:25 02:18 WBC RBC Hgb Hct MCV MCH MCHC RDW Lymph % (Auto) [place] % (Auto) Eos % (Auto) Lymph # [place] # Eos # Seg Neutrophils % Seg Neuts % (Manual) Lymphocytes % (Manual) Eosinophils % (Manual) Seg Neutrophils # Lymphocytes # (Manual) Eosinophils # (Manual) PT INR D-Dimer POC ABG pH POC ABG pCO2 POC ABG pO2 ABG pO2 ABG HCO3 ABG Base Excess ABG Hemoglobin Oxyhemoglobin Sodium Potassium Chloride Carbon Dioxide BUN Creatinine Glucose POC Glucose 118 H 106 H 125 H Calcium Phosphorus Magnesium ALT Alkaline Phosphatase Total Creatine Kinase CK-MB (CK-2) Rel Index Troponin T Albumin LDL Cholesterol Direct PTH Intact Salicylates Acetaminophen Crossmatch 04/12/19 04/12/19 04/12/19 06:24 12:22 17:13 WBC RBC Hgb Hct MCV MCH MCHC RDW Lymph % (Auto) [place] % (Auto) Eos % (Auto) Lymph # [place] # Eos # Seg Neutrophils % Seg Neuts % (Manual) Lymphocytes % (Manual) Eosinophils % (Manual) Seg Neutrophils # Lymphocytes # (Manual) Eosinophils # (Manual) PT INR D-Dimer POC ABG pH POC ABG pCO2 POC ABG pO2 ABG pO2 ABG HCO3 ABG Base Excess ABG Hemoglobin Oxyhemoglobin Sodium Potassium Chloride Carbon Dioxide BUN Creatinine Glucose POC Glucose 128 H 114 H 110 H Calcium Phosphorus Magnesium ALT Alkaline Phosphatase Total Creatine Kinase CK-MB (CK-2) Rel Index Troponin T Albumin LDL Cholesterol Direct PTH Intact Salicylates Acetaminophen Crossmatch 04/13/19 04/13/19 04/13/19 06:59 07:31 07:31 WBC RBC 3.34 L Hgb 8.9 L Hct 28.6 L MCV MCH 27 L MCHC 31 L RDW 19.6 H Lymph % (Auto) [place] % (Auto) Eos % (Auto) Lymph # [place] # Eos # Seg Neutrophils % Seg Neuts % (Manual) Lymphocytes % (Manual) Eosinophils % (Manual) Seg Neutrophils # Lymphocytes # (Manual) Eosinophils # (Manual) PT INR D-Dimer POC ABG pH POC ABG pCO2 POC ABG pO2 ABG pO2 ABG HCO3 ABG Base Excess ABG Hemoglobin Oxyhemoglobin Sodium Potassium Chloride 96.4 L Carbon Dioxide 33 H BUN 66 H Creatinine 4.5 H Glucose 103 H POC Glucose 107 H Calcium Phosphorus Magnesium ALT Alkaline Phosphatase Total Creatine Kinase CK-MB (CK-2) Rel Index Troponin T Albumin LDL Cholesterol Direct PTH Intact Salicylates Acetaminophen Crossmatch 04/13/19 04/14/19 04/14/19 23:43 05:50 13:07 WBC RBC Hgb Hct MCV MCH MCHC RDW Lymph % (Auto) [place] % (Auto) Eos % (Auto) Lymph # [place] # Eos # Seg Neutrophils % Seg Neuts % (Manual) Lymphocytes % (Manual) Eosinophils % (Manual) Seg Neutrophils # Lymphocytes # (Manual) Eosinophils # (Manual) PT INR D-Dimer POC ABG pH POC ABG pCO2 POC ABG pO2 ABG pO2 ABG HCO3 ABG Base Excess ABG Hemoglobin Oxyhemoglobin Sodium Potassium Chloride Carbon Dioxide BUN Creatinine Glucose POC Glucose 119 H 112 H 112 H Calcium Phosphorus Magnesium ALT Alkaline Phosphatase Total Creatine Kinase CK-MB (CK-2) Rel Index Troponin T Albumin LDL Cholesterol Direct PTH Intact Salicylates Acetaminophen Crossmatch 04/14/19 04/15/19 04/15/19 18:35 01:18 05:17 WBC RBC Hgb Hct MCV MCH MCHC RDW Lymph % (Auto) [place] % (Auto) Eos % (Auto) Lymph # [place] # Eos # Seg Neutrophils % Seg Neuts % (Manual) Lymphocytes % (Manual) Eosinophils % (Manual) Seg Neutrophils # Lymphocytes # (Manual) Eosinophils # (Manual) PT INR D-Dimer POC ABG pH POC ABG pCO2 POC ABG pO2 ABG pO2 ABG HCO3 ABG Base Excess ABG Hemoglobin Oxyhemoglobin Sodium Potassium Chloride Carbon Dioxide BUN Creatinine Glucose POC Glucose 114 H 114 H 114 H Calcium Phosphorus Magnesium ALT Alkaline Phosphatase Total Creatine Kinase CK-MB (CK-2) Rel Index Troponin T Albumin LDL Cholesterol Direct PTH Intact Salicylates Acetaminophen Crossmatch 04/15/19 04/15/19 04/16/19 11:50 23:39 05:41 WBC RBC Hgb Hct MCV MCH MCHC RDW Lymph % (Auto) [place] % (Auto) Eos % (Auto) Lymph # [place] # Eos # Seg Neutrophils % Seg Neuts % (Manual) Lymphocytes % (Manual) Eosinophils % (Manual) Seg Neutrophils # Lymphocytes # (Manual) Eosinophils # (Manual) PT INR D-Dimer POC ABG pH POC ABG pCO2 POC ABG pO2 ABG pO2 ABG HCO3 ABG Base Excess ABG Hemoglobin Oxyhemoglobin Sodium Potassium Chloride Carbon Dioxide BUN Creatinine Glucose POC Glucose 109 H 115 H 125 H Calcium Phosphorus Magnesium ALT Alkaline Phosphatase Total Creatine Kinase CK-MB (CK-2) Rel Index Troponin T Albumin LDL Cholesterol Direct PTH Intact Salicylates Acetaminophen Crossmatch 04/16/19 04/17/19 04/17/19 12:53 01:00 12:38 WBC RBC Hgb Hct MCV MCH MCHC RDW Lymph % (Auto) [place] % (Auto) Eos % (Auto) Lymph # [place] # Eos # Seg Neutrophils % Seg Neuts % (Manual) Lymphocytes % (Manual) Eosinophils % (Manual) Seg Neutrophils # Lymphocytes # (Manual) Eosinophils # (Manual) PT INR D-Dimer POC ABG pH POC ABG pCO2 POC ABG pO2 ABG pO2 ABG HCO3 ABG Base Excess ABG Hemoglobin Oxyhemoglobin Sodium Potassium Chloride Carbon Dioxide BUN Creatinine Glucose POC Glucose 121 H 127 H 159 H Calcium Phosphorus Magnesium ALT Alkaline Phosphatase Total Creatine Kinase CK-MB (CK-2) Rel Index Troponin T Albumin LDL Cholesterol Direct PTH Intact Salicylates Acetaminophen Crossmatch 04/17/19 04/17/19 04/18/19 18:27 23:36 07:19 WBC RBC 3.49 L Hgb 9.0 L Hct 29.9 L MCV MCH 26 L MCHC 30 L RDW 20.0 H Lymph % (Auto) [place] % (Auto) Eos % (Auto) Lymph # [place] # Eos # Seg Neutrophils % Seg Neuts % (Manual) Lymphocytes % (Manual) Eosinophils % (Manual) Seg Neutrophils # Lymphocytes # (Manual) Eosinophils # (Manual) PT INR D-Dimer POC ABG pH POC ABG pCO2 POC ABG pO2 ABG pO2 ABG HCO3 ABG Base Excess ABG Hemoglobin Oxyhemoglobin Sodium Potassium Chloride Carbon Dioxide BUN Creatinine Glucose POC Glucose 109 H 134 H Calcium Phosphorus Magnesium ALT Alkaline Phosphatase Total Creatine Kinase CK-MB (CK-2) Rel Index Troponin T Albumin LDL Cholesterol Direct PTH Intact Salicylates Acetaminophen Crossmatch 04/18/19 04/18/19 04/18/19 07:19 12:16 17:09 WBC RBC Hgb Hct MCV MCH MCHC RDW Lymph % (Auto) [place] % (Auto) Eos % (Auto) Lymph # [place] # Eos # Seg Neutrophils % Seg Neuts % (Manual) Lymphocytes % (Manual) Eosinophils % (Manual) Seg Neutrophils # Lymphocytes # (Manual) Eosinophils # (Manual) PT INR D-Dimer POC ABG pH POC ABG pCO2 POC ABG pO2 ABG pO2 ABG HCO3 ABG Base Excess ABG Hemoglobin Oxyhemoglobin Sodium Potassium Chloride Carbon Dioxide BUN 41 H Creatinine 2.9 H Glucose 122 H POC Glucose 125 H 131 H Calcium Phosphorus Magnesium ALT Alkaline Phosphatase Total Creatine Kinase CK-MB (CK-2) Rel Index Troponin T Albumin LDL Cholesterol Direct PTH Intact Salicylates Acetaminophen Crossmatch 04/18/19 04/19/19 04/19/19 23:57 05:55 11:35 WBC RBC Hgb Hct MCV MCH MCHC RDW Lymph % (Auto) [place] % (Auto) Eos % (Auto) Lymph # [place] # Eos # Seg Neutrophils % Seg Neuts % (Manual) Lymphocytes % (Manual) Eosinophils % (Manual) Seg Neutrophils # Lymphocytes # (Manual) Eosinophils # (Manual) PT INR D-Dimer POC ABG pH POC ABG pCO2 POC ABG pO2 ABG pO2 ABG HCO3 ABG Base Excess ABG Hemoglobin Oxyhemoglobin Sodium Potassium Chloride Carbon Dioxide BUN Creatinine Glucose POC Glucose 159 H 144 H 177 H Calcium Phosphorus Magnesium ALT Alkaline Phosphatase Total Creatine Kinase CK-MB (CK-2) Rel Index Troponin T Albumin LDL Cholesterol Direct PTH Intact Salicylates Acetaminophen Crossmatch 04/19/19 04/20/19 04/20/19 16:36 02:05 06:28 WBC RBC Hgb Hct MCV MCH MCHC RDW Lymph % (Auto) [place] % (Auto) Eos % (Auto) Lymph # [place] # Eos # Seg Neutrophils % Seg Neuts % (Manual) Lymphocytes % (Manual) Eosinophils % (Manual) Seg Neutrophils # Lymphocytes # (Manual) Eosinophils # (Manual) PT INR D-Dimer POC ABG pH POC ABG pCO2 POC ABG pO2 ABG pO2 ABG HCO3 ABG Base Excess ABG Hemoglobin Oxyhemoglobin Sodium Potassium Chloride Carbon Dioxide BUN Creatinine Glucose POC Glucose 134 H 142 H 132 H Calcium Phosphorus Magnesium ALT Alkaline Phosphatase Total Creatine Kinase CK-MB (CK-2) Rel Index Troponin T Albumin LDL Cholesterol Direct PTH Intact Salicylates Acetaminophen Crossmatch 04/20/19 04/20/19 04/21/19 12:37 23:34 05:59 WBC RBC Hgb Hct MCV MCH MCHC RDW Lymph % (Auto) [place] % (Auto) Eos % (Auto) Lymph # [place] # Eos # Seg Neutrophils % Seg Neuts % (Manual) Lymphocytes % (Manual) Eosinophils % (Manual) Seg Neutrophils # Lymphocytes # (Manual) Eosinophils # (Manual) PT INR D-Dimer POC ABG pH POC ABG pCO2 POC ABG pO2 ABG pO2 ABG HCO3 ABG Base Excess ABG Hemoglobin Oxyhemoglobin Sodium Potassium Chloride Carbon Dioxide BUN Creatinine Glucose POC Glucose 163 H 166 H 140 H Calcium Phosphorus Magnesium ALT Alkaline Phosphatase Total Creatine Kinase CK-MB (CK-2) Rel Index Troponin T Albumin LDL Cholesterol Direct PTH Intact Salicylates Acetaminophen Crossmatch 04/21/19 04/21/19 04/21/19 12:07 17:22 23:43 WBC RBC Hgb Hct MCV MCH MCHC RDW Lymph % (Auto) [place] % (Auto) Eos % (Auto) Lymph # [place] # Eos # Seg Neutrophils % Seg Neuts % (Manual) Lymphocytes % (Manual) Eosinophils % (Manual) Seg Neutrophils # Lymphocytes # (Manual) Eosinophils # (Manual) PT INR D-Dimer POC ABG pH POC ABG pCO2 POC ABG pO2 ABG pO2 ABG HCO3 ABG Base Excess ABG Hemoglobin Oxyhemoglobin Sodium Potassium Chloride Carbon Dioxide BUN Creatinine Glucose POC Glucose 135 H 141 H 138 H Calcium Phosphorus Magnesium ALT Alkaline Phosphatase Total Creatine Kinase CK-MB (CK-2) Rel Index Troponin T Albumin LDL Cholesterol Direct PTH Intact Salicylates Acetaminophen Crossmatch 04/22/19 04/22/19 04/22/19 05:12 18:24 23:49 WBC RBC Hgb Hct MCV MCH MCHC RDW Lymph % (Auto) [place] % (Auto) Eos % (Auto) Lymph # [place] # Eos # Seg Neutrophils % Seg Neuts % (Manual) Lymphocytes % (Manual) Eosinophils % (Manual) Seg Neutrophils # Lymphocytes # (Manual) Eosinophils # (Manual) PT INR D-Dimer POC ABG pH POC ABG pCO2 POC ABG pO2 ABG pO2 ABG HCO3 ABG Base Excess ABG Hemoglobin Oxyhemoglobin Sodium Potassium Chloride Carbon Dioxide BUN Creatinine Glucose POC Glucose 141 H 137 H 142 H Calcium Phosphorus Magnesium ALT Alkaline Phosphatase Total Creatine Kinase CK-MB (CK-2) Rel Index Troponin T Albumin LDL Cholesterol Direct PTH Intact Salicylates Acetaminophen Crossmatch 04/23/19 04/23/19 04/23/19 05:53 08:13 11:58 WBC RBC Hgb Hct MCV MCH MCHC RDW Lymph % (Auto) [place] % (Auto) Eos % (Auto) Lymph # [place] # Eos # Seg Neutrophils % Seg Neuts % (Manual) Lymphocytes % (Manual) Eosinophils % (Manual) Seg Neutrophils # Lymphocytes # (Manual) Eosinophils # (Manual) PT INR D-Dimer POC ABG pH POC ABG pCO2 POC ABG pO2 ABG pO2 ABG HCO3 ABG Base Excess ABG Hemoglobin Oxyhemoglobin Sodium Potassium Chloride Carbon Dioxide BUN Creatinine Glucose POC Glucose 132 H 154 H 165 H Calcium Phosphorus Magnesium ALT Alkaline Phosphatase Total Creatine Kinase CK-MB (CK-2) Rel Index Troponin T Albumin LDL Cholesterol Direct PTH Intact Salicylates Acetaminophen Crossmatch 04/23/19 04/24/19 04/24/19 16:28 00:28 07:00 WBC RBC Hgb Hct MCV MCH MCHC RDW Lymph % (Auto) [place] % (Auto) Eos % (Auto) Lymph # [place] # Eos # Seg Neutrophils % Seg Neuts % (Manual) Lymphocytes % (Manual) Eosinophils % (Manual) Seg Neutrophils # Lymphocytes # (Manual) Eosinophils # (Manual) PT INR D-Dimer POC ABG pH POC ABG pCO2 POC ABG pO2 ABG pO2 ABG HCO3 ABG Base Excess ABG Hemoglobin Oxyhemoglobin Sodium Potassium Chloride Carbon Dioxide BUN Creatinine Glucose POC Glucose 136 H 140 H 141 H Calcium Phosphorus Magnesium ALT Alkaline Phosphatase Total Creatine Kinase CK-MB (CK-2) Rel Index Troponin T Albumin LDL Cholesterol Direct PTH Intact Salicylates Acetaminophen Crossmatch 04/24/19 04/24/19 04/25/19 12:38 18:57 00:38 WBC RBC Hgb Hct MCV MCH MCHC RDW Lymph % (Auto) [place] % (Auto) Eos % (Auto) Lymph # [place] # Eos # Seg Neutrophils % Seg Neuts % (Manual) Lymphocytes % (Manual) Eosinophils % (Manual) Seg Neutrophils # Lymphocytes # (Manual) Eosinophils # (Manual) PT INR D-Dimer POC ABG pH POC ABG pCO2 POC ABG pO2 ABG pO2 ABG HCO3 ABG Base Excess ABG Hemoglobin Oxyhemoglobin Sodium Potassium Chloride Carbon Dioxide BUN Creatinine Glucose POC Glucose 152 H 166 H 128 H Calcium Phosphorus Magnesium ALT Alkaline Phosphatase Total Creatine Kinase CK-MB (CK-2) Rel Index Troponin T Albumin LDL Cholesterol Direct PTH Intact Salicylates Acetaminophen Crossmatch 04/25/19 04/25/19 04/25/19 05:44 13:43 18:34 WBC RBC Hgb Hct MCV MCH MCHC RDW Lymph % (Auto) [place] % (Auto) Eos % (Auto) Lymph # [place] # Eos # Seg Neutrophils % Seg Neuts % (Manual) Lymphocytes % (Manual) Eosinophils % (Manual) Seg Neutrophils # Lymphocytes # (Manual) Eosinophils # (Manual) PT INR D-Dimer POC ABG pH POC ABG pCO2 POC ABG pO2 ABG pO2 ABG HCO3 ABG Base Excess ABG Hemoglobin Oxyhemoglobin Sodium Potassium Chloride Carbon Dioxide BUN Creatinine Glucose POC Glucose 153 H 186 H 124 H Calcium Phosphorus Magnesium ALT Alkaline Phosphatase Total Creatine Kinase CK-MB (CK-2) Rel Index Troponin T Albumin LDL Cholesterol Direct PTH Intact Salicylates Acetaminophen Crossmatch 04/26/19 04/26/19 04/26/19 00:59 05:52 10:12 WBC 11.5 H RBC 2.84 L Hgb 7.4 L Hct 23.3 L MCV 82 L MCH 26 L MCHC RDW 20.3 H Lymph % (Auto) 7.5 L [place] % (Auto) 7.5 H Eos % (Auto) 5.3 H Lymph # 0.9 L [place] # 0.9 H Eos # 0.6 H Seg Neutrophils % 79.2 H Seg Neuts % (Manual) Lymphocytes % (Manual) Eosinophils % (Manual) Seg Neutrophils # 9.1 H Lymphocytes # (Manual) Eosinophils # (Manual) PT INR D-Dimer POC ABG pH POC ABG pCO2 POC ABG pO2 ABG pO2 ABG HCO3 ABG Base Excess ABG Hemoglobin Oxyhemoglobin Sodium Potassium Chloride Carbon Dioxide BUN Creatinine Glucose POC Glucose 163 H 146 H Calcium Phosphorus Magnesium ALT Alkaline Phosphatase Total Creatine Kinase CK-MB (CK-2) Rel Index Troponin T Albumin LDL Cholesterol Direct PTH Intact Salicylates Acetaminophen Crossmatch 04/26/19 04/26/19 04/26/19 10:12 12:15 19:00 WBC RBC Hgb Hct MCV MCH MCHC RDW Lymph % (Auto) [place] % (Auto) Eos % (Auto) Lymph # [place] # Eos # Seg Neutrophils % Seg Neuts % (Manual) Lymphocytes % (Manual) Eosinophils % (Manual) Seg Neutrophils # Lymphocytes # (Manual) Eosinophils # (Manual) PT INR D-Dimer POC ABG pH POC ABG pCO2 POC ABG pO2 ABG pO2 ABG HCO3 ABG Base Excess ABG Hemoglobin Oxyhemoglobin Sodium 130 L Potassium Chloride 87.4 L Carbon Dioxide BUN 93 H Creatinine 4.2 H Glucose 140 H POC Glucose 155 H 179 H Calcium Phosphorus Magnesium ALT Alkaline Phosphatase Total Creatine Kinase CK-MB (CK-2) Rel Index Troponin T Albumin LDL Cholesterol Direct PTH Intact Salicylates Acetaminophen Crossmatch 04/27/19 04/27/19 04/27/19 00:23 06:34 17:13 WBC RBC Hgb Hct MCV MCH MCHC RDW Lymph % (Auto) [place] % (Auto) Eos % (Auto) Lymph # [place] # Eos # Seg Neutrophils % Seg Neuts % (Manual) Lymphocytes % (Manual) Eosinophils % (Manual) Seg Neutrophils # Lymphocytes # (Manual) Eosinophils # (Manual) PT INR D-Dimer POC ABG pH POC ABG pCO2 POC ABG pO2 ABG pO2 ABG HCO3 ABG Base Excess ABG Hemoglobin Oxyhemoglobin Sodium Potassium Chloride Carbon Dioxide BUN Creatinine Glucose POC Glucose 158 H 140 H 152 H Calcium Phosphorus Magnesium ALT Alkaline Phosphatase Total Creatine Kinase CK-MB (CK-2) Rel Index Troponin T Albumin LDL Cholesterol Direct PTH Intact Salicylates Acetaminophen Crossmatch 04/27/19 04/28/19 04/28/19 23:50 05:18 11:37 WBC RBC Hgb Hct MCV MCH MCHC RDW Lymph % (Auto) [place] % (Auto) Eos % (Auto) Lymph # [place] # Eos # Seg Neutrophils % Seg Neuts % (Manual) Lymphocytes % (Manual) Eosinophils % (Manual) Seg Neutrophils # Lymphocytes # (Manual) Eosinophils # (Manual) PT INR D-Dimer POC ABG pH POC ABG pCO2 POC ABG pO2 ABG pO2 ABG HCO3 ABG Base Excess ABG Hemoglobin Oxyhemoglobin Sodium Potassium Chloride Carbon Dioxide BUN Creatinine Glucose POC Glucose 160 H 145 H 177 H Calcium Phosphorus Magnesium ALT Alkaline Phosphatase Total Creatine Kinase CK-MB (CK-2) Rel Index Troponin T Albumin LDL Cholesterol Direct PTH Intact Salicylates Acetaminophen Crossmatch 04/28/19 04/28/19 04/29/19 18:31 23:47 05:50 WBC RBC Hgb Hct MCV MCH MCHC RDW Lymph % (Auto) [place] % (Auto) Eos % (Auto) Lymph # [place] # Eos # Seg Neutrophils % Seg Neuts % (Manual) Lymphocytes % (Manual) Eosinophils % (Manual) Seg Neutrophils # Lymphocytes # (Manual) Eosinophils # (Manual) PT INR D-Dimer POC ABG pH POC ABG pCO2 POC ABG pO2 ABG pO2 ABG HCO3 ABG Base Excess ABG Hemoglobin Oxyhemoglobin Sodium Potassium Chloride Carbon Dioxide BUN Creatinine Glucose POC Glucose 153 H 117 H 177 H Calcium Phosphorus Magnesium ALT Alkaline Phosphatase Total Creatine Kinase CK-MB (CK-2) Rel Index Troponin T Albumin LDL Cholesterol Direct PTH Intact Salicylates Acetaminophen Crossmatch 04/29/19 04/30/19 04/30/19 17:04 01:02 06:42 WBC RBC Hgb Hct MCV MCH MCHC RDW Lymph % (Auto) [place] % (Auto) Eos % (Auto) Lymph # [place] # Eos # Seg Neutrophils % Seg Neuts % (Manual) Lymphocytes % (Manual) Eosinophils % (Manual) Seg Neutrophils # Lymphocytes # (Manual) Eosinophils # (Manual) PT INR D-Dimer POC ABG pH POC ABG pCO2 POC ABG pO2 ABG pO2 ABG HCO3 ABG Base Excess ABG Hemoglobin Oxyhemoglobin Sodium Potassium Chloride Carbon Dioxide BUN Creatinine Glucose POC Glucose 205 H 143 H 145 H Calcium Phosphorus Magnesium ALT Alkaline Phosphatase Total Creatine Kinase CK-MB (CK-2) Rel Index Troponin T Albumin LDL Cholesterol Direct PTH Intact Salicylates Acetaminophen Crossmatch 04/30/19 04/30/19 04/30/19 11:31 18:12 23:38 WBC RBC Hgb Hct MCV MCH MCHC RDW Lymph % (Auto) [place] % (Auto) Eos % (Auto) Lymph # [place] # Eos # Seg Neutrophils % Seg Neuts % (Manual) Lymphocytes % (Manual) Eosinophils % (Manual) Seg Neutrophils # Lymphocytes # (Manual) Eosinophils # (Manual) PT INR D-Dimer POC ABG pH POC ABG pCO2 POC ABG pO2 ABG pO2 ABG HCO3 ABG Base Excess ABG Hemoglobin Oxyhemoglobin Sodium Potassium Chloride Carbon Dioxide BUN Creatinine Glucose POC Glucose 162 H 117 H 139 H Calcium Phosphorus Magnesium ALT Alkaline Phosphatase Total Creatine Kinase CK-MB (CK-2) Rel Index Troponin T Albumin LDL Cholesterol Direct PTH Intact Salicylates Acetaminophen Crossmatch 05/01/19 05/01/19 05/02/19 06:06 23:41 05:59 WBC RBC Hgb Hct MCV MCH MCHC RDW Lymph % (Auto) [place] % (Auto) Eos % (Auto) Lymph # [place] # Eos # Seg Neutrophils % Seg Neuts % (Manual) Lymphocytes % (Manual) Eosinophils % (Manual) Seg Neutrophils # Lymphocytes # (Manual) Eosinophils # (Manual) PT INR D-Dimer POC ABG pH POC ABG pCO2 POC ABG pO2 ABG pO2 ABG HCO3 ABG Base Excess ABG Hemoglobin Oxyhemoglobin Sodium Potassium Chloride Carbon Dioxide BUN Creatinine Glucose POC Glucose 150 H 140 H 130 H Calcium Phosphorus Magnesium ALT Alkaline Phosphatase Total Creatine Kinase CK-MB (CK-2) Rel Index Troponin T Albumin LDL Cholesterol Direct PTH Intact Salicylates Acetaminophen Crossmatch 05/02/19 05/02/19 11:55 18:10 WBC RBC Hgb Hct MCV MCH MCHC RDW Lymph % (Auto) [place] % (Auto) Eos % (Auto) Lymph # [place] # Eos # Seg Neutrophils % Seg Neuts % (Manual) Lymphocytes % (Manual) Eosinophils % (Manual) Seg Neutrophils # Lymphocytes # (Manual) Eosinophils # (Manual) PT INR D-Dimer POC ABG pH POC ABG pCO2 POC ABG pO2 ABG pO2 ABG HCO3 ABG Base Excess ABG Hemoglobin Oxyhemoglobin Sodium Potassium Chloride Carbon Dioxide BUN Creatinine Glucose POC Glucose 146 H 141 H Calcium Phosphorus Magnesium ALT Alkaline Phosphatase Total Creatine Kinase CK-MB (CK-2) Rel Index Troponin T Albumin LDL Cholesterol Direct PTH Intact Salicylates Acetaminophen Crossmatch Chest x-ray: report reviewed, image reviewed
[2019-05-03] MEDS: INSULIN REGULAR, HUMAN 100 UNITS/1 ML SUB-Q SCH ×4 (01:10→18:39)
[2019-05-03 06:08] LABS: Basophils # (Auto) 0.1 K/mm3 (0.0-0.1); Basophils % (Auto) 0.7 % (0.0-1.8); Eosinophils % (Auto) 10.6 % (0.0-4.3); Hematocrit 22.9 % (35.5-45.6); Hemoglobin 7.2 gm/dl (11.8-15.2); Lymphocytes # (Auto) 1.1 K/mm3 (1.2-5.4); Lymphocytes % (Auto) 11.8 % (13.4-35.0); Mean Corpuscular HGB Conc 32 % (32-34); Mean Corpuscular Volume 81 fl (84-94); Monocytes # (Auto) 0.6 K/mm3 (0.0-0.8); Monocytes % (Auto) 6.5 % (0.0-7.3); Platelet Count 456 K/mm3 (140-440); Red Blood Count 2.84 M/mm3 (3.65-5.03)
[2019-05-03 06:11] LABS: Red Cell Distribution Width 20.6 % (13.2-15.2)
[2019-05-03] MEDS: IPRATROPIUM/ALBUTEROL SULFATE 3 ML AMPUL.NEB IH SCH ×3 (08:14→19:57)
--- NOTE | 2019-05-03 09:38 | Progress Note ---
Assessment and Plan Assessment: * End stage renal disease (outpatient TTS schedule) * Acute hypoxic respiratory failure on mechanical ventilation * Atrial fibrillation * History of CVA * Anemia secondary to ESRD * Secondary hyperparathyroidism Plan * Continue HD MWF schedule for now while inpatient * hb noted, 7.2, plan prbcs prn with dialysis * UF as tolerated * AVG in use. * Nutrition per primary team * Dose medications for renal function * Epogen 20K TID Overall prognosis remains poor; will continue to follow for ESRD needs while inpatient. Subjective Date of service: 05/03/19 Principal diagnosis: Respiratory failure, acute on chronic systolic HF, ESRD Interval history: no acute events Objective - Exam Narrative Exam: General appearance: chronically ill, intubated, frail EENT: normocephalic Neck: ETT in place Respiratory: coarse mechanical breath sounds bilaterally Cardiology: regular, S1S2, no edema Gastrointestinal: PEG and colostomy noted Integumentary: warm and dry Psychiatric: unable to assess - Vital Signs Vital signs: Vital Signs - 12hr 05/02/19 05/03/19 05/03/19 22:00 00:03 04:17 Temperature 97.7 F Pulse Rate 88 89 Pulse Rate [ Anterior Bilateral Throughout] Respiratory 20 16 Rate Respiratory Rate [Anterior Bilateral Throughout] Blood Pressure 122/65 O2 Sat by Pulse 100 Oximetry O2 Sat by Pulse 98 Oximetry [ Assessment] 05/03/19 05/03/19 05/03/19 04:45 07:34 08:00 Temperature 97.4 F L 98.1 F Pulse Rate 102 H Pulse Rate [ 100 H Anterior Bilateral Throughout] Respiratory 16 18 Rate Respiratory 18 Rate [Anterior Bilateral Throughout] Blood Pressure 121/64 135/71 O2 Sat by Pulse 95 Oximetry O2 Sat by Pulse Oximetry [ Assessment] 05/03/19 05/03/19 08:10 08:49 Temperature Pulse Rate Pulse Rate [ Anterior Bilateral Throughout] Respiratory Rate Respiratory Rate [Anterior Bilateral Throughout] Blood Pressure O2 Sat by Pulse 97 Oximetry O2 Sat by Pulse 97 Oximetry [ Assessment] - Lab 05/03/19 05:49 05/03/19 05:49 Most recent lab results ABG pH 7.424 pH Units (7.350-7.450) 03/19/19 04:23 ABG pCO2 48.0 mm Hg 03/19/19 04:23 ABG pO2 78.3 mm Hg (80.0-90.0) L 03/19/19 04:23 ABG HCO3 30.7 mmol/L (20.0-26.0) H 03/19/19 04:23 ABG O2 Saturation 97.0 % (95.0-99.0) 03/19/19 04:23 Calcium 10.0 mg/dL (8.4-10.2) 05/03/19 05:49 Phosphorus 4.30 mg/dL (2.5-4.5) D 03/31/19 10:26 Magnesium 2.70 mg/dL (1.7-2.3) H 03/30/19 10:13 Medications & Allergies - Medications Allergies/Adverse Reactions: Allergies haloperidol [From Haldol] Adverse Reaction (Verified 03/13/18 12:10) Unknown haloperidol lactate [From Haldol] Adverse Reaction (Verified 03/13/18 12:10) Unknown Home Medications: Home Medications Medication Instructions Recorded Confirmed Last Taken Type risperiDONE [RisperDAL] 1 mg PO QAM 03/13/18 02/21/19 Unknown History Sertraline [Zoloft] 100 mg PO QDAY 08/26/18 02/21/19 Unknown History Polyethylene Glycol 3350 [Miralax 17 gm PO QDAY #30 packet 11/05/18 02/21/19 Unknown Rx 3350] Aspirin EC [Halfprin EC] 81 mg PO DAILY #30 11/19/18 02/21/19 Unknown Rx Docusate Sodium [Colace CAP] 100 mg PO BID #60 11/19/18 02/21/19 Unknown Rx Folic Acid [Folvite] 1 mg PO DAILY #30 tab 11/19/18 02/21/19 Unknown Rx Famotidine [Pepcid] 20 mg PO DAILY tablet 12/08/18 02/21/19 Unknown Rx Gabapentin [Neurontin] 100 mg PO QHS capsule 12/08/18 02/21/19 Unknown Rx Metoprolol [Lopressor TAB] 50 mg PO BID 30 Days tablet 12/08/18 02/21/19 Unknown Rx Sevelamer Carbonate [Renvela] 800 mg PO TIDWM tablet 12/08/18 02/21/19 Unknown Rx hydrALAZINE [Apresoline TAB] 100 mg PO Q8HR #120 tablet 12/08/18 02/21/19 Unknown Rx Acetaminophen [Acetaminophen TAB] 650 mg PO Q12H PRN 12/15/18 02/21/19 Unknown History Glucagon,Human Recombinant 1 mg IJ Q15MIN PRN 12/15/18 02/21/19 Unknown History [Glucagon Emergency Kit] Insulin Aspart [NovoLOG 100 See Protocol SQ QWEEK 12/15/18 02/21/19 Unknown History UNITS/ML VIAL] Active Medications: Generic Name Dose Route Start Last Admin Trade Name Freq PRN Reason Stop Dose Admin Albuterol/Ipratropium 1 ampul 02/24/19 20:00 05/03/19 08:14 Duoneb *Not For Prn Use* IH 1 ampul TIDRT SANCHEZ Administration Lipase/Protease/Amylase 1 each 04/10/19 15:16 Pancreaze 10,500 Unit FEEDTUBE PRN PRN For Clogged Feeding Tube Epoetin Solitario 20,000 unit 03/24/19 11:17 04/29/19 13:17 Procrit IV 20,000 unit UMA PRN Administration hemodialysis Famotidine 20 mg 02/23/19 10:00 05/02/19 10:27 Pepcid PO 20 mg DAILY SANCHEZ Administration Insulin Human Regular 0 units 02/26/19 12:00 05/03/19 06:30 Humulin R SUB-Q Not Given Q6HR [facility] Protocol Metoprolol Tartrate 2.5 mg 02/28/19 12:06 03/15/19 05:15 Lopressor IV 2.5 mg Q4HR PRN Administration Tachycardia Risperidone 1 mg 02/25/19 13:00 05/02/19 10:27 Risperdal PO 1 mg DAILY SANCHEZ Administration Sertraline HCl 100 mg 02/25/19 13:00 05/02/19 10:27 Zoloft PO 100 mg DAILY SANCHEZ Administration Simple Syrup 15 ml 04/10/19 15:16 Simple Syrup FEEDTUBE PRN PRN Hypoglycemia Simple Syrup 30 ml 04/10/19 15:16 Simple Syrup FEEDTUBE PRN PRN Hypoglycemia Sodium Bicarbonate 325 mg 04/10/19 15:16 Sodium Bicarbonate FEEDTUBE PRN PRN For Clogged Feeding Tube Sodium Hypochlorite 1 applic 04/01/19 13:00 05/02/19 23:08 Dakin's Half Strength TP 1 applicatio BID SANCHEZ Administration
[2019-05-03] MEDS: FAMOTIDINE 20 MG TAB PO SCH (10:03)
[2019-05-03] MEDS: SERTRALINE 100 MG TAB PO SCH (10:03)
[2019-05-03] MEDS: SODIUM HYPOCHLORITE, DAKIN'S 1/2 STRENGTH (0.25%) 473 ML TOPICAL SOLN TP SCH ×2 (10:04→22:00)
[2019-05-03] MEDS: risperiDONE 1 MG TAB PO SCH (10:04)
--- NOTE | 2019-05-03 14:51 | Progress Note ---
Assessment and Plan /Acute respiratory failure on mechanical ventilator >96 hrs Likely from pulmonary edema with volume overload from end-stage renal disease a nd underlying CHF Extubated ; history of tracheostomy on T piece Current management , nebulizers, Currently on trach/peg placed on 03/03. Now off vent, cont oxygen supplement, improving, on t piece, nebulizers, pulmonary critical following /acute on chronic systolic CHF/ Acute pulmonary edema, HD per schedule /Dilated CMP, EF 35-40% Continue diuresis, supportive care /Acute metabolic encephalopathy, resolved, has baseline Dementia. /ESRD on hemodialysis per schedule nephrology following /-Bilateral pleural effusions improved with HD /Permanent atrial fibrillation and flutter and hypercoaguable state Not on anticoagulation because of anemia thrombocytopenia rate control meds optimized /-Diabetes mellitus type 2 Accu-Chek sliding scale coverage Insulin as needed /NSTEMI type 2 , Cardiology following /-Schizophrenia:stable /-Legally blind, supportive care /-hypertension, Monitor BP,'s adjust medications as needed /-Hypokalemia; corrected /-Pulmonary hypertension; continue current management /-Dysphagia s/p PEG tube; PEG tubes per protocol /-Severe malnutrition /hypoalbuminemia with FTT: 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, 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/02/19 /-Multiple decubitus, different stages , s/ p colostomy Left 5th finger, stage 4 pressure ulcer Left heel, deep tissue injury Sacrum, stage 4 pressure ulcer POA Continue wound care /-History of sacral osteomyelitis and LE ulcers Completed Antibiotics, contact isolation for ESBL Klebsiella pneumonia on wound culture 01/02/19 /-Anemia of chronic disease s/p 1 unit of prbc , stable /-RUL atelectasis, probably mucous plugging, resolved /-DVT prophylaxis; Lovenox -/ COD status; DNR --Very poor prognosis Dispo; Awaiting SNF placement , difficult to place ,unable to find any NH to take patient. Brief History: Patient is 63-year-old -[place] male patient from [facility] with multiple co-morbidities including blindness, CVA, CHF, PPM/ICD, loop recorder since 2012 that is MRI compatible, IDDM type 2, sepsis left foot ulcer, afib, ESRD with complications on HD TTS, hypertension, AOCD and GERD who presented to the ED with hypotensive after intubation in the emergency room. diagnosed with fluid overload, pleural effusion. Patient has had recurrent admission in the hospital for similar reason and was recently discharged from the hospital following treatment of Severe Sepsis due to Necrotizing Unstagable sacral decubitus ulcer with ostemomylitis, has receiv ed multiple courses of broad spectrum abx. Admitted for Acute hypoxic respiratory failure, status post intubation and ventilatory support, now off vent, on T-piece waiting on placement Hospitalist Physical Patient is on trach and PEG, ON 5L The patient appeared well nourished and normally developed. Vital signs as documented. Head exam is unremarkable. No scleral icterus . Neck is without jugular venous distension, thyromegaly, or carotid bruits. Lungs are clear to auscultation. Cardiac exam reveals regular rate and Rhythm. First and second heart sounds normal. No murmurs, rubs or gallops. Abdominal exam reveals PEG tube in place, colostomy bag in place. Extremities are nonedematous and both femoral and pedal pulses are normal. 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 Subjective Date of service: 05/03/19 Principal diagnosis: Respiratory failure, acute on chronic systolic HF, ESRD Interval history: Patient seen and examined No acute event overnight Patient remained on trach, no family at bedside Discussed with RN and case management about plan of care and discharge planning Objective - Constitutional Vitals: Vital Signs - 12hr 05/03/19 05/03/19 05/03/19 04:17 04:45 07:34 Temperature 97.4 F L 98.1 F Pulse Rate 102 H Pulse Rate [ Anterior Bilateral Throughout] Pulse Rate [ Apical] Respiratory 16 18 Rate Respiratory Rate [Anterior Bilateral Throughout] Blood Pressure 121/64 135/71 O2 Sat by Pulse 95 Oximetry O2 Sat by Pulse 98 Oximetry [ Assessment] 05/03/19 05/03/19 05/03/19 08:00 08:10 08:49 Temperature Pulse Rate Pulse Rate [ 100 H Anterior Bilateral Throughout] Pulse Rate [ Apical] Respiratory Rate Respiratory 18 Rate [Anterior Bilateral Throughout] Blood Pressure O2 Sat by Pulse 97 Oximetry O2 Sat by Pulse 97 Oximetry [ Assessment] 05/03/19 05/03/19 05/03/19 10:00 11:11 11:38 Temperature 98.0 F Pulse Rate 88 121 H Pulse Rate [ Anterior Bilateral Throughout] Pulse Rate [ 98 H Apical] Respiratory 20 18 Rate Respiratory Rate [Anterior Bilateral Throughout] Blood Pressure 112/49 O2 Sat by Pulse 100 Oximetry O2 Sat by Pulse Oximetry [ Assessment] 05/03/19 13:10 Temperature Pulse Rate Pulse Rate [ 118 H Anterior Bilateral Throughout] Pulse Rate [ Apical] Respiratory Rate Respiratory 18 Rate [Anterior Bilateral Throughout] Blood Pressure O2 Sat by Pulse Oximetry O2 Sat by Pulse Oximetry [ Assessment] - Labs CBC & Chem 7: 05/05/19 05:36 05/04/19 07:30 Labs: Abnormal lab results 05/02/19 05/03/19 05/03/19 Range/Units 18:10 00:15 05:49 RBC 2.84 L (3.65-5.03) M/mm3 Hgb 7.2 L (11.8-15.2) gm/dl Hct 22.9 L (35.5-45.6) % MCV 81 L (84-94) fl MCH 26 L (28-32) pg RDW 20.6 H (13.2-15.2) % Plt Count 456 H (140-440) K/mm3 Lymph % (Auto) 11.8 L (13.4-35.0) % Eos % (Auto) 10.6 H (0.0-4.3) % Lymph # 1.1 L (1.2-5.4) K/mm3 Eos # 1.0 H (0.0-0.4) K/mm3 Seg Neutrophils % 70.4 H (40.0-70.0) % Chloride (98-107) mmol/L BUN (9-20) mg/dL Creatinine (0.8-1.5) mg/dL Glucose (75-100) mg/dL POC Glucose 141 H 145 H (70-105) 05/03/19 05/03/19 05/03/19 Range/Units 05:49 06:01 11:04 RBC (3.65-5.03) M/mm3 Hgb (11.8-15.2) gm/dl Hct (35.5-45.6) % MCV (84-94) fl MCH (28-32) pg RDW (13.2-15.2) % Plt Count (140-440) K/mm3 Lymph % (Auto) (13.4-35.0) % Eos % (Auto) (0.0-4.3) % Lymph # (1.2-5.4) K/mm3 Eos # (0.0-0.4) K/mm3 Seg Neutrophils % (40.0-70.0) % Chloride 94.8 L (98-107) mmol/L BUN 66 H (9-20) mg/dL Creatinine 3.6 H (0.8-1.5) mg/dL Glucose 129 H (75-100) mg/dL POC Glucose 135 H 191 H (70-105)
--- NOTE | 2019-05-03 20:02 | Progress Note ---
Assessment and Plan Imp: 1. Acute encephalopathy, probably metabolic or toxic, resolved 2. A/C systolic CHF 3. Dilated CMP 4. Pulm HTN 5. ESRD 6. RUL atelectasis, probably mucous plugging -> resolved 7. KEON pneumonia, resolved Rec: 1. Chest PT, Duonebs 2. Tolerating Tpiece; monitor; medically I believe his trach should be permanent for airway management but he may require decannulation for placement in a SNF; he is tolerating PMV and goal will be to increase amount of time with PMV in place, then possibly cap or downsize to 4 cuffless trach first; cuffed trach is noted to be at the bedside for emergency purposes 3. Avoid sedatives; resumed psych meds 4. DVT and GI PPx 5. TFs per PEG 6. HD per renal 7. Agree w/ DNR as per family wishes although hospice is the most appropriate course for him Await placement No family present Subjective Date of service: 05/03/19 Principal diagnosis: Respiratory failure, acute on chronic systolic HF, ESRD Interval history: No events. Mentation near usual poor baseline. Does respond to basic questions but cannot give hx. On 28% per Tpiece. On HD. Tolerating PSV well per ST notes. Active Medications Albuterol/Ipratropium (Duoneb *Not For Prn Use*) 1 ampul IH TIDRT [facility] Last Admin: 05/03/19 19:57 Dose: 1 ampul Documented by: Lipase/Protease/Amylase ([place] 10,500 Unit) 1 each FEEDTUBE PRN PRN PRN Reason: For Clogged Feeding Tube Epoetin Solitario (Procrit) 20,000 unit IV UMA PRN PRN Reason: hemodialysis Last Admin: 04/29/19 13:17 Dose: 20,000 unit Documented by: Famotidine (Pepcid) 20 mg PO DAILY [facility] Last Admin: 05/03/19 10:03 Dose: 20 mg Documented by: Insulin Human Regular (Humulin R) 0 units SUB-Q Q6HR [facility]; Protocol Last Admin: 05/03/19 18:39 Dose: 1 units Documented by: Metoprolol Tartrate (Lopressor) 2.5 mg IV Q4HR PRN PRN Reason: Tachycardia Last Admin: 03/15/19 05:15 Dose: 2.5 mg Documented by: Risperidone (Risperdal) 1 mg PO DAILY [facility] Last Admin: 05/03/19 10:04 Dose: 1 mg Documented by: Sertraline HCl (Zoloft) 100 mg PO DAILY [facility] Last Admin: 05/03/19 10:03 Dose: 100 mg Documented by: Simple Syrup (Simple Syrup) 15 ml FEEDTUBE PRN PRN PRN Reason: Hypoglycemia Simple Syrup (Simple Syrup) 30 ml FEEDTUBE PRN PRN PRN Reason: Hypoglycemia Sodium Bicarbonate (Sodium Bicarbonate) 325 mg FEEDTUBE PRN PRN PRN Reason: For Clogged Feeding Tube Sodium Hypochlorite (Dakin's Half Strength) 1 applic TP BID [facility] Last Admin: 05/03/19 10:04 Dose: 1 applicatio Documented by: Objective Vital Signs - 12hr 05/03/19 05/03/19 05/03/19 08:10 08:49 10:00 Temperature Pulse Rate Pulse Rate [ Anterior Bilateral Throughout] Pulse Rate [ 98 H Apical] Respiratory 20 Rate Respiratory Rate [Anterior Bilateral Throughout] Blood Pressure O2 Sat by Pulse 97 Oximetry O2 Sat by Pulse 97 Oximetry [ Assessment] 05/03/19 05/03/19 05/03/19 11:11 11:38 13:10 Temperature 98.0 F Pulse Rate 88 121 H Pulse Rate [ 118 H Anterior Bilateral Throughout] Pulse Rate [ Apical] Respiratory 18 Rate Respiratory 18 Rate [Anterior Bilateral Throughout] Blood Pressure 112/49 O2 Sat by Pulse 100 Oximetry O2 Sat by Pulse Oximetry [ Assessment] 05/03/19 05/03/19 16:50 19:42 Temperature 99.1 F 98.0 F Pulse Rate 87 Pulse Rate [ Anterior Bilateral Throughout] Pulse Rate [ Apical] Respiratory 18 20 Rate Respiratory Rate [Anterior Bilateral Throughout] Blood Pressure 99/55 111/53 O2 Sat by Pulse 82 L Oximetry O2 Sat by Pulse Oximetry [ Assessment] Constitutional: no acute distress, alert Eyes: non-icteric ENT: oropharynx moist Neck: supple Effort: normal Ascultation: Bilateral: other (coarse BS bilaterally) Cardiovascular: regular rate and rhythm (no mrg) Gastrointestinal: normoactive bowel sounds, soft, non-tender, non-distended, other (ostomy in place, brown stool) Extremities: no cyanosis, no edema, pink and warm Neurologic: other (mild weakness LUE, o/w nonfocal) Psychiatric: other (unable to assess) CBC and BMP: 05/03/19 05:49 05/03/19 05:49 ABG, PT/INR, D-dimer: ABG POC ABG pH 7.510 (7.35-7.45) H 03/18/19 06:38 ABG pH 7.424 pH Units (7.350-7.450) 03/19/19 04:23 POC ABG pCO2 38.9 (35-45) 03/18/19 06:38 ABG pCO2 48.0 mm Hg 03/19/19 04:23 POC ABG pO2 164 (80-105) H 03/18/19 06:38 ABG pO2 78.3 mm Hg (80.0-90.0) L 03/19/19 04:23 POC ABG HCO3 31.0 (22-26 mml/L) 03/18/19 06:38 POC ABG Total CO2 32 (23-27mmol/L) 03/18/19 06:38 POC ABG O2 Sat 100 03/18/19 06:38 ABG O2 Saturation 97.0 % (95.0-99.0) 03/19/19 04:23 PT/INR, D-dimer PT 16.3 Sec. (12.2-14.9) H 03/01/19 09:39 INR 1.35 (0.87-1.13) H 03/01/19 09:39 D-Dimer 2987.82 ng/mlDDU (0-234) H 02/22/19 05:54 Abnormal lab findings: Abnormal Labs 02/21/19 02/21/19 02/21/19 18:30 18:30 18:30 WBC RBC 3.26 L Hgb 8.8 L Hct 29.0 L MCV MCH 27 L MCHC 30 L RDW 19.1 H Plt Count Lymph % (Auto) 6.1 L Mckean % (Auto) Eos % (Auto) Lymph # 0.4 L Mckean # Eos # Seg Neutrophils % 86.2 H Seg Neuts % (Manual) Lymphocytes % (Manual) Eosinophils % (Manual) Seg Neutrophils # Lymphocytes # (Manual) Eosinophils # (Manual) PT INR D-Dimer POC ABG pH POC ABG pCO2 POC ABG pO2 ABG pO2 ABG HCO3 ABG Base Excess ABG Hemoglobin Oxyhemoglobin Sodium 133 L Potassium 3.3 L Chloride 93.1 L Carbon Dioxide 33 H BUN Creatinine Glucose 161 H POC Glucose Calcium Phosphorus Magnesium ALT Alkaline Phosphatase 136 H Total Creatine Kinase 37 L CK-MB (CK-2) Rel Index Troponin T 0.192 H* Albumin 2.4 L LDL Cholesterol Direct 36 L PTH Intact Salicylates Acetaminophen Crossmatch 02/21/19 02/21/19 02/21/19 18:42 20:04 20:04 WBC RBC Hgb Hct MCV MCH MCHC RDW Plt Count Lymph % (Auto) Mckean % (Auto) Eos % (Auto) Lymph # Mckean # Eos # Seg Neutrophils % Seg Neuts % (Manual) Lymphocytes % (Manual) Eosinophils % (Manual) Seg Neutrophils # Lymphocytes # (Manual) Eosinophils # (Manual) PT INR D-Dimer POC ABG pH POC ABG pCO2 56.7 H POC ABG pO2 291 H ABG pO2 ABG HCO3 ABG Base Excess ABG Hemoglobin Oxyhemoglobin Sodium Potassium Chloride Carbon Dioxide BUN Creatinine Glucose POC Glucose Calcium Phosphorus Magnesium ALT Alkaline Phosphatase Total Creatine Kinase CK-MB (CK-2) Rel Index Troponin T Albumin LDL Cholesterol Direct PTH Intact Salicylates < 0.3 L Acetaminophen < 5.0 L Crossmatch 02/21/19 02/22/19 02/22/19 22:35 03:42 03:42 WBC RBC 3.20 L Hgb 8.8 L Hct 27.6 L MCV MCH MCHC RDW 18.9 H Plt Count Lymph % (Auto) 7.4 L Mckean % (Auto) Eos % (Auto) Lymph # 0.7 L Mckean # Eos # Seg Neutrophils % 84.7 H Seg Neuts % (Manual) Lymphocytes % (Manual) Eosinophils % (Manual) Seg Neutrophils # Lymphocytes # (Manual) Eosinophils # (Manual) PT INR D-Dimer POC ABG pH POC ABG pCO2 POC ABG pO2 ABG pO2 ABG HCO3 ABG Base Excess ABG Hemoglobin Oxyhemoglobin Sodium 134 L Potassium 2.6 L* D Chloride Carbon Dioxide BUN Creatinine Glucose POC Glucose Calcium Phosphorus Magnesium ALT Alkaline Phosphatase Total Creatine Kinase CK-MB (CK-2) Rel Index 5.2 H Troponin T 0.202 H* Albumin LDL Cholesterol Direct PTH Intact Salicylates Acetaminophen Crossmatch 02/22/19 02/22/19 02/22/19 03:42 05:54 09:04 WBC RBC Hgb Hct MCV MCH MCHC RDW Plt Count Lymph % (Auto) Mckean % (Auto) Eos % (Auto) Lymph # Mckean # Eos # Seg Neutrophils % Seg Neuts % (Manual) Lymphocytes % (Manual) Eosinophils % (Manual) Seg Neutrophils # Lymphocytes # (Manual) Eosinophils # (Manual) PT INR D-Dimer 2987.82 H POC ABG pH 7.451 H POC ABG pCO2 POC ABG pO2 ABG pO2 ABG HCO3 ABG Base Excess ABG Hemoglobin Oxyhemoglobin Sodium Potassium Chloride Carbon Dioxide BUN Creatinine Glucose POC Glucose Calcium Phosphorus Magnesium ALT Alkaline Phosphatase Total Creatine Kinase CK-MB (CK-2) Rel Index 5.7 H Troponin T 0.193 H* Albumin LDL Cholesterol Direct PTH Intact Salicylates Acetaminophen Crossmatch 02/22/19 02/22/19 02/23/19 10:36 23:56 00:52 WBC RBC Hgb Hct MCV MCH MCHC RDW Plt Count Lymph % (Auto) Mckean % (Auto) Eos % (Auto) Lymph # Mckean # Eos # Seg Neutrophils % Seg Neuts % (Manual) Lymphocytes % (Manual) Eosinophils % (Manual) Seg Neutrophils # Lymphocytes # (Manual) Eosinophils # (Manual) PT INR D-Dimer POC ABG pH POC ABG pCO2 POC ABG pO2 ABG pO2 ABG HCO3 ABG Base Excess ABG Hemoglobin Oxyhemoglobin Sodium Potassium 3.1 L Chloride Carbon Dioxide BUN Creatinine Glucose POC Glucose 58 L 111 H Calcium Phosphorus Magnesium ALT Alkaline Phosphatase Total Creatine Kinase CK-MB (CK-2) Rel Index Troponin T Albumin LDL Cholesterol Direct PTH Intact Salicylates Acetaminophen Crossmatch 02/23/19 02/23/19 02/23/19 05:00 06:35 14:26 WBC RBC Hgb Hct MCV MCH MCHC RDW Plt Count Lymph % (Auto) Mckean % (Auto) Eos % (Auto) Lymph # Mckean # Eos # Seg Neutrophils % Seg Neuts % (Manual) Lymphocytes % (Manual) Eosinophils % (Manual) Seg Neutrophils # Lymphocytes # (Manual) Eosinophils # (Manual) PT INR D-Dimer POC ABG pH POC ABG pCO2 POC ABG pO2 ABG pO2 ABG HCO3 ABG Base Excess ABG Hemoglobin Oxyhemoglobin Sodium 135 L Potassium 3.1 L Chloride Carbon Dioxide BUN 21 H Creatinine 2.0 H Glucose 57 L POC Glucose 64 L 62 L Calcium Phosphorus Magnesium ALT Alkaline Phosphatase Total Creatine Kinase CK-MB (CK-2) Rel Index Troponin T Albumin LDL Cholesterol Direct PTH Intact Salicylates Acetaminophen Crossmatch 02/24/19 02/24/19 02/24/19 02:11 04:12 04:55 WBC RBC 2.84 L Hgb 7.8 L Hct 24.5 L MCV MCH MCHC RDW 19.5 H Plt Count Lymph % (Auto) Mckean % (Auto) Eos % (Auto) Lymph # Mckean # Eos # Seg Neutrophils % Seg Neuts % (Manual) Lymphocytes % (Manual) Eosinophils % (Manual) Seg Neutrophils # Lymphocytes # (Manual) Eosinophils # (Manual) PT INR D-Dimer POC ABG pH 7.511 H POC ABG pCO2 33.9 L POC ABG pO2 62 L ABG pO2 ABG HCO3 ABG Base Excess ABG Hemoglobin Oxyhemoglobin Sodium Potassium Chloride Carbon Dioxide BUN Creatinine Glucose POC Glucose 69 L Calcium Phosphorus Magnesium ALT Alkaline Phosphatase Total Creatine Kinase CK-MB (CK-2) Rel Index Troponin T Albumin LDL Cholesterol Direct PTH Intact Salicylates Acetaminophen Crossmatch 02/24/19 02/24/19 02/25/19 04:55 05:41 04:45 WBC RBC Hgb Hct MCV MCH MCHC RDW Plt Count Lymph % (Auto) Mckean % (Auto) Eos % (Auto) Lymph # Mckean # Eos # Seg Neutrophils % Seg Neuts % (Manual) Lymphocytes % (Manual) Eosinophils % (Manual) Seg Neutrophils # Lymphocytes # (Manual) Eosinophils # (Manual) PT INR D-Dimer POC ABG pH 7.466 H POC ABG pCO2 POC ABG pO2 75 L ABG pO2 ABG HCO3 ABG Base Excess ABG Hemoglobin Oxyhemoglobin Sodium Potassium Chloride Carbon Dioxide BUN Creatinine 1.8 H Glucose 73 L POC Glucose 127 H Calcium Phosphorus Magnesium ALT Alkaline Phosphatase Total Creatine Kinase CK-MB (CK-2) Rel Index Troponin T Albumin LDL Cholesterol Direct PTH Intact Salicylates Acetaminophen Crossmatch 02/25/19 02/25/19 02/26/19 16:34 21:33 03:45 WBC RBC 2.96 L Hgb 8.0 L Hct 25.8 L MCV MCH 27 L MCHC 31 L RDW 20.0 H Plt Count Lymph % (Auto) Mckean % (Auto) Eos % (Auto) Lymph # Mckean # Eos # Seg Neutrophils % Seg Neuts % (Manual) Lymphocytes % (Manual) Eosinophils % (Manual) Seg Neutrophils # Lymphocytes # (Manual) Eosinophils # (Manual) PT INR D-Dimer POC ABG pH POC ABG pCO2 POC ABG pO2 ABG pO2 ABG HCO3 ABG Base Excess ABG Hemoglobin Oxyhemoglobin Sodium Potassium Chloride Carbon Dioxide BUN Creatinine Glucose POC Glucose 141 H 106 H Calcium Phosphorus Magnesium ALT Alkaline Phosphatase Total Creatine Kinase CK-MB (CK-2) Rel Index Troponin T Albumin LDL Cholesterol Direct PTH Intact Salicylates Acetaminophen Crossmatch 02/26/19 02/26/19 02/26/19 03:45 04:13 07:53 WBC RBC Hgb Hct MCV MCH MCHC RDW Plt Count Lymph % (Auto) Mckean % (Auto) Eos % (Auto) Lymph # Mckean # Eos # Seg Neutrophils % Seg Neuts % (Manual) Lymphocytes % (Manual) Eosinophils % (Manual) Seg Neutrophils # Lymphocytes # (Manual) Eosinophils # (Manual) PT INR D-Dimer POC ABG pH 7.470 H POC ABG pCO2 POC ABG pO2 ABG pO2 ABG HCO3 ABG Base Excess ABG Hemoglobin Oxyhemoglobin Sodium Potassium Chloride Carbon Dioxide BUN Creatinine 1.8 H Glucose POC Glucose 110 H Calcium Phosphorus Magnesium ALT Alkaline Phosphatase Total Creatine Kinase CK-MB (CK-2) Rel Index Troponin T Albumin LDL Cholesterol Direct PTH Intact Salicylates Acetaminophen Crossmatch 02/26/19 02/26/19 02/27/19 11:56 17:43 00:12 WBC RBC Hgb Hct MCV MCH MCHC RDW Plt Count Lymph % (Auto) Mckean % (Auto) Eos % (Auto) Lymph # Mckean # Eos # Seg Neutrophils % Seg Neuts % (Manual) Lymphocytes % (Manual) Eosinophils % (Manual) Seg Neutrophils # Lymphocytes # (Manual) Eosinophils # (Manual) PT INR D-Dimer POC ABG pH POC ABG pCO2 POC ABG pO2 ABG pO2 ABG HCO3 ABG Base Excess ABG Hemoglobin Oxyhemoglobin Sodium Potassium Chloride Carbon Dioxide BUN Creatinine Glucose POC Glucose 112 H 127 H 127 H Calcium Phosphorus Magnesium ALT Alkaline Phosphatase Total Creatine Kinase CK-MB (CK-2) Rel Index Troponin T Albumin LDL Cholesterol Direct PTH Intact Salicylates Acetaminophen Crossmatch 02/27/19 02/27/19 02/27/19 04:35 13:15 18:02 WBC RBC Hgb Hct MCV MCH MCHC RDW Plt Count Lymph % (Auto) Mckean % (Auto) Eos % (Auto) Lymph # Mckean # Eos # Seg Neutrophils % Seg Neuts % (Manual) Lymphocytes % (Manual) Eosinophils % (Manual) Seg Neutrophils # Lymphocytes # (Manual) Eosinophils # (Manual) PT INR D-Dimer POC ABG pH 7.483 H POC ABG pCO2 POC ABG pO2 61 L ABG pO2 ABG HCO3 ABG Base Excess ABG Hemoglobin Oxyhemoglobin Sodium Potassium Chloride Carbon Dioxide BUN Creatinine Glucose POC Glucose 143 H 106 H Calcium Phosphorus Magnesium ALT Alkaline Phosphatase Total Creatine Kinase CK-MB (CK-2) Rel Index Troponin T Albumin LDL Cholesterol Direct PTH Intact Salicylates Acetaminophen Crossmatch 02/28/19 02/28/19 02/28/19 05:50 11:59 17:52 WBC RBC Hgb Hct MCV MCH MCHC RDW Plt Count Lymph % (Auto) Mckean % (Auto) Eos % (Auto) Lymph # Mckean # Eos # Seg Neutrophils % Seg Neuts % (Manual) Lymphocytes % (Manual) Eosinophils % (Manual) Seg Neutrophils # Lymphocytes # (Manual) Eosinophils # (Manual) PT INR D-Dimer POC ABG pH POC ABG pCO2 POC ABG pO2 ABG pO2 ABG HCO3 ABG Base Excess ABG Hemoglobin Oxyhemoglobin Sodium Potassium Chloride Carbon Dioxide BUN Creatinine Glucose POC Glucose 134 H 128 H 142 H Calcium Phosphorus Magnesium ALT Alkaline Phosphatase Total Creatine Kinase CK-MB (CK-2) Rel Index Troponin T Albumin LDL Cholesterol Direct PTH Intact Salicylates Acetaminophen Crossmatch 02/28/19 03/01/19 03/01/19 23:13 05:40 09:39 WBC RBC Hgb Hct MCV MCH MCHC RDW Plt Count Lymph % (Auto) Mckean % (Auto) Eos % (Auto) Lymph # Mckean # Eos # Seg Neutrophils % Seg Neuts % (Manual) Lymphocytes % (Manual) Eosinophils % (Manual) Seg Neutrophils # Lymphocytes # (Manual) Eosinophils # (Manual) PT 16.3 H INR 1.35 H D-Dimer POC ABG pH POC ABG pCO2 POC ABG pO2 ABG pO2 ABG HCO3 ABG Base Excess ABG Hemoglobin Oxyhemoglobin Sodium Potassium Chloride Carbon Dioxide BUN Creatinine Glucose POC Glucose 112 H 111 H Calcium Phosphorus Magnesium ALT Alkaline Phosphatase Total Creatine Kinase CK-MB (CK-2) Rel Index Troponin T Albumin LDL Cholesterol Direct PTH Intact Salicylates Acetaminophen Crossmatch 03/01/19 03/01/19 03/01/19 11:56 13:54 17:59 WBC RBC Hgb Hct MCV MCH MCHC RDW Plt Count Lymph % (Auto) Mckean % (Auto) Eos % (Auto) Lymph # Mckean # Eos # Seg Neutrophils % Seg Neuts % (Manual) Lymphocytes % (Manual) Eosinophils % (Manual) Seg Neutrophils # Lymphocytes # (Manual) Eosinophils # (Manual) PT INR D-Dimer POC ABG pH POC ABG pCO2 POC ABG pO2 ABG pO2 ABG HCO3 ABG Base Excess ABG Hemoglobin Oxyhemoglobin Sodium Potassium Chloride Carbon Dioxide BUN 33 H Creatinine 2.8 H D Glucose 176 H POC Glucose 199 H 147 H Calcium Phosphorus Magnesium ALT Alkaline Phosphatase Total Creatine Kinase CK-MB (CK-2) Rel Index Troponin T Albumin LDL Cholesterol Direct PTH Intact Salicylates Acetaminophen Crossmatch 03/02/19 03/02/19 03/02/19 05:15 05:15 05:15 WBC RBC 2.73 L Hgb 7.4 L Hct 23.0 L MCV MCH 27 L MCHC RDW 19.9 H Plt Count Lymph % (Auto) Mckean % (Auto) 7.9 H Eos % (Auto) 7.6 H Lymph # 1.0 L Mckean # Eos # 0.5 H Seg Neutrophils % Seg Neuts % (Manual) Lymphocytes % (Manual) Eosinophils % (Manual) Seg Neutrophils # Lymphocytes # (Manual) Eosinophils # (Manual) PT INR D-Dimer POC ABG pH POC ABG pCO2 POC ABG pO2 ABG pO2 ABG HCO3 ABG Base Excess ABG Hemoglobin Oxyhemoglobin Sodium Potassium Chloride Carbon Dioxide BUN 43 H Creatinine 3.2 H Glucose POC Glucose Calcium Phosphorus 2.30 L Magnesium ALT Alkaline Phosphatase Total Creatine Kinase CK-MB (CK-2) Rel Index Troponin T Albumin LDL Cholesterol Direct PTH Intact 267.6 H Salicylates Acetaminophen Crossmatch 03/02/19 03/02/19 03/03/19 12:32 18:20 13:30 WBC RBC Hgb Hct MCV MCH MCHC RDW Plt Count Lymph % (Auto) Mckean % (Auto) Eos % (Auto) Lymph # Mckean # Eos # Seg Neutrophils % Seg Neuts % (Manual) Lymphocytes % (Manual) Eosinophils % (Manual) Seg Neutrophils # Lymphocytes # (Manual) Eosinophils # (Manual) PT INR D-Dimer POC ABG pH POC ABG pCO2 POC ABG pO2 ABG pO2 ABG HCO3 ABG Base Excess ABG Hemoglobin Oxyhemoglobin Sodium Potassium Chloride 97.3 L Carbon Dioxide BUN 26 H Creatinine 2.2 H Glucose 73 L POC Glucose 111 H 156 H Calcium Phosphorus Magnesium ALT Alkaline Phosphatase Total Creatine Kinase CK-MB (CK-2) Rel Index Troponin T Albumin LDL Cholesterol Direct PTH Intact Salicylates Acetaminophen Crossmatch 03/04/19 03/04/19 03/04/19 00:02 05:37 05:40 WBC RBC 2.63 L Hgb 7.2 L Hct 22.2 L MCV MCH MCHC RDW 20.2 H Plt Count Lymph % (Auto) 10.5 L Mckean % (Auto) Eos % (Auto) 4.6 H Lymph # 0.7 L Mckean # Eos # Seg Neutrophils % 76.9 H Seg Neuts % (Manual) Lymphocytes % (Manual) Eosinophils % (Manual) Seg Neutrophils # Lymphocytes # (Manual) Eosinophils # (Manual) PT INR D-Dimer POC ABG pH POC ABG pCO2 POC ABG pO2 ABG pO2 ABG HCO3 ABG Base Excess ABG Hemoglobin Oxyhemoglobin Sodium Potassium Chloride Carbon Dioxide BUN Creatinine Glucose POC Glucose 136 H 123 H Calcium Phosphorus Magnesium ALT Alkaline Phosphatase Total Creatine Kinase CK-MB (CK-2) Rel Index Troponin T Albumin LDL Cholesterol Direct PTH Intact Salicylates Acetaminophen Crossmatch 03/04/19 03/04/19 03/04/19 05:40 11:39 23:20 WBC RBC Hgb Hct MCV MCH MCHC RDW Plt Count Lymph % (Auto) Mckean % (Auto) Eos % (Auto) Lymph # Mckean # Eos # Seg Neutrophils % Seg Neuts % (Manual) Lymphocytes % (Manual) Eosinophils % (Manual) Seg Neutrophils # Lymphocytes # (Manual) Eosinophils # (Manual) PT INR D-Dimer POC ABG pH POC ABG pCO2 POC ABG pO2 ABG pO2 ABG HCO3 ABG Base Excess ABG Hemoglobin Oxyhemoglobin Sodium Potassium Chloride Carbon Dioxide BUN 34 H Creatinine 2.7 H Glucose 114 H POC Glucose 175 H 151 H Calcium Phosphorus Magnesium ALT Alkaline Phosphatase Total Creatine Kinase CK-MB (CK-2) Rel Index Troponin T Albumin LDL Cholesterol Direct PTH Intact Salicylates Acetaminophen Crossmatch 03/05/19 03/05/19 03/05/19 05:37 12:08 17:11 WBC RBC Hgb Hct MCV MCH MCHC RDW Plt Count Lymph % (Auto) Mckean % (Auto) Eos % (Auto) Lymph # Mckean # Eos # Seg Neutrophils % Seg Neuts % (Manual) Lymphocytes % (Manual) Eosinophils % (Manual) Seg Neutrophils # Lymphocytes # (Manual) Eosinophils # (Manual) PT INR D-Dimer POC ABG pH POC ABG pCO2 POC ABG pO2 ABG pO2 ABG HCO3 ABG Base Excess ABG Hemoglobin Oxyhemoglobin Sodium Potassium Chloride Carbon Dioxide BUN Creatinine Glucose POC Glucose 134 H 135 H 135 H Calcium Phosphorus Magnesium ALT Alkaline Phosphatase Total Creatine Kinase CK-MB (CK-2) Rel Index Troponin T Albumin LDL Cholesterol Direct PTH Intact Salicylates Acetaminophen Crossmatch 03/06/19 03/06/19 03/06/19 00:16 13:05 18:09 WBC RBC Hgb Hct MCV MCH MCHC RDW Plt Count Lymph % (Auto) Mckean % (Auto) Eos % (Auto) Lymph # Mckean # Eos # Seg Neutrophils % Seg Neuts % (Manual) Lymphocytes % (Manual) Eosinophils % (Manual) Seg Neutrophils # Lymphocytes # (Manual) Eosinophils # (Manual) PT INR D-Dimer POC ABG pH POC ABG pCO2 POC ABG pO2 ABG pO2 ABG HCO3 ABG Base Excess ABG Hemoglobin Oxyhemoglobin Sodium Potassium Chloride Carbon Dioxide BUN Creatinine Glucose POC Glucose 117 H 113 H 131 H Calcium Phosphorus Magnesium ALT Alkaline Phosphatase Total Creatine Kinase CK-MB (CK-2) Rel Index Troponin T Albumin LDL Cholesterol Direct PTH Intact Salicylates Acetaminophen Crossmatch 03/07/19 03/08/19 03/08/19 05:25 05:33 16:00 WBC RBC 2.44 L Hgb 6.6 L Hct 20.8 L MCV MCH 27 L MCHC RDW 19.2 H Plt Count Lymph % (Auto) Mckean % (Auto) Eos % (Auto) 8.6 H Lymph # 0.8 L Mckean # Eos # 0.5 H Seg Neutrophils % 70.7 H Seg Neuts % (Manual) Lymphocytes % (Manual) Eosinophils % (Manual) Seg Neutrophils # Lymphocytes # (Manual) Eosinophils # (Manual) PT INR D-Dimer POC ABG pH POC ABG pCO2 POC ABG pO2 ABG pO2 ABG HCO3 ABG Base Excess ABG Hemoglobin Oxyhemoglobin Sodium Potassium Chloride Carbon Dioxide BUN Creatinine Glucose POC Glucose 106 H 108 H Calcium Phosphorus Magnesium ALT Alkaline Phosphatase Total Creatine Kinase CK-MB (CK-2) Rel Index Troponin T Albumin LDL Cholesterol Direct PTH Intact Salicylates Acetaminophen Crossmatch 03/08/19 03/08/19 03/08/19 16:00 18:38 Unknown WBC RBC Hgb Hct MCV MCH MCHC RDW Plt Count Lymph % (Auto) Mckean % (Auto) Eos % (Auto) Lymph # Mckean # Eos # Seg Neutrophils % Seg Neuts % (Manual) Lymphocytes % (Manual) Eosinophils % (Manual) Seg Neutrophils # Lymphocytes # (Manual) Eosinophils # (Manual) PT INR D-Dimer POC ABG pH POC ABG pCO2 POC ABG pO2 ABG pO2 ABG HCO3 ABG Base Excess ABG Hemoglobin Oxyhemoglobin Sodium Potassium 5.4 H D Chloride Carbon Dioxide BUN 47 H Creatinine 2.6 H Glucose POC Glucose 123 H Calcium Phosphorus Magnesium ALT < 5 L Alkaline Phosphatase Total Creatine Kinase CK-MB (CK-2) Rel Index Troponin T Albumin 2.2 L LDL Cholesterol Direct PTH Intact Salicylates Acetaminophen Crossmatch See Detail 03/09/19 03/09/19 03/09/19 10:48 12:28 13:53 WBC RBC 2.85 L Hgb 7.7 L Hct 24.2 L MCV MCH 27 L MCHC RDW 18.7 H Plt Count Lymph % (Auto) Mckean % (Auto) Eos % (Auto) Lymph # Mckean # Eos # Seg Neutrophils % Seg Neuts % (Manual) Lymphocytes % (Manual) Eosinophils % (Manual) Seg Neutrophils # Lymphocytes # (Manual) Eosinophils # (Manual) PT INR D-Dimer POC ABG pH POC ABG pCO2 POC ABG pO2 ABG pO2 ABG HCO3 30.5 H ABG Base Excess 5.6 H ABG Hemoglobin 8.1 L Oxyhemoglobin 93.8 L Sodium Potassium Chloride Carbon Dioxide BUN Creatinine Glucose POC Glucose 114 H Calcium Phosphorus Magnesium ALT Alkaline Phosphatase Total Creatine Kinase CK-MB (CK-2) Rel Index Troponin T Albumin LDL Cholesterol Direct PTH Intact Salicylates Acetaminophen Crossmatch 03/09/19 03/09/19 03/10/19 17:58 23:53 12:01 WBC RBC Hgb Hct MCV MCH MCHC RDW Plt Count Lymph % (Auto) Mckean % (Auto) Eos % (Auto) Lymph # Mckean # Eos # Seg Neutrophils % Seg Neuts % (Manual) Lymphocytes % (Manual) Eosinophils % (Manual) Seg Neutrophils # Lymphocytes # (Manual) Eosinophils # (Manual) PT INR D-Dimer POC ABG pH POC ABG pCO2 POC ABG pO2 ABG pO2 ABG HCO3 ABG Base Excess ABG Hemoglobin Oxyhemoglobin Sodium Potassium Chloride Carbon Dioxide BUN Creatinine Glucose POC Glucose 108 H 128 H 144 H Calcium Phosphorus Magnesium ALT Alkaline Phosphatase Total Creatine Kinase CK-MB (CK-2) Rel Index Troponin T Albumin LDL Cholesterol Direct PTH Intact Salicylates Acetaminophen Crossmatch 03/10/19 03/11/19 03/11/19 16:50 00:24 05:02 WBC RBC Hgb Hct MCV MCH MCHC RDW Plt Count Lymph % (Auto) Mckean % (Auto) Eos % (Auto) Lymph # Mckean # Eos # Seg Neutrophils % Seg Neuts % (Manual) Lymphocytes % (Manual) Eosinophils % (Manual) Seg Neutrophils # Lymphocytes # (Manual) Eosinophils # (Manual) PT INR D-Dimer POC ABG pH POC ABG pCO2 POC ABG pO2 ABG pO2 ABG HCO3 ABG Base Excess ABG Hemoglobin Oxyhemoglobin Sodium Potassium Chloride Carbon Dioxide BUN Creatinine Glucose POC Glucose 147 H 123 H 120 H Calcium Phosphorus Magnesium ALT Alkaline Phosphatase Total Creatine Kinase CK-MB (CK-2) Rel Index Troponin T Albumin LDL Cholesterol Direct PTH Intact Salicylates Acetaminophen Crossmatch 03/11/19 03/11/19 03/11/19 11:56 12:20 18:37 WBC RBC Hgb Hct MCV MCH MCHC RDW Plt Count Lymph % (Auto) Mckean % (Auto) Eos % (Auto) Lymph # Mckean # Eos # Seg Neutrophils % Seg Neuts % (Manual) Lymphocytes % (Manual) Eosinophils % (Manual) Seg Neutrophils # Lymphocytes # (Manual) Eosinophils # (Manual) PT INR D-Dimer POC ABG pH POC ABG pCO2 POC ABG pO2 ABG pO2 ABG HCO3 ABG Base Excess ABG Hemoglobin Oxyhemoglobin Sodium Potassium 5.2 H Chloride Carbon Dioxide BUN Creatinine Glucose POC Glucose 123 H 125 H Calcium Phosphorus Magnesium ALT Alkaline Phosphatase Total Creatine Kinase CK-MB (CK-2) Rel Index Troponin T Albumin LDL Cholesterol Direct PTH Intact Salicylates Acetaminophen Crossmatch 03/11/19 03/12/19 03/12/19 22:52 12:04 18:25 WBC RBC Hgb Hct MCV MCH MCHC RDW Plt Count Lymph % (Auto) [place] % (Auto) Eos % (Auto) Lymph # Mckean # Eos # Seg Neutrophils % Seg Neuts % (Manual) Lymphocytes % (Manual) Eosinophils % (Manual) Seg Neutrophils # Lymphocytes # (Manual) Eosinophils # (Manual) PT INR D-Dimer POC ABG pH POC ABG pCO2 POC ABG pO2 ABG pO2 ABG HCO3 ABG Base Excess ABG Hemoglobin Oxyhemoglobin Sodium Potassium Chloride Carbon Dioxide BUN Creatinine Glucose POC Glucose 110 H 106 H 118 H Calcium Phosphorus Magnesium ALT Alkaline Phosphatase Total Creatine Kinase CK-MB (CK-2) Rel Index Troponin T Albumin LDL Cholesterol Direct PTH Intact Salicylates Acetaminophen Crossmatch 03/12/19 03/13/19 03/13/19 23:36 04:38 04:38 WBC RBC 2.95 L Hgb 7.9 L Hct 24.9 L MCV MCH 27 L MCHC RDW 19.9 H Plt Count Lymph % (Auto) 11.1 L [place] % (Auto) 8.1 H Eos % (Auto) 4.4 H Lymph # 0.9 L Mckean # Eos # Seg Neutrophils % 75.4 H Seg Neuts % (Manual) Lymphocytes % (Manual) Eosinophils % (Manual) Seg Neutrophils # Lymphocytes # (Manual) Eosinophils # (Manual) PT INR D-Dimer POC ABG pH POC ABG pCO2 POC ABG pO2 ABG pO2 ABG HCO3 ABG Base Excess ABG Hemoglobin Oxyhemoglobin Sodium 136 L Potassium 5.1 H Chloride 93.8 L Carbon Dioxide BUN 48 H Creatinine 2.7 H Glucose 102 H POC Glucose 115 H Calcium Phosphorus Magnesium ALT < 5 L Alkaline Phosphatase 143 H Total Creatine Kinase CK-MB (CK-2) Rel Index Troponin T Albumin 2.5 L LDL Cholesterol Direct PTH Intact Salicylates Acetaminophen Crossmatch 03/13/19 03/13/19 03/13/19 05:33 13:37 18:03 WBC RBC Hgb Hct MCV MCH MCHC RDW Plt Count Lymph % (Auto) [place] % (Auto) Eos % (Auto) Lymph # [place] # Eos # Seg Neutrophils % Seg Neuts % (Manual) Lymphocytes % (Manual) Eosinophils % (Manual) Seg Neutrophils # Lymphocytes # (Manual) Eosinophils # (Manual) PT INR D-Dimer POC ABG pH POC ABG pCO2 POC ABG pO2 ABG pO2 ABG HCO3 ABG Base Excess ABG Hemoglobin Oxyhemoglobin Sodium Potassium Chloride Carbon Dioxide BUN Creatinine Glucose POC Glucose 140 H 150 H 158 H Calcium Phosphorus Magnesium ALT Alkaline Phosphatase Total Creatine Kinase CK-MB (CK-2) Rel Index Troponin T Albumin LDL Cholesterol Direct PTH Intact Salicylates Acetaminophen Crossmatch 03/13/19 03/14/19 03/14/19 23:32 05:24 12:20 WBC RBC Hgb Hct MCV MCH MCHC RDW Plt Count Lymph % (Auto) [place] % (Auto) Eos % (Auto) Lymph # [place] # Eos # Seg Neutrophils % Seg Neuts % (Manual) Lymphocytes % (Manual) Eosinophils % (Manual) Seg Neutrophils # Lymphocytes # (Manual) Eosinophils # (Manual) PT INR D-Dimer POC ABG pH POC ABG pCO2 POC ABG pO2 ABG pO2 ABG HCO3 ABG Base Excess ABG Hemoglobin Oxyhemoglobin Sodium Potassium Chloride Carbon Dioxide BUN Creatinine Glucose POC Glucose 162 H 146 H 127 H Calcium Phosphorus Magnesium ALT Alkaline Phosphatase Total Creatine Kinase CK-MB (CK-2) Rel Index Troponin T Albumin LDL Cholesterol Direct PTH Intact Salicylates Acetaminophen Crossmatch 03/14/19 03/14/19 03/15/19 18:05 23:57 04:38 WBC 12.8 H RBC 3.11 L Hgb 8.1 L Hct 26.5 L MCV MCH 26 L MCHC 31 L RDW 19.7 H Plt Count Lymph % (Auto) 4.4 L [place]ke[place] % (Auto) 7.4 H Eos % (Auto) Lymph # 0.6 L Mckean # 0.9 H Eos # Seg Neutrophils % 87.3 H Seg Neuts % (Manual) Lymphocytes % (Manual) Eosinophils % (Manual) Seg Neutrophils # 11.2 H Lymphocytes # (Manual) Eosinophils # (Manual) PT INR D-Dimer POC ABG pH POC ABG pCO2 POC ABG pO2 ABG pO2 ABG HCO3 ABG Base Excess ABG Hemoglobin Oxyhemoglobin Sodium Potassium Chloride Carbon Dioxide BUN Creatinine Glucose POC Glucose 142 H 155 H Calcium Phosphorus Magnesium ALT Alkaline Phosphatase Total Creatine Kinase CK-MB (CK-2) Rel Index Troponin T Albumin LDL Cholesterol Direct PTH Intact Salicylates Acetaminophen Crossmatch 03/15/19 03/15/19 03/15/19 04:38 05:31 11:32 WBC RBC Hgb Hct MCV MCH MCHC RDW Plt Count Lymph % (Auto) [place] % (Auto) Eos % (Auto) Lymph # [place] # Eos # Seg Neutrophils % Seg Neuts % (Manual) Lymphocytes % (Manual) Eosinophils % (Manual) Seg Neutrophils # Lymphocytes # (Manual) Eosinophils # (Manual) PT INR D-Dimer POC ABG pH POC ABG pCO2 POC ABG pO2 ABG pO2 ABG HCO3 ABG Base Excess ABG Hemoglobin Oxyhemoglobin Sodium 135 L Potassium Chloride 91.9 L Carbon Dioxide BUN 54 H Creatinine 2.8 H Glucose 128 H POC Glucose 160 H 109 H Calcium 11.1 H Phosphorus Magnesium ALT Alkaline Phosphatase 161 H Total Creatine Kinase CK-MB (CK-2) Rel Index Troponin T Albumin 2.3 L LDL Cholesterol Direct PTH Intact Salicylates Acetaminophen Crossmatch 03/15/19 03/15/19 03/16/19 18:15 23:41 05:40 WBC RBC Hgb Hct MCV MCH MCHC RDW Plt Count Lymph % (Auto) [place] % (Auto) Eos % (Auto) Lymph # [place] # Eos # Seg Neutrophils % Seg Neuts % (Manual) Lymphocytes % (Manual) Eosinophils % (Manual) Seg Neutrophils # Lymphocytes # (Manual) Eosinophils # (Manual) PT INR D-Dimer POC ABG pH POC ABG pCO2 POC ABG pO2 ABG pO2 ABG HCO3 ABG Base Excess ABG Hemoglobin Oxyhemoglobin Sodium Potassium Chloride Carbon Dioxide BUN Creatinine Glucose POC Glucose 151 H 110 H 163 H Calcium Phosphorus Magnesium ALT Alkaline Phosphatase Total Creatine Kinase CK-MB (CK-2) Rel Index Troponin T Albumin LDL Cholesterol Direct PTH Intact Salicylates Acetaminophen Crossmatch 03/16/19 03/16/19 03/16/19 11:55 17:04 23:58 WBC RBC Hgb Hct MCV MCH MCHC RDW Plt Count Lymph % (Auto) [place] % (Auto) Eos % (Auto) Lymph # [place] # Eos # Seg Neutrophils % Seg Neuts % (Manual) Lymphocytes % (Manual) Eosinophils % (Manual) Seg Neutrophils # Lymphocytes # (Manual) Eosinophils # (Manual) PT INR D-Dimer POC ABG pH POC ABG pCO2 POC ABG pO2 ABG pO2 ABG HCO3 ABG Base Excess ABG Hemoglobin Oxyhemoglobin Sodium Potassium Chloride Carbon Dioxide BUN Creatinine Glucose POC Glucose 114 H 147 H 192 H Calcium Phosphorus Magnesium ALT Alkaline Phosphatase Total Creatine Kinase CK-MB (CK-2) Rel Index Troponin T Albumin LDL Cholesterol Direct PTH Intact Salicylates Acetaminophen Crossmatch 03/17/19 03/17/19 03/17/19 05:53 11:17 17:01 WBC RBC Hgb Hct MCV MCH MCHC RDW Plt Count Lymph % (Auto) [place] % (Auto) Eos % (Auto) Lymph # [place] # Eos # Seg Neutrophils % Seg Neuts % (Manual) Lymphocytes % (Manual) Eosinophils % (Manual) Seg Neutrophils # Lymphocytes # (Manual) Eosinophils # (Manual) PT INR D-Dimer POC ABG pH POC ABG pCO2 POC ABG pO2 ABG pO2 ABG HCO3 ABG Base Excess ABG Hemoglobin Oxyhemoglobin Sodium Potassium Chloride Carbon Dioxide BUN Creatinine Glucose POC Glucose 151 H 161 H 152 H Calcium Phosphorus Magnesium ALT Alkaline Phosphatase Total Creatine Kinase CK-MB (CK-2) Rel Index Troponin T Albumin LDL Cholesterol Direct PTH Intact Salicylates Acetaminophen Crossmatch 03/17/19 03/18/19 03/18/19 21:47 04:15 04:44 WBC RBC Hgb Hct MCV MCH MCHC RDW Plt Count Lymph % (Auto) [place] % (Auto) Eos % (Auto) Lymph # [place] # Eos # Seg Neutrophils % Seg Neuts % (Manual) Lymphocytes % (Manual) Eosinophils % (Manual) Seg Neutrophils # Lymphocytes # (Manual) Eosinophils # (Manual) PT INR D-Dimer POC ABG pH POC ABG pCO2 POC ABG pO2 ABG pO2 102.8 H ABG HCO3 28.3 H ABG Base Excess ABG Hemoglobin 10.4 L Oxyhemoglobin 94.5 L Sodium Potassium Chloride Carbon Dioxide BUN Creatinine Glucose POC Glucose 170 H 150 H Calcium Phosphorus Magnesium ALT Alkaline Phosphatase Total Creatine Kinase CK-MB (CK-2) Rel Index Troponin T Albumin LDL Cholesterol Direct PTH Intact Salicylates Acetaminophen Crossmatch 03/18/19 03/18/19 03/18/19 06:38 12:12 17:47 WBC RBC Hgb Hct MCV MCH MCHC RDW Plt Count Lymph % (Auto) [place] % (Auto) Eos % (Auto) Lymph # [place] # Eos # Seg Neutrophils % Seg Neuts % (Manual) Lymphocytes % (Manual) Eosinophils % (Manual) Seg Neutrophils # Lymphocytes # (Manual) Eosinophils # (Manual) PT INR D-Dimer POC ABG pH 7.510 H POC ABG pCO2 POC ABG pO2 164 H ABG pO2 ABG HCO3 ABG Base Excess ABG Hemoglobin Oxyhemoglobin Sodium Potassium Chloride Carbon Dioxide BUN Creatinine Glucose POC Glucose 145 H 149 H Calcium Phosphorus Magnesium ALT Alkaline Phosphatase Total Creatine Kinase CK-MB (CK-2) Rel Index Troponin T Albumin LDL Cholesterol Direct PTH Intact Salicylates Acetaminophen Crossmatch 03/18/19 03/19/19 03/19/19 23:25 01:11 04:23 WBC 15.6 H RBC 2.51 L Hgb 6.5 L Hct 21.6 L MCV MCH 26 L MCHC 30 L RDW 19.8 H Plt Count Lymph % (Auto) 6.0 L [place] % (Auto) Eos % (Auto) Lymph # 0.9 L [place] # 1.0 H Eos # Seg Neutrophils % 85.5 H Seg Neuts % (Manual) Lymphocytes % (Manual) Eosinophils % (Manual) Seg Neutrophils # 13.4 H Lymphocytes # (Manual) Eosinophils # (Manual) PT INR D-Dimer POC ABG pH POC ABG pCO2 POC ABG pO2 ABG pO2 78.3 L ABG HCO3 30.7 H ABG Base Excess 5.8 H ABG Hemoglobin 5.8 L Oxyhemoglobin 94.6 L Sodium Potassium Chloride Carbon Dioxide BUN Creatinine Glucose POC Glucose 190 H Calcium Phosphorus Magnesium ALT Alkaline Phosphatase Total Creatine Kinase CK-MB (CK-2) Rel Index Troponin T Albumin LDL Cholesterol Direct PTH Intact Salicylates Acetaminophen Crossmatch 03/19/19 03/19/19 03/19/19 05:22 05:35 08:54 WBC RBC Hgb Hct MCV MCH MCHC RDW Plt Count Lymph % (Auto) [place] % (Auto) Eos % (Auto) Lymph # [place] # Eos # Seg Neutrophils % Seg Neuts % (Manual) Lymphocytes % (Manual) Eosinophils % (Manual) Seg Neutrophils # Lymphocytes # (Manual) Eosinophils # (Manual) PT INR D-Dimer POC ABG pH POC ABG pCO2 POC ABG pO2 ABG pO2 ABG HCO3 ABG Base Excess ABG Hemoglobin Oxyhemoglobin Sodium Potassium Chloride Carbon Dioxide BUN Creatinine Glucose POC Glucose 167 H Calcium Phosphorus Magnesium ALT Alkaline Phosphatase Total Creatine Kinase CK-MB (CK-2) Rel Index Troponin T Albumin LDL Cholesterol Direct PTH Intact Salicylates Acetaminophen Crossmatch See Detail See Detail 03/19/19 03/19/19 03/19/19 12:36 17:02 23:25 WBC RBC Hgb Hct MCV MCH MCHC RDW Plt Count Lymph % (Auto) [place] % (Auto) Eos % (Auto) Lymph # [place] # Eos # Seg Neutrophils % Seg Neuts % (Manual) Lymphocytes % (Manual) Eosinophils % (Manual) Seg Neutrophils # Lymphocytes # (Manual) Eosinophils # (Manual) PT INR D-Dimer POC ABG pH POC ABG pCO2 POC ABG pO2 ABG pO2 ABG HCO3 ABG Base Excess ABG Hemoglobin Oxyhemoglobin Sodium Potassium Chloride Carbon Dioxide BUN Creatinine Glucose POC Glucose 167 H 135 H 136 H Calcium Phosphorus Magnesium ALT Alkaline Phosphatase Total Creatine Kinase CK-MB (CK-2) Rel Index Troponin T Albumin LDL Cholesterol Direct PTH Intact Salicylates Acetaminophen Crossmatch 03/20/19 03/20/19 03/20/19 05:38 08:40 08:40 WBC RBC 2.61 L Hgb 7.1 L Hct 22.0 L MCV MCH 27 L MCHC RDW 19.6 H Plt Count Lymph % (Auto) 8.2 L [place] % (Auto) 8.3 H Eos % (Auto) 5.7 H Lymph # 0.8 L Mckean # Eos # 0.5 H Seg Neutrophils % 77.3 H Seg Neuts % (Manual) Lymphocytes % (Manual) Eosinophils % (Manual) Seg Neutrophils # Lymphocytes # (Manual) Eosinophils # (Manual) PT INR D-Dimer POC ABG pH POC ABG pCO2 POC ABG pO2 ABG pO2 ABG HCO3 ABG Base Excess ABG Hemoglobin Oxyhemoglobin Sodium Potassium Chloride 95.9 L Carbon Dioxide BUN 69 H Creatinine 2.8 H Glucose 115 H POC Glucose 134 H Calcium 10.5 H Phosphorus Magnesium ALT Alkaline Phosphatase Total Creatine Kinase CK-MB (CK-2) Rel Index Troponin T Albumin LDL Cholesterol Direct PTH Intact Salicylates Acetaminophen Crossmatch 03/20/19 03/20/19 03/20/19 12:13 18:04 23:49 WBC RBC Hgb Hct MCV MCH MCHC RDW Plt Count Lymph % (Auto) [place] % (Auto) Eos % (Auto) Lymph # [place] # Eos # Seg Neutrophils % Seg Neuts % (Manual) Lymphocytes % (Manual) Eosinophils % (Manual) Seg Neutrophils # Lymphocytes # (Manual) Eosinophils # (Manual) PT INR D-Dimer POC ABG pH POC ABG pCO2 POC ABG pO2 ABG pO2 ABG HCO3 ABG Base Excess ABG Hemoglobin Oxyhemoglobin Sodium Potassium Chloride Carbon Dioxide BUN Creatinine Glucose POC Glucose 144 H 165 H 172 H Calcium Phosphorus Magnesium ALT Alkaline Phosphatase Total Creatine Kinase CK-MB (CK-2) Rel Index Troponin T Albumin LDL Cholesterol Direct PTH Intact Salicylates Acetaminophen Crossmatch 03/21/19 03/21/19 03/21/19 05:00 06:29 06:30 WBC RBC 2.72 L Hgb 7.4 L Hct 22.9 L MCV MCH 27 L MCHC RDW 19.4 H Plt Count Lymph % (Auto) [place] % (Auto) Eos % (Auto) Lymph # [place] # Eos # Seg Neutrophils % Seg Neuts % (Manual) 81.0 H Lymphocytes % (Manual) 8.0 L Eosinophils % (Manual) 8.0 H Seg Neutrophils # Lymphocytes # (Manual) 0.7 L Eosinophils # (Manual) 0.7 H PT INR D-Dimer POC ABG pH POC ABG pCO2 POC ABG pO2 ABG pO2 ABG HCO3 ABG Base Excess ABG Hemoglobin Oxyhemoglobin Sodium Potassium Chloride Carbon Dioxide 33 H BUN 43 H Creatinine 1.7 H Glucose 145 H POC Glucose 156 H Calcium Phosphorus Magnesium ALT Alkaline Phosphatase 212 H Total Creatine Kinase CK-MB (CK-2) Rel Index Troponin T Albumin 2.2 L LDL Cholesterol Direct PTH Intact Salicylates Acetaminophen Crossmatch 03/21/19 03/21/19 03/22/19 12:02 18:07 00:21 WBC RBC Hgb Hct MCV MCH MCHC RDW Plt Count Lymph % (Auto) [place] % (Auto) Eos % (Auto) Lymph # [place] # Eos # Seg Neutrophils % Seg Neuts % (Manual) Lymphocytes % (Manual) Eosinophils % (Manual) Seg Neutrophils # Lymphocytes # (Manual) Eosinophils # (Manual) PT INR D-Dimer POC ABG pH POC ABG pCO2 POC ABG pO2 ABG pO2 ABG HCO3 ABG Base Excess ABG Hemoglobin Oxyhemoglobin Sodium Potassium Chloride Carbon Dioxide BUN Creatinine Glucose POC Glucose 163 H 144 H 153 H Calcium Phosphorus Magnesium ALT Alkaline Phosphatase Total Creatine Kinase CK-MB (CK-2) Rel Index Troponin T Albumin LDL Cholesterol Direct PTH Intact Salicylates Acetaminophen Crossmatch 03/22/19 03/22/19 03/22/19 05:23 05:23 05:31 WBC RBC 2.58 L Hgb 7.1 L Hct 21.8 L MCV MCH 27 L MCHC RDW 19.2 H Plt Count Lymph % (Auto) [place] % (Auto) Eos % (Auto) Lymph # [place] # Eos # Seg Neutrophils % Seg Neuts % (Manual) Lymphocytes % (Manual) Eosinophils % (Manual) Seg Neutrophils # Lymphocytes # (Manual) Eosinophils # (Manual) PT INR D-Dimer POC ABG pH POC ABG pCO2 POC ABG pO2 ABG pO2 ABG HCO3 ABG Base Excess ABG Hemoglobin Oxyhemoglobin Sodium 147 H Potassium Chloride Carbon Dioxide BUN 68 H Creatinine 2.5 H Glucose POC Glucose 116 H Calcium 10.3 H Phosphorus Magnesium ALT Alkaline Phosphatase Total Creatine Kinase CK-MB (CK-2) Rel Index Troponin T Albumin LDL Cholesterol Direct PTH Intact Salicylates Acetaminophen Crossmatch 03/22/19 03/22/19 03/22/19 08:48 12:37 17:35 WBC RBC Hgb Hct MCV MCH MCHC RDW Plt Count Lymph % (Auto) [place] % (Auto) Eos % (Auto) Lymph # [place] # Eos # Seg Neutrophils % Seg Neuts % (Manual) Lymphocytes % (Manual) Eosinophils % (Manual) Seg Neutrophils # Lymphocytes # (Manual) Eosinophils # (Manual) PT INR D-Dimer POC ABG pH POC ABG pCO2 POC ABG pO2 ABG pO2 ABG HCO3 ABG Base Excess ABG Hemoglobin Oxyhemoglobin Sodium Potassium Chloride Carbon Dioxide BUN Creatinine Glucose POC Glucose 143 H 155 H Calcium Phosphorus Magnesium ALT Alkaline Phosphatase Total Creatine Kinase CK-MB (CK-2) Rel Index Troponin T Albumin LDL Cholesterol Direct PTH Intact Salicylates Acetaminophen Crossmatch See Detail 03/23/19 03/23/19 03/23/19 00:07 04:00 04:00 WBC 11.2 H RBC 2.32 L Hgb 6.4 L Hct 19.7 L* MCV MCH MCHC RDW 19.4 H Plt Count Lymph % (Auto) [place] % (Auto) Eos % (Auto) Lymph # [place] # Eos # Seg Neutrophils % Seg Neuts % (Manual) Lymphocytes % (Manual) Eosinophils % (Manual) Seg Neutrophils # Lymphocytes # (Manual) Eosinophils # (Manual) PT INR D-Dimer POC ABG pH POC ABG pCO2 POC ABG pO2 ABG pO2 ABG HCO3 ABG Base Excess ABG Hemoglobin Oxyhemoglobin Sodium 147 H Potassium 5.2 H Chloride Carbon Dioxide BUN 86 H Creatinine 3.2 H Glucose 128 H POC Glucose 135 H Calcium 10.3 H Phosphorus Magnesium ALT Alkaline Phosphatase Total Creatine Kinase CK-MB (CK-2) Rel Index Troponin T Albumin LDL Cholesterol Direct PTH Intact Salicylates Acetaminophen Crossmatch 03/23/19 03/23/19 03/23/19 05:21 11:36 11:36 WBC RBC Hgb 7.9 L Hct 25.0 L MCV MCH MCHC RDW Plt Count Lymph % (Auto) [place] % (Auto) Eos % (Auto) Lymph # [place] # Eos # Seg Neutrophils % Seg Neuts % (Manual) Lymphocytes % (Manual) Eosinophils % (Manual) Seg Neutrophils # Lymphocytes # (Manual) Eosinophils # (Manual) PT INR D-Dimer POC ABG pH POC ABG pCO2 POC ABG pO2 ABG pO2 ABG HCO3 ABG Base Excess ABG Hemoglobin Oxyhemoglobin Sodium Potassium Chloride Carbon Dioxide BUN Creatinine Glucose POC Glucose 132 H 147 H Calcium Phosphorus Magnesium ALT Alkaline Phosphatase Total Creatine Kinase CK-MB (CK-2) Rel Index Troponin T Albumin LDL Cholesterol Direct PTH Intact Salicylates Acetaminophen Crossmatch 03/23/19 03/24/19 03/24/19 17:31 01:22 04:20 WBC 12.2 H RBC 3.05 L Hgb 8.3 L Hct 25.9 L MCV MCH 27 L MCHC RDW 18.7 H Plt Count Lymph % (Auto) [place] % (Auto) Eos % (Auto) Lymph # [place] # Eos # Seg Neutrophils % Seg Neuts % (Manual) Lymphocytes % (Manual) Eosinophils % (Manual) Seg Neutrophils # Lymphocytes # (Manual) Eosinophils # (Manual) PT INR D-Dimer POC ABG pH POC ABG pCO2 POC ABG pO2 ABG pO2 ABG HCO3 ABG Base Excess ABG Hemoglobin Oxyhemoglobin Sodium Potassium Chloride Carbon Dioxide BUN Creatinine Glucose POC Glucose 182 H 113 H Calcium Phosphorus Magnesium ALT Alkaline Phosphatase Total Creatine Kinase CK-MB (CK-2) Rel Index Troponin T Albumin LDL Cholesterol Direct PTH Intact Salicylates Acetaminophen Crossmatch 03/24/19 03/24/19 03/24/19 04:20 11:59 18:14 WBC RBC Hgb Hct MCV MCH MCHC RDW Plt Count Lymph % (Auto) [place] % (Auto) Eos % (Auto) Lymph # [place] # Eos # Seg Neutrophils % Seg Neuts % (Manual) Lymphocytes % (Manual) Eosinophils % (Manual) Seg Neutrophils # Lymphocytes # (Manual) Eosinophils # (Manual) PT INR D-Dimer POC ABG pH POC ABG pCO2 POC ABG pO2 ABG pO2 ABG HCO3 ABG Base Excess ABG Hemoglobin Oxyhemoglobin Sodium Potassium Chloride 94.8 L Carbon Dioxide 32 H BUN 53 H Creatinine 2.3 H Glucose POC Glucose 163 H 134 H Calcium Phosphorus Magnesium ALT Alkaline Phosphatase Total Creatine Kinase CK-MB (CK-2) Rel Index Troponin T Albumin LDL Cholesterol Direct PTH Intact Salicylates Acetaminophen Crossmatch 03/24/19 03/25/19 03/25/19 23:15 05:52 12:02 WBC RBC Hgb Hct MCV MCH MCHC RDW Plt Count Lymph % (Auto) [place] % (Auto) Eos % (Auto) Lymph # [place] # Eos # Seg Neutrophils % Seg Neuts % (Manual) Lymphocytes % (Manual) Eosinophils % (Manual) Seg Neutrophils # Lymphocytes # (Manual) Eosinophils # (Manual) PT INR D-Dimer POC ABG pH POC ABG pCO2 POC ABG pO2 ABG pO2 ABG HCO3 ABG Base Excess ABG Hemoglobin Oxyhemoglobin Sodium Potassium Chloride Carbon Dioxide BUN Creatinine Glucose POC Glucose 129 H 123 H 125 H Calcium Phosphorus Magnesium ALT Alkaline Phosphatase Total Creatine Kinase CK-MB (CK-2) Rel Index Troponin T Albumin LDL Cholesterol Direct PTH Intact Salicylates Acetaminophen Crossmatch 03/25/19 03/26/19 03/26/19 17:27 00:30 05:35 WBC RBC 3.01 L Hgb 8.1 L Hct 25.7 L MCV MCH 27 L MCHC RDW 19.2 H Plt Count Lymph % (Auto) 11.4 L [place]ke[place] % (Auto) Eos % (Auto) 8.0 H Lymph # 1.0 L Mckean # Eos # 0.7 H Seg Neutrophils % 73.9 H Seg Neuts % (Manual) Lymphocytes % (Manual) Eosinophils % (Manual) Seg Neutrophils # Lymphocytes # (Manual) Eosinophils # (Manual) PT INR D-Dimer POC ABG pH POC ABG pCO2 POC ABG pO2 ABG pO2 ABG HCO3 ABG Base Excess ABG Hemoglobin Oxyhemoglobin Sodium Potassium Chloride Carbon Dioxide BUN Creatinine Glucose POC Glucose 130 H 129 H Calcium Phosphorus Magnesium ALT Alkaline Phosphatase Total Creatine Kinase CK-MB (CK-2) Rel Index Troponin T Albumin LDL Cholesterol Direct PTH Intact Salicylates Acetaminophen Crossmatch 03/26/19 03/26/19 03/26/19 05:35 05:45 12:16 WBC RBC Hgb Hct MCV MCH MCHC RDW Plt Count Lymph % (Auto) [place] % (Auto) Eos % (Auto) Lymph # Mcke[place] # Eos # Seg Neutrophils % Seg Neuts % (Manual) Lymphocytes % (Manual) Eosinophils % (Manual) Seg Neutrophils # Lymphocytes # (Manual) Eosinophils # (Manual) PT INR D-Dimer POC ABG pH POC ABG pCO2 POC ABG pO2 ABG pO2 ABG HCO3 ABG Base Excess ABG Hemoglobin Oxyhemoglobin Sodium Potassium Chloride 94.9 L Carbon Dioxide 31 H BUN 44 H Creatinine 2.0 H Glucose POC Glucose 118 H 107 H Calcium Phosphorus Magnesium ALT Alkaline Phosphatase Total Creatine Kinase CK-MB (CK-2) Rel Index Troponin T Albumin LDL Cholesterol Direct PTH Intact Salicylates Acetaminophen Crossmatch 03/26/19 03/27/19 03/27/19 17:56 00:36 05:37 WBC RBC Hgb Hct MCV MCH MCHC RDW Plt Count Lymph % (Auto) [place] % (Auto) Eos % (Auto) Lymph # Mcke[place] # Eos # Seg Neutrophils % Seg Neuts % (Manual) Lymphocytes % (Manual) Eosinophils % (Manual) Seg Neutrophils # Lymphocytes # (Manual) Eosinophils # (Manual) PT INR D-Dimer POC ABG pH POC ABG pCO2 POC ABG pO2 ABG pO2 ABG HCO3 ABG Base Excess ABG Hemoglobin Oxyhemoglobin Sodium Potassium Chloride Carbon Dioxide BUN Creatinine Glucose POC Glucose 107 H 110 H 122 H Calcium Phosphorus Magnesium ALT Alkaline Phosphatase Total Creatine Kinase CK-MB (CK-2) Rel Index Troponin T Albumin LDL Cholesterol Direct PTH Intact Salicylates Acetaminophen Crossmatch 03/27/19 03/27/19 03/28/19 11:22 18:00 05:17 WBC RBC Hgb Hct MCV MCH MCHC RDW Plt Count Lymph % (Auto) [place] % (Auto) Eos % (Auto) Lymph # Mckean # Eos # Seg Neutrophils % Seg Neuts % (Manual) Lymphocytes % (Manual) Eosinophils % (Manual) Seg Neutrophils # Lymphocytes # (Manual) Eosinophils # (Manual) PT INR D-Dimer POC ABG pH POC ABG pCO2 POC ABG pO2 ABG pO2 ABG HCO3 ABG Base Excess ABG Hemoglobin Oxyhemoglobin Sodium Potassium Chloride Carbon Dioxide BUN Creatinine Glucose POC Glucose 120 H 111 H 107 H Calcium Phosphorus Magnesium ALT Alkaline Phosphatase Total Creatine Kinase CK-MB (CK-2) Rel Index Troponin T Albumin LDL Cholesterol Direct PTH Intact Salicylates Acetaminophen Crossmatch 03/28/19 03/28/19 03/29/19 12:27 18:08 05:47 WBC RBC Hgb Hct MCV MCH MCHC RDW Plt Count Lymph % (Auto) [place] % (Auto) Eos % (Auto) Lymph # Mckean # Eos # Seg Neutrophils % Seg Neuts % (Manual) Lymphocytes % (Manual) Eosinophils % (Manual) Seg Neutrophils # Lymphocytes # (Manual) Eosinophils # (Manual) PT INR D-Dimer POC ABG pH POC ABG pCO2 POC ABG pO2 ABG pO2 ABG HCO3 ABG Base Excess ABG Hemoglobin Oxyhemoglobin Sodium Potassium Chloride Carbon Dioxide BUN Creatinine Glucose POC Glucose 114 H 121 H 112 H Calcium Phosphorus Magnesium ALT Alkaline Phosphatase Total Creatine Kinase CK-MB (CK-2) Rel Index Troponin T Albumin LDL Cholesterol Direct PTH Intact Salicylates Acetaminophen Crossmatch 03/29/19 03/29/19 03/30/19 12:14 18:08 00:31 WBC RBC Hgb Hct MCV MCH MCHC RDW Plt Count Lymph % (Auto) [place] % (Auto) Eos % (Auto) Lymph # [place]kean # Eos # Seg Neutrophils % Seg Neuts % (Manual) Lymphocytes % (Manual) Eosinophils % (Manual) Seg Neutrophils # Lymphocytes # (Manual) Eosinophils # (Manual) PT INR D-Dimer POC ABG pH POC ABG pCO2 POC ABG pO2 ABG pO2 ABG HCO3 ABG Base Excess ABG Hemoglobin Oxyhemoglobin Sodium Potassium Chloride Carbon Dioxide BUN Creatinine Glucose POC Glucose 117 H 140 H 114 H Calcium Phosphorus Magnesium ALT Alkaline Phosphatase Total Creatine Kinase CK-MB (CK-2) Rel Index Troponin T Albumin LDL Cholesterol Direct PTH Intact Salicylates Acetaminophen Crossmatch 03/30/19 03/30/19 03/30/19 10:13 10:13 23:53 WBC RBC 2.81 L Hgb 7.7 L Hct 24.3 L MCV MCH 27 L MCHC RDW 19.0 H Plt Count Lymph % (Auto) 12.2 L Mckean % (Auto) Eos % (Auto) 7.9 H Lymph # 1.0 L Mckean # Eos # 0.6 H Seg Neutrophils % 72.3 H Seg Neuts % (Manual) Lymphocytes % (Manual) Eosinophils % (Manual) Seg Neutrophils # Lymphocytes # (Manual) Eosinophils # (Manual) PT INR D-Dimer POC ABG pH POC ABG pCO2 POC ABG pO2 ABG pO2 ABG HCO3 ABG Base Excess ABG Hemoglobin Oxyhemoglobin Sodium Potassium 5.1 H Chloride 96.5 L Carbon Dioxide BUN 73 H Creatinine 3.9 H D Glucose POC Glucose 114 H Calcium 10.3 H Phosphorus 6.30 H Magnesium 2.70 H ALT Alkaline Phosphatase 185 H Total Creatine Kinase CK-MB (CK-2) Rel Index Troponin T Albumin 2.6 L LDL Cholesterol Direct PTH Intact Salicylates Acetaminophen Crossmatch 03/31/19 03/31/19 03/31/19 05:45 10:26 10:26 WBC RBC 3.01 L Hgb 8.2 L Hct 26.4 L MCV MCH 27 L MCHC 31 L RDW 20.3 H Plt Count Lymph % (Auto) 13.3 L Mckean % (Auto) Eos % (Auto) 7.2 H Lymph # 1.1 L Mckean # Eos # 0.6 H Seg Neutrophils % 72.1 H Seg Neuts % (Manual) Lymphocytes % (Manual) Eosinophils % (Manual) Seg Neutrophils # Lymphocytes # (Manual) Eosinophils # (Manual) PT INR D-Dimer POC ABG pH POC ABG pCO2 POC ABG pO2 ABG pO2 ABG HCO3 ABG Base Excess ABG Hemoglobin Oxyhemoglobin Sodium Potassium Chloride 96.9 L Carbon Dioxide 33 H BUN 37 H Creatinine 2.4 H Glucose POC Glucose 108 H Calcium 10.3 H Phosphorus Magnesium ALT Alkaline Phosphatase Total Creatine Kinase CK-MB (CK-2) Rel Index Troponin T Albumin LDL Cholesterol Direct PTH Intact Salicylates Acetaminophen Crossmatch 03/31/19 04/01/19 04/01/19 12:38 05:48 12:06 WBC RBC Hgb Hct MCV MCH MCHC RDW Plt Count Lymph % (Auto) [place] % (Auto) Eos % (Auto) Lymph # [place]ke[place] # Eos # Seg Neutrophils % Seg Neuts % (Manual) Lymphocytes % (Manual) Eosinophils % (Manual) Seg Neutrophils # Lymphocytes # (Manual) Eosinophils # (Manual) PT INR D-Dimer POC ABG pH POC ABG pCO2 POC ABG pO2 ABG pO2 ABG HCO3 ABG Base Excess ABG Hemoglobin Oxyhemoglobin Sodium Potassium Chloride Carbon Dioxide BUN Creatinine Glucose POC Glucose 108 H 114 H 111 H Calcium Phosphorus Magnesium ALT Alkaline Phosphatase Total Creatine Kinase CK-MB (CK-2) Rel Index Troponin T Albumin LDL Cholesterol Direct PTH Intact Salicylates Acetaminophen Crossmatch 04/01/19 04/02/19 04/04/19 18:24 00:36 23:55 WBC RBC Hgb Hct MCV MCH MCHC RDW Plt Count Lymph % (Auto) [place] % (Auto) Eos % (Auto) Lymph # [place] # Eos # Seg Neutrophils % Seg Neuts % (Manual) Lymphocytes % (Manual) Eosinophils % (Manual) Seg Neutrophils # Lymphocytes # (Manual) Eosinophils # (Manual) PT INR D-Dimer POC ABG pH POC ABG pCO2 POC ABG pO2 ABG pO2 ABG HCO3 ABG Base Excess ABG Hemoglobin Oxyhemoglobin Sodium Potassium Chloride Carbon Dioxide BUN Creatinine Glucose POC Glucose 113 H 117 H 109 H Calcium Phosphorus Magnesium ALT Alkaline Phosphatase Total Creatine Kinase CK-MB (CK-2) Rel Index Troponin T Albumin LDL Cholesterol Direct PTH Intact Salicylates Acetaminophen Crossmatch 04/06/19 04/06/19 04/06/19 00:11 06:02 23:30 WBC RBC Hgb Hct MCV MCH MCHC RDW Plt Count Lymph % (Auto) [place] % (Auto) Eos % (Auto) Lymph # [place] # Eos # Seg Neutrophils % Seg Neuts % (Manual) Lymphocytes % (Manual) Eosinophils % (Manual) Seg Neutrophils # Lymphocytes # (Manual) Eosinophils # (Manual) PT INR D-Dimer POC ABG pH POC ABG pCO2 POC ABG pO2 ABG pO2 ABG HCO3 ABG Base Excess ABG Hemoglobin Oxyhemoglobin Sodium Potassium Chloride Carbon Dioxide BUN Creatinine Glucose POC Glucose 116 H 112 H 112 H Calcium Phosphorus Magnesium ALT Alkaline Phosphatase Total Creatine Kinase CK-MB (CK-2) Rel Index Troponin T Albumin LDL Cholesterol Direct PTH Intact Salicylates Acetaminophen Crossmatch 04/08/19 04/08/19 04/08/19 02:23 06:19 13:01 WBC RBC Hgb Hct MCV MCH MCHC RDW Plt Count Lymph % (Auto) [place] % (Auto) Eos % (Auto) Lymph # [place] # Eos # Seg Neutrophils % Seg Neuts % (Manual) Lymphocytes % (Manual) Eosinophils % (Manual) Seg Neutrophils # Lymphocytes # (Manual) Eosinophils # (Manual) PT INR D-Dimer POC ABG pH POC ABG pCO2 POC ABG pO2 ABG pO2 ABG HCO3 ABG Base Excess ABG Hemoglobin Oxyhemoglobin Sodium Potassium Chloride Carbon Dioxide BUN Creatinine Glucose POC Glucose 144 H 126 H 118 H Calcium Phosphorus Magnesium ALT Alkaline Phosphatase Total Creatine Kinase CK-MB (CK-2) Rel Index Troponin T Albumin LDL Cholesterol Direct PTH Intact Salicylates Acetaminophen Crossmatch 04/08/19 04/09/19 04/10/19 23:28 05:52 06:34 WBC RBC Hgb Hct MCV MCH MCHC RDW Plt Count Lymph % (Auto) [place] % (Auto) Eos % (Auto) Lymph # [place] # Eos # Seg Neutrophils % Seg Neuts % (Manual) Lymphocytes % (Manual) Eosinophils % (Manual) Seg Neutrophils # Lymphocytes # (Manual) Eosinophils # (Manual) PT INR D-Dimer POC ABG pH POC ABG pCO2 POC ABG pO2 ABG pO2 ABG HCO3 ABG Base Excess ABG Hemoglobin Oxyhemoglobin Sodium Potassium Chloride Carbon Dioxide BUN Creatinine Glucose POC Glucose 119 H 116 H 114 H Calcium Phosphorus Magnesium ALT Alkaline Phosphatase Total Creatine Kinase CK-MB (CK-2) Rel Index Troponin T Albumin LDL Cholesterol Direct PTH Intact Salicylates Acetaminophen Crossmatch 04/10/19 04/10/19 04/11/19 12:34 18:59 00:36 WBC RBC Hgb Hct MCV MCH MCHC RDW Plt Count Lymph % (Auto) [place] % (Auto) Eos % (Auto) Lymph # [place] # Eos # Seg Neutrophils % Seg Neuts % (Manual) Lymphocytes % (Manual) Eosinophils % (Manual) Seg Neutrophils # Lymphocytes # (Manual) Eosinophils # (Manual) PT INR D-Dimer POC ABG pH POC ABG pCO2 POC ABG pO2 ABG pO2 ABG HCO3 ABG Base Excess ABG Hemoglobin Oxyhemoglobin Sodium Potassium Chloride Carbon Dioxide BUN Creatinine Glucose POC Glucose 112 H 109 H 124 H Calcium Phosphorus Magnesium ALT Alkaline Phosphatase Total Creatine Kinase CK-MB (CK-2) Rel Index Troponin T Albumin LDL Cholesterol Direct PTH Intact Salicylates Acetaminophen Crossmatch 04/11/19 04/11/19 04/12/19 08:01 17:25 02:18 WBC RBC Hgb Hct MCV MCH MCHC RDW Plt Count Lymph % (Auto) [place] % (Auto) Eos % (Auto) Lymph # [place] # Eos # Seg Neutrophils % Seg Neuts % (Manual) Lymphocytes % (Manual) Eosinophils % (Manual) Seg Neutrophils # Lymphocytes # (Manual) Eosinophils # (Manual) PT INR D-Dimer POC ABG pH POC ABG pCO2 POC ABG pO2 ABG pO2 ABG HCO3 ABG Base Excess ABG Hemoglobin Oxyhemoglobin Sodium Potassium Chloride Carbon Dioxide BUN Creatinine Glucose POC Glucose 118 H 106 H 125 H Calcium Phosphorus Magnesium ALT Alkaline Phosphatase Total Creatine Kinase CK-MB (CK-2) Rel Index Troponin T Albumin LDL Cholesterol Direct PTH Intact Salicylates Acetaminophen Crossmatch 04/12/19 04/12/19 04/12/19 06:24 12:22 17:13 WBC RBC Hgb Hct MCV MCH MCHC RDW Plt Count Lymph % (Auto) [place] % (Auto) Eos % (Auto) Lymph # [place] # Eos # Seg Neutrophils % Seg Neuts % (Manual) Lymphocytes % (Manual) Eosinophils % (Manual) Seg Neutrophils # Lymphocytes # (Manual) Eosinophils # (Manual) PT INR D-Dimer POC ABG pH POC ABG pCO2 POC ABG pO2 ABG pO2 ABG HCO3 ABG Base Excess ABG Hemoglobin Oxyhemoglobin Sodium Potassium Chloride Carbon Dioxide BUN Creatinine Glucose POC Glucose 128 H 114 H 110 H Calcium Phosphorus Magnesium ALT Alkaline Phosphatase Total Creatine Kinase CK-MB (CK-2) Rel Index Troponin T Albumin LDL Cholesterol Direct PTH Intact Salicylates Acetaminophen Crossmatch 04/13/19 04/13/19 04/13/19 06:59 07:31 07:31 WBC RBC 3.34 L Hgb 8.9 L Hct 28.6 L MCV MCH 27 L MCHC 31 L RDW 19.6 H Plt Count Lymph % (Auto) [place] % (Auto) Eos % (Auto) Lymph # [place] # Eos # Seg Neutrophils % Seg Neuts % (Manual) Lymphocytes % (Manual) Eosinophils % (Manual) Seg Neutrophils # Lymphocytes # (Manual) Eosinophils # (Manual) PT INR D-Dimer POC ABG pH POC ABG pCO2 POC ABG pO2 ABG pO2 ABG HCO3 ABG Base Excess ABG Hemoglobin Oxyhemoglobin Sodium Potassium Chloride 96.4 L Carbon Dioxide 33 H BUN 66 H Creatinine 4.5 H Glucose 103 H POC Glucose 107 H Calcium Phosphorus Magnesium ALT Alkaline Phosphatase Total Creatine Kinase CK-MB (CK-2) Rel Index Troponin T Albumin LDL Cholesterol Direct PTH Intact Salicylates Acetaminophen Crossmatch 04/13/19 04/14/19 04/14/19 23:43 05:50 13:07 WBC RBC Hgb Hct MCV MCH MCHC RDW Plt Count Lymph % (Auto) [place] % (Auto) Eos % (Auto) Lymph # [place] # Eos # Seg Neutrophils % Seg Neuts % (Manual) Lymphocytes % (Manual) Eosinophils % (Manual) Seg Neutrophils # Lymphocytes # (Manual) Eosinophils # (Manual) PT INR D-Dimer POC ABG pH POC ABG pCO2 POC ABG pO2 ABG pO2 ABG HCO3 ABG Base Excess ABG Hemoglobin Oxyhemoglobin Sodium Potassium Chloride Carbon Dioxide BUN Creatinine Glucose POC Glucose 119 H 112 H 112 H Calcium Phosphorus Magnesium ALT Alkaline Phosphatase Total Creatine Kinase CK-MB (CK-2) Rel Index Troponin T Albumin LDL Cholesterol Direct PTH Intact Salicylates Acetaminophen Crossmatch 04/14/19 04/15/19 04/15/19 18:35 01:18 05:17 WBC RBC Hgb Hct MCV MCH MCHC RDW Plt Count Lymph % (Auto) [place] % (Auto) Eos % (Auto) Lymph # [place] # Eos # Seg Neutrophils % Seg Neuts % (Manual) Lymphocytes % (Manual) Eosinophils % (Manual) Seg Neutrophils # Lymphocytes # (Manual) Eosinophils # (Manual) PT INR D-Dimer POC ABG pH POC ABG pCO2 POC ABG pO2 ABG pO2 ABG HCO3 ABG Base Excess ABG Hemoglobin Oxyhemoglobin Sodium Potassium Chloride Carbon Dioxide BUN Creatinine Glucose POC Glucose 114 H 114 H 114 H Calcium Phosphorus Magnesium ALT Alkaline Phosphatase Total Creatine Kinase CK-MB (CK-2) Rel Index Troponin T Albumin LDL Cholesterol Direct PTH Intact Salicylates Acetaminophen Crossmatch 04/15/19 04/15/19 04/16/19 11:50 23:39 05:41 WBC RBC Hgb Hct MCV MCH MCHC RDW Plt Count Lymph % (Auto) [place] % (Auto) Eos % (Auto) Lymph # [place] # Eos # Seg Neutrophils % Seg Neuts % (Manual) Lymphocytes % (Manual) Eosinophils % (Manual) Seg Neutrophils # Lymphocytes # (Manual) Eosinophils # (Manual) PT INR D-Dimer POC ABG pH POC ABG pCO2 POC ABG pO2 ABG pO2 ABG HCO3 ABG Base Excess ABG Hemoglobin Oxyhemoglobin Sodium Potassium Chloride Carbon Dioxide BUN Creatinine Glucose POC Glucose 109 H 115 H 125 H Calcium Phosphorus Magnesium ALT Alkaline Phosphatase Total Creatine Kinase CK-MB (CK-2) Rel Index Troponin T Albumin LDL Cholesterol Direct PTH Intact Salicylates Acetaminophen Crossmatch 04/16/19 04/17/19 04/17/19 12:53 01:00 12:38 WBC RBC Hgb Hct MCV MCH MCHC RDW Plt Count Lymph % (Auto) [place] % (Auto) Eos % (Auto) Lymph # [place] # Eos # Seg Neutrophils % Seg Neuts % (Manual) Lymphocytes % (Manual) Eosinophils % (Manual) Seg Neutrophils # Lymphocytes # (Manual) Eosinophils # (Manual) PT INR D-Dimer POC ABG pH POC ABG pCO2 POC ABG pO2 ABG pO2 ABG HCO3 ABG Base Excess ABG Hemoglobin Oxyhemoglobin Sodium Potassium Chloride Carbon Dioxide BUN Creatinine Glucose POC Glucose 121 H 127 H 159 H Calcium Phosphorus Magnesium ALT Alkaline Phosphatase Total Creatine Kinase CK-MB (CK-2) Rel Index Troponin T Albumin LDL Cholesterol Direct PTH Intact Salicylates Acetaminophen Crossmatch 04/17/19 04/17/19 04/18/19 18:27 23:36 07:19 WBC RBC 3.49 L Hgb 9.0 L Hct 29.9 L MCV MCH 26 L MCHC 30 L RDW 20.0 H Plt Count Lymph % (Auto) [place] % (Auto) Eos % (Auto) Lymph # [place] # Eos # Seg Neutrophils % Seg Neuts % (Manual) Lymphocytes % (Manual) Eosinophils % (Manual) Seg Neutrophils # Lymphocytes # (Manual) Eosinophils # (Manual) PT INR D-Dimer POC ABG pH POC ABG pCO2 POC ABG pO2 ABG pO2 ABG HCO3 ABG Base Excess ABG Hemoglobin Oxyhemoglobin Sodium Potassium Chloride Carbon Dioxide BUN Creatinine Glucose POC Glucose 109 H 134 H Calcium Phosphorus Magnesium ALT Alkaline Phosphatase Total Creatine Kinase CK-MB (CK-2) Rel Index Troponin T Albumin LDL Cholesterol Direct PTH Intact Salicylates Acetaminophen Crossmatch 04/18/19 04/18/19 04/18/19 07:19 12:16 17:09 WBC RBC Hgb Hct MCV MCH MCHC RDW Plt Count Lymph % (Auto) [place] % (Auto) Eos % (Auto) Lymph # [place] # Eos # Seg Neutrophils % Seg Neuts % (Manual) Lymphocytes % (Manual) Eosinophils % (Manual) Seg Neutrophils # Lymphocytes # (Manual) Eosinophils # (Manual) PT INR D-Dimer POC ABG pH POC ABG pCO2 POC ABG pO2 ABG pO2 ABG HCO3 ABG Base Excess ABG Hemoglobin Oxyhemoglobin Sodium Potassium Chloride Carbon Dioxide BUN 41 H Creatinine 2.9 H Glucose 122 H POC Glucose 125 H 131 H Calcium Phosphorus Magnesium ALT Alkaline Phosphatase Total Creatine Kinase CK-MB (CK-2) Rel Index Troponin T Albumin LDL Cholesterol Direct PTH Intact Salicylates Acetaminophen Crossmatch 04/18/19 04/19/19 04/19/19 23:57 05:55 11:35 WBC RBC Hgb Hct MCV MCH MCHC RDW Plt Count Lymph % (Auto) [place] % (Auto) Eos % (Auto) Lymph # [place] # Eos # Seg Neutrophils % Seg Neuts % (Manual) Lymphocytes % (Manual) Eosinophils % (Manual) Seg Neutrophils # Lymphocytes # (Manual) Eosinophils # (Manual) PT INR D-Dimer POC ABG pH POC ABG pCO2 POC ABG pO2 ABG pO2 ABG HCO3 ABG Base Excess ABG Hemoglobin Oxyhemoglobin Sodium Potassium Chloride Carbon Dioxide BUN Creatinine Glucose POC Glucose 159 H 144 H 177 H Calcium Phosphorus Magnesium ALT Alkaline Phosphatase Total Creatine Kinase CK-MB (CK-2) Rel Index Troponin T Albumin LDL Cholesterol Direct PTH Intact Salicylates Acetaminophen Crossmatch 04/19/19 04/20/19 04/20/19 16:36 02:05 06:28 WBC RBC Hgb Hct MCV MCH MCHC RDW Plt Count Lymph % (Auto) [place] % (Auto) Eos % (Auto) Lymph # [place] # Eos # Seg Neutrophils % Seg Neuts % (Manual) Lymphocytes % (Manual) Eosinophils % (Manual) Seg Neutrophils # Lymphocytes # (Manual) Eosinophils # (Manual) PT INR D-Dimer POC ABG pH POC ABG pCO2 POC ABG pO2 ABG pO2 ABG HCO3 ABG Base Excess ABG Hemoglobin Oxyhemoglobin Sodium Potassium Chloride Carbon Dioxide BUN Creatinine Glucose POC Glucose 134 H 142 H 132 H Calcium Phosphorus Magnesium ALT Alkaline Phosphatase Total Creatine Kinase CK-MB (CK-2) Rel Index Troponin T Albumin LDL Cholesterol Direct PTH Intact Salicylates Acetaminophen Crossmatch 04/20/19 04/20/19 04/21/19 12:37 23:34 05:59 WBC RBC Hgb Hct MCV MCH MCHC RDW Plt Count Lymph % (Auto) [place] % (Auto) Eos % (Auto) Lymph # [place] # Eos # Seg Neutrophils % Seg Neuts % (Manual) Lymphocytes % (Manual) Eosinophils % (Manual) Seg Neutrophils # Lymphocytes # (Manual) Eosinophils # (Manual) PT INR D-Dimer POC ABG pH POC ABG pCO2 POC ABG pO2 ABG pO2 ABG HCO3 ABG Base Excess ABG Hemoglobin Oxyhemoglobin Sodium Potassium Chloride Carbon Dioxide BUN Creatinine Glucose POC Glucose 163 H 166 H 140 H Calcium Phosphorus Magnesium ALT Alkaline Phosphatase Total Creatine Kinase CK-MB (CK-2) Rel Index Troponin T Albumin LDL Cholesterol Direct PTH Intact Salicylates Acetaminophen Crossmatch 04/21/19 04/21/19 04/21/19 12:07 17:22 23:43 WBC RBC Hgb Hct MCV MCH MCHC RDW Plt Count Lymph % (Auto) [place] % (Auto) Eos % (Auto) Lymph # [place] # Eos # Seg Neutrophils % Seg Neuts % (Manual) Lymphocytes % (Manual) Eosinophils % (Manual) Seg Neutrophils # Lymphocytes # (Manual) Eosinophils # (Manual) PT INR D-Dimer POC ABG pH POC ABG pCO2 POC ABG pO2 ABG pO2 ABG HCO3 ABG Base Excess ABG Hemoglobin Oxyhemoglobin Sodium Potassium Chloride Carbon Dioxide BUN Creatinine Glucose POC Glucose 135 H 141 H 138 H Calcium Phosphorus Magnesium ALT Alkaline Phosphatase Total Creatine Kinase CK-MB (CK-2) Rel Index Troponin T Albumin LDL Cholesterol Direct PTH Intact Salicylates Acetaminophen Crossmatch 04/22/19 04/22/19 04/22/19 05:12 18:24 23:49 WBC RBC Hgb Hct MCV MCH MCHC RDW Plt Count Lymph % (Auto) [place] % (Auto) Eos % (Auto) Lymph # [place] # Eos # Seg Neutrophils % Seg Neuts % (Manual) Lymphocytes % (Manual) Eosinophils % (Manual) Seg Neutrophils # Lymphocytes # (Manual) Eosinophils # (Manual) PT INR D-Dimer POC ABG pH POC ABG pCO2 POC ABG pO2 ABG pO2 ABG HCO3 ABG Base Excess ABG Hemoglobin Oxyhemoglobin Sodium Potassium Chloride Carbon Dioxide BUN Creatinine Glucose POC Glucose 141 H 137 H 142 H Calcium Phosphorus Magnesium ALT Alkaline Phosphatase Total Creatine Kinase CK-MB (CK-2) Rel Index Troponin T Albumin LDL Cholesterol Direct PTH Intact Salicylates Acetaminophen Crossmatch 04/23/19 04/23/19 04/23/19 05:53 08:13 11:58 WBC RBC Hgb Hct MCV MCH MCHC RDW Plt Count Lymph % (Auto) [place] % (Auto) Eos % (Auto) Lymph # [place] # Eos # Seg Neutrophils % Seg Neuts % (Manual) Lymphocytes % (Manual) Eosinophils % (Manual) Seg Neutrophils # Lymphocytes # (Manual) Eosinophils # (Manual) PT INR D-Dimer POC ABG pH POC ABG pCO2 POC ABG pO2 ABG pO2 ABG HCO3 ABG Base Excess ABG Hemoglobin Oxyhemoglobin Sodium Potassium Chloride Carbon Dioxide BUN Creatinine Glucose POC Glucose 132 H 154 H 165 H Calcium Phosphorus Magnesium ALT Alkaline Phosphatase Total Creatine Kinase CK-MB (CK-2) Rel Index Troponin T Albumin LDL Cholesterol Direct PTH Intact Salicylates Acetaminophen Crossmatch 04/23/19 04/24/19 04/24/19 16:28 00:28 07:00 WBC RBC Hgb Hct MCV MCH MCHC RDW Plt Count Lymph % (Auto) [place] % (Auto) Eos % (Auto) Lymph # [place] # Eos # Seg Neutrophils % Seg Neuts % (Manual) Lymphocytes % (Manual) Eosinophils % (Manual) Seg Neutrophils # Lymphocytes # (Manual) Eosinophils # (Manual) PT INR D-Dimer POC ABG pH POC ABG pCO2 POC ABG pO2 ABG pO2 ABG HCO3 ABG Base Excess ABG Hemoglobin Oxyhemoglobin Sodium Potassium Chloride Carbon Dioxide BUN Creatinine Glucose POC Glucose 136 H 140 H 141 H Calcium Phosphorus Magnesium ALT Alkaline Phosphatase Total Creatine Kinase CK-MB (CK-2) Rel Index Troponin T Albumin LDL Cholesterol Direct PTH Intact Salicylates Acetaminophen Crossmatch 04/24/19 04/24/19 04/25/19 12:38 18:57 00:38 WBC RBC Hgb Hct MCV MCH MCHC RDW Plt Count Lymph % (Auto) [place] % (Auto) Eos % (Auto) Lymph # [place] # Eos # Seg Neutrophils % Seg Neuts % (Manual) Lymphocytes % (Manual) Eosinophils % (Manual) Seg Neutrophils # Lymphocytes # (Manual) Eosinophils # (Manual) PT INR D-Dimer POC ABG pH POC ABG pCO2 POC ABG pO2 ABG pO2 ABG HCO3 ABG Base Excess ABG Hemoglobin Oxyhemoglobin Sodium Potassium Chloride Carbon Dioxide BUN Creatinine Glucose POC Glucose 152 H 166 H 128 H Calcium Phosphorus Magnesium ALT Alkaline Phosphatase Total Creatine Kinase CK-MB (CK-2) Rel Index Troponin T Albumin LDL Cholesterol Direct PTH Intact Salicylates Acetaminophen Crossmatch 04/25/19 04/25/19 04/25/19 05:44 13:43 18:34 WBC RBC Hgb Hct MCV MCH MCHC RDW Plt Count Lymph % (Auto) [place] % (Auto) Eos % (Auto) Lymph # [place] # Eos # Seg Neutrophils % Seg Neuts % (Manual) Lymphocytes % (Manual) Eosinophils % (Manual) Seg Neutrophils # Lymphocytes # (Manual) Eosinophils # (Manual) PT INR D-Dimer POC ABG pH POC ABG pCO2 POC ABG pO2 ABG pO2 ABG HCO3 ABG Base Excess ABG Hemoglobin Oxyhemoglobin Sodium Potassium Chloride Carbon Dioxide BUN Creatinine Glucose POC Glucose 153 H 186 H 124 H Calcium Phosphorus Magnesium ALT Alkaline Phosphatase Total Creatine Kinase CK-MB (CK-2) Rel Index Troponin T Albumin LDL Cholesterol Direct PTH Intact Salicylates Acetaminophen Crossmatch 04/26/19 04/26/19 04/26/19 00:59 05:52 10:12 WBC 11.5 H RBC 2.84 L Hgb 7.4 L Hct 23.3 L MCV 82 L MCH 26 L MCHC RDW 20.3 H Plt Count Lymph % (Auto) 7.5 L [place] % (Auto) 7.5 H Eos % (Auto) 5.3 H Lymph # 0.9 L [place] # 0.9 H Eos # 0.6 H Seg Neutrophils % 79.2 H Seg Neuts % (Manual) Lymphocytes % (Manual) Eosinophils % (Manual) Seg Neutrophils # 9.1 H Lymphocytes # (Manual) Eosinophils # (Manual) PT INR D-Dimer POC ABG pH POC ABG pCO2 POC ABG pO2 ABG pO2 ABG HCO3 ABG Base Excess ABG Hemoglobin Oxyhemoglobin Sodium Potassium Chloride Carbon Dioxide BUN Creatinine Glucose POC Glucose 163 H 146 H Calcium Phosphorus Magnesium ALT Alkaline Phosphatase Total Creatine Kinase CK-MB (CK-2) Rel Index Troponin T Albumin LDL Cholesterol Direct PTH Intact Salicylates Acetaminophen Crossmatch 04/26/19 04/26/19 04/26/19 10:12 12:15 19:00 WBC RBC Hgb Hct MCV MCH MCHC RDW Plt Count Lymph % (Auto) [place] % (Auto) Eos % (Auto) Lymph # [place] # Eos # Seg Neutrophils % Seg Neuts % (Manual) Lymphocytes % (Manual) Eosinophils % (Manual) Seg Neutrophils # Lymphocytes # (Manual) Eosinophils # (Manual) PT INR D-Dimer POC ABG pH POC ABG pCO2 POC ABG pO2 ABG pO2 ABG HCO3 ABG Base Excess ABG Hemoglobin Oxyhemoglobin Sodium 130 L Potassium Chloride 87.4 L Carbon Dioxide BUN 93 H Creatinine 4.2 H Glucose 140 H POC Glucose 155 H 179 H Calcium Phosphorus Magnesium ALT Alkaline Phosphatase Total Creatine Kinase CK-MB (CK-2) Rel Index Troponin T Albumin LDL Cholesterol Direct PTH Intact Salicylates Acetaminophen Crossmatch 04/27/19 04/27/19 04/27/19 00:23 06:34 17:13 WBC RBC Hgb Hct MCV MCH MCHC RDW Plt Count Lymph % (Auto) [place] % (Auto) Eos % (Auto) Lymph # [place] # Eos # Seg Neutrophils % Seg Neuts % (Manual) Lymphocytes % (Manual) Eosinophils % (Manual) Seg Neutrophils # Lymphocytes # (Manual) Eosinophils # (Manual) PT INR D-Dimer POC ABG pH POC ABG pCO2 POC ABG pO2 ABG pO2 ABG HCO3 ABG Base Excess ABG Hemoglobin Oxyhemoglobin Sodium Potassium Chloride Carbon Dioxide BUN Creatinine Glucose POC Glucose 158 H 140 H 152 H Calcium Phosphorus Magnesium ALT Alkaline Phosphatase Total Creatine Kinase CK-MB (CK-2) Rel Index Troponin T Albumin LDL Cholesterol Direct PTH Intact Salicylates Acetaminophen Crossmatch 04/27/19 04/28/19 04/28/19 23:50 05:18 11:37 WBC RBC Hgb Hct MCV MCH MCHC RDW Plt Count Lymph % (Auto) [place] % (Auto) Eos % (Auto) Lymph # [place] # Eos # Seg Neutrophils % Seg Neuts % (Manual) Lymphocytes % (Manual) Eosinophils % (Manual) Seg Neutrophils # Lymphocytes # (Manual) Eosinophils # (Manual) PT INR D-Dimer POC ABG pH POC ABG pCO2 POC ABG pO2 ABG pO2 ABG HCO3 ABG Base Excess ABG Hemoglobin Oxyhemoglobin Sodium Potassium Chloride Carbon Dioxide BUN Creatinine Glucose POC Glucose 160 H 145 H 177 H Calcium Phosphorus Magnesium ALT Alkaline Phosphatase Total Creatine Kinase CK-MB (CK-2) Rel Index Troponin T Albumin LDL Cholesterol Direct PTH Intact Salicylates Acetaminophen Crossmatch 04/28/19 04/28/19 04/29/19 18:31 23:47 05:50 WBC RBC Hgb Hct MCV MCH MCHC RDW Plt Count Lymph % (Auto) [place] % (Auto) Eos % (Auto) Lymph # [place] # Eos # Seg Neutrophils % Seg Neuts % (Manual) Lymphocytes % (Manual) Eosinophils % (Manual) Seg Neutrophils # Lymphocytes # (Manual) Eosinophils # (Manual) PT INR D-Dimer POC ABG pH POC ABG pCO2 POC ABG pO2 ABG pO2 ABG HCO3 ABG Base Excess ABG Hemoglobin Oxyhemoglobin Sodium Potassium Chloride Carbon Dioxide BUN Creatinine Glucose POC Glucose 153 H 117 H 177 H Calcium Phosphorus Magnesium ALT Alkaline Phosphatase Total Creatine Kinase CK-MB (CK-2) Rel Index Troponin T Albumin LDL Cholesterol Direct PTH Intact Salicylates Acetaminophen Crossmatch 04/29/19 04/30/19 04/30/19 17:04 01:02 06:42 WBC RBC Hgb Hct MCV MCH MCHC RDW Plt Count Lymph % (Auto) [place] % (Auto) Eos % (Auto) Lymph # [place] # Eos # Seg Neutrophils % Seg Neuts % (Manual) Lymphocytes % (Manual) Eosinophils % (Manual) Seg Neutrophils # Lymphocytes # (Manual) Eosinophils # (Manual) PT INR D-Dimer POC ABG pH POC ABG pCO2 POC ABG pO2 ABG pO2 ABG HCO3 ABG Base Excess ABG Hemoglobin Oxyhemoglobin Sodium Potassium Chloride Carbon Dioxide BUN Creatinine Glucose POC Glucose 205 H 143 H 145 H Calcium Phosphorus Magnesium ALT Alkaline Phosphatase Total Creatine Kinase CK-MB (CK-2) Rel Index Troponin T Albumin LDL Cholesterol Direct PTH Intact Salicylates Acetaminophen Crossmatch 04/30/19 04/30/19 04/30/19 11:31 18:12 23:38 WBC RBC Hgb Hct MCV MCH MCHC RDW Plt Count Lymph % (Auto) [place] % (Auto) Eos % (Auto) Lymph # [place] # Eos # Seg Neutrophils % Seg Neuts % (Manual) Lymphocytes % (Manual) Eosinophils % (Manual) Seg Neutrophils # Lymphocytes # (Manual) Eosinophils # (Manual) PT INR D-Dimer POC ABG pH POC ABG pCO2 POC ABG pO2 ABG pO2 ABG HCO3 ABG Base Excess ABG Hemoglobin Oxyhemoglobin Sodium Potassium Chloride Carbon Dioxide BUN Creatinine Glucose POC Glucose 162 H 117 H 139 H Calcium Phosphorus Magnesium ALT Alkaline Phosphatase Total Creatine Kinase CK-MB (CK-2) Rel Index Troponin T Albumin LDL Cholesterol Direct PTH Intact Salicylates Acetaminophen Crossmatch 05/01/19 05/01/19 05/02/19 06:06 23:41 05:59 WBC RBC Hgb Hct MCV MCH MCHC RDW Plt Count Lymph % (Auto) [place] % (Auto) Eos % (Auto) Lymph # [place] # Eos # Seg Neutrophils % Seg Neuts % (Manual) Lymphocytes % (Manual) Eosinophils % (Manual) Seg Neutrophils # Lymphocytes # (Manual) Eosinophils # (Manual) PT INR D-Dimer POC ABG pH POC ABG pCO2 POC ABG pO2 ABG pO2 ABG HCO3 ABG Base Excess ABG Hemoglobin Oxyhemoglobin Sodium Potassium Chloride Carbon Dioxide BUN Creatinine Glucose POC Glucose 150 H 140 H 130 H Calcium Phosphorus Magnesium ALT Alkaline Phosphatase Total Creatine Kinase CK-MB (CK-2) Rel Index Troponin T Albumin LDL Cholesterol Direct PTH Intact Salicylates Acetaminophen Crossmatch 05/02/19 05/02/19 05/03/19 11:55 18:10 00:15 WBC RBC Hgb Hct MCV MCH MCHC RDW Plt Count Lymph % (Auto) Mckean % (Auto) Eos % (Auto) Lymph # Mckean # Eos # Seg Neutrophils % Seg Neuts % (Manual) Lymphocytes % (Manual) Eosinophils % (Manual) Seg Neutrophils # Lymphocytes # (Manual) Eosinophils # (Manual) PT INR D-Dimer POC ABG pH POC ABG pCO2 POC ABG pO2 ABG pO2 ABG HCO3 ABG Base Excess ABG Hemoglobin Oxyhemoglobin Sodium Potassium Chloride Carbon Dioxide BUN Creatinine Glucose POC Glucose 146 H 141 H 145 H Calcium Phosphorus Magnesium ALT Alkaline Phosphatase Total Creatine Kinase CK-MB (CK-2) Rel Index Troponin T Albumin LDL Cholesterol Direct PTH Intact Salicylates Acetaminophen Crossmatch 05/03/19 05/03/19 05/03/19 05:49 05:49 06:01 WBC RBC 2.84 L Hgb 7.2 L Hct 22.9 L MCV 81 L MCH 26 L MCHC RDW 20.6 H Plt Count 456 H Lymph % (Auto) 11.8 L Mckean % (Auto) Eos % (Auto) 10.6 H Lymph # 1.1 L Mckean # Eos # 1.0 H Seg Neutrophils % 70.4 H Seg Neuts % (Manual) Lymphocytes % (Manual) Eosinophils % (Manual) Seg Neutrophils # Lymphocytes # (Manual) Eosinophils # (Manual) PT INR D-Dimer POC ABG pH POC ABG pCO2 POC ABG pO2 ABG pO2 ABG HCO3 ABG Base Excess ABG Hemoglobin Oxyhemoglobin Sodium Potassium Chloride 94.8 L Carbon Dioxide BUN 66 H Creatinine 3.6 H Glucose 129 H POC Glucose 135 H Calcium Phosphorus Magnesium ALT Alkaline Phosphatase Total Creatine Kinase CK-MB (CK-2) Rel Index Troponin T Albumin LDL Cholesterol Direct PTH Intact Salicylates Acetaminophen Crossmatch 05/03/19 05/03/19 11:04 18:40 WBC RBC Hgb Hct MCV MCH MCHC RDW Plt Count Lymph % (Auto) Mckean % (Auto) Eos % (Auto) Lymph # Mckean # Eos # Seg Neutrophils % Seg Neuts % (Manual) Lymphocytes % (Manual) Eosinophils % (Manual) Seg Neutrophils # Lymphocytes # (Manual) Eosinophils # (Manual) PT INR D-Dimer POC ABG pH POC ABG pCO2 POC ABG pO2 ABG pO2 ABG HCO3 ABG Base Excess ABG Hemoglobin Oxyhemoglobin Sodium Potassium Chloride Carbon Dioxide BUN Creatinine Glucose POC Glucose 191 H 167 H Calcium Phosphorus Magnesium ALT Alkaline Phosphatase Total Creatine Kinase CK-MB (CK-2) Rel Index Troponin T Albumin LDL Cholesterol Direct PTH Intact Salicylates Acetaminophen Crossmatch Chest x-ray: report reviewed, image reviewed
[2019-05-04] MEDS: INSULIN REGULAR, HUMAN 100 UNITS/1 ML SUB-Q SCH ×4 (06:41→17:10)
[2019-05-04] MEDS: IPRATROPIUM/ALBUTEROL SULFATE 3 ML AMPUL.NEB IH SCH ×3 (07:44→20:59)
[2019-05-04 08:03] LABS: Basophils # (Auto) 0.1 K/mm3 (0.0-0.1); Basophils % (Auto) 0.6 % (0.0-1.8); Eosinophils # (Auto) 0.6 K/mm3 (0.0-0.4); Hematocrit 22.2 % (35.5-45.6); Hemoglobin 6.7 gm/dl (11.8-15.2); Lymphocytes # (Auto) 0.8 K/mm3 (1.2-5.4); Lymphocytes % (Auto) 5.1 % (13.4-35.0); Mean Corpuscular HGB Conc 30 % (32-34); Mean Corpuscular Volume 81 fl (84-94); Monocytes # (Auto) 0.6 K/mm3 (0.0-0.8); Platelet Count 450 K/mm3 (140-440); Red Blood Count 2.74 M/mm3 (3.65-5.03)
[2019-05-04 08:06] LABS: Red Cell Distribution Width 20.4 % (13.2-15.2)
[2019-05-04 08:12] LABS: Calcium 10.2 mg/dL (8.4-10.2)
--- NOTE | 2019-05-04 10:43 | Progress Note ---
Subjective Principal diagnosis: Respiratory failure, acute on chronic systolic HF, ESRD Interval history: Patient was seen today for follow-up of multiple renal related issues on hemodialysis Saturday he was also seen and supervised on hemodialysis Overall health has been declining gradually He is arousable but confused, this is not new Past medical history: Reviewed Family history: Reviewed Social history: Reviewed Allergies: Reviewed Physical examination: Vitals: Reviewed HEENT: No pallor or icterus oral mucosa moist Neck: Supple no JVD no thyromegaly Chest: Bilateral clear to auscultation anteriorly Heart: Regular rate and rhythm S1-S2 heard no S3-S4 Abdomen: Soft nontender no voluntary guarding rigidity rebound Extremity: Dry skin less than 1+ peripheral edema Psychiatric: No evidence of agitation and aggression noted Dermatology: No petechial rashes Labs and x-rays: Reviewed from today Assessment and plan End-stage renal disease: Patient is currently on hemodialysis on Saturday and Saturday schedule here patient was also seen and supervised on hemodialysis As of today hemoglobin 6.7: Requires packed red blood cell transfusion at least 2 units Potassium 4.4 BUN 92 creatinine 4.8, ? Elevated BUN? Upper GI bleed Respiratory failure on mechanical ventilation Anemia and end-stage renal disease: Erythropoietin periodically, anemia is multifactorial, currently on 20,000 units of erythropoietin Secondary hyperparathyroidism: Check phosphorus and PTH level periodically Dialysis access: Currently working well, to be followed by vascular surgery periodically Overall prognosis very poor We'll continue to follow and make recommendation for renal standpoint Objective - Vital Signs Vital signs: Vital Signs - 12hr 05/03/19 05/04/19 05/04/19 23:55 03:15 03:32 Temperature 98.0 F 98.0 F Pulse Rate 91 H Pulse Rate [ Anterior Bilateral Throughout] Respiratory 20 18 Rate Respiratory Rate [Anterior Bilateral Throughout] Blood Pressure 109/55 115/64 O2 Sat by Pulse 100 86 Oximetry O2 Sat by Pulse 98 Oximetry [ Assessment] 05/04/19 05/04/19 05/04/19 07:40 07:52 07:53 Temperature Pulse Rate Pulse Rate [ 95 H Anterior Bilateral Throughout] Respiratory Rate Respiratory 16 Rate [Anterior Bilateral Throughout] Blood Pressure O2 Sat by Pulse 99 Oximetry O2 Sat by Pulse 99 Oximetry [ Assessment] 05/04/19 09:23 Temperature Pulse Rate 87 Pulse Rate [ Anterior Bilateral Throughout] Respiratory Rate Respiratory Rate [Anterior Bilateral Throughout] Blood Pressure 129/64 O2 Sat by Pulse 70 L Oximetry O2 Sat by Pulse Oximetry [ Assessment] - Lab 05/04/19 07:30 05/04/19 07:30 Most recent lab results ABG pH 7.424 pH Units (7.350-7.450) 03/19/19 04:23 ABG pCO2 48.0 mm Hg 03/19/19 04:23 ABG pO2 78.3 mm Hg (80.0-90.0) L 03/19/19 04:23 ABG HCO3 30.7 mmol/L (20.0-26.0) H 03/19/19 04:23 ABG O2 Saturation 97.0 % (95.0-99.0) 03/19/19 04:23 Calcium 10.2 mg/dL (8.4-10.2) 05/04/19 07:30 Phosphorus 4.30 mg/dL (2.5-4.5) D 03/31/19 10:26 Magnesium 2.70 mg/dL (1.7-2.3) H 03/30/19 10:13 Medications & Allergies - Medications Allergies/Adverse Reactions: Allergies haloperidol [From Haldol] Adverse Reaction (Verified 03/13/18 12:10) Unknown haloperidol lactate [From Haldol] Adverse Reaction (Verified 03/13/18 12:10) Unknown Home Medications: Home Medications Medication Instructions Recorded Confirmed Last Taken Type risperiDONE [RisperDAL] 1 mg PO QAM 03/13/18 02/21/19 Unknown History Sertraline [Zoloft] 100 mg PO QDAY 08/26/18 02/21/19 Unknown History Polyethylene Glycol 3350 [Miralax 17 gm PO QDAY #30 packet 11/05/18 02/21/19 Unknown Rx 3350] Aspirin EC [Halfprin EC] 81 mg PO DAILY #30 11/19/18 02/21/19 Unknown Rx Docusate Sodium [Colace CAP] 100 mg PO BID #60 11/19/18 02/21/19 Unknown Rx Folic Acid [Folvite] 1 mg PO DAILY #30 tab 11/19/18 02/21/19 Unknown Rx Famotidine [Pepcid] 20 mg PO DAILY tablet 12/08/18 02/21/19 Unknown Rx Gabapentin [Neurontin] 100 mg PO QHS capsule 12/08/18 02/21/19 Unknown Rx Metoprolol [Lopressor TAB] 50 mg PO BID 30 Days tablet 12/08/18 02/21/19 Unknown Rx Sevelamer Carbonate [Renvela] 800 mg PO TIDWM tablet 12/08/18 02/21/19 Unknown Rx hydrALAZINE [Apresoline TAB] 100 mg PO Q8HR #120 tablet 12/08/18 02/21/19 Unknown Rx Acetaminophen [Acetaminophen TAB] 650 mg PO Q12H PRN 12/15/18 02/21/19 Unknown History Glucagon,Human Recombinant 1 mg IJ Q15MIN PRN 12/15/18 02/21/19 Unknown History [Glucagon Emergency Kit] Insulin Aspart [NovoLOG 100 See Protocol SQ QWEEK 12/15/18 02/21/19 Unknown History UNITS/ML VIAL] Active Medications: Generic Name Dose Route Start Last Admin Trade Name Freq PRN Reason Stop Dose Admin Albuterol/Ipratropium 1 ampul 02/24/19 20:00 05/04/19 07:44 Duoneb *Not For Prn Use* IH 1 ampul TIDRT SANCHEZ Administration Lipase/Protease/Amylase 1 each 04/10/19 15:16 Pancreaze 10,500 Unit FEEDTUBE PRN PRN For Clogged Feeding Tube Epoetin Solitario 20,000 unit 03/24/19 11:17 04/29/19 13:17 Procrit IV 20,000 unit UMA PRN Administration hemodialysis Famotidine 20 mg 02/23/19 10:00 05/03/19 10:03 Pepcid PO 20 mg DAILY SANCHEZ Administration Insulin Human Regular 0 units 02/26/19 12:00 05/04/19 06:41 Humulin R SUB-Q 1 units Q6HR SANCHEZ Administration Protocol Metoprolol Tartrate 2.5 mg 02/28/19 12:06 03/15/19 05:15 Lopressor IV 2.5 mg Q4HR PRN Administration Tachycardia Risperidone 1 mg 02/25/19 13:00 05/03/19 10:04 Risperdal PO 1 mg DAILY SANCHEZ Administration Sertraline HCl 100 mg 02/25/19 13:00 05/03/19 10:03 Zoloft PO 100 mg DAILY SANCHEZ Administration Simple Syrup 15 ml 04/10/19 15:16 Simple Syrup FEEDTUBE PRN PRN Hypoglycemia Simple Syrup 30 ml 04/10/19 15:16 Simple Syrup FEEDTUBE PRN PRN Hypoglycemia Sodium Bicarbonate 325 mg 04/10/19 15:16 Sodium Bicarbonate FEEDTUBE PRN PRN For Clogged Feeding Tube Sodium Hypochlorite 1 applic 04/01/19 13:00 05/03/19 22:00 Dakin's Half Strength TP 1 applicatio BID SANCHEZ Administration
[2019-05-04] MEDS ORDERED: SODIUM CHLORIDE 0.9% 500 ML 500 ML IV ONE (12:24)
[2019-05-04] MEDS: EPOETIN ALFA 20,000 UNIT/1 ML INJ IV PRN (13:15)
--- NOTE | 2019-05-04 14:59 | Progress Note ---
Assessment and Plan /Acute respiratory failure on mechanical ventilator >96 hrs Likely from pulmonary edema with volume overload from end-stage renal disease a nd underlying CHF Extubated ; history of tracheostomy on T piece Current management , nebulizers, Currently on trach/peg placed on 03/03. Now off vent, cont oxygen supplement, improving, on t piece, nebulizers, pulmonary critical following /acute on chronic systolic CHF/ Acute pulmonary edema, HD per schedule /Dilated CMP, EF 35-40% Continue diuresis, supportive care /Acute metabolic encephalopathy, resolved, has baseline Dementia. /ESRD on hemodialysis per schedule nephrology following /-Bilateral pleural effusions improved with HD /Permanent atrial fibrillation and flutter and hypercoaguable state Not on anticoagulation because of anemia thrombocytopenia rate control meds optimized /-Diabetes mellitus type 2 Accu-Chek sliding scale coverage Insulin as needed /NSTEMI type 2 , Cardiology following /-Schizophrenia:stable /-Legally blind, supportive care /-hypertension, Monitor BP,'s adjust medications as needed /-Hypokalemia; corrected /-Pulmonary hypertension; continue current management /-Dysphagia s/p PEG tube; PEG tubes per protocol /-Severe malnutrition /hypoalbuminemia with FTT: 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, 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/02/19 /-Multiple decubitus, different stages , s/ p colostomy Left 5th finger, stage 4 pressure ulcer Left heel, deep tissue injury Sacrum, stage 4 pressure ulcer POA Continue wound care /-History of sacral osteomyelitis and LE ulcers Completed Antibiotics, contact isolation for ESBL Klebsiella pneumonia on wound culture 01/02/19 /-Anemia of chronic disease s/p 1 unit of prbc , stable /-RUL atelectasis, probably mucous plugging, resolved /-DVT prophylaxis; Lovenox -/ COD status; DNR --Very poor prognosis Dispo; Awaiting SNF placement , difficult to place ,unable to find any NH to take patient. Brief History: Patient is 63-year-old -[place] male patient from [facility] with multiple co-morbidities including blindness, CVA, CHF, PPM/ICD, loop recorder since 2012 that is MRI compatible, IDDM type 2, sepsis left foot ulcer, afib, ESRD with complications on HD TTS, hypertension, AOCD and GERD who presented to the ED with hypotensive after intubation in the emergency room. diagnosed with fluid overload, pleural effusion. Patient has had recurrent admission in the hospital for similar reason and was recently discharged from the hospital following treatment of Severe Sepsis due to Necrotizing Unstagable sacral decubitus ulcer with ostemomylitis, has receiv ed multiple courses of broad spectrum abx. Admitted for Acute hypoxic respiratory failure, status post intubation and ventilatory support, now off vent, on T-piece waiting on placement Hospitalist Physical Patient is on trach and PEG, ON 5L The patient appeared well nourished and normally developed. Vital signs as documented. Head exam is unremarkable. No scleral icterus . Neck is without jugular venous distension, thyromegaly, or carotid bruits. Lungs are clear to auscultation. Cardiac exam reveals regular rate and Rhythm. First and second heart sounds normal. No murmurs, rubs or gallops. Abdominal exam reveals PEG tube in place, colostomy bag in place. Extremities are nonedematous and both femoral and pedal pulses are normal. 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 Subjective Date of service: 05/04/19 Principal diagnosis: Respiratory failure, acute on chronic systolic HF, ESRD Interval history: Patient seen and examined No acute event overnight Patient remained on trach, no family at bedside Discussed with RN and case management about plan of care and discharge planning Objective - Constitutional Vitals: Vital Signs - 12hr 05/04/19 05/04/19 05/04/19 03:15 03:32 07:40 Temperature 98.0 F Pulse Rate Pulse Rate [ 95 H Anterior Bilateral Throughout] Respiratory 18 Rate Respiratory 16 Rate [Anterior Bilateral Throughout] Blood Pressure 115/64 O2 Sat by Pulse 86 Oximetry O2 Sat by Pulse 98 Oximetry [ Assessment] 05/04/19 05/04/19 05/04/19 07:52 07:53 09:23 Temperature Pulse Rate 87 Pulse Rate [ Anterior Bilateral Throughout] Respiratory Rate Respiratory Rate [Anterior Bilateral Throughout] Blood Pressure 129/64 O2 Sat by Pulse 99 70 L Oximetry O2 Sat by Pulse 99 Oximetry [ Assessment] 05/04/19 09:50 Temperature 98.8 F Pulse Rate 94 H Pulse Rate [ Anterior Bilateral Throughout] Respiratory 18 Rate Respiratory Rate [Anterior Bilateral Throughout] Blood Pressure 125/65 O2 Sat by Pulse Oximetry O2 Sat by Pulse Oximetry [ Assessment] - Labs CBC & Chem 7: 05/05/19 05:36 05/04/19 07:30 Labs: Abnormal lab results 05/03/19 05/04/19 05/04/19 Range/Units 18:40 00:06 06:44 WBC (4.5-11.0) K/mm3 RBC (3.65-5.03) M/mm3 Hgb (11.8-15.2) gm/dl Hct (35.5-45.6) % MCV (84-94) fl MCH (28-32) pg MCHC (32-34) % RDW (13.2-15.2) % Plt Count (140-440) K/mm3 Lymph % (Auto) (13.4-35.0) % Lymph # (1.2-5.4) K/mm3 Eos # (0.0-0.4) K/mm3 Seg Neutrophils % (40.0-70.0) % Seg Neutrophils # (1.8-7.7) K/mm3 Chloride (98-107) mmol/L BUN (9-20) mg/dL Creatinine (0.8-1.5) mg/dL Glucose (75-100) mg/dL POC Glucose 167 H 137 H 153 H (70-105) Crossmatch 05/04/19 05/04/19 05/04/19 Range/Units 07:30 07:30 12:55 WBC 15.8 H (4.5-11.0) K/mm3 RBC 2.74 L (3.65-5.03) M/mm3 Hgb 6.7 L (11.8-15.2) gm/dl Hct 22.2 L (35.5-45.6) % MCV 81 L (84-94) fl MCH 24 L (28-32) pg MCHC 30 L (32-34) % RDW 20.4 H (13.2-15.2) % Plt Count 450 H (140-440) K/mm3 Lymph % (Auto) 5.1 L (13.4-35.0) % Lymph # 0.8 L (1.2-5.4) K/mm3 Eos # 0.6 H (0.0-0.4) K/mm3 Seg Neutrophils % 86.3 H (40.0-70.0) % Seg Neutrophils # 13.6 H (1.8-7.7) K/mm3 Chloride 95.2 L (98-107) mmol/L BUN 92 H (9-20) mg/dL Creatinine 4.8 H (0.8-1.5) mg/dL Glucose 139 H (75-100) mg/dL POC Glucose (70-105) Crossmatch See Detail
--- NOTE | 2019-05-04 15:42 | Progress Note ---
Assessment and Plan Imp: 1. Acute encephalopathy, probably metabolic or toxic, resolved 2. A/C systolic CHF 3. Dilated CMP 4. Pulm HTN 5. ESRD 6. RUL atelectasis, probably mucous plugging -> resolved 7. KEON pneumonia, resolved Rec: 1. Chest PT, Duonebs 2. Tolerating Tpiece; monitor; medically I believe his trach should be permanent for airway management but he may require decannulation for placement in a SNF; he is tolerating PMV perfectly at this point; will downsize to size 4 and try capping trials; cuffed trach is noted to be at the bedside for emergency purposes 3. Avoid sedatives 4. DVT and GI PPx 5. TFs per PEG 6. HD per renal 7. Agree w/ DNR as per family wishes although hospice is the most appropriate course for him Await placement No family present Subjective Date of service: 05/04/19 Principal diagnosis: Respiratory failure, acute on chronic systolic HF, ESRD Interval history: No events. Mentation near usual poor baseline. Does respond to basic questions but cannot give hx. On 28% per Tpiece. On HD. Tolerating PSV well per ST notes. Active Medications Albuterol/Ipratropium (Duoneb *Not For Prn Use*) 1 ampul IH TIDRT [facility] Last Admin: 05/04/19 14:02 Dose: Not Given Documented by: Lipase/Protease/Amylase ([place] 10,500 Unit) 1 each FEEDTUBE PRN PRN PRN Reason: For Clogged Feeding Tube Epoetin Solitario (Procrit) 20,000 unit IV UMA PRN PRN Reason: hemodialysis Last Admin: 04/29/19 13:17 Dose: 20,000 unit Documented by: Famotidine (Pepcid) 20 mg PO DAILY [facility] Last Admin: 05/03/19 10:03 Dose: 20 mg Documented by: Insulin Human Regular (Humulin R) 0 units SUB-Q Q6HR [facility]; Protocol Last Admin: 05/04/19 06:41 Dose: 1 units Documented by: Metoprolol Tartrate (Lopressor) 2.5 mg IV Q4HR PRN PRN Reason: Tachycardia Last Admin: 03/15/19 05:15 Dose: 2.5 mg Documented by: Risperidone (Risperdal) 1 mg PO DAILY [facility] Last Admin: 05/03/19 10:04 Dose: 1 mg Documented by: Sertraline HCl (Zoloft) 100 mg PO DAILY [facility] Last Admin: 05/03/19 10:03 Dose: 100 mg Documented by: Simple Syrup (Simple Syrup) 15 ml FEEDTUBE PRN PRN PRN Reason: Hypoglycemia Simple Syrup (Simple Syrup) 30 ml FEEDTUBE PRN PRN PRN Reason: Hypoglycemia Sodium Bicarbonate (Sodium Bicarbonate) 325 mg FEEDTUBE PRN PRN PRN Reason: For Clogged Feeding Tube Sodium Hypochlorite (Dakin's Half Strength) 1 applic TP BID [facility] Last Admin: 05/03/19 22:00 Dose: 1 applicatio Documented by: Objective Vital Signs - 12hr 05/04/19 05/04/19 05/04/19 07:40 07:52 07:53 Temperature Pulse Rate Pulse Rate [ 95 H Anterior Bilateral Throughout] Respiratory Rate Respiratory 16 Rate [Anterior Bilateral Throughout] Blood Pressure O2 Sat by Pulse 99 Oximetry O2 Sat by Pulse 99 Oximetry [ Assessment] 05/04/19 05/04/19 09:23 09:50 Temperature 98.8 F Pulse Rate 87 94 H Pulse Rate [ Anterior Bilateral Throughout] Respiratory 18 Rate Respiratory Rate [Anterior Bilateral Throughout] Blood Pressure 129/64 125/65 O2 Sat by Pulse 70 L Oximetry O2 Sat by Pulse Oximetry [ Assessment] Constitutional: no acute distress, alert Eyes: non-icteric ENT: oropharynx moist Neck: supple Effort: normal Ascultation: Bilateral: diminished breath sounds, other (coarse BS bilaterally) Percussion: Bilateral: not dull Cardiovascular: regular rate and rhythm (no mrg) Gastrointestinal: normoactive bowel sounds, soft, non-tender, non-distended, other (ostomy in place, brown stool) Extremities: no cyanosis, no edema, pink and warm Neurologic: other (mild weakness LUE, o/w nonfocal) Psychiatric: other (unable to assess) CBC and BMP: 05/04/19 07:30 05/04/19 07:30 ABG, PT/INR, D-dimer: ABG POC ABG pH 7.510 (7.35-7.45) H 03/18/19 06:38 ABG pH 7.424 pH Units (7.350-7.450) 03/19/19 04:23 POC ABG pCO2 38.9 (35-45) 03/18/19 06:38 ABG pCO2 48.0 mm Hg 03/19/19 04:23 POC ABG pO2 164 (80-105) H 03/18/19 06:38 ABG pO2 78.3 mm Hg (80.0-90.0) L 03/19/19 04:23 POC ABG HCO3 31.0 (22-26 mml/L) 03/18/19 06:38 POC ABG Total CO2 32 (23-27mmol/L) 03/18/19 06:38 POC ABG O2 Sat 100 03/18/19 06:38 ABG O2 Saturation 97.0 % (95.0-99.0) 03/19/19 04:23 PT/INR, D-dimer PT 16.3 Sec. (12.2-14.9) H 03/01/19 09:39 INR 1.35 (0.87-1.13) H 03/01/19 09:39 D-Dimer 2987.82 ng/mlDDU (0-234) H 02/22/19 05:54 Abnormal lab findings: Abnormal Labs 02/21/19 02/21/19 02/21/19 18:30 18:30 18:30 WBC RBC 3.26 L Hgb 8.8 L Hct 29.0 L MCV MCH 27 L MCHC 30 L RDW 19.1 H Plt Count Lymph % (Auto) 6.1 L [place] % (Auto) Eos % (Auto) Lymph # 0.4 L [place] # Eos # Seg Neutrophils % 86.2 H Seg Neuts % (Manual) Lymphocytes % (Manual) Eosinophils % (Manual) Seg Neutrophils # Lymphocytes # (Manual) Eosinophils # (Manual) PT INR D-Dimer POC ABG pH POC ABG pCO2 POC ABG pO2 ABG pO2 ABG HCO3 ABG Base Excess ABG Hemoglobin Oxyhemoglobin Sodium 133 L Potassium 3.3 L Chloride 93.1 L Carbon Dioxide 33 H BUN Creatinine Glucose 161 H POC Glucose Calcium Phosphorus Magnesium ALT Alkaline Phosphatase 136 H Total Creatine Kinase 37 L CK-MB (CK-2) Rel Index Troponin T 0.192 H* Albumin 2.4 L LDL Cholesterol Direct 36 L PTH Intact Salicylates Acetaminophen Crossmatch 02/21/19 02/21/19 02/21/19 18:42 20:04 20:04 WBC RBC Hgb Hct MCV MCH MCHC RDW Plt Count Lymph % (Auto) [place] % (Auto) Eos % (Auto) Lymph # [place] # Eos # Seg Neutrophils % Seg Neuts % (Manual) Lymphocytes % (Manual) Eosinophils % (Manual) Seg Neutrophils # Lymphocytes # (Manual) Eosinophils # (Manual) PT INR D-Dimer POC ABG pH POC ABG pCO2 56.7 H POC ABG pO2 291 H ABG pO2 ABG HCO3 ABG Base Excess ABG Hemoglobin Oxyhemoglobin Sodium Potassium Chloride Carbon Dioxide BUN Creatinine Glucose POC Glucose Calcium Phosphorus Magnesium ALT Alkaline Phosphatase Total Creatine Kinase CK-MB (CK-2) Rel Index Troponin T Albumin LDL Cholesterol Direct PTH Intact Salicylates < 0.3 L Acetaminophen < 5.0 L Crossmatch 02/21/19 02/22/19 02/22/19 22:35 03:42 03:42 WBC RBC 3.20 L Hgb 8.8 L Hct 27.6 L MCV MCH MCHC RDW 18.9 H Plt Count Lymph % (Auto) 7.4 L [place] % (Auto) Eos % (Auto) Lymph # 0.7 L [place] # Eos # Seg Neutrophils % 84.7 H Seg Neuts % (Manual) Lymphocytes % (Manual) Eosinophils % (Manual) Seg Neutrophils # Lymphocytes # (Manual) Eosinophils # (Manual) PT INR D-Dimer POC ABG pH POC ABG pCO2 POC ABG pO2 ABG pO2 ABG HCO3 ABG Base Excess ABG Hemoglobin Oxyhemoglobin Sodium 134 L Potassium 2.6 L* D Chloride Carbon Dioxide BUN Creatinine Glucose POC Glucose Calcium Phosphorus Magnesium ALT Alkaline Phosphatase Total Creatine Kinase CK-MB (CK-2) Rel Index 5.2 H Troponin T 0.202 H* Albumin LDL Cholesterol Direct PTH Intact Salicylates Acetaminophen Crossmatch 02/22/19 02/22/19 02/22/19 03:42 05:54 09:04 WBC RBC Hgb Hct MCV MCH MCHC RDW Plt Count Lymph % (Auto) [place] % (Auto) Eos % (Auto) Lymph # [place] # Eos # Seg Neutrophils % Seg Neuts % (Manual) Lymphocytes % (Manual) Eosinophils % (Manual) Seg Neutrophils # Lymphocytes # (Manual) Eosinophils # (Manual) PT INR D-Dimer 2987.82 H POC ABG pH 7.451 H POC ABG pCO2 POC ABG pO2 ABG pO2 ABG HCO3 ABG Base Excess ABG Hemoglobin Oxyhemoglobin Sodium Potassium Chloride Carbon Dioxide BUN Creatinine Glucose POC Glucose Calcium Phosphorus Magnesium ALT Alkaline Phosphatase Total Creatine Kinase CK-MB (CK-2) Rel Index 5.7 H Troponin T 0.193 H* Albumin LDL Cholesterol Direct PTH Intact Salicylates Acetaminophen Crossmatch 02/22/19 02/22/19 02/23/19 10:36 23:56 00:52 WBC RBC Hgb Hct MCV MCH MCHC RDW Plt Count Lymph % (Auto) [place] % (Auto) Eos % (Auto) Lymph # [place] # Eos # Seg Neutrophils % Seg Neuts % (Manual) Lymphocytes % (Manual) Eosinophils % (Manual) Seg Neutrophils # Lymphocytes # (Manual) Eosinophils # (Manual) PT INR D-Dimer POC ABG pH POC ABG pCO2 POC ABG pO2 ABG pO2 ABG HCO3 ABG Base Excess ABG Hemoglobin Oxyhemoglobin Sodium Potassium 3.1 L Chloride Carbon Dioxide BUN Creatinine Glucose POC Glucose 58 L 111 H Calcium Phosphorus Magnesium ALT Alkaline Phosphatase Total Creatine Kinase CK-MB (CK-2) Rel Index Troponin T Albumin LDL Cholesterol Direct PTH Intact Salicylates Acetaminophen Crossmatch 02/23/19 02/23/19 02/23/19 05:00 06:35 14:26 WBC RBC Hgb Hct MCV MCH MCHC RDW Plt Count Lymph % (Auto) [place] % (Auto) Eos % (Auto) Lymph # [place] # Eos # Seg Neutrophils % Seg Neuts % (Manual) Lymphocytes % (Manual) Eosinophils % (Manual) Seg Neutrophils # Lymphocytes # (Manual) Eosinophils # (Manual) PT INR D-Dimer POC ABG pH POC ABG pCO2 POC ABG pO2 ABG pO2 ABG HCO3 ABG Base Excess ABG Hemoglobin Oxyhemoglobin Sodium 135 L Potassium 3.1 L Chloride Carbon Dioxide BUN 21 H Creatinine 2.0 H Glucose 57 L POC Glucose 64 L 62 L Calcium Phosphorus Magnesium ALT Alkaline Phosphatase Total Creatine Kinase CK-MB (CK-2) Rel Index Troponin T Albumin LDL Cholesterol Direct PTH Intact Salicylates Acetaminophen Crossmatch 02/24/19 02/24/19 02/24/19 02:11 04:12 04:55 WBC RBC 2.84 L Hgb 7.8 L Hct 24.5 L MCV MCH MCHC RDW 19.5 H Plt Count Lymph % (Auto) [place] % (Auto) Eos % (Auto) Lymph # [place] # Eos # Seg Neutrophils % Seg Neuts % (Manual) Lymphocytes % (Manual) Eosinophils % (Manual) Seg Neutrophils # Lymphocytes # (Manual) Eosinophils # (Manual) PT INR D-Dimer POC ABG pH 7.511 H POC ABG pCO2 33.9 L POC ABG pO2 62 L ABG pO2 ABG HCO3 ABG Base Excess ABG Hemoglobin Oxyhemoglobin Sodium Potassium Chloride Carbon Dioxide BUN Creatinine Glucose POC Glucose 69 L Calcium Phosphorus Magnesium ALT Alkaline Phosphatase Total Creatine Kinase CK-MB (CK-2) Rel Index Troponin T Albumin LDL Cholesterol Direct PTH Intact Salicylates Acetaminophen Crossmatch 02/24/19 02/24/19 02/25/19 04:55 05:41 04:45 WBC RBC Hgb Hct MCV MCH MCHC RDW Plt Count Lymph % (Auto) [place] % (Auto) Eos % (Auto) Lymph # [place] # Eos # Seg Neutrophils % Seg Neuts % (Manual) Lymphocytes % (Manual) Eosinophils % (Manual) Seg Neutrophils # Lymphocytes # (Manual) Eosinophils # (Manual) PT INR D-Dimer POC ABG pH 7.466 H POC ABG pCO2 POC ABG pO2 75 L ABG pO2 ABG HCO3 ABG Base Excess ABG Hemoglobin Oxyhemoglobin Sodium Potassium Chloride Carbon Dioxide BUN Creatinine 1.8 H Glucose 73 L POC Glucose 127 H Calcium Phosphorus Magnesium ALT Alkaline Phosphatase Total Creatine Kinase CK-MB (CK-2) Rel Index Troponin T Albumin LDL Cholesterol Direct PTH Intact Salicylates Acetaminophen Crossmatch 02/25/19 02/25/19 02/26/19 16:34 21:33 03:45 WBC RBC 2.96 L Hgb 8.0 L Hct 25.8 L MCV MCH 27 L MCHC 31 L RDW 20.0 H Plt Count Lymph % (Auto) [place] % (Auto) Eos % (Auto) Lymph # [place] # Eos # Seg Neutrophils % Seg Neuts % (Manual) Lymphocytes % (Manual) Eosinophils % (Manual) Seg Neutrophils # Lymphocytes # (Manual) Eosinophils # (Manual) PT INR D-Dimer POC ABG pH POC ABG pCO2 POC ABG pO2 ABG pO2 ABG HCO3 ABG Base Excess ABG Hemoglobin Oxyhemoglobin Sodium Potassium Chloride Carbon Dioxide BUN Creatinine Glucose POC Glucose 141 H 106 H Calcium Phosphorus Magnesium ALT Alkaline Phosphatase Total Creatine Kinase CK-MB (CK-2) Rel Index Troponin T Albumin LDL Cholesterol Direct PTH Intact Salicylates Acetaminophen Crossmatch 02/26/19 02/26/19 02/26/19 03:45 04:13 07:53 WBC RBC Hgb Hct MCV MCH MCHC RDW Plt Count Lymph % (Auto) [place] % (Auto) Eos % (Auto) Lymph # [place] # Eos # Seg Neutrophils % Seg Neuts % (Manual) Lymphocytes % (Manual) Eosinophils % (Manual) Seg Neutrophils # Lymphocytes # (Manual) Eosinophils # (Manual) PT INR D-Dimer POC ABG pH 7.470 H POC ABG pCO2 POC ABG pO2 ABG pO2 ABG HCO3 ABG Base Excess ABG Hemoglobin Oxyhemoglobin Sodium Potassium Chloride Carbon Dioxide BUN Creatinine 1.8 H Glucose POC Glucose 110 H Calcium Phosphorus Magnesium ALT Alkaline Phosphatase Total Creatine Kinase CK-MB (CK-2) Rel Index Troponin T Albumin LDL Cholesterol Direct PTH Intact Salicylates Acetaminophen Crossmatch 02/26/19 02/26/19 02/27/19 11:56 17:43 00:12 WBC RBC Hgb Hct MCV MCH MCHC RDW Plt Count Lymph % (Auto) [place] % (Auto) Eos % (Auto) Lymph # [place] # Eos # Seg Neutrophils % Seg Neuts % (Manual) Lymphocytes % (Manual) Eosinophils % (Manual) Seg Neutrophils # Lymphocytes # (Manual) Eosinophils # (Manual) PT INR D-Dimer POC ABG pH POC ABG pCO2 POC ABG pO2 ABG pO2 ABG HCO3 ABG Base Excess ABG Hemoglobin Oxyhemoglobin Sodium Potassium Chloride Carbon Dioxide BUN Creatinine Glucose POC Glucose 112 H 127 H 127 H Calcium Phosphorus Magnesium ALT Alkaline Phosphatase Total Creatine Kinase CK-MB (CK-2) Rel Index Troponin T Albumin LDL Cholesterol Direct PTH Intact Salicylates Acetaminophen Crossmatch 02/27/19 02/27/19 02/27/19 04:35 13:15 18:02 WBC RBC Hgb Hct MCV MCH MCHC RDW Plt Count Lymph % (Auto) [place] % (Auto) Eos % (Auto) Lymph # [place] # Eos # Seg Neutrophils % Seg Neuts % (Manual) Lymphocytes % (Manual) Eosinophils % (Manual) Seg Neutrophils # Lymphocytes # (Manual) Eosinophils # (Manual) PT INR D-Dimer POC ABG pH 7.483 H POC ABG pCO2 POC ABG pO2 61 L ABG pO2 ABG HCO3 ABG Base Excess ABG Hemoglobin Oxyhemoglobin Sodium Potassium Chloride Carbon Dioxide BUN Creatinine Glucose POC Glucose 143 H 106 H Calcium Phosphorus Magnesium ALT Alkaline Phosphatase Total Creatine Kinase CK-MB (CK-2) Rel Index Troponin T Albumin LDL Cholesterol Direct PTH Intact Salicylates Acetaminophen Crossmatch 02/28/19 02/28/19 02/28/19 05:50 11:59 17:52 WBC RBC Hgb Hct MCV MCH MCHC RDW Plt Count Lymph % (Auto) [place] % (Auto) Eos % (Auto) Lymph # [place] # Eos # Seg Neutrophils % Seg Neuts % (Manual) Lymphocytes % (Manual) Eosinophils % (Manual) Seg Neutrophils # Lymphocytes # (Manual) Eosinophils # (Manual) PT INR D-Dimer POC ABG pH POC ABG pCO2 POC ABG pO2 ABG pO2 ABG HCO3 ABG Base Excess ABG Hemoglobin Oxyhemoglobin Sodium Potassium Chloride Carbon Dioxide BUN Creatinine Glucose POC Glucose 134 H 128 H 142 H Calcium Phosphorus Magnesium ALT Alkaline Phosphatase Total Creatine Kinase CK-MB (CK-2) Rel Index Troponin T Albumin LDL Cholesterol Direct PTH Intact Salicylates Acetaminophen Crossmatch 02/28/19 03/01/19 03/01/19 23:13 05:40 09:39 WBC RBC Hgb Hct MCV MCH MCHC RDW Plt Count Lymph % (Auto) [place] % (Auto) Eos % (Auto) Lymph # [place] # Eos # Seg Neutrophils % Seg Neuts % (Manual) Lymphocytes % (Manual) Eosinophils % (Manual) Seg Neutrophils # Lymphocytes # (Manual) Eosinophils # (Manual) PT 16.3 H INR 1.35 H D-Dimer POC ABG pH POC ABG pCO2 POC ABG pO2 ABG pO2 ABG HCO3 ABG Base Excess ABG Hemoglobin Oxyhemoglobin Sodium Potassium Chloride Carbon Dioxide BUN Creatinine Glucose POC Glucose 112 H 111 H Calcium Phosphorus Magnesium ALT Alkaline Phosphatase Total Creatine Kinase CK-MB (CK-2) Rel Index Troponin T Albumin LDL Cholesterol Direct PTH Intact Salicylates Acetaminophen Crossmatch 03/01/19 03/01/19 03/01/19 11:56 13:54 17:59 WBC RBC Hgb Hct MCV MCH MCHC RDW Plt Count Lymph % (Auto) [place] % (Auto) Eos % (Auto) Lymph # [place] # Eos # Seg Neutrophils % Seg Neuts % (Manual) Lymphocytes % (Manual) Eosinophils % (Manual) Seg Neutrophils # Lymphocytes # (Manual) Eosinophils # (Manual) PT INR D-Dimer POC ABG pH POC ABG pCO2 POC ABG pO2 ABG pO2 ABG HCO3 ABG Base Excess ABG Hemoglobin Oxyhemoglobin Sodium Potassium Chloride Carbon Dioxide BUN 33 H Creatinine 2.8 H D Glucose 176 H POC Glucose 199 H 147 H Calcium Phosphorus Magnesium ALT Alkaline Phosphatase Total Creatine Kinase CK-MB (CK-2) Rel Index Troponin T Albumin LDL Cholesterol Direct PTH Intact Salicylates Acetaminophen Crossmatch 03/02/19 03/02/19 03/02/19 05:15 05:15 05:15 WBC RBC 2.73 L Hgb 7.4 L Hct 23.0 L MCV MCH 27 L MCHC RDW 19.9 H Plt Count Lymph % (Auto) [place] % (Auto) 7.9 H Eos % (Auto) 7.6 H Lymph # 1.0 L [place] # Eos # 0.5 H Seg Neutrophils % Seg Neuts % (Manual) Lymphocytes % (Manual) Eosinophils % (Manual) Seg Neutrophils # Lymphocytes # (Manual) Eosinophils # (Manual) PT INR D-Dimer POC ABG pH POC ABG pCO2 POC ABG pO2 ABG pO2 ABG HCO3 ABG Base Excess ABG Hemoglobin Oxyhemoglobin Sodium Potassium Chloride Carbon Dioxide BUN 43 H Creatinine 3.2 H Glucose POC Glucose Calcium Phosphorus 2.30 L Magnesium ALT Alkaline Phosphatase Total Creatine Kinase CK-MB (CK-2) Rel Index Troponin T Albumin LDL Cholesterol Direct PTH Intact 267.6 H Salicylates Acetaminophen Crossmatch 03/02/19 03/02/19 03/03/19 12:32 18:20 13:30 WBC RBC Hgb Hct MCV MCH MCHC RDW Plt Count Lymph % (Auto) [place] % (Auto) Eos % (Auto) Lymph # [place] # Eos # Seg Neutrophils % Seg Neuts % (Manual) Lymphocytes % (Manual) Eosinophils % (Manual) Seg Neutrophils # Lymphocytes # (Manual) Eosinophils # (Manual) PT INR D-Dimer POC ABG pH POC ABG pCO2 POC ABG pO2 ABG pO2 ABG HCO3 ABG Base Excess ABG Hemoglobin Oxyhemoglobin Sodium Potassium Chloride 97.3 L Carbon Dioxide BUN 26 H Creatinine 2.2 H Glucose 73 L POC Glucose 111 H 156 H Calcium Phosphorus Magnesium ALT Alkaline Phosphatase Total Creatine Kinase CK-MB (CK-2) Rel Index Troponin T Albumin LDL Cholesterol Direct PTH Intact Salicylates Acetaminophen Crossmatch 03/04/19 03/04/19 03/04/19 00:02 05:37 05:40 WBC RBC 2.63 L Hgb 7.2 L Hct 22.2 L MCV MCH MCHC RDW 20.2 H Plt Count Lymph % (Auto) 10.5 L [place] % (Auto) Eos % (Auto) 4.6 H Lymph # 0.7 L [place] # Eos # Seg Neutrophils % 76.9 H Seg Neuts % (Manual) Lymphocytes % (Manual) Eosinophils % (Manual) Seg Neutrophils # Lymphocytes # (Manual) Eosinophils # (Manual) PT INR D-Dimer POC ABG pH POC ABG pCO2 POC ABG pO2 ABG pO2 ABG HCO3 ABG Base Excess ABG Hemoglobin Oxyhemoglobin Sodium Potassium Chloride Carbon Dioxide BUN Creatinine Glucose POC Glucose 136 H 123 H Calcium Phosphorus Magnesium ALT Alkaline Phosphatase Total Creatine Kinase CK-MB (CK-2) Rel Index Troponin T Albumin LDL Cholesterol Direct PTH Intact Salicylates Acetaminophen Crossmatch 03/04/19 03/04/19 03/04/19 05:40 11:39 23:20 WBC RBC Hgb Hct MCV MCH MCHC RDW Plt Count Lymph % (Auto) [place] % (Auto) Eos % (Auto) Lymph # [place] # Eos # Seg Neutrophils % Seg Neuts % (Manual) Lymphocytes % (Manual) Eosinophils % (Manual) Seg Neutrophils # Lymphocytes # (Manual) Eosinophils # (Manual) PT INR D-Dimer POC ABG pH POC ABG pCO2 POC ABG pO2 ABG pO2 ABG HCO3 ABG Base Excess ABG Hemoglobin Oxyhemoglobin Sodium Potassium Chloride Carbon Dioxide BUN 34 H Creatinine 2.7 H Glucose 114 H POC Glucose 175 H 151 H Calcium Phosphorus Magnesium ALT Alkaline Phosphatase Total Creatine Kinase CK-MB (CK-2) Rel Index Troponin T Albumin LDL Cholesterol Direct PTH Intact Salicylates Acetaminophen Crossmatch 03/05/19 03/05/19 03/05/19 05:37 12:08 17:11 WBC RBC Hgb Hct MCV MCH MCHC RDW Plt Count Lymph % (Auto) [place] % (Auto) Eos % (Auto) Lymph # [place] # Eos # Seg Neutrophils % Seg Neuts % (Manual) Lymphocytes % (Manual) Eosinophils % (Manual) Seg Neutrophils # Lymphocytes # (Manual) Eosinophils # (Manual) PT INR D-Dimer POC ABG pH POC ABG pCO2 POC ABG pO2 ABG pO2 ABG HCO3 ABG Base Excess ABG Hemoglobin Oxyhemoglobin Sodium Potassium Chloride Carbon Dioxide BUN Creatinine Glucose POC Glucose 134 H 135 H 135 H Calcium Phosphorus Magnesium ALT Alkaline Phosphatase Total Creatine Kinase CK-MB (CK-2) Rel Index Troponin T Albumin LDL Cholesterol Direct PTH Intact Salicylates Acetaminophen Crossmatch 03/06/19 03/06/19 03/06/19 00:16 13:05 18:09 WBC RBC Hgb Hct MCV MCH MCHC RDW Plt Count Lymph % (Auto) [place] % (Auto) Eos % (Auto) Lymph # [place] # Eos # Seg Neutrophils % Seg Neuts % (Manual) Lymphocytes % (Manual) Eosinophils % (Manual) Seg Neutrophils # Lymphocytes # (Manual) Eosinophils # (Manual) PT INR D-Dimer POC ABG pH POC ABG pCO2 POC ABG pO2 ABG pO2 ABG HCO3 ABG Base Excess ABG Hemoglobin Oxyhemoglobin Sodium Potassium Chloride Carbon Dioxide BUN Creatinine Glucose POC Glucose 117 H 113 H 131 H Calcium Phosphorus Magnesium ALT Alkaline Phosphatase Total Creatine Kinase CK-MB (CK-2) Rel Index Troponin T Albumin LDL Cholesterol Direct PTH Intact Salicylates Acetaminophen Crossmatch 03/07/19 03/08/19 03/08/19 05:25 05:33 16:00 WBC RBC 2.44 L Hgb 6.6 L Hct 20.8 L MCV MCH 27 L MCHC RDW 19.2 H Plt Count Lymph % (Auto) [place] % (Auto) Eos % (Auto) 8.6 H Lymph # 0.8 L [place] # Eos # 0.5 H Seg Neutrophils % 70.7 H Seg Neuts % (Manual) Lymphocytes % (Manual) Eosinophils % (Manual) Seg Neutrophils # Lymphocytes # (Manual) Eosinophils # (Manual) PT INR D-Dimer POC ABG pH POC ABG pCO2 POC ABG pO2 ABG pO2 ABG HCO3 ABG Base Excess ABG Hemoglobin Oxyhemoglobin Sodium Potassium Chloride Carbon Dioxide BUN Creatinine Glucose POC Glucose 106 H 108 H Calcium Phosphorus Magnesium ALT Alkaline Phosphatase Total Creatine Kinase CK-MB (CK-2) Rel Index Troponin T Albumin LDL Cholesterol Direct PTH Intact Salicylates Acetaminophen Crossmatch 03/08/19 03/08/19 03/08/19 16:00 18:38 Unknown WBC RBC Hgb Hct MCV MCH MCHC RDW Plt Count Lymph % (Auto) [place] % (Auto) Eos % (Auto) Lymph # [place] # Eos # Seg Neutrophils % Seg Neuts % (Manual) Lymphocytes % (Manual) Eosinophils % (Manual) Seg Neutrophils # Lymphocytes # (Manual) Eosinophils # (Manual) PT INR D-Dimer POC ABG pH POC ABG pCO2 POC ABG pO2 ABG pO2 ABG HCO3 ABG Base Excess ABG Hemoglobin Oxyhemoglobin Sodium Potassium 5.4 H D Chloride Carbon Dioxide BUN 47 H Creatinine 2.6 H Glucose POC Glucose 123 H Calcium Phosphorus Magnesium ALT < 5 L Alkaline Phosphatase Total Creatine Kinase CK-MB (CK-2) Rel Index Troponin T Albumin 2.2 L LDL Cholesterol Direct PTH Intact Salicylates Acetaminophen Crossmatch See Detail 03/09/19 03/09/19 03/09/19 10:48 12:28 13:53 WBC RBC 2.85 L Hgb 7.7 L Hct 24.2 L MCV MCH 27 L MCHC RDW 18.7 H Plt Count Lymph % (Auto) [place] % (Auto) Eos % (Auto) Lymph # [place] # Eos # Seg Neutrophils % Seg Neuts % (Manual) Lymphocytes % (Manual) Eosinophils % (Manual) Seg Neutrophils # Lymphocytes # (Manual) Eosinophils # (Manual) PT INR D-Dimer POC ABG pH POC ABG pCO2 POC ABG pO2 ABG pO2 ABG HCO3 30.5 H ABG Base Excess 5.6 H ABG Hemoglobin 8.1 L Oxyhemoglobin 93.8 L Sodium Potassium Chloride Carbon Dioxide BUN Creatinine Glucose POC Glucose 114 H Calcium Phosphorus Magnesium ALT Alkaline Phosphatase Total Creatine Kinase CK-MB (CK-2) Rel Index Troponin T Albumin LDL Cholesterol Direct PTH Intact Salicylates Acetaminophen Crossmatch 03/09/19 03/09/19 03/10/19 17:58 23:53 12:01 WBC RBC Hgb Hct MCV MCH MCHC RDW Plt Count Lymph % (Auto) [place] % (Auto) Eos % (Auto) Lymph # [place] # Eos # Seg Neutrophils % Seg Neuts % (Manual) Lymphocytes % (Manual) Eosinophils % (Manual) Seg Neutrophils # Lymphocytes # (Manual) Eosinophils # (Manual) PT INR D-Dimer POC ABG pH POC ABG pCO2 POC ABG pO2 ABG pO2 ABG HCO3 ABG Base Excess ABG Hemoglobin Oxyhemoglobin Sodium Potassium Chloride Carbon Dioxide BUN Creatinine Glucose POC Glucose 108 H 128 H 144 H Calcium Phosphorus Magnesium ALT Alkaline Phosphatase Total Creatine Kinase CK-MB (CK-2) Rel Index Troponin T Albumin LDL Cholesterol Direct PTH Intact Salicylates Acetaminophen Crossmatch 03/10/19 03/11/19 03/11/19 16:50 00:24 05:02 WBC RBC Hgb Hct MCV MCH MCHC RDW Plt Count Lymph % (Auto) [place] % (Auto) Eos % (Auto) Lymph # [place] # Eos # Seg Neutrophils % Seg Neuts % (Manual) Lymphocytes % (Manual) Eosinophils % (Manual) Seg Neutrophils # Lymphocytes # (Manual) Eosinophils # (Manual) PT INR D-Dimer POC ABG pH POC ABG pCO2 POC ABG pO2 ABG pO2 ABG HCO3 ABG Base Excess ABG Hemoglobin Oxyhemoglobin Sodium Potassium Chloride Carbon Dioxide BUN Creatinine Glucose POC Glucose 147 H 123 H 120 H Calcium Phosphorus Magnesium ALT Alkaline Phosphatase Total Creatine Kinase CK-MB (CK-2) Rel Index Troponin T Albumin LDL Cholesterol Direct PTH Intact Salicylates Acetaminophen Crossmatch 03/11/19 03/11/19 03/11/19 11:56 12:20 18:37 WBC RBC Hgb Hct MCV MCH MCHC RDW Plt Count Lymph % (Auto) [place] % (Auto) Eos % (Auto) Lymph # [place] # Eos # Seg Neutrophils % Seg Neuts % (Manual) Lymphocytes % (Manual) Eosinophils % (Manual) Seg Neutrophils # Lymphocytes # (Manual) Eosinophils # (Manual) PT INR D-Dimer POC ABG pH POC ABG pCO2 POC ABG pO2 ABG pO2 ABG HCO3 ABG Base Excess ABG Hemoglobin Oxyhemoglobin Sodium Potassium 5.2 H Chloride Carbon Dioxide BUN Creatinine Glucose POC Glucose 123 H 125 H Calcium Phosphorus Magnesium ALT Alkaline Phosphatase Total Creatine Kinase CK-MB (CK-2) Rel Index Troponin T Albumin LDL Cholesterol Direct PTH Intact Salicylates Acetaminophen Crossmatch 03/11/19 03/12/19 03/12/19 22:52 12:04 18:25 WBC RBC Hgb Hct MCV MCH MCHC RDW Plt Count Lymph % (Auto) [place] % (Auto) Eos % (Auto) Lymph # [place] # Eos # Seg Neutrophils % Seg Neuts % (Manual) Lymphocytes % (Manual) Eosinophils % (Manual) Seg Neutrophils # Lymphocytes # (Manual) Eosinophils # (Manual) PT INR D-Dimer POC ABG pH POC ABG pCO2 POC ABG pO2 ABG pO2 ABG HCO3 ABG Base Excess ABG Hemoglobin Oxyhemoglobin Sodium Potassium Chloride Carbon Dioxide BUN Creatinine Glucose POC Glucose 110 H 106 H 118 H Calcium Phosphorus Magnesium ALT Alkaline Phosphatase Total Creatine Kinase CK-MB (CK-2) Rel Index Troponin T Albumin LDL Cholesterol Direct PTH Intact Salicylates Acetaminophen Crossmatch 03/12/19 03/13/19 03/13/19 23:36 04:38 04:38 WBC RBC 2.95 L Hgb 7.9 L Hct 24.9 L MCV MCH 27 L MCHC RDW 19.9 H Plt Count Lymph % (Auto) 11.1 L [place] % (Auto) 8.1 H Eos % (Auto) 4.4 H Lymph # 0.9 L [place] # Eos # Seg Neutrophils % 75.4 H Seg Neuts % (Manual) Lymphocytes % (Manual) Eosinophils % (Manual) Seg Neutrophils # Lymphocytes # (Manual) Eosinophils # (Manual) PT INR D-Dimer POC ABG pH POC ABG pCO2 POC ABG pO2 ABG pO2 ABG HCO3 ABG Base Excess ABG Hemoglobin Oxyhemoglobin Sodium 136 L Potassium 5.1 H Chloride 93.8 L Carbon Dioxide BUN 48 H Creatinine 2.7 H Glucose 102 H POC Glucose 115 H Calcium Phosphorus Magnesium ALT < 5 L Alkaline Phosphatase 143 H Total Creatine Kinase CK-MB (CK-2) Rel Index Troponin T Albumin 2.5 L LDL Cholesterol Direct PTH Intact Salicylates Acetaminophen Crossmatch 03/13/19 03/13/19 03/13/19 05:33 13:37 18:03 WBC RBC Hgb Hct MCV MCH MCHC RDW Plt Count Lymph % (Auto) [place] % (Auto) Eos % (Auto) Lymph # [place] # Eos # Seg Neutrophils % Seg Neuts % (Manual) Lymphocytes % (Manual) Eosinophils % (Manual) Seg Neutrophils # Lymphocytes # (Manual) Eosinophils # (Manual) PT INR D-Dimer POC ABG pH POC ABG pCO2 POC ABG pO2 ABG pO2 ABG HCO3 ABG Base Excess ABG Hemoglobin Oxyhemoglobin Sodium Potassium Chloride Carbon Dioxide BUN Creatinine Glucose POC Glucose 140 H 150 H 158 H Calcium Phosphorus Magnesium ALT Alkaline Phosphatase Total Creatine Kinase CK-MB (CK-2) Rel Index Troponin T Albumin LDL Cholesterol Direct PTH Intact Salicylates Acetaminophen Crossmatch 03/13/19 03/14/19 03/14/19 23:32 05:24 12:20 WBC RBC Hgb Hct MCV MCH MCHC RDW Plt Count Lymph % (Auto) [place] % (Auto) Eos % (Auto) Lymph # [place] # Eos # Seg Neutrophils % Seg Neuts % (Manual) Lymphocytes % (Manual) Eosinophils % (Manual) Seg Neutrophils # Lymphocytes # (Manual) Eosinophils # (Manual) PT INR D-Dimer POC ABG pH POC ABG pCO2 POC ABG pO2 ABG pO2 ABG HCO3 ABG Base Excess ABG Hemoglobin Oxyhemoglobin Sodium Potassium Chloride Carbon Dioxide BUN Creatinine Glucose POC Glucose 162 H 146 H 127 H Calcium Phosphorus Magnesium ALT Alkaline Phosphatase Total Creatine Kinase CK-MB (CK-2) Rel Index Troponin T Albumin LDL Cholesterol Direct PTH Intact Salicylates Acetaminophen Crossmatch 03/14/19 03/14/19 03/15/19 18:05 23:57 04:38 WBC 12.8 H RBC 3.11 L Hgb 8.1 L Hct 26.5 L MCV MCH 26 L MCHC 31 L RDW 19.7 H Plt Count Lymph % (Auto) 4.4 L [place] % (Auto) 7.4 H Eos % (Auto) Lymph # 0.6 L [place] # 0.9 H Eos # Seg Neutrophils % 87.3 H Seg Neuts % (Manual) Lymphocytes % (Manual) Eosinophils % (Manual) Seg Neutrophils # 11.2 H Lymphocytes # (Manual) Eosinophils # (Manual) PT INR D-Dimer POC ABG pH POC ABG pCO2 POC ABG pO2 ABG pO2 ABG HCO3 ABG Base Excess ABG Hemoglobin Oxyhemoglobin Sodium Potassium Chloride Carbon Dioxide BUN Creatinine Glucose POC Glucose 142 H 155 H Calcium Phosphorus Magnesium ALT Alkaline Phosphatase Total Creatine Kinase CK-MB (CK-2) Rel Index Troponin T Albumin LDL Cholesterol Direct PTH Intact Salicylates Acetaminophen Crossmatch 03/15/19 03/15/19 03/15/19 04:38 05:31 11:32 WBC RBC Hgb Hct MCV MCH MCHC RDW Plt Count Lymph % (Auto) [place] % (Auto) Eos % (Auto) Lymph # [place] # Eos # Seg Neutrophils % Seg Neuts % (Manual) Lymphocytes % (Manual) Eosinophils % (Manual) Seg Neutrophils # Lymphocytes # (Manual) Eosinophils # (Manual) PT INR D-Dimer POC ABG pH POC ABG pCO2 POC ABG pO2 ABG pO2 ABG HCO3 ABG Base Excess ABG Hemoglobin Oxyhemoglobin Sodium 135 L Potassium Chloride 91.9 L Carbon Dioxide BUN 54 H Creatinine 2.8 H Glucose 128 H POC Glucose 160 H 109 H Calcium 11.1 H Phosphorus Magnesium ALT Alkaline Phosphatase 161 H Total Creatine Kinase CK-MB (CK-2) Rel Index Troponin T Albumin 2.3 L LDL Cholesterol Direct PTH Intact Salicylates Acetaminophen Crossmatch 03/15/19 03/15/19 03/16/19 18:15 23:41 05:40 WBC RBC Hgb Hct MCV MCH MCHC RDW Plt Count Lymph % (Auto) [place] % (Auto) Eos % (Auto) Lymph # [place] # Eos # Seg Neutrophils % Seg Neuts % (Manual) Lymphocytes % (Manual) Eosinophils % (Manual) Seg Neutrophils # Lymphocytes # (Manual) Eosinophils # (Manual) PT INR D-Dimer POC ABG pH POC ABG pCO2 POC ABG pO2 ABG pO2 ABG HCO3 ABG Base Excess ABG Hemoglobin Oxyhemoglobin Sodium Potassium Chloride Carbon Dioxide BUN Creatinine Glucose POC Glucose 151 H 110 H 163 H Calcium Phosphorus Magnesium ALT Alkaline Phosphatase Total Creatine Kinase CK-MB (CK-2) Rel Index Troponin T Albumin LDL Cholesterol Direct PTH Intact Salicylates Acetaminophen Crossmatch 03/16/19 03/16/19 03/16/19 11:55 17:04 23:58 WBC RBC Hgb Hct MCV MCH MCHC RDW Plt Count Lymph % (Auto) [place] % (Auto) Eos % (Auto) Lymph # [place] # Eos # Seg Neutrophils % Seg Neuts % (Manual) Lymphocytes % (Manual) Eosinophils % (Manual) Seg Neutrophils # Lymphocytes # (Manual) Eosinophils # (Manual) PT INR D-Dimer POC ABG pH POC ABG pCO2 POC ABG pO2 ABG pO2 ABG HCO3 ABG Base Excess ABG Hemoglobin Oxyhemoglobin Sodium Potassium Chloride Carbon Dioxide BUN Creatinine Glucose POC Glucose 114 H 147 H 192 H Calcium Phosphorus Magnesium ALT Alkaline Phosphatase Total Creatine Kinase CK-MB (CK-2) Rel Index Troponin T Albumin LDL Cholesterol Direct PTH Intact Salicylates Acetaminophen Crossmatch 03/17/19 03/17/19 03/17/19 05:53 11:17 17:01 WBC RBC Hgb Hct MCV MCH MCHC RDW Plt Count Lymph % (Auto) [place] % (Auto) Eos % (Auto) Lymph # [place] # Eos # Seg Neutrophils % Seg Neuts % (Manual) Lymphocytes % (Manual) Eosinophils % (Manual) Seg Neutrophils # Lymphocytes # (Manual) Eosinophils # (Manual) PT INR D-Dimer POC ABG pH POC ABG pCO2 POC ABG pO2 ABG pO2 ABG HCO3 ABG Base Excess ABG Hemoglobin Oxyhemoglobin Sodium Potassium Chloride Carbon Dioxide BUN Creatinine Glucose POC Glucose 151 H 161 H 152 H Calcium Phosphorus Magnesium ALT Alkaline Phosphatase Total Creatine Kinase CK-MB (CK-2) Rel Index Troponin T Albumin LDL Cholesterol Direct PTH Intact Salicylates Acetaminophen Crossmatch 03/17/19 03/18/19 03/18/19 21:47 04:15 04:44 WBC RBC Hgb Hct MCV MCH MCHC RDW Plt Count Lymph % (Auto) [place] % (Auto) Eos % (Auto) Lymph # [place] # Eos # Seg Neutrophils % Seg Neuts % (Manual) Lymphocytes % (Manual) Eosinophils % (Manual) Seg Neutrophils # Lymphocytes # (Manual) Eosinophils # (Manual) PT INR D-Dimer POC ABG pH POC ABG pCO2 POC ABG pO2 ABG pO2 102.8 H ABG HCO3 28.3 H ABG Base Excess ABG Hemoglobin 10.4 L Oxyhemoglobin 94.5 L Sodium Potassium Chloride Carbon Dioxide BUN Creatinine Glucose POC Glucose 170 H 150 H Calcium Phosphorus Magnesium ALT Alkaline Phosphatase Total Creatine Kinase CK-MB (CK-2) Rel Index Troponin T Albumin LDL Cholesterol Direct PTH Intact Salicylates Acetaminophen Crossmatch 03/18/19 03/18/19 03/18/19 06:38 12:12 17:47 WBC RBC Hgb Hct MCV MCH MCHC RDW Plt Count Lymph % (Auto) [place] % (Auto) Eos % (Auto) Lymph # [place] # Eos # Seg Neutrophils % Seg Neuts % (Manual) Lymphocytes % (Manual) Eosinophils % (Manual) Seg Neutrophils # Lymphocytes # (Manual) Eosinophils # (Manual) PT INR D-Dimer POC ABG pH 7.510 H POC ABG pCO2 POC ABG pO2 164 H ABG pO2 ABG HCO3 ABG Base Excess ABG Hemoglobin Oxyhemoglobin Sodium Potassium Chloride Carbon Dioxide BUN Creatinine Glucose POC Glucose 145 H 149 H Calcium Phosphorus Magnesium ALT Alkaline Phosphatase Total Creatine Kinase CK-MB (CK-2) Rel Index Troponin T Albumin LDL Cholesterol Direct PTH Intact Salicylates Acetaminophen Crossmatch 03/18/19 03/19/19 03/19/19 23:25 01:11 04:23 WBC 15.6 H RBC 2.51 L Hgb 6.5 L Hct 21.6 L MCV MCH 26 L MCHC 30 L RDW 19.8 H Plt Count Lymph % (Auto) 6.0 L [place] % (Auto) Eos % (Auto) Lymph # 0.9 L [place] # 1.0 H Eos # Seg Neutrophils % 85.5 H Seg Neuts % (Manual) Lymphocytes % (Manual) Eosinophils % (Manual) Seg Neutrophils # 13.4 H Lymphocytes # (Manual) Eosinophils # (Manual) PT INR D-Dimer POC ABG pH POC ABG pCO2 POC ABG pO2 ABG pO2 78.3 L ABG HCO3 30.7 H ABG Base Excess 5.8 H ABG Hemoglobin 5.8 L Oxyhemoglobin 94.6 L Sodium Potassium Chloride Carbon Dioxide BUN Creatinine Glucose POC Glucose 190 H Calcium Phosphorus Magnesium ALT Alkaline Phosphatase Total Creatine Kinase CK-MB (CK-2) Rel Index Troponin T Albumin LDL Cholesterol Direct PTH Intact Salicylates Acetaminophen Crossmatch 03/19/19 03/19/19 03/19/19 05:22 05:35 08:54 WBC RBC Hgb Hct MCV MCH MCHC RDW Plt Count Lymph % (Auto) [place] % (Auto) Eos % (Auto) Lymph # [place] # Eos # Seg Neutrophils % Seg Neuts % (Manual) Lymphocytes % (Manual) Eosinophils % (Manual) Seg Neutrophils # Lymphocytes # (Manual) Eosinophils # (Manual) PT INR D-Dimer POC ABG pH POC ABG pCO2 POC ABG pO2 ABG pO2 ABG HCO3 ABG Base Excess ABG Hemoglobin Oxyhemoglobin Sodium Potassium Chloride Carbon Dioxide BUN Creatinine Glucose POC Glucose 167 H Calcium Phosphorus Magnesium ALT Alkaline Phosphatase Total Creatine Kinase CK-MB (CK-2) Rel Index Troponin T Albumin LDL Cholesterol Direct PTH Intact Salicylates Acetaminophen Crossmatch See Detail See Detail 03/19/19 03/19/19 03/19/19 12:36 17:02 23:25 WBC RBC Hgb Hct MCV MCH MCHC RDW Plt Count Lymph % (Auto) [place] % (Auto) Eos % (Auto) Lymph # [place] # Eos # Seg Neutrophils % Seg Neuts % (Manual) Lymphocytes % (Manual) Eosinophils % (Manual) Seg Neutrophils # Lymphocytes # (Manual) Eosinophils # (Manual) PT INR D-Dimer POC ABG pH POC ABG pCO2 POC ABG pO2 ABG pO2 ABG HCO3 ABG Base Excess ABG Hemoglobin Oxyhemoglobin Sodium Potassium Chloride Carbon Dioxide BUN Creatinine Glucose POC Glucose 167 H 135 H 136 H Calcium Phosphorus Magnesium ALT Alkaline Phosphatase Total Creatine Kinase CK-MB (CK-2) Rel Index Troponin T Albumin LDL Cholesterol Direct PTH Intact Salicylates Acetaminophen Crossmatch 03/20/19 03/20/19 03/20/19 05:38 08:40 08:40 WBC RBC 2.61 L Hgb 7.1 L Hct 22.0 L MCV MCH 27 L MCHC RDW 19.6 H Plt Count Lymph % (Auto) 8.2 L [place] % (Auto) 8.3 H Eos % (Auto) 5.7 H Lymph # 0.8 L [place] # Eos # 0.5 H Seg Neutrophils % 77.3 H Seg Neuts % (Manual) Lymphocytes % (Manual) Eosinophils % (Manual) Seg Neutrophils # Lymphocytes # (Manual) Eosinophils # (Manual) PT INR D-Dimer POC ABG pH POC ABG pCO2 POC ABG pO2 ABG pO2 ABG HCO3 ABG Base Excess ABG Hemoglobin Oxyhemoglobin Sodium Potassium Chloride 95.9 L Carbon Dioxide BUN 69 H Creatinine 2.8 H Glucose 115 H POC Glucose 134 H Calcium 10.5 H Phosphorus Magnesium ALT Alkaline Phosphatase Total Creatine Kinase CK-MB (CK-2) Rel Index Troponin T Albumin LDL Cholesterol Direct PTH Intact Salicylates Acetaminophen Crossmatch 03/20/19 03/20/19 03/20/19 12:13 18:04 23:49 WBC RBC Hgb Hct MCV MCH MCHC RDW Plt Count Lymph % (Auto) [place] % (Auto) Eos % (Auto) Lymph # [place] # Eos # Seg Neutrophils % Seg Neuts % (Manual) Lymphocytes % (Manual) Eosinophils % (Manual) Seg Neutrophils # Lymphocytes # (Manual) Eosinophils # (Manual) PT INR D-Dimer POC ABG pH POC ABG pCO2 POC ABG pO2 ABG pO2 ABG HCO3 ABG Base Excess ABG Hemoglobin Oxyhemoglobin Sodium Potassium Chloride Carbon Dioxide BUN Creatinine Glucose POC Glucose 144 H 165 H 172 H Calcium Phosphorus Magnesium ALT Alkaline Phosphatase Total Creatine Kinase CK-MB (CK-2) Rel Index Troponin T Albumin LDL Cholesterol Direct PTH Intact Salicylates Acetaminophen Crossmatch 03/21/19 03/21/19 03/21/19 05:00 06:29 06:30 WBC RBC 2.72 L Hgb 7.4 L Hct 22.9 L MCV MCH 27 L MCHC RDW 19.4 H Plt Count Lymph % (Auto) [place] % (Auto) Eos % (Auto) Lymph # [place] # Eos # Seg Neutrophils % Seg Neuts % (Manual) 81.0 H Lymphocytes % (Manual) 8.0 L Eosinophils % (Manual) 8.0 H Seg Neutrophils # Lymphocytes # (Manual) 0.7 L Eosinophils # (Manual) 0.7 H PT INR D-Dimer POC ABG pH POC ABG pCO2 POC ABG pO2 ABG pO2 ABG HCO3 ABG Base Excess ABG Hemoglobin Oxyhemoglobin Sodium Potassium Chloride Carbon Dioxide 33 H BUN 43 H Creatinine 1.7 H Glucose 145 H POC Glucose 156 H Calcium Phosphorus Magnesium ALT Alkaline Phosphatase 212 H Total Creatine Kinase CK-MB (CK-2) Rel Index Troponin T Albumin 2.2 L LDL Cholesterol Direct PTH Intact Salicylates Acetaminophen Crossmatch 03/21/19 03/21/19 03/22/19 12:02 18:07 00:21 WBC RBC Hgb Hct MCV MCH MCHC RDW Plt Count Lymph % (Auto) [place] % (Auto) Eos % (Auto) Lymph # [place] # Eos # Seg Neutrophils % Seg Neuts % (Manual) Lymphocytes % (Manual) Eosinophils % (Manual) Seg Neutrophils # Lymphocytes # (Manual) Eosinophils # (Manual) PT INR D-Dimer POC ABG pH POC ABG pCO2 POC ABG pO2 ABG pO2 ABG HCO3 ABG Base Excess ABG Hemoglobin Oxyhemoglobin Sodium Potassium Chloride Carbon Dioxide BUN Creatinine Glucose POC Glucose 163 H 144 H 153 H Calcium Phosphorus Magnesium ALT Alkaline Phosphatase Total Creatine Kinase CK-MB (CK-2) Rel Index Troponin T Albumin LDL Cholesterol Direct PTH Intact Salicylates Acetaminophen Crossmatch 03/22/19 03/22/19 03/22/19 05:23 05:23 05:31 WBC RBC 2.58 L Hgb 7.1 L Hct 21.8 L MCV MCH 27 L MCHC RDW 19.2 H Plt Count Lymph % (Auto) [place] % (Auto) Eos % (Auto) Lymph # [place] # Eos # Seg Neutrophils % Seg Neuts % (Manual) Lymphocytes % (Manual) Eosinophils % (Manual) Seg Neutrophils # Lymphocytes # (Manual) Eosinophils # (Manual) PT INR D-Dimer POC ABG pH POC ABG pCO2 POC ABG pO2 ABG pO2 ABG HCO3 ABG Base Excess ABG Hemoglobin Oxyhemoglobin Sodium 147 H Potassium Chloride Carbon Dioxide BUN 68 H Creatinine 2.5 H Glucose POC Glucose 116 H Calcium 10.3 H Phosphorus Magnesium ALT Alkaline Phosphatase Total Creatine Kinase CK-MB (CK-2) Rel Index Troponin T Albumin LDL Cholesterol Direct PTH Intact Salicylates Acetaminophen Crossmatch 03/22/19 03/22/19 03/22/19 08:48 12:37 17:35 WBC RBC Hgb Hct MCV MCH MCHC RDW Plt Count Lymph % (Auto) [place] % (Auto) Eos % (Auto) Lymph # [place] # Eos # Seg Neutrophils % Seg Neuts % (Manual) Lymphocytes % (Manual) Eosinophils % (Manual) Seg Neutrophils # Lymphocytes # (Manual) Eosinophils # (Manual) PT INR D-Dimer POC ABG pH POC ABG pCO2 POC ABG pO2 ABG pO2 ABG HCO3 ABG Base Excess ABG Hemoglobin Oxyhemoglobin Sodium Potassium Chloride Carbon Dioxide BUN Creatinine Glucose POC Glucose 143 H 155 H Calcium Phosphorus Magnesium ALT Alkaline Phosphatase Total Creatine Kinase CK-MB (CK-2) Rel Index Troponin T Albumin LDL Cholesterol Direct PTH Intact Salicylates Acetaminophen Crossmatch See Detail 03/23/19 03/23/19 03/23/19 00:07 04:00 04:00 WBC 11.2 H RBC 2.32 L Hgb 6.4 L Hct 19.7 L* MCV MCH MCHC RDW 19.4 H Plt Count Lymph % (Auto) [place] % (Auto) Eos % (Auto) Lymph # [place] # Eos # Seg Neutrophils % Seg Neuts % (Manual) Lymphocytes % (Manual) Eosinophils % (Manual) Seg Neutrophils # Lymphocytes # (Manual) Eosinophils # (Manual) PT INR D-Dimer POC ABG pH POC ABG pCO2 POC ABG pO2 ABG pO2 ABG HCO3 ABG Base Excess ABG Hemoglobin Oxyhemoglobin Sodium 147 H Potassium 5.2 H Chloride Carbon Dioxide BUN 86 H Creatinine 3.2 H Glucose 128 H POC Glucose 135 H Calcium 10.3 H Phosphorus Magnesium ALT Alkaline Phosphatase Total Creatine Kinase CK-MB (CK-2) Rel Index Troponin T Albumin LDL Cholesterol Direct PTH Intact Salicylates Acetaminophen Crossmatch 03/23/19 03/23/19 03/23/19 05:21 11:36 11:36 WBC RBC Hgb 7.9 L Hct 25.0 L MCV MCH MCHC RDW Plt Count Lymph % (Auto) [place] % (Auto) Eos % (Auto) Lymph # [place] # Eos # Seg Neutrophils % Seg Neuts % (Manual) Lymphocytes % (Manual) Eosinophils % (Manual) Seg Neutrophils # Lymphocytes # (Manual) Eosinophils # (Manual) PT INR D-Dimer POC ABG pH POC ABG pCO2 POC ABG pO2 ABG pO2 ABG HCO3 ABG Base Excess ABG Hemoglobin Oxyhemoglobin Sodium Potassium Chloride Carbon Dioxide BUN Creatinine Glucose POC Glucose 132 H 147 H Calcium Phosphorus Magnesium ALT Alkaline Phosphatase Total Creatine Kinase CK-MB (CK-2) Rel Index Troponin T Albumin LDL Cholesterol Direct PTH Intact Salicylates Acetaminophen Crossmatch 03/23/19 03/24/19 03/24/19 17:31 01:22 04:20 WBC 12.2 H RBC 3.05 L Hgb 8.3 L Hct 25.9 L MCV MCH 27 L MCHC RDW 18.7 H Plt Count Lymph % (Auto) [place] % (Auto) Eos % (Auto) Lymph # [place] # Eos # Seg Neutrophils % Seg Neuts % (Manual) Lymphocytes % (Manual) Eosinophils % (Manual) Seg Neutrophils # Lymphocytes # (Manual) Eosinophils # (Manual) PT INR D-Dimer POC ABG pH POC ABG pCO2 POC ABG pO2 ABG pO2 ABG HCO3 ABG Base Excess ABG Hemoglobin Oxyhemoglobin Sodium Potassium Chloride Carbon Dioxide BUN Creatinine Glucose POC Glucose 182 H 113 H Calcium Phosphorus Magnesium ALT Alkaline Phosphatase Total Creatine Kinase CK-MB (CK-2) Rel Index Troponin T Albumin LDL Cholesterol Direct PTH Intact Salicylates Acetaminophen Crossmatch 03/24/19 03/24/19 03/24/19 04:20 11:59 18:14 WBC RBC Hgb Hct MCV MCH MCHC RDW Plt Count Lymph % (Auto) [place] % (Auto) Eos % (Auto) Lymph # [place] # Eos # Seg Neutrophils % Seg Neuts % (Manual) Lymphocytes % (Manual) Eosinophils % (Manual) Seg Neutrophils # Lymphocytes # (Manual) Eosinophils # (Manual) PT INR D-Dimer POC ABG pH POC ABG pCO2 POC ABG pO2 ABG pO2 ABG HCO3 ABG Base Excess ABG Hemoglobin Oxyhemoglobin Sodium Potassium Chloride 94.8 L Carbon Dioxide 32 H BUN 53 H Creatinine 2.3 H Glucose POC Glucose 163 H 134 H Calcium Phosphorus Magnesium ALT Alkaline Phosphatase Total Creatine Kinase CK-MB (CK-2) Rel Index Troponin T Albumin LDL Cholesterol Direct PTH Intact Salicylates Acetaminophen Crossmatch 03/24/19 03/25/19 03/25/19 23:15 05:52 12:02 WBC RBC Hgb Hct MCV MCH MCHC RDW Plt Count Lymph % (Auto) [place] % (Auto) Eos % (Auto) Lymph # [place] # Eos # Seg Neutrophils % Seg Neuts % (Manual) Lymphocytes % (Manual) Eosinophils % (Manual) Seg Neutrophils # Lymphocytes # (Manual) Eosinophils # (Manual) PT INR D-Dimer POC ABG pH POC ABG pCO2 POC ABG pO2 ABG pO2 ABG HCO3 ABG Base Excess ABG Hemoglobin Oxyhemoglobin Sodium Potassium Chloride Carbon Dioxide BUN Creatinine Glucose POC Glucose 129 H 123 H 125 H Calcium Phosphorus Magnesium ALT Alkaline Phosphatase Total Creatine Kinase CK-MB (CK-2) Rel Index Troponin T Albumin LDL Cholesterol Direct PTH Intact Salicylates Acetaminophen Crossmatch 03/25/19 03/26/19 03/26/19 17:27 00:30 05:35 WBC RBC 3.01 L Hgb 8.1 L Hct 25.7 L MCV MCH 27 L MCHC RDW 19.2 H Plt Count Lymph % (Auto) 11.4 L [place] % (Auto) Eos % (Auto) 8.0 H Lymph # 1.0 L [place] # Eos # 0.7 H Seg Neutrophils % 73.9 H Seg Neuts % (Manual) Lymphocytes % (Manual) Eosinophils % (Manual) Seg Neutrophils # Lymphocytes # (Manual) Eosinophils # (Manual) PT INR D-Dimer POC ABG pH POC ABG pCO2 POC ABG pO2 ABG pO2 ABG HCO3 ABG Base Excess ABG Hemoglobin Oxyhemoglobin Sodium Potassium Chloride Carbon Dioxide BUN Creatinine Glucose POC Glucose 130 H 129 H Calcium Phosphorus Magnesium ALT Alkaline Phosphatase Total Creatine Kinase CK-MB (CK-2) Rel Index Troponin T Albumin LDL Cholesterol Direct PTH Intact Salicylates Acetaminophen Crossmatch 03/26/19 03/26/19 03/26/19 05:35 05:45 12:16 WBC RBC Hgb Hct MCV MCH MCHC RDW Plt Count Lymph % (Auto) [place] % (Auto) Eos % (Auto) Lymph # [place] # Eos # Seg Neutrophils % Seg Neuts % (Manual) Lymphocytes % (Manual) Eosinophils % (Manual) Seg Neutrophils # Lymphocytes # (Manual) Eosinophils # (Manual) PT INR D-Dimer POC ABG pH POC ABG pCO2 POC ABG pO2 ABG pO2 ABG HCO3 ABG Base Excess ABG Hemoglobin Oxyhemoglobin Sodium Potassium Chloride 94.9 L Carbon Dioxide 31 H BUN 44 H Creatinine 2.0 H Glucose POC Glucose 118 H 107 H Calcium Phosphorus Magnesium ALT Alkaline Phosphatase Total Creatine Kinase CK-MB (CK-2) Rel Index Troponin T Albumin LDL Cholesterol Direct PTH Intact Salicylates Acetaminophen Crossmatch 03/26/19 03/27/19 03/27/19 17:56 00:36 05:37 WBC RBC Hgb Hct MCV MCH MCHC RDW Plt Count Lymph % (Auto) [place] % (Auto) Eos % (Auto) Lymph # [place] # Eos # Seg Neutrophils % Seg Neuts % (Manual) Lymphocytes % (Manual) Eosinophils % (Manual) Seg Neutrophils # Lymphocytes # (Manual) Eosinophils # (Manual) PT INR D-Dimer POC ABG pH POC ABG pCO2 POC ABG pO2 ABG pO2 ABG HCO3 ABG Base Excess ABG Hemoglobin Oxyhemoglobin Sodium Potassium Chloride Carbon Dioxide BUN Creatinine Glucose POC Glucose 107 H 110 H 122 H Calcium Phosphorus Magnesium ALT Alkaline Phosphatase Total Creatine Kinase CK-MB (CK-2) Rel Index Troponin T Albumin LDL Cholesterol Direct PTH Intact Salicylates Acetaminophen Crossmatch 03/27/19 03/27/19 03/28/19 11:22 18:00 05:17 WBC RBC Hgb Hct MCV MCH MCHC RDW Plt Count Lymph % (Auto) [place] % (Auto) Eos % (Auto) Lymph # [place] # Eos # Seg Neutrophils % Seg Neuts % (Manual) Lymphocytes % (Manual) Eosinophils % (Manual) Seg Neutrophils # Lymphocytes # (Manual) Eosinophils # (Manual) PT INR D-Dimer POC ABG pH POC ABG pCO2 POC ABG pO2 ABG pO2 ABG HCO3 ABG Base Excess ABG Hemoglobin Oxyhemoglobin Sodium Potassium Chloride Carbon Dioxide BUN Creatinine Glucose POC Glucose 120 H 111 H 107 H Calcium Phosphorus Magnesium ALT Alkaline Phosphatase Total Creatine Kinase CK-MB (CK-2) Rel Index Troponin T Albumin LDL Cholesterol Direct PTH Intact Salicylates Acetaminophen Crossmatch 03/28/19 03/28/19 03/29/19 12:27 18:08 05:47 WBC RBC Hgb Hct MCV MCH MCHC RDW Plt Count Lymph % (Auto) [place] % (Auto) Eos % (Auto) Lymph # [place] # Eos # Seg Neutrophils % Seg Neuts % (Manual) Lymphocytes % (Manual) Eosinophils % (Manual) Seg Neutrophils # Lymphocytes # (Manual) Eosinophils # (Manual) PT INR D-Dimer POC ABG pH POC ABG pCO2 POC ABG pO2 ABG pO2 ABG HCO3 ABG Base Excess ABG Hemoglobin Oxyhemoglobin Sodium Potassium Chloride Carbon Dioxide BUN Creatinine Glucose POC Glucose 114 H 121 H 112 H Calcium Phosphorus Magnesium ALT Alkaline Phosphatase Total Creatine Kinase CK-MB (CK-2) Rel Index Troponin T Albumin LDL Cholesterol Direct PTH Intact Salicylates Acetaminophen Crossmatch 03/29/19 03/29/19 03/30/19 12:14 18:08 00:31 WBC RBC Hgb Hct MCV MCH MCHC RDW Plt Count Lymph % (Auto) [place] % (Auto) Eos % (Auto) Lymph # [place] # Eos # Seg Neutrophils % Seg Neuts % (Manual) Lymphocytes % (Manual) Eosinophils % (Manual) Seg Neutrophils # Lymphocytes # (Manual) Eosinophils # (Manual) PT INR D-Dimer POC ABG pH POC ABG pCO2 POC ABG pO2 ABG pO2 ABG HCO3 ABG Base Excess ABG Hemoglobin Oxyhemoglobin Sodium Potassium Chloride Carbon Dioxide BUN Creatinine Glucose POC Glucose 117 H 140 H 114 H Calcium Phosphorus Magnesium ALT Alkaline Phosphatase Total Creatine Kinase CK-MB (CK-2) Rel Index Troponin T Albumin LDL Cholesterol Direct PTH Intact Salicylates Acetaminophen Crossmatch 03/30/19 03/30/19 03/30/19 10:13 10:13 23:53 WBC RBC 2.81 L Hgb 7.7 L Hct 24.3 L MCV MCH 27 L MCHC RDW 19.0 H Plt Count Lymph % (Auto) 12.2 L [place] % (Auto) Eos % (Auto) 7.9 H Lymph # 1.0 L [place] # Eos # 0.6 H Seg Neutrophils % 72.3 H Seg Neuts % (Manual) Lymphocytes % (Manual) Eosinophils % (Manual) Seg Neutrophils # Lymphocytes # (Manual) Eosinophils # (Manual) PT INR D-Dimer POC ABG pH POC ABG pCO2 POC ABG pO2 ABG pO2 ABG HCO3 ABG Base Excess ABG Hemoglobin Oxyhemoglobin Sodium Potassium 5.1 H Chloride 96.5 L Carbon Dioxide BUN 73 H Creatinine 3.9 H D Glucose POC Glucose 114 H Calcium 10.3 H Phosphorus 6.30 H Magnesium 2.70 H ALT Alkaline Phosphatase 185 H Total Creatine Kinase CK-MB (CK-2) Rel Index Troponin T Albumin 2.6 L LDL Cholesterol Direct PTH Intact Salicylates Acetaminophen Crossmatch 03/31/19 03/31/19 03/31/19 05:45 10:26 10:26 WBC RBC 3.01 L Hgb 8.2 L Hct 26.4 L MCV MCH 27 L MCHC 31 L RDW 20.3 H Plt Count Lymph % (Auto) 13.3 L [place] % (Auto) Eos % (Auto) 7.2 H Lymph # 1.1 L [place] # Eos # 0.6 H Seg Neutrophils % 72.1 H Seg Neuts % (Manual) Lymphocytes % (Manual) Eosinophils % (Manual) Seg Neutrophils # Lymphocytes # (Manual) Eosinophils # (Manual) PT INR D-Dimer POC ABG pH POC ABG pCO2 POC ABG pO2 ABG pO2 ABG HCO3 ABG Base Excess ABG Hemoglobin Oxyhemoglobin Sodium Potassium Chloride 96.9 L Carbon Dioxide 33 H BUN 37 H Creatinine 2.4 H Glucose POC Glucose 108 H Calcium 10.3 H Phosphorus Magnesium ALT Alkaline Phosphatase Total Creatine Kinase CK-MB (CK-2) Rel Index Troponin T Albumin LDL Cholesterol Direct PTH Intact Salicylates Acetaminophen Crossmatch 03/31/19 04/01/19 04/01/19 12:38 05:48 12:06 WBC RBC Hgb Hct MCV MCH MCHC RDW Plt Count Lymph % (Auto) [place] % (Auto) Eos % (Auto) Lymph # [place] # Eos # Seg Neutrophils % Seg Neuts % (Manual) Lymphocytes % (Manual) Eosinophils % (Manual) Seg Neutrophils # Lymphocytes # (Manual) Eosinophils # (Manual) PT INR D-Dimer POC ABG pH POC ABG pCO2 POC ABG pO2 ABG pO2 ABG HCO3 ABG Base Excess ABG Hemoglobin Oxyhemoglobin Sodium Potassium Chloride Carbon Dioxide BUN Creatinine Glucose POC Glucose 108 H 114 H 111 H Calcium Phosphorus Magnesium ALT Alkaline Phosphatase Total Creatine Kinase CK-MB (CK-2) Rel Index Troponin T Albumin LDL Cholesterol Direct PTH Intact Salicylates Acetaminophen Crossmatch 04/01/19 04/02/19 04/04/19 18:24 00:36 23:55 WBC RBC Hgb Hct MCV MCH MCHC RDW Plt Count Lymph % (Auto) [place] % (Auto) Eos % (Auto) Lymph # [place] # Eos # Seg Neutrophils % Seg Neuts % (Manual) Lymphocytes % (Manual) Eosinophils % (Manual) Seg Neutrophils # Lymphocytes # (Manual) Eosinophils # (Manual) PT INR D-Dimer POC ABG pH POC ABG pCO2 POC ABG pO2 ABG pO2 ABG HCO3 ABG Base Excess ABG Hemoglobin Oxyhemoglobin Sodium Potassium Chloride Carbon Dioxide BUN Creatinine Glucose POC Glucose 113 H 117 H 109 H Calcium Phosphorus Magnesium ALT Alkaline Phosphatase Total Creatine Kinase CK-MB (CK-2) Rel Index Troponin T Albumin LDL Cholesterol Direct PTH Intact Salicylates Acetaminophen Crossmatch 04/06/19 04/06/19 04/06/19 00:11 06:02 23:30 WBC RBC Hgb Hct MCV MCH MCHC RDW Plt Count Lymph % (Auto) [place] % (Auto) Eos % (Auto) Lymph # [place] # Eos # Seg Neutrophils % Seg Neuts % (Manual) Lymphocytes % (Manual) Eosinophils % (Manual) Seg Neutrophils # Lymphocytes # (Manual) Eosinophils # (Manual) PT INR D-Dimer POC ABG pH POC ABG pCO2 POC ABG pO2 ABG pO2 ABG HCO3 ABG Base Excess ABG Hemoglobin Oxyhemoglobin Sodium Potassium Chloride Carbon Dioxide BUN Creatinine Glucose POC Glucose 116 H 112 H 112 H Calcium Phosphorus Magnesium ALT Alkaline Phosphatase Total Creatine Kinase CK-MB (CK-2) Rel Index Troponin T Albumin LDL Cholesterol Direct PTH Intact Salicylates Acetaminophen Crossmatch 04/08/19 04/08/19 04/08/19 02:23 06:19 13:01 WBC RBC Hgb Hct MCV MCH MCHC RDW Plt Count Lymph % (Auto) [place] % (Auto) Eos % (Auto) Lymph # [place] # Eos # Seg Neutrophils % Seg Neuts % (Manual) Lymphocytes % (Manual) Eosinophils % (Manual) Seg Neutrophils # Lymphocytes # (Manual) Eosinophils # (Manual) PT INR D-Dimer POC ABG pH POC ABG pCO2 POC ABG pO2 ABG pO2 ABG HCO3 ABG Base Excess ABG Hemoglobin Oxyhemoglobin Sodium Potassium Chloride Carbon Dioxide BUN Creatinine Glucose POC Glucose 144 H 126 H 118 H Calcium Phosphorus Magnesium ALT Alkaline Phosphatase Total Creatine Kinase CK-MB (CK-2) Rel Index Troponin T Albumin LDL Cholesterol Direct PTH Intact Salicylates Acetaminophen Crossmatch 04/08/19 04/09/19 04/10/19 23:28 05:52 06:34 WBC RBC Hgb Hct MCV MCH MCHC RDW Plt Count Lymph % (Auto) [place] % (Auto) Eos % (Auto) Lymph # [place] # Eos # Seg Neutrophils % Seg Neuts % (Manual) Lymphocytes % (Manual) Eosinophils % (Manual) Seg Neutrophils # Lymphocytes # (Manual) Eosinophils # (Manual) PT INR D-Dimer POC ABG pH POC ABG pCO2 POC ABG pO2 ABG pO2 ABG HCO3 ABG Base Excess ABG Hemoglobin Oxyhemoglobin Sodium Potassium Chloride Carbon Dioxide BUN Creatinine Glucose POC Glucose 119 H 116 H 114 H Calcium Phosphorus Magnesium ALT Alkaline Phosphatase Total Creatine Kinase CK-MB (CK-2) Rel Index Troponin T Albumin LDL Cholesterol Direct PTH Intact Salicylates Acetaminophen Crossmatch 04/10/19 04/10/19 04/11/19 12:34 18:59 00:36 WBC RBC Hgb Hct MCV MCH MCHC RDW Plt Count Lymph % (Auto) [place] % (Auto) Eos % (Auto) Lymph # [place] # Eos # Seg Neutrophils % Seg Neuts % (Manual) Lymphocytes % (Manual) Eosinophils % (Manual) Seg Neutrophils # Lymphocytes # (Manual) Eosinophils # (Manual) PT INR D-Dimer POC ABG pH POC ABG pCO2 POC ABG pO2 ABG pO2 ABG HCO3 ABG Base Excess ABG Hemoglobin Oxyhemoglobin Sodium Potassium Chloride Carbon Dioxide BUN Creatinine Glucose POC Glucose 112 H 109 H 124 H Calcium Phosphorus Magnesium ALT Alkaline Phosphatase Total Creatine Kinase CK-MB (CK-2) Rel Index Troponin T Albumin LDL Cholesterol Direct PTH Intact Salicylates Acetaminophen Crossmatch 04/11/19 04/11/19 04/12/19 08:01 17:25 02:18 WBC RBC Hgb Hct MCV MCH MCHC RDW Plt Count Lymph % (Auto) [place] % (Auto) Eos % (Auto) Lymph # [place] # Eos # Seg Neutrophils % Seg Neuts % (Manual) Lymphocytes % (Manual) Eosinophils % (Manual) Seg Neutrophils # Lymphocytes # (Manual) Eosinophils # (Manual) PT INR D-Dimer POC ABG pH POC ABG pCO2 POC ABG pO2 ABG pO2 ABG HCO3 ABG Base Excess ABG Hemoglobin Oxyhemoglobin Sodium Potassium Chloride Carbon Dioxide BUN Creatinine Glucose POC Glucose 118 H 106 H 125 H Calcium Phosphorus Magnesium ALT Alkaline Phosphatase Total Creatine Kinase CK-MB (CK-2) Rel Index Troponin T Albumin LDL Cholesterol Direct PTH Intact Salicylates Acetaminophen Crossmatch 04/12/19 04/12/19 04/12/19 06:24 12:22 17:13 WBC RBC Hgb Hct MCV MCH MCHC RDW Plt Count Lymph % (Auto) [place] % (Auto) Eos % (Auto) Lymph # [place] # Eos # Seg Neutrophils % Seg Neuts % (Manual) Lymphocytes % (Manual) Eosinophils % (Manual) Seg Neutrophils # Lymphocytes # (Manual) Eosinophils # (Manual) PT INR D-Dimer POC ABG pH POC ABG pCO2 POC ABG pO2 ABG pO2 ABG HCO3 ABG Base Excess ABG Hemoglobin Oxyhemoglobin Sodium Potassium Chloride Carbon Dioxide BUN Creatinine Glucose POC Glucose 128 H 114 H 110 H Calcium Phosphorus Magnesium ALT Alkaline Phosphatase Total Creatine Kinase CK-MB (CK-2) Rel Index Troponin T Albumin LDL Cholesterol Direct PTH Intact Salicylates Acetaminophen Crossmatch 04/13/19 04/13/19 04/13/19 06:59 07:31 07:31 WBC RBC 3.34 L Hgb 8.9 L Hct 28.6 L MCV MCH 27 L MCHC 31 L RDW 19.6 H Plt Count Lymph % (Auto) [place] % (Auto) Eos % (Auto) Lymph # [place] # Eos # Seg Neutrophils % Seg Neuts % (Manual) Lymphocytes % (Manual) Eosinophils % (Manual) Seg Neutrophils # Lymphocytes # (Manual) Eosinophils # (Manual) PT INR D-Dimer POC ABG pH POC ABG pCO2 POC ABG pO2 ABG pO2 ABG HCO3 ABG Base Excess ABG Hemoglobin Oxyhemoglobin Sodium Potassium Chloride 96.4 L Carbon Dioxide 33 H BUN 66 H Creatinine 4.5 H Glucose 103 H POC Glucose 107 H Calcium Phosphorus Magnesium ALT Alkaline Phosphatase Total Creatine Kinase CK-MB (CK-2) Rel Index Troponin T Albumin LDL Cholesterol Direct PTH Intact Salicylates Acetaminophen Crossmatch 04/13/19 04/14/19 04/14/19 23:43 05:50 13:07 WBC RBC Hgb Hct MCV MCH MCHC RDW Plt Count Lymph % (Auto) [place] % (Auto) Eos % (Auto) Lymph # [place] # Eos # Seg Neutrophils % Seg Neuts % (Manual) Lymphocytes % (Manual) Eosinophils % (Manual) Seg Neutrophils # Lymphocytes # (Manual) Eosinophils # (Manual) PT INR D-Dimer POC ABG pH POC ABG pCO2 POC ABG pO2 ABG pO2 ABG HCO3 ABG Base Excess ABG Hemoglobin Oxyhemoglobin Sodium Potassium Chloride Carbon Dioxide BUN Creatinine Glucose POC Glucose 119 H 112 H 112 H Calcium Phosphorus Magnesium ALT Alkaline Phosphatase Total Creatine Kinase CK-MB (CK-2) Rel Index Troponin T Albumin LDL Cholesterol Direct PTH Intact Salicylates Acetaminophen Crossmatch 04/14/19 04/15/19 04/15/19 18:35 01:18 05:17 WBC RBC Hgb Hct MCV MCH MCHC RDW Plt Count Lymph % (Auto) [place] % (Auto) Eos % (Auto) Lymph # [place] # Eos # Seg Neutrophils % Seg Neuts % (Manual) Lymphocytes % (Manual) Eosinophils % (Manual) Seg Neutrophils # Lymphocytes # (Manual) Eosinophils # (Manual) PT INR D-Dimer POC ABG pH POC ABG pCO2 POC ABG pO2 ABG pO2 ABG HCO3 ABG Base Excess ABG Hemoglobin Oxyhemoglobin Sodium Potassium Chloride Carbon Dioxide BUN Creatinine Glucose POC Glucose 114 H 114 H 114 H Calcium Phosphorus Magnesium ALT Alkaline Phosphatase Total Creatine Kinase CK-MB (CK-2) Rel Index Troponin T Albumin LDL Cholesterol Direct PTH Intact Salicylates Acetaminophen Crossmatch 04/15/19 04/15/19 04/16/19 11:50 23:39 05:41 WBC RBC Hgb Hct MCV MCH MCHC RDW Plt Count Lymph % (Auto) [place] % (Auto) Eos % (Auto) Lymph # [place] # Eos # Seg Neutrophils % Seg Neuts % (Manual) Lymphocytes % (Manual) Eosinophils % (Manual) Seg Neutrophils # Lymphocytes # (Manual) Eosinophils # (Manual) PT INR D-Dimer POC ABG pH POC ABG pCO2 POC ABG pO2 ABG pO2 ABG HCO3 ABG Base Excess ABG Hemoglobin Oxyhemoglobin Sodium Potassium Chloride Carbon Dioxide BUN Creatinine Glucose POC Glucose 109 H 115 H 125 H Calcium Phosphorus Magnesium ALT Alkaline Phosphatase Total Creatine Kinase CK-MB (CK-2) Rel Index Troponin T Albumin LDL Cholesterol Direct PTH Intact Salicylates Acetaminophen Crossmatch 04/16/19 04/17/19 04/17/19 12:53 01:00 12:38 WBC RBC Hgb Hct MCV MCH MCHC RDW Plt Count Lymph % (Auto) [place] % (Auto) Eos % (Auto) Lymph # [place] # Eos # Seg Neutrophils % Seg Neuts % (Manual) Lymphocytes % (Manual) Eosinophils % (Manual) Seg Neutrophils # Lymphocytes # (Manual) Eosinophils # (Manual) PT INR D-Dimer POC ABG pH POC ABG pCO2 POC ABG pO2 ABG pO2 ABG HCO3 ABG Base Excess ABG Hemoglobin Oxyhemoglobin Sodium Potassium Chloride Carbon Dioxide BUN Creatinine Glucose POC Glucose 121 H 127 H 159 H Calcium Phosphorus Magnesium ALT Alkaline Phosphatase Total Creatine Kinase CK-MB (CK-2) Rel Index Troponin T Albumin LDL Cholesterol Direct PTH Intact Salicylates Acetaminophen Crossmatch 04/17/19 04/17/19 04/18/19 18:27 23:36 07:19 WBC RBC 3.49 L Hgb 9.0 L Hct 29.9 L MCV MCH 26 L MCHC 30 L RDW 20.0 H Plt Count Lymph % (Auto) [place] % (Auto) Eos % (Auto) Lymph # [place] # Eos # Seg Neutrophils % Seg Neuts % (Manual) Lymphocytes % (Manual) Eosinophils % (Manual) Seg Neutrophils # Lymphocytes # (Manual) Eosinophils # (Manual) PT INR D-Dimer POC ABG pH POC ABG pCO2 POC ABG pO2 ABG pO2 ABG HCO3 ABG Base Excess ABG Hemoglobin Oxyhemoglobin Sodium Potassium Chloride Carbon Dioxide BUN Creatinine Glucose POC Glucose 109 H 134 H Calcium Phosphorus Magnesium ALT Alkaline Phosphatase Total Creatine Kinase CK-MB (CK-2) Rel Index Troponin T Albumin LDL Cholesterol Direct PTH Intact Salicylates Acetaminophen Crossmatch 04/18/19 04/18/19 04/18/19 07:19 12:16 17:09 WBC RBC Hgb Hct MCV MCH MCHC RDW Plt Count Lymph % (Auto) [place] % (Auto) Eos % (Auto) Lymph # [place] # Eos # Seg Neutrophils % Seg Neuts % (Manual) Lymphocytes % (Manual) Eosinophils % (Manual) Seg Neutrophils # Lymphocytes # (Manual) Eosinophils # (Manual) PT INR D-Dimer POC ABG pH POC ABG pCO2 POC ABG pO2 ABG pO2 ABG HCO3 ABG Base Excess ABG Hemoglobin Oxyhemoglobin Sodium Potassium Chloride Carbon Dioxide BUN 41 H Creatinine 2.9 H Glucose 122 H POC Glucose 125 H 131 H Calcium Phosphorus Magnesium ALT Alkaline Phosphatase Total Creatine Kinase CK-MB (CK-2) Rel Index Troponin T Albumin LDL Cholesterol Direct PTH Intact Salicylates Acetaminophen Crossmatch 04/18/19 04/19/19 04/19/19 23:57 05:55 11:35 WBC RBC Hgb Hct MCV MCH MCHC RDW Plt Count Lymph % (Auto) [place] % (Auto) Eos % (Auto) Lymph # [place] # Eos # Seg Neutrophils % Seg Neuts % (Manual) Lymphocytes % (Manual) Eosinophils % (Manual) Seg Neutrophils # Lymphocytes # (Manual) Eosinophils # (Manual) PT INR D-Dimer POC ABG pH POC ABG pCO2 POC ABG pO2 ABG pO2 ABG HCO3 ABG Base Excess ABG Hemoglobin Oxyhemoglobin Sodium Potassium Chloride Carbon Dioxide BUN Creatinine Glucose POC Glucose 159 H 144 H 177 H Calcium Phosphorus Magnesium ALT Alkaline Phosphatase Total Creatine Kinase CK-MB (CK-2) Rel Index Troponin T Albumin LDL Cholesterol Direct PTH Intact Salicylates Acetaminophen Crossmatch 04/19/19 04/20/19 04/20/19 16:36 02:05 06:28 WBC RBC Hgb Hct MCV MCH MCHC RDW Plt Count Lymph % (Auto) [place] % (Auto) Eos % (Auto) Lymph # [place] # Eos # Seg Neutrophils % Seg Neuts % (Manual) Lymphocytes % (Manual) Eosinophils % (Manual) Seg Neutrophils # Lymphocytes # (Manual) Eosinophils # (Manual) PT INR D-Dimer POC ABG pH POC ABG pCO2 POC ABG pO2 ABG pO2 ABG HCO3 ABG Base Excess ABG Hemoglobin Oxyhemoglobin Sodium Potassium Chloride Carbon Dioxide BUN Creatinine Glucose POC Glucose 134 H 142 H 132 H Calcium Phosphorus Magnesium ALT Alkaline Phosphatase Total Creatine Kinase CK-MB (CK-2) Rel Index Troponin T Albumin LDL Cholesterol Direct PTH Intact Salicylates Acetaminophen Crossmatch 04/20/19 04/20/19 04/21/19 12:37 23:34 05:59 WBC RBC Hgb Hct MCV MCH MCHC RDW Plt Count Lymph % (Auto) [place] % (Auto) Eos % (Auto) Lymph # [place] # Eos # Seg Neutrophils % Seg Neuts % (Manual) Lymphocytes % (Manual) Eosinophils % (Manual) Seg Neutrophils # Lymphocytes # (Manual) Eosinophils # (Manual) PT INR D-Dimer POC ABG pH POC ABG pCO2 POC ABG pO2 ABG pO2 ABG HCO3 ABG Base Excess ABG Hemoglobin Oxyhemoglobin Sodium Potassium Chloride Carbon Dioxide BUN Creatinine Glucose POC Glucose 163 H 166 H 140 H Calcium Phosphorus Magnesium ALT Alkaline Phosphatase Total Creatine Kinase CK-MB (CK-2) Rel Index Troponin T Albumin LDL Cholesterol Direct PTH Intact Salicylates Acetaminophen Crossmatch 04/21/19 04/21/19 04/21/19 12:07 17:22 23:43 WBC RBC Hgb Hct MCV MCH MCHC RDW Plt Count Lymph % (Auto) [place] % (Auto) Eos % (Auto) Lymph # [place] # Eos # Seg Neutrophils % Seg Neuts % (Manual) Lymphocytes % (Manual) Eosinophils % (Manual) Seg Neutrophils # Lymphocytes # (Manual) Eosinophils # (Manual) PT INR D-Dimer POC ABG pH POC ABG pCO2 POC ABG pO2 ABG pO2 ABG HCO3 ABG Base Excess ABG Hemoglobin Oxyhemoglobin Sodium Potassium Chloride Carbon Dioxide BUN Creatinine Glucose POC Glucose 135 H 141 H 138 H Calcium Phosphorus Magnesium ALT Alkaline Phosphatase Total Creatine Kinase CK-MB (CK-2) Rel Index Troponin T Albumin LDL Cholesterol Direct PTH Intact Salicylates Acetaminophen Crossmatch 04/22/19 04/22/19 04/22/19 05:12 18:24 23:49 WBC RBC Hgb Hct MCV MCH MCHC RDW Plt Count Lymph % (Auto) [place] % (Auto) Eos % (Auto) Lymph # [place] # Eos # Seg Neutrophils % Seg Neuts % (Manual) Lymphocytes % (Manual) Eosinophils % (Manual) Seg Neutrophils # Lymphocytes # (Manual) Eosinophils # (Manual) PT INR D-Dimer POC ABG pH POC ABG pCO2 POC ABG pO2 ABG pO2 ABG HCO3 ABG Base Excess ABG Hemoglobin Oxyhemoglobin Sodium Potassium Chloride Carbon Dioxide BUN Creatinine Glucose POC Glucose 141 H 137 H 142 H Calcium Phosphorus Magnesium ALT Alkaline Phosphatase Total Creatine Kinase CK-MB (CK-2) Rel Index Troponin T Albumin LDL Cholesterol Direct PTH Intact Salicylates Acetaminophen Crossmatch 04/23/19 04/23/19 04/23/19 05:53 08:13 11:58 WBC RBC Hgb Hct MCV MCH MCHC RDW Plt Count Lymph % (Auto) [place] % (Auto) Eos % (Auto) Lymph # [place] # Eos # Seg Neutrophils % Seg Neuts % (Manual) Lymphocytes % (Manual) Eosinophils % (Manual) Seg Neutrophils # Lymphocytes # (Manual) Eosinophils # (Manual) PT INR D-Dimer POC ABG pH POC ABG pCO2 POC ABG pO2 ABG pO2 ABG HCO3 ABG Base Excess ABG Hemoglobin Oxyhemoglobin Sodium Potassium Chloride Carbon Dioxide BUN Creatinine Glucose POC Glucose 132 H 154 H 165 H Calcium Phosphorus Magnesium ALT Alkaline Phosphatase Total Creatine Kinase CK-MB (CK-2) Rel Index Troponin T Albumin LDL Cholesterol Direct PTH Intact Salicylates Acetaminophen Crossmatch 04/23/19 04/24/19 04/24/19 16:28 00:28 07:00 WBC RBC Hgb Hct MCV MCH MCHC RDW Plt Count Lymph % (Auto) [place] % (Auto) Eos % (Auto) Lymph # [place] # Eos # Seg Neutrophils % Seg Neuts % (Manual) Lymphocytes % (Manual) Eosinophils % (Manual) Seg Neutrophils # Lymphocytes # (Manual) Eosinophils # (Manual) PT INR D-Dimer POC ABG pH POC ABG pCO2 POC ABG pO2 ABG pO2 ABG HCO3 ABG Base Excess ABG Hemoglobin Oxyhemoglobin Sodium Potassium Chloride Carbon Dioxide BUN Creatinine Glucose POC Glucose 136 H 140 H 141 H Calcium Phosphorus Magnesium ALT Alkaline Phosphatase Total Creatine Kinase CK-MB (CK-2) Rel Index Troponin T Albumin LDL Cholesterol Direct PTH Intact Salicylates Acetaminophen Crossmatch 04/24/19 04/24/19 04/25/19 12:38 18:57 00:38 WBC RBC Hgb Hct MCV MCH MCHC RDW Plt Count Lymph % (Auto) [place] % (Auto) Eos % (Auto) Lymph # [place] # Eos # Seg Neutrophils % Seg Neuts % (Manual) Lymphocytes % (Manual) Eosinophils % (Manual) Seg Neutrophils # Lymphocytes # (Manual) Eosinophils # (Manual) PT INR D-Dimer POC ABG pH POC ABG pCO2 POC ABG pO2 ABG pO2 ABG HCO3 ABG Base Excess ABG Hemoglobin Oxyhemoglobin Sodium Potassium Chloride Carbon Dioxide BUN Creatinine Glucose POC Glucose 152 H 166 H 128 H Calcium Phosphorus Magnesium ALT Alkaline Phosphatase Total Creatine Kinase CK-MB (CK-2) Rel Index Troponin T Albumin LDL Cholesterol Direct PTH Intact Salicylates Acetaminophen Crossmatch 04/25/19 04/25/19 04/25/19 05:44 13:43 18:34 WBC RBC Hgb Hct MCV MCH MCHC RDW Plt Count Lymph % (Auto) [place] % (Auto) Eos % (Auto) Lymph # [place] # Eos # Seg Neutrophils % Seg Neuts % (Manual) Lymphocytes % (Manual) Eosinophils % (Manual) Seg Neutrophils # Lymphocytes # (Manual) Eosinophils # (Manual) PT INR D-Dimer POC ABG pH POC ABG pCO2 POC ABG pO2 ABG pO2 ABG HCO3 ABG Base Excess ABG Hemoglobin Oxyhemoglobin Sodium Potassium Chloride Carbon Dioxide BUN Creatinine Glucose POC Glucose 153 H 186 H 124 H Calcium Phosphorus Magnesium ALT Alkaline Phosphatase Total Creatine Kinase CK-MB (CK-2) Rel Index Troponin T Albumin LDL Cholesterol Direct PTH Intact Salicylates Acetaminophen Crossmatch 04/26/19 04/26/19 04/26/19 00:59 05:52 10:12 WBC 11.5 H RBC 2.84 L Hgb 7.4 L Hct 23.3 L MCV 82 L MCH 26 L MCHC RDW 20.3 H Plt Count Lymph % (Auto) 7.5 L [place] % (Auto) 7.5 H Eos % (Auto) 5.3 H Lymph # 0.9 L [place] # 0.9 H Eos # 0.6 H Seg Neutrophils % 79.2 H Seg Neuts % (Manual) Lymphocytes % (Manual) Eosinophils % (Manual) Seg Neutrophils # 9.1 H Lymphocytes # (Manual) Eosinophils # (Manual) PT INR D-Dimer POC ABG pH POC ABG pCO2 POC ABG pO2 ABG pO2 ABG HCO3 ABG Base Excess ABG Hemoglobin Oxyhemoglobin Sodium Potassium Chloride Carbon Dioxide BUN Creatinine Glucose POC Glucose 163 H 146 H Calcium Phosphorus Magnesium ALT Alkaline Phosphatase Total Creatine Kinase CK-MB (CK-2) Rel Index Troponin T Albumin LDL Cholesterol Direct PTH Intact Salicylates Acetaminophen Crossmatch 04/26/19 04/26/19 04/26/19 10:12 12:15 19:00 WBC RBC Hgb Hct MCV MCH MCHC RDW Plt Count Lymph % (Auto) [place] % (Auto) Eos % (Auto) Lymph # [place] # Eos # Seg Neutrophils % Seg Neuts % (Manual) Lymphocytes % (Manual) Eosinophils % (Manual) Seg Neutrophils # Lymphocytes # (Manual) Eosinophils # (Manual) PT INR D-Dimer POC ABG pH POC ABG pCO2 POC ABG pO2 ABG pO2 ABG HCO3 ABG Base Excess ABG Hemoglobin Oxyhemoglobin Sodium 130 L Potassium Chloride 87.4 L Carbon Dioxide BUN 93 H Creatinine 4.2 H Glucose 140 H POC Glucose 155 H 179 H Calcium Phosphorus Magnesium ALT Alkaline Phosphatase Total Creatine Kinase CK-MB (CK-2) Rel Index Troponin T Albumin LDL Cholesterol Direct PTH Intact Salicylates Acetaminophen Crossmatch 04/27/19 04/27/19 04/27/19 00:23 06:34 17:13 WBC RBC Hgb Hct MCV MCH MCHC RDW Plt Count Lymph % (Auto) [place] % (Auto) Eos % (Auto) Lymph # [place] # Eos # Seg Neutrophils % Seg Neuts % (Manual) Lymphocytes % (Manual) Eosinophils % (Manual) Seg Neutrophils # Lymphocytes # (Manual) Eosinophils # (Manual) PT INR D-Dimer POC ABG pH POC ABG pCO2 POC ABG pO2 ABG pO2 ABG HCO3 ABG Base Excess ABG Hemoglobin Oxyhemoglobin Sodium Potassium Chloride Carbon Dioxide BUN Creatinine Glucose POC Glucose 158 H 140 H 152 H Calcium Phosphorus Magnesium ALT Alkaline Phosphatase Total Creatine Kinase CK-MB (CK-2) Rel Index Troponin T Albumin LDL Cholesterol Direct PTH Intact Salicylates Acetaminophen Crossmatch 04/27/19 04/28/19 04/28/19 23:50 05:18 11:37 WBC RBC Hgb Hct MCV MCH MCHC RDW Plt Count Lymph % (Auto) [place] % (Auto) Eos % (Auto) Lymph # [place] # Eos # Seg Neutrophils % Seg Neuts % (Manual) Lymphocytes % (Manual) Eosinophils % (Manual) Seg Neutrophils # Lymphocytes # (Manual) Eosinophils # (Manual) PT INR D-Dimer POC ABG pH POC ABG pCO2 POC ABG pO2 ABG pO2 ABG HCO3 ABG Base Excess ABG Hemoglobin Oxyhemoglobin Sodium Potassium Chloride Carbon Dioxide BUN Creatinine Glucose POC Glucose 160 H 145 H 177 H Calcium Phosphorus Magnesium ALT Alkaline Phosphatase Total Creatine Kinase CK-MB (CK-2) Rel Index Troponin T Albumin LDL Cholesterol Direct PTH Intact Salicylates Acetaminophen Crossmatch 04/28/19 04/28/19 04/29/19 18:31 23:47 05:50 WBC RBC Hgb Hct MCV MCH MCHC RDW Plt Count Lymph % (Auto) [place] % (Auto) Eos % (Auto) Lymph # [place] # Eos # Seg Neutrophils % Seg Neuts % (Manual) Lymphocytes % (Manual) Eosinophils % (Manual) Seg Neutrophils # Lymphocytes # (Manual) Eosinophils # (Manual) PT INR D-Dimer POC ABG pH POC ABG pCO2 POC ABG pO2 ABG pO2 ABG HCO3 ABG Base Excess ABG Hemoglobin Oxyhemoglobin Sodium Potassium Chloride Carbon Dioxide BUN Creatinine Glucose POC Glucose 153 H 117 H 177 H Calcium Phosphorus Magnesium ALT Alkaline Phosphatase Total Creatine Kinase CK-MB (CK-2) Rel Index Troponin T Albumin LDL Cholesterol Direct PTH Intact Salicylates Acetaminophen Crossmatch 04/29/19 04/30/19 04/30/19 17:04 01:02 06:42 WBC RBC Hgb Hct MCV MCH MCHC RDW Plt Count Lymph % (Auto) [place] % (Auto) Eos % (Auto) Lymph # [place] # Eos # Seg Neutrophils % Seg Neuts % (Manual) Lymphocytes % (Manual) Eosinophils % (Manual) Seg Neutrophils # Lymphocytes # (Manual) Eosinophils # (Manual) PT INR D-Dimer POC ABG pH POC ABG pCO2 POC ABG pO2 ABG pO2 ABG HCO3 ABG Base Excess ABG Hemoglobin Oxyhemoglobin Sodium Potassium Chloride Carbon Dioxide BUN Creatinine Glucose POC Glucose 205 H 143 H 145 H Calcium Phosphorus Magnesium ALT Alkaline Phosphatase Total Creatine Kinase CK-MB (CK-2) Rel Index Troponin T Albumin LDL Cholesterol Direct PTH Intact Salicylates Acetaminophen Crossmatch 04/30/19 04/30/19 04/30/19 11:31 18:12 23:38 WBC RBC Hgb Hct MCV MCH MCHC RDW Plt Count Lymph % (Auto) [place] % (Auto) Eos % (Auto) Lymph # [place] # Eos # Seg Neutrophils % Seg Neuts % (Manual) Lymphocytes % (Manual) Eosinophils % (Manual) Seg Neutrophils # Lymphocytes # (Manual) Eosinophils # (Manual) PT INR D-Dimer POC ABG pH POC ABG pCO2 POC ABG pO2 ABG pO2 ABG HCO3 ABG Base Excess ABG Hemoglobin Oxyhemoglobin Sodium Potassium Chloride Carbon Dioxide BUN Creatinine Glucose POC Glucose 162 H 117 H 139 H Calcium Phosphorus Magnesium ALT Alkaline Phosphatase Total Creatine Kinase CK-MB (CK-2) Rel Index Troponin T Albumin LDL Cholesterol Direct PTH Intact Salicylates Acetaminophen Crossmatch 05/01/19 05/01/19 05/02/19 06:06 23:41 05:59 WBC RBC Hgb Hct MCV MCH MCHC RDW Plt Count Lymph % (Auto) [place] % (Auto) Eos % (Auto) Lymph # [place] # Eos # Seg Neutrophils % Seg Neuts % (Manual) Lymphocytes % (Manual) Eosinophils % (Manual) Seg Neutrophils # Lymphocytes # (Manual) Eosinophils # (Manual) PT INR D-Dimer POC ABG pH POC ABG pCO2 POC ABG pO2 ABG pO2 ABG HCO3 ABG Base Excess ABG Hemoglobin Oxyhemoglobin Sodium Potassium Chloride Carbon Dioxide BUN Creatinine Glucose POC Glucose 150 H 140 H 130 H Calcium Phosphorus Magnesium ALT Alkaline Phosphatase Total Creatine Kinase CK-MB (CK-2) Rel Index Troponin T Albumin LDL Cholesterol Direct PTH Intact Salicylates Acetaminophen Crossmatch 05/02/19 05/02/19 05/03/19 11:55 18:10 00:15 WBC RBC Hgb Hct MCV MCH MCHC RDW Plt Count Lymph % (Auto) [place] % (Auto) Eos % (Auto) Lymph # [place] # Eos # Seg Neutrophils % Seg Neuts % (Manual) Lymphocytes % (Manual) Eosinophils % (Manual) Seg Neutrophils # Lymphocytes # (Manual) Eosinophils # (Manual) PT INR D-Dimer POC ABG pH POC ABG pCO2 POC ABG pO2 ABG pO2 ABG HCO3 ABG Base Excess ABG Hemoglobin Oxyhemoglobin Sodium Potassium Chloride Carbon Dioxide BUN Creatinine Glucose POC Glucose 146 H 141 H 145 H Calcium Phosphorus Magnesium ALT Alkaline Phosphatase Total Creatine Kinase CK-MB (CK-2) Rel Index Troponin T Albumin LDL Cholesterol Direct PTH Intact Salicylates Acetaminophen Crossmatch 05/03/19 05/03/1919 05:49 05:49 06:01 WBC RBC 2.84 L Hgb 7.2 L Hct 22.9 L MCV 81 L MCH 26 L MCHC RDW 20.6 H Plt Count 456 H Lymph % (Auto) 11.8 L [place] % (Auto) Eos % (Auto) 10.6 H Lymph # 1.1 L [place] # Eos # 1.0 H Seg Neutrophils % 70.4 H Seg Neuts % (Manual) Lymphocytes % (Manual) Eosinophils % (Manual) Seg Neutrophils # Lymphocytes # (Manual) Eosinophils # (Manual) PT INR D-Dimer POC ABG pH POC ABG pCO2 POC ABG pO2 ABG pO2 ABG HCO3 ABG Base Excess ABG Hemoglobin Oxyhemoglobin Sodium Potassium Chloride 94.8 L Carbon Dioxide BUN 66 H Creatinine 3.6 H Glucose 129 H POC Glucose 135 H Calcium Phosphorus Magnesium ALT Alkaline Phosphatase Total Creatine Kinase CK-MB (CK-2) Rel Index Troponin T Albumin LDL Cholesterol Direct PTH Intact Salicylates Acetaminophen Crossmatch 05/03/19 05/03/19 05/04/19 11:04 18:40 00:06 WBC RBC Hgb Hct MCV MCH MCHC RDW Plt Count Lymph % (Auto) [place] % (Auto) Eos % (Auto) Lymph # [place] # Eos # Seg Neutrophils % Seg Neuts % (Manual) Lymphocytes % (Manual) Eosinophils % (Manual) Seg Neutrophils # Lymphocytes # (Manual) Eosinophils # (Manual) PT INR D-Dimer POC ABG pH POC ABG pCO2 POC ABG pO2 ABG pO2 ABG HCO3 ABG Base Excess ABG Hemoglobin Oxyhemoglobin Sodium Potassium Chloride Carbon Dioxide BUN Creatinine Glucose POC Glucose 191 H 167 H 137 H Calcium Phosphorus Magnesium ALT Alkaline Phosphatase Total Creatine Kinase CK-MB (CK-2) Rel Index Troponin T Albumin LDL Cholesterol Direct PTH Intact Salicylates Acetaminophen Crossmatch 05/04/19 05/04/19 05/04/19 06:44 07:30 07:30 WBC 15.8 H RBC 2.74 L Hgb 6.7 L Hct 22.2 L MCV 81 L MCH 24 L MCHC 30 L RDW 20.4 H Plt Count 450 H Lymph % (Auto) 5.1 L [place] % (Auto) Eos % (Auto) Lymph # 0.8 L [place] # Eos # 0.6 H Seg Neutrophils % 86.3 H Seg Neuts % (Manual) Lymphocytes % (Manual) Eosinophils % (Manual) Seg Neutrophils # 13.6 H Lymphocytes # (Manual) Eosinophils # (Manual) PT INR D-Dimer POC ABG pH POC ABG pCO2 POC ABG pO2 ABG pO2 ABG HCO3 ABG Base Excess ABG Hemoglobin Oxyhemoglobin Sodium Potassium Chloride 95.2 L Carbon Dioxide BUN 92 H Creatinine 4.8 H Glucose 139 H POC Glucose 153 H Calcium Phosphorus Magnesium ALT Alkaline Phosphatase Total Creatine Kinase CK-MB (CK-2) Rel Index Troponin T Albumin LDL Cholesterol Direct PTH Intact Salicylates Acetaminophen Crossmatch 05/04/19 12:55 WBC RBC Hgb Hct MCV MCH MCHC RDW Plt Count Lymph % (Auto) [place] % (Auto) Eos % (Auto) Lymph # [place] # Eos # Seg Neutrophils % Seg Neuts % (Manual) Lymphocytes % (Manual) Eosinophils % (Manual) Seg Neutrophils # Lymphocytes # (Manual) Eosinophils # (Manual) PT INR D-Dimer POC ABG pH POC ABG pCO2 POC ABG pO2 ABG pO2 ABG HCO3 ABG Base Excess ABG Hemoglobin Oxyhemoglobin Sodium Potassium Chloride Carbon Dioxide BUN Creatinine Glucose POC Glucose Calcium Phosphorus Magnesium ALT Alkaline Phosphatase Total Creatine Kinase CK-MB (CK-2) Rel Index Troponin T Albumin LDL Cholesterol Direct PTH Intact Salicylates Acetaminophen Crossmatch See Detail Chest x-ray: report reviewed, image reviewed
[2019-05-04] MEDS: risperiDONE 1 MG TAB PO SCH (16:24)
[2019-05-04] MEDS: SODIUM HYPOCHLORITE, DAKIN'S 1/2 STRENGTH (0.25%) 473 ML TOPICAL SOLN TP SCH ×2 (16:24→22:00)
[2019-05-04] MEDS: SERTRALINE 100 MG TAB PO SCH (16:24)
[2019-05-04] MEDS: FAMOTIDINE 20 MG TAB PO SCH (16:24)
[2019-05-05] MEDS: INSULIN REGULAR, HUMAN 100 UNITS/1 ML SUB-Q SCH ×4 (05:52→17:15)
[2019-05-05 06:12] LABS: Basophils # (Auto) 0.1 K/mm3 (0.0-0.1); Basophils % (Auto) 0.6 % (0.0-1.8); Eosinophils # (Auto) 0.3 K/mm3 (0.0-0.4); Eosinophils % (Auto) 2.7 % (0.0-4.3); Hematocrit 22.3 % (35.5-45.6); Hemoglobin 6.9 gm/dl (11.8-15.2); Lymphocytes # (Auto) 1.1 K/mm3 (1.2-5.4); Lymphocytes % (Auto) 8.9 % (13.4-35.0); Mean Corpuscular HGB Conc 31 % (32-34); Mean Corpuscular Volume 82 fl (84-94); Monocytes # (Auto) 0.9 K/mm3 (0.0-0.8); Monocytes % (Auto) 7.1 % (0.0-7.3); Platelet Count 428 K/mm3 (140-440); Red Blood Count 2.73 M/mm3 (3.65-5.03)
[2019-05-05] MEDS: IPRATROPIUM/ALBUTEROL SULFATE 3 ML AMPUL.NEB IH SCH ×3 (08:54→19:42)
--- NOTE | 2019-05-05 09:13 | Progress Note ---
Subjective Principal diagnosis: Respiratory failure, acute on chronic systolic HF, ESRD Interval history: Patient was seen today for follow-up of multiple renal related issues on hemodialysis Saturday He is arousable but confused, this is not new Past medical history: Reviewed Family history: Reviewed Social history: Reviewed Allergies: Reviewed Physical examination: Vitals: Reviewed HEENT: No pallor or icterus oral mucosa moist Neck: Supple no JVD no thyromegaly Chest: Bilateral clear to auscultation anteriorly Heart: Regular rate and rhythm S1-S2 heard no S3-S4 Abdomen: Soft nontender no voluntary guarding rigidity rebound Extremity: Dry skin less than 1+ peripheral edema Labs and x-rays: Reviewed from today Assessment and plan End-stage renal disease currently on maintenance hemodialysis Saturday and Saturday Anemia and end-stage renal disease hemoglobin currently around 6.9 significantly elevated BUN? Upper GI bleed Please consider packed red blood cell transfusion at least 1 unit today and 1 unit tomorrow during dialysis Overall prognosis is very poor patient is hospice appropriate in my opinion Mortality risk: Very high Continue with supportive care Leukocytosis: Blood cultures negative as of 03/14/2019, however patient has been noted to be febrile as of yesterday 100.5 He will need a repeat blood culture Systolic heart failure, dilated cardiomyopathy, pulmonary hypertension, atelectasis, pneumonia Secondary hyperparathyroidism: Check phosphorus and PTH level periodically Overall prognosis very poor We'll continue to follow and make recommendation for renal standpoint Objective - Vital Signs Vital signs: Vital Signs - 12hr 05/04/19 05/04/19 05/05/19 22:00 23:29 03:46 Temperature 100.5 F H 98.9 F Pulse Rate 113 H 115 H 108 H Pulse Rate [ Anterior Bilateral Throughout] Pulse Rate [ 98 H Apical] Respiratory 20 20 18 Rate Respiratory Rate [Anterior Bilateral Throughout] Blood Pressure 105/50 106/53 O2 Sat by Pulse 99 99 Oximetry 05/05/19 05/05/19 07:46 08:54 Temperature 98.3 F Pulse Rate 106 H Pulse Rate [ 107 H Anterior Bilateral Throughout] Pulse Rate [ Apical] Respiratory 18 Rate Respiratory 18 Rate [Anterior Bilateral Throughout] Blood Pressure 111/52 O2 Sat by Pulse 96 95 Oximetry - Lab 05/05/19 05:36 05/04/19 07:30 Most recent lab results ABG pH 7.424 pH Units (7.350-7.450) 03/19/19 04:23 ABG pCO2 48.0 mm Hg 03/19/19 04:23 ABG pO2 78.3 mm Hg (80.0-90.0) L 03/19/19 04:23 ABG HCO3 30.7 mmol/L (20.0-26.0) H 03/19/19 04:23 ABG O2 Saturation 97.0 % (95.0-99.0) 03/19/19 04:23 Calcium 10.2 mg/dL (8.4-10.2) 05/04/19 07:30 Phosphorus 4.30 mg/dL (2.5-4.5) D 03/31/19 10:26 Magnesium 2.70 mg/dL (1.7-2.3) H 03/30/19 10:13 Medications & Allergies - Medications Allergies/Adverse Reactions: Allergies haloperidol [From Haldol] Adverse Reaction (Verified 03/13/18 12:10) Unknown haloperidol lactate [From Haldol] Adverse Reaction (Verified 03/13/18 12:10) Unknown Home Medications: Home Medications Medication Instructions Recorded Confirmed Last Taken Type risperiDONE [RisperDAL] 1 mg PO QAM 03/13/18 02/21/19 Unknown History Sertraline [Zoloft] 100 mg PO QDAY 08/26/18 02/21/19 Unknown History Polyethylene Glycol 3350 [Miralax 17 gm PO QDAY #30 packet 11/05/18 02/21/19 Unknown Rx 3350] Aspirin EC [Halfprin EC] 81 mg PO DAILY #30 11/19/18 02/21/19 Unknown Rx Docusate Sodium [Colace CAP] 100 mg PO BID #60 11/19/18 02/21/19 Unknown Rx Folic Acid [Folvite] 1 mg PO DAILY #30 tab 11/19/18 02/21/19 Unknown Rx Famotidine [Pepcid] 20 mg PO DAILY tablet 12/08/18 02/21/19 Unknown Rx Gabapentin [Neurontin] 100 mg PO QHS capsule 12/08/18 02/21/19 Unknown Rx Metoprolol [Lopressor TAB] 50 mg PO BID 30 Days tablet 12/08/18 02/21/19 Unknown Rx Sevelamer Carbonate [Renvela] 800 mg PO TIDWM tablet 12/08/18 02/21/19 Unknown Rx hydrALAZINE [Apresoline TAB] 100 mg PO Q8HR #120 tablet 12/08/18 02/21/19 Unknown Rx Acetaminophen [Acetaminophen TAB] 650 mg PO Q12H PRN 12/15/18 02/21/19 Unknown History Glucagon,Human Recombinant 1 mg IJ Q15MIN PRN 12/15/18 02/21/19 Unknown History [Glucagon Emergency Kit] Insulin Aspart [NovoLOG 100 See Protocol SQ QWEEK 12/15/18 02/21/19 Unknown History UNITS/ML VIAL] Active Medications: Generic Name Dose Route Start Last Admin Trade Name Freq PRN Reason Stop Dose Admin Albuterol/Ipratropium 1 ampul 02/24/19 20:00 05/05/19 08:54 Duoneb *Not For Prn Use* IH 1 ampul TIDRT SANCHEZ Administration Lipase/Protease/Amylase 1 each 04/10/19 15:16 Pancreazkaren Barrientos 10,500 Unit FEEDTUBE PRN PRN For Clogged Feeding Tube Epoetin Solitario 20,000 unit 03/24/19 11:17 05/04/19 13:15 Procrit IV 20,000 unit UMA PRN Administration hemodialysis Famotidine 20 mg 02/23/19 10:00 05/04/19 16:24 Pepcid PO Not Given DAILY [facility] Insulin Human Regular 0 units 02/26/19 12:00 05/05/19 05:52 Humulin R SUB-Q 1 units Q6HR SANCHEZ Administration Protocol Metoprolol Tartrate 2.5 mg 02/28/19 12:06 03/15/19 05:15 Lopressor IV 2.5 mg Q4HR PRN Administration Tachycardia Risperidone 1 mg 02/25/19 13:00 05/04/19 16:24 Risperdal PO Not Given DAILY SANCHEZ Sertraline HCl 100 mg 02/25/19 13:00 05/04/19 16:24 Zoloft PO Not Given DAILY SANCHEZ Simple Syrup 15 ml 04/10/19 15:16 Simple Syrup FEEDTUBE PRN PRN Hypoglycemia Simple Syrup 30 ml 04/10/19 15:16 Simple Syrup FEEDTUBE PRN PRN Hypoglycemia Sodium Bicarbonate 325 mg 04/10/19 15:16 Sodium Bicarbonate FEEDTUBE PRN PRN For Clogged Feeding Tube Sodium Hypochlorite 1 applic 04/01/19 13:00 05/04/19 22:00 Dakin's Half Strength TP Not Given BID SANCHEZ
[2019-05-05] MEDS: SERTRALINE 100 MG TAB PO SCH (09:42)
[2019-05-05] MEDS: risperiDONE 1 MG TAB PO SCH (09:42)
[2019-05-05] MEDS: FAMOTIDINE 20 MG TAB PO SCH (09:42)
[2019-05-05] MEDS: SODIUM HYPOCHLORITE, DAKIN'S 1/2 STRENGTH (0.25%) 473 ML TOPICAL SOLN TP SCH ×2 (12:51→22:04)
--- NOTE | 2019-05-05 17:37 | Progress Note ---
Assessment and Plan /-Anemia of chronic disease s/p 4 units of prbc , r/o GI loss - ordered stool for occult blood /Acute respiratory failure on mechanical ventilator >96 hrs Likely from pulmonary edema with volume overload from end-stage renal disease and underlying CHF Extubated ; history of tracheostomy on T piece Current management , nebulizers, Currently on trach/peg placed on 03/03. Now off vent, cont oxygen supplement, improving, on t piece, nebulizers, pulmonary critical following /acute on chronic systolic CHF/ Acute pulmonary edema, HD per schedule /Dilated CMP, EF 35-40% Continue diuresis, supportive care /Acute metabolic encephalopathy, resolved, has baseline Dementia. /ESRD on hemodialysis per schedule nephrology following /-Bilateral pleural effusions improved with HD /Permanent atrial fibrillation and flutter and hypercoaguable state Not on anticoagulation because of anemia thrombocytopenia rate control meds optimized /-Diabetes mellitus type 2 Accu-Chek sliding scale coverage Insulin as needed /NSTEMI type 2 , Cardiology following /-Schizophrenia:stable /-Legally blind, supportive care /-hypertension, Monitor BP,'s adjust medications as needed /-Hypokalemia; corrected /-Pulmonary hypertension; continue current management /-Dysphagia s/p PEG tube; PEG tubes per protocol /-Severe malnutrition /hypoalbuminemia with FTT: 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, deputy court following PEG placed on 01/02/19 /-Multiple decubitus, different stages , s/ p colostomy Left 5th finger, stage 4 pressure ulcer Left heel, deep tissue injury Sacrum, stage 4 pressure ulcer POA Continue wound care /-History of sacral osteomyelitis and LE ulcers Completed Antibiotics, contact isolation for ESBL Klebsiella pneumonia on wound culture 01/02/19 /-RUL atelectasis, probably mucous plugging, resolved /KEON PNA, treated with bax, resolved /-DVT prophylaxis; Lovenox -/ COD status; DNR --Very poor prognosis Dispo; Awaiting SNF placement , difficult to place ,unable to find any NH to take patient. Brief History: Patient is 63-year-old -[place] male patient from [facility] with multiple co-morbidities including blindness, CVA, CHF, PPM/ICD, loop recorder since 2012 that is MRI compatible, IDDM type 2, sepsis left foot ulcer, afib, ESRD with complications on HD TTS, hypertension, AOCD and GERD who presented to the ED with hypotensive after intubation in the emergency room. diagnosed with fluid overload, pleural effusion. Patient has had recurrent admission in the hospital for similar reason and was recently discharged from the hospital following treatment of Severe Sepsis due to Necrotizing Unstagable sacral decubitus ulcer with ostemomylitis, has received multiple courses of broad spectrum abx. Admitted for Acute hypoxic respiratory failure, status post intubation and venti latory support, now off vent, on T-piece waiting on placement Hospitalist Physical Patient is on trach and PEG, ON 5L The patient appeared well nourished and normally developed. Vital signs as documented. Head exam is unremarkable. No scleral icterus . Neck is without jugular venous distension, thyromegaly, or carotid bruits. Lungs are clear to auscultation. Cardiac exam reveals regular rate and Rhythm. First and second heart sounds normal. No murmurs, rubs or gallops. Abdominal exam reveals PEG tube in place, colostomy bag in place. Extremities are nonedematous and both femoral and pedal pulses are normal. HOSPICE TEAM LEAD: patient doesn't follow commands Subjective Date of service: 05/05/19 Principal diagnosis: Respiratory failure, acute on chronic systolic HF, ESRD Interval history: Patient seen and examined No acute event overnight Patient remained on trach, no family at bedside Discussed with RN and case management about plan of care and discharge planning Objective - Constitutional Vitals: Vital Signs - 12hr 05/05/19 05/05/19 05/05/19 07:46 08:54 09:35 Temperature 98.3 F Pulse Rate 106 H Pulse Rate [ 107 H Anterior Bilateral Throughout] Pulse Rate [ From Monitor] Respiratory 18 Rate Respiratory 18 Rate [Anterior Bilateral Throughout] Blood Pressure 111/52 O2 Sat by Pulse 96 95 Oximetry O2 Sat by Pulse 97 Oximetry [ Assessment] 05/05/19 05/05/19 10:00 13:31 Temperature Pulse Rate 104 H Pulse Rate [ 103 H Anterior Bilateral Throughout] Pulse Rate [ 106 H From Monitor] Respiratory 18 Rate Respiratory 18 Rate [Anterior Bilateral Throughout] Blood Pressure O2 Sat by Pulse 96 Oximetry O2 Sat by Pulse Oximetry [ Assessment] - Labs CBC & Chem 7: 05/06/19 08:15 05/04/19 07:30 Labs: Abnormal lab results 05/05/19 05/05/19 05/05/19 Range/Units 01:02 05:26 05:36 WBC 12.6 H (4.5-11.0) K/mm3 RBC 2.73 L (3.65-5.03) M/mm3 Hgb 6.9 L (11.8-15.2) gm/dl Hct 22.3 L (35.5-45.6) % MCV 82 L (84-94) fl MCH 25 L (28-32) pg MCHC 31 L (32-34) % RDW 21.0 H (13.2-15.2) % Lymph % (Auto) 8.9 L (13.4-35.0) % Lymph # 1.1 L (1.2-5.4) K/mm3 [place] # 0.9 H (0.0-0.8) K/mm3 Seg Neutrophils % 80.7 H (40.0-70.0) % Seg Neutrophils # 10.2 H (1.8-7.7) K/mm3 POC Glucose 171 H 153 H (70-105) 05/05/19 05/05/19 Range/Units 11:48 16:42 WBC (4.5-11.0) K/mm3 RBC (3.65-5.03) M/mm3 Hgb (11.8-15.2) gm/dl Hct (35.5-45.6) % MCV (84-94) fl MCH (28-32) pg MCHC (32-34) % RDW (13.2-15.2) % Lymph % (Auto) (13.4-35.0) % Lymph # (1.2-5.4) K/mm3 [place] # (0.0-0.8) K/mm3 Seg Neutrophils % (40.0-70.0) % Seg Neutrophils # (1.8-7.7) K/mm3 POC Glucose 173 H 126 H (70-105)
--- NOTE | 2019-05-05 22:43 | Progress Note ---
Assessment and Plan Imp: 1. Acute encephalopathy, probably metabolic or toxic, resolved 2. A/C systolic CHF 3. Dilated CMP 4. Pulm HTN 5. ESRD 6. RUL atelectasis, probably mucous plugging -> resolved 7. KEON pneumonia, resolved Rec: 1. Chest PT, Duonebs 2. Tolerating Tpiece; monitor; medically I believe his trach should be permanent for airway management but he may require decannulation for placement in a SNF; he is tolerating PMV perfectly at this point; has a 4 cuffless now and will let him acclimate to this for a day or two prior to starting capping trials; it remains to be seen if he can clear his airway w/ trach capped; cuffed trach is noted to be at the bedside for emergency purposes 3. Avoid sedatives 4. DVT and GI PPx 5. TFs per PEG 6. HD per renal 7. Agree w/ DNR as per family wishes although hospice is the most appropriate course for him Await placement No family present Subjective Date of service: 05/05/19 Principal diagnosis: Respiratory failure, acute on chronic systolic HF, ESRD Interval history: No events. Mentation near usual poor baseline. Does respond to basic questions but cannot give hx. On 28% per Tpiece. On HD. Tolerating PMV well per ST notes. Has 4 cuffless trach now. Active Medications Albuterol/Ipratropium (Duoneb *Not For Prn Use*) 1 ampul IH TIDRT [facility] Last Admin: 05/05/19 19:42 Dose: 1 ampul Documented by: Lipase/Protease/Amylase ([place] 10,500 Unit) 1 each FEEDTUBE PRN PRN PRN Reason: For Clogged Feeding Tube Epoetin Solitario (Procrit) 20,000 unit IV UMA PRN PRN Reason: hemodialysis Last Admin: 05/04/19 13:15 Dose: 20,000 unit Documented by: Famotidine (Pepcid) 20 mg PO DAILY [facility] Last Admin: 05/05/19 09:42 Dose: 20 mg Documented by: Insulin Human Regular (Humulin R) 0 units SUB-Q Q6HR [facility]; Protocol Last Admin: 05/05/19 17:15 Dose: Not Given Documented by: Metoprolol Tartrate (Lopressor) 2.5 mg IV Q4HR PRN PRN Reason: Tachycardia Last Admin: 03/15/19 05:15 Dose: 2.5 mg Documented by: Risperidone (Risperdal) 1 mg PO DAILY [facility] Last Admin: 05/05/19 09:42 Dose: 1 mg Documented by: Sertraline HCl (Zoloft) 100 mg PO DAILY [facility] Last Admin: 05/05/19 09:42 Dose: 100 mg Documented by: Simple Syrup (Simple Syrup) 15 ml FEEDTUBE PRN PRN PRN Reason: Hypoglycemia Simple Syrup (Simple Syrup) 30 ml FEEDTUBE PRN PRN PRN Reason: Hypoglycemia Sodium Bicarbonate (Sodium Bicarbonate) 325 mg FEEDTUBE PRN PRN PRN Reason: For Clogged Feeding Tube Sodium Hypochlorite (Dakin's Half Strength) 1 applic TP BID [facility] Last Admin: 05/05/19 22:04 Dose: 1 applicatio Documented by: Objective Vital Signs - 12hr 05/05/19 05/05/19 05/05/19 11:43 13:31 16:49 Temperature 98.5 F 98.1 F Pulse Rate 102 H 99 H Pulse Rate [ 103 H Anterior Bilateral Throughout] Respiratory 18 18 Rate Respiratory 18 Rate [Anterior Bilateral Throughout] Blood Pressure 102/55 108/56 O2 Sat by Pulse 99 100 Oximetry 05/05/19 05/05/19 05/05/19 19:33 19:45 19:46 Temperature 99.4 F Pulse Rate 102 H Pulse Rate [ 99 H Anterior Bilateral Throughout] Respiratory 20 Rate Respiratory 18 Rate [Anterior Bilateral Throughout] Blood Pressure 128/63 O2 Sat by Pulse 100 96 Oximetry Constitutional: no acute distress, alert Eyes: non-icteric ENT: oropharynx moist Neck: supple Effort: normal Ascultation: Bilateral: other (coarse BS bilaterally) Cardiovascular: regular rate and rhythm (no mrg) Gastrointestinal: normoactive bowel sounds, soft, non-tender, non-distended, other (ostomy in place, brown stool) Extremities: no cyanosis, no edema, pink and warm Neurologic: other (mild weakness LUE, o/w nonfocal) Psychiatric: other (unable to assess) CBC and BMP: 05/05/19 05:36 05/04/19 07:30 ABG, PT/INR, D-dimer: ABG POC ABG pH 7.510 (7.35-7.45) H 03/18/19 06:38 ABG pH 7.424 pH Units (7.350-7.450) 03/19/19 04:23 POC ABG pCO2 38.9 (35-45) 03/18/19 06:38 ABG pCO2 48.0 mm Hg 03/19/19 04:23 POC ABG pO2 164 (80-105) H 03/18/19 06:38 ABG pO2 78.3 mm Hg (80.0-90.0) L 03/19/19 04:23 POC ABG HCO3 31.0 (22-26 mml/L) 03/18/19 06:38 POC ABG Total CO2 32 (23-27mmol/L) 03/18/19 06:38 POC ABG O2 Sat 100 03/18/19 06:38 ABG O2 Saturation 97.0 % (95.0-99.0) 03/19/19 04:23 PT/INR, D-dimer PT 16.3 Sec. (12.2-14.9) H 03/01/19 09:39 INR 1.35 (0.87-1.13) H 03/01/19 09:39 D-Dimer 2987.82 ng/mlDDU (0-234) H 02/22/19 05:54 Abnormal lab findings: Abnormal Labs 02/21/19 02/21/19 02/21/19 18:30 18:30 18:30 WBC RBC 3.26 L Hgb 8.8 L Hct 29.0 L MCV MCH 27 L MCHC 30 L RDW 19.1 H Plt Count Lymph % (Auto) 6.1 L Riley % (Auto) Eos % (Auto) Lymph # 0.4 L Riley # Eos # Seg Neutrophils % 86.2 H Seg Neuts % (Manual) Lymphocytes % (Manual) Eosinophils % (Manual) Seg Neutrophils # Lymphocytes # (Manual) Eosinophils # (Manual) PT INR D-Dimer POC ABG pH POC ABG pCO2 POC ABG pO2 ABG pO2 ABG HCO3 ABG Base Excess ABG Hemoglobin Oxyhemoglobin Sodium 133 L Potassium 3.3 L Chloride 93.1 L Carbon Dioxide 33 H BUN Creatinine Glucose 161 H POC Glucose Calcium Phosphorus Magnesium ALT Alkaline Phosphatase 136 H Total Creatine Kinase 37 L CK-MB (CK-2) Rel Index Troponin T 0.192 H* Albumin 2.4 L LDL Cholesterol Direct 36 L PTH Intact Salicylates Acetaminophen Crossmatch 02/21/19 02/21/19 02/21/19 18:42 20:04 20:04 WBC RBC Hgb Hct MCV MCH MCHC RDW Plt Count Lymph % (Auto) Riley % (Auto) Eos % (Auto) Lymph # Riley # Eos # Seg Neutrophils % Seg Neuts % (Manual) Lymphocytes % (Manual) Eosinophils % (Manual) Seg Neutrophils # Lymphocytes # (Manual) Eosinophils # (Manual) PT INR D-Dimer POC ABG pH POC ABG pCO2 56.7 H POC ABG pO2 291 H ABG pO2 ABG HCO3 ABG Base Excess ABG Hemoglobin Oxyhemoglobin Sodium Potassium Chloride Carbon Dioxide BUN Creatinine Glucose POC Glucose Calcium Phosphorus Magnesium ALT Alkaline Phosphatase Total Creatine Kinase CK-MB (CK-2) Rel Index Troponin T Albumin LDL Cholesterol Direct PTH Intact Salicylates < 0.3 L Acetaminophen < 5.0 L Crossmatch 02/21/19 02/22/19 02/22/19 22:35 03:42 03:42 WBC RBC 3.20 L Hgb 8.8 L Hct 27.6 L MCV MCH MCHC RDW 18.9 H Plt Count Lymph % (Auto) 7.4 L Riley % (Auto) Eos % (Auto) Lymph # 0.7 L Riley # Eos # Seg Neutrophils % 84.7 H Seg Neuts % (Manual) Lymphocytes % (Manual) Eosinophils % (Manual) Seg Neutrophils # Lymphocytes # (Manual) Eosinophils # (Manual) PT INR D-Dimer POC ABG pH POC ABG pCO2 POC ABG pO2 ABG pO2 ABG HCO3 ABG Base Excess ABG Hemoglobin Oxyhemoglobin Sodium 134 L Potassium 2.6 L* D Chloride Carbon Dioxide BUN Creatinine Glucose POC Glucose Calcium Phosphorus Magnesium ALT Alkaline Phosphatase Total Creatine Kinase CK-MB (CK-2) Rel Index 5.2 H Troponin T 0.202 H* Albumin LDL Cholesterol Direct PTH Intact Salicylates Acetaminophen Crossmatch 02/22/19 02/22/19 02/22/19 03:42 05:54 09:04 WBC RBC Hgb Hct MCV MCH MCHC RDW Plt Count Lymph % (Auto) Riley % (Auto) Eos % (Auto) Lymph # Riley # Eos # Seg Neutrophils % Seg Neuts % (Manual) Lymphocytes % (Manual) Eosinophils % (Manual) Seg Neutrophils # Lymphocytes # (Manual) Eosinophils # (Manual) PT INR D-Dimer 2987.82 H POC ABG pH 7.451 H POC ABG pCO2 POC ABG pO2 ABG pO2 ABG HCO3 ABG Base Excess ABG Hemoglobin Oxyhemoglobin Sodium Potassium Chloride Carbon Dioxide BUN Creatinine Glucose POC Glucose Calcium Phosphorus Magnesium ALT Alkaline Phosphatase Total Creatine Kinase CK-MB (CK-2) Rel Index 5.7 H Troponin T 0.193 H* Albumin LDL Cholesterol Direct PTH Intact Salicylates Acetaminophen Crossmatch 02/22/19 02/22/19 02/23/19 10:36 23:56 00:52 WBC RBC Hgb Hct MCV MCH MCHC RDW Plt Count Lymph % (Auto) Riley % (Auto) Eos % (Auto) Lymph # Riley # Eos # Seg Neutrophils % Seg Neuts % (Manual) Lymphocytes % (Manual) Eosinophils % (Manual) Seg Neutrophils # Lymphocytes # (Manual) Eosinophils # (Manual) PT INR D-Dimer POC ABG pH POC ABG pCO2 POC ABG pO2 ABG pO2 ABG HCO3 ABG Base Excess ABG Hemoglobin Oxyhemoglobin Sodium Potassium 3.1 L Chloride Carbon Dioxide BUN Creatinine Glucose POC Glucose 58 L 111 H Calcium Phosphorus Magnesium ALT Alkaline Phosphatase Total Creatine Kinase CK-MB (CK-2) Rel Index Troponin T Albumin LDL Cholesterol Direct PTH Intact Salicylates Acetaminophen Crossmatch 02/23/19 02/23/19 02/23/19 05:00 06:35 14:26 WBC RBC Hgb Hct MCV MCH MCHC RDW Plt Count Lymph % (Auto) Riley % (Auto) Eos % (Auto) Lymph # Riley # Eos # Seg Neutrophils % Seg Neuts % (Manual) Lymphocytes % (Manual) Eosinophils % (Manual) Seg Neutrophils # Lymphocytes # (Manual) Eosinophils # (Manual) PT INR D-Dimer POC ABG pH POC ABG pCO2 POC ABG pO2 ABG pO2 ABG HCO3 ABG Base Excess ABG Hemoglobin Oxyhemoglobin Sodium 135 L Potassium 3.1 L Chloride Carbon Dioxide BUN 21 H Creatinine 2.0 H Glucose 57 L POC Glucose 64 L 62 L Calcium Phosphorus Magnesium ALT Alkaline Phosphatase Total Creatine Kinase CK-MB (CK-2) Rel Index Troponin T Albumin LDL Cholesterol Direct PTH Intact Salicylates Acetaminophen Crossmatch 02/24/19 02/24/19 02/24/19 02:11 04:12 04:55 WBC RBC 2.84 L Hgb 7.8 L Hct 24.5 L MCV MCH MCHC RDW 19.5 H Plt Count Lymph % (Auto) Riley % (Auto) Eos % (Auto) Lymph # Riley # Eos # Seg Neutrophils % Seg Neuts % (Manual) Lymphocytes % (Manual) Eosinophils % (Manual) Seg Neutrophils # Lymphocytes # (Manual) Eosinophils # (Manual) PT INR D-Dimer POC ABG pH 7.511 H POC ABG pCO2 33.9 L POC ABG pO2 62 L ABG pO2 ABG HCO3 ABG Base Excess ABG Hemoglobin Oxyhemoglobin Sodium Potassium Chloride Carbon Dioxide BUN Creatinine Glucose POC Glucose 69 L Calcium Phosphorus Magnesium ALT Alkaline Phosphatase Total Creatine Kinase CK-MB (CK-2) Rel Index Troponin T Albumin LDL Cholesterol Direct PTH Intact Salicylates Acetaminophen Crossmatch 02/24/19 02/24/19 02/25/19 04:55 05:41 04:45 WBC RBC Hgb Hct MCV MCH MCHC RDW Plt Count Lymph % (Auto) Riley % (Auto) Eos % (Auto) Lymph # Riley # Eos # Seg Neutrophils % Seg Neuts % (Manual) Lymphocytes % (Manual) Eosinophils % (Manual) Seg Neutrophils # Lymphocytes # (Manual) Eosinophils # (Manual) PT INR D-Dimer POC ABG pH 7.466 H POC ABG pCO2 POC ABG pO2 75 L ABG pO2 ABG HCO3 ABG Base Excess ABG Hemoglobin Oxyhemoglobin Sodium Potassium Chloride Carbon Dioxide BUN Creatinine 1.8 H Glucose 73 L POC Glucose 127 H Calcium Phosphorus Magnesium ALT Alkaline Phosphatase Total Creatine Kinase CK-MB (CK-2) Rel Index Troponin T Albumin LDL Cholesterol Direct PTH Intact Salicylates Acetaminophen Crossmatch 02/25/19 02/25/19 02/26/19 16:34 21:33 03:45 WBC RBC 2.96 L Hgb 8.0 L Hct 25.8 L MCV MCH 27 L MCHC 31 L RDW 20.0 H Plt Count Lymph % (Auto) Riley % (Auto) Eos % (Auto) Lymph # Riley # Eos # Seg Neutrophils % Seg Neuts % (Manual) Lymphocytes % (Manual) Eosinophils % (Manual) Seg Neutrophils # Lymphocytes # (Manual) Eosinophils # (Manual) PT INR D-Dimer POC ABG pH POC ABG pCO2 POC ABG pO2 ABG pO2 ABG HCO3 ABG Base Excess ABG Hemoglobin Oxyhemoglobin Sodium Potassium Chloride Carbon Dioxide BUN Creatinine Glucose POC Glucose 141 H 106 H Calcium Phosphorus Magnesium ALT Alkaline Phosphatase Total Creatine Kinase CK-MB (CK-2) Rel Index Troponin T Albumin LDL Cholesterol Direct PTH Intact Salicylates Acetaminophen Crossmatch 02/26/19 02/26/19 02/26/19 03:45 04:13 07:53 WBC RBC Hgb Hct MCV MCH MCHC RDW Plt Count Lymph % (Auto) Riley % (Auto) Eos % (Auto) Lymph # Riley # Eos # Seg Neutrophils % Seg Neuts % (Manual) Lymphocytes % (Manual) Eosinophils % (Manual) Seg Neutrophils # Lymphocytes # (Manual) Eosinophils # (Manual) PT INR D-Dimer POC ABG pH 7.470 H POC ABG pCO2 POC ABG pO2 ABG pO2 ABG HCO3 ABG Base Excess ABG Hemoglobin Oxyhemoglobin Sodium Potassium Chloride Carbon Dioxide BUN Creatinine 1.8 H Glucose POC Glucose 110 H Calcium Phosphorus Magnesium ALT Alkaline Phosphatase Total Creatine Kinase CK-MB (CK-2) Rel Index Troponin T Albumin LDL Cholesterol Direct PTH Intact Salicylates Acetaminophen Crossmatch 02/26/19 02/26/19 02/27/19 11:56 17:43 00:12 WBC RBC Hgb Hct MCV MCH MCHC RDW Plt Count Lymph % (Auto) Riley % (Auto) Eos % (Auto) Lymph # Riley # Eos # Seg Neutrophils % Seg Neuts % (Manual) Lymphocytes % (Manual) Eosinophils % (Manual) Seg Neutrophils # Lymphocytes # (Manual) Eosinophils # (Manual) PT INR D-Dimer POC ABG pH POC ABG pCO2 POC ABG pO2 ABG pO2 ABG HCO3 ABG Base Excess ABG Hemoglobin Oxyhemoglobin Sodium Potassium Chloride Carbon Dioxide BUN Creatinine Glucose POC Glucose 112 H 127 H 127 H Calcium Phosphorus Magnesium ALT Alkaline Phosphatase Total Creatine Kinase CK-MB (CK-2) Rel Index Troponin T Albumin LDL Cholesterol Direct PTH Intact Salicylates Acetaminophen Crossmatch 02/27/19 02/27/19 02/27/19 04:35 13:15 18:02 WBC RBC Hgb Hct MCV MCH MCHC RDW Plt Count Lymph % (Auto) Riley % (Auto) Eos % (Auto) Lymph # Riley # Eos # Seg Neutrophils % Seg Neuts % (Manual) Lymphocytes % (Manual) Eosinophils % (Manual) Seg Neutrophils # Lymphocytes # (Manual) Eosinophils # (Manual) PT INR D-Dimer POC ABG pH 7.483 H POC ABG pCO2 POC ABG pO2 61 L ABG pO2 ABG HCO3 ABG Base Excess ABG Hemoglobin Oxyhemoglobin Sodium Potassium Chloride Carbon Dioxide BUN Creatinine Glucose POC Glucose 143 H 106 H Calcium Phosphorus Magnesium ALT Alkaline Phosphatase Total Creatine Kinase CK-MB (CK-2) Rel Index Troponin T Albumin LDL Cholesterol Direct PTH Intact Salicylates Acetaminophen Crossmatch 02/28/19 02/28/19 02/28/19 05:50 11:59 17:52 WBC RBC Hgb Hct MCV MCH MCHC RDW Plt Count Lymph % (Auto) Riley % (Auto) Eos % (Auto) Lymph # Riley # Eos # Seg Neutrophils % Seg Neuts % (Manual) Lymphocytes % (Manual) Eosinophils % (Manual) Seg Neutrophils # Lymphocytes # (Manual) Eosinophils # (Manual) PT INR D-Dimer POC ABG pH POC ABG pCO2 POC ABG pO2 ABG pO2 ABG HCO3 ABG Base Excess ABG Hemoglobin Oxyhemoglobin Sodium Potassium Chloride Carbon Dioxide BUN Creatinine Glucose POC Glucose 134 H 128 H 142 H Calcium Phosphorus Magnesium ALT Alkaline Phosphatase Total Creatine Kinase CK-MB (CK-2) Rel Index Troponin T Albumin LDL Cholesterol Direct PTH Intact Salicylates Acetaminophen Crossmatch 02/28/19 03/01/19 03/01/19 23:13 05:40 09:39 WBC RBC Hgb Hct MCV MCH MCHC RDW Plt Count Lymph % (Auto) Riley % (Auto) Eos % (Auto) Lymph # Riley # Eos # Seg Neutrophils % Seg Neuts % (Manual) Lymphocytes % (Manual) Eosinophils % (Manual) Seg Neutrophils # Lymphocytes # (Manual) Eosinophils # (Manual) PT 16.3 H INR 1.35 H D-Dimer POC ABG pH POC ABG pCO2 POC ABG pO2 ABG pO2 ABG HCO3 ABG Base Excess ABG Hemoglobin Oxyhemoglobin Sodium Potassium Chloride Carbon Dioxide BUN Creatinine Glucose POC Glucose 112 H 111 H Calcium Phosphorus Magnesium ALT Alkaline Phosphatase Total Creatine Kinase CK-MB (CK-2) Rel Index Troponin T Albumin LDL Cholesterol Direct PTH Intact Salicylates Acetaminophen Crossmatch 03/01/19 03/01/19 03/01/19 11:56 13:54 17:59 WBC RBC Hgb Hct MCV MCH MCHC RDW Plt Count Lymph % (Auto) Riley % (Auto) Eos % (Auto) Lymph # Riley # Eos # Seg Neutrophils % Seg Neuts % (Manual) Lymphocytes % (Manual) Eosinophils % (Manual) Seg Neutrophils # Lymphocytes # (Manual) Eosinophils # (Manual) PT INR D-Dimer POC ABG pH POC ABG pCO2 POC ABG pO2 ABG pO2 ABG HCO3 ABG Base Excess ABG Hemoglobin Oxyhemoglobin Sodium Potassium Chloride Carbon Dioxide BUN 33 H Creatinine 2.8 H D Glucose 176 H POC Glucose 199 H 147 H Calcium Phosphorus Magnesium ALT Alkaline Phosphatase Total Creatine Kinase CK-MB (CK-2) Rel Index Troponin T Albumin LDL Cholesterol Direct PTH Intact Salicylates Acetaminophen Crossmatch 03/02/19 03/02/19 03/02/19 05:15 05:15 05:15 WBC RBC 2.73 L Hgb 7.4 L Hct 23.0 L MCV MCH 27 L MCHC RDW 19.9 H Plt Count Lymph % (Auto) Riley % (Auto) 7.9 H Eos % (Auto) 7.6 H Lymph # 1.0 L Riley # Eos # 0.5 H Seg Neutrophils % Seg Neuts % (Manual) Lymphocytes % (Manual) Eosinophils % (Manual) Seg Neutrophils # Lymphocytes # (Manual) Eosinophils # (Manual) PT INR D-Dimer POC ABG pH POC ABG pCO2 POC ABG pO2 ABG pO2 ABG HCO3 ABG Base Excess ABG Hemoglobin Oxyhemoglobin Sodium Potassium Chloride Carbon Dioxide BUN 43 H Creatinine 3.2 H Glucose POC Glucose Calcium Phosphorus 2.30 L Magnesium ALT Alkaline Phosphatase Total Creatine Kinase CK-MB (CK-2) Rel Index Troponin T Albumin LDL Cholesterol Direct PTH Intact 267.6 H Salicylates Acetaminophen Crossmatch 03/02/19 03/02/19 03/03/19 12:32 18:20 13:30 WBC RBC Hgb Hct MCV MCH MCHC RDW Plt Count Lymph % (Auto) Riley % (Auto) Eos % (Auto) Lymph # Riley # Eos # Seg Neutrophils % Seg Neuts % (Manual) Lymphocytes % (Manual) Eosinophils % (Manual) Seg Neutrophils # Lymphocytes # (Manual) Eosinophils # (Manual) PT INR D-Dimer POC ABG pH POC ABG pCO2 POC ABG pO2 ABG pO2 ABG HCO3 ABG Base Excess ABG Hemoglobin Oxyhemoglobin Sodium Potassium Chloride 97.3 L Carbon Dioxide BUN 26 H Creatinine 2.2 H Glucose 73 L POC Glucose 111 H 156 H Calcium Phosphorus Magnesium ALT Alkaline Phosphatase Total Creatine Kinase CK-MB (CK-2) Rel Index Troponin T Albumin LDL Cholesterol Direct PTH Intact Salicylates Acetaminophen Crossmatch 0803/04/19 03/04/19 00:02 05:37 05:40 WBC RBC 2.63 L Hgb 7.2 L Hct 22.2 L MCV MCH MCHC RDW 20.2 H Plt Count Lymph % (Auto) 10.5 L Riley % (Auto) Eos % (Auto) 4.6 H Lymph # 0.7 L Riley # Eos # Seg Neutrophils % 76.9 H Seg Neuts % (Manual) Lymphocytes % (Manual) Eosinophils % (Manual) Seg Neutrophils # Lymphocytes # (Manual) Eosinophils # (Manual) PT INR D-Dimer POC ABG pH POC ABG pCO2 POC ABG pO2 ABG pO2 ABG HCO3 ABG Base Excess ABG Hemoglobin Oxyhemoglobin Sodium Potassium Chloride Carbon Dioxide BUN Creatinine Glucose POC Glucose 136 H 123 H Calcium Phosphorus Magnesium ALT Alkaline Phosphatase Total Creatine Kinase CK-MB (CK-2) Rel Index Troponin T Albumin LDL Cholesterol Direct PTH Intact Salicylates Acetaminophen Crossmatch 03/04/19 03/04/19 03/04/19 05:40 11:39 23:20 WBC RBC Hgb Hct MCV MCH MCHC RDW Plt Count Lymph % (Auto) Riley % (Auto) Eos % (Auto) Lymph # Riley # Eos # Seg Neutrophils % Seg Neuts % (Manual) Lymphocytes % (Manual) Eosinophils % (Manual) Seg Neutrophils # Lymphocytes # (Manual) Eosinophils # (Manual) PT INR D-Dimer POC ABG pH POC ABG pCO2 POC ABG pO2 ABG pO2 ABG HCO3 ABG Base Excess ABG Hemoglobin Oxyhemoglobin Sodium Potassium Chloride Carbon Dioxide BUN 34 H Creatinine 2.7 H Glucose 114 H POC Glucose 175 H 151 H Calcium Phosphorus Magnesium ALT Alkaline Phosphatase Total Creatine Kinase CK-MB (CK-2) Rel Index Troponin T Albumin LDL Cholesterol Direct PTH Intact Salicylates Acetaminophen Crossmatch 03/05/19 03/05/19 03/05/19 05:37 12:08 17:11 WBC RBC Hgb Hct MCV MCH MCHC RDW Plt Count Lymph % (Auto) Riley % (Auto) Eos % (Auto) Lymph # Riley # Eos # Seg Neutrophils % Seg Neuts % (Manual) Lymphocytes % (Manual) Eosinophils % (Manual) Seg Neutrophils # Lymphocytes # (Manual) Eosinophils # (Manual) PT INR D-Dimer POC ABG pH POC ABG pCO2 POC ABG pO2 ABG pO2 ABG HCO3 ABG Base Excess ABG Hemoglobin Oxyhemoglobin Sodium Potassium Chloride Carbon Dioxide BUN Creatinine Glucose POC Glucose 134 H 135 H 135 H Calcium Phosphorus Magnesium ALT Alkaline Phosphatase Total Creatine Kinase CK-MB (CK-2) Rel Index Troponin T Albumin LDL Cholesterol Direct PTH Intact Salicylates Acetaminophen Crossmatch 03/06/19 03/06/19 03/06/19 00:16 13:05 18:09 WBC RBC Hgb Hct MCV MCH MCHC RDW Plt Count Lymph % (Auto) Riley % (Auto) Eos % (Auto) Lymph # Riley # Eos # Seg Neutrophils % Seg Neuts % (Manual) Lymphocytes % (Manual) Eosinophils % (Manual) Seg Neutrophils # Lymphocytes # (Manual) Eosinophils # (Manual) PT INR D-Dimer POC ABG pH POC ABG pCO2 POC ABG pO2 ABG pO2 ABG HCO3 ABG Base Excess ABG Hemoglobin Oxyhemoglobin Sodium Potassium Chloride Carbon Dioxide BUN Creatinine Glucose POC Glucose 117 H 113 H 131 H Calcium Phosphorus Magnesium ALT Alkaline Phosphatase Total Creatine Kinase CK-MB (CK-2) Rel Index Troponin T Albumin LDL Cholesterol Direct PTH Intact Salicylates Acetaminophen Crossmatch 03/07/19 03/08/19 03/08/19 05:25 05:33 16:00 WBC RBC 2.44 L Hgb 6.6 L Hct 20.8 L MCV MCH 27 L MCHC RDW 19.2 H Plt Count Lymph % (Auto) Riley % (Auto) Eos % (Auto) 8.6 H Lymph # 0.8 L Riley # Eos # 0.5 H Seg Neutrophils % 70.7 H Seg Neuts % (Manual) Lymphocytes % (Manual) Eosinophils % (Manual) Seg Neutrophils # Lymphocytes # (Manual) Eosinophils # (Manual) PT INR D-Dimer POC ABG pH POC ABG pCO2 POC ABG pO2 ABG pO2 ABG HCO3 ABG Base Excess ABG Hemoglobin Oxyhemoglobin Sodium Potassium Chloride Carbon Dioxide BUN Creatinine Glucose POC Glucose 106 H 108 H Calcium Phosphorus Magnesium ALT Alkaline Phosphatase Total Creatine Kinase CK-MB (CK-2) Rel Index Troponin T Albumin LDL Cholesterol Direct PTH Intact Salicylates Acetaminophen Crossmatch 03/08/19 03/08/19 03/08/19 16:00 18:38 Unknown WBC RBC Hgb Hct MCV MCH MCHC RDW Plt Count Lymph % (Auto) Riley % (Auto) Eos % (Auto) Lymph # Riley # Eos # Seg Neutrophils % Seg Neuts % (Manual) Lymphocytes % (Manual) Eosinophils % (Manual) Seg Neutrophils # Lymphocytes # (Manual) Eosinophils # (Manual) PT INR D-Dimer POC ABG pH POC ABG pCO2 POC ABG pO2 ABG pO2 ABG HCO3 ABG Base Excess ABG Hemoglobin Oxyhemoglobin Sodium Potassium 5.4 H D Chloride Carbon Dioxide BUN 47 H Creatinine 2.6 H Glucose POC Glucose 123 H Calcium Phosphorus Magnesium ALT < 5 L Alkaline Phosphatase Total Creatine Kinase CK-MB (CK-2) Rel Index Troponin T Albumin 2.2 L LDL Cholesterol Direct PTH Intact Salicylates Acetaminophen Crossmatch See Detail 03/09/19 03/09/19 03/09/19 10:48 12:28 13:53 WBC RBC 2.85 L Hgb 7.7 L Hct 24.2 L MCV MCH 27 L MCHC RDW 18.7 H Plt Count Lymph % (Auto) Riley % (Auto) Eos % (Auto) Lymph # Riley # Eos # Seg Neutrophils % Seg Neuts % (Manual) Lymphocytes % (Manual) Eosinophils % (Manual) Seg Neutrophils # Lymphocytes # (Manual) Eosinophils # (Manual) PT INR D-Dimer POC ABG pH POC ABG pCO2 POC ABG pO2 ABG pO2 ABG HCO3 30.5 H ABG Base Excess 5.6 H ABG Hemoglobin 8.1 L Oxyhemoglobin 93.8 L Sodium Potassium Chloride Carbon Dioxide BUN Creatinine Glucose POC Glucose 114 H Calcium Phosphorus Magnesium ALT Alkaline Phosphatase Total Creatine Kinase CK-MB (CK-2) Rel Index Troponin T Albumin LDL Cholesterol Direct PTH Intact Salicylates Acetaminophen Crossmatch 03/09/19 03/09/19 03/10/19 17:58 23:53 12:01 WBC RBC Hgb Hct MCV MCH MCHC RDW Plt Count Lymph % (Auto) Riley % (Auto) Eos % (Auto) Lymph # Riley # Eos # Seg Neutrophils % Seg Neuts % (Manual) Lymphocytes % (Manual) Eosinophils % (Manual) Seg Neutrophils # Lymphocytes # (Manual) Eosinophils # (Manual) PT INR D-Dimer POC ABG pH POC ABG pCO2 POC ABG pO2 ABG pO2 ABG HCO3 ABG Base Excess ABG Hemoglobin Oxyhemoglobin Sodium Potassium Chloride Carbon Dioxide BUN Creatinine Glucose POC Glucose 108 H 128 H 144 H Calcium Phosphorus Magnesium ALT Alkaline Phosphatase Total Creatine Kinase CK-MB (CK-2) Rel Index Troponin T Albumin LDL Cholesterol Direct PTH Intact Salicylates Acetaminophen Crossmatch 03/10/19 03/11/19 03/11/19 16:50 00:24 05:02 WBC RBC Hgb Hct MCV MCH MCHC RDW Plt Count Lymph % (Auto) Riley % (Auto) Eos % (Auto) Lymph # Riley # Eos # Seg Neutrophils % Seg Neuts % (Manual) Lymphocytes % (Manual) Eosinophils % (Manual) Seg Neutrophils # Lymphocytes # (Manual) Eosinophils # (Manual) PT INR D-Dimer POC ABG pH POC ABG pCO2 POC ABG pO2 ABG pO2 ABG HCO3 ABG Base Excess ABG Hemoglobin Oxyhemoglobin Sodium Potassium Chloride Carbon Dioxide BUN Creatinine Glucose POC Glucose 147 H 123 H 120 H Calcium Phosphorus Magnesium ALT Alkaline Phosphatase Total Creatine Kinase CK-MB (CK-2) Rel Index Troponin T Albumin LDL Cholesterol Direct PTH Intact Salicylates Acetaminophen Crossmatch 03/11/19 03/11/19 03/11/19 11:56 12:20 18:37 WBC RBC Hgb Hct MCV MCH MCHC RDW Plt Count Lymph % (Auto) Riley % (Auto) Eos % (Auto) Lymph # Riley # Eos # Seg Neutrophils % Seg Neuts % (Manual) Lymphocytes % (Manual) Eosinophils % (Manual) Seg Neutrophils # Lymphocytes # (Manual) Eosinophils # (Manual) PT INR D-Dimer POC ABG pH POC ABG pCO2 POC ABG pO2 ABG pO2 ABG HCO3 ABG Base Excess ABG Hemoglobin Oxyhemoglobin Sodium Potassium 5.2 H Chloride Carbon Dioxide BUN Creatinine Glucose POC Glucose 123 H 125 H Calcium Phosphorus Magnesium ALT Alkaline Phosphatase Total Creatine Kinase CK-MB (CK-2) Rel Index Troponin T Albumin LDL Cholesterol Direct PTH Intact Salicylates Acetaminophen Crossmatch 03/11/19 03/12/19 03/12/19 22:52 12:04 18:25 WBC RBC Hgb Hct MCV MCH MCHC RDW Plt Count Lymph % (Auto) Riley % (Auto) Eos % (Auto) Lymph # Riley # Eos # Seg Neutrophils % Seg Neuts % (Manual) Lymphocytes % (Manual) Eosinophils % (Manual) Seg Neutrophils # Lymphocytes # (Manual) Eosinophils # (Manual) PT INR D-Dimer POC ABG pH POC ABG pCO2 POC ABG pO2 ABG pO2 ABG HCO3 ABG Base Excess ABG Hemoglobin Oxyhemoglobin Sodium Potassium Chloride Carbon Dioxide BUN Creatinine Glucose POC Glucose 110 H 106 H 118 H Calcium Phosphorus Magnesium ALT Alkaline Phosphatase Total Creatine Kinase CK-MB (CK-2) Rel Index Troponin T Albumin LDL Cholesterol Direct PTH Intact Salicylates Acetaminophen Crossmatch 03/12/19 03/13/19 03/13/19 23:36 04:38 04:38 WBC RBC 2.95 L Hgb 7.9 L Hct 24.9 L MCV MCH 27 L MCHC RDW 19.9 H Plt Count Lymph % (Auto) 11.1 L Riley % (Auto) 8.1 H Eos % (Auto) 4.4 H Lymph # 0.9 L Riley # Eos # Seg Neutrophils % 75.4 H Seg Neuts % (Manual) Lymphocytes % (Manual) Eosinophils % (Manual) Seg Neutrophils # Lymphocytes # (Manual) Eosinophils # (Manual) PT INR D-Dimer POC ABG pH POC ABG pCO2 POC ABG pO2 ABG pO2 ABG HCO3 ABG Base Excess ABG Hemoglobin Oxyhemoglobin Sodium 136 L Potassium 5.1 H Chloride 93.8 L Carbon Dioxide BUN 48 H Creatinine 2.7 H Glucose 102 H POC Glucose 115 H Calcium Phosphorus Magnesium ALT < 5 L Alkaline Phosphatase 143 H Total Creatine Kinase CK-MB (CK-2) Rel Index Troponin T Albumin 2.5 L LDL Cholesterol Direct PTH Intact Salicylates Acetaminophen Crossmatch 03/13/19 03/13/19 03/13/19 05:33 13:37 18:03 WBC RBC Hgb Hct MCV MCH MCHC RDW Plt Count Lymph % (Auto) Riley % (Auto) Eos % (Auto) Lymph # Riley # Eos # Seg Neutrophils % Seg Neuts % (Manual) Lymphocytes % (Manual) Eosinophils % (Manual) Seg Neutrophils # Lymphocytes # (Manual) Eosinophils # (Manual) PT INR D-Dimer POC ABG pH POC ABG pCO2 POC ABG pO2 ABG pO2 ABG HCO3 ABG Base Excess ABG Hemoglobin Oxyhemoglobin Sodium Potassium Chloride Carbon Dioxide BUN Creatinine Glucose POC Glucose 140 H 150 H 158 H Calcium Phosphorus Magnesium ALT Alkaline Phosphatase Total Creatine Kinase CK-MB (CK-2) Rel Index Troponin T Albumin LDL Cholesterol Direct PTH Intact Salicylates Acetaminophen Crossmatch 03/13/19 03/14/19 03/14/19 23:32 05:24 12:20 WBC RBC Hgb Hct MCV MCH MCHC RDW Plt Count Lymph % (Auto) Riley % (Auto) Eos % (Auto) Lymph # Riley # Eos # Seg Neutrophils % Seg Neuts % (Manual) Lymphocytes % (Manual) Eosinophils % (Manual) Seg Neutrophils # Lymphocytes # (Manual) Eosinophils # (Manual) PT INR D-Dimer POC ABG pH POC ABG pCO2 POC ABG pO2 ABG pO2 ABG HCO3 ABG Base Excess ABG Hemoglobin Oxyhemoglobin Sodium Potassium Chloride Carbon Dioxide BUN Creatinine Glucose POC Glucose 162 H 146 H 127 H Calcium Phosphorus Magnesium ALT Alkaline Phosphatase Total Creatine Kinase CK-MB (CK-2) Rel Index Troponin T Albumin LDL Cholesterol Direct PTH Intact Salicylates Acetaminophen Crossmatch 03/14/19 03/14/19 03/15/19 18:05 23:57 04:38 WBC 12.8 H RBC 3.11 L Hgb 8.1 L Hct 26.5 L MCV MCH 26 L MCHC 31 L RDW 19.7 H Plt Count Lymph % (Auto) 4.4 L Riley % (Auto) 7.4 H Eos % (Auto) Lymph # 0.6 L Riley # 0.9 H Eos # Seg Neutrophils % 87.3 H Seg Neuts % (Manual) Lymphocytes % (Manual) Eosinophils % (Manual) Seg Neutrophils # 11.2 H Lymphocytes # (Manual) Eosinophils # (Manual) PT INR D-Dimer POC ABG pH POC ABG pCO2 POC ABG pO2 ABG pO2 ABG HCO3 ABG Base Excess ABG Hemoglobin Oxyhemoglobin Sodium Potassium Chloride Carbon Dioxide BUN Creatinine Glucose POC Glucose 142 H 155 H Calcium Phosphorus Magnesium ALT Alkaline Phosphatase Total Creatine Kinase CK-MB (CK-2) Rel Index Troponin T Albumin LDL Cholesterol Direct PTH Intact Salicylates Acetaminophen Crossmatch 03/15/19 03/15/19 03/15/19 04:38 05:31 11:32 WBC RBC Hgb Hct MCV MCH MCHC RDW Plt Count Lymph % (Auto) Riley % (Auto) Eos % (Auto) Lymph # Riley # Eos # Seg Neutrophils % Seg Neuts % (Manual) Lymphocytes % (Manual) Eosinophils % (Manual) Seg Neutrophils # Lymphocytes # (Manual) Eosinophils # (Manual) PT INR D-Dimer POC ABG pH POC ABG pCO2 POC ABG pO2 ABG pO2 ABG HCO3 ABG Base Excess ABG Hemoglobin Oxyhemoglobin Sodium 135 L Potassium Chloride 91.9 L Carbon Dioxide BUN 54 H Creatinine 2.8 H Glucose 128 H POC Glucose 160 H 109 H Calcium 11.1 H Phosphorus Magnesium ALT Alkaline Phosphatase 161 H Total Creatine Kinase CK-MB (CK-2) Rel Index Troponin T Albumin 2.3 L LDL Cholesterol Direct PTH Intact Salicylates Acetaminophen Crossmatch 03/15/19 03/15/19 03/16/19 18:15 23:41 05:40 WBC RBC Hgb Hct MCV MCH MCHC RDW Plt Count Lymph % (Auto) Riley % (Auto) Eos % (Auto) Lymph # Riley # Eos # Seg Neutrophils % Seg Neuts % (Manual) Lymphocytes % (Manual) Eosinophils % (Manual) Seg Neutrophils # Lymphocytes # (Manual) Eosinophils # (Manual) PT INR D-Dimer POC ABG pH POC ABG pCO2 POC ABG pO2 ABG pO2 ABG HCO3 ABG Base Excess ABG Hemoglobin Oxyhemoglobin Sodium Potassium Chloride Carbon Dioxide BUN Creatinine Glucose POC Glucose 151 H 110 H 163 H Calcium Phosphorus Magnesium ALT Alkaline Phosphatase Total Creatine Kinase CK-MB (CK-2) Rel Index Troponin T Albumin LDL Cholesterol Direct PTH Intact Salicylates Acetaminophen Crossmatch 03/16/19 03/16/19 03/16/19 11:55 17:04 23:58 WBC RBC Hgb Hct MCV MCH MCHC RDW Plt Count Lymph % (Auto) Riley % (Auto) Eos % (Auto) Lymph # Riley # Eos # Seg Neutrophils % Seg Neuts % (Manual) Lymphocytes % (Manual) Eosinophils % (Manual) Seg Neutrophils # Lymphocytes # (Manual) Eosinophils # (Manual) PT INR D-Dimer POC ABG pH POC ABG pCO2 POC ABG pO2 ABG pO2 ABG HCO3 ABG Base Excess ABG Hemoglobin Oxyhemoglobin Sodium Potassium Chloride Carbon Dioxide BUN Creatinine Glucose POC Glucose 114 H 147 H 192 H Calcium Phosphorus Magnesium ALT Alkaline Phosphatase Total Creatine Kinase CK-MB (CK-2) Rel Index Troponin T Albumin LDL Cholesterol Direct PTH Intact Salicylates Acetaminophen Crossmatch 03/17/19 03/17/19 03/17/19 05:53 11:17 17:01 WBC RBC Hgb Hct MCV MCH MCHC RDW Plt Count Lymph % (Auto) Riley % (Auto) Eos % (Auto) Lymph # Riley # Eos # Seg Neutrophils % Seg Neuts % (Manual) Lymphocytes % (Manual) Eosinophils % (Manual) Seg Neutrophils # Lymphocytes # (Manual) Eosinophils # (Manual) PT INR D-Dimer POC ABG pH POC ABG pCO2 POC ABG pO2 ABG pO2 ABG HCO3 ABG Base Excess ABG Hemoglobin Oxyhemoglobin Sodium Potassium Chloride Carbon Dioxide BUN Creatinine Glucose POC Glucose 151 H 161 H 152 H Calcium Phosphorus Magnesium ALT Alkaline Phosphatase Total Creatine Kinase CK-MB (CK-2) Rel Index Troponin T Albumin LDL Cholesterol Direct PTH Intact Salicylates Acetaminophen Crossmatch 03/17/19 03/18/19 03/18/19 21:47 04:15 04:44 WBC RBC Hgb Hct MCV MCH MCHC RDW Plt Count Lymph % (Auto) Riley % (Auto) Eos % (Auto) Lymph # Riley # Eos # Seg Neutrophils % Seg Neuts % (Manual) Lymphocytes % (Manual) Eosinophils % (Manual) Seg Neutrophils # Lymphocytes # (Manual) Eosinophils # (Manual) PT INR D-Dimer POC ABG pH POC ABG pCO2 POC ABG pO2 ABG pO2 102.8 H ABG HCO3 28.3 H ABG Base Excess ABG Hemoglobin 10.4 L Oxyhemoglobin 94.5 L Sodium Potassium Chloride Carbon Dioxide BUN Creatinine Glucose POC Glucose 170 H 150 H Calcium Phosphorus Magnesium ALT Alkaline Phosphatase Total Creatine Kinase CK-MB (CK-2) Rel Index Troponin T Albumin LDL Cholesterol Direct PTH Intact Salicylates Acetaminophen Crossmatch 03/18/19 03/18/19 03/18/19 06:38 12:12 17:47 WBC RBC Hgb Hct MCV MCH MCHC RDW Plt Count Lymph % (Auto) Riley % (Auto) Eos % (Auto) Lymph # Riley # Eos # Seg Neutrophils % Seg Neuts % (Manual) Lymphocytes % (Manual) Eosinophils % (Manual) Seg Neutrophils # Lymphocytes # (Manual) Eosinophils # (Manual) PT INR D-Dimer POC ABG pH 7.510 H POC ABG pCO2 POC ABG pO2 164 H ABG pO2 ABG HCO3 ABG Base Excess ABG Hemoglobin Oxyhemoglobin Sodium Potassium Chloride Carbon Dioxide BUN Creatinine Glucose POC Glucose 145 H 149 H Calcium Phosphorus Magnesium ALT Alkaline Phosphatase Total Creatine Kinase CK-MB (CK-2) Rel Index Troponin T Albumin LDL Cholesterol Direct PTH Intact Salicylates Acetaminophen Crossmatch 03/18/19 03/19/19 03/19/19 23:25 01:11 04:23 WBC 15.6 H RBC 2.51 L Hgb 6.5 L Hct 21.6 L MCV MCH 26 L MCHC 30 L RDW 19.8 H Plt Count Lymph % (Auto) 6.0 L Riley % (Auto) Eos % (Auto) Lymph # 0.9 L Riley # 1.0 H Eos # Seg Neutrophils % 85.5 H Seg Neuts % (Manual) Lymphocytes % (Manual) Eosinophils % (Manual) Seg Neutrophils # 13.4 H Lymphocytes # (Manual) Eosinophils # (Manual) PT INR D-Dimer POC ABG pH POC ABG pCO2 POC ABG pO2 ABG pO2 78.3 L ABG HCO3 30.7 H ABG Base Excess 5.8 H ABG Hemoglobin 5.8 L Oxyhemoglobin 94.6 L Sodium Potassium Chloride Carbon Dioxide BUN Creatinine Glucose POC Glucose 190 H Calcium Phosphorus Magnesium ALT Alkaline Phosphatase Total Creatine Kinase CK-MB (CK-2) Rel Index Troponin T Albumin LDL Cholesterol Direct PTH Intact Salicylates Acetaminophen Crossmatch 03/19/19 03/19/19 03/19/19 05:22 05:35 08:54 WBC RBC Hgb Hct MCV MCH MCHC RDW Plt Count Lymph % (Auto) Riley % (Auto) Eos % (Auto) Lymph # Riley # Eos # Seg Neutrophils % Seg Neuts % (Manual) Lymphocytes % (Manual) Eosinophils % (Manual) Seg Neutrophils # Lymphocytes # (Manual) Eosinophils # (Manual) PT INR D-Dimer POC ABG pH POC ABG pCO2 POC ABG pO2 ABG pO2 ABG HCO3 ABG Base Excess ABG Hemoglobin Oxyhemoglobin Sodium Potassium Chloride Carbon Dioxide BUN Creatinine Glucose POC Glucose 167 H Calcium Phosphorus Magnesium ALT Alkaline Phosphatase Total Creatine Kinase CK-MB (CK-2) Rel Index Troponin T Albumin LDL Cholesterol Direct PTH Intact Salicylates Acetaminophen Crossmatch See Detail See Detail 03/19/19 03/19/19 03/19/19 12:36 17:02 23:25 WBC RBC Hgb Hct MCV MCH MCHC RDW Plt Count Lymph % (Auto) Riley % (Auto) Eos % (Auto) Lymph # Riley # Eos # Seg Neutrophils % Seg Neuts % (Manual) Lymphocytes % (Manual) Eosinophils % (Manual) Seg Neutrophils # Lymphocytes # (Manual) Eosinophils # (Manual) PT INR D-Dimer POC ABG pH POC ABG pCO2 POC ABG pO2 ABG pO2 ABG HCO3 ABG Base Excess ABG Hemoglobin Oxyhemoglobin Sodium Potassium Chloride Carbon Dioxide BUN Creatinine Glucose POC Glucose 167 H 135 H 136 H Calcium Phosphorus Magnesium ALT Alkaline Phosphatase Total Creatine Kinase CK-MB (CK-2) Rel Index Troponin T Albumin LDL Cholesterol Direct PTH Intact Salicylates Acetaminophen Crossmatch 03/20/19 03/20/1919 05:38 08:40 08:40 WBC RBC 2.61 L Hgb 7.1 L Hct 22.0 L MCV MCH 27 L MCHC RDW 19.6 H Plt Count Lymph % (Auto) 8.2 L Riley % (Auto) 8.3 H Eos % (Auto) 5.7 H Lymph # 0.8 L Riley # Eos # 0.5 H Seg Neutrophils % 77.3 H Seg Neuts % (Manual) Lymphocytes % (Manual) Eosinophils % (Manual) Seg Neutrophils # Lymphocytes # (Manual) Eosinophils # (Manual) PT INR D-Dimer POC ABG pH POC ABG pCO2 POC ABG pO2 ABG pO2 ABG HCO3 ABG Base Excess ABG Hemoglobin Oxyhemoglobin Sodium Potassium Chloride 95.9 L Carbon Dioxide BUN 69 H Creatinine 2.8 H Glucose 115 H POC Glucose 134 H Calcium 10.5 H Phosphorus Magnesium ALT Alkaline Phosphatase Total Creatine Kinase CK-MB (CK-2) Rel Index Troponin T Albumin LDL Cholesterol Direct PTH Intact Salicylates Acetaminophen Crossmatch 03/20/19 03/20/19 03/20/19 12:13 18:04 23:49 WBC RBC Hgb Hct MCV MCH MCHC RDW Plt Count Lymph % (Auto) Riley % (Auto) Eos % (Auto) Lymph # Riley # Eos # Seg Neutrophils % Seg Neuts % (Manual) Lymphocytes % (Manual) Eosinophils % (Manual) Seg Neutrophils # Lymphocytes # (Manual) Eosinophils # (Manual) PT INR D-Dimer POC ABG pH POC ABG pCO2 POC ABG pO2 ABG pO2 ABG HCO3 ABG Base Excess ABG Hemoglobin Oxyhemoglobin Sodium Potassium Chloride Carbon Dioxide BUN Creatinine Glucose POC Glucose 144 H 165 H 172 H Calcium Phosphorus Magnesium ALT Alkaline Phosphatase Total Creatine Kinase CK-MB (CK-2) Rel Index Troponin T Albumin LDL Cholesterol Direct PTH Intact Salicylates Acetaminophen Crossmatch 03/21/19 03/21/19 03/21/19 05:00 06:29 06:30 WBC RBC 2.72 L Hgb 7.4 L Hct 22.9 L MCV MCH 27 L MCHC RDW 19.4 H Plt Count Lymph % (Auto) Riley % (Auto) Eos % (Auto) Lymph # Riley # Eos # Seg Neutrophils % Seg Neuts % (Manual) 81.0 H Lymphocytes % (Manual) 8.0 L Eosinophils % (Manual) 8.0 H Seg Neutrophils # Lymphocytes # (Manual) 0.7 L Eosinophils # (Manual) 0.7 H PT INR D-Dimer POC ABG pH POC ABG pCO2 POC ABG pO2 ABG pO2 ABG HCO3 ABG Base Excess ABG Hemoglobin Oxyhemoglobin Sodium Potassium Chloride Carbon Dioxide 33 H BUN 43 H Creatinine 1.7 H Glucose 145 H POC Glucose 156 H Calcium Phosphorus Magnesium ALT Alkaline Phosphatase 212 H Total Creatine Kinase CK-MB (CK-2) Rel Index Troponin T Albumin 2.2 L LDL Cholesterol Direct PTH Intact Salicylates Acetaminophen Crossmatch 03/21/19 03/21/19 03/22/19 12:02 18:07 00:21 WBC RBC Hgb Hct MCV MCH MCHC RDW Plt Count Lymph % (Auto) Riley % (Auto) Eos % (Auto) Lymph # Riley # Eos # Seg Neutrophils % Seg Neuts % (Manual) Lymphocytes % (Manual) Eosinophils % (Manual) Seg Neutrophils # Lymphocytes # (Manual) Eosinophils # (Manual) PT INR D-Dimer POC ABG pH POC ABG pCO2 POC ABG pO2 ABG pO2 ABG HCO3 ABG Base Excess ABG Hemoglobin Oxyhemoglobin Sodium Potassium Chloride Carbon Dioxide BUN Creatinine Glucose POC Glucose 163 H 144 H 153 H Calcium Phosphorus Magnesium ALT Alkaline Phosphatase Total Creatine Kinase CK-MB (CK-2) Rel Index Troponin T Albumin LDL Cholesterol Direct PTH Intact Salicylates Acetaminophen Crossmatch 03/22/19 03/22/19 03/22/19 05:23 05:23 05:31 WBC RBC 2.58 L Hgb 7.1 L Hct 21.8 L MCV MCH 27 L MCHC RDW 19.2 H Plt Count Lymph % (Auto) Riley % (Auto) Eos % (Auto) Lymph # Riley # Eos # Seg Neutrophils % Seg Neuts % (Manual) Lymphocytes % (Manual) Eosinophils % (Manual) Seg Neutrophils # Lymphocytes # (Manual) Eosinophils # (Manual) PT INR D-Dimer POC ABG pH POC ABG pCO2 POC ABG pO2 ABG pO2 ABG HCO3 ABG Base Excess ABG Hemoglobin Oxyhemoglobin Sodium 147 H Potassium Chloride Carbon Dioxide BUN 68 H Creatinine 2.5 H Glucose POC Glucose 116 H Calcium 10.3 H Phosphorus Magnesium ALT Alkaline Phosphatase Total Creatine Kinase CK-MB (CK-2) Rel Index Troponin T Albumin LDL Cholesterol Direct PTH Intact Salicylates Acetaminophen Crossmatch 03/22/19 03/22/1919 08:48 12:37 17:35 WBC RBC Hgb Hct MCV MCH MCHC RDW Plt Count Lymph % (Auto) Riley % (Auto) Eos % (Auto) Lymph # Riley # Eos # Seg Neutrophils % Seg Neuts % (Manual) Lymphocytes % (Manual) Eosinophils % (Manual) Seg Neutrophils # Lymphocytes # (Manual) Eosinophils # (Manual) PT INR D-Dimer POC ABG pH POC ABG pCO2 POC ABG pO2 ABG pO2 ABG HCO3 ABG Base Excess ABG Hemoglobin Oxyhemoglobin Sodium Potassium Chloride Carbon Dioxide BUN Creatinine Glucose POC Glucose 143 H 155 H Calcium Phosphorus Magnesium ALT Alkaline Phosphatase Total Creatine Kinase CK-MB (CK-2) Rel Index Troponin T Albumin LDL Cholesterol Direct PTH Intact Salicylates Acetaminophen Crossmatch See Detail 03/23/19 03/23/19 03/23/19 00:07 04:00 04:00 WBC 11.2 H RBC 2.32 L Hgb 6.4 L Hct 19.7 L* MCV MCH MCHC RDW 19.4 H Plt Count Lymph % (Auto) Riley % (Auto) Eos % (Auto) Lymph # Riley # Eos # Seg Neutrophils % Seg Neuts % (Manual) Lymphocytes % (Manual) Eosinophils % (Manual) Seg Neutrophils # Lymphocytes # (Manual) Eosinophils # (Manual) PT INR D-Dimer POC ABG pH POC ABG pCO2 POC ABG pO2 ABG pO2 ABG HCO3 ABG Base Excess ABG Hemoglobin Oxyhemoglobin Sodium 147 H Potassium 5.2 H Chloride Carbon Dioxide BUN 86 H Creatinine 3.2 H Glucose 128 H POC Glucose 135 H Calcium 10.3 H Phosphorus Magnesium ALT Alkaline Phosphatase Total Creatine Kinase CK-MB (CK-2) Rel Index Troponin T Albumin LDL Cholesterol Direct PTH Intact Salicylates Acetaminophen Crossmatch 03/23/19 03/23/19 03/23/19 05:21 11:36 11:36 WBC RBC Hgb 7.9 L Hct 25.0 L MCV MCH MCHC RDW Plt Count Lymph % (Auto) Riley % (Auto) Eos % (Auto) Lymph # Riley # Eos # Seg Neutrophils % Seg Neuts % (Manual) Lymphocytes % (Manual) Eosinophils % (Manual) Seg Neutrophils # Lymphocytes # (Manual) Eosinophils # (Manual) PT INR D-Dimer POC ABG pH POC ABG pCO2 POC ABG pO2 ABG pO2 ABG HCO3 ABG Base Excess ABG Hemoglobin Oxyhemoglobin Sodium Potassium Chloride Carbon Dioxide BUN Creatinine Glucose POC Glucose 132 H 147 H Calcium Phosphorus Magnesium ALT Alkaline Phosphatase Total Creatine Kinase CK-MB (CK-2) Rel Index Troponin T Albumin LDL Cholesterol Direct PTH Intact Salicylates Acetaminophen Crossmatch 03/23/19 03/24/19 03/24/19 17:31 01:22 04:20 WBC 12.2 H RBC 3.05 L Hgb 8.3 L Hct 25.9 L MCV MCH 27 L MCHC RDW 18.7 H Plt Count Lymph % (Auto) Riley % (Auto) Eos % (Auto) Lymph # Riley # Eos # Seg Neutrophils % Seg Neuts % (Manual) Lymphocytes % (Manual) Eosinophils % (Manual) Seg Neutrophils # Lymphocytes # (Manual) Eosinophils # (Manual) PT INR D-Dimer POC ABG pH POC ABG pCO2 POC ABG pO2 ABG pO2 ABG HCO3 ABG Base Excess ABG Hemoglobin Oxyhemoglobin Sodium Potassium Chloride Carbon Dioxide BUN Creatinine Glucose POC Glucose 182 H 113 H Calcium Phosphorus Magnesium ALT Alkaline Phosphatase Total Creatine Kinase CK-MB (CK-2) Rel Index Troponin T Albumin LDL Cholesterol Direct PTH Intact Salicylates Acetaminophen Crossmatch 03/24/19 03/24/19 03/24/19 04:20 11:59 18:14 WBC RBC Hgb Hct MCV MCH MCHC RDW Plt Count Lymph % (Auto) Riley % (Auto) Eos % (Auto) Lymph # Riley # Eos # Seg Neutrophils % Seg Neuts % (Manual) Lymphocytes % (Manual) Eosinophils % (Manual) Seg Neutrophils # Lymphocytes # (Manual) Eosinophils # (Manual) PT INR D-Dimer POC ABG pH POC ABG pCO2 POC ABG pO2 ABG pO2 ABG HCO3 ABG Base Excess ABG Hemoglobin Oxyhemoglobin Sodium Potassium Chloride 94.8 L Carbon Dioxide 32 H BUN 53 H Creatinine 2.3 H Glucose POC Glucose 163 H 134 H Calcium Phosphorus Magnesium ALT Alkaline Phosphatase Total Creatine Kinase CK-MB (CK-2) Rel Index Troponin T Albumin LDL Cholesterol Direct PTH Intact Salicylates Acetaminophen Crossmatch 03/24/19 03/25/19 03/25/19 23:15 05:52 12:02 WBC RBC Hgb Hct MCV MCH MCHC RDW Plt Count Lymph % (Auto) Riley % (Auto) Eos % (Auto) Lymph # Riley # Eos # Seg Neutrophils % Seg Neuts % (Manual) Lymphocytes % (Manual) Eosinophils % (Manual) Seg Neutrophils # Lymphocytes # (Manual) Eosinophils # (Manual) PT INR D-Dimer POC ABG pH POC ABG pCO2 POC ABG pO2 ABG pO2 ABG HCO3 ABG Base Excess ABG Hemoglobin Oxyhemoglobin Sodium Potassium Chloride Carbon Dioxide BUN Creatinine Glucose POC Glucose 129 H 123 H 125 H Calcium Phosphorus Magnesium ALT Alkaline Phosphatase Total Creatine Kinase CK-MB (CK-2) Rel Index Troponin T Albumin LDL Cholesterol Direct PTH Intact Salicylates Acetaminophen Crossmatch 03/25/19 03/26/19 03/26/19 17:27 00:30 05:35 WBC RBC 3.01 L Hgb 8.1 L Hct 25.7 L MCV MCH 27 L MCHC RDW 19.2 H Plt Count Lymph % (Auto) 11.4 L Riley % (Auto) Eos % (Auto) 8.0 H Lymph # 1.0 L Riley # Eos # 0.7 H Seg Neutrophils % 73.9 H Seg Neuts % (Manual) Lymphocytes % (Manual) Eosinophils % (Manual) Seg Neutrophils # Lymphocytes # (Manual) Eosinophils # (Manual) PT INR D-Dimer POC ABG pH POC ABG pCO2 POC ABG pO2 ABG pO2 ABG HCO3 ABG Base Excess ABG Hemoglobin Oxyhemoglobin Sodium Potassium Chloride Carbon Dioxide BUN Creatinine Glucose POC Glucose 130 H 129 H Calcium Phosphorus Magnesium ALT Alkaline Phosphatase Total Creatine Kinase CK-MB (CK-2) Rel Index Troponin T Albumin LDL Cholesterol Direct PTH Intact Salicylates Acetaminophen Crossmatch 03/26/19 03/26/19 03/26/19 05:35 05:45 12:16 WBC RBC Hgb Hct MCV MCH MCHC RDW Plt Count Lymph % (Auto) Riley % (Auto) Eos % (Auto) Lymph # Riley # Eos # Seg Neutrophils % Seg Neuts % (Manual) Lymphocytes % (Manual) Eosinophils % (Manual) Seg Neutrophils # Lymphocytes # (Manual) Eosinophils # (Manual) PT INR D-Dimer POC ABG pH POC ABG pCO2 POC ABG pO2 ABG pO2 ABG HCO3 ABG Base Excess ABG Hemoglobin Oxyhemoglobin Sodium Potassium Chloride 94.9 L Carbon Dioxide 31 H BUN 44 H Creatinine 2.0 H Glucose POC Glucose 118 H 107 H Calcium Phosphorus Magnesium ALT Alkaline Phosphatase Total Creatine Kinase CK-MB (CK-2) Rel Index Troponin T Albumin LDL Cholesterol Direct PTH Intact Salicylates Acetaminophen Crossmatch 03/26/19 03/27/19 03/27/19 17:56 00:36 05:37 WBC RBC Hgb Hct MCV MCH MCHC RDW Plt Count Lymph % (Auto) Riley % (Auto) Eos % (Auto) Lymph # Riley # Eos # Seg Neutrophils % Seg Neuts % (Manual) Lymphocytes % (Manual) Eosinophils % (Manual) Seg Neutrophils # Lymphocytes # (Manual) Eosinophils # (Manual) PT INR D-Dimer POC ABG pH POC ABG pCO2 POC ABG pO2 ABG pO2 ABG HCO3 ABG Base Excess ABG Hemoglobin Oxyhemoglobin Sodium Potassium Chloride Carbon Dioxide BUN Creatinine Glucose POC Glucose 107 H 110 H 122 H Calcium Phosphorus Magnesium ALT Alkaline Phosphatase Total Creatine Kinase CK-MB (CK-2) Rel Index Troponin T Albumin LDL Cholesterol Direct PTH Intact Salicylates Acetaminophen Crossmatch 03/27/19 03/27/19 03/28/19 11:22 18:00 05:17 WBC RBC Hgb Hct MCV MCH MCHC RDW Plt Count Lymph % (Auto) Riley % (Auto) Eos % (Auto) Lymph # Riley # Eos # Seg Neutrophils % Seg Neuts % (Manual) Lymphocytes % (Manual) Eosinophils % (Manual) Seg Neutrophils # Lymphocytes # (Manual) Eosinophils # (Manual) PT INR D-Dimer POC ABG pH POC ABG pCO2 POC ABG pO2 ABG pO2 ABG HCO3 ABG Base Excess ABG Hemoglobin Oxyhemoglobin Sodium Potassium Chloride Carbon Dioxide BUN Creatinine Glucose POC Glucose 120 H 111 H 107 H Calcium Phosphorus Magnesium ALT Alkaline Phosphatase Total Creatine Kinase CK-MB (CK-2) Rel Index Troponin T Albumin LDL Cholesterol Direct PTH Intact Salicylates Acetaminophen Crossmatch 03/28/19 03/28/19 03/29/19 12:27 18:08 05:47 WBC RBC Hgb Hct MCV MCH MCHC RDW Plt Count Lymph % (Auto) Riley % (Auto) Eos % (Auto) Lymph # Riley # Eos # Seg Neutrophils % Seg Neuts % (Manual) Lymphocytes % (Manual) Eosinophils % (Manual) Seg Neutrophils # Lymphocytes # (Manual) Eosinophils # (Manual) PT INR D-Dimer POC ABG pH POC ABG pCO2 POC ABG pO2 ABG pO2 ABG HCO3 ABG Base Excess ABG Hemoglobin Oxyhemoglobin Sodium Potassium Chloride Carbon Dioxide BUN Creatinine Glucose POC Glucose 114 H 121 H 112 H Calcium Phosphorus Magnesium ALT Alkaline Phosphatase Total Creatine Kinase CK-MB (CK-2) Rel Index Troponin T Albumin LDL Cholesterol Direct PTH Intact Salicylates Acetaminophen Crossmatch 03/29/19 03/29/19 03/30/19 12:14 18:08 00:31 WBC RBC Hgb Hct MCV MCH MCHC RDW Plt Count Lymph % (Auto) Riley % (Auto) Eos % (Auto) Lymph # Riley # Eos # Seg Neutrophils % Seg Neuts % (Manual) Lymphocytes % (Manual) Eosinophils % (Manual) Seg Neutrophils # Lymphocytes # (Manual) Eosinophils # (Manual) PT INR D-Dimer POC ABG pH POC ABG pCO2 POC ABG pO2 ABG pO2 ABG HCO3 ABG Base Excess ABG Hemoglobin Oxyhemoglobin Sodium Potassium Chloride Carbon Dioxide BUN Creatinine Glucose POC Glucose 117 H 140 H 114 H Calcium Phosphorus Magnesium ALT Alkaline Phosphatase Total Creatine Kinase CK-MB (CK-2) Rel Index Troponin T Albumin LDL Cholesterol Direct PTH Intact Salicylates Acetaminophen Crossmatch 03/30/19 03/30/19 03/30/19 10:13 10:13 23:53 WBC RBC 2.81 L Hgb 7.7 L Hct 24.3 L MCV MCH 27 L MCHC RDW 19.0 H Plt Count Lymph % (Auto) 12.2 L Riley % (Auto) Eos % (Auto) 7.9 H Lymph # 1.0 L Riley # Eos # 0.6 H Seg Neutrophils % 72.3 H Seg Neuts % (Manual) Lymphocytes % (Manual) Eosinophils % (Manual) Seg Neutrophils # Lymphocytes # (Manual) Eosinophils # (Manual) PT INR D-Dimer POC ABG pH POC ABG pCO2 POC ABG pO2 ABG pO2 ABG HCO3 ABG Base Excess ABG Hemoglobin Oxyhemoglobin Sodium Potassium 5.1 H Chloride 96.5 L Carbon Dioxide BUN 73 H Creatinine 3.9 H D Glucose POC Glucose 114 H Calcium 10.3 H Phosphorus 6.30 H Magnesium 2.70 H ALT Alkaline Phosphatase 185 H Total Creatine Kinase CK-MB (CK-2) Rel Index Troponin T Albumin 2.6 L LDL Cholesterol Direct PTH Intact Salicylates Acetaminophen Crossmatch 03/31/19 03/31/19 03/31/19 05:45 10:26 10:26 WBC RBC 3.01 L Hgb 8.2 L Hct 26.4 L MCV MCH 27 L MCHC 31 L RDW 20.3 H Plt Count Lymph % (Auto) 13.3 L Riley % (Auto) Eos % (Auto) 7.2 H Lymph # 1.1 L Riley # Eos # 0.6 H Seg Neutrophils % 72.1 H Seg Neuts % (Manual) Lymphocytes % (Manual) Eosinophils % (Manual) Seg Neutrophils # Lymphocytes # (Manual) Eosinophils # (Manual) PT INR D-Dimer POC ABG pH POC ABG pCO2 POC ABG pO2 ABG pO2 ABG HCO3 ABG Base Excess ABG Hemoglobin Oxyhemoglobin Sodium Potassium Chloride 96.9 L Carbon Dioxide 33 H BUN 37 H Creatinine 2.4 H Glucose POC Glucose 108 H Calcium 10.3 H Phosphorus Magnesium ALT Alkaline Phosphatase Total Creatine Kinase CK-MB (CK-2) Rel Index Troponin T Albumin LDL Cholesterol Direct PTH Intact Salicylates Acetaminophen Crossmatch 03/31/19 04/01/19 04/01/19 12:38 05:48 12:06 WBC RBC Hgb Hct MCV MCH MCHC RDW Plt Count Lymph % (Auto) Riley % (Auto) Eos % (Auto) Lymph # Riley # Eos # Seg Neutrophils % Seg Neuts % (Manual) Lymphocytes % (Manual) Eosinophils % (Manual) Seg Neutrophils # Lymphocytes # (Manual) Eosinophils # (Manual) PT INR D-Dimer POC ABG pH POC ABG pCO2 POC ABG pO2 ABG pO2 ABG HCO3 ABG Base Excess ABG Hemoglobin Oxyhemoglobin Sodium Potassium Chloride Carbon Dioxide BUN Creatinine Glucose POC Glucose 108 H 114 H 111 H Calcium Phosphorus Magnesium ALT Alkaline Phosphatase Total Creatine Kinase CK-MB (CK-2) Rel Index Troponin T Albumin LDL Cholesterol Direct PTH Intact Salicylates Acetaminophen Crossmatch 04/01/19 04/02/19 04/04/19 18:24 00:36 23:55 WBC RBC Hgb Hct MCV MCH MCHC RDW Plt Count Lymph % (Auto) Riley % (Auto) Eos % (Auto) Lymph # Riley # Eos # Seg Neutrophils % Seg Neuts % (Manual) Lymphocytes % (Manual) Eosinophils % (Manual) Seg Neutrophils # Lymphocytes # (Manual) Eosinophils # (Manual) PT INR D-Dimer POC ABG pH POC ABG pCO2 POC ABG pO2 ABG pO2 ABG HCO3 ABG Base Excess ABG Hemoglobin Oxyhemoglobin Sodium Potassium Chloride Carbon Dioxide BUN Creatinine Glucose POC Glucose 113 H 117 H 109 H Calcium Phosphorus Magnesium ALT Alkaline Phosphatase Total Creatine Kinase CK-MB (CK-2) Rel Index Troponin T Albumin LDL Cholesterol Direct PTH Intact Salicylates Acetaminophen Crossmatch 04/06/19 04/06/19 04/06/19 00:11 06:02 23:30 WBC RBC Hgb Hct MCV MCH MCHC RDW Plt Count Lymph % (Auto) Riley % (Auto) Eos % (Auto) Lymph # Riley # Eos # Seg Neutrophils % Seg Neuts % (Manual) Lymphocytes % (Manual) Eosinophils % (Manual) Seg Neutrophils # Lymphocytes # (Manual) Eosinophils # (Manual) PT INR D-Dimer POC ABG pH POC ABG pCO2 POC ABG pO2 ABG pO2 ABG HCO3 ABG Base Excess ABG Hemoglobin Oxyhemoglobin Sodium Potassium Chloride Carbon Dioxide BUN Creatinine Glucose POC Glucose 116 H 112 H 112 H Calcium Phosphorus Magnesium ALT Alkaline Phosphatase Total Creatine Kinase CK-MB (CK-2) Rel Index Troponin T Albumin LDL Cholesterol Direct PTH Intact Salicylates Acetaminophen Crossmatch 04/08/19 04/08/19 04/08/19 02:23 06:19 13:01 WBC RBC Hgb Hct MCV MCH MCHC RDW Plt Count Lymph % (Auto) Riley % (Auto) Eos % (Auto) Lymph # Riley # Eos # Seg Neutrophils % Seg Neuts % (Manual) Lymphocytes % (Manual) Eosinophils % (Manual) Seg Neutrophils # Lymphocytes # (Manual) Eosinophils # (Manual) PT INR D-Dimer POC ABG pH POC ABG pCO2 POC ABG pO2 ABG pO2 ABG HCO3 ABG Base Excess ABG Hemoglobin Oxyhemoglobin Sodium Potassium Chloride Carbon Dioxide BUN Creatinine Glucose POC Glucose 144 H 126 H 118 H Calcium Phosphorus Magnesium ALT Alkaline Phosphatase Total Creatine Kinase CK-MB (CK-2) Rel Index Troponin T Albumin LDL Cholesterol Direct PTH Intact Salicylates Acetaminophen Crossmatch 04/08/19 04/09/19 04/10/19 23:28 05:52 06:34 WBC RBC Hgb Hct MCV MCH MCHC RDW Plt Count Lymph % (Auto) [place] % (Auto) Eos % (Auto) Lymph # Riley # Eos # Seg Neutrophils % Seg Neuts % (Manual) Lymphocytes % (Manual) Eosinophils % (Manual) Seg Neutrophils # Lymphocytes # (Manual) Eosinophils # (Manual) PT INR D-Dimer POC ABG pH POC ABG pCO2 POC ABG pO2 ABG pO2 ABG HCO3 ABG Base Excess ABG Hemoglobin Oxyhemoglobin Sodium Potassium Chloride Carbon Dioxide BUN Creatinine Glucose POC Glucose 119 H 116 H 114 H Calcium Phosphorus Magnesium ALT Alkaline Phosphatase Total Creatine Kinase CK-MB (CK-2) Rel Index Troponin T Albumin LDL Cholesterol Direct PTH Intact Salicylates Acetaminophen Crossmatch 04/10/19 04/10/19 04/11/19 12:34 18:59 00:36 WBC RBC Hgb Hct MCV MCH MCHC RDW Plt Count Lymph % (Auto) [place] % (Auto) Eos % (Auto) Lymph # Riley # Eos # Seg Neutrophils % Seg Neuts % (Manual) Lymphocytes % (Manual) Eosinophils % (Manual) Seg Neutrophils # Lymphocytes # (Manual) Eosinophils # (Manual) PT INR D-Dimer POC ABG pH POC ABG pCO2 POC ABG pO2 ABG pO2 ABG HCO3 ABG Base Excess ABG Hemoglobin Oxyhemoglobin Sodium Potassium Chloride Carbon Dioxide BUN Creatinine Glucose POC Glucose 112 H 109 H 124 H Calcium Phosphorus Magnesium ALT Alkaline Phosphatase Total Creatine Kinase CK-MB (CK-2) Rel Index Troponin T Albumin LDL Cholesterol Direct PTH Intact Salicylates Acetaminophen Crossmatch 04/11/19 04/11/19 04/12/19 08:01 17:25 02:18 WBC RBC Hgb Hct MCV MCH MCHC RDW Plt Count Lymph % (Auto) [place] % (Auto) Eos % (Auto) Lymph # Riley # Eos # Seg Neutrophils % Seg Neuts % (Manual) Lymphocytes % (Manual) Eosinophils % (Manual) Seg Neutrophils # Lymphocytes # (Manual) Eosinophils # (Manual) PT INR D-Dimer POC ABG pH POC ABG pCO2 POC ABG pO2 ABG pO2 ABG HCO3 ABG Base Excess ABG Hemoglobin Oxyhemoglobin Sodium Potassium Chloride Carbon Dioxide BUN Creatinine Glucose POC Glucose 118 H 106 H 125 H Calcium Phosphorus Magnesium ALT Alkaline Phosphatase Total Creatine Kinase CK-MB (CK-2) Rel Index Troponin T Albumin LDL Cholesterol Direct PTH Intact Salicylates Acetaminophen Crossmatch 04/12/19 04/12/19 04/12/19 06:24 12:22 17:13 WBC RBC Hgb Hct MCV MCH MCHC RDW Plt Count Lymph % (Auto) [place] % (Auto) Eos % (Auto) Lymph # Riley # Eos # Seg Neutrophils % Seg Neuts % (Manual) Lymphocytes % (Manual) Eosinophils % (Manual) Seg Neutrophils # Lymphocytes # (Manual) Eosinophils # (Manual) PT INR D-Dimer POC ABG pH POC ABG pCO2 POC ABG pO2 ABG pO2 ABG HCO3 ABG Base Excess ABG Hemoglobin Oxyhemoglobin Sodium Potassium Chloride Carbon Dioxide BUN Creatinine Glucose POC Glucose 128 H 114 H 110 H Calcium Phosphorus Magnesium ALT Alkaline Phosphatase Total Creatine Kinase CK-MB (CK-2) Rel Index Troponin T Albumin LDL Cholesterol Direct PTH Intact Salicylates Acetaminophen Crossmatch 04/13/19 04/13/19 04/13/19 06:59 07:31 07:31 WBC RBC 3.34 L Hgb 8.9 L Hct 28.6 L MCV MCH 27 L MCHC 31 L RDW 19.6 H Plt Count Lymph % (Auto) Riley % (Auto) Eos % (Auto) Lymph # Riley # Eos # Seg Neutrophils % Seg Neuts % (Manual) Lymphocytes % (Manual) Eosinophils % (Manual) Seg Neutrophils # Lymphocytes # (Manual) Eosinophils # (Manual) PT INR D-Dimer POC ABG pH POC ABG pCO2 POC ABG pO2 ABG pO2 ABG HCO3 ABG Base Excess ABG Hemoglobin Oxyhemoglobin Sodium Potassium Chloride 96.4 L Carbon Dioxide 33 H BUN 66 H Creatinine 4.5 H Glucose 103 H POC Glucose 107 H Calcium Phosphorus Magnesium ALT Alkaline Phosphatase Total Creatine Kinase CK-MB (CK-2) Rel Index Troponin T Albumin LDL Cholesterol Direct PTH Intact Salicylates Acetaminophen Crossmatch 04/13/19 04/14/19 04/14/19 23:43 05:50 13:07 WBC RBC Hgb Hct MCV MCH MCHC RDW Plt Count Lymph % (Auto) [place] % (Auto) Eos % (Auto) Lymph # Riley # Eos # Seg Neutrophils % Seg Neuts % (Manual) Lymphocytes % (Manual) Eosinophils % (Manual) Seg Neutrophils # Lymphocytes # (Manual) Eosinophils # (Manual) PT INR D-Dimer POC ABG pH POC ABG pCO2 POC ABG pO2 ABG pO2 ABG HCO3 ABG Base Excess ABG Hemoglobin Oxyhemoglobin Sodium Potassium Chloride Carbon Dioxide BUN Creatinine Glucose POC Glucose 119 H 112 H 112 H Calcium Phosphorus Magnesium ALT Alkaline Phosphatase Total Creatine Kinase CK-MB (CK-2) Rel Index Troponin T Albumin LDL Cholesterol Direct PTH Intact Salicylates Acetaminophen Crossmatch 04/14/19 04/15/19 04/15/19 18:35 01:18 05:17 WBC RBC Hgb Hct MCV MCH MCHC RDW Plt Count Lymph % (Auto) [place] % (Auto) Eos % (Auto) Lymph # Riley # Eos # Seg Neutrophils % Seg Neuts % (Manual) Lymphocytes % (Manual) Eosinophils % (Manual) Seg Neutrophils # Lymphocytes # (Manual) Eosinophils # (Manual) PT INR D-Dimer POC ABG pH POC ABG pCO2 POC ABG pO2 ABG pO2 ABG HCO3 ABG Base Excess ABG Hemoglobin Oxyhemoglobin Sodium Potassium Chloride Carbon Dioxide BUN Creatinine Glucose POC Glucose 114 H 114 H 114 H Calcium Phosphorus Magnesium ALT Alkaline Phosphatase Total Creatine Kinase CK-MB (CK-2) Rel Index Troponin T Albumin LDL Cholesterol Direct PTH Intact Salicylates Acetaminophen Crossmatch 04/15/19 04/15/19 04/16/19 11:50 23:39 05:41 WBC RBC Hgb Hct MCV MCH MCHC RDW Plt Count Lymph % (Auto) [place] % (Auto) Eos % (Auto) Lymph # Riley # Eos # Seg Neutrophils % Seg Neuts % (Manual) Lymphocytes % (Manual) Eosinophils % (Manual) Seg Neutrophils # Lymphocytes # (Manual) Eosinophils # (Manual) PT INR D-Dimer POC ABG pH POC ABG pCO2 POC ABG pO2 ABG pO2 ABG HCO3 ABG Base Excess ABG Hemoglobin Oxyhemoglobin Sodium Potassium Chloride Carbon Dioxide BUN Creatinine Glucose POC Glucose 109 H 115 H 125 H Calcium Phosphorus Magnesium ALT Alkaline Phosphatase Total Creatine Kinase CK-MB (CK-2) Rel Index Troponin T Albumin LDL Cholesterol Direct PTH Intact Salicylates Acetaminophen Crossmatch 04/16/19 04/17/19 04/17/19 12:53 01:00 12:38 WBC RBC Hgb Hct MCV MCH MCHC RDW Plt Count Lymph % (Auto) [place] % (Auto) Eos % (Auto) Lymph # Riley # Eos # Seg Neutrophils % Seg Neuts % (Manual) Lymphocytes % (Manual) Eosinophils % (Manual) Seg Neutrophils # Lymphocytes # (Manual) Eosinophils # (Manual) PT INR D-Dimer POC ABG pH POC ABG pCO2 POC ABG pO2 ABG pO2 ABG HCO3 ABG Base Excess ABG Hemoglobin Oxyhemoglobin Sodium Potassium Chloride Carbon Dioxide BUN Creatinine Glucose POC Glucose 121 H 127 H 159 H Calcium Phosphorus Magnesium ALT Alkaline Phosphatase Total Creatine Kinase CK-MB (CK-2) Rel Index Troponin T Albumin LDL Cholesterol Direct PTH Intact Salicylates Acetaminophen Crossmatch 04/17/19 04/17/19 04/18/19 18:27 23:36 07:19 WBC RBC 3.49 L Hgb 9.0 L Hct 29.9 L MCV MCH 26 L MCHC 30 L RDW 20.0 H Plt Count Lymph % (Auto) Riley % (Auto) Eos % (Auto) Lymph # Riley # Eos # Seg Neutrophils % Seg Neuts % (Manual) Lymphocytes % (Manual) Eosinophils % (Manual) Seg Neutrophils # Lymphocytes # (Manual) Eosinophils # (Manual) PT INR D-Dimer POC ABG pH POC ABG pCO2 POC ABG pO2 ABG pO2 ABG HCO3 ABG Base Excess ABG Hemoglobin Oxyhemoglobin Sodium Potassium Chloride Carbon Dioxide BUN Creatinine Glucose POC Glucose 109 H 134 H Calcium Phosphorus Magnesium ALT Alkaline Phosphatase Total Creatine Kinase CK-MB (CK-2) Rel Index Troponin T Albumin LDL Cholesterol Direct PTH Intact Salicylates Acetaminophen Crossmatch 04/18/19 04/18/19 04/18/19 07:19 12:16 17:09 WBC RBC Hgb Hct MCV MCH MCHC RDW Plt Count Lymph % (Auto) [place] % (Auto) Eos % (Auto) Lymph # [place] # Eos # Seg Neutrophils % Seg Neuts % (Manual) Lymphocytes % (Manual) Eosinophils % (Manual) Seg Neutrophils # Lymphocytes # (Manual) Eosinophils # (Manual) PT INR D-Dimer POC ABG pH POC ABG pCO2 POC ABG pO2 ABG pO2 ABG HCO3 ABG Base Excess ABG Hemoglobin Oxyhemoglobin Sodium Potassium Chloride Carbon Dioxide BUN 41 H Creatinine 2.9 H Glucose 122 H POC Glucose 125 H 131 H Calcium Phosphorus Magnesium ALT Alkaline Phosphatase Total Creatine Kinase CK-MB (CK-2) Rel Index Troponin T Albumin LDL Cholesterol Direct PTH Intact Salicylates Acetaminophen Crossmatch 04/18/19 04/19/19 04/19/19 23:57 05:55 11:35 WBC RBC Hgb Hct MCV MCH MCHC RDW Plt Count Lymph % (Auto) [place] % (Auto) Eos % (Auto) Lymph # [place] # Eos # Seg Neutrophils % Seg Neuts % (Manual) Lymphocytes % (Manual) Eosinophils % (Manual) Seg Neutrophils # Lymphocytes # (Manual) Eosinophils # (Manual) PT INR D-Dimer POC ABG pH POC ABG pCO2 POC ABG pO2 ABG pO2 ABG HCO3 ABG Base Excess ABG Hemoglobin Oxyhemoglobin Sodium Potassium Chloride Carbon Dioxide BUN Creatinine Glucose POC Glucose 159 H 144 H 177 H Calcium Phosphorus Magnesium ALT Alkaline Phosphatase Total Creatine Kinase CK-MB (CK-2) Rel Index Troponin T Albumin LDL Cholesterol Direct PTH Intact Salicylates Acetaminophen Crossmatch 04/19/19 04/20/19 04/20/19 16:36 02:05 06:28 WBC RBC Hgb Hct MCV MCH MCHC RDW Plt Count Lymph % (Auto) [place] % (Auto) Eos % (Auto) Lymph # [place] # Eos # Seg Neutrophils % Seg Neuts % (Manual) Lymphocytes % (Manual) Eosinophils % (Manual) Seg Neutrophils # Lymphocytes # (Manual) Eosinophils # (Manual) PT INR D-Dimer POC ABG pH POC ABG pCO2 POC ABG pO2 ABG pO2 ABG HCO3 ABG Base Excess ABG Hemoglobin Oxyhemoglobin Sodium Potassium Chloride Carbon Dioxide BUN Creatinine Glucose POC Glucose 134 H 142 H 132 H Calcium Phosphorus Magnesium ALT Alkaline Phosphatase Total Creatine Kinase CK-MB (CK-2) Rel Index Troponin T Albumin LDL Cholesterol Direct PTH Intact Salicylates Acetaminophen Crossmatch 04/20/19 04/20/19 04/21/19 12:37 23:34 05:59 WBC RBC Hgb Hct MCV MCH MCHC RDW Plt Count Lymph % (Auto) [place] % (Auto) Eos % (Auto) Lymph # [place] # Eos # Seg Neutrophils % Seg Neuts % (Manual) Lymphocytes % (Manual) Eosinophils % (Manual) Seg Neutrophils # Lymphocytes # (Manual) Eosinophils # (Manual) PT INR D-Dimer POC ABG pH POC ABG pCO2 POC ABG pO2 ABG pO2 ABG HCO3 ABG Base Excess ABG Hemoglobin Oxyhemoglobin Sodium Potassium Chloride Carbon Dioxide BUN Creatinine Glucose POC Glucose 163 H 166 H 140 H Calcium Phosphorus Magnesium ALT Alkaline Phosphatase Total Creatine Kinase CK-MB (CK-2) Rel Index Troponin T Albumin LDL Cholesterol Direct PTH Intact Salicylates Acetaminophen Crossmatch 04/21/19 04/21/19 04/21/19 12:07 17:22 23:43 WBC RBC Hgb Hct MCV MCH MCHC RDW Plt Count Lymph % (Auto) [place] % (Auto) Eos % (Auto) Lymph # [place] # Eos # Seg Neutrophils % Seg Neuts % (Manual) Lymphocytes % (Manual) Eosinophils % (Manual) Seg Neutrophils # Lymphocytes # (Manual) Eosinophils # (Manual) PT INR D-Dimer POC ABG pH POC ABG pCO2 POC ABG pO2 ABG pO2 ABG HCO3 ABG Base Excess ABG Hemoglobin Oxyhemoglobin Sodium Potassium Chloride Carbon Dioxide BUN Creatinine Glucose POC Glucose 135 H 141 H 138 H Calcium Phosphorus Magnesium ALT Alkaline Phosphatase Total Creatine Kinase CK-MB (CK-2) Rel Index Troponin T Albumin LDL Cholesterol Direct PTH Intact Salicylates Acetaminophen Crossmatch 04/22/19 04/22/19 04/22/19 05:12 18:24 23:49 WBC RBC Hgb Hct MCV MCH MCHC RDW Plt Count Lymph % (Auto) [place] % (Auto) Eos % (Auto) Lymph # [place] # Eos # Seg Neutrophils % Seg Neuts % (Manual) Lymphocytes % (Manual) Eosinophils % (Manual) Seg Neutrophils # Lymphocytes # (Manual) Eosinophils # (Manual) PT INR D-Dimer POC ABG pH POC ABG pCO2 POC ABG pO2 ABG pO2 ABG HCO3 ABG Base Excess ABG Hemoglobin Oxyhemoglobin Sodium Potassium Chloride Carbon Dioxide BUN Creatinine Glucose POC Glucose 141 H 137 H 142 H Calcium Phosphorus Magnesium ALT Alkaline Phosphatase Total Creatine Kinase CK-MB (CK-2) Rel Index Troponin T Albumin LDL Cholesterol Direct PTH Intact Salicylates Acetaminophen Crossmatch 04/23/19 04/23/19 04/23/19 05:53 08:13 11:58 WBC RBC Hgb Hct MCV MCH MCHC RDW Plt Count Lymph % (Auto) [place] % (Auto) Eos % (Auto) Lymph # [place] # Eos # Seg Neutrophils % Seg Neuts % (Manual) Lymphocytes % (Manual) Eosinophils % (Manual) Seg Neutrophils # Lymphocytes # (Manual) Eosinophils # (Manual) PT INR D-Dimer POC ABG pH POC ABG pCO2 POC ABG pO2 ABG pO2 ABG HCO3 ABG Base Excess ABG Hemoglobin Oxyhemoglobin Sodium Potassium Chloride Carbon Dioxide BUN Creatinine Glucose POC Glucose 132 H 154 H 165 H Calcium Phosphorus Magnesium ALT Alkaline Phosphatase Total Creatine Kinase CK-MB (CK-2) Rel Index Troponin T Albumin LDL Cholesterol Direct PTH Intact Salicylates Acetaminophen Crossmatch 04/23/19 04/24/19 04/24/19 16:28 00:28 07:00 WBC RBC Hgb Hct MCV MCH MCHC RDW Plt Count Lymph % (Auto) [place] % (Auto) Eos % (Auto) Lymph # [place] # Eos # Seg Neutrophils % Seg Neuts % (Manual) Lymphocytes % (Manual) Eosinophils % (Manual) Seg Neutrophils # Lymphocytes # (Manual) Eosinophils # (Manual) PT INR D-Dimer POC ABG pH POC ABG pCO2 POC ABG pO2 ABG pO2 ABG HCO3 ABG Base Excess ABG Hemoglobin Oxyhemoglobin Sodium Potassium Chloride Carbon Dioxide BUN Creatinine Glucose POC Glucose 136 H 140 H 141 H Calcium Phosphorus Magnesium ALT Alkaline Phosphatase Total Creatine Kinase CK-MB (CK-2) Rel Index Troponin T Albumin LDL Cholesterol Direct PTH Intact Salicylates Acetaminophen Crossmatch 04/24/19 04/24/19 04/25/19 12:38 18:57 00:38 WBC RBC Hgb Hct MCV MCH MCHC RDW Plt Count Lymph % (Auto) [place] % (Auto) Eos % (Auto) Lymph # [place] # Eos # Seg Neutrophils % Seg Neuts % (Manual) Lymphocytes % (Manual) Eosinophils % (Manual) Seg Neutrophils # Lymphocytes # (Manual) Eosinophils # (Manual) PT INR D-Dimer POC ABG pH POC ABG pCO2 POC ABG pO2 ABG pO2 ABG HCO3 ABG Base Excess ABG Hemoglobin Oxyhemoglobin Sodium Potassium Chloride Carbon Dioxide BUN Creatinine Glucose POC Glucose 152 H 166 H 128 H Calcium Phosphorus Magnesium ALT Alkaline Phosphatase Total Creatine Kinase CK-MB (CK-2) Rel Index Troponin T Albumin LDL Cholesterol Direct PTH Intact Salicylates Acetaminophen Crossmatch 04/25/19 04/25/19 04/25/19 05:44 13:43 18:34 WBC RBC Hgb Hct MCV MCH MCHC RDW Plt Count Lymph % (Auto) [place] % (Auto) Eos % (Auto) Lymph # [place] # Eos # Seg Neutrophils % Seg Neuts % (Manual) Lymphocytes % (Manual) Eosinophils % (Manual) Seg Neutrophils # Lymphocytes # (Manual) Eosinophils # (Manual) PT INR D-Dimer POC ABG pH POC ABG pCO2 POC ABG pO2 ABG pO2 ABG HCO3 ABG Base Excess ABG Hemoglobin Oxyhemoglobin Sodium Potassium Chloride Carbon Dioxide BUN Creatinine Glucose POC Glucose 153 H 186 H 124 H Calcium Phosphorus Magnesium ALT Alkaline Phosphatase Total Creatine Kinase CK-MB (CK-2) Rel Index Troponin T Albumin LDL Cholesterol Direct PTH Intact Salicylates Acetaminophen Crossmatch 04/26/19 04/26/19 04/26/19 00:59 05:52 10:12 WBC 11.5 H RBC 2.84 L Hgb 7.4 L Hct 23.3 L MCV 82 L MCH 26 L MCHC RDW 20.3 H Plt Count Lymph % (Auto) 7.5 L Riley % (Auto) 7.5 H Eos % (Auto) 5.3 H Lymph # 0.9 L Riley # 0.9 H Eos # 0.6 H Seg Neutrophils % 79.2 H Seg Neuts % (Manual) Lymphocytes % (Manual) Eosinophils % (Manual) Seg Neutrophils # 9.1 H Lymphocytes # (Manual) Eosinophils # (Manual) PT INR D-Dimer POC ABG pH POC ABG pCO2 POC ABG pO2 ABG pO2 ABG HCO3 ABG Base Excess ABG Hemoglobin Oxyhemoglobin Sodium Potassium Chloride Carbon Dioxide BUN Creatinine Glucose POC Glucose 163 H 146 H Calcium Phosphorus Magnesium ALT Alkaline Phosphatase Total Creatine Kinase CK-MB (CK-2) Rel Index Troponin T Albumin LDL Cholesterol Direct PTH Intact Salicylates Acetaminophen Crossmatch 04/26/19 04/26/19 04/26/19 10:12 12:15 19:00 WBC RBC Hgb Hct MCV MCH MCHC RDW Plt Count Lymph % (Auto) [place] % (Auto) Eos % (Auto) Lymph # [place] # Eos # Seg Neutrophils % Seg Neuts % (Manual) Lymphocytes % (Manual) Eosinophils % (Manual) Seg Neutrophils # Lymphocytes # (Manual) Eosinophils # (Manual) PT INR D-Dimer POC ABG pH POC ABG pCO2 POC ABG pO2 ABG pO2 ABG HCO3 ABG Base Excess ABG Hemoglobin Oxyhemoglobin Sodium 130 L Potassium Chloride 87.4 L Carbon Dioxide BUN 93 H Creatinine 4.2 H Glucose 140 H POC Glucose 155 H 179 H Calcium Phosphorus Magnesium ALT Alkaline Phosphatase Total Creatine Kinase CK-MB (CK-2) Rel Index Troponin T Albumin LDL Cholesterol Direct PTH Intact Salicylates Acetaminophen Crossmatch 04/27/19 04/27/19 04/27/19 00:23 06:34 17:13 WBC RBC Hgb Hct MCV MCH MCHC RDW Plt Count Lymph % (Auto) [place] % (Auto) Eos % (Auto) Lymph # Riley # Eos # Seg Neutrophils % Seg Neuts % (Manual) Lymphocytes % (Manual) Eosinophils % (Manual) Seg Neutrophils # Lymphocytes # (Manual) Eosinophils # (Manual) PT INR D-Dimer POC ABG pH POC ABG pCO2 POC ABG pO2 ABG pO2 ABG HCO3 ABG Base Excess ABG Hemoglobin Oxyhemoglobin Sodium Potassium Chloride Carbon Dioxide BUN Creatinine Glucose POC Glucose 158 H 140 H 152 H Calcium Phosphorus Magnesium ALT Alkaline Phosphatase Total Creatine Kinase CK-MB (CK-2) Rel Index Troponin T Albumin LDL Cholesterol Direct PTH Intact Salicylates Acetaminophen Crossmatch 04/27/19 04/28/19 04/28/19 23:50 05:18 11:37 WBC RBC Hgb Hct MCV MCH MCHC RDW Plt Count Lymph % (Auto) [place] % (Auto) Eos % (Auto) Lymph # Riley # Eos # Seg Neutrophils % Seg Neuts % (Manual) Lymphocytes % (Manual) Eosinophils % (Manual) Seg Neutrophils # Lymphocytes # (Manual) Eosinophils # (Manual) PT INR D-Dimer POC ABG pH POC ABG pCO2 POC ABG pO2 ABG pO2 ABG HCO3 ABG Base Excess ABG Hemoglobin Oxyhemoglobin Sodium Potassium Chloride Carbon Dioxide BUN Creatinine Glucose POC Glucose 160 H 145 H 177 H Calcium Phosphorus Magnesium ALT Alkaline Phosphatase Total Creatine Kinase CK-MB (CK-2) Rel Index Troponin T Albumin LDL Cholesterol Direct PTH Intact Salicylates Acetaminophen Crossmatch 04/28/19 04/28/19 04/29/19 18:31 23:47 05:50 WBC RBC Hgb Hct MCV MCH MCHC RDW Plt Count Lymph % (Auto) [place] % (Auto) Eos % (Auto) Lymph # Riley # Eos # Seg Neutrophils % Seg Neuts % (Manual) Lymphocytes % (Manual) Eosinophils % (Manual) Seg Neutrophils # Lymphocytes # (Manual) Eosinophils # (Manual) PT INR D-Dimer POC ABG pH POC ABG pCO2 POC ABG pO2 ABG pO2 ABG HCO3 ABG Base Excess ABG Hemoglobin Oxyhemoglobin Sodium Potassium Chloride Carbon Dioxide BUN Creatinine Glucose POC Glucose 153 H 117 H 177 H Calcium Phosphorus Magnesium ALT Alkaline Phosphatase Total Creatine Kinase CK-MB (CK-2) Rel Index Troponin T Albumin LDL Cholesterol Direct PTH Intact Salicylates Acetaminophen Crossmatch 04/29/19 04/30/19 04/30/19 17:04 01:02 06:42 WBC RBC Hgb Hct MCV MCH MCHC RDW Plt Count Lymph % (Auto) [place] % (Auto) Eos % (Auto) Lymph # Riley # Eos # Seg Neutrophils % Seg Neuts % (Manual) Lymphocytes % (Manual) Eosinophils % (Manual) Seg Neutrophils # Lymphocytes # (Manual) Eosinophils # (Manual) PT INR D-Dimer POC ABG pH POC ABG pCO2 POC ABG pO2 ABG pO2 ABG HCO3 ABG Base Excess ABG Hemoglobin Oxyhemoglobin Sodium Potassium Chloride Carbon Dioxide BUN Creatinine Glucose POC Glucose 205 H 143 H 145 H Calcium Phosphorus Magnesium ALT Alkaline Phosphatase Total Creatine Kinase CK-MB (CK-2) Rel Index Troponin T Albumin LDL Cholesterol Direct PTH Intact Salicylates Acetaminophen Crossmatch 04/30/19 04/30/19 04/30/19 11:31 18:12 23:38 WBC RBC Hgb Hct MCV MCH MCHC RDW Plt Count Lymph % (Auto) [place] % (Auto) Eos % (Auto) Lymph # Riley # Eos # Seg Neutrophils % Seg Neuts % (Manual) Lymphocytes % (Manual) Eosinophils % (Manual) Seg Neutrophils # Lymphocytes # (Manual) Eosinophils # (Manual) PT INR D-Dimer POC ABG pH POC ABG pCO2 POC ABG pO2 ABG pO2 ABG HCO3 ABG Base Excess ABG Hemoglobin Oxyhemoglobin Sodium Potassium Chloride Carbon Dioxide BUN Creatinine Glucose POC Glucose 162 H 117 H 139 H Calcium Phosphorus Magnesium ALT Alkaline Phosphatase Total Creatine Kinase CK-MB (CK-2) Rel Index Troponin T Albumin LDL Cholesterol Direct PTH Intact Salicylates Acetaminophen Crossmatch 05/01/19 05/01/19 05/02/19 06:06 23:41 05:59 WBC RBC Hgb Hct MCV MCH MCHC RDW Plt Count Lymph % (Auto) [place] % (Auto) Eos % (Auto) Lymph # Riley # Eos # Seg Neutrophils % Seg Neuts % (Manual) Lymphocytes % (Manual) Eosinophils % (Manual) Seg Neutrophils # Lymphocytes # (Manual) Eosinophils # (Manual) PT INR D-Dimer POC ABG pH POC ABG pCO2 POC ABG pO2 ABG pO2 ABG HCO3 ABG Base Excess ABG Hemoglobin Oxyhemoglobin Sodium Potassium Chloride Carbon Dioxide BUN Creatinine Glucose POC Glucose 150 H 140 H 130 H Calcium Phosphorus Magnesium ALT Alkaline Phosphatase Total Creatine Kinase CK-MB (CK-2) Rel Index Troponin T Albumin LDL Cholesterol Direct PTH Intact Salicylates Acetaminophen Crossmatch 05/02/19 05/02/19 05/03/19 11:55 18:10 00:15 WBC RBC Hgb Hct MCV MCH MCHC RDW Plt Count Lymph % (Auto) [place] % (Auto) Eos % (Auto) Lymph # [place] # Eos # Seg Neutrophils % Seg Neuts % (Manual) Lymphocytes % (Manual) Eosinophils % (Manual) Seg Neutrophils # Lymphocytes # (Manual) Eosinophils # (Manual) PT INR D-Dimer POC ABG pH POC ABG pCO2 POC ABG pO2 ABG pO2 ABG HCO3 ABG Base Excess ABG Hemoglobin Oxyhemoglobin Sodium Potassium Chloride Carbon Dioxide BUN Creatinine Glucose POC Glucose 146 H 141 H 145 H Calcium Phosphorus Magnesium ALT Alkaline Phosphatase Total Creatine Kinase CK-MB (CK-2) Rel Index Troponin T Albumin LDL Cholesterol Direct PTH Intact Salicylates Acetaminophen Crossmatch 05/03/19 05/03/19 05/03/19 05:49 05:49 06:01 WBC RBC 2.84 L Hgb 7.2 L Hct 22.9 L MCV 81 L MCH 26 L MCHC RDW 20.6 H Plt Count 456 H Lymph % (Auto) 11.8 L Riley % (Auto) Eos % (Auto) 10.6 H Lymph # 1.1 L Riley # Eos # 1.0 H Seg Neutrophils % 70.4 H Seg Neuts % (Manual) Lymphocytes % (Manual) Eosinophils % (Manual) Seg Neutrophils # Lymphocytes # (Manual) Eosinophils # (Manual) PT INR D-Dimer POC ABG pH POC ABG pCO2 POC ABG pO2 ABG pO2 ABG HCO3 ABG Base Excess ABG Hemoglobin Oxyhemoglobin Sodium Potassium Chloride 94.8 L Carbon Dioxide BUN 66 H Creatinine 3.6 H Glucose 129 H POC Glucose 135 H Calcium Phosphorus Magnesium ALT Alkaline Phosphatase Total Creatine Kinase CK-MB (CK-2) Rel Index Troponin T Albumin LDL Cholesterol Direct PTH Intact Salicylates Acetaminophen Crossmatch 05/03/19 05/03/19 05/04/19 11:04 18:40 00:06 WBC RBC Hgb Hct MCV MCH MCHC RDW Plt Count Lymph % (Auto) Riley % (Auto) Eos % (Auto) Lymph # Riley # Eos # Seg Neutrophils % Seg Neuts % (Manual) Lymphocytes % (Manual) Eosinophils % (Manual) Seg Neutrophils # Lymphocytes # (Manual) Eosinophils # (Manual) PT INR D-Dimer POC ABG pH POC ABG pCO2 POC ABG pO2 ABG pO2 ABG HCO3 ABG Base Excess ABG Hemoglobin Oxyhemoglobin Sodium Potassium Chloride Carbon Dioxide BUN Creatinine Glucose POC Glucose 191 H 167 H 137 H Calcium Phosphorus Magnesium ALT Alkaline Phosphatase Total Creatine Kinase CK-MB (CK-2) Rel Index Troponin T Albumin LDL Cholesterol Direct PTH Intact Salicylates Acetaminophen Crossmatch 05/04/19 05/04/19 05/04/19 06:44 07:30 07:30 WBC 15.8 H RBC 2.74 L Hgb 6.7 L Hct 22.2 L MCV 81 L MCH 24 L MCHC 30 L RDW 20.4 H Plt Count 450 H Lymph % (Auto) 5.1 L Riley % (Auto) Eos % (Auto) Lymph # 0.8 L Riley # Eos # 0.6 H Seg Neutrophils % 86.3 H Seg Neuts % (Manual) Lymphocytes % (Manual) Eosinophils % (Manual) Seg Neutrophils # 13.6 H Lymphocytes # (Manual) Eosinophils # (Manual) PT INR D-Dimer POC ABG pH POC ABG pCO2 POC ABG pO2 ABG pO2 ABG HCO3 ABG Base Excess ABG Hemoglobin Oxyhemoglobin Sodium Potassium Chloride 95.2 L Carbon Dioxide BUN 92 H Creatinine 4.8 H Glucose 139 H POC Glucose 153 H Calcium Phosphorus Magnesium ALT Alkaline Phosphatase Total Creatine Kinase CK-MB (CK-2) Rel Index Troponin T Albumin LDL Cholesterol Direct PTH Intact Salicylates Acetaminophen Crossmatch 05/04/19 05/04/19 05/05/19 12:55 16:31 01:02 WBC RBC Hgb Hct MCV MCH MCHC RDW Plt Count Lymph % (Auto) Riley % (Auto) Eos % (Auto) Lymph # Riley # Eos # Seg Neutrophils % Seg Neuts % (Manual) Lymphocytes % (Manual) Eosinophils % (Manual) Seg Neutrophils # Lymphocytes # (Manual) Eosinophils # (Manual) PT INR D-Dimer POC ABG pH POC ABG pCO2 POC ABG pO2 ABG pO2 ABG HCO3 ABG Base Excess ABG Hemoglobin Oxyhemoglobin Sodium Potassium Chloride Carbon Dioxide BUN Creatinine Glucose POC Glucose 169 H 171 H Calcium Phosphorus Magnesium ALT Alkaline Phosphatase Total Creatine Kinase CK-MB (CK-2) Rel Index Troponin T Albumin LDL Cholesterol Direct PTH Intact Salicylates Acetaminophen Crossmatch See Detail 05/05/19 05/05/19 05/05/19 05:26 05:36 11:48 WBC 12.6 H RBC 2.73 L Hgb 6.9 L Hct 22.3 L MCV 82 L MCH 25 L MCHC 31 L RDW 21.0 H Plt Count Lymph % (Auto) 8.9 L Riley % (Auto) Eos % (Auto) Lymph # 1.1 L Riley # 0.9 H Eos # Seg Neutrophils % 80.7 H Seg Neuts % (Manual) Lymphocytes % (Manual) Eosinophils % (Manual) Seg Neutrophils # 10.2 H Lymphocytes # (Manual) Eosinophils # (Manual) PT INR D-Dimer POC ABG pH POC ABG pCO2 POC ABG pO2 ABG pO2 ABG HCO3 ABG Base Excess ABG Hemoglobin Oxyhemoglobin Sodium Potassium Chloride Carbon Dioxide BUN Creatinine Glucose POC Glucose 153 H 173 H Calcium Phosphorus Magnesium ALT Alkaline Phosphatase Total Creatine Kinase CK-MB (CK-2) Rel Index Troponin T Albumin LDL Cholesterol Direct PTH Intact Salicylates Acetaminophen Crossmatch 05/05/19 16:42 WBC RBC Hgb Hct MCV MCH MCHC RDW Plt Count Lymph % (Auto) Riley % (Auto) Eos % (Auto) Lymph # Riley # Eos # Seg Neutrophils % Seg Neuts % (Manual) Lymphocytes % (Manual) Eosinophils % (Manual) Seg Neutrophils # Lymphocytes # (Manual) Eosinophils # (Manual) PT INR D-Dimer POC ABG pH POC ABG pCO2 POC ABG pO2 ABG pO2 ABG HCO3 ABG Base Excess ABG Hemoglobin Oxyhemoglobin Sodium Potassium Chloride Carbon Dioxide BUN Creatinine Glucose POC Glucose 126 H Calcium Phosphorus Magnesium ALT Alkaline Phosphatase Total Creatine Kinase CK-MB (CK-2) Rel Index Troponin T Albumin LDL Cholesterol Direct PTH Intact Salicylates Acetaminophen Crossmatch Chest x-ray: report reviewed, image reviewed
[2019-05-06] MEDS: INSULIN REGULAR, HUMAN 100 UNITS/1 ML SUB-Q SCH ×4 (00:30→18:15)
[2019-05-06] MEDS: IPRATROPIUM/ALBUTEROL SULFATE 3 ML AMPUL.NEB IH SCH ×3 (08:31→20:17)
[2019-05-06 08:54] LABS: Hematocrit 21.7 % (35.5-45.6); Hemoglobin 6.7 gm/dl (11.8-15.2); Mean Corpuscular HGB Conc 31 % (32-34); Mean Corpuscular Volume 80 fl (84-94); Mean Platelet Volume 7.5 fl (6-12); Platelet Count 418 K/mm3 (140-440); Red Blood Count 2.72 M/mm3 (3.65-5.03); Red Cell Distribution Width 20.9 % (13.2-15.2)
[2019-05-06] MEDS ORDERED: SODIUM CHLORIDE 0.9% 500 ML 500 ML IV NR (09:00)
--- NOTE | 2019-05-06 11:08 | Progress Note ---
Subjective Principal diagnosis: Respiratory failure, acute on chronic systolic HF, ESRD Interval history: Patient was seen today for follow-up of multiple renal related issues on hemodialysis Saturday He is arousable but confused, this is not new Past medical history: Reviewed Family history: Reviewed Social history: Reviewed Allergies: Reviewed Physical examination: Vitals: Reviewed HEENT: No pallor or icterus oral mucosa moist Neck: Supple no JVD no thyromegaly Chest: Bilateral clear to auscultation anteriorly Heart: Regular rate and rhythm S1-S2 heard no S3-S4 Abdomen: Soft nontender no voluntary guarding rigidity rebound Extremity: Dry skin less than 1+ peripheral edema Labs and x-rays: Reviewed from today Assessment and plan End-stage renal disease currently on maintenance hemodialysis Saturday and Saturday Anemia and end-stage renal disease hemoglobin currently around 6.9 significantly elevated BUN? Upper GI bleed recommendations have been made for anemia management Mortality risk: Very high Continue with supportive care Leukocytosis: Blood cultures negative as of Systolic heart failure, dilated cardiomyopathy, pulmonary hypertension, atelectasis, pneumonia Secondary hyperparathyroidism: Check phosphorus and PTH level periodically Overall prognosis very poor We'll continue to follow and make recommendation for renal standpoint Objective - Vital Signs Vital signs: Vital Signs - 12hr 05/05/19 05/06/19 05/06/19 23:27 00:01 04:17 Temperature 98.1 F 97.8 F Pulse Rate 106 H 88 Pulse Rate [ Anterior Bilateral Throughout] Respiratory 18 18 Rate Respiratory Rate [Anterior Bilateral Throughout] Blood Pressure 135/64 122/58 O2 Sat by Pulse 98 84 Oximetry O2 Sat by Pulse 98 Oximetry [ Assessment] 05/06/19 05/06/19 05/06/19 08:38 08:42 09:16 Temperature Pulse Rate Pulse Rate [ 89 Anterior Bilateral Throughout] Respiratory Rate Respiratory 18 Rate [Anterior Bilateral Throughout] Blood Pressure O2 Sat by Pulse 97 Oximetry O2 Sat by Pulse 99 Oximetry [ Assessment] 05/06/19 10:31 Temperature Pulse Rate Pulse Rate [ Anterior Bilateral Throughout] Respiratory Rate Respiratory Rate [Anterior Bilateral Throughout] Blood Pressure O2 Sat by Pulse Oximetry O2 Sat by Pulse 100 Oximetry [ Assessment] - Lab 05/06/19 08:15 05/04/19 07:30 Most recent lab results ABG pH 7.424 pH Units (7.350-7.450) 03/19/19 04:23 ABG pCO2 48.0 mm Hg 03/19/19 04:23 ABG pO2 78.3 mm Hg (80.0-90.0) L 03/19/19 04:23 ABG HCO3 30.7 mmol/L (20.0-26.0) H 03/19/19 04:23 ABG O2 Saturation 97.0 % (95.0-99.0) 03/19/19 04:23 Calcium 10.2 mg/dL (8.4-10.2) 05/04/19 07:30 Phosphorus 4.30 mg/dL (2.5-4.5) D 03/31/19 10:26 Magnesium 2.70 mg/dL (1.7-2.3) H 03/30/19 10:13 Medications & Allergies - Medications Allergies/Adverse Reactions: Allergies haloperidol [From Haldol] Adverse Reaction (Verified 03/13/18 12:10) Unknown haloperidol lactate [From Haldol] Adverse Reaction (Verified 03/13/18 12:10) Unknown Home Medications: Home Medications Medication Instructions Recorded Confirmed Last Taken Type risperiDONE [RisperDAL] 1 mg PO QAM 03/13/18 02/21/19 Unknown History Sertraline [Zoloft] 100 mg PO QDAY 08/26/18 02/21/19 Unknown History Polyethylene Glycol 3350 [Miralax 17 gm PO QDAY #30 packet 11/05/18 02/21/19 Unknown Rx 3350] Aspirin EC [Halfprin EC] 81 mg PO DAILY #30 11/19/18 02/21/19 Unknown Rx Docusate Sodium [Colace CAP] 100 mg PO BID #60 11/19/18 02/21/19 Unknown Rx Folic Acid [Folvite] 1 mg PO DAILY #30 tab 11/19/18 02/21/19 Unknown Rx Famotidine [Pepcid] 20 mg PO DAILY tablet 12/08/18 02/21/19 Unknown Rx Gabapentin [Neurontin] 100 mg PO QHS capsule 12/08/18 02/21/19 Unknown Rx Metoprolol [Lopressor TAB] 50 mg PO BID 30 Days tablet 12/08/18 02/21/19 Unknown Rx Sevelamer Carbonate [Renvela] 800 mg PO TIDWM tablet 12/08/18 02/21/19 Unknown Rx hydrALAZINE [Apresoline TAB] 100 mg PO Q8HR #120 tablet 12/08/18 02/21/19 Unknown Rx Acetaminophen [Acetaminophen TAB] 650 mg PO Q12H PRN 12/15/18 02/21/19 Unknown History Glucagon,Human Recombinant 1 mg IJ Q15MIN PRN 12/15/18 02/21/19 Unknown History [Glucagon Emergency Kit] Insulin Aspart [NovoLOG 100 See Protocol SQ QWEEK 12/15/18 02/21/19 Unknown History UNITS/ML VIAL] Active Medications: Generic Name Dose Route Start Last Admin Trade Name Freq PRN Reason Stop Dose Admin Albuterol/Ipratropium 1 ampul 02/24/19 20:00 05/06/19 08:31 Duoneb *Not For Prn Use* IH 1 ampul TIDRT SANCHEZ Administration Lipase/Protease/Amylase 1 each 04/10/19 15:16 Pancreaze 10,500 Unit FEEDTUBE PRN PRN For Clogged Feeding Tube Epoetin Solitario 20,000 unit 03/24/19 11:17 05/04/19 13:15 Procrit IV 20,000 unit UMA PRN Administration hemodialysis Famotidine 20 mg 02/23/19 10:00 05/05/19 09:42 Pepcid PO 20 mg DAILY SANCHEZ Administration Sodium Chloride 500 mls @ 0 mls/hr 05/06/19 09:00 Nacl 0.9% 500 Ml IV 05/06/19 16:00 ONCE NR As Directed Insulin Human Regular 0 units 02/26/19 12:00 05/06/19 06:45 Humulin R SUB-Q 1 units Q6HR SANCHEZ Administration Protocol Metoprolol Tartrate 2.5 mg 02/28/19 12:06 03/15/19 05:15 Lopressor IV 2.5 mg Q4HR PRN Administration Tachycardia Risperidone 1 mg 02/25/19 13:00 05/05/19 09:42 Risperdal PO 1 mg DAILY SANCHEZ Administration Sertraline HCl 100 mg 02/25/19 13:00 05/05/19 09:42 Zoloft PO 100 mg DAILY SANCHEZ Administration Simple Syrup 15 ml 04/10/19 15:16 Simple Syrup FEEDTUBE PRN PRN Hypoglycemia Simple Syrup 30 ml 04/10/19 15:16 Simple Syrup FEEDTUBE PRN PRN Hypoglycemia Sodium Bicarbonate 325 mg 04/10/19 15:16 Sodium Bicarbonate FEEDTUBE PRN PRN For Clogged Feeding Tube Sodium Hypochlorite 1 applic 04/01/19 13:00 05/05/19 22:04 Dakin's Half Strength TP 1 applicatio BID SANCHEZ Administration
--- NOTE | 2019-05-06 13:24 | Progress Note ---
Assessment and Plan Imp: 1. Acute encephalopathy, probably metabolic or toxic, resolved 2. A/C systolic CHF 3. Dilated CMP 4. Pulm HTN 5. ESRD 6. RUL atelectasis, probably mucous plugging -> resolved 7. KEON pneumonia, resolved Rec: 1. Chest PT, Duonebs 2. Tolerating Tpiece; monitor; medically I believe his trach should be permanent for airway management but he may require decannulation for placement in a SNF; he is tolerating PMV perfectly at this point; has a 4 cuffless now and will let him acclimate to this for a day or two prior to starting capping trials; it remains to be seen if he can clear his airway w/ trach capped; cuffed trach is noted to be at the bedside for emergency purposes 3. Avoid sedatives 4. DVT and GI PPx 5. TFs per PEG 6. HD per renal 7. Agree w/ DNR as per family wishes although hospice is the most appropriate course for him Await placement No family present Subjective Date of service: 05/06/19 Principal diagnosis: Respiratory failure, acute on chronic systolic HF, ESRD Interval history: No events. Mentation near usual poor baseline. Does respond to basic questions but cannot give hx. On 28% per Tpiece. On HD. Tolerating PMV well per ST notes. Has 4 cuffless trach now. Currently on HD and received 2 units of PRBCs. Active Medications Albuterol/Ipratropium (Duoneb *Not For Prn Use*) 1 ampul IH TIDRT [facility] Last Admin: 05/06/19 08:31 Dose: 1 ampul Documented by: Lipase/Protease/Amylase ([place] 10,500 Unit) 1 each FEEDTUBE PRN PRN PRN Reason: For Clogged Feeding Tube Epoetin Solitario (Procrit) 20,000 unit IV UMA PRN PRN Reason: hemodialysis Last Admin: 05/04/19 13:15 Dose: 20,000 unit Documented by: Famotidine (Pepcid) 20 mg PO DAILY [facility] Last Admin: 05/05/19 09:42 Dose: 20 mg Documented by: Sodium Chloride (Nacl 0.9% 500 Ml) 500 mls @ 0 mls/hr IV ONCE NR Stop: 05/06/19 16:00 Insulin Human Regular (Humulin R) 0 units SUB-Q Q6HR [facility]; Protocol Last Admin: 05/06/19 06:45 Dose: 1 units Documented by: Metoprolol Tartrate (Lopressor) 2.5 mg IV Q4HR PRN PRN Reason: Tachycardia Last Admin: 03/15/19 05:15 Dose: 2.5 mg Documented by: Risperidone (Risperdal) 1 mg PO DAILY [facility] Last Admin: 05/05/19 09:42 Dose: 1 mg Documented by: Sertraline HCl (Zoloft) 100 mg PO DAILY [facility] Last Admin: 05/05/19 09:42 Dose: 100 mg Documented by: Simple Syrup (Simple Syrup) 15 ml FEEDTUBE PRN PRN PRN Reason: Hypoglycemia Simple Syrup (Simple Syrup) 30 ml FEEDTUBE PRN PRN PRN Reason: Hypoglycemia Sodium Bicarbonate (Sodium Bicarbonate) 325 mg FEEDTUBE PRN PRN PRN Reason: For Clogged Feeding Tube Sodium Hypochlorite (Dakin's Half Strength) 1 applic TP BID [facility] Last Admin: 05/05/19 22:04 Dose: 1 applicatio Documented by: Objective Vital Signs - 12hr 05/06/19 05/06/19 05/06/19 04:17 08:38 08:42 Temperature 97.8 F Pulse Rate 88 Pulse Rate [ 89 Anterior Bilateral Throughout] Respiratory 18 Rate Respiratory 18 Rate [Anterior Bilateral Throughout] Blood Pressure 122/58 O2 Sat by Pulse 84 97 Oximetry O2 Sat by Pulse Oximetry [ Assessment] 05/06/19 05/06/19 05/06/19 09:16 10:31 10:50 Temperature 97.8 F Pulse Rate 64 Pulse Rate [ Anterior Bilateral Throughout] Respiratory 18 Rate Respiratory Rate [Anterior Bilateral Throughout] Blood Pressure 108/59 O2 Sat by Pulse Oximetry O2 Sat by Pulse 99 100 Oximetry [ Assessment] 05/06/19 05/06/19 05/06/19 11:05 11:15 11:30 Temperature Pulse Rate 95 H 95 H 98 H Pulse Rate [ Anterior Bilateral Throughout] Respiratory Rate Respiratory Rate [Anterior Bilateral Throughout] Blood Pressure 110/56 107/57 104/58 O2 Sat by Pulse Oximetry O2 Sat by Pulse Oximetry [ Assessment] 05/06/19 05/06/19 05/06/19 11:45 12:00 12:15 Temperature Pulse Rate 96 H 82 93 H Pulse Rate [ Anterior Bilateral Throughout] Respiratory Rate Respiratory Rate [Anterior Bilateral Throughout] Blood Pressure 96/55 114/57 114/55 O2 Sat by Pulse Oximetry O2 Sat by Pulse Oximetry [ Assessment] 05/06/19 12:30 Temperature Pulse Rate 93 H Pulse Rate [ Anterior Bilateral Throughout] Respiratory Rate Respiratory Rate [Anterior Bilateral Throughout] Blood Pressure 117/33 O2 Sat by Pulse Oximetry O2 Sat by Pulse Oximetry [ Assessment] Constitutional: no acute distress, alert Eyes: non-icteric ENT: oropharynx moist Neck: supple Effort: normal Ascultation: Bilateral: other (coarse BS bilaterally) Percussion: Bilateral: not dull Cardiovascular: regular rate and rhythm (no mrg) Gastrointestinal: normoactive bowel sounds, soft, non-tender, non-distended, other (ostomy in place, brown stool) Extremities: no cyanosis, no edema, pink and warm Neurologic: other (mild weakness LUE, o/w nonfocal) Psychiatric: other (unable to assess) CBC and BMP: 05/06/19 08:15 05/04/19 07:30 ABG, PT/INR, D-dimer: ABG POC ABG pH 7.510 (7.35-7.45) H 03/18/19 06:38 ABG pH 7.424 pH Units (7.350-7.450) 03/19/19 04:23 POC ABG pCO2 38.9 (35-45) 03/18/19 06:38 ABG pCO2 48.0 mm Hg 03/19/19 04:23 POC ABG pO2 164 (80-105) H 03/18/19 06:38 ABG pO2 78.3 mm Hg (80.0-90.0) L 03/19/19 04:23 POC ABG HCO3 31.0 (22-26 mml/L) 03/18/19 06:38 POC ABG Total CO2 32 (23-27mmol/L) 03/18/19 06:38 POC ABG O2 Sat 100 03/18/19 06:38 ABG O2 Saturation 97.0 % (95.0-99.0) 03/19/19 04:23 PT/INR, D-dimer PT 16.3 Sec. (12.2-14.9) H 03/01/19 09:39 INR 1.35 (0.87-1.13) H 03/01/19 09:39 D-Dimer 2987.82 ng/mlDDU (0-234) H 02/22/19 05:54 Abnormal lab findings: Abnormal Labs 02/21/19 02/21/19 02/21/19 18:30 18:30 18:30 WBC RBC 3.26 L Hgb 8.8 L Hct 29.0 L MCV MCH 27 L MCHC 30 L RDW 19.1 H Plt Count Lymph % (Auto) 6.1 L [place] % (Auto) Eos % (Auto) Lymph # 0.4 L [place] # Eos # Seg Neutrophils % 86.2 H Seg Neuts % (Manual) Lymphocytes % (Manual) Eosinophils % (Manual) Seg Neutrophils # Lymphocytes # (Manual) Eosinophils # (Manual) PT INR D-Dimer POC ABG pH POC ABG pCO2 POC ABG pO2 ABG pO2 ABG HCO3 ABG Base Excess ABG Hemoglobin Oxyhemoglobin Sodium 133 L Potassium 3.3 L Chloride 93.1 L Carbon Dioxide 33 H BUN Creatinine Glucose 161 H POC Glucose Calcium Phosphorus Magnesium ALT Alkaline Phosphatase 136 H Total Creatine Kinase 37 L CK-MB (CK-2) Rel Index Troponin T 0.192 H* Albumin 2.4 L LDL Cholesterol Direct 36 L PTH Intact Salicylates Acetaminophen Crossmatch 02/21/19 02/21/19 02/21/19 18:42 20:04 20:04 WBC RBC Hgb Hct MCV MCH MCHC RDW Plt Count Lymph % (Auto) [place] % (Auto) Eos % (Auto) Lymph # [place] # Eos # Seg Neutrophils % Seg Neuts % (Manual) Lymphocytes % (Manual) Eosinophils % (Manual) Seg Neutrophils # Lymphocytes # (Manual) Eosinophils # (Manual) PT INR D-Dimer POC ABG pH POC ABG pCO2 56.7 H POC ABG pO2 291 H ABG pO2 ABG HCO3 ABG Base Excess ABG Hemoglobin Oxyhemoglobin Sodium Potassium Chloride Carbon Dioxide BUN Creatinine Glucose POC Glucose Calcium Phosphorus Magnesium ALT Alkaline Phosphatase Total Creatine Kinase CK-MB (CK-2) Rel Index Troponin T Albumin LDL Cholesterol Direct PTH Intact Salicylates < 0.3 L Acetaminophen < 5.0 L Crossmatch 02/21/19 02/22/19 02/22/19 22:35 03:42 03:42 WBC RBC 3.20 L Hgb 8.8 L Hct 27.6 L MCV MCH MCHC RDW 18.9 H Plt Count Lymph % (Auto) 7.4 L [place] % (Auto) Eos % (Auto) Lymph # 0.7 L [place] # Eos # Seg Neutrophils % 84.7 H Seg Neuts % (Manual) Lymphocytes % (Manual) Eosinophils % (Manual) Seg Neutrophils # Lymphocytes # (Manual) Eosinophils # (Manual) PT INR D-Dimer POC ABG pH POC ABG pCO2 POC ABG pO2 ABG pO2 ABG HCO3 ABG Base Excess ABG Hemoglobin Oxyhemoglobin Sodium 134 L Potassium 2.6 L* D Chloride Carbon Dioxide BUN Creatinine Glucose POC Glucose Calcium Phosphorus Magnesium ALT Alkaline Phosphatase Total Creatine Kinase CK-MB (CK-2) Rel Index 5.2 H Troponin T 0.202 H* Albumin LDL Cholesterol Direct PTH Intact Salicylates Acetaminophen Crossmatch 02/22/19 02/22/19 02/22/19 03:42 05:54 09:04 WBC RBC Hgb Hct MCV MCH MCHC RDW Plt Count Lymph % (Auto) [place] % (Auto) Eos % (Auto) Lymph # [place] # Eos # Seg Neutrophils % Seg Neuts % (Manual) Lymphocytes % (Manual) Eosinophils % (Manual) Seg Neutrophils # Lymphocytes # (Manual) Eosinophils # (Manual) PT INR D-Dimer 2987.82 H POC ABG pH 7.451 H POC ABG pCO2 POC ABG pO2 ABG pO2 ABG HCO3 ABG Base Excess ABG Hemoglobin Oxyhemoglobin Sodium Potassium Chloride Carbon Dioxide BUN Creatinine Glucose POC Glucose Calcium Phosphorus Magnesium ALT Alkaline Phosphatase Total Creatine Kinase CK-MB (CK-2) Rel Index 5.7 H Troponin T 0.193 H* Albumin LDL Cholesterol Direct PTH Intact Salicylates Acetaminophen Crossmatch 02/22/19 02/22/19 02/23/19 10:36 23:56 00:52 WBC RBC Hgb Hct MCV MCH MCHC RDW Plt Count Lymph % (Auto) [place] % (Auto) Eos % (Auto) Lymph # [place] # Eos # Seg Neutrophils % Seg Neuts % (Manual) Lymphocytes % (Manual) Eosinophils % (Manual) Seg Neutrophils # Lymphocytes # (Manual) Eosinophils # (Manual) PT INR D-Dimer POC ABG pH POC ABG pCO2 POC ABG pO2 ABG pO2 ABG HCO3 ABG Base Excess ABG Hemoglobin Oxyhemoglobin Sodium Potassium 3.1 L Chloride Carbon Dioxide BUN Creatinine Glucose POC Glucose 58 L 111 H Calcium Phosphorus Magnesium ALT Alkaline Phosphatase Total Creatine Kinase CK-MB (CK-2) Rel Index Troponin T Albumin LDL Cholesterol Direct PTH Intact Salicylates Acetaminophen Crossmatch 02/23/19 02/23/19 02/23/19 05:00 06:35 14:26 WBC RBC Hgb Hct MCV MCH MCHC RDW Plt Count Lymph % (Auto) [place] % (Auto) Eos % (Auto) Lymph # [place] # Eos # Seg Neutrophils % Seg Neuts % (Manual) Lymphocytes % (Manual) Eosinophils % (Manual) Seg Neutrophils # Lymphocytes # (Manual) Eosinophils # (Manual) PT INR D-Dimer POC ABG pH POC ABG pCO2 POC ABG pO2 ABG pO2 ABG HCO3 ABG Base Excess ABG Hemoglobin Oxyhemoglobin Sodium 135 L Potassium 3.1 L Chloride Carbon Dioxide BUN 21 H Creatinine 2.0 H Glucose 57 L POC Glucose 64 L 62 L Calcium Phosphorus Magnesium ALT Alkaline Phosphatase Total Creatine Kinase CK-MB (CK-2) Rel Index Troponin T Albumin LDL Cholesterol Direct PTH Intact Salicylates Acetaminophen Crossmatch 02/24/19 02/24/19 02/24/19 02:11 04:12 04:55 WBC RBC 2.84 L Hgb 7.8 L Hct 24.5 L MCV MCH MCHC RDW 19.5 H Plt Count Lymph % (Auto) [place] % (Auto) Eos % (Auto) Lymph # [place] # Eos # Seg Neutrophils % Seg Neuts % (Manual) Lymphocytes % (Manual) Eosinophils % (Manual) Seg Neutrophils # Lymphocytes # (Manual) Eosinophils # (Manual) PT INR D-Dimer POC ABG pH 7.511 H POC ABG pCO2 33.9 L POC ABG pO2 62 L ABG pO2 ABG HCO3 ABG Base Excess ABG Hemoglobin Oxyhemoglobin Sodium Potassium Chloride Carbon Dioxide BUN Creatinine Glucose POC Glucose 69 L Calcium Phosphorus Magnesium ALT Alkaline Phosphatase Total Creatine Kinase CK-MB (CK-2) Rel Index Troponin T Albumin LDL Cholesterol Direct PTH Intact Salicylates Acetaminophen Crossmatch 02/24/19 02/24/19 02/25/19 04:55 05:41 04:45 WBC RBC Hgb Hct MCV MCH MCHC RDW Plt Count Lymph % (Auto) [place] % (Auto) Eos % (Auto) Lymph # [place] # Eos # Seg Neutrophils % Seg Neuts % (Manual) Lymphocytes % (Manual) Eosinophils % (Manual) Seg Neutrophils # Lymphocytes # (Manual) Eosinophils # (Manual) PT INR D-Dimer POC ABG pH 7.466 H POC ABG pCO2 POC ABG pO2 75 L ABG pO2 ABG HCO3 ABG Base Excess ABG Hemoglobin Oxyhemoglobin Sodium Potassium Chloride Carbon Dioxide BUN Creatinine 1.8 H Glucose 73 L POC Glucose 127 H Calcium Phosphorus Magnesium ALT Alkaline Phosphatase Total Creatine Kinase CK-MB (CK-2) Rel Index Troponin T Albumin LDL Cholesterol Direct PTH Intact Salicylates Acetaminophen Crossmatch 02/25/19 02/25/19 02/26/19 16:34 21:33 03:45 WBC RBC 2.96 L Hgb 8.0 L Hct 25.8 L MCV MCH 27 L MCHC 31 L RDW 20.0 H Plt Count Lymph % (Auto) [place] % (Auto) Eos % (Auto) Lymph # [place] # Eos # Seg Neutrophils % Seg Neuts % (Manual) Lymphocytes % (Manual) Eosinophils % (Manual) Seg Neutrophils # Lymphocytes # (Manual) Eosinophils # (Manual) PT INR D-Dimer POC ABG pH POC ABG pCO2 POC ABG pO2 ABG pO2 ABG HCO3 ABG Base Excess ABG Hemoglobin Oxyhemoglobin Sodium Potassium Chloride Carbon Dioxide BUN Creatinine Glucose POC Glucose 141 H 106 H Calcium Phosphorus Magnesium ALT Alkaline Phosphatase Total Creatine Kinase CK-MB (CK-2) Rel Index Troponin T Albumin LDL Cholesterol Direct PTH Intact Salicylates Acetaminophen Crossmatch 02/26/19 02/26/19 02/26/19 03:45 04:13 07:53 WBC RBC Hgb Hct MCV MCH MCHC RDW Plt Count Lymph % (Auto) [place] % (Auto) Eos % (Auto) Lymph # [place] # Eos # Seg Neutrophils % Seg Neuts % (Manual) Lymphocytes % (Manual) Eosinophils % (Manual) Seg Neutrophils # Lymphocytes # (Manual) Eosinophils # (Manual) PT INR D-Dimer POC ABG pH 7.470 H POC ABG pCO2 POC ABG pO2 ABG pO2 ABG HCO3 ABG Base Excess ABG Hemoglobin Oxyhemoglobin Sodium Potassium Chloride Carbon Dioxide BUN Creatinine 1.8 H Glucose POC Glucose 110 H Calcium Phosphorus Magnesium ALT Alkaline Phosphatase Total Creatine Kinase CK-MB (CK-2) Rel Index Troponin T Albumin LDL Cholesterol Direct PTH Intact Salicylates Acetaminophen Crossmatch 02/26/19 02/26/19 02/27/19 11:56 17:43 00:12 WBC RBC Hgb Hct MCV MCH MCHC RDW Plt Count Lymph % (Auto) [place] % (Auto) Eos % (Auto) Lymph # [place] # Eos # Seg Neutrophils % Seg Neuts % (Manual) Lymphocytes % (Manual) Eosinophils % (Manual) Seg Neutrophils # Lymphocytes # (Manual) Eosinophils # (Manual) PT INR D-Dimer POC ABG pH POC ABG pCO2 POC ABG pO2 ABG pO2 ABG HCO3 ABG Base Excess ABG Hemoglobin Oxyhemoglobin Sodium Potassium Chloride Carbon Dioxide BUN Creatinine Glucose POC Glucose 112 H 127 H 127 H Calcium Phosphorus Magnesium ALT Alkaline Phosphatase Total Creatine Kinase CK-MB (CK-2) Rel Index Troponin T Albumin LDL Cholesterol Direct PTH Intact Salicylates Acetaminophen Crossmatch 02/27/19 02/27/19 02/27/19 04:35 13:15 18:02 WBC RBC Hgb Hct MCV MCH MCHC RDW Plt Count Lymph % (Auto) [place] % (Auto) Eos % (Auto) Lymph # [place] # Eos # Seg Neutrophils % Seg Neuts % (Manual) Lymphocytes % (Manual) Eosinophils % (Manual) Seg Neutrophils # Lymphocytes # (Manual) Eosinophils # (Manual) PT INR D-Dimer POC ABG pH 7.483 H POC ABG pCO2 POC ABG pO2 61 L ABG pO2 ABG HCO3 ABG Base Excess ABG Hemoglobin Oxyhemoglobin Sodium Potassium Chloride Carbon Dioxide BUN Creatinine Glucose POC Glucose 143 H 106 H Calcium Phosphorus Magnesium ALT Alkaline Phosphatase Total Creatine Kinase CK-MB (CK-2) Rel Index Troponin T Albumin LDL Cholesterol Direct PTH Intact Salicylates Acetaminophen Crossmatch 02/28/19 02/28/19 02/28/19 05:50 11:59 17:52 WBC RBC Hgb Hct MCV MCH MCHC RDW Plt Count Lymph % (Auto) [place] % (Auto) Eos % (Auto) Lymph # [place] # Eos # Seg Neutrophils % Seg Neuts % (Manual) Lymphocytes % (Manual) Eosinophils % (Manual) Seg Neutrophils # Lymphocytes # (Manual) Eosinophils # (Manual) PT INR D-Dimer POC ABG pH POC ABG pCO2 POC ABG pO2 ABG pO2 ABG HCO3 ABG Base Excess ABG Hemoglobin Oxyhemoglobin Sodium Potassium Chloride Carbon Dioxide BUN Creatinine Glucose POC Glucose 134 H 128 H 142 H Calcium Phosphorus Magnesium ALT Alkaline Phosphatase Total Creatine Kinase CK-MB (CK-2) Rel Index Troponin T Albumin LDL Cholesterol Direct PTH Intact Salicylates Acetaminophen Crossmatch 02/28/19 03/01/19 03/01/19 23:13 05:40 09:39 WBC RBC Hgb Hct MCV MCH MCHC RDW Plt Count Lymph % (Auto) [place] % (Auto) Eos % (Auto) Lymph # [place] # Eos # Seg Neutrophils % Seg Neuts % (Manual) Lymphocytes % (Manual) Eosinophils % (Manual) Seg Neutrophils # Lymphocytes # (Manual) Eosinophils # (Manual) PT 16.3 H INR 1.35 H D-Dimer POC ABG pH POC ABG pCO2 POC ABG pO2 ABG pO2 ABG HCO3 ABG Base Excess ABG Hemoglobin Oxyhemoglobin Sodium Potassium Chloride Carbon Dioxide BUN Creatinine Glucose POC Glucose 112 H 111 H Calcium Phosphorus Magnesium ALT Alkaline Phosphatase Total Creatine Kinase CK-MB (CK-2) Rel Index Troponin T Albumin LDL Cholesterol Direct PTH Intact Salicylates Acetaminophen Crossmatch 03/01/19 03/01/19 03/01/19 11:56 13:54 17:59 WBC RBC Hgb Hct MCV MCH MCHC RDW Plt Count Lymph % (Auto) [place] % (Auto) Eos % (Auto) Lymph # [place] # Eos # Seg Neutrophils % Seg Neuts % (Manual) Lymphocytes % (Manual) Eosinophils % (Manual) Seg Neutrophils # Lymphocytes # (Manual) Eosinophils # (Manual) PT INR D-Dimer POC ABG pH POC ABG pCO2 POC ABG pO2 ABG pO2 ABG HCO3 ABG Base Excess ABG Hemoglobin Oxyhemoglobin Sodium Potassium Chloride Carbon Dioxide BUN 33 H Creatinine 2.8 H D Glucose 176 H POC Glucose 199 H 147 H Calcium Phosphorus Magnesium ALT Alkaline Phosphatase Total Creatine Kinase CK-MB (CK-2) Rel Index Troponin T Albumin LDL Cholesterol Direct PTH Intact Salicylates Acetaminophen Crossmatch 03/02/19 03/02/19 03/02/19 05:15 05:15 05:15 WBC RBC 2.73 L Hgb 7.4 L Hct 23.0 L MCV MCH 27 L MCHC RDW 19.9 H Plt Count Lymph % (Auto) [place] % (Auto) 7.9 H Eos % (Auto) 7.6 H Lymph # 1.0 L [place] # Eos # 0.5 H Seg Neutrophils % Seg Neuts % (Manual) Lymphocytes % (Manual) Eosinophils % (Manual) Seg Neutrophils # Lymphocytes # (Manual) Eosinophils # (Manual) PT INR D-Dimer POC ABG pH POC ABG pCO2 POC ABG pO2 ABG pO2 ABG HCO3 ABG Base Excess ABG Hemoglobin Oxyhemoglobin Sodium Potassium Chloride Carbon Dioxide BUN 43 H Creatinine 3.2 H Glucose POC Glucose Calcium Phosphorus 2.30 L Magnesium ALT Alkaline Phosphatase Total Creatine Kinase CK-MB (CK-2) Rel Index Troponin T Albumin LDL Cholesterol Direct PTH Intact 267.6 H Salicylates Acetaminophen Crossmatch 03/02/19 03/02/19 03/03/19 12:32 18:20 13:30 WBC RBC Hgb Hct MCV MCH MCHC RDW Plt Count Lymph % (Auto) [place] % (Auto) Eos % (Auto) Lymph # [place] # Eos # Seg Neutrophils % Seg Neuts % (Manual) Lymphocytes % (Manual) Eosinophils % (Manual) Seg Neutrophils # Lymphocytes # (Manual) Eosinophils # (Manual) PT INR D-Dimer POC ABG pH POC ABG pCO2 POC ABG pO2 ABG pO2 ABG HCO3 ABG Base Excess ABG Hemoglobin Oxyhemoglobin Sodium Potassium Chloride 97.3 L Carbon Dioxide BUN 26 H Creatinine 2.2 H Glucose 73 L POC Glucose 111 H 156 H Calcium Phosphorus Magnesium ALT Alkaline Phosphatase Total Creatine Kinase CK-MB (CK-2) Rel Index Troponin T Albumin LDL Cholesterol Direct PTH Intact Salicylates Acetaminophen Crossmatch 03/04/19 03/04/19 03/04/19 00:02 05:37 05:40 WBC RBC 2.63 L Hgb 7.2 L Hct 22.2 L MCV MCH MCHC RDW 20.2 H Plt Count Lymph % (Auto) 10.5 L [place] % (Auto) Eos % (Auto) 4.6 H Lymph # 0.7 L [place] # Eos # Seg Neutrophils % 76.9 H Seg Neuts % (Manual) Lymphocytes % (Manual) Eosinophils % (Manual) Seg Neutrophils # Lymphocytes # (Manual) Eosinophils # (Manual) PT INR D-Dimer POC ABG pH POC ABG pCO2 POC ABG pO2 ABG pO2 ABG HCO3 ABG Base Excess ABG Hemoglobin Oxyhemoglobin Sodium Potassium Chloride Carbon Dioxide BUN Creatinine Glucose POC Glucose 136 H 123 H Calcium Phosphorus Magnesium ALT Alkaline Phosphatase Total Creatine Kinase CK-MB (CK-2) Rel Index Troponin T Albumin LDL Cholesterol Direct PTH Intact Salicylates Acetaminophen Crossmatch 03/04/19 03/04/19 03/04/19 05:40 11:39 23:20 WBC RBC Hgb Hct MCV MCH MCHC RDW Plt Count Lymph % (Auto) [place] % (Auto) Eos % (Auto) Lymph # [place] # Eos # Seg Neutrophils % Seg Neuts % (Manual) Lymphocytes % (Manual) Eosinophils % (Manual) Seg Neutrophils # Lymphocytes # (Manual) Eosinophils # (Manual) PT INR D-Dimer POC ABG pH POC ABG pCO2 POC ABG pO2 ABG pO2 ABG HCO3 ABG Base Excess ABG Hemoglobin Oxyhemoglobin Sodium Potassium Chloride Carbon Dioxide BUN 34 H Creatinine 2.7 H Glucose 114 H POC Glucose 175 H 151 H Calcium Phosphorus Magnesium ALT Alkaline Phosphatase Total Creatine Kinase CK-MB (CK-2) Rel Index Troponin T Albumin LDL Cholesterol Direct PTH Intact Salicylates Acetaminophen Crossmatch 03/05/19 03/05/19 03/05/19 05:37 12:08 17:11 WBC RBC Hgb Hct MCV MCH MCHC RDW Plt Count Lymph % (Auto) [place] % (Auto) Eos % (Auto) Lymph # [place] # Eos # Seg Neutrophils % Seg Neuts % (Manual) Lymphocytes % (Manual) Eosinophils % (Manual) Seg Neutrophils # Lymphocytes # (Manual) Eosinophils # (Manual) PT INR D-Dimer POC ABG pH POC ABG pCO2 POC ABG pO2 ABG pO2 ABG HCO3 ABG Base Excess ABG Hemoglobin Oxyhemoglobin Sodium Potassium Chloride Carbon Dioxide BUN Creatinine Glucose POC Glucose 134 H 135 H 135 H Calcium Phosphorus Magnesium ALT Alkaline Phosphatase Total Creatine Kinase CK-MB (CK-2) Rel Index Troponin T Albumin LDL Cholesterol Direct PTH Intact Salicylates Acetaminophen Crossmatch 03/06/19 03/06/19 03/06/19 00:16 13:05 18:09 WBC RBC Hgb Hct MCV MCH MCHC RDW Plt Count Lymph % (Auto) [place] % (Auto) Eos % (Auto) Lymph # [place] # Eos # Seg Neutrophils % Seg Neuts % (Manual) Lymphocytes % (Manual) Eosinophils % (Manual) Seg Neutrophils # Lymphocytes # (Manual) Eosinophils # (Manual) PT INR D-Dimer POC ABG pH POC ABG pCO2 POC ABG pO2 ABG pO2 ABG HCO3 ABG Base Excess ABG Hemoglobin Oxyhemoglobin Sodium Potassium Chloride Carbon Dioxide BUN Creatinine Glucose POC Glucose 117 H 113 H 131 H Calcium Phosphorus Magnesium ALT Alkaline Phosphatase Total Creatine Kinase CK-MB (CK-2) Rel Index Troponin T Albumin LDL Cholesterol Direct PTH Intact Salicylates Acetaminophen Crossmatch 03/07/19 03/08/19 03/08/19 05:25 05:33 16:00 WBC RBC 2.44 L Hgb 6.6 L Hct 20.8 L MCV MCH 27 L MCHC RDW 19.2 H Plt Count Lymph % (Auto) [place] % (Auto) Eos % (Auto) 8.6 H Lymph # 0.8 L [place] # Eos # 0.5 H Seg Neutrophils % 70.7 H Seg Neuts % (Manual) Lymphocytes % (Manual) Eosinophils % (Manual) Seg Neutrophils # Lymphocytes # (Manual) Eosinophils # (Manual) PT INR D-Dimer POC ABG pH POC ABG pCO2 POC ABG pO2 ABG pO2 ABG HCO3 ABG Base Excess ABG Hemoglobin Oxyhemoglobin Sodium Potassium Chloride Carbon Dioxide BUN Creatinine Glucose POC Glucose 106 H 108 H Calcium Phosphorus Magnesium ALT Alkaline Phosphatase Total Creatine Kinase CK-MB (CK-2) Rel Index Troponin T Albumin LDL Cholesterol Direct PTH Intact Salicylates Acetaminophen Crossmatch 03/08/19 03/08/19 03/08/19 16:00 18:38 Unknown WBC RBC Hgb Hct MCV MCH MCHC RDW Plt Count Lymph % (Auto) [place] % (Auto) Eos % (Auto) Lymph # [place] # Eos # Seg Neutrophils % Seg Neuts % (Manual) Lymphocytes % (Manual) Eosinophils % (Manual) Seg Neutrophils # Lymphocytes # (Manual) Eosinophils # (Manual) PT INR D-Dimer POC ABG pH POC ABG pCO2 POC ABG pO2 ABG pO2 ABG HCO3 ABG Base Excess ABG Hemoglobin Oxyhemoglobin Sodium Potassium 5.4 H D Chloride Carbon Dioxide BUN 47 H Creatinine 2.6 H Glucose POC Glucose 123 H Calcium Phosphorus Magnesium ALT < 5 L Alkaline Phosphatase Total Creatine Kinase CK-MB (CK-2) Rel Index Troponin T Albumin 2.2 L LDL Cholesterol Direct PTH Intact Salicylates Acetaminophen Crossmatch See Detail 03/09/19 03/09/19 03/09/19 10:48 12:28 13:53 WBC RBC 2.85 L Hgb 7.7 L Hct 24.2 L MCV MCH 27 L MCHC RDW 18.7 H Plt Count Lymph % (Auto) [place] % (Auto) Eos % (Auto) Lymph # [place] # Eos # Seg Neutrophils % Seg Neuts % (Manual) Lymphocytes % (Manual) Eosinophils % (Manual) Seg Neutrophils # Lymphocytes # (Manual) Eosinophils # (Manual) PT INR D-Dimer POC ABG pH POC ABG pCO2 POC ABG pO2 ABG pO2 ABG HCO3 30.5 H ABG Base Excess 5.6 H ABG Hemoglobin 8.1 L Oxyhemoglobin 93.8 L Sodium Potassium Chloride Carbon Dioxide BUN Creatinine Glucose POC Glucose 114 H Calcium Phosphorus Magnesium ALT Alkaline Phosphatase Total Creatine Kinase CK-MB (CK-2) Rel Index Troponin T Albumin LDL Cholesterol Direct PTH Intact Salicylates Acetaminophen Crossmatch 03/09/19 03/09/19 03/10/19 17:58 23:53 12:01 WBC RBC Hgb Hct MCV MCH MCHC RDW Plt Count Lymph % (Auto) [place] % (Auto) Eos % (Auto) Lymph # [place] # Eos # Seg Neutrophils % Seg Neuts % (Manual) Lymphocytes % (Manual) Eosinophils % (Manual) Seg Neutrophils # Lymphocytes # (Manual) Eosinophils # (Manual) PT INR D-Dimer POC ABG pH POC ABG pCO2 POC ABG pO2 ABG pO2 ABG HCO3 ABG Base Excess ABG Hemoglobin Oxyhemoglobin Sodium Potassium Chloride Carbon Dioxide BUN Creatinine Glucose POC Glucose 108 H 128 H 144 H Calcium Phosphorus Magnesium ALT Alkaline Phosphatase Total Creatine Kinase CK-MB (CK-2) Rel Index Troponin T Albumin LDL Cholesterol Direct PTH Intact Salicylates Acetaminophen Crossmatch 03/10/19 03/11/19 03/11/19 16:50 00:24 05:02 WBC RBC Hgb Hct MCV MCH MCHC RDW Plt Count Lymph % (Auto) [place] % (Auto) Eos % (Auto) Lymph # [place] # Eos # Seg Neutrophils % Seg Neuts % (Manual) Lymphocytes % (Manual) Eosinophils % (Manual) Seg Neutrophils # Lymphocytes # (Manual) Eosinophils # (Manual) PT INR D-Dimer POC ABG pH POC ABG pCO2 POC ABG pO2 ABG pO2 ABG HCO3 ABG Base Excess ABG Hemoglobin Oxyhemoglobin Sodium Potassium Chloride Carbon Dioxide BUN Creatinine Glucose POC Glucose 147 H 123 H 120 H Calcium Phosphorus Magnesium ALT Alkaline Phosphatase Total Creatine Kinase CK-MB (CK-2) Rel Index Troponin T Albumin LDL Cholesterol Direct PTH Intact Salicylates Acetaminophen Crossmatch 03/11/19 03/11/19 03/11/19 11:56 12:20 18:37 WBC RBC Hgb Hct MCV MCH MCHC RDW Plt Count Lymph % (Auto) [place] % (Auto) Eos % (Auto) Lymph # [place] # Eos # Seg Neutrophils % Seg Neuts % (Manual) Lymphocytes % (Manual) Eosinophils % (Manual) Seg Neutrophils # Lymphocytes # (Manual) Eosinophils # (Manual) PT INR D-Dimer POC ABG pH POC ABG pCO2 POC ABG pO2 ABG pO2 ABG HCO3 ABG Base Excess ABG Hemoglobin Oxyhemoglobin Sodium Potassium 5.2 H Chloride Carbon Dioxide BUN Creatinine Glucose POC Glucose 123 H 125 H Calcium Phosphorus Magnesium ALT Alkaline Phosphatase Total Creatine Kinase CK-MB (CK-2) Rel Index Troponin T Albumin LDL Cholesterol Direct PTH Intact Salicylates Acetaminophen Crossmatch 03/11/19 03/12/19 03/12/19 22:52 12:04 18:25 WBC RBC Hgb Hct MCV MCH MCHC RDW Plt Count Lymph % (Auto) [place] % (Auto) Eos % (Auto) Lymph # [place] # Eos # Seg Neutrophils % Seg Neuts % (Manual) Lymphocytes % (Manual) Eosinophils % (Manual) Seg Neutrophils # Lymphocytes # (Manual) Eosinophils # (Manual) PT INR D-Dimer POC ABG pH POC ABG pCO2 POC ABG pO2 ABG pO2 ABG HCO3 ABG Base Excess ABG Hemoglobin Oxyhemoglobin Sodium Potassium Chloride Carbon Dioxide BUN Creatinine Glucose POC Glucose 110 H 106 H 118 H Calcium Phosphorus Magnesium ALT Alkaline Phosphatase Total Creatine Kinase CK-MB (CK-2) Rel Index Troponin T Albumin LDL Cholesterol Direct PTH Intact Salicylates Acetaminophen Crossmatch 03/12/19 03/13/19 03/13/19 23:36 04:38 04:38 WBC RBC 2.95 L Hgb 7.9 L Hct 24.9 L MCV MCH 27 L MCHC RDW 19.9 H Plt Count Lymph % (Auto) 11.1 L [place] % (Auto) 8.1 H Eos % (Auto) 4.4 H Lymph # 0.9 L [place] # Eos # Seg Neutrophils % 75.4 H Seg Neuts % (Manual) Lymphocytes % (Manual) Eosinophils % (Manual) Seg Neutrophils # Lymphocytes # (Manual) Eosinophils # (Manual) PT INR D-Dimer POC ABG pH POC ABG pCO2 POC ABG pO2 ABG pO2 ABG HCO3 ABG Base Excess ABG Hemoglobin Oxyhemoglobin Sodium 136 L Potassium 5.1 H Chloride 93.8 L Carbon Dioxide BUN 48 H Creatinine 2.7 H Glucose 102 H POC Glucose 115 H Calcium Phosphorus Magnesium ALT < 5 L Alkaline Phosphatase 143 H Total Creatine Kinase CK-MB (CK-2) Rel Index Troponin T Albumin 2.5 L LDL Cholesterol Direct PTH Intact Salicylates Acetaminophen Crossmatch 03/13/19 03/13/19 03/13/19 05:33 13:37 18:03 WBC RBC Hgb Hct MCV MCH MCHC RDW Plt Count Lymph % (Auto) [place] % (Auto) Eos % (Auto) Lymph # [place] # Eos # Seg Neutrophils % Seg Neuts % (Manual) Lymphocytes % (Manual) Eosinophils % (Manual) Seg Neutrophils # Lymphocytes # (Manual) Eosinophils # (Manual) PT INR D-Dimer POC ABG pH POC ABG pCO2 POC ABG pO2 ABG pO2 ABG HCO3 ABG Base Excess ABG Hemoglobin Oxyhemoglobin Sodium Potassium Chloride Carbon Dioxide BUN Creatinine Glucose POC Glucose 140 H 150 H 158 H Calcium Phosphorus Magnesium ALT Alkaline Phosphatase Total Creatine Kinase CK-MB (CK-2) Rel Index Troponin T Albumin LDL Cholesterol Direct PTH Intact Salicylates Acetaminophen Crossmatch 03/13/19 03/14/19 03/14/19 23:32 05:24 12:20 WBC RBC Hgb Hct MCV MCH MCHC RDW Plt Count Lymph % (Auto) [place] % (Auto) Eos % (Auto) Lymph # [place] # Eos # Seg Neutrophils % Seg Neuts % (Manual) Lymphocytes % (Manual) Eosinophils % (Manual) Seg Neutrophils # Lymphocytes # (Manual) Eosinophils # (Manual) PT INR D-Dimer POC ABG pH POC ABG pCO2 POC ABG pO2 ABG pO2 ABG HCO3 ABG Base Excess ABG Hemoglobin Oxyhemoglobin Sodium Potassium Chloride Carbon Dioxide BUN Creatinine Glucose POC Glucose 162 H 146 H 127 H Calcium Phosphorus Magnesium ALT Alkaline Phosphatase Total Creatine Kinase CK-MB (CK-2) Rel Index Troponin T Albumin LDL Cholesterol Direct PTH Intact Salicylates Acetaminophen Crossmatch 03/14/19 03/14/19 03/15/19 18:05 23:57 04:38 WBC 12.8 H RBC 3.11 L Hgb 8.1 L Hct 26.5 L MCV MCH 26 L MCHC 31 L RDW 19.7 H Plt Count Lymph % (Auto) 4.4 L [place] % (Auto) 7.4 H Eos % (Auto) Lymph # 0.6 L [place] # 0.9 H Eos # Seg Neutrophils % 87.3 H Seg Neuts % (Manual) Lymphocytes % (Manual) Eosinophils % (Manual) Seg Neutrophils # 11.2 H Lymphocytes # (Manual) Eosinophils # (Manual) PT INR D-Dimer POC ABG pH POC ABG pCO2 POC ABG pO2 ABG pO2 ABG HCO3 ABG Base Excess ABG Hemoglobin Oxyhemoglobin Sodium Potassium Chloride Carbon Dioxide BUN Creatinine Glucose POC Glucose 142 H 155 H Calcium Phosphorus Magnesium ALT Alkaline Phosphatase Total Creatine Kinase CK-MB (CK-2) Rel Index Troponin T Albumin LDL Cholesterol Direct PTH Intact Salicylates Acetaminophen Crossmatch 03/15/19 03/15/19 03/15/19 04:38 05:31 11:32 WBC RBC Hgb Hct MCV MCH MCHC RDW Plt Count Lymph % (Auto) [place] % (Auto) Eos % (Auto) Lymph # [place] # Eos # Seg Neutrophils % Seg Neuts % (Manual) Lymphocytes % (Manual) Eosinophils % (Manual) Seg Neutrophils # Lymphocytes # (Manual) Eosinophils # (Manual) PT INR D-Dimer POC ABG pH POC ABG pCO2 POC ABG pO2 ABG pO2 ABG HCO3 ABG Base Excess ABG Hemoglobin Oxyhemoglobin Sodium 135 L Potassium Chloride 91.9 L Carbon Dioxide BUN 54 H Creatinine 2.8 H Glucose 128 H POC Glucose 160 H 109 H Calcium 11.1 H Phosphorus Magnesium ALT Alkaline Phosphatase 161 H Total Creatine Kinase CK-MB (CK-2) Rel Index Troponin T Albumin 2.3 L LDL Cholesterol Direct PTH Intact Salicylates Acetaminophen Crossmatch 03/15/19 03/15/19 03/16/19 18:15 23:41 05:40 WBC RBC Hgb Hct MCV MCH MCHC RDW Plt Count Lymph % (Auto) [place] % (Auto) Eos % (Auto) Lymph # [place] # Eos # Seg Neutrophils % Seg Neuts % (Manual) Lymphocytes % (Manual) Eosinophils % (Manual) Seg Neutrophils # Lymphocytes # (Manual) Eosinophils # (Manual) PT INR D-Dimer POC ABG pH POC ABG pCO2 POC ABG pO2 ABG pO2 ABG HCO3 ABG Base Excess ABG Hemoglobin Oxyhemoglobin Sodium Potassium Chloride Carbon Dioxide BUN Creatinine Glucose POC Glucose 151 H 110 H 163 H Calcium Phosphorus Magnesium ALT Alkaline Phosphatase Total Creatine Kinase CK-MB (CK-2) Rel Index Troponin T Albumin LDL Cholesterol Direct PTH Intact Salicylates Acetaminophen Crossmatch 03/16/19 03/16/19 03/16/19 11:55 17:04 23:58 WBC RBC Hgb Hct MCV MCH MCHC RDW Plt Count Lymph % (Auto) [place] % (Auto) Eos % (Auto) Lymph # [place] # Eos # Seg Neutrophils % Seg Neuts % (Manual) Lymphocytes % (Manual) Eosinophils % (Manual) Seg Neutrophils # Lymphocytes # (Manual) Eosinophils # (Manual) PT INR D-Dimer POC ABG pH POC ABG pCO2 POC ABG pO2 ABG pO2 ABG HCO3 ABG Base Excess ABG Hemoglobin Oxyhemoglobin Sodium Potassium Chloride Carbon Dioxide BUN Creatinine Glucose POC Glucose 114 H 147 H 192 H Calcium Phosphorus Magnesium ALT Alkaline Phosphatase Total Creatine Kinase CK-MB (CK-2) Rel Index Troponin T Albumin LDL Cholesterol Direct PTH Intact Salicylates Acetaminophen Crossmatch 03/17/19 03/17/19 03/17/19 05:53 11:17 17:01 WBC RBC Hgb Hct MCV MCH MCHC RDW Plt Count Lymph % (Auto) [place] % (Auto) Eos % (Auto) Lymph # [place] # Eos # Seg Neutrophils % Seg Neuts % (Manual) Lymphocytes % (Manual) Eosinophils % (Manual) Seg Neutrophils # Lymphocytes # (Manual) Eosinophils # (Manual) PT INR D-Dimer POC ABG pH POC ABG pCO2 POC ABG pO2 ABG pO2 ABG HCO3 ABG Base Excess ABG Hemoglobin Oxyhemoglobin Sodium Potassium Chloride Carbon Dioxide BUN Creatinine Glucose POC Glucose 151 H 161 H 152 H Calcium Phosphorus Magnesium ALT Alkaline Phosphatase Total Creatine Kinase CK-MB (CK-2) Rel Index Troponin T Albumin LDL Cholesterol Direct PTH Intact Salicylates Acetaminophen Crossmatch 03/17/19 03/18/19 03/18/19 21:47 04:15 04:44 WBC RBC Hgb Hct MCV MCH MCHC RDW Plt Count Lymph % (Auto) [place] % (Auto) Eos % (Auto) Lymph # [place] # Eos # Seg Neutrophils % Seg Neuts % (Manual) Lymphocytes % (Manual) Eosinophils % (Manual) Seg Neutrophils # Lymphocytes # (Manual) Eosinophils # (Manual) PT INR D-Dimer POC ABG pH POC ABG pCO2 POC ABG pO2 ABG pO2 102.8 H ABG HCO3 28.3 H ABG Base Excess ABG Hemoglobin 10.4 L Oxyhemoglobin 94.5 L Sodium Potassium Chloride Carbon Dioxide BUN Creatinine Glucose POC Glucose 170 H 150 H Calcium Phosphorus Magnesium ALT Alkaline Phosphatase Total Creatine Kinase CK-MB (CK-2) Rel Index Troponin T Albumin LDL Cholesterol Direct PTH Intact Salicylates Acetaminophen Crossmatch 03/18/19 03/18/19 03/18/19 06:38 12:12 17:47 WBC RBC Hgb Hct MCV MCH MCHC RDW Plt Count Lymph % (Auto) [place] % (Auto) Eos % (Auto) Lymph # [place] # Eos # Seg Neutrophils % Seg Neuts % (Manual) Lymphocytes % (Manual) Eosinophils % (Manual) Seg Neutrophils # Lymphocytes # (Manual) Eosinophils # (Manual) PT INR D-Dimer POC ABG pH 7.510 H POC ABG pCO2 POC ABG pO2 164 H ABG pO2 ABG HCO3 ABG Base Excess ABG Hemoglobin Oxyhemoglobin Sodium Potassium Chloride Carbon Dioxide BUN Creatinine Glucose POC Glucose 145 H 149 H Calcium Phosphorus Magnesium ALT Alkaline Phosphatase Total Creatine Kinase CK-MB (CK-2) Rel Index Troponin T Albumin LDL Cholesterol Direct PTH Intact Salicylates Acetaminophen Crossmatch 03/18/19 03/19/19 03/19/19 23:25 01:11 04:23 WBC 15.6 H RBC 2.51 L Hgb 6.5 L Hct 21.6 L MCV MCH 26 L MCHC 30 L RDW 19.8 H Plt Count Lymph % (Auto) 6.0 L [place] % (Auto) Eos % (Auto) Lymph # 0.9 L [place] # 1.0 H Eos # Seg Neutrophils % 85.5 H Seg Neuts % (Manual) Lymphocytes % (Manual) Eosinophils % (Manual) Seg Neutrophils # 13.4 H Lymphocytes # (Manual) Eosinophils # (Manual) PT INR D-Dimer POC ABG pH POC ABG pCO2 POC ABG pO2 ABG pO2 78.3 L ABG HCO3 30.7 H ABG Base Excess 5.8 H ABG Hemoglobin 5.8 L Oxyhemoglobin 94.6 L Sodium Potassium Chloride Carbon Dioxide BUN Creatinine Glucose POC Glucose 190 H Calcium Phosphorus Magnesium ALT Alkaline Phosphatase Total Creatine Kinase CK-MB (CK-2) Rel Index Troponin T Albumin LDL Cholesterol Direct PTH Intact Salicylates Acetaminophen Crossmatch 03/19/19 03/19/19 03/19/19 05:22 05:35 08:54 WBC RBC Hgb Hct MCV MCH MCHC RDW Plt Count Lymph % (Auto) [place] % (Auto) Eos % (Auto) Lymph # [place] # Eos # Seg Neutrophils % Seg Neuts % (Manual) Lymphocytes % (Manual) Eosinophils % (Manual) Seg Neutrophils # Lymphocytes # (Manual) Eosinophils # (Manual) PT INR D-Dimer POC ABG pH POC ABG pCO2 POC ABG pO2 ABG pO2 ABG HCO3 ABG Base Excess ABG Hemoglobin Oxyhemoglobin Sodium Potassium Chloride Carbon Dioxide BUN Creatinine Glucose POC Glucose 167 H Calcium Phosphorus Magnesium ALT Alkaline Phosphatase Total Creatine Kinase CK-MB (CK-2) Rel Index Troponin T Albumin LDL Cholesterol Direct PTH Intact Salicylates Acetaminophen Crossmatch See Detail See Detail 03/19/19 03/19/19 03/19/19 12:36 17:02 23:25 WBC RBC Hgb Hct MCV MCH MCHC RDW Plt Count Lymph % (Auto) [place] % (Auto) Eos % (Auto) Lymph # [place] # Eos # Seg Neutrophils % Seg Neuts % (Manual) Lymphocytes % (Manual) Eosinophils % (Manual) Seg Neutrophils # Lymphocytes # (Manual) Eosinophils # (Manual) PT INR D-Dimer POC ABG pH POC ABG pCO2 POC ABG pO2 ABG pO2 ABG HCO3 ABG Base Excess ABG Hemoglobin Oxyhemoglobin Sodium Potassium Chloride Carbon Dioxide BUN Creatinine Glucose POC Glucose 167 H 135 H 136 H Calcium Phosphorus Magnesium ALT Alkaline Phosphatase Total Creatine Kinase CK-MB (CK-2) Rel Index Troponin T Albumin LDL Cholesterol Direct PTH Intact Salicylates Acetaminophen Crossmatch 03/20/19 03/20/19 03/20/19 05:38 08:40 08:40 WBC RBC 2.61 L Hgb 7.1 L Hct 22.0 L MCV MCH 27 L MCHC RDW 19.6 H Plt Count Lymph % (Auto) 8.2 L [place] % (Auto) 8.3 H Eos % (Auto) 5.7 H Lymph # 0.8 L [place] # Eos # 0.5 H Seg Neutrophils % 77.3 H Seg Neuts % (Manual) Lymphocytes % (Manual) Eosinophils % (Manual) Seg Neutrophils # Lymphocytes # (Manual) Eosinophils # (Manual) PT INR D-Dimer POC ABG pH POC ABG pCO2 POC ABG pO2 ABG pO2 ABG HCO3 ABG Base Excess ABG Hemoglobin Oxyhemoglobin Sodium Potassium Chloride 95.9 L Carbon Dioxide BUN 69 H Creatinine 2.8 H Glucose 115 H POC Glucose 134 H Calcium 10.5 H Phosphorus Magnesium ALT Alkaline Phosphatase Total Creatine Kinase CK-MB (CK-2) Rel Index Troponin T Albumin LDL Cholesterol Direct PTH Intact Salicylates Acetaminophen Crossmatch 03/20/19 03/20/19 03/20/19 12:13 18:04 23:49 WBC RBC Hgb Hct MCV MCH MCHC RDW Plt Count Lymph % (Auto) [place] % (Auto) Eos % (Auto) Lymph # [place] # Eos # Seg Neutrophils % Seg Neuts % (Manual) Lymphocytes % (Manual) Eosinophils % (Manual) Seg Neutrophils # Lymphocytes # (Manual) Eosinophils # (Manual) PT INR D-Dimer POC ABG pH POC ABG pCO2 POC ABG pO2 ABG pO2 ABG HCO3 ABG Base Excess ABG Hemoglobin Oxyhemoglobin Sodium Potassium Chloride Carbon Dioxide BUN Creatinine Glucose POC Glucose 144 H 165 H 172 H Calcium Phosphorus Magnesium ALT Alkaline Phosphatase Total Creatine Kinase CK-MB (CK-2) Rel Index Troponin T Albumin LDL Cholesterol Direct PTH Intact Salicylates Acetaminophen Crossmatch 03/21/19 03/21/19 03/21/19 05:00 06:29 06:30 WBC RBC 2.72 L Hgb 7.4 L Hct 22.9 L MCV MCH 27 L MCHC RDW 19.4 H Plt Count Lymph % (Auto) [place] % (Auto) Eos % (Auto) Lymph # [place] # Eos # Seg Neutrophils % Seg Neuts % (Manual) 81.0 H Lymphocytes % (Manual) 8.0 L Eosinophils % (Manual) 8.0 H Seg Neutrophils # Lymphocytes # (Manual) 0.7 L Eosinophils # (Manual) 0.7 H PT INR D-Dimer POC ABG pH POC ABG pCO2 POC ABG pO2 ABG pO2 ABG HCO3 ABG Base Excess ABG Hemoglobin Oxyhemoglobin Sodium Potassium Chloride Carbon Dioxide 33 H BUN 43 H Creatinine 1.7 H Glucose 145 H POC Glucose 156 H Calcium Phosphorus Magnesium ALT Alkaline Phosphatase 212 H Total Creatine Kinase CK-MB (CK-2) Rel Index Troponin T Albumin 2.2 L LDL Cholesterol Direct PTH Intact Salicylates Acetaminophen Crossmatch 03/21/19 03/21/19 03/22/19 12:02 18:07 00:21 WBC RBC Hgb Hct MCV MCH MCHC RDW Plt Count Lymph % (Auto) [place] % (Auto) Eos % (Auto) Lymph # [place] # Eos # Seg Neutrophils % Seg Neuts % (Manual) Lymphocytes % (Manual) Eosinophils % (Manual) Seg Neutrophils # Lymphocytes # (Manual) Eosinophils # (Manual) PT INR D-Dimer POC ABG pH POC ABG pCO2 POC ABG pO2 ABG pO2 ABG HCO3 ABG Base Excess ABG Hemoglobin Oxyhemoglobin Sodium Potassium Chloride Carbon Dioxide BUN Creatinine Glucose POC Glucose 163 H 144 H 153 H Calcium Phosphorus Magnesium ALT Alkaline Phosphatase Total Creatine Kinase CK-MB (CK-2) Rel Index Troponin T Albumin LDL Cholesterol Direct PTH Intact Salicylates Acetaminophen Crossmatch 03/22/19 03/22/19 03/22/19 05:23 05:23 05:31 WBC RBC 2.58 L Hgb 7.1 L Hct 21.8 L MCV MCH 27 L MCHC RDW 19.2 H Plt Count Lymph % (Auto) [place] % (Auto) Eos % (Auto) Lymph # [place] # Eos # Seg Neutrophils % Seg Neuts % (Manual) Lymphocytes % (Manual) Eosinophils % (Manual) Seg Neutrophils # Lymphocytes # (Manual) Eosinophils # (Manual) PT INR D-Dimer POC ABG pH POC ABG pCO2 POC ABG pO2 ABG pO2 ABG HCO3 ABG Base Excess ABG Hemoglobin Oxyhemoglobin Sodium 147 H Potassium Chloride Carbon Dioxide BUN 68 H Creatinine 2.5 H Glucose POC Glucose 116 H Calcium 10.3 H Phosphorus Magnesium ALT Alkaline Phosphatase Total Creatine Kinase CK-MB (CK-2) Rel Index Troponin T Albumin LDL Cholesterol Direct PTH Intact Salicylates Acetaminophen Crossmatch 03/22/19 03/22/19 03/22/19 08:48 12:37 17:35 WBC RBC Hgb Hct MCV MCH MCHC RDW Plt Count Lymph % (Auto) [place] % (Auto) Eos % (Auto) Lymph # [place] # Eos # Seg Neutrophils % Seg Neuts % (Manual) Lymphocytes % (Manual) Eosinophils % (Manual) Seg Neutrophils # Lymphocytes # (Manual) Eosinophils # (Manual) PT INR D-Dimer POC ABG pH POC ABG pCO2 POC ABG pO2 ABG pO2 ABG HCO3 ABG Base Excess ABG Hemoglobin Oxyhemoglobin Sodium Potassium Chloride Carbon Dioxide BUN Creatinine Glucose POC Glucose 143 H 155 H Calcium Phosphorus Magnesium ALT Alkaline Phosphatase Total Creatine Kinase CK-MB (CK-2) Rel Index Troponin T Albumin LDL Cholesterol Direct PTH Intact Salicylates Acetaminophen Crossmatch See Detail 03/23/19 03/23/19 03/23/19 00:07 04:00 04:00 WBC 11.2 H RBC 2.32 L Hgb 6.4 L Hct 19.7 L* MCV MCH MCHC RDW 19.4 H Plt Count Lymph % (Auto) [place] % (Auto) Eos % (Auto) Lymph # [place] # Eos # Seg Neutrophils % Seg Neuts % (Manual) Lymphocytes % (Manual) Eosinophils % (Manual) Seg Neutrophils # Lymphocytes # (Manual) Eosinophils # (Manual) PT INR D-Dimer POC ABG pH POC ABG pCO2 POC ABG pO2 ABG pO2 ABG HCO3 ABG Base Excess ABG Hemoglobin Oxyhemoglobin Sodium 147 H Potassium 5.2 H Chloride Carbon Dioxide BUN 86 H Creatinine 3.2 H Glucose 128 H POC Glucose 135 H Calcium 10.3 H Phosphorus Magnesium ALT Alkaline Phosphatase Total Creatine Kinase CK-MB (CK-2) Rel Index Troponin T Albumin LDL Cholesterol Direct PTH Intact Salicylates Acetaminophen Crossmatch 03/23/19 03/23/19 03/23/19 05:21 11:36 11:36 WBC RBC Hgb 7.9 L Hct 25.0 L MCV MCH MCHC RDW Plt Count Lymph % (Auto) [place] % (Auto) Eos % (Auto) Lymph # [place] # Eos # Seg Neutrophils % Seg Neuts % (Manual) Lymphocytes % (Manual) Eosinophils % (Manual) Seg Neutrophils # Lymphocytes # (Manual) Eosinophils # (Manual) PT INR D-Dimer POC ABG pH POC ABG pCO2 POC ABG pO2 ABG pO2 ABG HCO3 ABG Base Excess ABG Hemoglobin Oxyhemoglobin Sodium Potassium Chloride Carbon Dioxide BUN Creatinine Glucose POC Glucose 132 H 147 H Calcium Phosphorus Magnesium ALT Alkaline Phosphatase Total Creatine Kinase CK-MB (CK-2) Rel Index Troponin T Albumin LDL Cholesterol Direct PTH Intact Salicylates Acetaminophen Crossmatch 03/23/19 03/24/19 03/24/19 17:31 01:22 04:20 WBC 12.2 H RBC 3.05 L Hgb 8.3 L Hct 25.9 L MCV MCH 27 L MCHC RDW 18.7 H Plt Count Lymph % (Auto) [place] % (Auto) Eos % (Auto) Lymph # [place] # Eos # Seg Neutrophils % Seg Neuts % (Manual) Lymphocytes % (Manual) Eosinophils % (Manual) Seg Neutrophils # Lymphocytes # (Manual) Eosinophils # (Manual) PT INR D-Dimer POC ABG pH POC ABG pCO2 POC ABG pO2 ABG pO2 ABG HCO3 ABG Base Excess ABG Hemoglobin Oxyhemoglobin Sodium Potassium Chloride Carbon Dioxide BUN Creatinine Glucose POC Glucose 182 H 113 H Calcium Phosphorus Magnesium ALT Alkaline Phosphatase Total Creatine Kinase CK-MB (CK-2) Rel Index Troponin T Albumin LDL Cholesterol Direct PTH Intact Salicylates Acetaminophen Crossmatch 03/24/19 03/24/19 03/24/19 04:20 11:59 18:14 WBC RBC Hgb Hct MCV MCH MCHC RDW Plt Count Lymph % (Auto) [place] % (Auto) Eos % (Auto) Lymph # [place] # Eos # Seg Neutrophils % Seg Neuts % (Manual) Lymphocytes % (Manual) Eosinophils % (Manual) Seg Neutrophils # Lymphocytes # (Manual) Eosinophils # (Manual) PT INR D-Dimer POC ABG pH POC ABG pCO2 POC ABG pO2 ABG pO2 ABG HCO3 ABG Base Excess ABG Hemoglobin Oxyhemoglobin Sodium Potassium Chloride 94.8 L Carbon Dioxide 32 H BUN 53 H Creatinine 2.3 H Glucose POC Glucose 163 H 134 H Calcium Phosphorus Magnesium ALT Alkaline Phosphatase Total Creatine Kinase CK-MB (CK-2) Rel Index Troponin T Albumin LDL Cholesterol Direct PTH Intact Salicylates Acetaminophen Crossmatch 03/24/19 03/25/19 03/25/19 23:15 05:52 12:02 WBC RBC Hgb Hct MCV MCH MCHC RDW Plt Count Lymph % (Auto) [place] % (Auto) Eos % (Auto) Lymph # [place] # Eos # Seg Neutrophils % Seg Neuts % (Manual) Lymphocytes % (Manual) Eosinophils % (Manual) Seg Neutrophils # Lymphocytes # (Manual) Eosinophils # (Manual) PT INR D-Dimer POC ABG pH POC ABG pCO2 POC ABG pO2 ABG pO2 ABG HCO3 ABG Base Excess ABG Hemoglobin Oxyhemoglobin Sodium Potassium Chloride Carbon Dioxide BUN Creatinine Glucose POC Glucose 129 H 123 H 125 H Calcium Phosphorus Magnesium ALT Alkaline Phosphatase Total Creatine Kinase CK-MB (CK-2) Rel Index Troponin T Albumin LDL Cholesterol Direct PTH Intact Salicylates Acetaminophen Crossmatch 03/25/19 03/26/19 03/26/19 17:27 00:30 05:35 WBC RBC 3.01 L Hgb 8.1 L Hct 25.7 L MCV MCH 27 L MCHC RDW 19.2 H Plt Count Lymph % (Auto) 11.4 L [place] % (Auto) Eos % (Auto) 8.0 H Lymph # 1.0 L [place] # Eos # 0.7 H Seg Neutrophils % 73.9 H Seg Neuts % (Manual) Lymphocytes % (Manual) Eosinophils % (Manual) Seg Neutrophils # Lymphocytes # (Manual) Eosinophils # (Manual) PT INR D-Dimer POC ABG pH POC ABG pCO2 POC ABG pO2 ABG pO2 ABG HCO3 ABG Base Excess ABG Hemoglobin Oxyhemoglobin Sodium Potassium Chloride Carbon Dioxide BUN Creatinine Glucose POC Glucose 130 H 129 H Calcium Phosphorus Magnesium ALT Alkaline Phosphatase Total Creatine Kinase CK-MB (CK-2) Rel Index Troponin T Albumin LDL Cholesterol Direct PTH Intact Salicylates Acetaminophen Crossmatch 03/26/19 03/26/19 03/26/19 05:35 05:45 12:16 WBC RBC Hgb Hct MCV MCH MCHC RDW Plt Count Lymph % (Auto) [place] % (Auto) Eos % (Auto) Lymph # [place] # Eos # Seg Neutrophils % Seg Neuts % (Manual) Lymphocytes % (Manual) Eosinophils % (Manual) Seg Neutrophils # Lymphocytes # (Manual) Eosinophils # (Manual) PT INR D-Dimer POC ABG pH POC ABG pCO2 POC ABG pO2 ABG pO2 ABG HCO3 ABG Base Excess ABG Hemoglobin Oxyhemoglobin Sodium Potassium Chloride 94.9 L Carbon Dioxide 31 H BUN 44 H Creatinine 2.0 H Glucose POC Glucose 118 H 107 H Calcium Phosphorus Magnesium ALT Alkaline Phosphatase Total Creatine Kinase CK-MB (CK-2) Rel Index Troponin T Albumin LDL Cholesterol Direct PTH Intact Salicylates Acetaminophen Crossmatch 03/26/19 03/27/19 03/27/19 17:56 00:36 05:37 WBC RBC Hgb Hct MCV MCH MCHC RDW Plt Count Lymph % (Auto) [place] % (Auto) Eos % (Auto) Lymph # [place] # Eos # Seg Neutrophils % Seg Neuts % (Manual) Lymphocytes % (Manual) Eosinophils % (Manual) Seg Neutrophils # Lymphocytes # (Manual) Eosinophils # (Manual) PT INR D-Dimer POC ABG pH POC ABG pCO2 POC ABG pO2 ABG pO2 ABG HCO3 ABG Base Excess ABG Hemoglobin Oxyhemoglobin Sodium Potassium Chloride Carbon Dioxide BUN Creatinine Glucose POC Glucose 107 H 110 H 122 H Calcium Phosphorus Magnesium ALT Alkaline Phosphatase Total Creatine Kinase CK-MB (CK-2) Rel Index Troponin T Albumin LDL Cholesterol Direct PTH Intact Salicylates Acetaminophen Crossmatch 03/27/19 03/27/19 03/28/19 11:22 18:00 05:17 WBC RBC Hgb Hct MCV MCH MCHC RDW Plt Count Lymph % (Auto) [place] % (Auto) Eos % (Auto) Lymph # [place] # Eos # Seg Neutrophils % Seg Neuts % (Manual) Lymphocytes % (Manual) Eosinophils % (Manual) Seg Neutrophils # Lymphocytes # (Manual) Eosinophils # (Manual) PT INR D-Dimer POC ABG pH POC ABG pCO2 POC ABG pO2 ABG pO2 ABG HCO3 ABG Base Excess ABG Hemoglobin Oxyhemoglobin Sodium Potassium Chloride Carbon Dioxide BUN Creatinine Glucose POC Glucose 120 H 111 H 107 H Calcium Phosphorus Magnesium ALT Alkaline Phosphatase Total Creatine Kinase CK-MB (CK-2) Rel Index Troponin T Albumin LDL Cholesterol Direct PTH Intact Salicylates Acetaminophen Crossmatch 03/28/19 03/28/19 03/29/19 12:27 18:08 05:47 WBC RBC Hgb Hct MCV MCH MCHC RDW Plt Count Lymph % (Auto) [place] % (Auto) Eos % (Auto) Lymph # [place] # Eos # Seg Neutrophils % Seg Neuts % (Manual) Lymphocytes % (Manual) Eosinophils % (Manual) Seg Neutrophils # Lymphocytes # (Manual) Eosinophils # (Manual) PT INR D-Dimer POC ABG pH POC ABG pCO2 POC ABG pO2 ABG pO2 ABG HCO3 ABG Base Excess ABG Hemoglobin Oxyhemoglobin Sodium Potassium Chloride Carbon Dioxide BUN Creatinine Glucose POC Glucose 114 H 121 H 112 H Calcium Phosphorus Magnesium ALT Alkaline Phosphatase Total Creatine Kinase CK-MB (CK-2) Rel Index Troponin T Albumin LDL Cholesterol Direct PTH Intact Salicylates Acetaminophen Crossmatch 03/29/19 03/29/19 03/30/19 12:14 18:08 00:31 WBC RBC Hgb Hct MCV MCH MCHC RDW Plt Count Lymph % (Auto) [place] % (Auto) Eos % (Auto) Lymph # [place] # Eos # Seg Neutrophils % Seg Neuts % (Manual) Lymphocytes % (Manual) Eosinophils % (Manual) Seg Neutrophils # Lymphocytes # (Manual) Eosinophils # (Manual) PT INR D-Dimer POC ABG pH POC ABG pCO2 POC ABG pO2 ABG pO2 ABG HCO3 ABG Base Excess ABG Hemoglobin Oxyhemoglobin Sodium Potassium Chloride Carbon Dioxide BUN Creatinine Glucose POC Glucose 117 H 140 H 114 H Calcium Phosphorus Magnesium ALT Alkaline Phosphatase Total Creatine Kinase CK-MB (CK-2) Rel Index Troponin T Albumin LDL Cholesterol Direct PTH Intact Salicylates Acetaminophen Crossmatch 03/30/19 03/30/19 03/30/19 10:13 10:13 23:53 WBC RBC 2.81 L Hgb 7.7 L Hct 24.3 L MCV MCH 27 L MCHC RDW 19.0 H Plt Count Lymph % (Auto) 12.2 L [place] % (Auto) Eos % (Auto) 7.9 H Lymph # 1.0 L [place] # Eos # 0.6 H Seg Neutrophils % 72.3 H Seg Neuts % (Manual) Lymphocytes % (Manual) Eosinophils % (Manual) Seg Neutrophils # Lymphocytes # (Manual) Eosinophils # (Manual) PT INR D-Dimer POC ABG pH POC ABG pCO2 POC ABG pO2 ABG pO2 ABG HCO3 ABG Base Excess ABG Hemoglobin Oxyhemoglobin Sodium Potassium 5.1 H Chloride 96.5 L Carbon Dioxide BUN 73 H Creatinine 3.9 H D Glucose POC Glucose 114 H Calcium 10.3 H Phosphorus 6.30 H Magnesium 2.70 H ALT Alkaline Phosphatase 185 H Total Creatine Kinase CK-MB (CK-2) Rel Index Troponin T Albumin 2.6 L LDL Cholesterol Direct PTH Intact Salicylates Acetaminophen Crossmatch 03/31/19 03/31/19 03/31/19 05:45 10:26 10:26 WBC RBC 3.01 L Hgb 8.2 L Hct 26.4 L MCV MCH 27 L MCHC 31 L RDW 20.3 H Plt Count Lymph % (Auto) 13.3 L [place] % (Auto) Eos % (Auto) 7.2 H Lymph # 1.1 L [place] # Eos # 0.6 H Seg Neutrophils % 72.1 H Seg Neuts % (Manual) Lymphocytes % (Manual) Eosinophils % (Manual) Seg Neutrophils # Lymphocytes # (Manual) Eosinophils # (Manual) PT INR D-Dimer POC ABG pH POC ABG pCO2 POC ABG pO2 ABG pO2 ABG HCO3 ABG Base Excess ABG Hemoglobin Oxyhemoglobin Sodium Potassium Chloride 96.9 L Carbon Dioxide 33 H BUN 37 H Creatinine 2.4 H Glucose POC Glucose 108 H Calcium 10.3 H Phosphorus Magnesium ALT Alkaline Phosphatase Total Creatine Kinase CK-MB (CK-2) Rel Index Troponin T Albumin LDL Cholesterol Direct PTH Intact Salicylates Acetaminophen Crossmatch 03/31/19 04/01/19 04/01/19 12:38 05:48 12:06 WBC RBC Hgb Hct MCV MCH MCHC RDW Plt Count Lymph % (Auto) [place] % (Auto) Eos % (Auto) Lymph # [place] # Eos # Seg Neutrophils % Seg Neuts % (Manual) Lymphocytes % (Manual) Eosinophils % (Manual) Seg Neutrophils # Lymphocytes # (Manual) Eosinophils # (Manual) PT INR D-Dimer POC ABG pH POC ABG pCO2 POC ABG pO2 ABG pO2 ABG HCO3 ABG Base Excess ABG Hemoglobin Oxyhemoglobin Sodium Potassium Chloride Carbon Dioxide BUN Creatinine Glucose POC Glucose 108 H 114 H 111 H Calcium Phosphorus Magnesium ALT Alkaline Phosphatase Total Creatine Kinase CK-MB (CK-2) Rel Index Troponin T Albumin LDL Cholesterol Direct PTH Intact Salicylates Acetaminophen Crossmatch 04/01/19 04/02/19 04/04/19 18:24 00:36 23:55 WBC RBC Hgb Hct MCV MCH MCHC RDW Plt Count Lymph % (Auto) [place] % (Auto) Eos % (Auto) Lymph # [place] # Eos # Seg Neutrophils % Seg Neuts % (Manual) Lymphocytes % (Manual) Eosinophils % (Manual) Seg Neutrophils # Lymphocytes # (Manual) Eosinophils # (Manual) PT INR D-Dimer POC ABG pH POC ABG pCO2 POC ABG pO2 ABG pO2 ABG HCO3 ABG Base Excess ABG Hemoglobin Oxyhemoglobin Sodium Potassium Chloride Carbon Dioxide BUN Creatinine Glucose POC Glucose 113 H 117 H 109 H Calcium Phosphorus Magnesium ALT Alkaline Phosphatase Total Creatine Kinase CK-MB (CK-2) Rel Index Troponin T Albumin LDL Cholesterol Direct PTH Intact Salicylates Acetaminophen Crossmatch 04/06/19 04/06/19 04/06/19 00:11 06:02 23:30 WBC RBC Hgb Hct MCV MCH MCHC RDW Plt Count Lymph % (Auto) [place] % (Auto) Eos % (Auto) Lymph # [place] # Eos # Seg Neutrophils % Seg Neuts % (Manual) Lymphocytes % (Manual) Eosinophils % (Manual) Seg Neutrophils # Lymphocytes # (Manual) Eosinophils # (Manual) PT INR D-Dimer POC ABG pH POC ABG pCO2 POC ABG pO2 ABG pO2 ABG HCO3 ABG Base Excess ABG Hemoglobin Oxyhemoglobin Sodium Potassium Chloride Carbon Dioxide BUN Creatinine Glucose POC Glucose 116 H 112 H 112 H Calcium Phosphorus Magnesium ALT Alkaline Phosphatase Total Creatine Kinase CK-MB (CK-2) Rel Index Troponin T Albumin LDL Cholesterol Direct PTH Intact Salicylates Acetaminophen Crossmatch 04/08/19 04/08/19 04/08/19 02:23 06:19 13:01 WBC RBC Hgb Hct MCV MCH MCHC RDW Plt Count Lymph % (Auto) [place] % (Auto) Eos % (Auto) Lymph # [place] # Eos # Seg Neutrophils % Seg Neuts % (Manual) Lymphocytes % (Manual) Eosinophils % (Manual) Seg Neutrophils # Lymphocytes # (Manual) Eosinophils # (Manual) PT INR D-Dimer POC ABG pH POC ABG pCO2 POC ABG pO2 ABG pO2 ABG HCO3 ABG Base Excess ABG Hemoglobin Oxyhemoglobin Sodium Potassium Chloride Carbon Dioxide BUN Creatinine Glucose POC Glucose 144 H 126 H 118 H Calcium Phosphorus Magnesium ALT Alkaline Phosphatase Total Creatine Kinase CK-MB (CK-2) Rel Index Troponin T Albumin LDL Cholesterol Direct PTH Intact Salicylates Acetaminophen Crossmatch 04/08/19 04/09/19 04/10/19 23:28 05:52 06:34 WBC RBC Hgb Hct MCV MCH MCHC RDW Plt Count Lymph % (Auto) [place] % (Auto) Eos % (Auto) Lymph # [place] # Eos # Seg Neutrophils % Seg Neuts % (Manual) Lymphocytes % (Manual) Eosinophils % (Manual) Seg Neutrophils # Lymphocytes # (Manual) Eosinophils # (Manual) PT INR D-Dimer POC ABG pH POC ABG pCO2 POC ABG pO2 ABG pO2 ABG HCO3 ABG Base Excess ABG Hemoglobin Oxyhemoglobin Sodium Potassium Chloride Carbon Dioxide BUN Creatinine Glucose POC Glucose 119 H 116 H 114 H Calcium Phosphorus Magnesium ALT Alkaline Phosphatase Total Creatine Kinase CK-MB (CK-2) Rel Index Troponin T Albumin LDL Cholesterol Direct PTH Intact Salicylates Acetaminophen Crossmatch 04/10/19 04/10/19 04/11/19 12:34 18:59 00:36 WBC RBC Hgb Hct MCV MCH MCHC RDW Plt Count Lymph % (Auto) [place] % (Auto) Eos % (Auto) Lymph # [place] # Eos # Seg Neutrophils % Seg Neuts % (Manual) Lymphocytes % (Manual) Eosinophils % (Manual) Seg Neutrophils # Lymphocytes # (Manual) Eosinophils # (Manual) PT INR D-Dimer POC ABG pH POC ABG pCO2 POC ABG pO2 ABG pO2 ABG HCO3 ABG Base Excess ABG Hemoglobin Oxyhemoglobin Sodium Potassium Chloride Carbon Dioxide BUN Creatinine Glucose POC Glucose 112 H 109 H 124 H Calcium Phosphorus Magnesium ALT Alkaline Phosphatase Total Creatine Kinase CK-MB (CK-2) Rel Index Troponin T Albumin LDL Cholesterol Direct PTH Intact Salicylates Acetaminophen Crossmatch 04/11/19 04/11/19 04/12/19 08:01 17:25 02:18 WBC RBC Hgb Hct MCV MCH MCHC RDW Plt Count Lymph % (Auto) [place] % (Auto) Eos % (Auto) Lymph # [place] # Eos # Seg Neutrophils % Seg Neuts % (Manual) Lymphocytes % (Manual) Eosinophils % (Manual) Seg Neutrophils # Lymphocytes # (Manual) Eosinophils # (Manual) PT INR D-Dimer POC ABG pH POC ABG pCO2 POC ABG pO2 ABG pO2 ABG HCO3 ABG Base Excess ABG Hemoglobin Oxyhemoglobin Sodium Potassium Chloride Carbon Dioxide BUN Creatinine Glucose POC Glucose 118 H 106 H 125 H Calcium Phosphorus Magnesium ALT Alkaline Phosphatase Total Creatine Kinase CK-MB (CK-2) Rel Index Troponin T Albumin LDL Cholesterol Direct PTH Intact Salicylates Acetaminophen Crossmatch 04/12/19 04/12/19 04/12/19 06:24 12:22 17:13 WBC RBC Hgb Hct MCV MCH MCHC RDW Plt Count Lymph % (Auto) [place] % (Auto) Eos % (Auto) Lymph # [place] # Eos # Seg Neutrophils % Seg Neuts % (Manual) Lymphocytes % (Manual) Eosinophils % (Manual) Seg Neutrophils # Lymphocytes # (Manual) Eosinophils # (Manual) PT INR D-Dimer POC ABG pH POC ABG pCO2 POC ABG pO2 ABG pO2 ABG HCO3 ABG Base Excess ABG Hemoglobin Oxyhemoglobin Sodium Potassium Chloride Carbon Dioxide BUN Creatinine Glucose POC Glucose 128 H 114 H 110 H Calcium Phosphorus Magnesium ALT Alkaline Phosphatase Total Creatine Kinase CK-MB (CK-2) Rel Index Troponin T Albumin LDL Cholesterol Direct PTH Intact Salicylates Acetaminophen Crossmatch 04/13/19 04/13/19 04/13/19 06:59 07:31 07:31 WBC RBC 3.34 L Hgb 8.9 L Hct 28.6 L MCV MCH 27 L MCHC 31 L RDW 19.6 H Plt Count Lymph % (Auto) [place] % (Auto) Eos % (Auto) Lymph # [place] # Eos # Seg Neutrophils % Seg Neuts % (Manual) Lymphocytes % (Manual) Eosinophils % (Manual) Seg Neutrophils # Lymphocytes # (Manual) Eosinophils # (Manual) PT INR D-Dimer POC ABG pH POC ABG pCO2 POC ABG pO2 ABG pO2 ABG HCO3 ABG Base Excess ABG Hemoglobin Oxyhemoglobin Sodium Potassium Chloride 96.4 L Carbon Dioxide 33 H BUN 66 H Creatinine 4.5 H Glucose 103 H POC Glucose 107 H Calcium Phosphorus Magnesium ALT Alkaline Phosphatase Total Creatine Kinase CK-MB (CK-2) Rel Index Troponin T Albumin LDL Cholesterol Direct PTH Intact Salicylates Acetaminophen Crossmatch 04/13/19 04/14/19 04/14/19 23:43 05:50 13:07 WBC RBC Hgb Hct MCV MCH MCHC RDW Plt Count Lymph % (Auto) [place] % (Auto) Eos % (Auto) Lymph # [place] # Eos # Seg Neutrophils % Seg Neuts % (Manual) Lymphocytes % (Manual) Eosinophils % (Manual) Seg Neutrophils # Lymphocytes # (Manual) Eosinophils # (Manual) PT INR D-Dimer POC ABG pH POC ABG pCO2 POC ABG pO2 ABG pO2 ABG HCO3 ABG Base Excess ABG Hemoglobin Oxyhemoglobin Sodium Potassium Chloride Carbon Dioxide BUN Creatinine Glucose POC Glucose 119 H 112 H 112 H Calcium Phosphorus Magnesium ALT Alkaline Phosphatase Total Creatine Kinase CK-MB (CK-2) Rel Index Troponin T Albumin LDL Cholesterol Direct PTH Intact Salicylates Acetaminophen Crossmatch 04/14/19 04/15/19 04/15/19 18:35 01:18 05:17 WBC RBC Hgb Hct MCV MCH MCHC RDW Plt Count Lymph % (Auto) [place] % (Auto) Eos % (Auto) Lymph # [place] # Eos # Seg Neutrophils % Seg Neuts % (Manual) Lymphocytes % (Manual) Eosinophils % (Manual) Seg Neutrophils # Lymphocytes # (Manual) Eosinophils # (Manual) PT INR D-Dimer POC ABG pH POC ABG pCO2 POC ABG pO2 ABG pO2 ABG HCO3 ABG Base Excess ABG Hemoglobin Oxyhemoglobin Sodium Potassium Chloride Carbon Dioxide BUN Creatinine Glucose POC Glucose 114 H 114 H 114 H Calcium Phosphorus Magnesium ALT Alkaline Phosphatase Total Creatine Kinase CK-MB (CK-2) Rel Index Troponin T Albumin LDL Cholesterol Direct PTH Intact Salicylates Acetaminophen Crossmatch 04/15/19 04/15/19 04/16/19 11:50 23:39 05:41 WBC RBC Hgb Hct MCV MCH MCHC RDW Plt Count Lymph % (Auto) [place] % (Auto) Eos % (Auto) Lymph # [place] # Eos # Seg Neutrophils % Seg Neuts % (Manual) Lymphocytes % (Manual) Eosinophils % (Manual) Seg Neutrophils # Lymphocytes # (Manual) Eosinophils # (Manual) PT INR D-Dimer POC ABG pH POC ABG pCO2 POC ABG pO2 ABG pO2 ABG HCO3 ABG Base Excess ABG Hemoglobin Oxyhemoglobin Sodium Potassium Chloride Carbon Dioxide BUN Creatinine Glucose POC Glucose 109 H 115 H 125 H Calcium Phosphorus Magnesium ALT Alkaline Phosphatase Total Creatine Kinase CK-MB (CK-2) Rel Index Troponin T Albumin LDL Cholesterol Direct PTH Intact Salicylates Acetaminophen Crossmatch 04/16/19 04/17/19 04/17/19 12:53 01:00 12:38 WBC RBC Hgb Hct MCV MCH MCHC RDW Plt Count Lymph % (Auto) [place] % (Auto) Eos % (Auto) Lymph # [place] # Eos # Seg Neutrophils % Seg Neuts % (Manual) Lymphocytes % (Manual) Eosinophils % (Manual) Seg Neutrophils # Lymphocytes # (Manual) Eosinophils # (Manual) PT INR D-Dimer POC ABG pH POC ABG pCO2 POC ABG pO2 ABG pO2 ABG HCO3 ABG Base Excess ABG Hemoglobin Oxyhemoglobin Sodium Potassium Chloride Carbon Dioxide BUN Creatinine Glucose POC Glucose 121 H 127 H 159 H Calcium Phosphorus Magnesium ALT Alkaline Phosphatase Total Creatine Kinase CK-MB (CK-2) Rel Index Troponin T Albumin LDL Cholesterol Direct PTH Intact Salicylates Acetaminophen Crossmatch 04/17/19 04/17/19 04/18/19 18:27 23:36 07:19 WBC RBC 3.49 L Hgb 9.0 L Hct 29.9 L MCV MCH 26 L MCHC 30 L RDW 20.0 H Plt Count Lymph % (Auto) [place] % (Auto) Eos % (Auto) Lymph # [place] # Eos # Seg Neutrophils % Seg Neuts % (Manual) Lymphocytes % (Manual) Eosinophils % (Manual) Seg Neutrophils # Lymphocytes # (Manual) Eosinophils # (Manual) PT INR D-Dimer POC ABG pH POC ABG pCO2 POC ABG pO2 ABG pO2 ABG HCO3 ABG Base Excess ABG Hemoglobin Oxyhemoglobin Sodium Potassium Chloride Carbon Dioxide BUN Creatinine Glucose POC Glucose 109 H 134 H Calcium Phosphorus Magnesium ALT Alkaline Phosphatase Total Creatine Kinase CK-MB (CK-2) Rel Index Troponin T Albumin LDL Cholesterol Direct PTH Intact Salicylates Acetaminophen Crossmatch 04/18/19 04/18/19 04/18/19 07:19 12:16 17:09 WBC RBC Hgb Hct MCV MCH MCHC RDW Plt Count Lymph % (Auto) [place] % (Auto) Eos % (Auto) Lymph # [place] # Eos # Seg Neutrophils % Seg Neuts % (Manual) Lymphocytes % (Manual) Eosinophils % (Manual) Seg Neutrophils # Lymphocytes # (Manual) Eosinophils # (Manual) PT INR D-Dimer POC ABG pH POC ABG pCO2 POC ABG pO2 ABG pO2 ABG HCO3 ABG Base Excess ABG Hemoglobin Oxyhemoglobin Sodium Potassium Chloride Carbon Dioxide BUN 41 H Creatinine 2.9 H Glucose 122 H POC Glucose 125 H 131 H Calcium Phosphorus Magnesium ALT Alkaline Phosphatase Total Creatine Kinase CK-MB (CK-2) Rel Index Troponin T Albumin LDL Cholesterol Direct PTH Intact Salicylates Acetaminophen Crossmatch 04/18/19 04/19/19 04/19/19 23:57 05:55 11:35 WBC RBC Hgb Hct MCV MCH MCHC RDW Plt Count Lymph % (Auto) [place] % (Auto) Eos % (Auto) Lymph # [place] # Eos # Seg Neutrophils % Seg Neuts % (Manual) Lymphocytes % (Manual) Eosinophils % (Manual) Seg Neutrophils # Lymphocytes # (Manual) Eosinophils # (Manual) PT INR D-Dimer POC ABG pH POC ABG pCO2 POC ABG pO2 ABG pO2 ABG HCO3 ABG Base Excess ABG Hemoglobin Oxyhemoglobin Sodium Potassium Chloride Carbon Dioxide BUN Creatinine Glucose POC Glucose 159 H 144 H 177 H Calcium Phosphorus Magnesium ALT Alkaline Phosphatase Total Creatine Kinase CK-MB (CK-2) Rel Index Troponin T Albumin LDL Cholesterol Direct PTH Intact Salicylates Acetaminophen Crossmatch 04/19/19 04/20/19 04/20/19 16:36 02:05 06:28 WBC RBC Hgb Hct MCV MCH MCHC RDW Plt Count Lymph % (Auto) [place] % (Auto) Eos % (Auto) Lymph # [place] # Eos # Seg Neutrophils % Seg Neuts % (Manual) Lymphocytes % (Manual) Eosinophils % (Manual) Seg Neutrophils # Lymphocytes # (Manual) Eosinophils # (Manual) PT INR D-Dimer POC ABG pH POC ABG pCO2 POC ABG pO2 ABG pO2 ABG HCO3 ABG Base Excess ABG Hemoglobin Oxyhemoglobin Sodium Potassium Chloride Carbon Dioxide BUN Creatinine Glucose POC Glucose 134 H 142 H 132 H Calcium Phosphorus Magnesium ALT Alkaline Phosphatase Total Creatine Kinase CK-MB (CK-2) Rel Index Troponin T Albumin LDL Cholesterol Direct PTH Intact Salicylates Acetaminophen Crossmatch 04/20/19 04/20/19 04/21/19 12:37 23:34 05:59 WBC RBC Hgb Hct MCV MCH MCHC RDW Plt Count Lymph % (Auto) [place] % (Auto) Eos % (Auto) Lymph # [place] # Eos # Seg Neutrophils % Seg Neuts % (Manual) Lymphocytes % (Manual) Eosinophils % (Manual) Seg Neutrophils # Lymphocytes # (Manual) Eosinophils # (Manual) PT INR D-Dimer POC ABG pH POC ABG pCO2 POC ABG pO2 ABG pO2 ABG HCO3 ABG Base Excess ABG Hemoglobin Oxyhemoglobin Sodium Potassium Chloride Carbon Dioxide BUN Creatinine Glucose POC Glucose 163 H 166 H 140 H Calcium Phosphorus Magnesium ALT Alkaline Phosphatase Total Creatine Kinase CK-MB (CK-2) Rel Index Troponin T Albumin LDL Cholesterol Direct PTH Intact Salicylates Acetaminophen Crossmatch 04/21/19 04/21/19 04/21/19 12:07 17:22 23:43 WBC RBC Hgb Hct MCV MCH MCHC RDW Plt Count Lymph % (Auto) [place] % (Auto) Eos % (Auto) Lymph # [place] # Eos # Seg Neutrophils % Seg Neuts % (Manual) Lymphocytes % (Manual) Eosinophils % (Manual) Seg Neutrophils # Lymphocytes # (Manual) Eosinophils # (Manual) PT INR D-Dimer POC ABG pH POC ABG pCO2 POC ABG pO2 ABG pO2 ABG HCO3 ABG Base Excess ABG Hemoglobin Oxyhemoglobin Sodium Potassium Chloride Carbon Dioxide BUN Creatinine Glucose POC Glucose 135 H 141 H 138 H Calcium Phosphorus Magnesium ALT Alkaline Phosphatase Total Creatine Kinase CK-MB (CK-2) Rel Index Troponin T Albumin LDL Cholesterol Direct PTH Intact Salicylates Acetaminophen Crossmatch 04/22/19 04/22/19 04/22/19 05:12 18:24 23:49 WBC RBC Hgb Hct MCV MCH MCHC RDW Plt Count Lymph % (Auto) [place] % (Auto) Eos % (Auto) Lymph # [place] # Eos # Seg Neutrophils % Seg Neuts % (Manual) Lymphocytes % (Manual) Eosinophils % (Manual) Seg Neutrophils # Lymphocytes # (Manual) Eosinophils # (Manual) PT INR D-Dimer POC ABG pH POC ABG pCO2 POC ABG pO2 ABG pO2 ABG HCO3 ABG Base Excess ABG Hemoglobin Oxyhemoglobin Sodium Potassium Chloride Carbon Dioxide BUN Creatinine Glucose POC Glucose 141 H 137 H 142 H Calcium Phosphorus Magnesium ALT Alkaline Phosphatase Total Creatine Kinase CK-MB (CK-2) Rel Index Troponin T Albumin LDL Cholesterol Direct PTH Intact Salicylates Acetaminophen Crossmatch 04/23/19 04/23/19 04/23/19 05:53 08:13 11:58 WBC RBC Hgb Hct MCV MCH MCHC RDW Plt Count Lymph % (Auto) [place] % (Auto) Eos % (Auto) Lymph # [place] # Eos # Seg Neutrophils % Seg Neuts % (Manual) Lymphocytes % (Manual) Eosinophils % (Manual) Seg Neutrophils # Lymphocytes # (Manual) Eosinophils # (Manual) PT INR D-Dimer POC ABG pH POC ABG pCO2 POC ABG pO2 ABG pO2 ABG HCO3 ABG Base Excess ABG Hemoglobin Oxyhemoglobin Sodium Potassium Chloride Carbon Dioxide BUN Creatinine Glucose POC Glucose 132 H 154 H 165 H Calcium Phosphorus Magnesium ALT Alkaline Phosphatase Total Creatine Kinase CK-MB (CK-2) Rel Index Troponin T Albumin LDL Cholesterol Direct PTH Intact Salicylates Acetaminophen Crossmatch 04/23/19 04/24/19 04/24/19 16:28 00:28 07:00 WBC RBC Hgb Hct MCV MCH MCHC RDW Plt Count Lymph % (Auto) [place] % (Auto) Eos % (Auto) Lymph # [place] # Eos # Seg Neutrophils % Seg Neuts % (Manual) Lymphocytes % (Manual) Eosinophils % (Manual) Seg Neutrophils # Lymphocytes # (Manual) Eosinophils # (Manual) PT INR D-Dimer POC ABG pH POC ABG pCO2 POC ABG pO2 ABG pO2 ABG HCO3 ABG Base Excess ABG Hemoglobin Oxyhemoglobin Sodium Potassium Chloride Carbon Dioxide BUN Creatinine Glucose POC Glucose 136 H 140 H 141 H Calcium Phosphorus Magnesium ALT Alkaline Phosphatase Total Creatine Kinase CK-MB (CK-2) Rel Index Troponin T Albumin LDL Cholesterol Direct PTH Intact Salicylates Acetaminophen Crossmatch 04/24/19 04/24/19 04/25/19 12:38 18:57 00:38 WBC RBC Hgb Hct MCV MCH MCHC RDW Plt Count Lymph % (Auto) [place] % (Auto) Eos % (Auto) Lymph # [place] # Eos # Seg Neutrophils % Seg Neuts % (Manual) Lymphocytes % (Manual) Eosinophils % (Manual) Seg Neutrophils # Lymphocytes # (Manual) Eosinophils # (Manual) PT INR D-Dimer POC ABG pH POC ABG pCO2 POC ABG pO2 ABG pO2 ABG HCO3 ABG Base Excess ABG Hemoglobin Oxyhemoglobin Sodium Potassium Chloride Carbon Dioxide BUN Creatinine Glucose POC Glucose 152 H 166 H 128 H Calcium Phosphorus Magnesium ALT Alkaline Phosphatase Total Creatine Kinase CK-MB (CK-2) Rel Index Troponin T Albumin LDL Cholesterol Direct PTH Intact Salicylates Acetaminophen Crossmatch 04/25/19 04/25/19 04/25/19 05:44 13:43 18:34 WBC RBC Hgb Hct MCV MCH MCHC RDW Plt Count Lymph % (Auto) [place] % (Auto) Eos % (Auto) Lymph # [place] # Eos # Seg Neutrophils % Seg Neuts % (Manual) Lymphocytes % (Manual) Eosinophils % (Manual) Seg Neutrophils # Lymphocytes # (Manual) Eosinophils # (Manual) PT INR D-Dimer POC ABG pH POC ABG pCO2 POC ABG pO2 ABG pO2 ABG HCO3 ABG Base Excess ABG Hemoglobin Oxyhemoglobin Sodium Potassium Chloride Carbon Dioxide BUN Creatinine Glucose POC Glucose 153 H 186 H 124 H Calcium Phosphorus Magnesium ALT Alkaline Phosphatase Total Creatine Kinase CK-MB (CK-2) Rel Index Troponin T Albumin LDL Cholesterol Direct PTH Intact Salicylates Acetaminophen Crossmatch 04/26/19 04/26/19 04/26/19 00:59 05:52 10:12 WBC 11.5 H RBC 2.84 L Hgb 7.4 L Hct 23.3 L MCV 82 L MCH 26 L MCHC RDW 20.3 H Plt Count Lymph % (Auto) 7.5 L [place] % (Auto) 7.5 H Eos % (Auto) 5.3 H Lymph # 0.9 L [place] # 0.9 H Eos # 0.6 H Seg Neutrophils % 79.2 H Seg Neuts % (Manual) Lymphocytes % (Manual) Eosinophils % (Manual) Seg Neutrophils # 9.1 H Lymphocytes # (Manual) Eosinophils # (Manual) PT INR D-Dimer POC ABG pH POC ABG pCO2 POC ABG pO2 ABG pO2 ABG HCO3 ABG Base Excess ABG Hemoglobin Oxyhemoglobin Sodium Potassium Chloride Carbon Dioxide BUN Creatinine Glucose POC Glucose 163 H 146 H Calcium Phosphorus Magnesium ALT Alkaline Phosphatase Total Creatine Kinase CK-MB (CK-2) Rel Index Troponin T Albumin LDL Cholesterol Direct PTH Intact Salicylates Acetaminophen Crossmatch 04/26/19 04/26/19 04/26/19 10:12 12:15 19:00 WBC RBC Hgb Hct MCV MCH MCHC RDW Plt Count Lymph % (Auto) [place] % (Auto) Eos % (Auto) Lymph # [place] # Eos # Seg Neutrophils % Seg Neuts % (Manual) Lymphocytes % (Manual) Eosinophils % (Manual) Seg Neutrophils # Lymphocytes # (Manual) Eosinophils # (Manual) PT INR D-Dimer POC ABG pH POC ABG pCO2 POC ABG pO2 ABG pO2 ABG HCO3 ABG Base Excess ABG Hemoglobin Oxyhemoglobin Sodium 130 L Potassium Chloride 87.4 L Carbon Dioxide BUN 93 H Creatinine 4.2 H Glucose 140 H POC Glucose 155 H 179 H Calcium Phosphorus Magnesium ALT Alkaline Phosphatase Total Creatine Kinase CK-MB (CK-2) Rel Index Troponin T Albumin LDL Cholesterol Direct PTH Intact Salicylates Acetaminophen Crossmatch 04/27/19 04/27/19 04/27/19 00:23 06:34 17:13 WBC RBC Hgb Hct MCV MCH MCHC RDW Plt Count Lymph % (Auto) [place] % (Auto) Eos % (Auto) Lymph # [place] # Eos # Seg Neutrophils % Seg Neuts % (Manual) Lymphocytes % (Manual) Eosinophils % (Manual) Seg Neutrophils # Lymphocytes # (Manual) Eosinophils # (Manual) PT INR D-Dimer POC ABG pH POC ABG pCO2 POC ABG pO2 ABG pO2 ABG HCO3 ABG Base Excess ABG Hemoglobin Oxyhemoglobin Sodium Potassium Chloride Carbon Dioxide BUN Creatinine Glucose POC Glucose 158 H 140 H 152 H Calcium Phosphorus Magnesium ALT Alkaline Phosphatase Total Creatine Kinase CK-MB (CK-2) Rel Index Troponin T Albumin LDL Cholesterol Direct PTH Intact Salicylates Acetaminophen Crossmatch 04/27/19 04/28/19 04/28/19 23:50 05:18 11:37 WBC RBC Hgb Hct MCV MCH MCHC RDW Plt Count Lymph % (Auto) [place] % (Auto) Eos % (Auto) Lymph # [place] # Eos # Seg Neutrophils % Seg Neuts % (Manual) Lymphocytes % (Manual) Eosinophils % (Manual) Seg Neutrophils # Lymphocytes # (Manual) Eosinophils # (Manual) PT INR D-Dimer POC ABG pH POC ABG pCO2 POC ABG pO2 ABG pO2 ABG HCO3 ABG Base Excess ABG Hemoglobin Oxyhemoglobin Sodium Potassium Chloride Carbon Dioxide BUN Creatinine Glucose POC Glucose 160 H 145 H 177 H Calcium Phosphorus Magnesium ALT Alkaline Phosphatase Total Creatine Kinase CK-MB (CK-2) Rel Index Troponin T Albumin LDL Cholesterol Direct PTH Intact Salicylates Acetaminophen Crossmatch 04/28/19 04/28/19 04/29/19 18:31 23:47 05:50 WBC RBC Hgb Hct MCV MCH MCHC RDW Plt Count Lymph % (Auto) [place] % (Auto) Eos % (Auto) Lymph # [place] # Eos # Seg Neutrophils % Seg Neuts % (Manual) Lymphocytes % (Manual) Eosinophils % (Manual) Seg Neutrophils # Lymphocytes # (Manual) Eosinophils # (Manual) PT INR D-Dimer POC ABG pH POC ABG pCO2 POC ABG pO2 ABG pO2 ABG HCO3 ABG Base Excess ABG Hemoglobin Oxyhemoglobin Sodium Potassium Chloride Carbon Dioxide BUN Creatinine Glucose POC Glucose 153 H 117 H 177 H Calcium Phosphorus Magnesium ALT Alkaline Phosphatase Total Creatine Kinase CK-MB (CK-2) Rel Index Troponin T Albumin LDL Cholesterol Direct PTH Intact Salicylates Acetaminophen Crossmatch 04/29/19 04/30/19 04/30/19 17:04 01:02 06:42 WBC RBC Hgb Hct MCV MCH MCHC RDW Plt Count Lymph % (Auto) [place] % (Auto) Eos % (Auto) Lymph # [place] # Eos # Seg Neutrophils % Seg Neuts % (Manual) Lymphocytes % (Manual) Eosinophils % (Manual) Seg Neutrophils # Lymphocytes # (Manual) Eosinophils # (Manual) PT INR D-Dimer POC ABG pH POC ABG pCO2 POC ABG pO2 ABG pO2 ABG HCO3 ABG Base Excess ABG Hemoglobin Oxyhemoglobin Sodium Potassium Chloride Carbon Dioxide BUN Creatinine Glucose POC Glucose 205 H 143 H 145 H Calcium Phosphorus Magnesium ALT Alkaline Phosphatase Total Creatine Kinase CK-MB (CK-2) Rel Index Troponin T Albumin LDL Cholesterol Direct PTH Intact Salicylates Acetaminophen Crossmatch 04/30/19 04/30/19 04/30/19 11:31 18:12 23:38 WBC RBC Hgb Hct MCV MCH MCHC RDW Plt Count Lymph % (Auto) [place] % (Auto) Eos % (Auto) Lymph # [place] # Eos # Seg Neutrophils % Seg Neuts % (Manual) Lymphocytes % (Manual) Eosinophils % (Manual) Seg Neutrophils # Lymphocytes # (Manual) Eosinophils # (Manual) PT INR D-Dimer POC ABG pH POC ABG pCO2 POC ABG pO2 ABG pO2 ABG HCO3 ABG Base Excess ABG Hemoglobin Oxyhemoglobin Sodium Potassium Chloride Carbon Dioxide BUN Creatinine Glucose POC Glucose 162 H 117 H 139 H Calcium Phosphorus Magnesium ALT Alkaline Phosphatase Total Creatine Kinase CK-MB (CK-2) Rel Index Troponin T Albumin LDL Cholesterol Direct PTH Intact Salicylates Acetaminophen Crossmatch 05/01/19 05/01/19 05/02/19 06:06 23:41 05:59 WBC RBC Hgb Hct MCV MCH MCHC RDW Plt Count Lymph % (Auto) [place] % (Auto) Eos % (Auto) Lymph # [place] # Eos # Seg Neutrophils % Seg Neuts % (Manual) Lymphocytes % (Manual) Eosinophils % (Manual) Seg Neutrophils # Lymphocytes # (Manual) Eosinophils # (Manual) PT INR D-Dimer POC ABG pH POC ABG pCO2 POC ABG pO2 ABG pO2 ABG HCO3 ABG Base Excess ABG Hemoglobin Oxyhemoglobin Sodium Potassium Chloride Carbon Dioxide BUN Creatinine Glucose POC Glucose 150 H 140 H 130 H Calcium Phosphorus Magnesium ALT Alkaline Phosphatase Total Creatine Kinase CK-MB (CK-2) Rel Index Troponin T Albumin LDL Cholesterol Direct PTH Intact Salicylates Acetaminophen Crossmatch 05/02/19 05/02/19 05/03/19 11:55 18:10 00:15 WBC RBC Hgb Hct MCV MCH MCHC RDW Plt Count Lymph % (Auto) [place] % (Auto) Eos % (Auto) Lymph # [place] # Eos # Seg Neutrophils % Seg Neuts % (Manual) Lymphocytes % (Manual) Eosinophils % (Manual) Seg Neutrophils # Lymphocytes # (Manual) Eosinophils # (Manual) PT INR D-Dimer POC ABG pH POC ABG pCO2 POC ABG pO2 ABG pO2 ABG HCO3 ABG Base Excess ABG Hemoglobin Oxyhemoglobin Sodium Potassium Chloride Carbon Dioxide BUN Creatinine Glucose POC Glucose 146 H 141 H 145 H Calcium Phosphorus Magnesium ALT Alkaline Phosphatase Total Creatine Kinase CK-MB (CK-2) Rel Index Troponin T Albumin LDL Cholesterol Direct PTH Intact Salicylates Acetaminophen Crossmatch 05/03/19 05/03/19 05/03/19 05:49 05:49 06:01 WBC RBC 2.84 L Hgb 7.2 L Hct 22.9 L MCV 81 L MCH 26 L MCHC RDW 20.6 H Plt Count 456 H Lymph % (Auto) 11.8 L [place] % (Auto) Eos % (Auto) 10.6 H Lymph # 1.1 L [place] # Eos # 1.0 H Seg Neutrophils % 70.4 H Seg Neuts % (Manual) Lymphocytes % (Manual) Eosinophils % (Manual) Seg Neutrophils # Lymphocytes # (Manual) Eosinophils # (Manual) PT INR D-Dimer POC ABG pH POC ABG pCO2 POC ABG pO2 ABG pO2 ABG HCO3 ABG Base Excess ABG Hemoglobin Oxyhemoglobin Sodium Potassium Chloride 94.8 L Carbon Dioxide BUN 66 H Creatinine 3.6 H Glucose 129 H POC Glucose 135 H Calcium Phosphorus Magnesium ALT Alkaline Phosphatase Total Creatine Kinase CK-MB (CK-2) Rel Index Troponin T Albumin LDL Cholesterol Direct PTH Intact Salicylates Acetaminophen Crossmatch 05/03/19 05/03/19 05/04/19 11:04 18:40 00:06 WBC RBC Hgb Hct MCV MCH MCHC RDW Plt Count Lymph % (Auto) [place] % (Auto) Eos % (Auto) Lymph # [place] # Eos # Seg Neutrophils % Seg Neuts % (Manual) Lymphocytes % (Manual) Eosinophils % (Manual) Seg Neutrophils # Lymphocytes # (Manual) Eosinophils # (Manual) PT INR D-Dimer POC ABG pH POC ABG pCO2 POC ABG pO2 ABG pO2 ABG HCO3 ABG Base Excess ABG Hemoglobin Oxyhemoglobin Sodium Potassium Chloride Carbon Dioxide BUN Creatinine Glucose POC Glucose 191 H 167 H 137 H Calcium Phosphorus Magnesium ALT Alkaline Phosphatase Total Creatine Kinase CK-MB (CK-2) Rel Index Troponin T Albumin LDL Cholesterol Direct PTH Intact Salicylates Acetaminophen Crossmatch 05/04/19 05/04/19 05/04/19 06:44 07:30 07:30 WBC 15.8 H RBC 2.74 L Hgb 6.7 L Hct 22.2 L MCV 81 L MCH 24 L MCHC 30 L RDW 20.4 H Plt Count 450 H Lymph % (Auto) 5.1 L [place] % (Auto) Eos % (Auto) Lymph # 0.8 L [place] # Eos # 0.6 H Seg Neutrophils % 86.3 H Seg Neuts % (Manual) Lymphocytes % (Manual) Eosinophils % (Manual) Seg Neutrophils # 13.6 H Lymphocytes # (Manual) Eosinophils # (Manual) PT INR D-Dimer POC ABG pH POC ABG pCO2 POC ABG pO2 ABG pO2 ABG HCO3 ABG Base Excess ABG Hemoglobin Oxyhemoglobin Sodium Potassium Chloride 95.2 L Carbon Dioxide BUN 92 H Creatinine 4.8 H Glucose 139 H POC Glucose 153 H Calcium Phosphorus Magnesium ALT Alkaline Phosphatase Total Creatine Kinase CK-MB (CK-2) Rel Index Troponin T Albumin LDL Cholesterol Direct PTH Intact Salicylates Acetaminophen Crossmatch 05/04/19 05/04/19 05/05/19 12:55 16:31 01:02 WBC RBC Hgb Hct MCV MCH MCHC RDW Plt Count Lymph % (Auto) [place] % (Auto) Eos % (Auto) Lymph # [place] # Eos # Seg Neutrophils % Seg Neuts % (Manual) Lymphocytes % (Manual) Eosinophils % (Manual) Seg Neutrophils # Lymphocytes # (Manual) Eosinophils # (Manual) PT INR D-Dimer POC ABG pH POC ABG pCO2 POC ABG pO2 ABG pO2 ABG HCO3 ABG Base Excess ABG Hemoglobin Oxyhemoglobin Sodium Potassium Chloride Carbon Dioxide BUN Creatinine Glucose POC Glucose 169 H 171 H Calcium Phosphorus Magnesium ALT Alkaline Phosphatase Total Creatine Kinase CK-MB (CK-2) Rel Index Troponin T Albumin LDL Cholesterol Direct PTH Intact Salicylates Acetaminophen Crossmatch See Detail 05/05/19 05/05/19 05/05/19 05:26 05:36 11:48 WBC 12.6 H RBC 2.73 L Hgb 6.9 L Hct 22.3 L MCV 82 L MCH 25 L MCHC 31 L RDW 21.0 H Plt Count Lymph % (Auto) 8.9 L [place] % (Auto) Eos % (Auto) Lymph # 1.1 L [place] # 0.9 H Eos # Seg Neutrophils % 80.7 H Seg Neuts % (Manual) Lymphocytes % (Manual) Eosinophils % (Manual) Seg Neutrophils # 10.2 H Lymphocytes # (Manual) Eosinophils # (Manual) PT INR D-Dimer POC ABG pH POC ABG pCO2 POC ABG pO2 ABG pO2 ABG HCO3 ABG Base Excess ABG Hemoglobin Oxyhemoglobin Sodium Potassium Chloride Carbon Dioxide BUN Creatinine Glucose POC Glucose 153 H 173 H Calcium Phosphorus Magnesium ALT Alkaline Phosphatase Total Creatine Kinase CK-MB (CK-2) Rel Index Troponin T Albumin LDL Cholesterol Direct PTH Intact Salicylates Acetaminophen Crossmatch 05/05/19 05/06/19 05/06/19 16:42 02:24 06:12 WBC RBC Hgb Hct MCV MCH MCHC RDW Plt Count Lymph % (Auto) [place] % (Auto) Eos % (Auto) Lymph # [place] # Eos # Seg Neutrophils % Seg Neuts % (Manual) Lymphocytes % (Manual) Eosinophils % (Manual) Seg Neutrophils # Lymphocytes # (Manual) Eosinophils # (Manual) PT INR D-Dimer POC ABG pH POC ABG pCO2 POC ABG pO2 ABG pO2 ABG HCO3 ABG Base Excess ABG Hemoglobin Oxyhemoglobin Sodium Potassium Chloride Carbon Dioxide BUN Creatinine Glucose POC Glucose 126 H 138 H 151 H Calcium Phosphorus Magnesium ALT Alkaline Phosphatase Total Creatine Kinase CK-MB (CK-2) Rel Index Troponin T Albumin LDL Cholesterol Direct PTH Intact Salicylates Acetaminophen Crossmatch 05/06/19 08:15 WBC 11.8 H RBC 2.72 L Hgb 6.7 L Hct 21.7 L MCV 80 L MCH 25 L MCHC 31 L RDW 20.9 H Plt Count Lymph % (Auto) [place] % (Auto) Eos % (Auto) Lymph # [place] # Eos # Seg Neutrophils % Seg Neuts % (Manual) Lymphocytes % (Manual) Eosinophils % (Manual) Seg Neutrophils # Lymphocytes # (Manual) Eosinophils # (Manual) PT INR D-Dimer POC ABG pH POC ABG pCO2 POC ABG pO2 ABG pO2 ABG HCO3 ABG Base Excess ABG Hemoglobin Oxyhemoglobin Sodium Potassium Chloride Carbon Dioxide BUN Creatinine Glucose POC Glucose Calcium Phosphorus Magnesium ALT Alkaline Phosphatase Total Creatine Kinase CK-MB (CK-2) Rel Index Troponin T Albumin LDL Cholesterol Direct PTH Intact Salicylates Acetaminophen Crossmatch Chest x-ray: report reviewed, image reviewed
--- NOTE | 2019-05-06 15:20 | Progress Note ---
Assessment and Plan /-Anemia of chronic disease s/p 4 units of prbc , r/o GI loss - ordered stool for occult blood - transfuse another unit today with HD /Acute respiratory failure on mechanical ventilator >96 hrs Likely from pulmonary edema with volume overload from end-stage renal disease and underlying CHF Extubated ; history of tracheostomy on T piece Current management , nebulizers, Currently on trach/peg placed on 03/03. Now off vent, cont oxygen supplement, improving, on t piece, nebulizers, pulmonary critical following /acute on chronic systolic CHF/ Acute pulmonary edema, HD per schedule /Dilated CMP, EF 35-40% Continue diuresis, supportive care /Acute metabolic encephalopathy, resolved, has baseline Dementia. /ESRD on hemodialysis per schedule nephrology following /-Bilateral pleural effusions improved with HD /Permanent atrial fibrillation and flutter and hypercoaguable state Not on anticoagulation because of anemia thrombocytopenia rate control meds optimized /-Diabetes mellitus type 2 Accu-Chek sliding scale coverage Insulin as needed /NSTEMI type 2 , Cardiology following /-Schizophrenia:stable /-Legally blind, supportive care /-hypertension, Monitor BP,'s adjust medications as needed /-Hypokalemia; corrected /-Pulmonary hypertension; continue current management /-Dysphagia s/p PEG tube; PEG tubes per protocol /-Severe malnutrition /hypoalbuminemia with FTT: 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, 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 Brief History: Patient is 63-year-old -[place] male patient from [facility] with multiple co-morbidities including blindness, CVA, CHF, PPM/ICD, loop recorder since 2012 that is MRI compatible, IDDM type 2, sepsis left foot ulcer, afib, ESRD with complications on HD TTS, hypertension, AOCD and GERD who presented to the ED with hypotensive after intubation in the emergency room. diagnosed with fluid overload, pleural effusion. Patient has had recurrent admission in the hospital for similar reason and was recently discharged from the hospital following treatment of Severe Sepsis due to Necrotizing Unstagable sacral decubitus ulcer with ostemomylitis, has received multiple courses of broad spectrum abx. Admitted for Acute hypoxic respiratory failure, status post intubation and ventilatory support, now off vent, on T-piece waiting on placement Hospitalist Physical Patient is on trach and PEG, ON 5L The patient appeared well nourished and normally developed. Vital signs as documented. Head exam is unremarkable. No scleral icterus . Neck is without jugular venous distension, thyromegaly, or carotid bruits. Lungs are clear to auscultation. Cardiac exam reveals regular rate and Rhythm. First and second heart sounds normal. No murmurs, rubs or gallops. Abdominal exam reveals PEG tube in place, colostomy bag in place. Extremities are nonedematous and both femoral and pedal pulses are normal. 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 Subjective Date of service: 05/06/19 Principal diagnosis: Respiratory failure, acute on chronic systolic HF, ESRD Interval history: Patient seen and examined No acute event overnight Patient remained on trach, no family at bedside Discussed with RN and case management about plan of care and discharge planning Objective - Constitutional Vitals: Vital Signs - 12hr 05/06/19 05/06/19 05/06/19 04:17 08:38 08:42 Temperature 97.8 F Pulse Rate 88 Pulse Rate [ 89 Anterior Bilateral Throughout] Respiratory 18 Rate Respiratory 18 Rate [Anterior Bilateral Throughout] Blood Pressure 122/58 O2 Sat by Pulse 84 97 Oximetry O2 Sat by Pulse Oximetry [ Assessment] 05/06/19 05/06/19 05/06/19 09:16 10:31 10:50 Temperature 97.8 F Pulse Rate 64 Pulse Rate [ Anterior Bilateral Throughout] Respiratory 18 Rate Respiratory Rate [Anterior Bilateral Throughout] Blood Pressure 108/59 O2 Sat by Pulse Oximetry O2 Sat by Pulse 99 100 Oximetry [ Assessment] 05/06/19 05/06/19 05/06/19 11:05 11:15 11:30 Temperature Pulse Rate 95 H 95 H 98 H Pulse Rate [ Anterior Bilateral Throughout] Respiratory Rate Respiratory Rate [Anterior Bilateral Throughout] Blood Pressure 110/56 107/57 104/58 O2 Sat by Pulse Oximetry O2 Sat by Pulse Oximetry [ Assessment] 05/06/19 05/06/19 05/06/19 11:45 12:00 12:15 Temperature Pulse Rate 96 H 82 93 H Pulse Rate [ Anterior Bilateral Throughout] Respiratory Rate Respiratory Rate [Anterior Bilateral Throughout] Blood Pressure 96/55 114/57 114/55 O2 Sat by Pulse Oximetry O2 Sat by Pulse Oximetry [ Assessment] 05/06/19 05/06/19 05/06/19 12:30 14:00 15:01 Temperature Pulse Rate 93 H Pulse Rate [ 97 H Anterior Bilateral Throughout] Respiratory Rate Respiratory 18 Rate [Anterior Bilateral Throughout] Blood Pressure 117/33 O2 Sat by Pulse Oximetry O2 Sat by Pulse 95 Oximetry [ Assessment] - Labs CBC & Chem 7: 05/06/19 08:15 05/04/19 07:30 Labs: Abnormal lab results 05/04/19 05/05/19 05/06/19 Range/Units 12:55 16:42 02:24 WBC (4.5-11.0) K/mm3 RBC (3.65-5.03) M/mm3 Hgb (11.8-15.2) gm/dl Hct (35.5-45.6) % MCV (84-94) fl MCH (28-32) pg MCHC (32-34) % RDW (13.2-15.2) % POC Glucose 126 H 138 H (70-105) Crossmatch See Detail 05/06/19 05/06/19 Range/Units 06:12 08:15 WBC 11.8 H (4.5-11.0) K/mm3 RBC 2.72 L (3.65-5.03) M/mm3 Hgb 6.7 L (11.8-15.2) gm/dl Hct 21.7 L (35.5-45.6) % MCV 80 L (84-94) fl MCH 25 L (28-32) pg MCHC 31 L (32-34) % RDW 20.9 H (13.2-15.2) % POC Glucose 151 H (70-105) Crossmatch
[2019-05-06] MEDS ORDERED: SODIUM CHLORIDE*PRIMING MACHINE ONLY FOR DIALYSIS MC ONE (16:12)
[2019-05-06] MEDS: SERTRALINE 100 MG TAB PO SCH (18:15)
[2019-05-06] MEDS: SODIUM HYPOCHLORITE, DAKIN'S 1/2 STRENGTH (0.25%) 473 ML TOPICAL SOLN TP SCH ×2 (18:15→22:59)
[2019-05-06] MEDS: FAMOTIDINE 20 MG TAB PO SCH (18:15)
[2019-05-06] MEDS: risperiDONE 1 MG TAB PO SCH (18:15)
[2019-05-07] MEDS: INSULIN REGULAR, HUMAN 100 UNITS/1 ML SUB-Q SCH ×4 (00:45→21:10)
[2019-05-07 06:35] LABS: Basophils # (Auto) 0.1 K/mm3 (0.0-0.1); Basophils % (Auto) 0.5 % (0.0-1.8); Eosinophils # (Auto) 0.5 K/mm3 (0.0-0.4); Eosinophils % (Auto) 4.8 % (0.0-4.3); Hematocrit 28.6 % (35.5-45.6); Hemoglobin 9.1 gm/dl (11.8-15.2); Lymphocytes # (Auto) 1.1 K/mm3 (1.2-5.4); Lymphocytes % (Auto) 9.6 % (13.4-35.0); Mean Corpuscular HGB Conc 32 % (32-34); Mean Corpuscular Volume 81 fl (84-94); Monocytes # (Auto) 0.8 K/mm3 (0.0-0.8); Monocytes % (Auto) 7.3 % (0.0-7.3); Platelet Count 388 K/mm3 (140-440); Red Blood Count 3.53 M/mm3 (3.65-5.03); Red Cell Distribution Width 19.1 % (13.2-15.2)
[2019-05-07] MEDS: IPRATROPIUM/ALBUTEROL SULFATE 3 ML AMPUL.NEB IH SCH ×3 (08:33→20:43)
[2019-05-07] MEDS: FAMOTIDINE 20 MG TAB PO SCH (10:29)
[2019-05-07] MEDS: SERTRALINE 100 MG TAB PO SCH (10:30)
[2019-05-07] MEDS: SODIUM HYPOCHLORITE, DAKIN'S 1/2 STRENGTH (0.25%) 473 ML TOPICAL SOLN TP SCH ×2 (10:35→21:11)
--- NOTE | 2019-05-07 13:30 | Progress Note ---
Assessment and Plan Imp: 1. Acute encephalopathy, probably metabolic or toxic, resolved 2. A/C systolic CHF 3. Dilated CMP 4. Pulm HTN 5. ESRD 6. RUL atelectasis, probably mucous plugging -> resolved 7. KEON pneumonia, resolved Rec: 1. Chest PT, Duonebs 2. Tolerating Tpiece; monitor; medically I believe his trach should be permanent for airway management but he may require decannulation for placement in a SNF; he is tolerating PMV perfectly at this point; has a 4 cuffless now; will try capping him for 4 hours QAM -> it remains to be seen if he can clear his airway w/ trach capped; cuffed trach is noted to be at the bedside for emergency purposes 3. Avoid sedatives 4. DVT and GI PPx 5. TFs per PEG 6. HD per renal 7. Agree w/ DNR as per family wishes although hospice is the most appropriate course for him Await placement No family present Subjective Date of service: 05/07/19 Principal diagnosis: Respiratory failure, acute on chronic systolic HF, ESRD Interval history: No events. Mentation near usual poor baseline. Does respond to basic questions but cannot give hx. On 28% per Tpiece. On HD. Tolerating PMV well per ST notes. Has 4 cuffless trach now. Active Medications Albuterol/Ipratropium (Duoneb *Not For Prn Use*) 1 ampul IH TIDRT [facility] Last Admin: 05/07/19 08:33 Dose: 1 ampul Documented by: Lipase/Protease/Amylase ([place] 10,500 Unit) 1 each FEEDTUBE PRN PRN PRN Reason: For Clogged Feeding Tube Epoetin Solitario (Procrit) 20,000 unit IV UMA PRN PRN Reason: hemodialysis Last Admin: 05/04/19 13:15 Dose: 20,000 unit Documented by: Famotidine (Pepcid) 20 mg PO DAILY [facility] Last Admin: 05/06/19 18:15 Dose: 20 mg Documented by: Insulin Human Regular (Humulin R) 0 units SUB-Q Q6HR [facility]; Protocol Last Admin: 05/07/19 06:58 Dose: Not Given Documented by: Metoprolol Tartrate (Lopressor) 2.5 mg IV Q4HR PRN PRN Reason: Tachycardia Last Admin: 03/15/19 05:15 Dose: 2.5 mg Documented by: Risperidone (Risperdal) 1 mg PO DAILY [facility] Last Admin: 05/06/19 18:15 Dose: 1 mg Documented by: Sertraline HCl (Zoloft) 100 mg PO DAILY [facility] Last Admin: 05/06/19 18:15 Dose: 100 mg Documented by: Simple Syrup (Simple Syrup) 15 ml FEEDTUBE PRN PRN PRN Reason: Hypoglycemia Simple Syrup (Simple Syrup) 30 ml FEEDTUBE PRN PRN PRN Reason: Hypoglycemia Sodium Bicarbonate (Sodium Bicarbonate) 325 mg FEEDTUBE PRN PRN PRN Reason: For Clogged Feeding Tube Sodium Hypochlorite (Dakin's Half Strength) 1 applic TP BID [facility] Last Admin: 05/06/19 22:59 Dose: 1 applicatio Documented by: Objective Vital Signs - 12hr 05/07/19 05/07/19 05/07/19 03:10 04:02 04:04 Temperature 99.0 F Pulse Rate 97 H Respiratory 18 Rate Blood Pressure 113/65 O2 Sat by Pulse 100 Oximetry O2 Sat by Pulse 100 Oximetry [ Assessment] 05/07/19 05/07/19 08:16 12:03 Temperature 97.8 F Pulse Rate 97 H 98 H Respiratory 20 18 Rate Blood Pressure 126/68 116/65 O2 Sat by Pulse 100 92 Oximetry O2 Sat by Pulse Oximetry [ Assessment] Constitutional: no acute distress, alert Eyes: non-icteric ENT: oropharynx moist Neck: supple Effort: normal Ascultation: Bilateral: other (coarse BS bilaterally) Percussion: Bilateral: not dull Cardiovascular: regular rate and rhythm (no mrg) Gastrointestinal: normoactive bowel sounds, soft, non-tender, non-distended, other (ostomy in place, brown stool) Extremities: no cyanosis, no edema, pink and warm Neurologic: other (mild weakness LUE, o/w nonfocal) Psychiatric: other (unable to assess) CBC and BMP: 05/07/19 06:30 05/04/19 07:30 ABG, PT/INR, D-dimer: ABG POC ABG pH 7.510 (7.35-7.45) H 03/18/19 06:38 ABG pH 7.424 pH Units (7.350-7.450) 03/19/19 04:23 POC ABG pCO2 38.9 (35-45) 03/18/19 06:38 ABG pCO2 48.0 mm Hg 03/19/19 04:23 POC ABG pO2 164 (80-105) H 03/18/19 06:38 ABG pO2 78.3 mm Hg (80.0-90.0) L 03/19/19 04:23 POC ABG HCO3 31.0 (22-26 mml/L) 03/18/19 06:38 POC ABG Total CO2 32 (23-27mmol/L) 03/18/19 06:38 POC ABG O2 Sat 100 03/18/19 06:38 ABG O2 Saturation 97.0 % (95.0-99.0) 03/19/19 04:23 PT/INR, D-dimer PT 16.3 Sec. (12.2-14.9) H 03/01/19 09:39 INR 1.35 (0.87-1.13) H 03/01/19 09:39 D-Dimer 2987.82 ng/mlDDU (0-234) H 02/22/19 05:54 Abnormal lab findings: Abnormal Labs 02/21/19 02/21/19 02/21/19 18:30 18:30 18:30 WBC RBC 3.26 L Hgb 8.8 L Hct 29.0 L MCV MCH 27 L MCHC 30 L RDW 19.1 H Plt Count Lymph % (Auto) 6.1 L Stone % (Auto) Eos % (Auto) Lymph # 0.4 L Stone # Eos # Seg Neutrophils % 86.2 H Seg Neuts % (Manual) Lymphocytes % (Manual) Eosinophils % (Manual) Seg Neutrophils # Lymphocytes # (Manual) Eosinophils # (Manual) PT INR D-Dimer POC ABG pH POC ABG pCO2 POC ABG pO2 ABG pO2 ABG HCO3 ABG Base Excess ABG Hemoglobin Oxyhemoglobin Sodium 133 L Potassium 3.3 L Chloride 93.1 L Carbon Dioxide 33 H BUN Creatinine Glucose 161 H POC Glucose Calcium Phosphorus Magnesium ALT Alkaline Phosphatase 136 H Total Creatine Kinase 37 L CK-MB (CK-2) Rel Index Troponin T 0.192 H* Albumin 2.4 L LDL Cholesterol Direct 36 L PTH Intact Salicylates Acetaminophen Crossmatch 02/21/19 02/21/19 02/21/19 18:42 20:04 20:04 WBC RBC Hgb Hct MCV MCH MCHC RDW Plt Count Lymph % (Auto) Stone % (Auto) Eos % (Auto) Lymph # Stone # Eos # Seg Neutrophils % Seg Neuts % (Manual) Lymphocytes % (Manual) Eosinophils % (Manual) Seg Neutrophils # Lymphocytes # (Manual) Eosinophils # (Manual) PT INR D-Dimer POC ABG pH POC ABG pCO2 56.7 H POC ABG pO2 291 H ABG pO2 ABG HCO3 ABG Base Excess ABG Hemoglobin Oxyhemoglobin Sodium Potassium Chloride Carbon Dioxide BUN Creatinine Glucose POC Glucose Calcium Phosphorus Magnesium ALT Alkaline Phosphatase Total Creatine Kinase CK-MB (CK-2) Rel Index Troponin T Albumin LDL Cholesterol Direct PTH Intact Salicylates < 0.3 L Acetaminophen < 5.0 L Crossmatch 02/21/19 02/22/19 02/22/19 22:35 03:42 03:42 WBC RBC 3.20 L Hgb 8.8 L Hct 27.6 L MCV MCH MCHC RDW 18.9 H Plt Count Lymph % (Auto) 7.4 L Stone % (Auto) Eos % (Auto) Lymph # 0.7 L Stone # Eos # Seg Neutrophils % 84.7 H Seg Neuts % (Manual) Lymphocytes % (Manual) Eosinophils % (Manual) Seg Neutrophils # Lymphocytes # (Manual) Eosinophils # (Manual) PT INR D-Dimer POC ABG pH POC ABG pCO2 POC ABG pO2 ABG pO2 ABG HCO3 ABG Base Excess ABG Hemoglobin Oxyhemoglobin Sodium 134 L Potassium 2.6 L* D Chloride Carbon Dioxide BUN Creatinine Glucose POC Glucose Calcium Phosphorus Magnesium ALT Alkaline Phosphatase Total Creatine Kinase CK-MB (CK-2) Rel Index 5.2 H Troponin T 0.202 H* Albumin LDL Cholesterol Direct PTH Intact Salicylates Acetaminophen Crossmatch 02/22/19 02/22/19 02/22/19 03:42 05:54 09:04 WBC RBC Hgb Hct MCV MCH MCHC RDW Plt Count Lymph % (Auto) Stone % (Auto) Eos % (Auto) Lymph # Stone # Eos # Seg Neutrophils % Seg Neuts % (Manual) Lymphocytes % (Manual) Eosinophils % (Manual) Seg Neutrophils # Lymphocytes # (Manual) Eosinophils # (Manual) PT INR D-Dimer 2987.82 H POC ABG pH 7.451 H POC ABG pCO2 POC ABG pO2 ABG pO2 ABG HCO3 ABG Base Excess ABG Hemoglobin Oxyhemoglobin Sodium Potassium Chloride Carbon Dioxide BUN Creatinine Glucose POC Glucose Calcium Phosphorus Magnesium ALT Alkaline Phosphatase Total Creatine Kinase CK-MB (CK-2) Rel Index 5.7 H Troponin T 0.193 H* Albumin LDL Cholesterol Direct PTH Intact Salicylates Acetaminophen Crossmatch 02/22/19 02/22/19 02/23/19 10:36 23:56 00:52 WBC RBC Hgb Hct MCV MCH MCHC RDW Plt Count Lymph % (Auto) Stone % (Auto) Eos % (Auto) Lymph # Stone # Eos # Seg Neutrophils % Seg Neuts % (Manual) Lymphocytes % (Manual) Eosinophils % (Manual) Seg Neutrophils # Lymphocytes # (Manual) Eosinophils # (Manual) PT INR D-Dimer POC ABG pH POC ABG pCO2 POC ABG pO2 ABG pO2 ABG HCO3 ABG Base Excess ABG Hemoglobin Oxyhemoglobin Sodium Potassium 3.1 L Chloride Carbon Dioxide BUN Creatinine Glucose POC Glucose 58 L 111 H Calcium Phosphorus Magnesium ALT Alkaline Phosphatase Total Creatine Kinase CK-MB (CK-2) Rel Index Troponin T Albumin LDL Cholesterol Direct PTH Intact Salicylates Acetaminophen Crossmatch 02/23/19 02/23/19 02/23/19 05:00 06:35 14:26 WBC RBC Hgb Hct MCV MCH MCHC RDW Plt Count Lymph % (Auto) Stone % (Auto) Eos % (Auto) Lymph # Stone # Eos # Seg Neutrophils % Seg Neuts % (Manual) Lymphocytes % (Manual) Eosinophils % (Manual) Seg Neutrophils # Lymphocytes # (Manual) Eosinophils # (Manual) PT INR D-Dimer POC ABG pH POC ABG pCO2 POC ABG pO2 ABG pO2 ABG HCO3 ABG Base Excess ABG Hemoglobin Oxyhemoglobin Sodium 135 L Potassium 3.1 L Chloride Carbon Dioxide BUN 21 H Creatinine 2.0 H Glucose 57 L POC Glucose 64 L 62 L Calcium Phosphorus Magnesium ALT Alkaline Phosphatase Total Creatine Kinase CK-MB (CK-2) Rel Index Troponin T Albumin LDL Cholesterol Direct PTH Intact Salicylates Acetaminophen Crossmatch 02/24/19 02/24/19 02/24/19 02:11 04:12 04:55 WBC RBC 2.84 L Hgb 7.8 L Hct 24.5 L MCV MCH MCHC RDW 19.5 H Plt Count Lymph % (Auto) Stone % (Auto) Eos % (Auto) Lymph # Stone # Eos # Seg Neutrophils % Seg Neuts % (Manual) Lymphocytes % (Manual) Eosinophils % (Manual) Seg Neutrophils # Lymphocytes # (Manual) Eosinophils # (Manual) PT INR D-Dimer POC ABG pH 7.511 H POC ABG pCO2 33.9 L POC ABG pO2 62 L ABG pO2 ABG HCO3 ABG Base Excess ABG Hemoglobin Oxyhemoglobin Sodium Potassium Chloride Carbon Dioxide BUN Creatinine Glucose POC Glucose 69 L Calcium Phosphorus Magnesium ALT Alkaline Phosphatase Total Creatine Kinase CK-MB (CK-2) Rel Index Troponin T Albumin LDL Cholesterol Direct PTH Intact Salicylates Acetaminophen Crossmatch 02/24/19 02/24/19 02/25/19 04:55 05:41 04:45 WBC RBC Hgb Hct MCV MCH MCHC RDW Plt Count Lymph % (Auto) Stone % (Auto) Eos % (Auto) Lymph # Stone # Eos # Seg Neutrophils % Seg Neuts % (Manual) Lymphocytes % (Manual) Eosinophils % (Manual) Seg Neutrophils # Lymphocytes # (Manual) Eosinophils # (Manual) PT INR D-Dimer POC ABG pH 7.466 H POC ABG pCO2 POC ABG pO2 75 L ABG pO2 ABG HCO3 ABG Base Excess ABG Hemoglobin Oxyhemoglobin Sodium Potassium Chloride Carbon Dioxide BUN Creatinine 1.8 H Glucose 73 L POC Glucose 127 H Calcium Phosphorus Magnesium ALT Alkaline Phosphatase Total Creatine Kinase CK-MB (CK-2) Rel Index Troponin T Albumin LDL Cholesterol Direct PTH Intact Salicylates Acetaminophen Crossmatch 02/25/19 02/25/19 02/26/19 16:34 21:33 03:45 WBC RBC 2.96 L Hgb 8.0 L Hct 25.8 L MCV MCH 27 L MCHC 31 L RDW 20.0 H Plt Count Lymph % (Auto) Stone % (Auto) Eos % (Auto) Lymph # Stone # Eos # Seg Neutrophils % Seg Neuts % (Manual) Lymphocytes % (Manual) Eosinophils % (Manual) Seg Neutrophils # Lymphocytes # (Manual) Eosinophils # (Manual) PT INR D-Dimer POC ABG pH POC ABG pCO2 POC ABG pO2 ABG pO2 ABG HCO3 ABG Base Excess ABG Hemoglobin Oxyhemoglobin Sodium Potassium Chloride Carbon Dioxide BUN Creatinine Glucose POC Glucose 141 H 106 H Calcium Phosphorus Magnesium ALT Alkaline Phosphatase Total Creatine Kinase CK-MB (CK-2) Rel Index Troponin T Albumin LDL Cholesterol Direct PTH Intact Salicylates Acetaminophen Crossmatch 02/26/19 02/26/19 02/26/19 03:45 04:13 07:53 WBC RBC Hgb Hct MCV MCH MCHC RDW Plt Count Lymph % (Auto) Stone % (Auto) Eos % (Auto) Lymph # Stone # Eos # Seg Neutrophils % Seg Neuts % (Manual) Lymphocytes % (Manual) Eosinophils % (Manual) Seg Neutrophils # Lymphocytes # (Manual) Eosinophils # (Manual) PT INR D-Dimer POC ABG pH 7.470 H POC ABG pCO2 POC ABG pO2 ABG pO2 ABG HCO3 ABG Base Excess ABG Hemoglobin Oxyhemoglobin Sodium Potassium Chloride Carbon Dioxide BUN Creatinine 1.8 H Glucose POC Glucose 110 H Calcium Phosphorus Magnesium ALT Alkaline Phosphatase Total Creatine Kinase CK-MB (CK-2) Rel Index Troponin T Albumin LDL Cholesterol Direct PTH Intact Salicylates Acetaminophen Crossmatch 02/26/19 02/26/19 02/27/19 11:56 17:43 00:12 WBC RBC Hgb Hct MCV MCH MCHC RDW Plt Count Lymph % (Auto) Stone % (Auto) Eos % (Auto) Lymph # Stone # Eos # Seg Neutrophils % Seg Neuts % (Manual) Lymphocytes % (Manual) Eosinophils % (Manual) Seg Neutrophils # Lymphocytes # (Manual) Eosinophils # (Manual) PT INR D-Dimer POC ABG pH POC ABG pCO2 POC ABG pO2 ABG pO2 ABG HCO3 ABG Base Excess ABG Hemoglobin Oxyhemoglobin Sodium Potassium Chloride Carbon Dioxide BUN Creatinine Glucose POC Glucose 112 H 127 H 127 H Calcium Phosphorus Magnesium ALT Alkaline Phosphatase Total Creatine Kinase CK-MB (CK-2) Rel Index Troponin T Albumin LDL Cholesterol Direct PTH Intact Salicylates Acetaminophen Crossmatch 02/27/19 02/27/19 02/27/19 04:35 13:15 18:02 WBC RBC Hgb Hct MCV MCH MCHC RDW Plt Count Lymph % (Auto) Stone % (Auto) Eos % (Auto) Lymph # Stone # Eos # Seg Neutrophils % Seg Neuts % (Manual) Lymphocytes % (Manual) Eosinophils % (Manual) Seg Neutrophils # Lymphocytes # (Manual) Eosinophils # (Manual) PT INR D-Dimer POC ABG pH 7.483 H POC ABG pCO2 POC ABG pO2 61 L ABG pO2 ABG HCO3 ABG Base Excess ABG Hemoglobin Oxyhemoglobin Sodium Potassium Chloride Carbon Dioxide BUN Creatinine Glucose POC Glucose 143 H 106 H Calcium Phosphorus Magnesium ALT Alkaline Phosphatase Total Creatine Kinase CK-MB (CK-2) Rel Index Troponin T Albumin LDL Cholesterol Direct PTH Intact Salicylates Acetaminophen Crossmatch 02/28/19 02/28/19 02/28/19 05:50 11:59 17:52 WBC RBC Hgb Hct MCV MCH MCHC RDW Plt Count Lymph % (Auto) Stone % (Auto) Eos % (Auto) Lymph # Stone # Eos # Seg Neutrophils % Seg Neuts % (Manual) Lymphocytes % (Manual) Eosinophils % (Manual) Seg Neutrophils # Lymphocytes # (Manual) Eosinophils # (Manual) PT INR D-Dimer POC ABG pH POC ABG pCO2 POC ABG pO2 ABG pO2 ABG HCO3 ABG Base Excess ABG Hemoglobin Oxyhemoglobin Sodium Potassium Chloride Carbon Dioxide BUN Creatinine Glucose POC Glucose 134 H 128 H 142 H Calcium Phosphorus Magnesium ALT Alkaline Phosphatase Total Creatine Kinase CK-MB (CK-2) Rel Index Troponin T Albumin LDL Cholesterol Direct PTH Intact Salicylates Acetaminophen Crossmatch 02/28/19 03/01/19 03/01/19 23:13 05:40 09:39 WBC RBC Hgb Hct MCV MCH MCHC RDW Plt Count Lymph % (Auto) Stone % (Auto) Eos % (Auto) Lymph # Stone # Eos # Seg Neutrophils % Seg Neuts % (Manual) Lymphocytes % (Manual) Eosinophils % (Manual) Seg Neutrophils # Lymphocytes # (Manual) Eosinophils # (Manual) PT 16.3 H INR 1.35 H D-Dimer POC ABG pH POC ABG pCO2 POC ABG pO2 ABG pO2 ABG HCO3 ABG Base Excess ABG Hemoglobin Oxyhemoglobin Sodium Potassium Chloride Carbon Dioxide BUN Creatinine Glucose POC Glucose 112 H 111 H Calcium Phosphorus Magnesium ALT Alkaline Phosphatase Total Creatine Kinase CK-MB (CK-2) Rel Index Troponin T Albumin LDL Cholesterol Direct PTH Intact Salicylates Acetaminophen Crossmatch 03/01/19 03/01/19 03/01/19 11:56 13:54 17:59 WBC RBC Hgb Hct MCV MCH MCHC RDW Plt Count Lymph % (Auto) Stone % (Auto) Eos % (Auto) Lymph # Stone # Eos # Seg Neutrophils % Seg Neuts % (Manual) Lymphocytes % (Manual) Eosinophils % (Manual) Seg Neutrophils # Lymphocytes # (Manual) Eosinophils # (Manual) PT INR D-Dimer POC ABG pH POC ABG pCO2 POC ABG pO2 ABG pO2 ABG HCO3 ABG Base Excess ABG Hemoglobin Oxyhemoglobin Sodium Potassium Chloride Carbon Dioxide BUN 33 H Creatinine 2.8 H D Glucose 176 H POC Glucose 199 H 147 H Calcium Phosphorus Magnesium ALT Alkaline Phosphatase Total Creatine Kinase CK-MB (CK-2) Rel Index Troponin T Albumin LDL Cholesterol Direct PTH Intact Salicylates Acetaminophen Crossmatch 03/02/19 03/02/19 03/02/19 05:15 05:15 05:15 WBC RBC 2.73 L Hgb 7.4 L Hct 23.0 L MCV MCH 27 L MCHC RDW 19.9 H Plt Count Lymph % (Auto) Stone % (Auto) 7.9 H Eos % (Auto) 7.6 H Lymph # 1.0 L Stone # Eos # 0.5 H Seg Neutrophils % Seg Neuts % (Manual) Lymphocytes % (Manual) Eosinophils % (Manual) Seg Neutrophils # Lymphocytes # (Manual) Eosinophils # (Manual) PT INR D-Dimer POC ABG pH POC ABG pCO2 POC ABG pO2 ABG pO2 ABG HCO3 ABG Base Excess ABG Hemoglobin Oxyhemoglobin Sodium Potassium Chloride Carbon Dioxide BUN 43 H Creatinine 3.2 H Glucose POC Glucose Calcium Phosphorus 2.30 L Magnesium ALT Alkaline Phosphatase Total Creatine Kinase CK-MB (CK-2) Rel Index Troponin T Albumin LDL Cholesterol Direct PTH Intact 267.6 H Salicylates Acetaminophen Crossmatch 03/02/19 03/02/19 03/03/19 12:32 18:20 13:30 WBC RBC Hgb Hct MCV MCH MCHC RDW Plt Count Lymph % (Auto) Stone % (Auto) Eos % (Auto) Lymph # Stone # Eos # Seg Neutrophils % Seg Neuts % (Manual) Lymphocytes % (Manual) Eosinophils % (Manual) Seg Neutrophils # Lymphocytes # (Manual) Eosinophils # (Manual) PT INR D-Dimer POC ABG pH POC ABG pCO2 POC ABG pO2 ABG pO2 ABG HCO3 ABG Base Excess ABG Hemoglobin Oxyhemoglobin Sodium Potassium Chloride 97.3 L Carbon Dioxide BUN 26 H Creatinine 2.2 H Glucose 73 L POC Glucose 111 H 156 H Calcium Phosphorus Magnesium ALT Alkaline Phosphatase Total Creatine Kinase CK-MB (CK-2) Rel Index Troponin T Albumin LDL Cholesterol Direct PTH Intact Salicylates Acetaminophen Crossmatch 03/04/19 03/04/19 03/04/19 00:02 05:37 05:40 WBC RBC 2.63 L Hgb 7.2 L Hct 22.2 L MCV MCH MCHC RDW 20.2 H Plt Count Lymph % (Auto) 10.5 L Stone % (Auto) Eos % (Auto) 4.6 H Lymph # 0.7 L Stone # Eos # Seg Neutrophils % 76.9 H Seg Neuts % (Manual) Lymphocytes % (Manual) Eosinophils % (Manual) Seg Neutrophils # Lymphocytes # (Manual) Eosinophils # (Manual) PT INR D-Dimer POC ABG pH POC ABG pCO2 POC ABG pO2 ABG pO2 ABG HCO3 ABG Base Excess ABG Hemoglobin Oxyhemoglobin Sodium Potassium Chloride Carbon Dioxide BUN Creatinine Glucose POC Glucose 136 H 123 H Calcium Phosphorus Magnesium ALT Alkaline Phosphatase Total Creatine Kinase CK-MB (CK-2) Rel Index Troponin T Albumin LDL Cholesterol Direct PTH Intact Salicylates Acetaminophen Crossmatch 03/04/19 03/04/19 03/04/19 05:40 11:39 23:20 WBC RBC Hgb Hct MCV MCH MCHC RDW Plt Count Lymph % (Auto) Stone % (Auto) Eos % (Auto) Lymph # Stone # Eos # Seg Neutrophils % Seg Neuts % (Manual) Lymphocytes % (Manual) Eosinophils % (Manual) Seg Neutrophils # Lymphocytes # (Manual) Eosinophils # (Manual) PT INR D-Dimer POC ABG pH POC ABG pCO2 POC ABG pO2 ABG pO2 ABG HCO3 ABG Base Excess ABG Hemoglobin Oxyhemoglobin Sodium Potassium Chloride Carbon Dioxide BUN 34 H Creatinine 2.7 H Glucose 114 H POC Glucose 175 H 151 H Calcium Phosphorus Magnesium ALT Alkaline Phosphatase Total Creatine Kinase CK-MB (CK-2) Rel Index Troponin T Albumin LDL Cholesterol Direct PTH Intact Salicylates Acetaminophen Crossmatch 03/05/19 03/05/19 03/05/19 05:37 12:08 17:11 WBC RBC Hgb Hct MCV MCH MCHC RDW Plt Count Lymph % (Auto) Stone % (Auto) Eos % (Auto) Lymph # Stone # Eos # Seg Neutrophils % Seg Neuts % (Manual) Lymphocytes % (Manual) Eosinophils % (Manual) Seg Neutrophils # Lymphocytes # (Manual) Eosinophils # (Manual) PT INR D-Dimer POC ABG pH POC ABG pCO2 POC ABG pO2 ABG pO2 ABG HCO3 ABG Base Excess ABG Hemoglobin Oxyhemoglobin Sodium Potassium Chloride Carbon Dioxide BUN Creatinine Glucose POC Glucose 134 H 135 H 135 H Calcium Phosphorus Magnesium ALT Alkaline Phosphatase Total Creatine Kinase CK-MB (CK-2) Rel Index Troponin T Albumin LDL Cholesterol Direct PTH Intact Salicylates Acetaminophen Crossmatch 03/06/19 03/06/19 03/06/19 00:16 13:05 18:09 WBC RBC Hgb Hct MCV MCH MCHC RDW Plt Count Lymph % (Auto) Stone % (Auto) Eos % (Auto) Lymph # Stone # Eos # Seg Neutrophils % Seg Neuts % (Manual) Lymphocytes % (Manual) Eosinophils % (Manual) Seg Neutrophils # Lymphocytes # (Manual) Eosinophils # (Manual) PT INR D-Dimer POC ABG pH POC ABG pCO2 POC ABG pO2 ABG pO2 ABG HCO3 ABG Base Excess ABG Hemoglobin Oxyhemoglobin Sodium Potassium Chloride Carbon Dioxide BUN Creatinine Glucose POC Glucose 117 H 113 H 131 H Calcium Phosphorus Magnesium ALT Alkaline Phosphatase Total Creatine Kinase CK-MB (CK-2) Rel Index Troponin T Albumin LDL Cholesterol Direct PTH Intact Salicylates Acetaminophen Crossmatch 03/07/19 03/08/19 03/08/19 05:25 05:33 16:00 WBC RBC 2.44 L Hgb 6.6 L Hct 20.8 L MCV MCH 27 L MCHC RDW 19.2 H Plt Count Lymph % (Auto) Stone % (Auto) Eos % (Auto) 8.6 H Lymph # 0.8 L Stone # Eos # 0.5 H Seg Neutrophils % 70.7 H Seg Neuts % (Manual) Lymphocytes % (Manual) Eosinophils % (Manual) Seg Neutrophils # Lymphocytes # (Manual) Eosinophils # (Manual) PT INR D-Dimer POC ABG pH POC ABG pCO2 POC ABG pO2 ABG pO2 ABG HCO3 ABG Base Excess ABG Hemoglobin Oxyhemoglobin Sodium Potassium Chloride Carbon Dioxide BUN Creatinine Glucose POC Glucose 106 H 108 H Calcium Phosphorus Magnesium ALT Alkaline Phosphatase Total Creatine Kinase CK-MB (CK-2) Rel Index Troponin T Albumin LDL Cholesterol Direct PTH Intact Salicylates Acetaminophen Crossmatch 03/08/19 03/08/19 03/08/19 16:00 18:38 Unknown WBC RBC Hgb Hct MCV MCH MCHC RDW Plt Count Lymph % (Auto) Stone % (Auto) Eos % (Auto) Lymph # Stone # Eos # Seg Neutrophils % Seg Neuts % (Manual) Lymphocytes % (Manual) Eosinophils % (Manual) Seg Neutrophils # Lymphocytes # (Manual) Eosinophils # (Manual) PT INR D-Dimer POC ABG pH POC ABG pCO2 POC ABG pO2 ABG pO2 ABG HCO3 ABG Base Excess ABG Hemoglobin Oxyhemoglobin Sodium Potassium 5.4 H D Chloride Carbon Dioxide BUN 47 H Creatinine 2.6 H Glucose POC Glucose 123 H Calcium Phosphorus Magnesium ALT < 5 L Alkaline Phosphatase Total Creatine Kinase CK-MB (CK-2) Rel Index Troponin T Albumin 2.2 L LDL Cholesterol Direct PTH Intact Salicylates Acetaminophen Crossmatch See Detail 03/09/19 03/09/19 03/09/19 10:48 12:28 13:53 WBC RBC 2.85 L Hgb 7.7 L Hct 24.2 L MCV MCH 27 L MCHC RDW 18.7 H Plt Count Lymph % (Auto) Stone % (Auto) Eos % (Auto) Lymph # Stone # Eos # Seg Neutrophils % Seg Neuts % (Manual) Lymphocytes % (Manual) Eosinophils % (Manual) Seg Neutrophils # Lymphocytes # (Manual) Eosinophils # (Manual) PT INR D-Dimer POC ABG pH POC ABG pCO2 POC ABG pO2 ABG pO2 ABG HCO3 30.5 H ABG Base Excess 5.6 H ABG Hemoglobin 8.1 L Oxyhemoglobin 93.8 L Sodium Potassium Chloride Carbon Dioxide BUN Creatinine Glucose POC Glucose 114 H Calcium Phosphorus Magnesium ALT Alkaline Phosphatase Total Creatine Kinase CK-MB (CK-2) Rel Index Troponin T Albumin LDL Cholesterol Direct PTH Intact Salicylates Acetaminophen Crossmatch 03/09/19 03/09/19 03/10/19 17:58 23:53 12:01 WBC RBC Hgb Hct MCV MCH MCHC RDW Plt Count Lymph % (Auto) Stone % (Auto) Eos % (Auto) Lymph # Stone # Eos # Seg Neutrophils % Seg Neuts % (Manual) Lymphocytes % (Manual) Eosinophils % (Manual) Seg Neutrophils # Lymphocytes # (Manual) Eosinophils # (Manual) PT INR D-Dimer POC ABG pH POC ABG pCO2 POC ABG pO2 ABG pO2 ABG HCO3 ABG Base Excess ABG Hemoglobin Oxyhemoglobin Sodium Potassium Chloride Carbon Dioxide BUN Creatinine Glucose POC Glucose 108 H 128 H 144 H Calcium Phosphorus Magnesium ALT Alkaline Phosphatase Total Creatine Kinase CK-MB (CK-2) Rel Index Troponin T Albumin LDL Cholesterol Direct PTH Intact Salicylates Acetaminophen Crossmatch 03/10/19 03/11/19 03/11/19 16:50 00:24 05:02 WBC RBC Hgb Hct MCV MCH MCHC RDW Plt Count Lymph % (Auto) Stone % (Auto) Eos % (Auto) Lymph # Stone # Eos # Seg Neutrophils % Seg Neuts % (Manual) Lymphocytes % (Manual) Eosinophils % (Manual) Seg Neutrophils # Lymphocytes # (Manual) Eosinophils # (Manual) PT INR D-Dimer POC ABG pH POC ABG pCO2 POC ABG pO2 ABG pO2 ABG HCO3 ABG Base Excess ABG Hemoglobin Oxyhemoglobin Sodium Potassium Chloride Carbon Dioxide BUN Creatinine Glucose POC Glucose 147 H 123 H 120 H Calcium Phosphorus Magnesium ALT Alkaline Phosphatase Total Creatine Kinase CK-MB (CK-2) Rel Index Troponin T Albumin LDL Cholesterol Direct PTH Intact Salicylates Acetaminophen Crossmatch 03/11/19 03/11/19 03/11/19 11:56 12:20 18:37 WBC RBC Hgb Hct MCV MCH MCHC RDW Plt Count Lymph % (Auto) Stone % (Auto) Eos % (Auto) Lymph # Stone # Eos # Seg Neutrophils % Seg Neuts % (Manual) Lymphocytes % (Manual) Eosinophils % (Manual) Seg Neutrophils # Lymphocytes # (Manual) Eosinophils # (Manual) PT INR D-Dimer POC ABG pH POC ABG pCO2 POC ABG pO2 ABG pO2 ABG HCO3 ABG Base Excess ABG Hemoglobin Oxyhemoglobin Sodium Potassium 5.2 H Chloride Carbon Dioxide BUN Creatinine Glucose POC Glucose 123 H 125 H Calcium Phosphorus Magnesium ALT Alkaline Phosphatase Total Creatine Kinase CK-MB (CK-2) Rel Index Troponin T Albumin LDL Cholesterol Direct PTH Intact Salicylates Acetaminophen Crossmatch 03/11/19 03/12/19 03/12/19 22:52 12:04 18:25 WBC RBC Hgb Hct MCV MCH MCHC RDW Plt Count Lymph % (Auto) Stone % (Auto) Eos % (Auto) Lymph # Stone # Eos # Seg Neutrophils % Seg Neuts % (Manual) Lymphocytes % (Manual) Eosinophils % (Manual) Seg Neutrophils # Lymphocytes # (Manual) Eosinophils # (Manual) PT INR D-Dimer POC ABG pH POC ABG pCO2 POC ABG pO2 ABG pO2 ABG HCO3 ABG Base Excess ABG Hemoglobin Oxyhemoglobin Sodium Potassium Chloride Carbon Dioxide BUN Creatinine Glucose POC Glucose 110 H 106 H 118 H Calcium Phosphorus Magnesium ALT Alkaline Phosphatase Total Creatine Kinase CK-MB (CK-2) Rel Index Troponin T Albumin LDL Cholesterol Direct PTH Intact Salicylates Acetaminophen Crossmatch 03/12/19 03/13/19 03/13/19 23:36 04:38 04:38 WBC RBC 2.95 L Hgb 7.9 L Hct 24.9 L MCV MCH 27 L MCHC RDW 19.9 H Plt Count Lymph % (Auto) 11.1 L Stone % (Auto) 8.1 H Eos % (Auto) 4.4 H Lymph # 0.9 L Stone # Eos # Seg Neutrophils % 75.4 H Seg Neuts % (Manual) Lymphocytes % (Manual) Eosinophils % (Manual) Seg Neutrophils # Lymphocytes # (Manual) Eosinophils # (Manual) PT INR D-Dimer POC ABG pH POC ABG pCO2 POC ABG pO2 ABG pO2 ABG HCO3 ABG Base Excess ABG Hemoglobin Oxyhemoglobin Sodium 136 L Potassium 5.1 H Chloride 93.8 L Carbon Dioxide BUN 48 H Creatinine 2.7 H Glucose 102 H POC Glucose 115 H Calcium Phosphorus Magnesium ALT < 5 L Alkaline Phosphatase 143 H Total Creatine Kinase CK-MB (CK-2) Rel Index Troponin T Albumin 2.5 L LDL Cholesterol Direct PTH Intact Salicylates Acetaminophen Crossmatch 03/13/19 03/13/19 03/13/19 05:33 13:37 18:03 WBC RBC Hgb Hct MCV MCH MCHC RDW Plt Count Lymph % (Auto) Stone % (Auto) Eos % (Auto) Lymph # Stone # Eos # Seg Neutrophils % Seg Neuts % (Manual) Lymphocytes % (Manual) Eosinophils % (Manual) Seg Neutrophils # Lymphocytes # (Manual) Eosinophils # (Manual) PT INR D-Dimer POC ABG pH POC ABG pCO2 POC ABG pO2 ABG pO2 ABG HCO3 ABG Base Excess ABG Hemoglobin Oxyhemoglobin Sodium Potassium Chloride Carbon Dioxide BUN Creatinine Glucose POC Glucose 140 H 150 H 158 H Calcium Phosphorus Magnesium ALT Alkaline Phosphatase Total Creatine Kinase CK-MB (CK-2) Rel Index Troponin T Albumin LDL Cholesterol Direct PTH Intact Salicylates Acetaminophen Crossmatch 03/13/19 03/14/19 03/14/19 23:32 05:24 12:20 WBC RBC Hgb Hct MCV MCH MCHC RDW Plt Count Lymph % (Auto) Stone % (Auto) Eos % (Auto) Lymph # Stone # Eos # Seg Neutrophils % Seg Neuts % (Manual) Lymphocytes % (Manual) Eosinophils % (Manual) Seg Neutrophils # Lymphocytes # (Manual) Eosinophils # (Manual) PT INR D-Dimer POC ABG pH POC ABG pCO2 POC ABG pO2 ABG pO2 ABG HCO3 ABG Base Excess ABG Hemoglobin Oxyhemoglobin Sodium Potassium Chloride Carbon Dioxide BUN Creatinine Glucose POC Glucose 162 H 146 H 127 H Calcium Phosphorus Magnesium ALT Alkaline Phosphatase Total Creatine Kinase CK-MB (CK-2) Rel Index Troponin T Albumin LDL Cholesterol Direct PTH Intact Salicylates Acetaminophen Crossmatch 03/14/19 03/14/19 03/15/19 18:05 23:57 04:38 WBC 12.8 H RBC 3.11 L Hgb 8.1 L Hct 26.5 L MCV MCH 26 L MCHC 31 L RDW 19.7 H Plt Count Lymph % (Auto) 4.4 L Stone % (Auto) 7.4 H Eos % (Auto) Lymph # 0.6 L Stone # 0.9 H Eos # Seg Neutrophils % 87.3 H Seg Neuts % (Manual) Lymphocytes % (Manual) Eosinophils % (Manual) Seg Neutrophils # 11.2 H Lymphocytes # (Manual) Eosinophils # (Manual) PT INR D-Dimer POC ABG pH POC ABG pCO2 POC ABG pO2 ABG pO2 ABG HCO3 ABG Base Excess ABG Hemoglobin Oxyhemoglobin Sodium Potassium Chloride Carbon Dioxide BUN Creatinine Glucose POC Glucose 142 H 155 H Calcium Phosphorus Magnesium ALT Alkaline Phosphatase Total Creatine Kinase CK-MB (CK-2) Rel Index Troponin T Albumin LDL Cholesterol Direct PTH Intact Salicylates Acetaminophen Crossmatch 03/15/19 03/15/19 03/15/19 04:38 05:31 11:32 WBC RBC Hgb Hct MCV MCH MCHC RDW Plt Count Lymph % (Auto) Stone % (Auto) Eos % (Auto) Lymph # Stone # Eos # Seg Neutrophils % Seg Neuts % (Manual) Lymphocytes % (Manual) Eosinophils % (Manual) Seg Neutrophils # Lymphocytes # (Manual) Eosinophils # (Manual) PT INR D-Dimer POC ABG pH POC ABG pCO2 POC ABG pO2 ABG pO2 ABG HCO3 ABG Base Excess ABG Hemoglobin Oxyhemoglobin Sodium 135 L Potassium Chloride 91.9 L Carbon Dioxide BUN 54 H Creatinine 2.8 H Glucose 128 H POC Glucose 160 H 109 H Calcium 11.1 H Phosphorus Magnesium ALT Alkaline Phosphatase 161 H Total Creatine Kinase CK-MB (CK-2) Rel Index Troponin T Albumin 2.3 L LDL Cholesterol Direct PTH Intact Salicylates Acetaminophen Crossmatch 03/15/19 03/15/19 03/16/19 18:15 23:41 05:40 WBC RBC Hgb Hct MCV MCH MCHC RDW Plt Count Lymph % (Auto) Stone % (Auto) Eos % (Auto) Lymph # Stone # Eos # Seg Neutrophils % Seg Neuts % (Manual) Lymphocytes % (Manual) Eosinophils % (Manual) Seg Neutrophils # Lymphocytes # (Manual) Eosinophils # (Manual) PT INR D-Dimer POC ABG pH POC ABG pCO2 POC ABG pO2 ABG pO2 ABG HCO3 ABG Base Excess ABG Hemoglobin Oxyhemoglobin Sodium Potassium Chloride Carbon Dioxide BUN Creatinine Glucose POC Glucose 151 H 110 H 163 H Calcium Phosphorus Magnesium ALT Alkaline Phosphatase Total Creatine Kinase CK-MB (CK-2) Rel Index Troponin T Albumin LDL Cholesterol Direct PTH Intact Salicylates Acetaminophen Crossmatch 03/16/19 03/16/19 03/16/19 11:55 17:04 23:58 WBC RBC Hgb Hct MCV MCH MCHC RDW Plt Count Lymph % (Auto) Stone % (Auto) Eos % (Auto) Lymph # Stone # Eos # Seg Neutrophils % Seg Neuts % (Manual) Lymphocytes % (Manual) Eosinophils % (Manual) Seg Neutrophils # Lymphocytes # (Manual) Eosinophils # (Manual) PT INR D-Dimer POC ABG pH POC ABG pCO2 POC ABG pO2 ABG pO2 ABG HCO3 ABG Base Excess ABG Hemoglobin Oxyhemoglobin Sodium Potassium Chloride Carbon Dioxide BUN Creatinine Glucose POC Glucose 114 H 147 H 192 H Calcium Phosphorus Magnesium ALT Alkaline Phosphatase Total Creatine Kinase CK-MB (CK-2) Rel Index Troponin T Albumin LDL Cholesterol Direct PTH Intact Salicylates Acetaminophen Crossmatch 03/17/19 03/17/19 03/17/19 05:53 11:17 17:01 WBC RBC Hgb Hct MCV MCH MCHC RDW Plt Count Lymph % (Auto) Stone % (Auto) Eos % (Auto) Lymph # Stone # Eos # Seg Neutrophils % Seg Neuts % (Manual) Lymphocytes % (Manual) Eosinophils % (Manual) Seg Neutrophils # Lymphocytes # (Manual) Eosinophils # (Manual) PT INR D-Dimer POC ABG pH POC ABG pCO2 POC ABG pO2 ABG pO2 ABG HCO3 ABG Base Excess ABG Hemoglobin Oxyhemoglobin Sodium Potassium Chloride Carbon Dioxide BUN Creatinine Glucose POC Glucose 151 H 161 H 152 H Calcium Phosphorus Magnesium ALT Alkaline Phosphatase Total Creatine Kinase CK-MB (CK-2) Rel Index Troponin T Albumin LDL Cholesterol Direct PTH Intact Salicylates Acetaminophen Crossmatch 03/17/19 03/18/19 03/18/19 21:47 04:15 04:44 WBC RBC Hgb Hct MCV MCH MCHC RDW Plt Count Lymph % (Auto) Stone % (Auto) Eos % (Auto) Lymph # Stone # Eos # Seg Neutrophils % Seg Neuts % (Manual) Lymphocytes % (Manual) Eosinophils % (Manual) Seg Neutrophils # Lymphocytes # (Manual) Eosinophils # (Manual) PT INR D-Dimer POC ABG pH POC ABG pCO2 POC ABG pO2 ABG pO2 102.8 H ABG HCO3 28.3 H ABG Base Excess ABG Hemoglobin 10.4 L Oxyhemoglobin 94.5 L Sodium Potassium Chloride Carbon Dioxide BUN Creatinine Glucose POC Glucose 170 H 150 H Calcium Phosphorus Magnesium ALT Alkaline Phosphatase Total Creatine Kinase CK-MB (CK-2) Rel Index Troponin T Albumin LDL Cholesterol Direct PTH Intact Salicylates Acetaminophen Crossmatch 03/18/19 03/18/19 03/18/19 06:38 12:12 17:47 WBC RBC Hgb Hct MCV MCH MCHC RDW Plt Count Lymph % (Auto) Stone % (Auto) Eos % (Auto) Lymph # Stone # Eos # Seg Neutrophils % Seg Neuts % (Manual) Lymphocytes % (Manual) Eosinophils % (Manual) Seg Neutrophils # Lymphocytes # (Manual) Eosinophils # (Manual) PT INR D-Dimer POC ABG pH 7.510 H POC ABG pCO2 POC ABG pO2 164 H ABG pO2 ABG HCO3 ABG Base Excess ABG Hemoglobin Oxyhemoglobin Sodium Potassium Chloride Carbon Dioxide BUN Creatinine Glucose POC Glucose 145 H 149 H Calcium Phosphorus Magnesium ALT Alkaline Phosphatase Total Creatine Kinase CK-MB (CK-2) Rel Index Troponin T Albumin LDL Cholesterol Direct PTH Intact Salicylates Acetaminophen Crossmatch 03/18/19 03/19/19 03/19/19 23:25 01:11 04:23 WBC 15.6 H RBC 2.51 L Hgb 6.5 L Hct 21.6 L MCV MCH 26 L MCHC 30 L RDW 19.8 H Plt Count Lymph % (Auto) 6.0 L Stone % (Auto) Eos % (Auto) Lymph # 0.9 L Stone # 1.0 H Eos # Seg Neutrophils % 85.5 H Seg Neuts % (Manual) Lymphocytes % (Manual) Eosinophils % (Manual) Seg Neutrophils # 13.4 H Lymphocytes # (Manual) Eosinophils # (Manual) PT INR D-Dimer POC ABG pH POC ABG pCO2 POC ABG pO2 ABG pO2 78.3 L ABG HCO3 30.7 H ABG Base Excess 5.8 H ABG Hemoglobin 5.8 L Oxyhemoglobin 94.6 L Sodium Potassium Chloride Carbon Dioxide BUN Creatinine Glucose POC Glucose 190 H Calcium Phosphorus Magnesium ALT Alkaline Phosphatase Total Creatine Kinase CK-MB (CK-2) Rel Index Troponin T Albumin LDL Cholesterol Direct PTH Intact Salicylates Acetaminophen Crossmatch 03/19/19 03/19/19 03/19/19 05:22 05:35 08:54 WBC RBC Hgb Hct MCV MCH MCHC RDW Plt Count Lymph % (Auto) Stone % (Auto) Eos % (Auto) Lymph # Stone # Eos # Seg Neutrophils % Seg Neuts % (Manual) Lymphocytes % (Manual) Eosinophils % (Manual) Seg Neutrophils # Lymphocytes # (Manual) Eosinophils # (Manual) PT INR D-Dimer POC ABG pH POC ABG pCO2 POC ABG pO2 ABG pO2 ABG HCO3 ABG Base Excess ABG Hemoglobin Oxyhemoglobin Sodium Potassium Chloride Carbon Dioxide BUN Creatinine Glucose POC Glucose 167 H Calcium Phosphorus Magnesium ALT Alkaline Phosphatase Total Creatine Kinase CK-MB (CK-2) Rel Index Troponin T Albumin LDL Cholesterol Direct PTH Intact Salicylates Acetaminophen Crossmatch See Detail See Detail 03/19/19 03/19/19 03/19/19 12:36 17:02 23:25 WBC RBC Hgb Hct MCV MCH MCHC RDW Plt Count Lymph % (Auto) Stone % (Auto) Eos % (Auto) Lymph # Stone # Eos # Seg Neutrophils % Seg Neuts % (Manual) Lymphocytes % (Manual) Eosinophils % (Manual) Seg Neutrophils # Lymphocytes # (Manual) Eosinophils # (Manual) PT INR D-Dimer POC ABG pH POC ABG pCO2 POC ABG pO2 ABG pO2 ABG HCO3 ABG Base Excess ABG Hemoglobin Oxyhemoglobin Sodium Potassium Chloride Carbon Dioxide BUN Creatinine Glucose POC Glucose 167 H 135 H 136 H Calcium Phosphorus Magnesium ALT Alkaline Phosphatase Total Creatine Kinase CK-MB (CK-2) Rel Index Troponin T Albumin LDL Cholesterol Direct PTH Intact Salicylates Acetaminophen Crossmatch 03/20/19 03/20/19 03/20/19 05:38 08:40 08:40 WBC RBC 2.61 L Hgb 7.1 L Hct 22.0 L MCV MCH 27 L MCHC RDW 19.6 H Plt Count Lymph % (Auto) 8.2 L Stone % (Auto) 8.3 H Eos % (Auto) 5.7 H Lymph # 0.8 L Stone # Eos # 0.5 H Seg Neutrophils % 77.3 H Seg Neuts % (Manual) Lymphocytes % (Manual) Eosinophils % (Manual) Seg Neutrophils # Lymphocytes # (Manual) Eosinophils # (Manual) PT INR D-Dimer POC ABG pH POC ABG pCO2 POC ABG pO2 ABG pO2 ABG HCO3 ABG Base Excess ABG Hemoglobin Oxyhemoglobin Sodium Potassium Chloride 95.9 L Carbon Dioxide BUN 69 H Creatinine 2.8 H Glucose 115 H POC Glucose 134 H Calcium 10.5 H Phosphorus Magnesium ALT Alkaline Phosphatase Total Creatine Kinase CK-MB (CK-2) Rel Index Troponin T Albumin LDL Cholesterol Direct PTH Intact Salicylates Acetaminophen Crossmatch 03/20/19 03/20/19 03/20/19 12:13 18:04 23:49 WBC RBC Hgb Hct MCV MCH MCHC RDW Plt Count Lymph % (Auto) Stone % (Auto) Eos % (Auto) Lymph # Stone # Eos # Seg Neutrophils % Seg Neuts % (Manual) Lymphocytes % (Manual) Eosinophils % (Manual) Seg Neutrophils # Lymphocytes # (Manual) Eosinophils # (Manual) PT INR D-Dimer POC ABG pH POC ABG pCO2 POC ABG pO2 ABG pO2 ABG HCO3 ABG Base Excess ABG Hemoglobin Oxyhemoglobin Sodium Potassium Chloride Carbon Dioxide BUN Creatinine Glucose POC Glucose 144 H 165 H 172 H Calcium Phosphorus Magnesium ALT Alkaline Phosphatase Total Creatine Kinase CK-MB (CK-2) Rel Index Troponin T Albumin LDL Cholesterol Direct PTH Intact Salicylates Acetaminophen Crossmatch 03/21/19 03/21/19 03/21/19 05:00 06:29 06:30 WBC RBC 2.72 L Hgb 7.4 L Hct 22.9 L MCV MCH 27 L MCHC RDW 19.4 H Plt Count Lymph % (Auto) Stone % (Auto) Eos % (Auto) Lymph # Stone # Eos # Seg Neutrophils % Seg Neuts % (Manual) 81.0 H Lymphocytes % (Manual) 8.0 L Eosinophils % (Manual) 8.0 H Seg Neutrophils # Lymphocytes # (Manual) 0.7 L Eosinophils # (Manual) 0.7 H PT INR D-Dimer POC ABG pH POC ABG pCO2 POC ABG pO2 ABG pO2 ABG HCO3 ABG Base Excess ABG Hemoglobin Oxyhemoglobin Sodium Potassium Chloride Carbon Dioxide 33 H BUN 43 H Creatinine 1.7 H Glucose 145 H POC Glucose 156 H Calcium Phosphorus Magnesium ALT Alkaline Phosphatase 212 H Total Creatine Kinase CK-MB (CK-2) Rel Index Troponin T Albumin 2.2 L LDL Cholesterol Direct PTH Intact Salicylates Acetaminophen Crossmatch 03/21/19 03/21/19 03/22/19 12:02 18:07 00:21 WBC RBC Hgb Hct MCV MCH MCHC RDW Plt Count Lymph % (Auto) Stone % (Auto) Eos % (Auto) Lymph # Stone # Eos # Seg Neutrophils % Seg Neuts % (Manual) Lymphocytes % (Manual) Eosinophils % (Manual) Seg Neutrophils # Lymphocytes # (Manual) Eosinophils # (Manual) PT INR D-Dimer POC ABG pH POC ABG pCO2 POC ABG pO2 ABG pO2 ABG HCO3 ABG Base Excess ABG Hemoglobin Oxyhemoglobin Sodium Potassium Chloride Carbon Dioxide BUN Creatinine Glucose POC Glucose 163 H 144 H 153 H Calcium Phosphorus Magnesium ALT Alkaline Phosphatase Total Creatine Kinase CK-MB (CK-2) Rel Index Troponin T Albumin LDL Cholesterol Direct PTH Intact Salicylates Acetaminophen Crossmatch 03/22/19 03/22/19 03/22/19 05:23 05:23 05:31 WBC RBC 2.58 L Hgb 7.1 L Hct 21.8 L MCV MCH 27 L MCHC RDW 19.2 H Plt Count Lymph % (Auto) Stone % (Auto) Eos % (Auto) Lymph # Stone # Eos # Seg Neutrophils % Seg Neuts % (Manual) Lymphocytes % (Manual) Eosinophils % (Manual) Seg Neutrophils # Lymphocytes # (Manual) Eosinophils # (Manual) PT INR D-Dimer POC ABG pH POC ABG pCO2 POC ABG pO2 ABG pO2 ABG HCO3 ABG Base Excess ABG Hemoglobin Oxyhemoglobin Sodium 147 H Potassium Chloride Carbon Dioxide BUN 68 H Creatinine 2.5 H Glucose POC Glucose 116 H Calcium 10.3 H Phosphorus Magnesium ALT Alkaline Phosphatase Total Creatine Kinase CK-MB (CK-2) Rel Index Troponin T Albumin LDL Cholesterol Direct PTH Intact Salicylates Acetaminophen Crossmatch 03/22/19 03/22/19 03/22/19 08:48 12:37 17:35 WBC RBC Hgb Hct MCV MCH MCHC RDW Plt Count Lymph % (Auto) Stone % (Auto) Eos % (Auto) Lymph # Stone # Eos # Seg Neutrophils % Seg Neuts % (Manual) Lymphocytes % (Manual) Eosinophils % (Manual) Seg Neutrophils # Lymphocytes # (Manual) Eosinophils # (Manual) PT INR D-Dimer POC ABG pH POC ABG pCO2 POC ABG pO2 ABG pO2 ABG HCO3 ABG Base Excess ABG Hemoglobin Oxyhemoglobin Sodium Potassium Chloride Carbon Dioxide BUN Creatinine Glucose POC Glucose 143 H 155 H Calcium Phosphorus Magnesium ALT Alkaline Phosphatase Total Creatine Kinase CK-MB (CK-2) Rel Index Troponin T Albumin LDL Cholesterol Direct PTH Intact Salicylates Acetaminophen Crossmatch See Detail 03/23/19 03/23/19 03/23/19 00:07 04:00 04:00 WBC 11.2 H RBC 2.32 L Hgb 6.4 L Hct 19.7 L* MCV MCH MCHC RDW 19.4 H Plt Count Lymph % (Auto) Stone % (Auto) Eos % (Auto) Lymph # Stone # Eos # Seg Neutrophils % Seg Neuts % (Manual) Lymphocytes % (Manual) Eosinophils % (Manual) Seg Neutrophils # Lymphocytes # (Manual) Eosinophils # (Manual) PT INR D-Dimer POC ABG pH POC ABG pCO2 POC ABG pO2 ABG pO2 ABG HCO3 ABG Base Excess ABG Hemoglobin Oxyhemoglobin Sodium 147 H Potassium 5.2 H Chloride Carbon Dioxide BUN 86 H Creatinine 3.2 H Glucose 128 H POC Glucose 135 H Calcium 10.3 H Phosphorus Magnesium ALT Alkaline Phosphatase Total Creatine Kinase CK-MB (CK-2) Rel Index Troponin T Albumin LDL Cholesterol Direct PTH Intact Salicylates Acetaminophen Crossmatch 03/23/19 03/23/19 03/23/19 05:21 11:36 11:36 WBC RBC Hgb 7.9 L Hct 25.0 L MCV MCH MCHC RDW Plt Count Lymph % (Auto) Stone % (Auto) Eos % (Auto) Lymph # Stone # Eos # Seg Neutrophils % Seg Neuts % (Manual) Lymphocytes % (Manual) Eosinophils % (Manual) Seg Neutrophils # Lymphocytes # (Manual) Eosinophils # (Manual) PT INR D-Dimer POC ABG pH POC ABG pCO2 POC ABG pO2 ABG pO2 ABG HCO3 ABG Base Excess ABG Hemoglobin Oxyhemoglobin Sodium Potassium Chloride Carbon Dioxide BUN Creatinine Glucose POC Glucose 132 H 147 H Calcium Phosphorus Magnesium ALT Alkaline Phosphatase Total Creatine Kinase CK-MB (CK-2) Rel Index Troponin T Albumin LDL Cholesterol Direct PTH Intact Salicylates Acetaminophen Crossmatch 03/23/19 03/24/19 03/24/19 17:31 01:22 04:20 WBC 12.2 H RBC 3.05 L Hgb 8.3 L Hct 25.9 L MCV MCH 27 L MCHC RDW 18.7 H Plt Count Lymph % (Auto) Stone % (Auto) Eos % (Auto) Lymph # Stone # Eos # Seg Neutrophils % Seg Neuts % (Manual) Lymphocytes % (Manual) Eosinophils % (Manual) Seg Neutrophils # Lymphocytes # (Manual) Eosinophils # (Manual) PT INR D-Dimer POC ABG pH POC ABG pCO2 POC ABG pO2 ABG pO2 ABG HCO3 ABG Base Excess ABG Hemoglobin Oxyhemoglobin Sodium Potassium Chloride Carbon Dioxide BUN Creatinine Glucose POC Glucose 182 H 113 H Calcium Phosphorus Magnesium ALT Alkaline Phosphatase Total Creatine Kinase CK-MB (CK-2) Rel Index Troponin T Albumin LDL Cholesterol Direct PTH Intact Salicylates Acetaminophen Crossmatch 03/24/19 03/24/19 03/24/19 04:20 11:59 18:14 WBC RBC Hgb Hct MCV MCH MCHC RDW Plt Count Lymph % (Auto) Stone % (Auto) Eos % (Auto) Lymph # Stone # Eos # Seg Neutrophils % Seg Neuts % (Manual) Lymphocytes % (Manual) Eosinophils % (Manual) Seg Neutrophils # Lymphocytes # (Manual) Eosinophils # (Manual) PT INR D-Dimer POC ABG pH POC ABG pCO2 POC ABG pO2 ABG pO2 ABG HCO3 ABG Base Excess ABG Hemoglobin Oxyhemoglobin Sodium Potassium Chloride 94.8 L Carbon Dioxide 32 H BUN 53 H Creatinine 2.3 H Glucose POC Glucose 163 H 134 H Calcium Phosphorus Magnesium ALT Alkaline Phosphatase Total Creatine Kinase CK-MB (CK-2) Rel Index Troponin T Albumin LDL Cholesterol Direct PTH Intact Salicylates Acetaminophen Crossmatch 03/24/19 03/25/19 03/25/19 23:15 05:52 12:02 WBC RBC Hgb Hct MCV MCH MCHC RDW Plt Count Lymph % (Auto) Stone % (Auto) Eos % (Auto) Lymph # Stone # Eos # Seg Neutrophils % Seg Neuts % (Manual) Lymphocytes % (Manual) Eosinophils % (Manual) Seg Neutrophils # Lymphocytes # (Manual) Eosinophils # (Manual) PT INR D-Dimer POC ABG pH POC ABG pCO2 POC ABG pO2 ABG pO2 ABG HCO3 ABG Base Excess ABG Hemoglobin Oxyhemoglobin Sodium Potassium Chloride Carbon Dioxide BUN Creatinine Glucose POC Glucose 129 H 123 H 125 H Calcium Phosphorus Magnesium ALT Alkaline Phosphatase Total Creatine Kinase CK-MB (CK-2) Rel Index Troponin T Albumin LDL Cholesterol Direct PTH Intact Salicylates Acetaminophen Crossmatch 03/25/19 03/26/19 03/26/19 17:27 00:30 05:35 WBC RBC 3.01 L Hgb 8.1 L Hct 25.7 L MCV MCH 27 L MCHC RDW 19.2 H Plt Count Lymph % (Auto) 11.4 L Stone % (Auto) Eos % (Auto) 8.0 H Lymph # 1.0 L Stone # Eos # 0.7 H Seg Neutrophils % 73.9 H Seg Neuts % (Manual) Lymphocytes % (Manual) Eosinophils % (Manual) Seg Neutrophils # Lymphocytes # (Manual) Eosinophils # (Manual) PT INR D-Dimer POC ABG pH POC ABG pCO2 POC ABG pO2 ABG pO2 ABG HCO3 ABG Base Excess ABG Hemoglobin Oxyhemoglobin Sodium Potassium Chloride Carbon Dioxide BUN Creatinine Glucose POC Glucose 130 H 129 H Calcium Phosphorus Magnesium ALT Alkaline Phosphatase Total Creatine Kinase CK-MB (CK-2) Rel Index Troponin T Albumin LDL Cholesterol Direct PTH Intact Salicylates Acetaminophen Crossmatch 03/26/19 03/26/19 03/26/19 05:35 05:45 12:16 WBC RBC Hgb Hct MCV MCH MCHC RDW Plt Count Lymph % (Auto) Stone % (Auto) Eos % (Auto) Lymph # Stone # Eos # Seg Neutrophils % Seg Neuts % (Manual) Lymphocytes % (Manual) Eosinophils % (Manual) Seg Neutrophils # Lymphocytes # (Manual) Eosinophils # (Manual) PT INR D-Dimer POC ABG pH POC ABG pCO2 POC ABG pO2 ABG pO2 ABG HCO3 ABG Base Excess ABG Hemoglobin Oxyhemoglobin Sodium Potassium Chloride 94.9 L Carbon Dioxide 31 H BUN 44 H Creatinine 2.0 H Glucose POC Glucose 118 H 107 H Calcium Phosphorus Magnesium ALT Alkaline Phosphatase Total Creatine Kinase CK-MB (CK-2) Rel Index Troponin T Albumin LDL Cholesterol Direct PTH Intact Salicylates Acetaminophen Crossmatch 03/26/19 03/27/19 03/27/19 17:56 00:36 05:37 WBC RBC Hgb Hct MCV MCH MCHC RDW Plt Count Lymph % (Auto) Stone % (Auto) Eos % (Auto) Lymph # Stone # Eos # Seg Neutrophils % Seg Neuts % (Manual) Lymphocytes % (Manual) Eosinophils % (Manual) Seg Neutrophils # Lymphocytes # (Manual) Eosinophils # (Manual) PT INR D-Dimer POC ABG pH POC ABG pCO2 POC ABG pO2 ABG pO2 ABG HCO3 ABG Base Excess ABG Hemoglobin Oxyhemoglobin Sodium Potassium Chloride Carbon Dioxide BUN Creatinine Glucose POC Glucose 107 H 110 H 122 H Calcium Phosphorus Magnesium ALT Alkaline Phosphatase Total Creatine Kinase CK-MB (CK-2) Rel Index Troponin T Albumin LDL Cholesterol Direct PTH Intact Salicylates Acetaminophen Crossmatch 03/27/19 03/27/19 03/28/19 11:22 18:00 05:17 WBC RBC Hgb Hct MCV MCH MCHC RDW Plt Count Lymph % (Auto) Stone % (Auto) Eos % (Auto) Lymph # Stone # Eos # Seg Neutrophils % Seg Neuts % (Manual) Lymphocytes % (Manual) Eosinophils % (Manual) Seg Neutrophils # Lymphocytes # (Manual) Eosinophils # (Manual) PT INR D-Dimer POC ABG pH POC ABG pCO2 POC ABG pO2 ABG pO2 ABG HCO3 ABG Base Excess ABG Hemoglobin Oxyhemoglobin Sodium Potassium Chloride Carbon Dioxide BUN Creatinine Glucose POC Glucose 120 H 111 H 107 H Calcium Phosphorus Magnesium ALT Alkaline Phosphatase Total Creatine Kinase CK-MB (CK-2) Rel Index Troponin T Albumin LDL Cholesterol Direct PTH Intact Salicylates Acetaminophen Crossmatch 03/28/19 03/28/19 03/29/19 12:27 18:08 05:47 WBC RBC Hgb Hct MCV MCH MCHC RDW Plt Count Lymph % (Auto) Stone % (Auto) Eos % (Auto) Lymph # Stone # Eos # Seg Neutrophils % Seg Neuts % (Manual) Lymphocytes % (Manual) Eosinophils % (Manual) Seg Neutrophils # Lymphocytes # (Manual) Eosinophils # (Manual) PT INR D-Dimer POC ABG pH POC ABG pCO2 POC ABG pO2 ABG pO2 ABG HCO3 ABG Base Excess ABG Hemoglobin Oxyhemoglobin Sodium Potassium Chloride Carbon Dioxide BUN Creatinine Glucose POC Glucose 114 H 121 H 112 H Calcium Phosphorus Magnesium ALT Alkaline Phosphatase Total Creatine Kinase CK-MB (CK-2) Rel Index Troponin T Albumin LDL Cholesterol Direct PTH Intact Salicylates Acetaminophen Crossmatch 03/29/19 03/29/19 03/30/19 12:14 18:08 00:31 WBC RBC Hgb Hct MCV MCH MCHC RDW Plt Count Lymph % (Auto) Stone % (Auto) Eos % (Auto) Lymph # Stone # Eos # Seg Neutrophils % Seg Neuts % (Manual) Lymphocytes % (Manual) Eosinophils % (Manual) Seg Neutrophils # Lymphocytes # (Manual) Eosinophils # (Manual) PT INR D-Dimer POC ABG pH POC ABG pCO2 POC ABG pO2 ABG pO2 ABG HCO3 ABG Base Excess ABG Hemoglobin Oxyhemoglobin Sodium Potassium Chloride Carbon Dioxide BUN Creatinine Glucose POC Glucose 117 H 140 H 114 H Calcium Phosphorus Magnesium ALT Alkaline Phosphatase Total Creatine Kinase CK-MB (CK-2) Rel Index Troponin T Albumin LDL Cholesterol Direct PTH Intact Salicylates Acetaminophen Crossmatch 03/30/19 03/30/19 03/30/19 10:13 10:13 23:53 WBC RBC 2.81 L Hgb 7.7 L Hct 24.3 L MCV MCH 27 L MCHC RDW 19.0 H Plt Count Lymph % (Auto) 12.2 L Stone % (Auto) Eos % (Auto) 7.9 H Lymph # 1.0 L Stone # Eos # 0.6 H Seg Neutrophils % 72.3 H Seg Neuts % (Manual) Lymphocytes % (Manual) Eosinophils % (Manual) Seg Neutrophils # Lymphocytes # (Manual) Eosinophils # (Manual) PT INR D-Dimer POC ABG pH POC ABG pCO2 POC ABG pO2 ABG pO2 ABG HCO3 ABG Base Excess ABG Hemoglobin Oxyhemoglobin Sodium Potassium 5.1 H Chloride 96.5 L Carbon Dioxide BUN 73 H Creatinine 3.9 H D Glucose POC Glucose 114 H Calcium 10.3 H Phosphorus 6.30 H Magnesium 2.70 H ALT Alkaline Phosphatase 185 H Total Creatine Kinase CK-MB (CK-2) Rel Index Troponin T Albumin 2.6 L LDL Cholesterol Direct PTH Intact Salicylates Acetaminophen Crossmatch 03/31/19 03/31/19 03/31/19 05:45 10:26 10:26 WBC RBC 3.01 L Hgb 8.2 L Hct 26.4 L MCV MCH 27 L MCHC 31 L RDW 20.3 H Plt Count Lymph % (Auto) 13.3 L Stone % (Auto) Eos % (Auto) 7.2 H Lymph # 1.1 L Stone # Eos # 0.6 H Seg Neutrophils % 72.1 H Seg Neuts % (Manual) Lymphocytes % (Manual) Eosinophils % (Manual) Seg Neutrophils # Lymphocytes # (Manual) Eosinophils # (Manual) PT INR D-Dimer POC ABG pH POC ABG pCO2 POC ABG pO2 ABG pO2 ABG HCO3 ABG Base Excess ABG Hemoglobin Oxyhemoglobin Sodium Potassium Chloride 96.9 L Carbon Dioxide 33 H BUN 37 H Creatinine 2.4 H Glucose POC Glucose 108 H Calcium 10.3 H Phosphorus Magnesium ALT Alkaline Phosphatase Total Creatine Kinase CK-MB (CK-2) Rel Index Troponin T Albumin LDL Cholesterol Direct PTH Intact Salicylates Acetaminophen Crossmatch 03/31/19 04/01/19 04/01/19 12:38 05:48 12:06 WBC RBC Hgb Hct MCV MCH MCHC RDW Plt Count Lymph % (Auto) Stone % (Auto) Eos % (Auto) Lymph # Stone # Eos # Seg Neutrophils % Seg Neuts % (Manual) Lymphocytes % (Manual) Eosinophils % (Manual) Seg Neutrophils # Lymphocytes # (Manual) Eosinophils # (Manual) PT INR D-Dimer POC ABG pH POC ABG pCO2 POC ABG pO2 ABG pO2 ABG HCO3 ABG Base Excess ABG Hemoglobin Oxyhemoglobin Sodium Potassium Chloride Carbon Dioxide BUN Creatinine Glucose POC Glucose 108 H 114 H 111 H Calcium Phosphorus Magnesium ALT Alkaline Phosphatase Total Creatine Kinase CK-MB (CK-2) Rel Index Troponin T Albumin LDL Cholesterol Direct PTH Intact Salicylates Acetaminophen Crossmatch 04/01/19 04/02/19 04/04/19 18:24 00:36 23:55 WBC RBC Hgb Hct MCV MCH MCHC RDW Plt Count Lymph % (Auto) Stone % (Auto) Eos % (Auto) Lymph # Stone # Eos # Seg Neutrophils % Seg Neuts % (Manual) Lymphocytes % (Manual) Eosinophils % (Manual) Seg Neutrophils # Lymphocytes # (Manual) Eosinophils # (Manual) PT INR D-Dimer POC ABG pH POC ABG pCO2 POC ABG pO2 ABG pO2 ABG HCO3 ABG Base Excess ABG Hemoglobin Oxyhemoglobin Sodium Potassium Chloride Carbon Dioxide BUN Creatinine Glucose POC Glucose 113 H 117 H 109 H Calcium Phosphorus Magnesium ALT Alkaline Phosphatase Total Creatine Kinase CK-MB (CK-2) Rel Index Troponin T Albumin LDL Cholesterol Direct PTH Intact Salicylates Acetaminophen Crossmatch 04/06/19 04/06/19 04/06/19 00:11 06:02 23:30 WBC RBC Hgb Hct MCV MCH MCHC RDW Plt Count Lymph % (Auto) Stone % (Auto) Eos % (Auto) Lymph # Stone # Eos # Seg Neutrophils % Seg Neuts % (Manual) Lymphocytes % (Manual) Eosinophils % (Manual) Seg Neutrophils # Lymphocytes # (Manual) Eosinophils # (Manual) PT INR D-Dimer POC ABG pH POC ABG pCO2 POC ABG pO2 ABG pO2 ABG HCO3 ABG Base Excess ABG Hemoglobin Oxyhemoglobin Sodium Potassium Chloride Carbon Dioxide BUN Creatinine Glucose POC Glucose 116 H 112 H 112 H Calcium Phosphorus Magnesium ALT Alkaline Phosphatase Total Creatine Kinase CK-MB (CK-2) Rel Index Troponin T Albumin LDL Cholesterol Direct PTH Intact Salicylates Acetaminophen Crossmatch 04/08/19 04/08/19 04/08/19 02:23 06:19 13:01 WBC RBC Hgb Hct MCV MCH MCHC RDW Plt Count Lymph % (Auto) Stone % (Auto) Eos % (Auto) Lymph # Stone # Eos # Seg Neutrophils % Seg Neuts % (Manual) Lymphocytes % (Manual) Eosinophils % (Manual) Seg Neutrophils # Lymphocytes # (Manual) Eosinophils # (Manual) PT INR D-Dimer POC ABG pH POC ABG pCO2 POC ABG pO2 ABG pO2 ABG HCO3 ABG Base Excess ABG Hemoglobin Oxyhemoglobin Sodium Potassium Chloride Carbon Dioxide BUN Creatinine Glucose POC Glucose 144 H 126 H 118 H Calcium Phosphorus Magnesium ALT Alkaline Phosphatase Total Creatine Kinase CK-MB (CK-2) Rel Index Troponin T Albumin LDL Cholesterol Direct PTH Intact Salicylates Acetaminophen Crossmatch 04/08/19 04/09/19 04/10/19 23:28 05:52 06:34 WBC RBC Hgb Hct MCV MCH MCHC RDW Plt Count Lymph % (Auto) Stone % (Auto) Eos % (Auto) Lymph # Stone # Eos # Seg Neutrophils % Seg Neuts % (Manual) Lymphocytes % (Manual) Eosinophils % (Manual) Seg Neutrophils # Lymphocytes # (Manual) Eosinophils # (Manual) PT INR D-Dimer POC ABG pH POC ABG pCO2 POC ABG pO2 ABG pO2 ABG HCO3 ABG Base Excess ABG Hemoglobin Oxyhemoglobin Sodium Potassium Chloride Carbon Dioxide BUN Creatinine Glucose POC Glucose 119 H 116 H 114 H Calcium Phosphorus Magnesium ALT Alkaline Phosphatase Total Creatine Kinase CK-MB (CK-2) Rel Index Troponin T Albumin LDL Cholesterol Direct PTH Intact Salicylates Acetaminophen Crossmatch 04/10/19 04/10/19 04/11/19 12:34 18:59 00:36 WBC RBC Hgb Hct MCV MCH MCHC RDW Plt Count Lymph % (Auto) Stone % (Auto) Eos % (Auto) Lymph # Stone # Eos # Seg Neutrophils % Seg Neuts % (Manual) Lymphocytes % (Manual) Eosinophils % (Manual) Seg Neutrophils # Lymphocytes # (Manual) Eosinophils # (Manual) PT INR D-Dimer POC ABG pH POC ABG pCO2 POC ABG pO2 ABG pO2 ABG HCO3 ABG Base Excess ABG Hemoglobin Oxyhemoglobin Sodium Potassium Chloride Carbon Dioxide BUN Creatinine Glucose POC Glucose 112 H 109 H 124 H Calcium Phosphorus Magnesium ALT Alkaline Phosphatase Total Creatine Kinase CK-MB (CK-2) Rel Index Troponin T Albumin LDL Cholesterol Direct PTH Intact Salicylates Acetaminophen Crossmatch 04/11/19 04/11/19 04/12/19 08:01 17:25 02:18 WBC RBC Hgb Hct MCV MCH MCHC RDW Plt Count Lymph % (Auto) Stone % (Auto) Eos % (Auto) Lymph # Stone # Eos # Seg Neutrophils % Seg Neuts % (Manual) Lymphocytes % (Manual) Eosinophils % (Manual) Seg Neutrophils # Lymphocytes # (Manual) Eosinophils # (Manual) PT INR D-Dimer POC ABG pH POC ABG pCO2 POC ABG pO2 ABG pO2 ABG HCO3 ABG Base Excess ABG Hemoglobin Oxyhemoglobin Sodium Potassium Chloride Carbon Dioxide BUN Creatinine Glucose POC Glucose 118 H 106 H 125 H Calcium Phosphorus Magnesium ALT Alkaline Phosphatase Total Creatine Kinase CK-MB (CK-2) Rel Index Troponin T Albumin LDL Cholesterol Direct PTH Intact Salicylates Acetaminophen Crossmatch 04/12/19 04/12/19 04/12/19 06:24 12:22 17:13 WBC RBC Hgb Hct MCV MCH MCHC RDW Plt Count Lymph % (Auto) Stone % (Auto) Eos % (Auto) Lymph # Stone # Eos # Seg Neutrophils % Seg Neuts % (Manual) Lymphocytes % (Manual) Eosinophils % (Manual) Seg Neutrophils # Lymphocytes # (Manual) Eosinophils # (Manual) PT INR D-Dimer POC ABG pH POC ABG pCO2 POC ABG pO2 ABG pO2 ABG HCO3 ABG Base Excess ABG Hemoglobin Oxyhemoglobin Sodium Potassium Chloride Carbon Dioxide BUN Creatinine Glucose POC Glucose 128 H 114 H 110 H Calcium Phosphorus Magnesium ALT Alkaline Phosphatase Total Creatine Kinase CK-MB (CK-2) Rel Index Troponin T Albumin LDL Cholesterol Direct PTH Intact Salicylates Acetaminophen Crossmatch 04/13/19 04/13/19 04/13/19 06:59 07:31 07:31 WBC RBC 3.34 L Hgb 8.9 L Hct 28.6 L MCV MCH 27 L MCHC 31 L RDW 19.6 H Plt Count Lymph % (Auto) Stone % (Auto) Eos % (Auto) Lymph # Stone # Eos # Seg Neutrophils % Seg Neuts % (Manual) Lymphocytes % (Manual) Eosinophils % (Manual) Seg Neutrophils # Lymphocytes # (Manual) Eosinophils # (Manual) PT INR D-Dimer POC ABG pH POC ABG pCO2 POC ABG pO2 ABG pO2 ABG HCO3 ABG Base Excess ABG Hemoglobin Oxyhemoglobin Sodium Potassium Chloride 96.4 L Carbon Dioxide 33 H BUN 66 H Creatinine 4.5 H Glucose 103 H POC Glucose 107 H Calcium Phosphorus Magnesium ALT Alkaline Phosphatase Total Creatine Kinase CK-MB (CK-2) Rel Index Troponin T Albumin LDL Cholesterol Direct PTH Intact Salicylates Acetaminophen Crossmatch 04/13/19 04/14/19 04/14/19 23:43 05:50 13:07 WBC RBC Hgb Hct MCV MCH MCHC RDW Plt Count Lymph % (Auto) Stone % (Auto) Eos % (Auto) Lymph # Stone # Eos # Seg Neutrophils % Seg Neuts % (Manual) Lymphocytes % (Manual) Eosinophils % (Manual) Seg Neutrophils # Lymphocytes # (Manual) Eosinophils # (Manual) PT INR D-Dimer POC ABG pH POC ABG pCO2 POC ABG pO2 ABG pO2 ABG HCO3 ABG Base Excess ABG Hemoglobin Oxyhemoglobin Sodium Potassium Chloride Carbon Dioxide BUN Creatinine Glucose POC Glucose 119 H 112 H 112 H Calcium Phosphorus Magnesium ALT Alkaline Phosphatase Total Creatine Kinase CK-MB (CK-2) Rel Index Troponin T Albumin LDL Cholesterol Direct PTH Intact Salicylates Acetaminophen Crossmatch 04/14/19 04/15/19 04/15/19 18:35 01:18 05:17 WBC RBC Hgb Hct MCV MCH MCHC RDW Plt Count Lymph % (Auto) Stone % (Auto) Eos % (Auto) Lymph # Stone # Eos # Seg Neutrophils % Seg Neuts % (Manual) Lymphocytes % (Manual) Eosinophils % (Manual) Seg Neutrophils # Lymphocytes # (Manual) Eosinophils # (Manual) PT INR D-Dimer POC ABG pH POC ABG pCO2 POC ABG pO2 ABG pO2 ABG HCO3 ABG Base Excess ABG Hemoglobin Oxyhemoglobin Sodium Potassium Chloride Carbon Dioxide BUN Creatinine Glucose POC Glucose 114 H 114 H 114 H Calcium Phosphorus Magnesium ALT Alkaline Phosphatase Total Creatine Kinase CK-MB (CK-2) Rel Index Troponin T Albumin LDL Cholesterol Direct PTH Intact Salicylates Acetaminophen Crossmatch 04/15/19 04/15/19 04/16/19 11:50 23:39 05:41 WBC RBC Hgb Hct MCV MCH MCHC RDW Plt Count Lymph % (Auto) Stone % (Auto) Eos % (Auto) Lymph # Stone # Eos # Seg Neutrophils % Seg Neuts % (Manual) Lymphocytes % (Manual) Eosinophils % (Manual) Seg Neutrophils # Lymphocytes # (Manual) Eosinophils # (Manual) PT INR D-Dimer POC ABG pH POC ABG pCO2 POC ABG pO2 ABG pO2 ABG HCO3 ABG Base Excess ABG Hemoglobin Oxyhemoglobin Sodium Potassium Chloride Carbon Dioxide BUN Creatinine Glucose POC Glucose 109 H 115 H 125 H Calcium Phosphorus Magnesium ALT Alkaline Phosphatase Total Creatine Kinase CK-MB (CK-2) Rel Index Troponin T Albumin LDL Cholesterol Direct PTH Intact Salicylates Acetaminophen Crossmatch 04/16/19 04/17/19 04/17/19 12:53 01:00 12:38 WBC RBC Hgb Hct MCV MCH MCHC RDW Plt Count Lymph % (Auto) Stone % (Auto) Eos % (Auto) Lymph # Stone # Eos # Seg Neutrophils % Seg Neuts % (Manual) Lymphocytes % (Manual) Eosinophils % (Manual) Seg Neutrophils # Lymphocytes # (Manual) Eosinophils # (Manual) PT INR D-Dimer POC ABG pH POC ABG pCO2 POC ABG pO2 ABG pO2 ABG HCO3 ABG Base Excess ABG Hemoglobin Oxyhemoglobin Sodium Potassium Chloride Carbon Dioxide BUN Creatinine Glucose POC Glucose 121 H 127 H 159 H Calcium Phosphorus Magnesium ALT Alkaline Phosphatase Total Creatine Kinase CK-MB (CK-2) Rel Index Troponin T Albumin LDL Cholesterol Direct PTH Intact Salicylates Acetaminophen Crossmatch 04/17/19 04/17/19 04/18/19 18:27 23:36 07:19 WBC RBC 3.49 L Hgb 9.0 L Hct 29.9 L MCV MCH 26 L MCHC 30 L RDW 20.0 H Plt Count Lymph % (Auto) Stone % (Auto) Eos % (Auto) Lymph # Stone # Eos # Seg Neutrophils % Seg Neuts % (Manual) Lymphocytes % (Manual) Eosinophils % (Manual) Seg Neutrophils # Lymphocytes # (Manual) Eosinophils # (Manual) PT INR D-Dimer POC ABG pH POC ABG pCO2 POC ABG pO2 ABG pO2 ABG HCO3 ABG Base Excess ABG Hemoglobin Oxyhemoglobin Sodium Potassium Chloride Carbon Dioxide BUN Creatinine Glucose POC Glucose 109 H 134 H Calcium Phosphorus Magnesium ALT Alkaline Phosphatase Total Creatine Kinase CK-MB (CK-2) Rel Index Troponin T Albumin LDL Cholesterol Direct PTH Intact Salicylates Acetaminophen Crossmatch 04/18/19 04/18/19 04/18/19 07:19 12:16 17:09 WBC RBC Hgb Hct MCV MCH MCHC RDW Plt Count Lymph % (Auto) Stone % (Auto) Eos % (Auto) Lymph # Stone # Eos # Seg Neutrophils % Seg Neuts % (Manual) Lymphocytes % (Manual) Eosinophils % (Manual) Seg Neutrophils # Lymphocytes # (Manual) Eosinophils # (Manual) PT INR D-Dimer POC ABG pH POC ABG pCO2 POC ABG pO2 ABG pO2 ABG HCO3 ABG Base Excess ABG Hemoglobin Oxyhemoglobin Sodium Potassium Chloride Carbon Dioxide BUN 41 H Creatinine 2.9 H Glucose 122 H POC Glucose 125 H 131 H Calcium Phosphorus Magnesium ALT Alkaline Phosphatase Total Creatine Kinase CK-MB (CK-2) Rel Index Troponin T Albumin LDL Cholesterol Direct PTH Intact Salicylates Acetaminophen Crossmatch 04/18/19 04/19/19 04/19/19 23:57 05:55 11:35 WBC RBC Hgb Hct MCV MCH MCHC RDW Plt Count Lymph % (Auto) Stone % (Auto) Eos % (Auto) Lymph # Stone # Eos # Seg Neutrophils % Seg Neuts % (Manual) Lymphocytes % (Manual) Eosinophils % (Manual) Seg Neutrophils # Lymphocytes # (Manual) Eosinophils # (Manual) PT INR D-Dimer POC ABG pH POC ABG pCO2 POC ABG pO2 ABG pO2 ABG HCO3 ABG Base Excess ABG Hemoglobin Oxyhemoglobin Sodium Potassium Chloride Carbon Dioxide BUN Creatinine Glucose POC Glucose 159 H 144 H 177 H Calcium Phosphorus Magnesium ALT Alkaline Phosphatase Total Creatine Kinase CK-MB (CK-2) Rel Index Troponin T Albumin LDL Cholesterol Direct PTH Intact Salicylates Acetaminophen Crossmatch 04/19/19 04/20/19 04/20/19 16:36 02:05 06:28 WBC RBC Hgb Hct MCV MCH MCHC RDW Plt Count Lymph % (Auto) Stone % (Auto) Eos % (Auto) Lymph # Stone # Eos # Seg Neutrophils % Seg Neuts % (Manual) Lymphocytes % (Manual) Eosinophils % (Manual) Seg Neutrophils # Lymphocytes # (Manual) Eosinophils # (Manual) PT INR D-Dimer POC ABG pH POC ABG pCO2 POC ABG pO2 ABG pO2 ABG HCO3 ABG Base Excess ABG Hemoglobin Oxyhemoglobin Sodium Potassium Chloride Carbon Dioxide BUN Creatinine Glucose POC Glucose 134 H 142 H 132 H Calcium Phosphorus Magnesium ALT Alkaline Phosphatase Total Creatine Kinase CK-MB (CK-2) Rel Index Troponin T Albumin LDL Cholesterol Direct PTH Intact Salicylates Acetaminophen Crossmatch 04/20/19 04/20/19 04/21/19 12:37 23:34 05:59 WBC RBC Hgb Hct MCV MCH MCHC RDW Plt Count Lymph % (Auto) Stone % (Auto) Eos % (Auto) Lymph # Stone # Eos # Seg Neutrophils % Seg Neuts % (Manual) Lymphocytes % (Manual) Eosinophils % (Manual) Seg Neutrophils # Lymphocytes # (Manual) Eosinophils # (Manual) PT INR D-Dimer POC ABG pH POC ABG pCO2 POC ABG pO2 ABG pO2 ABG HCO3 ABG Base Excess ABG Hemoglobin Oxyhemoglobin Sodium Potassium Chloride Carbon Dioxide BUN Creatinine Glucose POC Glucose 163 H 166 H 140 H Calcium Phosphorus Magnesium ALT Alkaline Phosphatase Total Creatine Kinase CK-MB (CK-2) Rel Index Troponin T Albumin LDL Cholesterol Direct PTH Intact Salicylates Acetaminophen Crossmatch 04/21/19 04/21/19 04/21/19 12:07 17:22 23:43 WBC RBC Hgb Hct MCV MCH MCHC RDW Plt Count Lymph % (Auto) Stone % (Auto) Eos % (Auto) Lymph # Stone # Eos # Seg Neutrophils % Seg Neuts % (Manual) Lymphocytes % (Manual) Eosinophils % (Manual) Seg Neutrophils # Lymphocytes # (Manual) Eosinophils # (Manual) PT INR D-Dimer POC ABG pH POC ABG pCO2 POC ABG pO2 ABG pO2 ABG HCO3 ABG Base Excess ABG Hemoglobin Oxyhemoglobin Sodium Potassium Chloride Carbon Dioxide BUN Creatinine Glucose POC Glucose 135 H 141 H 138 H Calcium Phosphorus Magnesium ALT Alkaline Phosphatase Total Creatine Kinase CK-MB (CK-2) Rel Index Troponin T Albumin LDL Cholesterol Direct PTH Intact Salicylates Acetaminophen Crossmatch 04/22/19 04/22/19 04/22/19 05:12 18:24 23:49 WBC RBC Hgb Hct MCV MCH MCHC RDW Plt Count Lymph % (Auto) Stone % (Auto) Eos % (Auto) Lymph # Stone # Eos # Seg Neutrophils % Seg Neuts % (Manual) Lymphocytes % (Manual) Eosinophils % (Manual) Seg Neutrophils # Lymphocytes # (Manual) Eosinophils # (Manual) PT INR D-Dimer POC ABG pH POC ABG pCO2 POC ABG pO2 ABG pO2 ABG HCO3 ABG Base Excess ABG Hemoglobin Oxyhemoglobin Sodium Potassium Chloride Carbon Dioxide BUN Creatinine Glucose POC Glucose 141 H 137 H 142 H Calcium Phosphorus Magnesium ALT Alkaline Phosphatase Total Creatine Kinase CK-MB (CK-2) Rel Index Troponin T Albumin LDL Cholesterol Direct PTH Intact Salicylates Acetaminophen Crossmatch 04/23/19 04/23/19 04/23/19 05:53 08:13 11:58 WBC RBC Hgb Hct MCV MCH MCHC RDW Plt Count Lymph % (Auto) Stone % (Auto) Eos % (Auto) Lymph # Stone # Eos # Seg Neutrophils % Seg Neuts % (Manual) Lymphocytes % (Manual) Eosinophils % (Manual) Seg Neutrophils # Lymphocytes # (Manual) Eosinophils # (Manual) PT INR D-Dimer POC ABG pH POC ABG pCO2 POC ABG pO2 ABG pO2 ABG HCO3 ABG Base Excess ABG Hemoglobin Oxyhemoglobin Sodium Potassium Chloride Carbon Dioxide BUN Creatinine Glucose POC Glucose 132 H 154 H 165 H Calcium Phosphorus Magnesium ALT Alkaline Phosphatase Total Creatine Kinase CK-MB (CK-2) Rel Index Troponin T Albumin LDL Cholesterol Direct PTH Intact Salicylates Acetaminophen Crossmatch 04/23/19 04/24/19 04/24/19 16:28 00:28 07:00 WBC RBC Hgb Hct MCV MCH MCHC RDW Plt Count Lymph % (Auto) Stone % (Auto) Eos % (Auto) Lymph # Stone # Eos # Seg Neutrophils % Seg Neuts % (Manual) Lymphocytes % (Manual) Eosinophils % (Manual) Seg Neutrophils # Lymphocytes # (Manual) Eosinophils # (Manual) PT INR D-Dimer POC ABG pH POC ABG pCO2 POC ABG pO2 ABG pO2 ABG HCO3 ABG Base Excess ABG Hemoglobin Oxyhemoglobin Sodium Potassium Chloride Carbon Dioxide BUN Creatinine Glucose POC Glucose 136 H 140 H 141 H Calcium Phosphorus Magnesium ALT Alkaline Phosphatase Total Creatine Kinase CK-MB (CK-2) Rel Index Troponin T Albumin LDL Cholesterol Direct PTH Intact Salicylates Acetaminophen Crossmatch 04/24/19 04/24/19 04/25/19 12:38 18:57 00:38 WBC RBC Hgb Hct MCV MCH MCHC RDW Plt Count Lymph % (Auto) Stone % (Auto) Eos % (Auto) Lymph # Stone # Eos # Seg Neutrophils % Seg Neuts % (Manual) Lymphocytes % (Manual) Eosinophils % (Manual) Seg Neutrophils # Lymphocytes # (Manual) Eosinophils # (Manual) PT INR D-Dimer POC ABG pH POC ABG pCO2 POC ABG pO2 ABG pO2 ABG HCO3 ABG Base Excess ABG Hemoglobin Oxyhemoglobin Sodium Potassium Chloride Carbon Dioxide BUN Creatinine Glucose POC Glucose 152 H 166 H 128 H Calcium Phosphorus Magnesium ALT Alkaline Phosphatase Total Creatine Kinase CK-MB (CK-2) Rel Index Troponin T Albumin LDL Cholesterol Direct PTH Intact Salicylates Acetaminophen Crossmatch 04/25/19 04/25/19 04/25/19 05:44 13:43 18:34 WBC RBC Hgb Hct MCV MCH MCHC RDW Plt Count Lymph % (Auto) Stone % (Auto) Eos % (Auto) Lymph # Stone # Eos # Seg Neutrophils % Seg Neuts % (Manual) Lymphocytes % (Manual) Eosinophils % (Manual) Seg Neutrophils # Lymphocytes # (Manual) Eosinophils # (Manual) PT INR D-Dimer POC ABG pH POC ABG pCO2 POC ABG pO2 ABG pO2 ABG HCO3 ABG Base Excess ABG Hemoglobin Oxyhemoglobin Sodium Potassium Chloride Carbon Dioxide BUN Creatinine Glucose POC Glucose 153 H 186 H 124 H Calcium Phosphorus Magnesium ALT Alkaline Phosphatase Total Creatine Kinase CK-MB (CK-2) Rel Index Troponin T Albumin LDL Cholesterol Direct PTH Intact Salicylates Acetaminophen Crossmatch 04/26/19 04/26/19 04/26/19 00:59 05:52 10:12 WBC 11.5 H RBC 2.84 L Hgb 7.4 L Hct 23.3 L MCV 82 L MCH 26 L MCHC RDW 20.3 H Plt Count Lymph % (Auto) 7.5 L Stone % (Auto) 7.5 H Eos % (Auto) 5.3 H Lymph # 0.9 L Stone # 0.9 H Eos # 0.6 H Seg Neutrophils % 79.2 H Seg Neuts % (Manual) Lymphocytes % (Manual) Eosinophils % (Manual) Seg Neutrophils # 9.1 H Lymphocytes # (Manual) Eosinophils # (Manual) PT INR D-Dimer POC ABG pH POC ABG pCO2 POC ABG pO2 ABG pO2 ABG HCO3 ABG Base Excess ABG Hemoglobin Oxyhemoglobin Sodium Potassium Chloride Carbon Dioxide BUN Creatinine Glucose POC Glucose 163 H 146 H Calcium Phosphorus Magnesium ALT Alkaline Phosphatase Total Creatine Kinase CK-MB (CK-2) Rel Index Troponin T Albumin LDL Cholesterol Direct PTH Intact Salicylates Acetaminophen Crossmatch 04/26/19 04/26/19 04/26/19 10:12 12:15 19:00 WBC RBC Hgb Hct MCV MCH MCHC RDW Plt Count Lymph % (Auto) Stone % (Auto) Eos % (Auto) Lymph # Stone # Eos # Seg Neutrophils % Seg Neuts % (Manual) Lymphocytes % (Manual) Eosinophils % (Manual) Seg Neutrophils # Lymphocytes # (Manual) Eosinophils # (Manual) PT INR D-Dimer POC ABG pH POC ABG pCO2 POC ABG pO2 ABG pO2 ABG HCO3 ABG Base Excess ABG Hemoglobin Oxyhemoglobin Sodium 130 L Potassium Chloride 87.4 L Carbon Dioxide BUN 93 H Creatinine 4.2 H Glucose 140 H POC Glucose 155 H 179 H Calcium Phosphorus Magnesium ALT Alkaline Phosphatase Total Creatine Kinase CK-MB (CK-2) Rel Index Troponin T Albumin LDL Cholesterol Direct PTH Intact Salicylates Acetaminophen Crossmatch 04/27/19 04/27/19 04/27/19 00:23 06:34 17:13 WBC RBC Hgb Hct MCV MCH MCHC RDW Plt Count Lymph % (Auto) Stone % (Auto) Eos % (Auto) Lymph # Stone # Eos # Seg Neutrophils % Seg Neuts % (Manual) Lymphocytes % (Manual) Eosinophils % (Manual) Seg Neutrophils # Lymphocytes # (Manual) Eosinophils # (Manual) PT INR D-Dimer POC ABG pH POC ABG pCO2 POC ABG pO2 ABG pO2 ABG HCO3 ABG Base Excess ABG Hemoglobin Oxyhemoglobin Sodium Potassium Chloride Carbon Dioxide BUN Creatinine Glucose POC Glucose 158 H 140 H 152 H Calcium Phosphorus Magnesium ALT Alkaline Phosphatase Total Creatine Kinase CK-MB (CK-2) Rel Index Troponin T Albumin LDL Cholesterol Direct PTH Intact Salicylates Acetaminophen Crossmatch 04/27/19 04/28/19 04/28/19 23:50 05:18 11:37 WBC RBC Hgb Hct MCV MCH MCHC RDW Plt Count Lymph % (Auto) Stone % (Auto) Eos % (Auto) Lymph # Stone # Eos # Seg Neutrophils % Seg Neuts % (Manual) Lymphocytes % (Manual) Eosinophils % (Manual) Seg Neutrophils # Lymphocytes # (Manual) Eosinophils # (Manual) PT INR D-Dimer POC ABG pH POC ABG pCO2 POC ABG pO2 ABG pO2 ABG HCO3 ABG Base Excess ABG Hemoglobin Oxyhemoglobin Sodium Potassium Chloride Carbon Dioxide BUN Creatinine Glucose POC Glucose 160 H 145 H 177 H Calcium Phosphorus Magnesium ALT Alkaline Phosphatase Total Creatine Kinase CK-MB (CK-2) Rel Index Troponin T Albumin LDL Cholesterol Direct PTH Intact Salicylates Acetaminophen Crossmatch 04/28/19 04/28/19 04/29/19 18:31 23:47 05:50 WBC RBC Hgb Hct MCV MCH MCHC RDW Plt Count Lymph % (Auto) Stone % (Auto) Eos % (Auto) Lymph # Stone # Eos # Seg Neutrophils % Seg Neuts % (Manual) Lymphocytes % (Manual) Eosinophils % (Manual) Seg Neutrophils # Lymphocytes # (Manual) Eosinophils # (Manual) PT INR D-Dimer POC ABG pH POC ABG pCO2 POC ABG pO2 ABG pO2 ABG HCO3 ABG Base Excess ABG Hemoglobin Oxyhemoglobin Sodium Potassium Chloride Carbon Dioxide BUN Creatinine Glucose POC Glucose 153 H 117 H 177 H Calcium Phosphorus Magnesium ALT Alkaline Phosphatase Total Creatine Kinase CK-MB (CK-2) Rel Index Troponin T Albumin LDL Cholesterol Direct PTH Intact Salicylates Acetaminophen Crossmatch 04/29/19 04/30/19 04/30/19 17:04 01:02 06:42 WBC RBC Hgb Hct MCV MCH MCHC RDW Plt Count Lymph % (Auto) Stone % (Auto) Eos % (Auto) Lymph # Stone # Eos # Seg Neutrophils % Seg Neuts % (Manual) Lymphocytes % (Manual) Eosinophils % (Manual) Seg Neutrophils # Lymphocytes # (Manual) Eosinophils # (Manual) PT INR D-Dimer POC ABG pH POC ABG pCO2 POC ABG pO2 ABG pO2 ABG HCO3 ABG Base Excess ABG Hemoglobin Oxyhemoglobin Sodium Potassium Chloride Carbon Dioxide BUN Creatinine Glucose POC Glucose 205 H 143 H 145 H Calcium Phosphorus Magnesium ALT Alkaline Phosphatase Total Creatine Kinase CK-MB (CK-2) Rel Index Troponin T Albumin LDL Cholesterol Direct PTH Intact Salicylates Acetaminophen Crossmatch 04/30/19 04/30/19 04/30/19 11:31 18:12 23:38 WBC RBC Hgb Hct MCV MCH MCHC RDW Plt Count Lymph % (Auto) Stone % (Auto) Eos % (Auto) Lymph # Stone # Eos # Seg Neutrophils % Seg Neuts % (Manual) Lymphocytes % (Manual) Eosinophils % (Manual) Seg Neutrophils # Lymphocytes # (Manual) Eosinophils # (Manual) PT INR D-Dimer POC ABG pH POC ABG pCO2 POC ABG pO2 ABG pO2 ABG HCO3 ABG Base Excess ABG Hemoglobin Oxyhemoglobin Sodium Potassium Chloride Carbon Dioxide BUN Creatinine Glucose POC Glucose 162 H 117 H 139 H Calcium Phosphorus Magnesium ALT Alkaline Phosphatase Total Creatine Kinase CK-MB (CK-2) Rel Index Troponin T Albumin LDL Cholesterol Direct PTH Intact Salicylates Acetaminophen Crossmatch 05/01/19 05/01/19 05/02/19 06:06 23:41 05:59 WBC RBC Hgb Hct MCV MCH MCHC RDW Plt Count Lymph % (Auto) Stone % (Auto) Eos % (Auto) Lymph # Stone # Eos # Seg Neutrophils % Seg Neuts % (Manual) Lymphocytes % (Manual) Eosinophils % (Manual) Seg Neutrophils # Lymphocytes # (Manual) Eosinophils # (Manual) PT INR D-Dimer POC ABG pH POC ABG pCO2 POC ABG pO2 ABG pO2 ABG HCO3 ABG Base Excess ABG Hemoglobin Oxyhemoglobin Sodium Potassium Chloride Carbon Dioxide BUN Creatinine Glucose POC Glucose 150 H 140 H 130 H Calcium Phosphorus Magnesium ALT Alkaline Phosphatase Total Creatine Kinase CK-MB (CK-2) Rel Index Troponin T Albumin LDL Cholesterol Direct PTH Intact Salicylates Acetaminophen Crossmatch 05/02/19 05/02/19 05/03/19 11:55 18:10 00:15 WBC RBC Hgb Hct MCV MCH MCHC RDW Plt Count Lymph % (Auto) Stone % (Auto) Eos % (Auto) Lymph # Stone # Eos # Seg Neutrophils % Seg Neuts % (Manual) Lymphocytes % (Manual) Eosinophils % (Manual) Seg Neutrophils # Lymphocytes # (Manual) Eosinophils # (Manual) PT INR D-Dimer POC ABG pH POC ABG pCO2 POC ABG pO2 ABG pO2 ABG HCO3 ABG Base Excess ABG Hemoglobin Oxyhemoglobin Sodium Potassium Chloride Carbon Dioxide BUN Creatinine Glucose POC Glucose 146 H 141 H 145 H Calcium Phosphorus Magnesium ALT Alkaline Phosphatase Total Creatine Kinase CK-MB (CK-2) Rel Index Troponin T Albumin LDL Cholesterol Direct PTH Intact Salicylates Acetaminophen Crossmatch 05/03/19 05/03/19 05/03/19 05:49 05:49 06:01 WBC RBC 2.84 L Hgb 7.2 L Hct 22.9 L MCV 81 L MCH 26 L MCHC RDW 20.6 H Plt Count 456 H Lymph % (Auto) 11.8 L Stone % (Auto) Eos % (Auto) 10.6 H Lymph # 1.1 L Stone # Eos # 1.0 H Seg Neutrophils % 70.4 H Seg Neuts % (Manual) Lymphocytes % (Manual) Eosinophils % (Manual) Seg Neutrophils # Lymphocytes # (Manual) Eosinophils # (Manual) PT INR D-Dimer POC ABG pH POC ABG pCO2 POC ABG pO2 ABG pO2 ABG HCO3 ABG Base Excess ABG Hemoglobin Oxyhemoglobin Sodium Potassium Chloride 94.8 L Carbon Dioxide BUN 66 H Creatinine 3.6 H Glucose 129 H POC Glucose 135 H Calcium Phosphorus Magnesium ALT Alkaline Phosphatase Total Creatine Kinase CK-MB (CK-2) Rel Index Troponin T Albumin LDL Cholesterol Direct PTH Intact Salicylates Acetaminophen Crossmatch 05/03/19 05/03/19 05/04/19 11:04 18:40 00:06 WBC RBC Hgb Hct MCV MCH MCHC RDW Plt Count Lymph % (Auto) Stone % (Auto) Eos % (Auto) Lymph # Stone # Eos # Seg Neutrophils % Seg Neuts % (Manual) Lymphocytes % (Manual) Eosinophils % (Manual) Seg Neutrophils # Lymphocytes # (Manual) Eosinophils # (Manual) PT INR D-Dimer POC ABG pH POC ABG pCO2 POC ABG pO2 ABG pO2 ABG HCO3 ABG Base Excess ABG Hemoglobin Oxyhemoglobin Sodium Potassium Chloride Carbon Dioxide BUN Creatinine Glucose POC Glucose 191 H 167 H 137 H Calcium Phosphorus Magnesium ALT Alkaline Phosphatase Total Creatine Kinase CK-MB (CK-2) Rel Index Troponin T Albumin LDL Cholesterol Direct PTH Intact Salicylates Acetaminophen Crossmatch 05/04/19 05/04/19 05/04/19 06:44 07:30 07:30 WBC 15.8 H RBC 2.74 L Hgb 6.7 L Hct 22.2 L MCV 81 L MCH 24 L MCHC 30 L RDW 20.4 H Plt Count 450 H Lymph % (Auto) 5.1 L Stone % (Auto) Eos % (Auto) Lymph # 0.8 L Stone # Eos # 0.6 H Seg Neutrophils % 86.3 H Seg Neuts % (Manual) Lymphocytes % (Manual) Eosinophils % (Manual) Seg Neutrophils # 13.6 H Lymphocytes # (Manual) Eosinophils # (Manual) PT INR D-Dimer POC ABG pH POC ABG pCO2 POC ABG pO2 ABG pO2 ABG HCO3 ABG Base Excess ABG Hemoglobin Oxyhemoglobin Sodium Potassium Chloride 95.2 L Carbon Dioxide BUN 92 H Creatinine 4.8 H Glucose 139 H POC Glucose 153 H Calcium Phosphorus Magnesium ALT Alkaline Phosphatase Total Creatine Kinase CK-MB (CK-2) Rel Index Troponin T Albumin LDL Cholesterol Direct PTH Intact Salicylates Acetaminophen Crossmatch 05/04/19 05/04/19 05/05/19 12:55 16:31 01:02 WBC RBC Hgb Hct MCV MCH MCHC RDW Plt Count Lymph % (Auto) Stone % (Auto) Eos % (Auto) Lymph # Stone # Eos # Seg Neutrophils % Seg Neuts % (Manual) Lymphocytes % (Manual) Eosinophils % (Manual) Seg Neutrophils # Lymphocytes # (Manual) Eosinophils # (Manual) PT INR D-Dimer POC ABG pH POC ABG pCO2 POC ABG pO2 ABG pO2 ABG HCO3 ABG Base Excess ABG Hemoglobin Oxyhemoglobin Sodium Potassium Chloride Carbon Dioxide BUN Creatinine Glucose POC Glucose 169 H 171 H Calcium Phosphorus Magnesium ALT Alkaline Phosphatase Total Creatine Kinase CK-MB (CK-2) Rel Index Troponin T Albumin LDL Cholesterol Direct PTH Intact Salicylates Acetaminophen Crossmatch See Detail 05/05/19 05/05/19 05/05/19 05:26 05:36 11:48 WBC 12.6 H RBC 2.73 L Hgb 6.9 L Hct 22.3 L MCV 82 L MCH 25 L MCHC 31 L RDW 21.0 H Plt Count Lymph % (Auto) 8.9 L Stone % (Auto) Eos % (Auto) Lymph # 1.1 L Stone # 0.9 H Eos # Seg Neutrophils % 80.7 H Seg Neuts % (Manual) Lymphocytes % (Manual) Eosinophils % (Manual) Seg Neutrophils # 10.2 H Lymphocytes # (Manual) Eosinophils # (Manual) PT INR D-Dimer POC ABG pH POC ABG pCO2 POC ABG pO2 ABG pO2 ABG HCO3 ABG Base Excess ABG Hemoglobin Oxyhemoglobin Sodium Potassium Chloride Carbon Dioxide BUN Creatinine Glucose POC Glucose 153 H 173 H Calcium Phosphorus Magnesium ALT Alkaline Phosphatase Total Creatine Kinase CK-MB (CK-2) Rel Index Troponin T Albumin LDL Cholesterol Direct PTH Intact Salicylates Acetaminophen Crossmatch 05/05/19 05/06/19 05/06/19 16:42 02:24 06:12 WBC RBC Hgb Hct MCV MCH MCHC RDW Plt Count Lymph % (Auto) Stone % (Auto) Eos % (Auto) Lymph # Stone # Eos # Seg Neutrophils % Seg Neuts % (Manual) Lymphocytes % (Manual) Eosinophils % (Manual) Seg Neutrophils # Lymphocytes # (Manual) Eosinophils # (Manual) PT INR D-Dimer POC ABG pH POC ABG pCO2 POC ABG pO2 ABG pO2 ABG HCO3 ABG Base Excess ABG Hemoglobin Oxyhemoglobin Sodium Potassium Chloride Carbon Dioxide BUN Creatinine Glucose POC Glucose 126 H 138 H 151 H Calcium Phosphorus Magnesium ALT Alkaline Phosphatase Total Creatine Kinase CK-MB (CK-2) Rel Index Troponin T Albumin LDL Cholesterol Direct PTH Intact Salicylates Acetaminophen Crossmatch 05/06/19 05/06/19 05/06/19 08:15 16:48 23:16 WBC 11.8 H RBC 2.72 L Hgb 6.7 L Hct 21.7 L MCV 80 L MCH 25 L MCHC 31 L RDW 20.9 H Plt Count Lymph % (Auto) Stone % (Auto) Eos % (Auto) Lymph # Stone # Eos # Seg Neutrophils % Seg Neuts % (Manual) Lymphocytes % (Manual) Eosinophils % (Manual) Seg Neutrophils # Lymphocytes # (Manual) Eosinophils # (Manual) PT INR D-Dimer POC ABG pH POC ABG pCO2 POC ABG pO2 ABG pO2 ABG HCO3 ABG Base Excess ABG Hemoglobin Oxyhemoglobin Sodium Potassium Chloride Carbon Dioxide BUN Creatinine Glucose POC Glucose 153 H 143 H Calcium Phosphorus Magnesium ALT Alkaline Phosphatase Total Creatine Kinase CK-MB (CK-2) Rel Index Troponin T Albumin LDL Cholesterol Direct PTH Intact Salicylates Acetaminophen Crossmatch 05/07/19 05/07/19 05/07/19 06:00 06:30 12:33 WBC RBC 3.53 L Hgb 9.1 L Hct 28.6 L D MCV 81 L MCH 26 L MCHC RDW 19.1 H Plt Count Lymph % (Auto) 9.6 L Stone % (Auto) Eos % (Auto) 4.8 H Lymph # 1.1 L Stone # Eos # 0.5 H Seg Neutrophils % 77.8 H Seg Neuts % (Manual) Lymphocytes % (Manual) Eosinophils % (Manual) Seg Neutrophils # 8.6 H Lymphocytes # (Manual) Eosinophils # (Manual) PT INR D-Dimer POC ABG pH POC ABG pCO2 POC ABG pO2 ABG pO2 ABG HCO3 ABG Base Excess ABG Hemoglobin Oxyhemoglobin Sodium Potassium Chloride Carbon Dioxide BUN Creatinine Glucose POC Glucose 122 H 140 H Calcium Phosphorus Magnesium ALT Alkaline Phosphatase Total Creatine Kinase CK-MB (CK-2) Rel Index Troponin T Albumin LDL Cholesterol Direct PTH Intact Salicylates Acetaminophen Crossmatch Chest x-ray: report reviewed, image reviewed
[2019-05-07] MEDS: risperiDONE 1 MG TAB PO SCH (15:29)
--- NOTE | 2019-05-07 16:13 | Progress Note ---
Assessment and Plan /Acute respiratory failure on mechanical ventilator >96 hrs Likely from pulmonary edema with volume overload from end-stage renal disease a nd underlying CHF Extubated ; history of tracheostomy on T piece Current management , nebulizers, Currently on trach/peg placed on 03/03. Now off vent, cont oxygen supplement, improving, on t piece, nebulizers, pulmonary critical following /-Anemia of chronic disease s/p 5 units of prbc , r/o GI loss - ordered stool for occult blood - negative - monitor h/h /acute on chronic systolic CHF/ Acute pulmonary edema, HD per schedule /Dilated CMP, EF 35-40% Continue diuresis, supportive care /Acute metabolic encephalopathy, resolved, has baseline Dementia. /ESRD on hemodialysis per schedule nephrology following /-Bilateral pleural effusions improved with HD /Permanent atrial fibrillation and flutter and hypercoaguable state Not on anticoagulation because of anemia thrombocytopenia rate control meds optimized /-Diabetes mellitus type 2 Accu-Chek sliding scale coverage Insulin as needed /NSTEMI type 2 , Cardiology following /-Schizophrenia:stable /-Legally blind, supportive care /-hypertension, Monitor BP,'s adjust medications as needed /-Hypokalemia; corrected /-Pulmonary hypertension; continue current management /-Dysphagia s/p PEG tube; PEG tubes per protocol /-Severe malnutrition /hypoalbuminemia with FTT: 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, 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 Brief History: Patient is 63-year-old -[place] male patient from [facility] with multiple co-morbidities including blindness, CVA, CHF, PPM/ICD, loop recorder since 2012 that is MRI compatible, IDDM type 2, sepsis left foot ulcer, afib, ESRD with complications on HD TTS, hypertension, AOCD and GERD who presented to the ED with hypotensive after intubation in the emergency room. diagnosed with fluid overload, pleural effusion. Patient has had recurrent admission in the hospital for similar reason and was recently discharged from the hospital following treatment of Severe Sepsis due to Necrotizing Unstagable sacral decubitus ulcer with ostemomylitis, has rec eived multiple courses of broad spectrum abx. Admitted for Acute hypoxic respiratory failure, status post intubation and ventilatory support, now off vent, on T-piece waiting on placement Hospitalist Physical Patient is on trach and PEG, ON 5L The patient appeared well nourished and normally developed. Vital signs as documented. Head exam is unremarkable. No scleral icterus . Neck is without jugular venous distension, thyromegaly, or carotid bruits. Lungs are clear to auscultation. Cardiac exam reveals regular rate and Rhythm. First and second heart sounds normal. No murmurs, rubs or gallops. Abdominal exam reveals PEG tube in place, colostomy bag in place. Extremities are nonedematous and both femoral and pedal pulses are normal. 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 Subjective Date of service: 05/07/19 Principal diagnosis: Respiratory failure, acute on chronic systolic HF, ESRD Interval history: Patient seen and examined No acute event overnight Patient remained on trach, no family at bedside Discussed with RN and case management about plan of care and discharge planning Objective - Constitutional Vitals: Vital Signs - 12hr 05/07/19 05/07/19 05/07/19 08:16 12:03 14:00 Temperature 97.8 F Pulse Rate 97 H 98 H Pulse Rate [ 90 Anterior Bilateral Throughout] Respiratory 20 18 Rate Respiratory 18 Rate [Anterior Bilateral Throughout] Blood Pressure 126/68 116/65 O2 Sat by Pulse 100 92 Oximetry O2 Sat by Pulse Oximetry [ Assessment] 05/07/19 14:32 Temperature Pulse Rate Pulse Rate [ Anterior Bilateral Throughout] Respiratory Rate Respiratory Rate [Anterior Bilateral Throughout] Blood Pressure O2 Sat by Pulse Oximetry O2 Sat by Pulse 98 Oximetry [ Assessment] - Labs CBC & Chem 7: 05/07/19 06:30 05/04/19 07:30 Labs: Abnormal lab results 05/06/19 05/06/19 05/07/19 Range/Units 16:48 23:16 06:00 RBC (3.65-5.03) M/mm3 Hgb (11.8-15.2) gm/dl Hct (35.5-45.6) % MCV (84-94) fl MCH (28-32) pg RDW (13.2-15.2) % Lymph % (Auto) (13.4-35.0) % Eos % (Auto) (0.0-4.3) % Lymph # (1.2-5.4) K/mm3 Eos # (0.0-0.4) K/mm3 Seg Neutrophils % (40.0-70.0) % Seg Neutrophils # (1.8-7.7) K/mm3 POC Glucose 153 H 143 H 122 H (70-105) 05/07/19 05/07/19 Range/Units 06:30 12:33 RBC 3.53 L (3.65-5.03) M/mm3 Hgb 9.1 L (11.8-15.2) gm/dl Hct 28.6 L D (35.5-45.6) % MCV 81 L (84-94) fl MCH 26 L (28-32) pg RDW 19.1 H (13.2-15.2) % Lymph % (Auto) 9.6 L (13.4-35.0) % Eos % (Auto) 4.8 H (0.0-4.3) % Lymph # 1.1 L (1.2-5.4) K/mm3 Eos # 0.5 H (0.0-0.4) K/mm3 Seg Neutrophils % 77.8 H (40.0-70.0) % Seg Neutrophils # 8.6 H (1.8-7.7) K/mm3 POC Glucose 140 H (70-105)
[2019-05-08] MEDS: INSULIN REGULAR, HUMAN 100 UNITS/1 ML SUB-Q SCH ×4 (03:00→18:30)
[2019-05-08 05:58] LABS: Basophils # (Auto) 0.2 K/mm3 (0.0-0.1); Basophils % (Auto) 1.9 % (0.0-1.8); Eosinophils # (Auto) 0.4 K/mm3 (0.0-0.4); Eosinophils % (Auto) 3.6 % (0.0-4.3); Hematocrit 29.1 % (35.5-45.6); Hemoglobin 9.1 gm/dl (11.8-15.2); Lymphocytes # (Auto) 0.8 K/mm3 (1.2-5.4); Lymphocytes % (Auto) 6.6 % (13.4-35.0); Mean Corpuscular HGB Conc 31 % (32-34); Mean Corpuscular Volume 82 fl (84-94); Monocytes # (Auto) 0.6 K/mm3 (0.0-0.8); Monocytes % (Auto) 5.3 % (0.0-7.3); Platelet Count 410 K/mm3 (140-440); Red Blood Count 3.54 M/mm3 (3.65-5.03); Red Cell Distribution Width 19.6 % (13.2-15.2)
[2019-05-08] MEDS: IPRATROPIUM/ALBUTEROL SULFATE 3 ML AMPUL.NEB IH SCH ×3 (07:44→21:07)
--- NOTE | 2019-05-08 11:57 | Progress Note ---
Subjective Principal diagnosis: Respiratory failure, acute on chronic systolic HF, ESRD Interval history: Patient was seen today for follow-up of multiple renal related issues on hemodialysis Saturday seen on hemodialysis Appears to be very ill, cachectic Currently on oxygen/ with his trach mentation fluctuates Past medical history: Reviewed Family history: Reviewed Social history: Reviewed Allergies: Reviewed Physical examination: Vitals: Reviewed HEENT: No pallor or icterus oral mucosa moist Neck: Supple no JVD no thyromegaly Chest: Bilateral clear to auscultation anteriorly Heart: Regular rate and rhythm S1-S2 heard no S3-S4 Abdomen: Soft nontender no voluntary guarding rigidity rebound Extremity: Dry skin less than 1+ peripheral edema Labs and x-rays: Reviewed from today Assessment and plan End-stage renal disease currently on maintenance hemodialysis Saturday and Saturday seen and supervised on hemodialysis, overall doing very poorly Status post packed red blood cell transfusion hemoglobin currently holding at 9.1 Continue with hemodialysis treatment 3 times a week Mortality risk: Very high Continue with supportive care Leukocytosis: Blood cultures negative as of Systolic heart failure, dilated cardiomyopathy, pulmonary hypertension, atelectasis, pneumonia Secondary hyperparathyroidism: Check phosphorus and PTH level periodically Overall prognosis very poor/ patient should be considered for hospice in my opinion We'll continue to follow and make recommendation for renal standpoint Objective - Vital Signs Vital signs: Vital Signs - 12hr 05/08/19 05/08/19 05/08/19 02:18 05:12 05:13 Temperature 98.1 F Pulse Rate 85 Pulse Rate [ Anterior Bilateral Throughout] Respiratory 18 Rate Respiratory Rate [Anterior Bilateral Throughout] Blood Pressure 137/63 O2 Sat by Pulse 100 Oximetry O2 Sat by Pulse Oximetry [ Anterior Bilateral Throughout] O2 Sat by Pulse 99 Oximetry [ Assessment] 05/08/19 05/08/19 05/08/19 07:45 07:46 07:52 Temperature 97.5 F L Pulse Rate Pulse Rate [ 88 Anterior Bilateral Throughout] Respiratory 18 Rate Respiratory 18 Rate [Anterior Bilateral Throughout] Blood Pressure 133/62 O2 Sat by Pulse 95 Oximetry O2 Sat by Pulse Oximetry [ Anterior Bilateral Throughout] O2 Sat by Pulse 96 Oximetry [ Assessment] 05/08/19 05/08/19 05/08/19 09:34 09:45 09:51 Temperature 99.7 F H Pulse Rate 82 84 Pulse Rate [ Anterior Bilateral Throughout] Respiratory 15 20 Rate Respiratory Rate [Anterior Bilateral Throughout] Blood Pressure 127/63 123/63 O2 Sat by Pulse 98 Oximetry O2 Sat by Pulse 100 Oximetry [ Anterior Bilateral Throughout] O2 Sat by Pulse Oximetry [ Assessment] 05/08/19 05/08/19 05/08/19 10:00 10:15 10:30 Temperature Pulse Rate 84 88 91 H Pulse Rate [ Anterior Bilateral Throughout] Respiratory Rate Respiratory Rate [Anterior Bilateral Throughout] Blood Pressure 126/67 111/64 102/67 O2 Sat by Pulse Oximetry O2 Sat by Pulse Oximetry [ Anterior Bilateral Throughout] O2 Sat by Pulse Oximetry [ Assessment] 05/08/19 05/08/19 05/08/19 10:45 11:00 11:15 Temperature Pulse Rate 95 H 95 H 96 H Pulse Rate [ Anterior Bilateral Throughout] Respiratory Rate Respiratory Rate [Anterior Bilateral Throughout] Blood Pressure 93/61 107/59 98/63 O2 Sat by Pulse Oximetry O2 Sat by Pulse Oximetry [ Anterior Bilateral Throughout] O2 Sat by Pulse Oximetry [ Assessment] 05/08/19 05/08/19 11:30 11:45 Temperature Pulse Rate 95 H 97 H Pulse Rate [ Anterior Bilateral Throughout] Respiratory Rate Respiratory Rate [Anterior Bilateral Throughout] Blood Pressure 93/61 96/62 O2 Sat by Pulse Oximetry O2 Sat by Pulse Oximetry [ Anterior Bilateral Throughout] O2 Sat by Pulse Oximetry [ Assessment] - Lab 05/08/19 05:10 05/04/19 07:30 Most recent lab results ABG pH 7.424 pH Units (7.350-7.450) 03/19/19 04:23 ABG pCO2 48.0 mm Hg 03/19/19 04:23 ABG pO2 78.3 mm Hg (80.0-90.0) L 03/19/19 04:23 ABG HCO3 30.7 mmol/L (20.0-26.0) H 03/19/19 04:23 ABG O2 Saturation 97.0 % (95.0-99.0) 03/19/19 04:23 Calcium 10.2 mg/dL (8.4-10.2) 05/04/19 07:30 Phosphorus 4.30 mg/dL (2.5-4.5) D 03/31/19 10:26 Magnesium 2.70 mg/dL (1.7-2.3) H 03/30/19 10:13 Medications & Allergies - Medications Allergies/Adverse Reactions: Allergies haloperidol [From Haldol] Adverse Reaction (Verified 03/13/18 12:10) Unknown haloperidol lactate [From Haldol] Adverse Reaction (Verified 03/13/18 12:10) Unknown Home Medications: Home Medications Medication Instructions Recorded Confirmed Last Taken Type risperiDONE [RisperDAL] 1 mg PO QAM 03/13/18 02/21/19 Unknown History Sertraline [Zoloft] 100 mg PO QDAY 08/26/18 02/21/19 Unknown History Polyethylene Glycol 3350 [Miralax 17 gm PO QDAY #30 packet 11/05/18 02/21/19 Unknown Rx 3350] Aspirin EC [Halfprin EC] 81 mg PO DAILY #30 11/19/18 02/21/19 Unknown Rx Docusate Sodium [Colace CAP] 100 mg PO BID #60 11/19/18 02/21/19 Unknown Rx Folic Acid [Folvite] 1 mg PO DAILY #30 tab 11/19/18 02/21/19 Unknown Rx Famotidine [Pepcid] 20 mg PO DAILY tablet 12/08/18 02/21/19 Unknown Rx Gabapentin [Neurontin] 100 mg PO QHS capsule 12/08/18 02/21/19 Unknown Rx Metoprolol [Lopressor TAB] 50 mg PO BID 30 Days tablet 12/08/18 02/21/19 Unknown Rx Sevelamer Carbonate [Renvela] 800 mg PO TIDWM tablet 12/08/18 02/21/19 Unknown Rx hydrALAZINE [Apresoline TAB] 100 mg PO Q8HR #120 tablet 12/08/18 02/21/19 Unknown Rx Acetaminophen [Acetaminophen TAB] 650 mg PO Q12H PRN 12/15/18 02/21/19 Unknown History Glucagon,Human Recombinant 1 mg IJ Q15MIN PRN 12/15/18 02/21/19 Unknown History [Glucagon Emergency Kit] Insulin Aspart [NovoLOG 100 See Protocol SQ QWEEK 12/15/18 02/21/19 Unknown History UNITS/ML VIAL] Active Medications: Generic Name Dose Route Start Last Admin Trade Name Freq PRN Reason Stop Dose Admin Albuterol/Ipratropium 1 ampul 02/24/19 20:00 05/08/19 07:44 Duoneb *Not For Prn Use* IH 1 ampul TIDRT SANCHEZ Administration Lipase/Protease/Amylase 1 each 04/10/19 15:16 Pancrejewel Barrientos 10,500 Unit FEEDTUBE PRN PRN For Clogged Feeding Tube Epoetin Solitario 20,000 unit 03/24/19 11:17 05/04/19 13:15 Procrit IV 20,000 unit UMA PRN Administration hemodialysis Famotidine 20 mg 02/23/19 10:00 05/07/19 10:29 Pepcid PO 20 mg DAILY SANCHEZ Administration Insulin Human Regular 0 units 02/26/19 12:00 05/08/19 06:20 Humulin R SUB-Q 2 units Q6HR SANCHEZ Administration Protocol Metoprolol Tartrate 2.5 mg 02/28/19 12:06 03/15/19 05:15 Lopressor IV 2.5 mg Q4HR PRN Administration Tachycardia Risperidone 1 mg 02/25/19 13:00 05/07/19 15:29 Risperdal PO 1 mg DAILY SANCHEZ Administration Sertraline HCl 100 mg 02/25/19 13:00 05/07/19 10:30 Zoloft PO 100 mg DAILY SANCHEZ Administration Simple Syrup 15 ml 04/10/19 15:16 Simple Syrup FEEDTUBE PRN PRN Hypoglycemia Simple Syrup 30 ml 04/10/19 15:16 Simple Syrup FEEDTUBE PRN PRN Hypoglycemia Sodium Bicarbonate 325 mg 04/10/19 15:16 Sodium Bicarbonate FEEDTUBE PRN PRN For Clogged Feeding Tube Sodium Hypochlorite 1 applic 04/01/19 13:00 05/07/19 21:11 Dakin's Half Strength TP 1 applicatio BID SANCHEZ Administration
[2019-05-08] MEDS ORDERED: SODIUM CHLORIDE*PRIMING MACHINE ONLY FOR DIALYSIS MC ONE (11:58)
--- NOTE | 2019-05-08 12:29 | Progress Note ---
Assessment and Plan /Acute respiratory failure on mechanical ventilator >96 hrs Likely from pulmonary edema with volume overload from end-stage renal disease a nd underlying CHF Extubated ; history of tracheostomy on T piece Current management , nebulizers, Currently on trach/peg placed on 03/03. Now off vent, cont oxygen supplement, improving, on t piece, nebulizers, pulmonary critical following /-Anemia of chronic disease s/p 5 units of prbc , r/o GI loss - ordered stool for occult blood - negative - monitor h/h /acute on chronic systolic CHF/ Acute pulmonary edema, HD per schedule /Dilated CMP, EF 35-40% Continue diuresis, supportive care /Acute metabolic encephalopathy, resolved, has baseline Dementia. /ESRD on hemodialysis per schedule nephrology following /-Bilateral pleural effusions improved with HD /Permanent atrial fibrillation and flutter and hypercoaguable state Not on anticoagulation because of anemia thrombocytopenia rate control meds optimized /-Diabetes mellitus type 2 Accu-Chek sliding scale coverage Insulin as needed /NSTEMI type 2 , Cardiology following /-Schizophrenia:stable /-Legally blind, supportive care /-hypertension, Monitor BP,'s adjust medications as needed /-Hypokalemia; corrected /-Pulmonary hypertension; continue current management /-Dysphagia s/p PEG tube; PEG tubes per protocol /-Severe malnutrition /hypoalbuminemia with FTT: 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, 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 Brief History: Patient is 63-year-old -Swiss male patient from [facility] with multiple co-morbidities including blindness, CVA, CHF, PPM/ICD, loop recorder since 2012 that is MRI compatible, IDDM type 2, sepsis left foot ulcer, afib, ESRD with complications on HD TTS, hypertension, AOCD and GERD who presented to the ED with hypotensive after intubation in the emergency room. diagnosed with fluid overload, pleural effusion. Patient has had recurrent admission in the hospital for similar reason and was recently discharged from the hospital following treatment of Severe Sepsis due to Necrotizing Unstagable sacral decubitus ulcer with ostemomylitis, has rec eived multiple courses of broad spectrum abx. Admitted for Acute hypoxic respiratory failure, status post intubation and ventilatory support, now off vent, on T-piece waiting on placement Hospitalist Physical Patient is on trach and PEG, ON 5L The patient appeared well nourished and normally developed. Vital signs as documented. Head exam is unremarkable. No scleral icterus . Neck is without jugular venous distension, thyromegaly, or carotid bruits. Lungs are clear to auscultation. Cardiac exam reveals regular rate and Rhythm. First and second heart sounds normal. No murmurs, rubs or gallops. Abdominal exam reveals PEG tube in place, colostomy bag in place. Extremities are nonedematous and both femoral and pedal pulses are normal. 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 Subjective Date of service: 05/08/19 Principal diagnosis: Respiratory failure, acute on chronic systolic HF, ESRD Interval history: Patient seen and examined No acute event overnight Patient remained on trach, no family at bedside Discussed with RN and case management about plan of care and discharge planning Objective - Constitutional Vitals: Vital Signs - 12hr 05/08/19 05/08/19 05/08/19 02:18 05:12 05:13 Temperature 98.1 F Pulse Rate 85 Pulse Rate [ Anterior Bilateral Throughout] Respiratory 18 Rate Respiratory Rate [Anterior Bilateral Throughout] Blood Pressure 137/63 O2 Sat by Pulse 100 Oximetry O2 Sat by Pulse Oximetry [ Anterior Bilateral Throughout] O2 Sat by Pulse 99 Oximetry [ Assessment] 05/08/19 05/08/19 05/08/19 07:45 07:46 07:52 Temperature 97.5 F L Pulse Rate Pulse Rate [ 88 Anterior Bilateral Throughout] Respiratory 18 Rate Respiratory 18 Rate [Anterior Bilateral Throughout] Blood Pressure 133/62 O2 Sat by Pulse 95 Oximetry O2 Sat by Pulse Oximetry [ Anterior Bilateral Throughout] O2 Sat by Pulse 96 Oximetry [ Assessment] 05/08/19 05/08/19 05/08/19 09:34 09:45 09:51 Temperature 99.7 F H Pulse Rate 82 84 Pulse Rate [ Anterior Bilateral Throughout] Respiratory 15 20 Rate Respiratory Rate [Anterior Bilateral Throughout] Blood Pressure 127/63 123/63 O2 Sat by Pulse 98 Oximetry O2 Sat by Pulse 100 Oximetry [ Anterior Bilateral Throughout] O2 Sat by Pulse Oximetry [ Assessment] 05/08/19 05/08/19 05/08/19 10:00 10:15 10:30 Temperature Pulse Rate 84 88 91 H Pulse Rate [ Anterior Bilateral Throughout] Respiratory Rate Respiratory Rate [Anterior Bilateral Throughout] Blood Pressure 126/67 111/64 102/67 O2 Sat by Pulse Oximetry O2 Sat by Pulse Oximetry [ Anterior Bilateral Throughout] O2 Sat by Pulse Oximetry [ Assessment] 05/08/19 05/08/19 05/08/19 10:45 11:00 11:15 Temperature Pulse Rate 95 H 95 H 96 H Pulse Rate [ Anterior Bilateral Throughout] Respiratory Rate Respiratory Rate [Anterior Bilateral Throughout] Blood Pressure 93/61 107/59 98/63 O2 Sat by Pulse Oximetry O2 Sat by Pulse Oximetry [ Anterior Bilateral Throughout] O2 Sat by Pulse Oximetry [ Assessment] 05/08/19 05/08/19 05/08/19 11:30 11:45 12:00 Temperature Pulse Rate 95 H 97 H 99 H Pulse Rate [ Anterior Bilateral Throughout] Respiratory Rate Respiratory Rate [Anterior Bilateral Throughout] Blood Pressure 93/61 96/62 92/61 O2 Sat by Pulse Oximetry O2 Sat by Pulse Oximetry [ Anterior Bilateral Throughout] O2 Sat by Pulse Oximetry [ Assessment] - Labs CBC & Chem 7: 05/08/19 05:10 05/04/19 07:30 Labs: Abnormal lab results 05/07/19 05/07/19 05/07/19 Range/Units 12:33 16:41 23:55 WBC (4.5-11.0) K/mm3 RBC (3.65-5.03) M/mm3 Hgb (11.8-15.2) gm/dl Hct (35.5-45.6) % MCV (84-94) fl MCH (28-32) pg MCHC (32-34) % RDW (13.2-15.2) % Lymph % (Auto) (13.4-35.0) % Baso % (Auto) (0.0-1.8) % Lymph # (1.2-5.4) K/mm3 Baso # (0.0-0.1) K/mm3 Seg Neutrophils % (40.0-70.0) % Seg Neutrophils # (1.8-7.7) K/mm3 POC Glucose 140 H 143 H 153 H (70-105) 05/08/19 05/08/19 Range/Units 05:10 06:09 WBC 11.6 H (4.5-11.0) K/mm3 RBC 3.54 L (3.65-5.03) M/mm3 Hgb 9.1 L (11.8-15.2) gm/dl Hct 29.1 L (35.5-45.6) % MCV 82 L (84-94) fl MCH 26 L (28-32) pg MCHC 31 L (32-34) % RDW 19.6 H (13.2-15.2) % Lymph % (Auto) 6.6 L (13.4-35.0) % Baso % (Auto) 1.9 H (0.0-1.8) % Lymph # 0.8 L (1.2-5.4) K/mm3 Baso # 0.2 H (0.0-0.1) K/mm3 Seg Neutrophils % 82.6 H (40.0-70.0) % Seg Neutrophils # 9.6 H (1.8-7.7) K/mm3 POC Glucose 204 H (70-105)
[2019-05-08] MEDS: EPOETIN ALFA 20,000 UNIT/1 ML INJ IV PRN (13:09)
[2019-05-08] MEDS: FAMOTIDINE 20 MG TAB PO SCH (15:17)
[2019-05-08] MEDS: risperiDONE 1 MG TAB PO SCH (15:17)
[2019-05-08] MEDS: SODIUM HYPOCHLORITE, DAKIN'S 1/2 STRENGTH (0.25%) 473 ML TOPICAL SOLN TP SCH ×2 (15:17→22:06)
[2019-05-08] MEDS: SERTRALINE 100 MG TAB PO SCH (15:17)
--- NOTE | 2019-05-08 17:29 | Progress Note ---
Assessment and Plan Imp: 1. Acute encephalopathy, probably metabolic or toxic, resolved 2. A/C systolic CHF 3. Dilated CMP 4. Pulm HTN 5. ESRD 6. RUL atelectasis, probably mucous plugging -> resolved 7. KEON pneumonia, resolved Rec: 1. Chest PT, Duonebs 2. Tolerating Tpiece; monitor; medically I believe his trach should be permanent for airway management but he may require decannulation for placement in a SNF; he is tolerating PMV perfectly at this point; has a 4 cuffless now; will try capping him for 4 hours QAM -> it remains to be seen if he can clear his airway w/ trach capped; cuffed trach is noted to be at the bedside for emergency purposes 3. Avoid sedatives 4. DVT and GI PPx 5. TFs per PEG 6. HD per renal 7. Agree w/ DNR as per family wishes although hospice is the most appropriate course for him Await placement No family present Subjective Date of service: 05/08/19 Principal diagnosis: Respiratory failure, acute on chronic systolic HF, ESRD Interval history: No events. Mentation near usual poor baseline. Does respond to basic questions but cannot give hx. On 28% per Tpiece. On HD. Tolerating PMV well per ST notes. Has 4 cuffless trach now. Active Medications Albuterol/Ipratropium (Duoneb *Not For Prn Use*) 1 ampul IH TIDRT [facility] [place] Last Admin: 05/08/19 14:58 Dose: 1 ampul Documented by: Lipase/Protease/Amylase ([place] 10,500 Unit) 1 each FEEDTUBE PRN PRN PRN Reason: For Clogged Feeding Tube Epoetin Solitario (Procrit) 20,000 unit IV UMA PRN PRN Reason: hemodialysis Last Admin: 05/08/19 13:09 Dose: 20,000 unit Documented by: Famotidine (Pepcid) 20 mg PO DAILY [facility] [place] Last Admin: 05/08/19 15:17 Dose: Not Given Documented by: Insulin Human Regular (Humulin R) 0 units SUB-Q Q6HR [facility] [place]; Protocol Last Admin: 05/08/19 15:16 Dose: Not Given Documented by: Metoprolol Tartrate (Lopressor) 2.5 mg IV Q4HR PRN PRN Reason: Tachycardia Last Admin: 03/15/19 05:15 Dose: 2.5 mg Documented by: Risperidone (Risperdal) 1 mg PO DAILY [facility] [place] Last Admin: 05/08/19 15:17 Dose: Not Given Documented by: Sertraline HCl (Zoloft) 100 mg PO DAILY [facility] [place] Last Admin: 05/08/19 15:17 Dose: Not Given Documented by: Simple Syrup (Simple Syrup) 15 ml FEEDTUBE PRN PRN PRN Reason: Hypoglycemia Simple Syrup (Simple Syrup) 30 ml FEEDTUBE PRN PRN PRN Reason: Hypoglycemia Sodium Bicarbonate (Sodium Bicarbonate) 325 mg FEEDTUBE PRN PRN PRN Reason: For Clogged Feeding Tube Sodium Hypochlorite (Dakin's Half Strength) 1 applic TP BID [facility] [place] Last Admin: 05/08/19 15:17 Dose: Not Given Documented by: Objective Vital Signs - 12hr 05/08/19 05/08/19 05/08/19 07:45 07:46 07:52 Temperature 97.5 F L Pulse Rate Pulse Rate [ 88 Anterior Bilateral Throughout] Respiratory 18 Rate Respiratory 18 Rate [Anterior Bilateral Throughout] Blood Pressure 133/62 O2 Sat by Pulse 95 Oximetry O2 Sat by Pulse Oximetry [ Anterior Bilateral Throughout] O2 Sat by Pulse 96 Oximetry [ Assessment] 05/08/19 05/08/19 05/08/19 09:34 09:45 09:51 Temperature 99.7 F H Pulse Rate 82 84 Pulse Rate [ Anterior Bilateral Throughout] Respiratory 15 20 Rate Respiratory Rate [Anterior Bilateral Throughout] Blood Pressure 127/63 123/63 O2 Sat by Pulse 98 Oximetry O2 Sat by Pulse 100 Oximetry [ Anterior Bilateral Throughout] O2 Sat by Pulse Oximetry [ Assessment] 05/08/19 05/08/19 05/08/19 10:00 10:15 10:30 Temperature Pulse Rate 84 88 91 H Pulse Rate [ Anterior Bilateral Throughout] Respiratory Rate Respiratory Rate [Anterior Bilateral Throughout] Blood Pressure 126/67 111/64 102/67 O2 Sat by Pulse Oximetry O2 Sat by Pulse Oximetry [ Anterior Bilateral Throughout] O2 Sat by Pulse Oximetry [ Assessment] 05/08/19 05/08/19 05/08/19 10:45 11:00 11:15 Temperature Pulse Rate 95 H 95 H 96 H Pulse Rate [ Anterior Bilateral Throughout] Respiratory Rate Respiratory Rate [Anterior Bilateral Throughout] Blood Pressure 93/61 107/59 98/63 O2 Sat by Pulse Oximetry O2 Sat by Pulse Oximetry [ Anterior Bilateral Throughout] O2 Sat by Pulse Oximetry [ Assessment] 05/08/19 05/08/19 05/08/19 11:30 11:45 12:00 Temperature Pulse Rate 95 H 97 H 99 H Pulse Rate [ Anterior Bilateral Throughout] Respiratory Rate Respiratory Rate [Anterior Bilateral Throughout] Blood Pressure 93/61 96/62 92/61 O2 Sat by Pulse Oximetry O2 Sat by Pulse Oximetry [ Anterior Bilateral Throughout] O2 Sat by Pulse Oximetry [ Assessment] 05/08/19 05/08/19 05/08/19 12:15 12:30 12:45 Temperature Pulse Rate 97 H 93 H 98 H Pulse Rate [ Anterior Bilateral Throughout] Respiratory Rate Respiratory Rate [Anterior Bilateral Throughout] Blood Pressure 96/61 121/62 117/58 O2 Sat by Pulse Oximetry O2 Sat by Pulse Oximetry [ Anterior Bilateral Throughout] O2 Sat by Pulse Oximetry [ Assessment] 05/08/19 05/08/19 05/08/19 13:00 13:15 13:30 Temperature 99.7 F H Pulse Rate 95 H 94 H 89 Pulse Rate [ Anterior Bilateral Throughout] Respiratory 15 Rate Respiratory Rate [Anterior Bilateral Throughout] Blood Pressure 104/66 94/59 101/63 O2 Sat by Pulse Oximetry O2 Sat by Pulse 100 Oximetry [ Anterior Bilateral Throughout] O2 Sat by Pulse Oximetry [ Assessment] 05/08/19 05/08/19 15:00 15:11 Temperature Pulse Rate Pulse Rate [ 84 Anterior Bilateral Throughout] Respiratory Rate Respiratory 18 Rate [Anterior Bilateral Throughout] Blood Pressure O2 Sat by Pulse Oximetry O2 Sat by Pulse Oximetry [ Anterior Bilateral Throughout] O2 Sat by Pulse 97 Oximetry [ Assessment] Constitutional: no acute distress, alert Eyes: non-icteric ENT: oropharynx moist Neck: supple Effort: normal Ascultation: Bilateral: other (coarse BS bilaterally) Percussion: Bilateral: not dull Cardiovascular: regular rate and rhythm (no mrg) Gastrointestinal: normoactive bowel sounds, soft, non-tender, non-distended, other (ostomy in place, brown stool) Extremities: no cyanosis, no edema, pink and warm Neurologic: other (mild weakness LUE, o/w nonfocal) Psychiatric: other (unable to assess) CBC and BMP: 05/08/19 05:10 05/04/19 07:30 ABG, PT/INR, D-dimer: ABG POC ABG pH 7.510 (7.35-7.45) H 03/18/19 06:38 ABG pH 7.424 pH Units (7.350-7.450) 03/19/19 04:23 POC ABG pCO2 38.9 (35-45) 03/18/19 06:38 ABG pCO2 48.0 mm Hg 03/19/19 04:23 POC ABG pO2 164 (80-105) H 03/18/19 06:38 ABG pO2 78.3 mm Hg (80.0-90.0) L 03/19/19 04:23 POC ABG HCO3 31.0 (22-26 mml/L) 03/18/19 06:38 POC ABG Total CO2 32 (23-27mmol/L) 03/18/19 06:38 POC ABG O2 Sat 100 03/18/19 06:38 ABG O2 Saturation 97.0 % (95.0-99.0) 03/19/19 04:23 PT/INR, D-dimer PT 16.3 Sec. (12.2-14.9) H 03/01/19 09:39 INR 1.35 (0.87-1.13) H 03/01/19 09:39 D-Dimer 2987.82 ng/mlDDU (0-234) H 02/22/19 05:54 Abnormal lab findings: Abnormal Labs 02/21/19 02/21/19 02/21/19 18:30 18:30 18:30 WBC RBC 3.26 L Hgb 8.8 L Hct 29.0 L MCV MCH 27 L MCHC 30 L RDW 19.1 H Plt Count Lymph % (Auto) 6.1 L Harvey % (Auto) Eos % (Auto) Baso % (Auto) Lymph # 0.4 L Harvey # Eos # Baso # Seg Neutrophils % 86.2 H Seg Neuts % (Manual) Lymphocytes % (Manual) Eosinophils % (Manual) Seg Neutrophils # Lymphocytes # (Manual) Eosinophils # (Manual) PT INR D-Dimer POC ABG pH POC ABG pCO2 POC ABG pO2 ABG pO2 ABG HCO3 ABG Base Excess ABG Hemoglobin Oxyhemoglobin Sodium 133 L Potassium 3.3 L Chloride 93.1 L Carbon Dioxide 33 H BUN Creatinine Glucose 161 H POC Glucose Calcium Phosphorus Magnesium ALT Alkaline Phosphatase 136 H Total Creatine Kinase 37 L CK-MB (CK-2) Rel Index Troponin T 0.192 H* Albumin 2.4 L LDL Cholesterol Direct 36 L PTH Intact Salicylates Acetaminophen Crossmatch 02/21/19 02/21/19 02/21/19 18:42 20:04 20:04 WBC RBC Hgb Hct MCV MCH MCHC RDW Plt Count Lymph % (Auto) Harvey % (Auto) Eos % (Auto) Baso % (Auto) Lymph # Harvey # Eos # Baso # Seg Neutrophils % Seg Neuts % (Manual) Lymphocytes % (Manual) Eosinophils % (Manual) Seg Neutrophils # Lymphocytes # (Manual) Eosinophils # (Manual) PT INR D-Dimer POC ABG pH POC ABG pCO2 56.7 H POC ABG pO2 291 H ABG pO2 ABG HCO3 ABG Base Excess ABG Hemoglobin Oxyhemoglobin Sodium Potassium Chloride Carbon Dioxide BUN Creatinine Glucose POC Glucose Calcium Phosphorus Magnesium ALT Alkaline Phosphatase Total Creatine Kinase CK-MB (CK-2) Rel Index Troponin T Albumin LDL Cholesterol Direct PTH Intact Salicylates < 0.3 L Acetaminophen < 5.0 L Crossmatch 02/21/19 02/22/19 02/22/19 22:35 03:42 03:42 WBC RBC 3.20 L Hgb 8.8 L Hct 27.6 L MCV MCH MCHC RDW 18.9 H Plt Count Lymph % (Auto) 7.4 L Harvey % (Auto) Eos % (Auto) Baso % (Auto) Lymph # 0.7 L Harvey # Eos # Baso # Seg Neutrophils % 84.7 H Seg Neuts % (Manual) Lymphocytes % (Manual) Eosinophils % (Manual) Seg Neutrophils # Lymphocytes # (Manual) Eosinophils # (Manual) PT INR D-Dimer POC ABG pH POC ABG pCO2 POC ABG pO2 ABG pO2 ABG HCO3 ABG Base Excess ABG Hemoglobin Oxyhemoglobin Sodium 134 L Potassium 2.6 L* D Chloride Carbon Dioxide BUN Creatinine Glucose POC Glucose Calcium Phosphorus Magnesium ALT Alkaline Phosphatase Total Creatine Kinase CK-MB (CK-2) Rel Index 5.2 H Troponin T 0.202 H* Albumin LDL Cholesterol Direct PTH Intact Salicylates Acetaminophen Crossmatch 02/22/19 02/22/19 02/22/19 03:42 05:54 09:04 WBC RBC Hgb Hct MCV MCH MCHC RDW Plt Count Lymph % (Auto) Harvey % (Auto) Eos % (Auto) Baso % (Auto) Lymph # Harvey # Eos # Baso # Seg Neutrophils % Seg Neuts % (Manual) Lymphocytes % (Manual) Eosinophils % (Manual) Seg Neutrophils # Lymphocytes # (Manual) Eosinophils # (Manual) PT INR D-Dimer 2987.82 H POC ABG pH 7.451 H POC ABG pCO2 POC ABG pO2 ABG pO2 ABG HCO3 ABG Base Excess ABG Hemoglobin Oxyhemoglobin Sodium Potassium Chloride Carbon Dioxide BUN Creatinine Glucose POC Glucose Calcium Phosphorus Magnesium ALT Alkaline Phosphatase Total Creatine Kinase CK-MB (CK-2) Rel Index 5.7 H Troponin T 0.193 H* Albumin LDL Cholesterol Direct PTH Intact Salicylates Acetaminophen Crossmatch 02/22/19 02/22/19 02/23/19 10:36 23:56 00:52 WBC RBC Hgb Hct MCV MCH MCHC RDW Plt Count Lymph % (Auto) Harvey % (Auto) Eos % (Auto) Baso % (Auto) Lymph # Harvey # Eos # Baso # Seg Neutrophils % Seg Neuts % (Manual) Lymphocytes % (Manual) Eosinophils % (Manual) Seg Neutrophils # Lymphocytes # (Manual) Eosinophils # (Manual) PT INR D-Dimer POC ABG pH POC ABG pCO2 POC ABG pO2 ABG pO2 ABG HCO3 ABG Base Excess ABG Hemoglobin Oxyhemoglobin Sodium Potassium 3.1 L Chloride Carbon Dioxide BUN Creatinine Glucose POC Glucose 58 L 111 H Calcium Phosphorus Magnesium ALT Alkaline Phosphatase Total Creatine Kinase CK-MB (CK-2) Rel Index Troponin T Albumin LDL Cholesterol Direct PTH Intact Salicylates Acetaminophen Crossmatch 02/23/19 02/23/19 02/23/19 05:00 06:35 14:26 WBC RBC Hgb Hct MCV MCH MCHC RDW Plt Count Lymph % (Auto) Harvey % (Auto) Eos % (Auto) Baso % (Auto) Lymph # Harvey # Eos # Baso # Seg Neutrophils % Seg Neuts % (Manual) Lymphocytes % (Manual) Eosinophils % (Manual) Seg Neutrophils # Lymphocytes # (Manual) Eosinophils # (Manual) PT INR D-Dimer POC ABG pH POC ABG pCO2 POC ABG pO2 ABG pO2 ABG HCO3 ABG Base Excess ABG Hemoglobin Oxyhemoglobin Sodium 135 L Potassium 3.1 L Chloride Carbon Dioxide BUN 21 H Creatinine 2.0 H Glucose 57 L POC Glucose 64 L 62 L Calcium Phosphorus Magnesium ALT Alkaline Phosphatase Total Creatine Kinase CK-MB (CK-2) Rel Index Troponin T Albumin LDL Cholesterol Direct PTH Intact Salicylates Acetaminophen Crossmatch 02/24/19 02/24/19 02/24/19 02:11 04:12 04:55 WBC RBC 2.84 L Hgb 7.8 L Hct 24.5 L MCV MCH MCHC RDW 19.5 H Plt Count Lymph % (Auto) Harvey % (Auto) Eos % (Auto) Baso % (Auto) Lymph # Harvey # Eos # Baso # Seg Neutrophils % Seg Neuts % (Manual) Lymphocytes % (Manual) Eosinophils % (Manual) Seg Neutrophils # Lymphocytes # (Manual) Eosinophils # (Manual) PT INR D-Dimer POC ABG pH 7.511 H POC ABG pCO2 33.9 L POC ABG pO2 62 L ABG pO2 ABG HCO3 ABG Base Excess ABG Hemoglobin Oxyhemoglobin Sodium Potassium Chloride Carbon Dioxide BUN Creatinine Glucose POC Glucose 69 L Calcium Phosphorus Magnesium ALT Alkaline Phosphatase Total Creatine Kinase CK-MB (CK-2) Rel Index Troponin T Albumin LDL Cholesterol Direct PTH Intact Salicylates Acetaminophen Crossmatch 02/24/19 02/24/19 02/25/19 04:55 05:41 04:45 WBC RBC Hgb Hct MCV MCH MCHC RDW Plt Count Lymph % (Auto) Harvey % (Auto) Eos % (Auto) Baso % (Auto) Lymph # Harvey # Eos # Baso # Seg Neutrophils % Seg Neuts % (Manual) Lymphocytes % (Manual) Eosinophils % (Manual) Seg Neutrophils # Lymphocytes # (Manual) Eosinophils # (Manual) PT INR D-Dimer POC ABG pH 7.466 H POC ABG pCO2 POC ABG pO2 75 L ABG pO2 ABG HCO3 ABG Base Excess ABG Hemoglobin Oxyhemoglobin Sodium Potassium Chloride Carbon Dioxide BUN Creatinine 1.8 H Glucose 73 L POC Glucose 127 H Calcium Phosphorus Magnesium ALT Alkaline Phosphatase Total Creatine Kinase CK-MB (CK-2) Rel Index Troponin T Albumin LDL Cholesterol Direct PTH Intact Salicylates Acetaminophen Crossmatch 02/25/19 02/25/19 02/26/19 16:34 21:33 03:45 WBC RBC 2.96 L Hgb 8.0 L Hct 25.8 L MCV MCH 27 L MCHC 31 L RDW 20.0 H Plt Count Lymph % (Auto) Harvey % (Auto) Eos % (Auto) Baso % (Auto) Lymph # Harvey # Eos # Baso # Seg Neutrophils % Seg Neuts % (Manual) Lymphocytes % (Manual) Eosinophils % (Manual) Seg Neutrophils # Lymphocytes # (Manual) Eosinophils # (Manual) PT INR D-Dimer POC ABG pH POC ABG pCO2 POC ABG pO2 ABG pO2 ABG HCO3 ABG Base Excess ABG Hemoglobin Oxyhemoglobin Sodium Potassium Chloride Carbon Dioxide BUN Creatinine Glucose POC Glucose 141 H 106 H Calcium Phosphorus Magnesium ALT Alkaline Phosphatase Total Creatine Kinase CK-MB (CK-2) Rel Index Troponin T Albumin LDL Cholesterol Direct PTH Intact Salicylates Acetaminophen Crossmatch 02/26/19 02/26/19 02/26/19 03:45 04:13 07:53 WBC RBC Hgb Hct MCV MCH MCHC RDW Plt Count Lymph % (Auto) Harvey % (Auto) Eos % (Auto) Baso % (Auto) Lymph # Harvey # Eos # Baso # Seg Neutrophils % Seg Neuts % (Manual) Lymphocytes % (Manual) Eosinophils % (Manual) Seg Neutrophils # Lymphocytes # (Manual) Eosinophils # (Manual) PT INR D-Dimer POC ABG pH 7.470 H POC ABG pCO2 POC ABG pO2 ABG pO2 ABG HCO3 ABG Base Excess ABG Hemoglobin Oxyhemoglobin Sodium Potassium Chloride Carbon Dioxide BUN Creatinine 1.8 H Glucose POC Glucose 110 H Calcium Phosphorus Magnesium ALT Alkaline Phosphatase Total Creatine Kinase CK-MB (CK-2) Rel Index Troponin T Albumin LDL Cholesterol Direct PTH Intact Salicylates Acetaminophen Crossmatch 02/26/19 02/26/19 02/27/19 11:56 17:43 00:12 WBC RBC Hgb Hct MCV MCH MCHC RDW Plt Count Lymph % (Auto) Harvey % (Auto) Eos % (Auto) Baso % (Auto) Lymph # Harvey # Eos # Baso # Seg Neutrophils % Seg Neuts % (Manual) Lymphocytes % (Manual) Eosinophils % (Manual) Seg Neutrophils # Lymphocytes # (Manual) Eosinophils # (Manual) PT INR D-Dimer POC ABG pH POC ABG pCO2 POC ABG pO2 ABG pO2 ABG HCO3 ABG Base Excess ABG Hemoglobin Oxyhemoglobin Sodium Potassium Chloride Carbon Dioxide BUN Creatinine Glucose POC Glucose 112 H 127 H 127 H Calcium Phosphorus Magnesium ALT Alkaline Phosphatase Total Creatine Kinase CK-MB (CK-2) Rel Index Troponin T Albumin LDL Cholesterol Direct PTH Intact Salicylates Acetaminophen Crossmatch 02/27/19 02/27/19 02/27/19 04:35 13:15 18:02 WBC RBC Hgb Hct MCV MCH MCHC RDW Plt Count Lymph % (Auto) Harvey % (Auto) Eos % (Auto) Baso % (Auto) Lymph # Harvey # Eos # Baso # Seg Neutrophils % Seg Neuts % (Manual) Lymphocytes % (Manual) Eosinophils % (Manual) Seg Neutrophils # Lymphocytes # (Manual) Eosinophils # (Manual) PT INR D-Dimer POC ABG pH 7.483 H POC ABG pCO2 POC ABG pO2 61 L ABG pO2 ABG HCO3 ABG Base Excess ABG Hemoglobin Oxyhemoglobin Sodium Potassium Chloride Carbon Dioxide BUN Creatinine Glucose POC Glucose 143 H 106 H Calcium Phosphorus Magnesium ALT Alkaline Phosphatase Total Creatine Kinase CK-MB (CK-2) Rel Index Troponin T Albumin LDL Cholesterol Direct PTH Intact Salicylates Acetaminophen Crossmatch 02/28/19 02/28/19 02/28/19 05:50 11:59 17:52 WBC RBC Hgb Hct MCV MCH MCHC RDW Plt Count Lymph % (Auto) Harvey % (Auto) Eos % (Auto) Baso % (Auto) Lymph # Harvey # Eos # Baso # Seg Neutrophils % Seg Neuts % (Manual) Lymphocytes % (Manual) Eosinophils % (Manual) Seg Neutrophils # Lymphocytes # (Manual) Eosinophils # (Manual) PT INR D-Dimer POC ABG pH POC ABG pCO2 POC ABG pO2 ABG pO2 ABG HCO3 ABG Base Excess ABG Hemoglobin Oxyhemoglobin Sodium Potassium Chloride Carbon Dioxide BUN Creatinine Glucose POC Glucose 134 H 128 H 142 H Calcium Phosphorus Magnesium ALT Alkaline Phosphatase Total Creatine Kinase CK-MB (CK-2) Rel Index Troponin T Albumin LDL Cholesterol Direct PTH Intact Salicylates Acetaminophen Crossmatch 02/28/19 03/01/19 03/01/19 23:13 05:40 09:39 WBC RBC Hgb Hct MCV MCH MCHC RDW Plt Count Lymph % (Auto) Harvey % (Auto) Eos % (Auto) Baso % (Auto) Lymph # Harvey # Eos # Baso # Seg Neutrophils % Seg Neuts % (Manual) Lymphocytes % (Manual) Eosinophils % (Manual) Seg Neutrophils # Lymphocytes # (Manual) Eosinophils # (Manual) PT 16.3 H INR 1.35 H D-Dimer POC ABG pH POC ABG pCO2 POC ABG pO2 ABG pO2 ABG HCO3 ABG Base Excess ABG Hemoglobin Oxyhemoglobin Sodium Potassium Chloride Carbon Dioxide BUN Creatinine Glucose POC Glucose 112 H 111 H Calcium Phosphorus Magnesium ALT Alkaline Phosphatase Total Creatine Kinase CK-MB (CK-2) Rel Index Troponin T Albumin LDL Cholesterol Direct PTH Intact Salicylates Acetaminophen Crossmatch 03/01/19 03/01/19 03/01/19 11:56 13:54 17:59 WBC RBC Hgb Hct MCV MCH MCHC RDW Plt Count Lymph % (Auto) Harvey % (Auto) Eos % (Auto) Baso % (Auto) Lymph # Harvey # Eos # Baso # Seg Neutrophils % Seg Neuts % (Manual) Lymphocytes % (Manual) Eosinophils % (Manual) Seg Neutrophils # Lymphocytes # (Manual) Eosinophils # (Manual) PT INR D-Dimer POC ABG pH POC ABG pCO2 POC ABG pO2 ABG pO2 ABG HCO3 ABG Base Excess ABG Hemoglobin Oxyhemoglobin Sodium Potassium Chloride Carbon Dioxide BUN 33 H Creatinine 2.8 H D Glucose 176 H POC Glucose 199 H 147 H Calcium Phosphorus Magnesium ALT Alkaline Phosphatase Total Creatine Kinase CK-MB (CK-2) Rel Index Troponin T Albumin LDL Cholesterol Direct PTH Intact Salicylates Acetaminophen Crossmatch 03/02/19 03/02/19 03/02/19 05:15 05:15 05:15 WBC RBC 2.73 L Hgb 7.4 L Hct 23.0 L MCV MCH 27 L MCHC RDW 19.9 H Plt Count Lymph % (Auto) Harvey % (Auto) 7.9 H Eos % (Auto) 7.6 H Baso % (Auto) Lymph # 1.0 L Harvey # Eos # 0.5 H Baso # Seg Neutrophils % Seg Neuts % (Manual) Lymphocytes % (Manual) Eosinophils % (Manual) Seg Neutrophils # Lymphocytes # (Manual) Eosinophils # (Manual) PT INR D-Dimer POC ABG pH POC ABG pCO2 POC ABG pO2 ABG pO2 ABG HCO3 ABG Base Excess ABG Hemoglobin Oxyhemoglobin Sodium Potassium Chloride Carbon Dioxide BUN 43 H Creatinine 3.2 H Glucose POC Glucose Calcium Phosphorus 2.30 L Magnesium ALT Alkaline Phosphatase Total Creatine Kinase CK-MB (CK-2) Rel Index Troponin T Albumin LDL Cholesterol Direct PTH Intact 267.6 H Salicylates Acetaminophen Crossmatch 03/02/19 03/02/19 03/03/19 12:32 18:20 13:30 WBC RBC Hgb Hct MCV MCH MCHC RDW Plt Count Lymph % (Auto) Harvey % (Auto) Eos % (Auto) Baso % (Auto) Lymph # Harvey # Eos # Baso # Seg Neutrophils % Seg Neuts % (Manual) Lymphocytes % (Manual) Eosinophils % (Manual) Seg Neutrophils # Lymphocytes # (Manual) Eosinophils # (Manual) PT INR D-Dimer POC ABG pH POC ABG pCO2 POC ABG pO2 ABG pO2 ABG HCO3 ABG Base Excess ABG Hemoglobin Oxyhemoglobin Sodium Potassium Chloride 97.3 L Carbon Dioxide BUN 26 H Creatinine 2.2 H Glucose 73 L POC Glucose 111 H 156 H Calcium Phosphorus Magnesium ALT Alkaline Phosphatase Total Creatine Kinase CK-MB (CK-2) Rel Index Troponin T Albumin LDL Cholesterol Direct PTH Intact Salicylates Acetaminophen Crossmatch 03/04/19 03/04/19 03/04/19 00:02 05:37 05:40 WBC RBC 2.63 L Hgb 7.2 L Hct 22.2 L MCV MCH MCHC RDW 20.2 H Plt Count Lymph % (Auto) 10.5 L Harvey % (Auto) Eos % (Auto) 4.6 H Baso % (Auto) Lymph # 0.7 L Harvey # Eos # Baso # Seg Neutrophils % 76.9 H Seg Neuts % (Manual) Lymphocytes % (Manual) Eosinophils % (Manual) Seg Neutrophils # Lymphocytes # (Manual) Eosinophils # (Manual) PT INR D-Dimer POC ABG pH POC ABG pCO2 POC ABG pO2 ABG pO2 ABG HCO3 ABG Base Excess ABG Hemoglobin Oxyhemoglobin Sodium Potassium Chloride Carbon Dioxide BUN Creatinine Glucose POC Glucose 136 H 123 H Calcium Phosphorus Magnesium ALT Alkaline Phosphatase Total Creatine Kinase CK-MB (CK-2) Rel Index Troponin T Albumin LDL Cholesterol Direct PTH Intact Salicylates Acetaminophen Crossmatch 03/04/19 03/04/19 03/04/19 05:40 11:39 23:20 WBC RBC Hgb Hct MCV MCH MCHC RDW Plt Count Lymph % (Auto) Harvey % (Auto) Eos % (Auto) Baso % (Auto) Lymph # Harvey # Eos # Baso # Seg Neutrophils % Seg Neuts % (Manual) Lymphocytes % (Manual) Eosinophils % (Manual) Seg Neutrophils # Lymphocytes # (Manual) Eosinophils # (Manual) PT INR D-Dimer POC ABG pH POC ABG pCO2 POC ABG pO2 ABG pO2 ABG HCO3 ABG Base Excess ABG Hemoglobin Oxyhemoglobin Sodium Potassium Chloride Carbon Dioxide BUN 34 H Creatinine 2.7 H Glucose 114 H POC Glucose 175 H 151 H Calcium Phosphorus Magnesium ALT Alkaline Phosphatase Total Creatine Kinase CK-MB (CK-2) Rel Index Troponin T Albumin LDL Cholesterol Direct PTH Intact Salicylates Acetaminophen Crossmatch 03/05/19 03/05/19 03/05/19 05:37 12:08 17:11 WBC RBC Hgb Hct MCV MCH MCHC RDW Plt Count Lymph % (Auto) Harvey % (Auto) Eos % (Auto) Baso % (Auto) Lymph # Harvey # Eos # Baso # Seg Neutrophils % Seg Neuts % (Manual) Lymphocytes % (Manual) Eosinophils % (Manual) Seg Neutrophils # Lymphocytes # (Manual) Eosinophils # (Manual) PT INR D-Dimer POC ABG pH POC ABG pCO2 POC ABG pO2 ABG pO2 ABG HCO3 ABG Base Excess ABG Hemoglobin Oxyhemoglobin Sodium Potassium Chloride Carbon Dioxide BUN Creatinine Glucose POC Glucose 134 H 135 H 135 H Calcium Phosphorus Magnesium ALT Alkaline Phosphatase Total Creatine Kinase CK-MB (CK-2) Rel Index Troponin T Albumin LDL Cholesterol Direct PTH Intact Salicylates Acetaminophen Crossmatch 03/06/19 03/06/19 03/06/19 00:16 13:05 18:09 WBC RBC Hgb Hct MCV MCH MCHC RDW Plt Count Lymph % (Auto) Harvey % (Auto) Eos % (Auto) Baso % (Auto) Lymph # Harvey # Eos # Baso # Seg Neutrophils % Seg Neuts % (Manual) Lymphocytes % (Manual) Eosinophils % (Manual) Seg Neutrophils # Lymphocytes # (Manual) Eosinophils # (Manual) PT INR D-Dimer POC ABG pH POC ABG pCO2 POC ABG pO2 ABG pO2 ABG HCO3 ABG Base Excess ABG Hemoglobin Oxyhemoglobin Sodium Potassium Chloride Carbon Dioxide BUN Creatinine Glucose POC Glucose 117 H 113 H 131 H Calcium Phosphorus Magnesium ALT Alkaline Phosphatase Total Creatine Kinase CK-MB (CK-2) Rel Index Troponin T Albumin LDL Cholesterol Direct PTH Intact Salicylates Acetaminophen Crossmatch 03/07/19 03/08/19 03/08/19 05:25 05:33 16:00 WBC RBC 2.44 L Hgb 6.6 L Hct 20.8 L MCV MCH 27 L MCHC RDW 19.2 H Plt Count Lymph % (Auto) Harvey % (Auto) Eos % (Auto) 8.6 H Baso % (Auto) Lymph # 0.8 L Harvey # Eos # 0.5 H Baso # Seg Neutrophils % 70.7 H Seg Neuts % (Manual) Lymphocytes % (Manual) Eosinophils % (Manual) Seg Neutrophils # Lymphocytes # (Manual) Eosinophils # (Manual) PT INR D-Dimer POC ABG pH POC ABG pCO2 POC ABG pO2 ABG pO2 ABG HCO3 ABG Base Excess ABG Hemoglobin Oxyhemoglobin Sodium Potassium Chloride Carbon Dioxide BUN Creatinine Glucose POC Glucose 106 H 108 H Calcium Phosphorus Magnesium ALT Alkaline Phosphatase Total Creatine Kinase CK-MB (CK-2) Rel Index Troponin T Albumin LDL Cholesterol Direct PTH Intact Salicylates Acetaminophen Crossmatch 03/08/19 03/08/19 03/08/19 16:00 18:38 Unknown WBC RBC Hgb Hct MCV MCH MCHC RDW Plt Count Lymph % (Auto) Harvey % (Auto) Eos % (Auto) Baso % (Auto) Lymph # Harvey # Eos # Baso # Seg Neutrophils % Seg Neuts % (Manual) Lymphocytes % (Manual) Eosinophils % (Manual) Seg Neutrophils # Lymphocytes # (Manual) Eosinophils # (Manual) PT INR D-Dimer POC ABG pH POC ABG pCO2 POC ABG pO2 ABG pO2 ABG HCO3 ABG Base Excess ABG Hemoglobin Oxyhemoglobin Sodium Potassium 5.4 H D Chloride Carbon Dioxide BUN 47 H Creatinine 2.6 H Glucose POC Glucose 123 H Calcium Phosphorus Magnesium ALT < 5 L Alkaline Phosphatase Total Creatine Kinase CK-MB (CK-2) Rel Index Troponin T Albumin 2.2 L LDL Cholesterol Direct PTH Intact Salicylates Acetaminophen Crossmatch See Detail 03/09/19 03/09/19 03/09/19 10:48 12:28 13:53 WBC RBC 2.85 L Hgb 7.7 L Hct 24.2 L MCV MCH 27 L MCHC RDW 18.7 H Plt Count Lymph % (Auto) Harvey % (Auto) Eos % (Auto) Baso % (Auto) Lymph # Harvey # Eos # Baso # Seg Neutrophils % Seg Neuts % (Manual) Lymphocytes % (Manual) Eosinophils % (Manual) Seg Neutrophils # Lymphocytes # (Manual) Eosinophils # (Manual) PT INR D-Dimer POC ABG pH POC ABG pCO2 POC ABG pO2 ABG pO2 ABG HCO3 30.5 H ABG Base Excess 5.6 H ABG Hemoglobin 8.1 L Oxyhemoglobin 93.8 L Sodium Potassium Chloride Carbon Dioxide BUN Creatinine Glucose POC Glucose 114 H Calcium Phosphorus Magnesium ALT Alkaline Phosphatase Total Creatine Kinase CK-MB (CK-2) Rel Index Troponin T Albumin LDL Cholesterol Direct PTH Intact Salicylates Acetaminophen Crossmatch 03/09/19 03/09/19 03/10/19 17:58 23:53 12:01 WBC RBC Hgb Hct MCV MCH MCHC RDW Plt Count Lymph % (Auto) Harvey % (Auto) Eos % (Auto) Baso % (Auto) Lymph # Harvey # Eos # Baso # Seg Neutrophils % Seg Neuts % (Manual) Lymphocytes % (Manual) Eosinophils % (Manual) Seg Neutrophils # Lymphocytes # (Manual) Eosinophils # (Manual) PT INR D-Dimer POC ABG pH POC ABG pCO2 POC ABG pO2 ABG pO2 ABG HCO3 ABG Base Excess ABG Hemoglobin Oxyhemoglobin Sodium Potassium Chloride Carbon Dioxide BUN Creatinine Glucose POC Glucose 108 H 128 H 144 H Calcium Phosphorus Magnesium ALT Alkaline Phosphatase Total Creatine Kinase CK-MB (CK-2) Rel Index Troponin T Albumin LDL Cholesterol Direct PTH Intact Salicylates Acetaminophen Crossmatch 03/10/19 03/11/19 03/11/19 16:50 00:24 05:02 WBC RBC Hgb Hct MCV MCH MCHC RDW Plt Count Lymph % (Auto) Harvey % (Auto) Eos % (Auto) Baso % (Auto) Lymph # Harvey # Eos # Baso # Seg Neutrophils % Seg Neuts % (Manual) Lymphocytes % (Manual) Eosinophils % (Manual) Seg Neutrophils # Lymphocytes # (Manual) Eosinophils # (Manual) PT INR D-Dimer POC ABG pH POC ABG pCO2 POC ABG pO2 ABG pO2 ABG HCO3 ABG Base Excess ABG Hemoglobin Oxyhemoglobin Sodium Potassium Chloride Carbon Dioxide BUN Creatinine Glucose POC Glucose 147 H 123 H 120 H Calcium Phosphorus Magnesium ALT Alkaline Phosphatase Total Creatine Kinase CK-MB (CK-2) Rel Index Troponin T Albumin LDL Cholesterol Direct PTH Intact Salicylates Acetaminophen Crossmatch 03/11/19 03/11/19 03/11/19 11:56 12:20 18:37 WBC RBC Hgb Hct MCV MCH MCHC RDW Plt Count Lymph % (Auto) Harvey % (Auto) Eos % (Auto) Baso % (Auto) Lymph # Harvey # Eos # Baso # Seg Neutrophils % Seg Neuts % (Manual) Lymphocytes % (Manual) Eosinophils % (Manual) Seg Neutrophils # Lymphocytes # (Manual) Eosinophils # (Manual) PT INR D-Dimer POC ABG pH POC ABG pCO2 POC ABG pO2 ABG pO2 ABG HCO3 ABG Base Excess ABG Hemoglobin Oxyhemoglobin Sodium Potassium 5.2 H Chloride Carbon Dioxide BUN Creatinine Glucose POC Glucose 123 H 125 H Calcium Phosphorus Magnesium ALT Alkaline Phosphatase Total Creatine Kinase CK-MB (CK-2) Rel Index Troponin T Albumin LDL Cholesterol Direct PTH Intact Salicylates Acetaminophen Crossmatch 03/11/19 03/12/19 03/12/19 22:52 12:04 18:25 WBC RBC Hgb Hct MCV MCH MCHC RDW Plt Count Lymph % (Auto) Harvey % (Auto) Eos % (Auto) Baso % (Auto) Lymph # Harvey # Eos # Baso # Seg Neutrophils % Seg Neuts % (Manual) Lymphocytes % (Manual) Eosinophils % (Manual) Seg Neutrophils # Lymphocytes # (Manual) Eosinophils # (Manual) PT INR D-Dimer POC ABG pH POC ABG pCO2 POC ABG pO2 ABG pO2 ABG HCO3 ABG Base Excess ABG Hemoglobin Oxyhemoglobin Sodium Potassium Chloride Carbon Dioxide BUN Creatinine Glucose POC Glucose 110 H 106 H 118 H Calcium Phosphorus Magnesium ALT Alkaline Phosphatase Total Creatine Kinase CK-MB (CK-2) Rel Index Troponin T Albumin LDL Cholesterol Direct PTH Intact Salicylates Acetaminophen Crossmatch 03/12/19 03/13/19 03/13/19 23:36 04:38 04:38 WBC RBC 2.95 L Hgb 7.9 L Hct 24.9 L MCV MCH 27 L MCHC RDW 19.9 H Plt Count Lymph % (Auto) 11.1 L Harvey % (Auto) 8.1 H Eos % (Auto) 4.4 H Baso % (Auto) Lymph # 0.9 L Harvey # Eos # Baso # Seg Neutrophils % 75.4 H Seg Neuts % (Manual) Lymphocytes % (Manual) Eosinophils % (Manual) Seg Neutrophils # Lymphocytes # (Manual) Eosinophils # (Manual) PT INR D-Dimer POC ABG pH POC ABG pCO2 POC ABG pO2 ABG pO2 ABG HCO3 ABG Base Excess ABG Hemoglobin Oxyhemoglobin Sodium 136 L Potassium 5.1 H Chloride 93.8 L Carbon Dioxide BUN 48 H Creatinine 2.7 H Glucose 102 H POC Glucose 115 H Calcium Phosphorus Magnesium ALT < 5 L Alkaline Phosphatase 143 H Total Creatine Kinase CK-MB (CK-2) Rel Index Troponin T Albumin 2.5 L LDL Cholesterol Direct PTH Intact Salicylates Acetaminophen Crossmatch 03/13/19 03/13/19 03/13/19 05:33 13:37 18:03 WBC RBC Hgb Hct MCV MCH MCHC RDW Plt Count Lymph % (Auto) Harvey % (Auto) Eos % (Auto) Baso % (Auto) Lymph # Harvey # Eos # Baso # Seg Neutrophils % Seg Neuts % (Manual) Lymphocytes % (Manual) Eosinophils % (Manual) Seg Neutrophils # Lymphocytes # (Manual) Eosinophils # (Manual) PT INR D-Dimer POC ABG pH POC ABG pCO2 POC ABG pO2 ABG pO2 ABG HCO3 ABG Base Excess ABG Hemoglobin Oxyhemoglobin Sodium Potassium Chloride Carbon Dioxide BUN Creatinine Glucose POC Glucose 140 H 150 H 158 H Calcium Phosphorus Magnesium ALT Alkaline Phosphatase Total Creatine Kinase CK-MB (CK-2) Rel Index Troponin T Albumin LDL Cholesterol Direct PTH Intact Salicylates Acetaminophen Crossmatch 03/13/19 03/14/19 03/14/19 23:32 05:24 12:20 WBC RBC Hgb Hct MCV MCH MCHC RDW Plt Count Lymph % (Auto) Harvey % (Auto) Eos % (Auto) Baso % (Auto) Lymph # Harvey # Eos # Baso # Seg Neutrophils % Seg Neuts % (Manual) Lymphocytes % (Manual) Eosinophils % (Manual) Seg Neutrophils # Lymphocytes # (Manual) Eosinophils # (Manual) PT INR D-Dimer POC ABG pH POC ABG pCO2 POC ABG pO2 ABG pO2 ABG HCO3 ABG Base Excess ABG Hemoglobin Oxyhemoglobin Sodium Potassium Chloride Carbon Dioxide BUN Creatinine Glucose POC Glucose 162 H 146 H 127 H Calcium Phosphorus Magnesium ALT Alkaline Phosphatase Total Creatine Kinase CK-MB (CK-2) Rel Index Troponin T Albumin LDL Cholesterol Direct PTH Intact Salicylates Acetaminophen Crossmatch 03/14/19 03/14/19 03/15/19 18:05 23:57 04:38 WBC 12.8 H RBC 3.11 L Hgb 8.1 L Hct 26.5 L MCV MCH 26 L MCHC 31 L RDW 19.7 H Plt Count Lymph % (Auto) 4.4 L Harvey % (Auto) 7.4 H Eos % (Auto) Baso % (Auto) Lymph # 0.6 L Harvey # 0.9 H Eos # Baso # Seg Neutrophils % 87.3 H Seg Neuts % (Manual) Lymphocytes % (Manual) Eosinophils % (Manual) Seg Neutrophils # 11.2 H Lymphocytes # (Manual) Eosinophils # (Manual) PT INR D-Dimer POC ABG pH POC ABG pCO2 POC ABG pO2 ABG pO2 ABG HCO3 ABG Base Excess ABG Hemoglobin Oxyhemoglobin Sodium Potassium Chloride Carbon Dioxide BUN Creatinine Glucose POC Glucose 142 H 155 H Calcium Phosphorus Magnesium ALT Alkaline Phosphatase Total Creatine Kinase CK-MB (CK-2) Rel Index Troponin T Albumin LDL Cholesterol Direct PTH Intact Salicylates Acetaminophen Crossmatch 03/15/19 03/15/19 03/15/19 04:38 05:31 11:32 WBC RBC Hgb Hct MCV MCH MCHC RDW Plt Count Lymph % (Auto) Harvey % (Auto) Eos % (Auto) Baso % (Auto) Lymph # Harvey # Eos # Baso # Seg Neutrophils % Seg Neuts % (Manual) Lymphocytes % (Manual) Eosinophils % (Manual) Seg Neutrophils # Lymphocytes # (Manual) Eosinophils # (Manual) PT INR D-Dimer POC ABG pH POC ABG pCO2 POC ABG pO2 ABG pO2 ABG HCO3 ABG Base Excess ABG Hemoglobin Oxyhemoglobin Sodium 135 L Potassium Chloride 91.9 L Carbon Dioxide BUN 54 H Creatinine 2.8 H Glucose 128 H POC Glucose 160 H 109 H Calcium 11.1 H Phosphorus Magnesium ALT Alkaline Phosphatase 161 H Total Creatine Kinase CK-MB (CK-2) Rel Index Troponin T Albumin 2.3 L LDL Cholesterol Direct PTH Intact Salicylates Acetaminophen Crossmatch 03/15/19 03/15/19 03/16/19 18:15 23:41 05:40 WBC RBC Hgb Hct MCV MCH MCHC RDW Plt Count Lymph % (Auto) Harvey % (Auto) Eos % (Auto) Baso % (Auto) Lymph # Harvey # Eos # Baso # Seg Neutrophils % Seg Neuts % (Manual) Lymphocytes % (Manual) Eosinophils % (Manual) Seg Neutrophils # Lymphocytes # (Manual) Eosinophils # (Manual) PT INR D-Dimer POC ABG pH POC ABG pCO2 POC ABG pO2 ABG pO2 ABG HCO3 ABG Base Excess ABG Hemoglobin Oxyhemoglobin Sodium Potassium Chloride Carbon Dioxide BUN Creatinine Glucose POC Glucose 151 H 110 H 163 H Calcium Phosphorus Magnesium ALT Alkaline Phosphatase Total Creatine Kinase CK-MB (CK-2) Rel Index Troponin T Albumin LDL Cholesterol Direct PTH Intact Salicylates Acetaminophen Crossmatch 03/16/19 03/16/19 03/16/19 11:55 17:04 23:58 WBC RBC Hgb Hct MCV MCH MCHC RDW Plt Count Lymph % (Auto) Harvey % (Auto) Eos % (Auto) Baso % (Auto) Lymph # Harvey # Eos # Baso # Seg Neutrophils % Seg Neuts % (Manual) Lymphocytes % (Manual) Eosinophils % (Manual) Seg Neutrophils # Lymphocytes # (Manual) Eosinophils # (Manual) PT INR D-Dimer POC ABG pH POC ABG pCO2 POC ABG pO2 ABG pO2 ABG HCO3 ABG Base Excess ABG Hemoglobin Oxyhemoglobin Sodium Potassium Chloride Carbon Dioxide BUN Creatinine Glucose POC Glucose 114 H 147 H 192 H Calcium Phosphorus Magnesium ALT Alkaline Phosphatase Total Creatine Kinase CK-MB (CK-2) Rel Index Troponin T Albumin LDL Cholesterol Direct PTH Intact Salicylates Acetaminophen Crossmatch 03/17/19 03/17/19 03/17/19 05:53 11:17 17:01 WBC RBC Hgb Hct MCV MCH MCHC RDW Plt Count Lymph % (Auto) Harvey % (Auto) Eos % (Auto) Baso % (Auto) Lymph # Harvey # Eos # Baso # Seg Neutrophils % Seg Neuts % (Manual) Lymphocytes % (Manual) Eosinophils % (Manual) Seg Neutrophils # Lymphocytes # (Manual) Eosinophils # (Manual) PT INR D-Dimer POC ABG pH POC ABG pCO2 POC ABG pO2 ABG pO2 ABG HCO3 ABG Base Excess ABG Hemoglobin Oxyhemoglobin Sodium Potassium Chloride Carbon Dioxide BUN Creatinine Glucose POC Glucose 151 H 161 H 152 H Calcium Phosphorus Magnesium ALT Alkaline Phosphatase Total Creatine Kinase CK-MB (CK-2) Rel Index Troponin T Albumin LDL Cholesterol Direct PTH Intact Salicylates Acetaminophen Crossmatch 03/17/19 03/18/19 03/18/19 21:47 04:15 04:44 WBC RBC Hgb Hct MCV MCH MCHC RDW Plt Count Lymph % (Auto) Harvey % (Auto) Eos % (Auto) Baso % (Auto) Lymph # Harvey # Eos # Baso # Seg Neutrophils % Seg Neuts % (Manual) Lymphocytes % (Manual) Eosinophils % (Manual) Seg Neutrophils # Lymphocytes # (Manual) Eosinophils # (Manual) PT INR D-Dimer POC ABG pH POC ABG pCO2 POC ABG pO2 ABG pO2 102.8 H ABG HCO3 28.3 H ABG Base Excess ABG Hemoglobin 10.4 L Oxyhemoglobin 94.5 L Sodium Potassium Chloride Carbon Dioxide BUN Creatinine Glucose POC Glucose 170 H 150 H Calcium Phosphorus Magnesium ALT Alkaline Phosphatase Total Creatine Kinase CK-MB (CK-2) Rel Index Troponin T Albumin LDL Cholesterol Direct PTH Intact Salicylates Acetaminophen Crossmatch 03/18/19 03/18/19 03/18/19 06:38 12:12 17:47 WBC RBC Hgb Hct MCV MCH MCHC RDW Plt Count Lymph % (Auto) Harvey % (Auto) Eos % (Auto) Baso % (Auto) Lymph # Harvey # Eos # Baso # Seg Neutrophils % Seg Neuts % (Manual) Lymphocytes % (Manual) Eosinophils % (Manual) Seg Neutrophils # Lymphocytes # (Manual) Eosinophils # (Manual) PT INR D-Dimer POC ABG pH 7.510 H POC ABG pCO2 POC ABG pO2 164 H ABG pO2 ABG HCO3 ABG Base Excess ABG Hemoglobin Oxyhemoglobin Sodium Potassium Chloride Carbon Dioxide BUN Creatinine Glucose POC Glucose 145 H 149 H Calcium Phosphorus Magnesium ALT Alkaline Phosphatase Total Creatine Kinase CK-MB (CK-2) Rel Index Troponin T Albumin LDL Cholesterol Direct PTH Intact Salicylates Acetaminophen Crossmatch 03/18/19 03/19/19 03/19/19 23:25 01:11 04:23 WBC 15.6 H RBC 2.51 L Hgb 6.5 L Hct 21.6 L MCV MCH 26 L MCHC 30 L RDW 19.8 H Plt Count Lymph % (Auto) 6.0 L Harvey % (Auto) Eos % (Auto) Baso % (Auto) Lymph # 0.9 L Harvey # 1.0 H Eos # Baso # Seg Neutrophils % 85.5 H Seg Neuts % (Manual) Lymphocytes % (Manual) Eosinophils % (Manual) Seg Neutrophils # 13.4 H Lymphocytes # (Manual) Eosinophils # (Manual) PT INR D-Dimer POC ABG pH POC ABG pCO2 POC ABG pO2 ABG pO2 78.3 L ABG HCO3 30.7 H ABG Base Excess 5.8 H ABG Hemoglobin 5.8 L Oxyhemoglobin 94.6 L Sodium Potassium Chloride Carbon Dioxide BUN Creatinine Glucose POC Glucose 190 H Calcium Phosphorus Magnesium ALT Alkaline Phosphatase Total Creatine Kinase CK-MB (CK-2) Rel Index Troponin T Albumin LDL Cholesterol Direct PTH Intact Salicylates Acetaminophen Crossmatch 03/19/19 03/19/19 03/19/19 05:22 05:35 08:54 WBC RBC Hgb Hct MCV MCH MCHC RDW Plt Count Lymph % (Auto) Harvey % (Auto) Eos % (Auto) Baso % (Auto) Lymph # Harvey # Eos # Baso # Seg Neutrophils % Seg Neuts % (Manual) Lymphocytes % (Manual) Eosinophils % (Manual) Seg Neutrophils # Lymphocytes # (Manual) Eosinophils # (Manual) PT INR D-Dimer POC ABG pH POC ABG pCO2 POC ABG pO2 ABG pO2 ABG HCO3 ABG Base Excess ABG Hemoglobin Oxyhemoglobin Sodium Potassium Chloride Carbon Dioxide BUN Creatinine Glucose POC Glucose 167 H Calcium Phosphorus Magnesium ALT Alkaline Phosphatase Total Creatine Kinase CK-MB (CK-2) Rel Index Troponin T Albumin LDL Cholesterol Direct PTH Intact Salicylates Acetaminophen Crossmatch See Detail See Detail 03/19/19 03/19/19 03/19/19 12:36 17:02 23:25 WBC RBC Hgb Hct MCV MCH MCHC RDW Plt Count Lymph % (Auto) Harvey % (Auto) Eos % (Auto) Baso % (Auto) Lymph # Harvey # Eos # Baso # Seg Neutrophils % Seg Neuts % (Manual) Lymphocytes % (Manual) Eosinophils % (Manual) Seg Neutrophils # Lymphocytes # (Manual) Eosinophils # (Manual) PT INR D-Dimer POC ABG pH POC ABG pCO2 POC ABG pO2 ABG pO2 ABG HCO3 ABG Base Excess ABG Hemoglobin Oxyhemoglobin Sodium Potassium Chloride Carbon Dioxide BUN Creatinine Glucose POC Glucose 167 H 135 H 136 H Calcium Phosphorus Magnesium ALT Alkaline Phosphatase Total Creatine Kinase CK-MB (CK-2) Rel Index Troponin T Albumin LDL Cholesterol Direct PTH Intact Salicylates Acetaminophen Crossmatch 03/20/19 03/20/19 03/20/19 05:38 08:40 08:40 WBC RBC 2.61 L Hgb 7.1 L Hct 22.0 L MCV MCH 27 L MCHC RDW 19.6 H Plt Count Lymph % (Auto) 8.2 L Harvey % (Auto) 8.3 H Eos % (Auto) 5.7 H Baso % (Auto) Lymph # 0.8 L Harvey # Eos # 0.5 H Baso # Seg Neutrophils % 77.3 H Seg Neuts % (Manual) Lymphocytes % (Manual) Eosinophils % (Manual) Seg Neutrophils # Lymphocytes # (Manual) Eosinophils # (Manual) PT INR D-Dimer POC ABG pH POC ABG pCO2 POC ABG pO2 ABG pO2 ABG HCO3 ABG Base Excess ABG Hemoglobin Oxyhemoglobin Sodium Potassium Chloride 95.9 L Carbon Dioxide BUN 69 H Creatinine 2.8 H Glucose 115 H POC Glucose 134 H Calcium 10.5 H Phosphorus Magnesium ALT Alkaline Phosphatase Total Creatine Kinase CK-MB (CK-2) Rel Index Troponin T Albumin LDL Cholesterol Direct PTH Intact Salicylates Acetaminophen Crossmatch 03/20/19 03/20/19 03/20/19 12:13 18:04 23:49 WBC RBC Hgb Hct MCV MCH MCHC RDW Plt Count Lymph % (Auto) Harvey % (Auto) Eos % (Auto) Baso % (Auto) Lymph # Harvey # Eos # Baso # Seg Neutrophils % Seg Neuts % (Manual) Lymphocytes % (Manual) Eosinophils % (Manual) Seg Neutrophils # Lymphocytes # (Manual) Eosinophils # (Manual) PT INR D-Dimer POC ABG pH POC ABG pCO2 POC ABG pO2 ABG pO2 ABG HCO3 ABG Base Excess ABG Hemoglobin Oxyhemoglobin Sodium Potassium Chloride Carbon Dioxide BUN Creatinine Glucose POC Glucose 144 H 165 H 172 H Calcium Phosphorus Magnesium ALT Alkaline Phosphatase Total Creatine Kinase CK-MB (CK-2) Rel Index Troponin T Albumin LDL Cholesterol Direct PTH Intact Salicylates Acetaminophen Crossmatch 03/21/19 03/21/19 03/21/19 05:00 06:29 06:30 WBC RBC 2.72 L Hgb 7.4 L Hct 22.9 L MCV MCH 27 L MCHC RDW 19.4 H Plt Count Lymph % (Auto) Harvey % (Auto) Eos % (Auto) Baso % (Auto) Lymph # Harvey # Eos # Baso # Seg Neutrophils % Seg Neuts % (Manual) 81.0 H Lymphocytes % (Manual) 8.0 L Eosinophils % (Manual) 8.0 H Seg Neutrophils # Lymphocytes # (Manual) 0.7 L Eosinophils # (Manual) 0.7 H PT INR D-Dimer POC ABG pH POC ABG pCO2 POC ABG pO2 ABG pO2 ABG HCO3 ABG Base Excess ABG Hemoglobin Oxyhemoglobin Sodium Potassium Chloride Carbon Dioxide 33 H BUN 43 H Creatinine 1.7 H Glucose 145 H POC Glucose 156 H Calcium Phosphorus Magnesium ALT Alkaline Phosphatase 212 H Total Creatine Kinase CK-MB (CK-2) Rel Index Troponin T Albumin 2.2 L LDL Cholesterol Direct PTH Intact Salicylates Acetaminophen Crossmatch 03/21/19 03/21/19 03/22/19 12:02 18:07 00:21 WBC RBC Hgb Hct MCV MCH MCHC RDW Plt Count Lymph % (Auto) Harvey % (Auto) Eos % (Auto) Baso % (Auto) Lymph # Harvey # Eos # Baso # Seg Neutrophils % Seg Neuts % (Manual) Lymphocytes % (Manual) Eosinophils % (Manual) Seg Neutrophils # Lymphocytes # (Manual) Eosinophils # (Manual) PT INR D-Dimer POC ABG pH POC ABG pCO2 POC ABG pO2 ABG pO2 ABG HCO3 ABG Base Excess ABG Hemoglobin Oxyhemoglobin Sodium Potassium Chloride Carbon Dioxide BUN Creatinine Glucose POC Glucose 163 H 144 H 153 H Calcium Phosphorus Magnesium ALT Alkaline Phosphatase Total Creatine Kinase CK-MB (CK-2) Rel Index Troponin T Albumin LDL Cholesterol Direct PTH Intact Salicylates Acetaminophen Crossmatch 03/22/19 03/22/19 03/22/19 05:23 05:23 05:31 WBC RBC 2.58 L Hgb 7.1 L Hct 21.8 L MCV MCH 27 L MCHC RDW 19.2 H Plt Count Lymph % (Auto) Harvey % (Auto) Eos % (Auto) Baso % (Auto) Lymph # Harvey # Eos # Baso # Seg Neutrophils % Seg Neuts % (Manual) Lymphocytes % (Manual) Eosinophils % (Manual) Seg Neutrophils # Lymphocytes # (Manual) Eosinophils # (Manual) PT INR D-Dimer POC ABG pH POC ABG pCO2 POC ABG pO2 ABG pO2 ABG HCO3 ABG Base Excess ABG Hemoglobin Oxyhemoglobin Sodium 147 H Potassium Chloride Carbon Dioxide BUN 68 H Creatinine 2.5 H Glucose POC Glucose 116 H Calcium 10.3 H Phosphorus Magnesium ALT Alkaline Phosphatase Total Creatine Kinase CK-MB (CK-2) Rel Index Troponin T Albumin LDL Cholesterol Direct PTH Intact Salicylates Acetaminophen Crossmatch 03/22/19 03/22/19 03/22/19 08:48 12:37 17:35 WBC RBC Hgb Hct MCV MCH MCHC RDW Plt Count Lymph % (Auto) Harvey % (Auto) Eos % (Auto) Baso % (Auto) Lymph # Harvey # Eos # Baso # Seg Neutrophils % Seg Neuts % (Manual) Lymphocytes % (Manual) Eosinophils % (Manual) Seg Neutrophils # Lymphocytes # (Manual) Eosinophils # (Manual) PT INR D-Dimer POC ABG pH POC ABG pCO2 POC ABG pO2 ABG pO2 ABG HCO3 ABG Base Excess ABG Hemoglobin Oxyhemoglobin Sodium Potassium Chloride Carbon Dioxide BUN Creatinine Glucose POC Glucose 143 H 155 H Calcium Phosphorus Magnesium ALT Alkaline Phosphatase Total Creatine Kinase CK-MB (CK-2) Rel Index Troponin T Albumin LDL Cholesterol Direct PTH Intact Salicylates Acetaminophen Crossmatch See Detail 03/23/19 03/23/19 03/23/19 00:07 04:00 04:00 WBC 11.2 H RBC 2.32 L Hgb 6.4 L Hct 19.7 L* MCV MCH MCHC RDW 19.4 H Plt Count Lymph % (Auto) Harvey % (Auto) Eos % (Auto) Baso % (Auto) Lymph # Harvey # Eos # Baso # Seg Neutrophils % Seg Neuts % (Manual) Lymphocytes % (Manual) Eosinophils % (Manual) Seg Neutrophils # Lymphocytes # (Manual) Eosinophils # (Manual) PT INR D-Dimer POC ABG pH POC ABG pCO2 POC ABG pO2 ABG pO2 ABG HCO3 ABG Base Excess ABG Hemoglobin Oxyhemoglobin Sodium 147 H Potassium 5.2 H Chloride Carbon Dioxide BUN 86 H Creatinine 3.2 H Glucose 128 H POC Glucose 135 H Calcium 10.3 H Phosphorus Magnesium ALT Alkaline Phosphatase Total Creatine Kinase CK-MB (CK-2) Rel Index Troponin T Albumin LDL Cholesterol Direct PTH Intact Salicylates Acetaminophen Crossmatch 03/23/19 03/23/19 03/23/19 05:21 11:36 11:36 WBC RBC Hgb 7.9 L Hct 25.0 L MCV MCH MCHC RDW Plt Count Lymph % (Auto) Harvey % (Auto) Eos % (Auto) Baso % (Auto) Lymph # Harvey # Eos # Baso # Seg Neutrophils % Seg Neuts % (Manual) Lymphocytes % (Manual) Eosinophils % (Manual) Seg Neutrophils # Lymphocytes # (Manual) Eosinophils # (Manual) PT INR D-Dimer POC ABG pH POC ABG pCO2 POC ABG pO2 ABG pO2 ABG HCO3 ABG Base Excess ABG Hemoglobin Oxyhemoglobin Sodium Potassium Chloride Carbon Dioxide BUN Creatinine Glucose POC Glucose 132 H 147 H Calcium Phosphorus Magnesium ALT Alkaline Phosphatase Total Creatine Kinase CK-MB (CK-2) Rel Index Troponin T Albumin LDL Cholesterol Direct PTH Intact Salicylates Acetaminophen Crossmatch 03/23/19 03/24/19 03/24/19 17:31 01:22 04:20 WBC 12.2 H RBC 3.05 L Hgb 8.3 L Hct 25.9 L MCV MCH 27 L MCHC RDW 18.7 H Plt Count Lymph % (Auto) Harvey % (Auto) Eos % (Auto) Baso % (Auto) Lymph # Harvey # Eos # Baso # Seg Neutrophils % Seg Neuts % (Manual) Lymphocytes % (Manual) Eosinophils % (Manual) Seg Neutrophils # Lymphocytes # (Manual) Eosinophils # (Manual) PT INR D-Dimer POC ABG pH POC ABG pCO2 POC ABG pO2 ABG pO2 ABG HCO3 ABG Base Excess ABG Hemoglobin Oxyhemoglobin Sodium Potassium Chloride Carbon Dioxide BUN Creatinine Glucose POC Glucose 182 H 113 H Calcium Phosphorus Magnesium ALT Alkaline Phosphatase Total Creatine Kinase CK-MB (CK-2) Rel Index Troponin T Albumin LDL Cholesterol Direct PTH Intact Salicylates Acetaminophen Crossmatch 03/24/19 03/24/19 03/24/19 04:20 11:59 18:14 WBC RBC Hgb Hct MCV MCH MCHC RDW Plt Count Lymph % (Auto) Harvey % (Auto) Eos % (Auto) Baso % (Auto) Lymph # Harvey # Eos # Baso # Seg Neutrophils % Seg Neuts % (Manual) Lymphocytes % (Manual) Eosinophils % (Manual) Seg Neutrophils # Lymphocytes # (Manual) Eosinophils # (Manual) PT INR D-Dimer POC ABG pH POC ABG pCO2 POC ABG pO2 ABG pO2 ABG HCO3 ABG Base Excess ABG Hemoglobin Oxyhemoglobin Sodium Potassium Chloride 94.8 L Carbon Dioxide 32 H BUN 53 H Creatinine 2.3 H Glucose POC Glucose 163 H 134 H Calcium Phosphorus Magnesium ALT Alkaline Phosphatase Total Creatine Kinase CK-MB (CK-2) Rel Index Troponin T Albumin LDL Cholesterol Direct PTH Intact Salicylates Acetaminophen Crossmatch 03/24/19 03/25/19 03/25/19 23:15 05:52 12:02 WBC RBC Hgb Hct MCV MCH MCHC RDW Plt Count Lymph % (Auto) Harvey % (Auto) Eos % (Auto) Baso % (Auto) Lymph # Harvey # Eos # Baso # Seg Neutrophils % Seg Neuts % (Manual) Lymphocytes % (Manual) Eosinophils % (Manual) Seg Neutrophils # Lymphocytes # (Manual) Eosinophils # (Manual) PT INR D-Dimer POC ABG pH POC ABG pCO2 POC ABG pO2 ABG pO2 ABG HCO3 ABG Base Excess ABG Hemoglobin Oxyhemoglobin Sodium Potassium Chloride Carbon Dioxide BUN Creatinine Glucose POC Glucose 129 H 123 H 125 H Calcium Phosphorus Magnesium ALT Alkaline Phosphatase Total Creatine Kinase CK-MB (CK-2) Rel Index Troponin T Albumin LDL Cholesterol Direct PTH Intact Salicylates Acetaminophen Crossmatch 03/25/19 03/26/19 03/26/19 17:27 00:30 05:35 WBC RBC 3.01 L Hgb 8.1 L Hct 25.7 L MCV MCH 27 L MCHC RDW 19.2 H Plt Count Lymph % (Auto) 11.4 L Harvey % (Auto) Eos % (Auto) 8.0 H Baso % (Auto) Lymph # 1.0 L Harvey # Eos # 0.7 H Baso # Seg Neutrophils % 73.9 H Seg Neuts % (Manual) Lymphocytes % (Manual) Eosinophils % (Manual) Seg Neutrophils # Lymphocytes # (Manual) Eosinophils # (Manual) PT INR D-Dimer POC ABG pH POC ABG pCO2 POC ABG pO2 ABG pO2 ABG HCO3 ABG Base Excess ABG Hemoglobin Oxyhemoglobin Sodium Potassium Chloride Carbon Dioxide BUN Creatinine Glucose POC Glucose 130 H 129 H Calcium Phosphorus Magnesium ALT Alkaline Phosphatase Total Creatine Kinase CK-MB (CK-2) Rel Index Troponin T Albumin LDL Cholesterol Direct PTH Intact Salicylates Acetaminophen Crossmatch 03/26/19 03/26/19 03/26/19 05:35 05:45 12:16 WBC RBC Hgb Hct MCV MCH MCHC RDW Plt Count Lymph % (Auto) Harvey % (Auto) Eos % (Auto) Baso % (Auto) Lymph # Harvey # Eos # Baso # Seg Neutrophils % Seg Neuts % (Manual) Lymphocytes % (Manual) Eosinophils % (Manual) Seg Neutrophils # Lymphocytes # (Manual) Eosinophils # (Manual) PT INR D-Dimer POC ABG pH POC ABG pCO2 POC ABG pO2 ABG pO2 ABG HCO3 ABG Base Excess ABG Hemoglobin Oxyhemoglobin Sodium Potassium Chloride 94.9 L Carbon Dioxide 31 H BUN 44 H Creatinine 2.0 H Glucose POC Glucose 118 H 107 H Calcium Phosphorus Magnesium ALT Alkaline Phosphatase Total Creatine Kinase CK-MB (CK-2) Rel Index Troponin T Albumin LDL Cholesterol Direct PTH Intact Salicylates Acetaminophen Crossmatch 03/26/19 03/27/19 03/27/19 17:56 00:36 05:37 WBC RBC Hgb Hct MCV MCH MCHC RDW Plt Count Lymph % (Auto) Harvey % (Auto) Eos % (Auto) Baso % (Auto) Lymph # Harvey # Eos # Baso # Seg Neutrophils % Seg Neuts % (Manual) Lymphocytes % (Manual) Eosinophils % (Manual) Seg Neutrophils # Lymphocytes # (Manual) Eosinophils # (Manual) PT INR D-Dimer POC ABG pH POC ABG pCO2 POC ABG pO2 ABG pO2 ABG HCO3 ABG Base Excess ABG Hemoglobin Oxyhemoglobin Sodium Potassium Chloride Carbon Dioxide BUN Creatinine Glucose POC Glucose 107 H 110 H 122 H Calcium Phosphorus Magnesium ALT Alkaline Phosphatase Total Creatine Kinase CK-MB (CK-2) Rel Index Troponin T Albumin LDL Cholesterol Direct PTH Intact Salicylates Acetaminophen Crossmatch 03/27/19 03/27/19 03/28/19 11:22 18:00 05:17 WBC RBC Hgb Hct MCV MCH MCHC RDW Plt Count Lymph % (Auto) Harvey % (Auto) Eos % (Auto) Baso % (Auto) Lymph # Harvey # Eos # Baso # Seg Neutrophils % Seg Neuts % (Manual) Lymphocytes % (Manual) Eosinophils % (Manual) Seg Neutrophils # Lymphocytes # (Manual) Eosinophils # (Manual) PT INR D-Dimer POC ABG pH POC ABG pCO2 POC ABG pO2 ABG pO2 ABG HCO3 ABG Base Excess ABG Hemoglobin Oxyhemoglobin Sodium Potassium Chloride Carbon Dioxide BUN Creatinine Glucose POC Glucose 120 H 111 H 107 H Calcium Phosphorus Magnesium ALT Alkaline Phosphatase Total Creatine Kinase CK-MB (CK-2) Rel Index Troponin T Albumin LDL Cholesterol Direct PTH Intact Salicylates Acetaminophen Crossmatch 03/28/19 03/28/19 03/29/19 12:27 18:08 05:47 WBC RBC Hgb Hct MCV MCH MCHC RDW Plt Count Lymph % (Auto) Harvey % (Auto) Eos % (Auto) Baso % (Auto) Lymph # Harvey # Eos # Baso # Seg Neutrophils % Seg Neuts % (Manual) Lymphocytes % (Manual) Eosinophils % (Manual) Seg Neutrophils # Lymphocytes # (Manual) Eosinophils # (Manual) PT INR D-Dimer POC ABG pH POC ABG pCO2 POC ABG pO2 ABG pO2 ABG HCO3 ABG Base Excess ABG Hemoglobin Oxyhemoglobin Sodium Potassium Chloride Carbon Dioxide BUN Creatinine Glucose POC Glucose 114 H 121 H 112 H Calcium Phosphorus Magnesium ALT Alkaline Phosphatase Total Creatine Kinase CK-MB (CK-2) Rel Index Troponin T Albumin LDL Cholesterol Direct PTH Intact Salicylates Acetaminophen Crossmatch 03/29/19 03/29/19 03/30/19 12:14 18:08 00:31 WBC RBC Hgb Hct MCV MCH MCHC RDW Plt Count Lymph % (Auto) Harvey % (Auto) Eos % (Auto) Baso % (Auto) Lymph # Harvey # Eos # Baso # Seg Neutrophils % Seg Neuts % (Manual) Lymphocytes % (Manual) Eosinophils % (Manual) Seg Neutrophils # Lymphocytes # (Manual) Eosinophils # (Manual) PT INR D-Dimer POC ABG pH POC ABG pCO2 POC ABG pO2 ABG pO2 ABG HCO3 ABG Base Excess ABG Hemoglobin Oxyhemoglobin Sodium Potassium Chloride Carbon Dioxide BUN Creatinine Glucose POC Glucose 117 H 140 H 114 H Calcium Phosphorus Magnesium ALT Alkaline Phosphatase Total Creatine Kinase CK-MB (CK-2) Rel Index Troponin T Albumin LDL Cholesterol Direct PTH Intact Salicylates Acetaminophen Crossmatch 03/30/19 03/30/19 03/30/19 10:13 10:13 23:53 WBC RBC 2.81 L Hgb 7.7 L Hct 24.3 L MCV MCH 27 L MCHC RDW 19.0 H Plt Count Lymph % (Auto) 12.2 L Harvey % (Auto) Eos % (Auto) 7.9 H Baso % (Auto) Lymph # 1.0 L Harvey # Eos # 0.6 H Baso # Seg Neutrophils % 72.3 H Seg Neuts % (Manual) Lymphocytes % (Manual) Eosinophils % (Manual) Seg Neutrophils # Lymphocytes # (Manual) Eosinophils # (Manual) PT INR D-Dimer POC ABG pH POC ABG pCO2 POC ABG pO2 ABG pO2 ABG HCO3 ABG Base Excess ABG Hemoglobin Oxyhemoglobin Sodium Potassium 5.1 H Chloride 96.5 L Carbon Dioxide BUN 73 H Creatinine 3.9 H D Glucose POC Glucose 114 H Calcium 10.3 H Phosphorus 6.30 H Magnesium 2.70 H ALT Alkaline Phosphatase 185 H Total Creatine Kinase CK-MB (CK-2) Rel Index Troponin T Albumin 2.6 L LDL Cholesterol Direct PTH Intact Salicylates Acetaminophen Crossmatch 03/31/19 03/31/19 03/31/19 05:45 10:26 10:26 WBC RBC 3.01 L Hgb 8.2 L Hct 26.4 L MCV MCH 27 L MCHC 31 L RDW 20.3 H Plt Count Lymph % (Auto) 13.3 L Harvey % (Auto) Eos % (Auto) 7.2 H Baso % (Auto) Lymph # 1.1 L Harvey # Eos # 0.6 H Baso # Seg Neutrophils % 72.1 H Seg Neuts % (Manual) Lymphocytes % (Manual) Eosinophils % (Manual) Seg Neutrophils # Lymphocytes # (Manual) Eosinophils # (Manual) PT INR D-Dimer POC ABG pH POC ABG pCO2 POC ABG pO2 ABG pO2 ABG HCO3 ABG Base Excess ABG Hemoglobin Oxyhemoglobin Sodium Potassium Chloride 96.9 L Carbon Dioxide 33 H BUN 37 H Creatinine 2.4 H Glucose POC Glucose 108 H Calcium 10.3 H Phosphorus Magnesium ALT Alkaline Phosphatase Total Creatine Kinase CK-MB (CK-2) Rel Index Troponin T Albumin LDL Cholesterol Direct PTH Intact Salicylates Acetaminophen Crossmatch 03/31/19 04/01/19 04/01/19 12:38 05:48 12:06 WBC RBC Hgb Hct MCV MCH MCHC RDW Plt Count Lymph % (Auto) Harvey % (Auto) Eos % (Auto) Baso % (Auto) Lymph # Harvey # Eos # Baso # Seg Neutrophils % Seg Neuts % (Manual) Lymphocytes % (Manual) Eosinophils % (Manual) Seg Neutrophils # Lymphocytes # (Manual) Eosinophils # (Manual) PT INR D-Dimer POC ABG pH POC ABG pCO2 POC ABG pO2 ABG pO2 ABG HCO3 ABG Base Excess ABG Hemoglobin Oxyhemoglobin Sodium Potassium Chloride Carbon Dioxide BUN Creatinine Glucose POC Glucose 108 H 114 H 111 H Calcium Phosphorus Magnesium ALT Alkaline Phosphatase Total Creatine Kinase CK-MB (CK-2) Rel Index Troponin T Albumin LDL Cholesterol Direct PTH Intact Salicylates Acetaminophen Crossmatch 04/01/19 04/02/19 04/04/19 18:24 00:36 23:55 WBC RBC Hgb Hct MCV MCH MCHC RDW Plt Count Lymph % (Auto) Harvey % (Auto) Eos % (Auto) Baso % (Auto) Lymph # Harvey # Eos # Baso # Seg Neutrophils % Seg Neuts % (Manual) Lymphocytes % (Manual) Eosinophils % (Manual) Seg Neutrophils # Lymphocytes # (Manual) Eosinophils # (Manual) PT INR D-Dimer POC ABG pH POC ABG pCO2 POC ABG pO2 ABG pO2 ABG HCO3 ABG Base Excess ABG Hemoglobin Oxyhemoglobin Sodium Potassium Chloride Carbon Dioxide BUN Creatinine Glucose POC Glucose 113 H 117 H 109 H Calcium Phosphorus Magnesium ALT Alkaline Phosphatase Total Creatine Kinase CK-MB (CK-2) Rel Index Troponin T Albumin LDL Cholesterol Direct PTH Intact Salicylates Acetaminophen Crossmatch 04/06/19 04/06/19 04/06/19 00:11 06:02 23:30 WBC RBC Hgb Hct MCV MCH MCHC RDW Plt Count Lymph % (Auto) Harvey % (Auto) Eos % (Auto) Baso % (Auto) Lymph # Harvey # Eos # Baso # Seg Neutrophils % Seg Neuts % (Manual) Lymphocytes % (Manual) Eosinophils % (Manual) Seg Neutrophils # Lymphocytes # (Manual) Eosinophils # (Manual) PT INR D-Dimer POC ABG pH POC ABG pCO2 POC ABG pO2 ABG pO2 ABG HCO3 ABG Base Excess ABG Hemoglobin Oxyhemoglobin Sodium Potassium Chloride Carbon Dioxide BUN Creatinine Glucose POC Glucose 116 H 112 H 112 H Calcium Phosphorus Magnesium ALT Alkaline Phosphatase Total Creatine Kinase CK-MB (CK-2) Rel Index Troponin T Albumin LDL Cholesterol Direct PTH Intact Salicylates Acetaminophen Crossmatch 04/08/19 04/08/19 04/08/19 02:23 06:19 13:01 WBC RBC Hgb Hct MCV MCH MCHC RDW Plt Count Lymph % (Auto) Harvey % (Auto) Eos % (Auto) Baso % (Auto) Lymph # Harvey # Eos # Baso # Seg Neutrophils % Seg Neuts % (Manual) Lymphocytes % (Manual) Eosinophils % (Manual) Seg Neutrophils # Lymphocytes # (Manual) Eosinophils # (Manual) PT INR D-Dimer POC ABG pH POC ABG pCO2 POC ABG pO2 ABG pO2 ABG HCO3 ABG Base Excess ABG Hemoglobin Oxyhemoglobin Sodium Potassium Chloride Carbon Dioxide BUN Creatinine Glucose POC Glucose 144 H 126 H 118 H Calcium Phosphorus Magnesium ALT Alkaline Phosphatase Total Creatine Kinase CK-MB (CK-2) Rel Index Troponin T Albumin LDL Cholesterol Direct PTH Intact Salicylates Acetaminophen Crossmatch 04/08/19 04/09/19 04/10/19 23:28 05:52 06:34 WBC RBC Hgb Hct MCV MCH MCHC RDW Plt Count Lymph % (Auto) Harvey % (Auto) Eos % (Auto) Baso % (Auto) Lymph # Harvey # Eos # Baso # Seg Neutrophils % Seg Neuts % (Manual) Lymphocytes % (Manual) Eosinophils % (Manual) Seg Neutrophils # Lymphocytes # (Manual) Eosinophils # (Manual) PT INR D-Dimer POC ABG pH POC ABG pCO2 POC ABG pO2 ABG pO2 ABG HCO3 ABG Base Excess ABG Hemoglobin Oxyhemoglobin Sodium Potassium Chloride Carbon Dioxide BUN Creatinine Glucose POC Glucose 119 H 116 H 114 H Calcium Phosphorus Magnesium ALT Alkaline Phosphatase Total Creatine Kinase CK-MB (CK-2) Rel Index Troponin T Albumin LDL Cholesterol Direct PTH Intact Salicylates Acetaminophen Crossmatch 04/10/19 04/10/19 04/11/19 12:34 18:59 00:36 WBC RBC Hgb Hct MCV MCH MCHC RDW Plt Count Lymph % (Auto) Harvey % (Auto) Eos % (Auto) Baso % (Auto) Lymph # Harvey # Eos # Baso # Seg Neutrophils % Seg Neuts % (Manual) Lymphocytes % (Manual) Eosinophils % (Manual) Seg Neutrophils # Lymphocytes # (Manual) Eosinophils # (Manual) PT INR D-Dimer POC ABG pH POC ABG pCO2 POC ABG pO2 ABG pO2 ABG HCO3 ABG Base Excess ABG Hemoglobin Oxyhemoglobin Sodium Potassium Chloride Carbon Dioxide BUN Creatinine Glucose POC Glucose 112 H 109 H 124 H Calcium Phosphorus Magnesium ALT Alkaline Phosphatase Total Creatine Kinase CK-MB (CK-2) Rel Index Troponin T Albumin LDL Cholesterol Direct PTH Intact Salicylates Acetaminophen Crossmatch 04/11/19 04/11/19 04/12/19 08:01 17:25 02:18 WBC RBC Hgb Hct MCV MCH MCHC RDW Plt Count Lymph % (Auto) Harvey % (Auto) Eos % (Auto) Baso % (Auto) Lymph # Harvey # Eos # Baso # Seg Neutrophils % Seg Neuts % (Manual) Lymphocytes % (Manual) Eosinophils % (Manual) Seg Neutrophils # Lymphocytes # (Manual) Eosinophils # (Manual) PT INR D-Dimer POC ABG pH POC ABG pCO2 POC ABG pO2 ABG pO2 ABG HCO3 ABG Base Excess ABG Hemoglobin Oxyhemoglobin Sodium Potassium Chloride Carbon Dioxide BUN Creatinine Glucose POC Glucose 118 H 106 H 125 H Calcium Phosphorus Magnesium ALT Alkaline Phosphatase Total Creatine Kinase CK-MB (CK-2) Rel Index Troponin T Albumin LDL Cholesterol Direct PTH Intact Salicylates Acetaminophen Crossmatch 04/12/19 04/12/19 04/12/19 06:24 12:22 17:13 WBC RBC Hgb Hct MCV MCH MCHC RDW Plt Count Lymph % (Auto) Harvey % (Auto) Eos % (Auto) Baso % (Auto) Lymph # Harvey # Eos # Baso # Seg Neutrophils % Seg Neuts % (Manual) Lymphocytes % (Manual) Eosinophils % (Manual) Seg Neutrophils # Lymphocytes # (Manual) Eosinophils # (Manual) PT INR D-Dimer POC ABG pH POC ABG pCO2 POC ABG pO2 ABG pO2 ABG HCO3 ABG Base Excess ABG Hemoglobin Oxyhemoglobin Sodium Potassium Chloride Carbon Dioxide BUN Creatinine Glucose POC Glucose 128 H 114 H 110 H Calcium Phosphorus Magnesium ALT Alkaline Phosphatase Total Creatine Kinase CK-MB (CK-2) Rel Index Troponin T Albumin LDL Cholesterol Direct PTH Intact Salicylates Acetaminophen Crossmatch 04/13/19 04/13/19 04/13/19 06:59 07:31 07:31 WBC RBC 3.34 L Hgb 8.9 L Hct 28.6 L MCV MCH 27 L MCHC 31 L RDW 19.6 H Plt Count Lymph % (Auto) Harvey % (Auto) Eos % (Auto) Baso % (Auto) Lymph # Harvey # Eos # Baso # Seg Neutrophils % Seg Neuts % (Manual) Lymphocytes % (Manual) Eosinophils % (Manual) Seg Neutrophils # Lymphocytes # (Manual) Eosinophils # (Manual) PT INR D-Dimer POC ABG pH POC ABG pCO2 POC ABG pO2 ABG pO2 ABG HCO3 ABG Base Excess ABG Hemoglobin Oxyhemoglobin Sodium Potassium Chloride 96.4 L Carbon Dioxide 33 H BUN 66 H Creatinine 4.5 H Glucose 103 H POC Glucose 107 H Calcium Phosphorus Magnesium ALT Alkaline Phosphatase Total Creatine Kinase CK-MB (CK-2) Rel Index Troponin T Albumin LDL Cholesterol Direct PTH Intact Salicylates Acetaminophen Crossmatch 04/13/19 04/14/19 04/14/19 23:43 05:50 13:07 WBC RBC Hgb Hct MCV MCH MCHC RDW Plt Count Lymph % (Auto) Harvey % (Auto) Eos % (Auto) Baso % (Auto) Lymph # Harvey # Eos # Baso # Seg Neutrophils % Seg Neuts % (Manual) Lymphocytes % (Manual) Eosinophils % (Manual) Seg Neutrophils # Lymphocytes # (Manual) Eosinophils # (Manual) PT INR D-Dimer POC ABG pH POC ABG pCO2 POC ABG pO2 ABG pO2 ABG HCO3 ABG Base Excess ABG Hemoglobin Oxyhemoglobin Sodium Potassium Chloride Carbon Dioxide BUN Creatinine Glucose POC Glucose 119 H 112 H 112 H Calcium Phosphorus Magnesium ALT Alkaline Phosphatase Total Creatine Kinase CK-MB (CK-2) Rel Index Troponin T Albumin LDL Cholesterol Direct PTH Intact Salicylates Acetaminophen Crossmatch 04/14/19 04/15/19 04/15/19 18:35 01:18 05:17 WBC RBC Hgb Hct MCV MCH MCHC RDW Plt Count Lymph % (Auto) Harvey % (Auto) Eos % (Auto) Baso % (Auto) Lymph # Harvey # Eos # Baso # Seg Neutrophils % Seg Neuts % (Manual) Lymphocytes % (Manual) Eosinophils % (Manual) Seg Neutrophils # Lymphocytes # (Manual) Eosinophils # (Manual) PT INR D-Dimer POC ABG pH POC ABG pCO2 POC ABG pO2 ABG pO2 ABG HCO3 ABG Base Excess ABG Hemoglobin Oxyhemoglobin Sodium Potassium Chloride Carbon Dioxide BUN Creatinine Glucose POC Glucose 114 H 114 H 114 H Calcium Phosphorus Magnesium ALT Alkaline Phosphatase Total Creatine Kinase CK-MB (CK-2) Rel Index Troponin T Albumin LDL Cholesterol Direct PTH Intact Salicylates Acetaminophen Crossmatch 04/15/19 04/15/19 04/16/19 11:50 23:39 05:41 WBC RBC Hgb Hct MCV MCH MCHC RDW Plt Count Lymph % (Auto) Harvey % (Auto) Eos % (Auto) Baso % (Auto) Lymph # Harvey # Eos # Baso # Seg Neutrophils % Seg Neuts % (Manual) Lymphocytes % (Manual) Eosinophils % (Manual) Seg Neutrophils # Lymphocytes # (Manual) Eosinophils # (Manual) PT INR D-Dimer POC ABG pH POC ABG pCO2 POC ABG pO2 ABG pO2 ABG HCO3 ABG Base Excess ABG Hemoglobin Oxyhemoglobin Sodium Potassium Chloride Carbon Dioxide BUN Creatinine Glucose POC Glucose 109 H 115 H 125 H Calcium Phosphorus Magnesium ALT Alkaline Phosphatase Total Creatine Kinase CK-MB (CK-2) Rel Index Troponin T Albumin LDL Cholesterol Direct PTH Intact Salicylates Acetaminophen Crossmatch 04/16/19 04/17/19 04/17/19 12:53 01:00 12:38 WBC RBC Hgb Hct MCV MCH MCHC RDW Plt Count Lymph % (Auto) Harvey % (Auto) Eos % (Auto) Baso % (Auto) Lymph # Harvey # Eos # Baso # Seg Neutrophils % Seg Neuts % (Manual) Lymphocytes % (Manual) Eosinophils % (Manual) Seg Neutrophils # Lymphocytes # (Manual) Eosinophils # (Manual) PT INR D-Dimer POC ABG pH POC ABG pCO2 POC ABG pO2 ABG pO2 ABG HCO3 ABG Base Excess ABG Hemoglobin Oxyhemoglobin Sodium Potassium Chloride Carbon Dioxide BUN Creatinine Glucose POC Glucose 121 H 127 H 159 H Calcium Phosphorus Magnesium ALT Alkaline Phosphatase Total Creatine Kinase CK-MB (CK-2) Rel Index Troponin T Albumin LDL Cholesterol Direct PTH Intact Salicylates Acetaminophen Crossmatch 04/17/19 04/17/19 04/18/19 18:27 23:36 07:19 WBC RBC 3.49 L Hgb 9.0 L Hct 29.9 L MCV MCH 26 L MCHC 30 L RDW 20.0 H Plt Count Lymph % (Auto) Harvey % (Auto) Eos % (Auto) Baso % (Auto) Lymph # Harvey # Eos # Baso # Seg Neutrophils % Seg Neuts % (Manual) Lymphocytes % (Manual) Eosinophils % (Manual) Seg Neutrophils # Lymphocytes # (Manual) Eosinophils # (Manual) PT INR D-Dimer POC ABG pH POC ABG pCO2 POC ABG pO2 ABG pO2 ABG HCO3 ABG Base Excess ABG Hemoglobin Oxyhemoglobin Sodium Potassium Chloride Carbon Dioxide BUN Creatinine Glucose POC Glucose 109 H 134 H Calcium Phosphorus Magnesium ALT Alkaline Phosphatase Total Creatine Kinase CK-MB (CK-2) Rel Index Troponin T Albumin LDL Cholesterol Direct PTH Intact Salicylates Acetaminophen Crossmatch 04/18/19 04/18/19 04/18/19 07:19 12:16 17:09 WBC RBC Hgb Hct MCV MCH MCHC RDW Plt Count Lymph % (Auto) Harvey % (Auto) Eos % (Auto) Baso % (Auto) Lymph # Harvey # Eos # Baso # Seg Neutrophils % Seg Neuts % (Manual) Lymphocytes % (Manual) Eosinophils % (Manual) Seg Neutrophils # Lymphocytes # (Manual) Eosinophils # (Manual) PT INR D-Dimer POC ABG pH POC ABG pCO2 POC ABG pO2 ABG pO2 ABG HCO3 ABG Base Excess ABG Hemoglobin Oxyhemoglobin Sodium Potassium Chloride Carbon Dioxide BUN 41 H Creatinine 2.9 H Glucose 122 H POC Glucose 125 H 131 H Calcium Phosphorus Magnesium ALT Alkaline Phosphatase Total Creatine Kinase CK-MB (CK-2) Rel Index Troponin T Albumin LDL Cholesterol Direct PTH Intact Salicylates Acetaminophen Crossmatch 04/18/19 04/19/19 04/19/19 23:57 05:55 11:35 WBC RBC Hgb Hct MCV MCH MCHC RDW Plt Count Lymph % (Auto) Harvey % (Auto) Eos % (Auto) Baso % (Auto) Lymph # Harvey # Eos # Baso # Seg Neutrophils % Seg Neuts % (Manual) Lymphocytes % (Manual) Eosinophils % (Manual) Seg Neutrophils # Lymphocytes # (Manual) Eosinophils # (Manual) PT INR D-Dimer POC ABG pH POC ABG pCO2 POC ABG pO2 ABG pO2 ABG HCO3 ABG Base Excess ABG Hemoglobin Oxyhemoglobin Sodium Potassium Chloride Carbon Dioxide BUN Creatinine Glucose POC Glucose 159 H 144 H 177 H Calcium Phosphorus Magnesium ALT Alkaline Phosphatase Total Creatine Kinase CK-MB (CK-2) Rel Index Troponin T Albumin LDL Cholesterol Direct PTH Intact Salicylates Acetaminophen Crossmatch 04/19/19 04/20/19 04/20/19 16:36 02:05 06:28 WBC RBC Hgb Hct MCV MCH MCHC RDW Plt Count Lymph % (Auto) Harvey % (Auto) Eos % (Auto) Baso % (Auto) Lymph # Harvey # Eos # Baso # Seg Neutrophils % Seg Neuts % (Manual) Lymphocytes % (Manual) Eosinophils % (Manual) Seg Neutrophils # Lymphocytes # (Manual) Eosinophils # (Manual) PT INR D-Dimer POC ABG pH POC ABG pCO2 POC ABG pO2 ABG pO2 ABG HCO3 ABG Base Excess ABG Hemoglobin Oxyhemoglobin Sodium Potassium Chloride Carbon Dioxide BUN Creatinine Glucose POC Glucose 134 H 142 H 132 H Calcium Phosphorus Magnesium ALT Alkaline Phosphatase Total Creatine Kinase CK-MB (CK-2) Rel Index Troponin T Albumin LDL Cholesterol Direct PTH Intact Salicylates Acetaminophen Crossmatch 04/20/19 04/20/19 04/21/19 12:37 23:34 05:59 WBC RBC Hgb Hct MCV MCH MCHC RDW Plt Count Lymph % (Auto) Harvey % (Auto) Eos % (Auto) Baso % (Auto) Lymph # Harvey # Eos # Baso # Seg Neutrophils % Seg Neuts % (Manual) Lymphocytes % (Manual) Eosinophils % (Manual) Seg Neutrophils # Lymphocytes # (Manual) Eosinophils # (Manual) PT INR D-Dimer POC ABG pH POC ABG pCO2 POC ABG pO2 ABG pO2 ABG HCO3 ABG Base Excess ABG Hemoglobin Oxyhemoglobin Sodium Potassium Chloride Carbon Dioxide BUN Creatinine Glucose POC Glucose 163 H 166 H 140 H Calcium Phosphorus Magnesium ALT Alkaline Phosphatase Total Creatine Kinase CK-MB (CK-2) Rel Index Troponin T Albumin LDL Cholesterol Direct PTH Intact Salicylates Acetaminophen Crossmatch 04/21/19 04/21/19 04/21/19 12:07 17:22 23:43 WBC RBC Hgb Hct MCV MCH MCHC RDW Plt Count Lymph % (Auto) Harvey % (Auto) Eos % (Auto) Baso % (Auto) Lymph # Harvey # Eos # Baso # Seg Neutrophils % Seg Neuts % (Manual) Lymphocytes % (Manual) Eosinophils % (Manual) Seg Neutrophils # Lymphocytes # (Manual) Eosinophils # (Manual) PT INR D-Dimer POC ABG pH POC ABG pCO2 POC ABG pO2 ABG pO2 ABG HCO3 ABG Base Excess ABG Hemoglobin Oxyhemoglobin Sodium Potassium Chloride Carbon Dioxide BUN Creatinine Glucose POC Glucose 135 H 141 H 138 H Calcium Phosphorus Magnesium ALT Alkaline Phosphatase Total Creatine Kinase CK-MB (CK-2) Rel Index Troponin T Albumin LDL Cholesterol Direct PTH Intact Salicylates Acetaminophen Crossmatch 04/22/19 04/22/19 04/22/19 05:12 18:24 23:49 WBC RBC Hgb Hct MCV MCH MCHC RDW Plt Count Lymph % (Auto) Harvey % (Auto) Eos % (Auto) Baso % (Auto) Lymph # Harvey # Eos # Baso # Seg Neutrophils % Seg Neuts % (Manual) Lymphocytes % (Manual) Eosinophils % (Manual) Seg Neutrophils # Lymphocytes # (Manual) Eosinophils # (Manual) PT INR D-Dimer POC ABG pH POC ABG pCO2 POC ABG pO2 ABG pO2 ABG HCO3 ABG Base Excess ABG Hemoglobin Oxyhemoglobin Sodium Potassium Chloride Carbon Dioxide BUN Creatinine Glucose POC Glucose 141 H 137 H 142 H Calcium Phosphorus Magnesium ALT Alkaline Phosphatase Total Creatine Kinase CK-MB (CK-2) Rel Index Troponin T Albumin LDL Cholesterol Direct PTH Intact Salicylates Acetaminophen Crossmatch 04/23/19 04/23/19 04/23/19 05:53 08:13 11:58 WBC RBC Hgb Hct MCV MCH MCHC RDW Plt Count Lymph % (Auto) Harvey % (Auto) Eos % (Auto) Baso % (Auto) Lymph # Harvey # Eos # Baso # Seg Neutrophils % Seg Neuts % (Manual) Lymphocytes % (Manual) Eosinophils % (Manual) Seg Neutrophils # Lymphocytes # (Manual) Eosinophils # (Manual) PT INR D-Dimer POC ABG pH POC ABG pCO2 POC ABG pO2 ABG pO2 ABG HCO3 ABG Base Excess ABG Hemoglobin Oxyhemoglobin Sodium Potassium Chloride Carbon Dioxide BUN Creatinine Glucose POC Glucose 132 H 154 H 165 H Calcium Phosphorus Magnesium ALT Alkaline Phosphatase Total Creatine Kinase CK-MB (CK-2) Rel Index Troponin T Albumin LDL Cholesterol Direct PTH Intact Salicylates Acetaminophen Crossmatch 04/23/19 04/24/19 04/24/19 16:28 00:28 07:00 WBC RBC Hgb Hct MCV MCH MCHC RDW Plt Count Lymph % (Auto) Harvey % (Auto) Eos % (Auto) Baso % (Auto) Lymph # Harvey # Eos # Baso # Seg Neutrophils % Seg Neuts % (Manual) Lymphocytes % (Manual) Eosinophils % (Manual) Seg Neutrophils # Lymphocytes # (Manual) Eosinophils # (Manual) PT INR D-Dimer POC ABG pH POC ABG pCO2 POC ABG pO2 ABG pO2 ABG HCO3 ABG Base Excess ABG Hemoglobin Oxyhemoglobin Sodium Potassium Chloride Carbon Dioxide BUN Creatinine Glucose POC Glucose 136 H 140 H 141 H Calcium Phosphorus Magnesium ALT Alkaline Phosphatase Total Creatine Kinase CK-MB (CK-2) Rel Index Troponin T Albumin LDL Cholesterol Direct PTH Intact Salicylates Acetaminophen Crossmatch 04/24/19 04/24/19 04/25/19 12:38 18:57 00:38 WBC RBC Hgb Hct MCV MCH MCHC RDW Plt Count Lymph % (Auto) Harvey % (Auto) Eos % (Auto) Baso % (Auto) Lymph # Harvey # Eos # Baso # Seg Neutrophils % Seg Neuts % (Manual) Lymphocytes % (Manual) Eosinophils % (Manual) Seg Neutrophils # Lymphocytes # (Manual) Eosinophils # (Manual) PT INR D-Dimer POC ABG pH POC ABG pCO2 POC ABG pO2 ABG pO2 ABG HCO3 ABG Base Excess ABG Hemoglobin Oxyhemoglobin Sodium Potassium Chloride Carbon Dioxide BUN Creatinine Glucose POC Glucose 152 H 166 H 128 H Calcium Phosphorus Magnesium ALT Alkaline Phosphatase Total Creatine Kinase CK-MB (CK-2) Rel Index Troponin T Albumin LDL Cholesterol Direct PTH Intact Salicylates Acetaminophen Crossmatch 04/25/19 04/25/19 04/25/19 05:44 13:43 18:34 WBC RBC Hgb Hct MCV MCH MCHC RDW Plt Count Lymph % (Auto) Harvey % (Auto) Eos % (Auto) Baso % (Auto) Lymph # Harvey # Eos # Baso # Seg Neutrophils % Seg Neuts % (Manual) Lymphocytes % (Manual) Eosinophils % (Manual) Seg Neutrophils # Lymphocytes # (Manual) Eosinophils # (Manual) PT INR D-Dimer POC ABG pH POC ABG pCO2 POC ABG pO2 ABG pO2 ABG HCO3 ABG Base Excess ABG Hemoglobin Oxyhemoglobin Sodium Potassium Chloride Carbon Dioxide BUN Creatinine Glucose POC Glucose 153 H 186 H 124 H Calcium Phosphorus Magnesium ALT Alkaline Phosphatase Total Creatine Kinase CK-MB (CK-2) Rel Index Troponin T Albumin LDL Cholesterol Direct PTH Intact Salicylates Acetaminophen Crossmatch 04/26/19 04/26/19 04/26/19 00:59 05:52 10:12 WBC 11.5 H RBC 2.84 L Hgb 7.4 L Hct 23.3 L MCV 82 L MCH 26 L MCHC RDW 20.3 H Plt Count Lymph % (Auto) 7.5 L Harvey % (Auto) 7.5 H Eos % (Auto) 5.3 H Baso % (Auto) Lymph # 0.9 L Harvey # 0.9 H Eos # 0.6 H Baso # Seg Neutrophils % 79.2 H Seg Neuts % (Manual) Lymphocytes % (Manual) Eosinophils % (Manual) Seg Neutrophils # 9.1 H Lymphocytes # (Manual) Eosinophils # (Manual) PT INR D-Dimer POC ABG pH POC ABG pCO2 POC ABG pO2 ABG pO2 ABG HCO3 ABG Base Excess ABG Hemoglobin Oxyhemoglobin Sodium Potassium Chloride Carbon Dioxide BUN Creatinine Glucose POC Glucose 163 H 146 H Calcium Phosphorus Magnesium ALT Alkaline Phosphatase Total Creatine Kinase CK-MB (CK-2) Rel Index Troponin T Albumin LDL Cholesterol Direct PTH Intact Salicylates Acetaminophen Crossmatch 04/26/19 04/26/19 04/26/19 10:12 12:15 19:00 WBC RBC Hgb Hct MCV MCH MCHC RDW Plt Count Lymph % (Auto) Harvey % (Auto) Eos % (Auto) Baso % (Auto) Lymph # Harvey # Eos # Baso # Seg Neutrophils % Seg Neuts % (Manual) Lymphocytes % (Manual) Eosinophils % (Manual) Seg Neutrophils # Lymphocytes # (Manual) Eosinophils # (Manual) PT INR D-Dimer POC ABG pH POC ABG pCO2 POC ABG pO2 ABG pO2 ABG HCO3 ABG Base Excess ABG Hemoglobin Oxyhemoglobin Sodium 130 L Potassium Chloride 87.4 L Carbon Dioxide BUN 93 H Creatinine 4.2 H Glucose 140 H POC Glucose 155 H 179 H Calcium Phosphorus Magnesium ALT Alkaline Phosphatase Total Creatine Kinase CK-MB (CK-2) Rel Index Troponin T Albumin LDL Cholesterol Direct PTH Intact Salicylates Acetaminophen Crossmatch 04/27/19 04/27/19 04/27/19 00:23 06:34 17:13 WBC RBC Hgb Hct MCV MCH MCHC RDW Plt Count Lymph % (Auto) Harvey % (Auto) Eos % (Auto) Baso % (Auto) Lymph # Harvey # Eos # Baso # Seg Neutrophils % Seg Neuts % (Manual) Lymphocytes % (Manual) Eosinophils % (Manual) Seg Neutrophils # Lymphocytes # (Manual) Eosinophils # (Manual) PT INR D-Dimer POC ABG pH POC ABG pCO2 POC ABG pO2 ABG pO2 ABG HCO3 ABG Base Excess ABG Hemoglobin Oxyhemoglobin Sodium Potassium Chloride Carbon Dioxide BUN Creatinine Glucose POC Glucose 158 H 140 H 152 H Calcium Phosphorus Magnesium ALT Alkaline Phosphatase Total Creatine Kinase CK-MB (CK-2) Rel Index Troponin T Albumin LDL Cholesterol Direct PTH Intact Salicylates Acetaminophen Crossmatch 04/27/19 04/28/19 04/28/19 23:50 05:18 11:37 WBC RBC Hgb Hct MCV MCH MCHC RDW Plt Count Lymph % (Auto) Harvey % (Auto) Eos % (Auto) Baso % (Auto) Lymph # Harvey # Eos # Baso # Seg Neutrophils % Seg Neuts % (Manual) Lymphocytes % (Manual) Eosinophils % (Manual) Seg Neutrophils # Lymphocytes # (Manual) Eosinophils # (Manual) PT INR D-Dimer POC ABG pH POC ABG pCO2 POC ABG pO2 ABG pO2 ABG HCO3 ABG Base Excess ABG Hemoglobin Oxyhemoglobin Sodium Potassium Chloride Carbon Dioxide BUN Creatinine Glucose POC Glucose 160 H 145 H 177 H Calcium Phosphorus Magnesium ALT Alkaline Phosphatase Total Creatine Kinase CK-MB (CK-2) Rel Index Troponin T Albumin LDL Cholesterol Direct PTH Intact Salicylates Acetaminophen Crossmatch 04/28/19 04/28/19 04/29/19 18:31 23:47 05:50 WBC RBC Hgb Hct MCV MCH MCHC RDW Plt Count Lymph % (Auto) Harvey % (Auto) Eos % (Auto) Baso % (Auto) Lymph # Harvey # Eos # Baso # Seg Neutrophils % Seg Neuts % (Manual) Lymphocytes % (Manual) Eosinophils % (Manual) Seg Neutrophils # Lymphocytes # (Manual) Eosinophils # (Manual) PT INR D-Dimer POC ABG pH POC ABG pCO2 POC ABG pO2 ABG pO2 ABG HCO3 ABG Base Excess ABG Hemoglobin Oxyhemoglobin Sodium Potassium Chloride Carbon Dioxide BUN Creatinine Glucose POC Glucose 153 H 117 H 177 H Calcium Phosphorus Magnesium ALT Alkaline Phosphatase Total Creatine Kinase CK-MB (CK-2) Rel Index Troponin T Albumin LDL Cholesterol Direct PTH Intact Salicylates Acetaminophen Crossmatch 04/29/19 04/30/19 04/30/19 17:04 01:02 06:42 WBC RBC Hgb Hct MCV MCH MCHC RDW Plt Count Lymph % (Auto) Harvey % (Auto) Eos % (Auto) Baso % (Auto) Lymph # Harvey # Eos # Baso # Seg Neutrophils % Seg Neuts % (Manual) Lymphocytes % (Manual) Eosinophils % (Manual) Seg Neutrophils # Lymphocytes # (Manual) Eosinophils # (Manual) PT INR D-Dimer POC ABG pH POC ABG pCO2 POC ABG pO2 ABG pO2 ABG HCO3 ABG Base Excess ABG Hemoglobin Oxyhemoglobin Sodium Potassium Chloride Carbon Dioxide BUN Creatinine Glucose POC Glucose 205 H 143 H 145 H Calcium Phosphorus Magnesium ALT Alkaline Phosphatase Total Creatine Kinase CK-MB (CK-2) Rel Index Troponin T Albumin LDL Cholesterol Direct PTH Intact Salicylates Acetaminophen Crossmatch 04/30/19 04/30/19 04/30/19 11:31 18:12 23:38 WBC RBC Hgb Hct MCV MCH MCHC RDW Plt Count Lymph % (Auto) Harvey % (Auto) Eos % (Auto) Baso % (Auto) Lymph # Harvey # Eos # Baso # Seg Neutrophils % Seg Neuts % (Manual) Lymphocytes % (Manual) Eosinophils % (Manual) Seg Neutrophils # Lymphocytes # (Manual) Eosinophils # (Manual) PT INR D-Dimer POC ABG pH POC ABG pCO2 POC ABG pO2 ABG pO2 ABG HCO3 ABG Base Excess ABG Hemoglobin Oxyhemoglobin Sodium Potassium Chloride Carbon Dioxide BUN Creatinine Glucose POC Glucose 162 H 117 H 139 H Calcium Phosphorus Magnesium ALT Alkaline Phosphatase Total Creatine Kinase CK-MB (CK-2) Rel Index Troponin T Albumin LDL Cholesterol Direct PTH Intact Salicylates Acetaminophen Crossmatch 05/01/19 05/01/19 05/02/19 06:06 23:41 05:59 WBC RBC Hgb Hct MCV MCH MCHC RDW Plt Count Lymph % (Auto) Harvey % (Auto) Eos % (Auto) Baso % (Auto) Lymph # Harvey # Eos # Baso # Seg Neutrophils % Seg Neuts % (Manual) Lymphocytes % (Manual) Eosinophils % (Manual) Seg Neutrophils # Lymphocytes # (Manual) Eosinophils # (Manual) PT INR D-Dimer POC ABG pH POC ABG pCO2 POC ABG pO2 ABG pO2 ABG HCO3 ABG Base Excess ABG Hemoglobin Oxyhemoglobin Sodium Potassium Chloride Carbon Dioxide BUN Creatinine Glucose POC Glucose 150 H 140 H 130 H Calcium Phosphorus Magnesium ALT Alkaline Phosphatase Total Creatine Kinase CK-MB (CK-2) Rel Index Troponin T Albumin LDL Cholesterol Direct PTH Intact Salicylates Acetaminophen Crossmatch 05/02/19 05/02/19 05/03/19 11:55 18:10 00:15 WBC RBC Hgb Hct MCV MCH MCHC RDW Plt Count Lymph % (Auto) Harvey % (Auto) Eos % (Auto) Baso % (Auto) Lymph # Harvey # Eos # Baso # Seg Neutrophils % Seg Neuts % (Manual) Lymphocytes % (Manual) Eosinophils % (Manual) Seg Neutrophils # Lymphocytes # (Manual) Eosinophils # (Manual) PT INR D-Dimer POC ABG pH POC ABG pCO2 POC ABG pO2 ABG pO2 ABG HCO3 ABG Base Excess ABG Hemoglobin Oxyhemoglobin Sodium Potassium Chloride Carbon Dioxide BUN Creatinine Glucose POC Glucose 146 H 141 H 145 H Calcium Phosphorus Magnesium ALT Alkaline Phosphatase Total Creatine Kinase CK-MB (CK-2) Rel Index Troponin T Albumin LDL Cholesterol Direct PTH Intact Salicylates Acetaminophen Crossmatch 05/03/19 05/03/19 05/03/19 05:49 05:49 06:01 WBC RBC 2.84 L Hgb 7.2 L Hct 22.9 L MCV 81 L MCH 26 L MCHC RDW 20.6 H Plt Count 456 H Lymph % (Auto) 11.8 L Harvey % (Auto) Eos % (Auto) 10.6 H Baso % (Auto) Lymph # 1.1 L Harvey # Eos # 1.0 H Baso # Seg Neutrophils % 70.4 H Seg Neuts % (Manual) Lymphocytes % (Manual) Eosinophils % (Manual) Seg Neutrophils # Lymphocytes # (Manual) Eosinophils # (Manual) PT INR D-Dimer POC ABG pH POC ABG pCO2 POC ABG pO2 ABG pO2 ABG HCO3 ABG Base Excess ABG Hemoglobin Oxyhemoglobin Sodium Potassium Chloride 94.8 L Carbon Dioxide BUN 66 H Creatinine 3.6 H Glucose 129 H POC Glucose 135 H Calcium Phosphorus Magnesium ALT Alkaline Phosphatase Total Creatine Kinase CK-MB (CK-2) Rel Index Troponin T Albumin LDL Cholesterol Direct PTH Intact Salicylates Acetaminophen Crossmatch 05/03/19 05/03/19 05/04/19 11:04 18:40 00:06 WBC RBC Hgb Hct MCV MCH MCHC RDW Plt Count Lymph % (Auto) Harvey % (Auto) Eos % (Auto) Baso % (Auto) Lymph # Harvey # Eos # Baso # Seg Neutrophils % Seg Neuts % (Manual) Lymphocytes % (Manual) Eosinophils % (Manual) Seg Neutrophils # Lymphocytes # (Manual) Eosinophils # (Manual) PT INR D-Dimer POC ABG pH POC ABG pCO2 POC ABG pO2 ABG pO2 ABG HCO3 ABG Base Excess ABG Hemoglobin Oxyhemoglobin Sodium Potassium Chloride Carbon Dioxide BUN Creatinine Glucose POC Glucose 191 H 167 H 137 H Calcium Phosphorus Magnesium ALT Alkaline Phosphatase Total Creatine Kinase CK-MB (CK-2) Rel Index Troponin T Albumin LDL Cholesterol Direct PTH Intact Salicylates Acetaminophen Crossmatch 05/04/19 05/04/19 05/04/19 06:44 07:30 07:30 WBC 15.8 H RBC 2.74 L Hgb 6.7 L Hct 22.2 L MCV 81 L MCH 24 L MCHC 30 L RDW 20.4 H Plt Count 450 H Lymph % (Auto) 5.1 L Harvey % (Auto) Eos % (Auto) Baso % (Auto) Lymph # 0.8 L Harvey # Eos # 0.6 H Baso # Seg Neutrophils % 86.3 H Seg Neuts % (Manual) Lymphocytes % (Manual) Eosinophils % (Manual) Seg Neutrophils # 13.6 H Lymphocytes # (Manual) Eosinophils # (Manual) PT INR D-Dimer POC ABG pH POC ABG pCO2 POC ABG pO2 ABG pO2 ABG HCO3 ABG Base Excess ABG Hemoglobin Oxyhemoglobin Sodium Potassium Chloride 95.2 L Carbon Dioxide BUN 92 H Creatinine 4.8 H Glucose 139 H POC Glucose 153 H Calcium Phosphorus Magnesium ALT Alkaline Phosphatase Total Creatine Kinase CK-MB (CK-2) Rel Index Troponin T Albumin LDL Cholesterol Direct PTH Intact Salicylates Acetaminophen Crossmatch 05/04/19 05/04/19 05/05/19 12:55 16:31 01:02 WBC RBC Hgb Hct MCV MCH MCHC RDW Plt Count Lymph % (Auto) Harvey % (Auto) Eos % (Auto) Baso % (Auto) Lymph # Harvey # Eos # Baso # Seg Neutrophils % Seg Neuts % (Manual) Lymphocytes % (Manual) Eosinophils % (Manual) Seg Neutrophils # Lymphocytes # (Manual) Eosinophils # (Manual) PT INR D-Dimer POC ABG pH POC ABG pCO2 POC ABG pO2 ABG pO2 ABG HCO3 ABG Base Excess ABG Hemoglobin Oxyhemoglobin Sodium Potassium Chloride Carbon Dioxide BUN Creatinine Glucose POC Glucose 169 H 171 H Calcium Phosphorus Magnesium ALT Alkaline Phosphatase Total Creatine Kinase CK-MB (CK-2) Rel Index Troponin T Albumin LDL Cholesterol Direct PTH Intact Salicylates Acetaminophen Crossmatch See Detail 05/05/19 05/05/19 05/05/19 05:26 05:36 11:48 WBC 12.6 H RBC 2.73 L Hgb 6.9 L Hct 22.3 L MCV 82 L MCH 25 L MCHC 31 L RDW 21.0 H Plt Count Lymph % (Auto) 8.9 L Harvey % (Auto) Eos % (Auto) Baso % (Auto) Lymph # 1.1 L Harvey # 0.9 H Eos # Baso # Seg Neutrophils % 80.7 H Seg Neuts % (Manual) Lymphocytes % (Manual) Eosinophils % (Manual) Seg Neutrophils # 10.2 H Lymphocytes # (Manual) Eosinophils # (Manual) PT INR D-Dimer POC ABG pH POC ABG pCO2 POC ABG pO2 ABG pO2 ABG HCO3 ABG Base Excess ABG Hemoglobin Oxyhemoglobin Sodium Potassium Chloride Carbon Dioxide BUN Creatinine Glucose POC Glucose 153 H 173 H Calcium Phosphorus Magnesium ALT Alkaline Phosphatase Total Creatine Kinase CK-MB (CK-2) Rel Index Troponin T Albumin LDL Cholesterol Direct PTH Intact Salicylates Acetaminophen Crossmatch 05/05/19 05/06/19 05/06/19 16:42 02:24 06:12 WBC RBC Hgb Hct MCV MCH MCHC RDW Plt Count Lymph % (Auto) Harvey % (Auto) Eos % (Auto) Baso % (Auto) Lymph # Harvey # Eos # Baso # Seg Neutrophils % Seg Neuts % (Manual) Lymphocytes % (Manual) Eosinophils % (Manual) Seg Neutrophils # Lymphocytes # (Manual) Eosinophils # (Manual) PT INR D-Dimer POC ABG pH POC ABG pCO2 POC ABG pO2 ABG pO2 ABG HCO3 ABG Base Excess ABG Hemoglobin Oxyhemoglobin Sodium Potassium Chloride Carbon Dioxide BUN Creatinine Glucose POC Glucose 126 H 138 H 151 H Calcium Phosphorus Magnesium ALT Alkaline Phosphatase Total Creatine Kinase CK-MB (CK-2) Rel Index Troponin T Albumin LDL Cholesterol Direct PTH Intact Salicylates Acetaminophen Crossmatch 05/06/19 05/06/19 05/06/19 08:15 16:48 23:16 WBC 11.8 H RBC 2.72 L Hgb 6.7 L Hct 21.7 L MCV 80 L MCH 25 L MCHC 31 L RDW 20.9 H Plt Count Lymph % (Auto) Harvey % (Auto) Eos % (Auto) Baso % (Auto) Lymph # Harvey # Eos # Baso # Seg Neutrophils % Seg Neuts % (Manual) Lymphocytes % (Manual) Eosinophils % (Manual) Seg Neutrophils # Lymphocytes # (Manual) Eosinophils # (Manual) PT INR D-Dimer POC ABG pH POC ABG pCO2 POC ABG pO2 ABG pO2 ABG HCO3 ABG Base Excess ABG Hemoglobin Oxyhemoglobin Sodium Potassium Chloride Carbon Dioxide BUN Creatinine Glucose POC Glucose 153 H 143 H Calcium Phosphorus Magnesium ALT Alkaline Phosphatase Total Creatine Kinase CK-MB (CK-2) Rel Index Troponin T Albumin LDL Cholesterol Direct PTH Intact Salicylates Acetaminophen Crossmatch 05/07/19 05/07/19 05/07/19 06:00 06:30 12:33 WBC RBC 3.53 L Hgb 9.1 L Hct 28.6 L D MCV 81 L MCH 26 L MCHC RDW 19.1 H Plt Count Lymph % (Auto) 9.6 L Harvey % (Auto) Eos % (Auto) 4.8 H Baso % (Auto) Lymph # 1.1 L Harvey # Eos # 0.5 H Baso # Seg Neutrophils % 77.8 H Seg Neuts % (Manual) Lymphocytes % (Manual) Eosinophils % (Manual) Seg Neutrophils # 8.6 H Lymphocytes # (Manual) Eosinophils # (Manual) PT INR D-Dimer POC ABG pH POC ABG pCO2 POC ABG pO2 ABG pO2 ABG HCO3 ABG Base Excess ABG Hemoglobin Oxyhemoglobin Sodium Potassium Chloride Carbon Dioxide BUN Creatinine Glucose POC Glucose 122 H 140 H Calcium Phosphorus Magnesium ALT Alkaline Phosphatase Total Creatine Kinase CK-MB (CK-2) Rel Index Troponin T Albumin LDL Cholesterol Direct PTH Intact Salicylates Acetaminophen Crossmatch 05/07/19 05/07/19 05/08/19 16:41 23:55 05:10 WBC 11.6 H RBC 3.54 L Hgb 9.1 L Hct 29.1 L MCV 82 L MCH 26 L MCHC 31 L RDW 19.6 H Plt Count Lymph % (Auto) 6.6 L Harvey % (Auto) Eos % (Auto) Baso % (Auto) 1.9 H Lymph # 0.8 L Harvey # Eos # Baso # 0.2 H Seg Neutrophils % 82.6 H Seg Neuts % (Manual) Lymphocytes % (Manual) Eosinophils % (Manual) Seg Neutrophils # 9.6 H Lymphocytes # (Manual) Eosinophils # (Manual) PT INR D-Dimer POC ABG pH POC ABG pCO2 POC ABG pO2 ABG pO2 ABG HCO3 ABG Base Excess ABG Hemoglobin Oxyhemoglobin Sodium Potassium Chloride Carbon Dioxide BUN Creatinine Glucose POC Glucose 143 H 153 H Calcium Phosphorus Magnesium ALT Alkaline Phosphatase Total Creatine Kinase CK-MB (CK-2) Rel Index Troponin T Albumin LDL Cholesterol Direct PTH Intact Salicylates Acetaminophen Crossmatch 05/08/19 06:09 WBC RBC Hgb Hct MCV MCH MCHC RDW Plt Count Lymph % (Auto) Harvey % (Auto) Eos % (Auto) Baso % (Auto) Lymph # Harvey # Eos # Baso # Seg Neutrophils % Seg Neuts % (Manual) Lymphocytes % (Manual) Eosinophils % (Manual) Seg Neutrophils # Lymphocytes # (Manual) Eosinophils # (Manual) PT INR D-Dimer POC ABG pH POC ABG pCO2 POC ABG pO2 ABG pO2 ABG HCO3 ABG Base Excess ABG Hemoglobin Oxyhemoglobin Sodium Potassium Chloride Carbon Dioxide BUN Creatinine Glucose POC Glucose 204 H Calcium Phosphorus Magnesium ALT Alkaline Phosphatase Total Creatine Kinase CK-MB (CK-2) Rel Index Troponin T Albumin LDL Cholesterol Direct PTH Intact Salicylates Acetaminophen Crossmatch Chest x-ray: report reviewed, image reviewed
[2019-05-09] MEDS: INSULIN REGULAR, HUMAN 100 UNITS/1 ML SUB-Q SCH ×4 (06:28→18:01)
[2019-05-09] MEDS: IPRATROPIUM/ALBUTEROL SULFATE 3 ML AMPUL.NEB IH SCH ×3 (09:13→20:35)
[2019-05-09] MEDS: FAMOTIDINE 20 MG TAB PO SCH (09:29)
[2019-05-09] MEDS: risperiDONE 1 MG TAB PO SCH (09:29)
[2019-05-09] MEDS: SERTRALINE 100 MG TAB PO SCH (09:29)
[2019-05-09] MEDS: SODIUM HYPOCHLORITE, DAKIN'S 1/2 STRENGTH (0.25%) 473 ML TOPICAL SOLN TP SCH ×2 (09:31→21:58)
[2019-05-09 11:28] LABS: Basophils # (Auto) 0.1 K/mm3 (0.0-0.1); Basophils % (Auto) 0.6 % (0.0-1.8); Eosinophils # (Auto) 0.4 K/mm3 (0.0-0.4); Eosinophils % (Auto) 3.7 % (0.0-4.3); Hematocrit 30.2 % (35.5-45.6); Hemoglobin 9.7 gm/dl (11.8-15.2); Lymphocytes # (Auto) 0.9 K/mm3 (1.2-5.4); Lymphocytes % (Auto) 7.4 % (13.4-35.0); Mean Corpuscular HGB Conc 32 % (32-34); Mean Corpuscular Volume 83 fl (84-94); Monocytes # (Auto) 0.9 K/mm3 (0.0-0.8); Monocytes % (Auto) 7.6 % (0.0-7.3); Platelet Count 359 K/mm3 (140-440); Red Blood Count 3.66 M/mm3 (3.65-5.03); Red Cell Distribution Width 20.1 % (13.2-15.2)
--- NOTE | 2019-05-09 13:03 | Progress Note ---
Assessment and Plan - Patient Problems (1) Pulmonary hypertension Current Visit: Yes Status: Acute (2) Dilated cardiomyopathy Current Visit: Yes Status: Acute (3) Encephalopathy Current Visit: Yes Status: Acute (4) ESRD (end stage renal disease) on dialysis Current Visit: Yes Status: Chronic (5) Acute HFrEF (heart failure with reduced ejection fraction) Current Visit: No Status: Acute (6) Altered mental status Current Visit: No Status: Acute Qualifiers: Altered mental status type: unspecified Qualified Code(s): R41.82 - Altered mental status, unspecified (7) Apneic episode Current Visit: No Status: Acute (8) Diabetes mellitus, insulin dependent (IDDM), uncontrolled Current Visit: No Status: Acute (9) Elevated lactic acid level Current Visit: No Status: Acute (10) Pneumothorax Current Visit: Yes Status: Suspected Subjective Principal diagnosis: Respiratory failure, acute on chronic systolic HF, ESRD Interval history: no change Objective Vital Signs - 12hr 05/09/19 05/09/19 05/09/19 03:28 08:45 09:12 Temperature 98.5 F 97.9 F Pulse Rate 98 H 97 H Pulse Rate [ Anterior Bilateral Throughout] Respiratory 19 18 Rate Respiratory Rate [Anterior Bilateral Throughout] Blood Pressure 143/69 144/65 O2 Sat by Pulse 100 99 100 Oximetry 05/09/19 05/09/19 09:13 12:31 Temperature 97.9 F Pulse Rate 88 Pulse Rate [ 96 H Anterior Bilateral Throughout] Respiratory 18 Rate Respiratory 16 Rate [Anterior Bilateral Throughout] Blood Pressure 141/65 O2 Sat by Pulse 87 Oximetry Constitutional: no acute distress, alert Eyes: non-icteric ENT: oropharynx moist Neck: supple Effort: normal Ascultation: Bilateral: diminished breath sounds, other (coarse BS bilaterally) Percussion: Bilateral: not dull Cardiovascular: regular rate and rhythm (no mrg) Gastrointestinal: normoactive bowel sounds, soft, non-tender, non-distended, other (ostomy in place, brown stool) Extremities: no cyanosis, no edema, pink and warm Neurologic: other (mild weakness LUE, o/w nonfocal) Psychiatric: other (unable to assess) CBC and BMP: 05/09/19 11:00 05/04/19 07:30 ABG, PT/INR, D-dimer: ABG POC ABG pH 7.510 (7.35-7.45) H 03/18/19 06:38 ABG pH 7.424 pH Units (7.350-7.450) 03/19/19 04:23 POC ABG pCO2 38.9 (35-45) 03/18/19 06:38 ABG pCO2 48.0 mm Hg 03/19/19 04:23 POC ABG pO2 164 (80-105) H 03/18/19 06:38 ABG pO2 78.3 mm Hg (80.0-90.0) L 03/19/19 04:23 POC ABG HCO3 31.0 (22-26 mml/L) 03/18/19 06:38 POC ABG Total CO2 32 (23-27mmol/L) 03/18/19 06:38 POC ABG O2 Sat 100 03/18/19 06:38 ABG O2 Saturation 97.0 % (95.0-99.0) 03/19/19 04:23 PT/INR, D-dimer PT 16.3 Sec. (12.2-14.9) H 03/01/19 09:39 INR 1.35 (0.87-1.13) H 03/01/19 09:39 D-Dimer 2987.82 ng/mlDDU (0-234) H 02/22/19 05:54 Abnormal lab findings: Abnormal Labs 02/21/19 02/21/19 02/21/19 18:30 18:30 18:30 WBC RBC 3.26 L Hgb 8.8 L Hct 29.0 L MCV MCH 27 L MCHC 30 L RDW 19.1 H Plt Count Lymph % (Auto) 6.1 L [place] % (Auto) Eos % (Auto) Baso % (Auto) Lymph # 0.4 L [place] # Eos # Baso # Seg Neutrophils % 86.2 H Seg Neuts % (Manual) Lymphocytes % (Manual) Eosinophils % (Manual) Seg Neutrophils # Lymphocytes # (Manual) Eosinophils # (Manual) PT INR D-Dimer POC ABG pH POC ABG pCO2 POC ABG pO2 ABG pO2 ABG HCO3 ABG Base Excess ABG Hemoglobin Oxyhemoglobin Sodium 133 L Potassium 3.3 L Chloride 93.1 L Carbon Dioxide 33 H BUN Creatinine Glucose 161 H POC Glucose Calcium Phosphorus Magnesium ALT Alkaline Phosphatase 136 H Total Creatine Kinase 37 L CK-MB (CK-2) Rel Index Troponin T 0.192 H* Albumin 2.4 L LDL Cholesterol Direct 36 L PTH Intact Salicylates Acetaminophen Crossmatch 02/21/19 02/21/19 02/21/19 18:42 20:04 20:04 WBC RBC Hgb Hct MCV MCH MCHC RDW Plt Count Lymph % (Auto) [place] % (Auto) Eos % (Auto) Baso % (Auto) Lymph # [place] # Eos # Baso # Seg Neutrophils % Seg Neuts % (Manual) Lymphocytes % (Manual) Eosinophils % (Manual) Seg Neutrophils # Lymphocytes # (Manual) Eosinophils # (Manual) PT INR D-Dimer POC ABG pH POC ABG pCO2 56.7 H POC ABG pO2 291 H ABG pO2 ABG HCO3 ABG Base Excess ABG Hemoglobin Oxyhemoglobin Sodium Potassium Chloride Carbon Dioxide BUN Creatinine Glucose POC Glucose Calcium Phosphorus Magnesium ALT Alkaline Phosphatase Total Creatine Kinase CK-MB (CK-2) Rel Index Troponin T Albumin LDL Cholesterol Direct PTH Intact Salicylates < 0.3 L Acetaminophen < 5.0 L Crossmatch 02/21/19 02/22/19 02/22/19 22:35 03:42 03:42 WBC RBC 3.20 L Hgb 8.8 L Hct 27.6 L MCV MCH MCHC RDW 18.9 H Plt Count Lymph % (Auto) 7.4 L [place] % (Auto) Eos % (Auto) Baso % (Auto) Lymph # 0.7 L [place] # Eos # Baso # Seg Neutrophils % 84.7 H Seg Neuts % (Manual) Lymphocytes % (Manual) Eosinophils % (Manual) Seg Neutrophils # Lymphocytes # (Manual) Eosinophils # (Manual) PT INR D-Dimer POC ABG pH POC ABG pCO2 POC ABG pO2 ABG pO2 ABG HCO3 ABG Base Excess ABG Hemoglobin Oxyhemoglobin Sodium 134 L Potassium 2.6 L* D Chloride Carbon Dioxide BUN Creatinine Glucose POC Glucose Calcium Phosphorus Magnesium ALT Alkaline Phosphatase Total Creatine Kinase CK-MB (CK-2) Rel Index 5.2 H Troponin T 0.202 H* Albumin LDL Cholesterol Direct PTH Intact Salicylates Acetaminophen Crossmatch 02/22/19 02/22/19 02/22/19 03:42 05:54 09:04 WBC RBC Hgb Hct MCV MCH MCHC RDW Plt Count Lymph % (Auto) [place] % (Auto) Eos % (Auto) Baso % (Auto) Lymph # [place] # Eos # Baso # Seg Neutrophils % Seg Neuts % (Manual) Lymphocytes % (Manual) Eosinophils % (Manual) Seg Neutrophils # Lymphocytes # (Manual) Eosinophils # (Manual) PT INR D-Dimer 2987.82 H POC ABG pH 7.451 H POC ABG pCO2 POC ABG pO2 ABG pO2 ABG HCO3 ABG Base Excess ABG Hemoglobin Oxyhemoglobin Sodium Potassium Chloride Carbon Dioxide BUN Creatinine Glucose POC Glucose Calcium Phosphorus Magnesium ALT Alkaline Phosphatase Total Creatine Kinase CK-MB (CK-2) Rel Index 5.7 H Troponin T 0.193 H* Albumin LDL Cholesterol Direct PTH Intact Salicylates Acetaminophen Crossmatch 02/22/19 02/22/19 02/23/19 10:36 23:56 00:52 WBC RBC Hgb Hct MCV MCH MCHC RDW Plt Count Lymph % (Auto) [place] % (Auto) Eos % (Auto) Baso % (Auto) Lymph # [place] # Eos # Baso # Seg Neutrophils % Seg Neuts % (Manual) Lymphocytes % (Manual) Eosinophils % (Manual) Seg Neutrophils # Lymphocytes # (Manual) Eosinophils # (Manual) PT INR D-Dimer POC ABG pH POC ABG pCO2 POC ABG pO2 ABG pO2 ABG HCO3 ABG Base Excess ABG Hemoglobin Oxyhemoglobin Sodium Potassium 3.1 L Chloride Carbon Dioxide BUN Creatinine Glucose POC Glucose 58 L 111 H Calcium Phosphorus Magnesium ALT Alkaline Phosphatase Total Creatine Kinase CK-MB (CK-2) Rel Index Troponin T Albumin LDL Cholesterol Direct PTH Intact Salicylates Acetaminophen Crossmatch 02/23/19 02/23/19 02/23/19 05:00 06:35 14:26 WBC RBC Hgb Hct MCV MCH MCHC RDW Plt Count Lymph % (Auto) [place] % (Auto) Eos % (Auto) Baso % (Auto) Lymph # [place] # Eos # Baso # Seg Neutrophils % Seg Neuts % (Manual) Lymphocytes % (Manual) Eosinophils % (Manual) Seg Neutrophils # Lymphocytes # (Manual) Eosinophils # (Manual) PT INR D-Dimer POC ABG pH POC ABG pCO2 POC ABG pO2 ABG pO2 ABG HCO3 ABG Base Excess ABG Hemoglobin Oxyhemoglobin Sodium 135 L Potassium 3.1 L Chloride Carbon Dioxide BUN 21 H Creatinine 2.0 H Glucose 57 L POC Glucose 64 L 62 L Calcium Phosphorus Magnesium ALT Alkaline Phosphatase Total Creatine Kinase CK-MB (CK-2) Rel Index Troponin T Albumin LDL Cholesterol Direct PTH Intact Salicylates Acetaminophen Crossmatch 02/24/19 02/24/19 02/24/19 02:11 04:12 04:55 WBC RBC 2.84 L Hgb 7.8 L Hct 24.5 L MCV MCH MCHC RDW 19.5 H Plt Count Lymph % (Auto) [place] % (Auto) Eos % (Auto) Baso % (Auto) Lymph # [place] # Eos # Baso # Seg Neutrophils % Seg Neuts % (Manual) Lymphocytes % (Manual) Eosinophils % (Manual) Seg Neutrophils # Lymphocytes # (Manual) Eosinophils # (Manual) PT INR D-Dimer POC ABG pH 7.511 H POC ABG pCO2 33.9 L POC ABG pO2 62 L ABG pO2 ABG HCO3 ABG Base Excess ABG Hemoglobin Oxyhemoglobin Sodium Potassium Chloride Carbon Dioxide BUN Creatinine Glucose POC Glucose 69 L Calcium Phosphorus Magnesium ALT Alkaline Phosphatase Total Creatine Kinase CK-MB (CK-2) Rel Index Troponin T Albumin LDL Cholesterol Direct PTH Intact Salicylates Acetaminophen Crossmatch 02/24/19 02/24/19 02/25/19 04:55 05:41 04:45 WBC RBC Hgb Hct MCV MCH MCHC RDW Plt Count Lymph % (Auto) [place] % (Auto) Eos % (Auto) Baso % (Auto) Lymph # [place] # Eos # Baso # Seg Neutrophils % Seg Neuts % (Manual) Lymphocytes % (Manual) Eosinophils % (Manual) Seg Neutrophils # Lymphocytes # (Manual) Eosinophils # (Manual) PT INR D-Dimer POC ABG pH 7.466 H POC ABG pCO2 POC ABG pO2 75 L ABG pO2 ABG HCO3 ABG Base Excess ABG Hemoglobin Oxyhemoglobin Sodium Potassium Chloride Carbon Dioxide BUN Creatinine 1.8 H Glucose 73 L POC Glucose 127 H Calcium Phosphorus Magnesium ALT Alkaline Phosphatase Total Creatine Kinase CK-MB (CK-2) Rel Index Troponin T Albumin LDL Cholesterol Direct PTH Intact Salicylates Acetaminophen Crossmatch 02/25/19 02/25/19 02/26/19 16:34 21:33 03:45 WBC RBC 2.96 L Hgb 8.0 L Hct 25.8 L MCV MCH 27 L MCHC 31 L RDW 20.0 H Plt Count Lymph % (Auto) [place] % (Auto) Eos % (Auto) Baso % (Auto) Lymph # [place] # Eos # Baso # Seg Neutrophils % Seg Neuts % (Manual) Lymphocytes % (Manual) Eosinophils % (Manual) Seg Neutrophils # Lymphocytes # (Manual) Eosinophils # (Manual) PT INR D-Dimer POC ABG pH POC ABG pCO2 POC ABG pO2 ABG pO2 ABG HCO3 ABG Base Excess ABG Hemoglobin Oxyhemoglobin Sodium Potassium Chloride Carbon Dioxide BUN Creatinine Glucose POC Glucose 141 H 106 H Calcium Phosphorus Magnesium ALT Alkaline Phosphatase Total Creatine Kinase CK-MB (CK-2) Rel Index Troponin T Albumin LDL Cholesterol Direct PTH Intact Salicylates Acetaminophen Crossmatch 02/26/19 02/26/19 02/26/19 03:45 04:13 07:53 WBC RBC Hgb Hct MCV MCH MCHC RDW Plt Count Lymph % (Auto) [place] % (Auto) Eos % (Auto) Baso % (Auto) Lymph # [place] # Eos # Baso # Seg Neutrophils % Seg Neuts % (Manual) Lymphocytes % (Manual) Eosinophils % (Manual) Seg Neutrophils # Lymphocytes # (Manual) Eosinophils # (Manual) PT INR D-Dimer POC ABG pH 7.470 H POC ABG pCO2 POC ABG pO2 ABG pO2 ABG HCO3 ABG Base Excess ABG Hemoglobin Oxyhemoglobin Sodium Potassium Chloride Carbon Dioxide BUN Creatinine 1.8 H Glucose POC Glucose 110 H Calcium Phosphorus Magnesium ALT Alkaline Phosphatase Total Creatine Kinase CK-MB (CK-2) Rel Index Troponin T Albumin LDL Cholesterol Direct PTH Intact Salicylates Acetaminophen Crossmatch 02/26/19 02/26/19 02/27/19 11:56 17:43 00:12 WBC RBC Hgb Hct MCV MCH MCHC RDW Plt Count Lymph % (Auto) [place] % (Auto) Eos % (Auto) Baso % (Auto) Lymph # [place] # Eos # Baso # Seg Neutrophils % Seg Neuts % (Manual) Lymphocytes % (Manual) Eosinophils % (Manual) Seg Neutrophils # Lymphocytes # (Manual) Eosinophils # (Manual) PT INR D-Dimer POC ABG pH POC ABG pCO2 POC ABG pO2 ABG pO2 ABG HCO3 ABG Base Excess ABG Hemoglobin Oxyhemoglobin Sodium Potassium Chloride Carbon Dioxide BUN Creatinine Glucose POC Glucose 112 H 127 H 127 H Calcium Phosphorus Magnesium ALT Alkaline Phosphatase Total Creatine Kinase CK-MB (CK-2) Rel Index Troponin T Albumin LDL Cholesterol Direct PTH Intact Salicylates Acetaminophen Crossmatch 02/27/19 02/27/19 02/27/19 04:35 13:15 18:02 WBC RBC Hgb Hct MCV MCH MCHC RDW Plt Count Lymph % (Auto) [place] % (Auto) Eos % (Auto) Baso % (Auto) Lymph # [place] # Eos # Baso # Seg Neutrophils % Seg Neuts % (Manual) Lymphocytes % (Manual) Eosinophils % (Manual) Seg Neutrophils # Lymphocytes # (Manual) Eosinophils # (Manual) PT INR D-Dimer POC ABG pH 7.483 H POC ABG pCO2 POC ABG pO2 61 L ABG pO2 ABG HCO3 ABG Base Excess ABG Hemoglobin Oxyhemoglobin Sodium Potassium Chloride Carbon Dioxide BUN Creatinine Glucose POC Glucose 143 H 106 H Calcium Phosphorus Magnesium ALT Alkaline Phosphatase Total Creatine Kinase CK-MB (CK-2) Rel Index Troponin T Albumin LDL Cholesterol Direct PTH Intact Salicylates Acetaminophen Crossmatch 02/28/19 02/28/19 02/28/19 05:50 11:59 17:52 WBC RBC Hgb Hct MCV MCH MCHC RDW Plt Count Lymph % (Auto) [place] % (Auto) Eos % (Auto) Baso % (Auto) Lymph # [place] # Eos # Baso # Seg Neutrophils % Seg Neuts % (Manual) Lymphocytes % (Manual) Eosinophils % (Manual) Seg Neutrophils # Lymphocytes # (Manual) Eosinophils # (Manual) PT INR D-Dimer POC ABG pH POC ABG pCO2 POC ABG pO2 ABG pO2 ABG HCO3 ABG Base Excess ABG Hemoglobin Oxyhemoglobin Sodium Potassium Chloride Carbon Dioxide BUN Creatinine Glucose POC Glucose 134 H 128 H 142 H Calcium Phosphorus Magnesium ALT Alkaline Phosphatase Total Creatine Kinase CK-MB (CK-2) Rel Index Troponin T Albumin LDL Cholesterol Direct PTH Intact Salicylates Acetaminophen Crossmatch 02/28/19 03/01/19 03/01/19 23:13 05:40 09:39 WBC RBC Hgb Hct MCV MCH MCHC RDW Plt Count Lymph % (Auto) [place] % (Auto) Eos % (Auto) Baso % (Auto) Lymph # [place] # Eos # Baso # Seg Neutrophils % Seg Neuts % (Manual) Lymphocytes % (Manual) Eosinophils % (Manual) Seg Neutrophils # Lymphocytes # (Manual) Eosinophils # (Manual) PT 16.3 H INR 1.35 H D-Dimer POC ABG pH POC ABG pCO2 POC ABG pO2 ABG pO2 ABG HCO3 ABG Base Excess ABG Hemoglobin Oxyhemoglobin Sodium Potassium Chloride Carbon Dioxide BUN Creatinine Glucose POC Glucose 112 H 111 H Calcium Phosphorus Magnesium ALT Alkaline Phosphatase Total Creatine Kinase CK-MB (CK-2) Rel Index Troponin T Albumin LDL Cholesterol Direct PTH Intact Salicylates Acetaminophen Crossmatch 03/01/19 03/01/19 03/01/19 11:56 13:54 17:59 WBC RBC Hgb Hct MCV MCH MCHC RDW Plt Count Lymph % (Auto) [place] % (Auto) Eos % (Auto) Baso % (Auto) Lymph # [place] # Eos # Baso # Seg Neutrophils % Seg Neuts % (Manual) Lymphocytes % (Manual) Eosinophils % (Manual) Seg Neutrophils # Lymphocytes # (Manual) Eosinophils # (Manual) PT INR D-Dimer POC ABG pH POC ABG pCO2 POC ABG pO2 ABG pO2 ABG HCO3 ABG Base Excess ABG Hemoglobin Oxyhemoglobin Sodium Potassium Chloride Carbon Dioxide BUN 33 H Creatinine 2.8 H D Glucose 176 H POC Glucose 199 H 147 H Calcium Phosphorus Magnesium ALT Alkaline Phosphatase Total Creatine Kinase CK-MB (CK-2) Rel Index Troponin T Albumin LDL Cholesterol Direct PTH Intact Salicylates Acetaminophen Crossmatch 03/02/19 03/02/19 03/02/19 05:15 05:15 05:15 WBC RBC 2.73 L Hgb 7.4 L Hct 23.0 L MCV MCH 27 L MCHC RDW 19.9 H Plt Count Lymph % (Auto) [place] % (Auto) 7.9 H Eos % (Auto) 7.6 H Baso % (Auto) Lymph # 1.0 L [place] # Eos # 0.5 H Baso # Seg Neutrophils % Seg Neuts % (Manual) Lymphocytes % (Manual) Eosinophils % (Manual) Seg Neutrophils # Lymphocytes # (Manual) Eosinophils # (Manual) PT INR D-Dimer POC ABG pH POC ABG pCO2 POC ABG pO2 ABG pO2 ABG HCO3 ABG Base Excess ABG Hemoglobin Oxyhemoglobin Sodium Potassium Chloride Carbon Dioxide BUN 43 H Creatinine 3.2 H Glucose POC Glucose Calcium Phosphorus 2.30 L Magnesium ALT Alkaline Phosphatase Total Creatine Kinase CK-MB (CK-2) Rel Index Troponin T Albumin LDL Cholesterol Direct PTH Intact 267.6 H Salicylates Acetaminophen Crossmatch 03/02/19 03/02/19 03/03/19 12:32 18:20 13:30 WBC RBC Hgb Hct MCV MCH MCHC RDW Plt Count Lymph % (Auto) [place] % (Auto) Eos % (Auto) Baso % (Auto) Lymph # [place] # Eos # Baso # Seg Neutrophils % Seg Neuts % (Manual) Lymphocytes % (Manual) Eosinophils % (Manual) Seg Neutrophils # Lymphocytes # (Manual) Eosinophils # (Manual) PT INR D-Dimer POC ABG pH POC ABG pCO2 POC ABG pO2 ABG pO2 ABG HCO3 ABG Base Excess ABG Hemoglobin Oxyhemoglobin Sodium Potassium Chloride 97.3 L Carbon Dioxide BUN 26 H Creatinine 2.2 H Glucose 73 L POC Glucose 111 H 156 H Calcium Phosphorus Magnesium ALT Alkaline Phosphatase Total Creatine Kinase CK-MB (CK-2) Rel Index Troponin T Albumin LDL Cholesterol Direct PTH Intact Salicylates Acetaminophen Crossmatch 03/04/19 03/04/19 03/04/19 00:02 05:37 05:40 WBC RBC 2.63 L Hgb 7.2 L Hct 22.2 L MCV MCH MCHC RDW 20.2 H Plt Count Lymph % (Auto) 10.5 L [place] % (Auto) Eos % (Auto) 4.6 H Baso % (Auto) Lymph # 0.7 L [place] # Eos # Baso # Seg Neutrophils % 76.9 H Seg Neuts % (Manual) Lymphocytes % (Manual) Eosinophils % (Manual) Seg Neutrophils # Lymphocytes # (Manual) Eosinophils # (Manual) PT INR D-Dimer POC ABG pH POC ABG pCO2 POC ABG pO2 ABG pO2 ABG HCO3 ABG Base Excess ABG Hemoglobin Oxyhemoglobin Sodium Potassium Chloride Carbon Dioxide BUN Creatinine Glucose POC Glucose 136 H 123 H Calcium Phosphorus Magnesium ALT Alkaline Phosphatase Total Creatine Kinase CK-MB (CK-2) Rel Index Troponin T Albumin LDL Cholesterol Direct PTH Intact Salicylates Acetaminophen Crossmatch 03/04/19 03/04/19 03/04/19 05:40 11:39 23:20 WBC RBC Hgb Hct MCV MCH MCHC RDW Plt Count Lymph % (Auto) [place] % (Auto) Eos % (Auto) Baso % (Auto) Lymph # [place] # Eos # Baso # Seg Neutrophils % Seg Neuts % (Manual) Lymphocytes % (Manual) Eosinophils % (Manual) Seg Neutrophils # Lymphocytes # (Manual) Eosinophils # (Manual) PT INR D-Dimer POC ABG pH POC ABG pCO2 POC ABG pO2 ABG pO2 ABG HCO3 ABG Base Excess ABG Hemoglobin Oxyhemoglobin Sodium Potassium Chloride Carbon Dioxide BUN 34 H Creatinine 2.7 H Glucose 114 H POC Glucose 175 H 151 H Calcium Phosphorus Magnesium ALT Alkaline Phosphatase Total Creatine Kinase CK-MB (CK-2) Rel Index Troponin T Albumin LDL Cholesterol Direct PTH Intact Salicylates Acetaminophen Crossmatch 03/05/19 03/05/19 03/05/19 05:37 12:08 17:11 WBC RBC Hgb Hct MCV MCH MCHC RDW Plt Count Lymph % (Auto) [place] % (Auto) Eos % (Auto) Baso % (Auto) Lymph # [place] # Eos # Baso # Seg Neutrophils % Seg Neuts % (Manual) Lymphocytes % (Manual) Eosinophils % (Manual) Seg Neutrophils # Lymphocytes # (Manual) Eosinophils # (Manual) PT INR D-Dimer POC ABG pH POC ABG pCO2 POC ABG pO2 ABG pO2 ABG HCO3 ABG Base Excess ABG Hemoglobin Oxyhemoglobin Sodium Potassium Chloride Carbon Dioxide BUN Creatinine Glucose POC Glucose 134 H 135 H 135 H Calcium Phosphorus Magnesium ALT Alkaline Phosphatase Total Creatine Kinase CK-MB (CK-2) Rel Index Troponin T Albumin LDL Cholesterol Direct PTH Intact Salicylates Acetaminophen Crossmatch 03/06/19 03/06/19 03/06/19 00:16 13:05 18:09 WBC RBC Hgb Hct MCV MCH MCHC RDW Plt Count Lymph % (Auto) [place] % (Auto) Eos % (Auto) Baso % (Auto) Lymph # [place] # Eos # Baso # Seg Neutrophils % Seg Neuts % (Manual) Lymphocytes % (Manual) Eosinophils % (Manual) Seg Neutrophils # Lymphocytes # (Manual) Eosinophils # (Manual) PT INR D-Dimer POC ABG pH POC ABG pCO2 POC ABG pO2 ABG pO2 ABG HCO3 ABG Base Excess ABG Hemoglobin Oxyhemoglobin Sodium Potassium Chloride Carbon Dioxide BUN Creatinine Glucose POC Glucose 117 H 113 H 131 H Calcium Phosphorus Magnesium ALT Alkaline Phosphatase Total Creatine Kinase CK-MB (CK-2) Rel Index Troponin T Albumin LDL Cholesterol Direct PTH Intact Salicylates Acetaminophen Crossmatch 03/07/19 03/08/19 03/08/19 05:25 05:33 16:00 WBC RBC 2.44 L Hgb 6.6 L Hct 20.8 L MCV MCH 27 L MCHC RDW 19.2 H Plt Count Lymph % (Auto) [place] % (Auto) Eos % (Auto) 8.6 H Baso % (Auto) Lymph # 0.8 L [place] # Eos # 0.5 H Baso # Seg Neutrophils % 70.7 H Seg Neuts % (Manual) Lymphocytes % (Manual) Eosinophils % (Manual) Seg Neutrophils # Lymphocytes # (Manual) Eosinophils # (Manual) PT INR D-Dimer POC ABG pH POC ABG pCO2 POC ABG pO2 ABG pO2 ABG HCO3 ABG Base Excess ABG Hemoglobin Oxyhemoglobin Sodium Potassium Chloride Carbon Dioxide BUN Creatinine Glucose POC Glucose 106 H 108 H Calcium Phosphorus Magnesium ALT Alkaline Phosphatase Total Creatine Kinase CK-MB (CK-2) Rel Index Troponin T Albumin LDL Cholesterol Direct PTH Intact Salicylates Acetaminophen Crossmatch 03/08/19 03/08/19 03/08/19 16:00 18:38 Unknown WBC RBC Hgb Hct MCV MCH MCHC RDW Plt Count Lymph % (Auto) [place] % (Auto) Eos % (Auto) Baso % (Auto) Lymph # [place] # Eos # Baso # Seg Neutrophils % Seg Neuts % (Manual) Lymphocytes % (Manual) Eosinophils % (Manual) Seg Neutrophils # Lymphocytes # (Manual) Eosinophils # (Manual) PT INR D-Dimer POC ABG pH POC ABG pCO2 POC ABG pO2 ABG pO2 ABG HCO3 ABG Base Excess ABG Hemoglobin Oxyhemoglobin Sodium Potassium 5.4 H D Chloride Carbon Dioxide BUN 47 H Creatinine 2.6 H Glucose POC Glucose 123 H Calcium Phosphorus Magnesium ALT < 5 L Alkaline Phosphatase Total Creatine Kinase CK-MB (CK-2) Rel Index Troponin T Albumin 2.2 L LDL Cholesterol Direct PTH Intact Salicylates Acetaminophen Crossmatch See Detail 03/09/19 03/09/19 03/09/19 10:48 12:28 13:53 WBC RBC 2.85 L Hgb 7.7 L Hct 24.2 L MCV MCH 27 L MCHC RDW 18.7 H Plt Count Lymph % (Auto) [place] % (Auto) Eos % (Auto) Baso % (Auto) Lymph # [place] # Eos # Baso # Seg Neutrophils % Seg Neuts % (Manual) Lymphocytes % (Manual) Eosinophils % (Manual) Seg Neutrophils # Lymphocytes # (Manual) Eosinophils # (Manual) PT INR D-Dimer POC ABG pH POC ABG pCO2 POC ABG pO2 ABG pO2 ABG HCO3 30.5 H ABG Base Excess 5.6 H ABG Hemoglobin 8.1 L Oxyhemoglobin 93.8 L Sodium Potassium Chloride Carbon Dioxide BUN Creatinine Glucose POC Glucose 114 H Calcium Phosphorus Magnesium ALT Alkaline Phosphatase Total Creatine Kinase CK-MB (CK-2) Rel Index Troponin T Albumin LDL Cholesterol Direct PTH Intact Salicylates Acetaminophen Crossmatch 03/09/19 03/09/19 03/10/19 17:58 23:53 12:01 WBC RBC Hgb Hct MCV MCH MCHC RDW Plt Count Lymph % (Auto) [place] % (Auto) Eos % (Auto) Baso % (Auto) Lymph # [place] # Eos # Baso # Seg Neutrophils % Seg Neuts % (Manual) Lymphocytes % (Manual) Eosinophils % (Manual) Seg Neutrophils # Lymphocytes # (Manual) Eosinophils # (Manual) PT INR D-Dimer POC ABG pH POC ABG pCO2 POC ABG pO2 ABG pO2 ABG HCO3 ABG Base Excess ABG Hemoglobin Oxyhemoglobin Sodium Potassium Chloride Carbon Dioxide BUN Creatinine Glucose POC Glucose 108 H 128 H 144 H Calcium Phosphorus Magnesium ALT Alkaline Phosphatase Total Creatine Kinase CK-MB (CK-2) Rel Index Troponin T Albumin LDL Cholesterol Direct PTH Intact Salicylates Acetaminophen Crossmatch 03/10/19 03/11/19 03/11/19 16:50 00:24 05:02 WBC RBC Hgb Hct MCV MCH MCHC RDW Plt Count Lymph % (Auto) [place] % (Auto) Eos % (Auto) Baso % (Auto) Lymph # [place] # Eos # Baso # Seg Neutrophils % Seg Neuts % (Manual) Lymphocytes % (Manual) Eosinophils % (Manual) Seg Neutrophils # Lymphocytes # (Manual) Eosinophils # (Manual) PT INR D-Dimer POC ABG pH POC ABG pCO2 POC ABG pO2 ABG pO2 ABG HCO3 ABG Base Excess ABG Hemoglobin Oxyhemoglobin Sodium Potassium Chloride Carbon Dioxide BUN Creatinine Glucose POC Glucose 147 H 123 H 120 H Calcium Phosphorus Magnesium ALT Alkaline Phosphatase Total Creatine Kinase CK-MB (CK-2) Rel Index Troponin T Albumin LDL Cholesterol Direct PTH Intact Salicylates Acetaminophen Crossmatch 03/11/19 03/11/19 03/11/19 11:56 12:20 18:37 WBC RBC Hgb Hct MCV MCH MCHC RDW Plt Count Lymph % (Auto) [place] % (Auto) Eos % (Auto) Baso % (Auto) Lymph # [place] # Eos # Baso # Seg Neutrophils % Seg Neuts % (Manual) Lymphocytes % (Manual) Eosinophils % (Manual) Seg Neutrophils # Lymphocytes # (Manual) Eosinophils # (Manual) PT INR D-Dimer POC ABG pH POC ABG pCO2 POC ABG pO2 ABG pO2 ABG HCO3 ABG Base Excess ABG Hemoglobin Oxyhemoglobin Sodium Potassium 5.2 H Chloride Carbon Dioxide BUN Creatinine Glucose POC Glucose 123 H 125 H Calcium Phosphorus Magnesium ALT Alkaline Phosphatase Total Creatine Kinase CK-MB (CK-2) Rel Index Troponin T Albumin LDL Cholesterol Direct PTH Intact Salicylates Acetaminophen Crossmatch 03/11/19 03/12/19 03/12/19 22:52 12:04 18:25 WBC RBC Hgb Hct MCV MCH MCHC RDW Plt Count Lymph % (Auto) [place] % (Auto) Eos % (Auto) Baso % (Auto) Lymph # [place] # Eos # Baso # Seg Neutrophils % Seg Neuts % (Manual) Lymphocytes % (Manual) Eosinophils % (Manual) Seg Neutrophils # Lymphocytes # (Manual) Eosinophils # (Manual) PT INR D-Dimer POC ABG pH POC ABG pCO2 POC ABG pO2 ABG pO2 ABG HCO3 ABG Base Excess ABG Hemoglobin Oxyhemoglobin Sodium Potassium Chloride Carbon Dioxide BUN Creatinine Glucose POC Glucose 110 H 106 H 118 H Calcium Phosphorus Magnesium ALT Alkaline Phosphatase Total Creatine Kinase CK-MB (CK-2) Rel Index Troponin T Albumin LDL Cholesterol Direct PTH Intact Salicylates Acetaminophen Crossmatch 03/12/19 03/13/19 03/13/19 23:36 04:38 04:38 WBC RBC 2.95 L Hgb 7.9 L Hct 24.9 L MCV MCH 27 L MCHC RDW 19.9 H Plt Count Lymph % (Auto) 11.1 L [place] % (Auto) 8.1 H Eos % (Auto) 4.4 H Baso % (Auto) Lymph # 0.9 L [place] # Eos # Baso # Seg Neutrophils % 75.4 H Seg Neuts % (Manual) Lymphocytes % (Manual) Eosinophils % (Manual) Seg Neutrophils # Lymphocytes # (Manual) Eosinophils # (Manual) PT INR D-Dimer POC ABG pH POC ABG pCO2 POC ABG pO2 ABG pO2 ABG HCO3 ABG Base Excess ABG Hemoglobin Oxyhemoglobin Sodium 136 L Potassium 5.1 H Chloride 93.8 L Carbon Dioxide BUN 48 H Creatinine 2.7 H Glucose 102 H POC Glucose 115 H Calcium Phosphorus Magnesium ALT < 5 L Alkaline Phosphatase 143 H Total Creatine Kinase CK-MB (CK-2) Rel Index Troponin T Albumin 2.5 L LDL Cholesterol Direct PTH Intact Salicylates Acetaminophen Crossmatch 03/13/19 03/13/19 03/13/19 05:33 13:37 18:03 WBC RBC Hgb Hct MCV MCH MCHC RDW Plt Count Lymph % (Auto) [place] % (Auto) Eos % (Auto) Baso % (Auto) Lymph # [place] # Eos # Baso # Seg Neutrophils % Seg Neuts % (Manual) Lymphocytes % (Manual) Eosinophils % (Manual) Seg Neutrophils # Lymphocytes # (Manual) Eosinophils # (Manual) PT INR D-Dimer POC ABG pH POC ABG pCO2 POC ABG pO2 ABG pO2 ABG HCO3 ABG Base Excess ABG Hemoglobin Oxyhemoglobin Sodium Potassium Chloride Carbon Dioxide BUN Creatinine Glucose POC Glucose 140 H 150 H 158 H Calcium Phosphorus Magnesium ALT Alkaline Phosphatase Total Creatine Kinase CK-MB (CK-2) Rel Index Troponin T Albumin LDL Cholesterol Direct PTH Intact Salicylates Acetaminophen Crossmatch 03/13/19 03/14/19 03/14/19 23:32 05:24 12:20 WBC RBC Hgb Hct MCV MCH MCHC RDW Plt Count Lymph % (Auto) [place] % (Auto) Eos % (Auto) Baso % (Auto) Lymph # [place] # Eos # Baso # Seg Neutrophils % Seg Neuts % (Manual) Lymphocytes % (Manual) Eosinophils % (Manual) Seg Neutrophils # Lymphocytes # (Manual) Eosinophils # (Manual) PT INR D-Dimer POC ABG pH POC ABG pCO2 POC ABG pO2 ABG pO2 ABG HCO3 ABG Base Excess ABG Hemoglobin Oxyhemoglobin Sodium Potassium Chloride Carbon Dioxide BUN Creatinine Glucose POC Glucose 162 H 146 H 127 H Calcium Phosphorus Magnesium ALT Alkaline Phosphatase Total Creatine Kinase CK-MB (CK-2) Rel Index Troponin T Albumin LDL Cholesterol Direct PTH Intact Salicylates Acetaminophen Crossmatch 03/14/19 03/14/19 03/15/19 18:05 23:57 04:38 WBC 12.8 H RBC 3.11 L Hgb 8.1 L Hct 26.5 L MCV MCH 26 L MCHC 31 L RDW 19.7 H Plt Count Lymph % (Auto) 4.4 L [place] % (Auto) 7.4 H Eos % (Auto) Baso % (Auto) Lymph # 0.6 L [place] # 0.9 H Eos # Baso # Seg Neutrophils % 87.3 H Seg Neuts % (Manual) Lymphocytes % (Manual) Eosinophils % (Manual) Seg Neutrophils # 11.2 H Lymphocytes # (Manual) Eosinophils # (Manual) PT INR D-Dimer POC ABG pH POC ABG pCO2 POC ABG pO2 ABG pO2 ABG HCO3 ABG Base Excess ABG Hemoglobin Oxyhemoglobin Sodium Potassium Chloride Carbon Dioxide BUN Creatinine Glucose POC Glucose 142 H 155 H Calcium Phosphorus Magnesium ALT Alkaline Phosphatase Total Creatine Kinase CK-MB (CK-2) Rel Index Troponin T Albumin LDL Cholesterol Direct PTH Intact Salicylates Acetaminophen Crossmatch 03/15/19 03/15/19 03/15/19 04:38 05:31 11:32 WBC RBC Hgb Hct MCV MCH MCHC RDW Plt Count Lymph % (Auto) [place] % (Auto) Eos % (Auto) Baso % (Auto) Lymph # [place] # Eos # Baso # Seg Neutrophils % Seg Neuts % (Manual) Lymphocytes % (Manual) Eosinophils % (Manual) Seg Neutrophils # Lymphocytes # (Manual) Eosinophils # (Manual) PT INR D-Dimer POC ABG pH POC ABG pCO2 POC ABG pO2 ABG pO2 ABG HCO3 ABG Base Excess ABG Hemoglobin Oxyhemoglobin Sodium 135 L Potassium Chloride 91.9 L Carbon Dioxide BUN 54 H Creatinine 2.8 H Glucose 128 H POC Glucose 160 H 109 H Calcium 11.1 H Phosphorus Magnesium ALT Alkaline Phosphatase 161 H Total Creatine Kinase CK-MB (CK-2) Rel Index Troponin T Albumin 2.3 L LDL Cholesterol Direct PTH Intact Salicylates Acetaminophen Crossmatch 03/15/19 03/15/19 03/16/19 18:15 23:41 05:40 WBC RBC Hgb Hct MCV MCH MCHC RDW Plt Count Lymph % (Auto) [place] % (Auto) Eos % (Auto) Baso % (Auto) Lymph # [place] # Eos # Baso # Seg Neutrophils % Seg Neuts % (Manual) Lymphocytes % (Manual) Eosinophils % (Manual) Seg Neutrophils # Lymphocytes # (Manual) Eosinophils # (Manual) PT INR D-Dimer POC ABG pH POC ABG pCO2 POC ABG pO2 ABG pO2 ABG HCO3 ABG Base Excess ABG Hemoglobin Oxyhemoglobin Sodium Potassium Chloride Carbon Dioxide BUN Creatinine Glucose POC Glucose 151 H 110 H 163 H Calcium Phosphorus Magnesium ALT Alkaline Phosphatase Total Creatine Kinase CK-MB (CK-2) Rel Index Troponin T Albumin LDL Cholesterol Direct PTH Intact Salicylates Acetaminophen Crossmatch 03/16/19 03/16/19 03/16/19 11:55 17:04 23:58 WBC RBC Hgb Hct MCV MCH MCHC RDW Plt Count Lymph % (Auto) [place] % (Auto) Eos % (Auto) Baso % (Auto) Lymph # [place] # Eos # Baso # Seg Neutrophils % Seg Neuts % (Manual) Lymphocytes % (Manual) Eosinophils % (Manual) Seg Neutrophils # Lymphocytes # (Manual) Eosinophils # (Manual) PT INR D-Dimer POC ABG pH POC ABG pCO2 POC ABG pO2 ABG pO2 ABG HCO3 ABG Base Excess ABG Hemoglobin Oxyhemoglobin Sodium Potassium Chloride Carbon Dioxide BUN Creatinine Glucose POC Glucose 114 H 147 H 192 H Calcium Phosphorus Magnesium ALT Alkaline Phosphatase Total Creatine Kinase CK-MB (CK-2) Rel Index Troponin T Albumin LDL Cholesterol Direct PTH Intact Salicylates Acetaminophen Crossmatch 03/17/19 03/17/19 03/17/19 05:53 11:17 17:01 WBC RBC Hgb Hct MCV MCH MCHC RDW Plt Count Lymph % (Auto) [place] % (Auto) Eos % (Auto) Baso % (Auto) Lymph # [place] # Eos # Baso # Seg Neutrophils % Seg Neuts % (Manual) Lymphocytes % (Manual) Eosinophils % (Manual) Seg Neutrophils # Lymphocytes # (Manual) Eosinophils # (Manual) PT INR D-Dimer POC ABG pH POC ABG pCO2 POC ABG pO2 ABG pO2 ABG HCO3 ABG Base Excess ABG Hemoglobin Oxyhemoglobin Sodium Potassium Chloride Carbon Dioxide BUN Creatinine Glucose POC Glucose 151 H 161 H 152 H Calcium Phosphorus Magnesium ALT Alkaline Phosphatase Total Creatine Kinase CK-MB (CK-2) Rel Index Troponin T Albumin LDL Cholesterol Direct PTH Intact Salicylates Acetaminophen Crossmatch 03/17/19 03/18/19 03/18/19 21:47 04:15 04:44 WBC RBC Hgb Hct MCV MCH MCHC RDW Plt Count Lymph % (Auto) [place] % (Auto) Eos % (Auto) Baso % (Auto) Lymph # [place] # Eos # Baso # Seg Neutrophils % Seg Neuts % (Manual) Lymphocytes % (Manual) Eosinophils % (Manual) Seg Neutrophils # Lymphocytes # (Manual) Eosinophils # (Manual) PT INR D-Dimer POC ABG pH POC ABG pCO2 POC ABG pO2 ABG pO2 102.8 H ABG HCO3 28.3 H ABG Base Excess ABG Hemoglobin 10.4 L Oxyhemoglobin 94.5 L Sodium Potassium Chloride Carbon Dioxide BUN Creatinine Glucose POC Glucose 170 H 150 H Calcium Phosphorus Magnesium ALT Alkaline Phosphatase Total Creatine Kinase CK-MB (CK-2) Rel Index Troponin T Albumin LDL Cholesterol Direct PTH Intact Salicylates Acetaminophen Crossmatch 03/18/19 03/18/19 03/18/19 06:38 12:12 17:47 WBC RBC Hgb Hct MCV MCH MCHC RDW Plt Count Lymph % (Auto) [place] % (Auto) Eos % (Auto) Baso % (Auto) Lymph # [place] # Eos # Baso # Seg Neutrophils % Seg Neuts % (Manual) Lymphocytes % (Manual) Eosinophils % (Manual) Seg Neutrophils # Lymphocytes # (Manual) Eosinophils # (Manual) PT INR D-Dimer POC ABG pH 7.510 H POC ABG pCO2 POC ABG pO2 164 H ABG pO2 ABG HCO3 ABG Base Excess ABG Hemoglobin Oxyhemoglobin Sodium Potassium Chloride Carbon Dioxide BUN Creatinine Glucose POC Glucose 145 H 149 H Calcium Phosphorus Magnesium ALT Alkaline Phosphatase Total Creatine Kinase CK-MB (CK-2) Rel Index Troponin T Albumin LDL Cholesterol Direct PTH Intact Salicylates Acetaminophen Crossmatch 03/18/19 03/19/19 03/19/19 23:25 01:11 04:23 WBC 15.6 H RBC 2.51 L Hgb 6.5 L Hct 21.6 L MCV MCH 26 L MCHC 30 L RDW 19.8 H Plt Count Lymph % (Auto) 6.0 L [place] % (Auto) Eos % (Auto) Baso % (Auto) Lymph # 0.9 L [place] # 1.0 H Eos # Baso # Seg Neutrophils % 85.5 H Seg Neuts % (Manual) Lymphocytes % (Manual) Eosinophils % (Manual) Seg Neutrophils # 13.4 H Lymphocytes # (Manual) Eosinophils # (Manual) PT INR D-Dimer POC ABG pH POC ABG pCO2 POC ABG pO2 ABG pO2 78.3 L ABG HCO3 30.7 H ABG Base Excess 5.8 H ABG Hemoglobin 5.8 L Oxyhemoglobin 94.6 L Sodium Potassium Chloride Carbon Dioxide BUN Creatinine Glucose POC Glucose 190 H Calcium Phosphorus Magnesium ALT Alkaline Phosphatase Total Creatine Kinase CK-MB (CK-2) Rel Index Troponin T Albumin LDL Cholesterol Direct PTH Intact Salicylates Acetaminophen Crossmatch 03/19/19 03/19/19 03/19/19 05:22 05:35 08:54 WBC RBC Hgb Hct MCV MCH MCHC RDW Plt Count Lymph % (Auto) [place] % (Auto) Eos % (Auto) Baso % (Auto) Lymph # [place] # Eos # Baso # Seg Neutrophils % Seg Neuts % (Manual) Lymphocytes % (Manual) Eosinophils % (Manual) Seg Neutrophils # Lymphocytes # (Manual) Eosinophils # (Manual) PT INR D-Dimer POC ABG pH POC ABG pCO2 POC ABG pO2 ABG pO2 ABG HCO3 ABG Base Excess ABG Hemoglobin Oxyhemoglobin Sodium Potassium Chloride Carbon Dioxide BUN Creatinine Glucose POC Glucose 167 H Calcium Phosphorus Magnesium ALT Alkaline Phosphatase Total Creatine Kinase CK-MB (CK-2) Rel Index Troponin T Albumin LDL Cholesterol Direct PTH Intact Salicylates Acetaminophen Crossmatch See Detail See Detail 03/19/19 03/19/19 03/19/19 12:36 17:02 23:25 WBC RBC Hgb Hct MCV MCH MCHC RDW Plt Count Lymph % (Auto) [place] % (Auto) Eos % (Auto) Baso % (Auto) Lymph # [place] # Eos # Baso # Seg Neutrophils % Seg Neuts % (Manual) Lymphocytes % (Manual) Eosinophils % (Manual) Seg Neutrophils # Lymphocytes # (Manual) Eosinophils # (Manual) PT INR D-Dimer POC ABG pH POC ABG pCO2 POC ABG pO2 ABG pO2 ABG HCO3 ABG Base Excess ABG Hemoglobin Oxyhemoglobin Sodium Potassium Chloride Carbon Dioxide BUN Creatinine Glucose POC Glucose 167 H 135 H 136 H Calcium Phosphorus Magnesium ALT Alkaline Phosphatase Total Creatine Kinase CK-MB (CK-2) Rel Index Troponin T Albumin LDL Cholesterol Direct PTH Intact Salicylates Acetaminophen Crossmatch 03/20/19 03/20/19 03/20/19 05:38 08:40 08:40 WBC RBC 2.61 L Hgb 7.1 L Hct 22.0 L MCV MCH 27 L MCHC RDW 19.6 H Plt Count Lymph % (Auto) 8.2 L [place] % (Auto) 8.3 H Eos % (Auto) 5.7 H Baso % (Auto) Lymph # 0.8 L [place] # Eos # 0.5 H Baso # Seg Neutrophils % 77.3 H Seg Neuts % (Manual) Lymphocytes % (Manual) Eosinophils % (Manual) Seg Neutrophils # Lymphocytes # (Manual) Eosinophils # (Manual) PT INR D-Dimer POC ABG pH POC ABG pCO2 POC ABG pO2 ABG pO2 ABG HCO3 ABG Base Excess ABG Hemoglobin Oxyhemoglobin Sodium Potassium Chloride 95.9 L Carbon Dioxide BUN 69 H Creatinine 2.8 H Glucose 115 H POC Glucose 134 H Calcium 10.5 H Phosphorus Magnesium ALT Alkaline Phosphatase Total Creatine Kinase CK-MB (CK-2) Rel Index Troponin T Albumin LDL Cholesterol Direct PTH Intact Salicylates Acetaminophen Crossmatch 03/20/19 03/20/19 03/20/19 12:13 18:04 23:49 WBC RBC Hgb Hct MCV MCH MCHC RDW Plt Count Lymph % (Auto) [place] % (Auto) Eos % (Auto) Baso % (Auto) Lymph # [place] # Eos # Baso # Seg Neutrophils % Seg Neuts % (Manual) Lymphocytes % (Manual) Eosinophils % (Manual) Seg Neutrophils # Lymphocytes # (Manual) Eosinophils # (Manual) PT INR D-Dimer POC ABG pH POC ABG pCO2 POC ABG pO2 ABG pO2 ABG HCO3 ABG Base Excess ABG Hemoglobin Oxyhemoglobin Sodium Potassium Chloride Carbon Dioxide BUN Creatinine Glucose POC Glucose 144 H 165 H 172 H Calcium Phosphorus Magnesium ALT Alkaline Phosphatase Total Creatine Kinase CK-MB (CK-2) Rel Index Troponin T Albumin LDL Cholesterol Direct PTH Intact Salicylates Acetaminophen Crossmatch 03/21/19 03/21/19 03/21/19 05:00 06:29 06:30 WBC RBC 2.72 L Hgb 7.4 L Hct 22.9 L MCV MCH 27 L MCHC RDW 19.4 H Plt Count Lymph % (Auto) [place] % (Auto) Eos % (Auto) Baso % (Auto) Lymph # [place] # Eos # Baso # Seg Neutrophils % Seg Neuts % (Manual) 81.0 H Lymphocytes % (Manual) 8.0 L Eosinophils % (Manual) 8.0 H Seg Neutrophils # Lymphocytes # (Manual) 0.7 L Eosinophils # (Manual) 0.7 H PT INR D-Dimer POC ABG pH POC ABG pCO2 POC ABG pO2 ABG pO2 ABG HCO3 ABG Base Excess ABG Hemoglobin Oxyhemoglobin Sodium Potassium Chloride Carbon Dioxide 33 H BUN 43 H Creatinine 1.7 H Glucose 145 H POC Glucose 156 H Calcium Phosphorus Magnesium ALT Alkaline Phosphatase 212 H Total Creatine Kinase CK-MB (CK-2) Rel Index Troponin T Albumin 2.2 L LDL Cholesterol Direct PTH Intact Salicylates Acetaminophen Crossmatch 03/21/19 03/21/19 03/22/19 12:02 18:07 00:21 WBC RBC Hgb Hct MCV MCH MCHC RDW Plt Count Lymph % (Auto) [place] % (Auto) Eos % (Auto) Baso % (Auto) Lymph # [place] # Eos # Baso # Seg Neutrophils % Seg Neuts % (Manual) Lymphocytes % (Manual) Eosinophils % (Manual) Seg Neutrophils # Lymphocytes # (Manual) Eosinophils # (Manual) PT INR D-Dimer POC ABG pH POC ABG pCO2 POC ABG pO2 ABG pO2 ABG HCO3 ABG Base Excess ABG Hemoglobin Oxyhemoglobin Sodium Potassium Chloride Carbon Dioxide BUN Creatinine Glucose POC Glucose 163 H 144 H 153 H Calcium Phosphorus Magnesium ALT Alkaline Phosphatase Total Creatine Kinase CK-MB (CK-2) Rel Index Troponin T Albumin LDL Cholesterol Direct PTH Intact Salicylates Acetaminophen Crossmatch 03/22/19 03/22/19 03/22/19 05:23 05:23 05:31 WBC RBC 2.58 L Hgb 7.1 L Hct 21.8 L MCV MCH 27 L MCHC RDW 19.2 H Plt Count Lymph % (Auto) [place] % (Auto) Eos % (Auto) Baso % (Auto) Lymph # [place] # Eos # Baso # Seg Neutrophils % Seg Neuts % (Manual) Lymphocytes % (Manual) Eosinophils % (Manual) Seg Neutrophils # Lymphocytes # (Manual) Eosinophils # (Manual) PT INR D-Dimer POC ABG pH POC ABG pCO2 POC ABG pO2 ABG pO2 ABG HCO3 ABG Base Excess ABG Hemoglobin Oxyhemoglobin Sodium 147 H Potassium Chloride Carbon Dioxide BUN 68 H Creatinine 2.5 H Glucose POC Glucose 116 H Calcium 10.3 H Phosphorus Magnesium ALT Alkaline Phosphatase Total Creatine Kinase CK-MB (CK-2) Rel Index Troponin T Albumin LDL Cholesterol Direct PTH Intact Salicylates Acetaminophen Crossmatch 03/22/19 03/22/19 03/22/19 08:48 12:37 17:35 WBC RBC Hgb Hct MCV MCH MCHC RDW Plt Count Lymph % (Auto) [place] % (Auto) Eos % (Auto) Baso % (Auto) Lymph # [place] # Eos # Baso # Seg Neutrophils % Seg Neuts % (Manual) Lymphocytes % (Manual) Eosinophils % (Manual) Seg Neutrophils # Lymphocytes # (Manual) Eosinophils # (Manual) PT INR D-Dimer POC ABG pH POC ABG pCO2 POC ABG pO2 ABG pO2 ABG HCO3 ABG Base Excess ABG Hemoglobin Oxyhemoglobin Sodium Potassium Chloride Carbon Dioxide BUN Creatinine Glucose POC Glucose 143 H 155 H Calcium Phosphorus Magnesium ALT Alkaline Phosphatase Total Creatine Kinase CK-MB (CK-2) Rel Index Troponin T Albumin LDL Cholesterol Direct PTH Intact Salicylates Acetaminophen Crossmatch See Detail 03/23/19 03/23/19 03/23/19 00:07 04:00 04:00 WBC 11.2 H RBC 2.32 L Hgb 6.4 L Hct 19.7 L* MCV MCH MCHC RDW 19.4 H Plt Count Lymph % (Auto) [place] % (Auto) Eos % (Auto) Baso % (Auto) Lymph # [place] # Eos # Baso # Seg Neutrophils % Seg Neuts % (Manual) Lymphocytes % (Manual) Eosinophils % (Manual) Seg Neutrophils # Lymphocytes # (Manual) Eosinophils # (Manual) PT INR D-Dimer POC ABG pH POC ABG pCO2 POC ABG pO2 ABG pO2 ABG HCO3 ABG Base Excess ABG Hemoglobin Oxyhemoglobin Sodium 147 H Potassium 5.2 H Chloride Carbon Dioxide BUN 86 H Creatinine 3.2 H Glucose 128 H POC Glucose 135 H Calcium 10.3 H Phosphorus Magnesium ALT Alkaline Phosphatase Total Creatine Kinase CK-MB (CK-2) Rel Index Troponin T Albumin LDL Cholesterol Direct PTH Intact Salicylates Acetaminophen Crossmatch 03/23/19 03/23/19 03/23/19 05:21 11:36 11:36 WBC RBC Hgb 7.9 L Hct 25.0 L MCV MCH MCHC RDW Plt Count Lymph % (Auto) [place] % (Auto) Eos % (Auto) Baso % (Auto) Lymph # [place] # Eos # Baso # Seg Neutrophils % Seg Neuts % (Manual) Lymphocytes % (Manual) Eosinophils % (Manual) Seg Neutrophils # Lymphocytes # (Manual) Eosinophils # (Manual) PT INR D-Dimer POC ABG pH POC ABG pCO2 POC ABG pO2 ABG pO2 ABG HCO3 ABG Base Excess ABG Hemoglobin Oxyhemoglobin Sodium Potassium Chloride Carbon Dioxide BUN Creatinine Glucose POC Glucose 132 H 147 H Calcium Phosphorus Magnesium ALT Alkaline Phosphatase Total Creatine Kinase CK-MB (CK-2) Rel Index Troponin T Albumin LDL Cholesterol Direct PTH Intact Salicylates Acetaminophen Crossmatch 03/23/19 03/24/19 03/24/19 17:31 01:22 04:20 WBC 12.2 H RBC 3.05 L Hgb 8.3 L Hct 25.9 L MCV MCH 27 L MCHC RDW 18.7 H Plt Count Lymph % (Auto) [place] % (Auto) Eos % (Auto) Baso % (Auto) Lymph # [place] # Eos # Baso # Seg Neutrophils % Seg Neuts % (Manual) Lymphocytes % (Manual) Eosinophils % (Manual) Seg Neutrophils # Lymphocytes # (Manual) Eosinophils # (Manual) PT INR D-Dimer POC ABG pH POC ABG pCO2 POC ABG pO2 ABG pO2 ABG HCO3 ABG Base Excess ABG Hemoglobin Oxyhemoglobin Sodium Potassium Chloride Carbon Dioxide BUN Creatinine Glucose POC Glucose 182 H 113 H Calcium Phosphorus Magnesium ALT Alkaline Phosphatase Total Creatine Kinase CK-MB (CK-2) Rel Index Troponin T Albumin LDL Cholesterol Direct PTH Intact Salicylates Acetaminophen Crossmatch 03/24/19 03/24/19 03/24/19 04:20 11:59 18:14 WBC RBC Hgb Hct MCV MCH MCHC RDW Plt Count Lymph % (Auto) [place] % (Auto) Eos % (Auto) Baso % (Auto) Lymph # [place] # Eos # Baso # Seg Neutrophils % Seg Neuts % (Manual) Lymphocytes % (Manual) Eosinophils % (Manual) Seg Neutrophils # Lymphocytes # (Manual) Eosinophils # (Manual) PT INR D-Dimer POC ABG pH POC ABG pCO2 POC ABG pO2 ABG pO2 ABG HCO3 ABG Base Excess ABG Hemoglobin Oxyhemoglobin Sodium Potassium Chloride 94.8 L Carbon Dioxide 32 H BUN 53 H Creatinine 2.3 H Glucose POC Glucose 163 H 134 H Calcium Phosphorus Magnesium ALT Alkaline Phosphatase Total Creatine Kinase CK-MB (CK-2) Rel Index Troponin T Albumin LDL Cholesterol Direct PTH Intact Salicylates Acetaminophen Crossmatch 03/24/19 03/25/19 03/25/19 23:15 05:52 12:02 WBC RBC Hgb Hct MCV MCH MCHC RDW Plt Count Lymph % (Auto) [place] % (Auto) Eos % (Auto) Baso % (Auto) Lymph # [place] # Eos # Baso # Seg Neutrophils % Seg Neuts % (Manual) Lymphocytes % (Manual) Eosinophils % (Manual) Seg Neutrophils # Lymphocytes # (Manual) Eosinophils # (Manual) PT INR D-Dimer POC ABG pH POC ABG pCO2 POC ABG pO2 ABG pO2 ABG HCO3 ABG Base Excess ABG Hemoglobin Oxyhemoglobin Sodium Potassium Chloride Carbon Dioxide BUN Creatinine Glucose POC Glucose 129 H 123 H 125 H Calcium Phosphorus Magnesium ALT Alkaline Phosphatase Total Creatine Kinase CK-MB (CK-2) Rel Index Troponin T Albumin LDL Cholesterol Direct PTH Intact Salicylates Acetaminophen Crossmatch 03/25/19 03/26/19 03/26/19 17:27 00:30 05:35 WBC RBC 3.01 L Hgb 8.1 L Hct 25.7 L MCV MCH 27 L MCHC RDW 19.2 H Plt Count Lymph % (Auto) 11.4 L [place] % (Auto) Eos % (Auto) 8.0 H Baso % (Auto) Lymph # 1.0 L [place] # Eos # 0.7 H Baso # Seg Neutrophils % 73.9 H Seg Neuts % (Manual) Lymphocytes % (Manual) Eosinophils % (Manual) Seg Neutrophils # Lymphocytes # (Manual) Eosinophils # (Manual) PT INR D-Dimer POC ABG pH POC ABG pCO2 POC ABG pO2 ABG pO2 ABG HCO3 ABG Base Excess ABG Hemoglobin Oxyhemoglobin Sodium Potassium Chloride Carbon Dioxide BUN Creatinine Glucose POC Glucose 130 H 129 H Calcium Phosphorus Magnesium ALT Alkaline Phosphatase Total Creatine Kinase CK-MB (CK-2) Rel Index Troponin T Albumin LDL Cholesterol Direct PTH Intact Salicylates Acetaminophen Crossmatch 03/26/19 03/26/19 03/26/19 05:35 05:45 12:16 WBC RBC Hgb Hct MCV MCH MCHC RDW Plt Count Lymph % (Auto) [place] % (Auto) Eos % (Auto) Baso % (Auto) Lymph # [place] # Eos # Baso # Seg Neutrophils % Seg Neuts % (Manual) Lymphocytes % (Manual) Eosinophils % (Manual) Seg Neutrophils # Lymphocytes # (Manual) Eosinophils # (Manual) PT INR D-Dimer POC ABG pH POC ABG pCO2 POC ABG pO2 ABG pO2 ABG HCO3 ABG Base Excess ABG Hemoglobin Oxyhemoglobin Sodium Potassium Chloride 94.9 L Carbon Dioxide 31 H BUN 44 H Creatinine 2.0 H Glucose POC Glucose 118 H 107 H Calcium Phosphorus Magnesium ALT Alkaline Phosphatase Total Creatine Kinase CK-MB (CK-2) Rel Index Troponin T Albumin LDL Cholesterol Direct PTH Intact Salicylates Acetaminophen Crossmatch 03/26/19 03/27/1903/27/19 17:56 00:36 05:37 WBC RBC Hgb Hct MCV MCH MCHC RDW Plt Count Lymph % (Auto) [place] % (Auto) Eos % (Auto) Baso % (Auto) Lymph # [place] # Eos # Baso # Seg Neutrophils % Seg Neuts % (Manual) Lymphocytes % (Manual) Eosinophils % (Manual) Seg Neutrophils # Lymphocytes # (Manual) Eosinophils # (Manual) PT INR D-Dimer POC ABG pH POC ABG pCO2 POC ABG pO2 ABG pO2 ABG HCO3 ABG Base Excess ABG Hemoglobin Oxyhemoglobin Sodium Potassium Chloride Carbon Dioxide BUN Creatinine Glucose POC Glucose 107 H 110 H 122 H Calcium Phosphorus Magnesium ALT Alkaline Phosphatase Total Creatine Kinase CK-MB (CK-2) Rel Index Troponin T Albumin LDL Cholesterol Direct PTH Intact Salicylates Acetaminophen Crossmatch 03/27/19 03/27/19 03/28/19 11:22 18:00 05:17 WBC RBC Hgb Hct MCV MCH MCHC RDW Plt Count Lymph % (Auto) [place] % (Auto) Eos % (Auto) Baso % (Auto) Lymph # [place] # Eos # Baso # Seg Neutrophils % Seg Neuts % (Manual) Lymphocytes % (Manual) Eosinophils % (Manual) Seg Neutrophils # Lymphocytes # (Manual) Eosinophils # (Manual) PT INR D-Dimer POC ABG pH POC ABG pCO2 POC ABG pO2 ABG pO2 ABG HCO3 ABG Base Excess ABG Hemoglobin Oxyhemoglobin Sodium Potassium Chloride Carbon Dioxide BUN Creatinine Glucose POC Glucose 120 H 111 H 107 H Calcium Phosphorus Magnesium ALT Alkaline Phosphatase Total Creatine Kinase CK-MB (CK-2) Rel Index Troponin T Albumin LDL Cholesterol Direct PTH Intact Salicylates Acetaminophen Crossmatch 03/28/19 03/28/19 03/29/19 12:27 18:08 05:47 WBC RBC Hgb Hct MCV MCH MCHC RDW Plt Count Lymph % (Auto) [place] % (Auto) Eos % (Auto) Baso % (Auto) Lymph # [place] # Eos # Baso # Seg Neutrophils % Seg Neuts % (Manual) Lymphocytes % (Manual) Eosinophils % (Manual) Seg Neutrophils # Lymphocytes # (Manual) Eosinophils # (Manual) PT INR D-Dimer POC ABG pH POC ABG pCO2 POC ABG pO2 ABG pO2 ABG HCO3 ABG Base Excess ABG Hemoglobin Oxyhemoglobin Sodium Potassium Chloride Carbon Dioxide BUN Creatinine Glucose POC Glucose 114 H 121 H 112 H Calcium Phosphorus Magnesium ALT Alkaline Phosphatase Total Creatine Kinase CK-MB (CK-2) Rel Index Troponin T Albumin LDL Cholesterol Direct PTH Intact Salicylates Acetaminophen Crossmatch 03/29/19 03/29/19 03/30/19 12:14 18:08 00:31 WBC RBC Hgb Hct MCV MCH MCHC RDW Plt Count Lymph % (Auto) [place] % (Auto) Eos % (Auto) Baso % (Auto) Lymph # [place] # Eos # Baso # Seg Neutrophils % Seg Neuts % (Manual) Lymphocytes % (Manual) Eosinophils % (Manual) Seg Neutrophils # Lymphocytes # (Manual) Eosinophils # (Manual) PT INR D-Dimer POC ABG pH POC ABG pCO2 POC ABG pO2 ABG pO2 ABG HCO3 ABG Base Excess ABG Hemoglobin Oxyhemoglobin Sodium Potassium Chloride Carbon Dioxide BUN Creatinine Glucose POC Glucose 117 H 140 H 114 H Calcium Phosphorus Magnesium ALT Alkaline Phosphatase Total Creatine Kinase CK-MB (CK-2) Rel Index Troponin T Albumin LDL Cholesterol Direct PTH Intact Salicylates Acetaminophen Crossmatch 03/30/19 03/30/19 03/30/19 10:13 10:13 23:53 WBC RBC 2.81 L Hgb 7.7 L Hct 24.3 L MCV MCH 27 L MCHC RDW 19.0 H Plt Count Lymph % (Auto) 12.2 L [place] % (Auto) Eos % (Auto) 7.9 H Baso % (Auto) Lymph # 1.0 L [place] # Eos # 0.6 H Baso # Seg Neutrophils % 72.3 H Seg Neuts % (Manual) Lymphocytes % (Manual) Eosinophils % (Manual) Seg Neutrophils # Lymphocytes # (Manual) Eosinophils # (Manual) PT INR D-Dimer POC ABG pH POC ABG pCO2 POC ABG pO2 ABG pO2 ABG HCO3 ABG Base Excess ABG Hemoglobin Oxyhemoglobin Sodium Potassium 5.1 H Chloride 96.5 L Carbon Dioxide BUN 73 H Creatinine 3.9 H D Glucose POC Glucose 114 H Calcium 10.3 H Phosphorus 6.30 H Magnesium 2.70 H ALT Alkaline Phosphatase 185 H Total Creatine Kinase CK-MB (CK-2) Rel Index Troponin T Albumin 2.6 L LDL Cholesterol Direct PTH Intact Salicylates Acetaminophen Crossmatch 03/31/19 03/31/19 03/31/19 05:45 10:26 10:26 WBC RBC 3.01 L Hgb 8.2 L Hct 26.4 L MCV MCH 27 L MCHC 31 L RDW 20.3 H Plt Count Lymph % (Auto) 13.3 L [place] % (Auto) Eos % (Auto) 7.2 H Baso % (Auto) Lymph # 1.1 L [place] # Eos # 0.6 H Baso # Seg Neutrophils % 72.1 H Seg Neuts % (Manual) Lymphocytes % (Manual) Eosinophils % (Manual) Seg Neutrophils # Lymphocytes # (Manual) Eosinophils # (Manual) PT INR D-Dimer POC ABG pH POC ABG pCO2 POC ABG pO2 ABG pO2 ABG HCO3 ABG Base Excess ABG Hemoglobin Oxyhemoglobin Sodium Potassium Chloride 96.9 L Carbon Dioxide 33 H BUN 37 H Creatinine 2.4 H Glucose POC Glucose 108 H Calcium 10.3 H Phosphorus Magnesium ALT Alkaline Phosphatase Total Creatine Kinase CK-MB (CK-2) Rel Index Troponin T Albumin LDL Cholesterol Direct PTH Intact Salicylates Acetaminophen Crossmatch 03/31/19 04/01/19 04/01/19 12:38 05:48 12:06 WBC RBC Hgb Hct MCV MCH MCHC RDW Plt Count Lymph % (Auto) [place] % (Auto) Eos % (Auto) Baso % (Auto) Lymph # [place] # Eos # Baso # Seg Neutrophils % Seg Neuts % (Manual) Lymphocytes % (Manual) Eosinophils % (Manual) Seg Neutrophils # Lymphocytes # (Manual) Eosinophils # (Manual) PT INR D-Dimer POC ABG pH POC ABG pCO2 POC ABG pO2 ABG pO2 ABG HCO3 ABG Base Excess ABG Hemoglobin Oxyhemoglobin Sodium Potassium Chloride Carbon Dioxide BUN Creatinine Glucose POC Glucose 108 H 114 H 111 H Calcium Phosphorus Magnesium ALT Alkaline Phosphatase Total Creatine Kinase CK-MB (CK-2) Rel Index Troponin T Albumin LDL Cholesterol Direct PTH Intact Salicylates Acetaminophen Crossmatch 04/01/19 04/02/19 04/04/19 18:24 00:36 23:55 WBC RBC Hgb Hct MCV MCH MCHC RDW Plt Count Lymph % (Auto) [place] % (Auto) Eos % (Auto) Baso % (Auto) Lymph # [place] # Eos # Baso # Seg Neutrophils % Seg Neuts % (Manual) Lymphocytes % (Manual) Eosinophils % (Manual) Seg Neutrophils # Lymphocytes # (Manual) Eosinophils # (Manual) PT INR D-Dimer POC ABG pH POC ABG pCO2 POC ABG pO2 ABG pO2 ABG HCO3 ABG Base Excess ABG Hemoglobin Oxyhemoglobin Sodium Potassium Chloride Carbon Dioxide BUN Creatinine Glucose POC Glucose 113 H 117 H 109 H Calcium Phosphorus Magnesium ALT Alkaline Phosphatase Total Creatine Kinase CK-MB (CK-2) Rel Index Troponin T Albumin LDL Cholesterol Direct PTH Intact Salicylates Acetaminophen Crossmatch 04/06/19 04/06/19 04/06/19 00:11 06:02 23:30 WBC RBC Hgb Hct MCV MCH MCHC RDW Plt Count Lymph % (Auto) [place] % (Auto) Eos % (Auto) Baso % (Auto) Lymph # [place] # Eos # Baso # Seg Neutrophils % Seg Neuts % (Manual) Lymphocytes % (Manual) Eosinophils % (Manual) Seg Neutrophils # Lymphocytes # (Manual) Eosinophils # (Manual) PT INR D-Dimer POC ABG pH POC ABG pCO2 POC ABG pO2 ABG pO2 ABG HCO3 ABG Base Excess ABG Hemoglobin Oxyhemoglobin Sodium Potassium Chloride Carbon Dioxide BUN Creatinine Glucose POC Glucose 116 H 112 H 112 H Calcium Phosphorus Magnesium ALT Alkaline Phosphatase Total Creatine Kinase CK-MB (CK-2) Rel Index Troponin T Albumin LDL Cholesterol Direct PTH Intact Salicylates Acetaminophen Crossmatch 04/08/19 04/08/19 04/08/19 02:23 06:19 13:01 WBC RBC Hgb Hct MCV MCH MCHC RDW Plt Count Lymph % (Auto) [place] % (Auto) Eos % (Auto) Baso % (Auto) Lymph # [place] # Eos # Baso # Seg Neutrophils % Seg Neuts % (Manual) Lymphocytes % (Manual) Eosinophils % (Manual) Seg Neutrophils # Lymphocytes # (Manual) Eosinophils # (Manual) PT INR D-Dimer POC ABG pH POC ABG pCO2 POC ABG pO2 ABG pO2 ABG HCO3 ABG Base Excess ABG Hemoglobin Oxyhemoglobin Sodium Potassium Chloride Carbon Dioxide BUN Creatinine Glucose POC Glucose 144 H 126 H 118 H Calcium Phosphorus Magnesium ALT Alkaline Phosphatase Total Creatine Kinase CK-MB (CK-2) Rel Index Troponin T Albumin LDL Cholesterol Direct PTH Intact Salicylates Acetaminophen Crossmatch 04/08/19 04/09/19 04/10/19 23:28 05:52 06:34 WBC RBC Hgb Hct MCV MCH MCHC RDW Plt Count Lymph % (Auto) [place] % (Auto) Eos % (Auto) Baso % (Auto) Lymph # [place] # Eos # Baso # Seg Neutrophils % Seg Neuts % (Manual) Lymphocytes % (Manual) Eosinophils % (Manual) Seg Neutrophils # Lymphocytes # (Manual) Eosinophils # (Manual) PT INR D-Dimer POC ABG pH POC ABG pCO2 POC ABG pO2 ABG pO2 ABG HCO3 ABG Base Excess ABG Hemoglobin Oxyhemoglobin Sodium Potassium Chloride Carbon Dioxide BUN Creatinine Glucose POC Glucose 119 H 116 H 114 H Calcium Phosphorus Magnesium ALT Alkaline Phosphatase Total Creatine Kinase CK-MB (CK-2) Rel Index Troponin T Albumin LDL Cholesterol Direct PTH Intact Salicylates Acetaminophen Crossmatch 04/10/19 04/10/19 04/11/19 12:34 18:59 00:36 WBC RBC Hgb Hct MCV MCH MCHC RDW Plt Count Lymph % (Auto) [place] % (Auto) Eos % (Auto) Baso % (Auto) Lymph # [place] # Eos # Baso # Seg Neutrophils % Seg Neuts % (Manual) Lymphocytes % (Manual) Eosinophils % (Manual) Seg Neutrophils # Lymphocytes # (Manual) Eosinophils # (Manual) PT INR D-Dimer POC ABG pH POC ABG pCO2 POC ABG pO2 ABG pO2 ABG HCO3 ABG Base Excess ABG Hemoglobin Oxyhemoglobin Sodium Potassium Chloride Carbon Dioxide BUN Creatinine Glucose POC Glucose 112 H 109 H 124 H Calcium Phosphorus Magnesium ALT Alkaline Phosphatase Total Creatine Kinase CK-MB (CK-2) Rel Index Troponin T Albumin LDL Cholesterol Direct PTH Intact Salicylates Acetaminophen Crossmatch 04/11/19 04/11/19 04/12/19 08:01 17:25 02:18 WBC RBC Hgb Hct MCV MCH MCHC RDW Plt Count Lymph % (Auto) [place] % (Auto) Eos % (Auto) Baso % (Auto) Lymph # [place] # Eos # Baso # Seg Neutrophils % Seg Neuts % (Manual) Lymphocytes % (Manual) Eosinophils % (Manual) Seg Neutrophils # Lymphocytes # (Manual) Eosinophils # (Manual) PT INR D-Dimer POC ABG pH POC ABG pCO2 POC ABG pO2 ABG pO2 ABG HCO3 ABG Base Excess ABG Hemoglobin Oxyhemoglobin Sodium Potassium Chloride Carbon Dioxide BUN Creatinine Glucose POC Glucose 118 H 106 H 125 H Calcium Phosphorus Magnesium ALT Alkaline Phosphatase Total Creatine Kinase CK-MB (CK-2) Rel Index Troponin T Albumin LDL Cholesterol Direct PTH Intact Salicylates Acetaminophen Crossmatch 04/12/19 04/12/19 04/12/19 06:24 12:22 17:13 WBC RBC Hgb Hct MCV MCH MCHC RDW Plt Count Lymph % (Auto) [place] % (Auto) Eos % (Auto) Baso % (Auto) Lymph # [place] # Eos # Baso # Seg Neutrophils % Seg Neuts % (Manual) Lymphocytes % (Manual) Eosinophils % (Manual) Seg Neutrophils # Lymphocytes # (Manual) Eosinophils # (Manual) PT INR D-Dimer POC ABG pH POC ABG pCO2 POC ABG pO2 ABG pO2 ABG HCO3 ABG Base Excess ABG Hemoglobin Oxyhemoglobin Sodium Potassium Chloride Carbon Dioxide BUN Creatinine Glucose POC Glucose 128 H 114 H 110 H Calcium Phosphorus Magnesium ALT Alkaline Phosphatase Total Creatine Kinase CK-MB (CK-2) Rel Index Troponin T Albumin LDL Cholesterol Direct PTH Intact Salicylates Acetaminophen Crossmatch 04/13/19 04/13/19 04/13/19 06:59 07:31 07:31 WBC RBC 3.34 L Hgb 8.9 L Hct 28.6 L MCV MCH 27 L MCHC 31 L RDW 19.6 H Plt Count Lymph % (Auto) [place] % (Auto) Eos % (Auto) Baso % (Auto) Lymph # [place] # Eos # Baso # Seg Neutrophils % Seg Neuts % (Manual) Lymphocytes % (Manual) Eosinophils % (Manual) Seg Neutrophils # Lymphocytes # (Manual) Eosinophils # (Manual) PT INR D-Dimer POC ABG pH POC ABG pCO2 POC ABG pO2 ABG pO2 ABG HCO3 ABG Base Excess ABG Hemoglobin Oxyhemoglobin Sodium Potassium Chloride 96.4 L Carbon Dioxide 33 H BUN 66 H Creatinine 4.5 H Glucose 103 H POC Glucose 107 H Calcium Phosphorus Magnesium ALT Alkaline Phosphatase Total Creatine Kinase CK-MB (CK-2) Rel Index Troponin T Albumin LDL Cholesterol Direct PTH Intact Salicylates Acetaminophen Crossmatch 04/13/19 04/14/19 04/14/19 23:43 05:50 13:07 WBC RBC Hgb Hct MCV MCH MCHC RDW Plt Count Lymph % (Auto) [place] % (Auto) Eos % (Auto) Baso % (Auto) Lymph # [place] # Eos # Baso # Seg Neutrophils % Seg Neuts % (Manual) Lymphocytes % (Manual) Eosinophils % (Manual) Seg Neutrophils # Lymphocytes # (Manual) Eosinophils # (Manual) PT INR D-Dimer POC ABG pH POC ABG pCO2 POC ABG pO2 ABG pO2 ABG HCO3 ABG Base Excess ABG Hemoglobin Oxyhemoglobin Sodium Potassium Chloride Carbon Dioxide BUN Creatinine Glucose POC Glucose 119 H 112 H 112 H Calcium Phosphorus Magnesium ALT Alkaline Phosphatase Total Creatine Kinase CK-MB (CK-2) Rel Index Troponin T Albumin LDL Cholesterol Direct PTH Intact Salicylates Acetaminophen Crossmatch 04/14/19 04/15/19 04/15/19 18:35 01:18 05:17 WBC RBC Hgb Hct MCV MCH MCHC RDW Plt Count Lymph % (Auto) [place] % (Auto) Eos % (Auto) Baso % (Auto) Lymph # [place] # Eos # Baso # Seg Neutrophils % Seg Neuts % (Manual) Lymphocytes % (Manual) Eosinophils % (Manual) Seg Neutrophils # Lymphocytes # (Manual) Eosinophils # (Manual) PT INR D-Dimer POC ABG pH POC ABG pCO2 POC ABG pO2 ABG pO2 ABG HCO3 ABG Base Excess ABG Hemoglobin Oxyhemoglobin Sodium Potassium Chloride Carbon Dioxide BUN Creatinine Glucose POC Glucose 114 H 114 H 114 H Calcium Phosphorus Magnesium ALT Alkaline Phosphatase Total Creatine Kinase CK-MB (CK-2) Rel Index Troponin T Albumin LDL Cholesterol Direct PTH Intact Salicylates Acetaminophen Crossmatch 04/15/19 04/15/19 04/16/19 11:50 23:39 05:41 WBC RBC Hgb Hct MCV MCH MCHC RDW Plt Count Lymph % (Auto) [place] % (Auto) Eos % (Auto) Baso % (Auto) Lymph # [place] # Eos # Baso # Seg Neutrophils % Seg Neuts % (Manual) Lymphocytes % (Manual) Eosinophils % (Manual) Seg Neutrophils # Lymphocytes # (Manual) Eosinophils # (Manual) PT INR D-Dimer POC ABG pH POC ABG pCO2 POC ABG pO2 ABG pO2 ABG HCO3 ABG Base Excess ABG Hemoglobin Oxyhemoglobin Sodium Potassium Chloride Carbon Dioxide BUN Creatinine Glucose POC Glucose 109 H 115 H 125 H Calcium Phosphorus Magnesium ALT Alkaline Phosphatase Total Creatine Kinase CK-MB (CK-2) Rel Index Troponin T Albumin LDL Cholesterol Direct PTH Intact Salicylates Acetaminophen Crossmatch 04/16/19 04/17/19 04/17/19 12:53 01:00 12:38 WBC RBC Hgb Hct MCV MCH MCHC RDW Plt Count Lymph % (Auto) [place] % (Auto) Eos % (Auto) Baso % (Auto) Lymph # [place] # Eos # Baso # Seg Neutrophils % Seg Neuts % (Manual) Lymphocytes % (Manual) Eosinophils % (Manual) Seg Neutrophils # Lymphocytes # (Manual) Eosinophils # (Manual) PT INR D-Dimer POC ABG pH POC ABG pCO2 POC ABG pO2 ABG pO2 ABG HCO3 ABG Base Excess ABG Hemoglobin Oxyhemoglobin Sodium Potassium Chloride Carbon Dioxide BUN Creatinine Glucose POC Glucose 121 H 127 H 159 H Calcium Phosphorus Magnesium ALT Alkaline Phosphatase Total Creatine Kinase CK-MB (CK-2) Rel Index Troponin T Albumin LDL Cholesterol Direct PTH Intact Salicylates Acetaminophen Crossmatch 04/17/19 04/17/19 04/18/19 18:27 23:36 07:19 WBC RBC 3.49 L Hgb 9.0 L Hct 29.9 L MCV MCH 26 L MCHC 30 L RDW 20.0 H Plt Count Lymph % (Auto) [place] % (Auto) Eos % (Auto) Baso % (Auto) Lymph # [place] # Eos # Baso # Seg Neutrophils % Seg Neuts % (Manual) Lymphocytes % (Manual) Eosinophils % (Manual) Seg Neutrophils # Lymphocytes # (Manual) Eosinophils # (Manual) PT INR D-Dimer POC ABG pH POC ABG pCO2 POC ABG pO2 ABG pO2 ABG HCO3 ABG Base Excess ABG Hemoglobin Oxyhemoglobin Sodium Potassium Chloride Carbon Dioxide BUN Creatinine Glucose POC Glucose 109 H 134 H Calcium Phosphorus Magnesium ALT Alkaline Phosphatase Total Creatine Kinase CK-MB (CK-2) Rel Index Troponin T Albumin LDL Cholesterol Direct PTH Intact Salicylates Acetaminophen Crossmatch 04/18/19 04/18/19 04/18/19 07:19 12:16 17:09 WBC RBC Hgb Hct MCV MCH MCHC RDW Plt Count Lymph % (Auto) [place] % (Auto) Eos % (Auto) Baso % (Auto) Lymph # [place] # Eos # Baso # Seg Neutrophils % Seg Neuts % (Manual) Lymphocytes % (Manual) Eosinophils % (Manual) Seg Neutrophils # Lymphocytes # (Manual) Eosinophils # (Manual) PT INR D-Dimer POC ABG pH POC ABG pCO2 POC ABG pO2 ABG pO2 ABG HCO3 ABG Base Excess ABG Hemoglobin Oxyhemoglobin Sodium Potassium Chloride Carbon Dioxide BUN 41 H Creatinine 2.9 H Glucose 122 H POC Glucose 125 H 131 H Calcium Phosphorus Magnesium ALT Alkaline Phosphatase Total Creatine Kinase CK-MB (CK-2) Rel Index Troponin T Albumin LDL Cholesterol Direct PTH Intact Salicylates Acetaminophen Crossmatch 04/18/19 04/19/19 04/19/19 23:57 05:55 11:35 WBC RBC Hgb Hct MCV MCH MCHC RDW Plt Count Lymph % (Auto) [place] % (Auto) Eos % (Auto) Baso % (Auto) Lymph # [place] # Eos # Baso # Seg Neutrophils % Seg Neuts % (Manual) Lymphocytes % (Manual) Eosinophils % (Manual) Seg Neutrophils # Lymphocytes # (Manual) Eosinophils # (Manual) PT INR D-Dimer POC ABG pH POC ABG pCO2 POC ABG pO2 ABG pO2 ABG HCO3 ABG Base Excess ABG Hemoglobin Oxyhemoglobin Sodium Potassium Chloride Carbon Dioxide BUN Creatinine Glucose POC Glucose 159 H 144 H 177 H Calcium Phosphorus Magnesium ALT Alkaline Phosphatase Total Creatine Kinase CK-MB (CK-2) Rel Index Troponin T Albumin LDL Cholesterol Direct PTH Intact Salicylates Acetaminophen Crossmatch 04/19/19 04/20/19 04/20/19 16:36 02:05 06:28 WBC RBC Hgb Hct MCV MCH MCHC RDW Plt Count Lymph % (Auto) [place] % (Auto) Eos % (Auto) Baso % (Auto) Lymph # [place] # Eos # Baso # Seg Neutrophils % Seg Neuts % (Manual) Lymphocytes % (Manual) Eosinophils % (Manual) Seg Neutrophils # Lymphocytes # (Manual) Eosinophils # (Manual) PT INR D-Dimer POC ABG pH POC ABG pCO2 POC ABG pO2 ABG pO2 ABG HCO3 ABG Base Excess ABG Hemoglobin Oxyhemoglobin Sodium Potassium Chloride Carbon Dioxide BUN Creatinine Glucose POC Glucose 134 H 142 H 132 H Calcium Phosphorus Magnesium ALT Alkaline Phosphatase Total Creatine Kinase CK-MB (CK-2) Rel Index Troponin T Albumin LDL Cholesterol Direct PTH Intact Salicylates Acetaminophen Crossmatch 04/20/19 04/20/19 04/21/19 12:37 23:34 05:59 WBC RBC Hgb Hct MCV MCH MCHC RDW Plt Count Lymph % (Auto) [place] % (Auto) Eos % (Auto) Baso % (Auto) Lymph # [place] # Eos # Baso # Seg Neutrophils % Seg Neuts % (Manual) Lymphocytes % (Manual) Eosinophils % (Manual) Seg Neutrophils # Lymphocytes # (Manual) Eosinophils # (Manual) PT INR D-Dimer POC ABG pH POC ABG pCO2 POC ABG pO2 ABG pO2 ABG HCO3 ABG Base Excess ABG Hemoglobin Oxyhemoglobin Sodium Potassium Chloride Carbon Dioxide BUN Creatinine Glucose POC Glucose 163 H 166 H 140 H Calcium Phosphorus Magnesium ALT Alkaline Phosphatase Total Creatine Kinase CK-MB (CK-2) Rel Index Troponin T Albumin LDL Cholesterol Direct PTH Intact Salicylates Acetaminophen Crossmatch 04/21/19 04/21/19 04/21/19 12:07 17:22 23:43 WBC RBC Hgb Hct MCV MCH MCHC RDW Plt Count Lymph % (Auto) [place] % (Auto) Eos % (Auto) Baso % (Auto) Lymph # [place] # Eos # Baso # Seg Neutrophils % Seg Neuts % (Manual) Lymphocytes % (Manual) Eosinophils % (Manual) Seg Neutrophils # Lymphocytes # (Manual) Eosinophils # (Manual) PT INR D-Dimer POC ABG pH POC ABG pCO2 POC ABG pO2 ABG pO2 ABG HCO3 ABG Base Excess ABG Hemoglobin Oxyhemoglobin Sodium Potassium Chloride Carbon Dioxide BUN Creatinine Glucose POC Glucose 135 H 141 H 138 H Calcium Phosphorus Magnesium ALT Alkaline Phosphatase Total Creatine Kinase CK-MB (CK-2) Rel Index Troponin T Albumin LDL Cholesterol Direct PTH Intact Salicylates Acetaminophen Crossmatch 04/22/19 04/22/19 04/22/19 05:12 18:24 23:49 WBC RBC Hgb Hct MCV MCH MCHC RDW Plt Count Lymph % (Auto) [place] % (Auto) Eos % (Auto) Baso % (Auto) Lymph # [place] # Eos # Baso # Seg Neutrophils % Seg Neuts % (Manual) Lymphocytes % (Manual) Eosinophils % (Manual) Seg Neutrophils # Lymphocytes # (Manual) Eosinophils # (Manual) PT INR D-Dimer POC ABG pH POC ABG pCO2 POC ABG pO2 ABG pO2 ABG HCO3 ABG Base Excess ABG Hemoglobin Oxyhemoglobin Sodium Potassium Chloride Carbon Dioxide BUN Creatinine Glucose POC Glucose 141 H 137 H 142 H Calcium Phosphorus Magnesium ALT Alkaline Phosphatase Total Creatine Kinase CK-MB (CK-2) Rel Index Troponin T Albumin LDL Cholesterol Direct PTH Intact Salicylates Acetaminophen Crossmatch 04/23/19 04/23/19 04/23/19 05:53 08:13 11:58 WBC RBC Hgb Hct MCV MCH MCHC RDW Plt Count Lymph % (Auto) [place] % (Auto) Eos % (Auto) Baso % (Auto) Lymph # [place] # Eos # Baso # Seg Neutrophils % Seg Neuts % (Manual) Lymphocytes % (Manual) Eosinophils % (Manual) Seg Neutrophils # Lymphocytes # (Manual) Eosinophils # (Manual) PT INR D-Dimer POC ABG pH POC ABG pCO2 POC ABG pO2 ABG pO2 ABG HCO3 ABG Base Excess ABG Hemoglobin Oxyhemoglobin Sodium Potassium Chloride Carbon Dioxide BUN Creatinine Glucose POC Glucose 132 H 154 H 165 H Calcium Phosphorus Magnesium ALT Alkaline Phosphatase Total Creatine Kinase CK-MB (CK-2) Rel Index Troponin T Albumin LDL Cholesterol Direct PTH Intact Salicylates Acetaminophen Crossmatch 04/23/19 04/24/19 04/24/19 16:28 00:28 07:00 WBC RBC Hgb Hct MCV MCH MCHC RDW Plt Count Lymph % (Auto) [place] % (Auto) Eos % (Auto) Baso % (Auto) Lymph # [place] # Eos # Baso # Seg Neutrophils % Seg Neuts % (Manual) Lymphocytes % (Manual) Eosinophils % (Manual) Seg Neutrophils # Lymphocytes # (Manual) Eosinophils # (Manual) PT INR D-Dimer POC ABG pH POC ABG pCO2 POC ABG pO2 ABG pO2 ABG HCO3 ABG Base Excess ABG Hemoglobin Oxyhemoglobin Sodium Potassium Chloride Carbon Dioxide BUN Creatinine Glucose POC Glucose 136 H 140 H 141 H Calcium Phosphorus Magnesium ALT Alkaline Phosphatase Total Creatine Kinase CK-MB (CK-2) Rel Index Troponin T Albumin LDL Cholesterol Direct PTH Intact Salicylates Acetaminophen Crossmatch 04/24/19 04/24/19 04/25/19 12:38 18:57 00:38 WBC RBC Hgb Hct MCV MCH MCHC RDW Plt Count Lymph % (Auto) [place] % (Auto) Eos % (Auto) Baso % (Auto) Lymph # [place] # Eos # Baso # Seg Neutrophils % Seg Neuts % (Manual) Lymphocytes % (Manual) Eosinophils % (Manual) Seg Neutrophils # Lymphocytes # (Manual) Eosinophils # (Manual) PT INR D-Dimer POC ABG pH POC ABG pCO2 POC ABG pO2 ABG pO2 ABG HCO3 ABG Base Excess ABG Hemoglobin Oxyhemoglobin Sodium Potassium Chloride Carbon Dioxide BUN Creatinine Glucose POC Glucose 152 H 166 H 128 H Calcium Phosphorus Magnesium ALT Alkaline Phosphatase Total Creatine Kinase CK-MB (CK-2) Rel Index Troponin T Albumin LDL Cholesterol Direct PTH Intact Salicylates Acetaminophen Crossmatch 04/25/19 04/25/19 04/25/19 05:44 13:43 18:34 WBC RBC Hgb Hct MCV MCH MCHC RDW Plt Count Lymph % (Auto) [place] % (Auto) Eos % (Auto) Baso % (Auto) Lymph # [place] # Eos # Baso # Seg Neutrophils % Seg Neuts % (Manual) Lymphocytes % (Manual) Eosinophils % (Manual) Seg Neutrophils # Lymphocytes # (Manual) Eosinophils # (Manual) PT INR D-Dimer POC ABG pH POC ABG pCO2 POC ABG pO2 ABG pO2 ABG HCO3 ABG Base Excess ABG Hemoglobin Oxyhemoglobin Sodium Potassium Chloride Carbon Dioxide BUN Creatinine Glucose POC Glucose 153 H 186 H 124 H Calcium Phosphorus Magnesium ALT Alkaline Phosphatase Total Creatine Kinase CK-MB (CK-2) Rel Index Troponin T Albumin LDL Cholesterol Direct PTH Intact Salicylates Acetaminophen Crossmatch 04/26/19 04/26/19 04/26/19 00:59 05:52 10:12 WBC 11.5 H RBC 2.84 L Hgb 7.4 L Hct 23.3 L MCV 82 L MCH 26 L MCHC RDW 20.3 H Plt Count Lymph % (Auto) 7.5 L [place] % (Auto) 7.5 H Eos % (Auto) 5.3 H Baso % (Auto) Lymph # 0.9 L [place] # 0.9 H Eos # 0.6 H Baso # Seg Neutrophils % 79.2 H Seg Neuts % (Manual) Lymphocytes % (Manual) Eosinophils % (Manual) Seg Neutrophils # 9.1 H Lymphocytes # (Manual) Eosinophils # (Manual) PT INR D-Dimer POC ABG pH POC ABG pCO2 POC ABG pO2 ABG pO2 ABG HCO3 ABG Base Excess ABG Hemoglobin Oxyhemoglobin Sodium Potassium Chloride Carbon Dioxide BUN Creatinine Glucose POC Glucose 163 H 146 H Calcium Phosphorus Magnesium ALT Alkaline Phosphatase Total Creatine Kinase CK-MB (CK-2) Rel Index Troponin T Albumin LDL Cholesterol Direct PTH Intact Salicylates Acetaminophen Crossmatch 04/26/19 04/26/19 04/26/19 10:12 12:15 19:00 WBC RBC Hgb Hct MCV MCH MCHC RDW Plt Count Lymph % (Auto) [place] % (Auto) Eos % (Auto) Baso % (Auto) Lymph # [place] # Eos # Baso # Seg Neutrophils % Seg Neuts % (Manual) Lymphocytes % (Manual) Eosinophils % (Manual) Seg Neutrophils # Lymphocytes # (Manual) Eosinophils # (Manual) PT INR D-Dimer POC ABG pH POC ABG pCO2 POC ABG pO2 ABG pO2 ABG HCO3 ABG Base Excess ABG Hemoglobin Oxyhemoglobin Sodium 130 L Potassium Chloride 87.4 L Carbon Dioxide BUN 93 H Creatinine 4.2 H Glucose 140 H POC Glucose 155 H 179 H Calcium Phosphorus Magnesium ALT Alkaline Phosphatase Total Creatine Kinase CK-MB (CK-2) Rel Index Troponin T Albumin LDL Cholesterol Direct PTH Intact Salicylates Acetaminophen Crossmatch 04/27/19 04/27/19 04/27/19 00:23 06:34 17:13 WBC RBC Hgb Hct MCV MCH MCHC RDW Plt Count Lymph % (Auto) [place] % (Auto) Eos % (Auto) Baso % (Auto) Lymph # [place] # Eos # Baso # Seg Neutrophils % Seg Neuts % (Manual) Lymphocytes % (Manual) Eosinophils % (Manual) Seg Neutrophils # Lymphocytes # (Manual) Eosinophils # (Manual) PT INR D-Dimer POC ABG pH POC ABG pCO2 POC ABG pO2 ABG pO2 ABG HCO3 ABG Base Excess ABG Hemoglobin Oxyhemoglobin Sodium Potassium Chloride Carbon Dioxide BUN Creatinine Glucose POC Glucose 158 H 140 H 152 H Calcium Phosphorus Magnesium ALT Alkaline Phosphatase Total Creatine Kinase CK-MB (CK-2) Rel Index Troponin T Albumin LDL Cholesterol Direct PTH Intact Salicylates Acetaminophen Crossmatch 04/27/19 04/28/19 04/28/19 23:50 05:18 11:37 WBC RBC Hgb Hct MCV MCH MCHC RDW Plt Count Lymph % (Auto) [place] % (Auto) Eos % (Auto) Baso % (Auto) Lymph # [place] # Eos # Baso # Seg Neutrophils % Seg Neuts % (Manual) Lymphocytes % (Manual) Eosinophils % (Manual) Seg Neutrophils # Lymphocytes # (Manual) Eosinophils # (Manual) PT INR D-Dimer POC ABG pH POC ABG pCO2 POC ABG pO2 ABG pO2 ABG HCO3 ABG Base Excess ABG Hemoglobin Oxyhemoglobin Sodium Potassium Chloride Carbon Dioxide BUN Creatinine Glucose POC Glucose 160 H 145 H 177 H Calcium Phosphorus Magnesium ALT Alkaline Phosphatase Total Creatine Kinase CK-MB (CK-2) Rel Index Troponin T Albumin LDL Cholesterol Direct PTH Intact Salicylates Acetaminophen Crossmatch 04/28/19 04/28/19 04/29/19 18:31 23:47 05:50 WBC RBC Hgb Hct MCV MCH MCHC RDW Plt Count Lymph % (Auto) [place] % (Auto) Eos % (Auto) Baso % (Auto) Lymph # [place] # Eos # Baso # Seg Neutrophils % Seg Neuts % (Manual) Lymphocytes % (Manual) Eosinophils % (Manual) Seg Neutrophils # Lymphocytes # (Manual) Eosinophils # (Manual) PT INR D-Dimer POC ABG pH POC ABG pCO2 POC ABG pO2 ABG pO2 ABG HCO3 ABG Base Excess ABG Hemoglobin Oxyhemoglobin Sodium Potassium Chloride Carbon Dioxide BUN Creatinine Glucose POC Glucose 153 H 117 H 177 H Calcium Phosphorus Magnesium ALT Alkaline Phosphatase Total Creatine Kinase CK-MB (CK-2) Rel Index Troponin T Albumin LDL Cholesterol Direct PTH Intact Salicylates Acetaminophen Crossmatch 04/29/19 04/30/19 04/30/19 17:04 01:02 06:42 WBC RBC Hgb Hct MCV MCH MCHC RDW Plt Count Lymph % (Auto) [place] % (Auto) Eos % (Auto) Baso % (Auto) Lymph # [place] # Eos # Baso # Seg Neutrophils % Seg Neuts % (Manual) Lymphocytes % (Manual) Eosinophils % (Manual) Seg Neutrophils # Lymphocytes # (Manual) Eosinophils # (Manual) PT INR D-Dimer POC ABG pH POC ABG pCO2 POC ABG pO2 ABG pO2 ABG HCO3 ABG Base Excess ABG Hemoglobin Oxyhemoglobin Sodium Potassium Chloride Carbon Dioxide BUN Creatinine Glucose POC Glucose 205 H 143 H 145 H Calcium Phosphorus Magnesium ALT Alkaline Phosphatase Total Creatine Kinase CK-MB (CK-2) Rel Index Troponin T Albumin LDL Cholesterol Direct PTH Intact Salicylates Acetaminophen Crossmatch 04/30/19 04/30/19 04/30/19 11:31 18:12 23:38 WBC RBC Hgb Hct MCV MCH MCHC RDW Plt Count Lymph % (Auto) [place] % (Auto) Eos % (Auto) Baso % (Auto) Lymph # [place] # Eos # Baso # Seg Neutrophils % Seg Neuts % (Manual) Lymphocytes % (Manual) Eosinophils % (Manual) Seg Neutrophils # Lymphocytes # (Manual) Eosinophils # (Manual) PT INR D-Dimer POC ABG pH POC ABG pCO2 POC ABG pO2 ABG pO2 ABG HCO3 ABG Base Excess ABG Hemoglobin Oxyhemoglobin Sodium Potassium Chloride Carbon Dioxide BUN Creatinine Glucose POC Glucose 162 H 117 H 139 H Calcium Phosphorus Magnesium ALT Alkaline Phosphatase Total Creatine Kinase CK-MB (CK-2) Rel Index Troponin T Albumin LDL Cholesterol Direct PTH Intact Salicylates Acetaminophen Crossmatch 05/01/19 05/01/19 05/02/19 06:06 23:41 05:59 WBC RBC Hgb Hct MCV MCH MCHC RDW Plt Count Lymph % (Auto) [place] % (Auto) Eos % (Auto) Baso % (Auto) Lymph # [place] # Eos # Baso # Seg Neutrophils % Seg Neuts % (Manual) Lymphocytes % (Manual) Eosinophils % (Manual) Seg Neutrophils # Lymphocytes # (Manual) Eosinophils # (Manual) PT INR D-Dimer POC ABG pH POC ABG pCO2 POC ABG pO2 ABG pO2 ABG HCO3 ABG Base Excess ABG Hemoglobin Oxyhemoglobin Sodium Potassium Chloride Carbon Dioxide BUN Creatinine Glucose POC Glucose 150 H 140 H 130 H Calcium Phosphorus Magnesium ALT Alkaline Phosphatase Total Creatine Kinase CK-MB (CK-2) Rel Index Troponin T Albumin LDL Cholesterol Direct PTH Intact Salicylates Acetaminophen Crossmatch 05/02/19 05/02/19 05/03/19 11:55 18:10 00:15 WBC RBC Hgb Hct MCV MCH MCHC RDW Plt Count Lymph % (Auto) [place] % (Auto) Eos % (Auto) Baso % (Auto) Lymph # [place] # Eos # Baso # Seg Neutrophils % Seg Neuts % (Manual) Lymphocytes % (Manual) Eosinophils % (Manual) Seg Neutrophils # Lymphocytes # (Manual) Eosinophils # (Manual) PT INR D-Dimer POC ABG pH POC ABG pCO2 POC ABG pO2 ABG pO2 ABG HCO3 ABG Base Excess ABG Hemoglobin Oxyhemoglobin Sodium Potassium Chloride Carbon Dioxide BUN Creatinine Glucose POC Glucose 146 H 141 H 145 H Calcium Phosphorus Magnesium ALT Alkaline Phosphatase Total Creatine Kinase CK-MB (CK-2) Rel Index Troponin T Albumin LDL Cholesterol Direct PTH Intact Salicylates Acetaminophen Crossmatch 05/03/19 05/03/19 05/03/19 05:49 05:49 06:01 WBC RBC 2.84 L Hgb 7.2 L Hct 22.9 L MCV 81 L MCH 26 L MCHC RDW 20.6 H Plt Count 456 H Lymph % (Auto) 11.8 L [place] % (Auto) Eos % (Auto) 10.6 H Baso % (Auto) Lymph # 1.1 L [place] # Eos # 1.0 H Baso # Seg Neutrophils % 70.4 H Seg Neuts % (Manual) Lymphocytes % (Manual) Eosinophils % (Manual) Seg Neutrophils # Lymphocytes # (Manual) Eosinophils # (Manual) PT INR D-Dimer POC ABG pH POC ABG pCO2 POC ABG pO2 ABG pO2 ABG HCO3 ABG Base Excess ABG Hemoglobin Oxyhemoglobin Sodium Potassium Chloride 94.8 L Carbon Dioxide BUN 66 H Creatinine 3.6 H Glucose 129 H POC Glucose 135 H Calcium Phosphorus Magnesium ALT Alkaline Phosphatase Total Creatine Kinase CK-MB (CK-2) Rel Index Troponin T Albumin LDL Cholesterol Direct PTH Intact Salicylates Acetaminophen Crossmatch 05/03/19 05/03/19 05/04/19 11:04 18:40 00:06 WBC RBC Hgb Hct MCV MCH MCHC RDW Plt Count Lymph % (Auto) [place] % (Auto) Eos % (Auto) Baso % (Auto) Lymph # [place] # Eos # Baso # Seg Neutrophils % Seg Neuts % (Manual) Lymphocytes % (Manual) Eosinophils % (Manual) Seg Neutrophils # Lymphocytes # (Manual) Eosinophils # (Manual) PT INR D-Dimer POC ABG pH POC ABG pCO2 POC ABG pO2 ABG pO2 ABG HCO3 ABG Base Excess ABG Hemoglobin Oxyhemoglobin Sodium Potassium Chloride Carbon Dioxide BUN Creatinine Glucose POC Glucose 191 H 167 H 137 H Calcium Phosphorus Magnesium ALT Alkaline Phosphatase Total Creatine Kinase CK-MB (CK-2) Rel Index Troponin T Albumin LDL Cholesterol Direct PTH Intact Salicylates Acetaminophen Crossmatch 05/04/19 05/04/19 05/04/19 06:44 07:30 07:30 WBC 15.8 H RBC 2.74 L Hgb 6.7 L Hct 22.2 L MCV 81 L MCH 24 L MCHC 30 L RDW 20.4 H Plt Count 450 H Lymph % (Auto) 5.1 L [place] % (Auto) Eos % (Auto) Baso % (Auto) Lymph # 0.8 L [place] # Eos # 0.6 H Baso # Seg Neutrophils % 86.3 H Seg Neuts % (Manual) Lymphocytes % (Manual) Eosinophils % (Manual) Seg Neutrophils # 13.6 H Lymphocytes # (Manual) Eosinophils # (Manual) PT INR D-Dimer POC ABG pH POC ABG pCO2 POC ABG pO2 ABG pO2 ABG HCO3 ABG Base Excess ABG Hemoglobin Oxyhemoglobin Sodium Potassium Chloride 95.2 L Carbon Dioxide BUN 92 H Creatinine 4.8 H Glucose 139 H POC Glucose 153 H Calcium Phosphorus Magnesium ALT Alkaline Phosphatase Total Creatine Kinase CK-MB (CK-2) Rel Index Troponin T Albumin LDL Cholesterol Direct PTH Intact Salicylates Acetaminophen Crossmatch 05/04/19 05/04/19 05/05/19 12:55 16:31 01:02 WBC RBC Hgb Hct MCV MCH MCHC RDW Plt Count Lymph % (Auto) [place] % (Auto) Eos % (Auto) Baso % (Auto) Lymph # [place] # Eos # Baso # Seg Neutrophils % Seg Neuts % (Manual) Lymphocytes % (Manual) Eosinophils % (Manual) Seg Neutrophils # Lymphocytes # (Manual) Eosinophils # (Manual) PT INR D-Dimer POC ABG pH POC ABG pCO2 POC ABG pO2 ABG pO2 ABG HCO3 ABG Base Excess ABG Hemoglobin Oxyhemoglobin Sodium Potassium Chloride Carbon Dioxide BUN Creatinine Glucose POC Glucose 169 H 171 H Calcium Phosphorus Magnesium ALT Alkaline Phosphatase Total Creatine Kinase CK-MB (CK-2) Rel Index Troponin T Albumin LDL Cholesterol Direct PTH Intact Salicylates Acetaminophen Crossmatch See Detail 05/05/19 05/05/19 05/05/19 05:26 05:36 11:48 WBC 12.6 H RBC 2.73 L Hgb 6.9 L Hct 22.3 L MCV 82 L MCH 25 L MCHC 31 L RDW 21.0 H Plt Count Lymph % (Auto) 8.9 L [place] % (Auto) Eos % (Auto) Baso % (Auto) Lymph # 1.1 L [place] # 0.9 H Eos # Baso # Seg Neutrophils % 80.7 H Seg Neuts % (Manual) Lymphocytes % (Manual) Eosinophils % (Manual) Seg Neutrophils # 10.2 H Lymphocytes # (Manual) Eosinophils # (Manual) PT INR D-Dimer POC ABG pH POC ABG pCO2 POC ABG pO2 ABG pO2 ABG HCO3 ABG Base Excess ABG Hemoglobin Oxyhemoglobin Sodium Potassium Chloride Carbon Dioxide BUN Creatinine Glucose POC Glucose 153 H 173 H Calcium Phosphorus Magnesium ALT Alkaline Phosphatase Total Creatine Kinase CK-MB (CK-2) Rel Index Troponin T Albumin LDL Cholesterol Direct PTH Intact Salicylates Acetaminophen Crossmatch 05/05/19 05/06/19 05/06/19 16:42 02:24 06:12 WBC RBC Hgb Hct MCV MCH MCHC RDW Plt Count Lymph % (Auto) [place] % (Auto) Eos % (Auto) Baso % (Auto) Lymph # [place] # Eos # Baso # Seg Neutrophils % Seg Neuts % (Manual) Lymphocytes % (Manual) Eosinophils % (Manual) Seg Neutrophils # Lymphocytes # (Manual) Eosinophils # (Manual) PT INR D-Dimer POC ABG pH POC ABG pCO2 POC ABG pO2 ABG pO2 ABG HCO3 ABG Base Excess ABG Hemoglobin Oxyhemoglobin Sodium Potassium Chloride Carbon Dioxide BUN Creatinine Glucose POC Glucose 126 H 138 H 151 H Calcium Phosphorus Magnesium ALT Alkaline Phosphatase Total Creatine Kinase CK-MB (CK-2) Rel Index Troponin T Albumin LDL Cholesterol Direct PTH Intact Salicylates Acetaminophen Crossmatch 05/06/19 05/06/19 05/06/19 08:15 16:48 23:16 WBC 11.8 H RBC 2.72 L Hgb 6.7 L Hct 21.7 L MCV 80 L MCH 25 L MCHC 31 L RDW 20.9 H Plt Count Lymph % (Auto) [place] % (Auto) Eos % (Auto) Baso % (Auto) Lymph # [place] # Eos # Baso # Seg Neutrophils % Seg Neuts % (Manual) Lymphocytes % (Manual) Eosinophils % (Manual) Seg Neutrophils # Lymphocytes # (Manual) Eosinophils # (Manual) PT INR D-Dimer POC ABG pH POC ABG pCO2 POC ABG pO2 ABG pO2 ABG HCO3 ABG Base Excess ABG Hemoglobin Oxyhemoglobin Sodium Potassium Chloride Carbon Dioxide BUN Creatinine Glucose POC Glucose 153 H 143 H Calcium Phosphorus Magnesium ALT Alkaline Phosphatase Total Creatine Kinase CK-MB (CK-2) Rel Index Troponin T Albumin LDL Cholesterol Direct PTH Intact Salicylates Acetaminophen Crossmatch 05/07/19 05/07/19 05/07/19 06:00 06:30 12:33 WBC RBC 3.53 L Hgb 9.1 L Hct 28.6 L D MCV 81 L MCH 26 L MCHC RDW 19.1 H Plt Count Lymph % (Auto) 9.6 L [place] % (Auto) Eos % (Auto) 4.8 H Baso % (Auto) Lymph # 1.1 L [place] # Eos # 0.5 H Baso # Seg Neutrophils % 77.8 H Seg Neuts % (Manual) Lymphocytes % (Manual) Eosinophils % (Manual) Seg Neutrophils # 8.6 H Lymphocytes # (Manual) Eosinophils # (Manual) PT INR D-Dimer POC ABG pH POC ABG pCO2 POC ABG pO2 ABG pO2 ABG HCO3 ABG Base Excess ABG Hemoglobin Oxyhemoglobin Sodium Potassium Chloride Carbon Dioxide BUN Creatinine Glucose POC Glucose 122 H 140 H Calcium Phosphorus Magnesium ALT Alkaline Phosphatase Total Creatine Kinase CK-MB (CK-2) Rel Index Troponin T Albumin LDL Cholesterol Direct PTH Intact Salicylates Acetaminophen Crossmatch 05/07/19 05/07/19 05/08/19 16:41 23:55 05:10 WBC 11.6 H RBC 3.54 L Hgb 9.1 L Hct 29.1 L MCV 82 L MCH 26 L MCHC 31 L RDW 19.6 H Plt Count Lymph % (Auto) 6.6 L [place] % (Auto) Eos % (Auto) Baso % (Auto) 1.9 H Lymph # 0.8 L [place] # Eos # Baso # 0.2 H Seg Neutrophils % 82.6 H Seg Neuts % (Manual) Lymphocytes % (Manual) Eosinophils % (Manual) Seg Neutrophils # 9.6 H Lymphocytes # (Manual) Eosinophils # (Manual) PT INR D-Dimer POC ABG pH POC ABG pCO2 POC ABG pO2 ABG pO2 ABG HCO3 ABG Base Excess ABG Hemoglobin Oxyhemoglobin Sodium Potassium Chloride Carbon Dioxide BUN Creatinine Glucose POC Glucose 143 H 153 H Calcium Phosphorus Magnesium ALT Alkaline Phosphatase Total Creatine Kinase CK-MB (CK-2) Rel Index Troponin T Albumin LDL Cholesterol Direct PTH Intact Salicylates Acetaminophen Crossmatch 05/08/19 05/08/19 05/09/19 06:09 16:55 03:27 WBC RBC Hgb Hct MCV MCH MCHC RDW Plt Count Lymph % (Auto) [place] % (Auto) Eos % (Auto) Baso % (Auto) Lymph # [place] # Eos # Baso # Seg Neutrophils % Seg Neuts % (Manual) Lymphocytes % (Manual) Eosinophils % (Manual) Seg Neutrophils # Lymphocytes # (Manual) Eosinophils # (Manual) PT INR D-Dimer POC ABG pH POC ABG pCO2 POC ABG pO2 ABG pO2 ABG HCO3 ABG Base Excess ABG Hemoglobin Oxyhemoglobin Sodium Potassium Chloride Carbon Dioxide BUN Creatinine Glucose POC Glucose 204 H 196 H 175 H Calcium Phosphorus Magnesium ALT Alkaline Phosphatase Total Creatine Kinase CK-MB (CK-2) Rel Index Troponin T Albumin LDL Cholesterol Direct PTH Intact Salicylates Acetaminophen Crossmatch 05/09/19 05/09/19 05/09/19 06:00 11:00 12:41 WBC 12.0 H RBC Hgb 9.7 L Hct 30.2 L MCV 83 L MCH 26 L MCHC RDW 20.1 H Plt Count Lymph % (Auto) 7.4 L [place] % (Auto) 7.6 H Eos % (Auto) Baso % (Auto) Lymph # 0.9 L [place] # 0.9 H Eos # Baso # Seg Neutrophils % 80.7 H Seg Neuts % (Manual) Lymphocytes % (Manual) Eosinophils % (Manual) Seg Neutrophils # 9.7 H Lymphocytes # (Manual) Eosinophils # (Manual) PT INR D-Dimer POC ABG pH POC ABG pCO2 POC ABG pO2 ABG pO2 ABG HCO3 ABG Base Excess ABG Hemoglobin Oxyhemoglobin Sodium Potassium Chloride Carbon Dioxide BUN Creatinine Glucose POC Glucose 172 H 168 H Calcium Phosphorus Magnesium ALT Alkaline Phosphatase Total Creatine Kinase CK-MB (CK-2) Rel Index Troponin T Albumin LDL Cholesterol Direct PTH Intact Salicylates Acetaminophen Crossmatch
--- NOTE | 2019-05-09 14:55 | Progress Note ---
Assessment and Plan /Acute respiratory failure on mechanical ventilator >96 hrs Likely from pulmonary edema with volume overload from end-stage renal disease a nd underlying CHF Extubated ; history of tracheostomy on T piece Current management , nebulizers, Currently on trach/peg placed on 03/03. Now off vent, cont oxygen supplement, improving, on t piece, nebulizers, pulmonary critical following /-Anemia of chronic disease s/p 5 units of prbc , r/o GI loss - ordered stool for occult blood - negative - monitor h/h /acute on chronic systolic CHF/ Acute pulmonary edema, HD per schedule /Dilated CMP, EF 35-40% Continue diuresis, supportive care /Acute metabolic encephalopathy, resolved, has baseline Dementia. /ESRD on hemodialysis per schedule nephrology following /-Bilateral pleural effusions improved with HD /Permanent atrial fibrillation and flutter and hypercoaguable state Not on anticoagulation because of anemia thrombocytopenia rate control meds optimized /-Diabetes mellitus type 2 Accu-Chek sliding scale coverage Insulin as needed /NSTEMI type 2 , Cardiology following /-Schizophrenia:stable /-Legally blind, supportive care /-hypertension, Monitor BP,'s adjust medications as needed /-Hypokalemia; corrected /-Pulmonary hypertension; continue current management /-Dysphagia s/p PEG tube; PEG tubes per protocol /-Severe malnutrition /hypoalbuminemia with FTT: 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, 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 Brief History: Patient is 63-year-old -[place] male patient from [facility] with multiple co-morbidities including blindness, CVA, CHF, PPM/ICD, loop recorder since 2012 that is MRI compatible, IDDM type 2, sepsis left foot ulcer, afib, ESRD with complications on HD TTS, hypertension, AOCD and GERD who presented to the ED with hypotensive after intubation in the emergency room. diagnosed with fluid overload, pleural effusion. Patient has had recurrent admission in the hospital for similar reason and was recently discharged from the hospital following treatment of Severe Sepsis due to Necrotizing Unstagable sacral decubitus ulcer with ostemomylitis, has rec eived multiple courses of broad spectrum abx. Admitted for Acute hypoxic respiratory failure, status post intubation and ventilatory support, now off vent, on T-piece waiting on placement Hospitalist Physical Patient is on trach and PEG, ON 5L The patient appeared well nourished and normally developed. Vital signs as documented. Head exam is unremarkable. No scleral icterus . Neck is without jugular venous distension, thyromegaly, or carotid bruits. Lungs are clear to auscultation. Cardiac exam reveals regular rate and Rhythm. First and second heart sounds normal. No murmurs, rubs or gallops. Abdominal exam reveals PEG tube in place, colostomy bag in place. Extremities are nonedematous and both femoral and pedal pulses are normal. 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: patient doesn't follow commands Subjective Date of service: 05/09/19 Principal diagnosis: Respiratory failure, acute on chronic systolic HF, ESRD Interval history: Patient seen and examined No acute event overnight Patient remained on trach, no family at bedside Discussed with RN and case management about plan of care and discharge planning Objective - Constitutional Vitals: Vital Signs - 12hr 05/09/19 05/09/19 05/09/19 03:28 08:45 09:12 Temperature 98.5 F 97.9 F Pulse Rate 98 H 97 H Pulse Rate [ Anterior Bilateral Throughout] Respiratory 19 18 Rate Respiratory Rate [Anterior Bilateral Throughout] Blood Pressure 143/69 144/65 O2 Sat by Pulse 100 99 100 Oximetry 05/09/19 05/09/19 05/09/19 09:13 10:00 12:31 Temperature 97.9 F Pulse Rate 88 Pulse Rate [ 96 H Anterior Bilateral Throughout] Respiratory 18 Rate Respiratory 16 Rate [Anterior Bilateral Throughout] Blood Pressure 141/65 O2 Sat by Pulse 99 87 Oximetry - Labs CBC & Chem 7: 05/09/19 11:00 05/10/19 06:45 Labs: Abnormal lab results 05/08/19 05/09/19 05/09/19 Range/Units 16:55 03:27 06:00 WBC (4.5-11.0) K/mm3 Hgb (11.8-15.2) gm/dl Hct (35.5-45.6) % MCV (84-94) fl MCH (28-32) pg RDW (13.2-15.2) % Lymph % (Auto) (13.4-35.0) % [place] % (Auto) (0.0-7.3) % Lymph # (1.2-5.4) K/mm3 [place] # (0.0-0.8) K/mm3 Seg Neutrophils % (40.0-70.0) % Seg Neutrophils # (1.8-7.7) K/mm3 POC Glucose 196 H 175 H 172 H (70-105) 05/09/19 05/09/19 Range/Units 11:00 12:41 WBC 12.0 H (4.5-11.0) K/mm3 Hgb 9.7 L (11.8-15.2) gm/dl Hct 30.2 L (35.5-45.6) % MCV 83 L (84-94) fl MCH 26 L (28-32) pg RDW 20.1 H (13.2-15.2) % Lymph % (Auto) 7.4 L (13.4-35.0) % [place] % (Auto) 7.6 H (0.0-7.3) % Lymph # 0.9 L (1.2-5.4) K/mm3 [place] # 0.9 H (0.0-0.8) K/mm3 Seg Neutrophils % 80.7 H (40.0-70.0) % Seg Neutrophils # 9.7 H (1.8-7.7) K/mm3 POC Glucose 168 H (70-105)
[2019-05-10] MEDS: INSULIN REGULAR, HUMAN 100 UNITS/1 ML SUB-Q SCH ×5 (01:27→17:19)
[2019-05-10 07:31] LABS: Calcium 10.2 mg/dL (8.4-10.2)
[2019-05-10] MEDS: IPRATROPIUM/ALBUTEROL SULFATE 3 ML AMPUL.NEB IH SCH ×3 (08:25→20:08)
[2019-05-10] MEDS: SODIUM HYPOCHLORITE, DAKIN'S 1/2 STRENGTH (0.25%) 473 ML TOPICAL SOLN TP SCH (10:19)
[2019-05-10] MEDS: SERTRALINE 100 MG TAB PO SCH (10:19)
[2019-05-10] MEDS: risperiDONE 1 MG TAB PO SCH (10:19)
[2019-05-10] MEDS: FAMOTIDINE 20 MG TAB PO SCH (10:19)
--- NOTE | 2019-05-10 12:10 | Progress Note ---
Assessment and Plan /Acute respiratory failure on mechanical ventilator >96 hrs Likely from pulmonary edema with volume overload from end-stage renal disease a nd underlying CHF Extubated ; history of tracheostomy on T piece Current management , nebulizers, Currently on trach/peg placed on 03/03. Now off vent, cont oxygen supplement, improving, on t piece, nebulizers, pulmonary critical following /-Anemia of chronic disease s/p 5 units of prbc , r/o GI loss - ordered stool for occult blood - negative - monitor h/h /acute on chronic systolic CHF/ Acute pulmonary edema, HD per schedule /Dilated CMP, EF 35-40% Continue diuresis, supportive care /Acute metabolic encephalopathy, resolved, has baseline Dementia. /ESRD on hemodialysis per schedule nephrology following /-Bilateral pleural effusions improved with HD /Permanent atrial fibrillation and flutter and hypercoaguable state Not on anticoagulation because of anemia thrombocytopenia rate control meds optimized /-Diabetes mellitus type 2 Accu-Chek sliding scale coverage Insulin as needed /NSTEMI type 2 , Cardiology following /-Schizophrenia:stable /-Legally blind, supportive care /-hypertension, Monitor BP,'s adjust medications as needed /-Hypokalemia; corrected /-Pulmonary hypertension; continue current management /-Dysphagia s/p PEG tube; PEG tubes per protocol /-Severe malnutrition /hypoalbuminemia with FTT: 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, 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 family does not want hospice, very poor prognosis due to multiple comorbidity and bedbound condition Brief History: Patient is 63-year-old -[place] male patient from [facility] with multiple co-morbidities including blindness, CVA, CHF, PPM/ICD, loop recorder since 2012 that is MRI compatible, IDDM type 2, sepsis left foot ulcer, afib, ESRD with complications on HD TTS, hypertension, AOCD and GERD who presented to the ED with hypotensive after intubation in the emergency room. diagnosed with fluid overload, pleural effusion. Patient has had recurrent admission in the hospital for similar reason and was recently discharged from the hospital following treatment of Severe Sepsis due to Necrotizing Unstagable sacral decubitus ulcer with ostemomylitis, has rec eived multiple courses of broad spectrum abx. Admitted for Acute hypoxic respiratory failure, status post intubation and ventilatory support, now off vent, on T-piece waiting on placement Hospitalist Physical Patient is on trach and PEG, ON T-piece The patient appeared ill looking and normally developed. Vital signs as documented. Head exam is unremarkable. No scleral icterus . Neck is without jugular venous distension, thyromegaly, or carotid bruits. trach in place Lungs with diffuse rhonchi b/l. Cardiac exam reveals regular rate and Rhythm. First and second heart sounds normal. Abdominal exam reveals PEG tube in place, colostomy bag in place. Extremities are nonedematous. 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 Subjective Date of service: 05/10/19 Principal diagnosis: Respiratory failure, acute on chronic systolic HF, ESRD Interval history: Patient seen and examined No acute event overnight Patient remained on trach, no family at bedside Discussed with RN and case management about plan of care and discharge planning Objective - Constitutional Vitals: Vital Signs - 12hr 05/10/19 05/10/19 05/10/19 03:52 07:33 08:25 Temperature 98.0 F 98.5 F Pulse Rate 106 H Pulse Rate [ Anterior Bilateral Throughout] Pulse Rate [ Apical] Pulse Rate [ Left Dorsalis Pedis] Pulse Rate [ Left Posterior Tibial] Pulse Rate [ Left Radial] Pulse Rate [ Right Dorsalis Pedis] Pulse Rate [ Right Posterior Tibial] Pulse Rate [ Right Radial] Respiratory 18 18 Rate Respiratory Rate [Anterior Bilateral Throughout] Blood Pressure 135/69 147/72 O2 Sat by Pulse 99 99 Oximetry O2 Sat by Pulse Oximetry [ Assessment] 05/10/19 05/10/19 05/10/19 08:26 08:39 10:00 Temperature Pulse Rate 101 H Pulse Rate [ 105 H Anterior Bilateral Throughout] Pulse Rate [ 115 H Apical] Pulse Rate [ 115 H Left Dorsalis Pedis] Pulse Rate [ 115 H Left Posterior Tibial] Pulse Rate [ 115 H Left Radial] Pulse Rate [ 115 H Right Dorsalis Pedis] Pulse Rate [ 115 H Right Posterior Tibial] Pulse Rate [ 115 H Right Radial] Respiratory 23 Rate Respiratory 16 Rate [Anterior Bilateral Throughout] Blood Pressure O2 Sat by Pulse 99 Oximetry O2 Sat by Pulse 96 Oximetry [ Assessment] - Labs CBC & Chem 7: 05/09/19 11:00 05/10/19 06:45 Labs: Abnormal lab results 05/09/19 05/09/19 05/10/19 Range/Units 12:41 17:45 01:26 Sodium (137-145) mmol/L Chloride (98-107) mmol/L BUN (9-20) mg/dL Creatinine (0.8-1.5) mg/dL Glucose (75-100) mg/dL POC Glucose 168 H 167 H 174 H (70-105) 05/10/19 05/10/19 Range/Units 06:07 06:45 Sodium 134 L (137-145) mmol/L Chloride 90.2 L (98-107) mmol/L BUN 82 H (9-20) mg/dL Creatinine 4.1 H (0.8-1.5) mg/dL Glucose 195 H (75-100) mg/dL POC Glucose 179 H (70-105)
--- NOTE | 2019-05-10 14:04 | Progress Note ---
Assessment and Plan - Patient Problems (1) Pulmonary hypertension Current Visit: Yes Status: Acute (2) Dilated cardiomyopathy Current Visit: Yes Status: Acute (3) Encephalopathy Current Visit: Yes Status: Acute (4) ESRD (end stage renal disease) on dialysis Current Visit: Yes Status: Chronic (5) Acute HFrEF (heart failure with reduced ejection fraction) Current Visit: No Status: Acute (6) Altered mental status Current Visit: No Status: Acute Qualifiers: Altered mental status type: unspecified Qualified Code(s): R41.82 - Altered mental status, unspecified (7) Apneic episode Current Visit: No Status: Acute (8) Diabetes mellitus, insulin dependent (IDDM), uncontrolled Current Visit: No Status: Acute (9) Elevated lactic acid level Current Visit: No Status: Acute (10) Pneumothorax Current Visit: Yes Status: Suspected (11) Chronic respiratory failure Current Visit: Yes Status: Acute (12) Tracheostomy in place Current Visit: Yes Status: Acute Subjective Principal diagnosis: Respiratory failure, acute on chronic systolic HF, ESRD Interval history: on capped trach most of the day yesterday. Rested on trach collar overnight Objective Vital Signs - 12hr 05/10/19 05/10/19 05/10/19 03:52 07:33 08:25 Temperature 98.0 F 98.5 F Pulse Rate 106 H Pulse Rate [ Anterior Bilateral Throughout] Pulse Rate [ Apical] Pulse Rate [ Left Dorsalis Pedis] Pulse Rate [ Left Posterior Tibial] Pulse Rate [ Left Radial] Pulse Rate [ Right Dorsalis Pedis] Pulse Rate [ Right Posterior Tibial] Pulse Rate [ Right Radial] Respiratory 18 18 Rate Respiratory Rate [Anterior Bilateral Throughout] Blood Pressure 135/69 147/72 O2 Sat by Pulse 99 99 Oximetry O2 Sat by Pulse Oximetry [ Assessment] 05/10/19 05/10/19 05/10/19 08:26 08:39 10:00 Temperature Pulse Rate 101 H Pulse Rate [ 105 H Anterior Bilateral Throughout] Pulse Rate [ 115 H Apical] Pulse Rate [ 115 H Left Dorsalis Pedis] Pulse Rate [ 115 H Left Posterior Tibial] Pulse Rate [ 115 H Left Radial] Pulse Rate [ 115 H Right Dorsalis Pedis] Pulse Rate [ 115 H Right Posterior Tibial] Pulse Rate [ 115 H Right Radial] Respiratory 23 Rate Respiratory 16 Rate [Anterior Bilateral Throughout] Blood Pressure O2 Sat by Pulse 99 Oximetry O2 Sat by Pulse 96 Oximetry [ Assessment] 05/10/19 05/10/19 12:00 12:21 Temperature 98.0 F Pulse Rate 117 H 116 H Pulse Rate [ Anterior Bilateral Throughout] Pulse Rate [ Apical] Pulse Rate [ Left Dorsalis Pedis] Pulse Rate [ Left Posterior Tibial] Pulse Rate [ Left Radial] Pulse Rate [ Right Dorsalis Pedis] Pulse Rate [ Right Posterior Tibial] Pulse Rate [ Right Radial] Respiratory 18 Rate Respiratory Rate [Anterior Bilateral Throughout] Blood Pressure 137/71 O2 Sat by Pulse 97 Oximetry O2 Sat by Pulse Oximetry [ Assessment] Constitutional: no acute distress, alert Eyes: non-icteric ENT: oropharynx moist Neck: supple Effort: normal Ascultation: Bilateral: diminished breath sounds, other (coarse BS bilaterally) Percussion: Bilateral: not dull Cardiovascular: regular rate and rhythm (no mrg) Gastrointestinal: normoactive bowel sounds, soft, non-tender, non-distended, other (ostomy in place, brown stool) Extremities: no cyanosis, no edema, pink and warm Neurologic: other (mild weakness LUE, o/w nonfocal) Psychiatric: other (unable to assess) CBC and BMP: 05/09/19 11:00 05/10/19 06:45 ABG, PT/INR, D-dimer: ABG POC ABG pH 7.510 (7.35-7.45) H 03/18/19 06:38 ABG pH 7.424 pH Units (7.350-7.450) 03/19/19 04:23 POC ABG pCO2 38.9 (35-45) 03/18/19 06:38 ABG pCO2 48.0 mm Hg 03/19/19 04:23 POC ABG pO2 164 (80-105) H 03/18/19 06:38 ABG pO2 78.3 mm Hg (80.0-90.0) L 03/19/19 04:23 POC ABG HCO3 31.0 (22-26 mml/L) 03/18/19 06:38 POC ABG Total CO2 32 (23-27mmol/L) 03/18/19 06:38 POC ABG O2 Sat 100 03/18/19 06:38 ABG O2 Saturation 97.0 % (95.0-99.0) 03/19/19 04:23 PT/INR, D-dimer PT 16.3 Sec. (12.2-14.9) H 03/01/19 09:39 INR 1.35 (0.87-1.13) H 03/01/19 09:39 D-Dimer 2987.82 ng/mlDDU (0-234) H 02/22/19 05:54 Abnormal lab findings: Abnormal Labs 02/21/19 02/21/19 02/21/19 18:30 18:30 18:30 WBC RBC 3.26 L Hgb 8.8 L Hct 29.0 L MCV MCH 27 L MCHC 30 L RDW 19.1 H Plt Count Lymph % (Auto) 6.1 L Avery % (Auto) Eos % (Auto) Baso % (Auto) Lymph # 0.4 L Avery # Eos # Baso # Seg Neutrophils % 86.2 H Seg Neuts % (Manual) Lymphocytes % (Manual) Eosinophils % (Manual) Seg Neutrophils # Lymphocytes # (Manual) Eosinophils # (Manual) PT INR D-Dimer POC ABG pH POC ABG pCO2 POC ABG pO2 ABG pO2 ABG HCO3 ABG Base Excess ABG Hemoglobin Oxyhemoglobin Sodium 133 L Potassium 3.3 L Chloride 93.1 L Carbon Dioxide 33 H BUN Creatinine Glucose 161 H POC Glucose Calcium Phosphorus Magnesium ALT Alkaline Phosphatase 136 H Total Creatine Kinase 37 L CK-MB (CK-2) Rel Index Troponin T 0.192 H* Albumin 2.4 L LDL Cholesterol Direct 36 L PTH Intact Salicylates Acetaminophen Crossmatch 02/21/19 02/21/19 02/21/19 18:42 20:04 20:04 WBC RBC Hgb Hct MCV MCH MCHC RDW Plt Count Lymph % (Auto) Avery % (Auto) Eos % (Auto) Baso % (Auto) Lymph # Avery # Eos # Baso # Seg Neutrophils % Seg Neuts % (Manual) Lymphocytes % (Manual) Eosinophils % (Manual) Seg Neutrophils # Lymphocytes # (Manual) Eosinophils # (Manual) PT INR D-Dimer POC ABG pH POC ABG pCO2 56.7 H POC ABG pO2 291 H ABG pO2 ABG HCO3 ABG Base Excess ABG Hemoglobin Oxyhemoglobin Sodium Potassium Chloride Carbon Dioxide BUN Creatinine Glucose POC Glucose Calcium Phosphorus Magnesium ALT Alkaline Phosphatase Total Creatine Kinase CK-MB (CK-2) Rel Index Troponin T Albumin LDL Cholesterol Direct PTH Intact Salicylates < 0.3 L Acetaminophen < 5.0 L Crossmatch 02/21/19 02/22/19 02/22/19 22:35 03:42 03:42 WBC RBC 3.20 L Hgb 8.8 L Hct 27.6 L MCV MCH MCHC RDW 18.9 H Plt Count Lymph % (Auto) 7.4 L Avery % (Auto) Eos % (Auto) Baso % (Auto) Lymph # 0.7 L Avery # Eos # Baso # Seg Neutrophils % 84.7 H Seg Neuts % (Manual) Lymphocytes % (Manual) Eosinophils % (Manual) Seg Neutrophils # Lymphocytes # (Manual) Eosinophils # (Manual) PT INR D-Dimer POC ABG pH POC ABG pCO2 POC ABG pO2 ABG pO2 ABG HCO3 ABG Base Excess ABG Hemoglobin Oxyhemoglobin Sodium 134 L Potassium 2.6 L* D Chloride Carbon Dioxide BUN Creatinine Glucose POC Glucose Calcium Phosphorus Magnesium ALT Alkaline Phosphatase Total Creatine Kinase CK-MB (CK-2) Rel Index 5.2 H Troponin T 0.202 H* Albumin LDL Cholesterol Direct PTH Intact Salicylates Acetaminophen Crossmatch 02/22/19 02/22/19 02/22/19 03:42 05:54 09:04 WBC RBC Hgb Hct MCV MCH MCHC RDW Plt Count Lymph % (Auto) Avery % (Auto) Eos % (Auto) Baso % (Auto) Lymph # Avery # Eos # Baso # Seg Neutrophils % Seg Neuts % (Manual) Lymphocytes % (Manual) Eosinophils % (Manual) Seg Neutrophils # Lymphocytes # (Manual) Eosinophils # (Manual) PT INR D-Dimer 2987.82 H POC ABG pH 7.451 H POC ABG pCO2 POC ABG pO2 ABG pO2 ABG HCO3 ABG Base Excess ABG Hemoglobin Oxyhemoglobin Sodium Potassium Chloride Carbon Dioxide BUN Creatinine Glucose POC Glucose Calcium Phosphorus Magnesium ALT Alkaline Phosphatase Total Creatine Kinase CK-MB (CK-2) Rel Index 5.7 H Troponin T 0.193 H* Albumin LDL Cholesterol Direct PTH Intact Salicylates Acetaminophen Crossmatch 02/22/19 02/22/19 02/23/19 10:36 23:56 00:52 WBC RBC Hgb Hct MCV MCH MCHC RDW Plt Count Lymph % (Auto) Avery % (Auto) Eos % (Auto) Baso % (Auto) Lymph # Avery # Eos # Baso # Seg Neutrophils % Seg Neuts % (Manual) Lymphocytes % (Manual) Eosinophils % (Manual) Seg Neutrophils # Lymphocytes # (Manual) Eosinophils # (Manual) PT INR D-Dimer POC ABG pH POC ABG pCO2 POC ABG pO2 ABG pO2 ABG HCO3 ABG Base Excess ABG Hemoglobin Oxyhemoglobin Sodium Potassium 3.1 L Chloride Carbon Dioxide BUN Creatinine Glucose POC Glucose 58 L 111 H Calcium Phosphorus Magnesium ALT Alkaline Phosphatase Total Creatine Kinase CK-MB (CK-2) Rel Index Troponin T Albumin LDL Cholesterol Direct PTH Intact Salicylates Acetaminophen Crossmatch 02/23/19 02/23/19 02/23/19 05:00 06:35 14:26 WBC RBC Hgb Hct MCV MCH MCHC RDW Plt Count Lymph % (Auto) Avery % (Auto) Eos % (Auto) Baso % (Auto) Lymph # Avery # Eos # Baso # Seg Neutrophils % Seg Neuts % (Manual) Lymphocytes % (Manual) Eosinophils % (Manual) Seg Neutrophils # Lymphocytes # (Manual) Eosinophils # (Manual) PT INR D-Dimer POC ABG pH POC ABG pCO2 POC ABG pO2 ABG pO2 ABG HCO3 ABG Base Excess ABG Hemoglobin Oxyhemoglobin Sodium 135 L Potassium 3.1 L Chloride Carbon Dioxide BUN 21 H Creatinine 2.0 H Glucose 57 L POC Glucose 64 L 62 L Calcium Phosphorus Magnesium ALT Alkaline Phosphatase Total Creatine Kinase CK-MB (CK-2) Rel Index Troponin T Albumin LDL Cholesterol Direct PTH Intact Salicylates Acetaminophen Crossmatch 02/24/19 02/24/19 02/24/19 02:11 04:12 04:55 WBC RBC 2.84 L Hgb 7.8 L Hct 24.5 L MCV MCH MCHC RDW 19.5 H Plt Count Lymph % (Auto) Avery % (Auto) Eos % (Auto) Baso % (Auto) Lymph # Avery # Eos # Baso # Seg Neutrophils % Seg Neuts % (Manual) Lymphocytes % (Manual) Eosinophils % (Manual) Seg Neutrophils # Lymphocytes # (Manual) Eosinophils # (Manual) PT INR D-Dimer POC ABG pH 7.511 H POC ABG pCO2 33.9 L POC ABG pO2 62 L ABG pO2 ABG HCO3 ABG Base Excess ABG Hemoglobin Oxyhemoglobin Sodium Potassium Chloride Carbon Dioxide BUN Creatinine Glucose POC Glucose 69 L Calcium Phosphorus Magnesium ALT Alkaline Phosphatase Total Creatine Kinase CK-MB (CK-2) Rel Index Troponin T Albumin LDL Cholesterol Direct PTH Intact Salicylates Acetaminophen Crossmatch 02/24/19 02/24/19 02/25/19 04:55 05:41 04:45 WBC RBC Hgb Hct MCV MCH MCHC RDW Plt Count Lymph % (Auto) Avery % (Auto) Eos % (Auto) Baso % (Auto) Lymph # Avery # Eos # Baso # Seg Neutrophils % Seg Neuts % (Manual) Lymphocytes % (Manual) Eosinophils % (Manual) Seg Neutrophils # Lymphocytes # (Manual) Eosinophils # (Manual) PT INR D-Dimer POC ABG pH 7.466 H POC ABG pCO2 POC ABG pO2 75 L ABG pO2 ABG HCO3 ABG Base Excess ABG Hemoglobin Oxyhemoglobin Sodium Potassium Chloride Carbon Dioxide BUN Creatinine 1.8 H Glucose 73 L POC Glucose 127 H Calcium Phosphorus Magnesium ALT Alkaline Phosphatase Total Creatine Kinase CK-MB (CK-2) Rel Index Troponin T Albumin LDL Cholesterol Direct PTH Intact Salicylates Acetaminophen Crossmatch 02/25/19 02/25/19 02/26/19 16:34 21:33 03:45 WBC RBC 2.96 L Hgb 8.0 L Hct 25.8 L MCV MCH 27 L MCHC 31 L RDW 20.0 H Plt Count Lymph % (Auto) Avery % (Auto) Eos % (Auto) Baso % (Auto) Lymph # Avery # Eos # Baso # Seg Neutrophils % Seg Neuts % (Manual) Lymphocytes % (Manual) Eosinophils % (Manual) Seg Neutrophils # Lymphocytes # (Manual) Eosinophils # (Manual) PT INR D-Dimer POC ABG pH POC ABG pCO2 POC ABG pO2 ABG pO2 ABG HCO3 ABG Base Excess ABG Hemoglobin Oxyhemoglobin Sodium Potassium Chloride Carbon Dioxide BUN Creatinine Glucose POC Glucose 141 H 106 H Calcium Phosphorus Magnesium ALT Alkaline Phosphatase Total Creatine Kinase CK-MB (CK-2) Rel Index Troponin T Albumin LDL Cholesterol Direct PTH Intact Salicylates Acetaminophen Crossmatch 02/26/19 02/26/19 02/26/19 03:45 04:13 07:53 WBC RBC Hgb Hct MCV MCH MCHC RDW Plt Count Lymph % (Auto) Avery % (Auto) Eos % (Auto) Baso % (Auto) Lymph # Avery # Eos # Baso # Seg Neutrophils % Seg Neuts % (Manual) Lymphocytes % (Manual) Eosinophils % (Manual) Seg Neutrophils # Lymphocytes # (Manual) Eosinophils # (Manual) PT INR D-Dimer POC ABG pH 7.470 H POC ABG pCO2 POC ABG pO2 ABG pO2 ABG HCO3 ABG Base Excess ABG Hemoglobin Oxyhemoglobin Sodium Potassium Chloride Carbon Dioxide BUN Creatinine 1.8 H Glucose POC Glucose 110 H Calcium Phosphorus Magnesium ALT Alkaline Phosphatase Total Creatine Kinase CK-MB (CK-2) Rel Index Troponin T Albumin LDL Cholesterol Direct PTH Intact Salicylates Acetaminophen Crossmatch 02/26/19 02/26/19 02/27/19 11:56 17:43 00:12 WBC RBC Hgb Hct MCV MCH MCHC RDW Plt Count Lymph % (Auto) Avery % (Auto) Eos % (Auto) Baso % (Auto) Lymph # Avery # Eos # Baso # Seg Neutrophils % Seg Neuts % (Manual) Lymphocytes % (Manual) Eosinophils % (Manual) Seg Neutrophils # Lymphocytes # (Manual) Eosinophils # (Manual) PT INR D-Dimer POC ABG pH POC ABG pCO2 POC ABG pO2 ABG pO2 ABG HCO3 ABG Base Excess ABG Hemoglobin Oxyhemoglobin Sodium Potassium Chloride Carbon Dioxide BUN Creatinine Glucose POC Glucose 112 H 127 H 127 H Calcium Phosphorus Magnesium ALT Alkaline Phosphatase Total Creatine Kinase CK-MB (CK-2) Rel Index Troponin T Albumin LDL Cholesterol Direct PTH Intact Salicylates Acetaminophen Crossmatch 02/27/19 02/27/19 02/27/19 04:35 13:15 18:02 WBC RBC Hgb Hct MCV MCH MCHC RDW Plt Count Lymph % (Auto) Avery % (Auto) Eos % (Auto) Baso % (Auto) Lymph # Avery # Eos # Baso # Seg Neutrophils % Seg Neuts % (Manual) Lymphocytes % (Manual) Eosinophils % (Manual) Seg Neutrophils # Lymphocytes # (Manual) Eosinophils # (Manual) PT INR D-Dimer POC ABG pH 7.483 H POC ABG pCO2 POC ABG pO2 61 L ABG pO2 ABG HCO3 ABG Base Excess ABG Hemoglobin Oxyhemoglobin Sodium Potassium Chloride Carbon Dioxide BUN Creatinine Glucose POC Glucose 143 H 106 H Calcium Phosphorus Magnesium ALT Alkaline Phosphatase Total Creatine Kinase CK-MB (CK-2) Rel Index Troponin T Albumin LDL Cholesterol Direct PTH Intact Salicylates Acetaminophen Crossmatch 02/28/19 02/28/19 02/28/19 05:50 11:59 17:52 WBC RBC Hgb Hct MCV MCH MCHC RDW Plt Count Lymph % (Auto) Avery % (Auto) Eos % (Auto) Baso % (Auto) Lymph # Avery # Eos # Baso # Seg Neutrophils % Seg Neuts % (Manual) Lymphocytes % (Manual) Eosinophils % (Manual) Seg Neutrophils # Lymphocytes # (Manual) Eosinophils # (Manual) PT INR D-Dimer POC ABG pH POC ABG pCO2 POC ABG pO2 ABG pO2 ABG HCO3 ABG Base Excess ABG Hemoglobin Oxyhemoglobin Sodium Potassium Chloride Carbon Dioxide BUN Creatinine Glucose POC Glucose 134 H 128 H 142 H Calcium Phosphorus Magnesium ALT Alkaline Phosphatase Total Creatine Kinase CK-MB (CK-2) Rel Index Troponin T Albumin LDL Cholesterol Direct PTH Intact Salicylates Acetaminophen Crossmatch 02/28/19 03/01/19 03/01/19 23:13 05:40 09:39 WBC RBC Hgb Hct MCV MCH MCHC RDW Plt Count Lymph % (Auto) Avery % (Auto) Eos % (Auto) Baso % (Auto) Lymph # Avery # Eos # Baso # Seg Neutrophils % Seg Neuts % (Manual) Lymphocytes % (Manual) Eosinophils % (Manual) Seg Neutrophils # Lymphocytes # (Manual) Eosinophils # (Manual) PT 16.3 H INR 1.35 H D-Dimer POC ABG pH POC ABG pCO2 POC ABG pO2 ABG pO2 ABG HCO3 ABG Base Excess ABG Hemoglobin Oxyhemoglobin Sodium Potassium Chloride Carbon Dioxide BUN Creatinine Glucose POC Glucose 112 H 111 H Calcium Phosphorus Magnesium ALT Alkaline Phosphatase Total Creatine Kinase CK-MB (CK-2) Rel Index Troponin T Albumin LDL Cholesterol Direct PTH Intact Salicylates Acetaminophen Crossmatch 03/01/19 03/01/19 03/01/19 11:56 13:54 17:59 WBC RBC Hgb Hct MCV MCH MCHC RDW Plt Count Lymph % (Auto) Avery % (Auto) Eos % (Auto) Baso % (Auto) Lymph # Avery # Eos # Baso # Seg Neutrophils % Seg Neuts % (Manual) Lymphocytes % (Manual) Eosinophils % (Manual) Seg Neutrophils # Lymphocytes # (Manual) Eosinophils # (Manual) PT INR D-Dimer POC ABG pH POC ABG pCO2 POC ABG pO2 ABG pO2 ABG HCO3 ABG Base Excess ABG Hemoglobin Oxyhemoglobin Sodium Potassium Chloride Carbon Dioxide BUN 33 H Creatinine 2.8 H D Glucose 176 H POC Glucose 199 H 147 H Calcium Phosphorus Magnesium ALT Alkaline Phosphatase Total Creatine Kinase CK-MB (CK-2) Rel Index Troponin T Albumin LDL Cholesterol Direct PTH Intact Salicylates Acetaminophen Crossmatch 03/02/19 03/02/19 03/02/19 05:15 05:15 05:15 WBC RBC 2.73 L Hgb 7.4 L Hct 23.0 L MCV MCH 27 L MCHC RDW 19.9 H Plt Count Lymph % (Auto) Avery % (Auto) 7.9 H Eos % (Auto) 7.6 H Baso % (Auto) Lymph # 1.0 L Avery # Eos # 0.5 H Baso # Seg Neutrophils % Seg Neuts % (Manual) Lymphocytes % (Manual) Eosinophils % (Manual) Seg Neutrophils # Lymphocytes # (Manual) Eosinophils # (Manual) PT INR D-Dimer POC ABG pH POC ABG pCO2 POC ABG pO2 ABG pO2 ABG HCO3 ABG Base Excess ABG Hemoglobin Oxyhemoglobin Sodium Potassium Chloride Carbon Dioxide BUN 43 H Creatinine 3.2 H Glucose POC Glucose Calcium Phosphorus 2.30 L Magnesium ALT Alkaline Phosphatase Total Creatine Kinase CK-MB (CK-2) Rel Index Troponin T Albumin LDL Cholesterol Direct PTH Intact 267.6 H Salicylates Acetaminophen Crossmatch 03/02/19 03/02/19 03/03/19 12:32 18:20 13:30 WBC RBC Hgb Hct MCV MCH MCHC RDW Plt Count Lymph % (Auto) Avery % (Auto) Eos % (Auto) Baso % (Auto) Lymph # Avery # Eos # Baso # Seg Neutrophils % Seg Neuts % (Manual) Lymphocytes % (Manual) Eosinophils % (Manual) Seg Neutrophils # Lymphocytes # (Manual) Eosinophils # (Manual) PT INR D-Dimer POC ABG pH POC ABG pCO2 POC ABG pO2 ABG pO2 ABG HCO3 ABG Base Excess ABG Hemoglobin Oxyhemoglobin Sodium Potassium Chloride 97.3 L Carbon Dioxide BUN 26 H Creatinine 2.2 H Glucose 73 L POC Glucose 111 H 156 H Calcium Phosphorus Magnesium ALT Alkaline Phosphatase Total Creatine Kinase CK-MB (CK-2) Rel Index Troponin T Albumin LDL Cholesterol Direct PTH Intact Salicylates Acetaminophen Crossmatch 03/04/19 03/04/19 03/04/19 00:02 05:37 05:40 WBC RBC 2.63 L Hgb 7.2 L Hct 22.2 L MCV MCH MCHC RDW 20.2 H Plt Count Lymph % (Auto) 10.5 L Avery % (Auto) Eos % (Auto) 4.6 H Baso % (Auto) Lymph # 0.7 L Avery # Eos # Baso # Seg Neutrophils % 76.9 H Seg Neuts % (Manual) Lymphocytes % (Manual) Eosinophils % (Manual) Seg Neutrophils # Lymphocytes # (Manual) Eosinophils # (Manual) PT INR D-Dimer POC ABG pH POC ABG pCO2 POC ABG pO2 ABG pO2 ABG HCO3 ABG Base Excess ABG Hemoglobin Oxyhemoglobin Sodium Potassium Chloride Carbon Dioxide BUN Creatinine Glucose POC Glucose 136 H 123 H Calcium Phosphorus Magnesium ALT Alkaline Phosphatase Total Creatine Kinase CK-MB (CK-2) Rel Index Troponin T Albumin LDL Cholesterol Direct PTH Intact Salicylates Acetaminophen Crossmatch 03/04/19 03/04/19 03/04/19 05:40 11:39 23:20 WBC RBC Hgb Hct MCV MCH MCHC RDW Plt Count Lymph % (Auto) Avery % (Auto) Eos % (Auto) Baso % (Auto) Lymph # Avery # Eos # Baso # Seg Neutrophils % Seg Neuts % (Manual) Lymphocytes % (Manual) Eosinophils % (Manual) Seg Neutrophils # Lymphocytes # (Manual) Eosinophils # (Manual) PT INR D-Dimer POC ABG pH POC ABG pCO2 POC ABG pO2 ABG pO2 ABG HCO3 ABG Base Excess ABG Hemoglobin Oxyhemoglobin Sodium Potassium Chloride Carbon Dioxide BUN 34 H Creatinine 2.7 H Glucose 114 H POC Glucose 175 H 151 H Calcium Phosphorus Magnesium ALT Alkaline Phosphatase Total Creatine Kinase CK-MB (CK-2) Rel Index Troponin T Albumin LDL Cholesterol Direct PTH Intact Salicylates Acetaminophen Crossmatch 03/05/19 03/05/19 03/05/19 05:37 12:08 17:11 WBC RBC Hgb Hct MCV MCH MCHC RDW Plt Count Lymph % (Auto) Avery % (Auto) Eos % (Auto) Baso % (Auto) Lymph # Avery # Eos # Baso # Seg Neutrophils % Seg Neuts % (Manual) Lymphocytes % (Manual) Eosinophils % (Manual) Seg Neutrophils # Lymphocytes # (Manual) Eosinophils # (Manual) PT INR D-Dimer POC ABG pH POC ABG pCO2 POC ABG pO2 ABG pO2 ABG HCO3 ABG Base Excess ABG Hemoglobin Oxyhemoglobin Sodium Potassium Chloride Carbon Dioxide BUN Creatinine Glucose POC Glucose 134 H 135 H 135 H Calcium Phosphorus Magnesium ALT Alkaline Phosphatase Total Creatine Kinase CK-MB (CK-2) Rel Index Troponin T Albumin LDL Cholesterol Direct PTH Intact Salicylates Acetaminophen Crossmatch 03/06/19 03/06/19 03/06/19 00:16 13:05 18:09 WBC RBC Hgb Hct MCV MCH MCHC RDW Plt Count Lymph % (Auto) Avery % (Auto) Eos % (Auto) Baso % (Auto) Lymph # Avery # Eos # Baso # Seg Neutrophils % Seg Neuts % (Manual) Lymphocytes % (Manual) Eosinophils % (Manual) Seg Neutrophils # Lymphocytes # (Manual) Eosinophils # (Manual) PT INR D-Dimer POC ABG pH POC ABG pCO2 POC ABG pO2 ABG pO2 ABG HCO3 ABG Base Excess ABG Hemoglobin Oxyhemoglobin Sodium Potassium Chloride Carbon Dioxide BUN Creatinine Glucose POC Glucose 117 H 113 H 131 H Calcium Phosphorus Magnesium ALT Alkaline Phosphatase Total Creatine Kinase CK-MB (CK-2) Rel Index Troponin T Albumin LDL Cholesterol Direct PTH Intact Salicylates Acetaminophen Crossmatch 03/07/19 03/08/19 03/08/19 05:25 05:33 16:00 WBC RBC 2.44 L Hgb 6.6 L Hct 20.8 L MCV MCH 27 L MCHC RDW 19.2 H Plt Count Lymph % (Auto) Avery % (Auto) Eos % (Auto) 8.6 H Baso % (Auto) Lymph # 0.8 L Avery # Eos # 0.5 H Baso # Seg Neutrophils % 70.7 H Seg Neuts % (Manual) Lymphocytes % (Manual) Eosinophils % (Manual) Seg Neutrophils # Lymphocytes # (Manual) Eosinophils # (Manual) PT INR D-Dimer POC ABG pH POC ABG pCO2 POC ABG pO2 ABG pO2 ABG HCO3 ABG Base Excess ABG Hemoglobin Oxyhemoglobin Sodium Potassium Chloride Carbon Dioxide BUN Creatinine Glucose POC Glucose 106 H 108 H Calcium Phosphorus Magnesium ALT Alkaline Phosphatase Total Creatine Kinase CK-MB (CK-2) Rel Index Troponin T Albumin LDL Cholesterol Direct PTH Intact Salicylates Acetaminophen Crossmatch 03/08/19 03/08/19 03/08/19 16:00 18:38 Unknown WBC RBC Hgb Hct MCV MCH MCHC RDW Plt Count Lymph % (Auto) Avery % (Auto) Eos % (Auto) Baso % (Auto) Lymph # Avery # Eos # Baso # Seg Neutrophils % Seg Neuts % (Manual) Lymphocytes % (Manual) Eosinophils % (Manual) Seg Neutrophils # Lymphocytes # (Manual) Eosinophils # (Manual) PT INR D-Dimer POC ABG pH POC ABG pCO2 POC ABG pO2 ABG pO2 ABG HCO3 ABG Base Excess ABG Hemoglobin Oxyhemoglobin Sodium Potassium 5.4 H D Chloride Carbon Dioxide BUN 47 H Creatinine 2.6 H Glucose POC Glucose 123 H Calcium Phosphorus Magnesium ALT < 5 L Alkaline Phosphatase Total Creatine Kinase CK-MB (CK-2) Rel Index Troponin T Albumin 2.2 L LDL Cholesterol Direct PTH Intact Salicylates Acetaminophen Crossmatch See Detail 03/09/19 03/09/19 03/09/19 10:48 12:28 13:53 WBC RBC 2.85 L Hgb 7.7 L Hct 24.2 L MCV MCH 27 L MCHC RDW 18.7 H Plt Count Lymph % (Auto) Avery % (Auto) Eos % (Auto) Baso % (Auto) Lymph # Avery # Eos # Baso # Seg Neutrophils % Seg Neuts % (Manual) Lymphocytes % (Manual) Eosinophils % (Manual) Seg Neutrophils # Lymphocytes # (Manual) Eosinophils # (Manual) PT INR D-Dimer POC ABG pH POC ABG pCO2 POC ABG pO2 ABG pO2 ABG HCO3 30.5 H ABG Base Excess 5.6 H ABG Hemoglobin 8.1 L Oxyhemoglobin 93.8 L Sodium Potassium Chloride Carbon Dioxide BUN Creatinine Glucose POC Glucose 114 H Calcium Phosphorus Magnesium ALT Alkaline Phosphatase Total Creatine Kinase CK-MB (CK-2) Rel Index Troponin T Albumin LDL Cholesterol Direct PTH Intact Salicylates Acetaminophen Crossmatch 03/09/19 03/09/19 03/10/19 17:58 23:53 12:01 WBC RBC Hgb Hct MCV MCH MCHC RDW Plt Count Lymph % (Auto) Avery % (Auto) Eos % (Auto) Baso % (Auto) Lymph # Avery # Eos # Baso # Seg Neutrophils % Seg Neuts % (Manual) Lymphocytes % (Manual) Eosinophils % (Manual) Seg Neutrophils # Lymphocytes # (Manual) Eosinophils # (Manual) PT INR D-Dimer POC ABG pH POC ABG pCO2 POC ABG pO2 ABG pO2 ABG HCO3 ABG Base Excess ABG Hemoglobin Oxyhemoglobin Sodium Potassium Chloride Carbon Dioxide BUN Creatinine Glucose POC Glucose 108 H 128 H 144 H Calcium Phosphorus Magnesium ALT Alkaline Phosphatase Total Creatine Kinase CK-MB (CK-2) Rel Index Troponin T Albumin LDL Cholesterol Direct PTH Intact Salicylates Acetaminophen Crossmatch 03/10/19 03/11/19 03/11/19 16:50 00:24 05:02 WBC RBC Hgb Hct MCV MCH MCHC RDW Plt Count Lymph % (Auto) Avery % (Auto) Eos % (Auto) Baso % (Auto) Lymph # Avery # Eos # Baso # Seg Neutrophils % Seg Neuts % (Manual) Lymphocytes % (Manual) Eosinophils % (Manual) Seg Neutrophils # Lymphocytes # (Manual) Eosinophils # (Manual) PT INR D-Dimer POC ABG pH POC ABG pCO2 POC ABG pO2 ABG pO2 ABG HCO3 ABG Base Excess ABG Hemoglobin Oxyhemoglobin Sodium Potassium Chloride Carbon Dioxide BUN Creatinine Glucose POC Glucose 147 H 123 H 120 H Calcium Phosphorus Magnesium ALT Alkaline Phosphatase Total Creatine Kinase CK-MB (CK-2) Rel Index Troponin T Albumin LDL Cholesterol Direct PTH Intact Salicylates Acetaminophen Crossmatch 03/11/19 03/11/19 03/11/19 11:56 12:20 18:37 WBC RBC Hgb Hct MCV MCH MCHC RDW Plt Count Lymph % (Auto) Avery % (Auto) Eos % (Auto) Baso % (Auto) Lymph # Avery # Eos # Baso # Seg Neutrophils % Seg Neuts % (Manual) Lymphocytes % (Manual) Eosinophils % (Manual) Seg Neutrophils # Lymphocytes # (Manual) Eosinophils # (Manual) PT INR D-Dimer POC ABG pH POC ABG pCO2 POC ABG pO2 ABG pO2 ABG HCO3 ABG Base Excess ABG Hemoglobin Oxyhemoglobin Sodium Potassium 5.2 H Chloride Carbon Dioxide BUN Creatinine Glucose POC Glucose 123 H 125 H Calcium Phosphorus Magnesium ALT Alkaline Phosphatase Total Creatine Kinase CK-MB (CK-2) Rel Index Troponin T Albumin LDL Cholesterol Direct PTH Intact Salicylates Acetaminophen Crossmatch 03/11/19 03/12/19 03/12/19 22:52 12:04 18:25 WBC RBC Hgb Hct MCV MCH MCHC RDW Plt Count Lymph % (Auto) Avery % (Auto) Eos % (Auto) Baso % (Auto) Lymph # Avery # Eos # Baso # Seg Neutrophils % Seg Neuts % (Manual) Lymphocytes % (Manual) Eosinophils % (Manual) Seg Neutrophils # Lymphocytes # (Manual) Eosinophils # (Manual) PT INR D-Dimer POC ABG pH POC ABG pCO2 POC ABG pO2 ABG pO2 ABG HCO3 ABG Base Excess ABG Hemoglobin Oxyhemoglobin Sodium Potassium Chloride Carbon Dioxide BUN Creatinine Glucose POC Glucose 110 H 106 H 118 H Calcium Phosphorus Magnesium ALT Alkaline Phosphatase Total Creatine Kinase CK-MB (CK-2) Rel Index Troponin T Albumin LDL Cholesterol Direct PTH Intact Salicylates Acetaminophen Crossmatch 03/12/19 03/13/19 03/13/19 23:36 04:38 04:38 WBC RBC 2.95 L Hgb 7.9 L Hct 24.9 L MCV MCH 27 L MCHC RDW 19.9 H Plt Count Lymph % (Auto) 11.1 L Avery % (Auto) 8.1 H Eos % (Auto) 4.4 H Baso % (Auto) Lymph # 0.9 L Avery # Eos # Baso # Seg Neutrophils % 75.4 H Seg Neuts % (Manual) Lymphocytes % (Manual) Eosinophils % (Manual) Seg Neutrophils # Lymphocytes # (Manual) Eosinophils # (Manual) PT INR D-Dimer POC ABG pH POC ABG pCO2 POC ABG pO2 ABG pO2 ABG HCO3 ABG Base Excess ABG Hemoglobin Oxyhemoglobin Sodium 136 L Potassium 5.1 H Chloride 93.8 L Carbon Dioxide BUN 48 H Creatinine 2.7 H Glucose 102 H POC Glucose 115 H Calcium Phosphorus Magnesium ALT < 5 L Alkaline Phosphatase 143 H Total Creatine Kinase CK-MB (CK-2) Rel Index Troponin T Albumin 2.5 L LDL Cholesterol Direct PTH Intact Salicylates Acetaminophen Crossmatch 03/13/19 03/13/19 03/13/19 05:33 13:37 18:03 WBC RBC Hgb Hct MCV MCH MCHC RDW Plt Count Lymph % (Auto) Avery % (Auto) Eos % (Auto) Baso % (Auto) Lymph # Avery # Eos # Baso # Seg Neutrophils % Seg Neuts % (Manual) Lymphocytes % (Manual) Eosinophils % (Manual) Seg Neutrophils # Lymphocytes # (Manual) Eosinophils # (Manual) PT INR D-Dimer POC ABG pH POC ABG pCO2 POC ABG pO2 ABG pO2 ABG HCO3 ABG Base Excess ABG Hemoglobin Oxyhemoglobin Sodium Potassium Chloride Carbon Dioxide BUN Creatinine Glucose POC Glucose 140 H 150 H 158 H Calcium Phosphorus Magnesium ALT Alkaline Phosphatase Total Creatine Kinase CK-MB (CK-2) Rel Index Troponin T Albumin LDL Cholesterol Direct PTH Intact Salicylates Acetaminophen Crossmatch 08/03/14/19 03/14/19 23:32 05:24 12:20 WBC RBC Hgb Hct MCV MCH MCHC RDW Plt Count Lymph % (Auto) Avery % (Auto) Eos % (Auto) Baso % (Auto) Lymph # Avery # Eos # Baso # Seg Neutrophils % Seg Neuts % (Manual) Lymphocytes % (Manual) Eosinophils % (Manual) Seg Neutrophils # Lymphocytes # (Manual) Eosinophils # (Manual) PT INR D-Dimer POC ABG pH POC ABG pCO2 POC ABG pO2 ABG pO2 ABG HCO3 ABG Base Excess ABG Hemoglobin Oxyhemoglobin Sodium Potassium Chloride Carbon Dioxide BUN Creatinine Glucose POC Glucose 162 H 146 H 127 H Calcium Phosphorus Magnesium ALT Alkaline Phosphatase Total Creatine Kinase CK-MB (CK-2) Rel Index Troponin T Albumin LDL Cholesterol Direct PTH Intact Salicylates Acetaminophen Crossmatch 03/14/19 03/14/19 03/15/19 18:05 23:57 04:38 WBC 12.8 H RBC 3.11 L Hgb 8.1 L Hct 26.5 L MCV MCH 26 L MCHC 31 L RDW 19.7 H Plt Count Lymph % (Auto) 4.4 L Avery % (Auto) 7.4 H Eos % (Auto) Baso % (Auto) Lymph # 0.6 L Avery # 0.9 H Eos # Baso # Seg Neutrophils % 87.3 H Seg Neuts % (Manual) Lymphocytes % (Manual) Eosinophils % (Manual) Seg Neutrophils # 11.2 H Lymphocytes # (Manual) Eosinophils # (Manual) PT INR D-Dimer POC ABG pH POC ABG pCO2 POC ABG pO2 ABG pO2 ABG HCO3 ABG Base Excess ABG Hemoglobin Oxyhemoglobin Sodium Potassium Chloride Carbon Dioxide BUN Creatinine Glucose POC Glucose 142 H 155 H Calcium Phosphorus Magnesium ALT Alkaline Phosphatase Total Creatine Kinase CK-MB (CK-2) Rel Index Troponin T Albumin LDL Cholesterol Direct PTH Intact Salicylates Acetaminophen Crossmatch 03/15/19 03/15/19 03/15/19 04:38 05:31 11:32 WBC RBC Hgb Hct MCV MCH MCHC RDW Plt Count Lymph % (Auto) Avery % (Auto) Eos % (Auto) Baso % (Auto) Lymph # Avery # Eos # Baso # Seg Neutrophils % Seg Neuts % (Manual) Lymphocytes % (Manual) Eosinophils % (Manual) Seg Neutrophils # Lymphocytes # (Manual) Eosinophils # (Manual) PT INR D-Dimer POC ABG pH POC ABG pCO2 POC ABG pO2 ABG pO2 ABG HCO3 ABG Base Excess ABG Hemoglobin Oxyhemoglobin Sodium 135 L Potassium Chloride 91.9 L Carbon Dioxide BUN 54 H Creatinine 2.8 H Glucose 128 H POC Glucose 160 H 109 H Calcium 11.1 H Phosphorus Magnesium ALT Alkaline Phosphatase 161 H Total Creatine Kinase CK-MB (CK-2) Rel Index Troponin T Albumin 2.3 L LDL Cholesterol Direct PTH Intact Salicylates Acetaminophen Crossmatch 03/15/19 03/15/19 03/16/19 18:15 23:41 05:40 WBC RBC Hgb Hct MCV MCH MCHC RDW Plt Count Lymph % (Auto) Avery % (Auto) Eos % (Auto) Baso % (Auto) Lymph # Avery # Eos # Baso # Seg Neutrophils % Seg Neuts % (Manual) Lymphocytes % (Manual) Eosinophils % (Manual) Seg Neutrophils # Lymphocytes # (Manual) Eosinophils # (Manual) PT INR D-Dimer POC ABG pH POC ABG pCO2 POC ABG pO2 ABG pO2 ABG HCO3 ABG Base Excess ABG Hemoglobin Oxyhemoglobin Sodium Potassium Chloride Carbon Dioxide BUN Creatinine Glucose POC Glucose 151 H 110 H 163 H Calcium Phosphorus Magnesium ALT Alkaline Phosphatase Total Creatine Kinase CK-MB (CK-2) Rel Index Troponin T Albumin LDL Cholesterol Direct PTH Intact Salicylates Acetaminophen Crossmatch 03/16/19 03/16/19 03/16/19 11:55 17:04 23:58 WBC RBC Hgb Hct MCV MCH MCHC RDW Plt Count Lymph % (Auto) Avery % (Auto) Eos % (Auto) Baso % (Auto) Lymph # Avery # Eos # Baso # Seg Neutrophils % Seg Neuts % (Manual) Lymphocytes % (Manual) Eosinophils % (Manual) Seg Neutrophils # Lymphocytes # (Manual) Eosinophils # (Manual) PT INR D-Dimer POC ABG pH POC ABG pCO2 POC ABG pO2 ABG pO2 ABG HCO3 ABG Base Excess ABG Hemoglobin Oxyhemoglobin Sodium Potassium Chloride Carbon Dioxide BUN Creatinine Glucose POC Glucose 114 H 147 H 192 H Calcium Phosphorus Magnesium ALT Alkaline Phosphatase Total Creatine Kinase CK-MB (CK-2) Rel Index Troponin T Albumin LDL Cholesterol Direct PTH Intact Salicylates Acetaminophen Crossmatch 03/17/19 03/17/19 03/17/19 05:53 11:17 17:01 WBC RBC Hgb Hct MCV MCH MCHC RDW Plt Count Lymph % (Auto) Avery % (Auto) Eos % (Auto) Baso % (Auto) Lymph # Avery # Eos # Baso # Seg Neutrophils % Seg Neuts % (Manual) Lymphocytes % (Manual) Eosinophils % (Manual) Seg Neutrophils # Lymphocytes # (Manual) Eosinophils # (Manual) PT INR D-Dimer POC ABG pH POC ABG pCO2 POC ABG pO2 ABG pO2 ABG HCO3 ABG Base Excess ABG Hemoglobin Oxyhemoglobin Sodium Potassium Chloride Carbon Dioxide BUN Creatinine Glucose POC Glucose 151 H 161 H 152 H Calcium Phosphorus Magnesium ALT Alkaline Phosphatase Total Creatine Kinase CK-MB (CK-2) Rel Index Troponin T Albumin LDL Cholesterol Direct PTH Intact Salicylates Acetaminophen Crossmatch 03/17/19 03/18/19 03/18/19 21:47 04:15 04:44 WBC RBC Hgb Hct MCV MCH MCHC RDW Plt Count Lymph % (Auto) Avery % (Auto) Eos % (Auto) Baso % (Auto) Lymph # Avery # Eos # Baso # Seg Neutrophils % Seg Neuts % (Manual) Lymphocytes % (Manual) Eosinophils % (Manual) Seg Neutrophils # Lymphocytes # (Manual) Eosinophils # (Manual) PT INR D-Dimer POC ABG pH POC ABG pCO2 POC ABG pO2 ABG pO2 102.8 H ABG HCO3 28.3 H ABG Base Excess ABG Hemoglobin 10.4 L Oxyhemoglobin 94.5 L Sodium Potassium Chloride Carbon Dioxide BUN Creatinine Glucose POC Glucose 170 H 150 H Calcium Phosphorus Magnesium ALT Alkaline Phosphatase Total Creatine Kinase CK-MB (CK-2) Rel Index Troponin T Albumin LDL Cholesterol Direct PTH Intact Salicylates Acetaminophen Crossmatch 03/18/19 03/18/19 03/18/19 06:38 12:12 17:47 WBC RBC Hgb Hct MCV MCH MCHC RDW Plt Count Lymph % (Auto) Avery % (Auto) Eos % (Auto) Baso % (Auto) Lymph # Avery # Eos # Baso # Seg Neutrophils % Seg Neuts % (Manual) Lymphocytes % (Manual) Eosinophils % (Manual) Seg Neutrophils # Lymphocytes # (Manual) Eosinophils # (Manual) PT INR D-Dimer POC ABG pH 7.510 H POC ABG pCO2 POC ABG pO2 164 H ABG pO2 ABG HCO3 ABG Base Excess ABG Hemoglobin Oxyhemoglobin Sodium Potassium Chloride Carbon Dioxide BUN Creatinine Glucose POC Glucose 145 H 149 H Calcium Phosphorus Magnesium ALT Alkaline Phosphatase Total Creatine Kinase CK-MB (CK-2) Rel Index Troponin T Albumin LDL Cholesterol Direct PTH Intact Salicylates Acetaminophen Crossmatch 03/18/19 03/19/19 03/19/19 23:25 01:11 04:23 WBC 15.6 H RBC 2.51 L Hgb 6.5 L Hct 21.6 L MCV MCH 26 L MCHC 30 L RDW 19.8 H Plt Count Lymph % (Auto) 6.0 L Avery % (Auto) Eos % (Auto) Baso % (Auto) Lymph # 0.9 L Avery # 1.0 H Eos # Baso # Seg Neutrophils % 85.5 H Seg Neuts % (Manual) Lymphocytes % (Manual) Eosinophils % (Manual) Seg Neutrophils # 13.4 H Lymphocytes # (Manual) Eosinophils # (Manual) PT INR D-Dimer POC ABG pH POC ABG pCO2 POC ABG pO2 ABG pO2 78.3 L ABG HCO3 30.7 H ABG Base Excess 5.8 H ABG Hemoglobin 5.8 L Oxyhemoglobin 94.6 L Sodium Potassium Chloride Carbon Dioxide BUN Creatinine Glucose POC Glucose 190 H Calcium Phosphorus Magnesium ALT Alkaline Phosphatase Total Creatine Kinase CK-MB (CK-2) Rel Index Troponin T Albumin LDL Cholesterol Direct PTH Intact Salicylates Acetaminophen Crossmatch 03/19/19 03/19/19 03/19/19 05:22 05:35 08:54 WBC RBC Hgb Hct MCV MCH MCHC RDW Plt Count Lymph % (Auto) Avery % (Auto) Eos % (Auto) Baso % (Auto) Lymph # Avery # Eos # Baso # Seg Neutrophils % Seg Neuts % (Manual) Lymphocytes % (Manual) Eosinophils % (Manual) Seg Neutrophils # Lymphocytes # (Manual) Eosinophils # (Manual) PT INR D-Dimer POC ABG pH POC ABG pCO2 POC ABG pO2 ABG pO2 ABG HCO3 ABG Base Excess ABG Hemoglobin Oxyhemoglobin Sodium Potassium Chloride Carbon Dioxide BUN Creatinine Glucose POC Glucose 167 H Calcium Phosphorus Magnesium ALT Alkaline Phosphatase Total Creatine Kinase CK-MB (CK-2) Rel Index Troponin T Albumin LDL Cholesterol Direct PTH Intact Salicylates Acetaminophen Crossmatch See Detail See Detail 03/19/19 03/19/19 03/19/19 12:36 17:02 23:25 WBC RBC Hgb Hct MCV MCH MCHC RDW Plt Count Lymph % (Auto) Avery % (Auto) Eos % (Auto) Baso % (Auto) Lymph # Avery # Eos # Baso # Seg Neutrophils % Seg Neuts % (Manual) Lymphocytes % (Manual) Eosinophils % (Manual) Seg Neutrophils # Lymphocytes # (Manual) Eosinophils # (Manual) PT INR D-Dimer POC ABG pH POC ABG pCO2 POC ABG pO2 ABG pO2 ABG HCO3 ABG Base Excess ABG Hemoglobin Oxyhemoglobin Sodium Potassium Chloride Carbon Dioxide BUN Creatinine Glucose POC Glucose 167 H 135 H 136 H Calcium Phosphorus Magnesium ALT Alkaline Phosphatase Total Creatine Kinase CK-MB (CK-2) Rel Index Troponin T Albumin LDL Cholesterol Direct PTH Intact Salicylates Acetaminophen Crossmatch 03/20/19 03/20/19 03/20/19 05:38 08:40 08:40 WBC RBC 2.61 L Hgb 7.1 L Hct 22.0 L MCV MCH 27 L MCHC RDW 19.6 H Plt Count Lymph % (Auto) 8.2 L Avery % (Auto) 8.3 H Eos % (Auto) 5.7 H Baso % (Auto) Lymph # 0.8 L Avery # Eos # 0.5 H Baso # Seg Neutrophils % 77.3 H Seg Neuts % (Manual) Lymphocytes % (Manual) Eosinophils % (Manual) Seg Neutrophils # Lymphocytes # (Manual) Eosinophils # (Manual) PT INR D-Dimer POC ABG pH POC ABG pCO2 POC ABG pO2 ABG pO2 ABG HCO3 ABG Base Excess ABG Hemoglobin Oxyhemoglobin Sodium Potassium Chloride 95.9 L Carbon Dioxide BUN 69 H Creatinine 2.8 H Glucose 115 H POC Glucose 134 H Calcium 10.5 H Phosphorus Magnesium ALT Alkaline Phosphatase Total Creatine Kinase CK-MB (CK-2) Rel Index Troponin T Albumin LDL Cholesterol Direct PTH Intact Salicylates Acetaminophen Crossmatch 03/20/19 03/20/19 03/20/19 12:13 18:04 23:49 WBC RBC Hgb Hct MCV MCH MCHC RDW Plt Count Lymph % (Auto) Avery % (Auto) Eos % (Auto) Baso % (Auto) Lymph # Avery # Eos # Baso # Seg Neutrophils % Seg Neuts % (Manual) Lymphocytes % (Manual) Eosinophils % (Manual) Seg Neutrophils # Lymphocytes # (Manual) Eosinophils # (Manual) PT INR D-Dimer POC ABG pH POC ABG pCO2 POC ABG pO2 ABG pO2 ABG HCO3 ABG Base Excess ABG Hemoglobin Oxyhemoglobin Sodium Potassium Chloride Carbon Dioxide BUN Creatinine Glucose POC Glucose 144 H 165 H 172 H Calcium Phosphorus Magnesium ALT Alkaline Phosphatase Total Creatine Kinase CK-MB (CK-2) Rel Index Troponin T Albumin LDL Cholesterol Direct PTH Intact Salicylates Acetaminophen Crossmatch 03/21/19 03/21/19 03/21/19 05:00 06:29 06:30 WBC RBC 2.72 L Hgb 7.4 L Hct 22.9 L MCV MCH 27 L MCHC RDW 19.4 H Plt Count Lymph % (Auto) Avery % (Auto) Eos % (Auto) Baso % (Auto) Lymph # Avery # Eos # Baso # Seg Neutrophils % Seg Neuts % (Manual) 81.0 H Lymphocytes % (Manual) 8.0 L Eosinophils % (Manual) 8.0 H Seg Neutrophils # Lymphocytes # (Manual) 0.7 L Eosinophils # (Manual) 0.7 H PT INR D-Dimer POC ABG pH POC ABG pCO2 POC ABG pO2 ABG pO2 ABG HCO3 ABG Base Excess ABG Hemoglobin Oxyhemoglobin Sodium Potassium Chloride Carbon Dioxide 33 H BUN 43 H Creatinine 1.7 H Glucose 145 H POC Glucose 156 H Calcium Phosphorus Magnesium ALT Alkaline Phosphatase 212 H Total Creatine Kinase CK-MB (CK-2) Rel Index Troponin T Albumin 2.2 L LDL Cholesterol Direct PTH Intact Salicylates Acetaminophen Crossmatch 03/21/19 03/21/19 03/22/19 12:02 18:07 00:21 WBC RBC Hgb Hct MCV MCH MCHC RDW Plt Count Lymph % (Auto) Avery % (Auto) Eos % (Auto) Baso % (Auto) Lymph # Avery # Eos # Baso # Seg Neutrophils % Seg Neuts % (Manual) Lymphocytes % (Manual) Eosinophils % (Manual) Seg Neutrophils # Lymphocytes # (Manual) Eosinophils # (Manual) PT INR D-Dimer POC ABG pH POC ABG pCO2 POC ABG pO2 ABG pO2 ABG HCO3 ABG Base Excess ABG Hemoglobin Oxyhemoglobin Sodium Potassium Chloride Carbon Dioxide BUN Creatinine Glucose POC Glucose 163 H 144 H 153 H Calcium Phosphorus Magnesium ALT Alkaline Phosphatase Total Creatine Kinase CK-MB (CK-2) Rel Index Troponin T Albumin LDL Cholesterol Direct PTH Intact Salicylates Acetaminophen Crossmatch 03/22/19 03/22/19 03/22/19 05:23 05:23 05:31 WBC RBC 2.58 L Hgb 7.1 L Hct 21.8 L MCV MCH 27 L MCHC RDW 19.2 H Plt Count Lymph % (Auto) Avery % (Auto) Eos % (Auto) Baso % (Auto) Lymph # Avery # Eos # Baso # Seg Neutrophils % Seg Neuts % (Manual) Lymphocytes % (Manual) Eosinophils % (Manual) Seg Neutrophils # Lymphocytes # (Manual) Eosinophils # (Manual) PT INR D-Dimer POC ABG pH POC ABG pCO2 POC ABG pO2 ABG pO2 ABG HCO3 ABG Base Excess ABG Hemoglobin Oxyhemoglobin Sodium 147 H Potassium Chloride Carbon Dioxide BUN 68 H Creatinine 2.5 H Glucose POC Glucose 116 H Calcium 10.3 H Phosphorus Magnesium ALT Alkaline Phosphatase Total Creatine Kinase CK-MB (CK-2) Rel Index Troponin T Albumin LDL Cholesterol Direct PTH Intact Salicylates Acetaminophen Crossmatch 03/22/19 03/22/19 03/22/19 08:48 12:37 17:35 WBC RBC Hgb Hct MCV MCH MCHC RDW Plt Count Lymph % (Auto) Avery % (Auto) Eos % (Auto) Baso % (Auto) Lymph # Avery # Eos # Baso # Seg Neutrophils % Seg Neuts % (Manual) Lymphocytes % (Manual) Eosinophils % (Manual) Seg Neutrophils # Lymphocytes # (Manual) Eosinophils # (Manual) PT INR D-Dimer POC ABG pH POC ABG pCO2 POC ABG pO2 ABG pO2 ABG HCO3 ABG Base Excess ABG Hemoglobin Oxyhemoglobin Sodium Potassium Chloride Carbon Dioxide BUN Creatinine Glucose POC Glucose 143 H 155 H Calcium Phosphorus Magnesium ALT Alkaline Phosphatase Total Creatine Kinase CK-MB (CK-2) Rel Index Troponin T Albumin LDL Cholesterol Direct PTH Intact Salicylates Acetaminophen Crossmatch See Detail 03/23/19 03/23/19 03/23/19 00:07 04:00 04:00 WBC 11.2 H RBC 2.32 L Hgb 6.4 L Hct 19.7 L* MCV MCH MCHC RDW 19.4 H Plt Count Lymph % (Auto) Avery % (Auto) Eos % (Auto) Baso % (Auto) Lymph # Avery # Eos # Baso # Seg Neutrophils % Seg Neuts % (Manual) Lymphocytes % (Manual) Eosinophils % (Manual) Seg Neutrophils # Lymphocytes # (Manual) Eosinophils # (Manual) PT INR D-Dimer POC ABG pH POC ABG pCO2 POC ABG pO2 ABG pO2 ABG HCO3 ABG Base Excess ABG Hemoglobin Oxyhemoglobin Sodium 147 H Potassium 5.2 H Chloride Carbon Dioxide BUN 86 H Creatinine 3.2 H Glucose 128 H POC Glucose 135 H Calcium 10.3 H Phosphorus Magnesium ALT Alkaline Phosphatase Total Creatine Kinase CK-MB (CK-2) Rel Index Troponin T Albumin LDL Cholesterol Direct PTH Intact Salicylates Acetaminophen Crossmatch 03/23/19 03/23/19 03/23/19 05:21 11:36 11:36 WBC RBC Hgb 7.9 L Hct 25.0 L MCV MCH MCHC RDW Plt Count Lymph % (Auto) Avery % (Auto) Eos % (Auto) Baso % (Auto) Lymph # Avery # Eos # Baso # Seg Neutrophils % Seg Neuts % (Manual) Lymphocytes % (Manual) Eosinophils % (Manual) Seg Neutrophils # Lymphocytes # (Manual) Eosinophils # (Manual) PT INR D-Dimer POC ABG pH POC ABG pCO2 POC ABG pO2 ABG pO2 ABG HCO3 ABG Base Excess ABG Hemoglobin Oxyhemoglobin Sodium Potassium Chloride Carbon Dioxide BUN Creatinine Glucose POC Glucose 132 H 147 H Calcium Phosphorus Magnesium ALT Alkaline Phosphatase Total Creatine Kinase CK-MB (CK-2) Rel Index Troponin T Albumin LDL Cholesterol Direct PTH Intact Salicylates Acetaminophen Crossmatch 03/23/19 03/24/19 03/24/19 17:31 01:22 04:20 WBC 12.2 H RBC 3.05 L Hgb 8.3 L Hct 25.9 L MCV MCH 27 L MCHC RDW 18.7 H Plt Count Lymph % (Auto) Avery % (Auto) Eos % (Auto) Baso % (Auto) Lymph # Avery # Eos # Baso # Seg Neutrophils % Seg Neuts % (Manual) Lymphocytes % (Manual) Eosinophils % (Manual) Seg Neutrophils # Lymphocytes # (Manual) Eosinophils # (Manual) PT INR D-Dimer POC ABG pH POC ABG pCO2 POC ABG pO2 ABG pO2 ABG HCO3 ABG Base Excess ABG Hemoglobin Oxyhemoglobin Sodium Potassium Chloride Carbon Dioxide BUN Creatinine Glucose POC Glucose 182 H 113 H Calcium Phosphorus Magnesium ALT Alkaline Phosphatase Total Creatine Kinase CK-MB (CK-2) Rel Index Troponin T Albumin LDL Cholesterol Direct PTH Intact Salicylates Acetaminophen Crossmatch 03/24/19 03/24/19 03/24/19 04:20 11:59 18:14 WBC RBC Hgb Hct MCV MCH MCHC RDW Plt Count Lymph % (Auto) Avery % (Auto) Eos % (Auto) Baso % (Auto) Lymph # Avery # Eos # Baso # Seg Neutrophils % Seg Neuts % (Manual) Lymphocytes % (Manual) Eosinophils % (Manual) Seg Neutrophils # Lymphocytes # (Manual) Eosinophils # (Manual) PT INR D-Dimer POC ABG pH POC ABG pCO2 POC ABG pO2 ABG pO2 ABG HCO3 ABG Base Excess ABG Hemoglobin Oxyhemoglobin Sodium Potassium Chloride 94.8 L Carbon Dioxide 32 H BUN 53 H Creatinine 2.3 H Glucose POC Glucose 163 H 134 H Calcium Phosphorus Magnesium ALT Alkaline Phosphatase Total Creatine Kinase CK-MB (CK-2) Rel Index Troponin T Albumin LDL Cholesterol Direct PTH Intact Salicylates Acetaminophen Crossmatch 03/24/19 03/25/19 03/25/19 23:15 05:52 12:02 WBC RBC Hgb Hct MCV MCH MCHC RDW Plt Count Lymph % (Auto) Avery % (Auto) Eos % (Auto) Baso % (Auto) Lymph # Avery # Eos # Baso # Seg Neutrophils % Seg Neuts % (Manual) Lymphocytes % (Manual) Eosinophils % (Manual) Seg Neutrophils # Lymphocytes # (Manual) Eosinophils # (Manual) PT INR D-Dimer POC ABG pH POC ABG pCO2 POC ABG pO2 ABG pO2 ABG HCO3 ABG Base Excess ABG Hemoglobin Oxyhemoglobin Sodium Potassium Chloride Carbon Dioxide BUN Creatinine Glucose POC Glucose 129 H 123 H 125 H Calcium Phosphorus Magnesium ALT Alkaline Phosphatase Total Creatine Kinase CK-MB (CK-2) Rel Index Troponin T Albumin LDL Cholesterol Direct PTH Intact Salicylates Acetaminophen Crossmatch 03/25/19 03/26/19 03/26/19 17:27 00:30 05:35 WBC RBC 3.01 L Hgb 8.1 L Hct 25.7 L MCV MCH 27 L MCHC RDW 19.2 H Plt Count Lymph % (Auto) 11.4 L [place] % (Auto) Eos % (Auto) 8.0 H Baso % (Auto) Lymph # 1.0 L Avery # Eos # 0.7 H Baso # Seg Neutrophils % 73.9 H Seg Neuts % (Manual) Lymphocytes % (Manual) Eosinophils % (Manual) Seg Neutrophils # Lymphocytes # (Manual) Eosinophils # (Manual) PT INR D-Dimer POC ABG pH POC ABG pCO2 POC ABG pO2 ABG pO2 ABG HCO3 ABG Base Excess ABG Hemoglobin Oxyhemoglobin Sodium Potassium Chloride Carbon Dioxide BUN Creatinine Glucose POC Glucose 130 H 129 H Calcium Phosphorus Magnesium ALT Alkaline Phosphatase Total Creatine Kinase CK-MB (CK-2) Rel Index Troponin T Albumin LDL Cholesterol Direct PTH Intact Salicylates Acetaminophen Crossmatch 03/26/19 03/26/19 03/26/19 05:35 05:45 12:16 WBC RBC Hgb Hct MCV MCH MCHC RDW Plt Count Lymph % (Auto) Avery % (Auto) Eos % (Auto) Baso % (Auto) Lymph # Avery # Eos # Baso # Seg Neutrophils % Seg Neuts % (Manual) Lymphocytes % (Manual) Eosinophils % (Manual) Seg Neutrophils # Lymphocytes # (Manual) Eosinophils # (Manual) PT INR D-Dimer POC ABG pH POC ABG pCO2 POC ABG pO2 ABG pO2 ABG HCO3 ABG Base Excess ABG Hemoglobin Oxyhemoglobin Sodium Potassium Chloride 94.9 L Carbon Dioxide 31 H BUN 44 H Creatinine 2.0 H Glucose POC Glucose 118 H 107 H Calcium Phosphorus Magnesium ALT Alkaline Phosphatase Total Creatine Kinase CK-MB (CK-2) Rel Index Troponin T Albumin LDL Cholesterol Direct PTH Intact Salicylates Acetaminophen Crossmatch 03/26/19 03/27/19 03/27/19 17:56 00:36 05:37 WBC RBC Hgb Hct MCV MCH MCHC RDW Plt Count Lymph % (Auto) Avery % (Auto) Eos % (Auto) Baso % (Auto) Lymph # Avery # Eos # Baso # Seg Neutrophils % Seg Neuts % (Manual) Lymphocytes % (Manual) Eosinophils % (Manual) Seg Neutrophils # Lymphocytes # (Manual) Eosinophils # (Manual) PT INR D-Dimer POC ABG pH POC ABG pCO2 POC ABG pO2 ABG pO2 ABG HCO3 ABG Base Excess ABG Hemoglobin Oxyhemoglobin Sodium Potassium Chloride Carbon Dioxide BUN Creatinine Glucose POC Glucose 107 H 110 H 122 H Calcium Phosphorus Magnesium ALT Alkaline Phosphatase Total Creatine Kinase CK-MB (CK-2) Rel Index Troponin T Albumin LDL Cholesterol Direct PTH Intact Salicylates Acetaminophen Crossmatch 03/27/19 03/27/19 03/28/19 11:22 18:00 05:17 WBC RBC Hgb Hct MCV MCH MCHC RDW Plt Count Lymph % (Auto) Avery % (Auto) Eos % (Auto) Baso % (Auto) Lymph # Avery # Eos # Baso # Seg Neutrophils % Seg Neuts % (Manual) Lymphocytes % (Manual) Eosinophils % (Manual) Seg Neutrophils # Lymphocytes # (Manual) Eosinophils # (Manual) PT INR D-Dimer POC ABG pH POC ABG pCO2 POC ABG pO2 ABG pO2 ABG HCO3 ABG Base Excess ABG Hemoglobin Oxyhemoglobin Sodium Potassium Chloride Carbon Dioxide BUN Creatinine Glucose POC Glucose 120 H 111 H 107 H Calcium Phosphorus Magnesium ALT Alkaline Phosphatase Total Creatine Kinase CK-MB (CK-2) Rel Index Troponin T Albumin LDL Cholesterol Direct PTH Intact Salicylates Acetaminophen Crossmatch 03/28/19 03/28/19 03/29/19 12:27 18:08 05:47 WBC RBC Hgb Hct MCV MCH MCHC RDW Plt Count Lymph % (Auto) Avery % (Auto) Eos % (Auto) Baso % (Auto) Lymph # Avery # Eos # Baso # Seg Neutrophils % Seg Neuts % (Manual) Lymphocytes % (Manual) Eosinophils % (Manual) Seg Neutrophils # Lymphocytes # (Manual) Eosinophils # (Manual) PT INR D-Dimer POC ABG pH POC ABG pCO2 POC ABG pO2 ABG pO2 ABG HCO3 ABG Base Excess ABG Hemoglobin Oxyhemoglobin Sodium Potassium Chloride Carbon Dioxide BUN Creatinine Glucose POC Glucose 114 H 121 H 112 H Calcium Phosphorus Magnesium ALT Alkaline Phosphatase Total Creatine Kinase CK-MB (CK-2) Rel Index Troponin T Albumin LDL Cholesterol Direct PTH Intact Salicylates Acetaminophen Crossmatch 03/29/19 03/29/19 03/30/19 12:14 18:08 00:31 WBC RBC Hgb Hct MCV MCH MCHC RDW Plt Count Lymph % (Auto) Avery % (Auto) Eos % (Auto) Baso % (Auto) Lymph # Avery # Eos # Baso # Seg Neutrophils % Seg Neuts % (Manual) Lymphocytes % (Manual) Eosinophils % (Manual) Seg Neutrophils # Lymphocytes # (Manual) Eosinophils # (Manual) PT INR D-Dimer POC ABG pH POC ABG pCO2 POC ABG pO2 ABG pO2 ABG HCO3 ABG Base Excess ABG Hemoglobin Oxyhemoglobin Sodium Potassium Chloride Carbon Dioxide BUN Creatinine Glucose POC Glucose 117 H 140 H 114 H Calcium Phosphorus Magnesium ALT Alkaline Phosphatase Total Creatine Kinase CK-MB (CK-2) Rel Index Troponin T Albumin LDL Cholesterol Direct PTH Intact Salicylates Acetaminophen Crossmatch 03/30/19 03/30/19 03/30/19 10:13 10:13 23:53 WBC RBC 2.81 L Hgb 7.7 L Hct 24.3 L MCV MCH 27 L MCHC RDW 19.0 H Plt Count Lymph % (Auto) 12.2 L Avery % (Auto) Eos % (Auto) 7.9 H Baso % (Auto) Lymph # 1.0 L Avery # Eos # 0.6 H Baso # Seg Neutrophils % 72.3 H Seg Neuts % (Manual) Lymphocytes % (Manual) Eosinophils % (Manual) Seg Neutrophils # Lymphocytes # (Manual) Eosinophils # (Manual) PT INR D-Dimer POC ABG pH POC ABG pCO2 POC ABG pO2 ABG pO2 ABG HCO3 ABG Base Excess ABG Hemoglobin Oxyhemoglobin Sodium Potassium 5.1 H Chloride 96.5 L Carbon Dioxide BUN 73 H Creatinine 3.9 H D Glucose POC Glucose 114 H Calcium 10.3 H Phosphorus 6.30 H Magnesium 2.70 H ALT Alkaline Phosphatase 185 H Total Creatine Kinase CK-MB (CK-2) Rel Index Troponin T Albumin 2.6 L LDL Cholesterol Direct PTH Intact Salicylates Acetaminophen Crossmatch 03/31/19 03/31/19 03/31/19 05:45 10:26 10:26 WBC RBC 3.01 L Hgb 8.2 L Hct 26.4 L MCV MCH 27 L MCHC 31 L RDW 20.3 H Plt Count Lymph % (Auto) 13.3 L Avery % (Auto) Eos % (Auto) 7.2 H Baso % (Auto) Lymph # 1.1 L Avery # Eos # 0.6 H Baso # Seg Neutrophils % 72.1 H Seg Neuts % (Manual) Lymphocytes % (Manual) Eosinophils % (Manual) Seg Neutrophils # Lymphocytes # (Manual) Eosinophils # (Manual) PT INR D-Dimer POC ABG pH POC ABG pCO2 POC ABG pO2 ABG pO2 ABG HCO3 ABG Base Excess ABG Hemoglobin Oxyhemoglobin Sodium Potassium Chloride 96.9 L Carbon Dioxide 33 H BUN 37 H Creatinine 2.4 H Glucose POC Glucose 108 H Calcium 10.3 H Phosphorus Magnesium ALT Alkaline Phosphatase Total Creatine Kinase CK-MB (CK-2) Rel Index Troponin T Albumin LDL Cholesterol Direct PTH Intact Salicylates Acetaminophen Crossmatch 03/31/19 04/01/19 04/01/19 12:38 05:48 12:06 WBC RBC Hgb Hct MCV MCH MCHC RDW Plt Count Lymph % (Auto) Avery % (Auto) Eos % (Auto) Baso % (Auto) Lymph # Avery # Eos # Baso # Seg Neutrophils % Seg Neuts % (Manual) Lymphocytes % (Manual) Eosinophils % (Manual) Seg Neutrophils # Lymphocytes # (Manual) Eosinophils # (Manual) PT INR D-Dimer POC ABG pH POC ABG pCO2 POC ABG pO2 ABG pO2 ABG HCO3 ABG Base Excess ABG Hemoglobin Oxyhemoglobin Sodium Potassium Chloride Carbon Dioxide BUN Creatinine Glucose POC Glucose 108 H 114 H 111 H Calcium Phosphorus Magnesium ALT Alkaline Phosphatase Total Creatine Kinase CK-MB (CK-2) Rel Index Troponin T Albumin LDL Cholesterol Direct PTH Intact Salicylates Acetaminophen Crossmatch 04/01/19 04/02/19 04/04/19 18:24 00:36 23:55 WBC RBC Hgb Hct MCV MCH MCHC RDW Plt Count Lymph % (Auto) Avery % (Auto) Eos % (Auto) Baso % (Auto) Lymph # Avery # Eos # Baso # Seg Neutrophils % Seg Neuts % (Manual) Lymphocytes % (Manual) Eosinophils % (Manual) Seg Neutrophils # Lymphocytes # (Manual) Eosinophils # (Manual) PT INR D-Dimer POC ABG pH POC ABG pCO2 POC ABG pO2 ABG pO2 ABG HCO3 ABG Base Excess ABG Hemoglobin Oxyhemoglobin Sodium Potassium Chloride Carbon Dioxide BUN Creatinine Glucose POC Glucose 113 H 117 H 109 H Calcium Phosphorus Magnesium ALT Alkaline Phosphatase Total Creatine Kinase CK-MB (CK-2) Rel Index Troponin T Albumin LDL Cholesterol Direct PTH Intact Salicylates Acetaminophen Crossmatch 04/06/19 04/06/19 04/06/19 00:11 06:02 23:30 WBC RBC Hgb Hct MCV MCH MCHC RDW Plt Count Lymph % (Auto) Avery % (Auto) Eos % (Auto) Baso % (Auto) Lymph # Avery # Eos # Baso # Seg Neutrophils % Seg Neuts % (Manual) Lymphocytes % (Manual) Eosinophils % (Manual) Seg Neutrophils # Lymphocytes # (Manual) Eosinophils # (Manual) PT INR D-Dimer POC ABG pH POC ABG pCO2 POC ABG pO2 ABG pO2 ABG HCO3 ABG Base Excess ABG Hemoglobin Oxyhemoglobin Sodium Potassium Chloride Carbon Dioxide BUN Creatinine Glucose POC Glucose 116 H 112 H 112 H Calcium Phosphorus Magnesium ALT Alkaline Phosphatase Total Creatine Kinase CK-MB (CK-2) Rel Index Troponin T Albumin LDL Cholesterol Direct PTH Intact Salicylates Acetaminophen Crossmatch 04/08/19 04/08/19 04/08/19 02:23 06:19 13:01 WBC RBC Hgb Hct MCV MCH MCHC RDW Plt Count Lymph % (Auto) Avery % (Auto) Eos % (Auto) Baso % (Auto) Lymph # Avery # Eos # Baso # Seg Neutrophils % Seg Neuts % (Manual) Lymphocytes % (Manual) Eosinophils % (Manual) Seg Neutrophils # Lymphocytes # (Manual) Eosinophils # (Manual) PT INR D-Dimer POC ABG pH POC ABG pCO2 POC ABG pO2 ABG pO2 ABG HCO3 ABG Base Excess ABG Hemoglobin Oxyhemoglobin Sodium Potassium Chloride Carbon Dioxide BUN Creatinine Glucose POC Glucose 144 H 126 H 118 H Calcium Phosphorus Magnesium ALT Alkaline Phosphatase Total Creatine Kinase CK-MB (CK-2) Rel Index Troponin T Albumin LDL Cholesterol Direct PTH Intact Salicylates Acetaminophen Crossmatch 04/08/19 04/09/19 04/10/19 23:28 05:52 06:34 WBC RBC Hgb Hct MCV MCH MCHC RDW Plt Count Lymph % (Auto) Avery % (Auto) Eos % (Auto) Baso % (Auto) Lymph # Avery # Eos # Baso # Seg Neutrophils % Seg Neuts % (Manual) Lymphocytes % (Manual) Eosinophils % (Manual) Seg Neutrophils # Lymphocytes # (Manual) Eosinophils # (Manual) PT INR D-Dimer POC ABG pH POC ABG pCO2 POC ABG pO2 ABG pO2 ABG HCO3 ABG Base Excess ABG Hemoglobin Oxyhemoglobin Sodium Potassium Chloride Carbon Dioxide BUN Creatinine Glucose POC Glucose 119 H 116 H 114 H Calcium Phosphorus Magnesium ALT Alkaline Phosphatase Total Creatine Kinase CK-MB (CK-2) Rel Index Troponin T Albumin LDL Cholesterol Direct PTH Intact Salicylates Acetaminophen Crossmatch 04/10/19 04/10/19 04/11/19 12:34 18:59 00:36 WBC RBC Hgb Hct MCV MCH MCHC RDW Plt Count Lymph % (Auto) Avery % (Auto) Eos % (Auto) Baso % (Auto) Lymph # Avery # Eos # Baso # Seg Neutrophils % Seg Neuts % (Manual) Lymphocytes % (Manual) Eosinophils % (Manual) Seg Neutrophils # Lymphocytes # (Manual) Eosinophils # (Manual) PT INR D-Dimer POC ABG pH POC ABG pCO2 POC ABG pO2 ABG pO2 ABG HCO3 ABG Base Excess ABG Hemoglobin Oxyhemoglobin Sodium Potassium Chloride Carbon Dioxide BUN Creatinine Glucose POC Glucose 112 H 109 H 124 H Calcium Phosphorus Magnesium ALT Alkaline Phosphatase Total Creatine Kinase CK-MB (CK-2) Rel Index Troponin T Albumin LDL Cholesterol Direct PTH Intact Salicylates Acetaminophen Crossmatch 04/11/19 04/11/19 04/12/19 08:01 17:25 02:18 WBC RBC Hgb Hct MCV MCH MCHC RDW Plt Count Lymph % (Auto) Avery % (Auto) Eos % (Auto) Baso % (Auto) Lymph # Avery # Eos # Baso # Seg Neutrophils % Seg Neuts % (Manual) Lymphocytes % (Manual) Eosinophils % (Manual) Seg Neutrophils # Lymphocytes # (Manual) Eosinophils # (Manual) PT INR D-Dimer POC ABG pH POC ABG pCO2 POC ABG pO2 ABG pO2 ABG HCO3 ABG Base Excess ABG Hemoglobin Oxyhemoglobin Sodium Potassium Chloride Carbon Dioxide BUN Creatinine Glucose POC Glucose 118 H 106 H 125 H Calcium Phosphorus Magnesium ALT Alkaline Phosphatase Total Creatine Kinase CK-MB (CK-2) Rel Index Troponin T Albumin LDL Cholesterol Direct PTH Intact Salicylates Acetaminophen Crossmatch 04/12/19 04/12/19 04/12/19 06:24 12:22 17:13 WBC RBC Hgb Hct MCV MCH MCHC RDW Plt Count Lymph % (Auto) Avery % (Auto) Eos % (Auto) Baso % (Auto) Lymph # Avery # Eos # Baso # Seg Neutrophils % Seg Neuts % (Manual) Lymphocytes % (Manual) Eosinophils % (Manual) Seg Neutrophils # Lymphocytes # (Manual) Eosinophils # (Manual) PT INR D-Dimer POC ABG pH POC ABG pCO2 POC ABG pO2 ABG pO2 ABG HCO3 ABG Base Excess ABG Hemoglobin Oxyhemoglobin Sodium Potassium Chloride Carbon Dioxide BUN Creatinine Glucose POC Glucose 128 H 114 H 110 H Calcium Phosphorus Magnesium ALT Alkaline Phosphatase Total Creatine Kinase CK-MB (CK-2) Rel Index Troponin T Albumin LDL Cholesterol Direct PTH Intact Salicylates Acetaminophen Crossmatch 04/13/19 04/13/19 04/13/19 06:59 07:31 07:31 WBC RBC 3.34 L Hgb 8.9 L Hct 28.6 L MCV MCH 27 L MCHC 31 L RDW 19.6 H Plt Count Lymph % (Auto) Avery % (Auto) Eos % (Auto) Baso % (Auto) Lymph # Avery # Eos # Baso # Seg Neutrophils % Seg Neuts % (Manual) Lymphocytes % (Manual) Eosinophils % (Manual) Seg Neutrophils # Lymphocytes # (Manual) Eosinophils # (Manual) PT INR D-Dimer POC ABG pH POC ABG pCO2 POC ABG pO2 ABG pO2 ABG HCO3 ABG Base Excess ABG Hemoglobin Oxyhemoglobin Sodium Potassium Chloride 96.4 L Carbon Dioxide 33 H BUN 66 H Creatinine 4.5 H Glucose 103 H POC Glucose 107 H Calcium Phosphorus Magnesium ALT Alkaline Phosphatase Total Creatine Kinase CK-MB (CK-2) Rel Index Troponin T Albumin LDL Cholesterol Direct PTH Intact Salicylates Acetaminophen Crossmatch 04/13/19 04/14/19 04/14/19 23:43 05:50 13:07 WBC RBC Hgb Hct MCV MCH MCHC RDW Plt Count Lymph % (Auto) Avery % (Auto) Eos % (Auto) Baso % (Auto) Lymph # Avery # Eos # Baso # Seg Neutrophils % Seg Neuts % (Manual) Lymphocytes % (Manual) Eosinophils % (Manual) Seg Neutrophils # Lymphocytes # (Manual) Eosinophils # (Manual) PT INR D-Dimer POC ABG pH POC ABG pCO2 POC ABG pO2 ABG pO2 ABG HCO3 ABG Base Excess ABG Hemoglobin Oxyhemoglobin Sodium Potassium Chloride Carbon Dioxide BUN Creatinine Glucose POC Glucose 119 H 112 H 112 H Calcium Phosphorus Magnesium ALT Alkaline Phosphatase Total Creatine Kinase CK-MB (CK-2) Rel Index Troponin T Albumin LDL Cholesterol Direct PTH Intact Salicylates Acetaminophen Crossmatch 04/14/19 04/15/19 04/15/19 18:35 01:18 05:17 WBC RBC Hgb Hct MCV MCH MCHC RDW Plt Count Lymph % (Auto) Avery % (Auto) Eos % (Auto) Baso % (Auto) Lymph # Avery # Eos # Baso # Seg Neutrophils % Seg Neuts % (Manual) Lymphocytes % (Manual) Eosinophils % (Manual) Seg Neutrophils # Lymphocytes # (Manual) Eosinophils # (Manual) PT INR D-Dimer POC ABG pH POC ABG pCO2 POC ABG pO2 ABG pO2 ABG HCO3 ABG Base Excess ABG Hemoglobin Oxyhemoglobin Sodium Potassium Chloride Carbon Dioxide BUN Creatinine Glucose POC Glucose 114 H 114 H 114 H Calcium Phosphorus Magnesium ALT Alkaline Phosphatase Total Creatine Kinase CK-MB (CK-2) Rel Index Troponin T Albumin LDL Cholesterol Direct PTH Intact Salicylates Acetaminophen Crossmatch 04/15/19 04/15/19 04/16/19 11:50 23:39 05:41 WBC RBC Hgb Hct MCV MCH MCHC RDW Plt Count Lymph % (Auto) Avery % (Auto) Eos % (Auto) Baso % (Auto) Lymph # Avery # Eos # Baso # Seg Neutrophils % Seg Neuts % (Manual) Lymphocytes % (Manual) Eosinophils % (Manual) Seg Neutrophils # Lymphocytes # (Manual) Eosinophils # (Manual) PT INR D-Dimer POC ABG pH POC ABG pCO2 POC ABG pO2 ABG pO2 ABG HCO3 ABG Base Excess ABG Hemoglobin Oxyhemoglobin Sodium Potassium Chloride Carbon Dioxide BUN Creatinine Glucose POC Glucose 109 H 115 H 125 H Calcium Phosphorus Magnesium ALT Alkaline Phosphatase Total Creatine Kinase CK-MB (CK-2) Rel Index Troponin T Albumin LDL Cholesterol Direct PTH Intact Salicylates Acetaminophen Crossmatch 04/16/19 04/17/19 04/17/19 12:53 01:00 12:38 WBC RBC Hgb Hct MCV MCH MCHC RDW Plt Count Lymph % (Auto) Avery % (Auto) Eos % (Auto) Baso % (Auto) Lymph # Avery # Eos # Baso # Seg Neutrophils % Seg Neuts % (Manual) Lymphocytes % (Manual) Eosinophils % (Manual) Seg Neutrophils # Lymphocytes # (Manual) Eosinophils # (Manual) PT INR D-Dimer POC ABG pH POC ABG pCO2 POC ABG pO2 ABG pO2 ABG HCO3 ABG Base Excess ABG Hemoglobin Oxyhemoglobin Sodium Potassium Chloride Carbon Dioxide BUN Creatinine Glucose POC Glucose 121 H 127 H 159 H Calcium Phosphorus Magnesium ALT Alkaline Phosphatase Total Creatine Kinase CK-MB (CK-2) Rel Index Troponin T Albumin LDL Cholesterol Direct PTH Intact Salicylates Acetaminophen Crossmatch 04/17/19 04/17/19 04/18/19 18:27 23:36 07:19 WBC RBC 3.49 L Hgb 9.0 L Hct 29.9 L MCV MCH 26 L MCHC 30 L RDW 20.0 H Plt Count Lymph % (Auto) Avery % (Auto) Eos % (Auto) Baso % (Auto) Lymph # Avery # Eos # Baso # Seg Neutrophils % Seg Neuts % (Manual) Lymphocytes % (Manual) Eosinophils % (Manual) Seg Neutrophils # Lymphocytes # (Manual) Eosinophils # (Manual) PT INR D-Dimer POC ABG pH POC ABG pCO2 POC ABG pO2 ABG pO2 ABG HCO3 ABG Base Excess ABG Hemoglobin Oxyhemoglobin Sodium Potassium Chloride Carbon Dioxide BUN Creatinine Glucose POC Glucose 109 H 134 H Calcium Phosphorus Magnesium ALT Alkaline Phosphatase Total Creatine Kinase CK-MB (CK-2) Rel Index Troponin T Albumin LDL Cholesterol Direct PTH Intact Salicylates Acetaminophen Crossmatch 04/18/19 04/18/19 04/18/19 07:19 12:16 17:09 WBC RBC Hgb Hct MCV MCH MCHC RDW Plt Count Lymph % (Auto) Avery % (Auto) Eos % (Auto) Baso % (Auto) Lymph # Avery # Eos # Baso # Seg Neutrophils % Seg Neuts % (Manual) Lymphocytes % (Manual) Eosinophils % (Manual) Seg Neutrophils # Lymphocytes # (Manual) Eosinophils # (Manual) PT INR D-Dimer POC ABG pH POC ABG pCO2 POC ABG pO2 ABG pO2 ABG HCO3 ABG Base Excess ABG Hemoglobin Oxyhemoglobin Sodium Potassium Chloride Carbon Dioxide BUN 41 H Creatinine 2.9 H Glucose 122 H POC Glucose 125 H 131 H Calcium Phosphorus Magnesium ALT Alkaline Phosphatase Total Creatine Kinase CK-MB (CK-2) Rel Index Troponin T Albumin LDL Cholesterol Direct PTH Intact Salicylates Acetaminophen Crossmatch 04/18/19 04/19/19 04/19/19 23:57 05:55 11:35 WBC RBC Hgb Hct MCV MCH MCHC RDW Plt Count Lymph % (Auto) Avery % (Auto) Eos % (Auto) Baso % (Auto) Lymph # Avery # Eos # Baso # Seg Neutrophils % Seg Neuts % (Manual) Lymphocytes % (Manual) Eosinophils % (Manual) Seg Neutrophils # Lymphocytes # (Manual) Eosinophils # (Manual) PT INR D-Dimer POC ABG pH POC ABG pCO2 POC ABG pO2 ABG pO2 ABG HCO3 ABG Base Excess ABG Hemoglobin Oxyhemoglobin Sodium Potassium Chloride Carbon Dioxide BUN Creatinine Glucose POC Glucose 159 H 144 H 177 H Calcium Phosphorus Magnesium ALT Alkaline Phosphatase Total Creatine Kinase CK-MB (CK-2) Rel Index Troponin T Albumin LDL Cholesterol Direct PTH Intact Salicylates Acetaminophen Crossmatch 04/19/19 04/20/19 04/20/19 16:36 02:05 06:28 WBC RBC Hgb Hct MCV MCH MCHC RDW Plt Count Lymph % (Auto) Avery % (Auto) Eos % (Auto) Baso % (Auto) Lymph # Avery # Eos # Baso # Seg Neutrophils % Seg Neuts % (Manual) Lymphocytes % (Manual) Eosinophils % (Manual) Seg Neutrophils # Lymphocytes # (Manual) Eosinophils # (Manual) PT INR D-Dimer POC ABG pH POC ABG pCO2 POC ABG pO2 ABG pO2 ABG HCO3 ABG Base Excess ABG Hemoglobin Oxyhemoglobin Sodium Potassium Chloride Carbon Dioxide BUN Creatinine Glucose POC Glucose 134 H 142 H 132 H Calcium Phosphorus Magnesium ALT Alkaline Phosphatase Total Creatine Kinase CK-MB (CK-2) Rel Index Troponin T Albumin LDL Cholesterol Direct PTH Intact Salicylates Acetaminophen Crossmatch 04/20/19 04/20/19 04/21/19 12:37 23:34 05:59 WBC RBC Hgb Hct MCV MCH MCHC RDW Plt Count Lymph % (Auto) Avery % (Auto) Eos % (Auto) Baso % (Auto) Lymph # Avery # Eos # Baso # Seg Neutrophils % Seg Neuts % (Manual) Lymphocytes % (Manual) Eosinophils % (Manual) Seg Neutrophils # Lymphocytes # (Manual) Eosinophils # (Manual) PT INR D-Dimer POC ABG pH POC ABG pCO2 POC ABG pO2 ABG pO2 ABG HCO3 ABG Base Excess ABG Hemoglobin Oxyhemoglobin Sodium Potassium Chloride Carbon Dioxide BUN Creatinine Glucose POC Glucose 163 H 166 H 140 H Calcium Phosphorus Magnesium ALT Alkaline Phosphatase Total Creatine Kinase CK-MB (CK-2) Rel Index Troponin T Albumin LDL Cholesterol Direct PTH Intact Salicylates Acetaminophen Crossmatch 04/21/19 04/21/19 04/21/19 12:07 17:22 23:43 WBC RBC Hgb Hct MCV MCH MCHC RDW Plt Count Lymph % (Auto) Avery % (Auto) Eos % (Auto) Baso % (Auto) Lymph # Avery # Eos # Baso # Seg Neutrophils % Seg Neuts % (Manual) Lymphocytes % (Manual) Eosinophils % (Manual) Seg Neutrophils # Lymphocytes # (Manual) Eosinophils # (Manual) PT INR D-Dimer POC ABG pH POC ABG pCO2 POC ABG pO2 ABG pO2 ABG HCO3 ABG Base Excess ABG Hemoglobin Oxyhemoglobin Sodium Potassium Chloride Carbon Dioxide BUN Creatinine Glucose POC Glucose 135 H 141 H 138 H Calcium Phosphorus Magnesium ALT Alkaline Phosphatase Total Creatine Kinase CK-MB (CK-2) Rel Index Troponin T Albumin LDL Cholesterol Direct PTH Intact Salicylates Acetaminophen Crossmatch 04/22/19 04/22/19 04/22/19 05:12 18:24 23:49 WBC RBC Hgb Hct MCV MCH MCHC RDW Plt Count Lymph % (Auto) Avery % (Auto) Eos % (Auto) Baso % (Auto) Lymph # Avery # Eos # Baso # Seg Neutrophils % Seg Neuts % (Manual) Lymphocytes % (Manual) Eosinophils % (Manual) Seg Neutrophils # Lymphocytes # (Manual) Eosinophils # (Manual) PT INR D-Dimer POC ABG pH POC ABG pCO2 POC ABG pO2 ABG pO2 ABG HCO3 ABG Base Excess ABG Hemoglobin Oxyhemoglobin Sodium Potassium Chloride Carbon Dioxide BUN Creatinine Glucose POC Glucose 141 H 137 H 142 H Calcium Phosphorus Magnesium ALT Alkaline Phosphatase Total Creatine Kinase CK-MB (CK-2) Rel Index Troponin T Albumin LDL Cholesterol Direct PTH Intact Salicylates Acetaminophen Crossmatch 04/23/19 04/23/19 04/23/19 05:53 08:13 11:58 WBC RBC Hgb Hct MCV MCH MCHC RDW Plt Count Lymph % (Auto) Avery % (Auto) Eos % (Auto) Baso % (Auto) Lymph # Avery # Eos # Baso # Seg Neutrophils % Seg Neuts % (Manual) Lymphocytes % (Manual) Eosinophils % (Manual) Seg Neutrophils # Lymphocytes # (Manual) Eosinophils # (Manual) PT INR D-Dimer POC ABG pH POC ABG pCO2 POC ABG pO2 ABG pO2 ABG HCO3 ABG Base Excess ABG Hemoglobin Oxyhemoglobin Sodium Potassium Chloride Carbon Dioxide BUN Creatinine Glucose POC Glucose 132 H 154 H 165 H Calcium Phosphorus Magnesium ALT Alkaline Phosphatase Total Creatine Kinase CK-MB (CK-2) Rel Index Troponin T Albumin LDL Cholesterol Direct PTH Intact Salicylates Acetaminophen Crossmatch 04/23/19 04/24/19 04/24/19 16:28 00:28 07:00 WBC RBC Hgb Hct MCV MCH MCHC RDW Plt Count Lymph % (Auto) Avery % (Auto) Eos % (Auto) Baso % (Auto) Lymph # Avery # Eos # Baso # Seg Neutrophils % Seg Neuts % (Manual) Lymphocytes % (Manual) Eosinophils % (Manual) Seg Neutrophils # Lymphocytes # (Manual) Eosinophils # (Manual) PT INR D-Dimer POC ABG pH POC ABG pCO2 POC ABG pO2 ABG pO2 ABG HCO3 ABG Base Excess ABG Hemoglobin Oxyhemoglobin Sodium Potassium Chloride Carbon Dioxide BUN Creatinine Glucose POC Glucose 136 H 140 H 141 H Calcium Phosphorus Magnesium ALT Alkaline Phosphatase Total Creatine Kinase CK-MB (CK-2) Rel Index Troponin T Albumin LDL Cholesterol Direct PTH Intact Salicylates Acetaminophen Crossmatch 04/24/19 04/24/19 04/25/19 12:38 18:57 00:38 WBC RBC Hgb Hct MCV MCH MCHC RDW Plt Count Lymph % (Auto) Avery % (Auto) Eos % (Auto) Baso % (Auto) Lymph # Avery # Eos # Baso # Seg Neutrophils % Seg Neuts % (Manual) Lymphocytes % (Manual) Eosinophils % (Manual) Seg Neutrophils # Lymphocytes # (Manual) Eosinophils # (Manual) PT INR D-Dimer POC ABG pH POC ABG pCO2 POC ABG pO2 ABG pO2 ABG HCO3 ABG Base Excess ABG Hemoglobin Oxyhemoglobin Sodium Potassium Chloride Carbon Dioxide BUN Creatinine Glucose POC Glucose 152 H 166 H 128 H Calcium Phosphorus Magnesium ALT Alkaline Phosphatase Total Creatine Kinase CK-MB (CK-2) Rel Index Troponin T Albumin LDL Cholesterol Direct PTH Intact Salicylates Acetaminophen Crossmatch 04/25/19 04/25/19 04/25/19 05:44 13:43 18:34 WBC RBC Hgb Hct MCV MCH MCHC RDW Plt Count Lymph % (Auto) Avery % (Auto) Eos % (Auto) Baso % (Auto) Lymph # Avery # Eos # Baso # Seg Neutrophils % Seg Neuts % (Manual) Lymphocytes % (Manual) Eosinophils % (Manual) Seg Neutrophils # Lymphocytes # (Manual) Eosinophils # (Manual) PT INR D-Dimer POC ABG pH POC ABG pCO2 POC ABG pO2 ABG pO2 ABG HCO3 ABG Base Excess ABG Hemoglobin Oxyhemoglobin Sodium Potassium Chloride Carbon Dioxide BUN Creatinine Glucose POC Glucose 153 H 186 H 124 H Calcium Phosphorus Magnesium ALT Alkaline Phosphatase Total Creatine Kinase CK-MB (CK-2) Rel Index Troponin T Albumin LDL Cholesterol Direct PTH Intact Salicylates Acetaminophen Crossmatch 04/26/19 04/26/19 04/26/19 00:59 05:52 10:12 WBC 11.5 H RBC 2.84 L Hgb 7.4 L Hct 23.3 L MCV 82 L MCH 26 L MCHC RDW 20.3 H Plt Count Lymph % (Auto) 7.5 L Avery % (Auto) 7.5 H Eos % (Auto) 5.3 H Baso % (Auto) Lymph # 0.9 L Avery # 0.9 H Eos # 0.6 H Baso # Seg Neutrophils % 79.2 H Seg Neuts % (Manual) Lymphocytes % (Manual) Eosinophils % (Manual) Seg Neutrophils # 9.1 H Lymphocytes # (Manual) Eosinophils # (Manual) PT INR D-Dimer POC ABG pH POC ABG pCO2 POC ABG pO2 ABG pO2 ABG HCO3 ABG Base Excess ABG Hemoglobin Oxyhemoglobin Sodium Potassium Chloride Carbon Dioxide BUN Creatinine Glucose POC Glucose 163 H 146 H Calcium Phosphorus Magnesium ALT Alkaline Phosphatase Total Creatine Kinase CK-MB (CK-2) Rel Index Troponin T Albumin LDL Cholesterol Direct PTH Intact Salicylates Acetaminophen Crossmatch 04/26/19 04/26/19 04/26/19 10:12 12:15 19:00 WBC RBC Hgb Hct MCV MCH MCHC RDW Plt Count Lymph % (Auto) Avery % (Auto) Eos % (Auto) Baso % (Auto) Lymph # Avery # Eos # Baso # Seg Neutrophils % Seg Neuts % (Manual) Lymphocytes % (Manual) Eosinophils % (Manual) Seg Neutrophils # Lymphocytes # (Manual) Eosinophils # (Manual) PT INR D-Dimer POC ABG pH POC ABG pCO2 POC ABG pO2 ABG pO2 ABG HCO3 ABG Base Excess ABG Hemoglobin Oxyhemoglobin Sodium 130 L Potassium Chloride 87.4 L Carbon Dioxide BUN 93 H Creatinine 4.2 H Glucose 140 H POC Glucose 155 H 179 H Calcium Phosphorus Magnesium ALT Alkaline Phosphatase Total Creatine Kinase CK-MB (CK-2) Rel Index Troponin T Albumin LDL Cholesterol Direct PTH Intact Salicylates Acetaminophen Crossmatch 04/27/19 04/27/19 04/27/19 00:23 06:34 17:13 WBC RBC Hgb Hct MCV MCH MCHC RDW Plt Count Lymph % (Auto) Avery % (Auto) Eos % (Auto) Baso % (Auto) Lymph # Avery # Eos # Baso # Seg Neutrophils % Seg Neuts % (Manual) Lymphocytes % (Manual) Eosinophils % (Manual) Seg Neutrophils # Lymphocytes # (Manual) Eosinophils # (Manual) PT INR D-Dimer POC ABG pH POC ABG pCO2 POC ABG pO2 ABG pO2 ABG HCO3 ABG Base Excess ABG Hemoglobin Oxyhemoglobin Sodium Potassium Chloride Carbon Dioxide BUN Creatinine Glucose POC Glucose 158 H 140 H 152 H Calcium Phosphorus Magnesium ALT Alkaline Phosphatase Total Creatine Kinase CK-MB (CK-2) Rel Index Troponin T Albumin LDL Cholesterol Direct PTH Intact Salicylates Acetaminophen Crossmatch 04/27/19 04/28/19 04/28/19 23:50 05:18 11:37 WBC RBC Hgb Hct MCV MCH MCHC RDW Plt Count Lymph % (Auto) Avery % (Auto) Eos % (Auto) Baso % (Auto) Lymph # Avery # Eos # Baso # Seg Neutrophils % Seg Neuts % (Manual) Lymphocytes % (Manual) Eosinophils % (Manual) Seg Neutrophils # Lymphocytes # (Manual) Eosinophils # (Manual) PT INR D-Dimer POC ABG pH POC ABG pCO2 POC ABG pO2 ABG pO2 ABG HCO3 ABG Base Excess ABG Hemoglobin Oxyhemoglobin Sodium Potassium Chloride Carbon Dioxide BUN Creatinine Glucose POC Glucose 160 H 145 H 177 H Calcium Phosphorus Magnesium ALT Alkaline Phosphatase Total Creatine Kinase CK-MB (CK-2) Rel Index Troponin T Albumin LDL Cholesterol Direct PTH Intact Salicylates Acetaminophen Crossmatch 04/28/19 04/28/19 04/29/19 18:31 23:47 05:50 WBC RBC Hgb Hct MCV MCH MCHC RDW Plt Count Lymph % (Auto) Avery % (Auto) Eos % (Auto) Baso % (Auto) Lymph # Avery # Eos # Baso # Seg Neutrophils % Seg Neuts % (Manual) Lymphocytes % (Manual) Eosinophils % (Manual) Seg Neutrophils # Lymphocytes # (Manual) Eosinophils # (Manual) PT INR D-Dimer POC ABG pH POC ABG pCO2 POC ABG pO2 ABG pO2 ABG HCO3 ABG Base Excess ABG Hemoglobin Oxyhemoglobin Sodium Potassium Chloride Carbon Dioxide BUN Creatinine Glucose POC Glucose 153 H 117 H 177 H Calcium Phosphorus Magnesium ALT Alkaline Phosphatase Total Creatine Kinase CK-MB (CK-2) Rel Index Troponin T Albumin LDL Cholesterol Direct PTH Intact Salicylates Acetaminophen Crossmatch 04/29/19 04/30/19 04/30/19 17:04 01:02 06:42 WBC RBC Hgb Hct MCV MCH MCHC RDW Plt Count Lymph % (Auto) Avery % (Auto) Eos % (Auto) Baso % (Auto) Lymph # Avery # Eos # Baso # Seg Neutrophils % Seg Neuts % (Manual) Lymphocytes % (Manual) Eosinophils % (Manual) Seg Neutrophils # Lymphocytes # (Manual) Eosinophils # (Manual) PT INR D-Dimer POC ABG pH POC ABG pCO2 POC ABG pO2 ABG pO2 ABG HCO3 ABG Base Excess ABG Hemoglobin Oxyhemoglobin Sodium Potassium Chloride Carbon Dioxide BUN Creatinine Glucose POC Glucose 205 H 143 H 145 H Calcium Phosphorus Magnesium ALT Alkaline Phosphatase Total Creatine Kinase CK-MB (CK-2) Rel Index Troponin T Albumin LDL Cholesterol Direct PTH Intact Salicylates Acetaminophen Crossmatch 04/30/19 04/30/19 04/30/19 11:31 18:12 23:38 WBC RBC Hgb Hct MCV MCH MCHC RDW Plt Count Lymph % (Auto) Avery % (Auto) Eos % (Auto) Baso % (Auto) Lymph # Avery # Eos # Baso # Seg Neutrophils % Seg Neuts % (Manual) Lymphocytes % (Manual) Eosinophils % (Manual) Seg Neutrophils # Lymphocytes # (Manual) Eosinophils # (Manual) PT INR D-Dimer POC ABG pH POC ABG pCO2 POC ABG pO2 ABG pO2 ABG HCO3 ABG Base Excess ABG Hemoglobin Oxyhemoglobin Sodium Potassium Chloride Carbon Dioxide BUN Creatinine Glucose POC Glucose 162 H 117 H 139 H Calcium Phosphorus Magnesium ALT Alkaline Phosphatase Total Creatine Kinase CK-MB (CK-2) Rel Index Troponin T Albumin LDL Cholesterol Direct PTH Intact Salicylates Acetaminophen Crossmatch 05/01/19 05/01/19 05/02/19 06:06 23:41 05:59 WBC RBC Hgb Hct MCV MCH MCHC RDW Plt Count Lymph % (Auto) Avery % (Auto) Eos % (Auto) Baso % (Auto) Lymph # Avery # Eos # Baso # Seg Neutrophils % Seg Neuts % (Manual) Lymphocytes % (Manual) Eosinophils % (Manual) Seg Neutrophils # Lymphocytes # (Manual) Eosinophils # (Manual) PT INR D-Dimer POC ABG pH POC ABG pCO2 POC ABG pO2 ABG pO2 ABG HCO3 ABG Base Excess ABG Hemoglobin Oxyhemoglobin Sodium Potassium Chloride Carbon Dioxide BUN Creatinine Glucose POC Glucose 150 H 140 H 130 H Calcium Phosphorus Magnesium ALT Alkaline Phosphatase Total Creatine Kinase CK-MB (CK-2) Rel Index Troponin T Albumin LDL Cholesterol Direct PTH Intact Salicylates Acetaminophen Crossmatch 05/02/19 05/02/19 05/03/19 11:55 18:10 00:15 WBC RBC Hgb Hct MCV MCH MCHC RDW Plt Count Lymph % (Auto) Avery % (Auto) Eos % (Auto) Baso % (Auto) Lymph # Avery # Eos # Baso # Seg Neutrophils % Seg Neuts % (Manual) Lymphocytes % (Manual) Eosinophils % (Manual) Seg Neutrophils # Lymphocytes # (Manual) Eosinophils # (Manual) PT INR D-Dimer POC ABG pH POC ABG pCO2 POC ABG pO2 ABG pO2 ABG HCO3 ABG Base Excess ABG Hemoglobin Oxyhemoglobin Sodium Potassium Chloride Carbon Dioxide BUN Creatinine Glucose POC Glucose 146 H 141 H 145 H Calcium Phosphorus Magnesium ALT Alkaline Phosphatase Total Creatine Kinase CK-MB (CK-2) Rel Index Troponin T Albumin LDL Cholesterol Direct PTH Intact Salicylates Acetaminophen Crossmatch 05/03/19 05/03/19 05/03/19 05:49 05:49 06:01 WBC RBC 2.84 L Hgb 7.2 L Hct 22.9 L MCV 81 L MCH 26 L MCHC RDW 20.6 H Plt Count 456 H Lymph % (Auto) 11.8 L Avery % (Auto) Eos % (Auto) 10.6 H Baso % (Auto) Lymph # 1.1 L Avery # Eos # 1.0 H Baso # Seg Neutrophils % 70.4 H Seg Neuts % (Manual) Lymphocytes % (Manual) Eosinophils % (Manual) Seg Neutrophils # Lymphocytes # (Manual) Eosinophils # (Manual) PT INR D-Dimer POC ABG pH POC ABG pCO2 POC ABG pO2 ABG pO2 ABG HCO3 ABG Base Excess ABG Hemoglobin Oxyhemoglobin Sodium Potassium Chloride 94.8 L Carbon Dioxide BUN 66 H Creatinine 3.6 H Glucose 129 H POC Glucose 135 H Calcium Phosphorus Magnesium ALT Alkaline Phosphatase Total Creatine Kinase CK-MB (CK-2) Rel Index Troponin T Albumin LDL Cholesterol Direct PTH Intact Salicylates Acetaminophen Crossmatch 05/03/19 05/03/19 05/04/19 11:04 18:40 00:06 WBC RBC Hgb Hct MCV MCH MCHC RDW Plt Count Lymph % (Auto) Avery % (Auto) Eos % (Auto) Baso % (Auto) Lymph # Avery # Eos # Baso # Seg Neutrophils % Seg Neuts % (Manual) Lymphocytes % (Manual) Eosinophils % (Manual) Seg Neutrophils # Lymphocytes # (Manual) Eosinophils # (Manual) PT INR D-Dimer POC ABG pH POC ABG pCO2 POC ABG pO2 ABG pO2 ABG HCO3 ABG Base Excess ABG Hemoglobin Oxyhemoglobin Sodium Potassium Chloride Carbon Dioxide BUN Creatinine Glucose POC Glucose 191 H 167 H 137 H Calcium Phosphorus Magnesium ALT Alkaline Phosphatase Total Creatine Kinase CK-MB (CK-2) Rel Index Troponin T Albumin LDL Cholesterol Direct PTH Intact Salicylates Acetaminophen Crossmatch 05/04/19 05/04/19 05/04/19 06:44 07:30 07:30 WBC 15.8 H RBC 2.74 L Hgb 6.7 L Hct 22.2 L MCV 81 L MCH 24 L MCHC 30 L RDW 20.4 H Plt Count 450 H Lymph % (Auto) 5.1 L Avery % (Auto) Eos % (Auto) Baso % (Auto) Lymph # 0.8 L Avery # Eos # 0.6 H Baso # Seg Neutrophils % 86.3 H Seg Neuts % (Manual) Lymphocytes % (Manual) Eosinophils % (Manual) Seg Neutrophils # 13.6 H Lymphocytes # (Manual) Eosinophils # (Manual) PT INR D-Dimer POC ABG pH POC ABG pCO2 POC ABG pO2 ABG pO2 ABG HCO3 ABG Base Excess ABG Hemoglobin Oxyhemoglobin Sodium Potassium Chloride 95.2 L Carbon Dioxide BUN 92 H Creatinine 4.8 H Glucose 139 H POC Glucose 153 H Calcium Phosphorus Magnesium ALT Alkaline Phosphatase Total Creatine Kinase CK-MB (CK-2) Rel Index Troponin T Albumin LDL Cholesterol Direct PTH Intact Salicylates Acetaminophen Crossmatch 05/04/19 05/04/19 05/05/19 12:55 16:31 01:02 WBC RBC Hgb Hct MCV MCH MCHC RDW Plt Count Lymph % (Auto) Avery % (Auto) Eos % (Auto) Baso % (Auto) Lymph # Avery # Eos # Baso # Seg Neutrophils % Seg Neuts % (Manual) Lymphocytes % (Manual) Eosinophils % (Manual) Seg Neutrophils # Lymphocytes # (Manual) Eosinophils # (Manual) PT INR D-Dimer POC ABG pH POC ABG pCO2 POC ABG pO2 ABG pO2 ABG HCO3 ABG Base Excess ABG Hemoglobin Oxyhemoglobin Sodium Potassium Chloride Carbon Dioxide BUN Creatinine Glucose POC Glucose 169 H 171 H Calcium Phosphorus Magnesium ALT Alkaline Phosphatase Total Creatine Kinase CK-MB (CK-2) Rel Index Troponin T Albumin LDL Cholesterol Direct PTH Intact Salicylates Acetaminophen Crossmatch See Detail 05/05/19 05/05/1905/05/19 05:26 05:36 11:48 WBC 12.6 H RBC 2.73 L Hgb 6.9 L Hct 22.3 L MCV 82 L MCH 25 L MCHC 31 L RDW 21.0 H Plt Count Lymph % (Auto) 8.9 L Avery % (Auto) Eos % (Auto) Baso % (Auto) Lymph # 1.1 L Avery # 0.9 H Eos # Baso # Seg Neutrophils % 80.7 H Seg Neuts % (Manual) Lymphocytes % (Manual) Eosinophils % (Manual) Seg Neutrophils # 10.2 H Lymphocytes # (Manual) Eosinophils # (Manual) PT INR D-Dimer POC ABG pH POC ABG pCO2 POC ABG pO2 ABG pO2 ABG HCO3 ABG Base Excess ABG Hemoglobin Oxyhemoglobin Sodium Potassium Chloride Carbon Dioxide BUN Creatinine Glucose POC Glucose 153 H 173 H Calcium Phosphorus Magnesium ALT Alkaline Phosphatase Total Creatine Kinase CK-MB (CK-2) Rel Index Troponin T Albumin LDL Cholesterol Direct PTH Intact Salicylates Acetaminophen Crossmatch 05/05/19 05/06/19 05/06/19 16:42 02:24 06:12 WBC RBC Hgb Hct MCV MCH MCHC RDW Plt Count Lymph % (Auto) Avery % (Auto) Eos % (Auto) Baso % (Auto) Lymph # Avery # Eos # Baso # Seg Neutrophils % Seg Neuts % (Manual) Lymphocytes % (Manual) Eosinophils % (Manual) Seg Neutrophils # Lymphocytes # (Manual) Eosinophils # (Manual) PT INR D-Dimer POC ABG pH POC ABG pCO2 POC ABG pO2 ABG pO2 ABG HCO3 ABG Base Excess ABG Hemoglobin Oxyhemoglobin Sodium Potassium Chloride Carbon Dioxide BUN Creatinine Glucose POC Glucose 126 H 138 H 151 H Calcium Phosphorus Magnesium ALT Alkaline Phosphatase Total Creatine Kinase CK-MB (CK-2) Rel Index Troponin T Albumin LDL Cholesterol Direct PTH Intact Salicylates Acetaminophen Crossmatch 05/06/19 05/06/19 05/06/19 08:15 16:48 23:16 WBC 11.8 H RBC 2.72 L Hgb 6.7 L Hct 21.7 L MCV 80 L MCH 25 L MCHC 31 L RDW 20.9 H Plt Count Lymph % (Auto) Avery % (Auto) Eos % (Auto) Baso % (Auto) Lymph # Avery # Eos # Baso # Seg Neutrophils % Seg Neuts % (Manual) Lymphocytes % (Manual) Eosinophils % (Manual) Seg Neutrophils # Lymphocytes # (Manual) Eosinophils # (Manual) PT INR D-Dimer POC ABG pH POC ABG pCO2 POC ABG pO2 ABG pO2 ABG HCO3 ABG Base Excess ABG Hemoglobin Oxyhemoglobin Sodium Potassium Chloride Carbon Dioxide BUN Creatinine Glucose POC Glucose 153 H 143 H Calcium Phosphorus Magnesium ALT Alkaline Phosphatase Total Creatine Kinase CK-MB (CK-2) Rel Index Troponin T Albumin LDL Cholesterol Direct PTH Intact Salicylates Acetaminophen Crossmatch 05/07/19 05/07/19 05/07/19 06:00 06:30 12:33 WBC RBC 3.53 L Hgb 9.1 L Hct 28.6 L D MCV 81 L MCH 26 L MCHC RDW 19.1 H Plt Count Lymph % (Auto) 9.6 L Avery % (Auto) Eos % (Auto) 4.8 H Baso % (Auto) Lymph # 1.1 L Avery # Eos # 0.5 H Baso # Seg Neutrophils % 77.8 H Seg Neuts % (Manual) Lymphocytes % (Manual) Eosinophils % (Manual) Seg Neutrophils # 8.6 H Lymphocytes # (Manual) Eosinophils # (Manual) PT INR D-Dimer POC ABG pH POC ABG pCO2 POC ABG pO2 ABG pO2 ABG HCO3 ABG Base Excess ABG Hemoglobin Oxyhemoglobin Sodium Potassium Chloride Carbon Dioxide BUN Creatinine Glucose POC Glucose 122 H 140 H Calcium Phosphorus Magnesium ALT Alkaline Phosphatase Total Creatine Kinase CK-MB (CK-2) Rel Index Troponin T Albumin LDL Cholesterol Direct PTH Intact Salicylates Acetaminophen Crossmatch 05/07/19 05/07/19 05/08/19 16:41 23:55 05:10 WBC 11.6 H RBC 3.54 L Hgb 9.1 L Hct 29.1 L MCV 82 L MCH 26 L MCHC 31 L RDW 19.6 H Plt Count Lymph % (Auto) 6.6 L Avery % (Auto) Eos % (Auto) Baso % (Auto) 1.9 H Lymph # 0.8 L Avery # Eos # Baso # 0.2 H Seg Neutrophils % 82.6 H Seg Neuts % (Manual) Lymphocytes % (Manual) Eosinophils % (Manual) Seg Neutrophils # 9.6 H Lymphocytes # (Manual) Eosinophils # (Manual) PT INR D-Dimer POC ABG pH POC ABG pCO2 POC ABG pO2 ABG pO2 ABG HCO3 ABG Base Excess ABG Hemoglobin Oxyhemoglobin Sodium Potassium Chloride Carbon Dioxide BUN Creatinine Glucose POC Glucose 143 H 153 H Calcium Phosphorus Magnesium ALT Alkaline Phosphatase Total Creatine Kinase CK-MB (CK-2) Rel Index Troponin T Albumin LDL Cholesterol Direct PTH Intact Salicylates Acetaminophen Crossmatch 05/08/19 05/08/19 05/09/19 06:09 16:55 03:27 WBC RBC Hgb Hct MCV MCH MCHC RDW Plt Count Lymph % (Auto) Avery % (Auto) Eos % (Auto) Baso % (Auto) Lymph # Avery # Eos # Baso # Seg Neutrophils % Seg Neuts % (Manual) Lymphocytes % (Manual) Eosinophils % (Manual) Seg Neutrophils # Lymphocytes # (Manual) Eosinophils # (Manual) PT INR D-Dimer POC ABG pH POC ABG pCO2 POC ABG pO2 ABG pO2 ABG HCO3 ABG Base Excess ABG Hemoglobin Oxyhemoglobin Sodium Potassium Chloride Carbon Dioxide BUN Creatinine Glucose POC Glucose 204 H 196 H 175 H Calcium Phosphorus Magnesium ALT Alkaline Phosphatase Total Creatine Kinase CK-MB (CK-2) Rel Index Troponin T Albumin LDL Cholesterol Direct PTH Intact Salicylates Acetaminophen Crossmatch 05/09/19 05/09/19 05/09/19 06:00 11:00 12:41 WBC 12.0 H RBC Hgb 9.7 L Hct 30.2 L MCV 83 L MCH 26 L MCHC RDW 20.1 H Plt Count Lymph % (Auto) 7.4 L Avery % (Auto) 7.6 H Eos % (Auto) Baso % (Auto) Lymph # 0.9 L Avery # 0.9 H Eos # Baso # Seg Neutrophils % 80.7 H Seg Neuts % (Manual) Lymphocytes % (Manual) Eosinophils % (Manual) Seg Neutrophils # 9.7 H Lymphocytes # (Manual) Eosinophils # (Manual) PT INR D-Dimer POC ABG pH POC ABG pCO2 POC ABG pO2 ABG pO2 ABG HCO3 ABG Base Excess ABG Hemoglobin Oxyhemoglobin Sodium Potassium Chloride Carbon Dioxide BUN Creatinine Glucose POC Glucose 172 H 168 H Calcium Phosphorus Magnesium ALT Alkaline Phosphatase Total Creatine Kinase CK-MB (CK-2) Rel Index Troponin T Albumin LDL Cholesterol Direct PTH Intact Salicylates Acetaminophen Crossmatch 05/09/19 05/10/19 05/10/19 17:45 01:26 06:07 WBC RBC Hgb Hct MCV MCH MCHC RDW Plt Count Lymph % (Auto) Avery % (Auto) Eos % (Auto) Baso % (Auto) Lymph # Avery # Eos # Baso # Seg Neutrophils % Seg Neuts % (Manual) Lymphocytes % (Manual) Eosinophils % (Manual) Seg Neutrophils # Lymphocytes # (Manual) Eosinophils # (Manual) PT INR D-Dimer POC ABG pH POC ABG pCO2 POC ABG pO2 ABG pO2 ABG HCO3 ABG Base Excess ABG Hemoglobin Oxyhemoglobin Sodium Potassium Chloride Carbon Dioxide BUN Creatinine Glucose POC Glucose 167 H 174 H 179 H Calcium Phosphorus Magnesium ALT Alkaline Phosphatase Total Creatine Kinase CK-MB (CK-2) Rel Index Troponin T Albumin LDL Cholesterol Direct PTH Intact Salicylates Acetaminophen Crossmatch 05/10/19 05/10/19 06:45 12:31 WBC RBC Hgb Hct MCV MCH MCHC RDW Plt Count Lymph % (Auto) Avery % (Auto) Eos % (Auto) Baso % (Auto) Lymph # Avery # Eos # Baso # Seg Neutrophils % Seg Neuts % (Manual) Lymphocytes % (Manual) Eosinophils % (Manual) Seg Neutrophils # Lymphocytes # (Manual) Eosinophils # (Manual) PT INR D-Dimer POC ABG pH POC ABG pCO2 POC ABG pO2 ABG pO2 ABG HCO3 ABG Base Excess ABG Hemoglobin Oxyhemoglobin Sodium 134 L Potassium Chloride 90.2 L Carbon Dioxide BUN 82 H Creatinine 4.1 H Glucose 195 H POC Glucose 201 H Calcium Phosphorus Magnesium ALT Alkaline Phosphatase Total Creatine Kinase CK-MB (CK-2) Rel Index Troponin T Albumin LDL Cholesterol Direct PTH Intact Salicylates Acetaminophen Crossmatch
[2019-05-11] MEDS: INSULIN REGULAR, HUMAN 100 UNITS/1 ML SUB-Q SCH ×4 (02:04→18:43)
[2019-05-11] MEDS: SODIUM HYPOCHLORITE, DAKIN'S 1/2 STRENGTH (0.25%) 473 ML TOPICAL SOLN TP SCH ×3 (02:43→23:45)
[2019-05-11] MEDS: IPRATROPIUM/ALBUTEROL SULFATE 3 ML AMPUL.NEB IH SCH ×3 (08:07→20:29)
[2019-05-11] MEDS: risperiDONE 1 MG TAB PO SCH (09:08)
[2019-05-11] MEDS: SERTRALINE 100 MG TAB PO SCH (09:08)
[2019-05-11] MEDS: FAMOTIDINE 20 MG TAB PO SCH (09:08)
--- NOTE | 2019-05-11 10:59 | Progress Note ---
Assessment and Plan - Patient Problems (1) ESRD (end stage renal disease) on dialysis Current Visit: Yes Status: Chronic Plan to address problem: End stage renal disease : - access: Left arm AVG Continue hemodialysis Saturday (2) Diabetes mellitus, insulin dependent (IDDM), uncontrolled Current Visit: No Status: Acute Qualifiers: Glycemic state: with hyperglycemia Qualified Code(s): E10.65 - Type 1 diab etes mellitus with hyperglycemia Plan to address problem: DM type II uncontrolled Monitor Fingersticks (3) Anemia in chronic kidney disease, on chronic dialysis Current Visit: Yes Status: Acute Plan to address problem: Anemia of chronic kidney disease hemoglobin 8.8g/dl We'll give Epogen Monitor CBC (4) Hypertension Current Visit: Yes Status: Acute Qualifiers: Hypertension type: essential hypertension Qualified Code(s): I10 - Essential (primary) hypertension Plan to address problem: Hypertension controlled currently on Prn antihypertensives. Monitor blood pressure (5) Acute hypoxemic respiratory failure Current Visit: Yes Status: Acute Plan to address problem: Patient has tracheostomy with Tpiece in place. Chest x-ray reviewed with patchy opacities upper lung lynn Cultures obtained with Acinetobacter completed treatment with antibiotics. Ultrafiltration limited by hypotension repeat CXR with improvement in lung aeration. Subjective Principal diagnosis: Respiratory failure, acute on chronic systolic HF, ESRD Interval history: 63 year old Gentleman with medical history significant for ESRD on hemodialysis at [facility] on Saturday, Saturday and Saturday. via a left arm AVG admitted with acute respiratory failure; and hypotension prolonged hospital course received antibiotics for acinetobacter infection and s/p prolonged need for ventilation requiring Tracheostomy with T piece attached. Patient seen today has tracheostomy no lower extremity edema. continue HD MWF Objective - Vital Signs Vital signs: Vital Signs - 12hr 05/11/19 05/11/19 05/11/19 00:00 03:28 04:00 Temperature 99.9 F H 98.5 F Pulse Rate 118 H 69 Pulse Rate [ Anterior Bilateral Throughout] Respiratory 20 20 Rate Respiratory Rate [Anterior Bilateral Throughout] Blood Pressure 123/65 127/62 O2 Sat by Pulse 100 90 Oximetry O2 Sat by Pulse Oximetry [ Anterior Bilateral Throughout] O2 Sat by Pulse Oximetry [ Assessment] 05/11/19 05/11/19 05/11/19 08:00 08:15 08:39 Temperature 98.8 F Pulse Rate 105 H Pulse Rate [ 89 Anterior Bilateral Throughout] Respiratory 18 Rate Respiratory 16 Rate [Anterior Bilateral Throughout] Blood Pressure 114/55 O2 Sat by Pulse 91 Oximetry O2 Sat by Pulse Oximetry [ Anterior Bilateral Throughout] O2 Sat by Pulse 100 Oximetry [ Assessment] 05/11/19 05/11/19 10:00 10:20 Temperature 99.1 F Pulse Rate 89 Pulse Rate [ Anterior Bilateral Throughout] Respiratory 20 Rate Respiratory Rate [Anterior Bilateral Throughout] Blood Pressure 96/53 O2 Sat by Pulse 100 Oximetry O2 Sat by Pulse 100 Oximetry [ Anterior Bilateral Throughout] O2 Sat by Pulse Oximetry [ Assessment] - General Appearance General appearance: chronically ill, frail EENT: ATNC, PERRL, mucous membranes moist Neck: no JVD Respiratory: Present: Clear to Ascultation, Decreased Breath Sounds Cardiology: regular, S1S2 Gastrointestinal: normal, normoactive bowel sounds Integumentary: no rash Neurologic: alert and oriented x3, confused, CN 3-12 intact Psychiatric: depressed - Lab 05/09/19 11:00 05/10/19 06:45 Most recent lab results ABG pH 7.424 pH Units (7.350-7.450) 03/19/19 04:23 ABG pCO2 48.0 mm Hg 03/19/19 04:23 ABG pO2 78.3 mm Hg (80.0-90.0) L 03/19/19 04:23 ABG HCO3 30.7 mmol/L (20.0-26.0) H 03/19/19 04:23 ABG O2 Saturation 97.0 % (95.0-99.0) 03/19/19 04:23 Calcium 10.2 mg/dL (8.4-10.2) 05/10/19 06:45 Phosphorus 4.30 mg/dL (2.5-4.5) D 03/31/19 10:26 Magnesium 2.70 mg/dL (1.7-2.3) H 03/30/19 10:13 - Imaging Chest x-ray: image reviewed (i reviewed CXR with no edema. ) Medications & Allergies - Medications Allergies/Adverse Reactions: Allergies haloperidol [From Haldol] Adverse Reaction (Verified 03/13/18 12:10) Unknown haloperidol lactate [From Haldol] Adverse Reaction (Verified 03/13/18 12:10) Unknown Home Medications: Home Medications Medication Instructions Recorded Confirmed Last Taken Type risperiDONE [RisperDAL] 1 mg PO QAM 03/13/18 02/21/19 Unknown History Sertraline [Zoloft] 100 mg PO QDAY 08/26/18 02/21/19 Unknown History Polyethylene Glycol 3350 [Miralax 17 gm PO QDAY #30 packet 11/05/18 02/21/19 Unknown Rx 3350] Aspirin EC [Halfprin EC] 81 mg PO DAILY #30 11/19/18 02/21/19 Unknown Rx Docusate Sodium [Colace CAP] 100 mg PO BID #60 11/19/18 02/21/19 Unknown Rx Folic Acid [Folvite] 1 mg PO DAILY #30 tab 11/19/18 02/21/19 Unknown Rx Famotidine [Pepcid] 20 mg PO DAILY tablet 12/08/18 02/21/19 Unknown Rx Gabapentin [Neurontin] 100 mg PO QHS capsule 12/08/18 02/21/19 Unknown Rx Metoprolol [Lopressor TAB] 50 mg PO BID 30 Days tablet 12/08/18 02/21/19 Unknown Rx Sevelamer Carbonate [Renvela] 800 mg PO TIDWM tablet 12/08/18 02/21/19 Unknown Rx hydrALAZINE [Apresoline TAB] 100 mg PO Q8HR #120 tablet 12/08/18 02/21/19 Unknown Rx Acetaminophen [Acetaminophen TAB] 650 mg PO Q12H PRN 12/15/18 02/21/19 Unknown History Glucagon,Human Recombinant 1 mg IJ Q15MIN PRN 12/15/18 02/21/19 Unknown History [Glucagon Emergency Kit] Insulin Aspart [NovoLOG 100 See Protocol SQ QWEEK 12/15/18 02/21/19 Unknown History UNITS/ML VIAL] Active Medications: Generic Name Dose Route Start Last Admin Trade Name Freq PRN Reason Stop Dose Admin Albuterol/Ipratropium 1 ampul 02/24/19 20:00 05/11/19 08:07 Duoneb *Not For Prn Use* IH 1 ampul TIDRT SANCHEZ Administration Lipase/Protease/Amylase 1 each 04/10/19 15:16 Pancrejewel Barrientos 10,500 Unit FEEDTUBE PRN PRN For Clogged Feeding Tube Epoetin Solitario 20,000 unit 03/24/19 11:17 10/18/19 13:09 Procrit IV 20,000 unit UMA PRN Administration hemodialysis Famotidine 20 mg 02/23/19 10:00 05/11/19 09:08 Pepcid PO 20 mg DAILY SANCHEZ Administration Insulin Human Regular 0 units 02/26/19 12:00 05/11/19 07:40 Humulin R SUB-Q Not Given Q6HR [facility] Protocol Metoprolol Tartrate 2.5 mg 02/28/19 12:06 03/15/19 05:15 Lopressor IV 2.5 mg Q4HR PRN Administration Tachycardia Risperidone 1 mg 02/25/19 13:00 05/11/19 09:08 Risperdal PO 1 mg DAILY SANCHEZ Administration Sertraline HCl 100 mg 02/25/19 13:00 05/11/19 09:08 Zoloft PO 100 mg DAILY SANCHEZ Administration Simple Syrup 15 ml 04/10/19 15:16 Simple Syrup FEEDTUBE PRN PRN Hypoglycemia Simple Syrup 30 ml 04/10/19 15:16 Simple Syrup FEEDTUBE PRN PRN Hypoglycemia Sodium Bicarbonate 325 mg 04/10/19 15:16 Sodium Bicarbonate FEEDTUBE PRN PRN For Clogged Feeding Tube Sodium Hypochlorite 1 applic 04/01/19 13:00 05/11/19 09:08 Dakin's Half Strength TP 1 applicatio BID SANCHEZ Administration
--- NOTE | 2019-05-11 12:14 | Progress Note ---
Assessment and Plan 63 y/o male with multiple medical issues admitted with altered mental status, acute respiratory failure requiring mechanical ventilation 1. Continue capping trials. Nasal cannula therapy. 2. HD per renal 3. PT/OT if possible 4. CM working on placement Subjective Date of service: 05/11/19 Principal diagnosis: Respiratory failure, acute on chronic systolic HF, ESRD Interval history: No acute events. IN HD. Objective Vital Signs - 12hr 05/11/19 05/11/19 05/11/19 03:28 04:00 08:00 Temperature 98.5 F Pulse Rate 69 Pulse Rate [ 89 Anterior Bilateral Throughout] Respiratory 20 Rate Respiratory 16 Rate [Anterior Bilateral Throughout] Blood Pressure 127/62 O2 Sat by Pulse 90 Oximetry O2 Sat by Pulse Oximetry [ Anterior Bilateral Throughout] O2 Sat by Pulse Oximetry [ Assessment] 05/11/19 05/11/19 05/11/19 08:15 08:39 10:00 Temperature 98.8 F Pulse Rate 105 H Pulse Rate [ Anterior Bilateral Throughout] Respiratory 18 Rate Respiratory Rate [Anterior Bilateral Throughout] Blood Pressure 114/55 O2 Sat by Pulse 91 100 Oximetry O2 Sat by Pulse Oximetry [ Anterior Bilateral Throughout] O2 Sat by Pulse 100 Oximetry [ Assessment] 05/11/19 05/11/19 05/11/19 10:20 10:30 10:45 Temperature 99.1 F Pulse Rate 89 95 H 94 H Pulse Rate [ Anterior Bilateral Throughout] Respiratory 20 Rate Respiratory Rate [Anterior Bilateral Throughout] Blood Pressure 96/53 91/56 94/51 O2 Sat by Pulse Oximetry O2 Sat by Pulse 100 Oximetry [ Anterior Bilateral Throughout] O2 Sat by Pulse Oximetry [ Assessment] 05/11/19 05/11/19 05/11/19 11:00 11:15 11:30 Temperature Pulse Rate 100 H 100 H 102 H Pulse Rate [ Anterior Bilateral Throughout] Respiratory Rate Respiratory Rate [Anterior Bilateral Throughout] Blood Pressure 106/62 100/56 93/53 O2 Sat by Pulse Oximetry O2 Sat by Pulse Oximetry [ Anterior Bilateral Throughout] O2 Sat by Pulse Oximetry [ Assessment] 05/11/19 11:45 Temperature Pulse Rate 99 H Pulse Rate [ Anterior Bilateral Throughout] Respiratory Rate Respiratory Rate [Anterior Bilateral Throughout] Blood Pressure 99/48 O2 Sat by Pulse Oximetry O2 Sat by Pulse Oximetry [ Anterior Bilateral Throughout] O2 Sat by Pulse Oximetry [ Assessment] Constitutional: no acute distress, alert Eyes: non-icteric ENT: oropharynx moist Neck: supple Effort: normal Ascultation: Bilateral: diminished breath sounds, other (coarse BS bilaterally) Percussion: Bilateral: not dull Cardiovascular: regular rate and rhythm (no mrg) Gastrointestinal: normoactive bowel sounds, soft, non-tender, non-distended, other (ostomy in place, brown stool) Extremities: no cyanosis, no edema, pink and warm Neurologic: other (mild weakness LUE, o/w nonfocal) Psychiatric: other (unable to assess) CBC and BMP: 05/09/19 11:00 05/10/19 06:45 ABG, PT/INR, D-dimer: ABG POC ABG pH 7.510 (7.35-7.45) H 03/18/19 06:38 ABG pH 7.424 pH Units (7.350-7.450) 03/19/19 04:23 POC ABG pCO2 38.9 (35-45) 03/18/19 06:38 ABG pCO2 48.0 mm Hg 03/19/19 04:23 POC ABG pO2 164 (80-105) H 03/18/19 06:38 ABG pO2 78.3 mm Hg (80.0-90.0) L 03/19/19 04:23 POC ABG HCO3 31.0 (22-26 mml/L) 03/18/19 06:38 POC ABG Total CO2 32 (23-27mmol/L) 03/18/19 06:38 POC ABG O2 Sat 100 03/18/19 06:38 ABG O2 Saturation 97.0 % (95.0-99.0) 03/19/19 04:23 PT/INR, D-dimer PT 16.3 Sec. (12.2-14.9) H 03/01/19 09:39 INR 1.35 (0.87-1.13) H 03/01/19 09:39 D-Dimer 2987.82 ng/mlDDU (0-234) H 02/22/19 05:54 Abnormal lab findings: Abnormal Labs 02/21/19 02/21/19 02/21/19 18:30 18:30 18:30 WBC RBC 3.26 L Hgb 8.8 L Hct 29.0 L MCV MCH 27 L MCHC 30 L RDW 19.1 H Plt Count Lymph % (Auto) 6.1 L [place] % (Auto) Eos % (Auto) Baso % (Auto) Lymph # 0.4 L [place] # Eos # Baso # Seg Neutrophils % 86.2 H Seg Neuts % (Manual) Lymphocytes % (Manual) Eosinophils % (Manual) Seg Neutrophils # Lymphocytes # (Manual) Eosinophils # (Manual) PT INR D-Dimer POC ABG pH POC ABG pCO2 POC ABG pO2 ABG pO2 ABG HCO3 ABG Base Excess ABG Hemoglobin Oxyhemoglobin Sodium 133 L Potassium 3.3 L Chloride 93.1 L Carbon Dioxide 33 H BUN Creatinine Glucose 161 H POC Glucose Calcium Phosphorus Magnesium ALT Alkaline Phosphatase 136 H Total Creatine Kinase 37 L CK-MB (CK-2) Rel Index Troponin T 0.192 H* Albumin 2.4 L LDL Cholesterol Direct 36 L PTH Intact Salicylates Acetaminophen Crossmatch 02/21/19 02/21/19 02/21/19 18:42 20:04 20:04 WBC RBC Hgb Hct MCV MCH MCHC RDW Plt Count Lymph % (Auto) [place] % (Auto) Eos % (Auto) Baso % (Auto) Lymph # [place] # Eos # Baso # Seg Neutrophils % Seg Neuts % (Manual) Lymphocytes % (Manual) Eosinophils % (Manual) Seg Neutrophils # Lymphocytes # (Manual) Eosinophils # (Manual) PT INR D-Dimer POC ABG pH POC ABG pCO2 56.7 H POC ABG pO2 291 H ABG pO2 ABG HCO3 ABG Base Excess ABG Hemoglobin Oxyhemoglobin Sodium Potassium Chloride Carbon Dioxide BUN Creatinine Glucose POC Glucose Calcium Phosphorus Magnesium ALT Alkaline Phosphatase Total Creatine Kinase CK-MB (CK-2) Rel Index Troponin T Albumin LDL Cholesterol Direct PTH Intact Salicylates < 0.3 L Acetaminophen < 5.0 L Crossmatch 02/21/19 02/22/19 02/22/19 22:35 03:42 03:42 WBC RBC 3.20 L Hgb 8.8 L Hct 27.6 L MCV MCH MCHC RDW 18.9 H Plt Count Lymph % (Auto) 7.4 L [place] % (Auto) Eos % (Auto) Baso % (Auto) Lymph # 0.7 L [place] # Eos # Baso # Seg Neutrophils % 84.7 H Seg Neuts % (Manual) Lymphocytes % (Manual) Eosinophils % (Manual) Seg Neutrophils # Lymphocytes # (Manual) Eosinophils # (Manual) PT INR D-Dimer POC ABG pH POC ABG pCO2 POC ABG pO2 ABG pO2 ABG HCO3 ABG Base Excess ABG Hemoglobin Oxyhemoglobin Sodium 134 L Potassium 2.6 L* D Chloride Carbon Dioxide BUN Creatinine Glucose POC Glucose Calcium Phosphorus Magnesium ALT Alkaline Phosphatase Total Creatine Kinase CK-MB (CK-2) Rel Index 5.2 H Troponin T 0.202 H* Albumin LDL Cholesterol Direct PTH Intact Salicylates Acetaminophen Crossmatch 02/22/19 02/22/19 02/22/19 03:42 05:54 09:04 WBC RBC Hgb Hct MCV MCH MCHC RDW Plt Count Lymph % (Auto) [place] % (Auto) Eos % (Auto) Baso % (Auto) Lymph # [place] # Eos # Baso # Seg Neutrophils % Seg Neuts % (Manual) Lymphocytes % (Manual) Eosinophils % (Manual) Seg Neutrophils # Lymphocytes # (Manual) Eosinophils # (Manual) PT INR D-Dimer 2987.82 H POC ABG pH 7.451 H POC ABG pCO2 POC ABG pO2 ABG pO2 ABG HCO3 ABG Base Excess ABG Hemoglobin Oxyhemoglobin Sodium Potassium Chloride Carbon Dioxide BUN Creatinine Glucose POC Glucose Calcium Phosphorus Magnesium ALT Alkaline Phosphatase Total Creatine Kinase CK-MB (CK-2) Rel Index 5.7 H Troponin T 0.193 H* Albumin LDL Cholesterol Direct PTH Intact Salicylates Acetaminophen Crossmatch 02/22/19 02/22/19 02/23/19 10:36 23:56 00:52 WBC RBC Hgb Hct MCV MCH MCHC RDW Plt Count Lymph % (Auto) [place] % (Auto) Eos % (Auto) Baso % (Auto) Lymph # [place] # Eos # Baso # Seg Neutrophils % Seg Neuts % (Manual) Lymphocytes % (Manual) Eosinophils % (Manual) Seg Neutrophils # Lymphocytes # (Manual) Eosinophils # (Manual) PT INR D-Dimer POC ABG pH POC ABG pCO2 POC ABG pO2 ABG pO2 ABG HCO3 ABG Base Excess ABG Hemoglobin Oxyhemoglobin Sodium Potassium 3.1 L Chloride Carbon Dioxide BUN Creatinine Glucose POC Glucose 58 L 111 H Calcium Phosphorus Magnesium ALT Alkaline Phosphatase Total Creatine Kinase CK-MB (CK-2) Rel Index Troponin T Albumin LDL Cholesterol Direct PTH Intact Salicylates Acetaminophen Crossmatch 02/23/19 02/23/19 02/23/19 05:00 06:35 14:26 WBC RBC Hgb Hct MCV MCH MCHC RDW Plt Count Lymph % (Auto) [place] % (Auto) Eos % (Auto) Baso % (Auto) Lymph # [place] # Eos # Baso # Seg Neutrophils % Seg Neuts % (Manual) Lymphocytes % (Manual) Eosinophils % (Manual) Seg Neutrophils # Lymphocytes # (Manual) Eosinophils # (Manual) PT INR D-Dimer POC ABG pH POC ABG pCO2 POC ABG pO2 ABG pO2 ABG HCO3 ABG Base Excess ABG Hemoglobin Oxyhemoglobin Sodium 135 L Potassium 3.1 L Chloride Carbon Dioxide BUN 21 H Creatinine 2.0 H Glucose 57 L POC Glucose 64 L 62 L Calcium Phosphorus Magnesium ALT Alkaline Phosphatase Total Creatine Kinase CK-MB (CK-2) Rel Index Troponin T Albumin LDL Cholesterol Direct PTH Intact Salicylates Acetaminophen Crossmatch 02/24/19 02/24/19 02/24/19 02:11 04:12 04:55 WBC RBC 2.84 L Hgb 7.8 L Hct 24.5 L MCV MCH MCHC RDW 19.5 H Plt Count Lymph % (Auto) [place] % (Auto) Eos % (Auto) Baso % (Auto) Lymph # [place] # Eos # Baso # Seg Neutrophils % Seg Neuts % (Manual) Lymphocytes % (Manual) Eosinophils % (Manual) Seg Neutrophils # Lymphocytes # (Manual) Eosinophils # (Manual) PT INR D-Dimer POC ABG pH 7.511 H POC ABG pCO2 33.9 L POC ABG pO2 62 L ABG pO2 ABG HCO3 ABG Base Excess ABG Hemoglobin Oxyhemoglobin Sodium Potassium Chloride Carbon Dioxide BUN Creatinine Glucose POC Glucose 69 L Calcium Phosphorus Magnesium ALT Alkaline Phosphatase Total Creatine Kinase CK-MB (CK-2) Rel Index Troponin T Albumin LDL Cholesterol Direct PTH Intact Salicylates Acetaminophen Crossmatch 02/24/19 02/24/19 02/25/19 04:55 05:41 04:45 WBC RBC Hgb Hct MCV MCH MCHC RDW Plt Count Lymph % (Auto) [place] % (Auto) Eos % (Auto) Baso % (Auto) Lymph # [place] # Eos # Baso # Seg Neutrophils % Seg Neuts % (Manual) Lymphocytes % (Manual) Eosinophils % (Manual) Seg Neutrophils # Lymphocytes # (Manual) Eosinophils # (Manual) PT INR D-Dimer POC ABG pH 7.466 H POC ABG pCO2 POC ABG pO2 75 L ABG pO2 ABG HCO3 ABG Base Excess ABG Hemoglobin Oxyhemoglobin Sodium Potassium Chloride Carbon Dioxide BUN Creatinine 1.8 H Glucose 73 L POC Glucose 127 H Calcium Phosphorus Magnesium ALT Alkaline Phosphatase Total Creatine Kinase CK-MB (CK-2) Rel Index Troponin T Albumin LDL Cholesterol Direct PTH Intact Salicylates Acetaminophen Crossmatch 02/25/19 02/25/19 02/26/19 16:34 21:33 03:45 WBC RBC 2.96 L Hgb 8.0 L Hct 25.8 L MCV MCH 27 L MCHC 31 L RDW 20.0 H Plt Count Lymph % (Auto) [place] % (Auto) Eos % (Auto) Baso % (Auto) Lymph # [place] # Eos # Baso # Seg Neutrophils % Seg Neuts % (Manual) Lymphocytes % (Manual) Eosinophils % (Manual) Seg Neutrophils # Lymphocytes # (Manual) Eosinophils # (Manual) PT INR D-Dimer POC ABG pH POC ABG pCO2 POC ABG pO2 ABG pO2 ABG HCO3 ABG Base Excess ABG Hemoglobin Oxyhemoglobin Sodium Potassium Chloride Carbon Dioxide BUN Creatinine Glucose POC Glucose 141 H 106 H Calcium Phosphorus Magnesium ALT Alkaline Phosphatase Total Creatine Kinase CK-MB (CK-2) Rel Index Troponin T Albumin LDL Cholesterol Direct PTH Intact Salicylates Acetaminophen Crossmatch 02/26/19 02/26/19 02/26/19 03:45 04:13 07:53 WBC RBC Hgb Hct MCV MCH MCHC RDW Plt Count Lymph % (Auto) [place] % (Auto) Eos % (Auto) Baso % (Auto) Lymph # [place] # Eos # Baso # Seg Neutrophils % Seg Neuts % (Manual) Lymphocytes % (Manual) Eosinophils % (Manual) Seg Neutrophils # Lymphocytes # (Manual) Eosinophils # (Manual) PT INR D-Dimer POC ABG pH 7.470 H POC ABG pCO2 POC ABG pO2 ABG pO2 ABG HCO3 ABG Base Excess ABG Hemoglobin Oxyhemoglobin Sodium Potassium Chloride Carbon Dioxide BUN Creatinine 1.8 H Glucose POC Glucose 110 H Calcium Phosphorus Magnesium ALT Alkaline Phosphatase Total Creatine Kinase CK-MB (CK-2) Rel Index Troponin T Albumin LDL Cholesterol Direct PTH Intact Salicylates Acetaminophen Crossmatch 02/26/19 02/26/19 02/27/19 11:56 17:43 00:12 WBC RBC Hgb Hct MCV MCH MCHC RDW Plt Count Lymph % (Auto) [place] % (Auto) Eos % (Auto) Baso % (Auto) Lymph # [place] # Eos # Baso # Seg Neutrophils % Seg Neuts % (Manual) Lymphocytes % (Manual) Eosinophils % (Manual) Seg Neutrophils # Lymphocytes # (Manual) Eosinophils # (Manual) PT INR D-Dimer POC ABG pH POC ABG pCO2 POC ABG pO2 ABG pO2 ABG HCO3 ABG Base Excess ABG Hemoglobin Oxyhemoglobin Sodium Potassium Chloride Carbon Dioxide BUN Creatinine Glucose POC Glucose 112 H 127 H 127 H Calcium Phosphorus Magnesium ALT Alkaline Phosphatase Total Creatine Kinase CK-MB (CK-2) Rel Index Troponin T Albumin LDL Cholesterol Direct PTH Intact Salicylates Acetaminophen Crossmatch 02/27/19 02/27/19 02/27/19 04:35 13:15 18:02 WBC RBC Hgb Hct MCV MCH MCHC RDW Plt Count Lymph % (Auto) [place] % (Auto) Eos % (Auto) Baso % (Auto) Lymph # [place] # Eos # Baso # Seg Neutrophils % Seg Neuts % (Manual) Lymphocytes % (Manual) Eosinophils % (Manual) Seg Neutrophils # Lymphocytes # (Manual) Eosinophils # (Manual) PT INR D-Dimer POC ABG pH 7.483 H POC ABG pCO2 POC ABG pO2 61 L ABG pO2 ABG HCO3 ABG Base Excess ABG Hemoglobin Oxyhemoglobin Sodium Potassium Chloride Carbon Dioxide BUN Creatinine Glucose POC Glucose 143 H 106 H Calcium Phosphorus Magnesium ALT Alkaline Phosphatase Total Creatine Kinase CK-MB (CK-2) Rel Index Troponin T Albumin LDL Cholesterol Direct PTH Intact Salicylates Acetaminophen Crossmatch 02/28/19 02/28/19 02/28/19 05:50 11:59 17:52 WBC RBC Hgb Hct MCV MCH MCHC RDW Plt Count Lymph % (Auto) [place] % (Auto) Eos % (Auto) Baso % (Auto) Lymph # [place] # Eos # Baso # Seg Neutrophils % Seg Neuts % (Manual) Lymphocytes % (Manual) Eosinophils % (Manual) Seg Neutrophils # Lymphocytes # (Manual) Eosinophils # (Manual) PT INR D-Dimer POC ABG pH POC ABG pCO2 POC ABG pO2 ABG pO2 ABG HCO3 ABG Base Excess ABG Hemoglobin Oxyhemoglobin Sodium Potassium Chloride Carbon Dioxide BUN Creatinine Glucose POC Glucose 134 H 128 H 142 H Calcium Phosphorus Magnesium ALT Alkaline Phosphatase Total Creatine Kinase CK-MB (CK-2) Rel Index Troponin T Albumin LDL Cholesterol Direct PTH Intact Salicylates Acetaminophen Crossmatch 02/28/19 03/01/19 03/01/19 23:13 05:40 09:39 WBC RBC Hgb Hct MCV MCH MCHC RDW Plt Count Lymph % (Auto) [place] % (Auto) Eos % (Auto) Baso % (Auto) Lymph # [place] # Eos # Baso # Seg Neutrophils % Seg Neuts % (Manual) Lymphocytes % (Manual) Eosinophils % (Manual) Seg Neutrophils # Lymphocytes # (Manual) Eosinophils # (Manual) PT 16.3 H INR 1.35 H D-Dimer POC ABG pH POC ABG pCO2 POC ABG pO2 ABG pO2 ABG HCO3 ABG Base Excess ABG Hemoglobin Oxyhemoglobin Sodium Potassium Chloride Carbon Dioxide BUN Creatinine Glucose POC Glucose 112 H 111 H Calcium Phosphorus Magnesium ALT Alkaline Phosphatase Total Creatine Kinase CK-MB (CK-2) Rel Index Troponin T Albumin LDL Cholesterol Direct PTH Intact Salicylates Acetaminophen Crossmatch 03/01/19 03/01/19 03/01/19 11:56 13:54 17:59 WBC RBC Hgb Hct MCV MCH MCHC RDW Plt Count Lymph % (Auto) [place] % (Auto) Eos % (Auto) Baso % (Auto) Lymph # [place] # Eos # Baso # Seg Neutrophils % Seg Neuts % (Manual) Lymphocytes % (Manual) Eosinophils % (Manual) Seg Neutrophils # Lymphocytes # (Manual) Eosinophils # (Manual) PT INR D-Dimer POC ABG pH POC ABG pCO2 POC ABG pO2 ABG pO2 ABG HCO3 ABG Base Excess ABG Hemoglobin Oxyhemoglobin Sodium Potassium Chloride Carbon Dioxide BUN 33 H Creatinine 2.8 H D Glucose 176 H POC Glucose 199 H 147 H Calcium Phosphorus Magnesium ALT Alkaline Phosphatase Total Creatine Kinase CK-MB (CK-2) Rel Index Troponin T Albumin LDL Cholesterol Direct PTH Intact Salicylates Acetaminophen Crossmatch 03/02/19 03/02/19 03/02/19 05:15 05:15 05:15 WBC RBC 2.73 L Hgb 7.4 L Hct 23.0 L MCV MCH 27 L MCHC RDW 19.9 H Plt Count Lymph % (Auto) [place] % (Auto) 7.9 H Eos % (Auto) 7.6 H Baso % (Auto) Lymph # 1.0 L [place] # Eos # 0.5 H Baso # Seg Neutrophils % Seg Neuts % (Manual) Lymphocytes % (Manual) Eosinophils % (Manual) Seg Neutrophils # Lymphocytes # (Manual) Eosinophils # (Manual) PT INR D-Dimer POC ABG pH POC ABG pCO2 POC ABG pO2 ABG pO2 ABG HCO3 ABG Base Excess ABG Hemoglobin Oxyhemoglobin Sodium Potassium Chloride Carbon Dioxide BUN 43 H Creatinine 3.2 H Glucose POC Glucose Calcium Phosphorus 2.30 L Magnesium ALT Alkaline Phosphatase Total Creatine Kinase CK-MB (CK-2) Rel Index Troponin T Albumin LDL Cholesterol Direct PTH Intact 267.6 H Salicylates Acetaminophen Crossmatch 03/02/19 03/02/19 03/03/19 12:32 18:20 13:30 WBC RBC Hgb Hct MCV MCH MCHC RDW Plt Count Lymph % (Auto) [place] % (Auto) Eos % (Auto) Baso % (Auto) Lymph # [place] # Eos # Baso # Seg Neutrophils % Seg Neuts % (Manual) Lymphocytes % (Manual) Eosinophils % (Manual) Seg Neutrophils # Lymphocytes # (Manual) Eosinophils # (Manual) PT INR D-Dimer POC ABG pH POC ABG pCO2 POC ABG pO2 ABG pO2 ABG HCO3 ABG Base Excess ABG Hemoglobin Oxyhemoglobin Sodium Potassium Chloride 97.3 L Carbon Dioxide BUN 26 H Creatinine 2.2 H Glucose 73 L POC Glucose 111 H 156 H Calcium Phosphorus Magnesium ALT Alkaline Phosphatase Total Creatine Kinase CK-MB (CK-2) Rel Index Troponin T Albumin LDL Cholesterol Direct PTH Intact Salicylates Acetaminophen Crossmatch 03/04/19 03/04/19 03/04/19 00:02 05:37 05:40 WBC RBC 2.63 L Hgb 7.2 L Hct 22.2 L MCV MCH MCHC RDW 20.2 H Plt Count Lymph % (Auto) 10.5 L [place] % (Auto) Eos % (Auto) 4.6 H Baso % (Auto) Lymph # 0.7 L [place] # Eos # Baso # Seg Neutrophils % 76.9 H Seg Neuts % (Manual) Lymphocytes % (Manual) Eosinophils % (Manual) Seg Neutrophils # Lymphocytes # (Manual) Eosinophils # (Manual) PT INR D-Dimer POC ABG pH POC ABG pCO2 POC ABG pO2 ABG pO2 ABG HCO3 ABG Base Excess ABG Hemoglobin Oxyhemoglobin Sodium Potassium Chloride Carbon Dioxide BUN Creatinine Glucose POC Glucose 136 H 123 H Calcium Phosphorus Magnesium ALT Alkaline Phosphatase Total Creatine Kinase CK-MB (CK-2) Rel Index Troponin T Albumin LDL Cholesterol Direct PTH Intact Salicylates Acetaminophen Crossmatch 03/04/19 03/04/19 03/04/19 05:40 11:39 23:20 WBC RBC Hgb Hct MCV MCH MCHC RDW Plt Count Lymph % (Auto) [place] % (Auto) Eos % (Auto) Baso % (Auto) Lymph # [place] # Eos # Baso # Seg Neutrophils % Seg Neuts % (Manual) Lymphocytes % (Manual) Eosinophils % (Manual) Seg Neutrophils # Lymphocytes # (Manual) Eosinophils # (Manual) PT INR D-Dimer POC ABG pH POC ABG pCO2 POC ABG pO2 ABG pO2 ABG HCO3 ABG Base Excess ABG Hemoglobin Oxyhemoglobin Sodium Potassium Chloride Carbon Dioxide BUN 34 H Creatinine 2.7 H Glucose 114 H POC Glucose 175 H 151 H Calcium Phosphorus Magnesium ALT Alkaline Phosphatase Total Creatine Kinase CK-MB (CK-2) Rel Index Troponin T Albumin LDL Cholesterol Direct PTH Intact Salicylates Acetaminophen Crossmatch 03/05/19 03/05/19 03/05/19 05:37 12:08 17:11 WBC RBC Hgb Hct MCV MCH MCHC RDW Plt Count Lymph % (Auto) [place] % (Auto) Eos % (Auto) Baso % (Auto) Lymph # [place] # Eos # Baso # Seg Neutrophils % Seg Neuts % (Manual) Lymphocytes % (Manual) Eosinophils % (Manual) Seg Neutrophils # Lymphocytes # (Manual) Eosinophils # (Manual) PT INR D-Dimer POC ABG pH POC ABG pCO2 POC ABG pO2 ABG pO2 ABG HCO3 ABG Base Excess ABG Hemoglobin Oxyhemoglobin Sodium Potassium Chloride Carbon Dioxide BUN Creatinine Glucose POC Glucose 134 H 135 H 135 H Calcium Phosphorus Magnesium ALT Alkaline Phosphatase Total Creatine Kinase CK-MB (CK-2) Rel Index Troponin T Albumin LDL Cholesterol Direct PTH Intact Salicylates Acetaminophen Crossmatch 03/06/19 03/06/19 03/06/19 00:16 13:05 18:09 WBC RBC Hgb Hct MCV MCH MCHC RDW Plt Count Lymph % (Auto) [place] % (Auto) Eos % (Auto) Baso % (Auto) Lymph # [place] # Eos # Baso # Seg Neutrophils % Seg Neuts % (Manual) Lymphocytes % (Manual) Eosinophils % (Manual) Seg Neutrophils # Lymphocytes # (Manual) Eosinophils # (Manual) PT INR D-Dimer POC ABG pH POC ABG pCO2 POC ABG pO2 ABG pO2 ABG HCO3 ABG Base Excess ABG Hemoglobin Oxyhemoglobin Sodium Potassium Chloride Carbon Dioxide BUN Creatinine Glucose POC Glucose 117 H 113 H 131 H Calcium Phosphorus Magnesium ALT Alkaline Phosphatase Total Creatine Kinase CK-MB (CK-2) Rel Index Troponin T Albumin LDL Cholesterol Direct PTH Intact Salicylates Acetaminophen Crossmatch 03/07/19 03/08/19 03/08/19 05:25 05:33 16:00 WBC RBC 2.44 L Hgb 6.6 L Hct 20.8 L MCV MCH 27 L MCHC RDW 19.2 H Plt Count Lymph % (Auto) [place] % (Auto) Eos % (Auto) 8.6 H Baso % (Auto) Lymph # 0.8 L [place] # Eos # 0.5 H Baso # Seg Neutrophils % 70.7 H Seg Neuts % (Manual) Lymphocytes % (Manual) Eosinophils % (Manual) Seg Neutrophils # Lymphocytes # (Manual) Eosinophils # (Manual) PT INR D-Dimer POC ABG pH POC ABG pCO2 POC ABG pO2 ABG pO2 ABG HCO3 ABG Base Excess ABG Hemoglobin Oxyhemoglobin Sodium Potassium Chloride Carbon Dioxide BUN Creatinine Glucose POC Glucose 106 H 108 H Calcium Phosphorus Magnesium ALT Alkaline Phosphatase Total Creatine Kinase CK-MB (CK-2) Rel Index Troponin T Albumin LDL Cholesterol Direct PTH Intact Salicylates Acetaminophen Crossmatch 03/08/19 03/08/19 03/08/19 16:00 18:38 Unknown WBC RBC Hgb Hct MCV MCH MCHC RDW Plt Count Lymph % (Auto) [place] % (Auto) Eos % (Auto) Baso % (Auto) Lymph # [place] # Eos # Baso # Seg Neutrophils % Seg Neuts % (Manual) Lymphocytes % (Manual) Eosinophils % (Manual) Seg Neutrophils # Lymphocytes # (Manual) Eosinophils # (Manual) PT INR D-Dimer POC ABG pH POC ABG pCO2 POC ABG pO2 ABG pO2 ABG HCO3 ABG Base Excess ABG Hemoglobin Oxyhemoglobin Sodium Potassium 5.4 H D Chloride Carbon Dioxide BUN 47 H Creatinine 2.6 H Glucose POC Glucose 123 H Calcium Phosphorus Magnesium ALT < 5 L Alkaline Phosphatase Total Creatine Kinase CK-MB (CK-2) Rel Index Troponin T Albumin 2.2 L LDL Cholesterol Direct PTH Intact Salicylates Acetaminophen Crossmatch See Detail 03/09/19 03/09/1903/09/19 10:48 12:28 13:53 WBC RBC 2.85 L Hgb 7.7 L Hct 24.2 L MCV MCH 27 L MCHC RDW 18.7 H Plt Count Lymph % (Auto) [place] % (Auto) Eos % (Auto) Baso % (Auto) Lymph # [place] # Eos # Baso # Seg Neutrophils % Seg Neuts % (Manual) Lymphocytes % (Manual) Eosinophils % (Manual) Seg Neutrophils # Lymphocytes # (Manual) Eosinophils # (Manual) PT INR D-Dimer POC ABG pH POC ABG pCO2 POC ABG pO2 ABG pO2 ABG HCO3 30.5 H ABG Base Excess 5.6 H ABG Hemoglobin 8.1 L Oxyhemoglobin 93.8 L Sodium Potassium Chloride Carbon Dioxide BUN Creatinine Glucose POC Glucose 114 H Calcium Phosphorus Magnesium ALT Alkaline Phosphatase Total Creatine Kinase CK-MB (CK-2) Rel Index Troponin T Albumin LDL Cholesterol Direct PTH Intact Salicylates Acetaminophen Crossmatch 03/09/19 03/09/19 03/10/19 17:58 23:53 12:01 WBC RBC Hgb Hct MCV MCH MCHC RDW Plt Count Lymph % (Auto) [place] % (Auto) Eos % (Auto) Baso % (Auto) Lymph # [place] # Eos # Baso # Seg Neutrophils % Seg Neuts % (Manual) Lymphocytes % (Manual) Eosinophils % (Manual) Seg Neutrophils # Lymphocytes # (Manual) Eosinophils # (Manual) PT INR D-Dimer POC ABG pH POC ABG pCO2 POC ABG pO2 ABG pO2 ABG HCO3 ABG Base Excess ABG Hemoglobin Oxyhemoglobin Sodium Potassium Chloride Carbon Dioxide BUN Creatinine Glucose POC Glucose 108 H 128 H 144 H Calcium Phosphorus Magnesium ALT Alkaline Phosphatase Total Creatine Kinase CK-MB (CK-2) Rel Index Troponin T Albumin LDL Cholesterol Direct PTH Intact Salicylates Acetaminophen Crossmatch 03/10/19 03/11/19 03/11/19 16:50 00:24 05:02 WBC RBC Hgb Hct MCV MCH MCHC RDW Plt Count Lymph % (Auto) [place] % (Auto) Eos % (Auto) Baso % (Auto) Lymph # [place] # Eos # Baso # Seg Neutrophils % Seg Neuts % (Manual) Lymphocytes % (Manual) Eosinophils % (Manual) Seg Neutrophils # Lymphocytes # (Manual) Eosinophils # (Manual) PT INR D-Dimer POC ABG pH POC ABG pCO2 POC ABG pO2 ABG pO2 ABG HCO3 ABG Base Excess ABG Hemoglobin Oxyhemoglobin Sodium Potassium Chloride Carbon Dioxide BUN Creatinine Glucose POC Glucose 147 H 123 H 120 H Calcium Phosphorus Magnesium ALT Alkaline Phosphatase Total Creatine Kinase CK-MB (CK-2) Rel Index Troponin T Albumin LDL Cholesterol Direct PTH Intact Salicylates Acetaminophen Crossmatch 03/11/19 03/11/19 03/11/19 11:56 12:20 18:37 WBC RBC Hgb Hct MCV MCH MCHC RDW Plt Count Lymph % (Auto) [place] % (Auto) Eos % (Auto) Baso % (Auto) Lymph # [place] # Eos # Baso # Seg Neutrophils % Seg Neuts % (Manual) Lymphocytes % (Manual) Eosinophils % (Manual) Seg Neutrophils # Lymphocytes # (Manual) Eosinophils # (Manual) PT INR D-Dimer POC ABG pH POC ABG pCO2 POC ABG pO2 ABG pO2 ABG HCO3 ABG Base Excess ABG Hemoglobin Oxyhemoglobin Sodium Potassium 5.2 H Chloride Carbon Dioxide BUN Creatinine Glucose POC Glucose 123 H 125 H Calcium Phosphorus Magnesium ALT Alkaline Phosphatase Total Creatine Kinase CK-MB (CK-2) Rel Index Troponin T Albumin LDL Cholesterol Direct PTH Intact Salicylates Acetaminophen Crossmatch 03/11/19 03/12/19 03/12/19 22:52 12:04 18:25 WBC RBC Hgb Hct MCV MCH MCHC RDW Plt Count Lymph % (Auto) Creek % (Auto) Eos % (Auto) Baso % (Auto) Lymph # Creek # Eos # Baso # Seg Neutrophils % Seg Neuts % (Manual) Lymphocytes % (Manual) Eosinophils % (Manual) Seg Neutrophils # Lymphocytes # (Manual) Eosinophils # (Manual) PT INR D-Dimer POC ABG pH POC ABG pCO2 POC ABG pO2 ABG pO2 ABG HCO3 ABG Base Excess ABG Hemoglobin Oxyhemoglobin Sodium Potassium Chloride Carbon Dioxide BUN Creatinine Glucose POC Glucose 110 H 106 H 118 H Calcium Phosphorus Magnesium ALT Alkaline Phosphatase Total Creatine Kinase CK-MB (CK-2) Rel Index Troponin T Albumin LDL Cholesterol Direct PTH Intact Salicylates Acetaminophen Crossmatch 03/12/19 03/13/19 03/13/19 23:36 04:38 04:38 WBC RBC 2.95 L Hgb 7.9 L Hct 24.9 L MCV MCH 27 L MCHC RDW 19.9 H Plt Count Lymph % (Auto) 11.1 L [place] % (Auto) 8.1 H Eos % (Auto) 4.4 H Baso % (Auto) Lymph # 0.9 L [place] # Eos # Baso # Seg Neutrophils % 75.4 H Seg Neuts % (Manual) Lymphocytes % (Manual) Eosinophils % (Manual) Seg Neutrophils # Lymphocytes # (Manual) Eosinophils # (Manual) PT INR D-Dimer POC ABG pH POC ABG pCO2 POC ABG pO2 ABG pO2 ABG HCO3 ABG Base Excess ABG Hemoglobin Oxyhemoglobin Sodium 136 L Potassium 5.1 H Chloride 93.8 L Carbon Dioxide BUN 48 H Creatinine 2.7 H Glucose 102 H POC Glucose 115 H Calcium Phosphorus Magnesium ALT < 5 L Alkaline Phosphatase 143 H Total Creatine Kinase CK-MB (CK-2) Rel Index Troponin T Albumin 2.5 L LDL Cholesterol Direct PTH Intact Salicylates Acetaminophen Crossmatch 03/13/19 03/13/19 03/13/19 05:33 13:37 18:03 WBC RBC Hgb Hct MCV MCH MCHC RDW Plt Count Lymph % (Auto) [place] % (Auto) Eos % (Auto) Baso % (Auto) Lymph # [place] # Eos # Baso # Seg Neutrophils % Seg Neuts % (Manual) Lymphocytes % (Manual) Eosinophils % (Manual) Seg Neutrophils # Lymphocytes # (Manual) Eosinophils # (Manual) PT INR D-Dimer POC ABG pH POC ABG pCO2 POC ABG pO2 ABG pO2 ABG HCO3 ABG Base Excess ABG Hemoglobin Oxyhemoglobin Sodium Potassium Chloride Carbon Dioxide BUN Creatinine Glucose POC Glucose 140 H 150 H 158 H Calcium Phosphorus Magnesium ALT Alkaline Phosphatase Total Creatine Kinase CK-MB (CK-2) Rel Index Troponin T Albumin LDL Cholesterol Direct PTH Intact Salicylates Acetaminophen Crossmatch 03/13/19 03/14/19 03/14/19 23:32 05:24 12:20 WBC RBC Hgb Hct MCV MCH MCHC RDW Plt Count Lymph % (Auto) [place] % (Auto) Eos % (Auto) Baso % (Auto) Lymph # [place] # Eos # Baso # Seg Neutrophils % Seg Neuts % (Manual) Lymphocytes % (Manual) Eosinophils % (Manual) Seg Neutrophils # Lymphocytes # (Manual) Eosinophils # (Manual) PT INR D-Dimer POC ABG pH POC ABG pCO2 POC ABG pO2 ABG pO2 ABG HCO3 ABG Base Excess ABG Hemoglobin Oxyhemoglobin Sodium Potassium Chloride Carbon Dioxide BUN Creatinine Glucose POC Glucose 162 H 146 H 127 H Calcium Phosphorus Magnesium ALT Alkaline Phosphatase Total Creatine Kinase CK-MB (CK-2) Rel Index Troponin T Albumin LDL Cholesterol Direct PTH Intact Salicylates Acetaminophen Crossmatch 03/14/19 03/14/19 03/15/19 18:05 23:57 04:38 WBC 12.8 H RBC 3.11 L Hgb 8.1 L Hct 26.5 L MCV MCH 26 L MCHC 31 L RDW 19.7 H Plt Count Lymph % (Auto) 4.4 L [place] % (Auto) 7.4 H Eos % (Auto) Baso % (Auto) Lymph # 0.6 L [place] # 0.9 H Eos # Baso # Seg Neutrophils % 87.3 H Seg Neuts % (Manual) Lymphocytes % (Manual) Eosinophils % (Manual) Seg Neutrophils # 11.2 H Lymphocytes # (Manual) Eosinophils # (Manual) PT INR D-Dimer POC ABG pH POC ABG pCO2 POC ABG pO2 ABG pO2 ABG HCO3 ABG Base Excess ABG Hemoglobin Oxyhemoglobin Sodium Potassium Chloride Carbon Dioxide BUN Creatinine Glucose POC Glucose 142 H 155 H Calcium Phosphorus Magnesium ALT Alkaline Phosphatase Total Creatine Kinase CK-MB (CK-2) Rel Index Troponin T Albumin LDL Cholesterol Direct PTH Intact Salicylates Acetaminophen Crossmatch 03/15/19 03/15/19 03/15/19 04:38 05:31 11:32 WBC RBC Hgb Hct MCV MCH MCHC RDW Plt Count Lymph % (Auto) [place] % (Auto) Eos % (Auto) Baso % (Auto) Lymph # [place] # Eos # Baso # Seg Neutrophils % Seg Neuts % (Manual) Lymphocytes % (Manual) Eosinophils % (Manual) Seg Neutrophils # Lymphocytes # (Manual) Eosinophils # (Manual) PT INR D-Dimer POC ABG pH POC ABG pCO2 POC ABG pO2 ABG pO2 ABG HCO3 ABG Base Excess ABG Hemoglobin Oxyhemoglobin Sodium 135 L Potassium Chloride 91.9 L Carbon Dioxide BUN 54 H Creatinine 2.8 H Glucose 128 H POC Glucose 160 H 109 H Calcium 11.1 H Phosphorus Magnesium ALT Alkaline Phosphatase 161 H Total Creatine Kinase CK-MB (CK-2) Rel Index Troponin T Albumin 2.3 L LDL Cholesterol Direct PTH Intact Salicylates Acetaminophen Crossmatch 03/15/19 03/15/19 03/16/19 18:15 23:41 05:40 WBC RBC Hgb Hct MCV MCH MCHC RDW Plt Count Lymph % (Auto) [place] % (Auto) Eos % (Auto) Baso % (Auto) Lymph # [place] # Eos # Baso # Seg Neutrophils % Seg Neuts % (Manual) Lymphocytes % (Manual) Eosinophils % (Manual) Seg Neutrophils # Lymphocytes # (Manual) Eosinophils # (Manual) PT INR D-Dimer POC ABG pH POC ABG pCO2 POC ABG pO2 ABG pO2 ABG HCO3 ABG Base Excess ABG Hemoglobin Oxyhemoglobin Sodium Potassium Chloride Carbon Dioxide BUN Creatinine Glucose POC Glucose 151 H 110 H 163 H Calcium Phosphorus Magnesium ALT Alkaline Phosphatase Total Creatine Kinase CK-MB (CK-2) Rel Index Troponin T Albumin LDL Cholesterol Direct PTH Intact Salicylates Acetaminophen Crossmatch 03/16/19 03/16/19 03/16/19 11:55 17:04 23:58 WBC RBC Hgb Hct MCV MCH MCHC RDW Plt Count Lymph % (Auto) [place] % (Auto) Eos % (Auto) Baso % (Auto) Lymph # [place] # Eos # Baso # Seg Neutrophils % Seg Neuts % (Manual) Lymphocytes % (Manual) Eosinophils % (Manual) Seg Neutrophils # Lymphocytes # (Manual) Eosinophils # (Manual) PT INR D-Dimer POC ABG pH POC ABG pCO2 POC ABG pO2 ABG pO2 ABG HCO3 ABG Base Excess ABG Hemoglobin Oxyhemoglobin Sodium Potassium Chloride Carbon Dioxide BUN Creatinine Glucose POC Glucose 114 H 147 H 192 H Calcium Phosphorus Magnesium ALT Alkaline Phosphatase Total Creatine Kinase CK-MB (CK-2) Rel Index Troponin T Albumin LDL Cholesterol Direct PTH Intact Salicylates Acetaminophen Crossmatch 03/17/19 03/17/19 03/17/19 05:53 11:17 17:01 WBC RBC Hgb Hct MCV MCH MCHC RDW Plt Count Lymph % (Auto) [place] % (Auto) Eos % (Auto) Baso % (Auto) Lymph # [place] # Eos # Baso # Seg Neutrophils % Seg Neuts % (Manual) Lymphocytes % (Manual) Eosinophils % (Manual) Seg Neutrophils # Lymphocytes # (Manual) Eosinophils # (Manual) PT INR D-Dimer POC ABG pH POC ABG pCO2 POC ABG pO2 ABG pO2 ABG HCO3 ABG Base Excess ABG Hemoglobin Oxyhemoglobin Sodium Potassium Chloride Carbon Dioxide BUN Creatinine Glucose POC Glucose 151 H 161 H 152 H Calcium Phosphorus Magnesium ALT Alkaline Phosphatase Total Creatine Kinase CK-MB (CK-2) Rel Index Troponin T Albumin LDL Cholesterol Direct PTH Intact Salicylates Acetaminophen Crossmatch 03/17/19 03/18/19 03/18/19 21:47 04:15 04:44 WBC RBC Hgb Hct MCV MCH MCHC RDW Plt Count Lymph % (Auto) [place] % (Auto) Eos % (Auto) Baso % (Auto) Lymph # [place] # Eos # Baso # Seg Neutrophils % Seg Neuts % (Manual) Lymphocytes % (Manual) Eosinophils % (Manual) Seg Neutrophils # Lymphocytes # (Manual) Eosinophils # (Manual) PT INR D-Dimer POC ABG pH POC ABG pCO2 POC ABG pO2 ABG pO2 102.8 H ABG HCO3 28.3 H ABG Base Excess ABG Hemoglobin 10.4 L Oxyhemoglobin 94.5 L Sodium Potassium Chloride Carbon Dioxide BUN Creatinine Glucose POC Glucose 170 H 150 H Calcium Phosphorus Magnesium ALT Alkaline Phosphatase Total Creatine Kinase CK-MB (CK-2) Rel Index Troponin T Albumin LDL Cholesterol Direct PTH Intact Salicylates Acetaminophen Crossmatch 03/18/19 03/18/19 03/18/19 06:38 12:12 17:47 WBC RBC Hgb Hct MCV MCH MCHC RDW Plt Count Lymph % (Auto) [place] % (Auto) Eos % (Auto) Baso % (Auto) Lymph # [place] # Eos # Baso # Seg Neutrophils % Seg Neuts % (Manual) Lymphocytes % (Manual) Eosinophils % (Manual) Seg Neutrophils # Lymphocytes # (Manual) Eosinophils # (Manual) PT INR D-Dimer POC ABG pH 7.510 H POC ABG pCO2 POC ABG pO2 164 H ABG pO2 ABG HCO3 ABG Base Excess ABG Hemoglobin Oxyhemoglobin Sodium Potassium Chloride Carbon Dioxide BUN Creatinine Glucose POC Glucose 145 H 149 H Calcium Phosphorus Magnesium ALT Alkaline Phosphatase Total Creatine Kinase CK-MB (CK-2) Rel Index Troponin T Albumin LDL Cholesterol Direct PTH Intact Salicylates Acetaminophen Crossmatch 03/18/19 03/19/19 03/19/19 23:25 01:11 04:23 WBC 15.6 H RBC 2.51 L Hgb 6.5 L Hct 21.6 L MCV MCH 26 L MCHC 30 L RDW 19.8 H Plt Count Lymph % (Auto) 6.0 L [place] % (Auto) Eos % (Auto) Baso % (Auto) Lymph # 0.9 L [place] # 1.0 H Eos # Baso # Seg Neutrophils % 85.5 H Seg Neuts % (Manual) Lymphocytes % (Manual) Eosinophils % (Manual) Seg Neutrophils # 13.4 H Lymphocytes # (Manual) Eosinophils # (Manual) PT INR D-Dimer POC ABG pH POC ABG pCO2 POC ABG pO2 ABG pO2 78.3 L ABG HCO3 30.7 H ABG Base Excess 5.8 H ABG Hemoglobin 5.8 L Oxyhemoglobin 94.6 L Sodium Potassium Chloride Carbon Dioxide BUN Creatinine Glucose POC Glucose 190 H Calcium Phosphorus Magnesium ALT Alkaline Phosphatase Total Creatine Kinase CK-MB (CK-2) Rel Index Troponin T Albumin LDL Cholesterol Direct PTH Intact Salicylates Acetaminophen Crossmatch 03/19/19 03/19/19 03/19/19 05:22 05:35 08:54 WBC RBC Hgb Hct MCV MCH MCHC RDW Plt Count Lymph % (Auto) [place] % (Auto) Eos % (Auto) Baso % (Auto) Lymph # [place] # Eos # Baso # Seg Neutrophils % Seg Neuts % (Manual) Lymphocytes % (Manual) Eosinophils % (Manual) Seg Neutrophils # Lymphocytes # (Manual) Eosinophils # (Manual) PT INR D-Dimer POC ABG pH POC ABG pCO2 POC ABG pO2 ABG pO2 ABG HCO3 ABG Base Excess ABG Hemoglobin Oxyhemoglobin Sodium Potassium Chloride Carbon Dioxide BUN Creatinine Glucose POC Glucose 167 H Calcium Phosphorus Magnesium ALT Alkaline Phosphatase Total Creatine Kinase CK-MB (CK-2) Rel Index Troponin T Albumin LDL Cholesterol Direct PTH Intact Salicylates Acetaminophen Crossmatch See Detail See Detail 03/19/19 03/19/19 03/19/19 12:36 17:02 23:25 WBC RBC Hgb Hct MCV MCH MCHC RDW Plt Count Lymph % (Auto) [place] % (Auto) Eos % (Auto) Baso % (Auto) Lymph # [place] # Eos # Baso # Seg Neutrophils % Seg Neuts % (Manual) Lymphocytes % (Manual) Eosinophils % (Manual) Seg Neutrophils # Lymphocytes # (Manual) Eosinophils # (Manual) PT INR D-Dimer POC ABG pH POC ABG pCO2 POC ABG pO2 ABG pO2 ABG HCO3 ABG Base Excess ABG Hemoglobin Oxyhemoglobin Sodium Potassium Chloride Carbon Dioxide BUN Creatinine Glucose POC Glucose 167 H 135 H 136 H Calcium Phosphorus Magnesium ALT Alkaline Phosphatase Total Creatine Kinase CK-MB (CK-2) Rel Index Troponin T Albumin LDL Cholesterol Direct PTH Intact Salicylates Acetaminophen Crossmatch 03/20/19 03/20/19 03/20/19 05:38 08:40 08:40 WBC RBC 2.61 L Hgb 7.1 L Hct 22.0 L MCV MCH 27 L MCHC RDW 19.6 H Plt Count Lymph % (Auto) 8.2 L [place] % (Auto) 8.3 H Eos % (Auto) 5.7 H Baso % (Auto) Lymph # 0.8 L [place] # Eos # 0.5 H Baso # Seg Neutrophils % 77.3 H Seg Neuts % (Manual) Lymphocytes % (Manual) Eosinophils % (Manual) Seg Neutrophils # Lymphocytes # (Manual) Eosinophils # (Manual) PT INR D-Dimer POC ABG pH POC ABG pCO2 POC ABG pO2 ABG pO2 ABG HCO3 ABG Base Excess ABG Hemoglobin Oxyhemoglobin Sodium Potassium Chloride 95.9 L Carbon Dioxide BUN 69 H Creatinine 2.8 H Glucose 115 H POC Glucose 134 H Calcium 10.5 H Phosphorus Magnesium ALT Alkaline Phosphatase Total Creatine Kinase CK-MB (CK-2) Rel Index Troponin T Albumin LDL Cholesterol Direct PTH Intact Salicylates Acetaminophen Crossmatch 03/20/19 03/20/19 03/20/19 12:13 18:04 23:49 WBC RBC Hgb Hct MCV MCH MCHC RDW Plt Count Lymph % (Auto) [place] % (Auto) Eos % (Auto) Baso % (Auto) Lymph # [place] # Eos # Baso # Seg Neutrophils % Seg Neuts % (Manual) Lymphocytes % (Manual) Eosinophils % (Manual) Seg Neutrophils # Lymphocytes # (Manual) Eosinophils # (Manual) PT INR D-Dimer POC ABG pH POC ABG pCO2 POC ABG pO2 ABG pO2 ABG HCO3 ABG Base Excess ABG Hemoglobin Oxyhemoglobin Sodium Potassium Chloride Carbon Dioxide BUN Creatinine Glucose POC Glucose 144 H 165 H 172 H Calcium Phosphorus Magnesium ALT Alkaline Phosphatase Total Creatine Kinase CK-MB (CK-2) Rel Index Troponin T Albumin LDL Cholesterol Direct PTH Intact Salicylates Acetaminophen Crossmatch 03/21/19 03/21/19 03/21/19 05:00 06:29 06:30 WBC RBC 2.72 L Hgb 7.4 L Hct 22.9 L MCV MCH 27 L MCHC RDW 19.4 H Plt Count Lymph % (Auto) [place] % (Auto) Eos % (Auto) Baso % (Auto) Lymph # [place] # Eos # Baso # Seg Neutrophils % Seg Neuts % (Manual) 81.0 H Lymphocytes % (Manual) 8.0 L Eosinophils % (Manual) 8.0 H Seg Neutrophils # Lymphocytes # (Manual) 0.7 L Eosinophils # (Manual) 0.7 H PT INR D-Dimer POC ABG pH POC ABG pCO2 POC ABG pO2 ABG pO2 ABG HCO3 ABG Base Excess ABG Hemoglobin Oxyhemoglobin Sodium Potassium Chloride Carbon Dioxide 33 H BUN 43 H Creatinine 1.7 H Glucose 145 H POC Glucose 156 H Calcium Phosphorus Magnesium ALT Alkaline Phosphatase 212 H Total Creatine Kinase CK-MB (CK-2) Rel Index Troponin T Albumin 2.2 L LDL Cholesterol Direct PTH Intact Salicylates Acetaminophen Crossmatch 03/21/19 03/21/19 03/22/19 12:02 18:07 00:21 WBC RBC Hgb Hct MCV MCH MCHC RDW Plt Count Lymph % (Auto) [place] % (Auto) Eos % (Auto) Baso % (Auto) Lymph # [place] # Eos # Baso # Seg Neutrophils % Seg Neuts % (Manual) Lymphocytes % (Manual) Eosinophils % (Manual) Seg Neutrophils # Lymphocytes # (Manual) Eosinophils # (Manual) PT INR D-Dimer POC ABG pH POC ABG pCO2 POC ABG pO2 ABG pO2 ABG HCO3 ABG Base Excess ABG Hemoglobin Oxyhemoglobin Sodium Potassium Chloride Carbon Dioxide BUN Creatinine Glucose POC Glucose 163 H 144 H 153 H Calcium Phosphorus Magnesium ALT Alkaline Phosphatase Total Creatine Kinase CK-MB (CK-2) Rel Index Troponin T Albumin LDL Cholesterol Direct PTH Intact Salicylates Acetaminophen Crossmatch 03/22/19 03/22/19 03/22/19 05:23 05:23 05:31 WBC RBC 2.58 L Hgb 7.1 L Hct 21.8 L MCV MCH 27 L MCHC RDW 19.2 H Plt Count Lymph % (Auto) [place] % (Auto) Eos % (Auto) Baso % (Auto) Lymph # [place] # Eos # Baso # Seg Neutrophils % Seg Neuts % (Manual) Lymphocytes % (Manual) Eosinophils % (Manual) Seg Neutrophils # Lymphocytes # (Manual) Eosinophils # (Manual) PT INR D-Dimer POC ABG pH POC ABG pCO2 POC ABG pO2 ABG pO2 ABG HCO3 ABG Base Excess ABG Hemoglobin Oxyhemoglobin Sodium 147 H Potassium Chloride Carbon Dioxide BUN 68 H Creatinine 2.5 H Glucose POC Glucose 116 H Calcium 10.3 H Phosphorus Magnesium ALT Alkaline Phosphatase Total Creatine Kinase CK-MB (CK-2) Rel Index Troponin T Albumin LDL Cholesterol Direct PTH Intact Salicylates Acetaminophen Crossmatch 03/22/19 03/22/19 03/22/19 08:48 12:37 17:35 WBC RBC Hgb Hct MCV MCH MCHC RDW Plt Count Lymph % (Auto) [place] % (Auto) Eos % (Auto) Baso % (Auto) Lymph # [place] # Eos # Baso # Seg Neutrophils % Seg Neuts % (Manual) Lymphocytes % (Manual) Eosinophils % (Manual) Seg Neutrophils # Lymphocytes # (Manual) Eosinophils # (Manual) PT INR D-Dimer POC ABG pH POC ABG pCO2 POC ABG pO2 ABG pO2 ABG HCO3 ABG Base Excess ABG Hemoglobin Oxyhemoglobin Sodium Potassium Chloride Carbon Dioxide BUN Creatinine Glucose POC Glucose 143 H 155 H Calcium Phosphorus Magnesium ALT Alkaline Phosphatase Total Creatine Kinase CK-MB (CK-2) Rel Index Troponin T Albumin LDL Cholesterol Direct PTH Intact Salicylates Acetaminophen Crossmatch See Detail 03/23/19 03/23/19 03/23/19 00:07 04:00 04:00 WBC 11.2 H RBC 2.32 L Hgb 6.4 L Hct 19.7 L* MCV MCH MCHC RDW 19.4 H Plt Count Lymph % (Auto) [place] % (Auto) Eos % (Auto) Baso % (Auto) Lymph # [place] # Eos # Baso # Seg Neutrophils % Seg Neuts % (Manual) Lymphocytes % (Manual) Eosinophils % (Manual) Seg Neutrophils # Lymphocytes # (Manual) Eosinophils # (Manual) PT INR D-Dimer POC ABG pH POC ABG pCO2 POC ABG pO2 ABG pO2 ABG HCO3 ABG Base Excess ABG Hemoglobin Oxyhemoglobin Sodium 147 H Potassium 5.2 H Chloride Carbon Dioxide BUN 86 H Creatinine 3.2 H Glucose 128 H POC Glucose 135 H Calcium 10.3 H Phosphorus Magnesium ALT Alkaline Phosphatase Total Creatine Kinase CK-MB (CK-2) Rel Index Troponin T Albumin LDL Cholesterol Direct PTH Intact Salicylates Acetaminophen Crossmatch 03/23/19 03/23/19 03/23/19 05:21 11:36 11:36 WBC RBC Hgb 7.9 L Hct 25.0 L MCV MCH MCHC RDW Plt Count Lymph % (Auto) [place] % (Auto) Eos % (Auto) Baso % (Auto) Lymph # [place] # Eos # Baso # Seg Neutrophils % Seg Neuts % (Manual) Lymphocytes % (Manual) Eosinophils % (Manual) Seg Neutrophils # Lymphocytes # (Manual) Eosinophils # (Manual) PT INR D-Dimer POC ABG pH POC ABG pCO2 POC ABG pO2 ABG pO2 ABG HCO3 ABG Base Excess ABG Hemoglobin Oxyhemoglobin Sodium Potassium Chloride Carbon Dioxide BUN Creatinine Glucose POC Glucose 132 H 147 H Calcium Phosphorus Magnesium ALT Alkaline Phosphatase Total Creatine Kinase CK-MB (CK-2) Rel Index Troponin T Albumin LDL Cholesterol Direct PTH Intact Salicylates Acetaminophen Crossmatch 03/23/19 03/24/19 03/24/19 17:31 01:22 04:20 WBC 12.2 H RBC 3.05 L Hgb 8.3 L Hct 25.9 L MCV MCH 27 L MCHC RDW 18.7 H Plt Count Lymph % (Auto) [place] % (Auto) Eos % (Auto) Baso % (Auto) Lymph # [place] # Eos # Baso # Seg Neutrophils % Seg Neuts % (Manual) Lymphocytes % (Manual) Eosinophils % (Manual) Seg Neutrophils # Lymphocytes # (Manual) Eosinophils # (Manual) PT INR D-Dimer POC ABG pH POC ABG pCO2 POC ABG pO2 ABG pO2 ABG HCO3 ABG Base Excess ABG Hemoglobin Oxyhemoglobin Sodium Potassium Chloride Carbon Dioxide BUN Creatinine Glucose POC Glucose 182 H 113 H Calcium Phosphorus Magnesium ALT Alkaline Phosphatase Total Creatine Kinase CK-MB (CK-2) Rel Index Troponin T Albumin LDL Cholesterol Direct PTH Intact Salicylates Acetaminophen Crossmatch 03/24/19 03/24/19 03/24/19 04:20 11:59 18:14 WBC RBC Hgb Hct MCV MCH MCHC RDW Plt Count Lymph % (Auto) [place] % (Auto) Eos % (Auto) Baso % (Auto) Lymph # [place] # Eos # Baso # Seg Neutrophils % Seg Neuts % (Manual) Lymphocytes % (Manual) Eosinophils % (Manual) Seg Neutrophils # Lymphocytes # (Manual) Eosinophils # (Manual) PT INR D-Dimer POC ABG pH POC ABG pCO2 POC ABG pO2 ABG pO2 ABG HCO3 ABG Base Excess ABG Hemoglobin Oxyhemoglobin Sodium Potassium Chloride 94.8 L Carbon Dioxide 32 H BUN 53 H Creatinine 2.3 H Glucose POC Glucose 163 H 134 H Calcium Phosphorus Magnesium ALT Alkaline Phosphatase Total Creatine Kinase CK-MB (CK-2) Rel Index Troponin T Albumin LDL Cholesterol Direct PTH Intact Salicylates Acetaminophen Crossmatch 03/24/19 03/25/19 03/25/19 23:15 05:52 12:02 WBC RBC Hgb Hct MCV MCH MCHC RDW Plt Count Lymph % (Auto) [place] % (Auto) Eos % (Auto) Baso % (Auto) Lymph # [place] # Eos # Baso # Seg Neutrophils % Seg Neuts % (Manual) Lymphocytes % (Manual) Eosinophils % (Manual) Seg Neutrophils # Lymphocytes # (Manual) Eosinophils # (Manual) PT INR D-Dimer POC ABG pH POC ABG pCO2 POC ABG pO2 ABG pO2 ABG HCO3 ABG Base Excess ABG Hemoglobin Oxyhemoglobin Sodium Potassium Chloride Carbon Dioxide BUN Creatinine Glucose POC Glucose 129 H 123 H 125 H Calcium Phosphorus Magnesium ALT Alkaline Phosphatase Total Creatine Kinase CK-MB (CK-2) Rel Index Troponin T Albumin LDL Cholesterol Direct PTH Intact Salicylates Acetaminophen Crossmatch 03/25/19 03/26/19 03/26/19 17:27 00:30 05:35 WBC RBC 3.01 L Hgb 8.1 L Hct 25.7 L MCV MCH 27 L MCHC RDW 19.2 H Plt Count Lymph % (Auto) 11.4 L [place] % (Auto) Eos % (Auto) 8.0 H Baso % (Auto) Lymph # 1.0 L [place] # Eos # 0.7 H Baso # Seg Neutrophils % 73.9 H Seg Neuts % (Manual) Lymphocytes % (Manual) Eosinophils % (Manual) Seg Neutrophils # Lymphocytes # (Manual) Eosinophils # (Manual) PT INR D-Dimer POC ABG pH POC ABG pCO2 POC ABG pO2 ABG pO2 ABG HCO3 ABG Base Excess ABG Hemoglobin Oxyhemoglobin Sodium Potassium Chloride Carbon Dioxide BUN Creatinine Glucose POC Glucose 130 H 129 H Calcium Phosphorus Magnesium ALT Alkaline Phosphatase Total Creatine Kinase CK-MB (CK-2) Rel Index Troponin T Albumin LDL Cholesterol Direct PTH Intact Salicylates Acetaminophen Crossmatch 03/26/19 03/26/19 03/26/19 05:35 05:45 12:16 WBC RBC Hgb Hct MCV MCH MCHC RDW Plt Count Lymph % (Auto) [place] % (Auto) Eos % (Auto) Baso % (Auto) Lymph # [place] # Eos # Baso # Seg Neutrophils % Seg Neuts % (Manual) Lymphocytes % (Manual) Eosinophils % (Manual) Seg Neutrophils # Lymphocytes # (Manual) Eosinophils # (Manual) PT INR D-Dimer POC ABG pH POC ABG pCO2 POC ABG pO2 ABG pO2 ABG HCO3 ABG Base Excess ABG Hemoglobin Oxyhemoglobin Sodium Potassium Chloride 94.9 L Carbon Dioxide 31 H BUN 44 H Creatinine 2.0 H Glucose POC Glucose 118 H 107 H Calcium Phosphorus Magnesium ALT Alkaline Phosphatase Total Creatine Kinase CK-MB (CK-2) Rel Index Troponin T Albumin LDL Cholesterol Direct PTH Intact Salicylates Acetaminophen Crossmatch 03/26/19 03/27/19 03/27/19 17:56 00:36 05:37 WBC RBC Hgb Hct MCV MCH MCHC RDW Plt Count Lymph % (Auto) [place] % (Auto) Eos % (Auto) Baso % (Auto) Lymph # [place] # Eos # Baso # Seg Neutrophils % Seg Neuts % (Manual) Lymphocytes % (Manual) Eosinophils % (Manual) Seg Neutrophils # Lymphocytes # (Manual) Eosinophils # (Manual) PT INR D-Dimer POC ABG pH POC ABG pCO2 POC ABG pO2 ABG pO2 ABG HCO3 ABG Base Excess ABG Hemoglobin Oxyhemoglobin Sodium Potassium Chloride Carbon Dioxide BUN Creatinine Glucose POC Glucose 107 H 110 H 122 H Calcium Phosphorus Magnesium ALT Alkaline Phosphatase Total Creatine Kinase CK-MB (CK-2) Rel Index Troponin T Albumin LDL Cholesterol Direct PTH Intact Salicylates Acetaminophen Crossmatch 03/27/19 03/27/19 03/28/19 11:22 18:00 05:17 WBC RBC Hgb Hct MCV MCH MCHC RDW Plt Count Lymph % (Auto) [place] % (Auto) Eos % (Auto) Baso % (Auto) Lymph # [place] # Eos # Baso # Seg Neutrophils % Seg Neuts % (Manual) Lymphocytes % (Manual) Eosinophils % (Manual) Seg Neutrophils # Lymphocytes # (Manual) Eosinophils # (Manual) PT INR D-Dimer POC ABG pH POC ABG pCO2 POC ABG pO2 ABG pO2 ABG HCO3 ABG Base Excess ABG Hemoglobin Oxyhemoglobin Sodium Potassium Chloride Carbon Dioxide BUN Creatinine Glucose POC Glucose 120 H 111 H 107 H Calcium Phosphorus Magnesium ALT Alkaline Phosphatase Total Creatine Kinase CK-MB (CK-2) Rel Index Troponin T Albumin LDL Cholesterol Direct PTH Intact Salicylates Acetaminophen Crossmatch 03/28/19 03/28/19 03/29/19 12:27 18:08 05:47 WBC RBC Hgb Hct MCV MCH MCHC RDW Plt Count Lymph % (Auto) [place] % (Auto) Eos % (Auto) Baso % (Auto) Lymph # [place] # Eos # Baso # Seg Neutrophils % Seg Neuts % (Manual) Lymphocytes % (Manual) Eosinophils % (Manual) Seg Neutrophils # Lymphocytes # (Manual) Eosinophils # (Manual) PT INR D-Dimer POC ABG pH POC ABG pCO2 POC ABG pO2 ABG pO2 ABG HCO3 ABG Base Excess ABG Hemoglobin Oxyhemoglobin Sodium Potassium Chloride Carbon Dioxide BUN Creatinine Glucose POC Glucose 114 H 121 H 112 H Calcium Phosphorus Magnesium ALT Alkaline Phosphatase Total Creatine Kinase CK-MB (CK-2) Rel Index Troponin T Albumin LDL Cholesterol Direct PTH Intact Salicylates Acetaminophen Crossmatch 03/29/19 03/29/19 03/30/19 12:14 18:08 00:31 WBC RBC Hgb Hct MCV MCH MCHC RDW Plt Count Lymph % (Auto) [place] % (Auto) Eos % (Auto) Baso % (Auto) Lymph # [place] # Eos # Baso # Seg Neutrophils % Seg Neuts % (Manual) Lymphocytes % (Manual) Eosinophils % (Manual) Seg Neutrophils # Lymphocytes # (Manual) Eosinophils # (Manual) PT INR D-Dimer POC ABG pH POC ABG pCO2 POC ABG pO2 ABG pO2 ABG HCO3 ABG Base Excess ABG Hemoglobin Oxyhemoglobin Sodium Potassium Chloride Carbon Dioxide BUN Creatinine Glucose POC Glucose 117 H 140 H 114 H Calcium Phosphorus Magnesium ALT Alkaline Phosphatase Total Creatine Kinase CK-MB (CK-2) Rel Index Troponin T Albumin LDL Cholesterol Direct PTH Intact Salicylates Acetaminophen Crossmatch 03/30/19 03/30/19 03/30/19 10:13 10:13 23:53 WBC RBC 2.81 L Hgb 7.7 L Hct 24.3 L MCV MCH 27 L MCHC RDW 19.0 H Plt Count Lymph % (Auto) 12.2 L [place] % (Auto) Eos % (Auto) 7.9 H Baso % (Auto) Lymph # 1.0 L [place] # Eos # 0.6 H Baso # Seg Neutrophils % 72.3 H Seg Neuts % (Manual) Lymphocytes % (Manual) Eosinophils % (Manual) Seg Neutrophils # Lymphocytes # (Manual) Eosinophils # (Manual) PT INR D-Dimer POC ABG pH POC ABG pCO2 POC ABG pO2 ABG pO2 ABG HCO3 ABG Base Excess ABG Hemoglobin Oxyhemoglobin Sodium Potassium 5.1 H Chloride 96.5 L Carbon Dioxide BUN 73 H Creatinine 3.9 H D Glucose POC Glucose 114 H Calcium 10.3 H Phosphorus 6.30 H Magnesium 2.70 H ALT Alkaline Phosphatase 185 H Total Creatine Kinase CK-MB (CK-2) Rel Index Troponin T Albumin 2.6 L LDL Cholesterol Direct PTH Intact Salicylates Acetaminophen Crossmatch 03/31/19 03/31/19 03/31/19 05:45 10:26 10:26 WBC RBC 3.01 L Hgb 8.2 L Hct 26.4 L MCV MCH 27 L MCHC 31 L RDW 20.3 H Plt Count Lymph % (Auto) 13.3 L [place] % (Auto) Eos % (Auto) 7.2 H Baso % (Auto) Lymph # 1.1 L [place] # Eos # 0.6 H Baso # Seg Neutrophils % 72.1 H Seg Neuts % (Manual) Lymphocytes % (Manual) Eosinophils % (Manual) Seg Neutrophils # Lymphocytes # (Manual) Eosinophils # (Manual) PT INR D-Dimer POC ABG pH POC ABG pCO2 POC ABG pO2 ABG pO2 ABG HCO3 ABG Base Excess ABG Hemoglobin Oxyhemoglobin Sodium Potassium Chloride 96.9 L Carbon Dioxide 33 H BUN 37 H Creatinine 2.4 H Glucose POC Glucose 108 H Calcium 10.3 H Phosphorus Magnesium ALT Alkaline Phosphatase Total Creatine Kinase CK-MB (CK-2) Rel Index Troponin T Albumin LDL Cholesterol Direct PTH Intact Salicylates Acetaminophen Crossmatch 03/31/19 04/01/19 04/01/19 12:38 05:48 12:06 WBC RBC Hgb Hct MCV MCH MCHC RDW Plt Count Lymph % (Auto) [place] % (Auto) Eos % (Auto) Baso % (Auto) Lymph # [place] # Eos # Baso # Seg Neutrophils % Seg Neuts % (Manual) Lymphocytes % (Manual) Eosinophils % (Manual) Seg Neutrophils # Lymphocytes # (Manual) Eosinophils # (Manual) PT INR D-Dimer POC ABG pH POC ABG pCO2 POC ABG pO2 ABG pO2 ABG HCO3 ABG Base Excess ABG Hemoglobin Oxyhemoglobin Sodium Potassium Chloride Carbon Dioxide BUN Creatinine Glucose POC Glucose 108 H 114 H 111 H Calcium Phosphorus Magnesium ALT Alkaline Phosphatase Total Creatine Kinase CK-MB (CK-2) Rel Index Troponin T Albumin LDL Cholesterol Direct PTH Intact Salicylates Acetaminophen Crossmatch 04/01/19 04/02/19 04/04/19 18:24 00:36 23:55 WBC RBC Hgb Hct MCV MCH MCHC RDW Plt Count Lymph % (Auto) [place] % (Auto) Eos % (Auto) Baso % (Auto) Lymph # [place] # Eos # Baso # Seg Neutrophils % Seg Neuts % (Manual) Lymphocytes % (Manual) Eosinophils % (Manual) Seg Neutrophils # Lymphocytes # (Manual) Eosinophils # (Manual) PT INR D-Dimer POC ABG pH POC ABG pCO2 POC ABG pO2 ABG pO2 ABG HCO3 ABG Base Excess ABG Hemoglobin Oxyhemoglobin Sodium Potassium Chloride Carbon Dioxide BUN Creatinine Glucose POC Glucose 113 H 117 H 109 H Calcium Phosphorus Magnesium ALT Alkaline Phosphatase Total Creatine Kinase CK-MB (CK-2) Rel Index Troponin T Albumin LDL Cholesterol Direct PTH Intact Salicylates Acetaminophen Crossmatch 04/06/19 04/06/19 04/06/19 00:11 06:02 23:30 WBC RBC Hgb Hct MCV MCH MCHC RDW Plt Count Lymph % (Auto) [place] % (Auto) Eos % (Auto) Baso % (Auto) Lymph # [place] # Eos # Baso # Seg Neutrophils % Seg Neuts % (Manual) Lymphocytes % (Manual) Eosinophils % (Manual) Seg Neutrophils # Lymphocytes # (Manual) Eosinophils # (Manual) PT INR D-Dimer POC ABG pH POC ABG pCO2 POC ABG pO2 ABG pO2 ABG HCO3 ABG Base Excess ABG Hemoglobin Oxyhemoglobin Sodium Potassium Chloride Carbon Dioxide BUN Creatinine Glucose POC Glucose 116 H 112 H 112 H Calcium Phosphorus Magnesium ALT Alkaline Phosphatase Total Creatine Kinase CK-MB (CK-2) Rel Index Troponin T Albumin LDL Cholesterol Direct PTH Intact Salicylates Acetaminophen Crossmatch 04/08/19 04/08/19 04/08/19 02:23 06:19 13:01 WBC RBC Hgb Hct MCV MCH MCHC RDW Plt Count Lymph % (Auto) [place] % (Auto) Eos % (Auto) Baso % (Auto) Lymph # [place] # Eos # Baso # Seg Neutrophils % Seg Neuts % (Manual) Lymphocytes % (Manual) Eosinophils % (Manual) Seg Neutrophils # Lymphocytes # (Manual) Eosinophils # (Manual) PT INR D-Dimer POC ABG pH POC ABG pCO2 POC ABG pO2 ABG pO2 ABG HCO3 ABG Base Excess ABG Hemoglobin Oxyhemoglobin Sodium Potassium Chloride Carbon Dioxide BUN Creatinine Glucose POC Glucose 144 H 126 H 118 H Calcium Phosphorus Magnesium ALT Alkaline Phosphatase Total Creatine Kinase CK-MB (CK-2) Rel Index Troponin T Albumin LDL Cholesterol Direct PTH Intact Salicylates Acetaminophen Crossmatch 04/08/19 04/09/19 04/10/19 23:28 05:52 06:34 WBC RBC Hgb Hct MCV MCH MCHC RDW Plt Count Lymph % (Auto) [place] % (Auto) Eos % (Auto) Baso % (Auto) Lymph # [place] # Eos # Baso # Seg Neutrophils % Seg Neuts % (Manual) Lymphocytes % (Manual) Eosinophils % (Manual) Seg Neutrophils # Lymphocytes # (Manual) Eosinophils # (Manual) PT INR D-Dimer POC ABG pH POC ABG pCO2 POC ABG pO2 ABG pO2 ABG HCO3 ABG Base Excess ABG Hemoglobin Oxyhemoglobin Sodium Potassium Chloride Carbon Dioxide BUN Creatinine Glucose POC Glucose 119 H 116 H 114 H Calcium Phosphorus Magnesium ALT Alkaline Phosphatase Total Creatine Kinase CK-MB (CK-2) Rel Index Troponin T Albumin LDL Cholesterol Direct PTH Intact Salicylates Acetaminophen Crossmatch 04/10/19 04/10/19 04/11/19 12:34 18:59 00:36 WBC RBC Hgb Hct MCV MCH MCHC RDW Plt Count Lymph % (Auto) [place] % (Auto) Eos % (Auto) Baso % (Auto) Lymph # [place] # Eos # Baso # Seg Neutrophils % Seg Neuts % (Manual) Lymphocytes % (Manual) Eosinophils % (Manual) Seg Neutrophils # Lymphocytes # (Manual) Eosinophils # (Manual) PT INR D-Dimer POC ABG pH POC ABG pCO2 POC ABG pO2 ABG pO2 ABG HCO3 ABG Base Excess ABG Hemoglobin Oxyhemoglobin Sodium Potassium Chloride Carbon Dioxide BUN Creatinine Glucose POC Glucose 112 H 109 H 124 H Calcium Phosphorus Magnesium ALT Alkaline Phosphatase Total Creatine Kinase CK-MB (CK-2) Rel Index Troponin T Albumin LDL Cholesterol Direct PTH Intact Salicylates Acetaminophen Crossmatch 04/11/19 04/11/19 04/12/19 08:01 17:25 02:18 WBC RBC Hgb Hct MCV MCH MCHC RDW Plt Count Lymph % (Auto) [place] % (Auto) Eos % (Auto) Baso % (Auto) Lymph # [place] # Eos # Baso # Seg Neutrophils % Seg Neuts % (Manual) Lymphocytes % (Manual) Eosinophils % (Manual) Seg Neutrophils # Lymphocytes # (Manual) Eosinophils # (Manual) PT INR D-Dimer POC ABG pH POC ABG pCO2 POC ABG pO2 ABG pO2 ABG HCO3 ABG Base Excess ABG Hemoglobin Oxyhemoglobin Sodium Potassium Chloride Carbon Dioxide BUN Creatinine Glucose POC Glucose 118 H 106 H 125 H Calcium Phosphorus Magnesium ALT Alkaline Phosphatase Total Creatine Kinase CK-MB (CK-2) Rel Index Troponin T Albumin LDL Cholesterol Direct PTH Intact Salicylates Acetaminophen Crossmatch 04/12/19 04/12/19 04/12/19 06:24 12:22 17:13 WBC RBC Hgb Hct MCV MCH MCHC RDW Plt Count Lymph % (Auto) [place] % (Auto) Eos % (Auto) Baso % (Auto) Lymph # [place] # Eos # Baso # Seg Neutrophils % Seg Neuts % (Manual) Lymphocytes % (Manual) Eosinophils % (Manual) Seg Neutrophils # Lymphocytes # (Manual) Eosinophils # (Manual) PT INR D-Dimer POC ABG pH POC ABG pCO2 POC ABG pO2 ABG pO2 ABG HCO3 ABG Base Excess ABG Hemoglobin Oxyhemoglobin Sodium Potassium Chloride Carbon Dioxide BUN Creatinine Glucose POC Glucose 128 H 114 H 110 H Calcium Phosphorus Magnesium ALT Alkaline Phosphatase Total Creatine Kinase CK-MB (CK-2) Rel Index Troponin T Albumin LDL Cholesterol Direct PTH Intact Salicylates Acetaminophen Crossmatch 04/13/19 04/13/19 04/13/19 06:59 07:31 07:31 WBC RBC 3.34 L Hgb 8.9 L Hct 28.6 L MCV MCH 27 L MCHC 31 L RDW 19.6 H Plt Count Lymph % (Auto) [place] % (Auto) Eos % (Auto) Baso % (Auto) Lymph # [place] # Eos # Baso # Seg Neutrophils % Seg Neuts % (Manual) Lymphocytes % (Manual) Eosinophils % (Manual) Seg Neutrophils # Lymphocytes # (Manual) Eosinophils # (Manual) PT INR D-Dimer POC ABG pH POC ABG pCO2 POC ABG pO2 ABG pO2 ABG HCO3 ABG Base Excess ABG Hemoglobin Oxyhemoglobin Sodium Potassium Chloride 96.4 L Carbon Dioxide 33 H BUN 66 H Creatinine 4.5 H Glucose 103 H POC Glucose 107 H Calcium Phosphorus Magnesium ALT Alkaline Phosphatase Total Creatine Kinase CK-MB (CK-2) Rel Index Troponin T Albumin LDL Cholesterol Direct PTH Intact Salicylates Acetaminophen Crossmatch 04/13/19 04/14/19 04/14/19 23:43 05:50 13:07 WBC RBC Hgb Hct MCV MCH MCHC RDW Plt Count Lymph % (Auto) [place] % (Auto) Eos % (Auto) Baso % (Auto) Lymph # [place] # Eos # Baso # Seg Neutrophils % Seg Neuts % (Manual) Lymphocytes % (Manual) Eosinophils % (Manual) Seg Neutrophils # Lymphocytes # (Manual) Eosinophils # (Manual) PT INR D-Dimer POC ABG pH POC ABG pCO2 POC ABG pO2 ABG pO2 ABG HCO3 ABG Base Excess ABG Hemoglobin Oxyhemoglobin Sodium Potassium Chloride Carbon Dioxide BUN Creatinine Glucose POC Glucose 119 H 112 H 112 H Calcium Phosphorus Magnesium ALT Alkaline Phosphatase Total Creatine Kinase CK-MB (CK-2) Rel Index Troponin T Albumin LDL Cholesterol Direct PTH Intact Salicylates Acetaminophen Crossmatch 04/14/19 04/15/19 04/15/19 18:35 01:18 05:17 WBC RBC Hgb Hct MCV MCH MCHC RDW Plt Count Lymph % (Auto) [place] % (Auto) Eos % (Auto) Baso % (Auto) Lymph # [place] # Eos # Baso # Seg Neutrophils % Seg Neuts % (Manual) Lymphocytes % (Manual) Eosinophils % (Manual) Seg Neutrophils # Lymphocytes # (Manual) Eosinophils # (Manual) PT INR D-Dimer POC ABG pH POC ABG pCO2 POC ABG pO2 ABG pO2 ABG HCO3 ABG Base Excess ABG Hemoglobin Oxyhemoglobin Sodium Potassium Chloride Carbon Dioxide BUN Creatinine Glucose POC Glucose 114 H 114 H 114 H Calcium Phosphorus Magnesium ALT Alkaline Phosphatase Total Creatine Kinase CK-MB (CK-2) Rel Index Troponin T Albumin LDL Cholesterol Direct PTH Intact Salicylates Acetaminophen Crossmatch 04/15/19 04/15/19 04/16/19 11:50 23:39 05:41 WBC RBC Hgb Hct MCV MCH MCHC RDW Plt Count Lymph % (Auto) [place] % (Auto) Eos % (Auto) Baso % (Auto) Lymph # [place] # Eos # Baso # Seg Neutrophils % Seg Neuts % (Manual) Lymphocytes % (Manual) Eosinophils % (Manual) Seg Neutrophils # Lymphocytes # (Manual) Eosinophils # (Manual) PT INR D-Dimer POC ABG pH POC ABG pCO2 POC ABG pO2 ABG pO2 ABG HCO3 ABG Base Excess ABG Hemoglobin Oxyhemoglobin Sodium Potassium Chloride Carbon Dioxide BUN Creatinine Glucose POC Glucose 109 H 115 H 125 H Calcium Phosphorus Magnesium ALT Alkaline Phosphatase Total Creatine Kinase CK-MB (CK-2) Rel Index Troponin T Albumin LDL Cholesterol Direct PTH Intact Salicylates Acetaminophen Crossmatch 04/16/19 04/17/19 04/17/19 12:53 01:00 12:38 WBC RBC Hgb Hct MCV MCH MCHC RDW Plt Count Lymph % (Auto) [place] % (Auto) Eos % (Auto) Baso % (Auto) Lymph # [place] # Eos # Baso # Seg Neutrophils % Seg Neuts % (Manual) Lymphocytes % (Manual) Eosinophils % (Manual) Seg Neutrophils # Lymphocytes # (Manual) Eosinophils # (Manual) PT INR D-Dimer POC ABG pH POC ABG pCO2 POC ABG pO2 ABG pO2 ABG HCO3 ABG Base Excess ABG Hemoglobin Oxyhemoglobin Sodium Potassium Chloride Carbon Dioxide BUN Creatinine Glucose POC Glucose 121 H 127 H 159 H Calcium Phosphorus Magnesium ALT Alkaline Phosphatase Total Creatine Kinase CK-MB (CK-2) Rel Index Troponin T Albumin LDL Cholesterol Direct PTH Intact Salicylates Acetaminophen Crossmatch 04/17/19 04/17/19 04/18/19 18:27 23:36 07:19 WBC RBC 3.49 L Hgb 9.0 L Hct 29.9 L MCV MCH 26 L MCHC 30 L RDW 20.0 H Plt Count Lymph % (Auto) [place] % (Auto) Eos % (Auto) Baso % (Auto) Lymph # [place] # Eos # Baso # Seg Neutrophils % Seg Neuts % (Manual) Lymphocytes % (Manual) Eosinophils % (Manual) Seg Neutrophils # Lymphocytes # (Manual) Eosinophils # (Manual) PT INR D-Dimer POC ABG pH POC ABG pCO2 POC ABG pO2 ABG pO2 ABG HCO3 ABG Base Excess ABG Hemoglobin Oxyhemoglobin Sodium Potassium Chloride Carbon Dioxide BUN Creatinine Glucose POC Glucose 109 H 134 H Calcium Phosphorus Magnesium ALT Alkaline Phosphatase Total Creatine Kinase CK-MB (CK-2) Rel Index Troponin T Albumin LDL Cholesterol Direct PTH Intact Salicylates Acetaminophen Crossmatch 04/18/19 04/18/19 04/18/19 07:19 12:16 17:09 WBC RBC Hgb Hct MCV MCH MCHC RDW Plt Count Lymph % (Auto) [place] % (Auto) Eos % (Auto) Baso % (Auto) Lymph # [place] # Eos # Baso # Seg Neutrophils % Seg Neuts % (Manual) Lymphocytes % (Manual) Eosinophils % (Manual) Seg Neutrophils # Lymphocytes # (Manual) Eosinophils # (Manual) PT INR D-Dimer POC ABG pH POC ABG pCO2 POC ABG pO2 ABG pO2 ABG HCO3 ABG Base Excess ABG Hemoglobin Oxyhemoglobin Sodium Potassium Chloride Carbon Dioxide BUN 41 H Creatinine 2.9 H Glucose 122 H POC Glucose 125 H 131 H Calcium Phosphorus Magnesium ALT Alkaline Phosphatase Total Creatine Kinase CK-MB (CK-2) Rel Index Troponin T Albumin LDL Cholesterol Direct PTH Intact Salicylates Acetaminophen Crossmatch 04/18/19 04/19/19 04/19/19 23:57 05:55 11:35 WBC RBC Hgb Hct MCV MCH MCHC RDW Plt Count Lymph % (Auto) [place] % (Auto) Eos % (Auto) Baso % (Auto) Lymph # [place] # Eos # Baso # Seg Neutrophils % Seg Neuts % (Manual) Lymphocytes % (Manual) Eosinophils % (Manual) Seg Neutrophils # Lymphocytes # (Manual) Eosinophils # (Manual) PT INR D-Dimer POC ABG pH POC ABG pCO2 POC ABG pO2 ABG pO2 ABG HCO3 ABG Base Excess ABG Hemoglobin Oxyhemoglobin Sodium Potassium Chloride Carbon Dioxide BUN Creatinine Glucose POC Glucose 159 H 144 H 177 H Calcium Phosphorus Magnesium ALT Alkaline Phosphatase Total Creatine Kinase CK-MB (CK-2) Rel Index Troponin T Albumin LDL Cholesterol Direct PTH Intact Salicylates Acetaminophen Crossmatch 04/19/19 04/20/19 04/20/19 16:36 02:05 06:28 WBC RBC Hgb Hct MCV MCH MCHC RDW Plt Count Lymph % (Auto) [place] % (Auto) Eos % (Auto) Baso % (Auto) Lymph # [place] # Eos # Baso # Seg Neutrophils % Seg Neuts % (Manual) Lymphocytes % (Manual) Eosinophils % (Manual) Seg Neutrophils # Lymphocytes # (Manual) Eosinophils # (Manual) PT INR D-Dimer POC ABG pH POC ABG pCO2 POC ABG pO2 ABG pO2 ABG HCO3 ABG Base Excess ABG Hemoglobin Oxyhemoglobin Sodium Potassium Chloride Carbon Dioxide BUN Creatinine Glucose POC Glucose 134 H 142 H 132 H Calcium Phosphorus Magnesium ALT Alkaline Phosphatase Total Creatine Kinase CK-MB (CK-2) Rel Index Troponin T Albumin LDL Cholesterol Direct PTH Intact Salicylates Acetaminophen Crossmatch 04/20/19 04/20/19 04/21/19 12:37 23:34 05:59 WBC RBC Hgb Hct MCV MCH MCHC RDW Plt Count Lymph % (Auto) [place] % (Auto) Eos % (Auto) Baso % (Auto) Lymph # [place] # Eos # Baso # Seg Neutrophils % Seg Neuts % (Manual) Lymphocytes % (Manual) Eosinophils % (Manual) Seg Neutrophils # Lymphocytes # (Manual) Eosinophils # (Manual) PT INR D-Dimer POC ABG pH POC ABG pCO2 POC ABG pO2 ABG pO2 ABG HCO3 ABG Base Excess ABG Hemoglobin Oxyhemoglobin Sodium Potassium Chloride Carbon Dioxide BUN Creatinine Glucose POC Glucose 163 H 166 H 140 H Calcium Phosphorus Magnesium ALT Alkaline Phosphatase Total Creatine Kinase CK-MB (CK-2) Rel Index Troponin T Albumin LDL Cholesterol Direct PTH Intact Salicylates Acetaminophen Crossmatch 04/21/19 04/21/19 04/21/19 12:07 17:22 23:43 WBC RBC Hgb Hct MCV MCH MCHC RDW Plt Count Lymph % (Auto) [place] % (Auto) Eos % (Auto) Baso % (Auto) Lymph # [place] # Eos # Baso # Seg Neutrophils % Seg Neuts % (Manual) Lymphocytes % (Manual) Eosinophils % (Manual) Seg Neutrophils # Lymphocytes # (Manual) Eosinophils # (Manual) PT INR D-Dimer POC ABG pH POC ABG pCO2 POC ABG pO2 ABG pO2 ABG HCO3 ABG Base Excess ABG Hemoglobin Oxyhemoglobin Sodium Potassium Chloride Carbon Dioxide BUN Creatinine Glucose POC Glucose 135 H 141 H 138 H Calcium Phosphorus Magnesium ALT Alkaline Phosphatase Total Creatine Kinase CK-MB (CK-2) Rel Index Troponin T Albumin LDL Cholesterol Direct PTH Intact Salicylates Acetaminophen Crossmatch 04/22/19 04/22/19 04/22/19 05:12 18:24 23:49 WBC RBC Hgb Hct MCV MCH MCHC RDW Plt Count Lymph % (Auto) [place] % (Auto) Eos % (Auto) Baso % (Auto) Lymph # [place] # Eos # Baso # Seg Neutrophils % Seg Neuts % (Manual) Lymphocytes % (Manual) Eosinophils % (Manual) Seg Neutrophils # Lymphocytes # (Manual) Eosinophils # (Manual) PT INR D-Dimer POC ABG pH POC ABG pCO2 POC ABG pO2 ABG pO2 ABG HCO3 ABG Base Excess ABG Hemoglobin Oxyhemoglobin Sodium Potassium Chloride Carbon Dioxide BUN Creatinine Glucose POC Glucose 141 H 137 H 142 H Calcium Phosphorus Magnesium ALT Alkaline Phosphatase Total Creatine Kinase CK-MB (CK-2) Rel Index Troponin T Albumin LDL Cholesterol Direct PTH Intact Salicylates Acetaminophen Crossmatch 04/23/19 04/23/19 04/23/19 05:53 08:13 11:58 WBC RBC Hgb Hct MCV MCH MCHC RDW Plt Count Lymph % (Auto) [place] % (Auto) Eos % (Auto) Baso % (Auto) Lymph # [place] # Eos # Baso # Seg Neutrophils % Seg Neuts % (Manual) Lymphocytes % (Manual) Eosinophils % (Manual) Seg Neutrophils # Lymphocytes # (Manual) Eosinophils # (Manual) PT INR D-Dimer POC ABG pH POC ABG pCO2 POC ABG pO2 ABG pO2 ABG HCO3 ABG Base Excess ABG Hemoglobin Oxyhemoglobin Sodium Potassium Chloride Carbon Dioxide BUN Creatinine Glucose POC Glucose 132 H 154 H 165 H Calcium Phosphorus Magnesium ALT Alkaline Phosphatase Total Creatine Kinase CK-MB (CK-2) Rel Index Troponin T Albumin LDL Cholesterol Direct PTH Intact Salicylates Acetaminophen Crossmatch 04/23/19 04/24/19 04/24/19 16:28 00:28 07:00 WBC RBC Hgb Hct MCV MCH MCHC RDW Plt Count Lymph % (Auto) [place] % (Auto) Eos % (Auto) Baso % (Auto) Lymph # [place] # Eos # Baso # Seg Neutrophils % Seg Neuts % (Manual) Lymphocytes % (Manual) Eosinophils % (Manual) Seg Neutrophils # Lymphocytes # (Manual) Eosinophils # (Manual) PT INR D-Dimer POC ABG pH POC ABG pCO2 POC ABG pO2 ABG pO2 ABG HCO3 ABG Base Excess ABG Hemoglobin Oxyhemoglobin Sodium Potassium Chloride Carbon Dioxide BUN Creatinine Glucose POC Glucose 136 H 140 H 141 H Calcium Phosphorus Magnesium ALT Alkaline Phosphatase Total Creatine Kinase CK-MB (CK-2) Rel Index Troponin T Albumin LDL Cholesterol Direct PTH Intact Salicylates Acetaminophen Crossmatch 04/24/19 04/24/19 04/25/19 12:38 18:57 00:38 WBC RBC Hgb Hct MCV MCH MCHC RDW Plt Count Lymph % (Auto) [place] % (Auto) Eos % (Auto) Baso % (Auto) Lymph # [place] # Eos # Baso # Seg Neutrophils % Seg Neuts % (Manual) Lymphocytes % (Manual) Eosinophils % (Manual) Seg Neutrophils # Lymphocytes # (Manual) Eosinophils # (Manual) PT INR D-Dimer POC ABG pH POC ABG pCO2 POC ABG pO2 ABG pO2 ABG HCO3 ABG Base Excess ABG Hemoglobin Oxyhemoglobin Sodium Potassium Chloride Carbon Dioxide BUN Creatinine Glucose POC Glucose 152 H 166 H 128 H Calcium Phosphorus Magnesium ALT Alkaline Phosphatase Total Creatine Kinase CK-MB (CK-2) Rel Index Troponin T Albumin LDL Cholesterol Direct PTH Intact Salicylates Acetaminophen Crossmatch 04/25/19 04/25/19 04/25/19 05:44 13:43 18:34 WBC RBC Hgb Hct MCV MCH MCHC RDW Plt Count Lymph % (Auto) [place] % (Auto) Eos % (Auto) Baso % (Auto) Lymph # [place] # Eos # Baso # Seg Neutrophils % Seg Neuts % (Manual) Lymphocytes % (Manual) Eosinophils % (Manual) Seg Neutrophils # Lymphocytes # (Manual) Eosinophils # (Manual) PT INR D-Dimer POC ABG pH POC ABG pCO2 POC ABG pO2 ABG pO2 ABG HCO3 ABG Base Excess ABG Hemoglobin Oxyhemoglobin Sodium Potassium Chloride Carbon Dioxide BUN Creatinine Glucose POC Glucose 153 H 186 H 124 H Calcium Phosphorus Magnesium ALT Alkaline Phosphatase Total Creatine Kinase CK-MB (CK-2) Rel Index Troponin T Albumin LDL Cholesterol Direct PTH Intact Salicylates Acetaminophen Crossmatch 04/26/19 04/26/19 04/26/19 00:59 05:52 10:12 WBC 11.5 H RBC 2.84 L Hgb 7.4 L Hct 23.3 L MCV 82 L MCH 26 L MCHC RDW 20.3 H Plt Count Lymph % (Auto) 7.5 L [place] % (Auto) 7.5 H Eos % (Auto) 5.3 H Baso % (Auto) Lymph # 0.9 L [place] # 0.9 H Eos # 0.6 H Baso # Seg Neutrophils % 79.2 H Seg Neuts % (Manual) Lymphocytes % (Manual) Eosinophils % (Manual) Seg Neutrophils # 9.1 H Lymphocytes # (Manual) Eosinophils # (Manual) PT INR D-Dimer POC ABG pH POC ABG pCO2 POC ABG pO2 ABG pO2 ABG HCO3 ABG Base Excess ABG Hemoglobin Oxyhemoglobin Sodium Potassium Chloride Carbon Dioxide BUN Creatinine Glucose POC Glucose 163 H 146 H Calcium Phosphorus Magnesium ALT Alkaline Phosphatase Total Creatine Kinase CK-MB (CK-2) Rel Index Troponin T Albumin LDL Cholesterol Direct PTH Intact Salicylates Acetaminophen Crossmatch 04/26/19 04/26/19 04/26/19 10:12 12:15 19:00 WBC RBC Hgb Hct MCV MCH MCHC RDW Plt Count Lymph % (Auto) [place] % (Auto) Eos % (Auto) Baso % (Auto) Lymph # [place] # Eos # Baso # Seg Neutrophils % Seg Neuts % (Manual) Lymphocytes % (Manual) Eosinophils % (Manual) Seg Neutrophils # Lymphocytes # (Manual) Eosinophils # (Manual) PT INR D-Dimer POC ABG pH POC ABG pCO2 POC ABG pO2 ABG pO2 ABG HCO3 ABG Base Excess ABG Hemoglobin Oxyhemoglobin Sodium 130 L Potassium Chloride 87.4 L Carbon Dioxide BUN 93 H Creatinine 4.2 H Glucose 140 H POC Glucose 155 H 179 H Calcium Phosphorus Magnesium ALT Alkaline Phosphatase Total Creatine Kinase CK-MB (CK-2) Rel Index Troponin T Albumin LDL Cholesterol Direct PTH Intact Salicylates Acetaminophen Crossmatch 04/27/19 04/27/19 04/27/19 00:23 06:34 17:13 WBC RBC Hgb Hct MCV MCH MCHC RDW Plt Count Lymph % (Auto) [place] % (Auto) Eos % (Auto) Baso % (Auto) Lymph # [place] # Eos # Baso # Seg Neutrophils % Seg Neuts % (Manual) Lymphocytes % (Manual) Eosinophils % (Manual) Seg Neutrophils # Lymphocytes # (Manual) Eosinophils # (Manual) PT INR D-Dimer POC ABG pH POC ABG pCO2 POC ABG pO2 ABG pO2 ABG HCO3 ABG Base Excess ABG Hemoglobin Oxyhemoglobin Sodium Potassium Chloride Carbon Dioxide BUN Creatinine Glucose POC Glucose 158 H 140 H 152 H Calcium Phosphorus Magnesium ALT Alkaline Phosphatase Total Creatine Kinase CK-MB (CK-2) Rel Index Troponin T Albumin LDL Cholesterol Direct PTH Intact Salicylates Acetaminophen Crossmatch 04/27/19 04/28/19 04/28/19 23:50 05:18 11:37 WBC RBC Hgb Hct MCV MCH MCHC RDW Plt Count Lymph % (Auto) [place] % (Auto) Eos % (Auto) Baso % (Auto) Lymph # [place] # Eos # Baso # Seg Neutrophils % Seg Neuts % (Manual) Lymphocytes % (Manual) Eosinophils % (Manual) Seg Neutrophils # Lymphocytes # (Manual) Eosinophils # (Manual) PT INR D-Dimer POC ABG pH POC ABG pCO2 POC ABG pO2 ABG pO2 ABG HCO3 ABG Base Excess ABG Hemoglobin Oxyhemoglobin Sodium Potassium Chloride Carbon Dioxide BUN Creatinine Glucose POC Glucose 160 H 145 H 177 H Calcium Phosphorus Magnesium ALT Alkaline Phosphatase Total Creatine Kinase CK-MB (CK-2) Rel Index Troponin T Albumin LDL Cholesterol Direct PTH Intact Salicylates Acetaminophen Crossmatch 04/28/19 04/28/19 04/29/19 18:31 23:47 05:50 WBC RBC Hgb Hct MCV MCH MCHC RDW Plt Count Lymph % (Auto) [place] % (Auto) Eos % (Auto) Baso % (Auto) Lymph # [place] # Eos # Baso # Seg Neutrophils % Seg Neuts % (Manual) Lymphocytes % (Manual) Eosinophils % (Manual) Seg Neutrophils # Lymphocytes # (Manual) Eosinophils # (Manual) PT INR D-Dimer POC ABG pH POC ABG pCO2 POC ABG pO2 ABG pO2 ABG HCO3 ABG Base Excess ABG Hemoglobin Oxyhemoglobin Sodium Potassium Chloride Carbon Dioxide BUN Creatinine Glucose POC Glucose 153 H 117 H 177 H Calcium Phosphorus Magnesium ALT Alkaline Phosphatase Total Creatine Kinase CK-MB (CK-2) Rel Index Troponin T Albumin LDL Cholesterol Direct PTH Intact Salicylates Acetaminophen Crossmatch 04/29/19 04/30/19 04/30/19 17:04 01:02 06:42 WBC RBC Hgb Hct MCV MCH MCHC RDW Plt Count Lymph % (Auto) [place] % (Auto) Eos % (Auto) Baso % (Auto) Lymph # [place] # Eos # Baso # Seg Neutrophils % Seg Neuts % (Manual) Lymphocytes % (Manual) Eosinophils % (Manual) Seg Neutrophils # Lymphocytes # (Manual) Eosinophils # (Manual) PT INR D-Dimer POC ABG pH POC ABG pCO2 POC ABG pO2 ABG pO2 ABG HCO3 ABG Base Excess ABG Hemoglobin Oxyhemoglobin Sodium Potassium Chloride Carbon Dioxide BUN Creatinine Glucose POC Glucose 205 H 143 H 145 H Calcium Phosphorus Magnesium ALT Alkaline Phosphatase Total Creatine Kinase CK-MB (CK-2) Rel Index Troponin T Albumin LDL Cholesterol Direct PTH Intact Salicylates Acetaminophen Crossmatch 04/30/19 04/30/19 04/30/19 11:31 18:12 23:38 WBC RBC Hgb Hct MCV MCH MCHC RDW Plt Count Lymph % (Auto) [place] % (Auto) Eos % (Auto) Baso % (Auto) Lymph # [place] # Eos # Baso # Seg Neutrophils % Seg Neuts % (Manual) Lymphocytes % (Manual) Eosinophils % (Manual) Seg Neutrophils # Lymphocytes # (Manual) Eosinophils # (Manual) PT INR D-Dimer POC ABG pH POC ABG pCO2 POC ABG pO2 ABG pO2 ABG HCO3 ABG Base Excess ABG Hemoglobin Oxyhemoglobin Sodium Potassium Chloride Carbon Dioxide BUN Creatinine Glucose POC Glucose 162 H 117 H 139 H Calcium Phosphorus Magnesium ALT Alkaline Phosphatase Total Creatine Kinase CK-MB (CK-2) Rel Index Troponin T Albumin LDL Cholesterol Direct PTH Intact Salicylates Acetaminophen Crossmatch 05/01/19 05/01/19 05/02/19 06:06 23:41 05:59 WBC RBC Hgb Hct MCV MCH MCHC RDW Plt Count Lymph % (Auto) [place] % (Auto) Eos % (Auto) Baso % (Auto) Lymph # [place] # Eos # Baso # Seg Neutrophils % Seg Neuts % (Manual) Lymphocytes % (Manual) Eosinophils % (Manual) Seg Neutrophils # Lymphocytes # (Manual) Eosinophils # (Manual) PT INR D-Dimer POC ABG pH POC ABG pCO2 POC ABG pO2 ABG pO2 ABG HCO3 ABG Base Excess ABG Hemoglobin Oxyhemoglobin Sodium Potassium Chloride Carbon Dioxide BUN Creatinine Glucose POC Glucose 150 H 140 H 130 H Calcium Phosphorus Magnesium ALT Alkaline Phosphatase Total Creatine Kinase CK-MB (CK-2) Rel Index Troponin T Albumin LDL Cholesterol Direct PTH Intact Salicylates Acetaminophen Crossmatch 05/02/19 05/02/19 05/03/19 11:55 18:10 00:15 WBC RBC Hgb Hct MCV MCH MCHC RDW Plt Count Lymph % (Auto) Creek % (Auto) Eos % (Auto) Baso % (Auto) Lymph # Creek # Eos # Baso # Seg Neutrophils % Seg Neuts % (Manual) Lymphocytes % (Manual) Eosinophils % (Manual) Seg Neutrophils # Lymphocytes # (Manual) Eosinophils # (Manual) PT INR D-Dimer POC ABG pH POC ABG pCO2 POC ABG pO2 ABG pO2 ABG HCO3 ABG Base Excess ABG Hemoglobin Oxyhemoglobin Sodium Potassium Chloride Carbon Dioxide BUN Creatinine Glucose POC Glucose 146 H 141 H 145 H Calcium Phosphorus Magnesium ALT Alkaline Phosphatase Total Creatine Kinase CK-MB (CK-2) Rel Index Troponin T Albumin LDL Cholesterol Direct PTH Intact Salicylates Acetaminophen Crossmatch 05/03/19 05/03/19 05/03/19 05:49 05:49 06:01 WBC RBC 2.84 L Hgb 7.2 L Hct 22.9 L MCV 81 L MCH 26 L MCHC RDW 20.6 H Plt Count 456 H Lymph % (Auto) 11.8 L Creek % (Auto) Eos % (Auto) 10.6 H Baso % (Auto) Lymph # 1.1 L Creek # Eos # 1.0 H Baso # Seg Neutrophils % 70.4 H Seg Neuts % (Manual) Lymphocytes % (Manual) Eosinophils % (Manual) Seg Neutrophils # Lymphocytes # (Manual) Eosinophils # (Manual) PT INR D-Dimer POC ABG pH POC ABG pCO2 POC ABG pO2 ABG pO2 ABG HCO3 ABG Base Excess ABG Hemoglobin Oxyhemoglobin Sodium Potassium Chloride 94.8 L Carbon Dioxide BUN 66 H Creatinine 3.6 H Glucose 129 H POC Glucose 135 H Calcium Phosphorus Magnesium ALT Alkaline Phosphatase Total Creatine Kinase CK-MB (CK-2) Rel Index Troponin T Albumin LDL Cholesterol Direct PTH Intact Salicylates Acetaminophen Crossmatch 05/03/19 05/03/19 05/04/19 11:04 18:40 00:06 WBC RBC Hgb Hct MCV MCH MCHC RDW Plt Count Lymph % (Auto) Creek % (Auto) Eos % (Auto) Baso % (Auto) Lymph # Creek # Eos # Baso # Seg Neutrophils % Seg Neuts % (Manual) Lymphocytes % (Manual) Eosinophils % (Manual) Seg Neutrophils # Lymphocytes # (Manual) Eosinophils # (Manual) PT INR D-Dimer POC ABG pH POC ABG pCO2 POC ABG pO2 ABG pO2 ABG HCO3 ABG Base Excess ABG Hemoglobin Oxyhemoglobin Sodium Potassium Chloride Carbon Dioxide BUN Creatinine Glucose POC Glucose 191 H 167 H 137 H Calcium Phosphorus Magnesium ALT Alkaline Phosphatase Total Creatine Kinase CK-MB (CK-2) Rel Index Troponin T Albumin LDL Cholesterol Direct PTH Intact Salicylates Acetaminophen Crossmatch 05/04/19 05/04/19 05/04/19 06:44 07:30 07:30 WBC 15.8 H RBC 2.74 L Hgb 6.7 L Hct 22.2 L MCV 81 L MCH 24 L MCHC 30 L RDW 20.4 H Plt Count 450 H Lymph % (Auto) 5.1 L Creek % (Auto) Eos % (Auto) Baso % (Auto) Lymph # 0.8 L [place] # Eos # 0.6 H Baso # Seg Neutrophils % 86.3 H Seg Neuts % (Manual) Lymphocytes % (Manual) Eosinophils % (Manual) Seg Neutrophils # 13.6 H Lymphocytes # (Manual) Eosinophils # (Manual) PT INR D-Dimer POC ABG pH POC ABG pCO2 POC ABG pO2 ABG pO2 ABG HCO3 ABG Base Excess ABG Hemoglobin Oxyhemoglobin Sodium Potassium Chloride 95.2 L Carbon Dioxide BUN 92 H Creatinine 4.8 H Glucose 139 H POC Glucose 153 H Calcium Phosphorus Magnesium ALT Alkaline Phosphatase Total Creatine Kinase CK-MB (CK-2) Rel Index Troponin T Albumin LDL Cholesterol Direct PTH Intact Salicylates Acetaminophen Crossmatch 05/04/19 05/04/19 05/05/19 12:55 16:31 01:02 WBC RBC Hgb Hct MCV MCH MCHC RDW Plt Count Lymph % (Auto) Creek % (Auto) Eos % (Auto) Baso % (Auto) Lymph # Creek # Eos # Baso # Seg Neutrophils % Seg Neuts % (Manual) Lymphocytes % (Manual) Eosinophils % (Manual) Seg Neutrophils # Lymphocytes # (Manual) Eosinophils # (Manual) PT INR D-Dimer POC ABG pH POC ABG pCO2 POC ABG pO2 ABG pO2 ABG HCO3 ABG Base Excess ABG Hemoglobin Oxyhemoglobin Sodium Potassium Chloride Carbon Dioxide BUN Creatinine Glucose POC Glucose 169 H 171 H Calcium Phosphorus Magnesium ALT Alkaline Phosphatase Total Creatine Kinase CK-MB (CK-2) Rel Index Troponin T Albumin LDL Cholesterol Direct PTH Intact Salicylates Acetaminophen Crossmatch See Detail 05/05/19 05/05/19 05/05/19 05:26 05:36 11:48 WBC 12.6 H RBC 2.73 L Hgb 6.9 L Hct 22.3 L MCV 82 L MCH 25 L MCHC 31 L RDW 21.0 H Plt Count Lymph % (Auto) 8.9 L Creek % (Auto) Eos % (Auto) Baso % (Auto) Lymph # 1.1 L Creek # 0.9 H Eos # Baso # Seg Neutrophils % 80.7 H Seg Neuts % (Manual) Lymphocytes % (Manual) Eosinophils % (Manual) Seg Neutrophils # 10.2 H Lymphocytes # (Manual) Eosinophils # (Manual) PT INR D-Dimer POC ABG pH POC ABG pCO2 POC ABG pO2 ABG pO2 ABG HCO3 ABG Base Excess ABG Hemoglobin Oxyhemoglobin Sodium Potassium Chloride Carbon Dioxide BUN Creatinine Glucose POC Glucose 153 H 173 H Calcium Phosphorus Magnesium ALT Alkaline Phosphatase Total Creatine Kinase CK-MB (CK-2) Rel Index Troponin T Albumin LDL Cholesterol Direct PTH Intact Salicylates Acetaminophen Crossmatch 05/05/19 05/06/19 05/06/19 16:42 02:24 06:12 WBC RBC Hgb Hct MCV MCH MCHC RDW Plt Count Lymph % (Auto) Creek % (Auto) Eos % (Auto) Baso % (Auto) Lymph # Creek # Eos # Baso # Seg Neutrophils % Seg Neuts % (Manual) Lymphocytes % (Manual) Eosinophils % (Manual) Seg Neutrophils # Lymphocytes # (Manual) Eosinophils # (Manual) PT INR D-Dimer POC ABG pH POC ABG pCO2 POC ABG pO2 ABG pO2 ABG HCO3 ABG Base Excess ABG Hemoglobin Oxyhemoglobin Sodium Potassium Chloride Carbon Dioxide BUN Creatinine Glucose POC Glucose 126 H 138 H 151 H Calcium Phosphorus Magnesium ALT Alkaline Phosphatase Total Creatine Kinase CK-MB (CK-2) Rel Index Troponin T Albumin LDL Cholesterol Direct PTH Intact Salicylates Acetaminophen Crossmatch 05/06/19 05/06/19 05/06/19 08:15 16:48 23:16 WBC 11.8 H RBC 2.72 L Hgb 6.7 L Hct 21.7 L MCV 80 L MCH 25 L MCHC 31 L RDW 20.9 H Plt Count Lymph % (Auto) Creek % (Auto) Eos % (Auto) Baso % (Auto) Lymph # Creek # Eos # Baso # Seg Neutrophils % Seg Neuts % (Manual) Lymphocytes % (Manual) Eosinophils % (Manual) Seg Neutrophils # Lymphocytes # (Manual) Eosinophils # (Manual) PT INR D-Dimer POC ABG pH POC ABG pCO2 POC ABG pO2 ABG pO2 ABG HCO3 ABG Base Excess ABG Hemoglobin Oxyhemoglobin Sodium Potassium Chloride Carbon Dioxide BUN Creatinine Glucose POC Glucose 153 H 143 H Calcium Phosphorus Magnesium ALT Alkaline Phosphatase Total Creatine Kinase CK-MB (CK-2) Rel Index Troponin T Albumin LDL Cholesterol Direct PTH Intact Salicylates Acetaminophen Crossmatch 05/07/19 05/07/19 05/07/19 06:00 06:30 12:33 WBC RBC 3.53 L Hgb 9.1 L Hct 28.6 L D MCV 81 L MCH 26 L MCHC RDW 19.1 H Plt Count Lymph % (Auto) 9.6 L Creek % (Auto) Eos % (Auto) 4.8 H Baso % (Auto) Lymph # 1.1 L [place] # Eos # 0.5 H Baso # Seg Neutrophils % 77.8 H Seg Neuts % (Manual) Lymphocytes % (Manual) Eosinophils % (Manual) Seg Neutrophils # 8.6 H Lymphocytes # (Manual) Eosinophils # (Manual) PT INR D-Dimer POC ABG pH POC ABG pCO2 POC ABG pO2 ABG pO2 ABG HCO3 ABG Base Excess ABG Hemoglobin Oxyhemoglobin Sodium Potassium Chloride Carbon Dioxide BUN Creatinine Glucose POC Glucose 122 H 140 H Calcium Phosphorus Magnesium ALT Alkaline Phosphatase Total Creatine Kinase CK-MB (CK-2) Rel Index Troponin T Albumin LDL Cholesterol Direct PTH Intact Salicylates Acetaminophen Crossmatch 05/07/19 05/07/19 05/08/19 16:41 23:55 05:10 WBC 11.6 H RBC 3.54 L Hgb 9.1 L Hct 29.1 L MCV 82 L MCH 26 L MCHC 31 L RDW 19.6 H Plt Count Lymph % (Auto) 6.6 L [place] % (Auto) Eos % (Auto) Baso % (Auto) 1.9 H Lymph # 0.8 L [place] # Eos # Baso # 0.2 H Seg Neutrophils % 82.6 H Seg Neuts % (Manual) Lymphocytes % (Manual) Eosinophils % (Manual) Seg Neutrophils # 9.6 H Lymphocytes # (Manual) Eosinophils # (Manual) PT INR D-Dimer POC ABG pH POC ABG pCO2 POC ABG pO2 ABG pO2 ABG HCO3 ABG Base Excess ABG Hemoglobin Oxyhemoglobin Sodium Potassium Chloride Carbon Dioxide BUN Creatinine Glucose POC Glucose 143 H 153 H Calcium Phosphorus Magnesium ALT Alkaline Phosphatase Total Creatine Kinase CK-MB (CK-2) Rel Index Troponin T Albumin LDL Cholesterol Direct PTH Intact Salicylates Acetaminophen Crossmatch 05/08/19 05/08/19 05/09/19 06:09 16:55 03:27 WBC RBC Hgb Hct MCV MCH MCHC RDW Plt Count Lymph % (Auto) Creek % (Auto) Eos % (Auto) Baso % (Auto) Lymph # Creek # Eos # Baso # Seg Neutrophils % Seg Neuts % (Manual) Lymphocytes % (Manual) Eosinophils % (Manual) Seg Neutrophils # Lymphocytes # (Manual) Eosinophils # (Manual) PT INR D-Dimer POC ABG pH POC ABG pCO2 POC ABG pO2 ABG pO2 ABG HCO3 ABG Base Excess ABG Hemoglobin Oxyhemoglobin Sodium Potassium Chloride Carbon Dioxide BUN Creatinine Glucose POC Glucose 204 H 196 H 175 H Calcium Phosphorus Magnesium ALT Alkaline Phosphatase Total Creatine Kinase CK-MB (CK-2) Rel Index Troponin T Albumin LDL Cholesterol Direct PTH Intact Salicylates Acetaminophen Crossmatch 05/09/19 05/09/19 05/09/19 06:00 11:00 12:41 WBC 12.0 H RBC Hgb 9.7 L Hct 30.2 L MCV 83 L MCH 26 L MCHC RDW 20.1 H Plt Count Lymph % (Auto) 7.4 L Creek % (Auto) 7.6 H Eos % (Auto) Baso % (Auto) Lymph # 0.9 L Creek # 0.9 H Eos # Baso # Seg Neutrophils % 80.7 H Seg Neuts % (Manual) Lymphocytes % (Manual) Eosinophils % (Manual) Seg Neutrophils # 9.7 H Lymphocytes # (Manual) Eosinophils # (Manual) PT INR D-Dimer POC ABG pH POC ABG pCO2 POC ABG pO2 ABG pO2 ABG HCO3 ABG Base Excess ABG Hemoglobin Oxyhemoglobin Sodium Potassium Chloride Carbon Dioxide BUN Creatinine Glucose POC Glucose 172 H 168 H Calcium Phosphorus Magnesium ALT Alkaline Phosphatase Total Creatine Kinase CK-MB (CK-2) Rel Index Troponin T Albumin LDL Cholesterol Direct PTH Intact Salicylates Acetaminophen Crossmatch 05/09/19 05/10/19 05/10/19 17:45 01:26 06:07 WBC RBC Hgb Hct MCV MCH MCHC RDW Plt Count Lymph % (Auto) Creek % (Auto) Eos % (Auto) Baso % (Auto) Lymph # Creek # Eos # Baso # Seg Neutrophils % Seg Neuts % (Manual) Lymphocytes % (Manual) Eosinophils % (Manual) Seg Neutrophils # Lymphocytes # (Manual) Eosinophils # (Manual) PT INR D-Dimer POC ABG pH POC ABG pCO2 POC ABG pO2 ABG pO2 ABG HCO3 ABG Base Excess ABG Hemoglobin Oxyhemoglobin Sodium Potassium Chloride Carbon Dioxide BUN Creatinine Glucose POC Glucose 167 H 174 H 179 H Calcium Phosphorus Magnesium ALT Alkaline Phosphatase Total Creatine Kinase CK-MB (CK-2) Rel Index Troponin T Albumin LDL Cholesterol Direct PTH Intact Salicylates Acetaminophen Crossmatch 05/10/19 05/10/19 05/10/19 06:45 12:31 17:18 WBC RBC Hgb Hct MCV MCH MCHC RDW Plt Count Lymph % (Auto) Creek % (Auto) Eos % (Auto) Baso % (Auto) Lymph # Creek # Eos # Baso # Seg Neutrophils % Seg Neuts % (Manual) Lymphocytes % (Manual) Eosinophils % (Manual) Seg Neutrophils # Lymphocytes # (Manual) Eosinophils # (Manual) PT INR D-Dimer POC ABG pH POC ABG pCO2 POC ABG pO2 ABG pO2 ABG HCO3 ABG Base Excess ABG Hemoglobin Oxyhemoglobin Sodium 134 L Potassium Chloride 90.2 L Carbon Dioxide BUN 82 H Creatinine 4.1 H Glucose 195 H POC Glucose 201 H 197 H Calcium Phosphorus Magnesium ALT Alkaline Phosphatase Total Creatine Kinase CK-MB (CK-2) Rel Index Troponin T Albumin LDL Cholesterol Direct PTH Intact Salicylates Acetaminophen Crossmatch 05/11/19 05/11/19 00:20 06:30 WBC RBC Hgb Hct MCV MCH MCHC RDW Plt Count Lymph % (Auto) Creek % (Auto) Eos % (Auto) Baso % (Auto) Lymph # Creek # Eos # Baso # Seg Neutrophils % Seg Neuts % (Manual) Lymphocytes % (Manual) Eosinophils % (Manual) Seg Neutrophils # Lymphocytes # (Manual) Eosinophils # (Manual) PT INR D-Dimer POC ABG pH POC ABG pCO2 POC ABG pO2 ABG pO2 ABG HCO3 ABG Base Excess ABG Hemoglobin Oxyhemoglobin Sodium Potassium Chloride Carbon Dioxide BUN Creatinine Glucose POC Glucose 131 H 148 H Calcium Phosphorus Magnesium ALT Alkaline Phosphatase Total Creatine Kinase CK-MB (CK-2) Rel Index Troponin T Albumin LDL Cholesterol Direct PTH Intact Salicylates Acetaminophen Crossmatch
[2019-05-11] MEDS ORDERED: SODIUM CHLORIDE*PRIMING MACHINE ONLY FOR DIALYSIS MC ONE (12:47)
[2019-05-11] MEDS: EPOETIN ALFA 20,000 UNIT/1 ML INJ IV PRN (12:48)
[2019-05-11] MEDS ORDERED: SODIUM HYPOCHLORITE, DAKIN'S 1/2 STRENGTH (0.25%) 473 ML TOPICAL SOLN TP SCH (14:00)
--- NOTE | 2019-05-11 15:30 | Progress Note ---
Assessment and Plan /Acute respiratory failure on mechanical ventilator >96 hrs Likely from pulmonary edema with volume overload from end-stage renal disease a nd underlying CHF Extubated ; Currently on trach/peg placed on 03/03. Now off vent, cont oxygen supplement, improving, Transitioned to t piece now capped to size 4 since 05/09/19, cont nebulizers, pu lmonary critical following /-Anemia of chronic disease s/p 5 units of prbc , r/o GI loss - ordered stool for occult blood - negative - monitor h/h /acute on chronic systolic CHF/ Acute pulmonary edema, HD per schedule /Dilated CMP, EF 35-40% Continue diuresis, supportive care /Acute metabolic encephalopathy, resolved, has baseline Dementia. /ESRD on hemodialysis per schedule nephrology following /-Bilateral pleural effusions improved with HD /Permanent atrial fibrillation and flutter and hypercoaguable state Not on anticoagulation because of anemia thrombocytopenia rate control meds optimized /-Diabetes mellitus type 2 Accu-Chek sliding scale coverage Insulin as needed /NSTEMI type 2 , Cardiology following /-Schizophrenia:stable /-Legally blind, supportive care /-hypertension, Monitor BP,'s adjust medications as needed /-Hypokalemia; corrected /-Pulmonary hypertension; continue current management /-Dysphagia s/p PEG tube; PEG tubes per protocol /-Severe malnutrition /hypoalbuminemia with FTT: 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, 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 family does not want hospice, very poor prognosis due to multiple comorbidity and bedbound condition Brief History: Patient is 63-year-old -[place] male patient from [facility] with m ultiple co-morbidities including blindness, CVA, CHF, PPM/ICD, loop recorder since 2012 that is MRI compatible, IDDM type 2, sepsis left foot ulcer, afib, ESRD with complications on HD TTS, hypertension, AOCD and GERD who presented to the ED with hypotensive after intubation in the emergency room. diagnosed with fluid overload, pleural effusion. Patient has had recurrent admission in the hospital for similar reason and was recently discharged from the hospital following treatment of Severe Sepsis due to Necrotizing Unstagable sacral decubitus ulcer with ostemomylitis, has received multiple courses of broad spectrum abx. Admitted for Acute hypoxic respiratory failure, status post intubation and ventilatory support, now off vent, transitioned to T-piece - now capped waiting on placement Hospitalist Physical Patient is on trach now capped and PEG, The patient appeared ill looking and normally developed. Vital signs as documented. Head exam is unremarkable. No scleral icterus . Neck is without jugular venous distension, thyromegaly, or carotid bruits. trach in place Lungs with few rhonchi b/l. Cardiac exam reveals regular rate and Rhythm. First and second heart sounds normal. Abdominal exam reveals PEG tube in place, colostomy bag in place. Extremities are non edematous. CASE MGR: patient doesn't follow commands Subjective Date of service: 05/11/19 Principal diagnosis: Respiratory failure, acute on chronic systolic HF, ESRD Interval history: Patient seen and examined No acute event overnight Patient remained on capped trach, no family at bedside Discussed with RN and case management about plan of care and discharge planning Objective - Constitutional Vitals: Vital Signs - 12hr 05/11/19 05/11/19 05/11/19 04:00 08:00 08:15 Temperature Pulse Rate 69 Pulse Rate [ 89 Anterior Bilateral Throughout] Pulse Rate [ Apical] Respiratory Rate Respiratory 16 Rate [Anterior Bilateral Throughout] Blood Pressure O2 Sat by Pulse 90 Oximetry O2 Sat by Pulse Oximetry [ Anterior Bilateral Throughout] O2 Sat by Pulse 100 Oximetry [ Assessment] 05/11/19 05/11/19 05/11/19 08:39 10:00 10:20 Temperature 98.8 F 99.1 F Pulse Rate 105 H 101 H 89 Pulse Rate [ Anterior Bilateral Throughout] Pulse Rate [ 101 H Apical] Respiratory 18 20 Rate Respiratory Rate [Anterior Bilateral Throughout] Blood Pressure 114/55 96/53 O2 Sat by Pulse 91 100 Oximetry O2 Sat by Pulse 100 Oximetry [ Anterior Bilateral Throughout] O2 Sat by Pulse Oximetry [ Assessment] 05/11/19 05/11/1905/11/19 10:30 10:45 11:00 Temperature Pulse Rate 95 H 94 H 100 H Pulse Rate [ Anterior Bilateral Throughout] Pulse Rate [ Apical] Respiratory Rate Respiratory Rate [Anterior Bilateral Throughout] Blood Pressure 91/56 94/51 106/62 O2 Sat by Pulse Oximetry O2 Sat by Pulse Oximetry [ Anterior Bilateral Throughout] O2 Sat by Pulse Oximetry [ Assessment] 05/11/19 05/11/19 05/11/19 11:15 11:30 11:45 Temperature Pulse Rate 100 H 102 H 99 H Pulse Rate [ Anterior Bilateral Throughout] Pulse Rate [ Apical] Respiratory Rate Respiratory Rate [Anterior Bilateral Throughout] Blood Pressure 100/56 93/53 99/48 O2 Sat by Pulse Oximetry O2 Sat by Pulse Oximetry [ Anterior Bilateral Throughout] O2 Sat by Pulse Oximetry [ Assessment] 05/11/19 05/11/19 05/11/19 12:00 12:15 12:30 Temperature Pulse Rate 99 H 97 H 98 H Pulse Rate [ Anterior Bilateral Throughout] Pulse Rate [ Apical] Respiratory Rate Respiratory Rate [Anterior Bilateral Throughout] Blood Pressure 96/57 94/54 94/56 O2 Sat by Pulse Oximetry O2 Sat by Pulse Oximetry [ Anterior Bilateral Throughout] O2 Sat by Pulse Oximetry [ Assessment] 05/11/19 05/11/19 05/11/19 12:45 13:00 13:15 Temperature Pulse Rate 97 H 98 H 94 H Pulse Rate [ Anterior Bilateral Throughout] Pulse Rate [ Apical] Respiratory Rate Respiratory Rate [Anterior Bilateral Throughout] Blood Pressure 100/60 94/53 100/58 O2 Sat by Pulse Oximetry O2 Sat by Pulse Oximetry [ Anterior Bilateral Throughout] O2 Sat by Pulse Oximetry [ Assessment] 05/11/19 05/11/19 05/11/19 13:30 13:45 14:00 Temperature Pulse Rate 97 H 94 H 96 H Pulse Rate [ Anterior Bilateral Throughout] Pulse Rate [ Apical] Respiratory Rate Respiratory Rate [Anterior Bilateral Throughout] Blood Pressure 90/57 96/58 92/57 O2 Sat by Pulse Oximetry O2 Sat by Pulse Oximetry [ Anterior Bilateral Throughout] O2 Sat by Pulse Oximetry [ Assessment] 05/11/19 14:15 Temperature 97.6 F Pulse Rate 89 Pulse Rate [ Anterior Bilateral Throughout] Pulse Rate [ Apical] Respiratory 16 Rate Respiratory Rate [Anterior Bilateral Throughout] Blood Pressure 100/57 O2 Sat by Pulse Oximetry O2 Sat by Pulse 100 Oximetry [ Anterior Bilateral Throughout] O2 Sat by Pulse Oximetry [ Assessment] - Labs CBC & Chem 7: 05/19/19 01:00 05/19/19 01:00 Labs: Abnormal lab results 05/10/19 05/11/19 05/11/19 Range/Units 17:18 00:20 06:30 POC Glucose 197 H 131 H 148 H (70-105)
[2019-05-11] MEDS ORDERED: IPRATROPIUM/ALBUTEROL SULFATE 3 ML AMPUL.NEB IH ONE (20:11)
[2019-05-12] MEDS: INSULIN REGULAR, HUMAN 100 UNITS/1 ML SUB-Q SCH ×4 (00:15→17:40)
[2019-05-12 07:31] LABS: Basophils # (Auto) 0.1 K/mm3 (0.0-0.1); Basophils % (Auto) 0.7 % (0.0-1.8); Eosinophils # (Auto) 0.6 K/mm3 (0.0-0.4); Eosinophils % (Auto) 6.5 % (0.0-4.3); Hematocrit 27.8 % (35.5-45.6); Hemoglobin 8.7 gm/dl (11.8-15.2); Lymphocytes # (Auto) 0.7 K/mm3 (1.2-5.4); Lymphocytes % (Auto) 6.9 % (13.4-35.0); Mean Corpuscular HGB Conc 31 % (32-34); Mean Corpuscular Volume 84 fl (84-94); Monocytes # (Auto) 0.7 K/mm3 (0.0-0.8); Monocytes % (Auto) 7.3 % (0.0-7.3); Platelet Count 325 K/mm3 (140-440); Red Blood Count 3.32 M/mm3 (3.65-5.03); Red Cell Distribution Width 19.8 % (13.2-15.2)
[2019-05-12 07:58] LABS: Calcium 9.5 mg/dL (8.4-10.2)
[2019-05-12] MEDS: IPRATROPIUM/ALBUTEROL SULFATE 3 ML AMPUL.NEB IH SCH ×3 (08:40→19:38)
[2019-05-12] MEDS: FAMOTIDINE 20 MG TAB PO SCH (09:45)
[2019-05-12] MEDS: SERTRALINE 100 MG TAB PO SCH (09:45)
[2019-05-12] MEDS: SODIUM HYPOCHLORITE, DAKIN'S 1/2 STRENGTH (0.25%) 473 ML TOPICAL SOLN TP SCH (09:45)
[2019-05-12] MEDS: risperiDONE 1 MG TAB PO SCH (09:45)
--- NOTE | 2019-05-12 10:51 | Progress Note ---
Assessment and Plan - Patient Problems (1) ESRD (end stage renal disease) on dialysis Current Visit: Yes Status: Chronic Plan to address problem: End stage renal disease : - access: Left arm AVG Continue hemodialysis Saturday (2) Diabetes mellitus, insulin dependent (IDDM), uncontrolled Current Visit: No Status: Acute Qualifiers: Glycemic state: with hyperglycemia Qualified Code(s): E10.65 - Type 1 diab etes mellitus with hyperglycemia Plan to address problem: DM type II uncontrolled Monitor Fingersticks (3) Anemia in chronic kidney disease, on chronic dialysis Current Visit: Yes Status: Acute Plan to address problem: Anemia of chronic kidney disease hemoglobin 8.8g/dl We'll give Epogen Monitor CBC (4) Hypertension Current Visit: Yes Status: Acute Qualifiers: Hypertension type: essential hypertension Qualified Code(s): I10 - Essential (primary) hypertension Plan to address problem: Hypertension controlled currently on Prn antihypertensives. Monitor blood pressure (5) Acute hypoxemic respiratory failure Current Visit: Yes Status: Acute Plan to address problem: Patient has tracheostomy with Tpiece in place. Chest x-ray reviewed with patchy opacities upper lung lynn Cultures obtained with Acinetobacter completed treatment with antibiotics. Ultrafiltration limited by hypotension repeat CXR with improvement in lung aeration. Subjective Principal diagnosis: Respiratory failure, acute on chronic systolic HF, ESRD Interval history: 63 year old Gentleman with medical history significant for ESRD on hemodialysis at [facility] on Saturday, Saturday and Saturday. via a left arm AVG admitted with acute respiratory failure; and hypotension prolonged hospital course received antibiotics for acinetobacter infection and s/p prolonged need for ventilation requiring Tracheostomy with T piece attached. Patient seen today has tracheostomy no lower extremity edema. continue HD MWF appears confused Objective - Vital Signs Vital signs: Vital Signs - 12hr 05/11/19 05/12/19 05/12/19 23:25 01:37 04:09 Temperature 97.9 F 97.3 F L Pulse Rate 102 H 89 Pulse Rate [ Apical] Respiratory 20 20 Rate Blood Pressure 113/63 120/65 O2 Sat by Pulse 87 98 100 Oximetry 05/12/19 05/12/19 05/12/19 07:35 08:06 08:36 Temperature 97.8 F Pulse Rate 64 91 H Pulse Rate [ 106 H Apical] Respiratory 16 Rate Blood Pressure 130/65 O2 Sat by Pulse 82 L Oximetry - General Appearance General appearance: chronically ill, frail EENT: ATNC, PERRL, mucous membranes moist Neck: no JVD Respiratory: Present: Decreased Breath Sounds Cardiology: regular, S1S2 Gastrointestinal: normal, normoactive bowel sounds Integumentary: no rash Neurologic: alert and oriented x3, CN 3-12 intact Psychiatric: mood/affect appropriate - Lab 05/12/19 07:15 05/12/19 07:15 Most recent lab results ABG pH 7.424 pH Units (7.350-7.450) 03/19/19 04:23 ABG pCO2 48.0 mm Hg 03/19/19 04:23 ABG pO2 78.3 mm Hg (80.0-90.0) L 03/19/19 04:23 ABG HCO3 30.7 mmol/L (20.0-26.0) H 03/19/19 04:23 ABG O2 Saturation 97.0 % (95.0-99.0) 03/19/19 04:23 Calcium 9.5 mg/dL (8.4-10.2) 05/12/19 07:15 Phosphorus 4.30 mg/dL (2.5-4.5) D 03/31/19 10:26 Magnesium 2.70 mg/dL (1.7-2.3) H 03/30/19 10:13 - Imaging Chest x-ray: image reviewed (I reviewed CXR with improvement in lower extremity edema. ) Medications & Allergies - Medications Allergies/Adverse Reactions: Allergies haloperidol [From Haldol] Adverse Reaction (Verified 03/13/18 12:10) Unknown haloperidol lactate [From Haldol] Adverse Reaction (Verified 03/13/18 12:10) Unknown Home Medications: Home Medications Medication Instructions Recorded Confirmed Last Taken Type risperiDONE [RisperDAL] 1 mg PO QAM 03/13/18 02/21/19 Unknown History Sertraline [Zoloft] 100 mg PO QDAY 08/26/18 02/21/19 Unknown History Polyethylene Glycol 3350 [Miralax 17 gm PO QDAY #30 packet 11/05/18 02/21/19 Unknown Rx 3350] Aspirin EC [Halfprin EC] 81 mg PO DAILY #30 11/19/18 02/21/19 Unknown Rx Docusate Sodium [Colace CAP] 100 mg PO BID #60 11/19/18 02/21/19 Unknown Rx Folic Acid [Folvite] 1 mg PO DAILY #30 tab 11/19/18 02/21/19 Unknown Rx Famotidine [Pepcid] 20 mg PO DAILY tablet 12/08/18 02/21/19 Unknown Rx Gabapentin [Neurontin] 100 mg PO QHS capsule 12/08/18 02/21/19 Unknown Rx Metoprolol [Lopressor TAB] 50 mg PO BID 30 Days tablet 12/08/18 02/21/19 Unknown Rx Sevelamer Carbonate [Renvela] 800 mg PO TIDWM tablet 12/08/18 02/21/19 Unknown Rx hydrALAZINE [Apresoline TAB] 100 mg PO Q8HR #120 tablet 12/08/18 02/21/19 Unknown Rx Acetaminophen [Acetaminophen TAB] 650 mg PO Q12H PRN 12/15/18 02/21/19 Unknown History Glucagon,Human Recombinant 1 mg IJ Q15MIN PRN 12/15/18 02/21/19 Unknown History [Glucagon Emergency Kit] Insulin Aspart [NovoLOG 100 See Protocol SQ QWEEK 12/15/18 02/21/19 Unknown History UNITS/ML VIAL] Active Medications: Generic Name Dose Route Start Last Admin Trade Name Freq PRN Reason Stop Dose Admin Albuterol/Ipratropium 1 ampul 02/24/19 20:00 05/12/19 08:40 Duoneb *Not For Prn Use* IH 1 ampul TIDRT SANCHEZ Administration Lipase/Protease/Amylase 1 each 04/10/19 15:16 Pancrejewel Barrientos 10,500 Unit FEEDTUBE PRN PRN For Clogged Feeding Tube Epoetin Solitario 20,000 unit 03/24/19 11:17 05/11/19 12:48 Procrit IV 20,000 unit UMA PRN Administration hemodialysis Famotidine 20 mg 02/23/19 10:00 05/12/19 09:45 Pepcid PO 20 mg DAILY SANCHEZ Administration Insulin Human Regular 0 units 02/26/19 12:00 05/12/19 06:31 Humulin R SUB-Q Not Given Q6HR [facility] Protocol Metoprolol Tartrate 2.5 mg 02/28/19 12:06 03/15/19 05:15 Lopressor IV 2.5 mg Q4HR PRN Administration Tachycardia Risperidone 1 mg 02/25/19 13:00 05/12/19 09:45 Risperdal PO 1 mg DAILY SANCHEZ Administration Sertraline HCl 100 mg 02/25/19 13:00 05/12/19 09:45 Zoloft PO 100 mg DAILY SANCHEZ Administration Simple Syrup 15 ml 04/10/19 15:16 Simple Syrup FEEDTUBE PRN PRN Hypoglycemia Simple Syrup 30 ml 04/10/19 15:16 Simple Syrup FEEDTUBE PRN PRN Hypoglycemia Sodium Bicarbonate 325 mg 04/10/19 15:16 Sodium Bicarbonate FEEDTUBE PRN PRN For Clogged Feeding Tube Sodium Hypochlorite 1 applic 04/01/19 13:00 05/12/19 09:45 Dakin's Half Strength TP 1 applicatio BID SANCHEZ Administration
--- NOTE | 2019-05-12 16:26 | Progress Note ---
Assessment and Plan Assessment and plan: Patient is a 63-year-old -[place] man from [facility] with a plethora of co-morbidities including blindness, CVA, CHF, PPM/ICD, loop recorder since 2012 that is MRI compatible, IDDM type 2, sepsis left foot ulcer, afib, ESRD with complications on HD TTS, hypertension, AOCD and GERD who presented to the ED with hypotensive after intubation in the emergency room. Still intubated, diagnosed with fluid overload, pleural effusion. Patient has had recurrent admission in the hospital for similar reason and was recently discharged from the hospital following treatment of Severe Sepsis due to Necrotizing Unstagable sacral decubitus ulcer with ostemomylitis, expected to complete abx on discharg e till 02/16/19. Trach and peg done HR control improved with change in BB. Acute respiratory failure on mechanical ventilator >96 hrs Trach placed on 03/03/19 Pulm consult appreciated weaning trial VAP BUNDLE ASPIRATION BUNDLE Continue T-piece Finished therapy for Acinetobacter Acute pulmonary edema, fluid overload on CXR repeat xray intermittently Dialysis Necrotizing Unstagable sacral decubitus ulcer with ostemomyelitis Wound care, Dilated CMP Cardiomyiopathy EF 35-40% Continue diuresis PPM/ICD Acute encephalopathy, probably metabolic or toxic Continues on Mechanical ventilator. ESRD on hemodialysis nephrology following Vascular eval. done re: LUE AV graft, see note Bilateral pleural effusions Anticipate improvement with Permanent atrial fibrillation and flutter Not on anticoagulation because of anemia thrombocytopenia Change noted to BB agent to IV. 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 -Pt is s/p x1 DDVAP RUL atelectasis, nebs as needed DVT prophylaxis Lovenox DNR poor prognosis Disposition: Awaiting on HD setup History Interval history: Patient was seen and examined. Follow-up on current diagnosis. No overnight events reported to me. Patient is mainly nonverbal. Imaging, nursing note, chart, labs and old chart reviewed. Hospitalist Physical - Physical exam Narrative exam: Gen: severely disable, nad, awake alert x 1 HEENT: NCAT, EOMI, PERRL, OP Clear Neck: supple, trach CVS/Heart: irreg irregular, normal S1S2, pulses present bilaterally Chest/Lungs: diminished bs ymmetrical chest expansion, good air entry bilaterally GI/Abdomen:peg, colostomy present, good bowel sounds, no guarding or rebound /Bladder: no suprapubic tenderness, no CVA or paraspinal tenderness Extermity/Skin: no c/c/e, no obvious rash MSK: no FROM x 4 Neuro: CN 2-12 grossly intact except vision, no new focal deficits Psych: calm - Constitutional Vitals: Temp Pulse Resp BP Pulse Ox 97.8 F 105 H 16 118/67 89 05/12/19 15:48 05/12/19 15:48 05/12/19 15:48 05/12/19 15:48 05/12/19 15:48 General appearance: Present: no acute distress, well-nourished, other (T peace) Results - Labs CBC & Chem 7: 05/12/19 07:15 05/12/19 07:15 Labs: Laboratory Last Values WBC 9.9 K/mm3 (4.5-11.0) 05/12/19 07:15 RBC 3.32 M/mm3 (3.65-5.03) L 05/12/19 07:15 Hgb 8.7 gm/dl (11.8-15.2) L 05/12/19 07:15 Hct 27.8 % (35.5-45.6) L 05/12/19 07:15 MCV 84 fl (84-94) 05/12/19 07:15 MCH 26 pg (28-32) L 05/12/19 07:15 MCHC 31 % (32-34) L 05/12/19 07:15 RDW 19.8 % (13.2-15.2) H 05/12/19 07:15 Plt Count 325 K/mm3 (140-440) 05/12/19 07:15 Lymph % (Auto) 6.9 % (13.4-35.0) L 05/12/19 07:15 [place] % (Auto) 7.3 % (0.0-7.3) 05/12/19 07:15 Eos % (Auto) 6.5 % (0.0-4.3) H 05/12/19 07:15 Baso % (Auto) 0.7 % (0.0-1.8) 05/12/19 07:15 Lymph # 0.7 K/mm3 (1.2-5.4) L 05/12/19 07:15 [place] # 0.7 K/mm3 (0.0-0.8) 05/12/19 07:15 Eos # 0.6 K/mm3 (0.0-0.4) H 05/12/19 07:15 Baso # 0.1 K/mm3 (0.0-0.1) 05/12/19 07:15 Add Manual Diff Complete 03/21/19 06:30 Total Counted 100 03/21/19 06:30 Seg Neutrophils % 78.6 % (40.0-70.0) H 05/12/19 07:15 Seg Neuts % (Manual) 81.0 % (40.0-70.0) H 03/21/19 06:30 Band Neutrophils % 0 % 03/21/19 06:30 Lymphocytes % (Manual) 8.0 % (13.4-35.0) L 03/21/19 06:30 Reactive Lymphs % (Man) 0 % 03/21/19 06:30 Monocytes % (Manual) 1.0 % (0.0-7.3) 03/21/19 06:30 Eosinophils % (Manual) 8.0 % (0.0-4.3) H 03/21/19 06:30 Basophils % (Manual) 1.0 % (0.0-1.8) 03/21/19 06:30 Metamyelocytes % 1.0 % 03/21/19 06:30 Myelocytes % 0 % 03/21/19 06:30 Promyelocytes % 0 % 03/21/19 06:30 Blast Cells % 0 % 03/21/19 06:30 Nucleated RBC % Not Reportable 03/21/19 06:30 Seg Neutrophils # 7.8 K/mm3 (1.8-7.7) H 05/12/19 07:15 Seg Neutrophils # Man 6.7 K/mm3 (1.8-7.7) 03/21/19 06:30 Band Neutrophils # 0.0 K/mm3 03/21/19 06:30 Lymphocytes # (Manual) 0.7 K/mm3 (1.2-5.4) L 03/21/19 06:30 Abs React Lymphs (Man) 0.0 K/mm3 03/21/19 06:30 Monocytes # (Manual) 0.1 K/mm3 (0.0-0.8) 03/21/19 06:30 Eosinophils # (Manual) 0.7 K/mm3 (0.0-0.4) H 03/21/19 06:30 Basophils # (Manual) 0.1 K/mm3 (0.0-0.1) 03/21/19 06:30 Metamyelocytes # 0.1 K/mm3 03/21/19 06:30 Myelocytes # 0.0 K/mm3 03/21/19 06:30 Promyelocytes # 0.0 K/mm3 03/21/19 06:30 Blast Cells # 0.0 K/mm3 03/21/19 06:30 WBC Morphology Not Reportable 03/21/19 06:30 Hypersegmented Neuts Not Reportable 03/21/19 06:30 Hyposegmented Neuts Not Reportable 03/21/19 06:30 Hypogranular Neuts Not Reportable 03/21/19 06:30 Smudge Cells Not Reportable 03/21/19 06:30 Toxic Granulation Not Reportable 03/21/19 06:30 Toxic Vacuolation Not Reportable 03/21/19 06:30 Dohle Bodies Not Reportable 03/21/19 06:30 Pelger-Huet Anomaly Not Reportable 03/21/19 06:30 Tramaine Rods Not Reportable 03/21/19 06:30 Platelet Estimate Consistent w auto 03/21/19 06:30 Clumped Platelets Not Reportable 03/21/19 06:30 Plt Clumps, EDTA Not Reportable 03/21/19 06:30 Large Platelets Not Reportable 03/21/19 06:30 Giant Platelets Not Reportable 03/21/19 06:30 Platelet Satelliting Not Reportable 03/21/19 06:30 Plt Morphology Comment Not Reportable 03/21/19 06:30 RBC Morphology Not Reportable 03/21/19 06:30 Dimorphic RBCs Not Reportable 03/21/19 06:30 Polychromasia Not Reportable 03/21/19 06:30 Hypochromasia Few 03/21/19 06:30 Poikilocytosis Few 03/21/19 06:30 Anisocytosis Few 03/21/19 06:30 Microcytosis Not Reportable 03/21/19 06:30 Macrocytosis Not Reportable 03/21/19 06:30 Spherocytes Not Reportable 03/21/19 06:30 Pappenheimer Bodies Not Reportable 03/21/19 06:30 Sickle Cells Not Reportable 03/21/19 06:30 Target Cells 1+ 03/21/19 06:30 Tear Drop Cells Not Reportable 03/21/19 06:30 Ovalocytes Few 03/21/19 06:30 Helmet Cells Not Reportable 03/21/19 06:30 [place] Bodies Not Reportable 03/21/19 06:30 [place] Rings Not Reportable 03/21/19 06:30 [place] Cells Not Reportable 03/21/19 06:30 Bite Cells Not Reportable 03/21/19 06:30 Crenated Cell Not Reportable 03/21/19 06:30 Elliptocytes Not Reportable 03/21/19 06:30 Acanthocytes (Spur) Not Reportable 03/21/19 06:30 Rouleaux Not Reportable 03/21/19 06:30 Hemoglobin C Crystals Not Reportable 03/21/19 06:30 Schistocytes Not Reportable 03/21/19 06:30 Malaria parasites Not Reportable 03/21/19 06:30 Jose Juan Bodies Not Reportable 03/21/19 06:30 Hem Pathologist Commnt No 03/21/19 06:30 PT 16.3 Sec. (12.2-14.9) H 03/01/19 09:39 INR 1.35 (0.87-1.13) H 03/01/19 09:39 APTT 33.7 Sec. (24.2-36.6) 02/21/19 18:30 D-Dimer 2987.82 ng/mlDDU (0-234) H 02/22/19 05:54 POC ABG pH 7.510 (7.35-7.45) H 03/18/19 06:38 ABG pH 7.424 pH Units (7.350-7.450) 03/19/19 04:23 POC ABG pCO2 38.9 (35-45) 03/18/19 06:38 ABG pCO2 48.0 mm Hg 03/19/19 04:23 POC ABG pO2 164 (80-105) H 03/18/19 06:38 ABG pO2 78.3 mm Hg (80.0-90.0) L 03/19/19 04:23 POC ABG HCO3 31.0 (22-26 mml/L) 03/18/19 06:38 ABG HCO3 30.7 mmol/L (20.0-26.0) H 03/19/19 04:23 POC ABG Total CO2 32 (23-27mmol/L) 03/18/19 06:38 POC ABG O2 Sat 100 03/18/19 06:38 ABG O2 Saturation 97.0 % (95.0-99.0) 03/19/19 04:23 ABG O2 Content 7.9 (0.0-44) 03/19/19 04:23 POC ABG Base Excess 8 ((-2) - (+3)mmol/L) 03/18/19 06:38 ABG Base Excess 5.8 mmol/L (-2.0-3.0) H 03/19/19 04:23 ABG Hemoglobin 5.8 gm/dl (14.0-18.0) L 03/19/19 04:23 ABG Carboxyhemoglobin 2.0 % (0.0-5.0) 03/19/19 04:23 ABG Methemoglobin 0.4 % (0.0-1.5) 03/19/19 04:23 Oxyhemoglobin 94.6 % (95.0-99.0) L 03/19/19 04:23 FiO2 35 % 03/19/19 04:23 Sodium 135 mmol/L (137-145) L 05/12/19 07:15 Potassium 3.7 mmol/L (3.6-5.0) 05/12/19 07:15 Chloride 94.2 mmol/L (98-107) L 05/12/19 07:15 Carbon Dioxide 26 mmol/L (22-30) 05/12/19 07:15 Anion Gap 19 mmol/L 05/12/19 07:15 BUN 59 mg/dL (9-20) H 05/12/19 07:15 Creatinine 3.4 mg/dL (0.8-1.5) H 05/12/19 07:15 Estimated GFR 22 ml/min 05/12/19 07:15 BUN/Creatinine Ratio 17 % 05/12/19 07:15 Glucose 134 mg/dL (75-100) H 05/12/19 07:15 POC Glucose 132 (70-105) H 05/12/19 11:17 Lactic Acid 1.00 mmol/L (0.7-2.0) 02/21/19 20:58 Calcium 9.5 mg/dL (8.4-10.2) 05/12/19 07:15 Phosphorus 4.30 mg/dL (2.5-4.5) D 03/31/19 10:26 Magnesium 2.70 mg/dL (1.7-2.3) H 03/30/19 10:13 Total Bilirubin 0.20 mg/dL (0.1-1.2) 03/30/19 10:13 AST 16 units/L (5-40) 03/30/19 10:13 ALT 11 units/L (7-56) 03/30/19 10:13 Alkaline Phosphatase 185 units/L (35-129) H 03/30/19 10:13 Ammonia 28.0 umol/L (25-60) 02/21/19 20:04 Total Creatine Kinase 64 units/L (55-170) 02/22/19 03:42 CK-MB (CK-2) 3.7 ng/mL (0.0-4.0) 02/22/19 03:42 CK-MB (CK-2) Rel Index 5.7 (0-4) H 02/22/19 03:42 Troponin T 0.193 ng/mL (0.00-0.029) H* 02/22/19 03:42 Total Protein 6.9 g/dL (6.3-8.2) 03/30/19 10:13 Albumin 2.6 g/dL (3.9-5) L 03/30/19 10:13 Albumin/Globulin Ratio 0.6 % 03/30/19 10:13 Triglycerides 51 mg/dL (2-149) 02/21/19 18:30 Cholesterol 82 mg/dL (50-199) 02/21/19 18:30 LDL Cholesterol Direct 36 mg/dL (50-130) L 02/21/19 18:30 HDL Cholesterol 40 mg/dL (40-59) 02/21/19 18:30 Cholesterol/HDL Ratio 2.05 % 02/21/19 18:30 TSH 2.760 mlU/mL (0.270-4.200) 02/21/19 20:04 PTH Intact 267.6 pg/mL (15-65) H 03/02/19 05:15 Salicylates < 0.3 mg/dL (2.8-20.0) L 02/21/19 20:04 Acetaminophen < 5.0 ug/mL (10.0-30.0) L 02/21/19 20:04 Hepatitis A IgM Ab Non-reactive (NonReactive) 04/30/19 14:11 Hep Bs Antigen Non-reactive (Negative) 04/30/19 14:11 Hep B Core IgM Ab Non-reactive (NonReactive) 04/30/19 14:11 Hepatitis C Antibody Non-reactive (NonReactive) 04/30/19 14:11 Blood Type O POSITIVE 05/04/19 12:55 Antibody Screen Negative 05/04/19 12:55 Crossmatch See Detail 05/04/19 12:55 Active Medications - Current Medications Current Medications: Generic Name Dose Route Start Last Admin Trade Name Freq PRN Reason Stop Dose Admin Albuterol/Ipratropium 1 ampul 02/24/19 20:00 05/12/19 15:10 Duoneb *Not For Prn Use* IH 1 ampul TIDRT SANCHEZ Administration Lipase/Protease/Amylase 1 each 04/10/19 15:16 Pancreaze 10,500 Unit FEEDTUBE PRN PRN For Clogged Feeding Tube Epoetin Solitario 20,000 unit 03/24/19 11:17 05/11/19 12:48 Procrit IV 20,000 unit UMA PRN Administration hemodialysis Famotidine 20 mg 02/23/19 10:00 05/12/19 09:45 Pepcid PO 20 mg DAILY SANCHEZ Administration Insulin Human Regular 0 units 02/26/19 12:00 05/12/19 11:44 Humulin R SUB-Q Not Given Q6HR [facility] Protocol Metoprolol Tartrate 2.5 mg 02/28/19 12:06 03/15/19 05:15 Lopressor IV 2.5 mg Q4HR PRN Administration Tachycardia Risperidone 1 mg 02/25/19 13:00 05/12/19 09:45 Risperdal PO 1 mg DAILY SANCHEZ Administration Sertraline HCl 100 mg 02/25/19 13:00 05/12/19 09:45 Zoloft PO 100 mg DAILY SANCHEZ Administration Simple Syrup 15 ml 04/10/19 15:16 Simple Syrup FEEDTUBE PRN PRN Hypoglycemia Simple Syrup 30 ml 04/10/19 15:16 Simple Syrup FEEDTUBE PRN PRN Hypoglycemia Sodium Bicarbonate 325 mg 04/10/19 15:16 Sodium Bicarbonate FEEDTUBE PRN PRN For Clogged Feeding Tube Sodium Hypochlorite 1 applic 04/01/19 13:00 05/12/19 09:45 Dakin's Half Strength TP 1 applicatio BID SANCHEZ Administration Nutrition/Malnutrition Assess - Dietary Evaluation Nutrition/Malnutrition Findings: Nutrition Notes Start: 02/22/19 12:51 Freq: Status: Active Protocol: Document 05/08/19 15:04 RM (Rec: 05/08/19 15:15 RM [id number]) Nutrition Notes Initial or Follow up Reassessment Current Diagnosis Diabetes,Hypertension,Heart Failure Other Pertinent Diagnosis Sacral PU, ESRD on HD (T/Thurs /Sat), Schizophrenia,Blind in L eye,S/P trach Current Diet Nepro at 50 ml/hr w/Abhilash BID Labs/Tests POC 143, 153, 204 Pertinent Medications Reviewed Height 5 ft 10 in Weight 68.1 kg [place] Body Weight (kg) 75.45 BMI 21.5 Weight change and time frame Wt loss noted. Likely d/t fluid change. Subjective/Other Information Observed Nepro infusing at goal rate. Per nurse pt is tolerating TF and receiving Abhilash. Percent of energy/protein needs met: 100%/100% Burn Absent Trauma Absent Minimum of two criteria No #2 Nutrition Diagnosis Increased nutrient needs ( specify in comment below) Diagnosis Progress(for reassessment Continues documentation) #1 Nutrition Diagnosis Inadequate oral intake Diagnosis Progress(for reassessment Continues documentation) Is patient on ventilator? No Is Patient Ambulatory and/or Out of Bed No REE-([place]-confined to bed) 1778.028 Kcal/Kg value to use for calculation 31 Approximate Energy Requirements Using 2111 kcal/Kg Calculation Used for Recommendations [facility] Additional Notes Protein Needs:90 - 112 g (1.2- 1.5 g/kg) Fluid Needs: 1-1.5 L/day Nutrition Intervention Change Diet Order: Continue TF Nutrition Support: Nepro with Carbsteady 1.8 at 50 ml/hr Flush 200 ml q4hr Kcal 2,160 Protein (gm) 97 Fluid (mL) 872 Add Supplement/Snack (indicate name/kcal Abhilash BID /protein ) Provides kCal: 190 Provides Protein (gm) 5 Goal #1 TF tolerance Goal #2 Continue to meet at least 75% of calorie and protein needs via TF Anticipated Discharge Needs: TF Follow-Up By: 05/15/19 Additional Comments Follow for TF tolerance
[2019-05-13] MEDS: INSULIN REGULAR, HUMAN 100 UNITS/1 ML SUB-Q SCH ×4 (00:25→16:20)
[2019-05-13] MEDS: SODIUM HYPOCHLORITE, DAKIN'S 1/2 STRENGTH (0.25%) 473 ML TOPICAL SOLN TP SCH ×3 (05:21→22:34)
[2019-05-13] MEDS: IPRATROPIUM/ALBUTEROL SULFATE 3 ML AMPUL.NEB IH SCH ×3 (08:06→20:23)
[2019-05-13] MEDS: SERTRALINE 100 MG TAB PO SCH (09:44)
[2019-05-13] MEDS: FAMOTIDINE 20 MG TAB PO SCH (09:44)
[2019-05-13] MEDS: risperiDONE 1 MG TAB PO SCH (09:44)
[2019-05-13] MEDS ORDERED: SODIUM CHLORIDE 0.9% 100 ML IV PRN (12:45)
--- NOTE | 2019-05-13 13:31 | Progress Note ---
Assessment and Plan 63 y/o male with multiple medical issues admitted with altered mental status, acute respiratory failure requiring mechanical ventilation 1. Continue capping trials. Nasal cannula therapy. 2. HD per renal 3. PT/OT if possible 4. CM working on placement 5. No objection to discharge once placement is found Subjective Date of service: 05/13/19 Principal diagnosis: Respiratory failure, acute on chronic systolic HF, ESRD Interval history: No acute events. Objective Vital Signs - 12hr 05/13/19 05/13/19 05/13/19 03:58 04:11 07:24 Temperature 98.0 F 98.1 F Pulse Rate 94 H Pulse Rate [ Anterior Bilateral Throughout] Pulse Rate [ From Monitor] Respiratory 18 18 Rate Respiratory Rate [Anterior Bilateral Throughout] Blood Pressure 123/57 143/72 O2 Sat by Pulse 91 Oximetry O2 Sat by Pulse 99 Oximetry [ Assessment] 05/13/19 05/13/19 05/13/19 08:31 08:32 10:00 Temperature Pulse Rate Pulse Rate [ 108 H Anterior Bilateral Throughout] Pulse Rate [ 102 H From Monitor] Respiratory Rate Respiratory 22 Rate [Anterior Bilateral Throughout] Blood Pressure O2 Sat by Pulse 99 Oximetry O2 Sat by Pulse Oximetry [ Assessment] Constitutional: no acute distress, alert Eyes: non-icteric ENT: oropharynx moist Neck: supple Effort: normal Ascultation: Bilateral: diminished breath sounds, other (coarse BS bilaterally) Percussion: Bilateral: not dull Cardiovascular: regular rate and rhythm (no mrg) Gastrointestinal: normoactive bowel sounds, soft, non-tender, non-distended, other (ostomy in place, brown stool) Extremities: no cyanosis, no edema, pink and warm Neurologic: other (mild weakness LUE, o/w nonfocal) Psychiatric: other (unable to assess) CBC and BMP: 05/12/19 07:15 05/12/19 07:15 ABG, PT/INR, D-dimer: ABG POC ABG pH 7.510 (7.35-7.45) H 03/18/19 06:38 ABG pH 7.424 pH Units (7.350-7.450) 03/19/19 04:23 POC ABG pCO2 38.9 (35-45) 03/18/19 06:38 ABG pCO2 48.0 mm Hg 03/19/19 04:23 POC ABG pO2 164 (80-105) H 03/18/19 06:38 ABG pO2 78.3 mm Hg (80.0-90.0) L 03/19/19 04:23 POC ABG HCO3 31.0 (22-26 mml/L) 03/18/19 06:38 POC ABG Total CO2 32 (23-27mmol/L) 03/18/19 06:38 POC ABG O2 Sat 100 03/18/19 06:38 ABG O2 Saturation 97.0 % (95.0-99.0) 03/19/19 04:23 PT/INR, D-dimer PT 16.3 Sec. (12.2-14.9) H 03/01/19 09:39 INR 1.35 (0.87-1.13) H 03/01/19 09:39 D-Dimer 2987.82 ng/mlDDU (0-234) H 02/22/19 05:54 Abnormal lab findings: Abnormal Labs 02/21/19 02/21/19 02/21/19 18:30 18:30 18:30 WBC RBC 3.26 L Hgb 8.8 L Hct 29.0 L MCV MCH 27 L MCHC 30 L RDW 19.1 H Plt Count Lymph % (Auto) 6.1 L [place] % (Auto) Eos % (Auto) Baso % (Auto) Lymph # 0.4 L [place] # Eos # Baso # Seg Neutrophils % 86.2 H Seg Neuts % (Manual) Lymphocytes % (Manual) Eosinophils % (Manual) Seg Neutrophils # Lymphocytes # (Manual) Eosinophils # (Manual) PT INR D-Dimer POC ABG pH POC ABG pCO2 POC ABG pO2 ABG pO2 ABG HCO3 ABG Base Excess ABG Hemoglobin Oxyhemoglobin Sodium 133 L Potassium 3.3 L Chloride 93.1 L Carbon Dioxide 33 H BUN Creatinine Glucose 161 H POC Glucose Calcium Phosphorus Magnesium ALT Alkaline Phosphatase 136 H Total Creatine Kinase 37 L CK-MB (CK-2) Rel Index Troponin T 0.192 H* Albumin 2.4 L LDL Cholesterol Direct 36 L PTH Intact Salicylates Acetaminophen Crossmatch 02/21/19 02/21/19 02/21/19 18:42 20:04 20:04 WBC RBC Hgb Hct MCV MCH MCHC RDW Plt Count Lymph % (Auto) [place] % (Auto) Eos % (Auto) Baso % (Auto) Lymph # [place] # Eos # Baso # Seg Neutrophils % Seg Neuts % (Manual) Lymphocytes % (Manual) Eosinophils % (Manual) Seg Neutrophils # Lymphocytes # (Manual) Eosinophils # (Manual) PT INR D-Dimer POC ABG pH POC ABG pCO2 56.7 H POC ABG pO2 291 H ABG pO2 ABG HCO3 ABG Base Excess ABG Hemoglobin Oxyhemoglobin Sodium Potassium Chloride Carbon Dioxide BUN Creatinine Glucose POC Glucose Calcium Phosphorus Magnesium ALT Alkaline Phosphatase Total Creatine Kinase CK-MB (CK-2) Rel Index Troponin T Albumin LDL Cholesterol Direct PTH Intact Salicylates < 0.3 L Acetaminophen < 5.0 L Crossmatch 02/21/19 02/22/19 02/22/19 22:35 03:42 03:42 WBC RBC 3.20 L Hgb 8.8 L Hct 27.6 L MCV MCH MCHC RDW 18.9 H Plt Count Lymph % (Auto) 7.4 L [place] % (Auto) Eos % (Auto) Baso % (Auto) Lymph # 0.7 L [place] # Eos # Baso # Seg Neutrophils % 84.7 H Seg Neuts % (Manual) Lymphocytes % (Manual) Eosinophils % (Manual) Seg Neutrophils # Lymphocytes # (Manual) Eosinophils # (Manual) PT INR D-Dimer POC ABG pH POC ABG pCO2 POC ABG pO2 ABG pO2 ABG HCO3 ABG Base Excess ABG Hemoglobin Oxyhemoglobin Sodium 134 L Potassium 2.6 L* D Chloride Carbon Dioxide BUN Creatinine Glucose POC Glucose Calcium Phosphorus Magnesium ALT Alkaline Phosphatase Total Creatine Kinase CK-MB (CK-2) Rel Index 5.2 H Troponin T 0.202 H* Albumin LDL Cholesterol Direct PTH Intact Salicylates Acetaminophen Crossmatch 02/22/19 02/22/19 02/22/19 03:42 05:54 09:04 WBC RBC Hgb Hct MCV MCH MCHC RDW Plt Count Lymph % (Auto) [place] % (Auto) Eos % (Auto) Baso % (Auto) Lymph # [place] # Eos # Baso # Seg Neutrophils % Seg Neuts % (Manual) Lymphocytes % (Manual) Eosinophils % (Manual) Seg Neutrophils # Lymphocytes # (Manual) Eosinophils # (Manual) PT INR D-Dimer 2987.82 H POC ABG pH 7.451 H POC ABG pCO2 POC ABG pO2 ABG pO2 ABG HCO3 ABG Base Excess ABG Hemoglobin Oxyhemoglobin Sodium Potassium Chloride Carbon Dioxide BUN Creatinine Glucose POC Glucose Calcium Phosphorus Magnesium ALT Alkaline Phosphatase Total Creatine Kinase CK-MB (CK-2) Rel Index 5.7 H Troponin T 0.193 H* Albumin LDL Cholesterol Direct PTH Intact Salicylates Acetaminophen Crossmatch 02/22/19 02/22/19 02/23/19 10:36 23:56 00:52 WBC RBC Hgb Hct MCV MCH MCHC RDW Plt Count Lymph % (Auto) [place] % (Auto) Eos % (Auto) Baso % (Auto) Lymph # [place] # Eos # Baso # Seg Neutrophils % Seg Neuts % (Manual) Lymphocytes % (Manual) Eosinophils % (Manual) Seg Neutrophils # Lymphocytes # (Manual) Eosinophils # (Manual) PT INR D-Dimer POC ABG pH POC ABG pCO2 POC ABG pO2 ABG pO2 ABG HCO3 ABG Base Excess ABG Hemoglobin Oxyhemoglobin Sodium Potassium 3.1 L Chloride Carbon Dioxide BUN Creatinine Glucose POC Glucose 58 L 111 H Calcium Phosphorus Magnesium ALT Alkaline Phosphatase Total Creatine Kinase CK-MB (CK-2) Rel Index Troponin T Albumin LDL Cholesterol Direct PTH Intact Salicylates Acetaminophen Crossmatch 02/23/19 02/23/19 02/23/19 05:00 06:35 14:26 WBC RBC Hgb Hct MCV MCH MCHC RDW Plt Count Lymph % (Auto) [place] % (Auto) Eos % (Auto) Baso % (Auto) Lymph # [place] # Eos # Baso # Seg Neutrophils % Seg Neuts % (Manual) Lymphocytes % (Manual) Eosinophils % (Manual) Seg Neutrophils # Lymphocytes # (Manual) Eosinophils # (Manual) PT INR D-Dimer POC ABG pH POC ABG pCO2 POC ABG pO2 ABG pO2 ABG HCO3 ABG Base Excess ABG Hemoglobin Oxyhemoglobin Sodium 135 L Potassium 3.1 L Chloride Carbon Dioxide BUN 21 H Creatinine 2.0 H Glucose 57 L POC Glucose 64 L 62 L Calcium Phosphorus Magnesium ALT Alkaline Phosphatase Total Creatine Kinase CK-MB (CK-2) Rel Index Troponin T Albumin LDL Cholesterol Direct PTH Intact Salicylates Acetaminophen Crossmatch 02/24/19 02/24/19 02/24/19 02:11 04:12 04:55 WBC RBC 2.84 L Hgb 7.8 L Hct 24.5 L MCV MCH MCHC RDW 19.5 H Plt Count Lymph % (Auto) [place] % (Auto) Eos % (Auto) Baso % (Auto) Lymph # [place] # Eos # Baso # Seg Neutrophils % Seg Neuts % (Manual) Lymphocytes % (Manual) Eosinophils % (Manual) Seg Neutrophils # Lymphocytes # (Manual) Eosinophils # (Manual) PT INR D-Dimer POC ABG pH 7.511 H POC ABG pCO2 33.9 L POC ABG pO2 62 L ABG pO2 ABG HCO3 ABG Base Excess ABG Hemoglobin Oxyhemoglobin Sodium Potassium Chloride Carbon Dioxide BUN Creatinine Glucose POC Glucose 69 L Calcium Phosphorus Magnesium ALT Alkaline Phosphatase Total Creatine Kinase CK-MB (CK-2) Rel Index Troponin T Albumin LDL Cholesterol Direct PTH Intact Salicylates Acetaminophen Crossmatch 02/24/19 02/24/19 02/25/19 04:55 05:41 04:45 WBC RBC Hgb Hct MCV MCH MCHC RDW Plt Count Lymph % (Auto) [place] % (Auto) Eos % (Auto) Baso % (Auto) Lymph # [place] # Eos # Baso # Seg Neutrophils % Seg Neuts % (Manual) Lymphocytes % (Manual) Eosinophils % (Manual) Seg Neutrophils # Lymphocytes # (Manual) Eosinophils # (Manual) PT INR D-Dimer POC ABG pH 7.466 H POC ABG pCO2 POC ABG pO2 75 L ABG pO2 ABG HCO3 ABG Base Excess ABG Hemoglobin Oxyhemoglobin Sodium Potassium Chloride Carbon Dioxide BUN Creatinine 1.8 H Glucose 73 L POC Glucose 127 H Calcium Phosphorus Magnesium ALT Alkaline Phosphatase Total Creatine Kinase CK-MB (CK-2) Rel Index Troponin T Albumin LDL Cholesterol Direct PTH Intact Salicylates Acetaminophen Crossmatch 02/25/19 02/25/19 02/26/19 16:34 21:33 03:45 WBC RBC 2.96 L Hgb 8.0 L Hct 25.8 L MCV MCH 27 L MCHC 31 L RDW 20.0 H Plt Count Lymph % (Auto) [place] % (Auto) Eos % (Auto) Baso % (Auto) Lymph # [place] # Eos # Baso # Seg Neutrophils % Seg Neuts % (Manual) Lymphocytes % (Manual) Eosinophils % (Manual) Seg Neutrophils # Lymphocytes # (Manual) Eosinophils # (Manual) PT INR D-Dimer POC ABG pH POC ABG pCO2 POC ABG pO2 ABG pO2 ABG HCO3 ABG Base Excess ABG Hemoglobin Oxyhemoglobin Sodium Potassium Chloride Carbon Dioxide BUN Creatinine Glucose POC Glucose 141 H 106 H Calcium Phosphorus Magnesium ALT Alkaline Phosphatase Total Creatine Kinase CK-MB (CK-2) Rel Index Troponin T Albumin LDL Cholesterol Direct PTH Intact Salicylates Acetaminophen Crossmatch 02/26/19 02/26/19 02/26/19 03:45 04:13 07:53 WBC RBC Hgb Hct MCV MCH MCHC RDW Plt Count Lymph % (Auto) [place] % (Auto) Eos % (Auto) Baso % (Auto) Lymph # [place] # Eos # Baso # Seg Neutrophils % Seg Neuts % (Manual) Lymphocytes % (Manual) Eosinophils % (Manual) Seg Neutrophils # Lymphocytes # (Manual) Eosinophils # (Manual) PT INR D-Dimer POC ABG pH 7.470 H POC ABG pCO2 POC ABG pO2 ABG pO2 ABG HCO3 ABG Base Excess ABG Hemoglobin Oxyhemoglobin Sodium Potassium Chloride Carbon Dioxide BUN Creatinine 1.8 H Glucose POC Glucose 110 H Calcium Phosphorus Magnesium ALT Alkaline Phosphatase Total Creatine Kinase CK-MB (CK-2) Rel Index Troponin T Albumin LDL Cholesterol Direct PTH Intact Salicylates Acetaminophen Crossmatch 02/26/19 02/26/19 02/27/19 11:56 17:43 00:12 WBC RBC Hgb Hct MCV MCH MCHC RDW Plt Count Lymph % (Auto) [place] % (Auto) Eos % (Auto) Baso % (Auto) Lymph # [place] # Eos # Baso # Seg Neutrophils % Seg Neuts % (Manual) Lymphocytes % (Manual) Eosinophils % (Manual) Seg Neutrophils # Lymphocytes # (Manual) Eosinophils # (Manual) PT INR D-Dimer POC ABG pH POC ABG pCO2 POC ABG pO2 ABG pO2 ABG HCO3 ABG Base Excess ABG Hemoglobin Oxyhemoglobin Sodium Potassium Chloride Carbon Dioxide BUN Creatinine Glucose POC Glucose 112 H 127 H 127 H Calcium Phosphorus Magnesium ALT Alkaline Phosphatase Total Creatine Kinase CK-MB (CK-2) Rel Index Troponin T Albumin LDL Cholesterol Direct PTH Intact Salicylates Acetaminophen Crossmatch 02/27/19 02/27/19 02/27/19 04:35 13:15 18:02 WBC RBC Hgb Hct MCV MCH MCHC RDW Plt Count Lymph % (Auto) [place] % (Auto) Eos % (Auto) Baso % (Auto) Lymph # [place] # Eos # Baso # Seg Neutrophils % Seg Neuts % (Manual) Lymphocytes % (Manual) Eosinophils % (Manual) Seg Neutrophils # Lymphocytes # (Manual) Eosinophils # (Manual) PT INR D-Dimer POC ABG pH 7.483 H POC ABG pCO2 POC ABG pO2 61 L ABG pO2 ABG HCO3 ABG Base Excess ABG Hemoglobin Oxyhemoglobin Sodium Potassium Chloride Carbon Dioxide BUN Creatinine Glucose POC Glucose 143 H 106 H Calcium Phosphorus Magnesium ALT Alkaline Phosphatase Total Creatine Kinase CK-MB (CK-2) Rel Index Troponin T Albumin LDL Cholesterol Direct PTH Intact Salicylates Acetaminophen Crossmatch 02/28/19 02/28/19 02/28/19 05:50 11:59 17:52 WBC RBC Hgb Hct MCV MCH MCHC RDW Plt Count Lymph % (Auto) [place] % (Auto) Eos % (Auto) Baso % (Auto) Lymph # [place] # Eos # Baso # Seg Neutrophils % Seg Neuts % (Manual) Lymphocytes % (Manual) Eosinophils % (Manual) Seg Neutrophils # Lymphocytes # (Manual) Eosinophils # (Manual) PT INR D-Dimer POC ABG pH POC ABG pCO2 POC ABG pO2 ABG pO2 ABG HCO3 ABG Base Excess ABG Hemoglobin Oxyhemoglobin Sodium Potassium Chloride Carbon Dioxide BUN Creatinine Glucose POC Glucose 134 H 128 H 142 H Calcium Phosphorus Magnesium ALT Alkaline Phosphatase Total Creatine Kinase CK-MB (CK-2) Rel Index Troponin T Albumin LDL Cholesterol Direct PTH Intact Salicylates Acetaminophen Crossmatch 02/28/19 03/01/19 03/01/19 23:13 05:40 09:39 WBC RBC Hgb Hct MCV MCH MCHC RDW Plt Count Lymph % (Auto) [place] % (Auto) Eos % (Auto) Baso % (Auto) Lymph # [place] # Eos # Baso # Seg Neutrophils % Seg Neuts % (Manual) Lymphocytes % (Manual) Eosinophils % (Manual) Seg Neutrophils # Lymphocytes # (Manual) Eosinophils # (Manual) PT 16.3 H INR 1.35 H D-Dimer POC ABG pH POC ABG pCO2 POC ABG pO2 ABG pO2 ABG HCO3 ABG Base Excess ABG Hemoglobin Oxyhemoglobin Sodium Potassium Chloride Carbon Dioxide BUN Creatinine Glucose POC Glucose 112 H 111 H Calcium Phosphorus Magnesium ALT Alkaline Phosphatase Total Creatine Kinase CK-MB (CK-2) Rel Index Troponin T Albumin LDL Cholesterol Direct PTH Intact Salicylates Acetaminophen Crossmatch 03/01/19 03/01/19 03/01/19 11:56 13:54 17:59 WBC RBC Hgb Hct MCV MCH MCHC RDW Plt Count Lymph % (Auto) [place] % (Auto) Eos % (Auto) Baso % (Auto) Lymph # [place] # Eos # Baso # Seg Neutrophils % Seg Neuts % (Manual) Lymphocytes % (Manual) Eosinophils % (Manual) Seg Neutrophils # Lymphocytes # (Manual) Eosinophils # (Manual) PT INR D-Dimer POC ABG pH POC ABG pCO2 POC ABG pO2 ABG pO2 ABG HCO3 ABG Base Excess ABG Hemoglobin Oxyhemoglobin Sodium Potassium Chloride Carbon Dioxide BUN 33 H Creatinine 2.8 H D Glucose 176 H POC Glucose 199 H 147 H Calcium Phosphorus Magnesium ALT Alkaline Phosphatase Total Creatine Kinase CK-MB (CK-2) Rel Index Troponin T Albumin LDL Cholesterol Direct PTH Intact Salicylates Acetaminophen Crossmatch 03/02/19 03/02/19 03/02/19 05:15 05:15 05:15 WBC RBC 2.73 L Hgb 7.4 L Hct 23.0 L MCV MCH 27 L MCHC RDW 19.9 H Plt Count Lymph % (Auto) [place] % (Auto) 7.9 H Eos % (Auto) 7.6 H Baso % (Auto) Lymph # 1.0 L [place] # Eos # 0.5 H Baso # Seg Neutrophils % Seg Neuts % (Manual) Lymphocytes % (Manual) Eosinophils % (Manual) Seg Neutrophils # Lymphocytes # (Manual) Eosinophils # (Manual) PT INR D-Dimer POC ABG pH POC ABG pCO2 POC ABG pO2 ABG pO2 ABG HCO3 ABG Base Excess ABG Hemoglobin Oxyhemoglobin Sodium Potassium Chloride Carbon Dioxide BUN 43 H Creatinine 3.2 H Glucose POC Glucose Calcium Phosphorus 2.30 L Magnesium ALT Alkaline Phosphatase Total Creatine Kinase CK-MB (CK-2) Rel Index Troponin T Albumin LDL Cholesterol Direct PTH Intact 267.6 H Salicylates Acetaminophen Crossmatch 03/02/19 03/02/19 03/03/19 12:32 18:20 13:30 WBC RBC Hgb Hct MCV MCH MCHC RDW Plt Count Lymph % (Auto) [place] % (Auto) Eos % (Auto) Baso % (Auto) Lymph # [place] # Eos # Baso # Seg Neutrophils % Seg Neuts % (Manual) Lymphocytes % (Manual) Eosinophils % (Manual) Seg Neutrophils # Lymphocytes # (Manual) Eosinophils # (Manual) PT INR D-Dimer POC ABG pH POC ABG pCO2 POC ABG pO2 ABG pO2 ABG HCO3 ABG Base Excess ABG Hemoglobin Oxyhemoglobin Sodium Potassium Chloride 97.3 L Carbon Dioxide BUN 26 H Creatinine 2.2 H Glucose 73 L POC Glucose 111 H 156 H Calcium Phosphorus Magnesium ALT Alkaline Phosphatase Total Creatine Kinase CK-MB (CK-2) Rel Index Troponin T Albumin LDL Cholesterol Direct PTH Intact Salicylates Acetaminophen Crossmatch 03/04/19 03/04/19 03/04/19 00:02 05:37 05:40 WBC RBC 2.63 L Hgb 7.2 L Hct 22.2 L MCV MCH MCHC RDW 20.2 H Plt Count Lymph % (Auto) 10.5 L [place] % (Auto) Eos % (Auto) 4.6 H Baso % (Auto) Lymph # 0.7 L [place] # Eos # Baso # Seg Neutrophils % 76.9 H Seg Neuts % (Manual) Lymphocytes % (Manual) Eosinophils % (Manual) Seg Neutrophils # Lymphocytes # (Manual) Eosinophils # (Manual) PT INR D-Dimer POC ABG pH POC ABG pCO2 POC ABG pO2 ABG pO2 ABG HCO3 ABG Base Excess ABG Hemoglobin Oxyhemoglobin Sodium Potassium Chloride Carbon Dioxide BUN Creatinine Glucose POC Glucose 136 H 123 H Calcium Phosphorus Magnesium ALT Alkaline Phosphatase Total Creatine Kinase CK-MB (CK-2) Rel Index Troponin T Albumin LDL Cholesterol Direct PTH Intact Salicylates Acetaminophen Crossmatch 03/04/19 03/04/19 03/04/19 05:40 11:39 23:20 WBC RBC Hgb Hct MCV MCH MCHC RDW Plt Count Lymph % (Auto) [place] % (Auto) Eos % (Auto) Baso % (Auto) Lymph # [place] # Eos # Baso # Seg Neutrophils % Seg Neuts % (Manual) Lymphocytes % (Manual) Eosinophils % (Manual) Seg Neutrophils # Lymphocytes # (Manual) Eosinophils # (Manual) PT INR D-Dimer POC ABG pH POC ABG pCO2 POC ABG pO2 ABG pO2 ABG HCO3 ABG Base Excess ABG Hemoglobin Oxyhemoglobin Sodium Potassium Chloride Carbon Dioxide BUN 34 H Creatinine 2.7 H Glucose 114 H POC Glucose 175 H 151 H Calcium Phosphorus Magnesium ALT Alkaline Phosphatase Total Creatine Kinase CK-MB (CK-2) Rel Index Troponin T Albumin LDL Cholesterol Direct PTH Intact Salicylates Acetaminophen Crossmatch 03/05/19 03/05/19 03/05/19 05:37 12:08 17:11 WBC RBC Hgb Hct MCV MCH MCHC RDW Plt Count Lymph % (Auto) [place] % (Auto) Eos % (Auto) Baso % (Auto) Lymph # [place] # Eos # Baso # Seg Neutrophils % Seg Neuts % (Manual) Lymphocytes % (Manual) Eosinophils % (Manual) Seg Neutrophils # Lymphocytes # (Manual) Eosinophils # (Manual) PT INR D-Dimer POC ABG pH POC ABG pCO2 POC ABG pO2 ABG pO2 ABG HCO3 ABG Base Excess ABG Hemoglobin Oxyhemoglobin Sodium Potassium Chloride Carbon Dioxide BUN Creatinine Glucose POC Glucose 134 H 135 H 135 H Calcium Phosphorus Magnesium ALT Alkaline Phosphatase Total Creatine Kinase CK-MB (CK-2) Rel Index Troponin T Albumin LDL Cholesterol Direct PTH Intact Salicylates Acetaminophen Crossmatch 03/06/19 03/06/19 03/06/19 00:16 13:05 18:09 WBC RBC Hgb Hct MCV MCH MCHC RDW Plt Count Lymph % (Auto) [place] % (Auto) Eos % (Auto) Baso % (Auto) Lymph # [place] # Eos # Baso # Seg Neutrophils % Seg Neuts % (Manual) Lymphocytes % (Manual) Eosinophils % (Manual) Seg Neutrophils # Lymphocytes # (Manual) Eosinophils # (Manual) PT INR D-Dimer POC ABG pH POC ABG pCO2 POC ABG pO2 ABG pO2 ABG HCO3 ABG Base Excess ABG Hemoglobin Oxyhemoglobin Sodium Potassium Chloride Carbon Dioxide BUN Creatinine Glucose POC Glucose 117 H 113 H 131 H Calcium Phosphorus Magnesium ALT Alkaline Phosphatase Total Creatine Kinase CK-MB (CK-2) Rel Index Troponin T Albumin LDL Cholesterol Direct PTH Intact Salicylates Acetaminophen Crossmatch 03/07/19 03/08/19 03/08/19 05:25 05:33 16:00 WBC RBC 2.44 L Hgb 6.6 L Hct 20.8 L MCV MCH 27 L MCHC RDW 19.2 H Plt Count Lymph % (Auto) [place] % (Auto) Eos % (Auto) 8.6 H Baso % (Auto) Lymph # 0.8 L [place] # Eos # 0.5 H Baso # Seg Neutrophils % 70.7 H Seg Neuts % (Manual) Lymphocytes % (Manual) Eosinophils % (Manual) Seg Neutrophils # Lymphocytes # (Manual) Eosinophils # (Manual) PT INR D-Dimer POC ABG pH POC ABG pCO2 POC ABG pO2 ABG pO2 ABG HCO3 ABG Base Excess ABG Hemoglobin Oxyhemoglobin Sodium Potassium Chloride Carbon Dioxide BUN Creatinine Glucose POC Glucose 106 H 108 H Calcium Phosphorus Magnesium ALT Alkaline Phosphatase Total Creatine Kinase CK-MB (CK-2) Rel Index Troponin T Albumin LDL Cholesterol Direct PTH Intact Salicylates Acetaminophen Crossmatch 03/08/19 03/08/19 03/08/19 16:00 18:38 Unknown WBC RBC Hgb Hct MCV MCH MCHC RDW Plt Count Lymph % (Auto) [place] % (Auto) Eos % (Auto) Baso % (Auto) Lymph # [place] # Eos # Baso # Seg Neutrophils % Seg Neuts % (Manual) Lymphocytes % (Manual) Eosinophils % (Manual) Seg Neutrophils # Lymphocytes # (Manual) Eosinophils # (Manual) PT INR D-Dimer POC ABG pH POC ABG pCO2 POC ABG pO2 ABG pO2 ABG HCO3 ABG Base Excess ABG Hemoglobin Oxyhemoglobin Sodium Potassium 5.4 H D Chloride Carbon Dioxide BUN 47 H Creatinine 2.6 H Glucose POC Glucose 123 H Calcium Phosphorus Magnesium ALT < 5 L Alkaline Phosphatase Total Creatine Kinase CK-MB (CK-2) Rel Index Troponin T Albumin 2.2 L LDL Cholesterol Direct PTH Intact Salicylates Acetaminophen Crossmatch See Detail 03/09/19 03/09/19 03/09/19 10:48 12:28 13:53 WBC RBC 2.85 L Hgb 7.7 L Hct 24.2 L MCV MCH 27 L MCHC RDW 18.7 H Plt Count Lymph % (Auto) [place] % (Auto) Eos % (Auto) Baso % (Auto) Lymph # [place] # Eos # Baso # Seg Neutrophils % Seg Neuts % (Manual) Lymphocytes % (Manual) Eosinophils % (Manual) Seg Neutrophils # Lymphocytes # (Manual) Eosinophils # (Manual) PT INR D-Dimer POC ABG pH POC ABG pCO2 POC ABG pO2 ABG pO2 ABG HCO3 30.5 H ABG Base Excess 5.6 H ABG Hemoglobin 8.1 L Oxyhemoglobin 93.8 L Sodium Potassium Chloride Carbon Dioxide BUN Creatinine Glucose POC Glucose 114 H Calcium Phosphorus Magnesium ALT Alkaline Phosphatase Total Creatine Kinase CK-MB (CK-2) Rel Index Troponin T Albumin LDL Cholesterol Direct PTH Intact Salicylates Acetaminophen Crossmatch 03/09/19 03/09/19 03/10/19 17:58 23:53 12:01 WBC RBC Hgb Hct MCV MCH MCHC RDW Plt Count Lymph % (Auto) [place] % (Auto) Eos % (Auto) Baso % (Auto) Lymph # [place] # Eos # Baso # Seg Neutrophils % Seg Neuts % (Manual) Lymphocytes % (Manual) Eosinophils % (Manual) Seg Neutrophils # Lymphocytes # (Manual) Eosinophils # (Manual) PT INR D-Dimer POC ABG pH POC ABG pCO2 POC ABG pO2 ABG pO2 ABG HCO3 ABG Base Excess ABG Hemoglobin Oxyhemoglobin Sodium Potassium Chloride Carbon Dioxide BUN Creatinine Glucose POC Glucose 108 H 128 H 144 H Calcium Phosphorus Magnesium ALT Alkaline Phosphatase Total Creatine Kinase CK-MB (CK-2) Rel Index Troponin T Albumin LDL Cholesterol Direct PTH Intact Salicylates Acetaminophen Crossmatch 03/10/19 03/11/19 03/11/19 16:50 00:24 05:02 WBC RBC Hgb Hct MCV MCH MCHC RDW Plt Count Lymph % (Auto) [place] % (Auto) Eos % (Auto) Baso % (Auto) Lymph # [place] # Eos # Baso # Seg Neutrophils % Seg Neuts % (Manual) Lymphocytes % (Manual) Eosinophils % (Manual) Seg Neutrophils # Lymphocytes # (Manual) Eosinophils # (Manual) PT INR D-Dimer POC ABG pH POC ABG pCO2 POC ABG pO2 ABG pO2 ABG HCO3 ABG Base Excess ABG Hemoglobin Oxyhemoglobin Sodium Potassium Chloride Carbon Dioxide BUN Creatinine Glucose POC Glucose 147 H 123 H 120 H Calcium Phosphorus Magnesium ALT Alkaline Phosphatase Total Creatine Kinase CK-MB (CK-2) Rel Index Troponin T Albumin LDL Cholesterol Direct PTH Intact Salicylates Acetaminophen Crossmatch 03/11/19 03/11/19 03/11/19 11:56 12:20 18:37 WBC RBC Hgb Hct MCV MCH MCHC RDW Plt Count Lymph % (Auto) [place] % (Auto) Eos % (Auto) Baso % (Auto) Lymph # [place] # Eos # Baso # Seg Neutrophils % Seg Neuts % (Manual) Lymphocytes % (Manual) Eosinophils % (Manual) Seg Neutrophils # Lymphocytes # (Manual) Eosinophils # (Manual) PT INR D-Dimer POC ABG pH POC ABG pCO2 POC ABG pO2 ABG pO2 ABG HCO3 ABG Base Excess ABG Hemoglobin Oxyhemoglobin Sodium Potassium 5.2 H Chloride Carbon Dioxide BUN Creatinine Glucose POC Glucose 123 H 125 H Calcium Phosphorus Magnesium ALT Alkaline Phosphatase Total Creatine Kinase CK-MB (CK-2) Rel Index Troponin T Albumin LDL Cholesterol Direct PTH Intact Salicylates Acetaminophen Crossmatch 03/11/19 03/12/19 03/12/19 22:52 12:04 18:25 WBC RBC Hgb Hct MCV MCH MCHC RDW Plt Count Lymph % (Auto) [place] % (Auto) Eos % (Auto) Baso % (Auto) Lymph # [place] # Eos # Baso # Seg Neutrophils % Seg Neuts % (Manual) Lymphocytes % (Manual) Eosinophils % (Manual) Seg Neutrophils # Lymphocytes # (Manual) Eosinophils # (Manual) PT INR D-Dimer POC ABG pH POC ABG pCO2 POC ABG pO2 ABG pO2 ABG HCO3 ABG Base Excess ABG Hemoglobin Oxyhemoglobin Sodium Potassium Chloride Carbon Dioxide BUN Creatinine Glucose POC Glucose 110 H 106 H 118 H Calcium Phosphorus Magnesium ALT Alkaline Phosphatase Total Creatine Kinase CK-MB (CK-2) Rel Index Troponin T Albumin LDL Cholesterol Direct PTH Intact Salicylates Acetaminophen Crossmatch 03/12/19 03/13/19 03/13/19 23:36 04:38 04:38 WBC RBC 2.95 L Hgb 7.9 L Hct 24.9 L MCV MCH 27 L MCHC RDW 19.9 H Plt Count Lymph % (Auto) 11.1 L [place] % (Auto) 8.1 H Eos % (Auto) 4.4 H Baso % (Auto) Lymph # 0.9 L [place] # Eos # Baso # Seg Neutrophils % 75.4 H Seg Neuts % (Manual) Lymphocytes % (Manual) Eosinophils % (Manual) Seg Neutrophils # Lymphocytes # (Manual) Eosinophils # (Manual) PT INR D-Dimer POC ABG pH POC ABG pCO2 POC ABG pO2 ABG pO2 ABG HCO3 ABG Base Excess ABG Hemoglobin Oxyhemoglobin Sodium 136 L Potassium 5.1 H Chloride 93.8 L Carbon Dioxide BUN 48 H Creatinine 2.7 H Glucose 102 H POC Glucose 115 H Calcium Phosphorus Magnesium ALT < 5 L Alkaline Phosphatase 143 H Total Creatine Kinase CK-MB (CK-2) Rel Index Troponin T Albumin 2.5 L LDL Cholesterol Direct PTH Intact Salicylates Acetaminophen Crossmatch 03/13/19 03/13/19 03/13/19 05:33 13:37 18:03 WBC RBC Hgb Hct MCV MCH MCHC RDW Plt Count Lymph % (Auto) [place] % (Auto) Eos % (Auto) Baso % (Auto) Lymph # [place] # Eos # Baso # Seg Neutrophils % Seg Neuts % (Manual) Lymphocytes % (Manual) Eosinophils % (Manual) Seg Neutrophils # Lymphocytes # (Manual) Eosinophils # (Manual) PT INR D-Dimer POC ABG pH POC ABG pCO2 POC ABG pO2 ABG pO2 ABG HCO3 ABG Base Excess ABG Hemoglobin Oxyhemoglobin Sodium Potassium Chloride Carbon Dioxide BUN Creatinine Glucose POC Glucose 140 H 150 H 158 H Calcium Phosphorus Magnesium ALT Alkaline Phosphatase Total Creatine Kinase CK-MB (CK-2) Rel Index Troponin T Albumin LDL Cholesterol Direct PTH Intact Salicylates Acetaminophen Crossmatch 03/13/19 03/14/19 03/14/19 23:32 05:24 12:20 WBC RBC Hgb Hct MCV MCH MCHC RDW Plt Count Lymph % (Auto) [place] % (Auto) Eos % (Auto) Baso % (Auto) Lymph # [place] # Eos # Baso # Seg Neutrophils % Seg Neuts % (Manual) Lymphocytes % (Manual) Eosinophils % (Manual) Seg Neutrophils # Lymphocytes # (Manual) Eosinophils # (Manual) PT INR D-Dimer POC ABG pH POC ABG pCO2 POC ABG pO2 ABG pO2 ABG HCO3 ABG Base Excess ABG Hemoglobin Oxyhemoglobin Sodium Potassium Chloride Carbon Dioxide BUN Creatinine Glucose POC Glucose 162 H 146 H 127 H Calcium Phosphorus Magnesium ALT Alkaline Phosphatase Total Creatine Kinase CK-MB (CK-2) Rel Index Troponin T Albumin LDL Cholesterol Direct PTH Intact Salicylates Acetaminophen Crossmatch 03/14/19 03/14/19 03/15/19 18:05 23:57 04:38 WBC 12.8 H RBC 3.11 L Hgb 8.1 L Hct 26.5 L MCV MCH 26 L MCHC 31 L RDW 19.7 H Plt Count Lymph % (Auto) 4.4 L [place] % (Auto) 7.4 H Eos % (Auto) Baso % (Auto) Lymph # 0.6 L [place] # 0.9 H Eos # Baso # Seg Neutrophils % 87.3 H Seg Neuts % (Manual) Lymphocytes % (Manual) Eosinophils % (Manual) Seg Neutrophils # 11.2 H Lymphocytes # (Manual) Eosinophils # (Manual) PT INR D-Dimer POC ABG pH POC ABG pCO2 POC ABG pO2 ABG pO2 ABG HCO3 ABG Base Excess ABG Hemoglobin Oxyhemoglobin Sodium Potassium Chloride Carbon Dioxide BUN Creatinine Glucose POC Glucose 142 H 155 H Calcium Phosphorus Magnesium ALT Alkaline Phosphatase Total Creatine Kinase CK-MB (CK-2) Rel Index Troponin T Albumin LDL Cholesterol Direct PTH Intact Salicylates Acetaminophen Crossmatch 03/15/19 03/15/19 03/15/19 04:38 05:31 11:32 WBC RBC Hgb Hct MCV MCH MCHC RDW Plt Count Lymph % (Auto) [place] % (Auto) Eos % (Auto) Baso % (Auto) Lymph # [place] # Eos # Baso # Seg Neutrophils % Seg Neuts % (Manual) Lymphocytes % (Manual) Eosinophils % (Manual) Seg Neutrophils # Lymphocytes # (Manual) Eosinophils # (Manual) PT INR D-Dimer POC ABG pH POC ABG pCO2 POC ABG pO2 ABG pO2 ABG HCO3 ABG Base Excess ABG Hemoglobin Oxyhemoglobin Sodium 135 L Potassium Chloride 91.9 L Carbon Dioxide BUN 54 H Creatinine 2.8 H Glucose 128 H POC Glucose 160 H 109 H Calcium 11.1 H Phosphorus Magnesium ALT Alkaline Phosphatase 161 H Total Creatine Kinase CK-MB (CK-2) Rel Index Troponin T Albumin 2.3 L LDL Cholesterol Direct PTH Intact Salicylates Acetaminophen Crossmatch 03/15/19 03/15/19 03/16/19 18:15 23:41 05:40 WBC RBC Hgb Hct MCV MCH MCHC RDW Plt Count Lymph % (Auto) [place] % (Auto) Eos % (Auto) Baso % (Auto) Lymph # [place] # Eos # Baso # Seg Neutrophils % Seg Neuts % (Manual) Lymphocytes % (Manual) Eosinophils % (Manual) Seg Neutrophils # Lymphocytes # (Manual) Eosinophils # (Manual) PT INR D-Dimer POC ABG pH POC ABG pCO2 POC ABG pO2 ABG pO2 ABG HCO3 ABG Base Excess ABG Hemoglobin Oxyhemoglobin Sodium Potassium Chloride Carbon Dioxide BUN Creatinine Glucose POC Glucose 151 H 110 H 163 H Calcium Phosphorus Magnesium ALT Alkaline Phosphatase Total Creatine Kinase CK-MB (CK-2) Rel Index Troponin T Albumin LDL Cholesterol Direct PTH Intact Salicylates Acetaminophen Crossmatch 03/16/19 03/16/19 03/16/19 11:55 17:04 23:58 WBC RBC Hgb Hct MCV MCH MCHC RDW Plt Count Lymph % (Auto) [place] % (Auto) Eos % (Auto) Baso % (Auto) Lymph # [place] # Eos # Baso # Seg Neutrophils % Seg Neuts % (Manual) Lymphocytes % (Manual) Eosinophils % (Manual) Seg Neutrophils # Lymphocytes # (Manual) Eosinophils # (Manual) PT INR D-Dimer POC ABG pH POC ABG pCO2 POC ABG pO2 ABG pO2 ABG HCO3 ABG Base Excess ABG Hemoglobin Oxyhemoglobin Sodium Potassium Chloride Carbon Dioxide BUN Creatinine Glucose POC Glucose 114 H 147 H 192 H Calcium Phosphorus Magnesium ALT Alkaline Phosphatase Total Creatine Kinase CK-MB (CK-2) Rel Index Troponin T Albumin LDL Cholesterol Direct PTH Intact Salicylates Acetaminophen Crossmatch 03/17/19 03/17/19 03/17/19 05:53 11:17 17:01 WBC RBC Hgb Hct MCV MCH MCHC RDW Plt Count Lymph % (Auto) [place] % (Auto) Eos % (Auto) Baso % (Auto) Lymph # [place] # Eos # Baso # Seg Neutrophils % Seg Neuts % (Manual) Lymphocytes % (Manual) Eosinophils % (Manual) Seg Neutrophils # Lymphocytes # (Manual) Eosinophils # (Manual) PT INR D-Dimer POC ABG pH POC ABG pCO2 POC ABG pO2 ABG pO2 ABG HCO3 ABG Base Excess ABG Hemoglobin Oxyhemoglobin Sodium Potassium Chloride Carbon Dioxide BUN Creatinine Glucose POC Glucose 151 H 161 H 152 H Calcium Phosphorus Magnesium ALT Alkaline Phosphatase Total Creatine Kinase CK-MB (CK-2) Rel Index Troponin T Albumin LDL Cholesterol Direct PTH Intact Salicylates Acetaminophen Crossmatch 03/17/19 03/18/19 03/18/19 21:47 04:15 04:44 WBC RBC Hgb Hct MCV MCH MCHC RDW Plt Count Lymph % (Auto) [place] % (Auto) Eos % (Auto) Baso % (Auto) Lymph # [place] # Eos # Baso # Seg Neutrophils % Seg Neuts % (Manual) Lymphocytes % (Manual) Eosinophils % (Manual) Seg Neutrophils # Lymphocytes # (Manual) Eosinophils # (Manual) PT INR D-Dimer POC ABG pH POC ABG pCO2 POC ABG pO2 ABG pO2 102.8 H ABG HCO3 28.3 H ABG Base Excess ABG Hemoglobin 10.4 L Oxyhemoglobin 94.5 L Sodium Potassium Chloride Carbon Dioxide BUN Creatinine Glucose POC Glucose 170 H 150 H Calcium Phosphorus Magnesium ALT Alkaline Phosphatase Total Creatine Kinase CK-MB (CK-2) Rel Index Troponin T Albumin LDL Cholesterol Direct PTH Intact Salicylates Acetaminophen Crossmatch 03/18/19 03/18/1919 06:38 12:12 17:47 WBC RBC Hgb Hct MCV MCH MCHC RDW Plt Count Lymph % (Auto) [place] % (Auto) Eos % (Auto) Baso % (Auto) Lymph # [place] # Eos # Baso # Seg Neutrophils % Seg Neuts % (Manual) Lymphocytes % (Manual) Eosinophils % (Manual) Seg Neutrophils # Lymphocytes # (Manual) Eosinophils # (Manual) PT INR D-Dimer POC ABG pH 7.510 H POC ABG pCO2 POC ABG pO2 164 H ABG pO2 ABG HCO3 ABG Base Excess ABG Hemoglobin Oxyhemoglobin Sodium Potassium Chloride Carbon Dioxide BUN Creatinine Glucose POC Glucose 145 H 149 H Calcium Phosphorus Magnesium ALT Alkaline Phosphatase Total Creatine Kinase CK-MB (CK-2) Rel Index Troponin T Albumin LDL Cholesterol Direct PTH Intact Salicylates Acetaminophen Crossmatch 03/18/19 03/19/19 03/19/19 23:25 01:11 04:23 WBC 15.6 H RBC 2.51 L Hgb 6.5 L Hct 21.6 L MCV MCH 26 L MCHC 30 L RDW 19.8 H Plt Count Lymph % (Auto) 6.0 L [place] % (Auto) Eos % (Auto) Baso % (Auto) Lymph # 0.9 L [place] # 1.0 H Eos # Baso # Seg Neutrophils % 85.5 H Seg Neuts % (Manual) Lymphocytes % (Manual) Eosinophils % (Manual) Seg Neutrophils # 13.4 H Lymphocytes # (Manual) Eosinophils # (Manual) PT INR D-Dimer POC ABG pH POC ABG pCO2 POC ABG pO2 ABG pO2 78.3 L ABG HCO3 30.7 H ABG Base Excess 5.8 H ABG Hemoglobin 5.8 L Oxyhemoglobin 94.6 L Sodium Potassium Chloride Carbon Dioxide BUN Creatinine Glucose POC Glucose 190 H Calcium Phosphorus Magnesium ALT Alkaline Phosphatase Total Creatine Kinase CK-MB (CK-2) Rel Index Troponin T Albumin LDL Cholesterol Direct PTH Intact Salicylates Acetaminophen Crossmatch 03/19/19 03/19/19 03/19/19 05:22 05:35 08:54 WBC RBC Hgb Hct MCV MCH MCHC RDW Plt Count Lymph % (Auto) [place] % (Auto) Eos % (Auto) Baso % (Auto) Lymph # [place] # Eos # Baso # Seg Neutrophils % Seg Neuts % (Manual) Lymphocytes % (Manual) Eosinophils % (Manual) Seg Neutrophils # Lymphocytes # (Manual) Eosinophils # (Manual) PT INR D-Dimer POC ABG pH POC ABG pCO2 POC ABG pO2 ABG pO2 ABG HCO3 ABG Base Excess ABG Hemoglobin Oxyhemoglobin Sodium Potassium Chloride Carbon Dioxide BUN Creatinine Glucose POC Glucose 167 H Calcium Phosphorus Magnesium ALT Alkaline Phosphatase Total Creatine Kinase CK-MB (CK-2) Rel Index Troponin T Albumin LDL Cholesterol Direct PTH Intact Salicylates Acetaminophen Crossmatch See Detail See Detail 03/19/19 03/19/19 03/19/19 12:36 17:02 23:25 WBC RBC Hgb Hct MCV MCH MCHC RDW Plt Count Lymph % (Auto) [place] % (Auto) Eos % (Auto) Baso % (Auto) Lymph # [place] # Eos # Baso # Seg Neutrophils % Seg Neuts % (Manual) Lymphocytes % (Manual) Eosinophils % (Manual) Seg Neutrophils # Lymphocytes # (Manual) Eosinophils # (Manual) PT INR D-Dimer POC ABG pH POC ABG pCO2 POC ABG pO2 ABG pO2 ABG HCO3 ABG Base Excess ABG Hemoglobin Oxyhemoglobin Sodium Potassium Chloride Carbon Dioxide BUN Creatinine Glucose POC Glucose 167 H 135 H 136 H Calcium Phosphorus Magnesium ALT Alkaline Phosphatase Total Creatine Kinase CK-MB (CK-2) Rel Index Troponin T Albumin LDL Cholesterol Direct PTH Intact Salicylates Acetaminophen Crossmatch 03/20/19 03/20/19 03/20/19 05:38 08:40 08:40 WBC RBC 2.61 L Hgb 7.1 L Hct 22.0 L MCV MCH 27 L MCHC RDW 19.6 H Plt Count Lymph % (Auto) 8.2 L [place] % (Auto) 8.3 H Eos % (Auto) 5.7 H Baso % (Auto) Lymph # 0.8 L [place] # Eos # 0.5 H Baso # Seg Neutrophils % 77.3 H Seg Neuts % (Manual) Lymphocytes % (Manual) Eosinophils % (Manual) Seg Neutrophils # Lymphocytes # (Manual) Eosinophils # (Manual) PT INR D-Dimer POC ABG pH POC ABG pCO2 POC ABG pO2 ABG pO2 ABG HCO3 ABG Base Excess ABG Hemoglobin Oxyhemoglobin Sodium Potassium Chloride 95.9 L Carbon Dioxide BUN 69 H Creatinine 2.8 H Glucose 115 H POC Glucose 134 H Calcium 10.5 H Phosphorus Magnesium ALT Alkaline Phosphatase Total Creatine Kinase CK-MB (CK-2) Rel Index Troponin T Albumin LDL Cholesterol Direct PTH Intact Salicylates Acetaminophen Crossmatch 03/20/19 03/20/19 03/20/19 12:13 18:04 23:49 WBC RBC Hgb Hct MCV MCH MCHC RDW Plt Count Lymph % (Auto) [place] % (Auto) Eos % (Auto) Baso % (Auto) Lymph # [place] # Eos # Baso # Seg Neutrophils % Seg Neuts % (Manual) Lymphocytes % (Manual) Eosinophils % (Manual) Seg Neutrophils # Lymphocytes # (Manual) Eosinophils # (Manual) PT INR D-Dimer POC ABG pH POC ABG pCO2 POC ABG pO2 ABG pO2 ABG HCO3 ABG Base Excess ABG Hemoglobin Oxyhemoglobin Sodium Potassium Chloride Carbon Dioxide BUN Creatinine Glucose POC Glucose 144 H 165 H 172 H Calcium Phosphorus Magnesium ALT Alkaline Phosphatase Total Creatine Kinase CK-MB (CK-2) Rel Index Troponin T Albumin LDL Cholesterol Direct PTH Intact Salicylates Acetaminophen Crossmatch 03/21/19 03/21/19 03/21/19 05:00 06:29 06:30 WBC RBC 2.72 L Hgb 7.4 L Hct 22.9 L MCV MCH 27 L MCHC RDW 19.4 H Plt Count Lymph % (Auto) [place] % (Auto) Eos % (Auto) Baso % (Auto) Lymph # [place] # Eos # Baso # Seg Neutrophils % Seg Neuts % (Manual) 81.0 H Lymphocytes % (Manual) 8.0 L Eosinophils % (Manual) 8.0 H Seg Neutrophils # Lymphocytes # (Manual) 0.7 L Eosinophils # (Manual) 0.7 H PT INR D-Dimer POC ABG pH POC ABG pCO2 POC ABG pO2 ABG pO2 ABG HCO3 ABG Base Excess ABG Hemoglobin Oxyhemoglobin Sodium Potassium Chloride Carbon Dioxide 33 H BUN 43 H Creatinine 1.7 H Glucose 145 H POC Glucose 156 H Calcium Phosphorus Magnesium ALT Alkaline Phosphatase 212 H Total Creatine Kinase CK-MB (CK-2) Rel Index Troponin T Albumin 2.2 L LDL Cholesterol Direct PTH Intact Salicylates Acetaminophen Crossmatch 03/21/19 03/21/19 03/22/19 12:02 18:07 00:21 WBC RBC Hgb Hct MCV MCH MCHC RDW Plt Count Lymph % (Auto) [place] % (Auto) Eos % (Auto) Baso % (Auto) Lymph # [place] # Eos # Baso # Seg Neutrophils % Seg Neuts % (Manual) Lymphocytes % (Manual) Eosinophils % (Manual) Seg Neutrophils # Lymphocytes # (Manual) Eosinophils # (Manual) PT INR D-Dimer POC ABG pH POC ABG pCO2 POC ABG pO2 ABG pO2 ABG HCO3 ABG Base Excess ABG Hemoglobin Oxyhemoglobin Sodium Potassium Chloride Carbon Dioxide BUN Creatinine Glucose POC Glucose 163 H 144 H 153 H Calcium Phosphorus Magnesium ALT Alkaline Phosphatase Total Creatine Kinase CK-MB (CK-2) Rel Index Troponin T Albumin LDL Cholesterol Direct PTH Intact Salicylates Acetaminophen Crossmatch 03/22/19 03/22/19 03/22/19 05:23 05:23 05:31 WBC RBC 2.58 L Hgb 7.1 L Hct 21.8 L MCV MCH 27 L MCHC RDW 19.2 H Plt Count Lymph % (Auto) [place] % (Auto) Eos % (Auto) Baso % (Auto) Lymph # [place] # Eos # Baso # Seg Neutrophils % Seg Neuts % (Manual) Lymphocytes % (Manual) Eosinophils % (Manual) Seg Neutrophils # Lymphocytes # (Manual) Eosinophils # (Manual) PT INR D-Dimer POC ABG pH POC ABG pCO2 POC ABG pO2 ABG pO2 ABG HCO3 ABG Base Excess ABG Hemoglobin Oxyhemoglobin Sodium 147 H Potassium Chloride Carbon Dioxide BUN 68 H Creatinine 2.5 H Glucose POC Glucose 116 H Calcium 10.3 H Phosphorus Magnesium ALT Alkaline Phosphatase Total Creatine Kinase CK-MB (CK-2) Rel Index Troponin T Albumin LDL Cholesterol Direct PTH Intact Salicylates Acetaminophen Crossmatch 03/22/19 03/22/19 03/22/19 08:48 12:37 17:35 WBC RBC Hgb Hct MCV MCH MCHC RDW Plt Count Lymph % (Auto) [place] % (Auto) Eos % (Auto) Baso % (Auto) Lymph # [place] # Eos # Baso # Seg Neutrophils % Seg Neuts % (Manual) Lymphocytes % (Manual) Eosinophils % (Manual) Seg Neutrophils # Lymphocytes # (Manual) Eosinophils # (Manual) PT INR D-Dimer POC ABG pH POC ABG pCO2 POC ABG pO2 ABG pO2 ABG HCO3 ABG Base Excess ABG Hemoglobin Oxyhemoglobin Sodium Potassium Chloride Carbon Dioxide BUN Creatinine Glucose POC Glucose 143 H 155 H Calcium Phosphorus Magnesium ALT Alkaline Phosphatase Total Creatine Kinase CK-MB (CK-2) Rel Index Troponin T Albumin LDL Cholesterol Direct PTH Intact Salicylates Acetaminophen Crossmatch See Detail 03/23/19 03/23/19 03/23/19 00:07 04:00 04:00 WBC 11.2 H RBC 2.32 L Hgb 6.4 L Hct 19.7 L* MCV MCH MCHC RDW 19.4 H Plt Count Lymph % (Auto) [place] % (Auto) Eos % (Auto) Baso % (Auto) Lymph # [place] # Eos # Baso # Seg Neutrophils % Seg Neuts % (Manual) Lymphocytes % (Manual) Eosinophils % (Manual) Seg Neutrophils # Lymphocytes # (Manual) Eosinophils # (Manual) PT INR D-Dimer POC ABG pH POC ABG pCO2 POC ABG pO2 ABG pO2 ABG HCO3 ABG Base Excess ABG Hemoglobin Oxyhemoglobin Sodium 147 H Potassium 5.2 H Chloride Carbon Dioxide BUN 86 H Creatinine 3.2 H Glucose 128 H POC Glucose 135 H Calcium 10.3 H Phosphorus Magnesium ALT Alkaline Phosphatase Total Creatine Kinase CK-MB (CK-2) Rel Index Troponin T Albumin LDL Cholesterol Direct PTH Intact Salicylates Acetaminophen Crossmatch 03/23/19 03/23/19 03/23/19 05:21 11:36 11:36 WBC RBC Hgb 7.9 L Hct 25.0 L MCV MCH MCHC RDW Plt Count Lymph % (Auto) [place] % (Auto) Eos % (Auto) Baso % (Auto) Lymph # [place] # Eos # Baso # Seg Neutrophils % Seg Neuts % (Manual) Lymphocytes % (Manual) Eosinophils % (Manual) Seg Neutrophils # Lymphocytes # (Manual) Eosinophils # (Manual) PT INR D-Dimer POC ABG pH POC ABG pCO2 POC ABG pO2 ABG pO2 ABG HCO3 ABG Base Excess ABG Hemoglobin Oxyhemoglobin Sodium Potassium Chloride Carbon Dioxide BUN Creatinine Glucose POC Glucose 132 H 147 H Calcium Phosphorus Magnesium ALT Alkaline Phosphatase Total Creatine Kinase CK-MB (CK-2) Rel Index Troponin T Albumin LDL Cholesterol Direct PTH Intact Salicylates Acetaminophen Crossmatch 03/23/19 03/24/19 03/24/19 17:31 01:22 04:20 WBC 12.2 H RBC 3.05 L Hgb 8.3 L Hct 25.9 L MCV MCH 27 L MCHC RDW 18.7 H Plt Count Lymph % (Auto) [place] % (Auto) Eos % (Auto) Baso % (Auto) Lymph # [place] # Eos # Baso # Seg Neutrophils % Seg Neuts % (Manual) Lymphocytes % (Manual) Eosinophils % (Manual) Seg Neutrophils # Lymphocytes # (Manual) Eosinophils # (Manual) PT INR D-Dimer POC ABG pH POC ABG pCO2 POC ABG pO2 ABG pO2 ABG HCO3 ABG Base Excess ABG Hemoglobin Oxyhemoglobin Sodium Potassium Chloride Carbon Dioxide BUN Creatinine Glucose POC Glucose 182 H 113 H Calcium Phosphorus Magnesium ALT Alkaline Phosphatase Total Creatine Kinase CK-MB (CK-2) Rel Index Troponin T Albumin LDL Cholesterol Direct PTH Intact Salicylates Acetaminophen Crossmatch 03/24/19 03/24/19 03/24/19 04:20 11:59 18:14 WBC RBC Hgb Hct MCV MCH MCHC RDW Plt Count Lymph % (Auto) [place] % (Auto) Eos % (Auto) Baso % (Auto) Lymph # [place] # Eos # Baso # Seg Neutrophils % Seg Neuts % (Manual) Lymphocytes % (Manual) Eosinophils % (Manual) Seg Neutrophils # Lymphocytes # (Manual) Eosinophils # (Manual) PT INR D-Dimer POC ABG pH POC ABG pCO2 POC ABG pO2 ABG pO2 ABG HCO3 ABG Base Excess ABG Hemoglobin Oxyhemoglobin Sodium Potassium Chloride 94.8 L Carbon Dioxide 32 H BUN 53 H Creatinine 2.3 H Glucose POC Glucose 163 H 134 H Calcium Phosphorus Magnesium ALT Alkaline Phosphatase Total Creatine Kinase CK-MB (CK-2) Rel Index Troponin T Albumin LDL Cholesterol Direct PTH Intact Salicylates Acetaminophen Crossmatch 03/24/19 03/25/19 03/25/19 23:15 05:52 12:02 WBC RBC Hgb Hct MCV MCH MCHC RDW Plt Count Lymph % (Auto) [place] % (Auto) Eos % (Auto) Baso % (Auto) Lymph # [place] # Eos # Baso # Seg Neutrophils % Seg Neuts % (Manual) Lymphocytes % (Manual) Eosinophils % (Manual) Seg Neutrophils # Lymphocytes # (Manual) Eosinophils # (Manual) PT INR D-Dimer POC ABG pH POC ABG pCO2 POC ABG pO2 ABG pO2 ABG HCO3 ABG Base Excess ABG Hemoglobin Oxyhemoglobin Sodium Potassium Chloride Carbon Dioxide BUN Creatinine Glucose POC Glucose 129 H 123 H 125 H Calcium Phosphorus Magnesium ALT Alkaline Phosphatase Total Creatine Kinase CK-MB (CK-2) Rel Index Troponin T Albumin LDL Cholesterol Direct PTH Intact Salicylates Acetaminophen Crossmatch 03/25/19 03/26/19 03/26/19 17:27 00:30 05:35 WBC RBC 3.01 L Hgb 8.1 L Hct 25.7 L MCV MCH 27 L MCHC RDW 19.2 H Plt Count Lymph % (Auto) 11.4 L [place] % (Auto) Eos % (Auto) 8.0 H Baso % (Auto) Lymph # 1.0 L [place] # Eos # 0.7 H Baso # Seg Neutrophils % 73.9 H Seg Neuts % (Manual) Lymphocytes % (Manual) Eosinophils % (Manual) Seg Neutrophils # Lymphocytes # (Manual) Eosinophils # (Manual) PT INR D-Dimer POC ABG pH POC ABG pCO2 POC ABG pO2 ABG pO2 ABG HCO3 ABG Base Excess ABG Hemoglobin Oxyhemoglobin Sodium Potassium Chloride Carbon Dioxide BUN Creatinine Glucose POC Glucose 130 H 129 H Calcium Phosphorus Magnesium ALT Alkaline Phosphatase Total Creatine Kinase CK-MB (CK-2) Rel Index Troponin T Albumin LDL Cholesterol Direct PTH Intact Salicylates Acetaminophen Crossmatch 03/26/19 03/26/19 03/26/19 05:35 05:45 12:16 WBC RBC Hgb Hct MCV MCH MCHC RDW Plt Count Lymph % (Auto) [place] % (Auto) Eos % (Auto) Baso % (Auto) Lymph # [place] # Eos # Baso # Seg Neutrophils % Seg Neuts % (Manual) Lymphocytes % (Manual) Eosinophils % (Manual) Seg Neutrophils # Lymphocytes # (Manual) Eosinophils # (Manual) PT INR D-Dimer POC ABG pH POC ABG pCO2 POC ABG pO2 ABG pO2 ABG HCO3 ABG Base Excess ABG Hemoglobin Oxyhemoglobin Sodium Potassium Chloride 94.9 L Carbon Dioxide 31 H BUN 44 H Creatinine 2.0 H Glucose POC Glucose 118 H 107 H Calcium Phosphorus Magnesium ALT Alkaline Phosphatase Total Creatine Kinase CK-MB (CK-2) Rel Index Troponin T Albumin LDL Cholesterol Direct PTH Intact Salicylates Acetaminophen Crossmatch 03/26/19 03/27/19 03/27/19 17:56 00:36 05:37 WBC RBC Hgb Hct MCV MCH MCHC RDW Plt Count Lymph % (Auto) [place] % (Auto) Eos % (Auto) Baso % (Auto) Lymph # [place] # Eos # Baso # Seg Neutrophils % Seg Neuts % (Manual) Lymphocytes % (Manual) Eosinophils % (Manual) Seg Neutrophils # Lymphocytes # (Manual) Eosinophils # (Manual) PT INR D-Dimer POC ABG pH POC ABG pCO2 POC ABG pO2 ABG pO2 ABG HCO3 ABG Base Excess ABG Hemoglobin Oxyhemoglobin Sodium Potassium Chloride Carbon Dioxide BUN Creatinine Glucose POC Glucose 107 H 110 H 122 H Calcium Phosphorus Magnesium ALT Alkaline Phosphatase Total Creatine Kinase CK-MB (CK-2) Rel Index Troponin T Albumin LDL Cholesterol Direct PTH Intact Salicylates Acetaminophen Crossmatch 03/27/19 03/27/19 03/28/19 11:22 18:00 05:17 WBC RBC Hgb Hct MCV MCH MCHC RDW Plt Count Lymph % (Auto) [place] % (Auto) Eos % (Auto) Baso % (Auto) Lymph # [place] # Eos # Baso # Seg Neutrophils % Seg Neuts % (Manual) Lymphocytes % (Manual) Eosinophils % (Manual) Seg Neutrophils # Lymphocytes # (Manual) Eosinophils # (Manual) PT INR D-Dimer POC ABG pH POC ABG pCO2 POC ABG pO2 ABG pO2 ABG HCO3 ABG Base Excess ABG Hemoglobin Oxyhemoglobin Sodium Potassium Chloride Carbon Dioxide BUN Creatinine Glucose POC Glucose 120 H 111 H 107 H Calcium Phosphorus Magnesium ALT Alkaline Phosphatase Total Creatine Kinase CK-MB (CK-2) Rel Index Troponin T Albumin LDL Cholesterol Direct PTH Intact Salicylates Acetaminophen Crossmatch 03/28/19 03/28/19 03/29/19 12:27 18:08 05:47 WBC RBC Hgb Hct MCV MCH MCHC RDW Plt Count Lymph % (Auto) [place] % (Auto) Eos % (Auto) Baso % (Auto) Lymph # [place] # Eos # Baso # Seg Neutrophils % Seg Neuts % (Manual) Lymphocytes % (Manual) Eosinophils % (Manual) Seg Neutrophils # Lymphocytes # (Manual) Eosinophils # (Manual) PT INR D-Dimer POC ABG pH POC ABG pCO2 POC ABG pO2 ABG pO2 ABG HCO3 ABG Base Excess ABG Hemoglobin Oxyhemoglobin Sodium Potassium Chloride Carbon Dioxide BUN Creatinine Glucose POC Glucose 114 H 121 H 112 H Calcium Phosphorus Magnesium ALT Alkaline Phosphatase Total Creatine Kinase CK-MB (CK-2) Rel Index Troponin T Albumin LDL Cholesterol Direct PTH Intact Salicylates Acetaminophen Crossmatch 03/29/19 03/29/19 03/30/19 12:14 18:08 00:31 WBC RBC Hgb Hct MCV MCH MCHC RDW Plt Count Lymph % (Auto) [place] % (Auto) Eos % (Auto) Baso % (Auto) Lymph # [place] # Eos # Baso # Seg Neutrophils % Seg Neuts % (Manual) Lymphocytes % (Manual) Eosinophils % (Manual) Seg Neutrophils # Lymphocytes # (Manual) Eosinophils # (Manual) PT INR D-Dimer POC ABG pH POC ABG pCO2 POC ABG pO2 ABG pO2 ABG HCO3 ABG Base Excess ABG Hemoglobin Oxyhemoglobin Sodium Potassium Chloride Carbon Dioxide BUN Creatinine Glucose POC Glucose 117 H 140 H 114 H Calcium Phosphorus Magnesium ALT Alkaline Phosphatase Total Creatine Kinase CK-MB (CK-2) Rel Index Troponin T Albumin LDL Cholesterol Direct PTH Intact Salicylates Acetaminophen Crossmatch 03/30/19 03/30/19 03/30/19 10:13 10:13 23:53 WBC RBC 2.81 L Hgb 7.7 L Hct 24.3 L MCV MCH 27 L MCHC RDW 19.0 H Plt Count Lymph % (Auto) 12.2 L [place] % (Auto) Eos % (Auto) 7.9 H Baso % (Auto) Lymph # 1.0 L [place] # Eos # 0.6 H Baso # Seg Neutrophils % 72.3 H Seg Neuts % (Manual) Lymphocytes % (Manual) Eosinophils % (Manual) Seg Neutrophils # Lymphocytes # (Manual) Eosinophils # (Manual) PT INR D-Dimer POC ABG pH POC ABG pCO2 POC ABG pO2 ABG pO2 ABG HCO3 ABG Base Excess ABG Hemoglobin Oxyhemoglobin Sodium Potassium 5.1 H Chloride 96.5 L Carbon Dioxide BUN 73 H Creatinine 3.9 H D Glucose POC Glucose 114 H Calcium 10.3 H Phosphorus 6.30 H Magnesium 2.70 H ALT Alkaline Phosphatase 185 H Total Creatine Kinase CK-MB (CK-2) Rel Index Troponin T Albumin 2.6 L LDL Cholesterol Direct PTH Intact Salicylates Acetaminophen Crossmatch 03/31/19 03/31/19 03/31/19 05:45 10:26 10:26 WBC RBC 3.01 L Hgb 8.2 L Hct 26.4 L MCV MCH 27 L MCHC 31 L RDW 20.3 H Plt Count Lymph % (Auto) 13.3 L [place] % (Auto) Eos % (Auto) 7.2 H Baso % (Auto) Lymph # 1.1 L [place] # Eos # 0.6 H Baso # Seg Neutrophils % 72.1 H Seg Neuts % (Manual) Lymphocytes % (Manual) Eosinophils % (Manual) Seg Neutrophils # Lymphocytes # (Manual) Eosinophils # (Manual) PT INR D-Dimer POC ABG pH POC ABG pCO2 POC ABG pO2 ABG pO2 ABG HCO3 ABG Base Excess ABG Hemoglobin Oxyhemoglobin Sodium Potassium Chloride 96.9 L Carbon Dioxide 33 H BUN 37 H Creatinine 2.4 H Glucose POC Glucose 108 H Calcium 10.3 H Phosphorus Magnesium ALT Alkaline Phosphatase Total Creatine Kinase CK-MB (CK-2) Rel Index Troponin T Albumin LDL Cholesterol Direct PTH Intact Salicylates Acetaminophen Crossmatch 03/31/19 04/01/19 04/01/19 12:38 05:48 12:06 WBC RBC Hgb Hct MCV MCH MCHC RDW Plt Count Lymph % (Auto) [place] % (Auto) Eos % (Auto) Baso % (Auto) Lymph # [place] # Eos # Baso # Seg Neutrophils % Seg Neuts % (Manual) Lymphocytes % (Manual) Eosinophils % (Manual) Seg Neutrophils # Lymphocytes # (Manual) Eosinophils # (Manual) PT INR D-Dimer POC ABG pH POC ABG pCO2 POC ABG pO2 ABG pO2 ABG HCO3 ABG Base Excess ABG Hemoglobin Oxyhemoglobin Sodium Potassium Chloride Carbon Dioxide BUN Creatinine Glucose POC Glucose 108 H 114 H 111 H Calcium Phosphorus Magnesium ALT Alkaline Phosphatase Total Creatine Kinase CK-MB (CK-2) Rel Index Troponin T Albumin LDL Cholesterol Direct PTH Intact Salicylates Acetaminophen Crossmatch 04/01/19 04/02/19 04/04/19 18:24 00:36 23:55 WBC RBC Hgb Hct MCV MCH MCHC RDW Plt Count Lymph % (Auto) [place] % (Auto) Eos % (Auto) Baso % (Auto) Lymph # [place] # Eos # Baso # Seg Neutrophils % Seg Neuts % (Manual) Lymphocytes % (Manual) Eosinophils % (Manual) Seg Neutrophils # Lymphocytes # (Manual) Eosinophils # (Manual) PT INR D-Dimer POC ABG pH POC ABG pCO2 POC ABG pO2 ABG pO2 ABG HCO3 ABG Base Excess ABG Hemoglobin Oxyhemoglobin Sodium Potassium Chloride Carbon Dioxide BUN Creatinine Glucose POC Glucose 113 H 117 H 109 H Calcium Phosphorus Magnesium ALT Alkaline Phosphatase Total Creatine Kinase CK-MB (CK-2) Rel Index Troponin T Albumin LDL Cholesterol Direct PTH Intact Salicylates Acetaminophen Crossmatch 04/06/19 04/06/19 04/06/19 00:11 06:02 23:30 WBC RBC Hgb Hct MCV MCH MCHC RDW Plt Count Lymph % (Auto) [place] % (Auto) Eos % (Auto) Baso % (Auto) Lymph # [place] # Eos # Baso # Seg Neutrophils % Seg Neuts % (Manual) Lymphocytes % (Manual) Eosinophils % (Manual) Seg Neutrophils # Lymphocytes # (Manual) Eosinophils # (Manual) PT INR D-Dimer POC ABG pH POC ABG pCO2 POC ABG pO2 ABG pO2 ABG HCO3 ABG Base Excess ABG Hemoglobin Oxyhemoglobin Sodium Potassium Chloride Carbon Dioxide BUN Creatinine Glucose POC Glucose 116 H 112 H 112 H Calcium Phosphorus Magnesium ALT Alkaline Phosphatase Total Creatine Kinase CK-MB (CK-2) Rel Index Troponin T Albumin LDL Cholesterol Direct PTH Intact Salicylates Acetaminophen Crossmatch 04/08/19 04/08/19 04/08/19 02:23 06:19 13:01 WBC RBC Hgb Hct MCV MCH MCHC RDW Plt Count Lymph % (Auto) [place] % (Auto) Eos % (Auto) Baso % (Auto) Lymph # [place] # Eos # Baso # Seg Neutrophils % Seg Neuts % (Manual) Lymphocytes % (Manual) Eosinophils % (Manual) Seg Neutrophils # Lymphocytes # (Manual) Eosinophils # (Manual) PT INR D-Dimer POC ABG pH POC ABG pCO2 POC ABG pO2 ABG pO2 ABG HCO3 ABG Base Excess ABG Hemoglobin Oxyhemoglobin Sodium Potassium Chloride Carbon Dioxide BUN Creatinine Glucose POC Glucose 144 H 126 H 118 H Calcium Phosphorus Magnesium ALT Alkaline Phosphatase Total Creatine Kinase CK-MB (CK-2) Rel Index Troponin T Albumin LDL Cholesterol Direct PTH Intact Salicylates Acetaminophen Crossmatch 04/08/19 04/09/19 04/10/19 23:28 05:52 06:34 WBC RBC Hgb Hct MCV MCH MCHC RDW Plt Count Lymph % (Auto) [place] % (Auto) Eos % (Auto) Baso % (Auto) Lymph # [place] # Eos # Baso # Seg Neutrophils % Seg Neuts % (Manual) Lymphocytes % (Manual) Eosinophils % (Manual) Seg Neutrophils # Lymphocytes # (Manual) Eosinophils # (Manual) PT INR D-Dimer POC ABG pH POC ABG pCO2 POC ABG pO2 ABG pO2 ABG HCO3 ABG Base Excess ABG Hemoglobin Oxyhemoglobin Sodium Potassium Chloride Carbon Dioxide BUN Creatinine Glucose POC Glucose 119 H 116 H 114 H Calcium Phosphorus Magnesium ALT Alkaline Phosphatase Total Creatine Kinase CK-MB (CK-2) Rel Index Troponin T Albumin LDL Cholesterol Direct PTH Intact Salicylates Acetaminophen Crossmatch 04/10/19 04/10/19 04/11/19 12:34 18:59 00:36 WBC RBC Hgb Hct MCV MCH MCHC RDW Plt Count Lymph % (Auto) [place] % (Auto) Eos % (Auto) Baso % (Auto) Lymph # [place] # Eos # Baso # Seg Neutrophils % Seg Neuts % (Manual) Lymphocytes % (Manual) Eosinophils % (Manual) Seg Neutrophils # Lymphocytes # (Manual) Eosinophils # (Manual) PT INR D-Dimer POC ABG pH POC ABG pCO2 POC ABG pO2 ABG pO2 ABG HCO3 ABG Base Excess ABG Hemoglobin Oxyhemoglobin Sodium Potassium Chloride Carbon Dioxide BUN Creatinine Glucose POC Glucose 112 H 109 H 124 H Calcium Phosphorus Magnesium ALT Alkaline Phosphatase Total Creatine Kinase CK-MB (CK-2) Rel Index Troponin T Albumin LDL Cholesterol Direct PTH Intact Salicylates Acetaminophen Crossmatch 04/11/19 04/11/19 04/12/19 08:01 17:25 02:18 WBC RBC Hgb Hct MCV MCH MCHC RDW Plt Count Lymph % (Auto) [place] % (Auto) Eos % (Auto) Baso % (Auto) Lymph # [place] # Eos # Baso # Seg Neutrophils % Seg Neuts % (Manual) Lymphocytes % (Manual) Eosinophils % (Manual) Seg Neutrophils # Lymphocytes # (Manual) Eosinophils # (Manual) PT INR D-Dimer POC ABG pH POC ABG pCO2 POC ABG pO2 ABG pO2 ABG HCO3 ABG Base Excess ABG Hemoglobin Oxyhemoglobin Sodium Potassium Chloride Carbon Dioxide BUN Creatinine Glucose POC Glucose 118 H 106 H 125 H Calcium Phosphorus Magnesium ALT Alkaline Phosphatase Total Creatine Kinase CK-MB (CK-2) Rel Index Troponin T Albumin LDL Cholesterol Direct PTH Intact Salicylates Acetaminophen Crossmatch 04/12/19 04/12/19 04/12/19 06:24 12:22 17:13 WBC RBC Hgb Hct MCV MCH MCHC RDW Plt Count Lymph % (Auto) [place] % (Auto) Eos % (Auto) Baso % (Auto) Lymph # [place] # Eos # Baso # Seg Neutrophils % Seg Neuts % (Manual) Lymphocytes % (Manual) Eosinophils % (Manual) Seg Neutrophils # Lymphocytes # (Manual) Eosinophils # (Manual) PT INR D-Dimer POC ABG pH POC ABG pCO2 POC ABG pO2 ABG pO2 ABG HCO3 ABG Base Excess ABG Hemoglobin Oxyhemoglobin Sodium Potassium Chloride Carbon Dioxide BUN Creatinine Glucose POC Glucose 128 H 114 H 110 H Calcium Phosphorus Magnesium ALT Alkaline Phosphatase Total Creatine Kinase CK-MB (CK-2) Rel Index Troponin T Albumin LDL Cholesterol Direct PTH Intact Salicylates Acetaminophen Crossmatch 04/13/19 04/13/19 04/13/19 06:59 07:31 07:31 WBC RBC 3.34 L Hgb 8.9 L Hct 28.6 L MCV MCH 27 L MCHC 31 L RDW 19.6 H Plt Count Lymph % (Auto) [place] % (Auto) Eos % (Auto) Baso % (Auto) Lymph # [place] # Eos # Baso # Seg Neutrophils % Seg Neuts % (Manual) Lymphocytes % (Manual) Eosinophils % (Manual) Seg Neutrophils # Lymphocytes # (Manual) Eosinophils # (Manual) PT INR D-Dimer POC ABG pH POC ABG pCO2 POC ABG pO2 ABG pO2 ABG HCO3 ABG Base Excess ABG Hemoglobin Oxyhemoglobin Sodium Potassium Chloride 96.4 L Carbon Dioxide 33 H BUN 66 H Creatinine 4.5 H Glucose 103 H POC Glucose 107 H Calcium Phosphorus Magnesium ALT Alkaline Phosphatase Total Creatine Kinase CK-MB (CK-2) Rel Index Troponin T Albumin LDL Cholesterol Direct PTH Intact Salicylates Acetaminophen Crossmatch 04/13/19 04/14/19 04/14/19 23:43 05:50 13:07 WBC RBC Hgb Hct MCV MCH MCHC RDW Plt Count Lymph % (Auto) [place] % (Auto) Eos % (Auto) Baso % (Auto) Lymph # [place] # Eos # Baso # Seg Neutrophils % Seg Neuts % (Manual) Lymphocytes % (Manual) Eosinophils % (Manual) Seg Neutrophils # Lymphocytes # (Manual) Eosinophils # (Manual) PT INR D-Dimer POC ABG pH POC ABG pCO2 POC ABG pO2 ABG pO2 ABG HCO3 ABG Base Excess ABG Hemoglobin Oxyhemoglobin Sodium Potassium Chloride Carbon Dioxide BUN Creatinine Glucose POC Glucose 119 H 112 H 112 H Calcium Phosphorus Magnesium ALT Alkaline Phosphatase Total Creatine Kinase CK-MB (CK-2) Rel Index Troponin T Albumin LDL Cholesterol Direct PTH Intact Salicylates Acetaminophen Crossmatch 04/14/19 04/15/19 04/15/19 18:35 01:18 05:17 WBC RBC Hgb Hct MCV MCH MCHC RDW Plt Count Lymph % (Auto) [place] % (Auto) Eos % (Auto) Baso % (Auto) Lymph # [place] # Eos # Baso # Seg Neutrophils % Seg Neuts % (Manual) Lymphocytes % (Manual) Eosinophils % (Manual) Seg Neutrophils # Lymphocytes # (Manual) Eosinophils # (Manual) PT INR D-Dimer POC ABG pH POC ABG pCO2 POC ABG pO2 ABG pO2 ABG HCO3 ABG Base Excess ABG Hemoglobin Oxyhemoglobin Sodium Potassium Chloride Carbon Dioxide BUN Creatinine Glucose POC Glucose 114 H 114 H 114 H Calcium Phosphorus Magnesium ALT Alkaline Phosphatase Total Creatine Kinase CK-MB (CK-2) Rel Index Troponin T Albumin LDL Cholesterol Direct PTH Intact Salicylates Acetaminophen Crossmatch 04/15/19 04/15/19 04/16/19 11:50 23:39 05:41 WBC RBC Hgb Hct MCV MCH MCHC RDW Plt Count Lymph % (Auto) [place] % (Auto) Eos % (Auto) Baso % (Auto) Lymph # [place] # Eos # Baso # Seg Neutrophils % Seg Neuts % (Manual) Lymphocytes % (Manual) Eosinophils % (Manual) Seg Neutrophils # Lymphocytes # (Manual) Eosinophils # (Manual) PT INR D-Dimer POC ABG pH POC ABG pCO2 POC ABG pO2 ABG pO2 ABG HCO3 ABG Base Excess ABG Hemoglobin Oxyhemoglobin Sodium Potassium Chloride Carbon Dioxide BUN Creatinine Glucose POC Glucose 109 H 115 H 125 H Calcium Phosphorus Magnesium ALT Alkaline Phosphatase Total Creatine Kinase CK-MB (CK-2) Rel Index Troponin T Albumin LDL Cholesterol Direct PTH Intact Salicylates Acetaminophen Crossmatch 04/16/19 04/17/19 04/17/19 12:53 01:00 12:38 WBC RBC Hgb Hct MCV MCH MCHC RDW Plt Count Lymph % (Auto) [place] % (Auto) Eos % (Auto) Baso % (Auto) Lymph # [place] # Eos # Baso # Seg Neutrophils % Seg Neuts % (Manual) Lymphocytes % (Manual) Eosinophils % (Manual) Seg Neutrophils # Lymphocytes # (Manual) Eosinophils # (Manual) PT INR D-Dimer POC ABG pH POC ABG pCO2 POC ABG pO2 ABG pO2 ABG HCO3 ABG Base Excess ABG Hemoglobin Oxyhemoglobin Sodium Potassium Chloride Carbon Dioxide BUN Creatinine Glucose POC Glucose 121 H 127 H 159 H Calcium Phosphorus Magnesium ALT Alkaline Phosphatase Total Creatine Kinase CK-MB (CK-2) Rel Index Troponin T Albumin LDL Cholesterol Direct PTH Intact Salicylates Acetaminophen Crossmatch 04/17/19 04/17/19 04/18/19 18:27 23:36 07:19 WBC RBC 3.49 L Hgb 9.0 L Hct 29.9 L MCV MCH 26 L MCHC 30 L RDW 20.0 H Plt Count Lymph % (Auto) [place] % (Auto) Eos % (Auto) Baso % (Auto) Lymph # [place] # Eos # Baso # Seg Neutrophils % Seg Neuts % (Manual) Lymphocytes % (Manual) Eosinophils % (Manual) Seg Neutrophils # Lymphocytes # (Manual) Eosinophils # (Manual) PT INR D-Dimer POC ABG pH POC ABG pCO2 POC ABG pO2 ABG pO2 ABG HCO3 ABG Base Excess ABG Hemoglobin Oxyhemoglobin Sodium Potassium Chloride Carbon Dioxide BUN Creatinine Glucose POC Glucose 109 H 134 H Calcium Phosphorus Magnesium ALT Alkaline Phosphatase Total Creatine Kinase CK-MB (CK-2) Rel Index Troponin T Albumin LDL Cholesterol Direct PTH Intact Salicylates Acetaminophen Crossmatch 04/18/19 04/18/19 04/18/19 07:19 12:16 17:09 WBC RBC Hgb Hct MCV MCH MCHC RDW Plt Count Lymph % (Auto) [place] % (Auto) Eos % (Auto) Baso % (Auto) Lymph # [place] # Eos # Baso # Seg Neutrophils % Seg Neuts % (Manual) Lymphocytes % (Manual) Eosinophils % (Manual) Seg Neutrophils # Lymphocytes # (Manual) Eosinophils # (Manual) PT INR D-Dimer POC ABG pH POC ABG pCO2 POC ABG pO2 ABG pO2 ABG HCO3 ABG Base Excess ABG Hemoglobin Oxyhemoglobin Sodium Potassium Chloride Carbon Dioxide BUN 41 H Creatinine 2.9 H Glucose 122 H POC Glucose 125 H 131 H Calcium Phosphorus Magnesium ALT Alkaline Phosphatase Total Creatine Kinase CK-MB (CK-2) Rel Index Troponin T Albumin LDL Cholesterol Direct PTH Intact Salicylates Acetaminophen Crossmatch 04/18/19 04/19/19 04/19/19 23:57 05:55 11:35 WBC RBC Hgb Hct MCV MCH MCHC RDW Plt Count Lymph % (Auto) [place] % (Auto) Eos % (Auto) Baso % (Auto) Lymph # [place] # Eos # Baso # Seg Neutrophils % Seg Neuts % (Manual) Lymphocytes % (Manual) Eosinophils % (Manual) Seg Neutrophils # Lymphocytes # (Manual) Eosinophils # (Manual) PT INR D-Dimer POC ABG pH POC ABG pCO2 POC ABG pO2 ABG pO2 ABG HCO3 ABG Base Excess ABG Hemoglobin Oxyhemoglobin Sodium Potassium Chloride Carbon Dioxide BUN Creatinine Glucose POC Glucose 159 H 144 H 177 H Calcium Phosphorus Magnesium ALT Alkaline Phosphatase Total Creatine Kinase CK-MB (CK-2) Rel Index Troponin T Albumin LDL Cholesterol Direct PTH Intact Salicylates Acetaminophen Crossmatch 04/19/19 04/20/19 04/20/19 16:36 02:05 06:28 WBC RBC Hgb Hct MCV MCH MCHC RDW Plt Count Lymph % (Auto) [place] % (Auto) Eos % (Auto) Baso % (Auto) Lymph # [place] # Eos # Baso # Seg Neutrophils % Seg Neuts % (Manual) Lymphocytes % (Manual) Eosinophils % (Manual) Seg Neutrophils # Lymphocytes # (Manual) Eosinophils # (Manual) PT INR D-Dimer POC ABG pH POC ABG pCO2 POC ABG pO2 ABG pO2 ABG HCO3 ABG Base Excess ABG Hemoglobin Oxyhemoglobin Sodium Potassium Chloride Carbon Dioxide BUN Creatinine Glucose POC Glucose 134 H 142 H 132 H Calcium Phosphorus Magnesium ALT Alkaline Phosphatase Total Creatine Kinase CK-MB (CK-2) Rel Index Troponin T Albumin LDL Cholesterol Direct PTH Intact Salicylates Acetaminophen Crossmatch 04/20/19 04/20/19 04/21/19 12:37 23:34 05:59 WBC RBC Hgb Hct MCV MCH MCHC RDW Plt Count Lymph % (Auto) [place] % (Auto) Eos % (Auto) Baso % (Auto) Lymph # [place] # Eos # Baso # Seg Neutrophils % Seg Neuts % (Manual) Lymphocytes % (Manual) Eosinophils % (Manual) Seg Neutrophils # Lymphocytes # (Manual) Eosinophils # (Manual) PT INR D-Dimer POC ABG pH POC ABG pCO2 POC ABG pO2 ABG pO2 ABG HCO3 ABG Base Excess ABG Hemoglobin Oxyhemoglobin Sodium Potassium Chloride Carbon Dioxide BUN Creatinine Glucose POC Glucose 163 H 166 H 140 H Calcium Phosphorus Magnesium ALT Alkaline Phosphatase Total Creatine Kinase CK-MB (CK-2) Rel Index Troponin T Albumin LDL Cholesterol Direct PTH Intact Salicylates Acetaminophen Crossmatch 04/21/19 04/21/19 04/21/19 12:07 17:22 23:43 WBC RBC Hgb Hct MCV MCH MCHC RDW Plt Count Lymph % (Auto) [place] % (Auto) Eos % (Auto) Baso % (Auto) Lymph # [place] # Eos # Baso # Seg Neutrophils % Seg Neuts % (Manual) Lymphocytes % (Manual) Eosinophils % (Manual) Seg Neutrophils # Lymphocytes # (Manual) Eosinophils # (Manual) PT INR D-Dimer POC ABG pH POC ABG pCO2 POC ABG pO2 ABG pO2 ABG HCO3 ABG Base Excess ABG Hemoglobin Oxyhemoglobin Sodium Potassium Chloride Carbon Dioxide BUN Creatinine Glucose POC Glucose 135 H 141 H 138 H Calcium Phosphorus Magnesium ALT Alkaline Phosphatase Total Creatine Kinase CK-MB (CK-2) Rel Index Troponin T Albumin LDL Cholesterol Direct PTH Intact Salicylates Acetaminophen Crossmatch 04/22/19 04/22/19 04/22/19 05:12 18:24 23:49 WBC RBC Hgb Hct MCV MCH MCHC RDW Plt Count Lymph % (Auto) [place] % (Auto) Eos % (Auto) Baso % (Auto) Lymph # [place] # Eos # Baso # Seg Neutrophils % Seg Neuts % (Manual) Lymphocytes % (Manual) Eosinophils % (Manual) Seg Neutrophils # Lymphocytes # (Manual) Eosinophils # (Manual) PT INR D-Dimer POC ABG pH POC ABG pCO2 POC ABG pO2 ABG pO2 ABG HCO3 ABG Base Excess ABG Hemoglobin Oxyhemoglobin Sodium Potassium Chloride Carbon Dioxide BUN Creatinine Glucose POC Glucose 141 H 137 H 142 H Calcium Phosphorus Magnesium ALT Alkaline Phosphatase Total Creatine Kinase CK-MB (CK-2) Rel Index Troponin T Albumin LDL Cholesterol Direct PTH Intact Salicylates Acetaminophen Crossmatch 04/23/19 04/23/19 04/23/19 05:53 08:13 11:58 WBC RBC Hgb Hct MCV MCH MCHC RDW Plt Count Lymph % (Auto) [place] % (Auto) Eos % (Auto) Baso % (Auto) Lymph # [place] # Eos # Baso # Seg Neutrophils % Seg Neuts % (Manual) Lymphocytes % (Manual) Eosinophils % (Manual) Seg Neutrophils # Lymphocytes # (Manual) Eosinophils # (Manual) PT INR D-Dimer POC ABG pH POC ABG pCO2 POC ABG pO2 ABG pO2 ABG HCO3 ABG Base Excess ABG Hemoglobin Oxyhemoglobin Sodium Potassium Chloride Carbon Dioxide BUN Creatinine Glucose POC Glucose 132 H 154 H 165 H Calcium Phosphorus Magnesium ALT Alkaline Phosphatase Total Creatine Kinase CK-MB (CK-2) Rel Index Troponin T Albumin LDL Cholesterol Direct PTH Intact Salicylates Acetaminophen Crossmatch 04/23/19 04/24/19 04/24/19 16:28 00:28 07:00 WBC RBC Hgb Hct MCV MCH MCHC RDW Plt Count Lymph % (Auto) [place] % (Auto) Eos % (Auto) Baso % (Auto) Lymph # [place] # Eos # Baso # Seg Neutrophils % Seg Neuts % (Manual) Lymphocytes % (Manual) Eosinophils % (Manual) Seg Neutrophils # Lymphocytes # (Manual) Eosinophils # (Manual) PT INR D-Dimer POC ABG pH POC ABG pCO2 POC ABG pO2 ABG pO2 ABG HCO3 ABG Base Excess ABG Hemoglobin Oxyhemoglobin Sodium Potassium Chloride Carbon Dioxide BUN Creatinine Glucose POC Glucose 136 H 140 H 141 H Calcium Phosphorus Magnesium ALT Alkaline Phosphatase Total Creatine Kinase CK-MB (CK-2) Rel Index Troponin T Albumin LDL Cholesterol Direct PTH Intact Salicylates Acetaminophen Crossmatch 04/24/19 04/24/19 04/25/19 12:38 18:57 00:38 WBC RBC Hgb Hct MCV MCH MCHC RDW Plt Count Lymph % (Auto) [place] % (Auto) Eos % (Auto) Baso % (Auto) Lymph # [place] # Eos # Baso # Seg Neutrophils % Seg Neuts % (Manual) Lymphocytes % (Manual) Eosinophils % (Manual) Seg Neutrophils # Lymphocytes # (Manual) Eosinophils # (Manual) PT INR D-Dimer POC ABG pH POC ABG pCO2 POC ABG pO2 ABG pO2 ABG HCO3 ABG Base Excess ABG Hemoglobin Oxyhemoglobin Sodium Potassium Chloride Carbon Dioxide BUN Creatinine Glucose POC Glucose 152 H 166 H 128 H Calcium Phosphorus Magnesium ALT Alkaline Phosphatase Total Creatine Kinase CK-MB (CK-2) Rel Index Troponin T Albumin LDL Cholesterol Direct PTH Intact Salicylates Acetaminophen Crossmatch 04/25/19 04/25/19 04/25/19 05:44 13:43 18:34 WBC RBC Hgb Hct MCV MCH MCHC RDW Plt Count Lymph % (Auto) [place] % (Auto) Eos % (Auto) Baso % (Auto) Lymph # [place] # Eos # Baso # Seg Neutrophils % Seg Neuts % (Manual) Lymphocytes % (Manual) Eosinophils % (Manual) Seg Neutrophils # Lymphocytes # (Manual) Eosinophils # (Manual) PT INR D-Dimer POC ABG pH POC ABG pCO2 POC ABG pO2 ABG pO2 ABG HCO3 ABG Base Excess ABG Hemoglobin Oxyhemoglobin Sodium Potassium Chloride Carbon Dioxide BUN Creatinine Glucose POC Glucose 153 H 186 H 124 H Calcium Phosphorus Magnesium ALT Alkaline Phosphatase Total Creatine Kinase CK-MB (CK-2) Rel Index Troponin T Albumin LDL Cholesterol Direct PTH Intact Salicylates Acetaminophen Crossmatch 04/26/19 04/26/19 04/26/19 00:59 05:52 10:12 WBC 11.5 H RBC 2.84 L Hgb 7.4 L Hct 23.3 L MCV 82 L MCH 26 L MCHC RDW 20.3 H Plt Count Lymph % (Auto) 7.5 L [place] % (Auto) 7.5 H Eos % (Auto) 5.3 H Baso % (Auto) Lymph # 0.9 L [place] # 0.9 H Eos # 0.6 H Baso # Seg Neutrophils % 79.2 H Seg Neuts % (Manual) Lymphocytes % (Manual) Eosinophils % (Manual) Seg Neutrophils # 9.1 H Lymphocytes # (Manual) Eosinophils # (Manual) PT INR D-Dimer POC ABG pH POC ABG pCO2 POC ABG pO2 ABG pO2 ABG HCO3 ABG Base Excess ABG Hemoglobin Oxyhemoglobin Sodium Potassium Chloride Carbon Dioxide BUN Creatinine Glucose POC Glucose 163 H 146 H Calcium Phosphorus Magnesium ALT Alkaline Phosphatase Total Creatine Kinase CK-MB (CK-2) Rel Index Troponin T Albumin LDL Cholesterol Direct PTH Intact Salicylates Acetaminophen Crossmatch 04/26/19 04/26/19 04/26/19 10:12 12:15 19:00 WBC RBC Hgb Hct MCV MCH MCHC RDW Plt Count Lymph % (Auto) [place] % (Auto) Eos % (Auto) Baso % (Auto) Lymph # [place] # Eos # Baso # Seg Neutrophils % Seg Neuts % (Manual) Lymphocytes % (Manual) Eosinophils % (Manual) Seg Neutrophils # Lymphocytes # (Manual) Eosinophils # (Manual) PT INR D-Dimer POC ABG pH POC ABG pCO2 POC ABG pO2 ABG pO2 ABG HCO3 ABG Base Excess ABG Hemoglobin Oxyhemoglobin Sodium 130 L Potassium Chloride 87.4 L Carbon Dioxide BUN 93 H Creatinine 4.2 H Glucose 140 H POC Glucose 155 H 179 H Calcium Phosphorus Magnesium ALT Alkaline Phosphatase Total Creatine Kinase CK-MB (CK-2) Rel Index Troponin T Albumin LDL Cholesterol Direct PTH Intact Salicylates Acetaminophen Crossmatch 04/27/19 04/27/19 04/27/19 00:23 06:34 17:13 WBC RBC Hgb Hct MCV MCH MCHC RDW Plt Count Lymph % (Auto) [place] % (Auto) Eos % (Auto) Baso % (Auto) Lymph # [place] # Eos # Baso # Seg Neutrophils % Seg Neuts % (Manual) Lymphocytes % (Manual) Eosinophils % (Manual) Seg Neutrophils # Lymphocytes # (Manual) Eosinophils # (Manual) PT INR D-Dimer POC ABG pH POC ABG pCO2 POC ABG pO2 ABG pO2 ABG HCO3 ABG Base Excess ABG Hemoglobin Oxyhemoglobin Sodium Potassium Chloride Carbon Dioxide BUN Creatinine Glucose POC Glucose 158 H 140 H 152 H Calcium Phosphorus Magnesium ALT Alkaline Phosphatase Total Creatine Kinase CK-MB (CK-2) Rel Index Troponin T Albumin LDL Cholesterol Direct PTH Intact Salicylates Acetaminophen Crossmatch 04/27/19 04/28/19 04/28/19 23:50 05:18 11:37 WBC RBC Hgb Hct MCV MCH MCHC RDW Plt Count Lymph % (Auto) [place] % (Auto) Eos % (Auto) Baso % (Auto) Lymph # [place] # Eos # Baso # Seg Neutrophils % Seg Neuts % (Manual) Lymphocytes % (Manual) Eosinophils % (Manual) Seg Neutrophils # Lymphocytes # (Manual) Eosinophils # (Manual) PT INR D-Dimer POC ABG pH POC ABG pCO2 POC ABG pO2 ABG pO2 ABG HCO3 ABG Base Excess ABG Hemoglobin Oxyhemoglobin Sodium Potassium Chloride Carbon Dioxide BUN Creatinine Glucose POC Glucose 160 H 145 H 177 H Calcium Phosphorus Magnesium ALT Alkaline Phosphatase Total Creatine Kinase CK-MB (CK-2) Rel Index Troponin T Albumin LDL Cholesterol Direct PTH Intact Salicylates Acetaminophen Crossmatch 04/28/19 04/28/19 04/29/19 18:31 23:47 05:50 WBC RBC Hgb Hct MCV MCH MCHC RDW Plt Count Lymph % (Auto) [place] % (Auto) Eos % (Auto) Baso % (Auto) Lymph # [place] # Eos # Baso # Seg Neutrophils % Seg Neuts % (Manual) Lymphocytes % (Manual) Eosinophils % (Manual) Seg Neutrophils # Lymphocytes # (Manual) Eosinophils # (Manual) PT INR D-Dimer POC ABG pH POC ABG pCO2 POC ABG pO2 ABG pO2 ABG HCO3 ABG Base Excess ABG Hemoglobin Oxyhemoglobin Sodium Potassium Chloride Carbon Dioxide BUN Creatinine Glucose POC Glucose 153 H 117 H 177 H Calcium Phosphorus Magnesium ALT Alkaline Phosphatase Total Creatine Kinase CK-MB (CK-2) Rel Index Troponin T Albumin LDL Cholesterol Direct PTH Intact Salicylates Acetaminophen Crossmatch 04/29/19 04/30/19 04/30/19 17:04 01:02 06:42 WBC RBC Hgb Hct MCV MCH MCHC RDW Plt Count Lymph % (Auto) [place] % (Auto) Eos % (Auto) Baso % (Auto) Lymph # [place] # Eos # Baso # Seg Neutrophils % Seg Neuts % (Manual) Lymphocytes % (Manual) Eosinophils % (Manual) Seg Neutrophils # Lymphocytes # (Manual) Eosinophils # (Manual) PT INR D-Dimer POC ABG pH POC ABG pCO2 POC ABG pO2 ABG pO2 ABG HCO3 ABG Base Excess ABG Hemoglobin Oxyhemoglobin Sodium Potassium Chloride Carbon Dioxide BUN Creatinine Glucose POC Glucose 205 H 143 H 145 H Calcium Phosphorus Magnesium ALT Alkaline Phosphatase Total Creatine Kinase CK-MB (CK-2) Rel Index Troponin T Albumin LDL Cholesterol Direct PTH Intact Salicylates Acetaminophen Crossmatch 04/30/19 04/30/19 04/30/19 11:31 18:12 23:38 WBC RBC Hgb Hct MCV MCH MCHC RDW Plt Count Lymph % (Auto) [place] % (Auto) Eos % (Auto) Baso % (Auto) Lymph # [place] # Eos # Baso # Seg Neutrophils % Seg Neuts % (Manual) Lymphocytes % (Manual) Eosinophils % (Manual) Seg Neutrophils # Lymphocytes # (Manual) Eosinophils # (Manual) PT INR D-Dimer POC ABG pH POC ABG pCO2 POC ABG pO2 ABG pO2 ABG HCO3 ABG Base Excess ABG Hemoglobin Oxyhemoglobin Sodium Potassium Chloride Carbon Dioxide BUN Creatinine Glucose POC Glucose 162 H 117 H 139 H Calcium Phosphorus Magnesium ALT Alkaline Phosphatase Total Creatine Kinase CK-MB (CK-2) Rel Index Troponin T Albumin LDL Cholesterol Direct PTH Intact Salicylates Acetaminophen Crossmatch 05/01/19 05/01/19 05/02/19 06:06 23:41 05:59 WBC RBC Hgb Hct MCV MCH MCHC RDW Plt Count Lymph % (Auto) [place] % (Auto) Eos % (Auto) Baso % (Auto) Lymph # [place] # Eos # Baso # Seg Neutrophils % Seg Neuts % (Manual) Lymphocytes % (Manual) Eosinophils % (Manual) Seg Neutrophils # Lymphocytes # (Manual) Eosinophils # (Manual) PT INR D-Dimer POC ABG pH POC ABG pCO2 POC ABG pO2 ABG pO2 ABG HCO3 ABG Base Excess ABG Hemoglobin Oxyhemoglobin Sodium Potassium Chloride Carbon Dioxide BUN Creatinine Glucose POC Glucose 150 H 140 H 130 H Calcium Phosphorus Magnesium ALT Alkaline Phosphatase Total Creatine Kinase CK-MB (CK-2) Rel Index Troponin T Albumin LDL Cholesterol Direct PTH Intact Salicylates Acetaminophen Crossmatch 05/02/19 05/02/19 05/03/19 11:55 18:10 00:15 WBC RBC Hgb Hct MCV MCH MCHC RDW Plt Count Lymph % (Auto) [place] % (Auto) Eos % (Auto) Baso % (Auto) Lymph # [place] # Eos # Baso # Seg Neutrophils % Seg Neuts % (Manual) Lymphocytes % (Manual) Eosinophils % (Manual) Seg Neutrophils # Lymphocytes # (Manual) Eosinophils # (Manual) PT INR D-Dimer POC ABG pH POC ABG pCO2 POC ABG pO2 ABG pO2 ABG HCO3 ABG Base Excess ABG Hemoglobin Oxyhemoglobin Sodium Potassium Chloride Carbon Dioxide BUN Creatinine Glucose POC Glucose 146 H 141 H 145 H Calcium Phosphorus Magnesium ALT Alkaline Phosphatase Total Creatine Kinase CK-MB (CK-2) Rel Index Troponin T Albumin LDL Cholesterol Direct PTH Intact Salicylates Acetaminophen Crossmatch 05/03/19 05/03/19 05/03/19 05:49 05:49 06:01 WBC RBC 2.84 L Hgb 7.2 L Hct 22.9 L MCV 81 L MCH 26 L MCHC RDW 20.6 H Plt Count 456 H Lymph % (Auto) 11.8 L [place] % (Auto) Eos % (Auto) 10.6 H Baso % (Auto) Lymph # 1.1 L [place] # Eos # 1.0 H Baso # Seg Neutrophils % 70.4 H Seg Neuts % (Manual) Lymphocytes % (Manual) Eosinophils % (Manual) Seg Neutrophils # Lymphocytes # (Manual) Eosinophils # (Manual) PT INR D-Dimer POC ABG pH POC ABG pCO2 POC ABG pO2 ABG pO2 ABG HCO3 ABG Base Excess ABG Hemoglobin Oxyhemoglobin Sodium Potassium Chloride 94.8 L Carbon Dioxide BUN 66 H Creatinine 3.6 H Glucose 129 H POC Glucose 135 H Calcium Phosphorus Magnesium ALT Alkaline Phosphatase Total Creatine Kinase CK-MB (CK-2) Rel Index Troponin T Albumin LDL Cholesterol Direct PTH Intact Salicylates Acetaminophen Crossmatch 05/03/19 05/03/19 05/04/19 11:04 18:40 00:06 WBC RBC Hgb Hct MCV MCH MCHC RDW Plt Count Lymph % (Auto) [place] % (Auto) Eos % (Auto) Baso % (Auto) Lymph # [place] # Eos # Baso # Seg Neutrophils % Seg Neuts % (Manual) Lymphocytes % (Manual) Eosinophils % (Manual) Seg Neutrophils # Lymphocytes # (Manual) Eosinophils # (Manual) PT INR D-Dimer POC ABG pH POC ABG pCO2 POC ABG pO2 ABG pO2 ABG HCO3 ABG Base Excess ABG Hemoglobin Oxyhemoglobin Sodium Potassium Chloride Carbon Dioxide BUN Creatinine Glucose POC Glucose 191 H 167 H 137 H Calcium Phosphorus Magnesium ALT Alkaline Phosphatase Total Creatine Kinase CK-MB (CK-2) Rel Index Troponin T Albumin LDL Cholesterol Direct PTH Intact Salicylates Acetaminophen Crossmatch 05/04/19 05/04/19 05/04/19 06:44 07:30 07:30 WBC 15.8 H RBC 2.74 L Hgb 6.7 L Hct 22.2 L MCV 81 L MCH 24 L MCHC 30 L RDW 20.4 H Plt Count 450 H Lymph % (Auto) 5.1 L [place] % (Auto) Eos % (Auto) Baso % (Auto) Lymph # 0.8 L [place] # Eos # 0.6 H Baso # Seg Neutrophils % 86.3 H Seg Neuts % (Manual) Lymphocytes % (Manual) Eosinophils % (Manual) Seg Neutrophils # 13.6 H Lymphocytes # (Manual) Eosinophils # (Manual) PT INR D-Dimer POC ABG pH POC ABG pCO2 POC ABG pO2 ABG pO2 ABG HCO3 ABG Base Excess ABG Hemoglobin Oxyhemoglobin Sodium Potassium Chloride 95.2 L Carbon Dioxide BUN 92 H Creatinine 4.8 H Glucose 139 H POC Glucose 153 H Calcium Phosphorus Magnesium ALT Alkaline Phosphatase Total Creatine Kinase CK-MB (CK-2) Rel Index Troponin T Albumin LDL Cholesterol Direct PTH Intact Salicylates Acetaminophen Crossmatch 05/04/19 05/04/19 05/05/19 12:55 16:31 01:02 WBC RBC Hgb Hct MCV MCH MCHC RDW Plt Count Lymph % (Auto) [place] % (Auto) Eos % (Auto) Baso % (Auto) Lymph # [place] # Eos # Baso # Seg Neutrophils % Seg Neuts % (Manual) Lymphocytes % (Manual) Eosinophils % (Manual) Seg Neutrophils # Lymphocytes # (Manual) Eosinophils # (Manual) PT INR D-Dimer POC ABG pH POC ABG pCO2 POC ABG pO2 ABG pO2 ABG HCO3 ABG Base Excess ABG Hemoglobin Oxyhemoglobin Sodium Potassium Chloride Carbon Dioxide BUN Creatinine Glucose POC Glucose 169 H 171 H Calcium Phosphorus Magnesium ALT Alkaline Phosphatase Total Creatine Kinase CK-MB (CK-2) Rel Index Troponin T Albumin LDL Cholesterol Direct PTH Intact Salicylates Acetaminophen Crossmatch See Detail 05/05/19 05/05/19 05/05/19 05:26 05:36 11:48 WBC 12.6 H RBC 2.73 L Hgb 6.9 L Hct 22.3 L MCV 82 L MCH 25 L MCHC 31 L RDW 21.0 H Plt Count Lymph % (Auto) 8.9 L [place] % (Auto) Eos % (Auto) Baso % (Auto) Lymph # 1.1 L [place] # 0.9 H Eos # Baso # Seg Neutrophils % 80.7 H Seg Neuts % (Manual) Lymphocytes % (Manual) Eosinophils % (Manual) Seg Neutrophils # 10.2 H Lymphocytes # (Manual) Eosinophils # (Manual) PT INR D-Dimer POC ABG pH POC ABG pCO2 POC ABG pO2 ABG pO2 ABG HCO3 ABG Base Excess ABG Hemoglobin Oxyhemoglobin Sodium Potassium Chloride Carbon Dioxide BUN Creatinine Glucose POC Glucose 153 H 173 H Calcium Phosphorus Magnesium ALT Alkaline Phosphatase Total Creatine Kinase CK-MB (CK-2) Rel Index Troponin T Albumin LDL Cholesterol Direct PTH Intact Salicylates Acetaminophen Crossmatch 05/05/19 05/06/19 05/06/19 16:42 02:24 06:12 WBC RBC Hgb Hct MCV MCH MCHC RDW Plt Count Lymph % (Auto) [place] % (Auto) Eos % (Auto) Baso % (Auto) Lymph # [place] # Eos # Baso # Seg Neutrophils % Seg Neuts % (Manual) Lymphocytes % (Manual) Eosinophils % (Manual) Seg Neutrophils # Lymphocytes # (Manual) Eosinophils # (Manual) PT INR D-Dimer POC ABG pH POC ABG pCO2 POC ABG pO2 ABG pO2 ABG HCO3 ABG Base Excess ABG Hemoglobin Oxyhemoglobin Sodium Potassium Chloride Carbon Dioxide BUN Creatinine Glucose POC Glucose 126 H 138 H 151 H Calcium Phosphorus Magnesium ALT Alkaline Phosphatase Total Creatine Kinase CK-MB (CK-2) Rel Index Troponin T Albumin LDL Cholesterol Direct PTH Intact Salicylates Acetaminophen Crossmatch 05/06/19 05/06/19 05/06/19 08:15 16:48 23:16 WBC 11.8 H RBC 2.72 L Hgb 6.7 L Hct 21.7 L MCV 80 L MCH 25 L MCHC 31 L RDW 20.9 H Plt Count Lymph % (Auto) [place] % (Auto) Eos % (Auto) Baso % (Auto) Lymph # [place] # Eos # Baso # Seg Neutrophils % Seg Neuts % (Manual) Lymphocytes % (Manual) Eosinophils % (Manual) Seg Neutrophils # Lymphocytes # (Manual) Eosinophils # (Manual) PT INR D-Dimer POC ABG pH POC ABG pCO2 POC ABG pO2 ABG pO2 ABG HCO3 ABG Base Excess ABG Hemoglobin Oxyhemoglobin Sodium Potassium Chloride Carbon Dioxide BUN Creatinine Glucose POC Glucose 153 H 143 H Calcium Phosphorus Magnesium ALT Alkaline Phosphatase Total Creatine Kinase CK-MB (CK-2) Rel Index Troponin T Albumin LDL Cholesterol Direct PTH Intact Salicylates Acetaminophen Crossmatch 05/07/19 05/07/19 05/07/19 06:00 06:30 12:33 WBC RBC 3.53 L Hgb 9.1 L Hct 28.6 L D MCV 81 L MCH 26 L MCHC RDW 19.1 H Plt Count Lymph % (Auto) 9.6 L [place] % (Auto) Eos % (Auto) 4.8 H Baso % (Auto) Lymph # 1.1 L [place] # Eos # 0.5 H Baso # Seg Neutrophils % 77.8 H Seg Neuts % (Manual) Lymphocytes % (Manual) Eosinophils % (Manual) Seg Neutrophils # 8.6 H Lymphocytes # (Manual) Eosinophils # (Manual) PT INR D-Dimer POC ABG pH POC ABG pCO2 POC ABG pO2 ABG pO2 ABG HCO3 ABG Base Excess ABG Hemoglobin Oxyhemoglobin Sodium Potassium Chloride Carbon Dioxide BUN Creatinine Glucose POC Glucose 122 H 140 H Calcium Phosphorus Magnesium ALT Alkaline Phosphatase Total Creatine Kinase CK-MB (CK-2) Rel Index Troponin T Albumin LDL Cholesterol Direct PTH Intact Salicylates Acetaminophen Crossmatch 05/07/19 05/07/19 05/08/19 16:41 23:55 05:10 WBC 11.6 H RBC 3.54 L Hgb 9.1 L Hct 29.1 L MCV 82 L MCH 26 L MCHC 31 L RDW 19.6 H Plt Count Lymph % (Auto) 6.6 L [place] % (Auto) Eos % (Auto) Baso % (Auto) 1.9 H Lymph # 0.8 L [place] # Eos # Baso # 0.2 H Seg Neutrophils % 82.6 H Seg Neuts % (Manual) Lymphocytes % (Manual) Eosinophils % (Manual) Seg Neutrophils # 9.6 H Lymphocytes # (Manual) Eosinophils # (Manual) PT INR D-Dimer POC ABG pH POC ABG pCO2 POC ABG pO2 ABG pO2 ABG HCO3 ABG Base Excess ABG Hemoglobin Oxyhemoglobin Sodium Potassium Chloride Carbon Dioxide BUN Creatinine Glucose POC Glucose 143 H 153 H Calcium Phosphorus Magnesium ALT Alkaline Phosphatase Total Creatine Kinase CK-MB (CK-2) Rel Index Troponin T Albumin LDL Cholesterol Direct PTH Intact Salicylates Acetaminophen Crossmatch 05/08/19 05/08/19 05/09/19 06:09 16:55 03:27 WBC RBC Hgb Hct MCV MCH MCHC RDW Plt Count Lymph % (Auto) [place] % (Auto) Eos % (Auto) Baso % (Auto) Lymph # [place] # Eos # Baso # Seg Neutrophils % Seg Neuts % (Manual) Lymphocytes % (Manual) Eosinophils % (Manual) Seg Neutrophils # Lymphocytes # (Manual) Eosinophils # (Manual) PT INR D-Dimer POC ABG pH POC ABG pCO2 POC ABG pO2 ABG pO2 ABG HCO3 ABG Base Excess ABG Hemoglobin Oxyhemoglobin Sodium Potassium Chloride Carbon Dioxide BUN Creatinine Glucose POC Glucose 204 H 196 H 175 H Calcium Phosphorus Magnesium ALT Alkaline Phosphatase Total Creatine Kinase CK-MB (CK-2) Rel Index Troponin T Albumin LDL Cholesterol Direct PTH Intact Salicylates Acetaminophen Crossmatch 05/09/19 05/09/19 05/09/19 06:00 11:00 12:41 WBC 12.0 H RBC Hgb 9.7 L Hct 30.2 L MCV 83 L MCH 26 L MCHC RDW 20.1 H Plt Count Lymph % (Auto) 7.4 L [place] % (Auto) 7.6 H Eos % (Auto) Baso % (Auto) Lymph # 0.9 L [place] # 0.9 H Eos # Baso # Seg Neutrophils % 80.7 H Seg Neuts % (Manual) Lymphocytes % (Manual) Eosinophils % (Manual) Seg Neutrophils # 9.7 H Lymphocytes # (Manual) Eosinophils # (Manual) PT INR D-Dimer POC ABG pH POC ABG pCO2 POC ABG pO2 ABG pO2 ABG HCO3 ABG Base Excess ABG Hemoglobin Oxyhemoglobin Sodium Potassium Chloride Carbon Dioxide BUN Creatinine Glucose POC Glucose 172 H 168 H Calcium Phosphorus Magnesium ALT Alkaline Phosphatase Total Creatine Kinase CK-MB (CK-2) Rel Index Troponin T Albumin LDL Cholesterol Direct PTH Intact Salicylates Acetaminophen Crossmatch 05/09/19 05/10/19 05/10/19 17:45 01:26 06:07 WBC RBC Hgb Hct MCV MCH MCHC RDW Plt Count Lymph % (Auto) [place] % (Auto) Eos % (Auto) Baso % (Auto) Lymph # [place] # Eos # Baso # Seg Neutrophils % Seg Neuts % (Manual) Lymphocytes % (Manual) Eosinophils % (Manual) Seg Neutrophils # Lymphocytes # (Manual) Eosinophils # (Manual) PT INR D-Dimer POC ABG pH POC ABG pCO2 POC ABG pO2 ABG pO2 ABG HCO3 ABG Base Excess ABG Hemoglobin Oxyhemoglobin Sodium Potassium Chloride Carbon Dioxide BUN Creatinine Glucose POC Glucose 167 H 174 H 179 H Calcium Phosphorus Magnesium ALT Alkaline Phosphatase Total Creatine Kinase CK-MB (CK-2) Rel Index Troponin T Albumin LDL Cholesterol Direct PTH Intact Salicylates Acetaminophen Crossmatch 05/10/19 05/10/19 05/10/19 06:45 12:31 17:18 WBC RBC Hgb Hct MCV MCH MCHC RDW Plt Count Lymph % (Auto) [place] % (Auto) Eos % (Auto) Baso % (Auto) Lymph # [place] # Eos # Baso # Seg Neutrophils % Seg Neuts % (Manual) Lymphocytes % (Manual) Eosinophils % (Manual) Seg Neutrophils # Lymphocytes # (Manual) Eosinophils # (Manual) PT INR D-Dimer POC ABG pH POC ABG pCO2 POC ABG pO2 ABG pO2 ABG HCO3 ABG Base Excess ABG Hemoglobin Oxyhemoglobin Sodium 134 L Potassium Chloride 90.2 L Carbon Dioxide BUN 82 H Creatinine 4.1 H Glucose 195 H POC Glucose 201 H 197 H Calcium Phosphorus Magnesium ALT Alkaline Phosphatase Total Creatine Kinase CK-MB (CK-2) Rel Index Troponin T Albumin LDL Cholesterol Direct PTH Intact Salicylates Acetaminophen Crossmatch 05/11/19 05/11/19 05/11/19 00:20 06:30 17:38 WBC RBC Hgb Hct MCV MCH MCHC RDW Plt Count Lymph % (Auto) [place] % (Auto) Eos % (Auto) Baso % (Auto) Lymph # [place] # Eos # Baso # Seg Neutrophils % Seg Neuts % (Manual) Lymphocytes % (Manual) Eosinophils % (Manual) Seg Neutrophils # Lymphocytes # (Manual) Eosinophils # (Manual) PT INR D-Dimer POC ABG pH POC ABG pCO2 POC ABG pO2 ABG pO2 ABG HCO3 ABG Base Excess ABG Hemoglobin Oxyhemoglobin Sodium Potassium Chloride Carbon Dioxide BUN Creatinine Glucose POC Glucose 131 H 148 H 198 H Calcium Phosphorus Magnesium ALT Alkaline Phosphatase Total Creatine Kinase CK-MB (CK-2) Rel Index Troponin T Albumin LDL Cholesterol Direct PTH Intact Salicylates Acetaminophen Crossmatch 05/12/19 05/12/19 05/12/19 00:44 06:13 07:15 WBC RBC 3.32 L Hgb 8.7 L Hct 27.8 L MCV MCH 26 L MCHC 31 L RDW 19.8 H Plt Count Lymph % (Auto) 6.9 L [place] % (Auto) Eos % (Auto) 6.5 H Baso % (Auto) Lymph # 0.7 L [place] # Eos # 0.6 H Baso # Seg Neutrophils % 78.6 H Seg Neuts % (Manual) Lymphocytes % (Manual) Eosinophils % (Manual) Seg Neutrophils # 7.8 H Lymphocytes # (Manual) Eosinophils # (Manual) PT INR D-Dimer POC ABG pH POC ABG pCO2 POC ABG pO2 ABG pO2 ABG HCO3 ABG Base Excess ABG Hemoglobin Oxyhemoglobin Sodium Potassium Chloride Carbon Dioxide BUN Creatinine Glucose POC Glucose 170 H 133 H Calcium Phosphorus Magnesium ALT Alkaline Phosphatase Total Creatine Kinase CK-MB (CK-2) Rel Index Troponin T Albumin LDL Cholesterol Direct PTH Intact Salicylates Acetaminophen Crossmatch 05/12/19 05/12/19 05/12/19 07:15 11:17 17:37 WBC RBC Hgb Hct MCV MCH MCHC RDW Plt Count Lymph % (Auto) [place] % (Auto) Eos % (Auto) Baso % (Auto) Lymph # [place] # Eos # Baso # Seg Neutrophils % Seg Neuts % (Manual) Lymphocytes % (Manual) Eosinophils % (Manual) Seg Neutrophils # Lymphocytes # (Manual) Eosinophils # (Manual) PT INR D-Dimer POC ABG pH POC ABG pCO2 POC ABG pO2 ABG pO2 ABG HCO3 ABG Base Excess ABG Hemoglobin Oxyhemoglobin Sodium 135 L Potassium Chloride 94.2 L Carbon Dioxide BUN 59 H Creatinine 3.4 H Glucose 134 H POC Glucose 132 H 165 H Calcium Phosphorus Magnesium ALT Alkaline Phosphatase Total Creatine Kinase CK-MB (CK-2) Rel Index Troponin T Albumin LDL Cholesterol Direct PTH Intact Salicylates Acetaminophen Crossmatch 05/13/19 05/13/19 00:15 05:44 WBC RBC Hgb Hct MCV MCH MCHC RDW Plt Count Lymph % (Auto) [place] % (Auto) Eos % (Auto) Baso % (Auto) Lymph # [place] # Eos # Baso # Seg Neutrophils % Seg Neuts % (Manual) Lymphocytes % (Manual) Eosinophils % (Manual) Seg Neutrophils # Lymphocytes # (Manual) Eosinophils # (Manual) PT INR D-Dimer POC ABG pH POC ABG pCO2 POC ABG pO2 ABG pO2 ABG HCO3 ABG Base Excess ABG Hemoglobin Oxyhemoglobin Sodium Potassium Chloride Carbon Dioxide BUN Creatinine Glucose POC Glucose 144 H 133 H Calcium Phosphorus Magnesium ALT Alkaline Phosphatase Total Creatine Kinase CK-MB (CK-2) Rel Index Troponin T Albumin LDL Cholesterol Direct PTH Intact Salicylates Acetaminophen Crossmatch
[2019-05-13] MEDS ORDERED: SODIUM CHLORIDE*PRIMING MACHINE ONLY FOR DIALYSIS MC ONE (13:34)
[2019-05-13] MEDS: EPOETIN ALFA 20,000 UNIT/1 ML INJ IV PRN (14:37)
--- NOTE | 2019-05-13 14:37 | Progress Note ---
Assessment and Plan - Patient Problems (1) ESRD (end stage renal disease) on dialysis Current Visit: Yes Status: Chronic Plan to address problem: End stage renal disease : - access: Left arm AVG Continue hemodialysis Saturday (2) Diabetes mellitus, insulin dependent (IDDM), uncontrolled Current Visit: No Status: Acute Qualifiers: Glycemic state: with hyperglycemia Qualified Code(s): E10.65 - Type 1 diab etes mellitus with hyperglycemia Plan to address problem: DM type II uncontrolled Monitor Fingersticks (3) Anemia in chronic kidney disease, on chronic dialysis Current Visit: Yes Status: Acute Plan to address problem: Anemia of chronic kidney disease hemoglobin 8.8g/dl We'll give Epogen Monitor CBC (4) Hypertension Current Visit: Yes Status: Acute Qualifiers: Hypertension type: essential hypertension Qualified Code(s): I10 - Essential (primary) hypertension Plan to address problem: Hypertension controlled currently on Prn antihypertensives. Monitor blood pressure (5) Acute hypoxemic respiratory failure Current Visit: Yes Status: Acute Plan to address problem: Patient has tracheostomy with Tpiece in place. Chest x-ray reviewed with patchy opacities upper lung lynn Cultures obtained with Acinetobacter completed treatment with antibiotics. Ultrafiltration limited by hypotension repeat CXR with improvement in lung aeration. Subjective Principal diagnosis: Respiratory failure, acute on chronic systolic HF, ESRD Interval history: 63 year old Gentleman with medical history significant for ESRD on hemodialysis at [facility] on Saturday, Saturday and Saturday. via a left arm AVG admitted with acute respiratory failure; and hypotension prolonged hospital course received antibiotics for acinetobacter infection and s/p prolonged need for ventilation requiring Tracheostomy with T piece , now Tracheostomy has been capped. Patient seen today has tracheostomy now capped I attest I saw the patient on dialysis. no lower extremity edema. continue HD MWF appears confused Objective - Vital Signs Vital signs: Vital Signs - 12hr 05/13/19 05/13/19 05/13/19 03:58 04:11 07:24 Temperature 98.0 F 98.1 F Pulse Rate 94 H Pulse Rate [ Anterior Bilateral Throughout] Pulse Rate [ From Monitor] Respiratory 18 18 Rate Respiratory Rate [Anterior Bilateral Throughout] Blood Pressure 123/57 143/72 O2 Sat by Pulse 91 Oximetry O2 Sat by Pulse 99 Oximetry [ Assessment] 05/13/19 05/13/19 05/13/19 08:31 08:32 10:00 Temperature Pulse Rate 112 H Pulse Rate [ 108 H Anterior Bilateral Throughout] Pulse Rate [ 102 H From Monitor] Respiratory Rate Respiratory 22 Rate [Anterior Bilateral Throughout] Blood Pressure O2 Sat by Pulse 99 Oximetry O2 Sat by Pulse Oximetry [ Assessment] - General Appearance General appearance: well-developed, well-nourished EENT: ATNC, PERRL, mucous membranes moist Neck: no JVD Respiratory: Present: Clear to Ascultation Cardiology: regular, S1S2 Gastrointestinal: normal, normoactive bowel sounds Neurologic: alert and oriented x3, CN 3-12 intact Psychiatric: mood/affect appropriate - Lab 05/12/19 07:15 05/12/19 07:15 Most recent lab results ABG pH 7.424 pH Units (7.350-7.450) 03/19/19 04:23 ABG pCO2 48.0 mm Hg 03/19/19 04:23 ABG pO2 78.3 mm Hg (80.0-90.0) L 03/19/19 04:23 ABG HCO3 30.7 mmol/L (20.0-26.0) H 03/19/19 04:23 ABG O2 Saturation 97.0 % (95.0-99.0) 03/19/19 04:23 Calcium 9.5 mg/dL (8.4-10.2) 05/12/19 07:15 Phosphorus 4.30 mg/dL (2.5-4.5) D 03/31/19 10:26 Magnesium 2.70 mg/dL (1.7-2.3) H 03/30/19 10:13 - Imaging Chest x-ray: image reviewed (I reviewed CXR with improvement in pulmonary edema. ) Medications & Allergies - Medications Allergies/Adverse Reactions: Allergies haloperidol [From Haldol] Adverse Reaction (Verified 03/13/18 12:10) Unknown haloperidol lactate [From Haldol] Adverse Reaction (Verified 03/13/18 12:10) Unknown Home Medications: Home Medications Medication Instructions Recorded Confirmed Last Taken Type risperiDONE [RisperDAL] 1 mg PO QAM 03/13/18 02/21/19 Unknown History Sertraline [Zoloft] 100 mg PO QDAY 08/26/18 02/21/19 Unknown History Polyethylene Glycol 3350 [Miralax 17 gm PO QDAY #30 packet 11/05/18 02/21/19 Unknown Rx 3350] Aspirin EC [Halfprin EC] 81 mg PO DAILY #30 11/19/18 02/21/19 Unknown Rx Docusate Sodium [Colace CAP] 100 mg PO BID #60 11/19/18 02/21/19 Unknown Rx Folic Acid [Folvite] 1 mg PO DAILY #30 tab 11/19/18 02/21/19 Unknown Rx Famotidine [Pepcid] 20 mg PO DAILY tablet 12/08/18 02/21/19 Unknown Rx Gabapentin [Neurontin] 100 mg PO QHS capsule 12/08/18 02/21/19 Unknown Rx Metoprolol [Lopressor TAB] 50 mg PO BID 30 Days tablet 12/08/18 02/21/19 Unknown Rx Sevelamer Carbonate [Renvela] 800 mg PO TIDWM tablet 12/08/18 02/21/19 Unknown Rx hydrALAZINE [Apresoline TAB] 100 mg PO Q8HR #120 tablet 12/08/18 02/21/19 Unknown Rx Acetaminophen [Acetaminophen TAB] 650 mg PO Q12H PRN 12/15/18 02/21/19 Unknown History Glucagon,Human Recombinant 1 mg IJ Q15MIN PRN 12/15/18 02/21/19 Unknown History [Glucagon Emergency Kit] Insulin Aspart [NovoLOG 100 See Protocol SQ QWEEK 12/15/18 02/21/19 Unknown History UNITS/ML VIAL] Active Medications: Generic Name Dose Route Start Last Admin Trade Name Freq PRN Reason Stop Dose Admin Albuterol/Ipratropium 1 ampul 02/24/19 20:00 05/13/19 08:06 Duoneb *Not For Prn Use* IH 1 ampul TIDRT SANCHEZ Administration Lipase/Protease/Amylase 1 each 04/10/19 15:16 Pancreaze 10,500 Unit FEEDTUBE PRN PRN For Clogged Feeding Tube Epoetin Solitario 20,000 unit 03/24/19 11:17 05/11/19 12:48 Procrit IV 20,000 unit UMA PRN Administration hemodialysis Famotidine 20 mg 02/23/19 10:00 05/13/19 09:44 Pepcid PO 20 mg DAILY SANCHEZ Administration Sodium Chloride 100 mls @ 999 mls/hr 05/13/19 12:45 Nacl 0.9% IV UMA PRN Hypotension Insulin Human Regular 0 units 02/26/19 12:00 05/13/19 11:59 Humulin R SUB-Q Not Given Q6HR SANCHEZ Protocol Metoprolol Tartrate 2.5 mg 02/28/19 12:06 03/15/19 05:15 Lopressor IV 2.5 mg Q4HR PRN Administration Tachycardia Risperidone 1 mg 02/25/19 13:00 05/13/19 09:44 Risperdal PO 1 mg DAILY SANCHEZ Administration Sertraline HCl 100 mg 02/25/19 13:00 05/13/19 09:44 Zoloft PO 100 mg DAILY SANCHEZ Administration Simple Syrup 15 ml 04/10/19 15:16 Simple Syrup FEEDTUBE PRN PRN Hypoglycemia Simple Syrup 30 ml 04/10/19 15:16 Simple Syrup FEEDTUBE PRN PRN Hypoglycemia Sodium Bicarbonate 325 mg 04/10/19 15:16 Sodium Bicarbonate FEEDTUBE PRN PRN For Clogged Feeding Tube Sodium Hypochlorite 1 applic 04/01/19 13:00 05/13/19 09:44 Dakin's Half Strength TP 1 applicatio BID SANCHEZ Administration
--- NOTE | 2019-05-13 15:52 | Progress Note ---
Assessment and Plan Assessment and plan: Patient is a 63-year-old -[place] man from [facility] with a plethora of co-morbidities including blindness, CVA, CHF, PPM/ICD, loop recorder since 2012 that is MRI compatible, IDDM type 2, sepsis left foot ulcer, afib, ESRD with complications on HD TTS, hypertension, AOCD and GERD who presented to the ED with hypotensive after intubation in the emergency room. Still intubated, diagnosed with fluid overload, pleural effusion. Patient has had recurrent admission in the hospital for similar reason and was recently discharged from the hospital following treatment of Severe Sepsis due to Necrotizing Unstagable sacral decubitus ulcer with ostemomylitis, expected to complete abx on discharg e till 02/16/19. Trach and peg done HR control improved with change in BB. Acute respiratory failure on mechanical ventilator >96 hrs Trach placed on 03/03/19 Pulm consult appreciated weaning trial VAP BUNDLE ASPIRATION BUNDLE Continue T-piece Finished therapy for Acinetobacter Acute pulmonary edema, fluid overload on CXR repeat xray intermittently Dialysis Necrotizing Unstagable sacral decubitus ulcer with ostemomyelitis Wound care, Dilated CMP Cardiomyiopathy EF 35-40% Continue diuresis PPM/ICD Acute encephalopathy, probably metabolic or toxic Continues on Mechanical ventilator. ESRD on hemodialysis nephrology following Vascular eval. done re: LUE AV graft, see note Bilateral pleural effusions Anticipate improvement with Permanent atrial fibrillation and flutter Not on anticoagulation because of anemia thrombocytopenia Change noted to BB agent to IV. Diabetes mellitus type 2 Fingerstick Q4h NSTEMI type 2 Cardiology following Schizophrenia continue home meds Legally blind supportive care hypertension Monitor BP Hypokalemia resolved Pulmonary hypertension by history Dysphagia s/p PEG tube Severe malnutrition/hypoalbuminemia with FTT: 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, fancy packer following PEG placed on 01/02/19 Decubitus ulcer s/;p colostomy wound care consult History of sacral osteomyelitis and LE ulcers Completed Antibiotics Place on contact isolation for ESBL Klebsiella pneumonia on wound culture 01/02/19 h/o Peripheral neuropathy: Continue gabapentin Anemia of chronic disease -s/p total of 8 units PRBC, follow cbc- no occult GI bleed noted. -Pt is s/p x1 DDVAP RUL atelectasis, nebs as needed DVT prophylaxis Lovenox DNR poor prognosis Disposition: Awaiting on HD setup History Interval history: Patient was seen and examined. Follow-up on current diagnosis. No overnight events reported to me. Patient is mainly nonverbal. Imaging, nursing note, chart, labs and old chart reviewed. Hospitalist Physical - Physical exam Narrative exam: Gen: severely disable, nad, awake alert x 1 HEENT: NCAT, EOMI, PERRL, OP Clear Neck: supple, trach CVS/Heart: irreg irregular, normal S1S2, pulses present bilaterally Chest/Lungs: diminished bs ymmetrical chest expansion, good air entry bilaterally GI/Abdomen:peg, colostomy present, good bowel sounds, no guarding or rebound /Bladder: no suprapubic tenderness, no CVA or paraspinal tenderness Extermity/Skin: no c/c/e, no obvious rash MSK: no FROM x 4 Neuro: CN 2-12 grossly intact except vision, no new focal deficits Psych: calm - Constitutional Vitals: Temp Pulse Resp BP Pulse Ox 98.1 F 102 H 22 143/72 99 05/13/19 07:24 05/13/19 10:00 05/13/19 08:31 05/13/19 07:24 05/13/19 08:32 General appearance: Present: no acute distress, well-nourished, other (T peace) Results - Labs CBC & Chem 7: 05/12/19 07:15 05/12/19 07:15 Labs: Laboratory Last Values WBC 9.9 K/mm3 (4.5-11.0) 05/12/19 07:15 RBC 3.32 M/mm3 (3.65-5.03) L 05/12/19 07:15 Hgb 8.7 gm/dl (11.8-15.2) L 05/12/19 07:15 Hct 27.8 % (35.5-45.6) L 05/12/19 07:15 MCV 84 fl (84-94) 05/12/19 07:15 MCH 26 pg (28-32) L 05/12/19 07:15 MCHC 31 % (32-34) L 05/12/19 07:15 RDW 19.8 % (13.2-15.2) H 05/12/19 07:15 Plt Count 325 K/mm3 (140-440) 05/12/19 07:15 Lymph % (Auto) 6.9 % (13.4-35.0) L 05/12/19 07:15 Lamb % (Auto) 7.3 % (0.0-7.3) 05/12/19 07:15 Eos % (Auto) 6.5 % (0.0-4.3) H 05/12/19 07:15 Baso % (Auto) 0.7 % (0.0-1.8) 05/12/19 07:15 Lymph # 0.7 K/mm3 (1.2-5.4) L 05/12/19 07:15 Lamb # 0.7 K/mm3 (0.0-0.8) 05/12/19 07:15 Eos # 0.6 K/mm3 (0.0-0.4) H 05/12/19 07:15 Baso # 0.1 K/mm3 (0.0-0.1) 05/12/19 07:15 Add Manual Diff Complete 03/21/19 06:30 Total Counted 100 03/21/19 06:30 Seg Neutrophils % 78.6 % (40.0-70.0) H 05/12/19 07:15 Seg Neuts % (Manual) 81.0 % (40.0-70.0) H 03/21/19 06:30 Band Neutrophils % 0 % 03/21/19 06:30 Lymphocytes % (Manual) 8.0 % (13.4-35.0) L 03/21/19 06:30 Reactive Lymphs % (Man) 0 % 03/21/19 06:30 Monocytes % (Manual) 1.0 % (0.0-7.3) 03/21/19 06:30 Eosinophils % (Manual) 8.0 % (0.0-4.3) H 03/21/19 06:30 Basophils % (Manual) 1.0 % (0.0-1.8) 03/21/19 06:30 Metamyelocytes % 1.0 % 03/21/19 06:30 Myelocytes % 0 % 03/21/19 06:30 Promyelocytes % 0 % 03/21/19 06:30 Blast Cells % 0 % 03/21/19 06:30 Nucleated RBC % Not Reportable 03/21/19 06:30 Seg Neutrophils # 7.8 K/mm3 (1.8-7.7) H 05/12/19 07:15 Seg Neutrophils # Man 6.7 K/mm3 (1.8-7.7) 03/21/19 06:30 Band Neutrophils # 0.0 K/mm3 03/21/19 06:30 Lymphocytes # (Manual) 0.7 K/mm3 (1.2-5.4) L 03/21/19 06:30 Abs React Lymphs (Man) 0.0 K/mm3 03/21/19 06:30 Monocytes # (Manual) 0.1 K/mm3 (0.0-0.8) 03/21/19 06:30 Eosinophils # (Manual) 0.7 K/mm3 (0.0-0.4) H 03/21/19 06:30 Basophils # (Manual) 0.1 K/mm3 (0.0-0.1) 03/21/19 06:30 Metamyelocytes # 0.1 K/mm3 03/21/19 06:30 Myelocytes # 0.0 K/mm3 03/21/19 06:30 Promyelocytes # 0.0 K/mm3 03/21/19 06:30 Blast Cells # 0.0 K/mm3 03/21/19 06:30 WBC Morphology Not Reportable 03/21/19 06:30 Hypersegmented Neuts Not Reportable 03/21/19 06:30 Hyposegmented Neuts Not Reportable 03/21/19 06:30 Hypogranular Neuts Not Reportable 03/21/19 06:30 Smudge Cells Not Reportable 03/21/19 06:30 Toxic Granulation Not Reportable 03/21/19 06:30 Toxic Vacuolation Not Reportable 03/21/19 06:30 Dohle Bodies Not Reportable 03/21/19 06:30 Pelger-Huet Anomaly Not Reportable 03/21/19 06:30 Tramaine Rods Not Reportable 03/21/19 06:30 Platelet Estimate Consistent w auto 03/21/19 06:30 Clumped Platelets Not Reportable 03/21/19 06:30 Plt Clumps, EDTA Not Reportable 03/21/19 06:30 Large Platelets Not Reportable 03/21/19 06:30 Giant Platelets Not Reportable 03/21/19 06:30 Platelet Satelliting Not Reportable 03/21/19 06:30 Plt Morphology Comment Not Reportable 03/21/19 06:30 RBC Morphology Not Reportable 03/21/19 06:30 Dimorphic RBCs Not Reportable 03/21/19 06:30 Polychromasia Not Reportable 03/21/19 06:30 Hypochromasia Few 03/21/19 06:30 Poikilocytosis Few 03/21/19 06:30 Anisocytosis Few 03/21/19 06:30 Microcytosis Not Reportable 03/21/19 06:30 Macrocytosis Not Reportable 03/21/19 06:30 Spherocytes Not Reportable 03/21/19 06:30 Pappenheimer Bodies Not Reportable 03/21/19 06:30 Sickle Cells Not Reportable 03/21/19 06:30 Target Cells 1+ 03/21/19 06:30 Tear Drop Cells Not Reportable 03/21/19 06:30 Ovalocytes Few 03/21/19 06:30 Helmet Cells Not Reportable 03/21/19 06:30 Zhou-Solis Bodies Not Reportable 03/21/19 06:30 [place] Rings Not Reportable 03/21/19 06:30 Hbeert Cells Not Reportable 03/21/19 06:30 Bite Cells Not Reportable 03/21/19 06:30 Crenated Cell Not Reportable 03/21/19 06:30 Elliptocytes Not Reportable 03/21/19 06:30 Acanthocytes (Spur) Not Reportable 03/21/19 06:30 Rouleaux Not Reportable 03/21/19 06:30 Hemoglobin C Crystals Not Reportable 03/21/19 06:30 Schistocytes Not Reportable 03/21/19 06:30 Malaria parasites Not Reportable 03/21/19 06:30 Jose Juan Bodies Not Reportable 03/21/19 06:30 Hem Pathologist Commnt No 03/21/19 06:30 PT 16.3 Sec. (12.2-14.9) H 03/01/19 09:39 INR 1.35 (0.87-1.13) H 03/01/19 09:39 APTT 33.7 Sec. (24.2-36.6) 02/21/19 18:30 D-Dimer 2987.82 ng/mlDDU (0-234) H 02/22/19 05:54 POC ABG pH 7.510 (7.35-7.45) H 03/18/19 06:38 ABG pH 7.424 pH Units (7.350-7.450) 03/19/19 04:23 POC ABG pCO2 38.9 (35-45) 03/18/19 06:38 ABG pCO2 48.0 mm Hg 03/19/19 04:23 POC ABG pO2 164 (80-105) H 03/18/19 06:38 ABG pO2 78.3 mm Hg (80.0-90.0) L 03/19/19 04:23 POC ABG HCO3 31.0 (22-26 mml/L) 03/18/19 06:38 ABG HCO3 30.7 mmol/L (20.0-26.0) H 03/19/19 04:23 POC ABG Total CO2 32 (23-27mmol/L) 03/18/19 06:38 POC ABG O2 Sat 100 03/18/19 06:38 ABG O2 Saturation 97.0 % (95.0-99.0) 03/19/19 04:23 ABG O2 Content 7.9 (0.0-44) 03/19/19 04:23 POC ABG Base Excess 8 ((-2) - (+3)mmol/L) 03/18/19 06:38 ABG Base Excess 5.8 mmol/L (-2.0-3.0) H 03/19/19 04:23 ABG Hemoglobin 5.8 gm/dl (14.0-18.0) L 03/19/19 04:23 ABG Carboxyhemoglobin 2.0 % (0.0-5.0) 03/19/19 04:23 ABG Methemoglobin 0.4 % (0.0-1.5) 03/19/19 04:23 Oxyhemoglobin 94.6 % (95.0-99.0) L 03/19/19 04:23 FiO2 35 % 03/19/19 04:23 Sodium 135 mmol/L (137-145) L 05/12/19 07:15 Potassium 3.7 mmol/L (3.6-5.0) 05/12/19 07:15 Chloride 94.2 mmol/L (98-107) L 05/12/19 07:15 Carbon Dioxide 26 mmol/L (22-30) 05/12/19 07:15 Anion Gap 19 mmol/L 05/12/19 07:15 BUN 59 mg/dL (9-20) H 05/12/19 07:15 Creatinine 3.4 mg/dL (0.8-1.5) H 05/12/19 07:15 Estimated GFR 22 ml/min 05/12/19 07:15 BUN/Creatinine Ratio 17 % 05/12/19 07:15 Glucose 134 mg/dL (75-100) H 05/12/19 07:15 POC Glucose 133 (70-105) H 05/13/19 05:44 Lactic Acid 1.00 mmol/L (0.7-2.0) 02/21/19 20:58 Calcium 9.5 mg/dL (8.4-10.2) 05/12/19 07:15 Phosphorus 4.30 mg/dL (2.5-4.5) D 03/31/19 10:26 Magnesium 2.70 mg/dL (1.7-2.3) H 03/30/19 10:13 Total Bilirubin 0.20 mg/dL (0.1-1.2) 03/30/19 10:13 AST 16 units/L (5-40) 03/30/19 10:13 ALT 11 units/L (7-56) 03/30/19 10:13 Alkaline Phosphatase 185 units/L (35-129) H 03/30/19 10:13 Ammonia 28.0 umol/L (25-60) 02/21/19 20:04 Total Creatine Kinase 64 units/L (55-170) 02/22/19 03:42 CK-MB (CK-2) 3.7 ng/mL (0.0-4.0) 02/22/19 03:42 CK-MB (CK-2) Rel Index 5.7 (0-4) H 02/22/19 03:42 Troponin T 0.193 ng/mL (0.00-0.029) H* 02/22/19 03:42 Total Protein 6.9 g/dL (6.3-8.2) 03/30/19 10:13 Albumin 2.6 g/dL (3.9-5) L 03/30/19 10:13 Albumin/Globulin Ratio 0.6 % 03/30/19 10:13 Triglycerides 51 mg/dL (2-149) 02/21/19 18:30 Cholesterol 82 mg/dL (50-199) 02/21/19 18:30 LDL Cholesterol Direct 36 mg/dL (50-130) L 02/21/19 18:30 HDL Cholesterol 40 mg/dL (40-59) 02/21/19 18:30 Cholesterol/HDL Ratio 2.05 % 02/21/19 18:30 TSH 2.760 mlU/mL (0.270-4.200) 02/21/19 20:04 PTH Intact 267.6 pg/mL (15-65) H 03/02/19 05:15 Salicylates < 0.3 mg/dL (2.8-20.0) L 02/21/19 20:04 Acetaminophen < 5.0 ug/mL (10.0-30.0) L 02/21/19 20:04 Hepatitis A IgM Ab Non-reactive (NonReactive) 04/30/19 14:11 Hep Bs Antigen Non-reactive (Negative) 04/30/19 14:11 Hep B Core IgM Ab Non-reactive (NonReactive) 04/30/19 14:11 Hepatitis C Antibody Non-reactive (NonReactive) 04/30/19 14:11 Blood Type O POSITIVE 05/04/19 12:55 Antibody Screen Negative 05/04/19 12:55 Crossmatch See Detail 05/04/19 12:55 Active Medications - Current Medications Current Medications: Generic Name Dose Route Start Last Admin Trade Name Freq PRN Reason Stop Dose Admin Albuterol/Ipratropium 1 ampul 02/24/19 20:00 05/13/19 14:50 Duoneb *Not For Prn Use* IH Not Given TIDRT SANCHEZ Lipase/Protease/Amylase 1 each 04/10/19 15:[address] 10,500 Unit FEEDTUBE PRN PRN For Clogged Feeding Tube Epoetin Solitario 20,000 unit 03/24/19 11:17 05/13/19 14:37 Procrit IV 20,000 unit UMA PRN Administration hemodialysis Famotidine 20 mg 02/23/19 10:00 05/13/19 09:44 Pepcid PO 20 mg DAILY SANCHEZ Administration Sodium Chloride 100 mls @ 999 mls/hr 05/13/19 12:45 Nacl 0.9% IV UMA PRN Hypotension Insulin Human Regular 0 units 02/26/19 12:00 05/13/19 11:59 Humulin R SUB-Q Not Given Q6HR [facility] Protocol Metoprolol Tartrate 2.5 mg 02/28/19 12:06 03/15/19 05:15 Lopressor IV 2.5 mg Q4HR PRN Administration Tachycardia Risperidone 1 mg 02/25/19 13:00 05/13/19 09:44 Risperdal PO 1 mg DAILY SANCHEZ Administration Sertraline HCl 100 mg 02/25/19 13:00 05/13/19 09:44 Zoloft PO 100 mg DAILY SANCHEZ Administration Simple Syrup 15 ml 04/10/19 15:16 Simple Syrup FEEDTUBE PRN PRN Hypoglycemia Simple Syrup 30 ml 04/10/19 15:16 Simple Syrup FEEDTUBE PRN PRN Hypoglycemia Sodium Bicarbonate 325 mg 04/10/19 15:16 Sodium Bicarbonate FEEDTUBE PRN PRN For Clogged Feeding Tube Sodium Hypochlorite 1 applic 04/01/19 13:00 05/13/19 09:44 Dakin's Half Strength TP 1 applicatio BID SANCHEZ Administration Nutrition/Malnutrition Assess - Dietary Evaluation Nutrition/Malnutrition Findings: Nutrition Notes Start: 02/22/19 12:51 Freq: Status: Active Protocol: Document 05/08/19 15:04 RM (Rec: 05/08/19 15:15 RM [id number]) Nutrition Notes Initial or Follow up Reassessment Current Diagnosis Diabetes,Hypertension,Heart Failure Other Pertinent Diagnosis Sacral PU, ESRD on HD (T/Thurs /Sat), Schizophrenia,Blind in L eye,S/P trach Current Diet Nepro at 50 ml/hr w/Abhilash BID Labs/Tests POC 143, 153, 204 Pertinent Medications Reviewed Height 5 ft 10 in Weight 68.1 kg [place] Body Weight (kg) 75.45 BMI 21.5 Weight change and time frame Wt loss noted. Likely d/t fluid change. Subjective/Other Information Observed Nepro infusing at goal rate. Per nurse pt is tolerating TF and receiving Abhilash. Percent of energy/protein needs met: 100%/100% Burn Absent Trauma Absent Minimum of two criteria No #2 Nutrition Diagnosis Increased nutrient needs ( specify in comment below) Diagnosis Progress(for reassessment Continues documentation) #1 Nutrition Diagnosis Inadequate oral intake Diagnosis Progress(for reassessment Continues documentation) Is patient on ventilator? No Is Patient Ambulatory and/or Out of Bed No REE-([facility]-confined to bed) 1778.028 Kcal/Kg value to use for calculation 31 Approximate Energy Requirements Using 2111 kcal/Kg Calculation Used for Recommendations [facility] Additional Notes Protein Needs:90 - 112 g (1.2- 1.5 g/kg) Fluid Needs: 1-1.5 L/day Nutrition Intervention Change Diet Order: Continue TF Nutrition Support: Nepro with Carbsteady 1.8 at 50 ml/hr Flush 200 ml q4hr Kcal 2,160 Protein (gm) 97 Fluid (mL) 872 Add Supplement/Snack (indicate name/kcal Abhilash BID /protein ) Provides kCal: 190 Provides Protein (gm) 5 Goal #1 TF tolerance Goal #2 Continue to meet at least 75% of calorie and protein needs via TF Anticipated Discharge Needs: TF Follow-Up By: 05/15/19 Additional Comments Follow for TF tolerance
[2019-05-14] MEDS: INSULIN REGULAR, HUMAN 100 UNITS/1 ML SUB-Q SCH ×2 (06:36)
[2019-05-14] MEDS: IPRATROPIUM/ALBUTEROL SULFATE 3 ML AMPUL.NEB IH SCH ×3 (08:43→21:28)
--- NOTE | 2019-05-14 09:58 | Progress Note ---
Assessment and Plan - Patient Problems (1) ESRD (end stage renal disease) on dialysis Current Visit: Yes Status: Chronic Plan to address problem: End stage renal disease : - access: Left arm AVG Continue hemodialysis Saturday (2) Diabetes mellitus, insulin dependent (IDDM), uncontrolled Current Visit: No Status: Acute Qualifiers: Glycemic state: with hyperglycemia Qualified Code(s): E10.65 - Type 1 diab etes mellitus with hyperglycemia Plan to address problem: DM type II uncontrolled Monitor Fingersticks (3) Anemia in chronic kidney disease, on chronic dialysis Current Visit: Yes Status: Acute Plan to address problem: Anemia of chronic kidney disease hemoglobin 8.8g/dl We'll give Epogen Monitor CBC (4) Hypertension Current Visit: Yes Status: Acute Qualifiers: Hypertension type: essential hypertension Qualified Code(s): I10 - Essential (primary) hypertension Plan to address problem: Hypertension controlled currently on Prn antihypertensives. Monitor blood pressure (5) Acute hypoxemic respiratory failure Current Visit: Yes Status: Acute Plan to address problem: Patient has tracheostomy with trache collar. Chest x-ray reviewed with patchy opacities upper lung lynn Cultures obtained with Acinetobacter completed treatment with antibiotics. Ultrafiltration limited by hypotension repeat CXR with improvement in lung aeration. Subjective Principal diagnosis: Respiratory failure, acute on chronic systolic HF, ESRD Interval history: 63 year old Gentleman with medical history significant for ESRD on hemodialysis at [facility] on Saturday, Saturday and Saturday. via a left arm AVG admitted with acute respiratory failure; and hypotension prolonged hospital course received antibiotics for acinetobacter infection and s/p prolonged need for ventilation requiring Tracheostomy with T piece , now Tracheostomy has been capped. Patient seen today has tracheostomy on trache collar. no lower extremity edema. continue HD MWF appears confused Objective - Vital Signs Vital signs: Vital Signs - 12hr 05/13/19 05/14/19 05/14/19 22:00 00:09 00:11 Temperature Pulse Rate 99 H Respiratory Rate Blood Pressure O2 Sat by Pulse 98 Oximetry O2 Sat by Pulse 98 Oximetry [ Assessment] 05/14/19 05/14/19 05/14/19 00:18 04:10 08:14 Temperature 98.4 F 98.1 F 98.2 F Pulse Rate 110 H 103 H 98 H Respiratory 18 18 18 Rate Blood Pressure 105/53 120/63 192/92 O2 Sat by Pulse 98 100 88 Oximetry O2 Sat by Pulse Oximetry [ Assessment] - General Appearance General appearance: chronically ill, frail Neck: no JVD Respiratory: Present: Clear to Ascultation Cardiology: regular, S1S2 Gastrointestinal: normal, normoactive bowel sounds Neurologic: alert and oriented x3, CN 3-12 intact Psychiatric: mood/affect appropriate - Lab 05/12/19 07:15 05/12/19 07:15 Most recent lab results ABG pH 7.424 pH Units (7.350-7.450) 03/19/19 04:23 ABG pCO2 48.0 mm Hg 03/19/19 04:23 ABG pO2 78.3 mm Hg (80.0-90.0) L 03/19/19 04:23 ABG HCO3 30.7 mmol/L (20.0-26.0) H 03/19/19 04:23 ABG O2 Saturation 97.0 % (95.0-99.0) 03/19/19 04:23 Calcium 9.5 mg/dL (8.4-10.2) 05/12/19 07:15 Phosphorus 4.30 mg/dL (2.5-4.5) D 03/31/19 10:26 Magnesium 2.70 mg/dL (1.7-2.3) H 03/30/19 10:13 - Imaging Chest x-ray: image reviewed (i reviewed CXR with improvement in edema. ) Medications & Allergies - Medications Allergies/Adverse Reactions: Allergies haloperidol [From Haldol] Adverse Reaction (Verified 03/13/18 12:10) Unknown haloperidol lactate [From Haldol] Adverse Reaction (Verified 03/13/18 12:10) Unknown Home Medications: Home Medications Medication Instructions Recorded Confirmed Last Taken Type risperiDONE [RisperDAL] 1 mg PO QAM 03/13/18 02/21/19 Unknown History Sertraline [Zoloft] 100 mg PO QDAY 08/26/18 02/21/19 Unknown History Polyethylene Glycol 3350 [Miralax 17 gm PO QDAY #30 packet 11/05/18 02/21/19 Unknown Rx 3350] Aspirin EC [Halfprin EC] 81 mg PO DAILY #30 11/19/18 02/21/19 Unknown Rx Docusate Sodium [Colace CAP] 100 mg PO BID #60 11/19/18 02/21/19 Unknown Rx Folic Acid [Folvite] 1 mg PO DAILY #30 tab 11/19/18 02/21/19 Unknown Rx Famotidine [Pepcid] 20 mg PO DAILY tablet 12/08/18 02/21/19 Unknown Rx Gabapentin 100 mg PO QHS capsule 12/08/18 02/21/19 Unknown Rx Metoprolol [Lopressor TAB] 50 mg PO BID 30 Days tablet 12/08/18 02/21/19 Unknown Rx Sevelamer Carbonate [Renvela] 800 mg PO TIDWM tablet 12/08/18 02/21/19 Unknown Rx hydrALAZINE [Apresoline TAB] 100 mg PO Q8HR #120 tablet 12/08/18 02/21/19 Unknow n Rx Acetaminophen [Acetaminophen TAB] 650 mg PO Q12H PRN 12/15/18 02/21/19 Unknown History Glucagon,Human Recombinant 1 mg IJ Q15MIN PRN 12/15/18 02/21/19 Unknown History [Glucagon Emergency Kit] Insulin Aspart [NovoLOG 100 See Protocol SQ QWEEK 12/15/18 02/21/19 Unknown History UNITS/ML VIAL] Active Medications: Generic Name Dose Route Start Last Admin Trade Name Freq PRN Reason Stop Dose Admin Albuterol/Ipratropium 1 ampul 02/24/19 20:00 05/14/19 08:43 Duoneb *Not For Prn Use* IH 1 ampul TIDRT SANCHEZ Administration Lipase/Protease/Amylase 1 each 04/10/19 15:16 Pancreaze 10,500 Unit FEEDTUBE PRN PRN For Clogged Feeding Tube Epoetin Solitario 20,000 unit 03/24/19 11:17 05/13/19 14:37 Procrit IV 20,000 unit UMA PRN Administration hemodialysis Famotidine 20 mg 02/23/19 10:00 05/13/19 09:44 Pepcid PO 20 mg DAILY SANCHEZ Administration Sodium Chloride 100 mls @ 999 mls/hr 05/13/19 12:45 Nacl 0.9% IV UMA PRN Hypotension Insulin Human Regular 0 units 02/26/19 12:00 05/14/19 06:36 Humulin R SUB-Q 1 units Q6HR SANCHEZ Administration Protocol Metoprolol Tartrate 2.5 mg 02/28/19 12:06 03/15/19 05:15 Lopressor IV 2.5 mg Q4HR PRN Administration Tachycardia Risperidone 1 mg 02/25/19 13:00 05/13/19 09:44 Risperdal PO 1 mg DAILY SANCHEZ Administration Sertraline HCl 100 mg 02/25/19 13:00 05/13/19 09:44 Zoloft PO 100 mg DAILY SANCHEZ Administration Simple Syrup 15 ml 04/10/19 15:16 Simple Syrup FEEDTUBE PRN PRN Hypoglycemia Simple Syrup 30 ml 04/10/19 15:16 Simple Syrup FEEDTUBE PRN PRN Hypoglycemia Sodium Bicarbonate 325 mg 04/10/19 15:16 Sodium Bicarbonate FEEDTUBE PRN PRN For Clogged Feeding Tube Sodium Hypochlorite 1 applic 04/01/19 13:00 05/13/19 22:34 Dakin's Half Strength TP 100 applicatio BID SANCHEZ Administration
[2019-05-14] MEDS: SODIUM HYPOCHLORITE, DAKIN'S 1/2 STRENGTH (0.25%) 473 ML TOPICAL SOLN TP SCH ×2 (11:11→23:57)
[2019-05-14] MEDS: risperiDONE 1 MG TAB PO SCH (11:13)
[2019-05-14] MEDS: FAMOTIDINE 20 MG TAB PO SCH (11:13)
[2019-05-14] MEDS: SERTRALINE 100 MG TAB PO SCH (11:13)
--- NOTE | 2019-05-14 12:54 | Progress Note ---
Assessment and Plan Assessment and plan: Patient is a 63-year-old -[place] man from [facility] with a plethora of co-morbidities including blindness, CVA, CHF, PPM/ICD, loop recorder since 2012 that is MRI compatible, IDDM type 2, sepsis left foot ulcer, afib, ESRD with complications on HD TTS, hypertension, AOCD and GERD who presented to the ED with hypotensive after intubation in the emergency room. Still intubated, diagnosed with fluid overload, pleural effusion. Patient has had recurrent admission in the hospital for similar reason and was recently discharged from the hospital following treatment of Severe Sepsis due to Necrotizing Unstagable sacral decubitus ulcer with ostemomylitis, expected to complete abx on discharg e till 02/16/19. Trach and peg done HR control improved with change in BB. Acute respiratory failure on mechanical ventilator >96 hrs Trach placed on 03/03/19 Pulm consult appreciated weaning trial VAP BUNDLE ASPIRATION BUNDLE Continue T-piece Finished therapy for Acinetobacter Acute pulmonary edema, fluid overload on CXR repeat xray intermittently Dialysis Necrotizing Unstagable sacral decubitus ulcer with ostemomyelitis Wound care, Dilated CMP Cardiomyiopathy EF 35-40% Continue diuresis PPM/ICD Acute encephalopathy, probably metabolic or toxic Continues on Mechanical ventilator. ESRD on hemodialysis nephrology following Vascular eval. done re: LUE AV graft, see note Bilateral pleural effusions Anticipate improvement with Permanent atrial fibrillation and flutter Not on anticoagulation because of anemia thrombocytopenia Change noted to BB agent to IV. 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 -Pt is s/p x1 DDVAP RUL atelectasis, nebs as needed DVT prophylaxis Lovenox DNR poor prognosis Disposition: Awaiting on HD setup History Interval history: Patient was seen and examined. Follow-up on current diagnosis. No overnight events reported to me. Patient is mainly nonverbal. Imaging, nursing note, chart, labs and old chart reviewed. Hospitalist Physical - Physical exam Narrative exam: Gen: severely disable, nad, awake alert x 1 HEENT: NCAT, EOMI, PERRL, OP Clear Neck: supple, trach CVS/Heart: irreg irregular, normal S1S2, pulses present bilaterally Chest/Lungs: diminished bs ymmetrical chest expansion, good air entry bilaterally GI/Abdomen:peg, colostomy present, good bowel sounds, no guarding or rebound /Bladder: no suprapubic tenderness, no CVA or paraspinal tenderness Extermity/Skin: no c/c/e, no obvious rash MSK: no FROM x 4 Neuro: CN 2-12 grossly intact except vision, no new focal deficits Psych: calm - Constitutional Vitals: Temp Pulse Resp BP Pulse Ox 98.6 F 98 H 18 122/66 88 05/14/19 11:31 05/14/19 08:14 05/14/19 11:31 05/14/19 11:31 05/14/19 08:14 General appearance: Present: no acute distress, other (T peace). Absent: well- nourished Results - Labs CBC & Chem 7: 05/12/19 07:15 05/12/19 07:15 Labs: Laboratory Last Values WBC 9.9 K/mm3 (4.5-11.0) 05/12/19 07:15 RBC 3.32 M/mm3 (3.65-5.03) L 05/12/19 07:15 Hgb 8.7 gm/dl (11.8-15.2) L 05/12/19 07:15 Hct 27.8 % (35.5-45.6) L 05/12/19 07:15 MCV 84 fl (84-94) 05/12/19 07:15 MCH 26 pg (28-32) L 05/12/19 07:15 MCHC 31 % (32-34) L 05/12/19 07:15 RDW 19.8 % (13.2-15.2) H 05/12/19 07:15 Plt Count 325 K/mm3 (140-440) 05/12/19 07:15 Lymph % (Auto) 6.9 % (13.4-35.0) L 05/12/19 07:15 Maury % (Auto) 7.3 % (0.0-7.3) 05/12/19 07:15 Eos % (Auto) 6.5 % (0.0-4.3) H 05/12/19 07:15 Baso % (Auto) 0.7 % (0.0-1.8) 05/12/19 07:15 Lymph # 0.7 K/mm3 (1.2-5.4) L 05/12/19 07:15 Maury # 0.7 K/mm3 (0.0-0.8) 05/12/19 07:15 Eos # 0.6 K/mm3 (0.0-0.4) H 05/12/19 07:15 Baso # 0.1 K/mm3 (0.0-0.1) 05/12/19 07:15 Add Manual Diff Complete 03/21/19 06:30 Total Counted 100 03/21/19 06:30 Seg Neutrophils % 78.6 % (40.0-70.0) H 05/12/19 07:15 Seg Neuts % (Manual) 81.0 % (40.0-70.0) H 03/21/19 06:30 Band Neutrophils % 0 % 03/21/19 06:30 Lymphocytes % (Manual) 8.0 % (13.4-35.0) L 03/21/19 06:30 Reactive Lymphs % (Man) 0 % 03/21/19 06:30 Monocytes % (Manual) 1.0 % (0.0-7.3) 03/21/19 06:30 Eosinophils % (Manual) 8.0 % (0.0-4.3) H 03/21/19 06:30 Basophils % (Manual) 1.0 % (0.0-1.8) 03/21/19 06:30 Metamyelocytes % 1.0 % 03/21/19 06:30 Myelocytes % 0 % 03/21/19 06:30 Promyelocytes % 0 % 03/21/19 06:30 Blast Cells % 0 % 03/21/19 06:30 Nucleated RBC % Not Reportable 03/21/19 06:30 Seg Neutrophils # 7.8 K/mm3 (1.8-7.7) H 05/12/19 07:15 Seg Neutrophils # Man 6.7 K/mm3 (1.8-7.7) 03/21/19 06:30 Band Neutrophils # 0.0 K/mm3 03/21/19 06:30 Lymphocytes # (Manual) 0.7 K/mm3 (1.2-5.4) L 03/21/19 06:30 Abs React Lymphs (Man) 0.0 K/mm3 03/21/19 06:30 Monocytes # (Manual) 0.1 K/mm3 (0.0-0.8) 03/21/19 06:30 Eosinophils # (Manual) 0.7 K/mm3 (0.0-0.4) H 03/21/19 06:30 Basophils # (Manual) 0.1 K/mm3 (0.0-0.1) 03/21/19 06:30 Metamyelocytes # 0.1 K/mm3 03/21/19 06:30 Myelocytes # 0.0 K/mm3 03/21/19 06:30 Promyelocytes # 0.0 K/mm3 03/21/19 06:30 Blast Cells # 0.0 K/mm3 03/21/19 06:30 WBC Morphology Not Reportable 03/21/19 06:30 Hypersegmented Neuts Not Reportable 03/21/19 06:30 Hyposegmented Neuts Not Reportable 03/21/19 06:30 Hypogranular Neuts Not Reportable 03/21/19 06:30 Smudge Cells Not Reportable 03/21/19 06:30 Toxic Granulation Not Reportable 03/21/19 06:30 Toxic Vacuolation Not Reportable 03/21/19 06:30 Dohle Bodies Not Reportable 03/21/19 06:30 Pelger-Huet Anomaly Not Reportable 03/21/19 06:30 Tramaine Rods Not Reportable 03/21/19 06:30 Platelet Estimate Consistent w auto 03/21/19 06:30 Clumped Platelets Not Reportable 03/21/19 06:30 Plt Clumps, EDTA Not Reportable 03/21/19 06:30 Large Platelets Not Reportable 03/21/19 06:30 Giant Platelets Not Reportable 03/21/19 06:30 Platelet Satelliting Not Reportable 03/21/19 06:30 Plt Morphology Comment Not Reportable 03/21/19 06:30 RBC Morphology Not Reportable 03/21/19 06:30 Dimorphic RBCs Not Reportable 03/21/19 06:30 Polychromasia Not Reportable 03/21/19 06:30 Hypochromasia Few 03/21/19 06:30 Poikilocytosis Few 03/21/19 06:30 Anisocytosis Few 03/21/19 06:30 Microcytosis Not Reportable 03/21/19 06:30 Macrocytosis Not Reportable 03/21/19 06:30 Spherocytes Not Reportable 03/21/19 06:30 Pappenheimer Bodies Not Reportable 03/21/19 06:30 Sickle Cells Not Reportable 03/21/19 06:30 Target Cells 1+ 03/21/19 06:30 Tear Drop Cells Not Reportable 03/21/19 06:30 Ovalocytes Few 03/21/19 06:30 Helmet Cells Not Reportable 03/21/19 06:30 Zhou-Hostetter Bodies Not Reportable 03/21/19 06:30 Rickman Rings Not Reportable 03/21/19 06:30 [place] Cells Not Reportable 03/21/19 06:30 Bite Cells Not Reportable 03/21/19 06:30 Crenated Cell Not Reportable 03/21/19 06:30 Elliptocytes Not Reportable 03/21/19 06:30 Acanthocytes (Spur) Not Reportable 03/21/19 06:30 Rouleaux Not Reportable 03/21/19 06:30 Hemoglobin C Crystals Not Reportable 03/21/19 06:30 Schistocytes Not Reportable 03/21/19 06:30 Malaria parasites Not Reportable 03/21/19 06:30 Jose Juan Bodies Not Reportable 03/21/19 06:30 Hem Pathologist Commnt No 03/21/19 06:30 PT 16.3 Sec. (12.2-14.9) H 03/01/19 09:39 INR 1.35 (0.87-1.13) H 03/01/19 09:39 APTT 33.7 Sec. (24.2-36.6) 02/21/19 18:30 D-Dimer 2987.82 ng/mlDDU (0-234) H 02/22/19 05:54 POC ABG pH 7.510 (7.35-7.45) H 03/18/19 06:38 ABG pH 7.424 pH Units (7.350-7.450) 03/19/19 04:23 POC ABG pCO2 38.9 (35-45) 03/18/19 06:38 ABG pCO2 48.0 mm Hg 03/19/19 04:23 POC ABG pO2 164 (80-105) H 03/18/19 06:38 ABG pO2 78.3 mm Hg (80.0-90.0) L 03/19/19 04:23 POC ABG HCO3 31.0 (22-26 mml/L) 03/18/19 06:38 ABG HCO3 30.7 mmol/L (20.0-26.0) H 03/19/19 04:23 POC ABG Total CO2 32 (23-27mmol/L) 03/18/19 06:38 POC ABG O2 Sat 100 03/18/19 06:38 ABG O2 Saturation 97.0 % (95.0-99.0) 03/19/19 04:23 ABG O2 Content 7.9 (0.0-44) 03/19/19 04:23 POC ABG Base Excess 8 ((-2) - (+3)mmol/L) 03/18/19 06:38 ABG Base Excess 5.8 mmol/L (-2.0-3.0) H 03/19/19 04:23 ABG Hemoglobin 5.8 gm/dl (14.0-18.0) L 03/19/19 04:23 ABG Carboxyhemoglobin 2.0 % (0.0-5.0) 03/19/19 04:23 ABG Methemoglobin 0.4 % (0.0-1.5) 03/19/19 04:23 Oxyhemoglobin 94.6 % (95.0-99.0) L 03/19/19 04:23 FiO2 35 % 03/19/19 04:23 Sodium 135 mmol/L (137-145) L 05/12/19 07:15 Potassium 3.7 mmol/L (3.6-5.0) 05/12/19 07:15 Chloride 94.2 mmol/L (98-107) L 05/12/19 07:15 Carbon Dioxide 26 mmol/L (22-30) 05/12/19 07:15 Anion Gap 19 mmol/L 05/12/19 07:15 BUN 59 mg/dL (9-20) H 05/12/19 07:15 Creatinine 3.4 mg/dL (0.8-1.5) H 05/12/19 07:15 Estimated GFR 22 ml/min 05/12/19 07:15 BUN/Creatinine Ratio 17 % 05/12/19 07:15 Glucose 134 mg/dL (75-100) H 05/12/19 07:15 POC Glucose 141 (70-105) H 05/14/19 11:56 Lactic Acid 1.00 mmol/L (0.7-2.0) 02/21/19 20:58 Calcium 9.5 mg/dL (8.4-10.2) 05/12/19 07:15 Phosphorus 4.30 mg/dL (2.5-4.5) D 03/31/19 10:26 Magnesium 2.70 mg/dL (1.7-2.3) H 03/30/19 10:13 Total Bilirubin 0.20 mg/dL (0.1-1.2) 03/30/19 10:13 AST 16 units/L (5-40) 03/30/19 10:13 ALT 11 units/L (7-56) 03/30/19 10:13 Alkaline Phosphatase 185 units/L (35-129) H 03/30/19 10:13 Ammonia 28.0 umol/L (25-60) 02/21/19 20:04 Total Creatine Kinase 64 units/L (55-170) 02/22/19 03:42 CK-MB (CK-2) 3.7 ng/mL (0.0-4.0) 02/22/19 03:42 CK-MB (CK-2) Rel Index 5.7 (0-4) H 02/22/19 03:42 Troponin T 0.193 ng/mL (0.00-0.029) H* 02/22/19 03:42 Total Protein 6.9 g/dL (6.3-8.2) 03/30/19 10:13 Albumin 2.6 g/dL (3.9-5) L 03/30/19 10:13 Albumin/Globulin Ratio 0.6 % 03/30/19 10:13 Triglycerides 51 mg/dL (2-149) 02/21/19 18:30 Cholesterol 82 mg/dL (50-199) 02/21/19 18:30 LDL Cholesterol Direct 36 mg/dL (50-130) L 02/21/19 18:30 HDL Cholesterol 40 mg/dL (40-59) 02/21/19 18:30 Cholesterol/HDL Ratio 2.05 % 02/21/19 18:30 TSH 2.760 mlU/mL (0.270-4.200) 02/21/19 20:04 PTH Intact 267.6 pg/mL (15-65) H 03/02/19 05:15 Salicylates < 0.3 mg/dL (2.8-20.0) L 02/21/19 20:04 Acetaminophen < 5.0 ug/mL (10.0-30.0) L 02/21/19 20:04 Hepatitis A IgM Ab Non-reactive (NonReactive) 04/30/19 14:11 Hep Bs Antigen Non-reactive (Negative) 04/30/19 14:11 Hep B Core IgM Ab Non-reactive (NonReactive) 04/30/19 14:11 Hepatitis C Antibody Non-reactive (NonReactive) 04/30/19 14:11 Blood Type O POSITIVE 05/04/19 12:55 Antibody Screen Negative 05/04/19 12:55 Crossmatch See Detail 05/04/19 12:55 Active Medications - Current Medications Current Medications: Generic Name Dose Route Start Last Admin Trade Name Freq PRN Reason Stop Dose Admin Albuterol/Ipratropium 1 ampul 02/24/19 20:00 05/14/19 08:43 Duoneb *Not For Prn Use* IH 1 ampul TIDRT SANCHEZ Administration Lipase/Protease/Amylase 1 each 04/10/19 15:16 Pancreaze 10,500 Unit FEEDTUBE PRN PRN For Clogged Feeding Tube Epoetin Solitario 20,000 unit 03/24/19 11:17 05/13/19 14:37 Procrit IV 20,000 unit UMA PRN Administration hemodialysis Famotidine 20 mg 02/23/19 10:00 05/14/19 11:13 Pepcid PO 20 mg DAILY SANCHEZ Administration Sodium Chloride 100 mls @ 999 mls/hr 05/13/19 12:45 Nacl 0.9% IV UMA PRN Hypotension Insulin Human Regular 0 units 02/26/19 12:00 05/14/19 06:36 Humulin R SUB-Q 1 units Q6HR SANCHEZ Administration Protocol Metoprolol Tartrate 2.5 mg 02/28/19 12:06 03/15/19 05:15 Lopressor IV 2.5 mg Q4HR PRN Administration Tachycardia Risperidone 1 mg 02/25/19 13:00 05/14/19 11:13 Risperdal PO 1 mg DAILY SANCHEZ Administration Sertraline HCl 100 mg 02/25/19 13:00 05/14/19 11:13 Zoloft PO 100 mg DAILY SANCHEZ Administration Simple Syrup 15 ml 04/10/19 15:16 Simple Syrup FEEDTUBE PRN PRN Hypoglycemia Simple Syrup 30 ml 04/10/19 15:16 Simple Syrup FEEDTUBE PRN PRN Hypoglycemia Sodium Bicarbonate 325 mg 04/10/19 15:16 Sodium Bicarbonate FEEDTUBE PRN PRN For Clogged Feeding Tube Sodium Hypochlorite 1 applic 04/01/19 13:00 05/14/19 11:11 Dakin's Half Strength TP 1 applicatio BID SANCHEZ Administration Nutrition/Malnutrition Assess - Dietary Evaluation Nutrition/Malnutrition Findings: Nutrition Notes Start: 02/22/19 12:51 Freq: Status: Active Protocol: Document 05/08/19 15:04 RM (Rec: 05/08/19 15:15 RM [id number]) Nutrition Notes Initial or Follow up Reassessment Current Diagnosis Diabetes,Hypertension,Heart Failure Other Pertinent Diagnosis Sacral PU, ESRD on HD (T/Thurs /Sat), Schizophrenia,Blind in L eye,S/P trach Current Diet Nepro at 50 ml/hr w/Abhilash BID Labs/Tests POC 143, 153, 204 Pertinent Medications Reviewed Height 5 ft 10 in Weight 68.1 kg [place] Body Weight (kg) 75.45 BMI 21.5 Weight change and time frame Wt loss noted. Likely d/t fluid change. Subjective/Other Information Observed Nepro infusing at goal rate. Per nurse pt is tolerating TF and receiving Abhilash. Percent of energy/protein needs met: 100%/100% Burn Absent Trauma Absent Minimum of two criteria No #2 Nutrition Diagnosis Increased nutrient needs ( specify in comment below) Diagnosis Progress(for reassessment Continues documentation) #1 Nutrition Diagnosis Inadequate oral intake Diagnosis Progress(for reassessment Continues documentation) Is patient on ventilator? No Is Patient Ambulatory and/or Out of Bed No REE-([facility]-confined to bed) 1778.028 Kcal/Kg value to use for calculation 31 Approximate Energy Requirements Using 2111 kcal/Kg Calculation Used for Recommendations [facility] Additional Notes Protein Needs:90 - 112 g (1.2- 1.5 g/kg) Fluid Needs: 1-1.5 L/day Nutrition Intervention Change Diet Order: Continue TF Nutrition Support: Nepro with Carbsteady 1.8 at 50 ml/hr Flush 200 ml q4hr Kcal 2,160 Protein (gm) 97 Fluid (mL) 872 Add Supplement/Snack (indicate name/kcal Abhilash BID /protein ) Provides kCal: 190 Provides Protein (gm) 5 Goal #1 TF tolerance Goal #2 Continue to meet at least 75% of calorie and protein needs via TF Anticipated Discharge Needs: TF Follow-Up By: 05/15/19 Additional Comments Follow for TF tolerance
[2019-05-15] MEDS: INSULIN REGULAR, HUMAN 100 UNITS/1 ML SUB-Q SCH ×6 (01:58→18:40)
--- NOTE | 2019-05-15 07:05 | Progress Note ---
Assessment and Plan Assessment and plan: Patient is a 63-year-old -[place] man from [facility] with a plethora of co-morbidities including blindness, CVA, CHF, PPM/ICD, loop recorder since 2012 that is MRI compatible, IDDM type 2, sepsis left foot ulcer, afib, ESRD with complications on HD TTS, hypertension, AOCD and GERD who presented to the ED with hypotensive after intubation in the emergency room. Still intubated, diagnosed with fluid overload, pleural effusion. Patient has had recurrent admission in the hospital for similar reason and was recently discharged from the hospital following treatment of Severe Sepsis due to Necrotizing Unstagable sacral decubitus ulcer with ostemomylitis, expected to complete abx on discharg e till 02/16/19. Trach and peg done HR control improved with change in BB. Acute respiratory failure on mechanical ventilator >96 hrs Trach placed on 03/03/19 Pulm consult appreciated weaning trial VAP BUNDLE ASPIRATION BUNDLE Continue T-piece Finished therapy for Acinetobacter Acute pulmonary edema, fluid overload on CXR repeat xray intermittently Dialysis Necrotizing Unstagable sacral decubitus ulcer with ostemomyelitis Wound care, Dilated CMP Cardiomyiopathy EF 35-40% Continue diuresis PPM/ICD Acute encephalopathy, probably metabolic or toxic Continues on Mechanical ventilator. ESRD on hemodialysis nephrology following Vascular eval. done re: LUE AV graft, see note Bilateral pleural effusions Anticipate improvement with Permanent atrial fibrillation and flutter Not on anticoagulation because of anemia thrombocytopenia Change noted to BB agent to IV. 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 -Pt is s/p x1 DDVAP RUL atelectasis, nebs as needed DVT prophylaxis Lovenox DNR poor prognosis Disposition: Awaiting on HD setup History Interval history: Patient was seen and examined. Follow-up on current diagnosis. No overnight events reported to me. Patient is mainly nonverbal. Imaging, nursing note, chart, labs and old chart reviewed. Hospitalist Physical - Physical exam Narrative exam: Gen: severely disable, nad, awake alert x 1 HEENT: NCAT, EOMI, PERRL, OP Clear Neck: supple, trach CVS/Heart: irreg irregular, normal S1S2, pulses present bilaterally Chest/Lungs: diminished bs ymmetrical chest expansion, good air entry bilaterally GI/Abdomen:peg, colostomy present, good bowel sounds, no guarding or rebound /Bladder: no suprapubic tenderness, no CVA or paraspinal tenderness Extermity/Skin: no c/c/e, no obvious rash MSK: no FROM x 4 Neuro: CN 2-12 grossly intact except vision, no new focal deficits Psych: calm - Constitutional Vitals: Temp Pulse Resp BP Pulse Ox 97.5 F L 108 H 20 114/64 100 05/15/19 02:58 05/15/19 02:58 05/15/19 02:58 05/15/19 02:58 05/15/19 02:58 General appearance: Present: no acute distress, other (T peace). Absent: well- nourished Results - Labs CBC & Chem 7: 05/12/19 07:15 05/12/19 07:15 Labs: Laboratory Last Values WBC 9.9 K/mm3 (4.5-11.0) 05/12/19 07:15 RBC 3.32 M/mm3 (3.65-5.03) L 05/12/19 07:15 Hgb 8.7 gm/dl (11.8-15.2) L 05/12/19 07:15 Hct 27.8 % (35.5-45.6) L 05/12/19 07:15 MCV 84 fl (84-94) 05/12/19 07:15 MCH 26 pg (28-32) L 05/12/19 07:15 MCHC 31 % (32-34) L 05/12/19 07:15 RDW 19.8 % (13.2-15.2) H 05/12/19 07:15 Plt Count 325 K/mm3 (140-440) 05/12/19 07:15 Lymph % (Auto) 6.9 % (13.4-35.0) L 05/12/19 07:15 [place] % (Auto) 7.3 % (0.0-7.3) 05/12/19 07:15 Eos % (Auto) 6.5 % (0.0-4.3) H 05/12/19 07:15 Baso % (Auto) 0.7 % (0.0-1.8) 05/12/19 07:15 Lymph # 0.7 K/mm3 (1.2-5.4) L 05/12/19 07:15 Imperial # 0.7 K/mm3 (0.0-0.8) 05/12/19 07:15 Eos # 0.6 K/mm3 (0.0-0.4) H 05/12/19 07:15 Baso # 0.1 K/mm3 (0.0-0.1) 05/12/19 07:15 Add Manual Diff Complete 03/21/19 06:30 Total Counted 100 03/21/19 06:30 Seg Neutrophils % 78.6 % (40.0-70.0) H 05/12/19 07:15 Seg Neuts % (Manual) 81.0 % (40.0-70.0) H 03/21/19 06:30 Band Neutrophils % 0 % 03/21/19 06:30 Lymphocytes % (Manual) 8.0 % (13.4-35.0) L 03/21/19 06:30 Reactive Lymphs % (Man) 0 % 03/21/19 06:30 Monocytes % (Manual) 1.0 % (0.0-7.3) 03/21/19 06:30 Eosinophils % (Manual) 8.0 % (0.0-4.3) H 03/21/19 06:30 Basophils % (Manual) 1.0 % (0.0-1.8) 03/21/19 06:30 Metamyelocytes % 1.0 % 03/21/19 06:30 Myelocytes % 0 % 03/21/19 06:30 Promyelocytes % 0 % 03/21/19 06:30 Blast Cells % 0 % 03/21/19 06:30 Nucleated RBC % Not Reportable 03/21/19 06:30 Seg Neutrophils # 7.8 K/mm3 (1.8-7.7) H 05/12/19 07:15 Seg Neutrophils # Man 6.7 K/mm3 (1.8-7.7) 03/21/19 06:30 Band Neutrophils # 0.0 K/mm3 03/21/19 06:30 Lymphocytes # (Manual) 0.7 K/mm3 (1.2-5.4) L 03/21/19 06:30 Abs React Lymphs (Man) 0.0 K/mm3 03/21/19 06:30 Monocytes # (Manual) 0.1 K/mm3 (0.0-0.8) 03/21/19 06:30 Eosinophils # (Manual) 0.7 K/mm3 (0.0-0.4) H 03/21/19 06:30 Basophils # (Manual) 0.1 K/mm3 (0.0-0.1) 03/21/19 06:30 Metamyelocytes # 0.1 K/mm3 03/21/19 06:30 Myelocytes # 0.0 K/mm3 03/21/19 06:30 Promyelocytes # 0.0 K/mm3 03/21/19 06:30 Blast Cells # 0.0 K/mm3 03/21/19 06:30 WBC Morphology Not Reportable 03/21/19 06:30 Hypersegmented Neuts Not Reportable 03/21/19 06:30 Hyposegmented Neuts Not Reportable 03/21/19 06:30 Hypogranular Neuts Not Reportable 03/21/19 06:30 Smudge Cells Not Reportable 03/21/19 06:30 Toxic Granulation Not Reportable 03/21/19 06:30 Toxic Vacuolation Not Reportable 03/21/19 06:30 Dohle Bodies Not Reportable 03/21/19 06:30 Pelger-Huet Anomaly Not Reportable 03/21/19 06:30 Tramaine Rods Not Reportable 03/21/19 06:30 Platelet Estimate Consistent w auto 03/21/19 06:30 Clumped Platelets Not Reportable 03/21/19 06:30 Plt Clumps, EDTA Not Reportable 03/21/19 06:30 Large Platelets Not Reportable 03/21/19 06:30 Giant Platelets Not Reportable 03/21/19 06:30 Platelet Satelliting Not Reportable 03/21/19 06:30 Plt Morphology Comment Not Reportable 03/21/19 06:30 RBC Morphology Not Reportable 03/21/19 06:30 Dimorphic RBCs Not Reportable 03/21/19 06:30 Polychromasia Not Reportable 03/21/19 06:30 Hypochromasia Few 03/21/19 06:30 Poikilocytosis Few 03/21/19 06:30 Anisocytosis Few 03/21/19 06:30 Microcytosis Not Reportable 03/21/19 06:30 Macrocytosis Not Reportable 03/21/19 06:30 Spherocytes Not Reportable 03/21/19 06:30 Pappenheimer Bodies Not Reportable 03/21/19 06:30 Sickle Cells Not Reportable 03/21/19 06:30 Target Cells 1+ 03/21/19 06:30 Tear Drop Cells Not Reportable 03/21/19 06:30 Ovalocytes Few 03/21/19 06:30 Helmet Cells Not Reportable 03/21/19 06:30 [place] Bodies Not Reportable 03/21/19 06:30 [place] Rings Not Reportable 03/21/19 06:30 Hebert Cells Not Reportable 03/21/19 06:30 Bite Cells Not Reportable 03/21/19 06:30 Crenated Cell Not Reportable 03/21/19 06:30 Elliptocytes Not Reportable 03/21/19 06:30 Acanthocytes (Spur) Not Reportable 03/21/19 06:30 Rouleaux Not Reportable 03/21/19 06:30 Hemoglobin C Crystals Not Reportable 03/21/19 06:30 Schistocytes Not Reportable 03/21/19 06:30 Malaria parasites Not Reportable 03/21/19 06:30 Jose Juan Bodies Not Reportable 03/21/19 06:30 Hem Pathologist Commnt No 03/21/19 06:30 PT 16.3 Sec. (12.2-14.9) H 03/01/19 09:39 INR 1.35 (0.87-1.13) H 03/01/19 09:39 APTT 33.7 Sec. (24.2-36.6) 02/21/19 18:30 D-Dimer 2987.82 ng/mlDDU (0-234) H 02/22/19 05:54 POC ABG pH 7.510 (7.35-7.45) H 03/18/19 06:38 ABG pH 7.424 pH Units (7.350-7.450) 03/19/19 04:23 POC ABG pCO2 38.9 (35-45) 03/18/19 06:38 ABG pCO2 48.0 mm Hg 03/19/19 04:23 POC ABG pO2 164 (80-105) H 03/18/19 06:38 ABG pO2 78.3 mm Hg (80.0-90.0) L 03/19/19 04:23 POC ABG HCO3 31.0 (22-26 mml/L) 03/18/19 06:38 ABG HCO3 30.7 mmol/L (20.0-26.0) H 03/19/19 04:23 POC ABG Total CO2 32 (23-27mmol/L) 03/18/19 06:38 POC ABG O2 Sat 100 03/18/19 06:38 ABG O2 Saturation 97.0 % (95.0-99.0) 03/19/19 04:23 ABG O2 Content 7.9 (0.0-44) 03/19/19 04:23 POC ABG Base Excess 8 ((-2) - (+3)mmol/L) 03/18/19 06:38 ABG Base Excess 5.8 mmol/L (-2.0-3.0) H 03/19/19 04:23 ABG Hemoglobin 5.8 gm/dl (14.0-18.0) L 03/19/19 04:23 ABG Carboxyhemoglobin 2.0 % (0.0-5.0) 03/19/19 04:23 ABG Methemoglobin 0.4 % (0.0-1.5) 03/19/19 04:23 Oxyhemoglobin 94.6 % (95.0-99.0) L 03/19/19 04:23 FiO2 35 % 03/19/19 04:23 Sodium 135 mmol/L (137-145) L 05/12/19 07:15 Potassium 3.7 mmol/L (3.6-5.0) 05/12/19 07:15 Chloride 94.2 mmol/L (98-107) L 05/12/19 07:15 Carbon Dioxide 26 mmol/L (22-30) 05/12/19 07:15 Anion Gap 19 mmol/L 05/12/19 07:15 BUN 59 mg/dL (9-20) H 05/12/19 07:15 Creatinine 3.4 mg/dL (0.8-1.5) H 05/12/19 07:15 Estimated GFR 22 ml/min 05/12/19 07:15 BUN/Creatinine Ratio 17 % 05/12/19 07:15 Glucose 134 mg/dL (75-100) H 05/12/19 07:15 POC Glucose 119 (70-105) H 05/15/19 05:55 Lactic Acid 1.00 mmol/L (0.7-2.0) 02/21/19 20:58 Calcium 9.5 mg/dL (8.4-10.2) 05/12/19 07:15 Phosphorus 4.30 mg/dL (2.5-4.5) D 03/31/19 10:26 Magnesium 2.70 mg/dL (1.7-2.3) H 03/30/19 10:13 Total Bilirubin 0.20 mg/dL (0.1-1.2) 03/30/19 10:13 AST 16 units/L (5-40) 03/30/19 10:13 ALT 11 units/L (7-56) 03/30/19 10:13 Alkaline Phosphatase 185 units/L (35-129) H 03/30/19 10:13 Ammonia 28.0 umol/L (25-60) 02/21/19 20:04 Total Creatine Kinase 64 units/L (55-170) 02/22/19 03:42 CK-MB (CK-2) 3.7 ng/mL (0.0-4.0) 02/22/19 03:42 CK-MB (CK-2) Rel Index 5.7 (0-4) H 02/22/19 03:42 Troponin T 0.193 ng/mL (0.00-0.029) H* 02/22/19 03:42 Total Protein 6.9 g/dL (6.3-8.2) 03/30/19 10:13 Albumin 2.6 g/dL (3.9-5) L 03/30/19 10:13 Albumin/Globulin Ratio 0.6 % 03/30/19 10:13 Triglycerides 51 mg/dL (2-149) 02/21/19 18:30 Cholesterol 82 mg/dL (50-199) 02/21/19 18:30 LDL Cholesterol Direct 36 mg/dL (50-130) L 02/21/19 18:30 HDL Cholesterol 40 mg/dL (40-59) 02/21/19 18:30 Cholesterol/HDL Ratio 2.05 % 02/21/19 18:30 TSH 2.760 mlU/mL (0.270-4.200) 02/21/19 20:04 PTH Intact 267.6 pg/mL (15-65) H 03/02/19 05:15 Salicylates < 0.3 mg/dL (2.8-20.0) L 02/21/19 20:04 Acetaminophen < 5.0 ug/mL (10.0-30.0) L 02/21/19 20:04 Hepatitis A IgM Ab Non-reactive (NonReactive) 04/30/19 14:11 Hep Bs Antigen Non-reactive (Negative) 04/30/19 14:11 Hep B Core IgM Ab Non-reactive (NonReactive) 04/30/19 14:11 Hepatitis C Antibody Non-reactive (NonReactive) 04/30/19 14:11 Blood Type O POSITIVE 05/04/19 12:55 Antibody Screen Negative 05/04/19 12:55 Crossmatch See Detail 05/04/19 12:55 Active Medications - Current Medications Current Medications: Generic Name Dose Route Start Last Admin Trade Name Freq PRN Reason Stop Dose Admin Albuterol/Ipratropium 1 ampul 02/24/19 20:00 05/14/19 21:28 Duoneb *Not For Prn Use* IH 1 ampul TIDRT SANCHEZ Administration Lipase/Protease/Amylase 1 each 04/10/19 15:16 Pancreaze 10,500 Unit FEEDTUBE PRN PRN For Clogged Feeding Tube Epoetin Solitario 20,000 unit 03/24/19 11:17 05/13/19 14:37 Procrit IV 20,000 unit UMA PRN Administration hemodialysis Famotidine 20 mg 02/23/19 10:00 05/14/19 11:13 Pepcid PO 20 mg DAILY SANCHEZ Administration Sodium Chloride 100 mls @ 999 mls/hr 05/13/19 12:45 Nacl 0.9% IV UMA PRN Hypotension Insulin Human Regular 0 units 02/26/19 12:00 05/15/19 01:58 Humulin R SUB-Q 1 units Q6HR SANCHEZ Administration Protocol Metoprolol Tartrate 2.5 mg 02/28/19 12:06 03/15/19 05:15 Lopressor IV 2.5 mg Q4HR PRN Administration Tachycardia Risperidone 1 mg 02/25/19 13:00 05/14/19 11:13 Risperdal PO 1 mg DAILY SANCHEZ Administration Sertraline HCl 100 mg 02/25/19 13:00 05/14/19 11:13 Zoloft PO 100 mg DAILY SANCHEZ Administration Simple Syrup 15 ml 04/10/19 15:16 Simple Syrup FEEDTUBE PRN PRN Hypoglycemia Simple Syrup 30 ml 04/10/19 15:16 Simple Syrup FEEDTUBE PRN PRN Hypoglycemia Sodium Bicarbonate 325 mg 04/10/19 15:16 Sodium Bicarbonate FEEDTUBE PRN PRN For Clogged Feeding Tube Sodium Hypochlorite 1 applic 04/01/19 13:00 05/14/19 23:57 Dakin's Half Strength TP 1 applicatio BID SANCHEZ Administration Nutrition/Malnutrition Assess - Dietary Evaluation Nutrition/Malnutrition Findings: Nutrition Notes Start: 02/22/19 12:51 Freq: Status: Active Protocol: Document 05/08/19 15:04 RM (Rec: 05/08/19 15:15 RM [email or web address]) Nutrition Notes Initial or Follow up Reassessment Current Diagnosis Diabetes,Hypertension,Heart Failure Other Pertinent Diagnosis Sacral PU, ESRD on HD (T/Thurs /Sat), Schizophrenia,Blind in L eye,S/P trach Current Diet Nepro at 50 ml/hr w/Abhilash BID Labs/Tests POC 143, 153, 204 Pertinent Medications Reviewed Height 5 ft 10 in Weight 68.1 kg Harvey Body Weight (kg) 75.45 BMI 21.5 Weight change and time frame Wt loss noted. Likely d/t fluid change. Subjective/Other Information Observed Nepro infusing at goal rate. Per nurse pt is tolerating TF and receiving Abhilash. Percent of energy/protein needs met: 100%/100% Burn Absent Trauma Absent Minimum of two criteria No #2 Nutrition Diagnosis Increased nutrient needs ( specify in comment below) Diagnosis Progress(for reassessment Continues documentation) #1 Nutrition Diagnosis Inadequate oral intake Diagnosis Progress(for reassessment Continues documentation) Is patient on ventilator? No Is Patient Ambulatory and/or Out of Bed No REE-([facility]-confined to bed) 1778.028 Kcal/Kg value to use for calculation 31 Approximate Energy Requirements Using 2111 kcal/Kg Calculation Used for Recommendations [facility] Additional Notes Protein Needs:90 - 112 g (1.2- 1.5 g/kg) Fluid Needs: 1-1.5 L/day Nutrition Intervention Change Diet Order: Continue TF Nutrition Support: Nepro with Carbsteady 1.8 at 50 ml/hr Flush 200 ml q4hr Kcal 2,160 Protein (gm) 97 Fluid (mL) 872 Add Supplement/Snack (indicate name/kcal Abhilash BID /protein ) Provides kCal: 190 Provides Protein (gm) 5 Goal #1 TF tolerance Goal #2 Continue to meet at least 75% of calorie and protein needs via TF Anticipated Discharge Needs: TF Follow-Up By: 05/15/19 Additional Comments Follow for TF tolerance
[2019-05-15] MEDS: IPRATROPIUM/ALBUTEROL SULFATE 3 ML AMPUL.NEB IH SCH ×3 (09:00→20:21)
[2019-05-15] MEDS ORDERED: SODIUM CHLORIDE*PRIMING MACHINE ONLY FOR DIALYSIS MC ONE (11:54)
[2019-05-15] MEDS: EPOETIN ALFA 20,000 UNIT/1 ML INJ IV PRN (12:01)
--- NOTE | 2019-05-15 12:47 | Progress Note ---
Assessment and Plan 63 y/o male with multiple medical issues admitted with altered mental status, acute respiratory failure requiring mechanical ventilation 1. Continue capping trials. Nasal cannula therapy. 2. HD per renal 3. PT/OT if possible 4. CM working on placement 5. No objection to discharge once placement is found Subjective Date of service: 05/15/19 Principal diagnosis: Respiratory failure, acute on chronic systolic HF, ESRD Interval history: No acute events. Remains capped. In HD. Objective Vital Signs - 12hr 05/15/19 05/15/19 05/15/19 02:58 07:49 08:58 Temperature 97.5 F L 98.7 F Pulse Rate 108 H 111 H Pulse Rate [ Anterior Bilateral Throughout] Respiratory 20 18 Rate Respiratory Rate [Anterior Bilateral Throughout] Blood Pressure 114/64 118/64 O2 Sat by Pulse 100 100 100 Oximetry 05/15/19 05/15/19 05/15/19 09:01 09:19 09:28 Temperature 99.6 F Pulse Rate 123 H 123 H Pulse Rate [ 120 H Anterior Bilateral Throughout] Respiratory 18 Rate Respiratory 18 Rate [Anterior Bilateral Throughout] Blood Pressure 130/69 122/66 O2 Sat by Pulse Oximetry 05/15/19 05/15/19 05/15/19 09:30 09:45 10:00 Temperature Pulse Rate 116 H 130 H 128 H Pulse Rate [ Anterior Bilateral Throughout] Respiratory Rate Respiratory Rate [Anterior Bilateral Throughout] Blood Pressure 120/50 106/57 115/55 O2 Sat by Pulse Oximetry 05/15/19 05/15/19 05/15/19 10:15 10:30 10:45 Temperature Pulse Rate 129 H 125 H 130 H Pulse Rate [ Anterior Bilateral Throughout] Respiratory Rate Respiratory Rate [Anterior Bilateral Throughout] Blood Pressure 115/53 110/55 116/74 O2 Sat by Pulse Oximetry 05/15/19 05/15/19 05/15/19 11:00 11:15 11:30 Temperature Pulse Rate 95 H 119 H 103 H Pulse Rate [ Anterior Bilateral Throughout] Respiratory Rate Respiratory Rate [Anterior Bilateral Throughout] Blood Pressure 117/61 99/69 106/65 O2 Sat by Pulse Oximetry 05/15/19 05/15/19 05/15/19 11:45 12:15 12:30 Temperature Pulse Rate 103 H 108 H 80 Pulse Rate [ Anterior Bilateral Throughout] Respiratory Rate Respiratory Rate [Anterior Bilateral Throughout] Blood Pressure 106/48 120/45 90/45 O2 Sat by Pulse Oximetry Constitutional: no acute distress, alert Eyes: non-icteric ENT: oropharynx moist Neck: supple Effort: normal Ascultation: Bilateral: diminished breath sounds, other (coarse BS bilaterally) Percussion: Bilateral: not dull Cardiovascular: regular rate and rhythm (no mrg) Gastrointestinal: normoactive bowel sounds, soft, non-tender, non-distended, other (ostomy in place, brown stool) Extremities: no cyanosis, no edema, pink and warm Neurologic: other (mild weakness LUE, o/w nonfocal) Psychiatric: other (unable to assess) CBC and BMP: 05/12/19 07:15 05/12/19 07:15 ABG, PT/INR, D-dimer: ABG POC ABG pH 7.510 (7.35-7.45) H 03/18/19 06:38 ABG pH 7.424 pH Units (7.350-7.450) 03/19/19 04:23 POC ABG pCO2 38.9 (35-45) 03/18/19 06:38 ABG pCO2 48.0 mm Hg 03/19/19 04:23 POC ABG pO2 164 (80-105) H 03/18/19 06:38 ABG pO2 78.3 mm Hg (80.0-90.0) L 03/19/19 04:23 POC ABG HCO3 31.0 (22-26 mml/L) 03/18/19 06:38 POC ABG Total CO2 32 (23-27mmol/L) 03/18/19 06:38 POC ABG O2 Sat 100 03/18/19 06:38 ABG O2 Saturation 97.0 % (95.0-99.0) 03/19/19 04:23 PT/INR, D-dimer PT 16.3 Sec. (12.2-14.9) H 03/01/19 09:39 INR 1.35 (0.87-1.13) H 03/01/19 09:39 D-Dimer 2987.82 ng/mlDDU (0-234) H 02/22/19 05:54 Abnormal lab findings: Abnormal Labs 02/21/19 02/21/19 02/21/19 18:30 18:30 18:30 WBC RBC 3.26 L Hgb 8.8 L Hct 29.0 L MCV MCH 27 L MCHC 30 L RDW 19.1 H Plt Count Lymph % (Auto) 6.1 L [place] % (Auto) Eos % (Auto) Baso % (Auto) Lymph # 0.4 L [place] # Eos # Baso # Seg Neutrophils % 86.2 H Seg Neuts % (Manual) Lymphocytes % (Manual) Eosinophils % (Manual) Seg Neutrophils # Lymphocytes # (Manual) Eosinophils # (Manual) PT INR D-Dimer POC ABG pH POC ABG pCO2 POC ABG pO2 ABG pO2 ABG HCO3 ABG Base Excess ABG Hemoglobin Oxyhemoglobin Sodium 133 L Potassium 3.3 L Chloride 93.1 L Carbon Dioxide 33 H BUN Creatinine Glucose 161 H POC Glucose Calcium Phosphorus Magnesium ALT Alkaline Phosphatase 136 H Total Creatine Kinase 37 L CK-MB (CK-2) Rel Index Troponin T 0.192 H* Albumin 2.4 L LDL Cholesterol Direct 36 L PTH Intact Salicylates Acetaminophen Crossmatch 02/21/19 02/21/19 02/21/19 18:42 20:04 20:04 WBC RBC Hgb Hct MCV MCH MCHC RDW Plt Count Lymph % (Auto) [place] % (Auto) Eos % (Auto) Baso % (Auto) Lymph # [place] # Eos # Baso # Seg Neutrophils % Seg Neuts % (Manual) Lymphocytes % (Manual) Eosinophils % (Manual) Seg Neutrophils # Lymphocytes # (Manual) Eosinophils # (Manual) PT INR D-Dimer POC ABG pH POC ABG pCO2 56.7 H POC ABG pO2 291 H ABG pO2 ABG HCO3 ABG Base Excess ABG Hemoglobin Oxyhemoglobin Sodium Potassium Chloride Carbon Dioxide BUN Creatinine Glucose POC Glucose Calcium Phosphorus Magnesium ALT Alkaline Phosphatase Total Creatine Kinase CK-MB (CK-2) Rel Index Troponin T Albumin LDL Cholesterol Direct PTH Intact Salicylates < 0.3 L Acetaminophen < 5.0 L Crossmatch 02/21/19 02/22/19 02/22/19 22:35 03:42 03:42 WBC RBC 3.20 L Hgb 8.8 L Hct 27.6 L MCV MCH MCHC RDW 18.9 H Plt Count Lymph % (Auto) 7.4 L [place] % (Auto) Eos % (Auto) Baso % (Auto) Lymph # 0.7 L [place] # Eos # Baso # Seg Neutrophils % 84.7 H Seg Neuts % (Manual) Lymphocytes % (Manual) Eosinophils % (Manual) Seg Neutrophils # Lymphocytes # (Manual) Eosinophils # (Manual) PT INR D-Dimer POC ABG pH POC ABG pCO2 POC ABG pO2 ABG pO2 ABG HCO3 ABG Base Excess ABG Hemoglobin Oxyhemoglobin Sodium 134 L Potassium 2.6 L* D Chloride Carbon Dioxide BUN Creatinine Glucose POC Glucose Calcium Phosphorus Magnesium ALT Alkaline Phosphatase Total Creatine Kinase CK-MB (CK-2) Rel Index 5.2 H Troponin T 0.202 H* Albumin LDL Cholesterol Direct PTH Intact Salicylates Acetaminophen Crossmatch 02/22/19 02/22/19 02/22/19 03:42 05:54 09:04 WBC RBC Hgb Hct MCV MCH MCHC RDW Plt Count Lymph % (Auto) [place] % (Auto) Eos % (Auto) Baso % (Auto) Lymph # [place] # Eos # Baso # Seg Neutrophils % Seg Neuts % (Manual) Lymphocytes % (Manual) Eosinophils % (Manual) Seg Neutrophils # Lymphocytes # (Manual) Eosinophils # (Manual) PT INR D-Dimer 2987.82 H POC ABG pH 7.451 H POC ABG pCO2 POC ABG pO2 ABG pO2 ABG HCO3 ABG Base Excess ABG Hemoglobin Oxyhemoglobin Sodium Potassium Chloride Carbon Dioxide BUN Creatinine Glucose POC Glucose Calcium Phosphorus Magnesium ALT Alkaline Phosphatase Total Creatine Kinase CK-MB (CK-2) Rel Index 5.7 H Troponin T 0.193 H* Albumin LDL Cholesterol Direct PTH Intact Salicylates Acetaminophen Crossmatch 02/22/19 02/22/19 02/23/19 10:36 23:56 00:52 WBC RBC Hgb Hct MCV MCH MCHC RDW Plt Count Lymph % (Auto) [place] % (Auto) Eos % (Auto) Baso % (Auto) Lymph # [place] # Eos # Baso # Seg Neutrophils % Seg Neuts % (Manual) Lymphocytes % (Manual) Eosinophils % (Manual) Seg Neutrophils # Lymphocytes # (Manual) Eosinophils # (Manual) PT INR D-Dimer POC ABG pH POC ABG pCO2 POC ABG pO2 ABG pO2 ABG HCO3 ABG Base Excess ABG Hemoglobin Oxyhemoglobin Sodium Potassium 3.1 L Chloride Carbon Dioxide BUN Creatinine Glucose POC Glucose 58 L 111 H Calcium Phosphorus Magnesium ALT Alkaline Phosphatase Total Creatine Kinase CK-MB (CK-2) Rel Index Troponin T Albumin LDL Cholesterol Direct PTH Intact Salicylates Acetaminophen Crossmatch 02/23/19 02/23/19 02/23/19 05:00 06:35 14:26 WBC RBC Hgb Hct MCV MCH MCHC RDW Plt Count Lymph % (Auto) [place] % (Auto) Eos % (Auto) Baso % (Auto) Lymph # [place] # Eos # Baso # Seg Neutrophils % Seg Neuts % (Manual) Lymphocytes % (Manual) Eosinophils % (Manual) Seg Neutrophils # Lymphocytes # (Manual) Eosinophils # (Manual) PT INR D-Dimer POC ABG pH POC ABG pCO2 POC ABG pO2 ABG pO2 ABG HCO3 ABG Base Excess ABG Hemoglobin Oxyhemoglobin Sodium 135 L Potassium 3.1 L Chloride Carbon Dioxide BUN 21 H Creatinine 2.0 H Glucose 57 L POC Glucose 64 L 62 L Calcium Phosphorus Magnesium ALT Alkaline Phosphatase Total Creatine Kinase CK-MB (CK-2) Rel Index Troponin T Albumin LDL Cholesterol Direct PTH Intact Salicylates Acetaminophen Crossmatch 02/24/19 02/24/19 02/24/19 02:11 04:12 04:55 WBC RBC 2.84 L Hgb 7.8 L Hct 24.5 L MCV MCH MCHC RDW 19.5 H Plt Count Lymph % (Auto) [place] % (Auto) Eos % (Auto) Baso % (Auto) Lymph # [place] # Eos # Baso # Seg Neutrophils % Seg Neuts % (Manual) Lymphocytes % (Manual) Eosinophils % (Manual) Seg Neutrophils # Lymphocytes # (Manual) Eosinophils # (Manual) PT INR D-Dimer POC ABG pH 7.511 H POC ABG pCO2 33.9 L POC ABG pO2 62 L ABG pO2 ABG HCO3 ABG Base Excess ABG Hemoglobin Oxyhemoglobin Sodium Potassium Chloride Carbon Dioxide BUN Creatinine Glucose POC Glucose 69 L Calcium Phosphorus Magnesium ALT Alkaline Phosphatase Total Creatine Kinase CK-MB (CK-2) Rel Index Troponin T Albumin LDL Cholesterol Direct PTH Intact Salicylates Acetaminophen Crossmatch 02/24/19 02/24/19 02/25/19 04:55 05:41 04:45 WBC RBC Hgb Hct MCV MCH MCHC RDW Plt Count Lymph % (Auto) [place] % (Auto) Eos % (Auto) Baso % (Auto) Lymph # [place] # Eos # Baso # Seg Neutrophils % Seg Neuts % (Manual) Lymphocytes % (Manual) Eosinophils % (Manual) Seg Neutrophils # Lymphocytes # (Manual) Eosinophils # (Manual) PT INR D-Dimer POC ABG pH 7.466 H POC ABG pCO2 POC ABG pO2 75 L ABG pO2 ABG HCO3 ABG Base Excess ABG Hemoglobin Oxyhemoglobin Sodium Potassium Chloride Carbon Dioxide BUN Creatinine 1.8 H Glucose 73 L POC Glucose 127 H Calcium Phosphorus Magnesium ALT Alkaline Phosphatase Total Creatine Kinase CK-MB (CK-2) Rel Index Troponin T Albumin LDL Cholesterol Direct PTH Intact Salicylates Acetaminophen Crossmatch 02/25/19 02/25/19 02/26/19 16:34 21:33 03:45 WBC RBC 2.96 L Hgb 8.0 L Hct 25.8 L MCV MCH 27 L MCHC 31 L RDW 20.0 H Plt Count Lymph % (Auto) [place] % (Auto) Eos % (Auto) Baso % (Auto) Lymph # [place] # Eos # Baso # Seg Neutrophils % Seg Neuts % (Manual) Lymphocytes % (Manual) Eosinophils % (Manual) Seg Neutrophils # Lymphocytes # (Manual) Eosinophils # (Manual) PT INR D-Dimer POC ABG pH POC ABG pCO2 POC ABG pO2 ABG pO2 ABG HCO3 ABG Base Excess ABG Hemoglobin Oxyhemoglobin Sodium Potassium Chloride Carbon Dioxide BUN Creatinine Glucose POC Glucose 141 H 106 H Calcium Phosphorus Magnesium ALT Alkaline Phosphatase Total Creatine Kinase CK-MB (CK-2) Rel Index Troponin T Albumin LDL Cholesterol Direct PTH Intact Salicylates Acetaminophen Crossmatch 02/26/19 02/26/19 02/26/19 03:45 04:13 07:53 WBC RBC Hgb Hct MCV MCH MCHC RDW Plt Count Lymph % (Auto) [place] % (Auto) Eos % (Auto) Baso % (Auto) Lymph # [place] # Eos # Baso # Seg Neutrophils % Seg Neuts % (Manual) Lymphocytes % (Manual) Eosinophils % (Manual) Seg Neutrophils # Lymphocytes # (Manual) Eosinophils # (Manual) PT INR D-Dimer POC ABG pH 7.470 H POC ABG pCO2 POC ABG pO2 ABG pO2 ABG HCO3 ABG Base Excess ABG Hemoglobin Oxyhemoglobin Sodium Potassium Chloride Carbon Dioxide BUN Creatinine 1.8 H Glucose POC Glucose 110 H Calcium Phosphorus Magnesium ALT Alkaline Phosphatase Total Creatine Kinase CK-MB (CK-2) Rel Index Troponin T Albumin LDL Cholesterol Direct PTH Intact Salicylates Acetaminophen Crossmatch 02/26/19 02/26/19 02/27/19 11:56 17:43 00:12 WBC RBC Hgb Hct MCV MCH MCHC RDW Plt Count Lymph % (Auto) [place] % (Auto) Eos % (Auto) Baso % (Auto) Lymph # [place] # Eos # Baso # Seg Neutrophils % Seg Neuts % (Manual) Lymphocytes % (Manual) Eosinophils % (Manual) Seg Neutrophils # Lymphocytes # (Manual) Eosinophils # (Manual) PT INR D-Dimer POC ABG pH POC ABG pCO2 POC ABG pO2 ABG pO2 ABG HCO3 ABG Base Excess ABG Hemoglobin Oxyhemoglobin Sodium Potassium Chloride Carbon Dioxide BUN Creatinine Glucose POC Glucose 112 H 127 H 127 H Calcium Phosphorus Magnesium ALT Alkaline Phosphatase Total Creatine Kinase CK-MB (CK-2) Rel Index Troponin T Albumin LDL Cholesterol Direct PTH Intact Salicylates Acetaminophen Crossmatch 02/27/19 02/27/19 02/27/19 04:35 13:15 18:02 WBC RBC Hgb Hct MCV MCH MCHC RDW Plt Count Lymph % (Auto) [place] % (Auto) Eos % (Auto) Baso % (Auto) Lymph # [place] # Eos # Baso # Seg Neutrophils % Seg Neuts % (Manual) Lymphocytes % (Manual) Eosinophils % (Manual) Seg Neutrophils # Lymphocytes # (Manual) Eosinophils # (Manual) PT INR D-Dimer POC ABG pH 7.483 H POC ABG pCO2 POC ABG pO2 61 L ABG pO2 ABG HCO3 ABG Base Excess ABG Hemoglobin Oxyhemoglobin Sodium Potassium Chloride Carbon Dioxide BUN Creatinine Glucose POC Glucose 143 H 106 H Calcium Phosphorus Magnesium ALT Alkaline Phosphatase Total Creatine Kinase CK-MB (CK-2) Rel Index Troponin T Albumin LDL Cholesterol Direct PTH Intact Salicylates Acetaminophen Crossmatch 02/28/19 02/28/19 02/28/19 05:50 11:59 17:52 WBC RBC Hgb Hct MCV MCH MCHC RDW Plt Count Lymph % (Auto) [place] % (Auto) Eos % (Auto) Baso % (Auto) Lymph # [place] # Eos # Baso # Seg Neutrophils % Seg Neuts % (Manual) Lymphocytes % (Manual) Eosinophils % (Manual) Seg Neutrophils # Lymphocytes # (Manual) Eosinophils # (Manual) PT INR D-Dimer POC ABG pH POC ABG pCO2 POC ABG pO2 ABG pO2 ABG HCO3 ABG Base Excess ABG Hemoglobin Oxyhemoglobin Sodium Potassium Chloride Carbon Dioxide BUN Creatinine Glucose POC Glucose 134 H 128 H 142 H Calcium Phosphorus Magnesium ALT Alkaline Phosphatase Total Creatine Kinase CK-MB (CK-2) Rel Index Troponin T Albumin LDL Cholesterol Direct PTH Intact Salicylates Acetaminophen Crossmatch 02/28/19 03/01/19 03/01/19 23:13 05:40 09:39 WBC RBC Hgb Hct MCV MCH MCHC RDW Plt Count Lymph % (Auto) [place] % (Auto) Eos % (Auto) Baso % (Auto) Lymph # [place] # Eos # Baso # Seg Neutrophils % Seg Neuts % (Manual) Lymphocytes % (Manual) Eosinophils % (Manual) Seg Neutrophils # Lymphocytes # (Manual) Eosinophils # (Manual) PT 16.3 H INR 1.35 H D-Dimer POC ABG pH POC ABG pCO2 POC ABG pO2 ABG pO2 ABG HCO3 ABG Base Excess ABG Hemoglobin Oxyhemoglobin Sodium Potassium Chloride Carbon Dioxide BUN Creatinine Glucose POC Glucose 112 H 111 H Calcium Phosphorus Magnesium ALT Alkaline Phosphatase Total Creatine Kinase CK-MB (CK-2) Rel Index Troponin T Albumin LDL Cholesterol Direct PTH Intact Salicylates Acetaminophen Crossmatch 03/01/19 03/01/19 03/01/19 11:56 13:54 17:59 WBC RBC Hgb Hct MCV MCH MCHC RDW Plt Count Lymph % (Auto) [place] % (Auto) Eos % (Auto) Baso % (Auto) Lymph # [place] # Eos # Baso # Seg Neutrophils % Seg Neuts % (Manual) Lymphocytes % (Manual) Eosinophils % (Manual) Seg Neutrophils # Lymphocytes # (Manual) Eosinophils # (Manual) PT INR D-Dimer POC ABG pH POC ABG pCO2 POC ABG pO2 ABG pO2 ABG HCO3 ABG Base Excess ABG Hemoglobin Oxyhemoglobin Sodium Potassium Chloride Carbon Dioxide BUN 33 H Creatinine 2.8 H D Glucose 176 H POC Glucose 199 H 147 H Calcium Phosphorus Magnesium ALT Alkaline Phosphatase Total Creatine Kinase CK-MB (CK-2) Rel Index Troponin T Albumin LDL Cholesterol Direct PTH Intact Salicylates Acetaminophen Crossmatch 03/02/19 03/02/19 03/02/19 05:15 05:15 05:15 WBC RBC 2.73 L Hgb 7.4 L Hct 23.0 L MCV MCH 27 L MCHC RDW 19.9 H Plt Count Lymph % (Auto) [place] % (Auto) 7.9 H Eos % (Auto) 7.6 H Baso % (Auto) Lymph # 1.0 L [place] # Eos # 0.5 H Baso # Seg Neutrophils % Seg Neuts % (Manual) Lymphocytes % (Manual) Eosinophils % (Manual) Seg Neutrophils # Lymphocytes # (Manual) Eosinophils # (Manual) PT INR D-Dimer POC ABG pH POC ABG pCO2 POC ABG pO2 ABG pO2 ABG HCO3 ABG Base Excess ABG Hemoglobin Oxyhemoglobin Sodium Potassium Chloride Carbon Dioxide BUN 43 H Creatinine 3.2 H Glucose POC Glucose Calcium Phosphorus 2.30 L Magnesium ALT Alkaline Phosphatase Total Creatine Kinase CK-MB (CK-2) Rel Index Troponin T Albumin LDL Cholesterol Direct PTH Intact 267.6 H Salicylates Acetaminophen Crossmatch 03/02/19 03/02/19 03/03/19 12:32 18:20 13:30 WBC RBC Hgb Hct MCV MCH MCHC RDW Plt Count Lymph % (Auto) [place] % (Auto) Eos % (Auto) Baso % (Auto) Lymph # [place] # Eos # Baso # Seg Neutrophils % Seg Neuts % (Manual) Lymphocytes % (Manual) Eosinophils % (Manual) Seg Neutrophils # Lymphocytes # (Manual) Eosinophils # (Manual) PT INR D-Dimer POC ABG pH POC ABG pCO2 POC ABG pO2 ABG pO2 ABG HCO3 ABG Base Excess ABG Hemoglobin Oxyhemoglobin Sodium Potassium Chloride 97.3 L Carbon Dioxide BUN 26 H Creatinine 2.2 H Glucose 73 L POC Glucose 111 H 156 H Calcium Phosphorus Magnesium ALT Alkaline Phosphatase Total Creatine Kinase CK-MB (CK-2) Rel Index Troponin T Albumin LDL Cholesterol Direct PTH Intact Salicylates Acetaminophen Crossmatch 03/04/19 03/04/19 03/04/19 00:02 05:37 05:40 WBC RBC 2.63 L Hgb 7.2 L Hct 22.2 L MCV MCH MCHC RDW 20.2 H Plt Count Lymph % (Auto) 10.5 L [place] % (Auto) Eos % (Auto) 4.6 H Baso % (Auto) Lymph # 0.7 L [place] # Eos # Baso # Seg Neutrophils % 76.9 H Seg Neuts % (Manual) Lymphocytes % (Manual) Eosinophils % (Manual) Seg Neutrophils # Lymphocytes # (Manual) Eosinophils # (Manual) PT INR D-Dimer POC ABG pH POC ABG pCO2 POC ABG pO2 ABG pO2 ABG HCO3 ABG Base Excess ABG Hemoglobin Oxyhemoglobin Sodium Potassium Chloride Carbon Dioxide BUN Creatinine Glucose POC Glucose 136 H 123 H Calcium Phosphorus Magnesium ALT Alkaline Phosphatase Total Creatine Kinase CK-MB (CK-2) Rel Index Troponin T Albumin LDL Cholesterol Direct PTH Intact Salicylates Acetaminophen Crossmatch 03/04/19 03/04/19 03/04/19 05:40 11:39 23:20 WBC RBC Hgb Hct MCV MCH MCHC RDW Plt Count Lymph % (Auto) [place] % (Auto) Eos % (Auto) Baso % (Auto) Lymph # [place] # Eos # Baso # Seg Neutrophils % Seg Neuts % (Manual) Lymphocytes % (Manual) Eosinophils % (Manual) Seg Neutrophils # Lymphocytes # (Manual) Eosinophils # (Manual) PT INR D-Dimer POC ABG pH POC ABG pCO2 POC ABG pO2 ABG pO2 ABG HCO3 ABG Base Excess ABG Hemoglobin Oxyhemoglobin Sodium Potassium Chloride Carbon Dioxide BUN 34 H Creatinine 2.7 H Glucose 114 H POC Glucose 175 H 151 H Calcium Phosphorus Magnesium ALT Alkaline Phosphatase Total Creatine Kinase CK-MB (CK-2) Rel Index Troponin T Albumin LDL Cholesterol Direct PTH Intact Salicylates Acetaminophen Crossmatch 03/05/19 03/05/19 03/05/19 05:37 12:08 17:11 WBC RBC Hgb Hct MCV MCH MCHC RDW Plt Count Lymph % (Auto) [place] % (Auto) Eos % (Auto) Baso % (Auto) Lymph # [place] # Eos # Baso # Seg Neutrophils % Seg Neuts % (Manual) Lymphocytes % (Manual) Eosinophils % (Manual) Seg Neutrophils # Lymphocytes # (Manual) Eosinophils # (Manual) PT INR D-Dimer POC ABG pH POC ABG pCO2 POC ABG pO2 ABG pO2 ABG HCO3 ABG Base Excess ABG Hemoglobin Oxyhemoglobin Sodium Potassium Chloride Carbon Dioxide BUN Creatinine Glucose POC Glucose 134 H 135 H 135 H Calcium Phosphorus Magnesium ALT Alkaline Phosphatase Total Creatine Kinase CK-MB (CK-2) Rel Index Troponin T Albumin LDL Cholesterol Direct PTH Intact Salicylates Acetaminophen Crossmatch 03/06/19 03/06/19 03/06/19 00:16 13:05 18:09 WBC RBC Hgb Hct MCV MCH MCHC RDW Plt Count Lymph % (Auto) [place] % (Auto) Eos % (Auto) Baso % (Auto) Lymph # [place] # Eos # Baso # Seg Neutrophils % Seg Neuts % (Manual) Lymphocytes % (Manual) Eosinophils % (Manual) Seg Neutrophils # Lymphocytes # (Manual) Eosinophils # (Manual) PT INR D-Dimer POC ABG pH POC ABG pCO2 POC ABG pO2 ABG pO2 ABG HCO3 ABG Base Excess ABG Hemoglobin Oxyhemoglobin Sodium Potassium Chloride Carbon Dioxide BUN Creatinine Glucose POC Glucose 117 H 113 H 131 H Calcium Phosphorus Magnesium ALT Alkaline Phosphatase Total Creatine Kinase CK-MB (CK-2) Rel Index Troponin T Albumin LDL Cholesterol Direct PTH Intact Salicylates Acetaminophen Crossmatch 03/07/19 03/08/19 03/08/19 05:25 05:33 16:00 WBC RBC 2.44 L Hgb 6.6 L Hct 20.8 L MCV MCH 27 L MCHC RDW 19.2 H Plt Count Lymph % (Auto) [place] % (Auto) Eos % (Auto) 8.6 H Baso % (Auto) Lymph # 0.8 L [place] # Eos # 0.5 H Baso # Seg Neutrophils % 70.7 H Seg Neuts % (Manual) Lymphocytes % (Manual) Eosinophils % (Manual) Seg Neutrophils # Lymphocytes # (Manual) Eosinophils # (Manual) PT INR D-Dimer POC ABG pH POC ABG pCO2 POC ABG pO2 ABG pO2 ABG HCO3 ABG Base Excess ABG Hemoglobin Oxyhemoglobin Sodium Potassium Chloride Carbon Dioxide BUN Creatinine Glucose POC Glucose 106 H 108 H Calcium Phosphorus Magnesium ALT Alkaline Phosphatase Total Creatine Kinase CK-MB (CK-2) Rel Index Troponin T Albumin LDL Cholesterol Direct PTH Intact Salicylates Acetaminophen Crossmatch 03/08/19 03/08/19 03/08/19 16:00 18:38 Unknown WBC RBC Hgb Hct MCV MCH MCHC RDW Plt Count Lymph % (Auto) [place] % (Auto) Eos % (Auto) Baso % (Auto) Lymph # [place] # Eos # Baso # Seg Neutrophils % Seg Neuts % (Manual) Lymphocytes % (Manual) Eosinophils % (Manual) Seg Neutrophils # Lymphocytes # (Manual) Eosinophils # (Manual) PT INR D-Dimer POC ABG pH POC ABG pCO2 POC ABG pO2 ABG pO2 ABG HCO3 ABG Base Excess ABG Hemoglobin Oxyhemoglobin Sodium Potassium 5.4 H D Chloride Carbon Dioxide BUN 47 H Creatinine 2.6 H Glucose POC Glucose 123 H Calcium Phosphorus Magnesium ALT < 5 L Alkaline Phosphatase Total Creatine Kinase CK-MB (CK-2) Rel Index Troponin T Albumin 2.2 L LDL Cholesterol Direct PTH Intact Salicylates Acetaminophen Crossmatch See Detail 03/09/19 03/09/19 03/09/19 10:48 12:28 13:53 WBC RBC 2.85 L Hgb 7.7 L Hct 24.2 L MCV MCH 27 L MCHC RDW 18.7 H Plt Count Lymph % (Auto) [place] % (Auto) Eos % (Auto) Baso % (Auto) Lymph # [place] # Eos # Baso # Seg Neutrophils % Seg Neuts % (Manual) Lymphocytes % (Manual) Eosinophils % (Manual) Seg Neutrophils # Lymphocytes # (Manual) Eosinophils # (Manual) PT INR D-Dimer POC ABG pH POC ABG pCO2 POC ABG pO2 ABG pO2 ABG HCO3 30.5 H ABG Base Excess 5.6 H ABG Hemoglobin 8.1 L Oxyhemoglobin 93.8 L Sodium Potassium Chloride Carbon Dioxide BUN Creatinine Glucose POC Glucose 114 H Calcium Phosphorus Magnesium ALT Alkaline Phosphatase Total Creatine Kinase CK-MB (CK-2) Rel Index Troponin T Albumin LDL Cholesterol Direct PTH Intact Salicylates Acetaminophen Crossmatch 03/09/19 03/09/19 03/10/19 17:58 23:53 12:01 WBC RBC Hgb Hct MCV MCH MCHC RDW Plt Count Lymph % (Auto) [place] % (Auto) Eos % (Auto) Baso % (Auto) Lymph # [place] # Eos # Baso # Seg Neutrophils % Seg Neuts % (Manual) Lymphocytes % (Manual) Eosinophils % (Manual) Seg Neutrophils # Lymphocytes # (Manual) Eosinophils # (Manual) PT INR D-Dimer POC ABG pH POC ABG pCO2 POC ABG pO2 ABG pO2 ABG HCO3 ABG Base Excess ABG Hemoglobin Oxyhemoglobin Sodium Potassium Chloride Carbon Dioxide BUN Creatinine Glucose POC Glucose 108 H 128 H 144 H Calcium Phosphorus Magnesium ALT Alkaline Phosphatase Total Creatine Kinase CK-MB (CK-2) Rel Index Troponin T Albumin LDL Cholesterol Direct PTH Intact Salicylates Acetaminophen Crossmatch 03/10/19 03/11/19 03/11/19 16:50 00:24 05:02 WBC RBC Hgb Hct MCV MCH MCHC RDW Plt Count Lymph % (Auto) [place] % (Auto) Eos % (Auto) Baso % (Auto) Lymph # [place] # Eos # Baso # Seg Neutrophils % Seg Neuts % (Manual) Lymphocytes % (Manual) Eosinophils % (Manual) Seg Neutrophils # Lymphocytes # (Manual) Eosinophils # (Manual) PT INR D-Dimer POC ABG pH POC ABG pCO2 POC ABG pO2 ABG pO2 ABG HCO3 ABG Base Excess ABG Hemoglobin Oxyhemoglobin Sodium Potassium Chloride Carbon Dioxide BUN Creatinine Glucose POC Glucose 147 H 123 H 120 H Calcium Phosphorus Magnesium ALT Alkaline Phosphatase Total Creatine Kinase CK-MB (CK-2) Rel Index Troponin T Albumin LDL Cholesterol Direct PTH Intact Salicylates Acetaminophen Crossmatch 03/11/19 03/11/19 03/11/19 11:56 12:20 18:37 WBC RBC Hgb Hct MCV MCH MCHC RDW Plt Count Lymph % (Auto) [place] % (Auto) Eos % (Auto) Baso % (Auto) Lymph # [place] # Eos # Baso # Seg Neutrophils % Seg Neuts % (Manual) Lymphocytes % (Manual) Eosinophils % (Manual) Seg Neutrophils # Lymphocytes # (Manual) Eosinophils # (Manual) PT INR D-Dimer POC ABG pH POC ABG pCO2 POC ABG pO2 ABG pO2 ABG HCO3 ABG Base Excess ABG Hemoglobin Oxyhemoglobin Sodium Potassium 5.2 H Chloride Carbon Dioxide BUN Creatinine Glucose POC Glucose 123 H 125 H Calcium Phosphorus Magnesium ALT Alkaline Phosphatase Total Creatine Kinase CK-MB (CK-2) Rel Index Troponin T Albumin LDL Cholesterol Direct PTH Intact Salicylates Acetaminophen Crossmatch 03/11/19 03/12/19 03/12/19 22:52 12:04 18:25 WBC RBC Hgb Hct MCV MCH MCHC RDW Plt Count Lymph % (Auto) [place] % (Auto) Eos % (Auto) Baso % (Auto) Lymph # [place] # Eos # Baso # Seg Neutrophils % Seg Neuts % (Manual) Lymphocytes % (Manual) Eosinophils % (Manual) Seg Neutrophils # Lymphocytes # (Manual) Eosinophils # (Manual) PT INR D-Dimer POC ABG pH POC ABG pCO2 POC ABG pO2 ABG pO2 ABG HCO3 ABG Base Excess ABG Hemoglobin Oxyhemoglobin Sodium Potassium Chloride Carbon Dioxide BUN Creatinine Glucose POC Glucose 110 H 106 H 118 H Calcium Phosphorus Magnesium ALT Alkaline Phosphatase Total Creatine Kinase CK-MB (CK-2) Rel Index Troponin T Albumin LDL Cholesterol Direct PTH Intact Salicylates Acetaminophen Crossmatch 03/12/19 03/13/19 03/13/19 23:36 04:38 04:38 WBC RBC 2.95 L Hgb 7.9 L Hct 24.9 L MCV MCH 27 L MCHC RDW 19.9 H Plt Count Lymph % (Auto) 11.1 L [place] % (Auto) 8.1 H Eos % (Auto) 4.4 H Baso % (Auto) Lymph # 0.9 L [place] # Eos # Baso # Seg Neutrophils % 75.4 H Seg Neuts % (Manual) Lymphocytes % (Manual) Eosinophils % (Manual) Seg Neutrophils # Lymphocytes # (Manual) Eosinophils # (Manual) PT INR D-Dimer POC ABG pH POC ABG pCO2 POC ABG pO2 ABG pO2 ABG HCO3 ABG Base Excess ABG Hemoglobin Oxyhemoglobin Sodium 136 L Potassium 5.1 H Chloride 93.8 L Carbon Dioxide BUN 48 H Creatinine 2.7 H Glucose 102 H POC Glucose 115 H Calcium Phosphorus Magnesium ALT < 5 L Alkaline Phosphatase 143 H Total Creatine Kinase CK-MB (CK-2) Rel Index Troponin T Albumin 2.5 L LDL Cholesterol Direct PTH Intact Salicylates Acetaminophen Crossmatch 03/13/19 03/13/19 03/13/19 05:33 13:37 18:03 WBC RBC Hgb Hct MCV MCH MCHC RDW Plt Count Lymph % (Auto) [place] % (Auto) Eos % (Auto) Baso % (Auto) Lymph # [place] # Eos # Baso # Seg Neutrophils % Seg Neuts % (Manual) Lymphocytes % (Manual) Eosinophils % (Manual) Seg Neutrophils # Lymphocytes # (Manual) Eosinophils # (Manual) PT INR D-Dimer POC ABG pH POC ABG pCO2 POC ABG pO2 ABG pO2 ABG HCO3 ABG Base Excess ABG Hemoglobin Oxyhemoglobin Sodium Potassium Chloride Carbon Dioxide BUN Creatinine Glucose POC Glucose 140 H 150 H 158 H Calcium Phosphorus Magnesium ALT Alkaline Phosphatase Total Creatine Kinase CK-MB (CK-2) Rel Index Troponin T Albumin LDL Cholesterol Direct PTH Intact Salicylates Acetaminophen Crossmatch 03/13/19 03/14/19 03/14/19 23:32 05:24 12:20 WBC RBC Hgb Hct MCV MCH MCHC RDW Plt Count Lymph % (Auto) [place] % (Auto) Eos % (Auto) Baso % (Auto) Lymph # [place] # Eos # Baso # Seg Neutrophils % Seg Neuts % (Manual) Lymphocytes % (Manual) Eosinophils % (Manual) Seg Neutrophils # Lymphocytes # (Manual) Eosinophils # (Manual) PT INR D-Dimer POC ABG pH POC ABG pCO2 POC ABG pO2 ABG pO2 ABG HCO3 ABG Base Excess ABG Hemoglobin Oxyhemoglobin Sodium Potassium Chloride Carbon Dioxide BUN Creatinine Glucose POC Glucose 162 H 146 H 127 H Calcium Phosphorus Magnesium ALT Alkaline Phosphatase Total Creatine Kinase CK-MB (CK-2) Rel Index Troponin T Albumin LDL Cholesterol Direct PTH Intact Salicylates Acetaminophen Crossmatch 03/14/19 03/14/19 03/15/19 18:05 23:57 04:38 WBC 12.8 H RBC 3.11 L Hgb 8.1 L Hct 26.5 L MCV MCH 26 L MCHC 31 L RDW 19.7 H Plt Count Lymph % (Auto) 4.4 L [place] % (Auto) 7.4 H Eos % (Auto) Baso % (Auto) Lymph # 0.6 L [place] # 0.9 H Eos # Baso # Seg Neutrophils % 87.3 H Seg Neuts % (Manual) Lymphocytes % (Manual) Eosinophils % (Manual) Seg Neutrophils # 11.2 H Lymphocytes # (Manual) Eosinophils # (Manual) PT INR D-Dimer POC ABG pH POC ABG pCO2 POC ABG pO2 ABG pO2 ABG HCO3 ABG Base Excess ABG Hemoglobin Oxyhemoglobin Sodium Potassium Chloride Carbon Dioxide BUN Creatinine Glucose POC Glucose 142 H 155 H Calcium Phosphorus Magnesium ALT Alkaline Phosphatase Total Creatine Kinase CK-MB (CK-2) Rel Index Troponin T Albumin LDL Cholesterol Direct PTH Intact Salicylates Acetaminophen Crossmatch 03/15/19 03/15/19 03/15/19 04:38 05:31 11:32 WBC RBC Hgb Hct MCV MCH MCHC RDW Plt Count Lymph % (Auto) [place] % (Auto) Eos % (Auto) Baso % (Auto) Lymph # [place] # Eos # Baso # Seg Neutrophils % Seg Neuts % (Manual) Lymphocytes % (Manual) Eosinophils % (Manual) Seg Neutrophils # Lymphocytes # (Manual) Eosinophils # (Manual) PT INR D-Dimer POC ABG pH POC ABG pCO2 POC ABG pO2 ABG pO2 ABG HCO3 ABG Base Excess ABG Hemoglobin Oxyhemoglobin Sodium 135 L Potassium Chloride 91.9 L Carbon Dioxide BUN 54 H Creatinine 2.8 H Glucose 128 H POC Glucose 160 H 109 H Calcium 11.1 H Phosphorus Magnesium ALT Alkaline Phosphatase 161 H Total Creatine Kinase CK-MB (CK-2) Rel Index Troponin T Albumin 2.3 L LDL Cholesterol Direct PTH Intact Salicylates Acetaminophen Crossmatch 03/15/19 03/15/19 03/16/19 18:15 23:41 05:40 WBC RBC Hgb Hct MCV MCH MCHC RDW Plt Count Lymph % (Auto) [place] % (Auto) Eos % (Auto) Baso % (Auto) Lymph # [place] # Eos # Baso # Seg Neutrophils % Seg Neuts % (Manual) Lymphocytes % (Manual) Eosinophils % (Manual) Seg Neutrophils # Lymphocytes # (Manual) Eosinophils # (Manual) PT INR D-Dimer POC ABG pH POC ABG pCO2 POC ABG pO2 ABG pO2 ABG HCO3 ABG Base Excess ABG Hemoglobin Oxyhemoglobin Sodium Potassium Chloride Carbon Dioxide BUN Creatinine Glucose POC Glucose 151 H 110 H 163 H Calcium Phosphorus Magnesium ALT Alkaline Phosphatase Total Creatine Kinase CK-MB (CK-2) Rel Index Troponin T Albumin LDL Cholesterol Direct PTH Intact Salicylates Acetaminophen Crossmatch 03/16/19 03/16/19 03/16/19 11:55 17:04 23:58 WBC RBC Hgb Hct MCV MCH MCHC RDW Plt Count Lymph % (Auto) [place] % (Auto) Eos % (Auto) Baso % (Auto) Lymph # [place] # Eos # Baso # Seg Neutrophils % Seg Neuts % (Manual) Lymphocytes % (Manual) Eosinophils % (Manual) Seg Neutrophils # Lymphocytes # (Manual) Eosinophils # (Manual) PT INR D-Dimer POC ABG pH POC ABG pCO2 POC ABG pO2 ABG pO2 ABG HCO3 ABG Base Excess ABG Hemoglobin Oxyhemoglobin Sodium Potassium Chloride Carbon Dioxide BUN Creatinine Glucose POC Glucose 114 H 147 H 192 H Calcium Phosphorus Magnesium ALT Alkaline Phosphatase Total Creatine Kinase CK-MB (CK-2) Rel Index Troponin T Albumin LDL Cholesterol Direct PTH Intact Salicylates Acetaminophen Crossmatch 03/17/19 03/17/19 03/17/19 05:53 11:17 17:01 WBC RBC Hgb Hct MCV MCH MCHC RDW Plt Count Lymph % (Auto) [place] % (Auto) Eos % (Auto) Baso % (Auto) Lymph # [place] # Eos # Baso # Seg Neutrophils % Seg Neuts % (Manual) Lymphocytes % (Manual) Eosinophils % (Manual) Seg Neutrophils # Lymphocytes # (Manual) Eosinophils # (Manual) PT INR D-Dimer POC ABG pH POC ABG pCO2 POC ABG pO2 ABG pO2 ABG HCO3 ABG Base Excess ABG Hemoglobin Oxyhemoglobin Sodium Potassium Chloride Carbon Dioxide BUN Creatinine Glucose POC Glucose 151 H 161 H 152 H Calcium Phosphorus Magnesium ALT Alkaline Phosphatase Total Creatine Kinase CK-MB (CK-2) Rel Index Troponin T Albumin LDL Cholesterol Direct PTH Intact Salicylates Acetaminophen Crossmatch 03/17/19 03/18/19 03/18/19 21:47 04:15 04:44 WBC RBC Hgb Hct MCV MCH MCHC RDW Plt Count Lymph % (Auto) [place] % (Auto) Eos % (Auto) Baso % (Auto) Lymph # [place] # Eos # Baso # Seg Neutrophils % Seg Neuts % (Manual) Lymphocytes % (Manual) Eosinophils % (Manual) Seg Neutrophils # Lymphocytes # (Manual) Eosinophils # (Manual) PT INR D-Dimer POC ABG pH POC ABG pCO2 POC ABG pO2 ABG pO2 102.8 H ABG HCO3 28.3 H ABG Base Excess ABG Hemoglobin 10.4 L Oxyhemoglobin 94.5 L Sodium Potassium Chloride Carbon Dioxide BUN Creatinine Glucose POC Glucose 170 H 150 H Calcium Phosphorus Magnesium ALT Alkaline Phosphatase Total Creatine Kinase CK-MB (CK-2) Rel Index Troponin T Albumin LDL Cholesterol Direct PTH Intact Salicylates Acetaminophen Crossmatch 03/18/19 03/18/19 03/18/19 06:38 12:12 17:47 WBC RBC Hgb Hct MCV MCH MCHC RDW Plt Count Lymph % (Auto) [place] % (Auto) Eos % (Auto) Baso % (Auto) Lymph # [place] # Eos # Baso # Seg Neutrophils % Seg Neuts % (Manual) Lymphocytes % (Manual) Eosinophils % (Manual) Seg Neutrophils # Lymphocytes # (Manual) Eosinophils # (Manual) PT INR D-Dimer POC ABG pH 7.510 H POC ABG pCO2 POC ABG pO2 164 H ABG pO2 ABG HCO3 ABG Base Excess ABG Hemoglobin Oxyhemoglobin Sodium Potassium Chloride Carbon Dioxide BUN Creatinine Glucose POC Glucose 145 H 149 H Calcium Phosphorus Magnesium ALT Alkaline Phosphatase Total Creatine Kinase CK-MB (CK-2) Rel Index Troponin T Albumin LDL Cholesterol Direct PTH Intact Salicylates Acetaminophen Crossmatch 03/18/19 03/19/19 03/19/19 23:25 01:11 04:23 WBC 15.6 H RBC 2.51 L Hgb 6.5 L Hct 21.6 L MCV MCH 26 L MCHC 30 L RDW 19.8 H Plt Count Lymph % (Auto) 6.0 L [place] % (Auto) Eos % (Auto) Baso % (Auto) Lymph # 0.9 L [place] # 1.0 H Eos # Baso # Seg Neutrophils % 85.5 H Seg Neuts % (Manual) Lymphocytes % (Manual) Eosinophils % (Manual) Seg Neutrophils # 13.4 H Lymphocytes # (Manual) Eosinophils # (Manual) PT INR D-Dimer POC ABG pH POC ABG pCO2 POC ABG pO2 ABG pO2 78.3 L ABG HCO3 30.7 H ABG Base Excess 5.8 H ABG Hemoglobin 5.8 L Oxyhemoglobin 94.6 L Sodium Potassium Chloride Carbon Dioxide BUN Creatinine Glucose POC Glucose 190 H Calcium Phosphorus Magnesium ALT Alkaline Phosphatase Total Creatine Kinase CK-MB (CK-2) Rel Index Troponin T Albumin LDL Cholesterol Direct PTH Intact Salicylates Acetaminophen Crossmatch 03/19/19 03/19/19 03/19/19 05:22 05:35 08:54 WBC RBC Hgb Hct MCV MCH MCHC RDW Plt Count Lymph % (Auto) [place] % (Auto) Eos % (Auto) Baso % (Auto) Lymph # [place] # Eos # Baso # Seg Neutrophils % Seg Neuts % (Manual) Lymphocytes % (Manual) Eosinophils % (Manual) Seg Neutrophils # Lymphocytes # (Manual) Eosinophils # (Manual) PT INR D-Dimer POC ABG pH POC ABG pCO2 POC ABG pO2 ABG pO2 ABG HCO3 ABG Base Excess ABG Hemoglobin Oxyhemoglobin Sodium Potassium Chloride Carbon Dioxide BUN Creatinine Glucose POC Glucose 167 H Calcium Phosphorus Magnesium ALT Alkaline Phosphatase Total Creatine Kinase CK-MB (CK-2) Rel Index Troponin T Albumin LDL Cholesterol Direct PTH Intact Salicylates Acetaminophen Crossmatch See Detail See Detail 03/19/19 03/19/19 03/19/19 12:36 17:02 23:25 WBC RBC Hgb Hct MCV MCH MCHC RDW Plt Count Lymph % (Auto) [place] % (Auto) Eos % (Auto) Baso % (Auto) Lymph # [place] # Eos # Baso # Seg Neutrophils % Seg Neuts % (Manual) Lymphocytes % (Manual) Eosinophils % (Manual) Seg Neutrophils # Lymphocytes # (Manual) Eosinophils # (Manual) PT INR D-Dimer POC ABG pH POC ABG pCO2 POC ABG pO2 ABG pO2 ABG HCO3 ABG Base Excess ABG Hemoglobin Oxyhemoglobin Sodium Potassium Chloride Carbon Dioxide BUN Creatinine Glucose POC Glucose 167 H 135 H 136 H Calcium Phosphorus Magnesium ALT Alkaline Phosphatase Total Creatine Kinase CK-MB (CK-2) Rel Index Troponin T Albumin LDL Cholesterol Direct PTH Intact Salicylates Acetaminophen Crossmatch 03/20/19 03/20/19 03/20/19 05:38 08:40 08:40 WBC RBC 2.61 L Hgb 7.1 L Hct 22.0 L MCV MCH 27 L MCHC RDW 19.6 H Plt Count Lymph % (Auto) 8.2 L [place] % (Auto) 8.3 H Eos % (Auto) 5.7 H Baso % (Auto) Lymph # 0.8 L [place] # Eos # 0.5 H Baso # Seg Neutrophils % 77.3 H Seg Neuts % (Manual) Lymphocytes % (Manual) Eosinophils % (Manual) Seg Neutrophils # Lymphocytes # (Manual) Eosinophils # (Manual) PT INR D-Dimer POC ABG pH POC ABG pCO2 POC ABG pO2 ABG pO2 ABG HCO3 ABG Base Excess ABG Hemoglobin Oxyhemoglobin Sodium Potassium Chloride 95.9 L Carbon Dioxide BUN 69 H Creatinine 2.8 H Glucose 115 H POC Glucose 134 H Calcium 10.5 H Phosphorus Magnesium ALT Alkaline Phosphatase Total Creatine Kinase CK-MB (CK-2) Rel Index Troponin T Albumin LDL Cholesterol Direct PTH Intact Salicylates Acetaminophen Crossmatch 03/20/19 03/20/19 03/20/19 12:13 18:04 23:49 WBC RBC Hgb Hct MCV MCH MCHC RDW Plt Count Lymph % (Auto) [place] % (Auto) Eos % (Auto) Baso % (Auto) Lymph # [place] # Eos # Baso # Seg Neutrophils % Seg Neuts % (Manual) Lymphocytes % (Manual) Eosinophils % (Manual) Seg Neutrophils # Lymphocytes # (Manual) Eosinophils # (Manual) PT INR D-Dimer POC ABG pH POC ABG pCO2 POC ABG pO2 ABG pO2 ABG HCO3 ABG Base Excess ABG Hemoglobin Oxyhemoglobin Sodium Potassium Chloride Carbon Dioxide BUN Creatinine Glucose POC Glucose 144 H 165 H 172 H Calcium Phosphorus Magnesium ALT Alkaline Phosphatase Total Creatine Kinase CK-MB (CK-2) Rel Index Troponin T Albumin LDL Cholesterol Direct PTH Intact Salicylates Acetaminophen Crossmatch 03/21/19 03/21/19 03/21/19 05:00 06:29 06:30 WBC RBC 2.72 L Hgb 7.4 L Hct 22.9 L MCV MCH 27 L MCHC RDW 19.4 H Plt Count Lymph % (Auto) [place] % (Auto) Eos % (Auto) Baso % (Auto) Lymph # [place] # Eos # Baso # Seg Neutrophils % Seg Neuts % (Manual) 81.0 H Lymphocytes % (Manual) 8.0 L Eosinophils % (Manual) 8.0 H Seg Neutrophils # Lymphocytes # (Manual) 0.7 L Eosinophils # (Manual) 0.7 H PT INR D-Dimer POC ABG pH POC ABG pCO2 POC ABG pO2 ABG pO2 ABG HCO3 ABG Base Excess ABG Hemoglobin Oxyhemoglobin Sodium Potassium Chloride Carbon Dioxide 33 H BUN 43 H Creatinine 1.7 H Glucose 145 H POC Glucose 156 H Calcium Phosphorus Magnesium ALT Alkaline Phosphatase 212 H Total Creatine Kinase CK-MB (CK-2) Rel Index Troponin T Albumin 2.2 L LDL Cholesterol Direct PTH Intact Salicylates Acetaminophen Crossmatch 03/21/19 03/21/19 03/22/19 12:02 18:07 00:21 WBC RBC Hgb Hct MCV MCH MCHC RDW Plt Count Lymph % (Auto) [place] % (Auto) Eos % (Auto) Baso % (Auto) Lymph # [place] # Eos # Baso # Seg Neutrophils % Seg Neuts % (Manual) Lymphocytes % (Manual) Eosinophils % (Manual) Seg Neutrophils # Lymphocytes # (Manual) Eosinophils # (Manual) PT INR D-Dimer POC ABG pH POC ABG pCO2 POC ABG pO2 ABG pO2 ABG HCO3 ABG Base Excess ABG Hemoglobin Oxyhemoglobin Sodium Potassium Chloride Carbon Dioxide BUN Creatinine Glucose POC Glucose 163 H 144 H 153 H Calcium Phosphorus Magnesium ALT Alkaline Phosphatase Total Creatine Kinase CK-MB (CK-2) Rel Index Troponin T Albumin LDL Cholesterol Direct PTH Intact Salicylates Acetaminophen Crossmatch 03/22/19 03/22/19 03/22/19 05:23 05:23 05:31 WBC RBC 2.58 L Hgb 7.1 L Hct 21.8 L MCV MCH 27 L MCHC RDW 19.2 H Plt Count Lymph % (Auto) [place] % (Auto) Eos % (Auto) Baso % (Auto) Lymph # [place] # Eos # Baso # Seg Neutrophils % Seg Neuts % (Manual) Lymphocytes % (Manual) Eosinophils % (Manual) Seg Neutrophils # Lymphocytes # (Manual) Eosinophils # (Manual) PT INR D-Dimer POC ABG pH POC ABG pCO2 POC ABG pO2 ABG pO2 ABG HCO3 ABG Base Excess ABG Hemoglobin Oxyhemoglobin Sodium 147 H Potassium Chloride Carbon Dioxide BUN 68 H Creatinine 2.5 H Glucose POC Glucose 116 H Calcium 10.3 H Phosphorus Magnesium ALT Alkaline Phosphatase Total Creatine Kinase CK-MB (CK-2) Rel Index Troponin T Albumin LDL Cholesterol Direct PTH Intact Salicylates Acetaminophen Crossmatch 03/22/19 03/22/19 03/22/19 08:48 12:37 17:35 WBC RBC Hgb Hct MCV MCH MCHC RDW Plt Count Lymph % (Auto) [place] % (Auto) Eos % (Auto) Baso % (Auto) Lymph # [place] # Eos # Baso # Seg Neutrophils % Seg Neuts % (Manual) Lymphocytes % (Manual) Eosinophils % (Manual) Seg Neutrophils # Lymphocytes # (Manual) Eosinophils # (Manual) PT INR D-Dimer POC ABG pH POC ABG pCO2 POC ABG pO2 ABG pO2 ABG HCO3 ABG Base Excess ABG Hemoglobin Oxyhemoglobin Sodium Potassium Chloride Carbon Dioxide BUN Creatinine Glucose POC Glucose 143 H 155 H Calcium Phosphorus Magnesium ALT Alkaline Phosphatase Total Creatine Kinase CK-MB (CK-2) Rel Index Troponin T Albumin LDL Cholesterol Direct PTH Intact Salicylates Acetaminophen Crossmatch See Detail 03/23/19 03/23/19 03/23/19 00:07 04:00 04:00 WBC 11.2 H RBC 2.32 L Hgb 6.4 L Hct 19.7 L* MCV MCH MCHC RDW 19.4 H Plt Count Lymph % (Auto) [place] % (Auto) Eos % (Auto) Baso % (Auto) Lymph # [place] # Eos # Baso # Seg Neutrophils % Seg Neuts % (Manual) Lymphocytes % (Manual) Eosinophils % (Manual) Seg Neutrophils # Lymphocytes # (Manual) Eosinophils # (Manual) PT INR D-Dimer POC ABG pH POC ABG pCO2 POC ABG pO2 ABG pO2 ABG HCO3 ABG Base Excess ABG Hemoglobin Oxyhemoglobin Sodium 147 H Potassium 5.2 H Chloride Carbon Dioxide BUN 86 H Creatinine 3.2 H Glucose 128 H POC Glucose 135 H Calcium 10.3 H Phosphorus Magnesium ALT Alkaline Phosphatase Total Creatine Kinase CK-MB (CK-2) Rel Index Troponin T Albumin LDL Cholesterol Direct PTH Intact Salicylates Acetaminophen Crossmatch 03/23/19 03/23/19 03/23/19 05:21 11:36 11:36 WBC RBC Hgb 7.9 L Hct 25.0 L MCV MCH MCHC RDW Plt Count Lymph % (Auto) [place] % (Auto) Eos % (Auto) Baso % (Auto) Lymph # [place] # Eos # Baso # Seg Neutrophils % Seg Neuts % (Manual) Lymphocytes % (Manual) Eosinophils % (Manual) Seg Neutrophils # Lymphocytes # (Manual) Eosinophils # (Manual) PT INR D-Dimer POC ABG pH POC ABG pCO2 POC ABG pO2 ABG pO2 ABG HCO3 ABG Base Excess ABG Hemoglobin Oxyhemoglobin Sodium Potassium Chloride Carbon Dioxide BUN Creatinine Glucose POC Glucose 132 H 147 H Calcium Phosphorus Magnesium ALT Alkaline Phosphatase Total Creatine Kinase CK-MB (CK-2) Rel Index Troponin T Albumin LDL Cholesterol Direct PTH Intact Salicylates Acetaminophen Crossmatch 03/23/19 03/24/19 03/24/19 17:31 01:22 04:20 WBC 12.2 H RBC 3.05 L Hgb 8.3 L Hct 25.9 L MCV MCH 27 L MCHC RDW 18.7 H Plt Count Lymph % (Auto) [place] % (Auto) Eos % (Auto) Baso % (Auto) Lymph # [place] # Eos # Baso # Seg Neutrophils % Seg Neuts % (Manual) Lymphocytes % (Manual) Eosinophils % (Manual) Seg Neutrophils # Lymphocytes # (Manual) Eosinophils # (Manual) PT INR D-Dimer POC ABG pH POC ABG pCO2 POC ABG pO2 ABG pO2 ABG HCO3 ABG Base Excess ABG Hemoglobin Oxyhemoglobin Sodium Potassium Chloride Carbon Dioxide BUN Creatinine Glucose POC Glucose 182 H 113 H Calcium Phosphorus Magnesium ALT Alkaline Phosphatase Total Creatine Kinase CK-MB (CK-2) Rel Index Troponin T Albumin LDL Cholesterol Direct PTH Intact Salicylates Acetaminophen Crossmatch 03/24/19 03/24/19 03/24/19 04:20 11:59 18:14 WBC RBC Hgb Hct MCV MCH MCHC RDW Plt Count Lymph % (Auto) [place] % (Auto) Eos % (Auto) Baso % (Auto) Lymph # [place] # Eos # Baso # Seg Neutrophils % Seg Neuts % (Manual) Lymphocytes % (Manual) Eosinophils % (Manual) Seg Neutrophils # Lymphocytes # (Manual) Eosinophils # (Manual) PT INR D-Dimer POC ABG pH POC ABG pCO2 POC ABG pO2 ABG pO2 ABG HCO3 ABG Base Excess ABG Hemoglobin Oxyhemoglobin Sodium Potassium Chloride 94.8 L Carbon Dioxide 32 H BUN 53 H Creatinine 2.3 H Glucose POC Glucose 163 H 134 H Calcium Phosphorus Magnesium ALT Alkaline Phosphatase Total Creatine Kinase CK-MB (CK-2) Rel Index Troponin T Albumin LDL Cholesterol Direct PTH Intact Salicylates Acetaminophen Crossmatch 03/24/19 03/25/19 03/25/19 23:15 05:52 12:02 WBC RBC Hgb Hct MCV MCH MCHC RDW Plt Count Lymph % (Auto) [place] % (Auto) Eos % (Auto) Baso % (Auto) Lymph # [place] # Eos # Baso # Seg Neutrophils % Seg Neuts % (Manual) Lymphocytes % (Manual) Eosinophils % (Manual) Seg Neutrophils # Lymphocytes # (Manual) Eosinophils # (Manual) PT INR D-Dimer POC ABG pH POC ABG pCO2 POC ABG pO2 ABG pO2 ABG HCO3 ABG Base Excess ABG Hemoglobin Oxyhemoglobin Sodium Potassium Chloride Carbon Dioxide BUN Creatinine Glucose POC Glucose 129 H 123 H 125 H Calcium Phosphorus Magnesium ALT Alkaline Phosphatase Total Creatine Kinase CK-MB (CK-2) Rel Index Troponin T Albumin LDL Cholesterol Direct PTH Intact Salicylates Acetaminophen Crossmatch 03/25/19 03/26/19 03/26/19 17:27 00:30 05:35 WBC RBC 3.01 L Hgb 8.1 L Hct 25.7 L MCV MCH 27 L MCHC RDW 19.2 H Plt Count Lymph % (Auto) 11.4 L [place] % (Auto) Eos % (Auto) 8.0 H Baso % (Auto) Lymph # 1.0 L [place] # Eos # 0.7 H Baso # Seg Neutrophils % 73.9 H Seg Neuts % (Manual) Lymphocytes % (Manual) Eosinophils % (Manual) Seg Neutrophils # Lymphocytes # (Manual) Eosinophils # (Manual) PT INR D-Dimer POC ABG pH POC ABG pCO2 POC ABG pO2 ABG pO2 ABG HCO3 ABG Base Excess ABG Hemoglobin Oxyhemoglobin Sodium Potassium Chloride Carbon Dioxide BUN Creatinine Glucose POC Glucose 130 H 129 H Calcium Phosphorus Magnesium ALT Alkaline Phosphatase Total Creatine Kinase CK-MB (CK-2) Rel Index Troponin T Albumin LDL Cholesterol Direct PTH Intact Salicylates Acetaminophen Crossmatch 03/26/19 03/26/19 03/26/19 05:35 05:45 12:16 WBC RBC Hgb Hct MCV MCH MCHC RDW Plt Count Lymph % (Auto) [place] % (Auto) Eos % (Auto) Baso % (Auto) Lymph # [place] # Eos # Baso # Seg Neutrophils % Seg Neuts % (Manual) Lymphocytes % (Manual) Eosinophils % (Manual) Seg Neutrophils # Lymphocytes # (Manual) Eosinophils # (Manual) PT INR D-Dimer POC ABG pH POC ABG pCO2 POC ABG pO2 ABG pO2 ABG HCO3 ABG Base Excess ABG Hemoglobin Oxyhemoglobin Sodium Potassium Chloride 94.9 L Carbon Dioxide 31 H BUN 44 H Creatinine 2.0 H Glucose POC Glucose 118 H 107 H Calcium Phosphorus Magnesium ALT Alkaline Phosphatase Total Creatine Kinase CK-MB (CK-2) Rel Index Troponin T Albumin LDL Cholesterol Direct PTH Intact Salicylates Acetaminophen Crossmatch 03/26/19 03/27/19 03/27/19 17:56 00:36 05:37 WBC RBC Hgb Hct MCV MCH MCHC RDW Plt Count Lymph % (Auto) [place] % (Auto) Eos % (Auto) Baso % (Auto) Lymph # [place] # Eos # Baso # Seg Neutrophils % Seg Neuts % (Manual) Lymphocytes % (Manual) Eosinophils % (Manual) Seg Neutrophils # Lymphocytes # (Manual) Eosinophils # (Manual) PT INR D-Dimer POC ABG pH POC ABG pCO2 POC ABG pO2 ABG pO2 ABG HCO3 ABG Base Excess ABG Hemoglobin Oxyhemoglobin Sodium Potassium Chloride Carbon Dioxide BUN Creatinine Glucose POC Glucose 107 H 110 H 122 H Calcium Phosphorus Magnesium ALT Alkaline Phosphatase Total Creatine Kinase CK-MB (CK-2) Rel Index Troponin T Albumin LDL Cholesterol Direct PTH Intact Salicylates Acetaminophen Crossmatch 03/27/19 03/27/19 03/28/19 11:22 18:00 05:17 WBC RBC Hgb Hct MCV MCH MCHC RDW Plt Count Lymph % (Auto) [place] % (Auto) Eos % (Auto) Baso % (Auto) Lymph # [place] # Eos # Baso # Seg Neutrophils % Seg Neuts % (Manual) Lymphocytes % (Manual) Eosinophils % (Manual) Seg Neutrophils # Lymphocytes # (Manual) Eosinophils # (Manual) PT INR D-Dimer POC ABG pH POC ABG pCO2 POC ABG pO2 ABG pO2 ABG HCO3 ABG Base Excess ABG Hemoglobin Oxyhemoglobin Sodium Potassium Chloride Carbon Dioxide BUN Creatinine Glucose POC Glucose 120 H 111 H 107 H Calcium Phosphorus Magnesium ALT Alkaline Phosphatase Total Creatine Kinase CK-MB (CK-2) Rel Index Troponin T Albumin LDL Cholesterol Direct PTH Intact Salicylates Acetaminophen Crossmatch 03/28/19 03/28/19 03/29/19 12:27 18:08 05:47 WBC RBC Hgb Hct MCV MCH MCHC RDW Plt Count Lymph % (Auto) [place] % (Auto) Eos % (Auto) Baso % (Auto) Lymph # [place] # Eos # Baso # Seg Neutrophils % Seg Neuts % (Manual) Lymphocytes % (Manual) Eosinophils % (Manual) Seg Neutrophils # Lymphocytes # (Manual) Eosinophils # (Manual) PT INR D-Dimer POC ABG pH POC ABG pCO2 POC ABG pO2 ABG pO2 ABG HCO3 ABG Base Excess ABG Hemoglobin Oxyhemoglobin Sodium Potassium Chloride Carbon Dioxide BUN Creatinine Glucose POC Glucose 114 H 121 H 112 H Calcium Phosphorus Magnesium ALT Alkaline Phosphatase Total Creatine Kinase CK-MB (CK-2) Rel Index Troponin T Albumin LDL Cholesterol Direct PTH Intact Salicylates Acetaminophen Crossmatch 03/29/19 03/29/19 03/30/19 12:14 18:08 00:31 WBC RBC Hgb Hct MCV MCH MCHC RDW Plt Count Lymph % (Auto) [place] % (Auto) Eos % (Auto) Baso % (Auto) Lymph # [place] # Eos # Baso # Seg Neutrophils % Seg Neuts % (Manual) Lymphocytes % (Manual) Eosinophils % (Manual) Seg Neutrophils # Lymphocytes # (Manual) Eosinophils # (Manual) PT INR D-Dimer POC ABG pH POC ABG pCO2 POC ABG pO2 ABG pO2 ABG HCO3 ABG Base Excess ABG Hemoglobin Oxyhemoglobin Sodium Potassium Chloride Carbon Dioxide BUN Creatinine Glucose POC Glucose 117 H 140 H 114 H Calcium Phosphorus Magnesium ALT Alkaline Phosphatase Total Creatine Kinase CK-MB (CK-2) Rel Index Troponin T Albumin LDL Cholesterol Direct PTH Intact Salicylates Acetaminophen Crossmatch 03/30/19 03/30/19 03/30/19 10:13 10:13 23:53 WBC RBC 2.81 L Hgb 7.7 L Hct 24.3 L MCV MCH 27 L MCHC RDW 19.0 H Plt Count Lymph % (Auto) 12.2 L [place] % (Auto) Eos % (Auto) 7.9 H Baso % (Auto) Lymph # 1.0 L [place] # Eos # 0.6 H Baso # Seg Neutrophils % 72.3 H Seg Neuts % (Manual) Lymphocytes % (Manual) Eosinophils % (Manual) Seg Neutrophils # Lymphocytes # (Manual) Eosinophils # (Manual) PT INR D-Dimer POC ABG pH POC ABG pCO2 POC ABG pO2 ABG pO2 ABG HCO3 ABG Base Excess ABG Hemoglobin Oxyhemoglobin Sodium Potassium 5.1 H Chloride 96.5 L Carbon Dioxide BUN 73 H Creatinine 3.9 H D Glucose POC Glucose 114 H Calcium 10.3 H Phosphorus 6.30 H Magnesium 2.70 H ALT Alkaline Phosphatase 185 H Total Creatine Kinase CK-MB (CK-2) Rel Index Troponin T Albumin 2.6 L LDL Cholesterol Direct PTH Intact Salicylates Acetaminophen Crossmatch 03/31/19 03/31/19 03/31/19 05:45 10:26 10:26 WBC RBC 3.01 L Hgb 8.2 L Hct 26.4 L MCV MCH 27 L MCHC 31 L RDW 20.3 H Plt Count Lymph % (Auto) 13.3 L [place] % (Auto) Eos % (Auto) 7.2 H Baso % (Auto) Lymph # 1.1 L [place] # Eos # 0.6 H Baso # Seg Neutrophils % 72.1 H Seg Neuts % (Manual) Lymphocytes % (Manual) Eosinophils % (Manual) Seg Neutrophils # Lymphocytes # (Manual) Eosinophils # (Manual) PT INR D-Dimer POC ABG pH POC ABG pCO2 POC ABG pO2 ABG pO2 ABG HCO3 ABG Base Excess ABG Hemoglobin Oxyhemoglobin Sodium Potassium Chloride 96.9 L Carbon Dioxide 33 H BUN 37 H Creatinine 2.4 H Glucose POC Glucose 108 H Calcium 10.3 H Phosphorus Magnesium ALT Alkaline Phosphatase Total Creatine Kinase CK-MB (CK-2) Rel Index Troponin T Albumin LDL Cholesterol Direct PTH Intact Salicylates Acetaminophen Crossmatch 03/31/19 04/01/19 04/01/19 12:38 05:48 12:06 WBC RBC Hgb Hct MCV MCH MCHC RDW Plt Count Lymph % (Auto) [place] % (Auto) Eos % (Auto) Baso % (Auto) Lymph # [place] # Eos # Baso # Seg Neutrophils % Seg Neuts % (Manual) Lymphocytes % (Manual) Eosinophils % (Manual) Seg Neutrophils # Lymphocytes # (Manual) Eosinophils # (Manual) PT INR D-Dimer POC ABG pH POC ABG pCO2 POC ABG pO2 ABG pO2 ABG HCO3 ABG Base Excess ABG Hemoglobin Oxyhemoglobin Sodium Potassium Chloride Carbon Dioxide BUN Creatinine Glucose POC Glucose 108 H 114 H 111 H Calcium Phosphorus Magnesium ALT Alkaline Phosphatase Total Creatine Kinase CK-MB (CK-2) Rel Index Troponin T Albumin LDL Cholesterol Direct PTH Intact Salicylates Acetaminophen Crossmatch 04/01/19 04/02/19 04/04/19 18:24 00:36 23:55 WBC RBC Hgb Hct MCV MCH MCHC RDW Plt Count Lymph % (Auto) [place] % (Auto) Eos % (Auto) Baso % (Auto) Lymph # [place] # Eos # Baso # Seg Neutrophils % Seg Neuts % (Manual) Lymphocytes % (Manual) Eosinophils % (Manual) Seg Neutrophils # Lymphocytes # (Manual) Eosinophils # (Manual) PT INR D-Dimer POC ABG pH POC ABG pCO2 POC ABG pO2 ABG pO2 ABG HCO3 ABG Base Excess ABG Hemoglobin Oxyhemoglobin Sodium Potassium Chloride Carbon Dioxide BUN Creatinine Glucose POC Glucose 113 H 117 H 109 H Calcium Phosphorus Magnesium ALT Alkaline Phosphatase Total Creatine Kinase CK-MB (CK-2) Rel Index Troponin T Albumin LDL Cholesterol Direct PTH Intact Salicylates Acetaminophen Crossmatch 04/06/19 04/06/19 04/06/19 00:11 06:02 23:30 WBC RBC Hgb Hct MCV MCH MCHC RDW Plt Count Lymph % (Auto) [place] % (Auto) Eos % (Auto) Baso % (Auto) Lymph # [place] # Eos # Baso # Seg Neutrophils % Seg Neuts % (Manual) Lymphocytes % (Manual) Eosinophils % (Manual) Seg Neutrophils # Lymphocytes # (Manual) Eosinophils # (Manual) PT INR D-Dimer POC ABG pH POC ABG pCO2 POC ABG pO2 ABG pO2 ABG HCO3 ABG Base Excess ABG Hemoglobin Oxyhemoglobin Sodium Potassium Chloride Carbon Dioxide BUN Creatinine Glucose POC Glucose 116 H 112 H 112 H Calcium Phosphorus Magnesium ALT Alkaline Phosphatase Total Creatine Kinase CK-MB (CK-2) Rel Index Troponin T Albumin LDL Cholesterol Direct PTH Intact Salicylates Acetaminophen Crossmatch 04/08/19 04/08/19 04/08/19 02:23 06:19 13:01 WBC RBC Hgb Hct MCV MCH MCHC RDW Plt Count Lymph % (Auto) [place] % (Auto) Eos % (Auto) Baso % (Auto) Lymph # [place] # Eos # Baso # Seg Neutrophils % Seg Neuts % (Manual) Lymphocytes % (Manual) Eosinophils % (Manual) Seg Neutrophils # Lymphocytes # (Manual) Eosinophils # (Manual) PT INR D-Dimer POC ABG pH POC ABG pCO2 POC ABG pO2 ABG pO2 ABG HCO3 ABG Base Excess ABG Hemoglobin Oxyhemoglobin Sodium Potassium Chloride Carbon Dioxide BUN Creatinine Glucose POC Glucose 144 H 126 H 118 H Calcium Phosphorus Magnesium ALT Alkaline Phosphatase Total Creatine Kinase CK-MB (CK-2) Rel Index Troponin T Albumin LDL Cholesterol Direct PTH Intact Salicylates Acetaminophen Crossmatch 04/08/19 04/09/19 04/10/19 23:28 05:52 06:34 WBC RBC Hgb Hct MCV MCH MCHC RDW Plt Count Lymph % (Auto) [place] % (Auto) Eos % (Auto) Baso % (Auto) Lymph # [place] # Eos # Baso # Seg Neutrophils % Seg Neuts % (Manual) Lymphocytes % (Manual) Eosinophils % (Manual) Seg Neutrophils # Lymphocytes # (Manual) Eosinophils # (Manual) PT INR D-Dimer POC ABG pH POC ABG pCO2 POC ABG pO2 ABG pO2 ABG HCO3 ABG Base Excess ABG Hemoglobin Oxyhemoglobin Sodium Potassium Chloride Carbon Dioxide BUN Creatinine Glucose POC Glucose 119 H 116 H 114 H Calcium Phosphorus Magnesium ALT Alkaline Phosphatase Total Creatine Kinase CK-MB (CK-2) Rel Index Troponin T Albumin LDL Cholesterol Direct PTH Intact Salicylates Acetaminophen Crossmatch 04/10/19 04/10/19 04/11/19 12:34 18:59 00:36 WBC RBC Hgb Hct MCV MCH MCHC RDW Plt Count Lymph % (Auto) [place] % (Auto) Eos % (Auto) Baso % (Auto) Lymph # [place] # Eos # Baso # Seg Neutrophils % Seg Neuts % (Manual) Lymphocytes % (Manual) Eosinophils % (Manual) Seg Neutrophils # Lymphocytes # (Manual) Eosinophils # (Manual) PT INR D-Dimer POC ABG pH POC ABG pCO2 POC ABG pO2 ABG pO2 ABG HCO3 ABG Base Excess ABG Hemoglobin Oxyhemoglobin Sodium Potassium Chloride Carbon Dioxide BUN Creatinine Glucose POC Glucose 112 H 109 H 124 H Calcium Phosphorus Magnesium ALT Alkaline Phosphatase Total Creatine Kinase CK-MB (CK-2) Rel Index Troponin T Albumin LDL Cholesterol Direct PTH Intact Salicylates Acetaminophen Crossmatch 04/11/19 04/11/19 04/12/19 08:01 17:25 02:18 WBC RBC Hgb Hct MCV MCH MCHC RDW Plt Count Lymph % (Auto) [place] % (Auto) Eos % (Auto) Baso % (Auto) Lymph # [place] # Eos # Baso # Seg Neutrophils % Seg Neuts % (Manual) Lymphocytes % (Manual) Eosinophils % (Manual) Seg Neutrophils # Lymphocytes # (Manual) Eosinophils # (Manual) PT INR D-Dimer POC ABG pH POC ABG pCO2 POC ABG pO2 ABG pO2 ABG HCO3 ABG Base Excess ABG Hemoglobin Oxyhemoglobin Sodium Potassium Chloride Carbon Dioxide BUN Creatinine Glucose POC Glucose 118 H 106 H 125 H Calcium Phosphorus Magnesium ALT Alkaline Phosphatase Total Creatine Kinase CK-MB (CK-2) Rel Index Troponin T Albumin LDL Cholesterol Direct PTH Intact Salicylates Acetaminophen Crossmatch 04/12/19 04/12/19 04/12/19 06:24 12:22 17:13 WBC RBC Hgb Hct MCV MCH MCHC RDW Plt Count Lymph % (Auto) [place] % (Auto) Eos % (Auto) Baso % (Auto) Lymph # [place] # Eos # Baso # Seg Neutrophils % Seg Neuts % (Manual) Lymphocytes % (Manual) Eosinophils % (Manual) Seg Neutrophils # Lymphocytes # (Manual) Eosinophils # (Manual) PT INR D-Dimer POC ABG pH POC ABG pCO2 POC ABG pO2 ABG pO2 ABG HCO3 ABG Base Excess ABG Hemoglobin Oxyhemoglobin Sodium Potassium Chloride Carbon Dioxide BUN Creatinine Glucose POC Glucose 128 H 114 H 110 H Calcium Phosphorus Magnesium ALT Alkaline Phosphatase Total Creatine Kinase CK-MB (CK-2) Rel Index Troponin T Albumin LDL Cholesterol Direct PTH Intact Salicylates Acetaminophen Crossmatch 04/13/19 04/13/19 04/13/19 06:59 07:31 07:31 WBC RBC 3.34 L Hgb 8.9 L Hct 28.6 L MCV MCH 27 L MCHC 31 L RDW 19.6 H Plt Count Lymph % (Auto) [place] % (Auto) Eos % (Auto) Baso % (Auto) Lymph # [place] # Eos # Baso # Seg Neutrophils % Seg Neuts % (Manual) Lymphocytes % (Manual) Eosinophils % (Manual) Seg Neutrophils # Lymphocytes # (Manual) Eosinophils # (Manual) PT INR D-Dimer POC ABG pH POC ABG pCO2 POC ABG pO2 ABG pO2 ABG HCO3 ABG Base Excess ABG Hemoglobin Oxyhemoglobin Sodium Potassium Chloride 96.4 L Carbon Dioxide 33 H BUN 66 H Creatinine 4.5 H Glucose 103 H POC Glucose 107 H Calcium Phosphorus Magnesium ALT Alkaline Phosphatase Total Creatine Kinase CK-MB (CK-2) Rel Index Troponin T Albumin LDL Cholesterol Direct PTH Intact Salicylates Acetaminophen Crossmatch 04/13/19 04/14/19 04/14/19 23:43 05:50 13:07 WBC RBC Hgb Hct MCV MCH MCHC RDW Plt Count Lymph % (Auto) [place] % (Auto) Eos % (Auto) Baso % (Auto) Lymph # [place] # Eos # Baso # Seg Neutrophils % Seg Neuts % (Manual) Lymphocytes % (Manual) Eosinophils % (Manual) Seg Neutrophils # Lymphocytes # (Manual) Eosinophils # (Manual) PT INR D-Dimer POC ABG pH POC ABG pCO2 POC ABG pO2 ABG pO2 ABG HCO3 ABG Base Excess ABG Hemoglobin Oxyhemoglobin Sodium Potassium Chloride Carbon Dioxide BUN Creatinine Glucose POC Glucose 119 H 112 H 112 H Calcium Phosphorus Magnesium ALT Alkaline Phosphatase Total Creatine Kinase CK-MB (CK-2) Rel Index Troponin T Albumin LDL Cholesterol Direct PTH Intact Salicylates Acetaminophen Crossmatch 04/14/19 04/15/19 04/15/19 18:35 01:18 05:17 WBC RBC Hgb Hct MCV MCH MCHC RDW Plt Count Lymph % (Auto) [place] % (Auto) Eos % (Auto) Baso % (Auto) Lymph # [place] # Eos # Baso # Seg Neutrophils % Seg Neuts % (Manual) Lymphocytes % (Manual) Eosinophils % (Manual) Seg Neutrophils # Lymphocytes # (Manual) Eosinophils # (Manual) PT INR D-Dimer POC ABG pH POC ABG pCO2 POC ABG pO2 ABG pO2 ABG HCO3 ABG Base Excess ABG Hemoglobin Oxyhemoglobin Sodium Potassium Chloride Carbon Dioxide BUN Creatinine Glucose POC Glucose 114 H 114 H 114 H Calcium Phosphorus Magnesium ALT Alkaline Phosphatase Total Creatine Kinase CK-MB (CK-2) Rel Index Troponin T Albumin LDL Cholesterol Direct PTH Intact Salicylates Acetaminophen Crossmatch 04/15/19 04/15/19 04/16/19 11:50 23:39 05:41 WBC RBC Hgb Hct MCV MCH MCHC RDW Plt Count Lymph % (Auto) [place] % (Auto) Eos % (Auto) Baso % (Auto) Lymph # [place] # Eos # Baso # Seg Neutrophils % Seg Neuts % (Manual) Lymphocytes % (Manual) Eosinophils % (Manual) Seg Neutrophils # Lymphocytes # (Manual) Eosinophils # (Manual) PT INR D-Dimer POC ABG pH POC ABG pCO2 POC ABG pO2 ABG pO2 ABG HCO3 ABG Base Excess ABG Hemoglobin Oxyhemoglobin Sodium Potassium Chloride Carbon Dioxide BUN Creatinine Glucose POC Glucose 109 H 115 H 125 H Calcium Phosphorus Magnesium ALT Alkaline Phosphatase Total Creatine Kinase CK-MB (CK-2) Rel Index Troponin T Albumin LDL Cholesterol Direct PTH Intact Salicylates Acetaminophen Crossmatch 04/16/19 04/17/19 04/17/19 12:53 01:00 12:38 WBC RBC Hgb Hct MCV MCH MCHC RDW Plt Count Lymph % (Auto) [place] % (Auto) Eos % (Auto) Baso % (Auto) Lymph # [place] # Eos # Baso # Seg Neutrophils % Seg Neuts % (Manual) Lymphocytes % (Manual) Eosinophils % (Manual) Seg Neutrophils # Lymphocytes # (Manual) Eosinophils # (Manual) PT INR D-Dimer POC ABG pH POC ABG pCO2 POC ABG pO2 ABG pO2 ABG HCO3 ABG Base Excess ABG Hemoglobin Oxyhemoglobin Sodium Potassium Chloride Carbon Dioxide BUN Creatinine Glucose POC Glucose 121 H 127 H 159 H Calcium Phosphorus Magnesium ALT Alkaline Phosphatase Total Creatine Kinase CK-MB (CK-2) Rel Index Troponin T Albumin LDL Cholesterol Direct PTH Intact Salicylates Acetaminophen Crossmatch 04/17/19 04/17/19 04/18/19 18:27 23:36 07:19 WBC RBC 3.49 L Hgb 9.0 L Hct 29.9 L MCV MCH 26 L MCHC 30 L RDW 20.0 H Plt Count Lymph % (Auto) [place] % (Auto) Eos % (Auto) Baso % (Auto) Lymph # [place] # Eos # Baso # Seg Neutrophils % Seg Neuts % (Manual) Lymphocytes % (Manual) Eosinophils % (Manual) Seg Neutrophils # Lymphocytes # (Manual) Eosinophils # (Manual) PT INR D-Dimer POC ABG pH POC ABG pCO2 POC ABG pO2 ABG pO2 ABG HCO3 ABG Base Excess ABG Hemoglobin Oxyhemoglobin Sodium Potassium Chloride Carbon Dioxide BUN Creatinine Glucose POC Glucose 109 H 134 H Calcium Phosphorus Magnesium ALT Alkaline Phosphatase Total Creatine Kinase CK-MB (CK-2) Rel Index Troponin T Albumin LDL Cholesterol Direct PTH Intact Salicylates Acetaminophen Crossmatch 04/18/19 04/18/19 04/18/19 07:19 12:16 17:09 WBC RBC Hgb Hct MCV MCH MCHC RDW Plt Count Lymph % (Auto) [place] % (Auto) Eos % (Auto) Baso % (Auto) Lymph # [place] # Eos # Baso # Seg Neutrophils % Seg Neuts % (Manual) Lymphocytes % (Manual) Eosinophils % (Manual) Seg Neutrophils # Lymphocytes # (Manual) Eosinophils # (Manual) PT INR D-Dimer POC ABG pH POC ABG pCO2 POC ABG pO2 ABG pO2 ABG HCO3 ABG Base Excess ABG Hemoglobin Oxyhemoglobin Sodium Potassium Chloride Carbon Dioxide BUN 41 H Creatinine 2.9 H Glucose 122 H POC Glucose 125 H 131 H Calcium Phosphorus Magnesium ALT Alkaline Phosphatase Total Creatine Kinase CK-MB (CK-2) Rel Index Troponin T Albumin LDL Cholesterol Direct PTH Intact Salicylates Acetaminophen Crossmatch 04/18/19 04/19/19 04/19/19 23:57 05:55 11:35 WBC RBC Hgb Hct MCV MCH MCHC RDW Plt Count Lymph % (Auto) [place] % (Auto) Eos % (Auto) Baso % (Auto) Lymph # [place] # Eos # Baso # Seg Neutrophils % Seg Neuts % (Manual) Lymphocytes % (Manual) Eosinophils % (Manual) Seg Neutrophils # Lymphocytes # (Manual) Eosinophils # (Manual) PT INR D-Dimer POC ABG pH POC ABG pCO2 POC ABG pO2 ABG pO2 ABG HCO3 ABG Base Excess ABG Hemoglobin Oxyhemoglobin Sodium Potassium Chloride Carbon Dioxide BUN Creatinine Glucose POC Glucose 159 H 144 H 177 H Calcium Phosphorus Magnesium ALT Alkaline Phosphatase Total Creatine Kinase CK-MB (CK-2) Rel Index Troponin T Albumin LDL Cholesterol Direct PTH Intact Salicylates Acetaminophen Crossmatch 04/19/19 04/20/19 04/20/19 16:36 02:05 06:28 WBC RBC Hgb Hct MCV MCH MCHC RDW Plt Count Lymph % (Auto) [place] % (Auto) Eos % (Auto) Baso % (Auto) Lymph # [place] # Eos # Baso # Seg Neutrophils % Seg Neuts % (Manual) Lymphocytes % (Manual) Eosinophils % (Manual) Seg Neutrophils # Lymphocytes # (Manual) Eosinophils # (Manual) PT INR D-Dimer POC ABG pH POC ABG pCO2 POC ABG pO2 ABG pO2 ABG HCO3 ABG Base Excess ABG Hemoglobin Oxyhemoglobin Sodium Potassium Chloride Carbon Dioxide BUN Creatinine Glucose POC Glucose 134 H 142 H 132 H Calcium Phosphorus Magnesium ALT Alkaline Phosphatase Total Creatine Kinase CK-MB (CK-2) Rel Index Troponin T Albumin LDL Cholesterol Direct PTH Intact Salicylates Acetaminophen Crossmatch 04/20/19 04/20/19 04/21/19 12:37 23:34 05:59 WBC RBC Hgb Hct MCV MCH MCHC RDW Plt Count Lymph % (Auto) [place] % (Auto) Eos % (Auto) Baso % (Auto) Lymph # [place] # Eos # Baso # Seg Neutrophils % Seg Neuts % (Manual) Lymphocytes % (Manual) Eosinophils % (Manual) Seg Neutrophils # Lymphocytes # (Manual) Eosinophils # (Manual) PT INR D-Dimer POC ABG pH POC ABG pCO2 POC ABG pO2 ABG pO2 ABG HCO3 ABG Base Excess ABG Hemoglobin Oxyhemoglobin Sodium Potassium Chloride Carbon Dioxide BUN Creatinine Glucose POC Glucose 163 H 166 H 140 H Calcium Phosphorus Magnesium ALT Alkaline Phosphatase Total Creatine Kinase CK-MB (CK-2) Rel Index Troponin T Albumin LDL Cholesterol Direct PTH Intact Salicylates Acetaminophen Crossmatch 04/21/19 04/21/19 04/21/19 12:07 17:22 23:43 WBC RBC Hgb Hct MCV MCH MCHC RDW Plt Count Lymph % (Auto) [place] % (Auto) Eos % (Auto) Baso % (Auto) Lymph # [place] # Eos # Baso # Seg Neutrophils % Seg Neuts % (Manual) Lymphocytes % (Manual) Eosinophils % (Manual) Seg Neutrophils # Lymphocytes # (Manual) Eosinophils # (Manual) PT INR D-Dimer POC ABG pH POC ABG pCO2 POC ABG pO2 ABG pO2 ABG HCO3 ABG Base Excess ABG Hemoglobin Oxyhemoglobin Sodium Potassium Chloride Carbon Dioxide BUN Creatinine Glucose POC Glucose 135 H 141 H 138 H Calcium Phosphorus Magnesium ALT Alkaline Phosphatase Total Creatine Kinase CK-MB (CK-2) Rel Index Troponin T Albumin LDL Cholesterol Direct PTH Intact Salicylates Acetaminophen Crossmatch 04/22/19 04/22/19 04/22/19 05:12 18:24 23:49 WBC RBC Hgb Hct MCV MCH MCHC RDW Plt Count Lymph % (Auto) [place] % (Auto) Eos % (Auto) Baso % (Auto) Lymph # [place] # Eos # Baso # Seg Neutrophils % Seg Neuts % (Manual) Lymphocytes % (Manual) Eosinophils % (Manual) Seg Neutrophils # Lymphocytes # (Manual) Eosinophils # (Manual) PT INR D-Dimer POC ABG pH POC ABG pCO2 POC ABG pO2 ABG pO2 ABG HCO3 ABG Base Excess ABG Hemoglobin Oxyhemoglobin Sodium Potassium Chloride Carbon Dioxide BUN Creatinine Glucose POC Glucose 141 H 137 H 142 H Calcium Phosphorus Magnesium ALT Alkaline Phosphatase Total Creatine Kinase CK-MB (CK-2) Rel Index Troponin T Albumin LDL Cholesterol Direct PTH Intact Salicylates Acetaminophen Crossmatch 04/23/19 04/23/19 04/23/19 05:53 08:13 11:58 WBC RBC Hgb Hct MCV MCH MCHC RDW Plt Count Lymph % (Auto) [place] % (Auto) Eos % (Auto) Baso % (Auto) Lymph # [place] # Eos # Baso # Seg Neutrophils % Seg Neuts % (Manual) Lymphocytes % (Manual) Eosinophils % (Manual) Seg Neutrophils # Lymphocytes # (Manual) Eosinophils # (Manual) PT INR D-Dimer POC ABG pH POC ABG pCO2 POC ABG pO2 ABG pO2 ABG HCO3 ABG Base Excess ABG Hemoglobin Oxyhemoglobin Sodium Potassium Chloride Carbon Dioxide BUN Creatinine Glucose POC Glucose 132 H 154 H 165 H Calcium Phosphorus Magnesium ALT Alkaline Phosphatase Total Creatine Kinase CK-MB (CK-2) Rel Index Troponin T Albumin LDL Cholesterol Direct PTH Intact Salicylates Acetaminophen Crossmatch 04/23/19 04/24/19 04/24/19 16:28 00:28 07:00 WBC RBC Hgb Hct MCV MCH MCHC RDW Plt Count Lymph % (Auto) [place] % (Auto) Eos % (Auto) Baso % (Auto) Lymph # [place] # Eos # Baso # Seg Neutrophils % Seg Neuts % (Manual) Lymphocytes % (Manual) Eosinophils % (Manual) Seg Neutrophils # Lymphocytes # (Manual) Eosinophils # (Manual) PT INR D-Dimer POC ABG pH POC ABG pCO2 POC ABG pO2 ABG pO2 ABG HCO3 ABG Base Excess ABG Hemoglobin Oxyhemoglobin Sodium Potassium Chloride Carbon Dioxide BUN Creatinine Glucose POC Glucose 136 H 140 H 141 H Calcium Phosphorus Magnesium ALT Alkaline Phosphatase Total Creatine Kinase CK-MB (CK-2) Rel Index Troponin T Albumin LDL Cholesterol Direct PTH Intact Salicylates Acetaminophen Crossmatch 04/24/19 04/24/19 04/25/19 12:38 18:57 00:38 WBC RBC Hgb Hct MCV MCH MCHC RDW Plt Count Lymph % (Auto) [place] % (Auto) Eos % (Auto) Baso % (Auto) Lymph # [place] # Eos # Baso # Seg Neutrophils % Seg Neuts % (Manual) Lymphocytes % (Manual) Eosinophils % (Manual) Seg Neutrophils # Lymphocytes # (Manual) Eosinophils # (Manual) PT INR D-Dimer POC ABG pH POC ABG pCO2 POC ABG pO2 ABG pO2 ABG HCO3 ABG Base Excess ABG Hemoglobin Oxyhemoglobin Sodium Potassium Chloride Carbon Dioxide BUN Creatinine Glucose POC Glucose 152 H 166 H 128 H Calcium Phosphorus Magnesium ALT Alkaline Phosphatase Total Creatine Kinase CK-MB (CK-2) Rel Index Troponin T Albumin LDL Cholesterol Direct PTH Intact Salicylates Acetaminophen Crossmatch 04/25/19 04/25/19 04/25/19 05:44 13:43 18:34 WBC RBC Hgb Hct MCV MCH MCHC RDW Plt Count Lymph % (Auto) [place] % (Auto) Eos % (Auto) Baso % (Auto) Lymph # [place] # Eos # Baso # Seg Neutrophils % Seg Neuts % (Manual) Lymphocytes % (Manual) Eosinophils % (Manual) Seg Neutrophils # Lymphocytes # (Manual) Eosinophils # (Manual) PT INR D-Dimer POC ABG pH POC ABG pCO2 POC ABG pO2 ABG pO2 ABG HCO3 ABG Base Excess ABG Hemoglobin Oxyhemoglobin Sodium Potassium Chloride Carbon Dioxide BUN Creatinine Glucose POC Glucose 153 H 186 H 124 H Calcium Phosphorus Magnesium ALT Alkaline Phosphatase Total Creatine Kinase CK-MB (CK-2) Rel Index Troponin T Albumin LDL Cholesterol Direct PTH Intact Salicylates Acetaminophen Crossmatch 04/26/19 04/26/19 04/26/19 00:59 05:52 10:12 WBC 11.5 H RBC 2.84 L Hgb 7.4 L Hct 23.3 L MCV 82 L MCH 26 L MCHC RDW 20.3 H Plt Count Lymph % (Auto) 7.5 L [place] % (Auto) 7.5 H Eos % (Auto) 5.3 H Baso % (Auto) Lymph # 0.9 L [place] # 0.9 H Eos # 0.6 H Baso # Seg Neutrophils % 79.2 H Seg Neuts % (Manual) Lymphocytes % (Manual) Eosinophils % (Manual) Seg Neutrophils # 9.1 H Lymphocytes # (Manual) Eosinophils # (Manual) PT INR D-Dimer POC ABG pH POC ABG pCO2 POC ABG pO2 ABG pO2 ABG HCO3 ABG Base Excess ABG Hemoglobin Oxyhemoglobin Sodium Potassium Chloride Carbon Dioxide BUN Creatinine Glucose POC Glucose 163 H 146 H Calcium Phosphorus Magnesium ALT Alkaline Phosphatase Total Creatine Kinase CK-MB (CK-2) Rel Index Troponin T Albumin LDL Cholesterol Direct PTH Intact Salicylates Acetaminophen Crossmatch 04/26/19 04/26/19 04/26/19 10:12 12:15 19:00 WBC RBC Hgb Hct MCV MCH MCHC RDW Plt Count Lymph % (Auto) [place] % (Auto) Eos % (Auto) Baso % (Auto) Lymph # [place] # Eos # Baso # Seg Neutrophils % Seg Neuts % (Manual) Lymphocytes % (Manual) Eosinophils % (Manual) Seg Neutrophils # Lymphocytes # (Manual) Eosinophils # (Manual) PT INR D-Dimer POC ABG pH POC ABG pCO2 POC ABG pO2 ABG pO2 ABG HCO3 ABG Base Excess ABG Hemoglobin Oxyhemoglobin Sodium 130 L Potassium Chloride 87.4 L Carbon Dioxide BUN 93 H Creatinine 4.2 H Glucose 140 H POC Glucose 155 H 179 H Calcium Phosphorus Magnesium ALT Alkaline Phosphatase Total Creatine Kinase CK-MB (CK-2) Rel Index Troponin T Albumin LDL Cholesterol Direct PTH Intact Salicylates Acetaminophen Crossmatch 04/27/19 04/27/19 04/27/19 00:23 06:34 17:13 WBC RBC Hgb Hct MCV MCH MCHC RDW Plt Count Lymph % (Auto) [place] % (Auto) Eos % (Auto) Baso % (Auto) Lymph # [place] # Eos # Baso # Seg Neutrophils % Seg Neuts % (Manual) Lymphocytes % (Manual) Eosinophils % (Manual) Seg Neutrophils # Lymphocytes # (Manual) Eosinophils # (Manual) PT INR D-Dimer POC ABG pH POC ABG pCO2 POC ABG pO2 ABG pO2 ABG HCO3 ABG Base Excess ABG Hemoglobin Oxyhemoglobin Sodium Potassium Chloride Carbon Dioxide BUN Creatinine Glucose POC Glucose 158 H 140 H 152 H Calcium Phosphorus Magnesium ALT Alkaline Phosphatase Total Creatine Kinase CK-MB (CK-2) Rel Index Troponin T Albumin LDL Cholesterol Direct PTH Intact Salicylates Acetaminophen Crossmatch 04/27/19 04/28/19 04/28/19 23:50 05:18 11:37 WBC RBC Hgb Hct MCV MCH MCHC RDW Plt Count Lymph % (Auto) [place] % (Auto) Eos % (Auto) Baso % (Auto) Lymph # [place] # Eos # Baso # Seg Neutrophils % Seg Neuts % (Manual) Lymphocytes % (Manual) Eosinophils % (Manual) Seg Neutrophils # Lymphocytes # (Manual) Eosinophils # (Manual) PT INR D-Dimer POC ABG pH POC ABG pCO2 POC ABG pO2 ABG pO2 ABG HCO3 ABG Base Excess ABG Hemoglobin Oxyhemoglobin Sodium Potassium Chloride Carbon Dioxide BUN Creatinine Glucose POC Glucose 160 H 145 H 177 H Calcium Phosphorus Magnesium ALT Alkaline Phosphatase Total Creatine Kinase CK-MB (CK-2) Rel Index Troponin T Albumin LDL Cholesterol Direct PTH Intact Salicylates Acetaminophen Crossmatch 04/28/19 04/28/19 04/29/19 18:31 23:47 05:50 WBC RBC Hgb Hct MCV MCH MCHC RDW Plt Count Lymph % (Auto) [place] % (Auto) Eos % (Auto) Baso % (Auto) Lymph # [place] # Eos # Baso # Seg Neutrophils % Seg Neuts % (Manual) Lymphocytes % (Manual) Eosinophils % (Manual) Seg Neutrophils # Lymphocytes # (Manual) Eosinophils # (Manual) PT INR D-Dimer POC ABG pH POC ABG pCO2 POC ABG pO2 ABG pO2 ABG HCO3 ABG Base Excess ABG Hemoglobin Oxyhemoglobin Sodium Potassium Chloride Carbon Dioxide BUN Creatinine Glucose POC Glucose 153 H 117 H 177 H Calcium Phosphorus Magnesium ALT Alkaline Phosphatase Total Creatine Kinase CK-MB (CK-2) Rel Index Troponin T Albumin LDL Cholesterol Direct PTH Intact Salicylates Acetaminophen Crossmatch 04/29/19 04/30/19 04/30/19 17:04 01:02 06:42 WBC RBC Hgb Hct MCV MCH MCHC RDW Plt Count Lymph % (Auto) [place] % (Auto) Eos % (Auto) Baso % (Auto) Lymph # [place] # Eos # Baso # Seg Neutrophils % Seg Neuts % (Manual) Lymphocytes % (Manual) Eosinophils % (Manual) Seg Neutrophils # Lymphocytes # (Manual) Eosinophils # (Manual) PT INR D-Dimer POC ABG pH POC ABG pCO2 POC ABG pO2 ABG pO2 ABG HCO3 ABG Base Excess ABG Hemoglobin Oxyhemoglobin Sodium Potassium Chloride Carbon Dioxide BUN Creatinine Glucose POC Glucose 205 H 143 H 145 H Calcium Phosphorus Magnesium ALT Alkaline Phosphatase Total Creatine Kinase CK-MB (CK-2) Rel Index Troponin T Albumin LDL Cholesterol Direct PTH Intact Salicylates Acetaminophen Crossmatch 04/30/19 04/30/19 04/30/19 11:31 18:12 23:38 WBC RBC Hgb Hct MCV MCH MCHC RDW Plt Count Lymph % (Auto) [place] % (Auto) Eos % (Auto) Baso % (Auto) Lymph # [place] # Eos # Baso # Seg Neutrophils % Seg Neuts % (Manual) Lymphocytes % (Manual) Eosinophils % (Manual) Seg Neutrophils # Lymphocytes # (Manual) Eosinophils # (Manual) PT INR D-Dimer POC ABG pH POC ABG pCO2 POC ABG pO2 ABG pO2 ABG HCO3 ABG Base Excess ABG Hemoglobin Oxyhemoglobin Sodium Potassium Chloride Carbon Dioxide BUN Creatinine Glucose POC Glucose 162 H 117 H 139 H Calcium Phosphorus Magnesium ALT Alkaline Phosphatase Total Creatine Kinase CK-MB (CK-2) Rel Index Troponin T Albumin LDL Cholesterol Direct PTH Intact Salicylates Acetaminophen Crossmatch 05/01/19 05/01/19 05/02/19 06:06 23:41 05:59 WBC RBC Hgb Hct MCV MCH MCHC RDW Plt Count Lymph % (Auto) [place] % (Auto) Eos % (Auto) Baso % (Auto) Lymph # [place] # Eos # Baso # Seg Neutrophils % Seg Neuts % (Manual) Lymphocytes % (Manual) Eosinophils % (Manual) Seg Neutrophils # Lymphocytes # (Manual) Eosinophils # (Manual) PT INR D-Dimer POC ABG pH POC ABG pCO2 POC ABG pO2 ABG pO2 ABG HCO3 ABG Base Excess ABG Hemoglobin Oxyhemoglobin Sodium Potassium Chloride Carbon Dioxide BUN Creatinine Glucose POC Glucose 150 H 140 H 130 H Calcium Phosphorus Magnesium ALT Alkaline Phosphatase Total Creatine Kinase CK-MB (CK-2) Rel Index Troponin T Albumin LDL Cholesterol Direct PTH Intact Salicylates Acetaminophen Crossmatch 05/02/19 05/02/19 05/03/19 11:55 18:10 00:15 WBC RBC Hgb Hct MCV MCH MCHC RDW Plt Count Lymph % (Auto) [place] % (Auto) Eos % (Auto) Baso % (Auto) Lymph # [place] # Eos # Baso # Seg Neutrophils % Seg Neuts % (Manual) Lymphocytes % (Manual) Eosinophils % (Manual) Seg Neutrophils # Lymphocytes # (Manual) Eosinophils # (Manual) PT INR D-Dimer POC ABG pH POC ABG pCO2 POC ABG pO2 ABG pO2 ABG HCO3 ABG Base Excess ABG Hemoglobin Oxyhemoglobin Sodium Potassium Chloride Carbon Dioxide BUN Creatinine Glucose POC Glucose 146 H 141 H 145 H Calcium Phosphorus Magnesium ALT Alkaline Phosphatase Total Creatine Kinase CK-MB (CK-2) Rel Index Troponin T Albumin LDL Cholesterol Direct PTH Intact Salicylates Acetaminophen Crossmatch 05/03/19 05/03/19 05/03/19 05:49 05:49 06:01 WBC RBC 2.84 L Hgb 7.2 L Hct 22.9 L MCV 81 L MCH 26 L MCHC RDW 20.6 H Plt Count 456 H Lymph % (Auto) 11.8 L [place] % (Auto) Eos % (Auto) 10.6 H Baso % (Auto) Lymph # 1.1 L [place] # Eos # 1.0 H Baso # Seg Neutrophils % 70.4 H Seg Neuts % (Manual) Lymphocytes % (Manual) Eosinophils % (Manual) Seg Neutrophils # Lymphocytes # (Manual) Eosinophils # (Manual) PT INR D-Dimer POC ABG pH POC ABG pCO2 POC ABG pO2 ABG pO2 ABG HCO3 ABG Base Excess ABG Hemoglobin Oxyhemoglobin Sodium Potassium Chloride 94.8 L Carbon Dioxide BUN 66 H Creatinine 3.6 H Glucose 129 H POC Glucose 135 H Calcium Phosphorus Magnesium ALT Alkaline Phosphatase Total Creatine Kinase CK-MB (CK-2) Rel Index Troponin T Albumin LDL Cholesterol Direct PTH Intact Salicylates Acetaminophen Crossmatch 05/03/19 05/03/19 05/04/19 11:04 18:40 00:06 WBC RBC Hgb Hct MCV MCH MCHC RDW Plt Count Lymph % (Auto) [place] % (Auto) Eos % (Auto) Baso % (Auto) Lymph # [place] # Eos # Baso # Seg Neutrophils % Seg Neuts % (Manual) Lymphocytes % (Manual) Eosinophils % (Manual) Seg Neutrophils # Lymphocytes # (Manual) Eosinophils # (Manual) PT INR D-Dimer POC ABG pH POC ABG pCO2 POC ABG pO2 ABG pO2 ABG HCO3 ABG Base Excess ABG Hemoglobin Oxyhemoglobin Sodium Potassium Chloride Carbon Dioxide BUN Creatinine Glucose POC Glucose 191 H 167 H 137 H Calcium Phosphorus Magnesium ALT Alkaline Phosphatase Total Creatine Kinase CK-MB (CK-2) Rel Index Troponin T Albumin LDL Cholesterol Direct PTH Intact Salicylates Acetaminophen Crossmatch 05/04/19 05/04/19 05/04/19 06:44 07:30 07:30 WBC 15.8 H RBC 2.74 L Hgb 6.7 L Hct 22.2 L MCV 81 L MCH 24 L MCHC 30 L RDW 20.4 H Plt Count 450 H Lymph % (Auto) 5.1 L [place] % (Auto) Eos % (Auto) Baso % (Auto) Lymph # 0.8 L [place] # Eos # 0.6 H Baso # Seg Neutrophils % 86.3 H Seg Neuts % (Manual) Lymphocytes % (Manual) Eosinophils % (Manual) Seg Neutrophils # 13.6 H Lymphocytes # (Manual) Eosinophils # (Manual) PT INR D-Dimer POC ABG pH POC ABG pCO2 POC ABG pO2 ABG pO2 ABG HCO3 ABG Base Excess ABG Hemoglobin Oxyhemoglobin Sodium Potassium Chloride 95.2 L Carbon Dioxide BUN 92 H Creatinine 4.8 H Glucose 139 H POC Glucose 153 H Calcium Phosphorus Magnesium ALT Alkaline Phosphatase Total Creatine Kinase CK-MB (CK-2) Rel Index Troponin T Albumin LDL Cholesterol Direct PTH Intact Salicylates Acetaminophen Crossmatch 05/04/19 05/04/19 05/05/19 12:55 16:31 01:02 WBC RBC Hgb Hct MCV MCH MCHC RDW Plt Count Lymph % (Auto) [place] % (Auto) Eos % (Auto) Baso % (Auto) Lymph # [place] # Eos # Baso # Seg Neutrophils % Seg Neuts % (Manual) Lymphocytes % (Manual) Eosinophils % (Manual) Seg Neutrophils # Lymphocytes # (Manual) Eosinophils # (Manual) PT INR D-Dimer POC ABG pH POC ABG pCO2 POC ABG pO2 ABG pO2 ABG HCO3 ABG Base Excess ABG Hemoglobin Oxyhemoglobin Sodium Potassium Chloride Carbon Dioxide BUN Creatinine Glucose POC Glucose 169 H 171 H Calcium Phosphorus Magnesium ALT Alkaline Phosphatase Total Creatine Kinase CK-MB (CK-2) Rel Index Troponin T Albumin LDL Cholesterol Direct PTH Intact Salicylates Acetaminophen Crossmatch See Detail 05/05/19 05/05/19 05/05/19 05:26 05:36 11:48 WBC 12.6 H RBC 2.73 L Hgb 6.9 L Hct 22.3 L MCV 82 L MCH 25 L MCHC 31 L RDW 21.0 H Plt Count Lymph % (Auto) 8.9 L [place] % (Auto) Eos % (Auto) Baso % (Auto) Lymph # 1.1 L [place] # 0.9 H Eos # Baso # Seg Neutrophils % 80.7 H Seg Neuts % (Manual) Lymphocytes % (Manual) Eosinophils % (Manual) Seg Neutrophils # 10.2 H Lymphocytes # (Manual) Eosinophils # (Manual) PT INR D-Dimer POC ABG pH POC ABG pCO2 POC ABG pO2 ABG pO2 ABG HCO3 ABG Base Excess ABG Hemoglobin Oxyhemoglobin Sodium Potassium Chloride Carbon Dioxide BUN Creatinine Glucose POC Glucose 153 H 173 H Calcium Phosphorus Magnesium ALT Alkaline Phosphatase Total Creatine Kinase CK-MB (CK-2) Rel Index Troponin T Albumin LDL Cholesterol Direct PTH Intact Salicylates Acetaminophen Crossmatch 05/05/19 05/06/19 05/06/19 16:42 02:24 06:12 WBC RBC Hgb Hct MCV MCH MCHC RDW Plt Count Lymph % (Auto) [place] % (Auto) Eos % (Auto) Baso % (Auto) Lymph # [place] # Eos # Baso # Seg Neutrophils % Seg Neuts % (Manual) Lymphocytes % (Manual) Eosinophils % (Manual) Seg Neutrophils # Lymphocytes # (Manual) Eosinophils # (Manual) PT INR D-Dimer POC ABG pH POC ABG pCO2 POC ABG pO2 ABG pO2 ABG HCO3 ABG Base Excess ABG Hemoglobin Oxyhemoglobin Sodium Potassium Chloride Carbon Dioxide BUN Creatinine Glucose POC Glucose 126 H 138 H 151 H Calcium Phosphorus Magnesium ALT Alkaline Phosphatase Total Creatine Kinase CK-MB (CK-2) Rel Index Troponin T Albumin LDL Cholesterol Direct PTH Intact Salicylates Acetaminophen Crossmatch 05/06/19 05/06/19 05/06/19 08:15 16:48 23:16 WBC 11.8 H RBC 2.72 L Hgb 6.7 L Hct 21.7 L MCV 80 L MCH 25 L MCHC 31 L RDW 20.9 H Plt Count Lymph % (Auto) [place] % (Auto) Eos % (Auto) Baso % (Auto) Lymph # [place] # Eos # Baso # Seg Neutrophils % Seg Neuts % (Manual) Lymphocytes % (Manual) Eosinophils % (Manual) Seg Neutrophils # Lymphocytes # (Manual) Eosinophils # (Manual) PT INR D-Dimer POC ABG pH POC ABG pCO2 POC ABG pO2 ABG pO2 ABG HCO3 ABG Base Excess ABG Hemoglobin Oxyhemoglobin Sodium Potassium Chloride Carbon Dioxide BUN Creatinine Glucose POC Glucose 153 H 143 H Calcium Phosphorus Magnesium ALT Alkaline Phosphatase Total Creatine Kinase CK-MB (CK-2) Rel Index Troponin T Albumin LDL Cholesterol Direct PTH Intact Salicylates Acetaminophen Crossmatch 05/07/19 05/07/19 05/07/19 06:00 06:30 12:33 WBC RBC 3.53 L Hgb 9.1 L Hct 28.6 L D MCV 81 L MCH 26 L MCHC RDW 19.1 H Plt Count Lymph % (Auto) 9.6 L [place] % (Auto) Eos % (Auto) 4.8 H Baso % (Auto) Lymph # 1.1 L [place] # Eos # 0.5 H Baso # Seg Neutrophils % 77.8 H Seg Neuts % (Manual) Lymphocytes % (Manual) Eosinophils % (Manual) Seg Neutrophils # 8.6 H Lymphocytes # (Manual) Eosinophils # (Manual) PT INR D-Dimer POC ABG pH POC ABG pCO2 POC ABG pO2 ABG pO2 ABG HCO3 ABG Base Excess ABG Hemoglobin Oxyhemoglobin Sodium Potassium Chloride Carbon Dioxide BUN Creatinine Glucose POC Glucose 122 H 140 H Calcium Phosphorus Magnesium ALT Alkaline Phosphatase Total Creatine Kinase CK-MB (CK-2) Rel Index Troponin T Albumin LDL Cholesterol Direct PTH Intact Salicylates Acetaminophen Crossmatch 05/07/19 05/07/19 05/08/19 16:41 23:55 05:10 WBC 11.6 H RBC 3.54 L Hgb 9.1 L Hct 29.1 L MCV 82 L MCH 26 L MCHC 31 L RDW 19.6 H Plt Count Lymph % (Auto) 6.6 L [place] % (Auto) Eos % (Auto) Baso % (Auto) 1.9 H Lymph # 0.8 L [place] # Eos # Baso # 0.2 H Seg Neutrophils % 82.6 H Seg Neuts % (Manual) Lymphocytes % (Manual) Eosinophils % (Manual) Seg Neutrophils # 9.6 H Lymphocytes # (Manual) Eosinophils # (Manual) PT INR D-Dimer POC ABG pH POC ABG pCO2 POC ABG pO2 ABG pO2 ABG HCO3 ABG Base Excess ABG Hemoglobin Oxyhemoglobin Sodium Potassium Chloride Carbon Dioxide BUN Creatinine Glucose POC Glucose 143 H 153 H Calcium Phosphorus Magnesium ALT Alkaline Phosphatase Total Creatine Kinase CK-MB (CK-2) Rel Index Troponin T Albumin LDL Cholesterol Direct PTH Intact Salicylates Acetaminophen Crossmatch 05/08/19 05/08/19 05/09/19 06:09 16:55 03:27 WBC RBC Hgb Hct MCV MCH MCHC RDW Plt Count Lymph % (Auto) [place] % (Auto) Eos % (Auto) Baso % (Auto) Lymph # [place] # Eos # Baso # Seg Neutrophils % Seg Neuts % (Manual) Lymphocytes % (Manual) Eosinophils % (Manual) Seg Neutrophils # Lymphocytes # (Manual) Eosinophils # (Manual) PT INR D-Dimer POC ABG pH POC ABG pCO2 POC ABG pO2 ABG pO2 ABG HCO3 ABG Base Excess ABG Hemoglobin Oxyhemoglobin Sodium Potassium Chloride Carbon Dioxide BUN Creatinine Glucose POC Glucose 204 H 196 H 175 H Calcium Phosphorus Magnesium ALT Alkaline Phosphatase Total Creatine Kinase CK-MB (CK-2) Rel Index Troponin T Albumin LDL Cholesterol Direct PTH Intact Salicylates Acetaminophen Crossmatch 05/09/19 05/09/19 05/09/19 06:00 11:00 12:41 WBC 12.0 H RBC Hgb 9.7 L Hct 30.2 L MCV 83 L MCH 26 L MCHC RDW 20.1 H Plt Count Lymph % (Auto) 7.4 L [place] % (Auto) 7.6 H Eos % (Auto) Baso % (Auto) Lymph # 0.9 L [place] # 0.9 H Eos # Baso # Seg Neutrophils % 80.7 H Seg Neuts % (Manual) Lymphocytes % (Manual) Eosinophils % (Manual) Seg Neutrophils # 9.7 H Lymphocytes # (Manual) Eosinophils # (Manual) PT INR D-Dimer POC ABG pH POC ABG pCO2 POC ABG pO2 ABG pO2 ABG HCO3 ABG Base Excess ABG Hemoglobin Oxyhemoglobin Sodium Potassium Chloride Carbon Dioxide BUN Creatinine Glucose POC Glucose 172 H 168 H Calcium Phosphorus Magnesium ALT Alkaline Phosphatase Total Creatine Kinase CK-MB (CK-2) Rel Index Troponin T Albumin LDL Cholesterol Direct PTH Intact Salicylates Acetaminophen Crossmatch 05/09/19 05/10/19 05/10/19 17:45 01:26 06:07 WBC RBC Hgb Hct MCV MCH MCHC RDW Plt Count Lymph % (Auto) [place] % (Auto) Eos % (Auto) Baso % (Auto) Lymph # [place] # Eos # Baso # Seg Neutrophils % Seg Neuts % (Manual) Lymphocytes % (Manual) Eosinophils % (Manual) Seg Neutrophils # Lymphocytes # (Manual) Eosinophils # (Manual) PT INR D-Dimer POC ABG pH POC ABG pCO2 POC ABG pO2 ABG pO2 ABG HCO3 ABG Base Excess ABG Hemoglobin Oxyhemoglobin Sodium Potassium Chloride Carbon Dioxide BUN Creatinine Glucose POC Glucose 167 H 174 H 179 H Calcium Phosphorus Magnesium ALT Alkaline Phosphatase Total Creatine Kinase CK-MB (CK-2) Rel Index Troponin T Albumin LDL Cholesterol Direct PTH Intact Salicylates Acetaminophen Crossmatch 05/10/19 05/10/19 05/10/19 06:45 12:31 17:18 WBC RBC Hgb Hct MCV MCH MCHC RDW Plt Count Lymph % (Auto) [place] % (Auto) Eos % (Auto) Baso % (Auto) Lymph # [place] # Eos # Baso # Seg Neutrophils % Seg Neuts % (Manual) Lymphocytes % (Manual) Eosinophils % (Manual) Seg Neutrophils # Lymphocytes # (Manual) Eosinophils # (Manual) PT INR D-Dimer POC ABG pH POC ABG pCO2 POC ABG pO2 ABG pO2 ABG HCO3 ABG Base Excess ABG Hemoglobin Oxyhemoglobin Sodium 134 L Potassium Chloride 90.2 L Carbon Dioxide BUN 82 H Creatinine 4.1 H Glucose 195 H POC Glucose 201 H 197 H Calcium Phosphorus Magnesium ALT Alkaline Phosphatase Total Creatine Kinase CK-MB (CK-2) Rel Index Troponin T Albumin LDL Cholesterol Direct PTH Intact Salicylates Acetaminophen Crossmatch 05/11/19 05/11/19 05/11/19 00:20 06:30 17:38 WBC RBC Hgb Hct MCV MCH MCHC RDW Plt Count Lymph % (Auto) [place] % (Auto) Eos % (Auto) Baso % (Auto) Lymph # [place] # Eos # Baso # Seg Neutrophils % Seg Neuts % (Manual) Lymphocytes % (Manual) Eosinophils % (Manual) Seg Neutrophils # Lymphocytes # (Manual) Eosinophils # (Manual) PT INR D-Dimer POC ABG pH POC ABG pCO2 POC ABG pO2 ABG pO2 ABG HCO3 ABG Base Excess ABG Hemoglobin Oxyhemoglobin Sodium Potassium Chloride Carbon Dioxide BUN Creatinine Glucose POC Glucose 131 H 148 H 198 H Calcium Phosphorus Magnesium ALT Alkaline Phosphatase Total Creatine Kinase CK-MB (CK-2) Rel Index Troponin T Albumin LDL Cholesterol Direct PTH Intact Salicylates Acetaminophen Crossmatch 05/12/19 05/12/19 05/12/19 00:44 06:13 07:15 WBC RBC 3.32 L Hgb 8.7 L Hct 27.8 L MCV MCH 26 L MCHC 31 L RDW 19.8 H Plt Count Lymph % (Auto) 6.9 L [place] % (Auto) Eos % (Auto) 6.5 H Baso % (Auto) Lymph # 0.7 L [place] # Eos # 0.6 H Baso # Seg Neutrophils % 78.6 H Seg Neuts % (Manual) Lymphocytes % (Manual) Eosinophils % (Manual) Seg Neutrophils # 7.8 H Lymphocytes # (Manual) Eosinophils # (Manual) PT INR D-Dimer POC ABG pH POC ABG pCO2 POC ABG pO2 ABG pO2 ABG HCO3 ABG Base Excess ABG Hemoglobin Oxyhemoglobin Sodium Potassium Chloride Carbon Dioxide BUN Creatinine Glucose POC Glucose 170 H 133 H Calcium Phosphorus Magnesium ALT Alkaline Phosphatase Total Creatine Kinase CK-MB (CK-2) Rel Index Troponin T Albumin LDL Cholesterol Direct PTH Intact Salicylates Acetaminophen Crossmatch 05/12/19 05/12/19 05/12/19 07:15 11:17 17:37 WBC RBC Hgb Hct MCV MCH MCHC RDW Plt Count Lymph % (Auto) [place] % (Auto) Eos % (Auto) Baso % (Auto) Lymph # [place] # Eos # Baso # Seg Neutrophils % Seg Neuts % (Manual) Lymphocytes % (Manual) Eosinophils % (Manual) Seg Neutrophils # Lymphocytes # (Manual) Eosinophils # (Manual) PT INR D-Dimer POC ABG pH POC ABG pCO2 POC ABG pO2 ABG pO2 ABG HCO3 ABG Base Excess ABG Hemoglobin Oxyhemoglobin Sodium 135 L Potassium Chloride 94.2 L Carbon Dioxide BUN 59 H Creatinine 3.4 H Glucose 134 H POC Glucose 132 H 165 H Calcium Phosphorus Magnesium ALT Alkaline Phosphatase Total Creatine Kinase CK-MB (CK-2) Rel Index Troponin T Albumin LDL Cholesterol Direct PTH Intact Salicylates Acetaminophen Crossmatch 05/13/19 05/13/19 05/13/19 00:15 05:44 16:00 WBC RBC Hgb Hct MCV MCH MCHC RDW Plt Count Lymph % (Auto) [place] % (Auto) Eos % (Auto) Baso % (Auto) Lymph # [place] # Eos # Baso # Seg Neutrophils % Seg Neuts % (Manual) Lymphocytes % (Manual) Eosinophils % (Manual) Seg Neutrophils # Lymphocytes # (Manual) Eosinophils # (Manual) PT INR D-Dimer POC ABG pH POC ABG pCO2 POC ABG pO2 ABG pO2 ABG HCO3 ABG Base Excess ABG Hemoglobin Oxyhemoglobin Sodium Potassium Chloride Carbon Dioxide BUN Creatinine Glucose POC Glucose 144 H 133 H 221 H Calcium Phosphorus Magnesium ALT Alkaline Phosphatase Total Creatine Kinase CK-MB (CK-2) Rel Index Troponin T Albumin LDL Cholesterol Direct PTH Intact Salicylates Acetaminophen Crossmatch 05/14/19 05/14/19 05/14/19 06:44 11:56 16:42 WBC RBC Hgb Hct MCV MCH MCHC RDW Plt Count Lymph % (Auto) [place] % (Auto) Eos % (Auto) Baso % (Auto) Lymph # [place] # Eos # Baso # Seg Neutrophils % Seg Neuts % (Manual) Lymphocytes % (Manual) Eosinophils % (Manual) Seg Neutrophils # Lymphocytes # (Manual) Eosinophils # (Manual) PT INR D-Dimer POC ABG pH POC ABG pCO2 POC ABG pO2 ABG pO2 ABG HCO3 ABG Base Excess ABG Hemoglobin Oxyhemoglobin Sodium Potassium Chloride Carbon Dioxide BUN Creatinine Glucose POC Glucose 187 H 141 H 183 H Calcium Phosphorus Magnesium ALT Alkaline Phosphatase Total Creatine Kinase CK-MB (CK-2) Rel Index Troponin T Albumin LDL Cholesterol Direct PTH Intact Salicylates Acetaminophen Crossmatch 05/15/19 05/15/19 00:11 05:55 WBC RBC Hgb Hct MCV MCH MCHC RDW Plt Count Lymph % (Auto) [place] % (Auto) Eos % (Auto) Baso % (Auto) Lymph # [place] # Eos # Baso # Seg Neutrophils % Seg Neuts % (Manual) Lymphocytes % (Manual) Eosinophils % (Manual) Seg Neutrophils # Lymphocytes # (Manual) Eosinophils # (Manual) PT INR D-Dimer POC ABG pH POC ABG pCO2 POC ABG pO2 ABG pO2 ABG HCO3 ABG Base Excess ABG Hemoglobin Oxyhemoglobin Sodium Potassium Chloride Carbon Dioxide BUN Creatinine Glucose POC Glucose 169 H 119 H Calcium Phosphorus Magnesium ALT Alkaline Phosphatase Total Creatine Kinase CK-MB (CK-2) Rel Index Troponin T Albumin LDL Cholesterol Direct PTH Intact Salicylates Acetaminophen Crossmatch
[2019-05-15] MEDS: SODIUM HYPOCHLORITE, DAKIN'S 1/2 STRENGTH (0.25%) 473 ML TOPICAL SOLN TP SCH ×2 (14:45→22:56)
--- NOTE | 2019-05-15 16:47 | Progress Note ---
Assessment and Plan Assessment: * End stage renal disease (outpatient TTS schedule) * Acute hypoxic respiratory failure s/p trach * KEON pneumonia --Sputum cx: MDR Acinetobacter * Cardiomyopathy - EF 35-40% * Atrial fibrillation * History of CVA * Anemia secondary to ESRD * Secondary hyperparathyroidism Plan * Continue HD MWF via LUE AVG, had today * UF as tolerated * Nutrition per primary team * Dose medications for renal function * continue Epogen 20k TIW * Weekly labs We will continue to follow patient for renal related issues. Subjective Principal diagnosis: Respiratory failure, acute on chronic systolic HF, ESRD Interval history: no acute issues noted overnight. tolerating HD sessions per HD nurses, had HD this morning. patient remains at baseline poor mental status Objective - Exam Narrative Exam: General appearance: chronically ill, intubated, frail EENT: normocephalic Neck: trach collar in place Respiratory: coarse mechanical breath sounds bilaterally Cardiology: regular, S1S2, no edema Gastrointestinal: PEG and colostomy noted Integumentary: warm and dry Psychiatric: unable to assess - Vital Signs Vital signs: Vital Signs - 12hr 05/15/19 05/15/19 05/15/19 07:49 08:58 09:01 Temperature 98.7 F Pulse Rate 111 H Pulse Rate [ 120 H Anterior Bilateral Throughout] Pulse Rate [ Apical] Respiratory 18 Rate Respiratory 18 Rate [Anterior Bilateral Throughout] Blood Pressure 118/64 O2 Sat by Pulse 100 100 Oximetry O2 Sat by Pulse Oximetry [ Assessment] 05/15/19 05/15/19 05/15/19 09:19 09:28 09:30 Temperature 99.6 F Pulse Rate 123 H 123 H 116 H Pulse Rate [ Anterior Bilateral Throughout] Pulse Rate [ Apical] Respiratory 18 Rate Respiratory Rate [Anterior Bilateral Throughout] Blood Pressure 130/69 122/66 120/50 O2 Sat by Pulse Oximetry O2 Sat by Pulse Oximetry [ Assessment] 05/15/19 05/15/19 05/15/19 09:45 10:00 10:15 Temperature Pulse Rate 130 H 128 H 129 H Pulse Rate [ Anterior Bilateral Throughout] Pulse Rate [ Apical] Respiratory Rate Respiratory Rate [Anterior Bilateral Throughout] Blood Pressure 106/57 115/55 115/53 O2 Sat by Pulse Oximetry O2 Sat by Pulse Oximetry [ Assessment] 05/15/19 05/15/19 05/15/19 10:30 10:45 11:00 Temperature Pulse Rate 125 H 130 H 95 H Pulse Rate [ Anterior Bilateral Throughout] Pulse Rate [ Apical] Respiratory Rate Respiratory Rate [Anterior Bilateral Throughout] Blood Pressure 110/55 116/74 117/61 O2 Sat by Pulse Oximetry O2 Sat by Pulse Oximetry [ Assessment] 05/15/19 05/15/19 05/15/19 11:15 11:30 11:45 Temperature Pulse Rate 119 H 103 H 103 H Pulse Rate [ Anterior Bilateral Throughout] Pulse Rate [ Apical] Respiratory Rate Respiratory Rate [Anterior Bilateral Throughout] Blood Pressure 99/69 106/65 106/48 O2 Sat by Pulse Oximetry O2 Sat by Pulse Oximetry [ Assessment] 05/15/19 05/15/19 05/15/19 12:15 12:30 12:45 Temperature Pulse Rate 108 H 80 97 H Pulse Rate [ Anterior Bilateral Throughout] Pulse Rate [ Apical] Respiratory Rate Respiratory Rate [Anterior Bilateral Throughout] Blood Pressure 120/45 90/45 100/40 O2 Sat by Pulse Oximetry O2 Sat by Pulse Oximetry [ Assessment] 05/15/19 05/15/19 05/15/19 13:00 13:15 13:25 Temperature 97.5 F L Pulse Rate 123 H 86 86 Pulse Rate [ Anterior Bilateral Throughout] Pulse Rate [ Apical] Respiratory 18 Rate Respiratory Rate [Anterior Bilateral Throughout] Blood Pressure 110/59 117/52 117/52 O2 Sat by Pulse Oximetry O2 Sat by Pulse Oximetry [ Assessment] 05/15/19 05/15/19 14:10 14:25 Temperature Pulse Rate Pulse Rate [ Anterior Bilateral Throughout] Pulse Rate [ 100 H Apical] Respiratory Rate Respiratory Rate [Anterior Bilateral Throughout] Blood Pressure O2 Sat by Pulse Oximetry O2 Sat by Pulse 98 Oximetry [ Assessment] - Lab 05/12/19 07:15 05/12/19 07:15 Most recent lab results ABG pH 7.424 pH Units (7.350-7.450) 03/19/19 04:23 ABG pCO2 48.0 mm Hg 03/19/19 04:23 ABG pO2 78.3 mm Hg (80.0-90.0) L 03/19/19 04:23 ABG HCO3 30.7 mmol/L (20.0-26.0) H 03/19/19 04:23 ABG O2 Saturation 97.0 % (95.0-99.0) 03/19/19 04:23 Calcium 9.5 mg/dL (8.4-10.2) 05/12/19 07:15 Phosphorus 4.30 mg/dL (2.5-4.5) D 03/31/19 10:26 Magnesium 2.70 mg/dL (1.7-2.3) H 03/30/19 10:13 Medications & Allergies - Medications Allergies/Adverse Reactions: Allergies haloperidol [From Haldol] Adverse Reaction (Verified 03/13/18 12:10) Unknown haloperidol lactate [From Haldol] Adverse Reaction (Verified 03/13/18 12:10) Unknown Home Medications: Home Medications Medication Instructions Recorded Confirmed Last Taken Type risperiDONE [RisperDAL] 1 mg PO QAM 03/13/18 02/21/19 Unknown History Sertraline [Zoloft] 100 mg PO QDAY 08/26/18 02/21/19 Unknown History Polyethylene Glycol 3350 [Miralax 17 gm PO QDAY #30 packet 11/05/18 02/21/19 Unknown Rx 3350] Aspirin EC [Halfprin EC] 81 mg PO DAILY #30 11/19/18 02/21/19 Unknown Rx Docusate Sodium [Colace CAP] 100 mg PO BID #60 11/19/18 02/21/19 Unknown Rx Folic Acid [Folvite] 1 mg PO DAILY #30 tab 11/19/18 02/21/19 Unknown Rx Famotidine [Pepcid] 20 mg PO DAILY tablet 12/08/18 02/21/19 Unknown Rx Gabapentin 100 mg PO QHS capsule 12/08/18 02/21/19 Unknown Rx Metoprolol [Lopressor TAB] 50 mg PO BID 30 Days tablet 12/08/18 02/21/19 Unknown Rx Sevelamer Carbonate [Renvela] 800 mg PO TIDWM tablet 12/08/18 02/21/19 Unknown Rx hydrALAZINE [Apresoline TAB] 100 mg PO Q8HR #120 tablet 12/08/18 02/21/19 Unknown Rx Acetaminophen [Acetaminophen TAB] 650 mg PO Q12H PRN 12/15/18 02/21/19 Unknown History Glucagon,Human Recombinant 1 mg IJ Q15MIN PRN 12/15/18 02/21/19 Unknown History [Glucagon Emergency Kit] Insulin Aspart [NovoLOG 100 See Protocol SQ QWEEK 12/15/18 02/21/19 Unknown History UNITS/ML VIAL] Active Medications: Generic Name Dose Route Start Last Admin Trade Name Freq PRN Reason Stop Dose Admin Albuterol/Ipratropium 1 ampul 02/24/19 20:00 05/15/19 13:31 Duoneb *Not For Prn Use* IH Not Given TIDRT SANCHEZ Lipase/Protease/Amylase 1 each 04/10/19 15:16 Pancreaze 10,500 Unit FEEDTUBE PRN PRN For Clogged Feeding Tube Epoetin Solitario 20,000 unit 03/24/19 11:17 05/15/19 12:01 Procrit IV 20,000 unit UMA PRN Administration hemodialysis Famotidine 20 mg 02/23/19 10:00 05/14/19 11:13 Pepcid PO 20 mg DAILY SANCHEZ Administration Sodium Chloride 100 mls @ 999 mls/hr 05/13/19 12:45 Nacl 0.9% IV UMA PRN Hypotension Insulin Human Regular 0 units 02/26/19 12:00 05/15/19 07:06 Humulin R SUB-Q 1 units Q6HR SANCHEZ Administration Protocol Metoprolol Tartrate 2.5 mg 02/28/19 12:06 03/15/19 05:15 Lopressor IV 2.5 mg Q4HR PRN Administration Tachycardia Risperidone 1 mg 02/25/19 13:00 05/14/19 11:13 Risperdal PO 1 mg DAILY SANCHEZ Administration Sertraline HCl 100 mg 02/25/19 13:00 05/14/19 11:13 Zoloft PO 100 mg DAILY SANCHEZ Administration Simple Syrup 15 ml 04/10/19 15:16 Simple Syrup FEEDTUBE PRN PRN Hypoglycemia Simple Syrup 30 ml 04/10/19 15:16 Simple Syrup FEEDTUBE PRN PRN Hypoglycemia Sodium Bicarbonate 325 mg 04/10/19 15:16 Sodium Bicarbonate FEEDTUBE PRN PRN For Clogged Feeding Tube Sodium Hypochlorite 1 applic 04/01/19 13:00 05/15/19 14:45 Dakin's Half Strength TP 1 applicatio BID SANCHEZ Administration
[2019-05-15] MEDS: FAMOTIDINE 20 MG TAB PO SCH (17:18)
[2019-05-15] MEDS: SERTRALINE 100 MG TAB PO SCH (17:18)
[2019-05-15] MEDS: risperiDONE 1 MG TAB PO SCH (17:18)
[2019-05-16] MEDS: INSULIN REGULAR, HUMAN 100 UNITS/1 ML SUB-Q SCH ×4 (01:34→18:31)
[2019-05-16] MEDS: IPRATROPIUM/ALBUTEROL SULFATE 3 ML AMPUL.NEB IH SCH ×3 (08:14→19:30)
[2019-05-16] MEDS: SERTRALINE 100 MG TAB PO SCH (10:23)
[2019-05-16] MEDS: FAMOTIDINE 20 MG TAB PO SCH (10:23)
[2019-05-16] MEDS: SODIUM HYPOCHLORITE, DAKIN'S 1/2 STRENGTH (0.25%) 473 ML TOPICAL SOLN TP SCH ×2 (10:24→22:16)
[2019-05-16] MEDS: risperiDONE 1 MG TAB PO SCH (10:24)
--- NOTE | 2019-05-16 14:43 | Progress Note ---
Assessment and Plan Assessment and plan: Patient is a 63-year-old -[place] man from [facility] with a plethora of co-morbidities including blindness, CVA, CHF, PPM/ICD, loop recorder since 2012 that is MRI compatible, IDDM type 2, sepsis left foot ulcer, afib, ESRD with complications on HD TTS, hypertension, AOCD and GERD who presented to the ED with hypotensive after intubation in the emergency room. Still intubated, diagnosed with fluid overload, pleural effusion. Patient has had recurrent admission in the hospital for similar reason and was recently discharged from the hospital following treatment of Severe Sepsis due to Necrotizing Unstagable sacral decubitus ulcer with ostemomylitis, expected to complete abx on discharg e till 02/16/19. Trach and peg done HR control improved with change in BB. Acute respiratory failure on mechanical ventilator >96 hrs Trach placed on 03/03/19 Pulm consult appreciated weaning trial VAP BUNDLE ASPIRATION BUNDLE Continue T-piece Finished therapy for Acinetobacter Acute pulmonary edema, fluid overload on CXR repeat xray intermittently Dialysis Necrotizing Unstagable sacral decubitus ulcer with ostemomyelitis Wound care, Dilated CMP Cardiomyiopathy EF 35-40% Continue diuresis PPM/ICD Acute encephalopathy, probably metabolic or toxic Continues on Mechanical ventilator. ESRD on hemodialysis nephrology following Vascular eval. done re: LUE AV graft, see note Bilateral pleural effusions Anticipate improvement with Permanent atrial fibrillation and flutter Not on anticoagulation because of anemia thrombocytopenia Change noted to BB agent to IV. Diabetes mellitus type 2 Fingerstick Q4h NSTEMI type 2 Cardiology following Schizophrenia continue home meds Legally blind supportive care hypertension Monitor BP Hypokalemia resolved Pulmonary hypertension by history Dysphagia s/p PEG tube Severe malnutrition/hypoalbuminemia with FTT: 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, obstetrician following PEG placed on 01/02/19 Decubitus ulcer s/;p colostomy wound care consult History of sacral osteomyelitis and LE ulcers Completed Antibiotics Place on contact isolation for ESBL Klebsiella pneumonia on wound culture 01/02/19 h/o Peripheral neuropathy: Continue gabapentin Anemia of chronic disease -s/p total of 8 units PRBC, follow cbc- no occult GI bleed noted. -Pt is s/p x1 DDVAP RUL atelectasis, nebs as needed DVT prophylaxis Lovenox DNR poor prognosis Disposition: Awaiting on HD setup History Interval history: Patient was seen and examined. Follow-up on current diagnosis. No overnight events reported to me. Patient is mainly nonverbal. Imaging, nursing note, chart, labs and old chart reviewed. Hospitalist Physical - Physical exam Narrative exam: Gen: severely disable, nad, awake alert x 1 HEENT: NCAT, EOMI, PERRL, OP Clear Neck: supple, trach CVS/Heart: irreg irregular, normal S1S2, pulses present bilaterally Chest/Lungs: diminished bs ymmetrical chest expansion, good air entry bilaterally GI/Abdomen:peg, colostomy present, good bowel sounds, no guarding or rebound /Bladder: no suprapubic tenderness, no CVA or paraspinal tenderness Extermity/Skin: no c/c/e, no obvious rash MSK: no FROM x 4 Neuro: CN 2-12 grossly intact except vision, no new focal deficits Psych: calm - Constitutional Vitals: Temp Pulse Resp BP Pulse Ox 98.5 F 115 H 20 101/55 99 05/16/19 05:07 05/16/19 13:59 05/16/19 13:59 05/16/19 05:07 05/16/19 10:00 General appearance: Present: no acute distress, other (T peace). Absent: well- nourished Results - Labs CBC & Chem 7: 05/12/19 07:15 05/12/19 07:15 Labs: Laboratory Last Values WBC 9.9 K/mm3 (4.5-11.0) 05/12/19 07:15 RBC 3.32 M/mm3 (3.65-5.03) L 05/12/19 07:15 Hgb 8.7 gm/dl (11.8-15.2) L 05/12/19 07:15 Hct 27.8 % (35.5-45.6) L 05/12/19 07:15 MCV 84 fl (84-94) 05/12/19 07:15 MCH 26 pg (28-32) L 05/12/19 07:15 MCHC 31 % (32-34) L 05/12/19 07:15 RDW 19.8 % (13.2-15.2) H 05/12/19 07:15 Plt Count 325 K/mm3 (140-440) 05/12/19 07:15 Lymph % (Auto) 6.9 % (13.4-35.0) L 05/12/19 07:15 [place] % (Auto) 7.3 % (0.0-7.3) 05/12/19 07:15 Eos % (Auto) 6.5 % (0.0-4.3) H 05/12/19 07:15 Baso % (Auto) 0.7 % (0.0-1.8) 05/12/19 07:15 Lymph # 0.7 K/mm3 (1.2-5.4) L 05/12/19 07:15 [place] # 0.7 K/mm3 (0.0-0.8) 05/12/19 07:15 Eos # 0.6 K/mm3 (0.0-0.4) H 05/12/19 07:15 Baso # 0.1 K/mm3 (0.0-0.1) 05/12/19 07:15 Add Manual Diff Complete 03/21/19 06:30 Total Counted 100 03/21/19 06:30 Seg Neutrophils % 78.6 % (40.0-70.0) H 05/12/19 07:15 Seg Neuts % (Manual) 81.0 % (40.0-70.0) H 03/21/19 06:30 Band Neutrophils % 0 % 03/21/19 06:30 Lymphocytes % (Manual) 8.0 % (13.4-35.0) L 03/21/19 06:30 Reactive Lymphs % (Man) 0 % 03/21/19 06:30 Monocytes % (Manual) 1.0 % (0.0-7.3) 03/21/19 06:30 Eosinophils % (Manual) 8.0 % (0.0-4.3) H 03/21/19 06:30 Basophils % (Manual) 1.0 % (0.0-1.8) 03/21/19 06:30 Metamyelocytes % 1.0 % 03/21/19 06:30 Myelocytes % 0 % 03/21/19 06:30 Promyelocytes % 0 % 03/21/19 06:30 Blast Cells % 0 % 03/21/19 06:30 Nucleated RBC % Not Reportable 03/21/19 06:30 Seg Neutrophils # 7.8 K/mm3 (1.8-7.7) H 05/12/19 07:15 Seg Neutrophils # Man 6.7 K/mm3 (1.8-7.7) 03/21/19 06:30 Band Neutrophils # 0.0 K/mm3 03/21/19 06:30 Lymphocytes # (Manual) 0.7 K/mm3 (1.2-5.4) L 03/21/19 06:30 Abs React Lymphs (Man) 0.0 K/mm3 03/21/19 06:30 Monocytes # (Manual) 0.1 K/mm3 (0.0-0.8) 03/21/19 06:30 Eosinophils # (Manual) 0.7 K/mm3 (0.0-0.4) H 03/21/19 06:30 Basophils # (Manual) 0.1 K/mm3 (0.0-0.1) 03/21/19 06:30 Metamyelocytes # 0.1 K/mm3 03/21/19 06:30 Myelocytes # 0.0 K/mm3 03/21/19 06:30 Promyelocytes # 0.0 K/mm3 03/21/19 06:30 Blast Cells # 0.0 K/mm3 03/21/19 06:30 WBC Morphology Not Reportable 03/21/19 06:30 Hypersegmented Neuts Not Reportable 03/21/19 06:30 Hyposegmented Neuts Not Reportable 03/21/19 06:30 Hypogranular Neuts Not Reportable 03/21/19 06:30 Smudge Cells Not Reportable 03/21/19 06:30 Toxic Granulation Not Reportable 03/21/19 06:30 Toxic Vacuolation Not Reportable 03/21/19 06:30 Dohle Bodies Not Reportable 03/21/19 06:30 Pelger-Huet Anomaly Not Reportable 03/21/19 06:30 Tramaine Rods Not Reportable 03/21/19 06:30 Platelet Estimate Consistent w auto 03/21/19 06:30 Clumped Platelets Not Reportable 03/21/19 06:30 Plt Clumps, EDTA Not Reportable 03/21/19 06:30 Large Platelets Not Reportable 03/21/19 06:30 Giant Platelets Not Reportable 03/21/19 06:30 Platelet Satelliting Not Reportable 03/21/19 06:30 Plt Morphology Comment Not Reportable 03/21/19 06:30 RBC Morphology Not Reportable 03/21/19 06:30 Dimorphic RBCs Not Reportable 03/21/19 06:30 Polychromasia Not Reportable 03/21/19 06:30 Hypochromasia Few 03/21/19 06:30 Poikilocytosis Few 03/21/19 06:30 Anisocytosis Few 03/21/19 06:30 Microcytosis Not Reportable 03/21/19 06:30 Macrocytosis Not Reportable 03/21/19 06:30 Spherocytes Not Reportable 03/21/19 06:30 Pappenheimer Bodies Not Reportable 03/21/19 06:30 Sickle Cells Not Reportable 03/21/19 06:30 Target Cells 1+ 03/21/19 06:30 Tear Drop Cells Not Reportable 03/21/19 06:30 Ovalocytes Few 03/21/19 06:30 Helmet Cells Not Reportable 03/21/19 06:30 Zhou-[place] Bodies Not Reportable 03/21/19 06:30 [place] Rings Not Reportable 03/21/19 06:30 Hebert Cells Not Reportable 03/21/19 06:30 Bite Cells Not Reportable 03/21/19 06:30 Crenated Cell Not Reportable 03/21/19 06:30 Elliptocytes Not Reportable 03/21/19 06:30 Acanthocytes (Spur) Not Reportable 03/21/19 06:30 Rouleaux Not Reportable 03/21/19 06:30 Hemoglobin C Crystals Not Reportable 03/21/19 06:30 Schistocytes Not Reportable 03/21/19 06:30 Malaria parasites Not Reportable 03/21/19 06:30 Jose Juan Bodies Not Reportable 03/21/19 06:30 Hem Pathologist Commnt No 03/21/19 06:30 PT 16.3 Sec. (12.2-14.9) H 03/01/19 09:39 INR 1.35 (0.87-1.13) H 03/01/19 09:39 APTT 33.7 Sec. (24.2-36.6) 02/21/19 18:30 D-Dimer 2987.82 ng/mlDDU (0-234) H 02/22/19 05:54 POC ABG pH 7.510 (7.35-7.45) H 03/18/19 06:38 ABG pH 7.424 pH Units (7.350-7.450) 03/19/19 04:23 POC ABG pCO2 38.9 (35-45) 03/18/19 06:38 ABG pCO2 48.0 mm Hg 03/19/19 04:23 POC ABG pO2 164 (80-105) H 03/18/19 06:38 ABG pO2 78.3 mm Hg (80.0-90.0) L 03/19/19 04:23 POC ABG HCO3 31.0 (22-26 mml/L) 03/18/19 06:38 ABG HCO3 30.7 mmol/L (20.0-26.0) H 03/19/19 04:23 POC ABG Total CO2 32 (23-27mmol/L) 03/18/19 06:38 POC ABG O2 Sat 100 03/18/19 06:38 ABG O2 Saturation 97.0 % (95.0-99.0) 03/19/19 04:23 ABG O2 Content 7.9 (0.0-44) 03/19/19 04:23 POC ABG Base Excess 8 ((-2) - (+3)mmol/L) 03/18/19 06:38 ABG Base Excess 5.8 mmol/L (-2.0-3.0) H 03/19/19 04:23 ABG Hemoglobin 5.8 gm/dl (14.0-18.0) L 03/19/19 04:23 ABG Carboxyhemoglobin 2.0 % (0.0-5.0) 03/19/19 04:23 ABG Methemoglobin 0.4 % (0.0-1.5) 03/19/19 04:23 Oxyhemoglobin 94.6 % (95.0-99.0) L 03/19/19 04:23 FiO2 35 % 03/19/19 04:23 Sodium 135 mmol/L (137-145) L 05/12/19 07:15 Potassium 3.7 mmol/L (3.6-5.0) 05/12/19 07:15 Chloride 94.2 mmol/L (98-107) L 05/12/19 07:15 Carbon Dioxide 26 mmol/L (22-30) 05/12/19 07:15 Anion Gap 19 mmol/L 05/12/19 07:15 BUN 59 mg/dL (9-20) H 05/12/19 07:15 Creatinine 3.4 mg/dL (0.8-1.5) H 05/12/19 07:15 Estimated GFR 22 ml/min 05/12/19 07:15 BUN/Creatinine Ratio 17 % 05/12/19 07:15 Glucose 134 mg/dL (75-100) H 05/12/19 07:15 POC Glucose 207 (70-105) H 05/16/19 12:47 Lactic Acid 1.00 mmol/L (0.7-2.0) 02/21/19 20:58 Calcium 9.5 mg/dL (8.4-10.2) 05/12/19 07:15 Phosphorus 4.30 mg/dL (2.5-4.5) D 03/31/19 10:26 Magnesium 2.70 mg/dL (1.7-2.3) H 03/30/19 10:13 Total Bilirubin 0.20 mg/dL (0.1-1.2) 03/30/19 10:13 AST 16 units/L (5-40) 03/30/19 10:13 ALT 11 units/L (7-56) 03/30/19 10:13 Alkaline Phosphatase 185 units/L (35-129) H 03/30/19 10:13 Ammonia 28.0 umol/L (25-60) 02/21/19 20:04 Total Creatine Kinase 64 units/L (55-170) 02/22/19 03:42 CK-MB (CK-2) 3.7 ng/mL (0.0-4.0) 02/22/19 03:42 CK-MB (CK-2) Rel Index 5.7 (0-4) H 02/22/19 03:42 Troponin T 0.193 ng/mL (0.00-0.029) H* 02/22/19 03:42 Total Protein 6.9 g/dL (6.3-8.2) 03/30/19 10:13 Albumin 2.6 g/dL (3.9-5) L 03/30/19 10:13 Albumin/Globulin Ratio 0.6 % 03/30/19 10:13 Triglycerides 51 mg/dL (2-149) 02/21/19 18:30 Cholesterol 82 mg/dL (50-199) 02/21/19 18:30 LDL Cholesterol Direct 36 mg/dL (50-130) L 02/21/19 18:30 HDL Cholesterol 40 mg/dL (40-59) 02/21/19 18:30 Cholesterol/HDL Ratio 2.05 % 02/21/19 18:30 TSH 2.760 mlU/mL (0.270-4.200) 02/21/19 20:04 PTH Intact 267.6 pg/mL (15-65) H 03/02/19 05:15 Salicylates < 0.3 mg/dL (2.8-20.0) L 02/21/19 20:04 Acetaminophen < 5.0 ug/mL (10.0-30.0) L 02/21/19 20:04 Hepatitis A IgM Ab Non-reactive (NonReactive) 04/30/19 14:11 Hep Bs Antigen Non-reactive (Negative) 04/30/19 14:11 Hep B Core IgM Ab Non-reactive (NonReactive) 04/30/19 14:11 Hepatitis C Antibody Non-reactive (NonReactive) 04/30/19 14:11 Blood Type O POSITIVE 05/04/19 12:55 Antibody Screen Negative 05/04/19 12:55 Crossmatch See Detail 05/04/19 12:55 Active Medications - Current Medications Current Medications: Generic Name Dose Route Start Last Admin Trade Name Freq PRN Reason Stop Dose Admin Albuterol/Ipratropium 1 ampul 02/24/19 20:00 05/16/19 13:58 Duoneb *Not For Prn Use* IH 1 ampul TIDRT SANCHEZ Administration Lipase/Protease/Amylase 1 each 04/10/19 15:16 Pancreaze 10,500 Unit FEEDTUBE PRN PRN For Clogged Feeding Tube Epoetin Solitario 20,000 unit 03/24/19 11:17 05/15/19 12:01 Procrit IV 20,000 unit UMA PRN Administration hemodialysis Famotidine 20 mg 02/23/19 10:00 05/16/19 10:23 Pepcid PO 20 mg DAILY SANCHEZ Administration Sodium Chloride 100 mls @ 999 mls/hr 05/13/19 12:45 Nacl 0.9% IV UMA PRN Hypotension Insulin Human Regular 0 units 02/26/19 12:00 05/16/19 14:24 Humulin R SUB-Q 2 units Q6HR SANCHEZ Administration Protocol Metoprolol Tartrate 2.5 mg 02/28/19 12:06 03/15/19 05:15 Lopressor IV 2.5 mg Q4HR PRN Administration Tachycardia Risperidone 1 mg 02/25/19 13:00 05/16/19 10:24 Risperdal PO 1 mg DAILY SANCHEZ Administration Sertraline HCl 100 mg 02/25/19 13:00 05/16/19 10:23 Zoloft PO 100 mg DAILY SANCHEZ Administration Simple Syrup 15 ml 04/10/19 15:16 Simple Syrup FEEDTUBE PRN PRN Hypoglycemia Simple Syrup 30 ml 04/10/19 15:16 Simple Syrup FEEDTUBE PRN PRN Hypoglycemia Sodium Bicarbonate 325 mg 04/10/19 15:16 Sodium Bicarbonate FEEDTUBE PRN PRN For Clogged Feeding Tube Sodium Hypochlorite 1 applic 04/01/19 13:00 05/16/19 10:24 Dakin's Half Strength TP 1 applicatio BID SANCHEZ Administration Nutrition/Malnutrition Assess - Dietary Evaluation Nutrition/Malnutrition Findings: Nutrition Notes Start: 02/22/19 12:51 Freq: Status: Active Protocol: Document 05/15/19 16:23 RM (Rec: 05/15/19 16:30 RM [email or web address]) Nutrition Notes Initial or Follow up Reassessment Current Diagnosis Diabetes,Hypertension,Heart Failure Other Pertinent Diagnosis Sacral PU, ESRD on HD (T/Thurs /Sat), Schizophrenia,Blind in L eye,S/P trach Current Diet Nepro at 50 ml/hr w/Abhilash BID Labs/Tests POC 183, 169,119 Pertinent Medications Reviewed Height 5 ft 10 in Weight 75.5 kg [place] Body Weight (kg) 75.45 BMI 23.8 Subjective/Other Information Observed Nepro infusing at goal rate. Per nurse pt is tolerating TF. Nurse also stated that she was unaware of Abhilash order and has not given it to pt today. [employer] App[employer]ice explained the purpose of Abhilash and that administration instructions are in the diet order. Nurse stated that she will administer Abhilash to pt. Percent of energy/protein needs met: 100%/100% Burn Absent Trauma Absent Minimum of two criteria No #2 Nutrition Diagnosis Increased nutrient needs ( specify in comment below) Diagnosis Progress(for reassessment Continues documentation) #1 Nutrition Diagnosis Inadequate oral intake Diagnosis Progress(for reassessment Continues documentation) Is patient on ventilator? No Is Patient Ambulatory and/or Out of Bed No REE-([facility]-confined to bed) 1866.744 Kcal/Kg value to use for calculation 31 Approximate Energy Requirements Using 2341 kcal/Kg Calculation Used for Recommendations [facility] Additional Notes Protein Needs:90 - 112 g (1.2- 1.5 g/kg) Fluid Needs: 1-1.5 L/day Nutrition Intervention Change Diet Order: Continue TF Nutrition Support: Nepro with Carbsteady 1.8 at 50 ml/hr Flush 200 ml q4hr Kcal 2,160 Protein (gm) 97 Fluid (mL) 872 Add Supplement/Snack (indicate name/kcal Abhilash BID /protein ) Provides kCal: 190 Provides Protein (gm) 5 Goal #1 TF tolerance Goal #2 Continue to meet at least 75% of calorie and protein needs via TF Anticipated Discharge Needs: TF Follow-Up By: 05/19/19 Additional Comments Follow for TF tolerance, receiving Abhilash
--- NOTE | 2019-05-16 18:46 | Progress Note ---
Assessment and Plan Assessment: * End stage renal disease (outpatient TTS schedule) * Acute hypoxic respiratory failure s/p trach * KEON pneumonia --Sputum cx: MDR Acinetobacter * Cardiomyopathy - EF 35-40% * Atrial fibrillation * History of CVA * Anemia secondary to ESRD * Secondary hyperparathyroidism Plan * Continue HD MWF via LUE AVG, due on 05/18/18 * UF as tolerated * Nutrition per primary team * Dose medications for renal function * continue Epogen 20k TIW * Weekly labs We will continue to follow patient for renal related issues. Subjective Date of service: 05/16/19 Principal diagnosis: Respiratory failure, acute on chronic systolic HF, ESRD Interval history: no acute issues noted overnight. tolerating HD sessions per HD nurses, had HD yesterday. patient remains at baseline poor mental status Objective - Exam Narrative Exam: General appearance: chronically ill, intubated, frail EENT: normocephalic Neck: trach collar in place Respiratory: coarse mechanical breath sounds bilaterally Cardiology: regular, S1S2, no edema Gastrointestinal: PEG and colostomy noted Integumentary: warm and dry Psychiatric: unable to assess - Vital Signs Vital signs: Vital Signs - 12hr 05/16/19 05/16/19 05/16/19 08:00 08:19 10:00 Pulse Rate 117 H Pulse Rate [ 112 H Anterior Bilateral Throughout] Respiratory 18 Rate Respiratory 20 Rate [Anterior Bilateral Throughout] Blood Pressure O2 Sat by Pulse 100 99 Oximetry O2 Sat by Pulse Oximetry [ Assessment] 05/16/19 05/16/19 05/16/19 10:08 11:10 12:39 Pulse Rate 65 Pulse Rate [ Anterior Bilateral Throughout] Respiratory Rate Respiratory Rate [Anterior Bilateral Throughout] Blood Pressure 110/58 107/64 O2 Sat by Pulse 59 L Oximetry O2 Sat by Pulse 98 Oximetry [ Assessment] 05/16/19 05/16/19 05/16/19 13:59 17:38 17:39 Pulse Rate 183 H Pulse Rate [ 115 H Anterior Bilateral Throughout] Respiratory Rate Respiratory 20 Rate [Anterior Bilateral Throughout] Blood Pressure 93/47 88/45 O2 Sat by Pulse 96 Oximetry O2 Sat by Pulse Oximetry [ Assessment] - Lab 05/12/19 07:15 05/12/19 07:15 Most recent lab results ABG pH 7.424 pH Units (7.350-7.450) 03/19/19 04:23 ABG pCO2 48.0 mm Hg 03/19/19 04:23 ABG pO2 78.3 mm Hg (80.0-90.0) L 03/19/19 04:23 ABG HCO3 30.7 mmol/L (20.0-26.0) H 03/19/19 04:23 ABG O2 Saturation 97.0 % (95.0-99.0) 03/19/19 04:23 Calcium 9.5 mg/dL (8.4-10.2) 05/12/19 07:15 Phosphorus 4.30 mg/dL (2.5-4.5) D 03/31/19 10:26 Magnesium 2.70 mg/dL (1.7-2.3) H 03/30/19 10:13 Medications & Allergies - Medications Allergies/Adverse Reactions: Allergies haloperidol [From Haldol] Adverse Reaction (Verified 03/13/18 12:10) Unknown haloperidol lactate [From Haldol] Adverse Reaction (Verified 03/13/18 12:10) Unknown Home Medications: Home Medications Medication Instructions Recorded Confirmed Last Taken Type risperiDONE [RisperDAL] 1 mg PO QAM 03/13/18 02/21/19 Unknown History Sertraline [Zoloft] 100 mg PO QDAY 08/26/18 02/21/19 Unknown History Polyethylene Glycol 3350 [Miralax 17 gm PO QDAY #30 packet 11/05/18 02/21/19 Unknown Rx 3350] Aspirin EC [Halfprin EC] 81 mg PO DAILY #30 11/19/18 02/21/19 Unknown Rx Docusate Sodium [Colace CAP] 100 mg PO BID #60 11/19/18 02/21/19 Unknown Rx Folic Acid [Folvite] 1 mg PO DAILY #30 tab 11/19/18 02/21/19 Unknown Rx Famotidine [Pepcid] 20 mg PO DAILY tablet 12/08/18 02/21/19 Unknown Rx Gabapentin 100 mg PO QHS capsule 12/08/18 02/21/19 Unknown Rx Metoprolol [Lopressor TAB] 50 mg PO BID 30 Days tablet 12/08/18 02/21/19 Unknown Rx Sevelamer Carbonate [Renvela] 800 mg PO TIDWM tablet 12/08/18 02/21/19 Unknown Rx hydrALAZINE [Apresoline TAB] 100 mg PO Q8HR #120 tablet 12/08/18 02/21/19 Unknown Rx Acetaminophen [Acetaminophen TAB] 650 mg PO Q12H PRN 12/15/18 02/21/19 Unknown History Glucagon,Human Recombinant 1 mg IJ Q15MIN PRN 12/15/18 02/21/19 Unknown History [Glucagon Emergency Kit] Insulin Aspart [NovoLOG 100 See Protocol SQ QWEEK 12/15/18 02/21/19 Unknown History UNITS/ML VIAL] Active Medications: Generic Name Dose Route Start Last Admin Trade Name Freq PRN Reason Stop Dose Admin Albuterol/Ipratropium 1 ampul 02/24/19 20:00 05/16/19 13:58 Duoneb *Not For Prn Use* IH 1 ampul TIDRT SANCHEZ Administration Lipase/Protease/Amylase 1 each 04/10/19 15:16 Pancreaze 10,500 Unit FEEDTUBE PRN PRN For Clogged Feeding Tube Epoetin Solitario 20,000 unit 03/24/19 11:17 05/15/19 12:01 Procrit IV 20,000 unit UMA PRN Administration hemodialysis Famotidine 20 mg 02/23/19 10:00 05/16/19 10:23 Pepcid PO 20 mg DAILY SANCHEZ Administration Sodium Chloride 100 mls @ 999 mls/hr 05/13/19 12:45 Nacl 0.9% IV UMA PRN Hypotension Insulin Human Regular 0 units 02/26/19 12:00 05/16/19 18:31 Humulin R SUB-Q 1 units Q6HR SANCHEZ Administration Protocol Metoprolol Tartrate 2.5 mg 02/28/19 12:06 03/15/19 05:15 Lopressor IV 2.5 mg Q4HR PRN Administration Tachycardia Risperidone 1 mg 02/25/19 13:00 05/16/19 10:24 Risperdal PO 1 mg DAILY SANCHEZ Administration Sertraline HCl 100 mg 02/25/19 13:00 05/16/19 10:23 Zoloft PO 100 mg DAILY SANCHEZ Administration Simple Syrup 15 ml 04/10/19 15:16 Simple Syrup FEEDTUBE PRN PRN Hypoglycemia Simple Syrup 30 ml 04/10/19 15:16 Simple Syrup FEEDTUBE PRN PRN Hypoglycemia Sodium Bicarbonate 325 mg 04/10/19 15:16 Sodium Bicarbonate FEEDTUBE PRN PRN For Clogged Feeding Tube Sodium Hypochlorite 1 applic 04/01/19 13:00 05/16/19 10:24 Dakin's Half Strength TP 1 applicatio BID SANCHEZ Administration
[2019-05-17] MEDS: INSULIN REGULAR, HUMAN 100 UNITS/1 ML SUB-Q SCH ×4 (00:44→17:39)
--- NOTE | 2019-05-17 06:29 | Progress Note ---
Assessment and Plan Assessment and plan: Patient is a 63-year-old -[place] man from [facility] with a plethora of co-morbidities including blindness, CVA, CHF, PPM/ICD, loop recorder since 2012 that is MRI compatible, IDDM type 2, sepsis left foot ulcer, afib, ESRD with complications on HD TTS, hypertension, AOCD and GERD who presented to the ED with hypotensive after intubation in the emergency room. Still intubated, diagnosed with fluid overload, pleural effusion. Patient has had recurrent admission in the hospital for similar reason and was recently discharged from the hospital following treatment of Severe Sepsis due to Necrotizing Unstagable sacral decubitus ulcer with ostemomylitis, expected to complete abx on discharg e till 02/16/19. Trach and peg done HR control improved with change in BB. Acute respiratory failure on mechanical ventilator >96 hrs Trach placed on 03/03/19 Pulm consult appreciated weaning trial VAP BUNDLE ASPIRATION BUNDLE Continue T-piece Finished therapy for Acinetobacter Acute pulmonary edema, fluid overload on CXR repeat xray intermittently Dialysis Necrotizing Unstagable sacral decubitus ulcer with ostemomyelitis Wound care, Dilated CMP Cardiomyiopathy EF 35-40% Continue diuresis PPM/ICD Acute encephalopathy, probably metabolic or toxic Continues on Mechanical ventilator. ESRD on hemodialysis nephrology following Vascular eval. done re: LUE AV graft, see note Bilateral pleural effusions Anticipate improvement with Permanent atrial fibrillation and flutter Not on anticoagulation because of anemia thrombocytopenia Change noted to BB agent to IV. Diabetes mellitus type 2 Fingerstick Q4h NSTEMI type 2 Cardiology following Schizophrenia continue home meds Legally blind supportive care hypertension Monitor BP Hypokalemia resolved Pulmonary hypertension by history Dysphagia s/p PEG tube Severe malnutrition/hypoalbuminemia with FTT: 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, special procedures technologist following PEG placed on 01/02/19 Decubitus ulcer s/;p colostomy wound care consult History of sacral osteomyelitis and LE ulcers Completed Antibiotics Place on contact isolation for ESBL Klebsiella pneumonia on wound culture 01/02/19 h/o Peripheral neuropathy: Continue gabapentin Anemia of chronic disease -s/p total of 8 units PRBC, follow cbc- no occult GI bleed noted. -Pt is s/p x1 DDVAP RUL atelectasis, nebs as needed DVT prophylaxis Lovenox DNR poor prognosis Disposition: Awaiting on HD setup History Interval history: Patient was seen and examined. Follow-up on current diagnosis. No overnight events reported to me. Patient is mainly nonverbal. Imaging, nursing note, chart, labs and old chart reviewed. Hospitalist Physical - Physical exam Narrative exam: Gen: severely disable, nad, awake alert x 1 HEENT: NCAT, EOMI, PERRL, OP Clear Neck: supple, trach CVS/Heart: irreg irregular, normal S1S2, pulses present bilaterally Chest/Lungs: diminished bs ymmetrical chest expansion, good air entry bilaterally GI/Abdomen:peg, colostomy present, good bowel sounds, no guarding or rebound /Bladder: no suprapubic tenderness, no CVA or paraspinal tenderness Extermity/Skin: no c/c/e, no obvious rash MSK: no FROM x 4 Neuro: CN 2-12 grossly intact except vision, no new focal deficits Psych: calm - Constitutional Vitals: Temp Pulse Resp BP Pulse Ox 97.6 F 115 H 18 118/56 99 05/17/19 06:00 05/17/19 05:59 05/17/19 05:59 05/17/19 05:59 05/17/19 05:59 General appearance: Present: no acute distress, other (T peace). Absent: well- nourished Results - Labs CBC & Chem 7: 05/12/19 07:15 05/12/19 07:15 Labs: Laboratory Last Values WBC 9.9 K/mm3 (4.5-11.0) 05/12/19 07:15 RBC 3.32 M/mm3 (3.65-5.03) L 05/12/19 07:15 Hgb 8.7 gm/dl (11.8-15.2) L 05/12/19 07:15 Hct 27.8 % (35.5-45.6) L 05/12/19 07:15 MCV 84 fl (84-94) 05/12/19 07:15 MCH 26 pg (28-32) L 05/12/19 07:15 MCHC 31 % (32-34) L 05/12/19 07:15 RDW 19.8 % (13.2-15.2) H 05/12/19 07:15 Plt Count 325 K/mm3 (140-440) 05/12/19 07:15 Lymph % (Auto) 6.9 % (13.4-35.0) L 05/12/19 07:15 [place] % (Auto) 7.3 % (0.0-7.3) 05/12/19 07:15 Eos % (Auto) 6.5 % (0.0-4.3) H 05/12/19 07:15 Baso % (Auto) 0.7 % (0.0-1.8) 05/12/19 07:15 Lymph # 0.7 K/mm3 (1.2-5.4) L 05/12/19 07:15 [place] # 0.7 K/mm3 (0.0-0.8) 05/12/19 07:15 Eos # 0.6 K/mm3 (0.0-0.4) H 05/12/19 07:15 Baso # 0.1 K/mm3 (0.0-0.1) 05/12/19 07:15 Add Manual Diff Complete 03/21/19 06:30 Total Counted 100 03/21/19 06:30 Seg Neutrophils % 78.6 % (40.0-70.0) H 05/12/19 07:15 Seg Neuts % (Manual) 81.0 % (40.0-70.0) H 03/21/19 06:30 Band Neutrophils % 0 % 03/21/19 06:30 Lymphocytes % (Manual) 8.0 % (13.4-35.0) L 03/21/19 06:30 Reactive Lymphs % (Man) 0 % 03/21/19 06:30 Monocytes % (Manual) 1.0 % (0.0-7.3) 03/21/19 06:30 Eosinophils % (Manual) 8.0 % (0.0-4.3) H 03/21/19 06:30 Basophils % (Manual) 1.0 % (0.0-1.8) 03/21/19 06:30 Metamyelocytes % 1.0 % 03/21/19 06:30 Myelocytes % 0 % 03/21/19 06:30 Promyelocytes % 0 % 03/21/19 06:30 Blast Cells % 0 % 03/21/19 06:30 Nucleated RBC % Not Reportable 03/21/19 06:30 Seg Neutrophils # 7.8 K/mm3 (1.8-7.7) H 05/12/19 07:15 Seg Neutrophils # Man 6.7 K/mm3 (1.8-7.7) 03/21/19 06:30 Band Neutrophils # 0.0 K/mm3 03/21/19 06:30 Lymphocytes # (Manual) 0.7 K/mm3 (1.2-5.4) L 03/21/19 06:30 Abs React Lymphs (Man) 0.0 K/mm3 03/21/19 06:30 Monocytes # (Manual) 0.1 K/mm3 (0.0-0.8) 03/21/19 06:30 Eosinophils # (Manual) 0.7 K/mm3 (0.0-0.4) H 03/21/19 06:30 Basophils # (Manual) 0.1 K/mm3 (0.0-0.1) 03/21/19 06:30 Metamyelocytes # 0.1 K/mm3 03/21/19 06:30 Myelocytes # 0.0 K/mm3 03/21/19 06:30 Promyelocytes # 0.0 K/mm3 03/21/19 06:30 Blast Cells # 0.0 K/mm3 03/21/19 06:30 WBC Morphology Not Reportable 03/21/19 06:30 Hypersegmented Neuts Not Reportable 03/21/19 06:30 Hyposegmented Neuts Not Reportable 03/21/19 06:30 Hypogranular Neuts Not Reportable 03/21/19 06:30 Smudge Cells Not Reportable 03/21/19 06:30 Toxic Granulation Not Reportable 03/21/19 06:30 Toxic Vacuolation Not Reportable 03/21/19 06:30 Dohle Bodies Not Reportable 03/21/19 06:30 Pelger-Huet Anomaly Not Reportable 03/21/19 06:30 Tramaine Rods Not Reportable 03/21/19 06:30 Platelet Estimate Consistent w auto 03/21/19 06:30 Clumped Platelets Not Reportable 03/21/19 06:30 Plt Clumps, EDTA Not Reportable 03/21/19 06:30 Large Platelets Not Reportable 03/21/19 06:30 Giant Platelets Not Reportable 03/21/19 06:30 Platelet Satelliting Not Reportable 03/21/19 06:30 Plt Morphology Comment Not Reportable 03/21/19 06:30 RBC Morphology Not Reportable 03/21/19 06:30 Dimorphic RBCs Not Reportable 03/21/19 06:30 Polychromasia Not Reportable 03/21/19 06:30 Hypochromasia Few 03/21/19 06:30 Poikilocytosis Few 03/21/19 06:30 Anisocytosis Few 03/21/19 06:30 Microcytosis Not Reportable 03/21/19 06:30 Macrocytosis Not Reportable 03/21/19 06:30 Spherocytes Not Reportable 03/21/19 06:30 Pappenheimer Bodies Not Reportable 03/21/19 06:30 Sickle Cells Not Reportable 03/21/19 06:30 Target Cells 1+ 03/21/19 06:30 Tear Drop Cells Not Reportable 03/21/19 06:30 Ovalocytes Few 03/21/19 06:30 Helmet Cells Not Reportable 03/21/19 06:30 [place] Bodies Not Reportable 03/21/19 06:30 [place] Rings Not Reportable 03/21/19 06:30 Hebert Cells Not Reportable 03/21/19 06:30 Bite Cells Not Reportable 03/21/19 06:30 Crenated Cell Not Reportable 03/21/19 06:30 Elliptocytes Not Reportable 03/21/19 06:30 Acanthocytes (Spur) Not Reportable 03/21/19 06:30 Rouleaux Not Reportable 03/21/19 06:30 Hemoglobin C Crystals Not Reportable 03/21/19 06:30 Schistocytes Not Reportable 03/21/19 06:30 Malaria parasites Not Reportable 03/21/19 06:30 Jose Juan Bodies Not Reportable 03/21/19 06:30 Hem Pathologist Commnt No 03/21/19 06:30 PT 16.3 Sec. (12.2-14.9) H 03/01/19 09:39 INR 1.35 (0.87-1.13) H 03/01/19 09:39 APTT 33.7 Sec. (24.2-36.6) 02/21/19 18:30 D-Dimer 2987.82 ng/mlDDU (0-234) H 02/22/19 05:54 POC ABG pH 7.510 (7.35-7.45) H 03/18/19 06:38 ABG pH 7.424 pH Units (7.350-7.450) 03/19/19 04:23 POC ABG pCO2 38.9 (35-45) 03/18/19 06:38 ABG pCO2 48.0 mm Hg 03/19/19 04:23 POC ABG pO2 164 (80-105) H 03/18/19 06:38 ABG pO2 78.3 mm Hg (80.0-90.0) L 03/19/19 04:23 POC ABG HCO3 31.0 (22-26 mml/L) 03/18/19 06:38 ABG HCO3 30.7 mmol/L (20.0-26.0) H 03/19/19 04:23 POC ABG Total CO2 32 (23-27mmol/L) 03/18/19 06:38 POC ABG O2 Sat 100 03/18/19 06:38 ABG O2 Saturation 97.0 % (95.0-99.0) 03/19/19 04:23 ABG O2 Content 7.9 (0.0-44) 03/19/19 04:23 POC ABG Base Excess 8 ((-2) - (+3)mmol/L) 03/18/19 06:38 ABG Base Excess 5.8 mmol/L (-2.0-3.0) H 03/19/19 04:23 ABG Hemoglobin 5.8 gm/dl (14.0-18.0) L 03/19/19 04:23 ABG Carboxyhemoglobin 2.0 % (0.0-5.0) 03/19/19 04:23 ABG Methemoglobin 0.4 % (0.0-1.5) 03/19/19 04:23 Oxyhemoglobin 94.6 % (95.0-99.0) L 03/19/19 04:23 FiO2 35 % 03/19/19 04:23 Sodium 135 mmol/L (137-145) L 05/12/19 07:15 Potassium 3.7 mmol/L (3.6-5.0) 05/12/19 07:15 Chloride 94.2 mmol/L (98-107) L 05/12/19 07:15 Carbon Dioxide 26 mmol/L (22-30) 05/12/19 07:15 Anion Gap 19 mmol/L 05/12/19 07:15 BUN 59 mg/dL (9-20) H 05/12/19 07:15 Creatinine 3.4 mg/dL (0.8-1.5) H 05/12/19 07:15 Estimated GFR 22 ml/min 05/12/19 07:15 BUN/Creatinine Ratio 17 % 05/12/19 07:15 Glucose 134 mg/dL (75-100) H 05/12/19 07:15 POC Glucose 177 (70-105) H 05/17/19 06:26 Lactic Acid 1.00 mmol/L (0.7-2.0) 02/21/19 20:58 Calcium 9.5 mg/dL (8.4-10.2) 05/12/19 07:15 Phosphorus 4.30 mg/dL (2.5-4.5) D 03/31/19 10:26 Magnesium 2.70 mg/dL (1.7-2.3) H 03/30/19 10:13 Total Bilirubin 0.20 mg/dL (0.1-1.2) 03/30/19 10:13 AST 16 units/L (5-40) 03/30/19 10:13 ALT 11 units/L (7-56) 03/30/19 10:13 Alkaline Phosphatase 185 units/L (35-129) H 03/30/19 10:13 Ammonia 28.0 umol/L (25-60) 02/21/19 20:04 Total Creatine Kinase 64 units/L (55-170) 02/22/19 03:42 CK-MB (CK-2) 3.7 ng/mL (0.0-4.0) 02/22/19 03:42 CK-MB (CK-2) Rel Index 5.7 (0-4) H 02/22/19 03:42 Troponin T 0.193 ng/mL (0.00-0.029) H* 02/22/19 03:42 Total Protein 6.9 g/dL (6.3-8.2) 03/30/19 10:13 Albumin 2.6 g/dL (3.9-5) L 03/30/19 10:13 Albumin/Globulin Ratio 0.6 % 03/30/19 10:13 Triglycerides 51 mg/dL (2-149) 02/21/19 18:30 Cholesterol 82 mg/dL (50-199) 02/21/19 18:30 LDL Cholesterol Direct 36 mg/dL (50-130) L 02/21/19 18:30 HDL Cholesterol 40 mg/dL (40-59) 02/21/19 18:30 Cholesterol/HDL Ratio 2.05 % 02/21/19 18:30 TSH 2.760 mlU/mL (0.270-4.200) 02/21/19 20:04 PTH Intact 267.6 pg/mL (15-65) H 03/02/19 05:15 Salicylates < 0.3 mg/dL (2.8-20.0) L 02/21/19 20:04 Acetaminophen < 5.0 ug/mL (10.0-30.0) L 02/21/19 20:04 Hepatitis A IgM Ab Non-reactive (NonReactive) 04/30/19 14:11 Hep Bs Antigen Non-reactive (Negative) 04/30/19 14:11 Hep B Core IgM Ab Non-reactive (NonReactive) 04/30/19 14:11 Hepatitis C Antibody Non-reactive (NonReactive) 04/30/19 14:11 Blood Type O POSITIVE 05/04/19 12:55 Antibody Screen Negative 05/04/19 12:55 Crossmatch See Detail 05/04/19 12:55 Active Medications - Current Medications Current Medications: Generic Name Dose Route Start Last Admin Trade Name Freq PRN Reason Stop Dose Admin Albuterol/Ipratropium 1 ampul 02/24/19 20:00 05/16/19 19:30 Duoneb *Not For Prn Use* IH 1 ampul TIDRT SANCHEZ Administration Lipase/Protease/Amylase 1 each 04/10/19 15:16 Pancreaze 10,500 Unit FEEDTUBE PRN PRN For Clogged Feeding Tube Epoetin Solitario 20,000 unit 03/24/19 11:17 05/15/19 12:01 Procrit IV 20,000 unit UMA PRN Administration hemodialysis Famotidine 20 mg 02/23/19 10:00 05/16/19 10:23 Pepcid PO 20 mg DAILY SANCHEZ Administration Sodium Chloride 100 mls @ 999 mls/hr 05/13/19 12:45 Nacl 0.9% IV UMA PRN Hypotension Insulin Human Regular 0 units 02/26/19 12:00 05/17/19 00:44 Humulin R SUB-Q 1 units Q6HR SANCHEZ Administration Protocol Metoprolol Tartrate 2.5 mg 02/28/19 12:06 03/15/19 05:15 Lopressor IV 2.5 mg Q4HR PRN Administration Tachycardia Risperidone 1 mg 02/25/19 13:00 05/16/19 10:24 Risperdal PO 1 mg DAILY SANCHEZ Administration Sertraline HCl 100 mg 02/25/19 13:00 05/16/19 10:23 Zoloft PO 100 mg DAILY SANCHEZ Administration Simple Syrup 15 ml 04/10/19 15:16 Simple Syrup FEEDTUBE PRN PRN Hypoglycemia Simple Syrup 30 ml 04/10/19 15:16 Simple Syrup FEEDTUBE PRN PRN Hypoglycemia Sodium Bicarbonate 325 mg 04/10/19 15:16 Sodium Bicarbonate FEEDTUBE PRN PRN For Clogged Feeding Tube Sodium Hypochlorite 1 applic 04/01/19 13:00 05/16/19 22:16 Dakin's Half Strength TP 0.25 applicatio BID SANCHEZ Administration Nutrition/Malnutrition Assess - Dietary Evaluation Nutrition/Malnutrition Findings: Nutrition Notes Start: 02/22/19 12:51 Freq: Status: Active Protocol: Document 05/15/19 16:23 RM (Rec: 05/15/19 16:30 RM [id number]) Nutrition Notes Initial or Follow up Reassessment Current Diagnosis Diabetes,Hypertension,Heart Failure Other Pertinent Diagnosis Sacral PU, ESRD on HD (T/Thurs /Sat), Schizophrenia,Blind in L eye,S/P trach Current Diet Nepro at 50 ml/hr w/Abhilash BID Labs/Tests POC 183, 169,119 Pertinent Medications Reviewed Height 5 ft 10 in Weight 75.5 kg Register Body Weight (kg) 75.45 BMI 23.8 Subjective/Other Information Observed Nepro infusing at goal rate. Per nurse pt is tolerating TF. Nurse also stated that she was unaware of Abhilash order and has not given it to pt today. Grinding Wheel Dresser explained the purpose of Abhilash and that administration instructions are in the diet order. Nurse stated that she will administer Abhilash to pt. Percent of energy/protein needs met: 100%/100% Burn Absent Trauma Absent Minimum of two criteria No #2 Nutrition Diagnosis Increased nutrient needs ( specify in comment below) Diagnosis Progress(for reassessment Continues documentation) #1 Nutrition Diagnosis Inadequate oral intake Diagnosis Progress(for reassessment Continues documentation) Is patient on ventilator? No Is Patient Ambulatory and/or Out of Bed No REE-([facility]-confined to bed) 1866.744 Kcal/Kg value to use for calculation 31 Approximate Energy Requirements Using 2341 kcal/Kg Calculation Used for Recommendations [facility] Additional Notes Protein Needs:90 - 112 g (1.2- 1.5 g/kg) Fluid Needs: 1-1.5 L/day Nutrition Intervention Change Diet Order: Continue TF Nutrition Support: Nepro with Carbsteady 1.8 at 50 ml/hr Flush 200 ml q4hr Kcal 2,160 Protein (gm) 97 Fluid (mL) 872 Add Supplement/Snack (indicate name/kcal Abhilash BID /protein ) Provides kCal: 190 Provides Protein (gm) 5 Goal #1 TF tolerance Goal #2 Continue to meet at least 75% of calorie and protein needs via TF Anticipated Discharge Needs: TF Follow-Up By: 05/19/19 Additional Comments Follow for TF tolerance, receiving Abhilash
[2019-05-17] MEDS: IPRATROPIUM/ALBUTEROL SULFATE 3 ML AMPUL.NEB IH SCH ×3 (08:18→20:38)
[2019-05-17] MEDS: SERTRALINE 100 MG TAB PO SCH (10:01)
[2019-05-17] MEDS: FAMOTIDINE 20 MG TAB PO SCH (10:01)
[2019-05-17] MEDS: risperiDONE 1 MG TAB PO SCH (10:01)
[2019-05-17] MEDS: SODIUM HYPOCHLORITE, DAKIN'S 1/2 STRENGTH (0.25%) 473 ML TOPICAL SOLN TP SCH ×2 (10:02→21:27)
--- NOTE | 2019-05-17 13:23 | Progress Note ---
Assessment and Plan Assessment: * End stage renal disease (outpatient TTS schedule) * Acute hypoxic respiratory failure s/p trach * KEON pneumonia --Sputum cx: MDR Acinetobacter * Cardiomyopathy - EF 35-40% * Atrial fibrillation * History of CVA * Anemia secondary to ESRD * Secondary hyperparathyroidism Plan * Continue HD MWF via LUE AVG, due on 05/18/18 * UF as tolerated * Nutrition per primary team * Dose medications for renal function * continue Epogen 20k TIW * Weekly labs We will continue to follow patient for renal related issues. Subjective Date of service: 05/17/19 Principal diagnosis: Respiratory failure, acute on chronic systolic HF, ESRD Interval history: no acute issues noted overnight. tolerating HD sessions per HD nurses. patient remains at baseline poor mental status Objective - Exam Narrative Exam: General appearance: chronically ill, intubated, frail EENT: normocephalic Neck: trach collar in place Respiratory: coarse mechanical breath sounds bilaterally Cardiology: regular, S1S2, no edema Gastrointestinal: PEG and colostomy noted Integumentary: warm and dry Psychiatric: unable to assess - Vital Signs Vital signs: Vital Signs - 12hr 05/17/19 05/17/19 05/17/19 05:50 05:59 06:00 Temperature 97.6 F Pulse Rate 115 H Pulse Rate [ Anterior Bilateral Throughout] Respiratory 18 18 Rate Respiratory Rate [Anterior Bilateral Throughout] Blood Pressure 118/56 O2 Sat by Pulse 98 99 Oximetry 05/17/19 05/17/19 08:00 10:00 Temperature Pulse Rate 115 H Pulse Rate [ 78 Anterior Bilateral Throughout] Respiratory 18 Rate Respiratory 18 Rate [Anterior Bilateral Throughout] Blood Pressure O2 Sat by Pulse 98 Oximetry - Lab 05/12/19 07:15 05/12/19 07:15 Most recent lab results ABG pH 7.424 pH Units (7.350-7.450) 03/19/19 04:23 ABG pCO2 48.0 mm Hg 03/19/19 04:23 ABG pO2 78.3 mm Hg (80.0-90.0) L 03/19/19 04:23 ABG HCO3 30.7 mmol/L (20.0-26.0) H 03/19/19 04:23 ABG O2 Saturation 97.0 % (95.0-99.0) 03/19/19 04:23 Calcium 9.5 mg/dL (8.4-10.2) 05/12/19 07:15 Phosphorus 4.30 mg/dL (2.5-4.5) D 03/31/19 10:26 Magnesium 2.70 mg/dL (1.7-2.3) H 03/30/19 10:13 Medications & Allergies - Medications Allergies/Adverse Reactions: Allergies haloperidol [From Haldol] Adverse Reaction (Verified 03/13/18 12:10) Unknown haloperidol lactate [From Haldol] Adverse Reaction (Verified 03/13/18 12:10) Unknown Home Medications: Home Medications Medication Instructions Recorded Confirmed Last Taken Type risperiDONE [RisperDAL] 1 mg PO QAM 03/13/18 02/21/19 Unknown History Sertraline [Zoloft] 100 mg PO QDAY 08/26/18 02/21/19 Unknown History Polyethylene Glycol 3350 [Miralax 17 gm PO QDAY #30 packet 11/05/18 02/21/19 Unknown Rx 3350] Aspirin EC [Halfprin EC] 81 mg PO DAILY #30 11/19/18 02/21/19 Unknown Rx Docusate Sodium [Colace CAP] 100 mg PO BID #60 11/19/18 02/21/19 Unknown Rx Folic Acid [Folvite] 1 mg PO DAILY #30 tab 11/19/18 02/21/19 Unknown Rx Famotidine [Pepcid] 20 mg PO DAILY tablet 12/08/18 02/21/19 Unknown Rx Gabapentin 100 mg PO QHS capsule 12/08/18 02/21/19 Unknown Rx Metoprolol [Lopressor TAB] 50 mg PO BID 30 Days tablet 12/08/18 02/21/19 Unknown Rx Sevelamer Carbonate [Renvela] 800 mg PO TIDWM tablet 12/08/18 02/21/19 Unknown Rx hydrALAZINE [Apresoline TAB] 100 mg PO Q8HR #120 tablet 12/08/18 02/21/19 Unknown Rx Acetaminophen [Acetaminophen TAB] 650 mg PO Q12H PRN 12/15/18 02/21/19 Unknown History Glucagon,Human Recombinant 1 mg IJ Q15MIN PRN 12/15/18 02/21/19 Unknown History [Glucagon Emergency Kit] Insulin Aspart [NovoLOG 100 See Protocol SQ QWEEK 12/15/18 02/21/19 Unknown History UNITS/ML VIAL] Active Medications: Generic Name Dose Route Start Last Admin Trade Name Freq PRN Reason Stop Dose Admin Albuterol/Ipratropium 1 ampul 02/24/19 20:00 05/17/19 08:18 Duoneb *Not For Prn Use* IH 1 ampul TIDRT SANCHEZ Administration Lipase/Protease/Amylase 1 each 04/10/19 15:16 Pancrejewel Barrientos 10,500 Unit FEEDTUBE PRN PRN For Clogged Feeding Tube Epoetin Solitario 20,000 unit 03/24/19 11:17 05/15/19 12:01 Procrit IV 20,000 unit UMA PRN Administration hemodialysis Famotidine 20 mg 02/23/19 10:00 05/17/19 10:01 Pepcid PO 20 mg DAILY SANCHEZ Administration Sodium Chloride 100 mls @ 999 mls/hr 05/13/19 12:45 Nacl 0.9% IV UMA PRN Hypotension Insulin Human Regular 0 units 02/26/19 12:00 05/17/19 06:48 Humulin R SUB-Q 1 units Q6HR SANCHEZ Administration Protocol Metoprolol Tartrate 2.5 mg 02/28/19 12:06 03/15/19 05:15 Lopressor IV 2.5 mg Q4HR PRN Administration Tachycardia Risperidone 1 mg 02/25/19 13:00 05/17/19 10:01 Risperdal PO 1 mg DAILY SANCHEZ Administration Sertraline HCl 100 mg 02/25/19 13:00 05/17/19 10:01 Zoloft PO 100 mg DAILY SANCHEZ Administration Simple Syrup 15 ml 04/10/19 15:16 Simple Syrup FEEDTUBE PRN PRN Hypoglycemia Simple Syrup 30 ml 04/10/19 15:16 Simple Syrup FEEDTUBE PRN PRN Hypoglycemia Sodium Bicarbonate 325 mg 04/10/19 15:16 Sodium Bicarbonate FEEDTUBE PRN PRN For Clogged Feeding Tube Sodium Hypochlorite 1 applic 04/01/19 13:00 05/17/19 10:02 Dakin's Half Strength TP 1 applicatio BID SANCHEZ Administration
--- NOTE | 2019-05-17 13:29 | Progress Note ---
Assessment and Plan 63 y/o male with multiple medical issues admitted with altered mental status, acute respiratory failure requiring mechanical ventilation 1. Continue capping trials. Nasal cannula therapy. 2. HD per renal 3. PT/OT if possible 4. CM working on placement 5. No objection to discharge once placement is found Subjective Date of service: 05/17/19 Principal diagnosis: Respiratory failure, acute on chronic systolic HF, ESRD Interval history: No acute events. Objective Vital Signs - 12hr 05/17/19 05/17/19 05/17/19 05:50 05:59 06:00 Temperature 97.6 F Pulse Rate 115 H Pulse Rate [ Anterior Bilateral Throughout] Respiratory 18 18 Rate Respiratory Rate [Anterior Bilateral Throughout] Blood Pressure 118/56 O2 Sat by Pulse 98 99 Oximetry 05/17/19 05/17/19 08:00 10:00 Temperature Pulse Rate 115 H Pulse Rate [ 78 Anterior Bilateral Throughout] Respiratory 18 Rate Respiratory 18 Rate [Anterior Bilateral Throughout] Blood Pressure O2 Sat by Pulse 98 Oximetry Constitutional: no acute distress, alert Eyes: non-icteric ENT: oropharynx moist Neck: supple Effort: normal Ascultation: Bilateral: diminished breath sounds, other (coarse BS bilaterally) Percussion: Bilateral: not dull Cardiovascular: regular rate and rhythm (no mrg) Gastrointestinal: normoactive bowel sounds, soft, non-tender, non-distended, other (ostomy in place, brown stool) Extremities: no cyanosis, no edema, pink and warm Neurologic: other (mild weakness LUE, o/w nonfocal) Psychiatric: other (unable to assess) CBC and BMP: 05/12/19 07:15 05/12/19 07:15 ABG, PT/INR, D-dimer: ABG POC ABG pH 7.510 (7.35-7.45) H 03/18/19 06:38 ABG pH 7.424 pH Units (7.350-7.450) 03/19/19 04:23 POC ABG pCO2 38.9 (35-45) 03/18/19 06:38 ABG pCO2 48.0 mm Hg 03/19/19 04:23 POC ABG pO2 164 (80-105) H 03/18/19 06:38 ABG pO2 78.3 mm Hg (80.0-90.0) L 03/19/19 04:23 POC ABG HCO3 31.0 (22-26 mml/L) 03/18/19 06:38 POC ABG Total CO2 32 (23-27mmol/L) 03/18/19 06:38 POC ABG O2 Sat 100 03/18/19 06:38 ABG O2 Saturation 97.0 % (95.0-99.0) 03/19/19 04:23 PT/INR, D-dimer PT 16.3 Sec. (12.2-14.9) H 03/01/19 09:39 INR 1.35 (0.87-1.13) H 03/01/19 09:39 D-Dimer 2987.82 ng/mlDDU (0-234) H 02/22/19 05:54 Abnormal lab findings: Abnormal Labs 02/21/19 02/21/19 02/21/19 18:30 18:30 18:30 WBC RBC 3.26 L Hgb 8.8 L Hct 29.0 L MCV MCH 27 L MCHC 30 L RDW 19.1 H Plt Count Lymph % (Auto) 6.1 L [place] % (Auto) Eos % (Auto) Baso % (Auto) Lymph # 0.4 L [place] # Eos # Baso # Seg Neutrophils % 86.2 H Seg Neuts % (Manual) Lymphocytes % (Manual) Eosinophils % (Manual) Seg Neutrophils # Lymphocytes # (Manual) Eosinophils # (Manual) PT INR D-Dimer POC ABG pH POC ABG pCO2 POC ABG pO2 ABG pO2 ABG HCO3 ABG Base Excess ABG Hemoglobin Oxyhemoglobin Sodium 133 L Potassium 3.3 L Chloride 93.1 L Carbon Dioxide 33 H BUN Creatinine Glucose 161 H POC Glucose Calcium Phosphorus Magnesium ALT Alkaline Phosphatase 136 H Total Creatine Kinase 37 L CK-MB (CK-2) Rel Index Troponin T 0.192 H* Albumin 2.4 L LDL Cholesterol Direct 36 L PTH Intact Salicylates Acetaminophen Crossmatch 02/21/19 02/21/19 02/21/19 18:42 20:04 20:04 WBC RBC Hgb Hct MCV MCH MCHC RDW Plt Count Lymph % (Auto) [place] % (Auto) Eos % (Auto) Baso % (Auto) Lymph # [place] # Eos # Baso # Seg Neutrophils % Seg Neuts % (Manual) Lymphocytes % (Manual) Eosinophils % (Manual) Seg Neutrophils # Lymphocytes # (Manual) Eosinophils # (Manual) PT INR D-Dimer POC ABG pH POC ABG pCO2 56.7 H POC ABG pO2 291 H ABG pO2 ABG HCO3 ABG Base Excess ABG Hemoglobin Oxyhemoglobin Sodium Potassium Chloride Carbon Dioxide BUN Creatinine Glucose POC Glucose Calcium Phosphorus Magnesium ALT Alkaline Phosphatase Total Creatine Kinase CK-MB (CK-2) Rel Index Troponin T Albumin LDL Cholesterol Direct PTH Intact Salicylates < 0.3 L Acetaminophen < 5.0 L Crossmatch 02/21/19 02/22/19 02/22/19 22:35 03:42 03:42 WBC RBC 3.20 L Hgb 8.8 L Hct 27.6 L MCV MCH MCHC RDW 18.9 H Plt Count Lymph % (Auto) 7.4 L [place] % (Auto) Eos % (Auto) Baso % (Auto) Lymph # 0.7 L [place] # Eos # Baso # Seg Neutrophils % 84.7 H Seg Neuts % (Manual) Lymphocytes % (Manual) Eosinophils % (Manual) Seg Neutrophils # Lymphocytes # (Manual) Eosinophils # (Manual) PT INR D-Dimer POC ABG pH POC ABG pCO2 POC ABG pO2 ABG pO2 ABG HCO3 ABG Base Excess ABG Hemoglobin Oxyhemoglobin Sodium 134 L Potassium 2.6 L* D Chloride Carbon Dioxide BUN Creatinine Glucose POC Glucose Calcium Phosphorus Magnesium ALT Alkaline Phosphatase Total Creatine Kinase CK-MB (CK-2) Rel Index 5.2 H Troponin T 0.202 H* Albumin LDL Cholesterol Direct PTH Intact Salicylates Acetaminophen Crossmatch 02/22/19 02/22/19 02/22/19 03:42 05:54 09:04 WBC RBC Hgb Hct MCV MCH MCHC RDW Plt Count Lymph % (Auto) [place] % (Auto) Eos % (Auto) Baso % (Auto) Lymph # [place] # Eos # Baso # Seg Neutrophils % Seg Neuts % (Manual) Lymphocytes % (Manual) Eosinophils % (Manual) Seg Neutrophils # Lymphocytes # (Manual) Eosinophils # (Manual) PT INR D-Dimer 2987.82 H POC ABG pH 7.451 H POC ABG pCO2 POC ABG pO2 ABG pO2 ABG HCO3 ABG Base Excess ABG Hemoglobin Oxyhemoglobin Sodium Potassium Chloride Carbon Dioxide BUN Creatinine Glucose POC Glucose Calcium Phosphorus Magnesium ALT Alkaline Phosphatase Total Creatine Kinase CK-MB (CK-2) Rel Index 5.7 H Troponin T 0.193 H* Albumin LDL Cholesterol Direct PTH Intact Salicylates Acetaminophen Crossmatch 02/22/19 02/22/19 02/23/19 10:36 23:56 00:52 WBC RBC Hgb Hct MCV MCH MCHC RDW Plt Count Lymph % (Auto) [place] % (Auto) Eos % (Auto) Baso % (Auto) Lymph # [place] # Eos # Baso # Seg Neutrophils % Seg Neuts % (Manual) Lymphocytes % (Manual) Eosinophils % (Manual) Seg Neutrophils # Lymphocytes # (Manual) Eosinophils # (Manual) PT INR D-Dimer POC ABG pH POC ABG pCO2 POC ABG pO2 ABG pO2 ABG HCO3 ABG Base Excess ABG Hemoglobin Oxyhemoglobin Sodium Potassium 3.1 L Chloride Carbon Dioxide BUN Creatinine Glucose POC Glucose 58 L 111 H Calcium Phosphorus Magnesium ALT Alkaline Phosphatase Total Creatine Kinase CK-MB (CK-2) Rel Index Troponin T Albumin LDL Cholesterol Direct PTH Intact Salicylates Acetaminophen Crossmatch 02/23/19 02/23/19 02/23/19 05:00 06:35 14:26 WBC RBC Hgb Hct MCV MCH MCHC RDW Plt Count Lymph % (Auto) [place] % (Auto) Eos % (Auto) Baso % (Auto) Lymph # [place] # Eos # Baso # Seg Neutrophils % Seg Neuts % (Manual) Lymphocytes % (Manual) Eosinophils % (Manual) Seg Neutrophils # Lymphocytes # (Manual) Eosinophils # (Manual) PT INR D-Dimer POC ABG pH POC ABG pCO2 POC ABG pO2 ABG pO2 ABG HCO3 ABG Base Excess ABG Hemoglobin Oxyhemoglobin Sodium 135 L Potassium 3.1 L Chloride Carbon Dioxide BUN 21 H Creatinine 2.0 H Glucose 57 L POC Glucose 64 L 62 L Calcium Phosphorus Magnesium ALT Alkaline Phosphatase Total Creatine Kinase CK-MB (CK-2) Rel Index Troponin T Albumin LDL Cholesterol Direct PTH Intact Salicylates Acetaminophen Crossmatch 02/24/19 02/24/19 02/24/19 02:11 04:12 04:55 WBC RBC 2.84 L Hgb 7.8 L Hct 24.5 L MCV MCH MCHC RDW 19.5 H Plt Count Lymph % (Auto) [place] % (Auto) Eos % (Auto) Baso % (Auto) Lymph # [place] # Eos # Baso # Seg Neutrophils % Seg Neuts % (Manual) Lymphocytes % (Manual) Eosinophils % (Manual) Seg Neutrophils # Lymphocytes # (Manual) Eosinophils # (Manual) PT INR D-Dimer POC ABG pH 7.511 H POC ABG pCO2 33.9 L POC ABG pO2 62 L ABG pO2 ABG HCO3 ABG Base Excess ABG Hemoglobin Oxyhemoglobin Sodium Potassium Chloride Carbon Dioxide BUN Creatinine Glucose POC Glucose 69 L Calcium Phosphorus Magnesium ALT Alkaline Phosphatase Total Creatine Kinase CK-MB (CK-2) Rel Index Troponin T Albumin LDL Cholesterol Direct PTH Intact Salicylates Acetaminophen Crossmatch 02/24/19 02/24/19 02/25/19 04:55 05:41 04:45 WBC RBC Hgb Hct MCV MCH MCHC RDW Plt Count Lymph % (Auto) [place] % (Auto) Eos % (Auto) Baso % (Auto) Lymph # [place] # Eos # Baso # Seg Neutrophils % Seg Neuts % (Manual) Lymphocytes % (Manual) Eosinophils % (Manual) Seg Neutrophils # Lymphocytes # (Manual) Eosinophils # (Manual) PT INR D-Dimer POC ABG pH 7.466 H POC ABG pCO2 POC ABG pO2 75 L ABG pO2 ABG HCO3 ABG Base Excess ABG Hemoglobin Oxyhemoglobin Sodium Potassium Chloride Carbon Dioxide BUN Creatinine 1.8 H Glucose 73 L POC Glucose 127 H Calcium Phosphorus Magnesium ALT Alkaline Phosphatase Total Creatine Kinase CK-MB (CK-2) Rel Index Troponin T Albumin LDL Cholesterol Direct PTH Intact Salicylates Acetaminophen Crossmatch 02/25/19 02/25/19 02/26/19 16:34 21:33 03:45 WBC RBC 2.96 L Hgb 8.0 L Hct 25.8 L MCV MCH 27 L MCHC 31 L RDW 20.0 H Plt Count Lymph % (Auto) [place] % (Auto) Eos % (Auto) Baso % (Auto) Lymph # [place] # Eos # Baso # Seg Neutrophils % Seg Neuts % (Manual) Lymphocytes % (Manual) Eosinophils % (Manual) Seg Neutrophils # Lymphocytes # (Manual) Eosinophils # (Manual) PT INR D-Dimer POC ABG pH POC ABG pCO2 POC ABG pO2 ABG pO2 ABG HCO3 ABG Base Excess ABG Hemoglobin Oxyhemoglobin Sodium Potassium Chloride Carbon Dioxide BUN Creatinine Glucose POC Glucose 141 H 106 H Calcium Phosphorus Magnesium ALT Alkaline Phosphatase Total Creatine Kinase CK-MB (CK-2) Rel Index Troponin T Albumin LDL Cholesterol Direct PTH Intact Salicylates Acetaminophen Crossmatch 02/26/19 02/26/1902/26/19 03:45 04:13 07:53 WBC RBC Hgb Hct MCV MCH MCHC RDW Plt Count Lymph % (Auto) [place] % (Auto) Eos % (Auto) Baso % (Auto) Lymph # [place] # Eos # Baso # Seg Neutrophils % Seg Neuts % (Manual) Lymphocytes % (Manual) Eosinophils % (Manual) Seg Neutrophils # Lymphocytes # (Manual) Eosinophils # (Manual) PT INR D-Dimer POC ABG pH 7.470 H POC ABG pCO2 POC ABG pO2 ABG pO2 ABG HCO3 ABG Base Excess ABG Hemoglobin Oxyhemoglobin Sodium Potassium Chloride Carbon Dioxide BUN Creatinine 1.8 H Glucose POC Glucose 110 H Calcium Phosphorus Magnesium ALT Alkaline Phosphatase Total Creatine Kinase CK-MB (CK-2) Rel Index Troponin T Albumin LDL Cholesterol Direct PTH Intact Salicylates Acetaminophen Crossmatch 02/26/19 02/26/19 02/27/19 11:56 17:43 00:12 WBC RBC Hgb Hct MCV MCH MCHC RDW Plt Count Lymph % (Auto) [place] % (Auto) Eos % (Auto) Baso % (Auto) Lymph # [place] # Eos # Baso # Seg Neutrophils % Seg Neuts % (Manual) Lymphocytes % (Manual) Eosinophils % (Manual) Seg Neutrophils # Lymphocytes # (Manual) Eosinophils # (Manual) PT INR D-Dimer POC ABG pH POC ABG pCO2 POC ABG pO2 ABG pO2 ABG HCO3 ABG Base Excess ABG Hemoglobin Oxyhemoglobin Sodium Potassium Chloride Carbon Dioxide BUN Creatinine Glucose POC Glucose 112 H 127 H 127 H Calcium Phosphorus Magnesium ALT Alkaline Phosphatase Total Creatine Kinase CK-MB (CK-2) Rel Index Troponin T Albumin LDL Cholesterol Direct PTH Intact Salicylates Acetaminophen Crossmatch 02/27/19 02/27/19 02/27/19 04:35 13:15 18:02 WBC RBC Hgb Hct MCV MCH MCHC RDW Plt Count Lymph % (Auto) [place] % (Auto) Eos % (Auto) Baso % (Auto) Lymph # [place] # Eos # Baso # Seg Neutrophils % Seg Neuts % (Manual) Lymphocytes % (Manual) Eosinophils % (Manual) Seg Neutrophils # Lymphocytes # (Manual) Eosinophils # (Manual) PT INR D-Dimer POC ABG pH 7.483 H POC ABG pCO2 POC ABG pO2 61 L ABG pO2 ABG HCO3 ABG Base Excess ABG Hemoglobin Oxyhemoglobin Sodium Potassium Chloride Carbon Dioxide BUN Creatinine Glucose POC Glucose 143 H 106 H Calcium Phosphorus Magnesium ALT Alkaline Phosphatase Total Creatine Kinase CK-MB (CK-2) Rel Index Troponin T Albumin LDL Cholesterol Direct PTH Intact Salicylates Acetaminophen Crossmatch 02/28/19 02/28/19 02/28/19 05:50 11:59 17:52 WBC RBC Hgb Hct MCV MCH MCHC RDW Plt Count Lymph % (Auto) [place] % (Auto) Eos % (Auto) Baso % (Auto) Lymph # [place] # Eos # Baso # Seg Neutrophils % Seg Neuts % (Manual) Lymphocytes % (Manual) Eosinophils % (Manual) Seg Neutrophils # Lymphocytes # (Manual) Eosinophils # (Manual) PT INR D-Dimer POC ABG pH POC ABG pCO2 POC ABG pO2 ABG pO2 ABG HCO3 ABG Base Excess ABG Hemoglobin Oxyhemoglobin Sodium Potassium Chloride Carbon Dioxide BUN Creatinine Glucose POC Glucose 134 H 128 H 142 H Calcium Phosphorus Magnesium ALT Alkaline Phosphatase Total Creatine Kinase CK-MB (CK-2) Rel Index Troponin T Albumin LDL Cholesterol Direct PTH Intact Salicylates Acetaminophen Crossmatch 02/28/19 03/01/19 03/01/19 23:13 05:40 09:39 WBC RBC Hgb Hct MCV MCH MCHC RDW Plt Count Lymph % (Auto) [place] % (Auto) Eos % (Auto) Baso % (Auto) Lymph # [place] # Eos # Baso # Seg Neutrophils % Seg Neuts % (Manual) Lymphocytes % (Manual) Eosinophils % (Manual) Seg Neutrophils # Lymphocytes # (Manual) Eosinophils # (Manual) PT 16.3 H INR 1.35 H D-Dimer POC ABG pH POC ABG pCO2 POC ABG pO2 ABG pO2 ABG HCO3 ABG Base Excess ABG Hemoglobin Oxyhemoglobin Sodium Potassium Chloride Carbon Dioxide BUN Creatinine Glucose POC Glucose 112 H 111 H Calcium Phosphorus Magnesium ALT Alkaline Phosphatase Total Creatine Kinase CK-MB (CK-2) Rel Index Troponin T Albumin LDL Cholesterol Direct PTH Intact Salicylates Acetaminophen Crossmatch 03/01/19 03/01/19 03/01/19 11:56 13:54 17:59 WBC RBC Hgb Hct MCV MCH MCHC RDW Plt Count Lymph % (Auto) [place] % (Auto) Eos % (Auto) Baso % (Auto) Lymph # [place] # Eos # Baso # Seg Neutrophils % Seg Neuts % (Manual) Lymphocytes % (Manual) Eosinophils % (Manual) Seg Neutrophils # Lymphocytes # (Manual) Eosinophils # (Manual) PT INR D-Dimer POC ABG pH POC ABG pCO2 POC ABG pO2 ABG pO2 ABG HCO3 ABG Base Excess ABG Hemoglobin Oxyhemoglobin Sodium Potassium Chloride Carbon Dioxide BUN 33 H Creatinine 2.8 H D Glucose 176 H POC Glucose 199 H 147 H Calcium Phosphorus Magnesium ALT Alkaline Phosphatase Total Creatine Kinase CK-MB (CK-2) Rel Index Troponin T Albumin LDL Cholesterol Direct PTH Intact Salicylates Acetaminophen Crossmatch 03/02/19 03/02/19 03/02/19 05:15 05:15 05:15 WBC RBC 2.73 L Hgb 7.4 L Hct 23.0 L MCV MCH 27 L MCHC RDW 19.9 H Plt Count Lymph % (Auto) [place] % (Auto) 7.9 H Eos % (Auto) 7.6 H Baso % (Auto) Lymph # 1.0 L [place] # Eos # 0.5 H Baso # Seg Neutrophils % Seg Neuts % (Manual) Lymphocytes % (Manual) Eosinophils % (Manual) Seg Neutrophils # Lymphocytes # (Manual) Eosinophils # (Manual) PT INR D-Dimer POC ABG pH POC ABG pCO2 POC ABG pO2 ABG pO2 ABG HCO3 ABG Base Excess ABG Hemoglobin Oxyhemoglobin Sodium Potassium Chloride Carbon Dioxide BUN 43 H Creatinine 3.2 H Glucose POC Glucose Calcium Phosphorus 2.30 L Magnesium ALT Alkaline Phosphatase Total Creatine Kinase CK-MB (CK-2) Rel Index Troponin T Albumin LDL Cholesterol Direct PTH Intact 267.6 H Salicylates Acetaminophen Crossmatch 03/02/19 03/02/19 03/03/19 12:32 18:20 13:30 WBC RBC Hgb Hct MCV MCH MCHC RDW Plt Count Lymph % (Auto) [place] % (Auto) Eos % (Auto) Baso % (Auto) Lymph # [place] # Eos # Baso # Seg Neutrophils % Seg Neuts % (Manual) Lymphocytes % (Manual) Eosinophils % (Manual) Seg Neutrophils # Lymphocytes # (Manual) Eosinophils # (Manual) PT INR D-Dimer POC ABG pH POC ABG pCO2 POC ABG pO2 ABG pO2 ABG HCO3 ABG Base Excess ABG Hemoglobin Oxyhemoglobin Sodium Potassium Chloride 97.3 L Carbon Dioxide BUN 26 H Creatinine 2.2 H Glucose 73 L POC Glucose 111 H 156 H Calcium Phosphorus Magnesium ALT Alkaline Phosphatase Total Creatine Kinase CK-MB (CK-2) Rel Index Troponin T Albumin LDL Cholesterol Direct PTH Intact Salicylates Acetaminophen Crossmatch 03/04/19 03/04/19 03/04/19 00:02 05:37 05:40 WBC RBC 2.63 L Hgb 7.2 L Hct 22.2 L MCV MCH MCHC RDW 20.2 H Plt Count Lymph % (Auto) 10.5 L [place] % (Auto) Eos % (Auto) 4.6 H Baso % (Auto) Lymph # 0.7 L [place] # Eos # Baso # Seg Neutrophils % 76.9 H Seg Neuts % (Manual) Lymphocytes % (Manual) Eosinophils % (Manual) Seg Neutrophils # Lymphocytes # (Manual) Eosinophils # (Manual) PT INR D-Dimer POC ABG pH POC ABG pCO2 POC ABG pO2 ABG pO2 ABG HCO3 ABG Base Excess ABG Hemoglobin Oxyhemoglobin Sodium Potassium Chloride Carbon Dioxide BUN Creatinine Glucose POC Glucose 136 H 123 H Calcium Phosphorus Magnesium ALT Alkaline Phosphatase Total Creatine Kinase CK-MB (CK-2) Rel Index Troponin T Albumin LDL Cholesterol Direct PTH Intact Salicylates Acetaminophen Crossmatch 03/04/19 03/04/19 03/04/19 05:40 11:39 23:20 WBC RBC Hgb Hct MCV MCH MCHC RDW Plt Count Lymph % (Auto) [place] % (Auto) Eos % (Auto) Baso % (Auto) Lymph # [place] # Eos # Baso # Seg Neutrophils % Seg Neuts % (Manual) Lymphocytes % (Manual) Eosinophils % (Manual) Seg Neutrophils # Lymphocytes # (Manual) Eosinophils # (Manual) PT INR D-Dimer POC ABG pH POC ABG pCO2 POC ABG pO2 ABG pO2 ABG HCO3 ABG Base Excess ABG Hemoglobin Oxyhemoglobin Sodium Potassium Chloride Carbon Dioxide BUN 34 H Creatinine 2.7 H Glucose 114 H POC Glucose 175 H 151 H Calcium Phosphorus Magnesium ALT Alkaline Phosphatase Total Creatine Kinase CK-MB (CK-2) Rel Index Troponin T Albumin LDL Cholesterol Direct PTH Intact Salicylates Acetaminophen Crossmatch 03/05/19 03/05/19 03/05/19 05:37 12:08 17:11 WBC RBC Hgb Hct MCV MCH MCHC RDW Plt Count Lymph % (Auto) [place] % (Auto) Eos % (Auto) Baso % (Auto) Lymph # [place] # Eos # Baso # Seg Neutrophils % Seg Neuts % (Manual) Lymphocytes % (Manual) Eosinophils % (Manual) Seg Neutrophils # Lymphocytes # (Manual) Eosinophils # (Manual) PT INR D-Dimer POC ABG pH POC ABG pCO2 POC ABG pO2 ABG pO2 ABG HCO3 ABG Base Excess ABG Hemoglobin Oxyhemoglobin Sodium Potassium Chloride Carbon Dioxide BUN Creatinine Glucose POC Glucose 134 H 135 H 135 H Calcium Phosphorus Magnesium ALT Alkaline Phosphatase Total Creatine Kinase CK-MB (CK-2) Rel Index Troponin T Albumin LDL Cholesterol Direct PTH Intact Salicylates Acetaminophen Crossmatch 03/06/19 03/06/19 03/06/19 00:16 13:05 18:09 WBC RBC Hgb Hct MCV MCH MCHC RDW Plt Count Lymph % (Auto) [place] % (Auto) Eos % (Auto) Baso % (Auto) Lymph # [place] # Eos # Baso # Seg Neutrophils % Seg Neuts % (Manual) Lymphocytes % (Manual) Eosinophils % (Manual) Seg Neutrophils # Lymphocytes # (Manual) Eosinophils # (Manual) PT INR D-Dimer POC ABG pH POC ABG pCO2 POC ABG pO2 ABG pO2 ABG HCO3 ABG Base Excess ABG Hemoglobin Oxyhemoglobin Sodium Potassium Chloride Carbon Dioxide BUN Creatinine Glucose POC Glucose 117 H 113 H 131 H Calcium Phosphorus Magnesium ALT Alkaline Phosphatase Total Creatine Kinase CK-MB (CK-2) Rel Index Troponin T Albumin LDL Cholesterol Direct PTH Intact Salicylates Acetaminophen Crossmatch 03/07/19 03/08/19 03/08/19 05:25 05:33 16:00 WBC RBC 2.44 L Hgb 6.6 L Hct 20.8 L MCV MCH 27 L MCHC RDW 19.2 H Plt Count Lymph % (Auto) [place] % (Auto) Eos % (Auto) 8.6 H Baso % (Auto) Lymph # 0.8 L [place] # Eos # 0.5 H Baso # Seg Neutrophils % 70.7 H Seg Neuts % (Manual) Lymphocytes % (Manual) Eosinophils % (Manual) Seg Neutrophils # Lymphocytes # (Manual) Eosinophils # (Manual) PT INR D-Dimer POC ABG pH POC ABG pCO2 POC ABG pO2 ABG pO2 ABG HCO3 ABG Base Excess ABG Hemoglobin Oxyhemoglobin Sodium Potassium Chloride Carbon Dioxide BUN Creatinine Glucose POC Glucose 106 H 108 H Calcium Phosphorus Magnesium ALT Alkaline Phosphatase Total Creatine Kinase CK-MB (CK-2) Rel Index Troponin T Albumin LDL Cholesterol Direct PTH Intact Salicylates Acetaminophen Crossmatch 03/08/19 03/08/19 03/08/19 16:00 18:38 Unknown WBC RBC Hgb Hct MCV MCH MCHC RDW Plt Count Lymph % (Auto) [place] % (Auto) Eos % (Auto) Baso % (Auto) Lymph # [place] # Eos # Baso # Seg Neutrophils % Seg Neuts % (Manual) Lymphocytes % (Manual) Eosinophils % (Manual) Seg Neutrophils # Lymphocytes # (Manual) Eosinophils # (Manual) PT INR D-Dimer POC ABG pH POC ABG pCO2 POC ABG pO2 ABG pO2 ABG HCO3 ABG Base Excess ABG Hemoglobin Oxyhemoglobin Sodium Potassium 5.4 H D Chloride Carbon Dioxide BUN 47 H Creatinine 2.6 H Glucose POC Glucose 123 H Calcium Phosphorus Magnesium ALT < 5 L Alkaline Phosphatase Total Creatine Kinase CK-MB (CK-2) Rel Index Troponin T Albumin 2.2 L LDL Cholesterol Direct PTH Intact Salicylates Acetaminophen Crossmatch See Detail 03/09/19 03/09/19 03/09/19 10:48 12:28 13:53 WBC RBC 2.85 L Hgb 7.7 L Hct 24.2 L MCV MCH 27 L MCHC RDW 18.7 H Plt Count Lymph % (Auto) [place] % (Auto) Eos % (Auto) Baso % (Auto) Lymph # [place] # Eos # Baso # Seg Neutrophils % Seg Neuts % (Manual) Lymphocytes % (Manual) Eosinophils % (Manual) Seg Neutrophils # Lymphocytes # (Manual) Eosinophils # (Manual) PT INR D-Dimer POC ABG pH POC ABG pCO2 POC ABG pO2 ABG pO2 ABG HCO3 30.5 H ABG Base Excess 5.6 H ABG Hemoglobin 8.1 L Oxyhemoglobin 93.8 L Sodium Potassium Chloride Carbon Dioxide BUN Creatinine Glucose POC Glucose 114 H Calcium Phosphorus Magnesium ALT Alkaline Phosphatase Total Creatine Kinase CK-MB (CK-2) Rel Index Troponin T Albumin LDL Cholesterol Direct PTH Intact Salicylates Acetaminophen Crossmatch 03/09/19 03/09/19 03/10/19 17:58 23:53 12:01 WBC RBC Hgb Hct MCV MCH MCHC RDW Plt Count Lymph % (Auto) [place] % (Auto) Eos % (Auto) Baso % (Auto) Lymph # [place] # Eos # Baso # Seg Neutrophils % Seg Neuts % (Manual) Lymphocytes % (Manual) Eosinophils % (Manual) Seg Neutrophils # Lymphocytes # (Manual) Eosinophils # (Manual) PT INR D-Dimer POC ABG pH POC ABG pCO2 POC ABG pO2 ABG pO2 ABG HCO3 ABG Base Excess ABG Hemoglobin Oxyhemoglobin Sodium Potassium Chloride Carbon Dioxide BUN Creatinine Glucose POC Glucose 108 H 128 H 144 H Calcium Phosphorus Magnesium ALT Alkaline Phosphatase Total Creatine Kinase CK-MB (CK-2) Rel Index Troponin T Albumin LDL Cholesterol Direct PTH Intact Salicylates Acetaminophen Crossmatch 03/10/19 03/11/19 03/11/19 16:50 00:24 05:02 WBC RBC Hgb Hct MCV MCH MCHC RDW Plt Count Lymph % (Auto) [place] % (Auto) Eos % (Auto) Baso % (Auto) Lymph # [place] # Eos # Baso # Seg Neutrophils % Seg Neuts % (Manual) Lymphocytes % (Manual) Eosinophils % (Manual) Seg Neutrophils # Lymphocytes # (Manual) Eosinophils # (Manual) PT INR D-Dimer POC ABG pH POC ABG pCO2 POC ABG pO2 ABG pO2 ABG HCO3 ABG Base Excess ABG Hemoglobin Oxyhemoglobin Sodium Potassium Chloride Carbon Dioxide BUN Creatinine Glucose POC Glucose 147 H 123 H 120 H Calcium Phosphorus Magnesium ALT Alkaline Phosphatase Total Creatine Kinase CK-MB (CK-2) Rel Index Troponin T Albumin LDL Cholesterol Direct PTH Intact Salicylates Acetaminophen Crossmatch 03/11/19 03/11/19 03/11/19 11:56 12:20 18:37 WBC RBC Hgb Hct MCV MCH MCHC RDW Plt Count Lymph % (Auto) [place] % (Auto) Eos % (Auto) Baso % (Auto) Lymph # [place] # Eos # Baso # Seg Neutrophils % Seg Neuts % (Manual) Lymphocytes % (Manual) Eosinophils % (Manual) Seg Neutrophils # Lymphocytes # (Manual) Eosinophils # (Manual) PT INR D-Dimer POC ABG pH POC ABG pCO2 POC ABG pO2 ABG pO2 ABG HCO3 ABG Base Excess ABG Hemoglobin Oxyhemoglobin Sodium Potassium 5.2 H Chloride Carbon Dioxide BUN Creatinine Glucose POC Glucose 123 H 125 H Calcium Phosphorus Magnesium ALT Alkaline Phosphatase Total Creatine Kinase CK-MB (CK-2) Rel Index Troponin T Albumin LDL Cholesterol Direct PTH Intact Salicylates Acetaminophen Crossmatch 03/11/19 03/12/19 03/12/19 22:52 12:04 18:25 WBC RBC Hgb Hct MCV MCH MCHC RDW Plt Count Lymph % (Auto) [place] % (Auto) Eos % (Auto) Baso % (Auto) Lymph # [place] # Eos # Baso # Seg Neutrophils % Seg Neuts % (Manual) Lymphocytes % (Manual) Eosinophils % (Manual) Seg Neutrophils # Lymphocytes # (Manual) Eosinophils # (Manual) PT INR D-Dimer POC ABG pH POC ABG pCO2 POC ABG pO2 ABG pO2 ABG HCO3 ABG Base Excess ABG Hemoglobin Oxyhemoglobin Sodium Potassium Chloride Carbon Dioxide BUN Creatinine Glucose POC Glucose 110 H 106 H 118 H Calcium Phosphorus Magnesium ALT Alkaline Phosphatase Total Creatine Kinase CK-MB (CK-2) Rel Index Troponin T Albumin LDL Cholesterol Direct PTH Intact Salicylates Acetaminophen Crossmatch 03/12/19 03/13/19 03/13/19 23:36 04:38 04:38 WBC RBC 2.95 L Hgb 7.9 L Hct 24.9 L MCV MCH 27 L MCHC RDW 19.9 H Plt Count Lymph % (Auto) 11.1 L [place] % (Auto) 8.1 H Eos % (Auto) 4.4 H Baso % (Auto) Lymph # 0.9 L [place] # Eos # Baso # Seg Neutrophils % 75.4 H Seg Neuts % (Manual) Lymphocytes % (Manual) Eosinophils % (Manual) Seg Neutrophils # Lymphocytes # (Manual) Eosinophils # (Manual) PT INR D-Dimer POC ABG pH POC ABG pCO2 POC ABG pO2 ABG pO2 ABG HCO3 ABG Base Excess ABG Hemoglobin Oxyhemoglobin Sodium 136 L Potassium 5.1 H Chloride 93.8 L Carbon Dioxide BUN 48 H Creatinine 2.7 H Glucose 102 H POC Glucose 115 H Calcium Phosphorus Magnesium ALT < 5 L Alkaline Phosphatase 143 H Total Creatine Kinase CK-MB (CK-2) Rel Index Troponin T Albumin 2.5 L LDL Cholesterol Direct PTH Intact Salicylates Acetaminophen Crossmatch 03/13/19 03/13/19 03/13/19 05:33 13:37 18:03 WBC RBC Hgb Hct MCV MCH MCHC RDW Plt Count Lymph % (Auto) [place] % (Auto) Eos % (Auto) Baso % (Auto) Lymph # [place] # Eos # Baso # Seg Neutrophils % Seg Neuts % (Manual) Lymphocytes % (Manual) Eosinophils % (Manual) Seg Neutrophils # Lymphocytes # (Manual) Eosinophils # (Manual) PT INR D-Dimer POC ABG pH POC ABG pCO2 POC ABG pO2 ABG pO2 ABG HCO3 ABG Base Excess ABG Hemoglobin Oxyhemoglobin Sodium Potassium Chloride Carbon Dioxide BUN Creatinine Glucose POC Glucose 140 H 150 H 158 H Calcium Phosphorus Magnesium ALT Alkaline Phosphatase Total Creatine Kinase CK-MB (CK-2) Rel Index Troponin T Albumin LDL Cholesterol Direct PTH Intact Salicylates Acetaminophen Crossmatch 03/13/19 03/14/19 03/14/19 23:32 05:24 12:20 WBC RBC Hgb Hct MCV MCH MCHC RDW Plt Count Lymph % (Auto) [place] % (Auto) Eos % (Auto) Baso % (Auto) Lymph # [place] # Eos # Baso # Seg Neutrophils % Seg Neuts % (Manual) Lymphocytes % (Manual) Eosinophils % (Manual) Seg Neutrophils # Lymphocytes # (Manual) Eosinophils # (Manual) PT INR D-Dimer POC ABG pH POC ABG pCO2 POC ABG pO2 ABG pO2 ABG HCO3 ABG Base Excess ABG Hemoglobin Oxyhemoglobin Sodium Potassium Chloride Carbon Dioxide BUN Creatinine Glucose POC Glucose 162 H 146 H 127 H Calcium Phosphorus Magnesium ALT Alkaline Phosphatase Total Creatine Kinase CK-MB (CK-2) Rel Index Troponin T Albumin LDL Cholesterol Direct PTH Intact Salicylates Acetaminophen Crossmatch 03/14/19 03/14/19 03/15/19 18:05 23:57 04:38 WBC 12.8 H RBC 3.11 L Hgb 8.1 L Hct 26.5 L MCV MCH 26 L MCHC 31 L RDW 19.7 H Plt Count Lymph % (Auto) 4.4 L [place] % (Auto) 7.4 H Eos % (Auto) Baso % (Auto) Lymph # 0.6 L [place] # 0.9 H Eos # Baso # Seg Neutrophils % 87.3 H Seg Neuts % (Manual) Lymphocytes % (Manual) Eosinophils % (Manual) Seg Neutrophils # 11.2 H Lymphocytes # (Manual) Eosinophils # (Manual) PT INR D-Dimer POC ABG pH POC ABG pCO2 POC ABG pO2 ABG pO2 ABG HCO3 ABG Base Excess ABG Hemoglobin Oxyhemoglobin Sodium Potassium Chloride Carbon Dioxide BUN Creatinine Glucose POC Glucose 142 H 155 H Calcium Phosphorus Magnesium ALT Alkaline Phosphatase Total Creatine Kinase CK-MB (CK-2) Rel Index Troponin T Albumin LDL Cholesterol Direct PTH Intact Salicylates Acetaminophen Crossmatch 03/15/19 03/15/19 03/15/19 04:38 05:31 11:32 WBC RBC Hgb Hct MCV MCH MCHC RDW Plt Count Lymph % (Auto) [place] % (Auto) Eos % (Auto) Baso % (Auto) Lymph # [place] # Eos # Baso # Seg Neutrophils % Seg Neuts % (Manual) Lymphocytes % (Manual) Eosinophils % (Manual) Seg Neutrophils # Lymphocytes # (Manual) Eosinophils # (Manual) PT INR D-Dimer POC ABG pH POC ABG pCO2 POC ABG pO2 ABG pO2 ABG HCO3 ABG Base Excess ABG Hemoglobin Oxyhemoglobin Sodium 135 L Potassium Chloride 91.9 L Carbon Dioxide BUN 54 H Creatinine 2.8 H Glucose 128 H POC Glucose 160 H 109 H Calcium 11.1 H Phosphorus Magnesium ALT Alkaline Phosphatase 161 H Total Creatine Kinase CK-MB (CK-2) Rel Index Troponin T Albumin 2.3 L LDL Cholesterol Direct PTH Intact Salicylates Acetaminophen Crossmatch 03/15/19 03/15/19 03/16/19 18:15 23:41 05:40 WBC RBC Hgb Hct MCV MCH MCHC RDW Plt Count Lymph % (Auto) [place] % (Auto) Eos % (Auto) Baso % (Auto) Lymph # [place] # Eos # Baso # Seg Neutrophils % Seg Neuts % (Manual) Lymphocytes % (Manual) Eosinophils % (Manual) Seg Neutrophils # Lymphocytes # (Manual) Eosinophils # (Manual) PT INR D-Dimer POC ABG pH POC ABG pCO2 POC ABG pO2 ABG pO2 ABG HCO3 ABG Base Excess ABG Hemoglobin Oxyhemoglobin Sodium Potassium Chloride Carbon Dioxide BUN Creatinine Glucose POC Glucose 151 H 110 H 163 H Calcium Phosphorus Magnesium ALT Alkaline Phosphatase Total Creatine Kinase CK-MB (CK-2) Rel Index Troponin T Albumin LDL Cholesterol Direct PTH Intact Salicylates Acetaminophen Crossmatch 03/16/19 03/16/19 03/16/19 11:55 17:04 23:58 WBC RBC Hgb Hct MCV MCH MCHC RDW Plt Count Lymph % (Auto) [place] % (Auto) Eos % (Auto) Baso % (Auto) Lymph # [place] # Eos # Baso # Seg Neutrophils % Seg Neuts % (Manual) Lymphocytes % (Manual) Eosinophils % (Manual) Seg Neutrophils # Lymphocytes # (Manual) Eosinophils # (Manual) PT INR D-Dimer POC ABG pH POC ABG pCO2 POC ABG pO2 ABG pO2 ABG HCO3 ABG Base Excess ABG Hemoglobin Oxyhemoglobin Sodium Potassium Chloride Carbon Dioxide BUN Creatinine Glucose POC Glucose 114 H 147 H 192 H Calcium Phosphorus Magnesium ALT Alkaline Phosphatase Total Creatine Kinase CK-MB (CK-2) Rel Index Troponin T Albumin LDL Cholesterol Direct PTH Intact Salicylates Acetaminophen Crossmatch 03/17/19 03/17/19 03/17/19 05:53 11:17 17:01 WBC RBC Hgb Hct MCV MCH MCHC RDW Plt Count Lymph % (Auto) [place] % (Auto) Eos % (Auto) Baso % (Auto) Lymph # [place] # Eos # Baso # Seg Neutrophils % Seg Neuts % (Manual) Lymphocytes % (Manual) Eosinophils % (Manual) Seg Neutrophils # Lymphocytes # (Manual) Eosinophils # (Manual) PT INR D-Dimer POC ABG pH POC ABG pCO2 POC ABG pO2 ABG pO2 ABG HCO3 ABG Base Excess ABG Hemoglobin Oxyhemoglobin Sodium Potassium Chloride Carbon Dioxide BUN Creatinine Glucose POC Glucose 151 H 161 H 152 H Calcium Phosphorus Magnesium ALT Alkaline Phosphatase Total Creatine Kinase CK-MB (CK-2) Rel Index Troponin T Albumin LDL Cholesterol Direct PTH Intact Salicylates Acetaminophen Crossmatch 03/17/19 03/18/19 03/18/19 21:47 04:15 04:44 WBC RBC Hgb Hct MCV MCH MCHC RDW Plt Count Lymph % (Auto) [place] % (Auto) Eos % (Auto) Baso % (Auto) Lymph # [place] # Eos # Baso # Seg Neutrophils % Seg Neuts % (Manual) Lymphocytes % (Manual) Eosinophils % (Manual) Seg Neutrophils # Lymphocytes # (Manual) Eosinophils # (Manual) PT INR D-Dimer POC ABG pH POC ABG pCO2 POC ABG pO2 ABG pO2 102.8 H ABG HCO3 28.3 H ABG Base Excess ABG Hemoglobin 10.4 L Oxyhemoglobin 94.5 L Sodium Potassium Chloride Carbon Dioxide BUN Creatinine Glucose POC Glucose 170 H 150 H Calcium Phosphorus Magnesium ALT Alkaline Phosphatase Total Creatine Kinase CK-MB (CK-2) Rel Index Troponin T Albumin LDL Cholesterol Direct PTH Intact Salicylates Acetaminophen Crossmatch 03/18/19 03/18/19 03/18/19 06:38 12:12 17:47 WBC RBC Hgb Hct MCV MCH MCHC RDW Plt Count Lymph % (Auto) [place] % (Auto) Eos % (Auto) Baso % (Auto) Lymph # [place] # Eos # Baso # Seg Neutrophils % Seg Neuts % (Manual) Lymphocytes % (Manual) Eosinophils % (Manual) Seg Neutrophils # Lymphocytes # (Manual) Eosinophils # (Manual) PT INR D-Dimer POC ABG pH 7.510 H POC ABG pCO2 POC ABG pO2 164 H ABG pO2 ABG HCO3 ABG Base Excess ABG Hemoglobin Oxyhemoglobin Sodium Potassium Chloride Carbon Dioxide BUN Creatinine Glucose POC Glucose 145 H 149 H Calcium Phosphorus Magnesium ALT Alkaline Phosphatase Total Creatine Kinase CK-MB (CK-2) Rel Index Troponin T Albumin LDL Cholesterol Direct PTH Intact Salicylates Acetaminophen Crossmatch 03/18/19 03/19/19 03/19/19 23:25 01:11 04:23 WBC 15.6 H RBC 2.51 L Hgb 6.5 L Hct 21.6 L MCV MCH 26 L MCHC 30 L RDW 19.8 H Plt Count Lymph % (Auto) 6.0 L [place] % (Auto) Eos % (Auto) Baso % (Auto) Lymph # 0.9 L [place] # 1.0 H Eos # Baso # Seg Neutrophils % 85.5 H Seg Neuts % (Manual) Lymphocytes % (Manual) Eosinophils % (Manual) Seg Neutrophils # 13.4 H Lymphocytes # (Manual) Eosinophils # (Manual) PT INR D-Dimer POC ABG pH POC ABG pCO2 POC ABG pO2 ABG pO2 78.3 L ABG HCO3 30.7 H ABG Base Excess 5.8 H ABG Hemoglobin 5.8 L Oxyhemoglobin 94.6 L Sodium Potassium Chloride Carbon Dioxide BUN Creatinine Glucose POC Glucose 190 H Calcium Phosphorus Magnesium ALT Alkaline Phosphatase Total Creatine Kinase CK-MB (CK-2) Rel Index Troponin T Albumin LDL Cholesterol Direct PTH Intact Salicylates Acetaminophen Crossmatch 03/19/19 03/19/19 03/19/19 05:22 05:35 08:54 WBC RBC Hgb Hct MCV MCH MCHC RDW Plt Count Lymph % (Auto) [place] % (Auto) Eos % (Auto) Baso % (Auto) Lymph # [place] # Eos # Baso # Seg Neutrophils % Seg Neuts % (Manual) Lymphocytes % (Manual) Eosinophils % (Manual) Seg Neutrophils # Lymphocytes # (Manual) Eosinophils # (Manual) PT INR D-Dimer POC ABG pH POC ABG pCO2 POC ABG pO2 ABG pO2 ABG HCO3 ABG Base Excess ABG Hemoglobin Oxyhemoglobin Sodium Potassium Chloride Carbon Dioxide BUN Creatinine Glucose POC Glucose 167 H Calcium Phosphorus Magnesium ALT Alkaline Phosphatase Total Creatine Kinase CK-MB (CK-2) Rel Index Troponin T Albumin LDL Cholesterol Direct PTH Intact Salicylates Acetaminophen Crossmatch See Detail See Detail 03/19/19 03/19/19 03/19/19 12:36 17:02 23:25 WBC RBC Hgb Hct MCV MCH MCHC RDW Plt Count Lymph % (Auto) [place] % (Auto) Eos % (Auto) Baso % (Auto) Lymph # [place] # Eos # Baso # Seg Neutrophils % Seg Neuts % (Manual) Lymphocytes % (Manual) Eosinophils % (Manual) Seg Neutrophils # Lymphocytes # (Manual) Eosinophils # (Manual) PT INR D-Dimer POC ABG pH POC ABG pCO2 POC ABG pO2 ABG pO2 ABG HCO3 ABG Base Excess ABG Hemoglobin Oxyhemoglobin Sodium Potassium Chloride Carbon Dioxide BUN Creatinine Glucose POC Glucose 167 H 135 H 136 H Calcium Phosphorus Magnesium ALT Alkaline Phosphatase Total Creatine Kinase CK-MB (CK-2) Rel Index Troponin T Albumin LDL Cholesterol Direct PTH Intact Salicylates Acetaminophen Crossmatch 03/20/19 03/20/19 03/20/19 05:38 08:40 08:40 WBC RBC 2.61 L Hgb 7.1 L Hct 22.0 L MCV MCH 27 L MCHC RDW 19.6 H Plt Count Lymph % (Auto) 8.2 L [place] % (Auto) 8.3 H Eos % (Auto) 5.7 H Baso % (Auto) Lymph # 0.8 L [place] # Eos # 0.5 H Baso # Seg Neutrophils % 77.3 H Seg Neuts % (Manual) Lymphocytes % (Manual) Eosinophils % (Manual) Seg Neutrophils # Lymphocytes # (Manual) Eosinophils # (Manual) PT INR D-Dimer POC ABG pH POC ABG pCO2 POC ABG pO2 ABG pO2 ABG HCO3 ABG Base Excess ABG Hemoglobin Oxyhemoglobin Sodium Potassium Chloride 95.9 L Carbon Dioxide BUN 69 H Creatinine 2.8 H Glucose 115 H POC Glucose 134 H Calcium 10.5 H Phosphorus Magnesium ALT Alkaline Phosphatase Total Creatine Kinase CK-MB (CK-2) Rel Index Troponin T Albumin LDL Cholesterol Direct PTH Intact Salicylates Acetaminophen Crossmatch 03/20/19 03/20/19 03/20/19 12:13 18:04 23:49 WBC RBC Hgb Hct MCV MCH MCHC RDW Plt Count Lymph % (Auto) [place] % (Auto) Eos % (Auto) Baso % (Auto) Lymph # [place] # Eos # Baso # Seg Neutrophils % Seg Neuts % (Manual) Lymphocytes % (Manual) Eosinophils % (Manual) Seg Neutrophils # Lymphocytes # (Manual) Eosinophils # (Manual) PT INR D-Dimer POC ABG pH POC ABG pCO2 POC ABG pO2 ABG pO2 ABG HCO3 ABG Base Excess ABG Hemoglobin Oxyhemoglobin Sodium Potassium Chloride Carbon Dioxide BUN Creatinine Glucose POC Glucose 144 H 165 H 172 H Calcium Phosphorus Magnesium ALT Alkaline Phosphatase Total Creatine Kinase CK-MB (CK-2) Rel Index Troponin T Albumin LDL Cholesterol Direct PTH Intact Salicylates Acetaminophen Crossmatch 03/21/19 03/21/19 03/21/19 05:00 06:29 06:30 WBC RBC 2.72 L Hgb 7.4 L Hct 22.9 L MCV MCH 27 L MCHC RDW 19.4 H Plt Count Lymph % (Auto) [place] % (Auto) Eos % (Auto) Baso % (Auto) Lymph # [place] # Eos # Baso # Seg Neutrophils % Seg Neuts % (Manual) 81.0 H Lymphocytes % (Manual) 8.0 L Eosinophils % (Manual) 8.0 H Seg Neutrophils # Lymphocytes # (Manual) 0.7 L Eosinophils # (Manual) 0.7 H PT INR D-Dimer POC ABG pH POC ABG pCO2 POC ABG pO2 ABG pO2 ABG HCO3 ABG Base Excess ABG Hemoglobin Oxyhemoglobin Sodium Potassium Chloride Carbon Dioxide 33 H BUN 43 H Creatinine 1.7 H Glucose 145 H POC Glucose 156 H Calcium Phosphorus Magnesium ALT Alkaline Phosphatase 212 H Total Creatine Kinase CK-MB (CK-2) Rel Index Troponin T Albumin 2.2 L LDL Cholesterol Direct PTH Intact Salicylates Acetaminophen Crossmatch 03/21/19 03/21/19 03/22/19 12:02 18:07 00:21 WBC RBC Hgb Hct MCV MCH MCHC RDW Plt Count Lymph % (Auto) [place] % (Auto) Eos % (Auto) Baso % (Auto) Lymph # [place] # Eos # Baso # Seg Neutrophils % Seg Neuts % (Manual) Lymphocytes % (Manual) Eosinophils % (Manual) Seg Neutrophils # Lymphocytes # (Manual) Eosinophils # (Manual) PT INR D-Dimer POC ABG pH POC ABG pCO2 POC ABG pO2 ABG pO2 ABG HCO3 ABG Base Excess ABG Hemoglobin Oxyhemoglobin Sodium Potassium Chloride Carbon Dioxide BUN Creatinine Glucose POC Glucose 163 H 144 H 153 H Calcium Phosphorus Magnesium ALT Alkaline Phosphatase Total Creatine Kinase CK-MB (CK-2) Rel Index Troponin T Albumin LDL Cholesterol Direct PTH Intact Salicylates Acetaminophen Crossmatch 03/22/19 03/22/19 03/22/19 05:23 05:23 05:31 WBC RBC 2.58 L Hgb 7.1 L Hct 21.8 L MCV MCH 27 L MCHC RDW 19.2 H Plt Count Lymph % (Auto) [place] % (Auto) Eos % (Auto) Baso % (Auto) Lymph # [place] # Eos # Baso # Seg Neutrophils % Seg Neuts % (Manual) Lymphocytes % (Manual) Eosinophils % (Manual) Seg Neutrophils # Lymphocytes # (Manual) Eosinophils # (Manual) PT INR D-Dimer POC ABG pH POC ABG pCO2 POC ABG pO2 ABG pO2 ABG HCO3 ABG Base Excess ABG Hemoglobin Oxyhemoglobin Sodium 147 H Potassium Chloride Carbon Dioxide BUN 68 H Creatinine 2.5 H Glucose POC Glucose 116 H Calcium 10.3 H Phosphorus Magnesium ALT Alkaline Phosphatase Total Creatine Kinase CK-MB (CK-2) Rel Index Troponin T Albumin LDL Cholesterol Direct PTH Intact Salicylates Acetaminophen Crossmatch 03/22/19 03/22/19 03/22/19 08:48 12:37 17:35 WBC RBC Hgb Hct MCV MCH MCHC RDW Plt Count Lymph % (Auto) [place] % (Auto) Eos % (Auto) Baso % (Auto) Lymph # [place] # Eos # Baso # Seg Neutrophils % Seg Neuts % (Manual) Lymphocytes % (Manual) Eosinophils % (Manual) Seg Neutrophils # Lymphocytes # (Manual) Eosinophils # (Manual) PT INR D-Dimer POC ABG pH POC ABG pCO2 POC ABG pO2 ABG pO2 ABG HCO3 ABG Base Excess ABG Hemoglobin Oxyhemoglobin Sodium Potassium Chloride Carbon Dioxide BUN Creatinine Glucose POC Glucose 143 H 155 H Calcium Phosphorus Magnesium ALT Alkaline Phosphatase Total Creatine Kinase CK-MB (CK-2) Rel Index Troponin T Albumin LDL Cholesterol Direct PTH Intact Salicylates Acetaminophen Crossmatch See Detail 03/23/19 03/23/19 03/23/19 00:07 04:00 04:00 WBC 11.2 H RBC 2.32 L Hgb 6.4 L Hct 19.7 L* MCV MCH MCHC RDW 19.4 H Plt Count Lymph % (Auto) [place] % (Auto) Eos % (Auto) Baso % (Auto) Lymph # [place] # Eos # Baso # Seg Neutrophils % Seg Neuts % (Manual) Lymphocytes % (Manual) Eosinophils % (Manual) Seg Neutrophils # Lymphocytes # (Manual) Eosinophils # (Manual) PT INR D-Dimer POC ABG pH POC ABG pCO2 POC ABG pO2 ABG pO2 ABG HCO3 ABG Base Excess ABG Hemoglobin Oxyhemoglobin Sodium 147 H Potassium 5.2 H Chloride Carbon Dioxide BUN 86 H Creatinine 3.2 H Glucose 128 H POC Glucose 135 H Calcium 10.3 H Phosphorus Magnesium ALT Alkaline Phosphatase Total Creatine Kinase CK-MB (CK-2) Rel Index Troponin T Albumin LDL Cholesterol Direct PTH Intact Salicylates Acetaminophen Crossmatch 03/23/19 03/23/19 03/23/19 05:21 11:36 11:36 WBC RBC Hgb 7.9 L Hct 25.0 L MCV MCH MCHC RDW Plt Count Lymph % (Auto) [place] % (Auto) Eos % (Auto) Baso % (Auto) Lymph # [place] # Eos # Baso # Seg Neutrophils % Seg Neuts % (Manual) Lymphocytes % (Manual) Eosinophils % (Manual) Seg Neutrophils # Lymphocytes # (Manual) Eosinophils # (Manual) PT INR D-Dimer POC ABG pH POC ABG pCO2 POC ABG pO2 ABG pO2 ABG HCO3 ABG Base Excess ABG Hemoglobin Oxyhemoglobin Sodium Potassium Chloride Carbon Dioxide BUN Creatinine Glucose POC Glucose 132 H 147 H Calcium Phosphorus Magnesium ALT Alkaline Phosphatase Total Creatine Kinase CK-MB (CK-2) Rel Index Troponin T Albumin LDL Cholesterol Direct PTH Intact Salicylates Acetaminophen Crossmatch 03/23/19 03/24/19 03/24/19 17:31 01:22 04:20 WBC 12.2 H RBC 3.05 L Hgb 8.3 L Hct 25.9 L MCV MCH 27 L MCHC RDW 18.7 H Plt Count Lymph % (Auto) [place] % (Auto) Eos % (Auto) Baso % (Auto) Lymph # [place] # Eos # Baso # Seg Neutrophils % Seg Neuts % (Manual) Lymphocytes % (Manual) Eosinophils % (Manual) Seg Neutrophils # Lymphocytes # (Manual) Eosinophils # (Manual) PT INR D-Dimer POC ABG pH POC ABG pCO2 POC ABG pO2 ABG pO2 ABG HCO3 ABG Base Excess ABG Hemoglobin Oxyhemoglobin Sodium Potassium Chloride Carbon Dioxide BUN Creatinine Glucose POC Glucose 182 H 113 H Calcium Phosphorus Magnesium ALT Alkaline Phosphatase Total Creatine Kinase CK-MB (CK-2) Rel Index Troponin T Albumin LDL Cholesterol Direct PTH Intact Salicylates Acetaminophen Crossmatch 03/24/19 03/24/19 03/24/19 04:20 11:59 18:14 WBC RBC Hgb Hct MCV MCH MCHC RDW Plt Count Lymph % (Auto) [place] % (Auto) Eos % (Auto) Baso % (Auto) Lymph # [place] # Eos # Baso # Seg Neutrophils % Seg Neuts % (Manual) Lymphocytes % (Manual) Eosinophils % (Manual) Seg Neutrophils # Lymphocytes # (Manual) Eosinophils # (Manual) PT INR D-Dimer POC ABG pH POC ABG pCO2 POC ABG pO2 ABG pO2 ABG HCO3 ABG Base Excess ABG Hemoglobin Oxyhemoglobin Sodium Potassium Chloride 94.8 L Carbon Dioxide 32 H BUN 53 H Creatinine 2.3 H Glucose POC Glucose 163 H 134 H Calcium Phosphorus Magnesium ALT Alkaline Phosphatase Total Creatine Kinase CK-MB (CK-2) Rel Index Troponin T Albumin LDL Cholesterol Direct PTH Intact Salicylates Acetaminophen Crossmatch 03/24/19 03/25/19 03/25/19 23:15 05:52 12:02 WBC RBC Hgb Hct MCV MCH MCHC RDW Plt Count Lymph % (Auto) [place] % (Auto) Eos % (Auto) Baso % (Auto) Lymph # [place] # Eos # Baso # Seg Neutrophils % Seg Neuts % (Manual) Lymphocytes % (Manual) Eosinophils % (Manual) Seg Neutrophils # Lymphocytes # (Manual) Eosinophils # (Manual) PT INR D-Dimer POC ABG pH POC ABG pCO2 POC ABG pO2 ABG pO2 ABG HCO3 ABG Base Excess ABG Hemoglobin Oxyhemoglobin Sodium Potassium Chloride Carbon Dioxide BUN Creatinine Glucose POC Glucose 129 H 123 H 125 H Calcium Phosphorus Magnesium ALT Alkaline Phosphatase Total Creatine Kinase CK-MB (CK-2) Rel Index Troponin T Albumin LDL Cholesterol Direct PTH Intact Salicylates Acetaminophen Crossmatch 03/25/19 03/26/19 03/26/19 17:27 00:30 05:35 WBC RBC 3.01 L Hgb 8.1 L Hct 25.7 L MCV MCH 27 L MCHC RDW 19.2 H Plt Count Lymph % (Auto) 11.4 L [place] % (Auto) Eos % (Auto) 8.0 H Baso % (Auto) Lymph # 1.0 L [place] # Eos # 0.7 H Baso # Seg Neutrophils % 73.9 H Seg Neuts % (Manual) Lymphocytes % (Manual) Eosinophils % (Manual) Seg Neutrophils # Lymphocytes # (Manual) Eosinophils # (Manual) PT INR D-Dimer POC ABG pH POC ABG pCO2 POC ABG pO2 ABG pO2 ABG HCO3 ABG Base Excess ABG Hemoglobin Oxyhemoglobin Sodium Potassium Chloride Carbon Dioxide BUN Creatinine Glucose POC Glucose 130 H 129 H Calcium Phosphorus Magnesium ALT Alkaline Phosphatase Total Creatine Kinase CK-MB (CK-2) Rel Index Troponin T Albumin LDL Cholesterol Direct PTH Intact Salicylates Acetaminophen Crossmatch 03/26/19 03/26/19 03/26/19 05:35 05:45 12:16 WBC RBC Hgb Hct MCV MCH MCHC RDW Plt Count Lymph % (Auto) [place] % (Auto) Eos % (Auto) Baso % (Auto) Lymph # [place] # Eos # Baso # Seg Neutrophils % Seg Neuts % (Manual) Lymphocytes % (Manual) Eosinophils % (Manual) Seg Neutrophils # Lymphocytes # (Manual) Eosinophils # (Manual) PT INR D-Dimer POC ABG pH POC ABG pCO2 POC ABG pO2 ABG pO2 ABG HCO3 ABG Base Excess ABG Hemoglobin Oxyhemoglobin Sodium Potassium Chloride 94.9 L Carbon Dioxide 31 H BUN 44 H Creatinine 2.0 H Glucose POC Glucose 118 H 107 H Calcium Phosphorus Magnesium ALT Alkaline Phosphatase Total Creatine Kinase CK-MB (CK-2) Rel Index Troponin T Albumin LDL Cholesterol Direct PTH Intact Salicylates Acetaminophen Crossmatch 03/26/19 03/27/19 03/27/19 17:56 00:36 05:37 WBC RBC Hgb Hct MCV MCH MCHC RDW Plt Count Lymph % (Auto) [place] % (Auto) Eos % (Auto) Baso % (Auto) Lymph # [place] # Eos # Baso # Seg Neutrophils % Seg Neuts % (Manual) Lymphocytes % (Manual) Eosinophils % (Manual) Seg Neutrophils # Lymphocytes # (Manual) Eosinophils # (Manual) PT INR D-Dimer POC ABG pH POC ABG pCO2 POC ABG pO2 ABG pO2 ABG HCO3 ABG Base Excess ABG Hemoglobin Oxyhemoglobin Sodium Potassium Chloride Carbon Dioxide BUN Creatinine Glucose POC Glucose 107 H 110 H 122 H Calcium Phosphorus Magnesium ALT Alkaline Phosphatase Total Creatine Kinase CK-MB (CK-2) Rel Index Troponin T Albumin LDL Cholesterol Direct PTH Intact Salicylates Acetaminophen Crossmatch 03/27/19 03/27/19 03/28/19 11:22 18:00 05:17 WBC RBC Hgb Hct MCV MCH MCHC RDW Plt Count Lymph % (Auto) [place] % (Auto) Eos % (Auto) Baso % (Auto) Lymph # [place] # Eos # Baso # Seg Neutrophils % Seg Neuts % (Manual) Lymphocytes % (Manual) Eosinophils % (Manual) Seg Neutrophils # Lymphocytes # (Manual) Eosinophils # (Manual) PT INR D-Dimer POC ABG pH POC ABG pCO2 POC ABG pO2 ABG pO2 ABG HCO3 ABG Base Excess ABG Hemoglobin Oxyhemoglobin Sodium Potassium Chloride Carbon Dioxide BUN Creatinine Glucose POC Glucose 120 H 111 H 107 H Calcium Phosphorus Magnesium ALT Alkaline Phosphatase Total Creatine Kinase CK-MB (CK-2) Rel Index Troponin T Albumin LDL Cholesterol Direct PTH Intact Salicylates Acetaminophen Crossmatch 03/28/19 03/28/19 03/29/19 12:27 18:08 05:47 WBC RBC Hgb Hct MCV MCH MCHC RDW Plt Count Lymph % (Auto) [place] % (Auto) Eos % (Auto) Baso % (Auto) Lymph # [place] # Eos # Baso # Seg Neutrophils % Seg Neuts % (Manual) Lymphocytes % (Manual) Eosinophils % (Manual) Seg Neutrophils # Lymphocytes # (Manual) Eosinophils # (Manual) PT INR D-Dimer POC ABG pH POC ABG pCO2 POC ABG pO2 ABG pO2 ABG HCO3 ABG Base Excess ABG Hemoglobin Oxyhemoglobin Sodium Potassium Chloride Carbon Dioxide BUN Creatinine Glucose POC Glucose 114 H 121 H 112 H Calcium Phosphorus Magnesium ALT Alkaline Phosphatase Total Creatine Kinase CK-MB (CK-2) Rel Index Troponin T Albumin LDL Cholesterol Direct PTH Intact Salicylates Acetaminophen Crossmatch 03/29/19 03/29/19 03/30/19 12:14 18:08 00:31 WBC RBC Hgb Hct MCV MCH MCHC RDW Plt Count Lymph % (Auto) [place] % (Auto) Eos % (Auto) Baso % (Auto) Lymph # [place] # Eos # Baso # Seg Neutrophils % Seg Neuts % (Manual) Lymphocytes % (Manual) Eosinophils % (Manual) Seg Neutrophils # Lymphocytes # (Manual) Eosinophils # (Manual) PT INR D-Dimer POC ABG pH POC ABG pCO2 POC ABG pO2 ABG pO2 ABG HCO3 ABG Base Excess ABG Hemoglobin Oxyhemoglobin Sodium Potassium Chloride Carbon Dioxide BUN Creatinine Glucose POC Glucose 117 H 140 H 114 H Calcium Phosphorus Magnesium ALT Alkaline Phosphatase Total Creatine Kinase CK-MB (CK-2) Rel Index Troponin T Albumin LDL Cholesterol Direct PTH Intact Salicylates Acetaminophen Crossmatch 03/30/19 03/30/19 03/30/19 10:13 10:13 23:53 WBC RBC 2.81 L Hgb 7.7 L Hct 24.3 L MCV MCH 27 L MCHC RDW 19.0 H Plt Count Lymph % (Auto) 12.2 L [place] % (Auto) Eos % (Auto) 7.9 H Baso % (Auto) Lymph # 1.0 L [place] # Eos # 0.6 H Baso # Seg Neutrophils % 72.3 H Seg Neuts % (Manual) Lymphocytes % (Manual) Eosinophils % (Manual) Seg Neutrophils # Lymphocytes # (Manual) Eosinophils # (Manual) PT INR D-Dimer POC ABG pH POC ABG pCO2 POC ABG pO2 ABG pO2 ABG HCO3 ABG Base Excess ABG Hemoglobin Oxyhemoglobin Sodium Potassium 5.1 H Chloride 96.5 L Carbon Dioxide BUN 73 H Creatinine 3.9 H D Glucose POC Glucose 114 H Calcium 10.3 H Phosphorus 6.30 H Magnesium 2.70 H ALT Alkaline Phosphatase 185 H Total Creatine Kinase CK-MB (CK-2) Rel Index Troponin T Albumin 2.6 L LDL Cholesterol Direct PTH Intact Salicylates Acetaminophen Crossmatch 03/31/19 03/31/19 03/31/19 05:45 10:26 10:26 WBC RBC 3.01 L Hgb 8.2 L Hct 26.4 L MCV MCH 27 L MCHC 31 L RDW 20.3 H Plt Count Lymph % (Auto) 13.3 L [place] % (Auto) Eos % (Auto) 7.2 H Baso % (Auto) Lymph # 1.1 L [place] # Eos # 0.6 H Baso # Seg Neutrophils % 72.1 H Seg Neuts % (Manual) Lymphocytes % (Manual) Eosinophils % (Manual) Seg Neutrophils # Lymphocytes # (Manual) Eosinophils # (Manual) PT INR D-Dimer POC ABG pH POC ABG pCO2 POC ABG pO2 ABG pO2 ABG HCO3 ABG Base Excess ABG Hemoglobin Oxyhemoglobin Sodium Potassium Chloride 96.9 L Carbon Dioxide 33 H BUN 37 H Creatinine 2.4 H Glucose POC Glucose 108 H Calcium 10.3 H Phosphorus Magnesium ALT Alkaline Phosphatase Total Creatine Kinase CK-MB (CK-2) Rel Index Troponin T Albumin LDL Cholesterol Direct PTH Intact Salicylates Acetaminophen Crossmatch 03/31/19 04/01/19 04/01/19 12:38 05:48 12:06 WBC RBC Hgb Hct MCV MCH MCHC RDW Plt Count Lymph % (Auto) [place] % (Auto) Eos % (Auto) Baso % (Auto) Lymph # [place] # Eos # Baso # Seg Neutrophils % Seg Neuts % (Manual) Lymphocytes % (Manual) Eosinophils % (Manual) Seg Neutrophils # Lymphocytes # (Manual) Eosinophils # (Manual) PT INR D-Dimer POC ABG pH POC ABG pCO2 POC ABG pO2 ABG pO2 ABG HCO3 ABG Base Excess ABG Hemoglobin Oxyhemoglobin Sodium Potassium Chloride Carbon Dioxide BUN Creatinine Glucose POC Glucose 108 H 114 H 111 H Calcium Phosphorus Magnesium ALT Alkaline Phosphatase Total Creatine Kinase CK-MB (CK-2) Rel Index Troponin T Albumin LDL Cholesterol Direct PTH Intact Salicylates Acetaminophen Crossmatch 04/01/19 04/02/19 04/04/19 18:24 00:36 23:55 WBC RBC Hgb Hct MCV MCH MCHC RDW Plt Count Lymph % (Auto) [place] % (Auto) Eos % (Auto) Baso % (Auto) Lymph # [place] # Eos # Baso # Seg Neutrophils % Seg Neuts % (Manual) Lymphocytes % (Manual) Eosinophils % (Manual) Seg Neutrophils # Lymphocytes # (Manual) Eosinophils # (Manual) PT INR D-Dimer POC ABG pH POC ABG pCO2 POC ABG pO2 ABG pO2 ABG HCO3 ABG Base Excess ABG Hemoglobin Oxyhemoglobin Sodium Potassium Chloride Carbon Dioxide BUN Creatinine Glucose POC Glucose 113 H 117 H 109 H Calcium Phosphorus Magnesium ALT Alkaline Phosphatase Total Creatine Kinase CK-MB (CK-2) Rel Index Troponin T Albumin LDL Cholesterol Direct PTH Intact Salicylates Acetaminophen Crossmatch 04/06/19 04/06/19 04/06/19 00:11 06:02 23:30 WBC RBC Hgb Hct MCV MCH MCHC RDW Plt Count Lymph % (Auto) [place] % (Auto) Eos % (Auto) Baso % (Auto) Lymph # [place] # Eos # Baso # Seg Neutrophils % Seg Neuts % (Manual) Lymphocytes % (Manual) Eosinophils % (Manual) Seg Neutrophils # Lymphocytes # (Manual) Eosinophils # (Manual) PT INR D-Dimer POC ABG pH POC ABG pCO2 POC ABG pO2 ABG pO2 ABG HCO3 ABG Base Excess ABG Hemoglobin Oxyhemoglobin Sodium Potassium Chloride Carbon Dioxide BUN Creatinine Glucose POC Glucose 116 H 112 H 112 H Calcium Phosphorus Magnesium ALT Alkaline Phosphatase Total Creatine Kinase CK-MB (CK-2) Rel Index Troponin T Albumin LDL Cholesterol Direct PTH Intact Salicylates Acetaminophen Crossmatch 04/08/19 04/08/19 04/08/19 02:23 06:19 13:01 WBC RBC Hgb Hct MCV MCH MCHC RDW Plt Count Lymph % (Auto) [place] % (Auto) Eos % (Auto) Baso % (Auto) Lymph # [place] # Eos # Baso # Seg Neutrophils % Seg Neuts % (Manual) Lymphocytes % (Manual) Eosinophils % (Manual) Seg Neutrophils # Lymphocytes # (Manual) Eosinophils # (Manual) PT INR D-Dimer POC ABG pH POC ABG pCO2 POC ABG pO2 ABG pO2 ABG HCO3 ABG Base Excess ABG Hemoglobin Oxyhemoglobin Sodium Potassium Chloride Carbon Dioxide BUN Creatinine Glucose POC Glucose 144 H 126 H 118 H Calcium Phosphorus Magnesium ALT Alkaline Phosphatase Total Creatine Kinase CK-MB (CK-2) Rel Index Troponin T Albumin LDL Cholesterol Direct PTH Intact Salicylates Acetaminophen Crossmatch 04/08/19 04/09/19 04/10/19 23:28 05:52 06:34 WBC RBC Hgb Hct MCV MCH MCHC RDW Plt Count Lymph % (Auto) [place] % (Auto) Eos % (Auto) Baso % (Auto) Lymph # [place] # Eos # Baso # Seg Neutrophils % Seg Neuts % (Manual) Lymphocytes % (Manual) Eosinophils % (Manual) Seg Neutrophils # Lymphocytes # (Manual) Eosinophils # (Manual) PT INR D-Dimer POC ABG pH POC ABG pCO2 POC ABG pO2 ABG pO2 ABG HCO3 ABG Base Excess ABG Hemoglobin Oxyhemoglobin Sodium Potassium Chloride Carbon Dioxide BUN Creatinine Glucose POC Glucose 119 H 116 H 114 H Calcium Phosphorus Magnesium ALT Alkaline Phosphatase Total Creatine Kinase CK-MB (CK-2) Rel Index Troponin T Albumin LDL Cholesterol Direct PTH Intact Salicylates Acetaminophen Crossmatch 04/10/19 04/10/19 04/11/19 12:34 18:59 00:36 WBC RBC Hgb Hct MCV MCH MCHC RDW Plt Count Lymph % (Auto) [place] % (Auto) Eos % (Auto) Baso % (Auto) Lymph # [place] # Eos # Baso # Seg Neutrophils % Seg Neuts % (Manual) Lymphocytes % (Manual) Eosinophils % (Manual) Seg Neutrophils # Lymphocytes # (Manual) Eosinophils # (Manual) PT INR D-Dimer POC ABG pH POC ABG pCO2 POC ABG pO2 ABG pO2 ABG HCO3 ABG Base Excess ABG Hemoglobin Oxyhemoglobin Sodium Potassium Chloride Carbon Dioxide BUN Creatinine Glucose POC Glucose 112 H 109 H 124 H Calcium Phosphorus Magnesium ALT Alkaline Phosphatase Total Creatine Kinase CK-MB (CK-2) Rel Index Troponin T Albumin LDL Cholesterol Direct PTH Intact Salicylates Acetaminophen Crossmatch 04/11/19 04/11/19 04/12/19 08:01 17:25 02:18 WBC RBC Hgb Hct MCV MCH MCHC RDW Plt Count Lymph % (Auto) [place] % (Auto) Eos % (Auto) Baso % (Auto) Lymph # [place] # Eos # Baso # Seg Neutrophils % Seg Neuts % (Manual) Lymphocytes % (Manual) Eosinophils % (Manual) Seg Neutrophils # Lymphocytes # (Manual) Eosinophils # (Manual) PT INR D-Dimer POC ABG pH POC ABG pCO2 POC ABG pO2 ABG pO2 ABG HCO3 ABG Base Excess ABG Hemoglobin Oxyhemoglobin Sodium Potassium Chloride Carbon Dioxide BUN Creatinine Glucose POC Glucose 118 H 106 H 125 H Calcium Phosphorus Magnesium ALT Alkaline Phosphatase Total Creatine Kinase CK-MB (CK-2) Rel Index Troponin T Albumin LDL Cholesterol Direct PTH Intact Salicylates Acetaminophen Crossmatch 04/12/19 04/12/19 04/12/19 06:24 12:22 17:13 WBC RBC Hgb Hct MCV MCH MCHC RDW Plt Count Lymph % (Auto) [place] % (Auto) Eos % (Auto) Baso % (Auto) Lymph # [place] # Eos # Baso # Seg Neutrophils % Seg Neuts % (Manual) Lymphocytes % (Manual) Eosinophils % (Manual) Seg Neutrophils # Lymphocytes # (Manual) Eosinophils # (Manual) PT INR D-Dimer POC ABG pH POC ABG pCO2 POC ABG pO2 ABG pO2 ABG HCO3 ABG Base Excess ABG Hemoglobin Oxyhemoglobin Sodium Potassium Chloride Carbon Dioxide BUN Creatinine Glucose POC Glucose 128 H 114 H 110 H Calcium Phosphorus Magnesium ALT Alkaline Phosphatase Total Creatine Kinase CK-MB (CK-2) Rel Index Troponin T Albumin LDL Cholesterol Direct PTH Intact Salicylates Acetaminophen Crossmatch 04/13/19 04/13/19 04/13/19 06:59 07:31 07:31 WBC RBC 3.34 L Hgb 8.9 L Hct 28.6 L MCV MCH 27 L MCHC 31 L RDW 19.6 H Plt Count Lymph % (Auto) [place] % (Auto) Eos % (Auto) Baso % (Auto) Lymph # [place] # Eos # Baso # Seg Neutrophils % Seg Neuts % (Manual) Lymphocytes % (Manual) Eosinophils % (Manual) Seg Neutrophils # Lymphocytes # (Manual) Eosinophils # (Manual) PT INR D-Dimer POC ABG pH POC ABG pCO2 POC ABG pO2 ABG pO2 ABG HCO3 ABG Base Excess ABG Hemoglobin Oxyhemoglobin Sodium Potassium Chloride 96.4 L Carbon Dioxide 33 H BUN 66 H Creatinine 4.5 H Glucose 103 H POC Glucose 107 H Calcium Phosphorus Magnesium ALT Alkaline Phosphatase Total Creatine Kinase CK-MB (CK-2) Rel Index Troponin T Albumin LDL Cholesterol Direct PTH Intact Salicylates Acetaminophen Crossmatch 04/13/19 04/14/19 04/14/19 23:43 05:50 13:07 WBC RBC Hgb Hct MCV MCH MCHC RDW Plt Count Lymph % (Auto) [place] % (Auto) Eos % (Auto) Baso % (Auto) Lymph # [place] # Eos # Baso # Seg Neutrophils % Seg Neuts % (Manual) Lymphocytes % (Manual) Eosinophils % (Manual) Seg Neutrophils # Lymphocytes # (Manual) Eosinophils # (Manual) PT INR D-Dimer POC ABG pH POC ABG pCO2 POC ABG pO2 ABG pO2 ABG HCO3 ABG Base Excess ABG Hemoglobin Oxyhemoglobin Sodium Potassium Chloride Carbon Dioxide BUN Creatinine Glucose POC Glucose 119 H 112 H 112 H Calcium Phosphorus Magnesium ALT Alkaline Phosphatase Total Creatine Kinase CK-MB (CK-2) Rel Index Troponin T Albumin LDL Cholesterol Direct PTH Intact Salicylates Acetaminophen Crossmatch 04/14/19 04/15/19 04/15/19 18:35 01:18 05:17 WBC RBC Hgb Hct MCV MCH MCHC RDW Plt Count Lymph % (Auto) [place] % (Auto) Eos % (Auto) Baso % (Auto) Lymph # [place] # Eos # Baso # Seg Neutrophils % Seg Neuts % (Manual) Lymphocytes % (Manual) Eosinophils % (Manual) Seg Neutrophils # Lymphocytes # (Manual) Eosinophils # (Manual) PT INR D-Dimer POC ABG pH POC ABG pCO2 POC ABG pO2 ABG pO2 ABG HCO3 ABG Base Excess ABG Hemoglobin Oxyhemoglobin Sodium Potassium Chloride Carbon Dioxide BUN Creatinine Glucose POC Glucose 114 H 114 H 114 H Calcium Phosphorus Magnesium ALT Alkaline Phosphatase Total Creatine Kinase CK-MB (CK-2) Rel Index Troponin T Albumin LDL Cholesterol Direct PTH Intact Salicylates Acetaminophen Crossmatch 04/15/19 04/15/19 04/16/19 11:50 23:39 05:41 WBC RBC Hgb Hct MCV MCH MCHC RDW Plt Count Lymph % (Auto) [place] % (Auto) Eos % (Auto) Baso % (Auto) Lymph # [place] # Eos # Baso # Seg Neutrophils % Seg Neuts % (Manual) Lymphocytes % (Manual) Eosinophils % (Manual) Seg Neutrophils # Lymphocytes # (Manual) Eosinophils # (Manual) PT INR D-Dimer POC ABG pH POC ABG pCO2 POC ABG pO2 ABG pO2 ABG HCO3 ABG Base Excess ABG Hemoglobin Oxyhemoglobin Sodium Potassium Chloride Carbon Dioxide BUN Creatinine Glucose POC Glucose 109 H 115 H 125 H Calcium Phosphorus Magnesium ALT Alkaline Phosphatase Total Creatine Kinase CK-MB (CK-2) Rel Index Troponin T Albumin LDL Cholesterol Direct PTH Intact Salicylates Acetaminophen Crossmatch 04/16/19 04/17/19 04/17/19 12:53 01:00 12:38 WBC RBC Hgb Hct MCV MCH MCHC RDW Plt Count Lymph % (Auto) [place] % (Auto) Eos % (Auto) Baso % (Auto) Lymph # [place] # Eos # Baso # Seg Neutrophils % Seg Neuts % (Manual) Lymphocytes % (Manual) Eosinophils % (Manual) Seg Neutrophils # Lymphocytes # (Manual) Eosinophils # (Manual) PT INR D-Dimer POC ABG pH POC ABG pCO2 POC ABG pO2 ABG pO2 ABG HCO3 ABG Base Excess ABG Hemoglobin Oxyhemoglobin Sodium Potassium Chloride Carbon Dioxide BUN Creatinine Glucose POC Glucose 121 H 127 H 159 H Calcium Phosphorus Magnesium ALT Alkaline Phosphatase Total Creatine Kinase CK-MB (CK-2) Rel Index Troponin T Albumin LDL Cholesterol Direct PTH Intact Salicylates Acetaminophen Crossmatch 0904/17/19 04/18/19 18:27 23:36 07:19 WBC RBC 3.49 L Hgb 9.0 L Hct 29.9 L MCV MCH 26 L MCHC 30 L RDW 20.0 H Plt Count Lymph % (Auto) [place] % (Auto) Eos % (Auto) Baso % (Auto) Lymph # [place] # Eos # Baso # Seg Neutrophils % Seg Neuts % (Manual) Lymphocytes % (Manual) Eosinophils % (Manual) Seg Neutrophils # Lymphocytes # (Manual) Eosinophils # (Manual) PT INR D-Dimer POC ABG pH POC ABG pCO2 POC ABG pO2 ABG pO2 ABG HCO3 ABG Base Excess ABG Hemoglobin Oxyhemoglobin Sodium Potassium Chloride Carbon Dioxide BUN Creatinine Glucose POC Glucose 109 H 134 H Calcium Phosphorus Magnesium ALT Alkaline Phosphatase Total Creatine Kinase CK-MB (CK-2) Rel Index Troponin T Albumin LDL Cholesterol Direct PTH Intact Salicylates Acetaminophen Crossmatch 04/18/19 04/18/19 04/18/19 07:19 12:16 17:09 WBC RBC Hgb Hct MCV MCH MCHC RDW Plt Count Lymph % (Auto) [place] % (Auto) Eos % (Auto) Baso % (Auto) Lymph # [place] # Eos # Baso # Seg Neutrophils % Seg Neuts % (Manual) Lymphocytes % (Manual) Eosinophils % (Manual) Seg Neutrophils # Lymphocytes # (Manual) Eosinophils # (Manual) PT INR D-Dimer POC ABG pH POC ABG pCO2 POC ABG pO2 ABG pO2 ABG HCO3 ABG Base Excess ABG Hemoglobin Oxyhemoglobin Sodium Potassium Chloride Carbon Dioxide BUN 41 H Creatinine 2.9 H Glucose 122 H POC Glucose 125 H 131 H Calcium Phosphorus Magnesium ALT Alkaline Phosphatase Total Creatine Kinase CK-MB (CK-2) Rel Index Troponin T Albumin LDL Cholesterol Direct PTH Intact Salicylates Acetaminophen Crossmatch 04/18/19 04/19/19 04/19/19 23:57 05:55 11:35 WBC RBC Hgb Hct MCV MCH MCHC RDW Plt Count Lymph % (Auto) [place] % (Auto) Eos % (Auto) Baso % (Auto) Lymph # [place] # Eos # Baso # Seg Neutrophils % Seg Neuts % (Manual) Lymphocytes % (Manual) Eosinophils % (Manual) Seg Neutrophils # Lymphocytes # (Manual) Eosinophils # (Manual) PT INR D-Dimer POC ABG pH POC ABG pCO2 POC ABG pO2 ABG pO2 ABG HCO3 ABG Base Excess ABG Hemoglobin Oxyhemoglobin Sodium Potassium Chloride Carbon Dioxide BUN Creatinine Glucose POC Glucose 159 H 144 H 177 H Calcium Phosphorus Magnesium ALT Alkaline Phosphatase Total Creatine Kinase CK-MB (CK-2) Rel Index Troponin T Albumin LDL Cholesterol Direct PTH Intact Salicylates Acetaminophen Crossmatch 04/19/19 04/20/19 04/20/19 16:36 02:05 06:28 WBC RBC Hgb Hct MCV MCH MCHC RDW Plt Count Lymph % (Auto) [place] % (Auto) Eos % (Auto) Baso % (Auto) Lymph # [place] # Eos # Baso # Seg Neutrophils % Seg Neuts % (Manual) Lymphocytes % (Manual) Eosinophils % (Manual) Seg Neutrophils # Lymphocytes # (Manual) Eosinophils # (Manual) PT INR D-Dimer POC ABG pH POC ABG pCO2 POC ABG pO2 ABG pO2 ABG HCO3 ABG Base Excess ABG Hemoglobin Oxyhemoglobin Sodium Potassium Chloride Carbon Dioxide BUN Creatinine Glucose POC Glucose 134 H 142 H 132 H Calcium Phosphorus Magnesium ALT Alkaline Phosphatase Total Creatine Kinase CK-MB (CK-2) Rel Index Troponin T Albumin LDL Cholesterol Direct PTH Intact Salicylates Acetaminophen Crossmatch 04/20/19 04/20/19 04/21/19 12:37 23:34 05:59 WBC RBC Hgb Hct MCV MCH MCHC RDW Plt Count Lymph % (Auto) [place] % (Auto) Eos % (Auto) Baso % (Auto) Lymph # [place] # Eos # Baso # Seg Neutrophils % Seg Neuts % (Manual) Lymphocytes % (Manual) Eosinophils % (Manual) Seg Neutrophils # Lymphocytes # (Manual) Eosinophils # (Manual) PT INR D-Dimer POC ABG pH POC ABG pCO2 POC ABG pO2 ABG pO2 ABG HCO3 ABG Base Excess ABG Hemoglobin Oxyhemoglobin Sodium Potassium Chloride Carbon Dioxide BUN Creatinine Glucose POC Glucose 163 H 166 H 140 H Calcium Phosphorus Magnesium ALT Alkaline Phosphatase Total Creatine Kinase CK-MB (CK-2) Rel Index Troponin T Albumin LDL Cholesterol Direct PTH Intact Salicylates Acetaminophen Crossmatch 04/21/19 04/21/19 04/21/19 12:07 17:22 23:43 WBC RBC Hgb Hct MCV MCH MCHC RDW Plt Count Lymph % (Auto) [place] % (Auto) Eos % (Auto) Baso % (Auto) Lymph # [place] # Eos # Baso # Seg Neutrophils % Seg Neuts % (Manual) Lymphocytes % (Manual) Eosinophils % (Manual) Seg Neutrophils # Lymphocytes # (Manual) Eosinophils # (Manual) PT INR D-Dimer POC ABG pH POC ABG pCO2 POC ABG pO2 ABG pO2 ABG HCO3 ABG Base Excess ABG Hemoglobin Oxyhemoglobin Sodium Potassium Chloride Carbon Dioxide BUN Creatinine Glucose POC Glucose 135 H 141 H 138 H Calcium Phosphorus Magnesium ALT Alkaline Phosphatase Total Creatine Kinase CK-MB (CK-2) Rel Index Troponin T Albumin LDL Cholesterol Direct PTH Intact Salicylates Acetaminophen Crossmatch 04/22/19 04/22/19 04/22/19 05:12 18:24 23:49 WBC RBC Hgb Hct MCV MCH MCHC RDW Plt Count Lymph % (Auto) [place] % (Auto) Eos % (Auto) Baso % (Auto) Lymph # [place] # Eos # Baso # Seg Neutrophils % Seg Neuts % (Manual) Lymphocytes % (Manual) Eosinophils % (Manual) Seg Neutrophils # Lymphocytes # (Manual) Eosinophils # (Manual) PT INR D-Dimer POC ABG pH POC ABG pCO2 POC ABG pO2 ABG pO2 ABG HCO3 ABG Base Excess ABG Hemoglobin Oxyhemoglobin Sodium Potassium Chloride Carbon Dioxide BUN Creatinine Glucose POC Glucose 141 H 137 H 142 H Calcium Phosphorus Magnesium ALT Alkaline Phosphatase Total Creatine Kinase CK-MB (CK-2) Rel Index Troponin T Albumin LDL Cholesterol Direct PTH Intact Salicylates Acetaminophen Crossmatch 04/23/19 04/23/19 04/23/19 05:53 08:13 11:58 WBC RBC Hgb Hct MCV MCH MCHC RDW Plt Count Lymph % (Auto) [place] % (Auto) Eos % (Auto) Baso % (Auto) Lymph # [place] # Eos # Baso # Seg Neutrophils % Seg Neuts % (Manual) Lymphocytes % (Manual) Eosinophils % (Manual) Seg Neutrophils # Lymphocytes # (Manual) Eosinophils # (Manual) PT INR D-Dimer POC ABG pH POC ABG pCO2 POC ABG pO2 ABG pO2 ABG HCO3 ABG Base Excess ABG Hemoglobin Oxyhemoglobin Sodium Potassium Chloride Carbon Dioxide BUN Creatinine Glucose POC Glucose 132 H 154 H 165 H Calcium Phosphorus Magnesium ALT Alkaline Phosphatase Total Creatine Kinase CK-MB (CK-2) Rel Index Troponin T Albumin LDL Cholesterol Direct PTH Intact Salicylates Acetaminophen Crossmatch 04/23/19 04/24/19 04/24/19 16:28 00:28 07:00 WBC RBC Hgb Hct MCV MCH MCHC RDW Plt Count Lymph % (Auto) [place] % (Auto) Eos % (Auto) Baso % (Auto) Lymph # [place] # Eos # Baso # Seg Neutrophils % Seg Neuts % (Manual) Lymphocytes % (Manual) Eosinophils % (Manual) Seg Neutrophils # Lymphocytes # (Manual) Eosinophils # (Manual) PT INR D-Dimer POC ABG pH POC ABG pCO2 POC ABG pO2 ABG pO2 ABG HCO3 ABG Base Excess ABG Hemoglobin Oxyhemoglobin Sodium Potassium Chloride Carbon Dioxide BUN Creatinine Glucose POC Glucose 136 H 140 H 141 H Calcium Phosphorus Magnesium ALT Alkaline Phosphatase Total Creatine Kinase CK-MB (CK-2) Rel Index Troponin T Albumin LDL Cholesterol Direct PTH Intact Salicylates Acetaminophen Crossmatch 04/24/19 04/24/19 04/25/19 12:38 18:57 00:38 WBC RBC Hgb Hct MCV MCH MCHC RDW Plt Count Lymph % (Auto) [place] % (Auto) Eos % (Auto) Baso % (Auto) Lymph # [place] # Eos # Baso # Seg Neutrophils % Seg Neuts % (Manual) Lymphocytes % (Manual) Eosinophils % (Manual) Seg Neutrophils # Lymphocytes # (Manual) Eosinophils # (Manual) PT INR D-Dimer POC ABG pH POC ABG pCO2 POC ABG pO2 ABG pO2 ABG HCO3 ABG Base Excess ABG Hemoglobin Oxyhemoglobin Sodium Potassium Chloride Carbon Dioxide BUN Creatinine Glucose POC Glucose 152 H 166 H 128 H Calcium Phosphorus Magnesium ALT Alkaline Phosphatase Total Creatine Kinase CK-MB (CK-2) Rel Index Troponin T Albumin LDL Cholesterol Direct PTH Intact Salicylates Acetaminophen Crossmatch 04/25/19 04/25/19 04/25/19 05:44 13:43 18:34 WBC RBC Hgb Hct MCV MCH MCHC RDW Plt Count Lymph % (Auto) [place] % (Auto) Eos % (Auto) Baso % (Auto) Lymph # [place] # Eos # Baso # Seg Neutrophils % Seg Neuts % (Manual) Lymphocytes % (Manual) Eosinophils % (Manual) Seg Neutrophils # Lymphocytes # (Manual) Eosinophils # (Manual) PT INR D-Dimer POC ABG pH POC ABG pCO2 POC ABG pO2 ABG pO2 ABG HCO3 ABG Base Excess ABG Hemoglobin Oxyhemoglobin Sodium Potassium Chloride Carbon Dioxide BUN Creatinine Glucose POC Glucose 153 H 186 H 124 H Calcium Phosphorus Magnesium ALT Alkaline Phosphatase Total Creatine Kinase CK-MB (CK-2) Rel Index Troponin T Albumin LDL Cholesterol Direct PTH Intact Salicylates Acetaminophen Crossmatch 04/26/19 04/26/19 04/26/19 00:59 05:52 10:12 WBC 11.5 H RBC 2.84 L Hgb 7.4 L Hct 23.3 L MCV 82 L MCH 26 L MCHC RDW 20.3 H Plt Count Lymph % (Auto) 7.5 L [place] % (Auto) 7.5 H Eos % (Auto) 5.3 H Baso % (Auto) Lymph # 0.9 L [place] # 0.9 H Eos # 0.6 H Baso # Seg Neutrophils % 79.2 H Seg Neuts % (Manual) Lymphocytes % (Manual) Eosinophils % (Manual) Seg Neutrophils # 9.1 H Lymphocytes # (Manual) Eosinophils # (Manual) PT INR D-Dimer POC ABG pH POC ABG pCO2 POC ABG pO2 ABG pO2 ABG HCO3 ABG Base Excess ABG Hemoglobin Oxyhemoglobin Sodium Potassium Chloride Carbon Dioxide BUN Creatinine Glucose POC Glucose 163 H 146 H Calcium Phosphorus Magnesium ALT Alkaline Phosphatase Total Creatine Kinase CK-MB (CK-2) Rel Index Troponin T Albumin LDL Cholesterol Direct PTH Intact Salicylates Acetaminophen Crossmatch 04/26/19 04/26/19 04/26/19 10:12 12:15 19:00 WBC RBC Hgb Hct MCV MCH MCHC RDW Plt Count Lymph % (Auto) [place] % (Auto) Eos % (Auto) Baso % (Auto) Lymph # [place] # Eos # Baso # Seg Neutrophils % Seg Neuts % (Manual) Lymphocytes % (Manual) Eosinophils % (Manual) Seg Neutrophils # Lymphocytes # (Manual) Eosinophils # (Manual) PT INR D-Dimer POC ABG pH POC ABG pCO2 POC ABG pO2 ABG pO2 ABG HCO3 ABG Base Excess ABG Hemoglobin Oxyhemoglobin Sodium 130 L Potassium Chloride 87.4 L Carbon Dioxide BUN 93 H Creatinine 4.2 H Glucose 140 H POC Glucose 155 H 179 H Calcium Phosphorus Magnesium ALT Alkaline Phosphatase Total Creatine Kinase CK-MB (CK-2) Rel Index Troponin T Albumin LDL Cholesterol Direct PTH Intact Salicylates Acetaminophen Crossmatch 04/27/19 04/27/19 04/27/19 00:23 06:34 17:13 WBC RBC Hgb Hct MCV MCH MCHC RDW Plt Count Lymph % (Auto) [place] % (Auto) Eos % (Auto) Baso % (Auto) Lymph # [place] # Eos # Baso # Seg Neutrophils % Seg Neuts % (Manual) Lymphocytes % (Manual) Eosinophils % (Manual) Seg Neutrophils # Lymphocytes # (Manual) Eosinophils # (Manual) PT INR D-Dimer POC ABG pH POC ABG pCO2 POC ABG pO2 ABG pO2 ABG HCO3 ABG Base Excess ABG Hemoglobin Oxyhemoglobin Sodium Potassium Chloride Carbon Dioxide BUN Creatinine Glucose POC Glucose 158 H 140 H 152 H Calcium Phosphorus Magnesium ALT Alkaline Phosphatase Total Creatine Kinase CK-MB (CK-2) Rel Index Troponin T Albumin LDL Cholesterol Direct PTH Intact Salicylates Acetaminophen Crossmatch 04/27/19 04/28/19 04/28/19 23:50 05:18 11:37 WBC RBC Hgb Hct MCV MCH MCHC RDW Plt Count Lymph % (Auto) [place] % (Auto) Eos % (Auto) Baso % (Auto) Lymph # [place] # Eos # Baso # Seg Neutrophils % Seg Neuts % (Manual) Lymphocytes % (Manual) Eosinophils % (Manual) Seg Neutrophils # Lymphocytes # (Manual) Eosinophils # (Manual) PT INR D-Dimer POC ABG pH POC ABG pCO2 POC ABG pO2 ABG pO2 ABG HCO3 ABG Base Excess ABG Hemoglobin Oxyhemoglobin Sodium Potassium Chloride Carbon Dioxide BUN Creatinine Glucose POC Glucose 160 H 145 H 177 H Calcium Phosphorus Magnesium ALT Alkaline Phosphatase Total Creatine Kinase CK-MB (CK-2) Rel Index Troponin T Albumin LDL Cholesterol Direct PTH Intact Salicylates Acetaminophen Crossmatch 04/28/19 04/28/19 04/29/19 18:31 23:47 05:50 WBC RBC Hgb Hct MCV MCH MCHC RDW Plt Count Lymph % (Auto) [place] % (Auto) Eos % (Auto) Baso % (Auto) Lymph # [place] # Eos # Baso # Seg Neutrophils % Seg Neuts % (Manual) Lymphocytes % (Manual) Eosinophils % (Manual) Seg Neutrophils # Lymphocytes # (Manual) Eosinophils # (Manual) PT INR D-Dimer POC ABG pH POC ABG pCO2 POC ABG pO2 ABG pO2 ABG HCO3 ABG Base Excess ABG Hemoglobin Oxyhemoglobin Sodium Potassium Chloride Carbon Dioxide BUN Creatinine Glucose POC Glucose 153 H 117 H 177 H Calcium Phosphorus Magnesium ALT Alkaline Phosphatase Total Creatine Kinase CK-MB (CK-2) Rel Index Troponin T Albumin LDL Cholesterol Direct PTH Intact Salicylates Acetaminophen Crossmatch 04/29/19 04/30/19 04/30/19 17:04 01:02 06:42 WBC RBC Hgb Hct MCV MCH MCHC RDW Plt Count Lymph % (Auto) [place] % (Auto) Eos % (Auto) Baso % (Auto) Lymph # [place] # Eos # Baso # Seg Neutrophils % Seg Neuts % (Manual) Lymphocytes % (Manual) Eosinophils % (Manual) Seg Neutrophils # Lymphocytes # (Manual) Eosinophils # (Manual) PT INR D-Dimer POC ABG pH POC ABG pCO2 POC ABG pO2 ABG pO2 ABG HCO3 ABG Base Excess ABG Hemoglobin Oxyhemoglobin Sodium Potassium Chloride Carbon Dioxide BUN Creatinine Glucose POC Glucose 205 H 143 H 145 H Calcium Phosphorus Magnesium ALT Alkaline Phosphatase Total Creatine Kinase CK-MB (CK-2) Rel Index Troponin T Albumin LDL Cholesterol Direct PTH Intact Salicylates Acetaminophen Crossmatch 04/30/19 04/30/19 04/30/19 11:31 18:12 23:38 WBC RBC Hgb Hct MCV MCH MCHC RDW Plt Count Lymph % (Auto) [place] % (Auto) Eos % (Auto) Baso % (Auto) Lymph # [place] # Eos # Baso # Seg Neutrophils % Seg Neuts % (Manual) Lymphocytes % (Manual) Eosinophils % (Manual) Seg Neutrophils # Lymphocytes # (Manual) Eosinophils # (Manual) PT INR D-Dimer POC ABG pH POC ABG pCO2 POC ABG pO2 ABG pO2 ABG HCO3 ABG Base Excess ABG Hemoglobin Oxyhemoglobin Sodium Potassium Chloride Carbon Dioxide BUN Creatinine Glucose POC Glucose 162 H 117 H 139 H Calcium Phosphorus Magnesium ALT Alkaline Phosphatase Total Creatine Kinase CK-MB (CK-2) Rel Index Troponin T Albumin LDL Cholesterol Direct PTH Intact Salicylates Acetaminophen Crossmatch 05/01/19 05/01/19 05/02/19 06:06 23:41 05:59 WBC RBC Hgb Hct MCV MCH MCHC RDW Plt Count Lymph % (Auto) [place] % (Auto) Eos % (Auto) Baso % (Auto) Lymph # [place] # Eos # Baso # Seg Neutrophils % Seg Neuts % (Manual) Lymphocytes % (Manual) Eosinophils % (Manual) Seg Neutrophils # Lymphocytes # (Manual) Eosinophils # (Manual) PT INR D-Dimer POC ABG pH POC ABG pCO2 POC ABG pO2 ABG pO2 ABG HCO3 ABG Base Excess ABG Hemoglobin Oxyhemoglobin Sodium Potassium Chloride Carbon Dioxide BUN Creatinine Glucose POC Glucose 150 H 140 H 130 H Calcium Phosphorus Magnesium ALT Alkaline Phosphatase Total Creatine Kinase CK-MB (CK-2) Rel Index Troponin T Albumin LDL Cholesterol Direct PTH Intact Salicylates Acetaminophen Crossmatch 05/02/19 05/02/19 05/03/19 11:55 18:10 00:15 WBC RBC Hgb Hct MCV MCH MCHC RDW Plt Count Lymph % (Auto) [place] % (Auto) Eos % (Auto) Baso % (Auto) Lymph # [place] # Eos # Baso # Seg Neutrophils % Seg Neuts % (Manual) Lymphocytes % (Manual) Eosinophils % (Manual) Seg Neutrophils # Lymphocytes # (Manual) Eosinophils # (Manual) PT INR D-Dimer POC ABG pH POC ABG pCO2 POC ABG pO2 ABG pO2 ABG HCO3 ABG Base Excess ABG Hemoglobin Oxyhemoglobin Sodium Potassium Chloride Carbon Dioxide BUN Creatinine Glucose POC Glucose 146 H 141 H 145 H Calcium Phosphorus Magnesium ALT Alkaline Phosphatase Total Creatine Kinase CK-MB (CK-2) Rel Index Troponin T Albumin LDL Cholesterol Direct PTH Intact Salicylates Acetaminophen Crossmatch 05/03/19 05/03/19 05/03/19 05:49 05:49 06:01 WBC RBC 2.84 L Hgb 7.2 L Hct 22.9 L MCV 81 L MCH 26 L MCHC RDW 20.6 H Plt Count 456 H Lymph % (Auto) 11.8 L [place] % (Auto) Eos % (Auto) 10.6 H Baso % (Auto) Lymph # 1.1 L [place] # Eos # 1.0 H Baso # Seg Neutrophils % 70.4 H Seg Neuts % (Manual) Lymphocytes % (Manual) Eosinophils % (Manual) Seg Neutrophils # Lymphocytes # (Manual) Eosinophils # (Manual) PT INR D-Dimer POC ABG pH POC ABG pCO2 POC ABG pO2 ABG pO2 ABG HCO3 ABG Base Excess ABG Hemoglobin Oxyhemoglobin Sodium Potassium Chloride 94.8 L Carbon Dioxide BUN 66 H Creatinine 3.6 H Glucose 129 H POC Glucose 135 H Calcium Phosphorus Magnesium ALT Alkaline Phosphatase Total Creatine Kinase CK-MB (CK-2) Rel Index Troponin T Albumin LDL Cholesterol Direct PTH Intact Salicylates Acetaminophen Crossmatch 05/03/19 05/03/19 05/04/19 11:04 18:40 00:06 WBC RBC Hgb Hct MCV MCH MCHC RDW Plt Count Lymph % (Auto) [place] % (Auto) Eos % (Auto) Baso % (Auto) Lymph # [place] # Eos # Baso # Seg Neutrophils % Seg Neuts % (Manual) Lymphocytes % (Manual) Eosinophils % (Manual) Seg Neutrophils # Lymphocytes # (Manual) Eosinophils # (Manual) PT INR D-Dimer POC ABG pH POC ABG pCO2 POC ABG pO2 ABG pO2 ABG HCO3 ABG Base Excess ABG Hemoglobin Oxyhemoglobin Sodium Potassium Chloride Carbon Dioxide BUN Creatinine Glucose POC Glucose 191 H 167 H 137 H Calcium Phosphorus Magnesium ALT Alkaline Phosphatase Total Creatine Kinase CK-MB (CK-2) Rel Index Troponin T Albumin LDL Cholesterol Direct PTH Intact Salicylates Acetaminophen Crossmatch 05/04/19 05/04/19 05/04/19 06:44 07:30 07:30 WBC 15.8 H RBC 2.74 L Hgb 6.7 L Hct 22.2 L MCV 81 L MCH 24 L MCHC 30 L RDW 20.4 H Plt Count 450 H Lymph % (Auto) 5.1 L [place] % (Auto) Eos % (Auto) Baso % (Auto) Lymph # 0.8 L [place] # Eos # 0.6 H Baso # Seg Neutrophils % 86.3 H Seg Neuts % (Manual) Lymphocytes % (Manual) Eosinophils % (Manual) Seg Neutrophils # 13.6 H Lymphocytes # (Manual) Eosinophils # (Manual) PT INR D-Dimer POC ABG pH POC ABG pCO2 POC ABG pO2 ABG pO2 ABG HCO3 ABG Base Excess ABG Hemoglobin Oxyhemoglobin Sodium Potassium Chloride 95.2 L Carbon Dioxide BUN 92 H Creatinine 4.8 H Glucose 139 H POC Glucose 153 H Calcium Phosphorus Magnesium ALT Alkaline Phosphatase Total Creatine Kinase CK-MB (CK-2) Rel Index Troponin T Albumin LDL Cholesterol Direct PTH Intact Salicylates Acetaminophen Crossmatch 05/04/19 05/04/19 05/05/19 12:55 16:31 01:02 WBC RBC Hgb Hct MCV MCH MCHC RDW Plt Count Lymph % (Auto) [place] % (Auto) Eos % (Auto) Baso % (Auto) Lymph # [place] # Eos # Baso # Seg Neutrophils % Seg Neuts % (Manual) Lymphocytes % (Manual) Eosinophils % (Manual) Seg Neutrophils # Lymphocytes # (Manual) Eosinophils # (Manual) PT INR D-Dimer POC ABG pH POC ABG pCO2 POC ABG pO2 ABG pO2 ABG HCO3 ABG Base Excess ABG Hemoglobin Oxyhemoglobin Sodium Potassium Chloride Carbon Dioxide BUN Creatinine Glucose POC Glucose 169 H 171 H Calcium Phosphorus Magnesium ALT Alkaline Phosphatase Total Creatine Kinase CK-MB (CK-2) Rel Index Troponin T Albumin LDL Cholesterol Direct PTH Intact Salicylates Acetaminophen Crossmatch See Detail 05/05/19 05/05/19 05/05/19 05:26 05:36 11:48 WBC 12.6 H RBC 2.73 L Hgb 6.9 L Hct 22.3 L MCV 82 L MCH 25 L MCHC 31 L RDW 21.0 H Plt Count Lymph % (Auto) 8.9 L [place] % (Auto) Eos % (Auto) Baso % (Auto) Lymph # 1.1 L [place] # 0.9 H Eos # Baso # Seg Neutrophils % 80.7 H Seg Neuts % (Manual) Lymphocytes % (Manual) Eosinophils % (Manual) Seg Neutrophils # 10.2 H Lymphocytes # (Manual) Eosinophils # (Manual) PT INR D-Dimer POC ABG pH POC ABG pCO2 POC ABG pO2 ABG pO2 ABG HCO3 ABG Base Excess ABG Hemoglobin Oxyhemoglobin Sodium Potassium Chloride Carbon Dioxide BUN Creatinine Glucose POC Glucose 153 H 173 H Calcium Phosphorus Magnesium ALT Alkaline Phosphatase Total Creatine Kinase CK-MB (CK-2) Rel Index Troponin T Albumin LDL Cholesterol Direct PTH Intact Salicylates Acetaminophen Crossmatch 05/05/19 05/06/19 05/06/19 16:42 02:24 06:12 WBC RBC Hgb Hct MCV MCH MCHC RDW Plt Count Lymph % (Auto) [place] % (Auto) Eos % (Auto) Baso % (Auto) Lymph # [place] # Eos # Baso # Seg Neutrophils % Seg Neuts % (Manual) Lymphocytes % (Manual) Eosinophils % (Manual) Seg Neutrophils # Lymphocytes # (Manual) Eosinophils # (Manual) PT INR D-Dimer POC ABG pH POC ABG pCO2 POC ABG pO2 ABG pO2 ABG HCO3 ABG Base Excess ABG Hemoglobin Oxyhemoglobin Sodium Potassium Chloride Carbon Dioxide BUN Creatinine Glucose POC Glucose 126 H 138 H 151 H Calcium Phosphorus Magnesium ALT Alkaline Phosphatase Total Creatine Kinase CK-MB (CK-2) Rel Index Troponin T Albumin LDL Cholesterol Direct PTH Intact Salicylates Acetaminophen Crossmatch 05/06/19 05/06/1905/06/19 08:15 16:48 23:16 WBC 11.8 H RBC 2.72 L Hgb 6.7 L Hct 21.7 L MCV 80 L MCH 25 L MCHC 31 L RDW 20.9 H Plt Count Lymph % (Auto) [place] % (Auto) Eos % (Auto) Baso % (Auto) Lymph # [place] # Eos # Baso # Seg Neutrophils % Seg Neuts % (Manual) Lymphocytes % (Manual) Eosinophils % (Manual) Seg Neutrophils # Lymphocytes # (Manual) Eosinophils # (Manual) PT INR D-Dimer POC ABG pH POC ABG pCO2 POC ABG pO2 ABG pO2 ABG HCO3 ABG Base Excess ABG Hemoglobin Oxyhemoglobin Sodium Potassium Chloride Carbon Dioxide BUN Creatinine Glucose POC Glucose 153 H 143 H Calcium Phosphorus Magnesium ALT Alkaline Phosphatase Total Creatine Kinase CK-MB (CK-2) Rel Index Troponin T Albumin LDL Cholesterol Direct PTH Intact Salicylates Acetaminophen Crossmatch 05/07/19 05/07/19 05/07/19 06:00 06:30 12:33 WBC RBC 3.53 L Hgb 9.1 L Hct 28.6 L D MCV 81 L MCH 26 L MCHC RDW 19.1 H Plt Count Lymph % (Auto) 9.6 L [place] % (Auto) Eos % (Auto) 4.8 H Baso % (Auto) Lymph # 1.1 L [place] # Eos # 0.5 H Baso # Seg Neutrophils % 77.8 H Seg Neuts % (Manual) Lymphocytes % (Manual) Eosinophils % (Manual) Seg Neutrophils # 8.6 H Lymphocytes # (Manual) Eosinophils # (Manual) PT INR D-Dimer POC ABG pH POC ABG pCO2 POC ABG pO2 ABG pO2 ABG HCO3 ABG Base Excess ABG Hemoglobin Oxyhemoglobin Sodium Potassium Chloride Carbon Dioxide BUN Creatinine Glucose POC Glucose 122 H 140 H Calcium Phosphorus Magnesium ALT Alkaline Phosphatase Total Creatine Kinase CK-MB (CK-2) Rel Index Troponin T Albumin LDL Cholesterol Direct PTH Intact Salicylates Acetaminophen Crossmatch 05/07/19 05/07/19 05/08/19 16:41 23:55 05:10 WBC 11.6 H RBC 3.54 L Hgb 9.1 L Hct 29.1 L MCV 82 L MCH 26 L MCHC 31 L RDW 19.6 H Plt Count Lymph % (Auto) 6.6 L [place] % (Auto) Eos % (Auto) Baso % (Auto) 1.9 H Lymph # 0.8 L [place] # Eos # Baso # 0.2 H Seg Neutrophils % 82.6 H Seg Neuts % (Manual) Lymphocytes % (Manual) Eosinophils % (Manual) Seg Neutrophils # 9.6 H Lymphocytes # (Manual) Eosinophils # (Manual) PT INR D-Dimer POC ABG pH POC ABG pCO2 POC ABG pO2 ABG pO2 ABG HCO3 ABG Base Excess ABG Hemoglobin Oxyhemoglobin Sodium Potassium Chloride Carbon Dioxide BUN Creatinine Glucose POC Glucose 143 H 153 H Calcium Phosphorus Magnesium ALT Alkaline Phosphatase Total Creatine Kinase CK-MB (CK-2) Rel Index Troponin T Albumin LDL Cholesterol Direct PTH Intact Salicylates Acetaminophen Crossmatch 05/08/19 05/08/19 05/09/19 06:09 16:55 03:27 WBC RBC Hgb Hct MCV MCH MCHC RDW Plt Count Lymph % (Auto) [place] % (Auto) Eos % (Auto) Baso % (Auto) Lymph # [place] # Eos # Baso # Seg Neutrophils % Seg Neuts % (Manual) Lymphocytes % (Manual) Eosinophils % (Manual) Seg Neutrophils # Lymphocytes # (Manual) Eosinophils # (Manual) PT INR D-Dimer POC ABG pH POC ABG pCO2 POC ABG pO2 ABG pO2 ABG HCO3 ABG Base Excess ABG Hemoglobin Oxyhemoglobin Sodium Potassium Chloride Carbon Dioxide BUN Creatinine Glucose POC Glucose 204 H 196 H 175 H Calcium Phosphorus Magnesium ALT Alkaline Phosphatase Total Creatine Kinase CK-MB (CK-2) Rel Index Troponin T Albumin LDL Cholesterol Direct PTH Intact Salicylates Acetaminophen Crossmatch 05/09/19 05/09/19 05/09/19 06:00 11:00 12:41 WBC 12.0 H RBC Hgb 9.7 L Hct 30.2 L MCV 83 L MCH 26 L MCHC RDW 20.1 H Plt Count Lymph % (Auto) 7.4 L [place] % (Auto) 7.6 H Eos % (Auto) Baso % (Auto) Lymph # 0.9 L [place] # 0.9 H Eos # Baso # Seg Neutrophils % 80.7 H Seg Neuts % (Manual) Lymphocytes % (Manual) Eosinophils % (Manual) Seg Neutrophils # 9.7 H Lymphocytes # (Manual) Eosinophils # (Manual) PT INR D-Dimer POC ABG pH POC ABG pCO2 POC ABG pO2 ABG pO2 ABG HCO3 ABG Base Excess ABG Hemoglobin Oxyhemoglobin Sodium Potassium Chloride Carbon Dioxide BUN Creatinine Glucose POC Glucose 172 H 168 H Calcium Phosphorus Magnesium ALT Alkaline Phosphatase Total Creatine Kinase CK-MB (CK-2) Rel Index Troponin T Albumin LDL Cholesterol Direct PTH Intact Salicylates Acetaminophen Crossmatch 05/09/19 05/10/19 05/10/19 17:45 01:26 06:07 WBC RBC Hgb Hct MCV MCH MCHC RDW Plt Count Lymph % (Auto) [place] % (Auto) Eos % (Auto) Baso % (Auto) Lymph # [place] # Eos # Baso # Seg Neutrophils % Seg Neuts % (Manual) Lymphocytes % (Manual) Eosinophils % (Manual) Seg Neutrophils # Lymphocytes # (Manual) Eosinophils # (Manual) PT INR D-Dimer POC ABG pH POC ABG pCO2 POC ABG pO2 ABG pO2 ABG HCO3 ABG Base Excess ABG Hemoglobin Oxyhemoglobin Sodium Potassium Chloride Carbon Dioxide BUN Creatinine Glucose POC Glucose 167 H 174 H 179 H Calcium Phosphorus Magnesium ALT Alkaline Phosphatase Total Creatine Kinase CK-MB (CK-2) Rel Index Troponin T Albumin LDL Cholesterol Direct PTH Intact Salicylates Acetaminophen Crossmatch 05/10/19 05/10/19 05/10/19 06:45 12:31 17:18 WBC RBC Hgb Hct MCV MCH MCHC RDW Plt Count Lymph % (Auto) [place] % (Auto) Eos % (Auto) Baso % (Auto) Lymph # [place] # Eos # Baso # Seg Neutrophils % Seg Neuts % (Manual) Lymphocytes % (Manual) Eosinophils % (Manual) Seg Neutrophils # Lymphocytes # (Manual) Eosinophils # (Manual) PT INR D-Dimer POC ABG pH POC ABG pCO2 POC ABG pO2 ABG pO2 ABG HCO3 ABG Base Excess ABG Hemoglobin Oxyhemoglobin Sodium 134 L Potassium Chloride 90.2 L Carbon Dioxide BUN 82 H Creatinine 4.1 H Glucose 195 H POC Glucose 201 H 197 H Calcium Phosphorus Magnesium ALT Alkaline Phosphatase Total Creatine Kinase CK-MB (CK-2) Rel Index Troponin T Albumin LDL Cholesterol Direct PTH Intact Salicylates Acetaminophen Crossmatch 05/11/19 05/11/19 05/11/19 00:20 06:30 17:38 WBC RBC Hgb Hct MCV MCH MCHC RDW Plt Count Lymph % (Auto) [place] % (Auto) Eos % (Auto) Baso % (Auto) Lymph # [place] # Eos # Baso # Seg Neutrophils % Seg Neuts % (Manual) Lymphocytes % (Manual) Eosinophils % (Manual) Seg Neutrophils # Lymphocytes # (Manual) Eosinophils # (Manual) PT INR D-Dimer POC ABG pH POC ABG pCO2 POC ABG pO2 ABG pO2 ABG HCO3 ABG Base Excess ABG Hemoglobin Oxyhemoglobin Sodium Potassium Chloride Carbon Dioxide BUN Creatinine Glucose POC Glucose 131 H 148 H 198 H Calcium Phosphorus Magnesium ALT Alkaline Phosphatase Total Creatine Kinase CK-MB (CK-2) Rel Index Troponin T Albumin LDL Cholesterol Direct PTH Intact Salicylates Acetaminophen Crossmatch 05/12/19 05/12/19 05/12/19 00:44 06:13 07:15 WBC RBC 3.32 L Hgb 8.7 L Hct 27.8 L MCV MCH 26 L MCHC 31 L RDW 19.8 H Plt Count Lymph % (Auto) 6.9 L [place] % (Auto) Eos % (Auto) 6.5 H Baso % (Auto) Lymph # 0.7 L [place] # Eos # 0.6 H Baso # Seg Neutrophils % 78.6 H Seg Neuts % (Manual) Lymphocytes % (Manual) Eosinophils % (Manual) Seg Neutrophils # 7.8 H Lymphocytes # (Manual) Eosinophils # (Manual) PT INR D-Dimer POC ABG pH POC ABG pCO2 POC ABG pO2 ABG pO2 ABG HCO3 ABG Base Excess ABG Hemoglobin Oxyhemoglobin Sodium Potassium Chloride Carbon Dioxide BUN Creatinine Glucose POC Glucose 170 H 133 H Calcium Phosphorus Magnesium ALT Alkaline Phosphatase Total Creatine Kinase CK-MB (CK-2) Rel Index Troponin T Albumin LDL Cholesterol Direct PTH Intact Salicylates Acetaminophen Crossmatch 05/12/19 05/12/19 05/12/19 07:15 11:17 17:37 WBC RBC Hgb Hct MCV MCH MCHC RDW Plt Count Lymph % (Auto) [place] % (Auto) Eos % (Auto) Baso % (Auto) Lymph # [place] # Eos # Baso # Seg Neutrophils % Seg Neuts % (Manual) Lymphocytes % (Manual) Eosinophils % (Manual) Seg Neutrophils # Lymphocytes # (Manual) Eosinophils # (Manual) PT INR D-Dimer POC ABG pH POC ABG pCO2 POC ABG pO2 ABG pO2 ABG HCO3 ABG Base Excess ABG Hemoglobin Oxyhemoglobin Sodium 135 L Potassium Chloride 94.2 L Carbon Dioxide BUN 59 H Creatinine 3.4 H Glucose 134 H POC Glucose 132 H 165 H Calcium Phosphorus Magnesium ALT Alkaline Phosphatase Total Creatine Kinase CK-MB (CK-2) Rel Index Troponin T Albumin LDL Cholesterol Direct PTH Intact Salicylates Acetaminophen Crossmatch 05/13/19 05/13/19 05/13/19 00:15 05:44 16:00 WBC RBC Hgb Hct MCV MCH MCHC RDW Plt Count Lymph % (Auto) [place] % (Auto) Eos % (Auto) Baso % (Auto) Lymph # [place] # Eos # Baso # Seg Neutrophils % Seg Neuts % (Manual) Lymphocytes % (Manual) Eosinophils % (Manual) Seg Neutrophils # Lymphocytes # (Manual) Eosinophils # (Manual) PT INR D-Dimer POC ABG pH POC ABG pCO2 POC ABG pO2 ABG pO2 ABG HCO3 ABG Base Excess ABG Hemoglobin Oxyhemoglobin Sodium Potassium Chloride Carbon Dioxide BUN Creatinine Glucose POC Glucose 144 H 133 H 221 H Calcium Phosphorus Magnesium ALT Alkaline Phosphatase Total Creatine Kinase CK-MB (CK-2) Rel Index Troponin T Albumin LDL Cholesterol Direct PTH Intact Salicylates Acetaminophen Crossmatch 05/14/19 05/14/19 05/14/19 06:44 11:56 16:42 WBC RBC Hgb Hct MCV MCH MCHC RDW Plt Count Lymph % (Auto) [place] % (Auto) Eos % (Auto) Baso % (Auto) Lymph # [place] # Eos # Baso # Seg Neutrophils % Seg Neuts % (Manual) Lymphocytes % (Manual) Eosinophils % (Manual) Seg Neutrophils # Lymphocytes # (Manual) Eosinophils # (Manual) PT INR D-Dimer POC ABG pH POC ABG pCO2 POC ABG pO2 ABG pO2 ABG HCO3 ABG Base Excess ABG Hemoglobin Oxyhemoglobin Sodium Potassium Chloride Carbon Dioxide BUN Creatinine Glucose POC Glucose 187 H 141 H 183 H Calcium Phosphorus Magnesium ALT Alkaline Phosphatase Total Creatine Kinase CK-MB (CK-2) Rel Index Troponin T Albumin LDL Cholesterol Direct PTH Intact Salicylates Acetaminophen Crossmatch 05/15/19 05/15/19 05/15/19 00:11 05:55 18:46 WBC RBC Hgb Hct MCV MCH MCHC RDW Plt Count Lymph % (Auto) [place] % (Auto) Eos % (Auto) Baso % (Auto) Lymph # [place] # Eos # Baso # Seg Neutrophils % Seg Neuts % (Manual) Lymphocytes % (Manual) Eosinophils % (Manual) Seg Neutrophils # Lymphocytes # (Manual) Eosinophils # (Manual) PT INR D-Dimer POC ABG pH POC ABG pCO2 POC ABG pO2 ABG pO2 ABG HCO3 ABG Base Excess ABG Hemoglobin Oxyhemoglobin Sodium Potassium Chloride Carbon Dioxide BUN Creatinine Glucose POC Glucose 169 H 119 H 173 H Calcium Phosphorus Magnesium ALT Alkaline Phosphatase Total Creatine Kinase CK-MB (CK-2) Rel Index Troponin T Albumin LDL Cholesterol Direct PTH Intact Salicylates Acetaminophen Crossmatch 05/16/19 05/16/19 05/16/19 00:18 06:17 12:47 WBC RBC Hgb Hct MCV MCH MCHC RDW Plt Count Lymph % (Auto) [place] % (Auto) Eos % (Auto) Baso % (Auto) Lymph # [place] # Eos # Baso # Seg Neutrophils % Seg Neuts % (Manual) Lymphocytes % (Manual) Eosinophils % (Manual) Seg Neutrophils # Lymphocytes # (Manual) Eosinophils # (Manual) PT INR D-Dimer POC ABG pH POC ABG pCO2 POC ABG pO2 ABG pO2 ABG HCO3 ABG Base Excess ABG Hemoglobin Oxyhemoglobin Sodium Potassium Chloride Carbon Dioxide BUN Creatinine Glucose POC Glucose 201 H 149 H 207 H Calcium Phosphorus Magnesium ALT Alkaline Phosphatase Total Creatine Kinase CK-MB (CK-2) Rel Index Troponin T Albumin LDL Cholesterol Direct PTH Intact Salicylates Acetaminophen Crossmatch 05/16/19 05/17/19 05/17/19 17:48 00:01 06:26 WBC RBC Hgb Hct MCV MCH MCHC RDW Plt Count Lymph % (Auto) [place] % (Auto) Eos % (Auto) Baso % (Auto) Lymph # [place] # Eos # Baso # Seg Neutrophils % Seg Neuts % (Manual) Lymphocytes % (Manual) Eosinophils % (Manual) Seg Neutrophils # Lymphocytes # (Manual) Eosinophils # (Manual) PT INR D-Dimer POC ABG pH POC ABG pCO2 POC ABG pO2 ABG pO2 ABG HCO3 ABG Base Excess ABG Hemoglobin Oxyhemoglobin Sodium Potassium Chloride Carbon Dioxide BUN Creatinine Glucose POC Glucose 183 H 176 H 177 H Calcium Phosphorus Magnesium ALT Alkaline Phosphatase Total Creatine Kinase CK-MB (CK-2) Rel Index Troponin T Albumin LDL Cholesterol Direct PTH Intact Salicylates Acetaminophen Crossmatch 05/17/19 12:19 WBC RBC Hgb Hct MCV MCH MCHC RDW Plt Count Lymph % (Auto) [place] % (Auto) Eos % (Auto) Baso % (Auto) Lymph # [place] # Eos # Baso # Seg Neutrophils % Seg Neuts % (Manual) Lymphocytes % (Manual) Eosinophils % (Manual) Seg Neutrophils # Lymphocytes # (Manual) Eosinophils # (Manual) PT INR D-Dimer POC ABG pH POC ABG pCO2 POC ABG pO2 ABG pO2 ABG HCO3 ABG Base Excess ABG Hemoglobin Oxyhemoglobin Sodium Potassium Chloride Carbon Dioxide BUN Creatinine Glucose POC Glucose 174 H Calcium Phosphorus Magnesium ALT Alkaline Phosphatase Total Creatine Kinase CK-MB (CK-2) Rel Index Troponin T Albumin LDL Cholesterol Direct PTH Intact Salicylates Acetaminophen Crossmatch
[2019-05-18] MEDS: INSULIN REGULAR, HUMAN 100 UNITS/1 ML SUB-Q SCH ×4 (00:30→17:30)
[2019-05-18] MEDS: IPRATROPIUM/ALBUTEROL SULFATE 3 ML AMPUL.NEB IH SCH ×3 (07:59→21:05)
--- NOTE | 2019-05-18 08:29 | Progress Note ---
Assessment and Plan Assessment and plan: Patient is a 63-year-old -[place] man from [facility] with a plethora of co-morbidities including blindness, CVA, CHF, PPM/ICD, loop recorder since 2012 that is MRI compatible, IDDM type 2, sepsis left foot ulcer, afib, ESRD with complications on HD TTS, hypertension, AOCD and GERD who presented to the ED with hypotensive after intubation in the emergency room. Still intubated, diagnosed with fluid overload, pleural effusion. Patient has had recurrent admission in the hospital for similar reason and was recently discharged from the hospital following treatment of Severe Sepsis due to Necrotizing Unstagable sacral decubitus ulcer with ostemomylitis, expected to complete abx on discharg e till 02/16/19. Trach and peg done HR control improved with change in BB. Acute respiratory failure on mechanical ventilator >96 hrs Trach placed on 03/03/19 Pulm consult appreciated weaning trial VAP BUNDLE ASPIRATION BUNDLE Continue T-piece Finished therapy for Acinetobacter Acute pulmonary edema, fluid overload on CXR repeat xray intermittently Dialysis Necrotizing Unstagable sacral decubitus ulcer with ostemomyelitis Wound care, Dilated CMP Cardiomyiopathy EF 35-40% Continue diuresis PPM/ICD Acute encephalopathy, probably metabolic or toxic Continues on Mechanical ventilator. ESRD on hemodialysis nephrology following Vascular eval. done re: LUE AV graft, see note Bilateral pleural effusions Anticipate improvement with Permanent atrial fibrillation and flutter Not on anticoagulation because of anemia thrombocytopenia Change noted to BB agent to IV. 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 -Pt is s/p x1 DDVAP RUL atelectasis, nebs as needed DVT prophylaxis Lovenox DNR poor prognosis Disposition: Awaiting on HD setup History Interval history: Patient was seen and examined. Follow-up on current diagnosis. No overnight events reported to me. Patient is mainly nonverbal. Imaging, nursing note, chart, labs and old chart reviewed. Hospitalist Physical - Physical exam Narrative exam: Gen: severely disable, nad, awake alert x 1 HEENT: NCAT, EOMI, PERRL, OP Clear Neck: supple, trach CVS/Heart: irreg irregular, normal S1S2, pulses present bilaterally Chest/Lungs: diminished bs ymmetrical chest expansion, good air entry bilaterally GI/Abdomen:peg, colostomy present, good bowel sounds, no guarding or rebound /Bladder: no suprapubic tenderness, no CVA or paraspinal tenderness Extermity/Skin: no c/c/e, no obvious rash MSK: no FROM x 4 Neuro: CN 2-12 grossly intact except vision, no new focal deficits Psych: calm - Constitutional Vitals: Temp Pulse Resp BP Pulse Ox 99.3 F 112 H 20 109/65 100 05/18/19 03:31 05/18/19 03:31 05/18/19 03:31 05/18/19 03:31 05/18/19 03:31 General appearance: Present: no acute distress, other (T peace). Absent: well- nourished Results - Labs CBC & Chem 7: 05/12/19 07:15 05/12/19 07:15 Labs: Laboratory Last Values WBC 9.9 K/mm3 (4.5-11.0) 05/12/19 07:15 RBC 3.32 M/mm3 (3.65-5.03) L 05/12/19 07:15 Hgb 8.7 gm/dl (11.8-15.2) L 05/12/19 07:15 Hct 27.8 % (35.5-45.6) L 05/12/19 07:15 MCV 84 fl (84-94) 05/12/19 07:15 MCH 26 pg (28-32) L 05/12/19 07:15 MCHC 31 % (32-34) L 05/12/19 07:15 RDW 19.8 % (13.2-15.2) H 05/12/19 07:15 Plt Count 325 K/mm3 (140-440) 05/12/19 07:15 Lymph % (Auto) 6.9 % (13.4-35.0) L 05/12/19 07:15 [place] % (Auto) 7.3 % (0.0-7.3) 05/12/19 07:15 Eos % (Auto) 6.5 % (0.0-4.3) H 05/12/19 07:15 Baso % (Auto) 0.7 % (0.0-1.8) 05/12/19 07:15 Lymph # 0.7 K/mm3 (1.2-5.4) L 05/12/19 07:15 [place] # 0.7 K/mm3 (0.0-0.8) 05/12/19 07:15 Eos # 0.6 K/mm3 (0.0-0.4) H 05/12/19 07:15 Baso # 0.1 K/mm3 (0.0-0.1) 05/12/19 07:15 Add Manual Diff Complete 03/21/19 06:30 Total Counted 100 03/21/19 06:30 Seg Neutrophils % 78.6 % (40.0-70.0) H 05/12/19 07:15 Seg Neuts % (Manual) 81.0 % (40.0-70.0) H 03/21/19 06:30 Band Neutrophils % 0 % 03/21/19 06:30 Lymphocytes % (Manual) 8.0 % (13.4-35.0) L 03/21/19 06:30 Reactive Lymphs % (Man) 0 % 03/21/19 06:30 Monocytes % (Manual) 1.0 % (0.0-7.3) 03/21/19 06:30 Eosinophils % (Manual) 8.0 % (0.0-4.3) H 03/21/19 06:30 Basophils % (Manual) 1.0 % (0.0-1.8) 03/21/19 06:30 Metamyelocytes % 1.0 % 03/21/19 06:30 Myelocytes % 0 % 03/21/19 06:30 Promyelocytes % 0 % 03/21/19 06:30 Blast Cells % 0 % 03/21/19 06:30 Nucleated RBC % Not Reportable 03/21/19 06:30 Seg Neutrophils # 7.8 K/mm3 (1.8-7.7) H 05/12/19 07:15 Seg Neutrophils # Man 6.7 K/mm3 (1.8-7.7) 03/21/19 06:30 Band Neutrophils # 0.0 K/mm3 03/21/19 06:30 Lymphocytes # (Manual) 0.7 K/mm3 (1.2-5.4) L 03/21/19 06:30 Abs React Lymphs (Man) 0.0 K/mm3 03/21/19 06:30 Monocytes # (Manual) 0.1 K/mm3 (0.0-0.8) 03/21/19 06:30 Eosinophils # (Manual) 0.7 K/mm3 (0.0-0.4) H 03/21/19 06:30 Basophils # (Manual) 0.1 K/mm3 (0.0-0.1) 03/21/19 06:30 Metamyelocytes # 0.1 K/mm3 03/21/19 06:30 Myelocytes # 0.0 K/mm3 03/21/19 06:30 Promyelocytes # 0.0 K/mm3 03/21/19 06:30 Blast Cells # 0.0 K/mm3 03/21/19 06:30 WBC Morphology Not Reportable 03/21/19 06:30 Hypersegmented Neuts Not Reportable 03/21/19 06:30 Hyposegmented Neuts Not Reportable 03/21/19 06:30 Hypogranular Neuts Not Reportable 03/21/19 06:30 Smudge Cells Not Reportable 03/21/19 06:30 Toxic Granulation Not Reportable 03/21/19 06:30 Toxic Vacuolation Not Reportable 03/21/19 06:30 Dohle Bodies Not Reportable 03/21/19 06:30 Pelger-Huet Anomaly Not Reportable 03/21/19 06:30 Tramaine Rods Not Reportable 03/21/19 06:30 Platelet Estimate Consistent w auto 03/21/19 06:30 Clumped Platelets Not Reportable 03/21/19 06:30 Plt Clumps, EDTA Not Reportable 03/21/19 06:30 Large Platelets Not Reportable 03/21/19 06:30 Giant Platelets Not Reportable 03/21/19 06:30 Platelet Satelliting Not Reportable 03/21/19 06:30 Plt Morphology Comment Not Reportable 03/21/19 06:30 RBC Morphology Not Reportable 03/21/19 06:30 Dimorphic RBCs Not Reportable 03/21/19 06:30 Polychromasia Not Reportable 03/21/19 06:30 Hypochromasia Few 03/21/19 06:30 Poikilocytosis Few 03/21/19 06:30 Anisocytosis Few 03/21/19 06:30 Microcytosis Not Reportable 03/21/19 06:30 Macrocytosis Not Reportable 03/21/19 06:30 Spherocytes Not Reportable 03/21/19 06:30 Pappenheimer Bodies Not Reportable 03/21/19 06:30 Sickle Cells Not Reportable 03/21/19 06:30 Target Cells 1+ 03/21/19 06:30 Tear Drop Cells Not Reportable 03/21/19 06:30 Ovalocytes Few 03/21/19 06:30 Helmet Cells Not Reportable 03/21/19 06:30 [place] Bodies Not Reportable 03/21/19 06:30 [place] Rings Not Reportable 03/21/19 06:30 [place] Cells Not Reportable 03/21/19 06:30 Bite Cells Not Reportable 03/21/19 06:30 Crenated Cell Not Reportable 03/21/19 06:30 Elliptocytes Not Reportable 03/21/19 06:30 Acanthocytes (Spur) Not Reportable 03/21/19 06:30 Rouleaux Not Reportable 03/21/19 06:30 Hemoglobin C Crystals Not Reportable 03/21/19 06:30 Schistocytes Not Reportable 03/21/19 06:30 Malaria parasites Not Reportable 03/21/19 06:30 Jose Juan Bodies Not Reportable 03/21/19 06:30 Hem Pathologist Commnt No 03/21/19 06:30 PT 16.3 Sec. (12.2-14.9) H 03/01/19 09:39 INR 1.35 (0.87-1.13) H 03/01/19 09:39 APTT 33.7 Sec. (24.2-36.6) 02/21/19 18:30 D-Dimer 2987.82 ng/mlDDU (0-234) H 02/22/19 05:54 POC ABG pH 7.510 (7.35-7.45) H 03/18/19 06:38 ABG pH 7.424 pH Units (7.350-7.450) 03/19/19 04:23 POC ABG pCO2 38.9 (35-45) 03/18/19 06:38 ABG pCO2 48.0 mm Hg 03/19/19 04:23 POC ABG pO2 164 (80-105) H 03/18/19 06:38 ABG pO2 78.3 mm Hg (80.0-90.0) L 03/19/19 04:23 POC ABG HCO3 31.0 (22-26 mml/L) 03/18/19 06:38 ABG HCO3 30.7 mmol/L (20.0-26.0) H 03/19/19 04:23 POC ABG Total CO2 32 (23-27mmol/L) 03/18/19 06:38 POC ABG O2 Sat 100 03/18/19 06:38 ABG O2 Saturation 97.0 % (95.0-99.0) 03/19/19 04:23 ABG O2 Content 7.9 (0.0-44) 03/19/19 04:23 POC ABG Base Excess 8 ((-2) - (+3)mmol/L) 03/18/19 06:38 ABG Base Excess 5.8 mmol/L (-2.0-3.0) H 03/19/19 04:23 ABG Hemoglobin 5.8 gm/dl (14.0-18.0) L 03/19/19 04:23 ABG Carboxyhemoglobin 2.0 % (0.0-5.0) 03/19/19 04:23 ABG Methemoglobin 0.4 % (0.0-1.5) 03/19/19 04:23 Oxyhemoglobin 94.6 % (95.0-99.0) L 03/19/19 04:23 FiO2 35 % 03/19/19 04:23 Sodium 135 mmol/L (137-145) L 05/12/19 07:15 Potassium 3.7 mmol/L (3.6-5.0) 05/12/19 07:15 Chloride 94.2 mmol/L (98-107) L 05/12/19 07:15 Carbon Dioxide 26 mmol/L (22-30) 05/12/19 07:15 Anion Gap 19 mmol/L 05/12/19 07:15 BUN 59 mg/dL (9-20) H 05/12/19 07:15 Creatinine 3.4 mg/dL (0.8-1.5) H 05/12/19 07:15 Estimated GFR 22 ml/min 05/12/19 07:15 BUN/Creatinine Ratio 17 % 05/12/19 07:15 Glucose 134 mg/dL (75-100) H 05/12/19 07:15 POC Glucose 165 (70-105) H 05/18/19 06:18 Lactic Acid 1.00 mmol/L (0.7-2.0) 02/21/19 20:58 Calcium 9.5 mg/dL (8.4-10.2) 05/12/19 07:15 Phosphorus 4.30 mg/dL (2.5-4.5) D 03/31/19 10:26 Magnesium 2.70 mg/dL (1.7-2.3) H 03/30/19 10:13 Total Bilirubin 0.20 mg/dL (0.1-1.2) 03/30/19 10:13 AST 16 units/L (5-40) 03/30/19 10:13 ALT 11 units/L (7-56) 03/30/19 10:13 Alkaline Phosphatase 185 units/L (35-129) H 03/30/19 10:13 Ammonia 28.0 umol/L (25-60) 02/21/19 20:04 Total Creatine Kinase 64 units/L (55-170) 02/22/19 03:42 CK-MB (CK-2) 3.7 ng/mL (0.0-4.0) 02/22/19 03:42 CK-MB (CK-2) Rel Index 5.7 (0-4) H 02/22/19 03:42 Troponin T 0.193 ng/mL (0.00-0.029) H* 02/22/19 03:42 Total Protein 6.9 g/dL (6.3-8.2) 03/30/19 10:13 Albumin 2.6 g/dL (3.9-5) L 03/30/19 10:13 Albumin/Globulin Ratio 0.6 % 03/30/19 10:13 Triglycerides 51 mg/dL (2-149) 02/21/19 18:30 Cholesterol 82 mg/dL (50-199) 02/21/19 18:30 LDL Cholesterol Direct 36 mg/dL (50-130) L 02/21/19 18:30 HDL Cholesterol 40 mg/dL (40-59) 02/21/19 18:30 Cholesterol/HDL Ratio 2.05 % 02/21/19 18:30 TSH 2.760 mlU/mL (0.270-4.200) 02/21/19 20:04 PTH Intact 267.6 pg/mL (15-65) H 03/02/19 05:15 Salicylates < 0.3 mg/dL (2.8-20.0) L 02/21/19 20:04 Acetaminophen < 5.0 ug/mL (10.0-30.0) L 02/21/19 20:04 Hepatitis A IgM Ab Non-reactive (NonReactive) 04/30/19 14:11 Hep Bs Antigen Non-reactive (Negative) 04/30/19 14:11 Hep B Core IgM Ab Non-reactive (NonReactive) 04/30/19 14:11 Hepatitis C Antibody Non-reactive (NonReactive) 04/30/19 14:11 Blood Type O POSITIVE 05/04/19 12:55 Antibody Screen Negative 05/04/19 12:55 Crossmatch See Detail 05/04/19 12:55 Active Medications - Current Medications Current Medications: Generic Name Dose Route Start Last Admin Trade Name Freq PRN Reason Stop Dose Admin Albuterol/Ipratropium 1 ampul 02/24/19 20:00 05/18/19 07:59 Duoneb *Not For Prn Use* IH 1 ampul TIDRT SANCHEZ Administration Lipase/Protease/Amylase 1 each 04/10/19 15:16 Pancreaze 10,500 Unit FEEDTUBE PRN PRN For Clogged Feeding Tube Epoetin Solitario 20,000 unit 03/24/19 11:17 05/15/19 12:01 Procrit IV 20,000 unit UMA PRN Administration hemodialysis Famotidine 20 mg 02/23/19 10:00 05/17/19 10:01 Pepcid PO 20 mg DAILY SANCHEZ Administration Sodium Chloride 100 mls @ 999 mls/hr 05/13/19 12:45 Nacl 0.9% IV UMA PRN Hypotension Insulin Human Regular 0 units 02/26/19 12:00 05/18/19 06:32 Humulin R SUB-Q 1 units Q6HR SANCHEZ Administration Protocol Metoprolol Tartrate 2.5 mg 02/28/19 12:06 03/15/19 05:15 Lopressor IV 2.5 mg Q4HR PRN Administration Tachycardia Risperidone 1 mg 02/25/19 13:00 05/17/19 10:01 Risperdal PO 1 mg DAILY SANCHEZ Administration Sertraline HCl 100 mg 02/25/19 13:00 05/17/19 10:01 Zoloft PO 100 mg DAILY SANCHEZ Administration Simple Syrup 15 ml 04/10/19 15:16 Simple Syrup FEEDTUBE PRN PRN Hypoglycemia Simple Syrup 30 ml 04/10/19 15:16 Simple Syrup FEEDTUBE PRN PRN Hypoglycemia Sodium Bicarbonate 325 mg 04/10/19 15:16 Sodium Bicarbonate FEEDTUBE PRN PRN For Clogged Feeding Tube Sodium Hypochlorite 1 applic 04/01/19 13:00 05/17/19 21:27 Dakin's Half Strength TP 1 applicatio BID SANCHEZ Administration Nutrition/Malnutrition Assess - Dietary Evaluation Nutrition/Malnutrition Findings: Nutrition Notes Start: 02/22/19 12:51 Freq: Status: Active Protocol: Document 05/15/19 16:23 RM (Rec: 05/15/19 16:30 RM [id number]) Nutrition Notes Initial or Follow up Reassessment Current Diagnosis Diabetes,Hypertension,Heart Failure Other Pertinent Diagnosis Sacral PU, ESRD on HD (T/Thurs /Sat), Schizophrenia,Blind in L eye,S/P trach Current Diet Nepro at 50 ml/hr w/Abhilash BID Labs/Tests POC 183, 169,119 Pertinent Medications Reviewed Height 5 ft 10 in Weight 75.5 kg [place] Body Weight (kg) 75.45 BMI 23.8 Subjective/Other Information Observed Nepro infusing at goal rate. Per nurse pt is tolerating TF. Nurse also stated that she was unaware of Abhilash order and has not given it to pt today. Maintenance Electrician explained the purpose of Abhilash and that administration instructions are in the diet order. Nurse stated that she will administer Abhilash to pt. Percent of energy/protein needs met: 100%/100% Burn Absent Trauma Absent Minimum of two criteria No #2 Nutrition Diagnosis Increased nutrient needs ( specify in comment below) Diagnosis Progress(for reassessment Continues documentation) #1 Nutrition Diagnosis Inadequate oral intake Diagnosis Progress(for reassessment Continues documentation) Is patient on ventilator? No Is Patient Ambulatory and/or Out of Bed No REE-([facility]-confined to bed) 1866.744 Kcal/Kg value to use for calculation 31 Approximate Energy Requirements Using 2341 kcal/Kg Calculation Used for Recommendations [facility] Additional Notes Protein Needs:90 - 112 g (1.2- 1.5 g/kg) Fluid Needs: 1-1.5 L/day Nutrition Intervention Change Diet Order: Continue TF Nutrition Support: Nepro with Carbsteady 1.8 at 50 ml/hr Flush 200 ml q4hr Kcal 2,160 Protein (gm) 97 Fluid (mL) 872 Add Supplement/Snack (indicate name/kcal Abhilash BID /protein ) Provides kCal: 190 Provides Protein (gm) 5 Goal #1 TF tolerance Goal #2 Continue to meet at least 75% of calorie and protein needs via TF Anticipated Discharge Needs: TF Follow-Up By: 05/19/19 Additional Comments Follow for TF tolerance, receiving Abhilash
[2019-05-18] MEDS: SERTRALINE 100 MG TAB PO SCH (09:03)
[2019-05-18] MEDS: FAMOTIDINE 20 MG TAB PO SCH (09:03)
[2019-05-18] MEDS: risperiDONE 1 MG TAB PO SCH (09:03)
[2019-05-18] MEDS: SODIUM HYPOCHLORITE, DAKIN'S 1/2 STRENGTH (0.25%) 473 ML TOPICAL SOLN TP SCH ×2 (09:04→21:44)
[2019-05-18] MEDS ORDERED: SODIUM CHLORIDE*PRIMING MACHINE ONLY FOR DIALYSIS MC ONE (11:04)
--- NOTE | 2019-05-18 12:24 | Progress Note ---
Assessment and Plan 63 y/o male with multiple medical issues admitted with altered mental status, acute respiratory failure requiring mechanical ventilation 1. Continue capping trials. Nasal cannula therapy. 2. HD per renal 3. PT/OT if possible 4. CM working on placement 5. No objection to discharge once placement is found Subjective Date of service: 05/18/19 Principal diagnosis: Respiratory failure, acute on chronic systolic HF, ESRD Interval history: No acute events overnight. Stable Objective Vital Signs - 12hr 05/18/19 05/18/19 05/18/19 01:32 03:31 07:50 Temperature 99.3 F Pulse Rate 112 H Pulse Rate [ 113 H Anterior Bilateral Throughout] Respiratory 20 Rate Respiratory 17 Rate [Anterior Bilateral Throughout] Blood Pressure 109/65 O2 Sat by Pulse 100 Oximetry O2 Sat by Pulse 99 Oximetry [ Assessment] 05/18/19 05/18/19 05/18/19 09:15 09:30 09:45 Temperature 99.8 F H Pulse Rate 110 H 110 H 113 H Pulse Rate [ Anterior Bilateral Throughout] Respiratory 16 Rate Respiratory Rate [Anterior Bilateral Throughout] Blood Pressure 111/66 119/66 111/67 O2 Sat by Pulse Oximetry O2 Sat by Pulse Oximetry [ Assessment] 05/18/19 05/18/19 05/18/19 10:00 10:15 10:30 Temperature Pulse Rate 117 H 119 H 118 H Pulse Rate [ Anterior Bilateral Throughout] Respiratory Rate Respiratory Rate [Anterior Bilateral Throughout] Blood Pressure 117/67 109/58 86/57 O2 Sat by Pulse 99 Oximetry O2 Sat by Pulse Oximetry [ Assessment] 05/18/19 05/18/19 05/18/19 10:31 10:45 10:56 Temperature Pulse Rate 115 H 117 H Pulse Rate [ Anterior Bilateral Throughout] Respiratory Rate Respiratory Rate [Anterior Bilateral Throughout] Blood Pressure 89/59 84/60 O2 Sat by Pulse Oximetry O2 Sat by Pulse 98 Oximetry [ Assessment] 05/18/19 05/18/19 05/18/19 11:15 11:30 11:45 Temperature Pulse Rate 114 H 115 H 114 H Pulse Rate [ Anterior Bilateral Throughout] Respiratory Rate Respiratory Rate [Anterior Bilateral Throughout] Blood Pressure 91/60 87/56 88/59 O2 Sat by Pulse Oximetry O2 Sat by Pulse Oximetry [ Assessment] 05/18/19 05/18/19 12:00 12:15 Temperature Pulse Rate 114 H 113 H Pulse Rate [ Anterior Bilateral Throughout] Respiratory Rate Respiratory Rate [Anterior Bilateral Throughout] Blood Pressure 91/61 90/65 O2 Sat by Pulse Oximetry O2 Sat by Pulse Oximetry [ Assessment] Constitutional: no acute distress, alert Eyes: non-icteric ENT: oropharynx moist Neck: supple Effort: normal Ascultation: Bilateral: diminished breath sounds, other (coarse BS bilaterally) Percussion: Bilateral: not dull Cardiovascular: regular rate and rhythm (no mrg) Gastrointestinal: normoactive bowel sounds, soft, non-tender, non-distended, other (ostomy in place, brown stool) Extremities: no cyanosis, no edema, pink and warm Neurologic: other (mild weakness LUE, o/w nonfocal) Psychiatric: other (unable to assess) CBC and BMP: 05/12/19 07:15 05/12/19 07:15 ABG, PT/INR, D-dimer: ABG POC ABG pH 7.510 (7.35-7.45) H 03/18/19 06:38 ABG pH 7.424 pH Units (7.350-7.450) 03/19/19 04:23 POC ABG pCO2 38.9 (35-45) 03/18/19 06:38 ABG pCO2 48.0 mm Hg 03/19/19 04:23 POC ABG pO2 164 (80-105) H 03/18/19 06:38 ABG pO2 78.3 mm Hg (80.0-90.0) L 03/19/19 04:23 POC ABG HCO3 31.0 (22-26 mml/L) 03/18/19 06:38 POC ABG Total CO2 32 (23-27mmol/L) 03/18/19 06:38 POC ABG O2 Sat 100 03/18/19 06:38 ABG O2 Saturation 97.0 % (95.0-99.0) 03/19/19 04:23 PT/INR, D-dimer PT 16.3 Sec. (12.2-14.9) H 03/01/19 09:39 INR 1.35 (0.87-1.13) H 03/01/19 09:39 D-Dimer 2987.82 ng/mlDDU (0-234) H 02/22/19 05:54 Abnormal lab findings: Abnormal Labs 02/21/19 02/21/19 02/21/19 18:30 18:30 18:30 WBC RBC 3.26 L Hgb 8.8 L Hct 29.0 L MCV MCH 27 L MCHC 30 L RDW 19.1 H Plt Count Lymph % (Auto) 6.1 L [place] % (Auto) Eos % (Auto) Baso % (Auto) Lymph # 0.4 L [place] # Eos # Baso # Seg Neutrophils % 86.2 H Seg Neuts % (Manual) Lymphocytes % (Manual) Eosinophils % (Manual) Seg Neutrophils # Lymphocytes # (Manual) Eosinophils # (Manual) PT INR D-Dimer POC ABG pH POC ABG pCO2 POC ABG pO2 ABG pO2 ABG HCO3 ABG Base Excess ABG Hemoglobin Oxyhemoglobin Sodium 133 L Potassium 3.3 L Chloride 93.1 L Carbon Dioxide 33 H BUN Creatinine Glucose 161 H POC Glucose Calcium Phosphorus Magnesium ALT Alkaline Phosphatase 136 H Total Creatine Kinase 37 L CK-MB (CK-2) Rel Index Troponin T 0.192 H* Albumin 2.4 L LDL Cholesterol Direct 36 L PTH Intact Salicylates Acetaminophen Crossmatch 02/21/19 02/21/19 02/21/19 18:42 20:04 20:04 WBC RBC Hgb Hct MCV MCH MCHC RDW Plt Count Lymph % (Auto) [place] % (Auto) Eos % (Auto) Baso % (Auto) Lymph # [place] # Eos # Baso # Seg Neutrophils % Seg Neuts % (Manual) Lymphocytes % (Manual) Eosinophils % (Manual) Seg Neutrophils # Lymphocytes # (Manual) Eosinophils # (Manual) PT INR D-Dimer POC ABG pH POC ABG pCO2 56.7 H POC ABG pO2 291 H ABG pO2 ABG HCO3 ABG Base Excess ABG Hemoglobin Oxyhemoglobin Sodium Potassium Chloride Carbon Dioxide BUN Creatinine Glucose POC Glucose Calcium Phosphorus Magnesium ALT Alkaline Phosphatase Total Creatine Kinase CK-MB (CK-2) Rel Index Troponin T Albumin LDL Cholesterol Direct PTH Intact Salicylates < 0.3 L Acetaminophen < 5.0 L Crossmatch 02/21/19 02/22/19 02/22/19 22:35 03:42 03:42 WBC RBC 3.20 L Hgb 8.8 L Hct 27.6 L MCV MCH MCHC RDW 18.9 H Plt Count Lymph % (Auto) 7.4 L [place] % (Auto) Eos % (Auto) Baso % (Auto) Lymph # 0.7 L [place] # Eos # Baso # Seg Neutrophils % 84.7 H Seg Neuts % (Manual) Lymphocytes % (Manual) Eosinophils % (Manual) Seg Neutrophils # Lymphocytes # (Manual) Eosinophils # (Manual) PT INR D-Dimer POC ABG pH POC ABG pCO2 POC ABG pO2 ABG pO2 ABG HCO3 ABG Base Excess ABG Hemoglobin Oxyhemoglobin Sodium 134 L Potassium 2.6 L* D Chloride Carbon Dioxide BUN Creatinine Glucose POC Glucose Calcium Phosphorus Magnesium ALT Alkaline Phosphatase Total Creatine Kinase CK-MB (CK-2) Rel Index 5.2 H Troponin T 0.202 H* Albumin LDL Cholesterol Direct PTH Intact Salicylates Acetaminophen Crossmatch 02/22/19 02/22/19 02/22/19 03:42 05:54 09:04 WBC RBC Hgb Hct MCV MCH MCHC RDW Plt Count Lymph % (Auto) [place] % (Auto) Eos % (Auto) Baso % (Auto) Lymph # [place] # Eos # Baso # Seg Neutrophils % Seg Neuts % (Manual) Lymphocytes % (Manual) Eosinophils % (Manual) Seg Neutrophils # Lymphocytes # (Manual) Eosinophils # (Manual) PT INR D-Dimer 2987.82 H POC ABG pH 7.451 H POC ABG pCO2 POC ABG pO2 ABG pO2 ABG HCO3 ABG Base Excess ABG Hemoglobin Oxyhemoglobin Sodium Potassium Chloride Carbon Dioxide BUN Creatinine Glucose POC Glucose Calcium Phosphorus Magnesium ALT Alkaline Phosphatase Total Creatine Kinase CK-MB (CK-2) Rel Index 5.7 H Troponin T 0.193 H* Albumin LDL Cholesterol Direct PTH Intact Salicylates Acetaminophen Crossmatch 02/22/19 02/22/19 02/23/19 10:36 23:56 00:52 WBC RBC Hgb Hct MCV MCH MCHC RDW Plt Count Lymph % (Auto) [place] % (Auto) Eos % (Auto) Baso % (Auto) Lymph # [place] # Eos # Baso # Seg Neutrophils % Seg Neuts % (Manual) Lymphocytes % (Manual) Eosinophils % (Manual) Seg Neutrophils # Lymphocytes # (Manual) Eosinophils # (Manual) PT INR D-Dimer POC ABG pH POC ABG pCO2 POC ABG pO2 ABG pO2 ABG HCO3 ABG Base Excess ABG Hemoglobin Oxyhemoglobin Sodium Potassium 3.1 L Chloride Carbon Dioxide BUN Creatinine Glucose POC Glucose 58 L 111 H Calcium Phosphorus Magnesium ALT Alkaline Phosphatase Total Creatine Kinase CK-MB (CK-2) Rel Index Troponin T Albumin LDL Cholesterol Direct PTH Intact Salicylates Acetaminophen Crossmatch 02/23/19 02/23/19 02/23/19 05:00 06:35 14:26 WBC RBC Hgb Hct MCV MCH MCHC RDW Plt Count Lymph % (Auto) [place] % (Auto) Eos % (Auto) Baso % (Auto) Lymph # [place] # Eos # Baso # Seg Neutrophils % Seg Neuts % (Manual) Lymphocytes % (Manual) Eosinophils % (Manual) Seg Neutrophils # Lymphocytes # (Manual) Eosinophils # (Manual) PT INR D-Dimer POC ABG pH POC ABG pCO2 POC ABG pO2 ABG pO2 ABG HCO3 ABG Base Excess ABG Hemoglobin Oxyhemoglobin Sodium 135 L Potassium 3.1 L Chloride Carbon Dioxide BUN 21 H Creatinine 2.0 H Glucose 57 L POC Glucose 64 L 62 L Calcium Phosphorus Magnesium ALT Alkaline Phosphatase Total Creatine Kinase CK-MB (CK-2) Rel Index Troponin T Albumin LDL Cholesterol Direct PTH Intact Salicylates Acetaminophen Crossmatch 02/24/19 02/24/19 02/24/19 02:11 04:12 04:55 WBC RBC 2.84 L Hgb 7.8 L Hct 24.5 L MCV MCH MCHC RDW 19.5 H Plt Count Lymph % (Auto) [place] % (Auto) Eos % (Auto) Baso % (Auto) Lymph # [place] # Eos # Baso # Seg Neutrophils % Seg Neuts % (Manual) Lymphocytes % (Manual) Eosinophils % (Manual) Seg Neutrophils # Lymphocytes # (Manual) Eosinophils # (Manual) PT INR D-Dimer POC ABG pH 7.511 H POC ABG pCO2 33.9 L POC ABG pO2 62 L ABG pO2 ABG HCO3 ABG Base Excess ABG Hemoglobin Oxyhemoglobin Sodium Potassium Chloride Carbon Dioxide BUN Creatinine Glucose POC Glucose 69 L Calcium Phosphorus Magnesium ALT Alkaline Phosphatase Total Creatine Kinase CK-MB (CK-2) Rel Index Troponin T Albumin LDL Cholesterol Direct PTH Intact Salicylates Acetaminophen Crossmatch 02/24/19 02/24/19 02/25/19 04:55 05:41 04:45 WBC RBC Hgb Hct MCV MCH MCHC RDW Plt Count Lymph % (Auto) [place] % (Auto) Eos % (Auto) Baso % (Auto) Lymph # [place] # Eos # Baso # Seg Neutrophils % Seg Neuts % (Manual) Lymphocytes % (Manual) Eosinophils % (Manual) Seg Neutrophils # Lymphocytes # (Manual) Eosinophils # (Manual) PT INR D-Dimer POC ABG pH 7.466 H POC ABG pCO2 POC ABG pO2 75 L ABG pO2 ABG HCO3 ABG Base Excess ABG Hemoglobin Oxyhemoglobin Sodium Potassium Chloride Carbon Dioxide BUN Creatinine 1.8 H Glucose 73 L POC Glucose 127 H Calcium Phosphorus Magnesium ALT Alkaline Phosphatase Total Creatine Kinase CK-MB (CK-2) Rel Index Troponin T Albumin LDL Cholesterol Direct PTH Intact Salicylates Acetaminophen Crossmatch 02/25/19 02/25/19 02/26/19 16:34 21:33 03:45 WBC RBC 2.96 L Hgb 8.0 L Hct 25.8 L MCV MCH 27 L MCHC 31 L RDW 20.0 H Plt Count Lymph % (Auto) [place] % (Auto) Eos % (Auto) Baso % (Auto) Lymph # [place] # Eos # Baso # Seg Neutrophils % Seg Neuts % (Manual) Lymphocytes % (Manual) Eosinophils % (Manual) Seg Neutrophils # Lymphocytes # (Manual) Eosinophils # (Manual) PT INR D-Dimer POC ABG pH POC ABG pCO2 POC ABG pO2 ABG pO2 ABG HCO3 ABG Base Excess ABG Hemoglobin Oxyhemoglobin Sodium Potassium Chloride Carbon Dioxide BUN Creatinine Glucose POC Glucose 141 H 106 H Calcium Phosphorus Magnesium ALT Alkaline Phosphatase Total Creatine Kinase CK-MB (CK-2) Rel Index Troponin T Albumin LDL Cholesterol Direct PTH Intact Salicylates Acetaminophen Crossmatch 02/26/19 02/26/19 02/26/19 03:45 04:13 07:53 WBC RBC Hgb Hct MCV MCH MCHC RDW Plt Count Lymph % (Auto) [place] % (Auto) Eos % (Auto) Baso % (Auto) Lymph # [place] # Eos # Baso # Seg Neutrophils % Seg Neuts % (Manual) Lymphocytes % (Manual) Eosinophils % (Manual) Seg Neutrophils # Lymphocytes # (Manual) Eosinophils # (Manual) PT INR D-Dimer POC ABG pH 7.470 H POC ABG pCO2 POC ABG pO2 ABG pO2 ABG HCO3 ABG Base Excess ABG Hemoglobin Oxyhemoglobin Sodium Potassium Chloride Carbon Dioxide BUN Creatinine 1.8 H Glucose POC Glucose 110 H Calcium Phosphorus Magnesium ALT Alkaline Phosphatase Total Creatine Kinase CK-MB (CK-2) Rel Index Troponin T Albumin LDL Cholesterol Direct PTH Intact Salicylates Acetaminophen Crossmatch 02/26/19 02/26/19 02/27/19 11:56 17:43 00:12 WBC RBC Hgb Hct MCV MCH MCHC RDW Plt Count Lymph % (Auto) [place] % (Auto) Eos % (Auto) Baso % (Auto) Lymph # [place] # Eos # Baso # Seg Neutrophils % Seg Neuts % (Manual) Lymphocytes % (Manual) Eosinophils % (Manual) Seg Neutrophils # Lymphocytes # (Manual) Eosinophils # (Manual) PT INR D-Dimer POC ABG pH POC ABG pCO2 POC ABG pO2 ABG pO2 ABG HCO3 ABG Base Excess ABG Hemoglobin Oxyhemoglobin Sodium Potassium Chloride Carbon Dioxide BUN Creatinine Glucose POC Glucose 112 H 127 H 127 H Calcium Phosphorus Magnesium ALT Alkaline Phosphatase Total Creatine Kinase CK-MB (CK-2) Rel Index Troponin T Albumin LDL Cholesterol Direct PTH Intact Salicylates Acetaminophen Crossmatch 02/27/19 02/27/19 02/27/19 04:35 13:15 18:02 WBC RBC Hgb Hct MCV MCH MCHC RDW Plt Count Lymph % (Auto) [place] % (Auto) Eos % (Auto) Baso % (Auto) Lymph # [place] # Eos # Baso # Seg Neutrophils % Seg Neuts % (Manual) Lymphocytes % (Manual) Eosinophils % (Manual) Seg Neutrophils # Lymphocytes # (Manual) Eosinophils # (Manual) PT INR D-Dimer POC ABG pH 7.483 H POC ABG pCO2 POC ABG pO2 61 L ABG pO2 ABG HCO3 ABG Base Excess ABG Hemoglobin Oxyhemoglobin Sodium Potassium Chloride Carbon Dioxide BUN Creatinine Glucose POC Glucose 143 H 106 H Calcium Phosphorus Magnesium ALT Alkaline Phosphatase Total Creatine Kinase CK-MB (CK-2) Rel Index Troponin T Albumin LDL Cholesterol Direct PTH Intact Salicylates Acetaminophen Crossmatch 02/28/19 02/28/19 02/28/19 05:50 11:59 17:52 WBC RBC Hgb Hct MCV MCH MCHC RDW Plt Count Lymph % (Auto) [place] % (Auto) Eos % (Auto) Baso % (Auto) Lymph # [place] # Eos # Baso # Seg Neutrophils % Seg Neuts % (Manual) Lymphocytes % (Manual) Eosinophils % (Manual) Seg Neutrophils # Lymphocytes # (Manual) Eosinophils # (Manual) PT INR D-Dimer POC ABG pH POC ABG pCO2 POC ABG pO2 ABG pO2 ABG HCO3 ABG Base Excess ABG Hemoglobin Oxyhemoglobin Sodium Potassium Chloride Carbon Dioxide BUN Creatinine Glucose POC Glucose 134 H 128 H 142 H Calcium Phosphorus Magnesium ALT Alkaline Phosphatase Total Creatine Kinase CK-MB (CK-2) Rel Index Troponin T Albumin LDL Cholesterol Direct PTH Intact Salicylates Acetaminophen Crossmatch 02/28/19 03/01/19 03/01/19 23:13 05:40 09:39 WBC RBC Hgb Hct MCV MCH MCHC RDW Plt Count Lymph % (Auto) [place] % (Auto) Eos % (Auto) Baso % (Auto) Lymph # [place] # Eos # Baso # Seg Neutrophils % Seg Neuts % (Manual) Lymphocytes % (Manual) Eosinophils % (Manual) Seg Neutrophils # Lymphocytes # (Manual) Eosinophils # (Manual) PT 16.3 H INR 1.35 H D-Dimer POC ABG pH POC ABG pCO2 POC ABG pO2 ABG pO2 ABG HCO3 ABG Base Excess ABG Hemoglobin Oxyhemoglobin Sodium Potassium Chloride Carbon Dioxide BUN Creatinine Glucose POC Glucose 112 H 111 H Calcium Phosphorus Magnesium ALT Alkaline Phosphatase Total Creatine Kinase CK-MB (CK-2) Rel Index Troponin T Albumin LDL Cholesterol Direct PTH Intact Salicylates Acetaminophen Crossmatch 03/01/19 03/01/19 03/01/19 11:56 13:54 17:59 WBC RBC Hgb Hct MCV MCH MCHC RDW Plt Count Lymph % (Auto) [place] % (Auto) Eos % (Auto) Baso % (Auto) Lymph # [place] # Eos # Baso # Seg Neutrophils % Seg Neuts % (Manual) Lymphocytes % (Manual) Eosinophils % (Manual) Seg Neutrophils # Lymphocytes # (Manual) Eosinophils # (Manual) PT INR D-Dimer POC ABG pH POC ABG pCO2 POC ABG pO2 ABG pO2 ABG HCO3 ABG Base Excess ABG Hemoglobin Oxyhemoglobin Sodium Potassium Chloride Carbon Dioxide BUN 33 H Creatinine 2.8 H D Glucose 176 H POC Glucose 199 H 147 H Calcium Phosphorus Magnesium ALT Alkaline Phosphatase Total Creatine Kinase CK-MB (CK-2) Rel Index Troponin T Albumin LDL Cholesterol Direct PTH Intact Salicylates Acetaminophen Crossmatch 03/02/19 03/02/19 03/02/19 05:15 05:15 05:15 WBC RBC 2.73 L Hgb 7.4 L Hct 23.0 L MCV MCH 27 L MCHC RDW 19.9 H Plt Count Lymph % (Auto) [place] % (Auto) 7.9 H Eos % (Auto) 7.6 H Baso % (Auto) Lymph # 1.0 L [place] # Eos # 0.5 H Baso # Seg Neutrophils % Seg Neuts % (Manual) Lymphocytes % (Manual) Eosinophils % (Manual) Seg Neutrophils # Lymphocytes # (Manual) Eosinophils # (Manual) PT INR D-Dimer POC ABG pH POC ABG pCO2 POC ABG pO2 ABG pO2 ABG HCO3 ABG Base Excess ABG Hemoglobin Oxyhemoglobin Sodium Potassium Chloride Carbon Dioxide BUN 43 H Creatinine 3.2 H Glucose POC Glucose Calcium Phosphorus 2.30 L Magnesium ALT Alkaline Phosphatase Total Creatine Kinase CK-MB (CK-2) Rel Index Troponin T Albumin LDL Cholesterol Direct PTH Intact 267.6 H Salicylates Acetaminophen Crossmatch 03/02/19 03/02/19 03/03/19 12:32 18:20 13:30 WBC RBC Hgb Hct MCV MCH MCHC RDW Plt Count Lymph % (Auto) [place] % (Auto) Eos % (Auto) Baso % (Auto) Lymph # [place] # Eos # Baso # Seg Neutrophils % Seg Neuts % (Manual) Lymphocytes % (Manual) Eosinophils % (Manual) Seg Neutrophils # Lymphocytes # (Manual) Eosinophils # (Manual) PT INR D-Dimer POC ABG pH POC ABG pCO2 POC ABG pO2 ABG pO2 ABG HCO3 ABG Base Excess ABG Hemoglobin Oxyhemoglobin Sodium Potassium Chloride 97.3 L Carbon Dioxide BUN 26 H Creatinine 2.2 H Glucose 73 L POC Glucose 111 H 156 H Calcium Phosphorus Magnesium ALT Alkaline Phosphatase Total Creatine Kinase CK-MB (CK-2) Rel Index Troponin T Albumin LDL Cholesterol Direct PTH Intact Salicylates Acetaminophen Crossmatch 03/04/19 03/04/19 03/04/19 00:02 05:37 05:40 WBC RBC 2.63 L Hgb 7.2 L Hct 22.2 L MCV MCH MCHC RDW 20.2 H Plt Count Lymph % (Auto) 10.5 L [place] % (Auto) Eos % (Auto) 4.6 H Baso % (Auto) Lymph # 0.7 L [place] # Eos # Baso # Seg Neutrophils % 76.9 H Seg Neuts % (Manual) Lymphocytes % (Manual) Eosinophils % (Manual) Seg Neutrophils # Lymphocytes # (Manual) Eosinophils # (Manual) PT INR D-Dimer POC ABG pH POC ABG pCO2 POC ABG pO2 ABG pO2 ABG HCO3 ABG Base Excess ABG Hemoglobin Oxyhemoglobin Sodium Potassium Chloride Carbon Dioxide BUN Creatinine Glucose POC Glucose 136 H 123 H Calcium Phosphorus Magnesium ALT Alkaline Phosphatase Total Creatine Kinase CK-MB (CK-2) Rel Index Troponin T Albumin LDL Cholesterol Direct PTH Intact Salicylates Acetaminophen Crossmatch 03/04/19 03/04/19 03/04/19 05:40 11:39 23:20 WBC RBC Hgb Hct MCV MCH MCHC RDW Plt Count Lymph % (Auto) [place] % (Auto) Eos % (Auto) Baso % (Auto) Lymph # [place] # Eos # Baso # Seg Neutrophils % Seg Neuts % (Manual) Lymphocytes % (Manual) Eosinophils % (Manual) Seg Neutrophils # Lymphocytes # (Manual) Eosinophils # (Manual) PT INR D-Dimer POC ABG pH POC ABG pCO2 POC ABG pO2 ABG pO2 ABG HCO3 ABG Base Excess ABG Hemoglobin Oxyhemoglobin Sodium Potassium Chloride Carbon Dioxide BUN 34 H Creatinine 2.7 H Glucose 114 H POC Glucose 175 H 151 H Calcium Phosphorus Magnesium ALT Alkaline Phosphatase Total Creatine Kinase CK-MB (CK-2) Rel Index Troponin T Albumin LDL Cholesterol Direct PTH Intact Salicylates Acetaminophen Crossmatch 03/05/19 03/05/19 03/05/19 05:37 12:08 17:11 WBC RBC Hgb Hct MCV MCH MCHC RDW Plt Count Lymph % (Auto) [place] % (Auto) Eos % (Auto) Baso % (Auto) Lymph # [place] # Eos # Baso # Seg Neutrophils % Seg Neuts % (Manual) Lymphocytes % (Manual) Eosinophils % (Manual) Seg Neutrophils # Lymphocytes # (Manual) Eosinophils # (Manual) PT INR D-Dimer POC ABG pH POC ABG pCO2 POC ABG pO2 ABG pO2 ABG HCO3 ABG Base Excess ABG Hemoglobin Oxyhemoglobin Sodium Potassium Chloride Carbon Dioxide BUN Creatinine Glucose POC Glucose 134 H 135 H 135 H Calcium Phosphorus Magnesium ALT Alkaline Phosphatase Total Creatine Kinase CK-MB (CK-2) Rel Index Troponin T Albumin LDL Cholesterol Direct PTH Intact Salicylates Acetaminophen Crossmatch 03/06/19 03/06/19 03/06/19 00:16 13:05 18:09 WBC RBC Hgb Hct MCV MCH MCHC RDW Plt Count Lymph % (Auto) [place] % (Auto) Eos % (Auto) Baso % (Auto) Lymph # [place] # Eos # Baso # Seg Neutrophils % Seg Neuts % (Manual) Lymphocytes % (Manual) Eosinophils % (Manual) Seg Neutrophils # Lymphocytes # (Manual) Eosinophils # (Manual) PT INR D-Dimer POC ABG pH POC ABG pCO2 POC ABG pO2 ABG pO2 ABG HCO3 ABG Base Excess ABG Hemoglobin Oxyhemoglobin Sodium Potassium Chloride Carbon Dioxide BUN Creatinine Glucose POC Glucose 117 H 113 H 131 H Calcium Phosphorus Magnesium ALT Alkaline Phosphatase Total Creatine Kinase CK-MB (CK-2) Rel Index Troponin T Albumin LDL Cholesterol Direct PTH Intact Salicylates Acetaminophen Crossmatch 03/07/19 03/08/19 03/08/19 05:25 05:33 16:00 WBC RBC 2.44 L Hgb 6.6 L Hct 20.8 L MCV MCH 27 L MCHC RDW 19.2 H Plt Count Lymph % (Auto) [place] % (Auto) Eos % (Auto) 8.6 H Baso % (Auto) Lymph # 0.8 L [place] # Eos # 0.5 H Baso # Seg Neutrophils % 70.7 H Seg Neuts % (Manual) Lymphocytes % (Manual) Eosinophils % (Manual) Seg Neutrophils # Lymphocytes # (Manual) Eosinophils # (Manual) PT INR D-Dimer POC ABG pH POC ABG pCO2 POC ABG pO2 ABG pO2 ABG HCO3 ABG Base Excess ABG Hemoglobin Oxyhemoglobin Sodium Potassium Chloride Carbon Dioxide BUN Creatinine Glucose POC Glucose 106 H 108 H Calcium Phosphorus Magnesium ALT Alkaline Phosphatase Total Creatine Kinase CK-MB (CK-2) Rel Index Troponin T Albumin LDL Cholesterol Direct PTH Intact Salicylates Acetaminophen Crossmatch 03/08/19 03/08/19 03/08/19 16:00 18:38 Unknown WBC RBC Hgb Hct MCV MCH MCHC RDW Plt Count Lymph % (Auto) [place] % (Auto) Eos % (Auto) Baso % (Auto) Lymph # [place] # Eos # Baso # Seg Neutrophils % Seg Neuts % (Manual) Lymphocytes % (Manual) Eosinophils % (Manual) Seg Neutrophils # Lymphocytes # (Manual) Eosinophils # (Manual) PT INR D-Dimer POC ABG pH POC ABG pCO2 POC ABG pO2 ABG pO2 ABG HCO3 ABG Base Excess ABG Hemoglobin Oxyhemoglobin Sodium Potassium 5.4 H D Chloride Carbon Dioxide BUN 47 H Creatinine 2.6 H Glucose POC Glucose 123 H Calcium Phosphorus Magnesium ALT < 5 L Alkaline Phosphatase Total Creatine Kinase CK-MB (CK-2) Rel Index Troponin T Albumin 2.2 L LDL Cholesterol Direct PTH Intact Salicylates Acetaminophen Crossmatch See Detail 03/09/19 03/09/19 03/09/19 10:48 12:28 13:53 WBC RBC 2.85 L Hgb 7.7 L Hct 24.2 L MCV MCH 27 L MCHC RDW 18.7 H Plt Count Lymph % (Auto) [place] % (Auto) Eos % (Auto) Baso % (Auto) Lymph # [place] # Eos # Baso # Seg Neutrophils % Seg Neuts % (Manual) Lymphocytes % (Manual) Eosinophils % (Manual) Seg Neutrophils # Lymphocytes # (Manual) Eosinophils # (Manual) PT INR D-Dimer POC ABG pH POC ABG pCO2 POC ABG pO2 ABG pO2 ABG HCO3 30.5 H ABG Base Excess 5.6 H ABG Hemoglobin 8.1 L Oxyhemoglobin 93.8 L Sodium Potassium Chloride Carbon Dioxide BUN Creatinine Glucose POC Glucose 114 H Calcium Phosphorus Magnesium ALT Alkaline Phosphatase Total Creatine Kinase CK-MB (CK-2) Rel Index Troponin T Albumin LDL Cholesterol Direct PTH Intact Salicylates Acetaminophen Crossmatch 03/09/19 03/09/19 03/10/19 17:58 23:53 12:01 WBC RBC Hgb Hct MCV MCH MCHC RDW Plt Count Lymph % (Auto) [place] % (Auto) Eos % (Auto) Baso % (Auto) Lymph # [place] # Eos # Baso # Seg Neutrophils % Seg Neuts % (Manual) Lymphocytes % (Manual) Eosinophils % (Manual) Seg Neutrophils # Lymphocytes # (Manual) Eosinophils # (Manual) PT INR D-Dimer POC ABG pH POC ABG pCO2 POC ABG pO2 ABG pO2 ABG HCO3 ABG Base Excess ABG Hemoglobin Oxyhemoglobin Sodium Potassium Chloride Carbon Dioxide BUN Creatinine Glucose POC Glucose 108 H 128 H 144 H Calcium Phosphorus Magnesium ALT Alkaline Phosphatase Total Creatine Kinase CK-MB (CK-2) Rel Index Troponin T Albumin LDL Cholesterol Direct PTH Intact Salicylates Acetaminophen Crossmatch 03/10/19 03/11/19 03/11/19 16:50 00:24 05:02 WBC RBC Hgb Hct MCV MCH MCHC RDW Plt Count Lymph % (Auto) [place] % (Auto) Eos % (Auto) Baso % (Auto) Lymph # [place] # Eos # Baso # Seg Neutrophils % Seg Neuts % (Manual) Lymphocytes % (Manual) Eosinophils % (Manual) Seg Neutrophils # Lymphocytes # (Manual) Eosinophils # (Manual) PT INR D-Dimer POC ABG pH POC ABG pCO2 POC ABG pO2 ABG pO2 ABG HCO3 ABG Base Excess ABG Hemoglobin Oxyhemoglobin Sodium Potassium Chloride Carbon Dioxide BUN Creatinine Glucose POC Glucose 147 H 123 H 120 H Calcium Phosphorus Magnesium ALT Alkaline Phosphatase Total Creatine Kinase CK-MB (CK-2) Rel Index Troponin T Albumin LDL Cholesterol Direct PTH Intact Salicylates Acetaminophen Crossmatch 03/11/19 03/11/19 03/11/19 11:56 12:20 18:37 WBC RBC Hgb Hct MCV MCH MCHC RDW Plt Count Lymph % (Auto) [place] % (Auto) Eos % (Auto) Baso % (Auto) Lymph # [place] # Eos # Baso # Seg Neutrophils % Seg Neuts % (Manual) Lymphocytes % (Manual) Eosinophils % (Manual) Seg Neutrophils # Lymphocytes # (Manual) Eosinophils # (Manual) PT INR D-Dimer POC ABG pH POC ABG pCO2 POC ABG pO2 ABG pO2 ABG HCO3 ABG Base Excess ABG Hemoglobin Oxyhemoglobin Sodium Potassium 5.2 H Chloride Carbon Dioxide BUN Creatinine Glucose POC Glucose 123 H 125 H Calcium Phosphorus Magnesium ALT Alkaline Phosphatase Total Creatine Kinase CK-MB (CK-2) Rel Index Troponin T Albumin LDL Cholesterol Direct PTH Intact Salicylates Acetaminophen Crossmatch 03/11/19 03/12/19 03/12/19 22:52 12:04 18:25 WBC RBC Hgb Hct MCV MCH MCHC RDW Plt Count Lymph % (Auto) [place] % (Auto) Eos % (Auto) Baso % (Auto) Lymph # [place] # Eos # Baso # Seg Neutrophils % Seg Neuts % (Manual) Lymphocytes % (Manual) Eosinophils % (Manual) Seg Neutrophils # Lymphocytes # (Manual) Eosinophils # (Manual) PT INR D-Dimer POC ABG pH POC ABG pCO2 POC ABG pO2 ABG pO2 ABG HCO3 ABG Base Excess ABG Hemoglobin Oxyhemoglobin Sodium Potassium Chloride Carbon Dioxide BUN Creatinine Glucose POC Glucose 110 H 106 H 118 H Calcium Phosphorus Magnesium ALT Alkaline Phosphatase Total Creatine Kinase CK-MB (CK-2) Rel Index Troponin T Albumin LDL Cholesterol Direct PTH Intact Salicylates Acetaminophen Crossmatch 03/12/19 03/13/19 03/13/19 23:36 04:38 04:38 WBC RBC 2.95 L Hgb 7.9 L Hct 24.9 L MCV MCH 27 L MCHC RDW 19.9 H Plt Count Lymph % (Auto) 11.1 L [place] % (Auto) 8.1 H Eos % (Auto) 4.4 H Baso % (Auto) Lymph # 0.9 L [place] # Eos # Baso # Seg Neutrophils % 75.4 H Seg Neuts % (Manual) Lymphocytes % (Manual) Eosinophils % (Manual) Seg Neutrophils # Lymphocytes # (Manual) Eosinophils # (Manual) PT INR D-Dimer POC ABG pH POC ABG pCO2 POC ABG pO2 ABG pO2 ABG HCO3 ABG Base Excess ABG Hemoglobin Oxyhemoglobin Sodium 136 L Potassium 5.1 H Chloride 93.8 L Carbon Dioxide BUN 48 H Creatinine 2.7 H Glucose 102 H POC Glucose 115 H Calcium Phosphorus Magnesium ALT < 5 L Alkaline Phosphatase 143 H Total Creatine Kinase CK-MB (CK-2) Rel Index Troponin T Albumin 2.5 L LDL Cholesterol Direct PTH Intact Salicylates Acetaminophen Crossmatch 03/13/19 03/13/19 03/13/19 05:33 13:37 18:03 WBC RBC Hgb Hct MCV MCH MCHC RDW Plt Count Lymph % (Auto) [place] % (Auto) Eos % (Auto) Baso % (Auto) Lymph # [place] # Eos # Baso # Seg Neutrophils % Seg Neuts % (Manual) Lymphocytes % (Manual) Eosinophils % (Manual) Seg Neutrophils # Lymphocytes # (Manual) Eosinophils # (Manual) PT INR D-Dimer POC ABG pH POC ABG pCO2 POC ABG pO2 ABG pO2 ABG HCO3 ABG Base Excess ABG Hemoglobin Oxyhemoglobin Sodium Potassium Chloride Carbon Dioxide BUN Creatinine Glucose POC Glucose 140 H 150 H 158 H Calcium Phosphorus Magnesium ALT Alkaline Phosphatase Total Creatine Kinase CK-MB (CK-2) Rel Index Troponin T Albumin LDL Cholesterol Direct PTH Intact Salicylates Acetaminophen Crossmatch 03/13/19 03/14/19 03/14/19 23:32 05:24 12:20 WBC RBC Hgb Hct MCV MCH MCHC RDW Plt Count Lymph % (Auto) [place] % (Auto) Eos % (Auto) Baso % (Auto) Lymph # [place] # Eos # Baso # Seg Neutrophils % Seg Neuts % (Manual) Lymphocytes % (Manual) Eosinophils % (Manual) Seg Neutrophils # Lymphocytes # (Manual) Eosinophils # (Manual) PT INR D-Dimer POC ABG pH POC ABG pCO2 POC ABG pO2 ABG pO2 ABG HCO3 ABG Base Excess ABG Hemoglobin Oxyhemoglobin Sodium Potassium Chloride Carbon Dioxide BUN Creatinine Glucose POC Glucose 162 H 146 H 127 H Calcium Phosphorus Magnesium ALT Alkaline Phosphatase Total Creatine Kinase CK-MB (CK-2) Rel Index Troponin T Albumin LDL Cholesterol Direct PTH Intact Salicylates Acetaminophen Crossmatch 03/14/19 03/14/19 03/15/19 18:05 23:57 04:38 WBC 12.8 H RBC 3.11 L Hgb 8.1 L Hct 26.5 L MCV MCH 26 L MCHC 31 L RDW 19.7 H Plt Count Lymph % (Auto) 4.4 L [place] % (Auto) 7.4 H Eos % (Auto) Baso % (Auto) Lymph # 0.6 L [place] # 0.9 H Eos # Baso # Seg Neutrophils % 87.3 H Seg Neuts % (Manual) Lymphocytes % (Manual) Eosinophils % (Manual) Seg Neutrophils # 11.2 H Lymphocytes # (Manual) Eosinophils # (Manual) PT INR D-Dimer POC ABG pH POC ABG pCO2 POC ABG pO2 ABG pO2 ABG HCO3 ABG Base Excess ABG Hemoglobin Oxyhemoglobin Sodium Potassium Chloride Carbon Dioxide BUN Creatinine Glucose POC Glucose 142 H 155 H Calcium Phosphorus Magnesium ALT Alkaline Phosphatase Total Creatine Kinase CK-MB (CK-2) Rel Index Troponin T Albumin LDL Cholesterol Direct PTH Intact Salicylates Acetaminophen Crossmatch 03/15/19 03/15/19 03/15/19 04:38 05:31 11:32 WBC RBC Hgb Hct MCV MCH MCHC RDW Plt Count Lymph % (Auto) [place] % (Auto) Eos % (Auto) Baso % (Auto) Lymph # [place] # Eos # Baso # Seg Neutrophils % Seg Neuts % (Manual) Lymphocytes % (Manual) Eosinophils % (Manual) Seg Neutrophils # Lymphocytes # (Manual) Eosinophils # (Manual) PT INR D-Dimer POC ABG pH POC ABG pCO2 POC ABG pO2 ABG pO2 ABG HCO3 ABG Base Excess ABG Hemoglobin Oxyhemoglobin Sodium 135 L Potassium Chloride 91.9 L Carbon Dioxide BUN 54 H Creatinine 2.8 H Glucose 128 H POC Glucose 160 H 109 H Calcium 11.1 H Phosphorus Magnesium ALT Alkaline Phosphatase 161 H Total Creatine Kinase CK-MB (CK-2) Rel Index Troponin T Albumin 2.3 L LDL Cholesterol Direct PTH Intact Salicylates Acetaminophen Crossmatch 03/15/19 03/15/19 03/16/19 18:15 23:41 05:40 WBC RBC Hgb Hct MCV MCH MCHC RDW Plt Count Lymph % (Auto) [place] % (Auto) Eos % (Auto) Baso % (Auto) Lymph # [place] # Eos # Baso # Seg Neutrophils % Seg Neuts % (Manual) Lymphocytes % (Manual) Eosinophils % (Manual) Seg Neutrophils # Lymphocytes # (Manual) Eosinophils # (Manual) PT INR D-Dimer POC ABG pH POC ABG pCO2 POC ABG pO2 ABG pO2 ABG HCO3 ABG Base Excess ABG Hemoglobin Oxyhemoglobin Sodium Potassium Chloride Carbon Dioxide BUN Creatinine Glucose POC Glucose 151 H 110 H 163 H Calcium Phosphorus Magnesium ALT Alkaline Phosphatase Total Creatine Kinase CK-MB (CK-2) Rel Index Troponin T Albumin LDL Cholesterol Direct PTH Intact Salicylates Acetaminophen Crossmatch 03/16/19 03/16/19 03/16/19 11:55 17:04 23:58 WBC RBC Hgb Hct MCV MCH MCHC RDW Plt Count Lymph % (Auto) [place] % (Auto) Eos % (Auto) Baso % (Auto) Lymph # [place] # Eos # Baso # Seg Neutrophils % Seg Neuts % (Manual) Lymphocytes % (Manual) Eosinophils % (Manual) Seg Neutrophils # Lymphocytes # (Manual) Eosinophils # (Manual) PT INR D-Dimer POC ABG pH POC ABG pCO2 POC ABG pO2 ABG pO2 ABG HCO3 ABG Base Excess ABG Hemoglobin Oxyhemoglobin Sodium Potassium Chloride Carbon Dioxide BUN Creatinine Glucose POC Glucose 114 H 147 H 192 H Calcium Phosphorus Magnesium ALT Alkaline Phosphatase Total Creatine Kinase CK-MB (CK-2) Rel Index Troponin T Albumin LDL Cholesterol Direct PTH Intact Salicylates Acetaminophen Crossmatch 03/17/19 03/17/19 03/17/19 05:53 11:17 17:01 WBC RBC Hgb Hct MCV MCH MCHC RDW Plt Count Lymph % (Auto) [place] % (Auto) Eos % (Auto) Baso % (Auto) Lymph # [place] # Eos # Baso # Seg Neutrophils % Seg Neuts % (Manual) Lymphocytes % (Manual) Eosinophils % (Manual) Seg Neutrophils # Lymphocytes # (Manual) Eosinophils # (Manual) PT INR D-Dimer POC ABG pH POC ABG pCO2 POC ABG pO2 ABG pO2 ABG HCO3 ABG Base Excess ABG Hemoglobin Oxyhemoglobin Sodium Potassium Chloride Carbon Dioxide BUN Creatinine Glucose POC Glucose 151 H 161 H 152 H Calcium Phosphorus Magnesium ALT Alkaline Phosphatase Total Creatine Kinase CK-MB (CK-2) Rel Index Troponin T Albumin LDL Cholesterol Direct PTH Intact Salicylates Acetaminophen Crossmatch 03/17/19 03/18/19 03/18/19 21:47 04:15 04:44 WBC RBC Hgb Hct MCV MCH MCHC RDW Plt Count Lymph % (Auto) [place] % (Auto) Eos % (Auto) Baso % (Auto) Lymph # [place] # Eos # Baso # Seg Neutrophils % Seg Neuts % (Manual) Lymphocytes % (Manual) Eosinophils % (Manual) Seg Neutrophils # Lymphocytes # (Manual) Eosinophils # (Manual) PT INR D-Dimer POC ABG pH POC ABG pCO2 POC ABG pO2 ABG pO2 102.8 H ABG HCO3 28.3 H ABG Base Excess ABG Hemoglobin 10.4 L Oxyhemoglobin 94.5 L Sodium Potassium Chloride Carbon Dioxide BUN Creatinine Glucose POC Glucose 170 H 150 H Calcium Phosphorus Magnesium ALT Alkaline Phosphatase Total Creatine Kinase CK-MB (CK-2) Rel Index Troponin T Albumin LDL Cholesterol Direct PTH Intact Salicylates Acetaminophen Crossmatch 03/18/19 03/18/19 03/18/19 06:38 12:12 17:47 WBC RBC Hgb Hct MCV MCH MCHC RDW Plt Count Lymph % (Auto) [place] % (Auto) Eos % (Auto) Baso % (Auto) Lymph # [place] # Eos # Baso # Seg Neutrophils % Seg Neuts % (Manual) Lymphocytes % (Manual) Eosinophils % (Manual) Seg Neutrophils # Lymphocytes # (Manual) Eosinophils # (Manual) PT INR D-Dimer POC ABG pH 7.510 H POC ABG pCO2 POC ABG pO2 164 H ABG pO2 ABG HCO3 ABG Base Excess ABG Hemoglobin Oxyhemoglobin Sodium Potassium Chloride Carbon Dioxide BUN Creatinine Glucose POC Glucose 145 H 149 H Calcium Phosphorus Magnesium ALT Alkaline Phosphatase Total Creatine Kinase CK-MB (CK-2) Rel Index Troponin T Albumin LDL Cholesterol Direct PTH Intact Salicylates Acetaminophen Crossmatch 03/18/19 03/19/19 03/19/19 23:25 01:11 04:23 WBC 15.6 H RBC 2.51 L Hgb 6.5 L Hct 21.6 L MCV MCH 26 L MCHC 30 L RDW 19.8 H Plt Count Lymph % (Auto) 6.0 L [place] % (Auto) Eos % (Auto) Baso % (Auto) Lymph # 0.9 L [place] # 1.0 H Eos # Baso # Seg Neutrophils % 85.5 H Seg Neuts % (Manual) Lymphocytes % (Manual) Eosinophils % (Manual) Seg Neutrophils # 13.4 H Lymphocytes # (Manual) Eosinophils # (Manual) PT INR D-Dimer POC ABG pH POC ABG pCO2 POC ABG pO2 ABG pO2 78.3 L ABG HCO3 30.7 H ABG Base Excess 5.8 H ABG Hemoglobin 5.8 L Oxyhemoglobin 94.6 L Sodium Potassium Chloride Carbon Dioxide BUN Creatinine Glucose POC Glucose 190 H Calcium Phosphorus Magnesium ALT Alkaline Phosphatase Total Creatine Kinase CK-MB (CK-2) Rel Index Troponin T Albumin LDL Cholesterol Direct PTH Intact Salicylates Acetaminophen Crossmatch 03/19/19 03/19/19 03/19/19 05:22 05:35 08:54 WBC RBC Hgb Hct MCV MCH MCHC RDW Plt Count Lymph % (Auto) [place] % (Auto) Eos % (Auto) Baso % (Auto) Lymph # [place] # Eos # Baso # Seg Neutrophils % Seg Neuts % (Manual) Lymphocytes % (Manual) Eosinophils % (Manual) Seg Neutrophils # Lymphocytes # (Manual) Eosinophils # (Manual) PT INR D-Dimer POC ABG pH POC ABG pCO2 POC ABG pO2 ABG pO2 ABG HCO3 ABG Base Excess ABG Hemoglobin Oxyhemoglobin Sodium Potassium Chloride Carbon Dioxide BUN Creatinine Glucose POC Glucose 167 H Calcium Phosphorus Magnesium ALT Alkaline Phosphatase Total Creatine Kinase CK-MB (CK-2) Rel Index Troponin T Albumin LDL Cholesterol Direct PTH Intact Salicylates Acetaminophen Crossmatch See Detail See Detail 03/19/19 03/19/19 03/19/19 12:36 17:02 23:25 WBC RBC Hgb Hct MCV MCH MCHC RDW Plt Count Lymph % (Auto) [place] % (Auto) Eos % (Auto) Baso % (Auto) Lymph # [place] # Eos # Baso # Seg Neutrophils % Seg Neuts % (Manual) Lymphocytes % (Manual) Eosinophils % (Manual) Seg Neutrophils # Lymphocytes # (Manual) Eosinophils # (Manual) PT INR D-Dimer POC ABG pH POC ABG pCO2 POC ABG pO2 ABG pO2 ABG HCO3 ABG Base Excess ABG Hemoglobin Oxyhemoglobin Sodium Potassium Chloride Carbon Dioxide BUN Creatinine Glucose POC Glucose 167 H 135 H 136 H Calcium Phosphorus Magnesium ALT Alkaline Phosphatase Total Creatine Kinase CK-MB (CK-2) Rel Index Troponin T Albumin LDL Cholesterol Direct PTH Intact Salicylates Acetaminophen Crossmatch 03/20/19 03/20/19 03/20/19 05:38 08:40 08:40 WBC RBC 2.61 L Hgb 7.1 L Hct 22.0 L MCV MCH 27 L MCHC RDW 19.6 H Plt Count Lymph % (Auto) 8.2 L [place] % (Auto) 8.3 H Eos % (Auto) 5.7 H Baso % (Auto) Lymph # 0.8 L [place] # Eos # 0.5 H Baso # Seg Neutrophils % 77.3 H Seg Neuts % (Manual) Lymphocytes % (Manual) Eosinophils % (Manual) Seg Neutrophils # Lymphocytes # (Manual) Eosinophils # (Manual) PT INR D-Dimer POC ABG pH POC ABG pCO2 POC ABG pO2 ABG pO2 ABG HCO3 ABG Base Excess ABG Hemoglobin Oxyhemoglobin Sodium Potassium Chloride 95.9 L Carbon Dioxide BUN 69 H Creatinine 2.8 H Glucose 115 H POC Glucose 134 H Calcium 10.5 H Phosphorus Magnesium ALT Alkaline Phosphatase Total Creatine Kinase CK-MB (CK-2) Rel Index Troponin T Albumin LDL Cholesterol Direct PTH Intact Salicylates Acetaminophen Crossmatch 03/20/19 03/20/19 03/20/19 12:13 18:04 23:49 WBC RBC Hgb Hct MCV MCH MCHC RDW Plt Count Lymph % (Auto) [place] % (Auto) Eos % (Auto) Baso % (Auto) Lymph # [place] # Eos # Baso # Seg Neutrophils % Seg Neuts % (Manual) Lymphocytes % (Manual) Eosinophils % (Manual) Seg Neutrophils # Lymphocytes # (Manual) Eosinophils # (Manual) PT INR D-Dimer POC ABG pH POC ABG pCO2 POC ABG pO2 ABG pO2 ABG HCO3 ABG Base Excess ABG Hemoglobin Oxyhemoglobin Sodium Potassium Chloride Carbon Dioxide BUN Creatinine Glucose POC Glucose 144 H 165 H 172 H Calcium Phosphorus Magnesium ALT Alkaline Phosphatase Total Creatine Kinase CK-MB (CK-2) Rel Index Troponin T Albumin LDL Cholesterol Direct PTH Intact Salicylates Acetaminophen Crossmatch 03/21/19 03/21/1919 05:00 06:29 06:30 WBC RBC 2.72 L Hgb 7.4 L Hct 22.9 L MCV MCH 27 L MCHC RDW 19.4 H Plt Count Lymph % (Auto) [place] % (Auto) Eos % (Auto) Baso % (Auto) Lymph # [place] # Eos # Baso # Seg Neutrophils % Seg Neuts % (Manual) 81.0 H Lymphocytes % (Manual) 8.0 L Eosinophils % (Manual) 8.0 H Seg Neutrophils # Lymphocytes # (Manual) 0.7 L Eosinophils # (Manual) 0.7 H PT INR D-Dimer POC ABG pH POC ABG pCO2 POC ABG pO2 ABG pO2 ABG HCO3 ABG Base Excess ABG Hemoglobin Oxyhemoglobin Sodium Potassium Chloride Carbon Dioxide 33 H BUN 43 H Creatinine 1.7 H Glucose 145 H POC Glucose 156 H Calcium Phosphorus Magnesium ALT Alkaline Phosphatase 212 H Total Creatine Kinase CK-MB (CK-2) Rel Index Troponin T Albumin 2.2 L LDL Cholesterol Direct PTH Intact Salicylates Acetaminophen Crossmatch 03/21/19 03/21/19 03/22/19 12:02 18:07 00:21 WBC RBC Hgb Hct MCV MCH MCHC RDW Plt Count Lymph % (Auto) [place] % (Auto) Eos % (Auto) Baso % (Auto) Lymph # [place] # Eos # Baso # Seg Neutrophils % Seg Neuts % (Manual) Lymphocytes % (Manual) Eosinophils % (Manual) Seg Neutrophils # Lymphocytes # (Manual) Eosinophils # (Manual) PT INR D-Dimer POC ABG pH POC ABG pCO2 POC ABG pO2 ABG pO2 ABG HCO3 ABG Base Excess ABG Hemoglobin Oxyhemoglobin Sodium Potassium Chloride Carbon Dioxide BUN Creatinine Glucose POC Glucose 163 H 144 H 153 H Calcium Phosphorus Magnesium ALT Alkaline Phosphatase Total Creatine Kinase CK-MB (CK-2) Rel Index Troponin T Albumin LDL Cholesterol Direct PTH Intact Salicylates Acetaminophen Crossmatch 03/22/19 03/22/19 03/22/19 05:23 05:23 05:31 WBC RBC 2.58 L Hgb 7.1 L Hct 21.8 L MCV MCH 27 L MCHC RDW 19.2 H Plt Count Lymph % (Auto) [place] % (Auto) Eos % (Auto) Baso % (Auto) Lymph # [place] # Eos # Baso # Seg Neutrophils % Seg Neuts % (Manual) Lymphocytes % (Manual) Eosinophils % (Manual) Seg Neutrophils # Lymphocytes # (Manual) Eosinophils # (Manual) PT INR D-Dimer POC ABG pH POC ABG pCO2 POC ABG pO2 ABG pO2 ABG HCO3 ABG Base Excess ABG Hemoglobin Oxyhemoglobin Sodium 147 H Potassium Chloride Carbon Dioxide BUN 68 H Creatinine 2.5 H Glucose POC Glucose 116 H Calcium 10.3 H Phosphorus Magnesium ALT Alkaline Phosphatase Total Creatine Kinase CK-MB (CK-2) Rel Index Troponin T Albumin LDL Cholesterol Direct PTH Intact Salicylates Acetaminophen Crossmatch 03/22/19 03/22/19 03/22/19 08:48 12:37 17:35 WBC RBC Hgb Hct MCV MCH MCHC RDW Plt Count Lymph % (Auto) [place] % (Auto) Eos % (Auto) Baso % (Auto) Lymph # [place] # Eos # Baso # Seg Neutrophils % Seg Neuts % (Manual) Lymphocytes % (Manual) Eosinophils % (Manual) Seg Neutrophils # Lymphocytes # (Manual) Eosinophils # (Manual) PT INR D-Dimer POC ABG pH POC ABG pCO2 POC ABG pO2 ABG pO2 ABG HCO3 ABG Base Excess ABG Hemoglobin Oxyhemoglobin Sodium Potassium Chloride Carbon Dioxide BUN Creatinine Glucose POC Glucose 143 H 155 H Calcium Phosphorus Magnesium ALT Alkaline Phosphatase Total Creatine Kinase CK-MB (CK-2) Rel Index Troponin T Albumin LDL Cholesterol Direct PTH Intact Salicylates Acetaminophen Crossmatch See Detail 03/23/19 03/23/19 03/23/19 00:07 04:00 04:00 WBC 11.2 H RBC 2.32 L Hgb 6.4 L Hct 19.7 L* MCV MCH MCHC RDW 19.4 H Plt Count Lymph % (Auto) [place] % (Auto) Eos % (Auto) Baso % (Auto) Lymph # [place] # Eos # Baso # Seg Neutrophils % Seg Neuts % (Manual) Lymphocytes % (Manual) Eosinophils % (Manual) Seg Neutrophils # Lymphocytes # (Manual) Eosinophils # (Manual) PT INR D-Dimer POC ABG pH POC ABG pCO2 POC ABG pO2 ABG pO2 ABG HCO3 ABG Base Excess ABG Hemoglobin Oxyhemoglobin Sodium 147 H Potassium 5.2 H Chloride Carbon Dioxide BUN 86 H Creatinine 3.2 H Glucose 128 H POC Glucose 135 H Calcium 10.3 H Phosphorus Magnesium ALT Alkaline Phosphatase Total Creatine Kinase CK-MB (CK-2) Rel Index Troponin T Albumin LDL Cholesterol Direct PTH Intact Salicylates Acetaminophen Crossmatch 03/23/19 03/23/19 03/23/19 05:21 11:36 11:36 WBC RBC Hgb 7.9 L Hct 25.0 L MCV MCH MCHC RDW Plt Count Lymph % (Auto) [place] % (Auto) Eos % (Auto) Baso % (Auto) Lymph # [place] # Eos # Baso # Seg Neutrophils % Seg Neuts % (Manual) Lymphocytes % (Manual) Eosinophils % (Manual) Seg Neutrophils # Lymphocytes # (Manual) Eosinophils # (Manual) PT INR D-Dimer POC ABG pH POC ABG pCO2 POC ABG pO2 ABG pO2 ABG HCO3 ABG Base Excess ABG Hemoglobin Oxyhemoglobin Sodium Potassium Chloride Carbon Dioxide BUN Creatinine Glucose POC Glucose 132 H 147 H Calcium Phosphorus Magnesium ALT Alkaline Phosphatase Total Creatine Kinase CK-MB (CK-2) Rel Index Troponin T Albumin LDL Cholesterol Direct PTH Intact Salicylates Acetaminophen Crossmatch 03/23/19 03/24/19 03/24/19 17:31 01:22 04:20 WBC 12.2 H RBC 3.05 L Hgb 8.3 L Hct 25.9 L MCV MCH 27 L MCHC RDW 18.7 H Plt Count Lymph % (Auto) [place] % (Auto) Eos % (Auto) Baso % (Auto) Lymph # [place] # Eos # Baso # Seg Neutrophils % Seg Neuts % (Manual) Lymphocytes % (Manual) Eosinophils % (Manual) Seg Neutrophils # Lymphocytes # (Manual) Eosinophils # (Manual) PT INR D-Dimer POC ABG pH POC ABG pCO2 POC ABG pO2 ABG pO2 ABG HCO3 ABG Base Excess ABG Hemoglobin Oxyhemoglobin Sodium Potassium Chloride Carbon Dioxide BUN Creatinine Glucose POC Glucose 182 H 113 H Calcium Phosphorus Magnesium ALT Alkaline Phosphatase Total Creatine Kinase CK-MB (CK-2) Rel Index Troponin T Albumin LDL Cholesterol Direct PTH Intact Salicylates Acetaminophen Crossmatch 03/24/19 03/24/19 03/24/19 04:20 11:59 18:14 WBC RBC Hgb Hct MCV MCH MCHC RDW Plt Count Lymph % (Auto) [place] % (Auto) Eos % (Auto) Baso % (Auto) Lymph # [place] # Eos # Baso # Seg Neutrophils % Seg Neuts % (Manual) Lymphocytes % (Manual) Eosinophils % (Manual) Seg Neutrophils # Lymphocytes # (Manual) Eosinophils # (Manual) PT INR D-Dimer POC ABG pH POC ABG pCO2 POC ABG pO2 ABG pO2 ABG HCO3 ABG Base Excess ABG Hemoglobin Oxyhemoglobin Sodium Potassium Chloride 94.8 L Carbon Dioxide 32 H BUN 53 H Creatinine 2.3 H Glucose POC Glucose 163 H 134 H Calcium Phosphorus Magnesium ALT Alkaline Phosphatase Total Creatine Kinase CK-MB (CK-2) Rel Index Troponin T Albumin LDL Cholesterol Direct PTH Intact Salicylates Acetaminophen Crossmatch 03/24/19 03/25/19 03/25/19 23:15 05:52 12:02 WBC RBC Hgb Hct MCV MCH MCHC RDW Plt Count Lymph % (Auto) [place] % (Auto) Eos % (Auto) Baso % (Auto) Lymph # [place] # Eos # Baso # Seg Neutrophils % Seg Neuts % (Manual) Lymphocytes % (Manual) Eosinophils % (Manual) Seg Neutrophils # Lymphocytes # (Manual) Eosinophils # (Manual) PT INR D-Dimer POC ABG pH POC ABG pCO2 POC ABG pO2 ABG pO2 ABG HCO3 ABG Base Excess ABG Hemoglobin Oxyhemoglobin Sodium Potassium Chloride Carbon Dioxide BUN Creatinine Glucose POC Glucose 129 H 123 H 125 H Calcium Phosphorus Magnesium ALT Alkaline Phosphatase Total Creatine Kinase CK-MB (CK-2) Rel Index Troponin T Albumin LDL Cholesterol Direct PTH Intact Salicylates Acetaminophen Crossmatch 03/25/19 03/26/19 03/26/19 17:27 00:30 05:35 WBC RBC 3.01 L Hgb 8.1 L Hct 25.7 L MCV MCH 27 L MCHC RDW 19.2 H Plt Count Lymph % (Auto) 11.4 L [place] % (Auto) Eos % (Auto) 8.0 H Baso % (Auto) Lymph # 1.0 L [place] # Eos # 0.7 H Baso # Seg Neutrophils % 73.9 H Seg Neuts % (Manual) Lymphocytes % (Manual) Eosinophils % (Manual) Seg Neutrophils # Lymphocytes # (Manual) Eosinophils # (Manual) PT INR D-Dimer POC ABG pH POC ABG pCO2 POC ABG pO2 ABG pO2 ABG HCO3 ABG Base Excess ABG Hemoglobin Oxyhemoglobin Sodium Potassium Chloride Carbon Dioxide BUN Creatinine Glucose POC Glucose 130 H 129 H Calcium Phosphorus Magnesium ALT Alkaline Phosphatase Total Creatine Kinase CK-MB (CK-2) Rel Index Troponin T Albumin LDL Cholesterol Direct PTH Intact Salicylates Acetaminophen Crossmatch 03/26/19 03/26/19 03/26/19 05:35 05:45 12:16 WBC RBC Hgb Hct MCV MCH MCHC RDW Plt Count Lymph % (Auto) [place] % (Auto) Eos % (Auto) Baso % (Auto) Lymph # [place] # Eos # Baso # Seg Neutrophils % Seg Neuts % (Manual) Lymphocytes % (Manual) Eosinophils % (Manual) Seg Neutrophils # Lymphocytes # (Manual) Eosinophils # (Manual) PT INR D-Dimer POC ABG pH POC ABG pCO2 POC ABG pO2 ABG pO2 ABG HCO3 ABG Base Excess ABG Hemoglobin Oxyhemoglobin Sodium Potassium Chloride 94.9 L Carbon Dioxide 31 H BUN 44 H Creatinine 2.0 H Glucose POC Glucose 118 H 107 H Calcium Phosphorus Magnesium ALT Alkaline Phosphatase Total Creatine Kinase CK-MB (CK-2) Rel Index Troponin T Albumin LDL Cholesterol Direct PTH Intact Salicylates Acetaminophen Crossmatch 03/26/19 03/27/19 03/27/19 17:56 00:36 05:37 WBC RBC Hgb Hct MCV MCH MCHC RDW Plt Count Lymph % (Auto) [place] % (Auto) Eos % (Auto) Baso % (Auto) Lymph # [place] # Eos # Baso # Seg Neutrophils % Seg Neuts % (Manual) Lymphocytes % (Manual) Eosinophils % (Manual) Seg Neutrophils # Lymphocytes # (Manual) Eosinophils # (Manual) PT INR D-Dimer POC ABG pH POC ABG pCO2 POC ABG pO2 ABG pO2 ABG HCO3 ABG Base Excess ABG Hemoglobin Oxyhemoglobin Sodium Potassium Chloride Carbon Dioxide BUN Creatinine Glucose POC Glucose 107 H 110 H 122 H Calcium Phosphorus Magnesium ALT Alkaline Phosphatase Total Creatine Kinase CK-MB (CK-2) Rel Index Troponin T Albumin LDL Cholesterol Direct PTH Intact Salicylates Acetaminophen Crossmatch 03/27/19 03/27/19 03/28/19 11:22 18:00 05:17 WBC RBC Hgb Hct MCV MCH MCHC RDW Plt Count Lymph % (Auto) [place] % (Auto) Eos % (Auto) Baso % (Auto) Lymph # [place] # Eos # Baso # Seg Neutrophils % Seg Neuts % (Manual) Lymphocytes % (Manual) Eosinophils % (Manual) Seg Neutrophils # Lymphocytes # (Manual) Eosinophils # (Manual) PT INR D-Dimer POC ABG pH POC ABG pCO2 POC ABG pO2 ABG pO2 ABG HCO3 ABG Base Excess ABG Hemoglobin Oxyhemoglobin Sodium Potassium Chloride Carbon Dioxide BUN Creatinine Glucose POC Glucose 120 H 111 H 107 H Calcium Phosphorus Magnesium ALT Alkaline Phosphatase Total Creatine Kinase CK-MB (CK-2) Rel Index Troponin T Albumin LDL Cholesterol Direct PTH Intact Salicylates Acetaminophen Crossmatch 03/28/19 03/28/19 03/29/19 12:27 18:08 05:47 WBC RBC Hgb Hct MCV MCH MCHC RDW Plt Count Lymph % (Auto) [place] % (Auto) Eos % (Auto) Baso % (Auto) Lymph # [place] # Eos # Baso # Seg Neutrophils % Seg Neuts % (Manual) Lymphocytes % (Manual) Eosinophils % (Manual) Seg Neutrophils # Lymphocytes # (Manual) Eosinophils # (Manual) PT INR D-Dimer POC ABG pH POC ABG pCO2 POC ABG pO2 ABG pO2 ABG HCO3 ABG Base Excess ABG Hemoglobin Oxyhemoglobin Sodium Potassium Chloride Carbon Dioxide BUN Creatinine Glucose POC Glucose 114 H 121 H 112 H Calcium Phosphorus Magnesium ALT Alkaline Phosphatase Total Creatine Kinase CK-MB (CK-2) Rel Index Troponin T Albumin LDL Cholesterol Direct PTH Intact Salicylates Acetaminophen Crossmatch 03/29/19 03/29/19 03/30/19 12:14 18:08 00:31 WBC RBC Hgb Hct MCV MCH MCHC RDW Plt Count Lymph % (Auto) [place] % (Auto) Eos % (Auto) Baso % (Auto) Lymph # [place] # Eos # Baso # Seg Neutrophils % Seg Neuts % (Manual) Lymphocytes % (Manual) Eosinophils % (Manual) Seg Neutrophils # Lymphocytes # (Manual) Eosinophils # (Manual) PT INR D-Dimer POC ABG pH POC ABG pCO2 POC ABG pO2 ABG pO2 ABG HCO3 ABG Base Excess ABG Hemoglobin Oxyhemoglobin Sodium Potassium Chloride Carbon Dioxide BUN Creatinine Glucose POC Glucose 117 H 140 H 114 H Calcium Phosphorus Magnesium ALT Alkaline Phosphatase Total Creatine Kinase CK-MB (CK-2) Rel Index Troponin T Albumin LDL Cholesterol Direct PTH Intact Salicylates Acetaminophen Crossmatch 03/30/19 03/30/19 03/30/19 10:13 10:13 23:53 WBC RBC 2.81 L Hgb 7.7 L Hct 24.3 L MCV MCH 27 L MCHC RDW 19.0 H Plt Count Lymph % (Auto) 12.2 L [place] % (Auto) Eos % (Auto) 7.9 H Baso % (Auto) Lymph # 1.0 L [place] # Eos # 0.6 H Baso # Seg Neutrophils % 72.3 H Seg Neuts % (Manual) Lymphocytes % (Manual) Eosinophils % (Manual) Seg Neutrophils # Lymphocytes # (Manual) Eosinophils # (Manual) PT INR D-Dimer POC ABG pH POC ABG pCO2 POC ABG pO2 ABG pO2 ABG HCO3 ABG Base Excess ABG Hemoglobin Oxyhemoglobin Sodium Potassium 5.1 H Chloride 96.5 L Carbon Dioxide BUN 73 H Creatinine 3.9 H D Glucose POC Glucose 114 H Calcium 10.3 H Phosphorus 6.30 H Magnesium 2.70 H ALT Alkaline Phosphatase 185 H Total Creatine Kinase CK-MB (CK-2) Rel Index Troponin T Albumin 2.6 L LDL Cholesterol Direct PTH Intact Salicylates Acetaminophen Crossmatch 03/31/19 03/31/19 03/31/19 05:45 10:26 10:26 WBC RBC 3.01 L Hgb 8.2 L Hct 26.4 L MCV MCH 27 L MCHC 31 L RDW 20.3 H Plt Count Lymph % (Auto) 13.3 L [place] % (Auto) Eos % (Auto) 7.2 H Baso % (Auto) Lymph # 1.1 L [place] # Eos # 0.6 H Baso # Seg Neutrophils % 72.1 H Seg Neuts % (Manual) Lymphocytes % (Manual) Eosinophils % (Manual) Seg Neutrophils # Lymphocytes # (Manual) Eosinophils # (Manual) PT INR D-Dimer POC ABG pH POC ABG pCO2 POC ABG pO2 ABG pO2 ABG HCO3 ABG Base Excess ABG Hemoglobin Oxyhemoglobin Sodium Potassium Chloride 96.9 L Carbon Dioxide 33 H BUN 37 H Creatinine 2.4 H Glucose POC Glucose 108 H Calcium 10.3 H Phosphorus Magnesium ALT Alkaline Phosphatase Total Creatine Kinase CK-MB (CK-2) Rel Index Troponin T Albumin LDL Cholesterol Direct PTH Intact Salicylates Acetaminophen Crossmatch 03/31/19 04/01/19 04/01/19 12:38 05:48 12:06 WBC RBC Hgb Hct MCV MCH MCHC RDW Plt Count Lymph % (Auto) [place] % (Auto) Eos % (Auto) Baso % (Auto) Lymph # [place] # Eos # Baso # Seg Neutrophils % Seg Neuts % (Manual) Lymphocytes % (Manual) Eosinophils % (Manual) Seg Neutrophils # Lymphocytes # (Manual) Eosinophils # (Manual) PT INR D-Dimer POC ABG pH POC ABG pCO2 POC ABG pO2 ABG pO2 ABG HCO3 ABG Base Excess ABG Hemoglobin Oxyhemoglobin Sodium Potassium Chloride Carbon Dioxide BUN Creatinine Glucose POC Glucose 108 H 114 H 111 H Calcium Phosphorus Magnesium ALT Alkaline Phosphatase Total Creatine Kinase CK-MB (CK-2) Rel Index Troponin T Albumin LDL Cholesterol Direct PTH Intact Salicylates Acetaminophen Crossmatch 04/01/19 04/02/19 04/04/19 18:24 00:36 23:55 WBC RBC Hgb Hct MCV MCH MCHC RDW Plt Count Lymph % (Auto) [place] % (Auto) Eos % (Auto) Baso % (Auto) Lymph # [place] # Eos # Baso # Seg Neutrophils % Seg Neuts % (Manual) Lymphocytes % (Manual) Eosinophils % (Manual) Seg Neutrophils # Lymphocytes # (Manual) Eosinophils # (Manual) PT INR D-Dimer POC ABG pH POC ABG pCO2 POC ABG pO2 ABG pO2 ABG HCO3 ABG Base Excess ABG Hemoglobin Oxyhemoglobin Sodium Potassium Chloride Carbon Dioxide BUN Creatinine Glucose POC Glucose 113 H 117 H 109 H Calcium Phosphorus Magnesium ALT Alkaline Phosphatase Total Creatine Kinase CK-MB (CK-2) Rel Index Troponin T Albumin LDL Cholesterol Direct PTH Intact Salicylates Acetaminophen Crossmatch 04/06/19 04/06/19 04/06/19 00:11 06:02 23:30 WBC RBC Hgb Hct MCV MCH MCHC RDW Plt Count Lymph % (Auto) [place] % (Auto) Eos % (Auto) Baso % (Auto) Lymph # [place] # Eos # Baso # Seg Neutrophils % Seg Neuts % (Manual) Lymphocytes % (Manual) Eosinophils % (Manual) Seg Neutrophils # Lymphocytes # (Manual) Eosinophils # (Manual) PT INR D-Dimer POC ABG pH POC ABG pCO2 POC ABG pO2 ABG pO2 ABG HCO3 ABG Base Excess ABG Hemoglobin Oxyhemoglobin Sodium Potassium Chloride Carbon Dioxide BUN Creatinine Glucose POC Glucose 116 H 112 H 112 H Calcium Phosphorus Magnesium ALT Alkaline Phosphatase Total Creatine Kinase CK-MB (CK-2) Rel Index Troponin T Albumin LDL Cholesterol Direct PTH Intact Salicylates Acetaminophen Crossmatch 04/08/19 04/08/19 04/08/19 02:23 06:19 13:01 WBC RBC Hgb Hct MCV MCH MCHC RDW Plt Count Lymph % (Auto) [place] % (Auto) Eos % (Auto) Baso % (Auto) Lymph # [place] # Eos # Baso # Seg Neutrophils % Seg Neuts % (Manual) Lymphocytes % (Manual) Eosinophils % (Manual) Seg Neutrophils # Lymphocytes # (Manual) Eosinophils # (Manual) PT INR D-Dimer POC ABG pH POC ABG pCO2 POC ABG pO2 ABG pO2 ABG HCO3 ABG Base Excess ABG Hemoglobin Oxyhemoglobin Sodium Potassium Chloride Carbon Dioxide BUN Creatinine Glucose POC Glucose 144 H 126 H 118 H Calcium Phosphorus Magnesium ALT Alkaline Phosphatase Total Creatine Kinase CK-MB (CK-2) Rel Index Troponin T Albumin LDL Cholesterol Direct PTH Intact Salicylates Acetaminophen Crossmatch 04/08/19 04/09/19 04/10/19 23:28 05:52 06:34 WBC RBC Hgb Hct MCV MCH MCHC RDW Plt Count Lymph % (Auto) [place] % (Auto) Eos % (Auto) Baso % (Auto) Lymph # [place] # Eos # Baso # Seg Neutrophils % Seg Neuts % (Manual) Lymphocytes % (Manual) Eosinophils % (Manual) Seg Neutrophils # Lymphocytes # (Manual) Eosinophils # (Manual) PT INR D-Dimer POC ABG pH POC ABG pCO2 POC ABG pO2 ABG pO2 ABG HCO3 ABG Base Excess ABG Hemoglobin Oxyhemoglobin Sodium Potassium Chloride Carbon Dioxide BUN Creatinine Glucose POC Glucose 119 H 116 H 114 H Calcium Phosphorus Magnesium ALT Alkaline Phosphatase Total Creatine Kinase CK-MB (CK-2) Rel Index Troponin T Albumin LDL Cholesterol Direct PTH Intact Salicylates Acetaminophen Crossmatch 04/10/19 04/10/19 04/11/19 12:34 18:59 00:36 WBC RBC Hgb Hct MCV MCH MCHC RDW Plt Count Lymph % (Auto) [place] % (Auto) Eos % (Auto) Baso % (Auto) Lymph # [place] # Eos # Baso # Seg Neutrophils % Seg Neuts % (Manual) Lymphocytes % (Manual) Eosinophils % (Manual) Seg Neutrophils # Lymphocytes # (Manual) Eosinophils # (Manual) PT INR D-Dimer POC ABG pH POC ABG pCO2 POC ABG pO2 ABG pO2 ABG HCO3 ABG Base Excess ABG Hemoglobin Oxyhemoglobin Sodium Potassium Chloride Carbon Dioxide BUN Creatinine Glucose POC Glucose 112 H 109 H 124 H Calcium Phosphorus Magnesium ALT Alkaline Phosphatase Total Creatine Kinase CK-MB (CK-2) Rel Index Troponin T Albumin LDL Cholesterol Direct PTH Intact Salicylates Acetaminophen Crossmatch 04/11/19 04/11/19 04/12/19 08:01 17:25 02:18 WBC RBC Hgb Hct MCV MCH MCHC RDW Plt Count Lymph % (Auto) [place] % (Auto) Eos % (Auto) Baso % (Auto) Lymph # [place] # Eos # Baso # Seg Neutrophils % Seg Neuts % (Manual) Lymphocytes % (Manual) Eosinophils % (Manual) Seg Neutrophils # Lymphocytes # (Manual) Eosinophils # (Manual) PT INR D-Dimer POC ABG pH POC ABG pCO2 POC ABG pO2 ABG pO2 ABG HCO3 ABG Base Excess ABG Hemoglobin Oxyhemoglobin Sodium Potassium Chloride Carbon Dioxide BUN Creatinine Glucose POC Glucose 118 H 106 H 125 H Calcium Phosphorus Magnesium ALT Alkaline Phosphatase Total Creatine Kinase CK-MB (CK-2) Rel Index Troponin T Albumin LDL Cholesterol Direct PTH Intact Salicylates Acetaminophen Crossmatch 04/12/19 04/12/19 04/12/19 06:24 12:22 17:13 WBC RBC Hgb Hct MCV MCH MCHC RDW Plt Count Lymph % (Auto) [place] % (Auto) Eos % (Auto) Baso % (Auto) Lymph # [place] # Eos # Baso # Seg Neutrophils % Seg Neuts % (Manual) Lymphocytes % (Manual) Eosinophils % (Manual) Seg Neutrophils # Lymphocytes # (Manual) Eosinophils # (Manual) PT INR D-Dimer POC ABG pH POC ABG pCO2 POC ABG pO2 ABG pO2 ABG HCO3 ABG Base Excess ABG Hemoglobin Oxyhemoglobin Sodium Potassium Chloride Carbon Dioxide BUN Creatinine Glucose POC Glucose 128 H 114 H 110 H Calcium Phosphorus Magnesium ALT Alkaline Phosphatase Total Creatine Kinase CK-MB (CK-2) Rel Index Troponin T Albumin LDL Cholesterol Direct PTH Intact Salicylates Acetaminophen Crossmatch 04/13/19 04/13/19 04/13/19 06:59 07:31 07:31 WBC RBC 3.34 L Hgb 8.9 L Hct 28.6 L MCV MCH 27 L MCHC 31 L RDW 19.6 H Plt Count Lymph % (Auto) [place] % (Auto) Eos % (Auto) Baso % (Auto) Lymph # [place] # Eos # Baso # Seg Neutrophils % Seg Neuts % (Manual) Lymphocytes % (Manual) Eosinophils % (Manual) Seg Neutrophils # Lymphocytes # (Manual) Eosinophils # (Manual) PT INR D-Dimer POC ABG pH POC ABG pCO2 POC ABG pO2 ABG pO2 ABG HCO3 ABG Base Excess ABG Hemoglobin Oxyhemoglobin Sodium Potassium Chloride 96.4 L Carbon Dioxide 33 H BUN 66 H Creatinine 4.5 H Glucose 103 H POC Glucose 107 H Calcium Phosphorus Magnesium ALT Alkaline Phosphatase Total Creatine Kinase CK-MB (CK-2) Rel Index Troponin T Albumin LDL Cholesterol Direct PTH Intact Salicylates Acetaminophen Crossmatch 04/13/19 04/14/19 04/14/19 23:43 05:50 13:07 WBC RBC Hgb Hct MCV MCH MCHC RDW Plt Count Lymph % (Auto) [place] % (Auto) Eos % (Auto) Baso % (Auto) Lymph # [place] # Eos # Baso # Seg Neutrophils % Seg Neuts % (Manual) Lymphocytes % (Manual) Eosinophils % (Manual) Seg Neutrophils # Lymphocytes # (Manual) Eosinophils # (Manual) PT INR D-Dimer POC ABG pH POC ABG pCO2 POC ABG pO2 ABG pO2 ABG HCO3 ABG Base Excess ABG Hemoglobin Oxyhemoglobin Sodium Potassium Chloride Carbon Dioxide BUN Creatinine Glucose POC Glucose 119 H 112 H 112 H Calcium Phosphorus Magnesium ALT Alkaline Phosphatase Total Creatine Kinase CK-MB (CK-2) Rel Index Troponin T Albumin LDL Cholesterol Direct PTH Intact Salicylates Acetaminophen Crossmatch 04/14/19 04/15/19 04/15/19 18:35 01:18 05:17 WBC RBC Hgb Hct MCV MCH MCHC RDW Plt Count Lymph % (Auto) [place] % (Auto) Eos % (Auto) Baso % (Auto) Lymph # [place] # Eos # Baso # Seg Neutrophils % Seg Neuts % (Manual) Lymphocytes % (Manual) Eosinophils % (Manual) Seg Neutrophils # Lymphocytes # (Manual) Eosinophils # (Manual) PT INR D-Dimer POC ABG pH POC ABG pCO2 POC ABG pO2 ABG pO2 ABG HCO3 ABG Base Excess ABG Hemoglobin Oxyhemoglobin Sodium Potassium Chloride Carbon Dioxide BUN Creatinine Glucose POC Glucose 114 H 114 H 114 H Calcium Phosphorus Magnesium ALT Alkaline Phosphatase Total Creatine Kinase CK-MB (CK-2) Rel Index Troponin T Albumin LDL Cholesterol Direct PTH Intact Salicylates Acetaminophen Crossmatch 04/15/19 04/15/19 04/16/19 11:50 23:39 05:41 WBC RBC Hgb Hct MCV MCH MCHC RDW Plt Count Lymph % (Auto) [place] % (Auto) Eos % (Auto) Baso % (Auto) Lymph # [place] # Eos # Baso # Seg Neutrophils % Seg Neuts % (Manual) Lymphocytes % (Manual) Eosinophils % (Manual) Seg Neutrophils # Lymphocytes # (Manual) Eosinophils # (Manual) PT INR D-Dimer POC ABG pH POC ABG pCO2 POC ABG pO2 ABG pO2 ABG HCO3 ABG Base Excess ABG Hemoglobin Oxyhemoglobin Sodium Potassium Chloride Carbon Dioxide BUN Creatinine Glucose POC Glucose 109 H 115 H 125 H Calcium Phosphorus Magnesium ALT Alkaline Phosphatase Total Creatine Kinase CK-MB (CK-2) Rel Index Troponin T Albumin LDL Cholesterol Direct PTH Intact Salicylates Acetaminophen Crossmatch 04/16/19 04/17/19 04/17/19 12:53 01:00 12:38 WBC RBC Hgb Hct MCV MCH MCHC RDW Plt Count Lymph % (Auto) [place] % (Auto) Eos % (Auto) Baso % (Auto) Lymph # [place] # Eos # Baso # Seg Neutrophils % Seg Neuts % (Manual) Lymphocytes % (Manual) Eosinophils % (Manual) Seg Neutrophils # Lymphocytes # (Manual) Eosinophils # (Manual) PT INR D-Dimer POC ABG pH POC ABG pCO2 POC ABG pO2 ABG pO2 ABG HCO3 ABG Base Excess ABG Hemoglobin Oxyhemoglobin Sodium Potassium Chloride Carbon Dioxide BUN Creatinine Glucose POC Glucose 121 H 127 H 159 H Calcium Phosphorus Magnesium ALT Alkaline Phosphatase Total Creatine Kinase CK-MB (CK-2) Rel Index Troponin T Albumin LDL Cholesterol Direct PTH Intact Salicylates Acetaminophen Crossmatch 04/17/19 04/17/19 04/18/19 18:27 23:36 07:19 WBC RBC 3.49 L Hgb 9.0 L Hct 29.9 L MCV MCH 26 L MCHC 30 L RDW 20.0 H Plt Count Lymph % (Auto) [place] % (Auto) Eos % (Auto) Baso % (Auto) Lymph # [place] # Eos # Baso # Seg Neutrophils % Seg Neuts % (Manual) Lymphocytes % (Manual) Eosinophils % (Manual) Seg Neutrophils # Lymphocytes # (Manual) Eosinophils # (Manual) PT INR D-Dimer POC ABG pH POC ABG pCO2 POC ABG pO2 ABG pO2 ABG HCO3 ABG Base Excess ABG Hemoglobin Oxyhemoglobin Sodium Potassium Chloride Carbon Dioxide BUN Creatinine Glucose POC Glucose 109 H 134 H Calcium Phosphorus Magnesium ALT Alkaline Phosphatase Total Creatine Kinase CK-MB (CK-2) Rel Index Troponin T Albumin LDL Cholesterol Direct PTH Intact Salicylates Acetaminophen Crossmatch 04/18/19 04/18/19 04/18/19 07:19 12:16 17:09 WBC RBC Hgb Hct MCV MCH MCHC RDW Plt Count Lymph % (Auto) [place] % (Auto) Eos % (Auto) Baso % (Auto) Lymph # [place] # Eos # Baso # Seg Neutrophils % Seg Neuts % (Manual) Lymphocytes % (Manual) Eosinophils % (Manual) Seg Neutrophils # Lymphocytes # (Manual) Eosinophils # (Manual) PT INR D-Dimer POC ABG pH POC ABG pCO2 POC ABG pO2 ABG pO2 ABG HCO3 ABG Base Excess ABG Hemoglobin Oxyhemoglobin Sodium Potassium Chloride Carbon Dioxide BUN 41 H Creatinine 2.9 H Glucose 122 H POC Glucose 125 H 131 H Calcium Phosphorus Magnesium ALT Alkaline Phosphatase Total Creatine Kinase CK-MB (CK-2) Rel Index Troponin T Albumin LDL Cholesterol Direct PTH Intact Salicylates Acetaminophen Crossmatch 04/18/19 04/19/19 04/19/19 23:57 05:55 11:35 WBC RBC Hgb Hct MCV MCH MCHC RDW Plt Count Lymph % (Auto) [place] % (Auto) Eos % (Auto) Baso % (Auto) Lymph # [place] # Eos # Baso # Seg Neutrophils % Seg Neuts % (Manual) Lymphocytes % (Manual) Eosinophils % (Manual) Seg Neutrophils # Lymphocytes # (Manual) Eosinophils # (Manual) PT INR D-Dimer POC ABG pH POC ABG pCO2 POC ABG pO2 ABG pO2 ABG HCO3 ABG Base Excess ABG Hemoglobin Oxyhemoglobin Sodium Potassium Chloride Carbon Dioxide BUN Creatinine Glucose POC Glucose 159 H 144 H 177 H Calcium Phosphorus Magnesium ALT Alkaline Phosphatase Total Creatine Kinase CK-MB (CK-2) Rel Index Troponin T Albumin LDL Cholesterol Direct PTH Intact Salicylates Acetaminophen Crossmatch 04/19/19 04/20/19 04/20/19 16:36 02:05 06:28 WBC RBC Hgb Hct MCV MCH MCHC RDW Plt Count Lymph % (Auto) [place] % (Auto) Eos % (Auto) Baso % (Auto) Lymph # [place] # Eos # Baso # Seg Neutrophils % Seg Neuts % (Manual) Lymphocytes % (Manual) Eosinophils % (Manual) Seg Neutrophils # Lymphocytes # (Manual) Eosinophils # (Manual) PT INR D-Dimer POC ABG pH POC ABG pCO2 POC ABG pO2 ABG pO2 ABG HCO3 ABG Base Excess ABG Hemoglobin Oxyhemoglobin Sodium Potassium Chloride Carbon Dioxide BUN Creatinine Glucose POC Glucose 134 H 142 H 132 H Calcium Phosphorus Magnesium ALT Alkaline Phosphatase Total Creatine Kinase CK-MB (CK-2) Rel Index Troponin T Albumin LDL Cholesterol Direct PTH Intact Salicylates Acetaminophen Crossmatch 04/20/19 04/20/19 04/21/19 12:37 23:34 05:59 WBC RBC Hgb Hct MCV MCH MCHC RDW Plt Count Lymph % (Auto) [place] % (Auto) Eos % (Auto) Baso % (Auto) Lymph # [place] # Eos # Baso # Seg Neutrophils % Seg Neuts % (Manual) Lymphocytes % (Manual) Eosinophils % (Manual) Seg Neutrophils # Lymphocytes # (Manual) Eosinophils # (Manual) PT INR D-Dimer POC ABG pH POC ABG pCO2 POC ABG pO2 ABG pO2 ABG HCO3 ABG Base Excess ABG Hemoglobin Oxyhemoglobin Sodium Potassium Chloride Carbon Dioxide BUN Creatinine Glucose POC Glucose 163 H 166 H 140 H Calcium Phosphorus Magnesium ALT Alkaline Phosphatase Total Creatine Kinase CK-MB (CK-2) Rel Index Troponin T Albumin LDL Cholesterol Direct PTH Intact Salicylates Acetaminophen Crossmatch 04/21/19 04/21/19 04/21/19 12:07 17:22 23:43 WBC RBC Hgb Hct MCV MCH MCHC RDW Plt Count Lymph % (Auto) [place] % (Auto) Eos % (Auto) Baso % (Auto) Lymph # [place] # Eos # Baso # Seg Neutrophils % Seg Neuts % (Manual) Lymphocytes % (Manual) Eosinophils % (Manual) Seg Neutrophils # Lymphocytes # (Manual) Eosinophils # (Manual) PT INR D-Dimer POC ABG pH POC ABG pCO2 POC ABG pO2 ABG pO2 ABG HCO3 ABG Base Excess ABG Hemoglobin Oxyhemoglobin Sodium Potassium Chloride Carbon Dioxide BUN Creatinine Glucose POC Glucose 135 H 141 H 138 H Calcium Phosphorus Magnesium ALT Alkaline Phosphatase Total Creatine Kinase CK-MB (CK-2) Rel Index Troponin T Albumin LDL Cholesterol Direct PTH Intact Salicylates Acetaminophen Crossmatch 04/22/19 04/22/19 04/22/19 05:12 18:24 23:49 WBC RBC Hgb Hct MCV MCH MCHC RDW Plt Count Lymph % (Auto) [place] % (Auto) Eos % (Auto) Baso % (Auto) Lymph # [place] # Eos # Baso # Seg Neutrophils % Seg Neuts % (Manual) Lymphocytes % (Manual) Eosinophils % (Manual) Seg Neutrophils # Lymphocytes # (Manual) Eosinophils # (Manual) PT INR D-Dimer POC ABG pH POC ABG pCO2 POC ABG pO2 ABG pO2 ABG HCO3 ABG Base Excess ABG Hemoglobin Oxyhemoglobin Sodium Potassium Chloride Carbon Dioxide BUN Creatinine Glucose POC Glucose 141 H 137 H 142 H Calcium Phosphorus Magnesium ALT Alkaline Phosphatase Total Creatine Kinase CK-MB (CK-2) Rel Index Troponin T Albumin LDL Cholesterol Direct PTH Intact Salicylates Acetaminophen Crossmatch 04/23/19 04/23/19 04/23/19 05:53 08:13 11:58 WBC RBC Hgb Hct MCV MCH MCHC RDW Plt Count Lymph % (Auto) [place] % (Auto) Eos % (Auto) Baso % (Auto) Lymph # [place] # Eos # Baso # Seg Neutrophils % Seg Neuts % (Manual) Lymphocytes % (Manual) Eosinophils % (Manual) Seg Neutrophils # Lymphocytes # (Manual) Eosinophils # (Manual) PT INR D-Dimer POC ABG pH POC ABG pCO2 POC ABG pO2 ABG pO2 ABG HCO3 ABG Base Excess ABG Hemoglobin Oxyhemoglobin Sodium Potassium Chloride Carbon Dioxide BUN Creatinine Glucose POC Glucose 132 H 154 H 165 H Calcium Phosphorus Magnesium ALT Alkaline Phosphatase Total Creatine Kinase CK-MB (CK-2) Rel Index Troponin T Albumin LDL Cholesterol Direct PTH Intact Salicylates Acetaminophen Crossmatch 04/23/19 04/24/19 04/24/19 16:28 00:28 07:00 WBC RBC Hgb Hct MCV MCH MCHC RDW Plt Count Lymph % (Auto) [place] % (Auto) Eos % (Auto) Baso % (Auto) Lymph # [place] # Eos # Baso # Seg Neutrophils % Seg Neuts % (Manual) Lymphocytes % (Manual) Eosinophils % (Manual) Seg Neutrophils # Lymphocytes # (Manual) Eosinophils # (Manual) PT INR D-Dimer POC ABG pH POC ABG pCO2 POC ABG pO2 ABG pO2 ABG HCO3 ABG Base Excess ABG Hemoglobin Oxyhemoglobin Sodium Potassium Chloride Carbon Dioxide BUN Creatinine Glucose POC Glucose 136 H 140 H 141 H Calcium Phosphorus Magnesium ALT Alkaline Phosphatase Total Creatine Kinase CK-MB (CK-2) Rel Index Troponin T Albumin LDL Cholesterol Direct PTH Intact Salicylates Acetaminophen Crossmatch 1004/24/19 04/25/19 12:38 18:57 00:38 WBC RBC Hgb Hct MCV MCH MCHC RDW Plt Count Lymph % (Auto) [place] % (Auto) Eos % (Auto) Baso % (Auto) Lymph # [place] # Eos # Baso # Seg Neutrophils % Seg Neuts % (Manual) Lymphocytes % (Manual) Eosinophils % (Manual) Seg Neutrophils # Lymphocytes # (Manual) Eosinophils # (Manual) PT INR D-Dimer POC ABG pH POC ABG pCO2 POC ABG pO2 ABG pO2 ABG HCO3 ABG Base Excess ABG Hemoglobin Oxyhemoglobin Sodium Potassium Chloride Carbon Dioxide BUN Creatinine Glucose POC Glucose 152 H 166 H 128 H Calcium Phosphorus Magnesium ALT Alkaline Phosphatase Total Creatine Kinase CK-MB (CK-2) Rel Index Troponin T Albumin LDL Cholesterol Direct PTH Intact Salicylates Acetaminophen Crossmatch 04/25/19 04/25/19 04/25/19 05:44 13:43 18:34 WBC RBC Hgb Hct MCV MCH MCHC RDW Plt Count Lymph % (Auto) [place] % (Auto) Eos % (Auto) Baso % (Auto) Lymph # [place] # Eos # Baso # Seg Neutrophils % Seg Neuts % (Manual) Lymphocytes % (Manual) Eosinophils % (Manual) Seg Neutrophils # Lymphocytes # (Manual) Eosinophils # (Manual) PT INR D-Dimer POC ABG pH POC ABG pCO2 POC ABG pO2 ABG pO2 ABG HCO3 ABG Base Excess ABG Hemoglobin Oxyhemoglobin Sodium Potassium Chloride Carbon Dioxide BUN Creatinine Glucose POC Glucose 153 H 186 H 124 H Calcium Phosphorus Magnesium ALT Alkaline Phosphatase Total Creatine Kinase CK-MB (CK-2) Rel Index Troponin T Albumin LDL Cholesterol Direct PTH Intact Salicylates Acetaminophen Crossmatch 04/26/19 04/26/19 04/26/19 00:59 05:52 10:12 WBC 11.5 H RBC 2.84 L Hgb 7.4 L Hct 23.3 L MCV 82 L MCH 26 L MCHC RDW 20.3 H Plt Count Lymph % (Auto) 7.5 L [place] % (Auto) 7.5 H Eos % (Auto) 5.3 H Baso % (Auto) Lymph # 0.9 L [place] # 0.9 H Eos # 0.6 H Baso # Seg Neutrophils % 79.2 H Seg Neuts % (Manual) Lymphocytes % (Manual) Eosinophils % (Manual) Seg Neutrophils # 9.1 H Lymphocytes # (Manual) Eosinophils # (Manual) PT INR D-Dimer POC ABG pH POC ABG pCO2 POC ABG pO2 ABG pO2 ABG HCO3 ABG Base Excess ABG Hemoglobin Oxyhemoglobin Sodium Potassium Chloride Carbon Dioxide BUN Creatinine Glucose POC Glucose 163 H 146 H Calcium Phosphorus Magnesium ALT Alkaline Phosphatase Total Creatine Kinase CK-MB (CK-2) Rel Index Troponin T Albumin LDL Cholesterol Direct PTH Intact Salicylates Acetaminophen Crossmatch 04/26/19 04/26/19 04/26/19 10:12 12:15 19:00 WBC RBC Hgb Hct MCV MCH MCHC RDW Plt Count Lymph % (Auto) [place] % (Auto) Eos % (Auto) Baso % (Auto) Lymph # [place] # Eos # Baso # Seg Neutrophils % Seg Neuts % (Manual) Lymphocytes % (Manual) Eosinophils % (Manual) Seg Neutrophils # Lymphocytes # (Manual) Eosinophils # (Manual) PT INR D-Dimer POC ABG pH POC ABG pCO2 POC ABG pO2 ABG pO2 ABG HCO3 ABG Base Excess ABG Hemoglobin Oxyhemoglobin Sodium 130 L Potassium Chloride 87.4 L Carbon Dioxide BUN 93 H Creatinine 4.2 H Glucose 140 H POC Glucose 155 H 179 H Calcium Phosphorus Magnesium ALT Alkaline Phosphatase Total Creatine Kinase CK-MB (CK-2) Rel Index Troponin T Albumin LDL Cholesterol Direct PTH Intact Salicylates Acetaminophen Crossmatch 04/27/19 04/27/19 04/27/19 00:23 06:34 17:13 WBC RBC Hgb Hct MCV MCH MCHC RDW Plt Count Lymph % (Auto) [place] % (Auto) Eos % (Auto) Baso % (Auto) Lymph # [place] # Eos # Baso # Seg Neutrophils % Seg Neuts % (Manual) Lymphocytes % (Manual) Eosinophils % (Manual) Seg Neutrophils # Lymphocytes # (Manual) Eosinophils # (Manual) PT INR D-Dimer POC ABG pH POC ABG pCO2 POC ABG pO2 ABG pO2 ABG HCO3 ABG Base Excess ABG Hemoglobin Oxyhemoglobin Sodium Potassium Chloride Carbon Dioxide BUN Creatinine Glucose POC Glucose 158 H 140 H 152 H Calcium Phosphorus Magnesium ALT Alkaline Phosphatase Total Creatine Kinase CK-MB (CK-2) Rel Index Troponin T Albumin LDL Cholesterol Direct PTH Intact Salicylates Acetaminophen Crossmatch 04/27/19 04/28/19 04/28/19 23:50 05:18 11:37 WBC RBC Hgb Hct MCV MCH MCHC RDW Plt Count Lymph % (Auto) [place] % (Auto) Eos % (Auto) Baso % (Auto) Lymph # [place] # Eos # Baso # Seg Neutrophils % Seg Neuts % (Manual) Lymphocytes % (Manual) Eosinophils % (Manual) Seg Neutrophils # Lymphocytes # (Manual) Eosinophils # (Manual) PT INR D-Dimer POC ABG pH POC ABG pCO2 POC ABG pO2 ABG pO2 ABG HCO3 ABG Base Excess ABG Hemoglobin Oxyhemoglobin Sodium Potassium Chloride Carbon Dioxide BUN Creatinine Glucose POC Glucose 160 H 145 H 177 H Calcium Phosphorus Magnesium ALT Alkaline Phosphatase Total Creatine Kinase CK-MB (CK-2) Rel Index Troponin T Albumin LDL Cholesterol Direct PTH Intact Salicylates Acetaminophen Crossmatch 04/28/19 04/28/19 04/29/19 18:31 23:47 05:50 WBC RBC Hgb Hct MCV MCH MCHC RDW Plt Count Lymph % (Auto) [place] % (Auto) Eos % (Auto) Baso % (Auto) Lymph # [place] # Eos # Baso # Seg Neutrophils % Seg Neuts % (Manual) Lymphocytes % (Manual) Eosinophils % (Manual) Seg Neutrophils # Lymphocytes # (Manual) Eosinophils # (Manual) PT INR D-Dimer POC ABG pH POC ABG pCO2 POC ABG pO2 ABG pO2 ABG HCO3 ABG Base Excess ABG Hemoglobin Oxyhemoglobin Sodium Potassium Chloride Carbon Dioxide BUN Creatinine Glucose POC Glucose 153 H 117 H 177 H Calcium Phosphorus Magnesium ALT Alkaline Phosphatase Total Creatine Kinase CK-MB (CK-2) Rel Index Troponin T Albumin LDL Cholesterol Direct PTH Intact Salicylates Acetaminophen Crossmatch 04/29/19 04/30/19 04/30/19 17:04 01:02 06:42 WBC RBC Hgb Hct MCV MCH MCHC RDW Plt Count Lymph % (Auto) [place] % (Auto) Eos % (Auto) Baso % (Auto) Lymph # [place] # Eos # Baso # Seg Neutrophils % Seg Neuts % (Manual) Lymphocytes % (Manual) Eosinophils % (Manual) Seg Neutrophils # Lymphocytes # (Manual) Eosinophils # (Manual) PT INR D-Dimer POC ABG pH POC ABG pCO2 POC ABG pO2 ABG pO2 ABG HCO3 ABG Base Excess ABG Hemoglobin Oxyhemoglobin Sodium Potassium Chloride Carbon Dioxide BUN Creatinine Glucose POC Glucose 205 H 143 H 145 H Calcium Phosphorus Magnesium ALT Alkaline Phosphatase Total Creatine Kinase CK-MB (CK-2) Rel Index Troponin T Albumin LDL Cholesterol Direct PTH Intact Salicylates Acetaminophen Crossmatch 04/30/19 04/30/19 04/30/19 11:31 18:12 23:38 WBC RBC Hgb Hct MCV MCH MCHC RDW Plt Count Lymph % (Auto) [place] % (Auto) Eos % (Auto) Baso % (Auto) Lymph # [place] # Eos # Baso # Seg Neutrophils % Seg Neuts % (Manual) Lymphocytes % (Manual) Eosinophils % (Manual) Seg Neutrophils # Lymphocytes # (Manual) Eosinophils # (Manual) PT INR D-Dimer POC ABG pH POC ABG pCO2 POC ABG pO2 ABG pO2 ABG HCO3 ABG Base Excess ABG Hemoglobin Oxyhemoglobin Sodium Potassium Chloride Carbon Dioxide BUN Creatinine Glucose POC Glucose 162 H 117 H 139 H Calcium Phosphorus Magnesium ALT Alkaline Phosphatase Total Creatine Kinase CK-MB (CK-2) Rel Index Troponin T Albumin LDL Cholesterol Direct PTH Intact Salicylates Acetaminophen Crossmatch 05/01/19 05/01/19 05/02/19 06:06 23:41 05:59 WBC RBC Hgb Hct MCV MCH MCHC RDW Plt Count Lymph % (Auto) [place] % (Auto) Eos % (Auto) Baso % (Auto) Lymph # [place] # Eos # Baso # Seg Neutrophils % Seg Neuts % (Manual) Lymphocytes % (Manual) Eosinophils % (Manual) Seg Neutrophils # Lymphocytes # (Manual) Eosinophils # (Manual) PT INR D-Dimer POC ABG pH POC ABG pCO2 POC ABG pO2 ABG pO2 ABG HCO3 ABG Base Excess ABG Hemoglobin Oxyhemoglobin Sodium Potassium Chloride Carbon Dioxide BUN Creatinine Glucose POC Glucose 150 H 140 H 130 H Calcium Phosphorus Magnesium ALT Alkaline Phosphatase Total Creatine Kinase CK-MB (CK-2) Rel Index Troponin T Albumin LDL Cholesterol Direct PTH Intact Salicylates Acetaminophen Crossmatch 05/02/19 05/02/19 05/03/19 11:55 18:10 00:15 WBC RBC Hgb Hct MCV MCH MCHC RDW Plt Count Lymph % (Auto) [place] % (Auto) Eos % (Auto) Baso % (Auto) Lymph # [place] # Eos # Baso # Seg Neutrophils % Seg Neuts % (Manual) Lymphocytes % (Manual) Eosinophils % (Manual) Seg Neutrophils # Lymphocytes # (Manual) Eosinophils # (Manual) PT INR D-Dimer POC ABG pH POC ABG pCO2 POC ABG pO2 ABG pO2 ABG HCO3 ABG Base Excess ABG Hemoglobin Oxyhemoglobin Sodium Potassium Chloride Carbon Dioxide BUN Creatinine Glucose POC Glucose 146 H 141 H 145 H Calcium Phosphorus Magnesium ALT Alkaline Phosphatase Total Creatine Kinase CK-MB (CK-2) Rel Index Troponin T Albumin LDL Cholesterol Direct PTH Intact Salicylates Acetaminophen Crossmatch 05/03/19 05/03/19 05/03/19 05:49 05:49 06:01 WBC RBC 2.84 L Hgb 7.2 L Hct 22.9 L MCV 81 L MCH 26 L MCHC RDW 20.6 H Plt Count 456 H Lymph % (Auto) 11.8 L [place] % (Auto) Eos % (Auto) 10.6 H Baso % (Auto) Lymph # 1.1 L [place] # Eos # 1.0 H Baso # Seg Neutrophils % 70.4 H Seg Neuts % (Manual) Lymphocytes % (Manual) Eosinophils % (Manual) Seg Neutrophils # Lymphocytes # (Manual) Eosinophils # (Manual) PT INR D-Dimer POC ABG pH POC ABG pCO2 POC ABG pO2 ABG pO2 ABG HCO3 ABG Base Excess ABG Hemoglobin Oxyhemoglobin Sodium Potassium Chloride 94.8 L Carbon Dioxide BUN 66 H Creatinine 3.6 H Glucose 129 H POC Glucose 135 H Calcium Phosphorus Magnesium ALT Alkaline Phosphatase Total Creatine Kinase CK-MB (CK-2) Rel Index Troponin T Albumin LDL Cholesterol Direct PTH Intact Salicylates Acetaminophen Crossmatch 05/03/19 05/03/19 05/04/19 11:04 18:40 00:06 WBC RBC Hgb Hct MCV MCH MCHC RDW Plt Count Lymph % (Auto) [place] % (Auto) Eos % (Auto) Baso % (Auto) Lymph # [place] # Eos # Baso # Seg Neutrophils % Seg Neuts % (Manual) Lymphocytes % (Manual) Eosinophils % (Manual) Seg Neutrophils # Lymphocytes # (Manual) Eosinophils # (Manual) PT INR D-Dimer POC ABG pH POC ABG pCO2 POC ABG pO2 ABG pO2 ABG HCO3 ABG Base Excess ABG Hemoglobin Oxyhemoglobin Sodium Potassium Chloride Carbon Dioxide BUN Creatinine Glucose POC Glucose 191 H 167 H 137 H Calcium Phosphorus Magnesium ALT Alkaline Phosphatase Total Creatine Kinase CK-MB (CK-2) Rel Index Troponin T Albumin LDL Cholesterol Direct PTH Intact Salicylates Acetaminophen Crossmatch 05/04/19 05/04/19 05/04/19 06:44 07:30 07:30 WBC 15.8 H RBC 2.74 L Hgb 6.7 L Hct 22.2 L MCV 81 L MCH 24 L MCHC 30 L RDW 20.4 H Plt Count 450 H Lymph % (Auto) 5.1 L [place] % (Auto) Eos % (Auto) Baso % (Auto) Lymph # 0.8 L [place] # Eos # 0.6 H Baso # Seg Neutrophils % 86.3 H Seg Neuts % (Manual) Lymphocytes % (Manual) Eosinophils % (Manual) Seg Neutrophils # 13.6 H Lymphocytes # (Manual) Eosinophils # (Manual) PT INR D-Dimer POC ABG pH POC ABG pCO2 POC ABG pO2 ABG pO2 ABG HCO3 ABG Base Excess ABG Hemoglobin Oxyhemoglobin Sodium Potassium Chloride 95.2 L Carbon Dioxide BUN 92 H Creatinine 4.8 H Glucose 139 H POC Glucose 153 H Calcium Phosphorus Magnesium ALT Alkaline Phosphatase Total Creatine Kinase CK-MB (CK-2) Rel Index Troponin T Albumin LDL Cholesterol Direct PTH Intact Salicylates Acetaminophen Crossmatch 05/04/19 05/04/19 05/05/19 12:55 16:31 01:02 WBC RBC Hgb Hct MCV MCH MCHC RDW Plt Count Lymph % (Auto) [place] % (Auto) Eos % (Auto) Baso % (Auto) Lymph # [place] # Eos # Baso # Seg Neutrophils % Seg Neuts % (Manual) Lymphocytes % (Manual) Eosinophils % (Manual) Seg Neutrophils # Lymphocytes # (Manual) Eosinophils # (Manual) PT INR D-Dimer POC ABG pH POC ABG pCO2 POC ABG pO2 ABG pO2 ABG HCO3 ABG Base Excess ABG Hemoglobin Oxyhemoglobin Sodium Potassium Chloride Carbon Dioxide BUN Creatinine Glucose POC Glucose 169 H 171 H Calcium Phosphorus Magnesium ALT Alkaline Phosphatase Total Creatine Kinase CK-MB (CK-2) Rel Index Troponin T Albumin LDL Cholesterol Direct PTH Intact Salicylates Acetaminophen Crossmatch See Detail 05/05/19 05/05/19 05/05/19 05:26 05:36 11:48 WBC 12.6 H RBC 2.73 L Hgb 6.9 L Hct 22.3 L MCV 82 L MCH 25 L MCHC 31 L RDW 21.0 H Plt Count Lymph % (Auto) 8.9 L [place] % (Auto) Eos % (Auto) Baso % (Auto) Lymph # 1.1 L [place] # 0.9 H Eos # Baso # Seg Neutrophils % 80.7 H Seg Neuts % (Manual) Lymphocytes % (Manual) Eosinophils % (Manual) Seg Neutrophils # 10.2 H Lymphocytes # (Manual) Eosinophils # (Manual) PT INR D-Dimer POC ABG pH POC ABG pCO2 POC ABG pO2 ABG pO2 ABG HCO3 ABG Base Excess ABG Hemoglobin Oxyhemoglobin Sodium Potassium Chloride Carbon Dioxide BUN Creatinine Glucose POC Glucose 153 H 173 H Calcium Phosphorus Magnesium ALT Alkaline Phosphatase Total Creatine Kinase CK-MB (CK-2) Rel Index Troponin T Albumin LDL Cholesterol Direct PTH Intact Salicylates Acetaminophen Crossmatch 05/05/19 05/06/19 05/06/19 16:42 02:24 06:12 WBC RBC Hgb Hct MCV MCH MCHC RDW Plt Count Lymph % (Auto) [place] % (Auto) Eos % (Auto) Baso % (Auto) Lymph # [place] # Eos # Baso # Seg Neutrophils % Seg Neuts % (Manual) Lymphocytes % (Manual) Eosinophils % (Manual) Seg Neutrophils # Lymphocytes # (Manual) Eosinophils # (Manual) PT INR D-Dimer POC ABG pH POC ABG pCO2 POC ABG pO2 ABG pO2 ABG HCO3 ABG Base Excess ABG Hemoglobin Oxyhemoglobin Sodium Potassium Chloride Carbon Dioxide BUN Creatinine Glucose POC Glucose 126 H 138 H 151 H Calcium Phosphorus Magnesium ALT Alkaline Phosphatase Total Creatine Kinase CK-MB (CK-2) Rel Index Troponin T Albumin LDL Cholesterol Direct PTH Intact Salicylates Acetaminophen Crossmatch 05/06/19 05/06/19 05/06/19 08:15 16:48 23:16 WBC 11.8 H RBC 2.72 L Hgb 6.7 L Hct 21.7 L MCV 80 L MCH 25 L MCHC 31 L RDW 20.9 H Plt Count Lymph % (Auto) [place] % (Auto) Eos % (Auto) Baso % (Auto) Lymph # [place] # Eos # Baso # Seg Neutrophils % Seg Neuts % (Manual) Lymphocytes % (Manual) Eosinophils % (Manual) Seg Neutrophils # Lymphocytes # (Manual) Eosinophils # (Manual) PT INR D-Dimer POC ABG pH POC ABG pCO2 POC ABG pO2 ABG pO2 ABG HCO3 ABG Base Excess ABG Hemoglobin Oxyhemoglobin Sodium Potassium Chloride Carbon Dioxide BUN Creatinine Glucose POC Glucose 153 H 143 H Calcium Phosphorus Magnesium ALT Alkaline Phosphatase Total Creatine Kinase CK-MB (CK-2) Rel Index Troponin T Albumin LDL Cholesterol Direct PTH Intact Salicylates Acetaminophen Crossmatch 05/07/19 05/07/19 05/07/19 06:00 06:30 12:33 WBC RBC 3.53 L Hgb 9.1 L Hct 28.6 L D MCV 81 L MCH 26 L MCHC RDW 19.1 H Plt Count Lymph % (Auto) 9.6 L [place] % (Auto) Eos % (Auto) 4.8 H Baso % (Auto) Lymph # 1.1 L [place] # Eos # 0.5 H Baso # Seg Neutrophils % 77.8 H Seg Neuts % (Manual) Lymphocytes % (Manual) Eosinophils % (Manual) Seg Neutrophils # 8.6 H Lymphocytes # (Manual) Eosinophils # (Manual) PT INR D-Dimer POC ABG pH POC ABG pCO2 POC ABG pO2 ABG pO2 ABG HCO3 ABG Base Excess ABG Hemoglobin Oxyhemoglobin Sodium Potassium Chloride Carbon Dioxide BUN Creatinine Glucose POC Glucose 122 H 140 H Calcium Phosphorus Magnesium ALT Alkaline Phosphatase Total Creatine Kinase CK-MB (CK-2) Rel Index Troponin T Albumin LDL Cholesterol Direct PTH Intact Salicylates Acetaminophen Crossmatch 05/07/19 05/07/19 05/08/19 16:41 23:55 05:10 WBC 11.6 H RBC 3.54 L Hgb 9.1 L Hct 29.1 L MCV 82 L MCH 26 L MCHC 31 L RDW 19.6 H Plt Count Lymph % (Auto) 6.6 L [place] % (Auto) Eos % (Auto) Baso % (Auto) 1.9 H Lymph # 0.8 L [place] # Eos # Baso # 0.2 H Seg Neutrophils % 82.6 H Seg Neuts % (Manual) Lymphocytes % (Manual) Eosinophils % (Manual) Seg Neutrophils # 9.6 H Lymphocytes # (Manual) Eosinophils # (Manual) PT INR D-Dimer POC ABG pH POC ABG pCO2 POC ABG pO2 ABG pO2 ABG HCO3 ABG Base Excess ABG Hemoglobin Oxyhemoglobin Sodium Potassium Chloride Carbon Dioxide BUN Creatinine Glucose POC Glucose 143 H 153 H Calcium Phosphorus Magnesium ALT Alkaline Phosphatase Total Creatine Kinase CK-MB (CK-2) Rel Index Troponin T Albumin LDL Cholesterol Direct PTH Intact Salicylates Acetaminophen Crossmatch 05/08/19 05/08/19 05/09/19 06:09 16:55 03:27 WBC RBC Hgb Hct MCV MCH MCHC RDW Plt Count Lymph % (Auto) [place] % (Auto) Eos % (Auto) Baso % (Auto) Lymph # [place] # Eos # Baso # Seg Neutrophils % Seg Neuts % (Manual) Lymphocytes % (Manual) Eosinophils % (Manual) Seg Neutrophils # Lymphocytes # (Manual) Eosinophils # (Manual) PT INR D-Dimer POC ABG pH POC ABG pCO2 POC ABG pO2 ABG pO2 ABG HCO3 ABG Base Excess ABG Hemoglobin Oxyhemoglobin Sodium Potassium Chloride Carbon Dioxide BUN Creatinine Glucose POC Glucose 204 H 196 H 175 H Calcium Phosphorus Magnesium ALT Alkaline Phosphatase Total Creatine Kinase CK-MB (CK-2) Rel Index Troponin T Albumin LDL Cholesterol Direct PTH Intact Salicylates Acetaminophen Crossmatch 05/09/19 05/09/19 05/09/19 06:00 11:00 12:41 WBC 12.0 H RBC Hgb 9.7 L Hct 30.2 L MCV 83 L MCH 26 L MCHC RDW 20.1 H Plt Count Lymph % (Auto) 7.4 L [place] % (Auto) 7.6 H Eos % (Auto) Baso % (Auto) Lymph # 0.9 L [place] # 0.9 H Eos # Baso # Seg Neutrophils % 80.7 H Seg Neuts % (Manual) Lymphocytes % (Manual) Eosinophils % (Manual) Seg Neutrophils # 9.7 H Lymphocytes # (Manual) Eosinophils # (Manual) PT INR D-Dimer POC ABG pH POC ABG pCO2 POC ABG pO2 ABG pO2 ABG HCO3 ABG Base Excess ABG Hemoglobin Oxyhemoglobin Sodium Potassium Chloride Carbon Dioxide BUN Creatinine Glucose POC Glucose 172 H 168 H Calcium Phosphorus Magnesium ALT Alkaline Phosphatase Total Creatine Kinase CK-MB (CK-2) Rel Index Troponin T Albumin LDL Cholesterol Direct PTH Intact Salicylates Acetaminophen Crossmatch 05/09/19 05/10/19 05/10/19 17:45 01:26 06:07 WBC RBC Hgb Hct MCV MCH MCHC RDW Plt Count Lymph % (Auto) [place] % (Auto) Eos % (Auto) Baso % (Auto) Lymph # [place] # Eos # Baso # Seg Neutrophils % Seg Neuts % (Manual) Lymphocytes % (Manual) Eosinophils % (Manual) Seg Neutrophils # Lymphocytes # (Manual) Eosinophils # (Manual) PT INR D-Dimer POC ABG pH POC ABG pCO2 POC ABG pO2 ABG pO2 ABG HCO3 ABG Base Excess ABG Hemoglobin Oxyhemoglobin Sodium Potassium Chloride Carbon Dioxide BUN Creatinine Glucose POC Glucose 167 H 174 H 179 H Calcium Phosphorus Magnesium ALT Alkaline Phosphatase Total Creatine Kinase CK-MB (CK-2) Rel Index Troponin T Albumin LDL Cholesterol Direct PTH Intact Salicylates Acetaminophen Crossmatch 05/10/19 05/10/19 05/10/19 06:45 12:31 17:18 WBC RBC Hgb Hct MCV MCH MCHC RDW Plt Count Lymph % (Auto) [place] % (Auto) Eos % (Auto) Baso % (Auto) Lymph # [place] # Eos # Baso # Seg Neutrophils % Seg Neuts % (Manual) Lymphocytes % (Manual) Eosinophils % (Manual) Seg Neutrophils # Lymphocytes # (Manual) Eosinophils # (Manual) PT INR D-Dimer POC ABG pH POC ABG pCO2 POC ABG pO2 ABG pO2 ABG HCO3 ABG Base Excess ABG Hemoglobin Oxyhemoglobin Sodium 134 L Potassium Chloride 90.2 L Carbon Dioxide BUN 82 H Creatinine 4.1 H Glucose 195 H POC Glucose 201 H 197 H Calcium Phosphorus Magnesium ALT Alkaline Phosphatase Total Creatine Kinase CK-MB (CK-2) Rel Index Troponin T Albumin LDL Cholesterol Direct PTH Intact Salicylates Acetaminophen Crossmatch 05/11/19 05/11/19 05/11/19 00:20 06:30 17:38 WBC RBC Hgb Hct MCV MCH MCHC RDW Plt Count Lymph % (Auto) [place] % (Auto) Eos % (Auto) Baso % (Auto) Lymph # [place] # Eos # Baso # Seg Neutrophils % Seg Neuts % (Manual) Lymphocytes % (Manual) Eosinophils % (Manual) Seg Neutrophils # Lymphocytes # (Manual) Eosinophils # (Manual) PT INR D-Dimer POC ABG pH POC ABG pCO2 POC ABG pO2 ABG pO2 ABG HCO3 ABG Base Excess ABG Hemoglobin Oxyhemoglobin Sodium Potassium Chloride Carbon Dioxide BUN Creatinine Glucose POC Glucose 131 H 148 H 198 H Calcium Phosphorus Magnesium ALT Alkaline Phosphatase Total Creatine Kinase CK-MB (CK-2) Rel Index Troponin T Albumin LDL Cholesterol Direct PTH Intact Salicylates Acetaminophen Crossmatch 05/12/19 05/12/19 05/12/19 00:44 06:13 07:15 WBC RBC 3.32 L Hgb 8.7 L Hct 27.8 L MCV MCH 26 L MCHC 31 L RDW 19.8 H Plt Count Lymph % (Auto) 6.9 L [place] % (Auto) Eos % (Auto) 6.5 H Baso % (Auto) Lymph # 0.7 L [place] # Eos # 0.6 H Baso # Seg Neutrophils % 78.6 H Seg Neuts % (Manual) Lymphocytes % (Manual) Eosinophils % (Manual) Seg Neutrophils # 7.8 H Lymphocytes # (Manual) Eosinophils # (Manual) PT INR D-Dimer POC ABG pH POC ABG pCO2 POC ABG pO2 ABG pO2 ABG HCO3 ABG Base Excess ABG Hemoglobin Oxyhemoglobin Sodium Potassium Chloride Carbon Dioxide BUN Creatinine Glucose POC Glucose 170 H 133 H Calcium Phosphorus Magnesium ALT Alkaline Phosphatase Total Creatine Kinase CK-MB (CK-2) Rel Index Troponin T Albumin LDL Cholesterol Direct PTH Intact Salicylates Acetaminophen Crossmatch 05/12/19 05/12/19 05/12/19 07:15 11:17 17:37 WBC RBC Hgb Hct MCV MCH MCHC RDW Plt Count Lymph % (Auto) [place] % (Auto) Eos % (Auto) Baso % (Auto) Lymph # [place] # Eos # Baso # Seg Neutrophils % Seg Neuts % (Manual) Lymphocytes % (Manual) Eosinophils % (Manual) Seg Neutrophils # Lymphocytes # (Manual) Eosinophils # (Manual) PT INR D-Dimer POC ABG pH POC ABG pCO2 POC ABG pO2 ABG pO2 ABG HCO3 ABG Base Excess ABG Hemoglobin Oxyhemoglobin Sodium 135 L Potassium Chloride 94.2 L Carbon Dioxide BUN 59 H Creatinine 3.4 H Glucose 134 H POC Glucose 132 H 165 H Calcium Phosphorus Magnesium ALT Alkaline Phosphatase Total Creatine Kinase CK-MB (CK-2) Rel Index Troponin T Albumin LDL Cholesterol Direct PTH Intact Salicylates Acetaminophen Crossmatch 05/13/19 05/13/19 05/13/19 00:15 05:44 16:00 WBC RBC Hgb Hct MCV MCH MCHC RDW Plt Count Lymph % (Auto) [place] % (Auto) Eos % (Auto) Baso % (Auto) Lymph # [place] # Eos # Baso # Seg Neutrophils % Seg Neuts % (Manual) Lymphocytes % (Manual) Eosinophils % (Manual) Seg Neutrophils # Lymphocytes # (Manual) Eosinophils # (Manual) PT INR D-Dimer POC ABG pH POC ABG pCO2 POC ABG pO2 ABG pO2 ABG HCO3 ABG Base Excess ABG Hemoglobin Oxyhemoglobin Sodium Potassium Chloride Carbon Dioxide BUN Creatinine Glucose POC Glucose 144 H 133 H 221 H Calcium Phosphorus Magnesium ALT Alkaline Phosphatase Total Creatine Kinase CK-MB (CK-2) Rel Index Troponin T Albumin LDL Cholesterol Direct PTH Intact Salicylates Acetaminophen Crossmatch 05/14/19 05/14/19 05/14/19 06:44 11:56 16:42 WBC RBC Hgb Hct MCV MCH MCHC RDW Plt Count Lymph % (Auto) [place] % (Auto) Eos % (Auto) Baso % (Auto) Lymph # [place] # Eos # Baso # Seg Neutrophils % Seg Neuts % (Manual) Lymphocytes % (Manual) Eosinophils % (Manual) Seg Neutrophils # Lymphocytes # (Manual) Eosinophils # (Manual) PT INR D-Dimer POC ABG pH POC ABG pCO2 POC ABG pO2 ABG pO2 ABG HCO3 ABG Base Excess ABG Hemoglobin Oxyhemoglobin Sodium Potassium Chloride Carbon Dioxide BUN Creatinine Glucose POC Glucose 187 H 141 H 183 H Calcium Phosphorus Magnesium ALT Alkaline Phosphatase Total Creatine Kinase CK-MB (CK-2) Rel Index Troponin T Albumin LDL Cholesterol Direct PTH Intact Salicylates Acetaminophen Crossmatch 05/15/19 05/15/19 05/15/19 00:11 05:55 18:46 WBC RBC Hgb Hct MCV MCH MCHC RDW Plt Count Lymph % (Auto) [place] % (Auto) Eos % (Auto) Baso % (Auto) Lymph # [place] # Eos # Baso # Seg Neutrophils % Seg Neuts % (Manual) Lymphocytes % (Manual) Eosinophils % (Manual) Seg Neutrophils # Lymphocytes # (Manual) Eosinophils # (Manual) PT INR D-Dimer POC ABG pH POC ABG pCO2 POC ABG pO2 ABG pO2 ABG HCO3 ABG Base Excess ABG Hemoglobin Oxyhemoglobin Sodium Potassium Chloride Carbon Dioxide BUN Creatinine Glucose POC Glucose 169 H 119 H 173 H Calcium Phosphorus Magnesium ALT Alkaline Phosphatase Total Creatine Kinase CK-MB (CK-2) Rel Index Troponin T Albumin LDL Cholesterol Direct PTH Intact Salicylates Acetaminophen Crossmatch 05/16/19 05/16/19 05/16/19 00:18 06:17 12:47 WBC RBC Hgb Hct MCV MCH MCHC RDW Plt Count Lymph % (Auto) [place] % (Auto) Eos % (Auto) Baso % (Auto) Lymph # [place] # Eos # Baso # Seg Neutrophils % Seg Neuts % (Manual) Lymphocytes % (Manual) Eosinophils % (Manual) Seg Neutrophils # Lymphocytes # (Manual) Eosinophils # (Manual) PT INR D-Dimer POC ABG pH POC ABG pCO2 POC ABG pO2 ABG pO2 ABG HCO3 ABG Base Excess ABG Hemoglobin Oxyhemoglobin Sodium Potassium Chloride Carbon Dioxide BUN Creatinine Glucose POC Glucose 201 H 149 H 207 H Calcium Phosphorus Magnesium ALT Alkaline Phosphatase Total Creatine Kinase CK-MB (CK-2) Rel Index Troponin T Albumin LDL Cholesterol Direct PTH Intact Salicylates Acetaminophen Crossmatch 05/16/19 05/17/19 05/17/19 17:48 00:01 06:26 WBC RBC Hgb Hct MCV MCH MCHC RDW Plt Count Lymph % (Auto) [place] % (Auto) Eos % (Auto) Baso % (Auto) Lymph # [place] # Eos # Baso # Seg Neutrophils % Seg Neuts % (Manual) Lymphocytes % (Manual) Eosinophils % (Manual) Seg Neutrophils # Lymphocytes # (Manual) Eosinophils # (Manual) PT INR D-Dimer POC ABG pH POC ABG pCO2 POC ABG pO2 ABG pO2 ABG HCO3 ABG Base Excess ABG Hemoglobin Oxyhemoglobin Sodium Potassium Chloride Carbon Dioxide BUN Creatinine Glucose POC Glucose 183 H 176 H 177 H Calcium Phosphorus Magnesium ALT Alkaline Phosphatase Total Creatine Kinase CK-MB (CK-2) Rel Index Troponin T Albumin LDL Cholesterol Direct PTH Intact Salicylates Acetaminophen Crossmatch 05/17/19 05/17/19 05/18/19 12:19 17:45 00:30 WBC RBC Hgb Hct MCV MCH MCHC RDW Plt Count Lymph % (Auto) [place] % (Auto) Eos % (Auto) Baso % (Auto) Lymph # [place] # Eos # Baso # Seg Neutrophils % Seg Neuts % (Manual) Lymphocytes % (Manual) Eosinophils % (Manual) Seg Neutrophils # Lymphocytes # (Manual) Eosinophils # (Manual) PT INR D-Dimer POC ABG pH POC ABG pCO2 POC ABG pO2 ABG pO2 ABG HCO3 ABG Base Excess ABG Hemoglobin Oxyhemoglobin Sodium Potassium Chloride Carbon Dioxide BUN Creatinine Glucose POC Glucose 174 H 171 H 181 H Calcium Phosphorus Magnesium ALT Alkaline Phosphatase Total Creatine Kinase CK-MB (CK-2) Rel Index Troponin T Albumin LDL Cholesterol Direct PTH Intact Salicylates Acetaminophen Crossmatch 05/18/19 06:18 WBC RBC Hgb Hct MCV MCH MCHC RDW Plt Count Lymph % (Auto) [place] % (Auto) Eos % (Auto) Baso % (Auto) Lymph # [place] # Eos # Baso # Seg Neutrophils % Seg Neuts % (Manual) Lymphocytes % (Manual) Eosinophils % (Manual) Seg Neutrophils # Lymphocytes # (Manual) Eosinophils # (Manual) PT INR D-Dimer POC ABG pH POC ABG pCO2 POC ABG pO2 ABG pO2 ABG HCO3 ABG Base Excess ABG Hemoglobin Oxyhemoglobin Sodium Potassium Chloride Carbon Dioxide BUN Creatinine Glucose POC Glucose 165 H Calcium Phosphorus Magnesium ALT Alkaline Phosphatase Total Creatine Kinase CK-MB (CK-2) Rel Index Troponin T Albumin LDL Cholesterol Direct PTH Intact Salicylates Acetaminophen Crossmatch
--- NOTE | 2019-05-18 18:45 | Progress Note ---
Assessment and Plan Assessment: * End stage renal disease (outpatient TTS schedule) * Acute hypoxic respiratory failure s/p trach * s/p KEON pneumonia --Sputum cx: MDR Acinetobacter * Cardiomyopathy - EF 35-40% * Atrial fibrillation * History of CVA * Anemia secondary to ESRD * Secondary hyperparathyroidism Plan * HD today - UF as tolerated * Continue HD MWF via [facility] AVG * Nutrition per primary team * Dose medications for renal function * Epogen 20k TIW * Overall prognosis remains poor; will continue to follow for ESRD needs while inpatient Subjective Date of service: 05/18/19 Principal diagnosis: Respiratory failure, acute on chronic systolic HF, ESRD Interval history: Patient seen in the AM on dialysis. No acute events overnight Objective - Vital Signs Vital signs: Vital Signs - 12hr 05/18/19 05/18/19 05/18/19 07:50 09:15 09:30 Temperature 99.8 F H Pulse Rate 110 H 110 H Pulse Rate [ 113 H Anterior Bilateral Throughout] Respiratory 16 Rate Respiratory 17 Rate [Anterior Bilateral Throughout] Blood Pressure 111/66 119/66 O2 Sat by Pulse Oximetry O2 Sat by Pulse Oximetry [ Assessment] 05/18/19 05/18/19 05/18/19 09:45 10:00 10:15 Temperature Pulse Rate 113 H 117 H 119 H Pulse Rate [ Anterior Bilateral Throughout] Respiratory 18 Rate Respiratory Rate [Anterior Bilateral Throughout] Blood Pressure 111/67 117/67 109/58 O2 Sat by Pulse 98 Oximetry O2 Sat by Pulse Oximetry [ Assessment] 05/18/19 05/18/19 05/18/19 10:30 10:31 10:45 Temperature Pulse Rate 118 H 115 H Pulse Rate [ Anterior Bilateral Throughout] Respiratory Rate Respiratory Rate [Anterior Bilateral Throughout] Blood Pressure 86/57 89/59 O2 Sat by Pulse Oximetry O2 Sat by Pulse 98 Oximetry [ Assessment] 05/18/19 05/18/19 05/18/19 10:56 11:15 11:30 Temperature Pulse Rate 117 H 114 H 115 H Pulse Rate [ Anterior Bilateral Throughout] Respiratory Rate Respiratory Rate [Anterior Bilateral Throughout] Blood Pressure 84/60 91/60 87/56 O2 Sat by Pulse Oximetry O2 Sat by Pulse Oximetry [ Assessment] 05/18/19 05/18/19 05/18/19 11:45 12:00 12:15 Temperature Pulse Rate 114 H 114 H 113 H Pulse Rate [ Anterior Bilateral Throughout] Respiratory Rate Respiratory Rate [Anterior Bilateral Throughout] Blood Pressure 88/59 91/61 90/65 O2 Sat by Pulse Oximetry O2 Sat by Pulse Oximetry [ Assessment] 05/18/19 05/18/19 05/18/19 12:30 12:45 13:00 Temperature Pulse Rate 65 110 H 110 H Pulse Rate [ Anterior Bilateral Throughout] Respiratory Rate Respiratory Rate [Anterior Bilateral Throughout] Blood Pressure 91/44 91/56 103/51 O2 Sat by Pulse Oximetry O2 Sat by Pulse Oximetry [ Assessment] 05/18/19 05/18/19 13:15 14:19 Temperature 99.5 F Pulse Rate 106 H Pulse Rate [ 103 H Anterior Bilateral Throughout] Respiratory 16 Rate Respiratory 18 Rate [Anterior Bilateral Throughout] Blood Pressure 111/66 O2 Sat by Pulse Oximetry O2 Sat by Pulse Oximetry [ Assessment] - General Appearance General appearance: chronically ill EENT: ATNC Neck: other (trach) Respiratory: Present: Decreased Breath Sounds Cardiology: regular, S1S2 Gastrointestinal: normal, no tenderness, no distended Integumentary: warm and dry Musculoskeletal: other (no edema) - Lab 05/19/19 01:00 05/19/19 01:00 Most recent lab results ABG pH 7.424 pH Units (7.350-7.450) 03/19/19 04:23 ABG pCO2 48.0 mm Hg 03/19/19 04:23 ABG pO2 78.3 mm Hg (80.0-90.0) L 03/19/19 04:23 ABG HCO3 30.7 mmol/L (20.0-26.0) H 03/19/19 04:23 ABG O2 Saturation 97.0 % (95.0-99.0) 03/19/19 04:23 Calcium 9.5 mg/dL (8.4-10.2) 05/12/19 07:15 Phosphorus 4.30 mg/dL (2.5-4.5) D 03/31/19 10:26 Magnesium 2.70 mg/dL (1.7-2.3) H 03/30/19 10:13 Medications & Allergies - Medications Allergies/Adverse Reactions: Allergies haloperidol [From Haldol] Adverse Reaction (Verified 03/13/18 12:10) Unknown haloperidol lactate [From Haldol] Adverse Reaction (Verified 03/13/18 12:10) Unknown Home Medications: Home Medications Medication Instructions Recorded Confirmed Last Taken Type risperiDONE [RisperDAL] 1 mg PO QAM 03/13/18 02/21/19 Unknown History Sertraline [Zoloft] 100 mg PO QDAY 08/26/18 02/21/19 Unknown History Polyethylene Glycol 3350 [Miralax 17 gm PO QDAY #30 packet 11/05/18 02/21/19 Unknown Rx 3350] Aspirin EC [Halfprin EC] 81 mg PO DAILY #30 11/19/18 02/21/19 Unknown Rx Docusate Sodium [Colace CAP] 100 mg PO BID #60 11/19/18 02/21/19 Unknown Rx Folic Acid [Folvite] 1 mg PO DAILY #30 tab 11/19/18 02/21/19 Unknown Rx Famotidine [Pepcid] 20 mg PO DAILY tablet 12/08/18 02/21/19 Unknown Rx Gabapentin 100 mg PO QHS capsule 12/08/18 02/21/19 Unknown Rx Metoprolol [Lopressor TAB] 50 mg PO BID 30 Days tablet 12/08/18 02/21/19 Unknown Rx Sevelamer Carbonate [Renvela] 800 mg PO TIDWM tablet 12/08/18 02/21/19 Unknown Rx hydrALAZINE [Apresoline TAB] 100 mg PO Q8HR #120 tablet 12/08/18 02/21/19 Unknown Rx Acetaminophen [Acetaminophen TAB] 650 mg PO Q12H PRN 12/15/18 02/21/19 Unknown History Glucagon,Human Recombinant 1 mg IJ Q15MIN PRN 12/15/18 02/21/19 Unknown History [Glucagon Emergency Kit] Insulin Aspart [NovoLOG 100 See Protocol SQ QWEEK 12/15/18 02/21/19 Unknown History UNITS/ML VIAL] Active Medications: Generic Name Dose Route Start Last Admin Trade Name Freq PRN Reason Stop Dose Admin Albuterol/Ipratropium 1 ampul 02/24/19 20:00 05/18/19 14:17 Duoneb *Not For Prn Use* IH 1 ampul TIDRT SANCHEZ Administration Lipase/Protease/Amylase 1 each 04/10/19 15:16 Pancrejewel Barrientos 10,500 Unit FEEDTUBE PRN PRN For Clogged Feeding Tube Epoetin Solitario 20,000 unit 03/24/19 11:17 05/15/19 12:01 Procrit IV 20,000 unit UMA PRN Administration hemodialysis Famotidine 20 mg 02/23/19 10:00 05/18/19 09:03 Pepcid PO 20 mg DAILY SANCHEZ Administration Sodium Chloride 100 mls @ 999 mls/hr 05/13/19 12:45 Nacl 0.9% IV UMA PRN Hypotension Insulin Human Regular 0 units 02/26/19 12:00 05/18/19 17:30 Humulin R SUB-Q Not Given Q6HR [facility] Protocol Metoprolol Tartrate 2.5 mg 02/28/19 12:06 03/15/19 05:15 Lopressor IV 2.5 mg Q4HR PRN Administration Tachycardia Risperidone 1 mg 02/25/19 13:00 05/18/19 09:03 Risperdal PO 1 mg DAILY SANCHEZ Administration Sertraline HCl 100 mg 02/25/19 13:00 05/18/19 09:03 Zoloft PO 100 mg DAILY SANCHEZ Administration Simple Syrup 15 ml 04/10/19 15:16 Simple Syrup FEEDTUBE PRN PRN Hypoglycemia Simple Syrup 30 ml 04/10/19 15:16 Simple Syrup FEEDTUBE PRN PRN Hypoglycemia Sodium Bicarbonate 325 mg 04/10/19 15:16 Sodium Bicarbonate FEEDTUBE PRN PRN For Clogged Feeding Tube Sodium Hypochlorite 1 applic 04/01/19 13:00 05/18/19 09:04 Dakin's Half Strength TP 1 applicatio BID SANCHEZ Administration
[2019-05-19] MEDS: ACETAMINOPHEN 325 MG TAB PO PRN ×2 (00:11→10:55)
[2019-05-19] MEDS: INSULIN REGULAR, HUMAN 100 UNITS/1 ML SUB-Q SCH ×4 (00:25→18:46)
--- NOTE | 2019-05-19 00:25 | XRay Report ---
CHEST 1 VIEW 2355 INDICATION / CLINICAL INFORMATION: High temp. COMPARISON: 04/20/2019 FINDINGS: SUPPORT DEVICES: Stable HEART / MEDIASTINUM: Stable LUNGS / PLEURA: Increased interstitial markings are similar to prior study. No significant superimpos ed acute infiltrate is seen. No pneumothorax. ADDITIONAL FINDINGS: No significant additional findings. IMPRESSION: No significant changes Signer Name: Ashkan Ochoa MD Signed: 05/19/2019 12:21 AM Workstation Name: [id number]
[2019-05-19 01:11] LABS: Hematocrit 25.9 % (35.5-45.6); Hemoglobin 7.9 gm/dl (11.8-15.2); Mean Corpuscular HGB Conc 31 % (32-34); Mean Corpuscular Volume 83 fl (84-94); Platelet Count 386 K/mm3 (140-440); Red Blood Count 3.12 M/mm3 (3.65-5.03)
[2019-05-19 01:18] LABS: Red Cell Distribution Width 21.1 % (13.2-15.2)
[2019-05-19 01:26] LABS: Calcium 9.5 mg/dL (8.4-10.2)
--- NOTE | 2019-05-19 08:22 | Progress Note ---
Assessment and Plan Assessment and plan: Patient is a 63-year-old -[place] man from [facility] with a plethora of co-morbidities including blindness, CVA, CHF, PPM/ICD, loop recorder since 2012 that is MRI compatible, IDDM type 2, sepsis left foot ulcer, afib, ESRD with complications on HD TTS, hypertension, AOCD and GERD who presented to the ED with hypotensive after intubation in the emergency room., diagnosed with fluid overload, pleural effusion. Patient has had recurrent admission in the hospital for similar reason and was recently discharged from the hospital following treatment of Severe Sepsis due to Necrotizing Unstagable sacral decubitus ulcer with ostemomylitis, expected to complete abx on discharge till 02/16/19. Fever, ID consult Trach and peg done HR control improved with change in BB. Acute respiratory failure on mechanical ventilator >96 hrs Trach placed on 03/03/19 Pulm consult appreciated weaning trial VAP BUNDLE ASPIRATION BUNDLE Continue T-piece Finished therapy for Acinetobacter Acute pulmonary edema, fluid overload on CXR repeat xray intermittently Dialysis Necrotizing Unstagable sacral decubitus ulcer with ostemomyelitis Wound care, Dilated CMP Cardiomyiopathy EF 35-40% Continue diuresis PPM/ICD Acute encephalopathy, probably metabolic or toxic Continues on Mechanical ventilator. ESRD on hemodialysis nephrology following Vascular eval. done re: LUE AV graft, see note Bilateral pleural effusions Anticipate improvement with Permanent atrial fibrillation and flutter Not on anticoagulation because of anemia thrombocytopenia Change noted to BB agent to IV. Diabetes mellitus type 2 Fingerstick Q4h NSTEMI type 2 Cardiology following Schizophrenia continue home meds Legally blind supportive care hypertension Monitor BP Hypokalemia resolved Pulmonary hypertension by history Dysphagia s/p PEG tube Severe malnutrition/hypoalbuminemia with FTT: 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, tobacco prevention health educator following PEG placed on 01/02/19 Decubitus ulcer s/;p colostomy wound care consult History of sacral osteomyelitis and LE ulcers Completed Antibiotics Place on contact isolation for ESBL Klebsiella pneumonia on wound culture 01/02/19 h/o Peripheral neuropathy: Continue gabapentin Anemia of chronic disease -s/p total of 8 units PRBC, follow cbc- no occult GI bleed noted. -Pt is s/p x1 DDVAP RUL atelectasis, nebs as needed DVT prophylaxis Lovenox DNR poor prognosis Disposition: Awaiting on HD setup History Interval history: had fevers remains demented no vomiting, no agitation, no seizures Hospitalist Physical - Physical exam Narrative exam: Constitutional: no acute distress, opens eyes, says hello Eyes: non-icteric ENT: oropharynx moist Neck: supple Effort: normal Ascultation: Bilateral: other (coarse BS bilaterally) Percussion: Bilateral: not dull Cardiovascular: regular rate and rhythm (no mrg) Gastrointestinal: normoactive bowel sounds, soft, non-tender, non-distended, other (ostomy in place, brown stool) Extremities: no cyanosis, no edema, pink and warm Neurologic: other (mild weakness LUE, o/w nonfocal), demented Psychiatric: other (unable to assess) SKIN; Left 5th finger, stage 4 pressure ulcer,Left heel, deep tissue injury, Sacrum, stage 4 pressure ulcer POA - Constitutional Vitals: Temp Pulse Resp BP Pulse Ox 97.7 F 102 H 18 93/51 100 05/19/19 07:26 05/19/19 07:26 05/19/19 07:26 05/19/19 07:26 05/19/19 07:26 General appearance: Present: no acute distress, other (T peace). Absent: well- nourished Results - Labs CBC & Chem 7: 05/19/19 01:00 05/19/19 01:00 Labs: Laboratory Last Values WBC 11.6 K/mm3 (4.5-11.0) H 05/19/19 01:00 RBC 3.12 M/mm3 (3.65-5.03) L 05/19/19 01:00 Hgb 7.9 gm/dl (11.8-15.2) L 05/19/19 01:00 Hct 25.9 % (35.5-45.6) L 05/19/19 01:00 MCV 83 fl (84-94) L 05/19/19 01:00 MCH 25 pg (28-32) L 05/19/19 01:00 MCHC 31 % (32-34) L 05/19/19 01:00 RDW 21.1 % (13.2-15.2) H 05/19/19 01:00 Plt Count 386 K/mm3 (140-440) 05/19/19 01:00 Lymph % (Auto) 6.9 % (13.4-35.0) L 05/12/19 07:15 [place] % (Auto) 7.3 % (0.0-7.3) 05/12/19 07:15 Eos % (Auto) 6.5 % (0.0-4.3) H 05/12/19 07:15 Baso % (Auto) 0.7 % (0.0-1.8) 05/12/19 07:15 Lymph # 0.7 K/mm3 (1.2-5.4) L 05/12/19 07:15 [place] # 0.7 K/mm3 (0.0-0.8) 05/12/19 07:15 Eos # 0.6 K/mm3 (0.0-0.4) H 05/12/19 07:15 Baso # 0.1 K/mm3 (0.0-0.1) 05/12/19 07:15 Add Manual Diff Complete 03/21/19 06:30 Total Counted 100 03/21/19 06:30 Seg Neutrophils % 78.6 % (40.0-70.0) H 05/12/19 07:15 Seg Neuts % (Manual) 81.0 % (40.0-70.0) H 03/21/19 06:30 Band Neutrophils % 0 % 03/21/19 06:30 Lymphocytes % (Manual) 8.0 % (13.4-35.0) L 03/21/19 06:30 Reactive Lymphs % (Man) 0 % 03/21/19 06:30 Monocytes % (Manual) 1.0 % (0.0-7.3) 03/21/19 06:30 Eosinophils % (Manual) 8.0 % (0.0-4.3) H 03/21/19 06:30 Basophils % (Manual) 1.0 % (0.0-1.8) 03/21/19 06:30 Metamyelocytes % 1.0 % 03/21/19 06:30 Myelocytes % 0 % 03/21/19 06:30 Promyelocytes % 0 % 03/21/19 06:30 Blast Cells % 0 % 03/21/19 06:30 Nucleated RBC % Not Reportable 03/21/19 06:30 Seg Neutrophils # 7.8 K/mm3 (1.8-7.7) H 05/12/19 07:15 Seg Neutrophils # Man 6.7 K/mm3 (1.8-7.7) 03/21/19 06:30 Band Neutrophils # 0.0 K/mm3 03/21/19 06:30 Lymphocytes # (Manual) 0.7 K/mm3 (1.2-5.4) L 03/21/19 06:30 Abs React Lymphs (Man) 0.0 K/mm3 03/21/19 06:30 Monocytes # (Manual) 0.1 K/mm3 (0.0-0.8) 03/21/19 06:30 Eosinophils # (Manual) 0.7 K/mm3 (0.0-0.4) H 03/21/19 06:30 Basophils # (Manual) 0.1 K/mm3 (0.0-0.1) 03/21/19 06:30 Metamyelocytes # 0.1 K/mm3 03/21/19 06:30 Myelocytes # 0.0 K/mm3 03/21/19 06:30 Promyelocytes # 0.0 K/mm3 03/21/19 06:30 Blast Cells # 0.0 K/mm3 03/21/19 06:30 WBC Morphology Not Reportable 03/21/19 06:30 Hypersegmented Neuts Not Reportable 03/21/19 06:30 Hyposegmented Neuts Not Reportable 03/21/19 06:30 Hypogranular Neuts Not Reportable 03/21/19 06:30 Smudge Cells Not Reportable 03/21/19 06:30 Toxic Granulation Not Reportable 03/21/19 06:30 Toxic Vacuolation Not Reportable 03/21/19 06:30 Dohle Bodies Not Reportable 03/21/19 06:30 Pelger-Huet Anomaly Not Reportable 03/21/19 06:30 Tramaine Rods Not Reportable 03/21/19 06:30 Platelet Estimate Consistent w auto 03/21/19 06:30 Clumped Platelets Not Reportable 03/21/19 06:30 Plt Clumps, EDTA Not Reportable 03/21/19 06:30 Large Platelets Not Reportable 03/21/19 06:30 Giant Platelets Not Reportable 03/21/19 06:30 Platelet Satelliting Not Reportable 03/21/19 06:30 Plt Morphology Comment Not Reportable 03/21/19 06:30 RBC Morphology Not Reportable 03/21/19 06:30 Dimorphic RBCs Not Reportable 03/21/19 06:30 Polychromasia Not Reportable 03/21/19 06:30 Hypochromasia Few 03/21/19 06:30 Poikilocytosis Few 03/21/19 06:30 Anisocytosis Few 03/21/19 06:30 Microcytosis Not Reportable 03/21/19 06:30 Macrocytosis Not Reportable 03/21/19 06:30 Spherocytes Not Reportable 03/21/19 06:30 Pappenheimer Bodies Not Reportable 03/21/19 06:30 Sickle Cells Not Reportable 03/21/19 06:30 Target Cells 1+ 03/21/19 06:30 Tear Drop Cells Not Reportable 03/21/19 06:30 Ovalocytes Few 03/21/19 06:30 Helmet Cells Not Reportable 03/21/19 06:30 Zhou-[place] Bodies Not Reportable 03/21/19 06:30 Zortman Rings Not Reportable 03/21/19 06:30 Snyder Cells Not Reportable 03/21/19 06:30 Bite Cells Not Reportable 03/21/19 06:30 Crenated Cell Not Reportable 03/21/19 06:30 Elliptocytes Not Reportable 03/21/19 06:30 Acanthocytes (Spur) Not Reportable 03/21/19 06:30 Rouleaux Not Reportable 03/21/19 06:30 Hemoglobin C Crystals Not Reportable 03/21/19 06:30 Schistocytes Not Reportable 03/21/19 06:30 Malaria parasites Not Reportable 03/21/19 06:30 Jose Juan Bodies Not Reportable 03/21/19 06:30 Hem Pathologist Commnt No 03/21/19 06:30 PT 16.3 Sec. (12.2-14.9) H 03/01/19 09:39 INR 1.35 (0.87-1.13) H 03/01/19 09:39 APTT 33.7 Sec. (24.2-36.6) 02/21/19 18:30 D-Dimer 2987.82 ng/mlDDU (0-234) H 02/22/19 05:54 POC ABG pH 7.510 (7.35-7.45) H 03/18/19 06:38 ABG pH 7.424 pH Units (7.350-7.450) 03/19/19 04:23 POC ABG pCO2 38.9 (35-45) 03/18/19 06:38 ABG pCO2 48.0 mm Hg 03/19/19 04:23 POC ABG pO2 164 (80-105) H 03/18/19 06:38 ABG pO2 78.3 mm Hg (80.0-90.0) L 03/19/19 04:23 POC ABG HCO3 31.0 (22-26 mml/L) 03/18/19 06:38 ABG HCO3 30.7 mmol/L (20.0-26.0) H 03/19/19 04:23 POC ABG Total CO2 32 (23-27mmol/L) 03/18/19 06:38 POC ABG O2 Sat 100 03/18/19 06:38 ABG O2 Saturation 97.0 % (95.0-99.0) 03/19/19 04:23 ABG O2 Content 7.9 (0.0-44) 03/19/19 04:23 POC ABG Base Excess 8 ((-2) - (+3)mmol/L) 03/18/19 06:38 ABG Base Excess 5.8 mmol/L (-2.0-3.0) H 03/19/19 04:23 ABG Hemoglobin 5.8 gm/dl (14.0-18.0) L 03/19/19 04:23 ABG Carboxyhemoglobin 2.0 % (0.0-5.0) 03/19/19 04:23 ABG Methemoglobin 0.4 % (0.0-1.5) 03/19/19 04:23 Oxyhemoglobin 94.6 % (95.0-99.0) L 03/19/19 04:23 FiO2 35 % 03/19/19 04:23 Sodium 135 mmol/L (137-145) L 05/19/19 01:00 Potassium 3.9 mmol/L (3.6-5.0) 05/19/19 01:00 Chloride 93.6 mmol/L (98-107) L 05/19/19 01:00 Carbon Dioxide 29 mmol/L (22-30) 05/19/19 01:00 Anion Gap 16 mmol/L 05/19/19 01:00 BUN 64 mg/dL (9-20) H 05/19/19 01:00 Creatinine 2.8 mg/dL (0.8-1.5) H 05/19/19 01:00 Estimated GFR 28 ml/min 05/19/19 01:00 BUN/Creatinine Ratio 23 % 05/19/19 01:00 Glucose 194 mg/dL (75-100) H 05/19/19 01:00 POC Glucose 176 (70-105) H 05/19/19 05:15 Lactic Acid 1.00 mmol/L (0.7-2.0) 02/21/19 20:58 Calcium 9.5 mg/dL (8.4-10.2) 05/19/19 01:00 Phosphorus 4.30 mg/dL (2.5-4.5) D 03/31/19 10:26 Magnesium 2.70 mg/dL (1.7-2.3) H 03/30/19 10:13 Total Bilirubin 0.20 mg/dL (0.1-1.2) 03/30/19 10:13 AST 16 units/L (5-40) 03/30/19 10:13 ALT 11 units/L (7-56) 03/30/19 10:13 Alkaline Phosphatase 185 units/L (35-129) H 03/30/19 10:13 Ammonia 28.0 umol/L (25-60) 02/21/19 20:04 Total Creatine Kinase 64 units/L (55-170) 02/22/19 03:42 CK-MB (CK-2) 3.7 ng/mL (0.0-4.0) 02/22/19 03:42 CK-MB (CK-2) Rel Index 5.7 (0-4) H 02/22/19 03:42 Troponin T 0.193 ng/mL (0.00-0.029) H* 02/22/19 03:42 Total Protein 6.9 g/dL (6.3-8.2) 03/30/19 10:13 Albumin 2.6 g/dL (3.9-5) L 03/30/19 10:13 Albumin/Globulin Ratio 0.6 % 03/30/19 10:13 Triglycerides 51 mg/dL (2-149) 02/21/19 18:30 Cholesterol 82 mg/dL (50-199) 02/21/19 18:30 LDL Cholesterol Direct 36 mg/dL (50-130) L 02/21/19 18:30 HDL Cholesterol 40 mg/dL (40-59) 02/21/19 18:30 Cholesterol/HDL Ratio 2.05 % 02/21/19 18:30 TSH 2.760 mlU/mL (0.270-4.200) 02/21/19 20:04 PTH Intact 267.6 pg/mL (15-65) H 03/02/19 05:15 Salicylates < 0.3 mg/dL (2.8-20.0) L 02/21/19 20:04 Acetaminophen < 5.0 ug/mL (10.0-30.0) L 02/21/19 20:04 Hepatitis A IgM Ab Non-reactive (NonReactive) 04/30/19 14:11 Hep Bs Antigen Non-reactive (Negative) 04/30/19 14:11 Hep B Core IgM Ab Non-reactive (NonReactive) 04/30/19 14:11 Hepatitis C Antibody Non-reactive (NonReactive) 04/30/19 14:11 Blood Type O POSITIVE 05/04/19 12:55 Antibody Screen Negative 05/04/19 12:55 Crossmatch See Detail 05/04/19 12:55 Active Medications - Current Medications Current Medications: Generic Name Dose Route Start Last Admin Trade Name Freq PRN Reason Stop Dose Admin Acetaminophen 650 mg 05/18/19 23:33 05/19/19 00:11 Tylenol PO 650 mg Q6HR PRN Administration PAIN Albuterol/Ipratropium 1 ampul 02/24/19 20:00 05/18/19 21:05 Duoneb *Not For Prn Use* IH 1 ampul TIDRT SANCHEZ Administration Lipase/Protease/Amylase 1 each 04/10/19 15:16 Pancrejewel Barrientos 10,500 Unit FEEDTUBE PRN PRN For Clogged Feeding Tube Epoetin Solitario 20,000 unit 03/24/19 11:17 05/15/19 12:01 Procrit IV 20,000 unit UMA PRN Administration hemodialysis Famotidine 20 mg 02/23/19 10:00 05/18/19 09:03 Pepcid PO 20 mg DAILY SANCHEZ Administration Sodium Chloride 100 mls @ 999 mls/hr 05/13/19 12:45 Nacl 0.9% IV UMA PRN Hypotension Insulin Human Regular 0 units 02/26/19 12:00 05/19/19 05:58 Humulin R SUB-Q 1 units Q6HR SANCHEZ Administration Protocol Metoprolol Tartrate 2.5 mg 02/28/19 12:06 03/15/19 05:15 Lopressor IV 2.5 mg Q4HR PRN Administration Tachycardia Risperidone 1 mg 02/25/19 13:00 05/18/19 09:03 Risperdal PO 1 mg DAILY SANCHEZ Administration Sertraline HCl 100 mg 02/25/19 13:00 05/18/19 09:03 Zoloft PO 100 mg DAILY SANCHEZ Administration Simple Syrup 15 ml 04/10/19 15:16 Simple Syrup FEEDTUBE PRN PRN Hypoglycemia Simple Syrup 30 ml 04/10/19 15:16 Simple Syrup FEEDTUBE PRN PRN Hypoglycemia Sodium Bicarbonate 325 mg 04/10/19 15:16 Sodium Bicarbonate FEEDTUBE PRN PRN For Clogged Feeding Tube Sodium Hypochlorite 1 applic 04/01/19 13:00 05/18/19 21:44 Dakin's Half Strength TP 1 applicatio BID SANCHEZ Administration Nutrition/Malnutrition Assess - Dietary Evaluation Nutrition/Malnutrition Findings: Nutrition Notes Start: 02/22/19 12:51 Freq: Status: Active Protocol: Document 05/15/19 16:23 RM (Rec: 05/15/19 16:30 RM [id number]) Nutrition Notes Initial or Follow up Reassessment Current Diagnosis Diabetes,Hypertension,Heart Failure Other Pertinent Diagnosis Sacral PU, ESRD on HD (T/Thurs /Sat), Schizophrenia,Blind in L eye,S/P trach Current Diet Nepro at 50 ml/hr w/Abhilash BID Labs/Tests POC 183, 169,119 Pertinent Medications Reviewed Height 5 ft 10 in Weight 75.5 kg [place] Body Weight (kg) 75.45 BMI 23.8 Subjective/Other Information Observed Nepro infusing at goal rate. Per nurse pt is tolerating TF. Nurse also stated that she was unaware of Abhilash order and has not given it to pt today. Electronics Supervisor explained the purpose of Abhilash and that administration instructions are in the diet order. Nurse stated that she will administer Abhilash to pt. Percent of energy/protein needs met: 100%/100% Burn Absent Trauma Absent Minimum of two criteria No #2 Nutrition Diagnosis Increased nutrient needs ( specify in comment below) Diagnosis Progress(for reassessment Continues documentation) #1 Nutrition Diagnosis Inadequate oral intake Diagnosis Progress(for reassessment Continues documentation) Is patient on ventilator? No Is Patient Ambulatory and/or Out of Bed No REE-([facility]-confined to bed) 1866.744 Kcal/Kg value to use for calculation 31 Approximate Energy Requirements Using 2341 kcal/Kg Calculation Used for Recommendations [facility] Additional Notes Protein Needs:90 - 112 g (1.2- 1.5 g/kg) Fluid Needs: 1-1.5 L/day Nutrition Intervention Change Diet Order: Continue TF Nutrition Support: Nepro with Carbsteady 1.8 at 50 ml/hr Flush 200 ml q4hr Kcal 2,160 Protein (gm) 97 Fluid (mL) 872 Add Supplement/Snack (indicate name/kcal Abhilash BID /protein ) Provides kCal: 190 Provides Protein (gm) 5 Goal #1 TF tolerance Goal #2 Continue to meet at least 75% of calorie and protein needs via TF Anticipated Discharge Needs: TF Follow-Up By: 05/19/19 Additional Comments Follow for TF tolerance, receiving Abhilash
--- NOTE | 2019-05-19 08:32 | Progress Note ---
Assessment and Plan Assessment: * End stage renal disease (outpatient TTS schedule) * Acute hypoxic respiratory failure s/p trach * s/p KEON pneumonia --Sputum cx: MDR Acinetobacter * Cardiomyopathy - EF 35-40% * Atrial fibrillation * History of CVA * Anemia secondary to ESRD * Secondary hyperparathyroidism Plan * Patient is s/p HD yesterday * Continue HD MWF via [facility] * ID following * Nutrition per primary team * Dose medications for renal function * Epogen 20k TIW * Overall prognosis remains poor; will continue to follow for ESRD needs while inpatient Subjective Date of service: 05/19/19 Principal diagnosis: Respiratory failure, acute on chronic systolic HF, ESRD Interval history: Patient w/ fever to 101.5 overnight. Objective - Vital Signs Vital signs: Vital Signs - 12hr 05/18/19 05/18/19 05/18/19 21:05 21:10 22:40 Temperature Pulse Rate Pulse Rate [ 125 H Anterior Bilateral Throughout] Pulse Rate [ 122 H Apical] Pulse Rate [ 122 H From Monitor] Respiratory 20 Rate Respiratory 18 Rate [Anterior Bilateral Throughout] Blood Pressure O2 Sat by Pulse 98 100 Oximetry O2 Sat by Pulse Oximetry [ Assessment] 05/18/19 05/18/19 05/19/19 22:46 23:30 00:11 Temperature 99.9 F H 99.9 F H Pulse Rate 122 H Pulse Rate [ Anterior Bilateral Throughout] Pulse Rate [ Apical] Pulse Rate [ From Monitor] Respiratory 18 18 20 Rate Respiratory Rate [Anterior Bilateral Throughout] Blood Pressure 99/56 100/47 O2 Sat by Pulse 100 Oximetry O2 Sat by Pulse Oximetry [ Assessment] 05/19/19 05/19/19 05/19/19 04:04 04:47 04:56 Temperature 98.4 F Pulse Rate 102 H Pulse Rate [ Anterior Bilateral Throughout] Pulse Rate [ Apical] Pulse Rate [ From Monitor] Respiratory 19 Rate Respiratory Rate [Anterior Bilateral Throughout] Blood Pressure 90/51 O2 Sat by Pulse 94 Oximetry O2 Sat by Pulse 98 Oximetry [ Assessment] 05/19/19 07:26 Temperature 97.7 F Pulse Rate 102 H Pulse Rate [ Anterior Bilateral Throughout] Pulse Rate [ Apical] Pulse Rate [ From Monitor] Respiratory 18 Rate Respiratory Rate [Anterior Bilateral Throughout] Blood Pressure 93/51 O2 Sat by Pulse 100 Oximetry O2 Sat by Pulse Oximetry [ Assessment] - General Appearance General appearance: frail EENT: ATNC Neck: other (trach) Respiratory: Present: Decreased Breath Sounds Cardiology: regular, S1S2 Gastrointestinal: no tenderness, no distended Integumentary: warm and dry Musculoskeletal: other (no edema) - Lab 05/19/19 01:00 05/19/19 01:00 Most recent lab results ABG pH 7.424 pH Units (7.350-7.450) 03/19/19 04:23 ABG pCO2 48.0 mm Hg 03/19/19 04:23 ABG pO2 78.3 mm Hg (80.0-90.0) L 03/19/19 04:23 ABG HCO3 30.7 mmol/L (20.0-26.0) H 03/19/19 04:23 ABG O2 Saturation 97.0 % (95.0-99.0) 03/19/19 04:23 Calcium 9.5 mg/dL (8.4-10.2) 05/19/19 01:00 Phosphorus 4.30 mg/dL (2.5-4.5) D 03/31/19 10:26 Magnesium 2.70 mg/dL (1.7-2.3) H 03/30/19 10:13 Medications & Allergies - Medications Allergies/Adverse Reactions: Allergies haloperidol [From Haldol] Adverse Reaction (Verified 03/13/18 12:10) Unknown haloperidol lactate [From Haldol] Adverse Reaction (Verified 03/13/18 12:10) Unknown Home Medications: Home Medications Medication Instructions Recorded Confirmed Last Taken Type risperiDONE [RisperDAL] 1 mg PO QAM 03/13/18 02/21/19 Unknown History Sertraline [Zoloft] 100 mg PO QDAY 08/26/18 02/21/19 Unknown History Polyethylene Glycol 3350 [Miralax 17 gm PO QDAY #30 packet 11/05/18 02/21/19 Unknown Rx 3350] Aspirin EC [Halfprin EC] 81 mg PO DAILY #30 11/19/18 02/21/19 Unknown Rx Docusate Sodium [Colace CAP] 100 mg PO BID #60 11/19/18 02/21/19 Unknown Rx Folic Acid [Folvite] 1 mg PO DAILY #30 tab 11/19/18 02/21/19 Unknown Rx Famotidine [Pepcid] 20 mg PO DAILY tablet 12/08/18 02/21/19 Unknown Rx Gabapentin 100 mg PO QHS capsule 12/08/18 02/21/19 Unknown Rx Metoprolol [Lopressor TAB] 50 mg PO BID 30 Days tablet 12/08/18 02/21/19 Unknown Rx Sevelamer Carbonate [Renvela] 800 mg PO TIDWM tablet 12/08/18 02/21/19 Unknown Rx hydrALAZINE [Apresoline TAB] 100 mg PO Q8HR #120 tablet 12/08/18 02/21/19 Unknown Rx Acetaminophen [Acetaminophen TAB] 650 mg PO Q12H PRN 12/15/18 02/21/19 Unknown History Glucagon,Human Recombinant 1 mg IJ Q15MIN PRN 12/15/18 02/21/19 Unknown History [Glucagon Emergency Kit] Insulin Aspart [NovoLOG 100 See Protocol SQ QWEEK 12/15/18 02/21/19 Unknown History UNITS/ML VIAL] Active Medications: Generic Name Dose Route Start Last Admin Trade Name Freq PRN Reason Stop Dose Admin Acetaminophen 650 mg 05/18/19 23:33 05/19/19 00:11 Tylenol PO 650 mg Q6HR PRN Administration PAIN Albuterol/Ipratropium 1 ampul 02/24/19 20:00 05/18/19 21:05 Duoneb *Not For Prn Use* IH 1 ampul TIDRT SANCHEZ Administration Lipase/Protease/Amylase 1 each 04/10/19 15:[address] 10,500 Unit FEEDTUBE PRN PRN For Clogged Feeding Tube Epoetin Solitario 20,000 unit 03/24/19 11:17 05/15/19 12:01 Procrit IV 20,000 unit UMA PRN Administration hemodialysis Famotidine 20 mg 02/23/19 10:00 05/18/19 09:03 Pepcid PO 20 mg DAILY SANCHEZ Administration Sodium Chloride 100 mls @ 999 mls/hr 05/13/19 12:45 Nacl 0.9% IV UMA PRN Hypotension Insulin Human Regular 0 units 02/26/19 12:00 05/19/19 05:58 Humulin R SUB-Q 1 units Q6HR SANCHEZ Administration Protocol Metoprolol Tartrate 2.5 mg 02/28/19 12:06 03/15/19 05:15 Lopressor IV 2.5 mg Q4HR PRN Administration Tachycardia Risperidone 1 mg 02/25/19 13:00 05/18/19 09:03 Risperdal PO 1 mg DAILY SANCHEZ Administration Sertraline HCl 100 mg 02/25/19 13:00 05/18/19 09:03 Zoloft PO 100 mg DAILY SANCHEZ Administration Simple Syrup 15 ml 04/10/19 15:16 Simple Syrup FEEDTUBE PRN PRN Hypoglycemia Simple Syrup 30 ml 04/10/19 15:16 Simple Syrup FEEDTUBE PRN PRN Hypoglycemia Sodium Bicarbonate 325 mg 04/10/19 15:16 Sodium Bicarbonate FEEDTUBE PRN PRN For Clogged Feeding Tube Sodium Hypochlorite 1 applic 04/01/19 13:00 05/18/19 21:44 Dakin's Half Strength TP 1 applicatio BID SANCHEZ Administration
[2019-05-19] MEDS: IPRATROPIUM/ALBUTEROL SULFATE 3 ML AMPUL.NEB IH SCH ×3 (08:48→19:35)
[2019-05-19] MEDS: SERTRALINE 100 MG TAB PO SCH (10:55)
[2019-05-19] MEDS: FAMOTIDINE 20 MG TAB PO SCH (10:55)
[2019-05-19] MEDS: risperiDONE 1 MG TAB PO SCH (10:56)
[2019-05-19] MEDS: SODIUM HYPOCHLORITE, DAKIN'S 1/2 STRENGTH (0.25%) 473 ML TOPICAL SOLN TP SCH ×2 (10:56→22:33)
--- NOTE | 2019-05-19 12:19 | Progress Note ---
Assessment and Plan Cultures: Blood cultures 12/26/2018 no growth today. Blood cultures 01/01/2019 no growth today. Wound cultures 01/02/2019 ESBL Kleb, MDR Ecoli and E raffinosus resistant to penicillin. 03/14 Sputum Cx: MDR Acinetobacter 03/14 BCx: NGTD 03/17 Sputum CX: MDR Acinetobacter Assessment: 63 y/o male with history of ESRD on HD, HTN, CAD S/P CABG, CVA, DM, Atrial Fib, Anemia, Hyperparathyroidism, Hypocalcemia, schizophrenia; well known to ID service from previous admissions, most recently on 12/26/2018 due to sepsis from unstagable necrotic sacral decubitus s/p OR on 01/01/2019 for open excisional debridement of necrotic sacral wound with ESBL Kleb, MDR Ecoli, treated with Meropenem 1 gm IV every 24 hours via tunneled catheter and Vancomycin 1 gm post HD Saturday, and Saturday for 6 weeks ending 02-16-19; readmitted: 1. Sepsis: again with fevers and leukocytosis, tachycardia. Would assume repeat tracheitis. Obtain sputum cultures. Given his history of MDR I would avoid empiric antibiotics as we have so few options left. Will give targeted antibiotics pending sputum results. Strongly need to consider hospice. 2. Hypoxic respiratory failure - 2/2 fluid overload. Improving 3. DM2 4. Left 5th finger pressure ulcer: not infected 5. Sacral stage IV ulcer s/p extensive treatment - NOT infected currently; treated with Meropenem 1 gm IV every 24 hours via tunneled catheter and Vancomycin 1 gm post HD Saturday, and Saturday for 6 weeks ending 02-16-19 6. ESRD on HD Recommendations: - obtain sputum cultures - contact precautions - consider hospice, he will continue to develop worsening resistance and we will exhaust all therapeutic options for Acinetobacter very quicky. Will follow. Sherman Shirley MD [facility] ([facility] M: [phone] O: [phone] F: [phone] Subjective Date of service: 05/19/19 Principal diagnosis: Respiratory failure, acute on chronic systolic HF, ESRD Interval history: Non-responsive, new fever overnight for which we are called back to the case. Objective - Exam Narrative Exam: Constitutional: Alert, cooperative. No acute distress Neck: Supple, no meningeal signs. Trach in place. Oral: dentition fair, no thrush Cardiovascular: S1, S2 normal. Respiratory: Good air entry, clear to auscultation bilaterally GI: Soft, non-tender; bowel sounds normal. No peritoneal signs. Musculoskeletal: No pedal edema, no cyanosis. Skin: No rash or abscess Neurological: Awake, trached. No gross abnormality - Constitutional Vitals: Vital Signs Temp Pulse Resp BP Pulse Ox 97.7 F 112 H 18 96/53 100 05/19/19 07:26 05/19/19 08:49 05/19/19 08:49 05/19/19 10:48 05/19/19 08:48 Temperature -Last 24 Hours Temperature 97.7 F Temperature 98.4 F Temperature 99.9 F Temperature 99.9 F Temperature 101.5 F Temperature 98.6 F Temperature 99.5 F - Labs CBC & Chem 7: 05/19/19 01:00 05/19/19 01:00 Labs: Abnormal lab results 05/18/19 05/19/19 05/19/19 Range/Units 16:53 00:19 01:00 WBC 11.6 H (4.5-11.0) K/mm3 RBC 3.12 L (3.65-5.03) M/mm3 Hgb 7.9 L (11.8-15.2) gm/dl Hct 25.9 L (35.5-45.6) % MCV 83 L (84-94) fl MCH 25 L (28-32) pg MCHC 31 L (32-34) % RDW 21.1 H (13.2-15.2) % Sodium (137-145) mmol/L Chloride (98-107) mmol/L BUN (9-20) mg/dL Creatinine (0.8-1.5) mg/dL Glucose (75-100) mg/dL POC Glucose 166 H 207 H (70-105) 05/19/19 05/19/19 05/19/19 Range/Units 01:00 05:15 11:21 WBC (4.5-11.0) K/mm3 RBC (3.65-5.03) M/mm3 Hgb (11.8-15.2) gm/dl Hct (35.5-45.6) % MCV (84-94) fl MCH (28-32) pg MCHC (32-34) % RDW (13.2-15.2) % Sodium 135 L (137-145) mmol/L Chloride 93.6 L (98-107) mmol/L BUN 64 H (9-20) mg/dL Creatinine 2.8 H (0.8-1.5) mg/dL Glucose 194 H (75-100) mg/dL POC Glucose 176 H 162 H (70-105)
[2019-05-20] MEDS: INSULIN REGULAR, HUMAN 100 UNITS/1 ML SUB-Q SCH ×3 (00:21→18:39)
--- NOTE | 2019-05-20 08:08 | Progress Note ---
Assessment and Plan Assessment: * End stage renal disease (outpatient TTS schedule) * Acute hypoxic respiratory failure s/p trach * s/p KEON pneumonia --Sputum cx: MDR Acinetobacter * Cardiomyopathy - EF 35-40% * Atrial fibrillation * History of CVA * Anemia secondary to ESRD * Secondary hyperparathyroidism Plan * Continue HD MWF via [facility] * ID following - recommendations reviewed * Nutrition per primary team * Dose medications for renal function * Hb 7.9 - Epogen 20k TIW; obtain iron stores at next dialysis treatment * Overall prognosis remains poor; family declines hospice; will continue to follow for ESRD needs while inpatient Subjective Date of service: 05/20/19 Principal diagnosis: Respiratory failure, acute on chronic systolic HF, ESRD Interval history: No acute events overnight. Objective - Vital Signs Vital signs: Vital Signs - 12hr 05/19/19 05/19/19 05/19/19 22:00 22:25 23:25 Temperature 98.3 F Pulse Rate 115 H Pulse Rate [ 115 H Apical] Pulse Rate [ 115 H From Monitor] Respiratory 20 20 Rate Blood Pressure 92/52 O2 Sat by Pulse 100 100 Oximetry O2 Sat by Pulse 99 Oximetry [ Assessment] 05/20/19 03:30 Temperature 98.9 F Pulse Rate 114 H Pulse Rate [ Apical] Pulse Rate [ From Monitor] Respiratory 18 Rate Blood Pressure 99/56 O2 Sat by Pulse 100 Oximetry O2 Sat by Pulse Oximetry [ Assessment] - General Appearance General appearance: well-developed, chronically ill, frail EENT: ATNC Neck: other (trach) Respiratory: Present: Decreased Breath Sounds Cardiology: regular, S1S2 Gastrointestinal: other (PEG, ostomy) Musculoskeletal: other (no edema) - Lab 05/19/19 01:00 05/19/19 01:00 Most recent lab results ABG pH 7.424 pH Units (7.350-7.450) 03/19/19 04:23 ABG pCO2 48.0 mm Hg 03/19/19 04:23 ABG pO2 78.3 mm Hg (80.0-90.0) L 03/19/19 04:23 ABG HCO3 30.7 mmol/L (20.0-26.0) H 03/19/19 04:23 ABG O2 Saturation 97.0 % (95.0-99.0) 03/19/19 04:23 Calcium 9.5 mg/dL (8.4-10.2) 05/19/19 01:00 Phosphorus 4.30 mg/dL (2.5-4.5) D 03/31/19 10:26 Magnesium 2.70 mg/dL (1.7-2.3) H 03/30/19 10:13 Medications & Allergies - Medications Allergies/Adverse Reactions: Allergies haloperidol [From Haldol] Adverse Reaction (Verified 03/13/18 12:10) Unknown haloperidol lactate [From Haldol] Adverse Reaction (Verified 03/13/18 12:10) Unknown Home Medications: Home Medications Medication Instructions Recorded Confirmed Last Taken Type risperiDONE [RisperDAL] 1 mg PO QAM 03/13/18 02/21/19 Unknown History Sertraline [Zoloft] 100 mg PO QDAY 08/26/18 02/21/19 Unknown History Polyethylene Glycol 3350 [Miralax 17 gm PO QDAY #30 packet 11/05/18 02/21/19 Unknown Rx 3350] Aspirin EC [Halfprin EC] 81 mg PO DAILY #30 11/19/18 02/21/19 Unknown Rx Docusate Sodium [Colace CAP] 100 mg PO BID #60 11/19/18 02/21/19 Unknown Rx Folic Acid [Folvite] 1 mg PO DAILY #30 tab 11/19/18 02/21/19 Unknown Rx Famotidine [Pepcid] 20 mg PO DAILY tablet 12/08/18 02/21/19 Unknown Rx Gabapentin 100 mg PO QHS capsule 12/08/18 02/21/19 Unknown Rx Metoprolol [Lopressor TAB] 50 mg PO BID 30 Days tablet 12/08/18 02/21/19 Unknown Rx Sevelamer Carbonate [Renvela] 800 mg PO TIDWM tablet 12/08/18 02/21/19 Unknown Rx hydrALAZINE [Apresoline TAB] 100 mg PO Q8HR #120 tablet 12/08/18 02/21/19 Unknown Rx Acetaminophen [Acetaminophen TAB] 650 mg PO Q12H PRN 12/15/18 02/21/19 Unknown History Glucagon,Human Recombinant 1 mg IJ Q15MIN PRN 12/15/18 02/21/19 Unknown History [Glucagon Emergency Kit] Insulin Aspart [NovoLOG 100 See Protocol SQ QWEEK 12/15/18 02/21/19 Unknown History UNITS/ML VIAL] Active Medications: Generic Name Dose Route Start Last Admin Trade Name Freq PRN Reason Stop Dose Admin Acetaminophen 650 mg 05/18/19 23:33 05/19/19 10:55 Tylenol PO 650 mg Q6HR PRN Administration PAIN Albuterol/Ipratropium 1 ampul 02/24/19 20:00 05/19/19 19:35 Duoneb *Not For Prn Use* IH 1 ampul TIDRT SANCHEZ Administration Lipase/Protease/Amylase 1 each 04/10/19 15:16 Pancreaze 10,500 Unit FEEDTUBE PRN PRN For Clogged Feeding Tube Epoetin Solitario 20,000 unit 03/24/19 11:17 05/15/19 12:01 Procrit IV 20,000 unit UMA PRN Administration hemodialysis Famotidine 20 mg 02/23/19 10:00 05/19/19 10:55 Pepcid PO 20 mg DAILY SANCHEZ Administration Sodium Chloride 100 mls @ 999 mls/hr 05/13/19 12:45 Nacl 0.9% IV UMA PRN Hypotension Insulin Human Regular 0 units 02/26/19 12:00 05/20/19 06:24 Humulin R SUB-Q Not Given Q6HR [facility] Protocol Metoprolol Tartrate 2.5 mg 02/28/19 12:06 03/15/19 05:15 Lopressor IV 2.5 mg Q4HR PRN Administration Tachycardia Risperidone 1 mg 02/25/19 13:00 05/19/19 10:56 Risperdal PO 1 mg DAILY SANCHEZ Administration Sertraline HCl 100 mg 02/25/19 13:00 05/19/19 10:55 Zoloft PO 100 mg DAILY SANCHEZ Administration Simple Syrup 15 ml 04/10/19 15:16 Simple Syrup FEEDTUBE PRN PRN Hypoglycemia Simple Syrup 30 ml 04/10/19 15:16 Simple Syrup FEEDTUBE PRN PRN Hypoglycemia Sodium Bicarbonate 325 mg 04/10/19 15:16 Sodium Bicarbonate FEEDTUBE PRN PRN For Clogged Feeding Tube Sodium Hypochlorite 1 applic 04/01/19 13:00 05/19/19 22:33 Dakin's Half Strength TP 1 applicatio BID SANCHEZ Administration
[2019-05-20] MEDS: IPRATROPIUM/ALBUTEROL SULFATE 3 ML AMPUL.NEB IH SCH ×3 (08:45→22:34)
--- NOTE | 2019-05-20 10:32 | Progress Note ---
Assessment and Plan Assessment and plan: Patient is a 63-year-old -Thai man from [facility] with a plethora of co-morbidities including blindness, CVA, CHF, PPM/ICD, loop recorder since 2012 that is MRI compatible, IDDM type 2, sepsis left foot ulcer, afib, ESRD with complications on HD TTS, hypertension, AOCD and GERD who presented to the ED with hypotensive after intubation in the emergency room., diagnosed with fluid overload, pleural effusion. Patient has had recurrent admission in the hospital for similar reason and was recently discharged from the hospital following treatment of Severe Sepsis due to Necrotizing Unstagable sacral decubitus ulcer with ostemomylitis, expected to complete abx on discharge till 02/16/19. Fever has resolved mgt per ID Trach and peg done HR control improved with change in BB. Acute respiratory failure on mechanical ventilator >96 hrs Trach placed on 03/03/19 Pulm consult appreciated weaning trial VAP BUNDLE ASPIRATION BUNDLE Continue T-piece Finished therapy for Acinetobacter Acute pulmonary edema, fluid overload on CXR repeat xray intermittently Dialysis Necrotizing Unstagable sacral decubitus ulcer with ostemomyelitis Wound care, Dilated CMP Cardiomyiopathy EF 35-40% Continue diuresis PPM/ICD Acute encephalopathy, probably metabolic or toxic Continues on Mechanical ventilator. ESRD on hemodialysis nephrology following Vascular eval. done re: LUE AV graft, see note Bilateral pleural effusions Anticipate improvement with Permanent atrial fibrillation and flutter Not on anticoagulation because of anemia thrombocytopenia Change noted to BB agent to IV. Diabetes mellitus type 2 Fingerstick Q4h NSTEMI type 2 Cardiology following Schizophrenia continue home meds Legally blind supportive care hypertension Monitor BP Hypokalemia resolved Pulmonary hypertension by history Dysphagia s/p PEG tube Severe malnutrition/hypoalbuminemia with FTT: 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, lead pressman following PEG placed on 01/02/19 Decubitus ulcer s/;p colostomy wound care consult History of sacral osteomyelitis and LE ulcers Completed Antibiotics Place on contact isolation for ESBL Klebsiella pneumonia on wound culture 01/02/19 h/o Peripheral neuropathy: Continue gabapentin Anemia of chronic disease -s/p total of 8 units PRBC, follow cbc- no occult GI bleed noted. -Pt is s/p x1 DDVAP RUL atelectasis, nebs as needed DVT prophylaxis Lovenox DNR poor prognosis Disposition: Awaiting on HD setup History Interval history: no fevers remains demented no vomiting, no agitation, no seizures Hospitalist Physical - Physical exam Narrative exam: Constitutional: no acute distress, opens eyes, says hello Eyes: non-icteric ENT: oropharynx moist Neck: supple Effort: normal Ascultation: Bilateral: other (coarse BS bilaterally) Percussion: Bilateral: not dull Cardiovascular: regular rate and rhythm (no mrg) Gastrointestinal: normoactive bowel sounds, soft, non-tender, non-distended, other (ostomy in place, brown stool) Extremities: no cyanosis, no edema, pink and warm Neurologic: other (mild weakness LUE, o/w nonfocal), demented Psychiatric: other (unable to assess) SKIN; Left 5th finger, stage 4 pressure ulcer,Left heel, deep tissue injury, Sacrum, stage 4 pressure ulcer POA - Constitutional Vitals: Temp Pulse Resp BP Pulse Ox 99.1 F 106 H 16 102/59 86 05/20/19 08:35 05/20/19 09:30 05/20/19 08:35 05/20/19 09:30 05/20/19 08:23 General appearance: Present: no acute distress, other (T peace). Absent: well- nourished Results - Labs CBC & Chem 7: 05/19/19 01:00 05/19/19 01:00 Labs: Laboratory Last Values WBC 11.6 K/mm3 (4.5-11.0) H 05/19/19 01:00 RBC 3.12 M/mm3 (3.65-5.03) L 05/19/19 01:00 Hgb 7.9 gm/dl (11.8-15.2) L 05/19/19 01:00 Hct 25.9 % (35.5-45.6) L 05/19/19 01:00 MCV 83 fl (84-94) L 05/19/19 01:00 MCH 25 pg (28-32) L 05/19/19 01:00 MCHC 31 % (32-34) L 05/19/19 01:00 RDW 21.1 % (13.2-15.2) H 05/19/19 01:00 Plt Count 386 K/mm3 (140-440) 05/19/19 01:00 Lymph % (Auto) 6.9 % (13.4-35.0) L 05/12/19 07:15 [place] % (Auto) 7.3 % (0.0-7.3) 05/12/19 07:15 Eos % (Auto) 6.5 % (0.0-4.3) H 05/12/19 07:15 Baso % (Auto) 0.7 % (0.0-1.8) 05/12/19 07:15 Lymph # 0.7 K/mm3 (1.2-5.4) L 05/12/19 07:15 [place] # 0.7 K/mm3 (0.0-0.8) 05/12/19 07:15 Eos # 0.6 K/mm3 (0.0-0.4) H 05/12/19 07:15 Baso # 0.1 K/mm3 (0.0-0.1) 05/12/19 07:15 Add Manual Diff Complete 03/21/19 06:30 Total Counted 100 03/21/19 06:30 Seg Neutrophils % 78.6 % (40.0-70.0) H 05/12/19 07:15 Seg Neuts % (Manual) 81.0 % (40.0-70.0) H 03/21/19 06:30 Band Neutrophils % 0 % 03/21/19 06:30 Lymphocytes % (Manual) 8.0 % (13.4-35.0) L 03/21/19 06:30 Reactive Lymphs % (Man) 0 % 03/21/19 06:30 Monocytes % (Manual) 1.0 % (0.0-7.3) 03/21/19 06:30 Eosinophils % (Manual) 8.0 % (0.0-4.3) H 03/21/19 06:30 Basophils % (Manual) 1.0 % (0.0-1.8) 03/21/19 06:30 Metamyelocytes % 1.0 % 03/21/19 06:30 Myelocytes % 0 % 03/21/19 06:30 Promyelocytes % 0 % 03/21/19 06:30 Blast Cells % 0 % 03/21/19 06:30 Nucleated RBC % Not Reportable 03/21/19 06:30 Seg Neutrophils # 7.8 K/mm3 (1.8-7.7) H 05/12/19 07:15 Seg Neutrophils # Man 6.7 K/mm3 (1.8-7.7) 03/21/19 06:30 Band Neutrophils # 0.0 K/mm3 03/21/19 06:30 Lymphocytes # (Manual) 0.7 K/mm3 (1.2-5.4) L 03/21/19 06:30 Abs React Lymphs (Man) 0.0 K/mm3 03/21/19 06:30 Monocytes # (Manual) 0.1 K/mm3 (0.0-0.8) 03/21/19 06:30 Eosinophils # (Manual) 0.7 K/mm3 (0.0-0.4) H 03/21/19 06:30 Basophils # (Manual) 0.1 K/mm3 (0.0-0.1) 03/21/19 06:30 Metamyelocytes # 0.1 K/mm3 03/21/19 06:30 Myelocytes # 0.0 K/mm3 03/21/19 06:30 Promyelocytes # 0.0 K/mm3 03/21/19 06:30 Blast Cells # 0.0 K/mm3 03/21/19 06:30 WBC Morphology Not Reportable 03/21/19 06:30 Hypersegmented Neuts Not Reportable 03/21/19 06:30 Hyposegmented Neuts Not Reportable 03/21/19 06:30 Hypogranular Neuts Not Reportable 03/21/19 06:30 Smudge Cells Not Reportable 03/21/19 06:30 Toxic Granulation Not Reportable 03/21/19 06:30 Toxic Vacuolation Not Reportable 03/21/19 06:30 Dohle Bodies Not Reportable 03/21/19 06:30 Pelger-Huet Anomaly Not Reportable 03/21/19 06:30 Tramaine Rods Not Reportable 03/21/19 06:30 Platelet Estimate Consistent w auto 03/21/19 06:30 Clumped Platelets Not Reportable 03/21/19 06:30 Plt Clumps, EDTA Not Reportable 03/21/19 06:30 Large Platelets Not Reportable 03/21/19 06:30 Giant Platelets Not Reportable 03/21/19 06:30 Platelet Satelliting Not Reportable 03/21/19 06:30 Plt Morphology Comment Not Reportable 03/21/19 06:30 RBC Morphology Not Reportable 03/21/19 06:30 Dimorphic RBCs Not Reportable 03/21/19 06:30 Polychromasia Not Reportable 03/21/19 06:30 Hypochromasia Few 03/21/19 06:30 Poikilocytosis Few 03/21/19 06:30 Anisocytosis Few 03/21/19 06:30 Microcytosis Not Reportable 03/21/19 06:30 Macrocytosis Not Reportable 03/21/19 06:30 Spherocytes Not Reportable 03/21/19 06:30 Pappenheimer Bodies Not Reportable 03/21/19 06:30 Sickle Cells Not Reportable 03/21/19 06:30 Target Cells 1+ 03/21/19 06:30 Tear Drop Cells Not Reportable 03/21/19 06:30 Ovalocytes Few 03/21/19 06:30 Helmet Cells Not Reportable 03/21/19 06:30 [place] Bodies Not Reportable 03/21/19 06:30 [place] Rings Not Reportable 03/21/19 06:30 [place] Cells Not Reportable 03/21/19 06:30 Bite Cells Not Reportable 03/21/19 06:30 Crenated Cell Not Reportable 03/21/19 06:30 Elliptocytes Not Reportable 03/21/19 06:30 Acanthocytes (Spur) Not Reportable 03/21/19 06:30 Rouleaux Not Reportable 03/21/19 06:30 Hemoglobin C Crystals Not Reportable 03/21/19 06:30 Schistocytes Not Reportable 03/21/19 06:30 Malaria parasites Not Reportable 03/21/19 06:30 Jose Juan Bodies Not Reportable 03/21/19 06:30 Hem Pathologist Commnt No 03/21/19 06:30 PT 16.3 Sec. (12.2-14.9) H 03/01/19 09:39 INR 1.35 (0.87-1.13) H 03/01/19 09:39 APTT 33.7 Sec. (24.2-36.6) 02/21/19 18:30 D-Dimer 2987.82 ng/mlDDU (0-234) H 02/22/19 05:54 POC ABG pH 7.510 (7.35-7.45) H 03/18/19 06:38 ABG pH 7.424 pH Units (7.350-7.450) 03/19/19 04:23 POC ABG pCO2 38.9 (35-45) 03/18/19 06:38 ABG pCO2 48.0 mm Hg 03/19/19 04:23 POC ABG pO2 164 (80-105) H 03/18/19 06:38 ABG pO2 78.3 mm Hg (80.0-90.0) L 03/19/19 04:23 POC ABG HCO3 31.0 (22-26 mml/L) 03/18/19 06:38 ABG HCO3 30.7 mmol/L (20.0-26.0) H 03/19/19 04:23 POC ABG Total CO2 32 (23-27mmol/L) 03/18/19 06:38 POC ABG O2 Sat 100 03/18/19 06:38 ABG O2 Saturation 97.0 % (95.0-99.0) 03/19/19 04:23 ABG O2 Content 7.9 (0.0-44) 03/19/19 04:23 POC ABG Base Excess 8 ((-2) - (+3)mmol/L) 03/18/19 06:38 ABG Base Excess 5.8 mmol/L (-2.0-3.0) H 03/19/19 04:23 ABG Hemoglobin 5.8 gm/dl (14.0-18.0) L 03/19/19 04:23 ABG Carboxyhemoglobin 2.0 % (0.0-5.0) 03/19/19 04:23 ABG Methemoglobin 0.4 % (0.0-1.5) 03/19/19 04:23 Oxyhemoglobin 94.6 % (95.0-99.0) L 03/19/19 04:23 FiO2 35 % 03/19/19 04:23 Sodium 135 mmol/L (137-145) L 05/19/19 01:00 Potassium 3.9 mmol/L (3.6-5.0) 05/19/19 01:00 Chloride 93.6 mmol/L (98-107) L 05/19/19 01:00 Carbon Dioxide 29 mmol/L (22-30) 05/19/19 01:00 Anion Gap 16 mmol/L 05/19/19 01:00 BUN 64 mg/dL (9-20) H 05/19/19 01:00 Creatinine 2.8 mg/dL (0.8-1.5) H 05/19/19 01:00 Estimated GFR 28 ml/min 05/19/19 01:00 BUN/Creatinine Ratio 23 % 05/19/19 01:00 Glucose 194 mg/dL (75-100) H 05/19/19 01:00 POC Glucose 132 (70-105) H 05/20/19 05:58 Lactic Acid 1.00 mmol/L (0.7-2.0) 02/21/19 20:58 Calcium 9.5 mg/dL (8.4-10.2) 05/19/19 01:00 Phosphorus 4.30 mg/dL (2.5-4.5) D 03/31/19 10:26 Magnesium 2.70 mg/dL (1.7-2.3) H 03/30/19 10:13 Total Bilirubin 0.20 mg/dL (0.1-1.2) 03/30/19 10:13 AST 16 units/L (5-40) 03/30/19 10:13 ALT 11 units/L (7-56) 03/30/19 10:13 Alkaline Phosphatase 185 units/L (35-129) H 03/30/19 10:13 Ammonia 28.0 umol/L (25-60) 02/21/19 20:04 Total Creatine Kinase 64 units/L (55-170) 02/22/19 03:42 CK-MB (CK-2) 3.7 ng/mL (0.0-4.0) 02/22/19 03:42 CK-MB (CK-2) Rel Index 5.7 (0-4) H 02/22/19 03:42 Troponin T 0.193 ng/mL (0.00-0.029) H* 02/22/19 03:42 Total Protein 6.9 g/dL (6.3-8.2) 03/30/19 10:13 Albumin 2.6 g/dL (3.9-5) L 03/30/19 10:13 Albumin/Globulin Ratio 0.6 % 03/30/19 10:13 Triglycerides 51 mg/dL (2-149) 02/21/19 18:30 Cholesterol 82 mg/dL (50-199) 02/21/19 18:30 LDL Cholesterol Direct 36 mg/dL (50-130) L 02/21/19 18:30 HDL Cholesterol 40 mg/dL (40-59) 02/21/19 18:30 Cholesterol/HDL Ratio 2.05 % 02/21/19 18:30 TSH 2.760 mlU/mL (0.270-4.200) 02/21/19 20:04 PTH Intact 267.6 pg/mL (15-65) H 03/02/19 05:15 Salicylates < 0.3 mg/dL (2.8-20.0) L 02/21/19 20:04 Acetaminophen < 5.0 ug/mL (10.0-30.0) L 02/21/19 20:04 Hepatitis A IgM Ab Non-reactive (NonReactive) 04/30/19 14:11 Hep Bs Antigen Non-reactive (Negative) 04/30/19 14:11 Hep B Core IgM Ab Non-reactive (NonReactive) 04/30/19 14:11 Hepatitis C Antibody Non-reactive (NonReactive) 04/30/19 14:11 Blood Type O POSITIVE 05/04/19 12:55 Antibody Screen Negative 05/04/19 12:55 Crossmatch See Detail 05/04/19 12:55 Active Medications - Current Medications Current Medications: Generic Name Dose Route Start Last Admin Trade Name Freq PRN Reason Stop Dose Admin Acetaminophen 650 mg 05/18/19 23:33 05/19/19 10:55 Tylenol PO 650 mg Q6HR PRN Administration PAIN Albuterol/Ipratropium 1 ampul 02/24/19 20:00 05/20/19 08:45 Duoneb *Not For Prn Use* IH Not Given TIDRT SANCHEZ Lipase/Protease/Amylase 1 each 04/10/19 15:16 Pancreaze 10,500 Unit FEEDTUBE PRN PRN For Clogged Feeding Tube Epoetin Solitario 20,000 unit 03/24/19 11:17 05/15/19 12:01 Procrit IV 20,000 unit UMA PRN Administration hemodialysis Famotidine 20 mg 02/23/19 10:00 05/19/19 10:55 Pepcid PO 20 mg DAILY SACNHEZ Administration Sodium Chloride 100 mls @ 999 mls/hr 05/13/19 12:45 Nacl 0.9% IV UMA PRN Hypotension Insulin Human Regular 0 units 02/26/19 12:00 05/20/19 06:24 Humulin R SUB-Q Not Given Q6HR SANCHEZ Protocol Metoprolol Tartrate 2.5 mg 02/28/19 12:06 03/15/19 05:15 Lopressor IV 2.5 mg Q4HR PRN Administration Tachycardia Risperidone 1 mg 02/25/19 13:00 05/19/19 10:56 Risperdal PO 1 mg DAILY SANCHEZ Administration Sertraline HCl 100 mg 02/25/19 13:00 05/19/19 10:55 Zoloft PO 100 mg DAILY SANCHEZ Administration Simple Syrup 15 ml 04/10/19 15:16 Simple Syrup FEEDTUBE PRN PRN Hypoglycemia Simple Syrup 30 ml 04/10/19 15:16 Simple Syrup FEEDTUBE PRN PRN Hypoglycemia Sodium Bicarbonate 325 mg 04/10/19 15:16 Sodium Bicarbonate FEEDTUBE PRN PRN For Clogged Feeding Tube Sodium Hypochlorite 1 applic 04/01/19 13:00 05/19/19 22:33 Dakin's Half Strength TP 1 applicatio BID SANCHEZ Administration Nutrition/Malnutrition Assess - Dietary Evaluation Nutrition/Malnutrition Findings: Nutrition Notes Start: 02/22/19 12:51 Freq: Status: Active Protocol: Document 05/19/19 10:41 CC (Rec: 05/19/19 11:30 CC [email or web address]) Co-Sign 05/19/19 10:41 KH Nutrition Notes Initial or Follow up Reassessment Current Diagnosis CKD (stage V CKD),Diabetes, Hypertension,Heart Failure Other Pertinent Diagnosis Sacral PU, ESRD on HD (T/Thurs /Sat), Schizophrenia,Blind in L eye,S/P trach Current Diet Nepro at 50 ml/hr w/Abhilash BID Labs/Tests BUN 64, Creat 2.8 Pertinent Medications Reviewed Height 5 ft 10 in Weight 68.6 kg [place] Body Weight (kg) 75.45 BMI 21.7 Weight change and time frame Wt loss noted. Likely d/t fluid change. Subjective/Other Information Observed Nepro at bedside reading feeding complete. Talked with pt nurse who stated pt is recieving Abhilash. Percent of energy/protein needs met: 100%/100% Burn Absent Trauma Absent Minimum of two criteria No #2 Nutrition Diagnosis Increased nutrient needs ( specify in comment below) Diagnosis Progress(for reassessment Continues documentation) #1 Nutrition Diagnosis Inadequate oral intake Diagnosis Progress(for reassessment Continues documentation) Is patient on ventilator? No Is Patient Ambulatory and/or Out of Bed No REE-([place]-St. Jeor-confined to bed) 1784.016 Kcal/Kg value to use for calculation 32 Approximate Energy Requirements Using 2195 kcal/Kg Additional Notes PRO: 82-103g/day(1.2-1.5g/kg) Fluid: per MD Nutrition Intervention Change Diet Order: Continue TF Nutrition Support: Nepro with Carbsteady 1.8 at 50 ml/hr Flush 200 ml q4hr Kcal 2,160 Protein (gm) 97 Fluid (mL) 872 Add Supplement/Snack (indicate name/kcal Abhilash BID /protein ) Provides kCal: 190 Provides Protein (gm) 5 Goal #1 Continue to meet at least 75% of calorie and protein needs via TF Anticipated Discharge Needs: TF Follow-Up By: 05/21/19 Additional Comments Follow for TF tolerance and Abhilash
[2019-05-20] MEDS ORDERED: SODIUM CHLORIDE*PRIMING MACHINE ONLY FOR DIALYSIS MC ONE (10:39)
[2019-05-20] MEDS: EPOETIN ALFA 20,000 UNIT/1 ML INJ IV PRN (12:08)
--- NOTE | 2019-05-20 12:52 | Progress Note ---
Assessment and Plan 63 y/o male with multiple medical issues admitted with altered mental status, acute respiratory failure requiring mechanical ventilation, now trached, on HD unable to find placement given this combination, now with recurrent fevers. 1. Continue capping trials. Nasal cannula therapy. 2. HD per renal 3. PT/OT if possible 4. CM working on placement 5. No objection to discharge once placement is found Agree with ID note. Patient is a DNR. He is not to be placed back on the ventilator. Acetinetobacter was seen in lungs last time, most likely could resurface their again. Remainder for those who are not as familiar with this case. Patient has been in the hospital on this particular stay almost 3 months. Subjective Date of service: 05/20/19 Principal diagnosis: Respiratory failure, acute on chronic systolic HF, ESRD Interval history: No acute events. Still not placed yet. No fevers yesterday. Objective Vital Signs - 12hr 05/20/19 05/20/19 05/20/19 03:30 08:23 08:35 Temperature 98.9 F 98.8 F 99.1 F Pulse Rate 114 H 92 H 102 H Respiratory 18 18 16 Rate Blood Pressure 99/56 94/54 Blood Pressure 106/82 [Right] O2 Sat by Pulse 100 86 Oximetry 05/20/19 05/20/19 05/20/19 09:00 09:15 09:30 Temperature Pulse Rate 103 H 102 H 106 H Respiratory Rate Blood Pressure 97/58 102/59 102/59 Blood Pressure [Right] O2 Sat by Pulse Oximetry 05/20/19 05/20/19 05/20/19 09:45 10:00 10:15 Temperature Pulse Rate 105 H 108 H 107 H Respiratory Rate Blood Pressure 85/58 75/51 108/52 Blood Pressure [Right] O2 Sat by Pulse Oximetry 05/20/19 05/20/19 05/20/19 10:30 10:45 11:00 Temperature Pulse Rate 107 H 108 H 102 H Respiratory Rate Blood Pressure 116/50 86/63 85/58 Blood Pressure [Right] O2 Sat by Pulse Oximetry 05/20/19 05/20/19 05/20/19 11:15 11:30 11:45 Temperature Pulse Rate 108 H 102 H 150 H Respiratory Rate Blood Pressure 88/51 82/56 100/60 Blood Pressure [Right] O2 Sat by Pulse Oximetry Constitutional: no acute distress, alert Eyes: non-icteric ENT: oropharynx moist Neck: supple Effort: normal Ascultation: Bilateral: diminished breath sounds, other (coarse BS bilaterally) Percussion: Bilateral: not dull Cardiovascular: regular rate and rhythm (no mrg) Gastrointestinal: normoactive bowel sounds, soft, non-tender, non-distended, other (ostomy in place, brown stool) Extremities: no cyanosis, no edema, pink and warm Neurologic: other (mild weakness LUE, o/w nonfocal) Psychiatric: other (unable to assess) CBC and BMP: 05/19/19 01:00 05/19/19 01:00 ABG, PT/INR, D-dimer: ABG POC ABG pH 7.510 (7.35-7.45) H 03/18/19 06:38 ABG pH 7.424 pH Units (7.350-7.450) 03/19/19 04:23 POC ABG pCO2 38.9 (35-45) 03/18/19 06:38 ABG pCO2 48.0 mm Hg 03/19/19 04:23 POC ABG pO2 164 (80-105) H 03/18/19 06:38 ABG pO2 78.3 mm Hg (80.0-90.0) L 03/19/19 04:23 POC ABG HCO3 31.0 (22-26 mml/L) 03/18/19 06:38 POC ABG Total CO2 32 (23-27mmol/L) 03/18/19 06:38 POC ABG O2 Sat 100 03/18/19 06:38 ABG O2 Saturation 97.0 % (95.0-99.0) 03/19/19 04:23 PT/INR, D-dimer PT 16.3 Sec. (12.2-14.9) H 03/01/19 09:39 INR 1.35 (0.87-1.13) H 03/01/19 09:39 D-Dimer 2987.82 ng/mlDDU (0-234) H 02/22/19 05:54 Abnormal lab findings: Abnormal Labs 02/21/19 02/21/19 02/21/19 18:30 18:30 18:30 WBC RBC 3.26 L Hgb 8.8 L Hct 29.0 L MCV MCH 27 L MCHC 30 L RDW 19.1 H Plt Count Lymph % (Auto) 6.1 L [place] % (Auto) Eos % (Auto) Baso % (Auto) Lymph # 0.4 L [place] # Eos # Baso # Seg Neutrophils % 86.2 H Seg Neuts % (Manual) Lymphocytes % (Manual) Eosinophils % (Manual) Seg Neutrophils # Lymphocytes # (Manual) Eosinophils # (Manual) PT INR D-Dimer POC ABG pH POC ABG pCO2 POC ABG pO2 ABG pO2 ABG HCO3 ABG Base Excess ABG Hemoglobin Oxyhemoglobin Sodium 133 L Potassium 3.3 L Chloride 93.1 L Carbon Dioxide 33 H BUN Creatinine Glucose 161 H POC Glucose Calcium Phosphorus Magnesium ALT Alkaline Phosphatase 136 H Total Creatine Kinase 37 L CK-MB (CK-2) Rel Index Troponin T 0.192 H* Albumin 2.4 L LDL Cholesterol Direct 36 L PTH Intact Salicylates Acetaminophen Crossmatch 02/21/19 02/21/19 02/21/19 18:42 20:04 20:04 WBC RBC Hgb Hct MCV MCH MCHC RDW Plt Count Lymph % (Auto) [place] % (Auto) Eos % (Auto) Baso % (Auto) Lymph # [place] # Eos # Baso # Seg Neutrophils % Seg Neuts % (Manual) Lymphocytes % (Manual) Eosinophils % (Manual) Seg Neutrophils # Lymphocytes # (Manual) Eosinophils # (Manual) PT INR D-Dimer POC ABG pH POC ABG pCO2 56.7 H POC ABG pO2 291 H ABG pO2 ABG HCO3 ABG Base Excess ABG Hemoglobin Oxyhemoglobin Sodium Potassium Chloride Carbon Dioxide BUN Creatinine Glucose POC Glucose Calcium Phosphorus Magnesium ALT Alkaline Phosphatase Total Creatine Kinase CK-MB (CK-2) Rel Index Troponin T Albumin LDL Cholesterol Direct PTH Intact Salicylates < 0.3 L Acetaminophen < 5.0 L Crossmatch 02/21/19 02/22/19 02/22/19 22:35 03:42 03:42 WBC RBC 3.20 L Hgb 8.8 L Hct 27.6 L MCV MCH MCHC RDW 18.9 H Plt Count Lymph % (Auto) 7.4 L [place] % (Auto) Eos % (Auto) Baso % (Auto) Lymph # 0.7 L [place] # Eos # Baso # Seg Neutrophils % 84.7 H Seg Neuts % (Manual) Lymphocytes % (Manual) Eosinophils % (Manual) Seg Neutrophils # Lymphocytes # (Manual) Eosinophils # (Manual) PT INR D-Dimer POC ABG pH POC ABG pCO2 POC ABG pO2 ABG pO2 ABG HCO3 ABG Base Excess ABG Hemoglobin Oxyhemoglobin Sodium 134 L Potassium 2.6 L* D Chloride Carbon Dioxide BUN Creatinine Glucose POC Glucose Calcium Phosphorus Magnesium ALT Alkaline Phosphatase Total Creatine Kinase CK-MB (CK-2) Rel Index 5.2 H Troponin T 0.202 H* Albumin LDL Cholesterol Direct PTH Intact Salicylates Acetaminophen Crossmatch 02/22/19 02/22/19 02/22/19 03:42 05:54 09:04 WBC RBC Hgb Hct MCV MCH MCHC RDW Plt Count Lymph % (Auto) [place] % (Auto) Eos % (Auto) Baso % (Auto) Lymph # [place] # Eos # Baso # Seg Neutrophils % Seg Neuts % (Manual) Lymphocytes % (Manual) Eosinophils % (Manual) Seg Neutrophils # Lymphocytes # (Manual) Eosinophils # (Manual) PT INR D-Dimer 2987.82 H POC ABG pH 7.451 H POC ABG pCO2 POC ABG pO2 ABG pO2 ABG HCO3 ABG Base Excess ABG Hemoglobin Oxyhemoglobin Sodium Potassium Chloride Carbon Dioxide BUN Creatinine Glucose POC Glucose Calcium Phosphorus Magnesium ALT Alkaline Phosphatase Total Creatine Kinase CK-MB (CK-2) Rel Index 5.7 H Troponin T 0.193 H* Albumin LDL Cholesterol Direct PTH Intact Salicylates Acetaminophen Crossmatch 02/22/19 02/22/19 02/23/19 10:36 23:56 00:52 WBC RBC Hgb Hct MCV MCH MCHC RDW Plt Count Lymph % (Auto) [place] % (Auto) Eos % (Auto) Baso % (Auto) Lymph # [place] # Eos # Baso # Seg Neutrophils % Seg Neuts % (Manual) Lymphocytes % (Manual) Eosinophils % (Manual) Seg Neutrophils # Lymphocytes # (Manual) Eosinophils # (Manual) PT INR D-Dimer POC ABG pH POC ABG pCO2 POC ABG pO2 ABG pO2 ABG HCO3 ABG Base Excess ABG Hemoglobin Oxyhemoglobin Sodium Potassium 3.1 L Chloride Carbon Dioxide BUN Creatinine Glucose POC Glucose 58 L 111 H Calcium Phosphorus Magnesium ALT Alkaline Phosphatase Total Creatine Kinase CK-MB (CK-2) Rel Index Troponin T Albumin LDL Cholesterol Direct PTH Intact Salicylates Acetaminophen Crossmatch 02/23/19 02/23/1919 05:00 06:35 14:26 WBC RBC Hgb Hct MCV MCH MCHC RDW Plt Count Lymph % (Auto) [place] % (Auto) Eos % (Auto) Baso % (Auto) Lymph # [place] # Eos # Baso # Seg Neutrophils % Seg Neuts % (Manual) Lymphocytes % (Manual) Eosinophils % (Manual) Seg Neutrophils # Lymphocytes # (Manual) Eosinophils # (Manual) PT INR D-Dimer POC ABG pH POC ABG pCO2 POC ABG pO2 ABG pO2 ABG HCO3 ABG Base Excess ABG Hemoglobin Oxyhemoglobin Sodium 135 L Potassium 3.1 L Chloride Carbon Dioxide BUN 21 H Creatinine 2.0 H Glucose 57 L POC Glucose 64 L 62 L Calcium Phosphorus Magnesium ALT Alkaline Phosphatase Total Creatine Kinase CK-MB (CK-2) Rel Index Troponin T Albumin LDL Cholesterol Direct PTH Intact Salicylates Acetaminophen Crossmatch 02/24/19 02/24/19 02/24/19 02:11 04:12 04:55 WBC RBC 2.84 L Hgb 7.8 L Hct 24.5 L MCV MCH MCHC RDW 19.5 H Plt Count Lymph % (Auto) [place] % (Auto) Eos % (Auto) Baso % (Auto) Lymph # [place] # Eos # Baso # Seg Neutrophils % Seg Neuts % (Manual) Lymphocytes % (Manual) Eosinophils % (Manual) Seg Neutrophils # Lymphocytes # (Manual) Eosinophils # (Manual) PT INR D-Dimer POC ABG pH 7.511 H POC ABG pCO2 33.9 L POC ABG pO2 62 L ABG pO2 ABG HCO3 ABG Base Excess ABG Hemoglobin Oxyhemoglobin Sodium Potassium Chloride Carbon Dioxide BUN Creatinine Glucose POC Glucose 69 L Calcium Phosphorus Magnesium ALT Alkaline Phosphatase Total Creatine Kinase CK-MB (CK-2) Rel Index Troponin T Albumin LDL Cholesterol Direct PTH Intact Salicylates Acetaminophen Crossmatch 02/24/19 02/24/19 02/25/19 04:55 05:41 04:45 WBC RBC Hgb Hct MCV MCH MCHC RDW Plt Count Lymph % (Auto) [place] % (Auto) Eos % (Auto) Baso % (Auto) Lymph # [place] # Eos # Baso # Seg Neutrophils % Seg Neuts % (Manual) Lymphocytes % (Manual) Eosinophils % (Manual) Seg Neutrophils # Lymphocytes # (Manual) Eosinophils # (Manual) PT INR D-Dimer POC ABG pH 7.466 H POC ABG pCO2 POC ABG pO2 75 L ABG pO2 ABG HCO3 ABG Base Excess ABG Hemoglobin Oxyhemoglobin Sodium Potassium Chloride Carbon Dioxide BUN Creatinine 1.8 H Glucose 73 L POC Glucose 127 H Calcium Phosphorus Magnesium ALT Alkaline Phosphatase Total Creatine Kinase CK-MB (CK-2) Rel Index Troponin T Albumin LDL Cholesterol Direct PTH Intact Salicylates Acetaminophen Crossmatch 02/25/19 02/25/19 02/26/19 16:34 21:33 03:45 WBC RBC 2.96 L Hgb 8.0 L Hct 25.8 L MCV MCH 27 L MCHC 31 L RDW 20.0 H Plt Count Lymph % (Auto) [place] % (Auto) Eos % (Auto) Baso % (Auto) Lymph # [place] # Eos # Baso # Seg Neutrophils % Seg Neuts % (Manual) Lymphocytes % (Manual) Eosinophils % (Manual) Seg Neutrophils # Lymphocytes # (Manual) Eosinophils # (Manual) PT INR D-Dimer POC ABG pH POC ABG pCO2 POC ABG pO2 ABG pO2 ABG HCO3 ABG Base Excess ABG Hemoglobin Oxyhemoglobin Sodium Potassium Chloride Carbon Dioxide BUN Creatinine Glucose POC Glucose 141 H 106 H Calcium Phosphorus Magnesium ALT Alkaline Phosphatase Total Creatine Kinase CK-MB (CK-2) Rel Index Troponin T Albumin LDL Cholesterol Direct PTH Intact Salicylates Acetaminophen Crossmatch 02/26/19 02/26/19 02/26/19 03:45 04:13 07:53 WBC RBC Hgb Hct MCV MCH MCHC RDW Plt Count Lymph % (Auto) [place] % (Auto) Eos % (Auto) Baso % (Auto) Lymph # [place] # Eos # Baso # Seg Neutrophils % Seg Neuts % (Manual) Lymphocytes % (Manual) Eosinophils % (Manual) Seg Neutrophils # Lymphocytes # (Manual) Eosinophils # (Manual) PT INR D-Dimer POC ABG pH 7.470 H POC ABG pCO2 POC ABG pO2 ABG pO2 ABG HCO3 ABG Base Excess ABG Hemoglobin Oxyhemoglobin Sodium Potassium Chloride Carbon Dioxide BUN Creatinine 1.8 H Glucose POC Glucose 110 H Calcium Phosphorus Magnesium ALT Alkaline Phosphatase Total Creatine Kinase CK-MB (CK-2) Rel Index Troponin T Albumin LDL Cholesterol Direct PTH Intact Salicylates Acetaminophen Crossmatch 02/26/19 02/26/19 02/27/19 11:56 17:43 00:12 WBC RBC Hgb Hct MCV MCH MCHC RDW Plt Count Lymph % (Auto) [place] % (Auto) Eos % (Auto) Baso % (Auto) Lymph # [place] # Eos # Baso # Seg Neutrophils % Seg Neuts % (Manual) Lymphocytes % (Manual) Eosinophils % (Manual) Seg Neutrophils # Lymphocytes # (Manual) Eosinophils # (Manual) PT INR D-Dimer POC ABG pH POC ABG pCO2 POC ABG pO2 ABG pO2 ABG HCO3 ABG Base Excess ABG Hemoglobin Oxyhemoglobin Sodium Potassium Chloride Carbon Dioxide BUN Creatinine Glucose POC Glucose 112 H 127 H 127 H Calcium Phosphorus Magnesium ALT Alkaline Phosphatase Total Creatine Kinase CK-MB (CK-2) Rel Index Troponin T Albumin LDL Cholesterol Direct PTH Intact Salicylates Acetaminophen Crossmatch 02/27/19 02/27/19 02/27/19 04:35 13:15 18:02 WBC RBC Hgb Hct MCV MCH MCHC RDW Plt Count Lymph % (Auto) [place] % (Auto) Eos % (Auto) Baso % (Auto) Lymph # [place] # Eos # Baso # Seg Neutrophils % Seg Neuts % (Manual) Lymphocytes % (Manual) Eosinophils % (Manual) Seg Neutrophils # Lymphocytes # (Manual) Eosinophils # (Manual) PT INR D-Dimer POC ABG pH 7.483 H POC ABG pCO2 POC ABG pO2 61 L ABG pO2 ABG HCO3 ABG Base Excess ABG Hemoglobin Oxyhemoglobin Sodium Potassium Chloride Carbon Dioxide BUN Creatinine Glucose POC Glucose 143 H 106 H Calcium Phosphorus Magnesium ALT Alkaline Phosphatase Total Creatine Kinase CK-MB (CK-2) Rel Index Troponin T Albumin LDL Cholesterol Direct PTH Intact Salicylates Acetaminophen Crossmatch 02/28/19 02/28/19 02/28/19 05:50 11:59 17:52 WBC RBC Hgb Hct MCV MCH MCHC RDW Plt Count Lymph % (Auto) [place] % (Auto) Eos % (Auto) Baso % (Auto) Lymph # [place] # Eos # Baso # Seg Neutrophils % Seg Neuts % (Manual) Lymphocytes % (Manual) Eosinophils % (Manual) Seg Neutrophils # Lymphocytes # (Manual) Eosinophils # (Manual) PT INR D-Dimer POC ABG pH POC ABG pCO2 POC ABG pO2 ABG pO2 ABG HCO3 ABG Base Excess ABG Hemoglobin Oxyhemoglobin Sodium Potassium Chloride Carbon Dioxide BUN Creatinine Glucose POC Glucose 134 H 128 H 142 H Calcium Phosphorus Magnesium ALT Alkaline Phosphatase Total Creatine Kinase CK-MB (CK-2) Rel Index Troponin T Albumin LDL Cholesterol Direct PTH Intact Salicylates Acetaminophen Crossmatch 02/28/19 03/01/19 03/01/19 23:13 05:40 09:39 WBC RBC Hgb Hct MCV MCH MCHC RDW Plt Count Lymph % (Auto) [place] % (Auto) Eos % (Auto) Baso % (Auto) Lymph # [place] # Eos # Baso # Seg Neutrophils % Seg Neuts % (Manual) Lymphocytes % (Manual) Eosinophils % (Manual) Seg Neutrophils # Lymphocytes # (Manual) Eosinophils # (Manual) PT 16.3 H INR 1.35 H D-Dimer POC ABG pH POC ABG pCO2 POC ABG pO2 ABG pO2 ABG HCO3 ABG Base Excess ABG Hemoglobin Oxyhemoglobin Sodium Potassium Chloride Carbon Dioxide BUN Creatinine Glucose POC Glucose 112 H 111 H Calcium Phosphorus Magnesium ALT Alkaline Phosphatase Total Creatine Kinase CK-MB (CK-2) Rel Index Troponin T Albumin LDL Cholesterol Direct PTH Intact Salicylates Acetaminophen Crossmatch 03/01/19 03/01/19 03/01/19 11:56 13:54 17:59 WBC RBC Hgb Hct MCV MCH MCHC RDW Plt Count Lymph % (Auto) [place] % (Auto) Eos % (Auto) Baso % (Auto) Lymph # [place] # Eos # Baso # Seg Neutrophils % Seg Neuts % (Manual) Lymphocytes % (Manual) Eosinophils % (Manual) Seg Neutrophils # Lymphocytes # (Manual) Eosinophils # (Manual) PT INR D-Dimer POC ABG pH POC ABG pCO2 POC ABG pO2 ABG pO2 ABG HCO3 ABG Base Excess ABG Hemoglobin Oxyhemoglobin Sodium Potassium Chloride Carbon Dioxide BUN 33 H Creatinine 2.8 H D Glucose 176 H POC Glucose 199 H 147 H Calcium Phosphorus Magnesium ALT Alkaline Phosphatase Total Creatine Kinase CK-MB (CK-2) Rel Index Troponin T Albumin LDL Cholesterol Direct PTH Intact Salicylates Acetaminophen Crossmatch 03/02/19 03/02/19 03/02/19 05:15 05:15 05:15 WBC RBC 2.73 L Hgb 7.4 L Hct 23.0 L MCV MCH 27 L MCHC RDW 19.9 H Plt Count Lymph % (Auto) [place] % (Auto) 7.9 H Eos % (Auto) 7.6 H Baso % (Auto) Lymph # 1.0 L [place] # Eos # 0.5 H Baso # Seg Neutrophils % Seg Neuts % (Manual) Lymphocytes % (Manual) Eosinophils % (Manual) Seg Neutrophils # Lymphocytes # (Manual) Eosinophils # (Manual) PT INR D-Dimer POC ABG pH POC ABG pCO2 POC ABG pO2 ABG pO2 ABG HCO3 ABG Base Excess ABG Hemoglobin Oxyhemoglobin Sodium Potassium Chloride Carbon Dioxide BUN 43 H Creatinine 3.2 H Glucose POC Glucose Calcium Phosphorus 2.30 L Magnesium ALT Alkaline Phosphatase Total Creatine Kinase CK-MB (CK-2) Rel Index Troponin T Albumin LDL Cholesterol Direct PTH Intact 267.6 H Salicylates Acetaminophen Crossmatch 03/02/19 03/02/19 03/03/19 12:32 18:20 13:30 WBC RBC Hgb Hct MCV MCH MCHC RDW Plt Count Lymph % (Auto) [place] % (Auto) Eos % (Auto) Baso % (Auto) Lymph # [place] # Eos # Baso # Seg Neutrophils % Seg Neuts % (Manual) Lymphocytes % (Manual) Eosinophils % (Manual) Seg Neutrophils # Lymphocytes # (Manual) Eosinophils # (Manual) PT INR D-Dimer POC ABG pH POC ABG pCO2 POC ABG pO2 ABG pO2 ABG HCO3 ABG Base Excess ABG Hemoglobin Oxyhemoglobin Sodium Potassium Chloride 97.3 L Carbon Dioxide BUN 26 H Creatinine 2.2 H Glucose 73 L POC Glucose 111 H 156 H Calcium Phosphorus Magnesium ALT Alkaline Phosphatase Total Creatine Kinase CK-MB (CK-2) Rel Index Troponin T Albumin LDL Cholesterol Direct PTH Intact Salicylates Acetaminophen Crossmatch 03/04/19 03/04/19 03/04/19 00:02 05:37 05:40 WBC RBC 2.63 L Hgb 7.2 L Hct 22.2 L MCV MCH MCHC RDW 20.2 H Plt Count Lymph % (Auto) 10.5 L [place] % (Auto) Eos % (Auto) 4.6 H Baso % (Auto) Lymph # 0.7 L [place] # Eos # Baso # Seg Neutrophils % 76.9 H Seg Neuts % (Manual) Lymphocytes % (Manual) Eosinophils % (Manual) Seg Neutrophils # Lymphocytes # (Manual) Eosinophils # (Manual) PT INR D-Dimer POC ABG pH POC ABG pCO2 POC ABG pO2 ABG pO2 ABG HCO3 ABG Base Excess ABG Hemoglobin Oxyhemoglobin Sodium Potassium Chloride Carbon Dioxide BUN Creatinine Glucose POC Glucose 136 H 123 H Calcium Phosphorus Magnesium ALT Alkaline Phosphatase Total Creatine Kinase CK-MB (CK-2) Rel Index Troponin T Albumin LDL Cholesterol Direct PTH Intact Salicylates Acetaminophen Crossmatch 03/04/19 03/04/19 03/04/19 05:40 11:39 23:20 WBC RBC Hgb Hct MCV MCH MCHC RDW Plt Count Lymph % (Auto) [place] % (Auto) Eos % (Auto) Baso % (Auto) Lymph # [place] # Eos # Baso # Seg Neutrophils % Seg Neuts % (Manual) Lymphocytes % (Manual) Eosinophils % (Manual) Seg Neutrophils # Lymphocytes # (Manual) Eosinophils # (Manual) PT INR D-Dimer POC ABG pH POC ABG pCO2 POC ABG pO2 ABG pO2 ABG HCO3 ABG Base Excess ABG Hemoglobin Oxyhemoglobin Sodium Potassium Chloride Carbon Dioxide BUN 34 H Creatinine 2.7 H Glucose 114 H POC Glucose 175 H 151 H Calcium Phosphorus Magnesium ALT Alkaline Phosphatase Total Creatine Kinase CK-MB (CK-2) Rel Index Troponin T Albumin LDL Cholesterol Direct PTH Intact Salicylates Acetaminophen Crossmatch 03/05/19 03/05/19 03/05/19 05:37 12:08 17:11 WBC RBC Hgb Hct MCV MCH MCHC RDW Plt Count Lymph % (Auto) [place] % (Auto) Eos % (Auto) Baso % (Auto) Lymph # [place] # Eos # Baso # Seg Neutrophils % Seg Neuts % (Manual) Lymphocytes % (Manual) Eosinophils % (Manual) Seg Neutrophils # Lymphocytes # (Manual) Eosinophils # (Manual) PT INR D-Dimer POC ABG pH POC ABG pCO2 POC ABG pO2 ABG pO2 ABG HCO3 ABG Base Excess ABG Hemoglobin Oxyhemoglobin Sodium Potassium Chloride Carbon Dioxide BUN Creatinine Glucose POC Glucose 134 H 135 H 135 H Calcium Phosphorus Magnesium ALT Alkaline Phosphatase Total Creatine Kinase CK-MB (CK-2) Rel Index Troponin T Albumin LDL Cholesterol Direct PTH Intact Salicylates Acetaminophen Crossmatch 03/06/19 03/06/19 03/06/19 00:16 13:05 18:09 WBC RBC Hgb Hct MCV MCH MCHC RDW Plt Count Lymph % (Auto) [place] % (Auto) Eos % (Auto) Baso % (Auto) Lymph # [place] # Eos # Baso # Seg Neutrophils % Seg Neuts % (Manual) Lymphocytes % (Manual) Eosinophils % (Manual) Seg Neutrophils # Lymphocytes # (Manual) Eosinophils # (Manual) PT INR D-Dimer POC ABG pH POC ABG pCO2 POC ABG pO2 ABG pO2 ABG HCO3 ABG Base Excess ABG Hemoglobin Oxyhemoglobin Sodium Potassium Chloride Carbon Dioxide BUN Creatinine Glucose POC Glucose 117 H 113 H 131 H Calcium Phosphorus Magnesium ALT Alkaline Phosphatase Total Creatine Kinase CK-MB (CK-2) Rel Index Troponin T Albumin LDL Cholesterol Direct PTH Intact Salicylates Acetaminophen Crossmatch 03/07/19 03/08/19 03/08/19 05:25 05:33 16:00 WBC RBC 2.44 L Hgb 6.6 L Hct 20.8 L MCV MCH 27 L MCHC RDW 19.2 H Plt Count Lymph % (Auto) [place] % (Auto) Eos % (Auto) 8.6 H Baso % (Auto) Lymph # 0.8 L [place] # Eos # 0.5 H Baso # Seg Neutrophils % 70.7 H Seg Neuts % (Manual) Lymphocytes % (Manual) Eosinophils % (Manual) Seg Neutrophils # Lymphocytes # (Manual) Eosinophils # (Manual) PT INR D-Dimer POC ABG pH POC ABG pCO2 POC ABG pO2 ABG pO2 ABG HCO3 ABG Base Excess ABG Hemoglobin Oxyhemoglobin Sodium Potassium Chloride Carbon Dioxide BUN Creatinine Glucose POC Glucose 106 H 108 H Calcium Phosphorus Magnesium ALT Alkaline Phosphatase Total Creatine Kinase CK-MB (CK-2) Rel Index Troponin T Albumin LDL Cholesterol Direct PTH Intact Salicylates Acetaminophen Crossmatch 03/08/19 03/08/19 03/08/19 16:00 18:38 Unknown WBC RBC Hgb Hct MCV MCH MCHC RDW Plt Count Lymph % (Auto) [place] % (Auto) Eos % (Auto) Baso % (Auto) Lymph # [place] # Eos # Baso # Seg Neutrophils % Seg Neuts % (Manual) Lymphocytes % (Manual) Eosinophils % (Manual) Seg Neutrophils # Lymphocytes # (Manual) Eosinophils # (Manual) PT INR D-Dimer POC ABG pH POC ABG pCO2 POC ABG pO2 ABG pO2 ABG HCO3 ABG Base Excess ABG Hemoglobin Oxyhemoglobin Sodium Potassium 5.4 H D Chloride Carbon Dioxide BUN 47 H Creatinine 2.6 H Glucose POC Glucose 123 H Calcium Phosphorus Magnesium ALT < 5 L Alkaline Phosphatase Total Creatine Kinase CK-MB (CK-2) Rel Index Troponin T Albumin 2.2 L LDL Cholesterol Direct PTH Intact Salicylates Acetaminophen Crossmatch See Detail 03/09/19 03/09/19 03/09/19 10:48 12:28 13:53 WBC RBC 2.85 L Hgb 7.7 L Hct 24.2 L MCV MCH 27 L MCHC RDW 18.7 H Plt Count Lymph % (Auto) [place] % (Auto) Eos % (Auto) Baso % (Auto) Lymph # [place] # Eos # Baso # Seg Neutrophils % Seg Neuts % (Manual) Lymphocytes % (Manual) Eosinophils % (Manual) Seg Neutrophils # Lymphocytes # (Manual) Eosinophils # (Manual) PT INR D-Dimer POC ABG pH POC ABG pCO2 POC ABG pO2 ABG pO2 ABG HCO3 30.5 H ABG Base Excess 5.6 H ABG Hemoglobin 8.1 L Oxyhemoglobin 93.8 L Sodium Potassium Chloride Carbon Dioxide BUN Creatinine Glucose POC Glucose 114 H Calcium Phosphorus Magnesium ALT Alkaline Phosphatase Total Creatine Kinase CK-MB (CK-2) Rel Index Troponin T Albumin LDL Cholesterol Direct PTH Intact Salicylates Acetaminophen Crossmatch 03/09/19 03/09/19 03/10/19 17:58 23:53 12:01 WBC RBC Hgb Hct MCV MCH MCHC RDW Plt Count Lymph % (Auto) [place] % (Auto) Eos % (Auto) Baso % (Auto) Lymph # [place] # Eos # Baso # Seg Neutrophils % Seg Neuts % (Manual) Lymphocytes % (Manual) Eosinophils % (Manual) Seg Neutrophils # Lymphocytes # (Manual) Eosinophils # (Manual) PT INR D-Dimer POC ABG pH POC ABG pCO2 POC ABG pO2 ABG pO2 ABG HCO3 ABG Base Excess ABG Hemoglobin Oxyhemoglobin Sodium Potassium Chloride Carbon Dioxide BUN Creatinine Glucose POC Glucose 108 H 128 H 144 H Calcium Phosphorus Magnesium ALT Alkaline Phosphatase Total Creatine Kinase CK-MB (CK-2) Rel Index Troponin T Albumin LDL Cholesterol Direct PTH Intact Salicylates Acetaminophen Crossmatch 03/10/19 03/11/19 03/11/19 16:50 00:24 05:02 WBC RBC Hgb Hct MCV MCH MCHC RDW Plt Count Lymph % (Auto) [place] % (Auto) Eos % (Auto) Baso % (Auto) Lymph # [place] # Eos # Baso # Seg Neutrophils % Seg Neuts % (Manual) Lymphocytes % (Manual) Eosinophils % (Manual) Seg Neutrophils # Lymphocytes # (Manual) Eosinophils # (Manual) PT INR D-Dimer POC ABG pH POC ABG pCO2 POC ABG pO2 ABG pO2 ABG HCO3 ABG Base Excess ABG Hemoglobin Oxyhemoglobin Sodium Potassium Chloride Carbon Dioxide BUN Creatinine Glucose POC Glucose 147 H 123 H 120 H Calcium Phosphorus Magnesium ALT Alkaline Phosphatase Total Creatine Kinase CK-MB (CK-2) Rel Index Troponin T Albumin LDL Cholesterol Direct PTH Intact Salicylates Acetaminophen Crossmatch 03/11/19 03/11/19 03/11/19 11:56 12:20 18:37 WBC RBC Hgb Hct MCV MCH MCHC RDW Plt Count Lymph % (Auto) [place] % (Auto) Eos % (Auto) Baso % (Auto) Lymph # [place] # Eos # Baso # Seg Neutrophils % Seg Neuts % (Manual) Lymphocytes % (Manual) Eosinophils % (Manual) Seg Neutrophils # Lymphocytes # (Manual) Eosinophils # (Manual) PT INR D-Dimer POC ABG pH POC ABG pCO2 POC ABG pO2 ABG pO2 ABG HCO3 ABG Base Excess ABG Hemoglobin Oxyhemoglobin Sodium Potassium 5.2 H Chloride Carbon Dioxide BUN Creatinine Glucose POC Glucose 123 H 125 H Calcium Phosphorus Magnesium ALT Alkaline Phosphatase Total Creatine Kinase CK-MB (CK-2) Rel Index Troponin T Albumin LDL Cholesterol Direct PTH Intact Salicylates Acetaminophen Crossmatch 03/11/19 03/12/19 03/12/19 22:52 12:04 18:25 WBC RBC Hgb Hct MCV MCH MCHC RDW Plt Count Lymph % (Auto) [place] % (Auto) Eos % (Auto) Baso % (Auto) Lymph # [place] # Eos # Baso # Seg Neutrophils % Seg Neuts % (Manual) Lymphocytes % (Manual) Eosinophils % (Manual) Seg Neutrophils # Lymphocytes # (Manual) Eosinophils # (Manual) PT INR D-Dimer POC ABG pH POC ABG pCO2 POC ABG pO2 ABG pO2 ABG HCO3 ABG Base Excess ABG Hemoglobin Oxyhemoglobin Sodium Potassium Chloride Carbon Dioxide BUN Creatinine Glucose POC Glucose 110 H 106 H 118 H Calcium Phosphorus Magnesium ALT Alkaline Phosphatase Total Creatine Kinase CK-MB (CK-2) Rel Index Troponin T Albumin LDL Cholesterol Direct PTH Intact Salicylates Acetaminophen Crossmatch 03/12/19 03/13/19 03/13/19 23:36 04:38 04:38 WBC RBC 2.95 L Hgb 7.9 L Hct 24.9 L MCV MCH 27 L MCHC RDW 19.9 H Plt Count Lymph % (Auto) 11.1 L [place] % (Auto) 8.1 H Eos % (Auto) 4.4 H Baso % (Auto) Lymph # 0.9 L [place] # Eos # Baso # Seg Neutrophils % 75.4 H Seg Neuts % (Manual) Lymphocytes % (Manual) Eosinophils % (Manual) Seg Neutrophils # Lymphocytes # (Manual) Eosinophils # (Manual) PT INR D-Dimer POC ABG pH POC ABG pCO2 POC ABG pO2 ABG pO2 ABG HCO3 ABG Base Excess ABG Hemoglobin Oxyhemoglobin Sodium 136 L Potassium 5.1 H Chloride 93.8 L Carbon Dioxide BUN 48 H Creatinine 2.7 H Glucose 102 H POC Glucose 115 H Calcium Phosphorus Magnesium ALT < 5 L Alkaline Phosphatase 143 H Total Creatine Kinase CK-MB (CK-2) Rel Index Troponin T Albumin 2.5 L LDL Cholesterol Direct PTH Intact Salicylates Acetaminophen Crossmatch 03/13/19 03/13/19 03/13/19 05:33 13:37 18:03 WBC RBC Hgb Hct MCV MCH MCHC RDW Plt Count Lymph % (Auto) [place] % (Auto) Eos % (Auto) Baso % (Auto) Lymph # [place] # Eos # Baso # Seg Neutrophils % Seg Neuts % (Manual) Lymphocytes % (Manual) Eosinophils % (Manual) Seg Neutrophils # Lymphocytes # (Manual) Eosinophils # (Manual) PT INR D-Dimer POC ABG pH POC ABG pCO2 POC ABG pO2 ABG pO2 ABG HCO3 ABG Base Excess ABG Hemoglobin Oxyhemoglobin Sodium Potassium Chloride Carbon Dioxide BUN Creatinine Glucose POC Glucose 140 H 150 H 158 H Calcium Phosphorus Magnesium ALT Alkaline Phosphatase Total Creatine Kinase CK-MB (CK-2) Rel Index Troponin T Albumin LDL Cholesterol Direct PTH Intact Salicylates Acetaminophen Crossmatch 03/13/19 03/14/19 03/14/19 23:32 05:24 12:20 WBC RBC Hgb Hct MCV MCH MCHC RDW Plt Count Lymph % (Auto) [place] % (Auto) Eos % (Auto) Baso % (Auto) Lymph # [place] # Eos # Baso # Seg Neutrophils % Seg Neuts % (Manual) Lymphocytes % (Manual) Eosinophils % (Manual) Seg Neutrophils # Lymphocytes # (Manual) Eosinophils # (Manual) PT INR D-Dimer POC ABG pH POC ABG pCO2 POC ABG pO2 ABG pO2 ABG HCO3 ABG Base Excess ABG Hemoglobin Oxyhemoglobin Sodium Potassium Chloride Carbon Dioxide BUN Creatinine Glucose POC Glucose 162 H 146 H 127 H Calcium Phosphorus Magnesium ALT Alkaline Phosphatase Total Creatine Kinase CK-MB (CK-2) Rel Index Troponin T Albumin LDL Cholesterol Direct PTH Intact Salicylates Acetaminophen Crossmatch 03/14/19 03/14/19 03/15/19 18:05 23:57 04:38 WBC 12.8 H RBC 3.11 L Hgb 8.1 L Hct 26.5 L MCV MCH 26 L MCHC 31 L RDW 19.7 H Plt Count Lymph % (Auto) 4.4 L [place] % (Auto) 7.4 H Eos % (Auto) Baso % (Auto) Lymph # 0.6 L [place] # 0.9 H Eos # Baso # Seg Neutrophils % 87.3 H Seg Neuts % (Manual) Lymphocytes % (Manual) Eosinophils % (Manual) Seg Neutrophils # 11.2 H Lymphocytes # (Manual) Eosinophils # (Manual) PT INR D-Dimer POC ABG pH POC ABG pCO2 POC ABG pO2 ABG pO2 ABG HCO3 ABG Base Excess ABG Hemoglobin Oxyhemoglobin Sodium Potassium Chloride Carbon Dioxide BUN Creatinine Glucose POC Glucose 142 H 155 H Calcium Phosphorus Magnesium ALT Alkaline Phosphatase Total Creatine Kinase CK-MB (CK-2) Rel Index Troponin T Albumin LDL Cholesterol Direct PTH Intact Salicylates Acetaminophen Crossmatch 03/15/19 03/15/19 03/15/19 04:38 05:31 11:32 WBC RBC Hgb Hct MCV MCH MCHC RDW Plt Count Lymph % (Auto) [place] % (Auto) Eos % (Auto) Baso % (Auto) Lymph # [place] # Eos # Baso # Seg Neutrophils % Seg Neuts % (Manual) Lymphocytes % (Manual) Eosinophils % (Manual) Seg Neutrophils # Lymphocytes # (Manual) Eosinophils # (Manual) PT INR D-Dimer POC ABG pH POC ABG pCO2 POC ABG pO2 ABG pO2 ABG HCO3 ABG Base Excess ABG Hemoglobin Oxyhemoglobin Sodium 135 L Potassium Chloride 91.9 L Carbon Dioxide BUN 54 H Creatinine 2.8 H Glucose 128 H POC Glucose 160 H 109 H Calcium 11.1 H Phosphorus Magnesium ALT Alkaline Phosphatase 161 H Total Creatine Kinase CK-MB (CK-2) Rel Index Troponin T Albumin 2.3 L LDL Cholesterol Direct PTH Intact Salicylates Acetaminophen Crossmatch 03/15/19 03/15/1919 18:15 23:41 05:40 WBC RBC Hgb Hct MCV MCH MCHC RDW Plt Count Lymph % (Auto) [place] % (Auto) Eos % (Auto) Baso % (Auto) Lymph # [place] # Eos # Baso # Seg Neutrophils % Seg Neuts % (Manual) Lymphocytes % (Manual) Eosinophils % (Manual) Seg Neutrophils # Lymphocytes # (Manual) Eosinophils # (Manual) PT INR D-Dimer POC ABG pH POC ABG pCO2 POC ABG pO2 ABG pO2 ABG HCO3 ABG Base Excess ABG Hemoglobin Oxyhemoglobin Sodium Potassium Chloride Carbon Dioxide BUN Creatinine Glucose POC Glucose 151 H 110 H 163 H Calcium Phosphorus Magnesium ALT Alkaline Phosphatase Total Creatine Kinase CK-MB (CK-2) Rel Index Troponin T Albumin LDL Cholesterol Direct PTH Intact Salicylates Acetaminophen Crossmatch 03/16/19 03/16/19 03/16/19 11:55 17:04 23:58 WBC RBC Hgb Hct MCV MCH MCHC RDW Plt Count Lymph % (Auto) [place] % (Auto) Eos % (Auto) Baso % (Auto) Lymph # [place] # Eos # Baso # Seg Neutrophils % Seg Neuts % (Manual) Lymphocytes % (Manual) Eosinophils % (Manual) Seg Neutrophils # Lymphocytes # (Manual) Eosinophils # (Manual) PT INR D-Dimer POC ABG pH POC ABG pCO2 POC ABG pO2 ABG pO2 ABG HCO3 ABG Base Excess ABG Hemoglobin Oxyhemoglobin Sodium Potassium Chloride Carbon Dioxide BUN Creatinine Glucose POC Glucose 114 H 147 H 192 H Calcium Phosphorus Magnesium ALT Alkaline Phosphatase Total Creatine Kinase CK-MB (CK-2) Rel Index Troponin T Albumin LDL Cholesterol Direct PTH Intact Salicylates Acetaminophen Crossmatch 03/17/19 03/17/19 03/17/19 05:53 11:17 17:01 WBC RBC Hgb Hct MCV MCH MCHC RDW Plt Count Lymph % (Auto) [place] % (Auto) Eos % (Auto) Baso % (Auto) Lymph # [place] # Eos # Baso # Seg Neutrophils % Seg Neuts % (Manual) Lymphocytes % (Manual) Eosinophils % (Manual) Seg Neutrophils # Lymphocytes # (Manual) Eosinophils # (Manual) PT INR D-Dimer POC ABG pH POC ABG pCO2 POC ABG pO2 ABG pO2 ABG HCO3 ABG Base Excess ABG Hemoglobin Oxyhemoglobin Sodium Potassium Chloride Carbon Dioxide BUN Creatinine Glucose POC Glucose 151 H 161 H 152 H Calcium Phosphorus Magnesium ALT Alkaline Phosphatase Total Creatine Kinase CK-MB (CK-2) Rel Index Troponin T Albumin LDL Cholesterol Direct PTH Intact Salicylates Acetaminophen Crossmatch 03/17/19 03/18/19 03/18/19 21:47 04:15 04:44 WBC RBC Hgb Hct MCV MCH MCHC RDW Plt Count Lymph % (Auto) [place] % (Auto) Eos % (Auto) Baso % (Auto) Lymph # [place] # Eos # Baso # Seg Neutrophils % Seg Neuts % (Manual) Lymphocytes % (Manual) Eosinophils % (Manual) Seg Neutrophils # Lymphocytes # (Manual) Eosinophils # (Manual) PT INR D-Dimer POC ABG pH POC ABG pCO2 POC ABG pO2 ABG pO2 102.8 H ABG HCO3 28.3 H ABG Base Excess ABG Hemoglobin 10.4 L Oxyhemoglobin 94.5 L Sodium Potassium Chloride Carbon Dioxide BUN Creatinine Glucose POC Glucose 170 H 150 H Calcium Phosphorus Magnesium ALT Alkaline Phosphatase Total Creatine Kinase CK-MB (CK-2) Rel Index Troponin T Albumin LDL Cholesterol Direct PTH Intact Salicylates Acetaminophen Crossmatch 03/18/19 03/18/19 03/18/19 06:38 12:12 17:47 WBC RBC Hgb Hct MCV MCH MCHC RDW Plt Count Lymph % (Auto) [place] % (Auto) Eos % (Auto) Baso % (Auto) Lymph # [place] # Eos # Baso # Seg Neutrophils % Seg Neuts % (Manual) Lymphocytes % (Manual) Eosinophils % (Manual) Seg Neutrophils # Lymphocytes # (Manual) Eosinophils # (Manual) PT INR D-Dimer POC ABG pH 7.510 H POC ABG pCO2 POC ABG pO2 164 H ABG pO2 ABG HCO3 ABG Base Excess ABG Hemoglobin Oxyhemoglobin Sodium Potassium Chloride Carbon Dioxide BUN Creatinine Glucose POC Glucose 145 H 149 H Calcium Phosphorus Magnesium ALT Alkaline Phosphatase Total Creatine Kinase CK-MB (CK-2) Rel Index Troponin T Albumin LDL Cholesterol Direct PTH Intact Salicylates Acetaminophen Crossmatch 03/18/19 03/19/19 03/19/19 23:25 01:11 04:23 WBC 15.6 H RBC 2.51 L Hgb 6.5 L Hct 21.6 L MCV MCH 26 L MCHC 30 L RDW 19.8 H Plt Count Lymph % (Auto) 6.0 L [place] % (Auto) Eos % (Auto) Baso % (Auto) Lymph # 0.9 L [place] # 1.0 H Eos # Baso # Seg Neutrophils % 85.5 H Seg Neuts % (Manual) Lymphocytes % (Manual) Eosinophils % (Manual) Seg Neutrophils # 13.4 H Lymphocytes # (Manual) Eosinophils # (Manual) PT INR D-Dimer POC ABG pH POC ABG pCO2 POC ABG pO2 ABG pO2 78.3 L ABG HCO3 30.7 H ABG Base Excess 5.8 H ABG Hemoglobin 5.8 L Oxyhemoglobin 94.6 L Sodium Potassium Chloride Carbon Dioxide BUN Creatinine Glucose POC Glucose 190 H Calcium Phosphorus Magnesium ALT Alkaline Phosphatase Total Creatine Kinase CK-MB (CK-2) Rel Index Troponin T Albumin LDL Cholesterol Direct PTH Intact Salicylates Acetaminophen Crossmatch 03/19/19 03/19/19 03/19/19 05:22 05:35 08:54 WBC RBC Hgb Hct MCV MCH MCHC RDW Plt Count Lymph % (Auto) [place] % (Auto) Eos % (Auto) Baso % (Auto) Lymph # [place] # Eos # Baso # Seg Neutrophils % Seg Neuts % (Manual) Lymphocytes % (Manual) Eosinophils % (Manual) Seg Neutrophils # Lymphocytes # (Manual) Eosinophils # (Manual) PT INR D-Dimer POC ABG pH POC ABG pCO2 POC ABG pO2 ABG pO2 ABG HCO3 ABG Base Excess ABG Hemoglobin Oxyhemoglobin Sodium Potassium Chloride Carbon Dioxide BUN Creatinine Glucose POC Glucose 167 H Calcium Phosphorus Magnesium ALT Alkaline Phosphatase Total Creatine Kinase CK-MB (CK-2) Rel Index Troponin T Albumin LDL Cholesterol Direct PTH Intact Salicylates Acetaminophen Crossmatch See Detail See Detail 03/19/19 03/19/19 03/19/19 12:36 17:02 23:25 WBC RBC Hgb Hct MCV MCH MCHC RDW Plt Count Lymph % (Auto) [place] % (Auto) Eos % (Auto) Baso % (Auto) Lymph # [place] # Eos # Baso # Seg Neutrophils % Seg Neuts % (Manual) Lymphocytes % (Manual) Eosinophils % (Manual) Seg Neutrophils # Lymphocytes # (Manual) Eosinophils # (Manual) PT INR D-Dimer POC ABG pH POC ABG pCO2 POC ABG pO2 ABG pO2 ABG HCO3 ABG Base Excess ABG Hemoglobin Oxyhemoglobin Sodium Potassium Chloride Carbon Dioxide BUN Creatinine Glucose POC Glucose 167 H 135 H 136 H Calcium Phosphorus Magnesium ALT Alkaline Phosphatase Total Creatine Kinase CK-MB (CK-2) Rel Index Troponin T Albumin LDL Cholesterol Direct PTH Intact Salicylates Acetaminophen Crossmatch 03/20/19 03/20/19 03/20/19 05:38 08:40 08:40 WBC RBC 2.61 L Hgb 7.1 L Hct 22.0 L MCV MCH 27 L MCHC RDW 19.6 H Plt Count Lymph % (Auto) 8.2 L [place] % (Auto) 8.3 H Eos % (Auto) 5.7 H Baso % (Auto) Lymph # 0.8 L [place] # Eos # 0.5 H Baso # Seg Neutrophils % 77.3 H Seg Neuts % (Manual) Lymphocytes % (Manual) Eosinophils % (Manual) Seg Neutrophils # Lymphocytes # (Manual) Eosinophils # (Manual) PT INR D-Dimer POC ABG pH POC ABG pCO2 POC ABG pO2 ABG pO2 ABG HCO3 ABG Base Excess ABG Hemoglobin Oxyhemoglobin Sodium Potassium Chloride 95.9 L Carbon Dioxide BUN 69 H Creatinine 2.8 H Glucose 115 H POC Glucose 134 H Calcium 10.5 H Phosphorus Magnesium ALT Alkaline Phosphatase Total Creatine Kinase CK-MB (CK-2) Rel Index Troponin T Albumin LDL Cholesterol Direct PTH Intact Salicylates Acetaminophen Crossmatch 03/20/19 03/20/19 03/20/19 12:13 18:04 23:49 WBC RBC Hgb Hct MCV MCH MCHC RDW Plt Count Lymph % (Auto) [place] % (Auto) Eos % (Auto) Baso % (Auto) Lymph # [place] # Eos # Baso # Seg Neutrophils % Seg Neuts % (Manual) Lymphocytes % (Manual) Eosinophils % (Manual) Seg Neutrophils # Lymphocytes # (Manual) Eosinophils # (Manual) PT INR D-Dimer POC ABG pH POC ABG pCO2 POC ABG pO2 ABG pO2 ABG HCO3 ABG Base Excess ABG Hemoglobin Oxyhemoglobin Sodium Potassium Chloride Carbon Dioxide BUN Creatinine Glucose POC Glucose 144 H 165 H 172 H Calcium Phosphorus Magnesium ALT Alkaline Phosphatase Total Creatine Kinase CK-MB (CK-2) Rel Index Troponin T Albumin LDL Cholesterol Direct PTH Intact Salicylates Acetaminophen Crossmatch 03/21/19 03/21/19 03/21/19 05:00 06:29 06:30 WBC RBC 2.72 L Hgb 7.4 L Hct 22.9 L MCV MCH 27 L MCHC RDW 19.4 H Plt Count Lymph % (Auto) [place] % (Auto) Eos % (Auto) Baso % (Auto) Lymph # [place] # Eos # Baso # Seg Neutrophils % Seg Neuts % (Manual) 81.0 H Lymphocytes % (Manual) 8.0 L Eosinophils % (Manual) 8.0 H Seg Neutrophils # Lymphocytes # (Manual) 0.7 L Eosinophils # (Manual) 0.7 H PT INR D-Dimer POC ABG pH POC ABG pCO2 POC ABG pO2 ABG pO2 ABG HCO3 ABG Base Excess ABG Hemoglobin Oxyhemoglobin Sodium Potassium Chloride Carbon Dioxide 33 H BUN 43 H Creatinine 1.7 H Glucose 145 H POC Glucose 156 H Calcium Phosphorus Magnesium ALT Alkaline Phosphatase 212 H Total Creatine Kinase CK-MB (CK-2) Rel Index Troponin T Albumin 2.2 L LDL Cholesterol Direct PTH Intact Salicylates Acetaminophen Crossmatch 03/21/19 03/21/19 03/22/19 12:02 18:07 00:21 WBC RBC Hgb Hct MCV MCH MCHC RDW Plt Count Lymph % (Auto) [place] % (Auto) Eos % (Auto) Baso % (Auto) Lymph # [place] # Eos # Baso # Seg Neutrophils % Seg Neuts % (Manual) Lymphocytes % (Manual) Eosinophils % (Manual) Seg Neutrophils # Lymphocytes # (Manual) Eosinophils # (Manual) PT INR D-Dimer POC ABG pH POC ABG pCO2 POC ABG pO2 ABG pO2 ABG HCO3 ABG Base Excess ABG Hemoglobin Oxyhemoglobin Sodium Potassium Chloride Carbon Dioxide BUN Creatinine Glucose POC Glucose 163 H 144 H 153 H Calcium Phosphorus Magnesium ALT Alkaline Phosphatase Total Creatine Kinase CK-MB (CK-2) Rel Index Troponin T Albumin LDL Cholesterol Direct PTH Intact Salicylates Acetaminophen Crossmatch 03/22/19 03/22/19 03/22/19 05:23 05:23 05:31 WBC RBC 2.58 L Hgb 7.1 L Hct 21.8 L MCV MCH 27 L MCHC RDW 19.2 H Plt Count Lymph % (Auto) [place] % (Auto) Eos % (Auto) Baso % (Auto) Lymph # [place] # Eos # Baso # Seg Neutrophils % Seg Neuts % (Manual) Lymphocytes % (Manual) Eosinophils % (Manual) Seg Neutrophils # Lymphocytes # (Manual) Eosinophils # (Manual) PT INR D-Dimer POC ABG pH POC ABG pCO2 POC ABG pO2 ABG pO2 ABG HCO3 ABG Base Excess ABG Hemoglobin Oxyhemoglobin Sodium 147 H Potassium Chloride Carbon Dioxide BUN 68 H Creatinine 2.5 H Glucose POC Glucose 116 H Calcium 10.3 H Phosphorus Magnesium ALT Alkaline Phosphatase Total Creatine Kinase CK-MB (CK-2) Rel Index Troponin T Albumin LDL Cholesterol Direct PTH Intact Salicylates Acetaminophen Crossmatch 03/22/19 03/22/19 03/22/19 08:48 12:37 17:35 WBC RBC Hgb Hct MCV MCH MCHC RDW Plt Count Lymph % (Auto) [place] % (Auto) Eos % (Auto) Baso % (Auto) Lymph # [place] # Eos # Baso # Seg Neutrophils % Seg Neuts % (Manual) Lymphocytes % (Manual) Eosinophils % (Manual) Seg Neutrophils # Lymphocytes # (Manual) Eosinophils # (Manual) PT INR D-Dimer POC ABG pH POC ABG pCO2 POC ABG pO2 ABG pO2 ABG HCO3 ABG Base Excess ABG Hemoglobin Oxyhemoglobin Sodium Potassium Chloride Carbon Dioxide BUN Creatinine Glucose POC Glucose 143 H 155 H Calcium Phosphorus Magnesium ALT Alkaline Phosphatase Total Creatine Kinase CK-MB (CK-2) Rel Index Troponin T Albumin LDL Cholesterol Direct PTH Intact Salicylates Acetaminophen Crossmatch See Detail 03/23/19 03/23/19 03/23/19 00:07 04:00 04:00 WBC 11.2 H RBC 2.32 L Hgb 6.4 L Hct 19.7 L* MCV MCH MCHC RDW 19.4 H Plt Count Lymph % (Auto) [place] % (Auto) Eos % (Auto) Baso % (Auto) Lymph # [place] # Eos # Baso # Seg Neutrophils % Seg Neuts % (Manual) Lymphocytes % (Manual) Eosinophils % (Manual) Seg Neutrophils # Lymphocytes # (Manual) Eosinophils # (Manual) PT INR D-Dimer POC ABG pH POC ABG pCO2 POC ABG pO2 ABG pO2 ABG HCO3 ABG Base Excess ABG Hemoglobin Oxyhemoglobin Sodium 147 H Potassium 5.2 H Chloride Carbon Dioxide BUN 86 H Creatinine 3.2 H Glucose 128 H POC Glucose 135 H Calcium 10.3 H Phosphorus Magnesium ALT Alkaline Phosphatase Total Creatine Kinase CK-MB (CK-2) Rel Index Troponin T Albumin LDL Cholesterol Direct PTH Intact Salicylates Acetaminophen Crossmatch 03/23/19 03/23/19 03/23/19 05:21 11:36 11:36 WBC RBC Hgb 7.9 L Hct 25.0 L MCV MCH MCHC RDW Plt Count Lymph % (Auto) [place] % (Auto) Eos % (Auto) Baso % (Auto) Lymph # [place] # Eos # Baso # Seg Neutrophils % Seg Neuts % (Manual) Lymphocytes % (Manual) Eosinophils % (Manual) Seg Neutrophils # Lymphocytes # (Manual) Eosinophils # (Manual) PT INR D-Dimer POC ABG pH POC ABG pCO2 POC ABG pO2 ABG pO2 ABG HCO3 ABG Base Excess ABG Hemoglobin Oxyhemoglobin Sodium Potassium Chloride Carbon Dioxide BUN Creatinine Glucose POC Glucose 132 H 147 H Calcium Phosphorus Magnesium ALT Alkaline Phosphatase Total Creatine Kinase CK-MB (CK-2) Rel Index Troponin T Albumin LDL Cholesterol Direct PTH Intact Salicylates Acetaminophen Crossmatch 03/23/19 03/24/19 03/24/19 17:31 01:22 04:20 WBC 12.2 H RBC 3.05 L Hgb 8.3 L Hct 25.9 L MCV MCH 27 L MCHC RDW 18.7 H Plt Count Lymph % (Auto) [place] % (Auto) Eos % (Auto) Baso % (Auto) Lymph # [place] # Eos # Baso # Seg Neutrophils % Seg Neuts % (Manual) Lymphocytes % (Manual) Eosinophils % (Manual) Seg Neutrophils # Lymphocytes # (Manual) Eosinophils # (Manual) PT INR D-Dimer POC ABG pH POC ABG pCO2 POC ABG pO2 ABG pO2 ABG HCO3 ABG Base Excess ABG Hemoglobin Oxyhemoglobin Sodium Potassium Chloride Carbon Dioxide BUN Creatinine Glucose POC Glucose 182 H 113 H Calcium Phosphorus Magnesium ALT Alkaline Phosphatase Total Creatine Kinase CK-MB (CK-2) Rel Index Troponin T Albumin LDL Cholesterol Direct PTH Intact Salicylates Acetaminophen Crossmatch 03/24/19 03/24/19 03/24/19 04:20 11:59 18:14 WBC RBC Hgb Hct MCV MCH MCHC RDW Plt Count Lymph % (Auto) [place] % (Auto) Eos % (Auto) Baso % (Auto) Lymph # [place] # Eos # Baso # Seg Neutrophils % Seg Neuts % (Manual) Lymphocytes % (Manual) Eosinophils % (Manual) Seg Neutrophils # Lymphocytes # (Manual) Eosinophils # (Manual) PT INR D-Dimer POC ABG pH POC ABG pCO2 POC ABG pO2 ABG pO2 ABG HCO3 ABG Base Excess ABG Hemoglobin Oxyhemoglobin Sodium Potassium Chloride 94.8 L Carbon Dioxide 32 H BUN 53 H Creatinine 2.3 H Glucose POC Glucose 163 H 134 H Calcium Phosphorus Magnesium ALT Alkaline Phosphatase Total Creatine Kinase CK-MB (CK-2) Rel Index Troponin T Albumin LDL Cholesterol Direct PTH Intact Salicylates Acetaminophen Crossmatch 03/24/19 03/25/19 03/25/19 23:15 05:52 12:02 WBC RBC Hgb Hct MCV MCH MCHC RDW Plt Count Lymph % (Auto) [place] % (Auto) Eos % (Auto) Baso % (Auto) Lymph # [place] # Eos # Baso # Seg Neutrophils % Seg Neuts % (Manual) Lymphocytes % (Manual) Eosinophils % (Manual) Seg Neutrophils # Lymphocytes # (Manual) Eosinophils # (Manual) PT INR D-Dimer POC ABG pH POC ABG pCO2 POC ABG pO2 ABG pO2 ABG HCO3 ABG Base Excess ABG Hemoglobin Oxyhemoglobin Sodium Potassium Chloride Carbon Dioxide BUN Creatinine Glucose POC Glucose 129 H 123 H 125 H Calcium Phosphorus Magnesium ALT Alkaline Phosphatase Total Creatine Kinase CK-MB (CK-2) Rel Index Troponin T Albumin LDL Cholesterol Direct PTH Intact Salicylates Acetaminophen Crossmatch 03/25/19 03/26/19 03/26/19 17:27 00:30 05:35 WBC RBC 3.01 L Hgb 8.1 L Hct 25.7 L MCV MCH 27 L MCHC RDW 19.2 H Plt Count Lymph % (Auto) 11.4 L [place] % (Auto) Eos % (Auto) 8.0 H Baso % (Auto) Lymph # 1.0 L [place] # Eos # 0.7 H Baso # Seg Neutrophils % 73.9 H Seg Neuts % (Manual) Lymphocytes % (Manual) Eosinophils % (Manual) Seg Neutrophils # Lymphocytes # (Manual) Eosinophils # (Manual) PT INR D-Dimer POC ABG pH POC ABG pCO2 POC ABG pO2 ABG pO2 ABG HCO3 ABG Base Excess ABG Hemoglobin Oxyhemoglobin Sodium Potassium Chloride Carbon Dioxide BUN Creatinine Glucose POC Glucose 130 H 129 H Calcium Phosphorus Magnesium ALT Alkaline Phosphatase Total Creatine Kinase CK-MB (CK-2) Rel Index Troponin T Albumin LDL Cholesterol Direct PTH Intact Salicylates Acetaminophen Crossmatch 03/26/19 03/26/19 03/26/19 05:35 05:45 12:16 WBC RBC Hgb Hct MCV MCH MCHC RDW Plt Count Lymph % (Auto) [place] % (Auto) Eos % (Auto) Baso % (Auto) Lymph # [place] # Eos # Baso # Seg Neutrophils % Seg Neuts % (Manual) Lymphocytes % (Manual) Eosinophils % (Manual) Seg Neutrophils # Lymphocytes # (Manual) Eosinophils # (Manual) PT INR D-Dimer POC ABG pH POC ABG pCO2 POC ABG pO2 ABG pO2 ABG HCO3 ABG Base Excess ABG Hemoglobin Oxyhemoglobin Sodium Potassium Chloride 94.9 L Carbon Dioxide 31 H BUN 44 H Creatinine 2.0 H Glucose POC Glucose 118 H 107 H Calcium Phosphorus Magnesium ALT Alkaline Phosphatase Total Creatine Kinase CK-MB (CK-2) Rel Index Troponin T Albumin LDL Cholesterol Direct PTH Intact Salicylates Acetaminophen Crossmatch 03/26/19 03/27/19 03/27/19 17:56 00:36 05:37 WBC RBC Hgb Hct MCV MCH MCHC RDW Plt Count Lymph % (Auto) [place] % (Auto) Eos % (Auto) Baso % (Auto) Lymph # [place] # Eos # Baso # Seg Neutrophils % Seg Neuts % (Manual) Lymphocytes % (Manual) Eosinophils % (Manual) Seg Neutrophils # Lymphocytes # (Manual) Eosinophils # (Manual) PT INR D-Dimer POC ABG pH POC ABG pCO2 POC ABG pO2 ABG pO2 ABG HCO3 ABG Base Excess ABG Hemoglobin Oxyhemoglobin Sodium Potassium Chloride Carbon Dioxide BUN Creatinine Glucose POC Glucose 107 H 110 H 122 H Calcium Phosphorus Magnesium ALT Alkaline Phosphatase Total Creatine Kinase CK-MB (CK-2) Rel Index Troponin T Albumin LDL Cholesterol Direct PTH Intact Salicylates Acetaminophen Crossmatch 03/27/19 03/27/19 03/28/19 11:22 18:00 05:17 WBC RBC Hgb Hct MCV MCH MCHC RDW Plt Count Lymph % (Auto) [place] % (Auto) Eos % (Auto) Baso % (Auto) Lymph # [place] # Eos # Baso # Seg Neutrophils % Seg Neuts % (Manual) Lymphocytes % (Manual) Eosinophils % (Manual) Seg Neutrophils # Lymphocytes # (Manual) Eosinophils # (Manual) PT INR D-Dimer POC ABG pH POC ABG pCO2 POC ABG pO2 ABG pO2 ABG HCO3 ABG Base Excess ABG Hemoglobin Oxyhemoglobin Sodium Potassium Chloride Carbon Dioxide BUN Creatinine Glucose POC Glucose 120 H 111 H 107 H Calcium Phosphorus Magnesium ALT Alkaline Phosphatase Total Creatine Kinase CK-MB (CK-2) Rel Index Troponin T Albumin LDL Cholesterol Direct PTH Intact Salicylates Acetaminophen Crossmatch 03/28/19 03/28/19 03/29/19 12:27 18:08 05:47 WBC RBC Hgb Hct MCV MCH MCHC RDW Plt Count Lymph % (Auto) [place] % (Auto) Eos % (Auto) Baso % (Auto) Lymph # [place] # Eos # Baso # Seg Neutrophils % Seg Neuts % (Manual) Lymphocytes % (Manual) Eosinophils % (Manual) Seg Neutrophils # Lymphocytes # (Manual) Eosinophils # (Manual) PT INR D-Dimer POC ABG pH POC ABG pCO2 POC ABG pO2 ABG pO2 ABG HCO3 ABG Base Excess ABG Hemoglobin Oxyhemoglobin Sodium Potassium Chloride Carbon Dioxide BUN Creatinine Glucose POC Glucose 114 H 121 H 112 H Calcium Phosphorus Magnesium ALT Alkaline Phosphatase Total Creatine Kinase CK-MB (CK-2) Rel Index Troponin T Albumin LDL Cholesterol Direct PTH Intact Salicylates Acetaminophen Crossmatch 03/29/19 03/29/19 03/30/19 12:14 18:08 00:31 WBC RBC Hgb Hct MCV MCH MCHC RDW Plt Count Lymph % (Auto) [place] % (Auto) Eos % (Auto) Baso % (Auto) Lymph # [place] # Eos # Baso # Seg Neutrophils % Seg Neuts % (Manual) Lymphocytes % (Manual) Eosinophils % (Manual) Seg Neutrophils # Lymphocytes # (Manual) Eosinophils # (Manual) PT INR D-Dimer POC ABG pH POC ABG pCO2 POC ABG pO2 ABG pO2 ABG HCO3 ABG Base Excess ABG Hemoglobin Oxyhemoglobin Sodium Potassium Chloride Carbon Dioxide BUN Creatinine Glucose POC Glucose 117 H 140 H 114 H Calcium Phosphorus Magnesium ALT Alkaline Phosphatase Total Creatine Kinase CK-MB (CK-2) Rel Index Troponin T Albumin LDL Cholesterol Direct PTH Intact Salicylates Acetaminophen Crossmatch 03/30/19 03/30/19 03/30/19 10:13 10:13 23:53 WBC RBC 2.81 L Hgb 7.7 L Hct 24.3 L MCV MCH 27 L MCHC RDW 19.0 H Plt Count Lymph % (Auto) 12.2 L [place] % (Auto) Eos % (Auto) 7.9 H Baso % (Auto) Lymph # 1.0 L Catron # Eos # 0.6 H Baso # Seg Neutrophils % 72.3 H Seg Neuts % (Manual) Lymphocytes % (Manual) Eosinophils % (Manual) Seg Neutrophils # Lymphocytes # (Manual) Eosinophils # (Manual) PT INR D-Dimer POC ABG pH POC ABG pCO2 POC ABG pO2 ABG pO2 ABG HCO3 ABG Base Excess ABG Hemoglobin Oxyhemoglobin Sodium Potassium 5.1 H Chloride 96.5 L Carbon Dioxide BUN 73 H Creatinine 3.9 H D Glucose POC Glucose 114 H Calcium 10.3 H Phosphorus 6.30 H Magnesium 2.70 H ALT Alkaline Phosphatase 185 H Total Creatine Kinase CK-MB (CK-2) Rel Index Troponin T Albumin 2.6 L LDL Cholesterol Direct PTH Intact Salicylates Acetaminophen Crossmatch 03/31/19 03/31/19 03/31/19 05:45 10:26 10:26 WBC RBC 3.01 L Hgb 8.2 L Hct 26.4 L MCV MCH 27 L MCHC 31 L RDW 20.3 H Plt Count Lymph % (Auto) 13.3 L Catron % (Auto) Eos % (Auto) 7.2 H Baso % (Auto) Lymph # 1.1 L Catron # Eos # 0.6 H Baso # Seg Neutrophils % 72.1 H Seg Neuts % (Manual) Lymphocytes % (Manual) Eosinophils % (Manual) Seg Neutrophils # Lymphocytes # (Manual) Eosinophils # (Manual) PT INR D-Dimer POC ABG pH POC ABG pCO2 POC ABG pO2 ABG pO2 ABG HCO3 ABG Base Excess ABG Hemoglobin Oxyhemoglobin Sodium Potassium Chloride 96.9 L Carbon Dioxide 33 H BUN 37 H Creatinine 2.4 H Glucose POC Glucose 108 H Calcium 10.3 H Phosphorus Magnesium ALT Alkaline Phosphatase Total Creatine Kinase CK-MB (CK-2) Rel Index Troponin T Albumin LDL Cholesterol Direct PTH Intact Salicylates Acetaminophen Crossmatch 03/31/19 04/01/19 04/01/19 12:38 05:48 12:06 WBC RBC Hgb Hct MCV MCH MCHC RDW Plt Count Lymph % (Auto) [place] % (Auto) Eos % (Auto) Baso % (Auto) Lymph # [place] # Eos # Baso # Seg Neutrophils % Seg Neuts % (Manual) Lymphocytes % (Manual) Eosinophils % (Manual) Seg Neutrophils # Lymphocytes # (Manual) Eosinophils # (Manual) PT INR D-Dimer POC ABG pH POC ABG pCO2 POC ABG pO2 ABG pO2 ABG HCO3 ABG Base Excess ABG Hemoglobin Oxyhemoglobin Sodium Potassium Chloride Carbon Dioxide BUN Creatinine Glucose POC Glucose 108 H 114 H 111 H Calcium Phosphorus Magnesium ALT Alkaline Phosphatase Total Creatine Kinase CK-MB (CK-2) Rel Index Troponin T Albumin LDL Cholesterol Direct PTH Intact Salicylates Acetaminophen Crossmatch 04/01/19 04/02/19 04/04/19 18:24 00:36 23:55 WBC RBC Hgb Hct MCV MCH MCHC RDW Plt Count Lymph % (Auto) [place] % (Auto) Eos % (Auto) Baso % (Auto) Lymph # [place] # Eos # Baso # Seg Neutrophils % Seg Neuts % (Manual) Lymphocytes % (Manual) Eosinophils % (Manual) Seg Neutrophils # Lymphocytes # (Manual) Eosinophils # (Manual) PT INR D-Dimer POC ABG pH POC ABG pCO2 POC ABG pO2 ABG pO2 ABG HCO3 ABG Base Excess ABG Hemoglobin Oxyhemoglobin Sodium Potassium Chloride Carbon Dioxide BUN Creatinine Glucose POC Glucose 113 H 117 H 109 H Calcium Phosphorus Magnesium ALT Alkaline Phosphatase Total Creatine Kinase CK-MB (CK-2) Rel Index Troponin T Albumin LDL Cholesterol Direct PTH Intact Salicylates Acetaminophen Crossmatch 04/06/19 04/06/19 04/06/19 00:11 06:02 23:30 WBC RBC Hgb Hct MCV MCH MCHC RDW Plt Count Lymph % (Auto) [place] % (Auto) Eos % (Auto) Baso % (Auto) Lymph # [place] # Eos # Baso # Seg Neutrophils % Seg Neuts % (Manual) Lymphocytes % (Manual) Eosinophils % (Manual) Seg Neutrophils # Lymphocytes # (Manual) Eosinophils # (Manual) PT INR D-Dimer POC ABG pH POC ABG pCO2 POC ABG pO2 ABG pO2 ABG HCO3 ABG Base Excess ABG Hemoglobin Oxyhemoglobin Sodium Potassium Chloride Carbon Dioxide BUN Creatinine Glucose POC Glucose 116 H 112 H 112 H Calcium Phosphorus Magnesium ALT Alkaline Phosphatase Total Creatine Kinase CK-MB (CK-2) Rel Index Troponin T Albumin LDL Cholesterol Direct PTH Intact Salicylates Acetaminophen Crossmatch 04/08/19 04/08/19 04/08/19 02:23 06:19 13:01 WBC RBC Hgb Hct MCV MCH MCHC RDW Plt Count Lymph % (Auto) [place] % (Auto) Eos % (Auto) Baso % (Auto) Lymph # [place] # Eos # Baso # Seg Neutrophils % Seg Neuts % (Manual) Lymphocytes % (Manual) Eosinophils % (Manual) Seg Neutrophils # Lymphocytes # (Manual) Eosinophils # (Manual) PT INR D-Dimer POC ABG pH POC ABG pCO2 POC ABG pO2 ABG pO2 ABG HCO3 ABG Base Excess ABG Hemoglobin Oxyhemoglobin Sodium Potassium Chloride Carbon Dioxide BUN Creatinine Glucose POC Glucose 144 H 126 H 118 H Calcium Phosphorus Magnesium ALT Alkaline Phosphatase Total Creatine Kinase CK-MB (CK-2) Rel Index Troponin T Albumin LDL Cholesterol Direct PTH Intact Salicylates Acetaminophen Crossmatch 04/08/19 04/09/19 04/10/19 23:28 05:52 06:34 WBC RBC Hgb Hct MCV MCH MCHC RDW Plt Count Lymph % (Auto) [place] % (Auto) Eos % (Auto) Baso % (Auto) Lymph # [place] # Eos # Baso # Seg Neutrophils % Seg Neuts % (Manual) Lymphocytes % (Manual) Eosinophils % (Manual) Seg Neutrophils # Lymphocytes # (Manual) Eosinophils # (Manual) PT INR D-Dimer POC ABG pH POC ABG pCO2 POC ABG pO2 ABG pO2 ABG HCO3 ABG Base Excess ABG Hemoglobin Oxyhemoglobin Sodium Potassium Chloride Carbon Dioxide BUN Creatinine Glucose POC Glucose 119 H 116 H 114 H Calcium Phosphorus Magnesium ALT Alkaline Phosphatase Total Creatine Kinase CK-MB (CK-2) Rel Index Troponin T Albumin LDL Cholesterol Direct PTH Intact Salicylates Acetaminophen Crossmatch 04/10/19 04/10/19 04/11/19 12:34 18:59 00:36 WBC RBC Hgb Hct MCV MCH MCHC RDW Plt Count Lymph % (Auto) [place] % (Auto) Eos % (Auto) Baso % (Auto) Lymph # [place] # Eos # Baso # Seg Neutrophils % Seg Neuts % (Manual) Lymphocytes % (Manual) Eosinophils % (Manual) Seg Neutrophils # Lymphocytes # (Manual) Eosinophils # (Manual) PT INR D-Dimer POC ABG pH POC ABG pCO2 POC ABG pO2 ABG pO2 ABG HCO3 ABG Base Excess ABG Hemoglobin Oxyhemoglobin Sodium Potassium Chloride Carbon Dioxide BUN Creatinine Glucose POC Glucose 112 H 109 H 124 H Calcium Phosphorus Magnesium ALT Alkaline Phosphatase Total Creatine Kinase CK-MB (CK-2) Rel Index Troponin T Albumin LDL Cholesterol Direct PTH Intact Salicylates Acetaminophen Crossmatch 04/11/19 04/11/19 04/12/19 08:01 17:25 02:18 WBC RBC Hgb Hct MCV MCH MCHC RDW Plt Count Lymph % (Auto) [place] % (Auto) Eos % (Auto) Baso % (Auto) Lymph # [place] # Eos # Baso # Seg Neutrophils % Seg Neuts % (Manual) Lymphocytes % (Manual) Eosinophils % (Manual) Seg Neutrophils # Lymphocytes # (Manual) Eosinophils # (Manual) PT INR D-Dimer POC ABG pH POC ABG pCO2 POC ABG pO2 ABG pO2 ABG HCO3 ABG Base Excess ABG Hemoglobin Oxyhemoglobin Sodium Potassium Chloride Carbon Dioxide BUN Creatinine Glucose POC Glucose 118 H 106 H 125 H Calcium Phosphorus Magnesium ALT Alkaline Phosphatase Total Creatine Kinase CK-MB (CK-2) Rel Index Troponin T Albumin LDL Cholesterol Direct PTH Intact Salicylates Acetaminophen Crossmatch 04/12/19 04/12/19 04/12/19 06:24 12:22 17:13 WBC RBC Hgb Hct MCV MCH MCHC RDW Plt Count Lymph % (Auto) [place] % (Auto) Eos % (Auto) Baso % (Auto) Lymph # [place] # Eos # Baso # Seg Neutrophils % Seg Neuts % (Manual) Lymphocytes % (Manual) Eosinophils % (Manual) Seg Neutrophils # Lymphocytes # (Manual) Eosinophils # (Manual) PT INR D-Dimer POC ABG pH POC ABG pCO2 POC ABG pO2 ABG pO2 ABG HCO3 ABG Base Excess ABG Hemoglobin Oxyhemoglobin Sodium Potassium Chloride Carbon Dioxide BUN Creatinine Glucose POC Glucose 128 H 114 H 110 H Calcium Phosphorus Magnesium ALT Alkaline Phosphatase Total Creatine Kinase CK-MB (CK-2) Rel Index Troponin T Albumin LDL Cholesterol Direct PTH Intact Salicylates Acetaminophen Crossmatch 04/13/19 04/13/19 04/13/19 06:59 07:31 07:31 WBC RBC 3.34 L Hgb 8.9 L Hct 28.6 L MCV MCH 27 L MCHC 31 L RDW 19.6 H Plt Count Lymph % (Auto) [place] % (Auto) Eos % (Auto) Baso % (Auto) Lymph # [place] # Eos # Baso # Seg Neutrophils % Seg Neuts % (Manual) Lymphocytes % (Manual) Eosinophils % (Manual) Seg Neutrophils # Lymphocytes # (Manual) Eosinophils # (Manual) PT INR D-Dimer POC ABG pH POC ABG pCO2 POC ABG pO2 ABG pO2 ABG HCO3 ABG Base Excess ABG Hemoglobin Oxyhemoglobin Sodium Potassium Chloride 96.4 L Carbon Dioxide 33 H BUN 66 H Creatinine 4.5 H Glucose 103 H POC Glucose 107 H Calcium Phosphorus Magnesium ALT Alkaline Phosphatase Total Creatine Kinase CK-MB (CK-2) Rel Index Troponin T Albumin LDL Cholesterol Direct PTH Intact Salicylates Acetaminophen Crossmatch 04/13/19 04/14/19 04/14/19 23:43 05:50 13:07 WBC RBC Hgb Hct MCV MCH MCHC RDW Plt Count Lymph % (Auto) [place] % (Auto) Eos % (Auto) Baso % (Auto) Lymph # [place] # Eos # Baso # Seg Neutrophils % Seg Neuts % (Manual) Lymphocytes % (Manual) Eosinophils % (Manual) Seg Neutrophils # Lymphocytes # (Manual) Eosinophils # (Manual) PT INR D-Dimer POC ABG pH POC ABG pCO2 POC ABG pO2 ABG pO2 ABG HCO3 ABG Base Excess ABG Hemoglobin Oxyhemoglobin Sodium Potassium Chloride Carbon Dioxide BUN Creatinine Glucose POC Glucose 119 H 112 H 112 H Calcium Phosphorus Magnesium ALT Alkaline Phosphatase Total Creatine Kinase CK-MB (CK-2) Rel Index Troponin T Albumin LDL Cholesterol Direct PTH Intact Salicylates Acetaminophen Crossmatch 04/14/19 04/15/19 04/15/19 18:35 01:18 05:17 WBC RBC Hgb Hct MCV MCH MCHC RDW Plt Count Lymph % (Auto) [place] % (Auto) Eos % (Auto) Baso % (Auto) Lymph # [place] # Eos # Baso # Seg Neutrophils % Seg Neuts % (Manual) Lymphocytes % (Manual) Eosinophils % (Manual) Seg Neutrophils # Lymphocytes # (Manual) Eosinophils # (Manual) PT INR D-Dimer POC ABG pH POC ABG pCO2 POC ABG pO2 ABG pO2 ABG HCO3 ABG Base Excess ABG Hemoglobin Oxyhemoglobin Sodium Potassium Chloride Carbon Dioxide BUN Creatinine Glucose POC Glucose 114 H 114 H 114 H Calcium Phosphorus Magnesium ALT Alkaline Phosphatase Total Creatine Kinase CK-MB (CK-2) Rel Index Troponin T Albumin LDL Cholesterol Direct PTH Intact Salicylates Acetaminophen Crossmatch 04/15/19 04/15/19 04/16/19 11:50 23:39 05:41 WBC RBC Hgb Hct MCV MCH MCHC RDW Plt Count Lymph % (Auto) [place] % (Auto) Eos % (Auto) Baso % (Auto) Lymph # [place] # Eos # Baso # Seg Neutrophils % Seg Neuts % (Manual) Lymphocytes % (Manual) Eosinophils % (Manual) Seg Neutrophils # Lymphocytes # (Manual) Eosinophils # (Manual) PT INR D-Dimer POC ABG pH POC ABG pCO2 POC ABG pO2 ABG pO2 ABG HCO3 ABG Base Excess ABG Hemoglobin Oxyhemoglobin Sodium Potassium Chloride Carbon Dioxide BUN Creatinine Glucose POC Glucose 109 H 115 H 125 H Calcium Phosphorus Magnesium ALT Alkaline Phosphatase Total Creatine Kinase CK-MB (CK-2) Rel Index Troponin T Albumin LDL Cholesterol Direct PTH Intact Salicylates Acetaminophen Crossmatch 04/16/19 04/17/19 04/17/19 12:53 01:00 12:38 WBC RBC Hgb Hct MCV MCH MCHC RDW Plt Count Lymph % (Auto) [place] % (Auto) Eos % (Auto) Baso % (Auto) Lymph # [place] # Eos # Baso # Seg Neutrophils % Seg Neuts % (Manual) Lymphocytes % (Manual) Eosinophils % (Manual) Seg Neutrophils # Lymphocytes # (Manual) Eosinophils # (Manual) PT INR D-Dimer POC ABG pH POC ABG pCO2 POC ABG pO2 ABG pO2 ABG HCO3 ABG Base Excess ABG Hemoglobin Oxyhemoglobin Sodium Potassium Chloride Carbon Dioxide BUN Creatinine Glucose POC Glucose 121 H 127 H 159 H Calcium Phosphorus Magnesium ALT Alkaline Phosphatase Total Creatine Kinase CK-MB (CK-2) Rel Index Troponin T Albumin LDL Cholesterol Direct PTH Intact Salicylates Acetaminophen Crossmatch 04/17/19 04/17/19 04/18/19 18:27 23:36 07:19 WBC RBC 3.49 L Hgb 9.0 L Hct 29.9 L MCV MCH 26 L MCHC 30 L RDW 20.0 H Plt Count Lymph % (Auto) [place] % (Auto) Eos % (Auto) Baso % (Auto) Lymph # [place] # Eos # Baso # Seg Neutrophils % Seg Neuts % (Manual) Lymphocytes % (Manual) Eosinophils % (Manual) Seg Neutrophils # Lymphocytes # (Manual) Eosinophils # (Manual) PT INR D-Dimer POC ABG pH POC ABG pCO2 POC ABG pO2 ABG pO2 ABG HCO3 ABG Base Excess ABG Hemoglobin Oxyhemoglobin Sodium Potassium Chloride Carbon Dioxide BUN Creatinine Glucose POC Glucose 109 H 134 H Calcium Phosphorus Magnesium ALT Alkaline Phosphatase Total Creatine Kinase CK-MB (CK-2) Rel Index Troponin T Albumin LDL Cholesterol Direct PTH Intact Salicylates Acetaminophen Crossmatch 04/18/19 04/18/19 04/18/19 07:19 12:16 17:09 WBC RBC Hgb Hct MCV MCH MCHC RDW Plt Count Lymph % (Auto) [place] % (Auto) Eos % (Auto) Baso % (Auto) Lymph # [place] # Eos # Baso # Seg Neutrophils % Seg Neuts % (Manual) Lymphocytes % (Manual) Eosinophils % (Manual) Seg Neutrophils # Lymphocytes # (Manual) Eosinophils # (Manual) PT INR D-Dimer POC ABG pH POC ABG pCO2 POC ABG pO2 ABG pO2 ABG HCO3 ABG Base Excess ABG Hemoglobin Oxyhemoglobin Sodium Potassium Chloride Carbon Dioxide BUN 41 H Creatinine 2.9 H Glucose 122 H POC Glucose 125 H 131 H Calcium Phosphorus Magnesium ALT Alkaline Phosphatase Total Creatine Kinase CK-MB (CK-2) Rel Index Troponin T Albumin LDL Cholesterol Direct PTH Intact Salicylates Acetaminophen Crossmatch 04/18/19 04/19/19 04/19/19 23:57 05:55 11:35 WBC RBC Hgb Hct MCV MCH MCHC RDW Plt Count Lymph % (Auto) [place] % (Auto) Eos % (Auto) Baso % (Auto) Lymph # [place] # Eos # Baso # Seg Neutrophils % Seg Neuts % (Manual) Lymphocytes % (Manual) Eosinophils % (Manual) Seg Neutrophils # Lymphocytes # (Manual) Eosinophils # (Manual) PT INR D-Dimer POC ABG pH POC ABG pCO2 POC ABG pO2 ABG pO2 ABG HCO3 ABG Base Excess ABG Hemoglobin Oxyhemoglobin Sodium Potassium Chloride Carbon Dioxide BUN Creatinine Glucose POC Glucose 159 H 144 H 177 H Calcium Phosphorus Magnesium ALT Alkaline Phosphatase Total Creatine Kinase CK-MB (CK-2) Rel Index Troponin T Albumin LDL Cholesterol Direct PTH Intact Salicylates Acetaminophen Crossmatch 04/19/19 04/20/19 04/20/19 16:36 02:05 06:28 WBC RBC Hgb Hct MCV MCH MCHC RDW Plt Count Lymph % (Auto) [place] % (Auto) Eos % (Auto) Baso % (Auto) Lymph # [place] # Eos # Baso # Seg Neutrophils % Seg Neuts % (Manual) Lymphocytes % (Manual) Eosinophils % (Manual) Seg Neutrophils # Lymphocytes # (Manual) Eosinophils # (Manual) PT INR D-Dimer POC ABG pH POC ABG pCO2 POC ABG pO2 ABG pO2 ABG HCO3 ABG Base Excess ABG Hemoglobin Oxyhemoglobin Sodium Potassium Chloride Carbon Dioxide BUN Creatinine Glucose POC Glucose 134 H 142 H 132 H Calcium Phosphorus Magnesium ALT Alkaline Phosphatase Total Creatine Kinase CK-MB (CK-2) Rel Index Troponin T Albumin LDL Cholesterol Direct PTH Intact Salicylates Acetaminophen Crossmatch 04/20/19 04/20/19 04/21/19 12:37 23:34 05:59 WBC RBC Hgb Hct MCV MCH MCHC RDW Plt Count Lymph % (Auto) [place] % (Auto) Eos % (Auto) Baso % (Auto) Lymph # [place] # Eos # Baso # Seg Neutrophils % Seg Neuts % (Manual) Lymphocytes % (Manual) Eosinophils % (Manual) Seg Neutrophils # Lymphocytes # (Manual) Eosinophils # (Manual) PT INR D-Dimer POC ABG pH POC ABG pCO2 POC ABG pO2 ABG pO2 ABG HCO3 ABG Base Excess ABG Hemoglobin Oxyhemoglobin Sodium Potassium Chloride Carbon Dioxide BUN Creatinine Glucose POC Glucose 163 H 166 H 140 H Calcium Phosphorus Magnesium ALT Alkaline Phosphatase Total Creatine Kinase CK-MB (CK-2) Rel Index Troponin T Albumin LDL Cholesterol Direct PTH Intact Salicylates Acetaminophen Crossmatch 04/21/19 04/21/19 04/21/19 12:07 17:22 23:43 WBC RBC Hgb Hct MCV MCH MCHC RDW Plt Count Lymph % (Auto) [place] % (Auto) Eos % (Auto) Baso % (Auto) Lymph # [place] # Eos # Baso # Seg Neutrophils % Seg Neuts % (Manual) Lymphocytes % (Manual) Eosinophils % (Manual) Seg Neutrophils # Lymphocytes # (Manual) Eosinophils # (Manual) PT INR D-Dimer POC ABG pH POC ABG pCO2 POC ABG pO2 ABG pO2 ABG HCO3 ABG Base Excess ABG Hemoglobin Oxyhemoglobin Sodium Potassium Chloride Carbon Dioxide BUN Creatinine Glucose POC Glucose 135 H 141 H 138 H Calcium Phosphorus Magnesium ALT Alkaline Phosphatase Total Creatine Kinase CK-MB (CK-2) Rel Index Troponin T Albumin LDL Cholesterol Direct PTH Intact Salicylates Acetaminophen Crossmatch 04/22/19 04/22/19 04/22/19 05:12 18:24 23:49 WBC RBC Hgb Hct MCV MCH MCHC RDW Plt Count Lymph % (Auto) [place] % (Auto) Eos % (Auto) Baso % (Auto) Lymph # [place] # Eos # Baso # Seg Neutrophils % Seg Neuts % (Manual) Lymphocytes % (Manual) Eosinophils % (Manual) Seg Neutrophils # Lymphocytes # (Manual) Eosinophils # (Manual) PT INR D-Dimer POC ABG pH POC ABG pCO2 POC ABG pO2 ABG pO2 ABG HCO3 ABG Base Excess ABG Hemoglobin Oxyhemoglobin Sodium Potassium Chloride Carbon Dioxide BUN Creatinine Glucose POC Glucose 141 H 137 H 142 H Calcium Phosphorus Magnesium ALT Alkaline Phosphatase Total Creatine Kinase CK-MB (CK-2) Rel Index Troponin T Albumin LDL Cholesterol Direct PTH Intact Salicylates Acetaminophen Crossmatch 04/23/19 04/23/19 04/23/19 05:53 08:13 11:58 WBC RBC Hgb Hct MCV MCH MCHC RDW Plt Count Lymph % (Auto) [place] % (Auto) Eos % (Auto) Baso % (Auto) Lymph # [place] # Eos # Baso # Seg Neutrophils % Seg Neuts % (Manual) Lymphocytes % (Manual) Eosinophils % (Manual) Seg Neutrophils # Lymphocytes # (Manual) Eosinophils # (Manual) PT INR D-Dimer POC ABG pH POC ABG pCO2 POC ABG pO2 ABG pO2 ABG HCO3 ABG Base Excess ABG Hemoglobin Oxyhemoglobin Sodium Potassium Chloride Carbon Dioxide BUN Creatinine Glucose POC Glucose 132 H 154 H 165 H Calcium Phosphorus Magnesium ALT Alkaline Phosphatase Total Creatine Kinase CK-MB (CK-2) Rel Index Troponin T Albumin LDL Cholesterol Direct PTH Intact Salicylates Acetaminophen Crossmatch 04/23/19 04/24/19 04/24/19 16:28 00:28 07:00 WBC RBC Hgb Hct MCV MCH MCHC RDW Plt Count Lymph % (Auto) [place] % (Auto) Eos % (Auto) Baso % (Auto) Lymph # [place] # Eos # Baso # Seg Neutrophils % Seg Neuts % (Manual) Lymphocytes % (Manual) Eosinophils % (Manual) Seg Neutrophils # Lymphocytes # (Manual) Eosinophils # (Manual) PT INR D-Dimer POC ABG pH POC ABG pCO2 POC ABG pO2 ABG pO2 ABG HCO3 ABG Base Excess ABG Hemoglobin Oxyhemoglobin Sodium Potassium Chloride Carbon Dioxide BUN Creatinine Glucose POC Glucose 136 H 140 H 141 H Calcium Phosphorus Magnesium ALT Alkaline Phosphatase Total Creatine Kinase CK-MB (CK-2) Rel Index Troponin T Albumin LDL Cholesterol Direct PTH Intact Salicylates Acetaminophen Crossmatch 04/24/19 04/24/19 04/25/19 12:38 18:57 00:38 WBC RBC Hgb Hct MCV MCH MCHC RDW Plt Count Lymph % (Auto) [place] % (Auto) Eos % (Auto) Baso % (Auto) Lymph # [place] # Eos # Baso # Seg Neutrophils % Seg Neuts % (Manual) Lymphocytes % (Manual) Eosinophils % (Manual) Seg Neutrophils # Lymphocytes # (Manual) Eosinophils # (Manual) PT INR D-Dimer POC ABG pH POC ABG pCO2 POC ABG pO2 ABG pO2 ABG HCO3 ABG Base Excess ABG Hemoglobin Oxyhemoglobin Sodium Potassium Chloride Carbon Dioxide BUN Creatinine Glucose POC Glucose 152 H 166 H 128 H Calcium Phosphorus Magnesium ALT Alkaline Phosphatase Total Creatine Kinase CK-MB (CK-2) Rel Index Troponin T Albumin LDL Cholesterol Direct PTH Intact Salicylates Acetaminophen Crossmatch 04/25/19 04/25/19 04/25/19 05:44 13:43 18:34 WBC RBC Hgb Hct MCV MCH MCHC RDW Plt Count Lymph % (Auto) [place] % (Auto) Eos % (Auto) Baso % (Auto) Lymph # [place] # Eos # Baso # Seg Neutrophils % Seg Neuts % (Manual) Lymphocytes % (Manual) Eosinophils % (Manual) Seg Neutrophils # Lymphocytes # (Manual) Eosinophils # (Manual) PT INR D-Dimer POC ABG pH POC ABG pCO2 POC ABG pO2 ABG pO2 ABG HCO3 ABG Base Excess ABG Hemoglobin Oxyhemoglobin Sodium Potassium Chloride Carbon Dioxide BUN Creatinine Glucose POC Glucose 153 H 186 H 124 H Calcium Phosphorus Magnesium ALT Alkaline Phosphatase Total Creatine Kinase CK-MB (CK-2) Rel Index Troponin T Albumin LDL Cholesterol Direct PTH Intact Salicylates Acetaminophen Crossmatch 04/26/19 04/26/19 04/26/19 00:59 05:52 10:12 WBC 11.5 H RBC 2.84 L Hgb 7.4 L Hct 23.3 L MCV 82 L MCH 26 L MCHC RDW 20.3 H Plt Count Lymph % (Auto) 7.5 L [place] % (Auto) 7.5 H Eos % (Auto) 5.3 H Baso % (Auto) Lymph # 0.9 L [place] # 0.9 H Eos # 0.6 H Baso # Seg Neutrophils % 79.2 H Seg Neuts % (Manual) Lymphocytes % (Manual) Eosinophils % (Manual) Seg Neutrophils # 9.1 H Lymphocytes # (Manual) Eosinophils # (Manual) PT INR D-Dimer POC ABG pH POC ABG pCO2 POC ABG pO2 ABG pO2 ABG HCO3 ABG Base Excess ABG Hemoglobin Oxyhemoglobin Sodium Potassium Chloride Carbon Dioxide BUN Creatinine Glucose POC Glucose 163 H 146 H Calcium Phosphorus Magnesium ALT Alkaline Phosphatase Total Creatine Kinase CK-MB (CK-2) Rel Index Troponin T Albumin LDL Cholesterol Direct PTH Intact Salicylates Acetaminophen Crossmatch 04/26/19 04/26/19 04/26/19 10:12 12:15 19:00 WBC RBC Hgb Hct MCV MCH MCHC RDW Plt Count Lymph % (Auto) [place] % (Auto) Eos % (Auto) Baso % (Auto) Lymph # [place] # Eos # Baso # Seg Neutrophils % Seg Neuts % (Manual) Lymphocytes % (Manual) Eosinophils % (Manual) Seg Neutrophils # Lymphocytes # (Manual) Eosinophils # (Manual) PT INR D-Dimer POC ABG pH POC ABG pCO2 POC ABG pO2 ABG pO2 ABG HCO3 ABG Base Excess ABG Hemoglobin Oxyhemoglobin Sodium 130 L Potassium Chloride 87.4 L Carbon Dioxide BUN 93 H Creatinine 4.2 H Glucose 140 H POC Glucose 155 H 179 H Calcium Phosphorus Magnesium ALT Alkaline Phosphatase Total Creatine Kinase CK-MB (CK-2) Rel Index Troponin T Albumin LDL Cholesterol Direct PTH Intact Salicylates Acetaminophen Crossmatch 04/27/19 04/27/19 04/27/19 00:23 06:34 17:13 WBC RBC Hgb Hct MCV MCH MCHC RDW Plt Count Lymph % (Auto) [place] % (Auto) Eos % (Auto) Baso % (Auto) Lymph # [place] # Eos # Baso # Seg Neutrophils % Seg Neuts % (Manual) Lymphocytes % (Manual) Eosinophils % (Manual) Seg Neutrophils # Lymphocytes # (Manual) Eosinophils # (Manual) PT INR D-Dimer POC ABG pH POC ABG pCO2 POC ABG pO2 ABG pO2 ABG HCO3 ABG Base Excess ABG Hemoglobin Oxyhemoglobin Sodium Potassium Chloride Carbon Dioxide BUN Creatinine Glucose POC Glucose 158 H 140 H 152 H Calcium Phosphorus Magnesium ALT Alkaline Phosphatase Total Creatine Kinase CK-MB (CK-2) Rel Index Troponin T Albumin LDL Cholesterol Direct PTH Intact Salicylates Acetaminophen Crossmatch 04/27/19 04/28/19 04/28/19 23:50 05:18 11:37 WBC RBC Hgb Hct MCV MCH MCHC RDW Plt Count Lymph % (Auto) [place] % (Auto) Eos % (Auto) Baso % (Auto) Lymph # [place] # Eos # Baso # Seg Neutrophils % Seg Neuts % (Manual) Lymphocytes % (Manual) Eosinophils % (Manual) Seg Neutrophils # Lymphocytes # (Manual) Eosinophils # (Manual) PT INR D-Dimer POC ABG pH POC ABG pCO2 POC ABG pO2 ABG pO2 ABG HCO3 ABG Base Excess ABG Hemoglobin Oxyhemoglobin Sodium Potassium Chloride Carbon Dioxide BUN Creatinine Glucose POC Glucose 160 H 145 H 177 H Calcium Phosphorus Magnesium ALT Alkaline Phosphatase Total Creatine Kinase CK-MB (CK-2) Rel Index Troponin T Albumin LDL Cholesterol Direct PTH Intact Salicylates Acetaminophen Crossmatch 04/28/19 04/28/19 04/29/19 18:31 23:47 05:50 WBC RBC Hgb Hct MCV MCH MCHC RDW Plt Count Lymph % (Auto) [place] % (Auto) Eos % (Auto) Baso % (Auto) Lymph # [place] # Eos # Baso # Seg Neutrophils % Seg Neuts % (Manual) Lymphocytes % (Manual) Eosinophils % (Manual) Seg Neutrophils # Lymphocytes # (Manual) Eosinophils # (Manual) PT INR D-Dimer POC ABG pH POC ABG pCO2 POC ABG pO2 ABG pO2 ABG HCO3 ABG Base Excess ABG Hemoglobin Oxyhemoglobin Sodium Potassium Chloride Carbon Dioxide BUN Creatinine Glucose POC Glucose 153 H 117 H 177 H Calcium Phosphorus Magnesium ALT Alkaline Phosphatase Total Creatine Kinase CK-MB (CK-2) Rel Index Troponin T Albumin LDL Cholesterol Direct PTH Intact Salicylates Acetaminophen Crossmatch 04/29/19 04/30/19 04/30/19 17:04 01:02 06:42 WBC RBC Hgb Hct MCV MCH MCHC RDW Plt Count Lymph % (Auto) [place] % (Auto) Eos % (Auto) Baso % (Auto) Lymph # [place] # Eos # Baso # Seg Neutrophils % Seg Neuts % (Manual) Lymphocytes % (Manual) Eosinophils % (Manual) Seg Neutrophils # Lymphocytes # (Manual) Eosinophils # (Manual) PT INR D-Dimer POC ABG pH POC ABG pCO2 POC ABG pO2 ABG pO2 ABG HCO3 ABG Base Excess ABG Hemoglobin Oxyhemoglobin Sodium Potassium Chloride Carbon Dioxide BUN Creatinine Glucose POC Glucose 205 H 143 H 145 H Calcium Phosphorus Magnesium ALT Alkaline Phosphatase Total Creatine Kinase CK-MB (CK-2) Rel Index Troponin T Albumin LDL Cholesterol Direct PTH Intact Salicylates Acetaminophen Crossmatch 04/30/19 04/30/19 04/30/19 11:31 18:12 23:38 WBC RBC Hgb Hct MCV MCH MCHC RDW Plt Count Lymph % (Auto) [place] % (Auto) Eos % (Auto) Baso % (Auto) Lymph # [place] # Eos # Baso # Seg Neutrophils % Seg Neuts % (Manual) Lymphocytes % (Manual) Eosinophils % (Manual) Seg Neutrophils # Lymphocytes # (Manual) Eosinophils # (Manual) PT INR D-Dimer POC ABG pH POC ABG pCO2 POC ABG pO2 ABG pO2 ABG HCO3 ABG Base Excess ABG Hemoglobin Oxyhemoglobin Sodium Potassium Chloride Carbon Dioxide BUN Creatinine Glucose POC Glucose 162 H 117 H 139 H Calcium Phosphorus Magnesium ALT Alkaline Phosphatase Total Creatine Kinase CK-MB (CK-2) Rel Index Troponin T Albumin LDL Cholesterol Direct PTH Intact Salicylates Acetaminophen Crossmatch 05/01/19 05/01/19 05/02/19 06:06 23:41 05:59 WBC RBC Hgb Hct MCV MCH MCHC RDW Plt Count Lymph % (Auto) [place] % (Auto) Eos % (Auto) Baso % (Auto) Lymph # [place] # Eos # Baso # Seg Neutrophils % Seg Neuts % (Manual) Lymphocytes % (Manual) Eosinophils % (Manual) Seg Neutrophils # Lymphocytes # (Manual) Eosinophils # (Manual) PT INR D-Dimer POC ABG pH POC ABG pCO2 POC ABG pO2 ABG pO2 ABG HCO3 ABG Base Excess ABG Hemoglobin Oxyhemoglobin Sodium Potassium Chloride Carbon Dioxide BUN Creatinine Glucose POC Glucose 150 H 140 H 130 H Calcium Phosphorus Magnesium ALT Alkaline Phosphatase Total Creatine Kinase CK-MB (CK-2) Rel Index Troponin T Albumin LDL Cholesterol Direct PTH Intact Salicylates Acetaminophen Crossmatch 05/02/19 05/02/19 05/03/19 11:55 18:10 00:15 WBC RBC Hgb Hct MCV MCH MCHC RDW Plt Count Lymph % (Auto) [place] % (Auto) Eos % (Auto) Baso % (Auto) Lymph # [place] # Eos # Baso # Seg Neutrophils % Seg Neuts % (Manual) Lymphocytes % (Manual) Eosinophils % (Manual) Seg Neutrophils # Lymphocytes # (Manual) Eosinophils # (Manual) PT INR D-Dimer POC ABG pH POC ABG pCO2 POC ABG pO2 ABG pO2 ABG HCO3 ABG Base Excess ABG Hemoglobin Oxyhemoglobin Sodium Potassium Chloride Carbon Dioxide BUN Creatinine Glucose POC Glucose 146 H 141 H 145 H Calcium Phosphorus Magnesium ALT Alkaline Phosphatase Total Creatine Kinase CK-MB (CK-2) Rel Index Troponin T Albumin LDL Cholesterol Direct PTH Intact Salicylates Acetaminophen Crossmatch 05/03/19 05/03/19 05/03/19 05:49 05:49 06:01 WBC RBC 2.84 L Hgb 7.2 L Hct 22.9 L MCV 81 L MCH 26 L MCHC RDW 20.6 H Plt Count 456 H Lymph % (Auto) 11.8 L [place] % (Auto) Eos % (Auto) 10.6 H Baso % (Auto) Lymph # 1.1 L [place] # Eos # 1.0 H Baso # Seg Neutrophils % 70.4 H Seg Neuts % (Manual) Lymphocytes % (Manual) Eosinophils % (Manual) Seg Neutrophils # Lymphocytes # (Manual) Eosinophils # (Manual) PT INR D-Dimer POC ABG pH POC ABG pCO2 POC ABG pO2 ABG pO2 ABG HCO3 ABG Base Excess ABG Hemoglobin Oxyhemoglobin Sodium Potassium Chloride 94.8 L Carbon Dioxide BUN 66 H Creatinine 3.6 H Glucose 129 H POC Glucose 135 H Calcium Phosphorus Magnesium ALT Alkaline Phosphatase Total Creatine Kinase CK-MB (CK-2) Rel Index Troponin T Albumin LDL Cholesterol Direct PTH Intact Salicylates Acetaminophen Crossmatch 05/03/19 05/03/19 05/04/19 11:04 18:40 00:06 WBC RBC Hgb Hct MCV MCH MCHC RDW Plt Count Lymph % (Auto) [place] % (Auto) Eos % (Auto) Baso % (Auto) Lymph # [place] # Eos # Baso # Seg Neutrophils % Seg Neuts % (Manual) Lymphocytes % (Manual) Eosinophils % (Manual) Seg Neutrophils # Lymphocytes # (Manual) Eosinophils # (Manual) PT INR D-Dimer POC ABG pH POC ABG pCO2 POC ABG pO2 ABG pO2 ABG HCO3 ABG Base Excess ABG Hemoglobin Oxyhemoglobin Sodium Potassium Chloride Carbon Dioxide BUN Creatinine Glucose POC Glucose 191 H 167 H 137 H Calcium Phosphorus Magnesium ALT Alkaline Phosphatase Total Creatine Kinase CK-MB (CK-2) Rel Index Troponin T Albumin LDL Cholesterol Direct PTH Intact Salicylates Acetaminophen Crossmatch 05/04/19 05/04/19 05/04/19 06:44 07:30 07:30 WBC 15.8 H RBC 2.74 L Hgb 6.7 L Hct 22.2 L MCV 81 L MCH 24 L MCHC 30 L RDW 20.4 H Plt Count 450 H Lymph % (Auto) 5.1 L [place] % (Auto) Eos % (Auto) Baso % (Auto) Lymph # 0.8 L [place] # Eos # 0.6 H Baso # Seg Neutrophils % 86.3 H Seg Neuts % (Manual) Lymphocytes % (Manual) Eosinophils % (Manual) Seg Neutrophils # 13.6 H Lymphocytes # (Manual) Eosinophils # (Manual) PT INR D-Dimer POC ABG pH POC ABG pCO2 POC ABG pO2 ABG pO2 ABG HCO3 ABG Base Excess ABG Hemoglobin Oxyhemoglobin Sodium Potassium Chloride 95.2 L Carbon Dioxide BUN 92 H Creatinine 4.8 H Glucose 139 H POC Glucose 153 H Calcium Phosphorus Magnesium ALT Alkaline Phosphatase Total Creatine Kinase CK-MB (CK-2) Rel Index Troponin T Albumin LDL Cholesterol Direct PTH Intact Salicylates Acetaminophen Crossmatch 05/04/19 05/04/19 05/05/19 12:55 16:31 01:02 WBC RBC Hgb Hct MCV MCH MCHC RDW Plt Count Lymph % (Auto) [place] % (Auto) Eos % (Auto) Baso % (Auto) Lymph # [place] # Eos # Baso # Seg Neutrophils % Seg Neuts % (Manual) Lymphocytes % (Manual) Eosinophils % (Manual) Seg Neutrophils # Lymphocytes # (Manual) Eosinophils # (Manual) PT INR D-Dimer POC ABG pH POC ABG pCO2 POC ABG pO2 ABG pO2 ABG HCO3 ABG Base Excess ABG Hemoglobin Oxyhemoglobin Sodium Potassium Chloride Carbon Dioxide BUN Creatinine Glucose POC Glucose 169 H 171 H Calcium Phosphorus Magnesium ALT Alkaline Phosphatase Total Creatine Kinase CK-MB (CK-2) Rel Index Troponin T Albumin LDL Cholesterol Direct PTH Intact Salicylates Acetaminophen Crossmatch See Detail 05/05/19 05/05/19 05/05/19 05:26 05:36 11:48 WBC 12.6 H RBC 2.73 L Hgb 6.9 L Hct 22.3 L MCV 82 L MCH 25 L MCHC 31 L RDW 21.0 H Plt Count Lymph % (Auto) 8.9 L [place] % (Auto) Eos % (Auto) Baso % (Auto) Lymph # 1.1 L [place] # 0.9 H Eos # Baso # Seg Neutrophils % 80.7 H Seg Neuts % (Manual) Lymphocytes % (Manual) Eosinophils % (Manual) Seg Neutrophils # 10.2 H Lymphocytes # (Manual) Eosinophils # (Manual) PT INR D-Dimer POC ABG pH POC ABG pCO2 POC ABG pO2 ABG pO2 ABG HCO3 ABG Base Excess ABG Hemoglobin Oxyhemoglobin Sodium Potassium Chloride Carbon Dioxide BUN Creatinine Glucose POC Glucose 153 H 173 H Calcium Phosphorus Magnesium ALT Alkaline Phosphatase Total Creatine Kinase CK-MB (CK-2) Rel Index Troponin T Albumin LDL Cholesterol Direct PTH Intact Salicylates Acetaminophen Crossmatch 05/05/19 05/06/19 05/06/19 16:42 02:24 06:12 WBC RBC Hgb Hct MCV MCH MCHC RDW Plt Count Lymph % (Auto) [place] % (Auto) Eos % (Auto) Baso % (Auto) Lymph # [place] # Eos # Baso # Seg Neutrophils % Seg Neuts % (Manual) Lymphocytes % (Manual) Eosinophils % (Manual) Seg Neutrophils # Lymphocytes # (Manual) Eosinophils # (Manual) PT INR D-Dimer POC ABG pH POC ABG pCO2 POC ABG pO2 ABG pO2 ABG HCO3 ABG Base Excess ABG Hemoglobin Oxyhemoglobin Sodium Potassium Chloride Carbon Dioxide BUN Creatinine Glucose POC Glucose 126 H 138 H 151 H Calcium Phosphorus Magnesium ALT Alkaline Phosphatase Total Creatine Kinase CK-MB (CK-2) Rel Index Troponin T Albumin LDL Cholesterol Direct PTH Intact Salicylates Acetaminophen Crossmatch 05/06/19 05/06/19 05/06/19 08:15 16:48 23:16 WBC 11.8 H RBC 2.72 L Hgb 6.7 L Hct 21.7 L MCV 80 L MCH 25 L MCHC 31 L RDW 20.9 H Plt Count Lymph % (Auto) [place] % (Auto) Eos % (Auto) Baso % (Auto) Lymph # [place] # Eos # Baso # Seg Neutrophils % Seg Neuts % (Manual) Lymphocytes % (Manual) Eosinophils % (Manual) Seg Neutrophils # Lymphocytes # (Manual) Eosinophils # (Manual) PT INR D-Dimer POC ABG pH POC ABG pCO2 POC ABG pO2 ABG pO2 ABG HCO3 ABG Base Excess ABG Hemoglobin Oxyhemoglobin Sodium Potassium Chloride Carbon Dioxide BUN Creatinine Glucose POC Glucose 153 H 143 H Calcium Phosphorus Magnesium ALT Alkaline Phosphatase Total Creatine Kinase CK-MB (CK-2) Rel Index Troponin T Albumin LDL Cholesterol Direct PTH Intact Salicylates Acetaminophen Crossmatch 05/07/19 05/07/19 05/07/19 06:00 06:30 12:33 WBC RBC 3.53 L Hgb 9.1 L Hct 28.6 L D MCV 81 L MCH 26 L MCHC RDW 19.1 H Plt Count Lymph % (Auto) 9.6 L [place] % (Auto) Eos % (Auto) 4.8 H Baso % (Auto) Lymph # 1.1 L [place] # Eos # 0.5 H Baso # Seg Neutrophils % 77.8 H Seg Neuts % (Manual) Lymphocytes % (Manual) Eosinophils % (Manual) Seg Neutrophils # 8.6 H Lymphocytes # (Manual) Eosinophils # (Manual) PT INR D-Dimer POC ABG pH POC ABG pCO2 POC ABG pO2 ABG pO2 ABG HCO3 ABG Base Excess ABG Hemoglobin Oxyhemoglobin Sodium Potassium Chloride Carbon Dioxide BUN Creatinine Glucose POC Glucose 122 H 140 H Calcium Phosphorus Magnesium ALT Alkaline Phosphatase Total Creatine Kinase CK-MB (CK-2) Rel Index Troponin T Albumin LDL Cholesterol Direct PTH Intact Salicylates Acetaminophen Crossmatch 05/07/19 05/07/19 05/08/19 16:41 23:55 05:10 WBC 11.6 H RBC 3.54 L Hgb 9.1 L Hct 29.1 L MCV 82 L MCH 26 L MCHC 31 L RDW 19.6 H Plt Count Lymph % (Auto) 6.6 L [place] % (Auto) Eos % (Auto) Baso % (Auto) 1.9 H Lymph # 0.8 L [place] # Eos # Baso # 0.2 H Seg Neutrophils % 82.6 H Seg Neuts % (Manual) Lymphocytes % (Manual) Eosinophils % (Manual) Seg Neutrophils # 9.6 H Lymphocytes # (Manual) Eosinophils # (Manual) PT INR D-Dimer POC ABG pH POC ABG pCO2 POC ABG pO2 ABG pO2 ABG HCO3 ABG Base Excess ABG Hemoglobin Oxyhemoglobin Sodium Potassium Chloride Carbon Dioxide BUN Creatinine Glucose POC Glucose 143 H 153 H Calcium Phosphorus Magnesium ALT Alkaline Phosphatase Total Creatine Kinase CK-MB (CK-2) Rel Index Troponin T Albumin LDL Cholesterol Direct PTH Intact Salicylates Acetaminophen Crossmatch 05/08/19 05/08/19 05/09/19 06:09 16:55 03:27 WBC RBC Hgb Hct MCV MCH MCHC RDW Plt Count Lymph % (Auto) [place] % (Auto) Eos % (Auto) Baso % (Auto) Lymph # [place] # Eos # Baso # Seg Neutrophils % Seg Neuts % (Manual) Lymphocytes % (Manual) Eosinophils % (Manual) Seg Neutrophils # Lymphocytes # (Manual) Eosinophils # (Manual) PT INR D-Dimer POC ABG pH POC ABG pCO2 POC ABG pO2 ABG pO2 ABG HCO3 ABG Base Excess ABG Hemoglobin Oxyhemoglobin Sodium Potassium Chloride Carbon Dioxide BUN Creatinine Glucose POC Glucose 204 H 196 H 175 H Calcium Phosphorus Magnesium ALT Alkaline Phosphatase Total Creatine Kinase CK-MB (CK-2) Rel Index Troponin T Albumin LDL Cholesterol Direct PTH Intact Salicylates Acetaminophen Crossmatch 05/09/19 05/09/19 05/09/19 06:00 11:00 12:41 WBC 12.0 H RBC Hgb 9.7 L Hct 30.2 L MCV 83 L MCH 26 L MCHC RDW 20.1 H Plt Count Lymph % (Auto) 7.4 L [place] % (Auto) 7.6 H Eos % (Auto) Baso % (Auto) Lymph # 0.9 L [place] # 0.9 H Eos # Baso # Seg Neutrophils % 80.7 H Seg Neuts % (Manual) Lymphocytes % (Manual) Eosinophils % (Manual) Seg Neutrophils # 9.7 H Lymphocytes # (Manual) Eosinophils # (Manual) PT INR D-Dimer POC ABG pH POC ABG pCO2 POC ABG pO2 ABG pO2 ABG HCO3 ABG Base Excess ABG Hemoglobin Oxyhemoglobin Sodium Potassium Chloride Carbon Dioxide BUN Creatinine Glucose POC Glucose 172 H 168 H Calcium Phosphorus Magnesium ALT Alkaline Phosphatase Total Creatine Kinase CK-MB (CK-2) Rel Index Troponin T Albumin LDL Cholesterol Direct PTH Intact Salicylates Acetaminophen Crossmatch 05/09/19 05/10/19 05/10/19 17:45 01:26 06:07 WBC RBC Hgb Hct MCV MCH MCHC RDW Plt Count Lymph % (Auto) [place] % (Auto) Eos % (Auto) Baso % (Auto) Lymph # [place] # Eos # Baso # Seg Neutrophils % Seg Neuts % (Manual) Lymphocytes % (Manual) Eosinophils % (Manual) Seg Neutrophils # Lymphocytes # (Manual) Eosinophils # (Manual) PT INR D-Dimer POC ABG pH POC ABG pCO2 POC ABG pO2 ABG pO2 ABG HCO3 ABG Base Excess ABG Hemoglobin Oxyhemoglobin Sodium Potassium Chloride Carbon Dioxide BUN Creatinine Glucose POC Glucose 167 H 174 H 179 H Calcium Phosphorus Magnesium ALT Alkaline Phosphatase Total Creatine Kinase CK-MB (CK-2) Rel Index Troponin T Albumin LDL Cholesterol Direct PTH Intact Salicylates Acetaminophen Crossmatch 05/10/19 05/10/19 05/10/19 06:45 12:31 17:18 WBC RBC Hgb Hct MCV MCH MCHC RDW Plt Count Lymph % (Auto) [place] % (Auto) Eos % (Auto) Baso % (Auto) Lymph # [place] # Eos # Baso # Seg Neutrophils % Seg Neuts % (Manual) Lymphocytes % (Manual) Eosinophils % (Manual) Seg Neutrophils # Lymphocytes # (Manual) Eosinophils # (Manual) PT INR D-Dimer POC ABG pH POC ABG pCO2 POC ABG pO2 ABG pO2 ABG HCO3 ABG Base Excess ABG Hemoglobin Oxyhemoglobin Sodium 134 L Potassium Chloride 90.2 L Carbon Dioxide BUN 82 H Creatinine 4.1 H Glucose 195 H POC Glucose 201 H 197 H Calcium Phosphorus Magnesium ALT Alkaline Phosphatase Total Creatine Kinase CK-MB (CK-2) Rel Index Troponin T Albumin LDL Cholesterol Direct PTH Intact Salicylates Acetaminophen Crossmatch 05/11/19 05/11/19 05/11/19 00:20 06:30 17:38 WBC RBC Hgb Hct MCV MCH MCHC RDW Plt Count Lymph % (Auto) [place] % (Auto) Eos % (Auto) Baso % (Auto) Lymph # [place] # Eos # Baso # Seg Neutrophils % Seg Neuts % (Manual) Lymphocytes % (Manual) Eosinophils % (Manual) Seg Neutrophils # Lymphocytes # (Manual) Eosinophils # (Manual) PT INR D-Dimer POC ABG pH POC ABG pCO2 POC ABG pO2 ABG pO2 ABG HCO3 ABG Base Excess ABG Hemoglobin Oxyhemoglobin Sodium Potassium Chloride Carbon Dioxide BUN Creatinine Glucose POC Glucose 131 H 148 H 198 H Calcium Phosphorus Magnesium ALT Alkaline Phosphatase Total Creatine Kinase CK-MB (CK-2) Rel Index Troponin T Albumin LDL Cholesterol Direct PTH Intact Salicylates Acetaminophen Crossmatch 05/12/19 05/12/19 05/12/19 00:44 06:13 07:15 WBC RBC 3.32 L Hgb 8.7 L Hct 27.8 L MCV MCH 26 L MCHC 31 L RDW 19.8 H Plt Count Lymph % (Auto) 6.9 L [place] % (Auto) Eos % (Auto) 6.5 H Baso % (Auto) Lymph # 0.7 L [place] # Eos # 0.6 H Baso # Seg Neutrophils % 78.6 H Seg Neuts % (Manual) Lymphocytes % (Manual) Eosinophils % (Manual) Seg Neutrophils # 7.8 H Lymphocytes # (Manual) Eosinophils # (Manual) PT INR D-Dimer POC ABG pH POC ABG pCO2 POC ABG pO2 ABG pO2 ABG HCO3 ABG Base Excess ABG Hemoglobin Oxyhemoglobin Sodium Potassium Chloride Carbon Dioxide BUN Creatinine Glucose POC Glucose 170 H 133 H Calcium Phosphorus Magnesium ALT Alkaline Phosphatase Total Creatine Kinase CK-MB (CK-2) Rel Index Troponin T Albumin LDL Cholesterol Direct PTH Intact Salicylates Acetaminophen Crossmatch 05/12/19 05/12/19 05/12/19 07:15 11:17 17:37 WBC RBC Hgb Hct MCV MCH MCHC RDW Plt Count Lymph % (Auto) [place] % (Auto) Eos % (Auto) Baso % (Auto) Lymph # [place] # Eos # Baso # Seg Neutrophils % Seg Neuts % (Manual) Lymphocytes % (Manual) Eosinophils % (Manual) Seg Neutrophils # Lymphocytes # (Manual) Eosinophils # (Manual) PT INR D-Dimer POC ABG pH POC ABG pCO2 POC ABG pO2 ABG pO2 ABG HCO3 ABG Base Excess ABG Hemoglobin Oxyhemoglobin Sodium 135 L Potassium Chloride 94.2 L Carbon Dioxide BUN 59 H Creatinine 3.4 H Glucose 134 H POC Glucose 132 H 165 H Calcium Phosphorus Magnesium ALT Alkaline Phosphatase Total Creatine Kinase CK-MB (CK-2) Rel Index Troponin T Albumin LDL Cholesterol Direct PTH Intact Salicylates Acetaminophen Crossmatch 05/13/19 05/13/19 05/13/19 00:15 05:44 16:00 WBC RBC Hgb Hct MCV MCH MCHC RDW Plt Count Lymph % (Auto) [place] % (Auto) Eos % (Auto) Baso % (Auto) Lymph # [place] # Eos # Baso # Seg Neutrophils % Seg Neuts % (Manual) Lymphocytes % (Manual) Eosinophils % (Manual) Seg Neutrophils # Lymphocytes # (Manual) Eosinophils # (Manual) PT INR D-Dimer POC ABG pH POC ABG pCO2 POC ABG pO2 ABG pO2 ABG HCO3 ABG Base Excess ABG Hemoglobin Oxyhemoglobin Sodium Potassium Chloride Carbon Dioxide BUN Creatinine Glucose POC Glucose 144 H 133 H 221 H Calcium Phosphorus Magnesium ALT Alkaline Phosphatase Total Creatine Kinase CK-MB (CK-2) Rel Index Troponin T Albumin LDL Cholesterol Direct PTH Intact Salicylates Acetaminophen Crossmatch 05/14/19 05/14/19 05/14/19 06:44 11:56 16:42 WBC RBC Hgb Hct MCV MCH MCHC RDW Plt Count Lymph % (Auto) [place] % (Auto) Eos % (Auto) Baso % (Auto) Lymph # [place] # Eos # Baso # Seg Neutrophils % Seg Neuts % (Manual) Lymphocytes % (Manual) Eosinophils % (Manual) Seg Neutrophils # Lymphocytes # (Manual) Eosinophils # (Manual) PT INR D-Dimer POC ABG pH POC ABG pCO2 POC ABG pO2 ABG pO2 ABG HCO3 ABG Base Excess ABG Hemoglobin Oxyhemoglobin Sodium Potassium Chloride Carbon Dioxide BUN Creatinine Glucose POC Glucose 187 H 141 H 183 H Calcium Phosphorus Magnesium ALT Alkaline Phosphatase Total Creatine Kinase CK-MB (CK-2) Rel Index Troponin T Albumin LDL Cholesterol Direct PTH Intact Salicylates Acetaminophen Crossmatch 05/15/19 05/15/19 05/15/19 00:11 05:55 18:46 WBC RBC Hgb Hct MCV MCH MCHC RDW Plt Count Lymph % (Auto) [place] % (Auto) Eos % (Auto) Baso % (Auto) Lymph # [place] # Eos # Baso # Seg Neutrophils % Seg Neuts % (Manual) Lymphocytes % (Manual) Eosinophils % (Manual) Seg Neutrophils # Lymphocytes # (Manual) Eosinophils # (Manual) PT INR D-Dimer POC ABG pH POC ABG pCO2 POC ABG pO2 ABG pO2 ABG HCO3 ABG Base Excess ABG Hemoglobin Oxyhemoglobin Sodium Potassium Chloride Carbon Dioxide BUN Creatinine Glucose POC Glucose 169 H 119 H 173 H Calcium Phosphorus Magnesium ALT Alkaline Phosphatase Total Creatine Kinase CK-MB (CK-2) Rel Index Troponin T Albumin LDL Cholesterol Direct PTH Intact Salicylates Acetaminophen Crossmatch 05/16/19 05/16/19 05/16/19 00:18 06:17 12:47 WBC RBC Hgb Hct MCV MCH MCHC RDW Plt Count Lymph % (Auto) [place] % (Auto) Eos % (Auto) Baso % (Auto) Lymph # [place] # Eos # Baso # Seg Neutrophils % Seg Neuts % (Manual) Lymphocytes % (Manual) Eosinophils % (Manual) Seg Neutrophils # Lymphocytes # (Manual) Eosinophils # (Manual) PT INR D-Dimer POC ABG pH POC ABG pCO2 POC ABG pO2 ABG pO2 ABG HCO3 ABG Base Excess ABG Hemoglobin Oxyhemoglobin Sodium Potassium Chloride Carbon Dioxide BUN Creatinine Glucose POC Glucose 201 H 149 H 207 H Calcium Phosphorus Magnesium ALT Alkaline Phosphatase Total Creatine Kinase CK-MB (CK-2) Rel Index Troponin T Albumin LDL Cholesterol Direct PTH Intact Salicylates Acetaminophen Crossmatch 05/16/19 05/17/19 05/17/19 17:48 00:01 06:26 WBC RBC Hgb Hct MCV MCH MCHC RDW Plt Count Lymph % (Auto) [place] % (Auto) Eos % (Auto) Baso % (Auto) Lymph # [place] # Eos # Baso # Seg Neutrophils % Seg Neuts % (Manual) Lymphocytes % (Manual) Eosinophils % (Manual) Seg Neutrophils # Lymphocytes # (Manual) Eosinophils # (Manual) PT INR D-Dimer POC ABG pH POC ABG pCO2 POC ABG pO2 ABG pO2 ABG HCO3 ABG Base Excess ABG Hemoglobin Oxyhemoglobin Sodium Potassium Chloride Carbon Dioxide BUN Creatinine Glucose POC Glucose 183 H 176 H 177 H Calcium Phosphorus Magnesium ALT Alkaline Phosphatase Total Creatine Kinase CK-MB (CK-2) Rel Index Troponin T Albumin LDL Cholesterol Direct PTH Intact Salicylates Acetaminophen Crossmatch 05/17/19 05/17/19 05/18/19 12:19 17:45 00:30 WBC RBC Hgb Hct MCV MCH MCHC RDW Plt Count Lymph % (Auto) [place] % (Auto) Eos % (Auto) Baso % (Auto) Lymph # [place] # Eos # Baso # Seg Neutrophils % Seg Neuts % (Manual) Lymphocytes % (Manual) Eosinophils % (Manual) Seg Neutrophils # Lymphocytes # (Manual) Eosinophils # (Manual) PT INR D-Dimer POC ABG pH POC ABG pCO2 POC ABG pO2 ABG pO2 ABG HCO3 ABG Base Excess ABG Hemoglobin Oxyhemoglobin Sodium Potassium Chloride Carbon Dioxide BUN Creatinine Glucose POC Glucose 174 H 171 H 181 H Calcium Phosphorus Magnesium ALT Alkaline Phosphatase Total Creatine Kinase CK-MB (CK-2) Rel Index Troponin T Albumin LDL Cholesterol Direct PTH Intact Salicylates Acetaminophen Crossmatch 05/18/19 05/18/19 05/19/19 06:18 16:53 00:19 WBC RBC Hgb Hct MCV MCH MCHC RDW Plt Count Lymph % (Auto) [place] % (Auto) Eos % (Auto) Baso % (Auto) Lymph # [place] # Eos # Baso # Seg Neutrophils % Seg Neuts % (Manual) Lymphocytes % (Manual) Eosinophils % (Manual) Seg Neutrophils # Lymphocytes # (Manual) Eosinophils # (Manual) PT INR D-Dimer POC ABG pH POC ABG pCO2 POC ABG pO2 ABG pO2 ABG HCO3 ABG Base Excess ABG Hemoglobin Oxyhemoglobin Sodium Potassium Chloride Carbon Dioxide BUN Creatinine Glucose POC Glucose 165 H 166 H 207 H Calcium Phosphorus Magnesium ALT Alkaline Phosphatase Total Creatine Kinase CK-MB (CK-2) Rel Index Troponin T Albumin LDL Cholesterol Direct PTH Intact Salicylates Acetaminophen Crossmatch 05/19/19 05/19/19 05/19/19 01:00 01:00 05:15 WBC 11.6 H RBC 3.12 L Hgb 7.9 L Hct 25.9 L MCV 83 L MCH 25 L MCHC 31 L RDW 21.1 H Plt Count Lymph % (Auto) [place] % (Auto) Eos % (Auto) Baso % (Auto) Lymph # [place] # Eos # Baso # Seg Neutrophils % Seg Neuts % (Manual) Lymphocytes % (Manual) Eosinophils % (Manual) Seg Neutrophils # Lymphocytes # (Manual) Eosinophils # (Manual) PT INR D-Dimer POC ABG pH POC ABG pCO2 POC ABG pO2 ABG pO2 ABG HCO3 ABG Base Excess ABG Hemoglobin Oxyhemoglobin Sodium 135 L Potassium Chloride 93.6 L Carbon Dioxide BUN 64 H Creatinine 2.8 H Glucose 194 H POC Glucose 176 H Calcium Phosphorus Magnesium ALT Alkaline Phosphatase Total Creatine Kinase CK-MB (CK-2) Rel Index Troponin T Albumin LDL Cholesterol Direct PTH Intact Salicylates Acetaminophen Crossmatch 05/19/19 05/19/19 05/20/19 11:21 18:48 00:01 WBC RBC Hgb Hct MCV MCH MCHC RDW Plt Count Lymph % (Auto) [place] % (Auto) Eos % (Auto) Baso % (Auto) Lymph # [place] # Eos # Baso # Seg Neutrophils % Seg Neuts % (Manual) Lymphocytes % (Manual) Eosinophils % (Manual) Seg Neutrophils # Lymphocytes # (Manual) Eosinophils # (Manual) PT INR D-Dimer POC ABG pH POC ABG pCO2 POC ABG pO2 ABG pO2 ABG HCO3 ABG Base Excess ABG Hemoglobin Oxyhemoglobin Sodium Potassium Chloride Carbon Dioxide BUN Creatinine Glucose POC Glucose 162 H 140 H 200 H Calcium Phosphorus Magnesium ALT Alkaline Phosphatase Total Creatine Kinase CK-MB (CK-2) Rel Index Troponin T Albumin LDL Cholesterol Direct PTH Intact Salicylates Acetaminophen Crossmatch 05/20/19 05:58 WBC RBC Hgb Hct MCV MCH MCHC RDW Plt Count Lymph % (Auto) [place] % (Auto) Eos % (Auto) Baso % (Auto) Lymph # [place] # Eos # Baso # Seg Neutrophils % Seg Neuts % (Manual) Lymphocytes % (Manual) Eosinophils % (Manual) Seg Neutrophils # Lymphocytes # (Manual) Eosinophils # (Manual) PT INR D-Dimer POC ABG pH POC ABG pCO2 POC ABG pO2 ABG pO2 ABG HCO3 ABG Base Excess ABG Hemoglobin Oxyhemoglobin Sodium Potassium Chloride Carbon Dioxide BUN Creatinine Glucose POC Glucose 132 H Calcium Phosphorus Magnesium ALT Alkaline Phosphatase Total Creatine Kinase CK-MB (CK-2) Rel Index Troponin T Albumin LDL Cholesterol Direct PTH Intact Salicylates Acetaminophen Crossmatch
--- NOTE | 2019-05-20 14:09 | Progress Note ---
Assessment and Plan Cultures: Blood cultures 12/26/2018 no growth today. Blood cultures 01/01/2019 no growth today. Wound cultures 01/02/2019 ESBL Kleb, MDR Ecoli and E raffinosus resistant to penicillin. 03/14 Sputum Cx: MDR Acinetobacter 03/14 BCx: NGTD 03/17 Sputum CX: MDR Acinetobacter Assessment: 63 y/o male with history of ESRD on HD, HTN, CAD S/P CABG, CVA, DM, Atrial Fib, Anemia, Hyperparathyroidism, Hypocalcemia, schizophrenia; well known to ID service from previous admissions, most recently on 12/26/2018 due to sepsis from unstagable necrotic sacral decubitus s/p OR on 01/01/2019 for open excisional debridement of necrotic sacral wound with ESBL Kleb, MDR Ecoli, treated with Meropenem 1 gm IV every 24 hours via tunneled catheter and Vancomycin 1 gm post HD Saturday, and Saturday for 6 weeks ending 02-16-19; readmitted: 1. Sepsis: again with fevers and leukocytosis, tachycardia. Would assume repeat tracheitis. Obtain sputum cultures. Given his history of MDR I would avoid empiric antibiotics as we have so few options left. Will give targeted antibiotics pending sputum results. Strongly need to consider hospice. 2. Hypoxic respiratory failure - per pulmonary. off vent. Capping trials 3. DM2 4. Left 5th finger pressure ulcer: not infected 5. Sacral stage IV ulcer s/p extensive treatment - NOT infected currently; treated with Meropenem 1 gm IV every 24 hours via tunneled catheter and Vancomycin 1 gm post HD Saturday, and Saturday for 6 weeks ending 02-16-19 6. ESRD on HD Recommendations: - ordered sputum cultures - please collect - contact precautions - consider hospice, he will continue to develop worsening resistance and we will exhaust all therapeutic options for Acinetobacter very quicky. Will follow. Sherman Shirley MD [facility] ([facility] M: [phone] O: [phone] F: [phone] Subjective Date of service: 05/20/19 Principal diagnosis: Respiratory failure, acute on chronic systolic HF, ESRD Interval history: No acute change at present. Objective - Exam Narrative Exam: Constitutional: Alert, cooperative. No acute distress Neck: Supple, no meningeal signs. Trach in place. Oral: dentition fair, no thrush Cardiovascular: S1, S2 normal. Respiratory: Good air entry, clear to auscultation bilaterally GI: Soft, non-tender; bowel sounds normal. No peritoneal signs. Musculoskeletal: No pedal edema, no cyanosis. Skin: No rash or abscess Neurological: Awake, trached. No gross abnormality - Constitutional Vitals: Vital Signs Temp Pulse Resp BP Pulse Ox 98.3 F 106 H 16 100/59 86 05/20/19 12:15 05/20/19 12:15 05/20/19 12:15 05/20/19 12:15 05/20/19 08:23 Temperature -Last 24 Hours Temperature 98.3 F Temperature 99.1 F Temperature 98.8 F Temperature 98.9 F Temperature 98.3 F Temperature 98.8 F Temperature 97.3 F - Labs CBC & Chem 7: 05/19/19 01:00 05/19/19 01:00 Labs: Abnormal lab results 05/19/19 05/20/19 05/20/19 Range/Units 18:48 00:01 05:58 POC Glucose 140 H 200 H 132 H (70-105)
[2019-05-20] MEDS: SODIUM HYPOCHLORITE, DAKIN'S 1/2 STRENGTH (0.25%) 473 ML TOPICAL SOLN TP SCH ×2 (14:31→21:45)
[2019-05-20] MEDS: SERTRALINE 100 MG TAB PO SCH (14:32)
[2019-05-20] MEDS: risperiDONE 1 MG TAB PO SCH (14:32)
[2019-05-20] MEDS: FAMOTIDINE 20 MG TAB PO SCH (14:32)
[2019-05-21] MEDS: INSULIN REGULAR, HUMAN 100 UNITS/1 ML SUB-Q SCH ×4 (00:46→23:26)
[2019-05-21] MEDS: IPRATROPIUM/ALBUTEROL SULFATE 3 ML AMPUL.NEB IH SCH ×3 (09:30→19:34)
[2019-05-21] MEDS: SERTRALINE 100 MG TAB PO SCH (11:06)
[2019-05-21] MEDS: FAMOTIDINE 20 MG TAB PO SCH (11:06)
[2019-05-21] MEDS: risperiDONE 1 MG TAB PO SCH (11:06)
[2019-05-21] MEDS: SODIUM HYPOCHLORITE, DAKIN'S 1/2 STRENGTH (0.25%) 473 ML TOPICAL SOLN TP SCH ×2 (11:07→23:34)
--- NOTE | 2019-05-21 11:56 | Progress Note ---
Assessment and Plan Cultures: Blood cultures 12/26/2018 no growth today. Blood cultures 01/01/2019 no growth today. Wound cultures 01/02/2019 ESBL Kleb, MDR Ecoli and E raffinosus resistant to penicillin. 03/14 Sputum Cx: MDR Acinetobacter 03/14 BCx: NGTD 03/17 Sputum CX: MDR Acinetobacter Assessment: 63 y/o male with history of ESRD on HD, HTN, CAD S/P CABG, CVA, DM, Atrial Fib, Anemia, Hyperparathyroidism, Hypocalcemia, schizophrenia; well known to ID service from previous admissions, most recently on 12/26/2018 due to sepsis from unstagable necrotic sacral decubitus s/p OR on 01/01/2019 for open excisional debridement of necrotic sacral wound with ESBL Kleb, MDR Ecoli, treated with Meropenem 1 gm IV every 24 hours via tunneled catheter and Vancomycin 1 gm post HD Saturday, and Saturday for 6 weeks ending 02-16-19; readmitted: 1. Sepsis: again with fevers and leukocytosis, tachycardia. Would assume repeat tracheitis. Obtain sputum cultures. Given his history of MDR I would avoid empiric antibiotics as we have so few options left. Will give targeted antibiotics pending sputum results. Strongly need to consider hospice. 2. Hypoxic respiratory failure - per pulmonary. off vent. Capping trials 3. DM2 4. Left 5th finger pressure ulcer: not infected 5. Sacral stage IV ulcer s/p extensive treatment - NOT infected currently; treated with Meropenem 1 gm IV every 24 hours via tunneled catheter and Vancomycin 1 gm post HD Saturday, and Saturday for 6 weeks ending 02-16-19 6. ESRD on HD Recommendations: - ordered sputum cultures - please collect - Would not start antibitoics in the absence of culture data. Fevers have not re curred. - contact precautions - consider hospice, he will continue to develop worsening resistance and we will exhaust all therapeutic options for Acinetobacter very quicky. Will follow. Sherman Shirley MD [facility] M: [phone] O: [phone] F: [phone] Subjective Date of service: 05/21/19 Principal diagnosis: Respiratory failure, acute on chronic systolic HF, ESRD Interval history: No acute change at present. Sputum culture not obtained. Objective - Exam Narrative Exam: Constitutional: Alert, cooperative. No acute distress Neck: Supple, no meningeal signs. Trach in place. Oral: dentition fair, no thrush Cardiovascular: S1, S2 normal. Respiratory: Good air entry, clear to auscultation bilaterally GI: Soft, non-tender; bowel sounds normal. No peritoneal signs. Musculoskeletal: No pedal edema, no cyanosis. Skin: No rash or abscess Neurological: Awake, trached. No gross abnormality - Constitutional Vitals: Vital Signs Temp Pulse Resp BP Pulse Ox 98.2 F 117 H 20 123/63 100 05/21/19 05:40 05/21/19 09:45 05/21/19 09:45 05/21/19 05:40 05/21/19 09:30 Temperature -Last 24 Hours Temperature 98.2 F Temperature 98.1 F Temperature 97.4 F Temperature 98.3 F - Labs CBC & Chem 7: 05/19/19 01:00 05/19/19 01:00 Labs: Abnormal lab results 05/20/19 05/21/19 05/21/19 Range/Units 17:50 00:43 06:06 POC Glucose 154 H 165 H 178 H (70-105) 05/21/19 Range/Units 11:15 POC Glucose 218 H (70-105)
--- NOTE | 2019-05-21 13:12 | Progress Note ---
Assessment and Plan 63 y/o male with multiple medical issues admitted with altered mental status, acute respiratory failure requiring mechanical ventilation, now trached, on HD unable to find placement given this combination, now with recurrent fevers. No new recommendations for today. 1. Continue capping trials. Nasal cannula therapy. 2. HD per renal 3. PT/OT if possible 4. CM working on placement 5. No objection to discharge once placement is found Agree with ID note. Patient is a DNR. He is not to be placed back on the ventilator. Acetinetobacter was seen in lungs last time, most likely could resurface their again. Remainder for those who are not as familiar with this case. Patient has been in the hospital on this particular stay almost 3 months. Subjective Date of service: 05/21/19 Principal diagnosis: Respiratory failure, acute on chronic systolic HF, ESRD Interval history: No acute events. Moved down to the third floor. Remains capped. Objective Vital Signs - 12hr 05/21/19 05/21/19 05/21/19 05:40 09:30 09:45 Temperature 98.2 F Pulse Rate 123 H Pulse Rate [ 117 H Anterior Bilateral Throughout] Respiratory 16 Rate Respiratory 20 Rate [Anterior Bilateral Throughout] Blood Pressure 123/63 Blood Pressure [Right] O2 Sat by Pulse 100 100 Oximetry O2 Sat by Pulse Oximetry [ Assessment] 05/21/19 05/21/19 05/21/19 11:31 12:00 12:26 Temperature 98.1 F Pulse Rate 119 H Pulse Rate [ Anterior Bilateral Throughout] Respiratory 20 Rate Respiratory Rate [Anterior Bilateral Throughout] Blood Pressure Blood Pressure 128/56 [Right] O2 Sat by Pulse 96 100 Oximetry O2 Sat by Pulse Oximetry [ Assessment] 05/21/19 12:29 Temperature Pulse Rate Pulse Rate [ Anterior Bilateral Throughout] Respiratory Rate Respiratory Rate [Anterior Bilateral Throughout] Blood Pressure Blood Pressure [Right] O2 Sat by Pulse Oximetry O2 Sat by Pulse 100 Oximetry [ Assessment] Constitutional: no acute distress, alert Eyes: non-icteric ENT: oropharynx moist Neck: supple Effort: normal Ascultation: Bilateral: diminished breath sounds, other (coarse BS bilaterally) Percussion: Bilateral: not dull Cardiovascular: regular rate and rhythm (no mrg) Gastrointestinal: normoactive bowel sounds, soft, non-tender, non-distended, other (ostomy in place, brown stool) Extremities: no cyanosis, no edema, pink and warm Neurologic: other (mild weakness LUE, o/w nonfocal) Psychiatric: other (unable to assess) CBC and BMP: 05/19/19 01:00 05/19/19 01:00 ABG, PT/INR, D-dimer: ABG POC ABG pH 7.510 (7.35-7.45) H 03/18/19 06:38 ABG pH 7.424 pH Units (7.350-7.450) 03/19/19 04:23 POC ABG pCO2 38.9 (35-45) 03/18/19 06:38 ABG pCO2 48.0 mm Hg 03/19/19 04:23 POC ABG pO2 164 (80-105) H 03/18/19 06:38 ABG pO2 78.3 mm Hg (80.0-90.0) L 03/19/19 04:23 POC ABG HCO3 31.0 (22-26 mml/L) 03/18/19 06:38 POC ABG Total CO2 32 (23-27mmol/L) 03/18/19 06:38 POC ABG O2 Sat 100 03/18/19 06:38 ABG O2 Saturation 97.0 % (95.0-99.0) 03/19/19 04:23 PT/INR, D-dimer PT 16.3 Sec. (12.2-14.9) H 03/01/19 09:39 INR 1.35 (0.87-1.13) H 03/01/19 09:39 D-Dimer 2987.82 ng/mlDDU (0-234) H 02/22/19 05:54 Abnormal lab findings: Abnormal Labs 02/21/19 02/21/19 02/21/19 18:30 18:30 18:30 WBC RBC 3.26 L Hgb 8.8 L Hct 29.0 L MCV MCH 27 L MCHC 30 L RDW 19.1 H Plt Count Lymph % (Auto) 6.1 L Ocean % (Auto) Eos % (Auto) Baso % (Auto) Lymph # 0.4 L Ocean # Eos # Baso # Seg Neutrophils % 86.2 H Seg Neuts % (Manual) Lymphocytes % (Manual) Eosinophils % (Manual) Seg Neutrophils # Lymphocytes # (Manual) Eosinophils # (Manual) PT INR D-Dimer POC ABG pH POC ABG pCO2 POC ABG pO2 ABG pO2 ABG HCO3 ABG Base Excess ABG Hemoglobin Oxyhemoglobin Sodium 133 L Potassium 3.3 L Chloride 93.1 L Carbon Dioxide 33 H BUN Creatinine Glucose 161 H POC Glucose Calcium Phosphorus Magnesium ALT Alkaline Phosphatase 136 H Total Creatine Kinase 37 L CK-MB (CK-2) Rel Index Troponin T 0.192 H* Albumin 2.4 L LDL Cholesterol Direct 36 L PTH Intact Salicylates Acetaminophen Crossmatch 02/21/19 02/21/19 02/21/19 18:42 20:04 20:04 WBC RBC Hgb Hct MCV MCH MCHC RDW Plt Count Lymph % (Auto) Ocean % (Auto) Eos % (Auto) Baso % (Auto) Lymph # Ocean # Eos # Baso # Seg Neutrophils % Seg Neuts % (Manual) Lymphocytes % (Manual) Eosinophils % (Manual) Seg Neutrophils # Lymphocytes # (Manual) Eosinophils # (Manual) PT INR D-Dimer POC ABG pH POC ABG pCO2 56.7 H POC ABG pO2 291 H ABG pO2 ABG HCO3 ABG Base Excess ABG Hemoglobin Oxyhemoglobin Sodium Potassium Chloride Carbon Dioxide BUN Creatinine Glucose POC Glucose Calcium Phosphorus Magnesium ALT Alkaline Phosphatase Total Creatine Kinase CK-MB (CK-2) Rel Index Troponin T Albumin LDL Cholesterol Direct PTH Intact Salicylates < 0.3 L Acetaminophen < 5.0 L Crossmatch 02/21/19 02/22/19 02/22/19 22:35 03:42 03:42 WBC RBC 3.20 L Hgb 8.8 L Hct 27.6 L MCV MCH MCHC RDW 18.9 H Plt Count Lymph % (Auto) 7.4 L Ocean % (Auto) Eos % (Auto) Baso % (Auto) Lymph # 0.7 L [place] # Eos # Baso # Seg Neutrophils % 84.7 H Seg Neuts % (Manual) Lymphocytes % (Manual) Eosinophils % (Manual) Seg Neutrophils # Lymphocytes # (Manual) Eosinophils # (Manual) PT INR D-Dimer POC ABG pH POC ABG pCO2 POC ABG pO2 ABG pO2 ABG HCO3 ABG Base Excess ABG Hemoglobin Oxyhemoglobin Sodium 134 L Potassium 2.6 L* D Chloride Carbon Dioxide BUN Creatinine Glucose POC Glucose Calcium Phosphorus Magnesium ALT Alkaline Phosphatase Total Creatine Kinase CK-MB (CK-2) Rel Index 5.2 H Troponin T 0.202 H* Albumin LDL Cholesterol Direct PTH Intact Salicylates Acetaminophen Crossmatch 02/22/19 02/22/19 02/22/19 03:42 05:54 09:04 WBC RBC Hgb Hct MCV MCH MCHC RDW Plt Count Lymph % (Auto) Ocean % (Auto) Eos % (Auto) Baso % (Auto) Lymph # Ocean # Eos # Baso # Seg Neutrophils % Seg Neuts % (Manual) Lymphocytes % (Manual) Eosinophils % (Manual) Seg Neutrophils # Lymphocytes # (Manual) Eosinophils # (Manual) PT INR D-Dimer 2987.82 H POC ABG pH 7.451 H POC ABG pCO2 POC ABG pO2 ABG pO2 ABG HCO3 ABG Base Excess ABG Hemoglobin Oxyhemoglobin Sodium Potassium Chloride Carbon Dioxide BUN Creatinine Glucose POC Glucose Calcium Phosphorus Magnesium ALT Alkaline Phosphatase Total Creatine Kinase CK-MB (CK-2) Rel Index 5.7 H Troponin T 0.193 H* Albumin LDL Cholesterol Direct PTH Intact Salicylates Acetaminophen Crossmatch 02/22/19 02/22/19 02/23/19 10:36 23:56 00:52 WBC RBC Hgb Hct MCV MCH MCHC RDW Plt Count Lymph % (Auto) Ocean % (Auto) Eos % (Auto) Baso % (Auto) Lymph # Ocean # Eos # Baso # Seg Neutrophils % Seg Neuts % (Manual) Lymphocytes % (Manual) Eosinophils % (Manual) Seg Neutrophils # Lymphocytes # (Manual) Eosinophils # (Manual) PT INR D-Dimer POC ABG pH POC ABG pCO2 POC ABG pO2 ABG pO2 ABG HCO3 ABG Base Excess ABG Hemoglobin Oxyhemoglobin Sodium Potassium 3.1 L Chloride Carbon Dioxide BUN Creatinine Glucose POC Glucose 58 L 111 H Calcium Phosphorus Magnesium ALT Alkaline Phosphatase Total Creatine Kinase CK-MB (CK-2) Rel Index Troponin T Albumin LDL Cholesterol Direct PTH Intact Salicylates Acetaminophen Crossmatch 02/23/19 02/23/19 02/23/19 05:00 06:35 14:26 WBC RBC Hgb Hct MCV MCH MCHC RDW Plt Count Lymph % (Auto) Ocean % (Auto) Eos % (Auto) Baso % (Auto) Lymph # Ocean # Eos # Baso # Seg Neutrophils % Seg Neuts % (Manual) Lymphocytes % (Manual) Eosinophils % (Manual) Seg Neutrophils # Lymphocytes # (Manual) Eosinophils # (Manual) PT INR D-Dimer POC ABG pH POC ABG pCO2 POC ABG pO2 ABG pO2 ABG HCO3 ABG Base Excess ABG Hemoglobin Oxyhemoglobin Sodium 135 L Potassium 3.1 L Chloride Carbon Dioxide BUN 21 H Creatinine 2.0 H Glucose 57 L POC Glucose 64 L 62 L Calcium Phosphorus Magnesium ALT Alkaline Phosphatase Total Creatine Kinase CK-MB (CK-2) Rel Index Troponin T Albumin LDL Cholesterol Direct PTH Intact Salicylates Acetaminophen Crossmatch 02/24/19 02/24/19 02/24/19 02:11 04:12 04:55 WBC RBC 2.84 L Hgb 7.8 L Hct 24.5 L MCV MCH MCHC RDW 19.5 H Plt Count Lymph % (Auto) Ocean % (Auto) Eos % (Auto) Baso % (Auto) Lymph # Ocean # Eos # Baso # Seg Neutrophils % Seg Neuts % (Manual) Lymphocytes % (Manual) Eosinophils % (Manual) Seg Neutrophils # Lymphocytes # (Manual) Eosinophils # (Manual) PT INR D-Dimer POC ABG pH 7.511 H POC ABG pCO2 33.9 L POC ABG pO2 62 L ABG pO2 ABG HCO3 ABG Base Excess ABG Hemoglobin Oxyhemoglobin Sodium Potassium Chloride Carbon Dioxide BUN Creatinine Glucose POC Glucose 69 L Calcium Phosphorus Magnesium ALT Alkaline Phosphatase Total Creatine Kinase CK-MB (CK-2) Rel Index Troponin T Albumin LDL Cholesterol Direct PTH Intact Salicylates Acetaminophen Crossmatch 02/24/19 02/24/19 02/25/19 04:55 05:41 04:45 WBC RBC Hgb Hct MCV MCH MCHC RDW Plt Count Lymph % (Auto) Ocean % (Auto) Eos % (Auto) Baso % (Auto) Lymph # Ocean # Eos # Baso # Seg Neutrophils % Seg Neuts % (Manual) Lymphocytes % (Manual) Eosinophils % (Manual) Seg Neutrophils # Lymphocytes # (Manual) Eosinophils # (Manual) PT INR D-Dimer POC ABG pH 7.466 H POC ABG pCO2 POC ABG pO2 75 L ABG pO2 ABG HCO3 ABG Base Excess ABG Hemoglobin Oxyhemoglobin Sodium Potassium Chloride Carbon Dioxide BUN Creatinine 1.8 H Glucose 73 L POC Glucose 127 H Calcium Phosphorus Magnesium ALT Alkaline Phosphatase Total Creatine Kinase CK-MB (CK-2) Rel Index Troponin T Albumin LDL Cholesterol Direct PTH Intact Salicylates Acetaminophen Crossmatch 02/25/19 02/25/1919 16:34 21:33 03:45 WBC RBC 2.96 L Hgb 8.0 L Hct 25.8 L MCV MCH 27 L MCHC 31 L RDW 20.0 H Plt Count Lymph % (Auto) Ocean % (Auto) Eos % (Auto) Baso % (Auto) Lymph # [place] # Eos # Baso # Seg Neutrophils % Seg Neuts % (Manual) Lymphocytes % (Manual) Eosinophils % (Manual) Seg Neutrophils # Lymphocytes # (Manual) Eosinophils # (Manual) PT INR D-Dimer POC ABG pH POC ABG pCO2 POC ABG pO2 ABG pO2 ABG HCO3 ABG Base Excess ABG Hemoglobin Oxyhemoglobin Sodium Potassium Chloride Carbon Dioxide BUN Creatinine Glucose POC Glucose 141 H 106 H Calcium Phosphorus Magnesium ALT Alkaline Phosphatase Total Creatine Kinase CK-MB (CK-2) Rel Index Troponin T Albumin LDL Cholesterol Direct PTH Intact Salicylates Acetaminophen Crossmatch 02/26/19 02/26/19 02/26/19 03:45 04:13 07:53 WBC RBC Hgb Hct MCV MCH MCHC RDW Plt Count Lymph % (Auto) Ocean % (Auto) Eos % (Auto) Baso % (Auto) Lymph # Ocean # Eos # Baso # Seg Neutrophils % Seg Neuts % (Manual) Lymphocytes % (Manual) Eosinophils % (Manual) Seg Neutrophils # Lymphocytes # (Manual) Eosinophils # (Manual) PT INR D-Dimer POC ABG pH 7.470 H POC ABG pCO2 POC ABG pO2 ABG pO2 ABG HCO3 ABG Base Excess ABG Hemoglobin Oxyhemoglobin Sodium Potassium Chloride Carbon Dioxide BUN Creatinine 1.8 H Glucose POC Glucose 110 H Calcium Phosphorus Magnesium ALT Alkaline Phosphatase Total Creatine Kinase CK-MB (CK-2) Rel Index Troponin T Albumin LDL Cholesterol Direct PTH Intact Salicylates Acetaminophen Crossmatch 02/26/19 02/26/19 02/27/19 11:56 17:43 00:12 WBC RBC Hgb Hct MCV MCH MCHC RDW Plt Count Lymph % (Auto) Ocean % (Auto) Eos % (Auto) Baso % (Auto) Lymph # Ocean # Eos # Baso # Seg Neutrophils % Seg Neuts % (Manual) Lymphocytes % (Manual) Eosinophils % (Manual) Seg Neutrophils # Lymphocytes # (Manual) Eosinophils # (Manual) PT INR D-Dimer POC ABG pH POC ABG pCO2 POC ABG pO2 ABG pO2 ABG HCO3 ABG Base Excess ABG Hemoglobin Oxyhemoglobin Sodium Potassium Chloride Carbon Dioxide BUN Creatinine Glucose POC Glucose 112 H 127 H 127 H Calcium Phosphorus Magnesium ALT Alkaline Phosphatase Total Creatine Kinase CK-MB (CK-2) Rel Index Troponin T Albumin LDL Cholesterol Direct PTH Intact Salicylates Acetaminophen Crossmatch 02/27/19 02/27/19 02/27/19 04:35 13:15 18:02 WBC RBC Hgb Hct MCV MCH MCHC RDW Plt Count Lymph % (Auto) Ocean % (Auto) Eos % (Auto) Baso % (Auto) Lymph # Ocean # Eos # Baso # Seg Neutrophils % Seg Neuts % (Manual) Lymphocytes % (Manual) Eosinophils % (Manual) Seg Neutrophils # Lymphocytes # (Manual) Eosinophils # (Manual) PT INR D-Dimer POC ABG pH 7.483 H POC ABG pCO2 POC ABG pO2 61 L ABG pO2 ABG HCO3 ABG Base Excess ABG Hemoglobin Oxyhemoglobin Sodium Potassium Chloride Carbon Dioxide BUN Creatinine Glucose POC Glucose 143 H 106 H Calcium Phosphorus Magnesium ALT Alkaline Phosphatase Total Creatine Kinase CK-MB (CK-2) Rel Index Troponin T Albumin LDL Cholesterol Direct PTH Intact Salicylates Acetaminophen Crossmatch 02/28/19 02/28/19 02/28/19 05:50 11:59 17:52 WBC RBC Hgb Hct MCV MCH MCHC RDW Plt Count Lymph % (Auto) Ocean % (Auto) Eos % (Auto) Baso % (Auto) Lymph # [place] # Eos # Baso # Seg Neutrophils % Seg Neuts % (Manual) Lymphocytes % (Manual) Eosinophils % (Manual) Seg Neutrophils # Lymphocytes # (Manual) Eosinophils # (Manual) PT INR D-Dimer POC ABG pH POC ABG pCO2 POC ABG pO2 ABG pO2 ABG HCO3 ABG Base Excess ABG Hemoglobin Oxyhemoglobin Sodium Potassium Chloride Carbon Dioxide BUN Creatinine Glucose POC Glucose 134 H 128 H 142 H Calcium Phosphorus Magnesium ALT Alkaline Phosphatase Total Creatine Kinase CK-MB (CK-2) Rel Index Troponin T Albumin LDL Cholesterol Direct PTH Intact Salicylates Acetaminophen Crossmatch 02/28/19 03/01/19 03/01/19 23:13 05:40 09:39 WBC RBC Hgb Hct MCV MCH MCHC RDW Plt Count Lymph % (Auto) Ocean % (Auto) Eos % (Auto) Baso % (Auto) Lymph # Ocean # Eos # Baso # Seg Neutrophils % Seg Neuts % (Manual) Lymphocytes % (Manual) Eosinophils % (Manual) Seg Neutrophils # Lymphocytes # (Manual) Eosinophils # (Manual) PT 16.3 H INR 1.35 H D-Dimer POC ABG pH POC ABG pCO2 POC ABG pO2 ABG pO2 ABG HCO3 ABG Base Excess ABG Hemoglobin Oxyhemoglobin Sodium Potassium Chloride Carbon Dioxide BUN Creatinine Glucose POC Glucose 112 H 111 H Calcium Phosphorus Magnesium ALT Alkaline Phosphatase Total Creatine Kinase CK-MB (CK-2) Rel Index Troponin T Albumin LDL Cholesterol Direct PTH Intact Salicylates Acetaminophen Crossmatch 03/01/19 03/01/19 03/01/19 11:56 13:54 17:59 WBC RBC Hgb Hct MCV MCH MCHC RDW Plt Count Lymph % (Auto) Ocean % (Auto) Eos % (Auto) Baso % (Auto) Lymph # Ocean # Eos # Baso # Seg Neutrophils % Seg Neuts % (Manual) Lymphocytes % (Manual) Eosinophils % (Manual) Seg Neutrophils # Lymphocytes # (Manual) Eosinophils # (Manual) PT INR D-Dimer POC ABG pH POC ABG pCO2 POC ABG pO2 ABG pO2 ABG HCO3 ABG Base Excess ABG Hemoglobin Oxyhemoglobin Sodium Potassium Chloride Carbon Dioxide BUN 33 H Creatinine 2.8 H D Glucose 176 H POC Glucose 199 H 147 H Calcium Phosphorus Magnesium ALT Alkaline Phosphatase Total Creatine Kinase CK-MB (CK-2) Rel Index Troponin T Albumin LDL Cholesterol Direct PTH Intact Salicylates Acetaminophen Crossmatch 03/02/19 03/02/19 03/02/19 05:15 05:15 05:15 WBC RBC 2.73 L Hgb 7.4 L Hct 23.0 L MCV MCH 27 L MCHC RDW 19.9 H Plt Count Lymph % (Auto) Ocean % (Auto) 7.9 H Eos % (Auto) 7.6 H Baso % (Auto) Lymph # 1.0 L Ocean # Eos # 0.5 H Baso # Seg Neutrophils % Seg Neuts % (Manual) Lymphocytes % (Manual) Eosinophils % (Manual) Seg Neutrophils # Lymphocytes # (Manual) Eosinophils # (Manual) PT INR D-Dimer POC ABG pH POC ABG pCO2 POC ABG pO2 ABG pO2 ABG HCO3 ABG Base Excess ABG Hemoglobin Oxyhemoglobin Sodium Potassium Chloride Carbon Dioxide BUN 43 H Creatinine 3.2 H Glucose POC Glucose Calcium Phosphorus 2.30 L Magnesium ALT Alkaline Phosphatase Total Creatine Kinase CK-MB (CK-2) Rel Index Troponin T Albumin LDL Cholesterol Direct PTH Intact 267.6 H Salicylates Acetaminophen Crossmatch 03/02/19 03/02/19 03/03/19 12:32 18:20 13:30 WBC RBC Hgb Hct MCV MCH MCHC RDW Plt Count Lymph % (Auto) Ocean % (Auto) Eos % (Auto) Baso % (Auto) Lymph # [place] # Eos # Baso # Seg Neutrophils % Seg Neuts % (Manual) Lymphocytes % (Manual) Eosinophils % (Manual) Seg Neutrophils # Lymphocytes # (Manual) Eosinophils # (Manual) PT INR D-Dimer POC ABG pH POC ABG pCO2 POC ABG pO2 ABG pO2 ABG HCO3 ABG Base Excess ABG Hemoglobin Oxyhemoglobin Sodium Potassium Chloride 97.3 L Carbon Dioxide BUN 26 H Creatinine 2.2 H Glucose 73 L POC Glucose 111 H 156 H Calcium Phosphorus Magnesium ALT Alkaline Phosphatase Total Creatine Kinase CK-MB (CK-2) Rel Index Troponin T Albumin LDL Cholesterol Direct PTH Intact Salicylates Acetaminophen Crossmatch 03/04/19 03/04/19 03/04/19 00:02 05:37 05:40 WBC RBC 2.63 L Hgb 7.2 L Hct 22.2 L MCV MCH MCHC RDW 20.2 H Plt Count Lymph % (Auto) 10.5 L Ocean % (Auto) Eos % (Auto) 4.6 H Baso % (Auto) Lymph # 0.7 L [place] # Eos # Baso # Seg Neutrophils % 76.9 H Seg Neuts % (Manual) Lymphocytes % (Manual) Eosinophils % (Manual) Seg Neutrophils # Lymphocytes # (Manual) Eosinophils # (Manual) PT INR D-Dimer POC ABG pH POC ABG pCO2 POC ABG pO2 ABG pO2 ABG HCO3 ABG Base Excess ABG Hemoglobin Oxyhemoglobin Sodium Potassium Chloride Carbon Dioxide BUN Creatinine Glucose POC Glucose 136 H 123 H Calcium Phosphorus Magnesium ALT Alkaline Phosphatase Total Creatine Kinase CK-MB (CK-2) Rel Index Troponin T Albumin LDL Cholesterol Direct PTH Intact Salicylates Acetaminophen Crossmatch 03/04/19 03/04/19 03/04/19 05:40 11:39 23:20 WBC RBC Hgb Hct MCV MCH MCHC RDW Plt Count Lymph % (Auto) Ocean % (Auto) Eos % (Auto) Baso % (Auto) Lymph # [place] # Eos # Baso # Seg Neutrophils % Seg Neuts % (Manual) Lymphocytes % (Manual) Eosinophils % (Manual) Seg Neutrophils # Lymphocytes # (Manual) Eosinophils # (Manual) PT INR D-Dimer POC ABG pH POC ABG pCO2 POC ABG pO2 ABG pO2 ABG HCO3 ABG Base Excess ABG Hemoglobin Oxyhemoglobin Sodium Potassium Chloride Carbon Dioxide BUN 34 H Creatinine 2.7 H Glucose 114 H POC Glucose 175 H 151 H Calcium Phosphorus Magnesium ALT Alkaline Phosphatase Total Creatine Kinase CK-MB (CK-2) Rel Index Troponin T Albumin LDL Cholesterol Direct PTH Intact Salicylates Acetaminophen Crossmatch 03/05/19 03/05/19 03/05/19 05:37 12:08 17:11 WBC RBC Hgb Hct MCV MCH MCHC RDW Plt Count Lymph % (Auto) Ocean % (Auto) Eos % (Auto) Baso % (Auto) Lymph # [place] # Eos # Baso # Seg Neutrophils % Seg Neuts % (Manual) Lymphocytes % (Manual) Eosinophils % (Manual) Seg Neutrophils # Lymphocytes # (Manual) Eosinophils # (Manual) PT INR D-Dimer POC ABG pH POC ABG pCO2 POC ABG pO2 ABG pO2 ABG HCO3 ABG Base Excess ABG Hemoglobin Oxyhemoglobin Sodium Potassium Chloride Carbon Dioxide BUN Creatinine Glucose POC Glucose 134 H 135 H 135 H Calcium Phosphorus Magnesium ALT Alkaline Phosphatase Total Creatine Kinase CK-MB (CK-2) Rel Index Troponin T Albumin LDL Cholesterol Direct PTH Intact Salicylates Acetaminophen Crossmatch 03/06/19 03/06/19 03/06/19 00:16 13:05 18:09 WBC RBC Hgb Hct MCV MCH MCHC RDW Plt Count Lymph % (Auto) Ocean % (Auto) Eos % (Auto) Baso % (Auto) Lymph # [place] # Eos # Baso # Seg Neutrophils % Seg Neuts % (Manual) Lymphocytes % (Manual) Eosinophils % (Manual) Seg Neutrophils # Lymphocytes # (Manual) Eosinophils # (Manual) PT INR D-Dimer POC ABG pH POC ABG pCO2 POC ABG pO2 ABG pO2 ABG HCO3 ABG Base Excess ABG Hemoglobin Oxyhemoglobin Sodium Potassium Chloride Carbon Dioxide BUN Creatinine Glucose POC Glucose 117 H 113 H 131 H Calcium Phosphorus Magnesium ALT Alkaline Phosphatase Total Creatine Kinase CK-MB (CK-2) Rel Index Troponin T Albumin LDL Cholesterol Direct PTH Intact Salicylates Acetaminophen Crossmatch 03/07/19 03/08/19 03/08/19 05:25 05:33 16:00 WBC RBC 2.44 L Hgb 6.6 L Hct 20.8 L MCV MCH 27 L MCHC RDW 19.2 H Plt Count Lymph % (Auto) Ocean % (Auto) Eos % (Auto) 8.6 H Baso % (Auto) Lymph # 0.8 L [place] # Eos # 0.5 H Baso # Seg Neutrophils % 70.7 H Seg Neuts % (Manual) Lymphocytes % (Manual) Eosinophils % (Manual) Seg Neutrophils # Lymphocytes # (Manual) Eosinophils # (Manual) PT INR D-Dimer POC ABG pH POC ABG pCO2 POC ABG pO2 ABG pO2 ABG HCO3 ABG Base Excess ABG Hemoglobin Oxyhemoglobin Sodium Potassium Chloride Carbon Dioxide BUN Creatinine Glucose POC Glucose 106 H 108 H Calcium Phosphorus Magnesium ALT Alkaline Phosphatase Total Creatine Kinase CK-MB (CK-2) Rel Index Troponin T Albumin LDL Cholesterol Direct PTH Intact Salicylates Acetaminophen Crossmatch 03/08/19 03/08/19 03/08/19 16:00 18:38 Unknown WBC RBC Hgb Hct MCV MCH MCHC RDW Plt Count Lymph % (Auto) Ocean % (Auto) Eos % (Auto) Baso % (Auto) Lymph # Ocean # Eos # Baso # Seg Neutrophils % Seg Neuts % (Manual) Lymphocytes % (Manual) Eosinophils % (Manual) Seg Neutrophils # Lymphocytes # (Manual) Eosinophils # (Manual) PT INR D-Dimer POC ABG pH POC ABG pCO2 POC ABG pO2 ABG pO2 ABG HCO3 ABG Base Excess ABG Hemoglobin Oxyhemoglobin Sodium Potassium 5.4 H D Chloride Carbon Dioxide BUN 47 H Creatinine 2.6 H Glucose POC Glucose 123 H Calcium Phosphorus Magnesium ALT < 5 L Alkaline Phosphatase Total Creatine Kinase CK-MB (CK-2) Rel Index Troponin T Albumin 2.2 L LDL Cholesterol Direct PTH Intact Salicylates Acetaminophen Crossmatch See Detail 03/09/19 03/09/19 03/09/19 10:48 12:28 13:53 WBC RBC 2.85 L Hgb 7.7 L Hct 24.2 L MCV MCH 27 L MCHC RDW 18.7 H Plt Count Lymph % (Auto) Ocean % (Auto) Eos % (Auto) Baso % (Auto) Lymph # [place] # Eos # Baso # Seg Neutrophils % Seg Neuts % (Manual) Lymphocytes % (Manual) Eosinophils % (Manual) Seg Neutrophils # Lymphocytes # (Manual) Eosinophils # (Manual) PT INR D-Dimer POC ABG pH POC ABG pCO2 POC ABG pO2 ABG pO2 ABG HCO3 30.5 H ABG Base Excess 5.6 H ABG Hemoglobin 8.1 L Oxyhemoglobin 93.8 L Sodium Potassium Chloride Carbon Dioxide BUN Creatinine Glucose POC Glucose 114 H Calcium Phosphorus Magnesium ALT Alkaline Phosphatase Total Creatine Kinase CK-MB (CK-2) Rel Index Troponin T Albumin LDL Cholesterol Direct PTH Intact Salicylates Acetaminophen Crossmatch 03/09/19 03/09/19 03/10/19 17:58 23:53 12:01 WBC RBC Hgb Hct MCV MCH MCHC RDW Plt Count Lymph % (Auto) [place] % (Auto) Eos % (Auto) Baso % (Auto) Lymph # [place] # Eos # Baso # Seg Neutrophils % Seg Neuts % (Manual) Lymphocytes % (Manual) Eosinophils % (Manual) Seg Neutrophils # Lymphocytes # (Manual) Eosinophils # (Manual) PT INR D-Dimer POC ABG pH POC ABG pCO2 POC ABG pO2 ABG pO2 ABG HCO3 ABG Base Excess ABG Hemoglobin Oxyhemoglobin Sodium Potassium Chloride Carbon Dioxide BUN Creatinine Glucose POC Glucose 108 H 128 H 144 H Calcium Phosphorus Magnesium ALT Alkaline Phosphatase Total Creatine Kinase CK-MB (CK-2) Rel Index Troponin T Albumin LDL Cholesterol Direct PTH Intact Salicylates Acetaminophen Crossmatch 03/10/19 03/11/19 03/11/19 16:50 00:24 05:02 WBC RBC Hgb Hct MCV MCH MCHC RDW Plt Count Lymph % (Auto) [place] % (Auto) Eos % (Auto) Baso % (Auto) Lymph # [place] # Eos # Baso # Seg Neutrophils % Seg Neuts % (Manual) Lymphocytes % (Manual) Eosinophils % (Manual) Seg Neutrophils # Lymphocytes # (Manual) Eosinophils # (Manual) PT INR D-Dimer POC ABG pH POC ABG pCO2 POC ABG pO2 ABG pO2 ABG HCO3 ABG Base Excess ABG Hemoglobin Oxyhemoglobin Sodium Potassium Chloride Carbon Dioxide BUN Creatinine Glucose POC Glucose 147 H 123 H 120 H Calcium Phosphorus Magnesium ALT Alkaline Phosphatase Total Creatine Kinase CK-MB (CK-2) Rel Index Troponin T Albumin LDL Cholesterol Direct PTH Intact Salicylates Acetaminophen Crossmatch 03/11/19 03/11/19 03/11/19 11:56 12:20 18:37 WBC RBC Hgb Hct MCV MCH MCHC RDW Plt Count Lymph % (Auto) [place] % (Auto) Eos % (Auto) Baso % (Auto) Lymph # [place] # Eos # Baso # Seg Neutrophils % Seg Neuts % (Manual) Lymphocytes % (Manual) Eosinophils % (Manual) Seg Neutrophils # Lymphocytes # (Manual) Eosinophils # (Manual) PT INR D-Dimer POC ABG pH POC ABG pCO2 POC ABG pO2 ABG pO2 ABG HCO3 ABG Base Excess ABG Hemoglobin Oxyhemoglobin Sodium Potassium 5.2 H Chloride Carbon Dioxide BUN Creatinine Glucose POC Glucose 123 H 125 H Calcium Phosphorus Magnesium ALT Alkaline Phosphatase Total Creatine Kinase CK-MB (CK-2) Rel Index Troponin T Albumin LDL Cholesterol Direct PTH Intact Salicylates Acetaminophen Crossmatch 03/11/19 03/12/19 03/12/19 22:52 12:04 18:25 WBC RBC Hgb Hct MCV MCH MCHC RDW Plt Count Lymph % (Auto) Ocean % (Auto) Eos % (Auto) Baso % (Auto) Lymph # Ocean # Eos # Baso # Seg Neutrophils % Seg Neuts % (Manual) Lymphocytes % (Manual) Eosinophils % (Manual) Seg Neutrophils # Lymphocytes # (Manual) Eosinophils # (Manual) PT INR D-Dimer POC ABG pH POC ABG pCO2 POC ABG pO2 ABG pO2 ABG HCO3 ABG Base Excess ABG Hemoglobin Oxyhemoglobin Sodium Potassium Chloride Carbon Dioxide BUN Creatinine Glucose POC Glucose 110 H 106 H 118 H Calcium Phosphorus Magnesium ALT Alkaline Phosphatase Total Creatine Kinase CK-MB (CK-2) Rel Index Troponin T Albumin LDL Cholesterol Direct PTH Intact Salicylates Acetaminophen Crossmatch 03/12/19 03/13/19 03/13/19 23:36 04:38 04:38 WBC RBC 2.95 L Hgb 7.9 L Hct 24.9 L MCV MCH 27 L MCHC RDW 19.9 H Plt Count Lymph % (Auto) 11.1 L Ocean % (Auto) 8.1 H Eos % (Auto) 4.4 H Baso % (Auto) Lymph # 0.9 L Ocean # Eos # Baso # Seg Neutrophils % 75.4 H Seg Neuts % (Manual) Lymphocytes % (Manual) Eosinophils % (Manual) Seg Neutrophils # Lymphocytes # (Manual) Eosinophils # (Manual) PT INR D-Dimer POC ABG pH POC ABG pCO2 POC ABG pO2 ABG pO2 ABG HCO3 ABG Base Excess ABG Hemoglobin Oxyhemoglobin Sodium 136 L Potassium 5.1 H Chloride 93.8 L Carbon Dioxide BUN 48 H Creatinine 2.7 H Glucose 102 H POC Glucose 115 H Calcium Phosphorus Magnesium ALT < 5 L Alkaline Phosphatase 143 H Total Creatine Kinase CK-MB (CK-2) Rel Index Troponin T Albumin 2.5 L LDL Cholesterol Direct PTH Intact Salicylates Acetaminophen Crossmatch 03/13/19 03/13/19 03/13/19 05:33 13:37 18:03 WBC RBC Hgb Hct MCV MCH MCHC RDW Plt Count Lymph % (Auto) Ocean % (Auto) Eos % (Auto) Baso % (Auto) Lymph # [place] # Eos # Baso # Seg Neutrophils % Seg Neuts % (Manual) Lymphocytes % (Manual) Eosinophils % (Manual) Seg Neutrophils # Lymphocytes # (Manual) Eosinophils # (Manual) PT INR D-Dimer POC ABG pH POC ABG pCO2 POC ABG pO2 ABG pO2 ABG HCO3 ABG Base Excess ABG Hemoglobin Oxyhemoglobin Sodium Potassium Chloride Carbon Dioxide BUN Creatinine Glucose POC Glucose 140 H 150 H 158 H Calcium Phosphorus Magnesium ALT Alkaline Phosphatase Total Creatine Kinase CK-MB (CK-2) Rel Index Troponin T Albumin LDL Cholesterol Direct PTH Intact Salicylates Acetaminophen Crossmatch 03/13/19 03/14/19 03/14/19 23:32 05:24 12:20 WBC RBC Hgb Hct MCV MCH MCHC RDW Plt Count Lymph % (Auto) Ocean % (Auto) Eos % (Auto) Baso % (Auto) Lymph # [place] # Eos # Baso # Seg Neutrophils % Seg Neuts % (Manual) Lymphocytes % (Manual) Eosinophils % (Manual) Seg Neutrophils # Lymphocytes # (Manual) Eosinophils # (Manual) PT INR D-Dimer POC ABG pH POC ABG pCO2 POC ABG pO2 ABG pO2 ABG HCO3 ABG Base Excess ABG Hemoglobin Oxyhemoglobin Sodium Potassium Chloride Carbon Dioxide BUN Creatinine Glucose POC Glucose 162 H 146 H 127 H Calcium Phosphorus Magnesium ALT Alkaline Phosphatase Total Creatine Kinase CK-MB (CK-2) Rel Index Troponin T Albumin LDL Cholesterol Direct PTH Intact Salicylates Acetaminophen Crossmatch 03/14/19 03/14/19 03/15/19 18:05 23:57 04:38 WBC 12.8 H RBC 3.11 L Hgb 8.1 L Hct 26.5 L MCV MCH 26 L MCHC 31 L RDW 19.7 H Plt Count Lymph % (Auto) 4.4 L [place] % (Auto) 7.4 H Eos % (Auto) Baso % (Auto) Lymph # 0.6 L [place] # 0.9 H Eos # Baso # Seg Neutrophils % 87.3 H Seg Neuts % (Manual) Lymphocytes % (Manual) Eosinophils % (Manual) Seg Neutrophils # 11.2 H Lymphocytes # (Manual) Eosinophils # (Manual) PT INR D-Dimer POC ABG pH POC ABG pCO2 POC ABG pO2 ABG pO2 ABG HCO3 ABG Base Excess ABG Hemoglobin Oxyhemoglobin Sodium Potassium Chloride Carbon Dioxide BUN Creatinine Glucose POC Glucose 142 H 155 H Calcium Phosphorus Magnesium ALT Alkaline Phosphatase Total Creatine Kinase CK-MB (CK-2) Rel Index Troponin T Albumin LDL Cholesterol Direct PTH Intact Salicylates Acetaminophen Crossmatch 03/15/19 03/15/19 03/15/19 04:38 05:31 11:32 WBC RBC Hgb Hct MCV MCH MCHC RDW Plt Count Lymph % (Auto) [place] % (Auto) Eos % (Auto) Baso % (Auto) Lymph # [place] # Eos # Baso # Seg Neutrophils % Seg Neuts % (Manual) Lymphocytes % (Manual) Eosinophils % (Manual) Seg Neutrophils # Lymphocytes # (Manual) Eosinophils # (Manual) PT INR D-Dimer POC ABG pH POC ABG pCO2 POC ABG pO2 ABG pO2 ABG HCO3 ABG Base Excess ABG Hemoglobin Oxyhemoglobin Sodium 135 L Potassium Chloride 91.9 L Carbon Dioxide BUN 54 H Creatinine 2.8 H Glucose 128 H POC Glucose 160 H 109 H Calcium 11.1 H Phosphorus Magnesium ALT Alkaline Phosphatase 161 H Total Creatine Kinase CK-MB (CK-2) Rel Index Troponin T Albumin 2.3 L LDL Cholesterol Direct PTH Intact Salicylates Acetaminophen Crossmatch 03/15/19 03/15/19 03/16/19 18:15 23:41 05:40 WBC RBC Hgb Hct MCV MCH MCHC RDW Plt Count Lymph % (Auto) [place] % (Auto) Eos % (Auto) Baso % (Auto) Lymph # [place] # Eos # Baso # Seg Neutrophils % Seg Neuts % (Manual) Lymphocytes % (Manual) Eosinophils % (Manual) Seg Neutrophils # Lymphocytes # (Manual) Eosinophils # (Manual) PT INR D-Dimer POC ABG pH POC ABG pCO2 POC ABG pO2 ABG pO2 ABG HCO3 ABG Base Excess ABG Hemoglobin Oxyhemoglobin Sodium Potassium Chloride Carbon Dioxide BUN Creatinine Glucose POC Glucose 151 H 110 H 163 H Calcium Phosphorus Magnesium ALT Alkaline Phosphatase Total Creatine Kinase CK-MB (CK-2) Rel Index Troponin T Albumin LDL Cholesterol Direct PTH Intact Salicylates Acetaminophen Crossmatch 03/16/19 03/16/19 03/16/19 11:55 17:04 23:58 WBC RBC Hgb Hct MCV MCH MCHC RDW Plt Count Lymph % (Auto) [place] % (Auto) Eos % (Auto) Baso % (Auto) Lymph # [place] # Eos # Baso # Seg Neutrophils % Seg Neuts % (Manual) Lymphocytes % (Manual) Eosinophils % (Manual) Seg Neutrophils # Lymphocytes # (Manual) Eosinophils # (Manual) PT INR D-Dimer POC ABG pH POC ABG pCO2 POC ABG pO2 ABG pO2 ABG HCO3 ABG Base Excess ABG Hemoglobin Oxyhemoglobin Sodium Potassium Chloride Carbon Dioxide BUN Creatinine Glucose POC Glucose 114 H 147 H 192 H Calcium Phosphorus Magnesium ALT Alkaline Phosphatase Total Creatine Kinase CK-MB (CK-2) Rel Index Troponin T Albumin LDL Cholesterol Direct PTH Intact Salicylates Acetaminophen Crossmatch 03/17/19 03/17/19 03/17/19 05:53 11:17 17:01 WBC RBC Hgb Hct MCV MCH MCHC RDW Plt Count Lymph % (Auto) [place] % (Auto) Eos % (Auto) Baso % (Auto) Lymph # [place] # Eos # Baso # Seg Neutrophils % Seg Neuts % (Manual) Lymphocytes % (Manual) Eosinophils % (Manual) Seg Neutrophils # Lymphocytes # (Manual) Eosinophils # (Manual) PT INR D-Dimer POC ABG pH POC ABG pCO2 POC ABG pO2 ABG pO2 ABG HCO3 ABG Base Excess ABG Hemoglobin Oxyhemoglobin Sodium Potassium Chloride Carbon Dioxide BUN Creatinine Glucose POC Glucose 151 H 161 H 152 H Calcium Phosphorus Magnesium ALT Alkaline Phosphatase Total Creatine Kinase CK-MB (CK-2) Rel Index Troponin T Albumin LDL Cholesterol Direct PTH Intact Salicylates Acetaminophen Crossmatch 03/17/19 03/18/19 03/18/19 21:47 04:15 04:44 WBC RBC Hgb Hct MCV MCH MCHC RDW Plt Count Lymph % (Auto) [place] % (Auto) Eos % (Auto) Baso % (Auto) Lymph # [place] # Eos # Baso # Seg Neutrophils % Seg Neuts % (Manual) Lymphocytes % (Manual) Eosinophils % (Manual) Seg Neutrophils # Lymphocytes # (Manual) Eosinophils # (Manual) PT INR D-Dimer POC ABG pH POC ABG pCO2 POC ABG pO2 ABG pO2 102.8 H ABG HCO3 28.3 H ABG Base Excess ABG Hemoglobin 10.4 L Oxyhemoglobin 94.5 L Sodium Potassium Chloride Carbon Dioxide BUN Creatinine Glucose POC Glucose 170 H 150 H Calcium Phosphorus Magnesium ALT Alkaline Phosphatase Total Creatine Kinase CK-MB (CK-2) Rel Index Troponin T Albumin LDL Cholesterol Direct PTH Intact Salicylates Acetaminophen Crossmatch 03/18/19 03/18/19 03/18/19 06:38 12:12 17:47 WBC RBC Hgb Hct MCV MCH MCHC RDW Plt Count Lymph % (Auto) [place] % (Auto) Eos % (Auto) Baso % (Auto) Lymph # [place] # Eos # Baso # Seg Neutrophils % Seg Neuts % (Manual) Lymphocytes % (Manual) Eosinophils % (Manual) Seg Neutrophils # Lymphocytes # (Manual) Eosinophils # (Manual) PT INR D-Dimer POC ABG pH 7.510 H POC ABG pCO2 POC ABG pO2 164 H ABG pO2 ABG HCO3 ABG Base Excess ABG Hemoglobin Oxyhemoglobin Sodium Potassium Chloride Carbon Dioxide BUN Creatinine Glucose POC Glucose 145 H 149 H Calcium Phosphorus Magnesium ALT Alkaline Phosphatase Total Creatine Kinase CK-MB (CK-2) Rel Index Troponin T Albumin LDL Cholesterol Direct PTH Intact Salicylates Acetaminophen Crossmatch 03/18/19 03/19/19 03/19/19 23:25 01:11 04:23 WBC 15.6 H RBC 2.51 L Hgb 6.5 L Hct 21.6 L MCV MCH 26 L MCHC 30 L RDW 19.8 H Plt Count Lymph % (Auto) 6.0 L [place] % (Auto) Eos % (Auto) Baso % (Auto) Lymph # 0.9 L [place] # 1.0 H Eos # Baso # Seg Neutrophils % 85.5 H Seg Neuts % (Manual) Lymphocytes % (Manual) Eosinophils % (Manual) Seg Neutrophils # 13.4 H Lymphocytes # (Manual) Eosinophils # (Manual) PT INR D-Dimer POC ABG pH POC ABG pCO2 POC ABG pO2 ABG pO2 78.3 L ABG HCO3 30.7 H ABG Base Excess 5.8 H ABG Hemoglobin 5.8 L Oxyhemoglobin 94.6 L Sodium Potassium Chloride Carbon Dioxide BUN Creatinine Glucose POC Glucose 190 H Calcium Phosphorus Magnesium ALT Alkaline Phosphatase Total Creatine Kinase CK-MB (CK-2) Rel Index Troponin T Albumin LDL Cholesterol Direct PTH Intact Salicylates Acetaminophen Crossmatch 03/19/19 03/19/19 03/19/19 05:22 05:35 08:54 WBC RBC Hgb Hct MCV MCH MCHC RDW Plt Count Lymph % (Auto) [place] % (Auto) Eos % (Auto) Baso % (Auto) Lymph # [place] # Eos # Baso # Seg Neutrophils % Seg Neuts % (Manual) Lymphocytes % (Manual) Eosinophils % (Manual) Seg Neutrophils # Lymphocytes # (Manual) Eosinophils # (Manual) PT INR D-Dimer POC ABG pH POC ABG pCO2 POC ABG pO2 ABG pO2 ABG HCO3 ABG Base Excess ABG Hemoglobin Oxyhemoglobin Sodium Potassium Chloride Carbon Dioxide BUN Creatinine Glucose POC Glucose 167 H Calcium Phosphorus Magnesium ALT Alkaline Phosphatase Total Creatine Kinase CK-MB (CK-2) Rel Index Troponin T Albumin LDL Cholesterol Direct PTH Intact Salicylates Acetaminophen Crossmatch See Detail See Detail 03/19/19 03/19/19 03/19/19 12:36 17:02 23:25 WBC RBC Hgb Hct MCV MCH MCHC RDW Plt Count Lymph % (Auto) [place] % (Auto) Eos % (Auto) Baso % (Auto) Lymph # [place] # Eos # Baso # Seg Neutrophils % Seg Neuts % (Manual) Lymphocytes % (Manual) Eosinophils % (Manual) Seg Neutrophils # Lymphocytes # (Manual) Eosinophils # (Manual) PT INR D-Dimer POC ABG pH POC ABG pCO2 POC ABG pO2 ABG pO2 ABG HCO3 ABG Base Excess ABG Hemoglobin Oxyhemoglobin Sodium Potassium Chloride Carbon Dioxide BUN Creatinine Glucose POC Glucose 167 H 135 H 136 H Calcium Phosphorus Magnesium ALT Alkaline Phosphatase Total Creatine Kinase CK-MB (CK-2) Rel Index Troponin T Albumin LDL Cholesterol Direct PTH Intact Salicylates Acetaminophen Crossmatch 03/20/19 03/20/19 03/20/19 05:38 08:40 08:40 WBC RBC 2.61 L Hgb 7.1 L Hct 22.0 L MCV MCH 27 L MCHC RDW 19.6 H Plt Count Lymph % (Auto) 8.2 L [place] % (Auto) 8.3 H Eos % (Auto) 5.7 H Baso % (Auto) Lymph # 0.8 L [place] # Eos # 0.5 H Baso # Seg Neutrophils % 77.3 H Seg Neuts % (Manual) Lymphocytes % (Manual) Eosinophils % (Manual) Seg Neutrophils # Lymphocytes # (Manual) Eosinophils # (Manual) PT INR D-Dimer POC ABG pH POC ABG pCO2 POC ABG pO2 ABG pO2 ABG HCO3 ABG Base Excess ABG Hemoglobin Oxyhemoglobin Sodium Potassium Chloride 95.9 L Carbon Dioxide BUN 69 H Creatinine 2.8 H Glucose 115 H POC Glucose 134 H Calcium 10.5 H Phosphorus Magnesium ALT Alkaline Phosphatase Total Creatine Kinase CK-MB (CK-2) Rel Index Troponin T Albumin LDL Cholesterol Direct PTH Intact Salicylates Acetaminophen Crossmatch 03/20/19 03/20/19 03/20/19 12:13 18:04 23:49 WBC RBC Hgb Hct MCV MCH MCHC RDW Plt Count Lymph % (Auto) [place] % (Auto) Eos % (Auto) Baso % (Auto) Lymph # [place] # Eos # Baso # Seg Neutrophils % Seg Neuts % (Manual) Lymphocytes % (Manual) Eosinophils % (Manual) Seg Neutrophils # Lymphocytes # (Manual) Eosinophils # (Manual) PT INR D-Dimer POC ABG pH POC ABG pCO2 POC ABG pO2 ABG pO2 ABG HCO3 ABG Base Excess ABG Hemoglobin Oxyhemoglobin Sodium Potassium Chloride Carbon Dioxide BUN Creatinine Glucose POC Glucose 144 H 165 H 172 H Calcium Phosphorus Magnesium ALT Alkaline Phosphatase Total Creatine Kinase CK-MB (CK-2) Rel Index Troponin T Albumin LDL Cholesterol Direct PTH Intact Salicylates Acetaminophen Crossmatch 03/21/19 03/21/19 03/21/19 05:00 06:29 06:30 WBC RBC 2.72 L Hgb 7.4 L Hct 22.9 L MCV MCH 27 L MCHC RDW 19.4 H Plt Count Lymph % (Auto) [place] % (Auto) Eos % (Auto) Baso % (Auto) Lymph # [place] # Eos # Baso # Seg Neutrophils % Seg Neuts % (Manual) 81.0 H Lymphocytes % (Manual) 8.0 L Eosinophils % (Manual) 8.0 H Seg Neutrophils # Lymphocytes # (Manual) 0.7 L Eosinophils # (Manual) 0.7 H PT INR D-Dimer POC ABG pH POC ABG pCO2 POC ABG pO2 ABG pO2 ABG HCO3 ABG Base Excess ABG Hemoglobin Oxyhemoglobin Sodium Potassium Chloride Carbon Dioxide 33 H BUN 43 H Creatinine 1.7 H Glucose 145 H POC Glucose 156 H Calcium Phosphorus Magnesium ALT Alkaline Phosphatase 212 H Total Creatine Kinase CK-MB (CK-2) Rel Index Troponin T Albumin 2.2 L LDL Cholesterol Direct PTH Intact Salicylates Acetaminophen Crossmatch 03/21/19 03/21/19 03/22/19 12:02 18:07 00:21 WBC RBC Hgb Hct MCV MCH MCHC RDW Plt Count Lymph % (Auto) [place] % (Auto) Eos % (Auto) Baso % (Auto) Lymph # [place] # Eos # Baso # Seg Neutrophils % Seg Neuts % (Manual) Lymphocytes % (Manual) Eosinophils % (Manual) Seg Neutrophils # Lymphocytes # (Manual) Eosinophils # (Manual) PT INR D-Dimer POC ABG pH POC ABG pCO2 POC ABG pO2 ABG pO2 ABG HCO3 ABG Base Excess ABG Hemoglobin Oxyhemoglobin Sodium Potassium Chloride Carbon Dioxide BUN Creatinine Glucose POC Glucose 163 H 144 H 153 H Calcium Phosphorus Magnesium ALT Alkaline Phosphatase Total Creatine Kinase CK-MB (CK-2) Rel Index Troponin T Albumin LDL Cholesterol Direct PTH Intact Salicylates Acetaminophen Crossmatch 03/22/19 03/22/19 03/22/19 05:23 05:23 05:31 WBC RBC 2.58 L Hgb 7.1 L Hct 21.8 L MCV MCH 27 L MCHC RDW 19.2 H Plt Count Lymph % (Auto) [place] % (Auto) Eos % (Auto) Baso % (Auto) Lymph # [place] # Eos # Baso # Seg Neutrophils % Seg Neuts % (Manual) Lymphocytes % (Manual) Eosinophils % (Manual) Seg Neutrophils # Lymphocytes # (Manual) Eosinophils # (Manual) PT INR D-Dimer POC ABG pH POC ABG pCO2 POC ABG pO2 ABG pO2 ABG HCO3 ABG Base Excess ABG Hemoglobin Oxyhemoglobin Sodium 147 H Potassium Chloride Carbon Dioxide BUN 68 H Creatinine 2.5 H Glucose POC Glucose 116 H Calcium 10.3 H Phosphorus Magnesium ALT Alkaline Phosphatase Total Creatine Kinase CK-MB (CK-2) Rel Index Troponin T Albumin LDL Cholesterol Direct PTH Intact Salicylates Acetaminophen Crossmatch 03/22/19 03/22/19 03/22/19 08:48 12:37 17:35 WBC RBC Hgb Hct MCV MCH MCHC RDW Plt Count Lymph % (Auto) [place] % (Auto) Eos % (Auto) Baso % (Auto) Lymph # [place] # Eos # Baso # Seg Neutrophils % Seg Neuts % (Manual) Lymphocytes % (Manual) Eosinophils % (Manual) Seg Neutrophils # Lymphocytes # (Manual) Eosinophils # (Manual) PT INR D-Dimer POC ABG pH POC ABG pCO2 POC ABG pO2 ABG pO2 ABG HCO3 ABG Base Excess ABG Hemoglobin Oxyhemoglobin Sodium Potassium Chloride Carbon Dioxide BUN Creatinine Glucose POC Glucose 143 H 155 H Calcium Phosphorus Magnesium ALT Alkaline Phosphatase Total Creatine Kinase CK-MB (CK-2) Rel Index Troponin T Albumin LDL Cholesterol Direct PTH Intact Salicylates Acetaminophen Crossmatch See Detail 03/23/19 03/23/19 03/23/19 00:07 04:00 04:00 WBC 11.2 H RBC 2.32 L Hgb 6.4 L Hct 19.7 L* MCV MCH MCHC RDW 19.4 H Plt Count Lymph % (Auto) [place] % (Auto) Eos % (Auto) Baso % (Auto) Lymph # [place] # Eos # Baso # Seg Neutrophils % Seg Neuts % (Manual) Lymphocytes % (Manual) Eosinophils % (Manual) Seg Neutrophils # Lymphocytes # (Manual) Eosinophils # (Manual) PT INR D-Dimer POC ABG pH POC ABG pCO2 POC ABG pO2 ABG pO2 ABG HCO3 ABG Base Excess ABG Hemoglobin Oxyhemoglobin Sodium 147 H Potassium 5.2 H Chloride Carbon Dioxide BUN 86 H Creatinine 3.2 H Glucose 128 H POC Glucose 135 H Calcium 10.3 H Phosphorus Magnesium ALT Alkaline Phosphatase Total Creatine Kinase CK-MB (CK-2) Rel Index Troponin T Albumin LDL Cholesterol Direct PTH Intact Salicylates Acetaminophen Crossmatch 03/23/19 03/23/19 03/23/19 05:21 11:36 11:36 WBC RBC Hgb 7.9 L Hct 25.0 L MCV MCH MCHC RDW Plt Count Lymph % (Auto) [place] % (Auto) Eos % (Auto) Baso % (Auto) Lymph # [place] # Eos # Baso # Seg Neutrophils % Seg Neuts % (Manual) Lymphocytes % (Manual) Eosinophils % (Manual) Seg Neutrophils # Lymphocytes # (Manual) Eosinophils # (Manual) PT INR D-Dimer POC ABG pH POC ABG pCO2 POC ABG pO2 ABG pO2 ABG HCO3 ABG Base Excess ABG Hemoglobin Oxyhemoglobin Sodium Potassium Chloride Carbon Dioxide BUN Creatinine Glucose POC Glucose 132 H 147 H Calcium Phosphorus Magnesium ALT Alkaline Phosphatase Total Creatine Kinase CK-MB (CK-2) Rel Index Troponin T Albumin LDL Cholesterol Direct PTH Intact Salicylates Acetaminophen Crossmatch 03/23/19 03/24/19 03/24/19 17:31 01:22 04:20 WBC 12.2 H RBC 3.05 L Hgb 8.3 L Hct 25.9 L MCV MCH 27 L MCHC RDW 18.7 H Plt Count Lymph % (Auto) [place] % (Auto) Eos % (Auto) Baso % (Auto) Lymph # [place] # Eos # Baso # Seg Neutrophils % Seg Neuts % (Manual) Lymphocytes % (Manual) Eosinophils % (Manual) Seg Neutrophils # Lymphocytes # (Manual) Eosinophils # (Manual) PT INR D-Dimer POC ABG pH POC ABG pCO2 POC ABG pO2 ABG pO2 ABG HCO3 ABG Base Excess ABG Hemoglobin Oxyhemoglobin Sodium Potassium Chloride Carbon Dioxide BUN Creatinine Glucose POC Glucose 182 H 113 H Calcium Phosphorus Magnesium ALT Alkaline Phosphatase Total Creatine Kinase CK-MB (CK-2) Rel Index Troponin T Albumin LDL Cholesterol Direct PTH Intact Salicylates Acetaminophen Crossmatch 03/24/19 03/24/19 03/24/19 04:20 11:59 18:14 WBC RBC Hgb Hct MCV MCH MCHC RDW Plt Count Lymph % (Auto) [place] % (Auto) Eos % (Auto) Baso % (Auto) Lymph # [place] # Eos # Baso # Seg Neutrophils % Seg Neuts % (Manual) Lymphocytes % (Manual) Eosinophils % (Manual) Seg Neutrophils # Lymphocytes # (Manual) Eosinophils # (Manual) PT INR D-Dimer POC ABG pH POC ABG pCO2 POC ABG pO2 ABG pO2 ABG HCO3 ABG Base Excess ABG Hemoglobin Oxyhemoglobin Sodium Potassium Chloride 94.8 L Carbon Dioxide 32 H BUN 53 H Creatinine 2.3 H Glucose POC Glucose 163 H 134 H Calcium Phosphorus Magnesium ALT Alkaline Phosphatase Total Creatine Kinase CK-MB (CK-2) Rel Index Troponin T Albumin LDL Cholesterol Direct PTH Intact Salicylates Acetaminophen Crossmatch 03/24/19 03/25/19 03/25/19 23:15 05:52 12:02 WBC RBC Hgb Hct MCV MCH MCHC RDW Plt Count Lymph % (Auto) [place] % (Auto) Eos % (Auto) Baso % (Auto) Lymph # [place] # Eos # Baso # Seg Neutrophils % Seg Neuts % (Manual) Lymphocytes % (Manual) Eosinophils % (Manual) Seg Neutrophils # Lymphocytes # (Manual) Eosinophils # (Manual) PT INR D-Dimer POC ABG pH POC ABG pCO2 POC ABG pO2 ABG pO2 ABG HCO3 ABG Base Excess ABG Hemoglobin Oxyhemoglobin Sodium Potassium Chloride Carbon Dioxide BUN Creatinine Glucose POC Glucose 129 H 123 H 125 H Calcium Phosphorus Magnesium ALT Alkaline Phosphatase Total Creatine Kinase CK-MB (CK-2) Rel Index Troponin T Albumin LDL Cholesterol Direct PTH Intact Salicylates Acetaminophen Crossmatch 03/25/19 03/26/19 03/26/19 17:27 00:30 05:35 WBC RBC 3.01 L Hgb 8.1 L Hct 25.7 L MCV MCH 27 L MCHC RDW 19.2 H Plt Count Lymph % (Auto) 11.4 L [place] % (Auto) Eos % (Auto) 8.0 H Baso % (Auto) Lymph # 1.0 L [place] # Eos # 0.7 H Baso # Seg Neutrophils % 73.9 H Seg Neuts % (Manual) Lymphocytes % (Manual) Eosinophils % (Manual) Seg Neutrophils # Lymphocytes # (Manual) Eosinophils # (Manual) PT INR D-Dimer POC ABG pH POC ABG pCO2 POC ABG pO2 ABG pO2 ABG HCO3 ABG Base Excess ABG Hemoglobin Oxyhemoglobin Sodium Potassium Chloride Carbon Dioxide BUN Creatinine Glucose POC Glucose 130 H 129 H Calcium Phosphorus Magnesium ALT Alkaline Phosphatase Total Creatine Kinase CK-MB (CK-2) Rel Index Troponin T Albumin LDL Cholesterol Direct PTH Intact Salicylates Acetaminophen Crossmatch 03/26/19 03/26/19 03/26/19 05:35 05:45 12:16 WBC RBC Hgb Hct MCV MCH MCHC RDW Plt Count Lymph % (Auto) [place] % (Auto) Eos % (Auto) Baso % (Auto) Lymph # [place] # Eos # Baso # Seg Neutrophils % Seg Neuts % (Manual) Lymphocytes % (Manual) Eosinophils % (Manual) Seg Neutrophils # Lymphocytes # (Manual) Eosinophils # (Manual) PT INR D-Dimer POC ABG pH POC ABG pCO2 POC ABG pO2 ABG pO2 ABG HCO3 ABG Base Excess ABG Hemoglobin Oxyhemoglobin Sodium Potassium Chloride 94.9 L Carbon Dioxide 31 H BUN 44 H Creatinine 2.0 H Glucose POC Glucose 118 H 107 H Calcium Phosphorus Magnesium ALT Alkaline Phosphatase Total Creatine Kinase CK-MB (CK-2) Rel Index Troponin T Albumin LDL Cholesterol Direct PTH Intact Salicylates Acetaminophen Crossmatch 03/26/19 03/27/19 03/27/19 17:56 00:36 05:37 WBC RBC Hgb Hct MCV MCH MCHC RDW Plt Count Lymph % (Auto) [place] % (Auto) Eos % (Auto) Baso % (Auto) Lymph # [place] # Eos # Baso # Seg Neutrophils % Seg Neuts % (Manual) Lymphocytes % (Manual) Eosinophils % (Manual) Seg Neutrophils # Lymphocytes # (Manual) Eosinophils # (Manual) PT INR D-Dimer POC ABG pH POC ABG pCO2 POC ABG pO2 ABG pO2 ABG HCO3 ABG Base Excess ABG Hemoglobin Oxyhemoglobin Sodium Potassium Chloride Carbon Dioxide BUN Creatinine Glucose POC Glucose 107 H 110 H 122 H Calcium Phosphorus Magnesium ALT Alkaline Phosphatase Total Creatine Kinase CK-MB (CK-2) Rel Index Troponin T Albumin LDL Cholesterol Direct PTH Intact Salicylates Acetaminophen Crossmatch 03/27/19 03/27/19 03/28/19 11:22 18:00 05:17 WBC RBC Hgb Hct MCV MCH MCHC RDW Plt Count Lymph % (Auto) [place] % (Auto) Eos % (Auto) Baso % (Auto) Lymph # [place] # Eos # Baso # Seg Neutrophils % Seg Neuts % (Manual) Lymphocytes % (Manual) Eosinophils % (Manual) Seg Neutrophils # Lymphocytes # (Manual) Eosinophils # (Manual) PT INR D-Dimer POC ABG pH POC ABG pCO2 POC ABG pO2 ABG pO2 ABG HCO3 ABG Base Excess ABG Hemoglobin Oxyhemoglobin Sodium Potassium Chloride Carbon Dioxide BUN Creatinine Glucose POC Glucose 120 H 111 H 107 H Calcium Phosphorus Magnesium ALT Alkaline Phosphatase Total Creatine Kinase CK-MB (CK-2) Rel Index Troponin T Albumin LDL Cholesterol Direct PTH Intact Salicylates Acetaminophen Crossmatch 03/28/19 03/28/19 03/29/19 12:27 18:08 05:47 WBC RBC Hgb Hct MCV MCH MCHC RDW Plt Count Lymph % (Auto) [place] % (Auto) Eos % (Auto) Baso % (Auto) Lymph # [place] # Eos # Baso # Seg Neutrophils % Seg Neuts % (Manual) Lymphocytes % (Manual) Eosinophils % (Manual) Seg Neutrophils # Lymphocytes # (Manual) Eosinophils # (Manual) PT INR D-Dimer POC ABG pH POC ABG pCO2 POC ABG pO2 ABG pO2 ABG HCO3 ABG Base Excess ABG Hemoglobin Oxyhemoglobin Sodium Potassium Chloride Carbon Dioxide BUN Creatinine Glucose POC Glucose 114 H 121 H 112 H Calcium Phosphorus Magnesium ALT Alkaline Phosphatase Total Creatine Kinase CK-MB (CK-2) Rel Index Troponin T Albumin LDL Cholesterol Direct PTH Intact Salicylates Acetaminophen Crossmatch 03/29/19 03/29/19 03/30/19 12:14 18:08 00:31 WBC RBC Hgb Hct MCV MCH MCHC RDW Plt Count Lymph % (Auto) [place] % (Auto) Eos % (Auto) Baso % (Auto) Lymph # [place] # Eos # Baso # Seg Neutrophils % Seg Neuts % (Manual) Lymphocytes % (Manual) Eosinophils % (Manual) Seg Neutrophils # Lymphocytes # (Manual) Eosinophils # (Manual) PT INR D-Dimer POC ABG pH POC ABG pCO2 POC ABG pO2 ABG pO2 ABG HCO3 ABG Base Excess ABG Hemoglobin Oxyhemoglobin Sodium Potassium Chloride Carbon Dioxide BUN Creatinine Glucose POC Glucose 117 H 140 H 114 H Calcium Phosphorus Magnesium ALT Alkaline Phosphatase Total Creatine Kinase CK-MB (CK-2) Rel Index Troponin T Albumin LDL Cholesterol Direct PTH Intact Salicylates Acetaminophen Crossmatch 03/30/19 03/30/19 03/30/19 10:13 10:13 23:53 WBC RBC 2.81 L Hgb 7.7 L Hct 24.3 L MCV MCH 27 L MCHC RDW 19.0 H Plt Count Lymph % (Auto) 12.2 L [place] % (Auto) Eos % (Auto) 7.9 H Baso % (Auto) Lymph # 1.0 L [place] # Eos # 0.6 H Baso # Seg Neutrophils % 72.3 H Seg Neuts % (Manual) Lymphocytes % (Manual) Eosinophils % (Manual) Seg Neutrophils # Lymphocytes # (Manual) Eosinophils # (Manual) PT INR D-Dimer POC ABG pH POC ABG pCO2 POC ABG pO2 ABG pO2 ABG HCO3 ABG Base Excess ABG Hemoglobin Oxyhemoglobin Sodium Potassium 5.1 H Chloride 96.5 L Carbon Dioxide BUN 73 H Creatinine 3.9 H D Glucose POC Glucose 114 H Calcium 10.3 H Phosphorus 6.30 H Magnesium 2.70 H ALT Alkaline Phosphatase 185 H Total Creatine Kinase CK-MB (CK-2) Rel Index Troponin T Albumin 2.6 L LDL Cholesterol Direct PTH Intact Salicylates Acetaminophen Crossmatch 03/31/19 03/31/19 03/31/19 05:45 10:26 10:26 WBC RBC 3.01 L Hgb 8.2 L Hct 26.4 L MCV MCH 27 L MCHC 31 L RDW 20.3 H Plt Count Lymph % (Auto) 13.3 L Ocean % (Auto) Eos % (Auto) 7.2 H Baso % (Auto) Lymph # 1.1 L Ocean # Eos # 0.6 H Baso # Seg Neutrophils % 72.1 H Seg Neuts % (Manual) Lymphocytes % (Manual) Eosinophils % (Manual) Seg Neutrophils # Lymphocytes # (Manual) Eosinophils # (Manual) PT INR D-Dimer POC ABG pH POC ABG pCO2 POC ABG pO2 ABG pO2 ABG HCO3 ABG Base Excess ABG Hemoglobin Oxyhemoglobin Sodium Potassium Chloride 96.9 L Carbon Dioxide 33 H BUN 37 H Creatinine 2.4 H Glucose POC Glucose 108 H Calcium 10.3 H Phosphorus Magnesium ALT Alkaline Phosphatase Total Creatine Kinase CK-MB (CK-2) Rel Index Troponin T Albumin LDL Cholesterol Direct PTH Intact Salicylates Acetaminophen Crossmatch 03/31/19 04/01/19 04/01/19 12:38 05:48 12:06 WBC RBC Hgb Hct MCV MCH MCHC RDW Plt Count Lymph % (Auto) Ocean % (Auto) Eos % (Auto) Baso % (Auto) Lymph # Ocean # Eos # Baso # Seg Neutrophils % Seg Neuts % (Manual) Lymphocytes % (Manual) Eosinophils % (Manual) Seg Neutrophils # Lymphocytes # (Manual) Eosinophils # (Manual) PT INR D-Dimer POC ABG pH POC ABG pCO2 POC ABG pO2 ABG pO2 ABG HCO3 ABG Base Excess ABG Hemoglobin Oxyhemoglobin Sodium Potassium Chloride Carbon Dioxide BUN Creatinine Glucose POC Glucose 108 H 114 H 111 H Calcium Phosphorus Magnesium ALT Alkaline Phosphatase Total Creatine Kinase CK-MB (CK-2) Rel Index Troponin T Albumin LDL Cholesterol Direct PTH Intact Salicylates Acetaminophen Crossmatch 04/01/19 04/02/19 04/04/19 18:24 00:36 23:55 WBC RBC Hgb Hct MCV MCH MCHC RDW Plt Count Lymph % (Auto) [place] % (Auto) Eos % (Auto) Baso % (Auto) Lymph # [place] # Eos # Baso # Seg Neutrophils % Seg Neuts % (Manual) Lymphocytes % (Manual) Eosinophils % (Manual) Seg Neutrophils # Lymphocytes # (Manual) Eosinophils # (Manual) PT INR D-Dimer POC ABG pH POC ABG pCO2 POC ABG pO2 ABG pO2 ABG HCO3 ABG Base Excess ABG Hemoglobin Oxyhemoglobin Sodium Potassium Chloride Carbon Dioxide BUN Creatinine Glucose POC Glucose 113 H 117 H 109 H Calcium Phosphorus Magnesium ALT Alkaline Phosphatase Total Creatine Kinase CK-MB (CK-2) Rel Index Troponin T Albumin LDL Cholesterol Direct PTH Intact Salicylates Acetaminophen Crossmatch 04/06/19 04/06/19 04/06/19 00:11 06:02 23:30 WBC RBC Hgb Hct MCV MCH MCHC RDW Plt Count Lymph % (Auto) [place] % (Auto) Eos % (Auto) Baso % (Auto) Lymph # [place] # Eos # Baso # Seg Neutrophils % Seg Neuts % (Manual) Lymphocytes % (Manual) Eosinophils % (Manual) Seg Neutrophils # Lymphocytes # (Manual) Eosinophils # (Manual) PT INR D-Dimer POC ABG pH POC ABG pCO2 POC ABG pO2 ABG pO2 ABG HCO3 ABG Base Excess ABG Hemoglobin Oxyhemoglobin Sodium Potassium Chloride Carbon Dioxide BUN Creatinine Glucose POC Glucose 116 H 112 H 112 H Calcium Phosphorus Magnesium ALT Alkaline Phosphatase Total Creatine Kinase CK-MB (CK-2) Rel Index Troponin T Albumin LDL Cholesterol Direct PTH Intact Salicylates Acetaminophen Crossmatch 04/08/19 04/08/19 04/08/19 02:23 06:19 13:01 WBC RBC Hgb Hct MCV MCH MCHC RDW Plt Count Lymph % (Auto) [place] % (Auto) Eos % (Auto) Baso % (Auto) Lymph # [place] # Eos # Baso # Seg Neutrophils % Seg Neuts % (Manual) Lymphocytes % (Manual) Eosinophils % (Manual) Seg Neutrophils # Lymphocytes # (Manual) Eosinophils # (Manual) PT INR D-Dimer POC ABG pH POC ABG pCO2 POC ABG pO2 ABG pO2 ABG HCO3 ABG Base Excess ABG Hemoglobin Oxyhemoglobin Sodium Potassium Chloride Carbon Dioxide BUN Creatinine Glucose POC Glucose 144 H 126 H 118 H Calcium Phosphorus Magnesium ALT Alkaline Phosphatase Total Creatine Kinase CK-MB (CK-2) Rel Index Troponin T Albumin LDL Cholesterol Direct PTH Intact Salicylates Acetaminophen Crossmatch 04/08/19 04/09/19 04/10/19 23:28 05:52 06:34 WBC RBC Hgb Hct MCV MCH MCHC RDW Plt Count Lymph % (Auto) [place] % (Auto) Eos % (Auto) Baso % (Auto) Lymph # [place] # Eos # Baso # Seg Neutrophils % Seg Neuts % (Manual) Lymphocytes % (Manual) Eosinophils % (Manual) Seg Neutrophils # Lymphocytes # (Manual) Eosinophils # (Manual) PT INR D-Dimer POC ABG pH POC ABG pCO2 POC ABG pO2 ABG pO2 ABG HCO3 ABG Base Excess ABG Hemoglobin Oxyhemoglobin Sodium Potassium Chloride Carbon Dioxide BUN Creatinine Glucose POC Glucose 119 H 116 H 114 H Calcium Phosphorus Magnesium ALT Alkaline Phosphatase Total Creatine Kinase CK-MB (CK-2) Rel Index Troponin T Albumin LDL Cholesterol Direct PTH Intact Salicylates Acetaminophen Crossmatch 04/10/19 04/10/19 04/11/19 12:34 18:59 00:36 WBC RBC Hgb Hct MCV MCH MCHC RDW Plt Count Lymph % (Auto) [place] % (Auto) Eos % (Auto) Baso % (Auto) Lymph # [place] # Eos # Baso # Seg Neutrophils % Seg Neuts % (Manual) Lymphocytes % (Manual) Eosinophils % (Manual) Seg Neutrophils # Lymphocytes # (Manual) Eosinophils # (Manual) PT INR D-Dimer POC ABG pH POC ABG pCO2 POC ABG pO2 ABG pO2 ABG HCO3 ABG Base Excess ABG Hemoglobin Oxyhemoglobin Sodium Potassium Chloride Carbon Dioxide BUN Creatinine Glucose POC Glucose 112 H 109 H 124 H Calcium Phosphorus Magnesium ALT Alkaline Phosphatase Total Creatine Kinase CK-MB (CK-2) Rel Index Troponin T Albumin LDL Cholesterol Direct PTH Intact Salicylates Acetaminophen Crossmatch 04/11/19 04/11/19 04/12/19 08:01 17:25 02:18 WBC RBC Hgb Hct MCV MCH MCHC RDW Plt Count Lymph % (Auto) [place] % (Auto) Eos % (Auto) Baso % (Auto) Lymph # [place] # Eos # Baso # Seg Neutrophils % Seg Neuts % (Manual) Lymphocytes % (Manual) Eosinophils % (Manual) Seg Neutrophils # Lymphocytes # (Manual) Eosinophils # (Manual) PT INR D-Dimer POC ABG pH POC ABG pCO2 POC ABG pO2 ABG pO2 ABG HCO3 ABG Base Excess ABG Hemoglobin Oxyhemoglobin Sodium Potassium Chloride Carbon Dioxide BUN Creatinine Glucose POC Glucose 118 H 106 H 125 H Calcium Phosphorus Magnesium ALT Alkaline Phosphatase Total Creatine Kinase CK-MB (CK-2) Rel Index Troponin T Albumin LDL Cholesterol Direct PTH Intact Salicylates Acetaminophen Crossmatch 04/12/19 04/12/19 04/12/19 06:24 12:22 17:13 WBC RBC Hgb Hct MCV MCH MCHC RDW Plt Count Lymph % (Auto) [place] % (Auto) Eos % (Auto) Baso % (Auto) Lymph # [place] # Eos # Baso # Seg Neutrophils % Seg Neuts % (Manual) Lymphocytes % (Manual) Eosinophils % (Manual) Seg Neutrophils # Lymphocytes # (Manual) Eosinophils # (Manual) PT INR D-Dimer POC ABG pH POC ABG pCO2 POC ABG pO2 ABG pO2 ABG HCO3 ABG Base Excess ABG Hemoglobin Oxyhemoglobin Sodium Potassium Chloride Carbon Dioxide BUN Creatinine Glucose POC Glucose 128 H 114 H 110 H Calcium Phosphorus Magnesium ALT Alkaline Phosphatase Total Creatine Kinase CK-MB (CK-2) Rel Index Troponin T Albumin LDL Cholesterol Direct PTH Intact Salicylates Acetaminophen Crossmatch 04/13/19 04/13/19 04/13/19 06:59 07:31 07:31 WBC RBC 3.34 L Hgb 8.9 L Hct 28.6 L MCV MCH 27 L MCHC 31 L RDW 19.6 H Plt Count Lymph % (Auto) [place] % (Auto) Eos % (Auto) Baso % (Auto) Lymph # [place] # Eos # Baso # Seg Neutrophils % Seg Neuts % (Manual) Lymphocytes % (Manual) Eosinophils % (Manual) Seg Neutrophils # Lymphocytes # (Manual) Eosinophils # (Manual) PT INR D-Dimer POC ABG pH POC ABG pCO2 POC ABG pO2 ABG pO2 ABG HCO3 ABG Base Excess ABG Hemoglobin Oxyhemoglobin Sodium Potassium Chloride 96.4 L Carbon Dioxide 33 H BUN 66 H Creatinine 4.5 H Glucose 103 H POC Glucose 107 H Calcium Phosphorus Magnesium ALT Alkaline Phosphatase Total Creatine Kinase CK-MB (CK-2) Rel Index Troponin T Albumin LDL Cholesterol Direct PTH Intact Salicylates Acetaminophen Crossmatch 04/13/19 04/14/19 04/14/19 23:43 05:50 13:07 WBC RBC Hgb Hct MCV MCH MCHC RDW Plt Count Lymph % (Auto) [place] % (Auto) Eos % (Auto) Baso % (Auto) Lymph # [place] # Eos # Baso # Seg Neutrophils % Seg Neuts % (Manual) Lymphocytes % (Manual) Eosinophils % (Manual) Seg Neutrophils # Lymphocytes # (Manual) Eosinophils # (Manual) PT INR D-Dimer POC ABG pH POC ABG pCO2 POC ABG pO2 ABG pO2 ABG HCO3 ABG Base Excess ABG Hemoglobin Oxyhemoglobin Sodium Potassium Chloride Carbon Dioxide BUN Creatinine Glucose POC Glucose 119 H 112 H 112 H Calcium Phosphorus Magnesium ALT Alkaline Phosphatase Total Creatine Kinase CK-MB (CK-2) Rel Index Troponin T Albumin LDL Cholesterol Direct PTH Intact Salicylates Acetaminophen Crossmatch 04/14/19 04/15/19 04/15/19 18:35 01:18 05:17 WBC RBC Hgb Hct MCV MCH MCHC RDW Plt Count Lymph % (Auto) [place] % (Auto) Eos % (Auto) Baso % (Auto) Lymph # [place] # Eos # Baso # Seg Neutrophils % Seg Neuts % (Manual) Lymphocytes % (Manual) Eosinophils % (Manual) Seg Neutrophils # Lymphocytes # (Manual) Eosinophils # (Manual) PT INR D-Dimer POC ABG pH POC ABG pCO2 POC ABG pO2 ABG pO2 ABG HCO3 ABG Base Excess ABG Hemoglobin Oxyhemoglobin Sodium Potassium Chloride Carbon Dioxide BUN Creatinine Glucose POC Glucose 114 H 114 H 114 H Calcium Phosphorus Magnesium ALT Alkaline Phosphatase Total Creatine Kinase CK-MB (CK-2) Rel Index Troponin T Albumin LDL Cholesterol Direct PTH Intact Salicylates Acetaminophen Crossmatch 04/15/19 04/15/19 04/16/19 11:50 23:39 05:41 WBC RBC Hgb Hct MCV MCH MCHC RDW Plt Count Lymph % (Auto) [place] % (Auto) Eos % (Auto) Baso % (Auto) Lymph # [place] # Eos # Baso # Seg Neutrophils % Seg Neuts % (Manual) Lymphocytes % (Manual) Eosinophils % (Manual) Seg Neutrophils # Lymphocytes # (Manual) Eosinophils # (Manual) PT INR D-Dimer POC ABG pH POC ABG pCO2 POC ABG pO2 ABG pO2 ABG HCO3 ABG Base Excess ABG Hemoglobin Oxyhemoglobin Sodium Potassium Chloride Carbon Dioxide BUN Creatinine Glucose POC Glucose 109 H 115 H 125 H Calcium Phosphorus Magnesium ALT Alkaline Phosphatase Total Creatine Kinase CK-MB (CK-2) Rel Index Troponin T Albumin LDL Cholesterol Direct PTH Intact Salicylates Acetaminophen Crossmatch 04/16/19 04/17/19 04/17/19 12:53 01:00 12:38 WBC RBC Hgb Hct MCV MCH MCHC RDW Plt Count Lymph % (Auto) [place] % (Auto) Eos % (Auto) Baso % (Auto) Lymph # [place] # Eos # Baso # Seg Neutrophils % Seg Neuts % (Manual) Lymphocytes % (Manual) Eosinophils % (Manual) Seg Neutrophils # Lymphocytes # (Manual) Eosinophils # (Manual) PT INR D-Dimer POC ABG pH POC ABG pCO2 POC ABG pO2 ABG pO2 ABG HCO3 ABG Base Excess ABG Hemoglobin Oxyhemoglobin Sodium Potassium Chloride Carbon Dioxide BUN Creatinine Glucose POC Glucose 121 H 127 H 159 H Calcium Phosphorus Magnesium ALT Alkaline Phosphatase Total Creatine Kinase CK-MB (CK-2) Rel Index Troponin T Albumin LDL Cholesterol Direct PTH Intact Salicylates Acetaminophen Crossmatch 04/17/19 04/17/19 04/18/19 18:27 23:36 07:19 WBC RBC 3.49 L Hgb 9.0 L Hct 29.9 L MCV MCH 26 L MCHC 30 L RDW 20.0 H Plt Count Lymph % (Auto) [place] % (Auto) Eos % (Auto) Baso % (Auto) Lymph # [place] # Eos # Baso # Seg Neutrophils % Seg Neuts % (Manual) Lymphocytes % (Manual) Eosinophils % (Manual) Seg Neutrophils # Lymphocytes # (Manual) Eosinophils # (Manual) PT INR D-Dimer POC ABG pH POC ABG pCO2 POC ABG pO2 ABG pO2 ABG HCO3 ABG Base Excess ABG Hemoglobin Oxyhemoglobin Sodium Potassium Chloride Carbon Dioxide BUN Creatinine Glucose POC Glucose 109 H 134 H Calcium Phosphorus Magnesium ALT Alkaline Phosphatase Total Creatine Kinase CK-MB (CK-2) Rel Index Troponin T Albumin LDL Cholesterol Direct PTH Intact Salicylates Acetaminophen Crossmatch 04/18/19 04/18/19 04/18/19 07:19 12:16 17:09 WBC RBC Hgb Hct MCV MCH MCHC RDW Plt Count Lymph % (Auto) [place] % (Auto) Eos % (Auto) Baso % (Auto) Lymph # [place] # Eos # Baso # Seg Neutrophils % Seg Neuts % (Manual) Lymphocytes % (Manual) Eosinophils % (Manual) Seg Neutrophils # Lymphocytes # (Manual) Eosinophils # (Manual) PT INR D-Dimer POC ABG pH POC ABG pCO2 POC ABG pO2 ABG pO2 ABG HCO3 ABG Base Excess ABG Hemoglobin Oxyhemoglobin Sodium Potassium Chloride Carbon Dioxide BUN 41 H Creatinine 2.9 H Glucose 122 H POC Glucose 125 H 131 H Calcium Phosphorus Magnesium ALT Alkaline Phosphatase Total Creatine Kinase CK-MB (CK-2) Rel Index Troponin T Albumin LDL Cholesterol Direct PTH Intact Salicylates Acetaminophen Crossmatch 04/18/19 04/19/19 04/19/19 23:57 05:55 11:35 WBC RBC Hgb Hct MCV MCH MCHC RDW Plt Count Lymph % (Auto) [place] % (Auto) Eos % (Auto) Baso % (Auto) Lymph # [place] # Eos # Baso # Seg Neutrophils % Seg Neuts % (Manual) Lymphocytes % (Manual) Eosinophils % (Manual) Seg Neutrophils # Lymphocytes # (Manual) Eosinophils # (Manual) PT INR D-Dimer POC ABG pH POC ABG pCO2 POC ABG pO2 ABG pO2 ABG HCO3 ABG Base Excess ABG Hemoglobin Oxyhemoglobin Sodium Potassium Chloride Carbon Dioxide BUN Creatinine Glucose POC Glucose 159 H 144 H 177 H Calcium Phosphorus Magnesium ALT Alkaline Phosphatase Total Creatine Kinase CK-MB (CK-2) Rel Index Troponin T Albumin LDL Cholesterol Direct PTH Intact Salicylates Acetaminophen Crossmatch 04/19/19 04/20/19 04/20/19 16:36 02:05 06:28 WBC RBC Hgb Hct MCV MCH MCHC RDW Plt Count Lymph % (Auto) [place] % (Auto) Eos % (Auto) Baso % (Auto) Lymph # [place] # Eos # Baso # Seg Neutrophils % Seg Neuts % (Manual) Lymphocytes % (Manual) Eosinophils % (Manual) Seg Neutrophils # Lymphocytes # (Manual) Eosinophils # (Manual) PT INR D-Dimer POC ABG pH POC ABG pCO2 POC ABG pO2 ABG pO2 ABG HCO3 ABG Base Excess ABG Hemoglobin Oxyhemoglobin Sodium Potassium Chloride Carbon Dioxide BUN Creatinine Glucose POC Glucose 134 H 142 H 132 H Calcium Phosphorus Magnesium ALT Alkaline Phosphatase Total Creatine Kinase CK-MB (CK-2) Rel Index Troponin T Albumin LDL Cholesterol Direct PTH Intact Salicylates Acetaminophen Crossmatch 04/20/19 04/20/19 04/21/19 12:37 23:34 05:59 WBC RBC Hgb Hct MCV MCH MCHC RDW Plt Count Lymph % (Auto) [place] % (Auto) Eos % (Auto) Baso % (Auto) Lymph # [place] # Eos # Baso # Seg Neutrophils % Seg Neuts % (Manual) Lymphocytes % (Manual) Eosinophils % (Manual) Seg Neutrophils # Lymphocytes # (Manual) Eosinophils # (Manual) PT INR D-Dimer POC ABG pH POC ABG pCO2 POC ABG pO2 ABG pO2 ABG HCO3 ABG Base Excess ABG Hemoglobin Oxyhemoglobin Sodium Potassium Chloride Carbon Dioxide BUN Creatinine Glucose POC Glucose 163 H 166 H 140 H Calcium Phosphorus Magnesium ALT Alkaline Phosphatase Total Creatine Kinase CK-MB (CK-2) Rel Index Troponin T Albumin LDL Cholesterol Direct PTH Intact Salicylates Acetaminophen Crossmatch 04/21/19 04/21/19 04/21/19 12:07 17:22 23:43 WBC RBC Hgb Hct MCV MCH MCHC RDW Plt Count Lymph % (Auto) [place] % (Auto) Eos % (Auto) Baso % (Auto) Lymph # [place] # Eos # Baso # Seg Neutrophils % Seg Neuts % (Manual) Lymphocytes % (Manual) Eosinophils % (Manual) Seg Neutrophils # Lymphocytes # (Manual) Eosinophils # (Manual) PT INR D-Dimer POC ABG pH POC ABG pCO2 POC ABG pO2 ABG pO2 ABG HCO3 ABG Base Excess ABG Hemoglobin Oxyhemoglobin Sodium Potassium Chloride Carbon Dioxide BUN Creatinine Glucose POC Glucose 135 H 141 H 138 H Calcium Phosphorus Magnesium ALT Alkaline Phosphatase Total Creatine Kinase CK-MB (CK-2) Rel Index Troponin T Albumin LDL Cholesterol Direct PTH Intact Salicylates Acetaminophen Crossmatch 04/22/19 04/22/19 04/22/19 05:12 18:24 23:49 WBC RBC Hgb Hct MCV MCH MCHC RDW Plt Count Lymph % (Auto) [place] % (Auto) Eos % (Auto) Baso % (Auto) Lymph # [place] # Eos # Baso # Seg Neutrophils % Seg Neuts % (Manual) Lymphocytes % (Manual) Eosinophils % (Manual) Seg Neutrophils # Lymphocytes # (Manual) Eosinophils # (Manual) PT INR D-Dimer POC ABG pH POC ABG pCO2 POC ABG pO2 ABG pO2 ABG HCO3 ABG Base Excess ABG Hemoglobin Oxyhemoglobin Sodium Potassium Chloride Carbon Dioxide BUN Creatinine Glucose POC Glucose 141 H 137 H 142 H Calcium Phosphorus Magnesium ALT Alkaline Phosphatase Total Creatine Kinase CK-MB (CK-2) Rel Index Troponin T Albumin LDL Cholesterol Direct PTH Intact Salicylates Acetaminophen Crossmatch 04/23/19 04/23/19 04/23/19 05:53 08:13 11:58 WBC RBC Hgb Hct MCV MCH MCHC RDW Plt Count Lymph % (Auto) [place] % (Auto) Eos % (Auto) Baso % (Auto) Lymph # [place] # Eos # Baso # Seg Neutrophils % Seg Neuts % (Manual) Lymphocytes % (Manual) Eosinophils % (Manual) Seg Neutrophils # Lymphocytes # (Manual) Eosinophils # (Manual) PT INR D-Dimer POC ABG pH POC ABG pCO2 POC ABG pO2 ABG pO2 ABG HCO3 ABG Base Excess ABG Hemoglobin Oxyhemoglobin Sodium Potassium Chloride Carbon Dioxide BUN Creatinine Glucose POC Glucose 132 H 154 H 165 H Calcium Phosphorus Magnesium ALT Alkaline Phosphatase Total Creatine Kinase CK-MB (CK-2) Rel Index Troponin T Albumin LDL Cholesterol Direct PTH Intact Salicylates Acetaminophen Crossmatch 04/23/19 04/24/19 04/24/19 16:28 00:28 07:00 WBC RBC Hgb Hct MCV MCH MCHC RDW Plt Count Lymph % (Auto) [place] % (Auto) Eos % (Auto) Baso % (Auto) Lymph # [place] # Eos # Baso # Seg Neutrophils % Seg Neuts % (Manual) Lymphocytes % (Manual) Eosinophils % (Manual) Seg Neutrophils # Lymphocytes # (Manual) Eosinophils # (Manual) PT INR D-Dimer POC ABG pH POC ABG pCO2 POC ABG pO2 ABG pO2 ABG HCO3 ABG Base Excess ABG Hemoglobin Oxyhemoglobin Sodium Potassium Chloride Carbon Dioxide BUN Creatinine Glucose POC Glucose 136 H 140 H 141 H Calcium Phosphorus Magnesium ALT Alkaline Phosphatase Total Creatine Kinase CK-MB (CK-2) Rel Index Troponin T Albumin LDL Cholesterol Direct PTH Intact Salicylates Acetaminophen Crossmatch 04/24/19 04/24/19 04/25/19 12:38 18:57 00:38 WBC RBC Hgb Hct MCV MCH MCHC RDW Plt Count Lymph % (Auto) [place] % (Auto) Eos % (Auto) Baso % (Auto) Lymph # [place] # Eos # Baso # Seg Neutrophils % Seg Neuts % (Manual) Lymphocytes % (Manual) Eosinophils % (Manual) Seg Neutrophils # Lymphocytes # (Manual) Eosinophils # (Manual) PT INR D-Dimer POC ABG pH POC ABG pCO2 POC ABG pO2 ABG pO2 ABG HCO3 ABG Base Excess ABG Hemoglobin Oxyhemoglobin Sodium Potassium Chloride Carbon Dioxide BUN Creatinine Glucose POC Glucose 152 H 166 H 128 H Calcium Phosphorus Magnesium ALT Alkaline Phosphatase Total Creatine Kinase CK-MB (CK-2) Rel Index Troponin T Albumin LDL Cholesterol Direct PTH Intact Salicylates Acetaminophen Crossmatch 04/25/19 04/25/19 04/25/19 05:44 13:43 18:34 WBC RBC Hgb Hct MCV MCH MCHC RDW Plt Count Lymph % (Auto) [place] % (Auto) Eos % (Auto) Baso % (Auto) Lymph # [place] # Eos # Baso # Seg Neutrophils % Seg Neuts % (Manual) Lymphocytes % (Manual) Eosinophils % (Manual) Seg Neutrophils # Lymphocytes # (Manual) Eosinophils # (Manual) PT INR D-Dimer POC ABG pH POC ABG pCO2 POC ABG pO2 ABG pO2 ABG HCO3 ABG Base Excess ABG Hemoglobin Oxyhemoglobin Sodium Potassium Chloride Carbon Dioxide BUN Creatinine Glucose POC Glucose 153 H 186 H 124 H Calcium Phosphorus Magnesium ALT Alkaline Phosphatase Total Creatine Kinase CK-MB (CK-2) Rel Index Troponin T Albumin LDL Cholesterol Direct PTH Intact Salicylates Acetaminophen Crossmatch 04/26/19 04/26/19 04/26/19 00:59 05:52 10:12 WBC 11.5 H RBC 2.84 L Hgb 7.4 L Hct 23.3 L MCV 82 L MCH 26 L MCHC RDW 20.3 H Plt Count Lymph % (Auto) 7.5 L [place] % (Auto) 7.5 H Eos % (Auto) 5.3 H Baso % (Auto) Lymph # 0.9 L [place] # 0.9 H Eos # 0.6 H Baso # Seg Neutrophils % 79.2 H Seg Neuts % (Manual) Lymphocytes % (Manual) Eosinophils % (Manual) Seg Neutrophils # 9.1 H Lymphocytes # (Manual) Eosinophils # (Manual) PT INR D-Dimer POC ABG pH POC ABG pCO2 POC ABG pO2 ABG pO2 ABG HCO3 ABG Base Excess ABG Hemoglobin Oxyhemoglobin Sodium Potassium Chloride Carbon Dioxide BUN Creatinine Glucose POC Glucose 163 H 146 H Calcium Phosphorus Magnesium ALT Alkaline Phosphatase Total Creatine Kinase CK-MB (CK-2) Rel Index Troponin T Albumin LDL Cholesterol Direct PTH Intact Salicylates Acetaminophen Crossmatch 04/26/19 04/26/19 04/26/19 10:12 12:15 19:00 WBC RBC Hgb Hct MCV MCH MCHC RDW Plt Count Lymph % (Auto) [place] % (Auto) Eos % (Auto) Baso % (Auto) Lymph # [place] # Eos # Baso # Seg Neutrophils % Seg Neuts % (Manual) Lymphocytes % (Manual) Eosinophils % (Manual) Seg Neutrophils # Lymphocytes # (Manual) Eosinophils # (Manual) PT INR D-Dimer POC ABG pH POC ABG pCO2 POC ABG pO2 ABG pO2 ABG HCO3 ABG Base Excess ABG Hemoglobin Oxyhemoglobin Sodium 130 L Potassium Chloride 87.4 L Carbon Dioxide BUN 93 H Creatinine 4.2 H Glucose 140 H POC Glucose 155 H 179 H Calcium Phosphorus Magnesium ALT Alkaline Phosphatase Total Creatine Kinase CK-MB (CK-2) Rel Index Troponin T Albumin LDL Cholesterol Direct PTH Intact Salicylates Acetaminophen Crossmatch 04/27/19 04/27/19 04/27/19 00:23 06:34 17:13 WBC RBC Hgb Hct MCV MCH MCHC RDW Plt Count Lymph % (Auto) [place] % (Auto) Eos % (Auto) Baso % (Auto) Lymph # [place] # Eos # Baso # Seg Neutrophils % Seg Neuts % (Manual) Lymphocytes % (Manual) Eosinophils % (Manual) Seg Neutrophils # Lymphocytes # (Manual) Eosinophils # (Manual) PT INR D-Dimer POC ABG pH POC ABG pCO2 POC ABG pO2 ABG pO2 ABG HCO3 ABG Base Excess ABG Hemoglobin Oxyhemoglobin Sodium Potassium Chloride Carbon Dioxide BUN Creatinine Glucose POC Glucose 158 H 140 H 152 H Calcium Phosphorus Magnesium ALT Alkaline Phosphatase Total Creatine Kinase CK-MB (CK-2) Rel Index Troponin T Albumin LDL Cholesterol Direct PTH Intact Salicylates Acetaminophen Crossmatch 04/27/19 04/28/19 04/28/19 23:50 05:18 11:37 WBC RBC Hgb Hct MCV MCH MCHC RDW Plt Count Lymph % (Auto) [place] % (Auto) Eos % (Auto) Baso % (Auto) Lymph # [place] # Eos # Baso # Seg Neutrophils % Seg Neuts % (Manual) Lymphocytes % (Manual) Eosinophils % (Manual) Seg Neutrophils # Lymphocytes # (Manual) Eosinophils # (Manual) PT INR D-Dimer POC ABG pH POC ABG pCO2 POC ABG pO2 ABG pO2 ABG HCO3 ABG Base Excess ABG Hemoglobin Oxyhemoglobin Sodium Potassium Chloride Carbon Dioxide BUN Creatinine Glucose POC Glucose 160 H 145 H 177 H Calcium Phosphorus Magnesium ALT Alkaline Phosphatase Total Creatine Kinase CK-MB (CK-2) Rel Index Troponin T Albumin LDL Cholesterol Direct PTH Intact Salicylates Acetaminophen Crossmatch 04/28/19 04/28/19 04/29/19 18:31 23:47 05:50 WBC RBC Hgb Hct MCV MCH MCHC RDW Plt Count Lymph % (Auto) [place] % (Auto) Eos % (Auto) Baso % (Auto) Lymph # [place] # Eos # Baso # Seg Neutrophils % Seg Neuts % (Manual) Lymphocytes % (Manual) Eosinophils % (Manual) Seg Neutrophils # Lymphocytes # (Manual) Eosinophils # (Manual) PT INR D-Dimer POC ABG pH POC ABG pCO2 POC ABG pO2 ABG pO2 ABG HCO3 ABG Base Excess ABG Hemoglobin Oxyhemoglobin Sodium Potassium Chloride Carbon Dioxide BUN Creatinine Glucose POC Glucose 153 H 117 H 177 H Calcium Phosphorus Magnesium ALT Alkaline Phosphatase Total Creatine Kinase CK-MB (CK-2) Rel Index Troponin T Albumin LDL Cholesterol Direct PTH Intact Salicylates Acetaminophen Crossmatch 04/29/19 04/30/19 04/30/19 17:04 01:02 06:42 WBC RBC Hgb Hct MCV MCH MCHC RDW Plt Count Lymph % (Auto) [place] % (Auto) Eos % (Auto) Baso % (Auto) Lymph # [place] # Eos # Baso # Seg Neutrophils % Seg Neuts % (Manual) Lymphocytes % (Manual) Eosinophils % (Manual) Seg Neutrophils # Lymphocytes # (Manual) Eosinophils # (Manual) PT INR D-Dimer POC ABG pH POC ABG pCO2 POC ABG pO2 ABG pO2 ABG HCO3 ABG Base Excess ABG Hemoglobin Oxyhemoglobin Sodium Potassium Chloride Carbon Dioxide BUN Creatinine Glucose POC Glucose 205 H 143 H 145 H Calcium Phosphorus Magnesium ALT Alkaline Phosphatase Total Creatine Kinase CK-MB (CK-2) Rel Index Troponin T Albumin LDL Cholesterol Direct PTH Intact Salicylates Acetaminophen Crossmatch 04/30/19 04/30/19 04/30/19 11:31 18:12 23:38 WBC RBC Hgb Hct MCV MCH MCHC RDW Plt Count Lymph % (Auto) [place] % (Auto) Eos % (Auto) Baso % (Auto) Lymph # [place] # Eos # Baso # Seg Neutrophils % Seg Neuts % (Manual) Lymphocytes % (Manual) Eosinophils % (Manual) Seg Neutrophils # Lymphocytes # (Manual) Eosinophils # (Manual) PT INR D-Dimer POC ABG pH POC ABG pCO2 POC ABG pO2 ABG pO2 ABG HCO3 ABG Base Excess ABG Hemoglobin Oxyhemoglobin Sodium Potassium Chloride Carbon Dioxide BUN Creatinine Glucose POC Glucose 162 H 117 H 139 H Calcium Phosphorus Magnesium ALT Alkaline Phosphatase Total Creatine Kinase CK-MB (CK-2) Rel Index Troponin T Albumin LDL Cholesterol Direct PTH Intact Salicylates Acetaminophen Crossmatch 05/01/19 05/01/19 05/02/19 06:06 23:41 05:59 WBC RBC Hgb Hct MCV MCH MCHC RDW Plt Count Lymph % (Auto) [place] % (Auto) Eos % (Auto) Baso % (Auto) Lymph # [place] # Eos # Baso # Seg Neutrophils % Seg Neuts % (Manual) Lymphocytes % (Manual) Eosinophils % (Manual) Seg Neutrophils # Lymphocytes # (Manual) Eosinophils # (Manual) PT INR D-Dimer POC ABG pH POC ABG pCO2 POC ABG pO2 ABG pO2 ABG HCO3 ABG Base Excess ABG Hemoglobin Oxyhemoglobin Sodium Potassium Chloride Carbon Dioxide BUN Creatinine Glucose POC Glucose 150 H 140 H 130 H Calcium Phosphorus Magnesium ALT Alkaline Phosphatase Total Creatine Kinase CK-MB (CK-2) Rel Index Troponin T Albumin LDL Cholesterol Direct PTH Intact Salicylates Acetaminophen Crossmatch 05/02/19 05/02/19 05/03/19 11:55 18:10 00:15 WBC RBC Hgb Hct MCV MCH MCHC RDW Plt Count Lymph % (Auto) Ocean % (Auto) Eos % (Auto) Baso % (Auto) Lymph # Ocean # Eos # Baso # Seg Neutrophils % Seg Neuts % (Manual) Lymphocytes % (Manual) Eosinophils % (Manual) Seg Neutrophils # Lymphocytes # (Manual) Eosinophils # (Manual) PT INR D-Dimer POC ABG pH POC ABG pCO2 POC ABG pO2 ABG pO2 ABG HCO3 ABG Base Excess ABG Hemoglobin Oxyhemoglobin Sodium Potassium Chloride Carbon Dioxide BUN Creatinine Glucose POC Glucose 146 H 141 H 145 H Calcium Phosphorus Magnesium ALT Alkaline Phosphatase Total Creatine Kinase CK-MB (CK-2) Rel Index Troponin T Albumin LDL Cholesterol Direct PTH Intact Salicylates Acetaminophen Crossmatch 05/03/19 05/03/19 05/03/19 05:49 05:49 06:01 WBC RBC 2.84 L Hgb 7.2 L Hct 22.9 L MCV 81 L MCH 26 L MCHC RDW 20.6 H Plt Count 456 H Lymph % (Auto) 11.8 L Ocean % (Auto) Eos % (Auto) 10.6 H Baso % (Auto) Lymph # 1.1 L Ocean # Eos # 1.0 H Baso # Seg Neutrophils % 70.4 H Seg Neuts % (Manual) Lymphocytes % (Manual) Eosinophils % (Manual) Seg Neutrophils # Lymphocytes # (Manual) Eosinophils # (Manual) PT INR D-Dimer POC ABG pH POC ABG pCO2 POC ABG pO2 ABG pO2 ABG HCO3 ABG Base Excess ABG Hemoglobin Oxyhemoglobin Sodium Potassium Chloride 94.8 L Carbon Dioxide BUN 66 H Creatinine 3.6 H Glucose 129 H POC Glucose 135 H Calcium Phosphorus Magnesium ALT Alkaline Phosphatase Total Creatine Kinase CK-MB (CK-2) Rel Index Troponin T Albumin LDL Cholesterol Direct PTH Intact Salicylates Acetaminophen Crossmatch 05/03/19 05/03/19 05/04/19 11:04 18:40 00:06 WBC RBC Hgb Hct MCV MCH MCHC RDW Plt Count Lymph % (Auto) Ocean % (Auto) Eos % (Auto) Baso % (Auto) Lymph # Ocean # Eos # Baso # Seg Neutrophils % Seg Neuts % (Manual) Lymphocytes % (Manual) Eosinophils % (Manual) Seg Neutrophils # Lymphocytes # (Manual) Eosinophils # (Manual) PT INR D-Dimer POC ABG pH POC ABG pCO2 POC ABG pO2 ABG pO2 ABG HCO3 ABG Base Excess ABG Hemoglobin Oxyhemoglobin Sodium Potassium Chloride Carbon Dioxide BUN Creatinine Glucose POC Glucose 191 H 167 H 137 H Calcium Phosphorus Magnesium ALT Alkaline Phosphatase Total Creatine Kinase CK-MB (CK-2) Rel Index Troponin T Albumin LDL Cholesterol Direct PTH Intact Salicylates Acetaminophen Crossmatch 05/04/19 05/04/19 05/04/19 06:44 07:30 07:30 WBC 15.8 H RBC 2.74 L Hgb 6.7 L Hct 22.2 L MCV 81 L MCH 24 L MCHC 30 L RDW 20.4 H Plt Count 450 H Lymph % (Auto) 5.1 L Ocean % (Auto) Eos % (Auto) Baso % (Auto) Lymph # 0.8 L [place] # Eos # 0.6 H Baso # Seg Neutrophils % 86.3 H Seg Neuts % (Manual) Lymphocytes % (Manual) Eosinophils % (Manual) Seg Neutrophils # 13.6 H Lymphocytes # (Manual) Eosinophils # (Manual) PT INR D-Dimer POC ABG pH POC ABG pCO2 POC ABG pO2 ABG pO2 ABG HCO3 ABG Base Excess ABG Hemoglobin Oxyhemoglobin Sodium Potassium Chloride 95.2 L Carbon Dioxide BUN 92 H Creatinine 4.8 H Glucose 139 H POC Glucose 153 H Calcium Phosphorus Magnesium ALT Alkaline Phosphatase Total Creatine Kinase CK-MB (CK-2) Rel Index Troponin T Albumin LDL Cholesterol Direct PTH Intact Salicylates Acetaminophen Crossmatch 05/04/19 05/04/19 05/05/19 12:55 16:31 01:02 WBC RBC Hgb Hct MCV MCH MCHC RDW Plt Count Lymph % (Auto) [place] % (Auto) Eos % (Auto) Baso % (Auto) Lymph # [place] # Eos # Baso # Seg Neutrophils % Seg Neuts % (Manual) Lymphocytes % (Manual) Eosinophils % (Manual) Seg Neutrophils # Lymphocytes # (Manual) Eosinophils # (Manual) PT INR D-Dimer POC ABG pH POC ABG pCO2 POC ABG pO2 ABG pO2 ABG HCO3 ABG Base Excess ABG Hemoglobin Oxyhemoglobin Sodium Potassium Chloride Carbon Dioxide BUN Creatinine Glucose POC Glucose 169 H 171 H Calcium Phosphorus Magnesium ALT Alkaline Phosphatase Total Creatine Kinase CK-MB (CK-2) Rel Index Troponin T Albumin LDL Cholesterol Direct PTH Intact Salicylates Acetaminophen Crossmatch See Detail 05/05/19 05/05/19 05/05/19 05:26 05:36 11:48 WBC 12.6 H RBC 2.73 L Hgb 6.9 L Hct 22.3 L MCV 82 L MCH 25 L MCHC 31 L RDW 21.0 H Plt Count Lymph % (Auto) 8.9 L [place] % (Auto) Eos % (Auto) Baso % (Auto) Lymph # 1.1 L [place] # 0.9 H Eos # Baso # Seg Neutrophils % 80.7 H Seg Neuts % (Manual) Lymphocytes % (Manual) Eosinophils % (Manual) Seg Neutrophils # 10.2 H Lymphocytes # (Manual) Eosinophils # (Manual) PT INR D-Dimer POC ABG pH POC ABG pCO2 POC ABG pO2 ABG pO2 ABG HCO3 ABG Base Excess ABG Hemoglobin Oxyhemoglobin Sodium Potassium Chloride Carbon Dioxide BUN Creatinine Glucose POC Glucose 153 H 173 H Calcium Phosphorus Magnesium ALT Alkaline Phosphatase Total Creatine Kinase CK-MB (CK-2) Rel Index Troponin T Albumin LDL Cholesterol Direct PTH Intact Salicylates Acetaminophen Crossmatch 05/05/19 05/06/19 05/06/19 16:42 02:24 06:12 WBC RBC Hgb Hct MCV MCH MCHC RDW Plt Count Lymph % (Auto) [place] % (Auto) Eos % (Auto) Baso % (Auto) Lymph # [place] # Eos # Baso # Seg Neutrophils % Seg Neuts % (Manual) Lymphocytes % (Manual) Eosinophils % (Manual) Seg Neutrophils # Lymphocytes # (Manual) Eosinophils # (Manual) PT INR D-Dimer POC ABG pH POC ABG pCO2 POC ABG pO2 ABG pO2 ABG HCO3 ABG Base Excess ABG Hemoglobin Oxyhemoglobin Sodium Potassium Chloride Carbon Dioxide BUN Creatinine Glucose POC Glucose 126 H 138 H 151 H Calcium Phosphorus Magnesium ALT Alkaline Phosphatase Total Creatine Kinase CK-MB (CK-2) Rel Index Troponin T Albumin LDL Cholesterol Direct PTH Intact Salicylates Acetaminophen Crossmatch 05/06/19 05/06/19 05/06/19 08:15 16:48 23:16 WBC 11.8 H RBC 2.72 L Hgb 6.7 L Hct 21.7 L MCV 80 L MCH 25 L MCHC 31 L RDW 20.9 H Plt Count Lymph % (Auto) [place] % (Auto) Eos % (Auto) Baso % (Auto) Lymph # [place] # Eos # Baso # Seg Neutrophils % Seg Neuts % (Manual) Lymphocytes % (Manual) Eosinophils % (Manual) Seg Neutrophils # Lymphocytes # (Manual) Eosinophils # (Manual) PT INR D-Dimer POC ABG pH POC ABG pCO2 POC ABG pO2 ABG pO2 ABG HCO3 ABG Base Excess ABG Hemoglobin Oxyhemoglobin Sodium Potassium Chloride Carbon Dioxide BUN Creatinine Glucose POC Glucose 153 H 143 H Calcium Phosphorus Magnesium ALT Alkaline Phosphatase Total Creatine Kinase CK-MB (CK-2) Rel Index Troponin T Albumin LDL Cholesterol Direct PTH Intact Salicylates Acetaminophen Crossmatch 05/07/19 05/07/19 05/07/19 06:00 06:30 12:33 WBC RBC 3.53 L Hgb 9.1 L Hct 28.6 L D MCV 81 L MCH 26 L MCHC RDW 19.1 H Plt Count Lymph % (Auto) 9.6 L [place] % (Auto) Eos % (Auto) 4.8 H Baso % (Auto) Lymph # 1.1 L [place] # Eos # 0.5 H Baso # Seg Neutrophils % 77.8 H Seg Neuts % (Manual) Lymphocytes % (Manual) Eosinophils % (Manual) Seg Neutrophils # 8.6 H Lymphocytes # (Manual) Eosinophils # (Manual) PT INR D-Dimer POC ABG pH POC ABG pCO2 POC ABG pO2 ABG pO2 ABG HCO3 ABG Base Excess ABG Hemoglobin Oxyhemoglobin Sodium Potassium Chloride Carbon Dioxide BUN Creatinine Glucose POC Glucose 122 H 140 H Calcium Phosphorus Magnesium ALT Alkaline Phosphatase Total Creatine Kinase CK-MB (CK-2) Rel Index Troponin T Albumin LDL Cholesterol Direct PTH Intact Salicylates Acetaminophen Crossmatch 05/07/19 05/07/19 05/08/19 16:41 23:55 05:10 WBC 11.6 H RBC 3.54 L Hgb 9.1 L Hct 29.1 L MCV 82 L MCH 26 L MCHC 31 L RDW 19.6 H Plt Count Lymph % (Auto) 6.6 L [place] % (Auto) Eos % (Auto) Baso % (Auto) 1.9 H Lymph # 0.8 L [place] # Eos # Baso # 0.2 H Seg Neutrophils % 82.6 H Seg Neuts % (Manual) Lymphocytes % (Manual) Eosinophils % (Manual) Seg Neutrophils # 9.6 H Lymphocytes # (Manual) Eosinophils # (Manual) PT INR D-Dimer POC ABG pH POC ABG pCO2 POC ABG pO2 ABG pO2 ABG HCO3 ABG Base Excess ABG Hemoglobin Oxyhemoglobin Sodium Potassium Chloride Carbon Dioxide BUN Creatinine Glucose POC Glucose 143 H 153 H Calcium Phosphorus Magnesium ALT Alkaline Phosphatase Total Creatine Kinase CK-MB (CK-2) Rel Index Troponin T Albumin LDL Cholesterol Direct PTH Intact Salicylates Acetaminophen Crossmatch 05/08/19 05/08/19 05/09/19 06:09 16:55 03:27 WBC RBC Hgb Hct MCV MCH MCHC RDW Plt Count Lymph % (Auto) [place] % (Auto) Eos % (Auto) Baso % (Auto) Lymph # [place] # Eos # Baso # Seg Neutrophils % Seg Neuts % (Manual) Lymphocytes % (Manual) Eosinophils % (Manual) Seg Neutrophils # Lymphocytes # (Manual) Eosinophils # (Manual) PT INR D-Dimer POC ABG pH POC ABG pCO2 POC ABG pO2 ABG pO2 ABG HCO3 ABG Base Excess ABG Hemoglobin Oxyhemoglobin Sodium Potassium Chloride Carbon Dioxide BUN Creatinine Glucose POC Glucose 204 H 196 H 175 H Calcium Phosphorus Magnesium ALT Alkaline Phosphatase Total Creatine Kinase CK-MB (CK-2) Rel Index Troponin T Albumin LDL Cholesterol Direct PTH Intact Salicylates Acetaminophen Crossmatch 05/09/19 05/09/19 05/09/19 06:00 11:00 12:41 WBC 12.0 H RBC Hgb 9.7 L Hct 30.2 L MCV 83 L MCH 26 L MCHC RDW 20.1 H Plt Count Lymph % (Auto) 7.4 L [place] % (Auto) 7.6 H Eos % (Auto) Baso % (Auto) Lymph # 0.9 L [place] # 0.9 H Eos # Baso # Seg Neutrophils % 80.7 H Seg Neuts % (Manual) Lymphocytes % (Manual) Eosinophils % (Manual) Seg Neutrophils # 9.7 H Lymphocytes # (Manual) Eosinophils # (Manual) PT INR D-Dimer POC ABG pH POC ABG pCO2 POC ABG pO2 ABG pO2 ABG HCO3 ABG Base Excess ABG Hemoglobin Oxyhemoglobin Sodium Potassium Chloride Carbon Dioxide BUN Creatinine Glucose POC Glucose 172 H 168 H Calcium Phosphorus Magnesium ALT Alkaline Phosphatase Total Creatine Kinase CK-MB (CK-2) Rel Index Troponin T Albumin LDL Cholesterol Direct PTH Intact Salicylates Acetaminophen Crossmatch 05/09/19 05/10/19 05/10/19 17:45 01:26 06:07 WBC RBC Hgb Hct MCV MCH MCHC RDW Plt Count Lymph % (Auto) [place] % (Auto) Eos % (Auto) Baso % (Auto) Lymph # [place] # Eos # Baso # Seg Neutrophils % Seg Neuts % (Manual) Lymphocytes % (Manual) Eosinophils % (Manual) Seg Neutrophils # Lymphocytes # (Manual) Eosinophils # (Manual) PT INR D-Dimer POC ABG pH POC ABG pCO2 POC ABG pO2 ABG pO2 ABG HCO3 ABG Base Excess ABG Hemoglobin Oxyhemoglobin Sodium Potassium Chloride Carbon Dioxide BUN Creatinine Glucose POC Glucose 167 H 174 H 179 H Calcium Phosphorus Magnesium ALT Alkaline Phosphatase Total Creatine Kinase CK-MB (CK-2) Rel Index Troponin T Albumin LDL Cholesterol Direct PTH Intact Salicylates Acetaminophen Crossmatch 05/10/19 05/10/19 05/10/19 06:45 12:31 17:18 WBC RBC Hgb Hct MCV MCH MCHC RDW Plt Count Lymph % (Auto) [place] % (Auto) Eos % (Auto) Baso % (Auto) Lymph # [place] # Eos # Baso # Seg Neutrophils % Seg Neuts % (Manual) Lymphocytes % (Manual) Eosinophils % (Manual) Seg Neutrophils # Lymphocytes # (Manual) Eosinophils # (Manual) PT INR D-Dimer POC ABG pH POC ABG pCO2 POC ABG pO2 ABG pO2 ABG HCO3 ABG Base Excess ABG Hemoglobin Oxyhemoglobin Sodium 134 L Potassium Chloride 90.2 L Carbon Dioxide BUN 82 H Creatinine 4.1 H Glucose 195 H POC Glucose 201 H 197 H Calcium Phosphorus Magnesium ALT Alkaline Phosphatase Total Creatine Kinase CK-MB (CK-2) Rel Index Troponin T Albumin LDL Cholesterol Direct PTH Intact Salicylates Acetaminophen Crossmatch 05/11/19 05/11/19 05/11/19 00:20 06:30 17:38 WBC RBC Hgb Hct MCV MCH MCHC RDW Plt Count Lymph % (Auto) [place] % (Auto) Eos % (Auto) Baso % (Auto) Lymph # [place] # Eos # Baso # Seg Neutrophils % Seg Neuts % (Manual) Lymphocytes % (Manual) Eosinophils % (Manual) Seg Neutrophils # Lymphocytes # (Manual) Eosinophils # (Manual) PT INR D-Dimer POC ABG pH POC ABG pCO2 POC ABG pO2 ABG pO2 ABG HCO3 ABG Base Excess ABG Hemoglobin Oxyhemoglobin Sodium Potassium Chloride Carbon Dioxide BUN Creatinine Glucose POC Glucose 131 H 148 H 198 H Calcium Phosphorus Magnesium ALT Alkaline Phosphatase Total Creatine Kinase CK-MB (CK-2) Rel Index Troponin T Albumin LDL Cholesterol Direct PTH Intact Salicylates Acetaminophen Crossmatch 05/12/19 05/12/19 05/12/19 00:44 06:13 07:15 WBC RBC 3.32 L Hgb 8.7 L Hct 27.8 L MCV MCH 26 L MCHC 31 L RDW 19.8 H Plt Count Lymph % (Auto) 6.9 L [place] % (Auto) Eos % (Auto) 6.5 H Baso % (Auto) Lymph # 0.7 L [place] # Eos # 0.6 H Baso # Seg Neutrophils % 78.6 H Seg Neuts % (Manual) Lymphocytes % (Manual) Eosinophils % (Manual) Seg Neutrophils # 7.8 H Lymphocytes # (Manual) Eosinophils # (Manual) PT INR D-Dimer POC ABG pH POC ABG pCO2 POC ABG pO2 ABG pO2 ABG HCO3 ABG Base Excess ABG Hemoglobin Oxyhemoglobin Sodium Potassium Chloride Carbon Dioxide BUN Creatinine Glucose POC Glucose 170 H 133 H Calcium Phosphorus Magnesium ALT Alkaline Phosphatase Total Creatine Kinase CK-MB (CK-2) Rel Index Troponin T Albumin LDL Cholesterol Direct PTH Intact Salicylates Acetaminophen Crossmatch 05/12/19 05/12/19 05/12/19 07:15 11:17 17:37 WBC RBC Hgb Hct MCV MCH MCHC RDW Plt Count Lymph % (Auto) [place] % (Auto) Eos % (Auto) Baso % (Auto) Lymph # [place] # Eos # Baso # Seg Neutrophils % Seg Neuts % (Manual) Lymphocytes % (Manual) Eosinophils % (Manual) Seg Neutrophils # Lymphocytes # (Manual) Eosinophils # (Manual) PT INR D-Dimer POC ABG pH POC ABG pCO2 POC ABG pO2 ABG pO2 ABG HCO3 ABG Base Excess ABG Hemoglobin Oxyhemoglobin Sodium 135 L Potassium Chloride 94.2 L Carbon Dioxide BUN 59 H Creatinine 3.4 H Glucose 134 H POC Glucose 132 H 165 H Calcium Phosphorus Magnesium ALT Alkaline Phosphatase Total Creatine Kinase CK-MB (CK-2) Rel Index Troponin T Albumin LDL Cholesterol Direct PTH Intact Salicylates Acetaminophen Crossmatch 05/13/19 05/13/19 05/13/19 00:15 05:44 16:00 WBC RBC Hgb Hct MCV MCH MCHC RDW Plt Count Lymph % (Auto) [place] % (Auto) Eos % (Auto) Baso % (Auto) Lymph # [place] # Eos # Baso # Seg Neutrophils % Seg Neuts % (Manual) Lymphocytes % (Manual) Eosinophils % (Manual) Seg Neutrophils # Lymphocytes # (Manual) Eosinophils # (Manual) PT INR D-Dimer POC ABG pH POC ABG pCO2 POC ABG pO2 ABG pO2 ABG HCO3 ABG Base Excess ABG Hemoglobin Oxyhemoglobin Sodium Potassium Chloride Carbon Dioxide BUN Creatinine Glucose POC Glucose 144 H 133 H 221 H Calcium Phosphorus Magnesium ALT Alkaline Phosphatase Total Creatine Kinase CK-MB (CK-2) Rel Index Troponin T Albumin LDL Cholesterol Direct PTH Intact Salicylates Acetaminophen Crossmatch 05/14/19 05/14/19 05/14/19 06:44 11:56 16:42 WBC RBC Hgb Hct MCV MCH MCHC RDW Plt Count Lymph % (Auto) [place] % (Auto) Eos % (Auto) Baso % (Auto) Lymph # [place] # Eos # Baso # Seg Neutrophils % Seg Neuts % (Manual) Lymphocytes % (Manual) Eosinophils % (Manual) Seg Neutrophils # Lymphocytes # (Manual) Eosinophils # (Manual) PT INR D-Dimer POC ABG pH POC ABG pCO2 POC ABG pO2 ABG pO2 ABG HCO3 ABG Base Excess ABG Hemoglobin Oxyhemoglobin Sodium Potassium Chloride Carbon Dioxide BUN Creatinine Glucose POC Glucose 187 H 141 H 183 H Calcium Phosphorus Magnesium ALT Alkaline Phosphatase Total Creatine Kinase CK-MB (CK-2) Rel Index Troponin T Albumin LDL Cholesterol Direct PTH Intact Salicylates Acetaminophen Crossmatch 05/15/19 05/15/19 05/15/19 00:11 05:55 18:46 WBC RBC Hgb Hct MCV MCH MCHC RDW Plt Count Lymph % (Auto) [place] % (Auto) Eos % (Auto) Baso % (Auto) Lymph # [place] # Eos # Baso # Seg Neutrophils % Seg Neuts % (Manual) Lymphocytes % (Manual) Eosinophils % (Manual) Seg Neutrophils # Lymphocytes # (Manual) Eosinophils # (Manual) PT INR D-Dimer POC ABG pH POC ABG pCO2 POC ABG pO2 ABG pO2 ABG HCO3 ABG Base Excess ABG Hemoglobin Oxyhemoglobin Sodium Potassium Chloride Carbon Dioxide BUN Creatinine Glucose POC Glucose 169 H 119 H 173 H Calcium Phosphorus Magnesium ALT Alkaline Phosphatase Total Creatine Kinase CK-MB (CK-2) Rel Index Troponin T Albumin LDL Cholesterol Direct PTH Intact Salicylates Acetaminophen Crossmatch 05/16/19 05/16/19 05/16/19 00:18 06:17 12:47 WBC RBC Hgb Hct MCV MCH MCHC RDW Plt Count Lymph % (Auto) [place] % (Auto) Eos % (Auto) Baso % (Auto) Lymph # [place] # Eos # Baso # Seg Neutrophils % Seg Neuts % (Manual) Lymphocytes % (Manual) Eosinophils % (Manual) Seg Neutrophils # Lymphocytes # (Manual) Eosinophils # (Manual) PT INR D-Dimer POC ABG pH POC ABG pCO2 POC ABG pO2 ABG pO2 ABG HCO3 ABG Base Excess ABG Hemoglobin Oxyhemoglobin Sodium Potassium Chloride Carbon Dioxide BUN Creatinine Glucose POC Glucose 201 H 149 H 207 H Calcium Phosphorus Magnesium ALT Alkaline Phosphatase Total Creatine Kinase CK-MB (CK-2) Rel Index Troponin T Albumin LDL Cholesterol Direct PTH Intact Salicylates Acetaminophen Crossmatch 05/16/19 05/17/19 05/17/19 17:48 00:01 06:26 WBC RBC Hgb Hct MCV MCH MCHC RDW Plt Count Lymph % (Auto) [place] % (Auto) Eos % (Auto) Baso % (Auto) Lymph # [place] # Eos # Baso # Seg Neutrophils % Seg Neuts % (Manual) Lymphocytes % (Manual) Eosinophils % (Manual) Seg Neutrophils # Lymphocytes # (Manual) Eosinophils # (Manual) PT INR D-Dimer POC ABG pH POC ABG pCO2 POC ABG pO2 ABG pO2 ABG HCO3 ABG Base Excess ABG Hemoglobin Oxyhemoglobin Sodium Potassium Chloride Carbon Dioxide BUN Creatinine Glucose POC Glucose 183 H 176 H 177 H Calcium Phosphorus Magnesium ALT Alkaline Phosphatase Total Creatine Kinase CK-MB (CK-2) Rel Index Troponin T Albumin LDL Cholesterol Direct PTH Intact Salicylates Acetaminophen Crossmatch 05/17/19 05/17/19 05/18/19 12:19 17:45 00:30 WBC RBC Hgb Hct MCV MCH MCHC RDW Plt Count Lymph % (Auto) [place] % (Auto) Eos % (Auto) Baso % (Auto) Lymph # [place] # Eos # Baso # Seg Neutrophils % Seg Neuts % (Manual) Lymphocytes % (Manual) Eosinophils % (Manual) Seg Neutrophils # Lymphocytes # (Manual) Eosinophils # (Manual) PT INR D-Dimer POC ABG pH POC ABG pCO2 POC ABG pO2 ABG pO2 ABG HCO3 ABG Base Excess ABG Hemoglobin Oxyhemoglobin Sodium Potassium Chloride Carbon Dioxide BUN Creatinine Glucose POC Glucose 174 H 171 H 181 H Calcium Phosphorus Magnesium ALT Alkaline Phosphatase Total Creatine Kinase CK-MB (CK-2) Rel Index Troponin T Albumin LDL Cholesterol Direct PTH Intact Salicylates Acetaminophen Crossmatch 05/18/19 05/18/19 05/19/19 06:18 16:53 00:19 WBC RBC Hgb Hct MCV MCH MCHC RDW Plt Count Lymph % (Auto) [place] % (Auto) Eos % (Auto) Baso % (Auto) Lymph # [place] # Eos # Baso # Seg Neutrophils % Seg Neuts % (Manual) Lymphocytes % (Manual) Eosinophils % (Manual) Seg Neutrophils # Lymphocytes # (Manual) Eosinophils # (Manual) PT INR D-Dimer POC ABG pH POC ABG pCO2 POC ABG pO2 ABG pO2 ABG HCO3 ABG Base Excess ABG Hemoglobin Oxyhemoglobin Sodium Potassium Chloride Carbon Dioxide BUN Creatinine Glucose POC Glucose 165 H 166 H 207 H Calcium Phosphorus Magnesium ALT Alkaline Phosphatase Total Creatine Kinase CK-MB (CK-2) Rel Index Troponin T Albumin LDL Cholesterol Direct PTH Intact Salicylates Acetaminophen Crossmatch 05/19/19 05/19/19 05/19/19 01:00 01:00 05:15 WBC 11.6 H RBC 3.12 L Hgb 7.9 L Hct 25.9 L MCV 83 L MCH 25 L MCHC 31 L RDW 21.1 H Plt Count Lymph % (Auto) [place] % (Auto) Eos % (Auto) Baso % (Auto) Lymph # [place] # Eos # Baso # Seg Neutrophils % Seg Neuts % (Manual) Lymphocytes % (Manual) Eosinophils % (Manual) Seg Neutrophils # Lymphocytes # (Manual) Eosinophils # (Manual) PT INR D-Dimer POC ABG pH POC ABG pCO2 POC ABG pO2 ABG pO2 ABG HCO3 ABG Base Excess ABG Hemoglobin Oxyhemoglobin Sodium 135 L Potassium Chloride 93.6 L Carbon Dioxide BUN 64 H Creatinine 2.8 H Glucose 194 H POC Glucose 176 H Calcium Phosphorus Magnesium ALT Alkaline Phosphatase Total Creatine Kinase CK-MB (CK-2) Rel Index Troponin T Albumin LDL Cholesterol Direct PTH Intact Salicylates Acetaminophen Crossmatch 05/19/19 05/19/19 05/20/19 11:21 18:48 00:01 WBC RBC Hgb Hct MCV MCH MCHC RDW Plt Count Lymph % (Auto) [place] % (Auto) Eos % (Auto) Baso % (Auto) Lymph # [place] # Eos # Baso # Seg Neutrophils % Seg Neuts % (Manual) Lymphocytes % (Manual) Eosinophils % (Manual) Seg Neutrophils # Lymphocytes # (Manual) Eosinophils # (Manual) PT INR D-Dimer POC ABG pH POC ABG pCO2 POC ABG pO2 ABG pO2 ABG HCO3 ABG Base Excess ABG Hemoglobin Oxyhemoglobin Sodium Potassium Chloride Carbon Dioxide BUN Creatinine Glucose POC Glucose 162 H 140 H 200 H Calcium Phosphorus Magnesium ALT Alkaline Phosphatase Total Creatine Kinase CK-MB (CK-2) Rel Index Troponin T Albumin LDL Cholesterol Direct PTH Intact Salicylates Acetaminophen Crossmatch 05/20/19 05/20/19 05/21/19 05:58 17:50 00:43 WBC RBC Hgb Hct MCV MCH MCHC RDW Plt Count Lymph % (Auto) [place] % (Auto) Eos % (Auto) Baso % (Auto) Lymph # [place] # Eos # Baso # Seg Neutrophils % Seg Neuts % (Manual) Lymphocytes % (Manual) Eosinophils % (Manual) Seg Neutrophils # Lymphocytes # (Manual) Eosinophils # (Manual) PT INR D-Dimer POC ABG pH POC ABG pCO2 POC ABG pO2 ABG pO2 ABG HCO3 ABG Base Excess ABG Hemoglobin Oxyhemoglobin Sodium Potassium Chloride Carbon Dioxide BUN Creatinine Glucose POC Glucose 132 H 154 H 165 H Calcium Phosphorus Magnesium ALT Alkaline Phosphatase Total Creatine Kinase CK-MB (CK-2) Rel Index Troponin T Albumin LDL Cholesterol Direct PTH Intact Salicylates Acetaminophen Crossmatch 05/21/19 05/21/19 06:06 11:15 WBC RBC Hgb Hct MCV MCH MCHC RDW Plt Count Lymph % (Auto) [place] % (Auto) Eos % (Auto) Baso % (Auto) Lymph # [place] # Eos # Baso # Seg Neutrophils % Seg Neuts % (Manual) Lymphocytes % (Manual) Eosinophils % (Manual) Seg Neutrophils # Lymphocytes # (Manual) Eosinophils # (Manual) PT INR D-Dimer POC ABG pH POC ABG pCO2 POC ABG pO2 ABG pO2 ABG HCO3 ABG Base Excess ABG Hemoglobin Oxyhemoglobin Sodium Potassium Chloride Carbon Dioxide BUN Creatinine Glucose POC Glucose 178 H 218 H Calcium Phosphorus Magnesium ALT Alkaline Phosphatase Total Creatine Kinase CK-MB (CK-2) Rel Index Troponin T Albumin LDL Cholesterol Direct PTH Intact Salicylates Acetaminophen Crossmatch
--- NOTE | 2019-05-21 13:45 | Progress Note ---
Assessment and Plan Assessment: * End stage renal disease (outpatient TTS schedule) * Acute hypoxic respiratory failure s/p trach * s/p KEON pneumonia --Sputum cx: MDR Acinetobacter * Cardiomyopathy - EF 35-40% * Atrial fibrillation * History of CVA * Anemia secondary to ESRD * Secondary hyperparathyroidism * Decubitis ulcer Plan * Continue HD MWF via [facility] AVG * ID following - recommendations reviewed * Nutrition per primary team * Dose medications for renal function * Epogen 20k TIW; obtain iron stores at next dialysis treatment * Overall prognosis remains poor; family declines hospice; will continue to follow for ESRD needs while inpatient Subjective Date of service: 05/21/19 Principal diagnosis: Respiratory failure, acute on chronic systolic HF, ESRD Interval history: No acute events overnight. Afebrile for more than 48h. Objective - Vital Signs Vital signs: Vital Signs - 12hr 05/21/19 05/21/19 05/21/19 05:40 09:30 09:45 Temperature 98.2 F Pulse Rate 123 H Pulse Rate [ 117 H Anterior Bilateral Throughout] Respiratory 16 Rate Respiratory 20 Rate [Anterior Bilateral Throughout] Blood Pressure 123/63 Blood Pressure [Right] O2 Sat by Pulse 100 100 Oximetry O2 Sat by Pulse Oximetry [ Assessment] 05/21/19 05/21/19 05/21/19 11:31 12:00 12:26 Temperature 98.1 F Pulse Rate 119 H Pulse Rate [ Anterior Bilateral Throughout] Respiratory 20 Rate Respiratory Rate [Anterior Bilateral Throughout] Blood Pressure Blood Pressure 128/56 [Right] O2 Sat by Pulse 96 100 Oximetry O2 Sat by Pulse Oximetry [ Assessment] 05/21/19 12:29 Temperature Pulse Rate Pulse Rate [ Anterior Bilateral Throughout] Respiratory Rate Respiratory Rate [Anterior Bilateral Throughout] Blood Pressure Blood Pressure [Right] O2 Sat by Pulse Oximetry O2 Sat by Pulse 100 Oximetry [ Assessment] - General Appearance General appearance: frail EENT: ATNC Neck: other (trach) Respiratory: Present: Decreased Breath Sounds Cardiology: regular, S1S2 Gastrointestinal: other (PEG, ostomy) Integumentary: no rash Musculoskeletal: other (no edema) Psychiatric: cooperative - Lab 05/19/19 01:00 05/19/19 01:00 Most recent lab results ABG pH 7.424 pH Units (7.350-7.450) 03/19/19 04:23 ABG pCO2 48.0 mm Hg 03/19/19 04:23 ABG pO2 78.3 mm Hg (80.0-90.0) L 03/19/19 04:23 ABG HCO3 30.7 mmol/L (20.0-26.0) H 03/19/19 04:23 ABG O2 Saturation 97.0 % (95.0-99.0) 03/19/19 04:23 Calcium 9.5 mg/dL (8.4-10.2) 05/19/19 01:00 Phosphorus 4.30 mg/dL (2.5-4.5) D 03/31/19 10:26 Magnesium 2.70 mg/dL (1.7-2.3) H 03/30/19 10:13 Medications & Allergies - Medications Allergies/Adverse Reactions: Allergies haloperidol [From Haldol] Adverse Reaction (Verified 03/13/18 12:10) Unknown haloperidol lactate [From Haldol] Adverse Reaction (Verified 03/13/18 12:10) Unknown Home Medications: Home Medications Medication Instructions Recorded Confirmed Last Taken Type risperiDONE [RisperDAL] 1 mg PO QAM 03/13/18 02/21/19 Unknown History Sertraline [Zoloft] 100 mg PO QDAY 08/26/18 02/21/19 Unknown History Polyethylene Glycol 3350 [Miralax 17 gm PO QDAY #30 packet 11/05/18 02/21/19 Unknown Rx 3350] Aspirin EC [Halfprin EC] 81 mg PO DAILY #30 11/19/18 02/21/19 Unknown Rx Docusate Sodium [Colace CAP] 100 mg PO BID #60 11/19/18 02/21/19 Unknown Rx Folic Acid [Folvite] 1 mg PO DAILY #30 tab 11/19/18 02/21/19 Unknown Rx Famotidine [Pepcid] 20 mg PO DAILY tablet 12/08/18 02/21/19 Unknown Rx Gabapentin 100 mg PO QHS capsule 12/08/18 02/21/19 Unknown Rx Metoprolol [Lopressor TAB] 50 mg PO BID 30 Days tablet 12/08/18 02/21/19 Unk nown Rx Sevelamer Carbonate [Renvela] 800 mg PO TIDWM tablet 12/08/18 02/21/19 Unknown Rx hydrALAZINE [Apresoline TAB] 100 mg PO Q8HR #120 tablet 12/08/18 02/21/19 Unknown Rx Acetaminophen [Acetaminophen TAB] 650 mg PO Q12H PRN 12/15/18 02/21/19 Unknown History Glucagon,Human Recombinant 1 mg IJ Q15MIN PRN 12/15/18 02/21/19 Unknown History [Glucagon Emergency Kit] Insulin Aspart [NovoLOG 100 See Protocol SQ QWEEK 12/15/18 02/21/19 Unknown History UNITS/ML VIAL] Active Medications: Generic Name Dose Route Start Last Admin Trade Name Freq PRN Reason Stop Dose Admin Acetaminophen 650 mg 05/18/19 23:33 05/19/19 10:55 Tylenol PO 650 mg Q6HR PRN Administration PAIN Albuterol/Ipratropium 1 ampul 02/24/19 20:00 05/21/19 09:30 Duoneb *Not For Prn Use* IH 1 ampul TIDRT SANCHEZ Administration Lipase/Protease/Amylase 1 each 04/10/19 15:16 Pancreaze 10,500 Unit FEEDTUBE PRN PRN For Clogged Feeding Tube Epoetin Solitario 20,000 unit 03/24/19 11:17 05/20/19 12:08 Procrit IV 20,000 unit UMA PRN Administration hemodialysis Famotidine 20 mg 02/23/19 10:00 05/21/19 11:06 Pepcid PO 20 mg DAILY SANCHEZ Administration Sodium Chloride 100 mls @ 999 mls/hr 05/13/19 12:45 Nacl 0.9% IV UMA PRN Hypotension Insulin Human Regular 0 units 02/26/19 12:00 05/21/19 11:37 Humulin R SUB-Q 2 units Q6HR SANCHEZ Administration Protocol Metoprolol Tartrate 2.5 mg 02/28/19 12:06 03/15/19 05:15 Lopressor IV 2.5 mg Q4HR PRN Administration Tachycardia Risperidone 1 mg 02/25/19 13:00 05/21/19 11:06 Risperdal PO 1 mg DAILY SANCHEZ Administration Sertraline HCl 100 mg 02/25/19 13:00 05/21/19 11:06 Zoloft PO 100 mg DAILY SANCHEZ Administration Simple Syrup 15 ml 04/10/19 15:16 Simple Syrup FEEDTUBE PRN PRN Hypoglycemia Simple Syrup 30 ml 04/10/19 15:16 Simple Syrup FEEDTUBE PRN PRN Hypoglycemia Sodium Bicarbonate 325 mg 04/10/19 15:16 Sodium Bicarbonate FEEDTUBE PRN PRN For Clogged Feeding Tube Sodium Hypochlorite 1 applic 04/01/19 13:00 05/21/19 11:07 Dakin's Half Strength TP 1 applicatio BID SANCHEZ Administration
--- NOTE | 2019-05-21 15:07 | Progress Note ---
Assessment and Plan Assessment and plan: Patient is a 63-year-old -Greek man from [facility] with a plethora of co-morbidities including blindness, CVA, CHF, PPM/ICD, loop recorder since 2012 that is MRI compatible, IDDM type 2, sepsis left foot ulcer, afib, ESRD with complications on HD TTS, hypertension, AOCD and GERD who presented to the ED with hypotensive after intubation in the emergency room., diagnosed with fluid overload, pleural effusion. Patient has had recurrent admission in the hospital for similar reason and was recently discharged from the hospital following treatment of Severe Sepsis due to Necrotizing Unstagable sacral decubitus ulcer with ostemomylitis, expected to complete abx on discharge till 02/16/19. Fever has resolved mgt per ID, continue to monitor off antibiotics Trach and peg done HR control improved with change in BB. Acute respiratory failure on mechanical ventilator >96 hrs Trach is capped Acute pulmonary edema, fluid overload on CXR Fluid management with dialysis Necrotizing Unstagable sacral decubitus ulcer with ostemomyelitis Wound care, Dilated CMP Cardiomyiopathy EF 35-40% Continue diuresis PPM/ICD Acute encephalopathy, probably metabolic or toxic Continues on Mechanical ventilator. ESRD on hemodialysis nephrology following Vascular eval. done re: LUE AV graft, see note Bilateral pleural effusions Anticipate improvement with Permanent atrial fibrillation and flutter Not on anticoagulation because of anemia thrombocytopenia Rate control. 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 -Pt is s/p x1 DDVAP DVT prophylaxis Lovenox DNR poor prognosis Disposition, needs SNF with dialysis chair time History Interval history: no fevers remains demented no vomiting, no agitation, no seizures Hospitalist Physical - Physical exam Narrative exam: Constitutional: no acute distress, opens eyes, says hello Eyes: non-icteric ENT: oropharynx moist Neck: supple Effort: normal Ascultation: Bilateral: other (coarse BS bilaterally) Percussion: Bilateral: not dull Cardiovascular: regular rate and rhythm (no mrg) Gastrointestinal: normoactive bowel sounds, soft, non-tender, non-distended, other (ostomy in place, brown stool) Extremities: no cyanosis, no edema, pink and warm Neurologic: other (mild weakness LUE, o/w nonfocal), demented, turns and say hello Psychiatric: other (unable to assess) SKIN; Left 5th finger, stage 4 pressure ulcer,Left heel, deep tissue injury, Sacrum, stage 4 pressure ulcer POA - Constitutional Vitals: Temp Pulse Resp BP Pulse Ox 98.1 F 102 H 20 128/56 100 05/21/19 11:31 05/21/19 14:26 05/21/19 14:26 05/21/19 12:00 05/21/19 12:29 General appearance: Present: no acute distress, other (T peace). Absent: well- nourished Results - Labs CBC & Chem 7: 05/19/19 01:00 05/19/19 01:00 Labs: Laboratory Last Values WBC 11.6 K/mm3 (4.5-11.0) H 05/19/19 01:00 RBC 3.12 M/mm3 (3.65-5.03) L 05/19/19 01:00 Hgb 7.9 gm/dl (11.8-15.2) L 05/19/19 01:00 Hct 25.9 % (35.5-45.6) L 05/19/19 01:00 MCV 83 fl (84-94) L 05/19/19 01:00 MCH 25 pg (28-32) L 05/19/19 01:00 MCHC 31 % (32-34) L 05/19/19 01:00 RDW 21.1 % (13.2-15.2) H 05/19/19 01:00 Plt Count 386 K/mm3 (140-440) 05/19/19 01:00 Lymph % (Auto) 6.9 % (13.4-35.0) L 05/12/19 07:15 [place] % (Auto) 7.3 % (0.0-7.3) 05/12/19 07:15 Eos % (Auto) 6.5 % (0.0-4.3) H 05/12/19 07:15 Baso % (Auto) 0.7 % (0.0-1.8) 05/12/19 07:15 Lymph # 0.7 K/mm3 (1.2-5.4) L 05/12/19 07:15 [place] # 0.7 K/mm3 (0.0-0.8) 05/12/19 07:15 Eos # 0.6 K/mm3 (0.0-0.4) H 05/12/19 07:15 Baso # 0.1 K/mm3 (0.0-0.1) 05/12/19 07:15 Add Manual Diff Complete 03/21/19 06:30 Total Counted 100 03/21/19 06:30 Seg Neutrophils % 78.6 % (40.0-70.0) H 05/12/19 07:15 Seg Neuts % (Manual) 81.0 % (40.0-70.0) H 03/21/19 06:30 Band Neutrophils % 0 % 03/21/19 06:30 Lymphocytes % (Manual) 8.0 % (13.4-35.0) L 03/21/19 06:30 Reactive Lymphs % (Man) 0 % 03/21/19 06:30 Monocytes % (Manual) 1.0 % (0.0-7.3) 03/21/19 06:30 Eosinophils % (Manual) 8.0 % (0.0-4.3) H 03/21/19 06:30 Basophils % (Manual) 1.0 % (0.0-1.8) 03/21/19 06:30 Metamyelocytes % 1.0 % 03/21/19 06:30 Myelocytes % 0 % 03/21/19 06:30 Promyelocytes % 0 % 03/21/19 06:30 Blast Cells % 0 % 03/21/19 06:30 Nucleated RBC % Not Reportable 03/21/19 06:30 Seg Neutrophils # 7.8 K/mm3 (1.8-7.7) H 05/12/19 07:15 Seg Neutrophils # Man 6.7 K/mm3 (1.8-7.7) 03/21/19 06:30 Band Neutrophils # 0.0 K/mm3 03/21/19 06:30 Lymphocytes # (Manual) 0.7 K/mm3 (1.2-5.4) L 03/21/19 06:30 Abs React Lymphs (Man) 0.0 K/mm3 03/21/19 06:30 Monocytes # (Manual) 0.1 K/mm3 (0.0-0.8) 03/21/19 06:30 Eosinophils # (Manual) 0.7 K/mm3 (0.0-0.4) H 03/21/19 06:30 Basophils # (Manual) 0.1 K/mm3 (0.0-0.1) 03/21/19 06:30 Metamyelocytes # 0.1 K/mm3 03/21/19 06:30 Myelocytes # 0.0 K/mm3 03/21/19 06:30 Promyelocytes # 0.0 K/mm3 03/21/19 06:30 Blast Cells # 0.0 K/mm3 03/21/19 06:30 WBC Morphology Not Reportable 03/21/19 06:30 Hypersegmented Neuts Not Reportable 03/21/19 06:30 Hyposegmented Neuts Not Reportable 03/21/19 06:30 Hypogranular Neuts Not Reportable 03/21/19 06:30 Smudge Cells Not Reportable 03/21/19 06:30 Toxic Granulation Not Reportable 03/21/19 06:30 Toxic Vacuolation Not Reportable 03/21/19 06:30 Dohle Bodies Not Reportable 03/21/19 06:30 Pelger-Huet Anomaly Not Reportable 03/21/19 06:30 Tramaine Rods Not Reportable 03/21/19 06:30 Platelet Estimate Consistent w auto 03/21/19 06:30 Clumped Platelets Not Reportable 03/21/19 06:30 Plt Clumps, EDTA Not Reportable 03/21/19 06:30 Large Platelets Not Reportable 03/21/19 06:30 Giant Platelets Not Reportable 03/21/19 06:30 Platelet Satelliting Not Reportable 03/21/19 06:30 Plt Morphology Comment Not Reportable 03/21/19 06:30 RBC Morphology Not Reportable 03/21/19 06:30 Dimorphic RBCs Not Reportable 03/21/19 06:30 Polychromasia Not Reportable 03/21/19 06:30 Hypochromasia Few 03/21/19 06:30 Poikilocytosis Few 03/21/19 06:30 Anisocytosis Few 03/21/19 06:30 Microcytosis Not Reportable 03/21/19 06:30 Macrocytosis Not Reportable 03/21/19 06:30 Spherocytes Not Reportable 03/21/19 06:30 Pappenheimer Bodies Not Reportable 03/21/19 06:30 Sickle Cells Not Reportable 03/21/19 06:30 Target Cells 1+ 03/21/19 06:30 Tear Drop Cells Not Reportable 03/21/19 06:30 Ovalocytes Few 03/21/19 06:30 Helmet Cells Not Reportable 03/21/19 06:30 Zhou-Galva Bodies Not Reportable 03/21/19 06:30 [place] Rings Not Reportable 03/21/19 06:30 Hebert Cells Not Reportable 03/21/19 06:30 Bite Cells Not Reportable 03/21/19 06:30 Crenated Cell Not Reportable 03/21/19 06:30 Elliptocytes Not Reportable 03/21/19 06:30 Acanthocytes (Spur) Not Reportable 03/21/19 06:30 Rouleaux Not Reportable 03/21/19 06:30 Hemoglobin C Crystals Not Reportable 03/21/19 06:30 Schistocytes Not Reportable 03/21/19 06:30 Malaria parasites Not Reportable 03/21/19 06:30 Jose Juan Bodies Not Reportable 03/21/19 06:30 Hem Pathologist Commnt No 03/21/19 06:30 PT 16.3 Sec. (12.2-14.9) H 03/01/19 09:39 INR 1.35 (0.87-1.13) H 03/01/19 09:39 APTT 33.7 Sec. (24.2-36.6) 02/21/19 18:30 D-Dimer 2987.82 ng/mlDDU (0-234) H 02/22/19 05:54 POC ABG pH 7.510 (7.35-7.45) H 03/18/19 06:38 ABG pH 7.424 pH Units (7.350-7.450) 03/19/19 04:23 POC ABG pCO2 38.9 (35-45) 03/18/19 06:38 ABG pCO2 48.0 mm Hg 03/19/19 04:23 POC ABG pO2 164 (80-105) H 03/18/19 06:38 ABG pO2 78.3 mm Hg (80.0-90.0) L 03/19/19 04:23 POC ABG HCO3 31.0 (22-26 mml/L) 03/18/19 06:38 ABG HCO3 30.7 mmol/L (20.0-26.0) H 03/19/19 04:23 POC ABG Total CO2 32 (23-27mmol/L) 03/18/19 06:38 POC ABG O2 Sat 100 03/18/19 06:38 ABG O2 Saturation 97.0 % (95.0-99.0) 03/19/19 04:23 ABG O2 Content 7.9 (0.0-44) 03/19/19 04:23 POC ABG Base Excess 8 ((-2) - (+3)mmol/L) 03/18/19 06:38 ABG Base Excess 5.8 mmol/L (-2.0-3.0) H 03/19/19 04:23 ABG Hemoglobin 5.8 gm/dl (14.0-18.0) L 03/19/19 04:23 ABG Carboxyhemoglobin 2.0 % (0.0-5.0) 03/19/19 04:23 ABG Methemoglobin 0.4 % (0.0-1.5) 03/19/19 04:23 Oxyhemoglobin 94.6 % (95.0-99.0) L 03/19/19 04:23 FiO2 35 % 03/19/19 04:23 Sodium 135 mmol/L (137-145) L 05/19/19 01:00 Potassium 3.9 mmol/L (3.6-5.0) 05/19/19 01:00 Chloride 93.6 mmol/L (98-107) L 05/19/19 01:00 Carbon Dioxide 29 mmol/L (22-30) 05/19/19 01:00 Anion Gap 16 mmol/L 05/19/19 01:00 BUN 64 mg/dL (9-20) H 05/19/19 01:00 Creatinine 2.8 mg/dL (0.8-1.5) H 05/19/19 01:00 Estimated GFR 28 ml/min 05/19/19 01:00 BUN/Creatinine Ratio 23 % 05/19/19 01:00 Glucose 194 mg/dL (75-100) H 05/19/19 01:00 POC Glucose 218 (70-105) H 05/21/19 11:15 Lactic Acid 1.00 mmol/L (0.7-2.0) 02/21/19 20:58 Calcium 9.5 mg/dL (8.4-10.2) 05/19/19 01:00 Phosphorus 4.30 mg/dL (2.5-4.5) D 03/31/19 10:26 Magnesium 2.70 mg/dL (1.7-2.3) H 03/30/19 10:13 Total Bilirubin 0.20 mg/dL (0.1-1.2) 03/30/19 10:13 AST 16 units/L (5-40) 03/30/19 10:13 ALT 11 units/L (7-56) 03/30/19 10:13 Alkaline Phosphatase 185 units/L (35-129) H 03/30/19 10:13 Ammonia 28.0 umol/L (25-60) 02/21/19 20:04 Total Creatine Kinase 64 units/L (55-170) 02/22/19 03:42 CK-MB (CK-2) 3.7 ng/mL (0.0-4.0) 02/22/19 03:42 CK-MB (CK-2) Rel Index 5.7 (0-4) H 02/22/19 03:42 Troponin T 0.193 ng/mL (0.00-0.029) H* 02/22/19 03:42 Total Protein 6.9 g/dL (6.3-8.2) 03/30/19 10:13 Albumin 2.6 g/dL (3.9-5) L 03/30/19 10:13 Albumin/Globulin Ratio 0.6 % 03/30/19 10:13 Triglycerides 51 mg/dL (2-149) 02/21/19 18:30 Cholesterol 82 mg/dL (50-199) 02/21/19 18:30 LDL Cholesterol Direct 36 mg/dL (50-130) L 02/21/19 18:30 HDL Cholesterol 40 mg/dL (40-59) 02/21/19 18:30 Cholesterol/HDL Ratio 2.05 % 02/21/19 18:30 TSH 2.760 mlU/mL (0.270-4.200) 02/21/19 20:04 PTH Intact 267.6 pg/mL (15-65) H 03/02/19 05:15 Salicylates < 0.3 mg/dL (2.8-20.0) L 02/21/19 20:04 Acetaminophen < 5.0 ug/mL (10.0-30.0) L 02/21/19 20:04 Hepatitis A IgM Ab Non-reactive (NonReactive) 04/30/19 14:11 Hep Bs Antigen Non-reactive (Negative) 04/30/19 14:11 Hep B Core IgM Ab Non-reactive (NonReactive) 04/30/19 14:11 Hepatitis C Antibody Non-reactive (NonReactive) 04/30/19 14:11 Blood Type O POSITIVE 05/04/19 12:55 Antibody Screen Negative 05/04/19 12:55 Crossmatch See Detail 05/04/19 12:55 Active Medications - Current Medications Current Medications: Generic Name Dose Route Start Last Admin Trade Name Freq PRN Reason Stop Dose Admin Acetaminophen 650 mg 05/18/19 23:33 05/19/19 10:55 Tylenol PO 650 mg Q6HR PRN Administration PAIN Albuterol/Ipratropium 1 ampul 02/24/19 20:00 05/21/19 14:00 Duoneb *Not For Prn Use* IH 1 ampul TIDRT SANCHEZ Administration Lipase/Protease/Amylase 1 each 04/10/19 15:16 Pancreaze 10,500 Unit FEEDTUBE PRN PRN For Clogged Feeding Tube Epoetin Solitario 20,000 unit 03/24/19 11:17 05/20/19 12:08 Procrit IV 20,000 unit UMA PRN Administration hemodialysis Famotidine 20 mg 02/23/19 10:00 05/21/19 11:06 Pepcid PO 20 mg DAILY SANCHEZ Administration Sodium Chloride 100 mls @ 999 mls/hr 05/13/19 12:45 Nacl 0.9% IV UMA PRN Hypotension Insulin Human Regular 0 units 02/26/19 12:00 05/21/19 11:37 Humulin R SUB-Q 2 units Q6HR SANCHEZ Administration Protocol Metoprolol Tartrate 2.5 mg 02/28/19 12:06 03/15/19 05:15 Lopressor IV 2.5 mg Q4HR PRN Administration Tachycardia Risperidone 1 mg 02/25/19 13:00 05/21/19 11:06 Risperdal PO 1 mg DAILY SANCHEZ Administration Sertraline HCl 100 mg 02/25/19 13:00 05/21/19 11:06 Zoloft PO 100 mg DAILY SANCHEZ Administration Simple Syrup 15 ml 04/10/19 15:16 Simple Syrup FEEDTUBE PRN PRN Hypoglycemia Simple Syrup 30 ml 04/10/19 15:16 Simple Syrup FEEDTUBE PRN PRN Hypoglycemia Sodium Bicarbonate 325 mg 04/10/19 15:16 Sodium Bicarbonate FEEDTUBE PRN PRN For Clogged Feeding Tube Sodium Hypochlorite 1 applic 04/01/19 13:00 05/21/19 11:07 Dakin's Half Strength TP 1 applicatio BID SANCHEZ Administration Nutrition/Malnutrition Assess - Dietary Evaluation Nutrition/Malnutrition Findings: Nutrition Notes Start: 02/22/19 12:51 Freq: Status: Active Protocol: Document 05/21/19 12:03 DW (Rec: 05/21/19 12:13 DW [id number]) Co-Sign 05/21/19 12:03 Nutrition Notes Initial or Follow up Reassessment Current Diagnosis CKD (stage V CKD),Diabetes, Hypertension,Heart Failure Other Pertinent Diagnosis Sacral PU, ESRD on HD (T/Thurs /Sat), Schizophrenia,Blind in L eye,S/P trach Current Diet Nepro at 50 ml/hr w/Abhilash BID Labs/Tests POC Glu: 218 Pertinent Medications Reviewed Height 5 ft 10 in Weight 74.7 kg [place] Body Weight (kg) 75.45 BMI 23.6 Weight change and time frame Wt loss noted. Likely d/t fluid change. Subjective/Other Information Upon arrival noted tube feed was running at goal. Per nurse pt is receiving Abhilash Percent of energy/protein needs met: 100%/100% Burn Absent Trauma Absent Minimum of two criteria No #2 Nutrition Diagnosis Increased nutrient needs ( specify in comment below) Diagnosis Progress(for reassessment Continues documentation) #1 Nutrition Diagnosis Inadequate oral intake Diagnosis Progress(for reassessment Continues documentation) Is patient on ventilator? No Is Patient Ambulatory and/or Out of Bed No REE-(Sutton-St. Jeor-confined to bed) 1857.144 Kcal/Kg value to use for calculation 32 Approximate Energy Requirements Using 2390 kcal/Kg Calculation Used for Recommendations Kcal/kg Additional Notes PRO: 82-103g/day(1.2-1.5g/kg) Fluid: per MD Nutrition Intervention Change Diet Order: Continue TF Nutrition Support: Nepro with Carbsteady 1.8 at 50 ml/hr Flush 200 ml q4hr Kcal 2,160 Protein (gm) 97 Fluid (mL) 872 Add Supplement/Snack (indicate name/kcal Abhilash BID /protein ) Provides kCal: 190 Provides Protein (gm) 5 Goal #1 Continue to meet at least 75% of calorie and protein needs via TF Anticipated Discharge Needs: TF Follow-Up By: 05/28/19 Additional Comments F/U for TF tolereance and Abhilash
[2019-05-22] MEDS: INSULIN REGULAR, HUMAN 100 UNITS/1 ML SUB-Q SCH ×4 (06:04→18:38)
[2019-05-22] MEDS: IPRATROPIUM/ALBUTEROL SULFATE 3 ML AMPUL.NEB IH SCH ×3 (08:40→21:51)
--- NOTE | 2019-05-22 10:14 | Progress Note ---
Assessment and Plan Assessment and plan: Patient is a 63-year-old -[place] man from [facility] with a plethora of co-morbidities including blindness, CVA, CHF, PPM/ICD, loop recorder since 2012 that is MRI compatible, IDDM type 2, sepsis left foot ulcer, afib, ESRD with complications on HD TTS, hypertension, AOCD and GERD who presented to the ED with hypotensive after intubation in the emergency room., diagnosed with fluid overload, pleural effusion. Patient has had recurrent admission in the hospital for similar reason and was recently discharged from the hospital following treatment of Severe Sepsis due to Necrotizing Unstagable sacral decubitus ulcer with ostemomylitis, expected to complete abx on discharge till 02/16/19. Fever has resolved mgt per ID, continue to monitor off antibiotics Trach and peg done HR control improved with change in BB. Acute respiratory failure on mechanical ventilator >96 hrs Trach is capped Acute pulmonary edema, fluid overload on CXR Fluid management with dialysis Necrotizing Unstagable sacral decubitus ulcer with ostemomyelitis Wound care, Dilated CMP Cardiomyiopathy EF 35-40% Continue diuresis PPM/ICD Acute encephalopathy, probably metabolic or toxic Continues on Mechanical ventilator. ESRD on hemodialysis nephrology following Vascular eval. done re: LUE AV graft, see note Bilateral pleural effusions Anticipate improvement with Permanent atrial fibrillation and flutter Not on anticoagulation because of anemia thrombocytopenia Rate control. 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 -Pt is s/p x1 DDVAP DVT prophylaxis Lovenox DNR poor prognosis Disposition, needs SNF with dialysis chair time History Interval history: no fevers remains demented no vomiting, no agitation, no seizures Hospitalist Physical - Physical exam Narrative exam: Constitutional: no acute distress, opens eyes, says hello Eyes: non-icteric ENT: oropharynx moist Neck: supple Effort: normal Ascultation: Bilateral: other (coarse BS bilaterally) Percussion: Bilateral: not dull Cardiovascular: regular rate and rhythm (no mrg) Gastrointestinal: normoactive bowel sounds, soft, non-tender, non-distended, other (ostomy in place, brown stool) Extremities: no cyanosis, no edema, pink and warm Neurologic: other (mild weakness LUE, o/w nonfocal), demented, turns and say hello Psychiatric: other (unable to assess) SKIN; Left 5th finger, stage 4 pressure ulcer,Left heel, deep tissue injury, Sacrum, stage 4 pressure ulcer POA - Constitutional Vitals: Temp Pulse Resp BP Pulse Ox 98.0 F 106 H 18 127/57 99 05/22/19 04:33 05/22/19 08:40 05/22/19 09:09 05/22/19 04:33 05/22/19 09:13 General appearance: Present: no acute distress, other (T peace). Absent: well- nourished Results - Labs CBC & Chem 7: 05/19/19 01:00 05/19/19 01:00 Labs: Laboratory Last Values WBC 11.6 K/mm3 (4.5-11.0) H 05/19/19 01:00 RBC 3.12 M/mm3 (3.65-5.03) L 05/19/19 01:00 Hgb 7.9 gm/dl (11.8-15.2) L 05/19/19 01:00 Hct 25.9 % (35.5-45.6) L 05/19/19 01:00 MCV 83 fl (84-94) L 05/19/19 01:00 MCH 25 pg (28-32) L 05/19/19 01:00 MCHC 31 % (32-34) L 05/19/19 01:00 RDW 21.1 % (13.2-15.2) H 05/19/19 01:00 Plt Count 386 K/mm3 (140-440) 05/19/19 01:00 Lymph % (Auto) 6.9 % (13.4-35.0) L 05/12/19 07:15 [place] % (Auto) 7.3 % (0.0-7.3) 05/12/19 07:15 Eos % (Auto) 6.5 % (0.0-4.3) H 05/12/19 07:15 Baso % (Auto) 0.7 % (0.0-1.8) 05/12/19 07:15 Lymph # 0.7 K/mm3 (1.2-5.4) L 05/12/19 07:15 [place] # 0.7 K/mm3 (0.0-0.8) 05/12/19 07:15 Eos # 0.6 K/mm3 (0.0-0.4) H 05/12/19 07:15 Baso # 0.1 K/mm3 (0.0-0.1) 05/12/19 07:15 Add Manual Diff Complete 03/21/19 06:30 Total Counted 100 03/21/19 06:30 Seg Neutrophils % 78.6 % (40.0-70.0) H 05/12/19 07:15 Seg Neuts % (Manual) 81.0 % (40.0-70.0) H 03/21/19 06:30 Band Neutrophils % 0 % 03/21/19 06:30 Lymphocytes % (Manual) 8.0 % (13.4-35.0) L 03/21/19 06:30 Reactive Lymphs % (Man) 0 % 03/21/19 06:30 Monocytes % (Manual) 1.0 % (0.0-7.3) 03/21/19 06:30 Eosinophils % (Manual) 8.0 % (0.0-4.3) H 03/21/19 06:30 Basophils % (Manual) 1.0 % (0.0-1.8) 03/21/19 06:30 Metamyelocytes % 1.0 % 03/21/19 06:30 Myelocytes % 0 % 03/21/19 06:30 Promyelocytes % 0 % 03/21/19 06:30 Blast Cells % 0 % 03/21/19 06:30 Nucleated RBC % Not Reportable 03/21/19 06:30 Seg Neutrophils # 7.8 K/mm3 (1.8-7.7) H 05/12/19 07:15 Seg Neutrophils # Man 6.7 K/mm3 (1.8-7.7) 03/21/19 06:30 Band Neutrophils # 0.0 K/mm3 03/21/19 06:30 Lymphocytes # (Manual) 0.7 K/mm3 (1.2-5.4) L 03/21/19 06:30 Abs React Lymphs (Man) 0.0 K/mm3 03/21/19 06:30 Monocytes # (Manual) 0.1 K/mm3 (0.0-0.8) 03/21/19 06:30 Eosinophils # (Manual) 0.7 K/mm3 (0.0-0.4) H 03/21/19 06:30 Basophils # (Manual) 0.1 K/mm3 (0.0-0.1) 03/21/19 06:30 Metamyelocytes # 0.1 K/mm3 03/21/19 06:30 Myelocytes # 0.0 K/mm3 03/21/19 06:30 Promyelocytes # 0.0 K/mm3 03/21/19 06:30 Blast Cells # 0.0 K/mm3 03/21/19 06:30 WBC Morphology Not Reportable 03/21/19 06:30 Hypersegmented Neuts Not Reportable 03/21/19 06:30 Hyposegmented Neuts Not Reportable 03/21/19 06:30 Hypogranular Neuts Not Reportable 03/21/19 06:30 Smudge Cells Not Reportable 03/21/19 06:30 Toxic Granulation Not Reportable 03/21/19 06:30 Toxic Vacuolation Not Reportable 03/21/19 06:30 Dohle Bodies Not Reportable 03/21/19 06:30 Pelger-Huet Anomaly Not Reportable 03/21/19 06:30 Tramaine Rods Not Reportable 03/21/19 06:30 Platelet Estimate Consistent w auto 03/21/19 06:30 Clumped Platelets Not Reportable 03/21/19 06:30 Plt Clumps, EDTA Not Reportable 03/21/19 06:30 Large Platelets Not Reportable 03/21/19 06:30 Giant Platelets Not Reportable 03/21/19 06:30 Platelet Satelliting Not Reportable 03/21/19 06:30 Plt Morphology Comment Not Reportable 03/21/19 06:30 RBC Morphology Not Reportable 03/21/19 06:30 Dimorphic RBCs Not Reportable 03/21/19 06:30 Polychromasia Not Reportable 03/21/19 06:30 Hypochromasia Few 03/21/19 06:30 Poikilocytosis Few 03/21/19 06:30 Anisocytosis Few 03/21/19 06:30 Microcytosis Not Reportable 03/21/19 06:30 Macrocytosis Not Reportable 03/21/19 06:30 Spherocytes Not Reportable 03/21/19 06:30 Pappenheimer Bodies Not Reportable 03/21/19 06:30 Sickle Cells Not Reportable 03/21/19 06:30 Target Cells 1+ 03/21/19 06:30 Tear Drop Cells Not Reportable 03/21/19 06:30 Ovalocytes Few 03/21/19 06:30 Helmet Cells Not Reportable 03/21/19 06:30 [place] Bodies Not Reportable 03/21/19 06:30 [place] Rings Not Reportable 03/21/19 06:30 [place] Cells Not Reportable 03/21/19 06:30 Bite Cells Not Reportable 03/21/19 06:30 Crenated Cell Not Reportable 03/21/19 06:30 Elliptocytes Not Reportable 03/21/19 06:30 Acanthocytes (Spur) Not Reportable 03/21/19 06:30 Rouleaux Not Reportable 03/21/19 06:30 Hemoglobin C Crystals Not Reportable 03/21/19 06:30 Schistocytes Not Reportable 03/21/19 06:30 Malaria parasites Not Reportable 03/21/19 06:30 Jose Juan Bodies Not Reportable 03/21/19 06:30 Hem Pathologist Commnt No 03/21/19 06:30 PT 16.3 Sec. (12.2-14.9) H 03/01/19 09:39 INR 1.35 (0.87-1.13) H 03/01/19 09:39 APTT 33.7 Sec. (24.2-36.6) 02/21/19 18:30 D-Dimer 2987.82 ng/mlDDU (0-234) H 02/22/19 05:54 POC ABG pH 7.510 (7.35-7.45) H 03/18/19 06:38 ABG pH 7.424 pH Units (7.350-7.450) 03/19/19 04:23 POC ABG pCO2 38.9 (35-45) 03/18/19 06:38 ABG pCO2 48.0 mm Hg 03/19/19 04:23 POC ABG pO2 164 (80-105) H 03/18/19 06:38 ABG pO2 78.3 mm Hg (80.0-90.0) L 03/19/19 04:23 POC ABG HCO3 31.0 (22-26 mml/L) 03/18/19 06:38 ABG HCO3 30.7 mmol/L (20.0-26.0) H 03/19/19 04:23 POC ABG Total CO2 32 (23-27mmol/L) 03/18/19 06:38 POC ABG O2 Sat 100 03/18/19 06:38 ABG O2 Saturation 97.0 % (95.0-99.0) 03/19/19 04:23 ABG O2 Content 7.9 (0.0-44) 03/19/19 04:23 POC ABG Base Excess 8 ((-2) - (+3)mmol/L) 03/18/19 06:38 ABG Base Excess 5.8 mmol/L (-2.0-3.0) H 03/19/19 04:23 ABG Hemoglobin 5.8 gm/dl (14.0-18.0) L 03/19/19 04:23 ABG Carboxyhemoglobin 2.0 % (0.0-5.0) 03/19/19 04:23 ABG Methemoglobin 0.4 % (0.0-1.5) 03/19/19 04:23 Oxyhemoglobin 94.6 % (95.0-99.0) L 03/19/19 04:23 FiO2 35 % 03/19/19 04:23 Sodium 135 mmol/L (137-145) L 05/19/19 01:00 Potassium 3.9 mmol/L (3.6-5.0) 05/19/19 01:00 Chloride 93.6 mmol/L (98-107) L 05/19/19 01:00 Carbon Dioxide 29 mmol/L (22-30) 05/19/19 01:00 Anion Gap 16 mmol/L 05/19/19 01:00 BUN 64 mg/dL (9-20) H 05/19/19 01:00 Creatinine 2.8 mg/dL (0.8-1.5) H 05/19/19 01:00 Estimated GFR 28 ml/min 05/19/19 01:00 BUN/Creatinine Ratio 23 % 05/19/19 01:00 Glucose 194 mg/dL (75-100) H 05/19/19 01:00 POC Glucose 140 (70-105) H 05/22/19 06:09 Lactic Acid 1.00 mmol/L (0.7-2.0) 02/21/19 20:58 Calcium 9.5 mg/dL (8.4-10.2) 05/19/19 01:00 Phosphorus 4.30 mg/dL (2.5-4.5) D 03/31/19 10:26 Magnesium 2.70 mg/dL (1.7-2.3) H 03/30/19 10:13 Total Bilirubin 0.20 mg/dL (0.1-1.2) 03/30/19 10:13 AST 16 units/L (5-40) 03/30/19 10:13 ALT 11 units/L (7-56) 03/30/19 10:13 Alkaline Phosphatase 185 units/L (35-129) H 03/30/19 10:13 Ammonia 28.0 umol/L (25-60) 02/21/19 20:04 Total Creatine Kinase 64 units/L (55-170) 02/22/19 03:42 CK-MB (CK-2) 3.7 ng/mL (0.0-4.0) 02/22/19 03:42 CK-MB (CK-2) Rel Index 5.7 (0-4) H 02/22/19 03:42 Troponin T 0.193 ng/mL (0.00-0.029) H* 02/22/19 03:42 Total Protein 6.9 g/dL (6.3-8.2) 03/30/19 10:13 Albumin 2.6 g/dL (3.9-5) L 03/30/19 10:13 Albumin/Globulin Ratio 0.6 % 03/30/19 10:13 Triglycerides 51 mg/dL (2-149) 02/21/19 18:30 Cholesterol 82 mg/dL (50-199) 02/21/19 18:30 LDL Cholesterol Direct 36 mg/dL (50-130) L 02/21/19 18:30 HDL Cholesterol 40 mg/dL (40-59) 02/21/19 18:30 Cholesterol/HDL Ratio 2.05 % 02/21/19 18:30 TSH 2.760 mlU/mL (0.270-4.200) 02/21/19 20:04 PTH Intact 267.6 pg/mL (15-65) H 03/02/19 05:15 Salicylates < 0.3 mg/dL (2.8-20.0) L 02/21/19 20:04 Acetaminophen < 5.0 ug/mL (10.0-30.0) L 02/21/19 20:04 Hepatitis A IgM Ab Non-reactive (NonReactive) 04/30/19 14:11 Hep Bs Antigen Non-reactive (Negative) 04/30/19 14:11 Hep B Core IgM Ab Non-reactive (NonReactive) 04/30/19 14:11 Hepatitis C Antibody Non-reactive (NonReactive) 04/30/19 14:11 Blood Type O POSITIVE 05/04/19 12:55 Antibody Screen Negative 05/04/19 12:55 Crossmatch See Detail 05/04/19 12:55 Active Medications - Current Medications Current Medications: Generic Name Dose Route Start Last Admin Trade Name Freq PRN Reason Stop Dose Admin Acetaminophen 650 mg 05/18/19 23:33 05/19/19 10:55 Tylenol PO 650 mg Q6HR PRN Administration PAIN Albuterol/Ipratropium 1 ampul 02/24/19 20:00 05/22/19 08:40 Duoneb *Not For Prn Use* IH 1 ampul TIDRT SANCHEZ Administration Lipase/Protease/Amylase 1 each 04/10/19 15:16 Pancreaze 10,500 Unit FEEDTUBE PRN PRN For Clogged Feeding Tube Epoetin Solitario 20,000 unit 03/24/19 11:17 05/20/19 12:08 Procrit IV 20,000 unit UMA PRN Administration hemodialysis Famotidine 20 mg 02/23/19 10:00 05/21/19 11:06 Pepcid PO 20 mg DAILY SANCHEZ Administration Sodium Chloride 100 mls @ 999 mls/hr 05/13/19 12:45 Nacl 0.9% IV UMA PRN Hypotension Insulin Human Regular 0 units 02/26/19 12:00 05/22/19 06:04 Humulin R SUB-Q Not Given Q6HR SANCHEZ Protocol Metoprolol Tartrate 2.5 mg 02/28/19 12:06 03/15/19 05:15 Lopressor IV 2.5 mg Q4HR PRN Administration Tachycardia Risperidone 1 mg 02/25/19 13:00 05/21/19 11:06 Risperdal PO 1 mg DAILY SANCHEZ Administration Sertraline HCl 100 mg 02/25/19 13:00 05/21/19 11:06 Zoloft PO 100 mg DAILY SANCEHZ Administration Simple Syrup 15 ml 04/10/19 15:16 Simple Syrup FEEDTUBE PRN PRN Hypoglycemia Simple Syrup 30 ml 04/10/19 15:16 Simple Syrup FEEDTUBE PRN PRN Hypoglycemia Sodium Bicarbonate 325 mg 04/10/19 15:16 Sodium Bicarbonate FEEDTUBE PRN PRN For Clogged Feeding Tube Sodium Hypochlorite 1 applic 04/01/19 13:00 05/21/19 23:34 Dakin's Half Strength TP 1 applicatio BID SANCHEZ Administration Nutrition/Malnutrition Assess - Dietary Evaluation Nutrition/Malnutrition Findings: Nutrition Notes Start: 02/22/19 12:51 Freq: Status: Active Protocol: Document 05/21/19 12:03 DW (Rec: 05/21/19 12:13 DW [id number]) Co-Sign 05/21/19 12:03 Nutrition Notes Initial or Follow up Reassessment Current Diagnosis CKD (stage V CKD),Diabetes, Hypertension,Heart Failure Other Pertinent Diagnosis Sacral PU, ESRD on HD (T/Thurs /Sat), Schizophrenia,Blind in L eye,S/P trach Current Diet Nepro at 50 ml/hr w/Abhilash BID Labs/Tests POC Glu: 218 Pertinent Medications Reviewed Height 5 ft 10 in Weight 74.7 kg [place] Body Weight (kg) 75.45 BMI 23.6 Weight change and time frame Wt loss noted. Likely d/t fluid change. Subjective/Other Information Upon arrival noted tube feed was running at goal. Per nurse pt is receiving Abhilash Percent of energy/protein needs met: 100%/100% Burn Absent Trauma Absent Minimum of two criteria No #2 Nutrition Diagnosis Increased nutrient needs ( specify in comment below) Diagnosis Progress(for reassessment Continues documentation) #1 Nutrition Diagnosis Inadequate oral intake Diagnosis Progress(for reassessment Continues documentation) Is patient on ventilator? No Is Patient Ambulatory and/or Out of Bed No REE-([place]-St. Jeor-confined to bed) 1857.144 Kcal/Kg value to use for calculation 32 Approximate Energy Requirements Using 2390 kcal/Kg Calculation Used for Recommendations Kcal/kg Additional Notes PRO: 82-103g/day(1.2-1.5g/kg) Fluid: per MD Nutrition Intervention Change Diet Order: Continue TF Nutrition Support: Nepro with Carbsteady 1.8 at 50 ml/hr Flush 200 ml q4hr Kcal 2,160 Protein (gm) 97 Fluid (mL) 872 Add Supplement/Snack (indicate name/kcal Abhilash BID /protein ) Provides kCal: 190 Provides Protein (gm) 5 Goal #1 Continue to meet at least 75% of calorie and protein needs via TF Anticipated Discharge Needs: TF Follow-Up By: 05/28/19 Additional Comments F/U for TF tolereance and Abhilash
[2019-05-22] MEDS ORDERED: SODIUM CHLORIDE*PRIMING MACHINE ONLY FOR DIALYSIS MC ONE (11:31)
[2019-05-22] MEDS: EPOETIN ALFA 20,000 UNIT/1 ML INJ IV PRN (12:11)
--- NOTE | 2019-05-22 14:05 | Progress Note ---
Assessment and Plan 63 y/o male with multiple medical issues admitted with altered mental status, acute respiratory failure requiring mechanical ventilation, now trached, on HD unable to find placement given this combination, now with recurrent fevers. No new recommendations for today. Please see below 1. Continue capping trials. Nasal cannula therapy. 2. HD per renal 3. PT/OT if possible 4. CM working on placement 5. No objection to discharge once placement is found Agree with ID note. Patient is a DNR. He is not to be placed back on the ventilator. Acetinetobacter was seen in lungs last time, most likely could resurface their again. Remainder for those who are not as familiar with this case. Patient has been in the hospital on this particular stay almost 3 months. Subjective Date of service: 05/22/19 Principal diagnosis: Respiratory failure, acute on chronic systolic HF, ESRD Interval history: No acute events. Pulm status remains the same. Tolerating capping. Objective Vital Signs - 12hr 05/22/19 05/22/19 05/22/19 04:33 08:40 09:09 Temperature 98.0 F Pulse Rate 107 H Pulse Rate [ 106 H Anterior Bilateral Throughout] Respiratory 16 18 Rate Respiratory 18 Rate [Anterior Bilateral Throughout] Blood Pressure 127/57 O2 Sat by Pulse 99 Oximetry O2 Sat by Pulse Oximetry [ Assessment] 05/22/19 05/22/19 05/22/19 09:13 10:06 10:15 Temperature 98.8 F Pulse Rate 111 H 110 H Pulse Rate [ Anterior Bilateral Throughout] Respiratory 26 H Rate Respiratory Rate [Anterior Bilateral Throughout] Blood Pressure 102/63 117/64 O2 Sat by Pulse 99 Oximetry O2 Sat by Pulse 99 Oximetry [ Assessment] 05/22/19 05/22/19 05/22/19 10:30 10:45 11:00 Temperature Pulse Rate 114 H 113 H 80 Pulse Rate [ Anterior Bilateral Throughout] Respiratory Rate Respiratory Rate [Anterior Bilateral Throughout] Blood Pressure 108/60 104/62 112/63 O2 Sat by Pulse Oximetry O2 Sat by Pulse Oximetry [ Assessment] 05/22/19 05/22/19 05/22/19 11:15 11:30 11:45 Temperature Pulse Rate 118 H 115 H 113 H Pulse Rate [ Anterior Bilateral Throughout] Respiratory Rate Respiratory Rate [Anterior Bilateral Throughout] Blood Pressure 99/56 101/68 95/64 O2 Sat by Pulse Oximetry O2 Sat by Pulse Oximetry [ Assessment] 05/22/19 05/22/19 12:00 12:12 Temperature Pulse Rate 111 H 111 H Pulse Rate [ Anterior Bilateral Throughout] Respiratory Rate Respiratory Rate [Anterior Bilateral Throughout] Blood Pressure 98/62 109/65 O2 Sat by Pulse Oximetry O2 Sat by Pulse Oximetry [ Assessment] Constitutional: no acute distress, alert Eyes: non-icteric ENT: oropharynx moist Neck: supple Effort: normal Ascultation: Bilateral: diminished breath sounds, other (coarse BS bilaterally) Percussion: Bilateral: not dull Cardiovascular: regular rate and rhythm (no mrg) Gastrointestinal: normoactive bowel sounds, soft, non-tender, non-distended, other (ostomy in place, brown stool) Extremities: no cyanosis, no edema, pink and warm Neurologic: other (mild weakness LUE, o/w nonfocal) Psychiatric: other (unable to assess) CBC and BMP: 05/19/19 01:00 05/19/19 01:00 ABG, PT/INR, D-dimer: ABG POC ABG pH 7.510 (7.35-7.45) H 03/18/19 06:38 ABG pH 7.424 pH Units (7.350-7.450) 03/19/19 04:23 POC ABG pCO2 38.9 (35-45) 03/18/19 06:38 ABG pCO2 48.0 mm Hg 03/19/19 04:23 POC ABG pO2 164 (80-105) H 03/18/19 06:38 ABG pO2 78.3 mm Hg (80.0-90.0) L 03/19/19 04:23 POC ABG HCO3 31.0 (22-26 mml/L) 03/18/19 06:38 POC ABG Total CO2 32 (23-27mmol/L) 03/18/19 06:38 POC ABG O2 Sat 100 03/18/19 06:38 ABG O2 Saturation 97.0 % (95.0-99.0) 03/19/19 04:23 PT/INR, D-dimer PT 16.3 Sec. (12.2-14.9) H 03/01/19 09:39 INR 1.35 (0.87-1.13) H 03/01/19 09:39 D-Dimer 2987.82 ng/mlDDU (0-234) H 02/22/19 05:54 Abnormal lab findings: Abnormal Labs 02/21/19 02/21/19 02/21/19 18:30 18:30 18:30 WBC RBC 3.26 L Hgb 8.8 L Hct 29.0 L MCV MCH 27 L MCHC 30 L RDW 19.1 H Plt Count Lymph % (Auto) 6.1 L [place] % (Auto) Eos % (Auto) Baso % (Auto) Lymph # 0.4 L [place] # Eos # Baso # Seg Neutrophils % 86.2 H Seg Neuts % (Manual) Lymphocytes % (Manual) Eosinophils % (Manual) Seg Neutrophils # Lymphocytes # (Manual) Eosinophils # (Manual) PT INR D-Dimer POC ABG pH POC ABG pCO2 POC ABG pO2 ABG pO2 ABG HCO3 ABG Base Excess ABG Hemoglobin Oxyhemoglobin Sodium 133 L Potassium 3.3 L Chloride 93.1 L Carbon Dioxide 33 H BUN Creatinine Glucose 161 H POC Glucose Calcium Phosphorus Magnesium ALT Alkaline Phosphatase 136 H Total Creatine Kinase 37 L CK-MB (CK-2) Rel Index Troponin T 0.192 H* Albumin 2.4 L LDL Cholesterol Direct 36 L PTH Intact Salicylates Acetaminophen Crossmatch 02/21/19 02/21/19 02/21/19 18:42 20:04 20:04 WBC RBC Hgb Hct MCV MCH MCHC RDW Plt Count Lymph % (Auto) [place] % (Auto) Eos % (Auto) Baso % (Auto) Lymph # [place] # Eos # Baso # Seg Neutrophils % Seg Neuts % (Manual) Lymphocytes % (Manual) Eosinophils % (Manual) Seg Neutrophils # Lymphocytes # (Manual) Eosinophils # (Manual) PT INR D-Dimer POC ABG pH POC ABG pCO2 56.7 H POC ABG pO2 291 H ABG pO2 ABG HCO3 ABG Base Excess ABG Hemoglobin Oxyhemoglobin Sodium Potassium Chloride Carbon Dioxide BUN Creatinine Glucose POC Glucose Calcium Phosphorus Magnesium ALT Alkaline Phosphatase Total Creatine Kinase CK-MB (CK-2) Rel Index Troponin T Albumin LDL Cholesterol Direct PTH Intact Salicylates < 0.3 L Acetaminophen < 5.0 L Crossmatch 02/21/19 02/22/19 02/22/19 22:35 03:42 03:42 WBC RBC 3.20 L Hgb 8.8 L Hct 27.6 L MCV MCH MCHC RDW 18.9 H Plt Count Lymph % (Auto) 7.4 L [place] % (Auto) Eos % (Auto) Baso % (Auto) Lymph # 0.7 L [place] # Eos # Baso # Seg Neutrophils % 84.7 H Seg Neuts % (Manual) Lymphocytes % (Manual) Eosinophils % (Manual) Seg Neutrophils # Lymphocytes # (Manual) Eosinophils # (Manual) PT INR D-Dimer POC ABG pH POC ABG pCO2 POC ABG pO2 ABG pO2 ABG HCO3 ABG Base Excess ABG Hemoglobin Oxyhemoglobin Sodium 134 L Potassium 2.6 L* D Chloride Carbon Dioxide BUN Creatinine Glucose POC Glucose Calcium Phosphorus Magnesium ALT Alkaline Phosphatase Total Creatine Kinase CK-MB (CK-2) Rel Index 5.2 H Troponin T 0.202 H* Albumin LDL Cholesterol Direct PTH Intact Salicylates Acetaminophen Crossmatch 02/22/19 02/22/19 02/22/19 03:42 05:54 09:04 WBC RBC Hgb Hct MCV MCH MCHC RDW Plt Count Lymph % (Auto) [place] % (Auto) Eos % (Auto) Baso % (Auto) Lymph # [place] # Eos # Baso # Seg Neutrophils % Seg Neuts % (Manual) Lymphocytes % (Manual) Eosinophils % (Manual) Seg Neutrophils # Lymphocytes # (Manual) Eosinophils # (Manual) PT INR D-Dimer 2987.82 H POC ABG pH 7.451 H POC ABG pCO2 POC ABG pO2 ABG pO2 ABG HCO3 ABG Base Excess ABG Hemoglobin Oxyhemoglobin Sodium Potassium Chloride Carbon Dioxide BUN Creatinine Glucose POC Glucose Calcium Phosphorus Magnesium ALT Alkaline Phosphatase Total Creatine Kinase CK-MB (CK-2) Rel Index 5.7 H Troponin T 0.193 H* Albumin LDL Cholesterol Direct PTH Intact Salicylates Acetaminophen Crossmatch 02/22/19 02/22/19 02/23/19 10:36 23:56 00:52 WBC RBC Hgb Hct MCV MCH MCHC RDW Plt Count Lymph % (Auto) [place] % (Auto) Eos % (Auto) Baso % (Auto) Lymph # [place] # Eos # Baso # Seg Neutrophils % Seg Neuts % (Manual) Lymphocytes % (Manual) Eosinophils % (Manual) Seg Neutrophils # Lymphocytes # (Manual) Eosinophils # (Manual) PT INR D-Dimer POC ABG pH POC ABG pCO2 POC ABG pO2 ABG pO2 ABG HCO3 ABG Base Excess ABG Hemoglobin Oxyhemoglobin Sodium Potassium 3.1 L Chloride Carbon Dioxide BUN Creatinine Glucose POC Glucose 58 L 111 H Calcium Phosphorus Magnesium ALT Alkaline Phosphatase Total Creatine Kinase CK-MB (CK-2) Rel Index Troponin T Albumin LDL Cholesterol Direct PTH Intact Salicylates Acetaminophen Crossmatch 02/23/19 02/23/19 02/23/19 05:00 06:35 14:26 WBC RBC Hgb Hct MCV MCH MCHC RDW Plt Count Lymph % (Auto) [place] % (Auto) Eos % (Auto) Baso % (Auto) Lymph # [place] # Eos # Baso # Seg Neutrophils % Seg Neuts % (Manual) Lymphocytes % (Manual) Eosinophils % (Manual) Seg Neutrophils # Lymphocytes # (Manual) Eosinophils # (Manual) PT INR D-Dimer POC ABG pH POC ABG pCO2 POC ABG pO2 ABG pO2 ABG HCO3 ABG Base Excess ABG Hemoglobin Oxyhemoglobin Sodium 135 L Potassium 3.1 L Chloride Carbon Dioxide BUN 21 H Creatinine 2.0 H Glucose 57 L POC Glucose 64 L 62 L Calcium Phosphorus Magnesium ALT Alkaline Phosphatase Total Creatine Kinase CK-MB (CK-2) Rel Index Troponin T Albumin LDL Cholesterol Direct PTH Intact Salicylates Acetaminophen Crossmatch 02/24/19 02/24/19 02/24/19 02:11 04:12 04:55 WBC RBC 2.84 L Hgb 7.8 L Hct 24.5 L MCV MCH MCHC RDW 19.5 H Plt Count Lymph % (Auto) [place] % (Auto) Eos % (Auto) Baso % (Auto) Lymph # [place] # Eos # Baso # Seg Neutrophils % Seg Neuts % (Manual) Lymphocytes % (Manual) Eosinophils % (Manual) Seg Neutrophils # Lymphocytes # (Manual) Eosinophils # (Manual) PT INR D-Dimer POC ABG pH 7.511 H POC ABG pCO2 33.9 L POC ABG pO2 62 L ABG pO2 ABG HCO3 ABG Base Excess ABG Hemoglobin Oxyhemoglobin Sodium Potassium Chloride Carbon Dioxide BUN Creatinine Glucose POC Glucose 69 L Calcium Phosphorus Magnesium ALT Alkaline Phosphatase Total Creatine Kinase CK-MB (CK-2) Rel Index Troponin T Albumin LDL Cholesterol Direct PTH Intact Salicylates Acetaminophen Crossmatch 02/24/19 02/24/19 02/25/19 04:55 05:41 04:45 WBC RBC Hgb Hct MCV MCH MCHC RDW Plt Count Lymph % (Auto) [place] % (Auto) Eos % (Auto) Baso % (Auto) Lymph # [place] # Eos # Baso # Seg Neutrophils % Seg Neuts % (Manual) Lymphocytes % (Manual) Eosinophils % (Manual) Seg Neutrophils # Lymphocytes # (Manual) Eosinophils # (Manual) PT INR D-Dimer POC ABG pH 7.466 H POC ABG pCO2 POC ABG pO2 75 L ABG pO2 ABG HCO3 ABG Base Excess ABG Hemoglobin Oxyhemoglobin Sodium Potassium Chloride Carbon Dioxide BUN Creatinine 1.8 H Glucose 73 L POC Glucose 127 H Calcium Phosphorus Magnesium ALT Alkaline Phosphatase Total Creatine Kinase CK-MB (CK-2) Rel Index Troponin T Albumin LDL Cholesterol Direct PTH Intact Salicylates Acetaminophen Crossmatch 02/25/19 02/25/19 02/26/19 16:34 21:33 03:45 WBC RBC 2.96 L Hgb 8.0 L Hct 25.8 L MCV MCH 27 L MCHC 31 L RDW 20.0 H Plt Count Lymph % (Auto) [place] % (Auto) Eos % (Auto) Baso % (Auto) Lymph # [place] # Eos # Baso # Seg Neutrophils % Seg Neuts % (Manual) Lymphocytes % (Manual) Eosinophils % (Manual) Seg Neutrophils # Lymphocytes # (Manual) Eosinophils # (Manual) PT INR D-Dimer POC ABG pH POC ABG pCO2 POC ABG pO2 ABG pO2 ABG HCO3 ABG Base Excess ABG Hemoglobin Oxyhemoglobin Sodium Potassium Chloride Carbon Dioxide BUN Creatinine Glucose POC Glucose 141 H 106 H Calcium Phosphorus Magnesium ALT Alkaline Phosphatase Total Creatine Kinase CK-MB (CK-2) Rel Index Troponin T Albumin LDL Cholesterol Direct PTH Intact Salicylates Acetaminophen Crossmatch 02/26/19 02/26/19 02/26/19 03:45 04:13 07:53 WBC RBC Hgb Hct MCV MCH MCHC RDW Plt Count Lymph % (Auto) [place] % (Auto) Eos % (Auto) Baso % (Auto) Lymph # [place] # Eos # Baso # Seg Neutrophils % Seg Neuts % (Manual) Lymphocytes % (Manual) Eosinophils % (Manual) Seg Neutrophils # Lymphocytes # (Manual) Eosinophils # (Manual) PT INR D-Dimer POC ABG pH 7.470 H POC ABG pCO2 POC ABG pO2 ABG pO2 ABG HCO3 ABG Base Excess ABG Hemoglobin Oxyhemoglobin Sodium Potassium Chloride Carbon Dioxide BUN Creatinine 1.8 H Glucose POC Glucose 110 H Calcium Phosphorus Magnesium ALT Alkaline Phosphatase Total Creatine Kinase CK-MB (CK-2) Rel Index Troponin T Albumin LDL Cholesterol Direct PTH Intact Salicylates Acetaminophen Crossmatch 02/26/19 02/26/19 02/27/19 11:56 17:43 00:12 WBC RBC Hgb Hct MCV MCH MCHC RDW Plt Count Lymph % (Auto) [place] % (Auto) Eos % (Auto) Baso % (Auto) Lymph # [place] # Eos # Baso # Seg Neutrophils % Seg Neuts % (Manual) Lymphocytes % (Manual) Eosinophils % (Manual) Seg Neutrophils # Lymphocytes # (Manual) Eosinophils # (Manual) PT INR D-Dimer POC ABG pH POC ABG pCO2 POC ABG pO2 ABG pO2 ABG HCO3 ABG Base Excess ABG Hemoglobin Oxyhemoglobin Sodium Potassium Chloride Carbon Dioxide BUN Creatinine Glucose POC Glucose 112 H 127 H 127 H Calcium Phosphorus Magnesium ALT Alkaline Phosphatase Total Creatine Kinase CK-MB (CK-2) Rel Index Troponin T Albumin LDL Cholesterol Direct PTH Intact Salicylates Acetaminophen Crossmatch 02/27/19 02/27/19 02/27/19 04:35 13:15 18:02 WBC RBC Hgb Hct MCV MCH MCHC RDW Plt Count Lymph % (Auto) [place] % (Auto) Eos % (Auto) Baso % (Auto) Lymph # [place] # Eos # Baso # Seg Neutrophils % Seg Neuts % (Manual) Lymphocytes % (Manual) Eosinophils % (Manual) Seg Neutrophils # Lymphocytes # (Manual) Eosinophils # (Manual) PT INR D-Dimer POC ABG pH 7.483 H POC ABG pCO2 POC ABG pO2 61 L ABG pO2 ABG HCO3 ABG Base Excess ABG Hemoglobin Oxyhemoglobin Sodium Potassium Chloride Carbon Dioxide BUN Creatinine Glucose POC Glucose 143 H 106 H Calcium Phosphorus Magnesium ALT Alkaline Phosphatase Total Creatine Kinase CK-MB (CK-2) Rel Index Troponin T Albumin LDL Cholesterol Direct PTH Intact Salicylates Acetaminophen Crossmatch 02/28/19 02/28/19 02/28/19 05:50 11:59 17:52 WBC RBC Hgb Hct MCV MCH MCHC RDW Plt Count Lymph % (Auto) [place] % (Auto) Eos % (Auto) Baso % (Auto) Lymph # [place] # Eos # Baso # Seg Neutrophils % Seg Neuts % (Manual) Lymphocytes % (Manual) Eosinophils % (Manual) Seg Neutrophils # Lymphocytes # (Manual) Eosinophils # (Manual) PT INR D-Dimer POC ABG pH POC ABG pCO2 POC ABG pO2 ABG pO2 ABG HCO3 ABG Base Excess ABG Hemoglobin Oxyhemoglobin Sodium Potassium Chloride Carbon Dioxide BUN Creatinine Glucose POC Glucose 134 H 128 H 142 H Calcium Phosphorus Magnesium ALT Alkaline Phosphatase Total Creatine Kinase CK-MB (CK-2) Rel Index Troponin T Albumin LDL Cholesterol Direct PTH Intact Salicylates Acetaminophen Crossmatch 02/28/19 03/01/19 03/01/19 23:13 05:40 09:39 WBC RBC Hgb Hct MCV MCH MCHC RDW Plt Count Lymph % (Auto) [place] % (Auto) Eos % (Auto) Baso % (Auto) Lymph # [place] # Eos # Baso # Seg Neutrophils % Seg Neuts % (Manual) Lymphocytes % (Manual) Eosinophils % (Manual) Seg Neutrophils # Lymphocytes # (Manual) Eosinophils # (Manual) PT 16.3 H INR 1.35 H D-Dimer POC ABG pH POC ABG pCO2 POC ABG pO2 ABG pO2 ABG HCO3 ABG Base Excess ABG Hemoglobin Oxyhemoglobin Sodium Potassium Chloride Carbon Dioxide BUN Creatinine Glucose POC Glucose 112 H 111 H Calcium Phosphorus Magnesium ALT Alkaline Phosphatase Total Creatine Kinase CK-MB (CK-2) Rel Index Troponin T Albumin LDL Cholesterol Direct PTH Intact Salicylates Acetaminophen Crossmatch 03/01/19 03/01/19 03/01/19 11:56 13:54 17:59 WBC RBC Hgb Hct MCV MCH MCHC RDW Plt Count Lymph % (Auto) [place] % (Auto) Eos % (Auto) Baso % (Auto) Lymph # [place] # Eos # Baso # Seg Neutrophils % Seg Neuts % (Manual) Lymphocytes % (Manual) Eosinophils % (Manual) Seg Neutrophils # Lymphocytes # (Manual) Eosinophils # (Manual) PT INR D-Dimer POC ABG pH POC ABG pCO2 POC ABG pO2 ABG pO2 ABG HCO3 ABG Base Excess ABG Hemoglobin Oxyhemoglobin Sodium Potassium Chloride Carbon Dioxide BUN 33 H Creatinine 2.8 H D Glucose 176 H POC Glucose 199 H 147 H Calcium Phosphorus Magnesium ALT Alkaline Phosphatase Total Creatine Kinase CK-MB (CK-2) Rel Index Troponin T Albumin LDL Cholesterol Direct PTH Intact Salicylates Acetaminophen Crossmatch 03/02/19 03/02/19 03/02/19 05:15 05:15 05:15 WBC RBC 2.73 L Hgb 7.4 L Hct 23.0 L MCV MCH 27 L MCHC RDW 19.9 H Plt Count Lymph % (Auto) [place] % (Auto) 7.9 H Eos % (Auto) 7.6 H Baso % (Auto) Lymph # 1.0 L [place] # Eos # 0.5 H Baso # Seg Neutrophils % Seg Neuts % (Manual) Lymphocytes % (Manual) Eosinophils % (Manual) Seg Neutrophils # Lymphocytes # (Manual) Eosinophils # (Manual) PT INR D-Dimer POC ABG pH POC ABG pCO2 POC ABG pO2 ABG pO2 ABG HCO3 ABG Base Excess ABG Hemoglobin Oxyhemoglobin Sodium Potassium Chloride Carbon Dioxide BUN 43 H Creatinine 3.2 H Glucose POC Glucose Calcium Phosphorus 2.30 L Magnesium ALT Alkaline Phosphatase Total Creatine Kinase CK-MB (CK-2) Rel Index Troponin T Albumin LDL Cholesterol Direct PTH Intact 267.6 H Salicylates Acetaminophen Crossmatch 03/02/19 03/02/19 03/03/19 12:32 18:20 13:30 WBC RBC Hgb Hct MCV MCH MCHC RDW Plt Count Lymph % (Auto) [place] % (Auto) Eos % (Auto) Baso % (Auto) Lymph # [place] # Eos # Baso # Seg Neutrophils % Seg Neuts % (Manual) Lymphocytes % (Manual) Eosinophils % (Manual) Seg Neutrophils # Lymphocytes # (Manual) Eosinophils # (Manual) PT INR D-Dimer POC ABG pH POC ABG pCO2 POC ABG pO2 ABG pO2 ABG HCO3 ABG Base Excess ABG Hemoglobin Oxyhemoglobin Sodium Potassium Chloride 97.3 L Carbon Dioxide BUN 26 H Creatinine 2.2 H Glucose 73 L POC Glucose 111 H 156 H Calcium Phosphorus Magnesium ALT Alkaline Phosphatase Total Creatine Kinase CK-MB (CK-2) Rel Index Troponin T Albumin LDL Cholesterol Direct PTH Intact Salicylates Acetaminophen Crossmatch 03/04/19 03/04/19 03/04/19 00:02 05:37 05:40 WBC RBC 2.63 L Hgb 7.2 L Hct 22.2 L MCV MCH MCHC RDW 20.2 H Plt Count Lymph % (Auto) 10.5 L [place] % (Auto) Eos % (Auto) 4.6 H Baso % (Auto) Lymph # 0.7 L [place] # Eos # Baso # Seg Neutrophils % 76.9 H Seg Neuts % (Manual) Lymphocytes % (Manual) Eosinophils % (Manual) Seg Neutrophils # Lymphocytes # (Manual) Eosinophils # (Manual) PT INR D-Dimer POC ABG pH POC ABG pCO2 POC ABG pO2 ABG pO2 ABG HCO3 ABG Base Excess ABG Hemoglobin Oxyhemoglobin Sodium Potassium Chloride Carbon Dioxide BUN Creatinine Glucose POC Glucose 136 H 123 H Calcium Phosphorus Magnesium ALT Alkaline Phosphatase Total Creatine Kinase CK-MB (CK-2) Rel Index Troponin T Albumin LDL Cholesterol Direct PTH Intact Salicylates Acetaminophen Crossmatch 03/04/19 03/04/19 03/04/19 05:40 11:39 23:20 WBC RBC Hgb Hct MCV MCH MCHC RDW Plt Count Lymph % (Auto) [place] % (Auto) Eos % (Auto) Baso % (Auto) Lymph # [place] # Eos # Baso # Seg Neutrophils % Seg Neuts % (Manual) Lymphocytes % (Manual) Eosinophils % (Manual) Seg Neutrophils # Lymphocytes # (Manual) Eosinophils # (Manual) PT INR D-Dimer POC ABG pH POC ABG pCO2 POC ABG pO2 ABG pO2 ABG HCO3 ABG Base Excess ABG Hemoglobin Oxyhemoglobin Sodium Potassium Chloride Carbon Dioxide BUN 34 H Creatinine 2.7 H Glucose 114 H POC Glucose 175 H 151 H Calcium Phosphorus Magnesium ALT Alkaline Phosphatase Total Creatine Kinase CK-MB (CK-2) Rel Index Troponin T Albumin LDL Cholesterol Direct PTH Intact Salicylates Acetaminophen Crossmatch 03/05/19 03/05/19 03/05/19 05:37 12:08 17:11 WBC RBC Hgb Hct MCV MCH MCHC RDW Plt Count Lymph % (Auto) [place] % (Auto) Eos % (Auto) Baso % (Auto) Lymph # [place] # Eos # Baso # Seg Neutrophils % Seg Neuts % (Manual) Lymphocytes % (Manual) Eosinophils % (Manual) Seg Neutrophils # Lymphocytes # (Manual) Eosinophils # (Manual) PT INR D-Dimer POC ABG pH POC ABG pCO2 POC ABG pO2 ABG pO2 ABG HCO3 ABG Base Excess ABG Hemoglobin Oxyhemoglobin Sodium Potassium Chloride Carbon Dioxide BUN Creatinine Glucose POC Glucose 134 H 135 H 135 H Calcium Phosphorus Magnesium ALT Alkaline Phosphatase Total Creatine Kinase CK-MB (CK-2) Rel Index Troponin T Albumin LDL Cholesterol Direct PTH Intact Salicylates Acetaminophen Crossmatch 03/06/19 03/06/19 03/06/19 00:16 13:05 18:09 WBC RBC Hgb Hct MCV MCH MCHC RDW Plt Count Lymph % (Auto) [place] % (Auto) Eos % (Auto) Baso % (Auto) Lymph # [place] # Eos # Baso # Seg Neutrophils % Seg Neuts % (Manual) Lymphocytes % (Manual) Eosinophils % (Manual) Seg Neutrophils # Lymphocytes # (Manual) Eosinophils # (Manual) PT INR D-Dimer POC ABG pH POC ABG pCO2 POC ABG pO2 ABG pO2 ABG HCO3 ABG Base Excess ABG Hemoglobin Oxyhemoglobin Sodium Potassium Chloride Carbon Dioxide BUN Creatinine Glucose POC Glucose 117 H 113 H 131 H Calcium Phosphorus Magnesium ALT Alkaline Phosphatase Total Creatine Kinase CK-MB (CK-2) Rel Index Troponin T Albumin LDL Cholesterol Direct PTH Intact Salicylates Acetaminophen Crossmatch 03/07/19 03/08/19 03/08/19 05:25 05:33 16:00 WBC RBC 2.44 L Hgb 6.6 L Hct 20.8 L MCV MCH 27 L MCHC RDW 19.2 H Plt Count Lymph % (Auto) [place] % (Auto) Eos % (Auto) 8.6 H Baso % (Auto) Lymph # 0.8 L [place] # Eos # 0.5 H Baso # Seg Neutrophils % 70.7 H Seg Neuts % (Manual) Lymphocytes % (Manual) Eosinophils % (Manual) Seg Neutrophils # Lymphocytes # (Manual) Eosinophils # (Manual) PT INR D-Dimer POC ABG pH POC ABG pCO2 POC ABG pO2 ABG pO2 ABG HCO3 ABG Base Excess ABG Hemoglobin Oxyhemoglobin Sodium Potassium Chloride Carbon Dioxide BUN Creatinine Glucose POC Glucose 106 H 108 H Calcium Phosphorus Magnesium ALT Alkaline Phosphatase Total Creatine Kinase CK-MB (CK-2) Rel Index Troponin T Albumin LDL Cholesterol Direct PTH Intact Salicylates Acetaminophen Crossmatch 03/08/19 03/08/19 03/08/19 16:00 18:38 Unknown WBC RBC Hgb Hct MCV MCH MCHC RDW Plt Count Lymph % (Auto) [place] % (Auto) Eos % (Auto) Baso % (Auto) Lymph # [place] # Eos # Baso # Seg Neutrophils % Seg Neuts % (Manual) Lymphocytes % (Manual) Eosinophils % (Manual) Seg Neutrophils # Lymphocytes # (Manual) Eosinophils # (Manual) PT INR D-Dimer POC ABG pH POC ABG pCO2 POC ABG pO2 ABG pO2 ABG HCO3 ABG Base Excess ABG Hemoglobin Oxyhemoglobin Sodium Potassium 5.4 H D Chloride Carbon Dioxide BUN 47 H Creatinine 2.6 H Glucose POC Glucose 123 H Calcium Phosphorus Magnesium ALT < 5 L Alkaline Phosphatase Total Creatine Kinase CK-MB (CK-2) Rel Index Troponin T Albumin 2.2 L LDL Cholesterol Direct PTH Intact Salicylates Acetaminophen Crossmatch See Detail 03/09/19 03/09/19 03/09/19 10:48 12:28 13:53 WBC RBC 2.85 L Hgb 7.7 L Hct 24.2 L MCV MCH 27 L MCHC RDW 18.7 H Plt Count Lymph % (Auto) [place] % (Auto) Eos % (Auto) Baso % (Auto) Lymph # [place] # Eos # Baso # Seg Neutrophils % Seg Neuts % (Manual) Lymphocytes % (Manual) Eosinophils % (Manual) Seg Neutrophils # Lymphocytes # (Manual) Eosinophils # (Manual) PT INR D-Dimer POC ABG pH POC ABG pCO2 POC ABG pO2 ABG pO2 ABG HCO3 30.5 H ABG Base Excess 5.6 H ABG Hemoglobin 8.1 L Oxyhemoglobin 93.8 L Sodium Potassium Chloride Carbon Dioxide BUN Creatinine Glucose POC Glucose 114 H Calcium Phosphorus Magnesium ALT Alkaline Phosphatase Total Creatine Kinase CK-MB (CK-2) Rel Index Troponin T Albumin LDL Cholesterol Direct PTH Intact Salicylates Acetaminophen Crossmatch 03/09/19 03/09/19 03/10/19 17:58 23:53 12:01 WBC RBC Hgb Hct MCV MCH MCHC RDW Plt Count Lymph % (Auto) [place] % (Auto) Eos % (Auto) Baso % (Auto) Lymph # [place] # Eos # Baso # Seg Neutrophils % Seg Neuts % (Manual) Lymphocytes % (Manual) Eosinophils % (Manual) Seg Neutrophils # Lymphocytes # (Manual) Eosinophils # (Manual) PT INR D-Dimer POC ABG pH POC ABG pCO2 POC ABG pO2 ABG pO2 ABG HCO3 ABG Base Excess ABG Hemoglobin Oxyhemoglobin Sodium Potassium Chloride Carbon Dioxide BUN Creatinine Glucose POC Glucose 108 H 128 H 144 H Calcium Phosphorus Magnesium ALT Alkaline Phosphatase Total Creatine Kinase CK-MB (CK-2) Rel Index Troponin T Albumin LDL Cholesterol Direct PTH Intact Salicylates Acetaminophen Crossmatch 03/10/19 03/11/19 03/11/19 16:50 00:24 05:02 WBC RBC Hgb Hct MCV MCH MCHC RDW Plt Count Lymph % (Auto) [place] % (Auto) Eos % (Auto) Baso % (Auto) Lymph # [place] # Eos # Baso # Seg Neutrophils % Seg Neuts % (Manual) Lymphocytes % (Manual) Eosinophils % (Manual) Seg Neutrophils # Lymphocytes # (Manual) Eosinophils # (Manual) PT INR D-Dimer POC ABG pH POC ABG pCO2 POC ABG pO2 ABG pO2 ABG HCO3 ABG Base Excess ABG Hemoglobin Oxyhemoglobin Sodium Potassium Chloride Carbon Dioxide BUN Creatinine Glucose POC Glucose 147 H 123 H 120 H Calcium Phosphorus Magnesium ALT Alkaline Phosphatase Total Creatine Kinase CK-MB (CK-2) Rel Index Troponin T Albumin LDL Cholesterol Direct PTH Intact Salicylates Acetaminophen Crossmatch 03/11/19 03/11/19 03/11/19 11:56 12:20 18:37 WBC RBC Hgb Hct MCV MCH MCHC RDW Plt Count Lymph % (Auto) [place] % (Auto) Eos % (Auto) Baso % (Auto) Lymph # [place] # Eos # Baso # Seg Neutrophils % Seg Neuts % (Manual) Lymphocytes % (Manual) Eosinophils % (Manual) Seg Neutrophils # Lymphocytes # (Manual) Eosinophils # (Manual) PT INR D-Dimer POC ABG pH POC ABG pCO2 POC ABG pO2 ABG pO2 ABG HCO3 ABG Base Excess ABG Hemoglobin Oxyhemoglobin Sodium Potassium 5.2 H Chloride Carbon Dioxide BUN Creatinine Glucose POC Glucose 123 H 125 H Calcium Phosphorus Magnesium ALT Alkaline Phosphatase Total Creatine Kinase CK-MB (CK-2) Rel Index Troponin T Albumin LDL Cholesterol Direct PTH Intact Salicylates Acetaminophen Crossmatch 03/11/19 03/12/19 03/12/19 22:52 12:04 18:25 WBC RBC Hgb Hct MCV MCH MCHC RDW Plt Count Lymph % (Auto) [place] % (Auto) Eos % (Auto) Baso % (Auto) Lymph # [place] # Eos # Baso # Seg Neutrophils % Seg Neuts % (Manual) Lymphocytes % (Manual) Eosinophils % (Manual) Seg Neutrophils # Lymphocytes # (Manual) Eosinophils # (Manual) PT INR D-Dimer POC ABG pH POC ABG pCO2 POC ABG pO2 ABG pO2 ABG HCO3 ABG Base Excess ABG Hemoglobin Oxyhemoglobin Sodium Potassium Chloride Carbon Dioxide BUN Creatinine Glucose POC Glucose 110 H 106 H 118 H Calcium Phosphorus Magnesium ALT Alkaline Phosphatase Total Creatine Kinase CK-MB (CK-2) Rel Index Troponin T Albumin LDL Cholesterol Direct PTH Intact Salicylates Acetaminophen Crossmatch 03/12/19 03/13/19 03/13/19 23:36 04:38 04:38 WBC RBC 2.95 L Hgb 7.9 L Hct 24.9 L MCV MCH 27 L MCHC RDW 19.9 H Plt Count Lymph % (Auto) 11.1 L [place] % (Auto) 8.1 H Eos % (Auto) 4.4 H Baso % (Auto) Lymph # 0.9 L [place] # Eos # Baso # Seg Neutrophils % 75.4 H Seg Neuts % (Manual) Lymphocytes % (Manual) Eosinophils % (Manual) Seg Neutrophils # Lymphocytes # (Manual) Eosinophils # (Manual) PT INR D-Dimer POC ABG pH POC ABG pCO2 POC ABG pO2 ABG pO2 ABG HCO3 ABG Base Excess ABG Hemoglobin Oxyhemoglobin Sodium 136 L Potassium 5.1 H Chloride 93.8 L Carbon Dioxide BUN 48 H Creatinine 2.7 H Glucose 102 H POC Glucose 115 H Calcium Phosphorus Magnesium ALT < 5 L Alkaline Phosphatase 143 H Total Creatine Kinase CK-MB (CK-2) Rel Index Troponin T Albumin 2.5 L LDL Cholesterol Direct PTH Intact Salicylates Acetaminophen Crossmatch 03/13/19 03/13/19 03/13/19 05:33 13:37 18:03 WBC RBC Hgb Hct MCV MCH MCHC RDW Plt Count Lymph % (Auto) [place] % (Auto) Eos % (Auto) Baso % (Auto) Lymph # [place] # Eos # Baso # Seg Neutrophils % Seg Neuts % (Manual) Lymphocytes % (Manual) Eosinophils % (Manual) Seg Neutrophils # Lymphocytes # (Manual) Eosinophils # (Manual) PT INR D-Dimer POC ABG pH POC ABG pCO2 POC ABG pO2 ABG pO2 ABG HCO3 ABG Base Excess ABG Hemoglobin Oxyhemoglobin Sodium Potassium Chloride Carbon Dioxide BUN Creatinine Glucose POC Glucose 140 H 150 H 158 H Calcium Phosphorus Magnesium ALT Alkaline Phosphatase Total Creatine Kinase CK-MB (CK-2) Rel Index Troponin T Albumin LDL Cholesterol Direct PTH Intact Salicylates Acetaminophen Crossmatch 03/13/19 03/14/19 03/14/19 23:32 05:24 12:20 WBC RBC Hgb Hct MCV MCH MCHC RDW Plt Count Lymph % (Auto) [place] % (Auto) Eos % (Auto) Baso % (Auto) Lymph # [place] # Eos # Baso # Seg Neutrophils % Seg Neuts % (Manual) Lymphocytes % (Manual) Eosinophils % (Manual) Seg Neutrophils # Lymphocytes # (Manual) Eosinophils # (Manual) PT INR D-Dimer POC ABG pH POC ABG pCO2 POC ABG pO2 ABG pO2 ABG HCO3 ABG Base Excess ABG Hemoglobin Oxyhemoglobin Sodium Potassium Chloride Carbon Dioxide BUN Creatinine Glucose POC Glucose 162 H 146 H 127 H Calcium Phosphorus Magnesium ALT Alkaline Phosphatase Total Creatine Kinase CK-MB (CK-2) Rel Index Troponin T Albumin LDL Cholesterol Direct PTH Intact Salicylates Acetaminophen Crossmatch 03/14/19 03/14/19 03/15/19 18:05 23:57 04:38 WBC 12.8 H RBC 3.11 L Hgb 8.1 L Hct 26.5 L MCV MCH 26 L MCHC 31 L RDW 19.7 H Plt Count Lymph % (Auto) 4.4 L [place] % (Auto) 7.4 H Eos % (Auto) Baso % (Auto) Lymph # 0.6 L [place] # 0.9 H Eos # Baso # Seg Neutrophils % 87.3 H Seg Neuts % (Manual) Lymphocytes % (Manual) Eosinophils % (Manual) Seg Neutrophils # 11.2 H Lymphocytes # (Manual) Eosinophils # (Manual) PT INR D-Dimer POC ABG pH POC ABG pCO2 POC ABG pO2 ABG pO2 ABG HCO3 ABG Base Excess ABG Hemoglobin Oxyhemoglobin Sodium Potassium Chloride Carbon Dioxide BUN Creatinine Glucose POC Glucose 142 H 155 H Calcium Phosphorus Magnesium ALT Alkaline Phosphatase Total Creatine Kinase CK-MB (CK-2) Rel Index Troponin T Albumin LDL Cholesterol Direct PTH Intact Salicylates Acetaminophen Crossmatch 03/15/19 03/15/19 03/15/19 04:38 05:31 11:32 WBC RBC Hgb Hct MCV MCH MCHC RDW Plt Count Lymph % (Auto) [place] % (Auto) Eos % (Auto) Baso % (Auto) Lymph # [place] # Eos # Baso # Seg Neutrophils % Seg Neuts % (Manual) Lymphocytes % (Manual) Eosinophils % (Manual) Seg Neutrophils # Lymphocytes # (Manual) Eosinophils # (Manual) PT INR D-Dimer POC ABG pH POC ABG pCO2 POC ABG pO2 ABG pO2 ABG HCO3 ABG Base Excess ABG Hemoglobin Oxyhemoglobin Sodium 135 L Potassium Chloride 91.9 L Carbon Dioxide BUN 54 H Creatinine 2.8 H Glucose 128 H POC Glucose 160 H 109 H Calcium 11.1 H Phosphorus Magnesium ALT Alkaline Phosphatase 161 H Total Creatine Kinase CK-MB (CK-2) Rel Index Troponin T Albumin 2.3 L LDL Cholesterol Direct PTH Intact Salicylates Acetaminophen Crossmatch 03/15/19 03/15/19 03/16/19 18:15 23:41 05:40 WBC RBC Hgb Hct MCV MCH MCHC RDW Plt Count Lymph % (Auto) [place] % (Auto) Eos % (Auto) Baso % (Auto) Lymph # [place] # Eos # Baso # Seg Neutrophils % Seg Neuts % (Manual) Lymphocytes % (Manual) Eosinophils % (Manual) Seg Neutrophils # Lymphocytes # (Manual) Eosinophils # (Manual) PT INR D-Dimer POC ABG pH POC ABG pCO2 POC ABG pO2 ABG pO2 ABG HCO3 ABG Base Excess ABG Hemoglobin Oxyhemoglobin Sodium Potassium Chloride Carbon Dioxide BUN Creatinine Glucose POC Glucose 151 H 110 H 163 H Calcium Phosphorus Magnesium ALT Alkaline Phosphatase Total Creatine Kinase CK-MB (CK-2) Rel Index Troponin T Albumin LDL Cholesterol Direct PTH Intact Salicylates Acetaminophen Crossmatch 03/16/19 03/16/19 03/16/19 11:55 17:04 23:58 WBC RBC Hgb Hct MCV MCH MCHC RDW Plt Count Lymph % (Auto) [place] % (Auto) Eos % (Auto) Baso % (Auto) Lymph # [place] # Eos # Baso # Seg Neutrophils % Seg Neuts % (Manual) Lymphocytes % (Manual) Eosinophils % (Manual) Seg Neutrophils # Lymphocytes # (Manual) Eosinophils # (Manual) PT INR D-Dimer POC ABG pH POC ABG pCO2 POC ABG pO2 ABG pO2 ABG HCO3 ABG Base Excess ABG Hemoglobin Oxyhemoglobin Sodium Potassium Chloride Carbon Dioxide BUN Creatinine Glucose POC Glucose 114 H 147 H 192 H Calcium Phosphorus Magnesium ALT Alkaline Phosphatase Total Creatine Kinase CK-MB (CK-2) Rel Index Troponin T Albumin LDL Cholesterol Direct PTH Intact Salicylates Acetaminophen Crossmatch 03/17/19 03/17/19 03/17/19 05:53 11:17 17:01 WBC RBC Hgb Hct MCV MCH MCHC RDW Plt Count Lymph % (Auto) [place] % (Auto) Eos % (Auto) Baso % (Auto) Lymph # [place] # Eos # Baso # Seg Neutrophils % Seg Neuts % (Manual) Lymphocytes % (Manual) Eosinophils % (Manual) Seg Neutrophils # Lymphocytes # (Manual) Eosinophils # (Manual) PT INR D-Dimer POC ABG pH POC ABG pCO2 POC ABG pO2 ABG pO2 ABG HCO3 ABG Base Excess ABG Hemoglobin Oxyhemoglobin Sodium Potassium Chloride Carbon Dioxide BUN Creatinine Glucose POC Glucose 151 H 161 H 152 H Calcium Phosphorus Magnesium ALT Alkaline Phosphatase Total Creatine Kinase CK-MB (CK-2) Rel Index Troponin T Albumin LDL Cholesterol Direct PTH Intact Salicylates Acetaminophen Crossmatch 03/17/19 03/18/19 03/18/19 21:47 04:15 04:44 WBC RBC Hgb Hct MCV MCH MCHC RDW Plt Count Lymph % (Auto) [place] % (Auto) Eos % (Auto) Baso % (Auto) Lymph # [place] # Eos # Baso # Seg Neutrophils % Seg Neuts % (Manual) Lymphocytes % (Manual) Eosinophils % (Manual) Seg Neutrophils # Lymphocytes # (Manual) Eosinophils # (Manual) PT INR D-Dimer POC ABG pH POC ABG pCO2 POC ABG pO2 ABG pO2 102.8 H ABG HCO3 28.3 H ABG Base Excess ABG Hemoglobin 10.4 L Oxyhemoglobin 94.5 L Sodium Potassium Chloride Carbon Dioxide BUN Creatinine Glucose POC Glucose 170 H 150 H Calcium Phosphorus Magnesium ALT Alkaline Phosphatase Total Creatine Kinase CK-MB (CK-2) Rel Index Troponin T Albumin LDL Cholesterol Direct PTH Intact Salicylates Acetaminophen Crossmatch 03/18/19 03/18/19 03/18/19 06:38 12:12 17:47 WBC RBC Hgb Hct MCV MCH MCHC RDW Plt Count Lymph % (Auto) [place] % (Auto) Eos % (Auto) Baso % (Auto) Lymph # [place] # Eos # Baso # Seg Neutrophils % Seg Neuts % (Manual) Lymphocytes % (Manual) Eosinophils % (Manual) Seg Neutrophils # Lymphocytes # (Manual) Eosinophils # (Manual) PT INR D-Dimer POC ABG pH 7.510 H POC ABG pCO2 POC ABG pO2 164 H ABG pO2 ABG HCO3 ABG Base Excess ABG Hemoglobin Oxyhemoglobin Sodium Potassium Chloride Carbon Dioxide BUN Creatinine Glucose POC Glucose 145 H 149 H Calcium Phosphorus Magnesium ALT Alkaline Phosphatase Total Creatine Kinase CK-MB (CK-2) Rel Index Troponin T Albumin LDL Cholesterol Direct PTH Intact Salicylates Acetaminophen Crossmatch 0803/19/19 03/19/19 23:25 01:11 04:23 WBC 15.6 H RBC 2.51 L Hgb 6.5 L Hct 21.6 L MCV MCH 26 L MCHC 30 L RDW 19.8 H Plt Count Lymph % (Auto) 6.0 L [place] % (Auto) Eos % (Auto) Baso % (Auto) Lymph # 0.9 L [place] # 1.0 H Eos # Baso # Seg Neutrophils % 85.5 H Seg Neuts % (Manual) Lymphocytes % (Manual) Eosinophils % (Manual) Seg Neutrophils # 13.4 H Lymphocytes # (Manual) Eosinophils # (Manual) PT INR D-Dimer POC ABG pH POC ABG pCO2 POC ABG pO2 ABG pO2 78.3 L ABG HCO3 30.7 H ABG Base Excess 5.8 H ABG Hemoglobin 5.8 L Oxyhemoglobin 94.6 L Sodium Potassium Chloride Carbon Dioxide BUN Creatinine Glucose POC Glucose 190 H Calcium Phosphorus Magnesium ALT Alkaline Phosphatase Total Creatine Kinase CK-MB (CK-2) Rel Index Troponin T Albumin LDL Cholesterol Direct PTH Intact Salicylates Acetaminophen Crossmatch 03/19/19 03/19/19 03/19/19 05:22 05:35 08:54 WBC RBC Hgb Hct MCV MCH MCHC RDW Plt Count Lymph % (Auto) [place] % (Auto) Eos % (Auto) Baso % (Auto) Lymph # [place] # Eos # Baso # Seg Neutrophils % Seg Neuts % (Manual) Lymphocytes % (Manual) Eosinophils % (Manual) Seg Neutrophils # Lymphocytes # (Manual) Eosinophils # (Manual) PT INR D-Dimer POC ABG pH POC ABG pCO2 POC ABG pO2 ABG pO2 ABG HCO3 ABG Base Excess ABG Hemoglobin Oxyhemoglobin Sodium Potassium Chloride Carbon Dioxide BUN Creatinine Glucose POC Glucose 167 H Calcium Phosphorus Magnesium ALT Alkaline Phosphatase Total Creatine Kinase CK-MB (CK-2) Rel Index Troponin T Albumin LDL Cholesterol Direct PTH Intact Salicylates Acetaminophen Crossmatch See Detail See Detail 03/19/19 03/19/19 03/19/19 12:36 17:02 23:25 WBC RBC Hgb Hct MCV MCH MCHC RDW Plt Count Lymph % (Auto) [place] % (Auto) Eos % (Auto) Baso % (Auto) Lymph # [place] # Eos # Baso # Seg Neutrophils % Seg Neuts % (Manual) Lymphocytes % (Manual) Eosinophils % (Manual) Seg Neutrophils # Lymphocytes # (Manual) Eosinophils # (Manual) PT INR D-Dimer POC ABG pH POC ABG pCO2 POC ABG pO2 ABG pO2 ABG HCO3 ABG Base Excess ABG Hemoglobin Oxyhemoglobin Sodium Potassium Chloride Carbon Dioxide BUN Creatinine Glucose POC Glucose 167 H 135 H 136 H Calcium Phosphorus Magnesium ALT Alkaline Phosphatase Total Creatine Kinase CK-MB (CK-2) Rel Index Troponin T Albumin LDL Cholesterol Direct PTH Intact Salicylates Acetaminophen Crossmatch 03/20/19 03/20/19 03/20/19 05:38 08:40 08:40 WBC RBC 2.61 L Hgb 7.1 L Hct 22.0 L MCV MCH 27 L MCHC RDW 19.6 H Plt Count Lymph % (Auto) 8.2 L [place] % (Auto) 8.3 H Eos % (Auto) 5.7 H Baso % (Auto) Lymph # 0.8 L [place] # Eos # 0.5 H Baso # Seg Neutrophils % 77.3 H Seg Neuts % (Manual) Lymphocytes % (Manual) Eosinophils % (Manual) Seg Neutrophils # Lymphocytes # (Manual) Eosinophils # (Manual) PT INR D-Dimer POC ABG pH POC ABG pCO2 POC ABG pO2 ABG pO2 ABG HCO3 ABG Base Excess ABG Hemoglobin Oxyhemoglobin Sodium Potassium Chloride 95.9 L Carbon Dioxide BUN 69 H Creatinine 2.8 H Glucose 115 H POC Glucose 134 H Calcium 10.5 H Phosphorus Magnesium ALT Alkaline Phosphatase Total Creatine Kinase CK-MB (CK-2) Rel Index Troponin T Albumin LDL Cholesterol Direct PTH Intact Salicylates Acetaminophen Crossmatch 03/20/19 03/20/19 03/20/19 12:13 18:04 23:49 WBC RBC Hgb Hct MCV MCH MCHC RDW Plt Count Lymph % (Auto) [place] % (Auto) Eos % (Auto) Baso % (Auto) Lymph # [place] # Eos # Baso # Seg Neutrophils % Seg Neuts % (Manual) Lymphocytes % (Manual) Eosinophils % (Manual) Seg Neutrophils # Lymphocytes # (Manual) Eosinophils # (Manual) PT INR D-Dimer POC ABG pH POC ABG pCO2 POC ABG pO2 ABG pO2 ABG HCO3 ABG Base Excess ABG Hemoglobin Oxyhemoglobin Sodium Potassium Chloride Carbon Dioxide BUN Creatinine Glucose POC Glucose 144 H 165 H 172 H Calcium Phosphorus Magnesium ALT Alkaline Phosphatase Total Creatine Kinase CK-MB (CK-2) Rel Index Troponin T Albumin LDL Cholesterol Direct PTH Intact Salicylates Acetaminophen Crossmatch 03/21/19 03/21/19 03/21/19 05:00 06:29 06:30 WBC RBC 2.72 L Hgb 7.4 L Hct 22.9 L MCV MCH 27 L MCHC RDW 19.4 H Plt Count Lymph % (Auto) [place] % (Auto) Eos % (Auto) Baso % (Auto) Lymph # [place] # Eos # Baso # Seg Neutrophils % Seg Neuts % (Manual) 81.0 H Lymphocytes % (Manual) 8.0 L Eosinophils % (Manual) 8.0 H Seg Neutrophils # Lymphocytes # (Manual) 0.7 L Eosinophils # (Manual) 0.7 H PT INR D-Dimer POC ABG pH POC ABG pCO2 POC ABG pO2 ABG pO2 ABG HCO3 ABG Base Excess ABG Hemoglobin Oxyhemoglobin Sodium Potassium Chloride Carbon Dioxide 33 H BUN 43 H Creatinine 1.7 H Glucose 145 H POC Glucose 156 H Calcium Phosphorus Magnesium ALT Alkaline Phosphatase 212 H Total Creatine Kinase CK-MB (CK-2) Rel Index Troponin T Albumin 2.2 L LDL Cholesterol Direct PTH Intact Salicylates Acetaminophen Crossmatch 03/21/19 03/21/19 03/22/19 12:02 18:07 00:21 WBC RBC Hgb Hct MCV MCH MCHC RDW Plt Count Lymph % (Auto) [place] % (Auto) Eos % (Auto) Baso % (Auto) Lymph # [place] # Eos # Baso # Seg Neutrophils % Seg Neuts % (Manual) Lymphocytes % (Manual) Eosinophils % (Manual) Seg Neutrophils # Lymphocytes # (Manual) Eosinophils # (Manual) PT INR D-Dimer POC ABG pH POC ABG pCO2 POC ABG pO2 ABG pO2 ABG HCO3 ABG Base Excess ABG Hemoglobin Oxyhemoglobin Sodium Potassium Chloride Carbon Dioxide BUN Creatinine Glucose POC Glucose 163 H 144 H 153 H Calcium Phosphorus Magnesium ALT Alkaline Phosphatase Total Creatine Kinase CK-MB (CK-2) Rel Index Troponin T Albumin LDL Cholesterol Direct PTH Intact Salicylates Acetaminophen Crossmatch 03/22/19 03/22/19 03/22/19 05:23 05:23 05:31 WBC RBC 2.58 L Hgb 7.1 L Hct 21.8 L MCV MCH 27 L MCHC RDW 19.2 H Plt Count Lymph % (Auto) [place] % (Auto) Eos % (Auto) Baso % (Auto) Lymph # [place] # Eos # Baso # Seg Neutrophils % Seg Neuts % (Manual) Lymphocytes % (Manual) Eosinophils % (Manual) Seg Neutrophils # Lymphocytes # (Manual) Eosinophils # (Manual) PT INR D-Dimer POC ABG pH POC ABG pCO2 POC ABG pO2 ABG pO2 ABG HCO3 ABG Base Excess ABG Hemoglobin Oxyhemoglobin Sodium 147 H Potassium Chloride Carbon Dioxide BUN 68 H Creatinine 2.5 H Glucose POC Glucose 116 H Calcium 10.3 H Phosphorus Magnesium ALT Alkaline Phosphatase Total Creatine Kinase CK-MB (CK-2) Rel Index Troponin T Albumin LDL Cholesterol Direct PTH Intact Salicylates Acetaminophen Crossmatch 03/22/19 03/22/19 03/22/19 08:48 12:37 17:35 WBC RBC Hgb Hct MCV MCH MCHC RDW Plt Count Lymph % (Auto) [place] % (Auto) Eos % (Auto) Baso % (Auto) Lymph # [place] # Eos # Baso # Seg Neutrophils % Seg Neuts % (Manual) Lymphocytes % (Manual) Eosinophils % (Manual) Seg Neutrophils # Lymphocytes # (Manual) Eosinophils # (Manual) PT INR D-Dimer POC ABG pH POC ABG pCO2 POC ABG pO2 ABG pO2 ABG HCO3 ABG Base Excess ABG Hemoglobin Oxyhemoglobin Sodium Potassium Chloride Carbon Dioxide BUN Creatinine Glucose POC Glucose 143 H 155 H Calcium Phosphorus Magnesium ALT Alkaline Phosphatase Total Creatine Kinase CK-MB (CK-2) Rel Index Troponin T Albumin LDL Cholesterol Direct PTH Intact Salicylates Acetaminophen Crossmatch See Detail 03/23/19 03/23/19 03/23/19 00:07 04:00 04:00 WBC 11.2 H RBC 2.32 L Hgb 6.4 L Hct 19.7 L* MCV MCH MCHC RDW 19.4 H Plt Count Lymph % (Auto) [place] % (Auto) Eos % (Auto) Baso % (Auto) Lymph # [place] # Eos # Baso # Seg Neutrophils % Seg Neuts % (Manual) Lymphocytes % (Manual) Eosinophils % (Manual) Seg Neutrophils # Lymphocytes # (Manual) Eosinophils # (Manual) PT INR D-Dimer POC ABG pH POC ABG pCO2 POC ABG pO2 ABG pO2 ABG HCO3 ABG Base Excess ABG Hemoglobin Oxyhemoglobin Sodium 147 H Potassium 5.2 H Chloride Carbon Dioxide BUN 86 H Creatinine 3.2 H Glucose 128 H POC Glucose 135 H Calcium 10.3 H Phosphorus Magnesium ALT Alkaline Phosphatase Total Creatine Kinase CK-MB (CK-2) Rel Index Troponin T Albumin LDL Cholesterol Direct PTH Intact Salicylates Acetaminophen Crossmatch 03/23/19 03/23/19 03/23/19 05:21 11:36 11:36 WBC RBC Hgb 7.9 L Hct 25.0 L MCV MCH MCHC RDW Plt Count Lymph % (Auto) [place] % (Auto) Eos % (Auto) Baso % (Auto) Lymph # [place] # Eos # Baso # Seg Neutrophils % Seg Neuts % (Manual) Lymphocytes % (Manual) Eosinophils % (Manual) Seg Neutrophils # Lymphocytes # (Manual) Eosinophils # (Manual) PT INR D-Dimer POC ABG pH POC ABG pCO2 POC ABG pO2 ABG pO2 ABG HCO3 ABG Base Excess ABG Hemoglobin Oxyhemoglobin Sodium Potassium Chloride Carbon Dioxide BUN Creatinine Glucose POC Glucose 132 H 147 H Calcium Phosphorus Magnesium ALT Alkaline Phosphatase Total Creatine Kinase CK-MB (CK-2) Rel Index Troponin T Albumin LDL Cholesterol Direct PTH Intact Salicylates Acetaminophen Crossmatch 03/23/19 03/24/19 03/24/19 17:31 01:22 04:20 WBC 12.2 H RBC 3.05 L Hgb 8.3 L Hct 25.9 L MCV MCH 27 L MCHC RDW 18.7 H Plt Count Lymph % (Auto) [place] % (Auto) Eos % (Auto) Baso % (Auto) Lymph # [place] # Eos # Baso # Seg Neutrophils % Seg Neuts % (Manual) Lymphocytes % (Manual) Eosinophils % (Manual) Seg Neutrophils # Lymphocytes # (Manual) Eosinophils # (Manual) PT INR D-Dimer POC ABG pH POC ABG pCO2 POC ABG pO2 ABG pO2 ABG HCO3 ABG Base Excess ABG Hemoglobin Oxyhemoglobin Sodium Potassium Chloride Carbon Dioxide BUN Creatinine Glucose POC Glucose 182 H 113 H Calcium Phosphorus Magnesium ALT Alkaline Phosphatase Total Creatine Kinase CK-MB (CK-2) Rel Index Troponin T Albumin LDL Cholesterol Direct PTH Intact Salicylates Acetaminophen Crossmatch 03/24/19 03/24/19 03/24/19 04:20 11:59 18:14 WBC RBC Hgb Hct MCV MCH MCHC RDW Plt Count Lymph % (Auto) [place] % (Auto) Eos % (Auto) Baso % (Auto) Lymph # [place] # Eos # Baso # Seg Neutrophils % Seg Neuts % (Manual) Lymphocytes % (Manual) Eosinophils % (Manual) Seg Neutrophils # Lymphocytes # (Manual) Eosinophils # (Manual) PT INR D-Dimer POC ABG pH POC ABG pCO2 POC ABG pO2 ABG pO2 ABG HCO3 ABG Base Excess ABG Hemoglobin Oxyhemoglobin Sodium Potassium Chloride 94.8 L Carbon Dioxide 32 H BUN 53 H Creatinine 2.3 H Glucose POC Glucose 163 H 134 H Calcium Phosphorus Magnesium ALT Alkaline Phosphatase Total Creatine Kinase CK-MB (CK-2) Rel Index Troponin T Albumin LDL Cholesterol Direct PTH Intact Salicylates Acetaminophen Crossmatch 03/24/19 03/25/19 03/25/19 23:15 05:52 12:02 WBC RBC Hgb Hct MCV MCH MCHC RDW Plt Count Lymph % (Auto) [place] % (Auto) Eos % (Auto) Baso % (Auto) Lymph # [place] # Eos # Baso # Seg Neutrophils % Seg Neuts % (Manual) Lymphocytes % (Manual) Eosinophils % (Manual) Seg Neutrophils # Lymphocytes # (Manual) Eosinophils # (Manual) PT INR D-Dimer POC ABG pH POC ABG pCO2 POC ABG pO2 ABG pO2 ABG HCO3 ABG Base Excess ABG Hemoglobin Oxyhemoglobin Sodium Potassium Chloride Carbon Dioxide BUN Creatinine Glucose POC Glucose 129 H 123 H 125 H Calcium Phosphorus Magnesium ALT Alkaline Phosphatase Total Creatine Kinase CK-MB (CK-2) Rel Index Troponin T Albumin LDL Cholesterol Direct PTH Intact Salicylates Acetaminophen Crossmatch 03/25/19 03/26/19 03/26/19 17:27 00:30 05:35 WBC RBC 3.01 L Hgb 8.1 L Hct 25.7 L MCV MCH 27 L MCHC RDW 19.2 H Plt Count Lymph % (Auto) 11.4 L [place] % (Auto) Eos % (Auto) 8.0 H Baso % (Auto) Lymph # 1.0 L [place] # Eos # 0.7 H Baso # Seg Neutrophils % 73.9 H Seg Neuts % (Manual) Lymphocytes % (Manual) Eosinophils % (Manual) Seg Neutrophils # Lymphocytes # (Manual) Eosinophils # (Manual) PT INR D-Dimer POC ABG pH POC ABG pCO2 POC ABG pO2 ABG pO2 ABG HCO3 ABG Base Excess ABG Hemoglobin Oxyhemoglobin Sodium Potassium Chloride Carbon Dioxide BUN Creatinine Glucose POC Glucose 130 H 129 H Calcium Phosphorus Magnesium ALT Alkaline Phosphatase Total Creatine Kinase CK-MB (CK-2) Rel Index Troponin T Albumin LDL Cholesterol Direct PTH Intact Salicylates Acetaminophen Crossmatch 03/26/19 03/26/19 03/26/19 05:35 05:45 12:16 WBC RBC Hgb Hct MCV MCH MCHC RDW Plt Count Lymph % (Auto) [place] % (Auto) Eos % (Auto) Baso % (Auto) Lymph # [place] # Eos # Baso # Seg Neutrophils % Seg Neuts % (Manual) Lymphocytes % (Manual) Eosinophils % (Manual) Seg Neutrophils # Lymphocytes # (Manual) Eosinophils # (Manual) PT INR D-Dimer POC ABG pH POC ABG pCO2 POC ABG pO2 ABG pO2 ABG HCO3 ABG Base Excess ABG Hemoglobin Oxyhemoglobin Sodium Potassium Chloride 94.9 L Carbon Dioxide 31 H BUN 44 H Creatinine 2.0 H Glucose POC Glucose 118 H 107 H Calcium Phosphorus Magnesium ALT Alkaline Phosphatase Total Creatine Kinase CK-MB (CK-2) Rel Index Troponin T Albumin LDL Cholesterol Direct PTH Intact Salicylates Acetaminophen Crossmatch 03/26/19 03/27/19 03/27/19 17:56 00:36 05:37 WBC RBC Hgb Hct MCV MCH MCHC RDW Plt Count Lymph % (Auto) [place] % (Auto) Eos % (Auto) Baso % (Auto) Lymph # [place] # Eos # Baso # Seg Neutrophils % Seg Neuts % (Manual) Lymphocytes % (Manual) Eosinophils % (Manual) Seg Neutrophils # Lymphocytes # (Manual) Eosinophils # (Manual) PT INR D-Dimer POC ABG pH POC ABG pCO2 POC ABG pO2 ABG pO2 ABG HCO3 ABG Base Excess ABG Hemoglobin Oxyhemoglobin Sodium Potassium Chloride Carbon Dioxide BUN Creatinine Glucose POC Glucose 107 H 110 H 122 H Calcium Phosphorus Magnesium ALT Alkaline Phosphatase Total Creatine Kinase CK-MB (CK-2) Rel Index Troponin T Albumin LDL Cholesterol Direct PTH Intact Salicylates Acetaminophen Crossmatch 03/27/19 03/27/19 03/28/19 11:22 18:00 05:17 WBC RBC Hgb Hct MCV MCH MCHC RDW Plt Count Lymph % (Auto) [place] % (Auto) Eos % (Auto) Baso % (Auto) Lymph # [place] # Eos # Baso # Seg Neutrophils % Seg Neuts % (Manual) Lymphocytes % (Manual) Eosinophils % (Manual) Seg Neutrophils # Lymphocytes # (Manual) Eosinophils # (Manual) PT INR D-Dimer POC ABG pH POC ABG pCO2 POC ABG pO2 ABG pO2 ABG HCO3 ABG Base Excess ABG Hemoglobin Oxyhemoglobin Sodium Potassium Chloride Carbon Dioxide BUN Creatinine Glucose POC Glucose 120 H 111 H 107 H Calcium Phosphorus Magnesium ALT Alkaline Phosphatase Total Creatine Kinase CK-MB (CK-2) Rel Index Troponin T Albumin LDL Cholesterol Direct PTH Intact Salicylates Acetaminophen Crossmatch 03/28/19 03/28/19 03/29/19 12:27 18:08 05:47 WBC RBC Hgb Hct MCV MCH MCHC RDW Plt Count Lymph % (Auto) [place] % (Auto) Eos % (Auto) Baso % (Auto) Lymph # [place] # Eos # Baso # Seg Neutrophils % Seg Neuts % (Manual) Lymphocytes % (Manual) Eosinophils % (Manual) Seg Neutrophils # Lymphocytes # (Manual) Eosinophils # (Manual) PT INR D-Dimer POC ABG pH POC ABG pCO2 POC ABG pO2 ABG pO2 ABG HCO3 ABG Base Excess ABG Hemoglobin Oxyhemoglobin Sodium Potassium Chloride Carbon Dioxide BUN Creatinine Glucose POC Glucose 114 H 121 H 112 H Calcium Phosphorus Magnesium ALT Alkaline Phosphatase Total Creatine Kinase CK-MB (CK-2) Rel Index Troponin T Albumin LDL Cholesterol Direct PTH Intact Salicylates Acetaminophen Crossmatch 03/29/19 03/29/19 03/30/19 12:14 18:08 00:31 WBC RBC Hgb Hct MCV MCH MCHC RDW Plt Count Lymph % (Auto) [place] % (Auto) Eos % (Auto) Baso % (Auto) Lymph # [place] # Eos # Baso # Seg Neutrophils % Seg Neuts % (Manual) Lymphocytes % (Manual) Eosinophils % (Manual) Seg Neutrophils # Lymphocytes # (Manual) Eosinophils # (Manual) PT INR D-Dimer POC ABG pH POC ABG pCO2 POC ABG pO2 ABG pO2 ABG HCO3 ABG Base Excess ABG Hemoglobin Oxyhemoglobin Sodium Potassium Chloride Carbon Dioxide BUN Creatinine Glucose POC Glucose 117 H 140 H 114 H Calcium Phosphorus Magnesium ALT Alkaline Phosphatase Total Creatine Kinase CK-MB (CK-2) Rel Index Troponin T Albumin LDL Cholesterol Direct PTH Intact Salicylates Acetaminophen Crossmatch 03/30/19 03/30/19 03/30/19 10:13 10:13 23:53 WBC RBC 2.81 L Hgb 7.7 L Hct 24.3 L MCV MCH 27 L MCHC RDW 19.0 H Plt Count Lymph % (Auto) 12.2 L [place] % (Auto) Eos % (Auto) 7.9 H Baso % (Auto) Lymph # 1.0 L [place] # Eos # 0.6 H Baso # Seg Neutrophils % 72.3 H Seg Neuts % (Manual) Lymphocytes % (Manual) Eosinophils % (Manual) Seg Neutrophils # Lymphocytes # (Manual) Eosinophils # (Manual) PT INR D-Dimer POC ABG pH POC ABG pCO2 POC ABG pO2 ABG pO2 ABG HCO3 ABG Base Excess ABG Hemoglobin Oxyhemoglobin Sodium Potassium 5.1 H Chloride 96.5 L Carbon Dioxide BUN 73 H Creatinine 3.9 H D Glucose POC Glucose 114 H Calcium 10.3 H Phosphorus 6.30 H Magnesium 2.70 H ALT Alkaline Phosphatase 185 H Total Creatine Kinase CK-MB (CK-2) Rel Index Troponin T Albumin 2.6 L LDL Cholesterol Direct PTH Intact Salicylates Acetaminophen Crossmatch 03/31/19 03/31/19 03/31/19 05:45 10:26 10:26 WBC RBC 3.01 L Hgb 8.2 L Hct 26.4 L MCV MCH 27 L MCHC 31 L RDW 20.3 H Plt Count Lymph % (Auto) 13.3 L [place] % (Auto) Eos % (Auto) 7.2 H Baso % (Auto) Lymph # 1.1 L [place] # Eos # 0.6 H Baso # Seg Neutrophils % 72.1 H Seg Neuts % (Manual) Lymphocytes % (Manual) Eosinophils % (Manual) Seg Neutrophils # Lymphocytes # (Manual) Eosinophils # (Manual) PT INR D-Dimer POC ABG pH POC ABG pCO2 POC ABG pO2 ABG pO2 ABG HCO3 ABG Base Excess ABG Hemoglobin Oxyhemoglobin Sodium Potassium Chloride 96.9 L Carbon Dioxide 33 H BUN 37 H Creatinine 2.4 H Glucose POC Glucose 108 H Calcium 10.3 H Phosphorus Magnesium ALT Alkaline Phosphatase Total Creatine Kinase CK-MB (CK-2) Rel Index Troponin T Albumin LDL Cholesterol Direct PTH Intact Salicylates Acetaminophen Crossmatch 03/31/19 04/01/19 04/01/19 12:38 05:48 12:06 WBC RBC Hgb Hct MCV MCH MCHC RDW Plt Count Lymph % (Auto) [place] % (Auto) Eos % (Auto) Baso % (Auto) Lymph # [place] # Eos # Baso # Seg Neutrophils % Seg Neuts % (Manual) Lymphocytes % (Manual) Eosinophils % (Manual) Seg Neutrophils # Lymphocytes # (Manual) Eosinophils # (Manual) PT INR D-Dimer POC ABG pH POC ABG pCO2 POC ABG pO2 ABG pO2 ABG HCO3 ABG Base Excess ABG Hemoglobin Oxyhemoglobin Sodium Potassium Chloride Carbon Dioxide BUN Creatinine Glucose POC Glucose 108 H 114 H 111 H Calcium Phosphorus Magnesium ALT Alkaline Phosphatase Total Creatine Kinase CK-MB (CK-2) Rel Index Troponin T Albumin LDL Cholesterol Direct PTH Intact Salicylates Acetaminophen Crossmatch 04/01/19 04/02/19 04/04/19 18:24 00:36 23:55 WBC RBC Hgb Hct MCV MCH MCHC RDW Plt Count Lymph % (Auto) [place] % (Auto) Eos % (Auto) Baso % (Auto) Lymph # [place] # Eos # Baso # Seg Neutrophils % Seg Neuts % (Manual) Lymphocytes % (Manual) Eosinophils % (Manual) Seg Neutrophils # Lymphocytes # (Manual) Eosinophils # (Manual) PT INR D-Dimer POC ABG pH POC ABG pCO2 POC ABG pO2 ABG pO2 ABG HCO3 ABG Base Excess ABG Hemoglobin Oxyhemoglobin Sodium Potassium Chloride Carbon Dioxide BUN Creatinine Glucose POC Glucose 113 H 117 H 109 H Calcium Phosphorus Magnesium ALT Alkaline Phosphatase Total Creatine Kinase CK-MB (CK-2) Rel Index Troponin T Albumin LDL Cholesterol Direct PTH Intact Salicylates Acetaminophen Crossmatch 04/06/19 04/06/19 04/06/19 00:11 06:02 23:30 WBC RBC Hgb Hct MCV MCH MCHC RDW Plt Count Lymph % (Auto) [place] % (Auto) Eos % (Auto) Baso % (Auto) Lymph # [place] # Eos # Baso # Seg Neutrophils % Seg Neuts % (Manual) Lymphocytes % (Manual) Eosinophils % (Manual) Seg Neutrophils # Lymphocytes # (Manual) Eosinophils # (Manual) PT INR D-Dimer POC ABG pH POC ABG pCO2 POC ABG pO2 ABG pO2 ABG HCO3 ABG Base Excess ABG Hemoglobin Oxyhemoglobin Sodium Potassium Chloride Carbon Dioxide BUN Creatinine Glucose POC Glucose 116 H 112 H 112 H Calcium Phosphorus Magnesium ALT Alkaline Phosphatase Total Creatine Kinase CK-MB (CK-2) Rel Index Troponin T Albumin LDL Cholesterol Direct PTH Intact Salicylates Acetaminophen Crossmatch 04/08/19 04/08/19 04/08/19 02:23 06:19 13:01 WBC RBC Hgb Hct MCV MCH MCHC RDW Plt Count Lymph % (Auto) [place] % (Auto) Eos % (Auto) Baso % (Auto) Lymph # [place] # Eos # Baso # Seg Neutrophils % Seg Neuts % (Manual) Lymphocytes % (Manual) Eosinophils % (Manual) Seg Neutrophils # Lymphocytes # (Manual) Eosinophils # (Manual) PT INR D-Dimer POC ABG pH POC ABG pCO2 POC ABG pO2 ABG pO2 ABG HCO3 ABG Base Excess ABG Hemoglobin Oxyhemoglobin Sodium Potassium Chloride Carbon Dioxide BUN Creatinine Glucose POC Glucose 144 H 126 H 118 H Calcium Phosphorus Magnesium ALT Alkaline Phosphatase Total Creatine Kinase CK-MB (CK-2) Rel Index Troponin T Albumin LDL Cholesterol Direct PTH Intact Salicylates Acetaminophen Crossmatch 04/08/19 04/09/19 04/10/19 23:28 05:52 06:34 WBC RBC Hgb Hct MCV MCH MCHC RDW Plt Count Lymph % (Auto) [place] % (Auto) Eos % (Auto) Baso % (Auto) Lymph # [place] # Eos # Baso # Seg Neutrophils % Seg Neuts % (Manual) Lymphocytes % (Manual) Eosinophils % (Manual) Seg Neutrophils # Lymphocytes # (Manual) Eosinophils # (Manual) PT INR D-Dimer POC ABG pH POC ABG pCO2 POC ABG pO2 ABG pO2 ABG HCO3 ABG Base Excess ABG Hemoglobin Oxyhemoglobin Sodium Potassium Chloride Carbon Dioxide BUN Creatinine Glucose POC Glucose 119 H 116 H 114 H Calcium Phosphorus Magnesium ALT Alkaline Phosphatase Total Creatine Kinase CK-MB (CK-2) Rel Index Troponin T Albumin LDL Cholesterol Direct PTH Intact Salicylates Acetaminophen Crossmatch 04/10/19 04/10/19 04/11/19 12:34 18:59 00:36 WBC RBC Hgb Hct MCV MCH MCHC RDW Plt Count Lymph % (Auto) [place] % (Auto) Eos % (Auto) Baso % (Auto) Lymph # [place] # Eos # Baso # Seg Neutrophils % Seg Neuts % (Manual) Lymphocytes % (Manual) Eosinophils % (Manual) Seg Neutrophils # Lymphocytes # (Manual) Eosinophils # (Manual) PT INR D-Dimer POC ABG pH POC ABG pCO2 POC ABG pO2 ABG pO2 ABG HCO3 ABG Base Excess ABG Hemoglobin Oxyhemoglobin Sodium Potassium Chloride Carbon Dioxide BUN Creatinine Glucose POC Glucose 112 H 109 H 124 H Calcium Phosphorus Magnesium ALT Alkaline Phosphatase Total Creatine Kinase CK-MB (CK-2) Rel Index Troponin T Albumin LDL Cholesterol Direct PTH Intact Salicylates Acetaminophen Crossmatch 04/11/19 04/11/19 04/12/19 08:01 17:25 02:18 WBC RBC Hgb Hct MCV MCH MCHC RDW Plt Count Lymph % (Auto) [place] % (Auto) Eos % (Auto) Baso % (Auto) Lymph # [place] # Eos # Baso # Seg Neutrophils % Seg Neuts % (Manual) Lymphocytes % (Manual) Eosinophils % (Manual) Seg Neutrophils # Lymphocytes # (Manual) Eosinophils # (Manual) PT INR D-Dimer POC ABG pH POC ABG pCO2 POC ABG pO2 ABG pO2 ABG HCO3 ABG Base Excess ABG Hemoglobin Oxyhemoglobin Sodium Potassium Chloride Carbon Dioxide BUN Creatinine Glucose POC Glucose 118 H 106 H 125 H Calcium Phosphorus Magnesium ALT Alkaline Phosphatase Total Creatine Kinase CK-MB (CK-2) Rel Index Troponin T Albumin LDL Cholesterol Direct PTH Intact Salicylates Acetaminophen Crossmatch 04/12/19 04/12/19 04/12/19 06:24 12:22 17:13 WBC RBC Hgb Hct MCV MCH MCHC RDW Plt Count Lymph % (Auto) [place] % (Auto) Eos % (Auto) Baso % (Auto) Lymph # [place] # Eos # Baso # Seg Neutrophils % Seg Neuts % (Manual) Lymphocytes % (Manual) Eosinophils % (Manual) Seg Neutrophils # Lymphocytes # (Manual) Eosinophils # (Manual) PT INR D-Dimer POC ABG pH POC ABG pCO2 POC ABG pO2 ABG pO2 ABG HCO3 ABG Base Excess ABG Hemoglobin Oxyhemoglobin Sodium Potassium Chloride Carbon Dioxide BUN Creatinine Glucose POC Glucose 128 H 114 H 110 H Calcium Phosphorus Magnesium ALT Alkaline Phosphatase Total Creatine Kinase CK-MB (CK-2) Rel Index Troponin T Albumin LDL Cholesterol Direct PTH Intact Salicylates Acetaminophen Crossmatch 04/13/19 04/13/19 04/13/19 06:59 07:31 07:31 WBC RBC 3.34 L Hgb 8.9 L Hct 28.6 L MCV MCH 27 L MCHC 31 L RDW 19.6 H Plt Count Lymph % (Auto) [place] % (Auto) Eos % (Auto) Baso % (Auto) Lymph # [place] # Eos # Baso # Seg Neutrophils % Seg Neuts % (Manual) Lymphocytes % (Manual) Eosinophils % (Manual) Seg Neutrophils # Lymphocytes # (Manual) Eosinophils # (Manual) PT INR D-Dimer POC ABG pH POC ABG pCO2 POC ABG pO2 ABG pO2 ABG HCO3 ABG Base Excess ABG Hemoglobin Oxyhemoglobin Sodium Potassium Chloride 96.4 L Carbon Dioxide 33 H BUN 66 H Creatinine 4.5 H Glucose 103 H POC Glucose 107 H Calcium Phosphorus Magnesium ALT Alkaline Phosphatase Total Creatine Kinase CK-MB (CK-2) Rel Index Troponin T Albumin LDL Cholesterol Direct PTH Intact Salicylates Acetaminophen Crossmatch 04/13/19 04/14/19 04/14/19 23:43 05:50 13:07 WBC RBC Hgb Hct MCV MCH MCHC RDW Plt Count Lymph % (Auto) [place] % (Auto) Eos % (Auto) Baso % (Auto) Lymph # [place] # Eos # Baso # Seg Neutrophils % Seg Neuts % (Manual) Lymphocytes % (Manual) Eosinophils % (Manual) Seg Neutrophils # Lymphocytes # (Manual) Eosinophils # (Manual) PT INR D-Dimer POC ABG pH POC ABG pCO2 POC ABG pO2 ABG pO2 ABG HCO3 ABG Base Excess ABG Hemoglobin Oxyhemoglobin Sodium Potassium Chloride Carbon Dioxide BUN Creatinine Glucose POC Glucose 119 H 112 H 112 H Calcium Phosphorus Magnesium ALT Alkaline Phosphatase Total Creatine Kinase CK-MB (CK-2) Rel Index Troponin T Albumin LDL Cholesterol Direct PTH Intact Salicylates Acetaminophen Crossmatch 04/14/19 04/15/19 04/15/19 18:35 01:18 05:17 WBC RBC Hgb Hct MCV MCH MCHC RDW Plt Count Lymph % (Auto) [place] % (Auto) Eos % (Auto) Baso % (Auto) Lymph # [place] # Eos # Baso # Seg Neutrophils % Seg Neuts % (Manual) Lymphocytes % (Manual) Eosinophils % (Manual) Seg Neutrophils # Lymphocytes # (Manual) Eosinophils # (Manual) PT INR D-Dimer POC ABG pH POC ABG pCO2 POC ABG pO2 ABG pO2 ABG HCO3 ABG Base Excess ABG Hemoglobin Oxyhemoglobin Sodium Potassium Chloride Carbon Dioxide BUN Creatinine Glucose POC Glucose 114 H 114 H 114 H Calcium Phosphorus Magnesium ALT Alkaline Phosphatase Total Creatine Kinase CK-MB (CK-2) Rel Index Troponin T Albumin LDL Cholesterol Direct PTH Intact Salicylates Acetaminophen Crossmatch 04/15/19 04/15/19 04/16/19 11:50 23:39 05:41 WBC RBC Hgb Hct MCV MCH MCHC RDW Plt Count Lymph % (Auto) [place] % (Auto) Eos % (Auto) Baso % (Auto) Lymph # [place] # Eos # Baso # Seg Neutrophils % Seg Neuts % (Manual) Lymphocytes % (Manual) Eosinophils % (Manual) Seg Neutrophils # Lymphocytes # (Manual) Eosinophils # (Manual) PT INR D-Dimer POC ABG pH POC ABG pCO2 POC ABG pO2 ABG pO2 ABG HCO3 ABG Base Excess ABG Hemoglobin Oxyhemoglobin Sodium Potassium Chloride Carbon Dioxide BUN Creatinine Glucose POC Glucose 109 H 115 H 125 H Calcium Phosphorus Magnesium ALT Alkaline Phosphatase Total Creatine Kinase CK-MB (CK-2) Rel Index Troponin T Albumin LDL Cholesterol Direct PTH Intact Salicylates Acetaminophen Crossmatch 04/16/19 04/17/19 04/17/19 12:53 01:00 12:38 WBC RBC Hgb Hct MCV MCH MCHC RDW Plt Count Lymph % (Auto) [place] % (Auto) Eos % (Auto) Baso % (Auto) Lymph # [place] # Eos # Baso # Seg Neutrophils % Seg Neuts % (Manual) Lymphocytes % (Manual) Eosinophils % (Manual) Seg Neutrophils # Lymphocytes # (Manual) Eosinophils # (Manual) PT INR D-Dimer POC ABG pH POC ABG pCO2 POC ABG pO2 ABG pO2 ABG HCO3 ABG Base Excess ABG Hemoglobin Oxyhemoglobin Sodium Potassium Chloride Carbon Dioxide BUN Creatinine Glucose POC Glucose 121 H 127 H 159 H Calcium Phosphorus Magnesium ALT Alkaline Phosphatase Total Creatine Kinase CK-MB (CK-2) Rel Index Troponin T Albumin LDL Cholesterol Direct PTH Intact Salicylates Acetaminophen Crossmatch 04/17/19 04/17/19 04/18/19 18:27 23:36 07:19 WBC RBC 3.49 L Hgb 9.0 L Hct 29.9 L MCV MCH 26 L MCHC 30 L RDW 20.0 H Plt Count Lymph % (Auto) [place] % (Auto) Eos % (Auto) Baso % (Auto) Lymph # [place] # Eos # Baso # Seg Neutrophils % Seg Neuts % (Manual) Lymphocytes % (Manual) Eosinophils % (Manual) Seg Neutrophils # Lymphocytes # (Manual) Eosinophils # (Manual) PT INR D-Dimer POC ABG pH POC ABG pCO2 POC ABG pO2 ABG pO2 ABG HCO3 ABG Base Excess ABG Hemoglobin Oxyhemoglobin Sodium Potassium Chloride Carbon Dioxide BUN Creatinine Glucose POC Glucose 109 H 134 H Calcium Phosphorus Magnesium ALT Alkaline Phosphatase Total Creatine Kinase CK-MB (CK-2) Rel Index Troponin T Albumin LDL Cholesterol Direct PTH Intact Salicylates Acetaminophen Crossmatch 04/18/19 04/18/19 04/18/19 07:19 12:16 17:09 WBC RBC Hgb Hct MCV MCH MCHC RDW Plt Count Lymph % (Auto) [place] % (Auto) Eos % (Auto) Baso % (Auto) Lymph # [place] # Eos # Baso # Seg Neutrophils % Seg Neuts % (Manual) Lymphocytes % (Manual) Eosinophils % (Manual) Seg Neutrophils # Lymphocytes # (Manual) Eosinophils # (Manual) PT INR D-Dimer POC ABG pH POC ABG pCO2 POC ABG pO2 ABG pO2 ABG HCO3 ABG Base Excess ABG Hemoglobin Oxyhemoglobin Sodium Potassium Chloride Carbon Dioxide BUN 41 H Creatinine 2.9 H Glucose 122 H POC Glucose 125 H 131 H Calcium Phosphorus Magnesium ALT Alkaline Phosphatase Total Creatine Kinase CK-MB (CK-2) Rel Index Troponin T Albumin LDL Cholesterol Direct PTH Intact Salicylates Acetaminophen Crossmatch 04/18/19 04/19/19 04/19/19 23:57 05:55 11:35 WBC RBC Hgb Hct MCV MCH MCHC RDW Plt Count Lymph % (Auto) [place] % (Auto) Eos % (Auto) Baso % (Auto) Lymph # [place] # Eos # Baso # Seg Neutrophils % Seg Neuts % (Manual) Lymphocytes % (Manual) Eosinophils % (Manual) Seg Neutrophils # Lymphocytes # (Manual) Eosinophils # (Manual) PT INR D-Dimer POC ABG pH POC ABG pCO2 POC ABG pO2 ABG pO2 ABG HCO3 ABG Base Excess ABG Hemoglobin Oxyhemoglobin Sodium Potassium Chloride Carbon Dioxide BUN Creatinine Glucose POC Glucose 159 H 144 H 177 H Calcium Phosphorus Magnesium ALT Alkaline Phosphatase Total Creatine Kinase CK-MB (CK-2) Rel Index Troponin T Albumin LDL Cholesterol Direct PTH Intact Salicylates Acetaminophen Crossmatch 04/19/19 04/20/19 04/20/19 16:36 02:05 06:28 WBC RBC Hgb Hct MCV MCH MCHC RDW Plt Count Lymph % (Auto) [place] % (Auto) Eos % (Auto) Baso % (Auto) Lymph # [place] # Eos # Baso # Seg Neutrophils % Seg Neuts % (Manual) Lymphocytes % (Manual) Eosinophils % (Manual) Seg Neutrophils # Lymphocytes # (Manual) Eosinophils # (Manual) PT INR D-Dimer POC ABG pH POC ABG pCO2 POC ABG pO2 ABG pO2 ABG HCO3 ABG Base Excess ABG Hemoglobin Oxyhemoglobin Sodium Potassium Chloride Carbon Dioxide BUN Creatinine Glucose POC Glucose 134 H 142 H 132 H Calcium Phosphorus Magnesium ALT Alkaline Phosphatase Total Creatine Kinase CK-MB (CK-2) Rel Index Troponin T Albumin LDL Cholesterol Direct PTH Intact Salicylates Acetaminophen Crossmatch 04/20/19 04/20/19 04/21/19 12:37 23:34 05:59 WBC RBC Hgb Hct MCV MCH MCHC RDW Plt Count Lymph % (Auto) [place] % (Auto) Eos % (Auto) Baso % (Auto) Lymph # [place] # Eos # Baso # Seg Neutrophils % Seg Neuts % (Manual) Lymphocytes % (Manual) Eosinophils % (Manual) Seg Neutrophils # Lymphocytes # (Manual) Eosinophils # (Manual) PT INR D-Dimer POC ABG pH POC ABG pCO2 POC ABG pO2 ABG pO2 ABG HCO3 ABG Base Excess ABG Hemoglobin Oxyhemoglobin Sodium Potassium Chloride Carbon Dioxide BUN Creatinine Glucose POC Glucose 163 H 166 H 140 H Calcium Phosphorus Magnesium ALT Alkaline Phosphatase Total Creatine Kinase CK-MB (CK-2) Rel Index Troponin T Albumin LDL Cholesterol Direct PTH Intact Salicylates Acetaminophen Crossmatch 04/21/19 04/21/19 04/21/19 12:07 17:22 23:43 WBC RBC Hgb Hct MCV MCH MCHC RDW Plt Count Lymph % (Auto) [place] % (Auto) Eos % (Auto) Baso % (Auto) Lymph # [place] # Eos # Baso # Seg Neutrophils % Seg Neuts % (Manual) Lymphocytes % (Manual) Eosinophils % (Manual) Seg Neutrophils # Lymphocytes # (Manual) Eosinophils # (Manual) PT INR D-Dimer POC ABG pH POC ABG pCO2 POC ABG pO2 ABG pO2 ABG HCO3 ABG Base Excess ABG Hemoglobin Oxyhemoglobin Sodium Potassium Chloride Carbon Dioxide BUN Creatinine Glucose POC Glucose 135 H 141 H 138 H Calcium Phosphorus Magnesium ALT Alkaline Phosphatase Total Creatine Kinase CK-MB (CK-2) Rel Index Troponin T Albumin LDL Cholesterol Direct PTH Intact Salicylates Acetaminophen Crossmatch 04/22/19 04/22/19 04/22/19 05:12 18:24 23:49 WBC RBC Hgb Hct MCV MCH MCHC RDW Plt Count Lymph % (Auto) [place] % (Auto) Eos % (Auto) Baso % (Auto) Lymph # [place] # Eos # Baso # Seg Neutrophils % Seg Neuts % (Manual) Lymphocytes % (Manual) Eosinophils % (Manual) Seg Neutrophils # Lymphocytes # (Manual) Eosinophils # (Manual) PT INR D-Dimer POC ABG pH POC ABG pCO2 POC ABG pO2 ABG pO2 ABG HCO3 ABG Base Excess ABG Hemoglobin Oxyhemoglobin Sodium Potassium Chloride Carbon Dioxide BUN Creatinine Glucose POC Glucose 141 H 137 H 142 H Calcium Phosphorus Magnesium ALT Alkaline Phosphatase Total Creatine Kinase CK-MB (CK-2) Rel Index Troponin T Albumin LDL Cholesterol Direct PTH Intact Salicylates Acetaminophen Crossmatch 04/23/19 04/23/19 04/23/19 05:53 08:13 11:58 WBC RBC Hgb Hct MCV MCH MCHC RDW Plt Count Lymph % (Auto) [place] % (Auto) Eos % (Auto) Baso % (Auto) Lymph # [place] # Eos # Baso # Seg Neutrophils % Seg Neuts % (Manual) Lymphocytes % (Manual) Eosinophils % (Manual) Seg Neutrophils # Lymphocytes # (Manual) Eosinophils # (Manual) PT INR D-Dimer POC ABG pH POC ABG pCO2 POC ABG pO2 ABG pO2 ABG HCO3 ABG Base Excess ABG Hemoglobin Oxyhemoglobin Sodium Potassium Chloride Carbon Dioxide BUN Creatinine Glucose POC Glucose 132 H 154 H 165 H Calcium Phosphorus Magnesium ALT Alkaline Phosphatase Total Creatine Kinase CK-MB (CK-2) Rel Index Troponin T Albumin LDL Cholesterol Direct PTH Intact Salicylates Acetaminophen Crossmatch 04/23/19 04/24/19 04/24/19 16:28 00:28 07:00 WBC RBC Hgb Hct MCV MCH MCHC RDW Plt Count Lymph % (Auto) [place] % (Auto) Eos % (Auto) Baso % (Auto) Lymph # [place] # Eos # Baso # Seg Neutrophils % Seg Neuts % (Manual) Lymphocytes % (Manual) Eosinophils % (Manual) Seg Neutrophils # Lymphocytes # (Manual) Eosinophils # (Manual) PT INR D-Dimer POC ABG pH POC ABG pCO2 POC ABG pO2 ABG pO2 ABG HCO3 ABG Base Excess ABG Hemoglobin Oxyhemoglobin Sodium Potassium Chloride Carbon Dioxide BUN Creatinine Glucose POC Glucose 136 H 140 H 141 H Calcium Phosphorus Magnesium ALT Alkaline Phosphatase Total Creatine Kinase CK-MB (CK-2) Rel Index Troponin T Albumin LDL Cholesterol Direct PTH Intact Salicylates Acetaminophen Crossmatch 04/24/19 04/24/19 04/25/19 12:38 18:57 00:38 WBC RBC Hgb Hct MCV MCH MCHC RDW Plt Count Lymph % (Auto) [place] % (Auto) Eos % (Auto) Baso % (Auto) Lymph # [place] # Eos # Baso # Seg Neutrophils % Seg Neuts % (Manual) Lymphocytes % (Manual) Eosinophils % (Manual) Seg Neutrophils # Lymphocytes # (Manual) Eosinophils # (Manual) PT INR D-Dimer POC ABG pH POC ABG pCO2 POC ABG pO2 ABG pO2 ABG HCO3 ABG Base Excess ABG Hemoglobin Oxyhemoglobin Sodium Potassium Chloride Carbon Dioxide BUN Creatinine Glucose POC Glucose 152 H 166 H 128 H Calcium Phosphorus Magnesium ALT Alkaline Phosphatase Total Creatine Kinase CK-MB (CK-2) Rel Index Troponin T Albumin LDL Cholesterol Direct PTH Intact Salicylates Acetaminophen Crossmatch 04/25/19 04/25/19 04/25/19 05:44 13:43 18:34 WBC RBC Hgb Hct MCV MCH MCHC RDW Plt Count Lymph % (Auto) [place] % (Auto) Eos % (Auto) Baso % (Auto) Lymph # [place] # Eos # Baso # Seg Neutrophils % Seg Neuts % (Manual) Lymphocytes % (Manual) Eosinophils % (Manual) Seg Neutrophils # Lymphocytes # (Manual) Eosinophils # (Manual) PT INR D-Dimer POC ABG pH POC ABG pCO2 POC ABG pO2 ABG pO2 ABG HCO3 ABG Base Excess ABG Hemoglobin Oxyhemoglobin Sodium Potassium Chloride Carbon Dioxide BUN Creatinine Glucose POC Glucose 153 H 186 H 124 H Calcium Phosphorus Magnesium ALT Alkaline Phosphatase Total Creatine Kinase CK-MB (CK-2) Rel Index Troponin T Albumin LDL Cholesterol Direct PTH Intact Salicylates Acetaminophen Crossmatch 04/26/19 04/26/19 04/26/19 00:59 05:52 10:12 WBC 11.5 H RBC 2.84 L Hgb 7.4 L Hct 23.3 L MCV 82 L MCH 26 L MCHC RDW 20.3 H Plt Count Lymph % (Auto) 7.5 L [place] % (Auto) 7.5 H Eos % (Auto) 5.3 H Baso % (Auto) Lymph # 0.9 L [place] # 0.9 H Eos # 0.6 H Baso # Seg Neutrophils % 79.2 H Seg Neuts % (Manual) Lymphocytes % (Manual) Eosinophils % (Manual) Seg Neutrophils # 9.1 H Lymphocytes # (Manual) Eosinophils # (Manual) PT INR D-Dimer POC ABG pH POC ABG pCO2 POC ABG pO2 ABG pO2 ABG HCO3 ABG Base Excess ABG Hemoglobin Oxyhemoglobin Sodium Potassium Chloride Carbon Dioxide BUN Creatinine Glucose POC Glucose 163 H 146 H Calcium Phosphorus Magnesium ALT Alkaline Phosphatase Total Creatine Kinase CK-MB (CK-2) Rel Index Troponin T Albumin LDL Cholesterol Direct PTH Intact Salicylates Acetaminophen Crossmatch 04/26/19 04/26/19 04/26/19 10:12 12:15 19:00 WBC RBC Hgb Hct MCV MCH MCHC RDW Plt Count Lymph % (Auto) [place] % (Auto) Eos % (Auto) Baso % (Auto) Lymph # [place] # Eos # Baso # Seg Neutrophils % Seg Neuts % (Manual) Lymphocytes % (Manual) Eosinophils % (Manual) Seg Neutrophils # Lymphocytes # (Manual) Eosinophils # (Manual) PT INR D-Dimer POC ABG pH POC ABG pCO2 POC ABG pO2 ABG pO2 ABG HCO3 ABG Base Excess ABG Hemoglobin Oxyhemoglobin Sodium 130 L Potassium Chloride 87.4 L Carbon Dioxide BUN 93 H Creatinine 4.2 H Glucose 140 H POC Glucose 155 H 179 H Calcium Phosphorus Magnesium ALT Alkaline Phosphatase Total Creatine Kinase CK-MB (CK-2) Rel Index Troponin T Albumin LDL Cholesterol Direct PTH Intact Salicylates Acetaminophen Crossmatch 04/27/19 04/27/19 04/27/19 00:23 06:34 17:13 WBC RBC Hgb Hct MCV MCH MCHC RDW Plt Count Lymph % (Auto) [place] % (Auto) Eos % (Auto) Baso % (Auto) Lymph # [place] # Eos # Baso # Seg Neutrophils % Seg Neuts % (Manual) Lymphocytes % (Manual) Eosinophils % (Manual) Seg Neutrophils # Lymphocytes # (Manual) Eosinophils # (Manual) PT INR D-Dimer POC ABG pH POC ABG pCO2 POC ABG pO2 ABG pO2 ABG HCO3 ABG Base Excess ABG Hemoglobin Oxyhemoglobin Sodium Potassium Chloride Carbon Dioxide BUN Creatinine Glucose POC Glucose 158 H 140 H 152 H Calcium Phosphorus Magnesium ALT Alkaline Phosphatase Total Creatine Kinase CK-MB (CK-2) Rel Index Troponin T Albumin LDL Cholesterol Direct PTH Intact Salicylates Acetaminophen Crossmatch 04/27/19 04/28/19 04/28/19 23:50 05:18 11:37 WBC RBC Hgb Hct MCV MCH MCHC RDW Plt Count Lymph % (Auto) [place] % (Auto) Eos % (Auto) Baso % (Auto) Lymph # [place] # Eos # Baso # Seg Neutrophils % Seg Neuts % (Manual) Lymphocytes % (Manual) Eosinophils % (Manual) Seg Neutrophils # Lymphocytes # (Manual) Eosinophils # (Manual) PT INR D-Dimer POC ABG pH POC ABG pCO2 POC ABG pO2 ABG pO2 ABG HCO3 ABG Base Excess ABG Hemoglobin Oxyhemoglobin Sodium Potassium Chloride Carbon Dioxide BUN Creatinine Glucose POC Glucose 160 H 145 H 177 H Calcium Phosphorus Magnesium ALT Alkaline Phosphatase Total Creatine Kinase CK-MB (CK-2) Rel Index Troponin T Albumin LDL Cholesterol Direct PTH Intact Salicylates Acetaminophen Crossmatch 04/28/19 04/28/19 04/29/19 18:31 23:47 05:50 WBC RBC Hgb Hct MCV MCH MCHC RDW Plt Count Lymph % (Auto) [place] % (Auto) Eos % (Auto) Baso % (Auto) Lymph # [place] # Eos # Baso # Seg Neutrophils % Seg Neuts % (Manual) Lymphocytes % (Manual) Eosinophils % (Manual) Seg Neutrophils # Lymphocytes # (Manual) Eosinophils # (Manual) PT INR D-Dimer POC ABG pH POC ABG pCO2 POC ABG pO2 ABG pO2 ABG HCO3 ABG Base Excess ABG Hemoglobin Oxyhemoglobin Sodium Potassium Chloride Carbon Dioxide BUN Creatinine Glucose POC Glucose 153 H 117 H 177 H Calcium Phosphorus Magnesium ALT Alkaline Phosphatase Total Creatine Kinase CK-MB (CK-2) Rel Index Troponin T Albumin LDL Cholesterol Direct PTH Intact Salicylates Acetaminophen Crossmatch 04/29/19 04/30/19 04/30/19 17:04 01:02 06:42 WBC RBC Hgb Hct MCV MCH MCHC RDW Plt Count Lymph % (Auto) [place] % (Auto) Eos % (Auto) Baso % (Auto) Lymph # [place] # Eos # Baso # Seg Neutrophils % Seg Neuts % (Manual) Lymphocytes % (Manual) Eosinophils % (Manual) Seg Neutrophils # Lymphocytes # (Manual) Eosinophils # (Manual) PT INR D-Dimer POC ABG pH POC ABG pCO2 POC ABG pO2 ABG pO2 ABG HCO3 ABG Base Excess ABG Hemoglobin Oxyhemoglobin Sodium Potassium Chloride Carbon Dioxide BUN Creatinine Glucose POC Glucose 205 H 143 H 145 H Calcium Phosphorus Magnesium ALT Alkaline Phosphatase Total Creatine Kinase CK-MB (CK-2) Rel Index Troponin T Albumin LDL Cholesterol Direct PTH Intact Salicylates Acetaminophen Crossmatch 04/30/19 04/30/19 04/30/19 11:31 18:12 23:38 WBC RBC Hgb Hct MCV MCH MCHC RDW Plt Count Lymph % (Auto) [place] % (Auto) Eos % (Auto) Baso % (Auto) Lymph # [place] # Eos # Baso # Seg Neutrophils % Seg Neuts % (Manual) Lymphocytes % (Manual) Eosinophils % (Manual) Seg Neutrophils # Lymphocytes # (Manual) Eosinophils # (Manual) PT INR D-Dimer POC ABG pH POC ABG pCO2 POC ABG pO2 ABG pO2 ABG HCO3 ABG Base Excess ABG Hemoglobin Oxyhemoglobin Sodium Potassium Chloride Carbon Dioxide BUN Creatinine Glucose POC Glucose 162 H 117 H 139 H Calcium Phosphorus Magnesium ALT Alkaline Phosphatase Total Creatine Kinase CK-MB (CK-2) Rel Index Troponin T Albumin LDL Cholesterol Direct PTH Intact Salicylates Acetaminophen Crossmatch 05/01/19 05/01/19 05/02/19 06:06 23:41 05:59 WBC RBC Hgb Hct MCV MCH MCHC RDW Plt Count Lymph % (Auto) [place] % (Auto) Eos % (Auto) Baso % (Auto) Lymph # [place] # Eos # Baso # Seg Neutrophils % Seg Neuts % (Manual) Lymphocytes % (Manual) Eosinophils % (Manual) Seg Neutrophils # Lymphocytes # (Manual) Eosinophils # (Manual) PT INR D-Dimer POC ABG pH POC ABG pCO2 POC ABG pO2 ABG pO2 ABG HCO3 ABG Base Excess ABG Hemoglobin Oxyhemoglobin Sodium Potassium Chloride Carbon Dioxide BUN Creatinine Glucose POC Glucose 150 H 140 H 130 H Calcium Phosphorus Magnesium ALT Alkaline Phosphatase Total Creatine Kinase CK-MB (CK-2) Rel Index Troponin T Albumin LDL Cholesterol Direct PTH Intact Salicylates Acetaminophen Crossmatch 05/02/19 05/02/19 05/03/19 11:55 18:10 00:15 WBC RBC Hgb Hct MCV MCH MCHC RDW Plt Count Lymph % (Auto) [place] % (Auto) Eos % (Auto) Baso % (Auto) Lymph # [place] # Eos # Baso # Seg Neutrophils % Seg Neuts % (Manual) Lymphocytes % (Manual) Eosinophils % (Manual) Seg Neutrophils # Lymphocytes # (Manual) Eosinophils # (Manual) PT INR D-Dimer POC ABG pH POC ABG pCO2 POC ABG pO2 ABG pO2 ABG HCO3 ABG Base Excess ABG Hemoglobin Oxyhemoglobin Sodium Potassium Chloride Carbon Dioxide BUN Creatinine Glucose POC Glucose 146 H 141 H 145 H Calcium Phosphorus Magnesium ALT Alkaline Phosphatase Total Creatine Kinase CK-MB (CK-2) Rel Index Troponin T Albumin LDL Cholesterol Direct PTH Intact Salicylates Acetaminophen Crossmatch 05/03/19 05/03/19 05/03/19 05:49 05:49 06:01 WBC RBC 2.84 L Hgb 7.2 L Hct 22.9 L MCV 81 L MCH 26 L MCHC RDW 20.6 H Plt Count 456 H Lymph % (Auto) 11.8 L [place] % (Auto) Eos % (Auto) 10.6 H Baso % (Auto) Lymph # 1.1 L [place] # Eos # 1.0 H Baso # Seg Neutrophils % 70.4 H Seg Neuts % (Manual) Lymphocytes % (Manual) Eosinophils % (Manual) Seg Neutrophils # Lymphocytes # (Manual) Eosinophils # (Manual) PT INR D-Dimer POC ABG pH POC ABG pCO2 POC ABG pO2 ABG pO2 ABG HCO3 ABG Base Excess ABG Hemoglobin Oxyhemoglobin Sodium Potassium Chloride 94.8 L Carbon Dioxide BUN 66 H Creatinine 3.6 H Glucose 129 H POC Glucose 135 H Calcium Phosphorus Magnesium ALT Alkaline Phosphatase Total Creatine Kinase CK-MB (CK-2) Rel Index Troponin T Albumin LDL Cholesterol Direct PTH Intact Salicylates Acetaminophen Crossmatch 05/03/19 05/03/19 05/04/19 11:04 18:40 00:06 WBC RBC Hgb Hct MCV MCH MCHC RDW Plt Count Lymph % (Auto) [place] % (Auto) Eos % (Auto) Baso % (Auto) Lymph # [place] # Eos # Baso # Seg Neutrophils % Seg Neuts % (Manual) Lymphocytes % (Manual) Eosinophils % (Manual) Seg Neutrophils # Lymphocytes # (Manual) Eosinophils # (Manual) PT INR D-Dimer POC ABG pH POC ABG pCO2 POC ABG pO2 ABG pO2 ABG HCO3 ABG Base Excess ABG Hemoglobin Oxyhemoglobin Sodium Potassium Chloride Carbon Dioxide BUN Creatinine Glucose POC Glucose 191 H 167 H 137 H Calcium Phosphorus Magnesium ALT Alkaline Phosphatase Total Creatine Kinase CK-MB (CK-2) Rel Index Troponin T Albumin LDL Cholesterol Direct PTH Intact Salicylates Acetaminophen Crossmatch 05/04/19 05/04/19 05/04/19 06:44 07:30 07:30 WBC 15.8 H RBC 2.74 L Hgb 6.7 L Hct 22.2 L MCV 81 L MCH 24 L MCHC 30 L RDW 20.4 H Plt Count 450 H Lymph % (Auto) 5.1 L [place] % (Auto) Eos % (Auto) Baso % (Auto) Lymph # 0.8 L [place] # Eos # 0.6 H Baso # Seg Neutrophils % 86.3 H Seg Neuts % (Manual) Lymphocytes % (Manual) Eosinophils % (Manual) Seg Neutrophils # 13.6 H Lymphocytes # (Manual) Eosinophils # (Manual) PT INR D-Dimer POC ABG pH POC ABG pCO2 POC ABG pO2 ABG pO2 ABG HCO3 ABG Base Excess ABG Hemoglobin Oxyhemoglobin Sodium Potassium Chloride 95.2 L Carbon Dioxide BUN 92 H Creatinine 4.8 H Glucose 139 H POC Glucose 153 H Calcium Phosphorus Magnesium ALT Alkaline Phosphatase Total Creatine Kinase CK-MB (CK-2) Rel Index Troponin T Albumin LDL Cholesterol Direct PTH Intact Salicylates Acetaminophen Crossmatch 05/04/19 05/04/19 05/05/19 12:55 16:31 01:02 WBC RBC Hgb Hct MCV MCH MCHC RDW Plt Count Lymph % (Auto) [place] % (Auto) Eos % (Auto) Baso % (Auto) Lymph # [place] # Eos # Baso # Seg Neutrophils % Seg Neuts % (Manual) Lymphocytes % (Manual) Eosinophils % (Manual) Seg Neutrophils # Lymphocytes # (Manual) Eosinophils # (Manual) PT INR D-Dimer POC ABG pH POC ABG pCO2 POC ABG pO2 ABG pO2 ABG HCO3 ABG Base Excess ABG Hemoglobin Oxyhemoglobin Sodium Potassium Chloride Carbon Dioxide BUN Creatinine Glucose POC Glucose 169 H 171 H Calcium Phosphorus Magnesium ALT Alkaline Phosphatase Total Creatine Kinase CK-MB (CK-2) Rel Index Troponin T Albumin LDL Cholesterol Direct PTH Intact Salicylates Acetaminophen Crossmatch See Detail 05/05/19 05/05/19 05/05/19 05:26 05:36 11:48 WBC 12.6 H RBC 2.73 L Hgb 6.9 L Hct 22.3 L MCV 82 L MCH 25 L MCHC 31 L RDW 21.0 H Plt Count Lymph % (Auto) 8.9 L [place] % (Auto) Eos % (Auto) Baso % (Auto) Lymph # 1.1 L [place] # 0.9 H Eos # Baso # Seg Neutrophils % 80.7 H Seg Neuts % (Manual) Lymphocytes % (Manual) Eosinophils % (Manual) Seg Neutrophils # 10.2 H Lymphocytes # (Manual) Eosinophils # (Manual) PT INR D-Dimer POC ABG pH POC ABG pCO2 POC ABG pO2 ABG pO2 ABG HCO3 ABG Base Excess ABG Hemoglobin Oxyhemoglobin Sodium Potassium Chloride Carbon Dioxide BUN Creatinine Glucose POC Glucose 153 H 173 H Calcium Phosphorus Magnesium ALT Alkaline Phosphatase Total Creatine Kinase CK-MB (CK-2) Rel Index Troponin T Albumin LDL Cholesterol Direct PTH Intact Salicylates Acetaminophen Crossmatch 05/05/19 05/06/19 05/06/19 16:42 02:24 06:12 WBC RBC Hgb Hct MCV MCH MCHC RDW Plt Count Lymph % (Auto) [place] % (Auto) Eos % (Auto) Baso % (Auto) Lymph # [place] # Eos # Baso # Seg Neutrophils % Seg Neuts % (Manual) Lymphocytes % (Manual) Eosinophils % (Manual) Seg Neutrophils # Lymphocytes # (Manual) Eosinophils # (Manual) PT INR D-Dimer POC ABG pH POC ABG pCO2 POC ABG pO2 ABG pO2 ABG HCO3 ABG Base Excess ABG Hemoglobin Oxyhemoglobin Sodium Potassium Chloride Carbon Dioxide BUN Creatinine Glucose POC Glucose 126 H 138 H 151 H Calcium Phosphorus Magnesium ALT Alkaline Phosphatase Total Creatine Kinase CK-MB (CK-2) Rel Index Troponin T Albumin LDL Cholesterol Direct PTH Intact Salicylates Acetaminophen Crossmatch 05/06/19 05/06/19 05/06/19 08:15 16:48 23:16 WBC 11.8 H RBC 2.72 L Hgb 6.7 L Hct 21.7 L MCV 80 L MCH 25 L MCHC 31 L RDW 20.9 H Plt Count Lymph % (Auto) [place] % (Auto) Eos % (Auto) Baso % (Auto) Lymph # [place] # Eos # Baso # Seg Neutrophils % Seg Neuts % (Manual) Lymphocytes % (Manual) Eosinophils % (Manual) Seg Neutrophils # Lymphocytes # (Manual) Eosinophils # (Manual) PT INR D-Dimer POC ABG pH POC ABG pCO2 POC ABG pO2 ABG pO2 ABG HCO3 ABG Base Excess ABG Hemoglobin Oxyhemoglobin Sodium Potassium Chloride Carbon Dioxide BUN Creatinine Glucose POC Glucose 153 H 143 H Calcium Phosphorus Magnesium ALT Alkaline Phosphatase Total Creatine Kinase CK-MB (CK-2) Rel Index Troponin T Albumin LDL Cholesterol Direct PTH Intact Salicylates Acetaminophen Crossmatch 05/07/19 05/07/19 05/07/19 06:00 06:30 12:33 WBC RBC 3.53 L Hgb 9.1 L Hct 28.6 L D MCV 81 L MCH 26 L MCHC RDW 19.1 H Plt Count Lymph % (Auto) 9.6 L [place] % (Auto) Eos % (Auto) 4.8 H Baso % (Auto) Lymph # 1.1 L [place] # Eos # 0.5 H Baso # Seg Neutrophils % 77.8 H Seg Neuts % (Manual) Lymphocytes % (Manual) Eosinophils % (Manual) Seg Neutrophils # 8.6 H Lymphocytes # (Manual) Eosinophils # (Manual) PT INR D-Dimer POC ABG pH POC ABG pCO2 POC ABG pO2 ABG pO2 ABG HCO3 ABG Base Excess ABG Hemoglobin Oxyhemoglobin Sodium Potassium Chloride Carbon Dioxide BUN Creatinine Glucose POC Glucose 122 H 140 H Calcium Phosphorus Magnesium ALT Alkaline Phosphatase Total Creatine Kinase CK-MB (CK-2) Rel Index Troponin T Albumin LDL Cholesterol Direct PTH Intact Salicylates Acetaminophen Crossmatch 05/07/19 05/07/19 05/08/19 16:41 23:55 05:10 WBC 11.6 H RBC 3.54 L Hgb 9.1 L Hct 29.1 L MCV 82 L MCH 26 L MCHC 31 L RDW 19.6 H Plt Count Lymph % (Auto) 6.6 L [place] % (Auto) Eos % (Auto) Baso % (Auto) 1.9 H Lymph # 0.8 L [place] # Eos # Baso # 0.2 H Seg Neutrophils % 82.6 H Seg Neuts % (Manual) Lymphocytes % (Manual) Eosinophils % (Manual) Seg Neutrophils # 9.6 H Lymphocytes # (Manual) Eosinophils # (Manual) PT INR D-Dimer POC ABG pH POC ABG pCO2 POC ABG pO2 ABG pO2 ABG HCO3 ABG Base Excess ABG Hemoglobin Oxyhemoglobin Sodium Potassium Chloride Carbon Dioxide BUN Creatinine Glucose POC Glucose 143 H 153 H Calcium Phosphorus Magnesium ALT Alkaline Phosphatase Total Creatine Kinase CK-MB (CK-2) Rel Index Troponin T Albumin LDL Cholesterol Direct PTH Intact Salicylates Acetaminophen Crossmatch 05/08/19 05/08/19 05/09/19 06:09 16:55 03:27 WBC RBC Hgb Hct MCV MCH MCHC RDW Plt Count Lymph % (Auto) [place] % (Auto) Eos % (Auto) Baso % (Auto) Lymph # [place] # Eos # Baso # Seg Neutrophils % Seg Neuts % (Manual) Lymphocytes % (Manual) Eosinophils % (Manual) Seg Neutrophils # Lymphocytes # (Manual) Eosinophils # (Manual) PT INR D-Dimer POC ABG pH POC ABG pCO2 POC ABG pO2 ABG pO2 ABG HCO3 ABG Base Excess ABG Hemoglobin Oxyhemoglobin Sodium Potassium Chloride Carbon Dioxide BUN Creatinine Glucose POC Glucose 204 H 196 H 175 H Calcium Phosphorus Magnesium ALT Alkaline Phosphatase Total Creatine Kinase CK-MB (CK-2) Rel Index Troponin T Albumin LDL Cholesterol Direct PTH Intact Salicylates Acetaminophen Crossmatch 05/09/19 05/09/19 05/09/19 06:00 11:00 12:41 WBC 12.0 H RBC Hgb 9.7 L Hct 30.2 L MCV 83 L MCH 26 L MCHC RDW 20.1 H Plt Count Lymph % (Auto) 7.4 L [place] % (Auto) 7.6 H Eos % (Auto) Baso % (Auto) Lymph # 0.9 L [place] # 0.9 H Eos # Baso # Seg Neutrophils % 80.7 H Seg Neuts % (Manual) Lymphocytes % (Manual) Eosinophils % (Manual) Seg Neutrophils # 9.7 H Lymphocytes # (Manual) Eosinophils # (Manual) PT INR D-Dimer POC ABG pH POC ABG pCO2 POC ABG pO2 ABG pO2 ABG HCO3 ABG Base Excess ABG Hemoglobin Oxyhemoglobin Sodium Potassium Chloride Carbon Dioxide BUN Creatinine Glucose POC Glucose 172 H 168 H Calcium Phosphorus Magnesium ALT Alkaline Phosphatase Total Creatine Kinase CK-MB (CK-2) Rel Index Troponin T Albumin LDL Cholesterol Direct PTH Intact Salicylates Acetaminophen Crossmatch 05/09/19 05/10/19 05/10/19 17:45 01:26 06:07 WBC RBC Hgb Hct MCV MCH MCHC RDW Plt Count Lymph % (Auto) [place] % (Auto) Eos % (Auto) Baso % (Auto) Lymph # [place] # Eos # Baso # Seg Neutrophils % Seg Neuts % (Manual) Lymphocytes % (Manual) Eosinophils % (Manual) Seg Neutrophils # Lymphocytes # (Manual) Eosinophils # (Manual) PT INR D-Dimer POC ABG pH POC ABG pCO2 POC ABG pO2 ABG pO2 ABG HCO3 ABG Base Excess ABG Hemoglobin Oxyhemoglobin Sodium Potassium Chloride Carbon Dioxide BUN Creatinine Glucose POC Glucose 167 H 174 H 179 H Calcium Phosphorus Magnesium ALT Alkaline Phosphatase Total Creatine Kinase CK-MB (CK-2) Rel Index Troponin T Albumin LDL Cholesterol Direct PTH Intact Salicylates Acetaminophen Crossmatch 05/10/19 05/10/19 05/10/19 06:45 12:31 17:18 WBC RBC Hgb Hct MCV MCH MCHC RDW Plt Count Lymph % (Auto) [place] % (Auto) Eos % (Auto) Baso % (Auto) Lymph # [place] # Eos # Baso # Seg Neutrophils % Seg Neuts % (Manual) Lymphocytes % (Manual) Eosinophils % (Manual) Seg Neutrophils # Lymphocytes # (Manual) Eosinophils # (Manual) PT INR D-Dimer POC ABG pH POC ABG pCO2 POC ABG pO2 ABG pO2 ABG HCO3 ABG Base Excess ABG Hemoglobin Oxyhemoglobin Sodium 134 L Potassium Chloride 90.2 L Carbon Dioxide BUN 82 H Creatinine 4.1 H Glucose 195 H POC Glucose 201 H 197 H Calcium Phosphorus Magnesium ALT Alkaline Phosphatase Total Creatine Kinase CK-MB (CK-2) Rel Index Troponin T Albumin LDL Cholesterol Direct PTH Intact Salicylates Acetaminophen Crossmatch 05/11/19 05/11/19 05/11/19 00:20 06:30 17:38 WBC RBC Hgb Hct MCV MCH MCHC RDW Plt Count Lymph % (Auto) [place] % (Auto) Eos % (Auto) Baso % (Auto) Lymph # [place] # Eos # Baso # Seg Neutrophils % Seg Neuts % (Manual) Lymphocytes % (Manual) Eosinophils % (Manual) Seg Neutrophils # Lymphocytes # (Manual) Eosinophils # (Manual) PT INR D-Dimer POC ABG pH POC ABG pCO2 POC ABG pO2 ABG pO2 ABG HCO3 ABG Base Excess ABG Hemoglobin Oxyhemoglobin Sodium Potassium Chloride Carbon Dioxide BUN Creatinine Glucose POC Glucose 131 H 148 H 198 H Calcium Phosphorus Magnesium ALT Alkaline Phosphatase Total Creatine Kinase CK-MB (CK-2) Rel Index Troponin T Albumin LDL Cholesterol Direct PTH Intact Salicylates Acetaminophen Crossmatch 05/12/19 05/12/19 05/12/19 00:44 06:13 07:15 WBC RBC 3.32 L Hgb 8.7 L Hct 27.8 L MCV MCH 26 L MCHC 31 L RDW 19.8 H Plt Count Lymph % (Auto) 6.9 L [place] % (Auto) Eos % (Auto) 6.5 H Baso % (Auto) Lymph # 0.7 L [place] # Eos # 0.6 H Baso # Seg Neutrophils % 78.6 H Seg Neuts % (Manual) Lymphocytes % (Manual) Eosinophils % (Manual) Seg Neutrophils # 7.8 H Lymphocytes # (Manual) Eosinophils # (Manual) PT INR D-Dimer POC ABG pH POC ABG pCO2 POC ABG pO2 ABG pO2 ABG HCO3 ABG Base Excess ABG Hemoglobin Oxyhemoglobin Sodium Potassium Chloride Carbon Dioxide BUN Creatinine Glucose POC Glucose 170 H 133 H Calcium Phosphorus Magnesium ALT Alkaline Phosphatase Total Creatine Kinase CK-MB (CK-2) Rel Index Troponin T Albumin LDL Cholesterol Direct PTH Intact Salicylates Acetaminophen Crossmatch 05/12/19 05/12/19 05/12/19 07:15 11:17 17:37 WBC RBC Hgb Hct MCV MCH MCHC RDW Plt Count Lymph % (Auto) [place] % (Auto) Eos % (Auto) Baso % (Auto) Lymph # [place] # Eos # Baso # Seg Neutrophils % Seg Neuts % (Manual) Lymphocytes % (Manual) Eosinophils % (Manual) Seg Neutrophils # Lymphocytes # (Manual) Eosinophils # (Manual) PT INR D-Dimer POC ABG pH POC ABG pCO2 POC ABG pO2 ABG pO2 ABG HCO3 ABG Base Excess ABG Hemoglobin Oxyhemoglobin Sodium 135 L Potassium Chloride 94.2 L Carbon Dioxide BUN 59 H Creatinine 3.4 H Glucose 134 H POC Glucose 132 H 165 H Calcium Phosphorus Magnesium ALT Alkaline Phosphatase Total Creatine Kinase CK-MB (CK-2) Rel Index Troponin T Albumin LDL Cholesterol Direct PTH Intact Salicylates Acetaminophen Crossmatch 05/13/19 05/13/19 05/13/19 00:15 05:44 16:00 WBC RBC Hgb Hct MCV MCH MCHC RDW Plt Count Lymph % (Auto) [place] % (Auto) Eos % (Auto) Baso % (Auto) Lymph # [place] # Eos # Baso # Seg Neutrophils % Seg Neuts % (Manual) Lymphocytes % (Manual) Eosinophils % (Manual) Seg Neutrophils # Lymphocytes # (Manual) Eosinophils # (Manual) PT INR D-Dimer POC ABG pH POC ABG pCO2 POC ABG pO2 ABG pO2 ABG HCO3 ABG Base Excess ABG Hemoglobin Oxyhemoglobin Sodium Potassium Chloride Carbon Dioxide BUN Creatinine Glucose POC Glucose 144 H 133 H 221 H Calcium Phosphorus Magnesium ALT Alkaline Phosphatase Total Creatine Kinase CK-MB (CK-2) Rel Index Troponin T Albumin LDL Cholesterol Direct PTH Intact Salicylates Acetaminophen Crossmatch 05/14/19 05/14/19 05/14/19 06:44 11:56 16:42 WBC RBC Hgb Hct MCV MCH MCHC RDW Plt Count Lymph % (Auto) [place] % (Auto) Eos % (Auto) Baso % (Auto) Lymph # [place] # Eos # Baso # Seg Neutrophils % Seg Neuts % (Manual) Lymphocytes % (Manual) Eosinophils % (Manual) Seg Neutrophils # Lymphocytes # (Manual) Eosinophils # (Manual) PT INR D-Dimer POC ABG pH POC ABG pCO2 POC ABG pO2 ABG pO2 ABG HCO3 ABG Base Excess ABG Hemoglobin Oxyhemoglobin Sodium Potassium Chloride Carbon Dioxide BUN Creatinine Glucose POC Glucose 187 H 141 H 183 H Calcium Phosphorus Magnesium ALT Alkaline Phosphatase Total Creatine Kinase CK-MB (CK-2) Rel Index Troponin T Albumin LDL Cholesterol Direct PTH Intact Salicylates Acetaminophen Crossmatch 05/15/19 05/15/19 05/15/19 00:11 05:55 18:46 WBC RBC Hgb Hct MCV MCH MCHC RDW Plt Count Lymph % (Auto) [place] % (Auto) Eos % (Auto) Baso % (Auto) Lymph # [place] # Eos # Baso # Seg Neutrophils % Seg Neuts % (Manual) Lymphocytes % (Manual) Eosinophils % (Manual) Seg Neutrophils # Lymphocytes # (Manual) Eosinophils # (Manual) PT INR D-Dimer POC ABG pH POC ABG pCO2 POC ABG pO2 ABG pO2 ABG HCO3 ABG Base Excess ABG Hemoglobin Oxyhemoglobin Sodium Potassium Chloride Carbon Dioxide BUN Creatinine Glucose POC Glucose 169 H 119 H 173 H Calcium Phosphorus Magnesium ALT Alkaline Phosphatase Total Creatine Kinase CK-MB (CK-2) Rel Index Troponin T Albumin LDL Cholesterol Direct PTH Intact Salicylates Acetaminophen Crossmatch 05/16/19 05/16/19 05/16/19 00:18 06:17 12:47 WBC RBC Hgb Hct MCV MCH MCHC RDW Plt Count Lymph % (Auto) [place] % (Auto) Eos % (Auto) Baso % (Auto) Lymph # [place] # Eos # Baso # Seg Neutrophils % Seg Neuts % (Manual) Lymphocytes % (Manual) Eosinophils % (Manual) Seg Neutrophils # Lymphocytes # (Manual) Eosinophils # (Manual) PT INR D-Dimer POC ABG pH POC ABG pCO2 POC ABG pO2 ABG pO2 ABG HCO3 ABG Base Excess ABG Hemoglobin Oxyhemoglobin Sodium Potassium Chloride Carbon Dioxide BUN Creatinine Glucose POC Glucose 201 H 149 H 207 H Calcium Phosphorus Magnesium ALT Alkaline Phosphatase Total Creatine Kinase CK-MB (CK-2) Rel Index Troponin T Albumin LDL Cholesterol Direct PTH Intact Salicylates Acetaminophen Crossmatch 05/16/19 05/17/19 05/17/19 17:48 00:01 06:26 WBC RBC Hgb Hct MCV MCH MCHC RDW Plt Count Lymph % (Auto) [place] % (Auto) Eos % (Auto) Baso % (Auto) Lymph # [place] # Eos # Baso # Seg Neutrophils % Seg Neuts % (Manual) Lymphocytes % (Manual) Eosinophils % (Manual) Seg Neutrophils # Lymphocytes # (Manual) Eosinophils # (Manual) PT INR D-Dimer POC ABG pH POC ABG pCO2 POC ABG pO2 ABG pO2 ABG HCO3 ABG Base Excess ABG Hemoglobin Oxyhemoglobin Sodium Potassium Chloride Carbon Dioxide BUN Creatinine Glucose POC Glucose 183 H 176 H 177 H Calcium Phosphorus Magnesium ALT Alkaline Phosphatase Total Creatine Kinase CK-MB (CK-2) Rel Index Troponin T Albumin LDL Cholesterol Direct PTH Intact Salicylates Acetaminophen Crossmatch 05/17/19 05/17/19 05/18/19 12:19 17:45 00:30 WBC RBC Hgb Hct MCV MCH MCHC RDW Plt Count Lymph % (Auto) [place] % (Auto) Eos % (Auto) Baso % (Auto) Lymph # [place] # Eos # Baso # Seg Neutrophils % Seg Neuts % (Manual) Lymphocytes % (Manual) Eosinophils % (Manual) Seg Neutrophils # Lymphocytes # (Manual) Eosinophils # (Manual) PT INR D-Dimer POC ABG pH POC ABG pCO2 POC ABG pO2 ABG pO2 ABG HCO3 ABG Base Excess ABG Hemoglobin Oxyhemoglobin Sodium Potassium Chloride Carbon Dioxide BUN Creatinine Glucose POC Glucose 174 H 171 H 181 H Calcium Phosphorus Magnesium ALT Alkaline Phosphatase Total Creatine Kinase CK-MB (CK-2) Rel Index Troponin T Albumin LDL Cholesterol Direct PTH Intact Salicylates Acetaminophen Crossmatch 05/18/19 05/18/19 05/19/19 06:18 16:53 00:19 WBC RBC Hgb Hct MCV MCH MCHC RDW Plt Count Lymph % (Auto) [place] % (Auto) Eos % (Auto) Baso % (Auto) Lymph # [place] # Eos # Baso # Seg Neutrophils % Seg Neuts % (Manual) Lymphocytes % (Manual) Eosinophils % (Manual) Seg Neutrophils # Lymphocytes # (Manual) Eosinophils # (Manual) PT INR D-Dimer POC ABG pH POC ABG pCO2 POC ABG pO2 ABG pO2 ABG HCO3 ABG Base Excess ABG Hemoglobin Oxyhemoglobin Sodium Potassium Chloride Carbon Dioxide BUN Creatinine Glucose POC Glucose 165 H 166 H 207 H Calcium Phosphorus Magnesium ALT Alkaline Phosphatase Total Creatine Kinase CK-MB (CK-2) Rel Index Troponin T Albumin LDL Cholesterol Direct PTH Intact Salicylates Acetaminophen Crossmatch 05/19/19 05/19/19 05/19/19 01:00 01:00 05:15 WBC 11.6 H RBC 3.12 L Hgb 7.9 L Hct 25.9 L MCV 83 L MCH 25 L MCHC 31 L RDW 21.1 H Plt Count Lymph % (Auto) [place] % (Auto) Eos % (Auto) Baso % (Auto) Lymph # [place] # Eos # Baso # Seg Neutrophils % Seg Neuts % (Manual) Lymphocytes % (Manual) Eosinophils % (Manual) Seg Neutrophils # Lymphocytes # (Manual) Eosinophils # (Manual) PT INR D-Dimer POC ABG pH POC ABG pCO2 POC ABG pO2 ABG pO2 ABG HCO3 ABG Base Excess ABG Hemoglobin Oxyhemoglobin Sodium 135 L Potassium Chloride 93.6 L Carbon Dioxide BUN 64 H Creatinine 2.8 H Glucose 194 H POC Glucose 176 H Calcium Phosphorus Magnesium ALT Alkaline Phosphatase Total Creatine Kinase CK-MB (CK-2) Rel Index Troponin T Albumin LDL Cholesterol Direct PTH Intact Salicylates Acetaminophen Crossmatch 05/19/19 05/19/19 05/20/19 11:21 18:48 00:01 WBC RBC Hgb Hct MCV MCH MCHC RDW Plt Count Lymph % (Auto) [place] % (Auto) Eos % (Auto) Baso % (Auto) Lymph # [place] # Eos # Baso # Seg Neutrophils % Seg Neuts % (Manual) Lymphocytes % (Manual) Eosinophils % (Manual) Seg Neutrophils # Lymphocytes # (Manual) Eosinophils # (Manual) PT INR D-Dimer POC ABG pH POC ABG pCO2 POC ABG pO2 ABG pO2 ABG HCO3 ABG Base Excess ABG Hemoglobin Oxyhemoglobin Sodium Potassium Chloride Carbon Dioxide BUN Creatinine Glucose POC Glucose 162 H 140 H 200 H Calcium Phosphorus Magnesium ALT Alkaline Phosphatase Total Creatine Kinase CK-MB (CK-2) Rel Index Troponin T Albumin LDL Cholesterol Direct PTH Intact Salicylates Acetaminophen Crossmatch 05/20/19 05/20/19 05/21/19 05:58 17:50 00:43 WBC RBC Hgb Hct MCV MCH MCHC RDW Plt Count Lymph % (Auto) [place] % (Auto) Eos % (Auto) Baso % (Auto) Lymph # [place] # Eos # Baso # Seg Neutrophils % Seg Neuts % (Manual) Lymphocytes % (Manual) Eosinophils % (Manual) Seg Neutrophils # Lymphocytes # (Manual) Eosinophils # (Manual) PT INR D-Dimer POC ABG pH POC ABG pCO2 POC ABG pO2 ABG pO2 ABG HCO3 ABG Base Excess ABG Hemoglobin Oxyhemoglobin Sodium Potassium Chloride Carbon Dioxide BUN Creatinine Glucose POC Glucose 132 H 154 H 165 H Calcium Phosphorus Magnesium ALT Alkaline Phosphatase Total Creatine Kinase CK-MB (CK-2) Rel Index Troponin T Albumin LDL Cholesterol Direct PTH Intact Salicylates Acetaminophen Crossmatch 05/21/19 05/21/19 05/21/19 06:06 11:15 17:04 WBC RBC Hgb Hct MCV MCH MCHC RDW Plt Count Lymph % (Auto) [place] % (Auto) Eos % (Auto) Baso % (Auto) Lymph # [place] # Eos # Baso # Seg Neutrophils % Seg Neuts % (Manual) Lymphocytes % (Manual) Eosinophils % (Manual) Seg Neutrophils # Lymphocytes # (Manual) Eosinophils # (Manual) PT INR D-Dimer POC ABG pH POC ABG pCO2 POC ABG pO2 ABG pO2 ABG HCO3 ABG Base Excess ABG Hemoglobin Oxyhemoglobin Sodium Potassium Chloride Carbon Dioxide BUN Creatinine Glucose POC Glucose 178 H 218 H 135 H Calcium Phosphorus Magnesium ALT Alkaline Phosphatase Total Creatine Kinase CK-MB (CK-2) Rel Index Troponin T Albumin LDL Cholesterol Direct PTH Intact Salicylates Acetaminophen Crossmatch 05/21/19 05/22/19 23:25 06:09 WBC RBC Hgb Hct MCV MCH MCHC RDW Plt Count Lymph % (Auto) [place] % (Auto) Eos % (Auto) Baso % (Auto) Lymph # [place] # Eos # Baso # Seg Neutrophils % Seg Neuts % (Manual) Lymphocytes % (Manual) Eosinophils % (Manual) Seg Neutrophils # Lymphocytes # (Manual) Eosinophils # (Manual) PT INR D-Dimer POC ABG pH POC ABG pCO2 POC ABG pO2 ABG pO2 ABG HCO3 ABG Base Excess ABG Hemoglobin Oxyhemoglobin Sodium Potassium Chloride Carbon Dioxide BUN Creatinine Glucose POC Glucose 221 H 140 H Calcium Phosphorus Magnesium ALT Alkaline Phosphatase Total Creatine Kinase CK-MB (CK-2) Rel Index Troponin T Albumin LDL Cholesterol Direct PTH Intact Salicylates Acetaminophen Crossmatch
--- NOTE | 2019-05-22 14:36 | Progress Note ---
Assessment and Plan Cultures: Blood cultures 12/26/2018 no growth today. Blood cultures 01/01/2019 no growth today. Wound cultures 01/02/2019 ESBL Kleb, MDR Ecoli and E raffinosus resistant to penicillin. 03/14 Sputum Cx: MDR Acinetobacter 03/14 BCx: NGTD 03/17 Sputum CX: MDR Acinetobacter 05/19 sputum Cx - unfit for culture Assessment: 63 y/o male with history of ESRD on HD, HTN, CAD S/P CABG, CVA, DM, Atrial Fib, Anemia, Hyperparathyroidism, Hypocalcemia, schizophrenia; well known to ID service from previous admissions, most recently on 12/26/2018 due to sepsis from unstagable necrotic sacral decubitus s/p OR on 01/01/2019 for open excisional debridement of necrotic sacral wound with ESBL Kleb, MDR Ecoli, treated with Meropenem 1 gm IV every 24 hours via tunneled catheter and Vancomycin 1 gm post HD Saturday, and Saturday for 6 weeks ending 02-16-19; readmitted: 1. Sepsis: again with fevers and leukocytosis, tachycardia. Would assume repeat tracheitis. Obtain sputum cultures. Given his history of MDR I would avoid empiric antibiotics as we have so few options left. Will give targeted antibiotics pending sputum results. Strongly need to consider hospice. 2. Hypoxic respiratory failure - per pulmonary. off vent. Capping trials 3. DM2 4. Left 5th finger pressure ulcer: not infected 5. Sacral stage IV ulcer s/p extensive treatment - NOT infected currently; treated with Meropenem 1 gm IV every 24 hours via tunneled catheter and Vancomycin 1 gm post HD Saturday, and Saturday for 6 weeks ending 02-16-19 6. ESRD on HD Recommendations: - sputum cultures with >10 epithelial cells. Fevers have not recurred, would not treat at present. - Would not start antibitoics in the absence of culture data. Fevers have not recurred. - contact precautions - consider hospice, he will continue to develop worsening resistance and we will exhaust all therapeutic options for Acinetobacter very quicky. Will follow. Sherman Shirley MD [facility] ([facility] M: [phone] O: [phone] F: [phone] Subjective Date of service: 05/22/19 Principal diagnosis: Respiratory failure, acute on chronic systolic HF, ESRD Interval history: No acute change at present. Objective - Exam Narrative Exam: Constitutional: Alert, cooperative. No acute distress Neck: Supple, no meningeal signs. Trach in place. Oral: dentition fair, no thrush Cardiovascular: S1, S2 normal. Respiratory: Good air entry, clear to auscultation bilaterally GI: Soft, non-tender; bowel sounds normal. No peritoneal signs. Musculoskeletal: No pedal edema, no cyanosis. Skin: No rash or abscess Neurological: Awake, trached. No gross abnormality - Constitutional Vitals: Vital Signs Temp Pulse Resp BP Pulse Ox 98.8 F 111 H 26 H 109/65 99 05/22/19 10:06 05/22/19 12:12 05/22/19 10:06 05/22/19 12:12 05/22/19 09:13 Temperature -Last 24 Hours Temperature 98.8 F Temperature 98.0 F Temperature 97.4 F Temperature 97.0 F - Labs CBC & Chem 7: 05/19/19 01:00 05/19/19 01:00 Labs: Abnormal lab results 05/21/19 05/21/19 05/22/19 Range/Units 17:04 23:25 06:09 POC Glucose 135 H 221 H 140 H (70-105)
[2019-05-22] MEDS: risperiDONE 1 MG TAB PO SCH (14:49)
[2019-05-22] MEDS: FAMOTIDINE 20 MG TAB PO SCH (14:50)
[2019-05-22] MEDS: SERTRALINE 100 MG TAB PO SCH (14:50)
--- NOTE | 2019-05-22 16:44 | Progress Note ---
Assessment and Plan - Patient Problems (1) ESRD (end stage renal disease) on dialysis Current Visit: Yes Status: Chronic Plan to address problem: End stage renal disease : - access: Left arm AVG Continue hemodialysis Saturday (2) Diabetes mellitus, insulin dependent (IDDM), uncontrolled Current Visit: No Status: Acute Qualifiers: Glycemic state: with hyperglycemia Qualified Code(s): E10.65 - Type 1 diab etes mellitus with hyperglycemia Plan to address problem: DM type II uncontrolled Monitor Fingersticks (3) Anemia in chronic kidney disease, on chronic dialysis Current Visit: Yes Status: Acute Plan to address problem: Anemia of chronic kidney disease hemoglobin 8.8g/dl We'll give Epogen Monitor CBC (4) Hypertension Current Visit: Yes Status: Acute Qualifiers: Hypertension type: essential hypertension Qualified Code(s): I10 - Essential (primary) hypertension Plan to address problem: Hypertension controlled currently on Prn antihypertensives. Monitor blood pressure Subjective Principal diagnosis: Respiratory failure, acute on chronic systolic HF, ESRD Interval history: 63 year old Gentleman with medical history significant for ESRD on hemodialysis at [facility] on Saturday, Saturday and Saturday. via a left arm AVG admitted with acute respiratory failure; and hypotension prolonged hospital course received antibiotics for acinetobacter infection and s/p prolonged need for ventilation requiring Tracheostomy with T piece , now Tracheostomy has been capped. Patient seen today has tracheostomy no lower extremity edema. continue HD MWF oriented to self. Objective - Vital Signs Vital signs: Vital Signs - 12hr 05/22/19 05/22/19 05/22/19 08:40 09:09 09:13 Temperature Pulse Rate Pulse Rate [ 106 H Anterior Bilateral Throughout] Respiratory 18 Rate Respiratory 18 Rate [Anterior Bilateral Throughout] Blood Pressure O2 Sat by Pulse 99 Oximetry O2 Sat by Pulse 99 Oximetry [ Assessment] 05/22/19 05/22/19 05/22/19 10:06 10:15 10:30 Temperature 98.8 F Pulse Rate 111 H 110 H 114 H Pulse Rate [ Anterior Bilateral Throughout] Respiratory 26 H Rate Respiratory Rate [Anterior Bilateral Throughout] Blood Pressure 102/63 117/64 108/60 O2 Sat by Pulse Oximetry O2 Sat by Pulse Oximetry [ Assessment] 05/22/19 05/22/19 05/22/19 10:45 11:00 11:15 Temperature Pulse Rate 113 H 80 118 H Pulse Rate [ Anterior Bilateral Throughout] Respiratory Rate Respiratory Rate [Anterior Bilateral Throughout] Blood Pressure 104/62 112/63 99/56 O2 Sat by Pulse Oximetry O2 Sat by Pulse Oximetry [ Assessment] 05/22/19 05/22/19 05/22/19 11:30 11:45 12:00 Temperature Pulse Rate 115 H 113 H 111 H Pulse Rate [ Anterior Bilateral Throughout] Respiratory Rate Respiratory Rate [Anterior Bilateral Throughout] Blood Pressure 101/68 95/64 98/62 O2 Sat by Pulse Oximetry O2 Sat by Pulse Oximetry [ Assessment] 05/22/19 05/22/19 05/22/19 12:12 12:30 12:45 Temperature Pulse Rate 111 H 106 H 107 H Pulse Rate [ Anterior Bilateral Throughout] Respiratory Rate Respiratory Rate [Anterior Bilateral Throughout] Blood Pressure 109/65 104/55 100/63 O2 Sat by Pulse Oximetry O2 Sat by Pulse Oximetry [ Assessment] 05/22/19 05/22/19 05/22/19 13:00 13:15 13:30 Temperature Pulse Rate 106 H 102 H 105 H Pulse Rate [ Anterior Bilateral Throughout] Respiratory Rate Respiratory Rate [Anterior Bilateral Throughout] Blood Pressure 102/61 101/65 97/64 O2 Sat by Pulse Oximetry O2 Sat by Pulse Oximetry [ Assessment] 05/22/19 05/22/19 13:36 14:52 Temperature Pulse Rate 105 H Pulse Rate [ 102 H Anterior Bilateral Throughout] Respiratory Rate Respiratory 18 Rate [Anterior Bilateral Throughout] Blood Pressure 103/65 O2 Sat by Pulse Oximetry O2 Sat by Pulse Oximetry [ Assessment] - General Appearance General appearance: well-developed, well-nourished EENT: ATNC, PERRL Neck: no JVD Respiratory: Present: Clear to Ascultation Cardiology: regular, S1S2 Gastrointestinal: normal, normoactive bowel sounds Integumentary: no rash, rash Neurologic: alert and oriented x3, CN 3-12 intact Psychiatric: mood/affect appropriate - Lab 05/19/19 01:00 05/19/19 01:00 Most recent lab results ABG pH 7.424 pH Units (7.350-7.450) 03/19/19 04:23 ABG pCO2 48.0 mm Hg 03/19/19 04:23 ABG pO2 78.3 mm Hg (80.0-90.0) L 03/19/19 04:23 ABG HCO3 30.7 mmol/L (20.0-26.0) H 03/19/19 04:23 ABG O2 Saturation 97.0 % (95.0-99.0) 03/19/19 04:23 Calcium 9.5 mg/dL (8.4-10.2) 05/19/19 01:00 Phosphorus 4.30 mg/dL (2.5-4.5) D 03/31/19 10:26 Magnesium 2.70 mg/dL (1.7-2.3) H 03/30/19 10:13 Medications & Allergies - Medications Allergies/Adverse Reactions: Allergies haloperidol [From Haldol] Adverse Reaction (Verified 03/13/18 12:10) Unknown haloperidol lactate [From Haldol] Adverse Reaction (Verified 03/13/18 12:10) Unknown Home Medications: Home Medications Medication Instructions Recorded Confirmed Last Taken Type risperiDONE [RisperDAL] 1 mg PO QAM 03/13/18 02/21/19 Unknown History Sertraline [Zoloft] 100 mg PO QDAY 08/26/18 02/21/19 Unknown History Polyethylene Glycol 3350 [Miralax 17 gm PO QDAY #30 packet 11/05/18 02/21/19 Unknown Rx 3350] Aspirin EC [Halfprin EC] 81 mg PO DAILY #30 11/19/18 02/21/19 Unknown Rx Docusate Sodium [Colace CAP] 100 mg PO BID #60 11/19/18 02/21/19 Unknown Rx Folic Acid [Folvite] 1 mg PO DAILY #30 tab 11/19/18 02/21/19 Unknown Rx Famotidine [Pepcid] 20 mg PO DAILY tablet 12/08/18 02/21/19 Unknown Rx Gabapentin 100 mg PO QHS capsule 12/08/18 02/21/19 Unknown Rx Metoprolol [Lopressor TAB] 50 mg PO BID 30 Days tablet 12/08/18 02/21/19 Unknown Rx Sevelamer Carbonate [Renvela] 800 mg PO TIDWM tablet 12/08/18 02/21/19 Unknown Rx hydrALAZINE [Apresoline TAB] 100 mg PO Q8HR #120 tablet 12/08/18 02/21/19 Unknown Rx Acetaminophen [Acetaminophen TAB] 650 mg PO Q12H PRN 12/15/18 02/21/19 Unknown History Glucagon,Human Recombinant 1 mg IJ Q15MIN PRN 12/15/18 02/21/19 Unknown History [Glucagon Emergency Kit] Insulin Aspart [NovoLOG 100 See Protocol SQ QWEEK 12/15/18 02/21/19 Unknown History UNITS/ML VIAL] Active Medications: Generic Name Dose Route Start Last Admin Trade Name Freq PRN Reason Stop Dose Admin Acetaminophen 650 mg 05/18/19 23:33 05/19/19 10:55 Tylenol PO 650 mg Q6HR PRN Administration PAIN Albuterol/Ipratropium 1 ampul 02/24/19 20:00 05/22/19 14:51 Duoneb *Not For Prn Use* IH 1 ampul TIDRT SANCHEZ Administration Lipase/Protease/Amylase 1 each 04/10/19 15:16 Pancreaze 10,500 Unit FEEDTUBE PRN PRN For Clogged Feeding Tube Epoetin Solitario 20,000 unit 03/24/19 11:17 05/22/19 12:11 Procrit IV 20,000 unit UMA PRN Administration hemodialysis Famotidine 20 mg 02/23/19 10:00 05/22/19 14:50 Pepcid PO 20 mg DAILY SANCHEZ Administration Sodium Chloride 100 mls @ 999 mls/hr 05/13/19 12:45 Nacl 0.9% IV UMA PRN Hypotension Insulin Human Regular 0 units 02/26/19 12:00 05/22/19 12:38 Humulin R SUB-Q Not Given Q6HR [facility] Protocol Metoprolol Tartrate 2.5 mg 02/28/19 12:06 03/15/19 05:15 Lopressor IV 2.5 mg Q4HR PRN Administration Tachycardia Risperidone 1 mg 02/25/19 13:00 05/22/19 14:49 Risperdal PO 1 mg DAILY SANCHEZ Administration Sertraline HCl 100 mg 02/25/19 13:00 05/22/19 14:50 Zoloft PO 100 mg DAILY SANCHEZ Administration Simple Syrup 15 ml 04/10/19 15:16 Simple Syrup FEEDTUBE PRN PRN Hypoglycemia Simple Syrup 30 ml 04/10/19 15:16 Simple Syrup FEEDTUBE PRN PRN Hypoglycemia Sodium Bicarbonate 325 mg 04/10/19 15:16 Sodium Bicarbonate FEEDTUBE PRN PRN For Clogged Feeding Tube Sodium Hypochlorite 1 applic 04/01/19 13:00 05/21/19 23:34 Dakin's Half Strength TP 1 applicatio BID SANCHEZ Administration
[2019-05-22] MEDS: SODIUM HYPOCHLORITE, DAKIN'S 1/2 STRENGTH (0.25%) 473 ML TOPICAL SOLN TP SCH ×2 (18:33→22:40)
[2019-05-22] MEDS: ACETAMINOPHEN 325 MG TAB PO PRN (22:40)
[2019-05-23] MEDS: INSULIN REGULAR, HUMAN 100 UNITS/1 ML SUB-Q SCH ×5 (03:38→18:05)
--- NOTE | 2019-05-23 07:23 | Progress Note ---
Assessment and Plan Assessment and plan: Patient is a 63-year-old -Russian man from [facility] with a plethora of co-morbidities including blindness, CVA, CHF, PPM/ICD, loop recorder since 2012 that is MRI compatible, IDDM type 2, sepsis left foot ulcer, afib, ESRD with complications on HD TTS, hypertension, AOCD and GERD who presented to the ED with hypotensive after intubation in the emergency room., diagnosed with fluid overload, pleural effusion. Patient has had recurrent admission in the hospital for similar reason and was recently discharged from the hospital following treatment of Severe Sepsis due to Necrotizing Unstagable sacral decubitus ulcer with ostemomylitis, expected to complete abx on discharge till 02/16/19. Fever has resolved mgt per ID, continue to monitor off antibiotics Trach and peg done HR control improved with change in BB. Acute respiratory failure on mechanical ventilator >96 hrs Trach is capped Acute pulmonary edema, fluid overload on CXR Fluid management with dialysis Necrotizing Unstagable sacral decubitus ulcer with ostemomyelitis Wound care, Dilated CMP Cardiomyiopathy EF 35-40% Continue diuresis PPM/ICD Acute encephalopathy, probably metabolic or toxic Continues on Mechanical ventilator. ESRD on hemodialysis nephrology following Vascular eval. done re: LUE AV graft, see note Bilateral pleural effusions Anticipate improvement with Permanent atrial fibrillation and flutter Not on anticoagulation because of anemia thrombocytopenia Rate control. 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 -Pt is s/p x1 DDVAP DVT prophylaxis Lovenox DNR poor prognosis Disposition, needs SNF with dialysis chair time History Interval history: no fevers remains demented no vomiting, no agitation, no seizures Hospitalist Physical - Physical exam Narrative exam: Constitutional: no acute distress, opens eyes, says hello Eyes: non-icteric ENT: oropharynx moist Neck: supple Effort: normal Ascultation: Bilateral: other (coarse BS bilaterally) Percussion: Bilateral: not dull Cardiovascular: regular rate and rhythm (no mrg) Gastrointestinal: normoactive bowel sounds, soft, non-tender, non-distended, other (ostomy in place, brown stool) Extremities: no cyanosis, no edema, pink and warm Neurologic: other (mild weakness LUE, o/w nonfocal), demented, turns and say hello Psychiatric: other (unable to assess) SKIN; Left 5th finger, stage 4 pressure ulcer,Left heel, deep tissue injury, Sacrum, stage 4 pressure ulcer POA - Constitutional Vitals: Temp Pulse Resp BP Pulse Ox 98.1 F 108 H 20 118/67 98 05/23/19 05:14 05/23/19 05:14 05/23/19 05:14 05/23/19 05:14 05/23/19 05:14 General appearance: Present: no acute distress, other (T peace). Absent: well- nourished Results - Labs CBC & Chem 7: 05/19/19 01:00 05/19/19 01:00 Labs: Laboratory Last Values WBC 11.6 K/mm3 (4.5-11.0) H 05/19/19 01:00 RBC 3.12 M/mm3 (3.65-5.03) L 05/19/19 01:00 Hgb 7.9 gm/dl (11.8-15.2) L 05/19/19 01:00 Hct 25.9 % (35.5-45.6) L 05/19/19 01:00 MCV 83 fl (84-94) L 05/19/19 01:00 MCH 25 pg (28-32) L 05/19/19 01:00 MCHC 31 % (32-34) L 05/19/19 01:00 RDW 21.1 % (13.2-15.2) H 05/19/19 01:00 Plt Count 386 K/mm3 (140-440) 05/19/19 01:00 Lymph % (Auto) 6.9 % (13.4-35.0) L 05/12/19 07:15 [place] % (Auto) 7.3 % (0.0-7.3) 05/12/19 07:15 Eos % (Auto) 6.5 % (0.0-4.3) H 05/12/19 07:15 Baso % (Auto) 0.7 % (0.0-1.8) 05/12/19 07:15 Lymph # 0.7 K/mm3 (1.2-5.4) L 05/12/19 07:15 [place] # 0.7 K/mm3 (0.0-0.8) 05/12/19 07:15 Eos # 0.6 K/mm3 (0.0-0.4) H 05/12/19 07:15 Baso # 0.1 K/mm3 (0.0-0.1) 05/12/19 07:15 Add Manual Diff Complete 03/21/19 06:30 Total Counted 100 03/21/19 06:30 Seg Neutrophils % 78.6 % (40.0-70.0) H 05/12/19 07:15 Seg Neuts % (Manual) 81.0 % (40.0-70.0) H 03/21/19 06:30 Band Neutrophils % 0 % 03/21/19 06:30 Lymphocytes % (Manual) 8.0 % (13.4-35.0) L 03/21/19 06:30 Reactive Lymphs % (Man) 0 % 03/21/19 06:30 Monocytes % (Manual) 1.0 % (0.0-7.3) 03/21/19 06:30 Eosinophils % (Manual) 8.0 % (0.0-4.3) H 03/21/19 06:30 Basophils % (Manual) 1.0 % (0.0-1.8) 03/21/19 06:30 Metamyelocytes % 1.0 % 03/21/19 06:30 Myelocytes % 0 % 03/21/19 06:30 Promyelocytes % 0 % 03/21/19 06:30 Blast Cells % 0 % 03/21/19 06:30 Nucleated RBC % Not Reportable 03/21/19 06:30 Seg Neutrophils # 7.8 K/mm3 (1.8-7.7) H 05/12/19 07:15 Seg Neutrophils # Man 6.7 K/mm3 (1.8-7.7) 03/21/19 06:30 Band Neutrophils # 0.0 K/mm3 03/21/19 06:30 Lymphocytes # (Manual) 0.7 K/mm3 (1.2-5.4) L 03/21/19 06:30 Abs React Lymphs (Man) 0.0 K/mm3 03/21/19 06:30 Monocytes # (Manual) 0.1 K/mm3 (0.0-0.8) 03/21/19 06:30 Eosinophils # (Manual) 0.7 K/mm3 (0.0-0.4) H 03/21/19 06:30 Basophils # (Manual) 0.1 K/mm3 (0.0-0.1) 03/21/19 06:30 Metamyelocytes # 0.1 K/mm3 03/21/19 06:30 Myelocytes # 0.0 K/mm3 03/21/19 06:30 Promyelocytes # 0.0 K/mm3 03/21/19 06:30 Blast Cells # 0.0 K/mm3 03/21/19 06:30 WBC Morphology Not Reportable 03/21/19 06:30 Hypersegmented Neuts Not Reportable 03/21/19 06:30 Hyposegmented Neuts Not Reportable 03/21/19 06:30 Hypogranular Neuts Not Reportable 03/21/19 06:30 Smudge Cells Not Reportable 03/21/19 06:30 Toxic Granulation Not Reportable 03/21/19 06:30 Toxic Vacuolation Not Reportable 03/21/19 06:30 Dohle Bodies Not Reportable 03/21/19 06:30 Pelger-Huet Anomaly Not Reportable 03/21/19 06:30 Tramaine Rods Not Reportable 03/21/19 06:30 Platelet Estimate Consistent w auto 03/21/19 06:30 Clumped Platelets Not Reportable 03/21/19 06:30 Plt Clumps, EDTA Not Reportable 03/21/19 06:30 Large Platelets Not Reportable 03/21/19 06:30 Giant Platelets Not Reportable 03/21/19 06:30 Platelet Satelliting Not Reportable 03/21/19 06:30 Plt Morphology Comment Not Reportable 03/21/19 06:30 RBC Morphology Not Reportable 03/21/19 06:30 Dimorphic RBCs Not Reportable 03/21/19 06:30 Polychromasia Not Reportable 03/21/19 06:30 Hypochromasia Few 03/21/19 06:30 Poikilocytosis Few 03/21/19 06:30 Anisocytosis Few 03/21/19 06:30 Microcytosis Not Reportable 03/21/19 06:30 Macrocytosis Not Reportable 03/21/19 06:30 Spherocytes Not Reportable 03/21/19 06:30 Pappenheimer Bodies Not Reportable 03/21/19 06:30 Sickle Cells Not Reportable 03/21/19 06:30 Target Cells 1+ 03/21/19 06:30 Tear Drop Cells Not Reportable 03/21/19 06:30 Ovalocytes Few 03/21/19 06:30 Helmet Cells Not Reportable 03/21/19 06:30 Zhou-Bonney Bodies Not Reportable 03/21/19 06:30 Altair Rings Not Reportable 03/21/19 06:30 [place] Cells Not Reportable 03/21/19 06:30 Bite Cells Not Reportable 03/21/19 06:30 Crenated Cell Not Reportable 03/21/19 06:30 Elliptocytes Not Reportable 03/21/19 06:30 Acanthocytes (Spur) Not Reportable 03/21/19 06:30 Rouleaux Not Reportable 03/21/19 06:30 Hemoglobin C Crystals Not Reportable 03/21/19 06:30 Schistocytes Not Reportable 03/21/19 06:30 Malaria parasites Not Reportable 03/21/19 06:30 Jose Juan Bodies Not Reportable 03/21/19 06:30 Hem Pathologist Commnt No 03/21/19 06:30 PT 16.3 Sec. (12.2-14.9) H 03/01/19 09:39 INR 1.35 (0.87-1.13) H 03/01/19 09:39 APTT 33.7 Sec. (24.2-36.6) 02/21/19 18:30 D-Dimer 2987.82 ng/mlDDU (0-234) H 02/22/19 05:54 POC ABG pH 7.510 (7.35-7.45) H 03/18/19 06:38 ABG pH 7.424 pH Units (7.350-7.450) 03/19/19 04:23 POC ABG pCO2 38.9 (35-45) 03/18/19 06:38 ABG pCO2 48.0 mm Hg 03/19/19 04:23 POC ABG pO2 164 (80-105) H 03/18/19 06:38 ABG pO2 78.3 mm Hg (80.0-90.0) L 03/19/19 04:23 POC ABG HCO3 31.0 (22-26 mml/L) 03/18/19 06:38 ABG HCO3 30.7 mmol/L (20.0-26.0) H 03/19/19 04:23 POC ABG Total CO2 32 (23-27mmol/L) 03/18/19 06:38 POC ABG O2 Sat 100 03/18/19 06:38 ABG O2 Saturation 97.0 % (95.0-99.0) 03/19/19 04:23 ABG O2 Content 7.9 (0.0-44) 03/19/19 04:23 POC ABG Base Excess 8 ((-2) - (+3)mmol/L) 03/18/19 06:38 ABG Base Excess 5.8 mmol/L (-2.0-3.0) H 03/19/19 04:23 ABG Hemoglobin 5.8 gm/dl (14.0-18.0) L 03/19/19 04:23 ABG Carboxyhemoglobin 2.0 % (0.0-5.0) 03/19/19 04:23 ABG Methemoglobin 0.4 % (0.0-1.5) 03/19/19 04:23 Oxyhemoglobin 94.6 % (95.0-99.0) L 03/19/19 04:23 FiO2 35 % 03/19/19 04:23 Sodium 135 mmol/L (137-145) L 05/19/19 01:00 Potassium 3.9 mmol/L (3.6-5.0) 05/19/19 01:00 Chloride 93.6 mmol/L (98-107) L 05/19/19 01:00 Carbon Dioxide 29 mmol/L (22-30) 05/19/19 01:00 Anion Gap 16 mmol/L 05/19/19 01:00 BUN 64 mg/dL (9-20) H 05/19/19 01:00 Creatinine 2.8 mg/dL (0.8-1.5) H 05/19/19 01:00 Estimated GFR 28 ml/min 05/19/19 01:00 BUN/Creatinine Ratio 23 % 05/19/19 01:00 Glucose 194 mg/dL (75-100) H 05/19/19 01:00 POC Glucose 188 (70-105) H 05/23/19 05:23 Lactic Acid 1.00 mmol/L (0.7-2.0) 02/21/19 20:58 Calcium 9.5 mg/dL (8.4-10.2) 05/19/19 01:00 Phosphorus 4.30 mg/dL (2.5-4.5) D 03/31/19 10:26 Magnesium 2.70 mg/dL (1.7-2.3) H 03/30/19 10:13 Total Bilirubin 0.20 mg/dL (0.1-1.2) 03/30/19 10:13 AST 16 units/L (5-40) 03/30/19 10:13 ALT 11 units/L (7-56) 03/30/19 10:13 Alkaline Phosphatase 185 units/L (35-129) H 03/30/19 10:13 Ammonia 28.0 umol/L (25-60) 02/21/19 20:04 Total Creatine Kinase 64 units/L (55-170) 02/22/19 03:42 CK-MB (CK-2) 3.7 ng/mL (0.0-4.0) 02/22/19 03:42 CK-MB (CK-2) Rel Index 5.7 (0-4) H 02/22/19 03:42 Troponin T 0.193 ng/mL (0.00-0.029) H* 02/22/19 03:42 Total Protein 6.9 g/dL (6.3-8.2) 03/30/19 10:13 Albumin 2.6 g/dL (3.9-5) L 03/30/19 10:13 Albumin/Globulin Ratio 0.6 % 03/30/19 10:13 Triglycerides 51 mg/dL (2-149) 02/21/19 18:30 Cholesterol 82 mg/dL (50-199) 02/21/19 18:30 LDL Cholesterol Direct 36 mg/dL (50-130) L 02/21/19 18:30 HDL Cholesterol 40 mg/dL (40-59) 02/21/19 18:30 Cholesterol/HDL Ratio 2.05 % 02/21/19 18:30 TSH 2.760 mlU/mL (0.270-4.200) 02/21/19 20:04 PTH Intact 267.6 pg/mL (15-65) H 03/02/19 05:15 Salicylates < 0.3 mg/dL (2.8-20.0) L 02/21/19 20:04 Acetaminophen < 5.0 ug/mL (10.0-30.0) L 02/21/19 20:04 Hepatitis A IgM Ab Non-reactive (NonReactive) 04/30/19 14:11 Hep Bs Antigen Non-reactive (Negative) 04/30/19 14:11 Hep B Core IgM Ab Non-reactive (NonReactive) 04/30/19 14:11 Hepatitis C Antibody Non-reactive (NonReactive) 04/30/19 14:11 Blood Type O POSITIVE 05/04/19 12:55 Antibody Screen Negative 05/04/19 12:55 Crossmatch See Detail 05/04/19 12:55 Active Medications - Current Medications Current Medications: Generic Name Dose Route Start Last Admin Trade Name Freq PRN Reason Stop Dose Admin Acetaminophen 650 mg 05/18/19 23:33 05/22/19 22:40 Tylenol PO 650 mg Q6HR PRN Administration PAIN Albuterol/Ipratropium 1 ampul 02/24/19 20:00 05/22/19 21:51 Duoneb *Not For Prn Use* IH 1 ampul TIDRT SANCHEZ Administration Lipase/Protease/Amylase 1 each 04/10/19 15:16 Pancreaze 10,500 Unit FEEDTUBE PRN PRN For Clogged Feeding Tube Epoetin Solitario 20,000 unit 03/24/19 11:17 05/22/19 12:11 Procrit IV 20,000 unit UMA PRN Administration hemodialysis Famotidine 20 mg 02/23/19 10:00 05/22/19 14:50 Pepcid PO 20 mg DAILY SANCHEZ Administration Sodium Chloride 100 mls @ 999 mls/hr 05/13/19 12:45 Nacl 0.9% IV UMA PRN Hypotension Insulin Human Regular 0 units 02/26/19 12:00 05/23/19 06:18 Humulin R SUB-Q 2 units Q6HR SANCHEZ Administration Protocol Metoprolol Tartrate 2.5 mg 02/28/19 12:06 03/15/19 05:15 Lopressor IV 2.5 mg Q4HR PRN Administration Tachycardia Risperidone 1 mg 02/25/19 13:00 05/22/19 14:49 Risperdal PO 1 mg DAILY SANCHEZ Administration Sertraline HCl 100 mg 02/25/19 13:00 05/22/19 14:50 Zoloft PO 100 mg DAILY SANCHEZ Administration Simple Syrup 15 ml 04/10/19 15:16 Simple Syrup FEEDTUBE PRN PRN Hypoglycemia Simple Syrup 30 ml 04/10/19 15:16 Simple Syrup FEEDTUBE PRN PRN Hypoglycemia Sodium Bicarbonate 325 mg 04/10/19 15:16 Sodium Bicarbonate FEEDTUBE PRN PRN For Clogged Feeding Tube Sodium Hypochlorite 1 applic 04/01/19 13:00 05/22/19 22:40 Dakin's Half Strength TP 1 applicatio BID SANCHEZ Administration Nutrition/Malnutrition Assess - Dietary Evaluation Nutrition/Malnutrition Findings: Nutrition Notes Start: 02/22/19 12:51 Freq: Status: Active Protocol: Document 05/21/19 12:03 DW (Rec: 05/21/19 12:13 DW [id number]) Co-Sign 05/21/19 12:03 Nutrition Notes Initial or Follow up Reassessment Current Diagnosis CKD (stage V CKD),Diabetes, Hypertension,Heart Failure Other Pertinent Diagnosis Sacral PU, ESRD on HD (T/Thurs /Sat), Schizophrenia,Blind in L eye,S/P trach Current Diet Nepro at 50 ml/hr w/Abhilash BID Labs/Tests POC Glu: 218 Pertinent Medications Reviewed Height 5 ft 10 in Weight 74.7 kg [place] Body Weight (kg) 75.45 BMI 23.6 Weight change and time frame Wt loss noted. Likely d/t fluid change. Subjective/Other Information Upon arrival noted tube feed was running at goal. Per nurse pt is receiving Abhilash Percent of energy/protein needs met: 100%/100% Burn Absent Trauma Absent Minimum of two criteria No #2 Nutrition Diagnosis Increased nutrient needs ( specify in comment below) Diagnosis Progress(for reassessment Continues documentation) #1 Nutrition Diagnosis Inadequate oral intake Diagnosis Progress(for reassessment Continues documentation) Is patient on ventilator? No Is Patient Ambulatory and/or Out of Bed No REE-([place]-St. Jeor-confined to bed) 1857.144 Kcal/Kg value to use for calculation 32 Approximate Energy Requirements Using 2390 kcal/Kg Calculation Used for Recommendations Kcal/kg Additional Notes PRO: 82-103g/day(1.2-1.5g/kg) Fluid: per MD Nutrition Intervention Change Diet Order: Continue TF Nutrition Support: Nepro with Carbsteady 1.8 at 50 ml/hr Flush 200 ml q4hr Kcal 2,160 Protein (gm) 97 Fluid (mL) 872 Add Supplement/Snack (indicate name/kcal Abhilash BID /protein ) Provides kCal: 190 Provides Protein (gm) 5 Goal #1 Continue to meet at least 75% of calorie and protein needs via TF Anticipated Discharge Needs: TF Follow-Up By: 05/28/19 Additional Comments F/U for TF tolereance and Abhilash
[2019-05-23] MEDS: IPRATROPIUM/ALBUTEROL SULFATE 3 ML AMPUL.NEB IH SCH ×3 (09:50→20:14)
[2019-05-23] MEDS: SERTRALINE 100 MG TAB PO SCH (11:27)
[2019-05-23] MEDS: FAMOTIDINE 20 MG TAB PO SCH (11:27)
[2019-05-23] MEDS: risperiDONE 1 MG TAB PO SCH (11:27)
[2019-05-23] MEDS: SODIUM HYPOCHLORITE, DAKIN'S 1/2 STRENGTH (0.25%) 473 ML TOPICAL SOLN TP SCH ×2 (11:28→23:46)
--- NOTE | 2019-05-23 16:47 | Progress Note ---
Assessment and Plan - Patient Problems (1) ESRD (end stage renal disease) on dialysis Current Visit: Yes Status: Chronic Plan to address problem: End stage renal disease : - access: Left arm AVG Continue hemodialysis Saturday (2) Diabetes mellitus, insulin dependent (IDDM), uncontrolled Current Visit: No Status: Acute Qualifiers: Glycemic state: with hyperglycemia Qualified Code(s): E10.65 - Type 1 diab etes mellitus with hyperglycemia Plan to address problem: DM type II uncontrolled Monitor Fingersticks (3) Anemia in chronic kidney disease, on chronic dialysis Current Visit: Yes Status: Acute Plan to address problem: Anemia of chronic kidney disease hemoglobin 8.8g/dl We'll give Epogen Monitor CBC (4) Hypertension Current Visit: Yes Status: Acute Qualifiers: Hypertension type: essential hypertension Qualified Code(s): I10 - Essential (primary) hypertension Plan to address problem: Hypertension controlled currently on Prn antihypertensives. Monitor blood pressure Subjective Principal diagnosis: Respiratory failure, acute on chronic systolic HF, ESRD Interval history: 63 year old Gentleman with medical history significant for ESRD on hemodialysis at [facility] on Saturday, Saturday and Saturday. via a left arm AVG admitted with acute respiratory failure; and hypotension prolonged hospital course received antibiotics for acinetobacter infection and s/p prolonged need for ventilation requiring Tracheostomy with T piece , now Tracheostomy has been capped. Patient seen today has tracheostomy no lower extremity edema. continue HD MWF oriented to self. Objective - Vital Signs Vital signs: Vital Signs - 12hr 05/23/19 05:14 Temperature 98.1 F Pulse Rate 108 H Respiratory 20 Rate Blood Pressure 118/67 O2 Sat by Pulse 98 Oximetry - General Appearance General appearance: chronically ill, frail EENT: ATNC Neck: no JVD Respiratory: Present: Clear to Ascultation Cardiology: regular, S1S2 Gastrointestinal: normal, normoactive bowel sounds Integumentary: no rash Neurologic: disoriented, CN 3-12 intact Psychiatric: agitated - Lab 05/19/19 01:00 05/19/19 01:00 Most recent lab results ABG pH 7.424 pH Units (7.350-7.450) 03/19/19 04:23 ABG pCO2 48.0 mm Hg 03/19/19 04:23 ABG pO2 78.3 mm Hg (80.0-90.0) L 03/19/19 04:23 ABG HCO3 30.7 mmol/L (20.0-26.0) H 03/19/19 04:23 ABG O2 Saturation 97.0 % (95.0-99.0) 03/19/19 04:23 Calcium 9.5 mg/dL (8.4-10.2) 05/19/19 01:00 Phosphorus 4.30 mg/dL (2.5-4.5) D 03/31/19 10:26 Magnesium 2.70 mg/dL (1.7-2.3) H 03/30/19 10:13 - Imaging Chest x-ray: image reviewed (i reviewed cxr with improvement in congestion. ) Medications & Allergies - Medications Allergies/Adverse Reactions: Allergies haloperidol [From Haldol] Adverse Reaction (Verified 03/13/18 12:10) Unknown haloperidol lactate [From Haldol] Adverse Reaction (Verified 03/13/18 12:10) Unknown Home Medications: Home Medications Medication Instructions Recorded Confirmed Last Taken Type risperiDONE [RisperDAL] 1 mg PO QAM 03/13/18 02/21/19 Unknown History Sertraline [Zoloft] 100 mg PO QDAY 08/26/18 02/21/19 Unknown History Polyethylene Glycol 3350 [Miralax 17 gm PO QDAY #30 packet 11/05/18 02/21/19 Unknown Rx 3350] Aspirin EC [Halfprin EC] 81 mg PO DAILY #30 11/19/18 02/21/19 Unknown Rx Docusate Sodium [Colace CAP] 100 mg PO BID #60 11/19/18 02/21/19 Unknown Rx Folic Acid [Folvite] 1 mg PO DAILY #30 tab 11/19/18 02/21/19 Unknown Rx Famotidine [Pepcid] 20 mg PO DAILY tablet 12/08/18 02/21/19 Unknown Rx Gabapentin 100 mg PO QHS capsule 12/08/18 02/21/19 Unknown Rx Metoprolol [Lopressor TAB] 50 mg PO BID 30 Days tablet 12/08/18 02/21/19 Unknown Rx Sevelamer Carbonate [Renvela] 800 mg PO TIDWM tablet 12/08/18 02/21/19 Unknown Rx hydrALAZINE [Apresoline TAB] 100 mg PO Q8HR #120 tablet 12/08/18 02/21/19 Unknown Rx Acetaminophen [Acetaminophen TAB] 650 mg PO Q12H PRN 12/15/18 02/21/19 Unknown History Glucagon,Human Recombinant 1 mg IJ Q15MIN PRN 12/15/18 02/21/19 Unknown History [Glucagon Emergency Kit] Insulin Aspart [NovoLOG 100 See Protocol SQ QWEEK 12/15/18 02/21/19 Unknown History UNITS/ML VIAL] Active Medications: Generic Name Dose Route Start Last Admin Trade Name Freq PRN Reason Stop Dose Admin Acetaminophen 650 mg 05/18/19 23:33 05/22/19 22:40 Tylenol PO 650 mg Q6HR PRN Administration PAIN Albuterol/Ipratropium 1 ampul 02/24/19 20:00 05/23/19 14:45 Duoneb *Not For Prn Use* IH 1 ampul TIDRT SANCHEZ Administration Lipase/Protease/Amylase 1 each 04/10/19 15:16 Pancreaze 10,500 Unit FEEDTUBE PRN PRN For Clogged Feeding Tube Epoetin Solitario 20,000 unit 03/24/19 11:17 05/22/19 12:11 Procrit IV 20,000 unit UMA PRN Administration hemodialysis Famotidine 20 mg 02/23/19 10:00 05/23/19 11:27 Pepcid PO 20 mg DAILY SANCHEZ Administration Sodium Chloride 100 mls @ 999 mls/hr 05/13/19 12:45 Nacl 0.9% IV UMA PRN Hypotension Insulin Human Regular 0 units 02/26/19 12:00 05/23/19 12:53 Humulin R SUB-Q 1 units Q6HR SANCHEZ Administration Protocol Metoprolol Tartrate 2.5 mg 02/28/19 12:06 03/15/19 05:15 Lopressor IV 2.5 mg Q4HR PRN Administration Tachycardia Risperidone 1 mg 02/25/19 13:00 05/23/19 11:27 Risperdal PO 1 mg DAILY SANCHEZ Administration Sertraline HCl 100 mg 02/25/19 13:00 05/23/19 11:27 Zoloft PO 100 mg DAILY SANCHEZ Administration Simple Syrup 15 ml 04/10/19 15:16 Simple Syrup FEEDTUBE PRN PRN Hypoglycemia Simple Syrup 30 ml 04/10/19 15:16 Simple Syrup FEEDTUBE PRN PRN Hypoglycemia Sodium Bicarbonate 325 mg 04/10/19 15:16 Sodium Bicarbonate FEEDTUBE PRN PRN For Clogged Feeding Tube Sodium Hypochlorite 1 applic 04/01/19 13:00 05/23/19 11:28 Dakin's Half Strength TP 1 applicatio BID SANCHEZ Administration
[2019-05-24] MEDS: INSULIN REGULAR, HUMAN 100 UNITS/1 ML SUB-Q SCH ×4 (00:28→17:40)
[2019-05-24] MEDS: IPRATROPIUM/ALBUTEROL SULFATE 3 ML AMPUL.NEB IH SCH ×3 (08:27→20:56)
[2019-05-24] MEDS: SODIUM HYPOCHLORITE, DAKIN'S 1/2 STRENGTH (0.25%) 473 ML TOPICAL SOLN TP SCH ×2 (09:36→22:12)
[2019-05-24] MEDS: FAMOTIDINE 20 MG TAB PO SCH (09:37)
[2019-05-24] MEDS: SERTRALINE 100 MG TAB PO SCH (09:37)
[2019-05-24] MEDS: risperiDONE 1 MG TAB PO SCH (09:37)
--- NOTE | 2019-05-24 11:40 | Progress Note ---
Assessment and Plan Assessment and plan: Patient is a 63-year-old -[place] man from [facility] with a plethora of co-morbidities including blindness, CVA, CHF, PPM/ICD, loop recorder since 2012 that is MRI compatible, IDDM type 2, sepsis left foot ulcer, afib, ESRD with complications on HD TTS, hypertension, AOCD and GERD who presented to the ED with hypotensive after intubation in the emergency room., diagnosed with fluid overload, pleural effusion. Patient has had recurrent admission in the hospital for similar reason and was recently discharged from the hospital following treatment of Severe Sepsis due to Necrotizing Unstagable sacral decubitus ulcer with ostemomylitis, expected to complete abx on discharge till 02/16/19. Fever has resolved mgt per ID, continue to monitor off antibiotics Trach and peg done HR control improved with change in BB. Acute respiratory failure on mechanical ventilator >96 hrs Trach is capped Acute pulmonary edema, fluid overload on CXR Fluid management with dialysis Necrotizing Unstagable sacral decubitus ulcer with ostemomyelitis Wound care, Dilated CMP Cardiomyiopathy EF 35-40% Continue diuresis PPM/ICD Acute encephalopathy, probably metabolic or toxic Continues on Mechanical ventilator. ESRD on hemodialysis nephrology following Vascular eval. done re: LUE AV graft, see note Bilateral pleural effusions Anticipate improvement with Permanent atrial fibrillation and flutter Not on anticoagulation because of anemia thrombocytopenia Rate control. 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 -Pt is s/p x1 DDVAP DVT prophylaxis Lovenox DNR poor prognosis Disposition, needs SNF with dialysis chair time History Interval history: no fevers remains demented no vomiting, no agitation, no seizures Hospitalist Physical - Physical exam Narrative exam: Constitutional: no acute distress, opens eyes, says hello Eyes: non-icteric ENT: oropharynx moist Neck: supple Effort: normal Ascultation: Bilateral: other (coarse BS bilaterally) Percussion: Bilateral: not dull Cardiovascular: regular rate and rhythm (no mrg) Gastrointestinal: normoactive bowel sounds, soft, non-tender, non-distended, other (ostomy in place, brown stool) Extremities: no cyanosis, no edema, pink and warm Neurologic: other (mild weakness LUE, o/w nonfocal), demented, turns and say hello Psychiatric: other (unable to assess) SKIN; Left 5th finger, stage 4 pressure ulcer,Left heel, deep tissue injury, Sacrum, stage 4 pressure ulcer POA - Constitutional Vitals: Temp Pulse Resp BP Pulse Ox 98.0 F 70 18 120/61 100 05/24/19 05:44 05/24/19 08:29 05/24/19 08:29 05/24/19 05:44 05/24/19 05:44 General appearance: Present: no acute distress, other (T peace). Absent: well- nourished Results - Labs CBC & Chem 7: 05/19/19 01:00 05/19/19 01:00 Labs: Laboratory Last Values WBC 11.6 K/mm3 (4.5-11.0) H 05/19/19 01:00 RBC 3.12 M/mm3 (3.65-5.03) L 05/19/19 01:00 Hgb 7.9 gm/dl (11.8-15.2) L 05/19/19 01:00 Hct 25.9 % (35.5-45.6) L 05/19/19 01:00 MCV 83 fl (84-94) L 05/19/19 01:00 MCH 25 pg (28-32) L 05/19/19 01:00 MCHC 31 % (32-34) L 05/19/19 01:00 RDW 21.1 % (13.2-15.2) H 05/19/19 01:00 Plt Count 386 K/mm3 (140-440) 05/19/19 01:00 Lymph % (Auto) 6.9 % (13.4-35.0) L 05/12/19 07:15 [place] % (Auto) 7.3 % (0.0-7.3) 05/12/19 07:15 Eos % (Auto) 6.5 % (0.0-4.3) H 05/12/19 07:15 Baso % (Auto) 0.7 % (0.0-1.8) 05/12/19 07:15 Lymph # 0.7 K/mm3 (1.2-5.4) L 05/12/19 07:15 [place] # 0.7 K/mm3 (0.0-0.8) 05/12/19 07:15 Eos # 0.6 K/mm3 (0.0-0.4) H 05/12/19 07:15 Baso # 0.1 K/mm3 (0.0-0.1) 05/12/19 07:15 Add Manual Diff Complete 03/21/19 06:30 Total Counted 100 03/21/19 06:30 Seg Neutrophils % 78.6 % (40.0-70.0) H 05/12/19 07:15 Seg Neuts % (Manual) 81.0 % (40.0-70.0) H 03/21/19 06:30 Band Neutrophils % 0 % 03/21/19 06:30 Lymphocytes % (Manual) 8.0 % (13.4-35.0) L 03/21/19 06:30 Reactive Lymphs % (Man) 0 % 03/21/19 06:30 Monocytes % (Manual) 1.0 % (0.0-7.3) 03/21/19 06:30 Eosinophils % (Manual) 8.0 % (0.0-4.3) H 03/21/19 06:30 Basophils % (Manual) 1.0 % (0.0-1.8) 03/21/19 06:30 Metamyelocytes % 1.0 % 03/21/19 06:30 Myelocytes % 0 % 03/21/19 06:30 Promyelocytes % 0 % 03/21/19 06:30 Blast Cells % 0 % 03/21/19 06:30 Nucleated RBC % Not Reportable 03/21/19 06:30 Seg Neutrophils # 7.8 K/mm3 (1.8-7.7) H 05/12/19 07:15 Seg Neutrophils # Man 6.7 K/mm3 (1.8-7.7) 03/21/19 06:30 Band Neutrophils # 0.0 K/mm3 03/21/19 06:30 Lymphocytes # (Manual) 0.7 K/mm3 (1.2-5.4) L 03/21/19 06:30 Abs React Lymphs (Man) 0.0 K/mm3 03/21/19 06:30 Monocytes # (Manual) 0.1 K/mm3 (0.0-0.8) 03/21/19 06:30 Eosinophils # (Manual) 0.7 K/mm3 (0.0-0.4) H 03/21/19 06:30 Basophils # (Manual) 0.1 K/mm3 (0.0-0.1) 03/21/19 06:30 Metamyelocytes # 0.1 K/mm3 03/21/19 06:30 Myelocytes # 0.0 K/mm3 03/21/19 06:30 Promyelocytes # 0.0 K/mm3 03/21/19 06:30 Blast Cells # 0.0 K/mm3 03/21/19 06:30 WBC Morphology Not Reportable 03/21/19 06:30 Hypersegmented Neuts Not Reportable 03/21/19 06:30 Hyposegmented Neuts Not Reportable 03/21/19 06:30 Hypogranular Neuts Not Reportable 03/21/19 06:30 Smudge Cells Not Reportable 03/21/19 06:30 Toxic Granulation Not Reportable 03/21/19 06:30 Toxic Vacuolation Not Reportable 03/21/19 06:30 Dohle Bodies Not Reportable 03/21/19 06:30 Pelger-Huet Anomaly Not Reportable 03/21/19 06:30 Tramaine Rods Not Reportable 03/21/19 06:30 Platelet Estimate Consistent w auto 03/21/19 06:30 Clumped Platelets Not Reportable 03/21/19 06:30 Plt Clumps, EDTA Not Reportable 03/21/19 06:30 Large Platelets Not Reportable 03/21/19 06:30 Giant Platelets Not Reportable 03/21/19 06:30 Platelet Satelliting Not Reportable 03/21/19 06:30 Plt Morphology Comment Not Reportable 03/21/19 06:30 RBC Morphology Not Reportable 03/21/19 06:30 Dimorphic RBCs Not Reportable 03/21/19 06:30 Polychromasia Not Reportable 03/21/19 06:30 Hypochromasia Few 03/21/19 06:30 Poikilocytosis Few 03/21/19 06:30 Anisocytosis Few 03/21/19 06:30 Microcytosis Not Reportable 03/21/19 06:30 Macrocytosis Not Reportable 03/21/19 06:30 Spherocytes Not Reportable 03/21/19 06:30 Pappenheimer Bodies Not Reportable 03/21/19 06:30 Sickle Cells Not Reportable 03/21/19 06:30 Target Cells 1+ 03/21/19 06:30 Tear Drop Cells Not Reportable 03/21/19 06:30 Ovalocytes Few 03/21/19 06:30 Helmet Cells Not Reportable 03/21/19 06:30 Zhou-Hayden Bodies Not Reportable 03/21/19 06:30 [place] Rings Not Reportable 03/21/19 06:30 Hebert Cells Not Reportable 03/21/19 06:30 Bite Cells Not Reportable 03/21/19 06:30 Crenated Cell Not Reportable 03/21/19 06:30 Elliptocytes Not Reportable 03/21/19 06:30 Acanthocytes (Spur) Not Reportable 03/21/19 06:30 Rouleaux Not Reportable 03/21/19 06:30 Hemoglobin C Crystals Not Reportable 03/21/19 06:30 Schistocytes Not Reportable 03/21/19 06:30 Malaria parasites Not Reportable 03/21/19 06:30 Jose Juan Bodies Not Reportable 03/21/19 06:30 Hem Pathologist Commnt No 03/21/19 06:30 PT 16.3 Sec. (12.2-14.9) H 03/01/19 09:39 INR 1.35 (0.87-1.13) H 03/01/19 09:39 APTT 33.7 Sec. (24.2-36.6) 02/21/19 18:30 D-Dimer 2987.82 ng/mlDDU (0-234) H 02/22/19 05:54 POC ABG pH 7.510 (7.35-7.45) H 03/18/19 06:38 ABG pH 7.424 pH Units (7.350-7.450) 03/19/19 04:23 POC ABG pCO2 38.9 (35-45) 03/18/19 06:38 ABG pCO2 48.0 mm Hg 03/19/19 04:23 POC ABG pO2 164 (80-105) H 03/18/19 06:38 ABG pO2 78.3 mm Hg (80.0-90.0) L 03/19/19 04:23 POC ABG HCO3 31.0 (22-26 mml/L) 03/18/19 06:38 ABG HCO3 30.7 mmol/L (20.0-26.0) H 03/19/19 04:23 POC ABG Total CO2 32 (23-27mmol/L) 03/18/19 06:38 POC ABG O2 Sat 100 03/18/19 06:38 ABG O2 Saturation 97.0 % (95.0-99.0) 03/19/19 04:23 ABG O2 Content 7.9 (0.0-44) 03/19/19 04:23 POC ABG Base Excess 8 ((-2) - (+3)mmol/L) 03/18/19 06:38 ABG Base Excess 5.8 mmol/L (-2.0-3.0) H 03/19/19 04:23 ABG Hemoglobin 5.8 gm/dl (14.0-18.0) L 03/19/19 04:23 ABG Carboxyhemoglobin 2.0 % (0.0-5.0) 03/19/19 04:23 ABG Methemoglobin 0.4 % (0.0-1.5) 03/19/19 04:23 Oxyhemoglobin 94.6 % (95.0-99.0) L 03/19/19 04:23 FiO2 35 % 03/19/19 04:23 Sodium 135 mmol/L (137-145) L 05/19/19 01:00 Potassium 3.9 mmol/L (3.6-5.0) 05/19/19 01:00 Chloride 93.6 mmol/L (98-107) L 05/19/19 01:00 Carbon Dioxide 29 mmol/L (22-30) 05/19/19 01:00 Anion Gap 16 mmol/L 05/19/19 01:00 BUN 64 mg/dL (9-20) H 05/19/19 01:00 Creatinine 2.8 mg/dL (0.8-1.5) H 05/19/19 01:00 Estimated GFR 28 ml/min 05/19/19 01:00 BUN/Creatinine Ratio 23 % 05/19/19 01:00 Glucose 194 mg/dL (75-100) H 05/19/19 01:00 POC Glucose 158 (70-105) H 05/24/19 11:33 Lactic Acid 1.00 mmol/L (0.7-2.0) 02/21/19 20:58 Calcium 9.5 mg/dL (8.4-10.2) 05/19/19 01:00 Phosphorus 4.30 mg/dL (2.5-4.5) D 03/31/19 10:26 Magnesium 2.70 mg/dL (1.7-2.3) H 03/30/19 10:13 Total Bilirubin 0.20 mg/dL (0.1-1.2) 03/30/19 10:13 AST 16 units/L (5-40) 03/30/19 10:13 ALT 11 units/L (7-56) 03/30/19 10:13 Alkaline Phosphatase 185 units/L (35-129) H 03/30/19 10:13 Ammonia 28.0 umol/L (25-60) 02/21/19 20:04 Total Creatine Kinase 64 units/L (55-170) 02/22/19 03:42 CK-MB (CK-2) 3.7 ng/mL (0.0-4.0) 02/22/19 03:42 CK-MB (CK-2) Rel Index 5.7 (0-4) H 02/22/19 03:42 Troponin T 0.193 ng/mL (0.00-0.029) H* 02/22/19 03:42 Total Protein 6.9 g/dL (6.3-8.2) 03/30/19 10:13 Albumin 2.6 g/dL (3.9-5) L 03/30/19 10:13 Albumin/Globulin Ratio 0.6 % 03/30/19 10:13 Triglycerides 51 mg/dL (2-149) 02/21/19 18:30 Cholesterol 82 mg/dL (50-199) 02/21/19 18:30 LDL Cholesterol Direct 36 mg/dL (50-130) L 02/21/19 18:30 HDL Cholesterol 40 mg/dL (40-59) 02/21/19 18:30 Cholesterol/HDL Ratio 2.05 % 02/21/19 18:30 TSH 2.760 mlU/mL (0.270-4.200) 02/21/19 20:04 PTH Intact 267.6 pg/mL (15-65) H 03/02/19 05:15 Salicylates < 0.3 mg/dL (2.8-20.0) L 02/21/19 20:04 Acetaminophen < 5.0 ug/mL (10.0-30.0) L 02/21/19 20:04 Hepatitis A IgM Ab Non-reactive (NonReactive) 04/30/19 14:11 Hep Bs Antigen Non-reactive (Negative) 04/30/19 14:11 Hep B Core IgM Ab Non-reactive (NonReactive) 04/30/19 14:11 Hepatitis C Antibody Non-reactive (NonReactive) 04/30/19 14:11 Blood Type O POSITIVE 05/04/19 12:55 Antibody Screen Negative 05/04/19 12:55 Crossmatch See Detail 05/04/19 12:55 Active Medications - Current Medications Current Medications: Generic Name Dose Route Start Last Admin Trade Name Freq PRN Reason Stop Dose Admin Acetaminophen 650 mg 05/18/19 23:33 05/22/19 22:40 Tylenol PO 650 mg Q6HR PRN Administration PAIN Albuterol/Ipratropium 1 ampul 02/24/19 20:00 05/24/19 08:27 Duoneb *Not For Prn Use* IH 1 ampul TIDRT SANCHEZ Administration Lipase/Protease/Amylase 1 each 04/10/19 15:16 Pancreaze 10,500 Unit FEEDTUBE PRN PRN For Clogged Feeding Tube Epoetin Solitario 20,000 unit 03/24/19 11:17 05/22/19 12:11 Procrit IV 20,000 unit UMA PRN Administration hemodialysis Famotidine 20 mg 02/23/19 10:00 05/24/19 09:37 Pepcid PO 20 mg DAILY SANCHEZ Administration Sodium Chloride 100 mls @ 999 mls/hr 05/13/19 12:45 Nacl 0.9% IV UMA PRN Hypotension Insulin Human Regular 0 units 02/26/19 12:00 05/24/19 06:42 Humulin R SUB-Q 1 units Q6HR SANCHEZ Administration Protocol Metoprolol Tartrate 2.5 mg 02/28/19 12:06 03/15/19 05:15 Lopressor IV 2.5 mg Q4HR PRN Administration Tachycardia Risperidone 1 mg 02/25/19 13:00 05/24/19 09:37 Risperdal PO 1 mg DAILY SANCHEZ Administration Sertraline HCl 100 mg 02/25/19 13:00 05/24/19 09:37 Zoloft PO 100 mg DAILY SANCHEZ Administration Simple Syrup 15 ml 04/10/19 15:16 Simple Syrup FEEDTUBE PRN PRN Hypoglycemia Simple Syrup 30 ml 04/10/19 15:16 Simple Syrup FEEDTUBE PRN PRN Hypoglycemia Sodium Bicarbonate 325 mg 04/10/19 15:16 Sodium Bicarbonate FEEDTUBE PRN PRN For Clogged Feeding Tube Sodium Hypochlorite 1 applic 04/01/19 13:00 05/24/19 09:36 Dakin's Half Strength TP 1 applicatio BID SANCHEZ Administration Nutrition/Malnutrition Assess - Dietary Evaluation Nutrition/Malnutrition Findings: Nutrition Notes Start: 02/22/19 12:51 Freq: Status: Active Protocol: Document 05/21/19 12:03 DW (Rec: 05/21/19 12:13 DW [id number]) Co-Sign 05/21/19 12:03 Nutrition Notes Initial or Follow up Reassessment Current Diagnosis CKD (stage V CKD),Diabetes, Hypertension,Heart Failure Other Pertinent Diagnosis Sacral PU, ESRD on HD (T/Thurs /Sat), Schizophrenia,Blind in L eye,S/P trach Current Diet Nepro at 50 ml/hr w/Abhilash BID Labs/Tests POC Glu: 218 Pertinent Medications Reviewed Height 5 ft 10 in Weight 74.7 kg [place] Body Weight (kg) 75.45 BMI 23.6 Weight change and time frame Wt loss noted. Likely d/t fluid change. Subjective/Other Information Upon arrival noted tube feed was running at goal. Per nurse pt is receiving Abhilash Percent of energy/protein needs met: 100%/100% Burn Absent Trauma Absent Minimum of two criteria No #2 Nutrition Diagnosis Increased nutrient needs ( specify in comment below) Diagnosis Progress(for reassessment Continues documentation) #1 Nutrition Diagnosis Inadequate oral intake Diagnosis Progress(for reassessment Continues documentation) Is patient on ventilator? No Is Patient Ambulatory and/or Out of Bed No REE-([place]-St. Jeor-confined to bed) 1857.144 Kcal/Kg value to use for calculation 32 Approximate Energy Requirements Using 2390 kcal/Kg Calculation Used for Recommendations Kcal/kg Additional Notes PRO: 82-103g/day(1.2-1.5g/kg) Fluid: per MD Nutrition Intervention Change Diet Order: Continue TF Nutrition Support: Nepro with Carbsteady 1.8 at 50 ml/hr Flush 200 ml q4hr Kcal 2,160 Protein (gm) 97 Fluid (mL) 872 Add Supplement/Snack (indicate name/kcal Abhilash BID /protein ) Provides kCal: 190 Provides Protein (gm) 5 Goal #1 Continue to meet at least 75% of calorie and protein needs via TF Anticipated Discharge Needs: TF Follow-Up By: 05/28/19 Additional Comments F/U for TF tolereance and Abhilash
--- NOTE | 2019-05-24 14:50 | Progress Note ---
Assessment and Plan Imp: 1. Acute encephalopathy, probably metabolic or toxic 2. A/C systolic CHF 3. Dilated CMP 4. Pulm HTN 5. ESRD Rec: Continue with trach capping. Subjective Date of service: 05/24/19 Principal diagnosis: Respiratory failure, acute on chronic systolic HF, ESRD Interval history: Patient remained agitated. Trach remains capped, seems to be tolerating reasonably well. Objective Vital Signs - 12hr 05/24/19 05/24/19 05/24/19 05:44 08:29 12:26 Temperature 98.0 F Pulse Rate 128 H Pulse Rate [ 70 Anterior Bilateral Throughout] Respiratory 16 Rate Respiratory 18 Rate [Anterior Bilateral Throughout] Blood Pressure 120/61 O2 Sat by Pulse 100 Oximetry O2 Sat by Pulse 100 Oximetry [ Assessment] 05/24/19 05/24/19 12:51 14:03 Temperature 99.1 F Pulse Rate 112 H Pulse Rate [ 78 Anterior Bilateral Throughout] Respiratory 20 Rate Respiratory 18 Rate [Anterior Bilateral Throughout] Blood Pressure 114/63 O2 Sat by Pulse 100 Oximetry O2 Sat by Pulse Oximetry [ Assessment] Constitutional: no acute distress, other (agitated) Eyes: non-icteric ENT: oropharynx moist Neck: supple, other (tracheostomy tube noted) Effort: normal Ascultation: Bilateral: diminished breath sounds, other (coarse BS bilaterally) Percussion: Bilateral: not dull Cardiovascular: regular rate and rhythm (no mrg) Gastrointestinal: normoactive bowel sounds, soft, non-tender, non-distended, other (ostomy in place, brown stool) Extremities: no cyanosis, no edema, pink and warm Neurologic: other (mild weakness LUE, o/w nonfocal) Psychiatric: other (unable to assess) CBC and BMP: 05/19/19 01:00 05/19/19 01:00 ABG, PT/INR, D-dimer: ABG POC ABG pH 7.510 (7.35-7.45) H 03/18/19 06:38 ABG pH 7.424 pH Units (7.350-7.450) 03/19/19 04:23 POC ABG pCO2 38.9 (35-45) 03/18/19 06:38 ABG pCO2 48.0 mm Hg 03/19/19 04:23 POC ABG pO2 164 (80-105) H 03/18/19 06:38 ABG pO2 78.3 mm Hg (80.0-90.0) L 03/19/19 04:23 POC ABG HCO3 31.0 (22-26 mml/L) 03/18/19 06:38 POC ABG Total CO2 32 (23-27mmol/L) 03/18/19 06:38 POC ABG O2 Sat 100 03/18/19 06:38 ABG O2 Saturation 97.0 % (95.0-99.0) 03/19/19 04:23 PT/INR, D-dimer PT 16.3 Sec. (12.2-14.9) H 03/01/19 09:39 INR 1.35 (0.87-1.13) H 03/01/19 09:39 D-Dimer 2987.82 ng/mlDDU (0-234) H 02/22/19 05:54 Abnormal lab findings: Abnormal Labs 02/21/19 02/21/19 02/21/19 18:30 18:30 18:30 WBC RBC 3.26 L Hgb 8.8 L Hct 29.0 L MCV MCH 27 L MCHC 30 L RDW 19.1 H Plt Count Lymph % (Auto) 6.1 L [place] % (Auto) Eos % (Auto) Baso % (Auto) Lymph # 0.4 L [place] # Eos # Baso # Seg Neutrophils % 86.2 H Seg Neuts % (Manual) Lymphocytes % (Manual) Eosinophils % (Manual) Seg Neutrophils # Lymphocytes # (Manual) Eosinophils # (Manual) PT INR D-Dimer POC ABG pH POC ABG pCO2 POC ABG pO2 ABG pO2 ABG HCO3 ABG Base Excess ABG Hemoglobin Oxyhemoglobin Sodium 133 L Potassium 3.3 L Chloride 93.1 L Carbon Dioxide 33 H BUN Creatinine Glucose 161 H POC Glucose Calcium Phosphorus Magnesium ALT Alkaline Phosphatase 136 H Total Creatine Kinase 37 L CK-MB (CK-2) Rel Index Troponin T 0.192 H* Albumin 2.4 L LDL Cholesterol Direct 36 L PTH Intact Salicylates Acetaminophen Crossmatch 02/21/19 02/21/19 02/21/19 18:42 20:04 20:04 WBC RBC Hgb Hct MCV MCH MCHC RDW Plt Count Lymph % (Auto) [place] % (Auto) Eos % (Auto) Baso % (Auto) Lymph # [place] # Eos # Baso # Seg Neutrophils % Seg Neuts % (Manual) Lymphocytes % (Manual) Eosinophils % (Manual) Seg Neutrophils # Lymphocytes # (Manual) Eosinophils # (Manual) PT INR D-Dimer POC ABG pH POC ABG pCO2 56.7 H POC ABG pO2 291 H ABG pO2 ABG HCO3 ABG Base Excess ABG Hemoglobin Oxyhemoglobin Sodium Potassium Chloride Carbon Dioxide BUN Creatinine Glucose POC Glucose Calcium Phosphorus Magnesium ALT Alkaline Phosphatase Total Creatine Kinase CK-MB (CK-2) Rel Index Troponin T Albumin LDL Cholesterol Direct PTH Intact Salicylates < 0.3 L Acetaminophen < 5.0 L Crossmatch 02/21/19 02/22/19 02/22/19 22:35 03:42 03:42 WBC RBC 3.20 L Hgb 8.8 L Hct 27.6 L MCV MCH MCHC RDW 18.9 H Plt Count Lymph % (Auto) 7.4 L [place] % (Auto) Eos % (Auto) Baso % (Auto) Lymph # 0.7 L [place] # Eos # Baso # Seg Neutrophils % 84.7 H Seg Neuts % (Manual) Lymphocytes % (Manual) Eosinophils % (Manual) Seg Neutrophils # Lymphocytes # (Manual) Eosinophils # (Manual) PT INR D-Dimer POC ABG pH POC ABG pCO2 POC ABG pO2 ABG pO2 ABG HCO3 ABG Base Excess ABG Hemoglobin Oxyhemoglobin Sodium 134 L Potassium 2.6 L* D Chloride Carbon Dioxide BUN Creatinine Glucose POC Glucose Calcium Phosphorus Magnesium ALT Alkaline Phosphatase Total Creatine Kinase CK-MB (CK-2) Rel Index 5.2 H Troponin T 0.202 H* Albumin LDL Cholesterol Direct PTH Intact Salicylates Acetaminophen Crossmatch 02/22/19 02/22/19 02/22/19 03:42 05:54 09:04 WBC RBC Hgb Hct MCV MCH MCHC RDW Plt Count Lymph % (Auto) [place] % (Auto) Eos % (Auto) Baso % (Auto) Lymph # [place] # Eos # Baso # Seg Neutrophils % Seg Neuts % (Manual) Lymphocytes % (Manual) Eosinophils % (Manual) Seg Neutrophils # Lymphocytes # (Manual) Eosinophils # (Manual) PT INR D-Dimer 2987.82 H POC ABG pH 7.451 H POC ABG pCO2 POC ABG pO2 ABG pO2 ABG HCO3 ABG Base Excess ABG Hemoglobin Oxyhemoglobin Sodium Potassium Chloride Carbon Dioxide BUN Creatinine Glucose POC Glucose Calcium Phosphorus Magnesium ALT Alkaline Phosphatase Total Creatine Kinase CK-MB (CK-2) Rel Index 5.7 H Troponin T 0.193 H* Albumin LDL Cholesterol Direct PTH Intact Salicylates Acetaminophen Crossmatch 02/22/19 02/22/19 02/23/19 10:36 23:56 00:52 WBC RBC Hgb Hct MCV MCH MCHC RDW Plt Count Lymph % (Auto) [place] % (Auto) Eos % (Auto) Baso % (Auto) Lymph # [place] # Eos # Baso # Seg Neutrophils % Seg Neuts % (Manual) Lymphocytes % (Manual) Eosinophils % (Manual) Seg Neutrophils # Lymphocytes # (Manual) Eosinophils # (Manual) PT INR D-Dimer POC ABG pH POC ABG pCO2 POC ABG pO2 ABG pO2 ABG HCO3 ABG Base Excess ABG Hemoglobin Oxyhemoglobin Sodium Potassium 3.1 L Chloride Carbon Dioxide BUN Creatinine Glucose POC Glucose 58 L 111 H Calcium Phosphorus Magnesium ALT Alkaline Phosphatase Total Creatine Kinase CK-MB (CK-2) Rel Index Troponin T Albumin LDL Cholesterol Direct PTH Intact Salicylates Acetaminophen Crossmatch 02/23/19 02/23/19 02/23/19 05:00 06:35 14:26 WBC RBC Hgb Hct MCV MCH MCHC RDW Plt Count Lymph % (Auto) [place] % (Auto) Eos % (Auto) Baso % (Auto) Lymph # [place] # Eos # Baso # Seg Neutrophils % Seg Neuts % (Manual) Lymphocytes % (Manual) Eosinophils % (Manual) Seg Neutrophils # Lymphocytes # (Manual) Eosinophils # (Manual) PT INR D-Dimer POC ABG pH POC ABG pCO2 POC ABG pO2 ABG pO2 ABG HCO3 ABG Base Excess ABG Hemoglobin Oxyhemoglobin Sodium 135 L Potassium 3.1 L Chloride Carbon Dioxide BUN 21 H Creatinine 2.0 H Glucose 57 L POC Glucose 64 L 62 L Calcium Phosphorus Magnesium ALT Alkaline Phosphatase Total Creatine Kinase CK-MB (CK-2) Rel Index Troponin T Albumin LDL Cholesterol Direct PTH Intact Salicylates Acetaminophen Crossmatch 02/24/19 02/24/19 02/24/19 02:11 04:12 04:55 WBC RBC 2.84 L Hgb 7.8 L Hct 24.5 L MCV MCH MCHC RDW 19.5 H Plt Count Lymph % (Auto) [place] % (Auto) Eos % (Auto) Baso % (Auto) Lymph # [place] # Eos # Baso # Seg Neutrophils % Seg Neuts % (Manual) Lymphocytes % (Manual) Eosinophils % (Manual) Seg Neutrophils # Lymphocytes # (Manual) Eosinophils # (Manual) PT INR D-Dimer POC ABG pH 7.511 H POC ABG pCO2 33.9 L POC ABG pO2 62 L ABG pO2 ABG HCO3 ABG Base Excess ABG Hemoglobin Oxyhemoglobin Sodium Potassium Chloride Carbon Dioxide BUN Creatinine Glucose POC Glucose 69 L Calcium Phosphorus Magnesium ALT Alkaline Phosphatase Total Creatine Kinase CK-MB (CK-2) Rel Index Troponin T Albumin LDL Cholesterol Direct PTH Intact Salicylates Acetaminophen Crossmatch 02/24/19 02/24/19 02/25/19 04:55 05:41 04:45 WBC RBC Hgb Hct MCV MCH MCHC RDW Plt Count Lymph % (Auto) [place] % (Auto) Eos % (Auto) Baso % (Auto) Lymph # [place] # Eos # Baso # Seg Neutrophils % Seg Neuts % (Manual) Lymphocytes % (Manual) Eosinophils % (Manual) Seg Neutrophils # Lymphocytes # (Manual) Eosinophils # (Manual) PT INR D-Dimer POC ABG pH 7.466 H POC ABG pCO2 POC ABG pO2 75 L ABG pO2 ABG HCO3 ABG Base Excess ABG Hemoglobin Oxyhemoglobin Sodium Potassium Chloride Carbon Dioxide BUN Creatinine 1.8 H Glucose 73 L POC Glucose 127 H Calcium Phosphorus Magnesium ALT Alkaline Phosphatase Total Creatine Kinase CK-MB (CK-2) Rel Index Troponin T Albumin LDL Cholesterol Direct PTH Intact Salicylates Acetaminophen Crossmatch 02/25/19 02/25/19 02/26/19 16:34 21:33 03:45 WBC RBC 2.96 L Hgb 8.0 L Hct 25.8 L MCV MCH 27 L MCHC 31 L RDW 20.0 H Plt Count Lymph % (Auto) [place] % (Auto) Eos % (Auto) Baso % (Auto) Lymph # [place] # Eos # Baso # Seg Neutrophils % Seg Neuts % (Manual) Lymphocytes % (Manual) Eosinophils % (Manual) Seg Neutrophils # Lymphocytes # (Manual) Eosinophils # (Manual) PT INR D-Dimer POC ABG pH POC ABG pCO2 POC ABG pO2 ABG pO2 ABG HCO3 ABG Base Excess ABG Hemoglobin Oxyhemoglobin Sodium Potassium Chloride Carbon Dioxide BUN Creatinine Glucose POC Glucose 141 H 106 H Calcium Phosphorus Magnesium ALT Alkaline Phosphatase Total Creatine Kinase CK-MB (CK-2) Rel Index Troponin T Albumin LDL Cholesterol Direct PTH Intact Salicylates Acetaminophen Crossmatch 02/26/19 02/26/19 02/26/19 03:45 04:13 07:53 WBC RBC Hgb Hct MCV MCH MCHC RDW Plt Count Lymph % (Auto) [place] % (Auto) Eos % (Auto) Baso % (Auto) Lymph # [place] # Eos # Baso # Seg Neutrophils % Seg Neuts % (Manual) Lymphocytes % (Manual) Eosinophils % (Manual) Seg Neutrophils # Lymphocytes # (Manual) Eosinophils # (Manual) PT INR D-Dimer POC ABG pH 7.470 H POC ABG pCO2 POC ABG pO2 ABG pO2 ABG HCO3 ABG Base Excess ABG Hemoglobin Oxyhemoglobin Sodium Potassium Chloride Carbon Dioxide BUN Creatinine 1.8 H Glucose POC Glucose 110 H Calcium Phosphorus Magnesium ALT Alkaline Phosphatase Total Creatine Kinase CK-MB (CK-2) Rel Index Troponin T Albumin LDL Cholesterol Direct PTH Intact Salicylates Acetaminophen Crossmatch 02/26/19 02/26/19 02/27/19 11:56 17:43 00:12 WBC RBC Hgb Hct MCV MCH MCHC RDW Plt Count Lymph % (Auto) [place] % (Auto) Eos % (Auto) Baso % (Auto) Lymph # [place] # Eos # Baso # Seg Neutrophils % Seg Neuts % (Manual) Lymphocytes % (Manual) Eosinophils % (Manual) Seg Neutrophils # Lymphocytes # (Manual) Eosinophils # (Manual) PT INR D-Dimer POC ABG pH POC ABG pCO2 POC ABG pO2 ABG pO2 ABG HCO3 ABG Base Excess ABG Hemoglobin Oxyhemoglobin Sodium Potassium Chloride Carbon Dioxide BUN Creatinine Glucose POC Glucose 112 H 127 H 127 H Calcium Phosphorus Magnesium ALT Alkaline Phosphatase Total Creatine Kinase CK-MB (CK-2) Rel Index Troponin T Albumin LDL Cholesterol Direct PTH Intact Salicylates Acetaminophen Crossmatch 02/27/19 02/27/19 02/27/19 04:35 13:15 18:02 WBC RBC Hgb Hct MCV MCH MCHC RDW Plt Count Lymph % (Auto) [place] % (Auto) Eos % (Auto) Baso % (Auto) Lymph # [place] # Eos # Baso # Seg Neutrophils % Seg Neuts % (Manual) Lymphocytes % (Manual) Eosinophils % (Manual) Seg Neutrophils # Lymphocytes # (Manual) Eosinophils # (Manual) PT INR D-Dimer POC ABG pH 7.483 H POC ABG pCO2 POC ABG pO2 61 L ABG pO2 ABG HCO3 ABG Base Excess ABG Hemoglobin Oxyhemoglobin Sodium Potassium Chloride Carbon Dioxide BUN Creatinine Glucose POC Glucose 143 H 106 H Calcium Phosphorus Magnesium ALT Alkaline Phosphatase Total Creatine Kinase CK-MB (CK-2) Rel Index Troponin T Albumin LDL Cholesterol Direct PTH Intact Salicylates Acetaminophen Crossmatch 02/28/19 02/28/19 02/28/19 05:50 11:59 17:52 WBC RBC Hgb Hct MCV MCH MCHC RDW Plt Count Lymph % (Auto) [place] % (Auto) Eos % (Auto) Baso % (Auto) Lymph # [place] # Eos # Baso # Seg Neutrophils % Seg Neuts % (Manual) Lymphocytes % (Manual) Eosinophils % (Manual) Seg Neutrophils # Lymphocytes # (Manual) Eosinophils # (Manual) PT INR D-Dimer POC ABG pH POC ABG pCO2 POC ABG pO2 ABG pO2 ABG HCO3 ABG Base Excess ABG Hemoglobin Oxyhemoglobin Sodium Potassium Chloride Carbon Dioxide BUN Creatinine Glucose POC Glucose 134 H 128 H 142 H Calcium Phosphorus Magnesium ALT Alkaline Phosphatase Total Creatine Kinase CK-MB (CK-2) Rel Index Troponin T Albumin LDL Cholesterol Direct PTH Intact Salicylates Acetaminophen Crossmatch 02/28/19 03/01/19 03/01/19 23:13 05:40 09:39 WBC RBC Hgb Hct MCV MCH MCHC RDW Plt Count Lymph % (Auto) [place] % (Auto) Eos % (Auto) Baso % (Auto) Lymph # [place] # Eos # Baso # Seg Neutrophils % Seg Neuts % (Manual) Lymphocytes % (Manual) Eosinophils % (Manual) Seg Neutrophils # Lymphocytes # (Manual) Eosinophils # (Manual) PT 16.3 H INR 1.35 H D-Dimer POC ABG pH POC ABG pCO2 POC ABG pO2 ABG pO2 ABG HCO3 ABG Base Excess ABG Hemoglobin Oxyhemoglobin Sodium Potassium Chloride Carbon Dioxide BUN Creatinine Glucose POC Glucose 112 H 111 H Calcium Phosphorus Magnesium ALT Alkaline Phosphatase Total Creatine Kinase CK-MB (CK-2) Rel Index Troponin T Albumin LDL Cholesterol Direct PTH Intact Salicylates Acetaminophen Crossmatch 03/01/19 03/01/19 03/01/19 11:56 13:54 17:59 WBC RBC Hgb Hct MCV MCH MCHC RDW Plt Count Lymph % (Auto) [place] % (Auto) Eos % (Auto) Baso % (Auto) Lymph # [place] # Eos # Baso # Seg Neutrophils % Seg Neuts % (Manual) Lymphocytes % (Manual) Eosinophils % (Manual) Seg Neutrophils # Lymphocytes # (Manual) Eosinophils # (Manual) PT INR D-Dimer POC ABG pH POC ABG pCO2 POC ABG pO2 ABG pO2 ABG HCO3 ABG Base Excess ABG Hemoglobin Oxyhemoglobin Sodium Potassium Chloride Carbon Dioxide BUN 33 H Creatinine 2.8 H D Glucose 176 H POC Glucose 199 H 147 H Calcium Phosphorus Magnesium ALT Alkaline Phosphatase Total Creatine Kinase CK-MB (CK-2) Rel Index Troponin T Albumin LDL Cholesterol Direct PTH Intact Salicylates Acetaminophen Crossmatch 03/02/19 03/02/19 03/02/19 05:15 05:15 05:15 WBC RBC 2.73 L Hgb 7.4 L Hct 23.0 L MCV MCH 27 L MCHC RDW 19.9 H Plt Count Lymph % (Auto) [place] % (Auto) 7.9 H Eos % (Auto) 7.6 H Baso % (Auto) Lymph # 1.0 L [place] # Eos # 0.5 H Baso # Seg Neutrophils % Seg Neuts % (Manual) Lymphocytes % (Manual) Eosinophils % (Manual) Seg Neutrophils # Lymphocytes # (Manual) Eosinophils # (Manual) PT INR D-Dimer POC ABG pH POC ABG pCO2 POC ABG pO2 ABG pO2 ABG HCO3 ABG Base Excess ABG Hemoglobin Oxyhemoglobin Sodium Potassium Chloride Carbon Dioxide BUN 43 H Creatinine 3.2 H Glucose POC Glucose Calcium Phosphorus 2.30 L Magnesium ALT Alkaline Phosphatase Total Creatine Kinase CK-MB (CK-2) Rel Index Troponin T Albumin LDL Cholesterol Direct PTH Intact 267.6 H Salicylates Acetaminophen Crossmatch 03/02/19 03/02/19 03/03/19 12:32 18:20 13:30 WBC RBC Hgb Hct MCV MCH MCHC RDW Plt Count Lymph % (Auto) [place] % (Auto) Eos % (Auto) Baso % (Auto) Lymph # [place] # Eos # Baso # Seg Neutrophils % Seg Neuts % (Manual) Lymphocytes % (Manual) Eosinophils % (Manual) Seg Neutrophils # Lymphocytes # (Manual) Eosinophils # (Manual) PT INR D-Dimer POC ABG pH POC ABG pCO2 POC ABG pO2 ABG pO2 ABG HCO3 ABG Base Excess ABG Hemoglobin Oxyhemoglobin Sodium Potassium Chloride 97.3 L Carbon Dioxide BUN 26 H Creatinine 2.2 H Glucose 73 L POC Glucose 111 H 156 H Calcium Phosphorus Magnesium ALT Alkaline Phosphatase Total Creatine Kinase CK-MB (CK-2) Rel Index Troponin T Albumin LDL Cholesterol Direct PTH Intact Salicylates Acetaminophen Crossmatch 03/04/19 03/04/19 03/04/19 00:02 05:37 05:40 WBC RBC 2.63 L Hgb 7.2 L Hct 22.2 L MCV MCH MCHC RDW 20.2 H Plt Count Lymph % (Auto) 10.5 L [place] % (Auto) Eos % (Auto) 4.6 H Baso % (Auto) Lymph # 0.7 L [place] # Eos # Baso # Seg Neutrophils % 76.9 H Seg Neuts % (Manual) Lymphocytes % (Manual) Eosinophils % (Manual) Seg Neutrophils # Lymphocytes # (Manual) Eosinophils # (Manual) PT INR D-Dimer POC ABG pH POC ABG pCO2 POC ABG pO2 ABG pO2 ABG HCO3 ABG Base Excess ABG Hemoglobin Oxyhemoglobin Sodium Potassium Chloride Carbon Dioxide BUN Creatinine Glucose POC Glucose 136 H 123 H Calcium Phosphorus Magnesium ALT Alkaline Phosphatase Total Creatine Kinase CK-MB (CK-2) Rel Index Troponin T Albumin LDL Cholesterol Direct PTH Intact Salicylates Acetaminophen Crossmatch 03/04/19 03/04/19 03/04/19 05:40 11:39 23:20 WBC RBC Hgb Hct MCV MCH MCHC RDW Plt Count Lymph % (Auto) [place] % (Auto) Eos % (Auto) Baso % (Auto) Lymph # [place] # Eos # Baso # Seg Neutrophils % Seg Neuts % (Manual) Lymphocytes % (Manual) Eosinophils % (Manual) Seg Neutrophils # Lymphocytes # (Manual) Eosinophils # (Manual) PT INR D-Dimer POC ABG pH POC ABG pCO2 POC ABG pO2 ABG pO2 ABG HCO3 ABG Base Excess ABG Hemoglobin Oxyhemoglobin Sodium Potassium Chloride Carbon Dioxide BUN 34 H Creatinine 2.7 H Glucose 114 H POC Glucose 175 H 151 H Calcium Phosphorus Magnesium ALT Alkaline Phosphatase Total Creatine Kinase CK-MB (CK-2) Rel Index Troponin T Albumin LDL Cholesterol Direct PTH Intact Salicylates Acetaminophen Crossmatch 03/05/19 03/05/19 03/05/19 05:37 12:08 17:11 WBC RBC Hgb Hct MCV MCH MCHC RDW Plt Count Lymph % (Auto) [place] % (Auto) Eos % (Auto) Baso % (Auto) Lymph # [place] # Eos # Baso # Seg Neutrophils % Seg Neuts % (Manual) Lymphocytes % (Manual) Eosinophils % (Manual) Seg Neutrophils # Lymphocytes # (Manual) Eosinophils # (Manual) PT INR D-Dimer POC ABG pH POC ABG pCO2 POC ABG pO2 ABG pO2 ABG HCO3 ABG Base Excess ABG Hemoglobin Oxyhemoglobin Sodium Potassium Chloride Carbon Dioxide BUN Creatinine Glucose POC Glucose 134 H 135 H 135 H Calcium Phosphorus Magnesium ALT Alkaline Phosphatase Total Creatine Kinase CK-MB (CK-2) Rel Index Troponin T Albumin LDL Cholesterol Direct PTH Intact Salicylates Acetaminophen Crossmatch 03/06/19 03/06/19 03/06/19 00:16 13:05 18:09 WBC RBC Hgb Hct MCV MCH MCHC RDW Plt Count Lymph % (Auto) [place] % (Auto) Eos % (Auto) Baso % (Auto) Lymph # [place] # Eos # Baso # Seg Neutrophils % Seg Neuts % (Manual) Lymphocytes % (Manual) Eosinophils % (Manual) Seg Neutrophils # Lymphocytes # (Manual) Eosinophils # (Manual) PT INR D-Dimer POC ABG pH POC ABG pCO2 POC ABG pO2 ABG pO2 ABG HCO3 ABG Base Excess ABG Hemoglobin Oxyhemoglobin Sodium Potassium Chloride Carbon Dioxide BUN Creatinine Glucose POC Glucose 117 H 113 H 131 H Calcium Phosphorus Magnesium ALT Alkaline Phosphatase Total Creatine Kinase CK-MB (CK-2) Rel Index Troponin T Albumin LDL Cholesterol Direct PTH Intact Salicylates Acetaminophen Crossmatch 03/07/19 03/08/19 03/08/19 05:25 05:33 16:00 WBC RBC 2.44 L Hgb 6.6 L Hct 20.8 L MCV MCH 27 L MCHC RDW 19.2 H Plt Count Lymph % (Auto) [place] % (Auto) Eos % (Auto) 8.6 H Baso % (Auto) Lymph # 0.8 L [place] # Eos # 0.5 H Baso # Seg Neutrophils % 70.7 H Seg Neuts % (Manual) Lymphocytes % (Manual) Eosinophils % (Manual) Seg Neutrophils # Lymphocytes # (Manual) Eosinophils # (Manual) PT INR D-Dimer POC ABG pH POC ABG pCO2 POC ABG pO2 ABG pO2 ABG HCO3 ABG Base Excess ABG Hemoglobin Oxyhemoglobin Sodium Potassium Chloride Carbon Dioxide BUN Creatinine Glucose POC Glucose 106 H 108 H Calcium Phosphorus Magnesium ALT Alkaline Phosphatase Total Creatine Kinase CK-MB (CK-2) Rel Index Troponin T Albumin LDL Cholesterol Direct PTH Intact Salicylates Acetaminophen Crossmatch 03/08/19 03/08/19 03/08/19 16:00 18:38 Unknown WBC RBC Hgb Hct MCV MCH MCHC RDW Plt Count Lymph % (Auto) [place] % (Auto) Eos % (Auto) Baso % (Auto) Lymph # [place] # Eos # Baso # Seg Neutrophils % Seg Neuts % (Manual) Lymphocytes % (Manual) Eosinophils % (Manual) Seg Neutrophils # Lymphocytes # (Manual) Eosinophils # (Manual) PT INR D-Dimer POC ABG pH POC ABG pCO2 POC ABG pO2 ABG pO2 ABG HCO3 ABG Base Excess ABG Hemoglobin Oxyhemoglobin Sodium Potassium 5.4 H D Chloride Carbon Dioxide BUN 47 H Creatinine 2.6 H Glucose POC Glucose 123 H Calcium Phosphorus Magnesium ALT < 5 L Alkaline Phosphatase Total Creatine Kinase CK-MB (CK-2) Rel Index Troponin T Albumin 2.2 L LDL Cholesterol Direct PTH Intact Salicylates Acetaminophen Crossmatch See Detail 03/09/19 03/09/19 03/09/19 10:48 12:28 13:53 WBC RBC 2.85 L Hgb 7.7 L Hct 24.2 L MCV MCH 27 L MCHC RDW 18.7 H Plt Count Lymph % (Auto) [place] % (Auto) Eos % (Auto) Baso % (Auto) Lymph # [place] # Eos # Baso # Seg Neutrophils % Seg Neuts % (Manual) Lymphocytes % (Manual) Eosinophils % (Manual) Seg Neutrophils # Lymphocytes # (Manual) Eosinophils # (Manual) PT INR D-Dimer POC ABG pH POC ABG pCO2 POC ABG pO2 ABG pO2 ABG HCO3 30.5 H ABG Base Excess 5.6 H ABG Hemoglobin 8.1 L Oxyhemoglobin 93.8 L Sodium Potassium Chloride Carbon Dioxide BUN Creatinine Glucose POC Glucose 114 H Calcium Phosphorus Magnesium ALT Alkaline Phosphatase Total Creatine Kinase CK-MB (CK-2) Rel Index Troponin T Albumin LDL Cholesterol Direct PTH Intact Salicylates Acetaminophen Crossmatch 03/09/19 03/09/19 03/10/19 17:58 23:53 12:01 WBC RBC Hgb Hct MCV MCH MCHC RDW Plt Count Lymph % (Auto) [place] % (Auto) Eos % (Auto) Baso % (Auto) Lymph # [place] # Eos # Baso # Seg Neutrophils % Seg Neuts % (Manual) Lymphocytes % (Manual) Eosinophils % (Manual) Seg Neutrophils # Lymphocytes # (Manual) Eosinophils # (Manual) PT INR D-Dimer POC ABG pH POC ABG pCO2 POC ABG pO2 ABG pO2 ABG HCO3 ABG Base Excess ABG Hemoglobin Oxyhemoglobin Sodium Potassium Chloride Carbon Dioxide BUN Creatinine Glucose POC Glucose 108 H 128 H 144 H Calcium Phosphorus Magnesium ALT Alkaline Phosphatase Total Creatine Kinase CK-MB (CK-2) Rel Index Troponin T Albumin LDL Cholesterol Direct PTH Intact Salicylates Acetaminophen Crossmatch 03/10/19 03/11/19 03/11/19 16:50 00:24 05:02 WBC RBC Hgb Hct MCV MCH MCHC RDW Plt Count Lymph % (Auto) [place] % (Auto) Eos % (Auto) Baso % (Auto) Lymph # [place] # Eos # Baso # Seg Neutrophils % Seg Neuts % (Manual) Lymphocytes % (Manual) Eosinophils % (Manual) Seg Neutrophils # Lymphocytes # (Manual) Eosinophils # (Manual) PT INR D-Dimer POC ABG pH POC ABG pCO2 POC ABG pO2 ABG pO2 ABG HCO3 ABG Base Excess ABG Hemoglobin Oxyhemoglobin Sodium Potassium Chloride Carbon Dioxide BUN Creatinine Glucose POC Glucose 147 H 123 H 120 H Calcium Phosphorus Magnesium ALT Alkaline Phosphatase Total Creatine Kinase CK-MB (CK-2) Rel Index Troponin T Albumin LDL Cholesterol Direct PTH Intact Salicylates Acetaminophen Crossmatch 03/11/19 03/11/19 03/11/19 11:56 12:20 18:37 WBC RBC Hgb Hct MCV MCH MCHC RDW Plt Count Lymph % (Auto) [place] % (Auto) Eos % (Auto) Baso % (Auto) Lymph # [place] # Eos # Baso # Seg Neutrophils % Seg Neuts % (Manual) Lymphocytes % (Manual) Eosinophils % (Manual) Seg Neutrophils # Lymphocytes # (Manual) Eosinophils # (Manual) PT INR D-Dimer POC ABG pH POC ABG pCO2 POC ABG pO2 ABG pO2 ABG HCO3 ABG Base Excess ABG Hemoglobin Oxyhemoglobin Sodium Potassium 5.2 H Chloride Carbon Dioxide BUN Creatinine Glucose POC Glucose 123 H 125 H Calcium Phosphorus Magnesium ALT Alkaline Phosphatase Total Creatine Kinase CK-MB (CK-2) Rel Index Troponin T Albumin LDL Cholesterol Direct PTH Intact Salicylates Acetaminophen Crossmatch 03/11/19 03/12/19 03/12/19 22:52 12:04 18:25 WBC RBC Hgb Hct MCV MCH MCHC RDW Plt Count Lymph % (Auto) [place] % (Auto) Eos % (Auto) Baso % (Auto) Lymph # [place] # Eos # Baso # Seg Neutrophils % Seg Neuts % (Manual) Lymphocytes % (Manual) Eosinophils % (Manual) Seg Neutrophils # Lymphocytes # (Manual) Eosinophils # (Manual) PT INR D-Dimer POC ABG pH POC ABG pCO2 POC ABG pO2 ABG pO2 ABG HCO3 ABG Base Excess ABG Hemoglobin Oxyhemoglobin Sodium Potassium Chloride Carbon Dioxide BUN Creatinine Glucose POC Glucose 110 H 106 H 118 H Calcium Phosphorus Magnesium ALT Alkaline Phosphatase Total Creatine Kinase CK-MB (CK-2) Rel Index Troponin T Albumin LDL Cholesterol Direct PTH Intact Salicylates Acetaminophen Crossmatch 03/12/19 03/13/19 03/13/19 23:36 04:38 04:38 WBC RBC 2.95 L Hgb 7.9 L Hct 24.9 L MCV MCH 27 L MCHC RDW 19.9 H Plt Count Lymph % (Auto) 11.1 L [place] % (Auto) 8.1 H Eos % (Auto) 4.4 H Baso % (Auto) Lymph # 0.9 L [place] # Eos # Baso # Seg Neutrophils % 75.4 H Seg Neuts % (Manual) Lymphocytes % (Manual) Eosinophils % (Manual) Seg Neutrophils # Lymphocytes # (Manual) Eosinophils # (Manual) PT INR D-Dimer POC ABG pH POC ABG pCO2 POC ABG pO2 ABG pO2 ABG HCO3 ABG Base Excess ABG Hemoglobin Oxyhemoglobin Sodium 136 L Potassium 5.1 H Chloride 93.8 L Carbon Dioxide BUN 48 H Creatinine 2.7 H Glucose 102 H POC Glucose 115 H Calcium Phosphorus Magnesium ALT < 5 L Alkaline Phosphatase 143 H Total Creatine Kinase CK-MB (CK-2) Rel Index Troponin T Albumin 2.5 L LDL Cholesterol Direct PTH Intact Salicylates Acetaminophen Crossmatch 03/13/19 03/13/19 03/13/19 05:33 13:37 18:03 WBC RBC Hgb Hct MCV MCH MCHC RDW Plt Count Lymph % (Auto) [place] % (Auto) Eos % (Auto) Baso % (Auto) Lymph # [place] # Eos # Baso # Seg Neutrophils % Seg Neuts % (Manual) Lymphocytes % (Manual) Eosinophils % (Manual) Seg Neutrophils # Lymphocytes # (Manual) Eosinophils # (Manual) PT INR D-Dimer POC ABG pH POC ABG pCO2 POC ABG pO2 ABG pO2 ABG HCO3 ABG Base Excess ABG Hemoglobin Oxyhemoglobin Sodium Potassium Chloride Carbon Dioxide BUN Creatinine Glucose POC Glucose 140 H 150 H 158 H Calcium Phosphorus Magnesium ALT Alkaline Phosphatase Total Creatine Kinase CK-MB (CK-2) Rel Index Troponin T Albumin LDL Cholesterol Direct PTH Intact Salicylates Acetaminophen Crossmatch 03/13/19 03/14/19 03/14/19 23:32 05:24 12:20 WBC RBC Hgb Hct MCV MCH MCHC RDW Plt Count Lymph % (Auto) [place] % (Auto) Eos % (Auto) Baso % (Auto) Lymph # [place] # Eos # Baso # Seg Neutrophils % Seg Neuts % (Manual) Lymphocytes % (Manual) Eosinophils % (Manual) Seg Neutrophils # Lymphocytes # (Manual) Eosinophils # (Manual) PT INR D-Dimer POC ABG pH POC ABG pCO2 POC ABG pO2 ABG pO2 ABG HCO3 ABG Base Excess ABG Hemoglobin Oxyhemoglobin Sodium Potassium Chloride Carbon Dioxide BUN Creatinine Glucose POC Glucose 162 H 146 H 127 H Calcium Phosphorus Magnesium ALT Alkaline Phosphatase Total Creatine Kinase CK-MB (CK-2) Rel Index Troponin T Albumin LDL Cholesterol Direct PTH Intact Salicylates Acetaminophen Crossmatch 03/14/19 03/14/19 03/15/19 18:05 23:57 04:38 WBC 12.8 H RBC 3.11 L Hgb 8.1 L Hct 26.5 L MCV MCH 26 L MCHC 31 L RDW 19.7 H Plt Count Lymph % (Auto) 4.4 L [place] % (Auto) 7.4 H Eos % (Auto) Baso % (Auto) Lymph # 0.6 L [place] # 0.9 H Eos # Baso # Seg Neutrophils % 87.3 H Seg Neuts % (Manual) Lymphocytes % (Manual) Eosinophils % (Manual) Seg Neutrophils # 11.2 H Lymphocytes # (Manual) Eosinophils # (Manual) PT INR D-Dimer POC ABG pH POC ABG pCO2 POC ABG pO2 ABG pO2 ABG HCO3 ABG Base Excess ABG Hemoglobin Oxyhemoglobin Sodium Potassium Chloride Carbon Dioxide BUN Creatinine Glucose POC Glucose 142 H 155 H Calcium Phosphorus Magnesium ALT Alkaline Phosphatase Total Creatine Kinase CK-MB (CK-2) Rel Index Troponin T Albumin LDL Cholesterol Direct PTH Intact Salicylates Acetaminophen Crossmatch 03/15/19 03/15/19 03/15/19 04:38 05:31 11:32 WBC RBC Hgb Hct MCV MCH MCHC RDW Plt Count Lymph % (Auto) [place] % (Auto) Eos % (Auto) Baso % (Auto) Lymph # [place] # Eos # Baso # Seg Neutrophils % Seg Neuts % (Manual) Lymphocytes % (Manual) Eosinophils % (Manual) Seg Neutrophils # Lymphocytes # (Manual) Eosinophils # (Manual) PT INR D-Dimer POC ABG pH POC ABG pCO2 POC ABG pO2 ABG pO2 ABG HCO3 ABG Base Excess ABG Hemoglobin Oxyhemoglobin Sodium 135 L Potassium Chloride 91.9 L Carbon Dioxide BUN 54 H Creatinine 2.8 H Glucose 128 H POC Glucose 160 H 109 H Calcium 11.1 H Phosphorus Magnesium ALT Alkaline Phosphatase 161 H Total Creatine Kinase CK-MB (CK-2) Rel Index Troponin T Albumin 2.3 L LDL Cholesterol Direct PTH Intact Salicylates Acetaminophen Crossmatch 03/15/19 03/15/19 03/16/19 18:15 23:41 05:40 WBC RBC Hgb Hct MCV MCH MCHC RDW Plt Count Lymph % (Auto) [place] % (Auto) Eos % (Auto) Baso % (Auto) Lymph # [place] # Eos # Baso # Seg Neutrophils % Seg Neuts % (Manual) Lymphocytes % (Manual) Eosinophils % (Manual) Seg Neutrophils # Lymphocytes # (Manual) Eosinophils # (Manual) PT INR D-Dimer POC ABG pH POC ABG pCO2 POC ABG pO2 ABG pO2 ABG HCO3 ABG Base Excess ABG Hemoglobin Oxyhemoglobin Sodium Potassium Chloride Carbon Dioxide BUN Creatinine Glucose POC Glucose 151 H 110 H 163 H Calcium Phosphorus Magnesium ALT Alkaline Phosphatase Total Creatine Kinase CK-MB (CK-2) Rel Index Troponin T Albumin LDL Cholesterol Direct PTH Intact Salicylates Acetaminophen Crossmatch 03/16/19 03/16/19 03/16/19 11:55 17:04 23:58 WBC RBC Hgb Hct MCV MCH MCHC RDW Plt Count Lymph % (Auto) [place] % (Auto) Eos % (Auto) Baso % (Auto) Lymph # [place] # Eos # Baso # Seg Neutrophils % Seg Neuts % (Manual) Lymphocytes % (Manual) Eosinophils % (Manual) Seg Neutrophils # Lymphocytes # (Manual) Eosinophils # (Manual) PT INR D-Dimer POC ABG pH POC ABG pCO2 POC ABG pO2 ABG pO2 ABG HCO3 ABG Base Excess ABG Hemoglobin Oxyhemoglobin Sodium Potassium Chloride Carbon Dioxide BUN Creatinine Glucose POC Glucose 114 H 147 H 192 H Calcium Phosphorus Magnesium ALT Alkaline Phosphatase Total Creatine Kinase CK-MB (CK-2) Rel Index Troponin T Albumin LDL Cholesterol Direct PTH Intact Salicylates Acetaminophen Crossmatch 03/17/19 03/17/19 03/17/19 05:53 11:17 17:01 WBC RBC Hgb Hct MCV MCH MCHC RDW Plt Count Lymph % (Auto) [place] % (Auto) Eos % (Auto) Baso % (Auto) Lymph # [place] # Eos # Baso # Seg Neutrophils % Seg Neuts % (Manual) Lymphocytes % (Manual) Eosinophils % (Manual) Seg Neutrophils # Lymphocytes # (Manual) Eosinophils # (Manual) PT INR D-Dimer POC ABG pH POC ABG pCO2 POC ABG pO2 ABG pO2 ABG HCO3 ABG Base Excess ABG Hemoglobin Oxyhemoglobin Sodium Potassium Chloride Carbon Dioxide BUN Creatinine Glucose POC Glucose 151 H 161 H 152 H Calcium Phosphorus Magnesium ALT Alkaline Phosphatase Total Creatine Kinase CK-MB (CK-2) Rel Index Troponin T Albumin LDL Cholesterol Direct PTH Intact Salicylates Acetaminophen Crossmatch 03/17/19 03/18/19 03/18/19 21:47 04:15 04:44 WBC RBC Hgb Hct MCV MCH MCHC RDW Plt Count Lymph % (Auto) [place] % (Auto) Eos % (Auto) Baso % (Auto) Lymph # [place] # Eos # Baso # Seg Neutrophils % Seg Neuts % (Manual) Lymphocytes % (Manual) Eosinophils % (Manual) Seg Neutrophils # Lymphocytes # (Manual) Eosinophils # (Manual) PT INR D-Dimer POC ABG pH POC ABG pCO2 POC ABG pO2 ABG pO2 102.8 H ABG HCO3 28.3 H ABG Base Excess ABG Hemoglobin 10.4 L Oxyhemoglobin 94.5 L Sodium Potassium Chloride Carbon Dioxide BUN Creatinine Glucose POC Glucose 170 H 150 H Calcium Phosphorus Magnesium ALT Alkaline Phosphatase Total Creatine Kinase CK-MB (CK-2) Rel Index Troponin T Albumin LDL Cholesterol Direct PTH Intact Salicylates Acetaminophen Crossmatch 03/18/19 03/18/19 03/18/19 06:38 12:12 17:47 WBC RBC Hgb Hct MCV MCH MCHC RDW Plt Count Lymph % (Auto) [place] % (Auto) Eos % (Auto) Baso % (Auto) Lymph # [place] # Eos # Baso # Seg Neutrophils % Seg Neuts % (Manual) Lymphocytes % (Manual) Eosinophils % (Manual) Seg Neutrophils # Lymphocytes # (Manual) Eosinophils # (Manual) PT INR D-Dimer POC ABG pH 7.510 H POC ABG pCO2 POC ABG pO2 164 H ABG pO2 ABG HCO3 ABG Base Excess ABG Hemoglobin Oxyhemoglobin Sodium Potassium Chloride Carbon Dioxide BUN Creatinine Glucose POC Glucose 145 H 149 H Calcium Phosphorus Magnesium ALT Alkaline Phosphatase Total Creatine Kinase CK-MB (CK-2) Rel Index Troponin T Albumin LDL Cholesterol Direct PTH Intact Salicylates Acetaminophen Crossmatch 03/18/19 03/19/19 03/19/19 23:25 01:11 04:23 WBC 15.6 H RBC 2.51 L Hgb 6.5 L Hct 21.6 L MCV MCH 26 L MCHC 30 L RDW 19.8 H Plt Count Lymph % (Auto) 6.0 L [place] % (Auto) Eos % (Auto) Baso % (Auto) Lymph # 0.9 L [place] # 1.0 H Eos # Baso # Seg Neutrophils % 85.5 H Seg Neuts % (Manual) Lymphocytes % (Manual) Eosinophils % (Manual) Seg Neutrophils # 13.4 H Lymphocytes # (Manual) Eosinophils # (Manual) PT INR D-Dimer POC ABG pH POC ABG pCO2 POC ABG pO2 ABG pO2 78.3 L ABG HCO3 30.7 H ABG Base Excess 5.8 H ABG Hemoglobin 5.8 L Oxyhemoglobin 94.6 L Sodium Potassium Chloride Carbon Dioxide BUN Creatinine Glucose POC Glucose 190 H Calcium Phosphorus Magnesium ALT Alkaline Phosphatase Total Creatine Kinase CK-MB (CK-2) Rel Index Troponin T Albumin LDL Cholesterol Direct PTH Intact Salicylates Acetaminophen Crossmatch 03/19/19 03/19/19 03/19/19 05:22 05:35 08:54 WBC RBC Hgb Hct MCV MCH MCHC RDW Plt Count Lymph % (Auto) [place] % (Auto) Eos % (Auto) Baso % (Auto) Lymph # [place] # Eos # Baso # Seg Neutrophils % Seg Neuts % (Manual) Lymphocytes % (Manual) Eosinophils % (Manual) Seg Neutrophils # Lymphocytes # (Manual) Eosinophils # (Manual) PT INR D-Dimer POC ABG pH POC ABG pCO2 POC ABG pO2 ABG pO2 ABG HCO3 ABG Base Excess ABG Hemoglobin Oxyhemoglobin Sodium Potassium Chloride Carbon Dioxide BUN Creatinine Glucose POC Glucose 167 H Calcium Phosphorus Magnesium ALT Alkaline Phosphatase Total Creatine Kinase CK-MB (CK-2) Rel Index Troponin T Albumin LDL Cholesterol Direct PTH Intact Salicylates Acetaminophen Crossmatch See Detail See Detail 03/19/19 03/19/19 03/19/19 12:36 17:02 23:25 WBC RBC Hgb Hct MCV MCH MCHC RDW Plt Count Lymph % (Auto) [place] % (Auto) Eos % (Auto) Baso % (Auto) Lymph # [place] # Eos # Baso # Seg Neutrophils % Seg Neuts % (Manual) Lymphocytes % (Manual) Eosinophils % (Manual) Seg Neutrophils # Lymphocytes # (Manual) Eosinophils # (Manual) PT INR D-Dimer POC ABG pH POC ABG pCO2 POC ABG pO2 ABG pO2 ABG HCO3 ABG Base Excess ABG Hemoglobin Oxyhemoglobin Sodium Potassium Chloride Carbon Dioxide BUN Creatinine Glucose POC Glucose 167 H 135 H 136 H Calcium Phosphorus Magnesium ALT Alkaline Phosphatase Total Creatine Kinase CK-MB (CK-2) Rel Index Troponin T Albumin LDL Cholesterol Direct PTH Intact Salicylates Acetaminophen Crossmatch 03/20/19 03/20/19 03/20/19 05:38 08:40 08:40 WBC RBC 2.61 L Hgb 7.1 L Hct 22.0 L MCV MCH 27 L MCHC RDW 19.6 H Plt Count Lymph % (Auto) 8.2 L [place] % (Auto) 8.3 H Eos % (Auto) 5.7 H Baso % (Auto) Lymph # 0.8 L [place] # Eos # 0.5 H Baso # Seg Neutrophils % 77.3 H Seg Neuts % (Manual) Lymphocytes % (Manual) Eosinophils % (Manual) Seg Neutrophils # Lymphocytes # (Manual) Eosinophils # (Manual) PT INR D-Dimer POC ABG pH POC ABG pCO2 POC ABG pO2 ABG pO2 ABG HCO3 ABG Base Excess ABG Hemoglobin Oxyhemoglobin Sodium Potassium Chloride 95.9 L Carbon Dioxide BUN 69 H Creatinine 2.8 H Glucose 115 H POC Glucose 134 H Calcium 10.5 H Phosphorus Magnesium ALT Alkaline Phosphatase Total Creatine Kinase CK-MB (CK-2) Rel Index Troponin T Albumin LDL Cholesterol Direct PTH Intact Salicylates Acetaminophen Crossmatch 03/20/19 03/20/19 03/20/19 12:13 18:04 23:49 WBC RBC Hgb Hct MCV MCH MCHC RDW Plt Count Lymph % (Auto) [place] % (Auto) Eos % (Auto) Baso % (Auto) Lymph # [place] # Eos # Baso # Seg Neutrophils % Seg Neuts % (Manual) Lymphocytes % (Manual) Eosinophils % (Manual) Seg Neutrophils # Lymphocytes # (Manual) Eosinophils # (Manual) PT INR D-Dimer POC ABG pH POC ABG pCO2 POC ABG pO2 ABG pO2 ABG HCO3 ABG Base Excess ABG Hemoglobin Oxyhemoglobin Sodium Potassium Chloride Carbon Dioxide BUN Creatinine Glucose POC Glucose 144 H 165 H 172 H Calcium Phosphorus Magnesium ALT Alkaline Phosphatase Total Creatine Kinase CK-MB (CK-2) Rel Index Troponin T Albumin LDL Cholesterol Direct PTH Intact Salicylates Acetaminophen Crossmatch 03/21/19 03/21/19 03/21/19 05:00 06:29 06:30 WBC RBC 2.72 L Hgb 7.4 L Hct 22.9 L MCV MCH 27 L MCHC RDW 19.4 H Plt Count Lymph % (Auto) [place] % (Auto) Eos % (Auto) Baso % (Auto) Lymph # [place] # Eos # Baso # Seg Neutrophils % Seg Neuts % (Manual) 81.0 H Lymphocytes % (Manual) 8.0 L Eosinophils % (Manual) 8.0 H Seg Neutrophils # Lymphocytes # (Manual) 0.7 L Eosinophils # (Manual) 0.7 H PT INR D-Dimer POC ABG pH POC ABG pCO2 POC ABG pO2 ABG pO2 ABG HCO3 ABG Base Excess ABG Hemoglobin Oxyhemoglobin Sodium Potassium Chloride Carbon Dioxide 33 H BUN 43 H Creatinine 1.7 H Glucose 145 H POC Glucose 156 H Calcium Phosphorus Magnesium ALT Alkaline Phosphatase 212 H Total Creatine Kinase CK-MB (CK-2) Rel Index Troponin T Albumin 2.2 L LDL Cholesterol Direct PTH Intact Salicylates Acetaminophen Crossmatch 03/21/19 03/21/19 03/22/19 12:02 18:07 00:21 WBC RBC Hgb Hct MCV MCH MCHC RDW Plt Count Lymph % (Auto) [place] % (Auto) Eos % (Auto) Baso % (Auto) Lymph # [place] # Eos # Baso # Seg Neutrophils % Seg Neuts % (Manual) Lymphocytes % (Manual) Eosinophils % (Manual) Seg Neutrophils # Lymphocytes # (Manual) Eosinophils # (Manual) PT INR D-Dimer POC ABG pH POC ABG pCO2 POC ABG pO2 ABG pO2 ABG HCO3 ABG Base Excess ABG Hemoglobin Oxyhemoglobin Sodium Potassium Chloride Carbon Dioxide BUN Creatinine Glucose POC Glucose 163 H 144 H 153 H Calcium Phosphorus Magnesium ALT Alkaline Phosphatase Total Creatine Kinase CK-MB (CK-2) Rel Index Troponin T Albumin LDL Cholesterol Direct PTH Intact Salicylates Acetaminophen Crossmatch 03/22/19 03/22/19 03/22/19 05:23 05:23 05:31 WBC RBC 2.58 L Hgb 7.1 L Hct 21.8 L MCV MCH 27 L MCHC RDW 19.2 H Plt Count Lymph % (Auto) [place] % (Auto) Eos % (Auto) Baso % (Auto) Lymph # [place] # Eos # Baso # Seg Neutrophils % Seg Neuts % (Manual) Lymphocytes % (Manual) Eosinophils % (Manual) Seg Neutrophils # Lymphocytes # (Manual) Eosinophils # (Manual) PT INR D-Dimer POC ABG pH POC ABG pCO2 POC ABG pO2 ABG pO2 ABG HCO3 ABG Base Excess ABG Hemoglobin Oxyhemoglobin Sodium 147 H Potassium Chloride Carbon Dioxide BUN 68 H Creatinine 2.5 H Glucose POC Glucose 116 H Calcium 10.3 H Phosphorus Magnesium ALT Alkaline Phosphatase Total Creatine Kinase CK-MB (CK-2) Rel Index Troponin T Albumin LDL Cholesterol Direct PTH Intact Salicylates Acetaminophen Crossmatch 03/22/19 03/22/19 03/22/19 08:48 12:37 17:35 WBC RBC Hgb Hct MCV MCH MCHC RDW Plt Count Lymph % (Auto) [place] % (Auto) Eos % (Auto) Baso % (Auto) Lymph # [place] # Eos # Baso # Seg Neutrophils % Seg Neuts % (Manual) Lymphocytes % (Manual) Eosinophils % (Manual) Seg Neutrophils # Lymphocytes # (Manual) Eosinophils # (Manual) PT INR D-Dimer POC ABG pH POC ABG pCO2 POC ABG pO2 ABG pO2 ABG HCO3 ABG Base Excess ABG Hemoglobin Oxyhemoglobin Sodium Potassium Chloride Carbon Dioxide BUN Creatinine Glucose POC Glucose 143 H 155 H Calcium Phosphorus Magnesium ALT Alkaline Phosphatase Total Creatine Kinase CK-MB (CK-2) Rel Index Troponin T Albumin LDL Cholesterol Direct PTH Intact Salicylates Acetaminophen Crossmatch See Detail 03/23/19 03/23/19 03/23/19 00:07 04:00 04:00 WBC 11.2 H RBC 2.32 L Hgb 6.4 L Hct 19.7 L* MCV MCH MCHC RDW 19.4 H Plt Count Lymph % (Auto) [place] % (Auto) Eos % (Auto) Baso % (Auto) Lymph # [place] # Eos # Baso # Seg Neutrophils % Seg Neuts % (Manual) Lymphocytes % (Manual) Eosinophils % (Manual) Seg Neutrophils # Lymphocytes # (Manual) Eosinophils # (Manual) PT INR D-Dimer POC ABG pH POC ABG pCO2 POC ABG pO2 ABG pO2 ABG HCO3 ABG Base Excess ABG Hemoglobin Oxyhemoglobin Sodium 147 H Potassium 5.2 H Chloride Carbon Dioxide BUN 86 H Creatinine 3.2 H Glucose 128 H POC Glucose 135 H Calcium 10.3 H Phosphorus Magnesium ALT Alkaline Phosphatase Total Creatine Kinase CK-MB (CK-2) Rel Index Troponin T Albumin LDL Cholesterol Direct PTH Intact Salicylates Acetaminophen Crossmatch 03/23/19 03/23/19 03/23/19 05:21 11:36 11:36 WBC RBC Hgb 7.9 L Hct 25.0 L MCV MCH MCHC RDW Plt Count Lymph % (Auto) [place] % (Auto) Eos % (Auto) Baso % (Auto) Lymph # [place] # Eos # Baso # Seg Neutrophils % Seg Neuts % (Manual) Lymphocytes % (Manual) Eosinophils % (Manual) Seg Neutrophils # Lymphocytes # (Manual) Eosinophils # (Manual) PT INR D-Dimer POC ABG pH POC ABG pCO2 POC ABG pO2 ABG pO2 ABG HCO3 ABG Base Excess ABG Hemoglobin Oxyhemoglobin Sodium Potassium Chloride Carbon Dioxide BUN Creatinine Glucose POC Glucose 132 H 147 H Calcium Phosphorus Magnesium ALT Alkaline Phosphatase Total Creatine Kinase CK-MB (CK-2) Rel Index Troponin T Albumin LDL Cholesterol Direct PTH Intact Salicylates Acetaminophen Crossmatch 03/23/19 03/24/19 03/24/19 17:31 01:22 04:20 WBC 12.2 H RBC 3.05 L Hgb 8.3 L Hct 25.9 L MCV MCH 27 L MCHC RDW 18.7 H Plt Count Lymph % (Auto) [place] % (Auto) Eos % (Auto) Baso % (Auto) Lymph # [place] # Eos # Baso # Seg Neutrophils % Seg Neuts % (Manual) Lymphocytes % (Manual) Eosinophils % (Manual) Seg Neutrophils # Lymphocytes # (Manual) Eosinophils # (Manual) PT INR D-Dimer POC ABG pH POC ABG pCO2 POC ABG pO2 ABG pO2 ABG HCO3 ABG Base Excess ABG Hemoglobin Oxyhemoglobin Sodium Potassium Chloride Carbon Dioxide BUN Creatinine Glucose POC Glucose 182 H 113 H Calcium Phosphorus Magnesium ALT Alkaline Phosphatase Total Creatine Kinase CK-MB (CK-2) Rel Index Troponin T Albumin LDL Cholesterol Direct PTH Intact Salicylates Acetaminophen Crossmatch 03/24/19 03/24/19 03/24/19 04:20 11:59 18:14 WBC RBC Hgb Hct MCV MCH MCHC RDW Plt Count Lymph % (Auto) [place] % (Auto) Eos % (Auto) Baso % (Auto) Lymph # [place] # Eos # Baso # Seg Neutrophils % Seg Neuts % (Manual) Lymphocytes % (Manual) Eosinophils % (Manual) Seg Neutrophils # Lymphocytes # (Manual) Eosinophils # (Manual) PT INR D-Dimer POC ABG pH POC ABG pCO2 POC ABG pO2 ABG pO2 ABG HCO3 ABG Base Excess ABG Hemoglobin Oxyhemoglobin Sodium Potassium Chloride 94.8 L Carbon Dioxide 32 H BUN 53 H Creatinine 2.3 H Glucose POC Glucose 163 H 134 H Calcium Phosphorus Magnesium ALT Alkaline Phosphatase Total Creatine Kinase CK-MB (CK-2) Rel Index Troponin T Albumin LDL Cholesterol Direct PTH Intact Salicylates Acetaminophen Crossmatch 03/24/19 03/25/19 03/25/19 23:15 05:52 12:02 WBC RBC Hgb Hct MCV MCH MCHC RDW Plt Count Lymph % (Auto) [place] % (Auto) Eos % (Auto) Baso % (Auto) Lymph # [place] # Eos # Baso # Seg Neutrophils % Seg Neuts % (Manual) Lymphocytes % (Manual) Eosinophils % (Manual) Seg Neutrophils # Lymphocytes # (Manual) Eosinophils # (Manual) PT INR D-Dimer POC ABG pH POC ABG pCO2 POC ABG pO2 ABG pO2 ABG HCO3 ABG Base Excess ABG Hemoglobin Oxyhemoglobin Sodium Potassium Chloride Carbon Dioxide BUN Creatinine Glucose POC Glucose 129 H 123 H 125 H Calcium Phosphorus Magnesium ALT Alkaline Phosphatase Total Creatine Kinase CK-MB (CK-2) Rel Index Troponin T Albumin LDL Cholesterol Direct PTH Intact Salicylates Acetaminophen Crossmatch 03/25/19 03/26/19 03/26/19 17:27 00:30 05:35 WBC RBC 3.01 L Hgb 8.1 L Hct 25.7 L MCV MCH 27 L MCHC RDW 19.2 H Plt Count Lymph % (Auto) 11.4 L [place] % (Auto) Eos % (Auto) 8.0 H Baso % (Auto) Lymph # 1.0 L [place] # Eos # 0.7 H Baso # Seg Neutrophils % 73.9 H Seg Neuts % (Manual) Lymphocytes % (Manual) Eosinophils % (Manual) Seg Neutrophils # Lymphocytes # (Manual) Eosinophils # (Manual) PT INR D-Dimer POC ABG pH POC ABG pCO2 POC ABG pO2 ABG pO2 ABG HCO3 ABG Base Excess ABG Hemoglobin Oxyhemoglobin Sodium Potassium Chloride Carbon Dioxide BUN Creatinine Glucose POC Glucose 130 H 129 H Calcium Phosphorus Magnesium ALT Alkaline Phosphatase Total Creatine Kinase CK-MB (CK-2) Rel Index Troponin T Albumin LDL Cholesterol Direct PTH Intact Salicylates Acetaminophen Crossmatch 03/26/19 03/26/19 03/26/19 05:35 05:45 12:16 WBC RBC Hgb Hct MCV MCH MCHC RDW Plt Count Lymph % (Auto) [place] % (Auto) Eos % (Auto) Baso % (Auto) Lymph # [place] # Eos # Baso # Seg Neutrophils % Seg Neuts % (Manual) Lymphocytes % (Manual) Eosinophils % (Manual) Seg Neutrophils # Lymphocytes # (Manual) Eosinophils # (Manual) PT INR D-Dimer POC ABG pH POC ABG pCO2 POC ABG pO2 ABG pO2 ABG HCO3 ABG Base Excess ABG Hemoglobin Oxyhemoglobin Sodium Potassium Chloride 94.9 L Carbon Dioxide 31 H BUN 44 H Creatinine 2.0 H Glucose POC Glucose 118 H 107 H Calcium Phosphorus Magnesium ALT Alkaline Phosphatase Total Creatine Kinase CK-MB (CK-2) Rel Index Troponin T Albumin LDL Cholesterol Direct PTH Intact Salicylates Acetaminophen Crossmatch 03/26/19 03/27/19 03/27/19 17:56 00:36 05:37 WBC RBC Hgb Hct MCV MCH MCHC RDW Plt Count Lymph % (Auto) [place] % (Auto) Eos % (Auto) Baso % (Auto) Lymph # [place] # Eos # Baso # Seg Neutrophils % Seg Neuts % (Manual) Lymphocytes % (Manual) Eosinophils % (Manual) Seg Neutrophils # Lymphocytes # (Manual) Eosinophils # (Manual) PT INR D-Dimer POC ABG pH POC ABG pCO2 POC ABG pO2 ABG pO2 ABG HCO3 ABG Base Excess ABG Hemoglobin Oxyhemoglobin Sodium Potassium Chloride Carbon Dioxide BUN Creatinine Glucose POC Glucose 107 H 110 H 122 H Calcium Phosphorus Magnesium ALT Alkaline Phosphatase Total Creatine Kinase CK-MB (CK-2) Rel Index Troponin T Albumin LDL Cholesterol Direct PTH Intact Salicylates Acetaminophen Crossmatch 03/27/19 03/27/19 03/28/19 11:22 18:00 05:17 WBC RBC Hgb Hct MCV MCH MCHC RDW Plt Count Lymph % (Auto) [place] % (Auto) Eos % (Auto) Baso % (Auto) Lymph # [place] # Eos # Baso # Seg Neutrophils % Seg Neuts % (Manual) Lymphocytes % (Manual) Eosinophils % (Manual) Seg Neutrophils # Lymphocytes # (Manual) Eosinophils # (Manual) PT INR D-Dimer POC ABG pH POC ABG pCO2 POC ABG pO2 ABG pO2 ABG HCO3 ABG Base Excess ABG Hemoglobin Oxyhemoglobin Sodium Potassium Chloride Carbon Dioxide BUN Creatinine Glucose POC Glucose 120 H 111 H 107 H Calcium Phosphorus Magnesium ALT Alkaline Phosphatase Total Creatine Kinase CK-MB (CK-2) Rel Index Troponin T Albumin LDL Cholesterol Direct PTH Intact Salicylates Acetaminophen Crossmatch 03/28/19 03/28/19 03/29/19 12:27 18:08 05:47 WBC RBC Hgb Hct MCV MCH MCHC RDW Plt Count Lymph % (Auto) [place] % (Auto) Eos % (Auto) Baso % (Auto) Lymph # [place] # Eos # Baso # Seg Neutrophils % Seg Neuts % (Manual) Lymphocytes % (Manual) Eosinophils % (Manual) Seg Neutrophils # Lymphocytes # (Manual) Eosinophils # (Manual) PT INR D-Dimer POC ABG pH POC ABG pCO2 POC ABG pO2 ABG pO2 ABG HCO3 ABG Base Excess ABG Hemoglobin Oxyhemoglobin Sodium Potassium Chloride Carbon Dioxide BUN Creatinine Glucose POC Glucose 114 H 121 H 112 H Calcium Phosphorus Magnesium ALT Alkaline Phosphatase Total Creatine Kinase CK-MB (CK-2) Rel Index Troponin T Albumin LDL Cholesterol Direct PTH Intact Salicylates Acetaminophen Crossmatch 03/29/19 03/29/19 03/30/19 12:14 18:08 00:31 WBC RBC Hgb Hct MCV MCH MCHC RDW Plt Count Lymph % (Auto) [place] % (Auto) Eos % (Auto) Baso % (Auto) Lymph # [place] # Eos # Baso # Seg Neutrophils % Seg Neuts % (Manual) Lymphocytes % (Manual) Eosinophils % (Manual) Seg Neutrophils # Lymphocytes # (Manual) Eosinophils # (Manual) PT INR D-Dimer POC ABG pH POC ABG pCO2 POC ABG pO2 ABG pO2 ABG HCO3 ABG Base Excess ABG Hemoglobin Oxyhemoglobin Sodium Potassium Chloride Carbon Dioxide BUN Creatinine Glucose POC Glucose 117 H 140 H 114 H Calcium Phosphorus Magnesium ALT Alkaline Phosphatase Total Creatine Kinase CK-MB (CK-2) Rel Index Troponin T Albumin LDL Cholesterol Direct PTH Intact Salicylates Acetaminophen Crossmatch 03/30/19 03/30/19 03/30/19 10:13 10:13 23:53 WBC RBC 2.81 L Hgb 7.7 L Hct 24.3 L MCV MCH 27 L MCHC RDW 19.0 H Plt Count Lymph % (Auto) 12.2 L [place] % (Auto) Eos % (Auto) 7.9 H Baso % (Auto) Lymph # 1.0 L [place] # Eos # 0.6 H Baso # Seg Neutrophils % 72.3 H Seg Neuts % (Manual) Lymphocytes % (Manual) Eosinophils % (Manual) Seg Neutrophils # Lymphocytes # (Manual) Eosinophils # (Manual) PT INR D-Dimer POC ABG pH POC ABG pCO2 POC ABG pO2 ABG pO2 ABG HCO3 ABG Base Excess ABG Hemoglobin Oxyhemoglobin Sodium Potassium 5.1 H Chloride 96.5 L Carbon Dioxide BUN 73 H Creatinine 3.9 H D Glucose POC Glucose 114 H Calcium 10.3 H Phosphorus 6.30 H Magnesium 2.70 H ALT Alkaline Phosphatase 185 H Total Creatine Kinase CK-MB (CK-2) Rel Index Troponin T Albumin 2.6 L LDL Cholesterol Direct PTH Intact Salicylates Acetaminophen Crossmatch 03/31/19 03/31/19 03/31/19 05:45 10:26 10:26 WBC RBC 3.01 L Hgb 8.2 L Hct 26.4 L MCV MCH 27 L MCHC 31 L RDW 20.3 H Plt Count Lymph % (Auto) 13.3 L [place] % (Auto) Eos % (Auto) 7.2 H Baso % (Auto) Lymph # 1.1 L [place] # Eos # 0.6 H Baso # Seg Neutrophils % 72.1 H Seg Neuts % (Manual) Lymphocytes % (Manual) Eosinophils % (Manual) Seg Neutrophils # Lymphocytes # (Manual) Eosinophils # (Manual) PT INR D-Dimer POC ABG pH POC ABG pCO2 POC ABG pO2 ABG pO2 ABG HCO3 ABG Base Excess ABG Hemoglobin Oxyhemoglobin Sodium Potassium Chloride 96.9 L Carbon Dioxide 33 H BUN 37 H Creatinine 2.4 H Glucose POC Glucose 108 H Calcium 10.3 H Phosphorus Magnesium ALT Alkaline Phosphatase Total Creatine Kinase CK-MB (CK-2) Rel Index Troponin T Albumin LDL Cholesterol Direct PTH Intact Salicylates Acetaminophen Crossmatch 03/31/19 04/01/19 04/01/19 12:38 05:48 12:06 WBC RBC Hgb Hct MCV MCH MCHC RDW Plt Count Lymph % (Auto) [place] % (Auto) Eos % (Auto) Baso % (Auto) Lymph # [place] # Eos # Baso # Seg Neutrophils % Seg Neuts % (Manual) Lymphocytes % (Manual) Eosinophils % (Manual) Seg Neutrophils # Lymphocytes # (Manual) Eosinophils # (Manual) PT INR D-Dimer POC ABG pH POC ABG pCO2 POC ABG pO2 ABG pO2 ABG HCO3 ABG Base Excess ABG Hemoglobin Oxyhemoglobin Sodium Potassium Chloride Carbon Dioxide BUN Creatinine Glucose POC Glucose 108 H 114 H 111 H Calcium Phosphorus Magnesium ALT Alkaline Phosphatase Total Creatine Kinase CK-MB (CK-2) Rel Index Troponin T Albumin LDL Cholesterol Direct PTH Intact Salicylates Acetaminophen Crossmatch 04/01/19 04/02/19 04/04/19 18:24 00:36 23:55 WBC RBC Hgb Hct MCV MCH MCHC RDW Plt Count Lymph % (Auto) [place] % (Auto) Eos % (Auto) Baso % (Auto) Lymph # [place] # Eos # Baso # Seg Neutrophils % Seg Neuts % (Manual) Lymphocytes % (Manual) Eosinophils % (Manual) Seg Neutrophils # Lymphocytes # (Manual) Eosinophils # (Manual) PT INR D-Dimer POC ABG pH POC ABG pCO2 POC ABG pO2 ABG pO2 ABG HCO3 ABG Base Excess ABG Hemoglobin Oxyhemoglobin Sodium Potassium Chloride Carbon Dioxide BUN Creatinine Glucose POC Glucose 113 H 117 H 109 H Calcium Phosphorus Magnesium ALT Alkaline Phosphatase Total Creatine Kinase CK-MB (CK-2) Rel Index Troponin T Albumin LDL Cholesterol Direct PTH Intact Salicylates Acetaminophen Crossmatch 04/06/19 04/06/19 04/06/19 00:11 06:02 23:30 WBC RBC Hgb Hct MCV MCH MCHC RDW Plt Count Lymph % (Auto) [place] % (Auto) Eos % (Auto) Baso % (Auto) Lymph # [place] # Eos # Baso # Seg Neutrophils % Seg Neuts % (Manual) Lymphocytes % (Manual) Eosinophils % (Manual) Seg Neutrophils # Lymphocytes # (Manual) Eosinophils # (Manual) PT INR D-Dimer POC ABG pH POC ABG pCO2 POC ABG pO2 ABG pO2 ABG HCO3 ABG Base Excess ABG Hemoglobin Oxyhemoglobin Sodium Potassium Chloride Carbon Dioxide BUN Creatinine Glucose POC Glucose 116 H 112 H 112 H Calcium Phosphorus Magnesium ALT Alkaline Phosphatase Total Creatine Kinase CK-MB (CK-2) Rel Index Troponin T Albumin LDL Cholesterol Direct PTH Intact Salicylates Acetaminophen Crossmatch 04/08/19 04/08/19 04/08/19 02:23 06:19 13:01 WBC RBC Hgb Hct MCV MCH MCHC RDW Plt Count Lymph % (Auto) [place] % (Auto) Eos % (Auto) Baso % (Auto) Lymph # [place] # Eos # Baso # Seg Neutrophils % Seg Neuts % (Manual) Lymphocytes % (Manual) Eosinophils % (Manual) Seg Neutrophils # Lymphocytes # (Manual) Eosinophils # (Manual) PT INR D-Dimer POC ABG pH POC ABG pCO2 POC ABG pO2 ABG pO2 ABG HCO3 ABG Base Excess ABG Hemoglobin Oxyhemoglobin Sodium Potassium Chloride Carbon Dioxide BUN Creatinine Glucose POC Glucose 144 H 126 H 118 H Calcium Phosphorus Magnesium ALT Alkaline Phosphatase Total Creatine Kinase CK-MB (CK-2) Rel Index Troponin T Albumin LDL Cholesterol Direct PTH Intact Salicylates Acetaminophen Crossmatch 04/08/19 04/09/19 04/10/19 23:28 05:52 06:34 WBC RBC Hgb Hct MCV MCH MCHC RDW Plt Count Lymph % (Auto) [place] % (Auto) Eos % (Auto) Baso % (Auto) Lymph # [place] # Eos # Baso # Seg Neutrophils % Seg Neuts % (Manual) Lymphocytes % (Manual) Eosinophils % (Manual) Seg Neutrophils # Lymphocytes # (Manual) Eosinophils # (Manual) PT INR D-Dimer POC ABG pH POC ABG pCO2 POC ABG pO2 ABG pO2 ABG HCO3 ABG Base Excess ABG Hemoglobin Oxyhemoglobin Sodium Potassium Chloride Carbon Dioxide BUN Creatinine Glucose POC Glucose 119 H 116 H 114 H Calcium Phosphorus Magnesium ALT Alkaline Phosphatase Total Creatine Kinase CK-MB (CK-2) Rel Index Troponin T Albumin LDL Cholesterol Direct PTH Intact Salicylates Acetaminophen Crossmatch 04/10/19 04/10/19 04/11/19 12:34 18:59 00:36 WBC RBC Hgb Hct MCV MCH MCHC RDW Plt Count Lymph % (Auto) [place] % (Auto) Eos % (Auto) Baso % (Auto) Lymph # [place] # Eos # Baso # Seg Neutrophils % Seg Neuts % (Manual) Lymphocytes % (Manual) Eosinophils % (Manual) Seg Neutrophils # Lymphocytes # (Manual) Eosinophils # (Manual) PT INR D-Dimer POC ABG pH POC ABG pCO2 POC ABG pO2 ABG pO2 ABG HCO3 ABG Base Excess ABG Hemoglobin Oxyhemoglobin Sodium Potassium Chloride Carbon Dioxide BUN Creatinine Glucose POC Glucose 112 H 109 H 124 H Calcium Phosphorus Magnesium ALT Alkaline Phosphatase Total Creatine Kinase CK-MB (CK-2) Rel Index Troponin T Albumin LDL Cholesterol Direct PTH Intact Salicylates Acetaminophen Crossmatch 04/11/19 04/11/19 04/12/19 08:01 17:25 02:18 WBC RBC Hgb Hct MCV MCH MCHC RDW Plt Count Lymph % (Auto) [place] % (Auto) Eos % (Auto) Baso % (Auto) Lymph # [place] # Eos # Baso # Seg Neutrophils % Seg Neuts % (Manual) Lymphocytes % (Manual) Eosinophils % (Manual) Seg Neutrophils # Lymphocytes # (Manual) Eosinophils # (Manual) PT INR D-Dimer POC ABG pH POC ABG pCO2 POC ABG pO2 ABG pO2 ABG HCO3 ABG Base Excess ABG Hemoglobin Oxyhemoglobin Sodium Potassium Chloride Carbon Dioxide BUN Creatinine Glucose POC Glucose 118 H 106 H 125 H Calcium Phosphorus Magnesium ALT Alkaline Phosphatase Total Creatine Kinase CK-MB (CK-2) Rel Index Troponin T Albumin LDL Cholesterol Direct PTH Intact Salicylates Acetaminophen Crossmatch 04/12/19 04/12/19 04/12/19 06:24 12:22 17:13 WBC RBC Hgb Hct MCV MCH MCHC RDW Plt Count Lymph % (Auto) [place] % (Auto) Eos % (Auto) Baso % (Auto) Lymph # [place] # Eos # Baso # Seg Neutrophils % Seg Neuts % (Manual) Lymphocytes % (Manual) Eosinophils % (Manual) Seg Neutrophils # Lymphocytes # (Manual) Eosinophils # (Manual) PT INR D-Dimer POC ABG pH POC ABG pCO2 POC ABG pO2 ABG pO2 ABG HCO3 ABG Base Excess ABG Hemoglobin Oxyhemoglobin Sodium Potassium Chloride Carbon Dioxide BUN Creatinine Glucose POC Glucose 128 H 114 H 110 H Calcium Phosphorus Magnesium ALT Alkaline Phosphatase Total Creatine Kinase CK-MB (CK-2) Rel Index Troponin T Albumin LDL Cholesterol Direct PTH Intact Salicylates Acetaminophen Crossmatch 04/13/19 04/13/19 04/13/19 06:59 07:31 07:31 WBC RBC 3.34 L Hgb 8.9 L Hct 28.6 L MCV MCH 27 L MCHC 31 L RDW 19.6 H Plt Count Lymph % (Auto) [place] % (Auto) Eos % (Auto) Baso % (Auto) Lymph # [place] # Eos # Baso # Seg Neutrophils % Seg Neuts % (Manual) Lymphocytes % (Manual) Eosinophils % (Manual) Seg Neutrophils # Lymphocytes # (Manual) Eosinophils # (Manual) PT INR D-Dimer POC ABG pH POC ABG pCO2 POC ABG pO2 ABG pO2 ABG HCO3 ABG Base Excess ABG Hemoglobin Oxyhemoglobin Sodium Potassium Chloride 96.4 L Carbon Dioxide 33 H BUN 66 H Creatinine 4.5 H Glucose 103 H POC Glucose 107 H Calcium Phosphorus Magnesium ALT Alkaline Phosphatase Total Creatine Kinase CK-MB (CK-2) Rel Index Troponin T Albumin LDL Cholesterol Direct PTH Intact Salicylates Acetaminophen Crossmatch 04/13/19 04/14/19 04/14/19 23:43 05:50 13:07 WBC RBC Hgb Hct MCV MCH MCHC RDW Plt Count Lymph % (Auto) [place] % (Auto) Eos % (Auto) Baso % (Auto) Lymph # [place] # Eos # Baso # Seg Neutrophils % Seg Neuts % (Manual) Lymphocytes % (Manual) Eosinophils % (Manual) Seg Neutrophils # Lymphocytes # (Manual) Eosinophils # (Manual) PT INR D-Dimer POC ABG pH POC ABG pCO2 POC ABG pO2 ABG pO2 ABG HCO3 ABG Base Excess ABG Hemoglobin Oxyhemoglobin Sodium Potassium Chloride Carbon Dioxide BUN Creatinine Glucose POC Glucose 119 H 112 H 112 H Calcium Phosphorus Magnesium ALT Alkaline Phosphatase Total Creatine Kinase CK-MB (CK-2) Rel Index Troponin T Albumin LDL Cholesterol Direct PTH Intact Salicylates Acetaminophen Crossmatch 04/14/19 04/15/19 04/15/19 18:35 01:18 05:17 WBC RBC Hgb Hct MCV MCH MCHC RDW Plt Count Lymph % (Auto) [place] % (Auto) Eos % (Auto) Baso % (Auto) Lymph # [place] # Eos # Baso # Seg Neutrophils % Seg Neuts % (Manual) Lymphocytes % (Manual) Eosinophils % (Manual) Seg Neutrophils # Lymphocytes # (Manual) Eosinophils # (Manual) PT INR D-Dimer POC ABG pH POC ABG pCO2 POC ABG pO2 ABG pO2 ABG HCO3 ABG Base Excess ABG Hemoglobin Oxyhemoglobin Sodium Potassium Chloride Carbon Dioxide BUN Creatinine Glucose POC Glucose 114 H 114 H 114 H Calcium Phosphorus Magnesium ALT Alkaline Phosphatase Total Creatine Kinase CK-MB (CK-2) Rel Index Troponin T Albumin LDL Cholesterol Direct PTH Intact Salicylates Acetaminophen Crossmatch 04/15/19 04/15/19 04/16/19 11:50 23:39 05:41 WBC RBC Hgb Hct MCV MCH MCHC RDW Plt Count Lymph % (Auto) [place] % (Auto) Eos % (Auto) Baso % (Auto) Lymph # [place] # Eos # Baso # Seg Neutrophils % Seg Neuts % (Manual) Lymphocytes % (Manual) Eosinophils % (Manual) Seg Neutrophils # Lymphocytes # (Manual) Eosinophils # (Manual) PT INR D-Dimer POC ABG pH POC ABG pCO2 POC ABG pO2 ABG pO2 ABG HCO3 ABG Base Excess ABG Hemoglobin Oxyhemoglobin Sodium Potassium Chloride Carbon Dioxide BUN Creatinine Glucose POC Glucose 109 H 115 H 125 H Calcium Phosphorus Magnesium ALT Alkaline Phosphatase Total Creatine Kinase CK-MB (CK-2) Rel Index Troponin T Albumin LDL Cholesterol Direct PTH Intact Salicylates Acetaminophen Crossmatch 04/16/19 04/17/19 04/17/19 12:53 01:00 12:38 WBC RBC Hgb Hct MCV MCH MCHC RDW Plt Count Lymph % (Auto) [place] % (Auto) Eos % (Auto) Baso % (Auto) Lymph # [place] # Eos # Baso # Seg Neutrophils % Seg Neuts % (Manual) Lymphocytes % (Manual) Eosinophils % (Manual) Seg Neutrophils # Lymphocytes # (Manual) Eosinophils # (Manual) PT INR D-Dimer POC ABG pH POC ABG pCO2 POC ABG pO2 ABG pO2 ABG HCO3 ABG Base Excess ABG Hemoglobin Oxyhemoglobin Sodium Potassium Chloride Carbon Dioxide BUN Creatinine Glucose POC Glucose 121 H 127 H 159 H Calcium Phosphorus Magnesium ALT Alkaline Phosphatase Total Creatine Kinase CK-MB (CK-2) Rel Index Troponin T Albumin LDL Cholesterol Direct PTH Intact Salicylates Acetaminophen Crossmatch 04/17/19 04/17/19 04/18/19 18:27 23:36 07:19 WBC RBC 3.49 L Hgb 9.0 L Hct 29.9 L MCV MCH 26 L MCHC 30 L RDW 20.0 H Plt Count Lymph % (Auto) [place] % (Auto) Eos % (Auto) Baso % (Auto) Lymph # [place] # Eos # Baso # Seg Neutrophils % Seg Neuts % (Manual) Lymphocytes % (Manual) Eosinophils % (Manual) Seg Neutrophils # Lymphocytes # (Manual) Eosinophils # (Manual) PT INR D-Dimer POC ABG pH POC ABG pCO2 POC ABG pO2 ABG pO2 ABG HCO3 ABG Base Excess ABG Hemoglobin Oxyhemoglobin Sodium Potassium Chloride Carbon Dioxide BUN Creatinine Glucose POC Glucose 109 H 134 H Calcium Phosphorus Magnesium ALT Alkaline Phosphatase Total Creatine Kinase CK-MB (CK-2) Rel Index Troponin T Albumin LDL Cholesterol Direct PTH Intact Salicylates Acetaminophen Crossmatch 04/18/19 04/18/19 04/18/19 07:19 12:16 17:09 WBC RBC Hgb Hct MCV MCH MCHC RDW Plt Count Lymph % (Auto) [place] % (Auto) Eos % (Auto) Baso % (Auto) Lymph # [place] # Eos # Baso # Seg Neutrophils % Seg Neuts % (Manual) Lymphocytes % (Manual) Eosinophils % (Manual) Seg Neutrophils # Lymphocytes # (Manual) Eosinophils # (Manual) PT INR D-Dimer POC ABG pH POC ABG pCO2 POC ABG pO2 ABG pO2 ABG HCO3 ABG Base Excess ABG Hemoglobin Oxyhemoglobin Sodium Potassium Chloride Carbon Dioxide BUN 41 H Creatinine 2.9 H Glucose 122 H POC Glucose 125 H 131 H Calcium Phosphorus Magnesium ALT Alkaline Phosphatase Total Creatine Kinase CK-MB (CK-2) Rel Index Troponin T Albumin LDL Cholesterol Direct PTH Intact Salicylates Acetaminophen Crossmatch 04/18/19 04/19/19 04/19/19 23:57 05:55 11:35 WBC RBC Hgb Hct MCV MCH MCHC RDW Plt Count Lymph % (Auto) [place] % (Auto) Eos % (Auto) Baso % (Auto) Lymph # [place] # Eos # Baso # Seg Neutrophils % Seg Neuts % (Manual) Lymphocytes % (Manual) Eosinophils % (Manual) Seg Neutrophils # Lymphocytes # (Manual) Eosinophils # (Manual) PT INR D-Dimer POC ABG pH POC ABG pCO2 POC ABG pO2 ABG pO2 ABG HCO3 ABG Base Excess ABG Hemoglobin Oxyhemoglobin Sodium Potassium Chloride Carbon Dioxide BUN Creatinine Glucose POC Glucose 159 H 144 H 177 H Calcium Phosphorus Magnesium ALT Alkaline Phosphatase Total Creatine Kinase CK-MB (CK-2) Rel Index Troponin T Albumin LDL Cholesterol Direct PTH Intact Salicylates Acetaminophen Crossmatch 04/19/19 04/20/19 04/20/19 16:36 02:05 06:28 WBC RBC Hgb Hct MCV MCH MCHC RDW Plt Count Lymph % (Auto) [place] % (Auto) Eos % (Auto) Baso % (Auto) Lymph # [place] # Eos # Baso # Seg Neutrophils % Seg Neuts % (Manual) Lymphocytes % (Manual) Eosinophils % (Manual) Seg Neutrophils # Lymphocytes # (Manual) Eosinophils # (Manual) PT INR D-Dimer POC ABG pH POC ABG pCO2 POC ABG pO2 ABG pO2 ABG HCO3 ABG Base Excess ABG Hemoglobin Oxyhemoglobin Sodium Potassium Chloride Carbon Dioxide BUN Creatinine Glucose POC Glucose 134 H 142 H 132 H Calcium Phosphorus Magnesium ALT Alkaline Phosphatase Total Creatine Kinase CK-MB (CK-2) Rel Index Troponin T Albumin LDL Cholesterol Direct PTH Intact Salicylates Acetaminophen Crossmatch 04/20/19 04/20/19 04/21/19 12:37 23:34 05:59 WBC RBC Hgb Hct MCV MCH MCHC RDW Plt Count Lymph % (Auto) [place] % (Auto) Eos % (Auto) Baso % (Auto) Lymph # [place] # Eos # Baso # Seg Neutrophils % Seg Neuts % (Manual) Lymphocytes % (Manual) Eosinophils % (Manual) Seg Neutrophils # Lymphocytes # (Manual) Eosinophils # (Manual) PT INR D-Dimer POC ABG pH POC ABG pCO2 POC ABG pO2 ABG pO2 ABG HCO3 ABG Base Excess ABG Hemoglobin Oxyhemoglobin Sodium Potassium Chloride Carbon Dioxide BUN Creatinine Glucose POC Glucose 163 H 166 H 140 H Calcium Phosphorus Magnesium ALT Alkaline Phosphatase Total Creatine Kinase CK-MB (CK-2) Rel Index Troponin T Albumin LDL Cholesterol Direct PTH Intact Salicylates Acetaminophen Crossmatch 04/21/19 04/21/19 04/21/19 12:07 17:22 23:43 WBC RBC Hgb Hct MCV MCH MCHC RDW Plt Count Lymph % (Auto) [place] % (Auto) Eos % (Auto) Baso % (Auto) Lymph # [place] # Eos # Baso # Seg Neutrophils % Seg Neuts % (Manual) Lymphocytes % (Manual) Eosinophils % (Manual) Seg Neutrophils # Lymphocytes # (Manual) Eosinophils # (Manual) PT INR D-Dimer POC ABG pH POC ABG pCO2 POC ABG pO2 ABG pO2 ABG HCO3 ABG Base Excess ABG Hemoglobin Oxyhemoglobin Sodium Potassium Chloride Carbon Dioxide BUN Creatinine Glucose POC Glucose 135 H 141 H 138 H Calcium Phosphorus Magnesium ALT Alkaline Phosphatase Total Creatine Kinase CK-MB (CK-2) Rel Index Troponin T Albumin LDL Cholesterol Direct PTH Intact Salicylates Acetaminophen Crossmatch 04/22/19 04/22/19 04/22/19 05:12 18:24 23:49 WBC RBC Hgb Hct MCV MCH MCHC RDW Plt Count Lymph % (Auto) [place] % (Auto) Eos % (Auto) Baso % (Auto) Lymph # [place] # Eos # Baso # Seg Neutrophils % Seg Neuts % (Manual) Lymphocytes % (Manual) Eosinophils % (Manual) Seg Neutrophils # Lymphocytes # (Manual) Eosinophils # (Manual) PT INR D-Dimer POC ABG pH POC ABG pCO2 POC ABG pO2 ABG pO2 ABG HCO3 ABG Base Excess ABG Hemoglobin Oxyhemoglobin Sodium Potassium Chloride Carbon Dioxide BUN Creatinine Glucose POC Glucose 141 H 137 H 142 H Calcium Phosphorus Magnesium ALT Alkaline Phosphatase Total Creatine Kinase CK-MB (CK-2) Rel Index Troponin T Albumin LDL Cholesterol Direct PTH Intact Salicylates Acetaminophen Crossmatch 04/23/19 04/23/19 04/23/19 05:53 08:13 11:58 WBC RBC Hgb Hct MCV MCH MCHC RDW Plt Count Lymph % (Auto) [place] % (Auto) Eos % (Auto) Baso % (Auto) Lymph # [place] # Eos # Baso # Seg Neutrophils % Seg Neuts % (Manual) Lymphocytes % (Manual) Eosinophils % (Manual) Seg Neutrophils # Lymphocytes # (Manual) Eosinophils # (Manual) PT INR D-Dimer POC ABG pH POC ABG pCO2 POC ABG pO2 ABG pO2 ABG HCO3 ABG Base Excess ABG Hemoglobin Oxyhemoglobin Sodium Potassium Chloride Carbon Dioxide BUN Creatinine Glucose POC Glucose 132 H 154 H 165 H Calcium Phosphorus Magnesium ALT Alkaline Phosphatase Total Creatine Kinase CK-MB (CK-2) Rel Index Troponin T Albumin LDL Cholesterol Direct PTH Intact Salicylates Acetaminophen Crossmatch 04/23/19 04/24/19 04/24/19 16:28 00:28 07:00 WBC RBC Hgb Hct MCV MCH MCHC RDW Plt Count Lymph % (Auto) [place] % (Auto) Eos % (Auto) Baso % (Auto) Lymph # [place] # Eos # Baso # Seg Neutrophils % Seg Neuts % (Manual) Lymphocytes % (Manual) Eosinophils % (Manual) Seg Neutrophils # Lymphocytes # (Manual) Eosinophils # (Manual) PT INR D-Dimer POC ABG pH POC ABG pCO2 POC ABG pO2 ABG pO2 ABG HCO3 ABG Base Excess ABG Hemoglobin Oxyhemoglobin Sodium Potassium Chloride Carbon Dioxide BUN Creatinine Glucose POC Glucose 136 H 140 H 141 H Calcium Phosphorus Magnesium ALT Alkaline Phosphatase Total Creatine Kinase CK-MB (CK-2) Rel Index Troponin T Albumin LDL Cholesterol Direct PTH Intact Salicylates Acetaminophen Crossmatch 04/24/19 04/24/19 04/25/19 12:38 18:57 00:38 WBC RBC Hgb Hct MCV MCH MCHC RDW Plt Count Lymph % (Auto) [place] % (Auto) Eos % (Auto) Baso % (Auto) Lymph # [place] # Eos # Baso # Seg Neutrophils % Seg Neuts % (Manual) Lymphocytes % (Manual) Eosinophils % (Manual) Seg Neutrophils # Lymphocytes # (Manual) Eosinophils # (Manual) PT INR D-Dimer POC ABG pH POC ABG pCO2 POC ABG pO2 ABG pO2 ABG HCO3 ABG Base Excess ABG Hemoglobin Oxyhemoglobin Sodium Potassium Chloride Carbon Dioxide BUN Creatinine Glucose POC Glucose 152 H 166 H 128 H Calcium Phosphorus Magnesium ALT Alkaline Phosphatase Total Creatine Kinase CK-MB (CK-2) Rel Index Troponin T Albumin LDL Cholesterol Direct PTH Intact Salicylates Acetaminophen Crossmatch 04/25/19 04/25/19 04/25/19 05:44 13:43 18:34 WBC RBC Hgb Hct MCV MCH MCHC RDW Plt Count Lymph % (Auto) [place] % (Auto) Eos % (Auto) Baso % (Auto) Lymph # [place] # Eos # Baso # Seg Neutrophils % Seg Neuts % (Manual) Lymphocytes % (Manual) Eosinophils % (Manual) Seg Neutrophils # Lymphocytes # (Manual) Eosinophils # (Manual) PT INR D-Dimer POC ABG pH POC ABG pCO2 POC ABG pO2 ABG pO2 ABG HCO3 ABG Base Excess ABG Hemoglobin Oxyhemoglobin Sodium Potassium Chloride Carbon Dioxide BUN Creatinine Glucose POC Glucose 153 H 186 H 124 H Calcium Phosphorus Magnesium ALT Alkaline Phosphatase Total Creatine Kinase CK-MB (CK-2) Rel Index Troponin T Albumin LDL Cholesterol Direct PTH Intact Salicylates Acetaminophen Crossmatch 04/26/19 04/26/19 04/26/19 00:59 05:52 10:12 WBC 11.5 H RBC 2.84 L Hgb 7.4 L Hct 23.3 L MCV 82 L MCH 26 L MCHC RDW 20.3 H Plt Count Lymph % (Auto) 7.5 L [place] % (Auto) 7.5 H Eos % (Auto) 5.3 H Baso % (Auto) Lymph # 0.9 L [place] # 0.9 H Eos # 0.6 H Baso # Seg Neutrophils % 79.2 H Seg Neuts % (Manual) Lymphocytes % (Manual) Eosinophils % (Manual) Seg Neutrophils # 9.1 H Lymphocytes # (Manual) Eosinophils # (Manual) PT INR D-Dimer POC ABG pH POC ABG pCO2 POC ABG pO2 ABG pO2 ABG HCO3 ABG Base Excess ABG Hemoglobin Oxyhemoglobin Sodium Potassium Chloride Carbon Dioxide BUN Creatinine Glucose POC Glucose 163 H 146 H Calcium Phosphorus Magnesium ALT Alkaline Phosphatase Total Creatine Kinase CK-MB (CK-2) Rel Index Troponin T Albumin LDL Cholesterol Direct PTH Intact Salicylates Acetaminophen Crossmatch 04/26/19 04/26/19 04/26/19 10:12 12:15 19:00 WBC RBC Hgb Hct MCV MCH MCHC RDW Plt Count Lymph % (Auto) [place] % (Auto) Eos % (Auto) Baso % (Auto) Lymph # [place] # Eos # Baso # Seg Neutrophils % Seg Neuts % (Manual) Lymphocytes % (Manual) Eosinophils % (Manual) Seg Neutrophils # Lymphocytes # (Manual) Eosinophils # (Manual) PT INR D-Dimer POC ABG pH POC ABG pCO2 POC ABG pO2 ABG pO2 ABG HCO3 ABG Base Excess ABG Hemoglobin Oxyhemoglobin Sodium 130 L Potassium Chloride 87.4 L Carbon Dioxide BUN 93 H Creatinine 4.2 H Glucose 140 H POC Glucose 155 H 179 H Calcium Phosphorus Magnesium ALT Alkaline Phosphatase Total Creatine Kinase CK-MB (CK-2) Rel Index Troponin T Albumin LDL Cholesterol Direct PTH Intact Salicylates Acetaminophen Crossmatch 04/27/19 04/27/1919 00:23 06:34 17:13 WBC RBC Hgb Hct MCV MCH MCHC RDW Plt Count Lymph % (Auto) [place] % (Auto) Eos % (Auto) Baso % (Auto) Lymph # [place] # Eos # Baso # Seg Neutrophils % Seg Neuts % (Manual) Lymphocytes % (Manual) Eosinophils % (Manual) Seg Neutrophils # Lymphocytes # (Manual) Eosinophils # (Manual) PT INR D-Dimer POC ABG pH POC ABG pCO2 POC ABG pO2 ABG pO2 ABG HCO3 ABG Base Excess ABG Hemoglobin Oxyhemoglobin Sodium Potassium Chloride Carbon Dioxide BUN Creatinine Glucose POC Glucose 158 H 140 H 152 H Calcium Phosphorus Magnesium ALT Alkaline Phosphatase Total Creatine Kinase CK-MB (CK-2) Rel Index Troponin T Albumin LDL Cholesterol Direct PTH Intact Salicylates Acetaminophen Crossmatch 04/27/19 04/28/19 04/28/19 23:50 05:18 11:37 WBC RBC Hgb Hct MCV MCH MCHC RDW Plt Count Lymph % (Auto) [place] % (Auto) Eos % (Auto) Baso % (Auto) Lymph # [place] # Eos # Baso # Seg Neutrophils % Seg Neuts % (Manual) Lymphocytes % (Manual) Eosinophils % (Manual) Seg Neutrophils # Lymphocytes # (Manual) Eosinophils # (Manual) PT INR D-Dimer POC ABG pH POC ABG pCO2 POC ABG pO2 ABG pO2 ABG HCO3 ABG Base Excess ABG Hemoglobin Oxyhemoglobin Sodium Potassium Chloride Carbon Dioxide BUN Creatinine Glucose POC Glucose 160 H 145 H 177 H Calcium Phosphorus Magnesium ALT Alkaline Phosphatase Total Creatine Kinase CK-MB (CK-2) Rel Index Troponin T Albumin LDL Cholesterol Direct PTH Intact Salicylates Acetaminophen Crossmatch 04/28/19 04/28/19 04/29/19 18:31 23:47 05:50 WBC RBC Hgb Hct MCV MCH MCHC RDW Plt Count Lymph % (Auto) [place] % (Auto) Eos % (Auto) Baso % (Auto) Lymph # [place] # Eos # Baso # Seg Neutrophils % Seg Neuts % (Manual) Lymphocytes % (Manual) Eosinophils % (Manual) Seg Neutrophils # Lymphocytes # (Manual) Eosinophils # (Manual) PT INR D-Dimer POC ABG pH POC ABG pCO2 POC ABG pO2 ABG pO2 ABG HCO3 ABG Base Excess ABG Hemoglobin Oxyhemoglobin Sodium Potassium Chloride Carbon Dioxide BUN Creatinine Glucose POC Glucose 153 H 117 H 177 H Calcium Phosphorus Magnesium ALT Alkaline Phosphatase Total Creatine Kinase CK-MB (CK-2) Rel Index Troponin T Albumin LDL Cholesterol Direct PTH Intact Salicylates Acetaminophen Crossmatch 04/29/19 04/30/19 04/30/19 17:04 01:02 06:42 WBC RBC Hgb Hct MCV MCH MCHC RDW Plt Count Lymph % (Auto) [place] % (Auto) Eos % (Auto) Baso % (Auto) Lymph # [place] # Eos # Baso # Seg Neutrophils % Seg Neuts % (Manual) Lymphocytes % (Manual) Eosinophils % (Manual) Seg Neutrophils # Lymphocytes # (Manual) Eosinophils # (Manual) PT INR D-Dimer POC ABG pH POC ABG pCO2 POC ABG pO2 ABG pO2 ABG HCO3 ABG Base Excess ABG Hemoglobin Oxyhemoglobin Sodium Potassium Chloride Carbon Dioxide BUN Creatinine Glucose POC Glucose 205 H 143 H 145 H Calcium Phosphorus Magnesium ALT Alkaline Phosphatase Total Creatine Kinase CK-MB (CK-2) Rel Index Troponin T Albumin LDL Cholesterol Direct PTH Intact Salicylates Acetaminophen Crossmatch 04/30/19 04/30/19 04/30/19 11:31 18:12 23:38 WBC RBC Hgb Hct MCV MCH MCHC RDW Plt Count Lymph % (Auto) [place] % (Auto) Eos % (Auto) Baso % (Auto) Lymph # [place] # Eos # Baso # Seg Neutrophils % Seg Neuts % (Manual) Lymphocytes % (Manual) Eosinophils % (Manual) Seg Neutrophils # Lymphocytes # (Manual) Eosinophils # (Manual) PT INR D-Dimer POC ABG pH POC ABG pCO2 POC ABG pO2 ABG pO2 ABG HCO3 ABG Base Excess ABG Hemoglobin Oxyhemoglobin Sodium Potassium Chloride Carbon Dioxide BUN Creatinine Glucose POC Glucose 162 H 117 H 139 H Calcium Phosphorus Magnesium ALT Alkaline Phosphatase Total Creatine Kinase CK-MB (CK-2) Rel Index Troponin T Albumin LDL Cholesterol Direct PTH Intact Salicylates Acetaminophen Crossmatch 05/01/19 05/01/19 05/02/19 06:06 23:41 05:59 WBC RBC Hgb Hct MCV MCH MCHC RDW Plt Count Lymph % (Auto) [place] % (Auto) Eos % (Auto) Baso % (Auto) Lymph # [place] # Eos # Baso # Seg Neutrophils % Seg Neuts % (Manual) Lymphocytes % (Manual) Eosinophils % (Manual) Seg Neutrophils # Lymphocytes # (Manual) Eosinophils # (Manual) PT INR D-Dimer POC ABG pH POC ABG pCO2 POC ABG pO2 ABG pO2 ABG HCO3 ABG Base Excess ABG Hemoglobin Oxyhemoglobin Sodium Potassium Chloride Carbon Dioxide BUN Creatinine Glucose POC Glucose 150 H 140 H 130 H Calcium Phosphorus Magnesium ALT Alkaline Phosphatase Total Creatine Kinase CK-MB (CK-2) Rel Index Troponin T Albumin LDL Cholesterol Direct PTH Intact Salicylates Acetaminophen Crossmatch 05/02/19 05/02/19 05/03/19 11:55 18:10 00:15 WBC RBC Hgb Hct MCV MCH MCHC RDW Plt Count Lymph % (Auto) [place] % (Auto) Eos % (Auto) Baso % (Auto) Lymph # [place] # Eos # Baso # Seg Neutrophils % Seg Neuts % (Manual) Lymphocytes % (Manual) Eosinophils % (Manual) Seg Neutrophils # Lymphocytes # (Manual) Eosinophils # (Manual) PT INR D-Dimer POC ABG pH POC ABG pCO2 POC ABG pO2 ABG pO2 ABG HCO3 ABG Base Excess ABG Hemoglobin Oxyhemoglobin Sodium Potassium Chloride Carbon Dioxide BUN Creatinine Glucose POC Glucose 146 H 141 H 145 H Calcium Phosphorus Magnesium ALT Alkaline Phosphatase Total Creatine Kinase CK-MB (CK-2) Rel Index Troponin T Albumin LDL Cholesterol Direct PTH Intact Salicylates Acetaminophen Crossmatch 05/03/19 05/03/19 05/03/19 05:49 05:49 06:01 WBC RBC 2.84 L Hgb 7.2 L Hct 22.9 L MCV 81 L MCH 26 L MCHC RDW 20.6 H Plt Count 456 H Lymph % (Auto) 11.8 L [place] % (Auto) Eos % (Auto) 10.6 H Baso % (Auto) Lymph # 1.1 L [place] # Eos # 1.0 H Baso # Seg Neutrophils % 70.4 H Seg Neuts % (Manual) Lymphocytes % (Manual) Eosinophils % (Manual) Seg Neutrophils # Lymphocytes # (Manual) Eosinophils # (Manual) PT INR D-Dimer POC ABG pH POC ABG pCO2 POC ABG pO2 ABG pO2 ABG HCO3 ABG Base Excess ABG Hemoglobin Oxyhemoglobin Sodium Potassium Chloride 94.8 L Carbon Dioxide BUN 66 H Creatinine 3.6 H Glucose 129 H POC Glucose 135 H Calcium Phosphorus Magnesium ALT Alkaline Phosphatase Total Creatine Kinase CK-MB (CK-2) Rel Index Troponin T Albumin LDL Cholesterol Direct PTH Intact Salicylates Acetaminophen Crossmatch 05/03/19 05/03/19 05/04/19 11:04 18:40 00:06 WBC RBC Hgb Hct MCV MCH MCHC RDW Plt Count Lymph % (Auto) [place] % (Auto) Eos % (Auto) Baso % (Auto) Lymph # [place] # Eos # Baso # Seg Neutrophils % Seg Neuts % (Manual) Lymphocytes % (Manual) Eosinophils % (Manual) Seg Neutrophils # Lymphocytes # (Manual) Eosinophils # (Manual) PT INR D-Dimer POC ABG pH POC ABG pCO2 POC ABG pO2 ABG pO2 ABG HCO3 ABG Base Excess ABG Hemoglobin Oxyhemoglobin Sodium Potassium Chloride Carbon Dioxide BUN Creatinine Glucose POC Glucose 191 H 167 H 137 H Calcium Phosphorus Magnesium ALT Alkaline Phosphatase Total Creatine Kinase CK-MB (CK-2) Rel Index Troponin T Albumin LDL Cholesterol Direct PTH Intact Salicylates Acetaminophen Crossmatch 05/04/19 05/04/19 05/04/19 06:44 07:30 07:30 WBC 15.8 H RBC 2.74 L Hgb 6.7 L Hct 22.2 L MCV 81 L MCH 24 L MCHC 30 L RDW 20.4 H Plt Count 450 H Lymph % (Auto) 5.1 L [place] % (Auto) Eos % (Auto) Baso % (Auto) Lymph # 0.8 L [place] # Eos # 0.6 H Baso # Seg Neutrophils % 86.3 H Seg Neuts % (Manual) Lymphocytes % (Manual) Eosinophils % (Manual) Seg Neutrophils # 13.6 H Lymphocytes # (Manual) Eosinophils # (Manual) PT INR D-Dimer POC ABG pH POC ABG pCO2 POC ABG pO2 ABG pO2 ABG HCO3 ABG Base Excess ABG Hemoglobin Oxyhemoglobin Sodium Potassium Chloride 95.2 L Carbon Dioxide BUN 92 H Creatinine 4.8 H Glucose 139 H POC Glucose 153 H Calcium Phosphorus Magnesium ALT Alkaline Phosphatase Total Creatine Kinase CK-MB (CK-2) Rel Index Troponin T Albumin LDL Cholesterol Direct PTH Intact Salicylates Acetaminophen Crossmatch 05/04/19 05/04/19 05/05/19 12:55 16:31 01:02 WBC RBC Hgb Hct MCV MCH MCHC RDW Plt Count Lymph % (Auto) [place] % (Auto) Eos % (Auto) Baso % (Auto) Lymph # [place] # Eos # Baso # Seg Neutrophils % Seg Neuts % (Manual) Lymphocytes % (Manual) Eosinophils % (Manual) Seg Neutrophils # Lymphocytes # (Manual) Eosinophils # (Manual) PT INR D-Dimer POC ABG pH POC ABG pCO2 POC ABG pO2 ABG pO2 ABG HCO3 ABG Base Excess ABG Hemoglobin Oxyhemoglobin Sodium Potassium Chloride Carbon Dioxide BUN Creatinine Glucose POC Glucose 169 H 171 H Calcium Phosphorus Magnesium ALT Alkaline Phosphatase Total Creatine Kinase CK-MB (CK-2) Rel Index Troponin T Albumin LDL Cholesterol Direct PTH Intact Salicylates Acetaminophen Crossmatch See Detail 05/05/19 05/05/19 05/05/19 05:26 05:36 11:48 WBC 12.6 H RBC 2.73 L Hgb 6.9 L Hct 22.3 L MCV 82 L MCH 25 L MCHC 31 L RDW 21.0 H Plt Count Lymph % (Auto) 8.9 L [place] % (Auto) Eos % (Auto) Baso % (Auto) Lymph # 1.1 L [place] # 0.9 H Eos # Baso # Seg Neutrophils % 80.7 H Seg Neuts % (Manual) Lymphocytes % (Manual) Eosinophils % (Manual) Seg Neutrophils # 10.2 H Lymphocytes # (Manual) Eosinophils # (Manual) PT INR D-Dimer POC ABG pH POC ABG pCO2 POC ABG pO2 ABG pO2 ABG HCO3 ABG Base Excess ABG Hemoglobin Oxyhemoglobin Sodium Potassium Chloride Carbon Dioxide BUN Creatinine Glucose POC Glucose 153 H 173 H Calcium Phosphorus Magnesium ALT Alkaline Phosphatase Total Creatine Kinase CK-MB (CK-2) Rel Index Troponin T Albumin LDL Cholesterol Direct PTH Intact Salicylates Acetaminophen Crossmatch 05/05/19 05/06/19 05/06/19 16:42 02:24 06:12 WBC RBC Hgb Hct MCV MCH MCHC RDW Plt Count Lymph % (Auto) [place] % (Auto) Eos % (Auto) Baso % (Auto) Lymph # [place] # Eos # Baso # Seg Neutrophils % Seg Neuts % (Manual) Lymphocytes % (Manual) Eosinophils % (Manual) Seg Neutrophils # Lymphocytes # (Manual) Eosinophils # (Manual) PT INR D-Dimer POC ABG pH POC ABG pCO2 POC ABG pO2 ABG pO2 ABG HCO3 ABG Base Excess ABG Hemoglobin Oxyhemoglobin Sodium Potassium Chloride Carbon Dioxide BUN Creatinine Glucose POC Glucose 126 H 138 H 151 H Calcium Phosphorus Magnesium ALT Alkaline Phosphatase Total Creatine Kinase CK-MB (CK-2) Rel Index Troponin T Albumin LDL Cholesterol Direct PTH Intact Salicylates Acetaminophen Crossmatch 05/06/19 05/06/19 05/06/19 08:15 16:48 23:16 WBC 11.8 H RBC 2.72 L Hgb 6.7 L Hct 21.7 L MCV 80 L MCH 25 L MCHC 31 L RDW 20.9 H Plt Count Lymph % (Auto) [place] % (Auto) Eos % (Auto) Baso % (Auto) Lymph # [place] # Eos # Baso # Seg Neutrophils % Seg Neuts % (Manual) Lymphocytes % (Manual) Eosinophils % (Manual) Seg Neutrophils # Lymphocytes # (Manual) Eosinophils # (Manual) PT INR D-Dimer POC ABG pH POC ABG pCO2 POC ABG pO2 ABG pO2 ABG HCO3 ABG Base Excess ABG Hemoglobin Oxyhemoglobin Sodium Potassium Chloride Carbon Dioxide BUN Creatinine Glucose POC Glucose 153 H 143 H Calcium Phosphorus Magnesium ALT Alkaline Phosphatase Total Creatine Kinase CK-MB (CK-2) Rel Index Troponin T Albumin LDL Cholesterol Direct PTH Intact Salicylates Acetaminophen Crossmatch 05/07/19 05/07/19 05/07/19 06:00 06:30 12:33 WBC RBC 3.53 L Hgb 9.1 L Hct 28.6 L D MCV 81 L MCH 26 L MCHC RDW 19.1 H Plt Count Lymph % (Auto) 9.6 L [place] % (Auto) Eos % (Auto) 4.8 H Baso % (Auto) Lymph # 1.1 L [place] # Eos # 0.5 H Baso # Seg Neutrophils % 77.8 H Seg Neuts % (Manual) Lymphocytes % (Manual) Eosinophils % (Manual) Seg Neutrophils # 8.6 H Lymphocytes # (Manual) Eosinophils # (Manual) PT INR D-Dimer POC ABG pH POC ABG pCO2 POC ABG pO2 ABG pO2 ABG HCO3 ABG Base Excess ABG Hemoglobin Oxyhemoglobin Sodium Potassium Chloride Carbon Dioxide BUN Creatinine Glucose POC Glucose 122 H 140 H Calcium Phosphorus Magnesium ALT Alkaline Phosphatase Total Creatine Kinase CK-MB (CK-2) Rel Index Troponin T Albumin LDL Cholesterol Direct PTH Intact Salicylates Acetaminophen Crossmatch 05/07/19 05/07/19 05/08/19 16:41 23:55 05:10 WBC 11.6 H RBC 3.54 L Hgb 9.1 L Hct 29.1 L MCV 82 L MCH 26 L MCHC 31 L RDW 19.6 H Plt Count Lymph % (Auto) 6.6 L [place] % (Auto) Eos % (Auto) Baso % (Auto) 1.9 H Lymph # 0.8 L [place] # Eos # Baso # 0.2 H Seg Neutrophils % 82.6 H Seg Neuts % (Manual) Lymphocytes % (Manual) Eosinophils % (Manual) Seg Neutrophils # 9.6 H Lymphocytes # (Manual) Eosinophils # (Manual) PT INR D-Dimer POC ABG pH POC ABG pCO2 POC ABG pO2 ABG pO2 ABG HCO3 ABG Base Excess ABG Hemoglobin Oxyhemoglobin Sodium Potassium Chloride Carbon Dioxide BUN Creatinine Glucose POC Glucose 143 H 153 H Calcium Phosphorus Magnesium ALT Alkaline Phosphatase Total Creatine Kinase CK-MB (CK-2) Rel Index Troponin T Albumin LDL Cholesterol Direct PTH Intact Salicylates Acetaminophen Crossmatch 05/08/19 05/08/19 05/09/19 06:09 16:55 03:27 WBC RBC Hgb Hct MCV MCH MCHC RDW Plt Count Lymph % (Auto) [place] % (Auto) Eos % (Auto) Baso % (Auto) Lymph # [place] # Eos # Baso # Seg Neutrophils % Seg Neuts % (Manual) Lymphocytes % (Manual) Eosinophils % (Manual) Seg Neutrophils # Lymphocytes # (Manual) Eosinophils # (Manual) PT INR D-Dimer POC ABG pH POC ABG pCO2 POC ABG pO2 ABG pO2 ABG HCO3 ABG Base Excess ABG Hemoglobin Oxyhemoglobin Sodium Potassium Chloride Carbon Dioxide BUN Creatinine Glucose POC Glucose 204 H 196 H 175 H Calcium Phosphorus Magnesium ALT Alkaline Phosphatase Total Creatine Kinase CK-MB (CK-2) Rel Index Troponin T Albumin LDL Cholesterol Direct PTH Intact Salicylates Acetaminophen Crossmatch 05/09/19 05/09/19 05/09/19 06:00 11:00 12:41 WBC 12.0 H RBC Hgb 9.7 L Hct 30.2 L MCV 83 L MCH 26 L MCHC RDW 20.1 H Plt Count Lymph % (Auto) 7.4 L [place] % (Auto) 7.6 H Eos % (Auto) Baso % (Auto) Lymph # 0.9 L [place] # 0.9 H Eos # Baso # Seg Neutrophils % 80.7 H Seg Neuts % (Manual) Lymphocytes % (Manual) Eosinophils % (Manual) Seg Neutrophils # 9.7 H Lymphocytes # (Manual) Eosinophils # (Manual) PT INR D-Dimer POC ABG pH POC ABG pCO2 POC ABG pO2 ABG pO2 ABG HCO3 ABG Base Excess ABG Hemoglobin Oxyhemoglobin Sodium Potassium Chloride Carbon Dioxide BUN Creatinine Glucose POC Glucose 172 H 168 H Calcium Phosphorus Magnesium ALT Alkaline Phosphatase Total Creatine Kinase CK-MB (CK-2) Rel Index Troponin T Albumin LDL Cholesterol Direct PTH Intact Salicylates Acetaminophen Crossmatch 05/09/19 05/10/19 05/10/19 17:45 01:26 06:07 WBC RBC Hgb Hct MCV MCH MCHC RDW Plt Count Lymph % (Auto) [place] % (Auto) Eos % (Auto) Baso % (Auto) Lymph # [place] # Eos # Baso # Seg Neutrophils % Seg Neuts % (Manual) Lymphocytes % (Manual) Eosinophils % (Manual) Seg Neutrophils # Lymphocytes # (Manual) Eosinophils # (Manual) PT INR D-Dimer POC ABG pH POC ABG pCO2 POC ABG pO2 ABG pO2 ABG HCO3 ABG Base Excess ABG Hemoglobin Oxyhemoglobin Sodium Potassium Chloride Carbon Dioxide BUN Creatinine Glucose POC Glucose 167 H 174 H 179 H Calcium Phosphorus Magnesium ALT Alkaline Phosphatase Total Creatine Kinase CK-MB (CK-2) Rel Index Troponin T Albumin LDL Cholesterol Direct PTH Intact Salicylates Acetaminophen Crossmatch 05/10/19 05/10/19 05/10/19 06:45 12:31 17:18 WBC RBC Hgb Hct MCV MCH MCHC RDW Plt Count Lymph % (Auto) [place] % (Auto) Eos % (Auto) Baso % (Auto) Lymph # [place] # Eos # Baso # Seg Neutrophils % Seg Neuts % (Manual) Lymphocytes % (Manual) Eosinophils % (Manual) Seg Neutrophils # Lymphocytes # (Manual) Eosinophils # (Manual) PT INR D-Dimer POC ABG pH POC ABG pCO2 POC ABG pO2 ABG pO2 ABG HCO3 ABG Base Excess ABG Hemoglobin Oxyhemoglobin Sodium 134 L Potassium Chloride 90.2 L Carbon Dioxide BUN 82 H Creatinine 4.1 H Glucose 195 H POC Glucose 201 H 197 H Calcium Phosphorus Magnesium ALT Alkaline Phosphatase Total Creatine Kinase CK-MB (CK-2) Rel Index Troponin T Albumin LDL Cholesterol Direct PTH Intact Salicylates Acetaminophen Crossmatch 05/11/19 05/11/19 05/11/19 00:20 06:30 17:38 WBC RBC Hgb Hct MCV MCH MCHC RDW Plt Count Lymph % (Auto) [place] % (Auto) Eos % (Auto) Baso % (Auto) Lymph # [place] # Eos # Baso # Seg Neutrophils % Seg Neuts % (Manual) Lymphocytes % (Manual) Eosinophils % (Manual) Seg Neutrophils # Lymphocytes # (Manual) Eosinophils # (Manual) PT INR D-Dimer POC ABG pH POC ABG pCO2 POC ABG pO2 ABG pO2 ABG HCO3 ABG Base Excess ABG Hemoglobin Oxyhemoglobin Sodium Potassium Chloride Carbon Dioxide BUN Creatinine Glucose POC Glucose 131 H 148 H 198 H Calcium Phosphorus Magnesium ALT Alkaline Phosphatase Total Creatine Kinase CK-MB (CK-2) Rel Index Troponin T Albumin LDL Cholesterol Direct PTH Intact Salicylates Acetaminophen Crossmatch 05/12/19 05/12/19 05/12/19 00:44 06:13 07:15 WBC RBC 3.32 L Hgb 8.7 L Hct 27.8 L MCV MCH 26 L MCHC 31 L RDW 19.8 H Plt Count Lymph % (Auto) 6.9 L [place] % (Auto) Eos % (Auto) 6.5 H Baso % (Auto) Lymph # 0.7 L [place] # Eos # 0.6 H Baso # Seg Neutrophils % 78.6 H Seg Neuts % (Manual) Lymphocytes % (Manual) Eosinophils % (Manual) Seg Neutrophils # 7.8 H Lymphocytes # (Manual) Eosinophils # (Manual) PT INR D-Dimer POC ABG pH POC ABG pCO2 POC ABG pO2 ABG pO2 ABG HCO3 ABG Base Excess ABG Hemoglobin Oxyhemoglobin Sodium Potassium Chloride Carbon Dioxide BUN Creatinine Glucose POC Glucose 170 H 133 H Calcium Phosphorus Magnesium ALT Alkaline Phosphatase Total Creatine Kinase CK-MB (CK-2) Rel Index Troponin T Albumin LDL Cholesterol Direct PTH Intact Salicylates Acetaminophen Crossmatch 05/12/19 05/12/19 05/12/19 07:15 11:17 17:37 WBC RBC Hgb Hct MCV MCH MCHC RDW Plt Count Lymph % (Auto) [place] % (Auto) Eos % (Auto) Baso % (Auto) Lymph # [place] # Eos # Baso # Seg Neutrophils % Seg Neuts % (Manual) Lymphocytes % (Manual) Eosinophils % (Manual) Seg Neutrophils # Lymphocytes # (Manual) Eosinophils # (Manual) PT INR D-Dimer POC ABG pH POC ABG pCO2 POC ABG pO2 ABG pO2 ABG HCO3 ABG Base Excess ABG Hemoglobin Oxyhemoglobin Sodium 135 L Potassium Chloride 94.2 L Carbon Dioxide BUN 59 H Creatinine 3.4 H Glucose 134 H POC Glucose 132 H 165 H Calcium Phosphorus Magnesium ALT Alkaline Phosphatase Total Creatine Kinase CK-MB (CK-2) Rel Index Troponin T Albumin LDL Cholesterol Direct PTH Intact Salicylates Acetaminophen Crossmatch 05/13/19 05/13/19 05/13/19 00:15 05:44 16:00 WBC RBC Hgb Hct MCV MCH MCHC RDW Plt Count Lymph % (Auto) [place] % (Auto) Eos % (Auto) Baso % (Auto) Lymph # [place] # Eos # Baso # Seg Neutrophils % Seg Neuts % (Manual) Lymphocytes % (Manual) Eosinophils % (Manual) Seg Neutrophils # Lymphocytes # (Manual) Eosinophils # (Manual) PT INR D-Dimer POC ABG pH POC ABG pCO2 POC ABG pO2 ABG pO2 ABG HCO3 ABG Base Excess ABG Hemoglobin Oxyhemoglobin Sodium Potassium Chloride Carbon Dioxide BUN Creatinine Glucose POC Glucose 144 H 133 H 221 H Calcium Phosphorus Magnesium ALT Alkaline Phosphatase Total Creatine Kinase CK-MB (CK-2) Rel Index Troponin T Albumin LDL Cholesterol Direct PTH Intact Salicylates Acetaminophen Crossmatch 05/14/19 05/14/19 05/14/19 06:44 11:56 16:42 WBC RBC Hgb Hct MCV MCH MCHC RDW Plt Count Lymph % (Auto) [place] % (Auto) Eos % (Auto) Baso % (Auto) Lymph # [place] # Eos # Baso # Seg Neutrophils % Seg Neuts % (Manual) Lymphocytes % (Manual) Eosinophils % (Manual) Seg Neutrophils # Lymphocytes # (Manual) Eosinophils # (Manual) PT INR D-Dimer POC ABG pH POC ABG pCO2 POC ABG pO2 ABG pO2 ABG HCO3 ABG Base Excess ABG Hemoglobin Oxyhemoglobin Sodium Potassium Chloride Carbon Dioxide BUN Creatinine Glucose POC Glucose 187 H 141 H 183 H Calcium Phosphorus Magnesium ALT Alkaline Phosphatase Total Creatine Kinase CK-MB (CK-2) Rel Index Troponin T Albumin LDL Cholesterol Direct PTH Intact Salicylates Acetaminophen Crossmatch 05/15/19 05/15/19 05/15/19 00:11 05:55 18:46 WBC RBC Hgb Hct MCV MCH MCHC RDW Plt Count Lymph % (Auto) [place] % (Auto) Eos % (Auto) Baso % (Auto) Lymph # [place] # Eos # Baso # Seg Neutrophils % Seg Neuts % (Manual) Lymphocytes % (Manual) Eosinophils % (Manual) Seg Neutrophils # Lymphocytes # (Manual) Eosinophils # (Manual) PT INR D-Dimer POC ABG pH POC ABG pCO2 POC ABG pO2 ABG pO2 ABG HCO3 ABG Base Excess ABG Hemoglobin Oxyhemoglobin Sodium Potassium Chloride Carbon Dioxide BUN Creatinine Glucose POC Glucose 169 H 119 H 173 H Calcium Phosphorus Magnesium ALT Alkaline Phosphatase Total Creatine Kinase CK-MB (CK-2) Rel Index Troponin T Albumin LDL Cholesterol Direct PTH Intact Salicylates Acetaminophen Crossmatch 05/16/19 05/16/19 05/16/19 00:18 06:17 12:47 WBC RBC Hgb Hct MCV MCH MCHC RDW Plt Count Lymph % (Auto) [place] % (Auto) Eos % (Auto) Baso % (Auto) Lymph # [place] # Eos # Baso # Seg Neutrophils % Seg Neuts % (Manual) Lymphocytes % (Manual) Eosinophils % (Manual) Seg Neutrophils # Lymphocytes # (Manual) Eosinophils # (Manual) PT INR D-Dimer POC ABG pH POC ABG pCO2 POC ABG pO2 ABG pO2 ABG HCO3 ABG Base Excess ABG Hemoglobin Oxyhemoglobin Sodium Potassium Chloride Carbon Dioxide BUN Creatinine Glucose POC Glucose 201 H 149 H 207 H Calcium Phosphorus Magnesium ALT Alkaline Phosphatase Total Creatine Kinase CK-MB (CK-2) Rel Index Troponin T Albumin LDL Cholesterol Direct PTH Intact Salicylates Acetaminophen Crossmatch 05/16/19 05/17/19 05/17/19 17:48 00:01 06:26 WBC RBC Hgb Hct MCV MCH MCHC RDW Plt Count Lymph % (Auto) [place] % (Auto) Eos % (Auto) Baso % (Auto) Lymph # [place] # Eos # Baso # Seg Neutrophils % Seg Neuts % (Manual) Lymphocytes % (Manual) Eosinophils % (Manual) Seg Neutrophils # Lymphocytes # (Manual) Eosinophils # (Manual) PT INR D-Dimer POC ABG pH POC ABG pCO2 POC ABG pO2 ABG pO2 ABG HCO3 ABG Base Excess ABG Hemoglobin Oxyhemoglobin Sodium Potassium Chloride Carbon Dioxide BUN Creatinine Glucose POC Glucose 183 H 176 H 177 H Calcium Phosphorus Magnesium ALT Alkaline Phosphatase Total Creatine Kinase CK-MB (CK-2) Rel Index Troponin T Albumin LDL Cholesterol Direct PTH Intact Salicylates Acetaminophen Crossmatch 05/17/19 05/17/19 05/18/19 12:19 17:45 00:30 WBC RBC Hgb Hct MCV MCH MCHC RDW Plt Count Lymph % (Auto) [place] % (Auto) Eos % (Auto) Baso % (Auto) Lymph # [place] # Eos # Baso # Seg Neutrophils % Seg Neuts % (Manual) Lymphocytes % (Manual) Eosinophils % (Manual) Seg Neutrophils # Lymphocytes # (Manual) Eosinophils # (Manual) PT INR D-Dimer POC ABG pH POC ABG pCO2 POC ABG pO2 ABG pO2 ABG HCO3 ABG Base Excess ABG Hemoglobin Oxyhemoglobin Sodium Potassium Chloride Carbon Dioxide BUN Creatinine Glucose POC Glucose 174 H 171 H 181 H Calcium Phosphorus Magnesium ALT Alkaline Phosphatase Total Creatine Kinase CK-MB (CK-2) Rel Index Troponin T Albumin LDL Cholesterol Direct PTH Intact Salicylates Acetaminophen Crossmatch 05/18/19 05/18/19 05/19/19 06:18 16:53 00:19 WBC RBC Hgb Hct MCV MCH MCHC RDW Plt Count Lymph % (Auto) [place] % (Auto) Eos % (Auto) Baso % (Auto) Lymph # [place] # Eos # Baso # Seg Neutrophils % Seg Neuts % (Manual) Lymphocytes % (Manual) Eosinophils % (Manual) Seg Neutrophils # Lymphocytes # (Manual) Eosinophils # (Manual) PT INR D-Dimer POC ABG pH POC ABG pCO2 POC ABG pO2 ABG pO2 ABG HCO3 ABG Base Excess ABG Hemoglobin Oxyhemoglobin Sodium Potassium Chloride Carbon Dioxide BUN Creatinine Glucose POC Glucose 165 H 166 H 207 H Calcium Phosphorus Magnesium ALT Alkaline Phosphatase Total Creatine Kinase CK-MB (CK-2) Rel Index Troponin T Albumin LDL Cholesterol Direct PTH Intact Salicylates Acetaminophen Crossmatch 05/19/19 05/19/19 05/19/19 01:00 01:00 05:15 WBC 11.6 H RBC 3.12 L Hgb 7.9 L Hct 25.9 L MCV 83 L MCH 25 L MCHC 31 L RDW 21.1 H Plt Count Lymph % (Auto) [place] % (Auto) Eos % (Auto) Baso % (Auto) Lymph # [place] # Eos # Baso # Seg Neutrophils % Seg Neuts % (Manual) Lymphocytes % (Manual) Eosinophils % (Manual) Seg Neutrophils # Lymphocytes # (Manual) Eosinophils # (Manual) PT INR D-Dimer POC ABG pH POC ABG pCO2 POC ABG pO2 ABG pO2 ABG HCO3 ABG Base Excess ABG Hemoglobin Oxyhemoglobin Sodium 135 L Potassium Chloride 93.6 L Carbon Dioxide BUN 64 H Creatinine 2.8 H Glucose 194 H POC Glucose 176 H Calcium Phosphorus Magnesium ALT Alkaline Phosphatase Total Creatine Kinase CK-MB (CK-2) Rel Index Troponin T Albumin LDL Cholesterol Direct PTH Intact Salicylates Acetaminophen Crossmatch 05/19/19 05/19/19 05/20/19 11:21 18:48 00:01 WBC RBC Hgb Hct MCV MCH MCHC RDW Plt Count Lymph % (Auto) [place] % (Auto) Eos % (Auto) Baso % (Auto) Lymph # [place] # Eos # Baso # Seg Neutrophils % Seg Neuts % (Manual) Lymphocytes % (Manual) Eosinophils % (Manual) Seg Neutrophils # Lymphocytes # (Manual) Eosinophils # (Manual) PT INR D-Dimer POC ABG pH POC ABG pCO2 POC ABG pO2 ABG pO2 ABG HCO3 ABG Base Excess ABG Hemoglobin Oxyhemoglobin Sodium Potassium Chloride Carbon Dioxide BUN Creatinine Glucose POC Glucose 162 H 140 H 200 H Calcium Phosphorus Magnesium ALT Alkaline Phosphatase Total Creatine Kinase CK-MB (CK-2) Rel Index Troponin T Albumin LDL Cholesterol Direct PTH Intact Salicylates Acetaminophen Crossmatch 05/20/19 05/20/19 05/21/19 05:58 17:50 00:43 WBC RBC Hgb Hct MCV MCH MCHC RDW Plt Count Lymph % (Auto) [place] % (Auto) Eos % (Auto) Baso % (Auto) Lymph # [place] # Eos # Baso # Seg Neutrophils % Seg Neuts % (Manual) Lymphocytes % (Manual) Eosinophils % (Manual) Seg Neutrophils # Lymphocytes # (Manual) Eosinophils # (Manual) PT INR D-Dimer POC ABG pH POC ABG pCO2 POC ABG pO2 ABG pO2 ABG HCO3 ABG Base Excess ABG Hemoglobin Oxyhemoglobin Sodium Potassium Chloride Carbon Dioxide BUN Creatinine Glucose POC Glucose 132 H 154 H 165 H Calcium Phosphorus Magnesium ALT Alkaline Phosphatase Total Creatine Kinase CK-MB (CK-2) Rel Index Troponin T Albumin LDL Cholesterol Direct PTH Intact Salicylates Acetaminophen Crossmatch 05/21/19 05/21/19 05/21/19 06:06 11:15 17:04 WBC RBC Hgb Hct MCV MCH MCHC RDW Plt Count Lymph % (Auto) [place] % (Auto) Eos % (Auto) Baso % (Auto) Lymph # [place] # Eos # Baso # Seg Neutrophils % Seg Neuts % (Manual) Lymphocytes % (Manual) Eosinophils % (Manual) Seg Neutrophils # Lymphocytes # (Manual) Eosinophils # (Manual) PT INR D-Dimer POC ABG pH POC ABG pCO2 POC ABG pO2 ABG pO2 ABG HCO3 ABG Base Excess ABG Hemoglobin Oxyhemoglobin Sodium Potassium Chloride Carbon Dioxide BUN Creatinine Glucose POC Glucose 178 H 218 H 135 H Calcium Phosphorus Magnesium ALT Alkaline Phosphatase Total Creatine Kinase CK-MB (CK-2) Rel Index Troponin T Albumin LDL Cholesterol Direct PTH Intact Salicylates Acetaminophen Crossmatch 05/21/19 05/22/19 05/22/19 23:25 06:09 18:32 WBC RBC Hgb Hct MCV MCH MCHC RDW Plt Count Lymph % (Auto) [place] % (Auto) Eos % (Auto) Baso % (Auto) Lymph # [place] # Eos # Baso # Seg Neutrophils % Seg Neuts % (Manual) Lymphocytes % (Manual) Eosinophils % (Manual) Seg Neutrophils # Lymphocytes # (Manual) Eosinophils # (Manual) PT INR D-Dimer POC ABG pH POC ABG pCO2 POC ABG pO2 ABG pO2 ABG HCO3 ABG Base Excess ABG Hemoglobin Oxyhemoglobin Sodium Potassium Chloride Carbon Dioxide BUN Creatinine Glucose POC Glucose 221 H 140 H 216 H Calcium Phosphorus Magnesium ALT Alkaline Phosphatase Total Creatine Kinase CK-MB (CK-2) Rel Index Troponin T Albumin LDL Cholesterol Direct PTH Intact Salicylates Acetaminophen Crossmatch 05/22/19 05/23/19 05/23/19 23:56 05:23 12:46 WBC RBC Hgb Hct MCV MCH MCHC RDW Plt Count Lymph % (Auto) [place] % (Auto) Eos % (Auto) Baso % (Auto) Lymph # [place] # Eos # Baso # Seg Neutrophils % Seg Neuts % (Manual) Lymphocytes % (Manual) Eosinophils % (Manual) Seg Neutrophils # Lymphocytes # (Manual) Eosinophils # (Manual) PT INR D-Dimer POC ABG pH POC ABG pCO2 POC ABG pO2 ABG pO2 ABG HCO3 ABG Base Excess ABG Hemoglobin Oxyhemoglobin Sodium Potassium Chloride Carbon Dioxide BUN Creatinine Glucose POC Glucose 177 H 188 H 165 H Calcium Phosphorus Magnesium ALT Alkaline Phosphatase Total Creatine Kinase CK-MB (CK-2) Rel Index Troponin T Albumin LDL Cholesterol Direct PTH Intact Salicylates Acetaminophen Crossmatch 05/23/19 05/24/19 05/24/19 17:36 00:06 06:51 WBC RBC Hgb Hct MCV MCH MCHC RDW Plt Count Lymph % (Auto) [place] % (Auto) Eos % (Auto) Baso % (Auto) Lymph # [place] # Eos # Baso # Seg Neutrophils % Seg Neuts % (Manual) Lymphocytes % (Manual) Eosinophils % (Manual) Seg Neutrophils # Lymphocytes # (Manual) Eosinophils # (Manual) PT INR D-Dimer POC ABG pH POC ABG pCO2 POC ABG pO2 ABG pO2 ABG HCO3 ABG Base Excess ABG Hemoglobin Oxyhemoglobin Sodium Potassium Chloride Carbon Dioxide BUN Creatinine Glucose POC Glucose 204 H 155 H 169 H Calcium Phosphorus Magnesium ALT Alkaline Phosphatase Total Creatine Kinase CK-MB (CK-2) Rel Index Troponin T Albumin LDL Cholesterol Direct PTH Intact Salicylates Acetaminophen Crossmatch 05/24/19 11:33 WBC RBC Hgb Hct MCV MCH MCHC RDW Plt Count Lymph % (Auto) [place] % (Auto) Eos % (Auto) Baso % (Auto) Lymph # [place] # Eos # Baso # Seg Neutrophils % Seg Neuts % (Manual) Lymphocytes % (Manual) Eosinophils % (Manual) Seg Neutrophils # Lymphocytes # (Manual) Eosinophils # (Manual) PT INR D-Dimer POC ABG pH POC ABG pCO2 POC ABG pO2 ABG pO2 ABG HCO3 ABG Base Excess ABG Hemoglobin Oxyhemoglobin Sodium Potassium Chloride Carbon Dioxide BUN Creatinine Glucose POC Glucose 158 H Calcium Phosphorus Magnesium ALT Alkaline Phosphatase Total Creatine Kinase CK-MB (CK-2) Rel Index Troponin T Albumin LDL Cholesterol Direct PTH Intact Salicylates Acetaminophen Crossmatch
--- NOTE | 2019-05-24 15:01 | Progress Note ---
Assessment and Plan - Patient Problems (1) ESRD (end stage renal disease) on dialysis Current Visit: Yes Status: Chronic Plan to address problem: End stage renal disease : - access: Left arm AVG Continue hemodialysis Saturday (2) Diabetes mellitus, insulin dependent (IDDM), uncontrolled Current Visit: No Status: Acute Qualifiers: Glycemic state: with hyperglycemia Qualified Code(s): E10.65 - Type 1 diab etes mellitus with hyperglycemia Plan to address problem: DM type II uncontrolled Monitor Fingersticks (3) Anemia in chronic kidney disease, on chronic dialysis Current Visit: Yes Status: Acute Plan to address problem: Anemia of chronic kidney disease hemoglobin 8.8g/dl We'll give Epogen Monitor CBC (4) Hypertension Current Visit: Yes Status: Acute Qualifiers: Hypertension type: essential hypertension Qualified Code(s): I10 - Essential (primary) hypertension Plan to address problem: Hypertension controlled currently on Prn antihypertensives. Monitor blood pressure Subjective Principal diagnosis: Respiratory failure, acute on chronic systolic HF, ESRD Interval history: 63 year old Gentleman with medical history significant for ESRD on hemodialysis at [facility] on Saturday, Saturday and Saturday. via a left arm AVG admitted with acute respiratory failure; and hypotension prolonged hospital course received antibiotics for acinetobacter infection and s/p prolonged need for ventilation requiring Tracheostomy with T piece , now Tracheostomy has been capped. Patient seen today has tracheostomy no lower extremity edema. continue HD MWF oriented to self. Objective - Vital Signs Vital signs: Vital Signs - 12hr 05/24/19 05/24/19 05/24/19 05:44 08:29 12:26 Temperature 98.0 F Pulse Rate 128 H Pulse Rate [ 70 Anterior Bilateral Throughout] Respiratory 16 Rate Respiratory 18 Rate [Anterior Bilateral Throughout] Blood Pressure 120/61 O2 Sat by Pulse 100 Oximetry O2 Sat by Pulse 100 Oximetry [ Assessment] 05/24/19 05/24/19 12:51 14:03 Temperature 99.1 F Pulse Rate 112 H Pulse Rate [ 78 Anterior Bilateral Throughout] Respiratory 20 Rate Respiratory 18 Rate [Anterior Bilateral Throughout] Blood Pressure 114/63 O2 Sat by Pulse 100 Oximetry O2 Sat by Pulse Oximetry [ Assessment] - General Appearance General appearance: well-developed, well-nourished EENT: ATNC, PERRL, mucous membranes moist Neck: no JVD Respiratory: Present: Clear to Ascultation Cardiology: regular, S1S2 Gastrointestinal: normal, normoactive bowel sounds Integumentary: no rash Neurologic: alert and oriented x3, CN 3-12 intact Psychiatric: mood/affect appropriate - Lab 05/19/19 01:00 05/19/19 01:00 Most recent lab results ABG pH 7.424 pH Units (7.350-7.450) 03/19/19 04:23 ABG pCO2 48.0 mm Hg 03/19/19 04:23 ABG pO2 78.3 mm Hg (80.0-90.0) L 03/19/19 04:23 ABG HCO3 30.7 mmol/L (20.0-26.0) H 03/19/19 04:23 ABG O2 Saturation 97.0 % (95.0-99.0) 03/19/19 04:23 Calcium 9.5 mg/dL (8.4-10.2) 05/19/19 01:00 Phosphorus 4.30 mg/dL (2.5-4.5) D 03/31/19 10:26 Magnesium 2.70 mg/dL (1.7-2.3) H 03/30/19 10:13 - Imaging Chest x-ray: image reviewed (I reviewed CXR with improvement in edema. ) Medications & Allergies - Medications Allergies/Adverse Reactions: Allergies haloperidol [From Haldol] Adverse Reaction (Verified 03/13/18 12:10) Unknown haloperidol lactate [From Haldol] Adverse Reaction (Verified 03/13/18 12:10) Unknown Home Medications: Home Medications Medication Instructions Recorded Confirmed Last Taken Type risperiDONE [RisperDAL] 1 mg PO QAM 03/13/18 02/21/19 Unknown History Sertraline [Zoloft] 100 mg PO QDAY 08/26/18 02/21/19 Unknown History Polyethylene Glycol 3350 [Miralax 17 gm PO QDAY #30 packet 11/05/18 02/21/19 Unknown Rx 3350] Aspirin EC [Halfprin EC] 81 mg PO DAILY #30 11/19/18 02/21/19 Unknown Rx Docusate Sodium [Colace CAP] 100 mg PO BID #60 11/19/18 02/21/19 Unknown Rx Folic Acid [Folvite] 1 mg PO DAILY #30 tab 11/19/18 02/21/19 Unknown Rx Famotidine [Pepcid] 20 mg PO DAILY tablet 12/08/18 02/21/19 Unknown Rx Gabapentin 100 mg PO QHS capsule 12/08/18 02/21/19 Unknown Rx Metoprolol [Lopressor TAB] 50 mg PO BID 30 Days tablet 12/08/18 02/21/19 Unknown Rx Sevelamer Carbonate [Renvela] 800 mg PO TIDWM tablet 12/08/18 02/21/19 Unknown Rx hydrALAZINE [Apresoline TAB] 100 mg PO Q8HR #120 tablet 12/08/18 02/21/19 Unknown Rx Acetaminophen [Acetaminophen TAB] 650 mg PO Q12H PRN 12/15/18 02/21/19 Unknown History Glucagon,Human Recombinant 1 mg IJ Q15MIN PRN 12/15/18 02/21/19 Unknown History [Glucagon Emergency Kit] Insulin Aspart [NovoLOG 100 See Protocol SQ QWEEK 12/15/18 02/21/19 Unknown History UNITS/ML VIAL] Active Medications: Generic Name Dose Route Start Last Admin Trade Name Freq PRN Reason Stop Dose Admin Acetaminophen 650 mg 05/18/19 23:33 05/22/19 22:40 Tylenol PO 650 mg Q6HR PRN Administration PAIN Albuterol/Ipratropium 1 ampul 02/24/19 20:00 05/24/19 14:01 Duoneb *Not For Prn Use* IH 1 ampul TIDRT SANCHEZ Administration Lipase/Protease/Amylase 1 each 04/10/19 15:16 Pancrejewel Barrientos 10,500 Unit FEEDTUBE PRN PRN For Clogged Feeding Tube Epoetin Solitario 20,000 unit 03/24/19 11:17 05/22/19 12:11 Procrit IV 20,000 unit UMA PRN Administration hemodialysis Famotidine 20 mg 02/23/19 10:00 05/24/19 09:37 Pepcid PO 20 mg DAILY SANCHEZ Administration Sodium Chloride 100 mls @ 999 mls/hr 05/13/19 12:45 Nacl 0.9% IV UMA PRN Hypotension Insulin Human Regular 0 units 02/26/19 12:00 05/24/19 12:26 Humulin R SUB-Q 1 units Q6HR SANCHEZ Administration Protocol Metoprolol Tartrate 2.5 mg 02/28/19 12:06 03/15/19 05:15 Lopressor IV 2.5 mg Q4HR PRN Administration Tachycardia Risperidone 1 mg 02/25/19 13:00 05/24/19 09:37 Risperdal PO 1 mg DAILY SANCHEZ Administration Sertraline HCl 100 mg 02/25/19 13:00 05/24/19 09:37 Zoloft PO 100 mg DAILY SANCHEZ Administration Simple Syrup 15 ml 04/10/19 15:16 Simple Syrup FEEDTUBE PRN PRN Hypoglycemia Simple Syrup 30 ml 04/10/19 15:16 Simple Syrup FEEDTUBE PRN PRN Hypoglycemia Sodium Bicarbonate 325 mg 04/10/19 15:16 Sodium Bicarbonate FEEDTUBE PRN PRN For Clogged Feeding Tube Sodium Hypochlorite 1 applic 04/01/19 13:00 05/24/19 09:36 Dakin's Half Strength TP 1 applicatio BID SANCHEZ Administration
[2019-05-25] MEDS: INSULIN REGULAR, HUMAN 100 UNITS/1 ML SUB-Q SCH ×4 (00:18→19:51)
[2019-05-25] MEDS: ACETAMINOPHEN 325 MG TAB PO PRN (07:07)
[2019-05-25] MEDS: IPRATROPIUM/ALBUTEROL SULFATE 3 ML AMPUL.NEB IH SCH ×3 (08:07→19:45)
--- NOTE | 2019-05-25 08:29 | Progress Note ---
Subjective Principal diagnosis: Respiratory failure, acute on chronic systolic HF, ESRD Interval history: Patient was seen today for follow-up on multiple renal related issues Events of this hospitalization were noted currently on dialysis Interdisciplinary notes were also reviewed Vitals intake output medications were reviewed Past medical history: Reviewed Family, social history: Reviewed Allergies: Reviewed Physical examination General: No acute distress Vitals: Reviewed HEENT: Oral mucosa moist no icterus Neck: Supple no thyromegaly nodular mass or JVD Chest: Clear to auscultation anteriorly Heart: Regular rate and rhythm S1-S2 heard no S3-S4 Abdomen: Soft nontender no suprapubic masses no organomegaly Extremity: Dry skin less than 1+ edema Psych: No evidence of any agitation and aggression noted Assessment and plan: ESRD continue with hemodialysis treatment 3 times per week only as tolerated Patient is already on erythropoietin 20,000 units for anemia We will continue to monitor dialysis related labs periodically Dialysis access is a left arm AV graft Patient has been noted to have low-grade fever 100.3, this could be multifactorial, and must be monitored Dialysis nurse to monitor blood pressure and heart rate very closely on dialysis, hemodialysis only as tolerated Overall prognosis appears to be very poor patient in my opinion appears to be hospice appropriate and his mortality risk is very high His quality of life is also very poor Multiple underlying comorbidities We'll continue to follow and make recommendation from renal standpoint Objective - Vital Signs Vital signs: Vital Signs - 12hr 05/24/19 05/24/19 05/24/19 20:58 20:59 23:31 Temperature 99.3 F Pulse Rate 110 H Pulse Rate [ 104 H Anterior Bilateral Throughout] Respiratory 20 Rate Respiratory 20 Rate [Anterior Bilateral Throughout] Blood Pressure 108/57 O2 Sat by Pulse 98 95 Oximetry O2 Sat by Pulse Oximetry [ Assessment] 05/25/19 05/25/19 05/25/19 03:10 05:28 08:07 Temperature 100.3 F H Pulse Rate 102 H Pulse Rate [ 114 H Anterior Bilateral Throughout] Respiratory 18 Rate Respiratory 18 Rate [Anterior Bilateral Throughout] Blood Pressure 129/54 O2 Sat by Pulse 96 Oximetry O2 Sat by Pulse 96 Oximetry [ Assessment] - Lab 05/19/19 01:00 05/19/19 01:00 Most recent lab results ABG pH 7.424 pH Units (7.350-7.450) 03/19/19 04:23 ABG pCO2 48.0 mm Hg 03/19/19 04:23 ABG pO2 78.3 mm Hg (80.0-90.0) L 03/19/19 04:23 ABG HCO3 30.7 mmol/L (20.0-26.0) H 03/19/19 04:23 ABG O2 Saturation 97.0 % (95.0-99.0) 03/19/19 04:23 Calcium 9.5 mg/dL (8.4-10.2) 05/19/19 01:00 Phosphorus 4.30 mg/dL (2.5-4.5) D 03/31/19 10:26 Magnesium 2.70 mg/dL (1.7-2.3) H 03/30/19 10:13 Medications & Allergies - Medications Allergies/Adverse Reactions: Allergies haloperidol [From Haldol] Adverse Reaction (Verified 03/13/18 12:10) Unknown haloperidol lactate [From Haldol] Adverse Reaction (Verified 03/13/18 12:10) Unknown Home Medications: Home Medications Medication Instructions Recorded Confirmed Last Taken Type risperiDONE [RisperDAL] 1 mg PO QAM 03/13/18 02/21/19 Unknown History Sertraline [Zoloft] 100 mg PO QDAY 08/26/18 02/21/19 Unknown History Polyethylene Glycol 3350 [Miralax 17 gm PO QDAY #30 packet 11/05/18 02/21/19 Unknown Rx 3350] Aspirin EC [Halfprin EC] 81 mg PO DAILY #30 11/19/18 02/21/19 Unknown Rx Docusate Sodium [Colace CAP] 100 mg PO BID #60 11/19/18 02/21/19 Unknown Rx Folic Acid [Folvite] 1 mg PO DAILY #30 tab 11/19/18 02/21/19 Unknown Rx Famotidine [Pepcid] 20 mg PO DAILY tablet 12/08/18 02/21/19 Unknown Rx Gabapentin 100 mg PO QHS capsule 12/08/18 02/21/19 Unknown Rx Metoprolol [Lopressor TAB] 50 mg PO BID 30 Days tablet 12/08/18 02/21/19 Unknown Rx Sevelamer Carbonate [Renvela] 800 mg PO TIDWM tablet 12/08/18 02/21/19 Unknown Rx hydrALAZINE [Apresoline TAB] 100 mg PO Q8HR #120 tablet 12/08/18 02/21/19 Unknown Rx Acetaminophen [Acetaminophen TAB] 650 mg PO Q12H PRN 12/15/18 02/21/19 Unknown History Glucagon,Human Recombinant 1 mg IJ Q15MIN PRN 12/15/18 02/21/19 Unknown History [Glucagon Emergency Kit] Insulin Aspart [NovoLOG 100 See Protocol SQ QWEEK 12/15/18 02/21/19 Unknown History UNITS/ML VIAL] Active Medications: Generic Name Dose Route Start Last Admin Trade Name Freq PRN Reason Stop Dose Admin Acetaminophen 650 mg 05/18/19 23:33 05/25/19 07:07 Tylenol PO 650 mg Q6HR PRN Administration PAIN Albuterol/Ipratropium 1 ampul 02/24/19 20:00 05/25/19 08:07 Duoneb *Not For Prn Use* IH 1 ampul TIDRT SANCHEZ Administration Lipase/Protease/Amylase 1 each 04/10/19 15:16 Pancreaze 10,500 Unit FEEDTUBE PRN PRN For Clogged Feeding Tube Epoetin Solitario 20,000 unit 03/24/19 11:17 05/22/19 12:11 Procrit IV 20,000 unit UMA PRN Administration hemodialysis Famotidine 20 mg 02/23/19 10:00 05/24/19 09:37 Pepcid PO 20 mg DAILY SANCHEZ Administration Sodium Chloride 100 mls @ 999 mls/hr 05/13/19 12:45 Nacl 0.9% IV UMA PRN Hypotension Insulin Human Regular 0 units 02/26/19 12:00 05/25/19 06:42 Humulin R SUB-Q Not Given Q6HR [facility] Protocol Metoprolol Tartrate 2.5 mg 02/28/19 12:06 03/15/19 05:15 Lopressor IV 2.5 mg Q4HR PRN Administration Tachycardia Risperidone 1 mg 02/25/19 13:00 05/24/19 09:37 Risperdal PO 1 mg DAILY SANCHEZ Administration Sertraline HCl 100 mg 02/25/19 13:00 05/24/19 09:37 Zoloft PO 100 mg DAILY SANCHEZ Administration Simple Syrup 15 ml 04/10/19 15:16 Simple Syrup FEEDTUBE PRN PRN Hypoglycemia Simple Syrup 30 ml 04/10/19 15:16 Simple Syrup FEEDTUBE PRN PRN Hypoglycemia Sodium Bicarbonate 325 mg 04/10/19 15:16 Sodium Bicarbonate FEEDTUBE PRN PRN For Clogged Feeding Tube Sodium Hypochlorite 1 applic 04/01/19 13:00 05/24/19 22:12 Dakin's Half Strength TP 1 applicatio BID SANCHEZ Administration
--- NOTE | 2019-05-25 09:50 | Progress Note ---
Assessment and Plan Assessment and plan: Patient is a 63-year-old -Irish man from [facility] with a plethora of co-morbidities including blindness, CVA, CHF, PPM/ICD, loop recorder since 2012 that is MRI compatible, IDDM type 2, sepsis left foot ulcer, afib, ESRD with complications on HD TTS, hypertension, AOCD and GERD who presented to the ED with hypotensive after intubation in the emergency room., diagnosed with fluid overload, pleural effusion. Patient has had recurrent admission in the hospital for similar reason and was recently discharged from the hospital following treatment of Severe Sepsis due to Necrotizing Unstagable sacral decubitus ulcer with ostemomylitis, expected to complete abx on discharge till 02/16/19. Fever has resolved mgt per ID, continue to monitor off antibiotics Trach and peg done HR control improved with change in BB. Acute respiratory failure on mechanical ventilator >96 hrs Trach is capped Acute pulmonary edema, fluid overload on CXR Fluid management with dialysis Necrotizing Unstagable sacral decubitus ulcer with ostemomyelitis Wound care, Dilated CMP Cardiomyiopathy EF 35-40% Continue diuresis PPM/ICD Acute encephalopathy, probably metabolic or toxic Continues on Mechanical ventilator. ESRD on hemodialysis nephrology following Vascular eval. done re: LUE AV graft, see note Bilateral pleural effusions Anticipate improvement with Permanent atrial fibrillation and flutter Not on anticoagulation because of anemia thrombocytopenia Rate control. 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 -Pt is s/p x1 DDVAP DVT prophylaxis Lovenox DNR poor prognosis Disposition, needs SNF with dialysis chair time History Interval history: Max temperature was 100.3 remains demented no vomiting, no agitation, no seizures Hospitalist Physical - Physical exam Narrative exam: Constitutional: no acute distress, opens eyes, says hello Eyes: non-icteric ENT: oropharynx moist Neck: supple Effort: normal Ascultation: Bilateral: other (coarse BS bilaterally) Percussion: Bilateral: not dull Cardiovascular: regular rate and rhythm (no mrg) Gastrointestinal: normoactive bowel sounds, soft, non-tender, non-distended, other (ostomy in place, brown stool) Extremities: no cyanosis, no edema, pink and warm Neurologic: other (mild weakness LUE, o/w nonfocal), demented, turns and say hello Psychiatric: other (unable to assess) SKIN; Left 5th finger, stage 4 pressure ulcer,Left heel, deep tissue injury, Sacrum, stage 4 pressure ulcer POA - Constitutional Vitals: Temp Pulse Resp BP Pulse Ox 100.3 F H 114 H 18 129/54 96 05/25/19 05:28 05/25/19 08:07 05/25/19 08:07 05/25/19 05:28 05/25/19 05:28 General appearance: Present: no acute distress, other (T peace). Absent: well- nourished Results - Labs CBC & Chem 7: 05/19/19 01:00 05/19/19 01:00 Labs: Laboratory Last Values WBC 11.6 K/mm3 (4.5-11.0) H 05/19/19 01:00 RBC 3.12 M/mm3 (3.65-5.03) L 05/19/19 01:00 Hgb 7.9 gm/dl (11.8-15.2) L 05/19/19 01:00 Hct 25.9 % (35.5-45.6) L 05/19/19 01:00 MCV 83 fl (84-94) L 05/19/19 01:00 MCH 25 pg (28-32) L 05/19/19 01:00 MCHC 31 % (32-34) L 05/19/19 01:00 RDW 21.1 % (13.2-15.2) H 05/19/19 01:00 Plt Count 386 K/mm3 (140-440) 05/19/19 01:00 Lymph % (Auto) 6.9 % (13.4-35.0) L 05/12/19 07:15 [place] % (Auto) 7.3 % (0.0-7.3) 05/12/19 07:15 Eos % (Auto) 6.5 % (0.0-4.3) H 05/12/19 07:15 Baso % (Auto) 0.7 % (0.0-1.8) 05/12/19 07:15 Lymph # 0.7 K/mm3 (1.2-5.4) L 05/12/19 07:15 [place] # 0.7 K/mm3 (0.0-0.8) 05/12/19 07:15 Eos # 0.6 K/mm3 (0.0-0.4) H 05/12/19 07:15 Baso # 0.1 K/mm3 (0.0-0.1) 05/12/19 07:15 Add Manual Diff Complete 03/21/19 06:30 Total Counted 100 03/21/19 06:30 Seg Neutrophils % 78.6 % (40.0-70.0) H 05/12/19 07:15 Seg Neuts % (Manual) 81.0 % (40.0-70.0) H 03/21/19 06:30 Band Neutrophils % 0 % 03/21/19 06:30 Lymphocytes % (Manual) 8.0 % (13.4-35.0) L 03/21/19 06:30 Reactive Lymphs % (Man) 0 % 03/21/19 06:30 Monocytes % (Manual) 1.0 % (0.0-7.3) 03/21/19 06:30 Eosinophils % (Manual) 8.0 % (0.0-4.3) H 03/21/19 06:30 Basophils % (Manual) 1.0 % (0.0-1.8) 03/21/19 06:30 Metamyelocytes % 1.0 % 03/21/19 06:30 Myelocytes % 0 % 03/21/19 06:30 Promyelocytes % 0 % 03/21/19 06:30 Blast Cells % 0 % 03/21/19 06:30 Nucleated RBC % Not Reportable 03/21/19 06:30 Seg Neutrophils # 7.8 K/mm3 (1.8-7.7) H 05/12/19 07:15 Seg Neutrophils # Man 6.7 K/mm3 (1.8-7.7) 03/21/19 06:30 Band Neutrophils # 0.0 K/mm3 03/21/19 06:30 Lymphocytes # (Manual) 0.7 K/mm3 (1.2-5.4) L 03/21/19 06:30 Abs React Lymphs (Man) 0.0 K/mm3 03/21/19 06:30 Monocytes # (Manual) 0.1 K/mm3 (0.0-0.8) 03/21/19 06:30 Eosinophils # (Manual) 0.7 K/mm3 (0.0-0.4) H 03/21/19 06:30 Basophils # (Manual) 0.1 K/mm3 (0.0-0.1) 03/21/19 06:30 Metamyelocytes # 0.1 K/mm3 03/21/19 06:30 Myelocytes # 0.0 K/mm3 03/21/19 06:30 Promyelocytes # 0.0 K/mm3 03/21/19 06:30 Blast Cells # 0.0 K/mm3 03/21/19 06:30 WBC Morphology Not Reportable 03/21/19 06:30 Hypersegmented Neuts Not Reportable 03/21/19 06:30 Hyposegmented Neuts Not Reportable 03/21/19 06:30 Hypogranular Neuts Not Reportable 03/21/19 06:30 Smudge Cells Not Reportable 03/21/19 06:30 Toxic Granulation Not Reportable 03/21/19 06:30 Toxic Vacuolation Not Reportable 03/21/19 06:30 Dohle Bodies Not Reportable 03/21/19 06:30 Pelger-Huet Anomaly Not Reportable 03/21/19 06:30 Tramaine Rods Not Reportable 03/21/19 06:30 Platelet Estimate Consistent w auto 03/21/19 06:30 Clumped Platelets Not Reportable 03/21/19 06:30 Plt Clumps, EDTA Not Reportable 03/21/19 06:30 Large Platelets Not Reportable 03/21/19 06:30 Giant Platelets Not Reportable 03/21/19 06:30 Platelet Satelliting Not Reportable 03/21/19 06:30 Plt Morphology Comment Not Reportable 03/21/19 06:30 RBC Morphology Not Reportable 03/21/19 06:30 Dimorphic RBCs Not Reportable 03/21/19 06:30 Polychromasia Not Reportable 03/21/19 06:30 Hypochromasia Few 03/21/19 06:30 Poikilocytosis Few 03/21/19 06:30 Anisocytosis Few 03/21/19 06:30 Microcytosis Not Reportable 03/21/19 06:30 Macrocytosis Not Reportable 03/21/19 06:30 Spherocytes Not Reportable 03/21/19 06:30 Pappenheimer Bodies Not Reportable 03/21/19 06:30 Sickle Cells Not Reportable 03/21/19 06:30 Target Cells 1+ 03/21/19 06:30 Tear Drop Cells Not Reportable 03/21/19 06:30 Ovalocytes Few 03/21/19 06:30 Helmet Cells Not Reportable 03/21/19 06:30 Zhou-Wildrose Bodies Not Reportable 03/21/19 06:30 Hegins Rings Not Reportable 03/21/19 06:30 [place] Cells Not Reportable 03/21/19 06:30 Bite Cells Not Reportable 03/21/19 06:30 Crenated Cell Not Reportable 03/21/19 06:30 Elliptocytes Not Reportable 03/21/19 06:30 Acanthocytes (Spur) Not Reportable 03/21/19 06:30 Rouleaux Not Reportable 03/21/19 06:30 Hemoglobin C Crystals Not Reportable 03/21/19 06:30 Schistocytes Not Reportable 03/21/19 06:30 Malaria parasites Not Reportable 03/21/19 06:30 Jose Juan Bodies Not Reportable 03/21/19 06:30 Hem Pathologist Commnt No 03/21/19 06:30 PT 16.3 Sec. (12.2-14.9) H 03/01/19 09:39 INR 1.35 (0.87-1.13) H 03/01/19 09:39 APTT 33.7 Sec. (24.2-36.6) 02/21/19 18:30 D-Dimer 2987.82 ng/mlDDU (0-234) H 02/22/19 05:54 POC ABG pH 7.510 (7.35-7.45) H 03/18/19 06:38 ABG pH 7.424 pH Units (7.350-7.450) 03/19/19 04:23 POC ABG pCO2 38.9 (35-45) 03/18/19 06:38 ABG pCO2 48.0 mm Hg 03/19/19 04:23 POC ABG pO2 164 (80-105) H 03/18/19 06:38 ABG pO2 78.3 mm Hg (80.0-90.0) L 03/19/19 04:23 POC ABG HCO3 31.0 (22-26 mml/L) 03/18/19 06:38 ABG HCO3 30.7 mmol/L (20.0-26.0) H 03/19/19 04:23 POC ABG Total CO2 32 (23-27mmol/L) 03/18/19 06:38 POC ABG O2 Sat 100 03/18/19 06:38 ABG O2 Saturation 97.0 % (95.0-99.0) 03/19/19 04:23 ABG O2 Content 7.9 (0.0-44) 03/19/19 04:23 POC ABG Base Excess 8 ((-2) - (+3)mmol/L) 03/18/19 06:38 ABG Base Excess 5.8 mmol/L (-2.0-3.0) H 03/19/19 04:23 ABG Hemoglobin 5.8 gm/dl (14.0-18.0) L 03/19/19 04:23 ABG Carboxyhemoglobin 2.0 % (0.0-5.0) 03/19/19 04:23 ABG Methemoglobin 0.4 % (0.0-1.5) 03/19/19 04:23 Oxyhemoglobin 94.6 % (95.0-99.0) L 03/19/19 04:23 FiO2 35 % 03/19/19 04:23 Sodium 135 mmol/L (137-145) L 05/19/19 01:00 Potassium 3.9 mmol/L (3.6-5.0) 05/19/19 01:00 Chloride 93.6 mmol/L (98-107) L 05/19/19 01:00 Carbon Dioxide 29 mmol/L (22-30) 05/19/19 01:00 Anion Gap 16 mmol/L 05/19/19 01:00 BUN 64 mg/dL (9-20) H 05/19/19 01:00 Creatinine 2.8 mg/dL (0.8-1.5) H 05/19/19 01:00 Estimated GFR 28 ml/min 05/19/19 01:00 BUN/Creatinine Ratio 23 % 05/19/19 01:00 Glucose 194 mg/dL (75-100) H 05/19/19 01:00 POC Glucose 128 (70-105) H 05/25/19 05:34 Lactic Acid 1.00 mmol/L (0.7-2.0) 02/21/19 20:58 Calcium 9.5 mg/dL (8.4-10.2) 05/19/19 01:00 Phosphorus 4.30 mg/dL (2.5-4.5) D 03/31/19 10:26 Magnesium 2.70 mg/dL (1.7-2.3) H 03/30/19 10:13 Total Bilirubin 0.20 mg/dL (0.1-1.2) 03/30/19 10:13 AST 16 units/L (5-40) 03/30/19 10:13 ALT 11 units/L (7-56) 03/30/19 10:13 Alkaline Phosphatase 185 units/L (35-129) H 03/30/19 10:13 Ammonia 28.0 umol/L (25-60) 02/21/19 20:04 Total Creatine Kinase 64 units/L (55-170) 02/22/19 03:42 CK-MB (CK-2) 3.7 ng/mL (0.0-4.0) 02/22/19 03:42 CK-MB (CK-2) Rel Index 5.7 (0-4) H 02/22/19 03:42 Troponin T 0.193 ng/mL (0.00-0.029) H* 02/22/19 03:42 Total Protein 6.9 g/dL (6.3-8.2) 03/30/19 10:13 Albumin 2.6 g/dL (3.9-5) L 03/30/19 10:13 Albumin/Globulin Ratio 0.6 % 03/30/19 10:13 Triglycerides 51 mg/dL (2-149) 02/21/19 18:30 Cholesterol 82 mg/dL (50-199) 02/21/19 18:30 LDL Cholesterol Direct 36 mg/dL (50-130) L 02/21/19 18:30 HDL Cholesterol 40 mg/dL (40-59) 02/21/19 18:30 Cholesterol/HDL Ratio 2.05 % 02/21/19 18:30 TSH 2.760 mlU/mL (0.270-4.200) 02/21/19 20:04 PTH Intact 267.6 pg/mL (15-65) H 03/02/19 05:15 Salicylates < 0.3 mg/dL (2.8-20.0) L 02/21/19 20:04 Acetaminophen < 5.0 ug/mL (10.0-30.0) L 02/21/19 20:04 Hepatitis A IgM Ab Non-reactive (NonReactive) 04/30/19 14:11 Hep Bs Antigen Non-reactive (Negative) 04/30/19 14:11 Hep B Core IgM Ab Non-reactive (NonReactive) 04/30/19 14:11 Hepatitis C Antibody Non-reactive (NonReactive) 04/30/19 14:11 Blood Type O POSITIVE 05/04/19 12:55 Antibody Screen Negative 05/04/19 12:55 Crossmatch See Detail 05/04/19 12:55 Active Medications - Current Medications Current Medications: Generic Name Dose Route Start Last Admin Trade Name Freq PRN Reason Stop Dose Admin Acetaminophen 650 mg 05/18/19 23:33 05/25/19 07:07 Tylenol PO 650 mg Q6HR PRN Administration PAIN Albuterol/Ipratropium 1 ampul 02/24/19 20:00 05/25/19 08:07 Duoneb *Not For Prn Use* IH 1 ampul TIDRT SANCHEZ Administration Lipase/Protease/Amylase 1 each 04/10/19 15:16 Pancreaze 10,500 Unit FEEDTUBE PRN PRN For Clogged Feeding Tube Epoetin Solitario 20,000 unit 03/24/19 11:17 05/22/19 12:11 Procrit IV 20,000 unit UMA PRN Administration hemodialysis Famotidine 20 mg 02/23/19 10:00 05/24/19 09:37 Pepcid PO 20 mg DAILY SANCHEZ Administration Sodium Chloride 100 mls @ 999 mls/hr 05/13/19 12:45 Nacl 0.9% IV UMA PRN Hypotension Insulin Human Regular 0 units 02/26/19 12:00 05/25/19 06:42 Humulin R SUB-Q Not Given Q6HR SANCHEZ Protocol Metoprolol Tartrate 2.5 mg 02/28/19 12:06 03/15/19 05:15 Lopressor IV 2.5 mg Q4HR PRN Administration Tachycardia Risperidone 1 mg 02/25/19 13:00 05/24/19 09:37 Risperdal PO 1 mg DAILY SANCHEZ Administration Sertraline HCl 100 mg 02/25/19 13:00 05/24/19 09:37 Zoloft PO 100 mg DAILY SANCHEZ Administration Simple Syrup 15 ml 04/10/19 15:16 Simple Syrup FEEDTUBE PRN PRN Hypoglycemia Simple Syrup 30 ml 04/10/19 15:16 Simple Syrup FEEDTUBE PRN PRN Hypoglycemia Sodium Bicarbonate 325 mg 04/10/19 15:16 Sodium Bicarbonate FEEDTUBE PRN PRN For Clogged Feeding Tube Sodium Hypochlorite 1 applic 04/01/19 13:00 05/24/19 22:12 Dakin's Half Strength TP 1 applicatio BID SANCHEZ Administration Nutrition/Malnutrition Assess - Dietary Evaluation Nutrition/Malnutrition Findings: Nutrition Notes Start: 02/22/19 12:51 Freq: Status: Active Protocol: Document 05/21/19 12:03 DW (Rec: 05/21/19 12:13 DW [id number]) Co-Sign 05/21/19 12:03 Nutrition Notes Initial or Follow up Reassessment Current Diagnosis CKD (stage V CKD),Diabetes, Hypertension,Heart Failure Other Pertinent Diagnosis Sacral PU, ESRD on HD (T/Thurs /Sat), Schizophrenia,Blind in L eye,S/P trach Current Diet Nepro at 50 ml/hr w/Abhilash BID Labs/Tests POC Glu: 218 Pertinent Medications Reviewed Height 5 ft 10 in Weight 74.7 kg Odin Body Weight (kg) 75.45 BMI 23.6 Weight change and time frame Wt loss noted. Likely d/t fluid change. Subjective/Other Information Upon arrival noted tube feed was running at goal. Per nurse pt is receiving Abhilash Percent of energy/protein needs met: 100%/100% Burn Absent Trauma Absent Minimum of two criteria No #2 Nutrition Diagnosis Increased nutrient needs ( specify in comment below) Diagnosis Progress(for reassessment Continues documentation) #1 Nutrition Diagnosis Inadequate oral intake Diagnosis Progress(for reassessment Continues documentation) Is patient on ventilator? No Is Patient Ambulatory and/or Out of Bed No REE-([place]-St. Jeor-confined to bed) 1857.144 Kcal/Kg value to use for calculation 32 Approximate Energy Requirements Using 2390 kcal/Kg Calculation Used for Recommendations Kcal/kg Additional Notes PRO: 82-103g/day(1.2-1.5g/kg) Fluid: per MD Nutrition Intervention Change Diet Order: Continue TF Nutrition Support: Nepro with Carbsteady 1.8 at 50 ml/hr Flush 200 ml q4hr Kcal 2,160 Protein (gm) 97 Fluid (mL) 872 Add Supplement/Snack (indicate name/kcal Abhilash BID /protein ) Provides kCal: 190 Provides Protein (gm) 5 Goal #1 Continue to meet at least 75% of calorie and protein needs via TF Anticipated Discharge Needs: TF Follow-Up By: 05/28/19 Additional Comments F/U for TF tolereance and Abhilash
[2019-05-25] MEDS: EPOETIN ALFA 20,000 UNIT/1 ML INJ IV PRN (11:08)
--- NOTE | 2019-05-25 12:08 | Progress Note ---
Assessment and Plan 63 y/o male with multiple medical issues admitted with altered mental status, acute respiratory failure requiring mechanical ventilation, now trached, on HD unable to find placement given this combination, now with recurrent fevers. No new recommendations for today. Please see below 1. Continue capping trials. Nasal cannula therapy. 2. HD per renal 3. PT/OT if possible 4. CM working on placement 5. No objection to discharge once placement is found Agree with ID note. Patient is a DNR. He is not to be placed back on the ventilator. Acetinetobacter was seen in lungs last time, most likely could resurface their again. Remainder for those who are not as familiar with this case. Patient has been in the hospital on this particular stay almost 3 months. Subjective Date of service: 05/25/19 Principal diagnosis: Respiratory failure, acute on chronic systolic HF, ESRD Interval history: No acute events. Pulm status remains unchanged. Objective Vital Signs - 12hr 05/25/19 05/25/19 05/25/19 03:10 05:28 08:07 Temperature 100.3 F H Pulse Rate 102 H Pulse Rate [ 114 H Anterior Bilateral Throughout] Respiratory 18 Rate Respiratory 18 Rate [Anterior Bilateral Throughout] Blood Pressure 129/54 O2 Sat by Pulse 96 Oximetry O2 Sat by Pulse 96 Oximetry [ Assessment] 05/25/19 05/25/19 05/25/19 09:20 09:30 09:45 Temperature 99.4 F Pulse Rate 109 H 109 H 102 H Pulse Rate [ Anterior Bilateral Throughout] Respiratory 14 Rate Respiratory Rate [Anterior Bilateral Throughout] Blood Pressure 119/66 119/66 116/65 O2 Sat by Pulse Oximetry O2 Sat by Pulse Oximetry [ Assessment] 05/25/19 05/25/19 05/25/19 10:00 10:15 10:30 Temperature Pulse Rate 103 H 96 H 107 H Pulse Rate [ Anterior Bilateral Throughout] Respiratory Rate Respiratory Rate [Anterior Bilateral Throughout] Blood Pressure 117/66 123/70 117/57 O2 Sat by Pulse Oximetry O2 Sat by Pulse Oximetry [ Assessment] 05/25/19 05/25/19 05/25/19 10:45 11:00 11:15 Temperature Pulse Rate 99 H 104 H 90 Pulse Rate [ Anterior Bilateral Throughout] Respiratory Rate Respiratory Rate [Anterior Bilateral Throughout] Blood Pressure 139/55 116/55 108/52 O2 Sat by Pulse Oximetry O2 Sat by Pulse Oximetry [ Assessment] 05/25/19 05/25/19 11:30 11:45 Temperature Pulse Rate 104 H 98 H Pulse Rate [ Anterior Bilateral Throughout] Respiratory Rate Respiratory Rate [Anterior Bilateral Throughout] Blood Pressure 110/51 116/64 O2 Sat by Pulse Oximetry O2 Sat by Pulse Oximetry [ Assessment] Constitutional: no acute distress, other (agitated) Eyes: non-icteric ENT: oropharynx moist Neck: supple, other (tracheostomy tube noted) Effort: normal Ascultation: Bilateral: diminished breath sounds, other (coarse BS bilaterally) Percussion: Bilateral: not dull Cardiovascular: regular rate and rhythm (no mrg) Gastrointestinal: normoactive bowel sounds, soft, non-tender, non-distended, other (ostomy in place, brown stool) Extremities: no cyanosis, no edema, pink and warm Neurologic: other (mild weakness LUE, o/w nonfocal) Psychiatric: other (unable to assess) CBC and BMP: 05/19/19 01:00 05/19/19 01:00 ABG, PT/INR, D-dimer: ABG POC ABG pH 7.510 (7.35-7.45) H 03/18/19 06:38 ABG pH 7.424 pH Units (7.350-7.450) 03/19/19 04:23 POC ABG pCO2 38.9 (35-45) 03/18/19 06:38 ABG pCO2 48.0 mm Hg 03/19/19 04:23 POC ABG pO2 164 (80-105) H 03/18/19 06:38 ABG pO2 78.3 mm Hg (80.0-90.0) L 03/19/19 04:23 POC ABG HCO3 31.0 (22-26 mml/L) 03/18/19 06:38 POC ABG Total CO2 32 (23-27mmol/L) 03/18/19 06:38 POC ABG O2 Sat 100 03/18/19 06:38 ABG O2 Saturation 97.0 % (95.0-99.0) 03/19/19 04:23 PT/INR, D-dimer PT 16.3 Sec. (12.2-14.9) H 03/01/19 09:39 INR 1.35 (0.87-1.13) H 03/01/19 09:39 D-Dimer 2987.82 ng/mlDDU (0-234) H 02/22/19 05:54 Abnormal lab findings: Abnormal Labs 02/21/19 02/21/19 02/21/19 18:30 18:30 18:30 WBC RBC 3.26 L Hgb 8.8 L Hct 29.0 L MCV MCH 27 L MCHC 30 L RDW 19.1 H Plt Count Lymph % (Auto) 6.1 L Wheeler % (Auto) Eos % (Auto) Baso % (Auto) Lymph # 0.4 L Wheeler # Eos # Baso # Seg Neutrophils % 86.2 H Seg Neuts % (Manual) Lymphocytes % (Manual) Eosinophils % (Manual) Seg Neutrophils # Lymphocytes # (Manual) Eosinophils # (Manual) PT INR D-Dimer POC ABG pH POC ABG pCO2 POC ABG pO2 ABG pO2 ABG HCO3 ABG Base Excess ABG Hemoglobin Oxyhemoglobin Sodium 133 L Potassium 3.3 L Chloride 93.1 L Carbon Dioxide 33 H BUN Creatinine Glucose 161 H POC Glucose Calcium Phosphorus Magnesium ALT Alkaline Phosphatase 136 H Total Creatine Kinase 37 L CK-MB (CK-2) Rel Index Troponin T 0.192 H* Albumin 2.4 L LDL Cholesterol Direct 36 L PTH Intact Salicylates Acetaminophen Crossmatch 02/21/19 02/21/19 02/21/19 18:42 20:04 20:04 WBC RBC Hgb Hct MCV MCH MCHC RDW Plt Count Lymph % (Auto) Wheeler % (Auto) Eos % (Auto) Baso % (Auto) Lymph # Wheeler # Eos # Baso # Seg Neutrophils % Seg Neuts % (Manual) Lymphocytes % (Manual) Eosinophils % (Manual) Seg Neutrophils # Lymphocytes # (Manual) Eosinophils # (Manual) PT INR D-Dimer POC ABG pH POC ABG pCO2 56.7 H POC ABG pO2 291 H ABG pO2 ABG HCO3 ABG Base Excess ABG Hemoglobin Oxyhemoglobin Sodium Potassium Chloride Carbon Dioxide BUN Creatinine Glucose POC Glucose Calcium Phosphorus Magnesium ALT Alkaline Phosphatase Total Creatine Kinase CK-MB (CK-2) Rel Index Troponin T Albumin LDL Cholesterol Direct PTH Intact Salicylates < 0.3 L Acetaminophen < 5.0 L Crossmatch 02/21/19 02/22/19 02/22/19 22:35 03:42 03:42 WBC RBC 3.20 L Hgb 8.8 L Hct 27.6 L MCV MCH MCHC RDW 18.9 H Plt Count Lymph % (Auto) 7.4 L Wheeler % (Auto) Eos % (Auto) Baso % (Auto) Lymph # 0.7 L Wheeler # Eos # Baso # Seg Neutrophils % 84.7 H Seg Neuts % (Manual) Lymphocytes % (Manual) Eosinophils % (Manual) Seg Neutrophils # Lymphocytes # (Manual) Eosinophils # (Manual) PT INR D-Dimer POC ABG pH POC ABG pCO2 POC ABG pO2 ABG pO2 ABG HCO3 ABG Base Excess ABG Hemoglobin Oxyhemoglobin Sodium 134 L Potassium 2.6 L* D Chloride Carbon Dioxide BUN Creatinine Glucose POC Glucose Calcium Phosphorus Magnesium ALT Alkaline Phosphatase Total Creatine Kinase CK-MB (CK-2) Rel Index 5.2 H Troponin T 0.202 H* Albumin LDL Cholesterol Direct PTH Intact Salicylates Acetaminophen Crossmatch 02/22/19 02/22/19 02/22/19 03:42 05:54 09:04 WBC RBC Hgb Hct MCV MCH MCHC RDW Plt Count Lymph % (Auto) Wheeler % (Auto) Eos % (Auto) Baso % (Auto) Lymph # Wheeler # Eos # Baso # Seg Neutrophils % Seg Neuts % (Manual) Lymphocytes % (Manual) Eosinophils % (Manual) Seg Neutrophils # Lymphocytes # (Manual) Eosinophils # (Manual) PT INR D-Dimer 2987.82 H POC ABG pH 7.451 H POC ABG pCO2 POC ABG pO2 ABG pO2 ABG HCO3 ABG Base Excess ABG Hemoglobin Oxyhemoglobin Sodium Potassium Chloride Carbon Dioxide BUN Creatinine Glucose POC Glucose Calcium Phosphorus Magnesium ALT Alkaline Phosphatase Total Creatine Kinase CK-MB (CK-2) Rel Index 5.7 H Troponin T 0.193 H* Albumin LDL Cholesterol Direct PTH Intact Salicylates Acetaminophen Crossmatch 02/22/19 02/22/19 02/23/19 10:36 23:56 00:52 WBC RBC Hgb Hct MCV MCH MCHC RDW Plt Count Lymph % (Auto) [place] % (Auto) Eos % (Auto) Baso % (Auto) Lymph # Wheeler # Eos # Baso # Seg Neutrophils % Seg Neuts % (Manual) Lymphocytes % (Manual) Eosinophils % (Manual) Seg Neutrophils # Lymphocytes # (Manual) Eosinophils # (Manual) PT INR D-Dimer POC ABG pH POC ABG pCO2 POC ABG pO2 ABG pO2 ABG HCO3 ABG Base Excess ABG Hemoglobin Oxyhemoglobin Sodium Potassium 3.1 L Chloride Carbon Dioxide BUN Creatinine Glucose POC Glucose 58 L 111 H Calcium Phosphorus Magnesium ALT Alkaline Phosphatase Total Creatine Kinase CK-MB (CK-2) Rel Index Troponin T Albumin LDL Cholesterol Direct PTH Intact Salicylates Acetaminophen Crossmatch 02/23/19 02/23/19 02/23/19 05:00 06:35 14:26 WBC RBC Hgb Hct MCV MCH MCHC RDW Plt Count Lymph % (Auto) Wheeler % (Auto) Eos % (Auto) Baso % (Auto) Lymph # Wheeler # Eos # Baso # Seg Neutrophils % Seg Neuts % (Manual) Lymphocytes % (Manual) Eosinophils % (Manual) Seg Neutrophils # Lymphocytes # (Manual) Eosinophils # (Manual) PT INR D-Dimer POC ABG pH POC ABG pCO2 POC ABG pO2 ABG pO2 ABG HCO3 ABG Base Excess ABG Hemoglobin Oxyhemoglobin Sodium 135 L Potassium 3.1 L Chloride Carbon Dioxide BUN 21 H Creatinine 2.0 H Glucose 57 L POC Glucose 64 L 62 L Calcium Phosphorus Magnesium ALT Alkaline Phosphatase Total Creatine Kinase CK-MB (CK-2) Rel Index Troponin T Albumin LDL Cholesterol Direct PTH Intact Salicylates Acetaminophen Crossmatch 02/24/19 02/24/19 02/24/19 02:11 04:12 04:55 WBC RBC 2.84 L Hgb 7.8 L Hct 24.5 L MCV MCH MCHC RDW 19.5 H Plt Count Lymph % (Auto) Wheeler % (Auto) Eos % (Auto) Baso % (Auto) Lymph # Wheeler # Eos # Baso # Seg Neutrophils % Seg Neuts % (Manual) Lymphocytes % (Manual) Eosinophils % (Manual) Seg Neutrophils # Lymphocytes # (Manual) Eosinophils # (Manual) PT INR D-Dimer POC ABG pH 7.511 H POC ABG pCO2 33.9 L POC ABG pO2 62 L ABG pO2 ABG HCO3 ABG Base Excess ABG Hemoglobin Oxyhemoglobin Sodium Potassium Chloride Carbon Dioxide BUN Creatinine Glucose POC Glucose 69 L Calcium Phosphorus Magnesium ALT Alkaline Phosphatase Total Creatine Kinase CK-MB (CK-2) Rel Index Troponin T Albumin LDL Cholesterol Direct PTH Intact Salicylates Acetaminophen Crossmatch 02/24/19 02/24/19 02/25/19 04:55 05:41 04:45 WBC RBC Hgb Hct MCV MCH MCHC RDW Plt Count Lymph % (Auto) [place] % (Auto) Eos % (Auto) Baso % (Auto) Lymph # Wheeler # Eos # Baso # Seg Neutrophils % Seg Neuts % (Manual) Lymphocytes % (Manual) Eosinophils % (Manual) Seg Neutrophils # Lymphocytes # (Manual) Eosinophils # (Manual) PT INR D-Dimer POC ABG pH 7.466 H POC ABG pCO2 POC ABG pO2 75 L ABG pO2 ABG HCO3 ABG Base Excess ABG Hemoglobin Oxyhemoglobin Sodium Potassium Chloride Carbon Dioxide BUN Creatinine 1.8 H Glucose 73 L POC Glucose 127 H Calcium Phosphorus Magnesium ALT Alkaline Phosphatase Total Creatine Kinase CK-MB (CK-2) Rel Index Troponin T Albumin LDL Cholesterol Direct PTH Intact Salicylates Acetaminophen Crossmatch 02/25/19 02/25/19 02/26/19 16:34 21:33 03:45 WBC RBC 2.96 L Hgb 8.0 L Hct 25.8 L MCV MCH 27 L MCHC 31 L RDW 20.0 H Plt Count Lymph % (Auto) [place] % (Auto) Eos % (Auto) Baso % (Auto) Lymph # Wheeler # Eos # Baso # Seg Neutrophils % Seg Neuts % (Manual) Lymphocytes % (Manual) Eosinophils % (Manual) Seg Neutrophils # Lymphocytes # (Manual) Eosinophils # (Manual) PT INR D-Dimer POC ABG pH POC ABG pCO2 POC ABG pO2 ABG pO2 ABG HCO3 ABG Base Excess ABG Hemoglobin Oxyhemoglobin Sodium Potassium Chloride Carbon Dioxide BUN Creatinine Glucose POC Glucose 141 H 106 H Calcium Phosphorus Magnesium ALT Alkaline Phosphatase Total Creatine Kinase CK-MB (CK-2) Rel Index Troponin T Albumin LDL Cholesterol Direct PTH Intact Salicylates Acetaminophen Crossmatch 02/26/19 02/26/19 02/26/19 03:45 04:13 07:53 WBC RBC Hgb Hct MCV MCH MCHC RDW Plt Count Lymph % (Auto) [place] % (Auto) Eos % (Auto) Baso % (Auto) Lymph # Wheeler # Eos # Baso # Seg Neutrophils % Seg Neuts % (Manual) Lymphocytes % (Manual) Eosinophils % (Manual) Seg Neutrophils # Lymphocytes # (Manual) Eosinophils # (Manual) PT INR D-Dimer POC ABG pH 7.470 H POC ABG pCO2 POC ABG pO2 ABG pO2 ABG HCO3 ABG Base Excess ABG Hemoglobin Oxyhemoglobin Sodium Potassium Chloride Carbon Dioxide BUN Creatinine 1.8 H Glucose POC Glucose 110 H Calcium Phosphorus Magnesium ALT Alkaline Phosphatase Total Creatine Kinase CK-MB (CK-2) Rel Index Troponin T Albumin LDL Cholesterol Direct PTH Intact Salicylates Acetaminophen Crossmatch 02/26/19 02/26/19 02/27/19 11:56 17:43 00:12 WBC RBC Hgb Hct MCV MCH MCHC RDW Plt Count Lymph % (Auto) [place] % (Auto) Eos % (Auto) Baso % (Auto) Lymph # Wheeler # Eos # Baso # Seg Neutrophils % Seg Neuts % (Manual) Lymphocytes % (Manual) Eosinophils % (Manual) Seg Neutrophils # Lymphocytes # (Manual) Eosinophils # (Manual) PT INR D-Dimer POC ABG pH POC ABG pCO2 POC ABG pO2 ABG pO2 ABG HCO3 ABG Base Excess ABG Hemoglobin Oxyhemoglobin Sodium Potassium Chloride Carbon Dioxide BUN Creatinine Glucose POC Glucose 112 H 127 H 127 H Calcium Phosphorus Magnesium ALT Alkaline Phosphatase Total Creatine Kinase CK-MB (CK-2) Rel Index Troponin T Albumin LDL Cholesterol Direct PTH Intact Salicylates Acetaminophen Crossmatch 02/27/19 02/27/19 02/27/19 04:35 13:15 18:02 WBC RBC Hgb Hct MCV MCH MCHC RDW Plt Count Lymph % (Auto) [place] % (Auto) Eos % (Auto) Baso % (Auto) Lymph # Wheeler # Eos # Baso # Seg Neutrophils % Seg Neuts % (Manual) Lymphocytes % (Manual) Eosinophils % (Manual) Seg Neutrophils # Lymphocytes # (Manual) Eosinophils # (Manual) PT INR D-Dimer POC ABG pH 7.483 H POC ABG pCO2 POC ABG pO2 61 L ABG pO2 ABG HCO3 ABG Base Excess ABG Hemoglobin Oxyhemoglobin Sodium Potassium Chloride Carbon Dioxide BUN Creatinine Glucose POC Glucose 143 H 106 H Calcium Phosphorus Magnesium ALT Alkaline Phosphatase Total Creatine Kinase CK-MB (CK-2) Rel Index Troponin T Albumin LDL Cholesterol Direct PTH Intact Salicylates Acetaminophen Crossmatch 02/28/19 02/28/19 02/28/19 05:50 11:59 17:52 WBC RBC Hgb Hct MCV MCH MCHC RDW Plt Count Lymph % (Auto) [place] % (Auto) Eos % (Auto) Baso % (Auto) Lymph # Wheeler # Eos # Baso # Seg Neutrophils % Seg Neuts % (Manual) Lymphocytes % (Manual) Eosinophils % (Manual) Seg Neutrophils # Lymphocytes # (Manual) Eosinophils # (Manual) PT INR D-Dimer POC ABG pH POC ABG pCO2 POC ABG pO2 ABG pO2 ABG HCO3 ABG Base Excess ABG Hemoglobin Oxyhemoglobin Sodium Potassium Chloride Carbon Dioxide BUN Creatinine Glucose POC Glucose 134 H 128 H 142 H Calcium Phosphorus Magnesium ALT Alkaline Phosphatase Total Creatine Kinase CK-MB (CK-2) Rel Index Troponin T Albumin LDL Cholesterol Direct PTH Intact Salicylates Acetaminophen Crossmatch 02/28/19 03/01/19 03/01/19 23:13 05:40 09:39 WBC RBC Hgb Hct MCV MCH MCHC RDW Plt Count Lymph % (Auto) [place] % (Auto) Eos % (Auto) Baso % (Auto) Lymph # Wheeler # Eos # Baso # Seg Neutrophils % Seg Neuts % (Manual) Lymphocytes % (Manual) Eosinophils % (Manual) Seg Neutrophils # Lymphocytes # (Manual) Eosinophils # (Manual) PT 16.3 H INR 1.35 H D-Dimer POC ABG pH POC ABG pCO2 POC ABG pO2 ABG pO2 ABG HCO3 ABG Base Excess ABG Hemoglobin Oxyhemoglobin Sodium Potassium Chloride Carbon Dioxide BUN Creatinine Glucose POC Glucose 112 H 111 H Calcium Phosphorus Magnesium ALT Alkaline Phosphatase Total Creatine Kinase CK-MB (CK-2) Rel Index Troponin T Albumin LDL Cholesterol Direct PTH Intact Salicylates Acetaminophen Crossmatch 03/01/19 03/01/19 03/01/19 11:56 13:54 17:59 WBC RBC Hgb Hct MCV MCH MCHC RDW Plt Count Lymph % (Auto) [place] % (Auto) Eos % (Auto) Baso % (Auto) Lymph # Wheeler # Eos # Baso # Seg Neutrophils % Seg Neuts % (Manual) Lymphocytes % (Manual) Eosinophils % (Manual) Seg Neutrophils # Lymphocytes # (Manual) Eosinophils # (Manual) PT INR D-Dimer POC ABG pH POC ABG pCO2 POC ABG pO2 ABG pO2 ABG HCO3 ABG Base Excess ABG Hemoglobin Oxyhemoglobin Sodium Potassium Chloride Carbon Dioxide BUN 33 H Creatinine 2.8 H D Glucose 176 H POC Glucose 199 H 147 H Calcium Phosphorus Magnesium ALT Alkaline Phosphatase Total Creatine Kinase CK-MB (CK-2) Rel Index Troponin T Albumin LDL Cholesterol Direct PTH Intact Salicylates Acetaminophen Crossmatch 03/02/19 03/02/19 03/02/19 05:15 05:15 05:15 WBC RBC 2.73 L Hgb 7.4 L Hct 23.0 L MCV MCH 27 L MCHC RDW 19.9 H Plt Count Lymph % (Auto) Wheeler % (Auto) 7.9 H Eos % (Auto) 7.6 H Baso % (Auto) Lymph # 1.0 L Wheeler # Eos # 0.5 H Baso # Seg Neutrophils % Seg Neuts % (Manual) Lymphocytes % (Manual) Eosinophils % (Manual) Seg Neutrophils # Lymphocytes # (Manual) Eosinophils # (Manual) PT INR D-Dimer POC ABG pH POC ABG pCO2 POC ABG pO2 ABG pO2 ABG HCO3 ABG Base Excess ABG Hemoglobin Oxyhemoglobin Sodium Potassium Chloride Carbon Dioxide BUN 43 H Creatinine 3.2 H Glucose POC Glucose Calcium Phosphorus 2.30 L Magnesium ALT Alkaline Phosphatase Total Creatine Kinase CK-MB (CK-2) Rel Index Troponin T Albumin LDL Cholesterol Direct PTH Intact 267.6 H Salicylates Acetaminophen Crossmatch 03/02/19 03/02/19 03/03/19 12:32 18:20 13:30 WBC RBC Hgb Hct MCV MCH MCHC RDW Plt Count Lymph % (Auto) [place] % (Auto) Eos % (Auto) Baso % (Auto) Lymph # Wheeler # Eos # Baso # Seg Neutrophils % Seg Neuts % (Manual) Lymphocytes % (Manual) Eosinophils % (Manual) Seg Neutrophils # Lymphocytes # (Manual) Eosinophils # (Manual) PT INR D-Dimer POC ABG pH POC ABG pCO2 POC ABG pO2 ABG pO2 ABG HCO3 ABG Base Excess ABG Hemoglobin Oxyhemoglobin Sodium Potassium Chloride 97.3 L Carbon Dioxide BUN 26 H Creatinine 2.2 H Glucose 73 L POC Glucose 111 H 156 H Calcium Phosphorus Magnesium ALT Alkaline Phosphatase Total Creatine Kinase CK-MB (CK-2) Rel Index Troponin T Albumin LDL Cholesterol Direct PTH Intact Salicylates Acetaminophen Crossmatch 03/04/19 03/04/19 03/04/19 00:02 05:37 05:40 WBC RBC 2.63 L Hgb 7.2 L Hct 22.2 L MCV MCH MCHC RDW 20.2 H Plt Count Lymph % (Auto) 10.5 L Wheeler % (Auto) Eos % (Auto) 4.6 H Baso % (Auto) Lymph # 0.7 L Wheeler # Eos # Baso # Seg Neutrophils % 76.9 H Seg Neuts % (Manual) Lymphocytes % (Manual) Eosinophils % (Manual) Seg Neutrophils # Lymphocytes # (Manual) Eosinophils # (Manual) PT INR D-Dimer POC ABG pH POC ABG pCO2 POC ABG pO2 ABG pO2 ABG HCO3 ABG Base Excess ABG Hemoglobin Oxyhemoglobin Sodium Potassium Chloride Carbon Dioxide BUN Creatinine Glucose POC Glucose 136 H 123 H Calcium Phosphorus Magnesium ALT Alkaline Phosphatase Total Creatine Kinase CK-MB (CK-2) Rel Index Troponin T Albumin LDL Cholesterol Direct PTH Intact Salicylates Acetaminophen Crossmatch 03/04/19 03/04/19 03/04/19 05:40 11:39 23:20 WBC RBC Hgb Hct MCV MCH MCHC RDW Plt Count Lymph % (Auto) [place] % (Auto) Eos % (Auto) Baso % (Auto) Lymph # Wheeler # Eos # Baso # Seg Neutrophils % Seg Neuts % (Manual) Lymphocytes % (Manual) Eosinophils % (Manual) Seg Neutrophils # Lymphocytes # (Manual) Eosinophils # (Manual) PT INR D-Dimer POC ABG pH POC ABG pCO2 POC ABG pO2 ABG pO2 ABG HCO3 ABG Base Excess ABG Hemoglobin Oxyhemoglobin Sodium Potassium Chloride Carbon Dioxide BUN 34 H Creatinine 2.7 H Glucose 114 H POC Glucose 175 H 151 H Calcium Phosphorus Magnesium ALT Alkaline Phosphatase Total Creatine Kinase CK-MB (CK-2) Rel Index Troponin T Albumin LDL Cholesterol Direct PTH Intact Salicylates Acetaminophen Crossmatch 03/05/19 03/05/19 03/05/19 05:37 12:08 17:11 WBC RBC Hgb Hct MCV MCH MCHC RDW Plt Count Lymph % (Auto) [place] % (Auto) Eos % (Auto) Baso % (Auto) Lymph # Wheeler # Eos # Baso # Seg Neutrophils % Seg Neuts % (Manual) Lymphocytes % (Manual) Eosinophils % (Manual) Seg Neutrophils # Lymphocytes # (Manual) Eosinophils # (Manual) PT INR D-Dimer POC ABG pH POC ABG pCO2 POC ABG pO2 ABG pO2 ABG HCO3 ABG Base Excess ABG Hemoglobin Oxyhemoglobin Sodium Potassium Chloride Carbon Dioxide BUN Creatinine Glucose POC Glucose 134 H 135 H 135 H Calcium Phosphorus Magnesium ALT Alkaline Phosphatase Total Creatine Kinase CK-MB (CK-2) Rel Index Troponin T Albumin LDL Cholesterol Direct PTH Intact Salicylates Acetaminophen Crossmatch 03/06/19 03/06/19 03/06/19 00:16 13:05 18:09 WBC RBC Hgb Hct MCV MCH MCHC RDW Plt Count Lymph % (Auto) [place] % (Auto) Eos % (Auto) Baso % (Auto) Lymph # Wheeler # Eos # Baso # Seg Neutrophils % Seg Neuts % (Manual) Lymphocytes % (Manual) Eosinophils % (Manual) Seg Neutrophils # Lymphocytes # (Manual) Eosinophils # (Manual) PT INR D-Dimer POC ABG pH POC ABG pCO2 POC ABG pO2 ABG pO2 ABG HCO3 ABG Base Excess ABG Hemoglobin Oxyhemoglobin Sodium Potassium Chloride Carbon Dioxide BUN Creatinine Glucose POC Glucose 117 H 113 H 131 H Calcium Phosphorus Magnesium ALT Alkaline Phosphatase Total Creatine Kinase CK-MB (CK-2) Rel Index Troponin T Albumin LDL Cholesterol Direct PTH Intact Salicylates Acetaminophen Crossmatch 03/07/19 03/08/19 03/08/19 05:25 05:33 16:00 WBC RBC 2.44 L Hgb 6.6 L Hct 20.8 L MCV MCH 27 L MCHC RDW 19.2 H Plt Count Lymph % (Auto) Wheeler % (Auto) Eos % (Auto) 8.6 H Baso % (Auto) Lymph # 0.8 L Wheeler # Eos # 0.5 H Baso # Seg Neutrophils % 70.7 H Seg Neuts % (Manual) Lymphocytes % (Manual) Eosinophils % (Manual) Seg Neutrophils # Lymphocytes # (Manual) Eosinophils # (Manual) PT INR D-Dimer POC ABG pH POC ABG pCO2 POC ABG pO2 ABG pO2 ABG HCO3 ABG Base Excess ABG Hemoglobin Oxyhemoglobin Sodium Potassium Chloride Carbon Dioxide BUN Creatinine Glucose POC Glucose 106 H 108 H Calcium Phosphorus Magnesium ALT Alkaline Phosphatase Total Creatine Kinase CK-MB (CK-2) Rel Index Troponin T Albumin LDL Cholesterol Direct PTH Intact Salicylates Acetaminophen Crossmatch 03/08/19 03/08/19 03/08/19 16:00 18:38 Unknown WBC RBC Hgb Hct MCV MCH MCHC RDW Plt Count Lymph % (Auto) [place] % (Auto) Eos % (Auto) Baso % (Auto) Lymph # Wheeler # Eos # Baso # Seg Neutrophils % Seg Neuts % (Manual) Lymphocytes % (Manual) Eosinophils % (Manual) Seg Neutrophils # Lymphocytes # (Manual) Eosinophils # (Manual) PT INR D-Dimer POC ABG pH POC ABG pCO2 POC ABG pO2 ABG pO2 ABG HCO3 ABG Base Excess ABG Hemoglobin Oxyhemoglobin Sodium Potassium 5.4 H D Chloride Carbon Dioxide BUN 47 H Creatinine 2.6 H Glucose POC Glucose 123 H Calcium Phosphorus Magnesium ALT < 5 L Alkaline Phosphatase Total Creatine Kinase CK-MB (CK-2) Rel Index Troponin T Albumin 2.2 L LDL Cholesterol Direct PTH Intact Salicylates Acetaminophen Crossmatch See Detail 03/09/19 03/09/19 03/09/19 10:48 12:28 13:53 WBC RBC 2.85 L Hgb 7.7 L Hct 24.2 L MCV MCH 27 L MCHC RDW 18.7 H Plt Count Lymph % (Auto) [place] % (Auto) Eos % (Auto) Baso % (Auto) Lymph # Wheeler # Eos # Baso # Seg Neutrophils % Seg Neuts % (Manual) Lymphocytes % (Manual) Eosinophils % (Manual) Seg Neutrophils # Lymphocytes # (Manual) Eosinophils # (Manual) PT INR D-Dimer POC ABG pH POC ABG pCO2 POC ABG pO2 ABG pO2 ABG HCO3 30.5 H ABG Base Excess 5.6 H ABG Hemoglobin 8.1 L Oxyhemoglobin 93.8 L Sodium Potassium Chloride Carbon Dioxide BUN Creatinine Glucose POC Glucose 114 H Calcium Phosphorus Magnesium ALT Alkaline Phosphatase Total Creatine Kinase CK-MB (CK-2) Rel Index Troponin T Albumin LDL Cholesterol Direct PTH Intact Salicylates Acetaminophen Crossmatch 03/09/19 03/09/19 03/10/19 17:58 23:53 12:01 WBC RBC Hgb Hct MCV MCH MCHC RDW Plt Count Lymph % (Auto) [place] % (Auto) Eos % (Auto) Baso % (Auto) Lymph # [place] # Eos # Baso # Seg Neutrophils % Seg Neuts % (Manual) Lymphocytes % (Manual) Eosinophils % (Manual) Seg Neutrophils # Lymphocytes # (Manual) Eosinophils # (Manual) PT INR D-Dimer POC ABG pH POC ABG pCO2 POC ABG pO2 ABG pO2 ABG HCO3 ABG Base Excess ABG Hemoglobin Oxyhemoglobin Sodium Potassium Chloride Carbon Dioxide BUN Creatinine Glucose POC Glucose 108 H 128 H 144 H Calcium Phosphorus Magnesium ALT Alkaline Phosphatase Total Creatine Kinase CK-MB (CK-2) Rel Index Troponin T Albumin LDL Cholesterol Direct PTH Intact Salicylates Acetaminophen Crossmatch 03/10/19 03/11/19 03/11/19 16:50 00:24 05:02 WBC RBC Hgb Hct MCV MCH MCHC RDW Plt Count Lymph % (Auto) [place] % (Auto) Eos % (Auto) Baso % (Auto) Lymph # [place] # Eos # Baso # Seg Neutrophils % Seg Neuts % (Manual) Lymphocytes % (Manual) Eosinophils % (Manual) Seg Neutrophils # Lymphocytes # (Manual) Eosinophils # (Manual) PT INR D-Dimer POC ABG pH POC ABG pCO2 POC ABG pO2 ABG pO2 ABG HCO3 ABG Base Excess ABG Hemoglobin Oxyhemoglobin Sodium Potassium Chloride Carbon Dioxide BUN Creatinine Glucose POC Glucose 147 H 123 H 120 H Calcium Phosphorus Magnesium ALT Alkaline Phosphatase Total Creatine Kinase CK-MB (CK-2) Rel Index Troponin T Albumin LDL Cholesterol Direct PTH Intact Salicylates Acetaminophen Crossmatch 03/11/19 03/11/19 03/11/19 11:56 12:20 18:37 WBC RBC Hgb Hct MCV MCH MCHC RDW Plt Count Lymph % (Auto) Wheeler % (Auto) Eos % (Auto) Baso % (Auto) Lymph # Wheeler # Eos # Baso # Seg Neutrophils % Seg Neuts % (Manual) Lymphocytes % (Manual) Eosinophils % (Manual) Seg Neutrophils # Lymphocytes # (Manual) Eosinophils # (Manual) PT INR D-Dimer POC ABG pH POC ABG pCO2 POC ABG pO2 ABG pO2 ABG HCO3 ABG Base Excess ABG Hemoglobin Oxyhemoglobin Sodium Potassium 5.2 H Chloride Carbon Dioxide BUN Creatinine Glucose POC Glucose 123 H 125 H Calcium Phosphorus Magnesium ALT Alkaline Phosphatase Total Creatine Kinase CK-MB (CK-2) Rel Index Troponin T Albumin LDL Cholesterol Direct PTH Intact Salicylates Acetaminophen Crossmatch 03/11/19 03/12/19 03/12/19 22:52 12:04 18:25 WBC RBC Hgb Hct MCV MCH MCHC RDW Plt Count Lymph % (Auto) Wheeler % (Auto) Eos % (Auto) Baso % (Auto) Lymph # [place] # Eos # Baso # Seg Neutrophils % Seg Neuts % (Manual) Lymphocytes % (Manual) Eosinophils % (Manual) Seg Neutrophils # Lymphocytes # (Manual) Eosinophils # (Manual) PT INR D-Dimer POC ABG pH POC ABG pCO2 POC ABG pO2 ABG pO2 ABG HCO3 ABG Base Excess ABG Hemoglobin Oxyhemoglobin Sodium Potassium Chloride Carbon Dioxide BUN Creatinine Glucose POC Glucose 110 H 106 H 118 H Calcium Phosphorus Magnesium ALT Alkaline Phosphatase Total Creatine Kinase CK-MB (CK-2) Rel Index Troponin T Albumin LDL Cholesterol Direct PTH Intact Salicylates Acetaminophen Crossmatch 03/12/19 03/13/19 03/13/19 23:36 04:38 04:38 WBC RBC 2.95 L Hgb 7.9 L Hct 24.9 L MCV MCH 27 L MCHC RDW 19.9 H Plt Count Lymph % (Auto) 11.1 L [place] % (Auto) 8.1 H Eos % (Auto) 4.4 H Baso % (Auto) Lymph # 0.9 L [place] # Eos # Baso # Seg Neutrophils % 75.4 H Seg Neuts % (Manual) Lymphocytes % (Manual) Eosinophils % (Manual) Seg Neutrophils # Lymphocytes # (Manual) Eosinophils # (Manual) PT INR D-Dimer POC ABG pH POC ABG pCO2 POC ABG pO2 ABG pO2 ABG HCO3 ABG Base Excess ABG Hemoglobin Oxyhemoglobin Sodium 136 L Potassium 5.1 H Chloride 93.8 L Carbon Dioxide BUN 48 H Creatinine 2.7 H Glucose 102 H POC Glucose 115 H Calcium Phosphorus Magnesium ALT < 5 L Alkaline Phosphatase 143 H Total Creatine Kinase CK-MB (CK-2) Rel Index Troponin T Albumin 2.5 L LDL Cholesterol Direct PTH Intact Salicylates Acetaminophen Crossmatch 03/13/19 03/13/19 03/13/19 05:33 13:37 18:03 WBC RBC Hgb Hct MCV MCH MCHC RDW Plt Count Lymph % (Auto) [place] % (Auto) Eos % (Auto) Baso % (Auto) Lymph # [place] # Eos # Baso # Seg Neutrophils % Seg Neuts % (Manual) Lymphocytes % (Manual) Eosinophils % (Manual) Seg Neutrophils # Lymphocytes # (Manual) Eosinophils # (Manual) PT INR D-Dimer POC ABG pH POC ABG pCO2 POC ABG pO2 ABG pO2 ABG HCO3 ABG Base Excess ABG Hemoglobin Oxyhemoglobin Sodium Potassium Chloride Carbon Dioxide BUN Creatinine Glucose POC Glucose 140 H 150 H 158 H Calcium Phosphorus Magnesium ALT Alkaline Phosphatase Total Creatine Kinase CK-MB (CK-2) Rel Index Troponin T Albumin LDL Cholesterol Direct PTH Intact Salicylates Acetaminophen Crossmatch 03/13/19 03/14/19 03/14/19 23:32 05:24 12:20 WBC RBC Hgb Hct MCV MCH MCHC RDW Plt Count Lymph % (Auto) [place] % (Auto) Eos % (Auto) Baso % (Auto) Lymph # [place] # Eos # Baso # Seg Neutrophils % Seg Neuts % (Manual) Lymphocytes % (Manual) Eosinophils % (Manual) Seg Neutrophils # Lymphocytes # (Manual) Eosinophils # (Manual) PT INR D-Dimer POC ABG pH POC ABG pCO2 POC ABG pO2 ABG pO2 ABG HCO3 ABG Base Excess ABG Hemoglobin Oxyhemoglobin Sodium Potassium Chloride Carbon Dioxide BUN Creatinine Glucose POC Glucose 162 H 146 H 127 H Calcium Phosphorus Magnesium ALT Alkaline Phosphatase Total Creatine Kinase CK-MB (CK-2) Rel Index Troponin T Albumin LDL Cholesterol Direct PTH Intact Salicylates Acetaminophen Crossmatch 03/14/19 03/14/19 03/15/19 18:05 23:57 04:38 WBC 12.8 H RBC 3.11 L Hgb 8.1 L Hct 26.5 L MCV MCH 26 L MCHC 31 L RDW 19.7 H Plt Count Lymph % (Auto) 4.4 L [place] % (Auto) 7.4 H Eos % (Auto) Baso % (Auto) Lymph # 0.6 L [place] # 0.9 H Eos # Baso # Seg Neutrophils % 87.3 H Seg Neuts % (Manual) Lymphocytes % (Manual) Eosinophils % (Manual) Seg Neutrophils # 11.2 H Lymphocytes # (Manual) Eosinophils # (Manual) PT INR D-Dimer POC ABG pH POC ABG pCO2 POC ABG pO2 ABG pO2 ABG HCO3 ABG Base Excess ABG Hemoglobin Oxyhemoglobin Sodium Potassium Chloride Carbon Dioxide BUN Creatinine Glucose POC Glucose 142 H 155 H Calcium Phosphorus Magnesium ALT Alkaline Phosphatase Total Creatine Kinase CK-MB (CK-2) Rel Index Troponin T Albumin LDL Cholesterol Direct PTH Intact Salicylates Acetaminophen Crossmatch 03/15/19 03/15/19 03/15/19 04:38 05:31 11:32 WBC RBC Hgb Hct MCV MCH MCHC RDW Plt Count Lymph % (Auto) [place] % (Auto) Eos % (Auto) Baso % (Auto) Lymph # [place] # Eos # Baso # Seg Neutrophils % Seg Neuts % (Manual) Lymphocytes % (Manual) Eosinophils % (Manual) Seg Neutrophils # Lymphocytes # (Manual) Eosinophils # (Manual) PT INR D-Dimer POC ABG pH POC ABG pCO2 POC ABG pO2 ABG pO2 ABG HCO3 ABG Base Excess ABG Hemoglobin Oxyhemoglobin Sodium 135 L Potassium Chloride 91.9 L Carbon Dioxide BUN 54 H Creatinine 2.8 H Glucose 128 H POC Glucose 160 H 109 H Calcium 11.1 H Phosphorus Magnesium ALT Alkaline Phosphatase 161 H Total Creatine Kinase CK-MB (CK-2) Rel Index Troponin T Albumin 2.3 L LDL Cholesterol Direct PTH Intact Salicylates Acetaminophen Crossmatch 03/15/19 03/15/19 03/16/19 18:15 23:41 05:40 WBC RBC Hgb Hct MCV MCH MCHC RDW Plt Count Lymph % (Auto) [place] % (Auto) Eos % (Auto) Baso % (Auto) Lymph # [place] # Eos # Baso # Seg Neutrophils % Seg Neuts % (Manual) Lymphocytes % (Manual) Eosinophils % (Manual) Seg Neutrophils # Lymphocytes # (Manual) Eosinophils # (Manual) PT INR D-Dimer POC ABG pH POC ABG pCO2 POC ABG pO2 ABG pO2 ABG HCO3 ABG Base Excess ABG Hemoglobin Oxyhemoglobin Sodium Potassium Chloride Carbon Dioxide BUN Creatinine Glucose POC Glucose 151 H 110 H 163 H Calcium Phosphorus Magnesium ALT Alkaline Phosphatase Total Creatine Kinase CK-MB (CK-2) Rel Index Troponin T Albumin LDL Cholesterol Direct PTH Intact Salicylates Acetaminophen Crossmatch 03/16/19 03/16/19 03/16/19 11:55 17:04 23:58 WBC RBC Hgb Hct MCV MCH MCHC RDW Plt Count Lymph % (Auto) [place] % (Auto) Eos % (Auto) Baso % (Auto) Lymph # [place] # Eos # Baso # Seg Neutrophils % Seg Neuts % (Manual) Lymphocytes % (Manual) Eosinophils % (Manual) Seg Neutrophils # Lymphocytes # (Manual) Eosinophils # (Manual) PT INR D-Dimer POC ABG pH POC ABG pCO2 POC ABG pO2 ABG pO2 ABG HCO3 ABG Base Excess ABG Hemoglobin Oxyhemoglobin Sodium Potassium Chloride Carbon Dioxide BUN Creatinine Glucose POC Glucose 114 H 147 H 192 H Calcium Phosphorus Magnesium ALT Alkaline Phosphatase Total Creatine Kinase CK-MB (CK-2) Rel Index Troponin T Albumin LDL Cholesterol Direct PTH Intact Salicylates Acetaminophen Crossmatch 03/17/19 03/17/19 03/17/19 05:53 11:17 17:01 WBC RBC Hgb Hct MCV MCH MCHC RDW Plt Count Lymph % (Auto) [place] % (Auto) Eos % (Auto) Baso % (Auto) Lymph # [place] # Eos # Baso # Seg Neutrophils % Seg Neuts % (Manual) Lymphocytes % (Manual) Eosinophils % (Manual) Seg Neutrophils # Lymphocytes # (Manual) Eosinophils # (Manual) PT INR D-Dimer POC ABG pH POC ABG pCO2 POC ABG pO2 ABG pO2 ABG HCO3 ABG Base Excess ABG Hemoglobin Oxyhemoglobin Sodium Potassium Chloride Carbon Dioxide BUN Creatinine Glucose POC Glucose 151 H 161 H 152 H Calcium Phosphorus Magnesium ALT Alkaline Phosphatase Total Creatine Kinase CK-MB (CK-2) Rel Index Troponin T Albumin LDL Cholesterol Direct PTH Intact Salicylates Acetaminophen Crossmatch 03/17/19 03/18/19 03/18/19 21:47 04:15 04:44 WBC RBC Hgb Hct MCV MCH MCHC RDW Plt Count Lymph % (Auto) [place] % (Auto) Eos % (Auto) Baso % (Auto) Lymph # [place] # Eos # Baso # Seg Neutrophils % Seg Neuts % (Manual) Lymphocytes % (Manual) Eosinophils % (Manual) Seg Neutrophils # Lymphocytes # (Manual) Eosinophils # (Manual) PT INR D-Dimer POC ABG pH POC ABG pCO2 POC ABG pO2 ABG pO2 102.8 H ABG HCO3 28.3 H ABG Base Excess ABG Hemoglobin 10.4 L Oxyhemoglobin 94.5 L Sodium Potassium Chloride Carbon Dioxide BUN Creatinine Glucose POC Glucose 170 H 150 H Calcium Phosphorus Magnesium ALT Alkaline Phosphatase Total Creatine Kinase CK-MB (CK-2) Rel Index Troponin T Albumin LDL Cholesterol Direct PTH Intact Salicylates Acetaminophen Crossmatch 03/18/19 03/18/19 03/18/19 06:38 12:12 17:47 WBC RBC Hgb Hct MCV MCH MCHC RDW Plt Count Lymph % (Auto) [place] % (Auto) Eos % (Auto) Baso % (Auto) Lymph # [place] # Eos # Baso # Seg Neutrophils % Seg Neuts % (Manual) Lymphocytes % (Manual) Eosinophils % (Manual) Seg Neutrophils # Lymphocytes # (Manual) Eosinophils # (Manual) PT INR D-Dimer POC ABG pH 7.510 H POC ABG pCO2 POC ABG pO2 164 H ABG pO2 ABG HCO3 ABG Base Excess ABG Hemoglobin Oxyhemoglobin Sodium Potassium Chloride Carbon Dioxide BUN Creatinine Glucose POC Glucose 145 H 149 H Calcium Phosphorus Magnesium ALT Alkaline Phosphatase Total Creatine Kinase CK-MB (CK-2) Rel Index Troponin T Albumin LDL Cholesterol Direct PTH Intact Salicylates Acetaminophen Crossmatch 03/18/19 03/19/19 03/19/19 23:25 01:11 04:23 WBC 15.6 H RBC 2.51 L Hgb 6.5 L Hct 21.6 L MCV MCH 26 L MCHC 30 L RDW 19.8 H Plt Count Lymph % (Auto) 6.0 L [place] % (Auto) Eos % (Auto) Baso % (Auto) Lymph # 0.9 L [place] # 1.0 H Eos # Baso # Seg Neutrophils % 85.5 H Seg Neuts % (Manual) Lymphocytes % (Manual) Eosinophils % (Manual) Seg Neutrophils # 13.4 H Lymphocytes # (Manual) Eosinophils # (Manual) PT INR D-Dimer POC ABG pH POC ABG pCO2 POC ABG pO2 ABG pO2 78.3 L ABG HCO3 30.7 H ABG Base Excess 5.8 H ABG Hemoglobin 5.8 L Oxyhemoglobin 94.6 L Sodium Potassium Chloride Carbon Dioxide BUN Creatinine Glucose POC Glucose 190 H Calcium Phosphorus Magnesium ALT Alkaline Phosphatase Total Creatine Kinase CK-MB (CK-2) Rel Index Troponin T Albumin LDL Cholesterol Direct PTH Intact Salicylates Acetaminophen Crossmatch 03/19/19 03/19/19 03/19/19 05:22 05:35 08:54 WBC RBC Hgb Hct MCV MCH MCHC RDW Plt Count Lymph % (Auto) [place] % (Auto) Eos % (Auto) Baso % (Auto) Lymph # [place] # Eos # Baso # Seg Neutrophils % Seg Neuts % (Manual) Lymphocytes % (Manual) Eosinophils % (Manual) Seg Neutrophils # Lymphocytes # (Manual) Eosinophils # (Manual) PT INR D-Dimer POC ABG pH POC ABG pCO2 POC ABG pO2 ABG pO2 ABG HCO3 ABG Base Excess ABG Hemoglobin Oxyhemoglobin Sodium Potassium Chloride Carbon Dioxide BUN Creatinine Glucose POC Glucose 167 H Calcium Phosphorus Magnesium ALT Alkaline Phosphatase Total Creatine Kinase CK-MB (CK-2) Rel Index Troponin T Albumin LDL Cholesterol Direct PTH Intact Salicylates Acetaminophen Crossmatch See Detail See Detail 03/19/19 03/19/19 03/19/19 12:36 17:02 23:25 WBC RBC Hgb Hct MCV MCH MCHC RDW Plt Count Lymph % (Auto) [place] % (Auto) Eos % (Auto) Baso % (Auto) Lymph # [place] # Eos # Baso # Seg Neutrophils % Seg Neuts % (Manual) Lymphocytes % (Manual) Eosinophils % (Manual) Seg Neutrophils # Lymphocytes # (Manual) Eosinophils # (Manual) PT INR D-Dimer POC ABG pH POC ABG pCO2 POC ABG pO2 ABG pO2 ABG HCO3 ABG Base Excess ABG Hemoglobin Oxyhemoglobin Sodium Potassium Chloride Carbon Dioxide BUN Creatinine Glucose POC Glucose 167 H 135 H 136 H Calcium Phosphorus Magnesium ALT Alkaline Phosphatase Total Creatine Kinase CK-MB (CK-2) Rel Index Troponin T Albumin LDL Cholesterol Direct PTH Intact Salicylates Acetaminophen Crossmatch 03/20/19 03/20/19 03/20/19 05:38 08:40 08:40 WBC RBC 2.61 L Hgb 7.1 L Hct 22.0 L MCV MCH 27 L MCHC RDW 19.6 H Plt Count Lymph % (Auto) 8.2 L [place] % (Auto) 8.3 H Eos % (Auto) 5.7 H Baso % (Auto) Lymph # 0.8 L [place] # Eos # 0.5 H Baso # Seg Neutrophils % 77.3 H Seg Neuts % (Manual) Lymphocytes % (Manual) Eosinophils % (Manual) Seg Neutrophils # Lymphocytes # (Manual) Eosinophils # (Manual) PT INR D-Dimer POC ABG pH POC ABG pCO2 POC ABG pO2 ABG pO2 ABG HCO3 ABG Base Excess ABG Hemoglobin Oxyhemoglobin Sodium Potassium Chloride 95.9 L Carbon Dioxide BUN 69 H Creatinine 2.8 H Glucose 115 H POC Glucose 134 H Calcium 10.5 H Phosphorus Magnesium ALT Alkaline Phosphatase Total Creatine Kinase CK-MB (CK-2) Rel Index Troponin T Albumin LDL Cholesterol Direct PTH Intact Salicylates Acetaminophen Crossmatch 03/20/19 03/20/19 03/20/19 12:13 18:04 23:49 WBC RBC Hgb Hct MCV MCH MCHC RDW Plt Count Lymph % (Auto) [place] % (Auto) Eos % (Auto) Baso % (Auto) Lymph # [place] # Eos # Baso # Seg Neutrophils % Seg Neuts % (Manual) Lymphocytes % (Manual) Eosinophils % (Manual) Seg Neutrophils # Lymphocytes # (Manual) Eosinophils # (Manual) PT INR D-Dimer POC ABG pH POC ABG pCO2 POC ABG pO2 ABG pO2 ABG HCO3 ABG Base Excess ABG Hemoglobin Oxyhemoglobin Sodium Potassium Chloride Carbon Dioxide BUN Creatinine Glucose POC Glucose 144 H 165 H 172 H Calcium Phosphorus Magnesium ALT Alkaline Phosphatase Total Creatine Kinase CK-MB (CK-2) Rel Index Troponin T Albumin LDL Cholesterol Direct PTH Intact Salicylates Acetaminophen Crossmatch 03/21/19 03/21/19 03/21/19 05:00 06:29 06:30 WBC RBC 2.72 L Hgb 7.4 L Hct 22.9 L MCV MCH 27 L MCHC RDW 19.4 H Plt Count Lymph % (Auto) [place] % (Auto) Eos % (Auto) Baso % (Auto) Lymph # [place] # Eos # Baso # Seg Neutrophils % Seg Neuts % (Manual) 81.0 H Lymphocytes % (Manual) 8.0 L Eosinophils % (Manual) 8.0 H Seg Neutrophils # Lymphocytes # (Manual) 0.7 L Eosinophils # (Manual) 0.7 H PT INR D-Dimer POC ABG pH POC ABG pCO2 POC ABG pO2 ABG pO2 ABG HCO3 ABG Base Excess ABG Hemoglobin Oxyhemoglobin Sodium Potassium Chloride Carbon Dioxide 33 H BUN 43 H Creatinine 1.7 H Glucose 145 H POC Glucose 156 H Calcium Phosphorus Magnesium ALT Alkaline Phosphatase 212 H Total Creatine Kinase CK-MB (CK-2) Rel Index Troponin T Albumin 2.2 L LDL Cholesterol Direct PTH Intact Salicylates Acetaminophen Crossmatch 03/21/19 03/21/19 03/22/19 12:02 18:07 00:21 WBC RBC Hgb Hct MCV MCH MCHC RDW Plt Count Lymph % (Auto) [place] % (Auto) Eos % (Auto) Baso % (Auto) Lymph # [place] # Eos # Baso # Seg Neutrophils % Seg Neuts % (Manual) Lymphocytes % (Manual) Eosinophils % (Manual) Seg Neutrophils # Lymphocytes # (Manual) Eosinophils # (Manual) PT INR D-Dimer POC ABG pH POC ABG pCO2 POC ABG pO2 ABG pO2 ABG HCO3 ABG Base Excess ABG Hemoglobin Oxyhemoglobin Sodium Potassium Chloride Carbon Dioxide BUN Creatinine Glucose POC Glucose 163 H 144 H 153 H Calcium Phosphorus Magnesium ALT Alkaline Phosphatase Total Creatine Kinase CK-MB (CK-2) Rel Index Troponin T Albumin LDL Cholesterol Direct PTH Intact Salicylates Acetaminophen Crossmatch 03/22/19 03/22/19 03/22/19 05:23 05:23 05:31 WBC RBC 2.58 L Hgb 7.1 L Hct 21.8 L MCV MCH 27 L MCHC RDW 19.2 H Plt Count Lymph % (Auto) [place] % (Auto) Eos % (Auto) Baso % (Auto) Lymph # [place] # Eos # Baso # Seg Neutrophils % Seg Neuts % (Manual) Lymphocytes % (Manual) Eosinophils % (Manual) Seg Neutrophils # Lymphocytes # (Manual) Eosinophils # (Manual) PT INR D-Dimer POC ABG pH POC ABG pCO2 POC ABG pO2 ABG pO2 ABG HCO3 ABG Base Excess ABG Hemoglobin Oxyhemoglobin Sodium 147 H Potassium Chloride Carbon Dioxide BUN 68 H Creatinine 2.5 H Glucose POC Glucose 116 H Calcium 10.3 H Phosphorus Magnesium ALT Alkaline Phosphatase Total Creatine Kinase CK-MB (CK-2) Rel Index Troponin T Albumin LDL Cholesterol Direct PTH Intact Salicylates Acetaminophen Crossmatch 03/22/19 03/22/19 03/22/19 08:48 12:37 17:35 WBC RBC Hgb Hct MCV MCH MCHC RDW Plt Count Lymph % (Auto) [place] % (Auto) Eos % (Auto) Baso % (Auto) Lymph # [place] # Eos # Baso # Seg Neutrophils % Seg Neuts % (Manual) Lymphocytes % (Manual) Eosinophils % (Manual) Seg Neutrophils # Lymphocytes # (Manual) Eosinophils # (Manual) PT INR D-Dimer POC ABG pH POC ABG pCO2 POC ABG pO2 ABG pO2 ABG HCO3 ABG Base Excess ABG Hemoglobin Oxyhemoglobin Sodium Potassium Chloride Carbon Dioxide BUN Creatinine Glucose POC Glucose 143 H 155 H Calcium Phosphorus Magnesium ALT Alkaline Phosphatase Total Creatine Kinase CK-MB (CK-2) Rel Index Troponin T Albumin LDL Cholesterol Direct PTH Intact Salicylates Acetaminophen Crossmatch See Detail 03/23/19 03/23/19 03/23/19 00:07 04:00 04:00 WBC 11.2 H RBC 2.32 L Hgb 6.4 L Hct 19.7 L* MCV MCH MCHC RDW 19.4 H Plt Count Lymph % (Auto) [place] % (Auto) Eos % (Auto) Baso % (Auto) Lymph # [place] # Eos # Baso # Seg Neutrophils % Seg Neuts % (Manual) Lymphocytes % (Manual) Eosinophils % (Manual) Seg Neutrophils # Lymphocytes # (Manual) Eosinophils # (Manual) PT INR D-Dimer POC ABG pH POC ABG pCO2 POC ABG pO2 ABG pO2 ABG HCO3 ABG Base Excess ABG Hemoglobin Oxyhemoglobin Sodium 147 H Potassium 5.2 H Chloride Carbon Dioxide BUN 86 H Creatinine 3.2 H Glucose 128 H POC Glucose 135 H Calcium 10.3 H Phosphorus Magnesium ALT Alkaline Phosphatase Total Creatine Kinase CK-MB (CK-2) Rel Index Troponin T Albumin LDL Cholesterol Direct PTH Intact Salicylates Acetaminophen Crossmatch 03/23/19 03/23/19 03/23/19 05:21 11:36 11:36 WBC RBC Hgb 7.9 L Hct 25.0 L MCV MCH MCHC RDW Plt Count Lymph % (Auto) [place] % (Auto) Eos % (Auto) Baso % (Auto) Lymph # [place] # Eos # Baso # Seg Neutrophils % Seg Neuts % (Manual) Lymphocytes % (Manual) Eosinophils % (Manual) Seg Neutrophils # Lymphocytes # (Manual) Eosinophils # (Manual) PT INR D-Dimer POC ABG pH POC ABG pCO2 POC ABG pO2 ABG pO2 ABG HCO3 ABG Base Excess ABG Hemoglobin Oxyhemoglobin Sodium Potassium Chloride Carbon Dioxide BUN Creatinine Glucose POC Glucose 132 H 147 H Calcium Phosphorus Magnesium ALT Alkaline Phosphatase Total Creatine Kinase CK-MB (CK-2) Rel Index Troponin T Albumin LDL Cholesterol Direct PTH Intact Salicylates Acetaminophen Crossmatch 03/23/19 03/24/19 03/24/19 17:31 01:22 04:20 WBC 12.2 H RBC 3.05 L Hgb 8.3 L Hct 25.9 L MCV MCH 27 L MCHC RDW 18.7 H Plt Count Lymph % (Auto) [place] % (Auto) Eos % (Auto) Baso % (Auto) Lymph # [place] # Eos # Baso # Seg Neutrophils % Seg Neuts % (Manual) Lymphocytes % (Manual) Eosinophils % (Manual) Seg Neutrophils # Lymphocytes # (Manual) Eosinophils # (Manual) PT INR D-Dimer POC ABG pH POC ABG pCO2 POC ABG pO2 ABG pO2 ABG HCO3 ABG Base Excess ABG Hemoglobin Oxyhemoglobin Sodium Potassium Chloride Carbon Dioxide BUN Creatinine Glucose POC Glucose 182 H 113 H Calcium Phosphorus Magnesium ALT Alkaline Phosphatase Total Creatine Kinase CK-MB (CK-2) Rel Index Troponin T Albumin LDL Cholesterol Direct PTH Intact Salicylates Acetaminophen Crossmatch 03/24/19 03/24/19 03/24/19 04:20 11:59 18:14 WBC RBC Hgb Hct MCV MCH MCHC RDW Plt Count Lymph % (Auto) [place] % (Auto) Eos % (Auto) Baso % (Auto) Lymph # [place] # Eos # Baso # Seg Neutrophils % Seg Neuts % (Manual) Lymphocytes % (Manual) Eosinophils % (Manual) Seg Neutrophils # Lymphocytes # (Manual) Eosinophils # (Manual) PT INR D-Dimer POC ABG pH POC ABG pCO2 POC ABG pO2 ABG pO2 ABG HCO3 ABG Base Excess ABG Hemoglobin Oxyhemoglobin Sodium Potassium Chloride 94.8 L Carbon Dioxide 32 H BUN 53 H Creatinine 2.3 H Glucose POC Glucose 163 H 134 H Calcium Phosphorus Magnesium ALT Alkaline Phosphatase Total Creatine Kinase CK-MB (CK-2) Rel Index Troponin T Albumin LDL Cholesterol Direct PTH Intact Salicylates Acetaminophen Crossmatch 03/24/19 03/25/19 03/25/19 23:15 05:52 12:02 WBC RBC Hgb Hct MCV MCH MCHC RDW Plt Count Lymph % (Auto) [place] % (Auto) Eos % (Auto) Baso % (Auto) Lymph # [place] # Eos # Baso # Seg Neutrophils % Seg Neuts % (Manual) Lymphocytes % (Manual) Eosinophils % (Manual) Seg Neutrophils # Lymphocytes # (Manual) Eosinophils # (Manual) PT INR D-Dimer POC ABG pH POC ABG pCO2 POC ABG pO2 ABG pO2 ABG HCO3 ABG Base Excess ABG Hemoglobin Oxyhemoglobin Sodium Potassium Chloride Carbon Dioxide BUN Creatinine Glucose POC Glucose 129 H 123 H 125 H Calcium Phosphorus Magnesium ALT Alkaline Phosphatase Total Creatine Kinase CK-MB (CK-2) Rel Index Troponin T Albumin LDL Cholesterol Direct PTH Intact Salicylates Acetaminophen Crossmatch 03/25/19 03/26/19 03/26/19 17:27 00:30 05:35 WBC RBC 3.01 L Hgb 8.1 L Hct 25.7 L MCV MCH 27 L MCHC RDW 19.2 H Plt Count Lymph % (Auto) 11.4 L [place] % (Auto) Eos % (Auto) 8.0 H Baso % (Auto) Lymph # 1.0 L [place] # Eos # 0.7 H Baso # Seg Neutrophils % 73.9 H Seg Neuts % (Manual) Lymphocytes % (Manual) Eosinophils % (Manual) Seg Neutrophils # Lymphocytes # (Manual) Eosinophils # (Manual) PT INR D-Dimer POC ABG pH POC ABG pCO2 POC ABG pO2 ABG pO2 ABG HCO3 ABG Base Excess ABG Hemoglobin Oxyhemoglobin Sodium Potassium Chloride Carbon Dioxide BUN Creatinine Glucose POC Glucose 130 H 129 H Calcium Phosphorus Magnesium ALT Alkaline Phosphatase Total Creatine Kinase CK-MB (CK-2) Rel Index Troponin T Albumin LDL Cholesterol Direct PTH Intact Salicylates Acetaminophen Crossmatch 03/26/19 03/26/19 03/26/19 05:35 05:45 12:16 WBC RBC Hgb Hct MCV MCH MCHC RDW Plt Count Lymph % (Auto) [place] % (Auto) Eos % (Auto) Baso % (Auto) Lymph # [place] # Eos # Baso # Seg Neutrophils % Seg Neuts % (Manual) Lymphocytes % (Manual) Eosinophils % (Manual) Seg Neutrophils # Lymphocytes # (Manual) Eosinophils # (Manual) PT INR D-Dimer POC ABG pH POC ABG pCO2 POC ABG pO2 ABG pO2 ABG HCO3 ABG Base Excess ABG Hemoglobin Oxyhemoglobin Sodium Potassium Chloride 94.9 L Carbon Dioxide 31 H BUN 44 H Creatinine 2.0 H Glucose POC Glucose 118 H 107 H Calcium Phosphorus Magnesium ALT Alkaline Phosphatase Total Creatine Kinase CK-MB (CK-2) Rel Index Troponin T Albumin LDL Cholesterol Direct PTH Intact Salicylates Acetaminophen Crossmatch 03/26/19 03/27/19 03/27/19 17:56 00:36 05:37 WBC RBC Hgb Hct MCV MCH MCHC RDW Plt Count Lymph % (Auto) [place] % (Auto) Eos % (Auto) Baso % (Auto) Lymph # [place] # Eos # Baso # Seg Neutrophils % Seg Neuts % (Manual) Lymphocytes % (Manual) Eosinophils % (Manual) Seg Neutrophils # Lymphocytes # (Manual) Eosinophils # (Manual) PT INR D-Dimer POC ABG pH POC ABG pCO2 POC ABG pO2 ABG pO2 ABG HCO3 ABG Base Excess ABG Hemoglobin Oxyhemoglobin Sodium Potassium Chloride Carbon Dioxide BUN Creatinine Glucose POC Glucose 107 H 110 H 122 H Calcium Phosphorus Magnesium ALT Alkaline Phosphatase Total Creatine Kinase CK-MB (CK-2) Rel Index Troponin T Albumin LDL Cholesterol Direct PTH Intact Salicylates Acetaminophen Crossmatch 03/27/19 03/27/19 03/28/19 11:22 18:00 05:17 WBC RBC Hgb Hct MCV MCH MCHC RDW Plt Count Lymph % (Auto) [place] % (Auto) Eos % (Auto) Baso % (Auto) Lymph # [place] # Eos # Baso # Seg Neutrophils % Seg Neuts % (Manual) Lymphocytes % (Manual) Eosinophils % (Manual) Seg Neutrophils # Lymphocytes # (Manual) Eosinophils # (Manual) PT INR D-Dimer POC ABG pH POC ABG pCO2 POC ABG pO2 ABG pO2 ABG HCO3 ABG Base Excess ABG Hemoglobin Oxyhemoglobin Sodium Potassium Chloride Carbon Dioxide BUN Creatinine Glucose POC Glucose 120 H 111 H 107 H Calcium Phosphorus Magnesium ALT Alkaline Phosphatase Total Creatine Kinase CK-MB (CK-2) Rel Index Troponin T Albumin LDL Cholesterol Direct PTH Intact Salicylates Acetaminophen Crossmatch 03/28/19 03/28/19 03/29/19 12:27 18:08 05:47 WBC RBC Hgb Hct MCV MCH MCHC RDW Plt Count Lymph % (Auto) [place] % (Auto) Eos % (Auto) Baso % (Auto) Lymph # [place] # Eos # Baso # Seg Neutrophils % Seg Neuts % (Manual) Lymphocytes % (Manual) Eosinophils % (Manual) Seg Neutrophils # Lymphocytes # (Manual) Eosinophils # (Manual) PT INR D-Dimer POC ABG pH POC ABG pCO2 POC ABG pO2 ABG pO2 ABG HCO3 ABG Base Excess ABG Hemoglobin Oxyhemoglobin Sodium Potassium Chloride Carbon Dioxide BUN Creatinine Glucose POC Glucose 114 H 121 H 112 H Calcium Phosphorus Magnesium ALT Alkaline Phosphatase Total Creatine Kinase CK-MB (CK-2) Rel Index Troponin T Albumin LDL Cholesterol Direct PTH Intact Salicylates Acetaminophen Crossmatch 03/29/19 03/29/19 03/30/19 12:14 18:08 00:31 WBC RBC Hgb Hct MCV MCH MCHC RDW Plt Count Lymph % (Auto) [place] % (Auto) Eos % (Auto) Baso % (Auto) Lymph # [place] # Eos # Baso # Seg Neutrophils % Seg Neuts % (Manual) Lymphocytes % (Manual) Eosinophils % (Manual) Seg Neutrophils # Lymphocytes # (Manual) Eosinophils # (Manual) PT INR D-Dimer POC ABG pH POC ABG pCO2 POC ABG pO2 ABG pO2 ABG HCO3 ABG Base Excess ABG Hemoglobin Oxyhemoglobin Sodium Potassium Chloride Carbon Dioxide BUN Creatinine Glucose POC Glucose 117 H 140 H 114 H Calcium Phosphorus Magnesium ALT Alkaline Phosphatase Total Creatine Kinase CK-MB (CK-2) Rel Index Troponin T Albumin LDL Cholesterol Direct PTH Intact Salicylates Acetaminophen Crossmatch 03/30/19 03/30/19 03/30/19 10:13 10:13 23:53 WBC RBC 2.81 L Hgb 7.7 L Hct 24.3 L MCV MCH 27 L MCHC RDW 19.0 H Plt Count Lymph % (Auto) 12.2 L Wheeler % (Auto) Eos % (Auto) 7.9 H Baso % (Auto) Lymph # 1.0 L Wheeler # Eos # 0.6 H Baso # Seg Neutrophils % 72.3 H Seg Neuts % (Manual) Lymphocytes % (Manual) Eosinophils % (Manual) Seg Neutrophils # Lymphocytes # (Manual) Eosinophils # (Manual) PT INR D-Dimer POC ABG pH POC ABG pCO2 POC ABG pO2 ABG pO2 ABG HCO3 ABG Base Excess ABG Hemoglobin Oxyhemoglobin Sodium Potassium 5.1 H Chloride 96.5 L Carbon Dioxide BUN 73 H Creatinine 3.9 H D Glucose POC Glucose 114 H Calcium 10.3 H Phosphorus 6.30 H Magnesium 2.70 H ALT Alkaline Phosphatase 185 H Total Creatine Kinase CK-MB (CK-2) Rel Index Troponin T Albumin 2.6 L LDL Cholesterol Direct PTH Intact Salicylates Acetaminophen Crossmatch 03/31/19 03/31/19 03/31/19 05:45 10:26 10:26 WBC RBC 3.01 L Hgb 8.2 L Hct 26.4 L MCV MCH 27 L MCHC 31 L RDW 20.3 H Plt Count Lymph % (Auto) 13.3 L Wheeler % (Auto) Eos % (Auto) 7.2 H Baso % (Auto) Lymph # 1.1 L Wheeler # Eos # 0.6 H Baso # Seg Neutrophils % 72.1 H Seg Neuts % (Manual) Lymphocytes % (Manual) Eosinophils % (Manual) Seg Neutrophils # Lymphocytes # (Manual) Eosinophils # (Manual) PT INR D-Dimer POC ABG pH POC ABG pCO2 POC ABG pO2 ABG pO2 ABG HCO3 ABG Base Excess ABG Hemoglobin Oxyhemoglobin Sodium Potassium Chloride 96.9 L Carbon Dioxide 33 H BUN 37 H Creatinine 2.4 H Glucose POC Glucose 108 H Calcium 10.3 H Phosphorus Magnesium ALT Alkaline Phosphatase Total Creatine Kinase CK-MB (CK-2) Rel Index Troponin T Albumin LDL Cholesterol Direct PTH Intact Salicylates Acetaminophen Crossmatch 03/31/19 04/01/19 04/01/19 12:38 05:48 12:06 WBC RBC Hgb Hct MCV MCH MCHC RDW Plt Count Lymph % (Auto) Wheeler % (Auto) Eos % (Auto) Baso % (Auto) Lymph # Wheeler # Eos # Baso # Seg Neutrophils % Seg Neuts % (Manual) Lymphocytes % (Manual) Eosinophils % (Manual) Seg Neutrophils # Lymphocytes # (Manual) Eosinophils # (Manual) PT INR D-Dimer POC ABG pH POC ABG pCO2 POC ABG pO2 ABG pO2 ABG HCO3 ABG Base Excess ABG Hemoglobin Oxyhemoglobin Sodium Potassium Chloride Carbon Dioxide BUN Creatinine Glucose POC Glucose 108 H 114 H 111 H Calcium Phosphorus Magnesium ALT Alkaline Phosphatase Total Creatine Kinase CK-MB (CK-2) Rel Index Troponin T Albumin LDL Cholesterol Direct PTH Intact Salicylates Acetaminophen Crossmatch 04/01/19 04/02/19 04/04/19 18:24 00:36 23:55 WBC RBC Hgb Hct MCV MCH MCHC RDW Plt Count Lymph % (Auto) [place] % (Auto) Eos % (Auto) Baso % (Auto) Lymph # Wheeler # Eos # Baso # Seg Neutrophils % Seg Neuts % (Manual) Lymphocytes % (Manual) Eosinophils % (Manual) Seg Neutrophils # Lymphocytes # (Manual) Eosinophils # (Manual) PT INR D-Dimer POC ABG pH POC ABG pCO2 POC ABG pO2 ABG pO2 ABG HCO3 ABG Base Excess ABG Hemoglobin Oxyhemoglobin Sodium Potassium Chloride Carbon Dioxide BUN Creatinine Glucose POC Glucose 113 H 117 H 109 H Calcium Phosphorus Magnesium ALT Alkaline Phosphatase Total Creatine Kinase CK-MB (CK-2) Rel Index Troponin T Albumin LDL Cholesterol Direct PTH Intact Salicylates Acetaminophen Crossmatch 04/06/19 04/06/19 04/06/19 00:11 06:02 23:30 WBC RBC Hgb Hct MCV MCH MCHC RDW Plt Count Lymph % (Auto) [place] % (Auto) Eos % (Auto) Baso % (Auto) Lymph # Wheeler # Eos # Baso # Seg Neutrophils % Seg Neuts % (Manual) Lymphocytes % (Manual) Eosinophils % (Manual) Seg Neutrophils # Lymphocytes # (Manual) Eosinophils # (Manual) PT INR D-Dimer POC ABG pH POC ABG pCO2 POC ABG pO2 ABG pO2 ABG HCO3 ABG Base Excess ABG Hemoglobin Oxyhemoglobin Sodium Potassium Chloride Carbon Dioxide BUN Creatinine Glucose POC Glucose 116 H 112 H 112 H Calcium Phosphorus Magnesium ALT Alkaline Phosphatase Total Creatine Kinase CK-MB (CK-2) Rel Index Troponin T Albumin LDL Cholesterol Direct PTH Intact Salicylates Acetaminophen Crossmatch 04/08/19 04/08/19 04/08/19 02:23 06:19 13:01 WBC RBC Hgb Hct MCV MCH MCHC RDW Plt Count Lymph % (Auto) [place] % (Auto) Eos % (Auto) Baso % (Auto) Lymph # Wheeler # Eos # Baso # Seg Neutrophils % Seg Neuts % (Manual) Lymphocytes % (Manual) Eosinophils % (Manual) Seg Neutrophils # Lymphocytes # (Manual) Eosinophils # (Manual) PT INR D-Dimer POC ABG pH POC ABG pCO2 POC ABG pO2 ABG pO2 ABG HCO3 ABG Base Excess ABG Hemoglobin Oxyhemoglobin Sodium Potassium Chloride Carbon Dioxide BUN Creatinine Glucose POC Glucose 144 H 126 H 118 H Calcium Phosphorus Magnesium ALT Alkaline Phosphatase Total Creatine Kinase CK-MB (CK-2) Rel Index Troponin T Albumin LDL Cholesterol Direct PTH Intact Salicylates Acetaminophen Crossmatch 04/08/19 04/09/19 04/10/19 23:28 05:52 06:34 WBC RBC Hgb Hct MCV MCH MCHC RDW Plt Count Lymph % (Auto) [place] % (Auto) Eos % (Auto) Baso % (Auto) Lymph # Wheeler # Eos # Baso # Seg Neutrophils % Seg Neuts % (Manual) Lymphocytes % (Manual) Eosinophils % (Manual) Seg Neutrophils # Lymphocytes # (Manual) Eosinophils # (Manual) PT INR D-Dimer POC ABG pH POC ABG pCO2 POC ABG pO2 ABG pO2 ABG HCO3 ABG Base Excess ABG Hemoglobin Oxyhemoglobin Sodium Potassium Chloride Carbon Dioxide BUN Creatinine Glucose POC Glucose 119 H 116 H 114 H Calcium Phosphorus Magnesium ALT Alkaline Phosphatase Total Creatine Kinase CK-MB (CK-2) Rel Index Troponin T Albumin LDL Cholesterol Direct PTH Intact Salicylates Acetaminophen Crossmatch 04/10/19 04/10/19 04/11/19 12:34 18:59 00:36 WBC RBC Hgb Hct MCV MCH MCHC RDW Plt Count Lymph % (Auto) [place] % (Auto) Eos % (Auto) Baso % (Auto) Lymph # Wheeler # Eos # Baso # Seg Neutrophils % Seg Neuts % (Manual) Lymphocytes % (Manual) Eosinophils % (Manual) Seg Neutrophils # Lymphocytes # (Manual) Eosinophils # (Manual) PT INR D-Dimer POC ABG pH POC ABG pCO2 POC ABG pO2 ABG pO2 ABG HCO3 ABG Base Excess ABG Hemoglobin Oxyhemoglobin Sodium Potassium Chloride Carbon Dioxide BUN Creatinine Glucose POC Glucose 112 H 109 H 124 H Calcium Phosphorus Magnesium ALT Alkaline Phosphatase Total Creatine Kinase CK-MB (CK-2) Rel Index Troponin T Albumin LDL Cholesterol Direct PTH Intact Salicylates Acetaminophen Crossmatch 04/11/19 04/11/19 04/12/19 08:01 17:25 02:18 WBC RBC Hgb Hct MCV MCH MCHC RDW Plt Count Lymph % (Auto) [place] % (Auto) Eos % (Auto) Baso % (Auto) Lymph # Wheeler # Eos # Baso # Seg Neutrophils % Seg Neuts % (Manual) Lymphocytes % (Manual) Eosinophils % (Manual) Seg Neutrophils # Lymphocytes # (Manual) Eosinophils # (Manual) PT INR D-Dimer POC ABG pH POC ABG pCO2 POC ABG pO2 ABG pO2 ABG HCO3 ABG Base Excess ABG Hemoglobin Oxyhemoglobin Sodium Potassium Chloride Carbon Dioxide BUN Creatinine Glucose POC Glucose 118 H 106 H 125 H Calcium Phosphorus Magnesium ALT Alkaline Phosphatase Total Creatine Kinase CK-MB (CK-2) Rel Index Troponin T Albumin LDL Cholesterol Direct PTH Intact Salicylates Acetaminophen Crossmatch 04/12/19 04/12/19 04/12/19 06:24 12:22 17:13 WBC RBC Hgb Hct MCV MCH MCHC RDW Plt Count Lymph % (Auto) [place] % (Auto) Eos % (Auto) Baso % (Auto) Lymph # Wheeler # Eos # Baso # Seg Neutrophils % Seg Neuts % (Manual) Lymphocytes % (Manual) Eosinophils % (Manual) Seg Neutrophils # Lymphocytes # (Manual) Eosinophils # (Manual) PT INR D-Dimer POC ABG pH POC ABG pCO2 POC ABG pO2 ABG pO2 ABG HCO3 ABG Base Excess ABG Hemoglobin Oxyhemoglobin Sodium Potassium Chloride Carbon Dioxide BUN Creatinine Glucose POC Glucose 128 H 114 H 110 H Calcium Phosphorus Magnesium ALT Alkaline Phosphatase Total Creatine Kinase CK-MB (CK-2) Rel Index Troponin T Albumin LDL Cholesterol Direct PTH Intact Salicylates Acetaminophen Crossmatch 04/13/19 04/13/19 04/13/19 06:59 07:31 07:31 WBC RBC 3.34 L Hgb 8.9 L Hct 28.6 L MCV MCH 27 L MCHC 31 L RDW 19.6 H Plt Count Lymph % (Auto) [place] % (Auto) Eos % (Auto) Baso % (Auto) Lymph # Wheeler # Eos # Baso # Seg Neutrophils % Seg Neuts % (Manual) Lymphocytes % (Manual) Eosinophils % (Manual) Seg Neutrophils # Lymphocytes # (Manual) Eosinophils # (Manual) PT INR D-Dimer POC ABG pH POC ABG pCO2 POC ABG pO2 ABG pO2 ABG HCO3 ABG Base Excess ABG Hemoglobin Oxyhemoglobin Sodium Potassium Chloride 96.4 L Carbon Dioxide 33 H BUN 66 H Creatinine 4.5 H Glucose 103 H POC Glucose 107 H Calcium Phosphorus Magnesium ALT Alkaline Phosphatase Total Creatine Kinase CK-MB (CK-2) Rel Index Troponin T Albumin LDL Cholesterol Direct PTH Intact Salicylates Acetaminophen Crossmatch 04/13/19 04/14/19 04/14/19 23:43 05:50 13:07 WBC RBC Hgb Hct MCV MCH MCHC RDW Plt Count Lymph % (Auto) [place] % (Auto) Eos % (Auto) Baso % (Auto) Lymph # Wheeler # Eos # Baso # Seg Neutrophils % Seg Neuts % (Manual) Lymphocytes % (Manual) Eosinophils % (Manual) Seg Neutrophils # Lymphocytes # (Manual) Eosinophils # (Manual) PT INR D-Dimer POC ABG pH POC ABG pCO2 POC ABG pO2 ABG pO2 ABG HCO3 ABG Base Excess ABG Hemoglobin Oxyhemoglobin Sodium Potassium Chloride Carbon Dioxide BUN Creatinine Glucose POC Glucose 119 H 112 H 112 H Calcium Phosphorus Magnesium ALT Alkaline Phosphatase Total Creatine Kinase CK-MB (CK-2) Rel Index Troponin T Albumin LDL Cholesterol Direct PTH Intact Salicylates Acetaminophen Crossmatch 04/14/19 04/15/19 04/15/19 18:35 01:18 05:17 WBC RBC Hgb Hct MCV MCH MCHC RDW Plt Count Lymph % (Auto) [place] % (Auto) Eos % (Auto) Baso % (Auto) Lymph # Wheeler # Eos # Baso # Seg Neutrophils % Seg Neuts % (Manual) Lymphocytes % (Manual) Eosinophils % (Manual) Seg Neutrophils # Lymphocytes # (Manual) Eosinophils # (Manual) PT INR D-Dimer POC ABG pH POC ABG pCO2 POC ABG pO2 ABG pO2 ABG HCO3 ABG Base Excess ABG Hemoglobin Oxyhemoglobin Sodium Potassium Chloride Carbon Dioxide BUN Creatinine Glucose POC Glucose 114 H 114 H 114 H Calcium Phosphorus Magnesium ALT Alkaline Phosphatase Total Creatine Kinase CK-MB (CK-2) Rel Index Troponin T Albumin LDL Cholesterol Direct PTH Intact Salicylates Acetaminophen Crossmatch 04/15/19 04/15/19 04/16/19 11:50 23:39 05:41 WBC RBC Hgb Hct MCV MCH MCHC RDW Plt Count Lymph % (Auto) [place] % (Auto) Eos % (Auto) Baso % (Auto) Lymph # Wheeler # Eos # Baso # Seg Neutrophils % Seg Neuts % (Manual) Lymphocytes % (Manual) Eosinophils % (Manual) Seg Neutrophils # Lymphocytes # (Manual) Eosinophils # (Manual) PT INR D-Dimer POC ABG pH POC ABG pCO2 POC ABG pO2 ABG pO2 ABG HCO3 ABG Base Excess ABG Hemoglobin Oxyhemoglobin Sodium Potassium Chloride Carbon Dioxide BUN Creatinine Glucose POC Glucose 109 H 115 H 125 H Calcium Phosphorus Magnesium ALT Alkaline Phosphatase Total Creatine Kinase CK-MB (CK-2) Rel Index Troponin T Albumin LDL Cholesterol Direct PTH Intact Salicylates Acetaminophen Crossmatch 04/16/19 04/17/19 04/17/19 12:53 01:00 12:38 WBC RBC Hgb Hct MCV MCH MCHC RDW Plt Count Lymph % (Auto) [place] % (Auto) Eos % (Auto) Baso % (Auto) Lymph # Wheeler # Eos # Baso # Seg Neutrophils % Seg Neuts % (Manual) Lymphocytes % (Manual) Eosinophils % (Manual) Seg Neutrophils # Lymphocytes # (Manual) Eosinophils # (Manual) PT INR D-Dimer POC ABG pH POC ABG pCO2 POC ABG pO2 ABG pO2 ABG HCO3 ABG Base Excess ABG Hemoglobin Oxyhemoglobin Sodium Potassium Chloride Carbon Dioxide BUN Creatinine Glucose POC Glucose 121 H 127 H 159 H Calcium Phosphorus Magnesium ALT Alkaline Phosphatase Total Creatine Kinase CK-MB (CK-2) Rel Index Troponin T Albumin LDL Cholesterol Direct PTH Intact Salicylates Acetaminophen Crossmatch 04/17/19 04/17/19 04/18/19 18:27 23:36 07:19 WBC RBC 3.49 L Hgb 9.0 L Hct 29.9 L MCV MCH 26 L MCHC 30 L RDW 20.0 H Plt Count Lymph % (Auto) [place] % (Auto) Eos % (Auto) Baso % (Auto) Lymph # Wheeler # Eos # Baso # Seg Neutrophils % Seg Neuts % (Manual) Lymphocytes % (Manual) Eosinophils % (Manual) Seg Neutrophils # Lymphocytes # (Manual) Eosinophils # (Manual) PT INR D-Dimer POC ABG pH POC ABG pCO2 POC ABG pO2 ABG pO2 ABG HCO3 ABG Base Excess ABG Hemoglobin Oxyhemoglobin Sodium Potassium Chloride Carbon Dioxide BUN Creatinine Glucose POC Glucose 109 H 134 H Calcium Phosphorus Magnesium ALT Alkaline Phosphatase Total Creatine Kinase CK-MB (CK-2) Rel Index Troponin T Albumin LDL Cholesterol Direct PTH Intact Salicylates Acetaminophen Crossmatch 04/18/19 04/18/19 04/18/19 07:19 12:16 17:09 WBC RBC Hgb Hct MCV MCH MCHC RDW Plt Count Lymph % (Auto) [place] % (Auto) Eos % (Auto) Baso % (Auto) Lymph # Wheeler # Eos # Baso # Seg Neutrophils % Seg Neuts % (Manual) Lymphocytes % (Manual) Eosinophils % (Manual) Seg Neutrophils # Lymphocytes # (Manual) Eosinophils # (Manual) PT INR D-Dimer POC ABG pH POC ABG pCO2 POC ABG pO2 ABG pO2 ABG HCO3 ABG Base Excess ABG Hemoglobin Oxyhemoglobin Sodium Potassium Chloride Carbon Dioxide BUN 41 H Creatinine 2.9 H Glucose 122 H POC Glucose 125 H 131 H Calcium Phosphorus Magnesium ALT Alkaline Phosphatase Total Creatine Kinase CK-MB (CK-2) Rel Index Troponin T Albumin LDL Cholesterol Direct PTH Intact Salicylates Acetaminophen Crossmatch 04/18/19 04/19/19 04/19/19 23:57 05:55 11:35 WBC RBC Hgb Hct MCV MCH MCHC RDW Plt Count Lymph % (Auto) [place] % (Auto) Eos % (Auto) Baso % (Auto) Lymph # Wheeler # Eos # Baso # Seg Neutrophils % Seg Neuts % (Manual) Lymphocytes % (Manual) Eosinophils % (Manual) Seg Neutrophils # Lymphocytes # (Manual) Eosinophils # (Manual) PT INR D-Dimer POC ABG pH POC ABG pCO2 POC ABG pO2 ABG pO2 ABG HCO3 ABG Base Excess ABG Hemoglobin Oxyhemoglobin Sodium Potassium Chloride Carbon Dioxide BUN Creatinine Glucose POC Glucose 159 H 144 H 177 H Calcium Phosphorus Magnesium ALT Alkaline Phosphatase Total Creatine Kinase CK-MB (CK-2) Rel Index Troponin T Albumin LDL Cholesterol Direct PTH Intact Salicylates Acetaminophen Crossmatch 04/19/19 04/20/19 04/20/19 16:36 02:05 06:28 WBC RBC Hgb Hct MCV MCH MCHC RDW Plt Count Lymph % (Auto) [place] % (Auto) Eos % (Auto) Baso % (Auto) Lymph # Wheeler # Eos # Baso # Seg Neutrophils % Seg Neuts % (Manual) Lymphocytes % (Manual) Eosinophils % (Manual) Seg Neutrophils # Lymphocytes # (Manual) Eosinophils # (Manual) PT INR D-Dimer POC ABG pH POC ABG pCO2 POC ABG pO2 ABG pO2 ABG HCO3 ABG Base Excess ABG Hemoglobin Oxyhemoglobin Sodium Potassium Chloride Carbon Dioxide BUN Creatinine Glucose POC Glucose 134 H 142 H 132 H Calcium Phosphorus Magnesium ALT Alkaline Phosphatase Total Creatine Kinase CK-MB (CK-2) Rel Index Troponin T Albumin LDL Cholesterol Direct PTH Intact Salicylates Acetaminophen Crossmatch 04/20/19 04/20/19 04/21/19 12:37 23:34 05:59 WBC RBC Hgb Hct MCV MCH MCHC RDW Plt Count Lymph % (Auto) [place] % (Auto) Eos % (Auto) Baso % (Auto) Lymph # Wheeler # Eos # Baso # Seg Neutrophils % Seg Neuts % (Manual) Lymphocytes % (Manual) Eosinophils % (Manual) Seg Neutrophils # Lymphocytes # (Manual) Eosinophils # (Manual) PT INR D-Dimer POC ABG pH POC ABG pCO2 POC ABG pO2 ABG pO2 ABG HCO3 ABG Base Excess ABG Hemoglobin Oxyhemoglobin Sodium Potassium Chloride Carbon Dioxide BUN Creatinine Glucose POC Glucose 163 H 166 H 140 H Calcium Phosphorus Magnesium ALT Alkaline Phosphatase Total Creatine Kinase CK-MB (CK-2) Rel Index Troponin T Albumin LDL Cholesterol Direct PTH Intact Salicylates Acetaminophen Crossmatch 04/21/19 04/21/19 04/21/19 12:07 17:22 23:43 WBC RBC Hgb Hct MCV MCH MCHC RDW Plt Count Lymph % (Auto) [place] % (Auto) Eos % (Auto) Baso % (Auto) Lymph # Wheeler # Eos # Baso # Seg Neutrophils % Seg Neuts % (Manual) Lymphocytes % (Manual) Eosinophils % (Manual) Seg Neutrophils # Lymphocytes # (Manual) Eosinophils # (Manual) PT INR D-Dimer POC ABG pH POC ABG pCO2 POC ABG pO2 ABG pO2 ABG HCO3 ABG Base Excess ABG Hemoglobin Oxyhemoglobin Sodium Potassium Chloride Carbon Dioxide BUN Creatinine Glucose POC Glucose 135 H 141 H 138 H Calcium Phosphorus Magnesium ALT Alkaline Phosphatase Total Creatine Kinase CK-MB (CK-2) Rel Index Troponin T Albumin LDL Cholesterol Direct PTH Intact Salicylates Acetaminophen Crossmatch 04/22/19 04/22/19 04/22/19 05:12 18:24 23:49 WBC RBC Hgb Hct MCV MCH MCHC RDW Plt Count Lymph % (Auto) [place] % (Auto) Eos % (Auto) Baso % (Auto) Lymph # Wheeler # Eos # Baso # Seg Neutrophils % Seg Neuts % (Manual) Lymphocytes % (Manual) Eosinophils % (Manual) Seg Neutrophils # Lymphocytes # (Manual) Eosinophils # (Manual) PT INR D-Dimer POC ABG pH POC ABG pCO2 POC ABG pO2 ABG pO2 ABG HCO3 ABG Base Excess ABG Hemoglobin Oxyhemoglobin Sodium Potassium Chloride Carbon Dioxide BUN Creatinine Glucose POC Glucose 141 H 137 H 142 H Calcium Phosphorus Magnesium ALT Alkaline Phosphatase Total Creatine Kinase CK-MB (CK-2) Rel Index Troponin T Albumin LDL Cholesterol Direct PTH Intact Salicylates Acetaminophen Crossmatch 04/23/19 04/23/19 04/23/19 05:53 08:13 11:58 WBC RBC Hgb Hct MCV MCH MCHC RDW Plt Count Lymph % (Auto) [place] % (Auto) Eos % (Auto) Baso % (Auto) Lymph # Wheeler # Eos # Baso # Seg Neutrophils % Seg Neuts % (Manual) Lymphocytes % (Manual) Eosinophils % (Manual) Seg Neutrophils # Lymphocytes # (Manual) Eosinophils # (Manual) PT INR D-Dimer POC ABG pH POC ABG pCO2 POC ABG pO2 ABG pO2 ABG HCO3 ABG Base Excess ABG Hemoglobin Oxyhemoglobin Sodium Potassium Chloride Carbon Dioxide BUN Creatinine Glucose POC Glucose 132 H 154 H 165 H Calcium Phosphorus Magnesium ALT Alkaline Phosphatase Total Creatine Kinase CK-MB (CK-2) Rel Index Troponin T Albumin LDL Cholesterol Direct PTH Intact Salicylates Acetaminophen Crossmatch 04/23/19 04/24/19 04/24/19 16:28 00:28 07:00 WBC RBC Hgb Hct MCV MCH MCHC RDW Plt Count Lymph % (Auto) [place] % (Auto) Eos % (Auto) Baso % (Auto) Lymph # Wheeler # Eos # Baso # Seg Neutrophils % Seg Neuts % (Manual) Lymphocytes % (Manual) Eosinophils % (Manual) Seg Neutrophils # Lymphocytes # (Manual) Eosinophils # (Manual) PT INR D-Dimer POC ABG pH POC ABG pCO2 POC ABG pO2 ABG pO2 ABG HCO3 ABG Base Excess ABG Hemoglobin Oxyhemoglobin Sodium Potassium Chloride Carbon Dioxide BUN Creatinine Glucose POC Glucose 136 H 140 H 141 H Calcium Phosphorus Magnesium ALT Alkaline Phosphatase Total Creatine Kinase CK-MB (CK-2) Rel Index Troponin T Albumin LDL Cholesterol Direct PTH Intact Salicylates Acetaminophen Crossmatch 04/24/19 04/24/19 04/25/19 12:38 18:57 00:38 WBC RBC Hgb Hct MCV MCH MCHC RDW Plt Count Lymph % (Auto) [place] % (Auto) Eos % (Auto) Baso % (Auto) Lymph # Wheeler # Eos # Baso # Seg Neutrophils % Seg Neuts % (Manual) Lymphocytes % (Manual) Eosinophils % (Manual) Seg Neutrophils # Lymphocytes # (Manual) Eosinophils # (Manual) PT INR D-Dimer POC ABG pH POC ABG pCO2 POC ABG pO2 ABG pO2 ABG HCO3 ABG Base Excess ABG Hemoglobin Oxyhemoglobin Sodium Potassium Chloride Carbon Dioxide BUN Creatinine Glucose POC Glucose 152 H 166 H 128 H Calcium Phosphorus Magnesium ALT Alkaline Phosphatase Total Creatine Kinase CK-MB (CK-2) Rel Index Troponin T Albumin LDL Cholesterol Direct PTH Intact Salicylates Acetaminophen Crossmatch 04/25/19 04/25/19 04/25/19 05:44 13:43 18:34 WBC RBC Hgb Hct MCV MCH MCHC RDW Plt Count Lymph % (Auto) [place] % (Auto) Eos % (Auto) Baso % (Auto) Lymph # Wheeler # Eos # Baso # Seg Neutrophils % Seg Neuts % (Manual) Lymphocytes % (Manual) Eosinophils % (Manual) Seg Neutrophils # Lymphocytes # (Manual) Eosinophils # (Manual) PT INR D-Dimer POC ABG pH POC ABG pCO2 POC ABG pO2 ABG pO2 ABG HCO3 ABG Base Excess ABG Hemoglobin Oxyhemoglobin Sodium Potassium Chloride Carbon Dioxide BUN Creatinine Glucose POC Glucose 153 H 186 H 124 H Calcium Phosphorus Magnesium ALT Alkaline Phosphatase Total Creatine Kinase CK-MB (CK-2) Rel Index Troponin T Albumin LDL Cholesterol Direct PTH Intact Salicylates Acetaminophen Crossmatch 04/26/19 04/26/19 04/26/19 00:59 05:52 10:12 WBC 11.5 H RBC 2.84 L Hgb 7.4 L Hct 23.3 L MCV 82 L MCH 26 L MCHC RDW 20.3 H Plt Count Lymph % (Auto) 7.5 L [place] % (Auto) 7.5 H Eos % (Auto) 5.3 H Baso % (Auto) Lymph # 0.9 L Wheeler # 0.9 H Eos # 0.6 H Baso # Seg Neutrophils % 79.2 H Seg Neuts % (Manual) Lymphocytes % (Manual) Eosinophils % (Manual) Seg Neutrophils # 9.1 H Lymphocytes # (Manual) Eosinophils # (Manual) PT INR D-Dimer POC ABG pH POC ABG pCO2 POC ABG pO2 ABG pO2 ABG HCO3 ABG Base Excess ABG Hemoglobin Oxyhemoglobin Sodium Potassium Chloride Carbon Dioxide BUN Creatinine Glucose POC Glucose 163 H 146 H Calcium Phosphorus Magnesium ALT Alkaline Phosphatase Total Creatine Kinase CK-MB (CK-2) Rel Index Troponin T Albumin LDL Cholesterol Direct PTH Intact Salicylates Acetaminophen Crossmatch 04/26/19 04/26/19 04/26/19 10:12 12:15 19:00 WBC RBC Hgb Hct MCV MCH MCHC RDW Plt Count Lymph % (Auto) [place] % (Auto) Eos % (Auto) Baso % (Auto) Lymph # [place] # Eos # Baso # Seg Neutrophils % Seg Neuts % (Manual) Lymphocytes % (Manual) Eosinophils % (Manual) Seg Neutrophils # Lymphocytes # (Manual) Eosinophils # (Manual) PT INR D-Dimer POC ABG pH POC ABG pCO2 POC ABG pO2 ABG pO2 ABG HCO3 ABG Base Excess ABG Hemoglobin Oxyhemoglobin Sodium 130 L Potassium Chloride 87.4 L Carbon Dioxide BUN 93 H Creatinine 4.2 H Glucose 140 H POC Glucose 155 H 179 H Calcium Phosphorus Magnesium ALT Alkaline Phosphatase Total Creatine Kinase CK-MB (CK-2) Rel Index Troponin T Albumin LDL Cholesterol Direct PTH Intact Salicylates Acetaminophen Crossmatch 04/27/19 04/27/19 04/27/19 00:23 06:34 17:13 WBC RBC Hgb Hct MCV MCH MCHC RDW Plt Count Lymph % (Auto) [place] % (Auto) Eos % (Auto) Baso % (Auto) Lymph # [place] # Eos # Baso # Seg Neutrophils % Seg Neuts % (Manual) Lymphocytes % (Manual) Eosinophils % (Manual) Seg Neutrophils # Lymphocytes # (Manual) Eosinophils # (Manual) PT INR D-Dimer POC ABG pH POC ABG pCO2 POC ABG pO2 ABG pO2 ABG HCO3 ABG Base Excess ABG Hemoglobin Oxyhemoglobin Sodium Potassium Chloride Carbon Dioxide BUN Creatinine Glucose POC Glucose 158 H 140 H 152 H Calcium Phosphorus Magnesium ALT Alkaline Phosphatase Total Creatine Kinase CK-MB (CK-2) Rel Index Troponin T Albumin LDL Cholesterol Direct PTH Intact Salicylates Acetaminophen Crossmatch 04/27/19 04/28/19 04/28/19 23:50 05:18 11:37 WBC RBC Hgb Hct MCV MCH MCHC RDW Plt Count Lymph % (Auto) [place] % (Auto) Eos % (Auto) Baso % (Auto) Lymph # [place] # Eos # Baso # Seg Neutrophils % Seg Neuts % (Manual) Lymphocytes % (Manual) Eosinophils % (Manual) Seg Neutrophils # Lymphocytes # (Manual) Eosinophils # (Manual) PT INR D-Dimer POC ABG pH POC ABG pCO2 POC ABG pO2 ABG pO2 ABG HCO3 ABG Base Excess ABG Hemoglobin Oxyhemoglobin Sodium Potassium Chloride Carbon Dioxide BUN Creatinine Glucose POC Glucose 160 H 145 H 177 H Calcium Phosphorus Magnesium ALT Alkaline Phosphatase Total Creatine Kinase CK-MB (CK-2) Rel Index Troponin T Albumin LDL Cholesterol Direct PTH Intact Salicylates Acetaminophen Crossmatch 04/28/19 04/28/19 04/29/19 18:31 23:47 05:50 WBC RBC Hgb Hct MCV MCH MCHC RDW Plt Count Lymph % (Auto) [place] % (Auto) Eos % (Auto) Baso % (Auto) Lymph # [place] # Eos # Baso # Seg Neutrophils % Seg Neuts % (Manual) Lymphocytes % (Manual) Eosinophils % (Manual) Seg Neutrophils # Lymphocytes # (Manual) Eosinophils # (Manual) PT INR D-Dimer POC ABG pH POC ABG pCO2 POC ABG pO2 ABG pO2 ABG HCO3 ABG Base Excess ABG Hemoglobin Oxyhemoglobin Sodium Potassium Chloride Carbon Dioxide BUN Creatinine Glucose POC Glucose 153 H 117 H 177 H Calcium Phosphorus Magnesium ALT Alkaline Phosphatase Total Creatine Kinase CK-MB (CK-2) Rel Index Troponin T Albumin LDL Cholesterol Direct PTH Intact Salicylates Acetaminophen Crossmatch 04/29/19 04/30/19 04/30/19 17:04 01:02 06:42 WBC RBC Hgb Hct MCV MCH MCHC RDW Plt Count Lymph % (Auto) [place] % (Auto) Eos % (Auto) Baso % (Auto) Lymph # [place] # Eos # Baso # Seg Neutrophils % Seg Neuts % (Manual) Lymphocytes % (Manual) Eosinophils % (Manual) Seg Neutrophils # Lymphocytes # (Manual) Eosinophils # (Manual) PT INR D-Dimer POC ABG pH POC ABG pCO2 POC ABG pO2 ABG pO2 ABG HCO3 ABG Base Excess ABG Hemoglobin Oxyhemoglobin Sodium Potassium Chloride Carbon Dioxide BUN Creatinine Glucose POC Glucose 205 H 143 H 145 H Calcium Phosphorus Magnesium ALT Alkaline Phosphatase Total Creatine Kinase CK-MB (CK-2) Rel Index Troponin T Albumin LDL Cholesterol Direct PTH Intact Salicylates Acetaminophen Crossmatch 04/30/19 04/30/19 04/30/19 11:31 18:12 23:38 WBC RBC Hgb Hct MCV MCH MCHC RDW Plt Count Lymph % (Auto) [place] % (Auto) Eos % (Auto) Baso % (Auto) Lymph # [place] # Eos # Baso # Seg Neutrophils % Seg Neuts % (Manual) Lymphocytes % (Manual) Eosinophils % (Manual) Seg Neutrophils # Lymphocytes # (Manual) Eosinophils # (Manual) PT INR D-Dimer POC ABG pH POC ABG pCO2 POC ABG pO2 ABG pO2 ABG HCO3 ABG Base Excess ABG Hemoglobin Oxyhemoglobin Sodium Potassium Chloride Carbon Dioxide BUN Creatinine Glucose POC Glucose 162 H 117 H 139 H Calcium Phosphorus Magnesium ALT Alkaline Phosphatase Total Creatine Kinase CK-MB (CK-2) Rel Index Troponin T Albumin LDL Cholesterol Direct PTH Intact Salicylates Acetaminophen Crossmatch 05/01/19 05/01/19 05/02/19 06:06 23:41 05:59 WBC RBC Hgb Hct MCV MCH MCHC RDW Plt Count Lymph % (Auto) Wheeler % (Auto) Eos % (Auto) Baso % (Auto) Lymph # Wheeler # Eos # Baso # Seg Neutrophils % Seg Neuts % (Manual) Lymphocytes % (Manual) Eosinophils % (Manual) Seg Neutrophils # Lymphocytes # (Manual) Eosinophils # (Manual) PT INR D-Dimer POC ABG pH POC ABG pCO2 POC ABG pO2 ABG pO2 ABG HCO3 ABG Base Excess ABG Hemoglobin Oxyhemoglobin Sodium Potassium Chloride Carbon Dioxide BUN Creatinine Glucose POC Glucose 150 H 140 H 130 H Calcium Phosphorus Magnesium ALT Alkaline Phosphatase Total Creatine Kinase CK-MB (CK-2) Rel Index Troponin T Albumin LDL Cholesterol Direct PTH Intact Salicylates Acetaminophen Crossmatch 05/02/19 05/02/19 05/03/19 11:55 18:10 00:15 WBC RBC Hgb Hct MCV MCH MCHC RDW Plt Count Lymph % (Auto) Wheeler % (Auto) Eos % (Auto) Baso % (Auto) Lymph # Wheeler # Eos # Baso # Seg Neutrophils % Seg Neuts % (Manual) Lymphocytes % (Manual) Eosinophils % (Manual) Seg Neutrophils # Lymphocytes # (Manual) Eosinophils # (Manual) PT INR D-Dimer POC ABG pH POC ABG pCO2 POC ABG pO2 ABG pO2 ABG HCO3 ABG Base Excess ABG Hemoglobin Oxyhemoglobin Sodium Potassium Chloride Carbon Dioxide BUN Creatinine Glucose POC Glucose 146 H 141 H 145 H Calcium Phosphorus Magnesium ALT Alkaline Phosphatase Total Creatine Kinase CK-MB (CK-2) Rel Index Troponin T Albumin LDL Cholesterol Direct PTH Intact Salicylates Acetaminophen Crossmatch 05/03/19 05/03/19 05/03/19 05:49 05:49 06:01 WBC RBC 2.84 L Hgb 7.2 L Hct 22.9 L MCV 81 L MCH 26 L MCHC RDW 20.6 H Plt Count 456 H Lymph % (Auto) 11.8 L [place] % (Auto) Eos % (Auto) 10.6 H Baso % (Auto) Lymph # 1.1 L Wheeler # Eos # 1.0 H Baso # Seg Neutrophils % 70.4 H Seg Neuts % (Manual) Lymphocytes % (Manual) Eosinophils % (Manual) Seg Neutrophils # Lymphocytes # (Manual) Eosinophils # (Manual) PT INR D-Dimer POC ABG pH POC ABG pCO2 POC ABG pO2 ABG pO2 ABG HCO3 ABG Base Excess ABG Hemoglobin Oxyhemoglobin Sodium Potassium Chloride 94.8 L Carbon Dioxide BUN 66 H Creatinine 3.6 H Glucose 129 H POC Glucose 135 H Calcium Phosphorus Magnesium ALT Alkaline Phosphatase Total Creatine Kinase CK-MB (CK-2) Rel Index Troponin T Albumin LDL Cholesterol Direct PTH Intact Salicylates Acetaminophen Crossmatch 05/03/19 05/03/19 05/04/19 11:04 18:40 00:06 WBC RBC Hgb Hct MCV MCH MCHC RDW Plt Count Lymph % (Auto) [place] % (Auto) Eos % (Auto) Baso % (Auto) Lymph # Wheeler # Eos # Baso # Seg Neutrophils % Seg Neuts % (Manual) Lymphocytes % (Manual) Eosinophils % (Manual) Seg Neutrophils # Lymphocytes # (Manual) Eosinophils # (Manual) PT INR D-Dimer POC ABG pH POC ABG pCO2 POC ABG pO2 ABG pO2 ABG HCO3 ABG Base Excess ABG Hemoglobin Oxyhemoglobin Sodium Potassium Chloride Carbon Dioxide BUN Creatinine Glucose POC Glucose 191 H 167 H 137 H Calcium Phosphorus Magnesium ALT Alkaline Phosphatase Total Creatine Kinase CK-MB (CK-2) Rel Index Troponin T Albumin LDL Cholesterol Direct PTH Intact Salicylates Acetaminophen Crossmatch 05/04/19 05/04/19 05/04/19 06:44 07:30 07:30 WBC 15.8 H RBC 2.74 L Hgb 6.7 L Hct 22.2 L MCV 81 L MCH 24 L MCHC 30 L RDW 20.4 H Plt Count 450 H Lymph % (Auto) 5.1 L [place] % (Auto) Eos % (Auto) Baso % (Auto) Lymph # 0.8 L [place] # Eos # 0.6 H Baso # Seg Neutrophils % 86.3 H Seg Neuts % (Manual) Lymphocytes % (Manual) Eosinophils % (Manual) Seg Neutrophils # 13.6 H Lymphocytes # (Manual) Eosinophils # (Manual) PT INR D-Dimer POC ABG pH POC ABG pCO2 POC ABG pO2 ABG pO2 ABG HCO3 ABG Base Excess ABG Hemoglobin Oxyhemoglobin Sodium Potassium Chloride 95.2 L Carbon Dioxide BUN 92 H Creatinine 4.8 H Glucose 139 H POC Glucose 153 H Calcium Phosphorus Magnesium ALT Alkaline Phosphatase Total Creatine Kinase CK-MB (CK-2) Rel Index Troponin T Albumin LDL Cholesterol Direct PTH Intact Salicylates Acetaminophen Crossmatch 05/04/19 05/04/19 05/05/19 12:55 16:31 01:02 WBC RBC Hgb Hct MCV MCH MCHC RDW Plt Count Lymph % (Auto) [place] % (Auto) Eos % (Auto) Baso % (Auto) Lymph # Wheeler # Eos # Baso # Seg Neutrophils % Seg Neuts % (Manual) Lymphocytes % (Manual) Eosinophils % (Manual) Seg Neutrophils # Lymphocytes # (Manual) Eosinophils # (Manual) PT INR D-Dimer POC ABG pH POC ABG pCO2 POC ABG pO2 ABG pO2 ABG HCO3 ABG Base Excess ABG Hemoglobin Oxyhemoglobin Sodium Potassium Chloride Carbon Dioxide BUN Creatinine Glucose POC Glucose 169 H 171 H Calcium Phosphorus Magnesium ALT Alkaline Phosphatase Total Creatine Kinase CK-MB (CK-2) Rel Index Troponin T Albumin LDL Cholesterol Direct PTH Intact Salicylates Acetaminophen Crossmatch See Detail 05/05/19 05/05/19 05/05/19 05:26 05:36 11:48 WBC 12.6 H RBC 2.73 L Hgb 6.9 L Hct 22.3 L MCV 82 L MCH 25 L MCHC 31 L RDW 21.0 H Plt Count Lymph % (Auto) 8.9 L [place] % (Auto) Eos % (Auto) Baso % (Auto) Lymph # 1.1 L [place] # 0.9 H Eos # Baso # Seg Neutrophils % 80.7 H Seg Neuts % (Manual) Lymphocytes % (Manual) Eosinophils % (Manual) Seg Neutrophils # 10.2 H Lymphocytes # (Manual) Eosinophils # (Manual) PT INR D-Dimer POC ABG pH POC ABG pCO2 POC ABG pO2 ABG pO2 ABG HCO3 ABG Base Excess ABG Hemoglobin Oxyhemoglobin Sodium Potassium Chloride Carbon Dioxide BUN Creatinine Glucose POC Glucose 153 H 173 H Calcium Phosphorus Magnesium ALT Alkaline Phosphatase Total Creatine Kinase CK-MB (CK-2) Rel Index Troponin T Albumin LDL Cholesterol Direct PTH Intact Salicylates Acetaminophen Crossmatch 05/05/19 05/06/19 05/06/19 16:42 02:24 06:12 WBC RBC Hgb Hct MCV MCH MCHC RDW Plt Count Lymph % (Auto) [place] % (Auto) Eos % (Auto) Baso % (Auto) Lymph # [place] # Eos # Baso # Seg Neutrophils % Seg Neuts % (Manual) Lymphocytes % (Manual) Eosinophils % (Manual) Seg Neutrophils # Lymphocytes # (Manual) Eosinophils # (Manual) PT INR D-Dimer POC ABG pH POC ABG pCO2 POC ABG pO2 ABG pO2 ABG HCO3 ABG Base Excess ABG Hemoglobin Oxyhemoglobin Sodium Potassium Chloride Carbon Dioxide BUN Creatinine Glucose POC Glucose 126 H 138 H 151 H Calcium Phosphorus Magnesium ALT Alkaline Phosphatase Total Creatine Kinase CK-MB (CK-2) Rel Index Troponin T Albumin LDL Cholesterol Direct PTH Intact Salicylates Acetaminophen Crossmatch 05/06/19 05/06/19 05/06/19 08:15 16:48 23:16 WBC 11.8 H RBC 2.72 L Hgb 6.7 L Hct 21.7 L MCV 80 L MCH 25 L MCHC 31 L RDW 20.9 H Plt Count Lymph % (Auto) [place] % (Auto) Eos % (Auto) Baso % (Auto) Lymph # Wheeler # Eos # Baso # Seg Neutrophils % Seg Neuts % (Manual) Lymphocytes % (Manual) Eosinophils % (Manual) Seg Neutrophils # Lymphocytes # (Manual) Eosinophils # (Manual) PT INR D-Dimer POC ABG pH POC ABG pCO2 POC ABG pO2 ABG pO2 ABG HCO3 ABG Base Excess ABG Hemoglobin Oxyhemoglobin Sodium Potassium Chloride Carbon Dioxide BUN Creatinine Glucose POC Glucose 153 H 143 H Calcium Phosphorus Magnesium ALT Alkaline Phosphatase Total Creatine Kinase CK-MB (CK-2) Rel Index Troponin T Albumin LDL Cholesterol Direct PTH Intact Salicylates Acetaminophen Crossmatch 05/07/19 05/07/19 05/07/19 06:00 06:30 12:33 WBC RBC 3.53 L Hgb 9.1 L Hct 28.6 L D MCV 81 L MCH 26 L MCHC RDW 19.1 H Plt Count Lymph % (Auto) 9.6 L [place] % (Auto) Eos % (Auto) 4.8 H Baso % (Auto) Lymph # 1.1 L [place] # Eos # 0.5 H Baso # Seg Neutrophils % 77.8 H Seg Neuts % (Manual) Lymphocytes % (Manual) Eosinophils % (Manual) Seg Neutrophils # 8.6 H Lymphocytes # (Manual) Eosinophils # (Manual) PT INR D-Dimer POC ABG pH POC ABG pCO2 POC ABG pO2 ABG pO2 ABG HCO3 ABG Base Excess ABG Hemoglobin Oxyhemoglobin Sodium Potassium Chloride Carbon Dioxide BUN Creatinine Glucose POC Glucose 122 H 140 H Calcium Phosphorus Magnesium ALT Alkaline Phosphatase Total Creatine Kinase CK-MB (CK-2) Rel Index Troponin T Albumin LDL Cholesterol Direct PTH Intact Salicylates Acetaminophen Crossmatch 05/07/19 05/07/19 05/08/19 16:41 23:55 05:10 WBC 11.6 H RBC 3.54 L Hgb 9.1 L Hct 29.1 L MCV 82 L MCH 26 L MCHC 31 L RDW 19.6 H Plt Count Lymph % (Auto) 6.6 L [place] % (Auto) Eos % (Auto) Baso % (Auto) 1.9 H Lymph # 0.8 L [place] # Eos # Baso # 0.2 H Seg Neutrophils % 82.6 H Seg Neuts % (Manual) Lymphocytes % (Manual) Eosinophils % (Manual) Seg Neutrophils # 9.6 H Lymphocytes # (Manual) Eosinophils # (Manual) PT INR D-Dimer POC ABG pH POC ABG pCO2 POC ABG pO2 ABG pO2 ABG HCO3 ABG Base Excess ABG Hemoglobin Oxyhemoglobin Sodium Potassium Chloride Carbon Dioxide BUN Creatinine Glucose POC Glucose 143 H 153 H Calcium Phosphorus Magnesium ALT Alkaline Phosphatase Total Creatine Kinase CK-MB (CK-2) Rel Index Troponin T Albumin LDL Cholesterol Direct PTH Intact Salicylates Acetaminophen Crossmatch 05/08/19 05/08/19 05/09/19 06:09 16:55 03:27 WBC RBC Hgb Hct MCV MCH MCHC RDW Plt Count Lymph % (Auto) [place] % (Auto) Eos % (Auto) Baso % (Auto) Lymph # [place] # Eos # Baso # Seg Neutrophils % Seg Neuts % (Manual) Lymphocytes % (Manual) Eosinophils % (Manual) Seg Neutrophils # Lymphocytes # (Manual) Eosinophils # (Manual) PT INR D-Dimer POC ABG pH POC ABG pCO2 POC ABG pO2 ABG pO2 ABG HCO3 ABG Base Excess ABG Hemoglobin Oxyhemoglobin Sodium Potassium Chloride Carbon Dioxide BUN Creatinine Glucose POC Glucose 204 H 196 H 175 H Calcium Phosphorus Magnesium ALT Alkaline Phosphatase Total Creatine Kinase CK-MB (CK-2) Rel Index Troponin T Albumin LDL Cholesterol Direct PTH Intact Salicylates Acetaminophen Crossmatch 05/09/19 05/09/19 05/09/19 06:00 11:00 12:41 WBC 12.0 H RBC Hgb 9.7 L Hct 30.2 L MCV 83 L MCH 26 L MCHC RDW 20.1 H Plt Count Lymph % (Auto) 7.4 L [place] % (Auto) 7.6 H Eos % (Auto) Baso % (Auto) Lymph # 0.9 L [place] # 0.9 H Eos # Baso # Seg Neutrophils % 80.7 H Seg Neuts % (Manual) Lymphocytes % (Manual) Eosinophils % (Manual) Seg Neutrophils # 9.7 H Lymphocytes # (Manual) Eosinophils # (Manual) PT INR D-Dimer POC ABG pH POC ABG pCO2 POC ABG pO2 ABG pO2 ABG HCO3 ABG Base Excess ABG Hemoglobin Oxyhemoglobin Sodium Potassium Chloride Carbon Dioxide BUN Creatinine Glucose POC Glucose 172 H 168 H Calcium Phosphorus Magnesium ALT Alkaline Phosphatase Total Creatine Kinase CK-MB (CK-2) Rel Index Troponin T Albumin LDL Cholesterol Direct PTH Intact Salicylates Acetaminophen Crossmatch 05/09/19 05/10/19 05/10/19 17:45 01:26 06:07 WBC RBC Hgb Hct MCV MCH MCHC RDW Plt Count Lymph % (Auto) [place] % (Auto) Eos % (Auto) Baso % (Auto) Lymph # [place] # Eos # Baso # Seg Neutrophils % Seg Neuts % (Manual) Lymphocytes % (Manual) Eosinophils % (Manual) Seg Neutrophils # Lymphocytes # (Manual) Eosinophils # (Manual) PT INR D-Dimer POC ABG pH POC ABG pCO2 POC ABG pO2 ABG pO2 ABG HCO3 ABG Base Excess ABG Hemoglobin Oxyhemoglobin Sodium Potassium Chloride Carbon Dioxide BUN Creatinine Glucose POC Glucose 167 H 174 H 179 H Calcium Phosphorus Magnesium ALT Alkaline Phosphatase Total Creatine Kinase CK-MB (CK-2) Rel Index Troponin T Albumin LDL Cholesterol Direct PTH Intact Salicylates Acetaminophen Crossmatch 05/10/19 05/10/19 05/10/19 06:45 12:31 17:18 WBC RBC Hgb Hct MCV MCH MCHC RDW Plt Count Lymph % (Auto) [place] % (Auto) Eos % (Auto) Baso % (Auto) Lymph # [place] # Eos # Baso # Seg Neutrophils % Seg Neuts % (Manual) Lymphocytes % (Manual) Eosinophils % (Manual) Seg Neutrophils # Lymphocytes # (Manual) Eosinophils # (Manual) PT INR D-Dimer POC ABG pH POC ABG pCO2 POC ABG pO2 ABG pO2 ABG HCO3 ABG Base Excess ABG Hemoglobin Oxyhemoglobin Sodium 134 L Potassium Chloride 90.2 L Carbon Dioxide BUN 82 H Creatinine 4.1 H Glucose 195 H POC Glucose 201 H 197 H Calcium Phosphorus Magnesium ALT Alkaline Phosphatase Total Creatine Kinase CK-MB (CK-2) Rel Index Troponin T Albumin LDL Cholesterol Direct PTH Intact Salicylates Acetaminophen Crossmatch 05/11/19 05/11/19 05/11/19 00:20 06:30 17:38 WBC RBC Hgb Hct MCV MCH MCHC RDW Plt Count Lymph % (Auto) [place] % (Auto) Eos % (Auto) Baso % (Auto) Lymph # [place] # Eos # Baso # Seg Neutrophils % Seg Neuts % (Manual) Lymphocytes % (Manual) Eosinophils % (Manual) Seg Neutrophils # Lymphocytes # (Manual) Eosinophils # (Manual) PT INR D-Dimer POC ABG pH POC ABG pCO2 POC ABG pO2 ABG pO2 ABG HCO3 ABG Base Excess ABG Hemoglobin Oxyhemoglobin Sodium Potassium Chloride Carbon Dioxide BUN Creatinine Glucose POC Glucose 131 H 148 H 198 H Calcium Phosphorus Magnesium ALT Alkaline Phosphatase Total Creatine Kinase CK-MB (CK-2) Rel Index Troponin T Albumin LDL Cholesterol Direct PTH Intact Salicylates Acetaminophen Crossmatch 05/12/19 05/12/19 05/12/19 00:44 06:13 07:15 WBC RBC 3.32 L Hgb 8.7 L Hct 27.8 L MCV MCH 26 L MCHC 31 L RDW 19.8 H Plt Count Lymph % (Auto) 6.9 L [place] % (Auto) Eos % (Auto) 6.5 H Baso % (Auto) Lymph # 0.7 L [place] # Eos # 0.6 H Baso # Seg Neutrophils % 78.6 H Seg Neuts % (Manual) Lymphocytes % (Manual) Eosinophils % (Manual) Seg Neutrophils # 7.8 H Lymphocytes # (Manual) Eosinophils # (Manual) PT INR D-Dimer POC ABG pH POC ABG pCO2 POC ABG pO2 ABG pO2 ABG HCO3 ABG Base Excess ABG Hemoglobin Oxyhemoglobin Sodium Potassium Chloride Carbon Dioxide BUN Creatinine Glucose POC Glucose 170 H 133 H Calcium Phosphorus Magnesium ALT Alkaline Phosphatase Total Creatine Kinase CK-MB (CK-2) Rel Index Troponin T Albumin LDL Cholesterol Direct PTH Intact Salicylates Acetaminophen Crossmatch 05/12/19 05/12/19 05/12/19 07:15 11:17 17:37 WBC RBC Hgb Hct MCV MCH MCHC RDW Plt Count Lymph % (Auto) [place] % (Auto) Eos % (Auto) Baso % (Auto) Lymph # [place] # Eos # Baso # Seg Neutrophils % Seg Neuts % (Manual) Lymphocytes % (Manual) Eosinophils % (Manual) Seg Neutrophils # Lymphocytes # (Manual) Eosinophils # (Manual) PT INR D-Dimer POC ABG pH POC ABG pCO2 POC ABG pO2 ABG pO2 ABG HCO3 ABG Base Excess ABG Hemoglobin Oxyhemoglobin Sodium 135 L Potassium Chloride 94.2 L Carbon Dioxide BUN 59 H Creatinine 3.4 H Glucose 134 H POC Glucose 132 H 165 H Calcium Phosphorus Magnesium ALT Alkaline Phosphatase Total Creatine Kinase CK-MB (CK-2) Rel Index Troponin T Albumin LDL Cholesterol Direct PTH Intact Salicylates Acetaminophen Crossmatch 05/13/19 05/13/19 05/13/19 00:15 05:44 16:00 WBC RBC Hgb Hct MCV MCH MCHC RDW Plt Count Lymph % (Auto) [place] % (Auto) Eos % (Auto) Baso % (Auto) Lymph # [place] # Eos # Baso # Seg Neutrophils % Seg Neuts % (Manual) Lymphocytes % (Manual) Eosinophils % (Manual) Seg Neutrophils # Lymphocytes # (Manual) Eosinophils # (Manual) PT INR D-Dimer POC ABG pH POC ABG pCO2 POC ABG pO2 ABG pO2 ABG HCO3 ABG Base Excess ABG Hemoglobin Oxyhemoglobin Sodium Potassium Chloride Carbon Dioxide BUN Creatinine Glucose POC Glucose 144 H 133 H 221 H Calcium Phosphorus Magnesium ALT Alkaline Phosphatase Total Creatine Kinase CK-MB (CK-2) Rel Index Troponin T Albumin LDL Cholesterol Direct PTH Intact Salicylates Acetaminophen Crossmatch 05/14/19 05/14/19 05/14/19 06:44 11:56 16:42 WBC RBC Hgb Hct MCV MCH MCHC RDW Plt Count Lymph % (Auto) [place] % (Auto) Eos % (Auto) Baso % (Auto) Lymph # [place] # Eos # Baso # Seg Neutrophils % Seg Neuts % (Manual) Lymphocytes % (Manual) Eosinophils % (Manual) Seg Neutrophils # Lymphocytes # (Manual) Eosinophils # (Manual) PT INR D-Dimer POC ABG pH POC ABG pCO2 POC ABG pO2 ABG pO2 ABG HCO3 ABG Base Excess ABG Hemoglobin Oxyhemoglobin Sodium Potassium Chloride Carbon Dioxide BUN Creatinine Glucose POC Glucose 187 H 141 H 183 H Calcium Phosphorus Magnesium ALT Alkaline Phosphatase Total Creatine Kinase CK-MB (CK-2) Rel Index Troponin T Albumin LDL Cholesterol Direct PTH Intact Salicylates Acetaminophen Crossmatch 05/15/19 05/15/19 05/15/19 00:11 05:55 18:46 WBC RBC Hgb Hct MCV MCH MCHC RDW Plt Count Lymph % (Auto) [place] % (Auto) Eos % (Auto) Baso % (Auto) Lymph # Wheeler # Eos # Baso # Seg Neutrophils % Seg Neuts % (Manual) Lymphocytes % (Manual) Eosinophils % (Manual) Seg Neutrophils # Lymphocytes # (Manual) Eosinophils # (Manual) PT INR D-Dimer POC ABG pH POC ABG pCO2 POC ABG pO2 ABG pO2 ABG HCO3 ABG Base Excess ABG Hemoglobin Oxyhemoglobin Sodium Potassium Chloride Carbon Dioxide BUN Creatinine Glucose POC Glucose 169 H 119 H 173 H Calcium Phosphorus Magnesium ALT Alkaline Phosphatase Total Creatine Kinase CK-MB (CK-2) Rel Index Troponin T Albumin LDL Cholesterol Direct PTH Intact Salicylates Acetaminophen Crossmatch 05/16/19 05/16/19 05/16/19 00:18 06:17 12:47 WBC RBC Hgb Hct MCV MCH MCHC RDW Plt Count Lymph % (Auto) [place] % (Auto) Eos % (Auto) Baso % (Auto) Lymph # [place] # Eos # Baso # Seg Neutrophils % Seg Neuts % (Manual) Lymphocytes % (Manual) Eosinophils % (Manual) Seg Neutrophils # Lymphocytes # (Manual) Eosinophils # (Manual) PT INR D-Dimer POC ABG pH POC ABG pCO2 POC ABG pO2 ABG pO2 ABG HCO3 ABG Base Excess ABG Hemoglobin Oxyhemoglobin Sodium Potassium Chloride Carbon Dioxide BUN Creatinine Glucose POC Glucose 201 H 149 H 207 H Calcium Phosphorus Magnesium ALT Alkaline Phosphatase Total Creatine Kinase CK-MB (CK-2) Rel Index Troponin T Albumin LDL Cholesterol Direct PTH Intact Salicylates Acetaminophen Crossmatch 05/16/19 05/17/19 05/17/19 17:48 00:01 06:26 WBC RBC Hgb Hct MCV MCH MCHC RDW Plt Count Lymph % (Auto) [place] % (Auto) Eos % (Auto) Baso % (Auto) Lymph # [place] # Eos # Baso # Seg Neutrophils % Seg Neuts % (Manual) Lymphocytes % (Manual) Eosinophils % (Manual) Seg Neutrophils # Lymphocytes # (Manual) Eosinophils # (Manual) PT INR D-Dimer POC ABG pH POC ABG pCO2 POC ABG pO2 ABG pO2 ABG HCO3 ABG Base Excess ABG Hemoglobin Oxyhemoglobin Sodium Potassium Chloride Carbon Dioxide BUN Creatinine Glucose POC Glucose 183 H 176 H 177 H Calcium Phosphorus Magnesium ALT Alkaline Phosphatase Total Creatine Kinase CK-MB (CK-2) Rel Index Troponin T Albumin LDL Cholesterol Direct PTH Intact Salicylates Acetaminophen Crossmatch 05/17/19 05/17/19 05/18/19 12:19 17:45 00:30 WBC RBC Hgb Hct MCV MCH MCHC RDW Plt Count Lymph % (Auto) [place] % (Auto) Eos % (Auto) Baso % (Auto) Lymph # Wheeler # Eos # Baso # Seg Neutrophils % Seg Neuts % (Manual) Lymphocytes % (Manual) Eosinophils % (Manual) Seg Neutrophils # Lymphocytes # (Manual) Eosinophils # (Manual) PT INR D-Dimer POC ABG pH POC ABG pCO2 POC ABG pO2 ABG pO2 ABG HCO3 ABG Base Excess ABG Hemoglobin Oxyhemoglobin Sodium Potassium Chloride Carbon Dioxide BUN Creatinine Glucose POC Glucose 174 H 171 H 181 H Calcium Phosphorus Magnesium ALT Alkaline Phosphatase Total Creatine Kinase CK-MB (CK-2) Rel Index Troponin T Albumin LDL Cholesterol Direct PTH Intact Salicylates Acetaminophen Crossmatch 05/18/19 05/18/19 05/19/19 06:18 16:53 00:19 WBC RBC Hgb Hct MCV MCH MCHC RDW Plt Count Lymph % (Auto) [place] % (Auto) Eos % (Auto) Baso % (Auto) Lymph # Wheeler # Eos # Baso # Seg Neutrophils % Seg Neuts % (Manual) Lymphocytes % (Manual) Eosinophils % (Manual) Seg Neutrophils # Lymphocytes # (Manual) Eosinophils # (Manual) PT INR D-Dimer POC ABG pH POC ABG pCO2 POC ABG pO2 ABG pO2 ABG HCO3 ABG Base Excess ABG Hemoglobin Oxyhemoglobin Sodium Potassium Chloride Carbon Dioxide BUN Creatinine Glucose POC Glucose 165 H 166 H 207 H Calcium Phosphorus Magnesium ALT Alkaline Phosphatase Total Creatine Kinase CK-MB (CK-2) Rel Index Troponin T Albumin LDL Cholesterol Direct PTH Intact Salicylates Acetaminophen Crossmatch 05/19/19 05/19/19 05/19/19 01:00 01:00 05:15 WBC 11.6 H RBC 3.12 L Hgb 7.9 L Hct 25.9 L MCV 83 L MCH 25 L MCHC 31 L RDW 21.1 H Plt Count Lymph % (Auto) [place] % (Auto) Eos % (Auto) Baso % (Auto) Lymph # Wheeler # Eos # Baso # Seg Neutrophils % Seg Neuts % (Manual) Lymphocytes % (Manual) Eosinophils % (Manual) Seg Neutrophils # Lymphocytes # (Manual) Eosinophils # (Manual) PT INR D-Dimer POC ABG pH POC ABG pCO2 POC ABG pO2 ABG pO2 ABG HCO3 ABG Base Excess ABG Hemoglobin Oxyhemoglobin Sodium 135 L Potassium Chloride 93.6 L Carbon Dioxide BUN 64 H Creatinine 2.8 H Glucose 194 H POC Glucose 176 H Calcium Phosphorus Magnesium ALT Alkaline Phosphatase Total Creatine Kinase CK-MB (CK-2) Rel Index Troponin T Albumin LDL Cholesterol Direct PTH Intact Salicylates Acetaminophen Crossmatch 05/19/19 05/19/19 05/20/19 11:21 18:48 00:01 WBC RBC Hgb Hct MCV MCH MCHC RDW Plt Count Lymph % (Auto) [place] % (Auto) Eos % (Auto) Baso % (Auto) Lymph # [place] # Eos # Baso # Seg Neutrophils % Seg Neuts % (Manual) Lymphocytes % (Manual) Eosinophils % (Manual) Seg Neutrophils # Lymphocytes # (Manual) Eosinophils # (Manual) PT INR D-Dimer POC ABG pH POC ABG pCO2 POC ABG pO2 ABG pO2 ABG HCO3 ABG Base Excess ABG Hemoglobin Oxyhemoglobin Sodium Potassium Chloride Carbon Dioxide BUN Creatinine Glucose POC Glucose 162 H 140 H 200 H Calcium Phosphorus Magnesium ALT Alkaline Phosphatase Total Creatine Kinase CK-MB (CK-2) Rel Index Troponin T Albumin LDL Cholesterol Direct PTH Intact Salicylates Acetaminophen Crossmatch 05/20/19 05/20/19 05/21/19 05:58 17:50 00:43 WBC RBC Hgb Hct MCV MCH MCHC RDW Plt Count Lymph % (Auto) [place] % (Auto) Eos % (Auto) Baso % (Auto) Lymph # [place] # Eos # Baso # Seg Neutrophils % Seg Neuts % (Manual) Lymphocytes % (Manual) Eosinophils % (Manual) Seg Neutrophils # Lymphocytes # (Manual) Eosinophils # (Manual) PT INR D-Dimer POC ABG pH POC ABG pCO2 POC ABG pO2 ABG pO2 ABG HCO3 ABG Base Excess ABG Hemoglobin Oxyhemoglobin Sodium Potassium Chloride Carbon Dioxide BUN Creatinine Glucose POC Glucose 132 H 154 H 165 H Calcium Phosphorus Magnesium ALT Alkaline Phosphatase Total Creatine Kinase CK-MB (CK-2) Rel Index Troponin T Albumin LDL Cholesterol Direct PTH Intact Salicylates Acetaminophen Crossmatch 05/21/19 05/21/19 05/21/19 06:06 11:15 17:04 WBC RBC Hgb Hct MCV MCH MCHC RDW Plt Count Lymph % (Auto) [place] % (Auto) Eos % (Auto) Baso % (Auto) Lymph # [place] # Eos # Baso # Seg Neutrophils % Seg Neuts % (Manual) Lymphocytes % (Manual) Eosinophils % (Manual) Seg Neutrophils # Lymphocytes # (Manual) Eosinophils # (Manual) PT INR D-Dimer POC ABG pH POC ABG pCO2 POC ABG pO2 ABG pO2 ABG HCO3 ABG Base Excess ABG Hemoglobin Oxyhemoglobin Sodium Potassium Chloride Carbon Dioxide BUN Creatinine Glucose POC Glucose 178 H 218 H 135 H Calcium Phosphorus Magnesium ALT Alkaline Phosphatase Total Creatine Kinase CK-MB (CK-2) Rel Index Troponin T Albumin LDL Cholesterol Direct PTH Intact Salicylates Acetaminophen Crossmatch 05/21/19 05/22/19 05/22/19 23:25 06:09 18:32 WBC RBC Hgb Hct MCV MCH MCHC RDW Plt Count Lymph % (Auto) [place] % (Auto) Eos % (Auto) Baso % (Auto) Lymph # [place] # Eos # Baso # Seg Neutrophils % Seg Neuts % (Manual) Lymphocytes % (Manual) Eosinophils % (Manual) Seg Neutrophils # Lymphocytes # (Manual) Eosinophils # (Manual) PT INR D-Dimer POC ABG pH POC ABG pCO2 POC ABG pO2 ABG pO2 ABG HCO3 ABG Base Excess ABG Hemoglobin Oxyhemoglobin Sodium Potassium Chloride Carbon Dioxide BUN Creatinine Glucose POC Glucose 221 H 140 H 216 H Calcium Phosphorus Magnesium ALT Alkaline Phosphatase Total Creatine Kinase CK-MB (CK-2) Rel Index Troponin T Albumin LDL Cholesterol Direct PTH Intact Salicylates Acetaminophen Crossmatch 05/22/19 05/23/19 05/23/19 23:56 05:23 12:46 WBC RBC Hgb Hct MCV MCH MCHC RDW Plt Count Lymph % (Auto) [place] % (Auto) Eos % (Auto) Baso % (Auto) Lymph # [place] # Eos # Baso # Seg Neutrophils % Seg Neuts % (Manual) Lymphocytes % (Manual) Eosinophils % (Manual) Seg Neutrophils # Lymphocytes # (Manual) Eosinophils # (Manual) PT INR D-Dimer POC ABG pH POC ABG pCO2 POC ABG pO2 ABG pO2 ABG HCO3 ABG Base Excess ABG Hemoglobin Oxyhemoglobin Sodium Potassium Chloride Carbon Dioxide BUN Creatinine Glucose POC Glucose 177 H 188 H 165 H Calcium Phosphorus Magnesium ALT Alkaline Phosphatase Total Creatine Kinase CK-MB (CK-2) Rel Index Troponin T Albumin LDL Cholesterol Direct PTH Intact Salicylates Acetaminophen Crossmatch 05/23/19 05/24/19 05/24/19 17:36 00:06 06:51 WBC RBC Hgb Hct MCV MCH MCHC RDW Plt Count Lymph % (Auto) [place] % (Auto) Eos % (Auto) Baso % (Auto) Lymph # [place] # Eos # Baso # Seg Neutrophils % Seg Neuts % (Manual) Lymphocytes % (Manual) Eosinophils % (Manual) Seg Neutrophils # Lymphocytes # (Manual) Eosinophils # (Manual) PT INR D-Dimer POC ABG pH POC ABG pCO2 POC ABG pO2 ABG pO2 ABG HCO3 ABG Base Excess ABG Hemoglobin Oxyhemoglobin Sodium Potassium Chloride Carbon Dioxide BUN Creatinine Glucose POC Glucose 204 H 155 H 169 H Calcium Phosphorus Magnesium ALT Alkaline Phosphatase Total Creatine Kinase CK-MB (CK-2) Rel Index Troponin T Albumin LDL Cholesterol Direct PTH Intact Salicylates Acetaminophen Crossmatch 05/24/19 05/24/19 05/25/19 11:33 17:47 00:03 WBC RBC Hgb Hct MCV MCH MCHC RDW Plt Count Lymph % (Auto) Wheeler % (Auto) Eos % (Auto) Baso % (Auto) Lymph # Wheeler # Eos # Baso # Seg Neutrophils % Seg Neuts % (Manual) Lymphocytes % (Manual) Eosinophils % (Manual) Seg Neutrophils # Lymphocytes # (Manual) Eosinophils # (Manual) PT INR D-Dimer POC ABG pH POC ABG pCO2 POC ABG pO2 ABG pO2 ABG HCO3 ABG Base Excess ABG Hemoglobin Oxyhemoglobin Sodium Potassium Chloride Carbon Dioxide BUN Creatinine Glucose POC Glucose 158 H 120 H 142 H Calcium Phosphorus Magnesium ALT Alkaline Phosphatase Total Creatine Kinase CK-MB (CK-2) Rel Index Troponin T Albumin LDL Cholesterol Direct PTH Intact Salicylates Acetaminophen Crossmatch 05/25/19 05:34 WBC RBC Hgb Hct MCV MCH MCHC RDW Plt Count Lymph % (Auto) Wheeler % (Auto) Eos % (Auto) Baso % (Auto) Lymph # Wheeler # Eos # Baso # Seg Neutrophils % Seg Neuts % (Manual) Lymphocytes % (Manual) Eosinophils % (Manual) Seg Neutrophils # Lymphocytes # (Manual) Eosinophils # (Manual) PT INR D-Dimer POC ABG pH POC ABG pCO2 POC ABG pO2 ABG pO2 ABG HCO3 ABG Base Excess ABG Hemoglobin Oxyhemoglobin Sodium Potassium Chloride Carbon Dioxide BUN Creatinine Glucose POC Glucose 128 H Calcium Phosphorus Magnesium ALT Alkaline Phosphatase Total Creatine Kinase CK-MB (CK-2) Rel Index Troponin T Albumin LDL Cholesterol Direct PTH Intact Salicylates Acetaminophen Crossmatch
[2019-05-25] MEDS: SERTRALINE 100 MG TAB PO SCH (14:21)
[2019-05-25] MEDS: FAMOTIDINE 20 MG TAB PO SCH (14:22)
[2019-05-25] MEDS: risperiDONE 1 MG TAB PO SCH (14:23)
[2019-05-25] MEDS: SODIUM HYPOCHLORITE, DAKIN'S 1/2 STRENGTH (0.25%) 473 ML TOPICAL SOLN TP SCH ×2 (14:25→22:20)
--- NOTE | 2019-05-25 15:19 | Progress Note ---
Assessment and Plan Cultures: Blood cultures 12/26/2018 no growth today. Blood cultures 01/01/2019 no growth today. Wound cultures 01/02/2019 ESBL Kleb, MDR Ecoli and E raffinosus resistant to penicillin. 03/14 Sputum Cx: MDR Acinetobacter 03/14 BCx: NGTD 03/17 Sputum CX: MDR Acinetobacter 05/19 sputum Cx - unfit for culture Assessment: 63 y/o male with history of ESRD on HD, HTN, CAD S/P CABG, CVA, DM, Atrial Fib, Anemia, Hyperparathyroidism, Hypocalcemia, schizophrenia; well known to ID service from previous admissions, most recently on 12/26/2018 due to sepsis from unstagable necrotic sacral decubitus s/p OR on 01/01/2019 for open excisional debridement of necrotic sacral wound with ESBL Kleb, MDR Ecoli, treated with Meropenem 1 gm IV every 24 hours via tunneled catheter and Vancomycin 1 gm post HD Saturday, and Saturday for 6 weeks ending 02-16-19; readmitted: 1. Sepsis: again with fevers and leukocytosis, tachycardia. Would assume repeat tracheitis. Obtain sputum cultures. Given his history of MDR I would avoid empiric antibiotics as we have so few options left. Will give targeted antibiotics pending sputum results. Strongly need to consider hospice. 2. Hypoxic respiratory failure - per pulmonary. off vent. Capping trials 3. DM2 4. Left 5th finger pressure ulcer: not infected 5. Sacral stage IV ulcer s/p extensive treatment - NOT infected currently; treated with Meropenem 1 gm IV every 24 hours via tunneled catheter and Vancomycin 1 gm post HD Saturday, and Saturday for 6 weeks ending 02-16-19 6. ESRD on HD Recommendations: - sputum cultures with >10 epithelial cells. had a low grade temperature. Given his co-morbidities this may continue to recur. If persistent fevers - Would not start antibiotics in the absence of culture data. Fevers have not recurred. - contact precautions - consider hospice, he will continue to develop worsening resistance and we will exhaust all therapeutic options for Acinetobacter very quicky. Will follow. Sherman Shirley MD [facility] M: [phone] O: [phone] F: [phone] Subjective Date of service: 05/25/19 Principal diagnosis: Respiratory failure, acute on chronic systolic HF, ESRD Interval history: No acute change at present. Objective - Exam Narrative Exam: Constitutional: Alert, cooperative. No acute distress Neck: Supple, no meningeal signs. Trach in place. Oral: dentition fair, no thrush Cardiovascular: S1, S2 normal. Respiratory: Good air entry, clear to auscultation bilaterally GI: Soft, non-tender; bowel sounds normal. No peritoneal signs. Musculoskeletal: No pedal edema, no cyanosis. Skin: No rash or abscess Neurological: Awake, trached. No gross abnormality - Constitutional Vitals: Vital Signs Temp Pulse Resp BP Pulse Ox 99.3 F 96 H 16 116/56 96 05/25/19 13:20 05/25/19 13:20 05/25/19 13:20 05/25/19 13:20 05/25/19 05:28 Temperature -Last 24 Hours Temperature 99.3 F Temperature 99.4 F Temperature 100.3 F Temperature 99.3 F Temperature 99.8 F Temperature 99 F - Labs CBC & Chem 7: 05/19/19 01:00 05/19/19 01:00 Labs: Abnormal lab results 05/24/19 05/25/19 05/25/19 Range/Units 17:47 00:03 05:34 POC Glucose 120 H 142 H 128 H (70-105) 05/25/19 Range/Units 14:37 POC Glucose 199 H (70-105)
[2019-05-26] MEDS: INSULIN REGULAR, HUMAN 100 UNITS/1 ML SUB-Q SCH ×4 (01:05→17:56)
--- NOTE | 2019-05-26 08:32 | Progress Note ---
Subjective Principal diagnosis: Respiratory failure, acute on chronic systolic HF, ESRD Interval history: Patient was seen today for follow-up on multiple renal related issues Events of this hospitalization were noted Patient has had hemodialysis treatment yesterday Status post infectious disease evaluation Vitals intake output medications were reviewed Past medical history: Reviewed Family, social history: Reviewed Allergies: Reviewed Physical examination General: No acute distress Vitals: Reviewed HEENT: Oral mucosa moist no icterus Neck: Supple no thyromegaly nodular mass or JVD Chest: Clear to auscultation anteriorly Heart: Regular rate and rhythm S1-S2 heard no S3-S4 Abdomen: Soft nontender no suprapubic masses no organomegaly Extremity: Dry skin less than 1+ edema Psych: No evidence of any agitation and aggression noted Assessment and plan: ESRD continue with hemodialysis treatment 3 times per week only as tolerated Patient has had hemodialysis treatment yesterday Discussed with Sunday dialysis nurse yesterday as well to keep ultrafiltration goal between 11 0.5 L Avoid any hypotension tachycardia bradycardia monitor closely as patient's prognosis as if this is not good, His mortality risk is high as such, his prognosis is very poor, since family has chosen to pursue with ongoing dialysis this can be only provided as long as patient is stable Patient is already on erythropoietin 20,000 units for anemia We will continue to monitor dialysis related labs periodically Dialysis access is a left arm AV graft Patient has been noted to have low-grade fever 100.3, this could be multifactorial, and must be monitored Dialysis nurse to monitor blood pressure and heart rate very closely on dial ysis, hemodialysis only as tolerated Overall prognosis appears to be very poor patient in my opinion appears to be hospice appropriate and his mortality risk is very high His quality of life is also very poor Multiple underlying comorbidities We'll continue to follow and make recommendation from renal standpoint Objective - Vital Signs Vital signs: Vital Signs - 12hr 05/25/19 05/26/19 23:48 06:14 Temperature 99.0 F Pulse Rate 116 H 124 H Respiratory 20 19 Rate Blood Pressure 111/65 122/68 O2 Sat by Pulse 97 100 Oximetry - Lab 05/19/19 01:00 05/19/19 01:00 Most recent lab results ABG pH 7.424 pH Units (7.350-7.450) 03/19/19 04:23 ABG pCO2 48.0 mm Hg 03/19/19 04:23 ABG pO2 78.3 mm Hg (80.0-90.0) L 03/19/19 04:23 ABG HCO3 30.7 mmol/L (20.0-26.0) H 03/19/19 04:23 ABG O2 Saturation 97.0 % (95.0-99.0) 03/19/19 04:23 Calcium 9.5 mg/dL (8.4-10.2) 05/19/19 01:00 Phosphorus 4.30 mg/dL (2.5-4.5) D 03/31/19 10:26 Magnesium 2.70 mg/dL (1.7-2.3) H 03/30/19 10:13 Medications & Allergies - Medications Allergies/Adverse Reactions: Allergies haloperidol [From Haldol] Adverse Reaction (Verified 03/13/18 12:10) Unknown haloperidol lactate [From Haldol] Adverse Reaction (Verified 03/13/18 12:10) Unknown Home Medications: Home Medications Medication Instructions Recorded Confirmed Last Taken Type risperiDONE [RisperDAL] 1 mg PO QAM 03/13/18 02/21/19 Unknown History Sertraline [Zoloft] 100 mg PO QDAY 08/26/18 02/21/19 Unknown History Polyethylene Glycol 3350 [Miralax 17 gm PO QDAY #30 packet 11/05/18 02/21/19 Unknown Rx 3350] Aspirin EC [Halfprin EC] 81 mg PO DAILY #30 11/19/18 02/21/19 Unknown Rx Docusate Sodium [Colace CAP] 100 mg PO BID #60 11/19/18 02/21/19 Unknown Rx Folic Acid [Folvite] 1 mg PO DAILY #30 tab 11/19/18 02/21/19 Unknown Rx Famotidine [Pepcid] 20 mg PO DAILY tablet 12/08/18 02/21/19 Unknown Rx Gabapentin 100 mg PO QHS capsule 12/08/18 02/21/19 Unknown Rx Metoprolol [Lopressor TAB] 50 mg PO BID 30 Days tablet 12/08/18 02/21/19 Unknown Rx Sevelamer Carbonate [Renvela] 800 mg PO TIDWM tablet 12/08/18 02/21/19 Unknown Rx hydrALAZINE [Apresoline TAB] 100 mg PO Q8HR #120 tablet 12/08/18 02/21/19 Unknown Rx Acetaminophen [Acetaminophen TAB] 650 mg PO Q12H PRN 12/15/18 02/21/19 Unknown History Glucagon,Human Recombinant 1 mg IJ Q15MIN PRN 12/15/18 02/21/19 Unknown History [Glucagon Emergency Kit] Insulin Aspart [NovoLOG 100 See Protocol SQ QWEEK 12/15/18 02/21/19 Unknown History UNITS/ML VIAL] Active Medications: Generic Name Dose Route Start Last Admin Trade Name Freq PRN Reason Stop Dose Admin Acetaminophen 650 mg 05/18/19 23:33 05/25/19 07:07 Tylenol PO 650 mg Q6HR PRN Administration PAIN Albuterol/Ipratropium 1 ampul 02/24/19 20:00 05/25/19 19:45 Duoneb *Not For Prn Use* IH 1 ampul TIDRT SANCHEZ Administration Lipase/Protease/Amylase 1 each 04/10/19 15:16 Pancreaze 10,500 Unit FEEDTUBE PRN PRN For Clogged Feeding Tube Epoetin Solitario 20,000 unit 03/24/19 11:17 05/25/19 11:08 Procrit IV 20,000 unit UMA PRN Administration hemodialysis Famotidine 20 mg 02/23/19 10:00 05/25/19 14:22 Pepcid PO 20 mg DAILY SANCHEZ Administration Sodium Chloride 100 mls @ 999 mls/hr 05/13/19 12:45 Nacl 0.9% IV UMA PRN Hypotension Insulin Human Regular 0 units 02/26/19 12:00 05/26/19 06:23 Humulin R SUB-Q Not Given Q6HR [facility] Protocol Metoprolol Tartrate 2.5 mg 02/28/19 12:06 03/15/19 05:15 Lopressor IV 2.5 mg Q4HR PRN Administration Tachycardia Risperidone 1 mg 02/25/19 13:00 05/25/19 14:23 Risperdal PO 1 mg DAILY SANCHEZ Administration Sertraline HCl 100 mg 02/25/19 13:00 05/25/19 14:21 Zoloft PO 100 mg DAILY SANCHEZ Administration Simple Syrup 15 ml 04/10/19 15:16 Simple Syrup FEEDTUBE PRN PRN Hypoglycemia Simple Syrup 30 ml 04/10/19 15:16 Simple Syrup FEEDTUBE PRN PRN Hypoglycemia Sodium Bicarbonate 325 mg 04/10/19 15:16 Sodium Bicarbonate FEEDTUBE PRN PRN For Clogged Feeding Tube Sodium Hypochlorite 1 applic 04/01/19 13:00 05/25/19 22:20 Dakin's Half Strength TP 1 applicatio BID SANCHEZ Administration
[2019-05-26] MEDS: IPRATROPIUM/ALBUTEROL SULFATE 3 ML AMPUL.NEB IH SCH ×3 (09:00→20:23)
[2019-05-26] MEDS: SODIUM HYPOCHLORITE, DAKIN'S 1/2 STRENGTH (0.25%) 473 ML TOPICAL SOLN TP SCH ×2 (09:50→22:55)
[2019-05-26] MEDS: SERTRALINE 100 MG TAB PO SCH (09:51)
[2019-05-26] MEDS: FAMOTIDINE 20 MG TAB PO SCH (09:51)
[2019-05-26] MEDS: risperiDONE 1 MG TAB PO SCH (09:51)
--- NOTE | 2019-05-26 14:09 | Progress Note ---
Assessment and Plan Cultures: Blood cultures 12/26/2018 no growth today. Blood cultures 01/01/2019 no growth today. Wound cultures 01/02/2019 ESBL Kleb, MDR Ecoli and E raffinosus resistant to penicillin. 03/14 Sputum Cx: MDR Acinetobacter 03/14 BCx: NGTD 03/17 Sputum CX: MDR Acinetobacter 05/19 sputum Cx - unfit for culture Assessment: 63 y/o male with history of ESRD on HD, HTN, CAD S/P CABG, CVA, DM, Atrial Fib, Anemia, Hyperparathyroidism, Hypocalcemia, schizophrenia; well known to ID service from previous admissions, most recently on 12/26/2018 due to sepsis from unstagable necrotic sacral decubitus s/p OR on 01/01/2019 for open excisional debridement of necrotic sacral wound with ESBL Kleb, MDR Ecoli, treated with Meropenem 1 gm IV every 24 hours via tunneled catheter and Vancomycin 1 gm post HD Saturday, and Saturday for 6 weeks ending 02-16-19; readmitted: 1. Sepsis: again with fevers and leukocytosis, tachycardia. Would assume repeat tracheitis. Obtain sputum cultures. Given his history of MDR I would avoid empiric antibiotics as we have so few options left. Will give targeted antibiotics pending sputum results. Strongly need to consider hospice. 2. Hypoxic respiratory failure - per pulmonary. off vent. Capping trials 3. DM2 4. Left 5th finger pressure ulcer: not infected 5. Sacral stage IV ulcer s/p extensive treatment - NOT infected currently; treated with Meropenem 1 gm IV every 24 hours via tunneled catheter and Vancomycin 1 gm post HD Saturday, and Saturday for 6 weeks ending 02-16-19 6. ESRD on HD Recommendations: - sputum cultures with >10 epithelial cells. had a low grade temperature. Given his co-morbidities this may continue to recur. If persistent fevers - Would not start antibiotics in the absence of culture data. Fevers have not recurred. - contact precautions - consider hospice, he will continue to develop worsening resistance and we will exhaust all therapeutic options for Acinetobacter very quicky. Will follow. Sherman Shirley MD [facility] M: [phone] O: [phone] F: [phone] Subjective Date of service: 05/26/19 Principal diagnosis: Respiratory failure, acute on chronic systolic HF, ESRD Interval history: No acute change at present. Objective - Exam Narrative Exam: Constitutional: Alert, cooperative. No acute distress Neck: Supple, no meningeal signs. Trach in place. Oral: dentition fair, no thrush Cardiovascular: S1, S2 normal. Respiratory: Good air entry, clear to auscultation bilaterally GI: Soft, non-tender; bowel sounds normal. No peritoneal signs. Musculoskeletal: No pedal edema, no cyanosis. Skin: No rash or abscess Neurological: Awake, trached. No gross abnormality - Constitutional Vitals: Vital Signs Temp Pulse Resp BP Pulse Ox 99.0 F 97 H 18 122/68 97 05/26/19 06:14 05/26/19 09:03 05/26/19 09:03 05/26/19 06:14 05/26/19 09:02 Temperature -Last 24 Hours Temperature 99.0 F Temperature 98.0 F - Labs CBC & Chem 7: 05/19/19 01:00 05/19/19 01:00 Labs: Abnormal lab results 05/25/19 05/25/19 05/26/19 Range/Units 14:37 17:34 06:21 POC Glucose 199 H 185 H 110 H (70-105) 05/26/19 Range/Units 11:39 POC Glucose 129 H (70-105)
--- NOTE | 2019-05-26 16:54 | Progress Note ---
Assessment and Plan Assessment and plan: Patient is a 63-year-old -[place] man from [facility] with a plethora of co-morbidities including blindness, CVA, CHF, PPM/ICD, loop recorder since 2012 that is MRI compatible, IDDM type 2, sepsis left foot ulcer, afib, ESRD with complications on HD TTS, hypertension, AOCD and GERD who presented to the ED with hypotensive after intubation in the emergency room. Still intubated, diagnosed with fluid overload, pleural effusion. Patient has had recurrent admission in the hospital for similar reason and was recently discharged from the hospital following treatment of Severe Sepsis due to Necrotizing Unstagable sacral decubitus ulcer with ostemomylitis, expected to complete abx on discharg e till 02/16/19. Trach and peg done HR control improved with change in BB. Acute respiratory failure on mechanical ventilator >96 hrs Trach placed on 03/03/19 Pulm consult appreciated weaning trial VAP BUNDLE ASPIRATION BUNDLE Continue T-piece Finished therapy for Acinetobacter Acute pulmonary edema, fluid overload on CXR repeat xray intermittently Dialysis Necrotizing Unstagable sacral decubitus ulcer with ostemomyelitis Wound care, Dilated CMP Cardiomyiopathy EF 35-40% Continue diuresis PPM/ICD Acute encephalopathy, probably metabolic or toxic Continues on Mechanical ventilator. ESRD on hemodialysis nephrology following Vascular eval. done re: LUE AV graft, see note Bilateral pleural effusions Anticipate improvement with Permanent atrial fibrillation and flutter Not on anticoagulation because of anemia thrombocytopenia Change noted to BB agent to IV. Diabetes mellitus type 2 Fingerstick Q4h NSTEMI type 2 Cardiology following Schizophrenia continue home meds Legally blind supportive care hypertension Monitor BP Hypokalemia resolved Pulmonary hypertension by history Dysphagia s/p PEG tube Severe malnutrition/hypoalbuminemia with FTT: 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, brusher machine following PEG placed on 01/02/19 Decubitus ulcer s/;p colostomy wound care consult History of sacral osteomyelitis and LE ulcers Completed Antibiotics Place on contact isolation for ESBL Klebsiella pneumonia on wound culture 01/02/19 h/o Peripheral neuropathy: Continue gabapentin Anemia of chronic disease -s/p total of 8 units PRBC, follow cbc- no occult GI bleed noted. -Pt is s/p x1 DDVAP RUL atelectasis, nebs as needed DVT prophylaxis Lovenox DNR poor prognosis Disposition: Awaiting on HD setup History Interval history: Patient was seen and examined. Follow-up on current diagnosis. No overnight events reported to me. Patient is mainly nonverbal. Imaging, nursing note, chart, labs and old chart reviewed. Hospitalist Physical - Physical exam Narrative exam: Gen: severely disable, nad, awake alert x 1 HEENT: NCAT, EOMI, PERRL, OP Clear Neck: supple, trach CVS/Heart: irreg irregular, normal S1S2, pulses present bilaterally Chest/Lungs: diminished bs ymmetrical chest expansion, good air entry bilaterally GI/Abdomen:peg, colostomy present, good bowel sounds, no guarding or rebound /Bladder: no suprapubic tenderness, no CVA or paraspinal tenderness Extermity/Skin: no c/c/e, no obvious rash MSK: no FROM x 4 Neuro: CN 2-12 grossly intact except vision, no new focal deficits Psych: calm - Constitutional Vitals: Temp Pulse Resp BP Pulse Ox 99.0 F 92 H 20 122/68 97 05/26/19 06:14 05/26/19 14:21 05/26/19 14:21 05/26/19 06:14 05/26/19 14:27 General appearance: Present: no acute distress, other (T peace). Absent: well- nourished Results - Labs CBC & Chem 7: 05/19/19 01:00 05/19/19 01:00 Labs: Laboratory Last Values WBC 11.6 K/mm3 (4.5-11.0) H 05/19/19 01:00 RBC 3.12 M/mm3 (3.65-5.03) L 05/19/19 01:00 Hgb 7.9 gm/dl (11.8-15.2) L 05/19/19 01:00 Hct 25.9 % (35.5-45.6) L 05/19/19 01:00 MCV 83 fl (84-94) L 05/19/19 01:00 MCH 25 pg (28-32) L 05/19/19 01:00 MCHC 31 % (32-34) L 05/19/19 01:00 RDW 21.1 % (13.2-15.2) H 05/19/19 01:00 Plt Count 386 K/mm3 (140-440) 05/19/19 01:00 Lymph % (Auto) 6.9 % (13.4-35.0) L 05/12/19 07:15 Roberts % (Auto) 7.3 % (0.0-7.3) 05/12/19 07:15 Eos % (Auto) 6.5 % (0.0-4.3) H 05/12/19 07:15 Baso % (Auto) 0.7 % (0.0-1.8) 05/12/19 07:15 Lymph # 0.7 K/mm3 (1.2-5.4) L 05/12/19 07:15 Roberts # 0.7 K/mm3 (0.0-0.8) 05/12/19 07:15 Eos # 0.6 K/mm3 (0.0-0.4) H 05/12/19 07:15 Baso # 0.1 K/mm3 (0.0-0.1) 05/12/19 07:15 Add Manual Diff Complete 03/21/19 06:30 Total Counted 100 03/21/19 06:30 Seg Neutrophils % 78.6 % (40.0-70.0) H 05/12/19 07:15 Seg Neuts % (Manual) 81.0 % (40.0-70.0) H 03/21/19 06:30 Band Neutrophils % 0 % 03/21/19 06:30 Lymphocytes % (Manual) 8.0 % (13.4-35.0) L 03/21/19 06:30 Reactive Lymphs % (Man) 0 % 03/21/19 06:30 Monocytes % (Manual) 1.0 % (0.0-7.3) 03/21/19 06:30 Eosinophils % (Manual) 8.0 % (0.0-4.3) H 03/21/19 06:30 Basophils % (Manual) 1.0 % (0.0-1.8) 03/21/19 06:30 Metamyelocytes % 1.0 % 03/21/19 06:30 Myelocytes % 0 % 03/21/19 06:30 Promyelocytes % 0 % 03/21/19 06:30 Blast Cells % 0 % 03/21/19 06:30 Nucleated RBC % Not Reportable 03/21/19 06:30 Seg Neutrophils # 7.8 K/mm3 (1.8-7.7) H 05/12/19 07:15 Seg Neutrophils # Man 6.7 K/mm3 (1.8-7.7) 03/21/19 06:30 Band Neutrophils # 0.0 K/mm3 03/21/19 06:30 Lymphocytes # (Manual) 0.7 K/mm3 (1.2-5.4) L 03/21/19 06:30 Abs React Lymphs (Man) 0.0 K/mm3 03/21/19 06:30 Monocytes # (Manual) 0.1 K/mm3 (0.0-0.8) 03/21/19 06:30 Eosinophils # (Manual) 0.7 K/mm3 (0.0-0.4) H 03/21/19 06:30 Basophils # (Manual) 0.1 K/mm3 (0.0-0.1) 03/21/19 06:30 Metamyelocytes # 0.1 K/mm3 03/21/19 06:30 Myelocytes # 0.0 K/mm3 03/21/19 06:30 Promyelocytes # 0.0 K/mm3 03/21/19 06:30 Blast Cells # 0.0 K/mm3 03/21/19 06:30 WBC Morphology Not Reportable 03/21/19 06:30 Hypersegmented Neuts Not Reportable 03/21/19 06:30 Hyposegmented Neuts Not Reportable 03/21/19 06:30 Hypogranular Neuts Not Reportable 03/21/19 06:30 Smudge Cells Not Reportable 03/21/19 06:30 Toxic Granulation Not Reportable 03/21/19 06:30 Toxic Vacuolation Not Reportable 03/21/19 06:30 Dohle Bodies Not Reportable 03/21/19 06:30 Pelger-Huet Anomaly Not Reportable 03/21/19 06:30 Tramaine Rods Not Reportable 03/21/19 06:30 Platelet Estimate Consistent w auto 03/21/19 06:30 Clumped Platelets Not Reportable 03/21/19 06:30 Plt Clumps, EDTA Not Reportable 03/21/19 06:30 Large Platelets Not Reportable 03/21/19 06:30 Giant Platelets Not Reportable 03/21/19 06:30 Platelet Satelliting Not Reportable 03/21/19 06:30 Plt Morphology Comment Not Reportable 03/21/19 06:30 RBC Morphology Not Reportable 03/21/19 06:30 Dimorphic RBCs Not Reportable 03/21/19 06:30 Polychromasia Not Reportable 03/21/19 06:30 Hypochromasia Few 03/21/19 06:30 Poikilocytosis Few 03/21/19 06:30 Anisocytosis Few 03/21/19 06:30 Microcytosis Not Reportable 03/21/19 06:30 Macrocytosis Not Reportable 03/21/19 06:30 Spherocytes Not Reportable 03/21/19 06:30 Pappenheimer Bodies Not Reportable 03/21/19 06:30 Sickle Cells Not Reportable 03/21/19 06:30 Target Cells 1+ 03/21/19 06:30 Tear Drop Cells Not Reportable 03/21/19 06:30 Ovalocytes Few 03/21/19 06:30 Helmet Cells Not Reportable 03/21/19 06:30 Zhou-[place] Bodies Not Reportable 03/21/19 06:30 N[place] Rings Not Reportable 03/21/19 06:30 Hebert Cells Not Reportable 03/21/19 06:30 Bite Cells Not Reportable 03/21/19 06:30 Crenated Cell Not Reportable 03/21/19 06:30 Elliptocytes Not Reportable 03/21/19 06:30 Acanthocytes (Spur) Not Reportable 03/21/19 06:30 Rouleaux Not Reportable 03/21/19 06:30 Hemoglobin C Crystals Not Reportable 03/21/19 06:30 Schistocytes Not Reportable 03/21/19 06:30 Malaria parasites Not Reportable 03/21/19 06:30 Jose Juan Bodies Not Reportable 03/21/19 06:30 Hem Pathologist Commnt No 03/21/19 06:30 PT 16.3 Sec. (12.2-14.9) H 03/01/19 09:39 INR 1.35 (0.87-1.13) H 03/01/19 09:39 APTT 33.7 Sec. (24.2-36.6) 02/21/19 18:30 D-Dimer 2987.82 ng/mlDDU (0-234) H 02/22/19 05:54 POC ABG pH 7.510 (7.35-7.45) H 03/18/19 06:38 ABG pH 7.424 pH Units (7.350-7.450) 03/19/19 04:23 POC ABG pCO2 38.9 (35-45) 03/18/19 06:38 ABG pCO2 48.0 mm Hg 03/19/19 04:23 POC ABG pO2 164 (80-105) H 03/18/19 06:38 ABG pO2 78.3 mm Hg (80.0-90.0) L 03/19/19 04:23 POC ABG HCO3 31.0 (22-26 mml/L) 03/18/19 06:38 ABG HCO3 30.7 mmol/L (20.0-26.0) H 03/19/19 04:23 POC ABG Total CO2 32 (23-27mmol/L) 03/18/19 06:38 POC ABG O2 Sat 100 03/18/19 06:38 ABG O2 Saturation 97.0 % (95.0-99.0) 03/19/19 04:23 ABG O2 Content 7.9 (0.0-44) 03/19/19 04:23 POC ABG Base Excess 8 ((-2) - (+3)mmol/L) 03/18/19 06:38 ABG Base Excess 5.8 mmol/L (-2.0-3.0) H 03/19/19 04:23 ABG Hemoglobin 5.8 gm/dl (14.0-18.0) L 03/19/19 04:23 ABG Carboxyhemoglobin 2.0 % (0.0-5.0) 03/19/19 04:23 ABG Methemoglobin 0.4 % (0.0-1.5) 03/19/19 04:23 Oxyhemoglobin 94.6 % (95.0-99.0) L 03/19/19 04:23 FiO2 35 % 03/19/19 04:23 Sodium 135 mmol/L (137-145) L 05/19/19 01:00 Potassium 3.9 mmol/L (3.6-5.0) 05/19/19 01:00 Chloride 93.6 mmol/L (98-107) L 05/19/19 01:00 Carbon Dioxide 29 mmol/L (22-30) 05/19/19 01:00 Anion Gap 16 mmol/L 05/19/19 01:00 BUN 64 mg/dL (9-20) H 05/19/19 01:00 Creatinine 2.8 mg/dL (0.8-1.5) H 05/19/19 01:00 Estimated GFR 28 ml/min 05/19/19 01:00 BUN/Creatinine Ratio 23 % 05/19/19 01:00 Glucose 194 mg/dL (75-100) H 05/19/19 01:00 POC Glucose 129 (70-105) H 05/26/19 11:39 Lactic Acid 1.00 mmol/L (0.7-2.0) 02/21/19 20:58 Calcium 9.5 mg/dL (8.4-10.2) 05/19/19 01:00 Phosphorus 4.30 mg/dL (2.5-4.5) D 03/31/19 10:26 Magnesium 2.70 mg/dL (1.7-2.3) H 03/30/19 10:13 Total Bilirubin 0.20 mg/dL (0.1-1.2) 03/30/19 10:13 AST 16 units/L (5-40) 03/30/19 10:13 ALT 11 units/L (7-56) 03/30/19 10:13 Alkaline Phosphatase 185 units/L (35-129) H 03/30/19 10:13 Ammonia 28.0 umol/L (25-60) 02/21/19 20:04 Total Creatine Kinase 64 units/L (55-170) 02/22/19 03:42 CK-MB (CK-2) 3.7 ng/mL (0.0-4.0) 02/22/19 03:42 CK-MB (CK-2) Rel Index 5.7 (0-4) H 02/22/19 03:42 Troponin T 0.193 ng/mL (0.00-0.029) H* 02/22/19 03:42 Total Protein 6.9 g/dL (6.3-8.2) 03/30/19 10:13 Albumin 2.6 g/dL (3.9-5) L 03/30/19 10:13 Albumin/Globulin Ratio 0.6 % 03/30/19 10:13 Triglycerides 51 mg/dL (2-149) 02/21/19 18:30 Cholesterol 82 mg/dL (50-199) 02/21/19 18:30 LDL Cholesterol Direct 36 mg/dL (50-130) L 02/21/19 18:30 HDL Cholesterol 40 mg/dL (40-59) 02/21/19 18:30 Cholesterol/HDL Ratio 2.05 % 02/21/19 18:30 TSH 2.760 mlU/mL (0.270-4.200) 02/21/19 20:04 PTH Intact 267.6 pg/mL (15-65) H 03/02/19 05:15 Salicylates < 0.3 mg/dL (2.8-20.0) L 02/21/19 20:04 Acetaminophen < 5.0 ug/mL (10.0-30.0) L 02/21/19 20:04 Hepatitis A IgM Ab Non-reactive (NonReactive) 04/30/19 14:11 Hep Bs Antigen Non-reactive (Negative) 04/30/19 14:11 Hep B Core IgM Ab Non-reactive (NonReactive) 04/30/19 14:11 Hepatitis C Antibody Non-reactive (NonReactive) 04/30/19 14:11 Blood Type O POSITIVE 05/04/19 12:55 Antibody Screen Negative 05/04/19 12:55 Crossmatch See Detail 05/04/19 12:55 Active Medications - Current Medications Current Medications: Generic Name Dose Route Start Last Admin Trade Name Freq PRN Reason Stop Dose Admin Acetaminophen 650 mg 05/18/19 23:33 05/25/19 07:07 Tylenol PO 650 mg Q6HR PRN Administration PAIN Albuterol/Ipratropium 1 ampul 02/24/19 20:00 05/26/19 14:06 Duoneb *Not For Prn Use* IH 1 ampul TIDRT SANCHEZ Administration Lipase/Protease/Amylase 1 each 04/10/19 15:16 Pancrejewel Barrientos 10,500 Unit FEEDTUBE PRN PRN For Clogged Feeding Tube Epoetin Solitario 20,000 unit 03/24/19 11:17 05/25/19 11:08 Procrit IV 20,000 unit UMA PRN Administration hemodialysis Famotidine 20 mg 02/23/19 10:00 05/26/19 09:51 Pepcid PO 20 mg DAILY SANCHEZ Administration Sodium Chloride 100 mls @ 999 mls/hr 05/13/19 12:45 Nacl 0.9% IV UMA PRN Hypotension Insulin Human Regular 0 units 02/26/19 12:00 05/26/19 11:43 Humulin R SUB-Q Not Given Q6HR SANCHEZ Protocol Metoprolol Tartrate 2.5 mg 02/28/19 12:06 03/15/19 05:15 Lopressor IV 2.5 mg Q4HR PRN Administration Tachycardia Risperidone 1 mg 02/25/19 13:00 05/26/19 09:51 Risperdal PO 1 mg DAILY SANCHEZ Administration Sertraline HCl 100 mg 02/25/19 13:00 05/26/19 09:51 Zoloft PO 100 mg DAILY SANCHEZ Administration Simple Syrup 15 ml 04/10/19 15:16 Simple Syrup FEEDTUBE PRN PRN Hypoglycemia Simple Syrup 30 ml 04/10/19 15:16 Simple Syrup FEEDTUBE PRN PRN Hypoglycemia Sodium Bicarbonate 325 mg 04/10/19 15:16 Sodium Bicarbonate FEEDTUBE PRN PRN For Clogged Feeding Tube Sodium Hypochlorite 1 applic 04/01/19 13:00 05/26/19 09:50 Dakin's Half Strength TP 1 applicatio BID SANCHEZ Administration Nutrition/Malnutrition Assess - Dietary Evaluation Nutrition/Malnutrition Findings: Nutrition Notes Start: 02/22/19 12:51 Freq: Status: Active Protocol: Document 05/21/19 12:03 DW (Rec: 05/21/19 12:13 DW [id number]) Co-Sign 05/21/19 12:03 KH Nutrition Notes Initial or Follow up Reassessment Current Diagnosis CKD (stage V CKD),Diabetes, Hypertension,Heart Failure Other Pertinent Diagnosis Sacral PU, ESRD on HD (T/Thurs /Sat), Schizophrenia,Blind in L eye,S/P trach Current Diet Nepro at 50 ml/hr w/Abhilash BID Labs/Tests POC Glu: 218 Pertinent Medications Reviewed Height 5 ft 10 in Weight 74.7 kg Anatone Body Weight (kg) 75.45 BMI 23.6 Weight change and time frame Wt loss noted. Likely d/t fluid change. Subjective/Other Information Upon arrival noted tube feed was running at goal. Per nurse pt is receiving Abhilash Percent of energy/protein needs met: 100%/100% Burn Absent Trauma Absent Minimum of two criteria No #2 Nutrition Diagnosis Increased nutrient needs ( specify in comment below) Diagnosis Progress(for reassessment Continues documentation) #1 Nutrition Diagnosis Inadequate oral intake Diagnosis Progress(for reassessment Continues documentation) Is patient on ventilator? No Is Patient Ambulatory and/or Out of Bed No REE-([place]-[facility]. Jeor-confined to bed) 1857.144 Kcal/Kg value to use for calculation 32 Approximate Energy Requirements Using 2390 kcal/Kg Calculation Used for Recommendations Kcal/kg Additional Notes PRO: 82-103g/day(1.2-1.5g/kg) Fluid: per MD Nutrition Intervention Change Diet Order: Continue TF Nutrition Support: Nepro with Carbsteady 1.8 at 50 ml/hr Flush 200 ml q4hr Kcal 2,160 Protein (gm) 97 Fluid (mL) 872 Add Supplement/Snack (indicate name/kcal Abhilash BID /protein ) Provides kCal: 190 Provides Protein (gm) 5 Goal #1 Continue to meet at least 75% of calorie and protein needs via TF Anticipated Discharge Needs: TF Follow-Up By: 05/28/19 Additional Comments F/U for TF tolereance and Abhilash
[2019-05-27] MEDS: INSULIN REGULAR, HUMAN 100 UNITS/1 ML SUB-Q SCH ×4 (00:05→17:41)
[2019-05-27] MEDS: IPRATROPIUM/ALBUTEROL SULFATE 3 ML AMPUL.NEB IH SCH ×3 (10:43→21:05)
[2019-05-27] MEDS: EPOETIN ALFA 20,000 UNIT/1 ML INJ IV PRN (12:19)
--- NOTE | 2019-05-27 12:19 | Progress Note ---
Subjective Principal diagnosis: Respiratory failure, acute on chronic systolic HF, ESRD Interval history: Patient was seen today for follow-up on multiple renal related issues on hemodialysis Saturday and Saturday Vitals intake output medications were reviewed Past medical history: Reviewed Family, social history: Reviewed Allergies: Reviewed Physical examination General: No acute distress Vitals: Reviewed HEENT: Oral mucosa moist no icterus Neck: Supple no thyromegaly nodular mass or JVD Chest: Clear to auscultation anteriorly Heart: Regular rate and rhythm S1-S2 heard no S3-S4 Abdomen: Soft nontender no suprapubic masses no organomegaly Extremity: Dry skin less than 1+ edema Psych: No evidence of any agitation and aggression noted Derm: No petechial rash Assessment and plan: ESRD continue with hemodialysis 3 times a week, as tolerated Ultrafiltration as tolerated Monitor dialysis related labs we'll order for labs tomorrow morning Prognosis poor/hospice appropriate/high mortality risk Hemodialysis only as tolerated. Discussed with dialysis crew We'll continue to follow and make recommendation from renal standpoint Objective - Vital Signs Vital signs: Vital Signs - 12hr 05/27/19 05/27/19 05/27/19 05:06 08:35 08:55 Temperature 98.3 F 98.3 F Pulse Rate 118 H 98 H 99 H Respiratory 20 20 Rate Blood Pressure 105/56 113/60 103/45 O2 Sat by Pulse 96 Oximetry 05/27/19 05/27/19 05/27/19 09:00 09:15 09:30 Temperature Pulse Rate 116 H 89 96 H Respiratory Rate Blood Pressure 111/59 127/48 109/57 O2 Sat by Pulse Oximetry 05/27/19 05/27/19 05/27/19 09:45 10:00 10:15 Temperature Pulse Rate 91 H 98 H 111 H Respiratory Rate Blood Pressure 104/38 104/53 105/53 O2 Sat by Pulse Oximetry 05/27/19 05/27/19 05/27/19 10:30 10:45 11:00 Temperature Pulse Rate 84 98 H 86 Respiratory Rate Blood Pressure 108/44 110/48 106/45 O2 Sat by Pulse Oximetry 05/27/19 05/27/19 11:15 11:30 Temperature Pulse Rate 90 92 H Respiratory Rate Blood Pressure 110/35 101/47 O2 Sat by Pulse Oximetry - Lab 05/19/19 01:00 05/19/19 01:00 Most recent lab results ABG pH 7.424 pH Units (7.350-7.450) 03/19/19 04:23 ABG pCO2 48.0 mm Hg 03/19/19 04:23 ABG pO2 78.3 mm Hg (80.0-90.0) L 03/19/19 04:23 ABG HCO3 30.7 mmol/L (20.0-26.0) H 03/19/19 04:23 ABG O2 Saturation 97.0 % (95.0-99.0) 03/19/19 04:23 Calcium 9.5 mg/dL (8.4-10.2) 05/19/19 01:00 Phosphorus 4.30 mg/dL (2.5-4.5) D 03/31/19 10:26 Magnesium 2.70 mg/dL (1.7-2.3) H 03/30/19 10:13 Medications & Allergies - Medications Allergies/Adverse Reactions: Allergies haloperidol [From Haldol] Adverse Reaction (Verified 03/13/18 12:10) Unknown haloperidol lactate [From Haldol] Adverse Reaction (Verified 03/13/18 12:10) Unknown Home Medications: Home Medications Medication Instructions Recorded Confirmed Last Taken Type risperiDONE [RisperDAL] 1 mg PO QAM 03/13/18 02/21/19 Unknown History Sertraline [Zoloft] 100 mg PO QDAY 08/26/18 02/21/19 Unknown History Polyethylene Glycol 3350 [Miralax 17 gm PO QDAY #30 packet 11/05/18 02/21/19 Unknown Rx 3350] Aspirin EC [Halfprin EC] 81 mg PO DAILY #30 11/19/18 02/21/19 Unknown Rx Docusate Sodium [Colace CAP] 100 mg PO BID #60 11/19/18 02/21/19 Unknown Rx Folic Acid [Folvite] 1 mg PO DAILY #30 tab 11/19/18 02/21/19 Unknown Rx Famotidine [Pepcid] 20 mg PO DAILY tablet 12/08/18 02/21/19 Unknown Rx Gabapentin 100 mg PO QHS capsule 12/08/18 02/21/19 Unknown Rx Metoprolol [Lopressor TAB] 50 mg PO BID 30 Days tablet 12/08/18 02/21/19 Unknown Rx Sevelamer Carbonate [Renvela] 800 mg PO TIDWM tablet 12/08/18 02/21/19 Unknown Rx hydrALAZINE [Apresoline TAB] 100 mg PO Q8HR #120 tablet 12/08/18 02/21/19 Unknown Rx Acetaminophen [Acetaminophen TAB] 650 mg PO Q12H PRN 12/15/18 02/21/19 Unknown History Glucagon,Human Recombinant 1 mg IJ Q15MIN PRN 12/15/18 02/21/19 Unknown History [Glucagon Emergency Kit] Insulin Aspart [NovoLOG 100 See Protocol SQ QWEEK 12/15/18 02/21/19 Unknown History UNITS/ML VIAL] Active Medications: Generic Name Dose Route Start Last Admin Trade Name Freq PRN Reason Stop Dose Admin Acetaminophen 650 mg 05/18/19 23:33 05/25/19 07:07 Tylenol PO 650 mg Q6HR PRN Administration PAIN Albuterol/Ipratropium 1 ampul 02/24/19 20:00 05/27/19 10:43 Duoneb *Not For Prn Use* IH Not Given TIDRT SANCHEZ Lipase/Protease/Amylase 1 each 04/10/19 15:16 Pancreaze 10,500 Unit FEEDTUBE PRN PRN For Clogged Feeding Tube Epoetin Solitario 20,000 unit 03/24/19 11:17 05/25/19 11:08 Procrit IV 20,000 unit UMA PRN Administration hemodialysis Famotidine 20 mg 02/23/19 10:00 05/26/19 09:51 Pepcid PO 20 mg DAILY SANCHEZ Administration Sodium Chloride 100 mls @ 999 mls/hr 05/13/19 12:45 Nacl 0.9% IV UMA PRN Hypotension Insulin Human Regular 0 units 02/26/19 12:00 05/27/19 06:39 Humulin R SUB-Q 1 units Q6HR SANCHEZ Administration Protocol Metoprolol Tartrate 2.5 mg 02/28/19 12:06 03/15/19 05:15 Lopressor IV 2.5 mg Q4HR PRN Administration Tachycardia Risperidone 1 mg 02/25/19 13:00 05/26/19 09:51 Risperdal PO 1 mg DAILY SANCHEZ Administration Sertraline HCl 100 mg 02/25/19 13:00 05/26/19 09:51 Zoloft PO 100 mg DAILY SANCHEZ Administration Simple Syrup 15 ml 04/10/19 15:16 Simple Syrup FEEDTUBE PRN PRN Hypoglycemia Simple Syrup 30 ml 04/10/19 15:16 Simple Syrup FEEDTUBE PRN PRN Hypoglycemia Sodium Bicarbonate 325 mg 04/10/19 15:16 Sodium Bicarbonate FEEDTUBE PRN PRN For Clogged Feeding Tube Sodium Hypochlorite 1 applic 04/01/19 13:00 05/26/19 22:55 Dakin's Half Strength TP 1 applicatio BID SANCHEZ Administration
[2019-05-27] MEDS: risperiDONE 1 MG TAB PO SCH (13:27)
[2019-05-27] MEDS: FAMOTIDINE 20 MG TAB PO SCH (13:27)
[2019-05-27] MEDS: SERTRALINE 100 MG TAB PO SCH (13:28)
--- NOTE | 2019-05-27 13:52 | Progress Note ---
Assessment and Plan 63 y/o male with multiple medical issues admitted with altered mental status, acute respiratory failure requiring mechanical ventilation, now trached, on HD unable to find placement given this combination, now with recurrent fevers. No new recommendations for today. Please see below 1. Continue capping trials. Nasal cannula therapy. 2. HD per renal 3. PT/OT if possible 4. CM working on placement 5. No objection to discharge once placement is found Agree with ID note. Patient is a DNR. He is not to be placed back on the ventilator. Acetinetobacter was seen in lungs last time, most likely could resurface their again. Remainder for those who are not as familiar with this case. Patient has been in the hospital on this particular stay over 3 months. Subjective Date of service: 05/27/19 Principal diagnosis: Respiratory failure, acute on chronic systolic HF, ESRD Interval history: No acute events. Denied yet again by another facility. Objective Vital Signs - 12hr 05/27/19 05/27/19 05/27/19 05:06 08:35 08:55 Temperature 98.3 F 98.3 F Pulse Rate 118 H 98 H 99 H Respiratory 20 20 Rate Blood Pressure 105/56 113/60 103/45 O2 Sat by Pulse 96 Oximetry 05/27/19 05/27/19 05/27/19 09:00 09:15 09:30 Temperature Pulse Rate 116 H 89 96 H Respiratory Rate Blood Pressure 111/59 127/48 109/57 O2 Sat by Pulse Oximetry 05/27/19 05/27/19 05/27/19 09:45 10:00 10:15 Temperature Pulse Rate 91 H 98 H 111 H Respiratory Rate Blood Pressure 104/38 104/53 105/53 O2 Sat by Pulse Oximetry 05/27/19 05/27/19 05/27/19 10:30 10:45 11:00 Temperature Pulse Rate 84 98 H 86 Respiratory Rate Blood Pressure 108/44 110/48 106/45 O2 Sat by Pulse Oximetry 05/27/19 05/27/19 05/27/19 11:15 11:30 11:45 Temperature Pulse Rate 90 92 H 98 H Respiratory Rate Blood Pressure 110/35 101/47 105/41 O2 Sat by Pulse Oximetry 05/27/19 05/27/19 05/27/19 12:00 12:15 12:30 Temperature 98.3 F Pulse Rate 98 H 87 92 H Respiratory 20 Rate Blood Pressure 101/54 125/36 104/60 O2 Sat by Pulse Oximetry Constitutional: no acute distress, other (agitated) Eyes: non-icteric ENT: oropharynx moist Neck: supple, other (tracheostomy tube noted) Effort: normal Ascultation: Bilateral: diminished breath sounds, other (coarse BS bilaterally) Percussion: Bilateral: not dull Cardiovascular: regular rate and rhythm (no mrg) Gastrointestinal: normoactive bowel sounds, soft, non-tender, non-distended, other (ostomy in place, brown stool) Extremities: no cyanosis, no edema, pink and warm Neurologic: other (mild weakness LUE, o/w nonfocal) Psychiatric: other (unable to assess) CBC and BMP: 05/19/19 01:00 05/19/19 01:00 ABG, PT/INR, D-dimer: ABG POC ABG pH 7.510 (7.35-7.45) H 03/18/19 06:38 ABG pH 7.424 pH Units (7.350-7.450) 03/19/19 04:23 POC ABG pCO2 38.9 (35-45) 03/18/19 06:38 ABG pCO2 48.0 mm Hg 03/19/19 04:23 POC ABG pO2 164 (80-105) H 03/18/19 06:38 ABG pO2 78.3 mm Hg (80.0-90.0) L 03/19/19 04:23 POC ABG HCO3 31.0 (22-26 mml/L) 03/18/19 06:38 POC ABG Total CO2 32 (23-27mmol/L) 03/18/19 06:38 POC ABG O2 Sat 100 03/18/19 06:38 ABG O2 Saturation 97.0 % (95.0-99.0) 03/19/19 04:23 PT/INR, D-dimer PT 16.3 Sec. (12.2-14.9) H 03/01/19 09:39 INR 1.35 (0.87-1.13) H 03/01/19 09:39 D-Dimer 2987.82 ng/mlDDU (0-234) H 02/22/19 05:54 Abnormal lab findings: Abnormal Labs 02/21/19 02/21/19 02/21/19 18:30 18:30 18:30 WBC RBC 3.26 L Hgb 8.8 L Hct 29.0 L MCV MCH 27 L MCHC 30 L RDW 19.1 H Plt Count Lymph % (Auto) 6.1 L [place] % (Auto) Eos % (Auto) Baso % (Auto) Lymph # 0.4 L [place] # Eos # Baso # Seg Neutrophils % 86.2 H Seg Neuts % (Manual) Lymphocytes % (Manual) Eosinophils % (Manual) Seg Neutrophils # Lymphocytes # (Manual) Eosinophils # (Manual) PT INR D-Dimer POC ABG pH POC ABG pCO2 POC ABG pO2 ABG pO2 ABG HCO3 ABG Base Excess ABG Hemoglobin Oxyhemoglobin Sodium 133 L Potassium 3.3 L Chloride 93.1 L Carbon Dioxide 33 H BUN Creatinine Glucose 161 H POC Glucose Calcium Phosphorus Magnesium ALT Alkaline Phosphatase 136 H Total Creatine Kinase 37 L CK-MB (CK-2) Rel Index Troponin T 0.192 H* Albumin 2.4 L LDL Cholesterol Direct 36 L PTH Intact Salicylates Acetaminophen Crossmatch 02/21/19 02/21/19 02/21/19 18:42 20:04 20:04 WBC RBC Hgb Hct MCV MCH MCHC RDW Plt Count Lymph % (Auto) [place] % (Auto) Eos % (Auto) Baso % (Auto) Lymph # R[place] # Eos # Baso # Seg Neutrophils % Seg Neuts % (Manual) Lymphocytes % (Manual) Eosinophils % (Manual) Seg Neutrophils # Lymphocytes # (Manual) Eosinophils # (Manual) PT INR D-Dimer POC ABG pH POC ABG pCO2 56.7 H POC ABG pO2 291 H ABG pO2 ABG HCO3 ABG Base Excess ABG Hemoglobin Oxyhemoglobin Sodium Potassium Chloride Carbon Dioxide BUN Creatinine Glucose POC Glucose Calcium Phosphorus Magnesium ALT Alkaline Phosphatase Total Creatine Kinase CK-MB (CK-2) Rel Index Troponin T Albumin LDL Cholesterol Direct PTH Intact Salicylates < 0.3 L Acetaminophen < 5.0 L Crossmatch 02/21/19 02/22/19 02/22/19 22:35 03:42 03:42 WBC RBC 3.20 L Hgb 8.8 L Hct 27.6 L MCV MCH MCHC RDW 18.9 H Plt Count Lymph % (Auto) 7.4 L [place] % (Auto) Eos % (Auto) Baso % (Auto) Lymph # 0.7 L [place] # Eos # Baso # Seg Neutrophils % 84.7 H Seg Neuts % (Manual) Lymphocytes % (Manual) Eosinophils % (Manual) Seg Neutrophils # Lymphocytes # (Manual) Eosinophils # (Manual) PT INR D-Dimer POC ABG pH POC ABG pCO2 POC ABG pO2 ABG pO2 ABG HCO3 ABG Base Excess ABG Hemoglobin Oxyhemoglobin Sodium 134 L Potassium 2.6 L* D Chloride Carbon Dioxide BUN Creatinine Glucose POC Glucose Calcium Phosphorus Magnesium ALT Alkaline Phosphatase Total Creatine Kinase CK-MB (CK-2) Rel Index 5.2 H Troponin T 0.202 H* Albumin LDL Cholesterol Direct PTH Intact Salicylates Acetaminophen Crossmatch 02/22/19 02/22/19 02/22/19 03:42 05:54 09:04 WBC RBC Hgb Hct MCV MCH MCHC RDW Plt Count Lymph % (Auto) [place] % (Auto) Eos % (Auto) Baso % (Auto) Lymph # R[place] # Eos # Baso # Seg Neutrophils % Seg Neuts % (Manual) Lymphocytes % (Manual) Eosinophils % (Manual) Seg Neutrophils # Lymphocytes # (Manual) Eosinophils # (Manual) PT INR D-Dimer 2987.82 H POC ABG pH 7.451 H POC ABG pCO2 POC ABG pO2 ABG pO2 ABG HCO3 ABG Base Excess ABG Hemoglobin Oxyhemoglobin Sodium Potassium Chloride Carbon Dioxide BUN Creatinine Glucose POC Glucose Calcium Phosphorus Magnesium ALT Alkaline Phosphatase Total Creatine Kinase CK-MB (CK-2) Rel Index 5.7 H Troponin T 0.193 H* Albumin LDL Cholesterol Direct PTH Intact Salicylates Acetaminophen Crossmatch 02/22/19 02/22/19 02/23/19 10:36 23:56 00:52 WBC RBC Hgb Hct MCV MCH MCHC RDW Plt Count Lymph % (Auto) [place] % (Auto) Eos % (Auto) Baso % (Auto) Lymph # R[place] # Eos # Baso # Seg Neutrophils % Seg Neuts % (Manual) Lymphocytes % (Manual) Eosinophils % (Manual) Seg Neutrophils # Lymphocytes # (Manual) Eosinophils # (Manual) PT INR D-Dimer POC ABG pH POC ABG pCO2 POC ABG pO2 ABG pO2 ABG HCO3 ABG Base Excess ABG Hemoglobin Oxyhemoglobin Sodium Potassium 3.1 L Chloride Carbon Dioxide BUN Creatinine Glucose POC Glucose 58 L 111 H Calcium Phosphorus Magnesium ALT Alkaline Phosphatase Total Creatine Kinase CK-MB (CK-2) Rel Index Troponin T Albumin LDL Cholesterol Direct PTH Intact Salicylates Acetaminophen Crossmatch 02/23/19 02/23/19 02/23/19 05:00 06:35 14:26 WBC RBC Hgb Hct MCV MCH MCHC RDW Plt Count Lymph % (Auto) [place] % (Auto) Eos % (Auto) Baso % (Auto) Lymph # R[place] # Eos # Baso # Seg Neutrophils % Seg Neuts % (Manual) Lymphocytes % (Manual) Eosinophils % (Manual) Seg Neutrophils # Lymphocytes # (Manual) Eosinophils # (Manual) PT INR D-Dimer POC ABG pH POC ABG pCO2 POC ABG pO2 ABG pO2 ABG HCO3 ABG Base Excess ABG Hemoglobin Oxyhemoglobin Sodium 135 L Potassium 3.1 L Chloride Carbon Dioxide BUN 21 H Creatinine 2.0 H Glucose 57 L POC Glucose 64 L 62 L Calcium Phosphorus Magnesium ALT Alkaline Phosphatase Total Creatine Kinase CK-MB (CK-2) Rel Index Troponin T Albumin LDL Cholesterol Direct PTH Intact Salicylates Acetaminophen Crossmatch 02/24/19 02/24/19 02/24/19 02:11 04:12 04:55 WBC RBC 2.84 L Hgb 7.8 L Hct 24.5 L MCV MCH MCHC RDW 19.5 H Plt Count Lymph % (Auto) [place] % (Auto) Eos % (Auto) Baso % (Auto) Lymph # Runn[place] # Eos # Baso # Seg Neutrophils % Seg Neuts % (Manual) Lymphocytes % (Manual) Eosinophils % (Manual) Seg Neutrophils # Lymphocytes # (Manual) Eosinophils # (Manual) PT INR D-Dimer POC ABG pH 7.511 H POC ABG pCO2 33.9 L POC ABG pO2 62 L ABG pO2 ABG HCO3 ABG Base Excess ABG Hemoglobin Oxyhemoglobin Sodium Potassium Chloride Carbon Dioxide BUN Creatinine Glucose POC Glucose 69 L Calcium Phosphorus Magnesium ALT Alkaline Phosphatase Total Creatine Kinase CK-MB (CK-2) Rel Index Troponin T Albumin LDL Cholesterol Direct PTH Intact Salicylates Acetaminophen Crossmatch 02/24/19 02/24/19 02/25/19 04:55 05:41 04:45 WBC RBC Hgb Hct MCV MCH MCHC RDW Plt Count Lymph % (Auto) [place] % (Auto) Eos % (Auto) Baso % (Auto) Lymph # R[place] # Eos # Baso # Seg Neutrophils % Seg Neuts % (Manual) Lymphocytes % (Manual) Eosinophils % (Manual) Seg Neutrophils # Lymphocytes # (Manual) Eosinophils # (Manual) PT INR D-Dimer POC ABG pH 7.466 H POC ABG pCO2 POC ABG pO2 75 L ABG pO2 ABG HCO3 ABG Base Excess ABG Hemoglobin Oxyhemoglobin Sodium Potassium Chloride Carbon Dioxide BUN Creatinine 1.8 H Glucose 73 L POC Glucose 127 H Calcium Phosphorus Magnesium ALT Alkaline Phosphatase Total Creatine Kinase CK-MB (CK-2) Rel Index Troponin T Albumin LDL Cholesterol Direct PTH Intact Salicylates Acetaminophen Crossmatch 02/25/19 02/25/19 02/26/19 16:34 21:33 03:45 WBC RBC 2.96 L Hgb 8.0 L Hct 25.8 L MCV MCH 27 L MCHC 31 L RDW 20.0 H Plt Count Lymph % (Auto) [place] % (Auto) Eos % (Auto) Baso % (Auto) Lymph # R[place] # Eos # Baso # Seg Neutrophils % Seg Neuts % (Manual) Lymphocytes % (Manual) Eosinophils % (Manual) Seg Neutrophils # Lymphocytes # (Manual) Eosinophils # (Manual) PT INR D-Dimer POC ABG pH POC ABG pCO2 POC ABG pO2 ABG pO2 ABG HCO3 ABG Base Excess ABG Hemoglobin Oxyhemoglobin Sodium Potassium Chloride Carbon Dioxide BUN Creatinine Glucose POC Glucose 141 H 106 H Calcium Phosphorus Magnesium ALT Alkaline Phosphatase Total Creatine Kinase CK-MB (CK-2) Rel Index Troponin T Albumin LDL Cholesterol Direct PTH Intact Salicylates Acetaminophen Crossmatch 02/26/19 02/26/19 02/26/19 03:45 04:13 07:53 WBC RBC Hgb Hct MCV MCH MCHC RDW Plt Count Lymph % (Auto) [place] % (Auto) Eos % (Auto) Baso % (Auto) Lymph # R[place] # Eos # Baso # Seg Neutrophils % Seg Neuts % (Manual) Lymphocytes % (Manual) Eosinophils % (Manual) Seg Neutrophils # Lymphocytes # (Manual) Eosinophils # (Manual) PT INR D-Dimer POC ABG pH 7.470 H POC ABG pCO2 POC ABG pO2 ABG pO2 ABG HCO3 ABG Base Excess ABG Hemoglobin Oxyhemoglobin Sodium Potassium Chloride Carbon Dioxide BUN Creatinine 1.8 H Glucose POC Glucose 110 H Calcium Phosphorus Magnesium ALT Alkaline Phosphatase Total Creatine Kinase CK-MB (CK-2) Rel Index Troponin T Albumin LDL Cholesterol Direct PTH Intact Salicylates Acetaminophen Crossmatch 02/26/19 02/26/19 02/27/19 11:56 17:43 00:12 WBC RBC Hgb Hct MCV MCH MCHC RDW Plt Count Lymph % (Auto) [place] % (Auto) Eos % (Auto) Baso % (Auto) Lymph # R[place] # Eos # Baso # Seg Neutrophils % Seg Neuts % (Manual) Lymphocytes % (Manual) Eosinophils % (Manual) Seg Neutrophils # Lymphocytes # (Manual) Eosinophils # (Manual) PT INR D-Dimer POC ABG pH POC ABG pCO2 POC ABG pO2 ABG pO2 ABG HCO3 ABG Base Excess ABG Hemoglobin Oxyhemoglobin Sodium Potassium Chloride Carbon Dioxide BUN Creatinine Glucose POC Glucose 112 H 127 H 127 H Calcium Phosphorus Magnesium ALT Alkaline Phosphatase Total Creatine Kinase CK-MB (CK-2) Rel Index Troponin T Albumin LDL Cholesterol Direct PTH Intact Salicylates Acetaminophen Crossmatch 02/27/19 02/27/19 02/27/19 04:35 13:15 18:02 WBC RBC Hgb Hct MCV MCH MCHC RDW Plt Count Lymph % (Auto) [place] % (Auto) Eos % (Auto) Baso % (Auto) Lymph # R[place] # Eos # Baso # Seg Neutrophils % Seg Neuts % (Manual) Lymphocytes % (Manual) Eosinophils % (Manual) Seg Neutrophils # Lymphocytes # (Manual) Eosinophils # (Manual) PT INR D-Dimer POC ABG pH 7.483 H POC ABG pCO2 POC ABG pO2 61 L ABG pO2 ABG HCO3 ABG Base Excess ABG Hemoglobin Oxyhemoglobin Sodium Potassium Chloride Carbon Dioxide BUN Creatinine Glucose POC Glucose 143 H 106 H Calcium Phosphorus Magnesium ALT Alkaline Phosphatase Total Creatine Kinase CK-MB (CK-2) Rel Index Troponin T Albumin LDL Cholesterol Direct PTH Intact Salicylates Acetaminophen Crossmatch 02/28/19 02/28/19 02/28/19 05:50 11:59 17:52 WBC RBC Hgb Hct MCV MCH MCHC RDW Plt Count Lymph % (Auto) [place] % (Auto) Eos % (Auto) Baso % (Auto) Lymph # R[place] # Eos # Baso # Seg Neutrophils % Seg Neuts % (Manual) Lymphocytes % (Manual) Eosinophils % (Manual) Seg Neutrophils # Lymphocytes # (Manual) Eosinophils # (Manual) PT INR D-Dimer POC ABG pH POC ABG pCO2 POC ABG pO2 ABG pO2 ABG HCO3 ABG Base Excess ABG Hemoglobin Oxyhemoglobin Sodium Potassium Chloride Carbon Dioxide BUN Creatinine Glucose POC Glucose 134 H 128 H 142 H Calcium Phosphorus Magnesium ALT Alkaline Phosphatase Total Creatine Kinase CK-MB (CK-2) Rel Index Troponin T Albumin LDL Cholesterol Direct PTH Intact Salicylates Acetaminophen Crossmatch 02/28/19 03/01/19 03/01/19 23:13 05:40 09:39 WBC RBC Hgb Hct MCV MCH MCHC RDW Plt Count Lymph % (Auto) [place] % (Auto) Eos % (Auto) Baso % (Auto) Lymph # R[place] # Eos # Baso # Seg Neutrophils % Seg Neuts % (Manual) Lymphocytes % (Manual) Eosinophils % (Manual) Seg Neutrophils # Lymphocytes # (Manual) Eosinophils # (Manual) PT 16.3 H INR 1.35 H D-Dimer POC ABG pH POC ABG pCO2 POC ABG pO2 ABG pO2 ABG HCO3 ABG Base Excess ABG Hemoglobin Oxyhemoglobin Sodium Potassium Chloride Carbon Dioxide BUN Creatinine Glucose POC Glucose 112 H 111 H Calcium Phosphorus Magnesium ALT Alkaline Phosphatase Total Creatine Kinase CK-MB (CK-2) Rel Index Troponin T Albumin LDL Cholesterol Direct PTH Intact Salicylates Acetaminophen Crossmatch 03/01/19 03/01/19 03/01/19 11:56 13:54 17:59 WBC RBC Hgb Hct MCV MCH MCHC RDW Plt Count Lymph % (Auto) [place] % (Auto) Eos % (Auto) Baso % (Auto) Lymph # R[place] # Eos # Baso # Seg Neutrophils % Seg Neuts % (Manual) Lymphocytes % (Manual) Eosinophils % (Manual) Seg Neutrophils # Lymphocytes # (Manual) Eosinophils # (Manual) PT INR D-Dimer POC ABG pH POC ABG pCO2 POC ABG pO2 ABG pO2 ABG HCO3 ABG Base Excess ABG Hemoglobin Oxyhemoglobin Sodium Potassium Chloride Carbon Dioxide BUN 33 H Creatinine 2.8 H D Glucose 176 H POC Glucose 199 H 147 H Calcium Phosphorus Magnesium ALT Alkaline Phosphatase Total Creatine Kinase CK-MB (CK-2) Rel Index Troponin T Albumin LDL Cholesterol Direct PTH Intact Salicylates Acetaminophen Crossmatch 03/02/19 03/02/19 03/02/19 05:15 05:15 05:15 WBC RBC 2.73 L Hgb 7.4 L Hct 23.0 L MCV MCH 27 L MCHC RDW 19.9 H Plt Count Lymph % (Auto) [place] % (Auto) 7.9 H Eos % (Auto) 7.6 H Baso % (Auto) Lymph # 1.0 L [place] # Eos # 0.5 H Baso # Seg Neutrophils % Seg Neuts % (Manual) Lymphocytes % (Manual) Eosinophils % (Manual) Seg Neutrophils # Lymphocytes # (Manual) Eosinophils # (Manual) PT INR D-Dimer POC ABG pH POC ABG pCO2 POC ABG pO2 ABG pO2 ABG HCO3 ABG Base Excess ABG Hemoglobin Oxyhemoglobin Sodium Potassium Chloride Carbon Dioxide BUN 43 H Creatinine 3.2 H Glucose POC Glucose Calcium Phosphorus 2.30 L Magnesium ALT Alkaline Phosphatase Total Creatine Kinase CK-MB (CK-2) Rel Index Troponin T Albumin LDL Cholesterol Direct PTH Intact 267.6 H Salicylates Acetaminophen Crossmatch 03/02/19 03/02/19 03/03/19 12:32 18:20 13:30 WBC RBC Hgb Hct MCV MCH MCHC RDW Plt Count Lymph % (Auto) [place] % (Auto) Eos % (Auto) Baso % (Auto) Lymph # R[place] # Eos # Baso # Seg Neutrophils % Seg Neuts % (Manual) Lymphocytes % (Manual) Eosinophils % (Manual) Seg Neutrophils # Lymphocytes # (Manual) Eosinophils # (Manual) PT INR D-Dimer POC ABG pH POC ABG pCO2 POC ABG pO2 ABG pO2 ABG HCO3 ABG Base Excess ABG Hemoglobin Oxyhemoglobin Sodium Potassium Chloride 97.3 L Carbon Dioxide BUN 26 H Creatinine 2.2 H Glucose 73 L POC Glucose 111 H 156 H Calcium Phosphorus Magnesium ALT Alkaline Phosphatase Total Creatine Kinase CK-MB (CK-2) Rel Index Troponin T Albumin LDL Cholesterol Direct PTH Intact Salicylates Acetaminophen Crossmatch 03/04/19 03/04/19 03/04/19 00:02 05:37 05:40 WBC RBC 2.63 L Hgb 7.2 L Hct 22.2 L MCV MCH MCHC RDW 20.2 H Plt Count Lymph % (Auto) 10.5 L [place] % (Auto) Eos % (Auto) 4.6 H Baso % (Auto) Lymph # 0.7 L [place] # Eos # Baso # Seg Neutrophils % 76.9 H Seg Neuts % (Manual) Lymphocytes % (Manual) Eosinophils % (Manual) Seg Neutrophils # Lymphocytes # (Manual) Eosinophils # (Manual) PT INR D-Dimer POC ABG pH POC ABG pCO2 POC ABG pO2 ABG pO2 ABG HCO3 ABG Base Excess ABG Hemoglobin Oxyhemoglobin Sodium Potassium Chloride Carbon Dioxide BUN Creatinine Glucose POC Glucose 136 H 123 H Calcium Phosphorus Magnesium ALT Alkaline Phosphatase Total Creatine Kinase CK-MB (CK-2) Rel Index Troponin T Albumin LDL Cholesterol Direct PTH Intact Salicylates Acetaminophen Crossmatch 03/04/19 03/04/19 03/04/19 05:40 11:39 23:20 WBC RBC Hgb Hct MCV MCH MCHC RDW Plt Count Lymph % (Auto) [place] % (Auto) Eos % (Auto) Baso % (Auto) Lymph # R[place]els # Eos # Baso # Seg Neutrophils % Seg Neuts % (Manual) Lymphocytes % (Manual) Eosinophils % (Manual) Seg Neutrophils # Lymphocytes # (Manual) Eosinophils # (Manual) PT INR D-Dimer POC ABG pH POC ABG pCO2 POC ABG pO2 ABG pO2 ABG HCO3 ABG Base Excess ABG Hemoglobin Oxyhemoglobin Sodium Potassium Chloride Carbon Dioxide BUN 34 H Creatinine 2.7 H Glucose 114 H POC Glucose 175 H 151 H Calcium Phosphorus Magnesium ALT Alkaline Phosphatase Total Creatine Kinase CK-MB (CK-2) Rel Index Troponin T Albumin LDL Cholesterol Direct PTH Intact Salicylates Acetaminophen Crossmatch 03/05/19 03/05/19 03/05/19 05:37 12:08 17:11 WBC RBC Hgb Hct MCV MCH MCHC RDW Plt Count Lymph % (Auto) [place] % (Auto) Eos % (Auto) Baso % (Auto) Lymph # R[place]els # Eos # Baso # Seg Neutrophils % Seg Neuts % (Manual) Lymphocytes % (Manual) Eosinophils % (Manual) Seg Neutrophils # Lymphocytes # (Manual) Eosinophils # (Manual) PT INR D-Dimer POC ABG pH POC ABG pCO2 POC ABG pO2 ABG pO2 ABG HCO3 ABG Base Excess ABG Hemoglobin Oxyhemoglobin Sodium Potassium Chloride Carbon Dioxide BUN Creatinine Glucose POC Glucose 134 H 135 H 135 H Calcium Phosphorus Magnesium ALT Alkaline Phosphatase Total Creatine Kinase CK-MB (CK-2) Rel Index Troponin T Albumin LDL Cholesterol Direct PTH Intact Salicylates Acetaminophen Crossmatch 03/06/19 03/06/19 03/06/19 00:16 13:05 18:09 WBC RBC Hgb Hct MCV MCH MCHC RDW Plt Count Lymph % (Auto) [place] % (Auto) Eos % (Auto) Baso % (Auto) Lymph # R[place]els # Eos # Baso # Seg Neutrophils % Seg Neuts % (Manual) Lymphocytes % (Manual) Eosinophils % (Manual) Seg Neutrophils # Lymphocytes # (Manual) Eosinophils # (Manual) PT INR D-Dimer POC ABG pH POC ABG pCO2 POC ABG pO2 ABG pO2 ABG HCO3 ABG Base Excess ABG Hemoglobin Oxyhemoglobin Sodium Potassium Chloride Carbon Dioxide BUN Creatinine Glucose POC Glucose 117 H 113 H 131 H Calcium Phosphorus Magnesium ALT Alkaline Phosphatase Total Creatine Kinase CK-MB (CK-2) Rel Index Troponin T Albumin LDL Cholesterol Direct PTH Intact Salicylates Acetaminophen Crossmatch 03/07/19 03/08/19 03/08/19 05:25 05:33 16:00 WBC RBC 2.44 L Hgb 6.6 L Hct 20.8 L MCV MCH 27 L MCHC RDW 19.2 H Plt Count Lymph % (Auto) [place] % (Auto) Eos % (Auto) 8.6 H Baso % (Auto) Lymph # 0.8 L R[place] # Eos # 0.5 H Baso # Seg Neutrophils % 70.7 H Seg Neuts % (Manual) Lymphocytes % (Manual) Eosinophils % (Manual) Seg Neutrophils # Lymphocytes # (Manual) Eosinophils # (Manual) PT INR D-Dimer POC ABG pH POC ABG pCO2 POC ABG pO2 ABG pO2 ABG HCO3 ABG Base Excess ABG Hemoglobin Oxyhemoglobin Sodium Potassium Chloride Carbon Dioxide BUN Creatinine Glucose POC Glucose 106 H 108 H Calcium Phosphorus Magnesium ALT Alkaline Phosphatase Total Creatine Kinase CK-MB (CK-2) Rel Index Troponin T Albumin LDL Cholesterol Direct PTH Intact Salicylates Acetaminophen Crossmatch 03/08/19 03/08/19 03/08/19 16:00 18:38 Unknown WBC RBC Hgb Hct MCV MCH MCHC RDW Plt Count Lymph % (Auto) [place] % (Auto) Eos % (Auto) Baso % (Auto) Lymph # Runnels # Eos # Baso # Seg Neutrophils % Seg Neuts % (Manual) Lymphocytes % (Manual) Eosinophils % (Manual) Seg Neutrophils # Lymphocytes # (Manual) Eosinophils # (Manual) PT INR D-Dimer POC ABG pH POC ABG pCO2 POC ABG pO2 ABG pO2 ABG HCO3 ABG Base Excess ABG Hemoglobin Oxyhemoglobin Sodium Potassium 5.4 H D Chloride Carbon Dioxide BUN 47 H Creatinine 2.6 H Glucose POC Glucose 123 H Calcium Phosphorus Magnesium ALT < 5 L Alkaline Phosphatase Total Creatine Kinase CK-MB (CK-2) Rel Index Troponin T Albumin 2.2 L LDL Cholesterol Direct PTH Intact Salicylates Acetaminophen Crossmatch See Detail 03/09/19 03/09/19 03/09/19 10:48 12:28 13:53 WBC RBC 2.85 L Hgb 7.7 L Hct 24.2 L MCV MCH 27 L MCHC RDW 18.7 H Plt Count Lymph % (Auto) [place] % (Auto) Eos % (Auto) Baso % (Auto) Lymph # Runnels # Eos # Baso # Seg Neutrophils % Seg Neuts % (Manual) Lymphocytes % (Manual) Eosinophils % (Manual) Seg Neutrophils # Lymphocytes # (Manual) Eosinophils # (Manual) PT INR D-Dimer POC ABG pH POC ABG pCO2 POC ABG pO2 ABG pO2 ABG HCO3 30.5 H ABG Base Excess 5.6 H ABG Hemoglobin 8.1 L Oxyhemoglobin 93.8 L Sodium Potassium Chloride Carbon Dioxide BUN Creatinine Glucose POC Glucose 114 H Calcium Phosphorus Magnesium ALT Alkaline Phosphatase Total Creatine Kinase CK-MB (CK-2) Rel Index Troponin T Albumin LDL Cholesterol Direct PTH Intact Salicylates Acetaminophen Crossmatch 03/09/19 03/09/19 03/10/19 17:58 23:53 12:01 WBC RBC Hgb Hct MCV MCH MCHC RDW Plt Count Lymph % (Auto) [place] % (Auto) Eos % (Auto) Baso % (Auto) Lymph # Runnels # Eos # Baso # Seg Neutrophils % Seg Neuts % (Manual) Lymphocytes % (Manual) Eosinophils % (Manual) Seg Neutrophils # Lymphocytes # (Manual) Eosinophils # (Manual) PT INR D-Dimer POC ABG pH POC ABG pCO2 POC ABG pO2 ABG pO2 ABG HCO3 ABG Base Excess ABG Hemoglobin Oxyhemoglobin Sodium Potassium Chloride Carbon Dioxide BUN Creatinine Glucose POC Glucose 108 H 128 H 144 H Calcium Phosphorus Magnesium ALT Alkaline Phosphatase Total Creatine Kinase CK-MB (CK-2) Rel Index Troponin T Albumin LDL Cholesterol Direct PTH Intact Salicylates Acetaminophen Crossmatch 03/10/19 03/11/19 03/11/19 16:50 00:24 05:02 WBC RBC Hgb Hct MCV MCH MCHC RDW Plt Count Lymph % (Auto) [place] % (Auto) Eos % (Auto) Baso % (Auto) Lymph # Runnels # Eos # Baso # Seg Neutrophils % Seg Neuts % (Manual) Lymphocytes % (Manual) Eosinophils % (Manual) Seg Neutrophils # Lymphocytes # (Manual) Eosinophils # (Manual) PT INR D-Dimer POC ABG pH POC ABG pCO2 POC ABG pO2 ABG pO2 ABG HCO3 ABG Base Excess ABG Hemoglobin Oxyhemoglobin Sodium Potassium Chloride Carbon Dioxide BUN Creatinine Glucose POC Glucose 147 H 123 H 120 H Calcium Phosphorus Magnesium ALT Alkaline Phosphatase Total Creatine Kinase CK-MB (CK-2) Rel Index Troponin T Albumin LDL Cholesterol Direct PTH Intact Salicylates Acetaminophen Crossmatch 03/11/19 03/11/19 03/11/19 11:56 12:20 18:37 WBC RBC Hgb Hct MCV MCH MCHC RDW Plt Count Lymph % (Auto) [place] % (Auto) Eos % (Auto) Baso % (Auto) Lymph # [place] # Eos # Baso # Seg Neutrophils % Seg Neuts % (Manual) Lymphocytes % (Manual) Eosinophils % (Manual) Seg Neutrophils # Lymphocytes # (Manual) Eosinophils # (Manual) PT INR D-Dimer POC ABG pH POC ABG pCO2 POC ABG pO2 ABG pO2 ABG HCO3 ABG Base Excess ABG Hemoglobin Oxyhemoglobin Sodium Potassium 5.2 H Chloride Carbon Dioxide BUN Creatinine Glucose POC Glucose 123 H 125 H Calcium Phosphorus Magnesium ALT Alkaline Phosphatase Total Creatine Kinase CK-MB (CK-2) Rel Index Troponin T Albumin LDL Cholesterol Direct PTH Intact Salicylates Acetaminophen Crossmatch 03/11/19 03/12/19 03/12/19 22:52 12:04 18:25 WBC RBC Hgb Hct MCV MCH MCHC RDW Plt Count Lymph % (Auto) [place] % (Auto) Eos % (Auto) Baso % (Auto) Lymph # [place] # Eos # Baso # Seg Neutrophils % Seg Neuts % (Manual) Lymphocytes % (Manual) Eosinophils % (Manual) Seg Neutrophils # Lymphocytes # (Manual) Eosinophils # (Manual) PT INR D-Dimer POC ABG pH POC ABG pCO2 POC ABG pO2 ABG pO2 ABG HCO3 ABG Base Excess ABG Hemoglobin Oxyhemoglobin Sodium Potassium Chloride Carbon Dioxide BUN Creatinine Glucose POC Glucose 110 H 106 H 118 H Calcium Phosphorus Magnesium ALT Alkaline Phosphatase Total Creatine Kinase CK-MB (CK-2) Rel Index Troponin T Albumin LDL Cholesterol Direct PTH Intact Salicylates Acetaminophen Crossmatch 03/12/19 03/13/19 03/13/19 23:36 04:38 04:38 WBC RBC 2.95 L Hgb 7.9 L Hct 24.9 L MCV MCH 27 L MCHC RDW 19.9 H Plt Count Lymph % (Auto) 11.1 L [place] % (Auto) 8.1 H Eos % (Auto) 4.4 H Baso % (Auto) Lymph # 0.9 L [place] # Eos # Baso # Seg Neutrophils % 75.4 H Seg Neuts % (Manual) Lymphocytes % (Manual) Eosinophils % (Manual) Seg Neutrophils # Lymphocytes # (Manual) Eosinophils # (Manual) PT INR D-Dimer POC ABG pH POC ABG pCO2 POC ABG pO2 ABG pO2 ABG HCO3 ABG Base Excess ABG Hemoglobin Oxyhemoglobin Sodium 136 L Potassium 5.1 H Chloride 93.8 L Carbon Dioxide BUN 48 H Creatinine 2.7 H Glucose 102 H POC Glucose 115 H Calcium Phosphorus Magnesium ALT < 5 L Alkaline Phosphatase 143 H Total Creatine Kinase CK-MB (CK-2) Rel Index Troponin T Albumin 2.5 L LDL Cholesterol Direct PTH Intact Salicylates Acetaminophen Crossmatch 03/13/19 03/13/19 03/13/19 05:33 13:37 18:03 WBC RBC Hgb Hct MCV MCH MCHC RDW Plt Count Lymph % (Auto) [place] % (Auto) Eos % (Auto) Baso % (Auto) Lymph # [place] # Eos # Baso # Seg Neutrophils % Seg Neuts % (Manual) Lymphocytes % (Manual) Eosinophils % (Manual) Seg Neutrophils # Lymphocytes # (Manual) Eosinophils # (Manual) PT INR D-Dimer POC ABG pH POC ABG pCO2 POC ABG pO2 ABG pO2 ABG HCO3 ABG Base Excess ABG Hemoglobin Oxyhemoglobin Sodium Potassium Chloride Carbon Dioxide BUN Creatinine Glucose POC Glucose 140 H 150 H 158 H Calcium Phosphorus Magnesium ALT Alkaline Phosphatase Total Creatine Kinase CK-MB (CK-2) Rel Index Troponin T Albumin LDL Cholesterol Direct PTH Intact Salicylates Acetaminophen Crossmatch 03/13/19 03/14/19 03/14/19 23:32 05:24 12:20 WBC RBC Hgb Hct MCV MCH MCHC RDW Plt Count Lymph % (Auto) [place] % (Auto) Eos % (Auto) Baso % (Auto) Lymph # [place] # Eos # Baso # Seg Neutrophils % Seg Neuts % (Manual) Lymphocytes % (Manual) Eosinophils % (Manual) Seg Neutrophils # Lymphocytes # (Manual) Eosinophils # (Manual) PT INR D-Dimer POC ABG pH POC ABG pCO2 POC ABG pO2 ABG pO2 ABG HCO3 ABG Base Excess ABG Hemoglobin Oxyhemoglobin Sodium Potassium Chloride Carbon Dioxide BUN Creatinine Glucose POC Glucose 162 H 146 H 127 H Calcium Phosphorus Magnesium ALT Alkaline Phosphatase Total Creatine Kinase CK-MB (CK-2) Rel Index Troponin T Albumin LDL Cholesterol Direct PTH Intact Salicylates Acetaminophen Crossmatch 03/14/19 03/14/19 03/15/19 18:05 23:57 04:38 WBC 12.8 H RBC 3.11 L Hgb 8.1 L Hct 26.5 L MCV MCH 26 L MCHC 31 L RDW 19.7 H Plt Count Lymph % (Auto) 4.4 L [place] % (Auto) 7.4 H Eos % (Auto) Baso % (Auto) Lymph # 0.6 L [place] # 0.9 H Eos # Baso # Seg Neutrophils % 87.3 H Seg Neuts % (Manual) Lymphocytes % (Manual) Eosinophils % (Manual) Seg Neutrophils # 11.2 H Lymphocytes # (Manual) Eosinophils # (Manual) PT INR D-Dimer POC ABG pH POC ABG pCO2 POC ABG pO2 ABG pO2 ABG HCO3 ABG Base Excess ABG Hemoglobin Oxyhemoglobin Sodium Potassium Chloride Carbon Dioxide BUN Creatinine Glucose POC Glucose 142 H 155 H Calcium Phosphorus Magnesium ALT Alkaline Phosphatase Total Creatine Kinase CK-MB (CK-2) Rel Index Troponin T Albumin LDL Cholesterol Direct PTH Intact Salicylates Acetaminophen Crossmatch 03/15/19 03/15/19 03/15/19 04:38 05:31 11:32 WBC RBC Hgb Hct MCV MCH MCHC RDW Plt Count Lymph % (Auto) [place] % (Auto) Eos % (Auto) Baso % (Auto) Lymph # [place] # Eos # Baso # Seg Neutrophils % Seg Neuts % (Manual) Lymphocytes % (Manual) Eosinophils % (Manual) Seg Neutrophils # Lymphocytes # (Manual) Eosinophils # (Manual) PT INR D-Dimer POC ABG pH POC ABG pCO2 POC ABG pO2 ABG pO2 ABG HCO3 ABG Base Excess ABG Hemoglobin Oxyhemoglobin Sodium 135 L Potassium Chloride 91.9 L Carbon Dioxide BUN 54 H Creatinine 2.8 H Glucose 128 H POC Glucose 160 H 109 H Calcium 11.1 H Phosphorus Magnesium ALT Alkaline Phosphatase 161 H Total Creatine Kinase CK-MB (CK-2) Rel Index Troponin T Albumin 2.3 L LDL Cholesterol Direct PTH Intact Salicylates Acetaminophen Crossmatch 03/15/19 03/15/19 03/16/19 18:15 23:41 05:40 WBC RBC Hgb Hct MCV MCH MCHC RDW Plt Count Lymph % (Auto) [place] % (Auto) Eos % (Auto) Baso % (Auto) Lymph # [place] # Eos # Baso # Seg Neutrophils % Seg Neuts % (Manual) Lymphocytes % (Manual) Eosinophils % (Manual) Seg Neutrophils # Lymphocytes # (Manual) Eosinophils # (Manual) PT INR D-Dimer POC ABG pH POC ABG pCO2 POC ABG pO2 ABG pO2 ABG HCO3 ABG Base Excess ABG Hemoglobin Oxyhemoglobin Sodium Potassium Chloride Carbon Dioxide BUN Creatinine Glucose POC Glucose 151 H 110 H 163 H Calcium Phosphorus Magnesium ALT Alkaline Phosphatase Total Creatine Kinase CK-MB (CK-2) Rel Index Troponin T Albumin LDL Cholesterol Direct PTH Intact Salicylates Acetaminophen Crossmatch 03/16/19 03/16/19 03/16/19 11:55 17:04 23:58 WBC RBC Hgb Hct MCV MCH MCHC RDW Plt Count Lymph % (Auto) [place] % (Auto) Eos % (Auto) Baso % (Auto) Lymph # [place] # Eos # Baso # Seg Neutrophils % Seg Neuts % (Manual) Lymphocytes % (Manual) Eosinophils % (Manual) Seg Neutrophils # Lymphocytes # (Manual) Eosinophils # (Manual) PT INR D-Dimer POC ABG pH POC ABG pCO2 POC ABG pO2 ABG pO2 ABG HCO3 ABG Base Excess ABG Hemoglobin Oxyhemoglobin Sodium Potassium Chloride Carbon Dioxide BUN Creatinine Glucose POC Glucose 114 H 147 H 192 H Calcium Phosphorus Magnesium ALT Alkaline Phosphatase Total Creatine Kinase CK-MB (CK-2) Rel Index Troponin T Albumin LDL Cholesterol Direct PTH Intact Salicylates Acetaminophen Crossmatch 03/17/19 03/17/19 03/17/19 05:53 11:17 17:01 WBC RBC Hgb Hct MCV MCH MCHC RDW Plt Count Lymph % (Auto) [place] % (Auto) Eos % (Auto) Baso % (Auto) Lymph # [place] # Eos # Baso # Seg Neutrophils % Seg Neuts % (Manual) Lymphocytes % (Manual) Eosinophils % (Manual) Seg Neutrophils # Lymphocytes # (Manual) Eosinophils # (Manual) PT INR D-Dimer POC ABG pH POC ABG pCO2 POC ABG pO2 ABG pO2 ABG HCO3 ABG Base Excess ABG Hemoglobin Oxyhemoglobin Sodium Potassium Chloride Carbon Dioxide BUN Creatinine Glucose POC Glucose 151 H 161 H 152 H Calcium Phosphorus Magnesium ALT Alkaline Phosphatase Total Creatine Kinase CK-MB (CK-2) Rel Index Troponin T Albumin LDL Cholesterol Direct PTH Intact Salicylates Acetaminophen Crossmatch 03/17/19 03/18/19 03/18/19 21:47 04:15 04:44 WBC RBC Hgb Hct MCV MCH MCHC RDW Plt Count Lymph % (Auto) [place] % (Auto) Eos % (Auto) Baso % (Auto) Lymph # [place] # Eos # Baso # Seg Neutrophils % Seg Neuts % (Manual) Lymphocytes % (Manual) Eosinophils % (Manual) Seg Neutrophils # Lymphocytes # (Manual) Eosinophils # (Manual) PT INR D-Dimer POC ABG pH POC ABG pCO2 POC ABG pO2 ABG pO2 102.8 H ABG HCO3 28.3 H ABG Base Excess ABG Hemoglobin 10.4 L Oxyhemoglobin 94.5 L Sodium Potassium Chloride Carbon Dioxide BUN Creatinine Glucose POC Glucose 170 H 150 H Calcium Phosphorus Magnesium ALT Alkaline Phosphatase Total Creatine Kinase CK-MB (CK-2) Rel Index Troponin T Albumin LDL Cholesterol Direct PTH Intact Salicylates Acetaminophen Crossmatch 03/18/19 03/18/19 03/18/19 06:38 12:12 17:47 WBC RBC Hgb Hct MCV MCH MCHC RDW Plt Count Lymph % (Auto) [place] % (Auto) Eos % (Auto) Baso % (Auto) Lymph # [place] # Eos # Baso # Seg Neutrophils % Seg Neuts % (Manual) Lymphocytes % (Manual) Eosinophils % (Manual) Seg Neutrophils # Lymphocytes # (Manual) Eosinophils # (Manual) PT INR D-Dimer POC ABG pH 7.510 H POC ABG pCO2 POC ABG pO2 164 H ABG pO2 ABG HCO3 ABG Base Excess ABG Hemoglobin Oxyhemoglobin Sodium Potassium Chloride Carbon Dioxide BUN Creatinine Glucose POC Glucose 145 H 149 H Calcium Phosphorus Magnesium ALT Alkaline Phosphatase Total Creatine Kinase CK-MB (CK-2) Rel Index Troponin T Albumin LDL Cholesterol Direct PTH Intact Salicylates Acetaminophen Crossmatch 03/18/19 03/19/19 03/19/19 23:25 01:11 04:23 WBC 15.6 H RBC 2.51 L Hgb 6.5 L Hct 21.6 L MCV MCH 26 L MCHC 30 L RDW 19.8 H Plt Count Lymph % (Auto) 6.0 L [place] % (Auto) Eos % (Auto) Baso % (Auto) Lymph # 0.9 L [place] # 1.0 H Eos # Baso # Seg Neutrophils % 85.5 H Seg Neuts % (Manual) Lymphocytes % (Manual) Eosinophils % (Manual) Seg Neutrophils # 13.4 H Lymphocytes # (Manual) Eosinophils # (Manual) PT INR D-Dimer POC ABG pH POC ABG pCO2 POC ABG pO2 ABG pO2 78.3 L ABG HCO3 30.7 H ABG Base Excess 5.8 H ABG Hemoglobin 5.8 L Oxyhemoglobin 94.6 L Sodium Potassium Chloride Carbon Dioxide BUN Creatinine Glucose POC Glucose 190 H Calcium Phosphorus Magnesium ALT Alkaline Phosphatase Total Creatine Kinase CK-MB (CK-2) Rel Index Troponin T Albumin LDL Cholesterol Direct PTH Intact Salicylates Acetaminophen Crossmatch 03/19/19 03/19/19 03/19/19 05:22 05:35 08:54 WBC RBC Hgb Hct MCV MCH MCHC RDW Plt Count Lymph % (Auto) [place] % (Auto) Eos % (Auto) Baso % (Auto) Lymph # [place] # Eos # Baso # Seg Neutrophils % Seg Neuts % (Manual) Lymphocytes % (Manual) Eosinophils % (Manual) Seg Neutrophils # Lymphocytes # (Manual) Eosinophils # (Manual) PT INR D-Dimer POC ABG pH POC ABG pCO2 POC ABG pO2 ABG pO2 ABG HCO3 ABG Base Excess ABG Hemoglobin Oxyhemoglobin Sodium Potassium Chloride Carbon Dioxide BUN Creatinine Glucose POC Glucose 167 H Calcium Phosphorus Magnesium ALT Alkaline Phosphatase Total Creatine Kinase CK-MB (CK-2) Rel Index Troponin T Albumin LDL Cholesterol Direct PTH Intact Salicylates Acetaminophen Crossmatch See Detail See Detail 03/19/19 03/19/19 03/19/19 12:36 17:02 23:25 WBC RBC Hgb Hct MCV MCH MCHC RDW Plt Count Lymph % (Auto) [place] % (Auto) Eos % (Auto) Baso % (Auto) Lymph # [place] # Eos # Baso # Seg Neutrophils % Seg Neuts % (Manual) Lymphocytes % (Manual) Eosinophils % (Manual) Seg Neutrophils # Lymphocytes # (Manual) Eosinophils # (Manual) PT INR D-Dimer POC ABG pH POC ABG pCO2 POC ABG pO2 ABG pO2 ABG HCO3 ABG Base Excess ABG Hemoglobin Oxyhemoglobin Sodium Potassium Chloride Carbon Dioxide BUN Creatinine Glucose POC Glucose 167 H 135 H 136 H Calcium Phosphorus Magnesium ALT Alkaline Phosphatase Total Creatine Kinase CK-MB (CK-2) Rel Index Troponin T Albumin LDL Cholesterol Direct PTH Intact Salicylates Acetaminophen Crossmatch 03/20/19 03/20/19 03/20/19 05:38 08:40 08:40 WBC RBC 2.61 L Hgb 7.1 L Hct 22.0 L MCV MCH 27 L MCHC RDW 19.6 H Plt Count Lymph % (Auto) 8.2 L [place] % (Auto) 8.3 H Eos % (Auto) 5.7 H Baso % (Auto) Lymph # 0.8 L [place] # Eos # 0.5 H Baso # Seg Neutrophils % 77.3 H Seg Neuts % (Manual) Lymphocytes % (Manual) Eosinophils % (Manual) Seg Neutrophils # Lymphocytes # (Manual) Eosinophils # (Manual) PT INR D-Dimer POC ABG pH POC ABG pCO2 POC ABG pO2 ABG pO2 ABG HCO3 ABG Base Excess ABG Hemoglobin Oxyhemoglobin Sodium Potassium Chloride 95.9 L Carbon Dioxide BUN 69 H Creatinine 2.8 H Glucose 115 H POC Glucose 134 H Calcium 10.5 H Phosphorus Magnesium ALT Alkaline Phosphatase Total Creatine Kinase CK-MB (CK-2) Rel Index Troponin T Albumin LDL Cholesterol Direct PTH Intact Salicylates Acetaminophen Crossmatch 03/20/19 03/20/19 03/20/19 12:13 18:04 23:49 WBC RBC Hgb Hct MCV MCH MCHC RDW Plt Count Lymph % (Auto) [place] % (Auto) Eos % (Auto) Baso % (Auto) Lymph # [place] # Eos # Baso # Seg Neutrophils % Seg Neuts % (Manual) Lymphocytes % (Manual) Eosinophils % (Manual) Seg Neutrophils # Lymphocytes # (Manual) Eosinophils # (Manual) PT INR D-Dimer POC ABG pH POC ABG pCO2 POC ABG pO2 ABG pO2 ABG HCO3 ABG Base Excess ABG Hemoglobin Oxyhemoglobin Sodium Potassium Chloride Carbon Dioxide BUN Creatinine Glucose POC Glucose 144 H 165 H 172 H Calcium Phosphorus Magnesium ALT Alkaline Phosphatase Total Creatine Kinase CK-MB (CK-2) Rel Index Troponin T Albumin LDL Cholesterol Direct PTH Intact Salicylates Acetaminophen Crossmatch 03/21/19 03/21/19 03/21/19 05:00 06:29 06:30 WBC RBC 2.72 L Hgb 7.4 L Hct 22.9 L MCV MCH 27 L MCHC RDW 19.4 H Plt Count Lymph % (Auto) [place] % (Auto) Eos % (Auto) Baso % (Auto) Lymph # [place] # Eos # Baso # Seg Neutrophils % Seg Neuts % (Manual) 81.0 H Lymphocytes % (Manual) 8.0 L Eosinophils % (Manual) 8.0 H Seg Neutrophils # Lymphocytes # (Manual) 0.7 L Eosinophils # (Manual) 0.7 H PT INR D-Dimer POC ABG pH POC ABG pCO2 POC ABG pO2 ABG pO2 ABG HCO3 ABG Base Excess ABG Hemoglobin Oxyhemoglobin Sodium Potassium Chloride Carbon Dioxide 33 H BUN 43 H Creatinine 1.7 H Glucose 145 H POC Glucose 156 H Calcium Phosphorus Magnesium ALT Alkaline Phosphatase 212 H Total Creatine Kinase CK-MB (CK-2) Rel Index Troponin T Albumin 2.2 L LDL Cholesterol Direct PTH Intact Salicylates Acetaminophen Crossmatch 03/21/19 03/21/19 03/22/19 12:02 18:07 00:21 WBC RBC Hgb Hct MCV MCH MCHC RDW Plt Count Lymph % (Auto) [place] % (Auto) Eos % (Auto) Baso % (Auto) Lymph # [place] # Eos # Baso # Seg Neutrophils % Seg Neuts % (Manual) Lymphocytes % (Manual) Eosinophils % (Manual) Seg Neutrophils # Lymphocytes # (Manual) Eosinophils # (Manual) PT INR D-Dimer POC ABG pH POC ABG pCO2 POC ABG pO2 ABG pO2 ABG HCO3 ABG Base Excess ABG Hemoglobin Oxyhemoglobin Sodium Potassium Chloride Carbon Dioxide BUN Creatinine Glucose POC Glucose 163 H 144 H 153 H Calcium Phosphorus Magnesium ALT Alkaline Phosphatase Total Creatine Kinase CK-MB (CK-2) Rel Index Troponin T Albumin LDL Cholesterol Direct PTH Intact Salicylates Acetaminophen Crossmatch 03/22/19 03/22/19 03/22/19 05:23 05:23 05:31 WBC RBC 2.58 L Hgb 7.1 L Hct 21.8 L MCV MCH 27 L MCHC RDW 19.2 H Plt Count Lymph % (Auto) [place] % (Auto) Eos % (Auto) Baso % (Auto) Lymph # [place] # Eos # Baso # Seg Neutrophils % Seg Neuts % (Manual) Lymphocytes % (Manual) Eosinophils % (Manual) Seg Neutrophils # Lymphocytes # (Manual) Eosinophils # (Manual) PT INR D-Dimer POC ABG pH POC ABG pCO2 POC ABG pO2 ABG pO2 ABG HCO3 ABG Base Excess ABG Hemoglobin Oxyhemoglobin Sodium 147 H Potassium Chloride Carbon Dioxide BUN 68 H Creatinine 2.5 H Glucose POC Glucose 116 H Calcium 10.3 H Phosphorus Magnesium ALT Alkaline Phosphatase Total Creatine Kinase CK-MB (CK-2) Rel Index Troponin T Albumin LDL Cholesterol Direct PTH Intact Salicylates Acetaminophen Crossmatch 03/22/19 03/22/19 03/22/19 08:48 12:37 17:35 WBC RBC Hgb Hct MCV MCH MCHC RDW Plt Count Lymph % (Auto) [place] % (Auto) Eos % (Auto) Baso % (Auto) Lymph # [place] # Eos # Baso # Seg Neutrophils % Seg Neuts % (Manual) Lymphocytes % (Manual) Eosinophils % (Manual) Seg Neutrophils # Lymphocytes # (Manual) Eosinophils # (Manual) PT INR D-Dimer POC ABG pH POC ABG pCO2 POC ABG pO2 ABG pO2 ABG HCO3 ABG Base Excess ABG Hemoglobin Oxyhemoglobin Sodium Potassium Chloride Carbon Dioxide BUN Creatinine Glucose POC Glucose 143 H 155 H Calcium Phosphorus Magnesium ALT Alkaline Phosphatase Total Creatine Kinase CK-MB (CK-2) Rel Index Troponin T Albumin LDL Cholesterol Direct PTH Intact Salicylates Acetaminophen Crossmatch See Detail 03/23/19 03/23/19 03/23/19 00:07 04:00 04:00 WBC 11.2 H RBC 2.32 L Hgb 6.4 L Hct 19.7 L* MCV MCH MCHC RDW 19.4 H Plt Count Lymph % (Auto) [place] % (Auto) Eos % (Auto) Baso % (Auto) Lymph # [place] # Eos # Baso # Seg Neutrophils % Seg Neuts % (Manual) Lymphocytes % (Manual) Eosinophils % (Manual) Seg Neutrophils # Lymphocytes # (Manual) Eosinophils # (Manual) PT INR D-Dimer POC ABG pH POC ABG pCO2 POC ABG pO2 ABG pO2 ABG HCO3 ABG Base Excess ABG Hemoglobin Oxyhemoglobin Sodium 147 H Potassium 5.2 H Chloride Carbon Dioxide BUN 86 H Creatinine 3.2 H Glucose 128 H POC Glucose 135 H Calcium 10.3 H Phosphorus Magnesium ALT Alkaline Phosphatase Total Creatine Kinase CK-MB (CK-2) Rel Index Troponin T Albumin LDL Cholesterol Direct PTH Intact Salicylates Acetaminophen Crossmatch 03/23/19 03/23/19 03/23/19 05:21 11:36 11:36 WBC RBC Hgb 7.9 L Hct 25.0 L MCV MCH MCHC RDW Plt Count Lymph % (Auto) [place] % (Auto) Eos % (Auto) Baso % (Auto) Lymph # [place] # Eos # Baso # Seg Neutrophils % Seg Neuts % (Manual) Lymphocytes % (Manual) Eosinophils % (Manual) Seg Neutrophils # Lymphocytes # (Manual) Eosinophils # (Manual) PT INR D-Dimer POC ABG pH POC ABG pCO2 POC ABG pO2 ABG pO2 ABG HCO3 ABG Base Excess ABG Hemoglobin Oxyhemoglobin Sodium Potassium Chloride Carbon Dioxide BUN Creatinine Glucose POC Glucose 132 H 147 H Calcium Phosphorus Magnesium ALT Alkaline Phosphatase Total Creatine Kinase CK-MB (CK-2) Rel Index Troponin T Albumin LDL Cholesterol Direct PTH Intact Salicylates Acetaminophen Crossmatch 03/23/19 03/24/19 03/24/19 17:31 01:22 04:20 WBC 12.2 H RBC 3.05 L Hgb 8.3 L Hct 25.9 L MCV MCH 27 L MCHC RDW 18.7 H Plt Count Lymph % (Auto) [place] % (Auto) Eos % (Auto) Baso % (Auto) Lymph # [place] # Eos # Baso # Seg Neutrophils % Seg Neuts % (Manual) Lymphocytes % (Manual) Eosinophils % (Manual) Seg Neutrophils # Lymphocytes # (Manual) Eosinophils # (Manual) PT INR D-Dimer POC ABG pH POC ABG pCO2 POC ABG pO2 ABG pO2 ABG HCO3 ABG Base Excess ABG Hemoglobin Oxyhemoglobin Sodium Potassium Chloride Carbon Dioxide BUN Creatinine Glucose POC Glucose 182 H 113 H Calcium Phosphorus Magnesium ALT Alkaline Phosphatase Total Creatine Kinase CK-MB (CK-2) Rel Index Troponin T Albumin LDL Cholesterol Direct PTH Intact Salicylates Acetaminophen Crossmatch 03/24/19 03/24/19 03/24/19 04:20 11:59 18:14 WBC RBC Hgb Hct MCV MCH MCHC RDW Plt Count Lymph % (Auto) [place] % (Auto) Eos % (Auto) Baso % (Auto) Lymph # [place] # Eos # Baso # Seg Neutrophils % Seg Neuts % (Manual) Lymphocytes % (Manual) Eosinophils % (Manual) Seg Neutrophils # Lymphocytes # (Manual) Eosinophils # (Manual) PT INR D-Dimer POC ABG pH POC ABG pCO2 POC ABG pO2 ABG pO2 ABG HCO3 ABG Base Excess ABG Hemoglobin Oxyhemoglobin Sodium Potassium Chloride 94.8 L Carbon Dioxide 32 H BUN 53 H Creatinine 2.3 H Glucose POC Glucose 163 H 134 H Calcium Phosphorus Magnesium ALT Alkaline Phosphatase Total Creatine Kinase CK-MB (CK-2) Rel Index Troponin T Albumin LDL Cholesterol Direct PTH Intact Salicylates Acetaminophen Crossmatch 03/24/19 03/25/19 03/25/19 23:15 05:52 12:02 WBC RBC Hgb Hct MCV MCH MCHC RDW Plt Count Lymph % (Auto) [place] % (Auto) Eos % (Auto) Baso % (Auto) Lymph # [place] # Eos # Baso # Seg Neutrophils % Seg Neuts % (Manual) Lymphocytes % (Manual) Eosinophils % (Manual) Seg Neutrophils # Lymphocytes # (Manual) Eosinophils # (Manual) PT INR D-Dimer POC ABG pH POC ABG pCO2 POC ABG pO2 ABG pO2 ABG HCO3 ABG Base Excess ABG Hemoglobin Oxyhemoglobin Sodium Potassium Chloride Carbon Dioxide BUN Creatinine Glucose POC Glucose 129 H 123 H 125 H Calcium Phosphorus Magnesium ALT Alkaline Phosphatase Total Creatine Kinase CK-MB (CK-2) Rel Index Troponin T Albumin LDL Cholesterol Direct PTH Intact Salicylates Acetaminophen Crossmatch 03/25/19 03/26/19 03/26/19 17:27 00:30 05:35 WBC RBC 3.01 L Hgb 8.1 L Hct 25.7 L MCV MCH 27 L MCHC RDW 19.2 H Plt Count Lymph % (Auto) 11.4 L [place] % (Auto) Eos % (Auto) 8.0 H Baso % (Auto) Lymph # 1.0 L [place] # Eos # 0.7 H Baso # Seg Neutrophils % 73.9 H Seg Neuts % (Manual) Lymphocytes % (Manual) Eosinophils % (Manual) Seg Neutrophils # Lymphocytes # (Manual) Eosinophils # (Manual) PT INR D-Dimer POC ABG pH POC ABG pCO2 POC ABG pO2 ABG pO2 ABG HCO3 ABG Base Excess ABG Hemoglobin Oxyhemoglobin Sodium Potassium Chloride Carbon Dioxide BUN Creatinine Glucose POC Glucose 130 H 129 H Calcium Phosphorus Magnesium ALT Alkaline Phosphatase Total Creatine Kinase CK-MB (CK-2) Rel Index Troponin T Albumin LDL Cholesterol Direct PTH Intact Salicylates Acetaminophen Crossmatch 03/26/19 03/26/19 03/26/19 05:35 05:45 12:16 WBC RBC Hgb Hct MCV MCH MCHC RDW Plt Count Lymph % (Auto) [place] % (Auto) Eos % (Auto) Baso % (Auto) Lymph # [place] # Eos # Baso # Seg Neutrophils % Seg Neuts % (Manual) Lymphocytes % (Manual) Eosinophils % (Manual) Seg Neutrophils # Lymphocytes # (Manual) Eosinophils # (Manual) PT INR D-Dimer POC ABG pH POC ABG pCO2 POC ABG pO2 ABG pO2 ABG HCO3 ABG Base Excess ABG Hemoglobin Oxyhemoglobin Sodium Potassium Chloride 94.9 L Carbon Dioxide 31 H BUN 44 H Creatinine 2.0 H Glucose POC Glucose 118 H 107 H Calcium Phosphorus Magnesium ALT Alkaline Phosphatase Total Creatine Kinase CK-MB (CK-2) Rel Index Troponin T Albumin LDL Cholesterol Direct PTH Intact Salicylates Acetaminophen Crossmatch 03/26/19 03/27/19 03/27/19 17:56 00:36 05:37 WBC RBC Hgb Hct MCV MCH MCHC RDW Plt Count Lymph % (Auto) [place] % (Auto) Eos % (Auto) Baso % (Auto) Lymph # [place] # Eos # Baso # Seg Neutrophils % Seg Neuts % (Manual) Lymphocytes % (Manual) Eosinophils % (Manual) Seg Neutrophils # Lymphocytes # (Manual) Eosinophils # (Manual) PT INR D-Dimer POC ABG pH POC ABG pCO2 POC ABG pO2 ABG pO2 ABG HCO3 ABG Base Excess ABG Hemoglobin Oxyhemoglobin Sodium Potassium Chloride Carbon Dioxide BUN Creatinine Glucose POC Glucose 107 H 110 H 122 H Calcium Phosphorus Magnesium ALT Alkaline Phosphatase Total Creatine Kinase CK-MB (CK-2) Rel Index Troponin T Albumin LDL Cholesterol Direct PTH Intact Salicylates Acetaminophen Crossmatch 03/27/19 03/27/19 03/28/19 11:22 18:00 05:17 WBC RBC Hgb Hct MCV MCH MCHC RDW Plt Count Lymph % (Auto) [place] % (Auto) Eos % (Auto) Baso % (Auto) Lymph # R[place] # Eos # Baso # Seg Neutrophils % Seg Neuts % (Manual) Lymphocytes % (Manual) Eosinophils % (Manual) Seg Neutrophils # Lymphocytes # (Manual) Eosinophils # (Manual) PT INR D-Dimer POC ABG pH POC ABG pCO2 POC ABG pO2 ABG pO2 ABG HCO3 ABG Base Excess ABG Hemoglobin Oxyhemoglobin Sodium Potassium Chloride Carbon Dioxide BUN Creatinine Glucose POC Glucose 120 H 111 H 107 H Calcium Phosphorus Magnesium ALT Alkaline Phosphatase Total Creatine Kinase CK-MB (CK-2) Rel Index Troponin T Albumin LDL Cholesterol Direct PTH Intact Salicylates Acetaminophen Crossmatch 03/28/19 03/28/19 03/29/19 12:27 18:08 05:47 WBC RBC Hgb Hct MCV MCH MCHC RDW Plt Count Lymph % (Auto) [place] % (Auto) Eos % (Auto) Baso % (Auto) Lymph # R[place]els # Eos # Baso # Seg Neutrophils % Seg Neuts % (Manual) Lymphocytes % (Manual) Eosinophils % (Manual) Seg Neutrophils # Lymphocytes # (Manual) Eosinophils # (Manual) PT INR D-Dimer POC ABG pH POC ABG pCO2 POC ABG pO2 ABG pO2 ABG HCO3 ABG Base Excess ABG Hemoglobin Oxyhemoglobin Sodium Potassium Chloride Carbon Dioxide BUN Creatinine Glucose POC Glucose 114 H 121 H 112 H Calcium Phosphorus Magnesium ALT Alkaline Phosphatase Total Creatine Kinase CK-MB (CK-2) Rel Index Troponin T Albumin LDL Cholesterol Direct PTH Intact Salicylates Acetaminophen Crossmatch 03/29/19 03/29/19 03/30/19 12:14 18:08 00:31 WBC RBC Hgb Hct MCV MCH MCHC RDW Plt Count Lymph % (Auto) [place] % (Auto) Eos % (Auto) Baso % (Auto) Lymph # R[place]els # Eos # Baso # Seg Neutrophils % Seg Neuts % (Manual) Lymphocytes % (Manual) Eosinophils % (Manual) Seg Neutrophils # Lymphocytes # (Manual) Eosinophils # (Manual) PT INR D-Dimer POC ABG pH POC ABG pCO2 POC ABG pO2 ABG pO2 ABG HCO3 ABG Base Excess ABG Hemoglobin Oxyhemoglobin Sodium Potassium Chloride Carbon Dioxide BUN Creatinine Glucose POC Glucose 117 H 140 H 114 H Calcium Phosphorus Magnesium ALT Alkaline Phosphatase Total Creatine Kinase CK-MB (CK-2) Rel Index Troponin T Albumin LDL Cholesterol Direct PTH Intact Salicylates Acetaminophen Crossmatch 03/30/19 03/30/19 03/30/19 10:13 10:13 23:53 WBC RBC 2.81 L Hgb 7.7 L Hct 24.3 L MCV MCH 27 L MCHC RDW 19.0 H Plt Count Lymph % (Auto) 12.2 L [place] % (Auto) Eos % (Auto) 7.9 H Baso % (Auto) Lymph # 1.0 L [place] # Eos # 0.6 H Baso # Seg Neutrophils % 72.3 H Seg Neuts % (Manual) Lymphocytes % (Manual) Eosinophils % (Manual) Seg Neutrophils # Lymphocytes # (Manual) Eosinophils # (Manual) PT INR D-Dimer POC ABG pH POC ABG pCO2 POC ABG pO2 ABG pO2 ABG HCO3 ABG Base Excess ABG Hemoglobin Oxyhemoglobin Sodium Potassium 5.1 H Chloride 96.5 L Carbon Dioxide BUN 73 H Creatinine 3.9 H D Glucose POC Glucose 114 H Calcium 10.3 H Phosphorus 6.30 H Magnesium 2.70 H ALT Alkaline Phosphatase 185 H Total Creatine Kinase CK-MB (CK-2) Rel Index Troponin T Albumin 2.6 L LDL Cholesterol Direct PTH Intact Salicylates Acetaminophen Crossmatch 03/31/19 03/31/19 03/31/19 05:45 10:26 10:26 WBC RBC 3.01 L Hgb 8.2 L Hct 26.4 L MCV MCH 27 L MCHC 31 L RDW 20.3 H Plt Count Lymph % (Auto) 13.3 L [place] % (Auto) Eos % (Auto) 7.2 H Baso % (Auto) Lymph # 1.1 L [place] # Eos # 0.6 H Baso # Seg Neutrophils % 72.1 H Seg Neuts % (Manual) Lymphocytes % (Manual) Eosinophils % (Manual) Seg Neutrophils # Lymphocytes # (Manual) Eosinophils # (Manual) PT INR D-Dimer POC ABG pH POC ABG pCO2 POC ABG pO2 ABG pO2 ABG HCO3 ABG Base Excess ABG Hemoglobin Oxyhemoglobin Sodium Potassium Chloride 96.9 L Carbon Dioxide 33 H BUN 37 H Creatinine 2.4 H Glucose POC Glucose 108 H Calcium 10.3 H Phosphorus Magnesium ALT Alkaline Phosphatase Total Creatine Kinase CK-MB (CK-2) Rel Index Troponin T Albumin LDL Cholesterol Direct PTH Intact Salicylates Acetaminophen Crossmatch 03/31/19 04/01/19 04/01/19 12:38 05:48 12:06 WBC RBC Hgb Hct MCV MCH MCHC RDW Plt Count Lymph % (Auto) [place] % (Auto) Eos % (Auto) Baso % (Auto) Lymph # Runnels # Eos # Baso # Seg Neutrophils % Seg Neuts % (Manual) Lymphocytes % (Manual) Eosinophils % (Manual) Seg Neutrophils # Lymphocytes # (Manual) Eosinophils # (Manual) PT INR D-Dimer POC ABG pH POC ABG pCO2 POC ABG pO2 ABG pO2 ABG HCO3 ABG Base Excess ABG Hemoglobin Oxyhemoglobin Sodium Potassium Chloride Carbon Dioxide BUN Creatinine Glucose POC Glucose 108 H 114 H 111 H Calcium Phosphorus Magnesium ALT Alkaline Phosphatase Total Creatine Kinase CK-MB (CK-2) Rel Index Troponin T Albumin LDL Cholesterol Direct PTH Intact Salicylates Acetaminophen Crossmatch 04/01/19 04/02/19 04/04/19 18:24 00:36 23:55 WBC RBC Hgb Hct MCV MCH MCHC RDW Plt Count Lymph % (Auto) [place] % (Auto) Eos % (Auto) Baso % (Auto) Lymph # Runnels # Eos # Baso # Seg Neutrophils % Seg Neuts % (Manual) Lymphocytes % (Manual) Eosinophils % (Manual) Seg Neutrophils # Lymphocytes # (Manual) Eosinophils # (Manual) PT INR D-Dimer POC ABG pH POC ABG pCO2 POC ABG pO2 ABG pO2 ABG HCO3 ABG Base Excess ABG Hemoglobin Oxyhemoglobin Sodium Potassium Chloride Carbon Dioxide BUN Creatinine Glucose POC Glucose 113 H 117 H 109 H Calcium Phosphorus Magnesium ALT Alkaline Phosphatase Total Creatine Kinase CK-MB (CK-2) Rel Index Troponin T Albumin LDL Cholesterol Direct PTH Intact Salicylates Acetaminophen Crossmatch 04/06/19 04/06/19 04/06/19 00:11 06:02 23:30 WBC RBC Hgb Hct MCV MCH MCHC RDW Plt Count Lymph % (Auto) [place] % (Auto) Eos % (Auto) Baso % (Auto) Lymph # Runnels # Eos # Baso # Seg Neutrophils % Seg Neuts % (Manual) Lymphocytes % (Manual) Eosinophils % (Manual) Seg Neutrophils # Lymphocytes # (Manual) Eosinophils # (Manual) PT INR D-Dimer POC ABG pH POC ABG pCO2 POC ABG pO2 ABG pO2 ABG HCO3 ABG Base Excess ABG Hemoglobin Oxyhemoglobin Sodium Potassium Chloride Carbon Dioxide BUN Creatinine Glucose POC Glucose 116 H 112 H 112 H Calcium Phosphorus Magnesium ALT Alkaline Phosphatase Total Creatine Kinase CK-MB (CK-2) Rel Index Troponin T Albumin LDL Cholesterol Direct PTH Intact Salicylates Acetaminophen Crossmatch 04/08/19 04/08/19 04/08/19 02:23 06:19 13:01 WBC RBC Hgb Hct MCV MCH MCHC RDW Plt Count Lymph % (Auto) [place] % (Auto) Eos % (Auto) Baso % (Auto) Lymph # Runnels # Eos # Baso # Seg Neutrophils % Seg Neuts % (Manual) Lymphocytes % (Manual) Eosinophils % (Manual) Seg Neutrophils # Lymphocytes # (Manual) Eosinophils # (Manual) PT INR D-Dimer POC ABG pH POC ABG pCO2 POC ABG pO2 ABG pO2 ABG HCO3 ABG Base Excess ABG Hemoglobin Oxyhemoglobin Sodium Potassium Chloride Carbon Dioxide BUN Creatinine Glucose POC Glucose 144 H 126 H 118 H Calcium Phosphorus Magnesium ALT Alkaline Phosphatase Total Creatine Kinase CK-MB (CK-2) Rel Index Troponin T Albumin LDL Cholesterol Direct PTH Intact Salicylates Acetaminophen Crossmatch 04/08/19 04/09/19 04/10/19 23:28 05:52 06:34 WBC RBC Hgb Hct MCV MCH MCHC RDW Plt Count Lymph % (Auto) [place] % (Auto) Eos % (Auto) Baso % (Auto) Lymph # R[place] # Eos # Baso # Seg Neutrophils % Seg Neuts % (Manual) Lymphocytes % (Manual) Eosinophils % (Manual) Seg Neutrophils # Lymphocytes # (Manual) Eosinophils # (Manual) PT INR D-Dimer POC ABG pH POC ABG pCO2 POC ABG pO2 ABG pO2 ABG HCO3 ABG Base Excess ABG Hemoglobin Oxyhemoglobin Sodium Potassium Chloride Carbon Dioxide BUN Creatinine Glucose POC Glucose 119 H 116 H 114 H Calcium Phosphorus Magnesium ALT Alkaline Phosphatase Total Creatine Kinase CK-MB (CK-2) Rel Index Troponin T Albumin LDL Cholesterol Direct PTH Intact Salicylates Acetaminophen Crossmatch 04/10/19 04/10/19 04/11/19 12:34 18:59 00:36 WBC RBC Hgb Hct MCV MCH MCHC RDW Plt Count Lymph % (Auto) [place] % (Auto) Eos % (Auto) Baso % (Auto) Lymph # R[place] # Eos # Baso # Seg Neutrophils % Seg Neuts % (Manual) Lymphocytes % (Manual) Eosinophils % (Manual) Seg Neutrophils # Lymphocytes # (Manual) Eosinophils # (Manual) PT INR D-Dimer POC ABG pH POC ABG pCO2 POC ABG pO2 ABG pO2 ABG HCO3 ABG Base Excess ABG Hemoglobin Oxyhemoglobin Sodium Potassium Chloride Carbon Dioxide BUN Creatinine Glucose POC Glucose 112 H 109 H 124 H Calcium Phosphorus Magnesium ALT Alkaline Phosphatase Total Creatine Kinase CK-MB (CK-2) Rel Index Troponin T Albumin LDL Cholesterol Direct PTH Intact Salicylates Acetaminophen Crossmatch 04/11/19 04/11/19 04/12/19 08:01 17:25 02:18 WBC RBC Hgb Hct MCV MCH MCHC RDW Plt Count Lymph % (Auto) [place] % (Auto) Eos % (Auto) Baso % (Auto) Lymph # R[place] # Eos # Baso # Seg Neutrophils % Seg Neuts % (Manual) Lymphocytes % (Manual) Eosinophils % (Manual) Seg Neutrophils # Lymphocytes # (Manual) Eosinophils # (Manual) PT INR D-Dimer POC ABG pH POC ABG pCO2 POC ABG pO2 ABG pO2 ABG HCO3 ABG Base Excess ABG Hemoglobin Oxyhemoglobin Sodium Potassium Chloride Carbon Dioxide BUN Creatinine Glucose POC Glucose 118 H 106 H 125 H Calcium Phosphorus Magnesium ALT Alkaline Phosphatase Total Creatine Kinase CK-MB (CK-2) Rel Index Troponin T Albumin LDL Cholesterol Direct PTH Intact Salicylates Acetaminophen Crossmatch 04/12/19 04/12/19 04/12/19 06:24 12:22 17:13 WBC RBC Hgb Hct MCV MCH MCHC RDW Plt Count Lymph % (Auto) [place] % (Auto) Eos % (Auto) Baso % (Auto) Lymph # R[place] # Eos # Baso # Seg Neutrophils % Seg Neuts % (Manual) Lymphocytes % (Manual) Eosinophils % (Manual) Seg Neutrophils # Lymphocytes # (Manual) Eosinophils # (Manual) PT INR D-Dimer POC ABG pH POC ABG pCO2 POC ABG pO2 ABG pO2 ABG HCO3 ABG Base Excess ABG Hemoglobin Oxyhemoglobin Sodium Potassium Chloride Carbon Dioxide BUN Creatinine Glucose POC Glucose 128 H 114 H 110 H Calcium Phosphorus Magnesium ALT Alkaline Phosphatase Total Creatine Kinase CK-MB (CK-2) Rel Index Troponin T Albumin LDL Cholesterol Direct PTH Intact Salicylates Acetaminophen Crossmatch 04/13/19 04/13/19 04/13/19 06:59 07:31 07:31 WBC RBC 3.34 L Hgb 8.9 L Hct 28.6 L MCV MCH 27 L MCHC 31 L RDW 19.6 H Plt Count Lymph % (Auto) [place] % (Auto) Eos % (Auto) Baso % (Auto) Lymph # R[place] # Eos # Baso # Seg Neutrophils % Seg Neuts % (Manual) Lymphocytes % (Manual) Eosinophils % (Manual) Seg Neutrophils # Lymphocytes # (Manual) Eosinophils # (Manual) PT INR D-Dimer POC ABG pH POC ABG pCO2 POC ABG pO2 ABG pO2 ABG HCO3 ABG Base Excess ABG Hemoglobin Oxyhemoglobin Sodium Potassium Chloride 96.4 L Carbon Dioxide 33 H BUN 66 H Creatinine 4.5 H Glucose 103 H POC Glucose 107 H Calcium Phosphorus Magnesium ALT Alkaline Phosphatase Total Creatine Kinase CK-MB (CK-2) Rel Index Troponin T Albumin LDL Cholesterol Direct PTH Intact Salicylates Acetaminophen Crossmatch 04/13/19 04/14/19 04/14/19 23:43 05:50 13:07 WBC RBC Hgb Hct MCV MCH MCHC RDW Plt Count Lymph % (Auto) [place] % (Auto) Eos % (Auto) Baso % (Auto) Lymph # R[place] # Eos # Baso # Seg Neutrophils % Seg Neuts % (Manual) Lymphocytes % (Manual) Eosinophils % (Manual) Seg Neutrophils # Lymphocytes # (Manual) Eosinophils # (Manual) PT INR D-Dimer POC ABG pH POC ABG pCO2 POC ABG pO2 ABG pO2 ABG HCO3 ABG Base Excess ABG Hemoglobin Oxyhemoglobin Sodium Potassium Chloride Carbon Dioxide BUN Creatinine Glucose POC Glucose 119 H 112 H 112 H Calcium Phosphorus Magnesium ALT Alkaline Phosphatase Total Creatine Kinase CK-MB (CK-2) Rel Index Troponin T Albumin LDL Cholesterol Direct PTH Intact Salicylates Acetaminophen Crossmatch 04/14/19 04/15/19 04/15/19 18:35 01:18 05:17 WBC RBC Hgb Hct MCV MCH MCHC RDW Plt Count Lymph % (Auto) [place] % (Auto) Eos % (Auto) Baso % (Auto) Lymph # R[place] # Eos # Baso # Seg Neutrophils % Seg Neuts % (Manual) Lymphocytes % (Manual) Eosinophils % (Manual) Seg Neutrophils # Lymphocytes # (Manual) Eosinophils # (Manual) PT INR D-Dimer POC ABG pH POC ABG pCO2 POC ABG pO2 ABG pO2 ABG HCO3 ABG Base Excess ABG Hemoglobin Oxyhemoglobin Sodium Potassium Chloride Carbon Dioxide BUN Creatinine Glucose POC Glucose 114 H 114 H 114 H Calcium Phosphorus Magnesium ALT Alkaline Phosphatase Total Creatine Kinase CK-MB (CK-2) Rel Index Troponin T Albumin LDL Cholesterol Direct PTH Intact Salicylates Acetaminophen Crossmatch 04/15/19 04/15/19 04/16/19 11:50 23:39 05:41 WBC RBC Hgb Hct MCV MCH MCHC RDW Plt Count Lymph % (Auto) [place] % (Auto) Eos % (Auto) Baso % (Auto) Lymph # [place] # Eos # Baso # Seg Neutrophils % Seg Neuts % (Manual) Lymphocytes % (Manual) Eosinophils % (Manual) Seg Neutrophils # Lymphocytes # (Manual) Eosinophils # (Manual) PT INR D-Dimer POC ABG pH POC ABG pCO2 POC ABG pO2 ABG pO2 ABG HCO3 ABG Base Excess ABG Hemoglobin Oxyhemoglobin Sodium Potassium Chloride Carbon Dioxide BUN Creatinine Glucose POC Glucose 109 H 115 H 125 H Calcium Phosphorus Magnesium ALT Alkaline Phosphatase Total Creatine Kinase CK-MB (CK-2) Rel Index Troponin T Albumin LDL Cholesterol Direct PTH Intact Salicylates Acetaminophen Crossmatch 04/16/19 04/17/19 04/17/19 12:53 01:00 12:38 WBC RBC Hgb Hct MCV MCH MCHC RDW Plt Count Lymph % (Auto) [place] % (Auto) Eos % (Auto) Baso % (Auto) Lymph # [place] # Eos # Baso # Seg Neutrophils % Seg Neuts % (Manual) Lymphocytes % (Manual) Eosinophils % (Manual) Seg Neutrophils # Lymphocytes # (Manual) Eosinophils # (Manual) PT INR D-Dimer POC ABG pH POC ABG pCO2 POC ABG pO2 ABG pO2 ABG HCO3 ABG Base Excess ABG Hemoglobin Oxyhemoglobin Sodium Potassium Chloride Carbon Dioxide BUN Creatinine Glucose POC Glucose 121 H 127 H 159 H Calcium Phosphorus Magnesium ALT Alkaline Phosphatase Total Creatine Kinase CK-MB (CK-2) Rel Index Troponin T Albumin LDL Cholesterol Direct PTH Intact Salicylates Acetaminophen Crossmatch 04/17/19 04/17/19 04/18/19 18:27 23:36 07:19 WBC RBC 3.49 L Hgb 9.0 L Hct 29.9 L MCV MCH 26 L MCHC 30 L RDW 20.0 H Plt Count Lymph % (Auto) [place] % (Auto) Eos % (Auto) Baso % (Auto) Lymph # R[place] # Eos # Baso # Seg Neutrophils % Seg Neuts % (Manual) Lymphocytes % (Manual) Eosinophils % (Manual) Seg Neutrophils # Lymphocytes # (Manual) Eosinophils # (Manual) PT INR D-Dimer POC ABG pH POC ABG pCO2 POC ABG pO2 ABG pO2 ABG HCO3 ABG Base Excess ABG Hemoglobin Oxyhemoglobin Sodium Potassium Chloride Carbon Dioxide BUN Creatinine Glucose POC Glucose 109 H 134 H Calcium Phosphorus Magnesium ALT Alkaline Phosphatase Total Creatine Kinase CK-MB (CK-2) Rel Index Troponin T Albumin LDL Cholesterol Direct PTH Intact Salicylates Acetaminophen Crossmatch 04/18/19 04/18/19 04/18/19 07:19 12:16 17:09 WBC RBC Hgb Hct MCV MCH MCHC RDW Plt Count Lymph % (Auto) [place] % (Auto) Eos % (Auto) Baso % (Auto) Lymph # R[place] # Eos # Baso # Seg Neutrophils % Seg Neuts % (Manual) Lymphocytes % (Manual) Eosinophils % (Manual) Seg Neutrophils # Lymphocytes # (Manual) Eosinophils # (Manual) PT INR D-Dimer POC ABG pH POC ABG pCO2 POC ABG pO2 ABG pO2 ABG HCO3 ABG Base Excess ABG Hemoglobin Oxyhemoglobin Sodium Potassium Chloride Carbon Dioxide BUN 41 H Creatinine 2.9 H Glucose 122 H POC Glucose 125 H 131 H Calcium Phosphorus Magnesium ALT Alkaline Phosphatase Total Creatine Kinase CK-MB (CK-2) Rel Index Troponin T Albumin LDL Cholesterol Direct PTH Intact Salicylates Acetaminophen Crossmatch 04/18/19 04/19/19 04/19/19 23:57 05:55 11:35 WBC RBC Hgb Hct MCV MCH MCHC RDW Plt Count Lymph % (Auto) [place] % (Auto) Eos % (Auto) Baso % (Auto) Lymph # R[place] # Eos # Baso # Seg Neutrophils % Seg Neuts % (Manual) Lymphocytes % (Manual) Eosinophils % (Manual) Seg Neutrophils # Lymphocytes # (Manual) Eosinophils # (Manual) PT INR D-Dimer POC ABG pH POC ABG pCO2 POC ABG pO2 ABG pO2 ABG HCO3 ABG Base Excess ABG Hemoglobin Oxyhemoglobin Sodium Potassium Chloride Carbon Dioxide BUN Creatinine Glucose POC Glucose 159 H 144 H 177 H Calcium Phosphorus Magnesium ALT Alkaline Phosphatase Total Creatine Kinase CK-MB (CK-2) Rel Index Troponin T Albumin LDL Cholesterol Direct PTH Intact Salicylates Acetaminophen Crossmatch 04/19/19 04/20/19 04/20/19 16:36 02:05 06:28 WBC RBC Hgb Hct MCV MCH MCHC RDW Plt Count Lymph % (Auto) [place] % (Auto) Eos % (Auto) Baso % (Auto) Lymph # [place] # Eos # Baso # Seg Neutrophils % Seg Neuts % (Manual) Lymphocytes % (Manual) Eosinophils % (Manual) Seg Neutrophils # Lymphocytes # (Manual) Eosinophils # (Manual) PT INR D-Dimer POC ABG pH POC ABG pCO2 POC ABG pO2 ABG pO2 ABG HCO3 ABG Base Excess ABG Hemoglobin Oxyhemoglobin Sodium Potassium Chloride Carbon Dioxide BUN Creatinine Glucose POC Glucose 134 H 142 H 132 H Calcium Phosphorus Magnesium ALT Alkaline Phosphatase Total Creatine Kinase CK-MB (CK-2) Rel Index Troponin T Albumin LDL Cholesterol Direct PTH Intact Salicylates Acetaminophen Crossmatch 04/20/19 04/20/19 04/21/19 12:37 23:34 05:59 WBC RBC Hgb Hct MCV MCH MCHC RDW Plt Count Lymph % (Auto) [place] % (Auto) Eos % (Auto) Baso % (Auto) Lymph # R[place] # Eos # Baso # Seg Neutrophils % Seg Neuts % (Manual) Lymphocytes % (Manual) Eosinophils % (Manual) Seg Neutrophils # Lymphocytes # (Manual) Eosinophils # (Manual) PT INR D-Dimer POC ABG pH POC ABG pCO2 POC ABG pO2 ABG pO2 ABG HCO3 ABG Base Excess ABG Hemoglobin Oxyhemoglobin Sodium Potassium Chloride Carbon Dioxide BUN Creatinine Glucose POC Glucose 163 H 166 H 140 H Calcium Phosphorus Magnesium ALT Alkaline Phosphatase Total Creatine Kinase CK-MB (CK-2) Rel Index Troponin T Albumin LDL Cholesterol Direct PTH Intact Salicylates Acetaminophen Crossmatch 04/21/19 04/21/19 04/21/19 12:07 17:22 23:43 WBC RBC Hgb Hct MCV MCH MCHC RDW Plt Count Lymph % (Auto) [place] % (Auto) Eos % (Auto) Baso % (Auto) Lymph # R[place] # Eos # Baso # Seg Neutrophils % Seg Neuts % (Manual) Lymphocytes % (Manual) Eosinophils % (Manual) Seg Neutrophils # Lymphocytes # (Manual) Eosinophils # (Manual) PT INR D-Dimer POC ABG pH POC ABG pCO2 POC ABG pO2 ABG pO2 ABG HCO3 ABG Base Excess ABG Hemoglobin Oxyhemoglobin Sodium Potassium Chloride Carbon Dioxide BUN Creatinine Glucose POC Glucose 135 H 141 H 138 H Calcium Phosphorus Magnesium ALT Alkaline Phosphatase Total Creatine Kinase CK-MB (CK-2) Rel Index Troponin T Albumin LDL Cholesterol Direct PTH Intact Salicylates Acetaminophen Crossmatch 04/22/19 04/22/19 04/22/19 05:12 18:24 23:49 WBC RBC Hgb Hct MCV MCH MCHC RDW Plt Count Lymph % (Auto) [place] % (Auto) Eos % (Auto) Baso % (Auto) Lymph # R[place] # Eos # Baso # Seg Neutrophils % Seg Neuts % (Manual) Lymphocytes % (Manual) Eosinophils % (Manual) Seg Neutrophils # Lymphocytes # (Manual) Eosinophils # (Manual) PT INR D-Dimer POC ABG pH POC ABG pCO2 POC ABG pO2 ABG pO2 ABG HCO3 ABG Base Excess ABG Hemoglobin Oxyhemoglobin Sodium Potassium Chloride Carbon Dioxide BUN Creatinine Glucose POC Glucose 141 H 137 H 142 H Calcium Phosphorus Magnesium ALT Alkaline Phosphatase Total Creatine Kinase CK-MB (CK-2) Rel Index Troponin T Albumin LDL Cholesterol Direct PTH Intact Salicylates Acetaminophen Crossmatch 04/23/19 04/23/19 04/23/19 05:53 08:13 11:58 WBC RBC Hgb Hct MCV MCH MCHC RDW Plt Count Lymph % (Auto) [place] % (Auto) Eos % (Auto) Baso % (Auto) Lymph # R[place] # Eos # Baso # Seg Neutrophils % Seg Neuts % (Manual) Lymphocytes % (Manual) Eosinophils % (Manual) Seg Neutrophils # Lymphocytes # (Manual) Eosinophils # (Manual) PT INR D-Dimer POC ABG pH POC ABG pCO2 POC ABG pO2 ABG pO2 ABG HCO3 ABG Base Excess ABG Hemoglobin Oxyhemoglobin Sodium Potassium Chloride Carbon Dioxide BUN Creatinine Glucose POC Glucose 132 H 154 H 165 H Calcium Phosphorus Magnesium ALT Alkaline Phosphatase Total Creatine Kinase CK-MB (CK-2) Rel Index Troponin T Albumin LDL Cholesterol Direct PTH Intact Salicylates Acetaminophen Crossmatch 04/23/19 04/24/19 04/24/19 16:28 00:28 07:00 WBC RBC Hgb Hct MCV MCH MCHC RDW Plt Count Lymph % (Auto) [place] % (Auto) Eos % (Auto) Baso % (Auto) Lymph # Runnels # Eos # Baso # Seg Neutrophils % Seg Neuts % (Manual) Lymphocytes % (Manual) Eosinophils % (Manual) Seg Neutrophils # Lymphocytes # (Manual) Eosinophils # (Manual) PT INR D-Dimer POC ABG pH POC ABG pCO2 POC ABG pO2 ABG pO2 ABG HCO3 ABG Base Excess ABG Hemoglobin Oxyhemoglobin Sodium Potassium Chloride Carbon Dioxide BUN Creatinine Glucose POC Glucose 136 H 140 H 141 H Calcium Phosphorus Magnesium ALT Alkaline Phosphatase Total Creatine Kinase CK-MB (CK-2) Rel Index Troponin T Albumin LDL Cholesterol Direct PTH Intact Salicylates Acetaminophen Crossmatch 10/11/0704/24/19 04/25/19 12:38 18:57 00:38 WBC RBC Hgb Hct MCV MCH MCHC RDW Plt Count Lymph % (Auto) [place] % (Auto) Eos % (Auto) Baso % (Auto) Lymph # Runnels # Eos # Baso # Seg Neutrophils % Seg Neuts % (Manual) Lymphocytes % (Manual) Eosinophils % (Manual) Seg Neutrophils # Lymphocytes # (Manual) Eosinophils # (Manual) PT INR D-Dimer POC ABG pH POC ABG pCO2 POC ABG pO2 ABG pO2 ABG HCO3 ABG Base Excess ABG Hemoglobin Oxyhemoglobin Sodium Potassium Chloride Carbon Dioxide BUN Creatinine Glucose POC Glucose 152 H 166 H 128 H Calcium Phosphorus Magnesium ALT Alkaline Phosphatase Total Creatine Kinase CK-MB (CK-2) Rel Index Troponin T Albumin LDL Cholesterol Direct PTH Intact Salicylates Acetaminophen Crossmatch 04/25/19 04/25/19 04/25/19 05:44 13:43 18:34 WBC RBC Hgb Hct MCV MCH MCHC RDW Plt Count Lymph % (Auto) [place] % (Auto) Eos % (Auto) Baso % (Auto) Lymph # Runnels # Eos # Baso # Seg Neutrophils % Seg Neuts % (Manual) Lymphocytes % (Manual) Eosinophils % (Manual) Seg Neutrophils # Lymphocytes # (Manual) Eosinophils # (Manual) PT INR D-Dimer POC ABG pH POC ABG pCO2 POC ABG pO2 ABG pO2 ABG HCO3 ABG Base Excess ABG Hemoglobin Oxyhemoglobin Sodium Potassium Chloride Carbon Dioxide BUN Creatinine Glucose POC Glucose 153 H 186 H 124 H Calcium Phosphorus Magnesium ALT Alkaline Phosphatase Total Creatine Kinase CK-MB (CK-2) Rel Index Troponin T Albumin LDL Cholesterol Direct PTH Intact Salicylates Acetaminophen Crossmatch 04/26/19 04/26/19 04/26/19 00:59 05:52 10:12 WBC 11.5 H RBC 2.84 L Hgb 7.4 L Hct 23.3 L MCV 82 L MCH 26 L MCHC RDW 20.3 H Plt Count Lymph % (Auto) 7.5 L Runnels % (Auto) 7.5 H Eos % (Auto) 5.3 H Baso % (Auto) Lymph # 0.9 L Runnels # 0.9 H Eos # 0.6 H Baso # Seg Neutrophils % 79.2 H Seg Neuts % (Manual) Lymphocytes % (Manual) Eosinophils % (Manual) Seg Neutrophils # 9.1 H Lymphocytes # (Manual) Eosinophils # (Manual) PT INR D-Dimer POC ABG pH POC ABG pCO2 POC ABG pO2 ABG pO2 ABG HCO3 ABG Base Excess ABG Hemoglobin Oxyhemoglobin Sodium Potassium Chloride Carbon Dioxide BUN Creatinine Glucose POC Glucose 163 H 146 H Calcium Phosphorus Magnesium ALT Alkaline Phosphatase Total Creatine Kinase CK-MB (CK-2) Rel Index Troponin T Albumin LDL Cholesterol Direct PTH Intact Salicylates Acetaminophen Crossmatch 04/26/19 04/26/19 04/26/19 10:12 12:15 19:00 WBC RBC Hgb Hct MCV MCH MCHC RDW Plt Count Lymph % (Auto) [place] % (Auto) Eos % (Auto) Baso % (Auto) Lymph # Runnels # Eos # Baso # Seg Neutrophils % Seg Neuts % (Manual) Lymphocytes % (Manual) Eosinophils % (Manual) Seg Neutrophils # Lymphocytes # (Manual) Eosinophils # (Manual) PT INR D-Dimer POC ABG pH POC ABG pCO2 POC ABG pO2 ABG pO2 ABG HCO3 ABG Base Excess ABG Hemoglobin Oxyhemoglobin Sodium 130 L Potassium Chloride 87.4 L Carbon Dioxide BUN 93 H Creatinine 4.2 H Glucose 140 H POC Glucose 155 H 179 H Calcium Phosphorus Magnesium ALT Alkaline Phosphatase Total Creatine Kinase CK-MB (CK-2) Rel Index Troponin T Albumin LDL Cholesterol Direct PTH Intact Salicylates Acetaminophen Crossmatch 04/27/19 04/27/19 04/27/19 00:23 06:34 17:13 WBC RBC Hgb Hct MCV MCH MCHC RDW Plt Count Lymph % (Auto) [place] % (Auto) Eos % (Auto) Baso % (Auto) Lymph # Runnels # Eos # Baso # Seg Neutrophils % Seg Neuts % (Manual) Lymphocytes % (Manual) Eosinophils % (Manual) Seg Neutrophils # Lymphocytes # (Manual) Eosinophils # (Manual) PT INR D-Dimer POC ABG pH POC ABG pCO2 POC ABG pO2 ABG pO2 ABG HCO3 ABG Base Excess ABG Hemoglobin Oxyhemoglobin Sodium Potassium Chloride Carbon Dioxide BUN Creatinine Glucose POC Glucose 158 H 140 H 152 H Calcium Phosphorus Magnesium ALT Alkaline Phosphatase Total Creatine Kinase CK-MB (CK-2) Rel Index Troponin T Albumin LDL Cholesterol Direct PTH Intact Salicylates Acetaminophen Crossmatch 04/27/19 04/28/19 04/28/19 23:50 05:18 11:37 WBC RBC Hgb Hct MCV MCH MCHC RDW Plt Count Lymph % (Auto) [place] % (Auto) Eos % (Auto) Baso % (Auto) Lymph # Runnels # Eos # Baso # Seg Neutrophils % Seg Neuts % (Manual) Lymphocytes % (Manual) Eosinophils % (Manual) Seg Neutrophils # Lymphocytes # (Manual) Eosinophils # (Manual) PT INR D-Dimer POC ABG pH POC ABG pCO2 POC ABG pO2 ABG pO2 ABG HCO3 ABG Base Excess ABG Hemoglobin Oxyhemoglobin Sodium Potassium Chloride Carbon Dioxide BUN Creatinine Glucose POC Glucose 160 H 145 H 177 H Calcium Phosphorus Magnesium ALT Alkaline Phosphatase Total Creatine Kinase CK-MB (CK-2) Rel Index Troponin T Albumin LDL Cholesterol Direct PTH Intact Salicylates Acetaminophen Crossmatch 04/28/19 04/28/19 04/29/19 18:31 23:47 05:50 WBC RBC Hgb Hct MCV MCH MCHC RDW Plt Count Lymph % (Auto) [place] % (Auto) Eos % (Auto) Baso % (Auto) Lymph # Runnels # Eos # Baso # Seg Neutrophils % Seg Neuts % (Manual) Lymphocytes % (Manual) Eosinophils % (Manual) Seg Neutrophils # Lymphocytes # (Manual) Eosinophils # (Manual) PT INR D-Dimer POC ABG pH POC ABG pCO2 POC ABG pO2 ABG pO2 ABG HCO3 ABG Base Excess ABG Hemoglobin Oxyhemoglobin Sodium Potassium Chloride Carbon Dioxide BUN Creatinine Glucose POC Glucose 153 H 117 H 177 H Calcium Phosphorus Magnesium ALT Alkaline Phosphatase Total Creatine Kinase CK-MB (CK-2) Rel Index Troponin T Albumin LDL Cholesterol Direct PTH Intact Salicylates Acetaminophen Crossmatch 04/29/19 04/30/19 04/30/19 17:04 01:02 06:42 WBC RBC Hgb Hct MCV MCH MCHC RDW Plt Count Lymph % (Auto) [place] % (Auto) Eos % (Auto) Baso % (Auto) Lymph # Runnels # Eos # Baso # Seg Neutrophils % Seg Neuts % (Manual) Lymphocytes % (Manual) Eosinophils % (Manual) Seg Neutrophils # Lymphocytes # (Manual) Eosinophils # (Manual) PT INR D-Dimer POC ABG pH POC ABG pCO2 POC ABG pO2 ABG pO2 ABG HCO3 ABG Base Excess ABG Hemoglobin Oxyhemoglobin Sodium Potassium Chloride Carbon Dioxide BUN Creatinine Glucose POC Glucose 205 H 143 H 145 H Calcium Phosphorus Magnesium ALT Alkaline Phosphatase Total Creatine Kinase CK-MB (CK-2) Rel Index Troponin T Albumin LDL Cholesterol Direct PTH Intact Salicylates Acetaminophen Crossmatch 04/30/19 04/30/19 04/30/19 11:31 18:12 23:38 WBC RBC Hgb Hct MCV MCH MCHC RDW Plt Count Lymph % (Auto) [place] % (Auto) Eos % (Auto) Baso % (Auto) Lymph # Runnels # Eos # Baso # Seg Neutrophils % Seg Neuts % (Manual) Lymphocytes % (Manual) Eosinophils % (Manual) Seg Neutrophils # Lymphocytes # (Manual) Eosinophils # (Manual) PT INR D-Dimer POC ABG pH POC ABG pCO2 POC ABG pO2 ABG pO2 ABG HCO3 ABG Base Excess ABG Hemoglobin Oxyhemoglobin Sodium Potassium Chloride Carbon Dioxide BUN Creatinine Glucose POC Glucose 162 H 117 H 139 H Calcium Phosphorus Magnesium ALT Alkaline Phosphatase Total Creatine Kinase CK-MB (CK-2) Rel Index Troponin T Albumin LDL Cholesterol Direct PTH Intact Salicylates Acetaminophen Crossmatch 05/01/19 05/01/19 05/02/19 06:06 23:41 05:59 WBC RBC Hgb Hct MCV MCH MCHC RDW Plt Count Lymph % (Auto) [place] % (Auto) Eos % (Auto) Baso % (Auto) Lymph # [place] # Eos # Baso # Seg Neutrophils % Seg Neuts % (Manual) Lymphocytes % (Manual) Eosinophils % (Manual) Seg Neutrophils # Lymphocytes # (Manual) Eosinophils # (Manual) PT INR D-Dimer POC ABG pH POC ABG pCO2 POC ABG pO2 ABG pO2 ABG HCO3 ABG Base Excess ABG Hemoglobin Oxyhemoglobin Sodium Potassium Chloride Carbon Dioxide BUN Creatinine Glucose POC Glucose 150 H 140 H 130 H Calcium Phosphorus Magnesium ALT Alkaline Phosphatase Total Creatine Kinase CK-MB (CK-2) Rel Index Troponin T Albumin LDL Cholesterol Direct PTH Intact Salicylates Acetaminophen Crossmatch 05/02/19 05/02/19 05/03/19 11:55 18:10 00:15 WBC RBC Hgb Hct MCV MCH MCHC RDW Plt Count Lymph % (Auto) [place] % (Auto) Eos % (Auto) Baso % (Auto) Lymph # [place] # Eos # Baso # Seg Neutrophils % Seg Neuts % (Manual) Lymphocytes % (Manual) Eosinophils % (Manual) Seg Neutrophils # Lymphocytes # (Manual) Eosinophils # (Manual) PT INR D-Dimer POC ABG pH POC ABG pCO2 POC ABG pO2 ABG pO2 ABG HCO3 ABG Base Excess ABG Hemoglobin Oxyhemoglobin Sodium Potassium Chloride Carbon Dioxide BUN Creatinine Glucose POC Glucose 146 H 141 H 145 H Calcium Phosphorus Magnesium ALT Alkaline Phosphatase Total Creatine Kinase CK-MB (CK-2) Rel Index Troponin T Albumin LDL Cholesterol Direct PTH Intact Salicylates Acetaminophen Crossmatch 05/03/19 05/03/19 05/03/19 05:49 05:49 06:01 WBC RBC 2.84 L Hgb 7.2 L Hct 22.9 L MCV 81 L MCH 26 L MCHC RDW 20.6 H Plt Count 456 H Lymph % (Auto) 11.8 L [place] % (Auto) Eos % (Auto) 10.6 H Baso % (Auto) Lymph # 1.1 L [place] # Eos # 1.0 H Baso # Seg Neutrophils % 70.4 H Seg Neuts % (Manual) Lymphocytes % (Manual) Eosinophils % (Manual) Seg Neutrophils # Lymphocytes # (Manual) Eosinophils # (Manual) PT INR D-Dimer POC ABG pH POC ABG pCO2 POC ABG pO2 ABG pO2 ABG HCO3 ABG Base Excess ABG Hemoglobin Oxyhemoglobin Sodium Potassium Chloride 94.8 L Carbon Dioxide BUN 66 H Creatinine 3.6 H Glucose 129 H POC Glucose 135 H Calcium Phosphorus Magnesium ALT Alkaline Phosphatase Total Creatine Kinase CK-MB (CK-2) Rel Index Troponin T Albumin LDL Cholesterol Direct PTH Intact Salicylates Acetaminophen Crossmatch 05/03/19 05/03/19 05/04/19 11:04 18:40 00:06 WBC RBC Hgb Hct MCV MCH MCHC RDW Plt Count Lymph % (Auto) [place] % (Auto) Eos % (Auto) Baso % (Auto) Lymph # [place] # Eos # Baso # Seg Neutrophils % Seg Neuts % (Manual) Lymphocytes % (Manual) Eosinophils % (Manual) Seg Neutrophils # Lymphocytes # (Manual) Eosinophils # (Manual) PT INR D-Dimer POC ABG pH POC ABG pCO2 POC ABG pO2 ABG pO2 ABG HCO3 ABG Base Excess ABG Hemoglobin Oxyhemoglobin Sodium Potassium Chloride Carbon Dioxide BUN Creatinine Glucose POC Glucose 191 H 167 H 137 H Calcium Phosphorus Magnesium ALT Alkaline Phosphatase Total Creatine Kinase CK-MB (CK-2) Rel Index Troponin T Albumin LDL Cholesterol Direct PTH Intact Salicylates Acetaminophen Crossmatch 05/04/19 05/04/19 05/04/19 06:44 07:30 07:30 WBC 15.8 H RBC 2.74 L Hgb 6.7 L Hct 22.2 L MCV 81 L MCH 24 L MCHC 30 L RDW 20.4 H Plt Count 450 H Lymph % (Auto) 5.1 L [place] % (Auto) Eos % (Auto) Baso % (Auto) Lymph # 0.8 L [place] # Eos # 0.6 H Baso # Seg Neutrophils % 86.3 H Seg Neuts % (Manual) Lymphocytes % (Manual) Eosinophils % (Manual) Seg Neutrophils # 13.6 H Lymphocytes # (Manual) Eosinophils # (Manual) PT INR D-Dimer POC ABG pH POC ABG pCO2 POC ABG pO2 ABG pO2 ABG HCO3 ABG Base Excess ABG Hemoglobin Oxyhemoglobin Sodium Potassium Chloride 95.2 L Carbon Dioxide BUN 92 H Creatinine 4.8 H Glucose 139 H POC Glucose 153 H Calcium Phosphorus Magnesium ALT Alkaline Phosphatase Total Creatine Kinase CK-MB (CK-2) Rel Index Troponin T Albumin LDL Cholesterol Direct PTH Intact Salicylates Acetaminophen Crossmatch 05/04/19 05/04/19 05/05/19 12:55 16:31 01:02 WBC RBC Hgb Hct MCV MCH MCHC RDW Plt Count Lymph % (Auto) [place] % (Auto) Eos % (Auto) Baso % (Auto) Lymph # [place] # Eos # Baso # Seg Neutrophils % Seg Neuts % (Manual) Lymphocytes % (Manual) Eosinophils % (Manual) Seg Neutrophils # Lymphocytes # (Manual) Eosinophils # (Manual) PT INR D-Dimer POC ABG pH POC ABG pCO2 POC ABG pO2 ABG pO2 ABG HCO3 ABG Base Excess ABG Hemoglobin Oxyhemoglobin Sodium Potassium Chloride Carbon Dioxide BUN Creatinine Glucose POC Glucose 169 H 171 H Calcium Phosphorus Magnesium ALT Alkaline Phosphatase Total Creatine Kinase CK-MB (CK-2) Rel Index Troponin T Albumin LDL Cholesterol Direct PTH Intact Salicylates Acetaminophen Crossmatch See Detail 05/05/19 05/05/19 05/05/19 05:26 05:36 11:48 WBC 12.6 H RBC 2.73 L Hgb 6.9 L Hct 22.3 L MCV 82 L MCH 25 L MCHC 31 L RDW 21.0 H Plt Count Lymph % (Auto) 8.9 L [place] % (Auto) Eos % (Auto) Baso % (Auto) Lymph # 1.1 L [place] # 0.9 H Eos # Baso # Seg Neutrophils % 80.7 H Seg Neuts % (Manual) Lymphocytes % (Manual) Eosinophils % (Manual) Seg Neutrophils # 10.2 H Lymphocytes # (Manual) Eosinophils # (Manual) PT INR D-Dimer POC ABG pH POC ABG pCO2 POC ABG pO2 ABG pO2 ABG HCO3 ABG Base Excess ABG Hemoglobin Oxyhemoglobin Sodium Potassium Chloride Carbon Dioxide BUN Creatinine Glucose POC Glucose 153 H 173 H Calcium Phosphorus Magnesium ALT Alkaline Phosphatase Total Creatine Kinase CK-MB (CK-2) Rel Index Troponin T Albumin LDL Cholesterol Direct PTH Intact Salicylates Acetaminophen Crossmatch 05/05/19 05/06/19 05/06/19 16:42 02:24 06:12 WBC RBC Hgb Hct MCV MCH MCHC RDW Plt Count Lymph % (Auto) [place] % (Auto) Eos % (Auto) Baso % (Auto) Lymph # [place] # Eos # Baso # Seg Neutrophils % Seg Neuts % (Manual) Lymphocytes % (Manual) Eosinophils % (Manual) Seg Neutrophils # Lymphocytes # (Manual) Eosinophils # (Manual) PT INR D-Dimer POC ABG pH POC ABG pCO2 POC ABG pO2 ABG pO2 ABG HCO3 ABG Base Excess ABG Hemoglobin Oxyhemoglobin Sodium Potassium Chloride Carbon Dioxide BUN Creatinine Glucose POC Glucose 126 H 138 H 151 H Calcium Phosphorus Magnesium ALT Alkaline Phosphatase Total Creatine Kinase CK-MB (CK-2) Rel Index Troponin T Albumin LDL Cholesterol Direct PTH Intact Salicylates Acetaminophen Crossmatch 05/06/19 05/06/19 05/06/19 08:15 16:48 23:16 WBC 11.8 H RBC 2.72 L Hgb 6.7 L Hct 21.7 L MCV 80 L MCH 25 L MCHC 31 L RDW 20.9 H Plt Count Lymph % (Auto) [place] % (Auto) Eos % (Auto) Baso % (Auto) Lymph # [place] # Eos # Baso # Seg Neutrophils % Seg Neuts % (Manual) Lymphocytes % (Manual) Eosinophils % (Manual) Seg Neutrophils # Lymphocytes # (Manual) Eosinophils # (Manual) PT INR D-Dimer POC ABG pH POC ABG pCO2 POC ABG pO2 ABG pO2 ABG HCO3 ABG Base Excess ABG Hemoglobin Oxyhemoglobin Sodium Potassium Chloride Carbon Dioxide BUN Creatinine Glucose POC Glucose 153 H 143 H Calcium Phosphorus Magnesium ALT Alkaline Phosphatase Total Creatine Kinase CK-MB (CK-2) Rel Index Troponin T Albumin LDL Cholesterol Direct PTH Intact Salicylates Acetaminophen Crossmatch 05/07/19 05/07/19 05/07/19 06:00 06:30 12:33 WBC RBC 3.53 L Hgb 9.1 L Hct 28.6 L D MCV 81 L MCH 26 L MCHC RDW 19.1 H Plt Count Lymph % (Auto) 9.6 L [place] % (Auto) Eos % (Auto) 4.8 H Baso % (Auto) Lymph # 1.1 L [place] # Eos # 0.5 H Baso # Seg Neutrophils % 77.8 H Seg Neuts % (Manual) Lymphocytes % (Manual) Eosinophils % (Manual) Seg Neutrophils # 8.6 H Lymphocytes # (Manual) Eosinophils # (Manual) PT INR D-Dimer POC ABG pH POC ABG pCO2 POC ABG pO2 ABG pO2 ABG HCO3 ABG Base Excess ABG Hemoglobin Oxyhemoglobin Sodium Potassium Chloride Carbon Dioxide BUN Creatinine Glucose POC Glucose 122 H 140 H Calcium Phosphorus Magnesium ALT Alkaline Phosphatase Total Creatine Kinase CK-MB (CK-2) Rel Index Troponin T Albumin LDL Cholesterol Direct PTH Intact Salicylates Acetaminophen Crossmatch 05/07/19 05/07/19 05/08/19 16:41 23:55 05:10 WBC 11.6 H RBC 3.54 L Hgb 9.1 L Hct 29.1 L MCV 82 L MCH 26 L MCHC 31 L RDW 19.6 H Plt Count Lymph % (Auto) 6.6 L [place] % (Auto) Eos % (Auto) Baso % (Auto) 1.9 H Lymph # 0.8 L [place] # Eos # Baso # 0.2 H Seg Neutrophils % 82.6 H Seg Neuts % (Manual) Lymphocytes % (Manual) Eosinophils % (Manual) Seg Neutrophils # 9.6 H Lymphocytes # (Manual) Eosinophils # (Manual) PT INR D-Dimer POC ABG pH POC ABG pCO2 POC ABG pO2 ABG pO2 ABG HCO3 ABG Base Excess ABG Hemoglobin Oxyhemoglobin Sodium Potassium Chloride Carbon Dioxide BUN Creatinine Glucose POC Glucose 143 H 153 H Calcium Phosphorus Magnesium ALT Alkaline Phosphatase Total Creatine Kinase CK-MB (CK-2) Rel Index Troponin T Albumin LDL Cholesterol Direct PTH Intact Salicylates Acetaminophen Crossmatch 05/08/19 05/08/19 05/09/19 06:09 16:55 03:27 WBC RBC Hgb Hct MCV MCH MCHC RDW Plt Count Lymph % (Auto) [place] % (Auto) Eos % (Auto) Baso % (Auto) Lymph # [place] # Eos # Baso # Seg Neutrophils % Seg Neuts % (Manual) Lymphocytes % (Manual) Eosinophils % (Manual) Seg Neutrophils # Lymphocytes # (Manual) Eosinophils # (Manual) PT INR D-Dimer POC ABG pH POC ABG pCO2 POC ABG pO2 ABG pO2 ABG HCO3 ABG Base Excess ABG Hemoglobin Oxyhemoglobin Sodium Potassium Chloride Carbon Dioxide BUN Creatinine Glucose POC Glucose 204 H 196 H 175 H Calcium Phosphorus Magnesium ALT Alkaline Phosphatase Total Creatine Kinase CK-MB (CK-2) Rel Index Troponin T Albumin LDL Cholesterol Direct PTH Intact Salicylates Acetaminophen Crossmatch 05/09/19 05/09/19 05/09/19 06:00 11:00 12:41 WBC 12.0 H RBC Hgb 9.7 L Hct 30.2 L MCV 83 L MCH 26 L MCHC RDW 20.1 H Plt Count Lymph % (Auto) 7.4 L [place] % (Auto) 7.6 H Eos % (Auto) Baso % (Auto) Lymph # 0.9 L [place] # 0.9 H Eos # Baso # Seg Neutrophils % 80.7 H Seg Neuts % (Manual) Lymphocytes % (Manual) Eosinophils % (Manual) Seg Neutrophils # 9.7 H Lymphocytes # (Manual) Eosinophils # (Manual) PT INR D-Dimer POC ABG pH POC ABG pCO2 POC ABG pO2 ABG pO2 ABG HCO3 ABG Base Excess ABG Hemoglobin Oxyhemoglobin Sodium Potassium Chloride Carbon Dioxide BUN Creatinine Glucose POC Glucose 172 H 168 H Calcium Phosphorus Magnesium ALT Alkaline Phosphatase Total Creatine Kinase CK-MB (CK-2) Rel Index Troponin T Albumin LDL Cholesterol Direct PTH Intact Salicylates Acetaminophen Crossmatch 05/09/19 05/10/19 05/10/19 17:45 01:26 06:07 WBC RBC Hgb Hct MCV MCH MCHC RDW Plt Count Lymph % (Auto) [place] % (Auto) Eos % (Auto) Baso % (Auto) Lymph # [place] # Eos # Baso # Seg Neutrophils % Seg Neuts % (Manual) Lymphocytes % (Manual) Eosinophils % (Manual) Seg Neutrophils # Lymphocytes # (Manual) Eosinophils # (Manual) PT INR D-Dimer POC ABG pH POC ABG pCO2 POC ABG pO2 ABG pO2 ABG HCO3 ABG Base Excess ABG Hemoglobin Oxyhemoglobin Sodium Potassium Chloride Carbon Dioxide BUN Creatinine Glucose POC Glucose 167 H 174 H 179 H Calcium Phosphorus Magnesium ALT Alkaline Phosphatase Total Creatine Kinase CK-MB (CK-2) Rel Index Troponin T Albumin LDL Cholesterol Direct PTH Intact Salicylates Acetaminophen Crossmatch 05/10/19 05/10/19 05/10/19 06:45 12:31 17:18 WBC RBC Hgb Hct MCV MCH MCHC RDW Plt Count Lymph % (Auto) [place] % (Auto) Eos % (Auto) Baso % (Auto) Lymph # [place] # Eos # Baso # Seg Neutrophils % Seg Neuts % (Manual) Lymphocytes % (Manual) Eosinophils % (Manual) Seg Neutrophils # Lymphocytes # (Manual) Eosinophils # (Manual) PT INR D-Dimer POC ABG pH POC ABG pCO2 POC ABG pO2 ABG pO2 ABG HCO3 ABG Base Excess ABG Hemoglobin Oxyhemoglobin Sodium 134 L Potassium Chloride 90.2 L Carbon Dioxide BUN 82 H Creatinine 4.1 H Glucose 195 H POC Glucose 201 H 197 H Calcium Phosphorus Magnesium ALT Alkaline Phosphatase Total Creatine Kinase CK-MB (CK-2) Rel Index Troponin T Albumin LDL Cholesterol Direct PTH Intact Salicylates Acetaminophen Crossmatch 05/11/19 05/11/19 05/11/19 00:20 06:30 17:38 WBC RBC Hgb Hct MCV MCH MCHC RDW Plt Count Lymph % (Auto) [place] % (Auto) Eos % (Auto) Baso % (Auto) Lymph # [place] # Eos # Baso # Seg Neutrophils % Seg Neuts % (Manual) Lymphocytes % (Manual) Eosinophils % (Manual) Seg Neutrophils # Lymphocytes # (Manual) Eosinophils # (Manual) PT INR D-Dimer POC ABG pH POC ABG pCO2 POC ABG pO2 ABG pO2 ABG HCO3 ABG Base Excess ABG Hemoglobin Oxyhemoglobin Sodium Potassium Chloride Carbon Dioxide BUN Creatinine Glucose POC Glucose 131 H 148 H 198 H Calcium Phosphorus Magnesium ALT Alkaline Phosphatase Total Creatine Kinase CK-MB (CK-2) Rel Index Troponin T Albumin LDL Cholesterol Direct PTH Intact Salicylates Acetaminophen Crossmatch 05/12/19 05/12/19 05/12/19 00:44 06:13 07:15 WBC RBC 3.32 L Hgb 8.7 L Hct 27.8 L MCV MCH 26 L MCHC 31 L RDW 19.8 H Plt Count Lymph % (Auto) 6.9 L [place] % (Auto) Eos % (Auto) 6.5 H Baso % (Auto) Lymph # 0.7 L [place] # Eos # 0.6 H Baso # Seg Neutrophils % 78.6 H Seg Neuts % (Manual) Lymphocytes % (Manual) Eosinophils % (Manual) Seg Neutrophils # 7.8 H Lymphocytes # (Manual) Eosinophils # (Manual) PT INR D-Dimer POC ABG pH POC ABG pCO2 POC ABG pO2 ABG pO2 ABG HCO3 ABG Base Excess ABG Hemoglobin Oxyhemoglobin Sodium Potassium Chloride Carbon Dioxide BUN Creatinine Glucose POC Glucose 170 H 133 H Calcium Phosphorus Magnesium ALT Alkaline Phosphatase Total Creatine Kinase CK-MB (CK-2) Rel Index Troponin T Albumin LDL Cholesterol Direct PTH Intact Salicylates Acetaminophen Crossmatch 05/12/19 05/12/19 05/12/19 07:15 11:17 17:37 WBC RBC Hgb Hct MCV MCH MCHC RDW Plt Count Lymph % (Auto) [place] % (Auto) Eos % (Auto) Baso % (Auto) Lymph # [place] # Eos # Baso # Seg Neutrophils % Seg Neuts % (Manual) Lymphocytes % (Manual) Eosinophils % (Manual) Seg Neutrophils # Lymphocytes # (Manual) Eosinophils # (Manual) PT INR D-Dimer POC ABG pH POC ABG pCO2 POC ABG pO2 ABG pO2 ABG HCO3 ABG Base Excess ABG Hemoglobin Oxyhemoglobin Sodium 135 L Potassium Chloride 94.2 L Carbon Dioxide BUN 59 H Creatinine 3.4 H Glucose 134 H POC Glucose 132 H 165 H Calcium Phosphorus Magnesium ALT Alkaline Phosphatase Total Creatine Kinase CK-MB (CK-2) Rel Index Troponin T Albumin LDL Cholesterol Direct PTH Intact Salicylates Acetaminophen Crossmatch 05/13/19 05/13/19 05/13/19 00:15 05:44 16:00 WBC RBC Hgb Hct MCV MCH MCHC RDW Plt Count Lymph % (Auto) [place] % (Auto) Eos % (Auto) Baso % (Auto) Lymph # [place] # Eos # Baso # Seg Neutrophils % Seg Neuts % (Manual) Lymphocytes % (Manual) Eosinophils % (Manual) Seg Neutrophils # Lymphocytes # (Manual) Eosinophils # (Manual) PT INR D-Dimer POC ABG pH POC ABG pCO2 POC ABG pO2 ABG pO2 ABG HCO3 ABG Base Excess ABG Hemoglobin Oxyhemoglobin Sodium Potassium Chloride Carbon Dioxide BUN Creatinine Glucose POC Glucose 144 H 133 H 221 H Calcium Phosphorus Magnesium ALT Alkaline Phosphatase Total Creatine Kinase CK-MB (CK-2) Rel Index Troponin T Albumin LDL Cholesterol Direct PTH Intact Salicylates Acetaminophen Crossmatch 05/14/19 05/14/19 05/14/19 06:44 11:56 16:42 WBC RBC Hgb Hct MCV MCH MCHC RDW Plt Count Lymph % (Auto) [place] % (Auto) Eos % (Auto) Baso % (Auto) Lymph # [place] # Eos # Baso # Seg Neutrophils % Seg Neuts % (Manual) Lymphocytes % (Manual) Eosinophils % (Manual) Seg Neutrophils # Lymphocytes # (Manual) Eosinophils # (Manual) PT INR D-Dimer POC ABG pH POC ABG pCO2 POC ABG pO2 ABG pO2 ABG HCO3 ABG Base Excess ABG Hemoglobin Oxyhemoglobin Sodium Potassium Chloride Carbon Dioxide BUN Creatinine Glucose POC Glucose 187 H 141 H 183 H Calcium Phosphorus Magnesium ALT Alkaline Phosphatase Total Creatine Kinase CK-MB (CK-2) Rel Index Troponin T Albumin LDL Cholesterol Direct PTH Intact Salicylates Acetaminophen Crossmatch 05/15/19 05/15/19 05/15/19 00:11 05:55 18:46 WBC RBC Hgb Hct MCV MCH MCHC RDW Plt Count Lymph % (Auto) [place] % (Auto) Eos % (Auto) Baso % (Auto) Lymph # [place] # Eos # Baso # Seg Neutrophils % Seg Neuts % (Manual) Lymphocytes % (Manual) Eosinophils % (Manual) Seg Neutrophils # Lymphocytes # (Manual) Eosinophils # (Manual) PT INR D-Dimer POC ABG pH POC ABG pCO2 POC ABG pO2 ABG pO2 ABG HCO3 ABG Base Excess ABG Hemoglobin Oxyhemoglobin Sodium Potassium Chloride Carbon Dioxide BUN Creatinine Glucose POC Glucose 169 H 119 H 173 H Calcium Phosphorus Magnesium ALT Alkaline Phosphatase Total Creatine Kinase CK-MB (CK-2) Rel Index Troponin T Albumin LDL Cholesterol Direct PTH Intact Salicylates Acetaminophen Crossmatch 05/16/19 05/16/19 05/16/19 00:18 06:17 12:47 WBC RBC Hgb Hct MCV MCH MCHC RDW Plt Count Lymph % (Auto) [place] % (Auto) Eos % (Auto) Baso % (Auto) Lymph # [place] # Eos # Baso # Seg Neutrophils % Seg Neuts % (Manual) Lymphocytes % (Manual) Eosinophils % (Manual) Seg Neutrophils # Lymphocytes # (Manual) Eosinophils # (Manual) PT INR D-Dimer POC ABG pH POC ABG pCO2 POC ABG pO2 ABG pO2 ABG HCO3 ABG Base Excess ABG Hemoglobin Oxyhemoglobin Sodium Potassium Chloride Carbon Dioxide BUN Creatinine Glucose POC Glucose 201 H 149 H 207 H Calcium Phosphorus Magnesium ALT Alkaline Phosphatase Total Creatine Kinase CK-MB (CK-2) Rel Index Troponin T Albumin LDL Cholesterol Direct PTH Intact Salicylates Acetaminophen Crossmatch 05/16/19 05/17/19 05/17/19 17:48 00:01 06:26 WBC RBC Hgb Hct MCV MCH MCHC RDW Plt Count Lymph % (Auto) [place] % (Auto) Eos % (Auto) Baso % (Auto) Lymph # [place] # Eos # Baso # Seg Neutrophils % Seg Neuts % (Manual) Lymphocytes % (Manual) Eosinophils % (Manual) Seg Neutrophils # Lymphocytes # (Manual) Eosinophils # (Manual) PT INR D-Dimer POC ABG pH POC ABG pCO2 POC ABG pO2 ABG pO2 ABG HCO3 ABG Base Excess ABG Hemoglobin Oxyhemoglobin Sodium Potassium Chloride Carbon Dioxide BUN Creatinine Glucose POC Glucose 183 H 176 H 177 H Calcium Phosphorus Magnesium ALT Alkaline Phosphatase Total Creatine Kinase CK-MB (CK-2) Rel Index Troponin T Albumin LDL Cholesterol Direct PTH Intact Salicylates Acetaminophen Crossmatch 05/17/19 05/17/19 05/18/19 12:19 17:45 00:30 WBC RBC Hgb Hct MCV MCH MCHC RDW Plt Count Lymph % (Auto) [place] % (Auto) Eos % (Auto) Baso % (Auto) Lymph # [place] # Eos # Baso # Seg Neutrophils % Seg Neuts % (Manual) Lymphocytes % (Manual) Eosinophils % (Manual) Seg Neutrophils # Lymphocytes # (Manual) Eosinophils # (Manual) PT INR D-Dimer POC ABG pH POC ABG pCO2 POC ABG pO2 ABG pO2 ABG HCO3 ABG Base Excess ABG Hemoglobin Oxyhemoglobin Sodium Potassium Chloride Carbon Dioxide BUN Creatinine Glucose POC Glucose 174 H 171 H 181 H Calcium Phosphorus Magnesium ALT Alkaline Phosphatase Total Creatine Kinase CK-MB (CK-2) Rel Index Troponin T Albumin LDL Cholesterol Direct PTH Intact Salicylates Acetaminophen Crossmatch 05/18/19 05/18/19 05/19/19 06:18 16:53 00:19 WBC RBC Hgb Hct MCV MCH MCHC RDW Plt Count Lymph % (Auto) [place] % (Auto) Eos % (Auto) Baso % (Auto) Lymph # [place] # Eos # Baso # Seg Neutrophils % Seg Neuts % (Manual) Lymphocytes % (Manual) Eosinophils % (Manual) Seg Neutrophils # Lymphocytes # (Manual) Eosinophils # (Manual) PT INR D-Dimer POC ABG pH POC ABG pCO2 POC ABG pO2 ABG pO2 ABG HCO3 ABG Base Excess ABG Hemoglobin Oxyhemoglobin Sodium Potassium Chloride Carbon Dioxide BUN Creatinine Glucose POC Glucose 165 H 166 H 207 H Calcium Phosphorus Magnesium ALT Alkaline Phosphatase Total Creatine Kinase CK-MB (CK-2) Rel Index Troponin T Albumin LDL Cholesterol Direct PTH Intact Salicylates Acetaminophen Crossmatch 05/19/19 05/19/19 05/19/19 01:00 01:00 05:15 WBC 11.6 H RBC 3.12 L Hgb 7.9 L Hct 25.9 L MCV 83 L MCH 25 L MCHC 31 L RDW 21.1 H Plt Count Lymph % (Auto) [place] % (Auto) Eos % (Auto) Baso % (Auto) Lymph # [place] # Eos # Baso # Seg Neutrophils % Seg Neuts % (Manual) Lymphocytes % (Manual) Eosinophils % (Manual) Seg Neutrophils # Lymphocytes # (Manual) Eosinophils # (Manual) PT INR D-Dimer POC ABG pH POC ABG pCO2 POC ABG pO2 ABG pO2 ABG HCO3 ABG Base Excess ABG Hemoglobin Oxyhemoglobin Sodium 135 L Potassium Chloride 93.6 L Carbon Dioxide BUN 64 H Creatinine 2.8 H Glucose 194 H POC Glucose 176 H Calcium Phosphorus Magnesium ALT Alkaline Phosphatase Total Creatine Kinase CK-MB (CK-2) Rel Index Troponin T Albumin LDL Cholesterol Direct PTH Intact Salicylates Acetaminophen Crossmatch 05/19/19 05/19/19 05/20/19 11:21 18:48 00:01 WBC RBC Hgb Hct MCV MCH MCHC RDW Plt Count Lymph % (Auto) [place] % (Auto) Eos % (Auto) Baso % (Auto) Lymph # [place] # Eos # Baso # Seg Neutrophils % Seg Neuts % (Manual) Lymphocytes % (Manual) Eosinophils % (Manual) Seg Neutrophils # Lymphocytes # (Manual) Eosinophils # (Manual) PT INR D-Dimer POC ABG pH POC ABG pCO2 POC ABG pO2 ABG pO2 ABG HCO3 ABG Base Excess ABG Hemoglobin Oxyhemoglobin Sodium Potassium Chloride Carbon Dioxide BUN Creatinine Glucose POC Glucose 162 H 140 H 200 H Calcium Phosphorus Magnesium ALT Alkaline Phosphatase Total Creatine Kinase CK-MB (CK-2) Rel Index Troponin T Albumin LDL Cholesterol Direct PTH Intact Salicylates Acetaminophen Crossmatch 05/20/19 05/20/19 05/21/19 05:58 17:50 00:43 WBC RBC Hgb Hct MCV MCH MCHC RDW Plt Count Lymph % (Auto) [place] % (Auto) Eos % (Auto) Baso % (Auto) Lymph # [place] # Eos # Baso # Seg Neutrophils % Seg Neuts % (Manual) Lymphocytes % (Manual) Eosinophils % (Manual) Seg Neutrophils # Lymphocytes # (Manual) Eosinophils # (Manual) PT INR D-Dimer POC ABG pH POC ABG pCO2 POC ABG pO2 ABG pO2 ABG HCO3 ABG Base Excess ABG Hemoglobin Oxyhemoglobin Sodium Potassium Chloride Carbon Dioxide BUN Creatinine Glucose POC Glucose 132 H 154 H 165 H Calcium Phosphorus Magnesium ALT Alkaline Phosphatase Total Creatine Kinase CK-MB (CK-2) Rel Index Troponin T Albumin LDL Cholesterol Direct PTH Intact Salicylates Acetaminophen Crossmatch 05/21/19 05/21/19 05/21/19 06:06 11:15 17:04 WBC RBC Hgb Hct MCV MCH MCHC RDW Plt Count Lymph % (Auto) [place] % (Auto) Eos % (Auto) Baso % (Auto) Lymph # [place] # Eos # Baso # Seg Neutrophils % Seg Neuts % (Manual) Lymphocytes % (Manual) Eosinophils % (Manual) Seg Neutrophils # Lymphocytes # (Manual) Eosinophils # (Manual) PT INR D-Dimer POC ABG pH POC ABG pCO2 POC ABG pO2 ABG pO2 ABG HCO3 ABG Base Excess ABG Hemoglobin Oxyhemoglobin Sodium Potassium Chloride Carbon Dioxide BUN Creatinine Glucose POC Glucose 178 H 218 H 135 H Calcium Phosphorus Magnesium ALT Alkaline Phosphatase Total Creatine Kinase CK-MB (CK-2) Rel Index Troponin T Albumin LDL Cholesterol Direct PTH Intact Salicylates Acetaminophen Crossmatch 05/21/19 05/22/19 05/22/19 23:25 06:09 18:32 WBC RBC Hgb Hct MCV MCH MCHC RDW Plt Count Lymph % (Auto) [place] % (Auto) Eos % (Auto) Baso % (Auto) Lymph # R[place] # Eos # Baso # Seg Neutrophils % Seg Neuts % (Manual) Lymphocytes % (Manual) Eosinophils % (Manual) Seg Neutrophils # Lymphocytes # (Manual) Eosinophils # (Manual) PT INR D-Dimer POC ABG pH POC ABG pCO2 POC ABG pO2 ABG pO2 ABG HCO3 ABG Base Excess ABG Hemoglobin Oxyhemoglobin Sodium Potassium Chloride Carbon Dioxide BUN Creatinine Glucose POC Glucose 221 H 140 H 216 H Calcium Phosphorus Magnesium ALT Alkaline Phosphatase Total Creatine Kinase CK-MB (CK-2) Rel Index Troponin T Albumin LDL Cholesterol Direct PTH Intact Salicylates Acetaminophen Crossmatch 05/22/19 05/23/19 05/23/19 23:56 05:23 12:46 WBC RBC Hgb Hct MCV MCH MCHC RDW Plt Count Lymph % (Auto) [place] % (Auto) Eos % (Auto) Baso % (Auto) Lymph # R[place] # Eos # Baso # Seg Neutrophils % Seg Neuts % (Manual) Lymphocytes % (Manual) Eosinophils % (Manual) Seg Neutrophils # Lymphocytes # (Manual) Eosinophils # (Manual) PT INR D-Dimer POC ABG pH POC ABG pCO2 POC ABG pO2 ABG pO2 ABG HCO3 ABG Base Excess ABG Hemoglobin Oxyhemoglobin Sodium Potassium Chloride Carbon Dioxide BUN Creatinine Glucose POC Glucose 177 H 188 H 165 H Calcium Phosphorus Magnesium ALT Alkaline Phosphatase Total Creatine Kinase CK-MB (CK-2) Rel Index Troponin T Albumin LDL Cholesterol Direct PTH Intact Salicylates Acetaminophen Crossmatch 05/23/19 05/24/19 05/24/19 17:36 00:06 06:51 WBC RBC Hgb Hct MCV MCH MCHC RDW Plt Count Lymph % (Auto) [place] % (Auto) Eos % (Auto) Baso % (Auto) Lymph # R[place] # Eos # Baso # Seg Neutrophils % Seg Neuts % (Manual) Lymphocytes % (Manual) Eosinophils % (Manual) Seg Neutrophils # Lymphocytes # (Manual) Eosinophils # (Manual) PT INR D-Dimer POC ABG pH POC ABG pCO2 POC ABG pO2 ABG pO2 ABG HCO3 ABG Base Excess ABG Hemoglobin Oxyhemoglobin Sodium Potassium Chloride Carbon Dioxide BUN Creatinine Glucose POC Glucose 204 H 155 H 169 H Calcium Phosphorus Magnesium ALT Alkaline Phosphatase Total Creatine Kinase CK-MB (CK-2) Rel Index Troponin T Albumin LDL Cholesterol Direct PTH Intact Salicylates Acetaminophen Crossmatch 05/24/19 05/24/19 05/25/19 11:33 17:47 00:03 WBC RBC Hgb Hct MCV MCH MCHC RDW Plt Count Lymph % (Auto) [place] % (Auto) Eos % (Auto) Baso % (Auto) Lymph # [place] # Eos # Baso # Seg Neutrophils % Seg Neuts % (Manual) Lymphocytes % (Manual) Eosinophils % (Manual) Seg Neutrophils # Lymphocytes # (Manual) Eosinophils # (Manual) PT INR D-Dimer POC ABG pH POC ABG pCO2 POC ABG pO2 ABG pO2 ABG HCO3 ABG Base Excess ABG Hemoglobin Oxyhemoglobin Sodium Potassium Chloride Carbon Dioxide BUN Creatinine Glucose POC Glucose 158 H 120 H 142 H Calcium Phosphorus Magnesium ALT Alkaline Phosphatase Total Creatine Kinase CK-MB (CK-2) Rel Index Troponin T Albumin LDL Cholesterol Direct PTH Intact Salicylates Acetaminophen Crossmatch 05/25/19 05/25/19 05/25/19 05:34 14:37 17:34 WBC RBC Hgb Hct MCV MCH MCHC RDW Plt Count Lymph % (Auto) [place] % (Auto) Eos % (Auto) Baso % (Auto) Lymph # [place] # Eos # Baso # Seg Neutrophils % Seg Neuts % (Manual) Lymphocytes % (Manual) Eosinophils % (Manual) Seg Neutrophils # Lymphocytes # (Manual) Eosinophils # (Manual) PT INR D-Dimer POC ABG pH POC ABG pCO2 POC ABG pO2 ABG pO2 ABG HCO3 ABG Base Excess ABG Hemoglobin Oxyhemoglobin Sodium Potassium Chloride Carbon Dioxide BUN Creatinine Glucose POC Glucose 128 H 199 H 185 H Calcium Phosphorus Magnesium ALT Alkaline Phosphatase Total Creatine Kinase CK-MB (CK-2) Rel Index Troponin T Albumin LDL Cholesterol Direct PTH Intact Salicylates Acetaminophen Crossmatch 05/26/19 05/26/19 05/26/19 06:21 11:39 17:47 WBC RBC Hgb Hct MCV MCH MCHC RDW Plt Count Lymph % (Auto) Runn[place] % (Auto) Eos % (Auto) Baso % (Auto) Lymph # Runnels # Eos # Baso # Seg Neutrophils % Seg Neuts % (Manual) Lymphocytes % (Manual) Eosinophils % (Manual) Seg Neutrophils # Lymphocytes # (Manual) Eosinophils # (Manual) PT INR D-Dimer POC ABG pH POC ABG pCO2 POC ABG pO2 ABG pO2 ABG HCO3 ABG Base Excess ABG Hemoglobin Oxyhemoglobin Sodium Potassium Chloride Carbon Dioxide BUN Creatinine Glucose POC Glucose 110 H 129 H 177 H Calcium Phosphorus Magnesium ALT Alkaline Phosphatase Total Creatine Kinase CK-MB (CK-2) Rel Index Troponin T Albumin LDL Cholesterol Direct PTH Intact Salicylates Acetaminophen Crossmatch 05/27/19 05/27/19 05/27/19 00:02 06:40 13:41 WBC RBC Hgb Hct MCV MCH MCHC RDW Plt Count Lymph % (Auto) [place] % (Auto) Eos % (Auto) Baso % (Auto) Lymph # Runn[place] # Eos # Baso # Seg Neutrophils % Seg Neuts % (Manual) Lymphocytes % (Manual) Eosinophils % (Manual) Seg Neutrophils # Lymphocytes # (Manual) Eosinophils # (Manual) PT INR D-Dimer POC ABG pH POC ABG pCO2 POC ABG pO2 ABG pO2 ABG HCO3 ABG Base Excess ABG Hemoglobin Oxyhemoglobin Sodium Potassium Chloride Carbon Dioxide BUN Creatinine Glucose POC Glucose 142 H 186 H 208 H Calcium Phosphorus Magnesium ALT Alkaline Phosphatase Total Creatine Kinase CK-MB (CK-2) Rel Index Troponin T Albumin LDL Cholesterol Direct PTH Intact Salicylates Acetaminophen Crossmatch
--- NOTE | 2019-05-27 15:04 | Progress Note ---
Assessment and Plan Cultures: Blood cultures 12/26/2018 no growth today. Blood cultures 01/01/2019 no growth today. Wound cultures 01/02/2019 ESBL Kleb, MDR Ecoli and E raffinosus resistant to penicillin. 03/14 Sputum Cx: MDR Acinetobacter 03/14 BCx: NGTD 03/17 Sputum CX: MDR Acinetobacter 05/19 sputum Cx - unfit for culture Assessment: 63 y/o male with history of ESRD on HD, HTN, CAD S/P CABG, CVA, DM, Atrial Fib, Anemia, Hyperparathyroidism, Hypocalcemia, schizophrenia; well known to ID service from previous admissions, most recently on 12/26/2018 due to sepsis from unstagable necrotic sacral decubitus s/p OR on 01/01/2019 for open excisional debridement of necrotic sacral wound with ESBL Kleb, MDR Ecoli, treated with Meropenem 1 gm IV every 24 hours via tunneled catheter and Vancomycin 1 gm post HD Saturday, and Saturday for 6 weeks ending 02-16-19; readmitted: 1. Sepsis: again with fevers and leukocytosis, tachycardia. Would assume repeat tracheitis. Obtain sputum cultures. Given his history of MDR I would avoid empiric antibiotics as we have so few options left. Will give targeted antibiotics pending sputum results. Strongly need to consider hospice. 2. Hypoxic respiratory failure - per pulmonary. off vent. Capping trials 3. DM2 4. Left 5th finger pressure ulcer: not infected 5. Sacral stage IV ulcer s/p extensive treatment - NOT infected currently; treated with Meropenem 1 gm IV every 24 hours via tunneled catheter and Vancomycin 1 gm post HD Saturday, and Saturday for 6 weeks ending 02-16-19 6. ESRD on HD Recommendations: - sputum cultures with >10 epithelial cells. had a low grade temperature. Given his co-morbidities this may continue to recur. If persistent fevers please obtain repeat sputum cultures - Would not start antibiotics in the absence of culture data. Fevers have not recurred. - contact precautions - consider hospice, he will continue to develop worsening resistance and we will exhaust all therapeutic options for Acinetobacter very quicky. Will follow. Sherman Shirley MD [facility] M: [phone] O: [phone] F: [phone] Subjective Date of service: 05/27/19 Principal diagnosis: Respiratory failure, acute on chronic systolic HF, ESRD Interval history: No acute change at present. Objective - Exam Narrative Exam: Constitutional: Alert, cooperative. No acute distress Neck: Supple, no meningeal signs. Trach in place. Oral: dentition fair, no thrush Cardiovascular: S1, S2 normal. Respiratory: Good air entry, clear to auscultation bilaterally GI: Soft, non-tender; bowel sounds normal. No peritoneal signs. Musculoskeletal: No pedal edema, no cyanosis. Skin: No rash or abscess Neurological: Awake, trached. No gross abnormality - Constitutional Vitals: Vital Signs Temp Pulse Resp BP Pulse Ox 98.3 F 103 H 18 104/60 100 05/27/19 12:30 05/27/19 14:45 05/27/19 14:45 05/27/19 12:30 05/27/19 10:00 Temperature -Last 24 Hours Temperature 98.3 F Temperature 98.3 F Temperature 98.3 F Temperature 98.2 F Temperature 98.0 F - Labs CBC & Chem 7: 05/19/19 01:00 05/19/19 01:00 Labs: Abnormal lab results 05/26/19 05/27/19 05/27/19 Range/Units 17:47 00:02 06:40 POC Glucose 177 H 142 H 186 H (70-105) 05/27/19 Range/Units 13:41 POC Glucose 208 H (70-105)
--- NOTE | 2019-05-27 15:29 | Progress Note ---
Assessment and Plan Assessment and plan: Patient is a 63-year-old -Portuguese man from [facility] with a plethora of co-morbidities including blindness, CVA, CHF, PPM/ICD, loop recorder since 2012 that is MRI compatible, IDDM type 2, sepsis left foot ulcer, afib, ESRD with complications on HD TTS, hypertension, AOCD and GERD who presented to the ED with hypotensive after intubation in the emergency room. Still intubated, diagnosed with fluid overload, pleural effusion. Patient has had recurrent admission in the hospital for similar reason and was recently discharged from the hospital following treatment of Severe Sepsis due to Necrotizing Unstagable sacral decubitus ulcer with ostemomylitis, expected to complete abx on discharg e till 02/16/19. Trach and peg done HR control improved with change in BB. Acute respiratory failure on mechanical ventilator >96 hrs Trach placed on 03/03/19 Pulm consult appreciated weaning trial VAP BUNDLE ASPIRATION BUNDLE Continue T-piece Finished therapy for Acinetobacter Acute pulmonary edema, fluid overload on CXR repeat xray intermittently Dialysis Necrotizing Unstagable sacral decubitus ulcer with ostemomyelitis Wound care, Dilated CMP Cardiomyiopathy EF 35-40% Continue diuresis PPM/ICD Acute encephalopathy, probably metabolic or toxic Continues on Mechanical ventilator. ESRD on hemodialysis nephrology following Vascular eval. done re: LUE AV graft, see note Bilateral pleural effusions Anticipate improvement with Permanent atrial fibrillation and flutter Not on anticoagulation because of anemia thrombocytopenia Change noted to BB agent to IV. 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 -Pt is s/p x1 DDVAP RUL atelectasis, nebs as needed DVT prophylaxis Lovenox DNR poor prognosis Disposition: Awaiting on SNF HD setup I spoke with his nephrew Jennifer Mims, Director of our Lab History Interval history: Patient was seen and examined. Follow-up on current diagnosis. No overnight events reported to me. Patient is mainly nonverbal. Imaging, nursing note, chart, labs and old chart reviewed. Hospitalist Physical - Physical exam Narrative exam: Gen: severely disable, nad, awake alert x 1 HEENT: NCAT, EOMI, PERRL, OP Clear Neck: supple, trach CVS/Heart: irreg irregular, normal S1S2, pulses present bilaterally Chest/Lungs: diminished bs ymmetrical chest expansion, good air entry bilaterally GI/Abdomen:peg, colostomy present, good bowel sounds, no guarding or rebound /Bladder: no suprapubic tenderness, no CVA or paraspinal tenderness Extermity/Skin: no c/c/e, no obvious rash MSK: no FROM x 4 Neuro: CN 2-12 grossly intact except vision, no new focal deficits Psych: calm - Constitutional Vitals: Temp Pulse Resp BP Pulse Ox 98.3 F 103 H 18 104/60 100 05/27/19 12:30 05/27/19 14:45 05/27/19 14:45 05/27/19 12:30 05/27/19 15:10 General appearance: Present: no acute distress, other (T peace). Absent: well- nourished Results - Labs CBC & Chem 7: 05/19/19 01:00 05/19/19 01:00 Labs: Laboratory Last Values WBC 11.6 K/mm3 (4.5-11.0) H 05/19/19 01:00 RBC 3.12 M/mm3 (3.65-5.03) L 05/19/19 01:00 Hgb 7.9 gm/dl (11.8-15.2) L 05/19/19 01:00 Hct 25.9 % (35.5-45.6) L 05/19/19 01:00 MCV 83 fl (84-94) L 05/19/19 01:00 MCH 25 pg (28-32) L 05/19/19 01:00 MCHC 31 % (32-34) L 05/19/19 01:00 RDW 21.1 % (13.2-15.2) H 05/19/19 01:00 Plt Count 386 K/mm3 (140-440) 05/19/19 01:00 Lymph % (Auto) 6.9 % (13.4-35.0) L 05/12/19 07:15 [place] % (Auto) 7.3 % (0.0-7.3) 05/12/19 07:15 Eos % (Auto) 6.5 % (0.0-4.3) H 05/12/19 07:15 Baso % (Auto) 0.7 % (0.0-1.8) 05/12/19 07:15 Lymph # 0.7 K/mm3 (1.2-5.4) L 05/12/19 07:15 [place] # 0.7 K/mm3 (0.0-0.8) 05/12/19 07:15 Eos # 0.6 K/mm3 (0.0-0.4) H 05/12/19 07:15 Baso # 0.1 K/mm3 (0.0-0.1) 05/12/19 07:15 Add Manual Diff Complete 03/21/19 06:30 Total Counted 100 03/21/19 06:30 Seg Neutrophils % 78.6 % (40.0-70.0) H 05/12/19 07:15 Seg Neuts % (Manual) 81.0 % (40.0-70.0) H 03/21/19 06:30 Band Neutrophils % 0 % 03/21/19 06:30 Lymphocytes % (Manual) 8.0 % (13.4-35.0) L 03/21/19 06:30 Reactive Lymphs % (Man) 0 % 03/21/19 06:30 Monocytes % (Manual) 1.0 % (0.0-7.3) 03/21/19 06:30 Eosinophils % (Manual) 8.0 % (0.0-4.3) H 03/21/19 06:30 Basophils % (Manual) 1.0 % (0.0-1.8) 03/21/19 06:30 Metamyelocytes % 1.0 % 03/21/19 06:30 Myelocytes % 0 % 03/21/19 06:30 Promyelocytes % 0 % 03/21/19 06:30 Blast Cells % 0 % 03/21/19 06:30 Nucleated RBC % Not Reportable 03/21/19 06:30 Seg Neutrophils # 7.8 K/mm3 (1.8-7.7) H 05/12/19 07:15 Seg Neutrophils # Man 6.7 K/mm3 (1.8-7.7) 03/21/19 06:30 Band Neutrophils # 0.0 K/mm3 03/21/19 06:30 Lymphocytes # (Manual) 0.7 K/mm3 (1.2-5.4) L 03/21/19 06:30 Abs React Lymphs (Man) 0.0 K/mm3 03/21/19 06:30 Monocytes # (Manual) 0.1 K/mm3 (0.0-0.8) 03/21/19 06:30 Eosinophils # (Manual) 0.7 K/mm3 (0.0-0.4) H 03/21/19 06:30 Basophils # (Manual) 0.1 K/mm3 (0.0-0.1) 03/21/19 06:30 Metamyelocytes # 0.1 K/mm3 03/21/19 06:30 Myelocytes # 0.0 K/mm3 03/21/19 06:30 Promyelocytes # 0.0 K/mm3 03/21/19 06:30 Blast Cells # 0.0 K/mm3 03/21/19 06:30 WBC Morphology Not Reportable 03/21/19 06:30 Hypersegmented Neuts Not Reportable 03/21/19 06:30 Hyposegmented Neuts Not Reportable 03/21/19 06:30 Hypogranular Neuts Not Reportable 03/21/19 06:30 Smudge Cells Not Reportable 03/21/19 06:30 Toxic Granulation Not Reportable 03/21/19 06:30 Toxic Vacuolation Not Reportable 03/21/19 06:30 Dohle Bodies Not Reportable 03/21/19 06:30 Pelger-Huet Anomaly Not Reportable 03/21/19 06:30 Tramaine Rods Not Reportable 03/21/19 06:30 Platelet Estimate Consistent w auto 03/21/19 06:30 Clumped Platelets Not Reportable 03/21/19 06:30 Plt Clumps, EDTA Not Reportable 03/21/19 06:30 Large Platelets Not Reportable 03/21/19 06:30 Giant Platelets Not Reportable 03/21/19 06:30 Platelet Satelliting Not Reportable 03/21/19 06:30 Plt Morphology Comment Not Reportable 03/21/19 06:30 RBC Morphology Not Reportable 03/21/19 06:30 Dimorphic RBCs Not Reportable 03/21/19 06:30 Polychromasia Not Reportable 03/21/19 06:30 Hypochromasia Few 03/21/19 06:30 Poikilocytosis Few 03/21/19 06:30 Anisocytosis Few 03/21/19 06:30 Microcytosis Not Reportable 03/21/19 06:30 Macrocytosis Not Reportable 03/21/19 06:30 Spherocytes Not Reportable 03/21/19 06:30 Pappenheimer Bodies Not Reportable 03/21/19 06:30 Sickle Cells Not Reportable 03/21/19 06:30 Target Cells 1+ 03/21/19 06:30 Tear Drop Cells Not Reportable 03/21/19 06:30 Ovalocytes Few 03/21/19 06:30 Helmet Cells Not Reportable 03/21/19 06:30 [place] Bodies Not Reportable 03/21/19 06:30 Catlett Rings Not Reportable 03/21/19 06:30 [place] Cells Not Reportable 03/21/19 06:30 Bite Cells Not Reportable 03/21/19 06:30 Crenated Cell Not Reportable 03/21/19 06:30 Elliptocytes Not Reportable 03/21/19 06:30 Acanthocytes (Spur) Not Reportable 03/21/19 06:30 Rouleaux Not Reportable 03/21/19 06:30 Hemoglobin C Crystals Not Reportable 03/21/19 06:30 Schistocytes Not Reportable 03/21/19 06:30 Malaria parasites Not Reportable 03/21/19 06:30 Jose Juan Bodies Not Reportable 03/21/19 06:30 Hem Pathologist Commnt No 03/21/19 06:30 PT 16.3 Sec. (12.2-14.9) H 03/01/19 09:39 INR 1.35 (0.87-1.13) H 03/01/19 09:39 APTT 33.7 Sec. (24.2-36.6) 02/21/19 18:30 D-Dimer 2987.82 ng/mlDDU (0-234) H 02/22/19 05:54 POC ABG pH 7.510 (7.35-7.45) H 03/18/19 06:38 ABG pH 7.424 pH Units (7.350-7.450) 03/19/19 04:23 POC ABG pCO2 38.9 (35-45) 03/18/19 06:38 ABG pCO2 48.0 mm Hg 03/19/19 04:23 POC ABG pO2 164 (80-105) H 03/18/19 06:38 ABG pO2 78.3 mm Hg (80.0-90.0) L 03/19/19 04:23 POC ABG HCO3 31.0 (22-26 mml/L) 03/18/19 06:38 ABG HCO3 30.7 mmol/L (20.0-26.0) H 03/19/19 04:23 POC ABG Total CO2 32 (23-27mmol/L) 03/18/19 06:38 POC ABG O2 Sat 100 03/18/19 06:38 ABG O2 Saturation 97.0 % (95.0-99.0) 03/19/19 04:23 ABG O2 Content 7.9 (0.0-44) 03/19/19 04:23 POC ABG Base Excess 8 ((-2) - (+3)mmol/L) 03/18/19 06:38 ABG Base Excess 5.8 mmol/L (-2.0-3.0) H 03/19/19 04:23 ABG Hemoglobin 5.8 gm/dl (14.0-18.0) L 03/19/19 04:23 ABG Carboxyhemoglobin 2.0 % (0.0-5.0) 03/19/19 04:23 ABG Methemoglobin 0.4 % (0.0-1.5) 03/19/19 04:23 Oxyhemoglobin 94.6 % (95.0-99.0) L 03/19/19 04:23 FiO2 35 % 03/19/19 04:23 Sodium 135 mmol/L (137-145) L 05/19/19 01:00 Potassium 3.9 mmol/L (3.6-5.0) 05/19/19 01:00 Chloride 93.6 mmol/L (98-107) L 05/19/19 01:00 Carbon Dioxide 29 mmol/L (22-30) 05/19/19 01:00 Anion Gap 16 mmol/L 05/19/19 01:00 BUN 64 mg/dL (9-20) H 05/19/19 01:00 Creatinine 2.8 mg/dL (0.8-1.5) H 05/19/19 01:00 Estimated GFR 28 ml/min 05/19/19 01:00 BUN/Creatinine Ratio 23 % 05/19/19 01:00 Glucose 194 mg/dL (75-100) H 05/19/19 01:00 POC Glucose 208 (70-105) H 05/27/19 13:41 Lactic Acid 1.00 mmol/L (0.7-2.0) 02/21/19 20:58 Calcium 9.5 mg/dL (8.4-10.2) 05/19/19 01:00 Phosphorus 4.30 mg/dL (2.5-4.5) D 03/31/19 10:26 Magnesium 2.70 mg/dL (1.7-2.3) H 03/30/19 10:13 Total Bilirubin 0.20 mg/dL (0.1-1.2) 03/30/19 10:13 AST 16 units/L (5-40) 03/30/19 10:13 ALT 11 units/L (7-56) 03/30/19 10:13 Alkaline Phosphatase 185 units/L (35-129) H 03/30/19 10:13 Ammonia 28.0 umol/L (25-60) 02/21/19 20:04 Total Creatine Kinase 64 units/L (55-170) 02/22/19 03:42 CK-MB (CK-2) 3.7 ng/mL (0.0-4.0) 02/22/19 03:42 CK-MB (CK-2) Rel Index 5.7 (0-4) H 02/22/19 03:42 Troponin T 0.193 ng/mL (0.00-0.029) H* 02/22/19 03:42 Total Protein 6.9 g/dL (6.3-8.2) 03/30/19 10:13 Albumin 2.6 g/dL (3.9-5) L 03/30/19 10:13 Albumin/Globulin Ratio 0.6 % 03/30/19 10:13 Triglycerides 51 mg/dL (2-149) 02/21/19 18:30 Cholesterol 82 mg/dL (50-199) 02/21/19 18:30 LDL Cholesterol Direct 36 mg/dL (50-130) L 02/21/19 18:30 HDL Cholesterol 40 mg/dL (40-59) 02/21/19 18:30 Cholesterol/HDL Ratio 2.05 % 02/21/19 18:30 TSH 2.760 mlU/mL (0.270-4.200) 02/21/19 20:04 PTH Intact 267.6 pg/mL (15-65) H 03/02/19 05:15 Salicylates < 0.3 mg/dL (2.8-20.0) L 02/21/19 20:04 Acetaminophen < 5.0 ug/mL (10.0-30.0) L 02/21/19 20:04 Hepatitis A IgM Ab Non-reactive (NonReactive) 04/30/19 14:11 Hep Bs Antigen Non-reactive (Negative) 04/30/19 14:11 Hep B Core IgM Ab Non-reactive (NonReactive) 04/30/19 14:11 Hepatitis C Antibody Non-reactive (NonReactive) 04/30/19 14:11 Blood Type O POSITIVE 05/04/19 12:55 Antibody Screen Negative 05/04/19 12:55 Crossmatch See Detail 05/04/19 12:55 Active Medications - Current Medications Current Medications: Generic Name Dose Route Start Last Admin Trade Name Freq PRN Reason Stop Dose Admin Acetaminophen 650 mg 05/18/19 23:33 05/25/19 07:07 Tylenol PO 650 mg Q6HR PRN Administration PAIN Albuterol/Ipratropium 1 ampul 02/24/19 20:00 05/27/19 14:45 Duoneb *Not For Prn Use* IH 1 ampul TIDRT SANCHEZ Administration Lipase/Protease/Amylase 1 each 04/10/19 15:16 Pancrejewel Barrientos 10,500 Unit FEEDTUBE PRN PRN For Clogged Feeding Tube Epoetin Solitario 20,000 unit 03/24/19 11:17 05/27/19 12:19 Procrit IV 20,000 unit UMA PRN Administration hemodialysis Famotidine 20 mg 02/23/19 10:00 05/27/19 13:27 Pepcid PO 20 mg DAILY SANCHEZ Administration Sodium Chloride 100 mls @ 999 mls/hr 05/13/19 12:45 Nacl 0.9% IV UMA PRN Hypotension Insulin Human Regular 0 units 02/26/19 12:00 05/27/19 13:37 Humulin R SUB-Q 2 units Q6HR SANCHEZ Administration Protocol Metoprolol Tartrate 2.5 mg 02/28/19 12:06 03/15/19 05:15 Lopressor IV 2.5 mg Q4HR PRN Administration Tachycardia Risperidone 1 mg 02/25/19 13:00 05/27/19 13:27 Risperdal PO 1 mg DAILY SANCHEZ Administration Sertraline HCl 100 mg 02/25/19 13:00 05/27/19 13:28 Zoloft PO 100 mg DAILY SANCHEZ Administration Simple Syrup 15 ml 04/10/19 15:16 Simple Syrup FEEDTUBE PRN PRN Hypoglycemia Simple Syrup 30 ml 04/10/19 15:16 Simple Syrup FEEDTUBE PRN PRN Hypoglycemia Sodium Bicarbonate 325 mg 04/10/19 15:16 Sodium Bicarbonate FEEDTUBE PRN PRN For Clogged Feeding Tube Sodium Hypochlorite 1 applic 04/01/19 13:00 05/26/19 22:55 Dakin's Half Strength TP 1 applicatio BID SANCHEZ Administration Nutrition/Malnutrition Assess - Dietary Evaluation Nutrition/Malnutrition Findings: Nutrition Notes Start: 02/22/19 12:51 Freq: Status: Active Protocol: Document 05/21/19 12:03 IMAN (Rec: 05/21/19 12:13 IMAN [id number]) Co-Sign 05/21/19 12:03 KH Nutrition Notes Initial or Follow up Reassessment Current Diagnosis CKD (stage V CKD),Diabetes, Hypertension,Heart Failure Other Pertinent Diagnosis Sacral PU, ESRD on HD (T/Thurs /Sat), Schizophrenia,Blind in L eye,S/P trach Current Diet Nepro at 50 ml/hr w/Abhilash BID Labs/Tests POC Glu: 218 Pertinent Medications Reviewed Height 5 ft 10 in Weight 74.7 kg [place] Body Weight (kg) 75.45 BMI 23.6 Weight change and time frame Wt loss noted. Likely d/t fluid change. Subjective/Other Information Upon arrival noted tube feed was running at goal. Per nurse pt is receiving Abhilash Percent of energy/protein needs met: 100%/100% Burn Absent Trauma Absent Minimum of two criteria No #2 Nutrition Diagnosis Increased nutrient needs ( specify in comment below) Diagnosis Progress(for reassessment Continues documentation) #1 Nutrition Diagnosis Inadequate oral intake Diagnosis Progress(for reassessment Continues documentation) Is patient on ventilator? No Is Patient Ambulatory and/or Out of Bed No REE-([facility]-confined to bed) 1857.144 Kcal/Kg value to use for calculation 32 Approximate Energy Requirements Using 2390 kcal/Kg Calculation Used for Recommendations Kcal/kg Additional Notes PRO: 82-103g/day(1.2-1.5g/kg) Fluid: per MD Nutrition Intervention Change Diet Order: Continue TF Nutrition Support: Nepro with Carbsteady 1.8 at 50 ml/hr Flush 200 ml q4hr Kcal 2,160 Protein (gm) 97 Fluid (mL) 872 Add Supplement/Snack (indicate name/kcal Abhilash BID /protein ) Provides kCal: 190 Provides Protein (gm) 5 Goal #1 Continue to meet at least 75% of calorie and protein needs via TF Anticipated Discharge Needs: TF Follow-Up By: 05/28/19 Additional Comments F/U for TF tolereance and Abhilash
[2019-05-27] MEDS: ACETAMINOPHEN 325 MG TAB PO PRN (16:40)
[2019-05-27] MEDS: SODIUM HYPOCHLORITE, DAKIN'S 1/2 STRENGTH (0.25%) 473 ML TOPICAL SOLN TP SCH ×2 (16:49→22:59)
[2019-05-27] MEDS ORDERED: SODIUM CHLORIDE*PRIMING MACHINE ONLY FOR DIALYSIS MC ONE (22:49)
[2019-05-28] MEDS: INSULIN REGULAR, HUMAN 100 UNITS/1 ML SUB-Q SCH ×4 (04:17→17:32)
[2019-05-28] MEDS: IPRATROPIUM/ALBUTEROL SULFATE 3 ML AMPUL.NEB IH SCH ×3 (07:41→20:41)
--- NOTE | 2019-05-28 08:33 | Progress Note ---
Subjective Principal diagnosis: Respiratory failure, acute on chronic systolic HF, ESRD Interval history: Patient was seen today for follow-up on multiple renal related issues on hemodialysis Saturday and Saturday patient is arousable, opens his eyes Currently on tube feeding Vitals intake output medications were reviewed Past medical history: Reviewed Family, social history: Reviewed Allergies: Reviewed Physical examination General: No acute distress Vitals: Reviewed HEENT: Oral mucosa moist no icterus Neck: Supple no thyromegaly nodular mass or JVD Chest: Clear to auscultation anteriorly Heart: Regular rate and rhythm S1-S2 heard no S3-S4 Abdomen: Soft nontender no suprapubic masses no organomegaly Extremity: Dry skin less than 1+ edema Psych: No evidence of any agitation and aggression noted Derm: No petechial rash Assessment and plan: ESRD continue with hemodialysis 3 times a week, as tolerated/ monitor hemodynamics closely Avoid any drop in blood pressure, monitor heart rate closely family has requested to continue with hemodialysis Dialysis patients in general , have guarded prognosis in his case his mortality risk is very high Patient in my opinion is hospice appropriate Pending outpatient dialysis clinic acceptance monitor labs periodically Hemodialysis only as tolerated. Discussed with dialysis crew We'll continue to follow and make recommendation from renal standpoint Objective - Vital Signs Vital signs: Vital Signs - 12hr 05/27/19 05/27/19 05/27/19 21:00 22:44 23:24 Temperature 98.9 F 99.0 F Pulse Rate 120 H 113 H Pulse Rate [ 106 H Anterior Bilateral Throughout] Respiratory 18 22 Rate Respiratory 14 Rate [Anterior Bilateral Throughout] Blood Pressure 118/69 113/63 O2 Sat by Pulse 97 97 Oximetry 05/28/19 06:26 Temperature 98.7 F Pulse Rate 129 H Pulse Rate [ Anterior Bilateral Throughout] Respiratory 24 Rate Respiratory Rate [Anterior Bilateral Throughout] Blood Pressure 135/74 O2 Sat by Pulse 98 Oximetry - Lab 05/28/19 10:57 05/28/19 10:57 Most recent lab results ABG pH 7.424 pH Units (7.350-7.450) 03/19/19 04:23 ABG pCO2 48.0 mm Hg 03/19/19 04:23 ABG pO2 78.3 mm Hg (80.0-90.0) L 03/19/19 04:23 ABG HCO3 30.7 mmol/L (20.0-26.0) H 03/19/19 04:23 ABG O2 Saturation 97.0 % (95.0-99.0) 03/19/19 04:23 Calcium 9.5 mg/dL (8.4-10.2) 05/19/19 01:00 Phosphorus 4.30 mg/dL (2.5-4.5) D 03/31/19 10:26 Magnesium 2.70 mg/dL (1.7-2.3) H 03/30/19 10:13 Medications & Allergies - Medications Allergies/Adverse Reactions: Allergies haloperidol [From Haldol] Adverse Reaction (Verified 03/13/18 12:10) Unknown haloperidol lactate [From Haldol] Adverse Reaction (Verified 03/13/18 12:10) Unknown Home Medications: Home Medications Medication Instructions Recorded Confirmed Last Taken Type risperiDONE [RisperDAL] 1 mg PO QAM 03/13/18 02/21/19 Unknown History Sertraline [Zoloft] 100 mg PO QDAY 08/26/18 02/21/19 Unknown History Polyethylene Glycol 3350 [Miralax 17 gm PO QDAY #30 packet 11/05/18 02/21/19 Unknown Rx 3350] Aspirin EC [Halfprin EC] 81 mg PO DAILY #30 11/19/18 02/21/19 Unknown Rx Docusate Sodium [Colace CAP] 100 mg PO BID #60 11/19/18 02/21/19 Unknown Rx Folic Acid [Folvite] 1 mg PO DAILY #30 tab 11/19/18 02/21/19 Unknown Rx Famotidine [Pepcid] 20 mg PO DAILY tablet 12/08/18 02/21/19 Unknown Rx Gabapentin 100 mg PO QHS capsule 12/08/18 02/21/19 Unknown Rx Metoprolol [Lopressor TAB] 50 mg PO BID 30 Days tablet 12/08/18 02/21/19 Unknown Rx Sevelamer Carbonate [Renvela] 800 mg PO TIDWM tablet 12/08/18 02/21/19 Unknown Rx hydrALAZINE [Apresoline TAB] 100 mg PO Q8HR #120 tablet 12/08/18 02/21/19 Unknown Rx Acetaminophen [Acetaminophen TAB] 650 mg PO Q12H PRN 12/15/18 02/21/19 Unknown History Glucagon,Human Recombinant 1 mg IJ Q15MIN PRN 12/15/18 02/21/19 Unknown History [Glucagon Emergency Kit] Insulin Aspart [NovoLOG 100 See Protocol SQ QWEEK 12/15/18 02/21/19 Unknown History UNITS/ML VIAL] Active Medications: Generic Name Dose Route Start Last Admin Trade Name Freq PRN Reason Stop Dose Admin Acetaminophen 650 mg 05/18/19 23:33 05/27/19 16:40 Tylenol PO 650 mg Q6HR PRN Administration PAIN Albuterol/Ipratropium 1 ampul 02/24/19 20:00 05/28/19 07:41 Duoneb *Not For Prn Use* IH 1 ampul TIDRT SANCHEZ Administration Lipase/Protease/Amylase 1 each 04/10/19 15:16 Pancreaze 10,500 Unit FEEDTUBE PRN PRN For Clogged Feeding Tube Epoetin Solitario 20,000 unit 03/24/19 11:17 05/27/19 12:19 Procrit IV 20,000 unit UMA PRN Administration hemodialysis Famotidine 20 mg 02/23/19 10:00 05/27/19 13:27 Pepcid PO 20 mg DAILY SANCHEZ Administration Sodium Chloride 100 mls @ 999 mls/hr 05/13/19 12:45 Nacl 0.9% IV UMA PRN Hypotension Insulin Human Regular 0 units 02/26/19 12:00 05/28/19 06:57 Humulin R SUB-Q Not Given Q6HR [facility] Protocol Metoprolol Tartrate 2.5 mg 02/28/19 12:06 03/15/19 05:15 Lopressor IV 2.5 mg Q4HR PRN Administration Tachycardia Risperidone 1 mg 02/25/19 13:00 05/27/19 13:27 Risperdal PO 1 mg DAILY SANCHEZ Administration Sertraline HCl 100 mg 02/25/19 13:00 05/27/19 13:28 Zoloft PO 100 mg DAILY SANCHEZ Administration Simple Syrup 15 ml 04/10/19 15:16 Simple Syrup FEEDTUBE PRN PRN Hypoglycemia Simple Syrup 30 ml 04/10/19 15:16 Simple Syrup FEEDTUBE PRN PRN Hypoglycemia Sodium Bicarbonate 325 mg 04/10/19 15:16 Sodium Bicarbonate FEEDTUBE PRN PRN For Clogged Feeding Tube Sodium Hypochlorite 1 applic 04/01/19 13:00 05/27/19 22:59 Estephania's Half Strength TP 1 applicatio BID SANCHEZ Administration
--- NOTE | 2019-05-28 10:48 | Progress Note ---
Assessment and Plan Cultures: Blood cultures 12/26/2018 no growth today. Blood cultures 01/01/2019 no growth today. Wound cultures 01/02/2019 ESBL Kleb, MDR Ecoli and E raffinosus resistant to penicillin. 03/14 Sputum Cx: MDR Acinetobacter 03/14 BCx: NGTD 03/17 Sputum CX: MDR Acinetobacter 05/19 sputum Cx - unfit for culture Assessment: 63 y/o male with history of ESRD on HD, HTN, CAD S/P CABG, CVA, DM, Atrial Fib, Anemia, Hyperparathyroidism, Hypocalcemia, schizophrenia; well known to ID service from previous admissions, most recently on 12/26/2018 due to sepsis from unstagable necrotic sacral decubitus s/p OR on 01/01/2019 for open excisional debridement of necrotic sacral wound with ESBL Kleb, MDR Ecoli, treated with Meropenem 1 gm IV every 24 hours via tunneled catheter and Vancomycin 1 gm post HD Saturday, and Saturday for 6 weeks ending 02-16-19; readmitted: 1. Sepsis: again with fevers and leukocytosis, tachycardia. Would assume repeat tracheitis. Obtain sputum cultures. Given his history of MDR I would avoid empiric antibiotics as we have so few options left. Will give targeted antibiotics pending sputum results. Strongly need to consider hospice. 2. Hypoxic respiratory failure - per pulmonary. off vent. Capping trials 3. DM2 4. Left 5th finger pressure ulcer: not infected 5. Sacral stage IV ulcer s/p extensive treatment - NOT infected currently; treated with Meropenem 1 gm IV every 24 hours via tunneled catheter and Vancomycin 1 gm post HD Saturday, and Saturday for 6 weeks ending 02-16-19 6. ESRD on HD Recommendations: - sputum cultures with >10 epithelial cells. had a low grade temperature. Given his co-morbidities this may continue to recur. If persistent fevers please obtain repeat sputum cultures - Would not start antibiotics in the absence of culture data. Fevers have not recurred. - contact precautions - consider hospice, he will continue to develop worsening resistance and we will exhaust all therapeutic options for Acinetobacter very quicky. Will follow. Sherman Shirley MD [facility] M: [phone] O: [phone] F: [phone] Subjective Date of service: 05/28/19 Principal diagnosis: Respiratory failure, acute on chronic systolic HF, ESRD Interval history: No acute change at present. Objective - Exam Narrative Exam: Constitutional: Alert, cooperative. No acute distress Neck: Supple, no meningeal signs. Trach in place. Oral: dentition fair, no thrush Cardiovascular: S1, S2 normal. Respiratory: Good air entry, clear to auscultation bilaterally GI: Soft, non-tender; bowel sounds normal. No peritoneal signs. Musculoskeletal: No pedal edema, no cyanosis. Skin: No rash or abscess Neurological: Awake, trached. No gross abnormality - Constitutional Vitals: Vital Signs Temp Pulse Resp BP Pulse Ox 98.7 F 108 H 80 H 135/74 99 05/28/19 06:26 05/28/19 07:50 05/28/19 07:50 05/28/19 06:26 05/28/19 09:09 Temperature -Last 24 Hours Temperature 98.7 F Temperature 99.0 F Temperature 98.9 F Temperature 97.8 F Temperature 98.3 F - Labs CBC & Chem 7: 05/19/19 01:00 05/19/19 01:00 Labs: Abnormal lab results 05/27/19 05/27/19 05/27/19 Range/Units 13:41 17:03 23:36 POC Glucose 208 H 195 H 169 H (70-105) 05/28/19 Range/Units 06:46 POC Glucose 125 H (70-105)
[2019-05-28 11:36] LABS: Basophils # (Auto) 0.1 K/mm3 (0.0-0.1); Eosinophils # (Auto) 0.5 K/mm3 (0.0-0.4); Eosinophils % (Auto) 4.2 % (0.0-4.3); Hematocrit 24.9 % (35.5-45.6); Hemoglobin 7.9 gm/dl (11.8-15.2); Lymphocytes # (Auto) 0.9 K/mm3 (1.2-5.4); Lymphocytes % (Auto) 7.5 % (13.4-35.0); Mean Corpuscular HGB Conc 32 % (32-34); Mean Corpuscular Volume 82 fl (84-94); Monocytes # (Auto) 0.9 K/mm3 (0.0-0.8); Monocytes % (Auto) 7.8 % (0.0-7.3); Platelet Count 427 K/mm3 (140-440); Red Blood Count 3.05 M/mm3 (3.65-5.03)
[2019-05-28 11:37] LABS: Red Cell Distribution Width 21.6 % (13.2-15.2)
[2019-05-28] MEDS: SODIUM HYPOCHLORITE, DAKIN'S 1/2 STRENGTH (0.25%) 473 ML TOPICAL SOLN TP SCH ×2 (12:18→22:44)
[2019-05-28] MEDS: FAMOTIDINE 20 MG TAB PO SCH (12:19)
[2019-05-28] MEDS: risperiDONE 1 MG TAB PO SCH (12:19)
[2019-05-28] MEDS: SERTRALINE 100 MG TAB PO SCH (12:19)
[2019-05-28 12:20] LABS: Albumin 2.2 g/dL (3.9-5); Calcium 10.2 mg/dL (8.4-10.2)
--- NOTE | 2019-05-28 14:41 | Progress Note ---
Assessment and Plan 63 y/o male with multiple medical issues admitted with altered mental status, acute respiratory failure requiring mechanical ventilation, now trached, on HD unable to find placement given this combination, now with recurrent fevers. No new recommendations for today. Please see below 1. Continue capping trials. Nasal cannula therapy. 2. HD per renal 3. PT/OT if possible 4. CM working on placement 5. No objection to discharge once placement is found Agree with ID note. Patient is a DNR. He is not to be placed back on the ventilator. Acetinetobacter was seen in lungs last time, most likely could resurface their again. Remainder for those who are not as familiar with this case. Patient has been in the hospital on this particular stay over 3 months. Subjective Date of service: 05/28/19 Principal diagnosis: Respiratory failure, acute on chronic systolic HF, ESRD Interval history: No acute events. Stable Objective Vital Signs - 12hr 05/28/19 05/28/19 05/28/19 06:26 07:50 09:07 Temperature 98.7 F Pulse Rate 129 H Pulse Rate [ 108 H Anterior Bilateral Throughout] Respiratory 24 Rate Respiratory 80 H Rate [Anterior Bilateral Throughout] Blood Pressure 135/74 O2 Sat by Pulse 98 98 Oximetry O2 Sat by Pulse Oximetry [ Assessment] 05/28/19 05/28/19 05/28/19 09:09 12:11 13:59 Temperature 100.2 F H Pulse Rate 117 H Pulse Rate [ 117 H Anterior Bilateral Throughout] Respiratory 20 Rate Respiratory 18 Rate [Anterior Bilateral Throughout] Blood Pressure 95/47 O2 Sat by Pulse 96 Oximetry O2 Sat by Pulse 99 Oximetry [ Assessment] Constitutional: no acute distress, other (agitated) Eyes: non-icteric ENT: oropharynx moist Neck: supple, other (tracheostomy tube noted) Effort: normal Ascultation: Bilateral: diminished breath sounds, other (coarse BS bilaterally) Percussion: Bilateral: not dull Cardiovascular: regular rate and rhythm (no mrg) Gastrointestinal: normoactive bowel sounds, soft, non-tender, non-distended, other (ostomy in place, brown stool) Extremities: no cyanosis, no edema, pink and warm Neurologic: other (mild weakness LUE, o/w nonfocal) Psychiatric: other (unable to assess) CBC and BMP: 05/28/19 10:57 05/28/19 10:57 ABG, PT/INR, D-dimer: ABG POC ABG pH 7.510 (7.35-7.45) H 03/18/19 06:38 ABG pH 7.424 pH Units (7.350-7.450) 03/19/19 04:23 POC ABG pCO2 38.9 (35-45) 03/18/19 06:38 ABG pCO2 48.0 mm Hg 03/19/19 04:23 POC ABG pO2 164 (80-105) H 03/18/19 06:38 ABG pO2 78.3 mm Hg (80.0-90.0) L 03/19/19 04:23 POC ABG HCO3 31.0 (22-26 mml/L) 03/18/19 06:38 POC ABG Total CO2 32 (23-27mmol/L) 03/18/19 06:38 POC ABG O2 Sat 100 03/18/19 06:38 ABG O2 Saturation 97.0 % (95.0-99.0) 03/19/19 04:23 PT/INR, D-dimer PT 16.3 Sec. (12.2-14.9) H 03/01/19 09:39 INR 1.35 (0.87-1.13) H 03/01/19 09:39 D-Dimer 2987.82 ng/mlDDU (0-234) H 02/22/19 05:54 Abnormal lab findings: Abnormal Labs 02/21/19 02/21/19 02/21/19 18:30 18:30 18:30 WBC RBC 3.26 L Hgb 8.8 L Hct 29.0 L MCV MCH 27 L MCHC 30 L RDW 19.1 H Plt Count Lymph % (Auto) 6.1 L [place] % (Auto) Eos % (Auto) Baso % (Auto) Lymph # 0.4 L [place] # Eos # Baso # Seg Neutrophils % 86.2 H Seg Neuts % (Manual) Lymphocytes % (Manual) Eosinophils % (Manual) Seg Neutrophils # Lymphocytes # (Manual) Eosinophils # (Manual) PT INR D-Dimer POC ABG pH POC ABG pCO2 POC ABG pO2 ABG pO2 ABG HCO3 ABG Base Excess ABG Hemoglobin Oxyhemoglobin Sodium 133 L Potassium 3.3 L Chloride 93.1 L Carbon Dioxide 33 H BUN Creatinine Glucose 161 H POC Glucose Calcium Phosphorus Magnesium ALT Alkaline Phosphatase 136 H Total Creatine Kinase 37 L CK-MB (CK-2) Rel Index Troponin T 0.192 H* Albumin 2.4 L LDL Cholesterol Direct 36 L PTH Intact Salicylates Acetaminophen Crossmatch 02/21/19 02/21/19 02/21/19 18:42 20:04 20:04 WBC RBC Hgb Hct MCV MCH MCHC RDW Plt Count Lymph % (Auto) [place] % (Auto) Eos % (Auto) Baso % (Auto) Lymph # [place] # Eos # Baso # Seg Neutrophils % Seg Neuts % (Manual) Lymphocytes % (Manual) Eosinophils % (Manual) Seg Neutrophils # Lymphocytes # (Manual) Eosinophils # (Manual) PT INR D-Dimer POC ABG pH POC ABG pCO2 56.7 H POC ABG pO2 291 H ABG pO2 ABG HCO3 ABG Base Excess ABG Hemoglobin Oxyhemoglobin Sodium Potassium Chloride Carbon Dioxide BUN Creatinine Glucose POC Glucose Calcium Phosphorus Magnesium ALT Alkaline Phosphatase Total Creatine Kinase CK-MB (CK-2) Rel Index Troponin T Albumin LDL Cholesterol Direct PTH Intact Salicylates < 0.3 L Acetaminophen < 5.0 L Crossmatch 02/21/19 02/22/19 02/22/19 22:35 03:42 03:42 WBC RBC 3.20 L Hgb 8.8 L Hct 27.6 L MCV MCH MCHC RDW 18.9 H Plt Count Lymph % (Auto) 7.4 L [place] % (Auto) Eos % (Auto) Baso % (Auto) Lymph # 0.7 L [place] # Eos # Baso # Seg Neutrophils % 84.7 H Seg Neuts % (Manual) Lymphocytes % (Manual) Eosinophils % (Manual) Seg Neutrophils # Lymphocytes # (Manual) Eosinophils # (Manual) PT INR D-Dimer POC ABG pH POC ABG pCO2 POC ABG pO2 ABG pO2 ABG HCO3 ABG Base Excess ABG Hemoglobin Oxyhemoglobin Sodium 134 L Potassium 2.6 L* D Chloride Carbon Dioxide BUN Creatinine Glucose POC Glucose Calcium Phosphorus Magnesium ALT Alkaline Phosphatase Total Creatine Kinase CK-MB (CK-2) Rel Index 5.2 H Troponin T 0.202 H* Albumin LDL Cholesterol Direct PTH Intact Salicylates Acetaminophen Crossmatch 02/22/19 02/22/19 02/22/19 03:42 05:54 09:04 WBC RBC Hgb Hct MCV MCH MCHC RDW Plt Count Lymph % (Auto) [place] % (Auto) Eos % (Auto) Baso % (Auto) Lymph # [place] # Eos # Baso # Seg Neutrophils % Seg Neuts % (Manual) Lymphocytes % (Manual) Eosinophils % (Manual) Seg Neutrophils # Lymphocytes # (Manual) Eosinophils # (Manual) PT INR D-Dimer 2987.82 H POC ABG pH 7.451 H POC ABG pCO2 POC ABG pO2 ABG pO2 ABG HCO3 ABG Base Excess ABG Hemoglobin Oxyhemoglobin Sodium Potassium Chloride Carbon Dioxide BUN Creatinine Glucose POC Glucose Calcium Phosphorus Magnesium ALT Alkaline Phosphatase Total Creatine Kinase CK-MB (CK-2) Rel Index 5.7 H Troponin T 0.193 H* Albumin LDL Cholesterol Direct PTH Intact Salicylates Acetaminophen Crossmatch 02/22/19 02/22/19 02/23/19 10:36 23:56 00:52 WBC RBC Hgb Hct MCV MCH MCHC RDW Plt Count Lymph % (Auto) [place] % (Auto) Eos % (Auto) Baso % (Auto) Lymph # [place] # Eos # Baso # Seg Neutrophils % Seg Neuts % (Manual) Lymphocytes % (Manual) Eosinophils % (Manual) Seg Neutrophils # Lymphocytes # (Manual) Eosinophils # (Manual) PT INR D-Dimer POC ABG pH POC ABG pCO2 POC ABG pO2 ABG pO2 ABG HCO3 ABG Base Excess ABG Hemoglobin Oxyhemoglobin Sodium Potassium 3.1 L Chloride Carbon Dioxide BUN Creatinine Glucose POC Glucose 58 L 111 H Calcium Phosphorus Magnesium ALT Alkaline Phosphatase Total Creatine Kinase CK-MB (CK-2) Rel Index Troponin T Albumin LDL Cholesterol Direct PTH Intact Salicylates Acetaminophen Crossmatch 02/23/19 02/23/19 02/23/19 05:00 06:35 14:26 WBC RBC Hgb Hct MCV MCH MCHC RDW Plt Count Lymph % (Auto) [place] % (Auto) Eos % (Auto) Baso % (Auto) Lymph # [place] # Eos # Baso # Seg Neutrophils % Seg Neuts % (Manual) Lymphocytes % (Manual) Eosinophils % (Manual) Seg Neutrophils # Lymphocytes # (Manual) Eosinophils # (Manual) PT INR D-Dimer POC ABG pH POC ABG pCO2 POC ABG pO2 ABG pO2 ABG HCO3 ABG Base Excess ABG Hemoglobin Oxyhemoglobin Sodium 135 L Potassium 3.1 L Chloride Carbon Dioxide BUN 21 H Creatinine 2.0 H Glucose 57 L POC Glucose 64 L 62 L Calcium Phosphorus Magnesium ALT Alkaline Phosphatase Total Creatine Kinase CK-MB (CK-2) Rel Index Troponin T Albumin LDL Cholesterol Direct PTH Intact Salicylates Acetaminophen Crossmatch 02/24/19 02/24/19 02/24/19 02:11 04:12 04:55 WBC RBC 2.84 L Hgb 7.8 L Hct 24.5 L MCV MCH MCHC RDW 19.5 H Plt Count Lymph % (Auto) [place] % (Auto) Eos % (Auto) Baso % (Auto) Lymph # [place] # Eos # Baso # Seg Neutrophils % Seg Neuts % (Manual) Lymphocytes % (Manual) Eosinophils % (Manual) Seg Neutrophils # Lymphocytes # (Manual) Eosinophils # (Manual) PT INR D-Dimer POC ABG pH 7.511 H POC ABG pCO2 33.9 L POC ABG pO2 62 L ABG pO2 ABG HCO3 ABG Base Excess ABG Hemoglobin Oxyhemoglobin Sodium Potassium Chloride Carbon Dioxide BUN Creatinine Glucose POC Glucose 69 L Calcium Phosphorus Magnesium ALT Alkaline Phosphatase Total Creatine Kinase CK-MB (CK-2) Rel Index Troponin T Albumin LDL Cholesterol Direct PTH Intact Salicylates Acetaminophen Crossmatch 02/24/19 02/24/19 02/25/19 04:55 05:41 04:45 WBC RBC Hgb Hct MCV MCH MCHC RDW Plt Count Lymph % (Auto) [place] % (Auto) Eos % (Auto) Baso % (Auto) Lymph # [place] # Eos # Baso # Seg Neutrophils % Seg Neuts % (Manual) Lymphocytes % (Manual) Eosinophils % (Manual) Seg Neutrophils # Lymphocytes # (Manual) Eosinophils # (Manual) PT INR D-Dimer POC ABG pH 7.466 H POC ABG pCO2 POC ABG pO2 75 L ABG pO2 ABG HCO3 ABG Base Excess ABG Hemoglobin Oxyhemoglobin Sodium Potassium Chloride Carbon Dioxide BUN Creatinine 1.8 H Glucose 73 L POC Glucose 127 H Calcium Phosphorus Magnesium ALT Alkaline Phosphatase Total Creatine Kinase CK-MB (CK-2) Rel Index Troponin T Albumin LDL Cholesterol Direct PTH Intact Salicylates Acetaminophen Crossmatch 02/25/19 02/25/19 02/26/19 16:34 21:33 03:45 WBC RBC 2.96 L Hgb 8.0 L Hct 25.8 L MCV MCH 27 L MCHC 31 L RDW 20.0 H Plt Count Lymph % (Auto) [place] % (Auto) Eos % (Auto) Baso % (Auto) Lymph # [place] # Eos # Baso # Seg Neutrophils % Seg Neuts % (Manual) Lymphocytes % (Manual) Eosinophils % (Manual) Seg Neutrophils # Lymphocytes # (Manual) Eosinophils # (Manual) PT INR D-Dimer POC ABG pH POC ABG pCO2 POC ABG pO2 ABG pO2 ABG HCO3 ABG Base Excess ABG Hemoglobin Oxyhemoglobin Sodium Potassium Chloride Carbon Dioxide BUN Creatinine Glucose POC Glucose 141 H 106 H Calcium Phosphorus Magnesium ALT Alkaline Phosphatase Total Creatine Kinase CK-MB (CK-2) Rel Index Troponin T Albumin LDL Cholesterol Direct PTH Intact Salicylates Acetaminophen Crossmatch 02/26/19 02/26/19 02/26/19 03:45 04:13 07:53 WBC RBC Hgb Hct MCV MCH MCHC RDW Plt Count Lymph % (Auto) [place] % (Auto) Eos % (Auto) Baso % (Auto) Lymph # [place] # Eos # Baso # Seg Neutrophils % Seg Neuts % (Manual) Lymphocytes % (Manual) Eosinophils % (Manual) Seg Neutrophils # Lymphocytes # (Manual) Eosinophils # (Manual) PT INR D-Dimer POC ABG pH 7.470 H POC ABG pCO2 POC ABG pO2 ABG pO2 ABG HCO3 ABG Base Excess ABG Hemoglobin Oxyhemoglobin Sodium Potassium Chloride Carbon Dioxide BUN Creatinine 1.8 H Glucose POC Glucose 110 H Calcium Phosphorus Magnesium ALT Alkaline Phosphatase Total Creatine Kinase CK-MB (CK-2) Rel Index Troponin T Albumin LDL Cholesterol Direct PTH Intact Salicylates Acetaminophen Crossmatch 02/26/19 02/26/19 02/27/19 11:56 17:43 00:12 WBC RBC Hgb Hct MCV MCH MCHC RDW Plt Count Lymph % (Auto) [place] % (Auto) Eos % (Auto) Baso % (Auto) Lymph # [place] # Eos # Baso # Seg Neutrophils % Seg Neuts % (Manual) Lymphocytes % (Manual) Eosinophils % (Manual) Seg Neutrophils # Lymphocytes # (Manual) Eosinophils # (Manual) PT INR D-Dimer POC ABG pH POC ABG pCO2 POC ABG pO2 ABG pO2 ABG HCO3 ABG Base Excess ABG Hemoglobin Oxyhemoglobin Sodium Potassium Chloride Carbon Dioxide BUN Creatinine Glucose POC Glucose 112 H 127 H 127 H Calcium Phosphorus Magnesium ALT Alkaline Phosphatase Total Creatine Kinase CK-MB (CK-2) Rel Index Troponin T Albumin LDL Cholesterol Direct PTH Intact Salicylates Acetaminophen Crossmatch 02/27/19 02/27/19 02/27/19 04:35 13:15 18:02 WBC RBC Hgb Hct MCV MCH MCHC RDW Plt Count Lymph % (Auto) [place] % (Auto) Eos % (Auto) Baso % (Auto) Lymph # [place] # Eos # Baso # Seg Neutrophils % Seg Neuts % (Manual) Lymphocytes % (Manual) Eosinophils % (Manual) Seg Neutrophils # Lymphocytes # (Manual) Eosinophils # (Manual) PT INR D-Dimer POC ABG pH 7.483 H POC ABG pCO2 POC ABG pO2 61 L ABG pO2 ABG HCO3 ABG Base Excess ABG Hemoglobin Oxyhemoglobin Sodium Potassium Chloride Carbon Dioxide BUN Creatinine Glucose POC Glucose 143 H 106 H Calcium Phosphorus Magnesium ALT Alkaline Phosphatase Total Creatine Kinase CK-MB (CK-2) Rel Index Troponin T Albumin LDL Cholesterol Direct PTH Intact Salicylates Acetaminophen Crossmatch 02/28/19 02/28/19 02/28/19 05:50 11:59 17:52 WBC RBC Hgb Hct MCV MCH MCHC RDW Plt Count Lymph % (Auto) [place] % (Auto) Eos % (Auto) Baso % (Auto) Lymph # [place] # Eos # Baso # Seg Neutrophils % Seg Neuts % (Manual) Lymphocytes % (Manual) Eosinophils % (Manual) Seg Neutrophils # Lymphocytes # (Manual) Eosinophils # (Manual) PT INR D-Dimer POC ABG pH POC ABG pCO2 POC ABG pO2 ABG pO2 ABG HCO3 ABG Base Excess ABG Hemoglobin Oxyhemoglobin Sodium Potassium Chloride Carbon Dioxide BUN Creatinine Glucose POC Glucose 134 H 128 H 142 H Calcium Phosphorus Magnesium ALT Alkaline Phosphatase Total Creatine Kinase CK-MB (CK-2) Rel Index Troponin T Albumin LDL Cholesterol Direct PTH Intact Salicylates Acetaminophen Crossmatch 02/28/19 03/01/19 03/01/19 23:13 05:40 09:39 WBC RBC Hgb Hct MCV MCH MCHC RDW Plt Count Lymph % (Auto) [place] % (Auto) Eos % (Auto) Baso % (Auto) Lymph # [place] # Eos # Baso # Seg Neutrophils % Seg Neuts % (Manual) Lymphocytes % (Manual) Eosinophils % (Manual) Seg Neutrophils # Lymphocytes # (Manual) Eosinophils # (Manual) PT 16.3 H INR 1.35 H D-Dimer POC ABG pH POC ABG pCO2 POC ABG pO2 ABG pO2 ABG HCO3 ABG Base Excess ABG Hemoglobin Oxyhemoglobin Sodium Potassium Chloride Carbon Dioxide BUN Creatinine Glucose POC Glucose 112 H 111 H Calcium Phosphorus Magnesium ALT Alkaline Phosphatase Total Creatine Kinase CK-MB (CK-2) Rel Index Troponin T Albumin LDL Cholesterol Direct PTH Intact Salicylates Acetaminophen Crossmatch 03/01/19 03/01/19 03/01/19 11:56 13:54 17:59 WBC RBC Hgb Hct MCV MCH MCHC RDW Plt Count Lymph % (Auto) [place] % (Auto) Eos % (Auto) Baso % (Auto) Lymph # [place] # Eos # Baso # Seg Neutrophils % Seg Neuts % (Manual) Lymphocytes % (Manual) Eosinophils % (Manual) Seg Neutrophils # Lymphocytes # (Manual) Eosinophils # (Manual) PT INR D-Dimer POC ABG pH POC ABG pCO2 POC ABG pO2 ABG pO2 ABG HCO3 ABG Base Excess ABG Hemoglobin Oxyhemoglobin Sodium Potassium Chloride Carbon Dioxide BUN 33 H Creatinine 2.8 H D Glucose 176 H POC Glucose 199 H 147 H Calcium Phosphorus Magnesium ALT Alkaline Phosphatase Total Creatine Kinase CK-MB (CK-2) Rel Index Troponin T Albumin LDL Cholesterol Direct PTH Intact Salicylates Acetaminophen Crossmatch 03/02/19 03/02/19 03/02/19 05:15 05:15 05:15 WBC RBC 2.73 L Hgb 7.4 L Hct 23.0 L MCV MCH 27 L MCHC RDW 19.9 H Plt Count Lymph % (Auto) [place] % (Auto) 7.9 H Eos % (Auto) 7.6 H Baso % (Auto) Lymph # 1.0 L [place] # Eos # 0.5 H Baso # Seg Neutrophils % Seg Neuts % (Manual) Lymphocytes % (Manual) Eosinophils % (Manual) Seg Neutrophils # Lymphocytes # (Manual) Eosinophils # (Manual) PT INR D-Dimer POC ABG pH POC ABG pCO2 POC ABG pO2 ABG pO2 ABG HCO3 ABG Base Excess ABG Hemoglobin Oxyhemoglobin Sodium Potassium Chloride Carbon Dioxide BUN 43 H Creatinine 3.2 H Glucose POC Glucose Calcium Phosphorus 2.30 L Magnesium ALT Alkaline Phosphatase Total Creatine Kinase CK-MB (CK-2) Rel Index Troponin T Albumin LDL Cholesterol Direct PTH Intact 267.6 H Salicylates Acetaminophen Crossmatch 03/02/19 03/02/19 03/03/19 12:32 18:20 13:30 WBC RBC Hgb Hct MCV MCH MCHC RDW Plt Count Lymph % (Auto) [place] % (Auto) Eos % (Auto) Baso % (Auto) Lymph # [place] # Eos # Baso # Seg Neutrophils % Seg Neuts % (Manual) Lymphocytes % (Manual) Eosinophils % (Manual) Seg Neutrophils # Lymphocytes # (Manual) Eosinophils # (Manual) PT INR D-Dimer POC ABG pH POC ABG pCO2 POC ABG pO2 ABG pO2 ABG HCO3 ABG Base Excess ABG Hemoglobin Oxyhemoglobin Sodium Potassium Chloride 97.3 L Carbon Dioxide BUN 26 H Creatinine 2.2 H Glucose 73 L POC Glucose 111 H 156 H Calcium Phosphorus Magnesium ALT Alkaline Phosphatase Total Creatine Kinase CK-MB (CK-2) Rel Index Troponin T Albumin LDL Cholesterol Direct PTH Intact Salicylates Acetaminophen Crossmatch 03/04/19 03/04/19 03/04/19 00:02 05:37 05:40 WBC RBC 2.63 L Hgb 7.2 L Hct 22.2 L MCV MCH MCHC RDW 20.2 H Plt Count Lymph % (Auto) 10.5 L [place] % (Auto) Eos % (Auto) 4.6 H Baso % (Auto) Lymph # 0.7 L [place] # Eos # Baso # Seg Neutrophils % 76.9 H Seg Neuts % (Manual) Lymphocytes % (Manual) Eosinophils % (Manual) Seg Neutrophils # Lymphocytes # (Manual) Eosinophils # (Manual) PT INR D-Dimer POC ABG pH POC ABG pCO2 POC ABG pO2 ABG pO2 ABG HCO3 ABG Base Excess ABG Hemoglobin Oxyhemoglobin Sodium Potassium Chloride Carbon Dioxide BUN Creatinine Glucose POC Glucose 136 H 123 H Calcium Phosphorus Magnesium ALT Alkaline Phosphatase Total Creatine Kinase CK-MB (CK-2) Rel Index Troponin T Albumin LDL Cholesterol Direct PTH Intact Salicylates Acetaminophen Crossmatch 03/04/19 03/04/19 03/04/19 05:40 11:39 23:20 WBC RBC Hgb Hct MCV MCH MCHC RDW Plt Count Lymph % (Auto) [place] % (Auto) Eos % (Auto) Baso % (Auto) Lymph # [place] # Eos # Baso # Seg Neutrophils % Seg Neuts % (Manual) Lymphocytes % (Manual) Eosinophils % (Manual) Seg Neutrophils # Lymphocytes # (Manual) Eosinophils # (Manual) PT INR D-Dimer POC ABG pH POC ABG pCO2 POC ABG pO2 ABG pO2 ABG HCO3 ABG Base Excess ABG Hemoglobin Oxyhemoglobin Sodium Potassium Chloride Carbon Dioxide BUN 34 H Creatinine 2.7 H Glucose 114 H POC Glucose 175 H 151 H Calcium Phosphorus Magnesium ALT Alkaline Phosphatase Total Creatine Kinase CK-MB (CK-2) Rel Index Troponin T Albumin LDL Cholesterol Direct PTH Intact Salicylates Acetaminophen Crossmatch 03/05/19 03/05/19 03/05/19 05:37 12:08 17:11 WBC RBC Hgb Hct MCV MCH MCHC RDW Plt Count Lymph % (Auto) [place] % (Auto) Eos % (Auto) Baso % (Auto) Lymph # [place] # Eos # Baso # Seg Neutrophils % Seg Neuts % (Manual) Lymphocytes % (Manual) Eosinophils % (Manual) Seg Neutrophils # Lymphocytes # (Manual) Eosinophils # (Manual) PT INR D-Dimer POC ABG pH POC ABG pCO2 POC ABG pO2 ABG pO2 ABG HCO3 ABG Base Excess ABG Hemoglobin Oxyhemoglobin Sodium Potassium Chloride Carbon Dioxide BUN Creatinine Glucose POC Glucose 134 H 135 H 135 H Calcium Phosphorus Magnesium ALT Alkaline Phosphatase Total Creatine Kinase CK-MB (CK-2) Rel Index Troponin T Albumin LDL Cholesterol Direct PTH Intact Salicylates Acetaminophen Crossmatch 03/06/19 03/06/19 03/06/19 00:16 13:05 18:09 WBC RBC Hgb Hct MCV MCH MCHC RDW Plt Count Lymph % (Auto) [place] % (Auto) Eos % (Auto) Baso % (Auto) Lymph # [place] # Eos # Baso # Seg Neutrophils % Seg Neuts % (Manual) Lymphocytes % (Manual) Eosinophils % (Manual) Seg Neutrophils # Lymphocytes # (Manual) Eosinophils # (Manual) PT INR D-Dimer POC ABG pH POC ABG pCO2 POC ABG pO2 ABG pO2 ABG HCO3 ABG Base Excess ABG Hemoglobin Oxyhemoglobin Sodium Potassium Chloride Carbon Dioxide BUN Creatinine Glucose POC Glucose 117 H 113 H 131 H Calcium Phosphorus Magnesium ALT Alkaline Phosphatase Total Creatine Kinase CK-MB (CK-2) Rel Index Troponin T Albumin LDL Cholesterol Direct PTH Intact Salicylates Acetaminophen Crossmatch 03/07/19 03/08/19 03/08/19 05:25 05:33 16:00 WBC RBC 2.44 L Hgb 6.6 L Hct 20.8 L MCV MCH 27 L MCHC RDW 19.2 H Plt Count Lymph % (Auto) [place] % (Auto) Eos % (Auto) 8.6 H Baso % (Auto) Lymph # 0.8 L [place] # Eos # 0.5 H Baso # Seg Neutrophils % 70.7 H Seg Neuts % (Manual) Lymphocytes % (Manual) Eosinophils % (Manual) Seg Neutrophils # Lymphocytes # (Manual) Eosinophils # (Manual) PT INR D-Dimer POC ABG pH POC ABG pCO2 POC ABG pO2 ABG pO2 ABG HCO3 ABG Base Excess ABG Hemoglobin Oxyhemoglobin Sodium Potassium Chloride Carbon Dioxide BUN Creatinine Glucose POC Glucose 106 H 108 H Calcium Phosphorus Magnesium ALT Alkaline Phosphatase Total Creatine Kinase CK-MB (CK-2) Rel Index Troponin T Albumin LDL Cholesterol Direct PTH Intact Salicylates Acetaminophen Crossmatch 03/08/19 03/08/19 03/08/19 16:00 18:38 Unknown WBC RBC Hgb Hct MCV MCH MCHC RDW Plt Count Lymph % (Auto) [place] % (Auto) Eos % (Auto) Baso % (Auto) Lymph # [place] # Eos # Baso # Seg Neutrophils % Seg Neuts % (Manual) Lymphocytes % (Manual) Eosinophils % (Manual) Seg Neutrophils # Lymphocytes # (Manual) Eosinophils # (Manual) PT INR D-Dimer POC ABG pH POC ABG pCO2 POC ABG pO2 ABG pO2 ABG HCO3 ABG Base Excess ABG Hemoglobin Oxyhemoglobin Sodium Potassium 5.4 H D Chloride Carbon Dioxide BUN 47 H Creatinine 2.6 H Glucose POC Glucose 123 H Calcium Phosphorus Magnesium ALT < 5 L Alkaline Phosphatase Total Creatine Kinase CK-MB (CK-2) Rel Index Troponin T Albumin 2.2 L LDL Cholesterol Direct PTH Intact Salicylates Acetaminophen Crossmatch See Detail 03/09/19 03/09/19 03/09/19 10:48 12:28 13:53 WBC RBC 2.85 L Hgb 7.7 L Hct 24.2 L MCV MCH 27 L MCHC RDW 18.7 H Plt Count Lymph % (Auto) [place] % (Auto) Eos % (Auto) Baso % (Auto) Lymph # [place] # Eos # Baso # Seg Neutrophils % Seg Neuts % (Manual) Lymphocytes % (Manual) Eosinophils % (Manual) Seg Neutrophils # Lymphocytes # (Manual) Eosinophils # (Manual) PT INR D-Dimer POC ABG pH POC ABG pCO2 POC ABG pO2 ABG pO2 ABG HCO3 30.5 H ABG Base Excess 5.6 H ABG Hemoglobin 8.1 L Oxyhemoglobin 93.8 L Sodium Potassium Chloride Carbon Dioxide BUN Creatinine Glucose POC Glucose 114 H Calcium Phosphorus Magnesium ALT Alkaline Phosphatase Total Creatine Kinase CK-MB (CK-2) Rel Index Troponin T Albumin LDL Cholesterol Direct PTH Intact Salicylates Acetaminophen Crossmatch 03/09/19 03/09/19 03/10/19 17:58 23:53 12:01 WBC RBC Hgb Hct MCV MCH MCHC RDW Plt Count Lymph % (Auto) [place] % (Auto) Eos % (Auto) Baso % (Auto) Lymph # [place] # Eos # Baso # Seg Neutrophils % Seg Neuts % (Manual) Lymphocytes % (Manual) Eosinophils % (Manual) Seg Neutrophils # Lymphocytes # (Manual) Eosinophils # (Manual) PT INR D-Dimer POC ABG pH POC ABG pCO2 POC ABG pO2 ABG pO2 ABG HCO3 ABG Base Excess ABG Hemoglobin Oxyhemoglobin Sodium Potassium Chloride Carbon Dioxide BUN Creatinine Glucose POC Glucose 108 H 128 H 144 H Calcium Phosphorus Magnesium ALT Alkaline Phosphatase Total Creatine Kinase CK-MB (CK-2) Rel Index Troponin T Albumin LDL Cholesterol Direct PTH Intact Salicylates Acetaminophen Crossmatch 03/10/19 03/11/19 03/11/19 16:50 00:24 05:02 WBC RBC Hgb Hct MCV MCH MCHC RDW Plt Count Lymph % (Auto) [place] % (Auto) Eos % (Auto) Baso % (Auto) Lymph # [place] # Eos # Baso # Seg Neutrophils % Seg Neuts % (Manual) Lymphocytes % (Manual) Eosinophils % (Manual) Seg Neutrophils # Lymphocytes # (Manual) Eosinophils # (Manual) PT INR D-Dimer POC ABG pH POC ABG pCO2 POC ABG pO2 ABG pO2 ABG HCO3 ABG Base Excess ABG Hemoglobin Oxyhemoglobin Sodium Potassium Chloride Carbon Dioxide BUN Creatinine Glucose POC Glucose 147 H 123 H 120 H Calcium Phosphorus Magnesium ALT Alkaline Phosphatase Total Creatine Kinase CK-MB (CK-2) Rel Index Troponin T Albumin LDL Cholesterol Direct PTH Intact Salicylates Acetaminophen Crossmatch 03/11/19 03/11/19 03/11/19 11:56 12:20 18:37 WBC RBC Hgb Hct MCV MCH MCHC RDW Plt Count Lymph % (Auto) [place] % (Auto) Eos % (Auto) Baso % (Auto) Lymph # [place] # Eos # Baso # Seg Neutrophils % Seg Neuts % (Manual) Lymphocytes % (Manual) Eosinophils % (Manual) Seg Neutrophils # Lymphocytes # (Manual) Eosinophils # (Manual) PT INR D-Dimer POC ABG pH POC ABG pCO2 POC ABG pO2 ABG pO2 ABG HCO3 ABG Base Excess ABG Hemoglobin Oxyhemoglobin Sodium Potassium 5.2 H Chloride Carbon Dioxide BUN Creatinine Glucose POC Glucose 123 H 125 H Calcium Phosphorus Magnesium ALT Alkaline Phosphatase Total Creatine Kinase CK-MB (CK-2) Rel Index Troponin T Albumin LDL Cholesterol Direct PTH Intact Salicylates Acetaminophen Crossmatch 03/11/19 03/12/19 03/12/19 22:52 12:04 18:25 WBC RBC Hgb Hct MCV MCH MCHC RDW Plt Count Lymph % (Auto) [place] % (Auto) Eos % (Auto) Baso % (Auto) Lymph # [place] # Eos # Baso # Seg Neutrophils % Seg Neuts % (Manual) Lymphocytes % (Manual) Eosinophils % (Manual) Seg Neutrophils # Lymphocytes # (Manual) Eosinophils # (Manual) PT INR D-Dimer POC ABG pH POC ABG pCO2 POC ABG pO2 ABG pO2 ABG HCO3 ABG Base Excess ABG Hemoglobin Oxyhemoglobin Sodium Potassium Chloride Carbon Dioxide BUN Creatinine Glucose POC Glucose 110 H 106 H 118 H Calcium Phosphorus Magnesium ALT Alkaline Phosphatase Total Creatine Kinase CK-MB (CK-2) Rel Index Troponin T Albumin LDL Cholesterol Direct PTH Intact Salicylates Acetaminophen Crossmatch 03/12/19 03/13/19 03/13/19 23:36 04:38 04:38 WBC RBC 2.95 L Hgb 7.9 L Hct 24.9 L MCV MCH 27 L MCHC RDW 19.9 H Plt Count Lymph % (Auto) 11.1 L [place] % (Auto) 8.1 H Eos % (Auto) 4.4 H Baso % (Auto) Lymph # 0.9 L [place] # Eos # Baso # Seg Neutrophils % 75.4 H Seg Neuts % (Manual) Lymphocytes % (Manual) Eosinophils % (Manual) Seg Neutrophils # Lymphocytes # (Manual) Eosinophils # (Manual) PT INR D-Dimer POC ABG pH POC ABG pCO2 POC ABG pO2 ABG pO2 ABG HCO3 ABG Base Excess ABG Hemoglobin Oxyhemoglobin Sodium 136 L Potassium 5.1 H Chloride 93.8 L Carbon Dioxide BUN 48 H Creatinine 2.7 H Glucose 102 H POC Glucose 115 H Calcium Phosphorus Magnesium ALT < 5 L Alkaline Phosphatase 143 H Total Creatine Kinase CK-MB (CK-2) Rel Index Troponin T Albumin 2.5 L LDL Cholesterol Direct PTH Intact Salicylates Acetaminophen Crossmatch 03/13/19 03/13/19 03/13/19 05:33 13:37 18:03 WBC RBC Hgb Hct MCV MCH MCHC RDW Plt Count Lymph % (Auto) [place] % (Auto) Eos % (Auto) Baso % (Auto) Lymph # [place] # Eos # Baso # Seg Neutrophils % Seg Neuts % (Manual) Lymphocytes % (Manual) Eosinophils % (Manual) Seg Neutrophils # Lymphocytes # (Manual) Eosinophils # (Manual) PT INR D-Dimer POC ABG pH POC ABG pCO2 POC ABG pO2 ABG pO2 ABG HCO3 ABG Base Excess ABG Hemoglobin Oxyhemoglobin Sodium Potassium Chloride Carbon Dioxide BUN Creatinine Glucose POC Glucose 140 H 150 H 158 H Calcium Phosphorus Magnesium ALT Alkaline Phosphatase Total Creatine Kinase CK-MB (CK-2) Rel Index Troponin T Albumin LDL Cholesterol Direct PTH Intact Salicylates Acetaminophen Crossmatch 03/13/19 03/14/19 03/14/19 23:32 05:24 12:20 WBC RBC Hgb Hct MCV MCH MCHC RDW Plt Count Lymph % (Auto) [place] % (Auto) Eos % (Auto) Baso % (Auto) Lymph # [place] # Eos # Baso # Seg Neutrophils % Seg Neuts % (Manual) Lymphocytes % (Manual) Eosinophils % (Manual) Seg Neutrophils # Lymphocytes # (Manual) Eosinophils # (Manual) PT INR D-Dimer POC ABG pH POC ABG pCO2 POC ABG pO2 ABG pO2 ABG HCO3 ABG Base Excess ABG Hemoglobin Oxyhemoglobin Sodium Potassium Chloride Carbon Dioxide BUN Creatinine Glucose POC Glucose 162 H 146 H 127 H Calcium Phosphorus Magnesium ALT Alkaline Phosphatase Total Creatine Kinase CK-MB (CK-2) Rel Index Troponin T Albumin LDL Cholesterol Direct PTH Intact Salicylates Acetaminophen Crossmatch 03/14/19 03/14/19 03/15/19 18:05 23:57 04:38 WBC 12.8 H RBC 3.11 L Hgb 8.1 L Hct 26.5 L MCV MCH 26 L MCHC 31 L RDW 19.7 H Plt Count Lymph % (Auto) 4.4 L [place] % (Auto) 7.4 H Eos % (Auto) Baso % (Auto) Lymph # 0.6 L [place] # 0.9 H Eos # Baso # Seg Neutrophils % 87.3 H Seg Neuts % (Manual) Lymphocytes % (Manual) Eosinophils % (Manual) Seg Neutrophils # 11.2 H Lymphocytes # (Manual) Eosinophils # (Manual) PT INR D-Dimer POC ABG pH POC ABG pCO2 POC ABG pO2 ABG pO2 ABG HCO3 ABG Base Excess ABG Hemoglobin Oxyhemoglobin Sodium Potassium Chloride Carbon Dioxide BUN Creatinine Glucose POC Glucose 142 H 155 H Calcium Phosphorus Magnesium ALT Alkaline Phosphatase Total Creatine Kinase CK-MB (CK-2) Rel Index Troponin T Albumin LDL Cholesterol Direct PTH Intact Salicylates Acetaminophen Crossmatch 03/15/19 03/15/19 03/15/19 04:38 05:31 11:32 WBC RBC Hgb Hct MCV MCH MCHC RDW Plt Count Lymph % (Auto) [place] % (Auto) Eos % (Auto) Baso % (Auto) Lymph # [place] # Eos # Baso # Seg Neutrophils % Seg Neuts % (Manual) Lymphocytes % (Manual) Eosinophils % (Manual) Seg Neutrophils # Lymphocytes # (Manual) Eosinophils # (Manual) PT INR D-Dimer POC ABG pH POC ABG pCO2 POC ABG pO2 ABG pO2 ABG HCO3 ABG Base Excess ABG Hemoglobin Oxyhemoglobin Sodium 135 L Potassium Chloride 91.9 L Carbon Dioxide BUN 54 H Creatinine 2.8 H Glucose 128 H POC Glucose 160 H 109 H Calcium 11.1 H Phosphorus Magnesium ALT Alkaline Phosphatase 161 H Total Creatine Kinase CK-MB (CK-2) Rel Index Troponin T Albumin 2.3 L LDL Cholesterol Direct PTH Intact Salicylates Acetaminophen Crossmatch 03/15/19 03/15/19 03/16/19 18:15 23:41 05:40 WBC RBC Hgb Hct MCV MCH MCHC RDW Plt Count Lymph % (Auto) [place] % (Auto) Eos % (Auto) Baso % (Auto) Lymph # [place] # Eos # Baso # Seg Neutrophils % Seg Neuts % (Manual) Lymphocytes % (Manual) Eosinophils % (Manual) Seg Neutrophils # Lymphocytes # (Manual) Eosinophils # (Manual) PT INR D-Dimer POC ABG pH POC ABG pCO2 POC ABG pO2 ABG pO2 ABG HCO3 ABG Base Excess ABG Hemoglobin Oxyhemoglobin Sodium Potassium Chloride Carbon Dioxide BUN Creatinine Glucose POC Glucose 151 H 110 H 163 H Calcium Phosphorus Magnesium ALT Alkaline Phosphatase Total Creatine Kinase CK-MB (CK-2) Rel Index Troponin T Albumin LDL Cholesterol Direct PTH Intact Salicylates Acetaminophen Crossmatch 03/16/19 03/16/19 03/16/19 11:55 17:04 23:58 WBC RBC Hgb Hct MCV MCH MCHC RDW Plt Count Lymph % (Auto) [place] % (Auto) Eos % (Auto) Baso % (Auto) Lymph # [place] # Eos # Baso # Seg Neutrophils % Seg Neuts % (Manual) Lymphocytes % (Manual) Eosinophils % (Manual) Seg Neutrophils # Lymphocytes # (Manual) Eosinophils # (Manual) PT INR D-Dimer POC ABG pH POC ABG pCO2 POC ABG pO2 ABG pO2 ABG HCO3 ABG Base Excess ABG Hemoglobin Oxyhemoglobin Sodium Potassium Chloride Carbon Dioxide BUN Creatinine Glucose POC Glucose 114 H 147 H 192 H Calcium Phosphorus Magnesium ALT Alkaline Phosphatase Total Creatine Kinase CK-MB (CK-2) Rel Index Troponin T Albumin LDL Cholesterol Direct PTH Intact Salicylates Acetaminophen Crossmatch 03/17/19 03/17/19 03/17/19 05:53 11:17 17:01 WBC RBC Hgb Hct MCV MCH MCHC RDW Plt Count Lymph % (Auto) [place] % (Auto) Eos % (Auto) Baso % (Auto) Lymph # [place] # Eos # Baso # Seg Neutrophils % Seg Neuts % (Manual) Lymphocytes % (Manual) Eosinophils % (Manual) Seg Neutrophils # Lymphocytes # (Manual) Eosinophils # (Manual) PT INR D-Dimer POC ABG pH POC ABG pCO2 POC ABG pO2 ABG pO2 ABG HCO3 ABG Base Excess ABG Hemoglobin Oxyhemoglobin Sodium Potassium Chloride Carbon Dioxide BUN Creatinine Glucose POC Glucose 151 H 161 H 152 H Calcium Phosphorus Magnesium ALT Alkaline Phosphatase Total Creatine Kinase CK-MB (CK-2) Rel Index Troponin T Albumin LDL Cholesterol Direct PTH Intact Salicylates Acetaminophen Crossmatch 03/17/19 03/18/19 03/18/19 21:47 04:15 04:44 WBC RBC Hgb Hct MCV MCH MCHC RDW Plt Count Lymph % (Auto) [place] % (Auto) Eos % (Auto) Baso % (Auto) Lymph # [place] # Eos # Baso # Seg Neutrophils % Seg Neuts % (Manual) Lymphocytes % (Manual) Eosinophils % (Manual) Seg Neutrophils # Lymphocytes # (Manual) Eosinophils # (Manual) PT INR D-Dimer POC ABG pH POC ABG pCO2 POC ABG pO2 ABG pO2 102.8 H ABG HCO3 28.3 H ABG Base Excess ABG Hemoglobin 10.4 L Oxyhemoglobin 94.5 L Sodium Potassium Chloride Carbon Dioxide BUN Creatinine Glucose POC Glucose 170 H 150 H Calcium Phosphorus Magnesium ALT Alkaline Phosphatase Total Creatine Kinase CK-MB (CK-2) Rel Index Troponin T Albumin LDL Cholesterol Direct PTH Intact Salicylates Acetaminophen Crossmatch 03/18/19 03/18/19 03/18/19 06:38 12:12 17:47 WBC RBC Hgb Hct MCV MCH MCHC RDW Plt Count Lymph % (Auto) [place] % (Auto) Eos % (Auto) Baso % (Auto) Lymph # [place] # Eos # Baso # Seg Neutrophils % Seg Neuts % (Manual) Lymphocytes % (Manual) Eosinophils % (Manual) Seg Neutrophils # Lymphocytes # (Manual) Eosinophils # (Manual) PT INR D-Dimer POC ABG pH 7.510 H POC ABG pCO2 POC ABG pO2 164 H ABG pO2 ABG HCO3 ABG Base Excess ABG Hemoglobin Oxyhemoglobin Sodium Potassium Chloride Carbon Dioxide BUN Creatinine Glucose POC Glucose 145 H 149 H Calcium Phosphorus Magnesium ALT Alkaline Phosphatase Total Creatine Kinase CK-MB (CK-2) Rel Index Troponin T Albumin LDL Cholesterol Direct PTH Intact Salicylates Acetaminophen Crossmatch 03/18/19 03/19/19 03/19/19 23:25 01:11 04:23 WBC 15.6 H RBC 2.51 L Hgb 6.5 L Hct 21.6 L MCV MCH 26 L MCHC 30 L RDW 19.8 H Plt Count Lymph % (Auto) 6.0 L [place] % (Auto) Eos % (Auto) Baso % (Auto) Lymph # 0.9 L [place] # 1.0 H Eos # Baso # Seg Neutrophils % 85.5 H Seg Neuts % (Manual) Lymphocytes % (Manual) Eosinophils % (Manual) Seg Neutrophils # 13.4 H Lymphocytes # (Manual) Eosinophils # (Manual) PT INR D-Dimer POC ABG pH POC ABG pCO2 POC ABG pO2 ABG pO2 78.3 L ABG HCO3 30.7 H ABG Base Excess 5.8 H ABG Hemoglobin 5.8 L Oxyhemoglobin 94.6 L Sodium Potassium Chloride Carbon Dioxide BUN Creatinine Glucose POC Glucose 190 H Calcium Phosphorus Magnesium ALT Alkaline Phosphatase Total Creatine Kinase CK-MB (CK-2) Rel Index Troponin T Albumin LDL Cholesterol Direct PTH Intact Salicylates Acetaminophen Crossmatch 03/19/19 03/19/19 03/19/19 05:22 05:35 08:54 WBC RBC Hgb Hct MCV MCH MCHC RDW Plt Count Lymph % (Auto) [place] % (Auto) Eos % (Auto) Baso % (Auto) Lymph # [place] # Eos # Baso # Seg Neutrophils % Seg Neuts % (Manual) Lymphocytes % (Manual) Eosinophils % (Manual) Seg Neutrophils # Lymphocytes # (Manual) Eosinophils # (Manual) PT INR D-Dimer POC ABG pH POC ABG pCO2 POC ABG pO2 ABG pO2 ABG HCO3 ABG Base Excess ABG Hemoglobin Oxyhemoglobin Sodium Potassium Chloride Carbon Dioxide BUN Creatinine Glucose POC Glucose 167 H Calcium Phosphorus Magnesium ALT Alkaline Phosphatase Total Creatine Kinase CK-MB (CK-2) Rel Index Troponin T Albumin LDL Cholesterol Direct PTH Intact Salicylates Acetaminophen Crossmatch See Detail See Detail 03/19/19 03/19/19 03/19/19 12:36 17:02 23:25 WBC RBC Hgb Hct MCV MCH MCHC RDW Plt Count Lymph % (Auto) [place] % (Auto) Eos % (Auto) Baso % (Auto) Lymph # [place] # Eos # Baso # Seg Neutrophils % Seg Neuts % (Manual) Lymphocytes % (Manual) Eosinophils % (Manual) Seg Neutrophils # Lymphocytes # (Manual) Eosinophils # (Manual) PT INR D-Dimer POC ABG pH POC ABG pCO2 POC ABG pO2 ABG pO2 ABG HCO3 ABG Base Excess ABG Hemoglobin Oxyhemoglobin Sodium Potassium Chloride Carbon Dioxide BUN Creatinine Glucose POC Glucose 167 H 135 H 136 H Calcium Phosphorus Magnesium ALT Alkaline Phosphatase Total Creatine Kinase CK-MB (CK-2) Rel Index Troponin T Albumin LDL Cholesterol Direct PTH Intact Salicylates Acetaminophen Crossmatch 03/20/19 03/20/19 03/20/19 05:38 08:40 08:40 WBC RBC 2.61 L Hgb 7.1 L Hct 22.0 L MCV MCH 27 L MCHC RDW 19.6 H Plt Count Lymph % (Auto) 8.2 L [place] % (Auto) 8.3 H Eos % (Auto) 5.7 H Baso % (Auto) Lymph # 0.8 L [place] # Eos # 0.5 H Baso # Seg Neutrophils % 77.3 H Seg Neuts % (Manual) Lymphocytes % (Manual) Eosinophils % (Manual) Seg Neutrophils # Lymphocytes # (Manual) Eosinophils # (Manual) PT INR D-Dimer POC ABG pH POC ABG pCO2 POC ABG pO2 ABG pO2 ABG HCO3 ABG Base Excess ABG Hemoglobin Oxyhemoglobin Sodium Potassium Chloride 95.9 L Carbon Dioxide BUN 69 H Creatinine 2.8 H Glucose 115 H POC Glucose 134 H Calcium 10.5 H Phosphorus Magnesium ALT Alkaline Phosphatase Total Creatine Kinase CK-MB (CK-2) Rel Index Troponin T Albumin LDL Cholesterol Direct PTH Intact Salicylates Acetaminophen Crossmatch 03/20/19 03/20/19 03/20/19 12:13 18:04 23:49 WBC RBC Hgb Hct MCV MCH MCHC RDW Plt Count Lymph % (Auto) [place] % (Auto) Eos % (Auto) Baso % (Auto) Lymph # [place] # Eos # Baso # Seg Neutrophils % Seg Neuts % (Manual) Lymphocytes % (Manual) Eosinophils % (Manual) Seg Neutrophils # Lymphocytes # (Manual) Eosinophils # (Manual) PT INR D-Dimer POC ABG pH POC ABG pCO2 POC ABG pO2 ABG pO2 ABG HCO3 ABG Base Excess ABG Hemoglobin Oxyhemoglobin Sodium Potassium Chloride Carbon Dioxide BUN Creatinine Glucose POC Glucose 144 H 165 H 172 H Calcium Phosphorus Magnesium ALT Alkaline Phosphatase Total Creatine Kinase CK-MB (CK-2) Rel Index Troponin T Albumin LDL Cholesterol Direct PTH Intact Salicylates Acetaminophen Crossmatch 03/21/19 03/21/19 03/21/19 05:00 06:29 06:30 WBC RBC 2.72 L Hgb 7.4 L Hct 22.9 L MCV MCH 27 L MCHC RDW 19.4 H Plt Count Lymph % (Auto) [place] % (Auto) Eos % (Auto) Baso % (Auto) Lymph # [place] # Eos # Baso # Seg Neutrophils % Seg Neuts % (Manual) 81.0 H Lymphocytes % (Manual) 8.0 L Eosinophils % (Manual) 8.0 H Seg Neutrophils # Lymphocytes # (Manual) 0.7 L Eosinophils # (Manual) 0.7 H PT INR D-Dimer POC ABG pH POC ABG pCO2 POC ABG pO2 ABG pO2 ABG HCO3 ABG Base Excess ABG Hemoglobin Oxyhemoglobin Sodium Potassium Chloride Carbon Dioxide 33 H BUN 43 H Creatinine 1.7 H Glucose 145 H POC Glucose 156 H Calcium Phosphorus Magnesium ALT Alkaline Phosphatase 212 H Total Creatine Kinase CK-MB (CK-2) Rel Index Troponin T Albumin 2.2 L LDL Cholesterol Direct PTH Intact Salicylates Acetaminophen Crossmatch 03/21/19 03/21/19 03/22/19 12:02 18:07 00:21 WBC RBC Hgb Hct MCV MCH MCHC RDW Plt Count Lymph % (Auto) [place] % (Auto) Eos % (Auto) Baso % (Auto) Lymph # [place] # Eos # Baso # Seg Neutrophils % Seg Neuts % (Manual) Lymphocytes % (Manual) Eosinophils % (Manual) Seg Neutrophils # Lymphocytes # (Manual) Eosinophils # (Manual) PT INR D-Dimer POC ABG pH POC ABG pCO2 POC ABG pO2 ABG pO2 ABG HCO3 ABG Base Excess ABG Hemoglobin Oxyhemoglobin Sodium Potassium Chloride Carbon Dioxide BUN Creatinine Glucose POC Glucose 163 H 144 H 153 H Calcium Phosphorus Magnesium ALT Alkaline Phosphatase Total Creatine Kinase CK-MB (CK-2) Rel Index Troponin T Albumin LDL Cholesterol Direct PTH Intact Salicylates Acetaminophen Crossmatch 03/22/19 03/22/19 03/22/19 05:23 05:23 05:31 WBC RBC 2.58 L Hgb 7.1 L Hct 21.8 L MCV MCH 27 L MCHC RDW 19.2 H Plt Count Lymph % (Auto) [place] % (Auto) Eos % (Auto) Baso % (Auto) Lymph # [place] # Eos # Baso # Seg Neutrophils % Seg Neuts % (Manual) Lymphocytes % (Manual) Eosinophils % (Manual) Seg Neutrophils # Lymphocytes # (Manual) Eosinophils # (Manual) PT INR D-Dimer POC ABG pH POC ABG pCO2 POC ABG pO2 ABG pO2 ABG HCO3 ABG Base Excess ABG Hemoglobin Oxyhemoglobin Sodium 147 H Potassium Chloride Carbon Dioxide BUN 68 H Creatinine 2.5 H Glucose POC Glucose 116 H Calcium 10.3 H Phosphorus Magnesium ALT Alkaline Phosphatase Total Creatine Kinase CK-MB (CK-2) Rel Index Troponin T Albumin LDL Cholesterol Direct PTH Intact Salicylates Acetaminophen Crossmatch 03/22/19 03/22/19 03/22/19 08:48 12:37 17:35 WBC RBC Hgb Hct MCV MCH MCHC RDW Plt Count Lymph % (Auto) [place] % (Auto) Eos % (Auto) Baso % (Auto) Lymph # [place] # Eos # Baso # Seg Neutrophils % Seg Neuts % (Manual) Lymphocytes % (Manual) Eosinophils % (Manual) Seg Neutrophils # Lymphocytes # (Manual) Eosinophils # (Manual) PT INR D-Dimer POC ABG pH POC ABG pCO2 POC ABG pO2 ABG pO2 ABG HCO3 ABG Base Excess ABG Hemoglobin Oxyhemoglobin Sodium Potassium Chloride Carbon Dioxide BUN Creatinine Glucose POC Glucose 143 H 155 H Calcium Phosphorus Magnesium ALT Alkaline Phosphatase Total Creatine Kinase CK-MB (CK-2) Rel Index Troponin T Albumin LDL Cholesterol Direct PTH Intact Salicylates Acetaminophen Crossmatch See Detail 03/23/19 03/23/19 03/23/19 00:07 04:00 04:00 WBC 11.2 H RBC 2.32 L Hgb 6.4 L Hct 19.7 L* MCV MCH MCHC RDW 19.4 H Plt Count Lymph % (Auto) [place] % (Auto) Eos % (Auto) Baso % (Auto) Lymph # [place] # Eos # Baso # Seg Neutrophils % Seg Neuts % (Manual) Lymphocytes % (Manual) Eosinophils % (Manual) Seg Neutrophils # Lymphocytes # (Manual) Eosinophils # (Manual) PT INR D-Dimer POC ABG pH POC ABG pCO2 POC ABG pO2 ABG pO2 ABG HCO3 ABG Base Excess ABG Hemoglobin Oxyhemoglobin Sodium 147 H Potassium 5.2 H Chloride Carbon Dioxide BUN 86 H Creatinine 3.2 H Glucose 128 H POC Glucose 135 H Calcium 10.3 H Phosphorus Magnesium ALT Alkaline Phosphatase Total Creatine Kinase CK-MB (CK-2) Rel Index Troponin T Albumin LDL Cholesterol Direct PTH Intact Salicylates Acetaminophen Crossmatch 03/23/19 03/23/19 03/23/19 05:21 11:36 11:36 WBC RBC Hgb 7.9 L Hct 25.0 L MCV MCH MCHC RDW Plt Count Lymph % (Auto) [place] % (Auto) Eos % (Auto) Baso % (Auto) Lymph # [place] # Eos # Baso # Seg Neutrophils % Seg Neuts % (Manual) Lymphocytes % (Manual) Eosinophils % (Manual) Seg Neutrophils # Lymphocytes # (Manual) Eosinophils # (Manual) PT INR D-Dimer POC ABG pH POC ABG pCO2 POC ABG pO2 ABG pO2 ABG HCO3 ABG Base Excess ABG Hemoglobin Oxyhemoglobin Sodium Potassium Chloride Carbon Dioxide BUN Creatinine Glucose POC Glucose 132 H 147 H Calcium Phosphorus Magnesium ALT Alkaline Phosphatase Total Creatine Kinase CK-MB (CK-2) Rel Index Troponin T Albumin LDL Cholesterol Direct PTH Intact Salicylates Acetaminophen Crossmatch 03/23/19 03/24/19 03/24/19 17:31 01:22 04:20 WBC 12.2 H RBC 3.05 L Hgb 8.3 L Hct 25.9 L MCV MCH 27 L MCHC RDW 18.7 H Plt Count Lymph % (Auto) [place] % (Auto) Eos % (Auto) Baso % (Auto) Lymph # [place] # Eos # Baso # Seg Neutrophils % Seg Neuts % (Manual) Lymphocytes % (Manual) Eosinophils % (Manual) Seg Neutrophils # Lymphocytes # (Manual) Eosinophils # (Manual) PT INR D-Dimer POC ABG pH POC ABG pCO2 POC ABG pO2 ABG pO2 ABG HCO3 ABG Base Excess ABG Hemoglobin Oxyhemoglobin Sodium Potassium Chloride Carbon Dioxide BUN Creatinine Glucose POC Glucose 182 H 113 H Calcium Phosphorus Magnesium ALT Alkaline Phosphatase Total Creatine Kinase CK-MB (CK-2) Rel Index Troponin T Albumin LDL Cholesterol Direct PTH Intact Salicylates Acetaminophen Crossmatch 03/24/19 03/24/19 03/24/19 04:20 11:59 18:14 WBC RBC Hgb Hct MCV MCH MCHC RDW Plt Count Lymph % (Auto) [place] % (Auto) Eos % (Auto) Baso % (Auto) Lymph # [place] # Eos # Baso # Seg Neutrophils % Seg Neuts % (Manual) Lymphocytes % (Manual) Eosinophils % (Manual) Seg Neutrophils # Lymphocytes # (Manual) Eosinophils # (Manual) PT INR D-Dimer POC ABG pH POC ABG pCO2 POC ABG pO2 ABG pO2 ABG HCO3 ABG Base Excess ABG Hemoglobin Oxyhemoglobin Sodium Potassium Chloride 94.8 L Carbon Dioxide 32 H BUN 53 H Creatinine 2.3 H Glucose POC Glucose 163 H 134 H Calcium Phosphorus Magnesium ALT Alkaline Phosphatase Total Creatine Kinase CK-MB (CK-2) Rel Index Troponin T Albumin LDL Cholesterol Direct PTH Intact Salicylates Acetaminophen Crossmatch 03/24/19 03/25/19 03/25/19 23:15 05:52 12:02 WBC RBC Hgb Hct MCV MCH MCHC RDW Plt Count Lymph % (Auto) [place] % (Auto) Eos % (Auto) Baso % (Auto) Lymph # [place] # Eos # Baso # Seg Neutrophils % Seg Neuts % (Manual) Lymphocytes % (Manual) Eosinophils % (Manual) Seg Neutrophils # Lymphocytes # (Manual) Eosinophils # (Manual) PT INR D-Dimer POC ABG pH POC ABG pCO2 POC ABG pO2 ABG pO2 ABG HCO3 ABG Base Excess ABG Hemoglobin Oxyhemoglobin Sodium Potassium Chloride Carbon Dioxide BUN Creatinine Glucose POC Glucose 129 H 123 H 125 H Calcium Phosphorus Magnesium ALT Alkaline Phosphatase Total Creatine Kinase CK-MB (CK-2) Rel Index Troponin T Albumin LDL Cholesterol Direct PTH Intact Salicylates Acetaminophen Crossmatch 03/25/19 03/26/19 03/26/19 17:27 00:30 05:35 WBC RBC 3.01 L Hgb 8.1 L Hct 25.7 L MCV MCH 27 L MCHC RDW 19.2 H Plt Count Lymph % (Auto) 11.4 L [place] % (Auto) Eos % (Auto) 8.0 H Baso % (Auto) Lymph # 1.0 L [place] # Eos # 0.7 H Baso # Seg Neutrophils % 73.9 H Seg Neuts % (Manual) Lymphocytes % (Manual) Eosinophils % (Manual) Seg Neutrophils # Lymphocytes # (Manual) Eosinophils # (Manual) PT INR D-Dimer POC ABG pH POC ABG pCO2 POC ABG pO2 ABG pO2 ABG HCO3 ABG Base Excess ABG Hemoglobin Oxyhemoglobin Sodium Potassium Chloride Carbon Dioxide BUN Creatinine Glucose POC Glucose 130 H 129 H Calcium Phosphorus Magnesium ALT Alkaline Phosphatase Total Creatine Kinase CK-MB (CK-2) Rel Index Troponin T Albumin LDL Cholesterol Direct PTH Intact Salicylates Acetaminophen Crossmatch 03/26/19 03/26/19 03/26/19 05:35 05:45 12:16 WBC RBC Hgb Hct MCV MCH MCHC RDW Plt Count Lymph % (Auto) [place] % (Auto) Eos % (Auto) Baso % (Auto) Lymph # [place] # Eos # Baso # Seg Neutrophils % Seg Neuts % (Manual) Lymphocytes % (Manual) Eosinophils % (Manual) Seg Neutrophils # Lymphocytes # (Manual) Eosinophils # (Manual) PT INR D-Dimer POC ABG pH POC ABG pCO2 POC ABG pO2 ABG pO2 ABG HCO3 ABG Base Excess ABG Hemoglobin Oxyhemoglobin Sodium Potassium Chloride 94.9 L Carbon Dioxide 31 H BUN 44 H Creatinine 2.0 H Glucose POC Glucose 118 H 107 H Calcium Phosphorus Magnesium ALT Alkaline Phosphatase Total Creatine Kinase CK-MB (CK-2) Rel Index Troponin T Albumin LDL Cholesterol Direct PTH Intact Salicylates Acetaminophen Crossmatch 03/26/19 03/27/19 03/27/19 17:56 00:36 05:37 WBC RBC Hgb Hct MCV MCH MCHC RDW Plt Count Lymph % (Auto) [place] % (Auto) Eos % (Auto) Baso % (Auto) Lymph # [place] # Eos # Baso # Seg Neutrophils % Seg Neuts % (Manual) Lymphocytes % (Manual) Eosinophils % (Manual) Seg Neutrophils # Lymphocytes # (Manual) Eosinophils # (Manual) PT INR D-Dimer POC ABG pH POC ABG pCO2 POC ABG pO2 ABG pO2 ABG HCO3 ABG Base Excess ABG Hemoglobin Oxyhemoglobin Sodium Potassium Chloride Carbon Dioxide BUN Creatinine Glucose POC Glucose 107 H 110 H 122 H Calcium Phosphorus Magnesium ALT Alkaline Phosphatase Total Creatine Kinase CK-MB (CK-2) Rel Index Troponin T Albumin LDL Cholesterol Direct PTH Intact Salicylates Acetaminophen Crossmatch 03/27/19 03/27/19 03/28/19 11:22 18:00 05:17 WBC RBC Hgb Hct MCV MCH MCHC RDW Plt Count Lymph % (Auto) [place] % (Auto) Eos % (Auto) Baso % (Auto) Lymph # [place] # Eos # Baso # Seg Neutrophils % Seg Neuts % (Manual) Lymphocytes % (Manual) Eosinophils % (Manual) Seg Neutrophils # Lymphocytes # (Manual) Eosinophils # (Manual) PT INR D-Dimer POC ABG pH POC ABG pCO2 POC ABG pO2 ABG pO2 ABG HCO3 ABG Base Excess ABG Hemoglobin Oxyhemoglobin Sodium Potassium Chloride Carbon Dioxide BUN Creatinine Glucose POC Glucose 120 H 111 H 107 H Calcium Phosphorus Magnesium ALT Alkaline Phosphatase Total Creatine Kinase CK-MB (CK-2) Rel Index Troponin T Albumin LDL Cholesterol Direct PTH Intact Salicylates Acetaminophen Crossmatch 03/28/19 03/28/19 03/29/19 12:27 18:08 05:47 WBC RBC Hgb Hct MCV MCH MCHC RDW Plt Count Lymph % (Auto) [place] % (Auto) Eos % (Auto) Baso % (Auto) Lymph # [place] # Eos # Baso # Seg Neutrophils % Seg Neuts % (Manual) Lymphocytes % (Manual) Eosinophils % (Manual) Seg Neutrophils # Lymphocytes # (Manual) Eosinophils # (Manual) PT INR D-Dimer POC ABG pH POC ABG pCO2 POC ABG pO2 ABG pO2 ABG HCO3 ABG Base Excess ABG Hemoglobin Oxyhemoglobin Sodium Potassium Chloride Carbon Dioxide BUN Creatinine Glucose POC Glucose 114 H 121 H 112 H Calcium Phosphorus Magnesium ALT Alkaline Phosphatase Total Creatine Kinase CK-MB (CK-2) Rel Index Troponin T Albumin LDL Cholesterol Direct PTH Intact Salicylates Acetaminophen Crossmatch 03/29/19 03/29/19 03/30/19 12:14 18:08 00:31 WBC RBC Hgb Hct MCV MCH MCHC RDW Plt Count Lymph % (Auto) [place] % (Auto) Eos % (Auto) Baso % (Auto) Lymph # [place] # Eos # Baso # Seg Neutrophils % Seg Neuts % (Manual) Lymphocytes % (Manual) Eosinophils % (Manual) Seg Neutrophils # Lymphocytes # (Manual) Eosinophils # (Manual) PT INR D-Dimer POC ABG pH POC ABG pCO2 POC ABG pO2 ABG pO2 ABG HCO3 ABG Base Excess ABG Hemoglobin Oxyhemoglobin Sodium Potassium Chloride Carbon Dioxide BUN Creatinine Glucose POC Glucose 117 H 140 H 114 H Calcium Phosphorus Magnesium ALT Alkaline Phosphatase Total Creatine Kinase CK-MB (CK-2) Rel Index Troponin T Albumin LDL Cholesterol Direct PTH Intact Salicylates Acetaminophen Crossmatch 03/30/19 03/30/19 03/30/19 10:13 10:13 23:53 WBC RBC 2.81 L Hgb 7.7 L Hct 24.3 L MCV MCH 27 L MCHC RDW 19.0 H Plt Count Lymph % (Auto) 12.2 L [place] % (Auto) Eos % (Auto) 7.9 H Baso % (Auto) Lymph # 1.0 L [place] # Eos # 0.6 H Baso # Seg Neutrophils % 72.3 H Seg Neuts % (Manual) Lymphocytes % (Manual) Eosinophils % (Manual) Seg Neutrophils # Lymphocytes # (Manual) Eosinophils # (Manual) PT INR D-Dimer POC ABG pH POC ABG pCO2 POC ABG pO2 ABG pO2 ABG HCO3 ABG Base Excess ABG Hemoglobin Oxyhemoglobin Sodium Potassium 5.1 H Chloride 96.5 L Carbon Dioxide BUN 73 H Creatinine 3.9 H D Glucose POC Glucose 114 H Calcium 10.3 H Phosphorus 6.30 H Magnesium 2.70 H ALT Alkaline Phosphatase 185 H Total Creatine Kinase CK-MB (CK-2) Rel Index Troponin T Albumin 2.6 L LDL Cholesterol Direct PTH Intact Salicylates Acetaminophen Crossmatch 03/31/19 03/31/19 03/31/19 05:45 10:26 10:26 WBC RBC 3.01 L Hgb 8.2 L Hct 26.4 L MCV MCH 27 L MCHC 31 L RDW 20.3 H Plt Count Lymph % (Auto) 13.3 L [place] % (Auto) Eos % (Auto) 7.2 H Baso % (Auto) Lymph # 1.1 L [place] # Eos # 0.6 H Baso # Seg Neutrophils % 72.1 H Seg Neuts % (Manual) Lymphocytes % (Manual) Eosinophils % (Manual) Seg Neutrophils # Lymphocytes # (Manual) Eosinophils # (Manual) PT INR D-Dimer POC ABG pH POC ABG pCO2 POC ABG pO2 ABG pO2 ABG HCO3 ABG Base Excess ABG Hemoglobin Oxyhemoglobin Sodium Potassium Chloride 96.9 L Carbon Dioxide 33 H BUN 37 H Creatinine 2.4 H Glucose POC Glucose 108 H Calcium 10.3 H Phosphorus Magnesium ALT Alkaline Phosphatase Total Creatine Kinase CK-MB (CK-2) Rel Index Troponin T Albumin LDL Cholesterol Direct PTH Intact Salicylates Acetaminophen Crossmatch 03/31/19 04/01/19 04/01/19 12:38 05:48 12:06 WBC RBC Hgb Hct MCV MCH MCHC RDW Plt Count Lymph % (Auto) [place] % (Auto) Eos % (Auto) Baso % (Auto) Lymph # [place] # Eos # Baso # Seg Neutrophils % Seg Neuts % (Manual) Lymphocytes % (Manual) Eosinophils % (Manual) Seg Neutrophils # Lymphocytes # (Manual) Eosinophils # (Manual) PT INR D-Dimer POC ABG pH POC ABG pCO2 POC ABG pO2 ABG pO2 ABG HCO3 ABG Base Excess ABG Hemoglobin Oxyhemoglobin Sodium Potassium Chloride Carbon Dioxide BUN Creatinine Glucose POC Glucose 108 H 114 H 111 H Calcium Phosphorus Magnesium ALT Alkaline Phosphatase Total Creatine Kinase CK-MB (CK-2) Rel Index Troponin T Albumin LDL Cholesterol Direct PTH Intact Salicylates Acetaminophen Crossmatch 04/01/19 04/02/19 04/04/19 18:24 00:36 23:55 WBC RBC Hgb Hct MCV MCH MCHC RDW Plt Count Lymph % (Auto) [place] % (Auto) Eos % (Auto) Baso % (Auto) Lymph # [place] # Eos # Baso # Seg Neutrophils % Seg Neuts % (Manual) Lymphocytes % (Manual) Eosinophils % (Manual) Seg Neutrophils # Lymphocytes # (Manual) Eosinophils # (Manual) PT INR D-Dimer POC ABG pH POC ABG pCO2 POC ABG pO2 ABG pO2 ABG HCO3 ABG Base Excess ABG Hemoglobin Oxyhemoglobin Sodium Potassium Chloride Carbon Dioxide BUN Creatinine Glucose POC Glucose 113 H 117 H 109 H Calcium Phosphorus Magnesium ALT Alkaline Phosphatase Total Creatine Kinase CK-MB (CK-2) Rel Index Troponin T Albumin LDL Cholesterol Direct PTH Intact Salicylates Acetaminophen Crossmatch 04/06/19 04/06/19 04/06/19 00:11 06:02 23:30 WBC RBC Hgb Hct MCV MCH MCHC RDW Plt Count Lymph % (Auto) [place] % (Auto) Eos % (Auto) Baso % (Auto) Lymph # [place] # Eos # Baso # Seg Neutrophils % Seg Neuts % (Manual) Lymphocytes % (Manual) Eosinophils % (Manual) Seg Neutrophils # Lymphocytes # (Manual) Eosinophils # (Manual) PT INR D-Dimer POC ABG pH POC ABG pCO2 POC ABG pO2 ABG pO2 ABG HCO3 ABG Base Excess ABG Hemoglobin Oxyhemoglobin Sodium Potassium Chloride Carbon Dioxide BUN Creatinine Glucose POC Glucose 116 H 112 H 112 H Calcium Phosphorus Magnesium ALT Alkaline Phosphatase Total Creatine Kinase CK-MB (CK-2) Rel Index Troponin T Albumin LDL Cholesterol Direct PTH Intact Salicylates Acetaminophen Crossmatch 04/08/19 04/08/19 04/08/19 02:23 06:19 13:01 WBC RBC Hgb Hct MCV MCH MCHC RDW Plt Count Lymph % (Auto) [place] % (Auto) Eos % (Auto) Baso % (Auto) Lymph # [place] # Eos # Baso # Seg Neutrophils % Seg Neuts % (Manual) Lymphocytes % (Manual) Eosinophils % (Manual) Seg Neutrophils # Lymphocytes # (Manual) Eosinophils # (Manual) PT INR D-Dimer POC ABG pH POC ABG pCO2 POC ABG pO2 ABG pO2 ABG HCO3 ABG Base Excess ABG Hemoglobin Oxyhemoglobin Sodium Potassium Chloride Carbon Dioxide BUN Creatinine Glucose POC Glucose 144 H 126 H 118 H Calcium Phosphorus Magnesium ALT Alkaline Phosphatase Total Creatine Kinase CK-MB (CK-2) Rel Index Troponin T Albumin LDL Cholesterol Direct PTH Intact Salicylates Acetaminophen Crossmatch 04/08/19 04/09/19 04/10/19 23:28 05:52 06:34 WBC RBC Hgb Hct MCV MCH MCHC RDW Plt Count Lymph % (Auto) [place] % (Auto) Eos % (Auto) Baso % (Auto) Lymph # [place] # Eos # Baso # Seg Neutrophils % Seg Neuts % (Manual) Lymphocytes % (Manual) Eosinophils % (Manual) Seg Neutrophils # Lymphocytes # (Manual) Eosinophils # (Manual) PT INR D-Dimer POC ABG pH POC ABG pCO2 POC ABG pO2 ABG pO2 ABG HCO3 ABG Base Excess ABG Hemoglobin Oxyhemoglobin Sodium Potassium Chloride Carbon Dioxide BUN Creatinine Glucose POC Glucose 119 H 116 H 114 H Calcium Phosphorus Magnesium ALT Alkaline Phosphatase Total Creatine Kinase CK-MB (CK-2) Rel Index Troponin T Albumin LDL Cholesterol Direct PTH Intact Salicylates Acetaminophen Crossmatch 04/10/19 04/10/19 04/11/19 12:34 18:59 00:36 WBC RBC Hgb Hct MCV MCH MCHC RDW Plt Count Lymph % (Auto) [place] % (Auto) Eos % (Auto) Baso % (Auto) Lymph # [place] # Eos # Baso # Seg Neutrophils % Seg Neuts % (Manual) Lymphocytes % (Manual) Eosinophils % (Manual) Seg Neutrophils # Lymphocytes # (Manual) Eosinophils # (Manual) PT INR D-Dimer POC ABG pH POC ABG pCO2 POC ABG pO2 ABG pO2 ABG HCO3 ABG Base Excess ABG Hemoglobin Oxyhemoglobin Sodium Potassium Chloride Carbon Dioxide BUN Creatinine Glucose POC Glucose 112 H 109 H 124 H Calcium Phosphorus Magnesium ALT Alkaline Phosphatase Total Creatine Kinase CK-MB (CK-2) Rel Index Troponin T Albumin LDL Cholesterol Direct PTH Intact Salicylates Acetaminophen Crossmatch 04/11/19 04/11/19 04/12/19 08:01 17:25 02:18 WBC RBC Hgb Hct MCV MCH MCHC RDW Plt Count Lymph % (Auto) [place] % (Auto) Eos % (Auto) Baso % (Auto) Lymph # [place] # Eos # Baso # Seg Neutrophils % Seg Neuts % (Manual) Lymphocytes % (Manual) Eosinophils % (Manual) Seg Neutrophils # Lymphocytes # (Manual) Eosinophils # (Manual) PT INR D-Dimer POC ABG pH POC ABG pCO2 POC ABG pO2 ABG pO2 ABG HCO3 ABG Base Excess ABG Hemoglobin Oxyhemoglobin Sodium Potassium Chloride Carbon Dioxide BUN Creatinine Glucose POC Glucose 118 H 106 H 125 H Calcium Phosphorus Magnesium ALT Alkaline Phosphatase Total Creatine Kinase CK-MB (CK-2) Rel Index Troponin T Albumin LDL Cholesterol Direct PTH Intact Salicylates Acetaminophen Crossmatch 04/12/19 04/12/19 04/12/19 06:24 12:22 17:13 WBC RBC Hgb Hct MCV MCH MCHC RDW Plt Count Lymph % (Auto) [place] % (Auto) Eos % (Auto) Baso % (Auto) Lymph # [place] # Eos # Baso # Seg Neutrophils % Seg Neuts % (Manual) Lymphocytes % (Manual) Eosinophils % (Manual) Seg Neutrophils # Lymphocytes # (Manual) Eosinophils # (Manual) PT INR D-Dimer POC ABG pH POC ABG pCO2 POC ABG pO2 ABG pO2 ABG HCO3 ABG Base Excess ABG Hemoglobin Oxyhemoglobin Sodium Potassium Chloride Carbon Dioxide BUN Creatinine Glucose POC Glucose 128 H 114 H 110 H Calcium Phosphorus Magnesium ALT Alkaline Phosphatase Total Creatine Kinase CK-MB (CK-2) Rel Index Troponin T Albumin LDL Cholesterol Direct PTH Intact Salicylates Acetaminophen Crossmatch 04/13/19 04/13/19 04/13/19 06:59 07:31 07:31 WBC RBC 3.34 L Hgb 8.9 L Hct 28.6 L MCV MCH 27 L MCHC 31 L RDW 19.6 H Plt Count Lymph % (Auto) [place] % (Auto) Eos % (Auto) Baso % (Auto) Lymph # [place] # Eos # Baso # Seg Neutrophils % Seg Neuts % (Manual) Lymphocytes % (Manual) Eosinophils % (Manual) Seg Neutrophils # Lymphocytes # (Manual) Eosinophils # (Manual) PT INR D-Dimer POC ABG pH POC ABG pCO2 POC ABG pO2 ABG pO2 ABG HCO3 ABG Base Excess ABG Hemoglobin Oxyhemoglobin Sodium Potassium Chloride 96.4 L Carbon Dioxide 33 H BUN 66 H Creatinine 4.5 H Glucose 103 H POC Glucose 107 H Calcium Phosphorus Magnesium ALT Alkaline Phosphatase Total Creatine Kinase CK-MB (CK-2) Rel Index Troponin T Albumin LDL Cholesterol Direct PTH Intact Salicylates Acetaminophen Crossmatch 04/13/19 04/14/19 04/14/19 23:43 05:50 13:07 WBC RBC Hgb Hct MCV MCH MCHC RDW Plt Count Lymph % (Auto) [place] % (Auto) Eos % (Auto) Baso % (Auto) Lymph # [place] # Eos # Baso # Seg Neutrophils % Seg Neuts % (Manual) Lymphocytes % (Manual) Eosinophils % (Manual) Seg Neutrophils # Lymphocytes # (Manual) Eosinophils # (Manual) PT INR D-Dimer POC ABG pH POC ABG pCO2 POC ABG pO2 ABG pO2 ABG HCO3 ABG Base Excess ABG Hemoglobin Oxyhemoglobin Sodium Potassium Chloride Carbon Dioxide BUN Creatinine Glucose POC Glucose 119 H 112 H 112 H Calcium Phosphorus Magnesium ALT Alkaline Phosphatase Total Creatine Kinase CK-MB (CK-2) Rel Index Troponin T Albumin LDL Cholesterol Direct PTH Intact Salicylates Acetaminophen Crossmatch 04/14/19 04/15/19 04/15/19 18:35 01:18 05:17 WBC RBC Hgb Hct MCV MCH MCHC RDW Plt Count Lymph % (Auto) [place] % (Auto) Eos % (Auto) Baso % (Auto) Lymph # [place] # Eos # Baso # Seg Neutrophils % Seg Neuts % (Manual) Lymphocytes % (Manual) Eosinophils % (Manual) Seg Neutrophils # Lymphocytes # (Manual) Eosinophils # (Manual) PT INR D-Dimer POC ABG pH POC ABG pCO2 POC ABG pO2 ABG pO2 ABG HCO3 ABG Base Excess ABG Hemoglobin Oxyhemoglobin Sodium Potassium Chloride Carbon Dioxide BUN Creatinine Glucose POC Glucose 114 H 114 H 114 H Calcium Phosphorus Magnesium ALT Alkaline Phosphatase Total Creatine Kinase CK-MB (CK-2) Rel Index Troponin T Albumin LDL Cholesterol Direct PTH Intact Salicylates Acetaminophen Crossmatch 04/15/19 04/15/19 04/16/19 11:50 23:39 05:41 WBC RBC Hgb Hct MCV MCH MCHC RDW Plt Count Lymph % (Auto) [place] % (Auto) Eos % (Auto) Baso % (Auto) Lymph # [place] # Eos # Baso # Seg Neutrophils % Seg Neuts % (Manual) Lymphocytes % (Manual) Eosinophils % (Manual) Seg Neutrophils # Lymphocytes # (Manual) Eosinophils # (Manual) PT INR D-Dimer POC ABG pH POC ABG pCO2 POC ABG pO2 ABG pO2 ABG HCO3 ABG Base Excess ABG Hemoglobin Oxyhemoglobin Sodium Potassium Chloride Carbon Dioxide BUN Creatinine Glucose POC Glucose 109 H 115 H 125 H Calcium Phosphorus Magnesium ALT Alkaline Phosphatase Total Creatine Kinase CK-MB (CK-2) Rel Index Troponin T Albumin LDL Cholesterol Direct PTH Intact Salicylates Acetaminophen Crossmatch 04/16/19 04/17/19 04/17/19 12:53 01:00 12:38 WBC RBC Hgb Hct MCV MCH MCHC RDW Plt Count Lymph % (Auto) [place] % (Auto) Eos % (Auto) Baso % (Auto) Lymph # [place] # Eos # Baso # Seg Neutrophils % Seg Neuts % (Manual) Lymphocytes % (Manual) Eosinophils % (Manual) Seg Neutrophils # Lymphocytes # (Manual) Eosinophils # (Manual) PT INR D-Dimer POC ABG pH POC ABG pCO2 POC ABG pO2 ABG pO2 ABG HCO3 ABG Base Excess ABG Hemoglobin Oxyhemoglobin Sodium Potassium Chloride Carbon Dioxide BUN Creatinine Glucose POC Glucose 121 H 127 H 159 H Calcium Phosphorus Magnesium ALT Alkaline Phosphatase Total Creatine Kinase CK-MB (CK-2) Rel Index Troponin T Albumin LDL Cholesterol Direct PTH Intact Salicylates Acetaminophen Crossmatch 04/17/19 04/17/19 04/18/19 18:27 23:36 07:19 WBC RBC 3.49 L Hgb 9.0 L Hct 29.9 L MCV MCH 26 L MCHC 30 L RDW 20.0 H Plt Count Lymph % (Auto) [place] % (Auto) Eos % (Auto) Baso % (Auto) Lymph # [place] # Eos # Baso # Seg Neutrophils % Seg Neuts % (Manual) Lymphocytes % (Manual) Eosinophils % (Manual) Seg Neutrophils # Lymphocytes # (Manual) Eosinophils # (Manual) PT INR D-Dimer POC ABG pH POC ABG pCO2 POC ABG pO2 ABG pO2 ABG HCO3 ABG Base Excess ABG Hemoglobin Oxyhemoglobin Sodium Potassium Chloride Carbon Dioxide BUN Creatinine Glucose POC Glucose 109 H 134 H Calcium Phosphorus Magnesium ALT Alkaline Phosphatase Total Creatine Kinase CK-MB (CK-2) Rel Index Troponin T Albumin LDL Cholesterol Direct PTH Intact Salicylates Acetaminophen Crossmatch 04/18/19 04/18/19 04/18/19 07:19 12:16 17:09 WBC RBC Hgb Hct MCV MCH MCHC RDW Plt Count Lymph % (Auto) [place] % (Auto) Eos % (Auto) Baso % (Auto) Lymph # [place] # Eos # Baso # Seg Neutrophils % Seg Neuts % (Manual) Lymphocytes % (Manual) Eosinophils % (Manual) Seg Neutrophils # Lymphocytes # (Manual) Eosinophils # (Manual) PT INR D-Dimer POC ABG pH POC ABG pCO2 POC ABG pO2 ABG pO2 ABG HCO3 ABG Base Excess ABG Hemoglobin Oxyhemoglobin Sodium Potassium Chloride Carbon Dioxide BUN 41 H Creatinine 2.9 H Glucose 122 H POC Glucose 125 H 131 H Calcium Phosphorus Magnesium ALT Alkaline Phosphatase Total Creatine Kinase CK-MB (CK-2) Rel Index Troponin T Albumin LDL Cholesterol Direct PTH Intact Salicylates Acetaminophen Crossmatch 04/18/19 04/19/19 04/19/19 23:57 05:55 11:35 WBC RBC Hgb Hct MCV MCH MCHC RDW Plt Count Lymph % (Auto) [place] % (Auto) Eos % (Auto) Baso % (Auto) Lymph # [place] # Eos # Baso # Seg Neutrophils % Seg Neuts % (Manual) Lymphocytes % (Manual) Eosinophils % (Manual) Seg Neutrophils # Lymphocytes # (Manual) Eosinophils # (Manual) PT INR D-Dimer POC ABG pH POC ABG pCO2 POC ABG pO2 ABG pO2 ABG HCO3 ABG Base Excess ABG Hemoglobin Oxyhemoglobin Sodium Potassium Chloride Carbon Dioxide BUN Creatinine Glucose POC Glucose 159 H 144 H 177 H Calcium Phosphorus Magnesium ALT Alkaline Phosphatase Total Creatine Kinase CK-MB (CK-2) Rel Index Troponin T Albumin LDL Cholesterol Direct PTH Intact Salicylates Acetaminophen Crossmatch 04/19/19 04/20/19 04/20/19 16:36 02:05 06:28 WBC RBC Hgb Hct MCV MCH MCHC RDW Plt Count Lymph % (Auto) [place] % (Auto) Eos % (Auto) Baso % (Auto) Lymph # [place] # Eos # Baso # Seg Neutrophils % Seg Neuts % (Manual) Lymphocytes % (Manual) Eosinophils % (Manual) Seg Neutrophils # Lymphocytes # (Manual) Eosinophils # (Manual) PT INR D-Dimer POC ABG pH POC ABG pCO2 POC ABG pO2 ABG pO2 ABG HCO3 ABG Base Excess ABG Hemoglobin Oxyhemoglobin Sodium Potassium Chloride Carbon Dioxide BUN Creatinine Glucose POC Glucose 134 H 142 H 132 H Calcium Phosphorus Magnesium ALT Alkaline Phosphatase Total Creatine Kinase CK-MB (CK-2) Rel Index Troponin T Albumin LDL Cholesterol Direct PTH Intact Salicylates Acetaminophen Crossmatch 04/20/19 04/20/19 04/21/19 12:37 23:34 05:59 WBC RBC Hgb Hct MCV MCH MCHC RDW Plt Count Lymph % (Auto) [place] % (Auto) Eos % (Auto) Baso % (Auto) Lymph # [place] # Eos # Baso # Seg Neutrophils % Seg Neuts % (Manual) Lymphocytes % (Manual) Eosinophils % (Manual) Seg Neutrophils # Lymphocytes # (Manual) Eosinophils # (Manual) PT INR D-Dimer POC ABG pH POC ABG pCO2 POC ABG pO2 ABG pO2 ABG HCO3 ABG Base Excess ABG Hemoglobin Oxyhemoglobin Sodium Potassium Chloride Carbon Dioxide BUN Creatinine Glucose POC Glucose 163 H 166 H 140 H Calcium Phosphorus Magnesium ALT Alkaline Phosphatase Total Creatine Kinase CK-MB (CK-2) Rel Index Troponin T Albumin LDL Cholesterol Direct PTH Intact Salicylates Acetaminophen Crossmatch 04/21/19 04/21/19 04/21/19 12:07 17:22 23:43 WBC RBC Hgb Hct MCV MCH MCHC RDW Plt Count Lymph % (Auto) [place] % (Auto) Eos % (Auto) Baso % (Auto) Lymph # [place] # Eos # Baso # Seg Neutrophils % Seg Neuts % (Manual) Lymphocytes % (Manual) Eosinophils % (Manual) Seg Neutrophils # Lymphocytes # (Manual) Eosinophils # (Manual) PT INR D-Dimer POC ABG pH POC ABG pCO2 POC ABG pO2 ABG pO2 ABG HCO3 ABG Base Excess ABG Hemoglobin Oxyhemoglobin Sodium Potassium Chloride Carbon Dioxide BUN Creatinine Glucose POC Glucose 135 H 141 H 138 H Calcium Phosphorus Magnesium ALT Alkaline Phosphatase Total Creatine Kinase CK-MB (CK-2) Rel Index Troponin T Albumin LDL Cholesterol Direct PTH Intact Salicylates Acetaminophen Crossmatch 04/22/19 04/22/19 04/22/19 05:12 18:24 23:49 WBC RBC Hgb Hct MCV MCH MCHC RDW Plt Count Lymph % (Auto) [place] % (Auto) Eos % (Auto) Baso % (Auto) Lymph # [place] # Eos # Baso # Seg Neutrophils % Seg Neuts % (Manual) Lymphocytes % (Manual) Eosinophils % (Manual) Seg Neutrophils # Lymphocytes # (Manual) Eosinophils # (Manual) PT INR D-Dimer POC ABG pH POC ABG pCO2 POC ABG pO2 ABG pO2 ABG HCO3 ABG Base Excess ABG Hemoglobin Oxyhemoglobin Sodium Potassium Chloride Carbon Dioxide BUN Creatinine Glucose POC Glucose 141 H 137 H 142 H Calcium Phosphorus Magnesium ALT Alkaline Phosphatase Total Creatine Kinase CK-MB (CK-2) Rel Index Troponin T Albumin LDL Cholesterol Direct PTH Intact Salicylates Acetaminophen Crossmatch 04/23/19 04/23/19 04/23/19 05:53 08:13 11:58 WBC RBC Hgb Hct MCV MCH MCHC RDW Plt Count Lymph % (Auto) [place] % (Auto) Eos % (Auto) Baso % (Auto) Lymph # [place] # Eos # Baso # Seg Neutrophils % Seg Neuts % (Manual) Lymphocytes % (Manual) Eosinophils % (Manual) Seg Neutrophils # Lymphocytes # (Manual) Eosinophils # (Manual) PT INR D-Dimer POC ABG pH POC ABG pCO2 POC ABG pO2 ABG pO2 ABG HCO3 ABG Base Excess ABG Hemoglobin Oxyhemoglobin Sodium Potassium Chloride Carbon Dioxide BUN Creatinine Glucose POC Glucose 132 H 154 H 165 H Calcium Phosphorus Magnesium ALT Alkaline Phosphatase Total Creatine Kinase CK-MB (CK-2) Rel Index Troponin T Albumin LDL Cholesterol Direct PTH Intact Salicylates Acetaminophen Crossmatch 04/23/19 04/24/19 04/24/19 16:28 00:28 07:00 WBC RBC Hgb Hct MCV MCH MCHC RDW Plt Count Lymph % (Auto) [place] % (Auto) Eos % (Auto) Baso % (Auto) Lymph # [place] # Eos # Baso # Seg Neutrophils % Seg Neuts % (Manual) Lymphocytes % (Manual) Eosinophils % (Manual) Seg Neutrophils # Lymphocytes # (Manual) Eosinophils # (Manual) PT INR D-Dimer POC ABG pH POC ABG pCO2 POC ABG pO2 ABG pO2 ABG HCO3 ABG Base Excess ABG Hemoglobin Oxyhemoglobin Sodium Potassium Chloride Carbon Dioxide BUN Creatinine Glucose POC Glucose 136 H 140 H 141 H Calcium Phosphorus Magnesium ALT Alkaline Phosphatase Total Creatine Kinase CK-MB (CK-2) Rel Index Troponin T Albumin LDL Cholesterol Direct PTH Intact Salicylates Acetaminophen Crossmatch 04/24/19 04/24/19 04/25/19 12:38 18:57 00:38 WBC RBC Hgb Hct MCV MCH MCHC RDW Plt Count Lymph % (Auto) [place] % (Auto) Eos % (Auto) Baso % (Auto) Lymph # [place] # Eos # Baso # Seg Neutrophils % Seg Neuts % (Manual) Lymphocytes % (Manual) Eosinophils % (Manual) Seg Neutrophils # Lymphocytes # (Manual) Eosinophils # (Manual) PT INR D-Dimer POC ABG pH POC ABG pCO2 POC ABG pO2 ABG pO2 ABG HCO3 ABG Base Excess ABG Hemoglobin Oxyhemoglobin Sodium Potassium Chloride Carbon Dioxide BUN Creatinine Glucose POC Glucose 152 H 166 H 128 H Calcium Phosphorus Magnesium ALT Alkaline Phosphatase Total Creatine Kinase CK-MB (CK-2) Rel Index Troponin T Albumin LDL Cholesterol Direct PTH Intact Salicylates Acetaminophen Crossmatch 04/25/19 04/25/19 04/25/19 05:44 13:43 18:34 WBC RBC Hgb Hct MCV MCH MCHC RDW Plt Count Lymph % (Auto) [place] % (Auto) Eos % (Auto) Baso % (Auto) Lymph # [place] # Eos # Baso # Seg Neutrophils % Seg Neuts % (Manual) Lymphocytes % (Manual) Eosinophils % (Manual) Seg Neutrophils # Lymphocytes # (Manual) Eosinophils # (Manual) PT INR D-Dimer POC ABG pH POC ABG pCO2 POC ABG pO2 ABG pO2 ABG HCO3 ABG Base Excess ABG Hemoglobin Oxyhemoglobin Sodium Potassium Chloride Carbon Dioxide BUN Creatinine Glucose POC Glucose 153 H 186 H 124 H Calcium Phosphorus Magnesium ALT Alkaline Phosphatase Total Creatine Kinase CK-MB (CK-2) Rel Index Troponin T Albumin LDL Cholesterol Direct PTH Intact Salicylates Acetaminophen Crossmatch 04/26/19 04/26/19 04/26/19 00:59 05:52 10:12 WBC 11.5 H RBC 2.84 L Hgb 7.4 L Hct 23.3 L MCV 82 L MCH 26 L MCHC RDW 20.3 H Plt Count Lymph % (Auto) 7.5 L [place] % (Auto) 7.5 H Eos % (Auto) 5.3 H Baso % (Auto) Lymph # 0.9 L [place] # 0.9 H Eos # 0.6 H Baso # Seg Neutrophils % 79.2 H Seg Neuts % (Manual) Lymphocytes % (Manual) Eosinophils % (Manual) Seg Neutrophils # 9.1 H Lymphocytes # (Manual) Eosinophils # (Manual) PT INR D-Dimer POC ABG pH POC ABG pCO2 POC ABG pO2 ABG pO2 ABG HCO3 ABG Base Excess ABG Hemoglobin Oxyhemoglobin Sodium Potassium Chloride Carbon Dioxide BUN Creatinine Glucose POC Glucose 163 H 146 H Calcium Phosphorus Magnesium ALT Alkaline Phosphatase Total Creatine Kinase CK-MB (CK-2) Rel Index Troponin T Albumin LDL Cholesterol Direct PTH Intact Salicylates Acetaminophen Crossmatch 04/26/19 04/26/19 04/26/19 10:12 12:15 19:00 WBC RBC Hgb Hct MCV MCH MCHC RDW Plt Count Lymph % (Auto) [place] % (Auto) Eos % (Auto) Baso % (Auto) Lymph # [place] # Eos # Baso # Seg Neutrophils % Seg Neuts % (Manual) Lymphocytes % (Manual) Eosinophils % (Manual) Seg Neutrophils # Lymphocytes # (Manual) Eosinophils # (Manual) PT INR D-Dimer POC ABG pH POC ABG pCO2 POC ABG pO2 ABG pO2 ABG HCO3 ABG Base Excess ABG Hemoglobin Oxyhemoglobin Sodium 130 L Potassium Chloride 87.4 L Carbon Dioxide BUN 93 H Creatinine 4.2 H Glucose 140 H POC Glucose 155 H 179 H Calcium Phosphorus Magnesium ALT Alkaline Phosphatase Total Creatine Kinase CK-MB (CK-2) Rel Index Troponin T Albumin LDL Cholesterol Direct PTH Intact Salicylates Acetaminophen Crossmatch 04/27/19 04/27/19 04/27/19 00:23 06:34 17:13 WBC RBC Hgb Hct MCV MCH MCHC RDW Plt Count Lymph % (Auto) [place] % (Auto) Eos % (Auto) Baso % (Auto) Lymph # [place] # Eos # Baso # Seg Neutrophils % Seg Neuts % (Manual) Lymphocytes % (Manual) Eosinophils % (Manual) Seg Neutrophils # Lymphocytes # (Manual) Eosinophils # (Manual) PT INR D-Dimer POC ABG pH POC ABG pCO2 POC ABG pO2 ABG pO2 ABG HCO3 ABG Base Excess ABG Hemoglobin Oxyhemoglobin Sodium Potassium Chloride Carbon Dioxide BUN Creatinine Glucose POC Glucose 158 H 140 H 152 H Calcium Phosphorus Magnesium ALT Alkaline Phosphatase Total Creatine Kinase CK-MB (CK-2) Rel Index Troponin T Albumin LDL Cholesterol Direct PTH Intact Salicylates Acetaminophen Crossmatch 04/27/19 04/28/19 04/28/19 23:50 05:18 11:37 WBC RBC Hgb Hct MCV MCH MCHC RDW Plt Count Lymph % (Auto) [place] % (Auto) Eos % (Auto) Baso % (Auto) Lymph # [place] # Eos # Baso # Seg Neutrophils % Seg Neuts % (Manual) Lymphocytes % (Manual) Eosinophils % (Manual) Seg Neutrophils # Lymphocytes # (Manual) Eosinophils # (Manual) PT INR D-Dimer POC ABG pH POC ABG pCO2 POC ABG pO2 ABG pO2 ABG HCO3 ABG Base Excess ABG Hemoglobin Oxyhemoglobin Sodium Potassium Chloride Carbon Dioxide BUN Creatinine Glucose POC Glucose 160 H 145 H 177 H Calcium Phosphorus Magnesium ALT Alkaline Phosphatase Total Creatine Kinase CK-MB (CK-2) Rel Index Troponin T Albumin LDL Cholesterol Direct PTH Intact Salicylates Acetaminophen Crossmatch 04/28/19 04/28/19 04/29/19 18:31 23:47 05:50 WBC RBC Hgb Hct MCV MCH MCHC RDW Plt Count Lymph % (Auto) [place] % (Auto) Eos % (Auto) Baso % (Auto) Lymph # [place] # Eos # Baso # Seg Neutrophils % Seg Neuts % (Manual) Lymphocytes % (Manual) Eosinophils % (Manual) Seg Neutrophils # Lymphocytes # (Manual) Eosinophils # (Manual) PT INR D-Dimer POC ABG pH POC ABG pCO2 POC ABG pO2 ABG pO2 ABG HCO3 ABG Base Excess ABG Hemoglobin Oxyhemoglobin Sodium Potassium Chloride Carbon Dioxide BUN Creatinine Glucose POC Glucose 153 H 117 H 177 H Calcium Phosphorus Magnesium ALT Alkaline Phosphatase Total Creatine Kinase CK-MB (CK-2) Rel Index Troponin T Albumin LDL Cholesterol Direct PTH Intact Salicylates Acetaminophen Crossmatch 04/29/19 04/30/19 04/30/19 17:04 01:02 06:42 WBC RBC Hgb Hct MCV MCH MCHC RDW Plt Count Lymph % (Auto) [place] % (Auto) Eos % (Auto) Baso % (Auto) Lymph # [place] # Eos # Baso # Seg Neutrophils % Seg Neuts % (Manual) Lymphocytes % (Manual) Eosinophils % (Manual) Seg Neutrophils # Lymphocytes # (Manual) Eosinophils # (Manual) PT INR D-Dimer POC ABG pH POC ABG pCO2 POC ABG pO2 ABG pO2 ABG HCO3 ABG Base Excess ABG Hemoglobin Oxyhemoglobin Sodium Potassium Chloride Carbon Dioxide BUN Creatinine Glucose POC Glucose 205 H 143 H 145 H Calcium Phosphorus Magnesium ALT Alkaline Phosphatase Total Creatine Kinase CK-MB (CK-2) Rel Index Troponin T Albumin LDL Cholesterol Direct PTH Intact Salicylates Acetaminophen Crossmatch 04/30/19 04/30/19 04/30/19 11:31 18:12 23:38 WBC RBC Hgb Hct MCV MCH MCHC RDW Plt Count Lymph % (Auto) [place] % (Auto) Eos % (Auto) Baso % (Auto) Lymph # [place] # Eos # Baso # Seg Neutrophils % Seg Neuts % (Manual) Lymphocytes % (Manual) Eosinophils % (Manual) Seg Neutrophils # Lymphocytes # (Manual) Eosinophils # (Manual) PT INR D-Dimer POC ABG pH POC ABG pCO2 POC ABG pO2 ABG pO2 ABG HCO3 ABG Base Excess ABG Hemoglobin Oxyhemoglobin Sodium Potassium Chloride Carbon Dioxide BUN Creatinine Glucose POC Glucose 162 H 117 H 139 H Calcium Phosphorus Magnesium ALT Alkaline Phosphatase Total Creatine Kinase CK-MB (CK-2) Rel Index Troponin T Albumin LDL Cholesterol Direct PTH Intact Salicylates Acetaminophen Crossmatch 05/01/19 05/01/19 05/02/19 06:06 23:41 05:59 WBC RBC Hgb Hct MCV MCH MCHC RDW Plt Count Lymph % (Auto) [place] % (Auto) Eos % (Auto) Baso % (Auto) Lymph # [place] # Eos # Baso # Seg Neutrophils % Seg Neuts % (Manual) Lymphocytes % (Manual) Eosinophils % (Manual) Seg Neutrophils # Lymphocytes # (Manual) Eosinophils # (Manual) PT INR D-Dimer POC ABG pH POC ABG pCO2 POC ABG pO2 ABG pO2 ABG HCO3 ABG Base Excess ABG Hemoglobin Oxyhemoglobin Sodium Potassium Chloride Carbon Dioxide BUN Creatinine Glucose POC Glucose 150 H 140 H 130 H Calcium Phosphorus Magnesium ALT Alkaline Phosphatase Total Creatine Kinase CK-MB (CK-2) Rel Index Troponin T Albumin LDL Cholesterol Direct PTH Intact Salicylates Acetaminophen Crossmatch 05/02/19 05/02/19 05/03/19 11:55 18:10 00:15 WBC RBC Hgb Hct MCV MCH MCHC RDW Plt Count Lymph % (Auto) [place] % (Auto) Eos % (Auto) Baso % (Auto) Lymph # [place] # Eos # Baso # Seg Neutrophils % Seg Neuts % (Manual) Lymphocytes % (Manual) Eosinophils % (Manual) Seg Neutrophils # Lymphocytes # (Manual) Eosinophils # (Manual) PT INR D-Dimer POC ABG pH POC ABG pCO2 POC ABG pO2 ABG pO2 ABG HCO3 ABG Base Excess ABG Hemoglobin Oxyhemoglobin Sodium Potassium Chloride Carbon Dioxide BUN Creatinine Glucose POC Glucose 146 H 141 H 145 H Calcium Phosphorus Magnesium ALT Alkaline Phosphatase Total Creatine Kinase CK-MB (CK-2) Rel Index Troponin T Albumin LDL Cholesterol Direct PTH Intact Salicylates Acetaminophen Crossmatch 05/03/19 05/03/19 05/03/19 05:49 05:49 06:01 WBC RBC 2.84 L Hgb 7.2 L Hct 22.9 L MCV 81 L MCH 26 L MCHC RDW 20.6 H Plt Count 456 H Lymph % (Auto) 11.8 L [place] % (Auto) Eos % (Auto) 10.6 H Baso % (Auto) Lymph # 1.1 L [place] # Eos # 1.0 H Baso # Seg Neutrophils % 70.4 H Seg Neuts % (Manual) Lymphocytes % (Manual) Eosinophils % (Manual) Seg Neutrophils # Lymphocytes # (Manual) Eosinophils # (Manual) PT INR D-Dimer POC ABG pH POC ABG pCO2 POC ABG pO2 ABG pO2 ABG HCO3 ABG Base Excess ABG Hemoglobin Oxyhemoglobin Sodium Potassium Chloride 94.8 L Carbon Dioxide BUN 66 H Creatinine 3.6 H Glucose 129 H POC Glucose 135 H Calcium Phosphorus Magnesium ALT Alkaline Phosphatase Total Creatine Kinase CK-MB (CK-2) Rel Index Troponin T Albumin LDL Cholesterol Direct PTH Intact Salicylates Acetaminophen Crossmatch 05/03/19 05/03/19 05/04/19 11:04 18:40 00:06 WBC RBC Hgb Hct MCV MCH MCHC RDW Plt Count Lymph % (Auto) [place] % (Auto) Eos % (Auto) Baso % (Auto) Lymph # [place] # Eos # Baso # Seg Neutrophils % Seg Neuts % (Manual) Lymphocytes % (Manual) Eosinophils % (Manual) Seg Neutrophils # Lymphocytes # (Manual) Eosinophils # (Manual) PT INR D-Dimer POC ABG pH POC ABG pCO2 POC ABG pO2 ABG pO2 ABG HCO3 ABG Base Excess ABG Hemoglobin Oxyhemoglobin Sodium Potassium Chloride Carbon Dioxide BUN Creatinine Glucose POC Glucose 191 H 167 H 137 H Calcium Phosphorus Magnesium ALT Alkaline Phosphatase Total Creatine Kinase CK-MB (CK-2) Rel Index Troponin T Albumin LDL Cholesterol Direct PTH Intact Salicylates Acetaminophen Crossmatch 05/04/19 05/04/19 05/04/19 06:44 07:30 07:30 WBC 15.8 H RBC 2.74 L Hgb 6.7 L Hct 22.2 L MCV 81 L MCH 24 L MCHC 30 L RDW 20.4 H Plt Count 450 H Lymph % (Auto) 5.1 L [place] % (Auto) Eos % (Auto) Baso % (Auto) Lymph # 0.8 L [place] # Eos # 0.6 H Baso # Seg Neutrophils % 86.3 H Seg Neuts % (Manual) Lymphocytes % (Manual) Eosinophils % (Manual) Seg Neutrophils # 13.6 H Lymphocytes # (Manual) Eosinophils # (Manual) PT INR D-Dimer POC ABG pH POC ABG pCO2 POC ABG pO2 ABG pO2 ABG HCO3 ABG Base Excess ABG Hemoglobin Oxyhemoglobin Sodium Potassium Chloride 95.2 L Carbon Dioxide BUN 92 H Creatinine 4.8 H Glucose 139 H POC Glucose 153 H Calcium Phosphorus Magnesium ALT Alkaline Phosphatase Total Creatine Kinase CK-MB (CK-2) Rel Index Troponin T Albumin LDL Cholesterol Direct PTH Intact Salicylates Acetaminophen Crossmatch 05/04/19 05/04/19 05/05/19 12:55 16:31 01:02 WBC RBC Hgb Hct MCV MCH MCHC RDW Plt Count Lymph % (Auto) [place] % (Auto) Eos % (Auto) Baso % (Auto) Lymph # [place] # Eos # Baso # Seg Neutrophils % Seg Neuts % (Manual) Lymphocytes % (Manual) Eosinophils % (Manual) Seg Neutrophils # Lymphocytes # (Manual) Eosinophils # (Manual) PT INR D-Dimer POC ABG pH POC ABG pCO2 POC ABG pO2 ABG pO2 ABG HCO3 ABG Base Excess ABG Hemoglobin Oxyhemoglobin Sodium Potassium Chloride Carbon Dioxide BUN Creatinine Glucose POC Glucose 169 H 171 H Calcium Phosphorus Magnesium ALT Alkaline Phosphatase Total Creatine Kinase CK-MB (CK-2) Rel Index Troponin T Albumin LDL Cholesterol Direct PTH Intact Salicylates Acetaminophen Crossmatch See Detail 05/05/19 05/05/19 05/05/19 05:26 05:36 11:48 WBC 12.6 H RBC 2.73 L Hgb 6.9 L Hct 22.3 L MCV 82 L MCH 25 L MCHC 31 L RDW 21.0 H Plt Count Lymph % (Auto) 8.9 L [place] % (Auto) Eos % (Auto) Baso % (Auto) Lymph # 1.1 L [place] # 0.9 H Eos # Baso # Seg Neutrophils % 80.7 H Seg Neuts % (Manual) Lymphocytes % (Manual) Eosinophils % (Manual) Seg Neutrophils # 10.2 H Lymphocytes # (Manual) Eosinophils # (Manual) PT INR D-Dimer POC ABG pH POC ABG pCO2 POC ABG pO2 ABG pO2 ABG HCO3 ABG Base Excess ABG Hemoglobin Oxyhemoglobin Sodium Potassium Chloride Carbon Dioxide BUN Creatinine Glucose POC Glucose 153 H 173 H Calcium Phosphorus Magnesium ALT Alkaline Phosphatase Total Creatine Kinase CK-MB (CK-2) Rel Index Troponin T Albumin LDL Cholesterol Direct PTH Intact Salicylates Acetaminophen Crossmatch 05/05/19 05/06/19 05/06/19 16:42 02:24 06:12 WBC RBC Hgb Hct MCV MCH MCHC RDW Plt Count Lymph % (Auto) [place] % (Auto) Eos % (Auto) Baso % (Auto) Lymph # [place] # Eos # Baso # Seg Neutrophils % Seg Neuts % (Manual) Lymphocytes % (Manual) Eosinophils % (Manual) Seg Neutrophils # Lymphocytes # (Manual) Eosinophils # (Manual) PT INR D-Dimer POC ABG pH POC ABG pCO2 POC ABG pO2 ABG pO2 ABG HCO3 ABG Base Excess ABG Hemoglobin Oxyhemoglobin Sodium Potassium Chloride Carbon Dioxide BUN Creatinine Glucose POC Glucose 126 H 138 H 151 H Calcium Phosphorus Magnesium ALT Alkaline Phosphatase Total Creatine Kinase CK-MB (CK-2) Rel Index Troponin T Albumin LDL Cholesterol Direct PTH Intact Salicylates Acetaminophen Crossmatch 05/06/19 05/06/19 05/06/19 08:15 16:48 23:16 WBC 11.8 H RBC 2.72 L Hgb 6.7 L Hct 21.7 L MCV 80 L MCH 25 L MCHC 31 L RDW 20.9 H Plt Count Lymph % (Auto) [place] % (Auto) Eos % (Auto) Baso % (Auto) Lymph # [place] # Eos # Baso # Seg Neutrophils % Seg Neuts % (Manual) Lymphocytes % (Manual) Eosinophils % (Manual) Seg Neutrophils # Lymphocytes # (Manual) Eosinophils # (Manual) PT INR D-Dimer POC ABG pH POC ABG pCO2 POC ABG pO2 ABG pO2 ABG HCO3 ABG Base Excess ABG Hemoglobin Oxyhemoglobin Sodium Potassium Chloride Carbon Dioxide BUN Creatinine Glucose POC Glucose 153 H 143 H Calcium Phosphorus Magnesium ALT Alkaline Phosphatase Total Creatine Kinase CK-MB (CK-2) Rel Index Troponin T Albumin LDL Cholesterol Direct PTH Intact Salicylates Acetaminophen Crossmatch 05/07/19 05/07/19 05/07/19 06:00 06:30 12:33 WBC RBC 3.53 L Hgb 9.1 L Hct 28.6 L D MCV 81 L MCH 26 L MCHC RDW 19.1 H Plt Count Lymph % (Auto) 9.6 L [place] % (Auto) Eos % (Auto) 4.8 H Baso % (Auto) Lymph # 1.1 L [place] # Eos # 0.5 H Baso # Seg Neutrophils % 77.8 H Seg Neuts % (Manual) Lymphocytes % (Manual) Eosinophils % (Manual) Seg Neutrophils # 8.6 H Lymphocytes # (Manual) Eosinophils # (Manual) PT INR D-Dimer POC ABG pH POC ABG pCO2 POC ABG pO2 ABG pO2 ABG HCO3 ABG Base Excess ABG Hemoglobin Oxyhemoglobin Sodium Potassium Chloride Carbon Dioxide BUN Creatinine Glucose POC Glucose 122 H 140 H Calcium Phosphorus Magnesium ALT Alkaline Phosphatase Total Creatine Kinase CK-MB (CK-2) Rel Index Troponin T Albumin LDL Cholesterol Direct PTH Intact Salicylates Acetaminophen Crossmatch 05/07/19 05/07/19 05/08/19 16:41 23:55 05:10 WBC 11.6 H RBC 3.54 L Hgb 9.1 L Hct 29.1 L MCV 82 L MCH 26 L MCHC 31 L RDW 19.6 H Plt Count Lymph % (Auto) 6.6 L [place] % (Auto) Eos % (Auto) Baso % (Auto) 1.9 H Lymph # 0.8 L [place] # Eos # Baso # 0.2 H Seg Neutrophils % 82.6 H Seg Neuts % (Manual) Lymphocytes % (Manual) Eosinophils % (Manual) Seg Neutrophils # 9.6 H Lymphocytes # (Manual) Eosinophils # (Manual) PT INR D-Dimer POC ABG pH POC ABG pCO2 POC ABG pO2 ABG pO2 ABG HCO3 ABG Base Excess ABG Hemoglobin Oxyhemoglobin Sodium Potassium Chloride Carbon Dioxide BUN Creatinine Glucose POC Glucose 143 H 153 H Calcium Phosphorus Magnesium ALT Alkaline Phosphatase Total Creatine Kinase CK-MB (CK-2) Rel Index Troponin T Albumin LDL Cholesterol Direct PTH Intact Salicylates Acetaminophen Crossmatch 05/08/19 05/08/19 05/09/19 06:09 16:55 03:27 WBC RBC Hgb Hct MCV MCH MCHC RDW Plt Count Lymph % (Auto) [place] % (Auto) Eos % (Auto) Baso % (Auto) Lymph # [place] # Eos # Baso # Seg Neutrophils % Seg Neuts % (Manual) Lymphocytes % (Manual) Eosinophils % (Manual) Seg Neutrophils # Lymphocytes # (Manual) Eosinophils # (Manual) PT INR D-Dimer POC ABG pH POC ABG pCO2 POC ABG pO2 ABG pO2 ABG HCO3 ABG Base Excess ABG Hemoglobin Oxyhemoglobin Sodium Potassium Chloride Carbon Dioxide BUN Creatinine Glucose POC Glucose 204 H 196 H 175 H Calcium Phosphorus Magnesium ALT Alkaline Phosphatase Total Creatine Kinase CK-MB (CK-2) Rel Index Troponin T Albumin LDL Cholesterol Direct PTH Intact Salicylates Acetaminophen Crossmatch 05/09/19 05/09/19 05/09/19 06:00 11:00 12:41 WBC 12.0 H RBC Hgb 9.7 L Hct 30.2 L MCV 83 L MCH 26 L MCHC RDW 20.1 H Plt Count Lymph % (Auto) 7.4 L [place] % (Auto) 7.6 H Eos % (Auto) Baso % (Auto) Lymph # 0.9 L [place] # 0.9 H Eos # Baso # Seg Neutrophils % 80.7 H Seg Neuts % (Manual) Lymphocytes % (Manual) Eosinophils % (Manual) Seg Neutrophils # 9.7 H Lymphocytes # (Manual) Eosinophils # (Manual) PT INR D-Dimer POC ABG pH POC ABG pCO2 POC ABG pO2 ABG pO2 ABG HCO3 ABG Base Excess ABG Hemoglobin Oxyhemoglobin Sodium Potassium Chloride Carbon Dioxide BUN Creatinine Glucose POC Glucose 172 H 168 H Calcium Phosphorus Magnesium ALT Alkaline Phosphatase Total Creatine Kinase CK-MB (CK-2) Rel Index Troponin T Albumin LDL Cholesterol Direct PTH Intact Salicylates Acetaminophen Crossmatch 05/09/19 05/10/19 05/10/19 17:45 01:26 06:07 WBC RBC Hgb Hct MCV MCH MCHC RDW Plt Count Lymph % (Auto) [place] % (Auto) Eos % (Auto) Baso % (Auto) Lymph # [place] # Eos # Baso # Seg Neutrophils % Seg Neuts % (Manual) Lymphocytes % (Manual) Eosinophils % (Manual) Seg Neutrophils # Lymphocytes # (Manual) Eosinophils # (Manual) PT INR D-Dimer POC ABG pH POC ABG pCO2 POC ABG pO2 ABG pO2 ABG HCO3 ABG Base Excess ABG Hemoglobin Oxyhemoglobin Sodium Potassium Chloride Carbon Dioxide BUN Creatinine Glucose POC Glucose 167 H 174 H 179 H Calcium Phosphorus Magnesium ALT Alkaline Phosphatase Total Creatine Kinase CK-MB (CK-2) Rel Index Troponin T Albumin LDL Cholesterol Direct PTH Intact Salicylates Acetaminophen Crossmatch 05/10/19 05/10/19 05/10/19 06:45 12:31 17:18 WBC RBC Hgb Hct MCV MCH MCHC RDW Plt Count Lymph % (Auto) [place] % (Auto) Eos % (Auto) Baso % (Auto) Lymph # [place] # Eos # Baso # Seg Neutrophils % Seg Neuts % (Manual) Lymphocytes % (Manual) Eosinophils % (Manual) Seg Neutrophils # Lymphocytes # (Manual) Eosinophils # (Manual) PT INR D-Dimer POC ABG pH POC ABG pCO2 POC ABG pO2 ABG pO2 ABG HCO3 ABG Base Excess ABG Hemoglobin Oxyhemoglobin Sodium 134 L Potassium Chloride 90.2 L Carbon Dioxide BUN 82 H Creatinine 4.1 H Glucose 195 H POC Glucose 201 H 197 H Calcium Phosphorus Magnesium ALT Alkaline Phosphatase Total Creatine Kinase CK-MB (CK-2) Rel Index Troponin T Albumin LDL Cholesterol Direct PTH Intact Salicylates Acetaminophen Crossmatch 05/11/19 05/11/19 05/11/19 00:20 06:30 17:38 WBC RBC Hgb Hct MCV MCH MCHC RDW Plt Count Lymph % (Auto) [place] % (Auto) Eos % (Auto) Baso % (Auto) Lymph # [place] # Eos # Baso # Seg Neutrophils % Seg Neuts % (Manual) Lymphocytes % (Manual) Eosinophils % (Manual) Seg Neutrophils # Lymphocytes # (Manual) Eosinophils # (Manual) PT INR D-Dimer POC ABG pH POC ABG pCO2 POC ABG pO2 ABG pO2 ABG HCO3 ABG Base Excess ABG Hemoglobin Oxyhemoglobin Sodium Potassium Chloride Carbon Dioxide BUN Creatinine Glucose POC Glucose 131 H 148 H 198 H Calcium Phosphorus Magnesium ALT Alkaline Phosphatase Total Creatine Kinase CK-MB (CK-2) Rel Index Troponin T Albumin LDL Cholesterol Direct PTH Intact Salicylates Acetaminophen Crossmatch 05/12/19 05/12/19 05/12/19 00:44 06:13 07:15 WBC RBC 3.32 L Hgb 8.7 L Hct 27.8 L MCV MCH 26 L MCHC 31 L RDW 19.8 H Plt Count Lymph % (Auto) 6.9 L [place] % (Auto) Eos % (Auto) 6.5 H Baso % (Auto) Lymph # 0.7 L [place] # Eos # 0.6 H Baso # Seg Neutrophils % 78.6 H Seg Neuts % (Manual) Lymphocytes % (Manual) Eosinophils % (Manual) Seg Neutrophils # 7.8 H Lymphocytes # (Manual) Eosinophils # (Manual) PT INR D-Dimer POC ABG pH POC ABG pCO2 POC ABG pO2 ABG pO2 ABG HCO3 ABG Base Excess ABG Hemoglobin Oxyhemoglobin Sodium Potassium Chloride Carbon Dioxide BUN Creatinine Glucose POC Glucose 170 H 133 H Calcium Phosphorus Magnesium ALT Alkaline Phosphatase Total Creatine Kinase CK-MB (CK-2) Rel Index Troponin T Albumin LDL Cholesterol Direct PTH Intact Salicylates Acetaminophen Crossmatch 05/12/19 05/12/19 05/12/19 07:15 11:17 17:37 WBC RBC Hgb Hct MCV MCH MCHC RDW Plt Count Lymph % (Auto) [place] % (Auto) Eos % (Auto) Baso % (Auto) Lymph # [place] # Eos # Baso # Seg Neutrophils % Seg Neuts % (Manual) Lymphocytes % (Manual) Eosinophils % (Manual) Seg Neutrophils # Lymphocytes # (Manual) Eosinophils # (Manual) PT INR D-Dimer POC ABG pH POC ABG pCO2 POC ABG pO2 ABG pO2 ABG HCO3 ABG Base Excess ABG Hemoglobin Oxyhemoglobin Sodium 135 L Potassium Chloride 94.2 L Carbon Dioxide BUN 59 H Creatinine 3.4 H Glucose 134 H POC Glucose 132 H 165 H Calcium Phosphorus Magnesium ALT Alkaline Phosphatase Total Creatine Kinase CK-MB (CK-2) Rel Index Troponin T Albumin LDL Cholesterol Direct PTH Intact Salicylates Acetaminophen Crossmatch 05/13/19 05/13/19 05/13/19 00:15 05:44 16:00 WBC RBC Hgb Hct MCV MCH MCHC RDW Plt Count Lymph % (Auto) [place] % (Auto) Eos % (Auto) Baso % (Auto) Lymph # [place] # Eos # Baso # Seg Neutrophils % Seg Neuts % (Manual) Lymphocytes % (Manual) Eosinophils % (Manual) Seg Neutrophils # Lymphocytes # (Manual) Eosinophils # (Manual) PT INR D-Dimer POC ABG pH POC ABG pCO2 POC ABG pO2 ABG pO2 ABG HCO3 ABG Base Excess ABG Hemoglobin Oxyhemoglobin Sodium Potassium Chloride Carbon Dioxide BUN Creatinine Glucose POC Glucose 144 H 133 H 221 H Calcium Phosphorus Magnesium ALT Alkaline Phosphatase Total Creatine Kinase CK-MB (CK-2) Rel Index Troponin T Albumin LDL Cholesterol Direct PTH Intact Salicylates Acetaminophen Crossmatch 05/14/19 05/14/19 05/14/19 06:44 11:56 16:42 WBC RBC Hgb Hct MCV MCH MCHC RDW Plt Count Lymph % (Auto) [place] % (Auto) Eos % (Auto) Baso % (Auto) Lymph # [place] # Eos # Baso # Seg Neutrophils % Seg Neuts % (Manual) Lymphocytes % (Manual) Eosinophils % (Manual) Seg Neutrophils # Lymphocytes # (Manual) Eosinophils # (Manual) PT INR D-Dimer POC ABG pH POC ABG pCO2 POC ABG pO2 ABG pO2 ABG HCO3 ABG Base Excess ABG Hemoglobin Oxyhemoglobin Sodium Potassium Chloride Carbon Dioxide BUN Creatinine Glucose POC Glucose 187 H 141 H 183 H Calcium Phosphorus Magnesium ALT Alkaline Phosphatase Total Creatine Kinase CK-MB (CK-2) Rel Index Troponin T Albumin LDL Cholesterol Direct PTH Intact Salicylates Acetaminophen Crossmatch 05/15/19 05/15/19 05/15/19 00:11 05:55 18:46 WBC RBC Hgb Hct MCV MCH MCHC RDW Plt Count Lymph % (Auto) [place] % (Auto) Eos % (Auto) Baso % (Auto) Lymph # [place] # Eos # Baso # Seg Neutrophils % Seg Neuts % (Manual) Lymphocytes % (Manual) Eosinophils % (Manual) Seg Neutrophils # Lymphocytes # (Manual) Eosinophils # (Manual) PT INR D-Dimer POC ABG pH POC ABG pCO2 POC ABG pO2 ABG pO2 ABG HCO3 ABG Base Excess ABG Hemoglobin Oxyhemoglobin Sodium Potassium Chloride Carbon Dioxide BUN Creatinine Glucose POC Glucose 169 H 119 H 173 H Calcium Phosphorus Magnesium ALT Alkaline Phosphatase Total Creatine Kinase CK-MB (CK-2) Rel Index Troponin T Albumin LDL Cholesterol Direct PTH Intact Salicylates Acetaminophen Crossmatch 05/16/19 05/16/19 05/16/19 00:18 06:17 12:47 WBC RBC Hgb Hct MCV MCH MCHC RDW Plt Count Lymph % (Auto) [place] % (Auto) Eos % (Auto) Baso % (Auto) Lymph # [place] # Eos # Baso # Seg Neutrophils % Seg Neuts % (Manual) Lymphocytes % (Manual) Eosinophils % (Manual) Seg Neutrophils # Lymphocytes # (Manual) Eosinophils # (Manual) PT INR D-Dimer POC ABG pH POC ABG pCO2 POC ABG pO2 ABG pO2 ABG HCO3 ABG Base Excess ABG Hemoglobin Oxyhemoglobin Sodium Potassium Chloride Carbon Dioxide BUN Creatinine Glucose POC Glucose 201 H 149 H 207 H Calcium Phosphorus Magnesium ALT Alkaline Phosphatase Total Creatine Kinase CK-MB (CK-2) Rel Index Troponin T Albumin LDL Cholesterol Direct PTH Intact Salicylates Acetaminophen Crossmatch 05/16/19 05/17/19 05/17/19 17:48 00:01 06:26 WBC RBC Hgb Hct MCV MCH MCHC RDW Plt Count Lymph % (Auto) [place] % (Auto) Eos % (Auto) Baso % (Auto) Lymph # [place] # Eos # Baso # Seg Neutrophils % Seg Neuts % (Manual) Lymphocytes % (Manual) Eosinophils % (Manual) Seg Neutrophils # Lymphocytes # (Manual) Eosinophils # (Manual) PT INR D-Dimer POC ABG pH POC ABG pCO2 POC ABG pO2 ABG pO2 ABG HCO3 ABG Base Excess ABG Hemoglobin Oxyhemoglobin Sodium Potassium Chloride Carbon Dioxide BUN Creatinine Glucose POC Glucose 183 H 176 H 177 H Calcium Phosphorus Magnesium ALT Alkaline Phosphatase Total Creatine Kinase CK-MB (CK-2) Rel Index Troponin T Albumin LDL Cholesterol Direct PTH Intact Salicylates Acetaminophen Crossmatch 05/17/19 05/17/19 05/18/19 12 17:45 00:30 WBC RBC Hgb Hct MCV MCH MCHC RDW Plt Count Lymph % (Auto) [place] % (Auto) Eos % (Auto) Baso % (Auto) Lymph # [place] # Eos # Baso # Seg Neutrophils % Seg Neuts % (Manual) Lymphocytes % (Manual) Eosinophils % (Manual) Seg Neutrophils # Lymphocytes # (Manual) Eosinophils # (Manual) PT INR D-Dimer POC ABG pH POC ABG pCO2 POC ABG pO2 ABG pO2 ABG HCO3 ABG Base Excess ABG Hemoglobin Oxyhemoglobin Sodium Potassium Chloride Carbon Dioxide BUN Creatinine Glucose POC Glucose 174 H 171 H 181 H Calcium Phosphorus Magnesium ALT Alkaline Phosphatase Total Creatine Kinase CK-MB (CK-2) Rel Index Troponin T Albumin LDL Cholesterol Direct PTH Intact Salicylates Acetaminophen Crossmatch 05/18/19 05/18/19 05/19/19 06:18 16:53 00:19 WBC RBC Hgb Hct MCV MCH MCHC RDW Plt Count Lymph % (Auto) [place] % (Auto) Eos % (Auto) Baso % (Auto) Lymph # [place] # Eos # Baso # Seg Neutrophils % Seg Neuts % (Manual) Lymphocytes % (Manual) Eosinophils % (Manual) Seg Neutrophils # Lymphocytes # (Manual) Eosinophils # (Manual) PT INR D-Dimer POC ABG pH POC ABG pCO2 POC ABG pO2 ABG pO2 ABG HCO3 ABG Base Excess ABG Hemoglobin Oxyhemoglobin Sodium Potassium Chloride Carbon Dioxide BUN Creatinine Glucose POC Glucose 165 H 166 H 207 H Calcium Phosphorus Magnesium ALT Alkaline Phosphatase Total Creatine Kinase CK-MB (CK-2) Rel Index Troponin T Albumin LDL Cholesterol Direct PTH Intact Salicylates Acetaminophen Crossmatch 05/19/19 05/19/19 05/19/19 01:00 01:00 05:15 WBC 11.6 H RBC 3.12 L Hgb 7.9 L Hct 25.9 L MCV 83 L MCH 25 L MCHC 31 L RDW 21.1 H Plt Count Lymph % (Auto) [place] % (Auto) Eos % (Auto) Baso % (Auto) Lymph # [place] # Eos # Baso # Seg Neutrophils % Seg Neuts % (Manual) Lymphocytes % (Manual) Eosinophils % (Manual) Seg Neutrophils # Lymphocytes # (Manual) Eosinophils # (Manual) PT INR D-Dimer POC ABG pH POC ABG pCO2 POC ABG pO2 ABG pO2 ABG HCO3 ABG Base Excess ABG Hemoglobin Oxyhemoglobin Sodium 135 L Potassium Chloride 93.6 L Carbon Dioxide BUN 64 H Creatinine 2.8 H Glucose 194 H POC Glucose 176 H Calcium Phosphorus Magnesium ALT Alkaline Phosphatase Total Creatine Kinase CK-MB (CK-2) Rel Index Troponin T Albumin LDL Cholesterol Direct PTH Intact Salicylates Acetaminophen Crossmatch 05/19/19 05/19/19 05/20/19 11:21 18:48 00:01 WBC RBC Hgb Hct MCV MCH MCHC RDW Plt Count Lymph % (Auto) [place] % (Auto) Eos % (Auto) Baso % (Auto) Lymph # [place] # Eos # Baso # Seg Neutrophils % Seg Neuts % (Manual) Lymphocytes % (Manual) Eosinophils % (Manual) Seg Neutrophils # Lymphocytes # (Manual) Eosinophils # (Manual) PT INR D-Dimer POC ABG pH POC ABG pCO2 POC ABG pO2 ABG pO2 ABG HCO3 ABG Base Excess ABG Hemoglobin Oxyhemoglobin Sodium Potassium Chloride Carbon Dioxide BUN Creatinine Glucose POC Glucose 162 H 140 H 200 H Calcium Phosphorus Magnesium ALT Alkaline Phosphatase Total Creatine Kinase CK-MB (CK-2) Rel Index Troponin T Albumin LDL Cholesterol Direct PTH Intact Salicylates Acetaminophen Crossmatch 05/20/19 05/20/19 05/21/19 05:58 17:50 00:43 WBC RBC Hgb Hct MCV MCH MCHC RDW Plt Count Lymph % (Auto) [place] % (Auto) Eos % (Auto) Baso % (Auto) Lymph # [place] # Eos # Baso # Seg Neutrophils % Seg Neuts % (Manual) Lymphocytes % (Manual) Eosinophils % (Manual) Seg Neutrophils # Lymphocytes # (Manual) Eosinophils # (Manual) PT INR D-Dimer POC ABG pH POC ABG pCO2 POC ABG pO2 ABG pO2 ABG HCO3 ABG Base Excess ABG Hemoglobin Oxyhemoglobin Sodium Potassium Chloride Carbon Dioxide BUN Creatinine Glucose POC Glucose 132 H 154 H 165 H Calcium Phosphorus Magnesium ALT Alkaline Phosphatase Total Creatine Kinase CK-MB (CK-2) Rel Index Troponin T Albumin LDL Cholesterol Direct PTH Intact Salicylates Acetaminophen Crossmatch 05/21/19 05/21/19 05/21/19 06:06 11:15 17:04 WBC RBC Hgb Hct MCV MCH MCHC RDW Plt Count Lymph % (Auto) [place] % (Auto) Eos % (Auto) Baso % (Auto) Lymph # [place] # Eos # Baso # Seg Neutrophils % Seg Neuts % (Manual) Lymphocytes % (Manual) Eosinophils % (Manual) Seg Neutrophils # Lymphocytes # (Manual) Eosinophils # (Manual) PT INR D-Dimer POC ABG pH POC ABG pCO2 POC ABG pO2 ABG pO2 ABG HCO3 ABG Base Excess ABG Hemoglobin Oxyhemoglobin Sodium Potassium Chloride Carbon Dioxide BUN Creatinine Glucose POC Glucose 178 H 218 H 135 H Calcium Phosphorus Magnesium ALT Alkaline Phosphatase Total Creatine Kinase CK-MB (CK-2) Rel Index Troponin T Albumin LDL Cholesterol Direct PTH Intact Salicylates Acetaminophen Crossmatch 05/21/19 05/22/19 05/22/19 23:25 06:09 18:32 WBC RBC Hgb Hct MCV MCH MCHC RDW Plt Count Lymph % (Auto) [place] % (Auto) Eos % (Auto) Baso % (Auto) Lymph # [place] # Eos # Baso # Seg Neutrophils % Seg Neuts % (Manual) Lymphocytes % (Manual) Eosinophils % (Manual) Seg Neutrophils # Lymphocytes # (Manual) Eosinophils # (Manual) PT INR D-Dimer POC ABG pH POC ABG pCO2 POC ABG pO2 ABG pO2 ABG HCO3 ABG Base Excess ABG Hemoglobin Oxyhemoglobin Sodium Potassium Chloride Carbon Dioxide BUN Creatinine Glucose POC Glucose 221 H 140 H 216 H Calcium Phosphorus Magnesium ALT Alkaline Phosphatase Total Creatine Kinase CK-MB (CK-2) Rel Index Troponin T Albumin LDL Cholesterol Direct PTH Intact Salicylates Acetaminophen Crossmatch 05/22/19 05/23/19 05/23/19 23:56 05:23 12:46 WBC RBC Hgb Hct MCV MCH MCHC RDW Plt Count Lymph % (Auto) [place] % (Auto) Eos % (Auto) Baso % (Auto) Lymph # [place] # Eos # Baso # Seg Neutrophils % Seg Neuts % (Manual) Lymphocytes % (Manual) Eosinophils % (Manual) Seg Neutrophils # Lymphocytes # (Manual) Eosinophils # (Manual) PT INR D-Dimer POC ABG pH POC ABG pCO2 POC ABG pO2 ABG pO2 ABG HCO3 ABG Base Excess ABG Hemoglobin Oxyhemoglobin Sodium Potassium Chloride Carbon Dioxide BUN Creatinine Glucose POC Glucose 177 H 188 H 165 H Calcium Phosphorus Magnesium ALT Alkaline Phosphatase Total Creatine Kinase CK-MB (CK-2) Rel Index Troponin T Albumin LDL Cholesterol Direct PTH Intact Salicylates Acetaminophen Crossmatch 05/23/19 05/24/19 05/24/19 17:36 00:06 06:51 WBC RBC Hgb Hct MCV MCH MCHC RDW Plt Count Lymph % (Auto) [place] % (Auto) Eos % (Auto) Baso % (Auto) Lymph # [place] # Eos # Baso # Seg Neutrophils % Seg Neuts % (Manual) Lymphocytes % (Manual) Eosinophils % (Manual) Seg Neutrophils # Lymphocytes # (Manual) Eosinophils # (Manual) PT INR D-Dimer POC ABG pH POC ABG pCO2 POC ABG pO2 ABG pO2 ABG HCO3 ABG Base Excess ABG Hemoglobin Oxyhemoglobin Sodium Potassium Chloride Carbon Dioxide BUN Creatinine Glucose POC Glucose 204 H 155 H 169 H Calcium Phosphorus Magnesium ALT Alkaline Phosphatase Total Creatine Kinase CK-MB (CK-2) Rel Index Troponin T Albumin LDL Cholesterol Direct PTH Intact Salicylates Acetaminophen Crossmatch 05/24/19 05/24/19 05/25/19 11:33 17:47 00:03 WBC RBC Hgb Hct MCV MCH MCHC RDW Plt Count Lymph % (Auto) [place] % (Auto) Eos % (Auto) Baso % (Auto) Lymph # [place] # Eos # Baso # Seg Neutrophils % Seg Neuts % (Manual) Lymphocytes % (Manual) Eosinophils % (Manual) Seg Neutrophils # Lymphocytes # (Manual) Eosinophils # (Manual) PT INR D-Dimer POC ABG pH POC ABG pCO2 POC ABG pO2 ABG pO2 ABG HCO3 ABG Base Excess ABG Hemoglobin Oxyhemoglobin Sodium Potassium Chloride Carbon Dioxide BUN Creatinine Glucose POC Glucose 158 H 120 H 142 H Calcium Phosphorus Magnesium ALT Alkaline Phosphatase Total Creatine Kinase CK-MB (CK-2) Rel Index Troponin T Albumin LDL Cholesterol Direct PTH Intact Salicylates Acetaminophen Crossmatch 05/25/19 05/25/19 05/25/19 05:34 14:37 17:34 WBC RBC Hgb Hct MCV MCH MCHC RDW Plt Count Lymph % (Auto) [place] % (Auto) Eos % (Auto) Baso % (Auto) Lymph # [place] # Eos # Baso # Seg Neutrophils % Seg Neuts % (Manual) Lymphocytes % (Manual) Eosinophils % (Manual) Seg Neutrophils # Lymphocytes # (Manual) Eosinophils # (Manual) PT INR D-Dimer POC ABG pH POC ABG pCO2 POC ABG pO2 ABG pO2 ABG HCO3 ABG Base Excess ABG Hemoglobin Oxyhemoglobin Sodium Potassium Chloride Carbon Dioxide BUN Creatinine Glucose POC Glucose 128 H 199 H 185 H Calcium Phosphorus Magnesium ALT Alkaline Phosphatase Total Creatine Kinase CK-MB (CK-2) Rel Index Troponin T Albumin LDL Cholesterol Direct PTH Intact Salicylates Acetaminophen Crossmatch 05/26/19 05/26/19 05/26/19 06:21 11:39 17:47 WBC RBC Hgb Hct MCV MCH MCHC RDW Plt Count Lymph % (Auto) [place] % (Auto) Eos % (Auto) Baso % (Auto) Lymph # [place] # Eos # Baso # Seg Neutrophils % Seg Neuts % (Manual) Lymphocytes % (Manual) Eosinophils % (Manual) Seg Neutrophils # Lymphocytes # (Manual) Eosinophils # (Manual) PT INR D-Dimer POC ABG pH POC ABG pCO2 POC ABG pO2 ABG pO2 ABG HCO3 ABG Base Excess ABG Hemoglobin Oxyhemoglobin Sodium Potassium Chloride Carbon Dioxide BUN Creatinine Glucose POC Glucose 110 H 129 H 177 H Calcium Phosphorus Magnesium ALT Alkaline Phosphatase Total Creatine Kinase CK-MB (CK-2) Rel Index Troponin T Albumin LDL Cholesterol Direct PTH Intact Salicylates Acetaminophen Crossmatch 05/27/19 05/27/19 05/27/19 00:02 06:40 13:41 WBC RBC Hgb Hct MCV MCH MCHC RDW Plt Count Lymph % (Auto) [place] % (Auto) Eos % (Auto) Baso % (Auto) Lymph # [place] # Eos # Baso # Seg Neutrophils % Seg Neuts % (Manual) Lymphocytes % (Manual) Eosinophils % (Manual) Seg Neutrophils # Lymphocytes # (Manual) Eosinophils # (Manual) PT INR D-Dimer POC ABG pH POC ABG pCO2 POC ABG pO2 ABG pO2 ABG HCO3 ABG Base Excess ABG Hemoglobin Oxyhemoglobin Sodium Potassium Chloride Carbon Dioxide BUN Creatinine Glucose POC Glucose 142 H 186 H 208 H Calcium Phosphorus Magnesium ALT Alkaline Phosphatase Total Creatine Kinase CK-MB (CK-2) Rel Index Troponin T Albumin LDL Cholesterol Direct PTH Intact Salicylates Acetaminophen Crossmatch 05/27/19 05/27/19 05/28/19 17:03 23:36 06:46 WBC RBC Hgb Hct MCV MCH MCHC RDW Plt Count Lymph % (Auto) [place] % (Auto) Eos % (Auto) Baso % (Auto) Lymph # [place] # Eos # Baso # Seg Neutrophils % Seg Neuts % (Manual) Lymphocytes % (Manual) Eosinophils % (Manual) Seg Neutrophils # Lymphocytes # (Manual) Eosinophils # (Manual) PT INR D-Dimer POC ABG pH POC ABG pCO2 POC ABG pO2 ABG pO2 ABG HCO3 ABG Base Excess ABG Hemoglobin Oxyhemoglobin Sodium Potassium Chloride Carbon Dioxide BUN Creatinine Glucose POC Glucose 195 H 169 H 125 H Calcium Phosphorus Magnesium ALT Alkaline Phosphatase Total Creatine Kinase CK-MB (CK-2) Rel Index Troponin T Albumin LDL Cholesterol Direct PTH Intact Salicylates Acetaminophen Crossmatch 05/28/19 05/28/19 05/28/19 10:57 10:57 10:57 WBC 11.4 H RBC 3.05 L Hgb 7.9 L Hct 24.9 L MCV 82 L MCH 26 L MCHC RDW 21.6 H Plt Count Lymph % (Auto) 7.5 L [place] % (Auto) 7.8 H Eos % (Auto) Baso % (Auto) Lymph # 0.9 L [place] # 0.9 H Eos # 0.5 H Baso # Seg Neutrophils % 79.5 H Seg Neuts % (Manual) Lymphocytes % (Manual) Eosinophils % (Manual) Seg Neutrophils # 9.1 H Lymphocytes # (Manual) Eosinophils # (Manual) PT INR D-Dimer POC ABG pH POC ABG pCO2 POC ABG pO2 ABG pO2 ABG HCO3 ABG Base Excess ABG Hemoglobin Oxyhemoglobin Sodium Potassium Chloride 94.0 L Carbon Dioxide BUN 53 H Creatinine 2.9 H Glucose 147 H POC Glucose Calcium Phosphorus Magnesium ALT Alkaline Phosphatase 170 H Total Creatine Kinase CK-MB (CK-2) Rel Index Troponin T Albumin 2.2 L LDL Cholesterol Direct PTH Intact 199.5 H Salicylates Acetaminophen Crossmatch 05/28/19 12:02 WBC RBC Hgb Hct MCV MCH MCHC RDW Plt Count Lymph % (Auto) [place] % (Auto) Eos % (Auto) Baso % (Auto) Lymph # [place] # Eos # Baso # Seg Neutrophils % Seg Neuts % (Manual) Lymphocytes % (Manual) Eosinophils % (Manual) Seg Neutrophils # Lymphocytes # (Manual) Eosinophils # (Manual) PT INR D-Dimer POC ABG pH POC ABG pCO2 POC ABG pO2 ABG pO2 ABG HCO3 ABG Base Excess ABG Hemoglobin Oxyhemoglobin Sodium Potassium Chloride Carbon Dioxide BUN Creatinine Glucose POC Glucose 181 H Calcium Phosphorus Magnesium ALT Alkaline Phosphatase Total Creatine Kinase CK-MB (CK-2) Rel Index Troponin T Albumin LDL Cholesterol Direct PTH Intact Salicylates Acetaminophen Crossmatch
[2019-05-28] MEDS: ACETAMINOPHEN 325 MG TAB PO PRN (16:57)
[2019-05-28 18:11] LABS: Hepatitis B Surface Antigen Non-Reactive (Negative); Hepatitis C Virus Antibody Non-Reactive (NonReactive)
--- NOTE | 2019-05-28 18:11 | Progress Note ---
Assessment and Plan Assessment and plan: Patient is a 63-year-old -Citizen Of [place] man from [facility] with a plethora of co-morbidities including blindness, CVA, CHF, PPM/ICD, loop recorder since 2012 that is MRI compatible, IDDM type 2, sepsis left foot ulcer, afib, ESRD with complications on HD TTS, hypertension, AOCD and GERD who presented to the ED with hypotensive after intubation in the emergency room. Still intubated, diagnosed with fluid overload, pleural effusion. Patient has had recurrent admission in the hospital for similar reason and was recently discharged from the hospital following treatment of Severe Sepsis due to Necrotizing Unstagable sacral decubitus ulcer with ostemomylitis, expected to complete abx on discharg e till 02/16/19. Trach and peg done HR control improved with change in BB. Acute respiratory failure on mechanical ventilator >96 hrs Trach placed on 03/03/19 Pulm consult appreciated weaning trial VAP BUNDLE ASPIRATION BUNDLE Continue T-piece Finished therapy for Acinetobacter Acute pulmonary edema, fluid overload on CXR repeat xray intermittently Dialysis Necrotizing Unstagable sacral decubitus ulcer with ostemomyelitis Wound care, Dilated CMP Cardiomyiopathy EF 35-40% Continue diuresis PPM/ICD Acute encephalopathy, probably metabolic or toxic Continues on Mechanical ventilator. ESRD on hemodialysis nephrology following Vascular eval. done re: LUE AV graft, see note Bilateral pleural effusions Anticipate improvement with Permanent atrial fibrillation and flutter Not on anticoagulation because of anemia thrombocytopenia Change noted to BB agent to IV. Diabetes mellitus type 2 Fingerstick Q4h NSTEMI type 2 Cardiology following Schizophrenia continue home meds Legally blind supportive care hypertension Monitor BP Hypokalemia resolved Pulmonary hypertension by history Dysphagia s/p PEG tube Severe malnutrition/hypoalbuminemia with FTT: 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, game trapper following PEG placed on 01/02/19 Decubitus ulcer s/;p colostomy wound care consult History of sacral osteomyelitis and LE ulcers Completed Antibiotics Place on contact isolation for ESBL Klebsiella pneumonia on wound culture 01/02/19 h/o Peripheral neuropathy: Continue gabapentin Anemia of chronic disease -s/p total of 8 units PRBC, follow cbc- no occult GI bleed noted. -Pt is s/p x1 DDVAP RUL atelectasis, nebs as needed DVT prophylaxis Lovenox DNR poor prognosis Disposition: Awaiting on SNF HD setup I spoke with his nephrew Jennifer Mims, Director of our Lab History Interval history: Patient was seen and examined. Follow-up on current diagnosis. No overnight events reported to me. Patient is mainly nonverbal. Imaging, nursing note, chart, labs and old chart reviewed. Hospitalist Physical - Physical exam Narrative exam: Gen: severely disable, nad, awake alert x 1 HEENT: NCAT, EOMI, PERRL, OP Clear Neck: supple, trach CVS/Heart: irreg irregular, normal S1S2, pulses present bilaterally Chest/Lungs: diminished bs ymmetrical chest expansion, good air entry bilaterally GI/Abdomen:peg, colostomy present, good bowel sounds, no guarding or rebound /Bladder: no suprapubic tenderness, no CVA or paraspinal tenderness Extermity/Skin: no c/c/e, no obvious rash MSK: no FROM x 4 Neuro: CN 2-12 grossly intact except vision, no new focal deficits Psych: calm - Constitutional Vitals: Temp Pulse Resp BP Pulse Ox 100.1 F H 129 H 20 116/66 97 05/28/19 16:29 05/28/19 16:29 05/28/19 16:29 05/28/19 16:29 05/28/19 16:29 General appearance: Present: no acute distress, other (T peace). Absent: well- nourished Results - Labs CBC & Chem 7: 05/28/19 10:57 05/28/19 10:57 Labs: Laboratory Last Values WBC 11.4 K/mm3 (4.5-11.0) H 05/28/19 10:57 RBC 3.05 M/mm3 (3.65-5.03) L 05/28/19 10:57 Hgb 7.9 gm/dl (11.8-15.2) L 05/28/19 10:57 Hct 24.9 % (35.5-45.6) L 05/28/19 10:57 MCV 82 fl (84-94) L 05/28/19 10:57 MCH 26 pg (28-32) L 05/28/19 10:57 MCHC 32 % (32-34) 05/28/19 10:57 RDW 21.6 % (13.2-15.2) H 05/28/19 10:57 Plt Count 427 K/mm3 (140-440) 05/28/19 10:57 Lymph % (Auto) 7.5 % (13.4-35.0) L 05/28/19 10:57 [place] % (Auto) 7.8 % (0.0-7.3) H 05/28/19 10:57 Eos % (Auto) 4.2 % (0.0-4.3) 05/28/19 10:57 Baso % (Auto) 1.0 % (0.0-1.8) 05/28/19 10:57 Lymph # 0.9 K/mm3 (1.2-5.4) L 05/28/19 10:57 [place] # 0.9 K/mm3 (0.0-0.8) H 05/28/19 10:57 Eos # 0.5 K/mm3 (0.0-0.4) H 05/28/19 10:57 Baso # 0.1 K/mm3 (0.0-0.1) 05/28/19 10:57 Add Manual Diff Complete 03/21/19 06:30 Total Counted 100 03/21/19 06:30 Seg Neutrophils % 79.5 % (40.0-70.0) H 05/28/19 10:57 Seg Neuts % (Manual) 81.0 % (40.0-70.0) H 03/21/19 06:30 Band Neutrophils % 0 % 03/21/19 06:30 Lymphocytes % (Manual) 8.0 % (13.4-35.0) L 03/21/19 06:30 Reactive Lymphs % (Man) 0 % 03/21/19 06:30 Monocytes % (Manual) 1.0 % (0.0-7.3) 03/21/19 06:30 Eosinophils % (Manual) 8.0 % (0.0-4.3) H 03/21/19 06:30 Basophils % (Manual) 1.0 % (0.0-1.8) 03/21/19 06:30 Metamyelocytes % 1.0 % 03/21/19 06:30 Myelocytes % 0 % 03/21/19 06:30 Promyelocytes % 0 % 03/21/19 06:30 Blast Cells % 0 % 03/21/19 06:30 Nucleated RBC % Not Reportable 03/21/19 06:30 Seg Neutrophils # 9.1 K/mm3 (1.8-7.7) H 05/28/19 10:57 Seg Neutrophils # Man 6.7 K/mm3 (1.8-7.7) 03/21/19 06:30 Band Neutrophils # 0.0 K/mm3 03/21/19 06:30 Lymphocytes # (Manual) 0.7 K/mm3 (1.2-5.4) L 03/21/19 06:30 Abs React Lymphs (Man) 0.0 K/mm3 03/21/19 06:30 Monocytes # (Manual) 0.1 K/mm3 (0.0-0.8) 03/21/19 06:30 Eosinophils # (Manual) 0.7 K/mm3 (0.0-0.4) H 03/21/19 06:30 Basophils # (Manual) 0.1 K/mm3 (0.0-0.1) 03/21/19 06:30 Metamyelocytes # 0.1 K/mm3 03/21/19 06:30 Myelocytes # 0.0 K/mm3 03/21/19 06:30 Promyelocytes # 0.0 K/mm3 03/21/19 06:30 Blast Cells # 0.0 K/mm3 03/21/19 06:30 WBC Morphology Not Reportable 03/21/19 06:30 Hypersegmented Neuts Not Reportable 03/21/19 06:30 Hyposegmented Neuts Not Reportable 03/21/19 06:30 Hypogranular Neuts Not Reportable 03/21/19 06:30 Smudge Cells Not Reportable 03/21/19 06:30 Toxic Granulation Not Reportable 03/21/19 06:30 Toxic Vacuolation Not Reportable 03/21/19 06:30 Dohle Bodies Not Reportable 03/21/19 06:30 Pelger-Huet Anomaly Not Reportable 03/21/19 06:30 Tramaine Rods Not Reportable 03/21/19 06:30 Platelet Estimate Consistent w auto 03/21/19 06:30 Clumped Platelets Not Reportable 03/21/19 06:30 Plt Clumps, EDTA Not Reportable 03/21/19 06:30 Large Platelets Not Reportable 03/21/19 06:30 Giant Platelets Not Reportable 03/21/19 06:30 Platelet Satelliting Not Reportable 03/21/19 06:30 Plt Morphology Comment Not Reportable 03/21/19 06:30 RBC Morphology Not Reportable 03/21/19 06:30 Dimorphic RBCs Not Reportable 03/21/19 06:30 Polychromasia Not Reportable 03/21/19 06:30 Hypochromasia Few 03/21/19 06:30 Poikilocytosis Few 03/21/19 06:30 Anisocytosis Few 03/21/19 06:30 Microcytosis Not Reportable 03/21/19 06:30 Macrocytosis Not Reportable 03/21/19 06:30 Spherocytes Not Reportable 03/21/19 06:30 Pappenheimer Bodies Not Reportable 03/21/19 06:30 Sickle Cells Not Reportable 03/21/19 06:30 Target Cells 1+ 03/21/19 06:30 Tear Drop Cells Not Reportable 03/21/19 06:30 Ovalocytes Few 03/21/19 06:30 Helmet Cells Not Reportable 03/21/19 06:30 Zhou-Olivarez Bodies Not Reportable 03/21/19 06:30 [place] Rings Not Reportable 03/21/19 06:30 [place] Cells Not Reportable 03/21/19 06:30 Bite Cells Not Reportable 03/21/19 06:30 Crenated Cell Not Reportable 03/21/19 06:30 Elliptocytes Not Reportable 03/21/19 06:30 Acanthocytes (Spur) Not Reportable 03/21/19 06:30 Rouleaux Not Reportable 03/21/19 06:30 Hemoglobin C Crystals Not Reportable 03/21/19 06:30 Schistocytes Not Reportable 03/21/19 06:30 Malaria parasites Not Reportable 03/21/19 06:30 Jose Juan Bodies Not Reportable 03/21/19 06:30 Hem Pathologist Commnt No 03/21/19 06:30 PT 16.3 Sec. (12.2-14.9) H 03/01/19 09:39 INR 1.35 (0.87-1.13) H 03/01/19 09:39 APTT 33.7 Sec. (24.2-36.6) 02/21/19 18:30 D-Dimer 2987.82 ng/mlDDU (0-234) H 02/22/19 05:54 POC ABG pH 7.510 (7.35-7.45) H 03/18/19 06:38 ABG pH 7.424 pH Units (7.350-7.450) 03/19/19 04:23 POC ABG pCO2 38.9 (35-45) 03/18/19 06:38 ABG pCO2 48.0 mm Hg 03/19/19 04:23 POC ABG pO2 164 (80-105) H 03/18/19 06:38 ABG pO2 78.3 mm Hg (80.0-90.0) L 03/19/19 04:23 POC ABG HCO3 31.0 (22-26 mml/L) 03/18/19 06:38 ABG HCO3 30.7 mmol/L (20.0-26.0) H 03/19/19 04:23 POC ABG Total CO2 32 (23-27mmol/L) 03/18/19 06:38 POC ABG O2 Sat 100 03/18/19 06:38 ABG O2 Saturation 97.0 % (95.0-99.0) 03/19/19 04:23 ABG O2 Content 7.9 (0.0-44) 03/19/19 04:23 POC ABG Base Excess 8 ((-2) - (+3)mmol/L) 03/18/19 06:38 ABG Base Excess 5.8 mmol/L (-2.0-3.0) H 03/19/19 04:23 ABG Hemoglobin 5.8 gm/dl (14.0-18.0) L 03/19/19 04:23 ABG Carboxyhemoglobin 2.0 % (0.0-5.0) 03/19/19 04:23 ABG Methemoglobin 0.4 % (0.0-1.5) 03/19/19 04:23 Oxyhemoglobin 94.6 % (95.0-99.0) L 03/19/19 04:23 FiO2 35 % 03/19/19 04:23 Sodium 137 mmol/L (137-145) 05/28/19 10:57 Potassium 3.6 mmol/L (3.6-5.0) 05/28/19 10:57 Chloride 94.0 mmol/L (98-107) L 05/28/19 10:57 Carbon Dioxide 28 mmol/L (22-30) 05/28/19 10:57 Anion Gap 19 mmol/L 05/28/19 10:57 BUN 53 mg/dL (9-20) H 05/28/19 10:57 Creatinine 2.9 mg/dL (0.8-1.5) H 05/28/19 10:57 Estimated GFR 27 ml/min 05/28/19 10:57 BUN/Creatinine Ratio 18 % 05/28/19 10:57 Glucose 147 mg/dL (75-100) H 05/28/19 10:57 POC Glucose 217 (70-105) H 05/28/19 16:37 Lactic Acid 1.00 mmol/L (0.7-2.0) 02/21/19 20:58 Calcium 10.2 mg/dL (8.4-10.2) 05/28/19 10:57 Phosphorus 2.60 mg/dL (2.5-4.5) 05/28/19 10:57 Magnesium 2.70 mg/dL (1.7-2.3) H 03/30/19 10:13 Total Bilirubin 0.30 mg/dL (0.1-1.2) 05/28/19 10:57 AST 25 units/L (5-40) 05/28/19 10:57 ALT 25 units/L (7-56) 05/28/19 10:57 Alkaline Phosphatase 170 units/L (35-129) H 05/28/19 10:57 Ammonia 28.0 umol/L (25-60) 02/21/19 20:04 Total Creatine Kinase 64 units/L (55-170) 02/22/19 03:42 CK-MB (CK-2) 3.7 ng/mL (0.0-4.0) 02/22/19 03:42 CK-MB (CK-2) Rel Index 5.7 (0-4) H 02/22/19 03:42 Troponin T 0.193 ng/mL (0.00-0.029) H* 02/22/19 03:42 Total Protein 7.5 g/dL (6.3-8.2) 05/28/19 10:57 Albumin 2.2 g/dL (3.9-5) L 05/28/19 10:57 Albumin/Globulin Ratio 0.4 % 05/28/19 10:57 Triglycerides 51 mg/dL (2-149) 02/21/19 18:30 Cholesterol 82 mg/dL (50-199) 02/21/19 18:30 LDL Cholesterol Direct 36 mg/dL (50-130) L 02/21/19 18:30 HDL Cholesterol 40 mg/dL (40-59) 02/21/19 18:30 Cholesterol/HDL Ratio 2.05 % 02/21/19 18:30 TSH 2.760 mlU/mL (0.270-4.200) 02/21/19 20:04 PTH Intact 199.5 pg/mL (15-65) H 05/28/19 10:57 Salicylates < 0.3 mg/dL (2.8-20.0) L 02/21/19 20:04 Acetaminophen < 5.0 ug/mL (10.0-30.0) L 02/21/19 20:04 Hepatitis A IgM Ab Non-reactive (NonReactive) 04/30/19 14:11 Hep Bs Antigen Non-reactive (Negative) 04/30/19 14:11 Hep B Core IgM Ab Non-reactive (NonReactive) 04/30/19 14:11 Hepatitis C Antibody Non-reactive (NonReactive) 04/30/19 14:11 Blood Type O POSITIVE 05/04/19 12:55 Antibody Screen Negative 05/04/19 12:55 Crossmatch See Detail 05/04/19 12:55 Active Medications - Current Medications Current Medications: Generic Name Dose Route Start Last Admin Trade Name Freq PRN Reason Stop Dose Admin Acetaminophen 650 mg 05/18/19 23:33 05/28/19 16:57 Tylenol PO 650 mg Q6HR PRN Administration PAIN Albuterol/Ipratropium 1 ampul 02/24/19 20:00 05/28/19 14:04 Duoneb *Not For Prn Use* IH 1 ampul TIDRT SANCHEZ Administration Lipase/Protease/Amylase 1 each 04/10/19 15:16 Pancrejewel Barrientos 10,500 Unit FEEDTUBE PRN PRN For Clogged Feeding Tube Epoetin Solitario 20,000 unit 03/24/19 11:17 05/27/19 12:19 Procrit IV 20,000 unit UMA PRN Administration hemodialysis Famotidine 20 mg 02/23/19 10:00 05/28/19 12:19 Pepcid PO 20 mg DAILY SANCHEZ Administration Sodium Chloride 100 mls @ 999 mls/hr 05/13/19 12:45 Nacl 0.9% IV UMA PRN Hypotension Insulin Human Regular 0 units 02/26/19 12:00 05/28/19 17:32 Humulin R SUB-Q 2 units Q6HR SANCHEZ Administration Protocol Risperidone 1 mg 02/25/19 13:00 05/28/19 12:19 Risperdal PO 1 mg DAILY SANCHEZ Administration Sertraline HCl 100 mg 02/25/19 13:00 05/28/19 12:19 Zoloft PO 100 mg DAILY SANCHEZ Administration Simple Syrup 15 ml 04/10/19 15:16 Simple Syrup FEEDTUBE PRN PRN Hypoglycemia Simple Syrup 30 ml 04/10/19 15:16 Simple Syrup FEEDTUBE PRN PRN Hypoglycemia Sodium Bicarbonate 325 mg 04/10/19 15:16 Sodium Bicarbonate FEEDTUBE PRN PRN For Clogged Feeding Tube Sodium Hypochlorite 1 applic 04/01/19 13:00 05/28/19 12:18 Dakin's Half Strength TP 1 applicatio BID SANCHEZ Administration Nutrition/Malnutrition Assess - Dietary Evaluation Nutrition/Malnutrition Findings: Nutrition Notes Start: 02/22/19 12:51 Freq: Status: Active Protocol: Document 05/28/19 09:48 CT (Rec: 05/28/19 10:01 CT [id number]) Co-Sign 05/28/19 09:48 Nutrition Notes Initial or Follow up Reassessment Current Diagnosis CKD (stage V CKD),Diabetes, Hypertension,Heart Failure Other Pertinent Diagnosis Sacral PU, ESRD on HD (T/Thurs /Sat), Schizophrenia,Blind in L eye,S/P trach Current Diet Nepro at 50 ml/hr w/Abhilash BID Labs/Tests POC Glu 125 Pertinent Medications Humulin Height 5 ft 10 in Weight 68 kg [place] Body Weight (kg) 75.45 BMI 21.4 Weight change and time frame Wt loss noted. Likely d/t fluid change. Subjective/Other Information Observed Nepro infusing at goal rate. Per RN pt has been recieving Abhilash BID and has not recieved it today. Pt has not had any GI complications. Percent of energy/protein needs met: 100%/100% Burn Absent Trauma Absent Minimum of two criteria No physical signs of malnutrition #2 Nutrition Diagnosis Increased nutrient needs ( specify in comment below) Diagnosis Progress(for reassessment Continues documentation) #1 Nutrition Diagnosis Inadequate oral intake Diagnosis Progress(for reassessment Continues documentation) Is patient on ventilator? No Is Patient Ambulatory and/or Out of Bed No REE-(Henderson-St. Jeor-confined to bed) 1776.828 Kcal/Kg value to use for calculation 35 Approximate Energy Requirements Using 2380 kcal/Kg Calculation Used for Recommendations Kcal/kg Additional Notes Pro needs 82-102 g/day (1.2-1. 5 g/kg) Fluid per MD Nutrition Intervention Change Diet Order: Continue TF Nutrition Support: Nepro with Carbsteady 1.8 at 50 ml/hr Flush 200 ml q4hr Kcal 2,160 Protein (gm) 97 Fluid (mL) 872 Add Supplement/Snack (indicate name/kcal Abhilash BID /protein ) Provides kCal: 190 Provides Protein (gm) 5 Goal #1 Continue to meet at least 75% of calorie and protein needs via TF Anticipated Discharge Needs: TF Follow-Up By: 06/02/19 Additional Comments Follow up for TF tolerance, receiving Abhilash
[2019-05-29] MEDS: INSULIN REGULAR, HUMAN 100 UNITS/1 ML SUB-Q SCH ×4 (00:26→18:38)
[2019-05-29] MEDS: IPRATROPIUM/ALBUTEROL SULFATE 3 ML AMPUL.NEB IH SCH ×3 (08:02→20:29)
--- NOTE | 2019-05-29 08:52 | Progress Note ---
Assessment and Plan Assessment: * End stage renal disease (outpatient TTS schedule) * Acute hypoxic respiratory failure s/p trach * s/p KEON pneumonia --Sputum cx: MDR Acinetobacter * Cardiomyopathy - EF 35-40% * Atrial fibrillation * History of CVA * Anemia secondary to ESRD * Secondary hyperparathyroidism * Decubitis ulcer Plan * Continue HD MWF via [facility] AVG * ID following - recommendations reviewed * Nutrition per primary team * Dose medications for renal function * Epogen 20k TIW; obtain iron stores at next dialysis treatment * Overall prognosis remains poor; family declines hospice; will continue to follow for ESRD needs while inpatient Subjective Date of service: 05/29/19 Principal diagnosis: Respiratory failure, acute on chronic systolic HF, ESRD Interval history: No acute events overnight. Objective - Vital Signs Vital signs: Vital Signs - 12hr 05/28/19 05/28/19 05/29/19 22:00 23:53 06:32 Temperature 99.3 F 98.2 F Pulse Rate 69 132 H Pulse Rate [ 69 Apical] Respiratory 18 20 Rate Blood Pressure 100/48 Blood Pressure 94/42 [Right] O2 Sat by Pulse 100 97 Oximetry - General Appearance General appearance: chronically ill, frail EENT: ATNC Neck: other (trach) Respiratory: Present: Decreased Breath Sounds Cardiology: regular, S1S2 Gastrointestinal: normal, no tenderness, no distended, other (ostomy,PEG) Musculoskeletal: other (no edema) Psychiatric: cooperative - Lab 05/28/19 10:57 05/28/19 10:57 Most recent lab results ABG pH 7.424 pH Units (7.350-7.450) 03/19/19 04:23 ABG pCO2 48.0 mm Hg 03/19/19 04:23 ABG pO2 78.3 mm Hg (80.0-90.0) L 03/19/19 04:23 ABG HCO3 30.7 mmol/L (20.0-26.0) H 03/19/19 04:23 ABG O2 Saturation 97.0 % (95.0-99.0) 03/19/19 04:23 Calcium 10.2 mg/dL (8.4-10.2) 05/28/19 10:57 Phosphorus 2.60 mg/dL (2.5-4.5) 05/28/19 10:57 Magnesium 2.70 mg/dL (1.7-2.3) H 03/30/19 10:13 Medications & Allergies - Medications Allergies/Adverse Reactions: Allergies haloperidol [From Haldol] Adverse Reaction (Verified 03/13/18 12:10) Unknown haloperidol lactate [From Haldol] Adverse Reaction (Verified 03/13/18 12:10) Unknown Home Medications: Home Medications Medication Instructions Recorded Confirmed Last Taken Type risperiDONE [RisperDAL] 1 mg PO QAM 03/13/18 02/21/19 Unknown History Sertraline [Zoloft] 100 mg PO QDAY 08/26/18 02/21/19 Unknown History Polyethylene Glycol 3350 [Miralax 17 gm PO QDAY #30 packet 11/05/18 02/21/19 Unknown Rx 3350] Aspirin EC [Halfprin EC] 81 mg PO DAILY #30 11/19/18 02/21/19 Unknown Rx Docusate Sodium [Colace CAP] 100 mg PO BID #60 11/19/18 02/21/19 Unknown Rx Folic Acid [Folvite] 1 mg PO DAILY #30 tab 11/19/18 02/21/19 Unknown Rx Famotidine [Pepcid] 20 mg PO DAILY tablet 12/08/18 02/21/19 Unknown Rx Gabapentin 100 mg PO QHS capsule 12/08/18 02/21/19 Unknown Rx Metoprolol [Lopressor TAB] 50 mg PO BID 30 Days tablet 12/08/18 02/21/19 Unknown Rx Sevelamer Carbonate [Renvela] 800 mg PO TIDWM tablet 12/08/18 02/21/19 Unknown Rx hydrALAZINE [Apresoline TAB] 100 mg PO Q8HR #120 tablet 12/08/18 02/21/19 Unknown Rx Acetaminophen [Acetaminophen TAB] 650 mg PO Q12H PRN 12/15/18 02/21/19 Unknown History Glucagon,Human Recombinant 1 mg IJ Q15MIN PRN 12/15/18 02/21/19 Unknown History [Glucagon Emergency Kit] Insulin Aspart (Nf) [NovoLOG 100 See Protocol SQ QWEEK 12/15/18 02/21/19 Unknown History UNITS/ML VIAL] Active Medications: Generic Name Dose Route Start Last Admin Trade Name Freq PRN Reason Stop Dose Admin Acetaminophen 650 mg 05/18/19 23:33 05/28/19 16:57 Tylenol PO 650 mg Q6HR PRN Administration PAIN Albuterol/Ipratropium 1 ampul 02/24/19 20:00 05/29/19 08:02 Duoneb *Not For Prn Use* IH 1 ampul TIDRT SANCHEZ Administration Lipase/Protease/Amylase 1 each 04/10/19 15:16 Pancreazkaren Barrientos 10,500 Unit FEEDTUBE PRN PRN For Clogged Feeding Tube Epoetin Solitario 20,000 unit 03/24/19 11:17 05/27/19 12:19 Procrit IV 20,000 unit UMA PRN Administration hemodialysis Famotidine 20 mg 02/23/19 10:00 05/28/19 12:19 Pepcid PO 20 mg DAILY SANCHEZ Administration Sodium Chloride 100 mls @ 999 mls/hr 05/13/19 12:45 Nacl 0.9% IV UMA PRN Hypotension Insulin Human Regular 0 units 02/26/19 12:00 05/29/19 06:39 Humulin R SUB-Q 1 units Q6HR SANCHEZ Administration Protocol Risperidone 1 mg 02/25/19 13:00 05/28/19 12:19 Risperdal PO 1 mg DAILY SANCHEZ Administration Sertraline HCl 100 mg 02/25/19 13:00 05/28/19 12:19 Zoloft PO 100 mg DAILY SANCHEZ Administration Simple Syrup 15 ml 04/10/19 15:16 Simple Syrup FEEDTUBE PRN PRN Hypoglycemia Simple Syrup 30 ml 04/10/19 15:16 Simple Syrup FEEDTUBE PRN PRN Hypoglycemia Sodium Bicarbonate 325 mg 04/10/19 15:16 Sodium Bicarbonate FEEDTUBE PRN PRN For Clogged Feeding Tube Sodium Hypochlorite 1 applic 04/01/19 13:00 05/28/19 22:44 Dakin's Half Strength TP 1 applicatio BID SANCHEZ Administration
--- NOTE | 2019-05-29 09:33 | Progress Note ---
Assessment and Plan Cultures: Blood cultures 12/26/2018 no growth today. Blood cultures 01/01/2019 no growth today. Wound cultures 01/02/2019 ESBL Kleb, MDR Ecoli and E raffinosus resistant to penicillin. 03/14 Sputum Cx: MDR Acinetobacter 03/14 BCx: NGTD 03/17 Sputum CX: MDR Acinetobacter 05/19 sputum Cx - unfit for culture Assessment: 63 y/o male with history of ESRD on HD, HTN, CAD S/P CABG, CVA, DM, Atrial Fib, Anemia, Hyperparathyroidism, Hypocalcemia, schizophrenia; well known to ID service from previous admissions, most recently on 12/26/2018 due to sepsis from unstagable necrotic sacral decubitus s/p OR on 01/01/2019 for open excisional debridement of necrotic sacral wound with ESBL Kleb, MDR Ecoli, treated with Meropenem 1 gm IV every 24 hours via tunneled catheter and Vancomycin 1 gm post HD Saturday, and Saturday for 6 weeks ending 02-16-19; readmitted: 1. Sepsis: again with fevers and leukocytosis, tachycardia. Would assume repeat tracheitis. Obtain sputum cultures. Given his history of MDR I would avoid empiric antibiotics as we have so few options left. Will give targeted antibiotics pending sputum results. Strongly need to consider hospice. 2. Hypoxic respiratory failure - per pulmonary. off vent. Capping trials 3. DM2 4. Left 5th finger pressure ulcer: not infected 5. Sacral stage IV ulcer s/p extensive treatment - NOT infected currently; treated with Meropenem 1 gm IV every 24 hours via tunneled catheter and Vancomycin 1 gm post HD Saturday, and Saturday for 6 weeks ending 02-16-19 6. ESRD on HD Recommendations: - sputum cultures with >10 epithelial cells. had a low grade temperature. Given his co-morbidities this may continue to recur. If persistent fevers please obtain repeat sputum cultures - Would not start antibiotics in the absence of culture data. Fevers have not recurred. - contact precautions - consider hospice, he will continue to develop worsening resistance and we will exhaust all therapeutic options for Acinetobacter very quicky. Will sign off, please call with questions. Sherman Shirley MD [facility] ([facility] M: [phone] O: [phone] F: [phone] Subjective Date of service: 05/29/19 Principal diagnosis: Respiratory failure, acute on chronic systolic HF, ESRD Interval history: No acute change at present. Objective - Exam Narrative Exam: Constitutional: Alert, cooperative. No acute distress Neck: Supple, no meningeal signs. Trach in place. Oral: dentition fair, no thrush Cardiovascular: S1, S2 normal. Respiratory: Good air entry, clear to auscultation bilaterally GI: Soft, non-tender; bowel sounds normal. No peritoneal signs. Musculoskeletal: No pedal edema, no cyanosis. Skin: No rash or abscess Neurological: Awake, trached. No gross abnormality - Constitutional Vitals: Vital Signs Temp Pulse Resp BP Pulse Ox 98.2 F 110 H 18 100/48 98 05/29/19 06:32 05/29/19 09:04 05/29/19 09:04 05/29/19 06:32 05/29/19 09:06 Temperature -Last 24 Hours Temperature 98.2 F Temperature 99.3 F Temperature 100.1 F Temperature 100.2 F - Labs CBC & Chem 7: 05/28/19 10:57 05/28/19 10:57 Labs: Abnormal lab results 05/28/19 05/28/19 05/28/19 Range/Units 10:57 10:57 10:57 WBC 11.4 H (4.5-11.0) K/mm3 RBC 3.05 L (3.65-5.03) M/mm3 Hgb 7.9 L (11.8-15.2) gm/dl Hct 24.9 L (35.5-45.6) % MCV 82 L (84-94) fl MCH 26 L (28-32) pg RDW 21.6 H (13.2-15.2) % Lymph % (Auto) 7.5 L (13.4-35.0) % [place] % (Auto) 7.8 H (0.0-7.3) % Lymph # 0.9 L (1.2-5.4) K/mm3 [place] # 0.9 H (0.0-0.8) K/mm3 Eos # 0.5 H (0.0-0.4) K/mm3 Seg Neutrophils % 79.5 H (40.0-70.0) % Seg Neutrophils # 9.1 H (1.8-7.7) K/mm3 Chloride 94.0 L (98-107) mmol/L BUN 53 H (9-20) mg/dL Creatinine 2.9 H (0.8-1.5) mg/dL Glucose 147 H (75-100) mg/dL POC Glucose (70-105) Alkaline Phosphatase 170 H (35-129) units/L Albumin 2.2 L (3.9-5) g/dL PTH Intact 199.5 H (15-65) pg/mL 05/28/19 05/28/19 05/28/19 Range/Units 12:02 16:37 23:40 WBC (4.5-11.0) K/mm3 RBC (3.65-5.03) M/mm3 Hgb (11.8-15.2) gm/dl Hct (35.5-45.6) % MCV (84-94) fl MCH (28-32) pg RDW (13.2-15.2) % Lymph % (Auto) (13.4-35.0) % [place] % (Auto) (0.0-7.3) % Lymph # (1.2-5.4) K/mm3 [place] # (0.0-0.8) K/mm3 Eos # (0.0-0.4) K/mm3 Seg Neutrophils % (40.0-70.0) % Seg Neutrophils # (1.8-7.7) K/mm3 Chloride (98-107) mmol/L BUN (9-20) mg/dL Creatinine (0.8-1.5) mg/dL Glucose (75-100) mg/dL POC Glucose 181 H 217 H 152 H (70-105) Alkaline Phosphatase (35-129) units/L Albumin (3.9-5) g/dL PTH Intact (15-65) pg/mL 05/29/19 Range/Units 06:38 WBC (4.5-11.0) K/mm3 RBC (3.65-5.03) M/mm3 Hgb (11.8-15.2) gm/dl Hct (35.5-45.6) % MCV (84-94) fl MCH (28-32) pg RDW (13.2-15.2) % Lymph % (Auto) (13.4-35.0) % [place] % (Auto) (0.0-7.3) % Lymph # (1.2-5.4) K/mm3 [place] # (0.0-0.8) K/mm3 Eos # (0.0-0.4) K/mm3 Seg Neutrophils % (40.0-70.0) % Seg Neutrophils # (1.8-7.7) K/mm3 Chloride (98-107) mmol/L BUN (9-20) mg/dL Creatinine (0.8-1.5) mg/dL Glucose (75-100) mg/dL POC Glucose 194 H (70-105) Alkaline Phosphatase (35-129) units/L Albumin (3.9-5) g/dL PTH Intact (15-65) pg/mL
[2019-05-29] MEDS: SERTRALINE 100 MG TAB PO SCH (12:53)
[2019-05-29] MEDS: SODIUM HYPOCHLORITE, DAKIN'S 1/2 STRENGTH (0.25%) 473 ML TOPICAL SOLN TP SCH ×2 (12:53→23:26)
[2019-05-29] MEDS: risperiDONE 1 MG TAB PO SCH (12:54)
[2019-05-29] MEDS: FAMOTIDINE 20 MG TAB PO SCH (12:54)
--- NOTE | 2019-05-29 13:25 | Progress Note ---
Assessment and Plan Assessment and plan: Patient is a 63-year-old -[place] man from [facility] with a plethora of co-morbidities including blindness, CVA, CHF, PPM/ICD, loop recorder since 2012 that is MRI compatible, IDDM type 2, sepsis left foot ulcer, afib, ESRD with complications on HD TTS, hypertension, AOCD and GERD who presented to the ED with hypotensive after intubation in the emergency room. Still intubated, diagnosed with fluid overload, pleural effusion. Patient has had recurrent admission in the hospital for similar reason and was recently discharged from the hospital following treatment of Severe Sepsis due to Necrotizing Unstagable sacral decubitus ulcer with ostemomylitis, expected to complete abx on discharg e till 02/16/19. Trach and peg done HR control improved with change in BB. Acute respiratory failure on mechanical ventilator >96 hrs Trach placed on 03/03/19 Pulm consult appreciated weaning trial VAP BUNDLE ASPIRATION BUNDLE Continue T-piece Finished therapy for Acinetobacter Acute pulmonary edema, fluid overload on CXR repeat xray intermittently Dialysis Necrotizing Unstagable sacral decubitus ulcer with ostemomyelitis Wound care, Dilated CMP Cardiomyiopathy EF 35-40% Continue diuresis PPM/ICD Acute encephalopathy, probably metabolic or toxic Continues on Mechanical ventilator. ESRD on hemodialysis nephrology following Vascular eval. done re: LUE AV graft, see note Bilateral pleural effusions Anticipate improvement with Permanent atrial fibrillation and flutter Not on anticoagulation because of anemia thrombocytopenia Change noted to BB agent to IV. Diabetes mellitus type 2 Fingerstick Q4h NSTEMI type 2 Cardiology following Schizophrenia continue home meds Legally blind supportive care hypertension Monitor BP Hypokalemia resolved Pulmonary hypertension by history Dysphagia s/p PEG tube Severe malnutrition/hypoalbuminemia with FTT: 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, tank refinisher following PEG placed on 01/02/19 Decubitus ulcer s/p colostomy wound care consult History of sacral osteomyelitis and LE ulcers Completed Antibiotics Place on contact isolation for ESBL Klebsiella pneumonia on wound culture 01/02/19 h/o Peripheral neuropathy: Continue gabapentin Anemia of chronic disease -s/p total of 8 units PRBC, follow cbc- no occult GI bleed noted. -Pt is s/p x1 DDVAP RUL atelectasis, nebs as needed DVT prophylaxis Lovenox DNR poor prognosis Disposition: Awaiting on SNF HD setup I spoke with his nephrew Jennifer Mims, Director of our Lab Plan is patient to go [facility] with contract in place for him to come here for Hemodialysis History Interval history: Patient was seen and examined. Follow-up on current diagnosis. No overnight events reported to me. Patient is mainly nonverbal. Imaging, nursing note, chart, labs and old chart reviewed. Hospitalist Physical - Physical exam Narrative exam: Gen: severely disable, nad, awake alert x 1 HEENT: NCAT, EOMI, PERRL, OP Clear Neck: supple, trach CVS/Heart: irreg irregular, normal S1S2, pulses present bilaterally Chest/Lungs: diminished bs ymmetrical chest expansion, good air entry bilaterally GI/Abdomen:peg, colostomy present, good bowel sounds, no guarding or rebound /Bladder: no suprapubic tenderness, no CVA or paraspinal tenderness Extermity/Skin: no c/c/e, no obvious rash MSK: no FROM x 4 Neuro: CN 2-12 grossly intact except vision, no new focal deficits Psych: calm - Constitutional Vitals: Temp Pulse Resp BP Pulse Ox 98.2 F 110 H 18 100/48 98 05/29/19 06:32 05/29/19 09:04 05/29/19 09:04 05/29/19 06:32 05/29/19 09:06 General appearance: Present: no acute distress, other (T peace). Absent: well- nourished Results - Labs CBC & Chem 7: 05/28/19 10:57 05/28/19 10:57 Labs: Laboratory Last Values WBC 11.4 K/mm3 (4.5-11.0) H 05/28/19 10:57 RBC 3.05 M/mm3 (3.65-5.03) L 05/28/19 10:57 Hgb 7.9 gm/dl (11.8-15.2) L 05/28/19 10:57 Hct 24.9 % (35.5-45.6) L 05/28/19 10:57 MCV 82 fl (84-94) L 05/28/19 10:57 MCH 26 pg (28-32) L 05/28/19 10:57 MCHC 32 % (32-34) 05/28/19 10:57 RDW 21.6 % (13.2-15.2) H 05/28/19 10:57 Plt Count 427 K/mm3 (140-440) 05/28/19 10:57 Lymph % (Auto) 7.5 % (13.4-35.0) L 05/28/19 10:57 [place] % (Auto) 7.8 % (0.0-7.3) H 05/28/19 10:57 Eos % (Auto) 4.2 % (0.0-4.3) 05/28/19 10:57 Baso % (Auto) 1.0 % (0.0-1.8) 05/28/19 10:57 Lymph # 0.9 K/mm3 (1.2-5.4) L 05/28/19 10:57 [place] # 0.9 K/mm3 (0.0-0.8) H 05/28/19 10:57 Eos # 0.5 K/mm3 (0.0-0.4) H 05/28/19 10:57 Baso # 0.1 K/mm3 (0.0-0.1) 05/28/19 10:57 Add Manual Diff Complete 03/21/19 06:30 Total Counted 100 03/21/19 06:30 Seg Neutrophils % 79.5 % (40.0-70.0) H 05/28/19 10:57 Seg Neuts % (Manual) 81.0 % (40.0-70.0) H 03/21/19 06:30 Band Neutrophils % 0 % 03/21/19 06:30 Lymphocytes % (Manual) 8.0 % (13.4-35.0) L 03/21/19 06:30 Reactive Lymphs % (Man) 0 % 03/21/19 06:30 Monocytes % (Manual) 1.0 % (0.0-7.3) 03/21/19 06:30 Eosinophils % (Manual) 8.0 % (0.0-4.3) H 03/21/19 06:30 Basophils % (Manual) 1.0 % (0.0-1.8) 03/21/19 06:30 Metamyelocytes % 1.0 % 03/21/19 06:30 Myelocytes % 0 % 03/21/19 06:30 Promyelocytes % 0 % 03/21/19 06:30 Blast Cells % 0 % 03/21/19 06:30 Nucleated RBC % Not Reportable 03/21/19 06:30 Seg Neutrophils # 9.1 K/mm3 (1.8-7.7) H 05/28/19 10:57 Seg Neutrophils # Man 6.7 K/mm3 (1.8-7.7) 03/21/19 06:30 Band Neutrophils # 0.0 K/mm3 03/21/19 06:30 Lymphocytes # (Manual) 0.7 K/mm3 (1.2-5.4) L 03/21/19 06:30 Abs React Lymphs (Man) 0.0 K/mm3 03/21/19 06:30 Monocytes # (Manual) 0.1 K/mm3 (0.0-0.8) 03/21/19 06:30 Eosinophils # (Manual) 0.7 K/mm3 (0.0-0.4) H 03/21/19 06:30 Basophils # (Manual) 0.1 K/mm3 (0.0-0.1) 03/21/19 06:30 Metamyelocytes # 0.1 K/mm3 03/21/19 06:30 Myelocytes # 0.0 K/mm3 03/21/19 06:30 Promyelocytes # 0.0 K/mm3 03/21/19 06:30 Blast Cells # 0.0 K/mm3 03/21/19 06:30 WBC Morphology Not Reportable 03/21/19 06:30 Hypersegmented Neuts Not Reportable 03/21/19 06:30 Hyposegmented Neuts Not Reportable 03/21/19 06:30 Hypogranular Neuts Not Reportable 03/21/19 06:30 Smudge Cells Not Reportable 03/21/19 06:30 Toxic Granulation Not Reportable 03/21/19 06:30 Toxic Vacuolation Not Reportable 03/21/19 06:30 Dohle Bodies Not Reportable 03/21/19 06:30 Pelger-Huet Anomaly Not Reportable 03/21/19 06:30 Tramaine Rods Not Reportable 03/21/19 06:30 Platelet Estimate Consistent w auto 03/21/19 06:30 Clumped Platelets Not Reportable 03/21/19 06:30 Plt Clumps, EDTA Not Reportable 03/21/19 06:30 Large Platelets Not Reportable 03/21/19 06:30 Giant Platelets Not Reportable 03/21/19 06:30 Platelet Satelliting Not Reportable 03/21/19 06:30 Plt Morphology Comment Not Reportable 03/21/19 06:30 RBC Morphology Not Reportable 03/21/19 06:30 Dimorphic RBCs Not Reportable 03/21/19 06:30 Polychromasia Not Reportable 03/21/19 06:30 Hypochromasia Few 03/21/19 06:30 Poikilocytosis Few 03/21/19 06:30 Anisocytosis Few 03/21/19 06:30 Microcytosis Not Reportable 03/21/19 06:30 Macrocytosis Not Reportable 03/21/19 06:30 Spherocytes Not Reportable 03/21/19 06:30 Pappenheimer Bodies Not Reportable 03/21/19 06:30 Sickle Cells Not Reportable 03/21/19 06:30 Target Cells 1+ 03/21/19 06:30 Tear Drop Cells Not Reportable 03/21/19 06:30 Ovalocytes Few 03/21/19 06:30 Helmet Cells Not Reportable 03/21/19 06:30 [place] Bodies Not Reportable 03/21/19 06:30 [place] Rings Not Reportable 03/21/19 06:30 [place] Cells Not Reportable 03/21/19 06:30 Bite Cells Not Reportable 03/21/19 06:30 Crenated Cell Not Reportable 03/21/19 06:30 Elliptocytes Not Reportable 03/21/19 06:30 Acanthocytes (Spur) Not Reportable 03/21/19 06:30 Rouleaux Not Reportable 03/21/19 06:30 Hemoglobin C Crystals Not Reportable 03/21/19 06:30 Schistocytes Not Reportable 03/21/19 06:30 Malaria parasites Not Reportable 03/21/19 06:30 Jose Juan Bodies Not Reportable 03/21/19 06:30 Hem Pathologist Commnt No 03/21/19 06:30 PT 16.3 Sec. (12.2-14.9) H 03/01/19 09:39 INR 1.35 (0.87-1.13) H 03/01/19 09:39 APTT 33.7 Sec. (24.2-36.6) 02/21/19 18:30 D-Dimer 2987.82 ng/mlDDU (0-234) H 02/22/19 05:54 POC ABG pH 7.510 (7.35-7.45) H 03/18/19 06:38 ABG pH 7.424 pH Units (7.350-7.450) 03/19/19 04:23 POC ABG pCO2 38.9 (35-45) 03/18/19 06:38 ABG pCO2 48.0 mm Hg 03/19/19 04:23 POC ABG pO2 164 (80-105) H 03/18/19 06:38 ABG pO2 78.3 mm Hg (80.0-90.0) L 03/19/19 04:23 POC ABG HCO3 31.0 (22-26 mml/L) 03/18/19 06:38 ABG HCO3 30.7 mmol/L (20.0-26.0) H 03/19/19 04:23 POC ABG Total CO2 32 (23-27mmol/L) 03/18/19 06:38 POC ABG O2 Sat 100 03/18/19 06:38 ABG O2 Saturation 97.0 % (95.0-99.0) 03/19/19 04:23 ABG O2 Content 7.9 (0.0-44) 03/19/19 04:23 POC ABG Base Excess 8 ((-2) - (+3)mmol/L) 03/18/19 06:38 ABG Base Excess 5.8 mmol/L (-2.0-3.0) H 03/19/19 04:23 ABG Hemoglobin 5.8 gm/dl (14.0-18.0) L 03/19/19 04:23 ABG Carboxyhemoglobin 2.0 % (0.0-5.0) 03/19/19 04:23 ABG Methemoglobin 0.4 % (0.0-1.5) 03/19/19 04:23 Oxyhemoglobin 94.6 % (95.0-99.0) L 03/19/19 04:23 FiO2 35 % 03/19/19 04:23 Sodium 137 mmol/L (137-145) 05/28/19 10:57 Potassium 3.6 mmol/L (3.6-5.0) 05/28/19 10:57 Chloride 94.0 mmol/L (98-107) L 05/28/19 10:57 Carbon Dioxide 28 mmol/L (22-30) 05/28/19 10:57 Anion Gap 19 mmol/L 05/28/19 10:57 BUN 53 mg/dL (9-20) H 05/28/19 10:57 Creatinine 2.9 mg/dL (0.8-1.5) H 05/28/19 10:57 Estimated GFR 27 ml/min 05/28/19 10:57 BUN/Creatinine Ratio 18 % 05/28/19 10:57 Glucose 147 mg/dL (75-100) H 05/28/19 10:57 POC Glucose 194 (70-105) H 05/29/19 06:38 Lactic Acid 1.00 mmol/L (0.7-2.0) 02/21/19 20:58 Calcium 10.2 mg/dL (8.4-10.2) 05/28/19 10:57 Phosphorus 2.60 mg/dL (2.5-4.5) 05/28/19 10:57 Magnesium 2.70 mg/dL (1.7-2.3) H 03/30/19 10:13 Total Bilirubin 0.30 mg/dL (0.1-1.2) 05/28/19 10:57 AST 25 units/L (5-40) 05/28/19 10:57 ALT 25 units/L (7-56) 05/28/19 10:57 Alkaline Phosphatase 170 units/L (35-129) H 05/28/19 10:57 Ammonia 28.0 umol/L (25-60) 02/21/19 20:04 Total Creatine Kinase 64 units/L (55-170) 02/22/19 03:42 CK-MB (CK-2) 3.7 ng/mL (0.0-4.0) 02/22/19 03:42 CK-MB (CK-2) Rel Index 5.7 (0-4) H 02/22/19 03:42 Troponin T 0.193 ng/mL (0.00-0.029) H* 02/22/19 03:42 Total Protein 7.5 g/dL (6.3-8.2) 05/28/19 10:57 Albumin 2.2 g/dL (3.9-5) L 05/28/19 10:57 Albumin/Globulin Ratio 0.4 % 05/28/19 10:57 Triglycerides 51 mg/dL (2-149) 02/21/19 18:30 Cholesterol 82 mg/dL (50-199) 02/21/19 18:30 LDL Cholesterol Direct 36 mg/dL (50-130) L 02/21/19 18:30 HDL Cholesterol 40 mg/dL (40-59) 02/21/19 18:30 Cholesterol/HDL Ratio 2.05 % 02/21/19 18:30 TSH 2.760 mlU/mL (0.270-4.200) 02/21/19 20:04 PTH Intact 199.5 pg/mL (15-65) H 05/28/19 10:57 Salicylates < 0.3 mg/dL (2.8-20.0) L 02/21/19 20:04 Acetaminophen < 5.0 ug/mL (10.0-30.0) L 02/21/19 20:04 Hepatitis A IgM Ab Non-reactive (NonReactive) 05/28/19 16:57 Hep Bs Antigen Non-reactive (Negative) 05/28/19 16:57 Hep B Core IgM Ab Non-reactive (NonReactive) 05/28/19 16:57 Hepatitis C Antibody Non-reactive (NonReactive) 05/28/19 16:57 Blood Type O POSITIVE 05/04/19 12:55 Antibody Screen Negative 05/04/19 12:55 Crossmatch See Detail 05/04/19 12:55 Active Medications - Current Medications Current Medications: Generic Name Dose Route Start Last Admin Trade Name Freq PRN Reason Stop Dose Admin Acetaminophen 650 mg 05/18/19 23:33 05/28/19 16:57 Tylenol PO 650 mg Q6HR PRN Administration PAIN Albuterol/Ipratropium 1 ampul 02/24/19 20:00 05/29/19 08:02 Duoneb *Not For Prn Use* IH 1 ampul TIDRT SANCHEZ Administration Lipase/Protease/Amylase 1 each 04/10/19 15:16 Pancrejewel Barrientos 10,500 Unit FEEDTUBE PRN PRN For Clogged Feeding Tube Epoetin Solitario 20,000 unit 03/24/19 11:17 05/27/19 12:19 Procrit IV 20,000 unit UMA PRN Administration hemodialysis Famotidine 20 mg 02/23/19 10:00 05/29/19 12:54 Pepcid PO 20 mg DAILY SANCHEZ Administration Sodium Chloride 100 mls @ 999 mls/hr 05/13/19 12:45 Nacl 0.9% IV UMA PRN Hypotension Insulin Human Regular 0 units 02/26/19 12:00 05/29/19 06:39 Humulin R SUB-Q 1 units Q6HR SANCHEZ Administration Protocol Risperidone 1 mg 02/25/19 13:00 05/29/19 12:54 Risperdal PO 1 mg DAILY SANCHEZ Administration Sertraline HCl 100 mg 02/25/19 13:00 05/29/19 12:53 Zoloft PO 100 mg DAILY SANCHEZ Administration Simple Syrup 15 ml 04/10/19 15:16 Simple Syrup FEEDTUBE PRN PRN Hypoglycemia Simple Syrup 30 ml 04/10/19 15:16 Simple Syrup FEEDTUBE PRN PRN Hypoglycemia Sodium Bicarbonate 325 mg 04/10/19 15:16 Sodium Bicarbonate FEEDTUBE PRN PRN For Clogged Feeding Tube Sodium Hypochlorite 1 applic 04/01/19 13:00 05/29/19 12:53 Dakin's Half Strength TP 1 applicatio BID SANCHEZ Administration Nutrition/Malnutrition Assess - Dietary Evaluation Nutrition/Malnutrition Findings: Nutrition Notes Start: 02/22/19 12:51 Freq: Status: Active Protocol: Document 05/28/19 09:48 CT (Rec: 05/28/19 10:01 CT [id number]) Co-Sign 05/28/19 09:48 KH Nutrition Notes Initial or Follow up Reassessment Current Diagnosis CKD (stage V CKD),Diabetes, Hypertension,Heart Failure Other Pertinent Diagnosis Sacral PU, ESRD on HD (T/Thurs /Sat), Schizophrenia,Blind in L eye,S/P trach Current Diet Nepro at 50 ml/hr w/Abhilash BID Labs/Tests POC Glu 125 Pertinent Medications Humulin Height 5 ft 10 in Weight 68 kg [place] Body Weight (kg) 75.45 BMI 21.4 Weight change and time frame Wt loss noted. Likely d/t fluid change. Subjective/Other Information Observed Nepro infusing at goal rate. Per RN pt has been recieving Abhilash BID and has not recieved it today. Pt has not had any GI complications. Percent of energy/protein needs met: 100%/100% Burn Absent Trauma Absent Minimum of two criteria No physical signs of malnutrition #2 Nutrition Diagnosis Increased nutrient needs ( specify in comment below) Diagnosis Progress(for reassessment Continues documentation) #1 Nutrition Diagnosis Inadequate oral intake Diagnosis Progress(for reassessment Continues documentation) Is patient on ventilator? No Is Patient Ambulatory and/or Out of Bed No REE-(Stigler-. Jeor-confined to bed) 1776.828 Kcal/Kg value to use for calculation 35 Approximate Energy Requirements Using 2380 kcal/Kg Calculation Used for Recommendations Kcal/kg Additional Notes Pro needs 82-102 g/day (1.2-1. 5 g/kg) Fluid per MD Nutrition Intervention Change Diet Order: Continue TF Nutrition Support: Nepro with Carbsteady 1.8 at 50 ml/hr Flush 200 ml q4hr Kcal 2,160 Protein (gm) 97 Fluid (mL) 872 Add Supplement/Snack (indicate name/kcal Abhilash BID /protein ) Provides kCal: 190 Provides Protein (gm) 5 Goal #1 Continue to meet at least 75% of calorie and protein needs via TF Anticipated Discharge Needs: TF Follow-Up By: 06/02/19 Additional Comments Follow up for TF tolerance, receiving Abhilash
[2019-05-29 13:32] LABS: % Iron Saturation 26.92 %
[2019-05-30] MEDS: INSULIN REGULAR, HUMAN 100 UNITS/1 ML SUB-Q SCH ×4 (00:11→17:23)
[2019-05-30] MEDS: IPRATROPIUM/ALBUTEROL SULFATE 3 ML AMPUL.NEB IH SCH ×2 (08:17→14:44)
[2019-05-30] MEDS: SODIUM HYPOCHLORITE, DAKIN'S 1/2 STRENGTH (0.25%) 473 ML TOPICAL SOLN TP SCH ×2 (09:49→21:48)
[2019-05-30] MEDS: SERTRALINE 100 MG TAB PO SCH (09:49)
[2019-05-30] MEDS: risperiDONE 1 MG TAB PO SCH (09:49)
[2019-05-30] MEDS: FAMOTIDINE 20 MG TAB PO SCH (09:49)
--- NOTE | 2019-05-30 14:07 | Progress Note ---
Assessment and Plan Assessment and plan: Patient is a 63-year-old -[place] man from [facility] with a plethora of co-morbidities including blindness, CVA, CHF, PPM/ICD, loop recorder since 2012 that is MRI compatible, IDDM type 2, sepsis left foot ulcer, afib, ESRD with complications on HD TTS, hypertension, AOCD and GERD who presented to the ED with hypotensive after intubation in the emergency room. Still intubated, diagnosed with fluid overload, pleural effusion. Patient has had recurrent admission in the hospital for similar reason and was recently discharged from the hospital following treatment of Severe Sepsis due to Necrotizing Unstagable sacral decubitus ulcer with ostemomylitis, expected to complete abx on discharg e till 02/16/19. Trach and peg done HR control improved with change in BB. Acute respiratory failure on mechanical ventilator >96 hrs Trach placed on 03/03/19 Pulm consult appreciated weaning trial VAP BUNDLE ASPIRATION BUNDLE Continue T-piece Finished therapy for Acinetobacter Acute pulmonary edema, fluid overload on CXR repeat xray intermittently Dialysis Necrotizing Unstagable sacral decubitus ulcer with ostemomyelitis Wound care, Dilated CMP Cardiomyiopathy EF 35-40% Continue diuresis PPM/ICD Acute encephalopathy, probably metabolic or toxic Continues on Mechanical ventilator. ESRD on hemodialysis nephrology following Vascular eval. done re: LUE AV graft, see note Bilateral pleural effusions Anticipate improvement with Permanent atrial fibrillation and flutter Not on anticoagulation because of anemia thrombocytopenia Change noted to BB agent to IV. 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 -Pt is s/p x1 DDVAP RUL atelectasis, nebs as needed DVT prophylaxis Lovenox DNR poor prognosis Disposition: Awaiting on SNF HD setup I spoke with his nephrew Jennifer Mims, Director of our Lab Plan is patient to go back to [facility] with contract in place for him to come here for Hemodialysis History Interval history: Patient was seen and examined. Follow-up on current diagnosis. No overnight events reported to me. Patient is mainly nonverbal. Imaging, nursing note, chart, labs and old chart reviewed. Hospitalist Physical - Physical exam Narrative exam: Gen: severely disable, nad, awake alert x 1 HEENT: NCAT, EOMI, PERRL, OP Clear Neck: supple, trach CVS/Heart: irreg irregular, normal S1S2, pulses present bilaterally Chest/Lungs: diminished bs ymmetrical chest expansion, good air entry bilaterally GI/Abdomen:peg, colostomy present, good bowel sounds, no guarding or rebound /Bladder: no suprapubic tenderness, no CVA or paraspinal tenderness Extermity/Skin: no c/c/e, no obvious rash MSK: no FROM x 4 Neuro: CN 2-12 grossly intact except vision, no new focal deficits Psych: calm - Constitutional Vitals: Temp Pulse Resp BP Pulse Ox 97.8 F 110 H 18 98/43 100 05/30/19 12:58 05/30/19 12:58 05/30/19 12:58 05/30/19 12:58 05/30/19 12:58 General appearance: Present: no acute distress, other (T peace). Absent: well- nourished Results - Labs CBC & Chem 7: 05/28/19 10:57 05/28/19 10:57 Labs: Laboratory Last Values WBC 11.4 K/mm3 (4.5-11.0) H 05/28/19 10:57 RBC 3.05 M/mm3 (3.65-5.03) L 05/28/19 10:57 Hgb 7.9 gm/dl (11.8-15.2) L 05/28/19 10:57 Hct 24.9 % (35.5-45.6) L 05/28/19 10:57 MCV 82 fl (84-94) L 05/28/19 10:57 MCH 26 pg (28-32) L 05/28/19 10:57 MCHC 32 % (32-34) 05/28/19 10:57 RDW 21.6 % (13.2-15.2) H 05/28/19 10:57 Plt Count 427 K/mm3 (140-440) 05/28/19 10:57 Lymph % (Auto) 7.5 % (13.4-35.0) L 05/28/19 10:57 Green % (Auto) 7.8 % (0.0-7.3) H 05/28/19 10:57 Eos % (Auto) 4.2 % (0.0-4.3) 05/28/19 10:57 Baso % (Auto) 1.0 % (0.0-1.8) 05/28/19 10:57 Lymph # 0.9 K/mm3 (1.2-5.4) L 05/28/19 10:57 Green # 0.9 K/mm3 (0.0-0.8) H 05/28/19 10:57 Eos # 0.5 K/mm3 (0.0-0.4) H 05/28/19 10:57 Baso # 0.1 K/mm3 (0.0-0.1) 05/28/19 10:57 Add Manual Diff Complete 03/21/19 06:30 Total Counted 100 03/21/19 06:30 Seg Neutrophils % 79.5 % (40.0-70.0) H 05/28/19 10:57 Seg Neuts % (Manual) 81.0 % (40.0-70.0) H 03/21/19 06:30 Band Neutrophils % 0 % 03/21/19 06:30 Lymphocytes % (Manual) 8.0 % (13.4-35.0) L 03/21/19 06:30 Reactive Lymphs % (Man) 0 % 03/21/19 06:30 Monocytes % (Manual) 1.0 % (0.0-7.3) 03/21/19 06:30 Eosinophils % (Manual) 8.0 % (0.0-4.3) H 03/21/19 06:30 Basophils % (Manual) 1.0 % (0.0-1.8) 03/21/19 06:30 Metamyelocytes % 1.0 % 03/21/19 06:30 Myelocytes % 0 % 03/21/19 06:30 Promyelocytes % 0 % 03/21/19 06:30 Blast Cells % 0 % 03/21/19 06:30 Nucleated RBC % Not Reportable 03/21/19 06:30 Seg Neutrophils # 9.1 K/mm3 (1.8-7.7) H 05/28/19 10:57 Seg Neutrophils # Man 6.7 K/mm3 (1.8-7.7) 03/21/19 06:30 Band Neutrophils # 0.0 K/mm3 03/21/19 06:30 Lymphocytes # (Manual) 0.7 K/mm3 (1.2-5.4) L 03/21/19 06:30 Abs React Lymphs (Man) 0.0 K/mm3 03/21/19 06:30 Monocytes # (Manual) 0.1 K/mm3 (0.0-0.8) 03/21/19 06:30 Eosinophils # (Manual) 0.7 K/mm3 (0.0-0.4) H 03/21/19 06:30 Basophils # (Manual) 0.1 K/mm3 (0.0-0.1) 03/21/19 06:30 Metamyelocytes # 0.1 K/mm3 03/21/19 06:30 Myelocytes # 0.0 K/mm3 03/21/19 06:30 Promyelocytes # 0.0 K/mm3 03/21/19 06:30 Blast Cells # 0.0 K/mm3 03/21/19 06:30 WBC Morphology Not Reportable 03/21/19 06:30 Hypersegmented Neuts Not Reportable 03/21/19 06:30 Hyposegmented Neuts Not Reportable 03/21/19 06:30 Hypogranular Neuts Not Reportable 03/21/19 06:30 Smudge Cells Not Reportable 03/21/19 06:30 Toxic Granulation Not Reportable 03/21/19 06:30 Toxic Vacuolation Not Reportable 03/21/19 06:30 Dohle Bodies Not Reportable 03/21/19 06:30 Pelger-Huet Anomaly Not Reportable 03/21/19 06:30 Tramaine Rods Not Reportable 03/21/19 06:30 Platelet Estimate Consistent w auto 03/21/19 06:30 Clumped Platelets Not Reportable 03/21/19 06:30 Plt Clumps, EDTA Not Reportable 03/21/19 06:30 Large Platelets Not Reportable 03/21/19 06:30 Giant Platelets Not Reportable 03/21/19 06:30 Platelet Satelliting Not Reportable 03/21/19 06:30 Plt Morphology Comment Not Reportable 03/21/19 06:30 RBC Morphology Not Reportable 03/21/19 06:30 Dimorphic RBCs Not Reportable 03/21/19 06:30 Polychromasia Not Reportable 03/21/19 06:30 Hypochromasia Few 03/21/19 06:30 Poikilocytosis Few 03/21/19 06:30 Anisocytosis Few 03/21/19 06:30 Microcytosis Not Reportable 03/21/19 06:30 Macrocytosis Not Reportable 03/21/19 06:30 Spherocytes Not Reportable 03/21/19 06:30 Pappenheimer Bodies Not Reportable 03/21/19 06:30 Sickle Cells Not Reportable 03/21/19 06:30 Target Cells 1+ 03/21/19 06:30 Tear Drop Cells Not Reportable 03/21/19 06:30 Ovalocytes Few 03/21/19 06:30 Helmet Cells Not Reportable 03/21/19 06:30 [place] Bodies Not Reportable 03/21/19 06:30 Mountain Rings Not Reportable 03/21/19 06:30 [place] Cells Not Reportable 03/21/19 06:30 Bite Cells Not Reportable 03/21/19 06:30 Crenated Cell Not Reportable 03/21/19 06:30 Elliptocytes Not Reportable 03/21/19 06:30 Acanthocytes (Spur) Not Reportable 03/21/19 06:30 Rouleaux Not Reportable 03/21/19 06:30 Hemoglobin C Crystals Not Reportable 03/21/19 06:30 Schistocytes Not Reportable 03/21/19 06:30 Malaria parasites Not Reportable 03/21/19 06:30 Jose Juan Bodies Not Reportable 03/21/19 06:30 Hem Pathologist Commnt No 03/21/19 06:30 PT 16.3 Sec. (12.2-14.9) H 03/01/19 09:39 INR 1.35 (0.87-1.13) H 03/01/19 09:39 APTT 33.7 Sec. (24.2-36.6) 02/21/19 18:30 D-Dimer 2987.82 ng/mlDDU (0-234) H 02/22/19 05:54 POC ABG pH 7.510 (7.35-7.45) H 03/18/19 06:38 ABG pH 7.424 pH Units (7.350-7.450) 03/19/19 04:23 POC ABG pCO2 38.9 (35-45) 03/18/19 06:38 ABG pCO2 48.0 mm Hg 03/19/19 04:23 POC ABG pO2 164 (80-105) H 03/18/19 06:38 ABG pO2 78.3 mm Hg (80.0-90.0) L 03/19/19 04:23 POC ABG HCO3 31.0 (22-26 mml/L) 03/18/19 06:38 ABG HCO3 30.7 mmol/L (20.0-26.0) H 03/19/19 04:23 POC ABG Total CO2 32 (23-27mmol/L) 03/18/19 06:38 POC ABG O2 Sat 100 03/18/19 06:38 ABG O2 Saturation 97.0 % (95.0-99.0) 03/19/19 04:23 ABG O2 Content 7.9 (0.0-44) 03/19/19 04:23 POC ABG Base Excess 8 ((-2) - (+3)mmol/L) 03/18/19 06:38 ABG Base Excess 5.8 mmol/L (-2.0-3.0) H 03/19/19 04:23 ABG Hemoglobin 5.8 gm/dl (14.0-18.0) L 03/19/19 04:23 ABG Carboxyhemoglobin 2.0 % (0.0-5.0) 03/19/19 04:23 ABG Methemoglobin 0.4 % (0.0-1.5) 03/19/19 04:23 Oxyhemoglobin 94.6 % (95.0-99.0) L 03/19/19 04:23 FiO2 35 % 03/19/19 04:23 Sodium 137 mmol/L (137-145) 05/28/19 10:57 Potassium 3.6 mmol/L (3.6-5.0) 05/28/19 10:57 Chloride 94.0 mmol/L (98-107) L 05/28/19 10:57 Carbon Dioxide 28 mmol/L (22-30) 05/28/19 10:57 Anion Gap 19 mmol/L 05/28/19 10:57 BUN 53 mg/dL (9-20) H 05/28/19 10:57 Creatinine 2.9 mg/dL (0.8-1.5) H 05/28/19 10:57 Estimated GFR 27 ml/min 05/28/19 10:57 BUN/Creatinine Ratio 18 % 05/28/19 10:57 Glucose 147 mg/dL (75-100) H 05/28/19 10:57 POC Glucose 170 (70-105) H 05/30/19 11:56 Lactic Acid 1.00 mmol/L (0.7-2.0) 02/21/19 20:58 Calcium 10.2 mg/dL (8.4-10.2) 05/28/19 10:57 Phosphorus 2.60 mg/dL (2.5-4.5) 05/28/19 10:57 Magnesium 2.70 mg/dL (1.7-2.3) H 03/30/19 10:13 Iron 21 ug/dL (49-181) L 05/29/19 12:49 TIBC 78 mcg/dL (250-450) L 05/29/19 12:49 % Saturation 26.92 % 05/29/19 12:49 Transferrin 61 mg/dl (180-329) L 05/29/19 12:49 Ferritin 4009.0 ng/mL (13.0-400.0) H 05/29/19 12:49 Total Bilirubin 0.30 mg/dL (0.1-1.2) 05/28/19 10:57 AST 25 units/L (5-40) 05/28/19 10:57 ALT 25 units/L (7-56) 05/28/19 10:57 Alkaline Phosphatase 170 units/L (35-129) H 05/28/19 10:57 Ammonia 28.0 umol/L (25-60) 02/21/19 20:04 Total Creatine Kinase 64 units/L (55-170) 02/22/19 03:42 CK-MB (CK-2) 3.7 ng/mL (0.0-4.0) 02/22/19 03:42 CK-MB (CK-2) Rel Index 5.7 (0-4) H 02/22/19 03:42 Troponin T 0.193 ng/mL (0.00-0.029) H* 02/22/19 03:42 Total Protein 7.5 g/dL (6.3-8.2) 05/28/19 10:57 Albumin 2.2 g/dL (3.9-5) L 05/28/19 10:57 Albumin/Globulin Ratio 0.4 % 05/28/19 10:57 Triglycerides 51 mg/dL (2-149) 02/21/19 18:30 Cholesterol 82 mg/dL (50-199) 02/21/19 18:30 LDL Cholesterol Direct 36 mg/dL (50-130) L 02/21/19 18:30 HDL Cholesterol 40 mg/dL (40-59) 02/21/19 18:30 Cholesterol/HDL Ratio 2.05 % 02/21/19 18:30 TSH 2.760 mlU/mL (0.270-4.200) 02/21/19 20:04 PTH Intact 199.5 pg/mL (15-65) H 05/28/19 10:57 Salicylates < 0.3 mg/dL (2.8-20.0) L 02/21/19 20:04 Acetaminophen < 5.0 ug/mL (10.0-30.0) L 02/21/19 20:04 Hepatitis A IgM Ab Non-reactive (NonReactive) 05/28/19 16:57 Hep Bs Antigen Non-reactive (Negative) 05/28/19 16:57 Hep B Core IgM Ab Non-reactive (NonReactive) 05/28/19 16:57 Hepatitis C Antibody Non-reactive (NonReactive) 05/28/19 16:57 Blood Type O POSITIVE 05/04/19 12:55 Antibody Screen Negative 05/04/19 12:55 Crossmatch See Detail 05/04/19 12:55 Active Medications - Current Medications Current Medications: Generic Name Dose Route Start Last Admin Trade Name Freq PRN Reason Stop Dose Admin Acetaminophen 650 mg 05/18/19 23:33 05/28/19 16:57 Tylenol PO 650 mg Q6HR PRN Administration PAIN Albuterol/Ipratropium 1 ampul 02/24/19 20:00 05/30/19 08:17 Duoneb *Not For Prn Use* IH 1 ampul TIDRT SANCHEZ Administration Lipase/Protease/Amylase 1 each 04/10/19 15:16 Pancreaze 10,500 Unit FEEDTUBE PRN PRN For Clogged Feeding Tube Epoetin Solitario 20,000 unit 03/24/19 11:17 05/27/19 12:19 Procrit IV 20,000 unit UMA PRN Administration hemodialysis Famotidine 20 mg 02/23/19 10:00 05/30/19 09:49 Pepcid PO 20 mg DAILY SANCHEZ Administration Sodium Chloride 100 mls @ 999 mls/hr 05/13/19 12:45 Nacl 0.9% IV UMA PRN Hypotension Insulin Human Regular 0 units 02/26/19 12:00 05/30/19 12:54 Humulin R SUB-Q 1 units Q6HR SANCHEZ Administration Protocol Risperidone 1 mg 02/25/19 13:00 05/30/19 09:49 Risperdal PO 1 mg DAILY SANCHEZ Administration Sertraline HCl 100 mg 02/25/19 13:00 05/30/19 09:49 Zoloft PO 100 mg DAILY SANCHEZ Administration Simple Syrup 15 ml 04/10/19 15:16 Simple Syrup FEEDTUBE PRN PRN Hypoglycemia Simple Syrup 30 ml 04/10/19 15:16 Simple Syrup FEEDTUBE PRN PRN Hypoglycemia Sodium Bicarbonate 325 mg 04/10/19 15:16 Sodium Bicarbonate FEEDTUBE PRN PRN For Clogged Feeding Tube Sodium Hypochlorite 1 applic 04/01/19 13:00 05/30/19 09:49 Dakin's Half Strength TP 1 applicatio BID SANCHEZ Administration Nutrition/Malnutrition Assess - Dietary Evaluation Nutrition/Malnutrition Findings: Nutrition Notes Start: 02/22/19 12:51 Freq: Status: Active Protocol: Document 05/28/19 09:48 CT (Rec: 05/28/19 10:01 CT [id number]) Co-Sign 05/28/19 09:48 KH Nutrition Notes Initial or Follow up Reassessment Current Diagnosis CKD (stage V CKD),Diabetes, Hypertension,Heart Failure Other Pertinent Diagnosis Sacral PU, ESRD on HD (T/Thurs /Sat), Schizophrenia,Blind in L eye,S/P trach Current Diet Nepro at 50 ml/hr w/Abhilash BID Labs/Tests POC Glu 125 Pertinent Medications Humulin Height 5 ft 10 in Weight 68 kg [place] Body Weight (kg) 75.45 BMI 21.4 Weight change and time frame Wt loss noted. Likely d/t fluid change. Subjective/Other Information Observed Nepro infusing at goal rate. Per RN pt has been recieving Abhilash BID and has not recieved it today. Pt has not had any GI complications. Percent of energy/protein needs met: 100%/100% Burn Absent Trauma Absent Minimum of two criteria No physical signs of malnutrition #2 Nutrition Diagnosis Increased nutrient needs ( specify in comment below) Diagnosis Progress(for reassessment Continues documentation) #1 Nutrition Diagnosis Inadequate oral intake Diagnosis Progress(for reassessment Continues documentation) Is patient on ventilator? No Is Patient Ambulatory and/or Out of Bed No REE-(Pe Ell-St. Jeor-confined to bed) 1776.828 Kcal/Kg value to use for calculation 35 Approximate Energy Requirements Using 2380 kcal/Kg Calculation Used for Recommendations Kcal/kg Additional Notes Pro needs 82-102 g/day (1.2-1. 5 g/kg) Fluid per MD Nutrition Intervention Change Diet Order: Continue TF Nutrition Support: Nepro with Carbsteady 1.8 at 50 ml/hr Flush 200 ml q4hr Kcal 2,160 Protein (gm) 97 Fluid (mL) 872 Add Supplement/Snack (indicate name/kcal Abhilash BID /protein ) Provides kCal: 190 Provides Protein (gm) 5 Goal #1 Continue to meet at least 75% of calorie and protein needs via TF Anticipated Discharge Needs: TF Follow-Up By: 06/02/19 Additional Comments Follow up for TF tolerance, receiving Abhilash
--- NOTE | 2019-05-30 15:30 | Progress Note ---
Assessment and Plan Assessment: * End stage renal disease (outpatient TTS schedule) * Acute hypoxic respiratory failure s/p trach * s/p KEON pneumonia --Sputum cx: MDR Acinetobacter * Cardiomyopathy - EF 35-40% * Atrial fibrillation * History of CVA * Anemia secondary to ESRD * Secondary hyperparathyroidism * Decubitis ulcer Plan * Continue HD MWF via WILFRED AVG * ID following - recommendations reviewed * Nutrition per primary team * Dose medications for renal function * Epogen 20k TIW; obtain iron stores at next dialysis treatment * Overall prognosis remains poor; family declines hospice; will continue to follow for ESRD needs while inpatient * Will see again on Saturday Subjective Date of service: 05/30/19 Principal diagnosis: Respiratory failure, acute on chronic systolic HF, ESRD Interval history: Patient w/ fever and elevated HR during dialysis yesterday. Blood cx obtained Objective - Vital Signs Vital signs: Vital Signs - 12hr 05/30/19 05/30/19 05/30/19 05:53 08:15 12:58 Temperature 98.8 F 97.8 F Pulse Rate 111 H 110 H Pulse Rate [ 101 H Anterior Bilateral Throughout] Respiratory 20 18 Rate Respiratory 16 Rate [Anterior Bilateral Throughout] Blood Pressure 88/46 98/43 O2 Sat by Pulse 98 100 Oximetry 05/30/19 14:45 Temperature Pulse Rate Pulse Rate [ 105 H Anterior Bilateral Throughout] Respiratory Rate Respiratory 18 Rate [Anterior Bilateral Throughout] Blood Pressure O2 Sat by Pulse Oximetry - General Appearance General appearance: frail EENT: ATNC Neck: other (trach) Respiratory: Present: Clear to Ascultation Cardiology: regular, S1S2 Integumentary: warm and dry Musculoskeletal: other (no edema) - Lab 05/28/19 10:57 05/28/19 10:57 Most recent lab results ABG pH 7.424 pH Units (7.350-7.450) 03/19/19 04:23 ABG pCO2 48.0 mm Hg 03/19/19 04:23 ABG pO2 78.3 mm Hg (80.0-90.0) L 03/19/19 04:23 ABG HCO3 30.7 mmol/L (20.0-26.0) H 03/19/19 04:23 ABG O2 Saturation 97.0 % (95.0-99.0) 03/19/19 04:23 Calcium 10.2 mg/dL (8.4-10.2) 05/28/19 10:57 Phosphorus 2.60 mg/dL (2.5-4.5) 05/28/19 10:57 Magnesium 2.70 mg/dL (1.7-2.3) H 03/30/19 10:13 Medications & Allergies - Medications Allergies/Adverse Reactions: Allergies haloperidol [From Haldol] Adverse Reaction (Verified 03/13/18 12:10) Unknown haloperidol lactate [From Haldol] Adverse Reaction (Verified 03/13/18 12:10) Unknown Home Medications: Home Medications Medication Instructions Recorded Confirmed Last Taken Type risperiDONE [RisperDAL] 1 mg PO QAM 03/13/18 02/21/19 Unknown History Sertraline [Zoloft] 100 mg PO QDAY 08/26/18 02/21/19 Unknown History Polyethylene Glycol 3350 [Miralax 17 gm PO QDAY #30 packet 11/05/18 02/21/19 Unknown Rx 3350] Aspirin EC [Halfprin EC] 81 mg PO DAILY #30 11/19/18 02/21/19 Unknown Rx Docusate Sodium [Colace CAP] 100 mg PO BID #60 11/19/18 02/21/19 Unknown Rx Folic Acid [Folvite] 1 mg PO DAILY #30 tab 11/19/18 02/21/19 Unknown Rx Famotidine [Pepcid] 20 mg PO DAILY tablet 12/08/18 02/21/19 Unknown Rx Gabapentin 100 mg PO QHS capsule 12/08/18 02/21/19 Unknown Rx Metoprolol [Lopressor TAB] 50 mg PO BID 30 Days tablet 12/08/18 02/21/19 Unkno wn Rx Sevelamer Carbonate [Renvela] 800 mg PO TIDWM tablet 12/08/18 02/21/19 Unknown Rx hydrALAZINE [Apresoline TAB] 100 mg PO Q8HR #120 tablet 12/08/18 02/21/19 Unknown Rx Acetaminophen [Acetaminophen TAB] 650 mg PO Q12H PRN 12/15/18 02/21/19 Unknown History Glucagon,Human Recombinant 1 mg IJ Q15MIN PRN 12/15/18 02/21/19 Unknown History [Glucagon Emergency Kit] Insulin Aspart (Nf) [NovoLOG 100 See Protocol SQ QWEEK 12/15/18 02/21/19 Unknown History UNITS/ML VIAL] Active Medications: Generic Name Dose Route Start Last Admin Trade Name Ismael PRN Reason Stop Dose Admin Acetaminophen 650 mg 05/18/19 23:33 05/28/19 16:57 Tylenol PO 650 mg Q6HR PRN Administration PAIN Albuterol/Ipratropium 1 ampul 02/24/19 20:00 05/30/19 14:44 Duoneb *Not For Prn Use* IH 1 ampul TIDRT SANCHEZ Administration Lipase/Protease/Amylase 1 each 04/10/19 15:[address] 10,500 Unit FEEDTUBE PRN PRN For Clogged Feeding Tube Epoetin Solitario 20,000 unit 03/24/19 11:17 05/27/19 12:19 Procrit IV 20,000 unit UMA PRN Administration hemodialysis Famotidine 20 mg 02/23/19 10:00 05/30/19 09:49 Pepcid PO 20 mg DAILY SANCHEZ Administration Sodium Chloride 100 mls @ 999 mls/hr 05/13/19 12:45 Nacl 0.9% IV UMA PRN Hypotension Insulin Human Regular 0 units 02/26/19 12:00 05/30/19 12:54 Humulin R SUB-Q 1 units Q6HR SANCHEZ Administration Protocol Risperidone 1 mg 02/25/19 13:00 05/30/19 09:49 Risperdal PO 1 mg DAILY SANCHEZ Administration Sertraline HCl 100 mg 02/25/19 13:00 05/30/19 09:49 Zoloft PO 100 mg DAILY SANCHEZ Administration Simple Syrup 15 ml 04/10/19 15:16 Simple Syrup FEEDTUBE PRN PRN Hypoglycemia Simple Syrup 30 ml 04/10/19 15:16 Simple Syrup FEEDTUBE PRN PRN Hypoglycemia Sodium Bicarbonate 325 mg 04/10/19 15:16 Sodium Bicarbonate FEEDTUBE PRN PRN For Clogged Feeding Tube Sodium Hypochlorite 1 applic 04/01/19 13:00 05/30/19 09:49 Dakin's Half Strength TP 1 applicatio BID SANCHEZ Administration
[2019-05-31] MEDS: INSULIN REGULAR, HUMAN 100 UNITS/1 ML SUB-Q SCH ×4 (00:05→17:26)
[2019-05-31] MEDS: IPRATROPIUM/ALBUTEROL SULFATE 3 ML AMPUL.NEB IH SCH ×4 (00:47→20:35)
[2019-05-31] MEDS: risperiDONE 1 MG TAB PO SCH (09:18)
[2019-05-31] MEDS: FAMOTIDINE 20 MG TAB PO SCH (09:18)
[2019-05-31] MEDS: SERTRALINE 100 MG TAB PO SCH (09:18)
[2019-05-31] MEDS: SODIUM HYPOCHLORITE, DAKIN'S 1/2 STRENGTH (0.25%) 473 ML TOPICAL SOLN TP SCH ×2 (09:19→21:22)
--- NOTE | 2019-05-31 10:42 | Progress Note ---
Assessment and Plan 63 y/o male with multiple medical issues admitted with altered mental status, acute respiratory failure requiring mechanical ventilation, now trached, on HD unable to find placement given this combination, now with recurrent fevers. No new recommendations for today. Please see below 1. Continue capping trials. Nasal cannula therapy. 2. HD per renal 3. PT/OT if possible 4. CM working on placement 5. No objection to discharge once placement is found Agree with ID note. Patient is a DNR. He is not to be placed back on the ventilator. Acetinetobacter was seen in lungs last time, most likely could resurface their again. Remainder for those who are not as familiar with this case. Patient has been in the hospital on this particular stay over 3 months. Subjective Date of service: 05/31/19 Principal diagnosis: Respiratory failure, acute on chronic systolic HF, ESRD Interval history: No acute events. Objective Vital Signs - 12hr 05/30/19 05/31/19 05/31/19 23:44 00:47 00:48 Temperature 99.7 F H Pulse Rate 109 H Pulse Rate [ 106 H Anterior Bilateral Throughout] Respiratory 20 Rate Respiratory 18 Rate [Anterior Bilateral Throughout] Blood Pressure 103/55 O2 Sat by Pulse 98 Oximetry O2 Sat by Pulse 98 Oximetry [ Assessment] 05/31/19 05/31/19 06:41 08:00 Temperature 97.6 F Pulse Rate 104 H Pulse Rate [ 104 H Anterior Bilateral Throughout] Respiratory 19 Rate Respiratory 15 Rate [Anterior Bilateral Throughout] Blood Pressure 111/61 O2 Sat by Pulse 97 Oximetry O2 Sat by Pulse Oximetry [ Assessment] Constitutional: no acute distress, other (agitated) Eyes: non-icteric ENT: oropharynx moist Neck: supple, other (tracheostomy tube noted) Effort: normal Ascultation: Bilateral: diminished breath sounds, other (coarse BS bilaterally) Percussion: Bilateral: not dull Cardiovascular: regular rate and rhythm (no mrg) Gastrointestinal: normoactive bowel sounds, soft, non-tender, non-distended, other (ostomy in place, brown stool) Extremities: no cyanosis, no edema, pink and warm Neurologic: other (mild weakness LUE, o/w nonfocal) Psychiatric: other (unable to assess) CBC and BMP: 05/28/19 10:57 05/28/19 10:57 ABG, PT/INR, D-dimer: ABG POC ABG pH 7.510 (7.35-7.45) H 03/18/19 06:38 ABG pH 7.424 pH Units (7.350-7.450) 03/19/19 04:23 POC ABG pCO2 38.9 (35-45) 03/18/19 06:38 ABG pCO2 48.0 mm Hg 03/19/19 04:23 POC ABG pO2 164 (80-105) H 03/18/19 06:38 ABG pO2 78.3 mm Hg (80.0-90.0) L 03/19/19 04:23 POC ABG HCO3 31.0 (22-26 mml/L) 03/18/19 06:38 POC ABG Total CO2 32 (23-27mmol/L) 03/18/19 06:38 POC ABG O2 Sat 100 03/18/19 06:38 ABG O2 Saturation 97.0 % (95.0-99.0) 03/19/19 04:23 PT/INR, D-dimer PT 16.3 Sec. (12.2-14.9) H 03/01/19 09:39 INR 1.35 (0.87-1.13) H 03/01/19 09:39 D-Dimer 2987.82 ng/mlDDU (0-234) H 02/22/19 05:54 Abnormal lab findings: Abnormal Labs 02/21/19 02/21/19 02/21/19 18:30 18:30 18:30 WBC RBC 3.26 L Hgb 8.8 L Hct 29.0 L MCV MCH 27 L MCHC 30 L RDW 19.1 H Plt Count Lymph % (Auto) 6.1 L [place] % (Auto) Eos % (Auto) Baso % (Auto) Lymph # 0.4 L [place] # Eos # Baso # Seg Neutrophils % 86.2 H Seg Neuts % (Manual) Lymphocytes % (Manual) Eosinophils % (Manual) Seg Neutrophils # Lymphocytes # (Manual) Eosinophils # (Manual) PT INR D-Dimer POC ABG pH POC ABG pCO2 POC ABG pO2 ABG pO2 ABG HCO3 ABG Base Excess ABG Hemoglobin Oxyhemoglobin Sodium 133 L Potassium 3.3 L Chloride 93.1 L Carbon Dioxide 33 H BUN Creatinine Glucose 161 H POC Glucose Calcium Phosphorus Magnesium Iron TIBC Transferrin Ferritin ALT Alkaline Phosphatase 136 H Total Creatine Kinase 37 L CK-MB (CK-2) Rel Index Troponin T 0.192 H* Albumin 2.4 L LDL Cholesterol Direct 36 L PTH Intact Salicylates Acetaminophen Crossmatch 02/21/19 02/21/19 02/21/19 18:42 20:04 20:04 WBC RBC Hgb Hct MCV MCH MCHC RDW Plt Count Lymph % (Auto) [place] % (Auto) Eos % (Auto) Baso % (Auto) Lymph # [place] # Eos # Baso # Seg Neutrophils % Seg Neuts % (Manual) Lymphocytes % (Manual) Eosinophils % (Manual) Seg Neutrophils # Lymphocytes # (Manual) Eosinophils # (Manual) PT INR D-Dimer POC ABG pH POC ABG pCO2 56.7 H POC ABG pO2 291 H ABG pO2 ABG HCO3 ABG Base Excess ABG Hemoglobin Oxyhemoglobin Sodium Potassium Chloride Carbon Dioxide BUN Creatinine Glucose POC Glucose Calcium Phosphorus Magnesium Iron TIBC Transferrin Ferritin ALT Alkaline Phosphatase Total Creatine Kinase CK-MB (CK-2) Rel Index Troponin T Albumin LDL Cholesterol Direct PTH Intact Salicylates < 0.3 L Acetaminophen < 5.0 L Crossmatch 02/21/19 02/22/19 02/22/19 22:35 03:42 03:42 WBC RBC 3.20 L Hgb 8.8 L Hct 27.6 L MCV MCH MCHC RDW 18.9 H Plt Count Lymph % (Auto) 7.4 L [place] % (Auto) Eos % (Auto) Baso % (Auto) Lymph # 0.7 L [place] # Eos # Baso # Seg Neutrophils % 84.7 H Seg Neuts % (Manual) Lymphocytes % (Manual) Eosinophils % (Manual) Seg Neutrophils # Lymphocytes # (Manual) Eosinophils # (Manual) PT INR D-Dimer POC ABG pH POC ABG pCO2 POC ABG pO2 ABG pO2 ABG HCO3 ABG Base Excess ABG Hemoglobin Oxyhemoglobin Sodium 134 L Potassium 2.6 L* D Chloride Carbon Dioxide BUN Creatinine Glucose POC Glucose Calcium Phosphorus Magnesium Iron TIBC Transferrin Ferritin ALT Alkaline Phosphatase Total Creatine Kinase CK-MB (CK-2) Rel Index 5.2 H Troponin T 0.202 H* Albumin LDL Cholesterol Direct PTH Intact Salicylates Acetaminophen Crossmatch 02/22/19 02/22/19 02/22/19 03:42 05:54 09:04 WBC RBC Hgb Hct MCV MCH MCHC RDW Plt Count Lymph % (Auto) [place] % (Auto) Eos % (Auto) Baso % (Auto) Lymph # [place] # Eos # Baso # Seg Neutrophils % Seg Neuts % (Manual) Lymphocytes % (Manual) Eosinophils % (Manual) Seg Neutrophils # Lymphocytes # (Manual) Eosinophils # (Manual) PT INR D-Dimer 2987.82 H POC ABG pH 7.451 H POC ABG pCO2 POC ABG pO2 ABG pO2 ABG HCO3 ABG Base Excess ABG Hemoglobin Oxyhemoglobin Sodium Potassium Chloride Carbon Dioxide BUN Creatinine Glucose POC Glucose Calcium Phosphorus Magnesium Iron TIBC Transferrin Ferritin ALT Alkaline Phosphatase Total Creatine Kinase CK-MB (CK-2) Rel Index 5.7 H Troponin T 0.193 H* Albumin LDL Cholesterol Direct PTH Intact Salicylates Acetaminophen Crossmatch 02/22/19 02/22/19 02/23/19 10:36 23:56 00:52 WBC RBC Hgb Hct MCV MCH MCHC RDW Plt Count Lymph % (Auto) [place] % (Auto) Eos % (Auto) Baso % (Auto) Lymph # [place] # Eos # Baso # Seg Neutrophils % Seg Neuts % (Manual) Lymphocytes % (Manual) Eosinophils % (Manual) Seg Neutrophils # Lymphocytes # (Manual) Eosinophils # (Manual) PT INR D-Dimer POC ABG pH POC ABG pCO2 POC ABG pO2 ABG pO2 ABG HCO3 ABG Base Excess ABG Hemoglobin Oxyhemoglobin Sodium Potassium 3.1 L Chloride Carbon Dioxide BUN Creatinine Glucose POC Glucose 58 L 111 H Calcium Phosphorus Magnesium Iron TIBC Transferrin Ferritin ALT Alkaline Phosphatase Total Creatine Kinase CK-MB (CK-2) Rel Index Troponin T Albumin LDL Cholesterol Direct PTH Intact Salicylates Acetaminophen Crossmatch 02/23/19 02/23/19 02/23/19 05:00 06:35 14:26 WBC RBC Hgb Hct MCV MCH MCHC RDW Plt Count Lymph % (Auto) [place] % (Auto) Eos % (Auto) Baso % (Auto) Lymph # [place] # Eos # Baso # Seg Neutrophils % Seg Neuts % (Manual) Lymphocytes % (Manual) Eosinophils % (Manual) Seg Neutrophils # Lymphocytes # (Manual) Eosinophils # (Manual) PT INR D-Dimer POC ABG pH POC ABG pCO2 POC ABG pO2 ABG pO2 ABG HCO3 ABG Base Excess ABG Hemoglobin Oxyhemoglobin Sodium 135 L Potassium 3.1 L Chloride Carbon Dioxide BUN 21 H Creatinine 2.0 H Glucose 57 L POC Glucose 64 L 62 L Calcium Phosphorus Magnesium Iron TIBC Transferrin Ferritin ALT Alkaline Phosphatase Total Creatine Kinase CK-MB (CK-2) Rel Index Troponin T Albumin LDL Cholesterol Direct PTH Intact Salicylates Acetaminophen Crossmatch 02/24/19 02/24/19 02/24/19 02:11 04:12 04:55 WBC RBC 2.84 L Hgb 7.8 L Hct 24.5 L MCV MCH MCHC RDW 19.5 H Plt Count Lymph % (Auto) [place] % (Auto) Eos % (Auto) Baso % (Auto) Lymph # [place] # Eos # Baso # Seg Neutrophils % Seg Neuts % (Manual) Lymphocytes % (Manual) Eosinophils % (Manual) Seg Neutrophils # Lymphocytes # (Manual) Eosinophils # (Manual) PT INR D-Dimer POC ABG pH 7.511 H POC ABG pCO2 33.9 L POC ABG pO2 62 L ABG pO2 ABG HCO3 ABG Base Excess ABG Hemoglobin Oxyhemoglobin Sodium Potassium Chloride Carbon Dioxide BUN Creatinine Glucose POC Glucose 69 L Calcium Phosphorus Magnesium Iron TIBC Transferrin Ferritin ALT Alkaline Phosphatase Total Creatine Kinase CK-MB (CK-2) Rel Index Troponin T Albumin LDL Cholesterol Direct PTH Intact Salicylates Acetaminophen Crossmatch 02/24/19 02/24/19 02/25/19 04:55 05:41 04:45 WBC RBC Hgb Hct MCV MCH MCHC RDW Plt Count Lymph % (Auto) [place] % (Auto) Eos % (Auto) Baso % (Auto) Lymph # [place] # Eos # Baso # Seg Neutrophils % Seg Neuts % (Manual) Lymphocytes % (Manual) Eosinophils % (Manual) Seg Neutrophils # Lymphocytes # (Manual) Eosinophils # (Manual) PT INR D-Dimer POC ABG pH 7.466 H POC ABG pCO2 POC ABG pO2 75 L ABG pO2 ABG HCO3 ABG Base Excess ABG Hemoglobin Oxyhemoglobin Sodium Potassium Chloride Carbon Dioxide BUN Creatinine 1.8 H Glucose 73 L POC Glucose 127 H Calcium Phosphorus Magnesium Iron TIBC Transferrin Ferritin ALT Alkaline Phosphatase Total Creatine Kinase CK-MB (CK-2) Rel Index Troponin T Albumin LDL Cholesterol Direct PTH Intact Salicylates Acetaminophen Crossmatch 02/25/19 02/25/19 02/26/19 16:34 21:33 03:45 WBC RBC 2.96 L Hgb 8.0 L Hct 25.8 L MCV MCH 27 L MCHC 31 L RDW 20.0 H Plt Count Lymph % (Auto) [place] % (Auto) Eos % (Auto) Baso % (Auto) Lymph # [place] # Eos # Baso # Seg Neutrophils % Seg Neuts % (Manual) Lymphocytes % (Manual) Eosinophils % (Manual) Seg Neutrophils # Lymphocytes # (Manual) Eosinophils # (Manual) PT INR D-Dimer POC ABG pH POC ABG pCO2 POC ABG pO2 ABG pO2 ABG HCO3 ABG Base Excess ABG Hemoglobin Oxyhemoglobin Sodium Potassium Chloride Carbon Dioxide BUN Creatinine Glucose POC Glucose 141 H 106 H Calcium Phosphorus Magnesium Iron TIBC Transferrin Ferritin ALT Alkaline Phosphatase Total Creatine Kinase CK-MB (CK-2) Rel Index Troponin T Albumin LDL Cholesterol Direct PTH Intact Salicylates Acetaminophen Crossmatch 02/26/19 02/26/19 02/26/19 03:45 04:13 07:53 WBC RBC Hgb Hct MCV MCH MCHC RDW Plt Count Lymph % (Auto) [place] % (Auto) Eos % (Auto) Baso % (Auto) Lymph # [place] # Eos # Baso # Seg Neutrophils % Seg Neuts % (Manual) Lymphocytes % (Manual) Eosinophils % (Manual) Seg Neutrophils # Lymphocytes # (Manual) Eosinophils # (Manual) PT INR D-Dimer POC ABG pH 7.470 H POC ABG pCO2 POC ABG pO2 ABG pO2 ABG HCO3 ABG Base Excess ABG Hemoglobin Oxyhemoglobin Sodium Potassium Chloride Carbon Dioxide BUN Creatinine 1.8 H Glucose POC Glucose 110 H Calcium Phosphorus Magnesium Iron TIBC Transferrin Ferritin ALT Alkaline Phosphatase Total Creatine Kinase CK-MB (CK-2) Rel Index Troponin T Albumin LDL Cholesterol Direct PTH Intact Salicylates Acetaminophen Crossmatch 02/26/19 02/26/19 02/27/19 11:56 17:43 00:12 WBC RBC Hgb Hct MCV MCH MCHC RDW Plt Count Lymph % (Auto) [place] % (Auto) Eos % (Auto) Baso % (Auto) Lymph # [place] # Eos # Baso # Seg Neutrophils % Seg Neuts % (Manual) Lymphocytes % (Manual) Eosinophils % (Manual) Seg Neutrophils # Lymphocytes # (Manual) Eosinophils # (Manual) PT INR D-Dimer POC ABG pH POC ABG pCO2 POC ABG pO2 ABG pO2 ABG HCO3 ABG Base Excess ABG Hemoglobin Oxyhemoglobin Sodium Potassium Chloride Carbon Dioxide BUN Creatinine Glucose POC Glucose 112 H 127 H 127 H Calcium Phosphorus Magnesium Iron TIBC Transferrin Ferritin ALT Alkaline Phosphatase Total Creatine Kinase CK-MB (CK-2) Rel Index Troponin T Albumin LDL Cholesterol Direct PTH Intact Salicylates Acetaminophen Crossmatch 02/27/19 02/27/19 02/27/19 04:35 13:15 18:02 WBC RBC Hgb Hct MCV MCH MCHC RDW Plt Count Lymph % (Auto) [place] % (Auto) Eos % (Auto) Baso % (Auto) Lymph # [place] # Eos # Baso # Seg Neutrophils % Seg Neuts % (Manual) Lymphocytes % (Manual) Eosinophils % (Manual) Seg Neutrophils # Lymphocytes # (Manual) Eosinophils # (Manual) PT INR D-Dimer POC ABG pH 7.483 H POC ABG pCO2 POC ABG pO2 61 L ABG pO2 ABG HCO3 ABG Base Excess ABG Hemoglobin Oxyhemoglobin Sodium Potassium Chloride Carbon Dioxide BUN Creatinine Glucose POC Glucose 143 H 106 H Calcium Phosphorus Magnesium Iron TIBC Transferrin Ferritin ALT Alkaline Phosphatase Total Creatine Kinase CK-MB (CK-2) Rel Index Troponin T Albumin LDL Cholesterol Direct PTH Intact Salicylates Acetaminophen Crossmatch 02/28/19 02/28/19 02/28/19 05:50 11:59 17:52 WBC RBC Hgb Hct MCV MCH MCHC RDW Plt Count Lymph % (Auto) [place] % (Auto) Eos % (Auto) Baso % (Auto) Lymph # [place] # Eos # Baso # Seg Neutrophils % Seg Neuts % (Manual) Lymphocytes % (Manual) Eosinophils % (Manual) Seg Neutrophils # Lymphocytes # (Manual) Eosinophils # (Manual) PT INR D-Dimer POC ABG pH POC ABG pCO2 POC ABG pO2 ABG pO2 ABG HCO3 ABG Base Excess ABG Hemoglobin Oxyhemoglobin Sodium Potassium Chloride Carbon Dioxide BUN Creatinine Glucose POC Glucose 134 H 128 H 142 H Calcium Phosphorus Magnesium Iron TIBC Transferrin Ferritin ALT Alkaline Phosphatase Total Creatine Kinase CK-MB (CK-2) Rel Index Troponin T Albumin LDL Cholesterol Direct PTH Intact Salicylates Acetaminophen Crossmatch 02/28/19 03/01/19 03/01/19 23:13 05:40 09:39 WBC RBC Hgb Hct MCV MCH MCHC RDW Plt Count Lymph % (Auto) [place] % (Auto) Eos % (Auto) Baso % (Auto) Lymph # [place] # Eos # Baso # Seg Neutrophils % Seg Neuts % (Manual) Lymphocytes % (Manual) Eosinophils % (Manual) Seg Neutrophils # Lymphocytes # (Manual) Eosinophils # (Manual) PT 16.3 H INR 1.35 H D-Dimer POC ABG pH POC ABG pCO2 POC ABG pO2 ABG pO2 ABG HCO3 ABG Base Excess ABG Hemoglobin Oxyhemoglobin Sodium Potassium Chloride Carbon Dioxide BUN Creatinine Glucose POC Glucose 112 H 111 H Calcium Phosphorus Magnesium Iron TIBC Transferrin Ferritin ALT Alkaline Phosphatase Total Creatine Kinase CK-MB (CK-2) Rel Index Troponin T Albumin LDL Cholesterol Direct PTH Intact Salicylates Acetaminophen Crossmatch 03/01/19 03/01/19 03/01/19 11:56 13:54 17:59 WBC RBC Hgb Hct MCV MCH MCHC RDW Plt Count Lymph % (Auto) [place] % (Auto) Eos % (Auto) Baso % (Auto) Lymph # [place] # Eos # Baso # Seg Neutrophils % Seg Neuts % (Manual) Lymphocytes % (Manual) Eosinophils % (Manual) Seg Neutrophils # Lymphocytes # (Manual) Eosinophils # (Manual) PT INR D-Dimer POC ABG pH POC ABG pCO2 POC ABG pO2 ABG pO2 ABG HCO3 ABG Base Excess ABG Hemoglobin Oxyhemoglobin Sodium Potassium Chloride Carbon Dioxide BUN 33 H Creatinine 2.8 H D Glucose 176 H POC Glucose 199 H 147 H Calcium Phosphorus Magnesium Iron TIBC Transferrin Ferritin ALT Alkaline Phosphatase Total Creatine Kinase CK-MB (CK-2) Rel Index Troponin T Albumin LDL Cholesterol Direct PTH Intact Salicylates Acetaminophen Crossmatch 03/02/19 03/02/19 03/02/19 05:15 05:15 05:15 WBC RBC 2.73 L Hgb 7.4 L Hct 23.0 L MCV MCH 27 L MCHC RDW 19.9 H Plt Count Lymph % (Auto) [place] % (Auto) 7.9 H Eos % (Auto) 7.6 H Baso % (Auto) Lymph # 1.0 L [place] # Eos # 0.5 H Baso # Seg Neutrophils % Seg Neuts % (Manual) Lymphocytes % (Manual) Eosinophils % (Manual) Seg Neutrophils # Lymphocytes # (Manual) Eosinophils # (Manual) PT INR D-Dimer POC ABG pH POC ABG pCO2 POC ABG pO2 ABG pO2 ABG HCO3 ABG Base Excess ABG Hemoglobin Oxyhemoglobin Sodium Potassium Chloride Carbon Dioxide BUN 43 H Creatinine 3.2 H Glucose POC Glucose Calcium Phosphorus 2.30 L Magnesium Iron TIBC Transferrin Ferritin ALT Alkaline Phosphatase Total Creatine Kinase CK-MB (CK-2) Rel Index Troponin T Albumin LDL Cholesterol Direct PTH Intact 267.6 H Salicylates Acetaminophen Crossmatch 03/02/19 03/02/19 03/03/19 12:32 18:20 13:30 WBC RBC Hgb Hct MCV MCH MCHC RDW Plt Count Lymph % (Auto) [place] % (Auto) Eos % (Auto) Baso % (Auto) Lymph # [place] # Eos # Baso # Seg Neutrophils % Seg Neuts % (Manual) Lymphocytes % (Manual) Eosinophils % (Manual) Seg Neutrophils # Lymphocytes # (Manual) Eosinophils # (Manual) PT INR D-Dimer POC ABG pH POC ABG pCO2 POC ABG pO2 ABG pO2 ABG HCO3 ABG Base Excess ABG Hemoglobin Oxyhemoglobin Sodium Potassium Chloride 97.3 L Carbon Dioxide BUN 26 H Creatinine 2.2 H Glucose 73 L POC Glucose 111 H 156 H Calcium Phosphorus Magnesium Iron TIBC Transferrin Ferritin ALT Alkaline Phosphatase Total Creatine Kinase CK-MB (CK-2) Rel Index Troponin T Albumin LDL Cholesterol Direct PTH Intact Salicylates Acetaminophen Crossmatch 03/04/19 03/04/19 03/04/19 00:02 05:37 05:40 WBC RBC 2.63 L Hgb 7.2 L Hct 22.2 L MCV MCH MCHC RDW 20.2 H Plt Count Lymph % (Auto) 10.5 L [place] % (Auto) Eos % (Auto) 4.6 H Baso % (Auto) Lymph # 0.7 L [place] # Eos # Baso # Seg Neutrophils % 76.9 H Seg Neuts % (Manual) Lymphocytes % (Manual) Eosinophils % (Manual) Seg Neutrophils # Lymphocytes # (Manual) Eosinophils # (Manual) PT INR D-Dimer POC ABG pH POC ABG pCO2 POC ABG pO2 ABG pO2 ABG HCO3 ABG Base Excess ABG Hemoglobin Oxyhemoglobin Sodium Potassium Chloride Carbon Dioxide BUN Creatinine Glucose POC Glucose 136 H 123 H Calcium Phosphorus Magnesium Iron TIBC Transferrin Ferritin ALT Alkaline Phosphatase Total Creatine Kinase CK-MB (CK-2) Rel Index Troponin T Albumin LDL Cholesterol Direct PTH Intact Salicylates Acetaminophen Crossmatch 03/04/19 03/04/19 03/04/19 05:40 11:39 23:20 WBC RBC Hgb Hct MCV MCH MCHC RDW Plt Count Lymph % (Auto) [place] % (Auto) Eos % (Auto) Baso % (Auto) Lymph # [place] # Eos # Baso # Seg Neutrophils % Seg Neuts % (Manual) Lymphocytes % (Manual) Eosinophils % (Manual) Seg Neutrophils # Lymphocytes # (Manual) Eosinophils # (Manual) PT INR D-Dimer POC ABG pH POC ABG pCO2 POC ABG pO2 ABG pO2 ABG HCO3 ABG Base Excess ABG Hemoglobin Oxyhemoglobin Sodium Potassium Chloride Carbon Dioxide BUN 34 H Creatinine 2.7 H Glucose 114 H POC Glucose 175 H 151 H Calcium Phosphorus Magnesium Iron TIBC Transferrin Ferritin ALT Alkaline Phosphatase Total Creatine Kinase CK-MB (CK-2) Rel Index Troponin T Albumin LDL Cholesterol Direct PTH Intact Salicylates Acetaminophen Crossmatch 03/05/19 03/05/19 03/05/19 05:37 12:08 17:11 WBC RBC Hgb Hct MCV MCH MCHC RDW Plt Count Lymph % (Auto) [place] % (Auto) Eos % (Auto) Baso % (Auto) Lymph # [place] # Eos # Baso # Seg Neutrophils % Seg Neuts % (Manual) Lymphocytes % (Manual) Eosinophils % (Manual) Seg Neutrophils # Lymphocytes # (Manual) Eosinophils # (Manual) PT INR D-Dimer POC ABG pH POC ABG pCO2 POC ABG pO2 ABG pO2 ABG HCO3 ABG Base Excess ABG Hemoglobin Oxyhemoglobin Sodium Potassium Chloride Carbon Dioxide BUN Creatinine Glucose POC Glucose 134 H 135 H 135 H Calcium Phosphorus Magnesium Iron TIBC Transferrin Ferritin ALT Alkaline Phosphatase Total Creatine Kinase CK-MB (CK-2) Rel Index Troponin T Albumin LDL Cholesterol Direct PTH Intact Salicylates Acetaminophen Crossmatch 03/06/19 03/06/19 03/06/19 00:16 13:05 18:09 WBC RBC Hgb Hct MCV MCH MCHC RDW Plt Count Lymph % (Auto) [place] % (Auto) Eos % (Auto) Baso % (Auto) Lymph # [place] # Eos # Baso # Seg Neutrophils % Seg Neuts % (Manual) Lymphocytes % (Manual) Eosinophils % (Manual) Seg Neutrophils # Lymphocytes # (Manual) Eosinophils # (Manual) PT INR D-Dimer POC ABG pH POC ABG pCO2 POC ABG pO2 ABG pO2 ABG HCO3 ABG Base Excess ABG Hemoglobin Oxyhemoglobin Sodium Potassium Chloride Carbon Dioxide BUN Creatinine Glucose POC Glucose 117 H 113 H 131 H Calcium Phosphorus Magnesium Iron TIBC Transferrin Ferritin ALT Alkaline Phosphatase Total Creatine Kinase CK-MB (CK-2) Rel Index Troponin T Albumin LDL Cholesterol Direct PTH Intact Salicylates Acetaminophen Crossmatch 03/07/19 03/08/19 03/08/19 05:25 05:33 16:00 WBC RBC 2.44 L Hgb 6.6 L Hct 20.8 L MCV MCH 27 L MCHC RDW 19.2 H Plt Count Lymph % (Auto) [place] % (Auto) Eos % (Auto) 8.6 H Baso % (Auto) Lymph # 0.8 L [place] # Eos # 0.5 H Baso # Seg Neutrophils % 70.7 H Seg Neuts % (Manual) Lymphocytes % (Manual) Eosinophils % (Manual) Seg Neutrophils # Lymphocytes # (Manual) Eosinophils # (Manual) PT INR D-Dimer POC ABG pH POC ABG pCO2 POC ABG pO2 ABG pO2 ABG HCO3 ABG Base Excess ABG Hemoglobin Oxyhemoglobin Sodium Potassium Chloride Carbon Dioxide BUN Creatinine Glucose POC Glucose 106 H 108 H Calcium Phosphorus Magnesium Iron TIBC Transferrin Ferritin ALT Alkaline Phosphatase Total Creatine Kinase CK-MB (CK-2) Rel Index Troponin T Albumin LDL Cholesterol Direct PTH Intact Salicylates Acetaminophen Crossmatch 03/08/19 03/08/19 03/08/19 16:00 18:38 Unknown WBC RBC Hgb Hct MCV MCH MCHC RDW Plt Count Lymph % (Auto) [place] % (Auto) Eos % (Auto) Baso % (Auto) Lymph # [place] # Eos # Baso # Seg Neutrophils % Seg Neuts % (Manual) Lymphocytes % (Manual) Eosinophils % (Manual) Seg Neutrophils # Lymphocytes # (Manual) Eosinophils # (Manual) PT INR D-Dimer POC ABG pH POC ABG pCO2 POC ABG pO2 ABG pO2 ABG HCO3 ABG Base Excess ABG Hemoglobin Oxyhemoglobin Sodium Potassium 5.4 H D Chloride Carbon Dioxide BUN 47 H Creatinine 2.6 H Glucose POC Glucose 123 H Calcium Phosphorus Magnesium Iron TIBC Transferrin Ferritin ALT < 5 L Alkaline Phosphatase Total Creatine Kinase CK-MB (CK-2) Rel Index Troponin T Albumin 2.2 L LDL Cholesterol Direct PTH Intact Salicylates Acetaminophen Crossmatch See Detail 03/09/19 03/09/19 03/09/19 10:48 12:28 13:53 WBC RBC 2.85 L Hgb 7.7 L Hct 24.2 L MCV MCH 27 L MCHC RDW 18.7 H Plt Count Lymph % (Auto) [place] % (Auto) Eos % (Auto) Baso % (Auto) Lymph # [place] # Eos # Baso # Seg Neutrophils % Seg Neuts % (Manual) Lymphocytes % (Manual) Eosinophils % (Manual) Seg Neutrophils # Lymphocytes # (Manual) Eosinophils # (Manual) PT INR D-Dimer POC ABG pH POC ABG pCO2 POC ABG pO2 ABG pO2 ABG HCO3 30.5 H ABG Base Excess 5.6 H ABG Hemoglobin 8.1 L Oxyhemoglobin 93.8 L Sodium Potassium Chloride Carbon Dioxide BUN Creatinine Glucose POC Glucose 114 H Calcium Phosphorus Magnesium Iron TIBC Transferrin Ferritin ALT Alkaline Phosphatase Total Creatine Kinase CK-MB (CK-2) Rel Index Troponin T Albumin LDL Cholesterol Direct PTH Intact Salicylates Acetaminophen Crossmatch 03/09/19 03/09/19 03/10/19 17:58 23:53 12:01 WBC RBC Hgb Hct MCV MCH MCHC RDW Plt Count Lymph % (Auto) [place] % (Auto) Eos % (Auto) Baso % (Auto) Lymph # [place] # Eos # Baso # Seg Neutrophils % Seg Neuts % (Manual) Lymphocytes % (Manual) Eosinophils % (Manual) Seg Neutrophils # Lymphocytes # (Manual) Eosinophils # (Manual) PT INR D-Dimer POC ABG pH POC ABG pCO2 POC ABG pO2 ABG pO2 ABG HCO3 ABG Base Excess ABG Hemoglobin Oxyhemoglobin Sodium Potassium Chloride Carbon Dioxide BUN Creatinine Glucose POC Glucose 108 H 128 H 144 H Calcium Phosphorus Magnesium Iron TIBC Transferrin Ferritin ALT Alkaline Phosphatase Total Creatine Kinase CK-MB (CK-2) Rel Index Troponin T Albumin LDL Cholesterol Direct PTH Intact Salicylates Acetaminophen Crossmatch 03/10/19 03/11/19 03/11/19 16:50 00:24 05:02 WBC RBC Hgb Hct MCV MCH MCHC RDW Plt Count Lymph % (Auto) [place] % (Auto) Eos % (Auto) Baso % (Auto) Lymph # [place] # Eos # Baso # Seg Neutrophils % Seg Neuts % (Manual) Lymphocytes % (Manual) Eosinophils % (Manual) Seg Neutrophils # Lymphocytes # (Manual) Eosinophils # (Manual) PT INR D-Dimer POC ABG pH POC ABG pCO2 POC ABG pO2 ABG pO2 ABG HCO3 ABG Base Excess ABG Hemoglobin Oxyhemoglobin Sodium Potassium Chloride Carbon Dioxide BUN Creatinine Glucose POC Glucose 147 H 123 H 120 H Calcium Phosphorus Magnesium Iron TIBC Transferrin Ferritin ALT Alkaline Phosphatase Total Creatine Kinase CK-MB (CK-2) Rel Index Troponin T Albumin LDL Cholesterol Direct PTH Intact Salicylates Acetaminophen Crossmatch 03/11/19 03/11/19 03/11/19 11:56 12:20 18:37 WBC RBC Hgb Hct MCV MCH MCHC RDW Plt Count Lymph % (Auto) [place] % (Auto) Eos % (Auto) Baso % (Auto) Lymph # [place] # Eos # Baso # Seg Neutrophils % Seg Neuts % (Manual) Lymphocytes % (Manual) Eosinophils % (Manual) Seg Neutrophils # Lymphocytes # (Manual) Eosinophils # (Manual) PT INR D-Dimer POC ABG pH POC ABG pCO2 POC ABG pO2 ABG pO2 ABG HCO3 ABG Base Excess ABG Hemoglobin Oxyhemoglobin Sodium Potassium 5.2 H Chloride Carbon Dioxide BUN Creatinine Glucose POC Glucose 123 H 125 H Calcium Phosphorus Magnesium Iron TIBC Transferrin Ferritin ALT Alkaline Phosphatase Total Creatine Kinase CK-MB (CK-2) Rel Index Troponin T Albumin LDL Cholesterol Direct PTH Intact Salicylates Acetaminophen Crossmatch 03/11/19 03/12/19 03/12/19 22:52 12:04 18:25 WBC RBC Hgb Hct MCV MCH MCHC RDW Plt Count Lymph % (Auto) [place] % (Auto) Eos % (Auto) Baso % (Auto) Lymph # [place] # Eos # Baso # Seg Neutrophils % Seg Neuts % (Manual) Lymphocytes % (Manual) Eosinophils % (Manual) Seg Neutrophils # Lymphocytes # (Manual) Eosinophils # (Manual) PT INR D-Dimer POC ABG pH POC ABG pCO2 POC ABG pO2 ABG pO2 ABG HCO3 ABG Base Excess ABG Hemoglobin Oxyhemoglobin Sodium Potassium Chloride Carbon Dioxide BUN Creatinine Glucose POC Glucose 110 H 106 H 118 H Calcium Phosphorus Magnesium Iron TIBC Transferrin Ferritin ALT Alkaline Phosphatase Total Creatine Kinase CK-MB (CK-2) Rel Index Troponin T Albumin LDL Cholesterol Direct PTH Intact Salicylates Acetaminophen Crossmatch 03/12/19 03/13/19 03/13/19 23:36 04:38 04:38 WBC RBC 2.95 L Hgb 7.9 L Hct 24.9 L MCV MCH 27 L MCHC RDW 19.9 H Plt Count Lymph % (Auto) 11.1 L [place] % (Auto) 8.1 H Eos % (Auto) 4.4 H Baso % (Auto) Lymph # 0.9 L [place] # Eos # Baso # Seg Neutrophils % 75.4 H Seg Neuts % (Manual) Lymphocytes % (Manual) Eosinophils % (Manual) Seg Neutrophils # Lymphocytes # (Manual) Eosinophils # (Manual) PT INR D-Dimer POC ABG pH POC ABG pCO2 POC ABG pO2 ABG pO2 ABG HCO3 ABG Base Excess ABG Hemoglobin Oxyhemoglobin Sodium 136 L Potassium 5.1 H Chloride 93.8 L Carbon Dioxide BUN 48 H Creatinine 2.7 H Glucose 102 H POC Glucose 115 H Calcium Phosphorus Magnesium Iron TIBC Transferrin Ferritin ALT < 5 L Alkaline Phosphatase 143 H Total Creatine Kinase CK-MB (CK-2) Rel Index Troponin T Albumin 2.5 L LDL Cholesterol Direct PTH Intact Salicylates Acetaminophen Crossmatch 03/13/19 03/13/19 03/13/19 05:33 13:37 18:03 WBC RBC Hgb Hct MCV MCH MCHC RDW Plt Count Lymph % (Auto) [place] % (Auto) Eos % (Auto) Baso % (Auto) Lymph # [place] # Eos # Baso # Seg Neutrophils % Seg Neuts % (Manual) Lymphocytes % (Manual) Eosinophils % (Manual) Seg Neutrophils # Lymphocytes # (Manual) Eosinophils # (Manual) PT INR D-Dimer POC ABG pH POC ABG pCO2 POC ABG pO2 ABG pO2 ABG HCO3 ABG Base Excess ABG Hemoglobin Oxyhemoglobin Sodium Potassium Chloride Carbon Dioxide BUN Creatinine Glucose POC Glucose 140 H 150 H 158 H Calcium Phosphorus Magnesium Iron TIBC Transferrin Ferritin ALT Alkaline Phosphatase Total Creatine Kinase CK-MB (CK-2) Rel Index Troponin T Albumin LDL Cholesterol Direct PTH Intact Salicylates Acetaminophen Crossmatch 03/13/19 03/14/19 03/14/19 23:32 05:24 12:20 WBC RBC Hgb Hct MCV MCH MCHC RDW Plt Count Lymph % (Auto) [place] % (Auto) Eos % (Auto) Baso % (Auto) Lymph # [place] # Eos # Baso # Seg Neutrophils % Seg Neuts % (Manual) Lymphocytes % (Manual) Eosinophils % (Manual) Seg Neutrophils # Lymphocytes # (Manual) Eosinophils # (Manual) PT INR D-Dimer POC ABG pH POC ABG pCO2 POC ABG pO2 ABG pO2 ABG HCO3 ABG Base Excess ABG Hemoglobin Oxyhemoglobin Sodium Potassium Chloride Carbon Dioxide BUN Creatinine Glucose POC Glucose 162 H 146 H 127 H Calcium Phosphorus Magnesium Iron TIBC Transferrin Ferritin ALT Alkaline Phosphatase Total Creatine Kinase CK-MB (CK-2) Rel Index Troponin T Albumin LDL Cholesterol Direct PTH Intact Salicylates Acetaminophen Crossmatch 03/14/19 03/14/19 03/15/19 18:05 23:57 04:38 WBC 12.8 H RBC 3.11 L Hgb 8.1 L Hct 26.5 L MCV MCH 26 L MCHC 31 L RDW 19.7 H Plt Count Lymph % (Auto) 4.4 L [place] % (Auto) 7.4 H Eos % (Auto) Baso % (Auto) Lymph # 0.6 L [place] # 0.9 H Eos # Baso # Seg Neutrophils % 87.3 H Seg Neuts % (Manual) Lymphocytes % (Manual) Eosinophils % (Manual) Seg Neutrophils # 11.2 H Lymphocytes # (Manual) Eosinophils # (Manual) PT INR D-Dimer POC ABG pH POC ABG pCO2 POC ABG pO2 ABG pO2 ABG HCO3 ABG Base Excess ABG Hemoglobin Oxyhemoglobin Sodium Potassium Chloride Carbon Dioxide BUN Creatinine Glucose POC Glucose 142 H 155 H Calcium Phosphorus Magnesium Iron TIBC Transferrin Ferritin ALT Alkaline Phosphatase Total Creatine Kinase CK-MB (CK-2) Rel Index Troponin T Albumin LDL Cholesterol Direct PTH Intact Salicylates Acetaminophen Crossmatch 03/15/19 03/15/19 03/15/19 04:38 05:31 11:32 WBC RBC Hgb Hct MCV MCH MCHC RDW Plt Count Lymph % (Auto) [place] % (Auto) Eos % (Auto) Baso % (Auto) Lymph # [place] # Eos # Baso # Seg Neutrophils % Seg Neuts % (Manual) Lymphocytes % (Manual) Eosinophils % (Manual) Seg Neutrophils # Lymphocytes # (Manual) Eosinophils # (Manual) PT INR D-Dimer POC ABG pH POC ABG pCO2 POC ABG pO2 ABG pO2 ABG HCO3 ABG Base Excess ABG Hemoglobin Oxyhemoglobin Sodium 135 L Potassium Chloride 91.9 L Carbon Dioxide BUN 54 H Creatinine 2.8 H Glucose 128 H POC Glucose 160 H 109 H Calcium 11.1 H Phosphorus Magnesium Iron TIBC Transferrin Ferritin ALT Alkaline Phosphatase 161 H Total Creatine Kinase CK-MB (CK-2) Rel Index Troponin T Albumin 2.3 L LDL Cholesterol Direct PTH Intact Salicylates Acetaminophen Crossmatch 03/15/19 03/15/19 03/16/19 18:15 23:41 05:40 WBC RBC Hgb Hct MCV MCH MCHC RDW Plt Count Lymph % (Auto) [place] % (Auto) Eos % (Auto) Baso % (Auto) Lymph # [place] # Eos # Baso # Seg Neutrophils % Seg Neuts % (Manual) Lymphocytes % (Manual) Eosinophils % (Manual) Seg Neutrophils # Lymphocytes # (Manual) Eosinophils # (Manual) PT INR D-Dimer POC ABG pH POC ABG pCO2 POC ABG pO2 ABG pO2 ABG HCO3 ABG Base Excess ABG Hemoglobin Oxyhemoglobin Sodium Potassium Chloride Carbon Dioxide BUN Creatinine Glucose POC Glucose 151 H 110 H 163 H Calcium Phosphorus Magnesium Iron TIBC Transferrin Ferritin ALT Alkaline Phosphatase Total Creatine Kinase CK-MB (CK-2) Rel Index Troponin T Albumin LDL Cholesterol Direct PTH Intact Salicylates Acetaminophen Crossmatch 03/16/19 03/16/19 03/16/19 11:55 17:04 23:58 WBC RBC Hgb Hct MCV MCH MCHC RDW Plt Count Lymph % (Auto) [place] % (Auto) Eos % (Auto) Baso % (Auto) Lymph # [place] # Eos # Baso # Seg Neutrophils % Seg Neuts % (Manual) Lymphocytes % (Manual) Eosinophils % (Manual) Seg Neutrophils # Lymphocytes # (Manual) Eosinophils # (Manual) PT INR D-Dimer POC ABG pH POC ABG pCO2 POC ABG pO2 ABG pO2 ABG HCO3 ABG Base Excess ABG Hemoglobin Oxyhemoglobin Sodium Potassium Chloride Carbon Dioxide BUN Creatinine Glucose POC Glucose 114 H 147 H 192 H Calcium Phosphorus Magnesium Iron TIBC Transferrin Ferritin ALT Alkaline Phosphatase Total Creatine Kinase CK-MB (CK-2) Rel Index Troponin T Albumin LDL Cholesterol Direct PTH Intact Salicylates Acetaminophen Crossmatch 03/17/19 03/17/19 03/17/19 05:53 11:17 17:01 WBC RBC Hgb Hct MCV MCH MCHC RDW Plt Count Lymph % (Auto) [place] % (Auto) Eos % (Auto) Baso % (Auto) Lymph # [place] # Eos # Baso # Seg Neutrophils % Seg Neuts % (Manual) Lymphocytes % (Manual) Eosinophils % (Manual) Seg Neutrophils # Lymphocytes # (Manual) Eosinophils # (Manual) PT INR D-Dimer POC ABG pH POC ABG pCO2 POC ABG pO2 ABG pO2 ABG HCO3 ABG Base Excess ABG Hemoglobin Oxyhemoglobin Sodium Potassium Chloride Carbon Dioxide BUN Creatinine Glucose POC Glucose 151 H 161 H 152 H Calcium Phosphorus Magnesium Iron TIBC Transferrin Ferritin ALT Alkaline Phosphatase Total Creatine Kinase CK-MB (CK-2) Rel Index Troponin T Albumin LDL Cholesterol Direct PTH Intact Salicylates Acetaminophen Crossmatch 03/17/19 03/18/19 03/18/19 21:47 04:15 04:44 WBC RBC Hgb Hct MCV MCH MCHC RDW Plt Count Lymph % (Auto) [place] % (Auto) Eos % (Auto) Baso % (Auto) Lymph # [place] # Eos # Baso # Seg Neutrophils % Seg Neuts % (Manual) Lymphocytes % (Manual) Eosinophils % (Manual) Seg Neutrophils # Lymphocytes # (Manual) Eosinophils # (Manual) PT INR D-Dimer POC ABG pH POC ABG pCO2 POC ABG pO2 ABG pO2 102.8 H ABG HCO3 28.3 H ABG Base Excess ABG Hemoglobin 10.4 L Oxyhemoglobin 94.5 L Sodium Potassium Chloride Carbon Dioxide BUN Creatinine Glucose POC Glucose 170 H 150 H Calcium Phosphorus Magnesium Iron TIBC Transferrin Ferritin ALT Alkaline Phosphatase Total Creatine Kinase CK-MB (CK-2) Rel Index Troponin T Albumin LDL Cholesterol Direct PTH Intact Salicylates Acetaminophen Crossmatch 03/18/19 03/18/19 03/18/19 06:38 12:12 17:47 WBC RBC Hgb Hct MCV MCH MCHC RDW Plt Count Lymph % (Auto) [place] % (Auto) Eos % (Auto) Baso % (Auto) Lymph # [place] # Eos # Baso # Seg Neutrophils % Seg Neuts % (Manual) Lymphocytes % (Manual) Eosinophils % (Manual) Seg Neutrophils # Lymphocytes # (Manual) Eosinophils # (Manual) PT INR D-Dimer POC ABG pH 7.510 H POC ABG pCO2 POC ABG pO2 164 H ABG pO2 ABG HCO3 ABG Base Excess ABG Hemoglobin Oxyhemoglobin Sodium Potassium Chloride Carbon Dioxide BUN Creatinine Glucose POC Glucose 145 H 149 H Calcium Phosphorus Magnesium Iron TIBC Transferrin Ferritin ALT Alkaline Phosphatase Total Creatine Kinase CK-MB (CK-2) Rel Index Troponin T Albumin LDL Cholesterol Direct PTH Intact Salicylates Acetaminophen Crossmatch 03/18/19 03/19/19 03/19/19 23:25 01:11 04:23 WBC 15.6 H RBC 2.51 L Hgb 6.5 L Hct 21.6 L MCV MCH 26 L MCHC 30 L RDW 19.8 H Plt Count Lymph % (Auto) 6.0 L [place] % (Auto) Eos % (Auto) Baso % (Auto) Lymph # 0.9 L [place] # 1.0 H Eos # Baso # Seg Neutrophils % 85.5 H Seg Neuts % (Manual) Lymphocytes % (Manual) Eosinophils % (Manual) Seg Neutrophils # 13.4 H Lymphocytes # (Manual) Eosinophils # (Manual) PT INR D-Dimer POC ABG pH POC ABG pCO2 POC ABG pO2 ABG pO2 78.3 L ABG HCO3 30.7 H ABG Base Excess 5.8 H ABG Hemoglobin 5.8 L Oxyhemoglobin 94.6 L Sodium Potassium Chloride Carbon Dioxide BUN Creatinine Glucose POC Glucose 190 H Calcium Phosphorus Magnesium Iron TIBC Transferrin Ferritin ALT Alkaline Phosphatase Total Creatine Kinase CK-MB (CK-2) Rel Index Troponin T Albumin LDL Cholesterol Direct PTH Intact Salicylates Acetaminophen Crossmatch 03/19/19 03/19/19 03/19/19 05:22 05:35 08:54 WBC RBC Hgb Hct MCV MCH MCHC RDW Plt Count Lymph % (Auto) [place] % (Auto) Eos % (Auto) Baso % (Auto) Lymph # [place] # Eos # Baso # Seg Neutrophils % Seg Neuts % (Manual) Lymphocytes % (Manual) Eosinophils % (Manual) Seg Neutrophils # Lymphocytes # (Manual) Eosinophils # (Manual) PT INR D-Dimer POC ABG pH POC ABG pCO2 POC ABG pO2 ABG pO2 ABG HCO3 ABG Base Excess ABG Hemoglobin Oxyhemoglobin Sodium Potassium Chloride Carbon Dioxide BUN Creatinine Glucose POC Glucose 167 H Calcium Phosphorus Magnesium Iron TIBC Transferrin Ferritin ALT Alkaline Phosphatase Total Creatine Kinase CK-MB (CK-2) Rel Index Troponin T Albumin LDL Cholesterol Direct PTH Intact Salicylates Acetaminophen Crossmatch See Detail See Detail 03/19/19 03/19/19 03/19/19 12:36 17:02 23:25 WBC RBC Hgb Hct MCV MCH MCHC RDW Plt Count Lymph % (Auto) [place] % (Auto) Eos % (Auto) Baso % (Auto) Lymph # [place] # Eos # Baso # Seg Neutrophils % Seg Neuts % (Manual) Lymphocytes % (Manual) Eosinophils % (Manual) Seg Neutrophils # Lymphocytes # (Manual) Eosinophils # (Manual) PT INR D-Dimer POC ABG pH POC ABG pCO2 POC ABG pO2 ABG pO2 ABG HCO3 ABG Base Excess ABG Hemoglobin Oxyhemoglobin Sodium Potassium Chloride Carbon Dioxide BUN Creatinine Glucose POC Glucose 167 H 135 H 136 H Calcium Phosphorus Magnesium Iron TIBC Transferrin Ferritin ALT Alkaline Phosphatase Total Creatine Kinase CK-MB (CK-2) Rel Index Troponin T Albumin LDL Cholesterol Direct PTH Intact Salicylates Acetaminophen Crossmatch 03/20/19 03/20/19 03/20/19 05:38 08:40 08:40 WBC RBC 2.61 L Hgb 7.1 L Hct 22.0 L MCV MCH 27 L MCHC RDW 19.6 H Plt Count Lymph % (Auto) 8.2 L [place] % (Auto) 8.3 H Eos % (Auto) 5.7 H Baso % (Auto) Lymph # 0.8 L [place] # Eos # 0.5 H Baso # Seg Neutrophils % 77.3 H Seg Neuts % (Manual) Lymphocytes % (Manual) Eosinophils % (Manual) Seg Neutrophils # Lymphocytes # (Manual) Eosinophils # (Manual) PT INR D-Dimer POC ABG pH POC ABG pCO2 POC ABG pO2 ABG pO2 ABG HCO3 ABG Base Excess ABG Hemoglobin Oxyhemoglobin Sodium Potassium Chloride 95.9 L Carbon Dioxide BUN 69 H Creatinine 2.8 H Glucose 115 H POC Glucose 134 H Calcium 10.5 H Phosphorus Magnesium Iron TIBC Transferrin Ferritin ALT Alkaline Phosphatase Total Creatine Kinase CK-MB (CK-2) Rel Index Troponin T Albumin LDL Cholesterol Direct PTH Intact Salicylates Acetaminophen Crossmatch 03/20/19 03/20/19 03/20/19 12:13 18:04 23:49 WBC RBC Hgb Hct MCV MCH MCHC RDW Plt Count Lymph % (Auto) [place] % (Auto) Eos % (Auto) Baso % (Auto) Lymph # [place] # Eos # Baso # Seg Neutrophils % Seg Neuts % (Manual) Lymphocytes % (Manual) Eosinophils % (Manual) Seg Neutrophils # Lymphocytes # (Manual) Eosinophils # (Manual) PT INR D-Dimer POC ABG pH POC ABG pCO2 POC ABG pO2 ABG pO2 ABG HCO3 ABG Base Excess ABG Hemoglobin Oxyhemoglobin Sodium Potassium Chloride Carbon Dioxide BUN Creatinine Glucose POC Glucose 144 H 165 H 172 H Calcium Phosphorus Magnesium Iron TIBC Transferrin Ferritin ALT Alkaline Phosphatase Total Creatine Kinase CK-MB (CK-2) Rel Index Troponin T Albumin LDL Cholesterol Direct PTH Intact Salicylates Acetaminophen Crossmatch 03/21/19 03/21/19 03/21/19 05:00 06:29 06:30 WBC RBC 2.72 L Hgb 7.4 L Hct 22.9 L MCV MCH 27 L MCHC RDW 19.4 H Plt Count Lymph % (Auto) [place] % (Auto) Eos % (Auto) Baso % (Auto) Lymph # [place] # Eos # Baso # Seg Neutrophils % Seg Neuts % (Manual) 81.0 H Lymphocytes % (Manual) 8.0 L Eosinophils % (Manual) 8.0 H Seg Neutrophils # Lymphocytes # (Manual) 0.7 L Eosinophils # (Manual) 0.7 H PT INR D-Dimer POC ABG pH POC ABG pCO2 POC ABG pO2 ABG pO2 ABG HCO3 ABG Base Excess ABG Hemoglobin Oxyhemoglobin Sodium Potassium Chloride Carbon Dioxide 33 H BUN 43 H Creatinine 1.7 H Glucose 145 H POC Glucose 156 H Calcium Phosphorus Magnesium Iron TIBC Transferrin Ferritin ALT Alkaline Phosphatase 212 H Total Creatine Kinase CK-MB (CK-2) Rel Index Troponin T Albumin 2.2 L LDL Cholesterol Direct PTH Intact Salicylates Acetaminophen Crossmatch 03/21/19 03/21/19 03/22/19 12:02 18:07 00:21 WBC RBC Hgb Hct MCV MCH MCHC RDW Plt Count Lymph % (Auto) [place] % (Auto) Eos % (Auto) Baso % (Auto) Lymph # [place] # Eos # Baso # Seg Neutrophils % Seg Neuts % (Manual) Lymphocytes % (Manual) Eosinophils % (Manual) Seg Neutrophils # Lymphocytes # (Manual) Eosinophils # (Manual) PT INR D-Dimer POC ABG pH POC ABG pCO2 POC ABG pO2 ABG pO2 ABG HCO3 ABG Base Excess ABG Hemoglobin Oxyhemoglobin Sodium Potassium Chloride Carbon Dioxide BUN Creatinine Glucose POC Glucose 163 H 144 H 153 H Calcium Phosphorus Magnesium Iron TIBC Transferrin Ferritin ALT Alkaline Phosphatase Total Creatine Kinase CK-MB (CK-2) Rel Index Troponin T Albumin LDL Cholesterol Direct PTH Intact Salicylates Acetaminophen Crossmatch 03/22/19 03/22/19 03/22/19 05:23 05:23 05:31 WBC RBC 2.58 L Hgb 7.1 L Hct 21.8 L MCV MCH 27 L MCHC RDW 19.2 H Plt Count Lymph % (Auto) [place] % (Auto) Eos % (Auto) Baso % (Auto) Lymph # [place] # Eos # Baso # Seg Neutrophils % Seg Neuts % (Manual) Lymphocytes % (Manual) Eosinophils % (Manual) Seg Neutrophils # Lymphocytes # (Manual) Eosinophils # (Manual) PT INR D-Dimer POC ABG pH POC ABG pCO2 POC ABG pO2 ABG pO2 ABG HCO3 ABG Base Excess ABG Hemoglobin Oxyhemoglobin Sodium 147 H Potassium Chloride Carbon Dioxide BUN 68 H Creatinine 2.5 H Glucose POC Glucose 116 H Calcium 10.3 H Phosphorus Magnesium Iron TIBC Transferrin Ferritin ALT Alkaline Phosphatase Total Creatine Kinase CK-MB (CK-2) Rel Index Troponin T Albumin LDL Cholesterol Direct PTH Intact Salicylates Acetaminophen Crossmatch 03/22/19 03/22/19 03/22/19 08:48 12:37 17:35 WBC RBC Hgb Hct MCV MCH MCHC RDW Plt Count Lymph % (Auto) [place] % (Auto) Eos % (Auto) Baso % (Auto) Lymph # [place] # Eos # Baso # Seg Neutrophils % Seg Neuts % (Manual) Lymphocytes % (Manual) Eosinophils % (Manual) Seg Neutrophils # Lymphocytes # (Manual) Eosinophils # (Manual) PT INR D-Dimer POC ABG pH POC ABG pCO2 POC ABG pO2 ABG pO2 ABG HCO3 ABG Base Excess ABG Hemoglobin Oxyhemoglobin Sodium Potassium Chloride Carbon Dioxide BUN Creatinine Glucose POC Glucose 143 H 155 H Calcium Phosphorus Magnesium Iron TIBC Transferrin Ferritin ALT Alkaline Phosphatase Total Creatine Kinase CK-MB (CK-2) Rel Index Troponin T Albumin LDL Cholesterol Direct PTH Intact Salicylates Acetaminophen Crossmatch See Detail 03/23/19 03/23/19 03/23/19 00:07 04:00 04:00 WBC 11.2 H RBC 2.32 L Hgb 6.4 L Hct 19.7 L* MCV MCH MCHC RDW 19.4 H Plt Count Lymph % (Auto) [place] % (Auto) Eos % (Auto) Baso % (Auto) Lymph # [place] # Eos # Baso # Seg Neutrophils % Seg Neuts % (Manual) Lymphocytes % (Manual) Eosinophils % (Manual) Seg Neutrophils # Lymphocytes # (Manual) Eosinophils # (Manual) PT INR D-Dimer POC ABG pH POC ABG pCO2 POC ABG pO2 ABG pO2 ABG HCO3 ABG Base Excess ABG Hemoglobin Oxyhemoglobin Sodium 147 H Potassium 5.2 H Chloride Carbon Dioxide BUN 86 H Creatinine 3.2 H Glucose 128 H POC Glucose 135 H Calcium 10.3 H Phosphorus Magnesium Iron TIBC Transferrin Ferritin ALT Alkaline Phosphatase Total Creatine Kinase CK-MB (CK-2) Rel Index Troponin T Albumin LDL Cholesterol Direct PTH Intact Salicylates Acetaminophen Crossmatch 03/23/19 03/23/19 03/23/19 05:21 11:36 11:36 WBC RBC Hgb 7.9 L Hct 25.0 L MCV MCH MCHC RDW Plt Count Lymph % (Auto) [place] % (Auto) Eos % (Auto) Baso % (Auto) Lymph # [place] # Eos # Baso # Seg Neutrophils % Seg Neuts % (Manual) Lymphocytes % (Manual) Eosinophils % (Manual) Seg Neutrophils # Lymphocytes # (Manual) Eosinophils # (Manual) PT INR D-Dimer POC ABG pH POC ABG pCO2 POC ABG pO2 ABG pO2 ABG HCO3 ABG Base Excess ABG Hemoglobin Oxyhemoglobin Sodium Potassium Chloride Carbon Dioxide BUN Creatinine Glucose POC Glucose 132 H 147 H Calcium Phosphorus Magnesium Iron TIBC Transferrin Ferritin ALT Alkaline Phosphatase Total Creatine Kinase CK-MB (CK-2) Rel Index Troponin T Albumin LDL Cholesterol Direct PTH Intact Salicylates Acetaminophen Crossmatch 03/23/19 03/24/19 03/24/19 17:31 01:22 04:20 WBC 12.2 H RBC 3.05 L Hgb 8.3 L Hct 25.9 L MCV MCH 27 L MCHC RDW 18.7 H Plt Count Lymph % (Auto) [place] % (Auto) Eos % (Auto) Baso % (Auto) Lymph # [place] # Eos # Baso # Seg Neutrophils % Seg Neuts % (Manual) Lymphocytes % (Manual) Eosinophils % (Manual) Seg Neutrophils # Lymphocytes # (Manual) Eosinophils # (Manual) PT INR D-Dimer POC ABG pH POC ABG pCO2 POC ABG pO2 ABG pO2 ABG HCO3 ABG Base Excess ABG Hemoglobin Oxyhemoglobin Sodium Potassium Chloride Carbon Dioxide BUN Creatinine Glucose POC Glucose 182 H 113 H Calcium Phosphorus Magnesium Iron TIBC Transferrin Ferritin ALT Alkaline Phosphatase Total Creatine Kinase CK-MB (CK-2) Rel Index Troponin T Albumin LDL Cholesterol Direct PTH Intact Salicylates Acetaminophen Crossmatch 03/24/19 03/24/19 03/24/19 04:20 11:59 18:14 WBC RBC Hgb Hct MCV MCH MCHC RDW Plt Count Lymph % (Auto) [place] % (Auto) Eos % (Auto) Baso % (Auto) Lymph # [place] # Eos # Baso # Seg Neutrophils % Seg Neuts % (Manual) Lymphocytes % (Manual) Eosinophils % (Manual) Seg Neutrophils # Lymphocytes # (Manual) Eosinophils # (Manual) PT INR D-Dimer POC ABG pH POC ABG pCO2 POC ABG pO2 ABG pO2 ABG HCO3 ABG Base Excess ABG Hemoglobin Oxyhemoglobin Sodium Potassium Chloride 94.8 L Carbon Dioxide 32 H BUN 53 H Creatinine 2.3 H Glucose POC Glucose 163 H 134 H Calcium Phosphorus Magnesium Iron TIBC Transferrin Ferritin ALT Alkaline Phosphatase Total Creatine Kinase CK-MB (CK-2) Rel Index Troponin T Albumin LDL Cholesterol Direct PTH Intact Salicylates Acetaminophen Crossmatch 03/24/19 03/25/19 03/25/19 23:15 05:52 12:02 WBC RBC Hgb Hct MCV MCH MCHC RDW Plt Count Lymph % (Auto) [place] % (Auto) Eos % (Auto) Baso % (Auto) Lymph # [place] # Eos # Baso # Seg Neutrophils % Seg Neuts % (Manual) Lymphocytes % (Manual) Eosinophils % (Manual) Seg Neutrophils # Lymphocytes # (Manual) Eosinophils # (Manual) PT INR D-Dimer POC ABG pH POC ABG pCO2 POC ABG pO2 ABG pO2 ABG HCO3 ABG Base Excess ABG Hemoglobin Oxyhemoglobin Sodium Potassium Chloride Carbon Dioxide BUN Creatinine Glucose POC Glucose 129 H 123 H 125 H Calcium Phosphorus Magnesium Iron TIBC Transferrin Ferritin ALT Alkaline Phosphatase Total Creatine Kinase CK-MB (CK-2) Rel Index Troponin T Albumin LDL Cholesterol Direct PTH Intact Salicylates Acetaminophen Crossmatch 03/25/19 03/26/19 03/26/19 17:27 00:30 05:35 WBC RBC 3.01 L Hgb 8.1 L Hct 25.7 L MCV MCH 27 L MCHC RDW 19.2 H Plt Count Lymph % (Auto) 11.4 L [place] % (Auto) Eos % (Auto) 8.0 H Baso % (Auto) Lymph # 1.0 L [place] # Eos # 0.7 H Baso # Seg Neutrophils % 73.9 H Seg Neuts % (Manual) Lymphocytes % (Manual) Eosinophils % (Manual) Seg Neutrophils # Lymphocytes # (Manual) Eosinophils # (Manual) PT INR D-Dimer POC ABG pH POC ABG pCO2 POC ABG pO2 ABG pO2 ABG HCO3 ABG Base Excess ABG Hemoglobin Oxyhemoglobin Sodium Potassium Chloride Carbon Dioxide BUN Creatinine Glucose POC Glucose 130 H 129 H Calcium Phosphorus Magnesium Iron TIBC Transferrin Ferritin ALT Alkaline Phosphatase Total Creatine Kinase CK-MB (CK-2) Rel Index Troponin T Albumin LDL Cholesterol Direct PTH Intact Salicylates Acetaminophen Crossmatch 03/26/19 03/26/19 03/26/19 05:35 05:45 12:16 WBC RBC Hgb Hct MCV MCH MCHC RDW Plt Count Lymph % (Auto) [place] % (Auto) Eos % (Auto) Baso % (Auto) Lymph # [place] # Eos # Baso # Seg Neutrophils % Seg Neuts % (Manual) Lymphocytes % (Manual) Eosinophils % (Manual) Seg Neutrophils # Lymphocytes # (Manual) Eosinophils # (Manual) PT INR D-Dimer POC ABG pH POC ABG pCO2 POC ABG pO2 ABG pO2 ABG HCO3 ABG Base Excess ABG Hemoglobin Oxyhemoglobin Sodium Potassium Chloride 94.9 L Carbon Dioxide 31 H BUN 44 H Creatinine 2.0 H Glucose POC Glucose 118 H 107 H Calcium Phosphorus Magnesium Iron TIBC Transferrin Ferritin ALT Alkaline Phosphatase Total Creatine Kinase CK-MB (CK-2) Rel Index Troponin T Albumin LDL Cholesterol Direct PTH Intact Salicylates Acetaminophen Crossmatch 03/26/19 03/27/19 03/27/19 17:56 00:36 05:37 WBC RBC Hgb Hct MCV MCH MCHC RDW Plt Count Lymph % (Auto) [place] % (Auto) Eos % (Auto) Baso % (Auto) Lymph # [place] # Eos # Baso # Seg Neutrophils % Seg Neuts % (Manual) Lymphocytes % (Manual) Eosinophils % (Manual) Seg Neutrophils # Lymphocytes # (Manual) Eosinophils # (Manual) PT INR D-Dimer POC ABG pH POC ABG pCO2 POC ABG pO2 ABG pO2 ABG HCO3 ABG Base Excess ABG Hemoglobin Oxyhemoglobin Sodium Potassium Chloride Carbon Dioxide BUN Creatinine Glucose POC Glucose 107 H 110 H 122 H Calcium Phosphorus Magnesium Iron TIBC Transferrin Ferritin ALT Alkaline Phosphatase Total Creatine Kinase CK-MB (CK-2) Rel Index Troponin T Albumin LDL Cholesterol Direct PTH Intact Salicylates Acetaminophen Crossmatch 03/27/19 03/27/19 03/28/19 11:22 18:00 05:17 WBC RBC Hgb Hct MCV MCH MCHC RDW Plt Count Lymph % (Auto) [place] % (Auto) Eos % (Auto) Baso % (Auto) Lymph # [place] # Eos # Baso # Seg Neutrophils % Seg Neuts % (Manual) Lymphocytes % (Manual) Eosinophils % (Manual) Seg Neutrophils # Lymphocytes # (Manual) Eosinophils # (Manual) PT INR D-Dimer POC ABG pH POC ABG pCO2 POC ABG pO2 ABG pO2 ABG HCO3 ABG Base Excess ABG Hemoglobin Oxyhemoglobin Sodium Potassium Chloride Carbon Dioxide BUN Creatinine Glucose POC Glucose 120 H 111 H 107 H Calcium Phosphorus Magnesium Iron TIBC Transferrin Ferritin ALT Alkaline Phosphatase Total Creatine Kinase CK-MB (CK-2) Rel Index Troponin T Albumin LDL Cholesterol Direct PTH Intact Salicylates Acetaminophen Crossmatch 03/28/19 03/28/19 03/29/19 12:27 18:08 05:47 WBC RBC Hgb Hct MCV MCH MCHC RDW Plt Count Lymph % (Auto) [place] % (Auto) Eos % (Auto) Baso % (Auto) Lymph # [place] # Eos # Baso # Seg Neutrophils % Seg Neuts % (Manual) Lymphocytes % (Manual) Eosinophils % (Manual) Seg Neutrophils # Lymphocytes # (Manual) Eosinophils # (Manual) PT INR D-Dimer POC ABG pH POC ABG pCO2 POC ABG pO2 ABG pO2 ABG HCO3 ABG Base Excess ABG Hemoglobin Oxyhemoglobin Sodium Potassium Chloride Carbon Dioxide BUN Creatinine Glucose POC Glucose 114 H 121 H 112 H Calcium Phosphorus Magnesium Iron TIBC Transferrin Ferritin ALT Alkaline Phosphatase Total Creatine Kinase CK-MB (CK-2) Rel Index Troponin T Albumin LDL Cholesterol Direct PTH Intact Salicylates Acetaminophen Crossmatch 03/29/19 03/29/19 03/30/19 12:14 18:08 00:31 WBC RBC Hgb Hct MCV MCH MCHC RDW Plt Count Lymph % (Auto) [place] % (Auto) Eos % (Auto) Baso % (Auto) Lymph # [place] # Eos # Baso # Seg Neutrophils % Seg Neuts % (Manual) Lymphocytes % (Manual) Eosinophils % (Manual) Seg Neutrophils # Lymphocytes # (Manual) Eosinophils # (Manual) PT INR D-Dimer POC ABG pH POC ABG pCO2 POC ABG pO2 ABG pO2 ABG HCO3 ABG Base Excess ABG Hemoglobin Oxyhemoglobin Sodium Potassium Chloride Carbon Dioxide BUN Creatinine Glucose POC Glucose 117 H 140 H 114 H Calcium Phosphorus Magnesium Iron TIBC Transferrin Ferritin ALT Alkaline Phosphatase Total Creatine Kinase CK-MB (CK-2) Rel Index Troponin T Albumin LDL Cholesterol Direct PTH Intact Salicylates Acetaminophen Crossmatch 03/30/19 03/30/19 03/30/19 10:13 10:13 23:53 WBC RBC 2.81 L Hgb 7.7 L Hct 24.3 L MCV MCH 27 L MCHC RDW 19.0 H Plt Count Lymph % (Auto) 12.2 L [place] % (Auto) Eos % (Auto) 7.9 H Baso % (Auto) Lymph # 1.0 L [place] # Eos # 0.6 H Baso # Seg Neutrophils % 72.3 H Seg Neuts % (Manual) Lymphocytes % (Manual) Eosinophils % (Manual) Seg Neutrophils # Lymphocytes # (Manual) Eosinophils # (Manual) PT INR D-Dimer POC ABG pH POC ABG pCO2 POC ABG pO2 ABG pO2 ABG HCO3 ABG Base Excess ABG Hemoglobin Oxyhemoglobin Sodium Potassium 5.1 H Chloride 96.5 L Carbon Dioxide BUN 73 H Creatinine 3.9 H D Glucose POC Glucose 114 H Calcium 10.3 H Phosphorus 6.30 H Magnesium 2.70 H Iron TIBC Transferrin Ferritin ALT Alkaline Phosphatase 185 H Total Creatine Kinase CK-MB (CK-2) Rel Index Troponin T Albumin 2.6 L LDL Cholesterol Direct PTH Intact Salicylates Acetaminophen Crossmatch 03/31/19 03/31/19 03/31/19 05:45 10:26 10:26 WBC RBC 3.01 L Hgb 8.2 L Hct 26.4 L MCV MCH 27 L MCHC 31 L RDW 20.3 H Plt Count Lymph % (Auto) 13.3 L [place] % (Auto) Eos % (Auto) 7.2 H Baso % (Auto) Lymph # 1.1 L [place] # Eos # 0.6 H Baso # Seg Neutrophils % 72.1 H Seg Neuts % (Manual) Lymphocytes % (Manual) Eosinophils % (Manual) Seg Neutrophils # Lymphocytes # (Manual) Eosinophils # (Manual) PT INR D-Dimer POC ABG pH POC ABG pCO2 POC ABG pO2 ABG pO2 ABG HCO3 ABG Base Excess ABG Hemoglobin Oxyhemoglobin Sodium Potassium Chloride 96.9 L Carbon Dioxide 33 H BUN 37 H Creatinine 2.4 H Glucose POC Glucose 108 H Calcium 10.3 H Phosphorus Magnesium Iron TIBC Transferrin Ferritin ALT Alkaline Phosphatase Total Creatine Kinase CK-MB (CK-2) Rel Index Troponin T Albumin LDL Cholesterol Direct PTH Intact Salicylates Acetaminophen Crossmatch 03/31/19 04/01/19 04/01/19 12:38 05:48 12:06 WBC RBC Hgb Hct MCV MCH MCHC RDW Plt Count Lymph % (Auto) [place] % (Auto) Eos % (Auto) Baso % (Auto) Lymph # [place] # Eos # Baso # Seg Neutrophils % Seg Neuts % (Manual) Lymphocytes % (Manual) Eosinophils % (Manual) Seg Neutrophils # Lymphocytes # (Manual) Eosinophils # (Manual) PT INR D-Dimer POC ABG pH POC ABG pCO2 POC ABG pO2 ABG pO2 ABG HCO3 ABG Base Excess ABG Hemoglobin Oxyhemoglobin Sodium Potassium Chloride Carbon Dioxide BUN Creatinine Glucose POC Glucose 108 H 114 H 111 H Calcium Phosphorus Magnesium Iron TIBC Transferrin Ferritin ALT Alkaline Phosphatase Total Creatine Kinase CK-MB (CK-2) Rel Index Troponin T Albumin LDL Cholesterol Direct PTH Intact Salicylates Acetaminophen Crossmatch 04/01/19 04/02/19 04/04/19 18:24 00:36 23:55 WBC RBC Hgb Hct MCV MCH MCHC RDW Plt Count Lymph % (Auto) [place] % (Auto) Eos % (Auto) Baso % (Auto) Lymph # [place] # Eos # Baso # Seg Neutrophils % Seg Neuts % (Manual) Lymphocytes % (Manual) Eosinophils % (Manual) Seg Neutrophils # Lymphocytes # (Manual) Eosinophils # (Manual) PT INR D-Dimer POC ABG pH POC ABG pCO2 POC ABG pO2 ABG pO2 ABG HCO3 ABG Base Excess ABG Hemoglobin Oxyhemoglobin Sodium Potassium Chloride Carbon Dioxide BUN Creatinine Glucose POC Glucose 113 H 117 H 109 H Calcium Phosphorus Magnesium Iron TIBC Transferrin Ferritin ALT Alkaline Phosphatase Total Creatine Kinase CK-MB (CK-2) Rel Index Troponin T Albumin LDL Cholesterol Direct PTH Intact Salicylates Acetaminophen Crossmatch 04/06/19 04/06/19 04/06/19 00:11 06:02 23:30 WBC RBC Hgb Hct MCV MCH MCHC RDW Plt Count Lymph % (Auto) [place] % (Auto) Eos % (Auto) Baso % (Auto) Lymph # [place] # Eos # Baso # Seg Neutrophils % Seg Neuts % (Manual) Lymphocytes % (Manual) Eosinophils % (Manual) Seg Neutrophils # Lymphocytes # (Manual) Eosinophils # (Manual) PT INR D-Dimer POC ABG pH POC ABG pCO2 POC ABG pO2 ABG pO2 ABG HCO3 ABG Base Excess ABG Hemoglobin Oxyhemoglobin Sodium Potassium Chloride Carbon Dioxide BUN Creatinine Glucose POC Glucose 116 H 112 H 112 H Calcium Phosphorus Magnesium Iron TIBC Transferrin Ferritin ALT Alkaline Phosphatase Total Creatine Kinase CK-MB (CK-2) Rel Index Troponin T Albumin LDL Cholesterol Direct PTH Intact Salicylates Acetaminophen Crossmatch 04/08/19 04/08/19 04/08/19 02:23 06:19 13:01 WBC RBC Hgb Hct MCV MCH MCHC RDW Plt Count Lymph % (Auto) [place] % (Auto) Eos % (Auto) Baso % (Auto) Lymph # [place] # Eos # Baso # Seg Neutrophils % Seg Neuts % (Manual) Lymphocytes % (Manual) Eosinophils % (Manual) Seg Neutrophils # Lymphocytes # (Manual) Eosinophils # (Manual) PT INR D-Dimer POC ABG pH POC ABG pCO2 POC ABG pO2 ABG pO2 ABG HCO3 ABG Base Excess ABG Hemoglobin Oxyhemoglobin Sodium Potassium Chloride Carbon Dioxide BUN Creatinine Glucose POC Glucose 144 H 126 H 118 H Calcium Phosphorus Magnesium Iron TIBC Transferrin Ferritin ALT Alkaline Phosphatase Total Creatine Kinase CK-MB (CK-2) Rel Index Troponin T Albumin LDL Cholesterol Direct PTH Intact Salicylates Acetaminophen Crossmatch 04/08/19 04/09/19 04/10/19 23:28 05:52 06:34 WBC RBC Hgb Hct MCV MCH MCHC RDW Plt Count Lymph % (Auto) [place] % (Auto) Eos % (Auto) Baso % (Auto) Lymph # [place] # Eos # Baso # Seg Neutrophils % Seg Neuts % (Manual) Lymphocytes % (Manual) Eosinophils % (Manual) Seg Neutrophils # Lymphocytes # (Manual) Eosinophils # (Manual) PT INR D-Dimer POC ABG pH POC ABG pCO2 POC ABG pO2 ABG pO2 ABG HCO3 ABG Base Excess ABG Hemoglobin Oxyhemoglobin Sodium Potassium Chloride Carbon Dioxide BUN Creatinine Glucose POC Glucose 119 H 116 H 114 H Calcium Phosphorus Magnesium Iron TIBC Transferrin Ferritin ALT Alkaline Phosphatase Total Creatine Kinase CK-MB (CK-2) Rel Index Troponin T Albumin LDL Cholesterol Direct PTH Intact Salicylates Acetaminophen Crossmatch 04/10/19 04/10/19 04/11/19 12:34 18:59 00:36 WBC RBC Hgb Hct MCV MCH MCHC RDW Plt Count Lymph % (Auto) [place] % (Auto) Eos % (Auto) Baso % (Auto) Lymph # [place] # Eos # Baso # Seg Neutrophils % Seg Neuts % (Manual) Lymphocytes % (Manual) Eosinophils % (Manual) Seg Neutrophils # Lymphocytes # (Manual) Eosinophils # (Manual) PT INR D-Dimer POC ABG pH POC ABG pCO2 POC ABG pO2 ABG pO2 ABG HCO3 ABG Base Excess ABG Hemoglobin Oxyhemoglobin Sodium Potassium Chloride Carbon Dioxide BUN Creatinine Glucose POC Glucose 112 H 109 H 124 H Calcium Phosphorus Magnesium Iron TIBC Transferrin Ferritin ALT Alkaline Phosphatase Total Creatine Kinase CK-MB (CK-2) Rel Index Troponin T Albumin LDL Cholesterol Direct PTH Intact Salicylates Acetaminophen Crossmatch 04/11/19 04/11/19 04/12/19 08:01 17:25 02:18 WBC RBC Hgb Hct MCV MCH MCHC RDW Plt Count Lymph % (Auto) [place] % (Auto) Eos % (Auto) Baso % (Auto) Lymph # [place] # Eos # Baso # Seg Neutrophils % Seg Neuts % (Manual) Lymphocytes % (Manual) Eosinophils % (Manual) Seg Neutrophils # Lymphocytes # (Manual) Eosinophils # (Manual) PT INR D-Dimer POC ABG pH POC ABG pCO2 POC ABG pO2 ABG pO2 ABG HCO3 ABG Base Excess ABG Hemoglobin Oxyhemoglobin Sodium Potassium Chloride Carbon Dioxide BUN Creatinine Glucose POC Glucose 118 H 106 H 125 H Calcium Phosphorus Magnesium Iron TIBC Transferrin Ferritin ALT Alkaline Phosphatase Total Creatine Kinase CK-MB (CK-2) Rel Index Troponin T Albumin LDL Cholesterol Direct PTH Intact Salicylates Acetaminophen Crossmatch 04/12/19 04/12/19 04/12/19 06:24 12:22 17:13 WBC RBC Hgb Hct MCV MCH MCHC RDW Plt Count Lymph % (Auto) [place] % (Auto) Eos % (Auto) Baso % (Auto) Lymph # [place] # Eos # Baso # Seg Neutrophils % Seg Neuts % (Manual) Lymphocytes % (Manual) Eosinophils % (Manual) Seg Neutrophils # Lymphocytes # (Manual) Eosinophils # (Manual) PT INR D-Dimer POC ABG pH POC ABG pCO2 POC ABG pO2 ABG pO2 ABG HCO3 ABG Base Excess ABG Hemoglobin Oxyhemoglobin Sodium Potassium Chloride Carbon Dioxide BUN Creatinine Glucose POC Glucose 128 H 114 H 110 H Calcium Phosphorus Magnesium Iron TIBC Transferrin Ferritin ALT Alkaline Phosphatase Total Creatine Kinase CK-MB (CK-2) Rel Index Troponin T Albumin LDL Cholesterol Direct PTH Intact Salicylates Acetaminophen Crossmatch 04/13/19 04/13/19 04/13/19 06:59 07:31 07:31 WBC RBC 3.34 L Hgb 8.9 L Hct 28.6 L MCV MCH 27 L MCHC 31 L RDW 19.6 H Plt Count Lymph % (Auto) [place] % (Auto) Eos % (Auto) Baso % (Auto) Lymph # [place] # Eos # Baso # Seg Neutrophils % Seg Neuts % (Manual) Lymphocytes % (Manual) Eosinophils % (Manual) Seg Neutrophils # Lymphocytes # (Manual) Eosinophils # (Manual) PT INR D-Dimer POC ABG pH POC ABG pCO2 POC ABG pO2 ABG pO2 ABG HCO3 ABG Base Excess ABG Hemoglobin Oxyhemoglobin Sodium Potassium Chloride 96.4 L Carbon Dioxide 33 H BUN 66 H Creatinine 4.5 H Glucose 103 H POC Glucose 107 H Calcium Phosphorus Magnesium Iron TIBC Transferrin Ferritin ALT Alkaline Phosphatase Total Creatine Kinase CK-MB (CK-2) Rel Index Troponin T Albumin LDL Cholesterol Direct PTH Intact Salicylates Acetaminophen Crossmatch 04/13/19 04/14/19 04/14/19 23:43 05:50 13:07 WBC RBC Hgb Hct MCV MCH MCHC RDW Plt Count Lymph % (Auto) [place] % (Auto) Eos % (Auto) Baso % (Auto) Lymph # [place] # Eos # Baso # Seg Neutrophils % Seg Neuts % (Manual) Lymphocytes % (Manual) Eosinophils % (Manual) Seg Neutrophils # Lymphocytes # (Manual) Eosinophils # (Manual) PT INR D-Dimer POC ABG pH POC ABG pCO2 POC ABG pO2 ABG pO2 ABG HCO3 ABG Base Excess ABG Hemoglobin Oxyhemoglobin Sodium Potassium Chloride Carbon Dioxide BUN Creatinine Glucose POC Glucose 119 H 112 H 112 H Calcium Phosphorus Magnesium Iron TIBC Transferrin Ferritin ALT Alkaline Phosphatase Total Creatine Kinase CK-MB (CK-2) Rel Index Troponin T Albumin LDL Cholesterol Direct PTH Intact Salicylates Acetaminophen Crossmatch 04/14/19 04/15/19 04/15/19 18:35 01:18 05:17 WBC RBC Hgb Hct MCV MCH MCHC RDW Plt Count Lymph % (Auto) [place] % (Auto) Eos % (Auto) Baso % (Auto) Lymph # [place] # Eos # Baso # Seg Neutrophils % Seg Neuts % (Manual) Lymphocytes % (Manual) Eosinophils % (Manual) Seg Neutrophils # Lymphocytes # (Manual) Eosinophils # (Manual) PT INR D-Dimer POC ABG pH POC ABG pCO2 POC ABG pO2 ABG pO2 ABG HCO3 ABG Base Excess ABG Hemoglobin Oxyhemoglobin Sodium Potassium Chloride Carbon Dioxide BUN Creatinine Glucose POC Glucose 114 H 114 H 114 H Calcium Phosphorus Magnesium Iron TIBC Transferrin Ferritin ALT Alkaline Phosphatase Total Creatine Kinase CK-MB (CK-2) Rel Index Troponin T Albumin LDL Cholesterol Direct PTH Intact Salicylates Acetaminophen Crossmatch 04/15/19 04/15/19 04/16/19 11:50 23:39 05:41 WBC RBC Hgb Hct MCV MCH MCHC RDW Plt Count Lymph % (Auto) [place] % (Auto) Eos % (Auto) Baso % (Auto) Lymph # [place] # Eos # Baso # Seg Neutrophils % Seg Neuts % (Manual) Lymphocytes % (Manual) Eosinophils % (Manual) Seg Neutrophils # Lymphocytes # (Manual) Eosinophils # (Manual) PT INR D-Dimer POC ABG pH POC ABG pCO2 POC ABG pO2 ABG pO2 ABG HCO3 ABG Base Excess ABG Hemoglobin Oxyhemoglobin Sodium Potassium Chloride Carbon Dioxide BUN Creatinine Glucose POC Glucose 109 H 115 H 125 H Calcium Phosphorus Magnesium Iron TIBC Transferrin Ferritin ALT Alkaline Phosphatase Total Creatine Kinase CK-MB (CK-2) Rel Index Troponin T Albumin LDL Cholesterol Direct PTH Intact Salicylates Acetaminophen Crossmatch 04/16/19 04/17/19 04/17/19 12:53 01:00 12:38 WBC RBC Hgb Hct MCV MCH MCHC RDW Plt Count Lymph % (Auto) [place] % (Auto) Eos % (Auto) Baso % (Auto) Lymph # [place] # Eos # Baso # Seg Neutrophils % Seg Neuts % (Manual) Lymphocytes % (Manual) Eosinophils % (Manual) Seg Neutrophils # Lymphocytes # (Manual) Eosinophils # (Manual) PT INR D-Dimer POC ABG pH POC ABG pCO2 POC ABG pO2 ABG pO2 ABG HCO3 ABG Base Excess ABG Hemoglobin Oxyhemoglobin Sodium Potassium Chloride Carbon Dioxide BUN Creatinine Glucose POC Glucose 121 H 127 H 159 H Calcium Phosphorus Magnesium Iron TIBC Transferrin Ferritin ALT Alkaline Phosphatase Total Creatine Kinase CK-MB (CK-2) Rel Index Troponin T Albumin LDL Cholesterol Direct PTH Intact Salicylates Acetaminophen Crossmatch 04/17/19 04/17/19 04/18/19 18:27 23:36 07:19 WBC RBC 3.49 L Hgb 9.0 L Hct 29.9 L MCV MCH 26 L MCHC 30 L RDW 20.0 H Plt Count Lymph % (Auto) [place] % (Auto) Eos % (Auto) Baso % (Auto) Lymph # [place] # Eos # Baso # Seg Neutrophils % Seg Neuts % (Manual) Lymphocytes % (Manual) Eosinophils % (Manual) Seg Neutrophils # Lymphocytes # (Manual) Eosinophils # (Manual) PT INR D-Dimer POC ABG pH POC ABG pCO2 POC ABG pO2 ABG pO2 ABG HCO3 ABG Base Excess ABG Hemoglobin Oxyhemoglobin Sodium Potassium Chloride Carbon Dioxide BUN Creatinine Glucose POC Glucose 109 H 134 H Calcium Phosphorus Magnesium Iron TIBC Transferrin Ferritin ALT Alkaline Phosphatase Total Creatine Kinase CK-MB (CK-2) Rel Index Troponin T Albumin LDL Cholesterol Direct PTH Intact Salicylates Acetaminophen Crossmatch 04/18/19 04/18/19 04/18/19 07:19 12:16 17:09 WBC RBC Hgb Hct MCV MCH MCHC RDW Plt Count Lymph % (Auto) [place] % (Auto) Eos % (Auto) Baso % (Auto) Lymph # [place] # Eos # Baso # Seg Neutrophils % Seg Neuts % (Manual) Lymphocytes % (Manual) Eosinophils % (Manual) Seg Neutrophils # Lymphocytes # (Manual) Eosinophils # (Manual) PT INR D-Dimer POC ABG pH POC ABG pCO2 POC ABG pO2 ABG pO2 ABG HCO3 ABG Base Excess ABG Hemoglobin Oxyhemoglobin Sodium Potassium Chloride Carbon Dioxide BUN 41 H Creatinine 2.9 H Glucose 122 H POC Glucose 125 H 131 H Calcium Phosphorus Magnesium Iron TIBC Transferrin Ferritin ALT Alkaline Phosphatase Total Creatine Kinase CK-MB (CK-2) Rel Index Troponin T Albumin LDL Cholesterol Direct PTH Intact Salicylates Acetaminophen Crossmatch 04/18/19 04/19/19 04/19/19 23:57 05:55 11:35 WBC RBC Hgb Hct MCV MCH MCHC RDW Plt Count Lymph % (Auto) [place] % (Auto) Eos % (Auto) Baso % (Auto) Lymph # [place] # Eos # Baso # Seg Neutrophils % Seg Neuts % (Manual) Lymphocytes % (Manual) Eosinophils % (Manual) Seg Neutrophils # Lymphocytes # (Manual) Eosinophils # (Manual) PT INR D-Dimer POC ABG pH POC ABG pCO2 POC ABG pO2 ABG pO2 ABG HCO3 ABG Base Excess ABG Hemoglobin Oxyhemoglobin Sodium Potassium Chloride Carbon Dioxide BUN Creatinine Glucose POC Glucose 159 H 144 H 177 H Calcium Phosphorus Magnesium Iron TIBC Transferrin Ferritin ALT Alkaline Phosphatase Total Creatine Kinase CK-MB (CK-2) Rel Index Troponin T Albumin LDL Cholesterol Direct PTH Intact Salicylates Acetaminophen Crossmatch 04/19/19 04/20/19 04/20/19 16:36 02:05 06:28 WBC RBC Hgb Hct MCV MCH MCHC RDW Plt Count Lymph % (Auto) [place] % (Auto) Eos % (Auto) Baso % (Auto) Lymph # [place] # Eos # Baso # Seg Neutrophils % Seg Neuts % (Manual) Lymphocytes % (Manual) Eosinophils % (Manual) Seg Neutrophils # Lymphocytes # (Manual) Eosinophils # (Manual) PT INR D-Dimer POC ABG pH POC ABG pCO2 POC ABG pO2 ABG pO2 ABG HCO3 ABG Base Excess ABG Hemoglobin Oxyhemoglobin Sodium Potassium Chloride Carbon Dioxide BUN Creatinine Glucose POC Glucose 134 H 142 H 132 H Calcium Phosphorus Magnesium Iron TIBC Transferrin Ferritin ALT Alkaline Phosphatase Total Creatine Kinase CK-MB (CK-2) Rel Index Troponin T Albumin LDL Cholesterol Direct PTH Intact Salicylates Acetaminophen Crossmatch 04/20/19 04/20/19 04/21/19 12:37 23:34 05:59 WBC RBC Hgb Hct MCV MCH MCHC RDW Plt Count Lymph % (Auto) [place] % (Auto) Eos % (Auto) Baso % (Auto) Lymph # [place] # Eos # Baso # Seg Neutrophils % Seg Neuts % (Manual) Lymphocytes % (Manual) Eosinophils % (Manual) Seg Neutrophils # Lymphocytes # (Manual) Eosinophils # (Manual) PT INR D-Dimer POC ABG pH POC ABG pCO2 POC ABG pO2 ABG pO2 ABG HCO3 ABG Base Excess ABG Hemoglobin Oxyhemoglobin Sodium Potassium Chloride Carbon Dioxide BUN Creatinine Glucose POC Glucose 163 H 166 H 140 H Calcium Phosphorus Magnesium Iron TIBC Transferrin Ferritin ALT Alkaline Phosphatase Total Creatine Kinase CK-MB (CK-2) Rel Index Troponin T Albumin LDL Cholesterol Direct PTH Intact Salicylates Acetaminophen Crossmatch 04/21/19 04/21/19 04/21/19 12:07 17:22 23:43 WBC RBC Hgb Hct MCV MCH MCHC RDW Plt Count Lymph % (Auto) [place] % (Auto) Eos % (Auto) Baso % (Auto) Lymph # [place] # Eos # Baso # Seg Neutrophils % Seg Neuts % (Manual) Lymphocytes % (Manual) Eosinophils % (Manual) Seg Neutrophils # Lymphocytes # (Manual) Eosinophils # (Manual) PT INR D-Dimer POC ABG pH POC ABG pCO2 POC ABG pO2 ABG pO2 ABG HCO3 ABG Base Excess ABG Hemoglobin Oxyhemoglobin Sodium Potassium Chloride Carbon Dioxide BUN Creatinine Glucose POC Glucose 135 H 141 H 138 H Calcium Phosphorus Magnesium Iron TIBC Transferrin Ferritin ALT Alkaline Phosphatase Total Creatine Kinase CK-MB (CK-2) Rel Index Troponin T Albumin LDL Cholesterol Direct PTH Intact Salicylates Acetaminophen Crossmatch 04/22/19 04/22/19 04/22/19 05:12 18:24 23:49 WBC RBC Hgb Hct MCV MCH MCHC RDW Plt Count Lymph % (Auto) [place] % (Auto) Eos % (Auto) Baso % (Auto) Lymph # [place] # Eos # Baso # Seg Neutrophils % Seg Neuts % (Manual) Lymphocytes % (Manual) Eosinophils % (Manual) Seg Neutrophils # Lymphocytes # (Manual) Eosinophils # (Manual) PT INR D-Dimer POC ABG pH POC ABG pCO2 POC ABG pO2 ABG pO2 ABG HCO3 ABG Base Excess ABG Hemoglobin Oxyhemoglobin Sodium Potassium Chloride Carbon Dioxide BUN Creatinine Glucose POC Glucose 141 H 137 H 142 H Calcium Phosphorus Magnesium Iron TIBC Transferrin Ferritin ALT Alkaline Phosphatase Total Creatine Kinase CK-MB (CK-2) Rel Index Troponin T Albumin LDL Cholesterol Direct PTH Intact Salicylates Acetaminophen Crossmatch 04/23/19 04/23/19 04/23/19 05:53 08:13 11:58 WBC RBC Hgb Hct MCV MCH MCHC RDW Plt Count Lymph % (Auto) [place] % (Auto) Eos % (Auto) Baso % (Auto) Lymph # [place] # Eos # Baso # Seg Neutrophils % Seg Neuts % (Manual) Lymphocytes % (Manual) Eosinophils % (Manual) Seg Neutrophils # Lymphocytes # (Manual) Eosinophils # (Manual) PT INR D-Dimer POC ABG pH POC ABG pCO2 POC ABG pO2 ABG pO2 ABG HCO3 ABG Base Excess ABG Hemoglobin Oxyhemoglobin Sodium Potassium Chloride Carbon Dioxide BUN Creatinine Glucose POC Glucose 132 H 154 H 165 H Calcium Phosphorus Magnesium Iron TIBC Transferrin Ferritin ALT Alkaline Phosphatase Total Creatine Kinase CK-MB (CK-2) Rel Index Troponin T Albumin LDL Cholesterol Direct PTH Intact Salicylates Acetaminophen Crossmatch 04/23/19 04/24/19 04/24/19 16:28 00:28 07:00 WBC RBC Hgb Hct MCV MCH MCHC RDW Plt Count Lymph % (Auto) [place] % (Auto) Eos % (Auto) Baso % (Auto) Lymph # [place] # Eos # Baso # Seg Neutrophils % Seg Neuts % (Manual) Lymphocytes % (Manual) Eosinophils % (Manual) Seg Neutrophils # Lymphocytes # (Manual) Eosinophils # (Manual) PT INR D-Dimer POC ABG pH POC ABG pCO2 POC ABG pO2 ABG pO2 ABG HCO3 ABG Base Excess ABG Hemoglobin Oxyhemoglobin Sodium Potassium Chloride Carbon Dioxide BUN Creatinine Glucose POC Glucose 136 H 140 H 141 H Calcium Phosphorus Magnesium Iron TIBC Transferrin Ferritin ALT Alkaline Phosphatase Total Creatine Kinase CK-MB (CK-2) Rel Index Troponin T Albumin LDL Cholesterol Direct PTH Intact Salicylates Acetaminophen Crossmatch 04/24/19 04/24/19 04/25/19 12:38 18:57 00:38 WBC RBC Hgb Hct MCV MCH MCHC RDW Plt Count Lymph % (Auto) [place] % (Auto) Eos % (Auto) Baso % (Auto) Lymph # [place] # Eos # Baso # Seg Neutrophils % Seg Neuts % (Manual) Lymphocytes % (Manual) Eosinophils % (Manual) Seg Neutrophils # Lymphocytes # (Manual) Eosinophils # (Manual) PT INR D-Dimer POC ABG pH POC ABG pCO2 POC ABG pO2 ABG pO2 ABG HCO3 ABG Base Excess ABG Hemoglobin Oxyhemoglobin Sodium Potassium Chloride Carbon Dioxide BUN Creatinine Glucose POC Glucose 152 H 166 H 128 H Calcium Phosphorus Magnesium Iron TIBC Transferrin Ferritin ALT Alkaline Phosphatase Total Creatine Kinase CK-MB (CK-2) Rel Index Troponin T Albumin LDL Cholesterol Direct PTH Intact Salicylates Acetaminophen Crossmatch 04/25/19 04/25/19 04/25/19 05:44 13:43 18:34 WBC RBC Hgb Hct MCV MCH MCHC RDW Plt Count Lymph % (Auto) [place] % (Auto) Eos % (Auto) Baso % (Auto) Lymph # [place] # Eos # Baso # Seg Neutrophils % Seg Neuts % (Manual) Lymphocytes % (Manual) Eosinophils % (Manual) Seg Neutrophils # Lymphocytes # (Manual) Eosinophils # (Manual) PT INR D-Dimer POC ABG pH POC ABG pCO2 POC ABG pO2 ABG pO2 ABG HCO3 ABG Base Excess ABG Hemoglobin Oxyhemoglobin Sodium Potassium Chloride Carbon Dioxide BUN Creatinine Glucose POC Glucose 153 H 186 H 124 H Calcium Phosphorus Magnesium Iron TIBC Transferrin Ferritin ALT Alkaline Phosphatase Total Creatine Kinase CK-MB (CK-2) Rel Index Troponin T Albumin LDL Cholesterol Direct PTH Intact Salicylates Acetaminophen Crossmatch 04/26/19 04/26/19 04/26/19 00:59 05:52 10:12 WBC 11.5 H RBC 2.84 L Hgb 7.4 L Hct 23.3 L MCV 82 L MCH 26 L MCHC RDW 20.3 H Plt Count Lymph % (Auto) 7.5 L [place] % (Auto) 7.5 H Eos % (Auto) 5.3 H Baso % (Auto) Lymph # 0.9 L [place] # 0.9 H Eos # 0.6 H Baso # Seg Neutrophils % 79.2 H Seg Neuts % (Manual) Lymphocytes % (Manual) Eosinophils % (Manual) Seg Neutrophils # 9.1 H Lymphocytes # (Manual) Eosinophils # (Manual) PT INR D-Dimer POC ABG pH POC ABG pCO2 POC ABG pO2 ABG pO2 ABG HCO3 ABG Base Excess ABG Hemoglobin Oxyhemoglobin Sodium Potassium Chloride Carbon Dioxide BUN Creatinine Glucose POC Glucose 163 H 146 H Calcium Phosphorus Magnesium Iron TIBC Transferrin Ferritin ALT Alkaline Phosphatase Total Creatine Kinase CK-MB (CK-2) Rel Index Troponin T Albumin LDL Cholesterol Direct PTH Intact Salicylates Acetaminophen Crossmatch 04/26/19 04/26/19 04/26/19 10:12 12:15 19:00 WBC RBC Hgb Hct MCV MCH MCHC RDW Plt Count Lymph % (Auto) [place] % (Auto) Eos % (Auto) Baso % (Auto) Lymph # [place] # Eos # Baso # Seg Neutrophils % Seg Neuts % (Manual) Lymphocytes % (Manual) Eosinophils % (Manual) Seg Neutrophils # Lymphocytes # (Manual) Eosinophils # (Manual) PT INR D-Dimer POC ABG pH POC ABG pCO2 POC ABG pO2 ABG pO2 ABG HCO3 ABG Base Excess ABG Hemoglobin Oxyhemoglobin Sodium 130 L Potassium Chloride 87.4 L Carbon Dioxide BUN 93 H Creatinine 4.2 H Glucose 140 H POC Glucose 155 H 179 H Calcium Phosphorus Magnesium Iron TIBC Transferrin Ferritin ALT Alkaline Phosphatase Total Creatine Kinase CK-MB (CK-2) Rel Index Troponin T Albumin LDL Cholesterol Direct PTH Intact Salicylates Acetaminophen Crossmatch 04/27/19 04/27/19 04/27/19 00:23 06:34 17:13 WBC RBC Hgb Hct MCV MCH MCHC RDW Plt Count Lymph % (Auto) [place] % (Auto) Eos % (Auto) Baso % (Auto) Lymph # [place] # Eos # Baso # Seg Neutrophils % Seg Neuts % (Manual) Lymphocytes % (Manual) Eosinophils % (Manual) Seg Neutrophils # Lymphocytes # (Manual) Eosinophils # (Manual) PT INR D-Dimer POC ABG pH POC ABG pCO2 POC ABG pO2 ABG pO2 ABG HCO3 ABG Base Excess ABG Hemoglobin Oxyhemoglobin Sodium Potassium Chloride Carbon Dioxide BUN Creatinine Glucose POC Glucose 158 H 140 H 152 H Calcium Phosphorus Magnesium Iron TIBC Transferrin Ferritin ALT Alkaline Phosphatase Total Creatine Kinase CK-MB (CK-2) Rel Index Troponin T Albumin LDL Cholesterol Direct PTH Intact Salicylates Acetaminophen Crossmatch 04/27/19 04/28/19 04/28/19 23:50 05:18 11:37 WBC RBC Hgb Hct MCV MCH MCHC RDW Plt Count Lymph % (Auto) [place] % (Auto) Eos % (Auto) Baso % (Auto) Lymph # [place] # Eos # Baso # Seg Neutrophils % Seg Neuts % (Manual) Lymphocytes % (Manual) Eosinophils % (Manual) Seg Neutrophils # Lymphocytes # (Manual) Eosinophils # (Manual) PT INR D-Dimer POC ABG pH POC ABG pCO2 POC ABG pO2 ABG pO2 ABG HCO3 ABG Base Excess ABG Hemoglobin Oxyhemoglobin Sodium Potassium Chloride Carbon Dioxide BUN Creatinine Glucose POC Glucose 160 H 145 H 177 H Calcium Phosphorus Magnesium Iron TIBC Transferrin Ferritin ALT Alkaline Phosphatase Total Creatine Kinase CK-MB (CK-2) Rel Index Troponin T Albumin LDL Cholesterol Direct PTH Intact Salicylates Acetaminophen Crossmatch 04/28/19 04/28/19 04/29/19 18:31 23:47 05:50 WBC RBC Hgb Hct MCV MCH MCHC RDW Plt Count Lymph % (Auto) [place] % (Auto) Eos % (Auto) Baso % (Auto) Lymph # [place] # Eos # Baso # Seg Neutrophils % Seg Neuts % (Manual) Lymphocytes % (Manual) Eosinophils % (Manual) Seg Neutrophils # Lymphocytes # (Manual) Eosinophils # (Manual) PT INR D-Dimer POC ABG pH POC ABG pCO2 POC ABG pO2 ABG pO2 ABG HCO3 ABG Base Excess ABG Hemoglobin Oxyhemoglobin Sodium Potassium Chloride Carbon Dioxide BUN Creatinine Glucose POC Glucose 153 H 117 H 177 H Calcium Phosphorus Magnesium Iron TIBC Transferrin Ferritin ALT Alkaline Phosphatase Total Creatine Kinase CK-MB (CK-2) Rel Index Troponin T Albumin LDL Cholesterol Direct PTH Intact Salicylates Acetaminophen Crossmatch 04/29/19 04/30/19 04/30/19 17:04 01:02 06:42 WBC RBC Hgb Hct MCV MCH MCHC RDW Plt Count Lymph % (Auto) [place] % (Auto) Eos % (Auto) Baso % (Auto) Lymph # [place] # Eos # Baso # Seg Neutrophils % Seg Neuts % (Manual) Lymphocytes % (Manual) Eosinophils % (Manual) Seg Neutrophils # Lymphocytes # (Manual) Eosinophils # (Manual) PT INR D-Dimer POC ABG pH POC ABG pCO2 POC ABG pO2 ABG pO2 ABG HCO3 ABG Base Excess ABG Hemoglobin Oxyhemoglobin Sodium Potassium Chloride Carbon Dioxide BUN Creatinine Glucose POC Glucose 205 H 143 H 145 H Calcium Phosphorus Magnesium Iron TIBC Transferrin Ferritin ALT Alkaline Phosphatase Total Creatine Kinase CK-MB (CK-2) Rel Index Troponin T Albumin LDL Cholesterol Direct PTH Intact Salicylates Acetaminophen Crossmatch 04/30/19 04/30/19 04/30/19 11:31 18:12 23:38 WBC RBC Hgb Hct MCV MCH MCHC RDW Plt Count Lymph % (Auto) [place] % (Auto) Eos % (Auto) Baso % (Auto) Lymph # [place] # Eos # Baso # Seg Neutrophils % Seg Neuts % (Manual) Lymphocytes % (Manual) Eosinophils % (Manual) Seg Neutrophils # Lymphocytes # (Manual) Eosinophils # (Manual) PT INR D-Dimer POC ABG pH POC ABG pCO2 POC ABG pO2 ABG pO2 ABG HCO3 ABG Base Excess ABG Hemoglobin Oxyhemoglobin Sodium Potassium Chloride Carbon Dioxide BUN Creatinine Glucose POC Glucose 162 H 117 H 139 H Calcium Phosphorus Magnesium Iron TIBC Transferrin Ferritin ALT Alkaline Phosphatase Total Creatine Kinase CK-MB (CK-2) Rel Index Troponin T Albumin LDL Cholesterol Direct PTH Intact Salicylates Acetaminophen Crossmatch 05/01/19 05/01/19 05/02/19 06:06 23:41 05:59 WBC RBC Hgb Hct MCV MCH MCHC RDW Plt Count Lymph % (Auto) [place] % (Auto) Eos % (Auto) Baso % (Auto) Lymph # [place] # Eos # Baso # Seg Neutrophils % Seg Neuts % (Manual) Lymphocytes % (Manual) Eosinophils % (Manual) Seg Neutrophils # Lymphocytes # (Manual) Eosinophils # (Manual) PT INR D-Dimer POC ABG pH POC ABG pCO2 POC ABG pO2 ABG pO2 ABG HCO3 ABG Base Excess ABG Hemoglobin Oxyhemoglobin Sodium Potassium Chloride Carbon Dioxide BUN Creatinine Glucose POC Glucose 150 H 140 H 130 H Calcium Phosphorus Magnesium Iron TIBC Transferrin Ferritin ALT Alkaline Phosphatase Total Creatine Kinase CK-MB (CK-2) Rel Index Troponin T Albumin LDL Cholesterol Direct PTH Intact Salicylates Acetaminophen Crossmatch 05/02/19 05/02/19 05/03/19 11:55 18:10 00:15 WBC RBC Hgb Hct MCV MCH MCHC RDW Plt Count Lymph % (Auto) [place] % (Auto) Eos % (Auto) Baso % (Auto) Lymph # [place] # Eos # Baso # Seg Neutrophils % Seg Neuts % (Manual) Lymphocytes % (Manual) Eosinophils % (Manual) Seg Neutrophils # Lymphocytes # (Manual) Eosinophils # (Manual) PT INR D-Dimer POC ABG pH POC ABG pCO2 POC ABG pO2 ABG pO2 ABG HCO3 ABG Base Excess ABG Hemoglobin Oxyhemoglobin Sodium Potassium Chloride Carbon Dioxide BUN Creatinine Glucose POC Glucose 146 H 141 H 145 H Calcium Phosphorus Magnesium Iron TIBC Transferrin Ferritin ALT Alkaline Phosphatase Total Creatine Kinase CK-MB (CK-2) Rel Index Troponin T Albumin LDL Cholesterol Direct PTH Intact Salicylates Acetaminophen Crossmatch 05/03/19 05/03/19 05/03/19 05:49 05:49 06:01 WBC RBC 2.84 L Hgb 7.2 L Hct 22.9 L MCV 81 L MCH 26 L MCHC RDW 20.6 H Plt Count 456 H Lymph % (Auto) 11.8 L [place] % (Auto) Eos % (Auto) 10.6 H Baso % (Auto) Lymph # 1.1 L [place] # Eos # 1.0 H Baso # Seg Neutrophils % 70.4 H Seg Neuts % (Manual) Lymphocytes % (Manual) Eosinophils % (Manual) Seg Neutrophils # Lymphocytes # (Manual) Eosinophils # (Manual) PT INR D-Dimer POC ABG pH POC ABG pCO2 POC ABG pO2 ABG pO2 ABG HCO3 ABG Base Excess ABG Hemoglobin Oxyhemoglobin Sodium Potassium Chloride 94.8 L Carbon Dioxide BUN 66 H Creatinine 3.6 H Glucose 129 H POC Glucose 135 H Calcium Phosphorus Magnesium Iron TIBC Transferrin Ferritin ALT Alkaline Phosphatase Total Creatine Kinase CK-MB (CK-2) Rel Index Troponin T Albumin LDL Cholesterol Direct PTH Intact Salicylates Acetaminophen Crossmatch 05/03/19 05/03/19 05/04/19 11:04 18:40 00:06 WBC RBC Hgb Hct MCV MCH MCHC RDW Plt Count Lymph % (Auto) [place] % (Auto) Eos % (Auto) Baso % (Auto) Lymph # [place] # Eos # Baso # Seg Neutrophils % Seg Neuts % (Manual) Lymphocytes % (Manual) Eosinophils % (Manual) Seg Neutrophils # Lymphocytes # (Manual) Eosinophils # (Manual) PT INR D-Dimer POC ABG pH POC ABG pCO2 POC ABG pO2 ABG pO2 ABG HCO3 ABG Base Excess ABG Hemoglobin Oxyhemoglobin Sodium Potassium Chloride Carbon Dioxide BUN Creatinine Glucose POC Glucose 191 H 167 H 137 H Calcium Phosphorus Magnesium Iron TIBC Transferrin Ferritin ALT Alkaline Phosphatase Total Creatine Kinase CK-MB (CK-2) Rel Index Troponin T Albumin LDL Cholesterol Direct PTH Intact Salicylates Acetaminophen Crossmatch 05/04/19 05/04/19 05/04/19 06:44 07:30 07:30 WBC 15.8 H RBC 2.74 L Hgb 6.7 L Hct 22.2 L MCV 81 L MCH 24 L MCHC 30 L RDW 20.4 H Plt Count 450 H Lymph % (Auto) 5.1 L [place] % (Auto) Eos % (Auto) Baso % (Auto) Lymph # 0.8 L [place] # Eos # 0.6 H Baso # Seg Neutrophils % 86.3 H Seg Neuts % (Manual) Lymphocytes % (Manual) Eosinophils % (Manual) Seg Neutrophils # 13.6 H Lymphocytes # (Manual) Eosinophils # (Manual) PT INR D-Dimer POC ABG pH POC ABG pCO2 POC ABG pO2 ABG pO2 ABG HCO3 ABG Base Excess ABG Hemoglobin Oxyhemoglobin Sodium Potassium Chloride 95.2 L Carbon Dioxide BUN 92 H Creatinine 4.8 H Glucose 139 H POC Glucose 153 H Calcium Phosphorus Magnesium Iron TIBC Transferrin Ferritin ALT Alkaline Phosphatase Total Creatine Kinase CK-MB (CK-2) Rel Index Troponin T Albumin LDL Cholesterol Direct PTH Intact Salicylates Acetaminophen Crossmatch 05/04/19 05/04/19 05/05/19 12:55 16:31 01:02 WBC RBC Hgb Hct MCV MCH MCHC RDW Plt Count Lymph % (Auto) [place] % (Auto) Eos % (Auto) Baso % (Auto) Lymph # [place] # Eos # Baso # Seg Neutrophils % Seg Neuts % (Manual) Lymphocytes % (Manual) Eosinophils % (Manual) Seg Neutrophils # Lymphocytes # (Manual) Eosinophils # (Manual) PT INR D-Dimer POC ABG pH POC ABG pCO2 POC ABG pO2 ABG pO2 ABG HCO3 ABG Base Excess ABG Hemoglobin Oxyhemoglobin Sodium Potassium Chloride Carbon Dioxide BUN Creatinine Glucose POC Glucose 169 H 171 H Calcium Phosphorus Magnesium Iron TIBC Transferrin Ferritin ALT Alkaline Phosphatase Total Creatine Kinase CK-MB (CK-2) Rel Index Troponin T Albumin LDL Cholesterol Direct PTH Intact Salicylates Acetaminophen Crossmatch See Detail 05/05/19 05/05/19 05/05/19 05:26 05:36 11:48 WBC 12.6 H RBC 2.73 L Hgb 6.9 L Hct 22.3 L MCV 82 L MCH 25 L MCHC 31 L RDW 21.0 H Plt Count Lymph % (Auto) 8.9 L [place] % (Auto) Eos % (Auto) Baso % (Auto) Lymph # 1.1 L [place] # 0.9 H Eos # Baso # Seg Neutrophils % 80.7 H Seg Neuts % (Manual) Lymphocytes % (Manual) Eosinophils % (Manual) Seg Neutrophils # 10.2 H Lymphocytes # (Manual) Eosinophils # (Manual) PT INR D-Dimer POC ABG pH POC ABG pCO2 POC ABG pO2 ABG pO2 ABG HCO3 ABG Base Excess ABG Hemoglobin Oxyhemoglobin Sodium Potassium Chloride Carbon Dioxide BUN Creatinine Glucose POC Glucose 153 H 173 H Calcium Phosphorus Magnesium Iron TIBC Transferrin Ferritin ALT Alkaline Phosphatase Total Creatine Kinase CK-MB (CK-2) Rel Index Troponin T Albumin LDL Cholesterol Direct PTH Intact Salicylates Acetaminophen Crossmatch 05/05/19 05/06/19 05/06/19 16:42 02:24 06:12 WBC RBC Hgb Hct MCV MCH MCHC RDW Plt Count Lymph % (Auto) [place] % (Auto) Eos % (Auto) Baso % (Auto) Lymph # [place] # Eos # Baso # Seg Neutrophils % Seg Neuts % (Manual) Lymphocytes % (Manual) Eosinophils % (Manual) Seg Neutrophils # Lymphocytes # (Manual) Eosinophils # (Manual) PT INR D-Dimer POC ABG pH POC ABG pCO2 POC ABG pO2 ABG pO2 ABG HCO3 ABG Base Excess ABG Hemoglobin Oxyhemoglobin Sodium Potassium Chloride Carbon Dioxide BUN Creatinine Glucose POC Glucose 126 H 138 H 151 H Calcium Phosphorus Magnesium Iron TIBC Transferrin Ferritin ALT Alkaline Phosphatase Total Creatine Kinase CK-MB (CK-2) Rel Index Troponin T Albumin LDL Cholesterol Direct PTH Intact Salicylates Acetaminophen Crossmatch 05/06/19 05/06/19 05/06/19 08:15 16:48 23:16 WBC 11.8 H RBC 2.72 L Hgb 6.7 L Hct 21.7 L MCV 80 L MCH 25 L MCHC 31 L RDW 20.9 H Plt Count Lymph % (Auto) [place] % (Auto) Eos % (Auto) Baso % (Auto) Lymph # [place] # Eos # Baso # Seg Neutrophils % Seg Neuts % (Manual) Lymphocytes % (Manual) Eosinophils % (Manual) Seg Neutrophils # Lymphocytes # (Manual) Eosinophils # (Manual) PT INR D-Dimer POC ABG pH POC ABG pCO2 POC ABG pO2 ABG pO2 ABG HCO3 ABG Base Excess ABG Hemoglobin Oxyhemoglobin Sodium Potassium Chloride Carbon Dioxide BUN Creatinine Glucose POC Glucose 153 H 143 H Calcium Phosphorus Magnesium Iron TIBC Transferrin Ferritin ALT Alkaline Phosphatase Total Creatine Kinase CK-MB (CK-2) Rel Index Troponin T Albumin LDL Cholesterol Direct PTH Intact Salicylates Acetaminophen Crossmatch 05/07/19 05/07/19 05/07/19 06:00 06:30 12:33 WBC RBC 3.53 L Hgb 9.1 L Hct 28.6 L D MCV 81 L MCH 26 L MCHC RDW 19.1 H Plt Count Lymph % (Auto) 9.6 L [place] % (Auto) Eos % (Auto) 4.8 H Baso % (Auto) Lymph # 1.1 L [place] # Eos # 0.5 H Baso # Seg Neutrophils % 77.8 H Seg Neuts % (Manual) Lymphocytes % (Manual) Eosinophils % (Manual) Seg Neutrophils # 8.6 H Lymphocytes # (Manual) Eosinophils # (Manual) PT INR D-Dimer POC ABG pH POC ABG pCO2 POC ABG pO2 ABG pO2 ABG HCO3 ABG Base Excess ABG Hemoglobin Oxyhemoglobin Sodium Potassium Chloride Carbon Dioxide BUN Creatinine Glucose POC Glucose 122 H 140 H Calcium Phosphorus Magnesium Iron TIBC Transferrin Ferritin ALT Alkaline Phosphatase Total Creatine Kinase CK-MB (CK-2) Rel Index Troponin T Albumin LDL Cholesterol Direct PTH Intact Salicylates Acetaminophen Crossmatch 05/07/19 05/07/19 05/08/19 16:41 23:55 05:10 WBC 11.6 H RBC 3.54 L Hgb 9.1 L Hct 29.1 L MCV 82 L MCH 26 L MCHC 31 L RDW 19.6 H Plt Count Lymph % (Auto) 6.6 L [place] % (Auto) Eos % (Auto) Baso % (Auto) 1.9 H Lymph # 0.8 L [place] # Eos # Baso # 0.2 H Seg Neutrophils % 82.6 H Seg Neuts % (Manual) Lymphocytes % (Manual) Eosinophils % (Manual) Seg Neutrophils # 9.6 H Lymphocytes # (Manual) Eosinophils # (Manual) PT INR D-Dimer POC ABG pH POC ABG pCO2 POC ABG pO2 ABG pO2 ABG HCO3 ABG Base Excess ABG Hemoglobin Oxyhemoglobin Sodium Potassium Chloride Carbon Dioxide BUN Creatinine Glucose POC Glucose 143 H 153 H Calcium Phosphorus Magnesium Iron TIBC Transferrin Ferritin ALT Alkaline Phosphatase Total Creatine Kinase CK-MB (CK-2) Rel Index Troponin T Albumin LDL Cholesterol Direct PTH Intact Salicylates Acetaminophen Crossmatch 05/08/19 05/08/19 05/09/19 06:09 16:55 03:27 WBC RBC Hgb Hct MCV MCH MCHC RDW Plt Count Lymph % (Auto) [place] % (Auto) Eos % (Auto) Baso % (Auto) Lymph # [place] # Eos # Baso # Seg Neutrophils % Seg Neuts % (Manual) Lymphocytes % (Manual) Eosinophils % (Manual) Seg Neutrophils # Lymphocytes # (Manual) Eosinophils # (Manual) PT INR D-Dimer POC ABG pH POC ABG pCO2 POC ABG pO2 ABG pO2 ABG HCO3 ABG Base Excess ABG Hemoglobin Oxyhemoglobin Sodium Potassium Chloride Carbon Dioxide BUN Creatinine Glucose POC Glucose 204 H 196 H 175 H Calcium Phosphorus Magnesium Iron TIBC Transferrin Ferritin ALT Alkaline Phosphatase Total Creatine Kinase CK-MB (CK-2) Rel Index Troponin T Albumin LDL Cholesterol Direct PTH Intact Salicylates Acetaminophen Crossmatch 1005/09/19 05/09/19 06:00 11:00 12:41 WBC 12.0 H RBC Hgb 9.7 L Hct 30.2 L MCV 83 L MCH 26 L MCHC RDW 20.1 H Plt Count Lymph % (Auto) 7.4 L [place] % (Auto) 7.6 H Eos % (Auto) Baso % (Auto) Lymph # 0.9 L [place] # 0.9 H Eos # Baso # Seg Neutrophils % 80.7 H Seg Neuts % (Manual) Lymphocytes % (Manual) Eosinophils % (Manual) Seg Neutrophils # 9.7 H Lymphocytes # (Manual) Eosinophils # (Manual) PT INR D-Dimer POC ABG pH POC ABG pCO2 POC ABG pO2 ABG pO2 ABG HCO3 ABG Base Excess ABG Hemoglobin Oxyhemoglobin Sodium Potassium Chloride Carbon Dioxide BUN Creatinine Glucose POC Glucose 172 H 168 H Calcium Phosphorus Magnesium Iron TIBC Transferrin Ferritin ALT Alkaline Phosphatase Total Creatine Kinase CK-MB (CK-2) Rel Index Troponin T Albumin LDL Cholesterol Direct PTH Intact Salicylates Acetaminophen Crossmatch 05/09/19 05/10/19 05/10/19 17:45 01:26 06:07 WBC RBC Hgb Hct MCV MCH MCHC RDW Plt Count Lymph % (Auto) [place] % (Auto) Eos % (Auto) Baso % (Auto) Lymph # [place] # Eos # Baso # Seg Neutrophils % Seg Neuts % (Manual) Lymphocytes % (Manual) Eosinophils % (Manual) Seg Neutrophils # Lymphocytes # (Manual) Eosinophils # (Manual) PT INR D-Dimer POC ABG pH POC ABG pCO2 POC ABG pO2 ABG pO2 ABG HCO3 ABG Base Excess ABG Hemoglobin Oxyhemoglobin Sodium Potassium Chloride Carbon Dioxide BUN Creatinine Glucose POC Glucose 167 H 174 H 179 H Calcium Phosphorus Magnesium Iron TIBC Transferrin Ferritin ALT Alkaline Phosphatase Total Creatine Kinase CK-MB (CK-2) Rel Index Troponin T Albumin LDL Cholesterol Direct PTH Intact Salicylates Acetaminophen Crossmatch 05/10/19 05/10/19 05/10/19 06:45 12:31 17:18 WBC RBC Hgb Hct MCV MCH MCHC RDW Plt Count Lymph % (Auto) [place] % (Auto) Eos % (Auto) Baso % (Auto) Lymph # [place] # Eos # Baso # Seg Neutrophils % Seg Neuts % (Manual) Lymphocytes % (Manual) Eosinophils % (Manual) Seg Neutrophils # Lymphocytes # (Manual) Eosinophils # (Manual) PT INR D-Dimer POC ABG pH POC ABG pCO2 POC ABG pO2 ABG pO2 ABG HCO3 ABG Base Excess ABG Hemoglobin Oxyhemoglobin Sodium 134 L Potassium Chloride 90.2 L Carbon Dioxide BUN 82 H Creatinine 4.1 H Glucose 195 H POC Glucose 201 H 197 H Calcium Phosphorus Magnesium Iron TIBC Transferrin Ferritin ALT Alkaline Phosphatase Total Creatine Kinase CK-MB (CK-2) Rel Index Troponin T Albumin LDL Cholesterol Direct PTH Intact Salicylates Acetaminophen Crossmatch 05/11/19 05/11/19 05/11/19 00:20 06:30 17:38 WBC RBC Hgb Hct MCV MCH MCHC RDW Plt Count Lymph % (Auto) [place] % (Auto) Eos % (Auto) Baso % (Auto) Lymph # [place] # Eos # Baso # Seg Neutrophils % Seg Neuts % (Manual) Lymphocytes % (Manual) Eosinophils % (Manual) Seg Neutrophils # Lymphocytes # (Manual) Eosinophils # (Manual) PT INR D-Dimer POC ABG pH POC ABG pCO2 POC ABG pO2 ABG pO2 ABG HCO3 ABG Base Excess ABG Hemoglobin Oxyhemoglobin Sodium Potassium Chloride Carbon Dioxide BUN Creatinine Glucose POC Glucose 131 H 148 H 198 H Calcium Phosphorus Magnesium Iron TIBC Transferrin Ferritin ALT Alkaline Phosphatase Total Creatine Kinase CK-MB (CK-2) Rel Index Troponin T Albumin LDL Cholesterol Direct PTH Intact Salicylates Acetaminophen Crossmatch 05/12/19 05/12/19 05/12/19 00:44 06:13 07:15 WBC RBC 3.32 L Hgb 8.7 L Hct 27.8 L MCV MCH 26 L MCHC 31 L RDW 19.8 H Plt Count Lymph % (Auto) 6.9 L [place] % (Auto) Eos % (Auto) 6.5 H Baso % (Auto) Lymph # 0.7 L [place] # Eos # 0.6 H Baso # Seg Neutrophils % 78.6 H Seg Neuts % (Manual) Lymphocytes % (Manual) Eosinophils % (Manual) Seg Neutrophils # 7.8 H Lymphocytes # (Manual) Eosinophils # (Manual) PT INR D-Dimer POC ABG pH POC ABG pCO2 POC ABG pO2 ABG pO2 ABG HCO3 ABG Base Excess ABG Hemoglobin Oxyhemoglobin Sodium Potassium Chloride Carbon Dioxide BUN Creatinine Glucose POC Glucose 170 H 133 H Calcium Phosphorus Magnesium Iron TIBC Transferrin Ferritin ALT Alkaline Phosphatase Total Creatine Kinase CK-MB (CK-2) Rel Index Troponin T Albumin LDL Cholesterol Direct PTH Intact Salicylates Acetaminophen Crossmatch 05/12/19 05/12/19 05/12/19 07:15 11:17 17:37 WBC RBC Hgb Hct MCV MCH MCHC RDW Plt Count Lymph % (Auto) [place] % (Auto) Eos % (Auto) Baso % (Auto) Lymph # [place] # Eos # Baso # Seg Neutrophils % Seg Neuts % (Manual) Lymphocytes % (Manual) Eosinophils % (Manual) Seg Neutrophils # Lymphocytes # (Manual) Eosinophils # (Manual) PT INR D-Dimer POC ABG pH POC ABG pCO2 POC ABG pO2 ABG pO2 ABG HCO3 ABG Base Excess ABG Hemoglobin Oxyhemoglobin Sodium 135 L Potassium Chloride 94.2 L Carbon Dioxide BUN 59 H Creatinine 3.4 H Glucose 134 H POC Glucose 132 H 165 H Calcium Phosphorus Magnesium Iron TIBC Transferrin Ferritin ALT Alkaline Phosphatase Total Creatine Kinase CK-MB (CK-2) Rel Index Troponin T Albumin LDL Cholesterol Direct PTH Intact Salicylates Acetaminophen Crossmatch 05/13/19 05/13/19 05/13/19 00:15 05:44 16:00 WBC RBC Hgb Hct MCV MCH MCHC RDW Plt Count Lymph % (Auto) [place] % (Auto) Eos % (Auto) Baso % (Auto) Lymph # [place] # Eos # Baso # Seg Neutrophils % Seg Neuts % (Manual) Lymphocytes % (Manual) Eosinophils % (Manual) Seg Neutrophils # Lymphocytes # (Manual) Eosinophils # (Manual) PT INR D-Dimer POC ABG pH POC ABG pCO2 POC ABG pO2 ABG pO2 ABG HCO3 ABG Base Excess ABG Hemoglobin Oxyhemoglobin Sodium Potassium Chloride Carbon Dioxide BUN Creatinine Glucose POC Glucose 144 H 133 H 221 H Calcium Phosphorus Magnesium Iron TIBC Transferrin Ferritin ALT Alkaline Phosphatase Total Creatine Kinase CK-MB (CK-2) Rel Index Troponin T Albumin LDL Cholesterol Direct PTH Intact Salicylates Acetaminophen Crossmatch 05/14/19 05/14/19 05/14/19 06:44 11:56 16:42 WBC RBC Hgb Hct MCV MCH MCHC RDW Plt Count Lymph % (Auto) [place] % (Auto) Eos % (Auto) Baso % (Auto) Lymph # [place] # Eos # Baso # Seg Neutrophils % Seg Neuts % (Manual) Lymphocytes % (Manual) Eosinophils % (Manual) Seg Neutrophils # Lymphocytes # (Manual) Eosinophils # (Manual) PT INR D-Dimer POC ABG pH POC ABG pCO2 POC ABG pO2 ABG pO2 ABG HCO3 ABG Base Excess ABG Hemoglobin Oxyhemoglobin Sodium Potassium Chloride Carbon Dioxide BUN Creatinine Glucose POC Glucose 187 H 141 H 183 H Calcium Phosphorus Magnesium Iron TIBC Transferrin Ferritin ALT Alkaline Phosphatase Total Creatine Kinase CK-MB (CK-2) Rel Index Troponin T Albumin LDL Cholesterol Direct PTH Intact Salicylates Acetaminophen Crossmatch 05/15/19 05/15/19 05/15/19 00:11 05:55 18:46 WBC RBC Hgb Hct MCV MCH MCHC RDW Plt Count Lymph % (Auto) [place] % (Auto) Eos % (Auto) Baso % (Auto) Lymph # [place] # Eos # Baso # Seg Neutrophils % Seg Neuts % (Manual) Lymphocytes % (Manual) Eosinophils % (Manual) Seg Neutrophils # Lymphocytes # (Manual) Eosinophils # (Manual) PT INR D-Dimer POC ABG pH POC ABG pCO2 POC ABG pO2 ABG pO2 ABG HCO3 ABG Base Excess ABG Hemoglobin Oxyhemoglobin Sodium Potassium Chloride Carbon Dioxide BUN Creatinine Glucose POC Glucose 169 H 119 H 173 H Calcium Phosphorus Magnesium Iron TIBC Transferrin Ferritin ALT Alkaline Phosphatase Total Creatine Kinase CK-MB (CK-2) Rel Index Troponin T Albumin LDL Cholesterol Direct PTH Intact Salicylates Acetaminophen Crossmatch 05/16/19 05/16/19 05/16/19 00:18 06:17 12:47 WBC RBC Hgb Hct MCV MCH MCHC RDW Plt Count Lymph % (Auto) [place] % (Auto) Eos % (Auto) Baso % (Auto) Lymph # [place] # Eos # Baso # Seg Neutrophils % Seg Neuts % (Manual) Lymphocytes % (Manual) Eosinophils % (Manual) Seg Neutrophils # Lymphocytes # (Manual) Eosinophils # (Manual) PT INR D-Dimer POC ABG pH POC ABG pCO2 POC ABG pO2 ABG pO2 ABG HCO3 ABG Base Excess ABG Hemoglobin Oxyhemoglobin Sodium Potassium Chloride Carbon Dioxide BUN Creatinine Glucose POC Glucose 201 H 149 H 207 H Calcium Phosphorus Magnesium Iron TIBC Transferrin Ferritin ALT Alkaline Phosphatase Total Creatine Kinase CK-MB (CK-2) Rel Index Troponin T Albumin LDL Cholesterol Direct PTH Intact Salicylates Acetaminophen Crossmatch 05/16/19 05/17/19 05/17/19 17:48 00:01 06:26 WBC RBC Hgb Hct MCV MCH MCHC RDW Plt Count Lymph % (Auto) [place] % (Auto) Eos % (Auto) Baso % (Auto) Lymph # [place] # Eos # Baso # Seg Neutrophils % Seg Neuts % (Manual) Lymphocytes % (Manual) Eosinophils % (Manual) Seg Neutrophils # Lymphocytes # (Manual) Eosinophils # (Manual) PT INR D-Dimer POC ABG pH POC ABG pCO2 POC ABG pO2 ABG pO2 ABG HCO3 ABG Base Excess ABG Hemoglobin Oxyhemoglobin Sodium Potassium Chloride Carbon Dioxide BUN Creatinine Glucose POC Glucose 183 H 176 H 177 H Calcium Phosphorus Magnesium Iron TIBC Transferrin Ferritin ALT Alkaline Phosphatase Total Creatine Kinase CK-MB (CK-2) Rel Index Troponin T Albumin LDL Cholesterol Direct PTH Intact Salicylates Acetaminophen Crossmatch 05/17/19 05/17/19 05/18/19 12:19 17:45 00:30 WBC RBC Hgb Hct MCV MCH MCHC RDW Plt Count Lymph % (Auto) [place] % (Auto) Eos % (Auto) Baso % (Auto) Lymph # [place] # Eos # Baso # Seg Neutrophils % Seg Neuts % (Manual) Lymphocytes % (Manual) Eosinophils % (Manual) Seg Neutrophils # Lymphocytes # (Manual) Eosinophils # (Manual) PT INR D-Dimer POC ABG pH POC ABG pCO2 POC ABG pO2 ABG pO2 ABG HCO3 ABG Base Excess ABG Hemoglobin Oxyhemoglobin Sodium Potassium Chloride Carbon Dioxide BUN Creatinine Glucose POC Glucose 174 H 171 H 181 H Calcium Phosphorus Magnesium Iron TIBC Transferrin Ferritin ALT Alkaline Phosphatase Total Creatine Kinase CK-MB (CK-2) Rel Index Troponin T Albumin LDL Cholesterol Direct PTH Intact Salicylates Acetaminophen Crossmatch 05/18/19 05/18/19 05/19/19 06:18 16:53 00:19 WBC RBC Hgb Hct MCV MCH MCHC RDW Plt Count Lymph % (Auto) [place] % (Auto) Eos % (Auto) Baso % (Auto) Lymph # [place] # Eos # Baso # Seg Neutrophils % Seg Neuts % (Manual) Lymphocytes % (Manual) Eosinophils % (Manual) Seg Neutrophils # Lymphocytes # (Manual) Eosinophils # (Manual) PT INR D-Dimer POC ABG pH POC ABG pCO2 POC ABG pO2 ABG pO2 ABG HCO3 ABG Base Excess ABG Hemoglobin Oxyhemoglobin Sodium Potassium Chloride Carbon Dioxide BUN Creatinine Glucose POC Glucose 165 H 166 H 207 H Calcium Phosphorus Magnesium Iron TIBC Transferrin Ferritin ALT Alkaline Phosphatase Total Creatine Kinase CK-MB (CK-2) Rel Index Troponin T Albumin LDL Cholesterol Direct PTH Intact Salicylates Acetaminophen Crossmatch 05/19/19 05/19/19 05/19/19 01:00 01:00 05:15 WBC 11.6 H RBC 3.12 L Hgb 7.9 L Hct 25.9 L MCV 83 L MCH 25 L MCHC 31 L RDW 21.1 H Plt Count Lymph % (Auto) [place] % (Auto) Eos % (Auto) Baso % (Auto) Lymph # [place] # Eos # Baso # Seg Neutrophils % Seg Neuts % (Manual) Lymphocytes % (Manual) Eosinophils % (Manual) Seg Neutrophils # Lymphocytes # (Manual) Eosinophils # (Manual) PT INR D-Dimer POC ABG pH POC ABG pCO2 POC ABG pO2 ABG pO2 ABG HCO3 ABG Base Excess ABG Hemoglobin Oxyhemoglobin Sodium 135 L Potassium Chloride 93.6 L Carbon Dioxide BUN 64 H Creatinine 2.8 H Glucose 194 H POC Glucose 176 H Calcium Phosphorus Magnesium Iron TIBC Transferrin Ferritin ALT Alkaline Phosphatase Total Creatine Kinase CK-MB (CK-2) Rel Index Troponin T Albumin LDL Cholesterol Direct PTH Intact Salicylates Acetaminophen Crossmatch 05/19/19 05/19/19 05/20/19 11:21 18:48 00:01 WBC RBC Hgb Hct MCV MCH MCHC RDW Plt Count Lymph % (Auto) [place] % (Auto) Eos % (Auto) Baso % (Auto) Lymph # [place] # Eos # Baso # Seg Neutrophils % Seg Neuts % (Manual) Lymphocytes % (Manual) Eosinophils % (Manual) Seg Neutrophils # Lymphocytes # (Manual) Eosinophils # (Manual) PT INR D-Dimer POC ABG pH POC ABG pCO2 POC ABG pO2 ABG pO2 ABG HCO3 ABG Base Excess ABG Hemoglobin Oxyhemoglobin Sodium Potassium Chloride Carbon Dioxide BUN Creatinine Glucose POC Glucose 162 H 140 H 200 H Calcium Phosphorus Magnesium Iron TIBC Transferrin Ferritin ALT Alkaline Phosphatase Total Creatine Kinase CK-MB (CK-2) Rel Index Troponin T Albumin LDL Cholesterol Direct PTH Intact Salicylates Acetaminophen Crossmatch 05/20/19 05/20/19 05/21/19 05:58 17:50 00:43 WBC RBC Hgb Hct MCV MCH MCHC RDW Plt Count Lymph % (Auto) [place] % (Auto) Eos % (Auto) Baso % (Auto) Lymph # [place] # Eos # Baso # Seg Neutrophils % Seg Neuts % (Manual) Lymphocytes % (Manual) Eosinophils % (Manual) Seg Neutrophils # Lymphocytes # (Manual) Eosinophils # (Manual) PT INR D-Dimer POC ABG pH POC ABG pCO2 POC ABG pO2 ABG pO2 ABG HCO3 ABG Base Excess ABG Hemoglobin Oxyhemoglobin Sodium Potassium Chloride Carbon Dioxide BUN Creatinine Glucose POC Glucose 132 H 154 H 165 H Calcium Phosphorus Magnesium Iron TIBC Transferrin Ferritin ALT Alkaline Phosphatase Total Creatine Kinase CK-MB (CK-2) Rel Index Troponin T Albumin LDL Cholesterol Direct PTH Intact Salicylates Acetaminophen Crossmatch 05/21/19 05/21/19 05/21/19 06:06 11:15 17:04 WBC RBC Hgb Hct MCV MCH MCHC RDW Plt Count Lymph % (Auto) [place] % (Auto) Eos % (Auto) Baso % (Auto) Lymph # [place] # Eos # Baso # Seg Neutrophils % Seg Neuts % (Manual) Lymphocytes % (Manual) Eosinophils % (Manual) Seg Neutrophils # Lymphocytes # (Manual) Eosinophils # (Manual) PT INR D-Dimer POC ABG pH POC ABG pCO2 POC ABG pO2 ABG pO2 ABG HCO3 ABG Base Excess ABG Hemoglobin Oxyhemoglobin Sodium Potassium Chloride Carbon Dioxide BUN Creatinine Glucose POC Glucose 178 H 218 H 135 H Calcium Phosphorus Magnesium Iron TIBC Transferrin Ferritin ALT Alkaline Phosphatase Total Creatine Kinase CK-MB (CK-2) Rel Index Troponin T Albumin LDL Cholesterol Direct PTH Intact Salicylates Acetaminophen Crossmatch 05/21/19 05/22/19 05/22/19 23:25 06:09 18:32 WBC RBC Hgb Hct MCV MCH MCHC RDW Plt Count Lymph % (Auto) [place] % (Auto) Eos % (Auto) Baso % (Auto) Lymph # [place] # Eos # Baso # Seg Neutrophils % Seg Neuts % (Manual) Lymphocytes % (Manual) Eosinophils % (Manual) Seg Neutrophils # Lymphocytes # (Manual) Eosinophils # (Manual) PT INR D-Dimer POC ABG pH POC ABG pCO2 POC ABG pO2 ABG pO2 ABG HCO3 ABG Base Excess ABG Hemoglobin Oxyhemoglobin Sodium Potassium Chloride Carbon Dioxide BUN Creatinine Glucose POC Glucose 221 H 140 H 216 H Calcium Phosphorus Magnesium Iron TIBC Transferrin Ferritin ALT Alkaline Phosphatase Total Creatine Kinase CK-MB (CK-2) Rel Index Troponin T Albumin LDL Cholesterol Direct PTH Intact Salicylates Acetaminophen Crossmatch 05/22/19 05/23/19 05/23/19 23:56 05:23 12:46 WBC RBC Hgb Hct MCV MCH MCHC RDW Plt Count Lymph % (Auto) [place] % (Auto) Eos % (Auto) Baso % (Auto) Lymph # [place] # Eos # Baso # Seg Neutrophils % Seg Neuts % (Manual) Lymphocytes % (Manual) Eosinophils % (Manual) Seg Neutrophils # Lymphocytes # (Manual) Eosinophils # (Manual) PT INR D-Dimer POC ABG pH POC ABG pCO2 POC ABG pO2 ABG pO2 ABG HCO3 ABG Base Excess ABG Hemoglobin Oxyhemoglobin Sodium Potassium Chloride Carbon Dioxide BUN Creatinine Glucose POC Glucose 177 H 188 H 165 H Calcium Phosphorus Magnesium Iron TIBC Transferrin Ferritin ALT Alkaline Phosphatase Total Creatine Kinase CK-MB (CK-2) Rel Index Troponin T Albumin LDL Cholesterol Direct PTH Intact Salicylates Acetaminophen Crossmatch 05/23/19 05/24/19 05/24/19 17:36 00:06 06:51 WBC RBC Hgb Hct MCV MCH MCHC RDW Plt Count Lymph % (Auto) [place] % (Auto) Eos % (Auto) Baso % (Auto) Lymph # [place] # Eos # Baso # Seg Neutrophils % Seg Neuts % (Manual) Lymphocytes % (Manual) Eosinophils % (Manual) Seg Neutrophils # Lymphocytes # (Manual) Eosinophils # (Manual) PT INR D-Dimer POC ABG pH POC ABG pCO2 POC ABG pO2 ABG pO2 ABG HCO3 ABG Base Excess ABG Hemoglobin Oxyhemoglobin Sodium Potassium Chloride Carbon Dioxide BUN Creatinine Glucose POC Glucose 204 H 155 H 169 H Calcium Phosphorus Magnesium Iron TIBC Transferrin Ferritin ALT Alkaline Phosphatase Total Creatine Kinase CK-MB (CK-2) Rel Index Troponin T Albumin LDL Cholesterol Direct PTH Intact Salicylates Acetaminophen Crossmatch 05/24/19 05/24/19 05/25/19 11:33 17:47 00:03 WBC RBC Hgb Hct MCV MCH MCHC RDW Plt Count Lymph % (Auto) [place] % (Auto) Eos % (Auto) Baso % (Auto) Lymph # [place] # Eos # Baso # Seg Neutrophils % Seg Neuts % (Manual) Lymphocytes % (Manual) Eosinophils % (Manual) Seg Neutrophils # Lymphocytes # (Manual) Eosinophils # (Manual) PT INR D-Dimer POC ABG pH POC ABG pCO2 POC ABG pO2 ABG pO2 ABG HCO3 ABG Base Excess ABG Hemoglobin Oxyhemoglobin Sodium Potassium Chloride Carbon Dioxide BUN Creatinine Glucose POC Glucose 158 H 120 H 142 H Calcium Phosphorus Magnesium Iron TIBC Transferrin Ferritin ALT Alkaline Phosphatase Total Creatine Kinase CK-MB (CK-2) Rel Index Troponin T Albumin LDL Cholesterol Direct PTH Intact Salicylates Acetaminophen Crossmatch 05/25/19 05/25/19 05/25/19 05:34 14:37 17:34 WBC RBC Hgb Hct MCV MCH MCHC RDW Plt Count Lymph % (Auto) [place] % (Auto) Eos % (Auto) Baso % (Auto) Lymph # [place] # Eos # Baso # Seg Neutrophils % Seg Neuts % (Manual) Lymphocytes % (Manual) Eosinophils % (Manual) Seg Neutrophils # Lymphocytes # (Manual) Eosinophils # (Manual) PT INR D-Dimer POC ABG pH POC ABG pCO2 POC ABG pO2 ABG pO2 ABG HCO3 ABG Base Excess ABG Hemoglobin Oxyhemoglobin Sodium Potassium Chloride Carbon Dioxide BUN Creatinine Glucose POC Glucose 128 H 199 H 185 H Calcium Phosphorus Magnesium Iron TIBC Transferrin Ferritin ALT Alkaline Phosphatase Total Creatine Kinase CK-MB (CK-2) Rel Index Troponin T Albumin LDL Cholesterol Direct PTH Intact Salicylates Acetaminophen Crossmatch 05/26/19 05/26/19 05/26/19 06:21 11:39 17:47 WBC RBC Hgb Hct MCV MCH MCHC RDW Plt Count Lymph % (Auto) [place] % (Auto) Eos % (Auto) Baso % (Auto) Lymph # [place] # Eos # Baso # Seg Neutrophils % Seg Neuts % (Manual) Lymphocytes % (Manual) Eosinophils % (Manual) Seg Neutrophils # Lymphocytes # (Manual) Eosinophils # (Manual) PT INR D-Dimer POC ABG pH POC ABG pCO2 POC ABG pO2 ABG pO2 ABG HCO3 ABG Base Excess ABG Hemoglobin Oxyhemoglobin Sodium Potassium Chloride Carbon Dioxide BUN Creatinine Glucose POC Glucose 110 H 129 H 177 H Calcium Phosphorus Magnesium Iron TIBC Transferrin Ferritin ALT Alkaline Phosphatase Total Creatine Kinase CK-MB (CK-2) Rel Index Troponin T Albumin LDL Cholesterol Direct PTH Intact Salicylates Acetaminophen Crossmatch 05/27/19 05/27/19 05/27/19 00:02 06:40 13:41 WBC RBC Hgb Hct MCV MCH MCHC RDW Plt Count Lymph % (Auto) [place] % (Auto) Eos % (Auto) Baso % (Auto) Lymph # [place] # Eos # Baso # Seg Neutrophils % Seg Neuts % (Manual) Lymphocytes % (Manual) Eosinophils % (Manual) Seg Neutrophils # Lymphocytes # (Manual) Eosinophils # (Manual) PT INR D-Dimer POC ABG pH POC ABG pCO2 POC ABG pO2 ABG pO2 ABG HCO3 ABG Base Excess ABG Hemoglobin Oxyhemoglobin Sodium Potassium Chloride Carbon Dioxide BUN Creatinine Glucose POC Glucose 142 H 186 H 208 H Calcium Phosphorus Magnesium Iron TIBC Transferrin Ferritin ALT Alkaline Phosphatase Total Creatine Kinase CK-MB (CK-2) Rel Index Troponin T Albumin LDL Cholesterol Direct PTH Intact Salicylates Acetaminophen Crossmatch 05/27/19 05/27/19 05/28/19 17:03 23:36 06:46 WBC RBC Hgb Hct MCV MCH MCHC RDW Plt Count Lymph % (Auto) [place] % (Auto) Eos % (Auto) Baso % (Auto) Lymph # [place] # Eos # Baso # Seg Neutrophils % Seg Neuts % (Manual) Lymphocytes % (Manual) Eosinophils % (Manual) Seg Neutrophils # Lymphocytes # (Manual) Eosinophils # (Manual) PT INR D-Dimer POC ABG pH POC ABG pCO2 POC ABG pO2 ABG pO2 ABG HCO3 ABG Base Excess ABG Hemoglobin Oxyhemoglobin Sodium Potassium Chloride Carbon Dioxide BUN Creatinine Glucose POC Glucose 195 H 169 H 125 H Calcium Phosphorus Magnesium Iron TIBC Transferrin Ferritin ALT Alkaline Phosphatase Total Creatine Kinase CK-MB (CK-2) Rel Index Troponin T Albumin LDL Cholesterol Direct PTH Intact Salicylates Acetaminophen Crossmatch 05/28/19 05/28/19 05/28/19 10:57 10:57 10:57 WBC 11.4 H RBC 3.05 L Hgb 7.9 L Hct 24.9 L MCV 82 L MCH 26 L MCHC RDW 21.6 H Plt Count Lymph % (Auto) 7.5 L [place] % (Auto) 7.8 H Eos % (Auto) Baso % (Auto) Lymph # 0.9 L [place] # 0.9 H Eos # 0.5 H Baso # Seg Neutrophils % 79.5 H Seg Neuts % (Manual) Lymphocytes % (Manual) Eosinophils % (Manual) Seg Neutrophils # 9.1 H Lymphocytes # (Manual) Eosinophils # (Manual) PT INR D-Dimer POC ABG pH POC ABG pCO2 POC ABG pO2 ABG pO2 ABG HCO3 ABG Base Excess ABG Hemoglobin Oxyhemoglobin Sodium Potassium Chloride 94.0 L Carbon Dioxide BUN 53 H Creatinine 2.9 H Glucose 147 H POC Glucose Calcium Phosphorus Magnesium Iron TIBC Transferrin Ferritin ALT Alkaline Phosphatase 170 H Total Creatine Kinase CK-MB (CK-2) Rel Index Troponin T Albumin 2.2 L LDL Cholesterol Direct PTH Intact 199.5 H Salicylates Acetaminophen Crossmatch 05/28/19 05/28/19 05/28/19 12:02 16:37 23:40 WBC RBC Hgb Hct MCV MCH MCHC RDW Plt Count Lymph % (Auto) [place] % (Auto) Eos % (Auto) Baso % (Auto) Lymph # [place] # Eos # Baso # Seg Neutrophils % Seg Neuts % (Manual) Lymphocytes % (Manual) Eosinophils % (Manual) Seg Neutrophils # Lymphocytes # (Manual) Eosinophils # (Manual) PT INR D-Dimer POC ABG pH POC ABG pCO2 POC ABG pO2 ABG pO2 ABG HCO3 ABG Base Excess ABG Hemoglobin Oxyhemoglobin Sodium Potassium Chloride Carbon Dioxide BUN Creatinine Glucose POC Glucose 181 H 217 H 152 H Calcium Phosphorus Magnesium Iron TIBC Transferrin Ferritin ALT Alkaline Phosphatase Total Creatine Kinase CK-MB (CK-2) Rel Index Troponin T Albumin LDL Cholesterol Direct PTH Intact Salicylates Acetaminophen Crossmatch 05/29/19 05/29/19 05/29/19 06:38 12:49 12:49 WBC RBC Hgb Hct MCV MCH MCHC RDW Plt Count Lymph % (Auto) [place] % (Auto) Eos % (Auto) Baso % (Auto) Lymph # [place] # Eos # Baso # Seg Neutrophils % Seg Neuts % (Manual) Lymphocytes % (Manual) Eosinophils % (Manual) Seg Neutrophils # Lymphocytes # (Manual) Eosinophils # (Manual) PT INR D-Dimer POC ABG pH POC ABG pCO2 POC ABG pO2 ABG pO2 ABG HCO3 ABG Base Excess ABG Hemoglobin Oxyhemoglobin Sodium Potassium Chloride Carbon Dioxide BUN Creatinine Glucose POC Glucose 194 H Calcium Phosphorus Magnesium Iron 21 L TIBC 78 L Transferrin 61 L Ferritin 4009.0 H ALT Alkaline Phosphatase Total Creatine Kinase CK-MB (CK-2) Rel Index Troponin T Albumin LDL Cholesterol Direct PTH Intact Salicylates Acetaminophen Crossmatch 05/29/19 05/30/19 05/30/19 15:01 00:12 05:57 WBC RBC Hgb Hct MCV MCH MCHC RDW Plt Count Lymph % (Auto) [place] % (Auto) Eos % (Auto) Baso % (Auto) Lymph # [place] # Eos # Baso # Seg Neutrophils % Seg Neuts % (Manual) Lymphocytes % (Manual) Eosinophils % (Manual) Seg Neutrophils # Lymphocytes # (Manual) Eosinophils # (Manual) PT INR D-Dimer POC ABG pH POC ABG pCO2 POC ABG pO2 ABG pO2 ABG HCO3 ABG Base Excess ABG Hemoglobin Oxyhemoglobin Sodium Potassium Chloride Carbon Dioxide BUN Creatinine Glucose POC Glucose 172 H 184 H 113 H Calcium Phosphorus Magnesium Iron TIBC Transferrin Ferritin ALT Alkaline Phosphatase Total Creatine Kinase CK-MB (CK-2) Rel Index Troponin T Albumin LDL Cholesterol Direct PTH Intact Salicylates Acetaminophen Crossmatch 05/30/19 05/30/19 05/30/19 11:56 17:00 23:50 WBC RBC Hgb Hct MCV MCH MCHC RDW Plt Count Lymph % (Auto) [place] % (Auto) Eos % (Auto) Baso % (Auto) Lymph # [place] # Eos # Baso # Seg Neutrophils % Seg Neuts % (Manual) Lymphocytes % (Manual) Eosinophils % (Manual) Seg Neutrophils # Lymphocytes # (Manual) Eosinophils # (Manual) PT INR D-Dimer POC ABG pH POC ABG pCO2 POC ABG pO2 ABG pO2 ABG HCO3 ABG Base Excess ABG Hemoglobin Oxyhemoglobin Sodium Potassium Chloride Carbon Dioxide BUN Creatinine Glucose POC Glucose 170 H 155 H 114 H Calcium Phosphorus Magnesium Iron TIBC Transferrin Ferritin ALT Alkaline Phosphatase Total Creatine Kinase CK-MB (CK-2) Rel Index Troponin T Albumin LDL Cholesterol Direct PTH Intact Salicylates Acetaminophen Crossmatch 05/31/19 06:48 WBC RBC Hgb Hct MCV MCH MCHC RDW Plt Count Lymph % (Auto) [place] % (Auto) Eos % (Auto) Baso % (Auto) Lymph # [place] # Eos # Baso # Seg Neutrophils % Seg Neuts % (Manual) Lymphocytes % (Manual) Eosinophils % (Manual) Seg Neutrophils # Lymphocytes # (Manual) Eosinophils # (Manual) PT INR D-Dimer POC ABG pH POC ABG pCO2 POC ABG pO2 ABG pO2 ABG HCO3 ABG Base Excess ABG Hemoglobin Oxyhemoglobin Sodium Potassium Chloride Carbon Dioxide BUN Creatinine Glucose POC Glucose 132 H Calcium Phosphorus Magnesium Iron TIBC Transferrin Ferritin ALT Alkaline Phosphatase Total Creatine Kinase CK-MB (CK-2) Rel Index Troponin T Albumin LDL Cholesterol Direct PTH Intact Salicylates Acetaminophen Crossmatch
--- NOTE | 2019-05-31 13:25 | Progress Note ---
Assessment and Plan Assessment and plan: Patient is a 63-year-old -[place] man from [facility] with a plethora of co-morbidities including blindness, CVA, CHF, PPM/ICD, loop recorder since 2012 that is MRI compatible, IDDM type 2, sepsis left foot ulcer, afib, ESRD with complications on HD TTS, hypertension, AOCD and GERD who presented to the ED with hypotensive after intubation in the emergency room. Still intubated, diagnosed with fluid overload, pleural effusion. Patient has had recurrent admission in the hospital for similar reason and was recently discharged from the hospital following treatment of Severe Sepsis due to Necrotizing Unstagable sacral decubitus ulcer with ostemomylitis, expected to complete abx on discharg e till 02/16/19. Trach and peg done HR control improved with change in BB. Acute respiratory failure on mechanical ventilator >96 hrs Trach placed on 03/03/19 Pulm consult appreciated weaning trial VAP BUNDLE ASPIRATION BUNDLE Continue T-piece Finished therapy for Acinetobacter Acute pulmonary edema, fluid overload on CXR repeat xray intermittently Dialysis Necrotizing Unstagable sacral decubitus ulcer with ostemomyelitis Wound care, Dilated CMP Cardiomyiopathy EF 35-40% Continue diuresis PPM/ICD Acute encephalopathy, probably metabolic or toxic Continues on Mechanical ventilator. ESRD on hemodialysis nephrology following Vascular eval. done re: LUE AV graft, see note Bilateral pleural effusions Anticipate improvement with Permanent atrial fibrillation and flutter Not on anticoagulation because of anemia thrombocytopenia Change noted to BB agent to IV. Diabetes mellitus type 2 Fingerstick Q4h NSTEMI type 2 Cardiology following Schizophrenia continue home meds Legally blind supportive care hypertension Monitor BP Hypokalemia resolved Pulmonary hypertension by history Dysphagia s/p PEG tube Severe malnutrition/hypoalbuminemia with FTT: 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, supervisor mill following PEG placed on 01/02/19 Decubitus ulcer s/p colostomy wound care consult History of sacral osteomyelitis and LE ulcers Completed Antibiotics Place on contact isolation for ESBL Klebsiella pneumonia on wound culture 01/02/19 h/o Peripheral neuropathy: Continue gabapentin Anemia of chronic disease -s/p total of 8 units PRBC, follow cbc- no occult GI bleed noted. -Pt is s/p x1 DDVAP RUL atelectasis, nebs as needed DVT prophylaxis Lovenox DNR poor prognosis Disposition: Awaiting on SNF HD setup I spoke with his nephrew Jennifer Mims, Director of our Lab Plan is patient to go back to [facility] with contract in place for him to come here for Hemodialysis History Interval history: Patient was seen and examined. Follow-up on current diagnosis. No overnight events reported to me. Patient is mainly nonverbal. Imaging, nursing note, chart, labs and old chart reviewed. Hospitalist Physical - Physical exam Narrative exam: Gen: severely disable, nad, awake alert x 1 HEENT: NCAT, EOMI, PERRL, OP Clear Neck: supple, trach CVS/Heart: irreg irregular, normal S1S2, pulses present bilaterally Chest/Lungs: diminished bs ymmetrical chest expansion, good air entry bilaterally GI/Abdomen:peg, colostomy present, good bowel sounds, no guarding or rebound /Bladder: no suprapubic tenderness, no CVA or paraspinal tenderness Extermity/Skin: no c/c/e, no obvious rash MSK: no FROM x 4 Neuro: CN 2-12 grossly intact except vision, no new focal deficits Psych: calm - Constitutional Vitals: Temp Pulse Resp BP Pulse Ox 97.6 F 104 H 15 111/61 97 05/31/19 06:41 05/31/19 08:00 05/31/19 08:00 05/31/19 06:41 05/31/19 06:41 General appearance: Present: no acute distress, other (T peace). Absent: well- nourished Results - Labs CBC & Chem 7: 05/28/19 10:57 05/28/19 10:57 Labs: Laboratory Last Values WBC 11.4 K/mm3 (4.5-11.0) H 05/28/19 10:57 RBC 3.05 M/mm3 (3.65-5.03) L 05/28/19 10:57 Hgb 7.9 gm/dl (11.8-15.2) L 05/28/19 10:57 Hct 24.9 % (35.5-45.6) L 05/28/19 10:57 MCV 82 fl (84-94) L 05/28/19 10:57 MCH 26 pg (28-32) L 05/28/19 10:57 MCHC 32 % (32-34) 05/28/19 10:57 RDW 21.6 % (13.2-15.2) H 05/28/19 10:57 Plt Count 427 K/mm3 (140-440) 05/28/19 10:57 Lymph % (Auto) 7.5 % (13.4-35.0) L 05/28/19 10:57 [place] % (Auto) 7.8 % (0.0-7.3) H 05/28/19 10:57 Eos % (Auto) 4.2 % (0.0-4.3) 05/28/19 10:57 Baso % (Auto) 1.0 % (0.0-1.8) 05/28/19 10:57 Lymph # 0.9 K/mm3 (1.2-5.4) L 05/28/19 10:57 [place] # 0.9 K/mm3 (0.0-0.8) H 05/28/19 10:57 Eos # 0.5 K/mm3 (0.0-0.4) H 05/28/19 10:57 Baso # 0.1 K/mm3 (0.0-0.1) 05/28/19 10:57 Add Manual Diff Complete 03/21/19 06:30 Total Counted 100 03/21/19 06:30 Seg Neutrophils % 79.5 % (40.0-70.0) H 05/28/19 10:57 Seg Neuts % (Manual) 81.0 % (40.0-70.0) H 03/21/19 06:30 Band Neutrophils % 0 % 03/21/19 06:30 Lymphocytes % (Manual) 8.0 % (13.4-35.0) L 03/21/19 06:30 Reactive Lymphs % (Man) 0 % 03/21/19 06:30 Monocytes % (Manual) 1.0 % (0.0-7.3) 03/21/19 06:30 Eosinophils % (Manual) 8.0 % (0.0-4.3) H 03/21/19 06:30 Basophils % (Manual) 1.0 % (0.0-1.8) 03/21/19 06:30 Metamyelocytes % 1.0 % 03/21/19 06:30 Myelocytes % 0 % 03/21/19 06:30 Promyelocytes % 0 % 03/21/19 06:30 Blast Cells % 0 % 03/21/19 06:30 Nucleated RBC % Not Reportable 03/21/19 06:30 Seg Neutrophils # 9.1 K/mm3 (1.8-7.7) H 05/28/19 10:57 Seg Neutrophils # Man 6.7 K/mm3 (1.8-7.7) 03/21/19 06:30 Band Neutrophils # 0.0 K/mm3 03/21/19 06:30 Lymphocytes # (Manual) 0.7 K/mm3 (1.2-5.4) L 03/21/19 06:30 Abs React Lymphs (Man) 0.0 K/mm3 03/21/19 06:30 Monocytes # (Manual) 0.1 K/mm3 (0.0-0.8) 03/21/19 06:30 Eosinophils # (Manual) 0.7 K/mm3 (0.0-0.4) H 03/21/19 06:30 Basophils # (Manual) 0.1 K/mm3 (0.0-0.1) 03/21/19 06:30 Metamyelocytes # 0.1 K/mm3 03/21/19 06:30 Myelocytes # 0.0 K/mm3 03/21/19 06:30 Promyelocytes # 0.0 K/mm3 03/21/19 06:30 Blast Cells # 0.0 K/mm3 03/21/19 06:30 WBC Morphology Not Reportable 03/21/19 06:30 Hypersegmented Neuts Not Reportable 03/21/19 06:30 Hyposegmented Neuts Not Reportable 03/21/19 06:30 Hypogranular Neuts Not Reportable 03/21/19 06:30 Smudge Cells Not Reportable 03/21/19 06:30 Toxic Granulation Not Reportable 03/21/19 06:30 Toxic Vacuolation Not Reportable 03/21/19 06:30 Dohle Bodies Not Reportable 03/21/19 06:30 Pelger-Huet Anomaly Not Reportable 03/21/19 06:30 Tramaine Rods Not Reportable 03/21/19 06:30 Platelet Estimate Consistent w auto 03/21/19 06:30 Clumped Platelets Not Reportable 03/21/19 06:30 Plt Clumps, EDTA Not Reportable 03/21/19 06:30 Large Platelets Not Reportable 03/21/19 06:30 Giant Platelets Not Reportable 03/21/19 06:30 Platelet Satelliting Not Reportable 03/21/19 06:30 Plt Morphology Comment Not Reportable 03/21/19 06:30 RBC Morphology Not Reportable 03/21/19 06:30 Dimorphic RBCs Not Reportable 03/21/19 06:30 Polychromasia Not Reportable 03/21/19 06:30 Hypochromasia Few 03/21/19 06:30 Poikilocytosis Few 03/21/19 06:30 Anisocytosis Few 03/21/19 06:30 Microcytosis Not Reportable 03/21/19 06:30 Macrocytosis Not Reportable 03/21/19 06:30 Spherocytes Not Reportable 03/21/19 06:30 Pappenheimer Bodies Not Reportable 03/21/19 06:30 Sickle Cells Not Reportable 03/21/19 06:30 Target Cells 1+ 03/21/19 06:30 Tear Drop Cells Not Reportable 03/21/19 06:30 Ovalocytes Few 03/21/19 06:30 Helmet Cells Not Reportable 03/21/19 06:30 [place] Bodies Not Reportable 03/21/19 06:30 [place] Rings Not Reportable 03/21/19 06:30 [place] Cells Not Reportable 03/21/19 06:30 Bite Cells Not Reportable 03/21/19 06:30 Crenated Cell Not Reportable 03/21/19 06:30 Elliptocytes Not Reportable 03/21/19 06:30 Acanthocytes (Spur) Not Reportable 03/21/19 06:30 Rouleaux Not Reportable 03/21/19 06:30 Hemoglobin C Crystals Not Reportable 03/21/19 06:30 Schistocytes Not Reportable 03/21/19 06:30 Malaria parasites Not Reportable 03/21/19 06:30 Jose Juan Bodies Not Reportable 03/21/19 06:30 Hem Pathologist Commnt No 03/21/19 06:30 PT 16.3 Sec. (12.2-14.9) H 03/01/19 09:39 INR 1.35 (0.87-1.13) H 03/01/19 09:39 APTT 33.7 Sec. (24.2-36.6) 02/21/19 18:30 D-Dimer 2987.82 ng/mlDDU (0-234) H 02/22/19 05:54 POC ABG pH 7.510 (7.35-7.45) H 03/18/19 06:38 ABG pH 7.424 pH Units (7.350-7.450) 03/19/19 04:23 POC ABG pCO2 38.9 (35-45) 03/18/19 06:38 ABG pCO2 48.0 mm Hg 03/19/19 04:23 POC ABG pO2 164 (80-105) H 03/18/19 06:38 ABG pO2 78.3 mm Hg (80.0-90.0) L 03/19/19 04:23 POC ABG HCO3 31.0 (22-26 mml/L) 03/18/19 06:38 ABG HCO3 30.7 mmol/L (20.0-26.0) H 03/19/19 04:23 POC ABG Total CO2 32 (23-27mmol/L) 03/18/19 06:38 POC ABG O2 Sat 100 03/18/19 06:38 ABG O2 Saturation 97.0 % (95.0-99.0) 03/19/19 04:23 ABG O2 Content 7.9 (0.0-44) 03/19/19 04:23 POC ABG Base Excess 8 ((-2) - (+3)mmol/L) 03/18/19 06:38 ABG Base Excess 5.8 mmol/L (-2.0-3.0) H 03/19/19 04:23 ABG Hemoglobin 5.8 gm/dl (14.0-18.0) L 03/19/19 04:23 ABG Carboxyhemoglobin 2.0 % (0.0-5.0) 03/19/19 04:23 ABG Methemoglobin 0.4 % (0.0-1.5) 03/19/19 04:23 Oxyhemoglobin 94.6 % (95.0-99.0) L 03/19/19 04:23 FiO2 35 % 03/19/19 04:23 Sodium 137 mmol/L (137-145) 05/28/19 10:57 Potassium 3.6 mmol/L (3.6-5.0) 05/28/19 10:57 Chloride 94.0 mmol/L (98-107) L 05/28/19 10:57 Carbon Dioxide 28 mmol/L (22-30) 05/28/19 10:57 Anion Gap 19 mmol/L 05/28/19 10:57 BUN 53 mg/dL (9-20) H 05/28/19 10:57 Creatinine 2.9 mg/dL (0.8-1.5) H 05/28/19 10:57 Estimated GFR 27 ml/min 05/28/19 10:57 BUN/Creatinine Ratio 18 % 05/28/19 10:57 Glucose 147 mg/dL (75-100) H 05/28/19 10:57 POC Glucose 167 (70-105) H 05/31/19 11:29 Lactic Acid 1.00 mmol/L (0.7-2.0) 02/21/19 20:58 Calcium 10.2 mg/dL (8.4-10.2) 05/28/19 10:57 Phosphorus 2.60 mg/dL (2.5-4.5) 05/28/19 10:57 Magnesium 2.70 mg/dL (1.7-2.3) H 03/30/19 10:13 Iron 21 ug/dL (49-181) L 05/29/19 12:49 TIBC 78 mcg/dL (250-450) L 05/29/19 12:49 % Saturation 26.92 % 05/29/19 12:49 Transferrin 61 mg/dl (180-329) L 05/29/19 12:49 Ferritin 4009.0 ng/mL (13.0-400.0) H 05/29/19 12:49 Total Bilirubin 0.30 mg/dL (0.1-1.2) 05/28/19 10:57 AST 25 units/L (5-40) 05/28/19 10:57 ALT 25 units/L (7-56) 05/28/19 10:57 Alkaline Phosphatase 170 units/L (35-129) H 05/28/19 10:57 Ammonia 28.0 umol/L (25-60) 02/21/19 20:04 Total Creatine Kinase 64 units/L (55-170) 02/22/19 03:42 CK-MB (CK-2) 3.7 ng/mL (0.0-4.0) 02/22/19 03:42 CK-MB (CK-2) Rel Index 5.7 (0-4) H 02/22/19 03:42 Troponin T 0.193 ng/mL (0.00-0.029) H* 02/22/19 03:42 Total Protein 7.5 g/dL (6.3-8.2) 05/28/19 10:57 Albumin 2.2 g/dL (3.9-5) L 05/28/19 10:57 Albumin/Globulin Ratio 0.4 % 05/28/19 10:57 Triglycerides 51 mg/dL (2-149) 02/21/19 18:30 Cholesterol 82 mg/dL (50-199) 02/21/19 18:30 LDL Cholesterol Direct 36 mg/dL (50-130) L 02/21/19 18:30 HDL Cholesterol 40 mg/dL (40-59) 02/21/19 18:30 Cholesterol/HDL Ratio 2.05 % 02/21/19 18:30 TSH 2.760 mlU/mL (0.270-4.200) 02/21/19 20:04 PTH Intact 199.5 pg/mL (15-65) H 05/28/19 10:57 Salicylates < 0.3 mg/dL (2.8-20.0) L 02/21/19 20:04 Acetaminophen < 5.0 ug/mL (10.0-30.0) L 02/21/19 20:04 Hepatitis A IgM Ab Non-reactive (NonReactive) 05/28/19 16:57 Hep Bs Antigen Non-reactive (Negative) 05/28/19 16:57 Hep B Core IgM Ab Non-reactive (NonReactive) 05/28/19 16:57 Hepatitis C Antibody Non-reactive (NonReactive) 05/28/19 16:57 Blood Type O POSITIVE 05/04/19 12:55 Antibody Screen Negative 05/04/19 12:55 Crossmatch See Detail 05/04/19 12:55 Active Medications - Current Medications Current Medications: Generic Name Dose Route Start Last Admin Trade Name Freq PRN Reason Stop Dose Admin Acetaminophen 650 mg 05/18/19 23:33 05/28/19 16:57 Tylenol PO 650 mg Q6HR PRN Administration PAIN Albuterol/Ipratropium 1 ampul 02/24/19 20:00 05/31/19 08:05 Duoneb *Not For Prn Use* IH 1 ampul TIDRT SANCHEZ Administration Lipase/Protease/Amylase 1 each 04/10/19 15:16 Pancreaze 10,500 Unit FEEDTUBE PRN PRN For Clogged Feeding Tube Epoetin Solitario 20,000 unit 03/24/19 11:17 05/27/19 12:19 Procrit IV 20,000 unit UMA PRN Administration hemodialysis Famotidine 20 mg 02/23/19 10:00 05/31/19 09:18 Pepcid PO 20 mg DAILY SANCHEZ Administration Sodium Chloride 100 mls @ 999 mls/hr 05/13/19 12:45 Nacl 0.9% IV UMA PRN Hypotension Insulin Human Regular 0 units 02/26/19 12:00 05/31/19 12:40 Humulin R SUB-Q 1 units Q6HR SANCHEZ Administration Protocol Risperidone 1 mg 02/25/19 13:00 05/31/19 09:18 Risperdal PO 1 mg DAILY SANCHEZ Administration Sertraline HCl 100 mg 02/25/19 13:00 05/31/19 09:18 Zoloft PO 100 mg DAILY SANCHEZ Administration Simple Syrup 15 ml 04/10/19 15:16 Simple Syrup FEEDTUBE PRN PRN Hypoglycemia Simple Syrup 30 ml 04/10/19 15:16 Simple Syrup FEEDTUBE PRN PRN Hypoglycemia Sodium Bicarbonate 325 mg 04/10/19 15:16 Sodium Bicarbonate FEEDTUBE PRN PRN For Clogged Feeding Tube Sodium Hypochlorite 1 applic 04/01/19 13:00 05/31/19 09:19 Dakin's Half Strength TP 1 applicatio BID SANCHEZ Administration Nutrition/Malnutrition Assess - Dietary Evaluation Nutrition/Malnutrition Findings: Nutrition Notes Start: 02/22/19 12:51 Freq: Status: Active Protocol: Document 05/28/19 09:48 CT (Rec: 05/28/19 10:01 CT [id number]) Co-Sign 05/28/19 09:48 KH Nutrition Notes Initial or Follow up Reassessment Current Diagnosis CKD (stage V CKD),Diabetes, Hypertension,Heart Failure Other Pertinent Diagnosis Sacral PU, ESRD on HD (T/Thurs /Sat), Schizophrenia,Blind in L eye,S/P trach Current Diet Nepro at 50 ml/hr w/Abhilash BID Labs/Tests POC Glu 125 Pertinent Medications Humulin Height 5 ft 10 in Weight 68 kg [place] Body Weight (kg) 75.45 BMI 21.4 Weight change and time frame Wt loss noted. Likely d/t fluid change. Subjective/Other Information Observed Nepro infusing at goal rate. Per RN pt has been recieving Abhilash BID and has not recieved it today. Pt has not had any GI complications. Percent of energy/protein needs met: 100%/100% Burn Absent Trauma Absent Minimum of two criteria No physical signs of malnutrition #2 Nutrition Diagnosis Increased nutrient needs ( specify in comment below) Diagnosis Progress(for reassessment Continues documentation) #1 Nutrition Diagnosis Inadequate oral intake Diagnosis Progress(for reassessment Continues documentation) Is patient on ventilator? No Is Patient Ambulatory and/or Out of Bed No REE-([place]-St. Jeor-confined to bed) 1776.828 Kcal/Kg value to use for calculation 35 Approximate Energy Requirements Using 2380 kcal/Kg Calculation Used for Recommendations Kcal/kg Additional Notes Pro needs 82-102 g/day (1.2-1. 5 g/kg) Fluid per MD Nutrition Intervention Change Diet Order: Continue TF Nutrition Support: Nepro with Carbsteady 1.8 at 50 ml/hr Flush 200 ml q4hr Kcal 2,160 Protein (gm) 97 Fluid (mL) 872 Add Supplement/Snack (indicate name/kcal Abhilash BID /protein ) Provides kCal: 190 Provides Protein (gm) 5 Goal #1 Continue to meet at least 75% of calorie and protein needs via TF Anticipated Discharge Needs: TF Follow-Up By: 06/02/19 Additional Comments Follow up for TF tolerance, receiving Abhilash
[2019-05-31] MEDS: ACETAMINOPHEN 325 MG TAB PO PRN (21:20)
[2019-06-01] MEDS: INSULIN REGULAR, HUMAN 100 UNITS/1 ML SUB-Q SCH ×4 (00:57→18:18)
[2019-06-01] MEDS: ACETAMINOPHEN 325 MG TAB PO PRN (02:11)
[2019-06-01 06:15] LABS: Hemoglobin 6.1 gm/dl (11.8-15.2); Mean Corpuscular HGB Conc 32 % (32-34); Mean Corpuscular Volume 81 fl (84-94); Platelet Count 392 K/mm3 (140-440); Red Blood Count 2.37 M/mm3 (3.65-5.03)
[2019-06-01 06:22] LABS: Hematocrit 19.1 % (35.5-45.6); Red Cell Distribution Width 21.5 % (13.2-15.2)
[2019-06-01] MEDS ORDERED: SODIUM CHLORIDE 0.9% 500 ML 500 ML IV ONE (06:28)
--- NOTE | 2019-06-01 06:30 | Event Note ---
Date: 06/01/19 hgb 6.1 this am (down from 7.9) will Type & Screen and order 1U PRBC. Pt will require post transfusion labs.
[2019-06-01 06:39] LABS: Calcium 9.6 mg/dL (8.4-10.2)
--- NOTE | 2019-06-01 08:11 | Progress Note ---
Assessment and Plan Assessment and plan: Patient is a 63-year-old -[place] man from [facility] with a plethora of co-morbidities including blindness, CVA, CHF, PPM/ICD, loop recorder since 2012 that is MRI compatible, IDDM type 2, sepsis left foot ulcer, afib, ESRD with complications on HD MWF, hypertension, AOCD and GERD who presented to the ED with hypotensive after intubation in the emergency room. Still intubated, diagnosed with fluid overload, pleural effusion. Patient has had recurrent admission in the hospital for similar reason and was recently discharged from the hospital following treatment of Severe Sepsis due to Necrotizing Unstagable sacral decubitus ulcer with ostemomylitis. He has been admitted since the 02/21/2019. Trach and PEG was done Acute respiratory failure on mechanical ventilator >96 hrs Trach placed on 03/03/19 Pulm consult appreciated weaning trial VAP BUNDLE ASPIRATION BUNDLE Continue T-piece Finished therapy for Acinetobacter Acute pulmonary edema, fluid overload on CXR repeat xray intermittently Dialysis Necrotizing Unstagable sacral decubitus ulcer with ostemomyelitis Wound care, Dilated CMP Cardiomyiopathy EF 35-40% Continue diuresis PPM/ICD Acute encephalopathy, probably metabolic or toxic Continues on Mechanical ventilator. ESRD on hemodialysis nephrology following Vascular eval. done re: LUE AV graft, see note Bilateral pleural effusions Anticipate improvement with Permanent atrial fibrillation and flutter Not on anticoagulation because of anemia thrombocytopenia Change noted to BB agent to IV. Diabetes mellitus type 2 Fingerstick Q4h NSTEMI type 2 Cardiology following Schizophrenia continue home meds Legally blind supportive care hypertension Monitor BP Hypokalemia resolved Pulmonary hypertension by history Dysphagia s/p PEG tube Severe malnutrition/hypoalbuminemia with FTT: 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, rigger up following PEG placed on 01/02/19 Decubitus ulcer s/p colostomy wound care consult History of sacral osteomyelitis and LE ulcers Completed Antibiotics Place on contact isolation for ESBL Klebsiella pneumonia on wound culture 01/02/19 h/o Peripheral neuropathy: Continue gabapentin Anemia of chronic disease, with a drop in h/h again Transfuse 1 units of PRBC -s/p PRBC, follow cbc- no occult GI bleed noted. -Pt is s/p x1 DDVAP RUL atelectasis, nebs as needed DVT prophylaxis Lovenox DNR poor prognosis Disposition: Awaiting on SNF HD setup I spoke with his nephrew [place] Mims, Director of our Lab Plan is patient to go back to [facility] with contract in place for him to come here for Hemodialysis See ID note regarding further ABX transfuse 1 unit of PRBC today History Interval history: Patient was seen and examined. Follow-up on current diagnosis. No overnight events reported to me. Patient is mainly nonverbal. Imaging, nursing note, chart, labs and old chart reviewed. Hospitalist Physical - Physical exam Narrative exam: Gen: severely disable, nad, awake alert x 1 HEENT: pupils reactive, op dried out, mouth open Neck: supple, trach CVS/Heart: irreg irregular, normal S1S2, pulses present bilaterally Chest/Lungs: diminished bs ymmetrical chest expansion, good air entry bilaterally GI/Abdomen:peg, colostomy present,+bowel sounds, no guarding or rebound /Bladder: no suprapubic tenderness Extermity/Skin: contracted MSK: no FROM x 4 Neuro: CN 2-12 grossly intact except vision, no new focal deficits Psych: calm - Constitutional Vitals: Temp Pulse Resp BP Pulse Ox 98.8 F 98 H 20 88/52 99 06/01/19 05:51 06/01/19 05:51 06/01/19 05:51 06/01/19 05:51 06/01/19 05:51 General appearance: Present: no acute distress, other (T peace). Absent: well- nourished Results - Labs CBC & Chem 7: 06/01/19 Unknown 06/01/19 Unknown Labs: Laboratory Last Values WBC 10.0 K/mm3 (4.5-11.0) 06/01/19 Unknown RBC 2.37 M/mm3 (3.65-5.03) L 06/01/19 Unknown Hgb 6.1 gm/dl (11.8-15.2) L 06/01/19 Unknown Hct 19.1 % (35.5-45.6) L* 06/01/19 Unknown MCV 81 fl (84-94) L 06/01/19 Unknown MCH 26 pg (28-32) L 06/01/19 Unknown MCHC 32 % (32-34) 06/01/19 Unknown RDW 21.5 % (13.2-15.2) H 06/01/19 Unknown Plt Count 392 K/mm3 (140-440) 06/01/19 Unknown Lymph % (Auto) 7.5 % (13.4-35.0) L 05/28/19 10:57 [place] % (Auto) 7.8 % (0.0-7.3) H 05/28/19 10:57 Eos % (Auto) 4.2 % (0.0-4.3) 05/28/19 10:57 Baso % (Auto) 1.0 % (0.0-1.8) 05/28/19 10:57 Lymph # 0.9 K/mm3 (1.2-5.4) L 05/28/19 10:57 [place] # 0.9 K/mm3 (0.0-0.8) H 05/28/19 10:57 Eos # 0.5 K/mm3 (0.0-0.4) H 05/28/19 10:57 Baso # 0.1 K/mm3 (0.0-0.1) 05/28/19 10:57 Add Manual Diff Complete 03/21/19 06:30 Total Counted 100 03/21/19 06:30 Seg Neutrophils % 79.5 % (40.0-70.0) H 05/28/19 10:57 Seg Neuts % (Manual) 81.0 % (40.0-70.0) H 03/21/19 06:30 Band Neutrophils % 0 % 03/21/19 06:30 Lymphocytes % (Manual) 8.0 % (13.4-35.0) L 03/21/19 06:30 Reactive Lymphs % (Man) 0 % 03/21/19 06:30 Monocytes % (Manual) 1.0 % (0.0-7.3) 03/21/19 06:30 Eosinophils % (Manual) 8.0 % (0.0-4.3) H 03/21/19 06:30 Basophils % (Manual) 1.0 % (0.0-1.8) 03/21/19 06:30 Metamyelocytes % 1.0 % 03/21/19 06:30 Myelocytes % 0 % 03/21/19 06:30 Promyelocytes % 0 % 03/21/19 06:30 Blast Cells % 0 % 03/21/19 06:30 Nucleated RBC % Not Reportable 03/21/19 06:30 Seg Neutrophils # 9.1 K/mm3 (1.8-7.7) H 05/28/19 10:57 Seg Neutrophils # Man 6.7 K/mm3 (1.8-7.7) 03/21/19 06:30 Band Neutrophils # 0.0 K/mm3 03/21/19 06:30 Lymphocytes # (Manual) 0.7 K/mm3 (1.2-5.4) L 03/21/19 06:30 Abs React Lymphs (Man) 0.0 K/mm3 03/21/19 06:30 Monocytes # (Manual) 0.1 K/mm3 (0.0-0.8) 03/21/19 06:30 Eosinophils # (Manual) 0.7 K/mm3 (0.0-0.4) H 03/21/19 06:30 Basophils # (Manual) 0.1 K/mm3 (0.0-0.1) 03/21/19 06:30 Metamyelocytes # 0.1 K/mm3 03/21/19 06:30 Myelocytes # 0.0 K/mm3 03/21/19 06:30 Promyelocytes # 0.0 K/mm3 03/21/19 06:30 Blast Cells # 0.0 K/mm3 03/21/19 06:30 WBC Morphology Not Reportable 03/21/19 06:30 Hypersegmented Neuts Not Reportable 03/21/19 06:30 Hyposegmented Neuts Not Reportable 03/21/19 06:30 Hypogranular Neuts Not Reportable 03/21/19 06:30 Smudge Cells Not Reportable 03/21/19 06:30 Toxic Granulation Not Reportable 03/21/19 06:30 Toxic Vacuolation Not Reportable 03/21/19 06:30 Dohle Bodies Not Reportable 03/21/19 06:30 Pelger-Huet Anomaly Not Reportable 03/21/19 06:30 Tramaine Rods Not Reportable 03/21/19 06:30 Platelet Estimate Consistent w auto 03/21/19 06:30 Clumped Platelets Not Reportable 03/21/19 06:30 Plt Clumps, EDTA Not Reportable 03/21/19 06:30 Large Platelets Not Reportable 03/21/19 06:30 Giant Platelets Not Reportable 03/21/19 06:30 Platelet Satelliting Not Reportable 03/21/19 06:30 Plt Morphology Comment Not Reportable 03/21/19 06:30 RBC Morphology Not Reportable 03/21/19 06:30 Dimorphic RBCs Not Reportable 03/21/19 06:30 Polychromasia Not Reportable 03/21/19 06:30 Hypochromasia Few 03/21/19 06:30 Poikilocytosis Few 03/21/19 06:30 Anisocytosis Few 03/21/19 06:30 Microcytosis Not Reportable 03/21/19 06:30 Macrocytosis Not Reportable 03/21/19 06:30 Spherocytes Not Reportable 03/21/19 06:30 Pappenheimer Bodies Not Reportable 03/21/19 06:30 Sickle Cells Not Reportable 03/21/19 06:30 Target Cells 1+ 03/21/19 06:30 Tear Drop Cells Not Reportable 03/21/19 06:30 Ovalocytes Few 03/21/19 06:30 Helmet Cells Not Reportable 03/21/19 06:30 [place] Bodies Not Reportable 03/21/19 06:30 [place] Rings Not Reportable 03/21/19 06:30 [place] Cells Not Reportable 03/21/19 06:30 Bite Cells Not Reportable 03/21/19 06:30 Crenated Cell Not Reportable 03/21/19 06:30 Elliptocytes Not Reportable 03/21/19 06:30 Acanthocytes (Spur) Not Reportable 03/21/19 06:30 Rouleaux Not Reportable 03/21/19 06:30 Hemoglobin C Crystals Not Reportable 03/21/19 06:30 Schistocytes Not Reportable 03/21/19 06:30 Malaria parasites Not Reportable 03/21/19 06:30 Jose Juan Bodies Not Reportable 03/21/19 06:30 Hem Pathologist Commnt No 03/21/19 06:30 PT 16.3 Sec. (12.2-14.9) H 03/01/19 09:39 INR 1.35 (0.87-1.13) H 03/01/19 09:39 APTT 33.7 Sec. (24.2-36.6) 02/21/19 18:30 D-Dimer 2987.82 ng/mlDDU (0-234) H 02/22/19 05:54 POC ABG pH 7.510 (7.35-7.45) H 03/18/19 06:38 ABG pH 7.424 pH Units (7.350-7.450) 03/19/19 04:23 POC ABG pCO2 38.9 (35-45) 03/18/19 06:38 ABG pCO2 48.0 mm Hg 03/19/19 04:23 POC ABG pO2 164 (80-105) H 03/18/19 06:38 ABG pO2 78.3 mm Hg (80.0-90.0) L 03/19/19 04:23 POC ABG HCO3 31.0 (22-26 mml/L) 03/18/19 06:38 ABG HCO3 30.7 mmol/L (20.0-26.0) H 03/19/19 04:23 POC ABG Total CO2 32 (23-27mmol/L) 03/18/19 06:38 POC ABG O2 Sat 100 03/18/19 06:38 ABG O2 Saturation 97.0 % (95.0-99.0) 03/19/19 04:23 ABG O2 Content 7.9 (0.0-44) 03/19/19 04:23 POC ABG Base Excess 8 ((-2) - (+3)mmol/L) 03/18/19 06:38 ABG Base Excess 5.8 mmol/L (-2.0-3.0) H 03/19/19 04:23 ABG Hemoglobin 5.8 gm/dl (14.0-18.0) L 03/19/19 04:23 ABG Carboxyhemoglobin 2.0 % (0.0-5.0) 03/19/19 04:23 ABG Methemoglobin 0.4 % (0.0-1.5) 03/19/19 04:23 Oxyhemoglobin 94.6 % (95.0-99.0) L 03/19/19 04:23 FiO2 35 % 03/19/19 04:23 Sodium 135 mmol/L (137-145) L 06/01/19 Unknown Potassium 3.9 mmol/L (3.6-5.0) 06/01/19 Unknown Chloride 92.4 mmol/L (98-107) L 06/01/19 Unknown Carbon Dioxide 28 mmol/L (22-30) 06/01/19 Unknown Anion Gap 19 mmol/L 06/01/19 Unknown BUN 80 mg/dL (9-20) H 06/01/19 Unknown Creatinine 4.4 mg/dL (0.8-1.5) H D 06/01/19 Unknown Estimated GFR 16 ml/min 06/01/19 Unknown BUN/Creatinine Ratio 18 % 06/01/19 Unknown Glucose 121 mg/dL (75-100) H 06/01/19 Unknown POC Glucose 146 (70-105) H 06/01/19 06:00 Lactic Acid 1.00 mmol/L (0.7-2.0) 02/21/19 20:58 Calcium 9.6 mg/dL (8.4-10.2) 06/01/19 Unknown Phosphorus 2.60 mg/dL (2.5-4.5) 05/28/19 10:57 Magnesium 2.70 mg/dL (1.7-2.3) H 03/30/19 10:13 Iron 21 ug/dL (49-181) L 05/29/19 12:49 TIBC 78 mcg/dL (250-450) L 05/29/19 12:49 % Saturation 26.92 % 05/29/19 12:49 Transferrin 61 mg/dl (180-329) L 05/29/19 12:49 Ferritin 4009.0 ng/mL (13.0-400.0) H 05/29/19 12:49 Total Bilirubin 0.30 mg/dL (0.1-1.2) 05/28/19 10:57 AST 25 units/L (5-40) 05/28/19 10:57 ALT 25 units/L (7-56) 05/28/19 10:57 Alkaline Phosphatase 170 units/L (35-129) H 05/28/19 10:57 Ammonia 28.0 umol/L (25-60) 02/21/19 20:04 Total Creatine Kinase 64 units/L (55-170) 02/22/19 03:42 CK-MB (CK-2) 3.7 ng/mL (0.0-4.0) 02/22/19 03:42 CK-MB (CK-2) Rel Index 5.7 (0-4) H 02/22/19 03:42 Troponin T 0.193 ng/mL (0.00-0.029) H* 02/22/19 03:42 Total Protein 7.5 g/dL (6.3-8.2) 05/28/19 10:57 Albumin 2.2 g/dL (3.9-5) L 05/28/19 10:57 Albumin/Globulin Ratio 0.4 % 05/28/19 10:57 Triglycerides 51 mg/dL (2-149) 02/21/19 18:30 Cholesterol 82 mg/dL (50-199) 02/21/19 18:30 LDL Cholesterol Direct 36 mg/dL (50-130) L 02/21/19 18:30 HDL Cholesterol 40 mg/dL (40-59) 02/21/19 18:30 Cholesterol/HDL Ratio 2.05 % 02/21/19 18:30 TSH 2.760 mlU/mL (0.270-4.200) 02/21/19 20:04 PTH Intact 199.5 pg/mL (15-65) H 05/28/19 10:57 Salicylates < 0.3 mg/dL (2.8-20.0) L 02/21/19 20:04 Acetaminophen < 5.0 ug/mL (10.0-30.0) L 02/21/19 20:04 Hepatitis A IgM Ab Non-reactive (NonReactive) 05/28/19 16:57 Hep Bs Antigen Non-reactive (Negative) 05/28/19 16:57 Hep B Core IgM Ab Non-reactive (NonReactive) 05/28/19 16:57 Hepatitis C Antibody Non-reactive (NonReactive) 05/28/19 16:57 Blood Type O POSITIVE 06/01/19 06:45 Antibody Screen Negative 06/01/19 06:45 Crossmatch See Detail 06/01/19 06:45 Active Medications - Current Medications Current Medications: Generic Name Dose Route Start Last Admin Trade Name Freq PRN Reason Stop Dose Admin Acetaminophen 650 mg 05/18/19 23:33 06/01/19 02:11 Tylenol PO 650 mg Q6HR PRN Administration PAIN Albuterol/Ipratropium 1 ampul 02/24/19 20:00 05/31/19 20:35 Duoneb *Not For Prn Use* IH 1 ampul TIDRT SANCHEZ Administration Lipase/Protease/Amylase 1 each 04/10/19 15:[address] 10,500 Unit FEEDTUBE PRN PRN For Clogged Feeding Tube Epoetin Solitario 20,000 unit 03/24/19 11:17 05/27/19 12:19 Procrit IV 20,000 unit UMA PRN Administration hemodialysis Famotidine 20 mg 02/23/19 10:00 05/31/19 09:18 Pepcid PO 20 mg DAILY SANCHEZ Administration Sodium Chloride 100 mls @ 999 mls/hr 05/13/19 12:45 Nacl 0.9% IV UMA PRN Hypotension Insulin Human Regular 0 units 02/26/19 12:00 06/01/19 05:59 Humulin R SUB-Q Not Given Q6HR SANCHEZ Protocol Risperidone 1 mg 02/25/19 13:00 05/31/19 09:18 Risperdal PO 1 mg DAILY SANCHEZ Administration Sertraline HCl 100 mg 02/25/19 13:00 05/31/19 09:18 Zoloft PO 100 mg DAILY SANCHEZ Administration Simple Syrup 15 ml 04/10/19 15:16 Simple Syrup FEEDTUBE PRN PRN Hypoglycemia Simple Syrup 30 ml 04/10/19 15:16 Simple Syrup FEEDTUBE PRN PRN Hypoglycemia Sodium Bicarbonate 325 mg 04/10/19 15:16 Sodium Bicarbonate FEEDTUBE PRN PRN For Clogged Feeding Tube Sodium Hypochlorite 1 applic 04/01/19 13:00 05/31/19 21:22 Dakin's Half Strength TP 1 applicatio BID SANCHEZ Administration Nutrition/Malnutrition Assess - Dietary Evaluation Nutrition/Malnutrition Findings: Nutrition Notes Start: 02/22/19 12:51 Freq: Status: Active Protocol: Document 05/28/19 09:48 CT (Rec: 05/28/19 10:01 CT [id number]) Co-Sign 05/28/19 09:48 KH Nutrition Notes Initial or Follow up Reassessment Current Diagnosis CKD (stage V CKD),Diabetes, Hypertension,Heart Failure Other Pertinent Diagnosis Sacral PU, ESRD on HD (T/Thurs /Sat), Schizophrenia,Blind in L eye,S/P trach Current Diet Nepro at 50 ml/hr w/Abhilash BID Labs/Tests POC Glu 125 Pertinent Medications Humulin Height 5 ft 10 in Weight 68 kg [place] Body Weight (kg) 75.45 BMI 21.4 Weight change and time frame Wt loss noted. Likely d/t fluid change. Subjective/Other Information Observed Nepro infusing at goal rate. Per RN pt has been recieving Abhilash BID and has not recieved it today. Pt has not had any GI complications. Percent of energy/protein needs met: 100%/100% Burn Absent Trauma Absent Minimum of two criteria No physical signs of malnutrition #2 Nutrition Diagnosis Increased nutrient needs ( specify in comment below) Diagnosis Progress(for reassessment Continues documentation) #1 Nutrition Diagnosis Inadequate oral intake Diagnosis Progress(for reassessment Continues documentation) Is patient on ventilator? No Is Patient Ambulatory and/or Out of Bed No REE-([place]-confined to bed) 1776.828 Kcal/Kg value to use for calculation 35 Approximate Energy Requirements Using 2380 kcal/Kg Calculation Used for Recommendations Kcal/kg Additional Notes Pro needs 82-102 g/day (1.2-1. 5 g/kg) Fluid per MD Nutrition Intervention Change Diet Order: Continue TF Nutrition Support: Nepro with Carbsteady 1.8 at 50 ml/hr Flush 200 ml q4hr Kcal 2,160 Protein (gm) 97 Fluid (mL) 872 Add Supplement/Snack (indicate name/kcal Abhilash BID /protein ) Provides kCal: 190 Provides Protein (gm) 5 Goal #1 Continue to meet at least 75% of calorie and protein needs via TF Anticipated Discharge Needs: TF Follow-Up By: 06/02/19 Additional Comments Follow up for TF tolerance, receiving Abhilash
[2019-06-01] MEDS: IPRATROPIUM/ALBUTEROL SULFATE 3 ML AMPUL.NEB IH SCH ×3 (08:23→19:14)
--- NOTE | 2019-06-01 09:40 | Progress Note ---
Assessment and Plan Assessment: * End stage renal disease (outpatient TTS schedule) * Acute hypoxic respiratory failure s/p trach * s/p KEON pneumonia --Sputum cx: MDR Acinetobacter * Cardiomyopathy - EF 35-40% * Atrial fibrillation * History of CVA * Anemia secondary to ESRD * Secondary hyperparathyroidism * Decubitis ulcer Plan * Continue HD MWF via LUE AVG * ID following - recommendations appreciated * Nutrition per primary team * Dose medications for renal function * Epogen 20k TIW; will obtain iron stores at next dialysis treatment * PRBC 1u today with HD * Overall prognosis remains poor; family declines hospice; will continue to follow for ESRD needs while inpatient We will continue to follow patient for renal related issues. Thank you for this consult. Subjective Date of service: 06/01/19 Principal diagnosis: Respiratory failure, acute on chronic systolic HF, ESRD Interval history: Noted to have anemia with hemoglobin down to 6.1; also noted to have fever over past 48 hours. Has been tolerating HD sessions per HD nurses with minimal fluid removal. Patient remains at baseline poor mental status Objective - Exam Narrative Exam: General appearance: chronically ill, intubated, frail EENT: normocephalic Neck: trach collar in place Respiratory: coarse mechanical breath sounds bilaterally Cardiology: regular, S1S2, no edema Gastrointestinal: PEG and colostomy noted Integumentary: warm and dry Psychiatric: unable to assess - Vital Signs Vital signs: Vital Signs - 12hr 05/31/19 06/01/19 06/01/19 22:59 02:11 03:11 Temperature 97.4 F L Pulse Rate 98 H Pulse Rate [ Anterior Bilateral Throughout] Respiratory 19 18 18 Rate Respiratory Rate [Anterior Bilateral Throughout] Blood Pressure 113/53 O2 Sat by Pulse 99 Oximetry O2 Sat by Pulse Oximetry [ Assessment] 06/01/19 06/01/19 05:51 08:46 Temperature 98.8 F Pulse Rate 98 H Pulse Rate [ 113 H Anterior Bilateral Throughout] Respiratory 20 Rate Respiratory 20 Rate [Anterior Bilateral Throughout] Blood Pressure 88/52 O2 Sat by Pulse 99 Oximetry O2 Sat by Pulse 95 Oximetry [ Assessment] - Lab 06/01/19 Unknown 06/01/19 Unknown Most recent lab results ABG pH 7.424 pH Units (7.350-7.450) 03/19/19 04:23 ABG pCO2 48.0 mm Hg 03/19/19 04:23 ABG pO2 78.3 mm Hg (80.0-90.0) L 03/19/19 04:23 ABG HCO3 30.7 mmol/L (20.0-26.0) H 03/19/19 04:23 ABG O2 Saturation 97.0 % (95.0-99.0) 03/19/19 04:23 Calcium 9.6 mg/dL (8.4-10.2) 06/01/19 Unknown Phosphorus 2.60 mg/dL (2.5-4.5) 05/28/19 10:57 Magnesium 2.70 mg/dL (1.7-2.3) H 03/30/19 10:13 Medications & Allergies - Medications Allergies/Adverse Reactions: Allergies haloperidol [From Haldol] Adverse Reaction (Verified 03/13/18 12:10) Unknown haloperidol lactate [From Haldol] Adverse Reaction (Verified 03/13/18 12:10) Unknown Home Medications: Home Medications Medication Instructions Recorded Confirmed Last Taken Type risperiDONE [RisperDAL] 1 mg PO QAM 03/13/18 02/21/19 Unknown History Sertraline [Zoloft] 100 mg PO QDAY 08/26/18 02/21/19 Unknown History Polyethylene Glycol 3350 [Miralax 17 gm PO QDAY #30 packet 11/05/18 02/21/19 Unknown Rx 3350] Aspirin EC [Halfprin EC] 81 mg PO DAILY #30 11/19/18 02/21/19 Unknown Rx Docusate Sodium [Colace CAP] 100 mg PO BID #60 11/19/18 02/21/19 Unknown Rx Folic Acid [Folvite] 1 mg PO DAILY #30 tab 11/19/18 02/21/19 Unknown Rx Famotidine [Pepcid] 20 mg PO DAILY tablet 12/08/18 02/21/19 Unknown Rx Gabapentin 100 mg PO QHS capsule 12/08/18 02/21/19 Unknown Rx Metoprolol [Lopressor TAB] 50 mg PO BID 30 Days tablet 12/08/18 02/21/19 Unknown Rx Sevelamer Carbonate [Renvela] 800 mg PO TIDWM tablet 12/08/18 02/21/19 Unknown Rx hydrALAZINE [Apresoline TAB] 100 mg PO Q8HR #120 tablet 12/08/18 02/21/19 Unknown Rx Acetaminophen [Acetaminophen TAB] 650 mg PO Q12H PRN 12/15/18 02/21/19 Unknown History Glucagon,Human Recombinant 1 mg IJ Q15MIN PRN 12/15/18 02/21/19 Unknown History [Glucagon Emergency Kit] Insulin Aspart (Nf) [NovoLOG 100 See Protocol SQ QWEEK 12/15/18 02/21/19 Unknown History UNITS/ML VIAL] Active Medications: Generic Name Dose Route Start Last Admin Trade Name Ismael PRN Reason Stop Dose Admin Acetaminophen 650 mg 05/18/19 23:33 06/01/19 02:11 Tylenol PO 650 mg Q6HR PRN Administration PAIN Albuterol/Ipratropium 1 ampul 02/24/19 20:00 06/01/19 08:23 Duoneb *Not For Prn Use* IH 1 ampul TIDRT SANCHEZ Administration Lipase/Protease/Amylase 1 each 04/10/19 15:16 Pancreaze 10,500 Unit FEEDTUBE PRN PRN For Clogged Feeding Tube Epoetin Solitario 20,000 unit 03/24/19 11:17 05/27/19 12:19 Procrit IV 20,000 unit UMA PRN Administration hemodialysis Famotidine 20 mg 02/23/19 10:00 05/31/19 09:18 Pepcid PO 20 mg DAILY SANCHEZ Administration Sodium Chloride 100 mls @ 999 mls/hr 05/13/19 12:45 Nacl 0.9% IV UMA PRN Hypotension Insulin Human Regular 0 units 02/26/19 12:00 06/01/19 05:59 Humulin R SUB-Q Not Given Q6HR [facility] Protocol Risperidone 1 mg 02/25/19 13:00 05/31/19 09:18 Risperdal PO 1 mg DAILY SANCHEZ Administration Sertraline HCl 100 mg 02/25/19 13:00 05/31/19 09:18 Zoloft PO 100 mg DAILY SANCHEZ Administration Simple Syrup 15 ml 04/10/19 15:16 Simple Syrup FEEDTUBE PRN PRN Hypoglycemia Simple Syrup 30 ml 04/10/19 15:16 Simple Syrup FEEDTUBE PRN PRN Hypoglycemia Sodium Bicarbonate 325 mg 04/10/19 15:16 Sodium Bicarbonate FEEDTUBE PRN PRN For Clogged Feeding Tube Sodium Hypochlorite 1 applic 04/01/19 13:00 05/31/19 21:22 Lukasin's Half Strength TP 1 applicatio BID SANCHEZ Administration
--- NOTE | 2019-06-01 10:51 | Progress Note ---
Assessment and Plan 63 y/o male with multiple medical issues admitted with altered mental status, acute respiratory failure requiring mechanical ventilation, now trached, on HD unable to find placement given this combination, now with recurrent fevers. No new recommendations for today. Please see below 1. Continue capping trials. Nasal cannula therapy. 2. HD per renal 3. PT/OT if possible 4. CM working on placement 5. No objection to discharge once placement is found Agree with ID note. Patient is a DNR. He is not to be placed back on the ventilator. Acetinetobacter was seen in lungs last time, most likely could resurface their again. Remainder for those who are not as familiar with this case. Patient has been in the hospital on this particular stay over 3 months. Subjective Date of service: 06/01/19 Principal diagnosis: Respiratory failure, acute on chronic systolic HF, ESRD Interval history: No acute events. Objective Vital Signs - 12hr 05/31/19 06/01/19 06/01/19 22:59 02:11 03:11 Temperature 97.4 F L Pulse Rate 98 H Pulse Rate [ Anterior Bilateral Throughout] Respiratory 19 18 18 Rate Respiratory Rate [Anterior Bilateral Throughout] Blood Pressure 113/53 O2 Sat by Pulse 99 Oximetry O2 Sat by Pulse Oximetry [ Assessment] 06/01/19 06/01/19 06/01/19 05:51 08:46 09:30 Temperature 98.8 F Pulse Rate 98 H 107 H Pulse Rate [ 113 H Anterior Bilateral Throughout] Respiratory 20 Rate Respiratory 20 Rate [Anterior Bilateral Throughout] Blood Pressure 88/52 122/58 O2 Sat by Pulse 99 Oximetry O2 Sat by Pulse 95 Oximetry [ Assessment] 06/01/19 06/01/19 06/01/19 09:55 10:00 10:15 Temperature 100.4 F H 100.2 F H Pulse Rate 98 H 107 H 104 H Pulse Rate [ Anterior Bilateral Throughout] Respiratory 20 20 Rate Respiratory Rate [Anterior Bilateral Throughout] Blood Pressure 122/58 116/54 121/59 O2 Sat by Pulse 99 99 Oximetry O2 Sat by Pulse Oximetry [ Assessment] 06/01/19 06/01/19 10:30 10:40 Temperature 100.2 F H Pulse Rate 102 H 102 H Pulse Rate [ Anterior Bilateral Throughout] Respiratory 20 Rate Respiratory Rate [Anterior Bilateral Throughout] Blood Pressure 100/57 100/57 O2 Sat by Pulse Oximetry O2 Sat by Pulse Oximetry [ Assessment] Constitutional: no acute distress, alert Eyes: non-icteric ENT: oropharynx moist Neck: supple Effort: normal Ascultation: Bilateral: diminished breath sounds, other (coarse BS bilaterally) Percussion: Bilateral: not dull Cardiovascular: regular rate and rhythm (no mrg) Gastrointestinal: normoactive bowel sounds, soft, non-tender, non-distended, other (ostomy in place, brown stool) Extremities: no cyanosis, no edema, pink and warm Neurologic: other (mild weakness LUE, o/w nonfocal) Psychiatric: other (unable to assess) CBC and BMP: 06/01/19 Unknown 06/01/19 Unknown ABG, PT/INR, D-dimer: ABG POC ABG pH 7.510 (7.35-7.45) H 03/18/19 06:38 ABG pH 7.424 pH Units (7.350-7.450) 03/19/19 04:23 POC ABG pCO2 38.9 (35-45) 03/18/19 06:38 ABG pCO2 48.0 mm Hg 03/19/19 04:23 POC ABG pO2 164 (80-105) H 03/18/19 06:38 ABG pO2 78.3 mm Hg (80.0-90.0) L 03/19/19 04:23 POC ABG HCO3 31.0 (22-26 mml/L) 03/18/19 06:38 POC ABG Total CO2 32 (23-27mmol/L) 03/18/19 06:38 POC ABG O2 Sat 100 03/18/19 06:38 ABG O2 Saturation 97.0 % (95.0-99.0) 03/19/19 04:23 PT/INR, D-dimer PT 16.3 Sec. (12.2-14.9) H 03/01/19 09:39 INR 1.35 (0.87-1.13) H 03/01/19 09:39 D-Dimer 2987.82 ng/mlDDU (0-234) H 02/22/19 05:54 Abnormal lab findings: Abnormal Labs 02/21/19 02/21/19 02/21/19 18:30 18:30 18:30 WBC RBC 3.26 L Hgb 8.8 L Hct 29.0 L MCV MCH 27 L MCHC 30 L RDW 19.1 H Plt Count Lymph % (Auto) 6.1 L Saunders % (Auto) Eos % (Auto) Baso % (Auto) Lymph # 0.4 L Saunders # Eos # Baso # Seg Neutrophils % 86.2 H Seg Neuts % (Manual) Lymphocytes % (Manual) Eosinophils % (Manual) Seg Neutrophils # Lymphocytes # (Manual) Eosinophils # (Manual) PT INR D-Dimer POC ABG pH POC ABG pCO2 POC ABG pO2 ABG pO2 ABG HCO3 ABG Base Excess ABG Hemoglobin Oxyhemoglobin Sodium 133 L Potassium 3.3 L Chloride 93.1 L Carbon Dioxide 33 H BUN Creatinine Glucose 161 H POC Glucose Calcium Phosphorus Magnesium Iron TIBC Transferrin Ferritin ALT Alkaline Phosphatase 136 H Total Creatine Kinase 37 L CK-MB (CK-2) Rel Index Troponin T 0.192 H* Albumin 2.4 L LDL Cholesterol Direct 36 L PTH Intact Salicylates Acetaminophen Crossmatch 02/21/19 02/21/19 02/21/19 18:42 20:04 20:04 WBC RBC Hgb Hct MCV MCH MCHC RDW Plt Count Lymph % (Auto) Saunders % (Auto) Eos % (Auto) Baso % (Auto) Lymph # Saunders # Eos # Baso # Seg Neutrophils % Seg Neuts % (Manual) Lymphocytes % (Manual) Eosinophils % (Manual) Seg Neutrophils # Lymphocytes # (Manual) Eosinophils # (Manual) PT INR D-Dimer POC ABG pH POC ABG pCO2 56.7 H POC ABG pO2 291 H ABG pO2 ABG HCO3 ABG Base Excess ABG Hemoglobin Oxyhemoglobin Sodium Potassium Chloride Carbon Dioxide BUN Creatinine Glucose POC Glucose Calcium Phosphorus Magnesium Iron TIBC Transferrin Ferritin ALT Alkaline Phosphatase Total Creatine Kinase CK-MB (CK-2) Rel Index Troponin T Albumin LDL Cholesterol Direct PTH Intact Salicylates < 0.3 L Acetaminophen < 5.0 L Crossmatch 02/21/19 02/22/19 02/22/19 22:35 03:42 03:42 WBC RBC 3.20 L Hgb 8.8 L Hct 27.6 L MCV MCH MCHC RDW 18.9 H Plt Count Lymph % (Auto) 7.4 L Saunders % (Auto) Eos % (Auto) Baso % (Auto) Lymph # 0.7 L Saunders # Eos # Baso # Seg Neutrophils % 84.7 H Seg Neuts % (Manual) Lymphocytes % (Manual) Eosinophils % (Manual) Seg Neutrophils # Lymphocytes # (Manual) Eosinophils # (Manual) PT INR D-Dimer POC ABG pH POC ABG pCO2 POC ABG pO2 ABG pO2 ABG HCO3 ABG Base Excess ABG Hemoglobin Oxyhemoglobin Sodium 134 L Potassium 2.6 L* D Chloride Carbon Dioxide BUN Creatinine Glucose POC Glucose Calcium Phosphorus Magnesium Iron TIBC Transferrin Ferritin ALT Alkaline Phosphatase Total Creatine Kinase CK-MB (CK-2) Rel Index 5.2 H Troponin T 0.202 H* Albumin LDL Cholesterol Direct PTH Intact Salicylates Acetaminophen Crossmatch 02/22/19 02/22/19 02/22/19 03:42 05:54 09:04 WBC RBC Hgb Hct MCV MCH MCHC RDW Plt Count Lymph % (Auto) Saunders % (Auto) Eos % (Auto) Baso % (Auto) Lymph # Saunders # Eos # Baso # Seg Neutrophils % Seg Neuts % (Manual) Lymphocytes % (Manual) Eosinophils % (Manual) Seg Neutrophils # Lymphocytes # (Manual) Eosinophils # (Manual) PT INR D-Dimer 2987.82 H POC ABG pH 7.451 H POC ABG pCO2 POC ABG pO2 ABG pO2 ABG HCO3 ABG Base Excess ABG Hemoglobin Oxyhemoglobin Sodium Potassium Chloride Carbon Dioxide BUN Creatinine Glucose POC Glucose Calcium Phosphorus Magnesium Iron TIBC Transferrin Ferritin ALT Alkaline Phosphatase Total Creatine Kinase CK-MB (CK-2) Rel Index 5.7 H Troponin T 0.193 H* Albumin LDL Cholesterol Direct PTH Intact Salicylates Acetaminophen Crossmatch 02/22/19 02/22/19 02/23/19 10:36 23:56 00:52 WBC RBC Hgb Hct MCV MCH MCHC RDW Plt Count Lymph % (Auto) Saunders % (Auto) Eos % (Auto) Baso % (Auto) Lymph # Saunders # Eos # Baso # Seg Neutrophils % Seg Neuts % (Manual) Lymphocytes % (Manual) Eosinophils % (Manual) Seg Neutrophils # Lymphocytes # (Manual) Eosinophils # (Manual) PT INR D-Dimer POC ABG pH POC ABG pCO2 POC ABG pO2 ABG pO2 ABG HCO3 ABG Base Excess ABG Hemoglobin Oxyhemoglobin Sodium Potassium 3.1 L Chloride Carbon Dioxide BUN Creatinine Glucose POC Glucose 58 L 111 H Calcium Phosphorus Magnesium Iron TIBC Transferrin Ferritin ALT Alkaline Phosphatase Total Creatine Kinase CK-MB (CK-2) Rel Index Troponin T Albumin LDL Cholesterol Direct PTH Intact Salicylates Acetaminophen Crossmatch 02/23/19 02/23/19 02/23/19 05:00 06:35 14:26 WBC RBC Hgb Hct MCV MCH MCHC RDW Plt Count Lymph % (Auto) Saunders % (Auto) Eos % (Auto) Baso % (Auto) Lymph # Saunders # Eos # Baso # Seg Neutrophils % Seg Neuts % (Manual) Lymphocytes % (Manual) Eosinophils % (Manual) Seg Neutrophils # Lymphocytes # (Manual) Eosinophils # (Manual) PT INR D-Dimer POC ABG pH POC ABG pCO2 POC ABG pO2 ABG pO2 ABG HCO3 ABG Base Excess ABG Hemoglobin Oxyhemoglobin Sodium 135 L Potassium 3.1 L Chloride Carbon Dioxide BUN 21 H Creatinine 2.0 H Glucose 57 L POC Glucose 64 L 62 L Calcium Phosphorus Magnesium Iron TIBC Transferrin Ferritin ALT Alkaline Phosphatase Total Creatine Kinase CK-MB (CK-2) Rel Index Troponin T Albumin LDL Cholesterol Direct PTH Intact Salicylates Acetaminophen Crossmatch 02/24/19 02/24/19 02/24/19 02:11 04:12 04:55 WBC RBC 2.84 L Hgb 7.8 L Hct 24.5 L MCV MCH MCHC RDW 19.5 H Plt Count Lymph % (Auto) Saunders % (Auto) Eos % (Auto) Baso % (Auto) Lymph # Saunders # Eos # Baso # Seg Neutrophils % Seg Neuts % (Manual) Lymphocytes % (Manual) Eosinophils % (Manual) Seg Neutrophils # Lymphocytes # (Manual) Eosinophils # (Manual) PT INR D-Dimer POC ABG pH 7.511 H POC ABG pCO2 33.9 L POC ABG pO2 62 L ABG pO2 ABG HCO3 ABG Base Excess ABG Hemoglobin Oxyhemoglobin Sodium Potassium Chloride Carbon Dioxide BUN Creatinine Glucose POC Glucose 69 L Calcium Phosphorus Magnesium Iron TIBC Transferrin Ferritin ALT Alkaline Phosphatase Total Creatine Kinase CK-MB (CK-2) Rel Index Troponin T Albumin LDL Cholesterol Direct PTH Intact Salicylates Acetaminophen Crossmatch 02/24/19 02/24/19 02/25/19 04:55 05:41 04:45 WBC RBC Hgb Hct MCV MCH MCHC RDW Plt Count Lymph % (Auto) Saunders % (Auto) Eos % (Auto) Baso % (Auto) Lymph # Saunders # Eos # Baso # Seg Neutrophils % Seg Neuts % (Manual) Lymphocytes % (Manual) Eosinophils % (Manual) Seg Neutrophils # Lymphocytes # (Manual) Eosinophils # (Manual) PT INR D-Dimer POC ABG pH 7.466 H POC ABG pCO2 POC ABG pO2 75 L ABG pO2 ABG HCO3 ABG Base Excess ABG Hemoglobin Oxyhemoglobin Sodium Potassium Chloride Carbon Dioxide BUN Creatinine 1.8 H Glucose 73 L POC Glucose 127 H Calcium Phosphorus Magnesium Iron TIBC Transferrin Ferritin ALT Alkaline Phosphatase Total Creatine Kinase CK-MB (CK-2) Rel Index Troponin T Albumin LDL Cholesterol Direct PTH Intact Salicylates Acetaminophen Crossmatch 02/25/19 02/25/19 02/26/19 16:34 21:33 03:45 WBC RBC 2.96 L Hgb 8.0 L Hct 25.8 L MCV MCH 27 L MCHC 31 L RDW 20.0 H Plt Count Lymph % (Auto) Saunders % (Auto) Eos % (Auto) Baso % (Auto) Lymph # Saunders # Eos # Baso # Seg Neutrophils % Seg Neuts % (Manual) Lymphocytes % (Manual) Eosinophils % (Manual) Seg Neutrophils # Lymphocytes # (Manual) Eosinophils # (Manual) PT INR D-Dimer POC ABG pH POC ABG pCO2 POC ABG pO2 ABG pO2 ABG HCO3 ABG Base Excess ABG Hemoglobin Oxyhemoglobin Sodium Potassium Chloride Carbon Dioxide BUN Creatinine Glucose POC Glucose 141 H 106 H Calcium Phosphorus Magnesium Iron TIBC Transferrin Ferritin ALT Alkaline Phosphatase Total Creatine Kinase CK-MB (CK-2) Rel Index Troponin T Albumin LDL Cholesterol Direct PTH Intact Salicylates Acetaminophen Crossmatch 02/26/19 02/26/19 02/26/19 03:45 04:13 07:53 WBC RBC Hgb Hct MCV MCH MCHC RDW Plt Count Lymph % (Auto) Saunders % (Auto) Eos % (Auto) Baso % (Auto) Lymph # Saunders # Eos # Baso # Seg Neutrophils % Seg Neuts % (Manual) Lymphocytes % (Manual) Eosinophils % (Manual) Seg Neutrophils # Lymphocytes # (Manual) Eosinophils # (Manual) PT INR D-Dimer POC ABG pH 7.470 H POC ABG pCO2 POC ABG pO2 ABG pO2 ABG HCO3 ABG Base Excess ABG Hemoglobin Oxyhemoglobin Sodium Potassium Chloride Carbon Dioxide BUN Creatinine 1.8 H Glucose POC Glucose 110 H Calcium Phosphorus Magnesium Iron TIBC Transferrin Ferritin ALT Alkaline Phosphatase Total Creatine Kinase CK-MB (CK-2) Rel Index Troponin T Albumin LDL Cholesterol Direct PTH Intact Salicylates Acetaminophen Crossmatch 02/26/19 02/26/19 02/27/19 11:56 17:43 00:12 WBC RBC Hgb Hct MCV MCH MCHC RDW Plt Count Lymph % (Auto) Saunders % (Auto) Eos % (Auto) Baso % (Auto) Lymph # Saunders # Eos # Baso # Seg Neutrophils % Seg Neuts % (Manual) Lymphocytes % (Manual) Eosinophils % (Manual) Seg Neutrophils # Lymphocytes # (Manual) Eosinophils # (Manual) PT INR D-Dimer POC ABG pH POC ABG pCO2 POC ABG pO2 ABG pO2 ABG HCO3 ABG Base Excess ABG Hemoglobin Oxyhemoglobin Sodium Potassium Chloride Carbon Dioxide BUN Creatinine Glucose POC Glucose 112 H 127 H 127 H Calcium Phosphorus Magnesium Iron TIBC Transferrin Ferritin ALT Alkaline Phosphatase Total Creatine Kinase CK-MB (CK-2) Rel Index Troponin T Albumin LDL Cholesterol Direct PTH Intact Salicylates Acetaminophen Crossmatch 02/27/19 02/27/19 02/27/19 04:35 13:15 18:02 WBC RBC Hgb Hct MCV MCH MCHC RDW Plt Count Lymph % (Auto) Saunders % (Auto) Eos % (Auto) Baso % (Auto) Lymph # Saunders # Eos # Baso # Seg Neutrophils % Seg Neuts % (Manual) Lymphocytes % (Manual) Eosinophils % (Manual) Seg Neutrophils # Lymphocytes # (Manual) Eosinophils # (Manual) PT INR D-Dimer POC ABG pH 7.483 H POC ABG pCO2 POC ABG pO2 61 L ABG pO2 ABG HCO3 ABG Base Excess ABG Hemoglobin Oxyhemoglobin Sodium Potassium Chloride Carbon Dioxide BUN Creatinine Glucose POC Glucose 143 H 106 H Calcium Phosphorus Magnesium Iron TIBC Transferrin Ferritin ALT Alkaline Phosphatase Total Creatine Kinase CK-MB (CK-2) Rel Index Troponin T Albumin LDL Cholesterol Direct PTH Intact Salicylates Acetaminophen Crossmatch 02/28/19 02/28/19 02/28/19 05:50 11:59 17:52 WBC RBC Hgb Hct MCV MCH MCHC RDW Plt Count Lymph % (Auto) Saunders % (Auto) Eos % (Auto) Baso % (Auto) Lymph # Saunders # Eos # Baso # Seg Neutrophils % Seg Neuts % (Manual) Lymphocytes % (Manual) Eosinophils % (Manual) Seg Neutrophils # Lymphocytes # (Manual) Eosinophils # (Manual) PT INR D-Dimer POC ABG pH POC ABG pCO2 POC ABG pO2 ABG pO2 ABG HCO3 ABG Base Excess ABG Hemoglobin Oxyhemoglobin Sodium Potassium Chloride Carbon Dioxide BUN Creatinine Glucose POC Glucose 134 H 128 H 142 H Calcium Phosphorus Magnesium Iron TIBC Transferrin Ferritin ALT Alkaline Phosphatase Total Creatine Kinase CK-MB (CK-2) Rel Index Troponin T Albumin LDL Cholesterol Direct PTH Intact Salicylates Acetaminophen Crossmatch 02/28/19 03/01/19 03/01/19 23:13 05:40 09:39 WBC RBC Hgb Hct MCV MCH MCHC RDW Plt Count Lymph % (Auto) Saunders % (Auto) Eos % (Auto) Baso % (Auto) Lymph # Saunders # Eos # Baso # Seg Neutrophils % Seg Neuts % (Manual) Lymphocytes % (Manual) Eosinophils % (Manual) Seg Neutrophils # Lymphocytes # (Manual) Eosinophils # (Manual) PT 16.3 H INR 1.35 H D-Dimer POC ABG pH POC ABG pCO2 POC ABG pO2 ABG pO2 ABG HCO3 ABG Base Excess ABG Hemoglobin Oxyhemoglobin Sodium Potassium Chloride Carbon Dioxide BUN Creatinine Glucose POC Glucose 112 H 111 H Calcium Phosphorus Magnesium Iron TIBC Transferrin Ferritin ALT Alkaline Phosphatase Total Creatine Kinase CK-MB (CK-2) Rel Index Troponin T Albumin LDL Cholesterol Direct PTH Intact Salicylates Acetaminophen Crossmatch 03/01/19 03/01/19 03/01/19 11:56 13:54 17:59 WBC RBC Hgb Hct MCV MCH MCHC RDW Plt Count Lymph % (Auto) Saunders % (Auto) Eos % (Auto) Baso % (Auto) Lymph # Saunders # Eos # Baso # Seg Neutrophils % Seg Neuts % (Manual) Lymphocytes % (Manual) Eosinophils % (Manual) Seg Neutrophils # Lymphocytes # (Manual) Eosinophils # (Manual) PT INR D-Dimer POC ABG pH POC ABG pCO2 POC ABG pO2 ABG pO2 ABG HCO3 ABG Base Excess ABG Hemoglobin Oxyhemoglobin Sodium Potassium Chloride Carbon Dioxide BUN 33 H Creatinine 2.8 H D Glucose 176 H POC Glucose 199 H 147 H Calcium Phosphorus Magnesium Iron TIBC Transferrin Ferritin ALT Alkaline Phosphatase Total Creatine Kinase CK-MB (CK-2) Rel Index Troponin T Albumin LDL Cholesterol Direct PTH Intact Salicylates Acetaminophen Crossmatch 03/02/19 03/02/19 03/02/19 05:15 05:15 05:15 WBC RBC 2.73 L Hgb 7.4 L Hct 23.0 L MCV MCH 27 L MCHC RDW 19.9 H Plt Count Lymph % (Auto) Saunders % (Auto) 7.9 H Eos % (Auto) 7.6 H Baso % (Auto) Lymph # 1.0 L Saunders # Eos # 0.5 H Baso # Seg Neutrophils % Seg Neuts % (Manual) Lymphocytes % (Manual) Eosinophils % (Manual) Seg Neutrophils # Lymphocytes # (Manual) Eosinophils # (Manual) PT INR D-Dimer POC ABG pH POC ABG pCO2 POC ABG pO2 ABG pO2 ABG HCO3 ABG Base Excess ABG Hemoglobin Oxyhemoglobin Sodium Potassium Chloride Carbon Dioxide BUN 43 H Creatinine 3.2 H Glucose POC Glucose Calcium Phosphorus 2.30 L Magnesium Iron TIBC Transferrin Ferritin ALT Alkaline Phosphatase Total Creatine Kinase CK-MB (CK-2) Rel Index Troponin T Albumin LDL Cholesterol Direct PTH Intact 267.6 H Salicylates Acetaminophen Crossmatch 03/02/19 03/02/19 03/03/19 12:32 18:20 13:30 WBC RBC Hgb Hct MCV MCH MCHC RDW Plt Count Lymph % (Auto) Saunders % (Auto) Eos % (Auto) Baso % (Auto) Lymph # Saunders # Eos # Baso # Seg Neutrophils % Seg Neuts % (Manual) Lymphocytes % (Manual) Eosinophils % (Manual) Seg Neutrophils # Lymphocytes # (Manual) Eosinophils # (Manual) PT INR D-Dimer POC ABG pH POC ABG pCO2 POC ABG pO2 ABG pO2 ABG HCO3 ABG Base Excess ABG Hemoglobin Oxyhemoglobin Sodium Potassium Chloride 97.3 L Carbon Dioxide BUN 26 H Creatinine 2.2 H Glucose 73 L POC Glucose 111 H 156 H Calcium Phosphorus Magnesium Iron TIBC Transferrin Ferritin ALT Alkaline Phosphatase Total Creatine Kinase CK-MB (CK-2) Rel Index Troponin T Albumin LDL Cholesterol Direct PTH Intact Salicylates Acetaminophen Crossmatch 03/04/19 03/04/19 03/04/19 00:02 05:37 05:40 WBC RBC 2.63 L Hgb 7.2 L Hct 22.2 L MCV MCH MCHC RDW 20.2 H Plt Count Lymph % (Auto) 10.5 L Saunders % (Auto) Eos % (Auto) 4.6 H Baso % (Auto) Lymph # 0.7 L Saunders # Eos # Baso # Seg Neutrophils % 76.9 H Seg Neuts % (Manual) Lymphocytes % (Manual) Eosinophils % (Manual) Seg Neutrophils # Lymphocytes # (Manual) Eosinophils # (Manual) PT INR D-Dimer POC ABG pH POC ABG pCO2 POC ABG pO2 ABG pO2 ABG HCO3 ABG Base Excess ABG Hemoglobin Oxyhemoglobin Sodium Potassium Chloride Carbon Dioxide BUN Creatinine Glucose POC Glucose 136 H 123 H Calcium Phosphorus Magnesium Iron TIBC Transferrin Ferritin ALT Alkaline Phosphatase Total Creatine Kinase CK-MB (CK-2) Rel Index Troponin T Albumin LDL Cholesterol Direct PTH Intact Salicylates Acetaminophen Crossmatch 03/04/19 03/04/19 03/04/19 05:40 11:39 23:20 WBC RBC Hgb Hct MCV MCH MCHC RDW Plt Count Lymph % (Auto) Saunders % (Auto) Eos % (Auto) Baso % (Auto) Lymph # Saunders # Eos # Baso # Seg Neutrophils % Seg Neuts % (Manual) Lymphocytes % (Manual) Eosinophils % (Manual) Seg Neutrophils # Lymphocytes # (Manual) Eosinophils # (Manual) PT INR D-Dimer POC ABG pH POC ABG pCO2 POC ABG pO2 ABG pO2 ABG HCO3 ABG Base Excess ABG Hemoglobin Oxyhemoglobin Sodium Potassium Chloride Carbon Dioxide BUN 34 H Creatinine 2.7 H Glucose 114 H POC Glucose 175 H 151 H Calcium Phosphorus Magnesium Iron TIBC Transferrin Ferritin ALT Alkaline Phosphatase Total Creatine Kinase CK-MB (CK-2) Rel Index Troponin T Albumin LDL Cholesterol Direct PTH Intact Salicylates Acetaminophen Crossmatch 03/05/19 03/05/19 03/05/19 05:37 12:08 17:11 WBC RBC Hgb Hct MCV MCH MCHC RDW Plt Count Lymph % (Auto) Saunders % (Auto) Eos % (Auto) Baso % (Auto) Lymph # Saunders # Eos # Baso # Seg Neutrophils % Seg Neuts % (Manual) Lymphocytes % (Manual) Eosinophils % (Manual) Seg Neutrophils # Lymphocytes # (Manual) Eosinophils # (Manual) PT INR D-Dimer POC ABG pH POC ABG pCO2 POC ABG pO2 ABG pO2 ABG HCO3 ABG Base Excess ABG Hemoglobin Oxyhemoglobin Sodium Potassium Chloride Carbon Dioxide BUN Creatinine Glucose POC Glucose 134 H 135 H 135 H Calcium Phosphorus Magnesium Iron TIBC Transferrin Ferritin ALT Alkaline Phosphatase Total Creatine Kinase CK-MB (CK-2) Rel Index Troponin T Albumin LDL Cholesterol Direct PTH Intact Salicylates Acetaminophen Crossmatch 03/06/19 03/06/19 03/06/19 00:16 13:05 18:09 WBC RBC Hgb Hct MCV MCH MCHC RDW Plt Count Lymph % (Auto) Saunders % (Auto) Eos % (Auto) Baso % (Auto) Lymph # Saunders # Eos # Baso # Seg Neutrophils % Seg Neuts % (Manual) Lymphocytes % (Manual) Eosinophils % (Manual) Seg Neutrophils # Lymphocytes # (Manual) Eosinophils # (Manual) PT INR D-Dimer POC ABG pH POC ABG pCO2 POC ABG pO2 ABG pO2 ABG HCO3 ABG Base Excess ABG Hemoglobin Oxyhemoglobin Sodium Potassium Chloride Carbon Dioxide BUN Creatinine Glucose POC Glucose 117 H 113 H 131 H Calcium Phosphorus Magnesium Iron TIBC Transferrin Ferritin ALT Alkaline Phosphatase Total Creatine Kinase CK-MB (CK-2) Rel Index Troponin T Albumin LDL Cholesterol Direct PTH Intact Salicylates Acetaminophen Crossmatch 03/07/19 03/08/19 03/08/19 05:25 05:33 16:00 WBC RBC 2.44 L Hgb 6.6 L Hct 20.8 L MCV MCH 27 L MCHC RDW 19.2 H Plt Count Lymph % (Auto) Saunders % (Auto) Eos % (Auto) 8.6 H Baso % (Auto) Lymph # 0.8 L Saunders # Eos # 0.5 H Baso # Seg Neutrophils % 70.7 H Seg Neuts % (Manual) Lymphocytes % (Manual) Eosinophils % (Manual) Seg Neutrophils # Lymphocytes # (Manual) Eosinophils # (Manual) PT INR D-Dimer POC ABG pH POC ABG pCO2 POC ABG pO2 ABG pO2 ABG HCO3 ABG Base Excess ABG Hemoglobin Oxyhemoglobin Sodium Potassium Chloride Carbon Dioxide BUN Creatinine Glucose POC Glucose 106 H 108 H Calcium Phosphorus Magnesium Iron TIBC Transferrin Ferritin ALT Alkaline Phosphatase Total Creatine Kinase CK-MB (CK-2) Rel Index Troponin T Albumin LDL Cholesterol Direct PTH Intact Salicylates Acetaminophen Crossmatch 03/08/19 03/08/19 03/08/19 16:00 18:38 Unknown WBC RBC Hgb Hct MCV MCH MCHC RDW Plt Count Lymph % (Auto) Saunders % (Auto) Eos % (Auto) Baso % (Auto) Lymph # Saunders # Eos # Baso # Seg Neutrophils % Seg Neuts % (Manual) Lymphocytes % (Manual) Eosinophils % (Manual) Seg Neutrophils # Lymphocytes # (Manual) Eosinophils # (Manual) PT INR D-Dimer POC ABG pH POC ABG pCO2 POC ABG pO2 ABG pO2 ABG HCO3 ABG Base Excess ABG Hemoglobin Oxyhemoglobin Sodium Potassium 5.4 H D Chloride Carbon Dioxide BUN 47 H Creatinine 2.6 H Glucose POC Glucose 123 H Calcium Phosphorus Magnesium Iron TIBC Transferrin Ferritin ALT < 5 L Alkaline Phosphatase Total Creatine Kinase CK-MB (CK-2) Rel Index Troponin T Albumin 2.2 L LDL Cholesterol Direct PTH Intact Salicylates Acetaminophen Crossmatch See Detail 03/09/19 03/09/19 03/09/19 10:48 12:28 13:53 WBC RBC 2.85 L Hgb 7.7 L Hct 24.2 L MCV MCH 27 L MCHC RDW 18.7 H Plt Count Lymph % (Auto) Saunders % (Auto) Eos % (Auto) Baso % (Auto) Lymph # Saunders # Eos # Baso # Seg Neutrophils % Seg Neuts % (Manual) Lymphocytes % (Manual) Eosinophils % (Manual) Seg Neutrophils # Lymphocytes # (Manual) Eosinophils # (Manual) PT INR D-Dimer POC ABG pH POC ABG pCO2 POC ABG pO2 ABG pO2 ABG HCO3 30.5 H ABG Base Excess 5.6 H ABG Hemoglobin 8.1 L Oxyhemoglobin 93.8 L Sodium Potassium Chloride Carbon Dioxide BUN Creatinine Glucose POC Glucose 114 H Calcium Phosphorus Magnesium Iron TIBC Transferrin Ferritin ALT Alkaline Phosphatase Total Creatine Kinase CK-MB (CK-2) Rel Index Troponin T Albumin LDL Cholesterol Direct PTH Intact Salicylates Acetaminophen Crossmatch 03/09/19 03/09/19 03/10/19 17:58 23:53 12:01 WBC RBC Hgb Hct MCV MCH MCHC RDW Plt Count Lymph % (Auto) Saunders % (Auto) Eos % (Auto) Baso % (Auto) Lymph # Saunders # Eos # Baso # Seg Neutrophils % Seg Neuts % (Manual) Lymphocytes % (Manual) Eosinophils % (Manual) Seg Neutrophils # Lymphocytes # (Manual) Eosinophils # (Manual) PT INR D-Dimer POC ABG pH POC ABG pCO2 POC ABG pO2 ABG pO2 ABG HCO3 ABG Base Excess ABG Hemoglobin Oxyhemoglobin Sodium Potassium Chloride Carbon Dioxide BUN Creatinine Glucose POC Glucose 108 H 128 H 144 H Calcium Phosphorus Magnesium Iron TIBC Transferrin Ferritin ALT Alkaline Phosphatase Total Creatine Kinase CK-MB (CK-2) Rel Index Troponin T Albumin LDL Cholesterol Direct PTH Intact Salicylates Acetaminophen Crossmatch 03/10/19 03/11/19 03/11/19 16:50 00:24 05:02 WBC RBC Hgb Hct MCV MCH MCHC RDW Plt Count Lymph % (Auto) Saunders % (Auto) Eos % (Auto) Baso % (Auto) Lymph # Saunders # Eos # Baso # Seg Neutrophils % Seg Neuts % (Manual) Lymphocytes % (Manual) Eosinophils % (Manual) Seg Neutrophils # Lymphocytes # (Manual) Eosinophils # (Manual) PT INR D-Dimer POC ABG pH POC ABG pCO2 POC ABG pO2 ABG pO2 ABG HCO3 ABG Base Excess ABG Hemoglobin Oxyhemoglobin Sodium Potassium Chloride Carbon Dioxide BUN Creatinine Glucose POC Glucose 147 H 123 H 120 H Calcium Phosphorus Magnesium Iron TIBC Transferrin Ferritin ALT Alkaline Phosphatase Total Creatine Kinase CK-MB (CK-2) Rel Index Troponin T Albumin LDL Cholesterol Direct PTH Intact Salicylates Acetaminophen Crossmatch 03/11/19 03/11/19 03/11/19 11:56 12:20 18:37 WBC RBC Hgb Hct MCV MCH MCHC RDW Plt Count Lymph % (Auto) Saunders % (Auto) Eos % (Auto) Baso % (Auto) Lymph # Saunders # Eos # Baso # Seg Neutrophils % Seg Neuts % (Manual) Lymphocytes % (Manual) Eosinophils % (Manual) Seg Neutrophils # Lymphocytes # (Manual) Eosinophils # (Manual) PT INR D-Dimer POC ABG pH POC ABG pCO2 POC ABG pO2 ABG pO2 ABG HCO3 ABG Base Excess ABG Hemoglobin Oxyhemoglobin Sodium Potassium 5.2 H Chloride Carbon Dioxide BUN Creatinine Glucose POC Glucose 123 H 125 H Calcium Phosphorus Magnesium Iron TIBC Transferrin Ferritin ALT Alkaline Phosphatase Total Creatine Kinase CK-MB (CK-2) Rel Index Troponin T Albumin LDL Cholesterol Direct PTH Intact Salicylates Acetaminophen Crossmatch 03/11/19 03/12/19 03/12/19 22:52 12:04 18:25 WBC RBC Hgb Hct MCV MCH MCHC RDW Plt Count Lymph % (Auto) Saunders % (Auto) Eos % (Auto) Baso % (Auto) Lymph # Saunders # Eos # Baso # Seg Neutrophils % Seg Neuts % (Manual) Lymphocytes % (Manual) Eosinophils % (Manual) Seg Neutrophils # Lymphocytes # (Manual) Eosinophils # (Manual) PT INR D-Dimer POC ABG pH POC ABG pCO2 POC ABG pO2 ABG pO2 ABG HCO3 ABG Base Excess ABG Hemoglobin Oxyhemoglobin Sodium Potassium Chloride Carbon Dioxide BUN Creatinine Glucose POC Glucose 110 H 106 H 118 H Calcium Phosphorus Magnesium Iron TIBC Transferrin Ferritin ALT Alkaline Phosphatase Total Creatine Kinase CK-MB (CK-2) Rel Index Troponin T Albumin LDL Cholesterol Direct PTH Intact Salicylates Acetaminophen Crossmatch 03/12/19 03/13/19 03/13/19 23:36 04:38 04:38 WBC RBC 2.95 L Hgb 7.9 L Hct 24.9 L MCV MCH 27 L MCHC RDW 19.9 H Plt Count Lymph % (Auto) 11.1 L Saunders % (Auto) 8.1 H Eos % (Auto) 4.4 H Baso % (Auto) Lymph # 0.9 L Saunders # Eos # Baso # Seg Neutrophils % 75.4 H Seg Neuts % (Manual) Lymphocytes % (Manual) Eosinophils % (Manual) Seg Neutrophils # Lymphocytes # (Manual) Eosinophils # (Manual) PT INR D-Dimer POC ABG pH POC ABG pCO2 POC ABG pO2 ABG pO2 ABG HCO3 ABG Base Excess ABG Hemoglobin Oxyhemoglobin Sodium 136 L Potassium 5.1 H Chloride 93.8 L Carbon Dioxide BUN 48 H Creatinine 2.7 H Glucose 102 H POC Glucose 115 H Calcium Phosphorus Magnesium Iron TIBC Transferrin Ferritin ALT < 5 L Alkaline Phosphatase 143 H Total Creatine Kinase CK-MB (CK-2) Rel Index Troponin T Albumin 2.5 L LDL Cholesterol Direct PTH Intact Salicylates Acetaminophen Crossmatch 03/13/19 03/13/19 03/13/19 05:33 13:37 18:03 WBC RBC Hgb Hct MCV MCH MCHC RDW Plt Count Lymph % (Auto) Saunders % (Auto) Eos % (Auto) Baso % (Auto) Lymph # Saunders # Eos # Baso # Seg Neutrophils % Seg Neuts % (Manual) Lymphocytes % (Manual) Eosinophils % (Manual) Seg Neutrophils # Lymphocytes # (Manual) Eosinophils # (Manual) PT INR D-Dimer POC ABG pH POC ABG pCO2 POC ABG pO2 ABG pO2 ABG HCO3 ABG Base Excess ABG Hemoglobin Oxyhemoglobin Sodium Potassium Chloride Carbon Dioxide BUN Creatinine Glucose POC Glucose 140 H 150 H 158 H Calcium Phosphorus Magnesium Iron TIBC Transferrin Ferritin ALT Alkaline Phosphatase Total Creatine Kinase CK-MB (CK-2) Rel Index Troponin T Albumin LDL Cholesterol Direct PTH Intact Salicylates Acetaminophen Crossmatch 03/13/19 03/14/19 03/14/19 23:32 05:24 12:20 WBC RBC Hgb Hct MCV MCH MCHC RDW Plt Count Lymph % (Auto) Saunders % (Auto) Eos % (Auto) Baso % (Auto) Lymph # Saunders # Eos # Baso # Seg Neutrophils % Seg Neuts % (Manual) Lymphocytes % (Manual) Eosinophils % (Manual) Seg Neutrophils # Lymphocytes # (Manual) Eosinophils # (Manual) PT INR D-Dimer POC ABG pH POC ABG pCO2 POC ABG pO2 ABG pO2 ABG HCO3 ABG Base Excess ABG Hemoglobin Oxyhemoglobin Sodium Potassium Chloride Carbon Dioxide BUN Creatinine Glucose POC Glucose 162 H 146 H 127 H Calcium Phosphorus Magnesium Iron TIBC Transferrin Ferritin ALT Alkaline Phosphatase Total Creatine Kinase CK-MB (CK-2) Rel Index Troponin T Albumin LDL Cholesterol Direct PTH Intact Salicylates Acetaminophen Crossmatch 03/14/19 03/14/19 03/15/19 18:05 23:57 04:38 WBC 12.8 H RBC 3.11 L Hgb 8.1 L Hct 26.5 L MCV MCH 26 L MCHC 31 L RDW 19.7 H Plt Count Lymph % (Auto) 4.4 L Saunders % (Auto) 7.4 H Eos % (Auto) Baso % (Auto) Lymph # 0.6 L Saunders # 0.9 H Eos # Baso # Seg Neutrophils % 87.3 H Seg Neuts % (Manual) Lymphocytes % (Manual) Eosinophils % (Manual) Seg Neutrophils # 11.2 H Lymphocytes # (Manual) Eosinophils # (Manual) PT INR D-Dimer POC ABG pH POC ABG pCO2 POC ABG pO2 ABG pO2 ABG HCO3 ABG Base Excess ABG Hemoglobin Oxyhemoglobin Sodium Potassium Chloride Carbon Dioxide BUN Creatinine Glucose POC Glucose 142 H 155 H Calcium Phosphorus Magnesium Iron TIBC Transferrin Ferritin ALT Alkaline Phosphatase Total Creatine Kinase CK-MB (CK-2) Rel Index Troponin T Albumin LDL Cholesterol Direct PTH Intact Salicylates Acetaminophen Crossmatch 03/15/19 03/15/19 03/15/19 04:38 05:31 11:32 WBC RBC Hgb Hct MCV MCH MCHC RDW Plt Count Lymph % (Auto) Saunders % (Auto) Eos % (Auto) Baso % (Auto) Lymph # Saunders # Eos # Baso # Seg Neutrophils % Seg Neuts % (Manual) Lymphocytes % (Manual) Eosinophils % (Manual) Seg Neutrophils # Lymphocytes # (Manual) Eosinophils # (Manual) PT INR D-Dimer POC ABG pH POC ABG pCO2 POC ABG pO2 ABG pO2 ABG HCO3 ABG Base Excess ABG Hemoglobin Oxyhemoglobin Sodium 135 L Potassium Chloride 91.9 L Carbon Dioxide BUN 54 H Creatinine 2.8 H Glucose 128 H POC Glucose 160 H 109 H Calcium 11.1 H Phosphorus Magnesium Iron TIBC Transferrin Ferritin ALT Alkaline Phosphatase 161 H Total Creatine Kinase CK-MB (CK-2) Rel Index Troponin T Albumin 2.3 L LDL Cholesterol Direct PTH Intact Salicylates Acetaminophen Crossmatch 03/15/19 03/15/19 03/16/19 18:15 23:41 05:40 WBC RBC Hgb Hct MCV MCH MCHC RDW Plt Count Lymph % (Auto) Saunders % (Auto) Eos % (Auto) Baso % (Auto) Lymph # Saunders # Eos # Baso # Seg Neutrophils % Seg Neuts % (Manual) Lymphocytes % (Manual) Eosinophils % (Manual) Seg Neutrophils # Lymphocytes # (Manual) Eosinophils # (Manual) PT INR D-Dimer POC ABG pH POC ABG pCO2 POC ABG pO2 ABG pO2 ABG HCO3 ABG Base Excess ABG Hemoglobin Oxyhemoglobin Sodium Potassium Chloride Carbon Dioxide BUN Creatinine Glucose POC Glucose 151 H 110 H 163 H Calcium Phosphorus Magnesium Iron TIBC Transferrin Ferritin ALT Alkaline Phosphatase Total Creatine Kinase CK-MB (CK-2) Rel Index Troponin T Albumin LDL Cholesterol Direct PTH Intact Salicylates Acetaminophen Crossmatch 03/16/19 03/16/19 03/16/19 11:55 17:04 23:58 WBC RBC Hgb Hct MCV MCH MCHC RDW Plt Count Lymph % (Auto) Saunders % (Auto) Eos % (Auto) Baso % (Auto) Lymph # Saunders # Eos # Baso # Seg Neutrophils % Seg Neuts % (Manual) Lymphocytes % (Manual) Eosinophils % (Manual) Seg Neutrophils # Lymphocytes # (Manual) Eosinophils # (Manual) PT INR D-Dimer POC ABG pH POC ABG pCO2 POC ABG pO2 ABG pO2 ABG HCO3 ABG Base Excess ABG Hemoglobin Oxyhemoglobin Sodium Potassium Chloride Carbon Dioxide BUN Creatinine Glucose POC Glucose 114 H 147 H 192 H Calcium Phosphorus Magnesium Iron TIBC Transferrin Ferritin ALT Alkaline Phosphatase Total Creatine Kinase CK-MB (CK-2) Rel Index Troponin T Albumin LDL Cholesterol Direct PTH Intact Salicylates Acetaminophen Crossmatch 03/17/19 03/17/19 03/17/19 05:53 11:17 17:01 WBC RBC Hgb Hct MCV MCH MCHC RDW Plt Count Lymph % (Auto) Saunders % (Auto) Eos % (Auto) Baso % (Auto) Lymph # Saunders # Eos # Baso # Seg Neutrophils % Seg Neuts % (Manual) Lymphocytes % (Manual) Eosinophils % (Manual) Seg Neutrophils # Lymphocytes # (Manual) Eosinophils # (Manual) PT INR D-Dimer POC ABG pH POC ABG pCO2 POC ABG pO2 ABG pO2 ABG HCO3 ABG Base Excess ABG Hemoglobin Oxyhemoglobin Sodium Potassium Chloride Carbon Dioxide BUN Creatinine Glucose POC Glucose 151 H 161 H 152 H Calcium Phosphorus Magnesium Iron TIBC Transferrin Ferritin ALT Alkaline Phosphatase Total Creatine Kinase CK-MB (CK-2) Rel Index Troponin T Albumin LDL Cholesterol Direct PTH Intact Salicylates Acetaminophen Crossmatch 03/17/19 03/18/19 03/18/19 21:47 04:15 04:44 WBC RBC Hgb Hct MCV MCH MCHC RDW Plt Count Lymph % (Auto) Saunders % (Auto) Eos % (Auto) Baso % (Auto) Lymph # Saunders # Eos # Baso # Seg Neutrophils % Seg Neuts % (Manual) Lymphocytes % (Manual) Eosinophils % (Manual) Seg Neutrophils # Lymphocytes # (Manual) Eosinophils # (Manual) PT INR D-Dimer POC ABG pH POC ABG pCO2 POC ABG pO2 ABG pO2 102.8 H ABG HCO3 28.3 H ABG Base Excess ABG Hemoglobin 10.4 L Oxyhemoglobin 94.5 L Sodium Potassium Chloride Carbon Dioxide BUN Creatinine Glucose POC Glucose 170 H 150 H Calcium Phosphorus Magnesium Iron TIBC Transferrin Ferritin ALT Alkaline Phosphatase Total Creatine Kinase CK-MB (CK-2) Rel Index Troponin T Albumin LDL Cholesterol Direct PTH Intact Salicylates Acetaminophen Crossmatch 03/18/19 03/18/19 03/18/19 06:38 12:12 17:47 WBC RBC Hgb Hct MCV MCH MCHC RDW Plt Count Lymph % (Auto) Saunders % (Auto) Eos % (Auto) Baso % (Auto) Lymph # Saunders # Eos # Baso # Seg Neutrophils % Seg Neuts % (Manual) Lymphocytes % (Manual) Eosinophils % (Manual) Seg Neutrophils # Lymphocytes # (Manual) Eosinophils # (Manual) PT INR D-Dimer POC ABG pH 7.510 H POC ABG pCO2 POC ABG pO2 164 H ABG pO2 ABG HCO3 ABG Base Excess ABG Hemoglobin Oxyhemoglobin Sodium Potassium Chloride Carbon Dioxide BUN Creatinine Glucose POC Glucose 145 H 149 H Calcium Phosphorus Magnesium Iron TIBC Transferrin Ferritin ALT Alkaline Phosphatase Total Creatine Kinase CK-MB (CK-2) Rel Index Troponin T Albumin LDL Cholesterol Direct PTH Intact Salicylates Acetaminophen Crossmatch 03/18/19 03/19/19 03/19/19 23:25 01:11 04:23 WBC 15.6 H RBC 2.51 L Hgb 6.5 L Hct 21.6 L MCV MCH 26 L MCHC 30 L RDW 19.8 H Plt Count Lymph % (Auto) 6.0 L Saunders % (Auto) Eos % (Auto) Baso % (Auto) Lymph # 0.9 L Saunders # 1.0 H Eos # Baso # Seg Neutrophils % 85.5 H Seg Neuts % (Manual) Lymphocytes % (Manual) Eosinophils % (Manual) Seg Neutrophils # 13.4 H Lymphocytes # (Manual) Eosinophils # (Manual) PT INR D-Dimer POC ABG pH POC ABG pCO2 POC ABG pO2 ABG pO2 78.3 L ABG HCO3 30.7 H ABG Base Excess 5.8 H ABG Hemoglobin 5.8 L Oxyhemoglobin 94.6 L Sodium Potassium Chloride Carbon Dioxide BUN Creatinine Glucose POC Glucose 190 H Calcium Phosphorus Magnesium Iron TIBC Transferrin Ferritin ALT Alkaline Phosphatase Total Creatine Kinase CK-MB (CK-2) Rel Index Troponin T Albumin LDL Cholesterol Direct PTH Intact Salicylates Acetaminophen Crossmatch 03/19/19 03/19/19 03/19/19 05:22 05:35 08:54 WBC RBC Hgb Hct MCV MCH MCHC RDW Plt Count Lymph % (Auto) Saunders % (Auto) Eos % (Auto) Baso % (Auto) Lymph # Saunders # Eos # Baso # Seg Neutrophils % Seg Neuts % (Manual) Lymphocytes % (Manual) Eosinophils % (Manual) Seg Neutrophils # Lymphocytes # (Manual) Eosinophils # (Manual) PT INR D-Dimer POC ABG pH POC ABG pCO2 POC ABG pO2 ABG pO2 ABG HCO3 ABG Base Excess ABG Hemoglobin Oxyhemoglobin Sodium Potassium Chloride Carbon Dioxide BUN Creatinine Glucose POC Glucose 167 H Calcium Phosphorus Magnesium Iron TIBC Transferrin Ferritin ALT Alkaline Phosphatase Total Creatine Kinase CK-MB (CK-2) Rel Index Troponin T Albumin LDL Cholesterol Direct PTH Intact Salicylates Acetaminophen Crossmatch See Detail See Detail 03/19/19 03/19/19 03/19/19 12:36 17:02 23:25 WBC RBC Hgb Hct MCV MCH MCHC RDW Plt Count Lymph % (Auto) Saunders % (Auto) Eos % (Auto) Baso % (Auto) Lymph # Saunders # Eos # Baso # Seg Neutrophils % Seg Neuts % (Manual) Lymphocytes % (Manual) Eosinophils % (Manual) Seg Neutrophils # Lymphocytes # (Manual) Eosinophils # (Manual) PT INR D-Dimer POC ABG pH POC ABG pCO2 POC ABG pO2 ABG pO2 ABG HCO3 ABG Base Excess ABG Hemoglobin Oxyhemoglobin Sodium Potassium Chloride Carbon Dioxide BUN Creatinine Glucose POC Glucose 167 H 135 H 136 H Calcium Phosphorus Magnesium Iron TIBC Transferrin Ferritin ALT Alkaline Phosphatase Total Creatine Kinase CK-MB (CK-2) Rel Index Troponin T Albumin LDL Cholesterol Direct PTH Intact Salicylates Acetaminophen Crossmatch 03/20/19 03/20/19 03/20/19 05:38 08:40 08:40 WBC RBC 2.61 L Hgb 7.1 L Hct 22.0 L MCV MCH 27 L MCHC RDW 19.6 H Plt Count Lymph % (Auto) 8.2 L Saunders % (Auto) 8.3 H Eos % (Auto) 5.7 H Baso % (Auto) Lymph # 0.8 L Saunders # Eos # 0.5 H Baso # Seg Neutrophils % 77.3 H Seg Neuts % (Manual) Lymphocytes % (Manual) Eosinophils % (Manual) Seg Neutrophils # Lymphocytes # (Manual) Eosinophils # (Manual) PT INR D-Dimer POC ABG pH POC ABG pCO2 POC ABG pO2 ABG pO2 ABG HCO3 ABG Base Excess ABG Hemoglobin Oxyhemoglobin Sodium Potassium Chloride 95.9 L Carbon Dioxide BUN 69 H Creatinine 2.8 H Glucose 115 H POC Glucose 134 H Calcium 10.5 H Phosphorus Magnesium Iron TIBC Transferrin Ferritin ALT Alkaline Phosphatase Total Creatine Kinase CK-MB (CK-2) Rel Index Troponin T Albumin LDL Cholesterol Direct PTH Intact Salicylates Acetaminophen Crossmatch 03/20/19 03/20/19 03/20/19 12:13 18:04 23:49 WBC RBC Hgb Hct MCV MCH MCHC RDW Plt Count Lymph % (Auto) Saunders % (Auto) Eos % (Auto) Baso % (Auto) Lymph # Saunders # Eos # Baso # Seg Neutrophils % Seg Neuts % (Manual) Lymphocytes % (Manual) Eosinophils % (Manual) Seg Neutrophils # Lymphocytes # (Manual) Eosinophils # (Manual) PT INR D-Dimer POC ABG pH POC ABG pCO2 POC ABG pO2 ABG pO2 ABG HCO3 ABG Base Excess ABG Hemoglobin Oxyhemoglobin Sodium Potassium Chloride Carbon Dioxide BUN Creatinine Glucose POC Glucose 144 H 165 H 172 H Calcium Phosphorus Magnesium Iron TIBC Transferrin Ferritin ALT Alkaline Phosphatase Total Creatine Kinase CK-MB (CK-2) Rel Index Troponin T Albumin LDL Cholesterol Direct PTH Intact Salicylates Acetaminophen Crossmatch 03/21/19 03/21/19 03/21/19 05:00 06:29 06:30 WBC RBC 2.72 L Hgb 7.4 L Hct 22.9 L MCV MCH 27 L MCHC RDW 19.4 H Plt Count Lymph % (Auto) Saunders % (Auto) Eos % (Auto) Baso % (Auto) Lymph # Saunders # Eos # Baso # Seg Neutrophils % Seg Neuts % (Manual) 81.0 H Lymphocytes % (Manual) 8.0 L Eosinophils % (Manual) 8.0 H Seg Neutrophils # Lymphocytes # (Manual) 0.7 L Eosinophils # (Manual) 0.7 H PT INR D-Dimer POC ABG pH POC ABG pCO2 POC ABG pO2 ABG pO2 ABG HCO3 ABG Base Excess ABG Hemoglobin Oxyhemoglobin Sodium Potassium Chloride Carbon Dioxide 33 H BUN 43 H Creatinine 1.7 H Glucose 145 H POC Glucose 156 H Calcium Phosphorus Magnesium Iron TIBC Transferrin Ferritin ALT Alkaline Phosphatase 212 H Total Creatine Kinase CK-MB (CK-2) Rel Index Troponin T Albumin 2.2 L LDL Cholesterol Direct PTH Intact Salicylates Acetaminophen Crossmatch 03/21/19 03/21/19 03/22/19 12:02 18:07 00:21 WBC RBC Hgb Hct MCV MCH MCHC RDW Plt Count Lymph % (Auto) Saunders % (Auto) Eos % (Auto) Baso % (Auto) Lymph # Saunders # Eos # Baso # Seg Neutrophils % Seg Neuts % (Manual) Lymphocytes % (Manual) Eosinophils % (Manual) Seg Neutrophils # Lymphocytes # (Manual) Eosinophils # (Manual) PT INR D-Dimer POC ABG pH POC ABG pCO2 POC ABG pO2 ABG pO2 ABG HCO3 ABG Base Excess ABG Hemoglobin Oxyhemoglobin Sodium Potassium Chloride Carbon Dioxide BUN Creatinine Glucose POC Glucose 163 H 144 H 153 H Calcium Phosphorus Magnesium Iron TIBC Transferrin Ferritin ALT Alkaline Phosphatase Total Creatine Kinase CK-MB (CK-2) Rel Index Troponin T Albumin LDL Cholesterol Direct PTH Intact Salicylates Acetaminophen Crossmatch 03/22/19 03/22/19 03/22/19 05:23 05:23 05:31 WBC RBC 2.58 L Hgb 7.1 L Hct 21.8 L MCV MCH 27 L MCHC RDW 19.2 H Plt Count Lymph % (Auto) Saunders % (Auto) Eos % (Auto) Baso % (Auto) Lymph # Saunders # Eos # Baso # Seg Neutrophils % Seg Neuts % (Manual) Lymphocytes % (Manual) Eosinophils % (Manual) Seg Neutrophils # Lymphocytes # (Manual) Eosinophils # (Manual) PT INR D-Dimer POC ABG pH POC ABG pCO2 POC ABG pO2 ABG pO2 ABG HCO3 ABG Base Excess ABG Hemoglobin Oxyhemoglobin Sodium 147 H Potassium Chloride Carbon Dioxide BUN 68 H Creatinine 2.5 H Glucose POC Glucose 116 H Calcium 10.3 H Phosphorus Magnesium Iron TIBC Transferrin Ferritin ALT Alkaline Phosphatase Total Creatine Kinase CK-MB (CK-2) Rel Index Troponin T Albumin LDL Cholesterol Direct PTH Intact Salicylates Acetaminophen Crossmatch 03/22/19 03/22/19 03/22/19 08:48 12:37 17:35 WBC RBC Hgb Hct MCV MCH MCHC RDW Plt Count Lymph % (Auto) Saunders % (Auto) Eos % (Auto) Baso % (Auto) Lymph # Saunders # Eos # Baso # Seg Neutrophils % Seg Neuts % (Manual) Lymphocytes % (Manual) Eosinophils % (Manual) Seg Neutrophils # Lymphocytes # (Manual) Eosinophils # (Manual) PT INR D-Dimer POC ABG pH POC ABG pCO2 POC ABG pO2 ABG pO2 ABG HCO3 ABG Base Excess ABG Hemoglobin Oxyhemoglobin Sodium Potassium Chloride Carbon Dioxide BUN Creatinine Glucose POC Glucose 143 H 155 H Calcium Phosphorus Magnesium Iron TIBC Transferrin Ferritin ALT Alkaline Phosphatase Total Creatine Kinase CK-MB (CK-2) Rel Index Troponin T Albumin LDL Cholesterol Direct PTH Intact Salicylates Acetaminophen Crossmatch See Detail 03/23/19 03/23/19 03/23/19 00:07 04:00 04:00 WBC 11.2 H RBC 2.32 L Hgb 6.4 L Hct 19.7 L* MCV MCH MCHC RDW 19.4 H Plt Count Lymph % (Auto) Saunders % (Auto) Eos % (Auto) Baso % (Auto) Lymph # Saunders # Eos # Baso # Seg Neutrophils % Seg Neuts % (Manual) Lymphocytes % (Manual) Eosinophils % (Manual) Seg Neutrophils # Lymphocytes # (Manual) Eosinophils # (Manual) PT INR D-Dimer POC ABG pH POC ABG pCO2 POC ABG pO2 ABG pO2 ABG HCO3 ABG Base Excess ABG Hemoglobin Oxyhemoglobin Sodium 147 H Potassium 5.2 H Chloride Carbon Dioxide BUN 86 H Creatinine 3.2 H Glucose 128 H POC Glucose 135 H Calcium 10.3 H Phosphorus Magnesium Iron TIBC Transferrin Ferritin ALT Alkaline Phosphatase Total Creatine Kinase CK-MB (CK-2) Rel Index Troponin T Albumin LDL Cholesterol Direct PTH Intact Salicylates Acetaminophen Crossmatch 03/23/19 03/23/19 03/23/19 05:21 11:36 11:36 WBC RBC Hgb 7.9 L Hct 25.0 L MCV MCH MCHC RDW Plt Count Lymph % (Auto) Saunders % (Auto) Eos % (Auto) Baso % (Auto) Lymph # Saunders # Eos # Baso # Seg Neutrophils % Seg Neuts % (Manual) Lymphocytes % (Manual) Eosinophils % (Manual) Seg Neutrophils # Lymphocytes # (Manual) Eosinophils # (Manual) PT INR D-Dimer POC ABG pH POC ABG pCO2 POC ABG pO2 ABG pO2 ABG HCO3 ABG Base Excess ABG Hemoglobin Oxyhemoglobin Sodium Potassium Chloride Carbon Dioxide BUN Creatinine Glucose POC Glucose 132 H 147 H Calcium Phosphorus Magnesium Iron TIBC Transferrin Ferritin ALT Alkaline Phosphatase Total Creatine Kinase CK-MB (CK-2) Rel Index Troponin T Albumin LDL Cholesterol Direct PTH Intact Salicylates Acetaminophen Crossmatch 03/23/19 03/24/19 03/24/19 17:31 01:22 04:20 WBC 12.2 H RBC 3.05 L Hgb 8.3 L Hct 25.9 L MCV MCH 27 L MCHC RDW 18.7 H Plt Count Lymph % (Auto) Saunders % (Auto) Eos % (Auto) Baso % (Auto) Lymph # Saunders # Eos # Baso # Seg Neutrophils % Seg Neuts % (Manual) Lymphocytes % (Manual) Eosinophils % (Manual) Seg Neutrophils # Lymphocytes # (Manual) Eosinophils # (Manual) PT INR D-Dimer POC ABG pH POC ABG pCO2 POC ABG pO2 ABG pO2 ABG HCO3 ABG Base Excess ABG Hemoglobin Oxyhemoglobin Sodium Potassium Chloride Carbon Dioxide BUN Creatinine Glucose POC Glucose 182 H 113 H Calcium Phosphorus Magnesium Iron TIBC Transferrin Ferritin ALT Alkaline Phosphatase Total Creatine Kinase CK-MB (CK-2) Rel Index Troponin T Albumin LDL Cholesterol Direct PTH Intact Salicylates Acetaminophen Crossmatch 03/24/19 03/24/19 03/24/19 04:20 11:59 18:14 WBC RBC Hgb Hct MCV MCH MCHC RDW Plt Count Lymph % (Auto) Saunders % (Auto) Eos % (Auto) Baso % (Auto) Lymph # Saunders # Eos # Baso # Seg Neutrophils % Seg Neuts % (Manual) Lymphocytes % (Manual) Eosinophils % (Manual) Seg Neutrophils # Lymphocytes # (Manual) Eosinophils # (Manual) PT INR D-Dimer POC ABG pH POC ABG pCO2 POC ABG pO2 ABG pO2 ABG HCO3 ABG Base Excess ABG Hemoglobin Oxyhemoglobin Sodium Potassium Chloride 94.8 L Carbon Dioxide 32 H BUN 53 H Creatinine 2.3 H Glucose POC Glucose 163 H 134 H Calcium Phosphorus Magnesium Iron TIBC Transferrin Ferritin ALT Alkaline Phosphatase Total Creatine Kinase CK-MB (CK-2) Rel Index Troponin T Albumin LDL Cholesterol Direct PTH Intact Salicylates Acetaminophen Crossmatch 03/24/19 03/25/19 03/25/19 23:15 05:52 12:02 WBC RBC Hgb Hct MCV MCH MCHC RDW Plt Count Lymph % (Auto) Saunders % (Auto) Eos % (Auto) Baso % (Auto) Lymph # Saunders # Eos # Baso # Seg Neutrophils % Seg Neuts % (Manual) Lymphocytes % (Manual) Eosinophils % (Manual) Seg Neutrophils # Lymphocytes # (Manual) Eosinophils # (Manual) PT INR D-Dimer POC ABG pH POC ABG pCO2 POC ABG pO2 ABG pO2 ABG HCO3 ABG Base Excess ABG Hemoglobin Oxyhemoglobin Sodium Potassium Chloride Carbon Dioxide BUN Creatinine Glucose POC Glucose 129 H 123 H 125 H Calcium Phosphorus Magnesium Iron TIBC Transferrin Ferritin ALT Alkaline Phosphatase Total Creatine Kinase CK-MB (CK-2) Rel Index Troponin T Albumin LDL Cholesterol Direct PTH Intact Salicylates Acetaminophen Crossmatch 03/25/19 03/26/19 03/26/19 17:27 00:30 05:35 WBC RBC 3.01 L Hgb 8.1 L Hct 25.7 L MCV MCH 27 L MCHC RDW 19.2 H Plt Count Lymph % (Auto) 11.4 L Saunders % (Auto) Eos % (Auto) 8.0 H Baso % (Auto) Lymph # 1.0 L Saunders # Eos # 0.7 H Baso # Seg Neutrophils % 73.9 H Seg Neuts % (Manual) Lymphocytes % (Manual) Eosinophils % (Manual) Seg Neutrophils # Lymphocytes # (Manual) Eosinophils # (Manual) PT INR D-Dimer POC ABG pH POC ABG pCO2 POC ABG pO2 ABG pO2 ABG HCO3 ABG Base Excess ABG Hemoglobin Oxyhemoglobin Sodium Potassium Chloride Carbon Dioxide BUN Creatinine Glucose POC Glucose 130 H 129 H Calcium Phosphorus Magnesium Iron TIBC Transferrin Ferritin ALT Alkaline Phosphatase Total Creatine Kinase CK-MB (CK-2) Rel Index Troponin T Albumin LDL Cholesterol Direct PTH Intact Salicylates Acetaminophen Crossmatch 03/26/19 03/26/19 03/26/19 05:35 05:45 12:16 WBC RBC Hgb Hct MCV MCH MCHC RDW Plt Count Lymph % (Auto) Saunders % (Auto) Eos % (Auto) Baso % (Auto) Lymph # Saunders # Eos # Baso # Seg Neutrophils % Seg Neuts % (Manual) Lymphocytes % (Manual) Eosinophils % (Manual) Seg Neutrophils # Lymphocytes # (Manual) Eosinophils # (Manual) PT INR D-Dimer POC ABG pH POC ABG pCO2 POC ABG pO2 ABG pO2 ABG HCO3 ABG Base Excess ABG Hemoglobin Oxyhemoglobin Sodium Potassium Chloride 94.9 L Carbon Dioxide 31 H BUN 44 H Creatinine 2.0 H Glucose POC Glucose 118 H 107 H Calcium Phosphorus Magnesium Iron TIBC Transferrin Ferritin ALT Alkaline Phosphatase Total Creatine Kinase CK-MB (CK-2) Rel Index Troponin T Albumin LDL Cholesterol Direct PTH Intact Salicylates Acetaminophen Crossmatch 03/26/19 03/27/19 03/27/19 17:56 00:36 05:37 WBC RBC Hgb Hct MCV MCH MCHC RDW Plt Count Lymph % (Auto) Saunders % (Auto) Eos % (Auto) Baso % (Auto) Lymph # Saunders # Eos # Baso # Seg Neutrophils % Seg Neuts % (Manual) Lymphocytes % (Manual) Eosinophils % (Manual) Seg Neutrophils # Lymphocytes # (Manual) Eosinophils # (Manual) PT INR D-Dimer POC ABG pH POC ABG pCO2 POC ABG pO2 ABG pO2 ABG HCO3 ABG Base Excess ABG Hemoglobin Oxyhemoglobin Sodium Potassium Chloride Carbon Dioxide BUN Creatinine Glucose POC Glucose 107 H 110 H 122 H Calcium Phosphorus Magnesium Iron TIBC Transferrin Ferritin ALT Alkaline Phosphatase Total Creatine Kinase CK-MB (CK-2) Rel Index Troponin T Albumin LDL Cholesterol Direct PTH Intact Salicylates Acetaminophen Crossmatch 03/27/19 03/27/19 03/28/19 11:22 18:00 05:17 WBC RBC Hgb Hct MCV MCH MCHC RDW Plt Count Lymph % (Auto) Saunders % (Auto) Eos % (Auto) Baso % (Auto) Lymph # Saunders # Eos # Baso # Seg Neutrophils % Seg Neuts % (Manual) Lymphocytes % (Manual) Eosinophils % (Manual) Seg Neutrophils # Lymphocytes # (Manual) Eosinophils # (Manual) PT INR D-Dimer POC ABG pH POC ABG pCO2 POC ABG pO2 ABG pO2 ABG HCO3 ABG Base Excess ABG Hemoglobin Oxyhemoglobin Sodium Potassium Chloride Carbon Dioxide BUN Creatinine Glucose POC Glucose 120 H 111 H 107 H Calcium Phosphorus Magnesium Iron TIBC Transferrin Ferritin ALT Alkaline Phosphatase Total Creatine Kinase CK-MB (CK-2) Rel Index Troponin T Albumin LDL Cholesterol Direct PTH Intact Salicylates Acetaminophen Crossmatch 03/28/19 03/28/19 03/29/19 12:27 18:08 05:47 WBC RBC Hgb Hct MCV MCH MCHC RDW Plt Count Lymph % (Auto) Saunders % (Auto) Eos % (Auto) Baso % (Auto) Lymph # Saunders # Eos # Baso # Seg Neutrophils % Seg Neuts % (Manual) Lymphocytes % (Manual) Eosinophils % (Manual) Seg Neutrophils # Lymphocytes # (Manual) Eosinophils # (Manual) PT INR D-Dimer POC ABG pH POC ABG pCO2 POC ABG pO2 ABG pO2 ABG HCO3 ABG Base Excess ABG Hemoglobin Oxyhemoglobin Sodium Potassium Chloride Carbon Dioxide BUN Creatinine Glucose POC Glucose 114 H 121 H 112 H Calcium Phosphorus Magnesium Iron TIBC Transferrin Ferritin ALT Alkaline Phosphatase Total Creatine Kinase CK-MB (CK-2) Rel Index Troponin T Albumin LDL Cholesterol Direct PTH Intact Salicylates Acetaminophen Crossmatch 03/29/19 03/29/19 03/30/19 12:14 18:08 00:31 WBC RBC Hgb Hct MCV MCH MCHC RDW Plt Count Lymph % (Auto) Saunders % (Auto) Eos % (Auto) Baso % (Auto) Lymph # Saunders # Eos # Baso # Seg Neutrophils % Seg Neuts % (Manual) Lymphocytes % (Manual) Eosinophils % (Manual) Seg Neutrophils # Lymphocytes # (Manual) Eosinophils # (Manual) PT INR D-Dimer POC ABG pH POC ABG pCO2 POC ABG pO2 ABG pO2 ABG HCO3 ABG Base Excess ABG Hemoglobin Oxyhemoglobin Sodium Potassium Chloride Carbon Dioxide BUN Creatinine Glucose POC Glucose 117 H 140 H 114 H Calcium Phosphorus Magnesium Iron TIBC Transferrin Ferritin ALT Alkaline Phosphatase Total Creatine Kinase CK-MB (CK-2) Rel Index Troponin T Albumin LDL Cholesterol Direct PTH Intact Salicylates Acetaminophen Crossmatch 03/30/19 03/30/19 03/30/19 10:13 10:13 23:53 WBC RBC 2.81 L Hgb 7.7 L Hct 24.3 L MCV MCH 27 L MCHC RDW 19.0 H Plt Count Lymph % (Auto) 12.2 L Saunders % (Auto) Eos % (Auto) 7.9 H Baso % (Auto) Lymph # 1.0 L Saunders # Eos # 0.6 H Baso # Seg Neutrophils % 72.3 H Seg Neuts % (Manual) Lymphocytes % (Manual) Eosinophils % (Manual) Seg Neutrophils # Lymphocytes # (Manual) Eosinophils # (Manual) PT INR D-Dimer POC ABG pH POC ABG pCO2 POC ABG pO2 ABG pO2 ABG HCO3 ABG Base Excess ABG Hemoglobin Oxyhemoglobin Sodium Potassium 5.1 H Chloride 96.5 L Carbon Dioxide BUN 73 H Creatinine 3.9 H D Glucose POC Glucose 114 H Calcium 10.3 H Phosphorus 6.30 H Magnesium 2.70 H Iron TIBC Transferrin Ferritin ALT Alkaline Phosphatase 185 H Total Creatine Kinase CK-MB (CK-2) Rel Index Troponin T Albumin 2.6 L LDL Cholesterol Direct PTH Intact Salicylates Acetaminophen Crossmatch 03/31/19 03/31/19 03/31/19 05:45 10:26 10:26 WBC RBC 3.01 L Hgb 8.2 L Hct 26.4 L MCV MCH 27 L MCHC 31 L RDW 20.3 H Plt Count Lymph % (Auto) 13.3 L Saunders % (Auto) Eos % (Auto) 7.2 H Baso % (Auto) Lymph # 1.1 L Saunders # Eos # 0.6 H Baso # Seg Neutrophils % 72.1 H Seg Neuts % (Manual) Lymphocytes % (Manual) Eosinophils % (Manual) Seg Neutrophils # Lymphocytes # (Manual) Eosinophils # (Manual) PT INR D-Dimer POC ABG pH POC ABG pCO2 POC ABG pO2 ABG pO2 ABG HCO3 ABG Base Excess ABG Hemoglobin Oxyhemoglobin Sodium Potassium Chloride 96.9 L Carbon Dioxide 33 H BUN 37 H Creatinine 2.4 H Glucose POC Glucose 108 H Calcium 10.3 H Phosphorus Magnesium Iron TIBC Transferrin Ferritin ALT Alkaline Phosphatase Total Creatine Kinase CK-MB (CK-2) Rel Index Troponin T Albumin LDL Cholesterol Direct PTH Intact Salicylates Acetaminophen Crossmatch 03/31/19 04/01/19 04/01/19 12:38 05:48 12:06 WBC RBC Hgb Hct MCV MCH MCHC RDW Plt Count Lymph % (Auto) Saunders % (Auto) Eos % (Auto) Baso % (Auto) Lymph # Saunders # Eos # Baso # Seg Neutrophils % Seg Neuts % (Manual) Lymphocytes % (Manual) Eosinophils % (Manual) Seg Neutrophils # Lymphocytes # (Manual) Eosinophils # (Manual) PT INR D-Dimer POC ABG pH POC ABG pCO2 POC ABG pO2 ABG pO2 ABG HCO3 ABG Base Excess ABG Hemoglobin Oxyhemoglobin Sodium Potassium Chloride Carbon Dioxide BUN Creatinine Glucose POC Glucose 108 H 114 H 111 H Calcium Phosphorus Magnesium Iron TIBC Transferrin Ferritin ALT Alkaline Phosphatase Total Creatine Kinase CK-MB (CK-2) Rel Index Troponin T Albumin LDL Cholesterol Direct PTH Intact Salicylates Acetaminophen Crossmatch 04/01/19 04/02/19 04/04/19 18:24 00:36 23:55 WBC RBC Hgb Hct MCV MCH MCHC RDW Plt Count Lymph % (Auto) Saunders % (Auto) Eos % (Auto) Baso % (Auto) Lymph # Saunders # Eos # Baso # Seg Neutrophils % Seg Neuts % (Manual) Lymphocytes % (Manual) Eosinophils % (Manual) Seg Neutrophils # Lymphocytes # (Manual) Eosinophils # (Manual) PT INR D-Dimer POC ABG pH POC ABG pCO2 POC ABG pO2 ABG pO2 ABG HCO3 ABG Base Excess ABG Hemoglobin Oxyhemoglobin Sodium Potassium Chloride Carbon Dioxide BUN Creatinine Glucose POC Glucose 113 H 117 H 109 H Calcium Phosphorus Magnesium Iron TIBC Transferrin Ferritin ALT Alkaline Phosphatase Total Creatine Kinase CK-MB (CK-2) Rel Index Troponin T Albumin LDL Cholesterol Direct PTH Intact Salicylates Acetaminophen Crossmatch 04/06/19 04/06/19 04/06/19 00:11 06:02 23:30 WBC RBC Hgb Hct MCV MCH MCHC RDW Plt Count Lymph % (Auto) Saunders % (Auto) Eos % (Auto) Baso % (Auto) Lymph # Saunders # Eos # Baso # Seg Neutrophils % Seg Neuts % (Manual) Lymphocytes % (Manual) Eosinophils % (Manual) Seg Neutrophils # Lymphocytes # (Manual) Eosinophils # (Manual) PT INR D-Dimer POC ABG pH POC ABG pCO2 POC ABG pO2 ABG pO2 ABG HCO3 ABG Base Excess ABG Hemoglobin Oxyhemoglobin Sodium Potassium Chloride Carbon Dioxide BUN Creatinine Glucose POC Glucose 116 H 112 H 112 H Calcium Phosphorus Magnesium Iron TIBC Transferrin Ferritin ALT Alkaline Phosphatase Total Creatine Kinase CK-MB (CK-2) Rel Index Troponin T Albumin LDL Cholesterol Direct PTH Intact Salicylates Acetaminophen Crossmatch 04/08/19 04/08/19 04/08/19 02:23 06:19 13:01 WBC RBC Hgb Hct MCV MCH MCHC RDW Plt Count Lymph % (Auto) Saunders % (Auto) Eos % (Auto) Baso % (Auto) Lymph # Saunders # Eos # Baso # Seg Neutrophils % Seg Neuts % (Manual) Lymphocytes % (Manual) Eosinophils % (Manual) Seg Neutrophils # Lymphocytes # (Manual) Eosinophils # (Manual) PT INR D-Dimer POC ABG pH POC ABG pCO2 POC ABG pO2 ABG pO2 ABG HCO3 ABG Base Excess ABG Hemoglobin Oxyhemoglobin Sodium Potassium Chloride Carbon Dioxide BUN Creatinine Glucose POC Glucose 144 H 126 H 118 H Calcium Phosphorus Magnesium Iron TIBC Transferrin Ferritin ALT Alkaline Phosphatase Total Creatine Kinase CK-MB (CK-2) Rel Index Troponin T Albumin LDL Cholesterol Direct PTH Intact Salicylates Acetaminophen Crossmatch 04/08/19 04/09/19 04/10/19 23:28 05:52 06:34 WBC RBC Hgb Hct MCV MCH MCHC RDW Plt Count Lymph % (Auto) Saunders % (Auto) Eos % (Auto) Baso % (Auto) Lymph # Saunders # Eos # Baso # Seg Neutrophils % Seg Neuts % (Manual) Lymphocytes % (Manual) Eosinophils % (Manual) Seg Neutrophils # Lymphocytes # (Manual) Eosinophils # (Manual) PT INR D-Dimer POC ABG pH POC ABG pCO2 POC ABG pO2 ABG pO2 ABG HCO3 ABG Base Excess ABG Hemoglobin Oxyhemoglobin Sodium Potassium Chloride Carbon Dioxide BUN Creatinine Glucose POC Glucose 119 H 116 H 114 H Calcium Phosphorus Magnesium Iron TIBC Transferrin Ferritin ALT Alkaline Phosphatase Total Creatine Kinase CK-MB (CK-2) Rel Index Troponin T Albumin LDL Cholesterol Direct PTH Intact Salicylates Acetaminophen Crossmatch 04/10/19 04/10/19 04/11/19 12:34 18:59 00:36 WBC RBC Hgb Hct MCV MCH MCHC RDW Plt Count Lymph % (Auto) Saunders % (Auto) Eos % (Auto) Baso % (Auto) Lymph # Saunders # Eos # Baso # Seg Neutrophils % Seg Neuts % (Manual) Lymphocytes % (Manual) Eosinophils % (Manual) Seg Neutrophils # Lymphocytes # (Manual) Eosinophils # (Manual) PT INR D-Dimer POC ABG pH POC ABG pCO2 POC ABG pO2 ABG pO2 ABG HCO3 ABG Base Excess ABG Hemoglobin Oxyhemoglobin Sodium Potassium Chloride Carbon Dioxide BUN Creatinine Glucose POC Glucose 112 H 109 H 124 H Calcium Phosphorus Magnesium Iron TIBC Transferrin Ferritin ALT Alkaline Phosphatase Total Creatine Kinase CK-MB (CK-2) Rel Index Troponin T Albumin LDL Cholesterol Direct PTH Intact Salicylates Acetaminophen Crossmatch 04/11/19 04/11/19 04/12/19 08:01 17:25 02:18 WBC RBC Hgb Hct MCV MCH MCHC RDW Plt Count Lymph % (Auto) Saunders % (Auto) Eos % (Auto) Baso % (Auto) Lymph # Saunders # Eos # Baso # Seg Neutrophils % Seg Neuts % (Manual) Lymphocytes % (Manual) Eosinophils % (Manual) Seg Neutrophils # Lymphocytes # (Manual) Eosinophils # (Manual) PT INR D-Dimer POC ABG pH POC ABG pCO2 POC ABG pO2 ABG pO2 ABG HCO3 ABG Base Excess ABG Hemoglobin Oxyhemoglobin Sodium Potassium Chloride Carbon Dioxide BUN Creatinine Glucose POC Glucose 118 H 106 H 125 H Calcium Phosphorus Magnesium Iron TIBC Transferrin Ferritin ALT Alkaline Phosphatase Total Creatine Kinase CK-MB (CK-2) Rel Index Troponin T Albumin LDL Cholesterol Direct PTH Intact Salicylates Acetaminophen Crossmatch 0904/12/19 04/12/19 06:24 12:22 17:13 WBC RBC Hgb Hct MCV MCH MCHC RDW Plt Count Lymph % (Auto) Saunders % (Auto) Eos % (Auto) Baso % (Auto) Lymph # Saunders # Eos # Baso # Seg Neutrophils % Seg Neuts % (Manual) Lymphocytes % (Manual) Eosinophils % (Manual) Seg Neutrophils # Lymphocytes # (Manual) Eosinophils # (Manual) PT INR D-Dimer POC ABG pH POC ABG pCO2 POC ABG pO2 ABG pO2 ABG HCO3 ABG Base Excess ABG Hemoglobin Oxyhemoglobin Sodium Potassium Chloride Carbon Dioxide BUN Creatinine Glucose POC Glucose 128 H 114 H 110 H Calcium Phosphorus Magnesium Iron TIBC Transferrin Ferritin ALT Alkaline Phosphatase Total Creatine Kinase CK-MB (CK-2) Rel Index Troponin T Albumin LDL Cholesterol Direct PTH Intact Salicylates Acetaminophen Crossmatch 04/13/19 04/13/19 04/13/19 06:59 07:31 07:31 WBC RBC 3.34 L Hgb 8.9 L Hct 28.6 L MCV MCH 27 L MCHC 31 L RDW 19.6 H Plt Count Lymph % (Auto) Saunders % (Auto) Eos % (Auto) Baso % (Auto) Lymph # Saunders # Eos # Baso # Seg Neutrophils % Seg Neuts % (Manual) Lymphocytes % (Manual) Eosinophils % (Manual) Seg Neutrophils # Lymphocytes # (Manual) Eosinophils # (Manual) PT INR D-Dimer POC ABG pH POC ABG pCO2 POC ABG pO2 ABG pO2 ABG HCO3 ABG Base Excess ABG Hemoglobin Oxyhemoglobin Sodium Potassium Chloride 96.4 L Carbon Dioxide 33 H BUN 66 H Creatinine 4.5 H Glucose 103 H POC Glucose 107 H Calcium Phosphorus Magnesium Iron TIBC Transferrin Ferritin ALT Alkaline Phosphatase Total Creatine Kinase CK-MB (CK-2) Rel Index Troponin T Albumin LDL Cholesterol Direct PTH Intact Salicylates Acetaminophen Crossmatch 04/13/19 04/14/19 04/14/19 23:43 05:50 13:07 WBC RBC Hgb Hct MCV MCH MCHC RDW Plt Count Lymph % (Auto) Saunders % (Auto) Eos % (Auto) Baso % (Auto) Lymph # Saunders # Eos # Baso # Seg Neutrophils % Seg Neuts % (Manual) Lymphocytes % (Manual) Eosinophils % (Manual) Seg Neutrophils # Lymphocytes # (Manual) Eosinophils # (Manual) PT INR D-Dimer POC ABG pH POC ABG pCO2 POC ABG pO2 ABG pO2 ABG HCO3 ABG Base Excess ABG Hemoglobin Oxyhemoglobin Sodium Potassium Chloride Carbon Dioxide BUN Creatinine Glucose POC Glucose 119 H 112 H 112 H Calcium Phosphorus Magnesium Iron TIBC Transferrin Ferritin ALT Alkaline Phosphatase Total Creatine Kinase CK-MB (CK-2) Rel Index Troponin T Albumin LDL Cholesterol Direct PTH Intact Salicylates Acetaminophen Crossmatch 04/14/19 04/15/19 04/15/19 18:35 01:18 05:17 WBC RBC Hgb Hct MCV MCH MCHC RDW Plt Count Lymph % (Auto) Saunders % (Auto) Eos % (Auto) Baso % (Auto) Lymph # Saunders # Eos # Baso # Seg Neutrophils % Seg Neuts % (Manual) Lymphocytes % (Manual) Eosinophils % (Manual) Seg Neutrophils # Lymphocytes # (Manual) Eosinophils # (Manual) PT INR D-Dimer POC ABG pH POC ABG pCO2 POC ABG pO2 ABG pO2 ABG HCO3 ABG Base Excess ABG Hemoglobin Oxyhemoglobin Sodium Potassium Chloride Carbon Dioxide BUN Creatinine Glucose POC Glucose 114 H 114 H 114 H Calcium Phosphorus Magnesium Iron TIBC Transferrin Ferritin ALT Alkaline Phosphatase Total Creatine Kinase CK-MB (CK-2) Rel Index Troponin T Albumin LDL Cholesterol Direct PTH Intact Salicylates Acetaminophen Crossmatch 04/15/19 04/15/19 04/16/19 11:50 23:39 05:41 WBC RBC Hgb Hct MCV MCH MCHC RDW Plt Count Lymph % (Auto) Saunders % (Auto) Eos % (Auto) Baso % (Auto) Lymph # Saunders # Eos # Baso # Seg Neutrophils % Seg Neuts % (Manual) Lymphocytes % (Manual) Eosinophils % (Manual) Seg Neutrophils # Lymphocytes # (Manual) Eosinophils # (Manual) PT INR D-Dimer POC ABG pH POC ABG pCO2 POC ABG pO2 ABG pO2 ABG HCO3 ABG Base Excess ABG Hemoglobin Oxyhemoglobin Sodium Potassium Chloride Carbon Dioxide BUN Creatinine Glucose POC Glucose 109 H 115 H 125 H Calcium Phosphorus Magnesium Iron TIBC Transferrin Ferritin ALT Alkaline Phosphatase Total Creatine Kinase CK-MB (CK-2) Rel Index Troponin T Albumin LDL Cholesterol Direct PTH Intact Salicylates Acetaminophen Crossmatch 04/16/19 04/17/19 04/17/19 12:53 01:00 12:38 WBC RBC Hgb Hct MCV MCH MCHC RDW Plt Count Lymph % (Auto) Saunders % (Auto) Eos % (Auto) Baso % (Auto) Lymph # Saunders # Eos # Baso # Seg Neutrophils % Seg Neuts % (Manual) Lymphocytes % (Manual) Eosinophils % (Manual) Seg Neutrophils # Lymphocytes # (Manual) Eosinophils # (Manual) PT INR D-Dimer POC ABG pH POC ABG pCO2 POC ABG pO2 ABG pO2 ABG HCO3 ABG Base Excess ABG Hemoglobin Oxyhemoglobin Sodium Potassium Chloride Carbon Dioxide BUN Creatinine Glucose POC Glucose 121 H 127 H 159 H Calcium Phosphorus Magnesium Iron TIBC Transferrin Ferritin ALT Alkaline Phosphatase Total Creatine Kinase CK-MB (CK-2) Rel Index Troponin T Albumin LDL Cholesterol Direct PTH Intact Salicylates Acetaminophen Crossmatch 04/17/19 04/17/19 04/18/19 18:27 23:36 07:19 WBC RBC 3.49 L Hgb 9.0 L Hct 29.9 L MCV MCH 26 L MCHC 30 L RDW 20.0 H Plt Count Lymph % (Auto) Saunders % (Auto) Eos % (Auto) Baso % (Auto) Lymph # Saunders # Eos # Baso # Seg Neutrophils % Seg Neuts % (Manual) Lymphocytes % (Manual) Eosinophils % (Manual) Seg Neutrophils # Lymphocytes # (Manual) Eosinophils # (Manual) PT INR D-Dimer POC ABG pH POC ABG pCO2 POC ABG pO2 ABG pO2 ABG HCO3 ABG Base Excess ABG Hemoglobin Oxyhemoglobin Sodium Potassium Chloride Carbon Dioxide BUN Creatinine Glucose POC Glucose 109 H 134 H Calcium Phosphorus Magnesium Iron TIBC Transferrin Ferritin ALT Alkaline Phosphatase Total Creatine Kinase CK-MB (CK-2) Rel Index Troponin T Albumin LDL Cholesterol Direct PTH Intact Salicylates Acetaminophen Crossmatch 04/18/19 04/18/19 04/18/19 07:19 12:16 17:09 WBC RBC Hgb Hct MCV MCH MCHC RDW Plt Count Lymph % (Auto) Saunders % (Auto) Eos % (Auto) Baso % (Auto) Lymph # Saunders # Eos # Baso # Seg Neutrophils % Seg Neuts % (Manual) Lymphocytes % (Manual) Eosinophils % (Manual) Seg Neutrophils # Lymphocytes # (Manual) Eosinophils # (Manual) PT INR D-Dimer POC ABG pH POC ABG pCO2 POC ABG pO2 ABG pO2 ABG HCO3 ABG Base Excess ABG Hemoglobin Oxyhemoglobin Sodium Potassium Chloride Carbon Dioxide BUN 41 H Creatinine 2.9 H Glucose 122 H POC Glucose 125 H 131 H Calcium Phosphorus Magnesium Iron TIBC Transferrin Ferritin ALT Alkaline Phosphatase Total Creatine Kinase CK-MB (CK-2) Rel Index Troponin T Albumin LDL Cholesterol Direct PTH Intact Salicylates Acetaminophen Crossmatch 04/18/19 04/19/19 04/19/19 23:57 05:55 11:35 WBC RBC Hgb Hct MCV MCH MCHC RDW Plt Count Lymph % (Auto) Saunders % (Auto) Eos % (Auto) Baso % (Auto) Lymph # Saunders # Eos # Baso # Seg Neutrophils % Seg Neuts % (Manual) Lymphocytes % (Manual) Eosinophils % (Manual) Seg Neutrophils # Lymphocytes # (Manual) Eosinophils # (Manual) PT INR D-Dimer POC ABG pH POC ABG pCO2 POC ABG pO2 ABG pO2 ABG HCO3 ABG Base Excess ABG Hemoglobin Oxyhemoglobin Sodium Potassium Chloride Carbon Dioxide BUN Creatinine Glucose POC Glucose 159 H 144 H 177 H Calcium Phosphorus Magnesium Iron TIBC Transferrin Ferritin ALT Alkaline Phosphatase Total Creatine Kinase CK-MB (CK-2) Rel Index Troponin T Albumin LDL Cholesterol Direct PTH Intact Salicylates Acetaminophen Crossmatch 04/19/19 04/20/19 04/20/19 16:36 02:05 06:28 WBC RBC Hgb Hct MCV MCH MCHC RDW Plt Count Lymph % (Auto) Saunders % (Auto) Eos % (Auto) Baso % (Auto) Lymph # Saunders # Eos # Baso # Seg Neutrophils % Seg Neuts % (Manual) Lymphocytes % (Manual) Eosinophils % (Manual) Seg Neutrophils # Lymphocytes # (Manual) Eosinophils # (Manual) PT INR D-Dimer POC ABG pH POC ABG pCO2 POC ABG pO2 ABG pO2 ABG HCO3 ABG Base Excess ABG Hemoglobin Oxyhemoglobin Sodium Potassium Chloride Carbon Dioxide BUN Creatinine Glucose POC Glucose 134 H 142 H 132 H Calcium Phosphorus Magnesium Iron TIBC Transferrin Ferritin ALT Alkaline Phosphatase Total Creatine Kinase CK-MB (CK-2) Rel Index Troponin T Albumin LDL Cholesterol Direct PTH Intact Salicylates Acetaminophen Crossmatch 04/20/19 04/20/19 04/21/19 12:37 23:34 05:59 WBC RBC Hgb Hct MCV MCH MCHC RDW Plt Count Lymph % (Auto) Saunders % (Auto) Eos % (Auto) Baso % (Auto) Lymph # Saunders # Eos # Baso # Seg Neutrophils % Seg Neuts % (Manual) Lymphocytes % (Manual) Eosinophils % (Manual) Seg Neutrophils # Lymphocytes # (Manual) Eosinophils # (Manual) PT INR D-Dimer POC ABG pH POC ABG pCO2 POC ABG pO2 ABG pO2 ABG HCO3 ABG Base Excess ABG Hemoglobin Oxyhemoglobin Sodium Potassium Chloride Carbon Dioxide BUN Creatinine Glucose POC Glucose 163 H 166 H 140 H Calcium Phosphorus Magnesium Iron TIBC Transferrin Ferritin ALT Alkaline Phosphatase Total Creatine Kinase CK-MB (CK-2) Rel Index Troponin T Albumin LDL Cholesterol Direct PTH Intact Salicylates Acetaminophen Crossmatch 04/21/19 04/21/19 04/21/19 12:07 17:22 23:43 WBC RBC Hgb Hct MCV MCH MCHC RDW Plt Count Lymph % (Auto) Saunders % (Auto) Eos % (Auto) Baso % (Auto) Lymph # Saunders # Eos # Baso # Seg Neutrophils % Seg Neuts % (Manual) Lymphocytes % (Manual) Eosinophils % (Manual) Seg Neutrophils # Lymphocytes # (Manual) Eosinophils # (Manual) PT INR D-Dimer POC ABG pH POC ABG pCO2 POC ABG pO2 ABG pO2 ABG HCO3 ABG Base Excess ABG Hemoglobin Oxyhemoglobin Sodium Potassium Chloride Carbon Dioxide BUN Creatinine Glucose POC Glucose 135 H 141 H 138 H Calcium Phosphorus Magnesium Iron TIBC Transferrin Ferritin ALT Alkaline Phosphatase Total Creatine Kinase CK-MB (CK-2) Rel Index Troponin T Albumin LDL Cholesterol Direct PTH Intact Salicylates Acetaminophen Crossmatch 04/22/19 04/22/19 04/22/19 05:12 18:24 23:49 WBC RBC Hgb Hct MCV MCH MCHC RDW Plt Count Lymph % (Auto) Saunders % (Auto) Eos % (Auto) Baso % (Auto) Lymph # Saunders # Eos # Baso # Seg Neutrophils % Seg Neuts % (Manual) Lymphocytes % (Manual) Eosinophils % (Manual) Seg Neutrophils # Lymphocytes # (Manual) Eosinophils # (Manual) PT INR D-Dimer POC ABG pH POC ABG pCO2 POC ABG pO2 ABG pO2 ABG HCO3 ABG Base Excess ABG Hemoglobin Oxyhemoglobin Sodium Potassium Chloride Carbon Dioxide BUN Creatinine Glucose POC Glucose 141 H 137 H 142 H Calcium Phosphorus Magnesium Iron TIBC Transferrin Ferritin ALT Alkaline Phosphatase Total Creatine Kinase CK-MB (CK-2) Rel Index Troponin T Albumin LDL Cholesterol Direct PTH Intact Salicylates Acetaminophen Crossmatch 04/23/19 04/23/1904/23/19 05:53 08:13 11:58 WBC RBC Hgb Hct MCV MCH MCHC RDW Plt Count Lymph % (Auto) Saunders % (Auto) Eos % (Auto) Baso % (Auto) Lymph # Saunders # Eos # Baso # Seg Neutrophils % Seg Neuts % (Manual) Lymphocytes % (Manual) Eosinophils % (Manual) Seg Neutrophils # Lymphocytes # (Manual) Eosinophils # (Manual) PT INR D-Dimer POC ABG pH POC ABG pCO2 POC ABG pO2 ABG pO2 ABG HCO3 ABG Base Excess ABG Hemoglobin Oxyhemoglobin Sodium Potassium Chloride Carbon Dioxide BUN Creatinine Glucose POC Glucose 132 H 154 H 165 H Calcium Phosphorus Magnesium Iron TIBC Transferrin Ferritin ALT Alkaline Phosphatase Total Creatine Kinase CK-MB (CK-2) Rel Index Troponin T Albumin LDL Cholesterol Direct PTH Intact Salicylates Acetaminophen Crossmatch 04/23/19 04/24/19 04/24/19 16:28 00:28 07:00 WBC RBC Hgb Hct MCV MCH MCHC RDW Plt Count Lymph % (Auto) Saunders % (Auto) Eos % (Auto) Baso % (Auto) Lymph # Saunders # Eos # Baso # Seg Neutrophils % Seg Neuts % (Manual) Lymphocytes % (Manual) Eosinophils % (Manual) Seg Neutrophils # Lymphocytes # (Manual) Eosinophils # (Manual) PT INR D-Dimer POC ABG pH POC ABG pCO2 POC ABG pO2 ABG pO2 ABG HCO3 ABG Base Excess ABG Hemoglobin Oxyhemoglobin Sodium Potassium Chloride Carbon Dioxide BUN Creatinine Glucose POC Glucose 136 H 140 H 141 H Calcium Phosphorus Magnesium Iron TIBC Transferrin Ferritin ALT Alkaline Phosphatase Total Creatine Kinase CK-MB (CK-2) Rel Index Troponin T Albumin LDL Cholesterol Direct PTH Intact Salicylates Acetaminophen Crossmatch 04/24/19 04/24/19 04/25/19 12:38 18:57 00:38 WBC RBC Hgb Hct MCV MCH MCHC RDW Plt Count Lymph % (Auto) Saunders % (Auto) Eos % (Auto) Baso % (Auto) Lymph # Saunders # Eos # Baso # Seg Neutrophils % Seg Neuts % (Manual) Lymphocytes % (Manual) Eosinophils % (Manual) Seg Neutrophils # Lymphocytes # (Manual) Eosinophils # (Manual) PT INR D-Dimer POC ABG pH POC ABG pCO2 POC ABG pO2 ABG pO2 ABG HCO3 ABG Base Excess ABG Hemoglobin Oxyhemoglobin Sodium Potassium Chloride Carbon Dioxide BUN Creatinine Glucose POC Glucose 152 H 166 H 128 H Calcium Phosphorus Magnesium Iron TIBC Transferrin Ferritin ALT Alkaline Phosphatase Total Creatine Kinase CK-MB (CK-2) Rel Index Troponin T Albumin LDL Cholesterol Direct PTH Intact Salicylates Acetaminophen Crossmatch 04/25/19 04/25/19 04/25/19 05:44 13:43 18:34 WBC RBC Hgb Hct MCV MCH MCHC RDW Plt Count Lymph % (Auto) Saunders % (Auto) Eos % (Auto) Baso % (Auto) Lymph # Saunders # Eos # Baso # Seg Neutrophils % Seg Neuts % (Manual) Lymphocytes % (Manual) Eosinophils % (Manual) Seg Neutrophils # Lymphocytes # (Manual) Eosinophils # (Manual) PT INR D-Dimer POC ABG pH POC ABG pCO2 POC ABG pO2 ABG pO2 ABG HCO3 ABG Base Excess ABG Hemoglobin Oxyhemoglobin Sodium Potassium Chloride Carbon Dioxide BUN Creatinine Glucose POC Glucose 153 H 186 H 124 H Calcium Phosphorus Magnesium Iron TIBC Transferrin Ferritin ALT Alkaline Phosphatase Total Creatine Kinase CK-MB (CK-2) Rel Index Troponin T Albumin LDL Cholesterol Direct PTH Intact Salicylates Acetaminophen Crossmatch 04/26/19 04/26/19 04/26/19 00:59 05:52 10:12 WBC 11.5 H RBC 2.84 L Hgb 7.4 L Hct 23.3 L MCV 82 L MCH 26 L MCHC RDW 20.3 H Plt Count Lymph % (Auto) 7.5 L Saunders % (Auto) 7.5 H Eos % (Auto) 5.3 H Baso % (Auto) Lymph # 0.9 L Saunders # 0.9 H Eos # 0.6 H Baso # Seg Neutrophils % 79.2 H Seg Neuts % (Manual) Lymphocytes % (Manual) Eosinophils % (Manual) Seg Neutrophils # 9.1 H Lymphocytes # (Manual) Eosinophils # (Manual) PT INR D-Dimer POC ABG pH POC ABG pCO2 POC ABG pO2 ABG pO2 ABG HCO3 ABG Base Excess ABG Hemoglobin Oxyhemoglobin Sodium Potassium Chloride Carbon Dioxide BUN Creatinine Glucose POC Glucose 163 H 146 H Calcium Phosphorus Magnesium Iron TIBC Transferrin Ferritin ALT Alkaline Phosphatase Total Creatine Kinase CK-MB (CK-2) Rel Index Troponin T Albumin LDL Cholesterol Direct PTH Intact Salicylates Acetaminophen Crossmatch 04/26/19 04/26/19 04/26/19 10:12 12:15 19:00 WBC RBC Hgb Hct MCV MCH MCHC RDW Plt Count Lymph % (Auto) Saunders % (Auto) Eos % (Auto) Baso % (Auto) Lymph # Saunders # Eos # Baso # Seg Neutrophils % Seg Neuts % (Manual) Lymphocytes % (Manual) Eosinophils % (Manual) Seg Neutrophils # Lymphocytes # (Manual) Eosinophils # (Manual) PT INR D-Dimer POC ABG pH POC ABG pCO2 POC ABG pO2 ABG pO2 ABG HCO3 ABG Base Excess ABG Hemoglobin Oxyhemoglobin Sodium 130 L Potassium Chloride 87.4 L Carbon Dioxide BUN 93 H Creatinine 4.2 H Glucose 140 H POC Glucose 155 H 179 H Calcium Phosphorus Magnesium Iron TIBC Transferrin Ferritin ALT Alkaline Phosphatase Total Creatine Kinase CK-MB (CK-2) Rel Index Troponin T Albumin LDL Cholesterol Direct PTH Intact Salicylates Acetaminophen Crossmatch 04/27/19 04/27/19 04/27/19 00:23 06:34 17:13 WBC RBC Hgb Hct MCV MCH MCHC RDW Plt Count Lymph % (Auto) Saunders % (Auto) Eos % (Auto) Baso % (Auto) Lymph # Saunders # Eos # Baso # Seg Neutrophils % Seg Neuts % (Manual) Lymphocytes % (Manual) Eosinophils % (Manual) Seg Neutrophils # Lymphocytes # (Manual) Eosinophils # (Manual) PT INR D-Dimer POC ABG pH POC ABG pCO2 POC ABG pO2 ABG pO2 ABG HCO3 ABG Base Excess ABG Hemoglobin Oxyhemoglobin Sodium Potassium Chloride Carbon Dioxide BUN Creatinine Glucose POC Glucose 158 H 140 H 152 H Calcium Phosphorus Magnesium Iron TIBC Transferrin Ferritin ALT Alkaline Phosphatase Total Creatine Kinase CK-MB (CK-2) Rel Index Troponin T Albumin LDL Cholesterol Direct PTH Intact Salicylates Acetaminophen Crossmatch 04/27/19 04/28/19 04/28/19 23:50 05:18 11:37 WBC RBC Hgb Hct MCV MCH MCHC RDW Plt Count Lymph % (Auto) Saunders % (Auto) Eos % (Auto) Baso % (Auto) Lymph # Saunders # Eos # Baso # Seg Neutrophils % Seg Neuts % (Manual) Lymphocytes % (Manual) Eosinophils % (Manual) Seg Neutrophils # Lymphocytes # (Manual) Eosinophils # (Manual) PT INR D-Dimer POC ABG pH POC ABG pCO2 POC ABG pO2 ABG pO2 ABG HCO3 ABG Base Excess ABG Hemoglobin Oxyhemoglobin Sodium Potassium Chloride Carbon Dioxide BUN Creatinine Glucose POC Glucose 160 H 145 H 177 H Calcium Phosphorus Magnesium Iron TIBC Transferrin Ferritin ALT Alkaline Phosphatase Total Creatine Kinase CK-MB (CK-2) Rel Index Troponin T Albumin LDL Cholesterol Direct PTH Intact Salicylates Acetaminophen Crossmatch 04/28/19 04/28/19 04/29/19 18:31 23:47 05:50 WBC RBC Hgb Hct MCV MCH MCHC RDW Plt Count Lymph % (Auto) Saunders % (Auto) Eos % (Auto) Baso % (Auto) Lymph # Saunders # Eos # Baso # Seg Neutrophils % Seg Neuts % (Manual) Lymphocytes % (Manual) Eosinophils % (Manual) Seg Neutrophils # Lymphocytes # (Manual) Eosinophils # (Manual) PT INR D-Dimer POC ABG pH POC ABG pCO2 POC ABG pO2 ABG pO2 ABG HCO3 ABG Base Excess ABG Hemoglobin Oxyhemoglobin Sodium Potassium Chloride Carbon Dioxide BUN Creatinine Glucose POC Glucose 153 H 117 H 177 H Calcium Phosphorus Magnesium Iron TIBC Transferrin Ferritin ALT Alkaline Phosphatase Total Creatine Kinase CK-MB (CK-2) Rel Index Troponin T Albumin LDL Cholesterol Direct PTH Intact Salicylates Acetaminophen Crossmatch 04/29/19 04/30/19 04/30/19 17:04 01:02 06:42 WBC RBC Hgb Hct MCV MCH MCHC RDW Plt Count Lymph % (Auto) Saunders % (Auto) Eos % (Auto) Baso % (Auto) Lymph # Saunders # Eos # Baso # Seg Neutrophils % Seg Neuts % (Manual) Lymphocytes % (Manual) Eosinophils % (Manual) Seg Neutrophils # Lymphocytes # (Manual) Eosinophils # (Manual) PT INR D-Dimer POC ABG pH POC ABG pCO2 POC ABG pO2 ABG pO2 ABG HCO3 ABG Base Excess ABG Hemoglobin Oxyhemoglobin Sodium Potassium Chloride Carbon Dioxide BUN Creatinine Glucose POC Glucose 205 H 143 H 145 H Calcium Phosphorus Magnesium Iron TIBC Transferrin Ferritin ALT Alkaline Phosphatase Total Creatine Kinase CK-MB (CK-2) Rel Index Troponin T Albumin LDL Cholesterol Direct PTH Intact Salicylates Acetaminophen Crossmatch 04/30/19 04/30/19 04/30/19 11:31 18:12 23:38 WBC RBC Hgb Hct MCV MCH MCHC RDW Plt Count Lymph % (Auto) Saunders % (Auto) Eos % (Auto) Baso % (Auto) Lymph # Saunders # Eos # Baso # Seg Neutrophils % Seg Neuts % (Manual) Lymphocytes % (Manual) Eosinophils % (Manual) Seg Neutrophils # Lymphocytes # (Manual) Eosinophils # (Manual) PT INR D-Dimer POC ABG pH POC ABG pCO2 POC ABG pO2 ABG pO2 ABG HCO3 ABG Base Excess ABG Hemoglobin Oxyhemoglobin Sodium Potassium Chloride Carbon Dioxide BUN Creatinine Glucose POC Glucose 162 H 117 H 139 H Calcium Phosphorus Magnesium Iron TIBC Transferrin Ferritin ALT Alkaline Phosphatase Total Creatine Kinase CK-MB (CK-2) Rel Index Troponin T Albumin LDL Cholesterol Direct PTH Intact Salicylates Acetaminophen Crossmatch 05/01/19 05/01/19 05/02/19 06:06 23:41 05:59 WBC RBC Hgb Hct MCV MCH MCHC RDW Plt Count Lymph % (Auto) Saunders % (Auto) Eos % (Auto) Baso % (Auto) Lymph # Saunders # Eos # Baso # Seg Neutrophils % Seg Neuts % (Manual) Lymphocytes % (Manual) Eosinophils % (Manual) Seg Neutrophils # Lymphocytes # (Manual) Eosinophils # (Manual) PT INR D-Dimer POC ABG pH POC ABG pCO2 POC ABG pO2 ABG pO2 ABG HCO3 ABG Base Excess ABG Hemoglobin Oxyhemoglobin Sodium Potassium Chloride Carbon Dioxide BUN Creatinine Glucose POC Glucose 150 H 140 H 130 H Calcium Phosphorus Magnesium Iron TIBC Transferrin Ferritin ALT Alkaline Phosphatase Total Creatine Kinase CK-MB (CK-2) Rel Index Troponin T Albumin LDL Cholesterol Direct PTH Intact Salicylates Acetaminophen Crossmatch 05/02/19 05/02/19 05/03/19 11:55 18:10 00:15 WBC RBC Hgb Hct MCV MCH MCHC RDW Plt Count Lymph % (Auto) Saunders % (Auto) Eos % (Auto) Baso % (Auto) Lymph # Saunders # Eos # Baso # Seg Neutrophils % Seg Neuts % (Manual) Lymphocytes % (Manual) Eosinophils % (Manual) Seg Neutrophils # Lymphocytes # (Manual) Eosinophils # (Manual) PT INR D-Dimer POC ABG pH POC ABG pCO2 POC ABG pO2 ABG pO2 ABG HCO3 ABG Base Excess ABG Hemoglobin Oxyhemoglobin Sodium Potassium Chloride Carbon Dioxide BUN Creatinine Glucose POC Glucose 146 H 141 H 145 H Calcium Phosphorus Magnesium Iron TIBC Transferrin Ferritin ALT Alkaline Phosphatase Total Creatine Kinase CK-MB (CK-2) Rel Index Troponin T Albumin LDL Cholesterol Direct PTH Intact Salicylates Acetaminophen Crossmatch 05/03/19 05/03/19 05/03/19 05:49 05:49 06:01 WBC RBC 2.84 L Hgb 7.2 L Hct 22.9 L MCV 81 L MCH 26 L MCHC RDW 20.6 H Plt Count 456 H Lymph % (Auto) 11.8 L Saunders % (Auto) Eos % (Auto) 10.6 H Baso % (Auto) Lymph # 1.1 L Saunders # Eos # 1.0 H Baso # Seg Neutrophils % 70.4 H Seg Neuts % (Manual) Lymphocytes % (Manual) Eosinophils % (Manual) Seg Neutrophils # Lymphocytes # (Manual) Eosinophils # (Manual) PT INR D-Dimer POC ABG pH POC ABG pCO2 POC ABG pO2 ABG pO2 ABG HCO3 ABG Base Excess ABG Hemoglobin Oxyhemoglobin Sodium Potassium Chloride 94.8 L Carbon Dioxide BUN 66 H Creatinine 3.6 H Glucose 129 H POC Glucose 135 H Calcium Phosphorus Magnesium Iron TIBC Transferrin Ferritin ALT Alkaline Phosphatase Total Creatine Kinase CK-MB (CK-2) Rel Index Troponin T Albumin LDL Cholesterol Direct PTH Intact Salicylates Acetaminophen Crossmatch 05/03/19 05/03/19 05/04/19 11:04 18:40 00:06 WBC RBC Hgb Hct MCV MCH MCHC RDW Plt Count Lymph % (Auto) Saunders % (Auto) Eos % (Auto) Baso % (Auto) Lymph # Saunders # Eos # Baso # Seg Neutrophils % Seg Neuts % (Manual) Lymphocytes % (Manual) Eosinophils % (Manual) Seg Neutrophils # Lymphocytes # (Manual) Eosinophils # (Manual) PT INR D-Dimer POC ABG pH POC ABG pCO2 POC ABG pO2 ABG pO2 ABG HCO3 ABG Base Excess ABG Hemoglobin Oxyhemoglobin Sodium Potassium Chloride Carbon Dioxide BUN Creatinine Glucose POC Glucose 191 H 167 H 137 H Calcium Phosphorus Magnesium Iron TIBC Transferrin Ferritin ALT Alkaline Phosphatase Total Creatine Kinase CK-MB (CK-2) Rel Index Troponin T Albumin LDL Cholesterol Direct PTH Intact Salicylates Acetaminophen Crossmatch 05/04/19 05/04/19 05/04/19 06:44 07:30 07:30 WBC 15.8 H RBC 2.74 L Hgb 6.7 L Hct 22.2 L MCV 81 L MCH 24 L MCHC 30 L RDW 20.4 H Plt Count 450 H Lymph % (Auto) 5.1 L Saunders % (Auto) Eos % (Auto) Baso % (Auto) Lymph # 0.8 L Saunders # Eos # 0.6 H Baso # Seg Neutrophils % 86.3 H Seg Neuts % (Manual) Lymphocytes % (Manual) Eosinophils % (Manual) Seg Neutrophils # 13.6 H Lymphocytes # (Manual) Eosinophils # (Manual) PT INR D-Dimer POC ABG pH POC ABG pCO2 POC ABG pO2 ABG pO2 ABG HCO3 ABG Base Excess ABG Hemoglobin Oxyhemoglobin Sodium Potassium Chloride 95.2 L Carbon Dioxide BUN 92 H Creatinine 4.8 H Glucose 139 H POC Glucose 153 H Calcium Phosphorus Magnesium Iron TIBC Transferrin Ferritin ALT Alkaline Phosphatase Total Creatine Kinase CK-MB (CK-2) Rel Index Troponin T Albumin LDL Cholesterol Direct PTH Intact Salicylates Acetaminophen Crossmatch 05/04/19 05/04/19 05/05/19 12:55 16:31 01:02 WBC RBC Hgb Hct MCV MCH MCHC RDW Plt Count Lymph % (Auto) Saunders % (Auto) Eos % (Auto) Baso % (Auto) Lymph # Saunders # Eos # Baso # Seg Neutrophils % Seg Neuts % (Manual) Lymphocytes % (Manual) Eosinophils % (Manual) Seg Neutrophils # Lymphocytes # (Manual) Eosinophils # (Manual) PT INR D-Dimer POC ABG pH POC ABG pCO2 POC ABG pO2 ABG pO2 ABG HCO3 ABG Base Excess ABG Hemoglobin Oxyhemoglobin Sodium Potassium Chloride Carbon Dioxide BUN Creatinine Glucose POC Glucose 169 H 171 H Calcium Phosphorus Magnesium Iron TIBC Transferrin Ferritin ALT Alkaline Phosphatase Total Creatine Kinase CK-MB (CK-2) Rel Index Troponin T Albumin LDL Cholesterol Direct PTH Intact Salicylates Acetaminophen Crossmatch See Detail 05/05/19 05/05/19 05/05/19 05:26 05:36 11:48 WBC 12.6 H RBC 2.73 L Hgb 6.9 L Hct 22.3 L MCV 82 L MCH 25 L MCHC 31 L RDW 21.0 H Plt Count Lymph % (Auto) 8.9 L Saunders % (Auto) Eos % (Auto) Baso % (Auto) Lymph # 1.1 L Saunders # 0.9 H Eos # Baso # Seg Neutrophils % 80.7 H Seg Neuts % (Manual) Lymphocytes % (Manual) Eosinophils % (Manual) Seg Neutrophils # 10.2 H Lymphocytes # (Manual) Eosinophils # (Manual) PT INR D-Dimer POC ABG pH POC ABG pCO2 POC ABG pO2 ABG pO2 ABG HCO3 ABG Base Excess ABG Hemoglobin Oxyhemoglobin Sodium Potassium Chloride Carbon Dioxide BUN Creatinine Glucose POC Glucose 153 H 173 H Calcium Phosphorus Magnesium Iron TIBC Transferrin Ferritin ALT Alkaline Phosphatase Total Creatine Kinase CK-MB (CK-2) Rel Index Troponin T Albumin LDL Cholesterol Direct PTH Intact Salicylates Acetaminophen Crossmatch 05/05/19 05/06/19 05/06/19 16:42 02:24 06:12 WBC RBC Hgb Hct MCV MCH MCHC RDW Plt Count Lymph % (Auto) Saunders % (Auto) Eos % (Auto) Baso % (Auto) Lymph # Saunders # Eos # Baso # Seg Neutrophils % Seg Neuts % (Manual) Lymphocytes % (Manual) Eosinophils % (Manual) Seg Neutrophils # Lymphocytes # (Manual) Eosinophils # (Manual) PT INR D-Dimer POC ABG pH POC ABG pCO2 POC ABG pO2 ABG pO2 ABG HCO3 ABG Base Excess ABG Hemoglobin Oxyhemoglobin Sodium Potassium Chloride Carbon Dioxide BUN Creatinine Glucose POC Glucose 126 H 138 H 151 H Calcium Phosphorus Magnesium Iron TIBC Transferrin Ferritin ALT Alkaline Phosphatase Total Creatine Kinase CK-MB (CK-2) Rel Index Troponin T Albumin LDL Cholesterol Direct PTH Intact Salicylates Acetaminophen Crossmatch 05/06/19 05/06/19 05/06/19 08:15 16:48 23:16 WBC 11.8 H RBC 2.72 L Hgb 6.7 L Hct 21.7 L MCV 80 L MCH 25 L MCHC 31 L RDW 20.9 H Plt Count Lymph % (Auto) [place]unders % (Auto) Eos % (Auto) Baso % (Auto) Lymph # Saunders # Eos # Baso # Seg Neutrophils % Seg Neuts % (Manual) Lymphocytes % (Manual) Eosinophils % (Manual) Seg Neutrophils # Lymphocytes # (Manual) Eosinophils # (Manual) PT INR D-Dimer POC ABG pH POC ABG pCO2 POC ABG pO2 ABG pO2 ABG HCO3 ABG Base Excess ABG Hemoglobin Oxyhemoglobin Sodium Potassium Chloride Carbon Dioxide BUN Creatinine Glucose POC Glucose 153 H 143 H Calcium Phosphorus Magnesium Iron TIBC Transferrin Ferritin ALT Alkaline Phosphatase Total Creatine Kinase CK-MB (CK-2) Rel Index Troponin T Albumin LDL Cholesterol Direct PTH Intact Salicylates Acetaminophen Crossmatch 05/07/19 05/07/1905/07/19 06:00 06:30 12:33 WBC RBC 3.53 L Hgb 9.1 L Hct 28.6 L D MCV 81 L MCH 26 L MCHC RDW 19.1 H Plt Count Lymph % (Auto) 9.6 L Saunders % (Auto) Eos % (Auto) 4.8 H Baso % (Auto) Lymph # 1.1 L Saunders # Eos # 0.5 H Baso # Seg Neutrophils % 77.8 H Seg Neuts % (Manual) Lymphocytes % (Manual) Eosinophils % (Manual) Seg Neutrophils # 8.6 H Lymphocytes # (Manual) Eosinophils # (Manual) PT INR D-Dimer POC ABG pH POC ABG pCO2 POC ABG pO2 ABG pO2 ABG HCO3 ABG Base Excess ABG Hemoglobin Oxyhemoglobin Sodium Potassium Chloride Carbon Dioxide BUN Creatinine Glucose POC Glucose 122 H 140 H Calcium Phosphorus Magnesium Iron TIBC Transferrin Ferritin ALT Alkaline Phosphatase Total Creatine Kinase CK-MB (CK-2) Rel Index Troponin T Albumin LDL Cholesterol Direct PTH Intact Salicylates Acetaminophen Crossmatch 05/07/19 05/07/19 05/08/19 16:41 23:55 05:10 WBC 11.6 H RBC 3.54 L Hgb 9.1 L Hct 29.1 L MCV 82 L MCH 26 L MCHC 31 L RDW 19.6 H Plt Count Lymph % (Auto) 6.6 L Saunders % (Auto) Eos % (Auto) Baso % (Auto) 1.9 H Lymph # 0.8 L Saunders # Eos # Baso # 0.2 H Seg Neutrophils % 82.6 H Seg Neuts % (Manual) Lymphocytes % (Manual) Eosinophils % (Manual) Seg Neutrophils # 9.6 H Lymphocytes # (Manual) Eosinophils # (Manual) PT INR D-Dimer POC ABG pH POC ABG pCO2 POC ABG pO2 ABG pO2 ABG HCO3 ABG Base Excess ABG Hemoglobin Oxyhemoglobin Sodium Potassium Chloride Carbon Dioxide BUN Creatinine Glucose POC Glucose 143 H 153 H Calcium Phosphorus Magnesium Iron TIBC Transferrin Ferritin ALT Alkaline Phosphatase Total Creatine Kinase CK-MB (CK-2) Rel Index Troponin T Albumin LDL Cholesterol Direct PTH Intact Salicylates Acetaminophen Crossmatch 05/08/19 05/08/19 05/09/19 06:09 16:55 03:27 WBC RBC Hgb Hct MCV MCH MCHC RDW Plt Count Lymph % (Auto) [place]unders % (Auto) Eos % (Auto) Baso % (Auto) Lymph # Saunders # Eos # Baso # Seg Neutrophils % Seg Neuts % (Manual) Lymphocytes % (Manual) Eosinophils % (Manual) Seg Neutrophils # Lymphocytes # (Manual) Eosinophils # (Manual) PT INR D-Dimer POC ABG pH POC ABG pCO2 POC ABG pO2 ABG pO2 ABG HCO3 ABG Base Excess ABG Hemoglobin Oxyhemoglobin Sodium Potassium Chloride Carbon Dioxide BUN Creatinine Glucose POC Glucose 204 H 196 H 175 H Calcium Phosphorus Magnesium Iron TIBC Transferrin Ferritin ALT Alkaline Phosphatase Total Creatine Kinase CK-MB (CK-2) Rel Index Troponin T Albumin LDL Cholesterol Direct PTH Intact Salicylates Acetaminophen Crossmatch 05/09/19 05/09/19 05/09/19 06:00 11:00 12:41 WBC 12.0 H RBC Hgb 9.7 L Hct 30.2 L MCV 83 L MCH 26 L MCHC RDW 20.1 H Plt Count Lymph % (Auto) 7.4 L Saunders % (Auto) 7.6 H Eos % (Auto) Baso % (Auto) Lymph # 0.9 L Saunders # 0.9 H Eos # Baso # Seg Neutrophils % 80.7 H Seg Neuts % (Manual) Lymphocytes % (Manual) Eosinophils % (Manual) Seg Neutrophils # 9.7 H Lymphocytes # (Manual) Eosinophils # (Manual) PT INR D-Dimer POC ABG pH POC ABG pCO2 POC ABG pO2 ABG pO2 ABG HCO3 ABG Base Excess ABG Hemoglobin Oxyhemoglobin Sodium Potassium Chloride Carbon Dioxide BUN Creatinine Glucose POC Glucose 172 H 168 H Calcium Phosphorus Magnesium Iron TIBC Transferrin Ferritin ALT Alkaline Phosphatase Total Creatine Kinase CK-MB (CK-2) Rel Index Troponin T Albumin LDL Cholesterol Direct PTH Intact Salicylates Acetaminophen Crossmatch 05/09/19 05/10/19 05/10/19 17:45 01:26 06:07 WBC RBC Hgb Hct MCV MCH MCHC RDW Plt Count Lymph % (Auto) Saunders % (Auto) Eos % (Auto) Baso % (Auto) Lymph # Saunders # Eos # Baso # Seg Neutrophils % Seg Neuts % (Manual) Lymphocytes % (Manual) Eosinophils % (Manual) Seg Neutrophils # Lymphocytes # (Manual) Eosinophils # (Manual) PT INR D-Dimer POC ABG pH POC ABG pCO2 POC ABG pO2 ABG pO2 ABG HCO3 ABG Base Excess ABG Hemoglobin Oxyhemoglobin Sodium Potassium Chloride Carbon Dioxide BUN Creatinine Glucose POC Glucose 167 H 174 H 179 H Calcium Phosphorus Magnesium Iron TIBC Transferrin Ferritin ALT Alkaline Phosphatase Total Creatine Kinase CK-MB (CK-2) Rel Index Troponin T Albumin LDL Cholesterol Direct PTH Intact Salicylates Acetaminophen Crossmatch 05/10/19 05/10/19 05/10/19 06:45 12:31 17:18 WBC RBC Hgb Hct MCV MCH MCHC RDW Plt Count Lymph % (Auto) [place]unders % (Auto) Eos % (Auto) Baso % (Auto) Lymph # Saunders # Eos # Baso # Seg Neutrophils % Seg Neuts % (Manual) Lymphocytes % (Manual) Eosinophils % (Manual) Seg Neutrophils # Lymphocytes # (Manual) Eosinophils # (Manual) PT INR D-Dimer POC ABG pH POC ABG pCO2 POC ABG pO2 ABG pO2 ABG HCO3 ABG Base Excess ABG Hemoglobin Oxyhemoglobin Sodium 134 L Potassium Chloride 90.2 L Carbon Dioxide BUN 82 H Creatinine 4.1 H Glucose 195 H POC Glucose 201 H 197 H Calcium Phosphorus Magnesium Iron TIBC Transferrin Ferritin ALT Alkaline Phosphatase Total Creatine Kinase CK-MB (CK-2) Rel Index Troponin T Albumin LDL Cholesterol Direct PTH Intact Salicylates Acetaminophen Crossmatch 05/11/19 05/11/19 05/11/19 00:20 06:30 17:38 WBC RBC Hgb Hct MCV MCH MCHC RDW Plt Count Lymph % (Auto) Saunders % (Auto) Eos % (Auto) Baso % (Auto) Lymph # Saunders # Eos # Baso # Seg Neutrophils % Seg Neuts % (Manual) Lymphocytes % (Manual) Eosinophils % (Manual) Seg Neutrophils # Lymphocytes # (Manual) Eosinophils # (Manual) PT INR D-Dimer POC ABG pH POC ABG pCO2 POC ABG pO2 ABG pO2 ABG HCO3 ABG Base Excess ABG Hemoglobin Oxyhemoglobin Sodium Potassium Chloride Carbon Dioxide BUN Creatinine Glucose POC Glucose 131 H 148 H 198 H Calcium Phosphorus Magnesium Iron TIBC Transferrin Ferritin ALT Alkaline Phosphatase Total Creatine Kinase CK-MB (CK-2) Rel Index Troponin T Albumin LDL Cholesterol Direct PTH Intact Salicylates Acetaminophen Crossmatch 05/12/19 05/12/19 05/12/19 00:44 06:13 07:15 WBC RBC 3.32 L Hgb 8.7 L Hct 27.8 L MCV MCH 26 L MCHC 31 L RDW 19.8 H Plt Count Lymph % (Auto) 6.9 L Saunders % (Auto) Eos % (Auto) 6.5 H Baso % (Auto) Lymph # 0.7 L Saunders # Eos # 0.6 H Baso # Seg Neutrophils % 78.6 H Seg Neuts % (Manual) Lymphocytes % (Manual) Eosinophils % (Manual) Seg Neutrophils # 7.8 H Lymphocytes # (Manual) Eosinophils # (Manual) PT INR D-Dimer POC ABG pH POC ABG pCO2 POC ABG pO2 ABG pO2 ABG HCO3 ABG Base Excess ABG Hemoglobin Oxyhemoglobin Sodium Potassium Chloride Carbon Dioxide BUN Creatinine Glucose POC Glucose 170 H 133 H Calcium Phosphorus Magnesium Iron TIBC Transferrin Ferritin ALT Alkaline Phosphatase Total Creatine Kinase CK-MB (CK-2) Rel Index Troponin T Albumin LDL Cholesterol Direct PTH Intact Salicylates Acetaminophen Crossmatch 05/12/19 05/12/19 05/12/19 07:15 11:17 17:37 WBC RBC Hgb Hct MCV MCH MCHC RDW Plt Count Lymph % (Auto) Saunders % (Auto) Eos % (Auto) Baso % (Auto) Lymph # Saunders # Eos # Baso # Seg Neutrophils % Seg Neuts % (Manual) Lymphocytes % (Manual) Eosinophils % (Manual) Seg Neutrophils # Lymphocytes # (Manual) Eosinophils # (Manual) PT INR D-Dimer POC ABG pH POC ABG pCO2 POC ABG pO2 ABG pO2 ABG HCO3 ABG Base Excess ABG Hemoglobin Oxyhemoglobin Sodium 135 L Potassium Chloride 94.2 L Carbon Dioxide BUN 59 H Creatinine 3.4 H Glucose 134 H POC Glucose 132 H 165 H Calcium Phosphorus Magnesium Iron TIBC Transferrin Ferritin ALT Alkaline Phosphatase Total Creatine Kinase CK-MB (CK-2) Rel Index Troponin T Albumin LDL Cholesterol Direct PTH Intact Salicylates Acetaminophen Crossmatch 05/13/19 05/13/19 05/13/19 00:15 05:44 16:00 WBC RBC Hgb Hct MCV MCH MCHC RDW Plt Count Lymph % (Auto) Saunders % (Auto) Eos % (Auto) Baso % (Auto) Lymph # Saunders # Eos # Baso # Seg Neutrophils % Seg Neuts % (Manual) Lymphocytes % (Manual) Eosinophils % (Manual) Seg Neutrophils # Lymphocytes # (Manual) Eosinophils # (Manual) PT INR D-Dimer POC ABG pH POC ABG pCO2 POC ABG pO2 ABG pO2 ABG HCO3 ABG Base Excess ABG Hemoglobin Oxyhemoglobin Sodium Potassium Chloride Carbon Dioxide BUN Creatinine Glucose POC Glucose 144 H 133 H 221 H Calcium Phosphorus Magnesium Iron TIBC Transferrin Ferritin ALT Alkaline Phosphatase Total Creatine Kinase CK-MB (CK-2) Rel Index Troponin T Albumin LDL Cholesterol Direct PTH Intact Salicylates Acetaminophen Crossmatch 05/14/19 05/14/19 05/14/19 06:44 11:56 16:42 WBC RBC Hgb Hct MCV MCH MCHC RDW Plt Count Lymph % (Auto) Saunders % (Auto) Eos % (Auto) Baso % (Auto) Lymph # Saunders # Eos # Baso # Seg Neutrophils % Seg Neuts % (Manual) Lymphocytes % (Manual) Eosinophils % (Manual) Seg Neutrophils # Lymphocytes # (Manual) Eosinophils # (Manual) PT INR D-Dimer POC ABG pH POC ABG pCO2 POC ABG pO2 ABG pO2 ABG HCO3 ABG Base Excess ABG Hemoglobin Oxyhemoglobin Sodium Potassium Chloride Carbon Dioxide BUN Creatinine Glucose POC Glucose 187 H 141 H 183 H Calcium Phosphorus Magnesium Iron TIBC Transferrin Ferritin ALT Alkaline Phosphatase Total Creatine Kinase CK-MB (CK-2) Rel Index Troponin T Albumin LDL Cholesterol Direct PTH Intact Salicylates Acetaminophen Crossmatch 05/15/19 05/15/19 05/15/19 00:11 05:55 18:46 WBC RBC Hgb Hct MCV MCH MCHC RDW Plt Count Lymph % (Auto) Saunders % (Auto) Eos % (Auto) Baso % (Auto) Lymph # Saunders # Eos # Baso # Seg Neutrophils % Seg Neuts % (Manual) Lymphocytes % (Manual) Eosinophils % (Manual) Seg Neutrophils # Lymphocytes # (Manual) Eosinophils # (Manual) PT INR D-Dimer POC ABG pH POC ABG pCO2 POC ABG pO2 ABG pO2 ABG HCO3 ABG Base Excess ABG Hemoglobin Oxyhemoglobin Sodium Potassium Chloride Carbon Dioxide BUN Creatinine Glucose POC Glucose 169 H 119 H 173 H Calcium Phosphorus Magnesium Iron TIBC Transferrin Ferritin ALT Alkaline Phosphatase Total Creatine Kinase CK-MB (CK-2) Rel Index Troponin T Albumin LDL Cholesterol Direct PTH Intact Salicylates Acetaminophen Crossmatch 05/16/19 05/16/19 05/16/19 00:18 06:17 12:47 WBC RBC Hgb Hct MCV MCH MCHC RDW Plt Count Lymph % (Auto) Saunders % (Auto) Eos % (Auto) Baso % (Auto) Lymph # Saunders # Eos # Baso # Seg Neutrophils % Seg Neuts % (Manual) Lymphocytes % (Manual) Eosinophils % (Manual) Seg Neutrophils # Lymphocytes # (Manual) Eosinophils # (Manual) PT INR D-Dimer POC ABG pH POC ABG pCO2 POC ABG pO2 ABG pO2 ABG HCO3 ABG Base Excess ABG Hemoglobin Oxyhemoglobin Sodium Potassium Chloride Carbon Dioxide BUN Creatinine Glucose POC Glucose 201 H 149 H 207 H Calcium Phosphorus Magnesium Iron TIBC Transferrin Ferritin ALT Alkaline Phosphatase Total Creatine Kinase CK-MB (CK-2) Rel Index Troponin T Albumin LDL Cholesterol Direct PTH Intact Salicylates Acetaminophen Crossmatch 05/16/19 05/17/19 05/17/19 17:48 00:01 06:26 WBC RBC Hgb Hct MCV MCH MCHC RDW Plt Count Lymph % (Auto) Saunders % (Auto) Eos % (Auto) Baso % (Auto) Lymph # Saunders # Eos # Baso # Seg Neutrophils % Seg Neuts % (Manual) Lymphocytes % (Manual) Eosinophils % (Manual) Seg Neutrophils # Lymphocytes # (Manual) Eosinophils # (Manual) PT INR D-Dimer POC ABG pH POC ABG pCO2 POC ABG pO2 ABG pO2 ABG HCO3 ABG Base Excess ABG Hemoglobin Oxyhemoglobin Sodium Potassium Chloride Carbon Dioxide BUN Creatinine Glucose POC Glucose 183 H 176 H 177 H Calcium Phosphorus Magnesium Iron TIBC Transferrin Ferritin ALT Alkaline Phosphatase Total Creatine Kinase CK-MB (CK-2) Rel Index Troponin T Albumin LDL Cholesterol Direct PTH Intact Salicylates Acetaminophen Crossmatch 05/17/19 05/17/19 05/18/19 12:19 17:45 00:30 WBC RBC Hgb Hct MCV MCH MCHC RDW Plt Count Lymph % (Auto) Saunders % (Auto) Eos % (Auto) Baso % (Auto) Lymph # Saunders # Eos # Baso # Seg Neutrophils % Seg Neuts % (Manual) Lymphocytes % (Manual) Eosinophils % (Manual) Seg Neutrophils # Lymphocytes # (Manual) Eosinophils # (Manual) PT INR D-Dimer POC ABG pH POC ABG pCO2 POC ABG pO2 ABG pO2 ABG HCO3 ABG Base Excess ABG Hemoglobin Oxyhemoglobin Sodium Potassium Chloride Carbon Dioxide BUN Creatinine Glucose POC Glucose 174 H 171 H 181 H Calcium Phosphorus Magnesium Iron TIBC Transferrin Ferritin ALT Alkaline Phosphatase Total Creatine Kinase CK-MB (CK-2) Rel Index Troponin T Albumin LDL Cholesterol Direct PTH Intact Salicylates Acetaminophen Crossmatch 05/18/19 05/18/19 05/19/19 06:18 16:53 00:19 WBC RBC Hgb Hct MCV MCH MCHC RDW Plt Count Lymph % (Auto) Saunders % (Auto) Eos % (Auto) Baso % (Auto) Lymph # Saunders # Eos # Baso # Seg Neutrophils % Seg Neuts % (Manual) Lymphocytes % (Manual) Eosinophils % (Manual) Seg Neutrophils # Lymphocytes # (Manual) Eosinophils # (Manual) PT INR D-Dimer POC ABG pH POC ABG pCO2 POC ABG pO2 ABG pO2 ABG HCO3 ABG Base Excess ABG Hemoglobin Oxyhemoglobin Sodium Potassium Chloride Carbon Dioxide BUN Creatinine Glucose POC Glucose 165 H 166 H 207 H Calcium Phosphorus Magnesium Iron TIBC Transferrin Ferritin ALT Alkaline Phosphatase Total Creatine Kinase CK-MB (CK-2) Rel Index Troponin T Albumin LDL Cholesterol Direct PTH Intact Salicylates Acetaminophen Crossmatch 05/19/19 05/19/19 05/19/19 01:00 01:00 05:15 WBC 11.6 H RBC 3.12 L Hgb 7.9 L Hct 25.9 L MCV 83 L MCH 25 L MCHC 31 L RDW 21.1 H Plt Count Lymph % (Auto) Saunders % (Auto) Eos % (Auto) Baso % (Auto) Lymph # Saunders # Eos # Baso # Seg Neutrophils % Seg Neuts % (Manual) Lymphocytes % (Manual) Eosinophils % (Manual) Seg Neutrophils # Lymphocytes # (Manual) Eosinophils # (Manual) PT INR D-Dimer POC ABG pH POC ABG pCO2 POC ABG pO2 ABG pO2 ABG HCO3 ABG Base Excess ABG Hemoglobin Oxyhemoglobin Sodium 135 L Potassium Chloride 93.6 L Carbon Dioxide BUN 64 H Creatinine 2.8 H Glucose 194 H POC Glucose 176 H Calcium Phosphorus Magnesium Iron TIBC Transferrin Ferritin ALT Alkaline Phosphatase Total Creatine Kinase CK-MB (CK-2) Rel Index Troponin T Albumin LDL Cholesterol Direct PTH Intact Salicylates Acetaminophen Crossmatch 05/19/19 05/19/19 05/20/19 11:21 18:48 00:01 WBC RBC Hgb Hct MCV MCH MCHC RDW Plt Count Lymph % (Auto) Saunders % (Auto) Eos % (Auto) Baso % (Auto) Lymph # Saunders # Eos # Baso # Seg Neutrophils % Seg Neuts % (Manual) Lymphocytes % (Manual) Eosinophils % (Manual) Seg Neutrophils # Lymphocytes # (Manual) Eosinophils # (Manual) PT INR D-Dimer POC ABG pH POC ABG pCO2 POC ABG pO2 ABG pO2 ABG HCO3 ABG Base Excess ABG Hemoglobin Oxyhemoglobin Sodium Potassium Chloride Carbon Dioxide BUN Creatinine Glucose POC Glucose 162 H 140 H 200 H Calcium Phosphorus Magnesium Iron TIBC Transferrin Ferritin ALT Alkaline Phosphatase Total Creatine Kinase CK-MB (CK-2) Rel Index Troponin T Albumin LDL Cholesterol Direct PTH Intact Salicylates Acetaminophen Crossmatch 05/20/19 05/20/19 05/21/19 05:58 17:50 00:43 WBC RBC Hgb Hct MCV MCH MCHC RDW Plt Count Lymph % (Auto) Saunders % (Auto) Eos % (Auto) Baso % (Auto) Lymph # Saunders # Eos # Baso # Seg Neutrophils % Seg Neuts % (Manual) Lymphocytes % (Manual) Eosinophils % (Manual) Seg Neutrophils # Lymphocytes # (Manual) Eosinophils # (Manual) PT INR D-Dimer POC ABG pH POC ABG pCO2 POC ABG pO2 ABG pO2 ABG HCO3 ABG Base Excess ABG Hemoglobin Oxyhemoglobin Sodium Potassium Chloride Carbon Dioxide BUN Creatinine Glucose POC Glucose 132 H 154 H 165 H Calcium Phosphorus Magnesium Iron TIBC Transferrin Ferritin ALT Alkaline Phosphatase Total Creatine Kinase CK-MB (CK-2) Rel Index Troponin T Albumin LDL Cholesterol Direct PTH Intact Salicylates Acetaminophen Crossmatch 05/21/19 05/21/19 05/21/19 06:06 11:15 17:04 WBC RBC Hgb Hct MCV MCH MCHC RDW Plt Count Lymph % (Auto) Saunders % (Auto) Eos % (Auto) Baso % (Auto) Lymph # Saunders # Eos # Baso # Seg Neutrophils % Seg Neuts % (Manual) Lymphocytes % (Manual) Eosinophils % (Manual) Seg Neutrophils # Lymphocytes # (Manual) Eosinophils # (Manual) PT INR D-Dimer POC ABG pH POC ABG pCO2 POC ABG pO2 ABG pO2 ABG HCO3 ABG Base Excess ABG Hemoglobin Oxyhemoglobin Sodium Potassium Chloride Carbon Dioxide BUN Creatinine Glucose POC Glucose 178 H 218 H 135 H Calcium Phosphorus Magnesium Iron TIBC Transferrin Ferritin ALT Alkaline Phosphatase Total Creatine Kinase CK-MB (CK-2) Rel Index Troponin T Albumin LDL Cholesterol Direct PTH Intact Salicylates Acetaminophen Crossmatch 05/21/19 05/22/19 05/22/19 23:25 06:09 18:32 WBC RBC Hgb Hct MCV MCH MCHC RDW Plt Count Lymph % (Auto) Saunders % (Auto) Eos % (Auto) Baso % (Auto) Lymph # Saunders # Eos # Baso # Seg Neutrophils % Seg Neuts % (Manual) Lymphocytes % (Manual) Eosinophils % (Manual) Seg Neutrophils # Lymphocytes # (Manual) Eosinophils # (Manual) PT INR D-Dimer POC ABG pH POC ABG pCO2 POC ABG pO2 ABG pO2 ABG HCO3 ABG Base Excess ABG Hemoglobin Oxyhemoglobin Sodium Potassium Chloride Carbon Dioxide BUN Creatinine Glucose POC Glucose 221 H 140 H 216 H Calcium Phosphorus Magnesium Iron TIBC Transferrin Ferritin ALT Alkaline Phosphatase Total Creatine Kinase CK-MB (CK-2) Rel Index Troponin T Albumin LDL Cholesterol Direct PTH Intact Salicylates Acetaminophen Crossmatch 05/22/19 05/23/19 05/23/19 23:56 05:23 12:46 WBC RBC Hgb Hct MCV MCH MCHC RDW Plt Count Lymph % (Auto) Saunders % (Auto) Eos % (Auto) Baso % (Auto) Lymph # Saunders # Eos # Baso # Seg Neutrophils % Seg Neuts % (Manual) Lymphocytes % (Manual) Eosinophils % (Manual) Seg Neutrophils # Lymphocytes # (Manual) Eosinophils # (Manual) PT INR D-Dimer POC ABG pH POC ABG pCO2 POC ABG pO2 ABG pO2 ABG HCO3 ABG Base Excess ABG Hemoglobin Oxyhemoglobin Sodium Potassium Chloride Carbon Dioxide BUN Creatinine Glucose POC Glucose 177 H 188 H 165 H Calcium Phosphorus Magnesium Iron TIBC Transferrin Ferritin ALT Alkaline Phosphatase Total Creatine Kinase CK-MB (CK-2) Rel Index Troponin T Albumin LDL Cholesterol Direct PTH Intact Salicylates Acetaminophen Crossmatch 05/23/19 05/24/19 05/24/19 17:36 00:06 06:51 WBC RBC Hgb Hct MCV MCH MCHC RDW Plt Count Lymph % (Auto) Saunders % (Auto) Eos % (Auto) Baso % (Auto) Lymph # Saunders # Eos # Baso # Seg Neutrophils % Seg Neuts % (Manual) Lymphocytes % (Manual) Eosinophils % (Manual) Seg Neutrophils # Lymphocytes # (Manual) Eosinophils # (Manual) PT INR D-Dimer POC ABG pH POC ABG pCO2 POC ABG pO2 ABG pO2 ABG HCO3 ABG Base Excess ABG Hemoglobin Oxyhemoglobin Sodium Potassium Chloride Carbon Dioxide BUN Creatinine Glucose POC Glucose 204 H 155 H 169 H Calcium Phosphorus Magnesium Iron TIBC Transferrin Ferritin ALT Alkaline Phosphatase Total Creatine Kinase CK-MB (CK-2) Rel Index Troponin T Albumin LDL Cholesterol Direct PTH Intact Salicylates Acetaminophen Crossmatch 05/24/19 05/24/19 05/25/19 11:33 17:47 00:03 WBC RBC Hgb Hct MCV MCH MCHC RDW Plt Count Lymph % (Auto) Saunders % (Auto) Eos % (Auto) Baso % (Auto) Lymph # Saunders # Eos # Baso # Seg Neutrophils % Seg Neuts % (Manual) Lymphocytes % (Manual) Eosinophils % (Manual) Seg Neutrophils # Lymphocytes # (Manual) Eosinophils # (Manual) PT INR D-Dimer POC ABG pH POC ABG pCO2 POC ABG pO2 ABG pO2 ABG HCO3 ABG Base Excess ABG Hemoglobin Oxyhemoglobin Sodium Potassium Chloride Carbon Dioxide BUN Creatinine Glucose POC Glucose 158 H 120 H 142 H Calcium Phosphorus Magnesium Iron TIBC Transferrin Ferritin ALT Alkaline Phosphatase Total Creatine Kinase CK-MB (CK-2) Rel Index Troponin T Albumin LDL Cholesterol Direct PTH Intact Salicylates Acetaminophen Crossmatch 05/25/19 05/25/19 05/25/19 05:34 14:37 17:34 WBC RBC Hgb Hct MCV MCH MCHC RDW Plt Count Lymph % (Auto) Saunders % (Auto) Eos % (Auto) Baso % (Auto) Lymph # Saunders # Eos # Baso # Seg Neutrophils % Seg Neuts % (Manual) Lymphocytes % (Manual) Eosinophils % (Manual) Seg Neutrophils # Lymphocytes # (Manual) Eosinophils # (Manual) PT INR D-Dimer POC ABG pH POC ABG pCO2 POC ABG pO2 ABG pO2 ABG HCO3 ABG Base Excess ABG Hemoglobin Oxyhemoglobin Sodium Potassium Chloride Carbon Dioxide BUN Creatinine Glucose POC Glucose 128 H 199 H 185 H Calcium Phosphorus Magnesium Iron TIBC Transferrin Ferritin ALT Alkaline Phosphatase Total Creatine Kinase CK-MB (CK-2) Rel Index Troponin T Albumin LDL Cholesterol Direct PTH Intact Salicylates Acetaminophen Crossmatch 05/26/19 05/26/19 05/26/19 06:21 11:39 17:47 WBC RBC Hgb Hct MCV MCH MCHC RDW Plt Count Lymph % (Auto) Saunders % (Auto) Eos % (Auto) Baso % (Auto) Lymph # Saunders # Eos # Baso # Seg Neutrophils % Seg Neuts % (Manual) Lymphocytes % (Manual) Eosinophils % (Manual) Seg Neutrophils # Lymphocytes # (Manual) Eosinophils # (Manual) PT INR D-Dimer POC ABG pH POC ABG pCO2 POC ABG pO2 ABG pO2 ABG HCO3 ABG Base Excess ABG Hemoglobin Oxyhemoglobin Sodium Potassium Chloride Carbon Dioxide BUN Creatinine Glucose POC Glucose 110 H 129 H 177 H Calcium Phosphorus Magnesium Iron TIBC Transferrin Ferritin ALT Alkaline Phosphatase Total Creatine Kinase CK-MB (CK-2) Rel Index Troponin T Albumin LDL Cholesterol Direct PTH Intact Salicylates Acetaminophen Crossmatch 05/27/19 05/27/19 05/27/19 00:02 06:40 13:41 WBC RBC Hgb Hct MCV MCH MCHC RDW Plt Count Lymph % (Auto) Saunders % (Auto) Eos % (Auto) Baso % (Auto) Lymph # Saunders # Eos # Baso # Seg Neutrophils % Seg Neuts % (Manual) Lymphocytes % (Manual) Eosinophils % (Manual) Seg Neutrophils # Lymphocytes # (Manual) Eosinophils # (Manual) PT INR D-Dimer POC ABG pH POC ABG pCO2 POC ABG pO2 ABG pO2 ABG HCO3 ABG Base Excess ABG Hemoglobin Oxyhemoglobin Sodium Potassium Chloride Carbon Dioxide BUN Creatinine Glucose POC Glucose 142 H 186 H 208 H Calcium Phosphorus Magnesium Iron TIBC Transferrin Ferritin ALT Alkaline Phosphatase Total Creatine Kinase CK-MB (CK-2) Rel Index Troponin T Albumin LDL Cholesterol Direct PTH Intact Salicylates Acetaminophen Crossmatch 05/27/19 05/27/19 05/28/19 17:03 23:36 06:46 WBC RBC Hgb Hct MCV MCH MCHC RDW Plt Count Lymph % (Auto) Saunders % (Auto) Eos % (Auto) Baso % (Auto) Lymph # Saunders # Eos # Baso # Seg Neutrophils % Seg Neuts % (Manual) Lymphocytes % (Manual) Eosinophils % (Manual) Seg Neutrophils # Lymphocytes # (Manual) Eosinophils # (Manual) PT INR D-Dimer POC ABG pH POC ABG pCO2 POC ABG pO2 ABG pO2 ABG HCO3 ABG Base Excess ABG Hemoglobin Oxyhemoglobin Sodium Potassium Chloride Carbon Dioxide BUN Creatinine Glucose POC Glucose 195 H 169 H 125 H Calcium Phosphorus Magnesium Iron TIBC Transferrin Ferritin ALT Alkaline Phosphatase Total Creatine Kinase CK-MB (CK-2) Rel Index Troponin T Albumin LDL Cholesterol Direct PTH Intact Salicylates Acetaminophen Crossmatch 05/28/19 05/28/1919 10:57 10:57 10:57 WBC 11.4 H RBC 3.05 L Hgb 7.9 L Hct 24.9 L MCV 82 L MCH 26 L MCHC RDW 21.6 H Plt Count Lymph % (Auto) 7.5 L Saunders % (Auto) 7.8 H Eos % (Auto) Baso % (Auto) Lymph # 0.9 L Saunders # 0.9 H Eos # 0.5 H Baso # Seg Neutrophils % 79.5 H Seg Neuts % (Manual) Lymphocytes % (Manual) Eosinophils % (Manual) Seg Neutrophils # 9.1 H Lymphocytes # (Manual) Eosinophils # (Manual) PT INR D-Dimer POC ABG pH POC ABG pCO2 POC ABG pO2 ABG pO2 ABG HCO3 ABG Base Excess ABG Hemoglobin Oxyhemoglobin Sodium Potassium Chloride 94.0 L Carbon Dioxide BUN 53 H Creatinine 2.9 H Glucose 147 H POC Glucose Calcium Phosphorus Magnesium Iron TIBC Transferrin Ferritin ALT Alkaline Phosphatase 170 H Total Creatine Kinase CK-MB (CK-2) Rel Index Troponin T Albumin 2.2 L LDL Cholesterol Direct PTH Intact 199.5 H Salicylates Acetaminophen Crossmatch 05/28/19 05/28/19 05/28/19 12:02 16:37 23:40 WBC RBC Hgb Hct MCV MCH MCHC RDW Plt Count Lymph % (Auto) Saunders % (Auto) Eos % (Auto) Baso % (Auto) Lymph # Saunders # Eos # Baso # Seg Neutrophils % Seg Neuts % (Manual) Lymphocytes % (Manual) Eosinophils % (Manual) Seg Neutrophils # Lymphocytes # (Manual) Eosinophils # (Manual) PT INR D-Dimer POC ABG pH POC ABG pCO2 POC ABG pO2 ABG pO2 ABG HCO3 ABG Base Excess ABG Hemoglobin Oxyhemoglobin Sodium Potassium Chloride Carbon Dioxide BUN Creatinine Glucose POC Glucose 181 H 217 H 152 H Calcium Phosphorus Magnesium Iron TIBC Transferrin Ferritin ALT Alkaline Phosphatase Total Creatine Kinase CK-MB (CK-2) Rel Index Troponin T Albumin LDL Cholesterol Direct PTH Intact Salicylates Acetaminophen Crossmatch 05/29/19 05/29/19 05/29/19 06:38 12:49 12:49 WBC RBC Hgb Hct MCV MCH MCHC RDW Plt Count Lymph % (Auto) Saunders % (Auto) Eos % (Auto) Baso % (Auto) Lymph # Saunders # Eos # Baso # Seg Neutrophils % Seg Neuts % (Manual) Lymphocytes % (Manual) Eosinophils % (Manual) Seg Neutrophils # Lymphocytes # (Manual) Eosinophils # (Manual) PT INR D-Dimer POC ABG pH POC ABG pCO2 POC ABG pO2 ABG pO2 ABG HCO3 ABG Base Excess ABG Hemoglobin Oxyhemoglobin Sodium Potassium Chloride Carbon Dioxide BUN Creatinine Glucose POC Glucose 194 H Calcium Phosphorus Magnesium Iron 21 L TIBC 78 L Transferrin 61 L Ferritin 4009.0 H ALT Alkaline Phosphatase Total Creatine Kinase CK-MB (CK-2) Rel Index Troponin T Albumin LDL Cholesterol Direct PTH Intact Salicylates Acetaminophen Crossmatch 05/29/19 05/30/19 05/30/19 15:01 00:12 05:57 WBC RBC Hgb Hct MCV MCH MCHC RDW Plt Count Lymph % (Auto) Saunders % (Auto) Eos % (Auto) Baso % (Auto) Lymph # Saunders # Eos # Baso # Seg Neutrophils % Seg Neuts % (Manual) Lymphocytes % (Manual) Eosinophils % (Manual) Seg Neutrophils # Lymphocytes # (Manual) Eosinophils # (Manual) PT INR D-Dimer POC ABG pH POC ABG pCO2 POC ABG pO2 ABG pO2 ABG HCO3 ABG Base Excess ABG Hemoglobin Oxyhemoglobin Sodium Potassium Chloride Carbon Dioxide BUN Creatinine Glucose POC Glucose 172 H 184 H 113 H Calcium Phosphorus Magnesium Iron TIBC Transferrin Ferritin ALT Alkaline Phosphatase Total Creatine Kinase CK-MB (CK-2) Rel Index Troponin T Albumin LDL Cholesterol Direct PTH Intact Salicylates Acetaminophen Crossmatch 05/30/19 05/30/19 05/30/19 11:56 17:00 23:50 WBC RBC Hgb Hct MCV MCH MCHC RDW Plt Count Lymph % (Auto) Saunders % (Auto) Eos % (Auto) Baso % (Auto) Lymph # Saunders # Eos # Baso # Seg Neutrophils % Seg Neuts % (Manual) Lymphocytes % (Manual) Eosinophils % (Manual) Seg Neutrophils # Lymphocytes # (Manual) Eosinophils # (Manual) PT INR D-Dimer POC ABG pH POC ABG pCO2 POC ABG pO2 ABG pO2 ABG HCO3 ABG Base Excess ABG Hemoglobin Oxyhemoglobin Sodium Potassium Chloride Carbon Dioxide BUN Creatinine Glucose POC Glucose 170 H 155 H 114 H Calcium Phosphorus Magnesium Iron TIBC Transferrin Ferritin ALT Alkaline Phosphatase Total Creatine Kinase CK-MB (CK-2) Rel Index Troponin T Albumin LDL Cholesterol Direct PTH Intact Salicylates Acetaminophen Crossmatch 05/31/19 05/31/19 05/31/19 06:48 11:29 16:48 WBC RBC Hgb Hct MCV MCH MCHC RDW Plt Count Lymph % (Auto) Saunders % (Auto) Eos % (Auto) Baso % (Auto) Lymph # Saunders # Eos # Baso # Seg Neutrophils % Seg Neuts % (Manual) Lymphocytes % (Manual) Eosinophils % (Manual) Seg Neutrophils # Lymphocytes # (Manual) Eosinophils # (Manual) PT INR D-Dimer POC ABG pH POC ABG pCO2 POC ABG pO2 ABG pO2 ABG HCO3 ABG Base Excess ABG Hemoglobin Oxyhemoglobin Sodium Potassium Chloride Carbon Dioxide BUN Creatinine Glucose POC Glucose 132 H 167 H 142 H Calcium Phosphorus Magnesium Iron TIBC Transferrin Ferritin ALT Alkaline Phosphatase Total Creatine Kinase CK-MB (CK-2) Rel Index Troponin T Albumin LDL Cholesterol Direct PTH Intact Salicylates Acetaminophen Crossmatch 05/31/19 06/01/19 06/01/19 23:05 06:00 06:45 WBC RBC Hgb Hct MCV MCH MCHC RDW Plt Count Lymph % (Auto) Saunders % (Auto) Eos % (Auto) Baso % (Auto) Lymph # Saunders # Eos # Baso # Seg Neutrophils % Seg Neuts % (Manual) Lymphocytes % (Manual) Eosinophils % (Manual) Seg Neutrophils # Lymphocytes # (Manual) Eosinophils # (Manual) PT INR D-Dimer POC ABG pH POC ABG pCO2 POC ABG pO2 ABG pO2 ABG HCO3 ABG Base Excess ABG Hemoglobin Oxyhemoglobin Sodium Potassium Chloride Carbon Dioxide BUN Creatinine Glucose POC Glucose 133 H 146 H Calcium Phosphorus Magnesium Iron TIBC Transferrin Ferritin ALT Alkaline Phosphatase Total Creatine Kinase CK-MB (CK-2) Rel Index Troponin T Albumin LDL Cholesterol Direct PTH Intact Salicylates Acetaminophen Crossmatch See Detail 06/01/19 06/01/19 Unknown Unknown WBC RBC 2.37 L Hgb 6.1 L Hct 19.1 L* MCV 81 L MCH 26 L MCHC RDW 21.5 H Plt Count Lymph % (Auto) Saunders % (Auto) Eos % (Auto) Baso % (Auto) Lymph # Saunders # Eos # Baso # Seg Neutrophils % Seg Neuts % (Manual) Lymphocytes % (Manual) Eosinophils % (Manual) Seg Neutrophils # Lymphocytes # (Manual) Eosinophils # (Manual) PT INR D-Dimer POC ABG pH POC ABG pCO2 POC ABG pO2 ABG pO2 ABG HCO3 ABG Base Excess ABG Hemoglobin Oxyhemoglobin Sodium 135 L Potassium Chloride 92.4 L Carbon Dioxide BUN 80 H Creatinine 4.4 H D Glucose 121 H POC Glucose Calcium Phosphorus Magnesium Iron TIBC Transferrin Ferritin ALT Alkaline Phosphatase Total Creatine Kinase CK-MB (CK-2) Rel Index Troponin T Albumin LDL Cholesterol Direct PTH Intact Salicylates Acetaminophen Crossmatch
[2019-06-01] MEDS: FAMOTIDINE 20 MG TAB PO SCH (12:19)
[2019-06-01] MEDS: SODIUM HYPOCHLORITE, DAKIN'S 1/2 STRENGTH (0.25%) 473 ML TOPICAL SOLN TP SCH ×2 (12:19→19:13)
[2019-06-01] MEDS: risperiDONE 1 MG TAB PO SCH (12:20)
[2019-06-01] MEDS: SERTRALINE 100 MG TAB PO SCH (12:20)
[2019-06-01 21:15] LABS: Iron 17 ug/dL (49-181); Total Iron Binding Capacity 80 mcg/dL (250-450)
[2019-06-02] MEDS: SODIUM HYPOCHLORITE, DAKIN'S 1/2 STRENGTH (0.25%) 473 ML TOPICAL SOLN TP SCH ×4 (00:09→23:15)
[2019-06-02] MEDS: INSULIN REGULAR, HUMAN 100 UNITS/1 ML SUB-Q SCH ×4 (00:46→18:52)
--- NOTE | 2019-06-02 09:50 | Progress Note ---
Assessment and Plan Assessment: * End stage renal disease (outpatient TTS schedule) * Acute hypoxic respiratory failure s/p trach * s/p KEON pneumonia --Sputum cx: MDR Acinetobacter * Cardiomyopathy - EF 35-40% * Atrial fibrillation * History of CVA * Anemia secondary to ESRD * Secondary hyperparathyroidism * Decubitis ulcer Plan * Continue HD [facility] via LUE AVG * ID following - recommendations appreciated * Nutrition per primary team * Dose medications for renal function * Epogen 20k TIW; would repeat hemoglobin today as needed PRBC 1u yesterday with HD with hemoglobin 6.1 * Overall prognosis remains poor; family declines hospice, continue HD We will continue to follow patient for renal related issues. Thank you for this consult. Subjective Date of service: 06/02/19 Principal diagnosis: Respiratory failure, acute on chronic systolic HF, ESRD Interval history: No new issues to note. Has been tolerating HD sessions per HD nurses with minimal fluid removal. Patient remains at baseline poor mental status Objective - Exam Narrative Exam: General appearance: chronically ill, intubated, frail EENT: normocephalic Neck: trach collar in place Respiratory: coarse mechanical breath sounds bilaterally Cardiology: regular, S1S2, no edema Gastrointestinal: PEG and colostomy noted Integumentary: warm and dry Psychiatric: unable to assess - Vital Signs Vital signs: Vital Signs - 12hr 06/01/19 06/01/19 06/02/19 22:00 22:53 06:03 Temperature 98.3 F 98.8 F Pulse Rate 113 H 114 H Respiratory 20 18 18 Rate Blood Pressure 125/63 122/67 O2 Sat by Pulse 96 95 Oximetry - Lab 06/01/19 Unknown 06/01/19 Unknown Most recent lab results ABG pH 7.424 pH Units (7.350-7.450) 03/19/19 04:23 ABG pCO2 48.0 mm Hg 03/19/19 04:23 ABG pO2 78.3 mm Hg (80.0-90.0) L 03/19/19 04:23 ABG HCO3 30.7 mmol/L (20.0-26.0) H 03/19/19 04:23 ABG O2 Saturation 97.0 % (95.0-99.0) 03/19/19 04:23 Calcium 9.6 mg/dL (8.4-10.2) 06/01/19 Unknown Phosphorus 2.60 mg/dL (2.5-4.5) 05/28/19 10:57 Magnesium 2.70 mg/dL (1.7-2.3) H 03/30/19 10:13 Medications & Allergies - Medications Allergies/Adverse Reactions: Allergies haloperidol [From Haldol] Adverse Reaction (Verified 03/13/18 12:10) Unknown haloperidol lactate [From Haldol] Adverse Reaction (Verified 03/13/18 12:10) Unknown Home Medications: Home Medications Medication Instructions Recorded Confirmed Last Taken Type risperiDONE [RisperDAL] 1 mg PO QAM 03/13/18 02/21/19 Unknown History Sertraline [Zoloft] 100 mg PO QDAY 08/26/18 02/21/19 Unknown History Polyethylene Glycol 3350 [Miralax 17 gm PO QDAY #30 packet 11/05/18 02/21/19 Unknown Rx 3350] Aspirin EC [Halfprin EC] 81 mg PO DAILY #30 11/19/18 02/21/19 Unknown Rx Docusate Sodium [Colace CAP] 100 mg PO BID #60 11/19/18 02/21/19 Unknown Rx Folic Acid [Folvite] 1 mg PO DAILY #30 tab 11/19/18 02/21/19 Unknown Rx Famotidine [Pepcid] 20 mg PO DAILY tablet 12/08/18 02/21/19 Unknown Rx Gabapentin 100 mg PO QHS capsule 12/08/18 02/21/19 Unknown Rx Metoprolol [Lopressor TAB] 50 mg PO BID 30 Days tablet 12/08/18 02/21/19 Unknown Rx Sevelamer Carbonate [Renvela] 800 mg PO TIDWM tablet 12/08/18 02/21/19 Unknown Rx hydrALAZINE [Apresoline TAB] 100 mg PO Q8HR #120 tablet 12/08/18 02/21/19 Unknown Rx Acetaminophen [Acetaminophen TAB] 650 mg PO Q12H PRN 12/15/18 02/21/19 Unknown History Glucagon,Human Recombinant 1 mg IJ Q15MIN PRN 12/15/18 02/21/19 Unknown History [Glucagon Emergency Kit] Insulin Aspart (Nf) [NovoLOG 100 See Protocol SQ QWEEK 12/15/18 02/21/19 Unknown History UNITS/ML VIAL] Active Medications: Generic Name Dose Route Start Last Admin Trade Name Freq PRN Reason Stop Dose Admin Acetaminophen 650 mg 05/18/19 23:33 06/01/19 02:11 Tylenol PO 650 mg Q6HR PRN Administration PAIN Albuterol/Ipratropium 1 ampul 02/24/19 20:00 06/01/19 19:14 Duoneb *Not For Prn Use* IH 1 ampul TIDRT SANCHEZ Administration Lipase/Protease/Amylase 1 each 04/10/19 15:16 Pancreaze 10,500 Unit FEEDTUBE PRN PRN For Clogged Feeding Tube Epoetin Solitario 20,000 unit 03/24/19 11:17 05/27/19 12:19 Procrit IV 20,000 unit UMA PRN Administration hemodialysis Famotidine 20 mg 02/23/19 10:00 06/01/19 12:19 Pepcid PO Not Given DAILY [facility] Sodium Chloride 100 mls @ 999 mls/hr 05/13/19 12:45 Nacl 0.9% IV UMA PRN Hypotension Insulin Human Regular 0 units 02/26/19 12:00 06/02/19 05:34 Humulin R SUB-Q Not Given Q6HR [facility] Protocol Risperidone 1 mg 02/25/19 13:00 06/01/19 12:20 Risperdal PO Not Given DAILY [facility] Sertraline HCl 100 mg 02/25/19 13:00 06/01/19 12:20 Zoloft PO Not Given DAILY [facility] Simple Syrup 15 ml 04/10/19 15:16 Simple Syrup FEEDTUBE PRN PRN Hypoglycemia Simple Syrup 30 ml 04/10/19 15:16 Simple Syrup FEEDTUBE PRN PRN Hypoglycemia Sodium Bicarbonate 325 mg 04/10/19 15:16 Sodium Bicarbonate FEEDTUBE PRN PRN For Clogged Feeding Tube Sodium Hypochlorite 1 applic 04/01/19 13:00 06/02/19 05:35 Dakin's Half Strength TP 1 applicatio BID SANCHEZ Administration
[2019-06-02] MEDS: IPRATROPIUM/ALBUTEROL SULFATE 3 ML AMPUL.NEB IH SCH ×3 (10:38→19:55)
--- NOTE | 2019-06-02 11:14 | Progress Note ---
Assessment and Plan Assessment and plan: Patient is a 63-year-old -[place] man from [facility] with a plethora of co-morbidities including blindness, CVA, CHF, PPM/ICD, loop recorder since 2012 that is MRI compatible, IDDM type 2, sepsis left foot ulcer, afib, ESRD with complications on HD MWF, hypertension, AOCD and GERD who presented to the ED with hypotensive after intubation in the emergency room. Still intubated, diagnosed with fluid overload, pleural effusion. Patient has had recurrent admission in the hospital for similar reason and was recently discharged from the hospital following treatment of Severe Sepsis due to Necrotizing Unstagable sacral decubitus ulcer with ostemomylitis. He has been admitted since the 02/21/2019. Trach and PEG was done Acute respiratory failure on mechanical ventilator >96 hrs- NOW EXTUBATED AND TRACH CAPPED Trach placed on 03/03/19 Pulm consult appreciated weaning trial VAP BUNDLE ASPIRATION BUNDLE Continue T-piece Finished therapy for Acinetobacter Per pulmonary and I do agree Agree with ID note. Patient is a DNR. He is not to be placed back on the ventilator. Acetinetobacter was seen in lungs last time, most likely could resurface their again. Remainder for those who are not as familiar with this case. Patient has been in the hospital on this particular stay over 3 months. Acute pulmonary edema, fluid overload on CXR repeat xray intermittently Dialysis Necrotizing Unstagable sacral decubitus ulcer with ostemomyelitis Wound care, Dilated CMP Cardiomyiopathy EF 35-40% Continue diuresis PPM/ICD Acute encephalopathy, probably metabolic or toxic Continues on Mechanical ventilator. ESRD on hemodialysis nephrology following Vascular eval. done re: LUE AV graft, see note Bilateral pleural effusions Anticipate improvement with Permanent atrial fibrillation and flutter Not on anticoagulation because of anemia thrombocytopenia Change noted to BB agent to IV. Diabetes mellitus type 2 Fingerstick Q4h NSTEMI type 2 Cardiology following Schizophrenia continue home meds Legally blind supportive care hypertension Monitor BP Hypokalemia resolved Pulmonary hypertension by history Dysphagia s/p PEG tube Severe malnutrition/hypoalbuminemia with FTT: 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, backfiller following PEG placed on 01/02/19 Decubitus ulcer s/p colostomy wound care consult History of sacral osteomyelitis and LE ulcers Completed Antibiotics Place on contact isolation for ESBL Klebsiella pneumonia on wound culture 01/02/19 h/o Peripheral neuropathy: Continue gabapentin Anemia of chronic disease, with a drop in h/h again Transfuse 1 units of PRBC -s/p PRBC, follow cbc- no occult GI bleed noted. -Pt is s/p x1 DDVAP RUL atelectasis, nebs as needed DVT prophylaxis Lovenox DNR poor prognosis Disposition: Awaiting on SNF HD setup I spoke with his nephrew Jennifer Prasanna, Director of our Lab Plan is patient to go back to [facility] with contract in place for him to come here for Hemodialysis See ID note regarding further ABX transfuse 1 unit of PRBC today History Interval history: Patient seen and examined, awake, answers a few questions but lethargic Hospitalist Physical - Physical exam Narrative exam: Narrative exam: Gen: severely disable, nad, awake alert x 1 HEENT: pupils reactive, op dried out, mouth open Neck: supple, trach CVS/Heart: irreg irregular, normal S1S2, pulses present bilaterally Chest/Lungs: diminished bs ymmetrical chest expansion, good air entry bilaterally GI/Abdomen:peg, colostomy present,+bowel sounds, no guarding or rebound /Bladder: no suprapubic tenderness Extermity/Skin: contracted,ulcer left 5th finger, echymosis, multiple pressure ulcers, see wound documentation for detailed exam MSK: no FROM x 4 Neuro: CN 2-12 grossly intact except vision, no new focal deficits Psych: calm - Constitutional Vitals: Temp Pulse Resp BP Pulse Ox 98.8 F 108 H 20 122/67 95 06/02/19 06:03 06/02/19 10:39 06/02/19 10:39 06/02/19 06:03 06/02/19 06:03 General appearance: Present: no acute distress, other (T peace). Absent: well- nourished Results - Labs CBC & Chem 7: 06/02/19 12:00 06/01/19 Unknown Labs: Laboratory Last Values WBC 10.0 K/mm3 (4.5-11.0) 06/01/19 Unknown RBC 2.37 M/mm3 (3.65-5.03) L 06/01/19 Unknown Hgb 6.1 gm/dl (11.8-15.2) L 06/01/19 Unknown Hct 19.1 % (35.5-45.6) L* 06/01/19 Unknown MCV 81 fl (84-94) L 06/01/19 Unknown MCH 26 pg (28-32) L 06/01/19 Unknown MCHC 32 % (32-34) 06/01/19 Unknown RDW 21.5 % (13.2-15.2) H 06/01/19 Unknown Plt Count 392 K/mm3 (140-440) 06/01/19 Unknown Lymph % (Auto) 7.5 % (13.4-35.0) L 05/28/19 10:57 [place] % (Auto) 7.8 % (0.0-7.3) H 05/28/19 10:57 Eos % (Auto) 4.2 % (0.0-4.3) 05/28/19 10:57 Baso % (Auto) 1.0 % (0.0-1.8) 05/28/19 10:57 Lymph # 0.9 K/mm3 (1.2-5.4) L 05/28/19 10:57 [place] # 0.9 K/mm3 (0.0-0.8) H 05/28/19 10:57 Eos # 0.5 K/mm3 (0.0-0.4) H 05/28/19 10:57 Baso # 0.1 K/mm3 (0.0-0.1) 05/28/19 10:57 Add Manual Diff Complete 03/21/19 06:30 Total Counted 100 03/21/19 06:30 Seg Neutrophils % 79.5 % (40.0-70.0) H 05/28/19 10:57 Seg Neuts % (Manual) 81.0 % (40.0-70.0) H 03/21/19 06:30 Band Neutrophils % 0 % 03/21/19 06:30 Lymphocytes % (Manual) 8.0 % (13.4-35.0) L 03/21/19 06:30 Reactive Lymphs % (Man) 0 % 03/21/19 06:30 Monocytes % (Manual) 1.0 % (0.0-7.3) 03/21/19 06:30 Eosinophils % (Manual) 8.0 % (0.0-4.3) H 03/21/19 06:30 Basophils % (Manual) 1.0 % (0.0-1.8) 03/21/19 06:30 Metamyelocytes % 1.0 % 03/21/19 06:30 Myelocytes % 0 % 03/21/19 06:30 Promyelocytes % 0 % 03/21/19 06:30 Blast Cells % 0 % 03/21/19 06:30 Nucleated RBC % Not Reportable 03/21/19 06:30 Seg Neutrophils # 9.1 K/mm3 (1.8-7.7) H 05/28/19 10:57 Seg Neutrophils # Man 6.7 K/mm3 (1.8-7.7) 03/21/19 06:30 Band Neutrophils # 0.0 K/mm3 03/21/19 06:30 Lymphocytes # (Manual) 0.7 K/mm3 (1.2-5.4) L 03/21/19 06:30 Abs React Lymphs (Man) 0.0 K/mm3 03/21/19 06:30 Monocytes # (Manual) 0.1 K/mm3 (0.0-0.8) 03/21/19 06:30 Eosinophils # (Manual) 0.7 K/mm3 (0.0-0.4) H 03/21/19 06:30 Basophils # (Manual) 0.1 K/mm3 (0.0-0.1) 03/21/19 06:30 Metamyelocytes # 0.1 K/mm3 03/21/19 06:30 Myelocytes # 0.0 K/mm3 03/21/19 06:30 Promyelocytes # 0.0 K/mm3 03/21/19 06:30 Blast Cells # 0.0 K/mm3 03/21/19 06:30 WBC Morphology Not Reportable 03/21/19 06:30 Hypersegmented Neuts Not Reportable 03/21/19 06:30 Hyposegmented Neuts Not Reportable 03/21/19 06:30 Hypogranular Neuts Not Reportable 03/21/19 06:30 Smudge Cells Not Reportable 03/21/19 06:30 Toxic Granulation Not Reportable 03/21/19 06:30 Toxic Vacuolation Not Reportable 03/21/19 06:30 Dohle Bodies Not Reportable 03/21/19 06:30 Pelger-Huet Anomaly Not Reportable 03/21/19 06:30 Tramaine Rods Not Reportable 03/21/19 06:30 Platelet Estimate Consistent w auto 03/21/19 06:30 Clumped Platelets Not Reportable 03/21/19 06:30 Plt Clumps, EDTA Not Reportable 03/21/19 06:30 Large Platelets Not Reportable 03/21/19 06:30 Giant Platelets Not Reportable 03/21/19 06:30 Platelet Satelliting Not Reportable 03/21/19 06:30 Plt Morphology Comment Not Reportable 03/21/19 06:30 RBC Morphology Not Reportable 03/21/19 06:30 Dimorphic RBCs Not Reportable 03/21/19 06:30 Polychromasia Not Reportable 03/21/19 06:30 Hypochromasia Few 03/21/19 06:30 Poikilocytosis Few 03/21/19 06:30 Anisocytosis Few 03/21/19 06:30 Microcytosis Not Reportable 03/21/19 06:30 Macrocytosis Not Reportable 03/21/19 06:30 Spherocytes Not Reportable 03/21/19 06:30 Pappenheimer Bodies Not Reportable 03/21/19 06:30 Sickle Cells Not Reportable 03/21/19 06:30 Target Cells 1+ 03/21/19 06:30 Tear Drop Cells Not Reportable 03/21/19 06:30 Ovalocytes Few 03/21/19 06:30 Helmet Cells Not Reportable 03/21/19 06:30 Zhou-[place] Bodies Not Reportable 03/21/19 06:30 [place] Rings Not Reportable 03/21/19 06:30 Hebert Cells Not Reportable 03/21/19 06:30 Bite Cells Not Reportable 03/21/19 06:30 Crenated Cell Not Reportable 03/21/19 06:30 Elliptocytes Not Reportable 03/21/19 06:30 Acanthocytes (Spur) Not Reportable 03/21/19 06:30 Rouleaux Not Reportable 03/21/19 06:30 Hemoglobin C Crystals Not Reportable 03/21/19 06:30 Schistocytes Not Reportable 03/21/19 06:30 Malaria parasites Not Reportable 03/21/19 06:30 Jose Juan Bodies Not Reportable 03/21/19 06:30 Hem Pathologist Commnt No 03/21/19 06:30 PT 16.3 Sec. (12.2-14.9) H 03/01/19 09:39 INR 1.35 (0.87-1.13) H 03/01/19 09:39 APTT 33.7 Sec. (24.2-36.6) 02/21/19 18:30 D-Dimer 2987.82 ng/mlDDU (0-234) H 02/22/19 05:54 POC ABG pH 7.510 (7.35-7.45) H 03/18/19 06:38 ABG pH 7.424 pH Units (7.350-7.450) 03/19/19 04:23 POC ABG pCO2 38.9 (35-45) 03/18/19 06:38 ABG pCO2 48.0 mm Hg 03/19/19 04:23 POC ABG pO2 164 (80-105) H 03/18/19 06:38 ABG pO2 78.3 mm Hg (80.0-90.0) L 03/19/19 04:23 POC ABG HCO3 31.0 (22-26 mml/L) 03/18/19 06:38 ABG HCO3 30.7 mmol/L (20.0-26.0) H 03/19/19 04:23 POC ABG Total CO2 32 (23-27mmol/L) 03/18/19 06:38 POC ABG O2 Sat 100 03/18/19 06:38 ABG O2 Saturation 97.0 % (95.0-99.0) 03/19/19 04:23 ABG O2 Content 7.9 (0.0-44) 03/19/19 04:23 POC ABG Base Excess 8 ((-2) - (+3)mmol/L) 03/18/19 06:38 ABG Base Excess 5.8 mmol/L (-2.0-3.0) H 03/19/19 04:23 ABG Hemoglobin 5.8 gm/dl (14.0-18.0) L 03/19/19 04:23 ABG Carboxyhemoglobin 2.0 % (0.0-5.0) 03/19/19 04:23 ABG Methemoglobin 0.4 % (0.0-1.5) 03/19/19 04:23 Oxyhemoglobin 94.6 % (95.0-99.0) L 03/19/19 04:23 FiO2 35 % 03/19/19 04:23 Sodium 135 mmol/L (137-145) L 06/01/19 Unknown Potassium 3.9 mmol/L (3.6-5.0) 06/01/19 Unknown Chloride 92.4 mmol/L (98-107) L 06/01/19 Unknown Carbon Dioxide 28 mmol/L (22-30) 06/01/19 Unknown Anion Gap 19 mmol/L 06/01/19 Unknown BUN 80 mg/dL (9-20) H 06/01/19 Unknown Creatinine 4.4 mg/dL (0.8-1.5) H D 06/01/19 Unknown Estimated GFR 16 ml/min 06/01/19 Unknown BUN/Creatinine Ratio 18 % 06/01/19 Unknown Glucose 121 mg/dL (75-100) H 06/01/19 Unknown POC Glucose 108 (70-105) H 06/02/19 05:40 Lactic Acid 1.00 mmol/L (0.7-2.0) 02/21/19 20:58 Calcium 9.6 mg/dL (8.4-10.2) 06/01/19 Unknown Phosphorus 2.60 mg/dL (2.5-4.5) 05/28/19 10:57 Magnesium 2.70 mg/dL (1.7-2.3) H 03/30/19 10:13 Iron 17 ug/dL (49-181) L 06/01/19 20:00 TIBC 80 mcg/dL (250-450) L 06/01/19 20:00 % Saturation 26.92 % 05/29/19 12:49 Transferrin 61 mg/dl (180-329) L 05/29/19 12:49 Ferritin 3849.0 ng/mL (13.0-400.0) H 06/01/19 20:00 Total Bilirubin 0.30 mg/dL (0.1-1.2) 05/28/19 10:57 AST 25 units/L (5-40) 05/28/19 10:57 ALT 25 units/L (7-56) 05/28/19 10:57 Alkaline Phosphatase 170 units/L (35-129) H 05/28/19 10:57 Ammonia 28.0 umol/L (25-60) 02/21/19 20:04 Total Creatine Kinase 64 units/L (55-170) 02/22/19 03:42 CK-MB (CK-2) 3.7 ng/mL (0.0-4.0) 02/22/19 03:42 CK-MB (CK-2) Rel Index 5.7 (0-4) H 02/22/19 03:42 Troponin T 0.193 ng/mL (0.00-0.029) H* 02/22/19 03:42 Total Protein 7.5 g/dL (6.3-8.2) 05/28/19 10:57 Albumin 2.2 g/dL (3.9-5) L 05/28/19 10:57 Albumin/Globulin Ratio 0.4 % 05/28/19 10:57 Triglycerides 51 mg/dL (2-149) 02/21/19 18:30 Cholesterol 82 mg/dL (50-199) 02/21/19 18:30 LDL Cholesterol Direct 36 mg/dL (50-130) L 02/21/19 18:30 HDL Cholesterol 40 mg/dL (40-59) 02/21/19 18:30 Cholesterol/HDL Ratio 2.05 % 02/21/19 18:30 TSH 2.760 mlU/mL (0.270-4.200) 02/21/19 20:04 PTH Intact 199.5 pg/mL (15-65) H 05/28/19 10:57 Salicylates < 0.3 mg/dL (2.8-20.0) L 02/21/19 20:04 Acetaminophen < 5.0 ug/mL (10.0-30.0) L 02/21/19 20:04 Hepatitis A IgM Ab Non-reactive (NonReactive) 05/28/19 16:57 Hep Bs Antigen Non-reactive (Negative) 05/28/19 16:57 Hep B Core IgM Ab Non-reactive (NonReactive) 05/28/19 16:57 Hepatitis C Antibody Non-reactive (NonReactive) 05/28/19 16:57 Blood Type O POSITIVE 06/01/19 06:45 Antibody Screen Negative 06/01/19 06:45 Crossmatch See Detail 06/01/19 06:45 Active Medications - Current Medications Current Medications: Generic Name Dose Route Start Last Admin Trade Name Freq PRN Reason Stop Dose Admin Acetaminophen 650 mg 05/18/19 23:33 06/01/19 02:11 Tylenol PO 650 mg Q6HR PRN Administration PAIN Albuterol/Ipratropium 1 ampul 02/24/19 20:00 06/02/19 10:38 Duoneb *Not For Prn Use* IH 1 ampul TIDRT SANCHEZ Administration Lipase/Protease/Amylase 1 each 04/10/19 15:[address] 10,500 Unit FEEDTUBE PRN PRN For Clogged Feeding Tube Epoetin Solitario 20,000 unit 03/24/19 11:17 05/27/19 12:19 Procrit IV 20,000 unit UMA PRN Administration hemodialysis Famotidine 20 mg 02/23/19 10:00 06/01/19 12:19 Pepcid PO Not Given DAILY [facility] Sodium Chloride 100 mls @ 999 mls/hr 05/13/19 12:45 Nacl 0.9% IV UMA PRN Hypotension Insulin Human Regular 0 units 02/26/19 12:00 06/02/19 05:34 Humulin R SUB-Q Not Given Q6HR [facility] Protocol Risperidone 1 mg 02/25/19 13:00 06/01/19 12:20 Risperdal PO Not Given DAILY [facility] Sertraline HCl 100 mg 02/25/19 13:00 06/01/19 12:20 Zoloft PO Not Given DAILY [facility] Simple Syrup 15 ml 04/10/19 15:16 Simple Syrup FEEDTUBE PRN PRN Hypoglycemia Simple Syrup 30 ml 04/10/19 15:16 Simple Syrup FEEDTUBE PRN PRN Hypoglycemia Sodium Bicarbonate 325 mg 04/10/19 15:16 Sodium Bicarbonate FEEDTUBE PRN PRN For Clogged Feeding Tube Sodium Hypochlorite 1 applic 04/01/19 13:00 06/02/19 05:35 Dakin's Half Strength TP 1 applicatio BID [facility] Administration Nutrition/Malnutrition Assess - Dietary Evaluation Nutrition/Malnutrition Findings: Nutrition Notes Start: 02/22/19 12:51 Freq: Status: Active Protocol: Document 05/28/19 09:48 CT (Rec: 05/28/19 10:01 CT [id number]) Co-Sign 05/28/19 09:48 KH Nutrition Notes Initial or Follow up Reassessment Current Diagnosis CKD (stage V CKD),Diabetes, Hypertension,Heart Failure Other Pertinent Diagnosis Sacral PU, ESRD on HD (T/Thurs /Sat), Schizophrenia,Blind in L eye,S/P trach Current Diet Nepro at 50 ml/hr w/Abhilash BID Labs/Tests POC Glu 125 Pertinent Medications Humulin Height 5 ft 10 in Weight 68 kg [place] Body Weight (kg) 75.45 BMI 21.4 Weight change and time frame Wt loss noted. Likely d/t fluid change. Subjective/Other Information Observed Nepro infusing at goal rate. Per RN pt has been recieving Abhilash BID and has not recieved it today. Pt has not had any GI complications. Percent of energy/protein needs met: 100%/100% Burn Absent Trauma Absent Minimum of two criteria No physical signs of malnutrition #2 Nutrition Diagnosis Increased nutrient needs ( specify in comment below) Diagnosis Progress(for reassessment Continues documentation) #1 Nutrition Diagnosis Inadequate oral intake Diagnosis Progress(for reassessment Continues documentation) Is patient on ventilator? No Is Patient Ambulatory and/or Out of Bed No REE-([facility]-confined to bed) 1776.828 Kcal/Kg value to use for calculation 35 Approximate Energy Requirements Using 2380 kcal/Kg Calculation Used for Recommendations Kcal/kg Additional Notes Pro needs 82-102 g/day (1.2-1. 5 g/kg) Fluid per MD Nutrition Intervention Change Diet Order: Continue TF Nutrition Support: Nepro with Carbsteady 1.8 at 50 ml/hr Flush 200 ml q4hr Kcal 2,160 Protein (gm) 97 Fluid (mL) 872 Add Supplement/Snack (indicate name/kcal Abhilash BID /protein ) Provides kCal: 190 Provides Protein (gm) 5 Goal #1 Continue to meet at least 75% of calorie and protein needs via TF Anticipated Discharge Needs: TF Follow-Up By: 06/02/19 Additional Comments Follow up for TF tolerance, receiving Abhilash
[2019-06-02] MEDS: FAMOTIDINE 20 MG TAB PO SCH (11:51)
[2019-06-02] MEDS: risperiDONE 1 MG TAB PO SCH (11:51)
[2019-06-02] MEDS: SERTRALINE 100 MG TAB PO SCH (11:52)
[2019-06-02 12:41] LABS: Hematocrit 24.1 % (35.5-45.6); Hemoglobin 7.6 gm/dl (11.8-15.2)
[2019-06-03] MEDS: INSULIN REGULAR, HUMAN 100 UNITS/1 ML SUB-Q SCH ×4 (05:54→19:15)
[2019-06-03] MEDS: IPRATROPIUM/ALBUTEROL SULFATE 3 ML AMPUL.NEB IH SCH ×4 (07:46→19:43)
[2019-06-03] MEDS: SERTRALINE 100 MG TAB PO SCH (09:48)
[2019-06-03] MEDS: FAMOTIDINE 20 MG TAB PO SCH (09:48)
[2019-06-03] MEDS: risperiDONE 1 MG TAB PO SCH (09:48)
[2019-06-03] MEDS: SODIUM HYPOCHLORITE, DAKIN'S 1/2 STRENGTH (0.25%) 473 ML TOPICAL SOLN TP SCH ×2 (09:49→21:59)
--- NOTE | 2019-06-03 11:39 | Discharge Summary ---
Providers - Providers Date of Admission: 02/21/19 22:19 Attending physician: JAY HYLTON MD 02/21/19 18:24 Consult to Dietitian/Nutrition [CONS] Routine Physician Instructions: Reason For Exam: Reason for Consult: Evaluate nutritional intake Consult to Physician [CONS] Urgent Comment: Dr. Vargas spoke with Dr. Kee @ [id number] Consulting Provider: KAYLEE KEE Physician Instructions: Reason For Exam: resp failure Consult to Physician [CONS] Urgent Comment: Dr. Vargas spoke with Dr. Pierre @ [id number] Consulting Provider: DONG GOMEZ Physician Instructions: Reason For Exam: esrd 02/22/19 11:22 Consult to Physician [CONS] Routine Comment: Spoke to [place] @ at 15:46- [facility] Consulting Provider: POPPY GARZA Physician Instructions: Reason For Exam: evaluate left arm AV graft 02/23/19 05:12 Consult to Wound/ET Nurse [CONS] Routine Reason For Exam: wound eval 02/23/19 12:15 Consult to Dietitian/Nutrition [CONS] Routine Physician Instructions: Reason For Exam: Tube feeding Reason for Consult: Write/Manage Tube Feeding 02/28/19 12:11 Consult to Physician [CONS] Routine Comment: Consulting Provider: DELILAH TEIXEIRA Physician Instructions: Trach and Peg placement, Reason For Exam: Trach and Peg placement 04/04/19 11:00 Consult to Physician [CONS] Routine Comment: Consulting Provider: JAY PERSAUD Physician Instructions: Reason For Exam: fistula , ? stenosed 04/21/19 12:06 Speech Therapy Eval for Passy-Brit Valve [CONS] Routine Reason For Exam: Passy brit valve trials 05/19/19 08:21 Consult to Physician [CONS] Routine Comment: Consulting Provider: TREVOR AGRCIA Physician Instructions: Reason For Exam: fever 05/27/19 12:00 Consult to Wound/ET Nurse [CONS] Routine Reason For Exam: wound eval for wound vac [facility] Reason for admission: respiratory failure Condition: Poor Hospital course: Patient is a 63-year-old -[place] man from [facility] with a plethora of co-morbidities including blindness, CVA, CHF, PPM/ICD, loop recorder since 2012 that is MRI compatible, IDDM type 2, sepsis left foot ulcer, afib, ESRD with complications on HD MWF, hypertension, AOCD and GERD who presented to the ED with hypotensive after intubation in the emergency room. Still intubated, diagnosed with fluid overload, pleural effusion. Patient has had recurrent admission in the hospital for similar reason and was recently discharged from the hospital following treatment of Severe Sepsis due to Necrotizing Unstagable sacral decubitus ulcer with ostemomylitis. He has been admitted since the 02/21/2019. Trach and PEG was done * Patient is progressively lethargic and spaces out during conversation * Had extensive discussion with patients POA and another family member, and informed me that considering all the discussion that the family members have had they will like to move to comfort measures with hospice and discontinue any aggressive life prolonging measures considering the patients quality of life. This has been discussed with the consultants and they are aslo in agreement that continued management is futuil care considering the patients recurrent admissions, recurrent infections and intermittently worsening mental status. * I have also discussed with the patient about quality of life and he wants to be comfortable. * Further evaluation and discussion with the patient shows that he does not have adequate understanding of his entire medical condition, he does not show understanding of the natural course of his current medical condition. Below is a a summary of his admission work up Acute respiratory failure on mechanical ventilator >96 hrs- NOW EXTUBATED AND TR ACH CAPPED Trach placed on 03/03/19 Pulm consult appreciated weaning trial VAP BUNDLE ASPIRATION BUNDLE Continue T-piece Finished therapy for Acinetobacter Per pulmonary and I do agree Agree with ID note. Patient is a DNR. He is not to be placed back on the ventilator. Acetinetobacter was seen in lungs last time, most likely could resurface their again. Remainder for those who are not as familiar with this case. Patient has been in the hospital on this particular stay over 3 months. Acute pulmonary edema, fluid overload on CXR repeat xray intermittently Dialysis Necrotizing Unstagable sacral decubitus ulcer with ostemomyelitis Wound care, Dilated CMP Cardiomyiopathy EF 35-40% Continue diuresis PPM/ICD Acute encephalopathy, probably metabolic or toxic Continues on Mechanical ventilator. ESRD on hemodialysis nephrology following Vascular eval. done re: LUE AV graft, see note Bilateral pleural effusions Anticipate improvement with Permanent atrial fibrillation and flutter Not on anticoagulation because of anemia thrombocytopenia Change noted to BB agent to IV. Diabetes mellitus type 2 Fingerstick Q4h NSTEMI type 2 Cardiology following Schizophrenia continue home meds Legally blind supportive care hypertension Monitor BP Hypokalemia resolved Pulmonary hypertension by history Dysphagia s/p PEG tube Severe malnutrition/hypoalbuminemia with FTT: 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, personal attendant following PEG placed on 01/02/19 Decubitus ulcer s/p colostomy wound care consult History of sacral osteomyelitis and LE ulcers Completed Antibiotics Place on contact isolation for ESBL Klebsiella pneumonia on wound culture 01/02/19 h/o Peripheral neuropathy: Continue gabapentin Anemia of chronic disease, with a drop in h/h again Transfuse 1 units of PRBC -s/p PRBC, follow cbc- no occult GI bleed noted. -Pt is s/p x1 DDVAP RUL atelectasis, nebs as needed DVT prophylaxis Lovenox DNR poor prognosis Disposition: Awaiting on SNF HD setup I spoke with his nephew Jennifer Mims, Director of our Lab Plan is patient to go back to [facility] with contract in place for him to come here for Hemodialysis See ID note regarding further ABX transfuse 1 unit of PRBC today Disposition: DC-50 TO HOSPICE (HOME) Time spent for discharge: 55 mins Core Measure Documentation - Palliative Care Palliative Care/ Comfort Measures: Hospice Care Exam - Physical Exam Narrative exam: Narrative exam: Gen: severely disable, nad, awake, alert x 1, lethargic HEENT: pupils reactive, op dried out, mouth open Neck: supple, trach CVS/Heart: irreg irregular, normal S1S2, pulses present bilaterally Chest/Lungs: diminished bs ymmetrical chest expansion, good air entry bilaterally GI/Abdomen:peg, colostomy present,+bowel sounds, no guarding or rebound /Bladder: no suprapubic tenderness Extermity/Skin: contracted,ulcer left 5th finger, echymosis, multiple pressure ulcers, see wound documentation for detailed exam MSK: no FROM x 4 Neuro: CN 2-12 grossly intact except vision, no new focal deficits Psych: calm - Constitutional Vitals: Temp Pulse Resp BP Pulse Ox 98.6 F 104 H 18 113/53 96 06/03/19 05:25 06/03/19 08:09 06/03/19 08:09 06/03/19 05:25 06/03/19 05:25 Plan Activity: advance as tolerated, fall precautions Diet: renal Follow up with: KB RODRIGUES MD [Primary Care Provider] - 3-5 Days Prescriptions: Ipratropium/Albuterol Sulfate [DUONEB *Not for PRN Use*] 1 ampul IH TIDRT #120 ampul.neb
[2019-06-03] MEDS: EPOETIN ALFA 20,000 UNIT/1 ML INJ IV PRN (11:40)
--- NOTE | 2019-06-03 11:55 | Progress Note ---
Assessment and Plan Assessment: * End stage renal disease (outpatient TTS schedule) * Acute hypoxic respiratory failure s/p trach * s/p KEON pneumonia --Sputum cx: MDR Acinetobacter * Cardiomyopathy - EF 35-40% * Atrial fibrillation * History of CVA * Anemia secondary to ESRD * Secondary hyperparathyroidism * Decubitis ulcer Plan * Will stop HD MWF via LUE AVG given hospice status * ID following - recommendations appreciated * Nutrition per primary team * Dose medications for renal function * Epogen 20k TIW prn * Overall prognosis remains poor; family now accepting hospice care; will continue to follow as needed We will continue to follow patient for renal related issues. Thank you for this consult. Subjective Principal diagnosis: Respiratory failure, acute on chronic systolic HF, ESRD Interval history: Patient likely to go to hospice per hospitalist discussion with family. Has been tolerating HD sessions per HD nurses with minimal fluid removal. Patient remains at baseline poor mental status. Seen on HD today Objective - Exam Narrative Exam: General appearance: chronically ill, intubated, frail EENT: normocephalic Neck: trach collar in place Respiratory: coarse mechanical breath sounds bilaterally Cardiology: regular, S1S2, no edema Gastrointestinal: PEG and colostomy noted Integumentary: warm and dry Psychiatric: unable to assess - Vital Signs Vital signs: Vital Signs - 12hr 06/03/19 06/03/19 05:25 08:09 Temperature 98.6 F Pulse Rate 95 H Pulse Rate [ 104 H Anterior Bilateral Throughout] Respiratory 18 Rate Respiratory 18 Rate [Anterior Bilateral Throughout] Blood Pressure 113/53 O2 Sat by Pulse 96 Oximetry Qn 400ml/min via AVG - Lab 06/02/19 12:00 06/01/19 Unknown Most recent lab results ABG pH 7.424 pH Units (7.350-7.450) 03/19/19 04:23 ABG pCO2 48.0 mm Hg 03/19/19 04:23 ABG pO2 78.3 mm Hg (80.0-90.0) L 03/19/19 04:23 ABG HCO3 30.7 mmol/L (20.0-26.0) H 03/19/19 04:23 ABG O2 Saturation 97.0 % (95.0-99.0) 03/19/19 04:23 Calcium 9.6 mg/dL (8.4-10.2) 06/01/19 Unknown Phosphorus 2.60 mg/dL (2.5-4.5) 05/28/19 10:57 Magnesium 2.70 mg/dL (1.7-2.3) H 03/30/19 10:13 Medications & Allergies - Medications Allergies/Adverse Reactions: Allergies haloperidol [From Haldol] Adverse Reaction (Verified 03/13/18 12:10) Unknown haloperidol lactate [From Haldol] Adverse Reaction (Verified 03/13/18 12:10) Unknown Home Medications: Home Medications Medication Instructions Recorded Confirmed Last Taken Type risperiDONE [RisperDAL] 1 mg PO QAM 03/13/18 02/21/19 Unknown History Sertraline [Zoloft] 100 mg PO QDAY 08/26/18 02/21/19 Unknown History Polyethylene Glycol 3350 [Miralax 17 gm PO QDAY #30 packet 11/05/18 02/21/19 Unknown Rx 3350] Aspirin EC [Halfprin EC] 81 mg PO DAILY #30 11/19/18 02/21/19 Unknown Rx Docusate Sodium [Colace CAP] 100 mg PO BID #60 11/19/18 02/21/19 Unknown Rx Folic Acid [Folvite] 1 mg PO DAILY #30 tab 11/19/18 02/21/19 Unknown Rx Famotidine [Pepcid] 20 mg PO DAILY tablet 12/08/18 02/21/19 Unknown Rx Sevelamer Carbonate [Renvela] 800 mg PO TIDWM tablet 12/08/18 02/21/19 Unknown Rx Acetaminophen [Acetaminophen TAB] 650 mg PO Q12H PRN 12/15/18 02/21/19 Unknown History Insulin Aspart (Nf) [NovoLOG 100 See Protocol SQ QWEEK 12/15/18 02/21/19 Unknown History UNITS/ML VIAL] Ipratropium/Albuterol Sulfate 1 ampul IH TIDRT #120 ampul.neb 06/03/19 Unknown Rx [DUONEB *Not for PRN Use*] Active Medications: Generic Name Dose Route Start Last Admin Trade Name Freq PRN Reason Stop Dose Admin Acetaminophen 650 mg 05/18/19 23:33 06/01/19 02:11 Tylenol PO 650 mg Q6HR PRN Administration PAIN Albuterol/Ipratropium 1 ampul 02/24/19 20:00 06/03/19 07:46 Duoneb *Not For Prn Use* IH 1 ampul TIDRT SANCHEZ Administration Lipase/Protease/Amylase 1 each 04/10/19 15:16 Pancreaze 10,500 Unit FEEDTUBE PRN PRN For Clogged Feeding Tube Epoetin Solitario 20,000 unit 03/24/19 11:17 06/03/19 11:40 Procrit IV 20,000 unit UMA PRN Administration hemodialysis Famotidine 20 mg 02/23/19 10:00 06/03/19 09:48 Pepcid PO 20 mg DAILY SANCHEZ Administration Sodium Chloride 100 mls @ 999 mls/hr 05/13/19 12:45 Nacl 0.9% IV UMA PRN Hypotension Insulin Human Regular 0 units 02/26/19 12:00 06/03/19 05:54 Humulin R SUB-Q Not Given Q6HR SANCHEZ Protocol Risperidone 1 mg 02/25/19 13:00 06/03/19 09:48 Risperdal PO 1 mg DAILY SANCHEZ Administration Sertraline HCl 100 mg 02/25/19 13:00 06/03/19 09:48 Zoloft PO 100 mg DAILY SANCHEZ Administration Simple Syrup 15 ml 04/10/19 15:16 Simple Syrup FEEDTUBE PRN PRN Hypoglycemia Simple Syrup 30 ml 04/10/19 15:16 Simple Syrup FEEDTUBE PRN PRN Hypoglycemia Sodium Bicarbonate 325 mg 04/10/19 15:16 Sodium Bicarbonate FEEDTUBE PRN PRN For Clogged Feeding Tube Sodium Hypochlorite 1 applic 04/01/19 13:00 06/03/19 09:49 Dakin's Half Strength TP 1 applicatio BID SANCHEZ Administration
[2019-06-03] MEDS: ACETAMINOPHEN 325 MG TAB PO PRN ×2 (12:15→23:52)
[2019-06-03] MEDS ORDERED: IPRATROPIUM/ALBUTEROL SULFATE 3 ML AMPUL.NEB IH ONE (14:32)
--- NOTE | 2019-06-03 17:15 | Progress Note ---
Assessment and Plan Assessment and plan: Patient is a 63-year-old -[place] man from [facility] with a plethora of co-morbidities including blindness, CVA, CHF, PPM/ICD, loop recorder since 2012 that is MRI compatible, IDDM type 2, sepsis left foot ulcer, afib, ESRD with complications on HD MWF, hypertension, AOCD and GERD who presented to the ED with hypotensive after intubation in the emergency room. Still intubated, diagnosed with fluid overload, pleural effusion. Patient has had recurrent admission in the hospital for similar reason and was recently discharged from the hospital following treatment of Severe Sepsis due to Necrotizing Unstagable sacral decubitus ulcer with ostemomylitis. He has been admitted since the 02/21/2019. Trach and PEG was done Acute respiratory failure on mechanical ventilator >96 hrs- NOW EXTUBATED AND TRACH CAPPED Trach placed on 03/03/19 Pulm consult appreciated weaning trial VAP BUNDLE ASPIRATION BUNDLE Continue T-piece Finished therapy for Acinetobacter Per pulmonary and I do agree Agree with ID note. Patient is a DNR. He is not to be placed back on the ventilator. Acetinetobacter was seen in lungs last time, most likely could resurface their again. Remainder for those who are not as familiar with this case. Patient has been in the hospital on this particular stay over 3 months. Acute pulmonary edema, fluid overload on CXR repeat xray intermittently Dialysis Necrotizing Unstagable sacral decubitus ulcer with ostemomyelitis Wound care, Dilated CMP Cardiomyiopathy EF 35-40% Continue diuresis PPM/ICD Acute encephalopathy, probably metabolic or toxic Continues on Mechanical ventilator. ESRD on hemodialysis nephrology following Vascular eval. done re: LUE AV graft, see note Bilateral pleural effusions Anticipate improvement with Permanent atrial fibrillation and flutter Not on anticoagulation because of anemia thrombocytopenia Change noted to BB agent to IV. Diabetes mellitus type 2 Fingerstick Q4h NSTEMI type 2 Cardiology following Schizophrenia continue home meds Legally blind supportive care hypertension Monitor BP Hypokalemia resolved Pulmonary hypertension by history Dysphagia s/p PEG tube Severe malnutrition/hypoalbuminemia with FTT: 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, rug washer following PEG placed on 01/02/19 Decubitus ulcer s/p colostomy wound care consult History of sacral osteomyelitis and LE ulcers Completed Antibiotics Place on contact isolation for ESBL Klebsiella pneumonia on wound culture 01/02/19 h/o Peripheral neuropathy: Continue gabapentin Anemia of chronic disease, with a drop in h/h again Transfuse 1 units of PRBC -s/p PRBC, follow cbc- no occult GI bleed noted. -Pt is s/p x1 DDVAP RUL atelectasis, nebs as needed DVT prophylaxis Lovenox DNR poor prognosis Disposition: Awaiting on SNF HD setup I spoke with his nephrew Jennifer Prasanna, Director of our Lab Plan is patient to go back to [facility] TODAY PER FAMILY REQUEST. History Interval history: Patient seen and examined, awake, answers a few questions but lethargic, LOW GRADE FEVER, Hospitalist Physical - Physical exam Narrative exam: Narrative exam: Gen: severely disable, nad, awake, alert x 1, lethargic HEENT: pupils reactive, op dried out, mouth open Neck: supple, trach CVS/Heart: irreg irregular, normal S1S2, pulses present bilaterally Chest/Lungs: diminished bs ymmetrical chest expansion, good air entry bilaterally GI/Abdomen:peg, colostomy present,+bowel sounds, no guarding or rebound /Bladder: no suprapubic tenderness Extermity/Skin: contracted,ulcer left 5th finger, echymosis, multiple pressure ulcers, see wound documentation for detailed exam MSK: no FROM x 4 Neuro: CN 2-12 grossly intact except vision, no new focal deficits Psych: calm - Constitutional Vitals: Temp Pulse Resp BP Pulse Ox 98.3 F 105 H 20 117/51 100 06/03/19 14:00 06/03/19 14:52 06/03/19 14:52 06/03/19 14:00 06/03/19 14:40 General appearance: Present: no acute distress, other (T peace). Absent: well- nourished Results - Labs CBC & Chem 7: 06/02/19 12:00 06/01/19 Unknown Labs: Laboratory Last Values WBC 10.0 K/mm3 (4.5-11.0) 06/01/19 Unknown RBC 2.37 M/mm3 (3.65-5.03) L 06/01/19 Unknown Hgb 7.6 gm/dl (11.8-15.2) L 06/02/19 12:00 Hct 24.1 % (35.5-45.6) L 06/02/19 12:00 MCV 81 fl (84-94) L 06/01/19 Unknown MCH 26 pg (28-32) L 06/01/19 Unknown MCHC 32 % (32-34) 06/01/19 Unknown RDW 21.5 % (13.2-15.2) H 06/01/19 Unknown Plt Count 392 K/mm3 (140-440) 06/01/19 Unknown Lymph % (Auto) 7.5 % (13.4-35.0) L 05/28/19 10:57 [place] % (Auto) 7.8 % (0.0-7.3) H 05/28/19 10:57 Eos % (Auto) 4.2 % (0.0-4.3) 05/28/19 10:57 Baso % (Auto) 1.0 % (0.0-1.8) 05/28/19 10:57 Lymph # 0.9 K/mm3 (1.2-5.4) L 05/28/19 10:57 [place] # 0.9 K/mm3 (0.0-0.8) H 05/28/19 10:57 Eos # 0.5 K/mm3 (0.0-0.4) H 05/28/19 10:57 Baso # 0.1 K/mm3 (0.0-0.1) 05/28/19 10:57 Add Manual Diff Complete 03/21/19 06:30 Total Counted 100 03/21/19 06:30 Seg Neutrophils % 79.5 % (40.0-70.0) H 05/28/19 10:57 Seg Neuts % (Manual) 81.0 % (40.0-70.0) H 03/21/19 06:30 Band Neutrophils % 0 % 03/21/19 06:30 Lymphocytes % (Manual) 8.0 % (13.4-35.0) L 03/21/19 06:30 Reactive Lymphs % (Man) 0 % 03/21/19 06:30 Monocytes % (Manual) 1.0 % (0.0-7.3) 03/21/19 06:30 Eosinophils % (Manual) 8.0 % (0.0-4.3) H 03/21/19 06:30 Basophils % (Manual) 1.0 % (0.0-1.8) 03/21/19 06:30 Metamyelocytes % 1.0 % 03/21/19 06:30 Myelocytes % 0 % 03/21/19 06:30 Promyelocytes % 0 % 03/21/19 06:30 Blast Cells % 0 % 03/21/19 06:30 Nucleated RBC % Not Reportable 03/21/19 06:30 Seg Neutrophils # 9.1 K/mm3 (1.8-7.7) H 05/28/19 10:57 Seg Neutrophils # Man 6.7 K/mm3 (1.8-7.7) 03/21/19 06:30 Band Neutrophils # 0.0 K/mm3 03/21/19 06:30 Lymphocytes # (Manual) 0.7 K/mm3 (1.2-5.4) L 03/21/19 06:30 Abs React Lymphs (Man) 0.0 K/mm3 03/21/19 06:30 Monocytes # (Manual) 0.1 K/mm3 (0.0-0.8) 03/21/19 06:30 Eosinophils # (Manual) 0.7 K/mm3 (0.0-0.4) H 03/21/19 06:30 Basophils # (Manual) 0.1 K/mm3 (0.0-0.1) 03/21/19 06:30 Metamyelocytes # 0.1 K/mm3 03/21/19 06:30 Myelocytes # 0.0 K/mm3 03/21/19 06:30 Promyelocytes # 0.0 K/mm3 03/21/19 06:30 Blast Cells # 0.0 K/mm3 03/21/19 06:30 WBC Morphology Not Reportable 03/21/19 06:30 Hypersegmented Neuts Not Reportable 03/21/19 06:30 Hyposegmented Neuts Not Reportable 03/21/19 06:30 Hypogranular Neuts Not Reportable 03/21/19 06:30 Smudge Cells Not Reportable 03/21/19 06:30 Toxic Granulation Not Reportable 03/21/19 06:30 Toxic Vacuolation Not Reportable 03/21/19 06:30 Dohle Bodies Not Reportable 03/21/19 06:30 Pelger-Huet Anomaly Not Reportable 03/21/19 06:30 Tramaine Rods Not Reportable 03/21/19 06:30 Platelet Estimate Consistent w auto 03/21/19 06:30 Clumped Platelets Not Reportable 03/21/19 06:30 Plt Clumps, EDTA Not Reportable 03/21/19 06:30 Large Platelets Not Reportable 03/21/19 06:30 Giant Platelets Not Reportable 03/21/19 06:30 Platelet Satelliting Not Reportable 03/21/19 06:30 Plt Morphology Comment Not Reportable 03/21/19 06:30 RBC Morphology Not Reportable 03/21/19 06:30 Dimorphic RBCs Not Reportable 03/21/19 06:30 Polychromasia Not Reportable 03/21/19 06:30 Hypochromasia Few 03/21/19 06:30 Poikilocytosis Few 03/21/19 06:30 Anisocytosis Few 03/21/19 06:30 Microcytosis Not Reportable 03/21/19 06:30 Macrocytosis Not Reportable 03/21/19 06:30 Spherocytes Not Reportable 03/21/19 06:30 Pappenheimer Bodies Not Reportable 03/21/19 06:30 Sickle Cells Not Reportable 03/21/19 06:30 Target Cells 1+ 03/21/19 06:30 Tear Drop Cells Not Reportable 03/21/19 06:30 Ovalocytes Few 03/21/19 06:30 Helmet Cells Not Reportable 03/21/19 06:30 Zhou-[place] Bodies Not Reportable 03/21/19 06:30 [place] Rings Not Reportable 03/21/19 06:30 Hebert Cells Not Reportable 03/21/19 06:30 Bite Cells Not Reportable 03/21/19 06:30 Crenated Cell Not Reportable 03/21/19 06:30 Elliptocytes Not Reportable 03/21/19 06:30 Acanthocytes (Spur) Not Reportable 03/21/19 06:30 Rouleaux Not Reportable 03/21/19 06:30 Hemoglobin C Crystals Not Reportable 03/21/19 06:30 Schistocytes Not Reportable 03/21/19 06:30 Malaria parasites Not Reportable 03/21/19 06:30 Jose Juan Bodies Not Reportable 03/21/19 06:30 Hem Pathologist Commnt No 03/21/19 06:30 PT 16.3 Sec. (12.2-14.9) H 03/01/19 09:39 INR 1.35 (0.87-1.13) H 03/01/19 09:39 APTT 33.7 Sec. (24.2-36.6) 02/21/19 18:30 D-Dimer 2987.82 ng/mlDDU (0-234) H 02/22/19 05:54 POC ABG pH 7.510 (7.35-7.45) H 03/18/19 06:38 ABG pH 7.424 pH Units (7.350-7.450) 03/19/19 04:23 POC ABG pCO2 38.9 (35-45) 03/18/19 06:38 ABG pCO2 48.0 mm Hg 03/19/19 04:23 POC ABG pO2 164 (80-105) H 03/18/19 06:38 ABG pO2 78.3 mm Hg (80.0-90.0) L 03/19/19 04:23 POC ABG HCO3 31.0 (22-26 mml/L) 03/18/19 06:38 ABG HCO3 30.7 mmol/L (20.0-26.0) H 03/19/19 04:23 POC ABG Total CO2 32 (23-27mmol/L) 03/18/19 06:38 POC ABG O2 Sat 100 03/18/19 06:38 ABG O2 Saturation 97.0 % (95.0-99.0) 03/19/19 04:23 ABG O2 Content 7.9 (0.0-44) 03/19/19 04:23 POC ABG Base Excess 8 ((-2) - (+3)mmol/L) 03/18/19 06:38 ABG Base Excess 5.8 mmol/L (-2.0-3.0) H 03/19/19 04:23 ABG Hemoglobin 5.8 gm/dl (14.0-18.0) L 03/19/19 04:23 ABG Carboxyhemoglobin 2.0 % (0.0-5.0) 03/19/19 04:23 ABG Methemoglobin 0.4 % (0.0-1.5) 03/19/19 04:23 Oxyhemoglobin 94.6 % (95.0-99.0) L 03/19/19 04:23 FiO2 35 % 03/19/19 04:23 Sodium 135 mmol/L (137-145) L 06/01/19 Unknown Potassium 3.9 mmol/L (3.6-5.0) 06/01/19 Unknown Chloride 92.4 mmol/L (98-107) L 06/01/19 Unknown Carbon Dioxide 28 mmol/L (22-30) 06/01/19 Unknown Anion Gap 19 mmol/L 06/01/19 Unknown BUN 80 mg/dL (9-20) H 06/01/19 Unknown Creatinine 4.4 mg/dL (0.8-1.5) H D 06/01/19 Unknown Estimated GFR 16 ml/min 06/01/19 Unknown BUN/Creatinine Ratio 18 % 06/01/19 Unknown Glucose 121 mg/dL (75-100) H 06/01/19 Unknown POC Glucose 141 (70-105) H 06/03/19 05:37 Lactic Acid 1.00 mmol/L (0.7-2.0) 02/21/19 20:58 Calcium 9.6 mg/dL (8.4-10.2) 06/01/19 Unknown Phosphorus 2.60 mg/dL (2.5-4.5) 05/28/19 10:57 Magnesium 2.70 mg/dL (1.7-2.3) H 03/30/19 10:13 Iron 17 ug/dL (49-181) L 06/01/19 20:00 TIBC 80 mcg/dL (250-450) L 06/01/19 20:00 % Saturation 26.92 % 05/29/19 12:49 Transferrin 61 mg/dl (180-329) L 05/29/19 12:49 Ferritin 3849.0 ng/mL (13.0-400.0) H 06/01/19 20:00 Total Bilirubin 0.30 mg/dL (0.1-1.2) 05/28/19 10:57 AST 25 units/L (5-40) 05/28/19 10:57 ALT 25 units/L (7-56) 05/28/19 10:57 Alkaline Phosphatase 170 units/L (35-129) H 05/28/19 10:57 Ammonia 28.0 umol/L (25-60) 02/21/19 20:04 Total Creatine Kinase 64 units/L (55-170) 02/22/19 03:42 CK-MB (CK-2) 3.7 ng/mL (0.0-4.0) 02/22/19 03:42 CK-MB (CK-2) Rel Index 5.7 (0-4) H 02/22/19 03:42 Troponin T 0.193 ng/mL (0.00-0.029) H* 02/22/19 03:42 Total Protein 7.5 g/dL (6.3-8.2) 05/28/19 10:57 Albumin 2.2 g/dL (3.9-5) L 05/28/19 10:57 Albumin/Globulin Ratio 0.4 % 05/28/19 10:57 Triglycerides 51 mg/dL (2-149) 02/21/19 18:30 Cholesterol 82 mg/dL (50-199) 02/21/19 18:30 LDL Cholesterol Direct 36 mg/dL (50-130) L 02/21/19 18:30 HDL Cholesterol 40 mg/dL (40-59) 02/21/19 18:30 Cholesterol/HDL Ratio 2.05 % 02/21/19 18:30 TSH 2.760 mlU/mL (0.270-4.200) 02/21/19 20:04 PTH Intact 199.5 pg/mL (15-65) H 05/28/19 10:57 Salicylates < 0.3 mg/dL (2.8-20.0) L 02/21/19 20:04 Acetaminophen < 5.0 ug/mL (10.0-30.0) L 02/21/19 20:04 Hepatitis A IgM Ab Non-reactive (NonReactive) 05/28/19 16:57 Hep Bs Antigen Non-reactive (Negative) 05/28/19 16:57 Hep B Core IgM Ab Non-reactive (NonReactive) 05/28/19 16:57 Hepatitis C Antibody Non-reactive (NonReactive) 05/28/19 16:57 Blood Type O POSITIVE 06/01/19 06:45 Antibody Screen Negative 06/01/19 06:45 Crossmatch See Detail 06/01/19 06:45 Active Medications - Current Medications Current Medications: Generic Name Dose Route Start Last Admin Trade Name Freq PRN Reason Stop Dose Admin Acetaminophen 650 mg 05/18/19 23:33 06/03/19 12:15 Tylenol PO 650 mg Q6HR PRN Administration PAIN Albuterol/Ipratropium 1 ampul 02/24/19 20:00 06/03/19 14:32 Duoneb *Not For Prn Use* IH 1 ampul TIDRT SANCHEZ Administration Lipase/Protease/Amylase 1 each 04/10/19 15:16 Pancreaze 10,500 Unit FEEDTUBE PRN PRN For Clogged Feeding Tube Epoetin Solitario 20,000 unit 03/24/19 11:17 06/03/19 11:40 Procrit IV 20,000 unit UMA PRN Administration hemodialysis Famotidine 20 mg 02/23/19 10:00 06/03/19 09:48 Pepcid PO 20 mg DAILY SANCHEZ Administration Sodium Chloride 100 mls @ 999 mls/hr 05/13/19 12:45 Nacl 0.9% IV UMA PRN Hypotension Insulin Human Regular 0 units 02/26/19 12:00 06/03/19 14:51 Humulin R SUB-Q Not Given Q6HR [facility] Protocol Risperidone 1 mg 02/25/19 13:00 06/03/19 09:48 Risperdal PO 1 mg DAILY SANCHEZ Administration Sertraline HCl 100 mg 02/25/19 13:00 06/03/19 09:48 Zoloft PO 100 mg DAILY SANCHEZ Administration Simple Syrup 15 ml 04/10/19 15:16 Simple Syrup FEEDTUBE PRN PRN Hypoglycemia Simple Syrup 30 ml 04/10/19 15:16 Simple Syrup FEEDTUBE PRN PRN Hypoglycemia Sodium Bicarbonate 325 mg 04/10/19 15:16 Sodium Bicarbonate FEEDTUBE PRN PRN For Clogged Feeding Tube Sodium Hypochlorite 1 applic 04/01/19 13:00 06/03/19 09:49 Dakin's Half Strength TP 1 applicatio BID SANCHEZ Administration Nutrition/Malnutrition Assess - Dietary Evaluation Nutrition/Malnutrition Findings: Nutrition Notes Start: 02/22/19 12:51 Freq: Status: Active Protocol: Document 06/02/19 11:52 CT (Rec: 06/02/19 12:08 CT [id number]) Co-Sign 06/02/19 11:52 KH Nutrition Notes Initial or Follow up Reassessment Current Diagnosis CKD (stage V CKD),Diabetes, Hypertension,Heart Failure Other Pertinent Diagnosis Sacral PU, ESRD on HD (T/Thurs /Sat), Schizophrenia,Blind in L eye,S/P trach Current Diet Nepro at 50 ml/hr w/Abhilash BID Labs/Tests POC Glu 108 Pertinent Medications Humulin Height 5 ft 10 in Weight 75.1 kg [place] Body Weight (kg) 75.45 BMI 23.7 Weight change and time frame Wt gain noted. Likely d/t fluid change. Subjective/Other Information Observed Nepro infusing at goal rate. Per RN pt has been recieving Abhilash BID. Pt has not had any GI complications. Percent of energy/protein needs met: 100%/100% Burn Absent Trauma Absent Minimum of two criteria No physical signs of malnutrition #2 Nutrition Diagnosis Increased nutrient needs ( specify in comment below) Diagnosis Progress(for reassessment Continues documentation) #1 Nutrition Diagnosis Inadequate oral intake Diagnosis Progress(for reassessment Continues documentation) Is patient on ventilator? No Is Patient Ambulatory and/or Out of Bed No REE-([facility]-confined to bed) 1861.944 Kcal/Kg value to use for calculation 35 Approximate Energy Requirements Using 2629 kcal/Kg Calculation Used for Recommendations Kcal/kg Additional Notes Pro needs 82-102 g/day (1.2-1. 5 g/kg) Fluid per MD Nutrition Intervention Change Diet Order: Continue TF Nutrition Support: Nepro with Carbsteady 1.8 at 50 ml/hr Flush 200 ml q4hr Kcal 2,160 Protein (gm) 97 Fluid (mL) 872 Add Supplement/Snack (indicate name/kcal Abhilash BID /protein ) Provides kCal: 190 Provides Protein (gm) 5 Goal #1 Continue to meet at least 75% of calorie and protein needs via TF Anticipated Discharge Needs: TF Follow-Up By: 06/09/19 Additional Comments Follow up for TF rate and receiving Abhilash
[2019-06-04] MEDS: INSULIN REGULAR, HUMAN 100 UNITS/1 ML SUB-Q SCH ×3 (00:13→12:25)
--- NOTE | 2019-06-04 07:57 | Progress Note ---
Assessment and Plan 63 y/o male with multiple medical issues admitted with altered mental status, acute respiratory failure requiring mechanical ventilation, now trached, on HD unable to find placement given this combination, now with recurrent fevers. No new pulmonary recommendations. No objection to discharge if this is going to happen. 1. Continue capping trials. Nasal cannula therapy. 2. HD per renal 3. PT/OT if possible 4. CM working on placement 5. No objection to discharge once placement is found 6. Per IMS will discuss hospice with family Subjective Date of service: 06/04/19 Principal diagnosis: Respiratory failure, acute on chronic systolic HF, ESRD Interval history: No acute event. Spoke with IMS yesterday who plans to discharge to hospice at a facility. Objective Vital Signs - 12hr 06/03/19 06/03/19 06/04/19 22:00 23:42 04:25 Temperature 101.9 F H Pulse Rate 115 H Respiratory 18 20 Rate Blood Pressure 108/65 O2 Sat by Pulse 99 Oximetry O2 Sat by Pulse 99 Oximetry [ Assessment] 06/04/19 05:47 Temperature 99.4 F Pulse Rate 107 H Respiratory 16 Rate Blood Pressure 115/52 O2 Sat by Pulse 100 Oximetry O2 Sat by Pulse Oximetry [ Assessment] Constitutional: no acute distress, alert Eyes: non-icteric ENT: oropharynx moist Neck: supple Effort: normal Ascultation: Bilateral: diminished breath sounds, other (coarse BS bilaterally) Percussion: Bilateral: not dull Cardiovascular: regular rate and rhythm (no mrg) Gastrointestinal: normoactive bowel sounds, soft, non-tender, non-distended, other (ostomy in place, brown stool) Extremities: no cyanosis, no edema, pink and warm Neurologic: other (mild weakness LUE, o/w nonfocal) Psychiatric: other (unable to assess) CBC and BMP: 06/02/19 12:00 06/01/19 Unknown ABG, PT/INR, D-dimer: ABG POC ABG pH 7.510 (7.35-7.45) H 03/18/19 06:38 ABG pH 7.424 pH Units (7.350-7.450) 03/19/19 04:23 POC ABG pCO2 38.9 (35-45) 03/18/19 06:38 ABG pCO2 48.0 mm Hg 03/19/19 04:23 POC ABG pO2 164 (80-105) H 03/18/19 06:38 ABG pO2 78.3 mm Hg (80.0-90.0) L 03/19/19 04:23 POC ABG HCO3 31.0 (22-26 mml/L) 03/18/19 06:38 POC ABG Total CO2 32 (23-27mmol/L) 03/18/19 06:38 POC ABG O2 Sat 100 03/18/19 06:38 ABG O2 Saturation 97.0 % (95.0-99.0) 03/19/19 04:23 PT/INR, D-dimer PT 16.3 Sec. (12.2-14.9) H 03/01/19 09:39 INR 1.35 (0.87-1.13) H 03/01/19 09:39 D-Dimer 2987.82 ng/mlDDU (0-234) H 02/22/19 05:54 Abnormal lab findings: Abnormal Labs 02/21/19 02/21/19 02/21/19 18:30 18:30 18:30 WBC RBC 3.26 L Hgb 8.8 L Hct 29.0 L MCV MCH 27 L MCHC 30 L RDW 19.1 H Plt Count Lymph % (Auto) 6.1 L [place] % (Auto) Eos % (Auto) Baso % (Auto) Lymph # 0.4 L [place] # Eos # Baso # Seg Neutrophils % 86.2 H Seg Neuts % (Manual) Lymphocytes % (Manual) Eosinophils % (Manual) Seg Neutrophils # Lymphocytes # (Manual) Eosinophils # (Manual) PT INR D-Dimer POC ABG pH POC ABG pCO2 POC ABG pO2 ABG pO2 ABG HCO3 ABG Base Excess ABG Hemoglobin Oxyhemoglobin Sodium 133 L Potassium 3.3 L Chloride 93.1 L Carbon Dioxide 33 H BUN Creatinine Glucose 161 H POC Glucose Calcium Phosphorus Magnesium Iron TIBC Transferrin Ferritin ALT Alkaline Phosphatase 136 H Total Creatine Kinase 37 L CK-MB (CK-2) Rel Index Troponin T 0.192 H* Albumin 2.4 L LDL Cholesterol Direct 36 L PTH Intact Salicylates Acetaminophen Crossmatch 02/21/19 02/21/19 02/21/19 18:42 20:04 20:04 WBC RBC Hgb Hct MCV MCH MCHC RDW Plt Count Lymph % (Auto) [place] % (Auto) Eos % (Auto) Baso % (Auto) Lymph # [place] # Eos # Baso # Seg Neutrophils % Seg Neuts % (Manual) Lymphocytes % (Manual) Eosinophils % (Manual) Seg Neutrophils # Lymphocytes # (Manual) Eosinophils # (Manual) PT INR D-Dimer POC ABG pH POC ABG pCO2 56.7 H POC ABG pO2 291 H ABG pO2 ABG HCO3 ABG Base Excess ABG Hemoglobin Oxyhemoglobin Sodium Potassium Chloride Carbon Dioxide BUN Creatinine Glucose POC Glucose Calcium Phosphorus Magnesium Iron TIBC Transferrin Ferritin ALT Alkaline Phosphatase Total Creatine Kinase CK-MB (CK-2) Rel Index Troponin T Albumin LDL Cholesterol Direct PTH Intact Salicylates < 0.3 L Acetaminophen < 5.0 L Crossmatch 02/21/19 02/22/19 02/22/19 22:35 03:42 03:42 WBC RBC 3.20 L Hgb 8.8 L Hct 27.6 L MCV MCH MCHC RDW 18.9 H Plt Count Lymph % (Auto) 7.4 L [place] % (Auto) Eos % (Auto) Baso % (Auto) Lymph # 0.7 L [place] # Eos # Baso # Seg Neutrophils % 84.7 H Seg Neuts % (Manual) Lymphocytes % (Manual) Eosinophils % (Manual) Seg Neutrophils # Lymphocytes # (Manual) Eosinophils # (Manual) PT INR D-Dimer POC ABG pH POC ABG pCO2 POC ABG pO2 ABG pO2 ABG HCO3 ABG Base Excess ABG Hemoglobin Oxyhemoglobin Sodium 134 L Potassium 2.6 L* D Chloride Carbon Dioxide BUN Creatinine Glucose POC Glucose Calcium Phosphorus Magnesium Iron TIBC Transferrin Ferritin ALT Alkaline Phosphatase Total Creatine Kinase CK-MB (CK-2) Rel Index 5.2 H Troponin T 0.202 H* Albumin LDL Cholesterol Direct PTH Intact Salicylates Acetaminophen Crossmatch 02/22/19 02/22/19 02/22/19 03:42 05:54 09:04 WBC RBC Hgb Hct MCV MCH MCHC RDW Plt Count Lymph % (Auto) [place] % (Auto) Eos % (Auto) Baso % (Auto) Lymph # [place] # Eos # Baso # Seg Neutrophils % Seg Neuts % (Manual) Lymphocytes % (Manual) Eosinophils % (Manual) Seg Neutrophils # Lymphocytes # (Manual) Eosinophils # (Manual) PT INR D-Dimer 2987.82 H POC ABG pH 7.451 H POC ABG pCO2 POC ABG pO2 ABG pO2 ABG HCO3 ABG Base Excess ABG Hemoglobin Oxyhemoglobin Sodium Potassium Chloride Carbon Dioxide BUN Creatinine Glucose POC Glucose Calcium Phosphorus Magnesium Iron TIBC Transferrin Ferritin ALT Alkaline Phosphatase Total Creatine Kinase CK-MB (CK-2) Rel Index 5.7 H Troponin T 0.193 H* Albumin LDL Cholesterol Direct PTH Intact Salicylates Acetaminophen Crossmatch 02/22/19 02/22/19 02/23/19 10:36 23:56 00:52 WBC RBC Hgb Hct MCV MCH MCHC RDW Plt Count Lymph % (Auto) [place] % (Auto) Eos % (Auto) Baso % (Auto) Lymph # [place] # Eos # Baso # Seg Neutrophils % Seg Neuts % (Manual) Lymphocytes % (Manual) Eosinophils % (Manual) Seg Neutrophils # Lymphocytes # (Manual) Eosinophils # (Manual) PT INR D-Dimer POC ABG pH POC ABG pCO2 POC ABG pO2 ABG pO2 ABG HCO3 ABG Base Excess ABG Hemoglobin Oxyhemoglobin Sodium Potassium 3.1 L Chloride Carbon Dioxide BUN Creatinine Glucose POC Glucose 58 L 111 H Calcium Phosphorus Magnesium Iron TIBC Transferrin Ferritin ALT Alkaline Phosphatase Total Creatine Kinase CK-MB (CK-2) Rel Index Troponin T Albumin LDL Cholesterol Direct PTH Intact Salicylates Acetaminophen Crossmatch 02/23/19 02/23/19 02/23/19 05:00 06:35 14:26 WBC RBC Hgb Hct MCV MCH MCHC RDW Plt Count Lymph % (Auto) [place] % (Auto) Eos % (Auto) Baso % (Auto) Lymph # [place] # Eos # Baso # Seg Neutrophils % Seg Neuts % (Manual) Lymphocytes % (Manual) Eosinophils % (Manual) Seg Neutrophils # Lymphocytes # (Manual) Eosinophils # (Manual) PT INR D-Dimer POC ABG pH POC ABG pCO2 POC ABG pO2 ABG pO2 ABG HCO3 ABG Base Excess ABG Hemoglobin Oxyhemoglobin Sodium 135 L Potassium 3.1 L Chloride Carbon Dioxide BUN 21 H Creatinine 2.0 H Glucose 57 L POC Glucose 64 L 62 L Calcium Phosphorus Magnesium Iron TIBC Transferrin Ferritin ALT Alkaline Phosphatase Total Creatine Kinase CK-MB (CK-2) Rel Index Troponin T Albumin LDL Cholesterol Direct PTH Intact Salicylates Acetaminophen Crossmatch 02/24/19 02/24/19 02/24/19 02:11 04:12 04:55 WBC RBC 2.84 L Hgb 7.8 L Hct 24.5 L MCV MCH MCHC RDW 19.5 H Plt Count Lymph % (Auto) [place] % (Auto) Eos % (Auto) Baso % (Auto) Lymph # [place] # Eos # Baso # Seg Neutrophils % Seg Neuts % (Manual) Lymphocytes % (Manual) Eosinophils % (Manual) Seg Neutrophils # Lymphocytes # (Manual) Eosinophils # (Manual) PT INR D-Dimer POC ABG pH 7.511 H POC ABG pCO2 33.9 L POC ABG pO2 62 L ABG pO2 ABG HCO3 ABG Base Excess ABG Hemoglobin Oxyhemoglobin Sodium Potassium Chloride Carbon Dioxide BUN Creatinine Glucose POC Glucose 69 L Calcium Phosphorus Magnesium Iron TIBC Transferrin Ferritin ALT Alkaline Phosphatase Total Creatine Kinase CK-MB (CK-2) Rel Index Troponin T Albumin LDL Cholesterol Direct PTH Intact Salicylates Acetaminophen Crossmatch 02/24/19 02/24/19 02/25/19 04:55 05:41 04:45 WBC RBC Hgb Hct MCV MCH MCHC RDW Plt Count Lymph % (Auto) [place] % (Auto) Eos % (Auto) Baso % (Auto) Lymph # [place] # Eos # Baso # Seg Neutrophils % Seg Neuts % (Manual) Lymphocytes % (Manual) Eosinophils % (Manual) Seg Neutrophils # Lymphocytes # (Manual) Eosinophils # (Manual) PT INR D-Dimer POC ABG pH 7.466 H POC ABG pCO2 POC ABG pO2 75 L ABG pO2 ABG HCO3 ABG Base Excess ABG Hemoglobin Oxyhemoglobin Sodium Potassium Chloride Carbon Dioxide BUN Creatinine 1.8 H Glucose 73 L POC Glucose 127 H Calcium Phosphorus Magnesium Iron TIBC Transferrin Ferritin ALT Alkaline Phosphatase Total Creatine Kinase CK-MB (CK-2) Rel Index Troponin T Albumin LDL Cholesterol Direct PTH Intact Salicylates Acetaminophen Crossmatch 02/25/19 02/25/19 02/26/19 16:34 21:33 03:45 WBC RBC 2.96 L Hgb 8.0 L Hct 25.8 L MCV MCH 27 L MCHC 31 L RDW 20.0 H Plt Count Lymph % (Auto) [place] % (Auto) Eos % (Auto) Baso % (Auto) Lymph # [place] # Eos # Baso # Seg Neutrophils % Seg Neuts % (Manual) Lymphocytes % (Manual) Eosinophils % (Manual) Seg Neutrophils # Lymphocytes # (Manual) Eosinophils # (Manual) PT INR D-Dimer POC ABG pH POC ABG pCO2 POC ABG pO2 ABG pO2 ABG HCO3 ABG Base Excess ABG Hemoglobin Oxyhemoglobin Sodium Potassium Chloride Carbon Dioxide BUN Creatinine Glucose POC Glucose 141 H 106 H Calcium Phosphorus Magnesium Iron TIBC Transferrin Ferritin ALT Alkaline Phosphatase Total Creatine Kinase CK-MB (CK-2) Rel Index Troponin T Albumin LDL Cholesterol Direct PTH Intact Salicylates Acetaminophen Crossmatch 02/26/19 02/26/19 02/26/19 03:45 04:13 07:53 WBC RBC Hgb Hct MCV MCH MCHC RDW Plt Count Lymph % (Auto) [place] % (Auto) Eos % (Auto) Baso % (Auto) Lymph # [place] # Eos # Baso # Seg Neutrophils % Seg Neuts % (Manual) Lymphocytes % (Manual) Eosinophils % (Manual) Seg Neutrophils # Lymphocytes # (Manual) Eosinophils # (Manual) PT INR D-Dimer POC ABG pH 7.470 H POC ABG pCO2 POC ABG pO2 ABG pO2 ABG HCO3 ABG Base Excess ABG Hemoglobin Oxyhemoglobin Sodium Potassium Chloride Carbon Dioxide BUN Creatinine 1.8 H Glucose POC Glucose 110 H Calcium Phosphorus Magnesium Iron TIBC Transferrin Ferritin ALT Alkaline Phosphatase Total Creatine Kinase CK-MB (CK-2) Rel Index Troponin T Albumin LDL Cholesterol Direct PTH Intact Salicylates Acetaminophen Crossmatch 02/26/19 02/26/19 02/27/19 11:56 17:43 00:12 WBC RBC Hgb Hct MCV MCH MCHC RDW Plt Count Lymph % (Auto) [place] % (Auto) Eos % (Auto) Baso % (Auto) Lymph # [place] # Eos # Baso # Seg Neutrophils % Seg Neuts % (Manual) Lymphocytes % (Manual) Eosinophils % (Manual) Seg Neutrophils # Lymphocytes # (Manual) Eosinophils # (Manual) PT INR D-Dimer POC ABG pH POC ABG pCO2 POC ABG pO2 ABG pO2 ABG HCO3 ABG Base Excess ABG Hemoglobin Oxyhemoglobin Sodium Potassium Chloride Carbon Dioxide BUN Creatinine Glucose POC Glucose 112 H 127 H 127 H Calcium Phosphorus Magnesium Iron TIBC Transferrin Ferritin ALT Alkaline Phosphatase Total Creatine Kinase CK-MB (CK-2) Rel Index Troponin T Albumin LDL Cholesterol Direct PTH Intact Salicylates Acetaminophen Crossmatch 02/27/19 02/27/19 02/27/19 04:35 13:15 18:02 WBC RBC Hgb Hct MCV MCH MCHC RDW Plt Count Lymph % (Auto) [place] % (Auto) Eos % (Auto) Baso % (Auto) Lymph # [place] # Eos # Baso # Seg Neutrophils % Seg Neuts % (Manual) Lymphocytes % (Manual) Eosinophils % (Manual) Seg Neutrophils # Lymphocytes # (Manual) Eosinophils # (Manual) PT INR D-Dimer POC ABG pH 7.483 H POC ABG pCO2 POC ABG pO2 61 L ABG pO2 ABG HCO3 ABG Base Excess ABG Hemoglobin Oxyhemoglobin Sodium Potassium Chloride Carbon Dioxide BUN Creatinine Glucose POC Glucose 143 H 106 H Calcium Phosphorus Magnesium Iron TIBC Transferrin Ferritin ALT Alkaline Phosphatase Total Creatine Kinase CK-MB (CK-2) Rel Index Troponin T Albumin LDL Cholesterol Direct PTH Intact Salicylates Acetaminophen Crossmatch 02/28/19 02/28/19 02/28/19 05:50 11:59 17:52 WBC RBC Hgb Hct MCV MCH MCHC RDW Plt Count Lymph % (Auto) [place] % (Auto) Eos % (Auto) Baso % (Auto) Lymph # [place] # Eos # Baso # Seg Neutrophils % Seg Neuts % (Manual) Lymphocytes % (Manual) Eosinophils % (Manual) Seg Neutrophils # Lymphocytes # (Manual) Eosinophils # (Manual) PT INR D-Dimer POC ABG pH POC ABG pCO2 POC ABG pO2 ABG pO2 ABG HCO3 ABG Base Excess ABG Hemoglobin Oxyhemoglobin Sodium Potassium Chloride Carbon Dioxide BUN Creatinine Glucose POC Glucose 134 H 128 H 142 H Calcium Phosphorus Magnesium Iron TIBC Transferrin Ferritin ALT Alkaline Phosphatase Total Creatine Kinase CK-MB (CK-2) Rel Index Troponin T Albumin LDL Cholesterol Direct PTH Intact Salicylates Acetaminophen Crossmatch 02/28/19 03/01/19 03/01/19 23:13 05:40 09:39 WBC RBC Hgb Hct MCV MCH MCHC RDW Plt Count Lymph % (Auto) [place] % (Auto) Eos % (Auto) Baso % (Auto) Lymph # [place] # Eos # Baso # Seg Neutrophils % Seg Neuts % (Manual) Lymphocytes % (Manual) Eosinophils % (Manual) Seg Neutrophils # Lymphocytes # (Manual) Eosinophils # (Manual) PT 16.3 H INR 1.35 H D-Dimer POC ABG pH POC ABG pCO2 POC ABG pO2 ABG pO2 ABG HCO3 ABG Base Excess ABG Hemoglobin Oxyhemoglobin Sodium Potassium Chloride Carbon Dioxide BUN Creatinine Glucose POC Glucose 112 H 111 H Calcium Phosphorus Magnesium Iron TIBC Transferrin Ferritin ALT Alkaline Phosphatase Total Creatine Kinase CK-MB (CK-2) Rel Index Troponin T Albumin LDL Cholesterol Direct PTH Intact Salicylates Acetaminophen Crossmatch 03/01/19 03/01/19 03/01/19 11:56 13:54 17:59 WBC RBC Hgb Hct MCV MCH MCHC RDW Plt Count Lymph % (Auto) [place] % (Auto) Eos % (Auto) Baso % (Auto) Lymph # [place] # Eos # Baso # Seg Neutrophils % Seg Neuts % (Manual) Lymphocytes % (Manual) Eosinophils % (Manual) Seg Neutrophils # Lymphocytes # (Manual) Eosinophils # (Manual) PT INR D-Dimer POC ABG pH POC ABG pCO2 POC ABG pO2 ABG pO2 ABG HCO3 ABG Base Excess ABG Hemoglobin Oxyhemoglobin Sodium Potassium Chloride Carbon Dioxide BUN 33 H Creatinine 2.8 H D Glucose 176 H POC Glucose 199 H 147 H Calcium Phosphorus Magnesium Iron TIBC Transferrin Ferritin ALT Alkaline Phosphatase Total Creatine Kinase CK-MB (CK-2) Rel Index Troponin T Albumin LDL Cholesterol Direct PTH Intact Salicylates Acetaminophen Crossmatch 03/02/19 03/02/19 03/02/19 05:15 05:15 05:15 WBC RBC 2.73 L Hgb 7.4 L Hct 23.0 L MCV MCH 27 L MCHC RDW 19.9 H Plt Count Lymph % (Auto) [place] % (Auto) 7.9 H Eos % (Auto) 7.6 H Baso % (Auto) Lymph # 1.0 L [place] # Eos # 0.5 H Baso # Seg Neutrophils % Seg Neuts % (Manual) Lymphocytes % (Manual) Eosinophils % (Manual) Seg Neutrophils # Lymphocytes # (Manual) Eosinophils # (Manual) PT INR D-Dimer POC ABG pH POC ABG pCO2 POC ABG pO2 ABG pO2 ABG HCO3 ABG Base Excess ABG Hemoglobin Oxyhemoglobin Sodium Potassium Chloride Carbon Dioxide BUN 43 H Creatinine 3.2 H Glucose POC Glucose Calcium Phosphorus 2.30 L Magnesium Iron TIBC Transferrin Ferritin ALT Alkaline Phosphatase Total Creatine Kinase CK-MB (CK-2) Rel Index Troponin T Albumin LDL Cholesterol Direct PTH Intact 267.6 H Salicylates Acetaminophen Crossmatch 03/02/19 03/02/19 03/03/19 12:32 18:20 13:30 WBC RBC Hgb Hct MCV MCH MCHC RDW Plt Count Lymph % (Auto) [place] % (Auto) Eos % (Auto) Baso % (Auto) Lymph # [place] # Eos # Baso # Seg Neutrophils % Seg Neuts % (Manual) Lymphocytes % (Manual) Eosinophils % (Manual) Seg Neutrophils # Lymphocytes # (Manual) Eosinophils # (Manual) PT INR D-Dimer POC ABG pH POC ABG pCO2 POC ABG pO2 ABG pO2 ABG HCO3 ABG Base Excess ABG Hemoglobin Oxyhemoglobin Sodium Potassium Chloride 97.3 L Carbon Dioxide BUN 26 H Creatinine 2.2 H Glucose 73 L POC Glucose 111 H 156 H Calcium Phosphorus Magnesium Iron TIBC Transferrin Ferritin ALT Alkaline Phosphatase Total Creatine Kinase CK-MB (CK-2) Rel Index Troponin T Albumin LDL Cholesterol Direct PTH Intact Salicylates Acetaminophen Crossmatch 03/04/19 03/04/19 03/04/19 00:02 05:37 05:40 WBC RBC 2.63 L Hgb 7.2 L Hct 22.2 L MCV MCH MCHC RDW 20.2 H Plt Count Lymph % (Auto) 10.5 L [place] % (Auto) Eos % (Auto) 4.6 H Baso % (Auto) Lymph # 0.7 L [place] # Eos # Baso # Seg Neutrophils % 76.9 H Seg Neuts % (Manual) Lymphocytes % (Manual) Eosinophils % (Manual) Seg Neutrophils # Lymphocytes # (Manual) Eosinophils # (Manual) PT INR D-Dimer POC ABG pH POC ABG pCO2 POC ABG pO2 ABG pO2 ABG HCO3 ABG Base Excess ABG Hemoglobin Oxyhemoglobin Sodium Potassium Chloride Carbon Dioxide BUN Creatinine Glucose POC Glucose 136 H 123 H Calcium Phosphorus Magnesium Iron TIBC Transferrin Ferritin ALT Alkaline Phosphatase Total Creatine Kinase CK-MB (CK-2) Rel Index Troponin T Albumin LDL Cholesterol Direct PTH Intact Salicylates Acetaminophen Crossmatch 03/04/19 03/04/19 03/04/19 05:40 11:39 23:20 WBC RBC Hgb Hct MCV MCH MCHC RDW Plt Count Lymph % (Auto) [place] % (Auto) Eos % (Auto) Baso % (Auto) Lymph # [place] # Eos # Baso # Seg Neutrophils % Seg Neuts % (Manual) Lymphocytes % (Manual) Eosinophils % (Manual) Seg Neutrophils # Lymphocytes # (Manual) Eosinophils # (Manual) PT INR D-Dimer POC ABG pH POC ABG pCO2 POC ABG pO2 ABG pO2 ABG HCO3 ABG Base Excess ABG Hemoglobin Oxyhemoglobin Sodium Potassium Chloride Carbon Dioxide BUN 34 H Creatinine 2.7 H Glucose 114 H POC Glucose 175 H 151 H Calcium Phosphorus Magnesium Iron TIBC Transferrin Ferritin ALT Alkaline Phosphatase Total Creatine Kinase CK-MB (CK-2) Rel Index Troponin T Albumin LDL Cholesterol Direct PTH Intact Salicylates Acetaminophen Crossmatch 03/05/19 03/05/19 03/05/19 05:37 12:08 17:11 WBC RBC Hgb Hct MCV MCH MCHC RDW Plt Count Lymph % (Auto) [place] % (Auto) Eos % (Auto) Baso % (Auto) Lymph # [place] # Eos # Baso # Seg Neutrophils % Seg Neuts % (Manual) Lymphocytes % (Manual) Eosinophils % (Manual) Seg Neutrophils # Lymphocytes # (Manual) Eosinophils # (Manual) PT INR D-Dimer POC ABG pH POC ABG pCO2 POC ABG pO2 ABG pO2 ABG HCO3 ABG Base Excess ABG Hemoglobin Oxyhemoglobin Sodium Potassium Chloride Carbon Dioxide BUN Creatinine Glucose POC Glucose 134 H 135 H 135 H Calcium Phosphorus Magnesium Iron TIBC Transferrin Ferritin ALT Alkaline Phosphatase Total Creatine Kinase CK-MB (CK-2) Rel Index Troponin T Albumin LDL Cholesterol Direct PTH Intact Salicylates Acetaminophen Crossmatch 03/06/19 03/06/19 03/06/19 00:16 13:05 18:09 WBC RBC Hgb Hct MCV MCH MCHC RDW Plt Count Lymph % (Auto) [place] % (Auto) Eos % (Auto) Baso % (Auto) Lymph # [place] # Eos # Baso # Seg Neutrophils % Seg Neuts % (Manual) Lymphocytes % (Manual) Eosinophils % (Manual) Seg Neutrophils # Lymphocytes # (Manual) Eosinophils # (Manual) PT INR D-Dimer POC ABG pH POC ABG pCO2 POC ABG pO2 ABG pO2 ABG HCO3 ABG Base Excess ABG Hemoglobin Oxyhemoglobin Sodium Potassium Chloride Carbon Dioxide BUN Creatinine Glucose POC Glucose 117 H 113 H 131 H Calcium Phosphorus Magnesium Iron TIBC Transferrin Ferritin ALT Alkaline Phosphatase Total Creatine Kinase CK-MB (CK-2) Rel Index Troponin T Albumin LDL Cholesterol Direct PTH Intact Salicylates Acetaminophen Crossmatch 03/07/19 03/08/19 03/08/19 05:25 05:33 16:00 WBC RBC 2.44 L Hgb 6.6 L Hct 20.8 L MCV MCH 27 L MCHC RDW 19.2 H Plt Count Lymph % (Auto) [place] % (Auto) Eos % (Auto) 8.6 H Baso % (Auto) Lymph # 0.8 L [place] # Eos # 0.5 H Baso # Seg Neutrophils % 70.7 H Seg Neuts % (Manual) Lymphocytes % (Manual) Eosinophils % (Manual) Seg Neutrophils # Lymphocytes # (Manual) Eosinophils # (Manual) PT INR D-Dimer POC ABG pH POC ABG pCO2 POC ABG pO2 ABG pO2 ABG HCO3 ABG Base Excess ABG Hemoglobin Oxyhemoglobin Sodium Potassium Chloride Carbon Dioxide BUN Creatinine Glucose POC Glucose 106 H 108 H Calcium Phosphorus Magnesium Iron TIBC Transferrin Ferritin ALT Alkaline Phosphatase Total Creatine Kinase CK-MB (CK-2) Rel Index Troponin T Albumin LDL Cholesterol Direct PTH Intact Salicylates Acetaminophen Crossmatch 03/08/19 03/08/19 03/08/19 16:00 18:38 Unknown WBC RBC Hgb Hct MCV MCH MCHC RDW Plt Count Lymph % (Auto) [place] % (Auto) Eos % (Auto) Baso % (Auto) Lymph # [place] # Eos # Baso # Seg Neutrophils % Seg Neuts % (Manual) Lymphocytes % (Manual) Eosinophils % (Manual) Seg Neutrophils # Lymphocytes # (Manual) Eosinophils # (Manual) PT INR D-Dimer POC ABG pH POC ABG pCO2 POC ABG pO2 ABG pO2 ABG HCO3 ABG Base Excess ABG Hemoglobin Oxyhemoglobin Sodium Potassium 5.4 H D Chloride Carbon Dioxide BUN 47 H Creatinine 2.6 H Glucose POC Glucose 123 H Calcium Phosphorus Magnesium Iron TIBC Transferrin Ferritin ALT < 5 L Alkaline Phosphatase Total Creatine Kinase CK-MB (CK-2) Rel Index Troponin T Albumin 2.2 L LDL Cholesterol Direct PTH Intact Salicylates Acetaminophen Crossmatch See Detail 03/09/19 03/09/19 03/09/19 10:48 12:28 13:53 WBC RBC 2.85 L Hgb 7.7 L Hct 24.2 L MCV MCH 27 L MCHC RDW 18.7 H Plt Count Lymph % (Auto) [place] % (Auto) Eos % (Auto) Baso % (Auto) Lymph # [place] # Eos # Baso # Seg Neutrophils % Seg Neuts % (Manual) Lymphocytes % (Manual) Eosinophils % (Manual) Seg Neutrophils # Lymphocytes # (Manual) Eosinophils # (Manual) PT INR D-Dimer POC ABG pH POC ABG pCO2 POC ABG pO2 ABG pO2 ABG HCO3 30.5 H ABG Base Excess 5.6 H ABG Hemoglobin 8.1 L Oxyhemoglobin 93.8 L Sodium Potassium Chloride Carbon Dioxide BUN Creatinine Glucose POC Glucose 114 H Calcium Phosphorus Magnesium Iron TIBC Transferrin Ferritin ALT Alkaline Phosphatase Total Creatine Kinase CK-MB (CK-2) Rel Index Troponin T Albumin LDL Cholesterol Direct PTH Intact Salicylates Acetaminophen Crossmatch 03/09/19 03/09/19 03/10/19 17:58 23:53 12:01 WBC RBC Hgb Hct MCV MCH MCHC RDW Plt Count Lymph % (Auto) [place] % (Auto) Eos % (Auto) Baso % (Auto) Lymph # [place] # Eos # Baso # Seg Neutrophils % Seg Neuts % (Manual) Lymphocytes % (Manual) Eosinophils % (Manual) Seg Neutrophils # Lymphocytes # (Manual) Eosinophils # (Manual) PT INR D-Dimer POC ABG pH POC ABG pCO2 POC ABG pO2 ABG pO2 ABG HCO3 ABG Base Excess ABG Hemoglobin Oxyhemoglobin Sodium Potassium Chloride Carbon Dioxide BUN Creatinine Glucose POC Glucose 108 H 128 H 144 H Calcium Phosphorus Magnesium Iron TIBC Transferrin Ferritin ALT Alkaline Phosphatase Total Creatine Kinase CK-MB (CK-2) Rel Index Troponin T Albumin LDL Cholesterol Direct PTH Intact Salicylates Acetaminophen Crossmatch 03/10/19 03/11/19 03/11/19 16:50 00:24 05:02 WBC RBC Hgb Hct MCV MCH MCHC RDW Plt Count Lymph % (Auto) [place] % (Auto) Eos % (Auto) Baso % (Auto) Lymph # [place] # Eos # Baso # Seg Neutrophils % Seg Neuts % (Manual) Lymphocytes % (Manual) Eosinophils % (Manual) Seg Neutrophils # Lymphocytes # (Manual) Eosinophils # (Manual) PT INR D-Dimer POC ABG pH POC ABG pCO2 POC ABG pO2 ABG pO2 ABG HCO3 ABG Base Excess ABG Hemoglobin Oxyhemoglobin Sodium Potassium Chloride Carbon Dioxide BUN Creatinine Glucose POC Glucose 147 H 123 H 120 H Calcium Phosphorus Magnesium Iron TIBC Transferrin Ferritin ALT Alkaline Phosphatase Total Creatine Kinase CK-MB (CK-2) Rel Index Troponin T Albumin LDL Cholesterol Direct PTH Intact Salicylates Acetaminophen Crossmatch 03/11/19 03/11/19 03/11/19 11:56 12:20 18:37 WBC RBC Hgb Hct MCV MCH MCHC RDW Plt Count Lymph % (Auto) [place] % (Auto) Eos % (Auto) Baso % (Auto) Lymph # [place] # Eos # Baso # Seg Neutrophils % Seg Neuts % (Manual) Lymphocytes % (Manual) Eosinophils % (Manual) Seg Neutrophils # Lymphocytes # (Manual) Eosinophils # (Manual) PT INR D-Dimer POC ABG pH POC ABG pCO2 POC ABG pO2 ABG pO2 ABG HCO3 ABG Base Excess ABG Hemoglobin Oxyhemoglobin Sodium Potassium 5.2 H Chloride Carbon Dioxide BUN Creatinine Glucose POC Glucose 123 H 125 H Calcium Phosphorus Magnesium Iron TIBC Transferrin Ferritin ALT Alkaline Phosphatase Total Creatine Kinase CK-MB (CK-2) Rel Index Troponin T Albumin LDL Cholesterol Direct PTH Intact Salicylates Acetaminophen Crossmatch 03/11/19 03/12/19 03/12/19 22:52 12:04 18:25 WBC RBC Hgb Hct MCV MCH MCHC RDW Plt Count Lymph % (Auto) [place] % (Auto) Eos % (Auto) Baso % (Auto) Lymph # [place] # Eos # Baso # Seg Neutrophils % Seg Neuts % (Manual) Lymphocytes % (Manual) Eosinophils % (Manual) Seg Neutrophils # Lymphocytes # (Manual) Eosinophils # (Manual) PT INR D-Dimer POC ABG pH POC ABG pCO2 POC ABG pO2 ABG pO2 ABG HCO3 ABG Base Excess ABG Hemoglobin Oxyhemoglobin Sodium Potassium Chloride Carbon Dioxide BUN Creatinine Glucose POC Glucose 110 H 106 H 118 H Calcium Phosphorus Magnesium Iron TIBC Transferrin Ferritin ALT Alkaline Phosphatase Total Creatine Kinase CK-MB (CK-2) Rel Index Troponin T Albumin LDL Cholesterol Direct PTH Intact Salicylates Acetaminophen Crossmatch 03/12/19 03/13/19 03/13/19 23:36 04:38 04:38 WBC RBC 2.95 L Hgb 7.9 L Hct 24.9 L MCV MCH 27 L MCHC RDW 19.9 H Plt Count Lymph % (Auto) 11.1 L [place] % (Auto) 8.1 H Eos % (Auto) 4.4 H Baso % (Auto) Lymph # 0.9 L [place] # Eos # Baso # Seg Neutrophils % 75.4 H Seg Neuts % (Manual) Lymphocytes % (Manual) Eosinophils % (Manual) Seg Neutrophils # Lymphocytes # (Manual) Eosinophils # (Manual) PT INR D-Dimer POC ABG pH POC ABG pCO2 POC ABG pO2 ABG pO2 ABG HCO3 ABG Base Excess ABG Hemoglobin Oxyhemoglobin Sodium 136 L Potassium 5.1 H Chloride 93.8 L Carbon Dioxide BUN 48 H Creatinine 2.7 H Glucose 102 H POC Glucose 115 H Calcium Phosphorus Magnesium Iron TIBC Transferrin Ferritin ALT < 5 L Alkaline Phosphatase 143 H Total Creatine Kinase CK-MB (CK-2) Rel Index Troponin T Albumin 2.5 L LDL Cholesterol Direct PTH Intact Salicylates Acetaminophen Crossmatch 03/13/19 03/13/19 03/13/19 05:33 13:37 18:03 WBC RBC Hgb Hct MCV MCH MCHC RDW Plt Count Lymph % (Auto) [place] % (Auto) Eos % (Auto) Baso % (Auto) Lymph # [place] # Eos # Baso # Seg Neutrophils % Seg Neuts % (Manual) Lymphocytes % (Manual) Eosinophils % (Manual) Seg Neutrophils # Lymphocytes # (Manual) Eosinophils # (Manual) PT INR D-Dimer POC ABG pH POC ABG pCO2 POC ABG pO2 ABG pO2 ABG HCO3 ABG Base Excess ABG Hemoglobin Oxyhemoglobin Sodium Potassium Chloride Carbon Dioxide BUN Creatinine Glucose POC Glucose 140 H 150 H 158 H Calcium Phosphorus Magnesium Iron TIBC Transferrin Ferritin ALT Alkaline Phosphatase Total Creatine Kinase CK-MB (CK-2) Rel Index Troponin T Albumin LDL Cholesterol Direct PTH Intact Salicylates Acetaminophen Crossmatch 03/13/19 03/14/19 03/14/19 23:32 05:24 12:20 WBC RBC Hgb Hct MCV MCH MCHC RDW Plt Count Lymph % (Auto) [place] % (Auto) Eos % (Auto) Baso % (Auto) Lymph # [place] # Eos # Baso # Seg Neutrophils % Seg Neuts % (Manual) Lymphocytes % (Manual) Eosinophils % (Manual) Seg Neutrophils # Lymphocytes # (Manual) Eosinophils # (Manual) PT INR D-Dimer POC ABG pH POC ABG pCO2 POC ABG pO2 ABG pO2 ABG HCO3 ABG Base Excess ABG Hemoglobin Oxyhemoglobin Sodium Potassium Chloride Carbon Dioxide BUN Creatinine Glucose POC Glucose 162 H 146 H 127 H Calcium Phosphorus Magnesium Iron TIBC Transferrin Ferritin ALT Alkaline Phosphatase Total Creatine Kinase CK-MB (CK-2) Rel Index Troponin T Albumin LDL Cholesterol Direct PTH Intact Salicylates Acetaminophen Crossmatch 03/14/19 03/14/19 03/15/19 18:05 23:57 04:38 WBC 12.8 H RBC 3.11 L Hgb 8.1 L Hct 26.5 L MCV MCH 26 L MCHC 31 L RDW 19.7 H Plt Count Lymph % (Auto) 4.4 L [place] % (Auto) 7.4 H Eos % (Auto) Baso % (Auto) Lymph # 0.6 L [place] # 0.9 H Eos # Baso # Seg Neutrophils % 87.3 H Seg Neuts % (Manual) Lymphocytes % (Manual) Eosinophils % (Manual) Seg Neutrophils # 11.2 H Lymphocytes # (Manual) Eosinophils # (Manual) PT INR D-Dimer POC ABG pH POC ABG pCO2 POC ABG pO2 ABG pO2 ABG HCO3 ABG Base Excess ABG Hemoglobin Oxyhemoglobin Sodium Potassium Chloride Carbon Dioxide BUN Creatinine Glucose POC Glucose 142 H 155 H Calcium Phosphorus Magnesium Iron TIBC Transferrin Ferritin ALT Alkaline Phosphatase Total Creatine Kinase CK-MB (CK-2) Rel Index Troponin T Albumin LDL Cholesterol Direct PTH Intact Salicylates Acetaminophen Crossmatch 03/15/19 03/15/19 03/15/19 04:38 05:31 11:32 WBC RBC Hgb Hct MCV MCH MCHC RDW Plt Count Lymph % (Auto) [place] % (Auto) Eos % (Auto) Baso % (Auto) Lymph # [place] # Eos # Baso # Seg Neutrophils % Seg Neuts % (Manual) Lymphocytes % (Manual) Eosinophils % (Manual) Seg Neutrophils # Lymphocytes # (Manual) Eosinophils # (Manual) PT INR D-Dimer POC ABG pH POC ABG pCO2 POC ABG pO2 ABG pO2 ABG HCO3 ABG Base Excess ABG Hemoglobin Oxyhemoglobin Sodium 135 L Potassium Chloride 91.9 L Carbon Dioxide BUN 54 H Creatinine 2.8 H Glucose 128 H POC Glucose 160 H 109 H Calcium 11.1 H Phosphorus Magnesium Iron TIBC Transferrin Ferritin ALT Alkaline Phosphatase 161 H Total Creatine Kinase CK-MB (CK-2) Rel Index Troponin T Albumin 2.3 L LDL Cholesterol Direct PTH Intact Salicylates Acetaminophen Crossmatch 03/15/19 03/15/19 03/16/19 18:15 23:41 05:40 WBC RBC Hgb Hct MCV MCH MCHC RDW Plt Count Lymph % (Auto) [place] % (Auto) Eos % (Auto) Baso % (Auto) Lymph # [place] # Eos # Baso # Seg Neutrophils % Seg Neuts % (Manual) Lymphocytes % (Manual) Eosinophils % (Manual) Seg Neutrophils # Lymphocytes # (Manual) Eosinophils # (Manual) PT INR D-Dimer POC ABG pH POC ABG pCO2 POC ABG pO2 ABG pO2 ABG HCO3 ABG Base Excess ABG Hemoglobin Oxyhemoglobin Sodium Potassium Chloride Carbon Dioxide BUN Creatinine Glucose POC Glucose 151 H 110 H 163 H Calcium Phosphorus Magnesium Iron TIBC Transferrin Ferritin ALT Alkaline Phosphatase Total Creatine Kinase CK-MB (CK-2) Rel Index Troponin T Albumin LDL Cholesterol Direct PTH Intact Salicylates Acetaminophen Crossmatch 03/16/19 03/16/19 03/16/19 11:55 17:04 23:58 WBC RBC Hgb Hct MCV MCH MCHC RDW Plt Count Lymph % (Auto) [place] % (Auto) Eos % (Auto) Baso % (Auto) Lymph # [place] # Eos # Baso # Seg Neutrophils % Seg Neuts % (Manual) Lymphocytes % (Manual) Eosinophils % (Manual) Seg Neutrophils # Lymphocytes # (Manual) Eosinophils # (Manual) PT INR D-Dimer POC ABG pH POC ABG pCO2 POC ABG pO2 ABG pO2 ABG HCO3 ABG Base Excess ABG Hemoglobin Oxyhemoglobin Sodium Potassium Chloride Carbon Dioxide BUN Creatinine Glucose POC Glucose 114 H 147 H 192 H Calcium Phosphorus Magnesium Iron TIBC Transferrin Ferritin ALT Alkaline Phosphatase Total Creatine Kinase CK-MB (CK-2) Rel Index Troponin T Albumin LDL Cholesterol Direct PTH Intact Salicylates Acetaminophen Crossmatch 03/17/19 03/17/19 03/17/19 05:53 11:17 17:01 WBC RBC Hgb Hct MCV MCH MCHC RDW Plt Count Lymph % (Auto) [place] % (Auto) Eos % (Auto) Baso % (Auto) Lymph # [place] # Eos # Baso # Seg Neutrophils % Seg Neuts % (Manual) Lymphocytes % (Manual) Eosinophils % (Manual) Seg Neutrophils # Lymphocytes # (Manual) Eosinophils # (Manual) PT INR D-Dimer POC ABG pH POC ABG pCO2 POC ABG pO2 ABG pO2 ABG HCO3 ABG Base Excess ABG Hemoglobin Oxyhemoglobin Sodium Potassium Chloride Carbon Dioxide BUN Creatinine Glucose POC Glucose 151 H 161 H 152 H Calcium Phosphorus Magnesium Iron TIBC Transferrin Ferritin ALT Alkaline Phosphatase Total Creatine Kinase CK-MB (CK-2) Rel Index Troponin T Albumin LDL Cholesterol Direct PTH Intact Salicylates Acetaminophen Crossmatch 03/17/19 03/18/19 03/18/19 21:47 04:15 04:44 WBC RBC Hgb Hct MCV MCH MCHC RDW Plt Count Lymph % (Auto) [place] % (Auto) Eos % (Auto) Baso % (Auto) Lymph # [place] # Eos # Baso # Seg Neutrophils % Seg Neuts % (Manual) Lymphocytes % (Manual) Eosinophils % (Manual) Seg Neutrophils # Lymphocytes # (Manual) Eosinophils # (Manual) PT INR D-Dimer POC ABG pH POC ABG pCO2 POC ABG pO2 ABG pO2 102.8 H ABG HCO3 28.3 H ABG Base Excess ABG Hemoglobin 10.4 L Oxyhemoglobin 94.5 L Sodium Potassium Chloride Carbon Dioxide BUN Creatinine Glucose POC Glucose 170 H 150 H Calcium Phosphorus Magnesium Iron TIBC Transferrin Ferritin ALT Alkaline Phosphatase Total Creatine Kinase CK-MB (CK-2) Rel Index Troponin T Albumin LDL Cholesterol Direct PTH Intact Salicylates Acetaminophen Crossmatch 03/18/19 03/18/19 03/18/19 06:38 12:12 17:47 WBC RBC Hgb Hct MCV MCH MCHC RDW Plt Count Lymph % (Auto) [place] % (Auto) Eos % (Auto) Baso % (Auto) Lymph # [place] # Eos # Baso # Seg Neutrophils % Seg Neuts % (Manual) Lymphocytes % (Manual) Eosinophils % (Manual) Seg Neutrophils # Lymphocytes # (Manual) Eosinophils # (Manual) PT INR D-Dimer POC ABG pH 7.510 H POC ABG pCO2 POC ABG pO2 164 H ABG pO2 ABG HCO3 ABG Base Excess ABG Hemoglobin Oxyhemoglobin Sodium Potassium Chloride Carbon Dioxide BUN Creatinine Glucose POC Glucose 145 H 149 H Calcium Phosphorus Magnesium Iron TIBC Transferrin Ferritin ALT Alkaline Phosphatase Total Creatine Kinase CK-MB (CK-2) Rel Index Troponin T Albumin LDL Cholesterol Direct PTH Intact Salicylates Acetaminophen Crossmatch 03/18/19 03/19/19 03/19/19 23:25 01:11 04:23 WBC 15.6 H RBC 2.51 L Hgb 6.5 L Hct 21.6 L MCV MCH 26 L MCHC 30 L RDW 19.8 H Plt Count Lymph % (Auto) 6.0 L [place] % (Auto) Eos % (Auto) Baso % (Auto) Lymph # 0.9 L [place] # 1.0 H Eos # Baso # Seg Neutrophils % 85.5 H Seg Neuts % (Manual) Lymphocytes % (Manual) Eosinophils % (Manual) Seg Neutrophils # 13.4 H Lymphocytes # (Manual) Eosinophils # (Manual) PT INR D-Dimer POC ABG pH POC ABG pCO2 POC ABG pO2 ABG pO2 78.3 L ABG HCO3 30.7 H ABG Base Excess 5.8 H ABG Hemoglobin 5.8 L Oxyhemoglobin 94.6 L Sodium Potassium Chloride Carbon Dioxide BUN Creatinine Glucose POC Glucose 190 H Calcium Phosphorus Magnesium Iron TIBC Transferrin Ferritin ALT Alkaline Phosphatase Total Creatine Kinase CK-MB (CK-2) Rel Index Troponin T Albumin LDL Cholesterol Direct PTH Intact Salicylates Acetaminophen Crossmatch 03/19/19 03/19/19 03/19/19 05:22 05:35 08:54 WBC RBC Hgb Hct MCV MCH MCHC RDW Plt Count Lymph % (Auto) [place] % (Auto) Eos % (Auto) Baso % (Auto) Lymph # [place] # Eos # Baso # Seg Neutrophils % Seg Neuts % (Manual) Lymphocytes % (Manual) Eosinophils % (Manual) Seg Neutrophils # Lymphocytes # (Manual) Eosinophils # (Manual) PT INR D-Dimer POC ABG pH POC ABG pCO2 POC ABG pO2 ABG pO2 ABG HCO3 ABG Base Excess ABG Hemoglobin Oxyhemoglobin Sodium Potassium Chloride Carbon Dioxide BUN Creatinine Glucose POC Glucose 167 H Calcium Phosphorus Magnesium Iron TIBC Transferrin Ferritin ALT Alkaline Phosphatase Total Creatine Kinase CK-MB (CK-2) Rel Index Troponin T Albumin LDL Cholesterol Direct PTH Intact Salicylates Acetaminophen Crossmatch See Detail See Detail 03/19/19 03/19/19 03/19/19 12:36 17:02 23:25 WBC RBC Hgb Hct MCV MCH MCHC RDW Plt Count Lymph % (Auto) [place] % (Auto) Eos % (Auto) Baso % (Auto) Lymph # [place] # Eos # Baso # Seg Neutrophils % Seg Neuts % (Manual) Lymphocytes % (Manual) Eosinophils % (Manual) Seg Neutrophils # Lymphocytes # (Manual) Eosinophils # (Manual) PT INR D-Dimer POC ABG pH POC ABG pCO2 POC ABG pO2 ABG pO2 ABG HCO3 ABG Base Excess ABG Hemoglobin Oxyhemoglobin Sodium Potassium Chloride Carbon Dioxide BUN Creatinine Glucose POC Glucose 167 H 135 H 136 H Calcium Phosphorus Magnesium Iron TIBC Transferrin Ferritin ALT Alkaline Phosphatase Total Creatine Kinase CK-MB (CK-2) Rel Index Troponin T Albumin LDL Cholesterol Direct PTH Intact Salicylates Acetaminophen Crossmatch 03/20/19 03/20/19 03/20/19 05:38 08:40 08:40 WBC RBC 2.61 L Hgb 7.1 L Hct 22.0 L MCV MCH 27 L MCHC RDW 19.6 H Plt Count Lymph % (Auto) 8.2 L [place] % (Auto) 8.3 H Eos % (Auto) 5.7 H Baso % (Auto) Lymph # 0.8 L [place] # Eos # 0.5 H Baso # Seg Neutrophils % 77.3 H Seg Neuts % (Manual) Lymphocytes % (Manual) Eosinophils % (Manual) Seg Neutrophils # Lymphocytes # (Manual) Eosinophils # (Manual) PT INR D-Dimer POC ABG pH POC ABG pCO2 POC ABG pO2 ABG pO2 ABG HCO3 ABG Base Excess ABG Hemoglobin Oxyhemoglobin Sodium Potassium Chloride 95.9 L Carbon Dioxide BUN 69 H Creatinine 2.8 H Glucose 115 H POC Glucose 134 H Calcium 10.5 H Phosphorus Magnesium Iron TIBC Transferrin Ferritin ALT Alkaline Phosphatase Total Creatine Kinase CK-MB (CK-2) Rel Index Troponin T Albumin LDL Cholesterol Direct PTH Intact Salicylates Acetaminophen Crossmatch 03/20/19 03/20/19 03/20/19 12:13 18:04 23:49 WBC RBC Hgb Hct MCV MCH MCHC RDW Plt Count Lymph % (Auto) [place] % (Auto) Eos % (Auto) Baso % (Auto) Lymph # [place] # Eos # Baso # Seg Neutrophils % Seg Neuts % (Manual) Lymphocytes % (Manual) Eosinophils % (Manual) Seg Neutrophils # Lymphocytes # (Manual) Eosinophils # (Manual) PT INR D-Dimer POC ABG pH POC ABG pCO2 POC ABG pO2 ABG pO2 ABG HCO3 ABG Base Excess ABG Hemoglobin Oxyhemoglobin Sodium Potassium Chloride Carbon Dioxide BUN Creatinine Glucose POC Glucose 144 H 165 H 172 H Calcium Phosphorus Magnesium Iron TIBC Transferrin Ferritin ALT Alkaline Phosphatase Total Creatine Kinase CK-MB (CK-2) Rel Index Troponin T Albumin LDL Cholesterol Direct PTH Intact Salicylates Acetaminophen Crossmatch 03/21/19 03/21/19 03/21/19 05:00 06:29 06:30 WBC RBC 2.72 L Hgb 7.4 L Hct 22.9 L MCV MCH 27 L MCHC RDW 19.4 H Plt Count Lymph % (Auto) [place] % (Auto) Eos % (Auto) Baso % (Auto) Lymph # [place] # Eos # Baso # Seg Neutrophils % Seg Neuts % (Manual) 81.0 H Lymphocytes % (Manual) 8.0 L Eosinophils % (Manual) 8.0 H Seg Neutrophils # Lymphocytes # (Manual) 0.7 L Eosinophils # (Manual) 0.7 H PT INR D-Dimer POC ABG pH POC ABG pCO2 POC ABG pO2 ABG pO2 ABG HCO3 ABG Base Excess ABG Hemoglobin Oxyhemoglobin Sodium Potassium Chloride Carbon Dioxide 33 H BUN 43 H Creatinine 1.7 H Glucose 145 H POC Glucose 156 H Calcium Phosphorus Magnesium Iron TIBC Transferrin Ferritin ALT Alkaline Phosphatase 212 H Total Creatine Kinase CK-MB (CK-2) Rel Index Troponin T Albumin 2.2 L LDL Cholesterol Direct PTH Intact Salicylates Acetaminophen Crossmatch 03/21/19 03/21/19 03/22/19 12:02 18:07 00:21 WBC RBC Hgb Hct MCV MCH MCHC RDW Plt Count Lymph % (Auto) [place] % (Auto) Eos % (Auto) Baso % (Auto) Lymph # [place] # Eos # Baso # Seg Neutrophils % Seg Neuts % (Manual) Lymphocytes % (Manual) Eosinophils % (Manual) Seg Neutrophils # Lymphocytes # (Manual) Eosinophils # (Manual) PT INR D-Dimer POC ABG pH POC ABG pCO2 POC ABG pO2 ABG pO2 ABG HCO3 ABG Base Excess ABG Hemoglobin Oxyhemoglobin Sodium Potassium Chloride Carbon Dioxide BUN Creatinine Glucose POC Glucose 163 H 144 H 153 H Calcium Phosphorus Magnesium Iron TIBC Transferrin Ferritin ALT Alkaline Phosphatase Total Creatine Kinase CK-MB (CK-2) Rel Index Troponin T Albumin LDL Cholesterol Direct PTH Intact Salicylates Acetaminophen Crossmatch 03/22/19 03/22/19 03/22/19 05:23 05:23 05:31 WBC RBC 2.58 L Hgb 7.1 L Hct 21.8 L MCV MCH 27 L MCHC RDW 19.2 H Plt Count Lymph % (Auto) [place] % (Auto) Eos % (Auto) Baso % (Auto) Lymph # [place] # Eos # Baso # Seg Neutrophils % Seg Neuts % (Manual) Lymphocytes % (Manual) Eosinophils % (Manual) Seg Neutrophils # Lymphocytes # (Manual) Eosinophils # (Manual) PT INR D-Dimer POC ABG pH POC ABG pCO2 POC ABG pO2 ABG pO2 ABG HCO3 ABG Base Excess ABG Hemoglobin Oxyhemoglobin Sodium 147 H Potassium Chloride Carbon Dioxide BUN 68 H Creatinine 2.5 H Glucose POC Glucose 116 H Calcium 10.3 H Phosphorus Magnesium Iron TIBC Transferrin Ferritin ALT Alkaline Phosphatase Total Creatine Kinase CK-MB (CK-2) Rel Index Troponin T Albumin LDL Cholesterol Direct PTH Intact Salicylates Acetaminophen Crossmatch 03/22/19 03/22/19 03/22/19 08:48 12:37 17:35 WBC RBC Hgb Hct MCV MCH MCHC RDW Plt Count Lymph % (Auto) [place] % (Auto) Eos % (Auto) Baso % (Auto) Lymph # [place] # Eos # Baso # Seg Neutrophils % Seg Neuts % (Manual) Lymphocytes % (Manual) Eosinophils % (Manual) Seg Neutrophils # Lymphocytes # (Manual) Eosinophils # (Manual) PT INR D-Dimer POC ABG pH POC ABG pCO2 POC ABG pO2 ABG pO2 ABG HCO3 ABG Base Excess ABG Hemoglobin Oxyhemoglobin Sodium Potassium Chloride Carbon Dioxide BUN Creatinine Glucose POC Glucose 143 H 155 H Calcium Phosphorus Magnesium Iron TIBC Transferrin Ferritin ALT Alkaline Phosphatase Total Creatine Kinase CK-MB (CK-2) Rel Index Troponin T Albumin LDL Cholesterol Direct PTH Intact Salicylates Acetaminophen Crossmatch See Detail 03/23/19 03/23/19 03/23/19 00:07 04:00 04:00 WBC 11.2 H RBC 2.32 L Hgb 6.4 L Hct 19.7 L* MCV MCH MCHC RDW 19.4 H Plt Count Lymph % (Auto) [place] % (Auto) Eos % (Auto) Baso % (Auto) Lymph # [place] # Eos # Baso # Seg Neutrophils % Seg Neuts % (Manual) Lymphocytes % (Manual) Eosinophils % (Manual) Seg Neutrophils # Lymphocytes # (Manual) Eosinophils # (Manual) PT INR D-Dimer POC ABG pH POC ABG pCO2 POC ABG pO2 ABG pO2 ABG HCO3 ABG Base Excess ABG Hemoglobin Oxyhemoglobin Sodium 147 H Potassium 5.2 H Chloride Carbon Dioxide BUN 86 H Creatinine 3.2 H Glucose 128 H POC Glucose 135 H Calcium 10.3 H Phosphorus Magnesium Iron TIBC Transferrin Ferritin ALT Alkaline Phosphatase Total Creatine Kinase CK-MB (CK-2) Rel Index Troponin T Albumin LDL Cholesterol Direct PTH Intact Salicylates Acetaminophen Crossmatch 03/23/19 03/23/19 03/23/19 05:21 11:36 11:36 WBC RBC Hgb 7.9 L Hct 25.0 L MCV MCH MCHC RDW Plt Count Lymph % (Auto) [place] % (Auto) Eos % (Auto) Baso % (Auto) Lymph # [place] # Eos # Baso # Seg Neutrophils % Seg Neuts % (Manual) Lymphocytes % (Manual) Eosinophils % (Manual) Seg Neutrophils # Lymphocytes # (Manual) Eosinophils # (Manual) PT INR D-Dimer POC ABG pH POC ABG pCO2 POC ABG pO2 ABG pO2 ABG HCO3 ABG Base Excess ABG Hemoglobin Oxyhemoglobin Sodium Potassium Chloride Carbon Dioxide BUN Creatinine Glucose POC Glucose 132 H 147 H Calcium Phosphorus Magnesium Iron TIBC Transferrin Ferritin ALT Alkaline Phosphatase Total Creatine Kinase CK-MB (CK-2) Rel Index Troponin T Albumin LDL Cholesterol Direct PTH Intact Salicylates Acetaminophen Crossmatch 03/23/19 03/24/19 03/24/19 17:31 01:22 04:20 WBC 12.2 H RBC 3.05 L Hgb 8.3 L Hct 25.9 L MCV MCH 27 L MCHC RDW 18.7 H Plt Count Lymph % (Auto) [place] % (Auto) Eos % (Auto) Baso % (Auto) Lymph # [place] # Eos # Baso # Seg Neutrophils % Seg Neuts % (Manual) Lymphocytes % (Manual) Eosinophils % (Manual) Seg Neutrophils # Lymphocytes # (Manual) Eosinophils # (Manual) PT INR D-Dimer POC ABG pH POC ABG pCO2 POC ABG pO2 ABG pO2 ABG HCO3 ABG Base Excess ABG Hemoglobin Oxyhemoglobin Sodium Potassium Chloride Carbon Dioxide BUN Creatinine Glucose POC Glucose 182 H 113 H Calcium Phosphorus Magnesium Iron TIBC Transferrin Ferritin ALT Alkaline Phosphatase Total Creatine Kinase CK-MB (CK-2) Rel Index Troponin T Albumin LDL Cholesterol Direct PTH Intact Salicylates Acetaminophen Crossmatch 03/24/19 03/24/19 03/24/19 04:20 11:59 18:14 WBC RBC Hgb Hct MCV MCH MCHC RDW Plt Count Lymph % (Auto) [place] % (Auto) Eos % (Auto) Baso % (Auto) Lymph # [place] # Eos # Baso # Seg Neutrophils % Seg Neuts % (Manual) Lymphocytes % (Manual) Eosinophils % (Manual) Seg Neutrophils # Lymphocytes # (Manual) Eosinophils # (Manual) PT INR D-Dimer POC ABG pH POC ABG pCO2 POC ABG pO2 ABG pO2 ABG HCO3 ABG Base Excess ABG Hemoglobin Oxyhemoglobin Sodium Potassium Chloride 94.8 L Carbon Dioxide 32 H BUN 53 H Creatinine 2.3 H Glucose POC Glucose 163 H 134 H Calcium Phosphorus Magnesium Iron TIBC Transferrin Ferritin ALT Alkaline Phosphatase Total Creatine Kinase CK-MB (CK-2) Rel Index Troponin T Albumin LDL Cholesterol Direct PTH Intact Salicylates Acetaminophen Crossmatch 03/24/19 03/25/19 03/25/19 23:15 05:52 12:02 WBC RBC Hgb Hct MCV MCH MCHC RDW Plt Count Lymph % (Auto) [place] % (Auto) Eos % (Auto) Baso % (Auto) Lymph # [place] # Eos # Baso # Seg Neutrophils % Seg Neuts % (Manual) Lymphocytes % (Manual) Eosinophils % (Manual) Seg Neutrophils # Lymphocytes # (Manual) Eosinophils # (Manual) PT INR D-Dimer POC ABG pH POC ABG pCO2 POC ABG pO2 ABG pO2 ABG HCO3 ABG Base Excess ABG Hemoglobin Oxyhemoglobin Sodium Potassium Chloride Carbon Dioxide BUN Creatinine Glucose POC Glucose 129 H 123 H 125 H Calcium Phosphorus Magnesium Iron TIBC Transferrin Ferritin ALT Alkaline Phosphatase Total Creatine Kinase CK-MB (CK-2) Rel Index Troponin T Albumin LDL Cholesterol Direct PTH Intact Salicylates Acetaminophen Crossmatch 03/25/19 03/26/19 03/26/19 17:27 00:30 05:35 WBC RBC 3.01 L Hgb 8.1 L Hct 25.7 L MCV MCH 27 L MCHC RDW 19.2 H Plt Count Lymph % (Auto) 11.4 L [place] % (Auto) Eos % (Auto) 8.0 H Baso % (Auto) Lymph # 1.0 L [place] # Eos # 0.7 H Baso # Seg Neutrophils % 73.9 H Seg Neuts % (Manual) Lymphocytes % (Manual) Eosinophils % (Manual) Seg Neutrophils # Lymphocytes # (Manual) Eosinophils # (Manual) PT INR D-Dimer POC ABG pH POC ABG pCO2 POC ABG pO2 ABG pO2 ABG HCO3 ABG Base Excess ABG Hemoglobin Oxyhemoglobin Sodium Potassium Chloride Carbon Dioxide BUN Creatinine Glucose POC Glucose 130 H 129 H Calcium Phosphorus Magnesium Iron TIBC Transferrin Ferritin ALT Alkaline Phosphatase Total Creatine Kinase CK-MB (CK-2) Rel Index Troponin T Albumin LDL Cholesterol Direct PTH Intact Salicylates Acetaminophen Crossmatch 03/26/19 03/26/19 03/26/19 05:35 05:45 12:16 WBC RBC Hgb Hct MCV MCH MCHC RDW Plt Count Lymph % (Auto) [place] % (Auto) Eos % (Auto) Baso % (Auto) Lymph # [place] # Eos # Baso # Seg Neutrophils % Seg Neuts % (Manual) Lymphocytes % (Manual) Eosinophils % (Manual) Seg Neutrophils # Lymphocytes # (Manual) Eosinophils # (Manual) PT INR D-Dimer POC ABG pH POC ABG pCO2 POC ABG pO2 ABG pO2 ABG HCO3 ABG Base Excess ABG Hemoglobin Oxyhemoglobin Sodium Potassium Chloride 94.9 L Carbon Dioxide 31 H BUN 44 H Creatinine 2.0 H Glucose POC Glucose 118 H 107 H Calcium Phosphorus Magnesium Iron TIBC Transferrin Ferritin ALT Alkaline Phosphatase Total Creatine Kinase CK-MB (CK-2) Rel Index Troponin T Albumin LDL Cholesterol Direct PTH Intact Salicylates Acetaminophen Crossmatch 03/26/19 03/27/19 03/27/19 17:56 00:36 05:37 WBC RBC Hgb Hct MCV MCH MCHC RDW Plt Count Lymph % (Auto) [place] % (Auto) Eos % (Auto) Baso % (Auto) Lymph # [place] # Eos # Baso # Seg Neutrophils % Seg Neuts % (Manual) Lymphocytes % (Manual) Eosinophils % (Manual) Seg Neutrophils # Lymphocytes # (Manual) Eosinophils # (Manual) PT INR D-Dimer POC ABG pH POC ABG pCO2 POC ABG pO2 ABG pO2 ABG HCO3 ABG Base Excess ABG Hemoglobin Oxyhemoglobin Sodium Potassium Chloride Carbon Dioxide BUN Creatinine Glucose POC Glucose 107 H 110 H 122 H Calcium Phosphorus Magnesium Iron TIBC Transferrin Ferritin ALT Alkaline Phosphatase Total Creatine Kinase CK-MB (CK-2) Rel Index Troponin T Albumin LDL Cholesterol Direct PTH Intact Salicylates Acetaminophen Crossmatch 03/27/19 03/27/19 03/28/19 11:22 18:00 05:17 WBC RBC Hgb Hct MCV MCH MCHC RDW Plt Count Lymph % (Auto) [place] % (Auto) Eos % (Auto) Baso % (Auto) Lymph # [place] # Eos # Baso # Seg Neutrophils % Seg Neuts % (Manual) Lymphocytes % (Manual) Eosinophils % (Manual) Seg Neutrophils # Lymphocytes # (Manual) Eosinophils # (Manual) PT INR D-Dimer POC ABG pH POC ABG pCO2 POC ABG pO2 ABG pO2 ABG HCO3 ABG Base Excess ABG Hemoglobin Oxyhemoglobin Sodium Potassium Chloride Carbon Dioxide BUN Creatinine Glucose POC Glucose 120 H 111 H 107 H Calcium Phosphorus Magnesium Iron TIBC Transferrin Ferritin ALT Alkaline Phosphatase Total Creatine Kinase CK-MB (CK-2) Rel Index Troponin T Albumin LDL Cholesterol Direct PTH Intact Salicylates Acetaminophen Crossmatch 03/28/19 03/28/19 03/29/19 12:27 18:08 05:47 WBC RBC Hgb Hct MCV MCH MCHC RDW Plt Count Lymph % (Auto) [place] % (Auto) Eos % (Auto) Baso % (Auto) Lymph # [place] # Eos # Baso # Seg Neutrophils % Seg Neuts % (Manual) Lymphocytes % (Manual) Eosinophils % (Manual) Seg Neutrophils # Lymphocytes # (Manual) Eosinophils # (Manual) PT INR D-Dimer POC ABG pH POC ABG pCO2 POC ABG pO2 ABG pO2 ABG HCO3 ABG Base Excess ABG Hemoglobin Oxyhemoglobin Sodium Potassium Chloride Carbon Dioxide BUN Creatinine Glucose POC Glucose 114 H 121 H 112 H Calcium Phosphorus Magnesium Iron TIBC Transferrin Ferritin ALT Alkaline Phosphatase Total Creatine Kinase CK-MB (CK-2) Rel Index Troponin T Albumin LDL Cholesterol Direct PTH Intact Salicylates Acetaminophen Crossmatch 03/29/19 03/29/19 03/30/19 12:14 18:08 00:31 WBC RBC Hgb Hct MCV MCH MCHC RDW Plt Count Lymph % (Auto) [place] % (Auto) Eos % (Auto) Baso % (Auto) Lymph # [place] # Eos # Baso # Seg Neutrophils % Seg Neuts % (Manual) Lymphocytes % (Manual) Eosinophils % (Manual) Seg Neutrophils # Lymphocytes # (Manual) Eosinophils # (Manual) PT INR D-Dimer POC ABG pH POC ABG pCO2 POC ABG pO2 ABG pO2 ABG HCO3 ABG Base Excess ABG Hemoglobin Oxyhemoglobin Sodium Potassium Chloride Carbon Dioxide BUN Creatinine Glucose POC Glucose 117 H 140 H 114 H Calcium Phosphorus Magnesium Iron TIBC Transferrin Ferritin ALT Alkaline Phosphatase Total Creatine Kinase CK-MB (CK-2) Rel Index Troponin T Albumin LDL Cholesterol Direct PTH Intact Salicylates Acetaminophen Crossmatch 03/30/19 03/30/19 03/30/19 10:13 10:13 23:53 WBC RBC 2.81 L Hgb 7.7 L Hct 24.3 L MCV MCH 27 L MCHC RDW 19.0 H Plt Count Lymph % (Auto) 12.2 L [place] % (Auto) Eos % (Auto) 7.9 H Baso % (Auto) Lymph # 1.0 L [place] # Eos # 0.6 H Baso # Seg Neutrophils % 72.3 H Seg Neuts % (Manual) Lymphocytes % (Manual) Eosinophils % (Manual) Seg Neutrophils # Lymphocytes # (Manual) Eosinophils # (Manual) PT INR D-Dimer POC ABG pH POC ABG pCO2 POC ABG pO2 ABG pO2 ABG HCO3 ABG Base Excess ABG Hemoglobin Oxyhemoglobin Sodium Potassium 5.1 H Chloride 96.5 L Carbon Dioxide BUN 73 H Creatinine 3.9 H D Glucose POC Glucose 114 H Calcium 10.3 H Phosphorus 6.30 H Magnesium 2.70 H Iron TIBC Transferrin Ferritin ALT Alkaline Phosphatase 185 H Total Creatine Kinase CK-MB (CK-2) Rel Index Troponin T Albumin 2.6 L LDL Cholesterol Direct PTH Intact Salicylates Acetaminophen Crossmatch 03/31/19 03/31/19 03/31/19 05:45 10:26 10:26 WBC RBC 3.01 L Hgb 8.2 L Hct 26.4 L MCV MCH 27 L MCHC 31 L RDW 20.3 H Plt Count Lymph % (Auto) 13.3 L [place] % (Auto) Eos % (Auto) 7.2 H Baso % (Auto) Lymph # 1.1 L [place] # Eos # 0.6 H Baso # Seg Neutrophils % 72.1 H Seg Neuts % (Manual) Lymphocytes % (Manual) Eosinophils % (Manual) Seg Neutrophils # Lymphocytes # (Manual) Eosinophils # (Manual) PT INR D-Dimer POC ABG pH POC ABG pCO2 POC ABG pO2 ABG pO2 ABG HCO3 ABG Base Excess ABG Hemoglobin Oxyhemoglobin Sodium Potassium Chloride 96.9 L Carbon Dioxide 33 H BUN 37 H Creatinine 2.4 H Glucose POC Glucose 108 H Calcium 10.3 H Phosphorus Magnesium Iron TIBC Transferrin Ferritin ALT Alkaline Phosphatase Total Creatine Kinase CK-MB (CK-2) Rel Index Troponin T Albumin LDL Cholesterol Direct PTH Intact Salicylates Acetaminophen Crossmatch 03/31/19 04/01/19 04/01/19 12:38 05:48 12:06 WBC RBC Hgb Hct MCV MCH MCHC RDW Plt Count Lymph % (Auto) [place] % (Auto) Eos % (Auto) Baso % (Auto) Lymph # [place] # Eos # Baso # Seg Neutrophils % Seg Neuts % (Manual) Lymphocytes % (Manual) Eosinophils % (Manual) Seg Neutrophils # Lymphocytes # (Manual) Eosinophils # (Manual) PT INR D-Dimer POC ABG pH POC ABG pCO2 POC ABG pO2 ABG pO2 ABG HCO3 ABG Base Excess ABG Hemoglobin Oxyhemoglobin Sodium Potassium Chloride Carbon Dioxide BUN Creatinine Glucose POC Glucose 108 H 114 H 111 H Calcium Phosphorus Magnesium Iron TIBC Transferrin Ferritin ALT Alkaline Phosphatase Total Creatine Kinase CK-MB (CK-2) Rel Index Troponin T Albumin LDL Cholesterol Direct PTH Intact Salicylates Acetaminophen Crossmatch 04/01/19 04/02/19 04/04/19 18:24 00:36 23:55 WBC RBC Hgb Hct MCV MCH MCHC RDW Plt Count Lymph % (Auto) [place] % (Auto) Eos % (Auto) Baso % (Auto) Lymph # [place] # Eos # Baso # Seg Neutrophils % Seg Neuts % (Manual) Lymphocytes % (Manual) Eosinophils % (Manual) Seg Neutrophils # Lymphocytes # (Manual) Eosinophils # (Manual) PT INR D-Dimer POC ABG pH POC ABG pCO2 POC ABG pO2 ABG pO2 ABG HCO3 ABG Base Excess ABG Hemoglobin Oxyhemoglobin Sodium Potassium Chloride Carbon Dioxide BUN Creatinine Glucose POC Glucose 113 H 117 H 109 H Calcium Phosphorus Magnesium Iron TIBC Transferrin Ferritin ALT Alkaline Phosphatase Total Creatine Kinase CK-MB (CK-2) Rel Index Troponin T Albumin LDL Cholesterol Direct PTH Intact Salicylates Acetaminophen Crossmatch 04/06/19 04/06/19 04/06/19 00:11 06:02 23:30 WBC RBC Hgb Hct MCV MCH MCHC RDW Plt Count Lymph % (Auto) [place] % (Auto) Eos % (Auto) Baso % (Auto) Lymph # [place] # Eos # Baso # Seg Neutrophils % Seg Neuts % (Manual) Lymphocytes % (Manual) Eosinophils % (Manual) Seg Neutrophils # Lymphocytes # (Manual) Eosinophils # (Manual) PT INR D-Dimer POC ABG pH POC ABG pCO2 POC ABG pO2 ABG pO2 ABG HCO3 ABG Base Excess ABG Hemoglobin Oxyhemoglobin Sodium Potassium Chloride Carbon Dioxide BUN Creatinine Glucose POC Glucose 116 H 112 H 112 H Calcium Phosphorus Magnesium Iron TIBC Transferrin Ferritin ALT Alkaline Phosphatase Total Creatine Kinase CK-MB (CK-2) Rel Index Troponin T Albumin LDL Cholesterol Direct PTH Intact Salicylates Acetaminophen Crossmatch 04/08/19 04/08/19 04/08/19 02:23 06:19 13:01 WBC RBC Hgb Hct MCV MCH MCHC RDW Plt Count Lymph % (Auto) [place] % (Auto) Eos % (Auto) Baso % (Auto) Lymph # [place] # Eos # Baso # Seg Neutrophils % Seg Neuts % (Manual) Lymphocytes % (Manual) Eosinophils % (Manual) Seg Neutrophils # Lymphocytes # (Manual) Eosinophils # (Manual) PT INR D-Dimer POC ABG pH POC ABG pCO2 POC ABG pO2 ABG pO2 ABG HCO3 ABG Base Excess ABG Hemoglobin Oxyhemoglobin Sodium Potassium Chloride Carbon Dioxide BUN Creatinine Glucose POC Glucose 144 H 126 H 118 H Calcium Phosphorus Magnesium Iron TIBC Transferrin Ferritin ALT Alkaline Phosphatase Total Creatine Kinase CK-MB (CK-2) Rel Index Troponin T Albumin LDL Cholesterol Direct PTH Intact Salicylates Acetaminophen Crossmatch 04/08/19 04/09/19 04/10/19 23:28 05:52 06:34 WBC RBC Hgb Hct MCV MCH MCHC RDW Plt Count Lymph % (Auto) [place] % (Auto) Eos % (Auto) Baso % (Auto) Lymph # [place] # Eos # Baso # Seg Neutrophils % Seg Neuts % (Manual) Lymphocytes % (Manual) Eosinophils % (Manual) Seg Neutrophils # Lymphocytes # (Manual) Eosinophils # (Manual) PT INR D-Dimer POC ABG pH POC ABG pCO2 POC ABG pO2 ABG pO2 ABG HCO3 ABG Base Excess ABG Hemoglobin Oxyhemoglobin Sodium Potassium Chloride Carbon Dioxide BUN Creatinine Glucose POC Glucose 119 H 116 H 114 H Calcium Phosphorus Magnesium Iron TIBC Transferrin Ferritin ALT Alkaline Phosphatase Total Creatine Kinase CK-MB (CK-2) Rel Index Troponin T Albumin LDL Cholesterol Direct PTH Intact Salicylates Acetaminophen Crossmatch 04/10/19 04/10/19 04/11/19 12:34 18:59 00:36 WBC RBC Hgb Hct MCV MCH MCHC RDW Plt Count Lymph % (Auto) [place] % (Auto) Eos % (Auto) Baso % (Auto) Lymph # [place] # Eos # Baso # Seg Neutrophils % Seg Neuts % (Manual) Lymphocytes % (Manual) Eosinophils % (Manual) Seg Neutrophils # Lymphocytes # (Manual) Eosinophils # (Manual) PT INR D-Dimer POC ABG pH POC ABG pCO2 POC ABG pO2 ABG pO2 ABG HCO3 ABG Base Excess ABG Hemoglobin Oxyhemoglobin Sodium Potassium Chloride Carbon Dioxide BUN Creatinine Glucose POC Glucose 112 H 109 H 124 H Calcium Phosphorus Magnesium Iron TIBC Transferrin Ferritin ALT Alkaline Phosphatase Total Creatine Kinase CK-MB (CK-2) Rel Index Troponin T Albumin LDL Cholesterol Direct PTH Intact Salicylates Acetaminophen Crossmatch 04/11/19 04/11/19 04/12/19 08:01 17:25 02:18 WBC RBC Hgb Hct MCV MCH MCHC RDW Plt Count Lymph % (Auto) [place] % (Auto) Eos % (Auto) Baso % (Auto) Lymph # [place] # Eos # Baso # Seg Neutrophils % Seg Neuts % (Manual) Lymphocytes % (Manual) Eosinophils % (Manual) Seg Neutrophils # Lymphocytes # (Manual) Eosinophils # (Manual) PT INR D-Dimer POC ABG pH POC ABG pCO2 POC ABG pO2 ABG pO2 ABG HCO3 ABG Base Excess ABG Hemoglobin Oxyhemoglobin Sodium Potassium Chloride Carbon Dioxide BUN Creatinine Glucose POC Glucose 118 H 106 H 125 H Calcium Phosphorus Magnesium Iron TIBC Transferrin Ferritin ALT Alkaline Phosphatase Total Creatine Kinase CK-MB (CK-2) Rel Index Troponin T Albumin LDL Cholesterol Direct PTH Intact Salicylates Acetaminophen Crossmatch 04/12/19 04/12/19 04/12/19 06:24 12:22 17:13 WBC RBC Hgb Hct MCV MCH MCHC RDW Plt Count Lymph % (Auto) [place] % (Auto) Eos % (Auto) Baso % (Auto) Lymph # [place] # Eos # Baso # Seg Neutrophils % Seg Neuts % (Manual) Lymphocytes % (Manual) Eosinophils % (Manual) Seg Neutrophils # Lymphocytes # (Manual) Eosinophils # (Manual) PT INR D-Dimer POC ABG pH POC ABG pCO2 POC ABG pO2 ABG pO2 ABG HCO3 ABG Base Excess ABG Hemoglobin Oxyhemoglobin Sodium Potassium Chloride Carbon Dioxide BUN Creatinine Glucose POC Glucose 128 H 114 H 110 H Calcium Phosphorus Magnesium Iron TIBC Transferrin Ferritin ALT Alkaline Phosphatase Total Creatine Kinase CK-MB (CK-2) Rel Index Troponin T Albumin LDL Cholesterol Direct PTH Intact Salicylates Acetaminophen Crossmatch 04/13/19 04/13/19 04/13/19 06:59 07:31 07:31 WBC RBC 3.34 L Hgb 8.9 L Hct 28.6 L MCV MCH 27 L MCHC 31 L RDW 19.6 H Plt Count Lymph % (Auto) [place] % (Auto) Eos % (Auto) Baso % (Auto) Lymph # [place] # Eos # Baso # Seg Neutrophils % Seg Neuts % (Manual) Lymphocytes % (Manual) Eosinophils % (Manual) Seg Neutrophils # Lymphocytes # (Manual) Eosinophils # (Manual) PT INR D-Dimer POC ABG pH POC ABG pCO2 POC ABG pO2 ABG pO2 ABG HCO3 ABG Base Excess ABG Hemoglobin Oxyhemoglobin Sodium Potassium Chloride 96.4 L Carbon Dioxide 33 H BUN 66 H Creatinine 4.5 H Glucose 103 H POC Glucose 107 H Calcium Phosphorus Magnesium Iron TIBC Transferrin Ferritin ALT Alkaline Phosphatase Total Creatine Kinase CK-MB (CK-2) Rel Index Troponin T Albumin LDL Cholesterol Direct PTH Intact Salicylates Acetaminophen Crossmatch 04/13/19 04/14/19 04/14/19 23:43 05:50 13:07 WBC RBC Hgb Hct MCV MCH MCHC RDW Plt Count Lymph % (Auto) [place] % (Auto) Eos % (Auto) Baso % (Auto) Lymph # [place] # Eos # Baso # Seg Neutrophils % Seg Neuts % (Manual) Lymphocytes % (Manual) Eosinophils % (Manual) Seg Neutrophils # Lymphocytes # (Manual) Eosinophils # (Manual) PT INR D-Dimer POC ABG pH POC ABG pCO2 POC ABG pO2 ABG pO2 ABG HCO3 ABG Base Excess ABG Hemoglobin Oxyhemoglobin Sodium Potassium Chloride Carbon Dioxide BUN Creatinine Glucose POC Glucose 119 H 112 H 112 H Calcium Phosphorus Magnesium Iron TIBC Transferrin Ferritin ALT Alkaline Phosphatase Total Creatine Kinase CK-MB (CK-2) Rel Index Troponin T Albumin LDL Cholesterol Direct PTH Intact Salicylates Acetaminophen Crossmatch 04/14/19 04/15/19 04/15/19 18:35 01:18 05:17 WBC RBC Hgb Hct MCV MCH MCHC RDW Plt Count Lymph % (Auto) [place] % (Auto) Eos % (Auto) Baso % (Auto) Lymph # [place] # Eos # Baso # Seg Neutrophils % Seg Neuts % (Manual) Lymphocytes % (Manual) Eosinophils % (Manual) Seg Neutrophils # Lymphocytes # (Manual) Eosinophils # (Manual) PT INR D-Dimer POC ABG pH POC ABG pCO2 POC ABG pO2 ABG pO2 ABG HCO3 ABG Base Excess ABG Hemoglobin Oxyhemoglobin Sodium Potassium Chloride Carbon Dioxide BUN Creatinine Glucose POC Glucose 114 H 114 H 114 H Calcium Phosphorus Magnesium Iron TIBC Transferrin Ferritin ALT Alkaline Phosphatase Total Creatine Kinase CK-MB (CK-2) Rel Index Troponin T Albumin LDL Cholesterol Direct PTH Intact Salicylates Acetaminophen Crossmatch 04/15/19 04/15/19 04/16/19 11:50 23:39 05:41 WBC RBC Hgb Hct MCV MCH MCHC RDW Plt Count Lymph % (Auto) [place] % (Auto) Eos % (Auto) Baso % (Auto) Lymph # [place] # Eos # Baso # Seg Neutrophils % Seg Neuts % (Manual) Lymphocytes % (Manual) Eosinophils % (Manual) Seg Neutrophils # Lymphocytes # (Manual) Eosinophils # (Manual) PT INR D-Dimer POC ABG pH POC ABG pCO2 POC ABG pO2 ABG pO2 ABG HCO3 ABG Base Excess ABG Hemoglobin Oxyhemoglobin Sodium Potassium Chloride Carbon Dioxide BUN Creatinine Glucose POC Glucose 109 H 115 H 125 H Calcium Phosphorus Magnesium Iron TIBC Transferrin Ferritin ALT Alkaline Phosphatase Total Creatine Kinase CK-MB (CK-2) Rel Index Troponin T Albumin LDL Cholesterol Direct PTH Intact Salicylates Acetaminophen Crossmatch 04/16/19 04/17/19 04/17/19 12:53 01:00 12:38 WBC RBC Hgb Hct MCV MCH MCHC RDW Plt Count Lymph % (Auto) [place] % (Auto) Eos % (Auto) Baso % (Auto) Lymph # [place] # Eos # Baso # Seg Neutrophils % Seg Neuts % (Manual) Lymphocytes % (Manual) Eosinophils % (Manual) Seg Neutrophils # Lymphocytes # (Manual) Eosinophils # (Manual) PT INR D-Dimer POC ABG pH POC ABG pCO2 POC ABG pO2 ABG pO2 ABG HCO3 ABG Base Excess ABG Hemoglobin Oxyhemoglobin Sodium Potassium Chloride Carbon Dioxide BUN Creatinine Glucose POC Glucose 121 H 127 H 159 H Calcium Phosphorus Magnesium Iron TIBC Transferrin Ferritin ALT Alkaline Phosphatase Total Creatine Kinase CK-MB (CK-2) Rel Index Troponin T Albumin LDL Cholesterol Direct PTH Intact Salicylates Acetaminophen Crossmatch 04/17/19 04/17/19 04/18/19 18:27 23:36 07:19 WBC RBC 3.49 L Hgb 9.0 L Hct 29.9 L MCV MCH 26 L MCHC 30 L RDW 20.0 H Plt Count Lymph % (Auto) [place] % (Auto) Eos % (Auto) Baso % (Auto) Lymph # [place] # Eos # Baso # Seg Neutrophils % Seg Neuts % (Manual) Lymphocytes % (Manual) Eosinophils % (Manual) Seg Neutrophils # Lymphocytes # (Manual) Eosinophils # (Manual) PT INR D-Dimer POC ABG pH POC ABG pCO2 POC ABG pO2 ABG pO2 ABG HCO3 ABG Base Excess ABG Hemoglobin Oxyhemoglobin Sodium Potassium Chloride Carbon Dioxide BUN Creatinine Glucose POC Glucose 109 H 134 H Calcium Phosphorus Magnesium Iron TIBC Transferrin Ferritin ALT Alkaline Phosphatase Total Creatine Kinase CK-MB (CK-2) Rel Index Troponin T Albumin LDL Cholesterol Direct PTH Intact Salicylates Acetaminophen Crossmatch 04/18/19 04/18/19 04/18/19 07:19 12:16 17:09 WBC RBC Hgb Hct MCV MCH MCHC RDW Plt Count Lymph % (Auto) [place] % (Auto) Eos % (Auto) Baso % (Auto) Lymph # [place] # Eos # Baso # Seg Neutrophils % Seg Neuts % (Manual) Lymphocytes % (Manual) Eosinophils % (Manual) Seg Neutrophils # Lymphocytes # (Manual) Eosinophils # (Manual) PT INR D-Dimer POC ABG pH POC ABG pCO2 POC ABG pO2 ABG pO2 ABG HCO3 ABG Base Excess ABG Hemoglobin Oxyhemoglobin Sodium Potassium Chloride Carbon Dioxide BUN 41 H Creatinine 2.9 H Glucose 122 H POC Glucose 125 H 131 H Calcium Phosphorus Magnesium Iron TIBC Transferrin Ferritin ALT Alkaline Phosphatase Total Creatine Kinase CK-MB (CK-2) Rel Index Troponin T Albumin LDL Cholesterol Direct PTH Intact Salicylates Acetaminophen Crossmatch 04/18/19 04/19/19 04/19/19 23:57 05:55 11:35 WBC RBC Hgb Hct MCV MCH MCHC RDW Plt Count Lymph % (Auto) [place] % (Auto) Eos % (Auto) Baso % (Auto) Lymph # [place] # Eos # Baso # Seg Neutrophils % Seg Neuts % (Manual) Lymphocytes % (Manual) Eosinophils % (Manual) Seg Neutrophils # Lymphocytes # (Manual) Eosinophils # (Manual) PT INR D-Dimer POC ABG pH POC ABG pCO2 POC ABG pO2 ABG pO2 ABG HCO3 ABG Base Excess ABG Hemoglobin Oxyhemoglobin Sodium Potassium Chloride Carbon Dioxide BUN Creatinine Glucose POC Glucose 159 H 144 H 177 H Calcium Phosphorus Magnesium Iron TIBC Transferrin Ferritin ALT Alkaline Phosphatase Total Creatine Kinase CK-MB (CK-2) Rel Index Troponin T Albumin LDL Cholesterol Direct PTH Intact Salicylates Acetaminophen Crossmatch 04/19/19 04/20/19 04/20/19 16:36 02:05 06:28 WBC RBC Hgb Hct MCV MCH MCHC RDW Plt Count Lymph % (Auto) [place] % (Auto) Eos % (Auto) Baso % (Auto) Lymph # [place] # Eos # Baso # Seg Neutrophils % Seg Neuts % (Manual) Lymphocytes % (Manual) Eosinophils % (Manual) Seg Neutrophils # Lymphocytes # (Manual) Eosinophils # (Manual) PT INR D-Dimer POC ABG pH POC ABG pCO2 POC ABG pO2 ABG pO2 ABG HCO3 ABG Base Excess ABG Hemoglobin Oxyhemoglobin Sodium Potassium Chloride Carbon Dioxide BUN Creatinine Glucose POC Glucose 134 H 142 H 132 H Calcium Phosphorus Magnesium Iron TIBC Transferrin Ferritin ALT Alkaline Phosphatase Total Creatine Kinase CK-MB (CK-2) Rel Index Troponin T Albumin LDL Cholesterol Direct PTH Intact Salicylates Acetaminophen Crossmatch 04/20/19 04/20/19 04/21/19 12:37 23:34 05:59 WBC RBC Hgb Hct MCV MCH MCHC RDW Plt Count Lymph % (Auto) [place] % (Auto) Eos % (Auto) Baso % (Auto) Lymph # [place] # Eos # Baso # Seg Neutrophils % Seg Neuts % (Manual) Lymphocytes % (Manual) Eosinophils % (Manual) Seg Neutrophils # Lymphocytes # (Manual) Eosinophils # (Manual) PT INR D-Dimer POC ABG pH POC ABG pCO2 POC ABG pO2 ABG pO2 ABG HCO3 ABG Base Excess ABG Hemoglobin Oxyhemoglobin Sodium Potassium Chloride Carbon Dioxide BUN Creatinine Glucose POC Glucose 163 H 166 H 140 H Calcium Phosphorus Magnesium Iron TIBC Transferrin Ferritin ALT Alkaline Phosphatase Total Creatine Kinase CK-MB (CK-2) Rel Index Troponin T Albumin LDL Cholesterol Direct PTH Intact Salicylates Acetaminophen Crossmatch 04/21/19 04/21/19 04/21/19 12:07 17:22 23:43 WBC RBC Hgb Hct MCV MCH MCHC RDW Plt Count Lymph % (Auto) [place] % (Auto) Eos % (Auto) Baso % (Auto) Lymph # [place] # Eos # Baso # Seg Neutrophils % Seg Neuts % (Manual) Lymphocytes % (Manual) Eosinophils % (Manual) Seg Neutrophils # Lymphocytes # (Manual) Eosinophils # (Manual) PT INR D-Dimer POC ABG pH POC ABG pCO2 POC ABG pO2 ABG pO2 ABG HCO3 ABG Base Excess ABG Hemoglobin Oxyhemoglobin Sodium Potassium Chloride Carbon Dioxide BUN Creatinine Glucose POC Glucose 135 H 141 H 138 H Calcium Phosphorus Magnesium Iron TIBC Transferrin Ferritin ALT Alkaline Phosphatase Total Creatine Kinase CK-MB (CK-2) Rel Index Troponin T Albumin LDL Cholesterol Direct PTH Intact Salicylates Acetaminophen Crossmatch 04/22/19 04/22/19 04/22/19 05:12 18:24 23:49 WBC RBC Hgb Hct MCV MCH MCHC RDW Plt Count Lymph % (Auto) [place] % (Auto) Eos % (Auto) Baso % (Auto) Lymph # [place] # Eos # Baso # Seg Neutrophils % Seg Neuts % (Manual) Lymphocytes % (Manual) Eosinophils % (Manual) Seg Neutrophils # Lymphocytes # (Manual) Eosinophils # (Manual) PT INR D-Dimer POC ABG pH POC ABG pCO2 POC ABG pO2 ABG pO2 ABG HCO3 ABG Base Excess ABG Hemoglobin Oxyhemoglobin Sodium Potassium Chloride Carbon Dioxide BUN Creatinine Glucose POC Glucose 141 H 137 H 142 H Calcium Phosphorus Magnesium Iron TIBC Transferrin Ferritin ALT Alkaline Phosphatase Total Creatine Kinase CK-MB (CK-2) Rel Index Troponin T Albumin LDL Cholesterol Direct PTH Intact Salicylates Acetaminophen Crossmatch 04/23/19 04/23/19 04/23/19 05:53 08:13 11:58 WBC RBC Hgb Hct MCV MCH MCHC RDW Plt Count Lymph % (Auto) [place] % (Auto) Eos % (Auto) Baso % (Auto) Lymph # [place] # Eos # Baso # Seg Neutrophils % Seg Neuts % (Manual) Lymphocytes % (Manual) Eosinophils % (Manual) Seg Neutrophils # Lymphocytes # (Manual) Eosinophils # (Manual) PT INR D-Dimer POC ABG pH POC ABG pCO2 POC ABG pO2 ABG pO2 ABG HCO3 ABG Base Excess ABG Hemoglobin Oxyhemoglobin Sodium Potassium Chloride Carbon Dioxide BUN Creatinine Glucose POC Glucose 132 H 154 H 165 H Calcium Phosphorus Magnesium Iron TIBC Transferrin Ferritin ALT Alkaline Phosphatase Total Creatine Kinase CK-MB (CK-2) Rel Index Troponin T Albumin LDL Cholesterol Direct PTH Intact Salicylates Acetaminophen Crossmatch 04/23/19 04/24/19 04/24/19 16:28 00:28 07:00 WBC RBC Hgb Hct MCV MCH MCHC RDW Plt Count Lymph % (Auto) [place] % (Auto) Eos % (Auto) Baso % (Auto) Lymph # [place] # Eos # Baso # Seg Neutrophils % Seg Neuts % (Manual) Lymphocytes % (Manual) Eosinophils % (Manual) Seg Neutrophils # Lymphocytes # (Manual) Eosinophils # (Manual) PT INR D-Dimer POC ABG pH POC ABG pCO2 POC ABG pO2 ABG pO2 ABG HCO3 ABG Base Excess ABG Hemoglobin Oxyhemoglobin Sodium Potassium Chloride Carbon Dioxide BUN Creatinine Glucose POC Glucose 136 H 140 H 141 H Calcium Phosphorus Magnesium Iron TIBC Transferrin Ferritin ALT Alkaline Phosphatase Total Creatine Kinase CK-MB (CK-2) Rel Index Troponin T Albumin LDL Cholesterol Direct PTH Intact Salicylates Acetaminophen Crossmatch 04/24/19 04/24/19 04/25/19 12:38 18:57 00:38 WBC RBC Hgb Hct MCV MCH MCHC RDW Plt Count Lymph % (Auto) [place] % (Auto) Eos % (Auto) Baso % (Auto) Lymph # [place] # Eos # Baso # Seg Neutrophils % Seg Neuts % (Manual) Lymphocytes % (Manual) Eosinophils % (Manual) Seg Neutrophils # Lymphocytes # (Manual) Eosinophils # (Manual) PT INR D-Dimer POC ABG pH POC ABG pCO2 POC ABG pO2 ABG pO2 ABG HCO3 ABG Base Excess ABG Hemoglobin Oxyhemoglobin Sodium Potassium Chloride Carbon Dioxide BUN Creatinine Glucose POC Glucose 152 H 166 H 128 H Calcium Phosphorus Magnesium Iron TIBC Transferrin Ferritin ALT Alkaline Phosphatase Total Creatine Kinase CK-MB (CK-2) Rel Index Troponin T Albumin LDL Cholesterol Direct PTH Intact Salicylates Acetaminophen Crossmatch 04/25/19 04/25/19 04/25/19 05:44 13:43 18:34 WBC RBC Hgb Hct MCV MCH MCHC RDW Plt Count Lymph % (Auto) [place] % (Auto) Eos % (Auto) Baso % (Auto) Lymph # [place] # Eos # Baso # Seg Neutrophils % Seg Neuts % (Manual) Lymphocytes % (Manual) Eosinophils % (Manual) Seg Neutrophils # Lymphocytes # (Manual) Eosinophils # (Manual) PT INR D-Dimer POC ABG pH POC ABG pCO2 POC ABG pO2 ABG pO2 ABG HCO3 ABG Base Excess ABG Hemoglobin Oxyhemoglobin Sodium Potassium Chloride Carbon Dioxide BUN Creatinine Glucose POC Glucose 153 H 186 H 124 H Calcium Phosphorus Magnesium Iron TIBC Transferrin Ferritin ALT Alkaline Phosphatase Total Creatine Kinase CK-MB (CK-2) Rel Index Troponin T Albumin LDL Cholesterol Direct PTH Intact Salicylates Acetaminophen Crossmatch 04/26/19 04/26/19 04/26/19 00:59 05:52 10:12 WBC 11.5 H RBC 2.84 L Hgb 7.4 L Hct 23.3 L MCV 82 L MCH 26 L MCHC RDW 20.3 H Plt Count Lymph % (Auto) 7.5 L [place] % (Auto) 7.5 H Eos % (Auto) 5.3 H Baso % (Auto) Lymph # 0.9 L [place] # 0.9 H Eos # 0.6 H Baso # Seg Neutrophils % 79.2 H Seg Neuts % (Manual) Lymphocytes % (Manual) Eosinophils % (Manual) Seg Neutrophils # 9.1 H Lymphocytes # (Manual) Eosinophils # (Manual) PT INR D-Dimer POC ABG pH POC ABG pCO2 POC ABG pO2 ABG pO2 ABG HCO3 ABG Base Excess ABG Hemoglobin Oxyhemoglobin Sodium Potassium Chloride Carbon Dioxide BUN Creatinine Glucose POC Glucose 163 H 146 H Calcium Phosphorus Magnesium Iron TIBC Transferrin Ferritin ALT Alkaline Phosphatase Total Creatine Kinase CK-MB (CK-2) Rel Index Troponin T Albumin LDL Cholesterol Direct PTH Intact Salicylates Acetaminophen Crossmatch 04/26/19 04/26/19 04/26/19 10:12 12:15 19:00 WBC RBC Hgb Hct MCV MCH MCHC RDW Plt Count Lymph % (Auto) [place] % (Auto) Eos % (Auto) Baso % (Auto) Lymph # [place] # Eos # Baso # Seg Neutrophils % Seg Neuts % (Manual) Lymphocytes % (Manual) Eosinophils % (Manual) Seg Neutrophils # Lymphocytes # (Manual) Eosinophils # (Manual) PT INR D-Dimer POC ABG pH POC ABG pCO2 POC ABG pO2 ABG pO2 ABG HCO3 ABG Base Excess ABG Hemoglobin Oxyhemoglobin Sodium 130 L Potassium Chloride 87.4 L Carbon Dioxide BUN 93 H Creatinine 4.2 H Glucose 140 H POC Glucose 155 H 179 H Calcium Phosphorus Magnesium Iron TIBC Transferrin Ferritin ALT Alkaline Phosphatase Total Creatine Kinase CK-MB (CK-2) Rel Index Troponin T Albumin LDL Cholesterol Direct PTH Intact Salicylates Acetaminophen Crossmatch 04/27/19 04/27/19 04/27/19 00:23 06:34 17:13 WBC RBC Hgb Hct MCV MCH MCHC RDW Plt Count Lymph % (Auto) [place] % (Auto) Eos % (Auto) Baso % (Auto) Lymph # [place] # Eos # Baso # Seg Neutrophils % Seg Neuts % (Manual) Lymphocytes % (Manual) Eosinophils % (Manual) Seg Neutrophils # Lymphocytes # (Manual) Eosinophils # (Manual) PT INR D-Dimer POC ABG pH POC ABG pCO2 POC ABG pO2 ABG pO2 ABG HCO3 ABG Base Excess ABG Hemoglobin Oxyhemoglobin Sodium Potassium Chloride Carbon Dioxide BUN Creatinine Glucose POC Glucose 158 H 140 H 152 H Calcium Phosphorus Magnesium Iron TIBC Transferrin Ferritin ALT Alkaline Phosphatase Total Creatine Kinase CK-MB (CK-2) Rel Index Troponin T Albumin LDL Cholesterol Direct PTH Intact Salicylates Acetaminophen Crossmatch 04/27/19 04/28/19 04/28/19 23:50 05:18 11:37 WBC RBC Hgb Hct MCV MCH MCHC RDW Plt Count Lymph % (Auto) [place] % (Auto) Eos % (Auto) Baso % (Auto) Lymph # [place] # Eos # Baso # Seg Neutrophils % Seg Neuts % (Manual) Lymphocytes % (Manual) Eosinophils % (Manual) Seg Neutrophils # Lymphocytes # (Manual) Eosinophils # (Manual) PT INR D-Dimer POC ABG pH POC ABG pCO2 POC ABG pO2 ABG pO2 ABG HCO3 ABG Base Excess ABG Hemoglobin Oxyhemoglobin Sodium Potassium Chloride Carbon Dioxide BUN Creatinine Glucose POC Glucose 160 H 145 H 177 H Calcium Phosphorus Magnesium Iron TIBC Transferrin Ferritin ALT Alkaline Phosphatase Total Creatine Kinase CK-MB (CK-2) Rel Index Troponin T Albumin LDL Cholesterol Direct PTH Intact Salicylates Acetaminophen Crossmatch 04/28/19 04/28/19 04/29/19 18:31 23:47 05:50 WBC RBC Hgb Hct MCV MCH MCHC RDW Plt Count Lymph % (Auto) [place] % (Auto) Eos % (Auto) Baso % (Auto) Lymph # [place] # Eos # Baso # Seg Neutrophils % Seg Neuts % (Manual) Lymphocytes % (Manual) Eosinophils % (Manual) Seg Neutrophils # Lymphocytes # (Manual) Eosinophils # (Manual) PT INR D-Dimer POC ABG pH POC ABG pCO2 POC ABG pO2 ABG pO2 ABG HCO3 ABG Base Excess ABG Hemoglobin Oxyhemoglobin Sodium Potassium Chloride Carbon Dioxide BUN Creatinine Glucose POC Glucose 153 H 117 H 177 H Calcium Phosphorus Magnesium Iron TIBC Transferrin Ferritin ALT Alkaline Phosphatase Total Creatine Kinase CK-MB (CK-2) Rel Index Troponin T Albumin LDL Cholesterol Direct PTH Intact Salicylates Acetaminophen Crossmatch 04/29/19 04/30/19 04/30/19 17:04 01:02 06:42 WBC RBC Hgb Hct MCV MCH MCHC RDW Plt Count Lymph % (Auto) [place] % (Auto) Eos % (Auto) Baso % (Auto) Lymph # [place] # Eos # Baso # Seg Neutrophils % Seg Neuts % (Manual) Lymphocytes % (Manual) Eosinophils % (Manual) Seg Neutrophils # Lymphocytes # (Manual) Eosinophils # (Manual) PT INR D-Dimer POC ABG pH POC ABG pCO2 POC ABG pO2 ABG pO2 ABG HCO3 ABG Base Excess ABG Hemoglobin Oxyhemoglobin Sodium Potassium Chloride Carbon Dioxide BUN Creatinine Glucose POC Glucose 205 H 143 H 145 H Calcium Phosphorus Magnesium Iron TIBC Transferrin Ferritin ALT Alkaline Phosphatase Total Creatine Kinase CK-MB (CK-2) Rel Index Troponin T Albumin LDL Cholesterol Direct PTH Intact Salicylates Acetaminophen Crossmatch 04/30/19 04/30/19 04/30/19 11:31 18:12 23:38 WBC RBC Hgb Hct MCV MCH MCHC RDW Plt Count Lymph % (Auto) [place] % (Auto) Eos % (Auto) Baso % (Auto) Lymph # [place] # Eos # Baso # Seg Neutrophils % Seg Neuts % (Manual) Lymphocytes % (Manual) Eosinophils % (Manual) Seg Neutrophils # Lymphocytes # (Manual) Eosinophils # (Manual) PT INR D-Dimer POC ABG pH POC ABG pCO2 POC ABG pO2 ABG pO2 ABG HCO3 ABG Base Excess ABG Hemoglobin Oxyhemoglobin Sodium Potassium Chloride Carbon Dioxide BUN Creatinine Glucose POC Glucose 162 H 117 H 139 H Calcium Phosphorus Magnesium Iron TIBC Transferrin Ferritin ALT Alkaline Phosphatase Total Creatine Kinase CK-MB (CK-2) Rel Index Troponin T Albumin LDL Cholesterol Direct PTH Intact Salicylates Acetaminophen Crossmatch 05/01/19 05/01/19 05/02/19 06:06 23:41 05:59 WBC RBC Hgb Hct MCV MCH MCHC RDW Plt Count Lymph % (Auto) [place] % (Auto) Eos % (Auto) Baso % (Auto) Lymph # [place] # Eos # Baso # Seg Neutrophils % Seg Neuts % (Manual) Lymphocytes % (Manual) Eosinophils % (Manual) Seg Neutrophils # Lymphocytes # (Manual) Eosinophils # (Manual) PT INR D-Dimer POC ABG pH POC ABG pCO2 POC ABG pO2 ABG pO2 ABG HCO3 ABG Base Excess ABG Hemoglobin Oxyhemoglobin Sodium Potassium Chloride Carbon Dioxide BUN Creatinine Glucose POC Glucose 150 H 140 H 130 H Calcium Phosphorus Magnesium Iron TIBC Transferrin Ferritin ALT Alkaline Phosphatase Total Creatine Kinase CK-MB (CK-2) Rel Index Troponin T Albumin LDL Cholesterol Direct PTH Intact Salicylates Acetaminophen Crossmatch 05/02/19 05/02/19 05/03/19 11:55 18:10 00:15 WBC RBC Hgb Hct MCV MCH MCHC RDW Plt Count Lymph % (Auto) [place] % (Auto) Eos % (Auto) Baso % (Auto) Lymph # [place] # Eos # Baso # Seg Neutrophils % Seg Neuts % (Manual) Lymphocytes % (Manual) Eosinophils % (Manual) Seg Neutrophils # Lymphocytes # (Manual) Eosinophils # (Manual) PT INR D-Dimer POC ABG pH POC ABG pCO2 POC ABG pO2 ABG pO2 ABG HCO3 ABG Base Excess ABG Hemoglobin Oxyhemoglobin Sodium Potassium Chloride Carbon Dioxide BUN Creatinine Glucose POC Glucose 146 H 141 H 145 H Calcium Phosphorus Magnesium Iron TIBC Transferrin Ferritin ALT Alkaline Phosphatase Total Creatine Kinase CK-MB (CK-2) Rel Index Troponin T Albumin LDL Cholesterol Direct PTH Intact Salicylates Acetaminophen Crossmatch 05/03/19 05/03/19 05/03/19 05:49 05:49 06:01 WBC RBC 2.84 L Hgb 7.2 L Hct 22.9 L MCV 81 L MCH 26 L MCHC RDW 20.6 H Plt Count 456 H Lymph % (Auto) 11.8 L [place] % (Auto) Eos % (Auto) 10.6 H Baso % (Auto) Lymph # 1.1 L [place] # Eos # 1.0 H Baso # Seg Neutrophils % 70.4 H Seg Neuts % (Manual) Lymphocytes % (Manual) Eosinophils % (Manual) Seg Neutrophils # Lymphocytes # (Manual) Eosinophils # (Manual) PT INR D-Dimer POC ABG pH POC ABG pCO2 POC ABG pO2 ABG pO2 ABG HCO3 ABG Base Excess ABG Hemoglobin Oxyhemoglobin Sodium Potassium Chloride 94.8 L Carbon Dioxide BUN 66 H Creatinine 3.6 H Glucose 129 H POC Glucose 135 H Calcium Phosphorus Magnesium Iron TIBC Transferrin Ferritin ALT Alkaline Phosphatase Total Creatine Kinase CK-MB (CK-2) Rel Index Troponin T Albumin LDL Cholesterol Direct PTH Intact Salicylates Acetaminophen Crossmatch 05/03/19 05/03/19 05/04/19 11:04 18:40 00:06 WBC RBC Hgb Hct MCV MCH MCHC RDW Plt Count Lymph % (Auto) [place] % (Auto) Eos % (Auto) Baso % (Auto) Lymph # [place] # Eos # Baso # Seg Neutrophils % Seg Neuts % (Manual) Lymphocytes % (Manual) Eosinophils % (Manual) Seg Neutrophils # Lymphocytes # (Manual) Eosinophils # (Manual) PT INR D-Dimer POC ABG pH POC ABG pCO2 POC ABG pO2 ABG pO2 ABG HCO3 ABG Base Excess ABG Hemoglobin Oxyhemoglobin Sodium Potassium Chloride Carbon Dioxide BUN Creatinine Glucose POC Glucose 191 H 167 H 137 H Calcium Phosphorus Magnesium Iron TIBC Transferrin Ferritin ALT Alkaline Phosphatase Total Creatine Kinase CK-MB (CK-2) Rel Index Troponin T Albumin LDL Cholesterol Direct PTH Intact Salicylates Acetaminophen Crossmatch 05/04/19 05/04/19 05/04/19 06:44 07:30 07:30 WBC 15.8 H RBC 2.74 L Hgb 6.7 L Hct 22.2 L MCV 81 L MCH 24 L MCHC 30 L RDW 20.4 H Plt Count 450 H Lymph % (Auto) 5.1 L [place] % (Auto) Eos % (Auto) Baso % (Auto) Lymph # 0.8 L [place] # Eos # 0.6 H Baso # Seg Neutrophils % 86.3 H Seg Neuts % (Manual) Lymphocytes % (Manual) Eosinophils % (Manual) Seg Neutrophils # 13.6 H Lymphocytes # (Manual) Eosinophils # (Manual) PT INR D-Dimer POC ABG pH POC ABG pCO2 POC ABG pO2 ABG pO2 ABG HCO3 ABG Base Excess ABG Hemoglobin Oxyhemoglobin Sodium Potassium Chloride 95.2 L Carbon Dioxide BUN 92 H Creatinine 4.8 H Glucose 139 H POC Glucose 153 H Calcium Phosphorus Magnesium Iron TIBC Transferrin Ferritin ALT Alkaline Phosphatase Total Creatine Kinase CK-MB (CK-2) Rel Index Troponin T Albumin LDL Cholesterol Direct PTH Intact Salicylates Acetaminophen Crossmatch 05/04/19 05/04/19 05/05/19 12:55 16:31 01:02 WBC RBC Hgb Hct MCV MCH MCHC RDW Plt Count Lymph % (Auto) [place] % (Auto) Eos % (Auto) Baso % (Auto) Lymph # [place] # Eos # Baso # Seg Neutrophils % Seg Neuts % (Manual) Lymphocytes % (Manual) Eosinophils % (Manual) Seg Neutrophils # Lymphocytes # (Manual) Eosinophils # (Manual) PT INR D-Dimer POC ABG pH POC ABG pCO2 POC ABG pO2 ABG pO2 ABG HCO3 ABG Base Excess ABG Hemoglobin Oxyhemoglobin Sodium Potassium Chloride Carbon Dioxide BUN Creatinine Glucose POC Glucose 169 H 171 H Calcium Phosphorus Magnesium Iron TIBC Transferrin Ferritin ALT Alkaline Phosphatase Total Creatine Kinase CK-MB (CK-2) Rel Index Troponin T Albumin LDL Cholesterol Direct PTH Intact Salicylates Acetaminophen Crossmatch See Detail 05/05/19 05/05/19 05/05/19 05:26 05:36 11:48 WBC 12.6 H RBC 2.73 L Hgb 6.9 L Hct 22.3 L MCV 82 L MCH 25 L MCHC 31 L RDW 21.0 H Plt Count Lymph % (Auto) 8.9 L [place] % (Auto) Eos % (Auto) Baso % (Auto) Lymph # 1.1 L [place] # 0.9 H Eos # Baso # Seg Neutrophils % 80.7 H Seg Neuts % (Manual) Lymphocytes % (Manual) Eosinophils % (Manual) Seg Neutrophils # 10.2 H Lymphocytes # (Manual) Eosinophils # (Manual) PT INR D-Dimer POC ABG pH POC ABG pCO2 POC ABG pO2 ABG pO2 ABG HCO3 ABG Base Excess ABG Hemoglobin Oxyhemoglobin Sodium Potassium Chloride Carbon Dioxide BUN Creatinine Glucose POC Glucose 153 H 173 H Calcium Phosphorus Magnesium Iron TIBC Transferrin Ferritin ALT Alkaline Phosphatase Total Creatine Kinase CK-MB (CK-2) Rel Index Troponin T Albumin LDL Cholesterol Direct PTH Intact Salicylates Acetaminophen Crossmatch 05/05/19 05/06/19 05/06/19 16:42 02:24 06:12 WBC RBC Hgb Hct MCV MCH MCHC RDW Plt Count Lymph % (Auto) [place] % (Auto) Eos % (Auto) Baso % (Auto) Lymph # [place] # Eos # Baso # Seg Neutrophils % Seg Neuts % (Manual) Lymphocytes % (Manual) Eosinophils % (Manual) Seg Neutrophils # Lymphocytes # (Manual) Eosinophils # (Manual) PT INR D-Dimer POC ABG pH POC ABG pCO2 POC ABG pO2 ABG pO2 ABG HCO3 ABG Base Excess ABG Hemoglobin Oxyhemoglobin Sodium Potassium Chloride Carbon Dioxide BUN Creatinine Glucose POC Glucose 126 H 138 H 151 H Calcium Phosphorus Magnesium Iron TIBC Transferrin Ferritin ALT Alkaline Phosphatase Total Creatine Kinase CK-MB (CK-2) Rel Index Troponin T Albumin LDL Cholesterol Direct PTH Intact Salicylates Acetaminophen Crossmatch 05/06/19 05/06/19 05/06/19 08:15 16:48 23:16 WBC 11.8 H RBC 2.72 L Hgb 6.7 L Hct 21.7 L MCV 80 L MCH 25 L MCHC 31 L RDW 20.9 H Plt Count Lymph % (Auto) [place] % (Auto) Eos % (Auto) Baso % (Auto) Lymph # [place] # Eos # Baso # Seg Neutrophils % Seg Neuts % (Manual) Lymphocytes % (Manual) Eosinophils % (Manual) Seg Neutrophils # Lymphocytes # (Manual) Eosinophils # (Manual) PT INR D-Dimer POC ABG pH POC ABG pCO2 POC ABG pO2 ABG pO2 ABG HCO3 ABG Base Excess ABG Hemoglobin Oxyhemoglobin Sodium Potassium Chloride Carbon Dioxide BUN Creatinine Glucose POC Glucose 153 H 143 H Calcium Phosphorus Magnesium Iron TIBC Transferrin Ferritin ALT Alkaline Phosphatase Total Creatine Kinase CK-MB (CK-2) Rel Index Troponin T Albumin LDL Cholesterol Direct PTH Intact Salicylates Acetaminophen Crossmatch 05/07/19 05/07/19 05/07/19 06:00 06:30 12:33 WBC RBC 3.53 L Hgb 9.1 L Hct 28.6 L D MCV 81 L MCH 26 L MCHC RDW 19.1 H Plt Count Lymph % (Auto) 9.6 L [place] % (Auto) Eos % (Auto) 4.8 H Baso % (Auto) Lymph # 1.1 L [place] # Eos # 0.5 H Baso # Seg Neutrophils % 77.8 H Seg Neuts % (Manual) Lymphocytes % (Manual) Eosinophils % (Manual) Seg Neutrophils # 8.6 H Lymphocytes # (Manual) Eosinophils # (Manual) PT INR D-Dimer POC ABG pH POC ABG pCO2 POC ABG pO2 ABG pO2 ABG HCO3 ABG Base Excess ABG Hemoglobin Oxyhemoglobin Sodium Potassium Chloride Carbon Dioxide BUN Creatinine Glucose POC Glucose 122 H 140 H Calcium Phosphorus Magnesium Iron TIBC Transferrin Ferritin ALT Alkaline Phosphatase Total Creatine Kinase CK-MB (CK-2) Rel Index Troponin T Albumin LDL Cholesterol Direct PTH Intact Salicylates Acetaminophen Crossmatch 05/07/19 05/07/19 05/08/19 16:41 23:55 05:10 WBC 11.6 H RBC 3.54 L Hgb 9.1 L Hct 29.1 L MCV 82 L MCH 26 L MCHC 31 L RDW 19.6 H Plt Count Lymph % (Auto) 6.6 L [place] % (Auto) Eos % (Auto) Baso % (Auto) 1.9 H Lymph # 0.8 L [place] # Eos # Baso # 0.2 H Seg Neutrophils % 82.6 H Seg Neuts % (Manual) Lymphocytes % (Manual) Eosinophils % (Manual) Seg Neutrophils # 9.6 H Lymphocytes # (Manual) Eosinophils # (Manual) PT INR D-Dimer POC ABG pH POC ABG pCO2 POC ABG pO2 ABG pO2 ABG HCO3 ABG Base Excess ABG Hemoglobin Oxyhemoglobin Sodium Potassium Chloride Carbon Dioxide BUN Creatinine Glucose POC Glucose 143 H 153 H Calcium Phosphorus Magnesium Iron TIBC Transferrin Ferritin ALT Alkaline Phosphatase Total Creatine Kinase CK-MB (CK-2) Rel Index Troponin T Albumin LDL Cholesterol Direct PTH Intact Salicylates Acetaminophen Crossmatch 05/08/19 05/08/19 05/09/19 06:09 16:55 03:27 WBC RBC Hgb Hct MCV MCH MCHC RDW Plt Count Lymph % (Auto) [place] % (Auto) Eos % (Auto) Baso % (Auto) Lymph # [place] # Eos # Baso # Seg Neutrophils % Seg Neuts % (Manual) Lymphocytes % (Manual) Eosinophils % (Manual) Seg Neutrophils # Lymphocytes # (Manual) Eosinophils # (Manual) PT INR D-Dimer POC ABG pH POC ABG pCO2 POC ABG pO2 ABG pO2 ABG HCO3 ABG Base Excess ABG Hemoglobin Oxyhemoglobin Sodium Potassium Chloride Carbon Dioxide BUN Creatinine Glucose POC Glucose 204 H 196 H 175 H Calcium Phosphorus Magnesium Iron TIBC Transferrin Ferritin ALT Alkaline Phosphatase Total Creatine Kinase CK-MB (CK-2) Rel Index Troponin T Albumin LDL Cholesterol Direct PTH Intact Salicylates Acetaminophen Crossmatch 05/09/19 05/09/19 05/09/19 06:00 11:00 12:41 WBC 12.0 H RBC Hgb 9.7 L Hct 30.2 L MCV 83 L MCH 26 L MCHC RDW 20.1 H Plt Count Lymph % (Auto) 7.4 L [place] % (Auto) 7.6 H Eos % (Auto) Baso % (Auto) Lymph # 0.9 L [place] # 0.9 H Eos # Baso # Seg Neutrophils % 80.7 H Seg Neuts % (Manual) Lymphocytes % (Manual) Eosinophils % (Manual) Seg Neutrophils # 9.7 H Lymphocytes # (Manual) Eosinophils # (Manual) PT INR D-Dimer POC ABG pH POC ABG pCO2 POC ABG pO2 ABG pO2 ABG HCO3 ABG Base Excess ABG Hemoglobin Oxyhemoglobin Sodium Potassium Chloride Carbon Dioxide BUN Creatinine Glucose POC Glucose 172 H 168 H Calcium Phosphorus Magnesium Iron TIBC Transferrin Ferritin ALT Alkaline Phosphatase Total Creatine Kinase CK-MB (CK-2) Rel Index Troponin T Albumin LDL Cholesterol Direct PTH Intact Salicylates Acetaminophen Crossmatch 05/09/19 05/10/19 05/10/19 17:45 01:26 06:07 WBC RBC Hgb Hct MCV MCH MCHC RDW Plt Count Lymph % (Auto) [place] % (Auto) Eos % (Auto) Baso % (Auto) Lymph # [place] # Eos # Baso # Seg Neutrophils % Seg Neuts % (Manual) Lymphocytes % (Manual) Eosinophils % (Manual) Seg Neutrophils # Lymphocytes # (Manual) Eosinophils # (Manual) PT INR D-Dimer POC ABG pH POC ABG pCO2 POC ABG pO2 ABG pO2 ABG HCO3 ABG Base Excess ABG Hemoglobin Oxyhemoglobin Sodium Potassium Chloride Carbon Dioxide BUN Creatinine Glucose POC Glucose 167 H 174 H 179 H Calcium Phosphorus Magnesium Iron TIBC Transferrin Ferritin ALT Alkaline Phosphatase Total Creatine Kinase CK-MB (CK-2) Rel Index Troponin T Albumin LDL Cholesterol Direct PTH Intact Salicylates Acetaminophen Crossmatch 05/10/19 05/10/19 05/10/19 06:45 12:31 17:18 WBC RBC Hgb Hct MCV MCH MCHC RDW Plt Count Lymph % (Auto) [place] % (Auto) Eos % (Auto) Baso % (Auto) Lymph # [place] # Eos # Baso # Seg Neutrophils % Seg Neuts % (Manual) Lymphocytes % (Manual) Eosinophils % (Manual) Seg Neutrophils # Lymphocytes # (Manual) Eosinophils # (Manual) PT INR D-Dimer POC ABG pH POC ABG pCO2 POC ABG pO2 ABG pO2 ABG HCO3 ABG Base Excess ABG Hemoglobin Oxyhemoglobin Sodium 134 L Potassium Chloride 90.2 L Carbon Dioxide BUN 82 H Creatinine 4.1 H Glucose 195 H POC Glucose 201 H 197 H Calcium Phosphorus Magnesium Iron TIBC Transferrin Ferritin ALT Alkaline Phosphatase Total Creatine Kinase CK-MB (CK-2) Rel Index Troponin T Albumin LDL Cholesterol Direct PTH Intact Salicylates Acetaminophen Crossmatch 05/11/19 05/11/19 05/11/19 00:20 06:30 17:38 WBC RBC Hgb Hct MCV MCH MCHC RDW Plt Count Lymph % (Auto) [place] % (Auto) Eos % (Auto) Baso % (Auto) Lymph # [place] # Eos # Baso # Seg Neutrophils % Seg Neuts % (Manual) Lymphocytes % (Manual) Eosinophils % (Manual) Seg Neutrophils # Lymphocytes # (Manual) Eosinophils # (Manual) PT INR D-Dimer POC ABG pH POC ABG pCO2 POC ABG pO2 ABG pO2 ABG HCO3 ABG Base Excess ABG Hemoglobin Oxyhemoglobin Sodium Potassium Chloride Carbon Dioxide BUN Creatinine Glucose POC Glucose 131 H 148 H 198 H Calcium Phosphorus Magnesium Iron TIBC Transferrin Ferritin ALT Alkaline Phosphatase Total Creatine Kinase CK-MB (CK-2) Rel Index Troponin T Albumin LDL Cholesterol Direct PTH Intact Salicylates Acetaminophen Crossmatch 05/12/19 05/12/19 05/12/19 00:44 06:13 07:15 WBC RBC 3.32 L Hgb 8.7 L Hct 27.8 L MCV MCH 26 L MCHC 31 L RDW 19.8 H Plt Count Lymph % (Auto) 6.9 L [place] % (Auto) Eos % (Auto) 6.5 H Baso % (Auto) Lymph # 0.7 L [place] # Eos # 0.6 H Baso # Seg Neutrophils % 78.6 H Seg Neuts % (Manual) Lymphocytes % (Manual) Eosinophils % (Manual) Seg Neutrophils # 7.8 H Lymphocytes # (Manual) Eosinophils # (Manual) PT INR D-Dimer POC ABG pH POC ABG pCO2 POC ABG pO2 ABG pO2 ABG HCO3 ABG Base Excess ABG Hemoglobin Oxyhemoglobin Sodium Potassium Chloride Carbon Dioxide BUN Creatinine Glucose POC Glucose 170 H 133 H Calcium Phosphorus Magnesium Iron TIBC Transferrin Ferritin ALT Alkaline Phosphatase Total Creatine Kinase CK-MB (CK-2) Rel Index Troponin T Albumin LDL Cholesterol Direct PTH Intact Salicylates Acetaminophen Crossmatch 05/12/19 05/12/19 05/12/19 07:15 11:17 17:37 WBC RBC Hgb Hct MCV MCH MCHC RDW Plt Count Lymph % (Auto) [place] % (Auto) Eos % (Auto) Baso % (Auto) Lymph # [place] # Eos # Baso # Seg Neutrophils % Seg Neuts % (Manual) Lymphocytes % (Manual) Eosinophils % (Manual) Seg Neutrophils # Lymphocytes # (Manual) Eosinophils # (Manual) PT INR D-Dimer POC ABG pH POC ABG pCO2 POC ABG pO2 ABG pO2 ABG HCO3 ABG Base Excess ABG Hemoglobin Oxyhemoglobin Sodium 135 L Potassium Chloride 94.2 L Carbon Dioxide BUN 59 H Creatinine 3.4 H Glucose 134 H POC Glucose 132 H 165 H Calcium Phosphorus Magnesium Iron TIBC Transferrin Ferritin ALT Alkaline Phosphatase Total Creatine Kinase CK-MB (CK-2) Rel Index Troponin T Albumin LDL Cholesterol Direct PTH Intact Salicylates Acetaminophen Crossmatch 05/13/19 05/13/19 05/13/19 00:15 05:44 16:00 WBC RBC Hgb Hct MCV MCH MCHC RDW Plt Count Lymph % (Auto) [place] % (Auto) Eos % (Auto) Baso % (Auto) Lymph # [place] # Eos # Baso # Seg Neutrophils % Seg Neuts % (Manual) Lymphocytes % (Manual) Eosinophils % (Manual) Seg Neutrophils # Lymphocytes # (Manual) Eosinophils # (Manual) PT INR D-Dimer POC ABG pH POC ABG pCO2 POC ABG pO2 ABG pO2 ABG HCO3 ABG Base Excess ABG Hemoglobin Oxyhemoglobin Sodium Potassium Chloride Carbon Dioxide BUN Creatinine Glucose POC Glucose 144 H 133 H 221 H Calcium Phosphorus Magnesium Iron TIBC Transferrin Ferritin ALT Alkaline Phosphatase Total Creatine Kinase CK-MB (CK-2) Rel Index Troponin T Albumin LDL Cholesterol Direct PTH Intact Salicylates Acetaminophen Crossmatch 05/14/19 05/14/19 05/14/19 06:44 11:56 16:42 WBC RBC Hgb Hct MCV MCH MCHC RDW Plt Count Lymph % (Auto) [place] % (Auto) Eos % (Auto) Baso % (Auto) Lymph # [place] # Eos # Baso # Seg Neutrophils % Seg Neuts % (Manual) Lymphocytes % (Manual) Eosinophils % (Manual) Seg Neutrophils # Lymphocytes # (Manual) Eosinophils # (Manual) PT INR D-Dimer POC ABG pH POC ABG pCO2 POC ABG pO2 ABG pO2 ABG HCO3 ABG Base Excess ABG Hemoglobin Oxyhemoglobin Sodium Potassium Chloride Carbon Dioxide BUN Creatinine Glucose POC Glucose 187 H 141 H 183 H Calcium Phosphorus Magnesium Iron TIBC Transferrin Ferritin ALT Alkaline Phosphatase Total Creatine Kinase CK-MB (CK-2) Rel Index Troponin T Albumin LDL Cholesterol Direct PTH Intact Salicylates Acetaminophen Crossmatch 05/15/19 05/15/19 05/15/19 00:11 05:55 18:46 WBC RBC Hgb Hct MCV MCH MCHC RDW Plt Count Lymph % (Auto) [place] % (Auto) Eos % (Auto) Baso % (Auto) Lymph # [place] # Eos # Baso # Seg Neutrophils % Seg Neuts % (Manual) Lymphocytes % (Manual) Eosinophils % (Manual) Seg Neutrophils # Lymphocytes # (Manual) Eosinophils # (Manual) PT INR D-Dimer POC ABG pH POC ABG pCO2 POC ABG pO2 ABG pO2 ABG HCO3 ABG Base Excess ABG Hemoglobin Oxyhemoglobin Sodium Potassium Chloride Carbon Dioxide BUN Creatinine Glucose POC Glucose 169 H 119 H 173 H Calcium Phosphorus Magnesium Iron TIBC Transferrin Ferritin ALT Alkaline Phosphatase Total Creatine Kinase CK-MB (CK-2) Rel Index Troponin T Albumin LDL Cholesterol Direct PTH Intact Salicylates Acetaminophen Crossmatch 05/16/19 05/16/19 05/16/19 00:18 06:17 12:47 WBC RBC Hgb Hct MCV MCH MCHC RDW Plt Count Lymph % (Auto) [place] % (Auto) Eos % (Auto) Baso % (Auto) Lymph # [place] # Eos # Baso # Seg Neutrophils % Seg Neuts % (Manual) Lymphocytes % (Manual) Eosinophils % (Manual) Seg Neutrophils # Lymphocytes # (Manual) Eosinophils # (Manual) PT INR D-Dimer POC ABG pH POC ABG pCO2 POC ABG pO2 ABG pO2 ABG HCO3 ABG Base Excess ABG Hemoglobin Oxyhemoglobin Sodium Potassium Chloride Carbon Dioxide BUN Creatinine Glucose POC Glucose 201 H 149 H 207 H Calcium Phosphorus Magnesium Iron TIBC Transferrin Ferritin ALT Alkaline Phosphatase Total Creatine Kinase CK-MB (CK-2) Rel Index Troponin T Albumin LDL Cholesterol Direct PTH Intact Salicylates Acetaminophen Crossmatch 05/16/19 05/17/19 05/17/19 17:48 00:01 06:26 WBC RBC Hgb Hct MCV MCH MCHC RDW Plt Count Lymph % (Auto) [place] % (Auto) Eos % (Auto) Baso % (Auto) Lymph # [place] # Eos # Baso # Seg Neutrophils % Seg Neuts % (Manual) Lymphocytes % (Manual) Eosinophils % (Manual) Seg Neutrophils # Lymphocytes # (Manual) Eosinophils # (Manual) PT INR D-Dimer POC ABG pH POC ABG pCO2 POC ABG pO2 ABG pO2 ABG HCO3 ABG Base Excess ABG Hemoglobin Oxyhemoglobin Sodium Potassium Chloride Carbon Dioxide BUN Creatinine Glucose POC Glucose 183 H 176 H 177 H Calcium Phosphorus Magnesium Iron TIBC Transferrin Ferritin ALT Alkaline Phosphatase Total Creatine Kinase CK-MB (CK-2) Rel Index Troponin T Albumin LDL Cholesterol Direct PTH Intact Salicylates Acetaminophen Crossmatch 05/17/19 05/17/19 05/18/19 12:19 17:45 00:30 WBC RBC Hgb Hct MCV MCH MCHC RDW Plt Count Lymph % (Auto) [place] % (Auto) Eos % (Auto) Baso % (Auto) Lymph # [place] # Eos # Baso # Seg Neutrophils % Seg Neuts % (Manual) Lymphocytes % (Manual) Eosinophils % (Manual) Seg Neutrophils # Lymphocytes # (Manual) Eosinophils # (Manual) PT INR D-Dimer POC ABG pH POC ABG pCO2 POC ABG pO2 ABG pO2 ABG HCO3 ABG Base Excess ABG Hemoglobin Oxyhemoglobin Sodium Potassium Chloride Carbon Dioxide BUN Creatinine Glucose POC Glucose 174 H 171 H 181 H Calcium Phosphorus Magnesium Iron TIBC Transferrin Ferritin ALT Alkaline Phosphatase Total Creatine Kinase CK-MB (CK-2) Rel Index Troponin T Albumin LDL Cholesterol Direct PTH Intact Salicylates Acetaminophen Crossmatch 05/18/19 05/18/19 05/19/19 06:18 16:53 00:19 WBC RBC Hgb Hct MCV MCH MCHC RDW Plt Count Lymph % (Auto) [place] % (Auto) Eos % (Auto) Baso % (Auto) Lymph # [place] # Eos # Baso # Seg Neutrophils % Seg Neuts % (Manual) Lymphocytes % (Manual) Eosinophils % (Manual) Seg Neutrophils # Lymphocytes # (Manual) Eosinophils # (Manual) PT INR D-Dimer POC ABG pH POC ABG pCO2 POC ABG pO2 ABG pO2 ABG HCO3 ABG Base Excess ABG Hemoglobin Oxyhemoglobin Sodium Potassium Chloride Carbon Dioxide BUN Creatinine Glucose POC Glucose 165 H 166 H 207 H Calcium Phosphorus Magnesium Iron TIBC Transferrin Ferritin ALT Alkaline Phosphatase Total Creatine Kinase CK-MB (CK-2) Rel Index Troponin T Albumin LDL Cholesterol Direct PTH Intact Salicylates Acetaminophen Crossmatch 05/19/19 05/19/19 05/19/19 01:00 01:00 05:15 WBC 11.6 H RBC 3.12 L Hgb 7.9 L Hct 25.9 L MCV 83 L MCH 25 L MCHC 31 L RDW 21.1 H Plt Count Lymph % (Auto) [place] % (Auto) Eos % (Auto) Baso % (Auto) Lymph # [place] # Eos # Baso # Seg Neutrophils % Seg Neuts % (Manual) Lymphocytes % (Manual) Eosinophils % (Manual) Seg Neutrophils # Lymphocytes # (Manual) Eosinophils # (Manual) PT INR D-Dimer POC ABG pH POC ABG pCO2 POC ABG pO2 ABG pO2 ABG HCO3 ABG Base Excess ABG Hemoglobin Oxyhemoglobin Sodium 135 L Potassium Chloride 93.6 L Carbon Dioxide BUN 64 H Creatinine 2.8 H Glucose 194 H POC Glucose 176 H Calcium Phosphorus Magnesium Iron TIBC Transferrin Ferritin ALT Alkaline Phosphatase Total Creatine Kinase CK-MB (CK-2) Rel Index Troponin T Albumin LDL Cholesterol Direct PTH Intact Salicylates Acetaminophen Crossmatch 05/19/19 05/19/19 05/20/19 11:21 18:48 00:01 WBC RBC Hgb Hct MCV MCH MCHC RDW Plt Count Lymph % (Auto) [place] % (Auto) Eos % (Auto) Baso % (Auto) Lymph # [place] # Eos # Baso # Seg Neutrophils % Seg Neuts % (Manual) Lymphocytes % (Manual) Eosinophils % (Manual) Seg Neutrophils # Lymphocytes # (Manual) Eosinophils # (Manual) PT INR D-Dimer POC ABG pH POC ABG pCO2 POC ABG pO2 ABG pO2 ABG HCO3 ABG Base Excess ABG Hemoglobin Oxyhemoglobin Sodium Potassium Chloride Carbon Dioxide BUN Creatinine Glucose POC Glucose 162 H 140 H 200 H Calcium Phosphorus Magnesium Iron TIBC Transferrin Ferritin ALT Alkaline Phosphatase Total Creatine Kinase CK-MB (CK-2) Rel Index Troponin T Albumin LDL Cholesterol Direct PTH Intact Salicylates Acetaminophen Crossmatch 05/20/19 05/20/19 05/21/19 05:58 17:50 00:43 WBC RBC Hgb Hct MCV MCH MCHC RDW Plt Count Lymph % (Auto) [place] % (Auto) Eos % (Auto) Baso % (Auto) Lymph # [place] # Eos # Baso # Seg Neutrophils % Seg Neuts % (Manual) Lymphocytes % (Manual) Eosinophils % (Manual) Seg Neutrophils # Lymphocytes # (Manual) Eosinophils # (Manual) PT INR D-Dimer POC ABG pH POC ABG pCO2 POC ABG pO2 ABG pO2 ABG HCO3 ABG Base Excess ABG Hemoglobin Oxyhemoglobin Sodium Potassium Chloride Carbon Dioxide BUN Creatinine Glucose POC Glucose 132 H 154 H 165 H Calcium Phosphorus Magnesium Iron TIBC Transferrin Ferritin ALT Alkaline Phosphatase Total Creatine Kinase CK-MB (CK-2) Rel Index Troponin T Albumin LDL Cholesterol Direct PTH Intact Salicylates Acetaminophen Crossmatch 05/21/19 05/21/19 05/21/19 06:06 11:15 17:04 WBC RBC Hgb Hct MCV MCH MCHC RDW Plt Count Lymph % (Auto) [place] % (Auto) Eos % (Auto) Baso % (Auto) Lymph # [place] # Eos # Baso # Seg Neutrophils % Seg Neuts % (Manual) Lymphocytes % (Manual) Eosinophils % (Manual) Seg Neutrophils # Lymphocytes # (Manual) Eosinophils # (Manual) PT INR D-Dimer POC ABG pH POC ABG pCO2 POC ABG pO2 ABG pO2 ABG HCO3 ABG Base Excess ABG Hemoglobin Oxyhemoglobin Sodium Potassium Chloride Carbon Dioxide BUN Creatinine Glucose POC Glucose 178 H 218 H 135 H Calcium Phosphorus Magnesium Iron TIBC Transferrin Ferritin ALT Alkaline Phosphatase Total Creatine Kinase CK-MB (CK-2) Rel Index Troponin T Albumin LDL Cholesterol Direct PTH Intact Salicylates Acetaminophen Crossmatch 05/21/19 05/22/19 05/22/19 23:25 06:09 18:32 WBC RBC Hgb Hct MCV MCH MCHC RDW Plt Count Lymph % (Auto) [place] % (Auto) Eos % (Auto) Baso % (Auto) Lymph # [place] # Eos # Baso # Seg Neutrophils % Seg Neuts % (Manual) Lymphocytes % (Manual) Eosinophils % (Manual) Seg Neutrophils # Lymphocytes # (Manual) Eosinophils # (Manual) PT INR D-Dimer POC ABG pH POC ABG pCO2 POC ABG pO2 ABG pO2 ABG HCO3 ABG Base Excess ABG Hemoglobin Oxyhemoglobin Sodium Potassium Chloride Carbon Dioxide BUN Creatinine Glucose POC Glucose 221 H 140 H 216 H Calcium Phosphorus Magnesium Iron TIBC Transferrin Ferritin ALT Alkaline Phosphatase Total Creatine Kinase CK-MB (CK-2) Rel Index Troponin T Albumin LDL Cholesterol Direct PTH Intact Salicylates Acetaminophen Crossmatch 05/22/19 05/23/19 05/23/19 23:56 05:23 12:46 WBC RBC Hgb Hct MCV MCH MCHC RDW Plt Count Lymph % (Auto) [place] % (Auto) Eos % (Auto) Baso % (Auto) Lymph # [place] # Eos # Baso # Seg Neutrophils % Seg Neuts % (Manual) Lymphocytes % (Manual) Eosinophils % (Manual) Seg Neutrophils # Lymphocytes # (Manual) Eosinophils # (Manual) PT INR D-Dimer POC ABG pH POC ABG pCO2 POC ABG pO2 ABG pO2 ABG HCO3 ABG Base Excess ABG Hemoglobin Oxyhemoglobin Sodium Potassium Chloride Carbon Dioxide BUN Creatinine Glucose POC Glucose 177 H 188 H 165 H Calcium Phosphorus Magnesium Iron TIBC Transferrin Ferritin ALT Alkaline Phosphatase Total Creatine Kinase CK-MB (CK-2) Rel Index Troponin T Albumin LDL Cholesterol Direct PTH Intact Salicylates Acetaminophen Crossmatch 05/23/19 05/24/19 05/24/19 17:36 00:06 06:51 WBC RBC Hgb Hct MCV MCH MCHC RDW Plt Count Lymph % (Auto) [place] % (Auto) Eos % (Auto) Baso % (Auto) Lymph # [place] # Eos # Baso # Seg Neutrophils % Seg Neuts % (Manual) Lymphocytes % (Manual) Eosinophils % (Manual) Seg Neutrophils # Lymphocytes # (Manual) Eosinophils # (Manual) PT INR D-Dimer POC ABG pH POC ABG pCO2 POC ABG pO2 ABG pO2 ABG HCO3 ABG Base Excess ABG Hemoglobin Oxyhemoglobin Sodium Potassium Chloride Carbon Dioxide BUN Creatinine Glucose POC Glucose 204 H 155 H 169 H Calcium Phosphorus Magnesium Iron TIBC Transferrin Ferritin ALT Alkaline Phosphatase Total Creatine Kinase CK-MB (CK-2) Rel Index Troponin T Albumin LDL Cholesterol Direct PTH Intact Salicylates Acetaminophen Crossmatch 05/24/19 05/24/19 05/25/19 11:33 17:47 00:03 WBC RBC Hgb Hct MCV MCH MCHC RDW Plt Count Lymph % (Auto) [place] % (Auto) Eos % (Auto) Baso % (Auto) Lymph # [place] # Eos # Baso # Seg Neutrophils % Seg Neuts % (Manual) Lymphocytes % (Manual) Eosinophils % (Manual) Seg Neutrophils # Lymphocytes # (Manual) Eosinophils # (Manual) PT INR D-Dimer POC ABG pH POC ABG pCO2 POC ABG pO2 ABG pO2 ABG HCO3 ABG Base Excess ABG Hemoglobin Oxyhemoglobin Sodium Potassium Chloride Carbon Dioxide BUN Creatinine Glucose POC Glucose 158 H 120 H 142 H Calcium Phosphorus Magnesium Iron TIBC Transferrin Ferritin ALT Alkaline Phosphatase Total Creatine Kinase CK-MB (CK-2) Rel Index Troponin T Albumin LDL Cholesterol Direct PTH Intact Salicylates Acetaminophen Crossmatch 05/25/19 05/25/19 05/25/19 05:34 14:37 17:34 WBC RBC Hgb Hct MCV MCH MCHC RDW Plt Count Lymph % (Auto) [place] % (Auto) Eos % (Auto) Baso % (Auto) Lymph # [place] # Eos # Baso # Seg Neutrophils % Seg Neuts % (Manual) Lymphocytes % (Manual) Eosinophils % (Manual) Seg Neutrophils # Lymphocytes # (Manual) Eosinophils # (Manual) PT INR D-Dimer POC ABG pH POC ABG pCO2 POC ABG pO2 ABG pO2 ABG HCO3 ABG Base Excess ABG Hemoglobin Oxyhemoglobin Sodium Potassium Chloride Carbon Dioxide BUN Creatinine Glucose POC Glucose 128 H 199 H 185 H Calcium Phosphorus Magnesium Iron TIBC Transferrin Ferritin ALT Alkaline Phosphatase Total Creatine Kinase CK-MB (CK-2) Rel Index Troponin T Albumin LDL Cholesterol Direct PTH Intact Salicylates Acetaminophen Crossmatch 05/26/19 05/26/19 05/26/19 06:21 11:39 17:47 WBC RBC Hgb Hct MCV MCH MCHC RDW Plt Count Lymph % (Auto) [place] % (Auto) Eos % (Auto) Baso % (Auto) Lymph # [place] # Eos # Baso # Seg Neutrophils % Seg Neuts % (Manual) Lymphocytes % (Manual) Eosinophils % (Manual) Seg Neutrophils # Lymphocytes # (Manual) Eosinophils # (Manual) PT INR D-Dimer POC ABG pH POC ABG pCO2 POC ABG pO2 ABG pO2 ABG HCO3 ABG Base Excess ABG Hemoglobin Oxyhemoglobin Sodium Potassium Chloride Carbon Dioxide BUN Creatinine Glucose POC Glucose 110 H 129 H 177 H Calcium Phosphorus Magnesium Iron TIBC Transferrin Ferritin ALT Alkaline Phosphatase Total Creatine Kinase CK-MB (CK-2) Rel Index Troponin T Albumin LDL Cholesterol Direct PTH Intact Salicylates Acetaminophen Crossmatch 05/27/19 05/27/19 05/27/19 00:02 06:40 13:41 WBC RBC Hgb Hct MCV MCH MCHC RDW Plt Count Lymph % (Auto) [place] % (Auto) Eos % (Auto) Baso % (Auto) Lymph # [place] # Eos # Baso # Seg Neutrophils % Seg Neuts % (Manual) Lymphocytes % (Manual) Eosinophils % (Manual) Seg Neutrophils # Lymphocytes # (Manual) Eosinophils # (Manual) PT INR D-Dimer POC ABG pH POC ABG pCO2 POC ABG pO2 ABG pO2 ABG HCO3 ABG Base Excess ABG Hemoglobin Oxyhemoglobin Sodium Potassium Chloride Carbon Dioxide BUN Creatinine Glucose POC Glucose 142 H 186 H 208 H Calcium Phosphorus Magnesium Iron TIBC Transferrin Ferritin ALT Alkaline Phosphatase Total Creatine Kinase CK-MB (CK-2) Rel Index Troponin T Albumin LDL Cholesterol Direct PTH Intact Salicylates Acetaminophen Crossmatch 05/27/19 05/27/19 05/28/19 17:03 23:36 06:46 WBC RBC Hgb Hct MCV MCH MCHC RDW Plt Count Lymph % (Auto) [place] % (Auto) Eos % (Auto) Baso % (Auto) Lymph # [place] # Eos # Baso # Seg Neutrophils % Seg Neuts % (Manual) Lymphocytes % (Manual) Eosinophils % (Manual) Seg Neutrophils # Lymphocytes # (Manual) Eosinophils # (Manual) PT INR D-Dimer POC ABG pH POC ABG pCO2 POC ABG pO2 ABG pO2 ABG HCO3 ABG Base Excess ABG Hemoglobin Oxyhemoglobin Sodium Potassium Chloride Carbon Dioxide BUN Creatinine Glucose POC Glucose 195 H 169 H 125 H Calcium Phosphorus Magnesium Iron TIBC Transferrin Ferritin ALT Alkaline Phosphatase Total Creatine Kinase CK-MB (CK-2) Rel Index Troponin T Albumin LDL Cholesterol Direct PTH Intact Salicylates Acetaminophen Crossmatch 05/28/19 05/28/19 05/28/19 10:57 10:57 10:57 WBC 11.4 H RBC 3.05 L Hgb 7.9 L Hct 24.9 L MCV 82 L MCH 26 L MCHC RDW 21.6 H Plt Count Lymph % (Auto) 7.5 L [place] % (Auto) 7.8 H Eos % (Auto) Baso % (Auto) Lymph # 0.9 L [place] # 0.9 H Eos # 0.5 H Baso # Seg Neutrophils % 79.5 H Seg Neuts % (Manual) Lymphocytes % (Manual) Eosinophils % (Manual) Seg Neutrophils # 9.1 H Lymphocytes # (Manual) Eosinophils # (Manual) PT INR D-Dimer POC ABG pH POC ABG pCO2 POC ABG pO2 ABG pO2 ABG HCO3 ABG Base Excess ABG Hemoglobin Oxyhemoglobin Sodium Potassium Chloride 94.0 L Carbon Dioxide BUN 53 H Creatinine 2.9 H Glucose 147 H POC Glucose Calcium Phosphorus Magnesium Iron TIBC Transferrin Ferritin ALT Alkaline Phosphatase 170 H Total Creatine Kinase CK-MB (CK-2) Rel Index Troponin T Albumin 2.2 L LDL Cholesterol Direct PTH Intact 199.5 H Salicylates Acetaminophen Crossmatch 05/28/19 05/28/19 05/28/19 12:02 16:37 23:40 WBC RBC Hgb Hct MCV MCH MCHC RDW Plt Count Lymph % (Auto) [place] % (Auto) Eos % (Auto) Baso % (Auto) Lymph # [place] # Eos # Baso # Seg Neutrophils % Seg Neuts % (Manual) Lymphocytes % (Manual) Eosinophils % (Manual) Seg Neutrophils # Lymphocytes # (Manual) Eosinophils # (Manual) PT INR D-Dimer POC ABG pH POC ABG pCO2 POC ABG pO2 ABG pO2 ABG HCO3 ABG Base Excess ABG Hemoglobin Oxyhemoglobin Sodium Potassium Chloride Carbon Dioxide BUN Creatinine Glucose POC Glucose 181 H 217 H 152 H Calcium Phosphorus Magnesium Iron TIBC Transferrin Ferritin ALT Alkaline Phosphatase Total Creatine Kinase CK-MB (CK-2) Rel Index Troponin T Albumin LDL Cholesterol Direct PTH Intact Salicylates Acetaminophen Crossmatch 05/29/19 05/29/19 05/29/19 06:38 12:49 12:49 WBC RBC Hgb Hct MCV MCH MCHC RDW Plt Count Lymph % (Auto) [place] % (Auto) Eos % (Auto) Baso % (Auto) Lymph # [place] # Eos # Baso # Seg Neutrophils % Seg Neuts % (Manual) Lymphocytes % (Manual) Eosinophils % (Manual) Seg Neutrophils # Lymphocytes # (Manual) Eosinophils # (Manual) PT INR D-Dimer POC ABG pH POC ABG pCO2 POC ABG pO2 ABG pO2 ABG HCO3 ABG Base Excess ABG Hemoglobin Oxyhemoglobin Sodium Potassium Chloride Carbon Dioxide BUN Creatinine Glucose POC Glucose 194 H Calcium Phosphorus Magnesium Iron 21 L TIBC 78 L Transferrin 61 L Ferritin 4009.0 H ALT Alkaline Phosphatase Total Creatine Kinase CK-MB (CK-2) Rel Index Troponin T Albumin LDL Cholesterol Direct PTH Intact Salicylates Acetaminophen Crossmatch 05/29/19 05/30/19 05/30/19 15:01 00:12 05:57 WBC RBC Hgb Hct MCV MCH MCHC RDW Plt Count Lymph % (Auto) [place] % (Auto) Eos % (Auto) Baso % (Auto) Lymph # [place] # Eos # Baso # Seg Neutrophils % Seg Neuts % (Manual) Lymphocytes % (Manual) Eosinophils % (Manual) Seg Neutrophils # Lymphocytes # (Manual) Eosinophils # (Manual) PT INR D-Dimer POC ABG pH POC ABG pCO2 POC ABG pO2 ABG pO2 ABG HCO3 ABG Base Excess ABG Hemoglobin Oxyhemoglobin Sodium Potassium Chloride Carbon Dioxide BUN Creatinine Glucose POC Glucose 172 H 184 H 113 H Calcium Phosphorus Magnesium Iron TIBC Transferrin Ferritin ALT Alkaline Phosphatase Total Creatine Kinase CK-MB (CK-2) Rel Index Troponin T Albumin LDL Cholesterol Direct PTH Intact Salicylates Acetaminophen Crossmatch 05/30/19 05/30/19 05/30/19 11:56 17:00 23:50 WBC RBC Hgb Hct MCV MCH MCHC RDW Plt Count Lymph % (Auto) [place] % (Auto) Eos % (Auto) Baso % (Auto) Lymph # [place] # Eos # Baso # Seg Neutrophils % Seg Neuts % (Manual) Lymphocytes % (Manual) Eosinophils % (Manual) Seg Neutrophils # Lymphocytes # (Manual) Eosinophils # (Manual) PT INR D-Dimer POC ABG pH POC ABG pCO2 POC ABG pO2 ABG pO2 ABG HCO3 ABG Base Excess ABG Hemoglobin Oxyhemoglobin Sodium Potassium Chloride Carbon Dioxide BUN Creatinine Glucose POC Glucose 170 H 155 H 114 H Calcium Phosphorus Magnesium Iron TIBC Transferrin Ferritin ALT Alkaline Phosphatase Total Creatine Kinase CK-MB (CK-2) Rel Index Troponin T Albumin LDL Cholesterol Direct PTH Intact Salicylates Acetaminophen Crossmatch 05/31/19 05/31/19 05/31/19 06:48 11:29 16:48 WBC RBC Hgb Hct MCV MCH MCHC RDW Plt Count Lymph % (Auto) [place] % (Auto) Eos % (Auto) Baso % (Auto) Lymph # [place] # Eos # Baso # Seg Neutrophils % Seg Neuts % (Manual) Lymphocytes % (Manual) Eosinophils % (Manual) Seg Neutrophils # Lymphocytes # (Manual) Eosinophils # (Manual) PT INR D-Dimer POC ABG pH POC ABG pCO2 POC ABG pO2 ABG pO2 ABG HCO3 ABG Base Excess ABG Hemoglobin Oxyhemoglobin Sodium Potassium Chloride Carbon Dioxide BUN Creatinine Glucose POC Glucose 132 H 167 H 142 H Calcium Phosphorus Magnesium Iron TIBC Transferrin Ferritin ALT Alkaline Phosphatase Total Creatine Kinase CK-MB (CK-2) Rel Index Troponin T Albumin LDL Cholesterol Direct PTH Intact Salicylates Acetaminophen Crossmatch 05/31/19 06/01/19 06/01/19 23:05 06:00 06:45 WBC RBC Hgb Hct MCV MCH MCHC RDW Plt Count Lymph % (Auto) [place] % (Auto) Eos % (Auto) Baso % (Auto) Lymph # [place] # Eos # Baso # Seg Neutrophils % Seg Neuts % (Manual) Lymphocytes % (Manual) Eosinophils % (Manual) Seg Neutrophils # Lymphocytes # (Manual) Eosinophils # (Manual) PT INR D-Dimer POC ABG pH POC ABG pCO2 POC ABG pO2 ABG pO2 ABG HCO3 ABG Base Excess ABG Hemoglobin Oxyhemoglobin Sodium Potassium Chloride Carbon Dioxide BUN Creatinine Glucose POC Glucose 133 H 146 H Calcium Phosphorus Magnesium Iron TIBC Transferrin Ferritin ALT Alkaline Phosphatase Total Creatine Kinase CK-MB (CK-2) Rel Index Troponin T Albumin LDL Cholesterol Direct PTH Intact Salicylates Acetaminophen Crossmatch See Detail 06/01/19 06/01/19 06/01/19 17:10 20:00 20:00 WBC RBC Hgb Hct MCV MCH MCHC RDW Plt Count Lymph % (Auto) [place] % (Auto) Eos % (Auto) Baso % (Auto) Lymph # [place] # Eos # Baso # Seg Neutrophils % Seg Neuts % (Manual) Lymphocytes % (Manual) Eosinophils % (Manual) Seg Neutrophils # Lymphocytes # (Manual) Eosinophils # (Manual) PT INR D-Dimer POC ABG pH POC ABG pCO2 POC ABG pO2 ABG pO2 ABG HCO3 ABG Base Excess ABG Hemoglobin Oxyhemoglobin Sodium Potassium Chloride Carbon Dioxide BUN Creatinine Glucose POC Glucose 162 H Calcium Phosphorus Magnesium Iron 17 L TIBC 80 L Transferrin Ferritin 3849.0 H ALT Alkaline Phosphatase Total Creatine Kinase CK-MB (CK-2) Rel Index Troponin T Albumin LDL Cholesterol Direct PTH Intact Salicylates Acetaminophen Crossmatch 06/01/19 06/01/19 06/01/19 23:56 Unknown Unknown WBC RBC 2.37 L Hgb 6.1 L Hct 19.1 L* MCV 81 L MCH 26 L MCHC RDW 21.5 H Plt Count Lymph % (Auto) [place] % (Auto) Eos % (Auto) Baso % (Auto) Lymph # [place] # Eos # Baso # Seg Neutrophils % Seg Neuts % (Manual) Lymphocytes % (Manual) Eosinophils % (Manual) Seg Neutrophils # Lymphocytes # (Manual) Eosinophils # (Manual) PT INR D-Dimer POC ABG pH POC ABG pCO2 POC ABG pO2 ABG pO2 ABG HCO3 ABG Base Excess ABG Hemoglobin Oxyhemoglobin Sodium 135 L Potassium Chloride 92.4 L Carbon Dioxide BUN 80 H Creatinine 4.4 H D Glucose 121 H POC Glucose 159 H Calcium Phosphorus Magnesium Iron TIBC Transferrin Ferritin ALT Alkaline Phosphatase Total Creatine Kinase CK-MB (CK-2) Rel Index Troponin T Albumin LDL Cholesterol Direct PTH Intact Salicylates Acetaminophen Crossmatch 06/02/19 06/02/19 06/02/19 05:40 12:00 12:03 WBC RBC Hgb 7.6 L Hct 24.1 L MCV MCH MCHC RDW Plt Count Lymph % (Auto) [place] % (Auto) Eos % (Auto) Baso % (Auto) Lymph # [place] # Eos # Baso # Seg Neutrophils % Seg Neuts % (Manual) Lymphocytes % (Manual) Eosinophils % (Manual) Seg Neutrophils # Lymphocytes # (Manual) Eosinophils # (Manual) PT INR D-Dimer POC ABG pH POC ABG pCO2 POC ABG pO2 ABG pO2 ABG HCO3 ABG Base Excess ABG Hemoglobin Oxyhemoglobin Sodium Potassium Chloride Carbon Dioxide BUN Creatinine Glucose POC Glucose 108 H 152 H Calcium Phosphorus Magnesium Iron TIBC Transferrin Ferritin ALT Alkaline Phosphatase Total Creatine Kinase CK-MB (CK-2) Rel Index Troponin T Albumin LDL Cholesterol Direct PTH Intact Salicylates Acetaminophen Crossmatch 06/02/19 06/02/19 06/03/19 16:59 23:57 05:37 WBC RBC Hgb Hct MCV MCH MCHC RDW Plt Count Lymph % (Auto) [place] % (Auto) Eos % (Auto) Baso % (Auto) Lymph # [place] # Eos # Baso # Seg Neutrophils % Seg Neuts % (Manual) Lymphocytes % (Manual) Eosinophils % (Manual) Seg Neutrophils # Lymphocytes # (Manual) Eosinophils # (Manual) PT INR D-Dimer POC ABG pH POC ABG pCO2 POC ABG pO2 ABG pO2 ABG HCO3 ABG Base Excess ABG Hemoglobin Oxyhemoglobin Sodium Potassium Chloride Carbon Dioxide BUN Creatinine Glucose POC Glucose 193 H 131 H 141 H Calcium Phosphorus Magnesium Iron TIBC Transferrin Ferritin ALT Alkaline Phosphatase Total Creatine Kinase CK-MB (CK-2) Rel Index Troponin T Albumin LDL Cholesterol Direct PTH Intact Salicylates Acetaminophen Crossmatch 06/03/19 06/03/19 06/04/19 18:50 23:57 06:11 WBC RBC Hgb Hct MCV MCH MCHC RDW Plt Count Lymph % (Auto) [place] % (Auto) Eos % (Auto) Baso % (Auto) Lymph # [place] # Eos # Baso # Seg Neutrophils % Seg Neuts % (Manual) Lymphocytes % (Manual) Eosinophils % (Manual) Seg Neutrophils # Lymphocytes # (Manual) Eosinophils # (Manual) PT INR D-Dimer POC ABG pH POC ABG pCO2 POC ABG pO2 ABG pO2 ABG HCO3 ABG Base Excess ABG Hemoglobin Oxyhemoglobin Sodium Potassium Chloride Carbon Dioxide BUN Creatinine Glucose POC Glucose 161 H 127 H 179 H Calcium Phosphorus Magnesium Iron TIBC Transferrin Ferritin ALT Alkaline Phosphatase Total Creatine Kinase CK-MB (CK-2) Rel Index Troponin T Albumin LDL Cholesterol Direct PTH Intact Salicylates Acetaminophen Crossmatch
[2019-06-04] MEDS: IPRATROPIUM/ALBUTEROL SULFATE 3 ML AMPUL.NEB IH SCH ×2 (08:39→15:46)
[2019-06-04] MEDS: SODIUM HYPOCHLORITE, DAKIN'S 1/2 STRENGTH (0.25%) 473 ML TOPICAL SOLN TP SCH (09:40)
[2019-06-04] MEDS: SERTRALINE 100 MG TAB PO SCH (09:40)
[2019-06-04] MEDS: FAMOTIDINE 20 MG TAB PO SCH (09:40)
[2019-06-04] MEDS: risperiDONE 1 MG TAB PO SCH (09:40)
--- NOTE | 2019-06-04 11:22 | Progress Note ---
Assessment and Plan Assessment: * End stage renal disease (outpatient TTS schedule) * Acute hypoxic respiratory failure s/p trach * s/p KEON pneumonia --Sputum cx: MDR Acinetobacter * Cardiomyopathy - EF 35-40% * Atrial fibrillation * History of CVA * Anemia secondary to ESRD * Secondary hyperparathyroidism * Decubitis ulcer Plan * Will stop HD MWF via LUE AVG given hospice status; please let us know if there are any changes to his overall goals of care * ID following - recommendations appreciated * Nutrition per primary team * Dose medications for renal function * Epogen 20k TIW prn * Overall prognosis remains poor; family now accepting hospice care; will contin ue to follow as needed We will continue to follow patient for renal related issues. Thank you for this consult. Subjective Date of service: 06/04/19 Principal diagnosis: Respiratory failure, acute on chronic systolic HF, ESRD Interval history: Patient likely to go to hospice per hospitalist discussion with family. Has been tolerating HD sessions per HD nurses with minimal fluid removal. Patient remains at baseline poor mental status. Objective - Exam Narrative Exam: General appearance: chronically ill, trached, frail EENT: normocephalic Neck: trach collar in place Respiratory: coarse mechanical breath sounds bilaterally Cardiology: regular, S1S2, no edema Gastrointestinal: PEG and colostomy noted Integumentary: warm and dry Psychiatric: unable to assess - Vital Signs Vital signs: Vital Signs - 12hr 06/03/19 06/04/19 06/04/19 23:42 04:25 05:47 Temperature 101.9 F H 99.4 F Pulse Rate 115 H 107 H Pulse Rate [ Anterior Bilateral Throughout] Respiratory 20 16 Rate Respiratory Rate [Anterior Bilateral Throughout] Blood Pressure 108/65 115/52 O2 Sat by Pulse 99 100 Oximetry O2 Sat by Pulse 99 Oximetry [ Assessment] 06/04/19 06/04/19 06/04/19 08:00 08:21 08:42 Temperature Pulse Rate Pulse Rate [ 111 H Anterior Bilateral Throughout] Respiratory 16 Rate Respiratory 20 Rate [Anterior Bilateral Throughout] Blood Pressure O2 Sat by Pulse Oximetry O2 Sat by Pulse 98 Oximetry [ Assessment] - Lab 06/02/19 12:00 06/01/19 Unknown Most recent lab results ABG pH 7.424 pH Units (7.350-7.450) 03/19/19 04:23 ABG pCO2 48.0 mm Hg 03/19/19 04:23 ABG pO2 78.3 mm Hg (80.0-90.0) L 03/19/19 04:23 ABG HCO3 30.7 mmol/L (20.0-26.0) H 03/19/19 04:23 ABG O2 Saturation 97.0 % (95.0-99.0) 03/19/19 04:23 Calcium 9.6 mg/dL (8.4-10.2) 06/01/19 Unknown Phosphorus 2.60 mg/dL (2.5-4.5) 05/28/19 10:57 Magnesium 2.70 mg/dL (1.7-2.3) H 03/30/19 10:13 Medications & Allergies - Medications Allergies/Adverse Reactions: Allergies haloperidol [From Haldol] Adverse Reaction (Verified 03/13/18 12:10) Unknown haloperidol lactate [From Haldol] Adverse Reaction (Verified 03/13/18 12:10) Unknown Home Medications: Home Medications Medication Instructions Recorded Confirmed Last Taken Type risperiDONE [RisperDAL] 1 mg PO QAM 03/13/18 02/21/19 Unknown History Sertraline [Zoloft] 100 mg PO QDAY 08/26/18 02/21/19 Unknown History Polyethylene Glycol 3350 [Miralax 17 gm PO QDAY #30 packet 11/05/18 02/21/19 Unknown Rx 3350] Aspirin EC [Halfprin EC] 81 mg PO DAILY #30 11/19/18 02/21/19 Unknown Rx Docusate Sodium [Colace CAP] 100 mg PO BID #60 11/19/18 02/21/19 Unknown Rx Folic Acid [Folvite] 1 mg PO DAILY #30 tab 11/19/18 02/21/19 Unknown Rx Famotidine [Pepcid] 20 mg PO DAILY tablet 12/08/18 02/21/19 Unknown Rx Sevelamer Carbonate [Renvela] 800 mg PO TIDWM tablet 12/08/18 02/21/19 Unknown Rx Acetaminophen [Acetaminophen TAB] 650 mg PO Q12H PRN 12/15/18 02/21/19 Unknown History Insulin Aspart (Nf) [NovoLOG 100 See Protocol SQ QWEEK 12/15/18 02/21/19 Unknown History UNITS/ML VIAL] Ipratropium/Albuterol Sulfate 1 ampul IH TIDRT #120 ampul.neb 06/03/19 Unknown Rx [DUONEB *Not for PRN Use*] Active Medications: Generic Name Dose Route Start Last Admin Trade Name Freq PRN Reason Stop Dose Admin Acetaminophen 650 mg 05/18/19 23:33 06/03/19 23:52 Tylenol PO 650 mg Q6HR PRN Administration PAIN Albuterol/Ipratropium 1 ampul 02/24/19 20:00 06/04/19 08:39 Duoneb *Not For Prn Use* IH 1 ampul TIDRT SANCHEZ Administration Lipase/Protease/Amylase 1 each 04/10/19 15:[address] 10,500 Unit FEEDTUBE PRN PRN For Clogged Feeding Tube Epoetin Solitario 20,000 unit 03/24/19 11:17 06/03/19 11:40 Procrit IV 20,000 unit UMA PRN Administration hemodialysis Famotidine 20 mg 02/23/19 10:00 06/04/19 09:40 Pepcid PO 20 mg DAILY SANCHEZ Administration Insulin Human Regular 0 units 02/26/19 12:00 06/04/19 06:08 Humulin R SUB-Q 1 units Q6HR SANCHEZ Administration Protocol Risperidone 1 mg 02/25/19 13:00 06/04/19 09:40 Risperdal PO 1 mg DAILY SANCHEZ Administration Sertraline HCl 100 mg 02/25/19 13:00 06/04/19 09:40 Zoloft PO 100 mg DAILY SANCHEZ Administration Simple Syrup 15 ml 04/10/19 15:16 Simple Syrup FEEDTUBE PRN PRN Hypoglycemia Simple Syrup 30 ml 04/10/19 15:16 Simple Syrup FEEDTUBE PRN PRN Hypoglycemia Sodium Bicarbonate 325 mg 04/10/19 15:16 Sodium Bicarbonate FEEDTUBE PRN PRN For Clogged Feeding Tube Sodium Hypochlorite 1 applic 04/01/19 13:00 06/04/19 09:40 Dakin's Half Strength TP 1 applicatio BID SANCHEZ Administration
--- NOTE | 2019-06-04 12:24 | Discharge Summary ---
Providers - Providers Date of Admission: 02/21/19 22:19 Attending physician: JAY HYLTON MD 02/21/19 18:24 Consult to Dietitian/Nutrition [CONS] Routine Physician Instructions: Reason For Exam: Reason for Consult: Evaluate nutritional intake Consult to Physician [CONS] Urgent Comment: Dr. Vargas spoke with Dr. Kee @ [id number] Consulting Provider: KAYLEE KEE Physician Instructions: Reason For Exam: resp failure Consult to Physician [CONS] Urgent Comment: Dr. Vargas spoke with Dr. Pierre @ [id number] Consulting Provider: DONG GOMEZ Physician Instructions: Reason For Exam: esrd 02/22/19 11:22 Consult to Physician [CONS] Routine Comment: Spoke to Boley @ at 15:46- [facility] Consulting Provider: POPPY GARZA Physician Instructions: Reason For Exam: evaluate left arm AV graft 02/23/19 05:12 Consult to Wound/ET Nurse [CONS] Routine Reason For Exam: wound eval 02/23/19 12:15 Consult to Dietitian/Nutrition [CONS] Routine Physician Instructions: Reason For Exam: Tube feeding Reason for Consult: Write/Manage Tube Feeding 02/28/19 12:11 Consult to Physician [CONS] Routine Comment: Consulting Provider: DELILAH TEIXEIRA Physician Instructions: Trach and Peg placement, Reason For Exam: Trach and Peg placement 04/04/19 11:00 Consult to Physician [CONS] Routine Comment: Consulting Provider: JAY PERSAUD Physician Instructions: Reason For Exam: fistula , ? stenosed 04/21/19 12:06 Speech Therapy Eval for Passy-Brit Valve [CONS] Routine Reason For Exam: Passy brit valve trials 05/19/19 08:21 Consult to Physician [CONS] Routine Comment: Consulting Provider: TREVOR GARCIA Physician Instructions: Reason For Exam: fever 05/27/19 12:00 Consult to Wound/ET Nurse [CONS] Routine Reason For Exam: wound eval for wound vac [facility] Reason for admission: respiraory failure Condition: Poor Hospital course: Patient is a 63-year-old -[place] man from [facility] with a plethora of co-morbidities including blindness, CVA, CHF, PPM/ICD, loop recorder since 2012 that is MRI compatible, IDDM type 2, sepsis left foot ulcer, afib, ESRD with complications on HD MWF, hypertension, AOCD and GERD who presented to the ED with hypotensive after intubation in the emergency room. Still intubated, diagnosed with fluid overload, pleural effusion. Patient has had recurrent admission in the hospital for similar reason and was recently discharged from the hospital following treatment of Severe Sepsis due to Necrotizing Unstagable sacral decubitus ulcer with ostemomylitis. He has been admitted since the 02/21/2019. Trach and PEG was done * Patient is progressively lethargic and spaces out during conversation * Had extensive discussion with patients POA and another family member, and informed me that considering all the discussion that the family members have had they will like to move to comfort measures with hospice and discontinue any aggressive life prolonging measures considering the patients quality of life. This has been discussed with the consultants and they are aslo in agreement that continued management is futuil care considering the patients recurrent admissions, recurrent infections and intermittently worsening mental status. * I have also discussed with the patient about quality of life and he wants to be comfortable. * Further evaluation and discussion with the patient shows that he does not have adequate understanding of his entire medical condition, he does not show understanding of the natural course of his current medical condition. Below is a a summary of his admission work up Acute respiratory failure on mechanical ventilator >96 hrs- NOW EXTUBATED AND TRACH CAPPED Trach placed on 03/03/19 Pulm consult appreciated weaning trial VAP BUNDLE ASPIRATION BUNDLE Continue T-piece Finished therapy for Acinetobacter Per pulmonary and I do agree Agree with ID note. Patient is a DNR. He is not to be placed back on the ventilator. Acetinetobacter was seen in lungs last time, most likely could resurface their again. Remainder for those who are not as familiar with this case. Patient has been in the hospital on this particular stay over 3 months. Acute pulmonary edema, fluid overload on CXR repeat xray intermittently Dialysis Necrotizing Unstagable sacral decubitus ulcer with ostemomyelitis Wound care, Dilated CMP Cardiomyiopathy EF 35-40% Continue diuresis PPM/ICD Acute encephalopathy, probably metabolic or toxic Continues on Mechanical ventilator. ESRD on hemodialysis nephrology following Vascular eval. done re: LUE AV graft, see note Bilateral pleural effusions Anticipate improvement with Permanent atrial fibrillation and flutter Not on anticoagulation because of anemia thrombocytopenia Change noted to BB agent to IV. 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 -Pt is s/p x1 DDVAP RUL atelectasis, nebs as needed DNR poor prognosis Disposition: [id number] ([facility] Time spent for discharge: 35 mins Core Measure Documentation - Palliative Care Palliative Care/ Comfort Measures: Hospice Care - Core Measures Any of the following diagnoses?: none Exam - Physical Exam Narrative exam: Narrative exam: Gen: severely disable, nad, awake, alert x 1, lethargic HEENT: pupils reactive, op dried out, mouth open Neck: supple, trach CVS/Heart: irreg irregular, normal S1S2, pulses present bilaterally Chest/Lungs: diminished bs ymmetrical chest expansion, good air entry bilaterally GI/Abdomen:peg, colostomy present,+bowel sounds, no guarding or rebound /Bladder: no suprapubic tenderness Extermity/Skin: contracted,ulcer left 5th finger, echymosis, multiple pressure ulcers, see wound documentation for detailed exam MSK: no FROM x 4 Neuro: CN 2-12 grossly intact except vision, no new focal deficits Psych: calm - Constitutional Vitals: Temp Pulse Resp BP Pulse Ox 99.4 F 111 H 16 115/52 98 06/04/19 05:47 06/04/19 08:00 06/04/19 08:21 06/04/19 05:47 06/04/19 08:42 Plan Follow up with: KB RODRIGUES MD [Primary Care Provider] - 3-5 Days Prescriptions: Ipratropium/Albuterol Sulfate [DUONEB *Not for PRN Use*] 1 ampul IH TIDRT #120 ampul.neb
[2019-06-04 12:54] VITALS: BP 123/59
[2019-06-04] MEDS ORDERED: FLU VACC QUAD 2019-20 (3 YR UP)/PF 60 MCG/0.5 ML SYRINGE IM ONE (15:00)
== END 2019-06-04 16:45 | disposition hospice, inpatient (51) | DRG 3 ==
LOC: ED 18:02 → CC1 22:19 → IMCU 03-10 17:56 → CC1 03-18 05:55 → IMCU 03-27 17:31 → 4A 04-02 18:18 → 3A 05-20 15:12
PROVIDERS: ADMIT Internal Medicine; ATTEND Internal Medicine
PROC: 5A1955Z Respiratory Ventilation, Greater than 96 Consecutive Hours (ICD-10-PCS; 2019-02-21)
PROC: 4A033R1 Measurement of Arterial Saturation, Peripheral, Percutaneous Approach (ICD-10-PCS; 2019-02-21)
PROC: 5A1D70Z Performance of Urinary Filtration, Intermittent, Less than 6 Hours Per Day (ICD-10-PCS; 2019-02-23)
PROC: 5A1D70Z Performance of Urinary Filtration, Intermittent, Less than 6 Hours Per Day (ICD-10-PCS; 2019-02-25)
PROC: 5A1D70Z Performance of Urinary Filtration, Intermittent, Less than 6 Hours Per Day (ICD-10-PCS; 2019-02-27)
PROC: 5A1D70Z Performance of Urinary Filtration, Intermittent, Less than 6 Hours Per Day (ICD-10-PCS; 2019-03-02)
PROC: 0B113F4 Bypass Trachea to Cutaneous with Tracheostomy Device, Percutaneous Approach (ICD-10-PCS; principal; 2019-03-03)
PROC: 0BJ08ZZ Inspection of Tracheobronchial Tree, Via Natural or Artificial Opening Endoscopic (ICD-10-PCS; 2019-03-03)
PROC: 5A1D70Z Performance of Urinary Filtration, Intermittent, Less than 6 Hours Per Day (ICD-10-PCS; 2019-03-04)
PROC: 5A1D70Z Performance of Urinary Filtration, Intermittent, Less than 6 Hours Per Day (ICD-10-PCS; 2019-03-06)
PROC: 30233N1 Transfusion of Nonautologous Red Blood Cells into Peripheral Vein, Percutaneous Approach (ICD-10-PCS; 2019-03-09)
PROC: 0JPT3XZ Removal of Tunneled Vascular Access Device from Trunk Subcutaneous Tissue and Fascia, Percutaneous Approach (ICD-10-PCS; 2019-03-09)
PROC: 02PY33Z Removal of Infusion Device from Great Vessel, Percutaneous Approach (ICD-10-PCS; 2019-03-09)
PROC: 5A1D70Z Performance of Urinary Filtration, Intermittent, Less than 6 Hours Per Day (ICD-10-PCS; 2019-03-09)
PROC: 5A1D70Z Performance of Urinary Filtration, Intermittent, Less than 6 Hours Per Day (ICD-10-PCS; 2019-03-11)
PROC: 5A1D70Z Performance of Urinary Filtration, Intermittent, Less than 6 Hours Per Day (ICD-10-PCS; 2019-03-13)
PROC: 5A1D70Z Performance of Urinary Filtration, Intermittent, Less than 6 Hours Per Day (ICD-10-PCS; 2019-03-16)
PROC: 5A1D70Z Performance of Urinary Filtration, Intermittent, Less than 6 Hours Per Day (ICD-10-PCS; 2019-03-18)
PROC: 5A1D70Z Performance of Urinary Filtration, Intermittent, Less than 6 Hours Per Day (ICD-10-PCS; 2019-03-20)
PROC: 5A1D70Z Performance of Urinary Filtration, Intermittent, Less than 6 Hours Per Day (ICD-10-PCS; 2019-03-23)
PROC: 5A1D70Z Performance of Urinary Filtration, Intermittent, Less than 6 Hours Per Day (ICD-10-PCS; 2019-03-25)
PROC: 5A1D70Z Performance of Urinary Filtration, Intermittent, Less than 6 Hours Per Day (ICD-10-PCS; 2019-03-27)
PROC: 5A1D70Z Performance of Urinary Filtration, Intermittent, Less than 6 Hours Per Day (ICD-10-PCS; 2019-03-30)
PROC: 5A1D70Z Performance of Urinary Filtration, Intermittent, Less than 6 Hours Per Day (ICD-10-PCS; 2019-04-01)
PROC: 5A1D70Z Performance of Urinary Filtration, Intermittent, Less than 6 Hours Per Day (ICD-10-PCS; 2019-04-03)
PROC: 5A1D70Z Performance of Urinary Filtration, Intermittent, Less than 6 Hours Per Day (ICD-10-PCS; 2019-04-06)
PROC: 05763ZZ Dilation of Left Subclavian Vein, Percutaneous Approach (ICD-10-PCS; 2019-04-07)
PROC: 05783ZZ Dilation of Left Axillary Vein, Percutaneous Approach (ICD-10-PCS; 2019-04-07)
PROC: B51W1ZZ Fluoroscopy of Dialysis Shunt/Fistula using Low Osmolar Contrast (ICD-10-PCS; 2019-04-07)
PROC: 5A1D70Z Performance of Urinary Filtration, Intermittent, Less than 6 Hours Per Day (ICD-10-PCS; 2019-04-08)
PROC: 5A1D70Z Performance of Urinary Filtration, Intermittent, Less than 6 Hours Per Day (ICD-10-PCS; 2019-04-10)
PROC: 5A1D70Z Performance of Urinary Filtration, Intermittent, Less than 6 Hours Per Day (ICD-10-PCS; 2019-04-13)
PROC: 5A1D70Z Performance of Urinary Filtration, Intermittent, Less than 6 Hours Per Day (ICD-10-PCS; 2019-04-15)
PROC: 5A1D70Z Performance of Urinary Filtration, Intermittent, Less than 6 Hours Per Day (ICD-10-PCS; 2019-04-17)
PROC: 5A1D70Z Performance of Urinary Filtration, Intermittent, Less than 6 Hours Per Day (ICD-10-PCS; 2019-04-20)
PROC: 5A1D70Z Performance of Urinary Filtration, Intermittent, Less than 6 Hours Per Day (ICD-10-PCS; 2019-04-22)
PROC: 5A1D70Z Performance of Urinary Filtration, Intermittent, Less than 6 Hours Per Day (ICD-10-PCS; 2019-04-24)
PROC: 5A1D70Z Performance of Urinary Filtration, Intermittent, Less than 6 Hours Per Day (ICD-10-PCS; 2019-04-27)
PROC: 5A1D70Z Performance of Urinary Filtration, Intermittent, Less than 6 Hours Per Day (ICD-10-PCS; 2019-04-29)
PROC: 5A1D70Z Performance of Urinary Filtration, Intermittent, Less than 6 Hours Per Day (ICD-10-PCS; 2019-05-01)
PROC: 5A1D70Z Performance of Urinary Filtration, Intermittent, Less than 6 Hours Per Day (ICD-10-PCS; 2019-05-04)
PROC: 5A1D70Z Performance of Urinary Filtration, Intermittent, Less than 6 Hours Per Day (ICD-10-PCS; 2019-05-06)
PROC: 5A1D70Z Performance of Urinary Filtration, Intermittent, Less than 6 Hours Per Day (ICD-10-PCS; 2019-05-08)
PROC: 5A1D70Z Performance of Urinary Filtration, Intermittent, Less than 6 Hours Per Day (ICD-10-PCS; 2019-05-11)
PROC: 5A1D70Z Performance of Urinary Filtration, Intermittent, Less than 6 Hours Per Day (ICD-10-PCS; 2019-05-13)
PROC: 5A1D70Z Performance of Urinary Filtration, Intermittent, Less than 6 Hours Per Day (ICD-10-PCS; 2019-05-15)
PROC: 5A1D70Z Performance of Urinary Filtration, Intermittent, Less than 6 Hours Per Day (ICD-10-PCS; 2019-05-18)
PROC: 5A1D70Z Performance of Urinary Filtration, Intermittent, Less than 6 Hours Per Day (ICD-10-PCS; 2019-05-20)
PROC: 5A1D70Z Performance of Urinary Filtration, Intermittent, Less than 6 Hours Per Day (ICD-10-PCS; 2019-05-22)
PROC: 5A1D70Z Performance of Urinary Filtration, Intermittent, Less than 6 Hours Per Day (ICD-10-PCS; 2019-05-25)
PROC: 5A1D70Z Performance of Urinary Filtration, Intermittent, Less than 6 Hours Per Day (ICD-10-PCS; 2019-05-27)
PROC: 5A1D70Z Performance of Urinary Filtration, Intermittent, Less than 6 Hours Per Day (ICD-10-PCS; 2019-05-29)
PROC: 5A1D70Z Performance of Urinary Filtration, Intermittent, Less than 6 Hours Per Day (ICD-10-PCS; 2019-06-01)
PROC: 5A1D70Z Performance of Urinary Filtration, Intermittent, Less than 6 Hours Per Day (ICD-10-PCS; 2019-06-03)
DX: A41.89 Other specified sepsis (principal); L89.894 Pressure ulcer of other site, stage 4; N18.6 End stage renal disease; J18.9 Pneumonia, unspecified organism; G92 Toxic encephalopathy; I21.A1 Myocardial infarction type 2; E43 Unspecified severe protein-calorie malnutrition; J96.01 Acute respiratory failure with hypoxia; I50.23 Acute on chronic systolic (congestive) heart failure; L89.154 Pressure ulcer of sacral region, stage 4; N25.81 Secondary hyperparathyroidism of renal origin; I13.2 Hypertensive heart and chronic kidney disease with heart failure and with stage 5 chronic kidney disease, or end stage renal disease; L97.429 Non-pressure chronic ulcer of left heel and midfoot with unspecified severity; I48.92 Unspecified atrial flutter; I42.0 Dilated cardiomyopathy; I48.21 Permanent atrial fibrillation; Z16.24 Resistance to multiple antibiotics; R74.8 Abnormal levels of other serum enzymes; E11.22 Type 2 diabetes mellitus with diabetic chronic kidney disease; D63.1 Anemia in chronic kidney disease; J44.9 Chronic obstructive pulmonary disease, unspecified; F03.90 Unspecified dementia, unspecified severity, without behavioral disturbance, psychotic disturbance, mood disturbance, and anxiety; E11.621 Type 2 diabetes mellitus with foot ulcer; E87.6 Hypokalemia; K21.9 Gastro-esophageal reflux disease without esophagitis; F20.9 Schizophrenia, unspecified; H54.8 Legal blindness, as defined in USA; Z82.49 Family history of ischemic heart disease and other diseases of the circulatory system; Z99.2 Dependence on renal dialysis; Z90.89 Acquired absence of other organs; Z90.49 Acquired absence of other specified parts of digestive tract; Z88.8 Allergy status to other drugs, medicaments and biological substances; Z79.899 Other long term (current) drug therapy; Z79.82 Long term (current) use of aspirin; Z79.4 Long term (current) use of insulin; Z95.810 Presence of automatic (implantable) cardiac defibrillator; Z93.3 Colostomy status; Z86.73 Personal history of transient ischemic attack (TIA), and cerebral infarction without residual deficits; I27.20 Pulmonary hypertension, unspecified; L89.626 Pressure-induced deep tissue damage of left heel; Z66 Do not resuscitate; Z51.5 Encounter for palliative care
CPT/HCPCS: 36415; 36430; 36600; 36902; 70450; 71045; 71275; 74018; 76937; 80048; 80053; 80061; 80074; 80320; 82140; 82270; 82550; 82553; 82728; 82803; 82962; 83550; 83735; 83970; 84100; 84132; 84443; 84484; 85007; 85014; 85018; 85025; 85027; 85379; 85610; 85730; 86850; 86900; 86901; 86920; 87040; 87070; 87076; 87186; 87205; 90471; 90686; 93005; 93010; 94002; 94003; 94640; 94644; 94667; 94668; 94669; 94760; 99285; G0378; A6260; C1725; C1769; C1894; G0008; G0480; J0330; J0692; J0885; J1644; J1650; J1815; J2060; J2250; J2405; J2704; J3010; J3480; J7030; J7040; J7050; P9016; Q9967